=== PATIENT | male | born 1950 | race Caucasian/White ===

== ENCOUNTER 2020-09-28 15:49 | Outpatient (REF) | payer MEDICARE, MEDICAID, SELFPAY ==
[2020-09-28 13:50] LABS: Abs Immature Grans 0.04 10^3/uL (0.0-0.06); Absolute Basophil Count 0.09 10^3/uL (0.0-0.2); Absolute Eosinophil Count 0.18 10^3/uL (0.0-0.7); Absolute Lymphocyte Count 1.68 10^3/uL (1.2-3.4); Absolute Monocyte Count 0.87 10^3/uL (0.1-0.8); Absolute Neutrophil Count 5.02 10^3/uL (1.2-6.7); Basophils % 1.1; Eosinophils % 2.3; HCT 35.5 % (40.0-50.0); HGB 12.1 g/dL (13.5-17.5); Immature Grans % 0.5; Lymphocytes % 21.3; MCH 33.2 pg (27.0-33.0); MCHC 34.1 % (32.0-36.0); MCV 97.3 fL (80-95); MPV 11.2 fL (8.0-11.0); Neutrophils % 63.8; Nucleated RBC 0 %; Platelet Count 318 10^3/uL (130-400); RBC 3.65 10^6/uL (4.36-5.78); RDW 11.6 % (11.8-14.1); RDW-SD 41.3 fL; WBC 7.88 10^3/uL (4.4-10.8)
[2020-09-28 13:57] LABS: Iron 103 ug/dL (65-175); Total Iron Binding Capacity 184 ug/dL (250-450); Transferrin Sat 56 % (20-55)
[2020-09-28 14:34] LABS: ALT 23 U/L (16-63); AST 26 U/L (15-37); Alkaline Phosphatase 89 U/L (46-116); Anion Gap 9.7 mmol/L (3-11); BUN 8 mg/dL (7-18); Bilirubin, Total 0.4 mg/dL (0.2-1.0); CO2 25.3 mmol/L (21.0-32.0); CREATININE 0.7 mg/dL (0.70-1.30); Calcium 8.9 mg/dL (8.5-10.1); Chloride 92 mmol/L (98-107); Folate 19.9 ng/mL (8.6-20.0); Glucose 93 mg/dL (74-106); Magnesium 1.7 mg/dL (1.8-2.4); Potassium 4.6 mmol/L (3.5-5.1); Sodium 127 mmol/L (136-145); TSH (W/Ref FT4) 1.02 uIU/mL (0.36-3.74); Total Protein 7.4 g/dL (6.4-8.2); Vitamin B12 281 pg/mL (193-986)
[2020-09-28 14:47] LABS: Ferritin 1291 ng/mL (26-388)
== END 2020-09-28 15:50 | disposition home or self-care (01) ==
LOC: LBN 15:49
PROVIDERS: Visit Provider Internal Medicine
DX: I89.0 Lymphedema, not elsewhere classified (principal); I25.10 Atherosclerotic heart disease of native coronary artery without angina pectoris; D64.9 Anemia, unspecified
CPT/HCPCS: 80053; 82607; 82728; 82746; 83540; 83550; 83735; 84443; 85025

== ENCOUNTER 2020-10-04 15:39 | Outpatient (REF) | payer MEDICARE, MEDICAID, SELFPAY ==
[2020-10-04 16:52] LABS: Anion Gap 7.6 mmol/L (3-11); BUN 8 mg/dL (7-18); CO2 25.4 mmol/L (21.0-32.0); CREATININE 0.6 mg/dL (0.70-1.30); Calcium 8.8 mg/dL (8.5-10.1); Chloride 98 mmol/L (98-107); Glucose 95 mg/dL (74-106); Potassium 4.5 mmol/L (3.5-5.1); Sodium 131 mmol/L (136-145)
== END 2020-10-04 15:40 | disposition home or self-care (01) ==
LOC: LBN 15:39
PROVIDERS: Visit Provider Internal Medicine
DX: E83.42 Hypomagnesemia (principal); R62.7 Adult failure to thrive; M62.81 Muscle weakness (generalized)
CPT/HCPCS: 80048

== ENCOUNTER 2020-10-12 16:08 | Outpatient (REF) | payer MEDICARE, MEDICAID, SELFPAY ==
[2020-10-12 17:04] LABS: BUN 9 mg/dL (7-18); CREATININE 0.6 mg/dL (0.70-1.30); Calcium 8.8 mg/dL (8.5-10.1); Chloride 98 mmol/L (98-107); Glucose 98 mg/dL (74-106); Potassium 4.3 mmol/L (3.5-5.1); Sodium 130 mmol/L (136-145)
== END 2020-10-12 16:09 | disposition home or self-care (01) ==
LOC: LBN 16:08
PROVIDERS: Visit Provider Nurse Practitioner Gerontology
DX: E87.8 Other disorders of electrolyte and fluid balance, not elsewhere classified (principal)
CPT/HCPCS: 80048

== ENCOUNTER 2021-01-15 18:52 | Outpatient (REF) | payer MEDICARE, MEDICAID, SELFPAY ==
[2021-01-15 14:26] LABS: ALT 22 U/L (16-63); AST 18 U/L (15-37); Albumin 2.9 g/dL (3.4-5.0); Alkaline Phosphatase 101 U/L (46-116); Anion Gap 6.7 mmol/L (3-11); BUN 10 mg/dL (7-18); Bilirubin, Total 0.3 mg/dL (0.2-1.0); CO2 30.3 mmol/L (21.0-32.0); CREATININE 0.6 mg/dL (0.70-1.30); Calcium 8.5 mg/dL (8.5-10.1); Chloride 93 mmol/L (98-107); Glucose 85 mg/dL (74-106); Potassium 4.3 mmol/L (3.5-5.1); Sodium 130 mmol/L (136-145); Total Protein 7.1 g/dL (6.4-8.2)
== END 2021-01-15 18:53 | disposition home or self-care (01) ==
LOC: LBN 18:52
PROVIDERS: Visit Provider Nurse Practitioner Gerontology
DX: E87.1 Hypo-osmolality and hyponatremia (principal); E83.42 Hypomagnesemia; K70.9 Alcoholic liver disease, unspecified; R62.7 Adult failure to thrive
CPT/HCPCS: 80053

== ENCOUNTER 2021-01-22 18:11 | Outpatient (REF) | payer MEDICARE, MEDICAID, SELFPAY ==
[2021-01-22 19:44] LABS: Anion Gap 6.7 mmol/L (3-11); BUN 9 mg/dL (7-18); CO2 29.3 mmol/L (21.0-32.0); CREATININE 0.5 mg/dL (0.70-1.30); Calcium 8.6 mg/dL (8.5-10.1); Chloride 97 mmol/L (98-107); Glucose 97 mg/dL (74-106); Potassium 3.9 mmol/L (3.5-5.1); Sodium 133 mmol/L (136-145)
== END 2021-01-22 18:12 | disposition home or self-care (01) ==
LOC: LBN 18:11
PROVIDERS: Visit Provider Internal Medicine
DX: R60.9 Edema, unspecified (principal); I89.0 Lymphedema, not elsewhere classified
CPT/HCPCS: 80048

== ENCOUNTER 2021-03-20 19:36 | Outpatient (REF) | payer MEDICARE, MEDICAID, SELFPAY ==
[2021-03-20 17:18] LABS: ALT 29 U/L (16-63); AST 26 U/L (15-37); Albumin 3.3 g/dL (3.4-5.0); Alkaline Phosphatase 94 U/L (46-116); Anion Gap 8.8 mmol/L (3-11); BUN 15 mg/dL (7-18); Bilirubin, Total 0.2 mg/dL (0.2-1.0); CO2 26.2 mmol/L (21.0-32.0); CREATININE 0.9 mg/dL (0.70-1.30); Calcium 8.9 mg/dL (8.5-10.1); Chloride 94 mmol/L (98-107); Glucose 98 mg/dL (74-106); Potassium 4.1 mmol/L (3.5-5.1); Sodium 129 mmol/L (136-145); Total Protein 7.4 g/dL (6.4-8.2)
== END 2021-03-20 19:37 | disposition home or self-care (01) ==
LOC: LBN 19:36
PROVIDERS: Visit Provider Nurse Practitioner Gerontology
DX: E87.1 Hypo-osmolality and hyponatremia (principal); E83.42 Hypomagnesemia; K70.9 Alcoholic liver disease, unspecified
CPT/HCPCS: 80053

== ENCOUNTER 2021-03-26 16:36 | Outpatient (REF) | payer MEDICARE, MEDICAID, SELFPAY ==
[2021-03-26 20:07] LABS: Abs Immature Grans 0.03 10^3/uL (0.0-0.06); Absolute Basophil Count 0.01 10^3/uL (0.0-0.2); Absolute Lymphocyte Count 0.75 10^3/uL (1.2-3.4); Absolute Monocyte Count 0.46 10^3/uL (0.1-0.8); Absolute Neutrophil Count 8.09 10^3/uL (1.2-6.7); Basophils % 0.1; HCT 38.3 % (40.0-50.0); HGB 12.8 g/dL (13.5-17.5); Immature Grans % 0.3; MCH 32.6 pg (27.0-33.0); MCHC 33.4 % (32.0-36.0); MCV 97.5 fL (80-95); Monocytes % 4.9; Neutrophils % 86.7; Nucleated RBC 0 %; Platelet Count 209 10^3/uL (130-400); RBC 3.93 10^6/uL (4.36-5.78); RDW 12.9 % (11.8-14.1); RDW-SD 46.4 fL; WBC 9.34 10^3/uL (4.4-10.8)
[2021-03-26 20:30] LABS: Vitamin D 25 Total 17.9 ng/mL (30-100)
[2021-03-26 20:44] LABS: BUN 8 mg/dL (7-18); CREATININE 0.6 mg/dL (0.70-1.30); Calcium 8.6 mg/dL (8.5-10.1); Chloride 89 mmol/L (98-107); Ferritin 1793 ng/mL (26-388); Folate > 20.0 ng/mL (8.6-20.0); Glucose 124 mg/dL (74-106); Iron 101 ug/dL (65-175); Magnesium 1.6 mg/dL (1.8-2.4); Potassium 3.6 mmol/L (3.5-5.1); Sodium 128 mmol/L (136-145); Vitamin B12 549 pg/mL (193-986)
== END 2021-03-26 16:37 | disposition home or self-care (01) ==
LOC: LBN 16:36
PROVIDERS: Visit Provider Nurse Practitioner Gerontology
DX: K70.9 Alcoholic liver disease, unspecified (principal); I89.0 Lymphedema, not elsewhere classified; E87.1 Hypo-osmolality and hyponatremia; R53.1 Weakness; J44.9 Chronic obstructive pulmonary disease, unspecified
CPT/HCPCS: 80048; 82306; 82607; 82728; 82746; 83540; 83735; 85025

== ENCOUNTER 2021-04-10 15:43 | Outpatient (REF) | payer MEDICARE, MEDICAID, SELFPAY ==
[2021-04-10 15:14] LABS: ALT 24 U/L (16-63); AST 17 U/L (15-37); Albumin 2.8 g/dL (3.4-5.0); Alkaline Phosphatase 92 U/L (46-116); Anion Gap 4.9 mmol/L (3-11); BUN 15 mg/dL (7-18); Bilirubin, Total 0.4 mg/dL (0.2-1.0); CO2 30.1 mmol/L (21.0-32.0); CREATININE 0.6 mg/dL (0.70-1.30); Calcium 8.3 mg/dL (8.5-10.1); Chloride 98 mmol/L (98-107); Ferritin 927 ng/mL (26-388); Glucose 95 mg/dL (74-106); Potassium 4.4 mmol/L (3.5-5.1); Sodium 133 mmol/L (136-145); Total Protein 6.5 g/dL (6.4-8.2)
== END 2021-04-10 15:44 | disposition home or self-care (01) ==
LOC: LBN 15:43
PROVIDERS: Visit Provider Nurse Practitioner Gerontology
DX: K70.9 Alcoholic liver disease, unspecified (principal); R53.1 Weakness; U07.1 COVID-19; E83.42 Hypomagnesemia
CPT/HCPCS: 80053; 82728

== ENCOUNTER 2021-04-17 13:50 | Outpatient (REF) | payer MEDICARE, MEDICAID, SELFPAY ==
[2021-04-17 11:45] LABS: Anion Gap 8.3 mmol/L (3-11); BUN 7 mg/dL (7-18); CO2 26.7 mmol/L (21.0-32.0); CREATININE 0.5 mg/dL (0.70-1.30); Calcium 8.6 mg/dL (8.5-10.1); Chloride 90 mmol/L (98-107); Glucose 98 mg/dL (74-106); NT-proBNP 2407 pg/mL (<300); Potassium 5.1 mmol/L (3.5-5.1); Sodium 125 mmol/L (136-145)
== END 2021-04-17 13:51 | disposition home or self-care (01) ==
LOC: LBN 13:50
PROVIDERS: Visit Provider Nurse Practitioner Gerontology
DX: I50.9 Heart failure, unspecified (principal); E87.8 Other disorders of electrolyte and fluid balance, not elsewhere classified
CPT/HCPCS: 80048; 83880

== ENCOUNTER 2021-04-20 14:26 | Outpatient (REF) | payer MEDICARE, MEDICAID, SELFPAY ==
[2021-04-20 16:56] LABS: Anion Gap 4.5 mmol/L (3-11); BUN 8 mg/dL (7-18); CO2 29.5 mmol/L (21.0-32.0); CREATININE 0.6 mg/dL (0.70-1.30); Calcium 8.6 mg/dL (8.5-10.1); Chloride 92 mmol/L (98-107); Glucose 100 mg/dL (74-106); NT-proBNP 1158 pg/mL (<300); Potassium 5.1 mmol/L (3.5-5.1); Sodium 126 mmol/L (136-145)
== END 2021-04-20 14:27 | disposition home or self-care (01) ==
LOC: LBN 14:26
PROVIDERS: Visit Provider Nurse Practitioner Gerontology
DX: I50.9 Heart failure, unspecified (principal); E87.1 Hypo-osmolality and hyponatremia
CPT/HCPCS: 80048; 83880

== ENCOUNTER 2021-05-01 14:34 | Outpatient (REF) | payer MEDICARE, MEDICAID, SELFPAY ==
[2021-05-01 16:02] LABS: ALT 16 U/L (16-63); AST 21 U/L (15-37); Albumin 3.3 g/dL (3.4-5.0); Alkaline Phosphatase 85 U/L (46-116); Anion Gap 6.7 mmol/L (3-11); BUN 10 mg/dL (7-18); Bilirubin, Total 0.4 mg/dL (0.2-1.0); CO2 27.3 mmol/L (21.0-32.0); CREATININE 0.5 mg/dL (0.70-1.30); Calcium 8.8 mg/dL (8.5-10.1); Chloride 92 mmol/L (98-107); Glucose 88 mg/dL (74-106); Potassium 4.7 mmol/L (3.5-5.1); Sodium 126 mmol/L (136-145); Total Protein 7.7 g/dL (6.4-8.2)
== END 2021-05-01 14:35 | disposition home or self-care (01) ==
LOC: LBN 14:34
PROVIDERS: Visit Provider Nurse Practitioner Gerontology
DX: I25.10 Atherosclerotic heart disease of native coronary artery without angina pectoris (principal); E87.8 Other disorders of electrolyte and fluid balance, not elsewhere classified
CPT/HCPCS: 80053

== ENCOUNTER 2021-05-02 09:24 | Outpatient (CLI) | payer MEDICARE, MEDICAID, SELFPAY ==
--- NOTE | 2021-05-02 09:45 | RT.EKG_ITS ---
APPROVED REPORT Exam: Resting ECG Reason for Exam: [facility] Patient Location: O HR:60 bpm ECG Measurements Heart Rate 60 AXIS MN 118 P [id number] QRSd 160 QRS -32 QT 495 T 100 QTc 495 Conclusion A-V dual-paced rhythm with some inhibition...atrial and/or vent inhibition No further analysis attempted due to paced rhythm
== END 2021-05-02 09:25 | disposition home or self-care (01) ==
LOC: DI.CARD 09:55
PROVIDERS: Visit Provider Internal Medicine Cardiovascular Disease
DX: Z95.0 Presence of cardiac pacemaker (principal)
CPT/HCPCS: 93010

== ENCOUNTER → 2021-05-02 09:24 | Outpatient (BNVA) | payer MEDICARE, MEDICAID, SELFPAY | PROVIDERS: Visit Provider Internal Medicine Cardiovascular Disease | DX: Z95.0 Presence of cardiac pacemaker (principal) | CPT/HCPCS: 93005; 93280; 99204 ==

== ENCOUNTER 2021-05-08 16:33 | Outpatient (REF) | payer MEDICARE, MEDICAID, SELFPAY ==
[2021-05-08 14:30] LABS: ALT 18 U/L (16-63); AST 19 U/L (15-37); Albumin 3.2 g/dL (3.4-5.0); Alkaline Phosphatase 88 U/L (46-116); Anion Gap 8.2 mmol/L (3-11); BUN 11 mg/dL (7-18); Bilirubin, Total 0.4 mg/dL (0.2-1.0); CO2 25.8 mmol/L (21.0-32.0); CREATININE 0.5 mg/dL (0.70-1.30); Calcium 8.6 mg/dL (8.5-10.1); Chloride 93 mmol/L (98-107); Glucose 110 mg/dL (74-106); NT-proBNP 544 pg/mL (<300); Potassium 4.8 mmol/L (3.5-5.1); Sodium 127 mmol/L (136-145); Total Protein 7.6 g/dL (6.4-8.2)
== END 2021-05-08 16:34 | disposition home or self-care (01) ==
LOC: LBN 16:33
PROVIDERS: Visit Provider Nurse Practitioner Gerontology
DX: I25.10 Atherosclerotic heart disease of native coronary artery without angina pectoris (principal); E87.8 Other disorders of electrolyte and fluid balance, not elsewhere classified; I50.9 Heart failure, unspecified
CPT/HCPCS: 80053; 83880

== ENCOUNTER 2021-06-19 15:33 | Outpatient (REF) | payer MEDICARE, MEDICAID, SELFPAY ==
[2021-06-19 19:32] LABS: Abs Immature Grans 0.18 10^3/uL (0.0-0.06); Absolute Basophil Count 0.05 10^3/uL (0.0-0.2); Absolute Eosinophil Count 0.05 10^3/uL (0.0-0.7); Absolute Monocyte Count 1.84 10^3/uL (0.1-0.8); Basophils % 0.3; Eosinophils % 0.3; HCT 34.8 % (40.0-50.0); HGB 11.5 g/dL (13.5-17.5); Lymphocytes % 7.8; MCV 99.7 fL (80-95); MPV 11.8 fL (8.0-11.0); Monocytes % 10.2; Neutrophils % 80.4; Platelet Count 244 10^3/uL (130-400); RBC 3.49 10^6/uL (4.36-5.78); RDW-SD 47.8 fL; WBC 18.06 10^3/uL (4.4-10.8)
[2021-06-19 19:33] LABS: Absolute Lymphocyte Count 1.41 10^3/uL (1.2-3.4); Absolute Neutrophil Count 14.52 10^3/uL (1.2-6.7)
[2021-06-19 20:00] LABS: Diff Comment Agrees w/ Instrument; RBC Morphology Normal
[2021-06-19 20:47] LABS: ALT 163 U/L (16-63); AST 96 U/L (15-37); Albumin 3.2 g/dL (3.4-5.0); Alkaline Phosphatase 89 U/L (46-116); Anion Gap 11.5 mmol/L (3-11); BUN 39 mg/dL (7-18); Bilirubin, Total 0.7 mg/dL (0.2-1.0); CO2 24.5 mmol/L (21.0-32.0); CREATININE 1.9 mg/dL (0.70-1.30); Calcium 8.8 mg/dL (8.5-10.1); Chloride 92 mmol/L (98-107); Estimated GFR 35.22 (mL/min/1.73m2); Glucose 118 mg/dL (74-106); Potassium 3.8 mmol/L (3.5-5.1); Sodium 128 mmol/L (136-145); Total Protein 7.6 g/dL (6.4-8.2)
[2021-06-21 05:27] LABS: Vitamin D 25 Total 26.3 ng/mL (30-100)
== END 2021-06-19 15:34 | disposition home or self-care (01) ==
LOC: LBN 15:33
PROVIDERS: Visit Provider Internal Medicine
DX: J44.9 Chronic obstructive pulmonary disease, unspecified (principal)
CPT/HCPCS: 80053; 82306; 85025

== ENCOUNTER 2021-06-20 10:47 | Inpatient (IN) | payer MEDICARE, MEDICAID, SELFPAY ==
[2021-06-20] VITALS (45 sets, daily range): BP systolic 94–123; BP diastolic 43–86; PULSE 41–73; RESP 16–18; TEMP 36.4–37; O2SAT 86–98
--- NOTE | 2021-06-20 11:14 | ED.GENADUL_ITS ---
Discharge Plan Disposition Patient Disposition: [facility] INPATIENT Condition: Stable Discharge Details Clinical Impression: Acute cholecystitis, Sacroiliitis, History of empyema of pleura Admit Date/Time: 06/20/21 17:19 Admit Provider: Virginia Price Attending Provider: Virginia Price Primary Care Provider: Unknown,Unknown ED Provider: Radha Vargas Discharge Data Discharge Date/Time-TO BE ENTERED AT DEPARTURE: 06/20/21 19:22 Medical Decision Making 06/20/21 Dr. Vargas: 1600 --please see Dr. Alegria's note for initial presentation, exam and plan. Case endorsed to follow-up with [facility] general surgery Dr. Carver after he reviewed images with [facility] pulmonology to determine acute versus chronic nature of empyema and whether patient needs urgent transfer to [facility] for surgery for his acute cholecysitis. 70-year-old male who is DNR/DNI from the [facility] with a history of daily alcohol use, obesity, COPD, hypertension, coronary artery disease, depression who was sent from the [facility] for abdominal pain and abnormal LFTs. Work-up noted a white blood cell count of 13, sodium of 123, AST of 61, ALT of 121, alk phos of 96 and normal lipase. Negative UA. COVID-negative. CT abdomen/pelvis noted: Impression: Appearance of the gallbladder is suggestive of acute cholecystitis, no biliary dilatation seen. Left pleural effusion versus empyema, please see above discussion.? Question prior tuberculosis with marked pleural calcification on the right. Multiple soft tissue fluid collections, possible abscesses, right and left buttocks, question associated osteomyelitis of the left iliac bone posteriorly at the level of the SI joint as described above. Dr. Alegria reported to discuss with Dr. Price here who requested potential transfer as patient was noted to have empyema. Patient has been reported to be stable from a respiratory standpoint without complaint of shortness of breath. Dr. Alegria was able to speak with Dr. Carver just prior to leaving and after review with pulmonology, there is no acute change in his CT imaging compared to prior and there is no acute indication for transfer at this time. Case discussed with Dr. Price who discussed with anesthesia and she will admit here. Patient reassessed and he is currently pain-free. His abdomen is soft and nontender without signs of rigidity or guarding. Medical Records Medical records reviewed: Yes I reviewed the patient's medical records. Imaging Data Radiologic Study: Radiologist's impression: CT ABDOMEN ? PELVIS W CLINICAL HISTORY:? abd pain TECHNIQUE:? COMPARISON:? No exams were available for comparison FINDINGS: CT examination of the abdomen and pelvis was performed with bolus infusion of 100 cc of Omnipaque 350. Images obtained through the lung bases show right pleural calcification and pleural blunting.? There is a left pleural fluid collection which is thick- walled and which is incompletely imaged, this measures up to about 12 x 6 cm in diameter and there is associated apparent atelectasis or consolidation versus scarring the left lower lobe. Additional evaluation with chest CT should considered. Note is made of coronary artery calcification and apparent cardiac pacemaker period Liver is grossly unremarkable in appearance.? No biliary dilatation.? There is mildly distended thick-walled gallbladder with small pericholecystic fluid collection and associated fat edema, findings are suggestive of acute cholecystitis. Pancreas appears intact.. Adrenals appear normal bilaterally. Kidneys appear normal with no evidence of renal mass, hydronephrosis, or nephrolithiasis.? Unremarkable bladder. There is no evidence of abdominal or pelvic adenopathy. Abdominal aorta is of normal diameter and no abnormality is seen involving major visceral branches.. Appendix is normal. No evidence diverticulitis or bowel obstruction.? The rectum is somewhat thick-walled, info inflammatory or neoplastic disease not excluded, correlation with sigmoidoscopy or colonoscopy suggested. No significant abdominal wall hernia seen.? Note is made fluid collections in the right buttock which are of intermediate attenuation, approximately 20 mean Hounsfield units.? Largest of these measures about 6 cm in diameter.? Findings are nonspecific but possibility of abscess is raised.? These number at least 5.? The largest lies adjacent to the tip of the right iliac which has associated well-corticated ossicles adjacent to the.? No gross bony erosion seen. There is also a fluid collection seen at the level of the iliac bone at and above SI joint level on the left measuring 10 x 8 x 2 cm and extending across the midline adjacent to posterior aspect of the sacrum and with an apparent associated erosion and mild bony overgrowth the associated iliac.? This has a thick wall and is of intermediate attenuation and contains some calcification, again suspicious for abscess. Impression: Appearance of the gallbladder is suggestive of acute cholecystitis, no biliary dilatation seen. Left pleural effusion versus empyema, please see above discussion.? Question prior tuberculosis with marked pleural calcification on the right. Multiple soft tissue fluid collections, possible abscesses, right and left buttocks, question associated osteomyelitis of the left iliac bone posteriorly at the level of the SI joint as described above. Lab Data Lab results reviewed: Yes I reviewed the patient's lab results. Labs: 06/20/21 15:10 Blood Blood Culture - Pending 06/20/21 15:10 Blood Blood Culture - Pending Laboratory Tests Range/Units 06/20/21 06/20/21 06/20/21 11:25 11:25 11:25 WBC (4.4-10.8) 10^3/uL 13.19 H RBC (4.36-5.78) 10^6/uL 3.43 L Hgb (13.5-17.5) g/dL 11.3 L Hct (40.0-50.0) % 33.2 L MCV (80-95) fL 96.8 H MCH (27.0-33.0) pg 32.9 MCHC (32.0-36.0) % 34.0 RDW (11.8-14.1) % 12.4 Plt Count (130-400) 10^3/uL 271 MPV (8.0-11.0) fL 11.2 H Immature Gran % 0.0 Neutrophils % 82.0 Band Neutrophils % 0 Lymphocytes % 4.0 Atypical Lymphs % 4 Monocytes % 10.0 Eosinophils % 0.0 Basophils % 0.0 Nucleated RBC % (0.0-0.3) % 0.0 Absolute Neutrophils (1.2-6.7) 10^3/uL 10.82 H Absolute Lymphocytes (1.2-3.4) 10^3/uL 1.06 L Absolute Monocytes (0.1-0.8) 10^3/uL 1.32 H Absolute Eosinophils (0.0-0.7) 10^3/uL 0.00 Absolute Basophils (0.0-0.2) 10^3/uL 0.00 RBC Morphology Normal PT (9.3-11.0) sec INR (0.9-1.1) APTT (21.0-27.5) sec Sodium (136-145) mmol/L 123 L* Potassium (3.5-5.1) mmol/L 3.7 Chloride (98-107) mmol/L 88 L Carbon Dioxide (21.0-32.0) mmol/L 24.4 Anion Gap (3-11) mmol/L 10.6 BUN (7-18) mg/dL 39 H Creatinine (0.70-1.30) mg/dL 1.0 D Estimated GFR/1.73 m2 (mL/min/1.73m2) >= 60.00 Glucose (74-106) mg/dL 109 H Calcium (8.5-10.1) mg/dL 8.9 Magnesium (1.8-2.4) mg/dL 2.2 Total Bilirubin (0.2-1.0) mg/dL 0.6 0.5 Conjugated Bilirubin (0.0-0.2) mg/dL 0.2 AST (15-37) U/L 59 H 61 H ALT (16-63) U/L 118 H 121 H Alkaline Phosphatase (46-116) U/L 94 96 Total Protein (6.4-8.2) g/dL 8.4 H 8.3 H Albumin (3.4-5.0) g/dL 3.0 L 2.9 L Lipase (73-393) U/L 45 Urine Color (Yellow) Urine Clarity (Clear) Urine pH (5-8) Ur Specific [place] (1.005-1.025) Urine Protein (Negative) mg/dL Urine Ketones (Negative) mg/dL Urine Blood (Negative) Urine Nitrite (Negative) Urine Bilirubin (Negative) Urine Urobilinogen (Up TO 0.2) EU/dL Ur Leukocyte Esterase (Negative) Urine RBC (0-2) HPF Urine WBC (0-5) HPF Ur Epithelial Cells (Negative) HPF Urine Crystals (Negative) HPF Urine Bacteria (Negative) HPF Urine Casts (Negative) LPF Urine Mucus (Negative) Urine Other (Negative) Ur Culture Indicated? Urine Glucose (Negative) mg/dL Ethyl Alcohol (<10) mg/dL < 3.0 COVID-19 Source SARS-CoV-2 (PCR) (Negative) Range/Units 06/20/21 06/20/21 06/20/21 13:11 14:00 15:15 WBC (4.4-10.8) 10^3/uL RBC (4.36-5.78) 10^6/uL Hgb (13.5-17.5) g/dL Hct (40.0-50.0) % MCV (80-95) fL MCH (27.0-33.0) pg MCHC (32.0-36.0) % RDW (11.8-14.1) % Plt Count (130-400) 10^3/uL MPV (8.0-11.0) fL Immature Gran % Neutrophils % Band Neutrophils % Lymphocytes % Atypical Lymphs % Monocytes % Eosinophils % Basophils % Nucleated RBC % (0.0-0.3) % Absolute Neutrophils (1.2-6.7) 10^3/uL Absolute Lymphocytes (1.2-3.4) 10^3/uL Absolute Monocytes (0.1-0.8) 10^3/uL Absolute Eosinophils (0.0-0.7) 10^3/uL Absolute Basophils (0.0-0.2) 10^3/uL RBC Morphology PT (9.3-11.0) sec INR (0.9-1.1) APTT (21.0-27.5) sec Sodium (136-145) mmol/L Potassium (3.5-5.1) mmol/L Chloride (98-107) mmol/L Carbon Dioxide (21.0-32.0) mmol/L Anion Gap (3-11) mmol/L BUN (7-18) mg/dL Creatinine (0.70-1.30) mg/dL Estimated GFR/1.73 m2 (mL/min/1.73m2) Glucose (74-106) mg/dL Calcium (8.5-10.1) mg/dL Magnesium (1.8-2.4) mg/dL Total Bilirubin (0.2-1.0) mg/dL 0.6 Conjugated Bilirubin (0.0-0.2) mg/dL 0.2 AST (15-37) U/L ALT (16-63) U/L Alkaline Phosphatase (46-116) U/L Total Protein (6.4-8.2) g/dL Albumin (3.4-5.0) g/dL Lipase (73-393) U/L Urine Color (Yellow) Yellow Urine Clarity (Clear) Clear Urine pH (5-8) 6.0 Ur Specific [place] (1.005-1.025) 1.010 Urine Protein (Negative) mg/dL Negative Urine Ketones (Negative) mg/dL Negative Urine Blood (Negative) Trace-intact H Urine Nitrite (Negative) Negative Urine Bilirubin (Negative) Negative Urine Urobilinogen (Up TO 0.2) EU/dL 0.2 Ur Leukocyte Esterase (Negative) Negative Urine RBC (0-2) HPF 0-2 Urine WBC (0-5) HPF Negative Ur Epithelial Cells (Negative) HPF Rare Urine Crystals (Negative) HPF Negative Urine Bacteria (Negative) HPF Few Urine Casts (Negative) LPF Negative Urine Mucus (Negative) Negative Urine Other (Negative) Negative Ur Culture Indicated? No Urine Glucose (Negative) mg/dL Negative Ethyl Alcohol (<10) mg/dL COVID-19 Source Nasal/Nares SARS-CoV-2 (PCR) (Negative) Negative Range/Units 06/20/21 15:15 WBC (4.4-10.8) 10^3/uL RBC (4.36-5.78) 10^6/uL Hgb (13.5-17.5) g/dL Hct (40.0-50.0) % MCV (80-95) fL MCH (27.0-33.0) pg MCHC (32.0-36.0) % RDW (11.8-14.1) % Plt Count (130-400) 10^3/uL MPV (8.0-11.0) fL Immature Gran % Neutrophils % Band Neutrophils % Lymphocytes % Atypical Lymphs % Monocytes % Eosinophils % Basophils % Nucleated RBC % (0.0-0.3) % Absolute Neutrophils (1.2-6.7) 10^3/uL Absolute Lymphocytes (1.2-3.4) 10^3/uL Absolute Monocytes (0.1-0.8) 10^3/uL Absolute Eosinophils (0.0-0.7) 10^3/uL Absolute Basophils (0.0-0.2) 10^3/uL RBC Morphology PT (9.3-11.0) sec 10.4 INR (0.9-1.1) 1.0 APTT (21.0-27.5) sec 27.4 Sodium (136-145) mmol/L Potassium (3.5-5.1) mmol/L Chloride (98-107) mmol/L Carbon Dioxide (21.0-32.0) mmol/L Anion Gap (3-11) mmol/L BUN (7-18) mg/dL Creatinine (0.70-1.30) mg/dL Estimated GFR/1.73 m2 (mL/min/1.73m2) Glucose (74-106) mg/dL Calcium (8.5-10.1) mg/dL Magnesium (1.8-2.4) mg/dL Total Bilirubin (0.2-1.0) mg/dL Conjugated Bilirubin (0.0-0.2) mg/dL AST (15-37) U/L ALT (16-63) U/L Alkaline Phosphatase (46-116) U/L Total Protein (6.4-8.2) g/dL Albumin (3.4-5.0) g/dL Lipase (73-393) U/L Urine Color (Yellow) Urine Clarity (Clear) Urine pH (5-8) Ur Specific [place] (1.005-1.025) Urine Protein (Negative) mg/dL Urine Ketones (Negative) mg/dL Urine Blood (Negative) Urine Nitrite (Negative) Urine Bilirubin (Negative) Urine Urobilinogen (Up TO 0.2) EU/dL Ur Leukocyte Esterase (Negative) Urine RBC (0-2) HPF Urine WBC (0-5) HPF Ur Epithelial Cells (Negative) HPF Urine Crystals (Negative) HPF Urine Bacteria (Negative) HPF Urine Casts (Negative) LPF Urine Mucus (Negative) Urine Other (Negative) Ur Culture Indicated? Urine Glucose (Negative) mg/dL Ethyl Alcohol (<10) mg/dL COVID-19 Source SARS-CoV-2 (PCR) (Negative) HPI General Date/Time Provider Initiated Documentation: 06/20/21 11:14 . HPI Narrative: 70-year-old gentleman sent from long-term for evaluation of abnormal lab. Transaminases were mildly elevated. Patient had hyponatremia. White count of 18. The patient actually has no complaints here in the emergency department. He unable to tell me why he was sent to the emergency department. According to nursing report he does drink 2 beers a day. He has a history of CHF Call from [facility] at [facility] reveals that the patient has been having some intermittent abd painand decrease PO intake for several days. No n/v No F/No chills Related Data Home Medications Medication Instructions Recorded Confirmed acetaminophen 500 mg tablet 1,000 mg PO TID tab 01/27/22 04/20/22 (Tylenol Extra Strength) albuterol sulfate 90 mcg/actuation 2 inh INHALATION Q4H PRN 03/29/21 06/20/21 breath activated powder inhaler calcium carbonate 215 mg calcium 430 mg PO QID tab 03/29/21 06/20/21 (500 mg) chewable tablet (Antacid (calcium carbonate)) calcium citrate 315 mg-vitamin D3 1 tab PO DAILY 03/29/21 06/20/21 5 mcg (200 unit) tablet (Calcium Citrate + D) fluticasone propionate 50 1 spray INTRANASAL BID 03/29/21 06/20/21 mcg/actuation nasal spray,suspension ibuprofen 600 mg tablet 600 mg PO BID PRN tab 03/29/21 06/20/21 lisinopril 10 mg tablet 10 mg PO DAILY 03/29/21 06/20/21 magnesium oxide 400 mg PO BID 03/29/21 06/20/21 pantoprazole 40 mg tablet,delayed 40 mg PO DAILY 03/29/21 06/20/21 release polyethylene glycol 3350 17 gram 17 g PO DAILY 03/29/21 06/20/21 oral powder packet (Miralax) sennosides 8.6 mg-docusate sodium 1 tab-cap PO BID tab 03/29/21 06/20/21 50 mg tablet (Senexon-S) sertraline 25 mg tablet 25 mg PO DAILY 03/29/21 06/20/21 vitamin B complex (Ultra B-100 1 tab PO DAILY 03/29/21 06/20/21 Complex) fluticasone fur. 200 mcg-umeclid 1 inh INHALATION DAILY 05/02/21 06/20/21 62.5 mcg-vilant 25 mcg inhalat.powder (Trelegy Ellipta) metoprolol succinate 200 mg 200 mg PO DAILY 05/02/21 06/20/21 tablet,extended release 24 hr spironolactone 25 mg tablet 25 mg PO BID 05/02/21 06/20/21 benzonatate 200 mg capsule 200 mg PO TID PRN 05/10/21 05/10/21 ergocalciferol (vitamin D2) 1,250 1,250 mcg PO QWEEK 05/10/21 05/10/21 mcg (50,000 unit) capsule (Vitamin D2) melatonin 3 mg capsule 3 mg PO HS 05/10/21 06/20/21 Allergies Allergy/AdvReac Type Severity Reaction Status Date / Time No Known Allergies Allergy Verified 06/20/21 11:12 General Stated Complaint: Abd Prob INDY: 3 Review of Systems Narrative: Constitutional negative for fevers chills, negative for malaise. HEENT negative. Cardiovascular no chest pain. No angina. Respiratory no cough.. GI intermittent nausea no vomiting. No abdominal pain. normal urine output. No cvat. Musculoskeletal no myalgia no arthralgias. Skin intact. Neuro no headaches no weakness. 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 Most likely this is inflammatory tissue and not actually fluid. pt has had multiple taps. He was on a prolonged course of IV abx and has failed to resolve. This is a sequelae of this pericardial tamponade following disruption of his RA lead from pacemaker insertion. COPD (chronic obstructive pulmonary disease) (Chronic) Depression (Chronic) Lymphedema (Acute) HTN (hypertension) with goal to be determined (Chronic) Obesity (Chronic) DNR (do not resuscitate) (Acute) Alcohol abuse (Chronic) pt lives at [facility] and is allowed x2 beers a day Presence of cardiac pacemaker (Chronic) [employer] PPM MRI model L111 Serial # [id number] placed dual chamber 04/30/2017 for CHB at [facility]. Complications included pericardial effusion with tamponade and need for reposition R atrial lead 05/16/20 Coronary artery disease (Chronic) Rhinophyma (Acute) Hyponatremia, hypo-osmolarity, or hypo-osmolar hyponatremia (Acute) Vitamin D deficiency (Acute) Medical History CHB (complete heart block) had permanent pacemaker implanted 2017 for this Surgical History History of permanent cardiac pacemaker placement with subsequent repositioning Social History Smoking/Tobacco Use Status: Never Smoking risk assessment performed?: Yes Alcohol Intake: current Alcohol Intake frequency: 0-2 drinks per day Alcohol type: beer Housing: assisted living facility Pets and animals: No Do you feel safe at home: Yes Do you feel safe in your relationship?: Yes Exam Narrative Exam Narrative: Awake alert oriented x3. Cooperative no acute distress pleasant. HEENT no acute findings Chest clear to auscultation bilaterally. Regular rhythm. No murmurs rubs nor gallops. Abdomen soft nondistended nontender. No organomegaly. Back normal inspection. Negative CVAT, mild discompfrt on B SIJ Skin intact, induated movil SQ mass rt iliac creast - no fluctance Neuro grossly intact. Extremities no edema Psych normal affect Course Following discussion with Dr. Sarmiento, I asked Dr Price regarding the findings of cholecystitis. Dr Loja saw the patient in the ED and is requesting that the patient be transferred. [facility] called and case cd/w Dr Carver. The pulmonary findings, SI findings as well as the possible abscesses of the buttucks appear to be chronic problems that have been evaluated at the [facility]. Dr Carver will review the images pulmonary at [facility] to determine if there has been ant interval changes. Vital Signs Vital signs: Vital Signs Temperature 36.5 C 06/20/21 10:49 Pulse 63 06/20/21 10:49 Respiratory Rate 16 06/20/21 10:49 Blood Pressure 112/64 06/20/21 10:49 Pulse Oximetry 94 06/20/21 10:49 Temperature 36.5 C 06/20/21 10:49 Temperature Source Oral 06/20/21 10:49 Pulse 63 06/20/21 10:49 Respiratory Rate 16 06/20/21 10:49 Respiratory Effort 06/20/21 11:05 Blood Pressure 112/64 06/20/21 10:49 Pulse Oximetry 94 06/20/21 10:49 Oxygen Delivery Method Room Air 06/20/21 10:49 Oxygen Flow Rate 0 06/20/21 10:49 Pain Level 0 06/20/21 11:03 Sign Out Sign Out Data: Sign Out Comment: Patient with acute cholecystitis. Seen in consultation by gen surg in the ED. Transfer requested given pulmonary finding as well as possible buttuck abscesses and fluid collection at the SIJ. After discussion with [facility] 's Dr Carver, it is unclear if these findings are chronic. The case is being review by hospitalist and pulmonary service at [facility]. Imaging from today to be compared to images at time of DC from [facility] a few months ago. Dr Carver to call back. Last updated by Delbert Alegria MD at 06/20/21 16:13 PAWSS Have you Been Recently Intoxicated or Drunk Within the Last 30 days?: No Have you Ever Experienced Previous Episodes of Alcohol Withdrawal?: No Have you ever Experienced Withdrawal Seizures?: No Have you ever Experienced Delirium Tremens(DT)s?: No Have you ever undergone Alcohol Rehabilitation Treatment (i.e, inpt ot outpatient treatment programs)?: No Have you ever Experienced Blackouts?: No Have you ever Combined Alcohol with other Downers within the last 90 days?: No Have you ever Combined Alcohol with any other Substance of Abuse during the last 90 days?: No Positive Blood Alcohol level on Presentation? [PCS.BAL]: Unable to Obtain Evidence of Increased Autonomic Activity (i.e. HR>120, tremor, sweating, agitation, nausea)?: No Result: 0
[2021-06-20 11:32] LABS: Abs Immature Grans 0.15 10^3/uL (0.0-0.06); HCT 33.2 % (40.0-50.0); HGB 11.3 g/dL (13.5-17.5); MCH 32.9 pg (27.0-33.0); MCV 96.8 fL (80-95); MPV 11.2 fL (8.0-11.0); Platelet Count 271 10^3/uL (130-400); RBC 3.43 10^6/uL (4.36-5.78); RDW 12.4 % (11.8-14.1); RDW-SD 44.1 fL; WBC 13.19 10^3/uL (4.4-10.8)
[2021-06-20 11:45] LABS: Absolute Neutrophil Count 10.82 10^3/uL (1.2-6.7); Bands % 0
--- NOTE | 2021-06-20 11:45 | DI.CT_ITS ---
Exam(s) CT ABDOMEN PELVIS W EXAM: CT ABDOMEN PELVIS W CLINICAL HISTORY: abd pain TECHNIQUE: COMPARISON: No exams were available for comparison FINDINGS: CT examination of the abdomen and pelvis was performed with bolus infusion of 100 cc of Omnipaque 350 . Images obtained through the lung bases show right pleural calcification and pleural blunting. There is a left pleural fluid collection which is thick-walled and which is incompletely imaged, this measu res up to about 12 x 6 cm in diameter and there is associated apparent atelectasis or consolidation v ersus scarring the left lower lobe. Additional evaluation with chest CT should considered. Note is made of coronary artery calcification and apparent cardiac pacemaker period Liver is grossly unremarkable in appearance. No biliary dilatation. There is mildly distended thick -walled gallbladder with small pericholecystic fluid collection and associated fat edema, findings ar e suggestive of acute cholecystitis. Pancreas appears intact.. . Adrenals appear normal bilaterally. Kidneys appear normal with no evidence of renal mass, hydronephrosis, or nephrolithiasis. Unremarkab le bladder. There is no evidence of abdominal or pelvic adenopathy. Abdominal aorta is of normal diameter and no abnormality is seen involving major visceral branches.. Appendix is normal. No evidence diverticulitis or bowel obstruction. The rectum is somewhat thick-wa lled, info inflammatory or neoplastic disease not excluded, correlation with sigmoidoscopy or colonos copy suggested. No significant abdominal wall hernia seen. Note is made fluid collections in the right buttock which are of intermediate attenuation, approximately 20 mean Hounsfield units. Largest of these measures about 6 cm in diameter. Findings are nonspecific but possibility of abscess is raised. These number at least 5. The largest lies adjacent to the tip of the right iliac which has associated well-corti cated ossicles adjacent to the. No gross bony erosion seen. There is also a fluid collection seen at the level of the iliac bone at and above SI joint level on t he left measuring 10 x 8 x 2 cm and extending across the midline adjacent to posterior aspect of the sacrum and with an apparent associated erosion and mild bony overgrowth the associated iliac. This h as a thick wall and is of intermediate attenuation and contains some calcification, again suspicious for abscess. Impression: Appearance of the gallbladder is suggestive of acute cholecystitis, no biliary dilatation seen. Left pleural effusion versus empyema, please see above discussion. Question prior tuberculosis with marked pleural calcification on the right. Multiple soft tissue fluid collections, possible abscesses, right and left buttocks, question associa chase osteomyelitis of the left iliac bone posteriorly at the level of the SI joint as described above. RADIATION DOSE DELIVERED: 1,156.04mGy.cm Total DLP 1,156.04mGy.cm Total DLP !Error CTDIvol DATA REPOSITORY: All CT scans at this facility are submitted to the National Radiology Data Registry (NRDR) Dose Index Registry (DIR) with the [employer] (A[employer]). RADIATION OPTIMIZATION: All CT scans at this facility use at least one of these dose optimization te chniques: automated exposure control; mA and/or kV adjustment per patient size (includes targeted exa ms where dose is matched to clinical indication); or iterative reconstruction.
[2021-06-20 11:46] LABS: Absolute Lymphocyte Count 1.06 10^3/uL (1.2-3.4); Absolute Monocyte Count 1.32 10^3/uL (0.1-0.8); Atypical Lymphocytes % 4; Diff Comment Manual Differential; RBC Morphology Normal
[2021-06-20 12:01] LABS: ALT 118 U/L (16-63); AST 59 U/L (15-37); Alkaline Phosphatase 94 U/L (46-116); Bilirubin, Direct 0.2 mg/dL (0.0-0.2); Bilirubin, Total 0.6 mg/dL (0.2-1.0); Lipase 45 U/L (73-393); Magnesium 2.2 mg/dL (1.8-2.4); Total Protein 8.4 g/dL (6.4-8.2)
[2021-06-20 12:03] LABS: ALT 121 U/L (16-63); AST 61 U/L (15-37); Albumin 2.9 g/dL (3.4-5.0); Alkaline Phosphatase 96 U/L (46-116); Anion Gap 10.6 mmol/L (3-11); BUN 39 mg/dL (7-18); Bilirubin, Total 0.5 mg/dL (0.2-1.0); CO2 24.4 mmol/L (21.0-32.0); Calcium 8.9 mg/dL (8.5-10.1); Chloride 88 mmol/L (98-107); Glucose 109 mg/dL (74-106); Potassium 3.7 mmol/L (3.5-5.1); Total Protein 8.3 g/dL (6.4-8.2)
[2021-06-20 12:05] LABS: Sodium 123 mmol/L (136-145)
[2021-06-20 12:06] LABS: ETHANOL BLOOD < 3.0 mg/dL (<10)
[2021-06-20] MEDS: Omnipaque 350 MG/ML 100 ML BTL IJ (12:19)
[2021-06-20 13:18] LABS: Bilirubin Negative (Negative); Blood Trace-intact (Negative); Clarity Clear (Clear); Glucose Negative (Negative); Ketones Negative (Negative); Leukocyte Esterase Negative (Negative); Nitrite Negative (Negative); Urobilinogen 0.2 EU/dL (Up TO 0.2)
[2021-06-20 13:31] LABS: WBC Negative HPF (0-5)
[2021-06-20 13:32] LABS: Bacteria Few HPF (Negative); C & S Indicated? No; Casts Negative LPF (Negative); Crystals Negative HPF (Negative); Epithelial Cells Rare HPF (Negative); Mucus Negative (Negative); Other Cells Negative (Negative); RBC 0-2 HPF (0-2)
[2021-06-20] MEDS: AMPICILLIN/SULBACTAM 3 GM in Normal Saline 100 ML IVPB (14:05)
[2021-06-20 14:18] LABS: Source Nasal/Nares
[2021-06-20 15:16] LABS: COVID-19 PCR Negative (Negative)
[2021-06-20 15:35] LABS: Bilirubin, Direct 0.2 mg/dL (0.0-0.2); Bilirubin, Total 0.6 mg/dL (0.2-1.0)
[2021-06-20 15:41] LABS: PTT Activated 27.4 sec (21.0-27.5); Prothrombin Time 10.4 sec (9.3-11.0)
[2021-06-20] MEDS: DEXTROSE 5%-0.9% SALINE 1,000 ML 100 ML IV (15:51)
--- NOTE | 2021-06-20 17:40 | HPE_ITS ---
Date of service: 06/20/21 Time of Service: 17:40 Assessment and Plan Assessment and plan (1) Acute cholecystitis: Status: Acute Assessment and plan: The patient will be scheduled for laparoscopic cholecystectomy.? The alternatives to surgery, risks, complications, and the possible need to convert to open cholecystectomy were discussed. Also bleeding, infection, pneumonia, blood clots, complications of anesthesia, damage to bowel, bladder, blood vessels, or bile ducts, liver, need for blood transfusions. Also: chronic pain, chronic diarrhea, reoccurrence of signs and symptoms, port site hernias, a dhesions.? No signs of cirrhosis on his liver on CT today. He does have a longstanding history of drinking. He is allowed to beers and only that at the [facility] currently. He has a longstanding history of hyponatremia that has never been adequately diagnosed or treated. I did review the case w/ anesthesia. He is not on O2 currently and his sats are good. [facility] stated the pt lung and infection problems are chronic/stable and saw no reason that the pt required transfer. His echo in 08/21 is reassuring. I did review the notes from his transporter radiology who interrogated his pacemaker. He did not find any abnormal connections or abnormal numbers. Will consult IM for medical care pt will be in ICU postOP. 90 minutes and spent on consultation today. 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 Mera is a 70-year-old male who is a resident [facility]. For several months he has been experiencing right upper quadrant pain and diarrhea after he eats. He has been getting a lot of indigestion and heartburn. The last 2 days he has been having increasing abdominal pain and nausea. The [facility] did lab work yesterday. They received the results today and referred him into the ER. He is not running a temperature. He has pretty significant right upper quadrant pain and chronic diarrhea. He also has a history of hyponatremia which no one has ever been able to adequately diagnosis or resolve. I did attempt to refer the patient down to [facility]. [facility] stated that his heart problems were of a chronic nature as were his fluid collections in the lower lung. They are not acute. He is clinically asymptomatic from them. And they did not feel that he did not meet transfer criteria,and that we could care for him at [facility]. He has quite a long complex medical history. It is pacemaker placed in 2018for complete heart block. He had an PA 6 or 7 years ago he does have stents in his heart. He is not on any blood thinners. Echo done at [facility] 08/17/20- see [employer] I did review his CT with Dr. Chowdhury. He developed bleeding and a pericardial effusion after the pacemaker insertion. He also had a loose lead and had to have this replaced. The pericardial effusion led to an empyema that he had drained on multiple occasions. It continues to recur. The fluid collection on his right hip is actually a solid cystic lesion and not an abscess. The fluid collection seen in the paraspinal region on the left that is going into his iliac crest, is also chronic. He was on IV antibiotics for a long period of time but it did not do any good he says. He also has a TB test from the [facility] which is negative. CT: Liver is grossly unremarkable in appearance.? No biliary dilatation.? There is mildly distended thick-walled gallbladder with small pericholecystic fluid collection and associated fat edema, findings are suggestive of acute cholecystitis. Pancreas appears intact.. cardology 05/02/21 Pacemaker function today is normal, on my exam.? Though there is the mention of RA channel noise in his medical record, I see no direct evidence of this. He has no symptoms referable to pacemaker malfunction. Therefore, a conservative approach is warranted at this time. Will attempt to arrange for remote follow up--he has his transmitter at the [facility]. Will follow up in person in 3 months. I changed his RA pace config. to bipolar to see if noise ensues.? He is agreeable to thi He has a history of complete AV block s/p implantation of a [employer] dual chamber pacemaker in May 2017 complicated by pericardial effusion.? Implanted 05/02/17. On 05/21/17: had pericardial drain placed (750cc serosanguinous) and RA lead revised in setting of RA lead malfunction and pericardial effusion and tamponade. RA lead was replaced.? Sometime thereafter, he reports experiencing electric shock sensation across his chest. This arises from his left parasternal area and radiates rightward. Does not arise from the pacemaker pocket. In a note from early 2020, Dr. Tony Rosenberg also notes copious noise on the RA channel. The RA lead was otherwise working fine. He was referred for RA lead extraction by Dr. Browne.? Dr. Joey acevedo saw him and planned for RA lead extraction and pocket exploration but this was eventually cancelled due to the patient's COVID infection and his move to the [facility] this past summer.? Mr. Mera reports experiencing no electric shock sensations since he has moved to the [facility] in August 2020.? He otherwise reports feeling fine. No syncope, no palpitations, no orthopnea, PND or leg swelling. I interrogated his pacemaker today, with iterative programming performed for interrogation purposes. Please see scanned document also. RA lead: [id number] ingevity mri RV lead: [id number] ingevity mri RA: sensing 2.6 mV, pace impedance 974 ohms, pace threshold unipolar 0.4 V @ 0.4 ms, bipolar 0.6 V @ 0.4 ms RV: sensing nothing at VVI 30 ppm, pace impedance 898 ohms, pace? threshold 0.7 V @ 0.4 ms AP: 73% [employer] 100% battery life 2.5 years No recorded noise in the past one year. Repeated checks of RA lead impedance are normal. No noise could be provoked during the exam. Programming changes: turned autocapture on for both A and V leads; changed RA pace configuration from unipolar to bipolar.? Review of Systems All systems reviewed & are unremarkable except as noted in HPI and below PFSH All Active Problems Acute cholecystitis (Acute) Sacroiliitis (Acute) History of empyema of pleura (Acute) COPD (chronic obstructive pulmonary disease) (Chronic) Depression (Chronic) Lymphedema (Acute) HTN (hypertension) with goal to be determined (Acute) Obesity (Chronic) DNR (do not resuscitate) (Acute) Alcohol abuse (Chronic) Presence of cardiac pacemaker (Acute) [employer] Essentio PPM MRI model L111 Serial # [id number] placed dual chamber 04/30/2017 for CHB at [facility]. Complications included pericardial effusion with tamponade and need for reposition R atrial lead 05/16/20 Coronary artery disease (Chronic) Rhinophyma (Acute) Loculated pleural effusion (Acute) Hyponatremia, hypo-osmolarity, or hypo-osmolar hyponatremia (Acute) Vitamin D deficiency (Acute) COVID-19 (Acute) Medical History CHB (complete heart block) had permanent pacemaker implanted 2017 for this Surgical History History of permanent cardiac pacemaker placement with subsequent repositioning Social History Smoking/Tobacco Use Status: Never Smoking risk assessment performed?: Yes Alcohol Intake: current Alcohol Intake frequency: 0-2 drinks per day Alcohol type: beer Housing: assisted living facility Pets and animals: No Do you feel safe at home: Yes Do you feel safe in your relationship?: Yes Meds Allergies and Home Medications Allergies Allergy/AdvReac Type Severity Reaction Status Date / Time No Known Allergies Allergy Verified 06/20/21 11:12 Home Medications Medication Instructions Recorded Confirmed Type acetaminophen 500 mg tablet 1,000 mg PO TID tab 03/29/21 06/20/21 History (Tylenol Extra Strength) albuterol sulfate 90 mcg/actuation 2 inh INHALATION Q4H PRN 03/29/21 06/20/21 History breath activated powder inhaler calcium carbonate 215 mg calcium 430 mg PO QID tab 03/29/21 06/20/21 History (500 mg) chewable tablet (Antacid (calcium carbonate)) calcium citrate 315 mg-vitamin D3 1 tab PO DAILY 03/29/21 06/20/21 History 5 mcg (200 unit) tablet (Calcium Citrate + D) fluticasone propionate 50 1 spray INTRANASAL BID 03/29/21 06/20/21 History mcg/actuation nasal spray,suspension ibuprofen 600 mg tablet 600 mg PO BID PRN tab 03/29/21 06/20/21 History lisinopril 10 mg tablet 10 mg PO DAILY 03/29/21 06/20/21 History magnesium oxide 400 mg PO BID 03/29/21 06/20/21 History pantoprazole 40 mg tablet,delayed 40 mg PO DAILY 03/29/21 06/20/21 History release polyethylene glycol 3350 17 gram 17 g PO DAILY 03/29/21 06/20/21 History oral powder packet (Miralax) sennosides 8.6 mg-docusate sodium 1 tab-cap PO BID tab 03/29/21 06/20/21 History 50 mg tablet (Senexon-S) sertraline 25 mg tablet 25 mg PO DAILY 03/29/21 06/20/21 History vitamin B complex (Ultra B-100 1 tab PO DAILY 03/29/21 06/20/21 History Complex) fluticasone fur. 200 mcg-umeclid 1 inh INHALATION DAILY 05/02/21 06/20/21 History 62.5 mcg-vilant 25 mcg inhalat.powder (Trelegy Ellipta) metoprolol succinate 200 mg 200 mg PO DAILY 05/02/21 06/20/21 History tablet,extended release 24 hr spironolactone 25 mg tablet 25 mg PO BID 05/02/21 06/20/21 History benzonatate 200 mg capsule 200 mg PO TID PRN 05/10/21 05/10/21 History ergocalciferol (vitamin D2) 1,250 1,250 mcg PO QWEEK 05/10/21 05/10/21 History mcg (50,000 unit) capsule (Vitamin D2) melatonin 3 mg capsule 3 mg PO HS 05/10/21 06/20/21 History Exam HENGA Head: normal to inspection Ears: hearing grossly normal bilaterally General nose exam: other (large rhynophyma) Teeth and gingiva: caries and poor dentition Cardio Rate: regular rate Rhythm: regular rhythm Other: paced rthymn GI Inspection: obesity Palpation: soft and tender Other: severe RUQ pain. distention. no peritonitis. No hernias Results Labs Result diagrams: 06/20/21 11:25 06/20/21 11:25 Labs: Laboratory Results - last 24 hr 06/20/21 06/20/21 06/20/21 11:25 11:25 11:25 WBC 13.19 H RBC 3.43 L Hgb 11.3 L Hct 33.2 L MCV 96.8 H MCH 32.9 MCHC 34.0 RDW 12.4 Plt Count 271 MPV 11.2 H Immature Gran % 0.0 Neutrophils % 82.0 Band Neutrophils % 0 Lymphocytes % 4.0 Atypical Lymphs % 4 Monocytes % 10.0 Eosinophils % 0.0 Basophils % 0.0 Nucleated RBC % 0.0 Absolute Neutrophils 10.82 H Absolute Lymphocytes 1.06 L Absolute Monocytes 1.32 H Absolute Eosinophils 0.00 Absolute Basophils 0.00 RBC Morphology Normal PT INR APTT Sodium 123 L* Potassium 3.7 Chloride 88 L Carbon Dioxide 24.4 Anion Gap 10.6 BUN 39 H Creatinine 1.0 D Estimated GFR/1.73 m2 >= 60.00 Glucose 109 H Calcium 8.9 Magnesium 2.2 Total Bilirubin 0.6 0.5 Conjugated Bilirubin 0.2 AST 59 H 61 H ALT 118 H 121 H Alkaline Phosphatase 94 96 Total Protein 8.4 H 8.3 H Albumin 3.0 L 2.9 L Lipase 45 Urine Color Urine Clarity Urine pH Ur Specific Rule Urine Protein Urine Ketones Urine Blood Urine Nitrite Urine Bilirubin Urine Urobilinogen Ur Leukocyte Esterase Urine RBC Urine WBC Ur Epithelial Cells Urine Crystals Urine Bacteria Urine Casts Urine Mucus Urine Other Ur Culture Indicated? Urine Glucose Ethyl Alcohol < 3.0 COVID-19 Source SARS-CoV-2 (PCR) 06/20/21 06/20/21 06/20/21 13:11 14:00 15:15 WBC RBC Hgb Hct MCV MCH MCHC RDW Plt Count MPV Immature Gran % Neutrophils % Band Neutrophils % Lymphocytes % Atypical Lymphs % Monocytes % Eosinophils % Basophils % Nucleated RBC % Absolute Neutrophils Absolute Lymphocytes Absolute Monocytes Absolute Eosinophils Absolute Basophils RBC Morphology PT INR APTT Sodium Potassium Chloride Carbon Dioxide Anion Gap BUN Creatinine Estimated GFR/1.73 m2 Glucose Calcium Magnesium Total Bilirubin 0.6 Conjugated Bilirubin 0.2 AST ALT Alkaline Phosphatase Total Protein Albumin Lipase Urine Color Yellow Urine Clarity Clear Urine pH 6.0 Ur Specific Rule 1.010 Urine Protein Negative Urine Ketones Negative Urine Blood Trace-intact H Urine Nitrite Negative Urine Bilirubin Negative Urine Urobilinogen 0.2 Ur Leukocyte Esterase Negative Urine RBC 0-2 Urine WBC Negative Ur Epithelial Cells Rare Urine Crystals Negative Urine Bacteria Few Urine Casts Negative Urine Mucus Negative Urine Other Negative Ur Culture Indicated? No Urine Glucose Negative Ethyl Alcohol COVID-19 Source Nasal/Nares SARS-CoV-2 (PCR) Negative 06/20/21 15:15 WBC RBC Hgb Hct MCV MCH MCHC RDW Plt Count MPV Immature Gran % Neutrophils % Band Neutrophils % Lymphocytes % Atypical Lymphs % Monocytes % Eosinophils % Basophils % Nucleated RBC % Absolute Neutrophils Absolute Lymphocytes Absolute Monocytes Absolute Eosinophils Absolute Basophils RBC Morphology PT 10.4 INR 1.0 APTT 27.4 Sodium Potassium Chloride Carbon Dioxide Anion Gap BUN Creatinine Estimated GFR/1.73 m2 Glucose Calcium Magnesium Total Bilirubin Conjugated Bilirubin AST ALT Alkaline Phosphatase Total Protein Albumin Lipase Urine Color Urine Clarity Urine pH Ur Specific Rule Urine Protein Urine Ketones Urine Blood Urine Nitrite Urine Bilirubin Urine Urobilinogen Ur Leukocyte Esterase Urine RBC Urine WBC Ur Epithelial Cells Urine Crystals Urine Bacteria Urine Casts Urine Mucus Urine Other Ur Culture Indicated? Urine Glucose Ethyl Alcohol COVID-19 Source SARS-CoV-2 (PCR) Last Vital Signs Temp 36.5 C 06/20/21 10:49 Pulse 68 06/20/21 16:31 Resp 16 06/20/21 10:49 BP 99/73 L 06/20/21 16:31 Pulse Ox 91 L 06/20/21 16:30 PAWSS Have you Been Recently Intoxicated or Drunk Within the Last 30 days?: No Have you Ever Experienced Previous Episodes of Alcohol Withdrawal?: No Have you ever Experienced Withdrawal Seizures?: No Have you ever Experienced Delirium Tremens(DT)s?: No Have you ever undergone Alcohol Rehabilitation Treatment (i.e, inpt ot outpatient treatment programs)?: No Have you ever Experienced Blackouts?: No Have you ever Combined Alcohol with other Downers within the last 90 days?: No Have you ever Combined Alcohol with any other Substance of Abuse during the last 90 days?: No Positive Blood Alcohol level on Presentation? [PCS.BAL]: Unable to Obtain Evidence of Increased Autonomic Activity (i.e. HR>120, tremor, sweating, agit ation, nausea)?: No Result: 0
[2021-06-20] MEDS: Pantoprazole 40 MG VIAL IVP (20:32)
[2021-06-20] MEDS: Normal Saline Flush 10 ML SYR IVP (20:32)
[2021-06-20] MEDS: Normal Saline 1,000 ML 125 ML IV (20:32)
[2021-06-20] MEDS: PIPERACILLIN/TAZO 3.375 GM in Normal Saline 50 ML IVPB (20:32)
[2021-06-20] MEDS: Acetaminophen 500 MG TAB 1000 MG PO (20:33)
--- NOTE | 2021-06-20 21:44 | MCONE_ITS ---
Date of service: 06/20/21 Time of Service: 21:44 Assessment and Plan Assessment and plan (1) Acute cholecystitis: Status: Acute Assessment and plan: Patient is acceptable risk for cholecystectomy. The risk of developing a gangrenous gallbladder are too high to not proceed with surgery. He has no sy mptoms of unstable angina and does not have any critical valvular heart disease and has no symptoms or signs of acute congestive failure. Use multiple cardiovascular risk calculators to obtain an estimated risk in a pool of patients with a similar profile as his. Per Jesenia's risk is 0.27% of a car diovascular event. The Hernandez revised cardiac risk index is 0.9% risk of myocardial infarction or cardiac arrest or ventricular fibrillation. The Nolan combine stroke and [place] risk is 0.67% and his 30-day mortality risk index is 1.16%. To reduce his potential risk for cardiovascular complications I would keep him on his beta-marquise. While he is n.p.o. I would continue scheduled doses of IV Lopressor with parameters to hold based on low blood pressures or slow heart rates. I would attempt to partially correct his chronic hyponatremia. We do not need to achieve complete normal levels but if we could raise his serum sodium by 6 to 8 mEq prior to surgery to a level of 130 mill equivalents this w ould reduce his risk of arrhythmias or seizures. With respect to his drinking history he will need to be closely watched for alcohol withdrawal although the fact that his alcohol intake is very well controlled at the retirement makes his risk of acute withdrawal unlikely. 1 hour and 15 minutes spent interviewing and examining the patient and reviewing his chart as well as reviewing prior records and his test results and formulating a plan (2) History of empyema of pleura: Status: Acute Assessment and plan: With respect to the patient's history of pleural empyema. His CT scan was reviewed by pulmonary service at [facility] and was found to have no significant change from prior CT scans although his current CT scan was of his abdomen and pelvis and did not include his entire thorax. Nevertheless he has no symptoms referable to empyema. It sounds like this is a recurrent effusion related to his previous complications from his previous pacemaker implantation. (3) COPD (chronic obstructive pulmonary disease): Status: Chronic Assessment and plan: I would encourage pulmonary toiletry with incentive spirometry as well as use of an acapella device and I would encourage early mobilization. I recommend the use of aerosolized bronchodilators perioperatively to stimulate cough and keep his airway open. (4) HTN (hypertension) with goal to be determined: Status: Acute Assessment and plan: Continue beta-blockers perioperatively. Avoid hypotension. (5) Alcohol abuse: Status: Chronic Assessment and plan: As noted above I think it is unlikely he will go into acute alcohol withdrawal given that his alcohol intake is carefully monitored and controlled at the retirement. I would correct his hyponatremia as best as possible. Avoid raising his sodium more than 6 to 8 mEq over the next 24 hours. I have started him on low-dose of 3% normal saline bolus along with a DDAVP clamp. (6) Presence of cardiac pacemaker: Status: Acute (7) Coronary artery disease: Status: Chronic Assessment and plan: No symptoms referable to ischemic heart disease. EKG shows AV paced rhythm. Most recent echocardiogram was from last year and showed no wall motion abnormalities. I do not feel that he needs further work-up prior to surgery. (8) Hyponatremia, hypo-osmolarity, or hypo-osmolar hyponatremia: Status: Acute Assessment and plan: Gentle correction of his hyponatremia preoperatively. (9) CHB (complete heart block): Assessment and plan: Status post AV pacemaker History of Present Illness History of Present Illness Chief Complaint: Abdominal pain Narrative: Mr. Godfrey is a 70-year-old male who presents to [facility] from the [facility] in [facility] where he is a resident. He presented with symptoms of nausea and abdominal pain and decreased appetite and poor oral intake over the last 2 to 3 days. Laboratory studies ordered by his nurse practitioner showed a white count of 18,000 and elevated BUN of 39 and creatinine 1.9 as well as elevated LFTs. Based on symptoms and his labs he was referred to the emergency department for further evaluation where CT scan showed a grossly normal liver no biliary ductal dilatation but a mildly distended thick-walled gallbladder with small pericholecystic fluid collection and associated fat edema consistent with acute cholecystitis. CT of the pelvis also showed fluid collections in the right buttock as well as a fluid collection at the level of the iliac bone at and above the SI joint on the left is fluid collections possibly represent abscesses of the right left buttocks as well as questionable osteomyelitis of the left iliac bone. A portion of the chest that was obtained on the CT of the abdomen pelvis showed a left pleural fluid collection suggestive of an empyema. He also has pleural calcifications on the right for which the radiologist question prior tuberculosis. However Dr. Price's documented that the patient's had a negative TB test while at the [facility]. 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 Dr. Price attempted to have the ED transfer the patient to [facility] because of his multiple medical complications. Dr. Carver at [facility] had the gaming commissioner preparation supervisor canning review the CT findings and they concluded that there has been no change in the patients chronic pleural effusion and they saw no reason for transfer to [facility] for cholecystectomy. He has a past medical history of COPD, depression, chronic hyponatremia, hypomagnesemia, permanent pacemaker initially placed in 2018 for complete heart block complicated by postprocedural bleeding and pericardial effusion which led to an empyema requiring multiple drainage procedures. Previous myocardial infarction approximately 6 or 7 years ago for which he has coronary stents he also has hypertension osteoarthritis and alcohol abuse. While at the [facility] he has been allowed to have two 12 ounce beers per day. Patient denies any chest pain or pressure and denies any dyspnea (although the retirement had documented dyspnea w/ his abdominal pains). he has no cough or sputum production and denies any rigors. Blood culture were obtained and he was started on Unasyn. Patient is admitted for laparoscopic (potentially open) cholecystectomy. Review of Systems Constitutional Constitutional: Denies chills, Reports fever(s) and Reports poor appetite Eyes Eyes: Reports system reviewed and no additional complaints, except as documented ENT Ears, Nose, Mouth, and Throat: Reports system reviewed and no additional complaints, except as documented Cardiovascular Cardiovascular: Denies chest pain, Denies chest pain at rest, Denies lightheadedness and Denies dyspnea Respiratory Respiratory: Denies chest congestion, Denies cough, Denies excessive phlegm production and Denies dyspnea Gastrointestinal Gastrointestinal: Reports as per HPI Genitourinary Genitourinary: Reports system reviewed and no additional complaints, except as documented Musculoskeletal Musculoskeletal: Reports system reviewed and no additional complaints, except as documented Integumentary/Breasts Skin/Breast: Reports system reviewed and no additional complaints, except as documented Neurologic Neurologic: Reports system reviewed and no additional complaints, except as documented Endocrine Endocrine: Reports system reviewed and no additional complaints, except as documented Hematologic/Lymphatic Hematologic/Lymphatic: Reports system reviewed and no additional complaints, except as documented Allergic/Immunologic Allergic/Immunologic: Reports system reviewed and no additional complaints, except as documented PFSH All Active Problems (Updated 06/20/21 @ 23:45 by Reddy Kwong) Acute cholecystitis (Acute) Sacroiliitis (Acute) History of empyema of pleura (Acute) COPD (chronic obstructive pulmonary disease) (Chronic) Depression (Chronic) Lymphedema (Acute) HTN (hypertension) with goal to be determined (Acute) Obesity (Chronic) DNR (do not resuscitate) (Acute) Alcohol abuse (Chronic) Presence of cardiac pacemaker (Acute) [employer] P[employer] MRI model L111 Serial # [id number] placed dual chamber 04/30/2017 for CHB at [facility]. Complications included pericardial effusion with tamponade and need for reposition R atrial lead 05/16/20 Coronary artery disease (Chronic) Rhinophyma (Acute) Loculated pleural effusion (Acute) Hyponatremia, hypo-osmolarity, or hypo-osmolar hyponatremia (Acute) Vitamin D deficiency (Acute) Medical History CHB (complete heart block) had permanent pacemaker implanted 2017 for this Surgical History History of permanent cardiac pacemaker placement with subsequent repositioning Social History Smoking/Tobacco Use Status: Never Smoking risk assessment performed?: Yes Alcohol Intake: current Alcohol Intake frequency: 0-2 drinks per day Alcohol type: beer Housing: assisted living facility Pets and animals: No Do you feel safe at home: Yes Do you feel safe in your relationship?: Yes Exam Narrative Exam Narrative: Alert and oriented x4 HEENT: Atraumatic normocephalic, pupils equally round reactive to light and accommodation, extraocular motion intact, TMs intact, nares moist and patent without exudate or bleeding, oropharynx noninjected without exudate, teeth in good repair Neck: Supple, nontender, without thyromegaly or lymphadenopathy or JVD. Normal carotid pulses Lungs: Clear to auscultation anteriorly, decreased breath sounds at both bases Heart: Regular rate and rhythm with soft murmur over the aortic outflow. No rub or gallop. Normal apical impulse. Palpable pacemaker in left infraclavicular space Abdomen: Nondistended, normal bowel sounds, tender to palpation in the right upper quadrant, difficult to assess for organomegaly due to his right upper quadrant abdominal pain, no bruits, no palpable masses Genitalia and rectal exam: Deferred Extremities: Normal range of motion with normal strength. No peripheral cyanosis or edema. Normal pulses Neurologic: Cranial nerves II through XII grossly within normal limits. Normal strength and sensation over the face trunk and extremities. No tremors or asterixis. Results Last Vital Signs Temp 36.8 C 06/20/21 20:14 Pulse 63 06/20/21 20:14 Resp 18 06/20/21 20:14 BP 99/68 L 06/20/21 20:14 Pulse Ox 96 06/20/21 20:14 Labs Result diagrams: 06/20/21 11:25 06/20/21 11:25 Labs: Laboratory Results - last 24 hr 06/20/21 06/20/21 06/20/21 11:25 11:25 11:25 WBC 13.19 H RBC 3.43 L Hgb 11.3 L Hct 33.2 L MCV 96.8 H MCH 32.9 MCHC 34.0 RDW 12.4 Plt Count 271 MPV 11.2 H Immature Gran % 0.0 Neutrophils % 82.0 Band Neutrophils % 0 Lymphocytes % 4.0 Atypical Lymphs % 4 Monocytes % 10.0 Eosinophils % 0.0 Basophils % 0.0 Nucleated RBC % 0.0 Absolute Neutrophils 10.82 H Absolute Lymphocytes 1.06 L Absolute Monocytes 1.32 H Absolute Eosinophils 0.00 Absolute Basophils 0.00 RBC Morphology Normal PT INR APTT Sodium 123 L* Potassium 3.7 Chloride 88 L Carbon Dioxide 24.4 Anion Gap 10.6 BUN 39 H Creatinine 1.0 D Estimated GFR/1.73 m2 >= 60.00 Glucose 109 H Calcium 8.9 Magnesium 2.2 Total Bilirubin 0.6 0.5 Conjugated Bilirubin 0.2 AST 59 H 61 H ALT 118 H 121 H Alkaline Phosphatase 94 96 Total Protein 8.4 H 8.3 H Albumin 3.0 L 2.9 L Lipase 45 Urine Color Urine Clarity Urine pH Ur Specific [place] Urine Protein Urine Ketones Urine Blood Urine Nitrite Urine Bilirubin Urine Urobilinogen Ur Leukocyte Esterase Urine RBC Urine WBC Ur Epithelial Cells Urine Crystals Urine Bacteria Urine Casts Urine Mucus Urine Other Ur Culture Indicated? Urine Glucose Ethyl Alcohol < 3.0 COVID-19 Source SARS-CoV-2 (PCR) 06/20/21 06/20/21 06/20/21 13:11 14:00 15:15 WBC RBC Hgb Hct MCV MCH MCHC RDW Plt Count MPV Immature Gran % Neutrophils % Band Neutrophils % Lymphocytes % Atypical Lymphs % Monocytes % Eosinophils % Basophils % Nucleated RBC % Absolute Neutrophils Absolute Lymphocytes Absolute Monocytes Absolute Eosinophils Absolute Basophils RBC Morphology PT INR APTT Sodium Potassium Chloride Carbon Dioxide Anion Gap BUN Creatinine Estimated GFR/1.73 m2 Glucose Calcium Magnesium Total Bilirubin 0.6 Conjugated Bilirubin 0.2 AST ALT Alkaline Phosphatase Total Protein Albumin Lipase Urine Color Yellow Urine Clarity Clear Urine pH 6.0 Ur Specific [place] 1.010 Urine Protein Negative Urine Ketones Negative Urine Blood Trace-intact H Urine Nitrite Negative Urine Bilirubin Negative Urine Urobilinogen 0.2 Ur Leukocyte Esterase Negative Urine RBC 0-2 Urine WBC Negative Ur Epithelial Cells Rare Urine Crystals Negative Urine Bacteria Few Urine Casts Negative Urine Mucus Negative Urine Other Negative Ur Culture Indicated? No Urine Glucose Negative Ethyl Alcohol COVID-19 Source Nasal/Nares SARS-CoV-2 (PCR) Negative 06/20/21 15:15 WBC RBC Hgb Hct MCV MCH MCHC RDW Plt Count MPV Immature Gran % Neutrophils % Band Neutrophils % Lymphocytes % Atypical Lymphs % Monocytes % Eosinophils % Basophils % Nucleated RBC % Absolute Neutrophils Absolute Lymphocytes Absolute Monocytes Absolute Eosinophils Absolute Basophils RBC Morphology PT 10.4 INR 1.0 APTT 27.4 Sodium Potassium Chloride Carbon Dioxide Anion Gap BUN Creatinine Estimated GFR/1.73 m2 Glucose Calcium Magnesium Total Bilirubin Conjugated Bilirubin AST ALT Alkaline Phosphatase Total Protein Albumin Lipase Urine Color Urine Clarity Urine pH Ur Specific [place] Urine Protein Urine Ketones Urine Blood Urine Nitrite Urine Bilirubin Urine Urobilinogen Ur Leukocyte Esterase Urine RBC Urine WBC Ur Epithelial Cells Urine Crystals Urine Bacteria Urine Casts Urine Mucus Urine Other Ur Culture Indicated? Urine Glucose Ethyl Alcohol COVID-19 Source SARS-CoV-2 (PCR) Imaging Abdomen CT scan report/results: report reviewed ( Appearance of the gallbladder is suggestive of acute cholecystitis, no biliary dilatation seen. Left pleural effusion versus empyema, please see above discussion. Question prior tuberculosis with marked pleural calcification on the right. Multiple soft tissue fluid collections, possible abscess) EKG: image reviewed (AV paced) Imaging Studies: Echocardiogram dated August 17, 2020 from [facility] demonstrated normal left ventricular ejection fraction of 55 to 60% with impaired diastolic filling and mild concentric LVH. Mild aortic stenosis with a peak gradient of 22 mm mean gradient 13 mm. Mild mitral regurgitation. This was read by Dr. Vick Santiago from [facility] affiliated with [facility].
[2021-06-20] MEDS: SODIUM CHLORIDE 3% 250 ML 60 ML IV (22:01)
--- NOTE | 2021-06-20 22:20 | NUR.NOTE ---
Nursing Note: Desmopressin given per MAR and Hypertonic 3% Saline infusing per Order. Telemetry and Continuous Spo2 applied per order. Seizure precautions in place. Pads placed to bilateral upper bed rails. Pt refuses to have 4 bed rails up. He would like 3 rails up only. Pt Alert, oriented. PERRLA, and able to move all extremities without any issues. Plan- Bmp recheck at 0100. Frequent VS and Neuro checks. IV site patent with good blood return.
[2021-06-21] VITALS (95 sets, daily range): BP systolic 95–164; BP diastolic 29–122; PULSE 57–94; RESP 15–31; TEMP 35.9–37.2; O2SAT 90–100; BMI 28.7
--- NOTE | 2021-06-21 | DI.US_ITS ---
Exam(s) US ABDOMEN LIMITED EXAM: US ABDOMEN LIMITED CLINICAL HISTORY: RUQ US TECHNIQUE: Ultrasound abdomen performed using standard protocol. COMPARISON: No exams were available for comparison FINDINGS: Exam limited to the biliary tree, as per request. There is no ascites evident. GALLBLADDER/BILIARY: There are no shadowing gallstones obvious sludge in the gallbladder lumen. Gall bladder wall does appear somewhat uniformly thickened, exhibiting 8 millimeters thickness. The common hepatic duct isdilated, measuring 10-11mm at the level of jony hepatis. PANCREAS: Poorly visualized due to overlying bowel gas. IMPRESSION: 1. Although there are no shadowing gallstones in the gallbladder lumen, gallbladder wall is uniforml y thickened. In addition, the common hepatic duct dilated, measuring 10-11 millimeters. Cannot excl ude presence of a possible calculus CBD. 2. Pancreas not adequately seen. 3. There is no ascites. Recommend follow-up CT scan. DATA REPOSITORY:
[2021-06-21 01:17] LABS: Anion Gap 6.8 mmol/L (3-11); BUN 31 mg/dL (7-18); CO2 25.2 mmol/L (21.0-32.0); CREATININE 0.9 mg/dL (0.70-1.30); Calcium 8.3 mg/dL (8.5-10.1); Chloride 97 mmol/L (98-107); Glucose 104 mg/dL (74-106); Potassium 3.5 mmol/L (3.5-5.1); Sodium 129 mmol/L (136-145)
[2021-06-21] MEDS: Normal Saline Flush 10 ML SYR IVP ×6 (01:52→18:21)
[2021-06-21] MEDS: Acetaminophen 500 MG TAB 1000 MG PO (01:52)
[2021-06-21] MEDS: PIPERACILLIN/TAZO 3.375 GM in Normal Saline 50 ML IVPB ×4 (02:15→20:30)
[2021-06-21] MEDS: DEXTROSE 5%-WATER 1,000 ML 50 ML IV (03:24)
[2021-06-21 06:37] LABS: Abs Immature Grans 0.14 10^3/uL (0.0-0.06); Absolute Basophil Count 0.05 10^3/uL (0.0-0.2); Absolute Eosinophil Count 0.14 10^3/uL (0.0-0.7); Absolute Lymphocyte Count 1.53 10^3/uL (1.2-3.4); Absolute Monocyte Count 1.58 10^3/uL (0.1-0.8); Absolute Neutrophil Count 7.25 10^3/uL (1.2-6.7); Basophils % 0.5; Eosinophils % 1.3; HCT 28.7 % (40.0-50.0); HGB 9.8 g/dL (13.5-17.5); Immature Grans % 1.3; Lymphocytes % 14.3; MCH 33.3 pg (27.0-33.0); MCHC 34.1 % (32.0-36.0); MCV 97.6 fL (80-95); MPV 10.8 fL (8.0-11.0); Monocytes % 14.8; Neutrophils % 67.8; Platelet Count 255 10^3/uL (130-400); RBC 2.94 10^6/uL (4.36-5.78); RDW 12.6 % (11.8-14.1); RDW-SD 45.3 fL; WBC 10.69 10^3/uL (4.4-10.8)
[2021-06-21 06:54] LABS: Prothrombin Time 10.2 sec (9.3-11.0)
[2021-06-21 07:00] LABS: Diff Comment Diff Reviewed; RBC Morphology Normal
[2021-06-21 07:04] LABS: C-Reactive Protein 11.61 mg/dL (0.0-0.3); Lipase 37 U/L (73-393); Magnesium 2.1 mg/dL (1.8-2.4)
[2021-06-21 07:14] LABS: ALT 87 U/L (16-63); AST 43 U/L (15-37); Albumin 2.4 g/dL (3.4-5.0); Alkaline Phosphatase 94 U/L (46-116); Anion Gap 6.4 mmol/L (3-11); BUN 29 mg/dL (7-18); Bilirubin, Total 0.3 mg/dL (0.2-1.0); CO2 23.6 mmol/L (21.0-32.0); CREATININE 0.7 mg/dL (0.70-1.30); Calcium 8.3 mg/dL (8.5-10.1); Chloride 99 mmol/L (98-107); Glucose 114 mg/dL (74-106); NT-proBNP 621 pg/mL (<300); Potassium 3.6 mmol/L (3.5-5.1); Sodium 129 mmol/L (136-145)
--- NOTE | 2021-06-21 08:47 | DI.RAD_ITS ---
Exam(s) XR CHEST 2V PA LATERAL EXAM: XR CHEST 2V PA LATERAL CLINICAL HISTORY: pre op. TECHNIQUE: 2D digital imaging was performed. COMPARISON: CT CT ABDOMEN PELVIS W from 06/20/2021 FINDINGS: 2 views: Bipolar left subclavian pacemaker noted with lead tips in RA and RV. Heart size. Mediastinum not widened. Heavily calcified pleural plaque along the right hemithorax si de wall is noted. There is some pleural thickening the left side wall inferior aspect also noted, th is noncalcified but shown to exhibit a loculated pleural effusion on the uppermost images the recent CT scan the abdomen. Is also some infiltrate in the posterior basal segment of the left lower lobe l ocated behind the left side of the heart. Scarring throughout the right lung noted. No pneumothorax. No pulmonary edema. No mediastinal widening No acute fractures evident. IMPRESSION: Heavily calcified pleural plaque on the right side. Left lower lobe infiltrate and loculated left pl eural effusion. If clinically indicated CT scan the chest can be performed for added specificity. DATA REPOSITORY: RADIATION DOSE DELIVERED:
[2021-06-21] MEDS: Metoprolol 5 MG/5 ML VIAL IVP ×3 (09:33→22:11)
--- NOTE | 2021-06-21 10:00 | RT.EKG_ITS ---
APPROVED REPORT Exam: Resting ECG Reason for Exam: pre-operative Patient Location: I HR:60 bpm ECG Measurements Heart Rate 60 AXIS CA 118 P [id number] QRSd 173 QRS -31 QT 491 T 115 QTc 491 Conclusion Atrial-paced rhythm Left bundle branch block...QRSd>120, broad/notched R
--- NOTE | 2021-06-21 10:03 | W.ANESPRE ---
General Info Date of Service Date Performed: 06/21/21 Height: 6 ft Weight: 96 kg Body Mass Index (BMI): 28.7 Surgical Procedure: Operation Date: 06/21/21 10:40 Proposed Procedure Side Surgeon p Cholecystectomy Laparoscopic Poss. Open Jayne Carrillo DO Meds Allergies and Home Medications Allergies Allergy/AdvReac Type Severity Reaction Status Date / Time No Known Allergies Allergy Verified 06/20/21 11:12 Home Medication Medication Instructions Recorded acetaminophen 500 mg tablet 1,000 mg PO TID tab 03/29/21 (Tylenol Extra Strength) albuterol sulfate 90 mcg/actuation 2 inh INHALATION Q4H PRN 03/29/21 breath activated powder inhaler calcium carbonate 215 mg calcium 430 mg PO QID tab 03/29/21 (500 mg) chewable tablet (Antacid (calcium carbonate)) calcium citrate 315 mg-vitamin D3 1 tab PO DAILY 03/29/21 5 mcg (200 unit) tablet (Calcium Citrate + D) fluticasone propionate 50 1 spray INTRANASAL BID 03/29/21 mcg/actuation nasal spray,suspension ibuprofen 600 mg tablet 600 mg PO BID PRN tab 03/29/21 lisinopril 10 mg tablet 10 mg PO DAILY 03/29/21 magnesium oxide 400 mg PO BID 03/29/21 pantoprazole 40 mg tablet,delayed 40 mg PO DAILY 03/29/21 release polyethylene glycol 3350 17 gram 17 g PO DAILY 03/29/21 oral powder packet (Miralax) sennosides 8.6 mg-docusate sodium 1 tab-cap PO BID tab 03/29/21 50 mg tablet (Senexon-S) sertraline 25 mg tablet 25 mg PO DAILY 03/29/21 vitamin B complex (Ultra B-100 1 tab PO DAILY 03/29/21 Complex) fluticasone fur. 200 mcg-umeclid 1 inh INHALATION DAILY 05/02/21 62.5 mcg-vilant 25 mcg inhalat.powder (Trelegy Ellipta) metoprolol succinate 200 mg 200 mg PO DAILY 05/02/21 tablet,extended release 24 hr spironolactone 25 mg tablet 25 mg PO BID 05/02/21 benzonatate 200 mg capsule 200 mg PO TID PRN 05/10/21 ergocalciferol (vitamin D2) 1,250 1,250 mcg PO QWEEK 05/10/21 mcg (50,000 unit) capsule (Vitamin D2) melatonin 3 mg capsule 3 mg PO HS 05/10/21 Current Visit Medications: Current Medications Generic Name Dose Route Start Last Admin Trade Name Freq PRN Reason Stop Dose Admin Acetaminophen 1,000 mg 06/20/21 18:00 06/21/21 06:09 Acetaminophen 500 Mg Tab PO Not Given Q6H ROGELIO Albuterol Sulfate 2 puff 06/20/21 19:36 Albuterol Hfa 8 Gm 60 Puff Inh IH Q4H PRN PRN Sodium Chloride 500 mls @ 0 mls/hr 06/20/21 17:19 Saline 500ml Bag IV PRN PRN As Directed Piperacillin Sod/Tazobactam 50 mls @ 100 mls/hr 06/20/21 20:00 06/21/21 09:48 Sod 3.375 gm/ Sodium Chloride IVPB 100 mls/hr Q6H ROGELIO Administration Protocol Dextrose/Water 1,000 mls @ 50 mls/hr 06/21/21 02:00 06/21/21 08:16 IV 0 mls/hr INFUSION ROGELIO Infusion Sodium Chloride 500 mls @ 80 mls/hr 06/21/21 08:00 Half Normal Saline IV 06/21/21 14:14 INFUSION ROGELIO IV Miscellaneous Supplies 1 each 06/20/21 17:30 Iv Access IV DIRECTED ROGELIO Metoprolol Tartrate 5 mg 06/20/21 22:00 06/21/21 09:33 Metoprolol 5 Mg/5 Ml Vial IVP 5 mg Q6H ROGELIO Administration Morphine Sulfate 2 mg 06/20/21 17:19 Morphine 2 Mg/Ml Syr IVP Q1H PRN PRN Ondansetron HCl 4 mg 06/20/21 17:19 Ondansetron 4 Mg/2 Ml Vial IVP Q4H PRN PRN Pantoprazole Sodium 40 mg 06/20/21 20:00 06/20/21 20:32 Pantoprazole 40 Mg Vial IVP 40 mg Q24H ROGELIO Administration Patient's Own 1 each 06/21/21 08:30 Medication ( IH Fluticasone- DAILY ROGELIO Umeclidin-Vilanter [ Trelegy Ellipta] 200 ) Sertraline HCl 25 mg 06/21/21 08:30 Sertraline 25 Mg Tab PO DAILY ROGELIO Sodium Chloride 0 ml 06/20/21 17:19 06/21/21 01:52 Normal Saline Flush 10 Ml Syr IVP 10 ml PRN PRN Administration PFSH Active Problems Active Problems: Problem Status Onset Code Acute cholecystitis K81.0 Sacroiliitis M46.1 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 COPD (chronic obstructive pulmonary disease) J44.9 Depression F32.A Lymphedema I89.0 HTN (hypertension) with goal to be determined I10 Obesity E66.9 DNR (do not resuscitate) Z66 Alcohol abuse F10.10 Presence of cardiac pacemaker Z95.0 Coronary artery disease I25.10 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 Loculated pleural effusion J90 Hyponatremia, hypo-osmolarity, or hypo-osmolar hyponatremia E87.1 Vitamin D deficiency E55.9 Medical History Medical History CHB (complete heart block) had permanent pacemaker implanted 2018 for this Surgical History Surgical History History of permanent cardiac pacemaker placement with subsequent repositioning Tobacco Smoking/Tobacco Use Status: Never Alcohol Alcohol Intake: current Alcohol intake frequency: 0-2 drinks per day Alcohol type: beer Vital Signs and Lab Results Vital Signs Most Recent Vital Signs in EMR: Most Recent Vital Signs Temp Pulse Resp BP Pulse Ox 36.5 C 61 17 125/81 99 06/21/21 09:57 06/21/21 09:57 06/21/21 09:57 06/21/21 09:57 06/21/21 09:57 Lab Results Result Diagrams: 06/21/21 05:55 06/21/21 05:55 Blood Type / Crossmatch: Patient ABO/Rh O Positive 06/21/21 Antibody Screen NEGATIVE 06/21/21 Complete Blood Count: White Blood Count 10.69 10^3/uL (4.4-10.8) 06/21/21 05:55 06/21/21 Red Blood Count 2.94 10^6/uL (4.36-5.78) L 06/21/21 05:55 06/21/21 Hemoglobin 9.8 g/dL (13.5-17.5) L 06/21/21 05:55 06/21/21 Hematocrit 28.7 % (40.0-50.0) L 06/21/21 05:55 06/21/21 Platelet Count 255 10^3/uL (130-400) 06/21/21 05:55 06/21/21 Complete Metabolic Panel: Sodium Level 129 mmol/L (136-145) L 06/21/21 05:55 06/21/21 Potassium Level 3.6 mmol/L (3.5-5.1) 06/21/21 05:55 06/21/21 Chloride Level 99 mmol/L (98-107) 06/21/21 05:55 06/21/21 Carbon Dioxide Level 23.6 mmol/L (21.0-32.0) 06/21/21 05:55 06/21/21 Blood Urea Nitrogen 29 mg/dL (7-18) H 06/21/21 05:55 06/21/21 Creatinine 0.7 mg/dL (0.70-1.30) 06/21/21 05:55 06/21/21 Estimated GFR/1.73 m2 >= 60.00 (mL/min/1.73m2) 06/21/21 05:55 06/21/21 Magnesium Level 2.1 mg/dL (1.8-2.4) 06/21/21 05:55 06/21/21 Calcium Level 8.3 mg/dL (8.5-10.1) L 06/21/21 05:55 06/21/21 Albumin 2.4 g/dL (3.4-5.0) L 06/21/21 05:55 06/21/21 Glucose Level 114 mg/dL (74-106) H 06/21/21 05:55 06/21/21 C-Reactive Protein 11.61 mg/dL (0.0-0.3) H 06/21/21 05:55 06/21/21 Liver Function Panel: Alanine Aminotransferase (ALT/SGPT) 87 U/L (16-63) H 06/21/21 05:55 06/21/21 Aspartate Amino Transf (AST/SGOT) 43 U/L (15-37) H 06/21/21 05:55 06/21/21 Coagulation Panel: INR International Normalized Ratio 1.0 (0.9-1.1) 06/21/21 05:55 06/21/21 Prothrombin Time 10.2 sec (9.3-11.0) 06/21/21 05:55 06/21/21 Activated Partial Thromboplast Time 27.4 sec (21.0-27.5) 06/20/21 15:15 06/20/21 Cardiac Panel: YP-Nfl-R-Type Natriuretic Peptide 621 pg/mL (<300) H 06/21/21 Arterial Blood Gas: No Data to Display Venous Blood Gas: No Data to Display Pancreas Panel: Lipase 37 U/L (73-393) 06/21/21 05:55 06/21/21 Thyroid Panel: No Data to Display Infectious Disease: Coronavirus (COVID-19)(PCR) Negative (Negative) 06/20/21 14:00 06/20/21 Coronavirus 2019 Source Nasal/Nares 06/20/21 14:00 06/20/21 Blood Cultures: No Data to Display Toxicology Panel: Ethyl Alcohol Level < 3.0 mg/dL (<10) 06/20/21 11:25 06/20/21 Imaging and Studies Imaging and Studies Study information below may be from another EMR and interpreted by another provider. Please see original notes in EMR for more complete details. EKG Summary: ECG Measurements Heart Rate 60 AXIS MN 118 P [id number] QRSd 160 QRS -32 QT 495 T100 QTc 495 Conclusion A-V dual-paced rhythm with some inhibition...atrial and/or vent inhibition No further analysis attempted due to paced rhythm Echocardiogram Summary: 08/17/2020: (External, [facility] records): Normal left ventricular ejection fraction of 55 to 60% with impaired diastolic filling and mild concentric LVH. Mild aortic stenosis with peak/mean gradients of 22/12 mmHg respectively. Mild mitral regurgitation. Anesthesia Assessment and Plan Anesthesia History Personal History: No History of Anesthesia Complications Family History: No Family History of Anesthesia Complications Exercise Tolerance Exercise Tolerance: Metabolic Equivalents<4 Pertinent Negatives Pertinent Negatives: No Symptoms of GERD, No History of CVA/TIA and Other (Pacer dependent, collapsed lung) Cardiac & Pulmonary Exam Cardiac Exam: Normal S1/S2 Heart Sounds and Other Pulmonary Exam: Clear Bilateral Breath Sounds and Other (Very dimnished, minimal reserve) Cardiac and Pulmonary Comment:: I interrogated his pacemaker today, with iterative programming performed for interrogation purposes. Please see scanned document also. RA lead: [id number] ingevity mri RV lead: [id number] ingevity mri RA: sensing 2.6 mV, pace impedance 974 ohms, pace threshold unipolar 0.4 V @ 0.4 ms, bipolar 0.6 V @ 0.4 ms RV: sensing nothing at VVI 30 ppm, pace impedance 898 ohms, pace threshold 0.7 V @ 0.4 ms AP: 73% [employer] 100% battery life 2.5 years No recorded noise in the past one year. Repeated checks of RA lead impedance are normal. No noise could be provoked during the exam. Programming changes: turned autocapture on for both A and V leads; changed RA pace configuration from unipolar to bipolar. 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:: [employer] Reason for Placement:: Complete Heart Block Date of Last Device Interrogation:: 05/02/21: Airway Exam Known Difficult Airway: No Mallampati Class: 3 Mouth Opening: Narrow (< 3cm) Thyromental Distance: Greater than 3 cm Facial Hair: Full Mcrae Neck Range of Motion: Full ROM Neck Circumference: Thick Teeth Condition: Generalized Poor Dentition, Loose or Chipped and Dental Caries ASA Classification ASA Score: ASA 4 Emergency Case?: No NPO Status NPO Status: NPO Clears >2 hours, Solids >8 hours Anesthesia Plan Resuscitation Status: DNR Fully Suspended During Perioperative Period Anesthesia Technique: General Anesthesia Airway Planned: Endotracheal Tube Monitors Used: Standard Monitors, Arterial Line and SedLine
[2021-06-21] MEDS: ELECTROLYTE-R SOLUTION 1,000 ML 75 ML IV (11:05)
[2021-06-21] MEDS: Bupivacaine 0.25% Pres-Free 30 ML VIAL (11:42)
--- NOTE | 2021-06-21 11:58 | GB_PTH ---
PATIENT: Tim Mera LOC: U#:[id number] AGE/SX: 70/M ROOM: [facility] RE06/20/[address]: Virginia Price : 1950 BED: A DIS: 06/28/2021 SPEC #: [id number] RECD: 06/21/21 12:52 STATUS: BENJAMIN REQ #: [id number] ALEX: 06/21/21 11:[address]: Virginia Price DEPT: Surgical Specimen RECD BY: Leyla Wadsworth ENTERED: 06/21/21 12:53 SP TYPE: GB OTHR DR: Unknown,Unknown Tissues: 1 - GALLBLADDER Procedures: GROSS AND MICRO LEVEL 3 Comments: [id number]
--- NOTE | 2021-06-21 11:58 | PDOC.CMIN ---
- If Service Date Differs Date of service: 06/21/21 Time of Service: 11:58 Care Management Initial Assess REASON FOR HOSPITALIZATION:: Acute cholecystitis. PAST MEDICAL HISTORY/PAST SURGICAL HISTORY:: All Active Problems: Acute cholecystitis (Acute), Sacroiliitis (Acute),. History of empyema of pleura (Acute), COPD (chronic obstructive pulmonary disease) (Chronic), Depression (Chronic), Lymphedema (Acute),. HTN (hypertension) with goal to be determined (Acute), Obesity (Chronic),. DNR (do not resuscitate) (Acute), Alcohol abuse (Chronic), Presence of cardiac pacemaker (Acute) - [employer] PPM MRI model L111 Serial # [id number] placed dual chamber 04/30/2017 for CHB at [facility]. Complications included pericardial effusion with tamponade and need for reposition R atrial lead 05/16/20, Coronary artery disease (Chronic),. Rhinophyma (Acute), Loculated pleural effusion (Acute), Hyponatremia, hypo-osmolarity, or hypo-osmolar hyponatremia (Acute), Vitamin D deficiency (Acute), and COVID-19 (Acute). Medical History: CHB (complete heart block) - had permanent pacemaker implanted 2017 for this. Surgical History: History of permanent cardiac pacemaker placement. with subsequent repositioning. PREVIOUS FUNCTIONAL STATUS/SOCIAL/FAMILY SUPPORTS:: Tim resides in assisted living at the [facility] in [place]. Prior to going to the [facility] he lived with his son who is now . Tim has a daughter, Adriana, who visits him regularly and is supportive of him. Staff at the [facility] report that Tim uses a wheelchair for ambulation and is independent with transfers. CURRENT FUNCTIONAL STATUS:: Tim had a laparoscopic cholecystectomy today. Per MD note, the surgery went well. CM is unable to meet with Tim as he is sedated and sleeping. CM will continue to follow. ADVANCE DIRECTIVES:: COLST/DNR on file. Has patient been provided with info about the portal/API?: No Did the patient sign up for the portal?: No CODE STATUS:: DNR/DNI INSURANCE COVERAGE / FINANCIAL ISSUES:: Medicare and Medicaid. CURRENT HOME/COMMUNITY SERVICES/EQUIPMENT:: Tim has the support of Palliative Care and of the staff at the [facility] where he resides. He owns a wheelchair. POTENTIAL DISCHARGE NEEDS:: Follow up appointment with surgeon. PATIENT/FAMILY EDUCATION NEEDS:: Review of discharge instructions, limitations, medications, and follow up plan of care; discuss Ask Me Three. ANTICIPATED BARRIERS TO DISCHARGE:: No anticipated barriers currently. TRANSPORTATION:: EMS vs. RCT wheelchair van. PLAN:: Tim will return to the [facility] when medically cleared by provider. He will follow up with [facility], Palliative Care, and his discharge plan of care as instructed. CM will continue to follow.
[2021-06-21] MEDS: Cellulose,Oxidized 4X8 1 PACKET MC (12:02)
--- NOTE | 2021-06-21 12:12 | W.ANESVAS ---
Arterial Line Placement Date Performed: 06/21/21 Procedure Time: 10:45 Procedure Location: PACU Requesting Provider: Virginia Price Timeout Performed: Yes Sedation Given (Indicate Dose Given): No Sedation given Patient Mental Status: Awake Sterility: Hand Hygiene, Surgical Cap, Surgical Mask, Sterile Gloves, Eye Protection and Chlorhexidine Laterality: Left Insertion Site: Radial Arterial Line Catheter: 20G Arrow Arterial Line Procedure: 1% Lidocaine to skin and subcutaneous tissue with 25g needle, Vessel accessed with catheter over needle, Guidewire placed with ease and Guidewire removed Dressing: Tegaderm Applied Ultrasound: Sterile probe cover and gel used Ultrasound Image Saved?: No Number of Attempts (See previous attempts in note section): 1 Procedure Tolerated: No Complications and Patient tolerated well Procedure Outcome: Successful Performed By: Omayra Tom Supervised By: Angela Carpio
[2021-06-21] MEDS: Cellulose,Oxidized 2X3 PKT 1 EACH MC (13:02)
--- NOTE | 2021-06-21 13:13 | ROE_ITS ---
Date of service: 06/21/21 Time of Service: 13:13 Operative Note Operative Note DATE OF PROCEDURE: 06/21/21 PRE-OP DIAGNOSIS: acute bonnie POST-OP DIAGNOSIS: other (suppurative bonnie) PROCEDURE: lap bonnie SURGEON: Kelin Ospina DIRECTIONAL DRILLER: Beatrice Levi DIRECTIONAL DRILLER: Humberto Pedro ANESTHESIA TYPE: Local By Surgeon and General LMA/ETT Refer to Anesthesia Record ESTIMATED BLOOD LOSS: 200 PATHOLOGY: other (bile was purulent and sent for culture) COMPLICATIONS: None Patient was transported to: ICU Patient's condition: stable Procedure Description: COMPLICATIONS: The patient tolerated the procedure without complication. INDICATIONS: Mr. Mera is a 70-year-old male who resides at the [facility]. He has had several weeks history of abdominal pain and nausea, diarrhea and inability to eat. He came into the ER on 06/20 finding of severe pain and was found to have acute cholecystitis and is here today for laparoscopic cholecystectomy. Informed consent was obtained, explaining risks and benefits of the procedure including but not limited to bleeding, infection, pneumonia, blood clots, possible damage to bowel, bladder, blood vessels, bile ducts, possible open procedure, complications of general anesthesia and other unforetold complications. He is a DNR. This will be rescinded he is in the OR. We did discuss with him if his heart were to stop would he want ACLS protocol. The patient said no. We did place a Webber catheter preoperatively. It was difficult to pass the catheter. This was assumed to be due to enlarged prostate. He did have to use a coud? catheter. There was some slight amount of bleeding from catheter trauma. He also has a new phimosis of his foreskin and there was some mild bleeding when it was retracted. PROCEDURE: The patient agrees and is brought to the operative room suite and placed in supine position. Anesthesia was administered per the Department of Anesthesia. The patient did receive IV antibiotics. NG tube and Webber catheter are placed. The patient was prepped and draped in the usual sterile fashion using DuraPrep scrub solution. Pause for the cause was done. 20 mL of 1% buffered lidocaine was used for local anesthetization. A stab incision was made in the umbilicus and the Verres inserted. Drop test was positive and insufflation was begun. When 15 mm of pressure was noted on the monitor, the Veress was removed and #5 port inserted. The camera was inserted through the port and shows no damage to underlying structures. A 10 mm port was then placed in the epigastric position under direct visualization following creation of local field blocks as well as two 5 mm ports in the right upper quadrant. The omentum is adhered up to the gallbladder. This is taken down with blunt dissection. The gallbladder is erythematous and distended. A needle was used to aspirate bile. There was white bile and purulent secretions within the gallbladder. This was sent for culture. The gallbladder fundus was grasped and retracted towards the right shoulder. Infundibulum was grasped and retracted laterally. The hepat-duodenal ligament is entered. The hepatoduodenal ligament is quite inflamed. However it is soft and easily comes apart. the cystic duct was dissected out dissected out and the most inferior portion of the gallbladder plate is removed from the liver and the critical view of safety was obtained after clearing away all fatty material. Endo Clips were placed across the duct and artery and these structures are divided. The cystic artery was then identified and clipped and divided. The remainder of the gallbladder was excised from the liver bed. This actually came off very easily with minimal bleeding.is There was some bleeding from the the dissection site in the duodenal ligament and the omentum. The gallbladder fossa is packed with Gelfoam and Floseal. Cautery is used on the omentum. the GB Placed in a bag and brought out. I did have to enlarge the epigastric port site to remove the gallbladder. Examination of the gallbladder shows indeed the cystic duct and artery to have been divided. The remainder of the abdomen was copiously irrigated with a 2700cc of saline. There is no bleeding or bile leakage from the liver bed or the clips sites. There is no bleeding at the time of closure. The gallbladder bed and the clip sites are carefully evaluated to make sure there is no bleeding. A 50 mm round LEYDA is passed down through one of the 5 mm port sites and placed in the gallbladder fossa. All ports and instruments are removed. SPonge and needle counts are correct. Pneumoperitoneum is evacuated and the port sites are monitored to make sure there is no bleeding at the time of desufflation. Fascia under the site of the epigastric port site is closed with 0 Vicryl. The skin is approximated with 3-0 nylon. Port sites are irrigated and the skin is closed with 4-0 Monocryl in a running subcuticular fashion. Skin glue sterile dressings are applied. The patient tolerated the procedure well without complications, transferred to the recovery room in stable condition. KELIN OSPINA, DO ?
[2021-06-21] MEDS: MORPHine 2 MG/ML SYR IVP ×3 (13:53→20:31)
[2021-06-21] MEDS: Ondansetron 4 MG/2 ML VIAL IVP (14:01)
--- NOTE | 2021-06-21 14:37 | W.ANESPOSTOP ---
Postoperative Evaluation Date, Time and Location Date Performed: 06/21/21 Time Performed: 14:37 Patient Location: Intensive Care Unit Vital Signs Most Recent Imported Vital Signs: Most Recent Vital Signs Temp Pulse Resp BP Pulse Ox 35.9 C L 68 21 114/74 100 06/21/21 13:15 06/21/21 13:15 06/21/21 13:15 06/21/21 13:15 06/21/21 13:15 Pain Score Most Recent Pain Score: Most Recent Pain Score Pain Level 10 06/21/21 13:53 Assessment Mental Status: Awake (Alert & Oriented to Patient Baseline) Airway and Respiratory Function: Patent airway with normal (patient baseline) respiratory exam Cardiovascular Function: Hemodynamically Stable Hydration Status: Adequately Hydrated Nausea & Vomiting: No Nausea or Vomiting Pain: Pain is Moderate or Severe Postoperative Pain Management: Ongoing pain, patient will be managed as an inpatient Peripheral Nerve Block: Patient did not receive a nerve block
--- NOTE | 2021-06-21 16:15 | PGE_ITS ---
Date of Service Date of service: 06/21/21 Time of Service: 16:15 Assessment and Plan Assessment and plan (1) Acute cholecystitis: Status: Acute Assessment and plan: S/p lap cholecystectomy today with EBL of 200 cc. Monitor post-operatively in the ICU. IVF. Defer diet to general surgery (2) Hyponatremia, hypo-osmolarity, or hypo-osmolar hyponatremia: Status: Acute Assessment and plan: Improved post 3% saline/DDAVP lock. Continue to monitor serial sodiums - repeat pending. Currently, on D5NS. (3) History of empyema of pleura: Status: Chronic Assessment and plan: Chronic - reviewed by [facility] pulmonology - not felt to require intervention. (4) COPD (chronic obstructive pulmonary disease): Status: Chronic Assessment and plan: At baseline, not in acute exacerbation. Encourage pulmonary toilet (5) HTN (hypertension) with goal to be determined: Status: Acute Assessment and plan: On IV lorpessor in the immediate post-operative period. Will monitor. (6) Alcohol abuse: Status: Chronic Assessment and plan: No evidence of EtOH withdrawal so far. Will write for IV thiamine. (7) Presence of cardiac pacemaker: Status: Chronic Assessment and plan: Functioning well. F/u as outpatient. (8) Coronary artery disease: Status: Chronic Assessment and plan: No evidence of ACS at this time. (9) CHB (complete heart block): Assessment and plan: Status post AV pacemaker. Functioning well. (10) DVT prophylaxis: Status: Acute Assessment and plan: SC enoxaparin (11) Discharge planning issues: Status: Acute Assessment and plan: DNR/DNI. In ICU post-operatively. Subjective Subjective Interval history since last seen: Mr Mera reports nausea and RUQ pain. Denies dizziness, chest pain, shortness of breath. He is s/p cholecystectomy today. EBL 200 cc. He is recovering in the ICU postoperatively. He has an Warren with MAPs in the 100s. Exam Narrative Exam Narrative: General: Pleasant elderly male who is resting, easily arousable to voice, A&Ox3, uncomfortable HEENT: EOMI, MMM, rhinophyma (nonerythematous) Heart: RRR, no m/r/g Lungs: Diminished breath sounds (auscultated anteriorly) Abdomen: RUQ incision dressed - c/d/i; LEYDA drain with serosanguenous fluid. Extremities: no edema BLEs Objective Last Vital Signs Temp 36.3 C L 06/21/21 14:23 Pulse 76 06/21/21 14:23 Resp 19 06/21/21 14:23 BP 121/63 06/21/21 14:23 Pulse Ox 90 L 06/21/21 14:23 Laboratory Results - last 24 hr 06/21/21 06/21/21 06/21/21 01:05 05:55 05:55 WBC 10.69 RBC 2.94 L Hgb 9.8 L Hct 28.7 L MCV 97.6 H MCH 33.3 H MCHC 34.1 RDW 12.6 Plt Count 255 MPV 10.8 Immature Gran % 1.3 Neutrophils % 67.8 Lymphocytes % 14.3 Monocytes % 14.8 Eosinophils % 1.3 Basophils % 0.5 Nucleated RBC % 0.0 Absolute Neutrophils 7.25 H Absolute Lymphocytes 1.53 Absolute Monocytes 1.58 H Absolute Eosinophils 0.14 Absolute Basophils 0.05 RBC Morphology Normal PT INR Sodium 129 L Potassium 3.5 Chloride 97 L Carbon Dioxide 25.2 Anion Gap 6.8 BUN 31 H Creatinine 0.9 Estimated GFR/1.73 m2 >= 60.00 Glucose 104 Calcium 8.3 L Magnesium 2.1 Total Bilirubin AST ALT Alkaline Phosphatase C-Reactive Protein 11.61 H NT-Pro-B Natriuret Pep Total Protein Albumin Lipase 37 Patient ABO/Rh Antibody Screen 06/21/21 06/21/21 06/21/21 05:55 05:55 05:55 WBC RBC Hgb Hct MCV MCH MCHC RDW Plt Count MPV Immature Gran % Neutrophils % Lymphocytes % Monocytes % Eosinophils % Basophils % Nucleated RBC % Absolute Neutrophils Absolute Lymphocytes Absolute Monocytes Absolute Eosinophils Absolute Basophils RBC Morphology PT 10.2 INR 1.0 Sodium 129 L Potassium 3.6 Chloride 99 Carbon Dioxide 23.6 Anion Gap 6.4 BUN 29 H Creatinine 0.7 Estimated GFR/1.73 m2 >= 60.00 Glucose 114 H Calcium 8.3 L Magnesium Total Bilirubin 0.3 AST 43 H ALT 87 H Alkaline Phosphatase 94 C-Reactive Protein NT-Pro-B Natriuret Pep 621 H Total Protein 7.0 Albumin 2.4 L Lipase Patient ABO/Rh O Positive Antibody Screen NEGATIVE PAWSS Have you Been Recently Intoxicated or Drunk Within the Last 30 days?: No Have you Ever Experienced Previous Episodes of Alcohol Withdrawal?: No Have you ever Experienced Withdrawal Seizures?: No Have you ever Experienced Delirium Tremens(DT)s?: No Have you ever undergone Alcohol Rehabilitation Treatment (i.e, inpt ot outpatient treatment programs)?: No Have you ever Experienced Blackouts?: No Have you ever Combined Alcohol with other Downers within the last 90 days?: No Have you ever Combined Alcohol with any other Substance of Abuse during the last 90 days?: No Positive Blood Alcohol level on Presentation? [PCS.BAL]: Unable to Obtain Evidence of Increased Autonomic Activity (i.e. HR>120, tremor, sweating, agitation, nausea)?: No Result: 0 Multi-Disciplinary Checklist Lines/Tubes CENTRAL LINE: no ARTERIAL LINE: yes, FRANKLIN: yes, ENDOTRACHEAL TUBE: no ICU Maintenance GLUCOSE 140-180mg/dL: yes NUTRITION AT GOAL: no, Reason/Intervention: post-op PRESSURE ULCER: no RESTRAINTS: no ANTIBIOTICS(if yes, consider Stewardship): Yes Social Issues FAMILY UPDATED: no, PT/OT: yes GOALS/DISPOSITION/WOOD HEEL FINISHER: yes CODE STATUS: DNR/DNI Prophylaxis DVT PROPHYLAXIS: yes GI PROPHYLAXIS: yes,
[2021-06-21] MEDS: Prochlorperazine 10 MG/2 ML VIAL IVP (16:19)
[2021-06-21] MEDS: ACETAMINOPHEN 1,000 MG/100 ML BTL 400 MG IVPB ×2 (16:24→23:36)
[2021-06-21] MEDS: DEXTROSE 5%-0.9% SALINE 1,000 ML 150 ML IV (16:26)
[2021-06-21] MEDS: THIAMINE 100 MG in Normal Saline 100 ML 200 MG IVPB (17:04)
[2021-06-21 17:29] LABS: Anion Gap 7.9 mmol/L (3-11); BUN 21 mg/dL (7-18); CO2 25.1 mmol/L (21.0-32.0); CREATININE 0.7 mg/dL (0.70-1.30); Calcium 8.7 mg/dL (8.5-10.1); Chloride 99 mmol/L (98-107); Glucose 133 mg/dL (74-106); Potassium 3.8 mmol/L (3.5-5.1); Sodium 132 mmol/L (136-145)
[2021-06-21] MEDS: DEXTROSE 5%-0.45% SALINE 1,000 ML 150 ML IV (18:11)
[2021-06-21] MEDS: Pantoprazole 40 MG VIAL IVP (20:31)
--- NOTE | 2021-06-21 21:26 | W.PM.PROGNOT ---
Date of Service Date of service: 06/21/21 Time of Service: 13:00 Assessment and Plan Assessment and plan (1) Acute cholecystitis: Status: Acute Assessment and plan: The patient is doing well post-op. Their pain is well controlled. They are having no nausea or vomiting. The pt is not having any chest pain or SOB, productive cough; no calf pain or swelling. The pt is making good urine. The pt pain is adequately controlled. The case was discussed with nursing and patient?s progress reviewed. All of the pt's home medications were addressed and adjusted accordingly for their oral intact status. HEENT: no jaundice. no eye pain/drainage/redness/swelling. Mild sore throat Cardio- NSR no chest pain, BP - has been running high. Pulm: no sob or productive cough. no hemoptysis Incision- clean/dry. Dressing intact no excessive bleeding or drainage Is going to be on large output of fluid from the LEYDA drain. I did not get all the irrigation fluid off. What is coming out right now is bright max in color. It is not clotting. It is just residual irrigation fluid and should take about 48 hours to resolve. We reviewed expectations for progress in the hospital; what the pt could expect for recovery time and length of stay. We discussed the importance of walking and pulmonary toilet to avoid blood clots and pneumonia. Continue current plans for pulmonary toilet, GI and DVT prophylaxis. We shall continue the current plan for pain management as it is at an appropriate level, and working well for the pt. Appropriate measures will be taken for constipation prevention, and this was also reviewed with the pt. The wound care plan was reviewed with nursing as well. see orders ? (2) Sacroiliitis: Status: Acute (3) COPD (chronic obstructive pulmonary disease): Status: Chronic (4) Lymphedema: Status: Acute (5) HTN (hypertension) with goal to be determined: Status: Acute (6) Obesity: Status: Chronic (7) Presence of cardiac pacemaker: Status: Chronic (8) Coronary artery disease: Status: Chronic (9) Rhinophyma: Status: Acute (10) Loculated pleural effusion: Status: Deleted (11) Vitamin D deficiency: Status: Acute (12) CHB (complete heart block): Objective Last Vital Signs Temp 37.2 C 06/21/21 16:25 Pulse 86 06/21/21 17:15 Resp 16 04/21/22 17:15 BP 144/71 H 06/21/21 20:43 Pulse Ox 97 06/21/21 17:15 Laboratory Results - last 24 hr 06/21/21 06/21/21 06/21/21 01:05 05:55 05:55 WBC 10.69 RBC 2.94 L Hgb 9.8 L Hct 28.7 L MCV 97.6 H MCH 33.3 H MCHC 34.1 RDW 12.6 Plt Count 255 MPV 10.8 Immature Gran % 1.3 Neutrophils % 67.8 Lymphocytes % 14.3 Monocytes % 14.8 Eosinophils % 1.3 Basophils % 0.5 Nucleated RBC % 0.0 Absolute Neutrophils 7.25 H Absolute Lymphocytes 1.53 Absolute Monocytes 1.58 H Absolute Eosinophils 0.14 Absolute Basophils 0.05 RBC Morphology Normal PT INR Sodium 129 L Potassium 3.5 Chloride 97 L Carbon Dioxide 25.2 Anion Gap 6.8 BUN 31 H Creatinine 0.9 Estimated GFR/1.73 m2 >= 60.00 Glucose 104 Calcium 8.3 L Magnesium 2.1 Total Bilirubin AST ALT Alkaline Phosphatase C-Reactive Protein 11.61 H NT-Pro-B Natriuret Pep Total Protein Albumin Lipase 37 Patient ABO/Rh Antibody Screen 06/21/21 06/21/21 06/21/21 05:55 05:55 05:55 WBC RBC Hgb Hct MCV MCH MCHC RDW Plt Count MPV Immature Gran % Neutrophils % Lymphocytes % Monocytes % Eosinophils % Basophils % Nucleated RBC % Absolute Neutrophils Absolute Lymphocytes Absolute Monocytes Absolute Eosinophils Absolute Basophils RBC Morphology PT 10.2 INR 1.0 Sodium 129 L Potassium 3.6 Chloride 99 Carbon Dioxide 23.6 Anion Gap 6.4 BUN 29 H Creatinine 0.7 Estimated GFR/1.73 m2 >= 60.00 Glucose 114 H Calcium 8.3 L Magnesium Total Bilirubin 0.3 AST 43 H ALT 87 H Alkaline Phosphatase 94 C-Reactive Protein NT-Pro-B Natriuret Pep 621 H Total Protein 7.0 Albumin 2.4 L Lipase Patient ABO/Rh O Positive Antibody Screen NEGATIVE 06/21/21 16:30 WBC RBC Hgb Hct MCV MCH MCHC RDW Plt Count MPV Immature Gran % Neutrophils % Lymphocytes % Monocytes % Eosinophils % Basophils % Nucleated RBC % Absolute Neutrophils Absolute Lymphocytes Absolute Monocytes Absolute Eosinophils Absolute Basophils RBC Morphology PT INR Sodium 132 L Potassium 3.8 Chloride 99 Carbon Dioxide 25.1 Anion Gap 7.9 BUN 21 H D Creatinine 0.7 Estimated GFR/1.73 m2 >= 60.00 Glucose 133 H Calcium 8.7 Magnesium Total Bilirubin AST ALT Alkaline Phosphatase C-Reactive Protein NT-Pro-B Natriuret Pep Total Protein Albumin Lipase Patient ABO/Rh Antibody Screen PAWSS Have you Been Recently Intoxicated or Drunk Within the Last 30 days?: No Have you Ever Experienced Previous Episodes of Alcohol Withdrawal?: No Have you ever Experienced Withdrawal Seizures?: No Have you ever Experienced Delirium Tremens(DT)s?: No Have you ever undergone Alcohol Rehabilitation Treatment (i.e, inpt ot outpatient treatment programs)?: No Have you ever Experienced Blackouts?: No Have you ever Combined Alcohol with other Downers within the last 90 days?: No Have you ever Combined Alcohol with any other Substance of Abuse during the last 90 days?: No Positive Blood Alcohol level on Presentation? [PCS.BAL]: Unable to Obtain Evidence of Increased Autonomic Activity (i.e. HR>120, tremor, sweating, agitation, nausea)?: No Result: 0
[2021-06-22] VITALS (63 sets, daily range): BP systolic 85–148; BP diastolic 49–69; PULSE 59–82; RESP 12–28; TEMP 36.2–36.8; O2SAT 89–98
[2021-06-22] MEDS: DEXTROSE 5%-0.45% SALINE 1,000 ML 150 ML IV (01:18)
[2021-06-22] MEDS: PIPERACILLIN/TAZO 3.375 GM in Normal Saline 50 ML IVPB ×4 (01:20→21:16)
[2021-06-22] MEDS: Metoprolol 5 MG/5 ML VIAL IVP ×3 (04:05→16:04)
[2021-06-22] MEDS: MORPHine 2 MG/ML SYR IVP ×4 (04:06→16:03)
[2021-06-22 06:19] LABS: Abs Immature Grans 0.08 10^3/uL (0.0-0.06); Absolute Basophil Count 0.02 10^3/uL (0.0-0.2); Absolute Lymphocyte Count 1.04 10^3/uL (1.2-3.4); Absolute Monocyte Count 1.65 10^3/uL (0.1-0.8); Basophils % 0.1; HCT 28.8 % (40.0-50.0); HGB 9.7 g/dL (13.5-17.5); Immature Grans % 0.5; Lymphocytes % 6.9; MCH 32.9 pg (27.0-33.0); MCHC 33.7 % (32.0-36.0); MCV 97.6 fL (80-95); MPV 10.9 fL (8.0-11.0); Neutrophils % 81.5; Platelet Count 259 10^3/uL (130-400); RBC 2.95 10^6/uL (4.36-5.78); RDW 12.7 % (11.8-14.1); RDW-SD 45.3 fL; WBC 15.01 10^3/uL (4.4-10.8)
[2021-06-22 06:39] LABS: Absolute Neutrophil Count 12.23 10^3/uL (1.2-6.7)
[2021-06-22 06:46] LABS: ALT 124 U/L (16-63); AST 71 U/L (15-37); Albumin 2.3 g/dL (3.4-5.0); Alkaline Phosphatase 88 U/L (46-116); Anion Gap 4.9 mmol/L (3-11); BUN 11 mg/dL (7-18); Bilirubin, Direct 0.2 mg/dL (0.0-0.2); Bilirubin, Total 0.5 mg/dL (0.2-1.0); CO2 26.1 mmol/L (21.0-32.0); CREATININE 0.6 mg/dL (0.70-1.30); Chloride 100 mmol/L (98-107); Glucose 147 mg/dL (74-106); Lipase 13 U/L (73-393); Magnesium 1.9 mg/dL (1.8-2.4); Potassium 3.5 mmol/L (3.5-5.1); Sodium 131 mmol/L (136-145); Total Protein 6.8 g/dL (6.4-8.2)
[2021-06-22 06:48] LABS: Diff Comment Diff Reviewed; RBC Morphology Normal
[2021-06-22] MEDS: Budesonide/Formoterol 80/4.5 6.9 GM 60 PUFF INH IH ×2 (07:59→21:16)
[2021-06-22] MEDS: Normal Saline Flush 10 ML SYR IVP ×4 (08:03→21:17)
[2021-06-22] MEDS: Enoxaparin 30 MG/0.3 ML SYR SC (10:05)
[2021-06-22] MEDS: Sertraline 25 MG TAB PO (10:06)
[2021-06-22] MEDS: Tamsulosin 0.4 MG CAPCR PO (10:06)
[2021-06-22] MEDS: Protein Nutritional Supplement 16 GM 1 OUNCE PACKET PO ×3 (10:06→21:16)
[2021-06-22] MEDS: ACETAMINOPHEN 1,000 MG/100 ML BTL 400 MG IVPB ×3 (10:11→17:16)
[2021-06-22] MEDS: Polyethylene Glycol 3350 17 GM PACKET PO ×2 (10:12→10:46)
--- NOTE | 2021-06-22 10:14 | CMPROGNOTE_ITS ---
- If Service Date Differs Date of service: 06/22/21 Time of Service: 10:15 Care Management Progress Note S/O:Tim was sitting up in bed when CM met with him. He was agreeable to conversation and talked with CM for quite some time. Tim discussed his time at [facility]. He shared that he has been there since August and really enjoys it because the care is good. He has an elderly roommate Jay that he talked about and seems fond of. Jay calls out a lot at night which keeps Tim awake. Tim stated he understands though because Jay has dementia. Tim continues to complain about abdominal pain. He receives morphine for pain and it seems to have good effect as he sleeps after he receives it. A PT evaluation has been ordered for tomorrow. He has been refusing to sit on the side of the bed or to get up so far today secondary to the pain. A:Tim is a 70 year old man admitted with cholecystitis on 06/20/21 P:Tim will return to the [facility] when medically cleared by provider. He will follow up with [facility], Palliative Care, and his discharge plan of care as instructed. CM will continue to follow.
--- NOTE | 2021-06-22 12:39 | W.PM.PROGNOT ---
Date of Service Date of service: 06/22/21 Time of Service: 08:30 Assessment and Plan Assessment and plan (1) Acute cholecystitis: Status: Acute Assessment and plan: S/p lap cholecystectomy 06/21/21 with EBL of 200 cc. Doing well in the ICU. Defer level of care to the surgeons, but from medical stand point, he can be downgraded to medical surgical floor. Defer diet to surgery. (2) Hyponatremia, hypo-osmolarity, or hypo-osmolar hyponatremia: Status: Acute Assessment and plan: Improved post 3% saline/DDAVP lock. Stable. Continue NS, add potassium supplementation, d/c fluid restriction. (3) History of empyema of pleura: Status: Chronic Assessment and plan: Chronic - reviewed by [facility] pulmonology - not felt to require intervention. (4) COPD (chronic obstructive pulmonary disease): Status: Chronic Assessment and plan: At baseline, not in acute exacerbation. Encourage pulmonary toilet (5) HTN (hypertension) with goal to be determined: Status: Acute Assessment and plan: On IV lorpessor in the immediate post-operative period. Will monitor. (6) Alcohol abuse: Status: Chronic Assessment and plan: No evidence of EtOH withdrawal so far. Continue thiamine. (7) Presence of cardiac pacemaker: Status: Chronic Assessment and plan: Functioning well. F/u as outpatient. (8) Coronary artery disease: Status: Chronic Assessment and plan: No evidence of ACS at this time. (9) CHB (complete heart block): Assessment and plan: Status post AV pacemaker. Functioning well. (10) DVT prophylaxis: Status: Acute Assessment and plan: SC enoxaparin (11) Discharge planning issues: Status: Acute Assessment and plan: DNR/DNI. In ICU post-operatively - disposition per primary team (general surgery) Subjective Subjective Interval history since last seen: Mr Mera reports RUQ pain. Denies dizziness, chest pain, does state he feels like he cannot take a deep breath. Denies n/v. [place] in. Hedrick removal today. LEYDA drain with a lot less output. On RA. no arrhythmias on tele. In 1st degree AV block when not paced. Exam Narrative Exam Narrative: General: Pleasant elderly male who is awake, irritable, A&Ox3, appears more comfortable HEENT: EOMI, MMM, rhinophyma (nonerythematous) Heart: RRR, no m/r/g Lungs: Diminished breath sounds (auscultated anteriorly) Abdomen: RUQ incision dressed - c/d/i; LEYDA drain with serosanguenous fluid. Extremities: no edema BLEs, still had a LUE arterial line at the time of the exam Objective Last Vital Signs Temp 36.5 C 06/22/21 04:00 Pulse 76 06/22/21 10:12 Resp 18 06/22/21 09:30 BP 148/68 H 06/22/21 10:12 Pulse Ox 92 06/22/21 09:30 Laboratory Results - last 24 hr 06/21/21 06/22/21 06/22/21 16:30 05:25 05:25 WBC 15.01 H D RBC 2.95 L Hgb 9.7 L Hct 28.8 L MCV 97.6 H MCH 32.9 MCHC 33.7 RDW 12.7 Plt Count 259 MPV 10.9 Immature Gran % 0.5 Neutrophils % 81.5 Lymphocytes % 6.9 Monocytes % 11.0 Eosinophils % 0.0 Basophils % 0.1 Nucleated RBC % 0.0 Absolute Neutrophils 12.23 H Absolute Lymphocytes 1.04 L Absolute Monocytes 1.65 H Absolute Eosinophils 0.00 Absolute Basophils 0.02 RBC Morphology Normal Sodium 132 L 131 L Potassium 3.8 3.5 Chloride 99 100 Carbon Dioxide 25.1 26.1 Anion Gap 7.9 4.9 BUN 21 H D 11 D Creatinine 0.7 0.6 L Estimated GFR/1.73 m2 >= 60.00 >= 60.00 Glucose 133 H 147 H Calcium 8.7 8.0 L Magnesium 1.9 Total Bilirubin 0.5 Conjugated Bilirubin 0.2 AST 71 H ALT 124 H Alkaline Phosphatase 88 Total Protein 6.8 Albumin 2.3 L Lipase 13 PAWSS Have you Been Recently Intoxicated or Drunk Within the Last 30 days?: No Have you Ever Experienced Previous Episodes of Alcohol Withdrawal?: No Have you ever Experienced Withdrawal Seizures?: No Have you ever Experienced Delirium Tremens(DT)s?: No Have you ever undergone Alcohol Rehabilitation Treatment (i.e, inpt ot outpatient treatment programs)?: No Have you ever Experienced Blackouts?: No Have you ever Combined Alcohol with other Downers within the last 90 days?: No Have you ever Combined Alcohol with any other Substance of Abuse during the last 90 days?: No Positive Blood Alcohol level on Presentation? [PCS.BAL]: Unable to Obtain Evidence of Increased Autonomic Activity (i.e. HR>120, tremor, sweating, agitation, nausea)?: No Result: 0 Multi-Disciplinary Checklist Lines/Tubes CENTRAL LINE: no ARTERIAL LINE: yes, FRANKLIN: yes, ENDOTRACHEAL TUBE: no ICU Maintenance GLUCOSE 140-180mg/dL: yes NUTRITION AT GOAL: yes PRESSURE ULCER: no RESTRAINTS: no ANTIBIOTICS(if yes, consider Stewardship): Yes Social Issues FAMILY UPDATED: no, Reason/Intervention: Patient is alert and oriented; primary surgical patient PT/OT: yes GOALS/DISPOSITION/CINNAMON GRINDER: yes CODE STATUS: DNR/DNI Prophylaxis DVT PROPHYLAXIS: yes GI PROPHYLAXIS: yes,
[2021-06-22] MEDS: IRON SUCROSE COMPLEX 200 MG in Normal Saline 100 ML 400 MG IVPB (12:49)
--- NOTE | 2021-06-22 13:44 | NS.NUTBLAN_ITS ---
Date of service: 06/22/21 Time of Service: 13:44 Nutritional Consult ASSESSMENT: 70 year old male admitted and s/p nathalia nicole (06/21/21) after 2-3 days of poor po intake. PMH: obesity, COPD, CAD. Lives at the [facility]. Tolerating clear liquid diet, to be advanced at dinner to diabetic/regular meal plan. Diet supplemented with ensure clear TID to provide additional nutrients for optimal healing. Estimated needs: 3520-1519 kcal, 80-100 g protein, 45-55 g fat NUTRITIONAL DIAGNOSIS: class 1 obesity as evidenced by BMI of 30 INTERVENTION: Diet as ordered, supplement with ensure clear TID MONITORING AND EVALUATION: weight, labs, po intake. Time Spent in Nutritional Counseling and Treatment: 0
--- NOTE | 2021-06-22 15:46 | W.PM.PROGNOT ---
Date of Service Date of service: 06/22/21 Time of Service: 11:46 Assessment and Plan Assessment and plan (1) Acute cholecystitis: Status: Acute Assessment and plan: S/p laparoscopic cholecystectomy 06/21/21 -Perioperative bile cx growing E.coli -Increased leukcytosis likely secondary to stress of surgery +/- transient bacteremia; continue IV Zosyn -Slight increase in LFT's likely post-op reaction; will monitor, expect to normalize -Monitor drain output, ~900cc over the last 24h -Encourage patient to use incentive spirometer and get out of bed with assistance to the chair -Encouraged to eat slowly, explained how body has to adjust to no longer having bile reservoir to aid in digestion of fats -Requesting diet be changed so that he can use salt (not provided with any salt on heart healthy diet) -Downgrade out of ICU (2) Hyponatremia, hypo-osmolarity, or hypo-osmolar hyponatremia: Status: Acute Assessment and plan: -Check urine electrolytes -Question beer potomania vs SIADH (3) History of empyema of pleura: Status: Chronic Assessment and plan: -Appears to still be present, images reviewed by [facility] pulmonology who felt this did not need to be addressed. This finding is certainly abnormal if it truly represents the presence of an empyema vs chronic/stable effusion. -Would advise pleural fluid to be sent for culture/chemistry to ensure no empyema is present -Will remain vigilant in regard to this to prevent possible development of bacteremia and subsequent seeding of pacemaker which could then require removal. -Consider consultation with Dr. Squires while inpatient. (4) COPD (chronic obstructive pulmonary disease): Status: Chronic (5) HTN (hypertension) with goal to be determined: Status: Acute (6) Alcohol abuse: Status: Chronic Assessment and plan: -Currently has no symptoms of withdrawal -Dietary request to provide 12oz beer with dinner tray if possible (7) Presence of cardiac pacemaker: Status: Chronic Assessment and plan: -Secondary to complete heart block (8) Coronary artery disease: Status: Chronic (9) DVT prophylaxis: Status: Acute Assessment and plan: -Continue subcutaneous Lovenox (10) Discharge planning issues: Status: Acute Assessment and plan: -Will likely return to [facility] living where he currently resides (11) Sacroiliitis: Status: Acute Assessment and plan: -Consider MRI to rule out presence of osteomyelitis -Apparently was previously attempted to be treated but patient reports lack of any improvement (12) DNR (do not resuscitate): Status: Acute (13) Obesity: Status: Chronic (14) Vitamin D deficiency: Status: Acute (15) History of permanent cardiac pacemaker placement: (16) CHB (complete heart block): Subjective Subjective Patient reports: still having pain, tolerating a regular diet, no flatus, no bowel movement and afebrile; denies nausea or vomiting Exam Const General: cooperative and other (uncomfortable due to pain) Nutritional Appearance: overweight [facility] General nose exam: other (large rhinophyma ) Teeth and gingiva: poor dentition Eyes General: appearance normal, both eyes and all related structures Resp Effort & Inspection: normal respiratory effort, able to speak in complete sentences, not labored, no respiratory distress and tachypneic Cardio Rate: regular rate Rhythm: regular rhythm GI Inspection: incision (intact with skin glue), obesity and other (drain RUQ serosanguineous) Palpation: soft, guarding and tender in the RUQ and at McBurney's point Skin General skin exam: no rashes or lesions noted Objective Last Vital Signs Temp 97.2 F L 06/22/21 09:00 Pulse 76 06/22/21 13:12 Resp 27 H 06/22/21 14:00 BP 100/60 06/22/21 13:12 Pulse Ox 93 06/22/21 14:00 Laboratory Results - last 24 hr 06/21/21 06/22/21 06/22/21 16:30 05:25 05:25 WBC 15.01 H D RBC 2.95 L Hgb 9.7 L Hct 28.8 L MCV 97.6 H MCH 32.9 MCHC 33.7 RDW 12.7 Plt Count 259 MPV 10.9 Immature Gran % 0.5 Neutrophils % 81.5 Lymphocytes % 6.9 Monocytes % 11.0 Eosinophils % 0.0 Basophils % 0.1 Nucleated RBC % 0.0 Absolute Neutrophils 12.23 H Absolute Lymphocytes 1.04 L Absolute Monocytes 1.65 H Absolute Eosinophils 0.00 Absolute Basophils 0.02 RBC Morphology Normal Sodium 132 L 131 L Potassium 3.8 3.5 Chloride 99 100 Carbon Dioxide 25.1 26.1 Anion Gap 7.9 4.9 BUN 21 H D 11 D Creatinine 0.7 0.6 L Estimated GFR/1.73 m2 >= 60.00 >= 60.00 Glucose 133 H 147 H Calcium 8.7 8.0 L Magnesium 1.9 Total Bilirubin 0.5 Conjugated Bilirubin 0.2 AST 71 H ALT 124 H Alkaline Phosphatase 88 Total Protein 6.8 Albumin 2.3 L Lipase 13 PAWSS Have you Been Recently Intoxicated or Drunk Within the Last 30 days?: No Have you Ever Experienced Previous Episodes of Alcohol Withdrawal?: No Have you ever Experienced Withdrawal Seizures?: No Have you ever Experienced Delirium Tremens(DT)s?: No Have you ever undergone Alcohol Rehabilitation Treatment (i.e, inpt ot outpatient treatment programs)?: No Have you ever Experienced Blackouts?: No Have you ever Combined Alcohol with other Downers within the last 90 days?: No Have you ever Combined Alcohol with any other Substance of Abuse during the last 90 days?: No Positive Blood Alcohol level on Presentation? [PCS.BAL]: Unable to Obtain Evidence of Increased Autonomic Activity (i.e. HR>120, tremor, sweating, agitation, nausea)?: No Result: 0
[2021-06-22] MEDS: Tiotropium Bromide-Respimat 10 PUFF INH 2 PUFF IH (16:05)
[2021-06-22] MEDS: THIAMINE 100 MG in Normal Saline 100 ML 200 MG IVPB (17:46)
[2021-06-22] MEDS: Pantoprazole 40 MG VIAL IVP (21:16)
[2021-06-22] MEDS: Normal Saline 500 ML 30 ML IV (21:16)
[2021-06-23] VITALS (13 sets, daily range): BP systolic 93–131; BP diastolic 57–83; PULSE 72–95; RESP 14–26; TEMP 36.4–36.9; O2SAT 93–96
[2021-06-23] MEDS: ACETAMINOPHEN 1,000 MG/100 ML BTL 400 MG IVPB ×3 (01:44→18:09)
[2021-06-23] MEDS: PIPERACILLIN/TAZO 3.375 GM in Normal Saline 50 ML IVPB ×4 (01:44→20:28)
[2021-06-23] MEDS: Metoprolol 5 MG/5 ML VIAL IVP (04:15)
[2021-06-23] MEDS: MORPHine 2 MG/ML SYR IVP ×2 (04:15→22:59)
[2021-06-23 04:53] LABS: Sodium, Urine 24 mmol/L
[2021-06-23 06:16] LABS: Absolute Basophil Count 0.04 10^3/uL (0.0-0.2); Absolute Eosinophil Count 0.08 10^3/uL (0.0-0.7); Absolute Lymphocyte Count 2.07 10^3/uL (1.2-3.4); Absolute Monocyte Count 1.63 10^3/uL (0.1-0.8); Basophils % 0.3; Eosinophils % 0.6; HCT 26.9 % (40.0-50.0); Immature Grans % 1.4; Lymphocytes % 14.9; MCH 33.1 pg (27.0-33.0); MCHC 33.5 % (32.0-36.0); MCV 98.9 fL (80-95); Monocytes % 11.7; Neutrophils % 71.1; Platelet Count 257 10^3/uL (130-400); RBC 2.72 10^6/uL (4.36-5.78); RDW-SD 46.6 fL; WBC 13.92 10^3/uL (4.4-10.8)
[2021-06-23 06:22] LABS: ALT 82 U/L (16-63); AST 30 U/L (15-37); Albumin 2.2 g/dL (3.4-5.0); Alkaline Phosphatase 75 U/L (46-116); Bilirubin, Direct 0.1 mg/dL (0.0-0.2); Bilirubin, Total 0.4 mg/dL (0.2-1.0); Total Protein 6.8 g/dL (6.4-8.2)
[2021-06-23 06:28] LABS: Anion Gap 4.6 mmol/L (3-11); BUN 18 mg/dL (7-18); CO2 27.4 mmol/L (21.0-32.0); CREATININE 0.7 mg/dL (0.70-1.30); Calcium 8.2 mg/dL (8.5-10.1); Chloride 99 mmol/L (98-107); Glucose 102 mg/dL (74-106); Lipase 47 U/L (73-393); Magnesium 1.7 mg/dL (1.8-2.4); Potassium 3.4 mmol/L (3.5-5.1); Sodium 131 mmol/L (136-145); TSH (W/Ref FT4) 1.38 uIU/mL (0.36-3.74)
[2021-06-23 06:54] LABS: Diff Comment Diff Reviewed; RBC Morphology Normal
[2021-06-23] MEDS: Normal Saline 500 ML 30 ML IV (07:47)
[2021-06-23] MEDS: MAGNESIUM SULFATE 2 GM/50 ML BAG IVPB (07:54)
[2021-06-23] MEDS: Normal Saline Flush 10 ML SYR IVP ×2 (07:54→20:31)
[2021-06-23] MEDS: Protein Nutritional Supplement 16 GM 1 OUNCE PACKET PO ×3 (07:54→20:29)
[2021-06-23] MEDS: Polyethylene Glycol 3350 17 GM PACKET PO (07:54)
[2021-06-23] MEDS: Sertraline 25 MG TAB PO (07:55)
[2021-06-23] MEDS: Enoxaparin 30 MG/0.3 ML SYR SC (07:55)
[2021-06-23] MEDS: Potassium Chloride 20 MEQ TABCR 40 MEQ PO (07:55)
[2021-06-23] MEDS: Tamsulosin 0.4 MG CAPCR PO (07:55)
[2021-06-23] MEDS: Budesonide/Formoterol 80/4.5 6.9 GM 60 PUFF INH IH ×2 (08:18→20:29)
[2021-06-23] MEDS: Tiotropium Bromide-Respimat 10 PUFF INH 2 PUFF IH (08:19)
--- NOTE | 2021-06-23 09:53 | PT.INIE ---
Date of service: 06/23/21 Time of Service: 09:20 PT Notes Visit Reasons: Acute Cholecystitis Inpatient Physical Therapy Evaluation Date: June 23, 2021 Referring Doctor: Virginia Price PT Orders: PT CONSULT: Precautions: Standard, Falls Patient Profile/Admitting Diagnosis: Tim is a 70 year old male who is a resident [facility]. For several months he has been experiencing right upper quadrant pain and diarrhea after he eats. Referred for PT consult s/p diagnosis with acute cholecystitis. PMHX: Acute cholecystitis (Acute) Sacroiliitis (Acute) History of empyema of pleura (Acute) COPD (chronic obstructive pulmonary disease) (Chronic) Depression (Chronic) Lymphedema (Acute) HTN (hypertension) with goal to be determined (Acute) Obesity (Chronic) DNR (do not resuscitate) (Acute) Alcohol abuse (Chronic) Presence of cardiac pacemaker (Acute) [facility] PPM MRI model L111 Serial # [id number] placed dual chamber 04/30/2017 for CHB at [facility]. Complications included pericardial effusion with tamponade and need for reposition R atrial lead 05/16/20 Coronary artery disease (Chronic) Rhinophyma (Acute) Loculated pleural effusion (Acute) Hyponatremia, hypo-osmolarity, or hypo-osmolar hyponatremia (Acute) Vitamin D deficiency (Acute) COVID-19 (Acute) Medical History CHB (complete heart block) had permanent pacemaker implanted 2017 for this Surgical History History of permanent cardiac pacemaker placement with subsequent repositioning Social History/Home Situation: Tim is a resident of the [facility]. Has been staying there since this past summer. Notes that he utilizes a wheelchair to get around. Able to stand pivot transfer. Current Functional Limitations: Limited ability with transfers, bed mobility, and continued gas pains. Equipment Owned/DME: wheelchair Subjective: Tim notes that he is experiencing a lot of gas pains in his belly. Objective: General Observation: telemetry, catheter, IV right UE, Mental Status: Alert and oriented x3. ROM: Right Upper Extremity: R shoulder flexion limited to 90 degrees, ER 25 degrees. Demonstrates WFL elbow, wrist and hand mobility Left Upper Extremity: L shoulder flexion limited to 120 degrees, ER 35 degrees. Demonstrates WFL elbow,wrist and hand mobility Right Lower Extremity: hip flexion 90 degrees, knee flexion 100 degrees, lacking 25 degrees of TKE, DF neutral Left Lower Extremity: hip flexion 90 degrees, knee flexion 100 degrees, lacking 30 degrees of TKE, DF neutral Strength: Right Upper Extremity: shoulder flexion 3/5, abduction 3/5, elbow flexion 4/5, elbow extension 4/5, good functional grasp Left Upper Extremity: shoulder flexion 3+/5, abduction 3+/5, elbow flexion 4/5, elbow extension 4/5, good functional grasp Right Lower Extremity: hip flexion 3+/5, knee extension 4-/5, knee flexion 4-/5, DF 3+/5 Left Lower Extremity: hip flexion 3+/5, knee extension 4/5, knee flexion 4/5, DF 4-/5 Sensation: Intact to light touch. Bed Mobility/Transfers: Commode-chair: CGA with use of FWW Sit-Stand: CGA Stand-sit: S Gait: Patient is nonambulatory at the [facility] utilizes a wheelchair for mobility. Patient was able to take 5 steps from commode to bedside chair with FWW CGA. Balance: Static Sitting: Normal Dynamic Sitting: Good Static Standing: Fair Dynamic Standing: Fair Special Tests: Mobility Limitations Standardized Measure [facility] AM-PAC 6 clicks Basic Mobility Inpatient Short Form: Raw Score: 16 CMS Score: 54% Informed Consent/Education: Patient instructed in purpose of PT consult and plan of care. Assessment: Patient is a 70 year old male referred to physical therapy services with the diagnosis of acute cholecyctitis. Patient presents with clinical signs and symptoms consistent with current/admitting diagnoses that have resulted to mobility limitations, gait instability, generalized weakness, and impairment of motor control as demonstrated by the following impairment level findings: 1. Decreased strength to B UE/LE major muscle groups 2. Impaired standing balance 3. Impaired activity tolerance Impairments are contributing to the following functional limitations: 1. Increased dependence with transfers 2. Increase completion time for mobility ADL performance 3. Increased fall risk 4. Decreased tolerance for ambulation without use of assistive device Patient is assessed as a Moderate 86122 complexity based on the following: History: As above Examination: As above Presentation: Evolving Decision Making: Moderate Goals: Goals X1 week 1. Supine-Sit SBA 2. Sit-Supine Independent 3. Sit-Stand Supervision 4. Stand-Sit Supervision 5. Bed-Chair Supervision with FWW 6. Chair-Bed Supervision with FWW Plan of Care/Treatment Plan: 1-2x/day, 7 days/week x 1 week. Plan of care has been reviewed with the PAINTER providing the service under Physical Therapy direction. Initiate Physical Therapy intervention for strengthening, bed mobility, transfers, gait, stairs, balance training, use of assistive device. DISCHARGE RECOMMENDATIONS: Patient to return to [facility] once medically cleared TREATMENT CODE/TIME: 97164, 30 minutes IE 9:20am [facility] Disclaimer: This note was created using [employer] voice recognition software. It was reviewed for major content. However, there may be multiple small discrepancies and errors due to the voice recognition aspects of the software.
--- NOTE | 2021-06-23 10:12 | PGE_ITS ---
Date of Service Date of service: 06/23/21 Time of Service: 15:12 Assessment and Plan Assessment and plan (1) Acute cholecystitis: Status: Acute Assessment and plan: S/p laparoscopic cholecystectomy 06/21/21 -Perioperative bile cx growing E.coli -Leukocytosis downtrending; continue IV Zosyn for now -LFTs normalizing -Monitor drain output, ~80cc over the last 24h -Encourage patient to use incentive spirometer and get out of bed with assistance to the chair; he did work with PT today -Encouraged to eat slowly, explained how body has to adjust to no longer having bile reservoir to aid in digestion of fats -Requesting diet be changed so that he can use salt (not provided with any salt on heart healthy diet) -D/C [place] -Downgraded out of ICU (2) Hyponatremia, hypo-osmolarity, or hypo-osmolar hyponatremia: Status: Acute Assessment and plan: -Check urine electrolytes -Question beer potomania vs SIADH (3) History of empyema of pleura: Status: Chronic Assessment and plan: -Stable; unchanged respiratory status -Should be followed up on by pulmonology (4) COPD (chronic obstructive pulmonary disease): Status: Chronic (5) HTN (hypertension) with goal to be determined: Status: Chronic (6) Alcohol abuse: Status: Chronic Assessment and plan: -Currently has no symptoms of withdrawal -Dietary request to provide 12oz beer with dinner tray if possible (7) Presence of cardiac pacemaker: Status: Chronic Assessment and plan: -Secondary to complete heart block (8) Coronary artery disease: Status: Chronic (9) DVT prophylaxis: Status: Acute Assessment and plan: -Continue subcutaneous Lovenox (10) Discharge planning issues: Status: Acute Assessment and plan: -Will likely return to [facility] living where he currently resides (11) Sacroiliitis: Status: Acute Assessment and plan: -Consider MRI to rule out presence of osteomyelitis -Apparently was previously attempted to be treated but patient reports lack of any improvement (12) DNR (do not resuscitate): Status: Acute (13) Obesity: Status: Chronic (14) Vitamin D deficiency: Status: Acute (15) History of permanent cardiac pacemaker placement: (16) CHB (complete heart block): Subjective Subjective Patient reports: no new complaints, still having pain, flatus, bowel movement and afebrile; denies nausea or vomiting Interval history since last seen: Patient reports pain is mildly improved today; eating egg salad sandwich during my encounter Exam Const General: cooperative and other (uncomfortable due to pain) Nutritional Appearance: overweight [facility] General nose exam: other (large rhinophyma ) Teeth and gingiva: poor dentition Eyes General: appearance normal, both eyes and all related structures Resp Effort & Inspection: normal respiratory effort, able to speak in complete sentences, not labored, no respiratory distress and tachypneic Cardio Rate: regular rate Rhythm: regular rhythm GI Inspection: incision (intact with skin glue), obesity and other (drain RUQ serosanguineous;decreased output) Palpation: soft, guarding and tender in the RUQ and at McBurney's point Skin General skin exam: no rashes or lesions noted Objective Last Vital Signs Temp 98.4 F 06/23/21 08:35 Pulse 78 06/23/21 07:15 Resp 24 06/23/21 07:15 BP 131/80 06/23/21 07:15 Pulse Ox 95 06/23/21 07:15 Laboratory Results - last 24 hr 06/23/21 06/23/21 06/23/21 04:00 05:10 05:10 WBC 13.92 H RBC 2.72 L Hgb 9.0 L Hct 26.9 L MCV 98.9 H MCH 33.1 H MCHC 33.5 RDW 13.0 Plt Count 257 MPV 11.0 Immature Gran % 1.4 Neutrophils % 71.1 Lymphocytes % 14.9 Monocytes % 11.7 Eosinophils % 0.6 Basophils % 0.3 Nucleated RBC % 0.0 Absolute Neutrophils 9.90 H Absolute Lymphocytes 2.07 Absolute Monocytes 1.63 H Absolute Eosinophils 0.08 Absolute Basophils 0.04 RBC Morphology Normal Sodium 131 L Potassium 3.4 L Chloride 99 Carbon Dioxide 27.4 Anion Gap 4.6 BUN 18 D Creatinine 0.7 Estimated GFR/1.73 m2 >= 60.00 Glucose 102 Calcium 8.2 L Magnesium 1.7 L Total Bilirubin Conjugated Bilirubin AST ALT Alkaline Phosphatase Total Protein Albumin Lipase 47 TSH 1.38 Ur Random Sodium 24 06/23/21 05:10 WBC RBC Hgb Hct MCV MCH MCHC RDW Plt Count MPV Immature Gran % Neutrophils % Lymphocytes % Monocytes % Eosinophils % Basophils % Nucleated RBC % Absolute Neutrophils Absolute Lymphocytes Absolute Monocytes Absolute Eosinophils Absolute Basophils RBC Morphology Sodium Potassium Chloride Carbon Dioxide Anion Gap BUN Creatinine Estimated GFR/1.73 m2 Glucose Calcium Magnesium Total Bilirubin 0.4 Conjugated Bilirubin 0.1 AST 30 ALT 82 H Alkaline Phosphatase 75 Total Protein 6.8 Albumin 2.2 L Lipase TSH Ur Random Sodium PAWSS Have you Been Recently Intoxicated or Drunk Within the Last 30 days?: No Have you Ever Experienced Previous Episodes of Alcohol Withdrawal?: No Have you ever Experienced Withdrawal Seizures?: No Have you ever Experienced Delirium Tremens(DT)s?: No Have you ever undergone Alcohol Rehabilitation Treatment (i.e, inpt ot outpatient treatment programs)?: No Have you ever Experienced Blackouts?: No Have you ever Combined Alcohol with other Downers within the last 90 days?: No Have you ever Combined Alcohol with any other Substance of Abuse during the last 90 days?: No Positive Blood Alcohol level on Presentation? [PCS.BAL]: Unable to Obtain Evidence of Increased Autonomic Activity (i.e. HR>120, tremor, sweating, agitation, nausea)?: No Result: 0
--- NOTE | 2021-06-23 11:02 | PGE_ITS ---
Date of Service Date of service: 06/23/21 Time of Service: 08:50 Assessment and Plan Assessment and plan (1) Acute cholecystitis: Status: Acute Assessment and plan: S/p lap cholecystectomy 06/21/21 with EBL of 200 cc. Doing well postop, passing flatus, but no BM yet. Tolerating a diet. Being moved to medical surgical floor. On zosyn. (2) Hyponatremia, hypo-osmolarity, or hypo-osmolar hyponatremia: Status: Acute Assessment and plan: Acute on chronic, now stable. Post 3% saline/DDAVP lock. No longer on IVF. (3) History of empyema of pleura: Status: Chronic Assessment and plan: Chronic - reviewed by [facility] pulmonology - not felt to require intervention. (4) COPD (chronic obstructive pulmonary disease): Status: Chronic Assessment and plan: At baseline, not in acute exacerbation. Encourage pulmonary toilet (5) HTN (hypertension) with goal to be determined: Status: Chronic Assessment and plan: Transition to home toprol XL. (6) Alcohol abuse: Status: Chronic Assessment and plan: No evidence of EtOH withdrawal so far. Continue thiamine. (7) Presence of cardiac pacemaker: Status: Chronic Assessment and plan: Functioning well. F/u as outpatient. (8) Coronary artery disease: Status: Chronic Assessment and plan: No evidence of ACS at this time. (9) CHB (complete heart block): Assessment and plan: Status post AV pacemaker. Functioning well. (10) Hypokalemia: Status: Acute Assessment and plan: Replete, recheck in am (11) Hypomagnesemia: Status: Acute Assessment and plan: Replete, recheck in am (12) DVT prophylaxis: Status: Acute Assessment and plan: SC enoxaparin (13) Discharge planning issues: Status: Acute Assessment and plan: DNR/DNI. Being transferred to the medical surgical floor today. Hospitalists are signing off - please reconsult if needed. Subjective Subjective Interval history since last seen: Mr Mera reported abdominal pain, spasm like, which got better after he got up to the commode and the chair and passed flatus. Still no BM. He does not agree to use an incentive spirometer - we discussed that this would prevent pneumonia and that he should. He denies dizziness, chest pain, shortness of breath, nausea. Tolerating PO. Being transferred to medical surgical floor. Exam Narrative Exam Narrative: General: Pleasant elderly male who is awake, irritable, A&Ox3, Seen both laying in bed and then sitting in a chair HEENT: EOMI, MMM, rhinophyma (nonerythematous) Heart: RRR, no m/r/g Lungs: Diminished breath sounds B posteriorly with faint rales at the bases Abdomen: RUQ incision dressed - c/d/i; LEYDA drain with serosanguenous fluid. Has a coleman catheter. Extremities: no edema BLEs Objective Last Vital Signs Temp 36.9 C 06/23/21 08:35 Pulse 78 06/23/21 07:15 Resp 24 06/23/21 07:15 BP 131/80 06/23/21 07:15 Pulse Ox 95 06/23/21 07:15 Laboratory Results - last 24 hr 06/23/21 06/23/21 06/23/21 04:00 05:10 05:10 WBC 13.92 H RBC 2.72 L Hgb 9.0 L Hct 26.9 L MCV 98.9 H MCH 33.1 H MCHC 33.5 RDW 13.0 Plt Count 257 MPV 11.0 Immature Gran % 1.4 Neutrophils % 71.1 Lymphocytes % 14.9 Monocytes % 11.7 Eosinophils % 0.6 Basophils % 0.3 Nucleated RBC % 0.0 Absolute Neutrophils 9.90 H Absolute Lymphocytes 2.07 Absolute Monocytes 1.63 H Absolute Eosinophils 0.08 Absolute Basophils 0.04 RBC Morphology Normal Sodium 131 L Potassium 3.4 L Chloride 99 Carbon Dioxide 27.4 Anion Gap 4.6 BUN 18 D Creatinine 0.7 Estimated GFR/1.73 m2 >= 60.00 Glucose 102 Calcium 8.2 L Magnesium 1.7 L Total Bilirubin Conjugated Bilirubin AST ALT Alkaline Phosphatase Total Protein Albumin Lipase 47 TSH 1.38 Ur Random Sodium 24 06/23/21 05:10 WBC RBC Hgb Hct MCV MCH MCHC RDW Plt Count MPV Immature Gran % Neutrophils % Lymphocytes % Monocytes % Eosinophils % Basophils % Nucleated RBC % Absolute Neutrophils Absolute Lymphocytes Absolute Monocytes Absolute Eosinophils Absolute Basophils RBC Morphology Sodium Potassium Chloride Carbon Dioxide Anion Gap BUN Creatinine Estimated GFR/1.73 m2 Glucose Calcium Magnesium Total Bilirubin 0.4 Conjugated Bilirubin 0.1 AST 30 ALT 82 H Alkaline Phosphatase 75 Total Protein 6.8 Albumin 2.2 L Lipase TSH Ur Random Sodium PAWSS Have you Been Recently Intoxicated or Drunk Within the Last 30 days?: No Have you Ever Experienced Previous Episodes of Alcohol Withdrawal?: No Have you ever Experienced Withdrawal Seizures?: No Have you ever Experienced Delirium Tremens(DT)s?: No Have you ever undergone Alcohol Rehabilitation Treatment (i.e, inpt ot outpatient treatment programs)?: No Have you ever Experienced Blackouts?: No Have you ever Combined Alcohol with other Downers within the last 90 days?: No Have you ever Combined Alcohol with any other Substance of Abuse during the last 90 days?: No Positive Blood Alcohol level on Presentation? [PCS.BAL]: Unable to Obtain Evidence of Increased Autonomic Activity (i.e. HR>120, tremor, sweating, agitation, nausea)?: No Result: 0
[2021-06-23] MEDS: Metoprolol CR 100 MG TABCR 200 MG PO (11:50)
--- NOTE | 2021-06-23 12:19 | NUR.NOTE ---
Blood sugar is 135.Nursing Note:
[2021-06-23] MEDS: POTASSIUM CHLORIDE/0.9% NACL 1,000 ML 50 MEQ IV (14:01)
[2021-06-23] MEDS: traMADol 50 MG TAB PO (16:24)
[2021-06-23] MEDS: THIAMINE 100 MG in Normal Saline 100 ML 200 MG IVPB (18:09)
[2021-06-23] MEDS: Pantoprazole 40 MG VIAL IVP (20:27)
[2021-06-23 22:02] LABS: Osmolality, Urine 509 mOsm/kg (150-1,150)
[2021-06-24] VITALS (7 sets, daily range): BP systolic 109–158; BP diastolic 71–94; PULSE 69–84; RESP 18–25; TEMP 36.5–37; O2SAT 92–94
[2021-06-24] MEDS: ACETAMINOPHEN 1,000 MG/100 ML BTL 400 MG IVPB ×2 (01:06→10:24)
[2021-06-24] MEDS: PIPERACILLIN/TAZO 3.375 GM in Normal Saline 50 ML IVPB ×3 (01:39→14:22)
[2021-06-24] MEDS: MORPHine 2 MG/ML SYR IVP (06:42)
[2021-06-24 06:51] LABS: Abs Immature Grans 0.23 10^3/uL (0.0-0.06); Absolute Basophil Count 0.08 10^3/uL (0.0-0.2); Absolute Eosinophil Count 0.42 10^3/uL (0.0-0.7); Absolute Lymphocyte Count 2.22 10^3/uL (1.2-3.4); Absolute Monocyte Count 1.45 10^3/uL (0.1-0.8); Basophils % 0.7; Eosinophils % 3.7; HGB 8.8 g/dL (13.5-17.5); Lymphocytes % 19.5; MCH 32.6 pg (27.0-33.0); MCHC 32.6 % (32.0-36.0); MPV 10.8 fL (8.0-11.0); Monocytes % 12.7; Neutrophils % 61.4; Platelet Count 255 10^3/uL (130-400); RDW 12.8 % (11.8-14.1); RDW-SD 46.7 fL; WBC 11.38 10^3/uL (4.4-10.8)
[2021-06-24 06:55] LABS: Absolute Neutrophil Count 6.99 10^3/uL (1.2-6.7)
[2021-06-24 07:06] LABS: ALT 58 U/L (16-63); AST 23 U/L (15-37); Albumin 2.1 g/dL (3.4-5.0); Alkaline Phosphatase 81 U/L (46-116); Anion Gap 6.7 mmol/L (3-11); BUN 18 mg/dL (7-18); Bilirubin, Direct 0.1 mg/dL (0.0-0.2); Bilirubin, Total 0.3 mg/dL (0.2-1.0); CO2 27.3 mmol/L (21.0-32.0); CREATININE 0.6 mg/dL (0.70-1.30); Calcium 8.2 mg/dL (8.5-10.1); Chloride 103 mmol/L (98-107); Glucose 90 mg/dL (74-106); Magnesium 1.7 mg/dL (1.8-2.4); Potassium 3.8 mmol/L (3.5-5.1); Sodium 137 mmol/L (136-145); Total Protein 6.3 g/dL (6.4-8.2)
[2021-06-24] MEDS: Budesonide/Formoterol 80/4.5 6.9 GM 60 PUFF INH IH ×2 (07:20→20:26)
[2021-06-24] MEDS: Tiotropium Bromide-Respimat 10 PUFF INH 2 PUFF IH (07:20)
[2021-06-24] MEDS: Metoprolol CR 50 MG TABCR 200 MG PO (10:22)
[2021-06-24] MEDS: Tamsulosin 0.4 MG CAPCR PO (10:23)
[2021-06-24] MEDS: Enoxaparin 30 MG/0.3 ML SYR SC (10:23)
[2021-06-24] MEDS: Sertraline 25 MG TAB PO (10:23)
[2021-06-24] MEDS: Normal Saline Flush 10 ML SYR IVP ×3 (10:24→20:25)
[2021-06-24] MEDS: Protein Nutritional Supplement 16 GM 1 OUNCE PACKET PO ×3 (10:25→20:25)
--- NOTE | 2021-06-24 14:17 | PT.INTREAT ---
Date of service: 06/24/21 Time of Service: 08:50 PT Notes Visit Reasons: Acute Cholecystitis Inpatient Physical Therapy Treatment Note [facility] Date: 06/24/2021 PRECAUTIONS: Standard SUBJECTIVE: Stated he is willing to get up in chair only if he is able to go back to bed when ready to do so. Nurse Christian agreed to get Tim back to bed if he felt the chair was getting too uncomfortable. OBJECTIVE: PAIN: Complained of pain in right ribcage region once while in sitting. BED MOBILITY/TRANSFERS Supine-sit: I with HOB at 40 degrees Sit-stand: SBA Stand-sit: SBA GAIT Assistive Device: FWW Weight bearing: FWW Assist: SBA Distance: 4ft bed to chair THEREX: See flow sheet for details. ASSESSMENT: Tolerated today's PT session fair. Needs a lot of encouragement to motivate patient. PLAN: Continue to focus on improved functional mobility. TREATMENT CODE/TIME: 60215/ 13709, 8:50 to 9:25 am (35')
--- NOTE | 2021-06-24 15:21 | W.PM.PROGNOT ---
Date of Service Date of service: 06/24/21 Time of Service: 15:22 Assessment and Plan Assessment and plan (1) Acute cholecystitis: Status: Acute Assessment and plan: S/p laparoscopic cholecystectomy 06/21/21 -Perioperative bile cx growing E.coli -Leukocytosis downtrending; d/c zosyn tonight -LFTs normalized -Monitor drain output, decreasing but appears light bilious today -Encourage patient to use incentive spirometer and get out of bed with assistance to the chair; he did work with PT again today -Encouraged to eat slowly, explained how body has to adjust to no longer having bile reservoir to aid in digestion of fats -Requesting diet be changed so that he can use salt (not provided with any salt on heart healthy diet) -possible d/c back to [facility] in next 24-48hrs (2) Hyponatremia, hypo-osmolarity, or hypo-osmolar hyponatremia: Status: Acute Assessment and plan: -Check urine electrolytes -Question beer potomania vs SIADH (3) History of empyema of pleura: Status: Chronic Assessment and plan: -Stable; unchanged respiratory status -Should be followed up on by pulmonology (4) COPD (chronic obstructive pulmonary disease): Status: Chronic (5) HTN (hypertension) with goal to be determined: Status: Chronic (6) Alcohol abuse: Status: Chronic Assessment and plan: -Currently has no symptoms of withdrawal (7) Presence of cardiac pacemaker: Status: Chronic Assessment and plan: -Secondary to complete heart block (8) Coronary artery disease: Status: Chronic (9) DVT prophylaxis: Status: Acute Assessment and plan: -Continue subcutaneous Lovenox (10) Discharge planning issues: Status: Acute Assessment and plan: -Will likely return to [facility] assisted living where he currently resides (11) Sacroiliitis: Status: Acute Assessment and plan: -Consider MRI to rule out presence of osteomyelitis -Apparently was previously attempted to be treated but patient reports lack of any improvement (12) DNR (do not resuscitate): Status: Acute (13) Obesity: Status: Chronic (14) Vitamin D deficiency: Status: Acute (15) History of permanent cardiac pacemaker placement: (16) CHB (complete heart block): Subjective Subjective Patient reports: still having pain, flatus, bowel movement, nausea and vomiting Interval history since last seen: continues to have significant right sided abdominal pain Exam Const General: cooperative, uncomfortable and no acute distress (intermittent sharp abdominal pains) Resp Effort & Inspection: normal respiratory effort, able to speak in complete sentences and no respiratory distress GI Inspection: non-distended and incision (intact ) Palpation: soft, guarding in the RLQ and in the RUQ, tender in the RLQ and in the RUQ and other (drain in place, light bilious) Neuro General: patient alert, patient awake and patient oriented x3 Objective Last Vital Signs Temp 98.6 F 06/24/21 11:40 Pulse 69 06/24/21 11:40 Resp 18 06/24/21 11:40 BP 109/71 06/24/21 11:40 Pulse Ox 93 06/24/21 11:40 Laboratory Results - last 24 hr 06/23/21 06/24/21 06/24/21 04:00 06:05 06:05 WBC 11.38 H RBC 2.70 L Hgb 8.8 L Hct 27.0 L MCV 100.0 H MCH 32.6 MCHC 32.6 RDW 12.8 Plt Count 255 MPV 10.8 Immature Gran % 2.0 Neutrophils % 61.4 Lymphocytes % 19.5 Monocytes % 12.7 Eosinophils % 3.7 Basophils % 0.7 Nucleated RBC % 0.0 Absolute Neutrophils 6.99 H Absolute Lymphocytes 2.22 Absolute Monocytes 1.45 H Absolute Eosinophils 0.42 Absolute Basophils 0.08 Sodium 137 Potassium 3.8 Chloride 103 Carbon Dioxide 27.3 Anion Gap 6.7 BUN 18 Creatinine 0.6 L Estimated GFR/1.73 m2 >= 60.00 Glucose 90 Calcium 8.2 L Magnesium 1.7 L Total Bilirubin 0.3 Conjugated Bilirubin 0.1 AST 23 ALT 58 Alkaline Phosphatase 81 Total Protein 6.3 L Albumin 2.1 L Urine Osmolality 509 PAWSS Have you Been Recently Intoxicated or Drunk Within the Last 30 days?: No Have you Ever Experienced Previous Episodes of Alcohol Withdrawal?: No Have you ever Experienced Withdrawal Seizures?: No Have you ever Experienced Delirium Tremens(DT)s?: No Have you ever undergone Alcohol Rehabilitation Treatment (i.e, inpt ot outpatient treatment programs)?: No Have you ever Experienced Blackouts?: No Have you ever Combined Alcohol with other Downers within the last 90 days?: No Have you ever Combined Alcohol with any other Substance of Abuse during the last 90 days?: No Positive Blood Alcohol level on Presentation? [PCS.BAL]: Unable to Obtain Evidence of Increased Autonomic Activity (i.e. HR>120, tremor, sweating, agitation, nausea)?: No Result: 0
[2021-06-24] MEDS: Magnesium Oxide 400 MG TAB PO (15:42)
[2021-06-24] MEDS: Potassium Chloride Liquid 20 MEQ PKT 40 MEQ PO (15:42)
[2021-06-24] MEDS: THIAMINE 100 MG in Normal Saline 100 ML 200 MG IVPB (17:19)
[2021-06-24] MEDS: Pantoprazole 40 MG VIAL IVP (20:25)
[2021-06-25] MEDS: Normal Saline Flush 10 ML SYR IVP ×3 (02:13→19:59)
[2021-06-25] MEDS: ACETAMINOPHEN 1,000 MG/100 ML BTL 400 MG IVPB ×2 (02:13→09:37)
--- NOTE | 2021-06-25 02:21 | NUR.NOTE ---
Nursing Note: Pt refusing to use IS. RN placed IS on table for PT. Pt stated dont bother giving me that. It wont do me any good. RN explained that the IS Is to help prevent PNA after surgery. Pt declined use. States he understands risks of refusal. Charge nurse made aware.
[2021-06-25 03:40] VITALS: BP 147/76; PULSE 70; RESP 20; TEMP 37.1; O2SAT 93
[2021-06-25 06:22] LABS: Abs Immature Grans 0.43 10^3/uL (0.0-0.06); Absolute Basophil Count 0.09 10^3/uL (0.0-0.2); Absolute Eosinophil Count 0.61 10^3/uL (0.0-0.7); Absolute Lymphocyte Count 2.21 10^3/uL (1.2-3.4); Absolute Monocyte Count 1.45 10^3/uL (0.1-0.8); Absolute Neutrophil Count 6.65 10^3/uL (1.2-6.7); Basophils % 0.8; Eosinophils % 5.3; HCT 28.1 % (40.0-50.0); HGB 9.3 g/dL (13.5-17.5); Immature Grans % 3.8; Lymphocytes % 19.3; MCH 33.2 pg (27.0-33.0); MCHC 33.1 % (32.0-36.0); MCV 100.4 fL (80-95); MPV 10.6 fL (8.0-11.0); Monocytes % 12.7; Neutrophils % 58.1; Platelet Count 311 10^3/uL (130-400); RDW 12.8 % (11.8-14.1); RDW-SD 47.3 fL; WBC 11.44 10^3/uL (4.4-10.8)
[2021-06-25 06:38] LABS: Anion Gap 6.8 mmol/L (3-11); BUN 13 mg/dL (7-18); CO2 27.2 mmol/L (21.0-32.0); CREATININE 0.5 mg/dL (0.70-1.30); Calcium 8.4 mg/dL (8.5-10.1); Chloride 100 mmol/L (98-107); Glucose 99 mg/dL (74-106); Magnesium 1.5 mg/dL (1.8-2.4); Potassium 3.8 mmol/L (3.5-5.1); Sodium 134 mmol/L (136-145)
[2021-06-25 08:17] VITALS: BP 143/86; PULSE 67; RESP 18; TEMP 36.8; O2SAT 94
--- NOTE | 2021-06-25 08:34 | CMPROGNOTE_ITS ---
- If Service Date Differs Date of service: 06/25/21 Time of Service: 08:34 Care Management Progress Note S/O:Tim was sitting up in bed when CM met with him. He seemed to be in good spirits and had been told he may be discharged later in the day. Although Tim stated that he is anxious to return to the [facility], he wished he hadn't been told maybe. He observed that he would be disappointed if he were not able to be discharged. Tim's pain is better controlled and his vital signs are stable. A:Tim is a 70 year old man admitted with cholecystitis on 06/20/21 P:Tim will return to the [facility] when medically cleared by provider. He will follow up with [facility], Palliative Care, and his discharge plan of care as instructed. CM will continue to follow.
[2021-06-25] MEDS: Tiotropium Bromide-Respimat 10 PUFF INH 2 PUFF IH (08:39)
[2021-06-25] MEDS: Budesonide/Formoterol 80/4.5 6.9 GM 60 PUFF INH IH ×2 (08:39→19:58)
[2021-06-25] MEDS: Polyethylene Glycol 3350 17 GM PACKET PO (09:35)
[2021-06-25] MEDS: Metoprolol CR 50 MG TABCR 200 MG PO (09:36)
[2021-06-25] MEDS: Tamsulosin 0.4 MG CAPCR PO (09:36)
[2021-06-25] MEDS: Sertraline 25 MG TAB PO (09:36)
[2021-06-25] MEDS: Protein Nutritional Supplement 16 GM 1 OUNCE PACKET PO ×3 (09:37→19:58)
[2021-06-25] MEDS: Enoxaparin 30 MG/0.3 ML SYR SC (09:37)
[2021-06-25 11:33] VITALS: BP 146/90; PULSE 64; RESP 18; TEMP 36.9; O2SAT 95
--- NOTE | 2021-06-25 12:49 | PGE_ITS ---
Date of Service Date of service: 06/25/21 Time of Service: 12:49 Assessment and Plan Assessment and plan (1) Acute cholecystitis: Status: Acute Assessment and plan: S/p laparoscopic cholecystectomy 06/21/21 -Perioperative bile cx growing E.coli -Leukocytosis will continue antibiotics; restarted Zosyn -LFTs normalized -Monitor drain output, decreasing but appears bloody today -Encourage patient to use incentive spirometer and get out of bed with assistance to the chair -[facility] (2) Hyponatremia, hypo-osmolarity, or hypo-osmolar hyponatremia: Status: Acute Assessment and plan: -Check urine electrolytes -Question beer potomania vs SIADH (3) History of empyema of pleura: Status: Chronic Assessment and plan: -Stable; unchanged respiratory status -Should be followed up on by pulmonology (4) COPD (chronic obstructive pulmonary disease): Status: Chronic (5) HTN (hypertension) with goal to be determined: Status: Chronic (6) Alcohol abuse: Status: Chronic Assessment and plan: -Currently has no symptoms of withdrawal (7) Presence of cardiac pacemaker: Status: Chronic Assessment and plan: -Secondary to complete heart block (8) Coronary artery disease: Status: Chronic (9) DVT prophylaxis: Status: Acute Assessment and plan: -Continue subcutaneous Lovenox (10) Discharge planning issues: Status: Acute Assessment and plan: -Will likely return to [facility] assisted living where he currently resides (11) Sacroiliitis: Status: Acute (12) DNR (do not resuscitate): Status: Acute (13) Obesity: Status: Chronic (14) Vitamin D deficiency: Status: Acute (15) History of permanent cardiac pacemaker placement: (16) CHB (complete heart block): Subjective Subjective Interval history since last seen: Patient reports he is feeling well. He states his abdomen continues to be sore especially on the right side. He is tolerating a regular diet at this time. He expresses that he is eager to return to the [facility]. Exam Const General: cooperative, healthy appearing and comfortable Orientation: alert and oriented x3 Resp Effort & Inspection: normal respiratory effort, no audible wheezes and no cough GI Inspection: normal to inspection Palpation: soft, no guarding and tender in the RLQ and in the RUQ Auscultation: normal bowel sounds Objective Last Vital Signs Temp 36.9 C 06/25/21 11:33 Pulse 64 06/25/21 11:33 Resp 18 06/25/21 11:33 BP 146/90 H 06/25/21 11:33 Pulse Ox 95 06/25/21 11:33 Laboratory Results - last 24 hr 06/25/21 06/25/21 05:32 05:32 WBC 11.44 H RBC 2.80 L Hgb 9.3 L Hct 28.1 L MCV 100.4 H MCH 33.2 H MCHC 33.1 RDW 12.8 Plt Count 311 MPV 10.6 Immature Gran % 3.8 Neutrophils % 58.1 Lymphocytes % 19.3 Monocytes % 12.7 Eosinophils % 5.3 Basophils % 0.8 Nucleated RBC % 0.0 Absolute Neutrophils 6.65 Absolute Lymphocytes 2.21 Absolute Monocytes 1.45 H Absolute Eosinophils 0.61 Absolute Basophils 0.09 Sodium 134 L Potassium 3.8 Chloride 100 Carbon Dioxide 27.2 Anion Gap 6.8 BUN 13 Creatinine 0.5 L Estimated GFR/1.73 m2 >= 60.00 Glucose 99 Calcium 8.4 L Magnesium 1.5 L PAWSS Have you Been Recently Intoxicated or Drunk Within the Last 30 days?: No Have you Ever Experienced Previous Episodes of Alcohol Withdrawal?: No Have you ever Experienced Withdrawal Seizures?: No Have you ever Experienced Delirium Tremens(DT)s?: No Have you ever undergone Alcohol Rehabilitation Treatment (i.e, inpt ot outpatient treatment programs)?: No Have you ever Experienced Blackouts?: No Have you ever Combined Alcohol with other Downers within the last 90 days?: No Have you ever Combined Alcohol with any other Substance of Abuse during the last 90 days?: No Positive Blood Alcohol level on Presentation? [PCS.BAL]: Unable to Obtain Evidence of Increased Autonomic Activity (i.e. HR>120, tremor, sweating, agitation, nausea)?: No Result: 0
[2021-06-25] MEDS: Thiamine 100 MG TAB PO (14:04)
[2021-06-25] MEDS: PIPERACILLIN/TAZO 3.375 GM in Normal Saline 50 ML IVPB ×2 (14:05→19:58)
--- NOTE | 2021-06-25 15:38 | PT.INTREAT ---
Date of service: 06/25/21 Time of Service: 11:27 PT Notes Visit Reasons: Acute Cholecystitis Inpatient Physical Therapy Treatment Note [facility] Date: 06/25/2021 PRECAUTIONS: Activity as tolerated SUBJECTIVE: Tim is agreeable to participate in PT. He reports that he does not ambulate much at baseline, uses a wheelchair for distances greater than ~20 feet due to chronic knee pain and SOB. OBJECTIVE: ? PAIN: Patient c/o L knee pain with gait training ? BED MOBILITY/TRANSFERS? Supine-sit: I Sit-supine: I Sit-stand: SBA? Stand-sit: SBA? GAIT? Assistive Device: FWW? Weight bearing: Full Assist: SBA ? Distance:? 10' + 8' in a.m.; 8' + 10' in p.m. ? Deviation: SOB, L knee discomfort, slow pace ? THEREX: Patient refused ther ex due to knee discomfort TOILETING: Patient toileted with SBA for transfers ASSESSMENT: Patient was able to tolerate a slight progression in gait distance with FWW support. He demonstrates slow pacing and SOB with gait training. PLAN: Continue with gait and transfer training as well as general conditioning for improved mobility and activity tolerance. TREATMENT CODE/TIME: Session 1: 24 minutes; 50435 x2 (11:27) ? Session 2: 28 minutes; 39063 x2 (12:38)
[2021-06-25 16:11] VITALS: BP 138/89; PULSE 94; RESP 20; TEMP 36.7; O2SAT 94
[2021-06-25 19:45] VITALS: BP 164/90; PULSE 73; RESP 16; TEMP 37; O2SAT 94
[2021-06-25] MEDS: traMADol 50 MG TAB PO (19:58)
[2021-06-25] MEDS: Pantoprazole 40 MG VIAL IVP (20:01)
[2021-06-25 21:46] LABS: Abs Immature Grans 0.46 10^3/uL (0.0-0.06); Absolute Monocyte Count 1.63 10^3/uL (0.1-0.8); Absolute Neutrophil Count 7.51 10^3/uL (1.2-6.7); Basophils % 0.6; Eosinophils % 5.2; HCT 29.7 % (40.0-50.0); Immature Grans % 3.7; Lymphocytes % 16.9; MCH 33.4 pg (27.0-33.0); MCHC 33.7 % (32.0-36.0); MCV 99.3 fL (80-95); MPV 10.2 fL (8.0-11.0); Monocytes % 13.1; Neutrophils % 60.5; Platelet Count 331 10^3/uL (130-400); RBC 2.99 10^6/uL (4.36-5.78); RDW 12.7 % (11.8-14.1); RDW-SD 45.7 fL; WBC 12.42 10^3/uL (4.4-10.8)
[2021-06-25 22:03] LABS: Absolute Basophil Count 0.07 10^3/uL (0.0-0.2); Absolute Eosinophil Count 0.65 10^3/uL (0.0-0.7)
[2021-06-25 22:04] LABS: Diff Comment Agrees w/ Instrument; Hypochromasia 1+
[2021-06-25 23:40] VITALS: BP 155/94; PULSE 81; RESP 18; TEMP 37.5; O2SAT 92
[2021-06-26] MEDS: PIPERACILLIN/TAZO 3.375 GM in Normal Saline 50 ML IVPB ×4 (01:41→19:54)
[2021-06-26] MEDS: Normal Saline Flush 10 ML SYR IVP ×4 (01:42→20:52)
[2021-06-26 03:35] VITALS: BP 146/90; PULSE 72; RESP 18; TEMP 37.3; O2SAT 93
[2021-06-26 07:28] VITALS: BP 110/74; PULSE 65; RESP 18; TEMP 36.6; O2SAT 92
--- NOTE | 2021-06-26 07:53 | W.PM.PROGNOT ---
Date of Service Date of service: 06/26/21 Time of Service: 07:54 Assessment and Plan Assessment and plan (1) Acute cholecystitis: Status: Acute Assessment and plan: S/p laparoscopic cholecystectomy 06/21/21 -Perioperative bile cx growing E.coli -Leukocytosis, increase in WBC count today. will continue antibiotic -May need CT scan in a few days to r/o absces -Minimal drain output, appears to be old blood -Encourage patient to use incentive spirometer and get out of bed with assistance to the chair CT: shows abscess in GB fossa. nothing coming out of drain so I pulled this and see if we can send for IR drain in am (2) History of empyema of pleura: Status: Chronic Assessment and plan: -Stable; unchanged respiratory status -Should be followed up on by pulmonology I did d/w pulm. this is old and prob scarring/plaque. Nothing free flowing to drain. does not require further f/u (3) COPD (chronic obstructive pulmonary disease): Status: Chronic (4) HTN (hypertension) with goal to be determined: Status: Chronic (5) Alcohol abuse: Status: Chronic Assessment and plan: -Currently has no symptoms of withdrawal (6) Presence of cardiac pacemaker: Status: Chronic Assessment and plan: -Secondary to complete heart block (7) Coronary artery disease: Status: Chronic (8) DVT prophylaxis: Status: Acute Assessment and plan: -Continue subcutaneous Lovenox (9) Discharge planning issues: Status: Acute Assessment and plan: -Will likely return to [facility] living where he currently resides (10) Sacroiliitis: Status: Acute (11) DNR (do not resuscitate): Status: Acute (12) Obesity: Status: Chronic (13) Vitamin D deficiency: Status: Acute (14) History of permanent cardiac pacemaker placement: (15) CHB (complete heart block): Subjective Subjective Interval history since last seen: Patient reports that his abdomen is sore, and hurts when he gets in and out of bed. Exam Const General: cooperative, healthy appearing and comfortable Orientation: alert and oriented x3 Resp Effort & Inspection: normal respiratory effort, no audible wheezes and no cough GI Inspection: normal to inspection Palpation: soft, no guarding and tender in the RLQ, in the LUQ and in the RUQ Objective Last Vital Signs Temp 36.6 C 06/26/21 07:28 Pulse 65 04/26/22 07:28 Resp 18 06/26/21 07:28 BP 110/74 06/26/21 07:28 Pulse Ox 92 06/26/21 07:28 Laboratory Results - last 24 hr 06/25/21 21:37 WBC 12.42 H RBC 2.99 L Hgb 10.0 L Hct 29.7 L MCV 99.3 H MCH 33.4 H MCHC 33.7 RDW 12.7 Plt Count 331 MPV 10.2 Immature Gran % 3.7 Neutrophils % 60.5 Lymphocytes % 16.9 Monocytes % 13.1 Eosinophils % 5.2 Basophils % 0.6 Nucleated RBC % 0.0 Absolute Neutrophils 7.51 H Absolute Lymphocytes 2.10 Absolute Monocytes 1.63 H Absolute Eosinophils 0.65 Absolute Basophils 0.07 RBC Morphology See Below Hypochromasia 1+ PAWSS Have you Been Recently Intoxicated or Drunk Within the Last 30 days?: No Have you Ever Experienced Previous Episodes of Alcohol Withdrawal?: No Have you ever Experienced Withdrawal Seizures?: No Have you ever Experienced Delirium Tremens(DT)s?: No Have you ever undergone Alcohol Rehabilitation Treatment (i.e, inpt ot outpatient treatment programs)?: No Have you ever Experienced Blackouts?: No Have you ever Combined Alcohol with other Downers within the last 90 days?: No Have you ever Combined Alcohol with any other Substance of Abuse during the last 90 days?: No Positive Blood Alcohol level on Presentation? [PCS.BAL]: Unable to Obtain Evidence of Increased Autonomic Activity (i.e. HR>120, tremor, sweating, agitation, nausea)?: No Result: 0
[2021-06-26] MEDS: Metoprolol CR 100 MG TABCR 200 MG PO (09:01)
[2021-06-26] MEDS: Enoxaparin 30 MG/0.3 ML SYR SC (09:01)
[2021-06-26] MEDS: Protein Nutritional Supplement 16 GM 1 OUNCE PACKET PO ×3 (09:01→19:54)
[2021-06-26] MEDS: Tamsulosin 0.4 MG CAPCR PO (09:01)
[2021-06-26] MEDS: Sertraline 25 MG TAB PO (09:01)
[2021-06-26] MEDS: Thiamine 100 MG TAB PO (09:01)
[2021-06-26] MEDS: Polyethylene Glycol 3350 17 GM PACKET PO (09:01)
[2021-06-26] MEDS: Budesonide/Formoterol 80/4.5 6.9 GM 60 PUFF INH IH ×2 (09:20→20:01)
[2021-06-26] MEDS: Tiotropium Bromide-Respimat 10 PUFF INH 2 PUFF IH (09:21)
--- NOTE | 2021-06-26 11:12 | CMPROGNOTE_ITS ---
- If Service Date Differs Date of service: 06/26/21 Time of Service: 11:12 Care Management Progress Note S/O:Tim was sitting up in bed when CM met with him. He was holding his abdomen and stated that he started to have an increase in abdominal pain during the night. A CT scan was done today which indicated the possibility of an abscess formation. Tim's WBC did increase from 11.44 to 12.42, however he remains afebrile. Orders have been written for Tim to be NPO after midnight for a down and back IR abscess drainage procedure at [facility] tomorrow. CM visited Tim again this afternoon but he was sleeping and CM did not wish to disturb him. A:Tim is a 70 year old man admitted with cholecystitis on 06/20/21 P:Tim will return to the [facility] when medically cleared by provider. He will follow up with [facility], [facility], and his discharge plan of care as instructed. CM will continue to follow.
[2021-06-26 11:13] VITALS: BP 134/76; PULSE 62; RESP 18; TEMP 36.9; O2SAT 94
[2021-06-26] MEDS: Omnipaque 350 MG/ML 100 ML BTL IJ (13:02)
--- NOTE | 2021-06-26 13:10 | DI.CT_ITS ---
Exam(s) CT ABDOMEN PELVIS W EXAM: CT ABDOMEN PELVIS W CLINICAL HISTORY: abscess/elevated wbc . s/p lap bonnie TECHNIQUE: Imaging Protocol: Axial computed tomography images with coronal and sagittal reformatted images were created and reviewed CONTRAST MATERIAL: Intravenous: Omnipaque 350 Contrast volume:100 mL Oral: Yes COMPARISON: CT CT ABDOMEN PELVIS W from 06/20/2021 FINDINGS: ABDOMEN: Lung Bases: There has been no change in the in capsulated fluid collection in the left lung base and the associated left lower lobe consolidation. Pleural calcifications are again seen in the right melinda g. Dense calcification of the mitral valve is noted. There is also calcification of the aortic valv e and coronary artery disease. The distal aspect of transvenous pacemaker lines are noted. Liver: Normal density. No measurable mass. Portal, Superior Mesenteric, and Splenic Veins: Unremarkable. Gallbladder and Biliary Tract: Status post cholecystectomy. There is a air-fluid collection in the g allbladder fossa measuring 6.7 x 4.5 cm. There are surgical clips adjacent to the fluid collection. There is a drainage catheter which lies on top of the fluid collection. Pancreas: Normal density, no abnormal calcifications or inflammatory process. Spleen: Normal. Adrenals: No masses seen. Kidneys: Normal size, contour and axis. No radiodense stones or obstructive uropathy. No masses seen. Abdominal Aorta: Abdominal portion non-dilated. Atherosclerosis. Bowel: No obstruction or bowel wall thickening. No evidence of acute appendicitis. There is divertic ulosis seen in the transverse descending and sigmoid colon, but no evidence of acute diverticulitis. There is a moderate amount of stool throughout the colon. Peritoneal Cavity: There is infiltration in the soft tissues in the region of the gallbladder fossa. No free air. Lymph Nodes: Within normal limits. Bones: Within normal limits for the patient's age. Soft Tissues: There are stable fluid collections in the subcutaneous fat along the right flank. Ther e is also a in capsulated partially calcified fluid collection overlying the posterior sacrum and lef t iliac bone. There is disruption of the cortex of the posterior left iliac bone adjacent to this fl uid collection. Osteomyelitis cannot be excluded. PELVIS: Bladder: Symmetric distention, no gross wall thickening. There is a new 2.5 x 1.5 cm fluid collection in the right pelvis posterior to the urinary bladder above the seminal vesicles. It appears partial ly in capsulated. This may represent an abscess. It is location adjacent to the urinary bladder can not exclude a diverticulum. Reproductive Organs: Unremarkable as visualized. Lymph Nodes: Within normal limits. Bones: Within normal limits for the patient's age. IMPRESSION: 1. 6.7 x 4.5 cm complex fluid collection in the gallbladder fossa suspicious for an abscess. 2. Stable sized fluid collection posterior to the sacrum and left iliac bone which may represent an a bscess. There is disruption of the cortex of the adjacent iliac bone and osteomyelitis cannot be exc luded. 3. Stable fluid collection and associated consolidation in the left lower lobe. 4. Stable subcutaneous fluid collections along the right flank. 5. New 2.5 x 1.5 cm fluid collection in the right pelvis. Abscess cannot be excluded. RADIATION DOSE DELIVERED: 1,767.76mGy.cm Total DLP DATA REPOSITORY: All CT scans at this facility are submitted to the National Radiology Data Registry (NRDR) Dose Index Registry (DIR) with the [employer] (A[employer]). RADIATION OPTIMIZATION: All CT scans at this facility use at least one of these dose optimization te chniques: automated exposure control; mA and/or kV adjustment per patient size (includes targeted exa ms where dose is matched to clinical indication); or iterative reconstruction.
--- NOTE | 2021-06-26 14:10 | DI.RAD_ITS ---
Exam(s) XR PORTABLE CHEST AP EXAM: XR PORTABLE CHEST AP CLINICAL HISTORY: left pleural eff/elevated WBC TECHNIQUE: 2D digital imaging was performed of the chest. One image was obtained. An AP view was ob tained. COMPARISON: CR XR CHEST 2V PA LATERAL from 06/21/2021 FINDINGS: There is poor inspiration resulting in low lung volumes. MEDIASTINUM: Normal. HEART: Normal. Transvenous pacing wires are stable. PULMONARY VASCULATURE: Normal. LUNGS: There is a stable opacity in the left lung base consistent with the patient's known left pleur al effusion and consolidation. Parenchymal scarring is seen in the right lung which appears stable. Given the decreased lung volumes no gross parenchymal changes are present. PLEURAL SPACE: No pleural effusion or pneumothorax. Right pleural calcifications are again seen. BONE:Within normal limits for the patient's age. OTHER FINDINGS:Normal. IMPRESSION: There does not appear to be significant change in appearance of the chest compared to the prior exami nation. DATA REPOSITORY: RADIATION DOSE DELIVERED:
--- NOTE | 2021-06-26 15:03 | PT.INNT ---
Date of service: 06/26/21 Time of Service: 15:03 PT Notes Visit Reasons: Acute Cholecystitis 06/26/2021 Patient refused both morning and afternoon PT sessions, stating that he is in too much pain today. Will attempt to resume PT services tomorrow morning.
[2021-06-26] MEDS: Magnesium Citrate 300 ML BTL PO (15:24)
[2021-06-26 15:25] VITALS: BP 158/94; PULSE 79; RESP 18; TEMP 36.7; O2SAT 96
[2021-06-26 19:36] VITALS: BP 126/76; PULSE 63; RESP 18; TEMP 36.5; O2SAT 94
[2021-06-26] MEDS: Pantoprazole 40 MG VIAL IVP (19:54)
[2021-06-26] MEDS: Acetaminophen 325 MG TAB 650 MG PO (20:51)
[2021-06-26] MEDS: MORPHine 2 MG/ML SYR IVP (20:51)
[2021-06-26 23:07] VITALS: BP 115/75; PULSE 63; RESP 17; TEMP 36.3; O2SAT 93
[2021-06-27] VITALS (7 sets, daily range): BP systolic 88–146; BP diastolic 60–83; PULSE 59–63; RESP 14–21; TEMP 36.2–36.6; O2SAT 92–94
[2021-06-27] MEDS: Normal Saline Flush 10 ML SYR IVP ×6 (01:47→19:43)
[2021-06-27] MEDS: PIPERACILLIN/TAZO 3.375 GM in Normal Saline 50 ML IVPB ×4 (01:47→19:43)
[2021-06-27 07:08] LABS: Abs Immature Grans 0.37 10^3/uL (0.0-0.06); Absolute Eosinophil Count 0.57 10^3/uL (0.0-0.7); Absolute Lymphocyte Count 1.87 10^3/uL (1.2-3.4); Absolute Monocyte Count 1.45 10^3/uL (0.1-0.8); Absolute Neutrophil Count 6.49 10^3/uL (1.2-6.7); Basophils % 0.6; Eosinophils % 5.3; HCT 28.3 % (40.0-50.0); HGB 9.5 g/dL (13.5-17.5); Immature Grans % 3.4; Lymphocytes % 17.3; MCH 33.2 pg (27.0-33.0); MCHC 33.6 % (32.0-36.0); MPV 9.7 fL (8.0-11.0); Monocytes % 13.4; Platelet Count 335 10^3/uL (130-400); RBC 2.86 10^6/uL (4.36-5.78); RDW 12.6 % (11.8-14.1); RDW-SD 45.5 fL; WBC 10.82 10^3/uL (4.4-10.8)
[2021-06-27 07:10] LABS: Absolute Basophil Count 0.06 10^3/uL (0.0-0.2)
[2021-06-27 07:21] LABS: ALT 53 U/L (16-63); AST 30 U/L (15-37); Albumin 2.1 g/dL (3.4-5.0); Alkaline Phosphatase 92 U/L (46-116); Anion Gap 3.7 mmol/L (3-11); BUN 10 mg/dL (7-18); Bilirubin, Total 0.3 mg/dL (0.2-1.0); CO2 29.3 mmol/L (21.0-32.0); CREATININE 0.5 mg/dL (0.70-1.30); Calcium 8.2 mg/dL (8.5-10.1); Chloride 98 mmol/L (98-107); Glucose 99 mg/dL (74-106); Potassium 3.6 mmol/L (3.5-5.1); Sodium 131 mmol/L (136-145); Total Protein 6.7 g/dL (6.4-8.2)
[2021-06-27] MEDS: Budesonide/Formoterol 80/4.5 6.9 GM 60 PUFF INH IH ×2 (07:51→19:43)
[2021-06-27] MEDS: Tiotropium Bromide-Respimat 10 PUFF INH 2 PUFF IH (07:51)
[2021-06-27] MEDS: Normal Saline 500 ML 30 ML IV (08:33)
[2021-06-27] MEDS: Protein Nutritional Supplement 16 GM 1 OUNCE PACKET PO ×3 (08:33→19:43)
[2021-06-27] MEDS: MORPHine 2 MG/ML SYR IVP ×3 (08:35→15:40)
[2021-06-27] MEDS: Metoprolol CR 100 MG TABCR 200 MG PO (08:36)
[2021-06-27] MEDS: Thiamine 100 MG TAB PO (08:36)
[2021-06-27] MEDS: Tamsulosin 0.4 MG CAPCR PO (08:36)
[2021-06-27] MEDS: Sertraline 25 MG TAB PO (08:36)
[2021-06-27] MEDS: Acetaminophen 325 MG TAB 650 MG PO (08:36)
--- NOTE | 2021-06-27 08:43 | PDOC.CMPRO ---
- If Service Date Differs Date of service: 06/27/21 Time of Service: 08:43 Care Management Progress Note S/O:Tim was sitting up in bed when CM met with him. He informed CM that he was unsure if he was still scheduled to go [place] [facility] [place]. CM discussed this with the CC and learned that since his WBC has come down, the surgical providers do not believe he has an abscess. CM informed Tim that the procedure has been cancelled. Tim is still complaining of abdominal pain. He was medicated earlier with morphine which he reported does help. He did share that the Tramadol is not as effective. A:Tim is a 70 year old man admitted with cholecystitis on 06/20/21 P:Tim will return to the [facility] when medically cleared by provider. He will follow up with [facility], [facility], and his discharge plan of care as instructed. CM will continue to follow.
--- NOTE | 2021-06-27 10:45 | PGE_ITS ---
Date of Service Date of service: 06/27/21 Time of Service: 07:01 Assessment and Plan Assessment and plan (1) Acute cholecystitis: Status: Acute Assessment and plan: S/p laparoscopic cholecystectomy 06/21/21 -Perioperative bile cx growing E.coli -Leukocytosis, trending downward -Drain d/c yesterday -Encourage patient to use incentive spirometer and get out of bed with assista nce to the chair -tolerating regular diet He is not going to [facility] for drainage. Surgacell was used intraoperatively, which is most likely causing the appearance of an abscess in the gallbladder fossa. WBC count is trending downward also. Will continue to monitor. (2) History of empyema of pleura: Status: Chronic Assessment and plan: -Stable; unchanged respiratory status -Should be followed up on by pulmonology I did d/w pulm. this is old and prob scarring/plaque. Nothing free flowing to drain. does not require further f/u (3) COPD (chronic obstructive pulmonary disease): Status: Chronic (4) HTN (hypertension) with goal to be determined: Status: Chronic (5) Alcohol abuse: Status: Chronic Assessment and plan: -Currently has no symptoms of withdrawal (6) Presence of cardiac pacemaker: Status: Chronic Assessment and plan: -Secondary to complete heart block (7) Coronary artery disease: Status: Chronic (8) DVT prophylaxis: Status: Acute Assessment and plan: -Continue subcutaneous Lovenox (9) Discharge planning issues: Status: Acute Assessment and plan: -Will likely return to [facility] assisted living where he currently resides (10) Sacroiliitis: Status: Acute (11) DNR (do not resuscitate): Status: Acute (12) Obesity: Status: Chronic (13) Vitamin D deficiency: Status: Acute (14) History of permanent cardiac pacemaker placement: (15) CHB (complete heart block): Subjective Subjective Interval history since last seen: Patient reports his abdomen continues to be uncomfortable. He is eager to learn if he is going down to [facility] today or not. He is passing flatus and having BMs. He denies any nausea or vomiting. Exam Const General: cooperative, healthy appearing and comfortable Orientation: alert and oriented x3 Resp Effort & Inspection: normal respiratory effort, no audible wheezes and no cough GI Inspection: normal to inspection Palpation: soft, no guarding and tender Objective Last Vital Signs Temp 36.5 C 06/27/21 07:29 Pulse 59 L 06/27/21 07:29 Resp 18 06/27/21 07:29 BP 137/77 06/27/21 07:29 Pulse Ox 93 06/27/21 07:29 Laboratory Results - last 24 hr 06/27/21 06/27/21 07:02 07:02 WBC 10.82 H RBC 2.86 L Hgb 9.5 L Hct 28.3 L MCV 99.0 H MCH 33.2 H MCHC 33.6 RDW 12.6 Plt Count 335 MPV 9.7 Immature Gran % 3.4 Neutrophils % 60.0 Lymphocytes % 17.3 Monocytes % 13.4 Eosinophils % 5.3 Basophils % 0.6 Nucleated RBC % 0.0 Absolute Neutrophils 6.49 Absolute Lymphocytes 1.87 Absolute Monocytes 1.45 H Absolute Eosinophils 0.57 Absolute Basophils 0.06 Sodium 131 L Potassium 3.6 Chloride 98 Carbon Dioxide 29.3 Anion Gap 3.7 BUN 10 Creatinine 0.5 L Estimated GFR/1.73 m2 >= 60.00 Glucose 99 Calcium 8.2 L Total Bilirubin 0.3 AST 30 ALT 53 Alkaline Phosphatase 92 Total Protein 6.7 Albumin 2.1 L PAWSS Have you Been Recently Intoxicated or Drunk Within the Last 30 days?: No Have you Ever Experienced Previous Episodes of Alcohol Withdrawal?: No Have you ever Experienced Withdrawal Seizures?: No Have you ever Experienced Delirium Tremens(DT)s?: No Have you ever undergone Alcohol Rehabilitation Treatment (i.e, inpt ot outpatient treatment programs)?: No Have you ever Experienced Blackouts?: No Have you ever Combined Alcohol with other Downers within the last 90 days?: No Have you ever Combined Alcohol with any other Substance of Abuse during the last 90 days?: No Positive Blood Alcohol level on Presentation? [PCS.BAL]: Unable to Obtain Evidence of Increased Autonomic Activity (i.e. HR>120, tremor, sweating, agitation, nausea)?: No Result: 0
--- NOTE | 2021-06-27 15:06 | CHAPLAIN ---
Tim was resting in bed when I visited. When I explained who I was, he said he didn't need to talk to me because he wasn't dying. I explained that I talk mostly to patients who aren't dying, but he was not interested in a conversation.
--- NOTE | 2021-06-27 15:33 | PT.INNT ---
Date of service: 06/27/21 Time of Service: 15:33 PT Notes Visit Reasons: Acute Cholecystitis 06/27/2021 Patient refused both morning and afternoon PT sessions, stating that he is in too much pain today. Will attempt to resume PT services tomorrow morning.
[2021-06-27] MEDS: Ketorolac 15 MG/ML VIAL IVP (17:47)
--- NOTE | 2021-06-27 18:41 | NUR.NOTE ---
Nursing Note: Ketorolac administered as the new scheduled pain medication. MS to be held for systolic bp less than 100
[2021-06-27] MEDS: Pantoprazole 40 MG VIAL IVP (19:42)
[2021-06-27] MEDS: traMADol 50 MG TAB PO (19:43)
[2021-06-28] MEDS: Ketorolac 15 MG/ML VIAL IVP ×3 (01:14→11:26)
[2021-06-28] MEDS: Normal Saline Flush 10 ML SYR IVP ×4 (01:15→11:27)
[2021-06-28] MEDS: PIPERACILLIN/TAZO 3.375 GM in Normal Saline 50 ML IVPB ×2 (01:16→09:14)
[2021-06-28 03:00] VITALS: BP 130/73; PULSE 60; RESP 21; TEMP 36.1; O2SAT 95
[2021-06-28 05:59] LABS: Abs Immature Grans 0.38 10^3/uL (0.0-0.06); Absolute Basophil Count 0.08 10^3/uL (0.0-0.2); Absolute Eosinophil Count 0.59 10^3/uL (0.0-0.7); Absolute Lymphocyte Count 2.12 10^3/uL (1.2-3.4); Absolute Monocyte Count 1.37 10^3/uL (0.1-0.8); Absolute Neutrophil Count 5.26 10^3/uL (1.2-6.7); Basophils % 0.8; HCT 27.5 % (40.0-50.0); HGB 9.1 g/dL (13.5-17.5); Immature Grans % 3.9; Lymphocytes % 21.6; MCH 33.3 pg (27.0-33.0); MCHC 33.1 % (32.0-36.0); MCV 100.7 fL (80-95); MPV 10.1 fL (8.0-11.0); Neutrophils % 53.7; Platelet Count 337 10^3/uL (130-400); RBC 2.73 10^6/uL (4.36-5.78); RDW 12.8 % (11.8-14.1); RDW-SD 46.7 fL
[2021-06-28 06:19] LABS: C-Reactive Protein 9.45 mg/dL (0.0-0.3)
[2021-06-28] MEDS: Tiotropium Bromide-Respimat 10 PUFF INH 2 PUFF IH (07:12)
[2021-06-28] MEDS: Budesonide/Formoterol 80/4.5 6.9 GM 60 PUFF INH IH (07:12)
[2021-06-28 07:26] VITALS: BP 158/92; PULSE 60; RESP 18; TEMP 36.6; O2SAT 94
--- NOTE | 2021-06-28 07:37 | PGE_ITS ---
Date of Service Date of service: 06/28/21 Time of Service: 07:37 Assessment and Plan Assessment and plan (1) Acute cholecystitis: Status: Acute Assessment and plan: S/p laparoscopic cholecystectomy 06/21/21 -Perioperative bile cx growing E.coli -Leukocytosis, resolved -Encourage patient to use incentive spirometer and get out of bed with assistance to the chair -tolerating regular diet -Toradol was added yesterday to help with pain management -Patient has been refusing to work with PT - (+) Abdominal tenderness RUQ and RLQ -(+) Liquid BMs Patient refuses to participate in physical therapy Patient refuses to do incentive spirometry Patient on even get up to toilet. Patient's white count is normal. His chest x-ray does not show any pneumonia. Patient is stable for discharge. He has Ultram/Tylenol/ibuprofen for pain Low-fat diet x1 month Follow-up appointment made see discharge orders Stable for discharge back to detention (2) History of empyema of pleura: Status: Chronic Assessment and plan: -Stable; unchanged respiratory status -Should be followed up on by pulmonology I did d/w pulm. this is old and prob scarring/plaque. Nothing free flowing to drain. does not require further f/u (3) COPD (chronic obstructive pulmonary disease): Status: Chronic (4) HTN (hypertension) with goal to be determined: Status: Chronic (5) Alcohol abuse: Status: Chronic Assessment and plan: -Currently has no symptoms of withdrawal (6) Presence of cardiac pacemaker: Status: Chronic Assessment and plan: -Secondary to complete heart block (7) Coronary artery disease: Status: Chronic (8) DVT prophylaxis: Status: Acute Assessment and plan: -Continue subcutaneous Lovenox (9) Discharge planning issues: Status: Acute Assessment and plan: -Will likely return to [facility] assisted living where he currently resides (10) Sacroiliitis: Status: Acute (11) DNR (do not resuscitate): Status: Acute (12) Obesity: Status: Chronic (13) Vitamin D deficiency: Status: Acute (14) History of permanent cardiac pacemaker placement: (15) CHB (complete heart block): Subjective Subjective Interval history since last seen: Patient reports that he feels his pain is poorly controlled, rating his pain at this time 6/10PL. He states he already received his pain medications this morning. Also of note patient states he is having difficulty sleeping. He say's he cannot seem to fall asleep. Denies any fevers, chills or night sweats. Exam Const General: cooperative, healthy appearing and comfortable Orientation: alert and oriented x3 Resp Effort & Inspection: normal respiratory effort, no audible wheezes and no cough GI Inspection: normal to inspection Palpation: soft, no guarding and tender Auscultation: normal bowel sounds Objective Last Vital Signs Temp 36.6 C 06/28/21 07:26 Pulse 60 06/28/21 07:26 Resp 18 06/28/21 07:26 BP 158/92 H 06/28/21 07:26 Pulse Ox 94 06/28/21 07:26 Laboratory Results - last 24 hr 06/28/21 06/28/21 05:25 05:25 WBC 9.80 RBC 2.73 L Hgb 9.1 L Hct 27.5 L MCV 100.7 H MCH 33.3 H MCHC 33.1 RDW 12.8 Plt Count 337 MPV 10.1 Immature Gran % 3.9 Neutrophils % 53.7 Lymphocytes % 21.6 Monocytes % 14.0 Eosinophils % 6.0 Basophils % 0.8 Nucleated RBC % 0.0 Absolute Neutrophils 5.26 Absolute Lymphocytes 2.12 Absolute Monocytes 1.37 H Absolute Eosinophils 0.59 Absolute Basophils 0.08 C-Reactive Protein 9.45 H PAWSS Have you Been Recently Intoxicated or Drunk Within the Last 30 days?: No Have you Ever Experienced Previous Episodes of Alcohol Withdrawal?: No Have you ever Experienced Withdrawal Seizures?: No Have you ever Experienced Delirium Tremens(DT)s?: No Have you ever undergone Alcohol Rehabilitation Treatment (i.e, inpt ot outpatient treatment programs)?: No Have you ever Experienced Blackouts?: No Have you ever Combined Alcohol with other Downers within the last 90 days?: No Have you ever Combined Alcohol with any other Substance of Abuse during the last 90 days?: No Positive Blood Alcohol level on Presentation? [PCS.BAL]: Unable to Obtain Evidence of Increased Autonomic Activity (i.e. HR>120, tremor, sweating, agitation, nausea)?: No Result: 0
--- NOTE | 2021-06-28 09:01 | DSE_ITS ---
DS: Diagnosis Discharge Diagnosis (1) Acute cholecystitis: Status: Acute (2) History of empyema of pleura: Status: Chronic (3) COPD (chronic obstructive pulmonary disease): Status: Chronic (4) HTN (hypertension) with goal to be determined: Status: Chronic (5) Alcohol abuse: Status: Chronic (6) Presence of cardiac pacemaker: Status: Chronic (7) Coronary artery disease: Status: Chronic (8) DVT prophylaxis: Status: Acute (9) Discharge planning issues: Status: Acute (10) Sacroiliitis: Status: Acute (11) DNR (do not resuscitate): Status: Acute (12) Obesity: Status: Chronic (13) Vitamin D deficiency: Status: Acute (14) History of permanent cardiac pacemaker placement: (15) CHB (complete heart block): Discharge Plan Disposition Patient Disposition: [facility] Condition: Stable Discharge Details Reason For Visit: Acute Cholecystitis Admit Date/Time: 06/20/21 17:19 Admit Provider: Virginia Price Attending Provider: Virginia Price Primary Care Provider: Unknown,Unknown Home Meds and New Rx's Prescriptions: New tramadol [Ultram] 50 mg tablet 50 mg PO Q6H PRNQty: 10 0RF tramadol 50 mg tablet 50 mg PO Q6H PRNQty: 10 0RF Continued albuterol sulfate 90 mcg/actuation aerosol powdr breath activated 2 inh inhalation Q4H PRN0RF Antacid (calcium carbonate) 215 mg calcium (500 mg) tablet,chewable 430 mg PO QID 0RF fluticasone propionate 50 mcg/actuation spray,suspension 1 spray intranasal BID 0RF Rx Instructions: administer into each nostril sertraline 25 mg tablet 25 mg PO DAILY 0RF Ultra B-100 Complex Tablet Extended Release 1 tab PO DAILY 0RF calcium citrate-vitamin D3 [Calcium Citrate + D] 315 mg-5 mcg (200 unit) tablet 1 tab PO DAILY 0RF lisinopril 10 mg tablet 10 mg PO DAILY 0RF pantoprazole 40 mg tablet,delayed release (DR/EC) 40 mg PO DAILY 0RF polyethylene glycol 3350 [Miralax] 17 gram powder in packet 17 g PO DAILY 0RF ibuprofen 600 mg tablet 600 mg PO BID PRN0RF Rx Instructions: with meals magnesium oxide 400 mg magnesium capsule 400 mg PO BID 0RF sennosides-docusate sodium [Senexon-S] 8.6-50 mg tablet 1 tab-cap PO BID 0RF acetaminophen [Tylenol Extra Strength] 500 mg tablet 1,000 mg PO TID 0RF metoprolol succinate 200 mg tablet extended release 24 hr 200 mg PO DAILY 0RF Trelegy Ellipta 200-62.5-25 mcg blister with device 1 inh inhalation DAILY 0RF spironolactone 25 mg tablet 25 mg PO BID 0RF ergocalciferol (vitamin D2) [Vitamin D2] 1,250 mcg (50,000 unit) capsule 1,250 mcg PO QWEEK 0RF melatonin 3 mg capsule 3 mg PO HS 0RF benzonatate 200 mg capsule 200 mg PO TID PRN0RF Discharge Instructions Additional Instructions: Care after Gallbladder Surgery ? ? -Pain control: ?For the first 72 hours after surgery, take you pain meds continuously and not just when you have pain.?? Alternate Tylenol 1000mg by mouth every 8 hours, and Ibuprofen 600mg every 6 hours.? Make sure you take ibuprofen with food and not on an empty stomach.? ??Use the tramadol for breakthrough pain- pain that is greater than a 7. ?- Use ICE! Ice really helps to keep the swelling down, and swelling causes pain. ??Twenty minutes on, and then off, use the Tylenol, ibuprofen , and ice, ?when you have pain.?? If you are taking narcotic pain medication, follow the instructions on the label and do not drive. Pain medications can make you very constipated. Make sure you are moving your bowels daily. If not, take Miralax, milk of magnesia or magnesium citrate.? -Use an ice bag This helps to decrease swelling, which causes pain. It is normal to be more sore/painful and swollen towards the end of the day and first thing in the morning. - Use milk of magnesia or prune juice to prevent constipation (this is a particular side effect of pain medication and anesthesia). Do not allow yourself to become constipated. ?? Avoid fatty or greasy foods; introduce these slowly, with care, after about 1 month. *pork/diary/nuts&nuts butters/avocados ?High-fat foods include: ? Foods that are fried, like Czech fries and potato chips ? High-fat meats, such as irving, bologna, sausage, ground beef, and ribs, pork products ? High-fat dairy products, such as cheese, ice cream, cream, whole milk, and sour cream ? Pizza ? Foods made with lard or butter ? Creamy soups or sauces ? Meat gravies ? Chocolate ? Oils, such as palm and coconut oil ? Skin of chicken or turkey ? Nuts and nut butters ? Avacadoes ? -No further antibiotics required - You will notice purple discoloration around the incisions.? This is the ?skin glue?.? This will wear off on its own.? It is OK to shower after 24hrs.? You do not need to cover the incisions. -You should walk frequently, gradually, increasing the distance. You may climb stairs, just go slowly. -Continue incentive spirometry 10 times an hour while awake ? There are no stitches to remove. -Physical therapy twice a day ? Do no lift anything over 5 lbs. for two weeks. ? ? You should return to Dr. Price?s office for a post-op appointment about two weeks after surgery. A follow-up should have been scheduled for you already.? If there is not, please call the [facility] at: [phone] to schedule an appointment. July 09 10am ? My Medications for pain and nausea are: Tylenol/ibuprofen ?and ultram- for severe pain ? ? ? When to Call the Office: ? If the incision becomes red or swollen, or there is more than a little drainage from it. ? If you develop a temperature higher than 100.5 F. ? If your eyes turn yellow ? Vomiting and can?t keep fluids down ? Activity:: Physical therapy twice a Equipment/Supplies:: No Equipment Needed Diet:: low fat diet x1 month DS: Summary Time Spent with Patient providing and/or coordinating discharge services: Less than 30 minutes Status at Discharge Functional status at discharge: wheelchair bound Overall status at discharge: patient is back to baseline Mental Status: mental status grossly normal Speech and Movement: speech and movement normal Mood: angry and irritable mood Affect: irritable affect Exam Psych Mental Status: mental status grossly normal Speech and Movement: speech and movement normal Mood: angry and irritable mood Affect: irritable affect DS: Data Vitals/I&O Vitals and I&O: Vital Signs Temperature 36.6 C 06/28/21 07:26 Temperature Source Temporal Artery Scan 06/28/21 07:26 Pulse 60 06/28/21 07:26 Pulse Rhythm Regular 06/28/21 02:12 Pulse 83 06/23/21 14:11 Respiratory Rate 18 06/28/21 07:26 Respiratory Effort 06/28/21 02:12 Respiratory Depth Shallow 06/28/21 02:12 Respiratory Pattern Normal 06/28/21 02:12 Blood Pressure 158/92 H 06/28/21 07:26 Blood Pressure Mean 80 06/23/21 14:11 Blood Pressure Position Sitting 06/22/21 17:30 Pulse Oximetry 94 06/28/21 07:26 Oxygen Delivery Method Room Air 06/28/21 07:26 Oxygen Flow Rate 0 06/28/21 07:26 Pain Level 6 06/28/21 07:26 Comment 06/27/21 12:07 Arterial Systolic 132 06/22/21 10:30 Arterial Diastolic 68 06/22/21 10:30 Arterial Mean 91 06/22/21 10:30 Intake & Output 06/27/21 06/27/21 06/28/21 11:59 23:59 11:59 Intake Total 100 / 1105.5 1005.5 / 1105.5 50 / 50 Output Total 1150 / 1500 350 / 1500 100 / 100 Balance -1050 / -394.5 655.5 / -394.5 -50 / -50 Weight 95.1 kg 98.1 kg Intake: IV 100 / 605.5 505.5 / 605.5 50 / 50 Oral 500 / 500 Output: Urine 1150 / 1500 350 / 1500 100 / 100 Other: Urine Color Yellow Yellow Yellow Light Eri Urine Appearance Clear Clear Cloudy Urine Odor None None Strong Stool Size Moderate Stool Characteristics Soft Voiding Methods Urinal Urinal Urinal Data Completed and Pending Labs on day of discharge: Labs from last 24 hours 06/28/21 06/28/21 05:25 05:25 WBC 9.80 RBC 2.73 L Hgb 9.1 L Hct 27.5 L MCV 100.7 H MCH 33.3 H MCHC 33.1 RDW 12.8 Plt Count 337 MPV 10.1 Immature Gran % 3.9 Neutrophils % 53.7 Lymphocytes % 21.6 Monocytes % 14.0 Eosinophils % 6.0 Basophils % 0.8 Nucleated RBC % 0.0 Absolute Neutrophils 5.26 Absolute Lymphocytes 2.12 Absolute Monocytes 1.37 H Absolute Eosinophils 0.59 Absolute Basophils 0.08 C-Reactive Protein 9.45 H Preliminary micro results at discharge 06/21/21 11:58 Anaerobic Culture - Preliminary Gallbladder - Bile 06/21/21 11:58 Body Fluid Culture - Preliminary Bile Escherichia coli PFSH All Active Problems (Updated 06/23/21 @ 11:13 by Jessi Cantu MD) Hypomagnesemia (Acute) Hypokalemia (Acute) Discharge planning issues (Acute) DVT prophylaxis (Acute) Acute cholecystitis (Acute) Sacroiliitis (Acute) 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 Most likely this is inflammatory tissue and not actually fluid. pt has had multiple taps. He was on a prolonged course of IV abx and has failed to resolve. This is a sequelae of this pericardial tamponade following disruption of his RA lead from pacemaker insertion. COPD (chronic obstructive pulmonary disease) (Chronic) Depression (Chronic) Lymphedema (Acute) HTN (hypertension) with goal to be determined (Chronic) Obesity (Chronic) DNR (do not resuscitate) (Acute) Alcohol abuse (Chronic) pt lives at [facility] and is allowed x2 beers a day Presence of cardiac pacemaker (Chronic) [employer] PPM MRI model L111 Serial # [id number] placed dual chamber 04/30/2017 for CHB at [facility]. Complications included pericardial effusion with tamponade and need for reposition R atrial lead 05/16/20 Coronary artery disease (Chronic) Rhinophyma (Acute) Hyponatremia, hypo-osmolarity, or hypo-osmolar hyponatremia (Acute) Vitamin D deficiency (Acute) Medical History CHB (complete heart block) had permanent pacemaker implanted 2017 for this Surgical History History of permanent cardiac pacemaker placement with subsequent repositioning Social History Smoking/Tobacco Use Status: Never Smoking risk assessment performed?: Yes Alcohol Intake: current Alcohol Intake frequency: 0-2 drinks per day Alcohol type: beer Housing: assisted living facility Pets and animals: No Do you feel safe at home: Yes Do you feel safe in your relationship?: Yes
[2021-06-28] MEDS: Sertraline 25 MG TAB PO (09:12)
[2021-06-28] MEDS: Tamsulosin 0.4 MG CAPCR PO (09:12)
[2021-06-28] MEDS: Metoprolol CR 100 MG TABCR 200 MG PO (09:12)
[2021-06-28] MEDS: Thiamine 100 MG TAB PO (09:12)
[2021-06-28] MEDS: Polyethylene Glycol 3350 17 GM PACKET PO (09:12)
[2021-06-28] MEDS: Protein Nutritional Supplement 16 GM 1 OUNCE PACKET PO (09:12)
--- NOTE | 2021-06-28 10:21 | CMDISCH_ITS ---
- If Service Date Differs Date of service: 06/28/21 Time of Service: 10:21 LACE Index Scoring Tool - Questions: Length of Stay (in days): 7 - 13 Acuity (Admit via E.D.?): Yes Comorbidities: Chronic Pulmonary Disease E.D. Visits: 1 - Answers: Total Score: 11 Risk of Readmission: High Risk Care Management Discharge Reason for Hospitalization: Acute cholecystitis. Discharge Plan: Tim will return to [facility] before [facility]. [facility] will [facility] up with [facility], Palliative Care, and his discharge plan of care as instructed and transport with [facility]. cc: Patient/Family Education Needs: Review of discharge instructions, limitations, medications, and follow up plan of care; discuss Ask Me Thre
[2021-06-28 11:20] VITALS: BP 151/83; PULSE 62; RESP 16; TEMP 36.7; O2SAT 94
--- NOTE | 2021-06-28 17:00 | INDS_ITS ---
Date of service: 06/28/21 PT Notes Visit Reasons: Acute Cholecystitis Physical Therapy Inpatient Discharge Summary Date:?June 28, 2021 Dates of Service: 06/23/2021 through 06/27/2021 This is a clinical summary of care provided for the duration of dates listed above. No charge was made in the completion of this documentation. Referring Doctor:John Price PT Orders: PT CONSULT: Precautions: Standard, Falls Patient Profile/Admitting Diagnosis:??Tim is a 70 year old male who is a resident [facility].? For several months he has been experiencing right upper quadrant pain and diarrhea after he eats.? Referred for PT consult s/p diagnosis with acute cholecystitis.? PMHX: Active Problems Acute cholecystitis (Acute) Sacroiliitis (Acute) History of empyema of pleura (Acute) COPD (chronic obstructive pulmonary disease) (Chronic) Depression (Chronic) Lymphedema (Acute) HTN (hypertension) with goal to be determined (Acute) Obesity (Chronic) DNR (do not resuscitate) (Acute) Alcohol abuse (Chronic) Presence of cardiac pacemaker (Acute) [employer] PPM MRI model L111 Serial # [id number] placed dual chamber 04/30/2017 for CHB at [facility]. Complications included pericardial effusion with tamponade? and need for? reposition R atrial lead 05/16/20 Coronary artery disease (Chronic) Rhinophyma (Acute) Loculated pleural effusion (Acute) Hyponatremia, hypo-osmolarity, or hypo-osmolar hyponatremia (Acute) Vitamin D deficiency (Acute) COVID-19 (Acute) Medical History CHB (complete heart block) had permanent pacemaker implanted 2017 for this Surgical History History of permanent cardiac pacemaker placement with subsequent repositioning Social History/Home Situation: Tim is a resident of the [facility]. Has been staying there since this past summer. Notes that he utilizes a wheelchair to get around. Able to stand pivot transfer. Current Functional Limitations: Limited ability with transfers, bed mobility, and continued gas pains. Equipment Owned/DME: wheelchair Subjective: NT. See most recent [employer] notes. Objective:? General Observation: NT. See most recent [employer] notes. Mental Status: NT. See most recent [employer] notes. ROM: Right Upper Extremity: R shoulder flexion limited to 90 degrees, ER 25 degrees. Demonstrates WFL elbow, wrist and hand mobility Left Upper Extremity: L shoulder flexion limited to 120 degrees, ER 35 degrees. Demonstrates WFL elbow,wrist and hand mobility Right Lower Extremity: hip flexion 90 degrees, knee flexion 100 degrees, lacking 25 degrees of TKE, DF neutral Left Lower Extremity: hip flexion 90 degrees, knee flexion 100 degrees, lacking 30 degrees of TKE, DF neutral Strength: Right Upper Extremity: shoulder flexion 3/5, abduction 3/5, elbow flexion 4/5, elbow extension 4/5, good functional grasp Left Upper Extremity: shoulder flexion 3+/5, abduction 3+/5, elbow flexion 4/5, elbow extension 4/5, good functional grasp Right Lower Extremity: hip flexion 3+/5, knee extension 4-/5, knee flexion 4-/5, DF 3+/5 Left Lower Extremity: hip flexion 3+/5, knee extension 4/5, knee flexion 4/5, DF 4-/5 Sensation:?Intact to light touch. Bed Mobility/Transfers: Commode-chair: Independent Sit-Stand: Independent Stand-sit: Independent Gait:? 8 feet + 10 feet using FWW with FWB requiring SBA. Balance:? Static Sitting: Normal Dynamic Sitting: Good Static Standing: Fair Dynamic Standing: Fair Assessment:??Patient is a 70 year old male referred to physical therapy services with the diagnosis of acute cholecyctitis. Patient presents with clinical signs and symptoms consistent with current/admi tting diagnoses that have resulted to mobility limitations, gait instability, generalized weakness, and impairment of motor control as demonstrated by the following impairment level findings: 1.? Decreased strength to B UE/LE major muscle groups 2.? Impaired standing balance 3.? Impaired activity tolerance Impairments are contributing to the following functional limitations: 1. Increased dependence with transfers 2.? Increase completion time for mobility ADL performance 3.? Increased fall risk 4.? Decreased tolerance for ambulation without use of assistive device? Patient is assessed as a? Moderate 36472 ? complexity based on the following: History: As above Examination: As above Presentation: Evolving Decision Making: Moderate Goals: Goals X1 week 1. Supine-Sit SBA MET 2. Sit-Supine Independent MET 3. Sit-Stand Supervision NOT MET 4. Stand-Sit Supervision NOT MET 5. Bed-Chair Supervision with FWW NOT MET 6. Chair-Bed Supervision with FWW NOT MET DISCHARGE RECOMMENDATIONS: Patient to return to [facility] once medically cleared TREATMENT CODE/TIME: COBY Thank you for the opportunity to participate in the care of this patient. Palmira Malloy PT, DPT, CLT [facility] [place], [place]
== END 2021-06-28 11:49 | disposition intermediate care facility (04) | DRG 418 ==
LOC: ER 18:09 → MS 20:39 → ICU 06-21 13:00 → MS 06-21 13:10 → ICU 06-21 13:19 → MS 06-23 14:55
PROVIDERS: Emergency Medicine; Internal Medicine; Surgery; Admitting Provider Surgery; Emergency Provider Physician Assistant; Visit Provider Surgery
PROC: 0FT44ZZ Resection of Gallbladder, Percutaneous Endoscopic Approach (ICD-10-PCS; CPT 47562; principal; 2021-06-21 10:30)
DX: K81.2 Acute cholecystitis with chronic cholecystitis (principal); E87.1 Hypo-osmolality and hyponatremia; I44.2 Atrioventricular block, complete; J44.9 Chronic obstructive pulmonary disease, unspecified; I10 Essential (primary) hypertension; F32.9 Major depressive disorder, single episode, unspecified; F10.10 Alcohol abuse, uncomplicated; E66.9 Obesity, unspecified; J92.9 Pleural plaque without asbestos; M46.1 Sacroiliitis, not elsewhere classified; I25.2 Old myocardial infarction; Z95.5 Presence of coronary angioplasty implant and graft; Z66 Do not resuscitate; I89.0 Lymphedema, not elsewhere classified; E55.9 Vitamin D deficiency, unspecified; I25.10 Atherosclerotic heart disease of native coronary artery without angina pectoris; Z95.0 Presence of cardiac pacemaker; L71.1 Rhinophyma; E83.42 Hypomagnesemia; B96.20 Unspecified Escherichia coli [E. coli] as the cause of diseases classified elsewhere; Z68.29 Body mass index [BMI] 29.0-29.9, adult; E87.6 Hypokalemia
CPT/HCPCS: 47562; 36415; 80048; 80053; 80076; 83690; 83935; 86850; 86900; 86901; 87040; 87077; 87635; 94640; 96361; 96365; 97110; 97162; 97530; 99223; 99285; 71045; 71046; 74177; 76705; 80320; 81003; 81015; 82247; 82248; 83735; 83880; 84300; 84443; 85025; 85610; 85730; 86140; 87070; 87075; 87186; 87205; 88304; 93005; 93010; 99232; 99233; J0131; J0295; J0780; J1100; J1650; J1756; J1885; J2001; J2250; J2270; J2405; J2543; J2597; J3010; J3490; J7042; J7060

== ENCOUNTER 2021-07-03 19:10 | Outpatient (REF) | payer MEDICARE, MEDICAID, SELFPAY ==
[2021-07-03 13:45] LABS: Abs Immature Grans 0.09 10^3/uL (0.0-0.06); Absolute Basophil Count 0.09 10^3/uL (0.0-0.2); Absolute Neutrophil Count 9.15 10^3/uL (1.2-6.7); Basophils % 0.7; Eosinophils % 2.1; HCT 34.8 % (40.0-50.0); HGB 11.6 g/dL (13.5-17.5); Immature Grans % 0.7; Lymphocytes % 14.4; MCH 33.3 pg (27.0-33.0); MCHC 33.3 % (32.0-36.0); MCV 100 fL (80-95); Monocytes % 9.5; Neutrophils % 72.6; Platelet Count 420 10^3/uL (130-400); RBC 3.48 10^6/uL (4.36-5.78); RDW 12.9 % (11.8-14.1); RDW-SD 47.2 fL; WBC 12.61 10^3/uL (4.4-10.8)
[2021-07-03 13:49] LABS: Absolute Eosinophil Count 0.26 10^3/uL (0.0-0.7); Absolute Lymphocyte Count 1.82 10^3/uL (1.2-3.4)
[2021-07-03 14:09] LABS: Iron 81 ug/dL (65-175)
[2021-07-03 14:47] LABS: ALT 31 U/L (16-63); AST 20 U/L (15-37); Albumin 3.1 g/dL (3.4-5.0); Alkaline Phosphatase 101 U/L (46-116); Anion Gap 8.3 mmol/L (3-11); BUN 14 mg/dL (7-18); Bilirubin, Total 0.3 mg/dL (0.2-1.0); CO2 26.7 mmol/L (21.0-32.0); CREATININE 0.7 mg/dL (0.70-1.30); Calcium 8.9 mg/dL (8.5-10.1); Calculated LDL 133 mg/dL (<100); Chloride 96 mmol/L (98-107); Cholesterol 191 mg/dL (<200); Folate 15.8 ng/mL (8.6-20.0); Glucose 95 mg/dL (74-106); HDL Cholesterol 40 mg/dL (40-60); Magnesium 1.7 mg/dL (1.8-2.4); Potassium 4.5 mmol/L (3.5-5.1); Sodium 131 mmol/L (136-145); TSH (W/Ref FT4) 2.34 uIU/mL (0.36-3.74); Total Protein 7.6 g/dL (6.4-8.2); Triglyceride 94 mg/dL (<150); Vitamin B12 812 pg/mL (193-986)
[2021-07-03 14:54] LABS: Ferritin 1418 ng/mL (26-388)
[2021-07-05 02:07] LABS: Vitamin D 25 Total 20.4 ng/mL (30-100)
== END 2021-07-03 19:11 | disposition home or self-care (01) ==
LOC: LBN 19:10
PROVIDERS: Visit Provider Nurse Practitioner Gerontology
DX: R68.89 Other general symptoms and signs (principal); E11.22 Type 2 diabetes mellitus with diabetic chronic kidney disease; N18.9 Chronic kidney disease, unspecified
CPT/HCPCS: 80053; 80061; 82306; 82607; 82728; 82746; 83036; 83540; 83735; 84443; 85025

== ENCOUNTER 2021-07-06 16:26 | Outpatient (REF) | payer MEDICARE, MEDICAID, SELFPAY ==
[2021-07-06 17:00] LABS: Absolute Basophil Count 0.08 10^3/uL (0.0-0.2); Absolute Eosinophil Count 0.11 10^3/uL (0.0-0.7); Absolute Lymphocyte Count 1.58 10^3/uL (1.2-3.4); Absolute Monocyte Count 1.74 10^3/uL (0.1-0.8); Absolute Neutrophil Count 12.51 10^3/uL (1.2-6.7); Basophils % 0.5; Eosinophils % 0.7; HCT 32.5 % (40.0-50.0); HGB 10.9 g/dL (13.5-17.5); Immature Grans % 0.6; Lymphocytes % 9.8; MCH 33.9 pg (27.0-33.0); MCHC 33.5 % (32.0-36.0); MCV 101 fL (80-95); MPV 11.2 fL (8.0-11.0); Monocytes % 10.8; Neutrophils % 77.6; Platelet Count 371 10^3/uL (130-400); RBC 3.22 10^6/uL (4.36-5.78); RDW 13.2 % (11.8-14.1); RDW-SD 48.9 fL; WBC 16.12 10^3/uL (4.4-10.8)
[2021-07-06 17:04] LABS: Anion Gap 8.2 mmol/L (3-11); BUN 13 mg/dL (7-18); CO2 27.8 mmol/L (21.0-32.0); CREATININE 0.8 mg/dL (0.70-1.30); Calcium 8.7 mg/dL (8.5-10.1); Chloride 96 mmol/L (98-107); Glucose 105 mg/dL (74-106); Potassium 4.4 mmol/L (3.5-5.1); Sodium 132 mmol/L (136-145)
[2021-07-06 19:05] LABS: Diff Comment Agrees w/ Instrument; Macrocytosis 1+
== END 2021-07-06 16:27 | disposition home or self-care (01) ==
LOC: LBN 16:26
PROVIDERS: Visit Provider Nurse Practitioner Gerontology
DX: E11.22 Type 2 diabetes mellitus with diabetic chronic kidney disease (principal); R68.89 Other general symptoms and signs
CPT/HCPCS: 80048; 85025

== ENCOUNTER → 2021-07-09 13:42 | Outpatient (CLI) | payer MEDICARE, MEDICAID, SELFPAY ==
--- NOTE | 2021-07-09 10:16 | DI.CT_ITS ---
Exam(s) CT CHEST/ABD/PEL WO EXAM: CT CHEST/ABD/PEL WO CLINICAL HISTORY: s/p lap bonnie rising wbc. Surgicel in GB fossa. TECHNIQUE: Imaging Protocol: Axial computed tomography images with coronal and sagittal reformatted images were created and reviewed CONTRAST MATERIAL: Intravenous: Omnipaque 350 Contrast volume:No IV contrast given due to [employer] shortage. Oral: yes COMPARISON: CT CT ABDOMEN PELVIS W from 06/20/2021 CR XR CHEST 2V PA LATERAL from 06/21/2021 CR XR PORTABLE CHEST AP from 06/26/[address] ABDOMEN PELVIS W from 06/26/2021 FINDINGS: CHEST: Tracheobronchial tree: Patent where visualized. Mediastinum and Taylor: No dominant adenopathy or fluid collection. Pulmonary parenchyma: No consolidation or dominant measurable mass. Pleura: No change in right-sided pleural calcification. No change in loculated pleural collection an d adjacent atelectatic lung. No pneumothorax. Lymph nodes: Within normal limits. Aorta: Thoracic portion non-dilated. Mild atherosclerotic changes. Heart: Mildly enlarged. Pacemaker. Coronary artery calcifications and mitral annular calcifications . Bones: Stable minimal compression of the of T1, T3 and T6. Degenerative changes greater in the lower thoracic region. No lytic or blastic lesions. ABDOMEN: Exam is somewhat limited by respiratory motion. Liver: Normal density. No measurable mass. Gallbladder and biliary tract: Status post cholecystectomy. Surgical clips in gallbladder fossa. No biliary dilatation. Increased size of fluid collection in gallbladder fossa, measuring 7.2 x 5.6 by 5.6 cm. The previously noted drainage catheter is no longer present. Small amount of air within th e collection. Pancreas: Normal density, no abnormal calcifications or inflammatory process. Spleen: Normal. Kidneys: Normal size, contour and axis. No radiodense stones or obstructive uropathy. No masses seen. Adrenal glands: No masses seen. Aorta: Abdominal portion non-dilated. Lymph nodes: Within normal limits. Soft tissues: Stable collections in the subcutaneous fat of the right lateral upper pelvis.. Diffuse muscular atrophy noted. PELVIS: Bladder: Nearly empty. Stable appearance wall thickening.. Bowel: Diverticulosis lower descending and sigmoid. No diverticulitis. Small bowel unremarkable. A ppendix is normal. No obstruction or bowel wall thickening. Peritoneal cavity: Small fluid collection in the lower pelvis no longer present. Bones: Stable size fluid collection, partially calcified in the soft tissues posterior to the sacrum and left ilium. Erosion of the posterior cortex of the left ilium appears stable. Stable minimal co mpression of L1. Degenerative changes and scoliosis.. Reproductive organs: Within normal limits. IMPRESSION: Interval increase in size in previously noted abscess in the gallbladder fossa. Stable loculated left pleural collection. Stable collection subcutaneous fat posterior pelvis is adj acent erosion of the left ilium. Stable subcutaneous collections at the lateral right pelvis. RADIATION DOSE DELIVERED: 1,661.88mGy.cm Total DLP DATA REPOSITORY: All CT scans at this facility are submitted to the National Radiology Data Registry (NRDR) Dose Index Registry (DIR) with the [employer] (ACR). RADIATION OPTIMIZATION: All CT scans at this facility use at least one of these dose optimization te chniques: automated exposure control; mA and/or kV adjustment per patient size (includes targeted exa ms where dose is matched to clinical indication); or iterative reconstruction.
--- NOTE | 2021-07-09 13:26 | W.PM.HP.N ---
Assessment and Plan Assessment and plan (1) Other elevated white blood cell count: Status: Acute (2) Abscess: Status: Acute Assessment and plan: Patient will be admitted to the hospital. We will start antibiotics. Hopefully can go for IR drain placement tomorrow at [facility] [place]. (3) COPD (chronic obstructive pulmonary disease): Status: Chronic (4) HTN (hypertension) with goal to be determined: Status: Chronic (5) Coronary artery disease: Status: Chronic (6) S/P laparoscopic cholecystectomy: Status: Acute History of Present Illness Narrative: Patient was seen today in the clinic in follow-up. He denies any nausea and vomiting. He denies any fever or chills. He has minimal pain. He is not having any diarrhea. His incisions are clean dry and intact. Labs were done and he was found to have a 16,[address] was read and this shows an abscess. Patient is being admitted for IV antibiotics and will go to [facility] and have a CT-guided drain placed, hopefully on Friday. 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 Most likely this is inflammatory tissue and not actually fluid. pt has had multiple taps. He was on a prolonged course of IV abx and has failed to resolve. This is a sequelae of this pericardial tamponade following disruption of his RA lead from pacemaker insertion. COPD (chronic obstructive pulmonary disease) (Chronic) Depression (Chronic) Lymphedema (Acute) HTN (hypertension) with goal to be determined (Chronic) Obesity (Chronic) DNR (do not resuscitate) (Acute) Presence of cardiac pacemaker (Chronic) Ulmon Essentio PPM MRI model L111 Serial # [id number] placed dual chamber 04/30/2017 for CHB at [facility]. Complications included pericardial effusion with tamponade and need for reposition R atrial lead 05/16/20 Coronary artery disease (Chronic) Rhinophyma (Acute) Hyponatremia, hypo-osmolarity, or hypo-osmolar hyponatremia (Acute) Vitamin D deficiency (Acute) Medical History CHB (complete heart block) had permanent pacemaker implanted 2018 for this Surgical History History of permanent cardiac pacemaker placement with subsequent repositioning Social History Smoking/Tobacco Use Status: Never Smoking risk assessment performed?: Yes Alcohol Intake: current Alcohol Intake frequency: 0-2 drinks per day Alcohol type: beer Housing: assisted living facility Pets and animals: No Do you feel safe at home: Yes Do you feel safe in your relationship?: Yes Meds Allergies and Home Medications Allergies Allergy/AdvReac Type Severity Reaction Status Date / Time No Known Allergies Allergy Verified 07/09/21 13:28 Home Medications Medication Instructions Recorded Confirmed Type acetaminophen 500 mg tablet 1,000 mg PO TID tab 03/29/21 06/20/21 History (Tylenol Extra Strength) albuterol sulfate 90 mcg/actuation 2 inh INHALATION Q4H PRN 03/29/21 06/20/21 History breath activated powder inhaler calcium carbonate 215 mg calcium 430 mg PO QID tab 03/29/21 06/20/21 History (500 mg) chewable tablet (Antacid (calcium carbonate)) calcium citrate 315 mg-vitamin D3 1 tab PO DAILY 03/29/21 06/20/21 History 5 mcg (200 unit) tablet (Calcium Citrate + D) fluticasone propionate 50 1 spray INTRANASAL BID 03/29/21 06/20/21 History mcg/actuation nasal spray,suspension lisinopril 10 mg tablet 10 mg PO DAILY 03/29/21 06/20/21 History magnesium oxide 400 mg PO BID 03/29/21 06/20/21 History pantoprazole 40 mg tablet,delayed 40 mg PO DAILY 03/29/21 06/20/21 History release polyethylene glycol 3350 17 gram 17 g PO DAILY 03/29/21 06/20/21 History oral powder packet (Miralax) sennosides 8.6 mg-docusate sodium 1 tab-cap PO BID tab 03/29/21 06/20/21 History 50 mg tablet (Senexon-S) sertraline 25 mg tablet 25 mg PO DAILY 03/29/21 06/20/21 History vitamin B complex (Ultra B-100 1 tab PO DAILY 03/29/21 06/20/21 History Complex) fluticasone fur. 200 mcg-umeclid 1 inh INHALATION DAILY 05/02/21 06/20/21 History 62.5 mcg-vilant 25 mcg inhalat.powder (Trelegy Ellipta) metoprolol succinate 200 mg 200 mg PO DAILY 05/02/21 06/20/21 History tablet,extended release 24 hr spironolactone 25 mg tablet 25 mg PO BID 05/02/21 06/20/21 History ergocalciferol (vitamin D2) 1,250 1,250 mcg PO QWEEK 05/10/21 05/10/21 History mcg (50,000 unit) capsule (Vitamin D2) melatonin 3 mg capsule 3 mg PO HS 05/10/21 06/20/21 History tramadol 50 mg tablet 50 mg PO Q6H PRN #10 tab 06/28/21 Rx amoxicillin 875 mg-potassium 1 tab PO BID 07/09/21 History clavulanate 125 mg tablet
== END ==
PROVIDERS: Visit Provider Surgery
DX: K81.0 Acute cholecystitis (principal); D72.828 Other elevated white blood cell count; J44.9 Chronic obstructive pulmonary disease, unspecified; I10 Essential (primary) hypertension; I25.10 Atherosclerotic heart disease of native coronary artery without angina pectoris; Z90.49 Acquired absence of other specified parts of digestive tract
CPT/HCPCS: 71250; 74176

== ENCOUNTER 2021-07-09 14:15 | Inpatient (IN) | payer MEDICARE, MEDICAID, SELFPAY ==
--- NOTE | 2021-07-09 14:22 | HPE_ITS ---
Assessment and Plan Assessment and plan (1) S/P laparoscopic cholecystectomy: Status: Acute Assessment and plan: Patient will be admitted to the hospital.? We will start antibiotics.? Hopefully can go for IR drain placement tomorrow at [facility] [place]. (2) Abscess: Status: Acute (3) Other elevated white blood cell count: Status: Acute History of Present Illness Narrative: Assessment and Plan Assessment and plan (1) Other elevated white blood cell count: ?Status:?Acute (2) Abscess: ?Status:?Acute ? ? ? Assessment and plan: Patient will be admitted to the hospital.? We will start antibiotics.? Hopefully can go for IR drain placement tomorrow at [facility] [place]. (3) COPD (chronic obstructive pulmonary disease): ?Status:?Chronic (4) HTN (hypertension) with goal to be determined: ?Status:?Chronic (5) Coronary artery disease: ?Status:?Chronic (6) S/P laparoscopic cholecystectomy: ?Status:?Acute History of Present Illness Narrative: Patient was seen today in the clinic in follow-up.? He denies any nausea and vomiting.? He denies any fever or chills.? He has minimal pain.? He is not having any diarrhea.? His incisions are clean dry and intact.? Labs were done and he was found to have a 16,000 white count.? He was started on Oct A CT was read and this shows an abscess.? Patient is being admitted for IV antibiotics and will go to [facility] and have a CT-guided drain placed, hopefully on Friday. 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 Most likely this is inflammatory tissue and not actually fluid. pt has had multiple taps. He was on a prolonged course of IV abx and has failed to resolve. This is a sequelae of this pericardial tamponade following disruption of his RA lead from pacemaker insertion. COPD (chronic obstructive pulmonary disease) (Chronic) Depression (Chronic) Lymphedema (Acute) HTN (hypertension) with goal to be determined (Chronic) Obesity (Chronic) DNR (do not resuscitate) (Acute) Presence of cardiac pacemaker (Chronic) Vibby Essentio PPM MRI model L111 Serial # [id number] placed dual chamber 04/30/2017 for CHB at [facility]. Complications included pericardial effusion with tamponade and need for reposition R atrial lead 05/16/20 Coronary artery disease (Chronic) Rhinophyma (Acute) Hyponatremia, hypo-osmolarity, or hypo-osmolar hyponatremia (Acute) Vitamin D deficiency (Acute) Medical History CHB (complete heart block) had permanent pacemaker implanted 2017 for this Surgical History History of permanent cardiac pacemaker placement with subsequent repositioning Social History Smoking/Tobacco Use Status: Never Smoking risk assessment performed?: Yes Alcohol Intake: current Alcohol Intake frequency: 0-2 drinks per day Alcohol type: beer Housing: assisted living facility Pets and animals: No Do you feel safe at home: Yes Do you feel safe in your relationship?: Yes Meds Allergies and Home Medications Allergies Allergy/AdvReac Type Severity Reaction Status Date / Time No Known Allergies Allergy Verified 07/09/21 13:28 Home Medications Medication Instructions Recorded Confirmed Type acetaminophen 500 mg tablet 1,000 mg PO TID tab 03/29/21 06/20/21 History (Tylenol Extra Strength) albuterol sulfate 90 mcg/actuation 2 inh INHALATION Q4H PRN 03/29/21 06/20/21 History breath activated powder inhaler calcium carbonate 215 mg calcium 430 mg PO QID tab 03/29/21 06/20/21 History (500 mg) chewable tablet (Antacid (calcium carbonate)) calcium citrate 315 mg-vitamin D3 1 tab PO DAILY 03/29/21 06/20/21 History 5 mcg (200 unit) tablet (Calcium Citrate + D) fluticasone propionate 50 1 spray INTRANASAL BID 03/29/21 06/20/21 History mcg/actuation nasal spray,suspension lisinopril 10 mg tablet 10 mg PO DAILY 03/29/21 06/20/21 History magnesium oxide 400 mg PO BID 03/29/21 06/20/21 History pantoprazole 40 mg tablet,delayed 40 mg PO DAILY 03/29/21 06/20/21 History release polyethylene glycol 3350 17 gram 17 g PO DAILY 03/29/21 06/20/21 History oral powder packet (Miralax) sennosides 8.6 mg-docusate sodium 1 tab-cap PO BID tab 03/29/21 06/20/21 History 50 mg tablet (Senexon-S) sertraline 25 mg tablet 25 mg PO DAILY 03/29/21 06/20/21 History vitamin B complex (Ultra B-100 1 tab PO DAILY 03/29/21 06/20/21 History Complex) fluticasone fur. 200 mcg-umeclid 1 inh INHALATION DAILY 05/02/21 06/20/21 Hist ory 62.5 mcg-vilant 25 mcg inhalat.powder (Trelegy Ellipta) metoprolol succinate 200 mg 200 mg PO DAILY 05/02/21 06/20/21 History tablet,extended release 24 hr spironolactone 25 mg tablet 25 mg PO BID 05/02/21 06/20/21 History ergocalciferol (vitamin D2) 1,250 1,250 mcg PO QWEEK 05/10/21 05/10/21 History mcg (50,000 unit) capsule (Vitamin D2) melatonin 3 mg capsule 3 mg PO HS 05/10/21 06/20/21 History tramadol 50 mg tablet 50 mg PO Q6H PRN #10 tab 06/28/21 Rx amoxicillin 875 mg-potassium 1 tab PO BID 07/09/21 History clavulanate 125 mg tablet Exam Narrative Exam Narrative: PHYSICAL EXAM GENERAL APPEARANCE: Alert, healthy appearance, oriented, in no acute distress SKIN: No rashes.? No breakdown HYDRATION: Well hydrated HEAD, EYES, EARS, NECK, THROAT: Head is normocephalic, pupils equal, round, reactive to light and accommodation, ocular movement intact, sclera clear and no jaundice. Edentulous. No sore throat.? No jaw pain. No thrush. large rhinophyma NECK: Supple, Trachea midline. No JVD. LUNGS: normal respiration/nl chest excursion. ?Clear to auscultation B/l no R/R/W ?HEART: Regular rate and rhythm, EXTREMITY: No edema or cyanosis? no leg pain, redness, swelling.? Patient can walk but chooses not to. ABDOMEN: non tender to palpation, no masses or distention, no hernias. Normal bowel sounds incisions are clean dry and intact NEURO: no focal neuro deficits. ?
[2021-07-09 14:56] VITALS: BP 100/65; PULSE 62; RESP 17; TEMP 36.5; O2SAT 97
[2021-07-09 15:14] VITALS: BP 100/65; PULSE 62; RESP 17; TEMP 36.5; O2SAT 97
[2021-07-09 15:22] VITALS: BP 100/65; PULSE 62; RESP 17; TEMP 36.5; O2SAT 97
[2021-07-09] MEDS: Normal Saline Flush 10 ML SYR IVP (16:33)
[2021-07-09] MEDS: PIPERACILLIN/TAZO 3.375 GM in Normal Saline 50 ML IVPB ×2 (16:33→22:02)
[2021-07-09] MEDS: Normal Saline 500 ML 30 ML IV (16:34)
[2021-07-09 17:07] LABS: Source Nasal/Nares
[2021-07-09 18:09] LABS: COVID-19 PCR Negative (Negative)
[2021-07-09] MEDS: Normal Saline 1,000 ML 30 ML IV (18:54)
[2021-07-09 20:22] VITALS: BP 114/76; PULSE 77; RESP 18; TEMP 37.8; O2SAT 94
[2021-07-09 20:25] VITALS: TEMP 37.8
[2021-07-09] MEDS: Docusate Sodium 100 MG CAP PO (20:25)
[2021-07-09] MEDS: Acetaminophen 325 MG TAB 650 MG PO (20:25)
[2021-07-09] MEDS: Spironolactone 25 MG TAB PO (20:25)
[2021-07-09] MEDS: Melatonin 3 MG TAB PO (22:02)
[2021-07-10] VITALS (8 sets, daily range): BP systolic 103–127; BP diastolic 68–80; PULSE 62–72; RESP 17–20; TEMP 36.3–37; O2SAT 95–97
[2021-07-10] MEDS: PIPERACILLIN/TAZO 3.375 GM in Normal Saline 50 ML IVPB ×3 (04:16→21:06)
--- NOTE | 2021-07-10 09:47 | W.PM.PROGNOT ---
Date of Service Date of service: 07/10/21 Time of Service: 09:47 Assessment and Plan Assessment and plan (1) S/P laparoscopic cholecystectomy: Status: Acute Assessment and plan: NPO Continue antibiotics Going [place] [facility] [place] of abscess within gallbladder fossa Activity as tolerated. (2) Abscess: Status: Acute Assessment and plan: 19:00 Patient is back from his drain placement at [facility]. They placed a drain in the gallbladder fossa. They removed 120 cc of brown cloudy fluid. The commercial lines sales executive states showed commercial lines sales executive negative rods. He is on Zosyn. -They also did a left-sided tap on the left pleural effusion. They only removed 30 cc of brown bloody fluid and they did leave a drain in place. It is too waterseal currently. There is no airleak. The chest x-ray from [facility] shows that the lung is. Chest x-ray is ordered for the a.m. If this is looks good I would remove this catheter. Labs are ordered for the morning. He will have been on Zosyn for 48 hours as of 07/11. He did have the source of infection drained. He is eating and tolerating regular diet. He has had no fevers. He is not having any diarrhea. He does live on the second floor of the [facility] there is an RN available to 10 to the drain. Hopefully he can be discharged home tomorrow. Clinically patient feels well. But he had an elevated white count which prompted the CT and prompted the drain placement. He has tolerated placement well. (3) Other elevated white blood cell count: Status: Acute Subjective Subjective Interval history since last seen: patient reports having RUQ/RLQ pain. He is awaiting his trip [place] [facility] [place]. Exam Const General: cooperative, healthy appearing and comfortable Orientation: alert and oriented x3 Resp Effort & Inspection: normal respiratory effort, no audible wheezes and no cough GI Inspection: normal to inspection Palpation: soft, no guarding and tender in the RLQ and in the RUQ Objective Last Vital Signs Temp 36.9 C 07/10/21 07:29 Pulse 69 07/10/21 07:29 Resp 20 07/10/21 07:29 BP 122/80 07/10/21 07:29 Pulse Ox 96 07/10/21 07:29 Laboratory Results - last 24 hr 07/09/21 16:47 COVID-19 Source Nasal/Nares SARS-CoV-2 (PCR) Negative
--- NOTE | 2021-07-10 09:59 | PDOC.CMIN ---
- If Service Date Differs Date of service: 07/10/21 Time of Service: 09:59 Care Management Initial Assess REASON FOR HOSPITALIZATION:: Hypoglycemia PAST MEDICAL HISTORY/PAST SURGICAL HISTORY:: Medical History . CHB (complete heart block). had permanent pacemaker implanted 2018 for this. Surgical History . History of permanent cardiac pacemaker placement. with subsequent repositioning PREVIOUS FUNCTIONAL STATUS/SOCIAL/FAMILY SUPPORTS:: Tim resides at the [facility] at this time. His daughterAdriana is his main support person. CURRENT FUNCTIONAL STATUS:: Tim is currently on a down and back trip to [facility] [place]. ADVANCE DIRECTIVES:: COLST form on file. Has patient been provided with info about the portal/API?: Yes Did the patient sign up for the portal?: No CODE STATUS:: DNR/DNI INSURANCE COVERAGE / FINANCIAL ISSUES:: Medicaid. Medicare CURRENT HOME/COMMUNITY SERVICES/EQUIPMENT:: [facility] POTENTIAL DISCHARGE NEEDS:: Coordinated return to the [facility]. PATIENT/FAMILY EDUCATION NEEDS:: Review discharge instructions, discuss Ask Me [employer]. ANTICIPATED BARRIERS TO DISCHARGE:: None identifed. TRANSPORTATION:: Via [facility] PLAN:: Tim remains NPO, on antibiotics, per MD he will be going to [facility] [place] for IR drain placement of abscess within gallbladder fossa, today and left this morning at 0745. CM continues to follow.
[2021-07-10] MEDS: MORPHine 2 MG/ML SYR IVP ×3 (14:43→22:48)
[2021-07-10] MEDS: Docusate Sodium 100 MG CAP PO ×2 (14:43→20:01)
[2021-07-10] MEDS: Normal Saline Flush 10 ML SYR IVP ×4 (14:44→22:48)
[2021-07-10] MEDS: Spironolactone 25 MG TAB PO (20:01)
[2021-07-10] MEDS: traMADol 50 MG TAB PO (20:13)
[2021-07-10] MEDS: Melatonin 3 MG TAB PO (21:06)
[2021-07-11 03:15] VITALS: BP 126/77; PULSE 64; RESP 18; TEMP 35.9; O2SAT 97
[2021-07-11] MEDS: PIPERACILLIN/TAZO 3.375 GM in Normal Saline 50 ML IVPB ×2 (03:44→09:37)
[2021-07-11] MEDS: MORPHine 2 MG/ML SYR IVP (03:44)
[2021-07-11] MEDS: Normal Saline Flush 10 ML SYR IVP ×3 (03:44→11:42)
[2021-07-11 05:13] VITALS: RESP 18; O2SAT 97
[2021-07-11 05:56] VITALS: RESP 19; O2SAT 97
[2021-07-11 07:04] LABS: Abs Immature Grans 0.17 10^3/uL (0.0-0.06); Absolute Basophil Count 0.06 10^3/uL (0.0-0.2); Absolute Eosinophil Count 0.17 10^3/uL (0.0-0.7); Absolute Monocyte Count 1.36 10^3/uL (0.1-0.8); Basophils % 0.7; HCT 29.3 % (40.0-50.0); HGB 9.7 g/dL (13.5-17.5); Lymphocytes % 21.9; MCH 32.9 pg (27.0-33.0); MCHC 33.1 % (32.0-36.0); MCV 99 fL (80-95); MPV 10.5 fL (8.0-11.0); Monocytes % 15.7; Neutrophils % 57.7; Platelet Count 291 10^3/uL (130-400); RBC 2.95 10^6/uL (4.36-5.78); RDW 12.2 % (11.8-14.1); RDW-SD 44.1 fL; WBC 8.66 10^3/uL (4.4-10.8)
[2021-07-11 07:18] LABS: C-Reactive Protein 20.32 mg/dL (0.0-0.3)
[2021-07-11 07:34] VITALS: BP 124/82; PULSE 63; RESP 18; TEMP 35.4; O2SAT 96
--- NOTE | 2021-07-11 08:30 | DI.RAD_ITS ---
Exam(s) XR PORTABLE CHEST AP EXAM: XR PORTABLE CHEST AP CLINICAL HISTORY: s/p thorocentisis for pleural effusion TECHNIQUE: 2D digital imaging was performed. COMPARISON: CR XR CHEST 2V PA LATERAL from 06/21/2021 CR XR PORTABLE CHEST AP from 06/26/[address] CHEST/ABD/PEL WO from 07/09/2021 FINDINGS: A catheter is been inserted into the left lung base. A loculated collection was noted on prior CT. No pneumothorax. There is blunting at the left costophrenic angle . Right pleural calcification is again seen. The heart is enlarged, unchanged. Pacemaker is noted. There is chronic deformity of t he distal left clavicle. IMPRESSION: Status post placement of catheter at left lower lung field. No pneumothorax. DATA REPOSITORY: RADIATION DOSE DELIVERED:
[2021-07-11] MEDS: traMADol 50 MG TAB PO ×2 (08:55→21:25)
[2021-07-11] MEDS: Pantoprazole 40 MG TABCR PO (09:34)
[2021-07-11] MEDS: Metoprolol CR 100 MG TABCR 200 MG PO (09:34)
[2021-07-11] MEDS: Lisinopril 10 MG TAB PO (09:35)
[2021-07-11] MEDS: Docusate Sodium 100 MG CAP PO ×3 (09:35→21:01)
[2021-07-11] MEDS: Sertraline 25 MG TAB PO (09:36)
[2021-07-11] MEDS: Polyethylene Glycol 3350 17 GM PACKET PO (09:36)
[2021-07-11] MEDS: Spironolactone 25 MG TAB PO ×2 (09:36→21:00)
[2021-07-11] MEDS: Normal Saline 500 ML 30 ML IV (09:39)
--- NOTE | 2021-07-11 11:37 | CHAPLAIN ---
Tim was a patient here a few weeks ago and recently returned. This morning he told me he hopes to return to the [facility] today. He said the food is better at the [facility], and that's why he wants to return. He has two drains in, one for his lung, he explained.
--- NOTE | 2021-07-11 14:50 | W.PM.DS.N ---
Date of service: 07/11/21 Time of Service: 14:50 DS: Diagnosis Discharge Diagnosis (1) S/P laparoscopic cholecystectomy: (2) Other elevated white blood cell count: Status: Resolved (3) Postoperative abscess: Status: Acute Discharge Plan Disposition Patient Disposition: [facility] (LEVEL 2) [facility] Condition: Stable Discharge Details Reason For Visit: FRED Peraza Admit Date/Time: 07/09/21 14:15 Admit Provider: Virginia Price Attending Provider: Virginia Price Primary Care Provider: Unknown,Unknown Hospital Course Hospital Course: Mr Mera was admitted on 07/09/21 for leukocytosis and continued fluid collection in the Gallbladder fossa. CT scan was suspicious for a postoperative abscess. He went down to [facility] for drain placement. While there they also placed a Pigtail into his left chest cavidy for chronic effusion. There is brown/bloody discharge from the chest and some drk brown discharge from the abdominal drain. His WBC count today is normal. He is eating without pain. N/V. We will discharge him back to the [facility] on Antibiotics. Follow up on Friday with Dr. Price. Home Meds and New Rx's Prescriptions: New amoxicillin-pot clavulanate 875-125 mg tablet 1 tab PO BID Qty: 20 0RF Continued albuterol sulfate 90 mcg/actuation aerosol powdr breath activated 2 inh inhalation Q4H PRN Antacid (calcium carbonate) 215 mg calcium (500 mg) tablet,chewable 430 mg PO QID fluticasone propionate 50 mcg/actuation spray,suspension 1 spray intranasal BID Rx Instructions: administer into each nostril sertraline 25 mg tablet 25 mg PO DAILY Ultra B-100 Complex Tablet Extended Release 1 tab PO DAILY calcium citrate-vitamin D3 [Calcium Citrate + D] 315 mg-5 mcg (200 unit) tablet 1 tab PO DAILY lisinopril 10 mg tablet 10 mg PO DAILY pantoprazole 40 mg tablet,delayed release (DR/EC) 40 mg PO DAILY polyethylene glycol 3350 [Miralax] 17 gram powder in packet 17 g PO DAILY magnesium oxide 400 mg magnesium capsule 800 mg PO BID sennosides-docusate sodium [Senexon-S] 8.6-50 mg tablet 2 tab-cap PO BID acetaminophen [Tylenol Extra Strength] 500 mg tablet 1,000 mg PO TID metoprolol succinate 200 mg tablet extended release 24 hr 200 mg PO DAILY Adonis Ellipta 200-62.5-25 mcg blister with device 1 inh inhalation DAILY spironolactone 25 mg tablet 50 mg PO BID ergocalciferol (vitamin D2) [Vitamin D2] 1,250 mcg (50,000 unit) capsule 1,250 mcg PO QWEEK melatonin 3 mg capsule 3 mg PO HS tramadol 50 mg tablet 50 mg PO Q6H PRNQty: 10 0RF Spiriva Respimat 2.5 mcg/actuation Mist 2 puff INHALATION DAILY Discontinued amoxicillin-pot clavulanate 875-125 mg tablet 1 tab PO BID amoxicillin-pot clavulanate [Augmentin] 875-125 mg Tablet 1 tab Discharge Instructions Instructions: Chest Tubes (DC) Additional Instructions: Activity at Home after surgery: 1. Make sure you walk outside at least 4 times per day Diet, Nutrition, & wound healin. Avoid alcohol until after you are recovered from your surgery 2. Make sure to eat plenty of lean protein (meat, fish, eggs, cottage cheese, beans) 3. Eat a variety of fruits and vegetables. Eat plenty of high fiber foods to avoid constipation. 4. Drink plenty of liquids to stay hydrated and avoid constipation Pain Medications: 1. Tylenol 650mg every 6 hours as needed and Ibuprofen 600 mg every 6 hours as needed. You may alternate between the 2 medications every 3 hours 2. If a narcotic has been prescribed take as directed only for breakthrough pain For Constipation: 1. Take Milk of Magnesia or MiraLax as needed for constipation Other: 1. You may shower daily. Do not scrub around the tubes 2. Do not soak the incisions for 1 week 3. You may alternate ice and heat as needed for pain and swelling Wound Care: 1. change dressings around the drains daily Nursin. Assist patient with drain care 2. Milk the tubes daily 3. please record the output daily Please call our office if you develop: 1. Fevers >101.5 2. Nausea or Vomiting 3. Worsening pain 4. Redness and thick discharge from the wounds If after hours please call the Hospital at and ask to speak to the on-call surgeon Stand Alone Forms: Nursing Discharge Form Referrals: Virginia Price DO [OSTEOPATHIC DOCTOR] - 07/16/21 11:00 am Activity:: Activity as Tolerated Equipment/Supplies:: No Equipment Needed Diet:: As Tolerated Discharge Orders Discharge Orders: Discharge Order (Routine); Ordered 07/12/21 Ordered By: Sandra Almeida Discharge Data Discharge Date/Time-TO BE ENTERED AT DEPARTURE: 07/12/21 10:10 DS: Summary Time Spent with Patient providing and/or coordinating discharge services: Less than 30 minutes Status at Discharge Functional status at discharge: independent ambulation Overall status at discharge: patient is progressing back to baseline Mental Status: mental status grossly normal Speech and Movement: speech and movement normal Mood: congruent mood Affect: normal affect Exam Psych Mental Status: mental status grossly normal Speech and Movement: speech and movement normal Mood: congruent mood Affect: normal affect DS: Data Vitals/I&O Vitals and I&O: Vital Signs Temperature 95.8 F L 07/11/21 07:34 Temperature Source Tympanic 07/11/21 07:34 Pulse 63 07/11/21 07:34 Pulse Rhythm Regular 07/11/21 12:28 Respiratory Rate 18 07/11/21 07:34 Respiratory Effort 07/11/21 12:28 Respiratory Depth Normal 07/11/21 12:28 Respiratory Pattern Normal 07/11/21 12:28 Blood Pressure 124/82 07/11/21 07:34 Pulse Oximetry 96 07/11/21 07:34 Oxygen Delivery Method Room Air 07/11/21 07:34 Oxygen Flow Rate 0 07/11/21 07:34 Pain Level 8 07/11/21 08:55 Comment 07/11/21 03:15 Intake & Output 07/10/21 07/11/21 07/11/21 23:59 11:59 23:59 Intake Total 215 / 1051.0 150 / 250 100 / 250 Output Total 240 / 1070 291 / 309 18 / 309 Balance -25 / -19.0 -141 / -59 82 / -59 Intake: IV 100 / 936.0 50 / 50 Oral 100 / 100 100 / 200 100 / 200 Injectate 15 / 15 0 / 0 Right Lower Abdomen 15 / 15 0 / 0 Output: Chest Tube Drainage 61 / 79 18 / 79 Drainage 40 / 40 5 / 5 Right Lower Abdomen 40 / 40 5 / 5 Urine 200 / 1030 225 / 225 Other: Urine Color Yellow Yellow Urine Appearance Clear Clear Urine Odor Normal Normal Voiding Methods Urinal Urinal Data Completed and Pending Labs on day of discharge: Labs from last 24 hours 07/11/21 07/11/21 07/11/21 14:49 06:35 06:35 WBC 8.66 RBC 2.95 L Hgb 9.7 L Hct 29.3 L MCV 99 H MCH 32.9 MCHC 33.1 RDW 12.2 Plt Count 291 MPV 10.5 Immature Gran % 2.0 Neutrophils % 57.7 Lymphocytes % 21.9 Monocytes % 15.7 Eosinophils % 2.0 Basophils % 0.7 Nucleated RBC % 0.0 Absolute Neutrophils 5.00 Absolute Lymphocytes 1.90 Absolute Monocytes 1.36 H Absolute Eosinophils 0.17 Absolute Basophils 0.06 C-Reactive Protein 20.32 H COVID-19 Source Pending SARS-CoV-2 (PCR) Pending Preliminary micro results at discharge 07/09/21 19:39 Blood Culture - Preliminary Blood NO GROWTH 24 HOURS 07/09/21 19:30 Blood Culture - Preliminary Blood NO GROWTH 24 HOURS PFSH All Active Problems (Updated 07/16/21 @ 06:32 by Sandra Almeida MD) Postoperative abscess (Acute) Abscess (Acute) Recurrent left pleural effusion (Acute) Sacroiliitis (Acute) 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 Most likely this is inflammatory tissue and not actually fluid. pt has had multiple taps. He was on a prolonged course of IV abx and has failed to resolve. This is a sequelae of this pericardial tamponade following disruption of his RA lead from pacemaker insertion. COPD (chronic obstructive pulmonary disease) (Chronic) Depression (Chronic) Lymphedema (Acute) HTN (hypertension) with goal to be determined (Chronic) Obesity (Chronic) DNR (do not resuscitate) (Acute) Presence of cardiac pacemaker (Chronic) eSKY.pl [employer] PPM MRI model L111 Serial # [id number] placed dual chamber 04/30/2017 for CHB at [facility]. Complications included pericardial effusion with tamponade and need for reposition R atrial lead 05/16/20 Coronary artery disease (Chronic) Rhinophyma (Acute) Hyponatremia, hypo-osmolarity, or hypo-osmolar hyponatremia (Acute) Vitamin D deficiency (Acute) Medical History CHB (complete heart block) had permanent pacemaker implanted 2018 for this Surgical History History of permanent cardiac pacemaker placement with subsequent repositioning Social History Smoking/Tobacco Use Status: Never Smoking risk assessment performed?: Yes Alcohol Intake: current Alcohol Intake frequency: 0-2 drinks per day Alcohol type: beer Housing: assisted living facility Pets and animals: No Do you feel safe at home: Yes Do you feel safe in your relationship?: Yes
[2021-07-11 15:34] LABS: Source Nasal/Nares
--- NOTE | 2021-07-11 15:40 | CMDISCH_ITS ---
- If Service Date Differs Date of service: 07/11/21 Time of Service: 15:40 LACE Index Scoring Tool - Questions: Length of Stay (in days): 2 Acuity (Admit via E.D.?): No Comorbidities: Congestive Heart Failure E.D. Visits: 1 - Answers: Total Score: 5 Risk of Readmission: Low Risk Care Management Discharge Reason for Hospitalization: Hypoglycemia Discharge Plan: Discharge back to the [facility] via EMS s/p chest tube insertion. Per pt, he will only travel by EMS, even though CM offered a RCT W/C Van. Tim will continue his medications as prescribed and follow up with community providers. Patient/Family Education Needs: Review discharge instructions, limitations, medications and plan to follow up with community providers. Chest tube education and ask me three. Services Needed at Discharge: Senior Care Facility (Discharge back to the [facility] for LTC.), Transportation (Via [facility]. arranged by CM, at patients request)
[2021-07-11 16:47] LABS: COVID-19 PCR Negative (Negative)
[2021-07-11 17:07] VITALS: BP 123/79; PULSE 61; RESP 22; TEMP 36.8; O2SAT 94
[2021-07-11 19:45] VITALS: O2SAT 96
[2021-07-11] MEDS: Amoxicillin 875/Clav. 125 TAB PO (21:00)
[2021-07-11] MEDS: Melatonin 3 MG TAB PO (22:09)
--- NOTE | 2021-07-12 | DI.RAD_ITS ---
Exam(s) XR PORTABLE CHEST AP EXAM: XR PORTABLE CHEST AP CLINICAL HISTORY: fluid collection - left TECHNIQUE: COMPARISON: CR XR PORTABLE CHEST AP from 07/11/2021 FINDINGS: The heart is mildly enlarged. There is a transvenous cardiac pacemaker in position. Calcific pleura l radiodensities noted on the right. Left thoracotomy tube noted in place inferiorly, no gross inter jeremiah change appearance of left lung since yesterday's examination. No pneumothorax seen. IMPRESSION: RADIATION DOSE DELIVERED: Total DLP
[2021-07-12 00:15] VITALS: BP 100/60; PULSE 60; RESP 16; TEMP 36.4; O2SAT 96
[2021-07-12 07:38] VITALS: BP 137/86; PULSE 60; RESP 18; TEMP 36.5; O2SAT 96
[2021-07-12] MEDS: Amoxicillin 875/Clav. 125 TAB PO (07:44)
[2021-07-12] MEDS: Lisinopril 10 MG TAB PO (07:45)
[2021-07-12] MEDS: Pantoprazole 40 MG TABCR PO (07:45)
[2021-07-12] MEDS: Spironolactone 25 MG TAB PO (07:46)
[2021-07-12] MEDS: traMADol 50 MG TAB PO (07:46)
[2021-07-12] MEDS: Sertraline 25 MG TAB PO (07:46)
--- NOTE | 2021-07-12 09:19 | PGE_ITS ---
Date of Service Date of service: 07/12/21 Time of Service: 08:19 Assessment and Plan Assessment and plan (1) Abscess: Status: Acute (2) Other elevated white blood cell count: Status: Acute (3) Recurrent left pleural effusion: Status: Acute Subjective Subjective Interval history since last seen: Pt is doing well. no headaches. No CP or SOB. no productive cough. no dysuria. no leg pain or swelling. He has had minimal out Of LEYDA and nothing out of chest drain C & S from [facility] for chest were sterile- no growth in 24 hrs and gram stain was negative as well. I did elect to pull this drian today. C & S from abdom drain show rare e. coli we will plan on repeat CT scan nect week He is having no abdominal pain. His incisions are clean dry and intact. He is tolerating a regular diet. He is not running a white count Patient is being discharged back to the [facility][1] today. See orders Exam Resp Effort & Inspection: normal respiratory effort and able to speak in complete sentences Auscultation: clear to auscultation bilaterally Other: Drain is removed and compression dressing is applied Cardio Rate: regular rate Rhythm: regular rhythm GI Other: Soft and nontender. Incisions are clean dry and intact. Sutures are removed. Drain site is clean dry and intact. LEYDA has what appears to be old blood.. He has had minimal output in the past 24 hours Objective Last Vital Signs Temp 36.5 C 07/12/21 07:38 Pulse 60 07/12/21 07:38 Resp 18 07/12/21 07:38 BP 137/86 07/12/21 07:38 Pulse Ox 96 07/12/21 07:38 Laboratory Results - last 24 hr 07/11/21 15:00 COVID-19 Source Nasal/Nares SARS-CoV-2 (PCR) Negative
--- NOTE | 2021-07-12 09:35 | NUR.NOTE ---
Nursing Note: report called to Amelia at the [facility]. Chest tube and LEYDA drain dressings changed.
== END 2021-07-12 10:10 | disposition intermediate care facility (04) | DRG 863 ==
PROVIDERS: Surgery; Admitting Provider Surgery; Visit Provider Surgery
DX: T81.43XA Infection following a procedure, organ and space surgical site, initial encounter (principal); J90 Pleural effusion, not elsewhere classified; J44.9 Chronic obstructive pulmonary disease, unspecified; I10 Essential (primary) hypertension; I25.10 Atherosclerotic heart disease of native coronary artery without angina pectoris; M46.1 Sacroiliitis, not elsewhere classified; F32.A Depression, unspecified; E66.9 Obesity, unspecified; Z68.29 Body mass index [BMI] 29.0-29.9, adult; Z66 Do not resuscitate; Z95.0 Presence of cardiac pacemaker; E55.9 Vitamin D deficiency, unspecified; L71.1 Rhinophyma
CPT/HCPCS: 32557; 36415; 87040; 87635; 71045; 85025; 86140; A0425; A0426; A0429; J2270; J2543

== ENCOUNTER 2021-07-17 18:08 | Outpatient (REF) | payer MEDICARE, MEDICAID, SELFPAY ==
[2021-07-17 18:23] LABS: Abs Immature Grans 0.13 10^3/uL (0.0-0.06); Absolute Basophil Count 0.03 10^3/uL (0.0-0.2); Absolute Eosinophil Count 0.18 10^3/uL (0.0-0.7); Absolute Lymphocyte Count 2.02 10^3/uL (1.2-3.4); Absolute Monocyte Count 1.09 10^3/uL (0.1-0.8); Absolute Neutrophil Count 4.14 10^3/uL (1.2-6.7); Basophils % 0.4; Eosinophils % 2.4; HCT 32.6 % (40.0-50.0); HGB 10.8 g/dL (13.5-17.5); Immature Grans % 1.7; Lymphocytes % 26.6; MCH 32.7 pg (27.0-33.0); MCHC 33.1 % (32.0-36.0); MCV 99 fL (80-95); MPV 11.4 fL (8.0-11.0); Monocytes % 14.4; Neutrophils % 54.5; Platelet Count 300 10^3/uL (130-400); RDW 12.7 % (11.8-14.1); RDW-SD 45.8 fL; WBC 7.59 10^3/uL (4.4-10.8)
[2021-07-17 18:26] LABS: Iron 78 ug/dL (65-175); Total Iron Binding Capacity 152 ug/dL (250-450); Transferrin Sat 51 % (20-55)
[2021-07-17 18:59] LABS: ALT 29 U/L (16-63); AST 26 U/L (15-37); Albumin 2.7 g/dL (3.4-5.0); Alkaline Phosphatase 111 U/L (46-116); Anion Gap 8.8 mmol/L (3-11); BUN 10 mg/dL (7-18); Bilirubin, Total 0.1 mg/dL (0.2-1.0); CO2 25.2 mmol/L (21.0-32.0); CREATININE 0.6 mg/dL (0.70-1.30); Chloride 101 mmol/L (98-107); Folate 16.9 ng/mL (8.6-20.0); Glucose 97 mg/dL (74-106); Magnesium 1.7 mg/dL (1.8-2.4); Potassium 4.1 mmol/L (3.5-5.1); Sodium 135 mmol/L (136-145); TSH (W/Ref FT4) 1.49 uIU/mL (0.36-3.74); Vitamin B12 839 pg/mL (193-986)
[2021-07-17 19:03] LABS: Ferritin 1511 ng/mL (26-388)
[2021-07-17 19:10] LABS: Hemoglobin A1C 5.7 % (<5.7)
[2021-07-19 06:36] LABS: Vitamin D 25 Total 24.8 ng/mL (30-100)
== END 2021-07-17 18:09 | disposition home or self-care (01) ==
LOC: LBN 18:08
PROVIDERS: Visit Provider Nurse Practitioner Gerontology
DX: K70.9 Alcoholic liver disease, unspecified (principal); J44.9 Chronic obstructive pulmonary disease, unspecified; I25.10 Atherosclerotic heart disease of native coronary artery without angina pectoris; E83.42 Hypomagnesemia
CPT/HCPCS: 80053; 82306; 82607; 82728; 82746; 83036; 83540; 83550; 83735; 84443; 85025

== ENCOUNTER → 2021-07-19 01:43 | Outpatient (CLI) | payer MEDICARE, MEDICAID, SELFPAY ==
--- NOTE | 2021-07-19 10:05 | DI.CT_ITS ---
Exam(s) CT ABDOMEN PELVIS WO EXAM: CT ABDOMEN PELVIS WO CLINICAL HISTORY: s/p drainage abcess of GB fossa,L02.91. TECHNIQUE: Imaging Protocol: Axial computed tomography images with coronal and sagittal reformatted images were created and reviewed. COMPARISON: CT CT CHEST/ABD/PEL WO from 07/09/2021 FINDINGS: ABDOMEN: Lung Bases: The loculated fluid collection in the left lung base is present. It is incompletely imag ed but measures at least 8.4 x 6.4 x 9.7 cm. There is now air within the fluid collection. Subjacen t infiltrate is also present in the left lung base. Calcification of the right pleura is noted. Cardi omegaly. Liver: Normal density. No measurable mass. Gallbladder and biliary tract: Status post cholecystectomy. There has been interval resolution of the fluid collection in the gallbladder fossa. There is a drainage catheter coiled in the fossa. Pancreas: Normal density, no abnormal calcifications or inflammatory process. Spleen: Normal. Kidneys: Normal size, contour and axis.No radiodense stones or obstructive uropathy. No masses seen. Adrenal glands: No mass is seen. Lymph nodes: Within normal limits. Abdominal Aorta: Abdominal portion non-dilated. Atherosclerosis. PELVIS: Bladder:Symmetric distention, no gross wall thickening. Bowel: No obstruction or bowel wall thickening. No evidence of appendicitis. There are few diverticul a seen in the sigmoid colon, but no evidence of acute diverticulitis. Peritoneal cavity: No ascites, collection or mesenteric inflammatory response. No free air. Reproductive organs: Within normal limits. Bones: Within normal limits. Left convex curvature of the lumbar spine. Soft Tissues: There are stable fluid attenuation lesions in the subcutaneous tissues adjacent to the right gluteal muscles. There is also a partially calcified in capsulated fluid collection posterior t o the sacrum and left ilium. There is stable erosion of the adjacent left iliac bone. There is a 3.4 cm lipoma in the soft tissues lateral to the left iliac bone. IMPRESSION: 1. Interval resolution of the abscess in the gallbladder fossa. 2. Persistent loculated left pleural fluid collection. The collection now contains air. Please correl ate for any recent aspiration. 3. Otherwise stable findings in the abdomen and pelvis as described above. RADIATION DOSE DELIVERED: 1,507.59mGy.cm Total DLP DATA REPOSITORY: All CT scans at this facility are submitted to the National Radiology Data Registry (NRDR) Dose Index Registry (DIR) with the [employer] (ACR). RADIATION OPTIMIZATION: All CT scans at this facility use at least one of these dose optimization te chniques: automated exposure control; mA and/or kV adjustment per patient size (includes targeted exa ms where dose is matched to clinical indication); or iterative reconstruction.
[2021-07-19] MEDS: Barium Sulfate 2% W/V-Creamy Vanilla Smoothie 450 ML BTL PO (10:18)
== END ==
PROVIDERS: Visit Provider Surgery
DX: K81.0 Acute cholecystitis (principal); Z90.49 Acquired absence of other specified parts of digestive tract
CPT/HCPCS: 74176

== ENCOUNTER 2021-09-04 17:16 | Outpatient (REF) | payer MEDICARE, MEDICAID, SELFPAY ==
[2021-09-04 18:45] LABS: Ferritin 878 ng/mL (26-388)
[2021-09-04 18:56] LABS: Iron 122 ug/dL (65-175); Total Iron Binding Capacity 222 ug/dL (250-450); Transferrin Sat 55 % (20-55)
[2021-09-06 05:13] LABS: Vitamin D 25 Total 35.3 ng/mL (30-100)
== END 2021-09-04 17:17 | disposition home or self-care (01) ==
LOC: LBN 17:16
PROVIDERS: Visit Provider Nurse Practitioner Gerontology
DX: K70.9 Alcoholic liver disease, unspecified (principal); E66.8 Other obesity; E83.42 Hypomagnesemia; F33.9 Major depressive disorder, recurrent, unspecified; R53.1 Weakness
CPT/HCPCS: 82306; 82728; 83540; 83550

== ENCOUNTER 2021-09-28 02:05 | Outpatient (CLI) | payer MEDICARE, MEDICAID, SELFPAY ==
--- OUTSIDE RECORDS SUMMARY | 2021-09-28 02:19 | XMS_ITS | Encounter Summary ---
:1950 Author Organization [facility] Address [address] [place] [address] Care Team Providers Name Role Phone Katia Mccallum PA-C Primary Care Provider [phone] Encounter Details Date Type Department Care Team Description 09/06/2020 Results Only [facility]- [facility] Rowan Abad NP [phone] [place] [phone] (Wo rk) Social History Tobacco Use Types Packs/Day Years Used Date Never Smoker Smokeless Tobacco: Never Used Alcohol Use Standard Drinks/Week Comments Yes 0 (1 standard drink = 0.6 oz pure alcoho l) whiskey-daily, 2 Alcohol Habits Answer Date Recorded How often do you have a drink containing alcohol? Not asked How many drinks containing alcohol do you have on a Not aske d typical day when you are drinking? How often do you have six or more drinks on one Not asked occasion? Comment: whiskey-daily, 2 06/19/2020 Sex Assigned at Date Recorded Not on file documented as of this encounter Functional Status Functional Status Response Date of Assessment Are you deaf or do you have serious difficulty hearing? No 06/12/2017 Are you blind or do you have serious difficulty seeing, No 06/12/2017 even when wearing glasses? Do you have serious difficulty walking or climbing No 06/12/2017 stairs? (5 years old or older) Do you have difficulty dressing or bathing? (5 years old Yes 06/12/2017 or older) Because of a physical, mental, or emotional condition, do No 06/12/2017 you have difficulty doing errands alone such as visiting a doctor's office or shopping? (15 years old or older) Cognitive Status Response Date of Assessment Because of a physical, mental, or emotional condition, do No 06/12/2017 you have serious difficulty concentrating, remembering, or making decisions? (5 years old or older) documented as of this encounter Plan of Treatment Not on filedocumented as of this encounter Procedures Procedure Name Priority Date/Time Associated Comments Diagnosis CREATININE WITH GFR Routine 09/06/2020 5:05 EDT R esults for this - PMC procedure are i n the results section. PLATELET COUNT Routine 09/06/2020 5:05 EDT Result s for this procedure are i n the results section. documented in this encounter Results PLATELET COUNT (09/06/2020 5:05 EDT) Pathologist Sig nature PLATELET COUNT - [facility] 236 150 - 450 10 [facility] 3/uL CENTER LAB Specimen Narrative [facility] - 09/06/2020 5 :58 EDT Comment ENOXAPARIN MONITORING Performing Organization Address City/[facility] Code Phon e Number [facility] [address] [place] [address] (ABNORMAL) CREATININE WITH GFR - PMC (09/06/2020 5:05 EDT) Creatinine 0.60 (L) 0.70 - 1.30 [facility] mg/dl CENTER LAB Estimated GFR >60 >60 [facility] Comment: CENTER LAB EGFR UNITS: mL/min/1.73 m 2 CKD-EPI Equation used to calculate. Specimen Performing Organization Address [facility] e [facility] [address] [place] [address] documented in this encounter Visit Diagnoses Not on filedocumented in this encounter Care Teams Core Drilling Supervisor Relationship Specialty Start Date End Date Katia Mccallum PA-C PCP - General 05/02/17 [address] [place] [id number] documented as of this encounter
--- OUTSIDE RECORDS SUMMARY | 2021-09-28 02:19 | XMS_ITS | Encounter Summary ---
:1950 Author Organization [facility] Address [address] [place] [id number] Care Team Providers Name Role Phone Katia Mccallum PA-C Primary Care Provider Encounter Details Date Type Department Care Team Description 09/14/2020 Results Only [facility]- [facility] Rowan Abad NP [phone] [place] [phone] (Wo rk) Social History Tobacco Use [...] Associated Comments Diagnosis CREATININE WITH GFR Routine 09/14/2020 5:35 EDT R esults for this - PMC procedure are i n the results section. PLATELET COUNT Routine 09/14/2020 5:35 EDT Result s for this procedure are i n the results section. documented in this encounter Results (ABNORMAL) PLATELET COUNT (09/14/2020 5:35 EDT) Pathologist Sig nature PLATELET COUNT - [facility] 94 (L) 150 - 450 10 [facility] 3/uL CENTER LAB Specimen Narrative [facility] - 09/14/2020 6 :16 EDT Comment ENOXAPARIN MONITORING Performing Organization Address City/[facility] Phon e Number [facility] [address] [place] [address] (ABNORMAL) CREATININE WITH GFR - PMC (09/14/2020 5:35 EDT) Creatinine 0.58 (L) 0.70 - 1.30 [facility] mg/dl CENTER LAB Estimated GFR >60 >60 [facility] Comment: CENTER LAB EGFR UNITS: mL/min/1.73 m 2 CKD-EPI Equation used to calculate. Specimen Performing Organization Address [facility] e [facility] LAB [address] [place] [address] documented in this encounter Visit Diagnoses Not on filedocumented in this encounter Care Teams Fire Patrol Relationship Specialty Start Date End Date Katia Mccallum PA-C PCP - General 05/02/[address] [place] [id number] documented as of this encounter
--- OUTSIDE RECORDS SUMMARY | 2021-09-28 02:19 | XMS_ITS | Encounter Summary ---
:1950 Author Organization [facility] Address [address] [place] [address] Care Team Providers Name Role Phone Katia Mccallum PA-C Primary Care Provider Encounter Details Date Type Department Care Team Description 06/21/2021 Lab Requisition [facility] Virginia Price A cute cholecystitis Pathology & DO Laboratory Medicine - [address] [employer] [facility] [address] [place] [phone] Social History Tobacco Use Types Packs/Day Years [...] encounter Procedures Procedure Name Priority Date/Time Associated Diagnosis Comme nts SURGICAL PATHOLOGY Today 06/21/2021 11:58 Acute cholecystiti s Results for this EDT procedure are i n the results section. documented in this encounter Results SURGICAL PATHOLOGY (06/21/2021 11:58 EDT) Note to Patient The following [facility] pathology results CENTER have been interpreted LABORATORY by your pathologist SERVICES and may be available to you before your health provider has had the opportunity to review them. Please allow time for your provider to receive these results and explore management options, if applicable. Final Diagnosis A. GALLBLADDER, CHOLECYSTECTOMY: AUREA BUCHANAN - Acute and chronic erosive cholecystitis. CENTER LABORATORY SERVICES Attestation There was significant [facility] Electr onically resident/fellow CENTER signed by Ab hever Raines involvement in the LABORATORY Hallie Orosco on diagnostic evaluation SERVICES 022 at 1043 of this case. By the signature below, the attending physician certifies that they have personally conducted a gross and/or microscopic examination of the described specimens and rendered or confirmed the above diagnosis. Clinical History Cholecystitis [facility] LABORATORY SERVICES Gross Description A. [facility] Received in formalin edy d with proper patient identification (initials B, J) and gallbladder bile is an intact gallbladder with an attached segment of cystic duct (7.3 x 4.5 x 3.5 cm). A cystic duct lymph node is not present. CENTER The serosa is mottled isbell-wh ite to red-brown with chowdary-white adhesions. The mucosa is denuded red-brown and the wall is 0.2 cm in thickness. The cystic duct lumen is patent and measures 0.4 cm in diamet LABORATORY er. The cystic duct margin i s inked blue. No calculi are found within the gallbladder or free-floating within the container. SERVICES Two labor union business representative sections and the en face cystic duct margin are submitted in A1. GIRISH GOMEZ(ASC) 06/22/2021 7:58 Resident/Fellow: Chayo Chatman MD [facility] LABORATORY SERVICES Performing Lab [facility] LABORATORY SERVICES Scanned Images [facility] LABORATORY SERVICES Specimen Tissue - Entire gallbladder (body struct ure) Performing Organization Address City/State/ZIP Code Phon e Number [facility] LABORATORY [address] [place] [address] SERVICES documented in this encounter Visit Diagnoses Diagnosis Acute cholecystitis documented in this encounter Care Teams Survival Equipment Repairer Relationship Specialty Start Date End Date Katia Mccallum PA-C PCP - General 05/02/[address] [place] [address] documented as of this encounter
--- OUTSIDE RECORDS SUMMARY | 2021-09-28 02:19 | XMS_ITS | Encounter Summary ---
:1950 Author Organization [facility] Address [address] [place] [address] Care Team Providers Name Role Phone Katia Mccallum PA-C Primary Care Provider [phone] Encounter Details Date Type Department Care Team Description 08/22/2020 Results Only [facility] Rowan Abad NP [phone] [place] [phone] (Wo rk) Social History Tobacco Use [...] Procedure Name Priority Date/Time Associated Comments Diagnosis COMPLETE BLOOD COUNT Routine 08/22/2020 5:30 Resu lts for this AND DIFFERENTIAL EDT procedure a re in the results section. MAGNESIUM Routine 08/22/2020 5:30 Results for this EDT procedure are i n the results section. BASIC METABOLIC PANEL Routine 08/22/2020 5:30 Res ults for this (BMP) EDT procedure are i n the results section. documented in this encounter Results MAGNESIUM (08/22/2020 5:30 EDT) Pathologist Sig nature Magnesium 1.8 1.8 - 2.4 mg/dl [facility] Specimen Performing Organization Address [facility] Phon e [facility] [address] [place] [address] (ABNORMAL) BASIC METABOLIC PANEL (BMP) (08/22/2020 5:30 EDT) Sodium 133 (L) 136 - 145 mEq/L [facility] Potassium 3.7 3.5 - 5.1 mEq/L [facility] Chloride 101 96 - 107 mEq/L [facility] CO2 Total 26.1 21 - 32 mEq/L [facility] Anion Gap 6.9 mEq/L [facility] BUN 8 7 - 25 mg/dl [facility] Creatinine 0.67 (L) 0.70 - 1.30 [facility] mg/dl [facility] Estimated GFR >60 >60 [facility] Comment: [facility] EGFR UNITS: mL/min/1.73 m 2 CKD-EPI Equation used to calculate. Glucose 94 74 - 106 mg/dl [facility] Calcium 8.2 (L) 8.5 - 10.1 [facility] mg/dl [facility] Specimen Performing Organization Address [facility] Phon e Number [facility] [address] [place] [address] (ABNORMAL) COMPLETE BLOOD COUNT AND DIFFERENTIAL (08/22/2020 5:30 EDT) WBC 6.0 4.0 - 10.5 10 [facility] 3/uL [place] [facility] RBC 2.84 (L) 4.70 - 6.00 10 [facility] 6/uL [place] [facility] Hemoglobin 10.0 (L) 13.5 - 18.0 g/dL [facility] HCT 28.3 (L) 42.0 - 52.0 % [facility] MCV 99.6 78 - 100 fL [facility] MCH 35.2 (H) 27 - 31 pg [facility] MCHC 35.3 32 - 37 g/dL [facility] RDW-CV - PMC 14.3 <14.7 % [facility] PLATELET COUNT - 209 150 - 450 10 3/uL [facility] MPV 11.7 9.2 - 12.0 fL [facility] NEUTROPHILS % 58.1 % [facility] (AUTO) [facility] LYMPHOCYTES % 22.9 % [facility] (AUTO) [facility] MONOCYTES % (AUTO) 14.4 % [facility] EOSINOPHILS % 3.3 NOT ESTABLISHED % [facility] (AUTO) [facility] BASOPHILS % (AUTO) 1.0 % [facility] Immature 0.3 % [facility] Granulocyte % [facility] (Auto) NUCLEATED RBC % 0.0 % [facility] (AUTO) [facility] NEUTROPHILS # 3.5 1.5 - 6.6 10 3/uL [facility] (AUTO) [facility] LYMPHOCYTES # 1.4 1.0 - 3.5 10 3/uL [facility] (AUTO) [facility] MONOCYTES # (AUTO) 0.9 <1.0 10 3/uL [facility] EOSINOPHILS # 0.2 <0.7 10 3/uL [facility] (AUTO) [facility] BASOPHILS # (AUTO) 0.1 <0.1 10 3/uL [facility] Absolute Immature 0.02 <0.06 10 3/uL [facility] Granulocyte [place] [facility] DIFFERENTIAL Auto Differential [facility] Specimen Performing Organization Address City/State/ZIP Code Phon e Number [facility] [address] [place] [address] documented in this encounter Visit Diagnoses Not on filedocumented in this encounter Care Teams Machine Sizer Relationship Specialty Start Date End Date Katia Mccallum PA-C PCP - General 05/02/[address] [place] [id number] documented as of this encounter
--- OUTSIDE RECORDS SUMMARY | 2021-09-28 02:19 | XMS_ITS | Encounter Summary ---
:1950 Author Organization [facility] Address [address] [place] [address] Care Team Providers Name Role Phone Katia Mccallum PA-C Primary Care Provider Encounter Details Date Type Department Care Team Description 08/08/2020 Results Only [facility] Virginia Quintana MD Dermatology - [facility] [address] [place], [place] [id number] [place], [place] [address] [phone] Social History Tobacco Use Types Packs/Day Years [...] Name Priority Date/Time Associated Diagnosis Comme nts ADD ON TEST REQUEST Routine 08/08/2020 21:17 Resu lts for this - PMC EDT procedure are i n the results section. MAGNESIUM Routine 08/08/2020 16:47 Results for this EDT procedure are i n the results section. documented in this encounter Results ADD ON TEST REQUEST - PMC (08/08/2020 21:17 EDT) Pathologist Sig nature Special Requests ADD ON DONE [facility] Comment: [facility] All tests (see tests in sample comments) have been add ed as requested. Specimen Narrative [facility] - 08/08/2020 2 1:57 EDT ED this evening Mg Performing Organization Address City/[facility] [address]/ZIP Code Phon e Number [facility] [address] [place] [address] (ABNORMAL) MAGNESIUM (08/08/2020 16:47 EDT) Pathologist Sig nature Magnesium 1.7 (L) 1.8 - 2.4 mg/dl [facility] Specimen Performing Organization Address City/[facility] [address]/ZIP [facility] [place] [place] Phon e Number [facility] [address] [place] [address] documented in this encounter Visit Diagnoses Not on filedocumented in this encounter Care Teams Flower Buncher Or Picker Relationship Specialty Start Date End Date Katia Mccallum PA-C PCP - General 05/02/[address] [place] [id number] documented as of this encounter
--- OUTSIDE RECORDS SUMMARY | 2021-09-28 02:19 | XMS_ITS | Encounter Summary ---
:1950 Author Organization [facility] Address [address] [place] [address] Care Team Providers Name Role Phone Katia Mccallum PA-C Primary Care Provider [phone] Encounter Details Date Type Department Care Team Description 09/26/2020 Results Only [facility] Rowan Abad NP [phone] [place] [phone] (Wo rk) Social History Tobacco Use [...] Associated Comments Diagnosis COMPLETE BLOOD COUNT Routine 09/26/2020 14:33 Res ults for this AND DIFFERENTIAL EDT procedure a re in the results section. MAGNESIUM Routine 09/26/2020 14:33 Results for this EDT procedure are i n the results section. BASIC METABOLIC PANEL Routine 09/26/2020 14:33 Re sults for this (BMP) EDT procedure are i n the results section. documented in this encounter Results (ABNORMAL) MAGNESIUM (09/26/2020 14:33 EDT) Pathologist Sig nature Magnesium 1.7 (L) 1.8 - 2.4 mg/dl [facility] Specimen Performing Organization Address [facility] Phon e [facility] [address] [place] [address] (ABNORMAL) BASIC METABOLIC PANEL (BMP) (09/26/2020 14:33 EDT) Sodium 131 (L) 136 - 145 mEq/L [facility] Potassium 4.2 3.5 - 5.1 mEq/L [facility] Chloride 96 96 - 107 mEq/L [facility] CO2 Total 30.9 21 - 32 mEq/L [facility] Anion Gap 3.1 mEq/L [facility] BUN 10 7 - 25 mg/dl [facility] Creatinine 0.82 0.70 - 1.30 [facility] mg/dl [facility] Estimated GFR >60 >60 [facility] Comment: [facility] EGFR UNITS: mL/min/1.73 m 2 CKD-EPI Equation used to calculate. Glucose 111 (H) 74 - 106 mg/dl [facility] Calcium 8.6 8.5 - 10.1 [facility] mg/dl [facility] Specimen Performing Organization Address [facility] Phon e Number [facility] [address] [place] [address] (ABNORMAL) COMPLETE BLOOD COUNT AND DIFFERENTIAL (09/26/2020 14:33 EDT) WBC 7.3 4.0 - 10.5 10 [facility] 3/uL [place] [facility] RBC 3.30 (L) 4.70 - 6.00 10 [facility] 6/uL [place] [facility] Hemoglobin 11.2 (L) 13.5 - 18.0 g/dL [facility] HCT 32.0 (L) 42.0 - 52.0 % [facility] MCV 97.0 78 - 100 fL [facility] MCH 33.9 (H) 27 - 31 pg [facility] MCHC 35.0 32 - 37 g/dL [facility] RDW-CV - PMC 11.7 <14.7 % [facility] PLATELET COUNT - 291 150 - 450 10 3/uL [facility] MPV 11.0 9.2 - 12.0 fL [facility] NEUTROPHILS % 59.3 % [facility] (AUTO) [facility] LYMPHOCYTES % 23.9 % [facility] (AUTO) [facility] MONOCYTES % (AUTO) 12.3 % [facility] EOSINOPHILS % 2.9 NOT ESTABLISHED % [facility] (AUTO) [facility] BASOPHILS % (AUTO) 1.0 % [facility] Immature 0.6 % [facility] Granulocyte % [facility] (Auto) NUCLEATED RBC % 0.0 % [facility] (AUTO) [facility] NEUTROPHILS # 4.3 1.5 - 6.6 10 3/uL [facility] (AUTO) [facility] LYMPHOCYTES # 1.7 1.0 - 3.5 10 3/uL [facility] (AUTO) [facility] MONOCYTES # (AUTO) 0.9 <1.0 10 3/uL [facility] EOSINOPHILS # 0.2 <0.7 10 3/uL [facility] (AUTO) [facility] BASOPHILS # (AUTO) 0.1 <0.1 10 3/uL [facility] Absolute Immature 0.04 <0.06 10 3/uL [facility] Granulocyte [place] [facility] DIFFERENTIAL Auto Differential [facility] Specimen Performing Organization Address City/State/ZIP Code Phon e Number [facility] [address] [place] [address] documented in this encounter Visit Diagnoses Not on filedocumented in this encounter Care Teams Coating Supervisor Relationship Specialty Start Date End Date Katia Mccallum PA-C PCP - General 05/02/[address] [place] [id number] documented as of this encounter
--- OUTSIDE RECORDS SUMMARY | 2021-09-28 02:19 | XMS_ITS | Encounter Summary ---
:1950 Author Organization [facility] Address [address] [place] [address] Care Team Providers Name Role Phone Katia Mccallum PA-C Primary Care Provider [phone] Encounter Details Date Type Department Care Team Description 08/19/2020 Results Only [facility] [address] [place] [phone] (Wo rk) Social History Tobacco Use Types [...] Name Priority Date/Time Associated Diagnosis Comme nts BASIC METABOLIC Routine 08/19/2020 7:10 EDT Resul ts for this PANEL (BMP) procedure are i n the results section. documented in this encounter Results (ABNORMAL) BASIC METABOLIC PANEL (BMP) (08/19/2020 7:10 EDT) Sodium 134 (L) 136 - 145 mEq/L [facility] Potassium 3.5 3.5 - 5.1 mEq/L [facility] Chloride 99 96 - 107 mEq/L [facility] CO2 Total 29.4 21 - 32 mEq/L [facility] Anion Gap 5.6 mEq/L [facility] BUN 8 7 - 25 mg/dl [facility] Creatinine 0.48 (L) 0.70 - 1.30 [facility] mg/dl [place] [facility] Estimated GFR >60 >60 [facility] Comment: [facility] EGFR UNITS: mL/min/1.73 m 2 CKD-EPI Equation used to calculate. Glucose 93 74 - 106 mg/dl [facility] Calcium 8.3 (L) 8.5 - 10.1 [facility] mg/dl [place] [facility] Specimen Performing Organization Address City/State/ZIP Code Phon e Number [facility] [address] [place] [address] documented in this encounter Visit Diagnoses Not on filedocumented in this encounter Care Teams Scow Hand Relationship Specialty Start Date End Date Ktaia Mccallum PA-C PCP - General 05/02/[address] [place] [id number] documented as of this encounter
--- OUTSIDE RECORDS SUMMARY | 2021-09-28 02:19 | XMS_ITS | Encounter Summary ---
:1950 Author Organization [facility] Address [address] [place] [address] Care Team Providers Name Role Phone Katia Mccallum PA-C Primary Care Provider [phone] Encounter Details Date Type Department Care Team Description 09/02/2020 Results Only [facility] Rowan Abad NP [phone] [place] [phone] (Wo rk) Social History Tobacco Use [...] Associated Comments Diagnosis CREATININE WITH GFR Routine 09/02/2020 6:18 EDT R esults for this - PMC procedure are i n the results section. PLATELET COUNT Routine 09/02/2020 6:18 EDT Result s for this procedure are i n the results section. documented in this encounter Results (ABNORMAL) CREATININE WITH GFR - PMC (09/02/2020 6:18 EDT) Creatinine 0.61 (L) 0.70 - 1.30 [facility] mg/dl [facility] Estimated GFR >60 >60 [facility] Comment: [facility] EGFR UNITS: mL/min/1.73 m 2 CKD-EPI Equation used to calculate. Specimen Performing Organization Address City/[facility] Phon e Number [facility] [address] [place] [address] PLATELET COUNT (09/02/2020 6:18 EDT) Pathologist Sig nature PLATELET COUNT - PMC 247 150 - 450 10 [facility] 3/uL [facility] Specimen Narrative [facility] - 09/02/2020 7 :06 EDT Comment ENOXAPARIN MONITORING Performing Organization Address City/[facility]/ZIP [facility] Phon e Number [facility] [address] [place] [address] documented in this encounter Visit Diagnoses Not on filedocumented in this encounter Care Teams Pairer Inspector Relationship Specialty Start Date End Date Katia Mccallum PA-C PCP - General 05/02/[address] [place] [id number] documented as of this encounter
--- OUTSIDE RECORDS SUMMARY | 2021-09-28 02:19 | XMS_ITS | Encounter Summary ---
:1950 Author Organization [facility] Address [address] [place] [address] Care Team Providers Name Role Phone Katia Mccallum PA-C Primary Care Provider [phone] Reason for Visit Reason Onset Date Comments Discuss Possible Transfer 06/20/2021 Encounter Details Date Type Department Care Team Description 06/20/2021 Telephone [facility] Amos Romero, Discuss Possible [address] [address] [place], [place] [phone] [phone] (Wo rk) Social History Tobacco Use Types [...] or older) documented as of this encounter Miscellaneous Notes Telephone Encounter - Amos Romero MD - 06/20/2021 1415 EDT PPS Call Requesting Facility: [facility] Requesting Provider: Dr. Alegria Date: 06/20/21 Time of Call: 14:15 History: 70yoM from nursing facility hx of complete heart block s/p PPM, COPD, chronic etoh abuse who presented with 1-2 weeks colicky abdominal pain. He specifically does not complain of chest pain nor respiratory issues. Has been reticent to undergoing surgeries in the past (per chart review) but apparently is willing to undergo laparoscopic cholecystectomy. Vitals: 112/64, pulse 63, rr 16, afebrile, SaO2 94 on RA Labs: Sodium 123 K 3.7 BUN 39 Cr 1 Wbc 14k Hgb 11.3 Plt 271 AST 61 ALT 121 Bili pending (?) Alk phos [address] a/p with contrast: pericholecystitic fluid+inflammation consistent with acute cholecystitis, alsoincidentally noted L complex-appearing pleural effusion (per read from imaging 08/08/20 from [facility], thisis chronic) and R iliac + gluteal fluid collections (also noted previously). Blood cultures not drawn, will obtain now Abx: Initiated on unasyn Surgery consulted at their facility, they are reportedly not comfortable taking the patient to the OR due to anesthesia related issues. Plan: -the patient was not accepted to medicine for transfer, I requested that Dr. Alegria re-engage the general surgeons at their facility given the chronicity lack of associated symptosm for the incidental findings on CT as I'm not entirely clear why they would posit a contraindication to undergoing generalanesthesia -should their surgeons continue to have concerns, they should discuss the case with ACS here Amos Romero MD Internal Medicine Hospitalist documented in this encounter Plan of Treatment Not on filedocumented as of this encounter Visit Diagnoses Not on filedocumented in this encounter Care Teams Treatment Coordinator Relationship Specialty Start Date End Date Katia Mccallum PA-C PCP - General 05/02/[address] [place] [id number] documented as of this encounter
--- OUTSIDE RECORDS SUMMARY | 2021-09-28 02:19 | XMS_ITS | Encounter Summary ---
:1950 Author Organization [facility] Address [address] [place] [address] Care Team Providers Name Role Phone Katia Mccallum PA-C Primary Care Provider [phone] Encounter Details Date Type Department Care Team Description 08/25/2020 Lab Requisition [facility] Outr Resulting Lab, Pathology & Laboratory Provider [facility] [address] [place] [id number] Social History Tobacco Use Types Packs/Day Years [...] Name Priority Date/Time Associated Diagnosis Comme nts HERPES SIMPLEX Routine 08/25/2020 14:15 Results f or this VIRUS MOLECULAR EDT procedure ar e in DETECTION, PCR the results section. documented in this encounter Results HERPES SIMPLEX VIRUS MOLECULAR DETECTION, PCR (08/25/2020 14:15 EDT) Pathologist Sig nature Herpes Simplex Virus Negative Negative [facility] Molecular Detection 1, LABORATORY SERVICE S PCR Herpes Simplex Virus Negative Negative [facility] Molecular Detection 2, LABORATORY SERVICE S PCR Specimen Swab - Entire upper limb (body structure ) Performing Organization Address City/State/ZIP Code Phon e Number [facility] [address] [place] [address] SERVICES documented in this encounter Visit Diagnoses Not on filedocumented in this encounter Care Teams Cnc Grinder Relationship Specialty Start Date End Date Katia Mccallum PA-C PCP - General 05/02/[address] [place] [id number] documented as of this encounter
--- OUTSIDE RECORDS SUMMARY | 2021-09-28 02:19 | XMS_ITS | Encounter Summary ---
:[address] [facility] Address [address] [place] [address] Care Team Providers Name Role Phone Katia Mccallum PA-C Primary Care Provider [phone] Encounter Details Date Type Department Care Team Description 06/23/2021 Lab Requisition [facility] Outr Resulting Lab, Pathology & Laboratory Provider [facility] [address] [place] [address] Social History Tobacco Use Types Packs/Day Years Used Date Never Assessed Sex Assigned at Date Recorded Not on [...] Name Priority Date/Time Associated Diagnosis Comme nts OSMOLALITY, URINE Routine 06/23/2021 4:00 EDT Res ults for this procedure are i n the results section. documented in this encounter Results OSMOLALITY, URINE (06/23/2021 4:00 EDT) Pathologist Sig nature Osmolality, Urine 509 150-1,150 mOsm/kg [facility] Specimen Urine - Urine specimen collection, clean catch (procedure) Performing Organization Address City/State/ZIP Code Phon e Number [facility] [address] [place] [address] SERVICES documented in this encounter Visit Diagnoses Not on filedocumented in this encounter Care Teams Deputy Commonwealth'S Attorney Relationship Specialty Start Date End Date Katia Mccallum PA-C PCP - General 05/02/[address] [place] [id number] documented as of this encounter
--- OUTSIDE RECORDS SUMMARY | 2021-09-28 02:19 | XMS_ITS | Encounter Summary ---
:1950 Author Organization [facility] Address [address] [place] [address] Care Team Providers Name Role Phone Katia Mccallum PA-C Primary Care Provider [phone] Encounter Details Date Type Department Care Team Description 08/13/2020 Lab Requisition [facility] Outr Resulting Lab, Pathology & Laboratory Provider [facility] [address] [place] [phone] Social History Tobacco Use Types Packs/Day Years [...] Name Priority Date/Time Associated Diagnosis Comme nts FECAL BACTERIAL Routine 08/11/2020 14:50 Results for this PATHOGENS BY PCR EDT procedure a re in the results section. documented in this encounter Results FECAL BACTERIAL PATHOGENS BY PCR (08/11/2020 14:50 EDT) Pathologist Sig nature Salmonella PCR Negative Negative [facility] Shigella/Enteroinvasive Negative Negative [facility] R E. coli LABORATORY SERVICES HN LAB CAMPYLOBACTER PCR Negative Negative [facility] ER LABORATORY SERVICES Shiga Toxin PCR Negative Negative [facility] Specimen Feces - Specimen from rectum (specimen) Performing Organization Address City/State/ZIP Code Phon e Number [facility] [address] [place] [address] SERVICES documented in this encounter Visit Diagnoses Not on filedocumented in this encounter Care Teams Painter Shipyard Relationship Specialty Start Date End Date Katia Mccallum PA-C PCP - General 05/02/[address] [place] [id number] documented as of this encounter
--- OUTSIDE RECORDS SUMMARY | 2021-09-28 02:19 | XMS_ITS | Encounter Summary ---
:1950 Author Organization [facility] Address [address] [place] [address] Care Team Providers Name Role Phone Katia Mccallum PA-C Primary Care Provider [phone] Encounter Details Date Type Department Care Team Description 09/10/2020 Results Only [facility]- [facility] Rowan Abad NP [phone] [place] [phone] (Wo rk) Social History Tobacco Use [...] Associated Comments Diagnosis CREATININE WITH GFR Routine 09/10/2020 5:40 EDT R esults for this - PMC procedure are i n the results section. PLATELET COUNT Routine 09/10/2020 5:40 EDT Result s for this procedure are i n the results section. documented in this encounter Results PLATELET COUNT (09/10/2020 5:40 EDT) Pathologist Sig nature PLATELET COUNT - [facility] 250 150 - 450 10 [facility] 3/uL [facility] Specimen Narrative [facility] - 09/10/2020 6 :49 EDT Comment ENOXAPARIN MONITORING Performing Organization Address City/[facility] Code Phon e Number [facility] [address] [place] [address] (ABNORMAL) CREATININE WITH GFR - PMC (09/10/2020 5:40 EDT) Creatinine 0.57 (L) 0.70 - 1.30 [facility] mg/dl [facility]ENTER [facility] Estimated GFR >60 >60 [facility] Comment: CENTER LAB EGFR UNITS: mL/min/1.73 m 2 CKD-EPI Equation used to calculate. Specimen Performing Organization Address [facility] [address] [place] [address] documented in this encounter Visit Diagnoses Not on filedocumented in this encounter Care Teams Flying Instructor Relationship Specialty Start Date End Date Katia Mccallum PA-C PCP - General 05/02/17 [address] [place] [id number] documented as of this encounter
--- OUTSIDE RECORDS SUMMARY | 2021-09-28 02:19 | XMS_ITS | Encounter Summary ---
:1950 Author Organization [facility] Address [address] [place] [address] Care Team Providers Name Role Phone Katia Mccallum PA-C Primary Care Provider [phone] Reason for Visit Reason Comments Diarrhea Extremity Weakness Alcohol Problem Palliative Care Symptom Management Encounter Details Date Type Department Care Team Description 08/25/[address] [facility] Cooper Stinson MD Frailty (Primary Dx); - [facility] [address] [place] ETOH abus e; Center Palliative [address] Grief; [facility] Palliative care by georgia Shaw Christian [address] [place] [phone] (Wo rk) Social History Tobacco Use [...] or older) documented as of this encounter Progress Notes Keara Stinson MD - 08/25/2020 1610 EDT Palliative Care Consultation Date of Service: 08/25/2020 Referring Service: Nafisa Abad APRN Reason for Referral: Advance Care Planing and Psychosocial Support Assessment Tim is a 69 yo man with complete heart block s/p PPM (in 2018, prior to that time limited primary care), COPD, and chronic ETOH use who was admitted to [facility] with weakness, diarrhea, and regular ETOH consumption. His acute issues have resolved though he remains deconditioned and ambivalent about participating in rehabilitative efforts. Palliative care consulted to provide support for chronic serious illness and advance care planning. Tim has significant and complicated grief which was clear in our visit today. He has had multiple traumatic losses throughout his life, but especially in the past year. His chronic alcohol use likely intensified in this context. His ETOH use and chronic health issues are limiting his ability to care for himself. By team report, he is no longer able to return to his prior living situation. Case management is actively working on options for him, options depend on his functional status. He participated in more activity today, walking and exerting himself, with urging from PT and OT (team support and structured approach is probably very helpful to him). He would benefit from grief counseling though I could also imagine he might not be receptive to formal psychotherapy. A bereavement rib trim separator through [facility] may be a good fit as well. Re: his advance directive. I did call his PCP office in [place], they have no record of previous Advance directive. Today's visit as spent getting to know Tim and acknowledging his grief. Tim did not seem ready to discuss assigning a HCA or discussing advance care planning. 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 Could trial diclofenac gel PRN as well (1 %, TID topically PRN) - continue rehab effort - he is a full code Thank you for involving us in Tim's care. See Annette Rider's Palliative Care Social [facility] for additional information. Present for Visit: Tim, me Narrative: Met with Tim in his room, explained palliative care as an extra layer of support to helpwith symptom management and next steps with chronic or serious illness. He was receptive to talking.Asked how things had been going for him during this hospital stay, he described feeling very frustrated at his Whitney (he calls her his NAJMA though suspect he means DIL), who was expected to visit yesterday with Tim's grandson and did not show up. Tim then shared a bit about his family situation and how important his 9 yo grandson is to him. His son Tyrese (grandson's father) recently. Tim becametearful discussing Tyrese- how he was told to stop drinking and how Tim himself called the ambulance the day he . Tim has last two other sons as well (all sons in their 40s). Tim reflects on the many losses he has had in the past year- multiple cousins, 2 sons, and his mother. When I ask what has helped him get through this, he says something along the lines of just dealing with it. He also says that if he were not in the hospital, he'd be drinking a half gallon of liquor right now. Not drinking in the hospital has not bothered him much, he denies feeling stress around not drinking, denies withdrawal symptoms. He ambulated in the halls today- which felt good to be up but he also became fatigued and now has knee pain. He has a new rash on his left arm as well, itchy, burning. He has a pacemaker, states that everything seemed to change for him after he had his heart attack and was transferred to [place]. He has had several cardiac issues since. He is originally from [place] and lived in the [facility] area until 2018 when his medical issues became more acute. S shannan then, he has lived in [place] [place] [facility], had lived with his son Tyrese until his and more recently living with Tyrese's partner Whitney. He was raised on a farm in [place] with 7 siblings. 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 He stopped working because of health issues. When I ask him about supports in his life, for instance who might be an emergency contact, he says quickly They are all . He does name his brother as a person in his family whom he is connected with though does not elaborate. When I ask his thoughts or worries about the future, he tells me he does not think about the future. Burdensome Symptoms Pain: Knee pain after ambulation Dyspnea: on exertion Nausea: none Constipation: has had diarrhea, took immodium, now having daily BM Fatigue/Debility: Significant Emotional Distress: Significant grief Spiritual/Existential Distress: did not assess Objective: Chronically ill man, he is very tearful throughout our visit, at times seemed to have effortful breathing Paucity of words though shared significant details about his life today Palliative Performance Scale (current) Unable to work; able to live at home and care for most personal needs; varying amount of assistance needed 50 = Requires considerable assistance and frequent medical care Serious Illness Conversation Current Information Preferences: full Goals Identified: Restorative, life extension with consideration for aggressive therapies if indicated Fears and Worries: complicated grief Limitations/Current Code Status: Full Health Care Proxy Documented?: No Not necessary at this time, will continue to evaluate (COLST) Keara Stinson MD 08/25/2020 16:11 Site of Visit: [facility] I spent a total of 55 minutes in direct floor time and 35 minutes of that time was spent in counseling with pt/family about goals and plan of care and in coordination of care as documented above. documented in this encounter Plan of Treatment Not on filedocumented as of this encounter Visit Diagnoses Diagnosis Frailty - Primary Senility without mention of psychosis ETOH abuse Alcohol abuse, unspecified Grief Adjustment disorder with depressed mood Palliative care by specialist documented in this encounter Care Teams Server Software Engineer Relationship Specialty Start Date End Date Katia Mccallum PA-C PCP - General 05/02/17 [address] [place] [id number] documented as of this encounter
--- OUTSIDE RECORDS SUMMARY | 2021-09-28 02:19 | XMS_ITS | Encounter Summary ---
:1950 Author Organization Address [address] [place] [address] Care Team Providers Name Role Phone Katia Mccallum PA-C Primary Care Provider [phone] Encounter Details Date Type Department Care Team Description 08/20/2020 Results Only [facility] - Junior Ruiz [facility] [address] [place] [phone] (Wo rk) Social History Tobacco Use Types [...] Name Priority Date/Time Associated Diagnosis Comme nts COMPLETE BLOOD Routine 08/20/2020 6:50 EDT Result s for this COUNT procedure are i n the results section. MAGNESIUM Routine 08/20/2020 6:50 EDT Results for this procedure are i n the results section. BASIC METABOLIC Routine 08/20/2020 6:50 EDT Resul ts for this PANEL (BMP) procedure are i n the results section. documented in this encounter Results (ABNORMAL) MAGNESIUM (08/20/2020 6:50 EDT) Pathologist Sig nature Magnesium 1.6 (L) 1.8 - 2.4 mg/dl [facility] Specimen Performing Organization Address [facility] Phon e Number [facility] [address] [place] [address] (ABNORMAL) BASIC METABOLIC PANEL (BMP) (08/20/2020 6:50 EDT) Sodium 134 (L) 136 - 145 mEq/L [facility] Potassium 3.6 3.5 - 5.1 mEq/L [facility] Chloride 100 96 - 107 mEq/L [facility] CO2 Total 28.7 21 - 32 mEq/L [facility] Anion Gap 5.3 mEq/L [facility] BUN 7 7 - 25 mg/dl [facility] Creatinine 0.48 (L) 0.70 - 1.30 [facility] mg/dl CENTER [facility] Estimated GFR >60 >60 [facility] Comment: CENTER LAB EGFR UNITS: mL/min/1.73 m 2 CKD-EPI Equation used to calculate. Glucose 91 74 - 106 mg/dl [facility] Calcium 8.3 (L) 8.5 - 10.1 [facility] mg/dl [facility] Specimen Performing Organization Address [facility]/ZIP Code Phon e Number [facility] [address] [place] [address] (ABNORMAL) COMPLETE BLOOD COUNT (08/20/2020 6:50 EDT) Pathologist Sig nature WBC 5.8 4.0 - 10.5 10 [facility] 3/[facility] LAB RBC 2.96 (L) 4.70 - 6.00 10 [facility] 6/uL [facility] Hemoglobin 10.5 (L) 13.5 - 18.0 [facility] g/dL CENTER LAB HCT 29.8 (L) 42.0 - 52.0 % [facility] MCV 100.7 (H) 78 - 100 fL [facility] MCH 35.5 (H) 27 - 31 pg [facility] MCHC 35.2 32 - 37 g/dL [facility] RDW-CV - PMC 14.7 <14.7 % [facility] PLATELET COUNT - PMC 253 150 - [address] LAB MPV 10.1 9.2 - 12.0 fL [facility] Specimen Performing Organization Address City/State/ZIP Code Phon e Number [facility] [address] [place] [address] documented in this encounter Visit Diagnoses Not on filedocumented in this encounter Care Teams Control Engineer Relationship Specialty Start Date End Date Katia Mccallum PA-C PCP - General 05/02/[address] [place] [id number] documented as of this encounter
--- OUTSIDE RECORDS SUMMARY | 2021-09-28 02:19 | XMS_ITS | Encounter Summary ---
:1950 Author Organization [facility] Address [address] [place] [address] Care Team Providers Name Role Phone Katia Mccallum PA-C Primary Care Provider [phone] Encounter Details Date Type Department Care Team Description 08/11/2020 Results Only [facility] [address] [place] [address] [place] [address] [place], [place] [phone] (Wo rk) Social History Tobacco Use [...] procedure a re in the results section. OVA/PARASITE EXAM Routine 08/11/2020 14:50 Result s for this EDT procedure are i n the results section. documented in this encounter Results OVA/PARASITE EXAM (08/11/2020 14:50 EDT) PARASITE ID - PMC SEE NOTES [facility] Comment: CENTER [facility] RESULT: No ova and parasites seen. Source:stool (If Cryptosporidium, Cyclospora, or Microsporidium are suspected, specific tests must be requested.) Single negative specimen does not rule out the possibility of a parasitic infection. Test performed [place] [id number] Specimen Narrative [facility] - 08/14/2020 1 5:34 EDT stool Performing Organization Address [facility] Phon e Number [facility] [address] [place] [address] FECAL BACTERIAL PATHOGENS BY PCR (08/11/2020 14:50 EDT) Salmonella PCR Negative Negative [facility] Shigella/Enteroinvasi Negative Negative [facility] ve E. coli CENTER [facility] HN LAB CAMPYLOBACTER Negative Negative [facility] PCR [facility] Shiga Toxin PCR Negative Negative [facility] Comment: CENTER LAB Test performed or referred by The [address] [address] Specimen Performing Organization Address [facility] Phon e Number [facility] [address] [place] [address] documented in this encounter Visit Diagnoses Not on filedocumented in this encounter Care Teams Remote Encoding Center Manager Relationship Specialty Start Date End Date Katia Mccallum PA-C PCP - General 3/2/[address] [place] [id number] documented as of this encounter
--- OUTSIDE RECORDS SUMMARY | 2021-09-28 02:19 | XMS_ITS | Encounter Summary ---
:[address] [facility] Address [address] [place] [address] Care Team Providers Name Role Phone Katia Mccallum PA-C Primary Care Provider [phone] Encounter Details Date Type Department Care Team Description 08/20/2020 Results Only [facility] [address] [place] [address] [place] [address] [place], [place] [phone] (Wo rk) Social History Tobacco Use [...] Comme nts ADD ON TEST REQUEST Routine 08/20/2020 12:51 Resu lts for this - [facility] EDT procedure are i n the results section. documented in this encounter Results ADD ON TEST REQUEST - [facility] (08/20/2020 12:51 EDT) Pathologist Sig nature Special Requests ADD ON DONE [facility] Comment: CENTER LAB All tests (see tests in sample comments) have been add ed as requested. Specimen Narrative [facility] - 08/20/2020 1 2:58 EDT today on the med/surg Magnesium Performing Organization Address City/State/[facility] Code Phon e Number [facility] [address] [place] [address] documented in this encounter Visit Diagnoses Not on filedocumented in this encounter Care Teams Cardiac Rehabilitation Program Director Relationship Specialty Start Date End Date Katia Mccallum PA-C PCP - General 05/02/17 [address] [place] [id number] documented as of this encounter
--- OUTSIDE RECORDS SUMMARY | 2021-09-28 02:19 | XMS_ITS | Encounter Summary ---
:1950 Author Organization [facility] Address [address] [place] [address] Care Team Providers Name Role Phone Katia Mccallum PA-C Primary Care Provider [phone] Reason for Visit Reason Onset Date Comments Appointment Related 06/22/2020 Encounter Details Date Type Department Care Team Description 06/22/2020 Telephone [facility] Cherie Browne MD Appointment Related Cardiothoracic Surgery - [address] [place] [address], [address], [address] [place], [place] [address] [place] [address] [phone] (Wo rk) Social History Tobacco Use [...] this encounter Miscellaneous Notes Telephone Encounter - Alma Dhillon - 06/22/[address] Browne, I have cancelled this patient's surgery case for 06/26. The patient refuses the procedure at this time. documented in this encounter Plan of Treatment Not on filedocumented as of this encounter Visit Diagnoses Not on filedocumented in this encounter Care Teams Journeyman Glazier Relationship Specialty Start Date End Date Katia Mccallum PA-C PCP - General 05/02/17 [address] [place] [id number] documented as of this encounter
--- OUTSIDE RECORDS SUMMARY | 2021-09-28 02:19 | XMS_ITS | Encounter Summary ---
:1950 Author Organization [facility] Address [address] [place] [address] Care Team Providers Name Role Phone Katia Mccallum PA-C Primary Care Provider [phone] Encounter Details Date Type Department Care Team Description 09/05/2020 Results Only [facility]- [facility] Rowan Abad NP [phone] [place] [phone] (Wo rk) Social History Tobacco Use [...] Associated Comments Diagnosis COMPLETE BLOOD COUNT Routine 09/05/2020 14:30 Res ults for this AND DIFFERENTIAL EDT procedure a re in the results section. MAGNESIUM Routine 09/05/2020 14:30 Results for this EDT procedure are i n the results section. BASIC METABOLIC PANEL Routine 09/05/2020 14:30 Re sults for this (BMP) EDT procedure are i n the results section. documented in this encounter Results (ABNORMAL) COMPLETE BLOOD COUNT AND DIFFERENTIAL (09/05/2020 14:30 EDT) WBC 6.4 4.0 - 10.5 10 [facility] 3/uL CENTER LAB RBC 3.40 (L) 4.70 - 6.00 10 [facility] 6/[facility] LAB Hemoglobin 11.6 (L) 13.5 - 18.0 g/dL [facility] HCT 33.9 (L) 42.0 - 52.0 % [facility] MCV 99.7 78 - 100 fL [facility] MCH 34.1 (H) 27 - 31 pg [facility] MCHC 34.2 32 - 37 g/dL [facility] RDW-CV - PMC 13.1 <14.7 % [facility] PLATELET COUNT - 253 150 - 450 10 3/uL [facility] MPV 10.9 9.2 - 12.0 fL [facility] NEUTROPHILS % 57.6 % [facility] (AUTO) - [facility] CENTER LAB LYMPHOCYTES % 25.0 % [facility] (AUTO) - [facility] CENTER LAB MONOCYTES % (AUTO) 13.3 % [facility] EOSINOPHILS % 2.7 NOT ESTABLISHED % [facility] (AUTO) - [facility] CENTER LAB BASOPHILS % (AUTO) 1.1 % [facility] Immature 0.3 % [facility] Granulocyte % CENTER [facility] (Auto) NUCLEATED RBC % 0.0 % [facility] (AUTO) - [facility] LAB NEUTROPHILS # 3.7 1.5 - 6.6 10 3/uL [facility] (AUTO) - [facility] LAB LYMPHOCYTES # 1.6 1.0 - 3.5 10 3/uL [facility] (AUTO) - [facility] LAB MONOCYTES # (AUTO) 0.9 <1.0 10 3/uL [facility] LAB EOSINOPHILS # 0.2 <0.7 10 3/uL [facility] (AUTO) - [facility] LAB BASOPHILS # (AUTO) 0.1 <0.1 10 3/uL [facility] Absolute Immature 0.02 <0.06 10 3/uL [facility] Granulocyte [facility] DIFFERENTIAL Auto Differential [facility] Specimen Performing Organization Address [facility] [address] [place] [address] MAGNESIUM (09/05/2020 14:30 EDT) Pathologist Sig nature Magnesium 1.8 1.8 - 2.4 mg/dl [facility] Specimen Performing Organization Address [facility] LAB [address] [place] [address] (ABNORMAL) BASIC METABOLIC PANEL (BMP) (09/05/2020 14:30 EDT) Sodium 132 (L) 136 - 145 mEq/L [facility] Potassium 4.3 3.5 - 5.1 mEq/L [facility] Chloride 99 96 - 107 mEq/L [facility] CO2 Total 26.5 21 - 32 mEq/L [facility] Anion Gap 6.5 mEq/L [facility] BUN 12 7 - 25 mg/dl [facility] Creatinine 0.60 (L) 0.70 - 1.30 [facility] mg/dl [facility] Estimated GFR >60 >60 [facility] Comment: CENTER LAB EGFR UNITS: mL/min/1.73 m 2 CKD-EPI Equation used to calculate. Glucose 100 74 - 106 mg/dl [facility] Calcium 8.6 8.5 - 10.1 [facility] mg/dl [facility] Specimen Performing Organization Address [facility] [address] [place] [address] documented in this encounter Visit Diagnoses Not on filedocumented in this encounter Care Teams Sleever Relationship Specialty Start Date End Date Katia Mccallum PA-C PCP - General 05/02/17 [address] [place] [id number] documented as of this encounter
--- OUTSIDE RECORDS SUMMARY | 2021-09-28 02:19 | XMS_ITS | Encounter Summary ---
:1950 Author Organization [facility] Address [address] [place] [address] Care Team Providers Name Role Phone Katia Mccallum PA-C Primary Care Provider [phone] Encounter Details Date Type Department Care Team Description 08/13/2020 Lab Requisition [facility] Outr Resulting Lab, Pathology & Laboratory Provider [facility] [address] [id number] Social History Tobacco Use Types Packs/Day Years [...] Name Priority Date/Time Associated Diagnosis Comme nts OVA/PARASITE EXAM Routine 08/11/2020 14:50 Result s for this EDT procedure are i n the results section. documented in this encounter Results OVA/PARASITE EXAM (08/11/2020 14:50 EDT) Pathologist Sig nature Parasite No ova and parasites [facility] seen. LABORATORY SERVICES Specimen Feces - Specimen from rectum (specimen) Narrative [facility] LABORATORY SERVICES - 08/14/2020 11:44 EDT (If Cryptosporidium, Cyclospora, or Micr osporidium are suspected, specific tests must be requested.) Single negative specimen does not rule out the possibility of a parasitic infection. Performing Organization Address City/State/ZIP Code Phon e Number [facility] LABORATORY [address] [place] [address] SERVICES documented in this encounter Visit Diagnoses Not on filedocumented in this encounter Care Teams Pulpwood Cutter Relationship Specialty Start Date End Date Katia Mccallum PA-C PCP - General 05/02/17 [address] [facility] [address] documented as of this encounter
--- OUTSIDE RECORDS SUMMARY | 2021-09-28 02:19 | XMS_ITS | Encounter Summary ---
:[address] [facility] Address [address] [place] [address] Care Team Providers Name Role Phone Katia Mccallum PA-C Primary Care Provider [phone] Encounter Details Date Type Department Care Team Description 08/29/2020 Results Only [facility] Rowan Abad NP [phone] [place] [phone] (Wo rk) Social History Tobacco Use [...] Associated Comments Diagnosis CREATININE WITH GFR Routine 08/29/2020 5:05 EDT R esults for this - PMC procedure are i n the results section. PLATELET COUNT Routine 08/29/2020 5:05 EDT Result s for this procedure are i n the results section. documented in this encounter Results (ABNORMAL) CREATININE WITH GFR - PMC (08/29/2020 5:05 EDT) Creatinine 0.61 (L) 0.70 - 1.30 [facility] mg/dl [facility] Estimated GFR >60 >60 [facility] Comment: [facility] EGFR UNITS: mL/min/1.73 m 2 CKD-EPI Equation used to calculate. Specimen Performing Organization Address City/[facility]/ZIP [facility] [place] Number [facility] [address] [place] [address] PLATELET COUNT (08/29/2020 5:05 EDT) Pathologist Sig nature PLATELET COUNT - [facility] 324 150 - 450 10 [facility] 3/uL [facility] Specimen Narrative [facility] - 08/29/2020 5 :41 EDT Comment ENOXAPARIN MONITORING Performing Organization Address City/[facility]/ZIP [facility] [place] [facility] [address] [place] [address] documented in this encounter Visit Diagnoses Not on filedocumented in this encounter Care Teams Wet Mix Operator Relationship Specialty Start Date End Date Katia Mccallum PA-C PCP - General 05/02/[address] [place] [address] documented as of this encounter
--- OUTSIDE RECORDS SUMMARY | 2021-09-28 02:19 | XMS_ITS | Encounter Summary ---
:1950 Author Organization [facility] Address [address] [place] [address] Care Team Providers Name Role Phone Katia Mccallum PA-C Primary Care Provider [phone] Reason for Visit (Routine/Next Available) - New Request Specialty Diagnoses / Procedures Referred By Contact Refer red To Contact Procedures Unknown, Provider, CT OUTSIDE IMAGES BODY Phone: Referral ID Status Reason Start Date Expiration Date Visits V isits Requested Authorized [id number] New Request 06/20/2021 1 1 Encounter Details Date Type Department Care Team Description 06/20/2021 Hospital Encounter [facility] Secondary Reads [place] Social History Tobacco Use Types Packs/Day Years [...] or older) documented as of this encounter Medications at Time of Discharge Medication Sig Dispensed Refills Start Date End Date acetaminophen (TYLENOL) 500 Take 1,000 mg by 0 mg tablet mouth 2 times daily. colchicine (COLCRYS) 0.6 mg Take 1 Tab by mouth 60 Tab 0 05/27/2017 tablet 2 times daily. ibuprofen (MOTRIN) 200 mg Take 180 mg by 0 tablet mouth 2 times daily. metoprolol (LOPRESSOR) 25 mg Take 1 Tab by mouth 60 Tab 3 06/16/2017 tablet 2 times daily. omeprazole (PRILOSEC) 20 mg Take 20 mg by mouth 0 capsule daily. predniSONE (DELTASONE) 10 mg Take 30mg (20+10) 32 Tab 0 06/16/2017 tablet 06/17-06/30; 20mg (20) 07/01-07/14; 10mg (10) 07/15-07/28; 5mg (1/2 of 10) 07/29-08/04 predniSONE (DELTASONE) 20 mg Take 30mg (20+10) 28 Tab 0 06/16/2017 tablet 06/17-06/30; 20mg (20) 07/01-07/14; 10mg (10) 07/15-07/28; 5mg (1/2 of 10) 07/29-08/04 torsemide (DEMADEX) 20 mg Take 2 Tabs by 60 Tab 2 2017 tablet mouth daily. documented as of this encounter Discharge Disposition Disposition Code Departure Means Destination Home or Self Care documented in this encounter Plan of Treatment Not on filedocumented as of this encounter Procedures Procedure Name Priority Date/Time Associated Diagnosis Comme nts CT OUTSIDE IMAGES Routine 06/20/2021 15:36 Result s for this BODY EDT procedure are i n the results section. documented in this encounter Results CT OUTSIDE IMAGES BODY (06/20/2021 15:36 EDT) Specimen Narrative 06/20/2021 15:36 EDT This is a non-reportable exam. documented in this encounter Visit Diagnoses Not on filedocumented in this encounter Care Teams Cigar Binder Relationship Specialty Start Date End Date Katia Mccallum PA-C PCP - General 05/02/17 [address] [place], [place] [address] documented as of this encounter
--- OUTSIDE RECORDS SUMMARY | 2021-09-28 02:19 | XMS_ITS | Encounter Summary ---
:1950 Author Organization [facility] Address [address] [place] [address] Care Team Providers Name Role Phone Katia Mccallum PA-C Primary Care Provider [phone] Encounter Details Date Type Department Care Team Description 08/09/2020 Results Only [facility] Virginia Quintana MD Dermatology - [facility] [address] [address] [place], [place] [address] [id number] [place], [place] [address] [phone] Social History Tobacco Use Types Packs/Day Years [...] Associated Comments Diagnosis COMPLETE BLOOD COUNT Routine 08/09/2020 5:35 Resu lts for this AND DIFFERENTIAL EDT procedure a re in the results section. COMPREHENSIVE Routine 08/09/2020 5:35 Results for this METABOLIC PANEL (CMP) EDT proced ure are in the results section. C DIFFICILE TOXIN PCR, Routine 08/09/2020 3:24 Re sults for this F > 2 YRS - PMC EDT procedure ar e in the results section. documented in this encounter Results (ABNORMAL) COMPREHENSIVE METABOLIC PANEL (CMP) (08/09/2020 5:35 EDT) Sodium 128 (L) 136 - 145 [facility] mEq/L [facility] Potassium 3.3 (L) 3.5 - 5.1 [facility] mEq/L [facility] Chloride 90 (L) 96 - 107 [facility] mEq/L [facility] CO2 Total 27.4 21 - 32 mEq/L [facility] Anion Gap 10.6 mEq/L [facility] BUN 11 7 - 25 mg/dl [facility] Creatinine 0.71 0.70 - 1.30 [facility] mg/dl [facility] Estimated GFR >60 >60 [facility] Comment: [facility] EGFR UNITS: mL/min/1.73 m 2 CKD-EPI Equation used to calculate. Glucose 117 (H) 74 - 106 [facility] mg/dl [facility] Calcium 8.3 (L) 8.5 - 10.1 [facility] mg/dl [facility] CALCIUM,CORRECTED - 9.4 8.5 - 10.5 [facility] PMC mg/dl [facility] BILIRUBIN - PMC 1.30 (H) 0.00 - 1.00 [facility] mg/dl [facility] AST 62 (H) 15 - 37 U/L [facility] ALT 46 16 - 63 U/L [facility] Alkaline Phosphatase 114 46 - 116 U/L [facility] Total Protein 6.7 6.4 - 8.2 [facility] g/dl [facility] Albumin 2.6 (L) 3.4 - 5.0 [facility] g/dl [facility] GLOBULIN - [facility] 4.1 g/dl [facility] ALBUMIN/GLOBULIN 0.6 [facility] RATIO [facility] Specimen Performing Organization Address City/State/ZIP Code Phon e Number [facility] [address] [place] [address] (ABNORMAL) COMPLETE BLOOD COUNT AND DIFFERENTIAL (08/09/2020 5:35 EDT) WBC 10.3 4.0 - 10.[address] LAB RBC 2.98 (L) 4.70 - 6.00 [place] [address] 6[facility] LAB Hemoglobin 10.6 (L) 13.5 - 18.0 [facility] g/dL [facility] HCT 29.6 (L) 42.0 - 52.0 % [facility] MCV 99.3 78 - 100 fL [facility] MCH 35.6 (H) 27 - 31 pg [facility] MCHC 35.8 32 - 37 g/dL [facility] RDW-CV - [facility] 13.8 <14.7 % [facility] PLATELET COUNT - [facility] 179 150 - [address] LAB MPV 11.6 9.2 - 12.0 fL [facility] NEUTROPHILS % (AUTO) 84.2 % [facility] LAB LYMPHOCYTES % (AUTO) 7.2 % [facility] LAB MONOCYTES % (AUTO) - 8.0 % [facility] LAB EOSINOPHILS % (AUTO) 0.0 % [facility] LAB BASOPHILS % (AUTO) - 0.1 % [facility] LAB Immature Granulocyte 0.5 % [facility] % (Auto) [facility] NUCLEATED RBC % 0.0 % [facility] (AUTO) [facility] NEUTROPHILS # (AUTO) 8.7 (H) 1.5 - 6.[address] LAB LYMPHOCYTES # (AUTO) 0.7 (L) 1.0 - 3.[address] LAB MONOCYTES # (AUTO) - 0.8 <1.0 10 3/uL [facility] LAB EOSINOPHILS # (AUTO) 0.0 <0.7 10 3/uL [facility] LAB Absolute Immature 0.05 <0.06 10 3/uL [facility] LAB DIFFERENTIAL METHOD Auto Differential [facility] Specimen Performing Organization Address [facility]/State/ZIP Code Phon e Number [facility] [address] [place] [address] C DIFFICILE TOXIN PCR, F > 2 YRS - [facility] (08/09/2020 3:24 EDT) Specimen Narrative [facility] - 08/10/2020 6 :26 EDT ?? RUN DATE: 08/10/20 ? [facility] HN: LAB *LIVE* ? PAGE 1 ? RUN TIME: 625 ?Specimen Inquiry ? PATIENT: DAVID FARFAN ? ACCT: [id number] LOC: ??MS ? U: [id number] ? AGE/SX: 69/M ? ROOM: 138 ?RE08/09/20 ?? REG DR: ??Ester Valerio MD ? : ?1950 ?? BED: ??1 ?DIS: ? STATUS: ADM Astrid ?TLOC: ? SPEC #: [id number] ?ALEX: ? STATUS: ??COMP ? REQ #: [id number] ?RECD: 08/10/20 ? SUBM DR: Jennifer Tyson ? SOURCE: FEC-CDIF ?ENTR: 08/09/20 ? OTHR DR: Ester Valerio MD ? SPDESC: LIQUID FEC ? Katia Mccallum ? ORDERED: ??CDIF ?Procedure ? Result ?C DIFFICILE PCR,PATIENT >2 YRS ??Xenia thurston ?Toxigenic C. diff result: ?? NEGATIVE for Toxigenic C. diff by Amplified DNA PCR. ?027/NAP1/BI Strain Result ?? Presumptive NEGATIVE identification of 027/NAP1/BI ?strain. ? END OF REPORT ? Performing Organization Address City/State/ZIP Code Phon e Number [facility] [address] [place] [address] documented in this encounter Visit Diagnoses Not on filedocumented in this encounter Care Teams Crew Lead Relationship Specialty Start Date End Date Katia Mccallum PA-C PCP - General 05/02/17 [address] [place] [address] documented as of this encounter
--- OUTSIDE RECORDS SUMMARY | 2021-09-28 02:19 | XMS_ITS | Encounter Summary ---
:1950 Author Organization [facility] Address [address] [place] [address] Care Team Providers Name Role Phone Katia Mccallum PA-C Primary Care Provider [phone] Encounter Details Date Type Department Care Team Description 08/25/2020 Lab Requisition [facility] Outr Resulting Lab, Pathology & Laboratory Provider [facility] [address] [id number] Social History Tobacco Use Types Packs/Day Years [...] Name Priority Date/Time Associated Diagnosis Comme nts BACTERIAL Routine 08/25/2020 14:15 Results for this CULTURE/SMEAR EDT procedure are in the results section. documented in this encounter Results (ABNORMAL) BACTERIAL CULTURE/SMEAR (08/25/2020 14:15 EDT) Pathologist Sig nature Organism ID Few Usual skin jesi [facility] Smear Few Neutrophils [facility] Present (A) LABORATORY SERVICES Smear No bacteria seen (A) [facility] Specimen Swab - Entire upper limb (body structure ) Performing Organization Address City/State/ZIP Code Phon e Number [facility] [address] [place] [address] SERVICES documented in this encounter Visit Diagnoses Not on filedocumented in this encounter Care Teams Retirement Actuary Relationship Specialty Start Date End Date Katia Mccallum PA-C PCP - General 05/02/[address] [place] [address] documented as of this encounter
--- OUTSIDE RECORDS SUMMARY | 2021-09-28 02:19 | XMS_ITS | Encounter Summary ---
:1950 Author Organization [facility] Address [address] [place] [address] Care Team Providers Name Role Phone Katia Mccallum PA-C Primary Care Provider [phone] Encounter Details Date Type Department Care Team Description 08/08/2020 Results Only Imaging [facility] Justin Christy [facility] MD Hallie Radiology Results [address] [place] [address] [phone] (Wo rk) Social History Tobacco Use Types [...] Name Priority Date/Time Associated Diagnosis Comme nts XR CHEST 2 VIEWS 08/08/2020 15:36 Results for this EDT procedure are i n the results section. CT ABDOMEN PELVIS W 08/08/2020 15:36 Resu lts for this CONTRAST EDT procedure are i n the results section. documented in this encounter Results XR CHEST 2 VIEWS (08/08/2020 15:36 EDT) Specimen Narrative [facility] - 2020 15:36 EDT ?[facility] ?[address] ?[place] [address] ?Diagnostic Imaging Report ? Signed ? Patient Name:DAVID FARFAN ? Date of :1950 ?MR Number:[id number] ? Age:69 ?Sex:M ? Category: CR ?Date of Exam:08/08/20 ? Procedure: CR: Chest; Frontal/LAT views ? 564 ? Ordering Physician: Tony Christy MD ?Patient ? CC: ?? Katia Mccallum ?? Tony Christy MD ? PROCEDURE INFORMATION: ?? Exam: XR Chest ?? Exam date and time: 08/08/2020 3:36 PM ?? Age: 69 years old ?? Clinical indication: Shortness of breat h; Additional info: SOB ? TECHNIQUE: ?? Imaging protocol: XR of the chest. ?? Views: 2 views. ? COMPARISON: ?? CT Thorax w/contrast 01/16/2020 2:46 PM ? FINDINGS: ?? 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 ? Lungs: Pleural plaques/calcifications a long the lateral wall of the right ?? hemithorax. Bilateral linear opacities of fibrosis. No shahnaz infiltrates. ?? Pleural spaces: Unremarkable. No pleura l effusion. No pneumothorax. ?? Heart/Mediastinum: Cardiac silhouette i s enlarged. ?? Bones/joints: Unremarkable. ? IMPRESSION: ?? No infiltrates identified. Changes of f ibrosis. Left-sided pleural effusion. ?? Cardiomegaly. Permanent pacemaker in pl jeanie. ? Report signed by: Temo Son On 08/08 ??19:38:05 ?? For any questions regarding this report , please contact the [facility] at [phone] ? Dictated by: Temo Son MD ?D/ 15 ?? 36 ?? Transcribed by: SSCOURTNEY ?D/T: ? E-Signed by: Temo Son MD ?D/ 19 ?? 38 ?? Procedure Note Temo Son MD - 08[facility]08/[facility] [address] [address] Diagnostic Imaging Report Signed Patient Name:DAVID FARFAN r:[id number] Date of :1950 MR Number:[id number] Age:69 Sex:M Category: CR Date of Exam:08/08/20 Procedure: CR: Chest; Frontal/LAT views 564 Ordering Physician: Tony Christy MD Patient CC: Katia Mccallum Joseph MD PROCEDURE INFORMATION: Exam: XR Chest Exam date and time: 08/08/2020 3:36 PM Age: 69 years old Clinical indication: Shortness of breat h; Additional info: SOB TECHNIQUE: Imaging protocol: XR of the chest. Views: 2 views. COMPARISON: CT Thorax w/contrast 01/16/2020 2:46 PM FINDINGS: Tubes, catheters and devices: Permanent pacemaker in place. Lungs: Pleural plaques/calcifications a long the lateral wall of the right hemithorax. Bilateral linear opacities of fibrosis. No shahnaz infiltrates. Pleural spaces: Unremarkable. No pleura l effusion. No pneumothorax. Heart/Mediastinum: Cardiac silhouette i s enlarged. Bones/joints: Unremarkable. IMPRESSION: No infiltrates identified. Changes of f ibrosis. Left-sided pleural effusion. Cardiomegaly. Permanent pacemaker in pl jeanie. Report signed by: Temo Son On 08/08 19:38:05 For any questions regarding this report , please contact the [facility] at [phone] Dictated by: Temo Son MD D/T: 08/08 15 36 Transcribed by: DEBRA D/T: E-Signed by: Temo Son MD D/T: 08/08 19 38 Performing Organization Address City/State/ZIP Code Phon e Number [facility] CT ABDOMEN PELVIS W CONTRAST (08/08/2020 15:36 EDT) Specimen Narrative [facility] - 2020 15:36 EDT ?[facility] ?[address] ?[place], [place] [address] ?Diagnostic Imaging Report ? Signed ? Patient Name:ADOLPH,DAVID F ? Date of :1950 ?MR Number:[id number] ? Age:69 ?Sex:M ? Category: CT ?Date of Exam:08/08/20 ? Procedure: CT: Abd ?? Pelvis; wit cntrst ? 565 ? Ordering Physician: Tony Christy MD ?Patient ? CC: ?? Katia Mccallum ?? Tony Christy MD ? PROCEDURE INFORMATION: ?? Exam: CT Abdomen And Pelvis With Contra st ?? Exam date and time: 08/08/2020 3:36 PM ?? Age: 69 years old ?? Clinical indication: Abdominal pain; Ge neralized ? TECHNIQUE: ?? Imaging protocol: Computed tomography o f the abdomen and pelvis with contrast. ?? Radiation optimization: All CT scans at this facility use at least one of these ?? dose optimization techniques: automated exposure control; mA and/or kV ?? adjustment per patient size (includes t argeted exams where dose is matched to ?? clinical indication); or iterative soraida nstruction. ?? Contrast material: ISOVUE 370; Contrast volume: 88 ml; Contrast route: ?? INTRAVENOUS (IV); ? COMPARISON: ?? No relevant prior studies available. ? FINDINGS: ?? 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 ? Lungs: Linear opacities of fibrosis wit hin the aerated portion of the right ?? lung base. ?? Pleural spaces: Calcified pleural plaqu es within visualized right lower ?? hemithorax. Left-sided pleural effusion , possibly loculated. ?? Heart: Mitral valve calcifications. ? Liver: Unremarkable. No mass. ?? Gallbladder and bile ducts: No calcifie d stones. No ductal dilation. ?? Pancreas: Unremarkable. No ductal dilat ion. ?? Spleen: Unremarkable. No splenomegaly. ?? Adrenal glands: Normal. No mass. ?? Kidneys and ureters: Unremarkable. No h ydronephrosis. ?? Stomach and bowel: Small hiatal hernia containing proximal stomach. Liquid ?? contents and gas within colon, cannot r ule out diarrhea. Colonic ?? diverticulosis. Dilated loops of small bowel containing fluid and gas, cannot ?? rule out mechanical bowel obstruction. Transition point is not identified. ?? Evaluation is limited without oral cont rast. ?? Appendix: No evidence of appendicitis. ? Intraperitoneal space: No free air. No significant fluid collection. ?? Vasculature: No abdominal aortic aneury sm. ?? Lymph nodes: No enlarged lymph nodes. ? ? Urinary bladder: Unremarkable as visual ized. ?? Reproductive: Unremarkable as visualize d. ?? Bones/joints: Healing fractures of the left 12th, 11th, 10th ribs. ? Degenerative changes within lumbar spin e. ??L2 compression deformity, likely ?? chronic. ?? Soft tissues: Fluid collections within subcutaneous adipose tissues over the ?? right iliac bone, 3.7 x 5.1 centimetres an adjacent, possibly communicating ?? fluid collection measuring 2.9 by 2.4 c m. Right gluteal subcutaneous dense ?? focus measures 5.6 x 1.8 x 5.6 cm, daria ot rule out a hematoma. Possible ?? subcutaneous adipose tissue hematomas o cami the left gluteal region, not well ?? seen. ? IMPRESSION: ?? 1. Dilated loops of small bowel contain ing fluid and gas, colonic distension, ?? overall findings may represent ileus. L iquid contents within distal colon and ?? rectum, possible diarrhea, correlate cl inically. Mechanical small bowel ?? obstruction is less likely, however, ca nnot be entirely excluded. Evaluation is ?? limited without oral contrast. If clini eran appropriate, consider oral ?? contrast and follow-up serial abdominal radiographs. ?? 2. Fluid collections within subcutaneou s adipose tissues overlying the right ?? iliac bone, may represent seromas or ol d hematomas. Possible right gluteal ?? subcutaneous adipose tissue hematoma, 5 .6 x 1.8 x 5.6 centimetres. ? Report signed by: Temo Son On 08/08 ??19:36:24 ?? For any questions regarding this report , please contact the [facility] at [phone] ? Dictated by: Temo Son MD ?D/ 15 ?? 36 ?? Transcribed by: DEBRA ?D/T: ? E-Signed by: Temo Son MD ?D/ 19 ?? 36 ?? Procedure Note Temo Son MD - 08/08/2020 [facility] [place] [id number] Diagnostic Imaging Report Signed Patient Name:DAVID FARFAN r:[id number] Date of :1950 MR Number:[id number] Age:69 Sex:M Category: CT Date of Exam:08/08/20 Procedure: CT: Abd Pelvis; wit cntrst A ccession: [id number] Ordering Physician: Tony Christy MD Patient CC: Katia Mccallum Joseph MD PROCEDURE INFORMATION: Exam: CT Abdomen And Pelvis With Contra st Exam date and time: 08/08/2020 3:36 PM Age: 69 years old Clinical indication: Abdominal pain; Ge neralized TECHNIQUE: Imaging protocol: Computed tomography o f the abdomen and pelvis with contrast. Radiation optimization: All CT scans at this facility use at least one of these dose optimization techniques: automated exposure control; mA and/or kV adjustment per patient size (includes t argeted exams where dose is matched to clinical indication); or iterative soraida nstruction. Contrast material: ISOVUE 370; Contrast volume: 88 ml; Contrast route: INTRAVENOUS (IV); COMPARISON: No relevant prior studies available. FINDINGS: Tubes, catheters and devices: Permanent pacemaker in place. Lungs: Linear opacities of fibrosis wit hin the aerated portion of the right lung base. Pleural spaces: Calcified pleural plaqu es within visualized right lower hemithorax. Left-sided pleural effusion , possibly loculated. Heart: Mitral valve calcifications. Liver: Unremarkable. No mass. Gallbladder and bile ducts: No calcifie d stones. No ductal dilation. Pancreas: Unremarkable. No ductal dilat ion. Spleen: Unremarkable. No splenomegaly. Adrenal glands: Normal. No mass. Kidneys and ureters: Unremarkable. No h ydronephrosis. Stomach and bowel: Small hiatal hernia containing proximal stomach. Liquid contents and gas within colon, cannot r ule out diarrhea. Colonic diverticulosis. Dilated loops of small bowel containing fluid and gas, cannot rule out mechanical bowel obstruction. Transition point is not identified. Evaluation is limited without oral cont rast. Appendix: No evidence of appendicitis. Intraperitoneal space: No free air. No significant fluid collection. Vasculature: No abdominal aortic aneury sm. Lymph nodes: No enlarged lymph nodes. Urinary bladder: Unremarkable as visual ized. Reproductive: Unremarkable as visualize d. Bones/joints: Healing fractures of the left 12th, 11th, 10th ribs. Degenerative changes within lumbar spin e. L2 compression deformity, likely chronic. Soft tissues: Fluid collections within subcutaneous adipose tissues over the right iliac bone, 3.7 x 5.1 centimetres an adjacent, possibly communicating fluid collection measuring 2.9 by 2.4 c m. Right gluteal subcutaneous dense focus measures 5.6 x 1.8 x 5.6 cm, daria ot rule out a hematoma. Possible subcutaneous adipose tissue hematomas o cami the left gluteal region, not well seen. IMPRESSION: 1. Dilated loops of small bowel contain ing fluid and gas, colonic distension, overall findings may represent ileus. L iquid contents within distal colon and rectum, possible diarrhea, correlate cl inically. Mechanical small bowel obstruction is less likely, however, ca nnot be entirely excluded. Evaluation is limited without oral contrast. If clini eran appropriate, consider oral contrast and follow-up serial abdominal radiographs. 2. Fluid collections within subcutaneou s adipose tissues overlying the right iliac bone, may represent seromas or ol d hematomas. Possible right gluteal subcutaneous adipose tissue hematoma, 5 .6 x 1.8 x 5.6 centimetres. Report signed by: Temo Son On 08/08 19:36:24 For any questions regarding this report , please contact the [facility] at [phone] Dictated by: Temo Son MD D/T: 08/08 15 36 Transcribed by: DEBRA D/T: E-Signed by: Temo Son MD D/T: 08/08 36 Performing Organization Address City/State/ZIP Code Phon e Number [facility] documented in this encounter Visit Diagnoses Not on filedocumented in this encounter Care Teams Landscape Account Manager Relationship Specialty Start Date End Date Katia Mccallum PA-C PCP - General 05/02/17 [address] [place] [id number] documented as of this encounter
--- OUTSIDE RECORDS SUMMARY | 2021-09-28 02:19 | XMS_ITS | Encounter Summary ---
:1950 Author Organization [facility] Address [address] [place] [address] Care Team Providers Name Role Phone Katia Mccallum PA-C Primary Care Provider [phone] Encounter Details Date Type Department Care Team Description 08/16/2020 Results Only [facility] - Junior Ruiz [facility] [address] [place] [address] [phone] (Wo rk) Social History Tobacco Use Types [...] Associated Diagnosis Comme nts COMPLETE BLOOD Routine 08/16/2020 5:20 EDT Result s for this COUNT procedure are i n the results section. BASIC METABOLIC Routine 08/16/2020 5:20 EDT Resul ts for this PANEL (BMP) procedure are i n the results section. documented in this encounter Results (ABNORMAL) BASIC METABOLIC PANEL (BMP) (08/16/2020 5:20 EDT) Sodium 137 136 - 145 mEq/L [facility] Potassium 3.5 3.5 - 5.1 mEq/L [facility] Chloride 103 96 - 107 mEq/L [facility] CO2 Total 28.1 21 - 32 mEq/L [facility] Anion Gap 5.9 mEq/L [facility] BUN 14 7 - 25 mg/dl [facility] Creatinine 0.57 (L) 0.70 - 1.30 [facility] mg/dl [facility] Estimated GFR >60 >60 [facility] Comment: [facility] EGFR UNITS: mL/min/1.73 m 2 CKD-EPI Equation used to calculate. Glucose 86 74 - 106 mg/dl [facility] Calcium 8.0 (L) 8.5 - 10.1 [facility] mg/dl [facility] Specimen Performing Organization Address City/State/ZIP Code Phon e Number [facility] [address] [place] [address] (ABNORMAL) COMPLETE BLOOD COUNT (08/16/2020 5:20 EDT) Pathologist Sig nature WBC 5.0 4.0 - 10.5 10 [facility] 3/uL [facility] RBC 2.65 (L) 4.70 - 6.00 10 [facility] 6/uL [facility] Hemoglobin 9.3 (L) 13.5 - 18.0 [facility] g/dL [facility] HCT 27.3 (L) 42.0 - 52.0 % [facility] MCV 103.0 (H) 78 - 100 fL [facility] MCH 35.1 (H) 27 - 31 pg [facility] MCHC 34.1 32 - 37 g/dL [facility] RDW-CV - PMC 15.1 (H) <14.7 % [facility] PLATELET COUNT - [facility] 202 150 - 450 [address] [place] [address]/[facility] MPV 10.1 9.2 - 12.0 [facility] Specimen Performing Organization Address City/State/ZIP Code Phon e Number [facility] [address] [place] [address] documented in this encounter Visit Diagnoses Not on filedocumented in this encounter Care Teams Marketing Development Specialist Relationship Specialty Start Date End Date Katia Mccallum PA-C PCP - General 05/02/17 [address] [place] [id number] documented as of this encounter
--- OUTSIDE RECORDS SUMMARY | 2021-09-28 02:19 | XMS_ITS | Encounter Summary ---
:[address] [facility] Address [address] [place] [address] Care Team Providers Name Role Phone Katia Mccallum PA-C Primary Care Provider Encounter Details Date Type Department Care Team Description 08/14/2020 Results Only [facility] [address] [place] [address] [place], [place] [phone] (Wo rk) Social History Tobacco Use [...] Associated Comments Diagnosis COMPLETE BLOOD COUNT Routine 08/14/2020 5:03 Resu lts for this AND DIFFERENTIAL EDT procedure a re in the results section. MAGNESIUM Routine 08/14/2020 5:03 Results for this EDT procedure are i n the results section. COMPREHENSIVE Routine 08/14/2020 5:03 Results for this METABOLIC PANEL (CMP) EDT proced ure are in the results section. documented in this encounter Results (ABNORMAL) MAGNESIUM (08/14/2020 5:03 EDT) Pathologist Sig nature Magnesium 1.6 (L) 1.8 - 2.4 mg/dl [facility] Specimen Performing Organization Address City/State/ZIP Code Phon e Number [facility] [address] [place] [address] (ABNORMAL) COMPREHENSIVE METABOLIC PANEL (CMP) (08/14/2020 5:03 EDT) Sodium 138 136 - 145 [facility] mEq/L [facility] Potassium 3.6 3.5 - 5.1 [facility] mEq/L [facility] Chloride 103 96 - 107 [facility] mEq/L [facility] CO2 Total 28.4 21 - 32 mEq/L [facility] Anion Gap 6.6 mEq/L [facility] BUN 11 7 - 25 mg/dl [facility] Creatinine 0.51 (L) 0.70 - 1.30 [facility] mg/dl [facility] Estimated GFR >60 >60 [facility] Comment: [facility] EGFR UNITS: mL/min/1.73 m 2 CKD-EPI Equation used to calculate. Glucose 101 74 - 106 [facility] mg/dl [facility] Calcium 8.1 (L) 8.5 - 10.1 [facility] mg/dl [facility] CALCIUM,CORRECTED - 9.5 8.5 - 10.5 [facility] PMC mg/dl [facility] BILIRUBIN - [facility] 0.40 0.00 - 1.00 [facility] mg/dl [place] [facility] AST 34 15 - 37 U/L [facility] ALT 21 16 - 63 U/L [facility] Alkaline Phosphatase 102 46 - 116 U/L [facility] Total Protein 6.3 (L) 6.4 - 8.2 [facility] g/dl [place] [facility] Albumin 2.2 (L) 3.4 - 5.0 [facility] g/dl [place] GLOBULIN - [facility] 4.1 g/dl [facility] ALBUMIN/GLOBULIN 0.5 [facility] RATIO [facility] Specimen Performing Organization Address City/State/ZIP Code Phon e Number [facility] [address] [place] [address] (ABNORMAL) COMPLETE BLOOD COUNT AND DIFFERENTIAL (08/14/2020 5:03 EDT) WBC 5.1 4.0 - 10.5 10 [facility] 3/uL [facility] [facility] RBC 2.76 (L) 4.70 - 6.00 10 [facility] 6/uL [place] Hemoglobin 9.9 (L) 13.5 - 18.0 g/dL [facility] HCT 28.7 (L) 42.0 - 52.0 % [facility] MCV 104.0 (H) 78 - 100 fL [facility] MCH 35.9 (H) 27 - 31 pg [facility] MCHC 34.5 32 - 37 g/dL [facility] RDW-CV - PMC 15.9 (H) <14.7 % [facility] PLATELET COUNT - 189 150 - 450 10 3/uL [facility] MPV 10.8 9.2 - 12.0 fL [facility] NEUTROPHILS % 54.7 % [facility] (AUTO) [facility] LYMPHOCYTES % 23.0 % [facility] (AUTO) [facility] MONOCYTES % (AUTO) 18.2 % [facility] EOSINOPHILS % 2.5 NOT ESTABLISHED % [facility] (AUTO) [facility] BASOPHILS % (AUTO) 0.8 % [facility] Immature 0.8 % [facility] Granulocyte % [facility] (Auto) NUCLEATED RBC % 0.0 % [facility] (AUTO) - [facility] NEUTROPHILS # 2.8 1.5 - 6.6 10 3/uL [facility] (AUTO) - [facility] LYMPHOCYTES # 1.2 1.0 - 3.5 10 3/uL [facility] (AUTO) - [facility] MONOCYTES # (AUTO) 0.9 <1.0 10 3/uL [facility] - [facility] EOSINOPHILS # 0.1 <0.7 10 3/uL [facility] (AUTO) - [facility] Absolute Immature 0.04 <0.06 10 3/uL [facility] Granulocyte [place] [facility] DIFFERENTIAL Auto Differential [facility] METHOD [place] Specimen Narrative [facility] - 08/14/2020 6 :11 EDT Comment ENOXAPARIN MONITORING Performing Organization Address City/State/ZIP Code Phon e Number [facility] [address] [place] [address] documented in this encounter Visit Diagnoses Not on filedocumented in this encounter Care Teams Fruit Grader Operator Relationship Specialty Start Date End Date Katia Mccallum PA-C PCP - General 05/02/17 [address] [place] [id number] documented as of this encounter
--- OUTSIDE RECORDS SUMMARY | 2021-09-28 02:19 | XMS_ITS | Encounter Summary ---
:1950 Author Organization [facility] Address [address] [place] [address] Care Team Providers Name Role Phone Katia Mccallum PA-C Primary Care Provider [phone] Encounter Details Date Type Department Care Team Description 08/11/2020 Results Only [facility] - [facility] Geetha Valerio, Rheumatology [address] [facility] [address] [place] [address] [address] [place] [phone] (Wo rk) Social History Tobacco Use Types [...] Name Priority Date/Time Associated Diagnosis Comme nts MAGNESIUM Routine 08/11/2020 5:25 EDT Results for this procedure are i n the results section. HEPATIC FUNCTION Routine 08/11/2020 5:25 EDT Resu lts for this PANEL (ALB,ALK procedure are in PHOS,ALT,AST,DBIL,T the resu lts OT BOSSMAN,TOT PROT) section. BASIC METABOLIC Routine 08/11/2020 5:25 EDT Resul ts for this PANEL (BMP) procedure are i n the results section. documented in this encounter Results (ABNORMAL) MAGNESIUM (08/11/2020 5:25 EDT) Pathologist Sig nature Magnesium 1.5 (L) 1.8 - 2.4 mg/dl [facility] Specimen Performing Organization Address City/State/ZIP Code Phon e Number [facility] [address] [place] [address] (ABNORMAL) BASIC METABOLIC PANEL (BMP) (08/11/2020 5:25 EDT) Sodium 132 (L) 136 - 145 mEq/L [facility] Potassium 3.5 3.5 - 5.1 mEq/L [facility] Chloride 99 96 - 107 mEq/L [facility] CO2 Total 28.6 21 - 32 mEq/L [facility] Anion Gap 4.4 mEq/L [facility] BUN 5 (L) 7 - 25 mg/dl [facility] Creatinine 0.51 (L) 0.70 - 1.30 [facility] mg/dl [facility] Estimated GFR >60 >60 [facility] Comment: [facility] EGFR UNITS: mL/min/1.73 m 2 CKD-EPI Equation used to calculate. Glucose 112 (H) 74 - 106 mg/dl [facility] Calcium 7.7 (L) 8.5 - 10.1 [facility] mg/dl [facility] Specimen Performing Organization Address City/[facility]/ZIP Code Phon e Number [facility] [address] [place] [address] (ABNORMAL) HEPATIC FUNCTION PANEL (ALB,ALK PHOS,ALT,AST,DBIL,TOT BOSSMAN,TOT PROT) (08/11/2020 5:25 EDT) Pathologist Sig nature BILIRUBIN - PMC 0.70 0.00 - 1.00 [facility] mg/dl [place] [facility] DIRECT BILIRUBIN - PMC 0.30 0.00 - 0.30 [facility] mg/dl [place] [facility] INDIRECT BILIRUBIN - 0.40 0.00 - 0.80 [facility] mg/dl [place] [facility] AST 39 (H) 15 - 37 U/L [facility] ALT 30 16 - 63 U/L [facility] Alkaline Phosphatase 95 46 - 116 U/L [facility] Total Protein 6.1 (L) 6.4 - 8.2 g/dl [facility] Albumin 2.2 (L) 3.4 - 5.0 g/dl [facility] GLOBULIN - [facility] 3.9 g/dl [facility] ALBUMIN/GLOBULIN RATIO 0.5 [facility] Specimen Performing Organization Address City/[facility] Code Phon e Number [facility] [address] [place] [address] documented in this encounter Visit Diagnoses Not on filedocumented in this encounter Care Teams Functional Mental Disability Teacher Relationship Specialty Start Date End Date Katia Mccallum PA-C PCP - General 05/02/[address] [place] [id number] documented as of this encounter
--- OUTSIDE RECORDS SUMMARY | 2021-09-28 02:19 | XMS_ITS | Encounter Summary ---
:1950 Author Organization [facility] Address [address] [place] [address] Care Team Providers Name Role Phone Katia Mccallum PA-C Primary Care Provider [phone] Encounter Details Date Type Department Care Team Description 08/08/2020 Results Only [facility] - Renetta Isaac, [facility] Lab MD [address] [place] [address] [place], [place] [phone] (Wo rk) Social History Tobacco Use [...] Associated Comments Diagnosis COMPLETE BLOOD COUNT Routine 08/08/2020 20:42 Res ults for this AND DIFFERENTIAL EDT procedure a re in the results section. CORONAVIRUS COVID-19 Routine 08/08/2020 17:07 Res ults for this PCR (PMC) EDT procedure are i n the results section. BNP Routine 08/08/2020 16:47 Results for this EDT procedure are i n the results section. TROPONIN I Routine 08/08/2020 16:47 Results for this EDT procedure are i n the results section. COMPLETE BLOOD COUNT Routine 08/08/2020 16:47 Res ults for this AND DIFFERENTIAL EDT procedure a re in the results section. COMPREHENSIVE Routine 08/08/2020 16:47 Results fo r this METABOLIC PANEL (CMP) EDT proced ure are in the results section. documented in this encounter Results (ABNORMAL) COMPLETE BLOOD COUNT AND DIFFERENTIAL (08/08/2020 20:42 EDT) WBC 7.6 4.0 - 10.5 10 [facility] 3/[facility] LAB RBC 3.15 (L) 4.70 - 6.00 [place] [address] 6/uL [place] [facility] Hemoglobin 11.3 (L) 13.5 - 18.0 [facility] g/dL [facility]ENTER LAB HCT 31.4 (L) 42.0 - 52.0 % LAB MCV 99.7 78 - 100 fL LAB MCH 35.9 (H) 27 - 31 pg LAB MCHC 36.0 32 - 37 g/dL LAB RDW-CV - PMC 13.8 <14.7 % LAB PLATELET COUNT - PMC 199 150 - 450 10 [facility] 3/[facility] LAB MPV 11.2 9.2 - 12.0 fL LAB NEUTROPHILS % (AUTO) 81.3 % [facility] LAB LYMPHOCYTES % (AUTO) 8.6 % [facility] LAB MONOCYTES % (AUTO) - 9.5 % [facility] LAB EOSINOPHILS % (AUTO) 0.0 % [facility] LAB BASOPHILS % (AUTO) - 0.1 % [facility] LAB Immature Granulocyte 0.5 % [facility] % (Auto) [place] [facility] NUCLEATED RBC % 0.0 % [facility] (AUTO) [facility] LAB NEUTROPHILS # (AUTO) 6.1 1.5 - 6.6 10 [facility] 3/uL [facility]ENTER LAB LYMPHOCYTES # (AUTO) 0.7 (L) 1.0 - 3.5 10 [facility] 3/uL [place] [facility] MONOCYTES # (AUTO) - 0.7 <1.0 10 3/uL [facility] LAB EOSINOPHILS # (AUTO) 0.0 <0.7 10 3/uL [facility] LAB Absolute Immature 0.04 <0.06 10 3/uL [facility] LAB DIFFERENTIAL METHOD Auto Differential LAB Specimen Performing Organization Address [facility]/State/ZIP Code Phon e Number LAB [address] [place] [address] CORONAVIRUS COVID-19 PCR ([facility]) (08/08/2020 17:07 EDT) Specimen Narrative LAB - 08/08/2020 1 8:36 EDT ?? RUN DATE: 08/08/20 ? [facility]: [facility] LAB *LIVE* ? PAGE 1 ? RUN TIME: 1837 ?Specimen Inquiry ? PATIENT: DAVID FARFAN ? ACCT: [id number] LOC: ??ED ? U: [id number] ? AGE/SX: 69/M ? ROOM: ?RE08/08/20 ?? REG DR: ??Tony Christy MD ?: ?1950 ?? BED: ? DIS: ? STATUS: REG ER ? TLOC: ? SPEC #: [id number] ?ALEX: -1706 ? STATUS: ??COMP ? REQ #: [id number] ?RECD: 08/08/20 ? SUBM DR: Tony Christy MD ? SOURCE: NASAL SWAB ?ENTR: 0 08/08/20 ? OTHR : Katia Mccallum ? SPDESC: SWAB ? ORDERED: ??COVID-19 PMC ?Procedure ? Result ?COVID-19 PCR (PMC) ??Final ?Negative ?Negative results do not prec lude 2019-nCoV infection and ?should not be used as the so le basis for treatment or other ?patient management decisions . Negative results must be ?combined with clinical obser vations, patient history, and ?epidemiological information. ?. ?This test has not been FDA cleared or approved. This test ?has been authorized by the [facility] under a EUA for use by ?authorized laboratories. Thi s test has been authorized only ?for detection of nucleic aci d from 2019-nCoV, not for any ?other viruses or pathogens. This test is only authorized for ?the duration of the declarat ion that circumstances exist ?justifying the authorization of emergency use of in vitro ?diagnostic tests for detecti on and/or diagnosis of 2019-nCoV ?under section 563(b)(1) of [place], 21 U.S.C. ? 360bbb-3(b)(1), ?unless the authorization is terminated or revoked sooner. ?Testing performed on VividCortex instrument ? END OF REPORT ? Performing Organization Address [facility] LAB [address] [place] [address] (ABNORMAL) BNP - PMC (08/08/2020 16:47 EDT) [facility] nature B-TYPE NATRIURETIC 398 (H) <100 pg/mL PEPTIDE - PMC LAB Specimen Performing Organization Address [facility] LAB [address] [place] [address] TROPONIN I (08/08/2020 16:47 EDT) [facility] Troponin I <0.050 0 - 0.056 [facility] (ng/mL) Comment: ng/ml CENTER LAB Interpretation: The cutoff for an abnormal troponin result is set at the 99th percentile of a normal, healthy population. Elevated troponin values must always be interpreted in the context of the clinical presentation. Clinical correlation is required to determine if serial troponin measurements are appropriate. The results of this assay can be falsely lowered due to the consumption of Biotin. Specimen Performing Organization Address [facility] LAB [address] [place] [address] (ABNORMAL) COMPREHENSIVE METABOLIC PANEL (CMP) (08/08/2020 16:47 EDT) [facility] Sodium 125 (L) 136 - 145 [facility] mEq/L [facility]ENTER LAB Potassium 2.9 (L) 3.5 - 5.1 [facility] mEq/L [facility] LAB Chloride 85 (L) 96 - 107 [facility] mEq/L [place] [facility] CO2 Total 26.2 21 - 32 mEq/L LAB Anion Gap 13.8 mEq/L LAB BUN 8 7 - 25 mg/dl LAB Creatinine 0.67 (L) 0.70 - 1.30 [facility] mg/dl [facility]ENTER LAB Estimated GFR >60 >60 [facility] Comment: [facility]ENTER LAB EGFR UNITS: mL/min/1.73 m 2 CKD-EPI Equation used to calculate. Glucose 101 74 - 106 [facility] mg/dl [place] [facility] Calcium 8.5 8.5 - 10.1 [facility] mg/dl [place] [facility] CALCIUM,CORRECTED - 9.3 8.5 - 10.5 [facility] mg/dl [place] [facility] BILIRUBIN - PMC 1.60 (H) 0.00 - 1.00 [facility] mg/dl [place] [facility] AST 90 (H) 15 - 37 U/L LAB ALT 62 16 - 63 U/L LAB Alkaline Phosphatase 133 (H) 46 - 116 U/L LAB Total Protein 7.6 6.4 - 8.2 [facility] g/dl [place] [facility] Albumin 3.0 (L) 3.4 - 5.0 [facility] g/dl [place] [facility] GLOBULIN - PMC 4.6 g/dl LAB ALBUMIN/GLOBULIN 0.6 [facility] RATIO - PMC [facility] LAB Specimen Performing Organization Address City/State/ZIP Code Phon e Number LAB [address] [place] [address] (ABNORMAL) COMPLETE BLOOD COUNT AND DIFFERENTIAL (08/08/2020 16:47 EDT) WBC 7.3 4.0 - 10.5 10 [facility] 3/uL [place] [facility] RBC 3.32 (L) 4.70 - 6.00 [facility] 10 6/uL [place] [facility] Hemoglobin 11.8 (L) 13.5 - 18.0 [facility] g/dL [place] [facility] HCT 32.9 (L) 42.0 - 52.0 % LAB MCV 99.1 78 - 100 fL LAB MCH 35.5 (H) 27 - 31 pg LAB MCHC 35.9 32 - 37 g/dL LAB RDW-CV - [facility] 13.7 <14.7 % LAB PLATELET COUNT - [facility] 209 150 - 450 10 [facility] 3/[facility] LAB MPV 11.4 9.2 - 12.0 fL LAB NEUTROPHILS % (AUTO) 81.9 % [facility] LAB LYMPHOCYTES % (AUTO) 9.1 % [facility] LAB MONOCYTES % (AUTO) - 8.3 % [facility] LAB EOSINOPHILS % (AUTO) 0.0 % [facility] LAB BASOPHILS % (AUTO) - 0.1 % [facility] LAB Immature Granulocyte 0.6 % [facility] % (Auto) [place] [facility] NUCLEATED RBC % 0.0 % [facility] (AUTO) [facility] LAB NEUTROPHILS # (AUTO) 5.9 1.5 - 6.6 10 [facility] 3/[facility] LAB LYMPHOCYTES # (AUTO) 0.7 (L) 1.0 - 3.5 10 [facility] 3/[facility] LAB MONOCYTES # (AUTO) - 0.6 <1.0 10 3/[facility] LAB EOSINOPHILS # (AUTO) 0.0 <0.7 10 3/[facility] LAB Absolute Immature 0.04 <0.06 10 3/[facility] LAB DIFFERENTIAL METHOD Auto Differential LAB Specimen Performing Organization Address City/State/ZIP Code Phon e Number LAB [address] [place] [address] documented in this encounter Visit Diagnoses Not on filedocumented in this encounter Care Teams Ballistics Teacher Relationship Specialty Start Date End Date Katia Mccallum PA-C PCP - General 05/02/17 [address] [place], [place] [id number] documented as of this encounter
--- OUTSIDE RECORDS SUMMARY | 2021-09-28 02:19 | XMS_ITS | Encounter Summary ---
:1950 Author Organization [facility] Address [address] [place] [address] Care Team Providers Name Role Phone Katia Mccallum PA-C Primary Care Provider [phone] Encounter Details Date Type Department Care Team Description 09/15/2020 Results Only [facility] - [facility] Ruiz [facility] Lab [address] [place] [phone] (Wo rk) Social History Tobacco Use Types [...] Associated Diagnosis Comme nts COMPLETE BLOOD Routine 09/15/2020 5:25 EDT Result s for this COUNT procedure are i n the results section. documented in this encounter Results (ABNORMAL) COMPLETE BLOOD COUNT (09/15/2020 5:25 EDT) Pathologist Sig nature WBC 6.7 4.0 - 10.5 10 [facility] 3[facility] LAB RBC 3.26 (L) 4.70 - 6.[address] LAB Hemoglobin 11.2 (L) 13.5 - 18.0 [facility] g/dL [place] LAB HCT 31.9 (L) 42.0 - 52.0 % LAB MCV 97.9 78 - 100 fL LAB MCH 34.4 (H) 27 - 31 pg LAB MCHC 35.1 32 - 37 g/dL LAB RDW-CV - PMC 12.4 <14.7 % LAB PLATELET COUNT - PMC 256 150 - [address] LAB MPV 10.6 9.2 - 12.0 fL LAB Specimen Performing Organization Address City/State/ZIP Code Phon e Number LAB [address] [place] [address] documented in this encounter Visit Diagnoses Not on filedocumented in this encounter Care Teams Temperature Control Inspector Relationship Specialty Start Date End Date Katia Mccallum PA-C PCP - General 05/02/[address] [place] [id number] documented as of this encounter
--- OUTSIDE RECORDS SUMMARY | 2021-09-28 02:19 | XMS_ITS | Encounter Summary ---
:1950 Author Organization [facility] Address [address] [place] [address] Care Team Providers Name Role Phone Katia Mccallum PA-C Primary Care Provider [phone] Encounter Details Date Type Department Care Team Description 08/10/2020 Results Only [facility] - [facility] Geetha Valerio, Rheumatology [address] [facility] [address] [place] [address] [address] [place] [phone] (Wo rk) Social History Tobacco Use [...] Associated Comments Diagnosis COMPLETE BLOOD COUNT Routine 08/10/2020 5:35 Resu lts for this AND DIFFERENTIAL EDT procedure a re in the results section. MAGNESIUM Routine 08/10/2020 5:35 Results for this EDT procedure are i n the results section. HEPATIC FUNCTION Routine 08/10/2020 5:35 Results for this PANEL (ALB,ALK EDT procedure are in PHOS,ALT,AST,DBIL,TOT the re sults BOSSMAN,TOT PROT) section. BASIC METABOLIC PANEL Routine 08/10/2020 5:35 Res ults for this (BMP) EDT procedure are i n the results section. documented in this encounter Results (ABNORMAL) MAGNESIUM (08/10/2020 5:35 EDT) Pathologist Sig nature Magnesium 1.5 (L) 1.8 - 2.4 mg/dl [facility] LAB Specimen Performing Organization Address City/State/ZIP Code Phon e Number [facility] LAB [address] [place] [address] (ABNORMAL) BASIC METABOLIC PANEL (BMP) (08/10/2020 5:35 EDT) Sodium 133 (L) 136 - 145 mEq/L [facility] LAB Potassium 3.4 (L) 3.5 - 5.1 mEq/L [facility] LAB Chloride 98 96 - 107 mEq/L [facility] LAB CO2 Total 27.2 21 - 32 mEq/L [facility] LAB Anion Gap 7.8 mEq/L [facility] LAB BUN 6 (L) 7 - 25 mg/dl [facility] LAB Creatinine 0.54 (L) 0.70 - 1.30 [facility] mg/dl [facility]ENTER LAB Estimated GFR >60 >60 [facility] Comment: CENTER LAB EGFR UNITS: mL/min/1.73 m 2 CKD-EPI Equation used to calculate. Glucose 86 74 - 106 mg/dl [facility] LAB Calcium 7.7 (L) 8.5 - 10.1 [facility] mg/dl [facility]ENTER LAB Specimen Performing Organization Address [facility] e [facility] LAB [address] [place] [address] (ABNORMAL) HEPATIC FUNCTION PANEL (ALB,ALK PHOS,ALT,AST,DBIL,TOT BOS[place]AN,TOT PROT) (08/10/2020 5:35 EDT) Pathologist Sig nature BILIRUBIN - [facility] 0.90 0.00 - 1.00 [facility] mg/dl [facility] LAB DIRECT BILIRUBIN - 0.50 (H) 0.00 - 0.30 [facility] PMC mg/dl [facility]ENTER LAB INDIRECT BILIRUBIN - 0.40 0.00 - 0.80 [facility] mg/dl [facility] LAB AST 50 (H) 15 - 37 U/L [facility] LAB ALT 37 16 - 63 U/L [facility] LAB Alkaline Phosphatase 97 46 - 116 U/L [facility] LAB Total Protein 6.1 (L) 6.4 - 8.2 g/dl [facility] LAB Albumin 2.3 (L) 3.4 - 5.0 g/dl [facility] LAB GLOBULIN - [facility] 3.8 g/dl [facility] LAB ALBUMIN/GLOBULIN 0.6 [facility] RATIO - [facility] CENTER LAB Specimen Performing Organization Address [facility] LAB [address] [place] [address] (ABNORMAL) COMPLETE BLOOD COUNT AND DIFFERENTIAL (08/10/2020 5:35 EDT) WBC 7.0 4.0 - 10.5 10 [facility] 3/uL [facility] LAB RBC 2.72 (L) 4.70 - 6.00 [facility] 10 6/uL [facility] LAB Hemoglobin 9.7 (L) 13.5 - 18.0 [facility] g/dL [place] LAB HCT 27.9 (L) 42.0 - 52.0 % [facility] LAB MCV 102.6 (H) 78 - 100 fL [facility] LAB MCH 35.7 (H) 27 - 31 pg [facility] LAB MCHC 34.8 32 - 37 g/dL [facility] LAB RDW-CV - PMC 14.7 <14.7 % [facility] LAB PLATELET COUNT - [facility] 180 150 - 450 10 [facility] 3/[facility] LAB MPV 11.0 9.2 - 12.0 fL [facility] LAB NEUTROPHILS % (AUTO) 65.5 % [facility] LAB LYMPHOCYTES % (AUTO) 17.5 % [facility] LAB MONOCYTES % (AUTO) - 13.9 % [facility] LAB EOSINOPHILS % (AUTO) 2.1 % [facility] LAB BASOPHILS % (AUTO) - 0.4 % [facility] LAB Immature Granulocyte 0.6 % [facility] % (Auto) [place] LAB NUCLEATED RBC % 0.0 % [facility] (AUTO) [facility] LAB NEUTROPHILS # (AUTO) 4.6 1.5 - 6.6 10 [facility] 3[facility] LAB LYMPHOCYTES # (AUTO) 1.2 1.0 - 3.[address] LAB MONOCYTES # (AUTO) - 1.0 <1.0 10 3/[facility] LAB EOSINOPHILS # (AUTO) 0.2 <0.7 10 3/[facility] LAB Absolute Immature 0.04 <0.06 10 3/[facility] LAB DIFFERENTIAL METHOD Auto Differential [facility] LAB Specimen Performing Organization Address City/State/ZIP Code Phon e Number [facility] LAB [address] [place] [address] documented in this encounter Visit Diagnoses Not on filedocumented in this encounter Care Teams Air Pollution Engineer Relationship Specialty Start Date End Date Katia Mccallum PA-C PCP - General 05/02/[address] [place] [address] documented as of this encounter
--- OUTSIDE RECORDS SUMMARY | 2021-09-28 02:19 | XMS_ITS | Encounter Summary ---
:1950 Author Organization [facility] Address [address] [place] [address] Care Team Providers Name Role Phone Katia Mccallum PA-C Primary Care Provider [phone] Encounter Details Date Type Department Care Team Description 08/25/2020 Results Only [facility] Rowan Abad NP [phone] [place] [phone] (Wo rk) Social History Tobacco Use [...] Procedure Name Priority Date/Time Associated Comments Diagnosis ORGANISM ID FROM Routine 08/25/2020 14:15 Results for this PLATE - PMC EDT procedure are i n the results section. HERPES SIMPLEX VIRUS Routine 08/25/2020 14:15 Res ults for this MOLECULAR DETECTION, EDT procedu re are in PCR the results section. CREATININE WITH GFR Routine 08/25/2020 6:09 EDT R esults for this - PMC procedure are i n the results section. PLATELET COUNT Routine 08/25/2020 6:09 EDT Result s for this procedure are i n the results section. documented in this encounter Results (ABNORMAL) ORGANISM ID FROM PLATE - PMC (08/25/2020 14:15 EDT) GRAM SMEAR - PMC SEE NOTES (A) [facility] Comment: CENTER LAB RESULT: Few Neutrophils Present No bacteria seen SWATI Few Usual skin jesi [facility] RESULTS/ORGANISM Comment: CENTER LAB ID - PMC Spec Description ?? Additional Information:: LEFT ARM Source:ARM Test performed [place] [address] Specimen Narrative [facility] - 08/27/2020 1 7:20 EDT ARM LEFT ARM Performing Organization Address City/State/ZIP Code Phon e Number [facility] [address] [place] [address] HERPES SIMPLEX VIRUS MOLECULAR DETECTION, PCR (08/25/2020 14:15 EDT) HERPES SIMPLEX Negative Negative [facility] V[facility] I DNA - PMC [facility] HERPES SIMPLEX Negative Negative [facility] 2 DNA - PMC Comment: CENTER LAB SOURCE:: ARM Spec Description ?? Additional Information:: LEFT ARM Source:LEFT ARM Test performed or referred by The [address] [address] Specimen Narrative [facility] - 08/26/2020 1 9:39 EDT ARM LEFT ARM Performing Organization Address [facility] Phon e Number [facility] [address] [place] [address] (ABNORMAL) CREATININE WITH GFR - PMC (08/25/2020 6:09 EDT) Creatinine 0.60 (L) 0.70 - 1.30 [facility] mg/dl CENTER LAB Estimated GFR >60 >60 [facility] Comment: CENTER LAB EGFR UNITS: mL/min/1.73 m 2 CKD-EPI Equation used to calculate. Specimen Performing Organization Address [facility] Phon e Number [facility] [address] [place] [address] PLATELET COUNT (08/25/2020 6:09 EDT) Pathologist Sig nature PLATELET COUNT - [facility] 326 150 - 450 10 [place] [address]/uL [facility]ENTER LAB Specimen Narrative [facility] - 08/25/2020 7 :06 EDT Comment ENOXAPARIN MONITORING Performing Organization Address [facility] Phon e Number [facility] [address] [place] [address] documented in this encounter Visit Diagnoses Not on filedocumented in this encounter Care Teams Formula Room Worker Relationship Specialty Start Date End Date Katia Mccallum PA-C PCP - General 05/02/[address] [place] [id number] documented as of this encounter
--- OUTSIDE RECORDS SUMMARY | 2021-09-28 02:19 | XMS_ITS | Encounter Summary ---
:1950 Author Organization [facility] Address [address] [place] [address] Care Team Providers Name Role Phone Katia Mccallum PA-C Primary Care Provider [phone] Encounter Details Date Type Department Care Team Description 08/09/2020 Results Only [facility] - Ester Valerio Imaging [facility] MD Annemarie Radiology Results [address] [place], [place] [address] [place] [phone] (Wo rk) Social History Tobacco Use Types [...] Priority Date/Time Associated Diagnosis Comme nts XR ABDOMEN 2 VIEWS 08/09/2020 8:33 EDT Re sults for this procedure are i n the results section. documented in this encounter Results XR ABDOMEN 2 VIEWS (08/09/2020 8:33 EDT) Specimen Narrative RADIOLOGY - 2020 16:38 EDT ?[facility]: [facility] ?[address] ?[place] [address] ?Diagnostic Imaging Report ? Signed ? Patient Name:DAVID FARFAN ? Date of :1950 ?MR Number:[id number] ? Age:69 ?Sex:M ? Category: CR ?Date of Exam:08/09/20 ? Procedure: CR: Abd; 2 Views ? Ordering Physician: Ester Valerio MD ?Patient ? CC: ?? Ester Valerio MD ?? Katia Mccallum ? CR: Abd; 2 Views ? CLINICAL HISTORY: Ileus. ? COMPARISON: Earlier abdominal CT dated 08/08/2020. ? FINDINGS: ? Multiple air-filled loops of both large and small bowel are present. ?? There is a curvilinear prominent loop o f bowel overlying the ?? midabdomen that likely represents a loo p of colon. This is not clearly ?? demonstrated on the prior exam. Rectal gas cannot be confirmed. No ?? abnormal soft tissue mass or free intra peritoneal air is noted. No ?? acute-appearing osseous abnormality is noted. ? Portions of an internal cardiac pacing device are demonstrated. There ?? is fairly pronounced pleural thickening on the right and to a lesser ?? extent on the left. ? The exam otherwise appears unremarkable . ? IMPRESSION: Multiple air-filled loops o f bowel are once again ?? demonstrated. This includes a prominent loop of what likely represents ?? colon overlying the midabdomen. Unfortu nately, developing volvulus is ?? not excluded. Clinical correlation advi sed. Repeat CT would be the ?? imaging study of choice for further marian luation. Findings have been ?? called to Ester Valerio at the time o f interpretation. ? Dictated by: Love Erickson MD ?D/ 16 ?? 38 ?? Transcribed by: JUSTUS ?D/ ?? E-Signed by: Love Erickson MD ?D/ 16 ?? 38 ?? Procedure Note Poncho Erickson MD - 08/09/2020 [facility] [address] [address] Diagnostic Imaging Report Signed Patient Name:DAVID FARFAN r:[id number] Date of :1950 MR Number:[id number] Age:69 Sex:M Category: CR Date of Exam:08/09/20 Procedure: CR: Abd; 2 Views Accession: [id number] Ordering Physician: Ester Valerio MD atient CC: Ester Valerio MD, Katelyn PA CR: Abd; 2 Views CLINICAL HISTORY: Ileus. COMPARISON: Earlier abdominal CT dated 08/08/2020. FINDINGS: Multiple air-filled loops of both large and small bowel are present. There is a curvilinear prominent loop o f bowel overlying the midabdomen that likely represents a loo p of colon. This is not clearly demonstrated on the prior exam. Rectal gas cannot be confirmed. No abnormal soft tissue mass or free intra peritoneal air is noted. No acute-appearing osseous abnormality is noted. Portions of an internal cardiac pacing device are demonstrated. There is fairly pronounced pleural thickening on the right and to a lesser extent on the left. The exam otherwise appears unremarkable . IMPRESSION: Multiple air-filled loops o f bowel are once again demonstrated. This includes a prominent loop of what likely represents colon overlying the midabdomen. Unfortu nately, developing volvulus is not excluded. Clinical correlation advi sed. Repeat CT would be the imaging study of choice for further marian luation. Findings have been called to Ester Valerio at the time o f interpretation. Dictated by: Love Erickson MD D/T: 08/09 16 38 Transcribed by: JUSTUS D/ 164 8 E-Signed by: Love Erickson MD D/T: 08/09 16 38 Performing Organization Address City/State/ZIP Code Phon e Number RADIOLOGY documented in this encounter Visit Diagnoses Not on filedocumented in this encounter Care Teams Facility Manager Relationship Specialty Start Date End Date Katia Mccallum PA-C PCP - General 05/02/17 [address] [place] [id number] documented as of this encounter
--- OUTSIDE RECORDS SUMMARY | 2021-09-28 02:19 | XMS_ITS | Encounter Summary ---
:1950 Author Organization Health system Address [address] [place] [address] Care Team Providers Name Role Phone Katia Mccallum PA-C Primary Care Provider [phone] Encounter Details Date Type Department Care Team Description 08/18/2020 Results Only [facility] - [facility] [address] [place] [address] [phone] (Wo rk) Social History Tobacco Use Types [...] Associated Diagnosis Comme nts COMPLETE BLOOD Routine 08/18/2020 5:15 EDT Result s for this COUNT procedure are i n the results section. BASIC METABOLIC Routine 08/18/2020 5:15 EDT Resul ts for this PANEL (BMP) procedure are i n the results section. documented in this encounter Results (ABNORMAL) BASIC METABOLIC PANEL (BMP) (08/18/2020 5:15 EDT) Sodium 138 136 - 145 mEq/L [facility] Potassium 3.3 (L) 3.5 - 5.1 mEq/L [facility] Chloride 101 96 - 107 mEq/L [facility] CO2 Total 31.3 21 - 32 mEq/L [facility] Anion Gap 5.7 mEq/L [facility] BUN 9 7 - 25 mg/dl [facility] Creatinine 0.66 (L) 0.70 - 1.30 [facility] mg/dl [facility] Estimated GFR >60 >60 [facility] Comment: [facility] EGFR UNITS: mL/min/1.73 m 2 CKD-EPI Equation used to calculate. Glucose 86 74 - 106 mg/dl [facility] Calcium 8.0 (L) 8.5 - 10.1 [facility] mg/dl [facility] Specimen Performing Organization Address City/State/ZIP Code Phon e Number [facility] [address] [place] [address] (ABNORMAL) COMPLETE BLOOD COUNT (08/18/2020 5:15 EDT) Pathologist Sig nature WBC 5.2 4.0 - 10.5 10 [facility] 3/uL [facility] RBC 2.68 (L) 4.70 - 6.00 10 [facility] 6/uL [facility] Hemoglobin 9.4 (L) 13.5 - 18.0 [facility] g/dL [facility] HCT 27.5 (L) 42.0 - 52.0 % [facility] MCV 102.6 (H) 78 - 100 fL [facility] MCH 35.1 (H) 27 - 31 pg [facility] MCHC 34.2 32 - 37 g/dL [facility] RDW-CV - PMC 15.2 (H) <14.7 % [facility] PLATELET COUNT - [facility] 233 150 - 450 10 [place] [address]/[facility] MPV 10.3 9.2 - 12.0 [facility] Specimen Performing Organization Address City/State/ZIP Code Phon e Number [facility] [address] [place] [address] documented in this encounter Visit Diagnoses Not on filedocumented in this encounter Care Teams Digital Measurement Advisor Relationship Specialty Start Date End Date Katia Mccallum PA-C PCP - General 05/02/[address] [place] [id number] documented as of this encounter
--- OUTSIDE RECORDS SUMMARY | 2021-09-28 02:20 | XMS_ITS | Encounter Summary ---
:1950 Author Organization [facility] Address [address] [place] [address] Care Team Providers Name Role Phone Katia Mccallum PA-C Primary Care Provider [phone] Encounter Details Date Type Department Care Team Description 01/16/2020 Results Only [facility] - [address]ino way, Provider, [place] [facility] [address] [place], [place] [id number] Social History Tobacco Use Types Packs/Day Years Used Date Never Smoker Smokeless Tobacco: Never Used Sex Assigned at Date Recorded Not on [...] Associated Diagnosis Comme nts BASIC METABOLIC Routine 01/16/2020 7:07 EST Resul ts for this PANEL (BMP) procedure are i n the results section. documented in this encounter Results (ABNORMAL) BASIC METABOLIC PANEL (BMP) (01/16/2020 7:07 EST) Sodium 129 (L) 136 - 145 mEq/L [facility] Potassium 3.8 3.5 - 5.1 mEq/L [facility] Chloride 95 (L) 96 - 107 mEq/L [facility] CO2 Total 27.5 21 - 32 mEq/L [facility] Anion Gap 7.5 mEq/L [facility] BUN 10 7 - 25 mg/dl [facility] Creatinine 0.64 (L) 0.70 - 1.30 [facility] mg/dl [place] [facility] Estimated GFR >60 >60 [facility] Comment: [facility] EGFR UNITS: mL/min/1.73 m 2 CKD-EPI Equation used to calculate. Glucose 91 74 - 106 mg/dl [facility] Calcium 8.4 (L) 8.5 - 10.1 [facility] mg/dl [facility] Specimen Performing Organization Address City/State/ZIP Code Phon e Number [facility] [address] [place] [address] documented in this encounter Visit Diagnoses Not on filedocumented in this encounter Care Teams Clinical Quality Rn Relationship Specialty Start Date End Date Katia Mccallum PA-C PCP - General 05/02/[address] [place] [address] documented as of this encounter
--- OUTSIDE RECORDS SUMMARY | 2021-09-28 02:20 | XMS_ITS | Encounter Summary ---
:1950 Author Organization [facility] Address [address] [place] [address] Care Team Providers Name Role Phone Katia Mccallum PA-C Primary Care Provider [phone] Reason for Visit Reason Onset Date Comments Other 05/16/2020 EKG results Encounter Details Date Type Department Care Team Description 05/16/2020 Telephone [facility] Cat Sutherland RN Othe r (EKG results) Cardiothoracic Surgery - [address] [address] Social History Tobacco Use Types Packs/Day Years [...] this encounter Miscellaneous Notes Telephone Encounter - Cat Sutherland RN - 05/16/2020 1506 EDT Patient had an EKG in January 2020. [facility] to fax report to [phone]. EKG in [facility] from [facility]. I have routed our PA Salvador Roca to see if he wants to repeat on DOSA. documented in this encounter Plan of Treatment Not on filedocumented as of this encounter Visit Diagnoses Not on filedocumented in this encounter Care Teams Blood Bank Custodian Relationship Specialty Start Date End Date Katia Mccallum PA-C PCP - General 05/02/[address] [place] [id number] documented as of this encounter
--- OUTSIDE RECORDS SUMMARY | 2021-09-28 02:20 | XMS_ITS | Encounter Summary ---
:1950 Author Organization [facility] Address [address] [place] [address] Care Team Providers Name Role Phone Katia Mccallum PA-C Primary Care Provider [phone] Reason for Referral Radiology Services (Routine) - Authorization Not Required Specialty Diagnoses / Procedures Referred By Contact Refer red To Contact Diagnoses 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, initial encounter José Miguel Roca PA-C Procedures XR CHEST 2 VIEWS [address] [phone] Referral ID Status Reason Start Expiration Visits Visits Date Date Requested Authorized [id number] Authorization Not 05/16/2020 1 1 Required Reason for Visit Radiology Services (Routine) - Authorization Not Required Specialty Diagnoses / Procedures Referred By Contact Refer red To Contact Diagnoses 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, initial encounter José Miguel Roca PA-C Procedures XR CHEST 2 VIEWS [address] [phone] Referral ID Status Reason Start Expiration Visits Visits Date Date Requested Authorized [id number] Authorization Not 05/16/2020 1 1 Required Encounter Details Date Type Department Care Team Description 05/16/2020 Hospital Encounter Medical Center Displac ement of Radiology Xray electrode fer d of Outpatient - [facility] [place] initial encounter [address] [place] [address] Social History Tobacco Use Types Packs/Day Years [...] 20mg (20) 07/01-07/14; 10mg (10) 07/15-07/28; 5mg (/2 of 10) 07/29-08/04 predniSONE (DELTASONE) 20 mg Take 30mg (20+10) 28 Tab 0 06/16/2017 tablet 06/17-06/30; 20mg (20) 07/01-07/14; 10mg (10) 07/15-07/28; 5mg (/2 of 10) 07/29-08/04 torsemide (DEMADEX) 20 mg Take 2 Tabs by 60 Tab 2 2017 tablet mouth daily. documented as of this encounter Discharge Disposition Disposition Code Departure Means Destination Home or Self Care documented in this encounter Plan of Treatment Not on filedocumented as of this encounter Procedures Procedure Name Priority Date/Time Associated Diagnosis Comme nts XR CHEST 2 VIEWS Routine 05/16/2020 11:17 Displacement of Resu lts for this EDT electrode lead of procedure are in cardiac pacemaker, the resul ts initial encounter section. documented in this encounter Results XR CHEST 2 VIEWS (05/16/2020 11:17 EDT) Anatomical Region Laterality Modality Computed Radiography Specimen Impressions [facility] - 05/16/2020 11:56 EDT 1. ??No significant change from prior. I have personally reviewed the images an d the above interpretation and agree with the findings. Narrative [facility] - 05/16/2020 11:56 EDT XR CHEST 2 VIEWS ??05/16/2020 11:00 AM CLINICAL HISTORY/COMMENTS: sob COMPARISON: Multiple prior chest radiographs most re cently June 12, 2017, CT PE June 13, 2017. TECHNIQUE: Frontal and lateral views of the chest w ere performed. FINDINGS: Soft tissues and extrathoracic findings: ??No abnormalities. Bones: Normal for age. Cardiac and mediastinal contours: Stable position of right atrial and right ventricular pacemaker leads. The cardiac silhouette is at the upper limit of normal. Lungs: Bibasilar opacities are redemonst rated. ?? Pleura/diaphragms: Bilateral pleural eff usions and right pleural calcifications are redemonstrated. Procedure Note Zia Alberto MD - 05/16/2020 XR CHEST 2 VIEWS 05/16/2020 11:00 AM CLINICAL HISTORY/COMMENTS: sob COMPARISON: Multiple prior chest radiographs most re cently June 12, 2017, CT PE June 13, 2017. TECHNIQUE: Frontal and lateral views of the chest w ere performed. FINDINGS: Soft tissues and extrathoracic findings: No abnormalities. Bones: Normal for age. Cardiac and mediastinal contours: Stable position of right atrial and right ventricular pacemaker leads. The cardiac silhouette is at the upper limit of normal. Lungs: Bibasilar opacities are redemonst rated. Pleura/diaphragms: Bilateral pleural eff usions and right pleural calcifications are redemonstrated. IMPRESSION 1. No significant change from prior. I have personally reviewed the images an d the above interpretation and agree with the findings. Performing Organization Address City/State/ZIP Code Phon e Number [facility] documented in this encounter Visit Diagnoses Diagnosis Displacement of electrode lead of cardia c pacemaker, initial encounter documented in this encounter Care Teams Pharmacist In Charge Relationship Specialty Start Date End Date Katia Mccallum PA-C PCP - General 05/02/[address] [place] [id number] documented as of this encounter
--- OUTSIDE RECORDS SUMMARY | 2021-09-28 02:20 | XMS_ITS | Encounter Summary ---
:1950 Author Organization [facility] Address [address] [place] [address] Care Team Providers Name Role Phone Katia Mccallum PA-C Primary Care Provider Reason for Visit Reason Onset Date Comments Coordination Of Care 11/30/2019 Follow-up 12/02/2019 Follow-up 12/22/2019 Pacemaker Problem 12/23/2019 Encounter Details Date Type Department Care Team Description 11/30/2019 Telephone [facility] Yariel Rosenberg MD Coordination Of Care; Cardiology - [address] Follow-up; Follow-up; [address] Pacemaker Problem So [address] [address] Social History Tobacco Use Types Packs/Day Years [...] this encounter Miscellaneous Notes Telephone Encounter - Belinda Falk RN - 12/23/2019 1551 EDT See other message from 12/22. elephone Encounter - Tony Tim - 12/23/2019 1317 EDT Patient calling back here to speak to someone about having the wire in his pacemaker fixed/replaced. Please call back to discuss. elephone Encounter - Jada Ochoa - 12/22/2019 1522 EDT Patient is calling back to follow up. Please call back. elephone Encounter - Vick Ziegler - 12/22/2019 1317 EDT Patient calling to follow up about broken wire on pace maker and is asking to speak with provider. Please call to discuss. elephone Encounter - Tony Tim - 12/02/2019 0951 EDT Patient has not heard from Dr Rosenberg about the broken lead in his device and he really needs to haveit replaced. Please call back to consult. elephone Encounter - Tony Tim - 11/30/2019 1539 EDT Angela is calling to speak to Dr Rosenberg about patient. She states that patient is supposed to be having a lead replaced in his device, but that he is symptomatic. He is not scheduled for that procedure yet. Please call back to discuss documented in this encounter Plan of Treatment Not on filedocumented as of this encounter Visit Diagnoses Not on filedocumented in this encounter Care Teams Landscape Specialist Relationship Specialty Start Date End Date Katia Mccallum PA-C PCP - General 05/02/[address] [place] [address] documented as of this encounter
--- OUTSIDE RECORDS SUMMARY | 2021-09-28 02:20 | XMS_ITS | Encounter Summary ---
:1950 Author Organization [facility] Address [address] [place] [address] Care Team Providers Name Role Phone Katia Mccallum PA-C Primary Care Provider [phone] Encounter Details Date Type Department Care Team Description 05/16/2020 Documentation Visit [facility] Ja Browne MD Infectious Disease - [address] [place] [address], [address] [place], [place] [address] [place] [address] [phone] (Wo rk) Social History Tobacco Use Types Packs/Day Years Used Date Never Smoker Smokeless Tobacco: Never Used Sex Assigned at Date Recorded Not on file documented as of this encounter Last Filed Vital Signs Vital Sign Reading Time Taken Comments Blood Pressure - - Pulse 66 05/16/2020 0947 EDT Temperature 36.1 ??C (97 ??F) 05/16/2020 0947 EDT Respiratory Rate - - Oxygen Saturation 97% 05/16/2020 0947 EDT Inhaled Oxygen Concentration - - Weight - - Height - - Body Mass Index - - documented in this encounter Functional Status Functional Status Response [...] documented as of this encounter Progress Notes Missy Thomson, TISH - 05/16/2020 0947 EDT Upon entering the [facility], patient answered yes to one of the screening questions asked by the Welcoming Specialist. Patient referred to the Outpatient Assessment Center (OAC) for additional screening. Upon arrival to the OAC, vital signs completed by Iva BUCKLEY, while this RN reviewed the patient's chart. Vitals: 05/16/20 0947 Pulse: 66 Temp: 36.1 ??C (97 ??F) TempSrc: Tympanic SpO2: 97% Patient brought to assessment area with this RN. Patient endorses the following COVID-19 symptoms: cough and shortness of breath. Patient reports an appointment in the Cardiothoracic (CT) Surgery Clinic today. This RN called clinic and spoke with Lucy TADEO about patient's appointment. Made them aware that patient had symptoms of COVID-19 that were explained by previous diagnosis and/or chronic disease. Sticker applied to entry point screening notification sheet recommending addition of eye protection (unable to wear mask over his nose) while in the Cardiothoracic (CT) Surgery Clinic. At conclusion of Outpatient Assessment Center visit, patient sent to appointment. Kem Thomson RN, [id number] documented in this encounter Plan of Treatment Not on filedocumented as of this encounter Visit Diagnoses Not on filedocumented in this encounter Care Teams Cooky Packer Relationship Specialty Start Date End Date Katia Mccallum PA-C PCP - General 05/02/[address] [place] [id number] documented as of this encounter
--- OUTSIDE RECORDS SUMMARY | 2021-09-28 02:20 | XMS_ITS | Encounter Summary ---
:1950 Author Organization [facility] Address [address] [place] [address] Care Team Providers Name Role Phone Katia Mccallum PA-C Primary Care Provider [phone] Encounter Details Date Type Department Care Team Description 01/13/2020 Results Only [facility]- Jayesh Baldwin, [address] [place] [phone] (Wo rk) Social History Tobacco Use [...] Name Priority Date/Time Associated Diagnosis Comme nts SODIUM Routine 01/13/2020 18:50 EST Results for this procedure are i n the results section . SODIUM Routine 01/13/2020 13:12 EST Results for this procedure are i n the results section . documented in this encounter Results (ABNORMAL) SODIUM (01/13/2020 18:50 EST) Pathologist Sig nature Sodium 122 (L) 136 - 145 mEq/L [facility] Specimen Performing Organization Address [facility] Phon e Number [facility] [address] [place] [address] (ABNORMAL) SODIUM (01/13/2020 13:12 EST) Pathologist Sig nature Sodium 126 (L) 136 - 145 mEq/L [facility] Specimen Performing Organization Address [facility] [address] [place] [address] documented in this encounter Visit Diagnoses Not on filedocumented in this encounter Care Teams Breaker Hand Relationship Specialty Start Date End Date Katia Mccallum PA-C PCP - General 05/02/[address] [place] [id number] documented as of this encounter
--- OUTSIDE RECORDS SUMMARY | 2021-09-28 02:20 | XMS_ITS | Encounter Summary ---
:1950 Author Organization [facility] Address [address] [place] [address] Care Team Providers Name Role Phone Katia Mccallum PA-C Primary Care Provider [phone] Reason for Visit Reason Onset Date Comments Confirmation 05/08/2020 Encounter Details Date Type Department Care Team Description 05/08/2020 Telephone [facility] Cherie Browne MD Confirmation Cardiothoracic Surgery - [address] [place] [address], [address], [address] [place], [place] [address] [place] [address] [phone] (Wo rk) Social History Tobacco Use Types Packs/Day Years Used Date Never Smoker Smokeless Tobacco: Never Used Sex Assigned at Date Recorded Not on file COVID-19 Exposure Response Date Recorded In the last month, have you been in contact with someone Yes 04/10/2020 11:05 EST who was confirmed or suspected to have Coronavirus / COVID-19? documented as of this encounter Functional Status [...] this encounter Miscellaneous Notes Telephone Encounter - Melania Dumas - 05/08/2020 1128 EST Spoke with Walker higgins [place] and confirmed patient's appointment with Dr. Browne for 05/16/2020 at 9:30 am. documented in this encounter Plan of Treatment Not on filedocumented as of this encounter Visit Diagnoses Not on filedocumented in this encounter Care Teams Color Weigher Relationship Specialty Start Date End Date Katia Mccallum PA-C PCP - General 05/02/[address] [place] [id number] documented as of this encounter
--- OUTSIDE RECORDS SUMMARY | 2021-09-28 02:20 | XMS_ITS | Encounter Summary ---
:1950 Author Organization [facility] Address [address] [place] [address] Care Team Providers Name Role Phone Katia Mccallum PA-C Primary Care Provider [phone] Reason for Visit Reason Onset Date Comments Appointment Related 06/06/2020 Encounter Details Date Type Department Care Team Description 06/06/2020 Telephone [facility] Cherie Browne MD Appointment Related Cardiothoracic Surgery - [address] [place] [address], [address], [address] [place], [place] [address] [place] [address] [phone] (Wo rk) Social History Tobacco Use [...] Notes Telephone Encounter - Alma Dhillon - 06/06/2020 3795 EDT At her request, I have telephoned Nurse Associate Sales Representative, Nila, at [facility] to advise of this patient's surgery date. It is Monday 06/26 beginning @ 1:00 pm. This will involve Lorraine Maharaj. I was unable to reach Nila, but left a message requesting her to phone our office, if she hadany questions. documented in this encounter Plan of Treatment Not on filedocumented as of this encounter Visit Diagnoses Not on filedocumented in this encounter Care Teams Turf Keeper Relationship Specialty Start Date End Date Katia Mccallum PA-C PCP - General 05/02/[address] [place] [id number] documented as of this encounter
--- OUTSIDE RECORDS SUMMARY | 2021-09-28 02:20 | XMS_ITS | Encounter Summary ---
:1950 Author Organization [facility] Address [address] [place] [address] Care Team Providers Name Role Phone Katia Mccallum PA-C Primary Care Provider [phone] Encounter Details Date Type Department Care Team Description 01/17/2020 Results Only [facility]- Jayesh Baldwin, [address] [place] [phone] (Wo rk) Social History Tobacco Use [...] Name Priority Date/Time Associated Diagnosis Comme nts CORTISOL, S PMC Routine 01/17/2020 7:50 EST Resul ts for this TEMP procedure are i n the results section. BASIC METABOLIC Routine 01/17/2020 7:50 EST Resul ts for this PANEL,RANDOM - PMC procedure are in the results section. documented in this encounter Results CORTISOL, S PMC TEMP (01/17/2020 7:50 EST) Pathologist Sig nature Cortisol, S SEE COMMENTS [facility] Comment: [facility] Test ?Result ?Flag ??Unit ?RefValue ------ Cortisol, S ??AM Result ? 11 ?mcg/dL ??7-25 Test Performed by: [facility] [address] [place] [address] Bail Bond Agent: Pierre Andersen M.D. Ph.D.; CLIA# [id number] Specimen Performing Organization Address City/State/ZIP Code Phon e Number [facility] [address] [place] [address] (ABNORMAL) BASIC METABOLIC PANEL,RANDOM - PMC (01/17/2020 7:50 EST) Sodium 130 (L) 136 - 145 mEq/L [facility] Potassium 3.7 3.5 - 5.1 mEq/L [facility] Chloride 95 (L) 96 - 107 mEq/L [facility] CO2 Total 27.4 21 - 32 mEq/L [facility] Anion Gap 7.6 mEq/L [facility] BUN 10 7 - 25 mg/dl [facility] Creatinine 0.62 (L) 0.70 - 1.30 [facility] mg/dl [facility] Estimated GFR >60 >60 [facility] Comment: [facility] EGFR UNITS: mL/min/1.73 m 2 CKD-EPI Equation used to calculate. Glucose 91 70 - 180 mg/dl [facility] Calcium 8.4 (L) 8.5 - 10.1 [facility] mg/dl [facility] Specimen Performing Organization Address City/State/ZIP Code Phon e Number [facility] [address] [place] [address] documented in this encounter Visit Diagnoses Not on filedocumented in this encounter Care Teams Safety Intern Relationship Specialty Start Date End Date Katia Mccallum PA-C PCP - General 05/02/[address] [place] [id number] documented as of this encounter
--- OUTSIDE RECORDS SUMMARY | 2021-09-28 02:20 | XMS_ITS | Encounter Summary ---
:1950 Author Organization [facility] Address [address] [place] [address] Care Team Providers Name Role Phone Katia Mccallum PA-C Primary Care Provider [phone] Reason for Visit Reason Comments Arrhythmia Encounter Details Date Type Department Care Team Description 10/13/2019 Office Visit [facility] Tony Rosenberg, Heart block AV third Cardiology - Nicolasa OAKES degree ([facility] [address] (Primary Dx) [place] [address] [address] [facility] [phone] [place] [address] Social History Tobacco Use Types Packs/Day Years Used Date Never Smoker Smokeless Tobacco: Never Used Sex Assigned at Date Recorded Not on file COVID-19 Exposure Response Date Recorded In the last month, have you been in contact with No / Unsure 10/08/2019 17:48 EDT someone who was confirmed or suspected to have [...] documented as of this encounter Progress Notes Tony Rosenberg MD - 10/13/2019 1600 EDT Subjective: Patient ID: Tim Mera is an 69 y.o. male. No chief complaint on file. HPI Mr. Mera presented with CHB in 04/2017. He had a BSI DDD PPM inserted without incident. Initially, he felt quit well but approximately 3 weeks post implant he developed significant SOB. He presented with pleural and pericardial effusions. The effusions were drained and the leads were repositioned. Hehad another hospitalization for CHF felt to be secondary to the effusion. This was treated with NSAIDS, colchicine and prednisone. Mr. Mera then felt better but began to experience electric shocks around the PPM. Interrogation of the device demonstrated a rising atrial lead impedance consistent with intermittent conductor failure. The atrial lead was reprogrammed to unipolar pacing with normalization of atrial lead impedance. Atrial lead is sensing in bipolar mode with evidence of intermittent artifact on the intracardiac electrogram. Mr. Mera continues to be frustrated about intermittent shocks from the PPM. He denies chest pain, orthopnea or PND. He has not had syncope or near syncope. He has been compliant with his medical therapy. Patient Active Problem List Diagnosis ??? Heart block AV third degree (HCC-CMS) ??? Hypertensive urgency ??? Hyponatremia ??? Subacute effusive constrictive pericarditis ??? Acute pericarditis ??? Heart failure (HCC-CMS) History reviewed. No pertinent past medical history. History reviewed. No pertinent surgical history. History reviewed. No pertinent family history. Social Social History Socioeconomic History ??? Marital status: Single Spouse name: Not on file ??? Number of children: Not on file ??? Years of education: Not on file ??? Highest education level: Not on file Occupational History ??? Not on file Social Needs ??? Financial resource strain: Not on file ??? Food insecurity Worry: Not on file Inability: Not on file ??? Transportation needs Medical: Not on file Non-medical: Not on file Tobacco Use ??? Smoking status: Never Smoker ??? Smokeless tobacco: Never Used Substance and Sexual Activity ??? Alcohol use: Not on file ??? Drug use: No ??? Sexual activity: Not on file Lifestyle ??? Physical activity Days per week: Not on file Minutes per session: Not on file ??? Stress: Not on file Relationships ??? Social connections Talks on phone: Not on file Gets together: Not on file Attends yazdanism service: Not on file Active member of club or organization: Not on file Attends meetings of clubs or organizations: Not on file Relationship status: Not on file ??? Intimate partner violence Fear of current or ex partner: Not on file Emotionally abused: Not on file Physically abused: Not on file Forced sexual activity: Not on file Other Topics Concern ??? Not on file Social History Narrative ??? Not on file Current Outpatient Medications on File Prior to Visit Medication Sig Dispense Refill ??? acetaminophen (TYLENOL) 500 mg tablet Take 1,000 mg by mouth 2 times daily. ??? colchicine (COLCRYS) 0.6 mg tablet Take 1 Tab by mouth 2 times daily. 60 Tab 0 ??? metoprolol (LOPRESSOR) 25 mg tablet Take 1 Tab by mouth 2 times daily. 60 Tab 3 ??? predniSONE (DELTASONE) 10 mg tablet Take 30mg (20+10) 06/17-06/30; 20mg (20) 07/01-07/14; 10mg (10) 07/15-07/28; 5mg (1/2 of 10) 07/29-08/04 32 Tab 0 ??? predniSONE (DELTASONE) 20 mg tablet Take 30mg (20+10) 06/17-06/30; 20mg (20) 07/01-07/14; 10mg (10) 07/15-07/28; 5mg (1/2 of 10) 07/29-08/04 28 Tab 0 ??? torsemide (DEMADEX) 20 mg tablet Take 2 Tabs by mouth daily. 60 Tab 2 No current facility-administered medications on file prior to visit. No Known Allergies Review of Systems Constitutional: Negative for malaise/fatigue and weight loss. HENT: Negative for hearing loss. Respiratory: Negative for shortness of breath. Cardiovascular: Positive for palpitations. Negative for chest pain, orthopnea, claudication, leg swelling and PND. Gastrointestinal: Negative for heartburn. Musculoskeletal: Positive for joint pain. Neurological: Negative for dizziness. Endo/Heme/Allergies: Does not bruise/bleed easily. - See HPI Objective: There were no vitals taken for this visit. Physical Exam Vitals signs and nursing note reviewed. Constitutional: Appearance: He is well-developed and well-nourished. HENT: Mouth/Throat: Mouth: Mucous membranes are moist. Cardiovascular: Rate and Rhythm: Normal rate and regular rhythm. Heart sounds: Normal heart sounds. Comments: PPM in the left chest Pulmonary: Effort: Pulmonary effort is normal. Breath sounds: Normal breath sounds. Abdominal: Palpations: Abdomen is soft. Musculoskeletal: General: No edema. Skin: General: Skin is warm. Neurological: Mental Status: He is alert and oriented to person, place, and time. PPM interrogation: reviewed Assessment/Plan: In summary, Mr. Mera is a pleasant gentleman with CHB s/p PPm insertion complicated by pericardialeffusion and need to reposition both the a end of the lead. He then developed pericarditis and was treated with nonsteroidals. At this time it looks like the atrial lead outer conductor has failed. Thepatient feels that the device is giving him electric shocks. The atrial lead impedance is normal. I had a long discussion with Mr. Mera regarding treatment for the atrial lead. Those options include atrial lead replacement and removal of the current lead versus capping the currently. After hearing the risks and benefits of each of these approaches Mr. Mera is leaning towards having the lead explanted and a new lead implanted. The risks and benefits of lead extraction were discussed in detail with Mr. Mera. Plans: Continue current medical therapy Likely atrial lead removal and new lead insertion. Tony Rosenberg MD - 10/13/2019 1600 EDT Dictated. documented in this encounter Plan of Treatment Not on filedocumented as of this encounter Visit Diagnoses Diagnosis Heart block AV third degree (HCC-CMS) (H CC) - Primary Atrioventricular block, complete documented in this encounter Care Teams Freelance Operator Relationship Specialty Start Date End Date Katia Mccallum PA-C PCP - General 05/02/17 [address] [place] [id number] documented as of this encounter
--- OUTSIDE RECORDS SUMMARY | 2021-09-28 02:20 | XMS_ITS | Encounter Summary ---
:1950 Author Organization [facility] Address [address] [place] [address] Care Team Providers Name Role Phone Katia Mccallum PA-C Primary Care Provider [phone] Encounter Details Date Type Department Care Team Description 12/12/2018 Results Only [facility] - Candelaria Vila MD [facility] Lab [address] [place] [address] [address], [place] [address] (Wo rk) Social History Tobacco Use [...] Procedure Name Priority Date/Time Associated Comments Diagnosis PROCALCITONIN - PMC Routine 12/12/2018 22:16 Resu lts for this EDT procedure are i n the results section. HEPATIC FUNCTION PANEL Routine 12/12/2018 22:16 R esults for this (ALB,ALK EDT procedure are i n PHOS,ALT,AST,DBIL,TOT the re sults BOSSMAN,TOT PROT) section. BNP Routine 12/12/2018 22:15 Results for this EDT procedure are i n the results section. BASIC METABOLIC Routine 12/12/2018 22:06 Results for this PANEL,RANDOM - PMC EDT procedure are in the results section. TROPONIN I Routine 12/12/2018 22:06 Results for this EDT procedure are i n the results section. documented in this encounter Results (ABNORMAL) HEPATIC FUNCTION PANEL (ALB,ALK PHOS,ALT,AST,DBIL,TOT BOSSMAN,TOT PROT) (12/12/2018 22:16 EDT) Pathologist Sig nature BILIRUBIN - PMC 0.40 0.00 - 1.00 [facility] mg/dl CENTER LAB DIRECT BILIRUBIN - PMC 0.10 0.00 - 0.30 [facility] mg/dl CENTER LAB INDIRECT BILIRUBIN - 0.30 0.00 - 0.80 [facility] PMC mg/dl [facility]ENTER [facility] AST 68 (H) 15 - 37 U/L [facility] ALT 53 12 - 78 U/L [facility] Alkaline Phosphatase 98 46 - 116 U/L [facility] Total Protein 7.4 6.4 - 8.2 g/dl [facility] Albumin 3.0 (L) 3.4 - 5.0 g/dl [facility] GLOBULIN - PMC 4.4 g/dl [facility] ALBUMIN/GLOBULIN RATIO 0.6 [facility] LAB Specimen Performing Organization Address City/State/ZIP Code Phon e Number [facility] [address] [place] [address] [facility] PROCALCITONIN - PMC (12/12/2018 22:16 EDT) Procalcitonin <0.05 <0.50 ng/mL [facility] Comment: CENTER LAB Concentration of < 0.5 ng/mL represents a low risk of severe sepsis and/or septic shock. It is recommended to retest PCT within 6-24 hours if a ny concentrations < 2 ng/mL are obtained. Concentrations < 0.5 ng/mL do not exclude an infection , on account of localized infections (without systemic sign s) which can be associated with such low concentrations, or a systemic infection in its initial stages (< 6 hours). Furthermore, increased procalcitonin can occur without infection. Specimen Performing Organization Address [facility] [address] [place] [address] LAB (ABNORMAL) BNP - PMC (12/12/2018 22:15 EDT) Pathologist [facility] B-TYPE NATRIURETIC 123 (H) <100 pg/mL [facility] PEPTIDE - [facility] LAB Specimen Performing Organization Address [facility] [address] [place] [address] LAB TROPONIN I (12/12/2018 22:06 EDT) Pathologist [facility] Troponin I (ng/mL) <0.05 <0.10 ng/ml [facility] Comment: CENTER LAB REFERENCE RANGE: Negative: ? <0.10 ng/mL Indeterminate: 0.10-0.80 ng/mL Positive: ? >0.80 ng/mL ........................................... The results of this assay can be falsely decreased due to the consumption of Biotin. Specimen Performing Organization Address [facility] [address] [place] [address] LAB (ABNORMAL) BASIC METABOLIC PANEL,RANDOM - PMC (12/12/2018 22:06 EDT) Sodium 120 (L) 136 - 145 [facility] mEq/L [facility] Potassium 4.6 3.5 - 5.1 [facility] mEq/L [facility] Chloride 86 (L) 96 - 107 [facility] mEq/L [facility] CO2 Total 25.2 21 - 32 mEq/L [facility] Anion Gap 8.8 mEq/L [facility] BUN 7 7 - 25 mg/dl [facility] Creatinine 0.61 (L) 0.7 - 1.30 [facility] mg/dl CENTER LAB Estimated GFR >60 >60 [facility] Comment: CENTER LAB EGFR UNITS: mL/min/1.73 m 2 CKD-EPI Equation used to calculate. GLUCOSE,RANDOM - 89 70 - 180 [facility] PMC mg/dl [facility] Calcium 8.1 (L) 8.5 - 10.5 [facility] mg/dl [facility] Specimen Performing Organization Address City/State/[facility] Code Phon e Number [facility] [address] [place] [address] [facility] documented in this encounter Visit Diagnoses Not on filedocumented in this encounter Care Teams Gut Sorter Relationship Specialty Start Date End Date Katia Mccallum PA-C PCP - General 05/02/17 [address] [place] [address] documented as of this encounter
--- OUTSIDE RECORDS SUMMARY | 2021-09-28 02:20 | XMS_ITS | Encounter Summary ---
:1950 Author Organization [facility] Address [address] [place] [address] Care Team Providers Name Role Phone Katia Mccallum PA-C Primary Care Provider [phone] Reason for Visit Reason Onset Date Comments Medication Questions 07/16/2017 Encounter Details Date Type Department Care Team Description 07/16/2017 Telephone [facility] Caitie Atwood, dication Questions Cardiology - Chaitanya LACE ROLLER 62 Chaitanya Fontenot [address] [place] [address] (Wo rk) Social History Tobacco [...] Telephone Encounter - Belinda Falk RN - 07/16/2017 1508 EDT Spoke with Yessica, relayed message regarding Colchicine 0.6mg BID. Patient to remain on medication and can be addressed when he FU with Dr. Rosenberg on August 06. Yessica expressed understanding and will complete refill. elephone Encounter - Pily Rucker - 07/16/2017 1413 EDT Reason for Call: Medication Questions Summary/Symptoms: Yessica just spoke with Caitie Atwood and had a further question about Colchicin andwhether patient is supposed to still be taking twice daily or not Please call back as soon as possible Pily Rucker 07/16/2017 14:14 documented in this encounter Plan of Treatment Not on filedocumented as of this encounter Visit Diagnoses Not on filedocumented in this encounter Care Teams Otolaryngology Physician Relationship Specialty Start Date End Date Katia Mccallum PA-C PCP - General 05/02/[address] [place] [id number] documented as of this encounter
--- OUTSIDE RECORDS SUMMARY | 2021-09-28 02:20 | XMS_ITS | Encounter Summary ---
:1950 Author Organization [facility] Address [address] [place] [address] Care Team Providers Name Role Phone Katia Mccallum PA-C Primary Care Provider [phone] Reason for Visit Reason Onset Date Comments Labs Only 05/17/2020 Lab orders for pre-o p blood work Encounter Details Date Type Department Care Team Description 05/17/2020 Telephone [facility] Cherie Browne MD Labs Only (Lab Cardiothoracic Surgery - [address] orders for pre-op [facility] blood work) [address] [facility], [address] [place], [place] [address] [place] [address] [phone] [address] (Wo rk) Social History Tobacco Use [...] Telephone Encounter - Cat Sutherland RN - 05/17/2020 1115 EDT Cardiothoracic Surgery Update Note in Epic regarding blood draw arrangement and process in my note of 05/16. Explained again to AnnCase Light Cleaner. elephone Encounter - Melania uDmas - 05/17/2020 1044 EDT Nila (platform beater from [facility]) calling to find out if patient's lab orders were faxed to [place]. Per Nila, patient did not have his blood drawn while here at [facility] on 05/16/2020. Laminating Machine Feeder explained to caller that patients are usually unable to have pre-op blood bank done at any other facilitybut junior technical writer will defer to CT Surgery RN. Nila requesting return call to [phone], extension: 7. documented in this encounter Plan of Treatment Not on filedocumented as of this encounter Visit Diagnoses Not on filedocumented in this encounter Care Teams Refrigeration Service Technician Relationship Specialty Start Date End Date Katia Mccallum PA-C PCP - General 05/02/[address] [place] [id number] documented as of this encounter
--- OUTSIDE RECORDS SUMMARY | 2021-09-28 02:20 | XMS_ITS | Encounter Summary ---
:1950 Author Organization [facility] Address [address] [place] [address] Care Team Providers Name Role Phone Katia Mccallum PA-C Primary Care Provider [phone] Reason for Visit Reason Onset Date Comments Labs Only 05/11/2020 Encounter Details Date Type Department Care Team Description 05/11/2020 Telephone [facility] Acute Ja Young MD Labs Only Care Surgery [address] [address], [place], [place] [address] (Wo rk) Social History Tobacco Use Types [...] Encounter - Cat Sutherland RN - 05/16/[address] Surgery Update Patient did not stop at the Lab for his blood work even though I reviewed with him, gave him writteninstructions and also reviewed this with the Radiology front services agent on [facility] 3 that he would need to be taken to the lab on Level 2 following his chest x-ray. They did not take him. I will re-enter the orders for the CBC to have drawn at [facility] which is closest to the patient's home he states. I have routed our CT PACHECO Salvador STOUT to re-enter the Type and Screen/ x match order to be drawn in pre-op hold on the dosa. Pt made aware to go to [facility] to have the CBC drawn on 05/17 or 05/18. I confirmed with the Lab there that it's the CBC that needs to be drawn. Graduate Advisor verbalized understanding and no appt needed. Pt also verbalized understanding. elephone Encounter - Doris Mera MA - 05/11/2020 0851 EST Spoke to Tim to confirm appt on 05/16/20 at 9;30 am , He is aware of visitor policy as well, will bein wheelchair . documented in this encounter Plan of Treatment Not on filedocumented as of this encounter Visit Diagnoses Not on filedocumented in this encounter Care Teams Glove Turner And Former Automatic Relationship Specialty Start Date End Date Katia Mccallum PA-C PCP - General 05/02/[address] [place] [id number] documented as of this encounter
--- OUTSIDE RECORDS SUMMARY | 2021-09-28 02:20 | XMS_ITS | Encounter Summary ---
:1950 Author Organization [facility] Address [address] [place] [address] Care Team Providers Name Role Phone Katia Mccallum PA-C Primary Care Provider Encounter Details Date Type Department Care Team Description 12/12/2018 Results Only [facility] - Candelaria Vila MD Imaging [facility] [address] [facility] Radiology Results [facility], [address], [address] [place], [place] [address] [place] [phone] (Wo rk) Social History Tobacco Use Types [...] Diagnosis Comme nts XR CHEST 2 VIEWS 12/12/2018 22:15 EDT Res ults for this procedure are i n the results section. documented in this encounter Results XR CHEST 2 VIEWS (12/12/2018 22:15 EDT) Specimen Narrative [facility] RADIOLOGY - 2018 22:15 EDT ?[facility]: [facility] ?[address] ?[place] [address] ?Diagnostic Imaging Report ? Signed ? Patient Name:DAVID FARFAN ? Date of :1950 ?MR Number:[id number] ? Age:68 ?Sex:M ? Category: CR ?Date of Exam:12/12/18 ? Procedure: CR: Chest; Frontal/LAT views ? 302 ? Ordering Physician: Wang Vila MD ? CC: ?? Katia Mccallum ?? Gabriela Vila MD ? PROCEDURE INFORMATION: ?? Exam: XR Chest, 2 Views ?? Exam date and time: 12/12/2018 10:15 PM ?? Clinical history: 68 years old, male; S hortness of breath; Prior surgery; ?? Surgery date: 6+ months; Surgery type: Pacemaker; Additional info: SOB ? TECHNIQUE: ?? Imaging protocol: XR of the chest ?? Views: 2 views. ? COMPARISON: ?? CR Chest; two view PA/Lat 05/28/2018 12: 59 AM ? FINDINGS: ?? Tubes, catheters and devices: There is a left chest wall cardiac dual lead ?? pacer in unchanged position. ?? Lungs: No pulmonary vascular congestion . There is mild left basilar ?? atelectasis. There is linear scarring i n the upper right lung. There is right ?? lower lung patchy airspace opacity like ly representing atelectasis and/or ?? pneumonia. ?? Pleural space: Bilateral small pleural effusions. No pneumothorax. There is ?? unchanged right pleural thickening and calcification. ?? Heart/Mediastinum: The cardiomediastina l silhouette is stable with top normal ?? to mildly enlarged cardiac size. ?? Bones/joints: No acute findings. ? IMPRESSION: ?? 1. Right lower lung patchy opacity like ly representing atelectasis and/or ?? pneumonia. Linear atelectasis and/or sc arring in the right upper lung and left ?? lower lung. ?? 2. Bilateral pleural effusions. Stable chronic right pleural thickening and ?? calcification. ? Report signed by: Alma Sherwood On ??23:27:20 ?? For any questions regarding this report , please contact the [facility] at [phone] ? Dictated by: Alma Sherwood DO ?D/ ?? 2215 ?? Transcribed by: GABE ?D/T: ? E-Signed by: Alma Sherwood DO ?D/ ?? 2327 ? Procedure Note Alma Sherwood MD - [facility] [address] [address] Diagnostic Imaging Report Signed Patient Name:DAVID FARFAN r:[id number] Date of :1950 MR Number:[id number] Age:68 Sex:M Category: CR Date of Exam:12/12/18 Procedure: CR: Chest; Frontal/LAT views 302 Ordering Physician: Wang Vila MD CC: Katia Mccallum Skylar MD PROCEDURE INFORMATION: Exam: XR Chest, 2 Views Exam date and time: 12/12/2018 10:15 PM Clinical history: 68 years old, male; S hortness of breath; Prior surgery; Surgery date: 6+ months; Surgery type: Pacemaker; Additional info: SOB TECHNIQUE: Imaging protocol: XR of the chest Views: 2 views. COMPARISON: CR Chest; two view PA/Lat 05/28/2018 12: 59 AM FINDINGS: Tubes, catheters and devices: There is a left chest wall cardiac dual lead pacer in unchanged position. Lungs: No pulmonary vascular congestion . There is mild left basilar atelectasis. There is linear scarring i n the upper right lung. There is right lower lung patchy airspace opacity like ly representing atelectasis and/or pneumonia. Pleural space: Bilateral small pleural effusions. No pneumothorax. There is unchanged right pleural thickening and calcification. Heart/Mediastinum: The cardiomediastina l silhouette is stable with top normal to mildly enlarged cardiac size. Bones/joints: No acute findings. IMPRESSION: 1. Right lower lung patchy opacity like ly representing atelectasis and/or pneumonia. Linear atelectasis and/or sc arring in the right upper lung and left lower lung. 2. Bilateral pleural effusions. Stable chronic right pleural thickening and calcification. Report signed by: Alma Sherwood On 23:27:20 For any questions regarding this report , please contact the [facility] at [phone] Dictated by: Alma Sherwood DO D/T: 2210 Transcribed by: GABE Barriga/T: E-Signed by: Alma Sherwood/T: [id number] Performing Organization Address City/State/ZIP Code Phon e Number [facility] RADIOLOGY documented in this encounter Visit Diagnoses Not on filedocumented in this encounter Care Teams Fieldwork Coordinator Relationship Specialty Start Date End Date Katia Mccallum PA-C PCP - General 05/02/[address] [place] [id number] documented as of this encounter
--- OUTSIDE RECORDS SUMMARY | 2021-09-28 02:20 | XMS_ITS | Encounter Summary ---
:1950 Author Organization [facility] Address [address] [place] [address] Care Team Providers Name Role Phone Katia Mccallum PA-C Primary Care Provider Encounter Details Date Type Department Care Team Description 06/18/2018 Historical Results Health system - Katia Mccallum Only [facility] [address] [facility] [address] [place] [address] [phone] Social History Tobacco Use Types Packs/Day Years [...] Name Priority Date/Time Associated Diagnosis Comme nts HEPATIC & CMP Routine 06/18/2018 12:14 Results fo r this COMBO,FASTING - [facility] EDT procedur e are in the results section. documented in this encounter Results (ABNORMAL) HEPATIC & CMP COMBO,FASTING - [facility] (06/18/2018 12:14 EDT) Sodium 125 (L) 136 - 145 [facility] Potassium 4.9 3.5 - 5.1 [facility] Chloride 88 (L) 96 - 107 [facility] CO2 Total 27.6 21 - 32 [facility] Anion Gap 8.4 [facility] BUN 8 7 - 25 [facility] Creatinine 0.69 (L) 0.7 - 1.30 [facility] Estimated GFR >60 >60 [facility] Comment: [facility]ENTER [facility] EGFR UNITS: mL/min/1.73 m 2 CKD-EPI Equation used to calculate. Glucose 86 FASTIN-99 [facility] Calcium 8.4 (L) 8.5 - 10.5 [facility] CALCIUM,CORRECTED - 8.9 8.5 - 10.5 [facility] BILIRUBIN - [facility] 0.60 0.00 - 1.00 [facility] AST 63 (H) 15 - 37 [facility] ALT 58 12 - 78 [facility] Alkaline Phosphatase 94 46 - 116 [facility] Total Protein 7.3 6.4 - 8.2 [facility] Albumin 3.4 3.4 - 5.0 [facility] GLOBULIN - [facility] 3.9 [facility] ALBUMIN/GLOBULIN 0.8 [facility] RATIO - [facility] Specimen Performing Organization Address City/State/ZIP Code Phon e Number [facility] [address] [place] [address] [facility] documented in this encounter Visit Diagnoses Not on filedocumented in this encounter Care Teams Duplicate Maker Relationship Specialty Start Date End Date Katia Mccallum PA-C PCP - General 05/02/[address] [facility] [place] [place] [address] documented as of this encounter
--- OUTSIDE RECORDS SUMMARY | 2021-09-28 02:20 | XMS_ITS | Encounter Summary ---
:1950 Author Organization [facility] Address [address] [place] [address] Care Team Providers Name Role Phone Katia Mccallum PA-C Primary Care Provider [phone] Encounter Details Date Type Department Care Team Description 07/19/2018 Historical Results [facility] - Vick Limon Only [facility] [address] [place] [address] [phone] Social History Tobacco Use Types Packs/Day Years [...] Procedure Name Priority Date/Time Associated Comments Diagnosis BASIC METABOLIC Routine 07/19/2018 18:30 Results for this PANEL,RANDOM - [facility] EDT procedure are in the results section. COMPLETE BLOOD COUNT Routine 07/19/2018 18:30 Res ults for this AND DIFFERENTIAL EDT procedure a re in the results section. POCT GLUCOSE Routine 07/19/2018 18:21 Results for this (NURSING) - [facility] EDT procedure ar e in the results section. documented in this encounter Results (ABNORMAL) COMPLETE BLOOD COUNT AND DIFFERENTIAL (07/19/2018 18:30 EDT) Pathologist Sig nature WBC 8.1 4.0 - 10.5 [facility] RBC 3.65 (L) 4.70 - 6.00 [facility] Hemoglobin 12.5 (L) 13.5 - 18.0 [facility] HCT 34.2 (L) 42.0 - 52.0 [facility] MCV 93.7 78 - 100 [facility] MCH 34.2 (H) 27 - 31 [facility] MCHC 36.5 (H) 32 - 36 [facility] RDW-CV - [facility] 12.4 11.5 - 14.0 [facility] PLATELET COUNT - [facility] 158 150 - 450 [facility] NEUTROPHILS % (AUTO) - 63.5 42.0 - 75.0 [facility] LYMPHOCYTES % (AUTO) - 22.6 16.0 - 52.0 [facility] MONOCYTES % (AUTO) - 9.6 1.0 - 11.0 [facility] EOSINOPHILS % (AUTO) - 2.9 0.0 - 7.0 [facility] BASOPHILS % (AUTO) - 0.7 0.0 - 4.0 [facility] NUCLEATED RBC % (AUTO) 0.0 <1 [facility] NEUTROPHILS # (AUTO) - 5.2 1.5 - 6.6 [facility] LYMPHOCYTES # (AUTO) - 1.8 1.0 - 3.5 [facility] MONOCYTES # (AUTO) - 0.8 <1.0 [facility] EOSINOPHILS # (AUTO) - 0.2 <0.7 [facility] BASOPHILS # (AUTO) - 0.1 <0.1 [facility] NUCLEATED RBC # (AUTO) 0.00 <1 [facility] Specimen Performing Organization Address [facility] Code Phon e Number [facility] [address] [place] [address] [facility] (ABNORMAL) BASIC METABOLIC PANEL,RANDOM - [facility] (07/19/2018 18:30 EDT) Pathologist Sig nature Sodium 120 (L) 136 - 145 [facility] Potassium 4.4 3.5 - 5.1 [facility] Chloride 83 (L) 96 - 107 [facility] CO2 Total 24.6 21 - 32 [facility] Anion Gap 13.4 [facility] BUN 8 7 - 25 [facility] Creatinine 0.67 (L) 0.7 - 1.30 [facility] Estimated GFR >60 >60 [facility] Comment: [facility] EGFR UNITS: mL/min/1.73 m 2 CKD-EPI Equation used to calculate. Glucose 78 70 - 180 [facility] Calcium 8.2 (L) 8.5 - 10.5 [facility] Specimen Performing Organization Address [facility] Code Phon e Number [facility] [address] [place] [address] [facility] POCT GLUCOSE (NURSING) - [facility] (07/19/2018 18:21 EDT) Pathologist Sig nature POC CAPILLARY GLUCOSE - 86 70 - 100 [facility] Specimen Performing Organization Address [facility] Phon e Number [facility] [address] [place] [address] [facility] documented in this encounter Visit Diagnoses Not on filedocumented in this encounter Care Teams Salvage Inspector Relationship Specialty Start Date End Date Katia Mccallum PA-C PCP - General 05/02/[address] [place] [id number] documented as of this encounter
--- OUTSIDE RECORDS SUMMARY | 2021-09-28 02:20 | XMS_ITS | Encounter Summary ---
:1950 Author Organization [facility] Address [address] [place] [address] Care Team Providers Name Role Phone Katia Mccallum PA-C Primary Care Provider [phone] Reason for Visit Reason Onset Date Comments Appointment Related 06/16/2020 Encounter Details Date Type Department Care Team Description 06/16/2020 Telephone [facility] Ghazala Sutherland RN Appo intment Related Cardiothoracic Surgery - [address] [address] Social History Tobacco Use Types Packs/Day Years [...] this encounter Miscellaneous Notes Telephone Encounter - Ghazala Sutherland RN - 06/16/[address] Surgery Update Message left for pt that the Pre-Op Center will call him on Monday 06/19 between 4 - 4:45 PM. I also left him a message to be sure and connect with his Finishing Supervisor Plastic Sheets at PCP office to get his COVID test 3-4 days prior to surgery. Surgery is on 06/26. GHAZALA SUTHERLAND RN documented in this encounter Plan of Treatment Not on filedocumented as of this encounter Visit Diagnoses Not on filedocumented in this encounter Care Teams Drafting Detailer Relationship Specialty Start Date End Date Katia Mccallum PA-C PCP - General 05/02/[address] [place] [id number] documented as of this encounter
--- OUTSIDE RECORDS SUMMARY | 2021-09-28 02:20 | XMS_ITS | Encounter Summary ---
:1950 Author Organization [facility] Address [address] [place] [address] Care Team Providers Name Role Phone Katia Mccallum PA-C Primary Care Provider [phone] Reason for Visit Reason Onset Date Comments Other 06/13/2020 Encounter Details Date Type Department Care Team Description 06/13/2020 Telephone [facility] Cardiothoracic Cat Sutherland RN Other [facility] [address] [place] [address] Social History Tobacco Use Types Packs/Day Years [...] Telephone Encounter - Cat Sutherland RN - 06/13/[address] Surgery Update Patient aware that instructions mailed to him by our JORGE Velázquez. I informed him his check in time is 10 am for surgery at 1210 on 06/26. His Orthopedic Tech with PCP is setting up his ride for [place] on 06/26 and for his COVID test that will need to be done 3-4 days prior to surgery. Patient verbalized understanding. I called the patient's Orthopedic Tech at [facility] at [phone] and left her a message (Maru Villalobos, TISH). She will be arranging his ride to [place] on [address] and for his COVID test. I have updated our CREDIT CORRESPONDENCE CLERK and Beulah FAIR CM at [facility] as well. documented in this encounter Plan of Treatment Not on filedocumented as of this encounter Visit Diagnoses Not on filedocumented in this encounter Care Teams Child Care Provider Relationship Specialty Start Date End Date Katia Mccallum PA-C PCP - General 05/02/[address] [place] [id number] documented as of this encounter
--- OUTSIDE RECORDS SUMMARY | 2021-09-28 02:20 | XMS_ITS | Encounter Summary ---
:1950 Author Organization [facility] Address [address] [place] [address] Care Team Providers Name Role Phone Katia Mccallum PA-C Primary Care Provider [phone] Encounter Details Date Type Department Care Team Description 01/13/2020 Results Only [facility] - [address], Provider, [facility] [address] [place], [place] [id number] Social History Tobacco Use Types Packs/Day Years [...] Procedure Name Priority Date/Time Associated Comments Diagnosis SODIUM Routine 01/13/2020 21:50 Results for this EST procedure are i n the results section. TROPONIN I Routine 01/13/2020 7:15 Results for this EST procedure are i n the results section. SODIUM Routine 01/13/2020 7:15 Results for this EST procedure are i n the results section. OSMOLALITY,S PMC TEMP Routine 01/13/2020 5:42 Res ults for this EST procedure are i n the results section. IRON,TIBC,FERRITIN Routine 01/13/2020 5:42 Result s for this GROUP - PMC EST procedure are i n the results section. HEPATIC & CMP Routine 01/13/2020 5:42 Results for this COMBO,FASTING - PMC EST procedur e are in the results section. THYROID CASCADE Routine 01/13/2020 5:42 Results f or this EST procedure are i n the results section. PROTIME Routine 01/13/2020 5:42 Results for this EST procedure are i n the results section. COMPLETE BLOOD COUNT Routine 01/13/2020 5:42 Resu lts for this AND DIFFERENTIAL EST procedure a re in the results section. MAGNESIUM Routine 01/13/2020 5:42 Results for this EST procedure are i n the results section. FOLATE Routine 01/13/2020 5:42 Results for this EST procedure are i n the results section. VITAMIN B12 Routine 01/13/2020 5:42 Results for this EST procedure are i n the results section. OSMOLALITY, UR PMC Routine 01/13/2020 1:57 Result s for this TEMP EST procedure are i n the results section. UA (CULTURE IF Routine 01/13/2020 1:57 Results fo r this POSITIVE) - PMC EST procedure ar e in the results section. BNP Routine 01/13/2020 1:57 Results for this EST procedure are i n the results section. UA MICROSCOPIC - PMC Routine 01/13/2020 1:57 Resu lts for this EST procedure are i n the results section. TROPONIN I Routine 01/13/2020 1:57 Results for this EST procedure are i n the results section. SODIUM, URINE RANDOM Routine 01/13/2020 1:57 Resu lts for this EST procedure are i n the results section. SODIUM Routine 01/13/2020 1:57 Results for this EST procedure are i n the results section. documented in this encounter Results (ABNORMAL) SODIUM (01/13/2020 21:50 EST) Pathologist Sig nature Sodium 120 (L) 136 - 145 mEq/L [facility] Specimen [facility] - 01/13/2020 2 2:26 EST Sample collected by ED but method of collection (IV Start or venipuncture) not indicated on sample. Performing Organization Address City/[facility] Code Phon e Number [facility] [address] [place] [address] TROPONIN I (01/13/2020 7:15 EST) Troponin I <0.050 0 - 0.056 [facility] (ng/mL) Comment: ng/ml [facility] [...] due to the consumption of Biotin. Specimen [facility] - 01/13/2020 7 :54 EST Sample collected from indwelling line by non-lab staff. Please Note: Obtaining blood specimens from indwelli ng lines or VADs may be a problem and a potential source of t est error because of incomplete flushing of collection site r esulting in contamination and/or dilution of the spe cimen contributing to inaccurate results. (NCCLS Standards H3-A5, page 21) Performing Organization Address [facility] Phon e [facility] [address] [place] [address] (ABNORMAL) SODIUM (01/13/2020 7:15 EST) Pathologist Sig nature Sodium 120 (L) 136 - 145 mEq/L [facility] Specimen [facility] - 01/13/2020 7 :54 EST Sample collected from indwelling line by non-lab staff. Please Note: Obtaining blood specimens from indwelli ng lines or VADs may be a problem and a potential source of t est error because of incomplete flushing of collection site r esulting in contamination and/or dilution of the spe cimen contributing to inaccurate results. (NCCLS Standards H3-A5, page 21) Performing Organization Address [facility] Phon e [facility] [address] [place] [address] OSMOLALITY,S PMC TEMP (01/13/2020 5:42 EST) [facility] OSMOLALITY,S 280 275 - 295 [facility] Comment: mOsm/kg [facility] Test Performed by: [address] [address] Video System Repairer: Pierre Andersen M.D. Ph.D.; CLIA# [id number] Specimen Narrative [facility] - 01/14/2020 1 8:37 EST Sample collected by ED but method of collection (IV Start or venipuncture) not indicated on sample. Performing Organization Address [facility] e Number [facility] [address] [place] [address] FOLATE (01/13/2020 5:42 EST) [facility] Folate 18.7 >8.6 ng/mL [facility] Specimen Performing Organization Address [facility] e [facility] [address] [place] [address] VITAMIN B12 (01/13/2020 5:42 EST) [facility] Vitamin B12 246 193 - 986 [facility] Comment: pg/mL [facility] The results of this assay can be falsely elevated due to the consumption of Biotin. Specimen Performing Organization Address [facility] e Number [facility] [address] [place] [address] (ABNORMAL) IRON,TIBC,FERRITIN GROUP - [facility] (01/13/2020 5:42 EST) [facility] nature Iron 178 (H) 65 - 175 mcg/dL [facility] Iron Binding 193 (L) 250 - 450 [facility] Capacity mcg/dL [facility] PERCENT IRON 92 (H) 14 - 50 % [facility] SATURATION - [facility] Ferritin >1000 (H) 26 - 388 ng/mL [facility] Specimen Performing Organization Address [facility] Phon e Number [facility] [address] [place] [address] PROTIME (01/13/2020 5:42 EST) [facility] Pro Time 11.1 9.0 - 12.3 [facility] SEC [facility]ENTER LAB PROTHROMBIN TIME 1.1 0.8 - 1.2 [facility] WITH INR - [facility] Comment: RATIO [facility] Interpretive Information: Moderate Intensity Coumadin INR = 2.0-3.0. Adjustments in anticoagulant therapy dose should be ba sed upon the INR and not the PT in seconds. The INR is use d only on patients on stable oral anticoagulant therapy. It m akes no significant contribution to the diagnosis or treatm ent of patients whose PT is prolonged for other reasons. Specimen [facility] - 01/13/2020 6 :48 EST Sample collected by ED but method of collection (IV Start or venipuncture) not indicated on sample. Performing Organization Address [facility] [address] [place] [address] THYROID CASCADE (01/13/2020 5:42 EST) TSH 1.958 0.360 - 3.740 [facility] Comment: mIU/L [facility] Note: This is a Third Generation Assay .......................................... The results of this assay can be falsely decreased due to the consumption of Biotin. Specimen [facility] - 01/13/2020 6 :35 EST Sample collected by ED but method of collection (IV Start or venipuncture) not indicated on sample. Performing Organization Address [facility] [address] [place] [address] (ABNORMAL) MAGNESIUM (01/13/2020 5:42 EST) Pathologist Sig nature Magnesium 1.4 (L) 1.8 - 2.4 mg/dl [facility] Specimen [facility] - 01/13/2020 6 :35 EST Sample collected by ED but method of collection (IV Start or venipuncture) not indicated on sample. Performing Organization Address [facility] e [facility] [address] [place] [address] (ABNORMAL) HEPATIC & CMP COMBO,FASTING - PMC (01/13/2020 5:42 EST) Sodium 121 (L) 136 - 145 [facility] mEq/L [facility] Potassium 4.1 3.5 - 5.1 [facility] mEq/L [facility] Chloride 87 (L) 96 - 107 [facility] mEq/L [facility] CO2 Total 25.5 21 - 32 mEq/L [facility] Anion Gap 8.5 mEq/L [facility] BUN 4 (L) 7 - 25 mg/dl [facility] Creatinine 0.60 (L) 0.70 - 1.30 [facility] mg/dl [facility] Estimated GFR >60 >60 [facility] Comment: [facility] EGFR UNITS: mL/min/1.73 m 2 CKD-EPI Equation used to calculate. Glucose 70 70 - 180 [facility] mg/dl [facility] Calcium 7.9 (L) 8.5 - 10.1 [facility] mg/dl [facility] CALCIUM,CORRECTED - 8.9 8.5 - 10.5 [facility] mg/dl [facility] BILIRUBIN - PMC 0.70 0.00 - 1.00 [facility] mg/dl [facility] AST 56 (H) 15 - 37 U/L [facility] ALT 38 16 - 63 U/L [facility] Alkaline Phosphatase 87 46 - 116 U/L [facility] Total Protein 6.8 6.4 - 8.2 [facility] g/dl [facility] Albumin 2.7 (L) 3.4 - 5.0 [facility] g/dl [facility] GLOBULIN - PMC 4.1 g/dl [facility] ALBUMIN/GLOBULIN 0.6 [facility] RATIO - [facility] Specimen Narrative [facility] - 01/13/2020 6 :35 EST Sample collected by ED but method of collection (IV Start or venipuncture) not indicated on sample. Performing Organization Address City/State/ZIP Code Phon e Number [facility] [address] [place] [address] (ABNORMAL) COMPLETE BLOOD COUNT AND DIFFERENTIAL (01/13/2020 5:42 EST) Pathologist Sig nature WBC 5.2 4.0 - 10.5 10 [facility] 3/uL [facility] RBC 3.24 (L) 4.70 - 6.00 10 [facility] 6/uL [facility] Hemoglobin 11.3 (L) 13.5 - 18.0 [facility] g/dL [facility] HCT 30.8 (L) 42.0 - 52.0 % [facility] MCV 95.1 78 - 100 fL [facility] MCH 34.9 (H) 27 - 31 pg [facility] MCHC 36.7 (H) 32 - 36 g/dL [facility] RDW-CV - [facility] 12.5 11.0 - 14.8 % [facility] PLATELET COUNT - [facility] 161 150 - 450 10 [facility] 3/[facility] LAB NEUTROPHILS % (AUTO) 52.1 42.0 - 75.0 % [facility] LYMPHOCYTES % (AUTO) 30.5 16.0 - 52.0 % [facility] MONOCYTES % (AUTO) - 13.8 (H) 1.0 - 11.0 % [facility] EOSINOPHILS % (AUTO) 1.7 0.0 - 7.0 % [facility] BASOPHILS % (AUTO) - 1.3 0.0 - 4.0 % [facility] NUCLEATED RBC % 0.0 <1 % [facility] (AUTO) [facility] NEUTROPHILS # (AUTO) 2.7 1.5 - 6.6 10 [facility] 3/[facility] LAB LYMPHOCYTES # (AUTO) 1.6 1.0 - 3.[address] LAB MONOCYTES # (AUTO) - 0.7 <1.0 10 3/uL [facility] EOSINOPHILS # (AUTO) 0.1 <0.7 10 3/uL [facility] BASOPHILS # (AUTO) - 0.1 <0.1 10 3/uL [facility] NUCLEATED RBC # 0.00 <1 10 3/uL [facility] (AUTO) [facility] Specimen Narrative [facility] - 01/13/2020 6 :48 EST Sample collected by ED but method of collection (IV Start or venipuncture) not indicated on sample. Performing Organization Address City/State/ZIP Code Phon e Number [facility] [address] [place] [address] OSMOLALITY, UR [facility] TEMP (01/13/2020 1:57 EST) Osmolality, Ur 239 150 - 1150 [facility] Comment: mOsm/kg [facility] Test Performed by: [facility] - [address] [address] Video System Repairer: Pierre Andersen M.D. Ph.D.; CLIA# [id number] Specimen Performing Organization Address [facility] Phon e Number [facility] [address] [place] [address] UA MICROSCOPIC - PMC (01/13/2020 1:57 EST) Pathologist Sig nature URINE RBC - PMC None Seen 0 - 2 hpf [facility] URINE WBC - PMC None seen 0 - 3 hpf [facility] URINE BACTERIA - PMC None Seen None Seen hpf [facility] URINE MUCUS - PMC None Seen lpf [facility] URINE SQUAMOUS None Seen None-Few hpf [facility] EPITHELIAL CELL - PMC [facility] Specimen Narrative [facility] - 01/13/2020 3 :07 EST Clean Catch Performing Organization Address [facility] [address] [place] [address] TROPONIN I (01/13/2020 1:57 EST) Troponin I <0.050 0 - 0.056 [facility] (ng/mL) Comment: ng/ml [facility] [...] consumption of Biotin. Specimen Performing Organization Address [facility] e [facility] [address] [place] [address] (ABNORMAL) SODIUM (01/13/2020 1:57 EST) Pathologist Sig nature Sodium 118 (CRIT LOW) 136 - 145 mEq/L [facility] Comment: [facility] Results called and read back to me by: Location: ER Full name: LEV JOSHUA Credentials: RN at 0258 on 01/13/20 by TESS. Specimen Performing Organization Address [facility] e Number [facility] [address] [place] [address] (ABNORMAL) BNP - PMC (01/13/2020 1:57 EST) Pathologist Sig nature B-TYPE NATRIURETIC 549 (H) <100 pg/mL [facility] PEPTIDE - [facility] LAB Specimen Performing Organization Address [facility] e Number [facility] [address] [place] [address] (ABNORMAL) UA (CULTURE IF POSITIVE) - [facility] (01/13/2020 1:57 EST) URINE COLOR - [facility] Yellow Straw/Yelow [facility] URINE APPEARANCE - Clear Clr/Hazy [facility] URINE PH - [facility] 6.0 5.0 - 9.0 [facility] UR SPECIFIC GRAVITY 1.006 1.001 - 1.035 [facility] (REFRACTOM) - [facility] URINE PROTEIN - PMC Negative Negative mg/dL [facility] URINE GLUCOSE (UA) - Negative Negative mg/dL [facility] URINE KETONES - [facility] Trace (A) Negative mg/dL [facility] URINE BILIRUBIN - Negative Negative [facility] URINE BLOOD - [facility] Trace (A) Negative [facility] URINE UROBILINOGEN - 0.2 0.2 - 1.0 [facility] E.U./dL [facility] URINE NITRATE - [facility] Negative Negative [facility] URINE LEUKOCYTE Negative Negative [facility] ESTERASE - [facility] URINE CULTURE CRITERIA NOT [facility] COMMENTS - [facility] METComment: [facility] Specimen does not meet criteria for culture. Specimen Narrative [facility] - 01/13/2020 3 :07 EST Clean Catch Performing Organization Address City/[facility]/ZIP Code Phon e Number [facility] [address] [place] [address] SODIUM, URINE RANDOM (01/13/2020 1:57 EST) Pathologist Sig nature Sodium, Urine 52 20 - 110 mEq/L [facility] Specimen Performing Organization Address City/[facility]/ZIP [facility] Phon e Number [facility] [address] [place] [address] documented in this encounter Visit Diagnoses Not on filedocumented in this encounter Care Teams Revenue Integrity Analyst Relationship Specialty Start Date End Date Katia Mccallum PA-C PCP - General 05/02/[address] [place] [id number] documented as of this encounter
--- OUTSIDE RECORDS SUMMARY | 2021-09-28 02:20 | XMS_ITS | Encounter Summary ---
:1950 Author Organization [facility] Address [address] [place] [address] Care Team Providers Name Role Phone Katia Mccallum PA-C Primary Care Provider [phone] Reason for Visit Reason Onset Date Comments Appointment Related 06/19/2020 Encounter Details Date Type Department Care Team Description 06/19/2020 Telephone [facility] Cherie Browne MD Appointment Related Cardiothoracic Surgery - [address] [place] [address], [address], [address] [place], [place] [address] [place] [address] [phone] (Wo rk) Social History Tobacco Use [...] Notes Telephone Encounter - Alma Dhillon - 06/19/2020 0858 EDT TC to Nila, Area Plant Manager, at patient's PCP Office. She is aware that patient has a PAT appointment today between 4:00 and 4:45 pm with an Anesthesia Nurse. Patient is scheduled for surgery on 06/26 at 12:10 pm and should arrive in the Registration Department at 10:10 am. Area Plant Manager states that patienthas a COVID test scheduled for 06/22 at [facility]. New telephone number noted for Area Plant Manager is [phone]. documented in this encounter Plan of Treatment Not on filedocumented as of this encounter Visit Diagnoses Not on filedocumented in this encounter Care Teams Solar Project Manager Relationship Specialty Start Date End Date Katia Mccallum PA-C PCP - General 05/02/[address] [place] [id number] documented as of this encounter
--- OUTSIDE RECORDS SUMMARY | 2021-09-28 02:20 | XMS_ITS | Encounter Summary ---
:[address] [facility] Address [address] [place] [address] Care Team Providers Name Role Phone Katia Mccallum PA-C Primary Care Provider [phone] Encounter Details Date Type Department Care Team Description 08/20/2018 Historical Results [facility] - Katia Mccallum Only [facility] [address] [facility] [place] [facility] [place] [address] [place] [address] [phone] Social History Tobacco Use Types Packs/Day Years [...] Diagnosis Comme nts HEPATIC & CMP Routine 08/20/2018 11:48 Results fo r this COMBO,FASTING - [facility] EDT procedur e are in the results section. documented in this encounter Results (ABNORMAL) HEPATIC & CMP COMBO,FASTING - PMC (08/20/2018 11:48 EDT) Sodium 121 (L) 136 - 145 [facility] Potassium 4.7 3.5 - 5.1 [facility] Chloride 87 (L) 96 - 107 [facility] CO2 Total 28.2 21 - 32 [facility] Anion Gap 5.8 [facility] BUN 7 7 - 25 [facility] Creatinine 0.59 (L) 0.7 - 1.30 [facility] Estimated GFR >60 >60 [facility] Comment: [facility] EGFR UNITS: mL/min/1.73 m 2 CKD-EPI Equation used to calculate. Glucose 88 FASTIN-99 [facility] Calcium 8.6 8.5 - 10.5 [facility] CALCIUM,CORRECTED - 9.0 8.5 - 10.5 [facility] BILIRUBIN - [facility] 0.60 0.00 - 1.00 [facility] AST 41 (H) 15 - 37 [facility] ALT 47 12 - 78 [facility] Alkaline Phosphatase 86 46 - 116 [facility] Total Protein 7.5 6.4 - 8.2 [facility] Albumin 3.5 3.4 - 5.0 [facility] GLOBULIN - [facility] 4.0 [facility] ALBUMIN/GLOBULIN 0.8 [facility] RATIO - [facility] Specimen Performing Organization Address City/State/ZIP Code Phon e Number [facility] [address] [place] [address] [facility] documented in this encounter Visit Diagnoses Not on filedocumented in this encounter Care Teams Hearing Impaired Teacher Relationship Specialty Start Date End Date Katia Mccallum PA-C PCP - General 05/02/[address] [place] [id number] documented as of this encounter
--- OUTSIDE RECORDS SUMMARY | 2021-09-28 02:20 | XMS_ITS | Encounter Summary ---
:[address] [facility] Address [address] [place] [address] Care Team Providers Name Role Phone Katia Mccallum PA-C Primary Care Provider [phone] Reason for Visit Reason Onset Date Comments Coordination Of Care 04/19/2020 Returning Call 04/20/2020 Encounter Details Date Type Department Care Team Description 04/19/2020 Telephone [facility] Yariel Rosenberg MD Coordination Of Care; Cardiology - SingleHop Returning Call [address] [address] Social History Tobacco Use Types [...] this encounter Miscellaneous Notes Telephone Encounter - Adam Ordoñez - 04/20/2020 1508 EST Patient's briefcase sewer returning call to Belinda. Please call. elephone Encounter - Belinda Falk RN - 04/20/2020 1457 EST Call placed to briefcase sewer regarding patient unable to reach by phone. Message left on voice mail to call office back with call back number [phone]. Telephone Encounter - Conner Mccall - 04/19/2020 1118 EST Reason for Call: Coordination Of Care Summary/Symptoms: Maru patients Manager Latin reaching out to get more information on the appt Dr Rosenberg talked about for patient's pacemaker. Dr Rosenberg was going to have an appt for the patient with another cardio surgeon Maru states. Maru was going to call [facility] but stated they always ask Chaitanya. Please call back to discuss Conner Mccall 04/19/2020 11:19 documented in this encounter Plan of Treatment Not on filedocumented as of this encounter Visit Diagnoses Not on filedocumented in this encounter Care Teams Landscape Supervisor Relationship Specialty Start Date End Date Katia Mccallum PA-C PCP - General 05/02/[address] [place] [id number] documented as of this encounter
--- OUTSIDE RECORDS SUMMARY | 2021-09-28 02:20 | XMS_ITS | Encounter Summary ---
:1950 Author Organization [facility] Address [address] [place] [address] Care Team Providers Name Role Phone Katia Mccallum PA-C Primary Care Provider [phone] Encounter Details Date Type Department Care Team Description 10/08/2019 Travel Social History Tobacco Use Types Packs/Day Years [...] on filedocumented in this encounter Care Teams Weed Control Inspector Relationship Specialty Start Date End Date Katia Mccallum PA-C PCP - General 05/02/[address] [place], [place] [id number] documented as of this encounter
--- OUTSIDE RECORDS SUMMARY | 2021-09-28 02:20 | XMS_ITS | Encounter Summary ---
:1950 Author Organization [facility] Address [address] [place] [address] Care Team Providers Name Role Phone Katia Mccallum PA-C Primary Care Provider [phone] Reason for Visit Reason Onset Date Comments Coordination Of Care 11/12/2019 Encounter Details Date Type Department Care Team Description 11/12/2019 Telephone [facility] - Chaitanya Trevino RN [address] [place], [place] [address] Social History Tobacco Use Types Packs/Day Years [...] Telephone Encounter - Belinda Falk RN - 11/15/2019 1430 EDT Message relayed to Dr. Rosenberg for review. elephone Encounter - Belinda Falk RN - 11/12/2019 1036 EDT An from [employer] calling in to report that patient has had fallen 3 times yesterday. documented in this encounter Plan of Treatment Not on filedocumented as of this encounter Visit Diagnoses Not on filedocumented in this encounter Care Teams Quality Assurance Coach Relationship Specialty Start Date End Date Katia Mccallum PA-C PCP - General 05/02/17 [address] [place] [id number] documented as of this encounter
--- OUTSIDE RECORDS SUMMARY | 2021-09-28 02:20 | XMS_ITS | Encounter Summary ---
:1950 Author Organization [facility] Address [address] [place] [address] Care Team Providers Name Role Phone Katia Mccallum PA-C Primary Care Provider [phone] Encounter Details Date Type Department Care Team Description 01/12/2020 Results Only [facility] - Angelic Olguin MD [facility] [address] [place] [address] [phone] (Wo rk) Social History Tobacco Use Types [...] Procedure Name Priority Date/Time Associated Comments Diagnosis POCT GLUCOSE Routine 01/12/2020 22:30 Results for this (NURSING) - PMC EST procedure ar e in the results section. ETHYL ALCOHOL LEVEL - Routine 01/12/2020 22:30 Re sults for this PMC EST procedure are i n the results section. BASIC METABOLIC Routine 01/12/2020 22:30 Results for this PANEL,RANDOM - PMC EST procedure are in the results section. TROPONIN I Routine 01/12/2020 22:30 Results for this EST procedure are i n the results section. COMPLETE BLOOD COUNT Routine 01/12/2020 22:30 Res ults for this AND DIFFERENTIAL EST procedure a re in the results section. HEPATIC FUNCTION Routine 01/12/2020 22:30 Results for this PANEL (ALB,ALK EST procedure are in PHOS,ALT,AST,DBIL,TOT the re sults BOSSMAN,TOT PROT) section. documented in this encounter Results (ABNORMAL) POCT GLUCOSE (NURSING) - PMC (01/12/2020 22:30 EST) Pathologist Sig nature POC CAPILLARY 102 (H) 70 - 100 mg/dL [facility] GLUCOSE - [facility] CENTER LAB Specimen Performing Organization Address City/[facility]/ZIP Code Phon e Number [facility] [address] [place] [address] (ABNORMAL) ETHYL ALCOHOL LEVEL - [facility] (01/12/2020 22:30 EST) ETHYL ALCOHOL 237.0 (CRIT HIGH) <10 mg/dL [facility] - [facility] Comment: [facility]ENTER [facility] Results called and read back to me by: Location: ED Full name: FERMIN FAROOQ Credentials: RN at 2346 on 01/12/20 by TESS. Medical Serum/Plasma Alcohol test reported in mg/dL. Example of unit conversion from mg/dL to percentage: ?80 mg/dL is equivalent to 0.08 % Specimen Narrative [facility] - 01/12/2020 2 3:47 EST Sample collected at time of saline lock or IV placement. Performing Organization Address City/[facility]/ZIP Code Phon e Number [facility] [address] [place] [address] TROPONIN I (01/12/2020 22:30 EST) Troponin I <0.050 0 - 0.056 [facility] (ng/mL) Comment: ng/ml CENTER [facility] Interpretation: [...] due to the consumption of Biotin. Specimen Narrative [facility] - 01/12/2020 2 3:47 EST Sample collected at time of saline lock or IV placement. Performing Organization Address [facility] e [facility] [address] [place] [address] (ABNORMAL) BASIC METABOLIC PANEL,RANDOM - PMC (01/12/2020 22:30 EST) Sodium 116 (CRIT LOW) 136 - 145 mEq/L [facility] Comment: [facility] [place] [facility] Results called and read back to me by: Location: ED Full name: DEBBIE JOSHUA Credentials: RN at 2332 on 01/12/20 by TESS. Potassium 4.3 3.5 - 5.1 mEq/L [facility] Chloride 83 (L) 96 - 107 mEq/L [facility] CO2 Total 24.6 21 - 32 mEq/L [facility] Anion Gap 10.4 mEq/L [facility] BUN 5 (L) 7 - 25 mg/dl [facility] Creatinine 0.62 (L) 0.70 - 1.30 [facility] mg/dl [facility]ENTER [facility] Estimated GFR >60 >60 [facility] Comment: [facility]ENTER [facility] EGFR UNITS: mL/min/1.73 m 2 CKD-EPI Equation used to calculate. Glucose 89 70 - 180 mg/dl [facility] Calcium 8.2 (L) 8.5 - 10.1 [facility] mg/dl [facility] Specimen Narrative [facility] - 01/12/2020 2 3:47 EST Sample collected at time of saline lock or IV placement. Performing Organization Address [facility] e [facility] [address] [place] [address] (ABNORMAL) HEPATIC FUNCTION PANEL (ALB,ALK PHOS,ALT,AST,DBIL,TOT BOSSMAN,TOT PROT) (01/12/2020 22:30 EST) Pathologist Sig nature BILIRUBIN - PMC 0.60 0.00 - 1.00 [facility] mg/dl [facility]ENTER [facility] DIRECT BILIRUBIN - [facility] 0.20 0.00 - 0.30 [facility] mg/dl [facility] INDIRECT BILIRUBIN - 0.40 0.00 - 0.80 [facility] mg/dl [facility] AST 74 (H) 15 - 37 U/L [facility] ALT 44 16 - 63 U/L [facility] Alkaline Phosphatase 103 46 - 116 U/L [facility] Total Protein 8.1 6.4 - 8.2 g/dl [facility] Albumin 3.3 (L) 3.4 - 5.0 g/dl [facility] GLOBULIN - [facility] 4.8 g/dl [facility] ALBUMIN/GLOBULIN RATIO 0.6 [facility] Specimen Narrative [facility] - 01/12/2020 2 3:47 EST Sample collected at time of saline lock or IV placement. Performing Organization Address City/State/ZIP Code Phon e Number [facility] [address] [place] [address] (ABNORMAL) COMPLETE BLOOD COUNT AND DIFFERENTIAL (01/12/2020 22:30 EST) Pathologist [facility] WBC 5.5 4.0 - 10.5 10 [facility] 3/[facility] LAB RBC 3.69 (L) 4.70 - 6.00 10 [facility] 6/[facility] LAB Hemoglobin 12.8 (L) 13.5 - 18.0 [facility] g/dL [place] HCT 35.3 (L) 42.0 - 52.0 % [facility] MCV 95.7 78 - 100 fL [facility] MCH 34.7 (H) 27 - 31 pg [facility] MCHC 36.3 (H) 32 - 36 g/dL [facility] RDW-CV - [facility] 12.6 11.0 - 14.8 % [facility] PLATELET COUNT - [facility] 182 150 - [address] LAB NEUTROPHILS % (AUTO) 54.5 42.0 - 75.0 % [facility] LYMPHOCYTES % (AUTO) 29.0 16.0 - 52.0 % [facility] MONOCYTES % (AUTO) - 12.6 (H) 1.0 - 11.0 % [facility] EOSINOPHILS % (AUTO) 2.4 0.0 - 7.0 % [facility] BASOPHILS % (AUTO) - 1.1 0.0 - 4.0 % [facility] NUCLEATED RBC % 0.0 <1 % [facility] (AUTO) [facility] NEUTROPHILS # (AUTO) 3.0 1.5 - 6.6 10 [facility] 3/uL CENTER LAB LYMPHOCYTES # (AUTO) 1.6 1.0 - 3.5 10 [facility] 3/uL [place] [facility] MONOCYTES # (AUTO) - 0.7 <1.0 10 3/uL [facility] EOSINOPHILS # (AUTO) 0.1 <0.7 10 3/uL [facility] BASOPHILS # (AUTO) - 0.1 <0.1 10 3/uL [facility] NUCLEATED RBC # 0.00 <1 10 3/uL [facility] (AUTO) [facility] Specimen Narrative [facility] - 01/12/2020 2 3:35 EST Sample collected at time of saline lock or IV placement. Performing Organization Address City/State/ZIP Code Phon e Number [facility] [address] [place] [address] documented in this encounter Visit Diagnoses Not on filedocumented in this encounter Care Teams Manager Life Sciences Relationship Specialty Start Date End Date Katia Mccallum PA-C PCP - General 05/02/[address] [facility] [place] [address] documented as of this encounter
--- OUTSIDE RECORDS SUMMARY | 2021-09-28 02:20 | XMS_ITS | Encounter Summary ---
:1950 Author Organization [facility] Address [address] [place] [address] Care Team Providers Name Role Phone Katia Mccallum PA-C Primary Care Provider Reason for Visit Reason Onset Date Comments Other 06/07/[address] Mihir rama [place] Other 06/08/2020 mailed pre-op instru ctions to patient Encounter Details Date Type Department Care Team Description 06/07/2020 Telephone [facility] Cherie Browne MD Other (questions for Cardiothoracic Surgery - [address] [facility] CT Surgery RN); Other Main [facility] (mailed pre-op [address] [facility] [address], Level 5 instructions to [place], [place] [id number] [place] [address] patient) [phone] (Wo rk) Social History Tobacco Use [...] Notes Telephone Encounter - Melania Dumas - 06/08/2020 1710 EDT Pre-op instructions mailed to patient at: [address] [place] [id number] Address updated in [facility]. elephone Encounter - Cat Sutherland RN - 06/07/2020 1526 EDT Called and left message for Maru Villalobos RN at [place] [facility] Host[facility] to get correct address (mailing address) for patient and then have changed in Registration as he doesn't live in [place] anymore. She was going to call us back but didn't so I asked her to call and speak with our OSS Melania Dumas so Melania can mail the pre-op instructions. I have routed JORGE Wagner. elephone Encounter - Cat Sutherland RN - 06/07/2020 1131 EDT Images from the original note were not included. Preoperative Instructions ??? Cardiac Surgery Patients Welcome to the Division of Cardiothoracic Surgery at the [facility]. We look forward to making your stay a safe, comfortable and pleasant experience. ??? Your surgery is scheduled on Friday June 26, 2020 check in time will be announced as soon as wehave the time. We will call you. ??? Please plan to arrive at: As above ??? When you arrive you should report to Registration on Level 3 (street level), located near the Main Entrance of the Human Resources File Clerk Center at the [facility] Main [place]. Prior to surgery, you will be scheduled for an anesthesia pre-screen telephone call with the Pre-Operative Department ??? Your telephone call has been scheduled for: To Be Announced between To Be Announced and To Be Announced ??? If you do not receive an appointment for the pre-screen call within two days of this appointment, please contact our office at [phone]. We have included a local lodging list should you or your family require accommodations around the time of your surgery. Discounts may apply for family members of patients being hospitalized, please askthe hotel when booking. You should receive a call from our office 1-3 days before your scheduled surgery to review instructions, medications and to answer any questions. During this time please verify with our office your contact information for the day and night before surgery. In the event of a scheduling change, we will then be able to contact you. Please stop or hold the following medications prior to surgery as instructed below: ??? Do not take the Torsemide (Demadex) on the day of the surgery. ??? Do not take the Colchichine (Colcrys) on the day of the surgery. General Medication Instructions: ??? If you are taking an aspirin once daily, continue the aspirin through surgery unless instructed differently. Avoid additional Aspirin or Aspirin- Containing Medications for 7 days prior to surgery. ??? Non-steroidal Anti-inflammatory medications such as Ibuprofen (Motrin, Advil, Aleve), Indomethacin, and Celebrex should be held for 3 days prior to your surgery. ??? All Vitamins, Supplements and Herbal Supplements should be discontinued 7 days prior to your surgery. Stop Saw [place] 14 days prior to surgery. ??? Acetaminophen (Tylenol) is an acceptable over the counter pain medication that may be taken right up to the day of surgery if needed. ??? If you have been prescribed Nitroglycerin, follow the Nitroglycerin instruction handout that carmen provided. ??? If you are currently taking any anticoagulants (blood thinners) or anti- platelet drugs please discuss with your surgery team as to whether these should be stopped before surgery. Examples include: Warfarin (Coumadin), Clopidogrel (Plavix), Dabigatran (Pradaxa), Ticagrelor (Brilinta), Rivaroxaban (Xarelto), Apixaban (Eliquis). If you were told to stop, take your last dose of ( OF TODAY WE DON'T HAVE YOU LISTED TAKING ANY OF THESE. IF THIS IS DIFFERENT OR HAS CHANGED, CALL OUR OFFICE RIGHT AWAY AT [phone]) ??? Continue to take all of your other medications unless otherwise specified in these instructions taking your regularly scheduled medications the day of the surgery with small sips of water. ??? Contact our office if any medications are added or changed before your surgery. Diet Instructions before Surgery: ??? Continue your diet as normal the day before surgery up until midnight. ??? No solid food or liquids containing fats (including milk) after midnight before your surgery. ??? On the day of surgery you may have water or other fat free clear liquids up until 3 hours beforesurgery. Clear liquids include: water, clear fruit juices, Gatorade, clear carbonated beverages, coffee or tea NO cream. ??? Do not drink citrus juice (orange or pineapple), clear broth, gelatin (Jell- O) or apple sauce. ??? Failure to comply with the above guidelines may result in the cancellation OR delay of your surgery. Bathing Instructions before Surgery: ??? Take two showers with the Chlorhexidine Gluconate Antiseptic soap that was provided instead of using your own soap. Take one shower the evening prior to surgery and a second shower the day of the surgery. ??? Apply the soap to a clean washcloth and wash your entire body with that soap in the shower except as follows: Do not allow the Chlorhexidine soap to come in contact with your head or face, or with mucous membranes such as eyes, mouth, genitals. Use regular soap on these areas. Miscellaneous Instructions/Information: ??? Practice using the Incentive Spirometer (breathing device) that was provided in the days before surgery. You do not need to bring this weith you to the Hospital. ??? Hair clipping of the chest and legs may be necessary if you are having cardiac surgery. This will be completed in the Pre-Operative Hold area on the day of your surgery. Do not do this on your own. ??? Wear comfortable, loose fitted, freshly laundered clothing to the hospital. Button down shirts are helpful. You will be discharged in the same clothing. ??? Do not wear any nail bengali, makeup, powder, lotion, deodorant or jewelry of any kind. ??? Do not bring valuables. ??? Bring your eyeglasses, contacts or hearing aids with you, as well as any cases for these items. ??? If you use BIPAP or CPAP for sleep apnea, please bring this with you on the day of the surgery. ??? Dental cleanings or dental work are not recommended within three months of the surgery unless you are having a dental problem. Please contact our office to discuss, as planned antibiotic prophylaxis for prevention of infection may be necessary. ??? If you have fever, chills, muscle pain, loss of taste or smell, cough, shortness of breath, flu-like symptoms, diarrhea, sore throat, or other signs of an illness, please inform our office so the Surgeon can adjust your surgery date if appropriate. ??? If you have been exposed to COVID (Miller Virus) contact our office. ??? You will have a COVID test that must be collected between 72 and 96 hours before the surgery date to ensure timely results. The Patient Access Center at [facility] will contact you with an appointment at a location closest to your home for the test. Once the test is completed, you will need to quarantine at home until the surgery. Quarantining is staying at home or on your property until you come in for your surgery. If you don't quarantine, your surgery will be post-poned. IF YOU DON'T HEAR FROM THE PATIENT ACCESS COVID CENTER WITH AN APPOINTMENT CONTACT THE PATIENT ACCESS CENTER AT [phone]. ??? While waiting for your surgery, you should not participate in aerobic exercise, activities that elevate your heart rate or bring on cardiac symptoms which may or may not include nausea, shortness of breath, dizziness, fainting, or near fainting, sweating, pain or pressure in your chest, back, jaw,neck or arm. ??? If you have an Advance Directive, please bring a copy with you on the day of the surgery so thatit may be added to your medical record. Post-Operative Information: ??? Your length of stay at the Hospital will depend upon the complexity of your surgery and your recovery process. As you near discharge, the Inpatient Team will normally inform you 24 hours in advance. ??? Purchase a thermometer, unless you already have one, automatic blood pressure cuff, and a scale to measure your vital signs and weight following discharge. ??? Approximately 2-3 weeks post-operatively, you will follow-up with your Cardiothoracic Surgeon for a check-up. With your in-person office visit, please check in at Registration on Level 3 (street level of the hospital) for this. Following check-in, you will have a chest x-ray done. Following the chest x-ray proceed to the Surgeon's office on Level 5 [facility] Outpatient office. Note: If for some reason you had a chest-x-ray following your discharge, please contact our office and ask to speak with a nurse so we can decide if another chest x-ray is needed with your appointment. If you have any changes in your medical condition, seek medical assistance right away. If you are having a medical emergency call 911. If you have any questions or concerns about these instructions or your upcoming surgery please contact us at the numbers listed below. The Division of Cardiothoracic Surgery [address] [place] [address] (Toll Free) MD Geovanni Toure MD Marek Polomsky, MD Chris Rokkas, MD /josh & ep 03/2020 elephone Encounter - Cat Sutherland RN - 06/07/[address] Surgery [place] Maru Villalobos data report analyst [facility] [phone] EXT 7 states patient's son and and is not on Adv Directive now. Questions call Maru Villalobos. Pre-Op Instructions mailed to patient and faxed to Maru [phone]. She will review with the patient and I will as well. Check in time for surgery on 06/26 has not been confirmed yet per our Taxi Driver. Maru will set up COVID test as he needs a driver material handler and he will also need a ride to [place] for surgery which she will arrange. elephone Encounter - Melania Dumas - 06/07/2020 1013 EDT Maru from [place] calling with questions for CT Surgery RN. Requesting return call to [phone], extension 7. documented in this encounter Plan of Treatment Not on filedocumented as of this encounter Visit Diagnoses Diagnosis Encounter for preoperative screening lab oratory testing for COVID-19 virus - Primary documented in this encounter Care Teams Tree Tapping Laborer Relationship Specialty Start Date End Date Katia Mccallum PA-C PCP - General 05/02/17 [address] [place] [id number] documented as of this encounter
--- OUTSIDE RECORDS SUMMARY | 2021-09-28 02:20 | XMS_ITS | Encounter Summary ---
:1950 Author Organization [facility] Address [address] [place] [address] Care Team Providers Name Role Phone Katia Mccallum PA-C Primary Care Provider [phone] Encounter Details Date Type Department Care Team Description 01/15/2020 Results Only [facility] - [address], Provider, [facility] [address] [place], [place] [id number] Social History Tobacco Use Types Packs/Day Years [...] Date/Time Associated Diagnosis Comme nts SODIUM Routine 01/15/2020 0:18 EST Results for this procedure are i n the results section . documented in this encounter Results (ABNORMAL) SODIUM (01/15/2020 0:18 EST) Pathologist Sig nature Sodium 124 (L) 136 - 145 mEq/L [facility] Specimen Performing Organization Address City/State/ZIP Code Phon e Number [facility] [address] [place] [address] documented in this encounter Visit Diagnoses Not on filedocumented in this encounter Care Teams Warp Knitter Relationship Specialty Start Date End Date Katia Mccallum PA-C PCP - General 05/02/[address] [place] [address] documented as of this encounter
--- OUTSIDE RECORDS SUMMARY | 2021-09-28 02:20 | XMS_ITS | Encounter Summary ---
:1950 Author Organization [facility] Address [address] [place] [address] Care Team Providers Name Role Phone Katia Mccallum PA-C Primary Care Provider [phone] Reason for Visit Reason Onset Date Comments Follow-up 12/23/2019 TE 11/02 Encounter Details Date Type Department Care Team Description 12/23/2019 Telephone [facility] Yariel Rosenberg MD Follow-up (TE 11/02) Cardiology - [facility] [address] [facility] [address] [facility] [address] [place], [place] [address] [place], [place] [phone] (Wo rk) Social History Tobacco Use Types [...] Encounter - Belinda Falk RN - 12/23/2019 1552 EDT Reviewed with patient that multiple messages have been sent to Dr. Rosenberg regarding procedure. Patient upset hasn't heard from Dr. Rosenberg. Assured patient Dr. Rosenberg has been made aware for the request for more information. Offered patient the number for patient and family advocacy which patient declined. Message forwarded to Dr. Rosenberg. elephone Encounter - Whitney Young - 12/23/2019 1543 EDT Patient states that he is supposed to be having a lead replaced; please call as soon as possible documented in this encounter Plan of Treatment Not on filedocumented as of this encounter Visit Diagnoses Not on filedocumented in this encounter Care Teams Supervisor Powder [employer] Canning Relationship Specialty Start Date End Date Katia Mccallum PA-C PCP - General 05/02/[address] [place] [id number] documented as of this encounter
--- OUTSIDE RECORDS SUMMARY | 2021-09-28 02:20 | XMS_ITS | Encounter Summary ---
:1950 Author Organization [facility] Address [address] [place] [address] Care Team Providers Name Role Phone Katia Mccallum PA-C Primary Care Provider Encounter Details Date Type Department Care Team Description 01/14/2020 Results Only [facility]- Jayesh Baldwin, [address] [place] [phone] (Wo rk) Social History Tobacco Use [...] Date/Time Associated Diagnosis Comme nts SODIUM Routine 01/14/2020 19:10 Results for this EST procedure are i n the results section. SODIUM Routine 01/14/2020 14:55 Results for this EST procedure are i n the results section. BASIC METABOLIC Routine 01/14/2020 5:30 EST Resul ts for this PANEL,RANDOM - PMC procedure are in the results section. COMPLETE BLOOD Routine 01/14/2020 5:30 EST Result s for this COUNT procedure are i n the results section. MAGNESIUM Routine 01/14/2020 5:30 EST Results for this procedure are i n the results section. documented in this encounter Results (ABNORMAL) SODIUM (01/14/2020 19:10 EST) Pathologist Sig nature Sodium 124 (L) 136 - 145 mEq/L [facility] Specimen Performing Organization Address [facility] Phon [facility] [address] [place] [address] (ABNORMAL) SODIUM (01/14/2020 14:55 EST) Pathologist Sig nature Sodium 125 (L) 136 - 145 mEq/L [facility] Specimen Performing Organization Address [facility] [address] [place] [address] (ABNORMAL) COMPLETE BLOOD COUNT (01/14/2020 5:30 EST) Pathologist Sig nature WBC 5.2 4.0 - 10.5 10 [facility] 3[facility] RBC 3.29 (L) 4.70 - 6.00 10 [facility] 6/[facility] LAB Hemoglobin 11.5 (L) 13.5 - 18.0 [facility] g/dL CENTER LAB HCT 31.5 (L) 42.0 - 52.0 % [facility] MCV 95.7 78 - [address] [facility] MCH 35.0 (H) 27 - [address] [facility] MCHC 36.5 (H) 32 - 36 g/dL [facility] RDW-CV - PMC 13.1 11.0 - 14.8 % [facility] PLATELET COUNT - [facility] 156 150 - [address] Spec[address] N[address] [facility] - 01/14/2020 6 :37 EST Sample collected from indwelling line by non-lab staff. Please Note: Obtaining blood specimens from indwelli ng lines or VADs may be a problem and a potential source of t est error because of incomplete flushing of collection site r esulting in contamination and/or dilution of the spe cimen contributing to inaccurate results. (NCCLS Standards H3-A5, page 21) Performing Organization Address [facility]/ZIP Code Phon e Number [facility] [address] [place] [address] MAGNESIUM (01/14/2020 5:30 EST) Pathologist Sig nature Magnesium 2.0 1.8 - 2.4 mg/dl [facility] Specimen Narrative [facility] - 01/14/2020 6 :33 EST Sample collected from indwelling line by non-lab staff. Please Note: Obtaining blood specimens from indwelli ng lines or VADs may be a problem and a potential source of t est error because of incomplete flushing of collection site r esulting in contamination and/or dilution of the spe cimen contributing to inaccurate results. (NCCLS Standards H3-A5, page 21) Performing Organization Address [facility] Phon e Number [facility] [address] [place] [address] (ABNORMAL) BASIC METABOLIC PANEL,RANDOM - PMC (01/14/2020 5:30 EST) Sodium 122 (L) 136 - 145 mEq/L [facility] Potassium 4.0 3.5 - 5.1 mEq/L [facility] Chloride 89 (L) 96 - 107 mEq/L [facility] CO2 Total 28.1 21 - 32 mEq/L [facility] Anion Gap 5.9 mEq/L [facility] BUN 11 7 - 25 mg/dl [facility] Creatinine 0.71 0.70 - 1.30 [facility] mg/dl CENTER LAB Estimated GFR >60 >60 [facility] Comment: CENTER LAB EGFR UNITS: mL/min/1.73 m 2 CKD-EPI Equation used to calculate. Glucose 101 70 - 180 mg/dl [facility] Calcium 8.2 (L) 8.5 - 10.1 [facility] mg/dl [facility]ENTER LAB Specimen Narrative [facility] - 01/14/2020 6 :33 EST Sample collected from indwelling line by non-lab staff. Please Note: Obtaining blood specimens from indwelli ng lines or VADs may be a problem and a potential source of t est error because of incomplete flushing of collection site r esulting in contamination and/or dilution of the spe cimen contributing to inaccurate results. (NCCLS Standards H3-A5, page 21) Performing Organization Address City/State/ZIP Code Phon e Number [facility] [address] [place] [address] documented in this encounter Visit Diagnoses Not on filedocumented in this encounter Care Teams Brickmason Supervisor Relationship Specialty Start Date End Date Katia Mccallum PA-C PCP - General 05/02/[address] [place] [address] documented as of this encounter
--- OUTSIDE RECORDS SUMMARY | 2021-09-28 02:20 | XMS_ITS | Encounter Summary ---
:1950 Author Organization [facility] Address [address] [place] [address] Care Team Providers Name Role Phone Katia Mccallum PA-C Primary Care Provider [phone] Encounter Details Date Type Department Care Team Description 01/14/2020 Results Only [facility] - [address], Provider, [facility] [address] [place], [place] [id number] Social History Tobacco Use Types Packs/Day Years [...] Name Priority Date/Time Associated Diagnosis Comme nts PROTIME Routine 01/14/2020 5:30 EST Results for this procedure are i n the results section . SODIUM Routine 01/14/2020 2:07 EST Results for this procedure are i n the results section . documented in this encounter Results PROTIME (01/14/2020 5:30 EST) Pro Time 11.2 9.0 - 12.3 [facility] PROTHROMBIN TIME 1.1 0.8 - 1.2 [facility] WITH INR - PMC Comment: [facility] LAB Interpretive Information: Moderate [...] PT is prolonged for other reasons. Specimen [facility] - 01/14/2020 6 :37 EST Sample [...] [facility] [address] [place] [address] (ABNORMAL) SODIUM (01/14/2020 2:07 EST) Pathologist Sig nature Sodium 121 (L) 136 - 145 mEq/L [facility] Specimen [facility] - 01/14/2020 2 :41 EST Sample collected from saline lock with discard per protocol by non-laboratory staff. Performing Organization Address City/State/ZIP Code Phon e Number [facility] [address] [place] [address] documented in this encounter Visit Diagnoses Not on filedocumented in this encounter Care Teams Labor Custodian Relationship Specialty Start Date End Date Katia Mccallum PA-C PCP - General 05/02/[address] [place] [address] documented as of this encounter
--- OUTSIDE RECORDS SUMMARY | 2021-09-28 02:20 | XMS_ITS | Encounter Summary ---
:1950 Author Organization [facility] Address [address] [place] [address] Care Team Providers Name Role Phone Katia Mccallum PA-C Primary Care Provider [phone] Encounter Details Date Type Department Care Team Description 06/12/2018 Historical Results [facility] - Katia Mccallum Only [facility]A [facility] [address] [facility] [place] [facility] [place] [address] [place] [address] [phone] Social History Tobacco Use Types Packs/Day Years [...] Diagnosis Comme nts HEPATIC & CMP Routine 06/12/2018 16:46 Results fo r this COMBO,FASTING - PMC EDT procedur e are in the results section. documented in this encounter Results (ABNORMAL) HEPATIC & CMP COMBO,FASTING - PMC (06/12/2018 16:46 EDT) Sodium 125 (L) 136 - 145 [facility] Potassium 5.0 3.5 - 5.1 [facility] Chloride 89 (L) 96 - 107 [facility] CO2 Total 28.7 21 - 32 [facility] Anion Gap 7.3 [facility] BUN 8 7 - 25 [facility] Creatinine 0.60 (L) 0.7 - 1.30 [facility] Estimated GFR >60 >60 [facility] Comment: CENTER LAB EGFR UNITS: mL/min/1.73 m 2 CKD-EPI Equation used to calculate. Glucose 84 70 - 180 [facility] Calcium 8.2 (L) 8.5 - 10.5 [facility] CALCIUM,CORRECTED - 8.7 8.5 - 10.5 [facility] BILIRUBIN - [facility] 0.30 0.00 - 1.00 [facility] AST 39 (H) 15 - 37 [facility] ALT 52 12 - 78 [facility] Alkaline Phosphatase 93 46 - 116 [facility] Total Protein 7.1 6.4 - 8.2 [facility] Albumin 3.4 3.4 - 5.0 [facility] GLOBULIN - PMC 3.7 [facility] ALBUMIN/GLOBULIN 0.9 [facility] RATIO - [facility] CENTER LAB Specimen Performing Organization Address City/State/ZIP Code Phon e Number [facility] [address] [place] [address] [facility] documented in this encounter Visit Diagnoses Not on filedocumented in this encounter Care Teams Lime Sludge Mixer Relationship Specialty Start Date End Date Katia Mccallum PA-C PCP - General 05/02/[address] [place], [place] [id number] documented as of this encounter
--- OUTSIDE RECORDS SUMMARY | 2021-09-28 02:20 | XMS_ITS | Encounter Summary ---
:1950 Author Organization [facility] Address [address] [place] [address] Care Team Providers Name Role Phone Katia Mccallum PA-C Primary Care Provider [phone] Encounter Details Date Type Department Care Team Description 08/13/2018 Historical Results [facility] - Katia Mccallum Only [facility] Lab [address] [facility] [facility] [place] [address] [place] [address] [phone] Social History Tobacco Use Types Packs/Day Years [...] Diagnosis Comme nts HEPATIC & CMP Routine 08/13/2018 11:28 Results fo r this COMBO,FASTING - PMC EDT procedur e are in the results section. documented in this encounter Results (ABNORMAL) HEPATIC & CMP COMBO,FASTING - PMC (08/13/2018 11:28 EDT) Sodium 125 (L) 136 - 145 [facility] Potassium 4.9 3.5 - 5.1 [facility] Chloride 91 (L) 96 - 107 [facility] CO2 Total 25.4 21 - 32 [facility] Anion Gap 8.6 [facility] BUN 7 7 - 25 [facility] Creatinine 0.59 (L) 0.7 - 1.30 [facility] Estimated GFR >60 >60 [facility] Comment: CENTER LAB EGFR UNITS: mL/min/1.73 m 2 CKD-EPI Equation used to calculate. Glucose 88 FASTIN-99 [facility] Calcium 8.1 (L) 8.5 - 10.5 [facility] CALCIUM,CORRECTED - 8.7 8.5 - 10.5 [facility] BILIRUBIN - [facility] 0.20 0.00 - 1.00 [facility] AST 40 (H) 15 - 37 [facility] ALT 45 12 - 78 [facility] Alkaline Phosphatase 112 46 - 116 [facility] Total Protein 7.1 6.4 - 8.2 [facility] Albumin 3.2 (L) 3.4 - 5.0 [facility] GLOBULIN - PMC 3.9 [facility] ALBUMIN/GLOBULIN 0.8 [facility] Specimen Performing Organization Address City/State/ZIP Code Phon e Number [facility] [address] [place] [address] [facility] documented in this encounter Visit Diagnoses Not on filedocumented in this encounter Care Teams Fire Extinguisher Repairer Relationship Specialty Start Date End Date Katia Mccallum PA-C PCP - General 05/02/[address] [facility] [place] [id number] documented as of this encounter
--- OUTSIDE RECORDS SUMMARY | 2021-09-28 02:20 | XMS_ITS | Encounter Summary ---
:1950 Author Organization [facility] Address [address] [place] [address] Care Team Providers Name Role Phone Katia Mccallum PA-C Primary Care Provider [phone] Encounter Details Date Type Department Care Team Description 06/25/2018 Historical Results [facility] - Maicol Crespo MD Only [facility] [address] [facility],1ST FLOOR [address] [place], [place] [address] [place] [address] [phone] Social History Tobacco Use Types Packs/Day Years [...] Name Priority Date/Time Associated Diagnosis Comme nts CRISTO WELCH, IGE - Routine 06/25/2018 18:50 Resu lts for this PMC EDT procedure are i n the results section. MOROCCAN PLANTAIN, Routine 06/25/2018 18:50 Result s for this IGE EDT procedure are i n the results section. HOUSE DUST Routine 06/25/2018 18:50 Results for this MITES/D.P., IGE - EDT procedure are in PMC the results section. [facility] Routine 06/25/2018 18:50 Resul ts for this ALLERGEN,S - PMC EDT procedure a re in the results section. HEPATIC & CMP Routine 06/25/2018 18:50 Results fo r this COMBO,FASTING - PMC EDT procedur e are in the results section. documented in this encounter Results CRISTO WELCH IGE - PMC (06/25/2018 18:50 EDT) CRISTO WELCH, IGE <0.35 [facility] - PMC Comment: CENTER LAB Class 0 (Negative <0.35) Test Performed by: [address] [address] Specimen Performing Organization Address [facility] Phon e Number [facility] [address] [place] [id number] [place] [address] LAB MOROCCAN PLANTNICO, IGE - PMC (06/25/2018 18:50 EDT) ENGLISH MAXWELL, <0.35 [facility] Comment: CENTER [facility] Class 0 (Negative <0.35) Test Performed by: [address] [address] Specimen Performing Organization Address City/[facility] Phon e Number [facility] [address] [place] [id number] [place] [address] LAB HOUSE DUST MITES/D.P., IGE - PMC (06/25/2018 18:50 EDT) HOUSE DUST <0.35 [facility] MITES/D.P., IGE - Comment: CENTER LAB PMC Class 0 (Negative <0.35) Test Performed by: [address] [address] Specimen Performing Organization Address City/[facility] Phon e Number [facility] [address] [place] [address] [facility] ALLERGEN,S - PMC (06/25/2018 18:50 EDT) ALTERNARIA TENUIS, <0.35Comment: Class [facility] IGE - PMC 0 (Negative <0.35) [facility] CLAD - PMC <0.35Comment: Class [facility] 0 (Negative <0.35) [facility] HOUSE DUST <0.35 [facility] MITE/D.F., IGE Comment: [facility] Class 0 (Negative <0.35) Test Performed by: [facility] [address] [place] [address] CAT - PMC <0.35Comment: Class [facility] 0 (Negative <0.35) [facility] DOG DANDER, IGE - <0.35Comment: Class [facility] PM[facility] 0 (Negative <0.35) [facility] YAYA GRASS IGE - <0.35Comment: Class [facility] PMC 0 (Negative <0.35) [facility] LAMBS QUARTER, IGE <0.35Comment: Class [facility] - PMC 0 (Negative <0.35) [facility] OAK - PMC <0.35Comment: Class [facility] 0 (Negative <0.35) [facility] RAGWEED, SHORT, IGE <0.35Comment: Class [facility] - PMC 0 (Negative <0.35) [facility] CONNER GRASS, IGE <0.35Comment: Class [facility] - PMC 0 (Negative <0.35) [facility] Specimen Performing Organization Address City/State/ZIP Code Phon e Number [facility] [address] [place], [place] [id number] [place] [address] LAB (ABNORMAL) HEPATIC & CMP COMBO,FASTING - PMC (06/25/2018 18:50 EDT) Sodium 130 (L) 136 - 145 [facility] Potassium 4.3 3.5 - 5.1 [facility] Chloride 93 (L) 96 - 107 [facility] CO2 Total 26.4 21 - 32 [facility] Anion Gap 10.6 [facility] BUN 15 7 - 25 [facility] Creatinine 0.86 0.7 - 1.30 [facility] Estimated GFR >60 >60 [facility] Comment: CENTER LAB EGFR UNITS: mL/min/1.73 m 2 CKD-EPI Equation used to calculate. Glucose 89 FASTIN-99 [facility] Calcium 8.6 8.5 - 10.5 [facility] CALCIUM,CORRECTED - 9.0 8.5 - 10.5 [facility] BILIRUBIN - [facility] 0.30 0.00 - 1.00 [facility] AST 55 (H) 15 - 37 [facility] ALT 65 12 - 78 [facility] Alkaline Phosphatase 115 46 - 116 [facility] Total Protein 7.5 6.4 - 8.2 [facility] Albumin 3.5 3.4 - 5.0 [facility] GLOBULIN - [facility] 4.0 [facility] ALBUMIN/GLOBULIN 0.8 [facility] RATIO - [facility] Specimen Performing Organization Address City/State/ZIP Code Phon e Number [facility] [address] [place] [address] [facility] documented in this encounter Visit Diagnoses Not on filedocumented in this encounter Care Teams Fusing Machine Operator Relationship Specialty Start Date End Date Katia Mccallum PA-C PCP - General 05/02/[address] [place] [id number] documented as of this encounter
--- OUTSIDE RECORDS SUMMARY | 2021-09-28 02:20 | XMS_ITS | Encounter Summary ---
:1950 Author Organization [facility] Address [address] [place] [address] Care Team Providers Name Role Phone Katia Mccallum PA-C Primary Care Provider [phone] Reason for Visit Reason Onset Date Comments Appointment Related 02/07/2020 PA REQUEST Encounter Details Date Type Department Care Team Description 02/07/2020 Telephone [facility] - Shelley Reinoso MD Appointment Related ([facility] [address] REQUEST) Cardiology Clinic [place], [place] [address] [facility] [phone] [place], [place] [address] Social History Tobacco Use Types Packs/Day Years [...] this encounter Miscellaneous Notes Telephone Encounter - Isidra Edmonds - 02/07/2020 1330 EST MCR-NO PA REQUIRED NAVID-NO PA REQUIRED elephone Encounter - Arturo Herrera - 02/07/2020 1327 EST PA REQUEST ECHOCARDIOGRAM [id number] 02/29/20 DYSPNEA (R06.0) VITA LIVE THANK YOU! documented in this encounter Plan of Treatment Not on filedocumented as of this encounter Visit Diagnoses Not on filedocumented in this encounter Care Teams Pump Mechanic Relationship Specialty Start Date End Date Katia Mccallum PA-C PCP - General 05/02/[address] [place] [id number] documented as of this encounter
--- OUTSIDE RECORDS SUMMARY | 2021-09-28 02:20 | XMS_ITS | Encounter Summary ---
:1950 Author Organization [facility] Address [address] [place] [address] Care Team Providers Name Role Phone Katia Mccallum PA-C Primary Care Provider [phone] Encounter Details Date Type Department Care Team Description 04/10/2020 Travel Social History Tobacco Use Types Packs/Day [...] on filedocumented in this encounter Care Teams Ply Splicer Relationship Specialty Start Date End Date Katia Mccallum PA-C PCP - General 05/02/17 [address] [place] [address] documented as of this encounter
--- OUTSIDE RECORDS SUMMARY | 2021-09-28 02:20 | XMS_ITS | Encounter Summary ---
:1950 Author Organization [facility] Address [address] [place] [address] Care Team Providers Name Role Phone Katia Mccallum PA-C Primary Care Provider [phone] Reason for Visit Reason Comments Pacemaker Problem Encounter Details Date Type Department Care Team Description 04/12/2020 Office Visit [facility] Tony Rosenberg, Heart block AV third Cardiology - Nicolasa OAKES degree ([facility]) [address] (Primary Dx) [place] [address] [address] [place] [address] Social History Tobacco Use Types [...] encounter Progress Notes Tony Rosenberg MD - 04/12/2020 1216 EST [facility] CARDIOLOGY - CROPSEY PROGRESS / FOLLOWUP NOTE - 04/12/2020 PROBLEM LIST 1. Third-degree heart block, status post dual chamber pacemaker insertion, complicated by pericardial effusion and need for 12-lead repositioning. 2. Hyponatremia. 3. RA lead failure. SUBJECTIVE: Mr Mera returns to the clinic at [facility] to discuss the issuessurrounding his pacemaker. The atrial lead of the pacemaker has demonstrated significant noise Thepatient has complained of intermittent episodes of sharp pain in the left chest, which he feels is electric Because of these symptoms, and due to issues with the atrial lead he returns to clinic. Mr Mera does have shortness of breath and dyspnea on exertion. He has not had shahnaz syncope. He has had no chest pain other than the electric pain in the left chest. The left chest pain is not positional or pleuritic. It tends to happen at the end of the day. MEDICATIONS: Albuterol p.r.n. Calcium with vitamin D. Doxycycline. Breo Ellipta 200 mcg/25 mcg 1 puff daily. Flonase as needed. Folic acid 1 mg daily. Ibuprofen p.r.n.. Lisinopril 5 mg daily. Metoprolol 50 b.i.d. Protonix 40 daily. Thiamine 100 mg daily. PAST MEDICAL HISTORY: Mr Mera has had 2 recent hospitalizations, one at [facility] and the other at [facility] for treatment of hyponatremia. PHYSICAL EXAMINATION: Mr Mera weighs 220 pounds. Blood pressure is 136/90, pulse of 80, respiratory rate is 20. He is alert and oriented x3. JVP is not elevated. The carotid upstrokes are brisk. Lungs are clear. Cardiac: Normal S1, S2 without significant murmurs, gallops, or rubs. The abdomen is soft and nontender. The extremities have no clubbing, cyanosis or edema. DIAGNOSTIC DATA: A 12-lead ECG shows atrial sensing and ventricular pacing. The patient's pacemaker was interrogated. There is significant artifact on the atrial intracardiac electrogram. ASSESSMENT AND PLAN; I had long discussion with Mr Mera about his atrial lead and the fact that itseems to have either a loose set screw or to be intermittently leaking current. The impedance is fine. I could not manipulate his upper extremity and get a significant change in his lead parameters. Non etheless, I think it would be reasonable for him to have the atrial lead removed and replaced. Sincethe lead is 3 years old, this would need to be done in the operating room with the availability of using the laser as needed. I have asked Mr Mera to see my colleague, Dr Rogerio Browne, to set up lead extraction and new lead insertion. Thanks again for allowing me to participate in his care. Tony Rosenberg MD / CD Dictation ID: [id number] cc: documented in this encounter Plan of Treatment Not on filedocumented as of this encounter Visit Diagnoses Diagnosis Heart block AV third degree (HCC-CMS) (H CC) - Primary Atrioventricular block, complete documented in this encounter Care Teams Cardiopulmonary Physical Therapist Relationship Specialty Start Date End Date Katia Mccallum PA-C PCP - General 05/02/[address] [place] [id number] documented as of this encounter
--- OUTSIDE RECORDS SUMMARY | 2021-09-28 02:20 | XMS_ITS | Encounter Summary ---
:1950 Author Organization [facility] Address [address] [place] [address] Care Team Providers Name Role Phone Katia Mccallum PA-C Primary Care Provider [phone] Reason for Visit Reason Onset Date Comments Other 08/15/2017 Returning Call 08/15/2017 To Belinda Encounter Details Date Type Department Care Team Description 08/15/2017 Telephone [facility] Dileep, [place]; Re turning Call Cardiology - Chaitanya Trevino RN (To Belinda) [address] [place], [place] [address] Social History Tobacco Use [...] Telephone Encounter - Belinda Falk RN - 08/15/2017 1410 EDT Relayed message to Nila who is covering for Yessica that patient should remain on colchicine until hasfollow-up with Dr. Torres. elephone Encounter - Kasia Nunez - 08/15/2017 1313 EDT Reason for Call: Other and Returning Call (To Belinda) Summary/Symptoms: Yessica called back. If you cannot reach her please press 0 and have her paged Kasia Nunez 08/15/2017 13:13 elephone Encounter - Belinda Falk RN - 08/15/2017 1255 EDT Call back to Yessica at PCP office message left for Yessica to call office back. Reviewed medication in question Colchicine with Jered Atwood and her recommendations to continue medication until evaluated by Dr. Torres. Call back number given. elephone Encounter - Belinda Falk RN - 08/15/2017 1243 EDT Spoke with Yessica (career and transition teacher at PCP) in regards to patient Tim Argueta. Mr Argueta contacted PCPoffice not feeling well SOB, had was also asking for refill on medication one being Colchicine. Yessica had spoken to office (see telephone encounter for 07/16/17) about colchicine, medication was to be addressed at OV with Dr. Rosenberg on 08/06. Patient was a no show for OV with Dr. Rosenberg on 08/06. Discussed with Yessica patient needs to follow-up with primary teller coordinator in [place] Dr. Torres.Per Yessica patient has not seen Dr. Torres since before his first admission to [facility] on 04/30/17. Mentioned to Yessica, patient needs to be following up with PCP and primary teller coordinator. Yessica expressed understanding and will reach out to Dr. Torres's office at [facility]. Discharge summaries and last OV note faxed to Dr. Torres's office. Discussed with Yessica if patient is having increased SOB and worsening symptoms, and is not able to be seen locally. He may need to go to the ER, to be evaluated and imaging completed. Per Yessica she was to contact patient and suggest patient go to ER. elephone Encounter - Belinda Falk RN - 08/15/2017 1121 EDT Call placed to Yessica regarding Tim Mera unable to reach by phone. Left detailed message, patientis [place] patient and no showed for visit with Dr. Rosenberg on 08/06. Instructed Yessica to reach out [facility] where his primary teller coordinator is established on voice mail. documented in this encounter Plan of Treatment Not on filedocumented as of this encounter Visit Diagnoses Not on filedocumented in this encounter Care Teams Park Ranger Relationship Specialty Start Date End Date Katia Mccallum PA-C PCP - General 05/02/17 [address] [place] [id number] documented as of this encounter
--- OUTSIDE RECORDS SUMMARY | 2021-09-28 02:20 | XMS_ITS | Encounter Summary ---
:1950 Author Organization [facility] Address [address] [place] [address] Care Team Providers Name Role Phone Katia Mccallum PA-C Primary Care Provider [phone] Encounter Details Date Type Department Care Team Description 12/12/2018 Results Only [facility] - Candelaria Vila MD [facility] Lab [address] [place] [address] [place], [place] [address] (Wo rk) Social History Tobacco [...] Associated Comments Diagnosis COMPLETE BLOOD COUNT Routine 12/12/2018 22:15 Res ults for this AND DIFFERENTIAL EDT procedure a re in the results section. documented in this encounter Results (ABNORMAL) COMPLETE BLOOD COUNT AND DIFFERENTIAL (12/12/2018 22:15 EDT) Pathologist Sig nature WBC 10.1 4.0 - 10.[address] LAB RBC 3.85 (L) 4.70 - 6.[address] LAB Hemoglobin 13.1 (L) 13.5 - 18.0 [facility] g/dL [place] LAB HCT 36.1 (L) 42.0 - 52.0 % [facility] MCV 93.8 78 - 100 fL [facility] MCH 34.0 (H) 27 - 31 pg [facility] LAB MCHC 36.3 (H) 32 - 36 g/dL [facility] RDW-CV - PMC 11.9 11.5 - 14.0 % [facility] PLATELET COUNT - [facility] 208 150 - [address] LAB NEUTROPHILS % (AUTO) 52.5 42.0 - 75.0 % [facility] LAB LYMPHOCYTES % (AUTO) 32.3 16.0 - 52.0 % [facility] LAB MONOCYTES % (AUTO) - 7.8 1.0 - 11.0 % [facility] LAB EOSINOPHILS % (AUTO) 5.5 0.0 - 7.0 % [facility] LAB BASOPHILS % (AUTO) - 1.4 0.0 - 4.0 % [facility] LAB NUCLEATED RBC % 0.0 <1 % [facility] (AUTO) [facility] LAB NEUTROPHILS # (AUTO) 5.3 1.5 - 6.[address] LAB LYMPHOCYTES # (AUTO) 3.3 1.0 - 3.[address] LAB MONOCYTES # (AUTO) - 0.8 <1.0 10 [facility] LAB EOSINOPHILS # (AUTO) 0.6 <0.7 10 3/[facility] LAB BASOPHILS # (AUTO) - 0.1 <0.1 10 3/uL [facility] LAB NUCLEATED RBC # 0.00 <1 10 3/uL [facility] (AUTO) - [facility] LAB Specimen Performing Organization Address City/State/ZIP Code Phon e Number [facility] [address] [place] [address] [facility] documented in this encounter Visit Diagnoses Not on filedocumented in this encounter Care Teams Fish Hatchery Assistant Relationship Specialty Start Date End Date Katia Mccallum PA-C PCP - General 05/02/[address] [place] [address] documented as of this encounter
--- OUTSIDE RECORDS SUMMARY | 2021-09-28 02:20 | XMS_ITS | Encounter Summary ---
:1950 Author Organization [facility] Address [address] [place] [address] Care Team Providers Name Role Phone Katia Mccallum PA-C Primary Care Provider [phone] Reason for Visit Reason Onset Date Comments Labs Only 07/22/2017 from 07/16 Encounter Details Date Type Department Care Team Description 07/22/2017 Telephone [facility] Yariel Rosenberg MD Labs Only (from 07/16) Cardiology - [facility] [address] [facility] [address] [facility] [address], [place] [address] [place] [address] (Wo rk) Social History Tobacco Use [...] Telephone Encounter - Belinda Falk RN - 07/23/2017 1123 EDT Call placed to Yessica regarding records unable to reach patient by phone. Message left on voice mailto call office back with call back number [phone]. Telephone Encounter - Belinda Falk RN - 07/23/2017 1054 EDT Call received from Yessica with questions on when patient's follow-up appointment was with Dr. Rosenberg, where the labwork needed to be sent to, and in put from cardiology. Provided Yessica the provider access line for PCP to discuss patient's care with Dr. Rosenberg. Also discussed with Yessica since patient is seen in [place] records are not accessible to our office(labs, and outside office notes). Yessica to review with PCP and formulate coordination of care with [facility]. Telephone Encounter - Belinda Falk RN - 07/22/2017 1500 EDT Call placed to Yessica regarding Tim Mera unable to reach patient by phone. Message left on voice mail to call office back with call back number [phone]. Telephone Encounter - Morena Lux - 07/22/2017 1456 EDT Yessica from [facility] Regarding patients labs from 07/16 Has anyone addressed them Please call to advise documented in this encounter Plan of Treatment Not on filedocumented as of this encounter Visit Diagnoses Not on filedocumented in this encounter Care Teams Sleep Tech Relationship Specialty Start Date End Date Katia Mccallum PA-C PCP - General 05/02/17 [address] [place] [id number] documented as of this encounter
--- OUTSIDE RECORDS SUMMARY | 2021-09-28 02:21 | XMS_ITS | Encounter Summary ---
:1950 Author Organization [facility] Address [address] [place] [address] Care Team Providers Name Role Phone Katia Mccallum PA-C Primary Care Provider [phone] Reason for Visit Reason Onset Date Comments Other 06/18/2017 discharged on .04.18 Follow-up 07/16/2017 Encounter Details Date Type Department Care Team Description 06/18/2017 Telephone [facility] Pierre Rubio (discharged on Cardiology - Chaitanya Wiggins MD .04.18); Follow-up [address] [facility], [address] [place] [address] (Wo rk) Social History Tobacco [...] this encounter Miscellaneous Notes Telephone Encounter - Felicitas Pearce RN - 07/16/2017 1310 EDT Riley WINSTON at [facility] called. States : Wt 2 weeks ago 210 lb, one week ago 220, today 07/16 224 lb Missed several doses of torsemide last week due to prescription issues with pharmacy. Has sl e=tracee Left calf/ankle. Increased SOB. Sl cough, greenish secretions. Crackles RLL 02 RA 98% Amb pulse 72-84. He also did ortho VS. States pt on a prednisone taper and needs more clled in to [facility] in [place], stated colchicinehas run out- not sure if pt needs a refill or not. States he called pt's PCP in [place] and that MD wants to know if RN should draw labs? Please call back JOAN as he is with the pt now. Routing to Giovanni Sam NP and Belinda Eddy RN and will also go speak with one of them as well. Let Riley WINSTON know that Belinda Eddy would call back. elephone Encounter - Isidra Telles - 07/16/2017 1257 EDT [facility] calling, Weight at 224, has been fluctuating Limited edema Has been winded Less endurance Cough has green secretions Some slight harsh breathing sounds Questions: Blood Work? Prednisone Taper seems to be off, will need a refill if continuing in the same manner Telephone Encounter - Belinda Falk RN - 06/18/2017 1630 EDT Spoke with Riley horta [facility] mentioned call placed to patient to confirm medication taking. Per patient he was taking Torsemide 40 mg daily and was not taking lasix. Per Riley this was differnet then what was discussed. Referred home Health to discuss care with Shailesh Torres MD in [place] and Katia Mccallum PA-C, [facility]. elephone Encounter - Belinda Falk RN - 06/18/2017 1623 EDT Spoke with patient he is not taking lasix, he mentioned that this was stopped prior to him going into the hospital 05/20. Patient mentioned he is taking torsemide 40mg a daily. Telephone Encounter - Felicitas Pearce RN - 06/18/2017 1523 EDT Will route to Belinda Eddy RN to Dr Joy elephone Encounter - Jose [place] - 06/18/2017 1440 EDT Patient was discharged on 06.16.17. He has been feeling ok. [facility] is calling to discuss his medications as he has been taking toursemide and lasix.Since he has been home he thought he was supposed to be taking both. Clarification is needed. They are also saying he should not be taking ibuprofen Family is going to be picking up Tylenol for him. documented in this encounter Plan of Treatment Not on filedocumented as of this encounter Visit Diagnoses Not on filedocumented in this encounter Care Teams Hypnotherapist Relationship Specialty Start Date End Date Katia Mccallum PA-C PCP - General 05/02/17 [address] [place] [id number] documented as of this encounter
--- OUTSIDE RECORDS SUMMARY | 2021-09-28 02:21 | XMS_ITS | Encounter Summary ---
:1950 Author Organization [facility] Address [address] [place] [address] Care Team Providers Name Role Phone Katia Mccallum PA-C Primary Care Provider [phone] Encounter Details Date Type Department Care Team Description 05/20/[address] [facility]- Unknown, PRISM Provider, Social History Tobacco Use Types Packs/Day Years Used Date Never Smoker Smokeless Tobacco: Never Used Sex Assigned at Date Recorded Not on file documented as of this encounter Functional Status Functional Status Response Date of Assessment Are you deaf or do you have serious difficulty hearing? No 04/30/2017 Are you blind or do you have serious difficulty seeing, No 04/30/2017 even when wearing glasses? Do you have serious difficulty walking or climbing No 04/30/2017 stairs? (5 years old or older) Do you have difficulty dressing or bathing? (5 years old No 04/30/2017 or older) Because of a physical, mental, or emotional condition, do No 04/30/2017 you have difficulty doing errands alone such as visiting a doctor's office or shopping? (15 years old or older) Cognitive Status Response Date of Assessment Because of a physical, mental, or emotional condition, do No 04/30/2017 you have serious difficulty concentrating, remembering, or making decisions? (5 years old or older) documented as of this encounter Plan of Treatment Pending Results Name Type Priority Associated Diagnoses Date/Ti me OUTSIDE IMAGES - OTHER Imaging 05/20 19:43 EDT CHEST documented as of this encounter Visit Diagnoses Not on filedocumented in this encounter Care Teams Meter Reading Clerk Relationship Specialty Start Date End Date Katia Mccallum PA-C PCP - General 05/02/17 [address] [place] [id number] documented as of this encounter
--- OUTSIDE RECORDS SUMMARY | 2021-09-28 02:21 | XMS_ITS | Encounter Summary ---
:1950 Author Organization [facility] Address [address] [place] [address] Care Team Providers Name Role Phone Katia Mccallum PA-C Primary Care Provider [phone] Encounter Details Date Type Department Care Team Description 05/20/2017 Results Only Imaging [facility]- Unknown, PRISM Provider, Social History Tobacco [...] Associated Diagnoses Date/Ti me OUTSIDE IMAGES - CT CHEST Imaging 19:43 EDT documented as of this encounter Visit Diagnoses Not on filedocumented in this encounter Care Teams Radiology Ct Technologist Relationship Specialty Start Date End Date Katia Mccallum PA-C PCP - General 05/02/17 [address] [place] [id number] documented as of this encounter
--- OUTSIDE RECORDS SUMMARY | 2021-09-28 02:21 | XMS_ITS | Encounter Summary ---
:1950 Author Organization [facility] Address [address] [place] [address] Care Team Providers Name Role Phone Katia Mccallum PA-C Primary Care Provider [phone] Reason for Visit Reason Comments Shortness of Breath Encounter Details Date Type Department Care Team Description 06/11/2017 Office Visit [facility] Tony Rosenberg SOB (s hortness of Cardiology - Nicolasa OAKES breath) (Primary Dx) [address] [address] [address] [place] [address] Social History Tobacco Use Types Packs/Day Years Used Date Never Smoker Smokeless Tobacco: Never Used Sex Assigned at Date Recorded Not on file documented as of this encounter Functional Status Functional Status Response Date of Assessment Are you deaf or do you have serious difficulty hearing? No 05/21/2017 Are you blind or do you have serious difficulty seeing, No 05/21/2017 even when wearing glasses? Do you have serious difficulty walking or climbing No 05/21/2017 stairs? (5 years old or older) Do you have difficulty dressing or bathing? (5 years old No 05/21/2017 or older) Because of a physical, mental, or emotional condition, do No 05/21/2017 you have difficulty doing errands alone such as visiting a doctor's office or shopping? (15 years old or older) Cognitive Status Response Date of Assessment Because of a physical, mental, or emotional condition, do No 05/21/2017 you have serious difficulty concentrating, remembering, or making decisions? (5 years old or older) documented as of this encounter Progress Notes Tony Rosenberg MD - 06/11/2017 1340 EDT Dictated. Tony Rosenberg MD - 06/11/2017 0000 EDT [facility] CARDIOLOGY - COLON PROGRESS / FOLLOWUP NOTE - 06/11/2017 PROBLEM LIST: 1. Third-degree heart block. a. Status post dual chamber pacemaker insertion. b. Pericardial effusion. c. Pacemaker generator lead repositioning and pericardiocentesis. 2. Large pleural effusions. 3. Hypertension. 4. Hyponatremia. SUBJECTIVE: Mr Mera was seen at the [facility] after his recent hospitalization at the [facility] for AV block. He had a dual-chamber pacemaker inserted at that time. He came back a few weeks later with large pericardial and pleural effusions. The leads were both repositioned. The pericardial effusion was tapped. The patient was sent home. Unfortunately, Mr Mera has continued to be extremely dyspneic since discharge. He has not had shahnaz syncope. He has had no fevers or chills. He does not have chest pain. MEDICATIONS: Tylenol p.r.n. Lisinopril 5 mg daily. Colchicine 0.6 mg b.i.d. Torsemide 40 mg daily. Ibuprofen p.r.n. ALLERGIES: He has no known drug allergies. REVIEW OF SYSTEMS: A 10-point review of systems was performed and significant for dyspnea on exertion. It is negative for fevers. No drainage from the pacemaker site. The remainder of the 10-point review of systems is unremarkable. OBJECTIVE: On physical exam, Mr Mera weighs 223 pounds. Blood pressure is 110/76, pulse is 100 andregular, respiratory rate is 20. The JVP is elevated. The carotid upstrokes are palpable. There are decreased breath sounds in each lung base. Cardiac exam: Tachycardic, normal S1, S2, soft systolic murmur. There are no rubs or gallops appreciated. There is a pacemaker in the left chest. The abdomen is soft, nontender without organomegaly. Extremities have 1+ bipedal edema. Neurologic exam is grosslyintact. DIAGNOSTIC DATA: A chest x-ray was performed at the outside clinic. It shows fairly substantial bilateral pleural effusions. Echocardiogram done in [facility] shows preserved LV systolic function. No significant pericardial effusion. Large bilateral pleural effusions. In summary, Mr Mera is a pleasant 66-year-old gentleman who presented to the hospital with complete heart block. After a dual-chamber pacemaker insertion he developed a large pericardial effusion, large pleural effusions and hyponatremia. The leads were repositioned. The pericardial effusion was tapped. The patient was sent home on diuretic therapy. Unfortunately, he has continued to be quite dyspneic, which I think is related to his large bilateral pleural effusions, despite diuretic therapy. I interrogated the patient's pacemaker. It is functioning normally. He has had several bursts of atrial tachycardia/atrial fibrillation. I think Mr Mera needs both of his pleural effusions tapped forsymptomatic relief. PLAN: I will arrange Mr Mera to be admitted to the [facility] tomorrow for bilateral thoracentesis. Tony Rosenberg MD 03 51 PM - Tony Rosenberg MD ln Dictation ID: [id number] cc: Shailesh Torres MD, [address] [address] Katia Mccallum PA-C, [place] [address] [place] [id number] documented in this encounter Plan of Treatment Not on filedocumented as of this encounter Visit Diagnoses Diagnosis SOB (shortness of breath) - Primary Shortness of breath documented in this encounter Care Teams Senior Executive Assistant Relationship Specialty Start Date End Date Katia Mccallum PA-C PCP - General 05/02/[address] [place] [id number] documented as of this encounter
--- OUTSIDE RECORDS SUMMARY | 2021-09-28 02:21 | XMS_ITS | Encounter Summary ---
:1950 Author Organization [facility] Address [address] [place] [address] Care Team Providers Name Role Phone Katia Mccallum PA-C Primary Care Provider [phone] Reason for Visit Reason Onset Date Comments Update [facility]12[facility] Encounter Details Date Type Department Care Team Description 06/12/2017 Telephone [facility] Yariel Rosenberg MD Update (on admission to Cardiology - [address]) 62 [facility] [address] [place], [place] [address] [place] [address], [place] [address] Social History Tobacco Use Types Packs/Day [...] this encounter Miscellaneous Notes Telephone Encounter - Caitie Atwood NP - 06/13/2017 0607 EDT [facility] pt [facility] elephone Encounter - Belinda Falk RN - 06/12/2017 1047 EDT Call placed back to Yessica, left a message giving an update on status of patient's admission. elephone Encounter - Belinda Falk RN - 06/12/2017 1025 EDT Spoke with Yessica PCP office, gave up-date handling through cardiology office. Telephone Encounter - Belinda Falk RN - 06/12/2017 1000 EDT LMTCB. Telephone Encounter - Andra Gonzáles V. - 06/12/2017 0924 EDT Reason for Call: Update (on admission to [facility]) Summary/Symptoms: Yessica would like to speak to the nurse regarding this patient being admitted to [facility] today at Dr. Paola Gonzáles 06/12/2017 9:24 documented in this encounter Plan of Treatment Not on filedocumented as of this encounter Visit Diagnoses Not on filedocumented in this encounter Care Teams Associate Consulting Engineer Relationship Specialty Start Date End Date Katia Mccallum PA-C PCP - General 05/02/17 [address] [place] [id number] documented as of this encounter
--- OUTSIDE RECORDS SUMMARY | 2021-09-28 02:21 | XMS_ITS | Encounter Summary ---
:1950 Author Organization [facility] Address [address] [place] [address] Care Team Providers Name Role Phone Katia Mccallum PA-C Primary Care Provider Reason for Visit Reason Onset Date Comments Other 07/16/2017 Encounter Details Date Type Department Care Team Description 07/16/2017 Telephone [facility] Caitie Atwood NP Other Cardiology - [address] [address] [address] [place], [place] [address] (Wo rk) Social History [...] Telephone Encounter - Caitie Atwood NP - 07/16/2017 8918 EDT I spoke to the respiratory care technician at the [place] primary care offices. There following the patient. He is afebrile and his lungs are clear. His O2 sat is acceptable. He did miss 3 doses of torsemide last week and this is been restarted at 20 mg per day. He did not take his prednisone taper correctly and is running out of prednisone. They have ordered more prednisone. They will have a BNP, BMP and CBCdrawn in the near future. The patient did miss his appointment yesterday. He will be seen by Dr. Rosenberg on August 06, 2017. documented in this encounter Plan of Treatment Not on filedocumented as of this encounter Visit Diagnoses Not on filedocumented in this encounter Care Teams Human Resource Manager Relationship Specialty Start Date End Date Katia Mccallum PA-C PCP - General 05/02/[address] [place] [id number] documented as of this encounter
--- OUTSIDE RECORDS SUMMARY | 2021-09-28 02:21 | XMS_ITS | Encounter Summary ---
:1950 Author Organization [facility] Address [address] [place] [address] Care Team Providers Name Role Phone Katia Mccallum PA-C Primary Care Provider [phone] Reason for Referral Follow Up (3 - 10 Business Days) - New Request Specialty Diagnoses / Procedures Referred By Contact Refer red To Contact Diagnoses Hyponatremia Pericardial effusion Heart block Acute on chronic diastolic congestive heart failure (HCC-CMS) ([facility]) Acute pericarditis, unspecified type Vini Mathis MD Jupin, Katelyn Doran, [address] [place] [address] [address] [place] [address] Phone: Fax: Referral ID Status Reason Start Expiration Visits Visits Date Date Requested Authorized [id number] New Request Continuity of 05/27/2017 1 1 Care Question Answer Reason for Request: post hosp f/u visit Reason for Visit Reason Comments Chest Pain Patient arrives as transfer from [facility] for pleuritic chest pain and new diagnosis CHF after pacemaker placement at [facility] two weeks ago. Dyspnea with exertion, breat h sounds course crackles. Alert and oriented. Encounter Details Date Type Department Care Team Description 05/20/2017 - [facility] Laly Kim MD [address] [facility], [address] [place] [id number] Hyponatremia (Primary Dx); 05/27/2017 Encounter Cardiac/Telemetry Akash Reyes MD [address] [phone] Pericardial effusion; Unit Andres Luis MD [address] [address] Heart block; [address] [place] [address] Tony Flores MD [address] [place] [address] Acute on chronic diastolic congestive he art failure (CMS-HCC) ([facility]); [place], [place] Seng Brody Sa, MD [address] [address] Acute pericarditis, unspecified type [address] Social History Tobacco Use Types Packs/Day Years Used Date Never Smoker Smokeless Tobacco: Never Used Sex Assigned at Date Recorded Not on file documented as of this encounter Last Filed Vital Signs Vital Sign Reading Time Taken Comments Blood Pressure 106/69 05/27/2017 0819 EDT Pulse 80 05/26/2017 0829 EDT Temperature 36.1 ??C (97 ??F) 05/27/2017 0819 EDT Respiratory Rate 16 05/27/2017 0819 EDT Oxygen Saturation 96% 05/27/2017 0819 EDT Inhaled Oxygen Concentration - - Weight 102.6 kg (226 lb 4.8 oz) 05/27/2017 0327 EDT Height 180.3 cm (5' 11) 05/20/2017 2220 EDT Body Mass Index 31.56 05/20/2017 2220 EDT documented in this encounter Functional Status Functional [...] or older) documented as of this encounter Discharge Diagnoses Diagnosis I30.9 Acute pericarditis, unspecified-I3 0.9[ICD-10-CM] T82.190A Other mechanical complication o f cardiac electrode, initial encounter-T82.190A[ICD-10-CM] E87.1 HYPO-OSMOLALITY AND HYPONATREMIA[I CD-10-CM] I50.32 Chronic diastolic (congestive) he art failure-I50.32[ICD-10-CM] J98.11 Atelectasis-J98.11[ICD-10-CM] I11.0 Hypertensive heart disease with he art failure-I11.0[ICD-10-CM] I95.9 Hypotension, unspecified-I95.9[ICD -10-CM] Z95.0 Presence of cardiac pacemaker-Z95. 0[ICD-10-CM] documented in this encounter Discharge Summaries Vini Mathis MD - 05/21/2017 1159 EDT Cardiology Discharge Summary Primary Care Provider: Katia Mccallum Attending Physician: No att. providers found Admit Date: 05/20/2017 Discharge Date: 05/27/2017 Disposition: Home or self care Problems and Procedures Admitting Diagnosis: Hyponatremia Final Hospital Diagnosis: Pericardial effusion Additional Problems Managed in the Hospital Active Hospital Problems Diagnosis Date Noted ??? *Pericardial effusion 05/20/2017 ??? Acute pericarditis 05/27/2017 ??? Hyponatremia 05/20/2017 Resolved Hospital Problems Diagnosis Date Noted Date Resolved ??? Acute on chronic diastolic congestive heart failure (CMS-HCC) 05/01/2017 05/27/2017 Hospital Course David Mera is a 66 y.o. male who presents as a transfer for pericardial effusion in the setting of worsening cough and dyspnea. He previously has had no medical care in the past until he was last admitted here from 04/30-05/04 for exertional dyspnea found to have hypertensive urgency and asymptomaticcomplete heart block with a rate in the 30s. He underwent a pacemaker on 05/02/17 for complete heart block, Lyme antibody negative. During that admission he was started on amlodipine and chlorthalidone. ?? He presented to [facility] ED 05/20 with orthopnea and cough, and CT chest showed pericardial effusion. He was transferred to [facility] ED for pericardiocentesis. In the ED he was hemodynamically stable, bedside echo showed no tampanode. He was hyponatremic to 116 on admission, likely hypervolemic hyponatremia. Pericardiocentesis done 05/21, 720 cc serosanguinous fluid drained. A drain was left in place until 05/23 and removed with follow up echo showing only minimal pericardial effusion, pt asymptomatic. Additionally 05/21 his PPM leads were adjusted, and CXR showed good placement. Nephrology was consulted and torsemide started for hypervolemic hyponatremia, with fluid restriction. His sodium graduallyimproved. After reports of pleuritic CP and dyspnea a CXR was obtained and showed nearly stable L pleural effusion with likely atelectasis. The Pt was initiated on ibuprofen and colchicine for treatment of pericarditis and discharged in stable condition on RA after passing a walking O2 desat test.?? Allergies and Immunizations No Known Allergies There is no immunization history on file for this patient. Transition of Care Plans Condition at Discharge Stable Discharge Medications: START taking these medications Sig colchicine 0.6 mg tablet Commonly known as: COLCRYS Notes to Patient: TWICE A DAY Take 1 Tab by mouth 2 times daily. Quantity: 60 Tab ibuprofen 600 mg tablet Commonly known as: MOTRIN Notes to Patient: 3 TIMES A DAY Take 1 Tab by mouth 3 times daily for 14 days. Quantity: 42 Tab torsemide 20 mg tablet Commonly known as: DEMADEX Notes to Patient: TWICE A DAY Take 2 Tabs by mouth daily. Quantity: 60 Tab CONTINUE taking these medications Sig acetaminophen 500 mg tablet Commonly known as: TYLENOL Take 1,000 mg by mouth 2 times daily. Is the patient being discharged with a diagnosis of Systolic Heart Failure? No Coumadin Management N/A Non-Cardiac Studies at Time of Discharge none Results Pending at Discharge Test results still pending from this admission Procedure Component Value Units Date/Time Respiratory Virus Detection [[id number]] Collected: 05/26/17 1157 Lab Status: Preliminary result Specimen: Nasopharynx Updated: 05/27/17 1425 Result No RSV, Influenza A, or Influenza B detected by PCR Result No Metapneumovirus detected by PCR. Result Delay in some virus(es) result(s), testing being repeated and/or confirmed. Anaerobe Culture/Smear (inc. aerobes), Fluid [[id number]] Collected: 05/23/17 0747 Lab Status: Preliminary result Specimen: FOSMIC from Pericardial Fluid Updated: 05/25/17 1146 Gram Smear Result Few Polys No bacteria seen Result No growth Fungus Culture/Smear, Other [[id number]] Collected: 05/23/17 0747 Lab Status: Preliminary result Specimen: FOSMIC from Pericardial Fluid Updated: 05/23/17 1420 Fungal Smear No fungi seen Result PENDING Last Lab Results at Discharge Creatinine: Lab Results Component Value Date CREATININE 0.63 (L) 05/27/2017 CBC: Lab Results Component Value Date WBC 6.74 05/27/2017 RBC 3.43 (L) 05/27/2017 HGB 11.3 (L) 05/27/2017 HCT 32.2 (L) 05/27/2017 MCV 94 05/27/2017 MCH 32.9 05/27/2017 MCHC 35.1 05/27/2017 PLT 308 05/27/2017 DIFFTYPE Automated 05/21/2017 Electrolytes: Lab Results Component Value Date NA 129 (L) 05/27/2017 K 3.9 05/27/2017 CL 87 (L) 05/27/2017 CO2 33 (H) 05/27/2017 Lab Results Component Value Date HGBA1C 5.7 05/01/2017 Discharge Follow Up Appointments Scheduled with [facility] Upcoming Appointments Jun 04, 2017 16:00 EDT Post Hospital Visit with Tony Rosenberg MD [facility] Cardiology [facility] (--) [address] [place] [phone] Appointments Outside of [facility] We Will Schedule Follow-up appointments and procedures Amb Consult/Follow Up Primary Care Physician Reason for Request: post hosp f/u visit Authorizing Provider: Vini Mathis MD Additional Information: Cardiology follow up FriJune 04, 2017 at [address] Justin Rosenberg at the [facility]. You should be notified of appointment time. If you do not head by FriJune 01, please call [phone] to find out the time. Cardiology follow up on June 16, 2017 at 2:[address] Torres at the [facility] has previously scheduled. Clinic number [id number] Studies We Will Schedule Follow-up labs and tests Basic Metabolic Panel (BMP) Complete by: Jun 02, 2017 (Approximate) Scheduling Instructions: Blood Test and Fasting How long do I have to fast for before a blood test? - If a fasting blood test is ordered, you should not have anything to eat or drink (except water) for at least eight hours. This usually involves an overnight fast. - You should continue to take any prescription medications, unless your physician directed you not to take them. - Smoking and exercise may affect your results as well, so you should refrain from these activitiesas much as possible during this time. If you have any concerns about refraining from food for this period of time, talk to your physician. Authorizing Provider: Vini Mathis MD Discharge summary completed in part by: Vini Mathis MD Internal Medicine PGY-1 Pager: [phone] 05/27/2017 20:52 Associated attestation - Seng Brody Sa, MD - 05/30/2017 1206 EDT Attending Attestation: I saw and evaluated the patient 05/27. I discussed the case with the resident/OIL BOILER/fellow and agree with the findings and plan as documented above. Seng person Sa, MD Cardiac Electrophysiology documented in this encounter Discharge Instructions Joesph-Coleen Gr NP - 05/27/2017 10:25 EDT Cardiology follow up FriJune 04, 2017 at [address] Justin Rosenberg at the [facility]. You should be notified of appointment time. If you do not head by FriJune 01, please call [phone] to find out the time. Cardiology follow up on June 16, 2017 at 2:[address] Torres at the [facility] has previously scheduled. Clinic number [id number] Discharge Instr - Other Melida Mas RN - 05/21/2017 8:14 EDT Remember the acronym BRENDA - Diet: low salt - Activity: daily moderate activity for 30 minutes - Medication administration: refer to the After Visit Summary - Everyday weight: weigh yourself daily and record in weight log - Symptom monitoring and follow though: call your doctor's office If you experience rapid weight gain (3 or more pounds in 2 days), increased shortness of breath, or increase leg swelling. Discharge Instr - Zee Lundy RN - 05/24/2017 7:54 EDT Remember the acronym BRENDA - Diet: low salt - Activity: daily moderate activity for 30 minutes - Medication administration: refer to the After Visit Summary - Everyday weight: weigh yourself daily and record in weight log - Symptom monitoring and follow though: call your doctor's office If you experience rapid weight gain (3 or more pounds in 2 days), increased shortness of breath, or increase leg swelling. AttachmentsThe following attachments cannot be sent through Care Everywhere. HEART FAILURE: AVOIDING TRIGGERS (YAKUT)documented in this encounter Medications at Time of Discharge Medication Sig Dispensed Refills Start Date End Date acetaminophen (TYLENOL) 500 Take 1,000 mg by 0 mg tablet mouth 2 times daily. colchicine (COLCRYS) 0.6 mg Take 1 Tab by 60 Tab 0 05/27 tablet mouth 2 times daily. torsemide (DEMADEX) 20 mg Take 2 Tabs by 60 Tab 2 2017 tablet mouth daily. ibuprofen (MOTRIN) 600 mg Take 1 Tab by 42 Tab 0 018 06/10/2017 tablet mouth 3 times daily for 14 days. documented as of this encounter Ordered Prescriptions Prescription Sig Dispensed Refills Start Date End Date torsemide (DEMADEX) 20 mg Take 2 Tabs by 60 Tab 2 2017 tablet mouth daily. colchicine (COLCRYS) 0.6 Take 1 Tab by mouth 60 Tab 0 mg tablet 2 times daily. ibuprofen (MOTRIN) 600 mg Take 1 Tab by mouth 42 Tab 0 0 05/27/2017 06/10/2017 tablet 3 times daily for 14 days. documented in this encounter Discharge Disposition Disposition Code Departure Means Destination Home or Self Care documented in this encounter Progress Notes Desi Villatoro RN - 05/27/2017 1450 EDT CM Discharge Note: D/C home on 05/27 without home health services. Rachna Villatoro RN #[id number] Vini Mathis MD - 05/26/2017 0629 EDT Cardiology Progress note Service Date: 05/26/2017 Admit Date: 05/20/2017 23:34 Reason for Admission: 66 y.o. male admitted with a chief complaint of cough, orthopnea and now with a principal diagnosis of pericardial effusion. Events/ Procedures in the last 24 Hours: No acute events Subjective/Objective Subjective This AM complaining of SOB that started last PM. Still having productive cough. Endorsed later in the day a pleuritic sternal/chest pressure. He denies nausea, vomiting or diarrhea, no fever or chills.Voiding without difficulty. Ambulating some. Review of Systems Pertinent items are noted in Subjective/HPI Objective Vital Signs Patient Vitals for the past 8 hrs: BP Heart Rate Resp Temp SpO2 O2 Device 05/26/17 0400 - 93 BPM - - - - 05/26/17 0300 - 73 BPM - - - - 05/26/17 0200 - 74 BPM - - - - 05/26/17 0100 - 72 BPM - - - - 05/26/17 0003 100/66 75 BPM 18 36.6 ??C (97.9 ??F) 98 % None Weight: Patient Vitals for the past 8 hrs: Weight 05/26/17 0528 (!) 102.8 kg (226 lb 9.6 oz) Intake/Output Summary (Last 24 hours) at 05/26/17 06 Last data filed at 05/26/17 0407 Gross per 24 hour Intake 900 ml Output 2275 ml Net -1375 ml Physical Exam GENERAL: Well nourished, well developed. No apparent acute distress. HEENT: Normocephalic. Pupils are equal, round, and reactive to light, sclera anicteric, no conjunctival injection or d/c. Moist mucous membranes. RESPIRATORY: Normal work of breathing. Good aeration. Lungs clear to auscultation bilaterally CARDIAC: Regular rate and rhythm. Normal S1, S2. Pericardial drain site c/d/i. PPM site w/o erythema, TTP, fluctuance ABDOMEN: Soft. Non-tender and non-distended. No masses. + bowel sounds EXTREMITIES: Warm, well perfused, radial and pedal pulses intact. 1+ pitting edema to knees MSK: Normal bulk and tone. 5/5 directional survey drafter strength SKIN: No lesions, bruises, or rashes noted. NEURO: Awake, alert, and moves all extremities : No coleman Is PICC or central line present? No, PICC/Central line not present. Medications Reviewed and available in PRISM. Labs Reviewed: Results notable for Na 128 this AM. CBC: Recent Labs 05/24/17 0551 05/25/17 0559 05/26/17 0557 WBC 7.61 6.99 7.06 HGB 11.0* 10.5* 10.7* HCT 31.4* 29.5* 30.0* MCV 94 93 94 PLT 273 290 306 BMP: Recent Labs 05/24/17 0551 05/25/17 0559 05/25/17 1758 05/26/17 0557 05/26/17 1755 CREATININE 0.59* -- 0.54* -- 0.53* -- BUN 9* -- 9* -- 9* -- NA 128* < > 127* 130* 128* 129* K 3.9 < > 3.7 3.6 3.7 4.0 CL 83* < > 85* 83* 85* 84* CO2 36* < > 36* 36* 35* 35* MG 1.7 -- 1.7 -- 1.8 -- < > = values in this interval not displayed. Non-Invasive Findings last 24 hours: N/A, Telemetry: yes, paced rhythm ECG: Unchanged from prior, paced rhythm Does the patient have active heart failure? yes, acute on chronic, diastolic Assessment/Plan Assessment/Plan 66 y.o. male patient with history significant for recent hospitalization for complete heart block s/p PPM insertion on 05/03 who presents with worsening cough, found to have a large pericardial effusion and severe hyponatremia, now improving s/p pericardiocentesis and pacer lead adjustment. SOB today of potentially multifactorial etiology: CXR w/ slightly increased L pleural effusion and lung collapse/atelectasis. Suspect acute on chronic HF, vs. Atelectasis 2/2 splinting from pericarditis pain. Low suspicion at present for acute PE given lack of hypoxia, tachypnea. Pericardial effusion: Most likely related to recent PPM insertion, Lyme AB and TSH negative at last admission. S/p pericardiocentesis and pacer lead adjustment 05/21 PM - Vitals q4h - Tele - Pericardial drain- removed 05/23 - CTM PPM site erythema, Bcx x 2 NGTD - Repeat echo today with small stable pericardial effusion - Trial ibuprofen +/- colchicine as recent discontinuation of ketorolac raises suspicion for pericarditis - Encourage IS, acapella, and ambulation Severe Hypervolemic hyponatremia: improving, Na of 116 on admission. Hypervolemic hyponatremia in setting of heart failure and pericardial effusion. - Nephrology consult, recs: - 1.5 L fluid restriction - 40 mg QDTorsemide PO BID - On dc will likely do 40 mg torsemide PO QD - avoid thiazide diuretics ?? HTN: Previously on lisinopril, initially hypertensive, but now normo-hypotensive. 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 Chronic diastolic heart failure: Volume overload improving with increased diuresis - Holding Lasix/chlorthalidone - Torsemide 40 mg BID PO as above - Strict I&O - 1.5 L fluid restriction as above - Daily weights - Daily BUN, Cr VTE Prophylaxis Held d/t bloody pericentesis drain Discharge Plan Uncertain at this time Vini Mathis MD 05/26/17 Associated attestation - Seng Brody Sa, MD - 05/27/2017 1229 EDT Attending Attestation: I saw and evaluated the patient on 05/26/17. I discussed the case with the resident/OIL BOILER/fellow and agree with the findings and plan as documented above. Seng person Sa, MD Cardiac Electrophysiology William Salamanca RT - 05/25/2017 1329 EDT Respiratory Consult/Progress Note Indications for Respiratory therapy: airway clearance Data Vitals: Heart Rate: 88 BPM, Resp: 18, SpO2: 98 % FIO2/O2 Device: O2 Flow Rate (L/min): 3 l/min, , O2 Device: None, RT Orders: acapella x 1 Protocol Scoring: Bronchodilator/Inhalation Therapy Frequency Bronchodialator - Clinical Indications: No clinical indications Breath Sounds: Any abnormal BS decreased Response: No change / no treatment Pulse: <100 Resp Rate: <18 SOB: None Total Score: 1 Airway Clearance Therapy Frequency Airway Clearance - Clinical Indications: Rhonchi Breath Sounds: Rhonchi / crackles Sputum: Small (tsp) / None Consistency: None Cough Effort: Strong, non-productive Color: None Total Score: 1 Hyperinflation Therapy Frequency Hyperinflation - Clinical Indications: No clinical indications Breath Sounds: Diminished / crackles Surgery: No X-Ray / Atelectasis: No O2 Requirements: O2 at baseline Mobility Status: Mobile / at baseline Total: 2 Action/Events Respiratory events; acapella education done left at bedside pt refused to do deep strong cough because of pain RT Wayne 05/25/17 Luciano gomes MD - 05/25/2017 1300 EDT Cardiology Progress note Service Date: 05/25/2017 Admit Date: 05/20/2017 23:34 Reason for Admission: 66 y.o. male admitted with a chief complaint of cough, orthopnea and now with a principal diagnosis of pericardial effusion. Events/ Procedures in the last 24 Hours: No acute events, drain removed Subjective/Objective Subjective No complains today. He denies nausea, vomiting or diarrhea, no fever or chills. Breathing improved with diuresis. Appetite improved. Slept well overnight. Voiding without difficulty. Ambulating. Review of Systems Pertinent items are noted in Subjective/HPI Objective Vital Signs Patient Vitals for the past 8 hrs: BP Heart Rate Resp Temp SpO2 O2 Device 05/25/17 1126 112/69 71 BPM 18 36.4 ??C (97.5 ??F) 100 % None 05/25/17 0755 107/69 75 BPM 16 36.6 ??C (97.9 ??F) 96 % None Weight: No data found. Intake/Output Summary (Last 24 hours) at 05/25/17 1300 Last data filed at 05/25/17 1110 Gross per 24 hour Intake 1870 ml Output 2425 ml Net -555 ml Physical Exam GENERAL: Well nourished, well developed. No apparent acute distress. HEENT: Normocephalic. Pupils are equal, round, and reactive to light, sclera anicteric, no conjunctival injection or d/c. Moist mucous membranes. No nasal d/c. JVD improved. Bulbous nose RESPIRATORY: Normal work of breathing. Good aeration. Lungs clear to auscultation bilaterally CARDIAC: Regular rate and rhythm. Normal S1, S2. Pericardial drain site with clean dressing. PPM site erythematous, tender, no fluctuance ABDOMEN: Soft. Non-tender and non-distended. No masses. + bowel sounds EXTREMITIES: Warm, well perfused, radial and pedal pulses intact. 3+ pitting edema to knees MSK: Normal bulk and tone. 5/5 directional survey drafter strength SKIN: No lesions, bruises, or rashes noted. NEURO: Awake, alert, and moves all extremities : No coleman Is PICC or central line present? No, PICC/Central line not present. Medications Reviewed: No changes Labs Reviewed: Results notable for Na 128 this AM. CBC: Recent Labs 05/23/17 0642 05/24/17 0551 05/25/17 0559 WBC 8.96 7.61 6.99 HGB 11.0* 11.0* 10.5* HCT 30.8* 31.4* 29.5* MCV 93 94 93 PLT 254 273 290 BMP: Recent Labs 05/23/17 0642 05/24/17 0551 05/24/17 1802 05/25/17 0559 CREATININE 0.50* -- 0.59* -- 0.54* BUN 10 -- 9* -- 9* NA 124* < > 128* 127* 127* K 3.5 < > 3.9 3.7 3.7 CL 84* < > 83* 80* 85* CO2 33* < > 36* 37* 36* MG 1.7 -- 1.7 -- 1.7 < > = values in this interval not displayed. Non-Invasive Findings last 24 hours: N/A, Telemetry: yes, paced rhythm ECG: Unchanged from prior, paced rhythm Does the patient have active heart failure? yes, acute on chronic, diastolic Assessment/Plan Assessment/Plan 66 y.o. male patient with history significant for recent hospitalization for complete heart block s/p PPM insertion on 05/03 who presents with worsening cough, found to have a large pericardial effusion and severe hyponatremia, now improving s/p pericardiocentesis and pacer lead adjustment. Pericardial effusion: Most likely related to recent PPM insertion, Lyme AB and TSH negative at last admission. S/p pericardiocentesis and pacer lead adjustment 05/21 PM - Vitals q4h - Tele - Pericardial drain- removed 05/23 - CTM PPM site erythema, Bcx x 2 NGTD - Echo shows small reaccumulation of pericardial effusion- asymptomatic while walking. CTM clinically ?? Severe Hypervolemic hyponatremia: improving, Na of 116 on admission. Hypervolemic hyponatremia in setting of heart failure and pericardial effusion. - Nephrology consult, recs: - 1.5 L fluid restriction - 40 mg QDTorsemide PO BID - On dc will likely do 40 mg torsemide PO QD - avoid thiazide diuretics - checking Urine NA, K, U osmolality today - Lytes Q12H ?? HTN: Previously on lisinopril, initially hypertensive, but now normo-hypotensive. 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 Chronic diastolic heart failure: currently volume overloaded. Needs diuresis, cautious in setting ofnormotension. - Holding Lasix/chlorthalidone - Torsemide 40 mg BID PO as above - Strict I&O - 1.5 L fluid restriction as above - Daily weights - Daily BUN, Cr VTE Prophylaxis Held d/t bloody pericentesis drain Discharge Plan Uncertain at this time Luciano Christian MD 05/25/17 Tony Lopez MD - 05/24/2017 1003 EDT Cardiology Progress note Service Date: 05/24/2017 Admit Date: 05/20/2017 23:34 Reason for Admission: 66 y.o. male admitted with a chief complaint of cough, orthopnea and now with a principal diagnosis of pericardial effusion. Events/ Procedures in the last 24 Hours: No acute events, drain removed Subjective/Objective Subjective Mr. Mera reports persistent cough this morning but it is resolving, and his pain has resolved since the drain was removed. He denies nausea, vomiting or diarrhea, no fever or chills. His orthopnea has improved since the procedure and with diuresis. He did report good urine output yesterday. Review of Systems Pertinent items are noted in Subjective/HPI Objective Vital Signs Patient Vitals for the past 8 hrs: BP Heart Rate Resp Temp SpO2 O2 Device 05/24/17 0800 92/70 - - - - - 05/24/17 0745 (!) 87/70 111 BPM 18 37.3 ??C (99.1 ??F) 97 % None 05/24/17 0323 100/74 88 BPM 18 37.1 ??C (98.8 ??F) 95 % None Weight: Patient Vitals for the past 8 hrs: Weight 05/24/17 0515 (!) 108.1 kg (238 lb 6.4 oz) Intake/Output Summary (Last 24 hours) at 05/24/17 1004 Last data filed at 05/24/17 0600 Gross per 24 hour Intake 1160 ml Output 2775 ml Net -1615 ml Physical Exam GENERAL: Well nourished, well developed. No apparent acute distress. HEENT: Normocephalic. Pupils are equal, round, and reactive to light, sclera anicteric, no conjunctival injection or d/c. Moist mucous membranes. No nasal d/c. JVD improved. Bulbous nose RESPIRATORY: Normal work of breathing. Good aeration. Lungs clear to auscultation bilaterally CARDIAC: Regular rate and rhythm. Normal S1, S2. Pericardial drain site with clean dressing. PPM site erythematous, tender, no fluctuance ABDOMEN: Soft. Non-tender and non-distended. No masses. + bowel sounds EXTREMITIES: Warm, well perfused, radial and pedal pulses intact. 3+ pitting edema to knees MSK: Normal bulk and tone. 5/5 directional survey drafter strength SKIN: No lesions, bruises, or rashes noted. NEURO: Awake, alert, and moves all extremities : No coleman Is PICC or central line present? No, PICC/Central line not present. Medications Reviewed: No changes Labs Reviewed: Results notable for Na 128 this AM. CBC: Recent Labs 05/22/17 0409 05/23/17 0642 05/24/17 0551 WBC 10.75* 8.96 7.61 HGB 12.2* 11.0* 11.0* HCT 34.1* 30.8* 31.4* MCV 92 93 94 PLT 294 254 273 BMP: Recent Labs 05/22/17 0409 05/23/17 0642 05/23/17 1216 05/23/17 2140 05/24/17 0551 CREATININE 0.56* -- 0.50* -- -- 0.59* BUN 11 -- 10 -- -- 9* NA 122* < > 124* 126* 128* 128* K 4.0 < > 3.5 3.7 3.6 3.9 CL 84* < > 84* 81* 81* 83* CO2 29 < > 33* 36* 38* 36* MG 2.1 -- 1.7 -- -- 1.7 < > = values in this interval not displayed. Coags: No results for input(s): PROTIME, INR, PTT in the last 72 hours. LFTs: No results for input(s): ALT, AST, GGT, ALKPHOS, TBIL in the last 72 hours. Cardiac Biomarkers: No results for input(s): TROPONINI in the last 72 hours. Lipids: No results for input(s): CHOL, TRIG, HDL, LDLBASE, CHOLHDL in the last 72 hours. Non-Invasive Findings last 24 hours: N/A, Telemetry: yes, paced rhythm ECG: Unchanged from prior, paced rhythm Does the patient have active heart failure? yes, acute on chronic, diastolic Assessment/Plan Assessment/Plan 66 y.o. male patient with history significant for recent hospitalization for complete heart block s/p PPM insertion on 05/03 who presents with worsening cough, found to have a large pericardial effusion and severe hyponatremia, now improving s/p pericardiocentesis and pacer lead adjustment. Pericardial effusion: Most likely related to recent PPM insertion, Lyme AB, TSH negative at last admission. S/p pericardiocentesis and pacer lead adjustment 05/21 PM - Vitals q4h - Tele - Pericardial drain- removed 05/23 - CTM PPM site erythema, Bcx x 2 NGTD - Echo shows small reaccumulation of pericardial effusion- asymptomatic while walking. CTM clinically ?? Severe hyponatremia: 134 on 05/03 when discharged, but now with Na of 116 on admission to 117, 05/21, now 128 s/p pericardiocentesis. Hypervolemic hyponatremia in setting of heart failure and pericardial effusion. - Nephrology consult, recs: -1.5 L fluid restriction -40 mg QDTorsemide PO today -On dc will likely do 20 mg torsemide PO QD - Lytes Q12H ?? HTN: Previously on lisinopril, initially hypertensive, but now normo-hypotensive. 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 Chronic diastolic heart failure: currently volume overloaded. Needs diuresis, cautious in setting ofnormotension. - Holding Lasix/chlorthalidone - Torsemide 40 mg QD PO as above - Strict I&O - 1.5 L fluid restriction as above - Daily weights - Daily BUN, Cr VTE Prophylaxis Held d/t bloody pericentesis drain Discharge Plan Uncertain at this time- may be able to dc godwin Landry M.D., PGY-1 Internal Medicine Resident Pager [phone] 05/24/2017 10:04 Attestation statement: Supervising Physician I saw and examined Mr. Mera on Wednesday, May 24, 2017. I agree with the history, physical and the assessment plans as outlined above. YTTony Rosenberg MD - 05/23/2017 0911 EDT Cardiology Progress note Service Date: 05/23/2017 Admit Date: 05/20/2017 23:34 Reason for Admission: 66 y.o. male admitted with a chief complaint of cough, orthopnea and now with a principal diagnosis of pericardial effusion. Events/ Procedures in the last 24 Hours: No acute events, drain removed Subjective/Objective Subjective Mr. Mera reports persistent cough this morning but it is resolving, and his pain has resolved since the drain was removed. He denies nausea, vomiting or diarrhea, no fever or chills. His orthopnea has improved since the procedure. Review of Systems Pertinent items are noted in Subjective/HPI Objective Vital Signs Patient Vitals for the past 8 hrs: BP Pulse Heart Rate Resp Temp SpO2 O2 Device 05/23/17 0700 95/63 98 110 BPM 18 36.4 ??C (97.5 ??F) 95 % None 05/23/17 0315 100/65 - 122 BPM 20 37.3 ??C (99.1 ??F) 96 % None Weight: Patient Vitals for the past 8 hrs: Weight 05/23/17 0201 (!) 111.2 kg (245 lb 1.6 oz) Intake/Output Summary (Last 24 hours) at 05/23/17 0911 Last data filed at 05/23/17 0845 Gross per 24 hour Intake 2080 ml Output 900 ml Net 1180 ml Physical Exam GENERAL: Well nourished, well developed. No apparent acute distress. HEENT: Normocephalic. Pupils are equal, round, and reactive to light, sclera anicteric, no conjunctival injection or d/c. Moist mucous membranes. No nasal d/c. JVD improved. Bulbous nose RESPIRATORY: Normal work of breathing. Good aeration. Lungs clear to auscultation bilaterally CARDIAC: Regular rate and rhythm. Normal S1, S2. Pericardial drain site with clean dressing. PPM site erythematous, tender, no fluctuance ABDOMEN: Soft. Non-tender and non-distended. No masses. + bowel sounds EXTREMITIES: Warm, well perfused, radial and pedal pulses intact. 3+ pitting edema to knees MSK: Normal bulk and tone. 5/5 directional survey drafter strength SKIN: No lesions, bruises, or rashes noted. NEURO: Awake, alert, and moves all extremities : No coleman Is PICC or central line present? No, PICC/Central line not present. Medications Reviewed: No changes Labs Reviewed: Results notable for Na 124 this AM. CBC: Recent Labs 05/21/17 0557 05/22/17 0409 05/23/17 0642 WBC 6.90 10.75* 8.96 HGB 10.9* 12.2* 11.0* HCT 29.7* 34.1* 30.8* MCV 91 92 93 PLT 266 294 254 BMP: Recent Labs 05/20/17 2240 05/21/17 0557 05/22/17 0409 05/22/17 1836 05/22/17 2340 05/23/17 0642 CREATININE 0.44* -- 0.43* -- 0.56* -- -- -- 0.50* BUN 6* -- 5* -- 11 -- -- -- 10 NA 116* < > 117* < > 122* < > 124* 125* 124* K 3.6 < > 3.5 < > 4.0 < > 3.9 3.3* 3.5 CL 74* < > 76* < > 84* < > 81* 84* 84* CO2 32 < > 31 < > 29 < > 32 33* 33* CALCIUM 8.7 -- -- -- -- -- -- -- -- MG -- -- 1.8 -- 2.1 -- -- -- 1.7 < > = values in this interval not displayed. Coags: Recent Labs 05/21/17 0557 PROTIME 16.3* INR 1.4* LFTs: Recent Labs 05/21/17 0557 ALT 39 AST 33 ALKPHOS 81 TBIL 0.6 Cardiac Biomarkers: No results for input(s): TROPONINI in the last 72 hours. Lipids: No results for input(s): CHOL, TRIG, HDL, LDLBASE, CHOLHDL in the last 72 hours. Non-Invasive Findings last 24 hours: Findings CXR: pacer leads placed appropriately, Echo with smallpericardial effusion Telemetry: yes, paced rhythm ECG: Unchanged from prior, paced rhythm Does the patient have active heart failure? yes, acute on chronic, diastolic Assessment/Plan Assessment/Plan 66 y.o. male patient with history significant for recent hospitalization for complete heart block s/p PPM insertion on 05/03 who presents with worsening cough, found to have a large pericardial effusion and severe hyponatremia, now improving s/p pericardiocentesis and pacer lead adjustment. Pericardial effusion: Most likely related to recent PPM insertion, Lyme AB, TSH negative at last admission. S/p pericardiocentesis and pacer lead adjustment 05/21 PM - Vitals q4h - Tele - Pericardial drain- removed today - CTM PPM site erythema, Bcx x 2 NGTD - Echo shows small reaccumulation of pericardial effusion- will have nurse walk with patient to assess for symptoms ?? Severe hyponatremia: 134 on 05/03 when discharged, but now with Na of 116 on admission to 117, 05/21, now 122 s/p pericardiocentesis. Hypervolemic hyponatremia in setting of heart failure and pericardial effusion. - Nephrology consult, recs: -1.5 L fluid restriction -40 mg BID Torsemide PO today - Lytes Q8H ?? HTN: Previously on lisinopril, initially hypertensive, but now normo-hypotensive. 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 Chronic diastolic heart failure: currently volume overloaded. Needs diuresis, cautious in setting ofnormotension. - Holding Lasix/chlorthalidone - Torsemide 40 mg BID PO as above - Strict I&O - 1.5 L fluid restriction as above - Daily weights - Daily BUN, Cr VTE Prophylaxis Held d/t bloody pericentesis drain Discharge Plan Uncertain at this time- may be able to dc or Friday Jayne Landry M.D., PGY-1 Internal Medicine Resident Pager [phone] 05/23/2017 9:11 Attestation statement: Supervising Physician. I saw and examined Mr. Mera on morning rounds with the cardiac electrophysiology service on May 23, 2017. I agree with the history, physical and the assessment plans as outlined above. inTony cohen MD - 05/22/2017 0850 EDT Cardiology Progress note Service Date: 05/22/2017 Admit Date: 05/20/2017 23:34 Reason for Admission: 66 y.o. male admitted with a chief complaint of cough, orthopnea and now with a principal diagnosis of pericardial effusion. Events/ Procedures in the last 24 Hours: Pericardiocentesis 05/21 PM, hypotensive to 80s-110s overnight but only when sleeping. Subjective/Objective Subjective Mr. Mera reports persistent cough this morning and some pain with coughing, but otherwise that theprocedure went well. He denies nausea, vomiting or diarrhea, no fever or chills. His orthopnea has improved since the procedure. Review of Systems Pertinent items are noted in Subjective/HPI Objective Vital Signs Patient Vitals for the past 8 hrs: BP Heart Rate Resp Temp SpO2 O2 Device 05/22/17 0410 98/68 105 BPM 16 37.1 ??C (98.8 ??F) 97 % None 05/22/17 0330 110/72 110 BPM - - - - 05/22/17 0310 99/67 109 BPM - - - - 05/22/17 0300 107/71 107 BPM - - - - 05/22/17 0250 103/67 99 BPM - - - - 05/22/17 0240 98/63 96 BPM - - - - 05/22/17 0230 (!) 107/92 96 BPM - - - - 05/22/17 0200 94/72 98 BPM - - - - 05/22/17 0150 107/68 96 BPM - - - - 05/22/17 0140 106/66 94 BPM - - - - 05/22/17 0130 (!) 88/69 97 BPM - - - - 05/22/17 0120 95/63 97 BPM - - - - 05/22/17 0110 91/66 101 BPM - - - - 05/22/17 0100 93/62 110 BPM - - - - Weight: Patient Vitals for the past 8 hrs: Weight 05/22/17 0207 (!) 110.4 kg (243 lb 6.2 oz) Intake/Output Summary (Last 24 hours) at 05/22/17 0850 Last data filed at 05/21/17 2230 Gross per 24 hour Intake 1250 ml Output 2050 ml Net -800 ml Physical Exam GENERAL: Well nourished, well developed. No apparent acute distress. HEENT: Normocephalic. Pupils are equal, round, and reactive to light, sclera anicteric, no conjunctival injection or d/c. Moist mucous membranes. No nasal d/c. JVD improved. Bulbous nose RESPIRATORY: Normal work of breathing. Good aeration. Wheezing throughout lung boudreaux but no crackles appreciated CARDIAC: Regular rate and rhythm. Normal S1, S2. Pericardial drain with 400 cc serosanguinous fluid.PPM site erythematous, tender, no fluctuance ABDOMEN: Soft. Non-tender and non-distended. No masses. + bowel sounds EXTREMITIES: Warm, well perfused, radial and pedal pulses intact. 3+ pitting edema to knees MSK: Normal bulk and tone. 5/5 directional survey drafter strength SKIN: No lesions, bruises, or rashes noted. NEURO: Awake, alert, and moves all extremities : No coleman Is PICC or central line present? No, PICC/Central line not present. Medications Reviewed: No changes Labs Reviewed: Results notable for Na 117 this AM. CBC: Recent Labs 05/21/17 0557 05/22/17 0409 WBC 6.90 10.75* HGB 10.9* 12.2* HCT 29.7* 34.1* MCV 91 92 PLT 266 294 BMP: Recent Labs 05/20/17 2240 05/21/17 0557 05/21/17200705/22/17 0023 05/22/17 0409 CREATININE 0.44* -- 0.43* -- -- -- 0.56* BUN 6* -- 5* -- -- -- 11 NA 116* < > 117* < > 121* 120* 122* K 3.6 < > 3.5 < > 3.7 3.4* 4.0 CL 74* < > 76* < > 79* 83* 84* CO2 32 < > 31 < > 32 31 29 CALCIUM 8.7 -- -- -- -- -- -- MG -- -- 1.8 -- -- -- 2.1 < > = values in this interval not displayed. Coags: Recent Labs 05/21/1757 PROTIME 16.3* INR 1.4* LFTs: Recent Labs 05/21/1757 ALT 39 AST 33 ALKPHOS 81 TBIL 0.6 Cardiac Biomarkers: No results for input(s): TROPONINI in the last 72 hours. Lipids: No results for input(s): CHOL, TRIG, HDL, LDLBASE, CHOLHDL in the last 72 hours. Non-Invasive Findings last 24 hours: Findings CXR: pacer leads placed appropriately Telemetry: yes, paced rhythm ECG: Unchanged from prior, paced rhythm Does the patient have active heart failure? yes, acute on chronic, diastolic Assessment/Plan Assessment/Plan 66 y.o. male patient with history significant for recent hospitalization for complete heart block s/p PPM insertion on 05/03 who presents with worsening cough, found to have a large pericardial effusion and severe hyponatremia, now improving s/p pericardiocentesis and pacer lead adjustment. Pericardial effusion: Most likely related to recent PPM insertion, Lyme AB, TSH negative at last admission. S/p pericardiocentesis and pacer lead adjustment 05/21 PM - Vitals q4h - Tele - Pericardial drain- 400 cc output overnight. Pending output tomorrow may clamp and echo - CTM PPM site erythema, Bcx x 2 - Repeat Cxr for pacer lead placement this AM ?? Severe hyponatremia: 134 on 05/03 when discharged, but now with Na of 116 on admission to 117, 05/21, now 122 s/p pericardiocentesis. Hypervolemic hyponatremia in setting of heart failure and pericardial effusion. - Nephrology consult, recs: -1.5 L fluid restriction -Starting 10 mg Torsemide PO today - Lytes Q6H ?? HTN: Previously on lisinopril, initially hypertensive, but now normo-hypotensive. 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 Chronic diastolic heart failure: currently volume overloaded. Needs diuresis, cautious in setting ofnormotension. - Holding Lasix/chlorthalidone - Torsemide 10 mg PO as aobve - Strict I&O - 1.5 L fluid restriction as above - Daily weights - Daily BUN, Cr VTE Prophylaxis Held d/t bloody pericentesis drain Discharge Plan Uncertain at this time Jayne Landry M.D., PGY-1 Internal Medicine Resident Pager [phone] 05/22/2017 8:50 Attestation statement: I saw and examined the patient with the resident/fellow. I agree with the findings and plan of care documented in the resident's/fellow's note. Desi Singh RN - 05/21/2017 1312 EDT Initial Case Management/Social Work Assessment and Discharge Plan/Readmission Risk Assessment REASON FOR ADMISSION: Pericardial Effusion/hyponatremia Patient understands reason for admission: PATIENT CONTACT INFO VERIFIED: Yes PATIENT ADDRESS VERIFIED: Yes LIVING ARRANGEMENTS AND ACCESSIBILITY ISSUES: Living Arrangements: Children Levels: 1 Stairs to enter: 2 Handicap access: None Bathroom located on bedroom level?: Yes What in home social supports are available to the patient? Children Is 24/7 care available? NA ADVANCED DIRECTIVES, POA &/or COLST IN PLACE: Healthcare Directive: Yes, patient has advance directive for healthcare treatment Copy in Chart: Yes, previous copy on file @ [facility] DIRECTIVES FOR FINANCES: TRANSPORTATION: Transportation: Family CULTURAL, CHEONDOISM and/or LANGUAGE factors affecting health care/discharge planning: Spiritual/Cultural Requests: None Any factors affecting health care/discharge planning?: No Insurance in Place: Yes Medical Insurance: Yes Type of insurance: Medicare, Medicaid Medicare type: A, B Medicaid Type: Community Referred to patient financial services: No DISCHARGE RISK ASSESSMENT: Repeat hospitalizations/ED visits Total # selected above: Score of 1 - 2: This patient is at LOW RISK for re-hospitalization Tentative plan to address the risk of re-hospitalization for those at HIGH MODERATE RISK: Bring riskfactors to attention of team to be addressed RAPT TOOL: Age[age] Gender: Male Ambulation distance: 2 or more blocks (600ft) Gait device: None Community Services: Home health, MOW, SASH-none of one time a week Will you live with someone who will care for you?: Yes RAPT Tool Score: 11 SBIRT: SASQ (Single Alcohol Screening Question) How many times in the past year have you had 5 or more drinks in a single day?: Never How many times in the past year have you used an illegal drug or used a prescription medication for non-medical reasons?: Never Intervention in place/initiated?: No, not indicated FUNCTIONAL STATUS: Activities patient requires assistance: None Assistive Device: None COMMUNITY RESOURCES/SUPPORTS: Primary Care Provider: Katia Mccallum PCP Verified: Yes Specialists: Cardiology (Dr. Torres) Type of Home Health Services: None DME Provider: Pharmacy: [facility] - [address] - [place], [place] - [address] [facility] [id number] [facility] - [place], [place] - [address] [facility] [address] [facility] [id number] Home Health: Other: POST HOSPITAL TRANSITION PLAN: Plan d/c to his son, Catarina, house in [place] Desi Villatoro RN 05/21/2017 13:12 Desi Villatoro RN - 05/21/2017 0929 EDT 05/21: Met with patient. Dr. Rosenberg is at the bedside. Plan will be pericardiocentesis and reposition of pacer lead. I will follow up with patient later today. Desi Villatoro RN [id number] YTJayne Landry MD - 05/21/2017 0747 EDT Cardiology Progress note Service Date: 05/21/2017 Admit Date: 05/20/2017 23:17 Reason for Admission: 66 y.o. male admitted with a chief complaint of cough, orthopnea and now with a principal diagnosis of pericardial effusion. Events/ Procedures in the last 24 Hours: Admitted, no acute events Subjective/Objective Subjective Mr. Mera reports orthopnea but denies chest pain, pressure, or SOB when sitting up. He also reports a cough, and is not sure if his legs are swollen more so than usual. He does report sticking to a fluid restriction at home and decreased urination as a result (although he blames decreased urination on his pacemaker). He denies nausea, vomiting or diarrhea. Patient is a very poor historian and is not sure which medications he was on but only that they were recently changed.` Review of Systems Pertinent items are noted in Subjective/HPI Objective Vital Signs Patient Vitals for the past 8 hrs: BP Heart Rate Resp Temp SpO2 O2 Device 05/21/17 0015 (!) 126/94 124 BPM 16 36.6 ??C (97.9 ??F) 97 % None 05/21/17 0001 - - - - - None Weight: No data found. No intake or output data in the 24 hours ending 05/21/17 0747 Physical Exam GENERAL: Well nourished, well developed. No apparent acute distress. HEENT: Normocephalic. Pupils are equal, round, and reactive to light, sclera anicteric, no conjunctival injection or d/c. Moist mucous membranes. No nasal d/c. JVP to 10 cm RESPIRATORY: Normal work of breathing. Good aeration. Wheezing throughout lung boudreaux but no crackles appreciated CARDIAC: Distant heart sounds, regular rate and rhythm. Normal S1, S2. ABDOMEN: Soft. Non-tender and non-distended. No masses. + bowel sounds EXTREMITIES: Warm, well perfused, radial and pedal pulses intact. 3+ pitting edema to knees MSK: Normal bulk and tone. 5/5 directional survey drafter strength SKIN: No lesions, bruises, or rashes noted. NEURO: Awake, alert, and moves all extremities : No coleman Pulsus Paradoxus: SBP 120 --> 110 with inspiration Is PICC or central line present? No, PICC/Central line not present. Medications Reviewed: No changes Labs Reviewed: Results notable for Na 117 this AM. CBC: Recent Labs 05/21/17 0557 WBC 6.90 HGB 10.9* HCT 29.7* MCV 91 PLT 266 BMP: Recent Labs 05/20/17 2240 05/21/17 0328 05/21/17 0557 CREATININE 0.44* -- 0.43* BUN 6* -- 5* NA 116* 116* 117* K 3.6 3.3* 3.5 CL 74* 77* 76* CO2 32 31 31 CALCIUM 8.7 -- -- Coags: Recent Labs 05/21/17 0557 PROTIME 16.3* INR 1.4* LFTs: Recent Labs 05/21/17 0557 ALT 39 AST 33 ALKPHOS 81 TBIL 0.6 Cardiac Biomarkers: No results for input(s): TROPONINI in the last 72 hours. Lipids: No results for input(s): CHOL, TRIG, HDL, LDLBASE, CHOLHDL in the last 72 hours. Non-Invasive Findings last 24 hours: N/A Telemetry: yes, paced rhythm ECG: Unchanged from prior, paced rhythm Does the patient have active heart failure? yes, acute on chronic, diastolic Assessment/Plan Assessment/Plan 66 y.o. male patient with history significant for recent hospitalization for complete heart block s/p PPM insertion on 05/03 who presents with worsening cough, found to have a large pericardial effusion and severe hyponatremia. Pericardial effusion: Most likely related to recent PPM insertion, Lyme AB, TSH negative at last admission. Pulsus paradoxus as above. Currently HDS, SBP 100s-130s. - Vitals q4h - Tele - NPO for pericardiocentesis today - Echocardiogram today to assess for stability - EP consult - Will need PPM leads adjusted most likely ?? Severe hyponatremia: 134 on 05/03 when discharged, but now with Na of 116 improved to only 117 this AM, stable compared to OSH Na today of 116, most likely has hypervolemic hyponatremia in setting of heart failure and pericardial effusion. Urine sodium not elevated and osms relatively low, but could be altered in setting of diuretic use. - s/p 1L IVF bolus in ED - Nephrology consult - For now 1.2 L fluid restriction (is currently NPO) - No more IVF - Will need IV diuresis but will hold off in setting of pericardial effusion - Lytes Q4H ?? HTN: Previously on lisinopril, initially hypertensive, but now normotensive and in the setting of large pericardial effusion will hold lisinopril for now. 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 Chronic diastolic heart failure: currently volume overloaded. Needs diuresis after resolution of pericardial effusion. - Holding Lasix/chlorthalidone in setting of pericardial effusion - Strict I&O - 1.2 L fluid restriction as above - Daily weights - Daily BUN, Cr VTE Prophylaxis Held pending pericardiocentesis Discharge Plan Uncertain at this time Jayne Landry M.D., PGY-1 Internal Medicine Resident Pager [phone] 05/21/2017 8:01 Ester Dobbins MD - 05/21/2017 0640 EDT PATIENT CONSENT TO CARDIOVASCULAR CATHETERIZATION OR INTERVENTION: Ester Bran MD, have explained the risks and benefits of cardiac catheterization and/or intervention to the patient (or responsible green party) and have answered the patient's (or responsible green party's) questions. To the best of my knowledge, the patient (or responsible green party) has been adequately informed. The patient (or responsible green party) has consented to the interventional cardiac procedure. As part of the consent we reviewed that, like surgical procedures, interventional procedures require aggressive short term support to determine the potential benefits of the procedures. For this reason, the patient (or responsible green party) has agreed to remain FULL CODE for a minimum of 48 hours after theprocedure. Ester Dobbins MD Architectural Technician PGY-5 05/20/2017 23:30 documented in this encounter H&P Notes Maria Antonia Zimmerman MD - 05/20/2017 2241 EDT Cardiology Admission H&P Admit Date: 05/20/2017 PCP: Katia Mccallum CC: Chest pain HPI: David Mera is a 66 y.o. male who presents as a transfer for pericardial effusion in the setting of worsening cough and dyspnea. He previously has had no medical care in the past until he was last admitted here from 04/30-05/04 for exertional dyspnea found to have hypertensive urgency and asymptomatic complete heart block with a rate in the 30s. He underwent a pacemaker on 05/02/17 for complete heart block, Lyme antibody negative. During that admission he was started on amlodipine and chlorthalidone. He was doing well after discharge for about 3-4 days, but fairly quickly after discharge started to develop a cough which has been worsening ever since. He says it is productive of frothy sputum, and is associated with shortness of breath. He is a poor historian so it is difficult to get the exact timeline, but about 4-5 days ago he sought medical care, at which time he was presumed to have CHF exacerbation and was given Lasix 40 mg. At some time in the past since discharge he seemed to be switched to lisinopril, although he is unable to tell me when or why this happened. He has had lower extremityswelling since discharge but actually thinks the swelling has lessened over time. He has had no chest pain, dizziness/lightheadedness, palpitations, fevers, chills, nausea/vomiting. He is staying at his son's house and has not been out much recently. ROS: Full 10 point system obtained; pertinent positives and negatives noted in HPI Past Medical History: Complete heart block s/p PPM as above Prior to admission medications - Lisinopril 5mg daily - Furosemide 40 mg daily Past Surgical History: Reviewed, non-contributory Family History: Reviewed, mother with many heart attacks and strokes, unable to tell me ages Social History: Never smoker, 1-2 beers 1-2x/week, lives alone in [place] Allergies: Reviewed No Known Allergies Exam: General appearance: alert, cooperative, no acute distress Skin: No rashes or lesions, normal turgor Eyes: Anicteric sclerae, conjunctiva without pallor Mouth: MMM Head: Normocephalic and atraumatic Neck: Supple, symmetrical, trachea midline, JVP not elevated Lungs: Clear to auscultation bilaterally CVS: RRR, S1, S2 normal, 2/6 systolic murmur present Abdomen: soft, non-tender; positive bowel sounds; no rebound or guarding Neurologic: moving all extremities, strength and sensation equal and intact throughout Extremities: extremities warm, atraumatic, 1+ edema, 2+ DP pulses bilaterally Data review: EKG: OSH EKG showing paced rhythm, EKG here pending Labs: Reviewed BMP: Recent Labs 05/20/17 2240 NA 116* K 3.6 CL 74* CO2 32 BUN 6* CREATININE 0.44* CALCIUM 8.7 CALCCA 9.2 SERGLU 108* OSH labs significant for sodium of 116, troponin of 0.026, and BNP of 2900 Imaging/Other Studies: OSH CT chest showing pericardial effusion with normal lung parenchyma A/P: 66 y.o. male patient with history significant for recent hospitalization for complete heart block s/p PPM insertion on 05/03 who presents with worsening cough, found to have a large pericardial effusion and severe hyponatremia. Pericardial effusion: ? Related to recent PPM insertion, Lyme AB, TSH negative at last admission - Vitals q4h - Admit to telemetry - NPO at midnight for potential pericardiocentesis tomorrow - Echocardiogram tomorrow morning to assess for stability Severe hyponatremia: 134 on 05/03 when discharged, but now with Na of 116, stable compared to OSH Na today of 116, unclear etiology. Was started on chlorthalidone at last admission, also given Lasix recently, vs hypervolemic hyponatremia in setting of heart failure and pericardial effusion. - Receiving 1L IVF bolus in ED now - Sending urine sodium and osm - Repeat electrolytes after IVF, if same or worsening may need to consider hypertonic saline - If not improving, consider nephrology consult HTN: Previously on lisinopril, initially hypertensive, but now normotensive and in the setting of large pericardial effusion will hold lisinopril for now. 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 Chronic diastolic heart failure: with some edema but patient says improving, no evidence of acute exacerbation - Holding Lasix/chlorthalidone in setting of severe hyponatremia - Strict I&O - Daily weights - Daily BUN, Cr, lytes FEN: NPO then cardiac diet as tolerated Code: Full, discussed with patient DVT PPx: Held for potential procedure in AM Disposition: Pending clinical course Maria Antonia Zimmerman MD 05/20/2017 23:50 Associated attestation - Andres Luis MD - 05/22/2017 0853 EDT Attending Attestation: I have personally seen and examined David Mera, discussed the patient's management with the team, and agree with the findings and plan as outlined by Dr. Zimmerman. I performed this service on 05/21/17 Andres Luis, MDdocumented in this encounter Procedure Notes Seng Rand MD - 05/21/2017 2002 EDT Bedside Procedure Note Procedures Pericardiocentesis, Pericardial drain placement, lead extraction and replacemtn and revision No cx Well tolerated See post op orders and cardiology tab for details Seng Rand MD 05/21/2017 20:02 documented in this encounter Consult Notes Vladimir Crowe MD - 05/25/2017 1145 EDT NEPHROLOGY CONSULT PROGRESS NOTE Admit Date: 05/20/2017 Hospital Day: LOS: 4 days Date of Service: 05/25/2017 Attending Physician: Tony Rosenberg MD Reason for Consult: Hypervolemic Hyponatremia 24-hour events/Subjective: Patient on fluid restriction 1.5 L a day, complain of being thirsty, but understands the rational of limiting liquids. No headache, blurred vision, no nausea or vomiting, no unsteady gait. Sodium continues to improve. ROS: 10 point review of system is as above, otherwise negative. Current medications: Current Facility-Administered Medications: acetaminophen (TYLENOL) tablet 650 mg oral Q4H PRN chlorhexidine gluconate 2 % cloth 1 Each topical PRE-OP MULTIPLE sodium chloride 0.9 % flush 3 mL intravenous Q8H torsemide (DEMADEX) tablet 40 mg oral DAILY Objective: I+O: Intake/Output Summary (Last 24 hours) at 05/25/17 1146 Last data filed at 05/25/17 1110 Gross per 24 hour Intake 1870 ml Output 2425 ml Net -555 ml Weight: Wt Readings from Last 5 Encounters: 05/25/17 (!) 105.2 kg (231 lb 14.4 oz) 04/30/17 99.8 kg (220 lb) Physical Examination: BP 112/69 (BP Cuff Location: Right arm, Patient Position: Sitting) Pulse (!) 116 Temp 36.4 ??C (97.5 ??F) (Tympanic) Resp 18 Ht 180.3 cm (71) Wt (!) 105.2 kg (231 lb 14.4 oz) SpO2 100% BMI 32.34 kg/m2 Wt Readings from Last 3 Encounters: 05/25/17 (!) 105.2 kg (231 lb 14.4 oz) 04/30/17 99.8 kg (220 lb) BP 112/69 (BP Cuff Location: Right arm, Patient Position: Sitting) Pulse (!) 116 Temp 36.4 ??C (97.5 ??F) (Tympanic) Resp 18 Ht 180.3 cm (71) Wt (!) 105.2 kg (231 lb 14.4 oz) SpO2 100% BMI 32.34 kg/m2 General Appearance: Appears well HEENT : Unremarkable Heart: Regular rate and rhythm Lungs: Clear to auscultation Abdomen: Soft, nontender, plus bowel sounds Extremities: Minimal edema : Deferred Neuro: No focal, no asterixis Psych: Alert oriented ??3, for cytological Skin: No rashes Extracellular volume is assessed as high normal Vascular Access: A dialysis access is not present. Data Review: Reviewed in [facility]ISM, notable for the following: CBC: Lab Results Component Value Date WBC 6.99 05/25/2017 RBC 3.16 (L) 05/25/2017 HGB 10.5 (L) 05/25/2017 HCT 29.5 (L) 05/25/2017 MCV 93 05/25/2017 MCH 33.2 (H) 05/25/2017 MCHC 35.6 05/25/2017 PLT 290 05/25/2017 NEUTROABS 4.25 05/21/2017 Nephrology profile: Lab Results Component Value Date NA 127 (L) 05/25/2017 K 3.7 05/25/2017 CL 85 (L) 05/25/2017 CO2 36 (H) 05/25/2017 BUN 9 (L) 05/25/2017 CREATININE 0.54 (L) 05/25/2017 CALCIUM 8.7 05/20/2017 LABALBU 3.0 (L) 05/21/2017 Recent Labs 05/23/17 0642 05/24/17 0551 05/25/17 0559 CREATININE 0.50* 0.59* 0.54* Assessment: Hypervolemic hyponatremia, chronic in nature, worsened by CHF and pericardial effussion Hyponatremia with Na 127 ?? Recommendations : ? 1. Continue fluid restriction 1.5 L / day. Check Urine NA, K, U osmolality today 2. Continue Torsemide (40 mg/ day) as outpatient, avoid thiazide diuretics Vladimir Crowe MD [facility] [employer] [facility] [employer] [facility] 05/25/2017 11:46 Vladimir mckeon MD - 05/24/2017 1008 EDT NEPHROLOGY CONSULT PROGRESS NOTE Admit Date: 05/20/2017 Hospital Day: LOS: 3 days Date of Service: 05/24/2017 Attending Physician: Tony Rosenberg MD Reason for Consult: Hyponatremia 24-hour events/Subjective: Patient on fluid restriction 1.5 L a day, complain of being thirsty, but understands the rational of limiting liquids. No headache, blurred vision, no nausea or vomiting, no unsteady gait. Sodium continues to improve. ROS: 10 point review of system is as above, otherwise negative. Current medications: Current Facility-Administered Medications: acetaminophen (TYLENOL) tablet 650 mg oral Q4H PRN chlorhexidine gluconate 2 % cloth 1 Each topical PRE-OP MULTIPLE ketOROLAC (TORADOL) injection 15 mg intravenous Q6H sodium chloride 0.9 % flush 3 mL intravenous Q8H torsemide (DEMADEX) tablet 40 mg oral DAILY Objective: I+O: Intake/Output Summary (Last 24 hours) at 05/24/17 1008 Last data filed at 05/24/17 0600 Gross per 24 hour Intake 1160 ml Output 2775 ml Net -1615 ml Weight: Wt Readings from Last 5 Encounters: 05/24/17 (!) 108.1 kg (238 lb 6.4 oz) 04/30/17 99.8 kg (220 lb) Physical Examination: BP 92/70 (BP Cuff Location: Left arm, Patient Position: Sitting) Pulse (!) 116 Temp 37.3 ??C (99.1 ??F) (Tympanic) Resp 18 Ht 180.3 cm (71) Wt (!) 108.1 kg (238 lb 6.4 oz) Comment: bed SpO2 97% BMI 33.25 kg/m2 Wt Readings from Last 3 Encounters: 05/24/17 (!) 108.1 kg (238 lb 6.4 oz) 04/30/17 99.8 kg (220 lb) BP 92/70 (BP Cuff Location: Left arm, Patient Position: Sitting) Pulse (!) 116 Temp 37.3 ??C (99.1 ??F) (Tympanic) Resp 18 Ht 180.3 cm (71) Wt (!) 108.1 kg (238 lb 6.4 oz) Comment: bed SpO2 97% BMI 33.25 kg/m2 General Appearance: Appears well HEENT : Unremarkable Heart: Regular rate and rhythm Lungs: Clear to auscultation Abdomen: Soft, nontender, plus bowel sounds Extremities: Minimal edema : Deferred Neuro: No focal, no asterixis Psych: Alert oriented ??3, for cytological Skin: No rashes Extracellular volume is assessed as high normal Vascular Access: A dialysis access is not present. Data Review: Reviewed in PRISM, notable for the following: CBC: Lab Results Component Value Date WBC 7.61 05/24/2017 RBC 3.35 (L) 05/24/2017 HGB 11.0 (L) 05/24/2017 HCT 31.4 (L) 05/24/2017 MCV 94 05/24/2017 MCH 32.8 05/24/2017 MCHC 35.0 05/24/2017 PLT 273 05/24/2017 NEUTROABS 4.25 05/21/2017 Nephrology profile: Lab Results Component Value Date NA 128 (L) 05/24/2017 K 3.9 05/24/2017 CL 83 (L) 05/24/2017 CO2 36 (H) 05/24/2017 BUN 9 (L) 05/24/2017 CREATININE 0.59 (L) 05/24/2017 CALCIUM 8.7 05/20/2017 LABALBU 3.0 (L) 05/21/2017 Recent Labs 05/22/17 0409 05/23/17 0642 05/24/17 0551 CREATININE 0.56* 0.50* 0.59* Assessment: Hypervolemic hyponatremia, chronic in nature, worsened by CHF and pericardial effussion Hyponatremia now improved to 128 ?? Recommendations : ? 1. Continue fluid restriction 1.5 L / day 2. Use lower dose of Torsemide (10 - 20 mg/ day) as outpatient, avoid thiazide diuretics Shannon Bang MD Nephrology fellow 05/24/2017 10:08 Attestation statement: I saw and examined the patient with the nephrology fellow, Dr Bang. My interaction with the patient included a 10 point review of systems with positives in HPI and theremainder negative, review of current medications, laboratory and imaging studies, and communicationwith the patient, family, and primary care givers. I agree with the findings and plan of care as documented in the note below and I have edited the assessment and plan. Vladimir Crowe MD [facility] [employer] 05/24/2017 12:32 Elliot Stubbs MD - 05/23/2017 1520 EDT NEPHROLOGY CONSULT NOTE Admit Date: 05/20/2017 Hospital Day: LOS: 2 days Date of Service: 05/23/2017 Attending Physician: Tony Rosenberg MD Reason for Consult: Hyponatremia Assessment: Hypervolemic hyponatremia, chronic in nature, worsened by CHF and pericardial effussion Hyponatremia now improved to 126 Recommendations : 1. Continue fluid restriction 1.5 L / day 2. Use lower dose of Torsemide (10 - 20 mg/ day) as outpatient, avoid thiazide diuretics HPI: He feels better today, no CP/SOB, no nausea/vomiting.. ROS: 10 point review of system is as above, otherwise negative. PMH PSH No past medical history on file. No past surgical history on file. Social History Family history Social History Substance Use Topics ??? Smoking status: Never Smoker ??? Smokeless tobacco: Never Used ??? Alcohol use Not on file No family history on file. Medications No current facility-administered medications on file prior to encounter. No current outpatient prescriptions on file prior to encounter. Current medications: Current Facility-Administered Medications: acetaminophen (TYLENOL) tablet 650 mg oral Q4H PRN chlorhexidine gluconate 2 % cloth 1 Each topical PRE-OP MULTIPLE ketOROLAC (TORADOL) injection 15 mg intravenous Q6H sodium chloride 0.9 % flush 3 mL intravenous Q8H torsemide (DEMADEX) tablet 40 mg oral BID (BREAKFAST/DINNER) Allergies No Known Allergies Objective: I+O: Intake/Output Summary (Last 24 hours) at 05/23/17 1520 Last data filed at 05/23/17 1408 Gross per 24 hour Intake 1875 ml Output 1775 ml Net 100 ml Weight: Wt Readings from Last 5 Encounters: 05/23/17 (!) 111.2 kg (245 lb 1.6 oz) 04/30/17 99.8 kg (220 lb) Physical Examination: BP 116/79 (BP Cuff Location: Right arm, Patient Position: Semi fowlers) Pulse 82 Temp 36.4 ??C (97.5 ??F) (Tympanic) Resp 18 Ht 180.3 cm (71) Wt (!) 111.2 kg (245 lb 1.6 oz) Comment: bed SpO2 95% BMI 34.18 kg/m2 Wt Readings from Last 3 Encounters: 05/23/17 (!) 111.2 kg (245 lb 1.6 oz) 04/30/17 99.8 kg (220 lb) General Appearance: No Acute Distress HEENT : Negative Heart: Regular Rate/Rhythm Lungs: Clear to Auscultation Abdomen: Soft Extremities: + 1 Edema : Deferred Neuro: No Tremors Psych: Awake, Alert, Oriented to Person, Place and Time Skin: normal coloration and turgor, no rashes, no suspicious skin lesions noted. Extracellular volume is assessed as high Vascular Access: A dialysis access is not present. Data Review: Reviewed in PRISM, notable for the following: CBC: Lab Results Component Value Date WBC 8.96 05/23/2017 RBC 3.30 (L) 05/23/2017 HGB 11.0 (L) 05/23/2017 HCT 30.8 (L) 05/23/2017 MCV 93 05/23/2017 MCH 33.3 (H) 05/23/2017 MCHC 35.7 05/23/2017 PLT 254 05/23/2017 NEUTROABS 4.25 05/21/2017 Nephrology profile: Lab Results Component Value Date NA 126 (L) 05/23/2017 K 3.7 05/23/2017 CL 81 (L) 05/23/2017 CO2 36 (H) 05/23/2017 BUN 10 05/23/2017 CREATININE 0.50 (L) 05/23/2017 CALCIUM 8.7 05/20/2017 LABALBU 3.0 (L) 05/21/2017 Iron: No results found for: IRON, FERRITIN, TRANSFERRIN, TIBC Urine Protein: No results found for: PROTEINUA, PROTEINUR Urine Creatine: Lab Results Component Value Date UCREA 26.2 05/21/2017 Recent Labs 05/20/17 2240 05/21/17 0557 05/22/17 0409 05/23/17 0642 CREATININE 0.44* 0.43* 0.56* 0.50* Baseline creatinine: see above Stable weight: Procedures/Studies during this hospitalization: ARTUR Fairchild MD 05/23/2017 15:20 YTElliot Fairchild MD - 05/21/2017 1327 EDT NEPHROLOGY CONSULT NOTE Admit Date: 05/20/2017 Hospital Day: LOS: 0 days Date of Service: 05/21/2017 Attending Physician: Andres Luis MD Reason for Consult: Hyponatremia Assessment: Hypervolemic hyponatremia, chronic in nature, r/o nephrotic syndrome, HFpEF Recommendations: 1. Check urinalysis,urine protein and urine creatinine with same sample. 2. Check TSH and T 4 to r/o hypothyroidism. 3. Fluid restriction 1.5 L / day 4. Start Torsemide 10 mg/ day, avoid thiazide diuretics HPI: David Mera is a 66 y.o. male who presents as a transfer for pericardial effusion in the setting of worsening cough and dyspnea. He previously has had no medical care in the past until he was last admitted here from 04/30-05/04 for exertional dyspnea found to have hypertensive urgency and asymptomatic complete heart block with a rate in the 30s. He underwent a pacemaker on 05/02/17 for complete heart block, Lyme antibody negative. During that admission he was started on amlodipine and chlorthalidone which was changed to Furosemide for presumed CHF but patient does not recall any details. He has had no chest pain, dizziness/lightheadedness, palpitations, fevers, chills, nausea/vomiting. He is staying at his son's house and has not been out much recently. A ECHO done yesterday does not show any tamponade like pericardial effusion and systolic LV functionis normal. During the last admission his serum Na 134 and now on admission 116. He received evidently 1 L NS, today serum Na 117. ?? Urine osmolality 251, urine Na 18. For further details see Cardiology H&P admission note. ROS: 10 point review of system is as above, otherwise negative. PMH PSH No past medical history on file. No past surgical history on file. Social History Family history Social History Substance Use Topics ??? Smoking status: Never Smoker ??? Smokeless tobacco: Never Used ??? Alcohol use Not on file No family history on file. Medications No current facility-administered medications on file prior to encounter. No current outpatient prescriptions on file prior to encounter. Current medications: Current Facility-Administered Medications: acetaminophen (TYLENOL) tablet 650 mg oral Q4H PRN sodium chloride 0.9 % flush 3 mL intravenous Q8H Allergies No Known Allergies Objective: I+O: No intake or output data in the 24 hours ending 03/21/18 1327 Weight: Wt Readings from Last 5 Encounters: 05/21/17 (!) 110.8 kg (244 lb 4.8 oz) 04/30/17 99.8 kg (220 lb) Physical Examination: BP 108/72 (BP Cuff Location: Left arm, Patient Position: Sitting) Pulse (!) 115 Temp 36.3 ??C (97.3 ??F) (Tympanic) Resp 16 Ht 180.3 cm (71) Wt (!) 110.8 kg (244 lb 4.8 oz) SpO2 99% BMI 34.07 kg/m2 Wt Readings from Last 3 Encounters: 05/21/17 (!) 110.8 kg (244 lb 4.8 oz) 04/30/17 99.8 kg (220 lb) General Appearance: No Acute Distress HEENT : Negative Heart: Regular Rate/Rhythm Lungs: Clear to Auscultation Abdomen: Soft Extremities: + 1 Edema : Deferred Neuro: No Tremors Psych: Awake, Alert, Oriented to Person, Place and Time Skin: normal coloration and turgor, no rashes, no suspicious skin lesions noted. Extracellular volume is assessed as high Vascular Access: A dialysis access is not present. Data Review: Reviewed in PRISM, notable for the following: CBC: Lab Results Component Value Date WBC 6.90 05/21/2017 RBC 3.25 (L) 05/21/2017 HGB 10.9 (L) 05/21/2017 HCT 29.7 (L) 05/21/2017 MCV 91 05/21/2017 MCH 33.5 (H) 05/21/2017 MCHC 36.7 (H) 05/21/2017 PLT 266 05/21/2017 NEUTROABS 4.25 05/21/2017 Nephrology profile: Lab Results Component Value Date NA 117 (LL) 05/21/2017 K 3.7 05/21/2017 CL 77 (L) 05/21/2017 CO2 30 05/21/2017 BUN 5 (L) 05/21/2017 CREATININE 0.43 (L) 05/21/2017 CALCIUM 8.7 05/20/2017 LABALBU 3.0 (L) 05/21/2017 Iron: No results found for: IRON, FERRITIN, TRANSFERRIN, TIBC Urine Protein: No results found for: PROTEINUA, PROTEINUR Urine Creatine: Lab Results Component Value Date UCREA 43.1 05/20/2017 Recent Labs 05/20/17 2240 05/21/17 0557 CREATININE 0.44* 0.43* Baseline creatinine: see above Stable weight: Procedures/Studies during this hospitalization: ARTUR Fairchild MD 05/21/2017 13:27 documented in this encounter ED Notes Freddy Elizalde RN - 05/20/2017 2355 EDT ORDERS RECEIVED, NS UP INFUSING, URINE SAMPLE COLLECTED, SENT TO LAB, WAITING RESULTS Seng preston - 05/20/2017 2317 EDT Seng Bran, notified Dr. KIM of SODIUM 116 on 05/20/2017 at 23:17. Freddy Gabriel RN - 05/20/2017 2257 EDT REPORT RECEIVED FROM LILLIE WINSTON, WILL ASSUME CARE OF PT AT THIS TIME. PT IN ER ROOM 8, ON VP SALES, NIBP, AND SPO2, ASSESSMENT NOTED, Tony Palma - 05/20/20177 EDT Blood drawn via saline lock per protocol, tiger tube(s) sent to lab per order. Laly Kim MD - 05/20/20174 EDT DOS: 05/20/2017 Chief Complaint Patient presents with ??? Chest Pain Patient arrives as transfer from [facility] for pleuritic chest pain and new diagnosis CHF after pacemaker placement at [facility] two weeks ago. Dyspnea with exertion, breath sounds course crackles.Alert and oriented. HPI HPI Comments: I, Deana Otilia, am scribing for Laly Kim, * while he/she is personally performing the service. Deana Hernándezsharla 05/20/2017 22:25 David Mera is a 66 y.o. male with a history of heart block AV third degree, HTN, acute on chronicCHF, who presents as a transfer from [place] with pericardial effusion. Pt had pacemaker placed 10 days ago. He reports that he developed a persistent cough for the past 7 days. Pt denies weakness, palp itations, abdominal pain, chest pain, or SOB. Per records at OSH: Chest CT scan which revealed a large pericardial effusion. Small bilateral pleural effusions. Cardiomegaly.EKG with paced rhythm. The history is provided by the patient and medical records. Review of Systems Review of Systems Constitutional: Negative for chills and fever. HENT: Positive for congestion and rhinorrhea. Negative for sore throat and trouble swallowing. Eyes: Negative. Respiratory: Positive for cough. Negative for chest tightness and shortness of breath. Cardiovascular: Negative. Negative for chest pain, palpitations and leg swelling. Gastrointestinal: Negative for abdominal distention and abdominal pain. Endocrine: Negative. Genitourinary: Negative. Negative for dysuria and flank pain. Musculoskeletal: Negative. Negative for arthralgias. Skin: Negative. Negative for color change and rash. Allergic/Immunologic: Negative. Negative for immunocompromised state. Neurological: Negative. Negative for dizziness, weakness and headaches. Hematological: Negative. Negative for adenopathy. Does not bruise/bleed easily. Psychiatric/Behavioral: Negative. Negative for confusion. All other systems reviewed and are negative. No Known Allergies Vital Signs Vitals Reassessment?: Yes Temp: 36.6 ??C (97.9 ??F) Temp src: Tympanic Pulse: (!) 115 Heart Rate: 124 BPM Cardiac Rhythm: Paced rhythm Resp: 16 SpO2: 97 % BP: (!) 126/94 BP MAP: 89 mm Hg BP Device: BP Machine Patient Position: Sitting BP Cuff Location: Right arm O2 Device: None (Room air) Physical Exam Constitutional: He is oriented to person, place, and time. He appears well- developed and well-nourished. No distress. HENT: Head: Normocephalic and atraumatic. Eyes: Conjunctivae and EOM are normal. Pupils are equal, round, and reactive to light. Right eye exhibits no discharge. Left eye exhibits no discharge. Neck: Normal range of motion. Neck supple. No tracheal deviation present. Cardiovascular: Normal rate, regular rhythm, normal heart sounds and intact distal pulses. No murmur heard. Pulmonary/Chest: Effort normal and breath sounds normal. No respiratory distress. He has no wheezes. Abdominal: Soft. Bowel sounds are normal. He exhibits no distension. There is no tenderness. Musculoskeletal: Normal range of motion. He exhibits no edema. Neurological: He is alert and oriented to person, place, and time. He exhibits normal muscle tone. Skin: Skin is warm and dry. No rash noted. Psychiatric: He has a normal mood and affect. Nursing note and vitals reviewed. RESULTS Rhythm Strip Interpretation: NSR. Narrow QRS complexes. No ectopy. Conduction normal. Normal ST segments and T waves. The study has been interpreted independently and contemporaneously by me. The rhythm strip appears to be a good tracing. Attending wax molder not available for acute interpretation. Radiology orders: POCT US CARDIAC I performed a bedside cardiac US . Findings consistent with large pericardial effusion with no evidence of tamponade IVC with respiratory variation. Images obtained, reviewed, and interpreted independently by myself. Please see formal report in the PRISM Images section. Images saved in PACS. ED Lab Results Labs Reviewed BASIC METABOLIC PANEL (BMP) - Abnormal Result Value Status Sodium 116 (*) Final Potassium 3.6 Final Chloride 74 (*) Final CO2 32 Final BUN 6 (*) Final Creatinine 0.44 (*) Final GFR, Calculated 119 Final Calcium 8.7 Final Calculated Calcium 9.2 Final Glucose, Serum 108 (*) Final Fasting? Unknown Final INPATIENT ADD-ON Tests to be added URINE OSM Final Number for problems Not Given Final Accession number [id number] Final CREATININE, URINE RANDOM SODIUM, URINE RANDOM OSMOLALITY, URINE Patient had labs that were reviewed independently by myself, significant for sodium of 116, hemoglobin of 11.5, CO2 35, [place] 0.026, BNP of 2900, urine creatinine of 43, and urine sodium of 18. Relevant Data Procedures ED COURSE A medical screening exam was performed. The patient is a 66 y.o. male, who presents with pericardialeffusion. Pt had pacemaker placed 10 days ago. He reports that he developed a cough 7 days ago, which has been worsening. Pt denies weakness, palpitations, abdominal pain, chest pain, or SOB. Exam unrem arkable. Labs diagnostic for hyponatremia. Spot urine creatinine = 43, spot urine sodium = 18. Findings suggestive of hypovolemic etiology. Bedside ultrasound diagnostic for a large pericardial effusion without evidence of tamponade physiology. hydrated with 1 L NS bolus. Evaluated in the ED by the car diology fellow. ASSESSMENT AND PLAN Final diagnoses: Hyponatremia Pericardial effusion DISPOSITION: Admitted Discussed case with cardiology resident/fellow (). Not evaluated by admitting attending in ED. Admitted to telemetry for further evaluation and definitive management. Condition on admission: Serious. Pain level at time of admission: 0 (). PCP: Katia Mccallum [facility] Number of Diagnoses or Management Options Hyponatremia: new, needed workup Pericardial effusion: new, needed workup Amount and/or Complexity of Data Reviewed Clinical lab tests: ordered and reviewed Tests in the radiology section of CPT??: ordered and reviewed Tests in the medicine section of CPT??: ordered and reviewed Discussion of test results with the performing providers: no Decide to obtain previous medical records or to obtain history from someone other than the patient: yes Obtain history from someone other than the patient: yes Review and summarize past medical records: yes Discuss the patient with other providers: yes Independent visualization of images, tracings, or specimens: yes Risk of Complications, Morbidity, and/or Mortality Presenting problems: high Diagnostic procedures: high Management options: high General comments: 5 Patient Progress Patient progress: improved 05/21/2017 1:39 No flowsheet data found. This documentation is recorded by Deana Bingham acting as Scribe under the direction and presence ofLaly Kim, *. Laly Kim, *: I personally performed the services recorded by the scribe in my presence. I confirm the scribe's documentation has been reviewed by me to accurately and completely record mywork, treatment, procedures, and medical decision making. documented in this encounter Miscellaneous Notes Plan of Care - Rupert Earl RN - 05/27/2017 1357 EDT Problem: Daily Care Plan Goals Goal: Care Plan Documentation Outcome: Completed Date Met: 05/27/17 05/27/17 0819 Care Plan Focus Area of Focus Discharge Plan Goal This Shift Discharge teaching Nursing Discharge Note D: Patient noted with discharge orders to: home with son. A: Prescriptions faxed to pharmacy. Reviewed discharge instructions and prescriptions with Patient IV d/c'd. Belongings collected and sent home with patient. R: Patient and Family verbalized understanding of discharge instructions and denied further questions. Rupert Earl RN 05/27/2017 13:56 lan of [place] - Desi Villatoro RN - 05/27/2017 1024 EDT 05/27/17 1023 Medicare IM Notice: IM notice status Patient received notification verbally and in writing while in hospital. IM notice given at discharge? Yes lan of [place] - Rupert Earl RN - 05/26/2017 1332 EDT Problem: Daily Care Plan Goals Goal: Care Plan Documentation Outcome: Ongoing 05/26/17 0829 05/26/17 1059 Care Plan Focus Area of Focus Circulatory Status -- Goal This Shift -- VSS Data: Assumed care at 07:00. Pt 100% V paced, room air, reporting increased SOB this am. Continuing to diurese. Action: Urine & sputum samples collected. Flu swab sent. Continuing to educate & encourage acapella respiratory treatment. Bedside echo & CXR today Response: Pt resting in recliner most of the day. Declines pain but continues to endorse SOB. Rupert Earl RN 05/26/2017 13:28 lan of Jaspal Arredondo - 05/26/2017 1111 EDT Problem: Daily Care Plan Goals Goal: Care Plan Documentation Outcome: Ongoing 05/26/17 0829 05/26/17 1059 Care Plan Focus Area of Focus Circulatory Status -- Goal This Shift -- VSS Data: Assumed care of this pt, assessments completed. Bilateral stomach tenderness upon palpation. Productive cough w/ bilateral diminished lung sounds. +1 pitting bilateral LE edema. Blood pressure (!) 117/91, pulse 80, temperature 36.6 ??C (97.9 ??F), temperature source Tympanic, resp. rate 16, height 180.3 cm (71), weight (!) 102.8 kg (226 lb 9.6 oz), SpO2 97 %. Action: Elevated legs in chair w/ TEDS compression applied, educated pt on importance of using respiratory acapella and ambulation, documented strict I & O. Response: Tolerated acapella poorly w/ little interest in self administration. Continue to monitor swelling, I & O, and lung sounds. Jaspal Grossman 05/26/2017 10:59 lan of Care - Omayra Farley RN - 05/26/2017 0552 EDT Problem: Daily Care Plan Goals Goal: Care Plan Documentation Data: assumed care of patient at 1900. Pt admitted with cough/SOB, pericardial effusion with drain, discontinued 05/23. Pt denies SOB/pain. VSS. Tele - V paced. Hyponatremia on admission - 116, now 130. Action: assessment as charted. Fluid restriction of 1500cc/day. Strict I & Os. Pt voiding in urinal for accurate output. Response: pt resting well overnight. Lytes q 12 hour to monitor Na. Omayra Farley RN 05/26/2017 5:49 lan of Care - Rupert Earl RN - 05/25/2017 1452 EDT Problem: Daily Care Plan Goals Goal: Care Plan Documentation Outcome: Ongoing 05/25/17 0755 Care Plan Focus Area of Focus GI//Elimination Goal This Shift Adequate diuresing Data: Assumed care of pt at 07:00. Pt admitted for hyponatremia & pericardial effusion. S/P pericardial tap, drain placement & now removal. Drain site C/D/I. 100% V paced, room air, productive cough. Torsemide 40mg BID. 1500 cc fluid restriction. Action: Urine osmolality & electrolytes sample sent today, educating on fluid restriction & s/s of fluid overload. Tylenol for sharp pain with some movements & use of acapella resp. treatment Response: Pt resting throughout the day, intermittent pain in left outer chest wall, MD notified. Adhering to care plan & fluid restriction. Will continue to monitor. Rupert Earl RN 05/25/2017 14:36 lan of Care - Sigrid Gordon, TISH - 05/25/2017 05 EDT Problem: Daily Care Plan Goals Goal: Care Plan Documentation 05/24/17 2030 Care Plan Focus Area of Focus Circulatory Status Goal This Shift d/c Data: Assumed care of pt at 1900. Admitted for pericardial effusion s/p pericardiocentesis. A/Ox3. Endorses DOBBS, productive cough, and pain with deep breathing. SBP in the 90s, 100% V-paced on tele with HR In the 110s other VSS on RA. ?? Action: VS and assessment documented in flowsheets. Meds administered as ordered, see eMAR. Educatedpatient about IS use. Ambulated pt in hallway. Monitored I&Os. ?? Response: Pt up in chair. States he is feeling better. Encouraged a good night's sleep. Pt sleeping will ctm. Sigrid Gordon RN 05/25/2017 5:26 lan of Care - Cici Tapia RN - 05/24/2017 0180 EDT Problem: Daily Care Plan Goals Goal: Care Plan Documentation 05/24/17 1510 Care Plan Focus Area of Focus Circulatory Status BP 112/88 (BP Cuff Location: Right arm, Patient Position: Sitting) Pulse (!) 116 Temp 36.8 ??C (98.2 ??F) (Tympanic) Resp 18 Ht 180.3 cm (71) Wt (!) 108.1 kg (238 lb 6.4 oz) Comment: bed SpO2 99% BMI 33.25 kg/m2 Data: Assumed care of pt at 0700. A+Ox3, independent. Admitted for SOB 04/04 to pericardial effusion. Pericardial drain removed 05/23, site is c/d/i. PPM lead revision also 05/23, site is c/d/i and ecchymotic.+CSMT's. Denies CP, SOB or dizziness. Endorses DOBBS and pain w/coughing. Action: Assessment as documented in flow sheet and medications given per MAR. Continued to educate on need for fluid restriction. Response: VS remain stable, V paced on tele. Denies complaints will continue to monitor and assess per protocol. Cici Tapia RN 05/24/2017 17:33 lan of Care - Meena Lugo RN - 05/24/2017 0049 EDT Problem: Daily Care Plan Goals Goal: Care Plan Documentation Outcome: Ongoing 05/23/17 2311 Care Plan Focus Area of Focus Circulatory Status Goal This Shift VSS Data: Assumed care of pt at 1900. Admitted for pericardial effusion s/p pericardiocentesis. A/Ox3. Endorses DOBBS, productive cough, and pain with deep breathing. SBP in the 90s, 100% V-paced on tele with HR In the 110s other VSS on RA. Action: VS and assessment documented in flowsheets. Meds administered as ordered, see eMAR. Educatedpatient about IS use. Ambulated pt in hallway. Monitored I&Os. Response: Pt refusing to use IS. Tolerated ambulation well: O2 sat 91-94 on RA, P: 80-100 bpm duringambulation. Pt states he's feeling good. Denies further needs at this time. Will continue to monitor. MEENA LUGO RN 05/24/2017 0:43 lan of Care - Pierre Serrano RN - 05/23/2017 1834 EDT Problem: Daily Care Plan Goals Goal: Care Plan Documentation Outcome: Ongoing 05/23/17 1656 Care Plan Focus Area of Focus Mobility Goal This Shift Patient will ambulate Data: - Assumed care of patient ~ 1530. Plan for patient to ambulate in hallway to assess patient's symptoms following drain removal and small re accumulation of effusion. Patient denies SOB at rest. Drain site clean dry and intact. Action: - Unable to ambulate with patient so far this shift due to time constraints. Monitored drainsite. Monitored for SOB. Response: - Patient remains free of SOB. Drain site remains clean dry and intact. Will continue to monitor and ambulate with patient if time allows. Pierre Serrano RN 05/23/2017 18:30 lan of Care - Irena Restrepo - 05/23/2017 0954 EDT Problem: Daily Care Plan Goals Goal: Care Plan Documentation Outcome: Ongoing 05/23/17 0946 Care Plan Focus Area of Focus Mobility Patient will ambulate 100 ft in hallway Data: 66 year old male - Admitted for pericardial effusion s/p pericardiocentesis. Pericardial chesttube drain removed at 0800. Rates pain 0 on a numerical 0-10 scale. OOB independently to bathroom, dyspnea on exertion - 02 97% RA. Continues on fluid restrictions of 1500 mL. Action: Gauze/Tegaderm dry and intact to chest laceration. Mobility encouraged in hallway. Educationprovided about the importance of using IS. 345 mL intake on this students time. Response: OOB to bathroom x2. Patient paced in bedroom 20 ft. Irena Restrepo 05/23/2017 9:47 lan of Care - Meena Lugo RN - 05/23/2017 0053 EDT Problem: Daily Care Plan Goals Goal: Care Plan Documentation Outcome: Ongoing 05/22/17 2306 Care Plan Focus Area of Focus Circulatory Status Goal This Shift VSS Data: Assumed care of pt at 1900. Admitted for pericardial effusion s/p pericardiocentesis. A&Ox3. C/o pain with deep breathing and coughing. Endorses DOBBS and a coarse cough. SBP in the 90s other VSS on RA. 100% V-paced on tele. Pericardial drain draining bloody fluid Action: VS and assessment documented in flowsheets. meds administered as ordered. Scheduled Toradol administered for pain. Monitored I&Os. Response: SBP in the 80s (MD aware). Pt asymptomatic. 100% V-paced with HR in the 110s (MD aware). Pt denies further needs at this time. Will continue to monitor. MEENA LUGO, TISH 05/23/2017 0:42 lan of Care - Cici Oconnell - 05/22/2017 1637 EDT Problem: Daily Care Plan Goals Goal: Care Plan Documentation Outcome: Ongoing 05/22/17 0826 Care Plan Focus Area of Focus Circulatory Status Goal This Shift vss D: pt w/ pericarditis w/ pericardial effusion, s/p pericardial drain. Drain in place with bloody drainage; 400cc at start of shift. A: C/o pain w/ cough & deep inspiration. + productive cough Left chest PPM site intact, no hematoma, dermabond in place. Cards fellow performed device check this afternoon (Dr. Chirinos) Wbc slightly elevated, bcx drawn. Tmax 99.3f. Receiving iv abx per md orders Asymptomatic hypotension this am (see vs flowsheet). bp improved throughout the day Received po Torsemide for diuresis w/ min. UOP this shift. Iv lovenox dc'd, ARSH stockings in place CXR pa/lat performed Limited echo to be performed today R: will medicate per md orders, ctm assess vs, pericardial drain output lan of [place] - Rox Valdivia, TISH - 05/21/2017 7216 EDT Problem: Daily Care Plan Goals Goal: Care Plan Documentation Data: Assumed care of pt at 1900. Pt admitted for pericardial effusion s/p PPM placement. Pt now s/ppericardiocentesis. Pericardial chest drain in place c/d/i, draining sanguinous fluid. Pt on bedrestuntil drain is removed. 100% V-paced on tele, HR 100s. BPs consistently 80s/60s, pt asymptomatic. Ptstating pain 08/10. Action: MD notified of BPs and arrived at bedside. Meds given per MAR, assessment docuemented. Response: Pt sleeping, BPs still 80s/60s, MD aware. Pt states pain is reduced. Will continue to monitor. ROX VALDIVIA RN 05/21/2017 23:24 lan of [place] - Sara Erika - 05/21/2017 1059 EDT Problem: Daily Care Plan Goals Goal: Care Plan Documentation 05/21/17 0738 Care Plan Focus Area of Focus Respiratory Goal This Shift pt will use IS 5x per hour Data: Pt is 66 yo male admitted for increasing SOB and pleuritic chest pain. Transferred from [facility]. Dx of peridcardial effusion, HTN, CHF, and hyponatremia. Pacemaker placed 2 weeks ago. Awaiting pericardial TAP post Echocardiogram. Action: Pt given IS spirometer. Explained importance of IS to help with lung expansion and prevention of atelectsis. Pt demonstrated understanding through demonstration of IS use. Needs encouragement and support. Pt walked 100 [address] in hallway. Response: Pt O2 sat 99% on RA. Post ambulation, HR was 120's and DOBBS. Pt needs HOB elevated to help with breathing difficulties. Erika Ruiz 05/21/2017 10:45 documented in this encounter Plan of Treatment Scheduled Orders Name Type Priority Associated Diagnoses Order S chedule CYTOPATHOLOGY/CYTOLO Pathology Routine One Tyrese e for 1 GY FLUID SAMPLE Occurrences starting 05/21/2017 unti l 05/21/2017 Scheduled Referrals Name Type Priority Associated Diagnoses Order S chedule AMB CONS/FOLLOW UP Outpatient Referral Routine Hyponatre gustavo Ordered: PRIMARY CARE Pericardial effu nima 05/27/2017 PHYSICIAN Heart block Acute on chronic diastolic congestive heart failure (CMS-HCC) (HCC-C MS) Acute pericarditis, unspecified type documented as of this encounter Procedures Procedure Name Priority Date/Time Associated Comments Diagnosis ECG REPORT - SCANNED 06/02/2017 8:40 EDT ECG REPORT - SCANNED 06/01/2017 12:46 EDT ECG REPORT - SCANNED 05/30/2017 11:59 EDT ECG REPORT - SCANNED 05/30/2017 11:17 EDT ECG REPORT - SCANNED 05/30/2017 11:17 EDT ECG REPORT - SCANNED 05/28/2017 10:02 EDT ECG REPORT - SCANNED 05/27/2017 13:22 EDT EKG 12-LEAD Routine 05/27/2017 7:37 Results for this EDT procedure are i n the results section. COMPLETE BLOOD COUNT Routine 05/27/2017 5:57 Resu lts for this EDT procedure are i n the results section. BUN Routine 05/27/2017 5:57 Results for this EDT procedure are i n the results section. MAGNESIUM Routine 05/27/2017 5:57 Results for this EDT procedure are i n the results section. CREATININE Routine 05/27/2017 5:57 Results for this EDT procedure are i n the results section. ELECTROLYTES Routine 05/27/2017 5:57 Results for this EDT procedure are i n the results section. AIRWAY CLEARANCE Routine 05/26/2017 21:01 THERAPY EDT NT PRO BNP Routine 05/26/2017 17:55 Results for this EDT procedure are i n the results section. ELECTROLYTES Routine 05/26/2017 17:55 Results for this EDT procedure are i n the results section. INPATIENT ADD-ON STAT 05/26/2017 15:20 Results for this EDT procedure are i n the results section. AIRWAY CLEARANCE Routine 05/26/2017 14:44 THERAPY EDT INCENTIVE SPIROMETRY RT Routine 05/26/2017 14:44 EDT INCENTIVE SPIROMETRY RT Routine 05/26/2017 14:44 EDT INCENTIVE SPIROMETRY RT Routine 05/26/2017 14:44 EDT STREPTOCOCCUS Routine 05/26/2017 14:04 Results fo r this PNEUMONIAE ANTIGEN, EDT procedur e are in URINE the results section. LEGIONELLA ANTIGEN Routine 05/26/2017 14:04 Resul ts for this DETECTION, URINE EDT procedure a re in the results section. ECG REPORT - SCANNED 05/26/2017 12:53 EDT CHEST PA AND LATERAL STAT 05/26/2017 12:30 Res ults for this EDT procedure are i n the results section. BACTERIAL Routine 05/26/2017 12:14 Results for this CULTURE/SMEAR, EDT procedure are in RESPIRATORY the results section. RESPIRATORY VIRUS Routine 05/26/2017 11:57 Result s for this DETECTION EDT procedure are i n the results section. ECHOCARDIOGRAM LIMITED Routine 05/26/2017 11:16 R esults for this EDT procedure are i n the results section. EKG 12-LEAD Routine 05/26/2017 7:29 Results for this EDT procedure are i n the results section. COMPLETE BLOOD COUNT Routine 05/26/2017 5:57 Resu lts for this EDT procedure are i n the results section. BUN Routine 05/26/2017 5:57 Results for this EDT procedure are i n the results section. MAGNESIUM Routine 05/26/2017 5:57 Results for this EDT procedure are i n the results section. CREATININE Routine 05/26/2017 5:57 Results for this EDT procedure are i n the results section. ELECTROLYTES Routine 05/26/2017 5:57 Results for this EDT procedure are i n the results section. ELECTROLYTES Routine 05/25/2017 17:58 Results for this EDT procedure are i n the results section. URINE ELECTROLYTES Routine 05/25/2017 14:29 Resul ts for this EDT procedure are i n the results section. OSMOLALITY, URINE Routine 05/25/2017 14:29 Result s for this EDT procedure are i n the results section. AIRWAY CLEARANCE Routine 05/25/2017 11:51 THERAPY EDT EKG 12-LEAD Routine 05/25/2017 7:40 Results for this EDT procedure are i n the results section. COMPLETE BLOOD COUNT Routine 05/25/2017 5:59 Resu lts for this EDT procedure are i n the results section. BUN Routine 05/25/2017 5:59 Results for this EDT procedure are i n the results section. MAGNESIUM Routine 05/25/2017 5:59 Results for this EDT procedure are i n the results section. CREATININE Routine 05/25/2017 5:59 Results for this EDT procedure are i n the results section. ELECTROLYTES Routine 05/25/2017 5:59 Results for this EDT procedure are i n the results section. ELECTROLYTES Routine 05/24/2017 18:02 Results for this EDT procedure are i n the results section. EKG 12-LEAD Routine 05/24/2017 7:22 Results for this EDT procedure are i n the results section. COMPLETE BLOOD COUNT Routine 05/24/2017 5:51 Resu lts for this EDT procedure are i n the results section. BUN Routine 05/24/2017 5:51 Results for this EDT procedure are i n the results section. MAGNESIUM Routine 05/24/2017 5:51 Results for this EDT procedure are i n the results section. CREATININE Routine 05/24/2017 5:51 Results for this EDT procedure are i n the results section. ELECTROLYTES Routine 05/24/2017 5:51 Results for this EDT procedure are i n the results section. ELECTROLYTES Routine 05/23/2017 21:40 Results for this EDT procedure are i n the results section. ECG REPORT - SCANNED 05/23/2017 15:08 EDT ELECTROLYTES Routine 05/23/2017 12:16 Results for this EDT procedure are i n the results section. ECG REPORT - SCANNED 05/23/2017 11:51 EDT ECHOCARDIOGRAM LIMITED Routine 05/23/2017 10:59 R esults for this EDT procedure are i n the results section. ECG REPORT - SCANNED 05/23/2017 10:42 EDT HEMATOCRIT, BODY FLUID Routine 05/23/2017 7:47 Re sults for this EDT procedure are i n the results section. ALBUMIN, FLUID Routine 05/23/2017 7:47 Results fo r this EDT procedure are i n the results section. ANAEROBE Routine 05/23/2017 7:47 Results for this CULTURE/SMEAR(INC. EDT procedure are in AEROBES), FLUID the results section. FUNGUS CULTURE/SMEAR Routine 05/23/2017 7:47 Resu lts for this EDT procedure are i n the results section. FLUID DIFFERENTIAL Routine 05/23/2017 7:47 Result s for this EDT procedure are i n the results section. FLUID CELL COUNT Routine 05/23/2017 7:47 Results for this EDT procedure are i n the results section. TOTAL PROTEIN, FLUID Routine 05/23/2017 7:47 Resu lts for this EDT procedure are i n the results section. LDH, FLUID Routine 05/23/2017 7:47 Results for this EDT procedure are i n the results section. GLUCOSE, FLUID Routine 05/23/2017 7:47 Results fo r this EDT procedure are i n the results section. EKG 12-LEAD Routine 05/23/2017 7:20 Results for this EDT procedure are i n the results section. COMPLETE BLOOD COUNT Routine 05/23/2017 6:42 Resu lts for this EDT procedure are i n the results section. BUN Routine 05/23/2017 6:42 Results for this EDT procedure are i n the results section. MAGNESIUM Routine 05/23/2017 6:42 Results for this EDT procedure are i n the results section. CREATININE Routine 05/23/2017 6:42 Results for this EDT procedure are i n the results section. ELECTROLYTES Routine 05/23/2017 6:42 Results for this EDT procedure are i n the results section. CYTOPATHOLOGY Routine 05/23/2017 0:00 Results for this EDT procedure are i n the results section. ELECTROLYTES Routine 05/22/2017 23:40 Results for this EDT procedure are i n the results section. ELECTROLYTES Routine 05/22/2017 18:36 Results for this EDT procedure are i n the results section. CHEST PA AND LATERAL Routine 05/22/2017 14:43 Res ults for this EDT procedure are i n the results section. ELECTROLYTES Routine 05/22/2017 12:36 Results for this EDT procedure are i n the results section. BACTERIAL CULTURE, Routine 05/22/2017 9:58 Result s for this BLOOD EDT procedure are i n the results section. BACTERIAL CULTURE, Routine 05/22/2017 9:58 Result s for this BLOOD EDT procedure are i n the results section. EKG 12-LEAD Routine 05/22/2017 8:04 Results for this EDT procedure are i n the results section. COMPLETE BLOOD COUNT Routine 05/22/2017 4:09 Resu lts for this EDT procedure are i n the results section. BUN Routine 05/22/2017 4:09 Results for this EDT procedure are i n the results section. MAGNESIUM Routine 05/22/2017 4:09 Results for this EDT procedure are i n the results section. CREATININE Routine 05/22/2017 4:09 Results for this EDT procedure are i n the results section. ELECTROLYTES Routine 05/22/2017 4:09 Results for this EDT procedure are i n the results section. ELECTROLYTES Routine 05/22/2017 0:23 Results for this EDT procedure are i n the results section. EKG 12-LEAD Routine 05/21/2017 20:29 Results for this EDT procedure are i n the results section. PORTABLE CHEST 1 VIEW Routine 05/21/2017 20:25 Re sults for this EDT procedure are i n the results section. ELECTROLYTES Routine 05/21/2017 20:08 Results for this EDT procedure are i n the results section. PERMANENT PACEMAKER Routine 05/21/2017 19:42 Resu lts for this PROCEDURE EDT procedure are i n the results section. INPATIENT ADD-ON Routine 05/21/2017 18:20 Results for this EDT procedure are i n the results section. PROTEIN, TOTAL, RANDOM, Routine 05/21/2017 18:20 Results for this URINE EDT procedure are i n the results section. CREATININE, URINE Routine 05/21/2017 18:20 Result s for this RANDOM EDT procedure are i n the results section. ECHOCARDIOGRAM LIMITED Routine 05/21/2017 18:19 R esults for this EDT procedure are i n the results section. TSH Routine 05/21/2017 14:02 Results for this EDT procedure are i n the results section. T4 FREE Routine 05/21/2017 14:02 Results for this EDT procedure are i n the results section. ELECTROLYTES Routine 05/21/2017 14:02 Results for this EDT procedure are i n the results section. ECHOCARDIOGRAM STAT 05/21/2017 10:30 Results f or this EDT procedure are i n the results section. ELECTROLYTES Routine 05/21/2017 9:55 Results for this EDT procedure are i n the results section. EKG 12-LEAD Routine 05/21/2017 7:12 Results for this EDT procedure are i n the results section. INPATIENT ADD-ON Routine 05/21/2017 6:55 Results for this EDT procedure are i n the results section. INPATIENT ADD-ON Routine 05/21/2017 6:40 Results for this EDT procedure are i n the results section. PROTIME Routine 05/21/2017 5:57 Results for this EDT procedure are i n the results section. COMPLETE BLOOD COUNT Routine 05/21/2017 5:57 Resu lts for this AND DIFFERENTIAL EDT procedure a re in the results section. HIV 1/2 ANTIGEN AND Routine 05/21/2017 5:57 Resul ts for this ANTIBODY, 4TH EDT procedure are in GENERATION the results section. BUN Routine 05/21/2017 5:57 Results for this EDT procedure are i n the results section. ALT Routine 05/21/2017 5:57 Results for this EDT procedure are i n the results section. AST Routine 05/21/2017 5:57 Results for this EDT procedure are i n the results section. ALKALINE PHOSPHATASE Routine 05/21/2017 5:57 Resu lts for this EDT procedure are i n the results section. MAGNESIUM Routine 05/21/2017 5:57 Results for this EDT procedure are i n the results section. CREATININE Routine 05/21/2017 5:57 Results for this EDT procedure are i n the results section. BILIRUBIN, TOTAL Routine 05/21/2017 5:57 Results for this EDT procedure are i n the results section. ALBUMIN Routine 05/21/2017 5:57 Results for this EDT procedure are i n the results section. ELECTROLYTES Routine 05/21/2017 5:57 Results for this EDT procedure are i n the results section. ELECTROLYTES STAT 05/21/2017 3:28 Results for this EDT procedure are i n the results section. EKG 12-LEAD STAT 05/21/2017 1:25 Results for this EDT procedure are i n the results section. INPATIENT ADD-ON Routine 05/21/2017 0:00 Results for this EDT procedure are i n the results section. SODIUM, URINE RANDOM STAT 05/20/2017 23:45 Res ults for this EDT procedure are i n the results section. CREATININE, URINE STAT 05/20/2017 23:45 Result s for this RANDOM EDT procedure are i n the results section. OSMOLALITY, URINE Routine 05/20/2017 23:45 Result s for this EDT procedure are i n the results section. POCT US CARDIAC STAT 05/20/2017 22:45 Results for this EDT procedure are i n the results section. BASIC METABOLIC PANEL STAT 05/20/2017 22:40 Re sults for this (BMP) EDT procedure are i n the results section. documented in this encounter Results EKG 12-LEAD (05/27/2017 7:37 EDT) Specimen Narrative [facility] EKG - 06/01/2017 12:4 1 EDT ? [facility] ? Test Date: ?2017-05-27 Pat Name: ? DAVID MERA ?Department: ?? [facility] [address] ? Room: ? MW531 Gender: ? M ?[place] Tour Guide: ?? [id number] : ?1950 ? Requested By: PRADIP MARIA ANTONIA Order Number: [id number] ? Reading MD: ?? PIERRE RUBIO MD ? Measurements Intervals ?[place] ? Rate: ? 69 ? P: ?23 SC: ? 175 ?QRS: ?-58 QRSD: ? 193 ?T: ?189 QT: ? 528 ? QTc: ?568 ? Interpretive Statements SINUS RHYTHM WITH ATRIAL TRACKING and VE NTRICULAR PACING Compared to ECG 05/26/2017 07:29:50 No significant changes I reviewed the tracing and have either a greed or edited the findings in this report. Electronically Signed On 12:41:22 EDT by PIERRE RUBIO MD. Procedure Note Pierre Rubio MD - 06/01/[address] [facility] Test Date: 2017-05-27 Pat Name: DAVID MERA Department: [place] [address] Room: [facility] Gender: M [employer] [place] Tour Guide: [id number] : 1950 Requested By: PRADIP MANNING Order Number: [id number] Reading MD: Irish RUBIO MD Measurements Intervals [place] Rate: 69 P: 23 SC: 175 QRS: -58 QRSD: 193 T: 189 QT: 528 QTc: 568 Interpretive Statements SINUS RHYTHM WITH ATRIAL TRACKING and VE NTRICULAR PACING Compared to ECG 05/26/2017 07:29:50 No significant changes I reviewed the tracing and have either a greed or edited the findings in this report. Electronically Signed On 12:41:22 EDT by PIERRE RUBIO MD. Performing Organization Address City/[facility] Code Phon e Number [facility] EKG (ABNORMAL) ELECTROLYTES (05/27/2017 5:57 EDT) Pathologist Sig nature Sodium 129 (L) 136 - 145 mEq/L [facility] Potassium 3.9 3.5 - 5.0 mEq/L [facility] Chloride 87 (L) 96 - 110 mEq/L [facility] CO2 33 (H) 22 - 32 mEq/L [facility] Specimen Blood specimen (specimen) - Blood Performing Organization Address City/State/ZIP Code Phon e Number [facility] [address] [place] [address] SERVICES BUN (05/27/2017 5:57 EDT) Pathologist Sig nature BUN 13 10 - 26 mg/dl [facility] Specimen Blood specimen (specimen) - Blood Performing Organization Address City/State/ZIP Code Phon e Number [facility] [address] [place] [address] SERVICES MAGNESIUM (05/27/2017 5:57 EDT) Pathologist Sig nature Magnesium 1.9 1.7 - 2.8 mg/dl [facility] Specimen Blood specimen (specimen) - Blood Performing Organization Address City/State/ZIP Code Phon e Number [facility] [address] [place] [phone] SERVICES (ABNORMAL) CREATININE (05/27/2017 5:57 EDT) Creatinine 0.63 (L) 0.66 - 1.25 [facility] mg/dl LABORATORY SERVICES GFR, Calculated 103 >60 [facility] Comment: ml/min/1.73m2 LABORATORY eGFR calculated using CKD-EPI equation for SERVICES non Americans. Multiply eGFR by 1.16 for Americans. Specimen Blood specimen (specimen) - Blood Performing Organization Address City/State/ZIP Code Phon e Number [facility] [address] [place] [address] SERVICES (ABNORMAL) HEMAGRAM (05/27/2017 5:57 EDT) Pathologist Sig nature WBC 6.74 4.0 - 10.4 K/cmm [facility] SERVICES RBC 3.43 (L) 4.36 - 5.78 M/cmm [facility] Hemoglobin 11.3 (L) 13.8 - 17.3 gm/dl [facility] HCT 32.2 (L) 39.5 - 50.2 % [facility] MCV 94 81 - 95 fl [facility] MCH 32.9 27.6 - 33.0 pg [facility] MCHC 35.1 32.8 - 36.4 gm/dl [facility] RDW-CV 11.3 <14.2 % [facility] RDW-SD 38.4 <46.0 fl [facility] PLT 308 141 - 377 K/cmm [facility] MPV 10.4 9.5 - 12.7 fl [facility] Specimen Blood specimen (specimen) - Blood Performing Organization Address [facility] Phon e Number [facility] [address] [place] [address] SERVICES (ABNORMAL) NT PRO BNP (05/26/2017 17:55 EDT) Pathologist Sig nature NT Pro BNP 2,710 (H) <300 pg/ml [facility] Comment: LABORATORY SERVICES Slight hemolysis Results may be affected due to hemolysis. Reference Range: NT-proBNP values less than 300 pg/ml have a 99% negative predictive value for excluding acute congestive heart failure. A diagnostic NT-proBNP cutoff of 900 pg/ml has been suggested in adults over 50 years of age in the absence of renal failure. A cutoff of 1200 pg/ml for patients with an eGFR <60 yields a diagnostic sensitivity and specificity of 89% and 72% for acute congestive failure. Specimen Blood specimen (specimen) - Blood Performing Organization Address [facility] Phon e Number [facility] [address] [place] [address] SERVICES (ABNORMAL) ELECTROLYTES (05/26/2017 17:55 EDT) Pathologist Sig nature Sodium 129 (L)Comment: 136 - 145 mEq/L [facility] Slight hemolysis LABORATORY SERVICES Potassium 4.0 3.5 - 5.0 mEq/L [facility] Comment: LABORATORY SERVICES Slight hemolysis Hemolysis may elevate potassium result. Chloride 84 (L)Comment: 96 - 110 mEq/L [facility] Slight hemolysis LABORATORY SERVICES CO2 35 (H)Comment: 22 - 32 mEq/L [facility] Slight hemolysis LABORATORY SERVICES Specimen Blood specimen (specimen) - Blood Performing Organization Address City/[facility]/ZIP [facility] Phon e Number [facility] [address] [place] [address] SERVICES INPATIENT ADD-ON (05/26/2017 15:20 EDT) Tests to be added BNP [facility] [place] [id number] [facility] problems LABORATORY SERVICES Accession number CALLED M5 WITH [facility] INABILITY TO LABORATORY SERVICES PERFORM ADD ON DUE TO NO SUITABLE SAMPLE [id number] JR Specimen Other Performing Organization Address City/[facility]/ZIP Code Phon e Number [facility] [address] [place] [address] SERVICES LEGIONELLA ANTIGEN DETECTION, URINE (05/26/2017 14:04 EDT) Pathologist Sig nature Result No Legionella [facility] pneumophila serogroup LABORATORY SERVICES 1 antigen detected. Specimen Other (qualifier value) - Urine Performing Organization Address City/[facility]/ZIP Code Phon e Number [facility] [address] [place] [address] SERVICES STREPTOCOCCUS PNEUMONIAE ANTIGEN, URINE (05/26/2017 14:04 EDT) Pathologist Sig nature Result No Strep pneumoniae [facility] antigen detected. LABORATORY SERVICES Specimen Other (qualifier value) - Urine Performing Organization Address City/[facility]/ZIP Code Phon e Number [facility] [address] [place] [address] SERVICES CHEST PA AND LATERAL (05/26/2017 12:30 EDT) Anatomical Region Laterality Modality Other Specimen Narrative [facility] - 05/26/2017 14:17 EDT CHEST PA AND LATERAL ??05/26/2017 12:30 PM Clinical History/Comments: Pt with subjective SOB despite improveme nt in pericardial effusion COMPARISON: Chest radiographs 05/21/[address] chest CT 05/20/2017. TECHNIQUE: Two views of the chest were performed. ? ?Dual-energy technique with reconstructions in soft tissue and bone windows was used. FINDINGS: Lines/tubes: The pericardial drain has b een removed. Soft tissues: ??A left chest wall pacer generator is present with its leads terminating in the right ventricle and right atrium. Bones: Degenerative changes are present in both AC joints, left worse than right. Cardiac and mediastinal contours: The ca rdiac silhouette is enlarged. Lungs: There has been worsening of the d ense left retrocardiac opacity. Bandlike opacities in the right lower lobe are present. ?? Pleura/diaphragms: The right pleura is a gain noted to be densely calcified. There is a moderate to large left pleural effusion. IMPRESSION: 1. ??Complete or near complete complete collapse of the left lower lobe. 2. ??Moderate to large left pleural effu nima. I have personally reviewed the images an d the above interpretation and agree with the findings. Procedure Note Pablito Ayala MD - 05/26/2017 CHEST PA AND LATERAL 05/26/2017 12:30 PM Clinical History/Comments: Pt with subjective SOB despite improveme nt in pericardial effusion COMPARISON: Chest radiographs 05/21/2017 [address] Outside chest CT 05/20/2017. TECHNIQUE: Two views of the chest were performed. D ual-energy technique with reconstructions in soft tissue and bone windows was used. FINDINGS: Lines/tubes: The pericardial drain has b een removed. Soft tissues: A left chest wall pacer ge nerator is present with its leads terminating in the right ventricle and right atrium. Bones: Degenerative changes are present in both AC joints, left worse than right. Cardiac and mediastinal contours: The ca rdiac silhouette is enlarged. Lungs: There has been worsening of the d ense left retrocardiac opacity. Bandlike opacities in the right lower lobe are present. Pleura/diaphragms: The right pleura is a gain noted to be densely calcified. There is a moderate to large left pleural effusion. IMPRESSION: 1. Complete or near complete complete co llapse of the left lower lobe. 2. Moderate to large left pleural effusi on. I have personally reviewed the images an d the above interpretation and agree with the findings. Performing Organization Address City/State/ZIP Code Phon e Number [facility] BACTERIAL CULTURE/SMEAR, RESPIRATORY (05/26/2017 12:14 EDT) Gram Smear Result [facility] Polys LABORATORY SERVICES Gram Smear Result [facility] Squamous epithelial cells LABORATORY SERVICES Gram Smear Result [facility] Mixed gram positive and gram negative organisms LABORATORY SERVICES Gram Smear Result Smear suggests contamination with saliva. ??Please submit additional specimen if clinically [facility] indicated. LABORATORY SERVICES Result See gram smear [facility] results. LABORATORY SERVICES Result Credit Issued [facility]ORAT[facility] SERVICES Specimen Other (qualifier value) - Sputum Performing Organization Address City/State/ZIP Code Phon e Number [facility] [address] [place] [address] SERVICES RESPIRATORY VIRUS DETECTION (05/26/2017 11:57 EDT) Result No RSV, Influenza A, or [facility] Influenza B detected by LABORATORY SERVIC ES PCR Result No Metapneumovirus [facility] detected by PCR. LABORATORY SERVICES Result No Parainfluenza Virus Type 1,2 or 3 detected by PCR. This assay may have decrease sensitivity [facility] for Parainfluenza Virus Type 3. LABORATOR Y SERVICES Specimen Nasopharynx Performing Organization Address City/State/ZIP Code Phon e Number [facility] [address] [place] [address] SERVICES ECHOCARDIOGRAM LIMITED (05/26/2017 11:16 EDT) Specimen Narrative [facility] - 05/26/2017 11:25 EDT *Interpreting Group:* *[facility]* [address] [place] [address] Date of study: 05/26/2017 Transthoracic Echocardiography M-mode, limited 2D, limited spectral Dop pler, and color Doppler *STUDY CONCLUSIONS* Summary: 1. Left ventricle: The cavity size was n ormal. Wall thickness was ?? normal. Systolic function was normal . Wall motion was normal; there ?? were no regional wall motion abnorma lities. 2. Right ventricle: The cavity size was normal. Systolic function was ?? normal. 3. Pericardium, extracardiac: A trivial pericardial effusion was ?? identified. *PATIENT PRESENTATION* Height: ? 180.3cm ((71in) ) S/D Pressure: 100 / 66 Weight: ? 226kg ((497.2lb) ) BSA: ?3.51m^2 Test start time: ??10:50 AM. Test stop time: ??11:15 AM. ADMITTING ?? Akash Reyes MD ATTENDING ?? Tony Rosenberg MD ORDERING ?Tony Rosenberg MD PERFORMING ??[facility], REFERRING ?? Katia Mccallum *PROCEDURE DATA* Procedure information: ??The patient was identified by two identifiers. This study was interpreted by [facility]. Pertinent images and digital data are archived for permanent storage and are available for subsequent review. ??Study status: Routine. Transthoracic echocardiography. ??M-mode, limited 2D, limited spectral Doppler, and color Doppler. A T ransthoracic Echocardiogram was performed. Scanning was performed from t he parasternal, apical, and subcostal acoustic windows. Images were obtained using an Epiq 10 cardiac ultrasound machine. Image qualit y was suboptimal. The study was technically limited due to body habitus. ??Study completion: ??The patient tolerated the procedure well. *INDICATIONS AND HISTORY* Indications: ?? Pericardial Effusion (I3 1.3). *CARDIAC ANATOMY* Left ventricle: ??The cavity size was no rmal. Wall thickness was normal. Systolic function was normal. Wall motio n was normal; there were no regional wall motion abnormalities. Right ventricle: ??The cavity size was n ormal. Systolic function was normal. Pericardium: ??A trivial pericardial eff usion was identified. I have personally reviewed the images an d have reviewed and edited the reported findings. Electronically signed by Bobby Andrade MD 05/26/2017 11:25 Procedure Note Bobby Andrade MD - 05/26/2017 *Interpreting Group:* *[facility]* [address] [place] [address] Date of study: 05/26/2017 Transthoracic Echocardiography M-mode, limited 2D, limited spectral Dop pler, and color Doppler *STUDY CONCLUSIONS* Summary: 1. Left ventricle: The cavity size was n ormal. Wall thickness was normal. Systolic function was normal. W all motion was normal; there were no regional wall motion abnormalit ies. 2. Right ventricle: The cavity size was normal. Systolic function was normal. 3. Pericardium, extracardiac: A trivial pericardial effusion was identified. *PATIENT PRESENTATION* Height: 180.3cm ((71in) ) S/D Pressure: 100 / 66 Weight: 226kg ((497.2lb) ) BSA: 3.51m^2 Test start time: 10:50 AM. Test stop time: 11:15 AM. ADMITTING Akash Reyes MD ATTENDING Tony Rosenberg MD ORDERING Tony Rosenberg MD PERFORMING [facility], Ip REFERRING Katia Mccallum *PROCEDURE DATA* Procedure information: The patient was i dentified by two identifiers. [facility]. Pertinent images and digital data are archived for permanent storage and are available for subsequent review. Study status: Routine. Transthoracic echocardiography. M-mode, limited 2D, limited spectral Doppler, and color Doppler. A T ransthoracic Echocardiogram was performed. Scanning was performed from t he parasternal, apical, and subcostal acoustic windows. Images were obtained using an Epiq 10 cardiac ultrasound machine. Image qualit y was suboptimal. The study was technically limited due to body habitus. Study completion: The patient tolerated the procedure well. *INDICATIONS AND HISTORY* Indications: Pericardial Effusion (I31.3 ). *CARDIAC ANATOMY* Left ventricle: The cavity size was norm al. Wall thickness was normal. Systolic function was normal. Wall motio n was normal; there were no regional wall motion abnormalities. Right ventricle: The cavity size was nor mal. Systolic function was normal. Pericardium: A trivial pericardial effus ion was identified. I have personally reviewed the images an d have reviewed and edited the reported findings. Electronically signed by Bobby Andrade MD 05/26/2017 11:25 Performing Organization Address City/State/ZIP Code Phon e Number [facility] EKG 12-LEAD (05/26/2017 7:29 EDT) Specimen Narrative [facility] EKG - 05/27/2017 13:1 8 EDT ? [facility] ? Test Date: ?2017-05-26 Pat Name: ? DAVID MERA ?Department: ?? [place] ? Room: ? MW531 Gender: ? M ?[place] Tour Guide: ?? [id number] : ?1950 ? Requested By: PRADIP MONET Order Number: [id number] ? Reading : ?? LALY DELA CRUZ MD ? Measurements Intervals ?[place] ? Rate: ? 73 ? P: ? SC: ? 0 ?QRS: ?-45 QRSD: ? 192 ?T: ?176 QT: ? 536 ? QTc: ?594 ? Interpretive Statements ELECTRONIC VENTRICULAR PACEMAKER ABNORMAL RHYTHM ECG Automated Interpretation. ??Provider Int erpretation to follow. Compared to ECG 05/25/2017 07:40:16 No significant changes I reviewed the tracing and have either a greed or edited the findings in this report. Electronically Signed On 8 13:18:21 EDT by LALY DELA CRUZ MD. Procedure Note Laly Dela Cruz MD - 05/27/2017 [facility] Test Date: 2017-05-26 Pat Name: DAVID MERA Department: [place] Room: [facility] Gender: M [employer] Tour Guide: [id number] : 1950 Requested By: PRADIP MANNING Order Number: [id number] Reading MDKarel DELA CRUZ MD Measurements Intervals [place] Rate: 73 P: SC: 0 QRS: -45 QRSD: 192 T: 176 QT: 536 QTc: 594 Interpretive Statements ELECTRONIC VENTRICULAR PACEMAKER ABNORMAL RHYTHM ECG Automated Interpretation. Provider Inter pretation to follow. Compared to ECG 05/25/2017 07:40:16 No significant changes I reviewed the tracing and have either a greed or edited the findings in this report. Electronically Signed On 13:18:21 EDT by LALY DELA CRUZ MD. Performing Organization Address [facility] Code [facility] EKG (ABNORMAL) ELECTROLYTES (05/26/2017 5:57 EDT) Pathologist Sig nature Sodium 128 (L) 136 - 145 mEq/L [facility] Potassium 3.7 3.5 - 5.0 mEq/L [facility] Chloride 85 (L) 96 - 110 mEq/L [facility] CO2 35 (H) 22 - 32 mEq/L [facility] Specimen Blood specimen (specimen) - Blood Performing Organization Address [facility] LABORATORY [address] [place] [address] SERVICES (ABNORMAL) BUN (05/26/2017 5:57 EDT) Pathologist Sig nature BUN 9 (L) 10 - 26 mg/dl [facility] Specimen Blood specimen (specimen) - Blood Performing Organization Address [facility] e [facility] LABORATORY [address] [place] [address] SERVICES MAGNESIUM (05/26/2017 5:57 EDT) Pathologist Sig nature Magnesium 1.8 1.7 - 2.8 mg/dl [facility]OR[facility] TORY SERVICES Specimen Blood specimen (specimen) - Blood Performing Organization Address [facility] e [facility] LABORATORY [address] [place] [address] SERVICES (ABNORMAL) CREATININE (05/26/2017 5:57 EDT) Creatinine 0.53 (L) 0.66 - 1.25 [facility] mg/dl LABORATORY SERVICES GFR, Calculated 110 >60 [facility] Comment: ml/min/1.73m2 LABORATORY eGFR calculated using CKD-EPI equation for SERVICES non Americans. Multiply eGFR by 1.16 for Americans. Specimen Blood specimen (specimen) - Blood Performing Organization Address City/State/ZIP Code Phon e Number [facility] [address] [place] [address] SERVICES (ABNORMAL) HEMAGRAM (05/26/2017 5:57 EDT) Pathologist Sig nature WBC 7.06 4.0 - 10.4 K/cmm [facility] SERVICES RBC 3.20 (L) 4.36 - 5.78 M/cmm [facility] SERVICES Hemoglobin 10.7 (L) 13.8 - 17.3 gm/dl [facility] SERVICES HCT 30.0 (L) 39.5 - 50.2 % [facility] SERVICES MCV 94 81 - 95 fl [facility] SERVICES MCH 33.4 (H) 27.6 - 33.0 pg [facility] SERVICES MCHC 35.7 32.8 - 36.4 gm/dl [facility] SERVICES RDW-CV 11.3 <14.2 % [facility] SERVICES RDW-SD 38.4 <46.0 fl [facility] SERVICES PLT 306 141 - 377 K/cmm [facility] SERVICES MPV 10.3 9.5 - 12.7 fl [facility] SERVICES Specimen Blood specimen (specimen) - Blood Performing Organization Address City/State/ZIP Code Phon e Number [facility] [address] [place] [address] SERVICES (ABNORMAL) ELECTROLYTES (05/25/2017 17:58 EDT) Pathologist Sig nature Sodium 130 (L) 136 - 145 mEq/L [facility] Potassium 3.6 3.5 - 5.0 mEq/L [facility] Chloride 83 (L) 96 - 110 mEq/L [facility]AT [facility] SERVICES CO2 36 (H) 22 - 32 mEq/L [facility] SERVICES Specimen Blood specimen (specimen) - Blood Performing Organization Address City/State/ZIP Code Phon e Number [facility] [address] [place] [phone] SERVICES OSMOLALITY, URINE (05/25/2017 14:29 EDT) Pathologist Sig nature Osmolality, Ur 284 150 - 1,150 mos/kg [facility] LABORATORY SERVICES Specimen Urine (substance) - Urine Performing Organization Address City/[facility] Code Phon e Number [facility] [address] [place] [address] SERVICES URINE ELECTROLYTES (05/25/2017 14:29 EDT) Chloride, Ur 41 mEq/L [facility] Comment: LABORATORY SERVICES Reference Range: No reference range available Potassium, Urine 31.1 mEq/L [facility] SERVICES Sodium, Ur 81.0 mEq/L [facility] SERVICES Specimen Urine (substance) - Urine Performing Organization Address [facility] Code Phon e Number [facility] [address] [place] [address] SERVICES EKG 12-LEAD (05/25/2017 7:40 EDT) Specimen Narrative [facility] EKG - 06/02/2017 8:35 EDT ? [facility] ? Test Date: ?2017-05-25 Pat Name: ? DAVID MERA ?Department: ?? [place] [address] ? Room: ? MW531 Gender: ? M ?[employer] [place] Tour Guide: ?? [id number] : ?1950 ? Requested By: PRADIP MONET Order Number: [id number] ? Reading : ?? SENG PERSON SA, MD ? Measurements Intervals ?[place] ? Rate: ? 76 ? P: ?35 SC: ? 218 ?QRS: ?-47 QRSD: ? 188 ?T: ?193 QT: ? 520 ? QTc: ?588 ? Interpretive Statements ELECTRONIC VENTRICULAR PACEMAKER sinus rhyhtm ABNORMAL RHYTHM ECG Automated Interpretation. ??Provider Int erpretation to follow. Compared to ECG 05/24/2017 07:22:06 No significant changes I reviewed the tracing and have either a greed or edited the findings in this report. Electronically Signed On 8 08:35:11 EDT by SENG PERSON SA, MD. Procedure Note Seng Brody Sa, MD - 06/02/2017 [facility] Test Date: 2017-05-25 Pat Name: DAVID MERA [facility] Gender: M [employer] Guide: [id number] : 1950 Requested By: PRADIPVARGAS MANNING Order Number: [id number] Reading MD: Nithya PERSON SA, MD Measurements Intervals [place] Rate: 76 P: 35 SC: 218 QRS: -47 QRSD: 188 T: 193 QT: 520 QTc: 588 Interpretive Statements ELECTRONIC VENTRICULAR PACEMAKER sinus rhyhtm ABNORMAL RHYTHM ECG Automated Interpretation. Provider Inter pretation to follow. Compared to ECG 05/24/2017 07:22:06 No significant changes I reviewed the tracing and have either a greed or edited the findings in this report. Electronically Signed On 08:35:11 EDT by SENG PERSON SA, MD. Performing Organization Address City/State/ZIP Code Phon e Number [facility] EKG (ABNORMAL) ELECTROLYTES (05/25/2017 5:59 EDT) Pathologist Sig nature Sodium 127 (L) 136 - 145 mEq/L [facility] Potassium 3.7 3.5 - 5.0 mEq/L [facility] Chloride 85 (L) 96 - 110 mEq/L [facility] CO2 36 (H) 22 - 32 mEq/L [facility] Specimen Blood specimen (specimen) - Blood Performing Organization Address [facility]/ZIP [facility] Phon e Number [facility] [address] [place] [address] SERVICES (ABNORMAL) BUN (05/25/2017 5:59 EDT) Pathologist Sig nature BUN 9 (L) 10 - 26 mg/dl [facility] Specimen Blood specimen (specimen) - Blood Performing Organization Address [facility]/ZIP Code Phon e Number [facility] [address] [place] [address] SERVICES MAGNESIUM (05/25/2017 5:59 EDT) Pathologist Sig nature Magnesium 1.7 1.7 - 2.8 mg/dl [facility] Specimen Blood specimen (specimen) - Blood Performing Organization Address [facility]/ZIP [facility] Phon e Number [facility] [address] [place] [address] SERVICES (ABNORMAL) CREATININE (05/25/2017 5:59 EDT) Creatinine 0.54 (L) 0.66 - 1.25 [facility] mg/dl LABORATORY SERVICES GFR, Calculated 109 >60 [facility] Comment: ml/min/1.73m2 LABORATORY eGFR calculated using CKD-EPI equation for SERVICES non Americans. Multiply eGFR by 1.16 for Americans. Specimen Blood specimen (specimen) - Blood Performing Organization Address City/State/ZIP Code Phon e Number [facility] [address] [place] [address] SERVICES (ABNORMAL) HEMAGRAM (05/25/2017 5:59 EDT) Pathologist Sig nature WBC 6.99 4.0 - 10.4 K/cmm [facility] SERVICES RBC 3.16 (L) 4.36 - 5.78 [facility] Hemoglobin 10.5 (L) 13.8 - 17.3 gm/dl [facility] SERVICES HCT 29.5 (L) 39.5 - 50.2 % [facility] SERVICES MCV 93 81 - 95 fl [facility] MCH 33.2 (H) 27.6 - 33.0 pg [facility] SERVICES MCHC 35.6 32.8 - 36.4 gm/dl [facility] SERVICES RDW-CV 11.2 <14.2 % [facility] SERVICES RDW-SD 38.8 <46.0 fl [facility] PLT 290 141 - 377 K/cmm [facility] SERVICES MPV 10.7 9.5 - 12.7 fl [facility] SERVICES Specimen Blood specimen (specimen) - Blood Performing Organization Address City/[facility]/ZIP Code Phon e Number [facility] [address] [place] [address] SERVICES (ABNORMAL) ELECTROLYTES (05/24/2017 18:02 EDT) Pathologist Sig nature Sodium 127 (L) 136 - 145 mEq/L [facility] Potassium 3.7 3.5 - 5.0 mEq/L [facility] SERVICES Chloride 80 (L) 96 - 110 mEq/L [facility] ORY SERVICES CO2 37 (H) 22 - 32 mEq/L [facility] RY SERVICES Specimen Blood specimen (specimen) - Blood Performing Organization Address City/State/ZIP Code Phon e Number [facility] [address] [place] [id number] SERVICES [facility] 12-LEAD (05/24/2017 7:22 EDT) Specimen Narrative [facility] - 05/28/2017 9:56 EDT ? [facility] ? Test Date: ?2017-05-24 Pat Name: ? DAVID MERA ?Department: ?? [facility] ? Room: ? MW531 Gender: ? M ?[employer] Guide: ?? [id number] : ?1950 ? Requested By: PRADIP MONET Order Number: [id number] ? Reading MD: ?? ERVIN WILHELM MD ? Measurements Intervals ?[place] ? Rate: ? 103 ?P: ?-19 SC: ? 232 ?QRS: ?-39 QRSD: ? 192 ?T: ?168 QT: ? 412 ? QTc: ?542 ? Interpretive Statements ELECTRONIC VENTRICULAR PACEMAKER Compared to ECG 05/23/2017 07:20:54 No significant changes I reviewed the tracing and have either a greed or edited the findings in this report. Electronically Signed On 09:56:53 EDT by ERVIN WILHELM MD. Procedure Note Ervin Wilhelm MD - 05/28/[address] [facility] Test Date: 2017-05-24 Pat Name: DAVID MERA Department: [facility] Room: [facility] Gender: M [employer] Guide: [id number] : 1950 Requested By: PRADIP MANNING Order Number: [id number] Reading MD: Hallie WILHELM MD Measurements Intervals [place] Rate: 103 P: -19 SC: 232 QRS: -39 QRSD: 192 T: 168 QT: 412 QTc: 542 Interpretive Statements ELECTRONIC VENTRICULAR PACEMAKER Compared to ECG 05/23/2017 07:20:54 No significant changes I reviewed the tracing and have either a greed or edited the findings in this report. Electronically Signed On 8 09:56:53 EDT by ERVIN WILHELM MD. Performing Organization Address City/State/ZIP Code Phon e Number [facility] EKG (ABNORMAL) ELECTROLYTES (05/24/2017 5:51 EDT) Pathologist Sig nature Sodium 128 (L) 136 - 145 mEq/L [facility] T[facility] SERVICES Potassium 3.9 3.5 - 5.0 mEq/L [facility] TORY SERVICES Chloride 83 (L) 96 - 110 mEq/L [facility] ORY SERVICES CO2 36 (H) 22 - 32 mEq/L [facility] RY SERVICES Specimen Blood specimen (specimen) - Blood Performing Organization Address City/State/ZIP Code Phon e Number [facility] [address] [place] [address] SERVICES (ABNORMAL) BUN (05/24/2017 5:51 EDT) Pathologist Sig nature BUN 9 (L) 10 - 26 mg/dl [facility] Specimen Blood specimen (specimen) - Blood Performing Organization Address City/State/ZIP Code Phon e Number [facility] [address] [place] [address] SERVICES MAGNESIUM (05/24/2017 5:51 EDT) Pathologist Sig nature Magnesium 1.7 1.7 - 2.8 mg/dl [facility] TORY SERVICES Specimen Blood specimen (specimen) - Blood Performing Organization Address City/State/ZIP Code Phon e Number [facility] [address] [place] [address] SERVICES (ABNORMAL) CREATININE (05/24/2017 5:51 EDT) Creatinine 0.59 (L) 0.66 - 1.25 [facility] mg/dl LABORATORY SERVICES GFR, Calculated 105 >60 [facility] Comment: ml/min/1.73m2 LABORATORY eGFR calculated using CKD-EPI equation for SERVICES non Americans. Multiply eGFR by 1.16 for Americans. Specimen Blood specimen (specimen) - Blood Performing Organization Address City/State/ZIP Code Phon e Number [facility] [address] [place] [address] SERVICES (ABNORMAL) HEMAGRAM (05/24/2017 5:51 EDT) Pathologist Sig nature WBC 7.61 4.0 - 10.4 K/cmm [facility] SERVICES RBC 3.35 (L) 4.36 - 5.78 M/cmm [facility] SERVICES Hemoglobin 11.0 (L) 13.8 - 17.3 gm/dl [facility] SERVICES HCT 31.4 (L) 39.5 - 50.2 % [facility] SERVICES MCV 94 81 - 95 fl [facility] SERVICES MCH 32.8 27.6 - 33.0 pg [facility] SERVICES MCHC 35.0 32.8 - 36.4 gm/dl [facility] SERVICES RDW-CV 11.4 <14.2 % [facility] SERVICES RDW-SD 39.0 <46.0 fl [facility] SERVICES PLT 273 141 - 377 K/cmm [facility] SERVICES MPV 10.9 9.5 - 12.7 fl [facility] SERVICES Specimen Blood specimen (specimen) - Blood Performing Organization Address City/[facility]/ZIP Code Phon e Number [facility] [address] [place] [address] SERVICES (ABNORMAL) ELECTROLYTES (05/23/2017 21:40 EDT) Pathologist Sig nature Sodium 128 (L) 136 - 145 mEq/L [facility] Potassium 3.6 3.5 - 5.0 mEq/L [facility] SERVICES Chloride 81 (L) 96 - 110 mEq/L [facility] ORY SERVICES CO2 38 (H) 22 - 32 mEq/L [facility] RY SERVICES Specimen Blood specimen (specimen) - Blood Performing Organization Address City/[facility]/ZIP Code Phon e Number [facility] [address] [place] [address] SERVICES (ABNORMAL) ELECTROLYTES (05/23/2017 12:16 EDT) Pathologist Sig nature Sodium 126 (L) 136 - 145 mEq/L [facility] Potassium 3.7 3.5 - 5.0 mEq/L [facility] SERVICES Chloride 81 (L) 96 - 110 mEq/L [facility] ORY SERVICES CO2 36 (H) 22 - 32 mEq/L [facility] SERVICES Specimen Blood specimen (specimen) - Blood Performing Organization Address City/[facility]/ZIP Code Phon e Number [facility] [address] [place] [address] SERVICES ECHOCARDIOGRAM LIMITED (05/23/2017 10:59 EDT) Specimen Narrative [facility] - 05/23/2017 11:19 EDT *Interpreting Group:* *[facility]* [address] [place] [address] Date of study: 05/23/2017 Transthoracic Echocardiography M-mode, limited 2D, limited spectral Dop pler, and color Doppler *STUDY CONCLUSIONS* Summary: 1. Left ventricle: The cavity size was n ormal. Wall thickness was ?? normal. Systolic function was normal . Wall motion was normal; there ?? were no regional wall motion abnorma lities. 2. Right ventricle: The cavity size was normal. Pacer wire or catheter ?? noted in right ventricle. Systolic f unction was normal. 3. Inferior vena cava: The vessel was no rmal in size. The respirophasic ?? diameter changes were in the normal range (greater than or equal to ?? 50%), consistent with normal central venous pressure. 4. Pericardium, extracardiac: A small to moderate pericardial effusion ?? (maximal diameter 1.5 cm) was identi fied circumferential to the ?? heart. Respirophasic change in strok e volume was normal. Features ?? were not consistent with tamponade p hysiology. *PATIENT PRESENTATION* Height: ? 180cm ((70.9in) ) S/D Pressure: 95 / 65 Weight: ? 111kg ((244.2lb) ) BSA: ?2.39m^2 Test start time: ??10:15 AM. Test stop time: ??11:00 AM. ADMITTING ?Akash Reyes MD ATTENDING ?Tony Rosenberg MD GYM ATTENDANT ??Hali Del Real [facility] PERFORMING ?? [facility], ORDERING ? Jayne Landry REFERRING ?Katia Mccallum *PROCEDURE DATA* Procedure information: ??This study was interpreted by [facility]. Pertin ent images and digital data are archived for permanent storage and are a vailable for subsequent review. Study status: ??Routine. Transthoracic e chocardiography. ??M-mode, limited 2D, limited spectral Doppler, and color Doppler. A Transthoracic Echocardiogram was performed. Scanning w as performed from the parasternal, apical, and subcostal acous tic windows. Images were obtained using an Epiq 10 cardiac ultras ound machine. Image quality was poor. The study was technically limited due to restricted patient mobility and body habitus. ??Study compl etion: ??The patient tolerated the procedure well. *INDICATIONS AND HISTORY* Indications: ?? Pericardial Effusion (I3 1.3). *CARDIAC ANATOMY* Left ventricle: ??The cavity size was no rmal. Wall thickness was normal. Systolic function was normal. Wall motio n was normal; there were no regional wall motion abnormalities. Right ventricle: ??The cavity size was n ormal. Pacer wire or catheter noted in right ventricle. Systolic funct ion was normal. Pericardium: ??A small to moderate peric ardial effusion (maximal diameter 1.5 cm) was identified circumferential t o the heart. ??Doppler: Respirophasic change in stroke volume wa s normal. Features were not consistent with tamponade physiology. Systemic veins: Inferior vena cava: The vessel was kelsey l in size. The respirophasic diameter changes were in the normal rang e (greater than or equal to 50%), consistent with normal central tabatha ous pressure. I have personally reviewed the images an d have reviewed and edited the reported findings. Electronically signed by Bobby Andrade MD 05/23/2017 11:19 Procedure Note Bobby Andrade MD - 05/23/2017 *Interpreting Group:* *[facility]* [address] [place] [address] Date of study: 05/23/2017 Transthoracic Echocardiography M-mode, limited 2D, limited spectral Dop pler, and color Doppler *STUDY CONCLUSIONS* Summary: 1. Left ventricle: The cavity size was n ormal. Wall thickness was normal. Systolic function was normal. W all motion was normal; there were no regional wall motion abnormalit ies. 2. Right ventricle: The cavity size was normal. Pacer wire or catheter noted in right ventricle. Systolic func tion was normal. 3. Inferior vena cava: The vessel was no rmal in size. The respirophasic diameter changes were in the normal ran ge (greater than or equal to 50%), consistent with normal central ve nous pressure. 4. Pericardium, extracardiac: A small to moderate pericardial effusion (maximal diameter 1.5 cm) was identifie d circumferential to the heart. Respirophasic change in stroke v olume was normal. Features were not consistent with tamponade phys iology. *PATIENT PRESENTATION* Height: 180cm ((70.9in) ) S/D Pressure: 95 / 65 Weight: 111kg ((244.2lb) ) BSA: 2.39m^2 Test start time: 10:15 AM. Test stop time: 11:00 AM. ADMITTING Akash Reyes MD ATTENDING Tony Rosenberg MD GYM ATTENDANT Hali Del Real RDCS PERFORMING [facility] ORDERING Jayne Landry Katelyn Doran *PROCEDURE DATA* Procedure information: This study was in terpreted by [facility]. Pertin ent images and digital data are archived for permanent storage and are a vailable for subsequent review. Study status: Routine. Transthoracic ech ocardiography. M-mode, limited 2D, limited spectral Doppler, and color Doppler. A Transthoracic Echocardiogram was performed. Scanning w as performed from the parasternal, apical, and subcostal acous tic windows. Images were obtained using an Epiq 10 cardiac ultras ound machine. Image quality was poor. The study was technically limited due to restricted patient mobility and body habitus. Study complet ion: The patient tolerated the procedure well. *INDICATIONS AND HISTORY* Indications: Pericardial Effusion (I31.3 ). *CARDIAC ANATOMY* Left ventricle: The cavity size was norm al. Wall thickness was normal. Systolic function was normal. Wall motio n was normal; there were no regional wall motion abnormalities. Right ventricle: The cavity size was nor mal. Pacer wire or catheter noted in right ventricle. Systolic funct ion was normal. Pericardium: A small to moderate pericar dial effusion (maximal diameter 1.5 cm) was identified circumferential t o the heart. Doppler: Respirophasic change in stroke volume wa s normal. Features were not consistent with tamponade physiology. Systemic veins: Inferior vena cava: The vessel was kelsey l in size. The respirophasic diameter changes were in the normal rang e (greater than or equal to 50%), consistent with normal central tabatha ous pressure. I have personally reviewed the images an d have reviewed and edited the reported findings. Electronically signed by Bobby Andrade MD 05/23/2017 11:19 Performing Organization Address City/[facility] Code Phon e Number [facility] FLUID DIFFERENTIAL (05/23/2017 7:47 EDT) Pathologist Sig nature Neutrophils, Fluid 30 % [facility] Lymphocytes, Fluid 64 % [facility] [place]/Macro, Fluid 5 % [facility] Eosinophil, Fluid 1 % [facility] Specimen Pericardial Fluid Performing Organization Address [facility] Phon e Number [facility] [address] [place] [address] SERVICES FUNGUS CULTURE/SMEAR, OTHER (05/23/2017 7:47 EDT) Pathologist Sig nature Fungal Smear No fungi seen [facility] Result No fungi isolated [facility] SERVICES Specimen FOSMIC - Pericardial Fluid Performing Organization Address City/[facility]/ZIP Code Phon e Number [facility] [address] [place] [address] SERVICES ANAEROBE CULTURE/SMEAR(INC. AEROBES), FLUID (05/23/2017 7:47 EDT) Gram Smear Result Few [facility] Polys LABORATORY SERVICES Gram Smear Result No bacteria seen [facility] Result No growth [facility] Specimen FOSMIC - Pericardial Fluid Performing Organization Address [facility]/ZIP Code Phon e Number [facility] [address] [place] [address] SERVICES HEMATOCRIT, BODY FLUID (05/23/2017 7:47 EDT) Hematocrit,Body 6.5Comment: % [facility] [place] PERICARDIAL FLUID LABORATORY SERVICES Specimen FOSCHM - Pericardial Fluid Performing Organization Address [facility]/ZIP Code Phon e Number [facility] [address] [place] [address] SERVICES FLUID CELL COUNT (05/23/2017 7:47 EDT) Pathologist Sig nature RBC, Fluid 661,000 /cmm [facility] Nucleated Cells 1,773 /cmm [facility] Fluid Comment Markedly bloody [facility] SERVICES Specimen FOSCH - Pericardial Fluid Performing Organization Address City/[facility]/ZIP Code Phon e Number [facility] [address] [place] [address] SERVICES TOTAL PROTEIN, FLUID (05/23/2017 7:47 EDT) Protein, Fluid 5.5 g/dl [facility] Comment: LABORATORY SERVICES Reference Range: Pleural fluid specimen (specimen) Exudate > 3.0 g/dl Pleural fluid specimen (specimen) Transudate <3.0 g/dl Peritoneal fluid sample (specimen) Serum ascites to albumin gradient (SAGG) superior to total protein content in differentiating causes of effusion. PERICARDIAL FLUID This assay has not been validated nor has it been approved by the FDA for this unique sample type. It has been performed at physician request. Reference range has not been defined. It should not be used for definitive clinical diagnosis or therapy and should be interpreted with caution in conjunction will all other clinical and laboratory information. Comparison of this result with the concentration in the blood, serum, or plasma is recommended. Specimen FOSCHM - Pericardial Fluid Performing Organization Address [facility] e [facility] LABORATORY [address] [place] [address] SERVICES LDH, FLUID (05/23/2017 7:47 EDT) Pathologist Sig nature LDH, Fluid 2,337 U/L [facility] Comment: LABORATORY SERVICES Pleural fluid specimen (specimen) Reference Range: Suggestive of exudate if fluid cholesterol is > 45 mg/dl or fluid LDH is greater than 0.45 times the upper limit of normal serum LDH levels. Peritoneal fluid sample (specimen) No reference range available PERICARDIAL FLUID This assay has not been validated nor has it been approved by the FDA for this unique sample type. It has been performed at physician request. Reference range has not been defined. It should not be used for definitive clinical diagnosis or therapy and should be interpreted with caution in conjunction will all other clinical and laboratory information. Comparison of this result with the concentration in the blood, serum, or plasma is recommended. Specimen FOSCHM - Pericardial Fluid Performing Organization Address [facility] e [facility] LABORATORY [address] [place] [address] SERVICES GLUCOSE, FLUID (05/23/2017 7:47 EDT) Glucose, Fluid 54 mg/dl [facility] Comment: LABORATORY SERVICES Reference Range: Pleural fluid specimen (specimen) Low glucose is accepted as <60 mg/dl or pleural fluid to serum glucose ratio of <0.5. Peritoneal fluid sample (specimen) Low glucose is generally accepted as <50 mg/dl. Pericardial Fluid This assay has not been validated nor has it been approved by the FDA for this unique sample type. It has been performed at physician request. Reference range has not been defined. It should not be used for definitive clinical diagnosis or therapy and should be interpreted with caution in conjunction will all other clinical and laboratory information. Comparison of this result with the concentration in the blood, serum, or plasma is recommended. Specimen FOSCHM - Pericardial Fluid Performing Organization Address [facility]/ZIP Code Phon e Number [facility] [address] [place] [address] SERVICES ALBUMIN, FLUID (05/23/2017 7:47 EDT) Albumin, Fluid 2.5 g/dl [facility] Comment: LABORATORY SERVICES Reference Range: Pleural fluid specimen (specimen) No reference range available Peritoneal fluid sample (specimen) Suggestive of portal hypertension if serum to ascites albumin gradient is >1.1 g/dl. PERICARDIAL FLUID This assay has not been validated nor has it been approved by the FDA for this unique sample type. It has been performed at physician request. Reference range has not been defined. It should not be used for definitive clinical diagnosis or therapy and should be interpreted with caution in conjunction will all other clinical and laboratory information. Comparison of this result with the concentration in the blood, serum, or plasma is recommended. Specimen FOSCHM - Pericardial Fluid Performing Organization Address [facility] Phon e Number [facility] [address] [place] [address] SERVICES EKG 12-LEAD (05/23/2017 7:20 EDT) Specimen Narrative [facility] EKG - 05/23/2017 11:4 5 EDT ? [facility] ? Test Date: ?2017-05-23 Pat Name: ? DAVID MERA ?Department: ?? [facility] ? Room: ? MW531 Gender: ? M ?[employer] Guide: ?? [id number] : ?1950 ? Requested By: PRADIP MONET Order Number: [id number] ? Reading : ?? MARCO A FOX MD ? Measurements Intervals ?[place] ? Rate: ? 102 ?P: ? SC: ? 0 ?QRS: ?-20 QRSD: ? 189 ?T: ?178 QT: ? 398 ? QTc: ?519 ? Interpretive Statements ELECTRONIC VENTRICULAR PACEMAKER ABNORMAL RHYTHM ECG I reviewed the tracing and have either a greed or edited the findings in this report. Electronically Signed On 8 11:45:47 EDT by MARCO A FOX MD. Procedure Note Marco A Fox MD - 05/23/2017 [facility] Test Date: 2017-05-23 Pat Name: DAVID MERA Department: [facility] Room: [facility] Gender: M [employer] Guide: [id number] : 1950 Requested By: PRADIP MANNING Order Number: [id number] Reading MD: Hallie FOX MD Measurements Intervals [place] Rate: 102 P: SC: 0 QRS: -20 QRSD: 189 T: 178 QT: 398 QTc: 519 Interpretive Statements ELECTRONIC VENTRICULAR PACEMAKER ABNORMAL RHYTHM ECG I reviewed the tracing and have either a greed or edited the findings in this report. Electronically Signed On 11:45:47 EDT by MARCO A FOX MD. Performing Organization Address City/State/ZIP Code Phon e Number [facility] EKG (ABNORMAL) ELECTROLYTES (05/23/2017 6:42 EDT) Pathologist Sig nature Sodium 124 (LL) 136 - 145 mEq/L [facility] Potassium 3.5 3.5 - 5.0 mEq/L [facility] Chloride 84 (L) 96 - 110 mEq/L [facility] CO2 33 (H) 22 - 32 mEq/L [facility] Specimen Blood specimen (specimen) - Blood Performing Organization Address [facility]/ZIP Code Phon e Number [facility] [address] [place] [address] SERVICES BUN (05/23/2017 6:42 EDT) Pathologist Sig nature BUN 10 10 - 26 mg/dl [facility] LABORAT[facility] RY SERVICES Specimen Blood specimen (specimen) - Blood Performing Organization Address City/[facility]/ZIP Code Phon e Number [facility] [address] [place] [address] SERVICES MAGNESIUM (05/23/2017 6:42 EDT) Pathologist Sig nature Magnesium 1.7 1.7 - 2.8 mg/dl [facility] TORY SERVICES Specimen Blood specimen (specimen) - Blood Performing Organization Address [facility]/ZIP Code Phon e Number [facility] [address] [place] [address] SERVICES (ABNORMAL) CREATININE (05/23/2017 6:42 EDT) Creatinine 0.50 (L) 0.66 - 1.25 [facility] mg/dl LABORATORY SERVICES GFR, Calculated 113 >60 [facility] Comment: ml/min/1.73m2 LABORATORY eGFR calculated using CKD-EPI equation for SERVICES non Americans. Multiply eGFR by 1.16 for Americans. Specimen Blood specimen (specimen) - Blood Performing Organization Address City/[facility]/ZIP Code Phon e Number [facility] [address] [place] [address] SERVICES (ABNORMAL) HEMAGRAM (05/23/2017 6:42 EDT) Pathologist Sig nature WBC 8.96 4.0 - 10.4 K/cmm [facility]ORAT[facility] SERVICES RBC 3.30 (L) 4.36 - 5.78 [facility] Hemoglobin 11.0 (L) 13.8 - 17.3 gm/dl [facility] SERVICES HCT 30.8 (L) 39.5 - 50.2 % [facility] SERVICES MCV 93 81 - 95 fl [facility] SERVICES MCH 33.3 (H) 27.6 - 33.0 pg [facility] SERVICES MCHC 35.7 32.8 - 36.4 gm/dl [facility] SERVICES RDW-CV 11.3 <14.2 % [facility] SERVICES RDW-SD 38.5 <46.0 fl [facility] SERVICES PLT 254 141 - 377 [facility] MPV 11.2 9.5 - 12.7 fl [facility]OR[facility] SERVICES Specimen Blood specimen (specimen) - Blood Performing Organization Address City/[facility]/ZIP Code Phon e Number [facility] [address] [place] [address] SERVICES CYTOPATHOLOGY (05/23/2017 0:00 EDT) Pathology Report: CYTOPATHOLOGY REPORT [facility] Reports generated via electronic interface contain jacquelyn ginal data; SERVICES however they are lacking the format of the original re port. Caution should be taken when reading/interpreting unfo rmatted reports. Name: ? ADOLPH DAVID Martinez ? Accession #: ? [id number] : ? 1950 (Age: 66) ??M ?Collect Date: ? 05/23 Location: ? M005 ? Receive Date : ? 05/23/2017 Provider: ? LUCINDA MULLER MD Copy to: ?LALY LUIS MD ? CYTOLOGIC DIAGNOSIS: PERICARDIAL FLUID. CYTOLOGIC EVALUATION: - ??Negative for malignant cells. - ??Scattered mesothelial ce lls in a background of blood and acute inflammation. Document reviewed and electronically signed by: ? RIA KRAUSE MD Report Date: ??05/26/2017 16:24 By the signature above, the attending physician certif ies that he/she has personally conducted a gross and/or microscopic examin ation of the described specimens and rendered or confirmed the above diagnosi s. Specimen Type: ? Pericardial Fluid Clinical History: ? Moderate pericardial effusion and cough along with sev ere hyponatremia. ? Gross Description: ? 410 ccs of opaque red fluid were received and pr ocessed by selective cellular enhancement technique. ? End of Report Specimen Performing Organization Address City/State/ZIP Code Phon e Number [facility] [address] [place] [address] SERVICES (ABNORMAL) ELECTROLYTES (05/22/2017 23:40 EDT) Pathologist Sig nature Sodium 125 (L) 136 - 145 mEq/L [facility] T[facility] SERVICES Potassium 3.3 (L) 3.5 - 5.0 mEq/L [facility]A T[facility] SERVICES Chloride 84 (L) 96 - 110 mEq/L [facility] LABORAT ORY SERVICES CO2 33 (H) 22 - 32 mEq/L [facility] LABORATO RY SERVICES Specimen Blood specimen (specimen) - Blood Performing Organization Address City/[facility]/ZIP Code Phon e Number [facility] [address] [place] [address] SERVICES (ABNORMAL) ELECTROLYTES (05/22/2017 18:36 EDT) Pathologist Sig nature Sodium 124 (LL)Comment: 136 - 145 mEq/L [facility] Slight hemolysis LABORATORY SERVICES Potassium 3.9 3.5 - 5.0 mEq/L [facility] Comment: LABORATORY SERVICES Slight hemolysis Hemolysis may elevate potassium result. Chloride 81 (L)Comment: 96 - 110 mEq/L [facility] Slight hemolysis LABORATORY SERVICES CO2 32Comment: Slight 22 - 32 mEq/L [facility] hemolysis LABORATORY SERVICES Specimen Blood specimen (specimen) - Blood Performing Organization Address [facility] Phon e Number [facility] [address] [place] [address] SERVICES CHEST PA AND LATERAL (05/22/2017 14:43 EDT) Anatomical Region Laterality Modality Other Specimen Narrative [facility] - 05/22/2017 15:28 EDT CHEST PA AND LATERAL ??05/22/2017 2:43 PM Signs and Symptoms/Comments: ?? Cardiac Pacemaker Impression: 1. ??Status post placement pericardial d rain. 2. ??Stable position of the dual chamber pacemaker. Comparison: 18 hours prior Findings: Dense pleural calcification along the la teral right chest wall is unchanged in appearance. There is incomp lete inflation of the infrahilar lung with the left diaphragm less well seen. Procedure Note Laly Alberto MD - 05/22/2017 CHEST PA AND LATERAL 05/22/2017 2:43 PM Signs and Symptoms/Comments: Cardiac Pacemaker Impression: 1. Status post placement pericardial yfn in. 2. Stable position of the dual chamber p acemaker. Comparison: 18 hours prior Findings: Dense pleural calcification along the la teral right chest wall is unchanged in appearance. There is incomp lete inflation of the infrahilar lung with the left diaphragm less well seen. Performing Organization Address City/[facility]/ZIP Code Phon e Number [facility] (ABNORMAL) ELECTROLYTES (05/22/2017 12:36 EDT) Pathologist Sig nature Sodium 121 (LL)Comment: 136 - 145 mEq/L [facility] Moderate hemolysis LABORATORY SERVICES Potassium 5.3 (H) 3.5 - 5.0 mEq/L [facility] Comment: LABORATORY SERVICES Moderate hemolysis Hemolysis may elevate potassium result. Chloride 85 (L)Comment: 96 - 110 mEq/L [facility] Moderate hemolysis LABORATORY SERVICES CO2 27Comment: Moderate 22 - 32 mEq/L [facility] hemolysis LABORATORY SERVICES Specimen Blood specimen (specimen) - Blood Performing Organization Address [facility]/ZIP Code Phon e Number [facility] [address] [place] [address] SERVICES BACTERIAL CULTURE, BLOOD (05/22/2017 9:58 EDT) Pathologist Sig nature Result No growth [facility] LABORATOR Y SERVICES Specimen Blood specimen (specimen) - Blood Performing Organization Address [facility]/ZIP Code Phon e Number [facility] [address] [place] [phone] SERVICES BACTERIAL CULTURE, BLOOD (05/22/2017 9:58 EDT) Pathologist Sig nature Result No growth [facility] LABORATOR Y SERVICES Specimen Blood specimen (specimen) - Blood Performing Organization Address [facility] Phon e Number [facility] [address] [place] [address] SERVICES EKG 12-LEAD (05/22/2017 8:04 EDT) Specimen Narrative [facility] EKG - 05/26/2017 12:5 0 EDT ? [facility] ? Test Date: ?2017-05-22 Pat Name: ? DAVID MERA ?Department: ?? [facility] ? Room: ? MW531 Gender: ? M ?[employer] Tour Guide: ?? [id number] : ?1950 ? Requested By: PRADIP MONET Order Number: [id number] ? Reading MD: ?? GAGAN RAMOS MD ? Measurements Intervals ?[place] ? Rate: ? 115 ?P: ?-20 SC: ? 237 ?QRS: ?-24 QRSD: ? 177 ?T: ?172 QT: ? 357 ? QTc: ?496 ? Interpretive Statements ELECTRONIC VENTRICULAR PACEMAKER ABNORMAL RHYTHM ECG Compared to ECG 05/21/2017 20:29:55 No significant changes I reviewed the tracing and have either a greed or edited the findings in this report. Electronically Signed On 8 12:50:27 EDT by GAGAN RAMOS MD. Procedure Note Gagan Ramos MD - 05/26/[address] [facility] Test Date: 2017-05-22 Pat Name: DAVID MERA Department: B[facility] Chao Room: [facility] Gender: M [employer] Guide: [id number] : 1950 Requested By: PRADIP MANNING Order Number: [id number] Reading MD: Vern RAMOS MD Measurements Intervals [place] Rate: 115 P: -20 SC: 237 QRS: -24 QRSD: 177 T: 172 QT: 357 QTc: 496 Interpretive Statements ELECTRONIC VENTRICULAR PACEMAKER ABNORMAL RHYTHM ECG Compared to ECG 05/21/2017 20:29:55 No significant changes I reviewed the tracing and have either a greed or edited the findings in this report. Electronically Signed On 8 12:50:27 EDT by GAGAN RAMOS MD. Performing Organization Address City/[facility]/ZIP Code Phon e Number [facility] EKG BUN (05/22/2017 4:09 EDT) Pathologist Sig nature BUN 11 10 - 26 mg/dl [facility] Specimen Blood specimen (specimen) - Blood Performing Organization Address [facility]/ZIP Code Phon e Number [facility] [address] [place] [address] SERVICES MAGNESIUM (05/22/2017 4:09 EDT) Pathologist Sig nature Magnesium 2.1 1.7 - 2.8 mg/dl [facility] LABORA TORY SERVICES Specimen Blood specimen (specimen) - Blood Performing Organization Address City/State/ZIP Code Phon e Number [facility] [address] [place] [address] SERVICES (ABNORMAL) CREATININE (05/22/2017 4:09 EDT) Creatinine 0.56 (L) 0.66 - 1.25 [facility] mg/dl LABORATORY SERVICES GFR, Calculated 108 >60 [facility] Comment: ml/min/1.73m2 LABORATORY eGFR calculated using CKD-EPI equation for SERVICES non Americans. Multiply eGFR by 1.16 for Americans. Specimen Blood specimen (specimen) - Blood Performing Organization Address City/State/ZIP Code Phon e Number [facility] [address] [place] [address] SERVICES (ABNORMAL) HEMAGRAM (05/22/2017 4:09 EDT) Pathologist Sig nature WBC 10.75 (H) 4.0 - 10.4 K/cmm [facility] SERVICES RBC 3.70 (L) 4.36 - 5.78 M/cmm [facility] SERVICES Hemoglobin 12.2 (L) 13.8 - 17.3 gm/dl [facility] SERVICES HCT 34.1 (L) 39.5 - 50.2 % [facility] SERVICES MCV 92 81 - 95 fl [facility] SERVICES MCH 33.0 27.6 - 33.0 pg [facility] SERVICES MCHC 35.8 32.8 - 36.4 gm/dl [facility]OR[facility] SERVICES RDW-CV 10.9 <14.2 % [facility] SERVICES RDW-SD 37.2 <46.0 fl [facility]OR[facility] SERVICES PLT 294 141 - 377 K/cmm [facility] SERVICES MPV 10.7 9.5 - 12.7 fl [facility] SERVICES Specimen Blood specimen (specimen) - Blood Performing Organization Address City/State/ZIP Code Phon e Number [facility] [address] [place] [address] SERVICES (ABNORMAL) ELECTROLYTES (05/22/2017 4:09 EDT) Pathologist Sig nature Sodium 122 (LL) 136 - 145 mEq/L [facility] SERVICES Potassium 4.0 3.5 - 5.0 mEq/L [facility] SERVICES Chloride 84 (L) 96 - 110 mEq/L [facility] SERVICES CO2 29 22 - 32 mEq/L [facility] SERVICES Specimen Blood specimen (specimen) - Blood Performing Organization Address City/State/ZIP Code Phon e Number [facility] [address] [place] [address] SERVICES (ABNORMAL) ELECTROLYTES (05/22/2017 0:23 EDT) Pathologist Sig nature Sodium 120 (LL) 136 - 145 mEq/L [facility] SERVICES Potassium 3.4 (L) 3.5 - 5.0 mEq/L [facility] SERVICES Chloride 83 (L) 96 - 110 mEq/L [facility] SERVICES CO2 31 22 - 32 mEq/L [facility] SERVICES Specimen Blood specimen (specimen) - Blood Performing Organization Address City/State/ZIP Code Phon e Number [facility] [address] [place] [address] SERVICES EKG 12-LEAD (05/21/2017 20:29 EDT) Specimen Narrative [facility] EKG - 05/30/2017 11:5 5 EDT ? [facility] ? Test Date: ?2017-05-21 Pat Name: ? DAVID MERA ?Department: ?? [facility] ? Room: ? MW531 Gender: ? M ?[employer] [place] Tour Guide: ?? [id number] : ?1950 ? Requested By: ROBLES Cabral Order Number: [id number] ? Reading MD: ?? ASHLEY EDWARDS MD ? Measurements Intervals ?[place] ? Rate: ? 109 ?P: ? SC: ? 0 ?QRS: ?-41 QRSD: ? 179 ?T: ?175 QT: ? 391 ? QTc: ?528 ? Interpretive Statements ELECTRONIC VENTRICULAR PACEMAKER ABNORMAL RHYTHM ECG Compared to ECG 05/21/2017 07:12:25 No significant changes I reviewed the tracing and have either a greed or edited the findings in this report. Electronically Signed On 8 11:55:09 EDT by ASHLEY EDWARDS MD. Procedure Note Ashley Edwards Jr., MD - 05/30/2017 [facility] Test Date: 2017-05-21 Pat Name: DAVID MERA Department: [facility] Latasha Zhanna Room: [facility] Gender: M [employer] Guide: [id number] : 1950 Requested By: ROBLES Cabral Order Number: [id number] Martha MD: Elsa EDWARDS MD Measurements Intervals [place] Rate: 109 P: SC: 0 QRS: -41 QRSD: 179 T: 175 QT: 391 QTc: 528 Interpretive Statements ELECTRONIC VENTRICULAR PACEMAKER ABNORMAL RHYTHM ECG Compared to ECG 05/21/2017 07:12:25 No significant changes I reviewed the tracing and have either a greed or edited the findings in this report. Electronically Signed On 8 11:55:09 EDT by ASHLEY EDWARDS MD. Performing Organization Address City/State/ZIP Code Phon e Number [facility] EKG PORTABLE CHEST 1 VIEW (05/21/2017 20:25 EDT) Anatomical Region Laterality Modality Other Specimen Narrative [facility] - 05/21/2017 20:35 EDT PORTABLE CHEST 1 VIEW ??05/21/2017 8:25 PM Clinical History/Comments: Cardiac Pacemaker Comparison: Chest radiographs dated May 20, 2017; May 02, 2017; and April 30, 2017. Findings: Single portable AP view of the chest obt ained 40 degrees upright show bibasilar atelectasis with bilatera l pleural effusions. Redemonstrated is extensive pleural calc ification in the right. The cardiac silhouette is enlarged but stabl e, there is minimal indistinctness of the pulmonary vascular ity which may relate to early interstitial lung edema. Again not ed is a left chest battery pack pacemaker with 2 leads projecting i n the right atrium and right ventricle. There is a coiled catheter co michael from below near the midline and extending towards the right, this was not present on the most recent prior radiographs. No visibl e pneumothorax, however cannot be excluded on a semiupright upri t radiograph. Procedure Note Anthony Hartman MD - 05/21/2017 PORTABLE CHEST 1 VIEW 05/21/2017 8:25 PM Clinical History/Comments: Cardiac Pacemaker Comparison: Chest radiographs dated May 20, 2017; May 02, 2017; and April 30, 2017. Findings: Single portable AP view of the chest obt ained 40 degrees upright show bibasilar atelectasis with bilatera l pleural effusions. Redemonstrated is extensive pleural calc ification in the right. The cardiac silhouette is enlarged but stabl e, there is minimal indistinctness of the pulmonary vascular ity which may relate to early interstitial lung edema. Again not ed is a left chest battery pack pacemaker with 2 leads projecting i n the right atrium and right ventricle. There is a coiled catheter co michael from below near the midline and extending towards the right, this was not present on the most recent prior radiographs. No visibl e pneumothorax, however cannot be excluded on a semiupright upri ght radiograph. Performing Organization Address City/State/ZIP Code Phon e Number [facility] (ABNORMAL) ELECTROLYTES (05/21/2017 20:08 EDT) Pathologist Sig nature Sodium 121 (LL) 136 - 145 mEq/L [facility] SERVICES Potassium 3.7 3.5 - 5.0 mEq/L [facility] SERVICES Chloride 79 (L) 96 - 110 mEq/L [facility] SERVICES CO2 32 22 - 32 mEq/L [facility] SERVICES Specimen Blood specimen (specimen) - Blood Performing Organization Address City/[facility]/ZIP Code Phon e Number [facility] [address] [place] [address] SERVICES PERMANENT PACEMAKER PROCEDURE (05/21/2017 19:42 EDT) Specimen Narrative [facility] - 05/21/2017 20:01 EDT *Cardiology* [address] [place] [address] Lead Revision Patient: David Mera ? Study Date: ?05/21/2017 ? Accession #: ? [id number] : ? 1950 Referring: Katia Mccallum Attending: Seng Rand MD, PhD Fellow: Assisting: John Dixon RN Copies: ATTESTATION: I, Dr. Seng Rand have reviewe d and agree with the findings of this report. SUMMARY OF PROCEDURE: - There were no complications. - Successful Lead revision. - Successful Pericardiocentesis and Wendy cardial Drain placement PROCEDURE INDICATION: Lead failure HISTORY AND INDICATIONS: ?? Dyspnea/SOB. ??3degrees AV block. ??Pericardial effusion, due to postoperative hemorrhag e, with tamponade. Effusion s/p recent permanent pacemaker implant, lead s suspected as source of bleeding. STUDY DATA: ?? Study status: ??Urgent. PROCEDURE: - Lead revision Lead explant ??Lead implant ??Pericardiocentesis and pericardial dr ain placement ??720 cc serosanginous drainage ??Minimal effusion by echo post procedu re by echo (1 cm at the most, ??regionally distributed) ANESTHESIA: Conscious sedation and local anesthesia. PROCEDURE: The risks, benefits, and alternatives to the procedure and sedation were explained and informed consent was obtai cass. The patient name, date of , surgica l site, and procedure were verified prior to the procedure. The pat ient was brought to the OR in the fasting state. The chest and left ch est was prepped and draped in the usual sterile manner. ??Lidocaine 2% and Bupivacaine 0.5% was administered to the left deltopectoral g roove. The subxiphoid area was also anesthetized with lidocaine,. Using fluoroscopic guidance a long Seldi nger needle as advanced substernally to the pericardium: The RV was wired twice before successful access to the pericardial spa ce was achieved and a Pig tail drainage catheter was placed in the wendy cardium and 720 cc serosanguinous fluid was drained with ma rked improvement in the blood pressure noted instantly. An antibiotic disc and Tegaderm were guicho evan over the entry point of the catheter. At the end of the case there w as no further drainage though some fluid still present by post procedu re echo noted. The attending physician was present for the entire pro cedure. The pocket was opened with an incision t hrough the previous scar. The right ventricular lead was disconnected. The right atrial lead was disconnected. The screw was unscrewed an d attempts to reposition and advance failed due to screw failure: The lead insulation was used to advance a glide wire into the axillary v ein and the lead was extracted. A 7 Bhutanese safety sheath was advanced ov er the wire and using a C315 S4 sheath a 3830 lead was implanted in Bach eason's bundle (second site successful). The sheaths were slit and split and the suture sleeve sutured with 0-silk. The right ventricular lead was d isconnected. The lead screw was retracted and using a hand shaped stylet the lead was successfully moved to the RV mid-apical septum and actively fixed and tested. The sheath was slit and the lead sleeve sutured to the prepectoralis fascia with 0-silk suture. Wound closure. The pocket was copiously irrigated with bacitracin solution. The leads were attached to the device and the system was placed in the pocket.The wound was close d in three layers.The deepest layer was continuous vertical mattress u sing 2-0 Monocryl.The mid layer was continuous horizontal mattress using 3-0 Monocryl.The superficial layer was continuous horizontal mattress using 4-0 Monocryl.The skin was coated with topical skin adhesive. IMPLANTED HARDWARE: Implanted device: [employer] - Spriggle [employer] [facility] - Serial number: [id number]. Implanted originally on 05-02-2017 . LEAD PARAMETERS + + +---- + + Lead # ? 1 ? 1 ? 2 ? + + +---- + + Chamber ? RA ? RA ? RV ? + + +---- + + Date implanted ?? 05/02/2017 ? 05/21/2017 ? 05/02/2017 ? + + +---- + + Model ? [employer] Medtronic Select [place] Sci 2058 ?? information ? 9212 ? [id number] ? + + +---- + + Serial number ?? [id number] ? [id number] ? [id number] ? + + +---- + + Location ? RA appendage ? BACHMANNS BUNDLE Mid RV septum ? + + +---- + + Capture ? 1V@ 0.5ms ? 0.4V@ 0.5ms ? + + +---- + + Impedance ? 750Ohms ? 600Ohms ? + + +---- + + Sensing ? 2mV ? 15mV ? + + +---- + + Status ? Explanted ? Active ? Active ? + + +---- + + STUDY COMPLETION Administered medications: ?? Cefazolin ( Ancef, Kefzol) , prior to the procedure for infection prophylaxis. - Fluoroscopy time: 5min. - Isovue Contrast: 3ml. - Patient in-room time: 04:45 PM. - Patient out-of-room time: 07:48 PM. - Intake: 850ml - Output: 550ml - Estimated blood loss: 30ml. Pericardia l fluid drained: 720 cc. Summary: 1. Study data: Lead revision. PLAN: ??See post procedure orders. Bed r est for 4hours. Ketorolac for pericardial pain. At the completion of the procedure, find ings, results, any complications, and treatment plan were c ommunicated to the patient and reinforced after recovery from anesthesi a. With the patient's consent, the attending physician communicated fin dings, results, any complications, and treatment plan to [facility] members and patient support persons who were present at the conclusi on of the procedure. POST PROCEDURAL DISPOSITION: Patient was admitted as an inpatient mello or to this procedure. Electronically signed by Seng Rand MD, PhD 05/21/2017 20:01 Procedure Note Seng Rand MD - 05/21/2017 *Cardiology* [address] [place] [id number] Lead Revision Patient: David Mera Study Date: 05/02 : 1950 Referring: Katia Mccallum Attending: Seng Rand MD, PhD Fellow: Assisting: John Dixon RN Copies: ATTESTATION: I, Dr. Seng Rand have reviewe d and agree with the findings of this report. SUMMARY OF PROCEDURE: - There were no complications. - Successful Lead revision. - Successful Pericardiocentesis and Wendy cardial Drain placement PROCEDURE INDICATION: Lead failure HISTORY AND INDICATIONS: Dyspnea/SOB. 3d egrees AV block. Pericardial effusion, due to postoperative hemorrhag e, with tamponade. Effusion s/p recent permanent pacemaker implant, lead s suspected as source of bleeding. STUDY DATA: Study status: Urgent. PROCEDURE: - Lead revision Lead explant Lead implant Pericardiocentesis and pericardial drai n placement 720 cc serosanginous drainage Minimal effusion by echo post procedure by echo (1 cm at the most, regionally distributed) ANESTHESIA: Conscious sedation and local anesthesia. PROCEDURE: The risks, benefits, and alternatives to the procedure and sedation were explained and informed consent was obtai cass. The patient name, date of , surgica l site, and procedure were verified prior to the procedure. The pat ient was brought to the OR in the fasting state. The chest and left ch est was prepped and draped in the usual sterile manner. Lidocaine 2% a nd Bupivacaine 0.5% was administered to the left deltopectoral g roove. The subxiphoid area was also anesthetized with lidocaine,. Using fluoroscopic guidance a long Seldi nger needle as advanced substernally to the pericardium: The RV was wired twice before successful access to the pericardial spa ce was achieved and a Pig tail drainage catheter was placed in the wendy cardium and 720 cc serosanguinous fluid was drained with ma rked improvement in the blood pressure noted instantly. An antibiotic disc and Tegaderm were guicho evan over the entry point of the catheter. At the end of the case there w as no further drainage though some fluid still present by post procedu re echo noted. The attending physician was present for the entire pro cedure. The pocket was opened with an incision t hrough the previous scar. The right ventricular lead was disconnected. The right atrial lead was disconnected. The screw was unscrewed an d attempts to reposition and advance failed due to screw failure: The lead insulation was used to advance a glide wire into the axillary v ein and the lead was extracted. A 7 Bhutanese safety sheath was advanced ov er the wire and using a C315 S4 sheath a 3830 lead was implanted in Bach eason's bundle (second site successful). The sheaths were slit and split and the suture sleeve sutured with 0-silk. The right ventricular lead was d isconnected. The lead screw was retracted and using a hand shaped stylet the lead was successfully moved to the RV mid-apical septum and actively fixed and tested. The sheath was slit and the lead sleeve sutured to the prepectoralis fascia with 0-silk suture. Wound closure. The pocket was copiously irrigated with bacitracin solution. The leads were attached to the device and the system was placed in the pocket.The wound was close d in three layers.The deepest layer was continuous vertical mattress u sing 2-0 Monocryl.The mid layer was continuous horizontal mattress using 3-0 Monocryl.The superficial layer was continuous horizontal mattress using 4-0 Monocryl.The skin was coated with topical skin adhesive. IMPLANTED HARDWARE: Implanted device: [employer] - Oscar sentio PPM - Serial number: [id number]. Implanted originally on 05-02-2017 . LEAD PARAMETERS + + +---- + + Lead # 1 1 2 + + +---- + + Chamber RA RA RV + + +---- + + Date implanted 05/02/2017 05/21/2017 05/02/2017 + + +---- + + Model [employer] Medtronic Shelby ct [employer] [id number] information [id number] + + +---- + + Serial number [id number] + + +---- + + Location RA appendage NEVIN BUNDL E Mid RV septum + + +---- + + Capture 1V@ 0.5ms 0.4V@ 0.5ms + + +---- + + Impedance 750Ohms 600Ohms + + +---- + + Sensing 2mV 15mV + + +---- + + Status Explanted Active Active + + +---- + + STUDY COMPLETION Administered medications: Cefazolin (Anc ef, Kefzol) , prior to the procedure for infection prophylaxis. - Fluoroscopy time: 5min. - Isovue Contrast: 3ml. - Patient in-room time: 04:45 PM. - Patient out-of-room time: 07:48 PM. - Intake: 850ml - Output: 550ml - Estimated blood loss: 30ml. Pericardia l fluid drained: 720 cc. Summary: 1. Study data: Lead revision. PLAN: See post procedure orders. Bed res t for 4hours. Ketorolac for pericardial pain. At the completion of the procedure, find ings, results, any complications, and treatment plan were c ommunicated to the patient and reinforced after recovery from anesthesi a. With the patient's consent, the attending physician communicated fin dings, results, any complications, and treatment plan to [facility] and patient support persons who were present at the conclusi on of the procedure. POST PROCEDURAL DISPOSITION: Patient was admitted as an inpatient mello or to this procedure. Electronically signed by Seng Rand MD, PhD 05/21/2017 20:01 Performing Organization Address City/[facility]/ZIP Code Phon e Number [facility] INPATIENT ADD-ON (05/21/2017 18:20 EDT) Pathologist Sig nature Tests to be added FREE T4,TSH [facility] Number for problems [id number] [facility] Accession number [id number] TO [facility] [id number] [facility] Specimen Other Performing Organization Address City/[facility]/ZIP Code Phon e Number [facility] [address] [place] [address] SERVICES CREATININE, URINE RANDOM (05/21/2017 18:20 EDT) Pathologist Sig nature Creatinine, Urn [place] 26.2 mg/dl [facility] Specimen Urine (substance) - Urine Performing Organization Address [facility]/ZIP Code Phon e Number [facility] [address] [place] [address] SERVICES PROTEIN, TOTAL, RANDOM, URINE (05/21/2017 18:20 EDT) Pathologist Sig nature Tot Prot,Ur Random 21 mg/dl [facility] Specimen Urine (substance) - Urine Performing Organization Address [facility] Phon e Number [facility] [address] [place] [address] SERVICES ECHOCARDIOGRAM LIMITED (05/21/2017 18:19 EDT) Specimen Narrative [facility] - 05/22/2017 8:34 EDT *Interpreting Group:* *[facility]* [address] [place] [address] Date of study: 05/21/2017 Transthoracic Echocardiography M-mode, limited 2D, limited spectral Dop pler, and color Doppler *STUDY CONCLUSIONS* Summary: 1. Pericardium, extracardiac: A small pe ricardial effusion was ?? identified circumferential to the he art. It was the largest along to ?? the basal lateral wall of the left v entricle and the adjacent left ?? atrium. *PATIENT PRESENTATION* Height: ? () S/D Pressure: Weight: ? () BSA: Test start time: ??06:19 PM. Test stop time: ??07:33 PM. PERFORMING ?? [facility], [facility] GYM ATTENDANT ??Emilia Corey RDCS *PROCEDURE DATA* Procedure information: ??This study was interpreted by [facility]. Pertin ent images and digital data are archived for permanent storage and are a vailable for subsequent review. Study status: ??STAT. Transthoracic echo cardiography. ??M-mode, limited 2D, limited spectral Doppler, and color Doppler. A Transthoracic Echocardiogram was performed. Scanning w as performed from the parasternal, apical, and subcostal acous tic windows. Images were obtained using an Epiq 13 cardiac ultras ound machine. Image quality was poor. The study was technically limited due to poor acoustic window availability, restricted patient mobilit y, and body habitus. ??Study completion: ??The patient tolerated the procedure well. There were no complications. *INDICATIONS AND HISTORY* Indications: ?? Pericardial Effusion (I3 1.3), known, pre-procedure. *CARDIAC ANATOMY* Pericardium: ??A small pericardial effus ion was identified circumferential to the heart. It was the largest along to the basal lateral wall of the left ventricle and t he adjacent left atrium. Measurements Left ventricle ? Value ?05/21/2017 LV end-diastolic volume, 1-p A2C ? 91 ?ml 122 LV ejection fraction, 1-p A2C ?68 ?% ??70 Legend: (L) ??and ??(H) ??claude values outside sp ecified reference range. I have personally reviewed the images an d have reviewed and edited the reported findings. Electronically signed by Pierre Rubio MD 05/22/2017 08:34 Procedure Note Pierre Rubio MD - 05/22/2017 *Interpreting Group:* *[facility]* [address] [place] [address] Date of study: 05/21/2017 Transthoracic Echocardiography M-mode, limited 2D, limited spectral Dop pler, and color Doppler *STUDY CONCLUSIONS* Summary: 1. Pericardium, extracardiac: A small pe ricardial effusion was identified circumferential to the heart . It was the largest along to the basal lateral wall of the left vent ricle and the adjacent left atrium. *PATIENT PRESENTATION* Height: () S/D Pressure: Weight: () BSA: Test start time: 06:19 PM. Test stop time: 07:33 PM. PERFORMING [facility], [facility] GYM ATTENDANT Emilia Corey RDCS *PROCEDURE DATA* Procedure information: This study was in terpreted by [facility]. Pertin ent images and digital data are archived for permanent storage and are a vailable for subsequent review. Study status: STAT. Transthoracic echoca rdiography. M-mode, limited 2D, limited spectral Doppler, and color Doppler. A Transthoracic Echocardiogram was performed. Scanning w as performed from the parasternal, apical, and subcostal acous tic windows. Images were obtained using an Epiq 13 cardiac ultras ound machine. Image quality was poor. The study was technically limited due to poor acoustic window availability, restricted patient mobilit y, and body habitus. Study completion: The patient tolerated the pr ocedure well. There were no complications. *INDICATIONS AND HISTORY* Indications: Pericardial Effusion (I31.3 ), known, pre-procedure. *CARDIAC ANATOMY* Pericardium: A small pericardial effusio n was identified circumferential to the heart. It was the largest along to the basal lateral wall of the left ventricle and t he adjacent left atrium. Measurements Left ventricle Value 05/21/2017 LV end-diastolic volume, 1-p A2C 91 ml 122 LV ejection fraction, 1-p A2C 68 % 70 Legend: (L) and (H) claude values outside specifie d reference range. I have personally reviewed the images an d have reviewed and edited the reported findings. Electronically signed by Pierre Rubio MD 05/22/2017 08:34 Performing Organization Address City/[facility]/ZIP Code Phon e Number [facility] TSH (05/21/2017 14:02 EDT) Pathologist Sig nature TSH 0.60 0.47 - 4.68 uIU/ml [facility] Specimen Blood Performing Organization Address City/State/ZIP Code Phon e Number [facility] [address] [place] [address] SERVICES T4 FREE (05/21/2017 14:02 EDT) Pathologist Sig nature T4, Free 1.5 0.8 - 2.2 ng/dl [facility] Specimen Blood Performing Organization Address City/[facility]/ZIP Code Phon e Number [facility] [address] [place] [address] SERVICES (ABNORMAL) ELECTROLYTES (05/21/2017 14:02 EDT) Pathologist Sig nature Sodium 116 (LL) 136 - 145 mEq/L [facility] Potassium 4.1 3.5 - 5.0 mEq/L [facility] Chloride 78 (L) 96 - 110 mEq/L [facility] CO2 28 22 - 32 mEq/L [facility] Specimen Blood specimen (specimen) - Blood Performing Organization Address City/State/ZIP Code Phon e Number [facility] [address] [place] [address] SERVICES ECHOCARDIOGRAM (05/21/2017 10:30 EDT) Specimen Narrative [facility] - 05/21/2017 10:48 EDT *Interpreting Group:* *[facility]* [address] [place] [address] Date of study: 05/21/2017 Transthoracic Echocardiography M-mode, complete 2D, complete spectral D oppler, and color Doppler *STUDY CONCLUSIONS* Summary: 1. Left ventricle: The cavity size was n ormal. Wall thickness was ?? increased increased in a pattern of mild to moderate LVH. Systolic ?? function was normal. The estimated e jection fraction was 60-65%. Wall ?? motion was normal; there were no reg ional wall motion abnormalities. 2. Aortic valve: Trileaflet; mildly thic kened, mildly calcified ?? leaflets. There was very mild stenos is. Mean gradient (S): 12mm Hg. ?? Valve area (VTI): 1.9cm^2. Valve are a (Vmax): 2.1cm^2. Valve area ?? (Vmean): 1.9cm^2. 3. Left atrium: The atrium was moderatel y to severely dilated. 4. Right ventricle: The cavity size was normal. Wall thickness was ?? normal. Pacer wire or catheter noted in right ventricle. Systolic ?? function was normal. 5. Inferior vena cava: The vessel was no rmal in size. The respirophasic ?? diameter changes were in the normal range (greater than or equal to ?? 50%), consistent with normal central venous pressure. 6. Pericardium, extracardiac: A moderate , partially loculated ?? pericardial effusion was identified circumferential to the heart. ?? Posterior and lateral to the heart t he effusion measures between ?? 15-[address] change in [address] roke volume was normal. Features ?? were not consistent with tamponade p hysiology. There was a left ?? pleural effusion. *PATIENT PRESENTATION* Height: ? 180.3cm ((71in) ) S/D Pressure: 108 / 72 Weight: ? 108.9kg ((239.5lb) ) BSA: ?2.37m^2 Test start time: ??09:37 AM. Test stop time: ??10:23 AM. ADMITTING ?Akash Reyes MD ATTENDING ?Andres Luis MD PERFORMING ?? [facility], [facility] ORDERING ? Maria Antonia Zimmerman GYM ATTENDANT ??Lizette, Jose G REFERRING ?Katia Mccallum *PROCEDURE DATA* Procedure information: ??The patient was identified by two identifiers. This study was interpreted by [facility]. Pertinent images and digital data are archived for permanent storage and are available for subsequent review. ??Study status: Routine. Transthoracic echocardiography. ??M-mode, complete 2D, complete spectral Doppler, and color Doppler. A T ransthoracic Echocardiogram was performed. Scanning was performed from t he parasternal, apical, subcostal, and suprasternal notch acoust ic windows. Images were obtained using an Epiq 13 cardiac ultrasound mach ine. Image quality was suboptimal. The study was technically li mited due to poor acoustic window availability, poor patient compli ance, and body habitus. Intravenous contrast (Definity) was admi nistered by Jose G Bauer RDCS to enhance delineation of left ventricul ar endocardial borders. Prior to administration at least two (2) contiguo us segments of the left ventricular border were not visualized. Definity amount administered was a total of 3ml. One vial was used. ??Leander dy completion: ??The patient tolerated the procedure well. *INDICATIONS AND HISTORY* Indications: ?? Pericardial Effusion (I3 1.3), known, pre-procedure. *CARDIAC ANATOMY* Left ventricle: ??The cavity size was no rmal. Wall thickness was increased increased in a pattern of mild to moderate LVH. Systolic function was normal. The estimated eject ion fraction was 60-65%. Wall motion was normal; there were no regiona l wall motion abnormalities. The study is not technically sufficient to a llow evaluation of LV diastolic function. Aortic valve: ?? Trileaflet; mildly thic kened, mildly calcified leaflets. Doppler: ?? There was very mild stenosi s. ?? There was no significant regurgitation. ?VTI ratio of LVOT to aortic valve: 0.38. Valve area (VTI): 1.9cm^2. Indexed valve area (VTI) : 0.8cm^2/m^2. Peak velocity ratio of LVOT to aortic valve: 0.44. Jeremiah ve area (Vmax): 2.1cm^2. Indexed valve area (Vmax): 0.9cm^2/m^2. Mean alberto ocity ratio of LVOT to aortic valve: 0.39. Valve area (Vmean): 1.9cm^2 . Indexed valve area (Vmean): 0.8cm^2/m^2. ?Mean gradient (S): 12m m Hg. Peak gradient (S): 23mm Hg. Aorta: ??Aortic root: The aortic root wa s normal in size. Mitral valve: ?? Structurally normal jeremiah ve. ?? Mobility was not restricted. ??Doppler: ??Transvalvular v elocity was within the normal range. There was no evidence for stenosi s. There was no significant regurgitation. ?Peak gradient (D): 5 .5mm Hg. Left atrium: ??The atrium was moderately to severely dilated. Right ventricle: ??The cavity size was n ormal. Wall thickness was normal. Pacer wire or catheter noted in right ve ntricle. Systolic function was normal. Pulmonic valve: ?Doppler: ??Transval vular velocity was within the normal range. There was no evidence for stenosis. There was no significant regurgitation. Tricuspid valve: ?? Structurally normal valve. ?Doppler: ??Transvalvular velocity was within the normal range. Th ere was no evidence for stenosis. There was no significant regur gitation. Pulmonary artery: ?? Pulmonary systolic pressure was within the normal range. Right atrium: ??The atrium was normal in size. Pericardium: ??A moderate, partially loc ulated pericardial effusion was identified circumferential to the heart. Posterior and lateral to the heart the effusion measures between 15-1 8 mm. ??Doppler: ??Respirophasic change in stroke volume was normal. Feat ures were not consistent with tamponade physiology. Systemic veins: Inferior vena cava: The vessel was kelsey l in size. The respirophasic diameter changes were in the normal rang e (greater than or equal to 50%), consistent with normal central tabatha ous pressure. Pleura: ??There was a left pleural effus ion. Measurements Left ventricle ? Value ?Reference LV ID, ED, PLAX ?5.3 ?? cm ? 3.5 - 6.0 LV ID, ES, PLAX ?3.1 ?? cm ? 2.1 - 4.0 LV PW thickness, ED, PLAX ?1.3 ?? cm ? LV end-diastolic volume, 1-p A2C ? 122 ?? ml ? LV ejection fraction, 1-p A2C ?70 ?% ? LV end-diastolic volume, 1-p A4C ? 163 ?? ml ? LV ejection fraction, 1-p A4C ?59 ?% ? LV e', lateral ? 0.069 m/sec ? LV E/e', lateral ? 17 ? LV e', medial ?0.063 m/sec ? LV E/e', medial ?19 ? LV e', average ? 0.066 m/sec ? LV E/e', average ? 18 ? Ventricular septum ? Value ?Reference IVS thickness, ED, PLAX ?1.5 ?? cm ? LVOT ? Value ?Reference LVOT ID, S ? 2.5 ?? cm ? LVOT area ?4.9 ?? cm^2 ? LVOT peak velocity, S ?1.02 ??m/sec ? LVOT mean velocity, S ?0.65 ??m/sec ? LVOT VTI, S ?18.4 ??cm ? LVOT mean gradient, S ?2 ? mm Hg ? Aortic valve ? Value ?Reference Aortic valve peak velocity, S ?2.3 ?? m/sec ? Aortic valve mean velocity, S ?1.66 ??m/sec ? Aortic valve VTI, S ?48.4 ??cm ? Aortic mean gradient, S ?12 ?mm Hg ? Aortic peak gradient, S ?23 ?mm Hg ? VTI ratio, LVOT/AV ? 0.38 ? Aortic valve area, VTI ? 1.9 ?? cm^2 ? Velocity ratio, peak, LVOT/AV ?0.44 ? Aortic valve area, peak velocity ? 2.1 ?? cm^2 ? Velocity ratio, mean, LVOT/AV ?0.39 ? Aortic valve area, mean velocity ? 1.9 ?? cm^2 ? Aortic valve area/bsa, mean velocity ? 0.8 ?? cm^2/m^2 Aorta ?Value ?Reference Aortic root ID ? 3.4 ?? cm ? Left atrium ?Value ?Reference LA ID, A-P, ES ? 4.7 ?? cm ? LA ID/bsa, A-P ? 2.0 ?? cm/m^2 ?? <=2.2 LA area, ES, A4C ? (H) ? 40 ?cm^2 ? 8.8 - 23.4 LA area, ES, A2C ? 42 ?cm^2 ? LA volume, ES, 2-p ? 177 ?? ml ? LA volume/bsa, ES, 2-p ? 75 ?ml/m^2 ?? LA/aortic root ratio ? 1.38 ? Mitral valve ? Value ?Reference Mitral E-wave peak velocity ?1.17 ??m/sec ? Mitral A-wave peak velocity ?1.18 ??m/sec ? Mitral deceleration time ? (H) ? 254 ?? ms ? 150 - 230 Mitral peak gradient, D ?5.5 ?? mm Hg ? Mitral E/A ratio, peak ? 1 ? Legend: (L) ??and ??(H) ??claude values outside sp ecified reference range. I have personally reviewed the images an d have reviewed and edited the reported findings. Electronically signed by Bobby Andrade MD 05/21/2017 10:48 Procedure Note Bobby Andrade MD - 05/21/2017 *Interpreting Group:* *[facility]* [address] [place] [address] Date of study: 05/21/2017 Transthoracic Echocardiography M-mode, complete 2D, complete spectral D oppler, and color Doppler *STUDY CONCLUSIONS* Summary: 1. Left ventricle: The cavity size was n ormal. Wall thickness was increased increased in a pattern of mil d to moderate LVH. Systolic function was normal. The estimated ejec tion fraction was 60-65%. Wall motion was normal; there were no region al wall motion abnormalities. 2. Aortic valve: Trileaflet; mildly thic kened, mildly calcified leaflets. There was very mild stenosis. Mean gradient (S): 12mm Hg. Valve area (VTI): 1.9cm^2. Valve area ( Vmax): 2.1cm^2. Valve area (Vmean): 1.9cm^2. 3. Left atrium: The atrium was moderatel y to severely dilated. 4. Right ventricle: The cavity size was normal. Wall thickness was normal. Pacer wire or catheter noted in right ventricle. Systolic function was normal. 5. Inferior vena cava: The vessel was no rmal in size. The respirophasic diameter changes were in the normal ran ge (greater than or equal to 50%), consistent with normal central ve nous pressure. 6. Pericardium, extracardiac: A moderate , partially loculated pericardial effusion was identified cir cumferential to the heart. Posterior and lateral to the heart the effusion measures between 15-18 mm. Respirophasic change in strok e volume was normal. Features were not consistent with tamponade phys iology. There was a left pleural effusion. *PATIENT PRESENTATION* Height: 180.3cm ((71in) ) S/D Pressure: 108 / 72 Weight: 108.9kg ((239.5lb) ) BSA: 2.37m^2 Test start time: 09:37 AM. Test stop time: 10:23 AM. ADMITTING Akash Reyes MD ATTENDING Andres Luis MD PERFORMING [facility], [facility] ORDERING Maria Antonia Zimmerman GYM ATTENDANT Jose G Bauer Katelyn Doran *PROCEDURE DATA* Procedure information: The patient was i dentified by two identifiers. This study was interpreted by [facility]. Pertinent images and digital data are archived for permanent storage and are available for subsequent review. Study status: Routine. Transthoracic echocardiography. M-mode, complete 2D, complete spectral Doppler, and color Doppler. A T ransthoracic Echocardiogram was performed. Scanning was performed from t he parasternal, apical, subcostal, and suprasternal notch acoust ic windows. Images were obtained using an YAMAPq 13 cardiac ultrasound mach ine. Image quality was suboptimal. The study was technically li mited due to poor acoustic window availability, poor patient compli ance, and body habitus. Intravenous contrast (Definity) was admi nistered by Jose G Bauer RDCS to enhance delineation of left ventricul ar endocardial borders. Prior to administration at least two (2) contiguo us segments of the left ventricular border were not visualized. Definity amount administered was a total of 3ml. One vial was used. Study completion: The patient tolerated the procedure well. *INDICATIONS AND HISTORY* Indications: Pericardial Effusion (I31.3 ), known, pre-procedure. *CARDIAC ANATOMY* Left ventricle: The cavity size was norm al. Wall thickness was increased increased in a pattern of mild to moderate LVH. Systolic function was normal. The estimated eject ion fraction was 60-65%. Wall motion was normal; there were no regiona l wall motion abnormalities. The study is not technically sufficient to a llow evaluation of LV diastolic function. Aortic valve: Trileaflet; mildly thicken ed, mildly calcified leaflets. Doppler: There was very mild stenosis. There was no significant regurgitation. VTI ratio of LVOT to aort ic valve: 0.38. Valve area (VTI): 1.9cm^2. Indexed valve area (VTI) : 0.8cm^2/m^2. Peak velocity ratio of LVOT to aortic valve: 0.44. Jeremiah ve area (Vmax): 2.1cm^2. Indexed valve area (Vmax): 0.9cm^2/m^2. Mean alberto ocity ratio of LVOT to aortic valve: 0.39. Valve area (Vmean): 1.9cm^2 . Indexed valve area (Vmean): 0.8cm^2/m^2. Mean gradient (S): 12mm Hg. Peak gradient (S): 23mm Hg. Aorta: Aortic root: The aortic root was normal in size. Mitral valve: Structurally normal valve. Mobility was not restricted. Doppler: Transvalvular veloc ity was within the normal range. There was no evidence for stenosi s. There was no significant regurgitation. Peak gradient (D): 5.5mm Hg. Left atrium: The atrium was moderately t o severely dilated. Right ventricle: The cavity size was nor mal. Wall thickness was normal. Pacer wire or catheter noted in right ve ntricle. Systolic function was normal. Pulmonic valve: Doppler: Transvalvular v elocity was within the normal range. There was no evidence for stenosis. There was no significant regurgitation. Tricuspid valve: Structurally normal jeremiah ve. Doppler: Transvalvular velocity was within the normal range. Th ere was no evidence for stenosis. There was no significant regur gitation. Pulmonary artery: Pulmonary systolic pre ssure was within the normal range. Right atrium: The atrium was normal in s ize. Pericardium: A moderate, partially locul ated pericardial effusion was identified circumferential to the heart. Posterior and lateral to the heart the effusion measures between 15-1 8 mm. Doppler: Respirophasic change in stroke volume was normal. Feat ures were not consistent with tamponade physiology. Systemic veins: Inferior vena cava: The vessel was kelsey l in size. The respirophasic diameter changes were in the normal rang e (greater than or equal to 50%), consistent with normal central tabatha ous pressure. Pleura: There was a left pleural effusio n. Measurements Left ventricle Value Reference LV ID, ED, PLAX 5.3 cm 3.5 - 6.0 LV ID, ES, PLAX 3.1 cm 2.1 - 4.0 LV PW thickness, ED, PLAX 1.3 cm ------ ---- LV end-diastolic volume, 1-p A2C 122 ml LV ejection fraction, 1-p A2C 70 % ---- ------ LV end-diastolic volume, 1-p A4C 163 ml LV ejection fraction, 1-p A4C 59 % ---- ------ LV e', lateral 0.069 m/sec LV E/e', lateral 17 LV e', medial 0.063 m/sec LV E/e', medial 19 LV e', average 0.066 m/sec LV E/e', average 18 Ventricular septum Value Reference IVS thickness, ED, PLAX 1.5 cm -------- -- LVOT Value Reference LVOT ID, S 2.5 cm LVOT area 4.9 cm^2 LVOT peak velocity, S 1.02 m/sec ------ ---- LVOT mean velocity, S 0.65 m/sec ------ ---- LVOT VTI, S 18.4 cm LVOT mean gradient, S 2 mm Hg --------- - Aortic valve Value Reference Aortic valve peak velocity, S 2.3 m/sec Aortic valve mean velocity, S 1.66 m/se c Aortic valve VTI, S 48.4 cm Aortic mean gradient, S 12 mm Hg ------ ---- Aortic peak gradient, S 23 mm Hg ------ ---- VTI ratio, LVOT/AV 0.38 Aortic valve area, VTI 1.9 cm^2 ------- --- Velocity ratio, peak, LVOT/AV 0.44 ---- ------ Aortic valve area, peak velocity 2.1 cm ^2 Velocity ratio, mean, LVOT/AV 0.39 ---- ------ Aortic valve area, mean velocity 1.9 cm ^2 Aortic valve area/bsa, mean velocity 0. 8 cm^2/m^2 Aorta Value Reference Aortic root ID 3.4 cm Left atrium Value Reference LA ID, A-P, ES 4.7 cm LA ID/bsa, A-P 2.0 cm/m^2 <=2.2 LA area, ES, A4C (H) 40 cm^2 8.8 - 23.4 LA area, ES, A2C 42 cm^2 LA volume, ES, 2-p 177 ml LA volume/bsa, ES, 2-p 75 ml/m^2 ------ ---- LA/aortic root ratio 1.38 Mitral valve Value Reference Mitral E-wave peak velocity 1.17 m/sec Mitral A-wave peak velocity 1.18 m/sec Mitral deceleration time (H) 254 ms 150 - 230 Mitral peak gradient, D 5.5 mm Hg ----- ----- Mitral E/A ratio, peak 1 Legend: (L) and (H) claude values outside specifie d reference range. I have personally reviewed the images an d have reviewed and edited the reported findings. Electronically signed by Bobby Andrade MD 05/21/2017 10:48 Performing Organization Address City/State/ZIP Code Phon e Number [facility] (ABNORMAL) ELECTROLYTES (05/21/2017 9:55 EDT) Pathologist [facility] Sodium 117 (LL) 136 - 145 mEq/L [facility] Potassium 3.7 3.5 - 5.0 mEq/L [facility] Chloride 77 (L) 96 - 110 mEq/L [facility] CO2 30 22 - 32 mEq/L [facility] Specimen Blood specimen (specimen) - Blood Performing Organization Address City/[facility] Phon e Number [facility] [address] [place] [address] SERVICES EKG 12-LEAD (05/21/2017 7:12 EDT) Specimen Narrative [facility] EKG - 05/23/2017 15:0 4 EDT ? [facility] ? Test Date: ?2017-05-21 Pat Name: ? DAVID MERA ?Department: ?? [facility] 5 ? Room: ? MW531 Gender: ? M ?[place] Tour Guide: ?? [id number] : ?1950 ? Requested By: PRDAIP MONET Order Number: [id number] ? Reading MD: ?? SENG PERSON SA MD ? Measurements Intervals ?[place] ? Rate: ? 75 ? P: ?31 SC: ? 173 ?QRS: ?-73 QRSD: ? 183 ?T: ?174 QT: ? 527 ? QTc: ?590 ? Interpretive Statements ELECTRONIC VENTRICULAR PACEMAKER ABNORMAL RHYTHM ECG Automated Interpretation. ??Provider Int erpretation to follow. Compared to ECG 05/21/2017 01:25:47 Sinus rhythm no longer present I reviewed the tracing and have either a greed or edited the findings in this report. Electronically Signed On 15:04:53 EDT by SENG PERSON SA, MD. Procedure Note Seng Brody Sa, MD - 05/23/[address] [facility] Test Date: 2017-05-21 Pat Name: DAVID MERA Department: BUD Chao Room: [facility] Gender: M [employer] Tour Guide: [id number] : 1950 Requested By: PRADIP MANNING Order Number: [id number] Martha MD: Nithya PERSON SA, MD Measurements Intervals [place] Rate: 75 P: 31 SC: 173 QRS: -73 QRSD: 183 T: 174 QT: 527 QTc: 590 Interpretive Statements ELECTRONIC VENTRICULAR PACEMAKER ABNORMAL RHYTHM ECG Automated Interpretation. Provider Inter pretation to follow. Compared to ECG 05/21/2017 01:25:47 Sinus rhythm no longer present I reviewed the tracing and have either a greed or edited the findings in this report. Electronically Signed On 15:04:53 EDT by SENG PERSON SA, MD. Performing Organization Address City/State/ZIP Code Phon e Number [facility] INPATIENT ADD-ON (05/21/2017 6:55 EDT) Pathologist Sig nature Tests to be added MAGNESIUM [facility] Number for problems [id number] [facility] Accession number [id number] [facility] Specimen Other Performing Organization Address City/State/ZIP Code Phon e Number [facility] [address] [place] [address] SERVICES INPATIENT ADD-ON (05/21/2017 6:40 EDT) Pathologist Sig nature Tests to be added ALT,ALK [facility] PHOS,AST,TOTAL LABORATORY SERVICES BILI,ALBUMIN Number for problems [id number] [facility] Accession number [id number] [facility] Specimen Other Performing Organization Address City/[facility]/ZIP Code Phon e Number [facility] [address] [place] [address] SERVICES MAGNESIUM (05/21/2017 5:57 EDT) Pathologist Sig nature Magnesium 1.8 1.7 - 2.8 mg/dl [facility] Specimen Blood Performing Organization Address City/[facility]/ZIP [facility] Phon e Number [facility] [address] [place] [address] SERVICES BILIRUBIN, TOTAL (05/21/2017 5:57 EDT) Pathologist Sig nature Bilirubin, Total 0.6 <1.4 mg/dl [facility] Specimen Blood Performing Organization Address [facility]/ZIP [facility] Phon e Number [facility] [address] [place] [address] SERVICES AST (05/21/2017 5:57 EDT) Pathologist Sig nature AST 33 15 - 46 U/L [facility] Specimen Blood Performing Organization Address City/[facility]/ZIP Code Phon e Number [facility] [address] [place] [address] SERVICES ALT (05/21/2017 5:57 EDT) Pathologist Sig nature ALT 39 21 - 72 U/L [facility] Specimen Blood Performing Organization Address City/[facility]/ZIP Code Phon e Number [facility] [address] [place] [address] SERVICES ALKALINE PHOSPHATASE (05/21/2017 5:57 EDT) Pathologist Sig nature Total Alkaline 81 38 - 126 U/L [facility] Phosphatase LABORATORY SERVICES Specimen Blood Performing Organization Address City/[facility]/ZIP Code Phon e Number [facility] [address] [place] [address] SERVICES (ABNORMAL) ALBUMIN (05/21/2017 5:57 EDT) Pathologist Sig nature Albumin 3.0 (L) 3.4 - 4.9 g/dl [facility] ORY SERVICES Specimen Blood Performing Organization Address City/[facility]/ZIP Code Phon e Number [facility] [address] [place] [address] SERVICES (ABNORMAL) ELECTROLYTES (05/21/2017 5:57 EDT) Pathologist Sig nature Sodium 117 (LL) 136 - 145 mEq/L [facility] Potassium 3.5 3.5 - 5.0 mEq/L [facility] Chloride 76 (L) 96 - 110 mEq/L [facility] CO2 31 22 - 32 mEq/L [facility] Specimen Blood specimen (specimen) - Blood Performing Organization Address [facility] Phon e Number [facility] [address] [place] [address] SERVICES (ABNORMAL) PROTIME (05/21/2017 5:57 EDT) Pro Time 16.3 (H)Comment: NOTE 10.3 - 13.4 [facility] NEW REFERENCE RANGE secs LABORATORY SERVICE S OF APR 03 2017 I.N.R. 1.4 (H) 0.9 - 1.1 [facility] Comment: Ratio LABORATORY SERVICES Moderate Intensity Coumadin INR = 2.0-3.0 Adjustments in anticoagulant therapy dose should be based upon the INR and NOT the Pro Time. Specimen Blood specimen (specimen) - Blood Performing Organization Address [facility] Phon e Number [facility] [address] [place] [address] SERVICES HIV 1/2 ANTIGEN AND ANTIBODY, 4TH GENERATION (05/21/2017 5:57 EDT) Pathologist [facility] HIV 1/2 Antibody Negative Negative [facility] Comment: LABORATORY SERVICES Fourth generation assay performed on the Siemens Centaur. If acute HIV-1 infection is suspected in a high risk patient, submit plasma specimen for HIV-1 RNA quantification test. Specimen Blood specimen (specimen) - Blood Performing Organization Address [facility]/ZIP [facility] Phon e Number [facility] [address] [place] [address] SERVICES (ABNORMAL) BUN (05/21/2017 5:57 EDT) Pathologist Sig nature BUN 5 (L) 10 - 26 mg/dl [facility]Y SERVICES Specimen Blood specimen (specimen) - Blood Performing Organization Address [facility] Phon e Number [facility] [address] [place] [address] SERVICES (ABNORMAL) CREATININE (05/21/2017 5:57 EDT) Creatinine 0.43 (L) 0.66 - 1.25 [facility] mg/dl LABORATORY SERVICES GFR, Calculated 120 >60 [facility] Comment: ml/min/1.73m2 LABORATORY eGFR calculated using CKD-EPI equation for SERVICES non Americans. Multiply eGFR by 1.16 for Americans. Specimen Blood specimen (specimen) - Blood Performing Organization Address City/State/ZIP Code Phon e Number [facility] [address] [place] [address] SERVICES (ABNORMAL) HEMAGRAM AND DIFFERENTIAL (05/21/2017 5:57 EDT) Pathologist Sig nature WBC 6.90 4.0 - 10.4 [facility] LABORATORY SERVICES RBC 3.25 (L) 4.36 - 5.78 [facility] LABORATORY SERVICES Hemoglobin 10.9 (L) 13.8 - 17.3 [facility] gm/dl LABORATORY SERVICES HCT 29.7 (L) 39.5 - 50.2 % [facility] MCV 91 81 - 95 fl [facility] MCH 33.5 (H) 27.6 - 33.0 pg [facility] MCHC 36.7 (H) 32.8 - 36.4 [facility] gm/dl LABORATORY SERVICES RDW-CV 10.6 <14.2 % [facility] RDW-SD 36.1 <46.0 fl [facility] PLT 266 141 - 377 K/[facility] LABORATORY SERVICES MPV 10.7 9.5 - 12.7 fl [facility] Neutrophils 61.6 % [facility] Lymphocytes 19.0 % [facility] Monocytes 16.7 % [facility] Eosinophils 1.6 % [facility] Basophils 0.7 % [facility] Immature Grans 0.4 % [facility] ABS Neutrophils 4.25 2.20 - 8.85 [facility] LABORATORY SERVICES ABS Lymphs 1.31 1.09 - 3.30 [facility] LAB[facility]ORY SERVICES ABS Monocytes 1.15 (H) 0.1 - 0.8 K/[facility] LABORATORY SERVICES ABS Eosinophils 0.11 0.03 - 0.61 [facility] LABORATORY SERVICES ABS Basophils 0.05 0.01 - 0.11 [facility] K[facility] LABORATORY SERVICES ABS Immature Grans 0.03 0 - 0.06 /[facility] LABORATORY SERVICES Type of Diff: Automated [facility] Specimen Blood specimen (specimen) - Blood Performing Organization Address [facility]/ZIP [facility] Phon e Number [facility] [address] [place] [address] SERVICES (ABNORMAL) ELECTROLYTES (05/21/2017 3:28 EDT) Pathologist Sig nature Sodium 116 (LL) 136 - 145 mEq/L [facility] Potassium 3.3 (L) 3.5 - 5.0 mEq/L [facility] Chloride 77 (L) 96 - 110 mEq/L [facility] CO2 31 22 - 32 mEq/L [facility] Specimen Blood specimen (specimen) - Blood Performing Organization Address City/[facility] Phon e Number [facility] [address] [place] [address] SERVICES EKG 12-LEAD (05/21/2017 1:25 EDT) Specimen Narrative [facility] E[facility] - 05/23/2017 10:3 5 EDT ? [facility] ? Test Date: ?2017-05-21 Pat Name: ? DAVID MERA ?Department: ?? [facility] 5 ? Room: ? MW531 Gender: ? M ?[place] Tour Guide: ?? [id number] : ?1950 ? Requested By: PRADIP MONET Order Number: [id number] ? Reading : ?? PIERRE RUBIO MD ? Measurements Intervals ?[place] ? Rate: ? 75 ? P: ?13 SC: ? 160 ?QRS: ?-81 QRSD: ? 185 ?T: ?171 QT: ? 495 ? QTc: ?556 ? Interpretive Statements SINUS RHYTHM WITH ATRIAL TRACKING and VE NTRICULAR PACING Compared to ECG 05/03/2017 04:23:33 No significant changes I reviewed the tracing and have either a greed or edited the findings in this report. Electronically Signed On 8 10:35:38 EDT by PIERRE RUBIO MD. 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 Electronically Signed On 10:35:38 EDT by PIERRE RUBIO MD. Performing Organization Address [facility]/ZIP Code Phon e Number [facility] EKG INPATIENT ADD-ON (05/21/2017 0:00 EDT) Pathologist Sig nature Tests to be added URINE OSM [facility] Number for problems Not Given [facility] Accession number [id number] [facility] Specimen Other Performing Organization Address [facility] Phon e Number [facility] [address] [place] [address] SERVICES OSMOLALITY, URINE (05/20/2017 23:45 EDT) Pathologist Sig nature Osmolality, Ur 251 150 - 1,150 mos/kg [facility] Specimen Urine Performing Organization Address [facility] Phon e Number [facility] [address] [place] [address] SERVICES SODIUM, URINE RANDOM (05/20/2017 23:45 EDT) Pathologist Sig nature Sodium, Ur 18.0 mEq/L [facility] Specimen Urine (substance) - Urine Performing Organization Address [facility] Phon e Number [facility] [address] [place] [address] SERVICES CREATININE, URINE RANDOM (05/20/2017 23:45 EDT) Pathologist Sig nature Creatinine, Urn [place] 43.1 mg/dl [facility] Specimen Urine (substance) - Urine Performing Organization Address City/State/ZIP Code Phon e Number [facility] [address] [place] [address] SERVICES POCT US CARDIAC (05/20/2017 22:45 EDT) Anatomical Region Laterality Modality Other Specimen Narrative [facility] - 05/20/2017 23:51 EDT [facility] - Ultrasound Exam Date: 05/20/2017 Exam Type: POCT US CARDIAC Securities Counselor: Laly Kim MD Attending: Laly Kim MD Worksheet: POCUS_Cardiac Exam Information: Exam Type: ?? Clinically indicated Indication(s) for Exam: ?? The exam was performed with the foll owing indications: Dyspnea Views Obtained ?? The pericardial sac, myocardium, 4 c hambers, and IVC were identified using the following views: AL L OF THE VIEWS ABOVE WERE OBTAINED, Difficult study with limited w indows Findings: ?? Pericardial Effusion: Large pericard ial effusion ?? Cardiac activity: Cardiac activity n ormal ?? LV function: Normal (> 50% EF) ?? RV diameter: Normal ?? Other signs of RV strain ?? IVC collapsibility: High collapsibil ity (>50%) Interpretation: ?? Normal limited cardiac ultrasound ?? Pericardial effusion ?? Pericardial tamponade ?? Diminished LV function ?? RV strain ?? Cardiac standstill ?? Indeterminate Confirmatory study: ?? What confirmatory study was done?: N ot applicable Physician Signature: ?? I review and approve of the document ation above.: Signed by Laly Kim MD on May 20 018 at 11:50:56 PM This exam was performed and interpreted by the [facility] ED Staff Procedure Note Laly Kim MD - 05/20/2017 [facility] - Ultrasoun d Exam Date: 05/20/2017 Exam Type: POCT US CARDIAC Securities Counselor: Laly Kim MD Attending: Laly Kim MD Worksheet: POCUS_Cardiac Exam Information: Exam Type: Clinically indicated Indication(s) for Exam: The exam was performed with the followi ng indications: Dyspnea Views Obtained The pericardial sac, myocardium, 4 ganga bers, and IVC were identified using the following views: AL L OF THE VIEWS ABOVE WERE OBTAINED, Difficult study with limited w indows Findings: Pericardial Effusion: Large pericardial effusion Cardiac activity: Cardiac activity norm al LV function: Normal (> 50% EF) RV diameter: Normal Other signs of RV strain IVC collapsibility: High collapsibility (>50%) Interpretation: Normal limited cardiac ultrasound Pericardial effusion Pericardial tamponade Diminished LV function RV strain Cardiac standstill Indeterminate Confirmatory study: What confirmatory study was done?: Not applicable Physician Signature: I review and approve of the documentati on above.: Signed by Laly Kim MD on May 20 018 at 11:50:56 PM This exam was performed and interpreted by the [facility] ED Staff Performing Organization Address City/State/ZIP Code Phon e Number [facility] (ABNORMAL) BASIC METABOLIC PANEL (BMP) (05/20/2017 22:40 EDT) Sodium 116 (LL) 136 - 145 [facility] mEq/L LABORATORY SERVICES Potassium 3.6 3.5 - 5.0 [facility] mEq/L LABORATORY SERVICES Chloride 74 (L) 96 - 110 [facility] mEq/L LABORATORY SERVICES CO2 32 22 - 32 mEq/L [facility] BUN 6 (L) 10 - 26 mg/dl [facility] Creatinine 0.44 (L) 0.66 - 1.25 [facility] mg/dl LABORATORY SERVICES GFR, Calculated 119 >60 [facility] Comment: ml/min/1.73m2 LABORATORY eGFR calculated using CKD-EPI equation for SERVICES non Americans. Multiply eGFR by 1.16 for Americans. Calcium 8.7 8.5 - 10.5 [facility] mg/dl LABORATORY SERVICES Calculated Calcium 9.2 8.5 - 10.5 [facility] mg/dl LABORATORY SERVICES Glucose, Serum 108 (H) 70 - 100 [facility] mg/dl LABORATORY SERVICES Fasting? Unknown [facility] Specimen Blood specimen (specimen) - Blood Performing Organization Address City/State/ZIP Code Phon e Number [facility] [address] [place] [address] SERVICES documented in this encounter Visit Diagnoses Diagnosis Hyponatremia Hyposmolality and/or hyponatremia Pericardial effusion Unspecified disease of pericardium Heart block Conduction disorder, unspecified Acute on chronic diastolic congestive he art failure (HCC-CMS) (HCC) Acute on chronic diastolic heart failure Acute pericarditis, unspecified type documented in this encounter Administered Medications Inactive Administered Medications - up to 3 most recent administrations Medication Order MAR Action Action Date Dose Rate Site acetaminophen (TYLENOL) tablet 650 Given 05/25/2017 10:25 EDT 65 0 mg mg 650 mg, oral, EVERY 4 HOURS PRN, Starting on Fri05/21/17 at 0126, Until Fri05/27/17 at 1651, Pain, Routine Given 05/21/2017 21:11 EDT 650 mg bacitracin injection Given 05/21/2017 19:06 EDT 50,000 Units Left Ch est topical, PRN, Starting on Fri05/21/17 at 1906, Until Fri05/21/17 at 1906, Routine ceFAZolin (ANCEF) 2 g in sodium chloride 0.9% 50 Given 05/22 16:09 EDT 2 g mL IVPB 2 g, intravenous, Administer over 30 Minutes, EVERY 8 HOURS, 3 doses, First dose on [place] 05/22/17 at 0000, Last dose on [place] 05/22/17 at 1600, Routine, Postprocedure Given 05/22/2017 8:20 EDT 2 g Given 05/22/2017 0:02 EDT 2 g ceFAZolin (ANCEF) injection Given 05/21/2017 16:58 EDT 2 g intravenous, PRN, Starting on Fri05/21/17 at 1658, Until Fri05/21/17 at 1658, Routine chlorhexidine gluconate 2 % cloth 1 Each 1 Each, topical, PRE-OP MULTIPLE, 2 dose s, Starting on Fri05/21/17 at 1622, Until Fri05/27/17 at 1651, Other, Pre-Procedure, Routine colchicine (COLCRYS) tablet 0.6 mg Given 05/27/2017 9:47 EDT 0.6 mg 0.6 mg, oral, 2 TIMES DAILY, First dose on Fri05/27/17 at 0915, Until Discontinued, STAT fentaNYL citrate (PF) 50 mcg/mL injectio n Given 05/21/2017 18:05 EDT 25 mcg intravenous, PRN, Starting on Fri05/21/17 at 1657, Until Fri05/21/17 at 1805, Routine Given 05/21/2017 17:48 EDT 25 mcg Given 05/21/2017 17:22 EDT 25 mcg ibuprofen (MOTRIN) tablet 600 mg Given 05/26/2017 18:56 EDT 600 mg 600 mg, oral, EVERY 6 HOURS, 2 doses, First dose on Fri05/26/17 at 1900, Last dose on Fri05/27/17 at 0100, Routine ibuprofen (MOTRIN) tablet 600 mg Given 05/27/2017 13:24 EDT 600 mg 600 mg, oral, 3 TIMES DAILY, First dose on Fri05/27/17 at 0915, Until Discontinued, Routine Given 05/27/2017 9:47 EDT 600 mg ketOROLAC (TORADOL) injection 15 mg Given 05/25/2017 4:01 EDT 15 mg 15 mg, intravenous, EVERY 6 HOURS, 20 doses, First dose on Fri05/21/17 at 2030, Last dose on Fri05/26/17 at 1430, Routine, Postprocedure Given 05/24/2017 20:36 EDT 15 mg Given 05/24/2017 15:37 EDT 15 mg magnesium sulfate 2 g in water 50 mL Given 05/21/2017 8:10 EDT 2 g 2 g, intravenous, Administer over 30 Minutes, NOW X1, 1 dose, On Fri05/21/17 at 0830, Routine magnesium sulfate 2 g in water 50 mL Given 05/23/2017 8:48 EDT 2 g 2 g, intravenous, Administer over 30 Minutes, NOW X1, 1 dose, On Fri05/23/17 at 0815, Routine midazolam (PF) (VERSED) 1 mg/mL injectio n Given 05/21/2017 18:37 EDT 1 mg intravenous, PRN, Starting on Fri05/21/17 at 1657, Until Fri05/21/17 at 1837, Routine Given 05/21/2017 18:05 EDT 1 mg Given 05/21/2017 17:48 EDT 1 mg potassium chloride (KLOR-CON) packet 40 mEq Given 05/23/2017 12:17 EDT 40 mEq 40 mEq, oral, NOW X1, 1 dose, On Fri05/23/17 at 1215, STAT potassium chloride SA (K-DUR, KLOR-CON) tablet Given 018 8:11 EDT 20 mEq 20 mEq 20 mEq, oral, NOW X1, 1 dose, On Fri05/21/17 at 0715, Routine sodium chloride 0.9 % (NS) infusion New Bag 05/21/2017 4:22 EDT 75 mL/hr at 75 mL/hr, intravenous, CONTINUOUS, Starting on Fri05/21/17 at 0430, Until Fri05/21/17 at 0819, Routine sodium chloride 0.9 % (NS) New Bag 05/21/2017 18:24 EDT 100 mL/hr 100 mL/hr infusion intravenous, FA IP EQF CONTINUOUS PRN FOR ONE STEP MEDS, Starting on Fri05/21/17 at 1650, Until Fri05/21/17 at 1824, Routine New Bag 05/21/2017 16:50 EDT 100 mL/hr 100 mL/hr sodium chloride 0.9 % BOLUS 1,000 mL New Bag 05/20/2017 23:49 EDT 1,000 mL 1,000 mL, intravenous, NOW X1, 1 dose, On Fri05/20/17 at 2345, STAT sodium chloride 0.9 % flush 3 mL Given 05/27/2017 8:22 EDT 3 mL 3 mL, intravenous, EVERY 8 HOURS, First dose on Fri05/21/17 at 0145, Until Discontinued, Routine Given 05/26/2017 22:00 EDT 3 mL Given 05/26/2017 17:05 EDT 3 mL torsemide (DEMADEX) tablet 10 mg Given 05/22/2017 8:19 EDT 10 mg 10 mg, oral, DAILY, First dose on Fri05/22/17 at 0900, Until Discontinued, Routine torsemide (DEMADEX) tablet 20 mg Given 05/22/2017 15:13 EDT 20 mg 20 mg, oral, NOW X1, 1 dose, On Fri05/22/17 at 1415, STAT torsemide (DEMADEX) tablet 40 mg Given 05/23/2017 10:25 EDT 40 mg 40 mg, oral, DAILY, First dose (after last modification) on Fri05/23/17 at 0900, Until Discontinued, Routine torsemide (DEMADEX) tablet 40 mg Given 05/23/2017 17:14 EDT 40 mg 40 mg, oral, 2 TIMES DAILY WITH BREAKFAST & DINNER, First dose (after last modification) on Fri05/23/17 at 1700, Until Discontinued, Routine torsemide (DEMADEX) tablet 40 mg Given 05/25/2017 8:08 EDT 40 mg 40 mg, oral, DAILY, First dose on 05/24/17 at 1030, Until Discontinued, Routine Given 05/24/2017 10:38 EDT 40 mg torsemide (DEMADEX) tablet 40 mg Given 05/24/2017 20:35 EDT 40 mg 40 mg, oral, NOW X1, 1 dose, On 05/24/17 at 1900, Routine torsemide (DEMADEX) tablet 40 mg Given 05/27/2017 8:21 EDT 40 mg 40 mg, oral, 2 TIMES DAILY WITH BREAKFAST & DINNER, First dose (after last modification) on 05/25/17 at 1700, Until Discontinued, Routine Given 05/26/2017 17:23 EDT 40 mg Given 05/26/2017 8:29 EDT 40 mg documented in this encounter Discontinued Medications Medication Sig Discontinue Reason Start Date End Date amLODIPine (NORVASC) 10 Take 1 Tab by Alternate therapy 05/04/2017 05/20/2017 mg tablet mouth daily. chlorthalidone (HYGROTON) Take 1 Tab by Alternate therapy 8 05/20/2017 25 mg tablet mouth daily. lisinopril (PRINIVIL, Take 5 mg by Patient Stopped Taking 05/27/2017 ZESTRIL) 5 mg tablet mouth daily. furosemide (LASIX) 40 mg Take 40 mg by Patient Stopped Taking 05/27/2017 tablet mouth daily. documented as of this encounter Historical Medications This list may reflect changes made after this encounter. Medication Sig Dispensed Refills Start Date End Date acetaminophen (TYLENOL) 500 Take 1,000 mg by 0 mg tablet mouth 2 times daily. lisinopril (PRINIVIL, Take 5 mg by mouth 0 05/27/2017 ZESTRIL) 5 mg tablet daily. furosemide (LASIX) 40 mg Take 40 mg by 0 05/27/2017 tablet mouth daily. added in this encounter Active and Recently Administered Medications Times are shown in EDT. Scheduled Medication Order 05/25/2017 05/26/2017 05/27/2017 colchicine (COLCRYS) tablet 0.6 mg 0947 (Given - Provider: Rupert Earl, RN) 0.6 mg, oral, 2 TIMES DAILY, First dose on 05/27/17 at 0915, Until Discontinued, STAT ibuprofen (MOTRIN) tablet 600 mg (CANCELED) 1856 (Given - Provider: Rupert Earl RN) 0046 (Not Given - Provider: Omayra mason RN - Reason: Patient/family refused) 600 mg, oral, EVERY 6 HOURS, 2 doses, Fi rst dose on Fri05/26/17 at 1900, Last dose on Fri05/27/17 at 0100, Routine ibuprofen (MOTRIN) tablet 600 mg 0947 (Given - Provider: Rupert Earl RN)1324 (Given - Provider: Rupert Earl RN) 600 mg, oral, 3 TIMES DAILY, First dose on Fri05/27/17 at 0915, Until Discontinued, Routine ketOROLAC (TORADOL) injection 15 mg (CANCELED) 0401 (G iven - Provider: Sigrid Gordon, TISH) 15 mg, intravenous, EVERY 6 HOURS, 20 do ses, First dose on Fri05/21/17 at 2030, Last dose on Fri05/26/17 at 1430, Routine sodium chloride 0.9 % flush 3 mL 0809 (Given - Provide r: Rupert Earl RN)1513 (Given - Provider: Rupert Earl RN)2230 (Given - Provider: Omayra Farley RN) 0831 (Given - Provider: Rupert Earl RN)1705 (Given - Provider: Rupert Earl RN)2200 (Given - Provider: Omayra Farley RN) 0822 (Given - Provider: Rupert Earl RN) 3 mL, intravenous, EVERY 8 HOURS, First dose on Fri05/21/17 at 0145, Until Discontinued, Routine torsemide (DEMADEX) tablet 40 mg (CANCELED) 0808 (Give n - Provider: Rupert Earl RN) 40 mg, oral, DAILY, First dose on Fri at 1030, Until Discontinued, Routine torsemide (DEMADEX) tablet 40 mg 1633 (Given - Provider: Jak Earl RN) 0829 (Given - Provider: Rupert Earl RN)1723 (Given - Provider: Rupert Earl RN) 0821 (Given - Provider: Rupert Earl RN) 40 mg, oral, 2 TIMES DAILY WITH BREAKFAS T & DINNER, First dose on 05/25/17 at 1700, Until Discontinued, Routine PRN Medication Order 05/25/2017 05/26/2017 05/27/2017 acetaminophen (TYLENOL) tablet 650 mg 1025 (Given - Pr ovider: Rupert Earl RN) 650 mg, oral, EVERY 4 HOURS PRN, Startin g Fri05/21/17 at 0126, Until Fri05/27/17 at 1651, Pain, Routine chlorhexidine gluconate 2 % cloth 1 Each 1 Each, topical, PRE-OP MULTIPLE, 2 dose s, Starting Fri05/21/17 at 1622, Until Fri05/27/17 at 1651, Other, Pre-Procedure, Routine documented in this encounter Orders Medications Ordered That Might Not Have Count Last Ord ered Date First Ordered Date Been Administered potassium chloride infusion 20 mEq 1 05/23/2017 enoxaparin (LOVENOX) injection 40 mg 1 05/22/2017 torsemide (DEMADEX) tablet 20 mg 1 05/22/2017 chlorhexidine gluconate 2 % cloth 1 Each 1 018 Procedures Count Last Ordered Date First Ordered Date ECG REPORT - SCANNED 11 06/02/2017 05/23/2017 Diet Count Last Ordered Date First Ordered Date DISCHARGE DIET 3 05/27/2017 Nursing Count Last Ordered Date First Ordered Date BATHING INSTRUCTIONS 1 05/27/2017 WOUND CARE INSTRUCTIONS 2 05/27/2017 BEDREST 1 05/21/2017 CONTRAINDICATION TO ANTICOAGULATION 1 05/21/2017 THERAPY MEASURE WEIGHT 1 05/21/2017 PERICARDIOCENTESIS TRAY TO BEDSIDE 1 05/21/2017 VTE PHARMACOLOGIC PROPHYLAXIS CURRENTLY 1 05/22/19 18 ORDERED OR ON ALTERNATIVE THER ED TELEMETRY MONITORING 1 05/20/2017 INSERT SALINE LOCK 1 05/20/2017 Consult Count Last Ordered Date First Ordered Date CONSULT PACER/AICD/DEVICE CHK 1 05/21/2017 Respiratory Care Count Last Ordered Date First Ordered Date AIRWAY CLEARANCE THERAPY 3 05/26/2017 018 INCENTIVE SPIROMETRY RT 3 05/26/2017 Admission Count Last Ordered Date First Ordered Date STATUS: INPATIENT ACUTE ADMISSION 1 05/21/2017 ED BED REQUEST 1 05/20/2017 Transfer Count Last Ordered Date First Ordered Date NOTIFY PPS OF DISCHARGE COMPLETE 1 05/27/2017 CHANGE ATTENDING TO: 3 05/26/2017 05/21/2017 PPS NOTIFICATION OF PATIENT ARRIVAL ON 8 UNIT UR PATIENT STATUS CHANGE 1 05/21/2017 Discharge Count Last Ordered Date First Ordered Date DISCHARGE PATIENT 1 05/27/2017 Legal Count Last Ordered Date First Ordered Date MISCELLANEOUS DISCHARGE INSTRUCTIONS 2 05/27/2017 documented in this encounter Care Teams Ship'S Master Relationship Specialty Start Date End Date Katia Mccallum PA-C PCP - General 05/02/[address] [place] [id number] documented as of this encounter
--- OUTSIDE RECORDS SUMMARY | 2021-09-28 02:21 | XMS_ITS | Encounter Summary ---
:1950 Author Organization [facility] Address [address] [place] [address] Care Team Providers Name Role Phone Katia Mccallum PA-C Primary Care Provider [phone] Reason for Referral Consult (Routine) - New Request Specialty Diagnoses / Procedures Referred By Contact Refer red To Contact Diagnoses Heart failure, unspecified HF chronicity, unspecified heart failure type (HCC- CMS) (HCC) Subacute effusive constrictive pericarditis Michael Pratt MD [facility] [place] [address] Referral ID Status Reason Start Expiration Visits Visits Date Date Requested Authorized [id number] New Request Specialty 06/16/2017 1 1 Services Required Question Answer Reason for Request: f/u constrictive pericarditi s Expected Discharge Date (Inpatient Only): 06/16/2017 Practice Site (External Referral Only): [facility] Comments With Dr. Torres ollow Up (3 - 10 Business Days) - Receiving Office to Obtain Authorization Specialty Diagnoses / Procedures Referred By Contact Refer red To Contact Diagnoses Heart failure, unspecified HF chronicity, unspecified heart failure type (HCC- CMS) (HCC) Subacute effusive constrictive pericarditis Bg Atwood MD [address] [facility] [address] [place] [address] Referral ID Status Reason Start Expiration Visits Visits Date Date Requested Authorized [id number] Receiving Office Continuity of 1 1 to Obtain Care 8 Authorization Question Answer Reason for Request: f/u hospitalization for cons trictive pericarditis Expected Discharge Date (Inpatient 06/16/2017 Only): eferral (Routine/Next Available) - New Request Specialty Diagnoses / Procedures Referred By Contact Refer red To Contact Diagnoses Heart failure, unspecified HF chronicity, unspecified heart failure type (HCC- CMS) (HCC) Subacute effusive constrictive pericarditis Bg Atwood, - [address] [facility] [address] [facility] [address] [address] [place] [address] Referral ID Status Reason Start Expiration Visits Visits Date Date Requested Authorized [id number] New Request Specialty 06/16/2017 1 1 Services Required Question Answer I certify that this patient is under my 06/16/2017 care and that I, or another Medicare allowed practitioner (DO CHAMP, PACHECO) working with me, had a slyo-aj-ufpt encounter with this patient on this date: I further certify that the zrsc-wx-[id number] Yes encounter was in whole or in part related to the reason the patient needs home health care. The discharge summary or progress note will Yes provide further details that support the need for the home health services and the plan of care. Enter the allowed practitioner (DO CHAMP, Katia Mccallum PACHECO) who will provide oversight of this patient's home heatlh care needs and plan of care The patient? Cardiac disease s homebound status is related to the following diagnoses, illness or condition (describe): Patient needs one or more of the following Assistance not necessary, but medically to leave home: contraindicated as indicated below. Leaving the home is medically Other contraindicated due to: Please Specify: acute cardiac disease The following conditions illustrate the The severity o f cardiac disease limits patient? activity tolerance and ambulation s normal inability to leave home AND that leaving home requires a considerable and taxing effort: Skilled Care Requested Nursing asessment care home assessment needed related Response to new or changed medication to this encounter: Expected Discharge Date (Inpatient Only): 06/16/2017 Encounter Details Date Type Department Care Team Description 06/12/2017 - [facility] Nithya Rand MD [address] [address] Heart failure, unspecified HF chronicity , unspecified heart failure type (HCC-CMS) (Primary Dx); 06/16/2017 Encounter Cardiac/Telemetry Bg Atowod MD [address] [address] Subacute effusive constrictive pericardi tis Unit Tony Rosenberg MD [address] [place] [address] [address] [place] [address] [place] [id number] Social History Tobacco Use Types Packs/Day Years Used Date Never Smoker Smokeless Tobacco: Never Used Sex Assigned at Date Recorded Not on file documented as of this encounter Last Filed Vital Signs Vital Sign Reading Time Taken Comments Blood Pressure 98/67 06/16/2017 0734 EDT Pulse - - Temperature 35.7 ??C (96.3 ??F) 06/16/2017 0734 EDT Respiratory Rate 18 06/16/2017 0734 EDT Oxygen Saturation 98% 06/16/2017 0734 EDT Inhaled Oxygen Concentration - - Weight 97.5 kg (215 lb) 06/16/2017 0254 EDT Height 180.3 cm (5' 11) 06/12/2017 1800 EDT Body Mass Index 29.99 06/12/2017 1800 EDT documented in this encounter Functional Status [...] as of this encounter Discharge Diagnoses 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 0[ICD-10-CM] R00.0 Tachycardia, unspecified-R00.0[ICD -10-CM] R05 Cough-R05[ICD-10-CM] I50.89 Other heart failure-I50.89[ICD-10 -CM] E87.6 HYPOKALEMIA[ICD-10-CM] E83.42 HYPOMAGNESEMIA[ICD-10-CM] documented in this encounter Discharge Summaries Bg Atwood MD - 06/16/2017 1518 EDT Cardiology Discharge Summary Primary Care Provider: Katia Mccallum Attending Physician: Bg Atwood MD Admit Date: 06/12/2017 Discharge Date: 06/16/2017 Disposition: Home with home health Problems and Procedures Admitting Diagnosis: Heart failure, unspecified HF chronicity, unspecified heart failure type ([facility]) 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 Heart failure ([facility]) 06/12/2017 Resolved Hospital Problems Diagnosis Date Noted Date Resolved No resolved problems to display. Hospital Course David Farfan??is a 66 y.o.??male??with PMH of recent complete heart block s/p PPM with subsequent pericardial effusion (s/p 720mL serosanguenous fluid drained at last hospital admission in May) who presented as a transfer for pleural effusions in the setting of worsening cough, dyspnea, and orthopnea on a follow up exam at [facility]. He was transferred to [facility] due to concern for subacute constrictive pericarditis with pleural effusions. He was continued on colchicine with addition of prednisone. He underwent thoracentesis of his L pleural effusion (LDH > 2/3 upper limit of normal consistent with exudative effusion) with some improvement in his symptoms. He was unable to complete R hea rt cath due to orthopnea, though he improved clinically with medical management. He was medically stable for discharge with the medication changes listed below (Note: prednisone taper is 30mg for 2 weeks, 20mg for 2 weeks, 10mg for 2 weeks, and then 5mg for a week). Allergies and Immunizations No Known Allergies There is no immunization history on file for this patient. Transition of Care Plans Condition at Discharge Improved Assessment at Discharge Vital signs: Patient Vitals for the past 12 hrs: BP Heart Rate Resp Temp SpO2 O2 Device 06/16/17 1100 - 63 BPM - - - - 06/16/17 1000 - 66 BPM - - - - 06/16/17 0900 - 100 BPM - - - - 06/16/17 0800 - 102 BPM - - - - 06/16/17 0734 98/67 110 BPM 18 35.7 ??C (96.3 ??F) 98 % None 06/16/17 0533 107/64 80 BPM 18 36.5 ??C (97.7 ??F) 99 % None Discharge Medications: START taking these medications Sig metoprolol 25 mg tablet Commonly known as: LOPRESSOR Take 1 Tab by mouth 2 times daily. Quantity: 60 Tab * predniSONE 20 mg tablet Commonly known as: DELTASONE Take 30mg (20+10) 06/17-06/30; 20mg (20) 07/01-07/14; 10mg (10) 07/15-07/28; 5mg (1/2 of 10) 07/29-08/04 Quantity: 28 Tab * predniSONE 10 mg tablet Commonly known as: DELTASONE Take 30mg (20+10) 06/17-06/30; 20mg (20) 07/01-07/14; 10mg (10) 07/15-07/28; 5mg (1/2 of 10) 07/29-08/04 Quantity: 32 Tab * Notice: This list has 2 medication(s) that are the same as other medications prescribed for you. Read the directions carefully, and ask your doctor or other care provider to review them with you. CONTINUE taking these medications Sig acetaminophen 500 mg tablet Commonly known as: TYLENOL Take 1,000 mg by mouth 2 times daily. colchicine 0.6 mg tablet Commonly known as: COLCRYS Take 1 Tab by mouth 2 times daily. Quantity: 60 Tab torsemide 20 mg tablet Commonly known as: DEMADEX Take 2 Tabs by mouth daily. Quantity: 60 Tab Is the patient being discharged with a diagnosis of Systolic Heart Failure? No Coumadin Management N/A Non-Cardiac Studies at Time of Discharge none Results Pending at Discharge Test results still pending from this admission Procedure Component Value Units Date/Time Bacterial Culture/Smear, Fluid [[id number]] Collected: 06/13/17 0826 Lab Status: Preliminary result Specimen: FOSMIC from Pleural Fluid Updated: 06/15/17 07 Gram Smear Result Polys present No bacteria seen Result No growth Bacterial Culture, Blood [[id number]] Collected: 06/12/172246 Lab Status: In process Specimen: Blood Updated: 06/12/172320 Bacterial Culture, Blood [[id number]] Collected: 06/12/172239 Lab Status: In process Specimen: Blood Updated: 06/12/172319 Last Lab Results at Discharge BUN: Lab Results Component Value Date BUN 10 06/12/2017 Creatinine: Lab Results Component Value Date CREATININE 0.67 06/16/2017 CBC: Lab Results Component Value Date WBC 10.81 (H) 06/16/2017 RBC 3.83 (L) 06/16/2017 HGB 12.4 (L) 06/16/2017 HCT 35.6 (L) 06/16/2017 MCV 93 06/16/2017 MCH 32.4 06/16/2017 MCHC 34.8 06/16/2017 PLT 204 06/16/2017 DIFFTYPE Automated 06/14/2017 Electrolytes: Lab Results Component Value Date NA 133 (L) 06/16/2017 K 3.7 06/16/2017 CL 90 (L) 06/16/2017 CO2 33 (H) 06/16/2017 Lab Results Component Value Date HGBA1C 5.7 05/01/2017 Discharge Follow Up Appointments Scheduled with [facility] Upcoming Appointments Aug 06, 2017 15:20 EDT Follow Up Return with Tony Rosenberg MD [facility] Cardiology [facility] (--) [address] [place] [id number] Appointments Outside of [facility] We Will Schedule Follow-up appointments and procedures Amb Consult/Follow Up Cardiology With Dr. Torres Reason for Request: f/u constrictive pericarditis Expected Discharge Date (Inpatient Only): 06/16/2017 Practice Site (External Referral Only): [facility] Authorizing Provider: Michael Pratt MD Amb Consult/Follow Up Primary Care Physician Reason for Request: f/u hospitalization for constrictive pericarditis Expected Discharge Date (Inpatient Only): 06/16/2017 Authorizing Provider: Bg Atwood MD Home Health Agency-Other I certify that this patient is under my care and that I, or another Medicare authorized non-physician practitioner (PA or PASTEURISER OPERATOR) or resident working with me, had a leiz-eq-gkmx encounter with this patient on this date: 06/16/2017 I further certify that the bilg-yq-uggh encounter was in whole or in part related to the reason the patient needs home health care.: Yes The patient has had a bwka-dg-mtui visit by me or one of my colleagues. The discharge summary or progress note will provide further details that support the need for the home health services and the plan of care.: Yes The MD/DO who will provide oversight of this patient's home heatlh care needs and plan of care: Katia Mccallum The patient???s homebound status is related to the following diagnoses, illness or condition (describe): Cardiac disease Patient needs one or more of the following to leave home: Assistance not necessary, but medically contraindicated as indicated below. Leaving the home is medically contraindicated due to: Other Please Specify: acute cardiac disease The following conditions illustrate the patient???s normal inability to leave home AND that leaving home requires a considerable and taxing effort: The severity of cardiac disease limits activity tolerance and ambulation Skilled Care Requested: Nursing asessment care home assessment needed related to this encounter: Response to new or changed medication Expected Discharge Date (Inpatient Only): 06/16/2017 Authorizing Provider: Bg Atwood MD Additional Information: Please follow up at [facility] with Dr. Tony Rosenberg on August 06, 2017 at 3:20 pm. If you have questions please call [phone]. Please follow up with your primary care physician, Katia Mccallum, on June 17, 2017 at 10:45 am. If you have any questions please call [phone]. Studies We Will Schedule Appointments We Recommend but have not been Scheduled None Michael Pratt MD 06/16/2017 15:18 I evaluated the patient and agree with the discharge summary as outlined above by Dr. Pratt. Mr. Farfan was feeling much better today. 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 BG ATWOOD MD Attending Pedigree Tracer [facility] documented in this encounter Discharge Instructions Desi Powers - 06/16/2017 12:01 EDT Please follow up at [facility] with Dr. Tony Rosenberg on August 06, 2017 at 3:20 pm. If you have questions please call [phone]. Please follow up with your primary care physician, Katia Mccallum, on June 17, 2017 at 10:45 am. If you have any questions please call [phone]. Discharge Instr - Other Melida Mas RN - 06/13/2017 8:26 EDT Remember the acronym BRENDA - Diet: [...] through Care Everywhere. HEART FAILURE: AVOIDING TRIGGERS (LITHUANIAN)documented in this encounter Medications at Time of Discharge Medication Sig Dispensed Refills Start Date End Date acetaminophen (TYLENOL) 500 Take 1,000 mg by 0 mg tablet mouth 2 times daily. colchicine (COLCRYS) 0.6 mg Take 1 Tab by mouth 60 Tab 0 05/27/2017 tablet 2 times daily. metoprolol (LOPRESSOR) 25 mg Take 1 Tab by mouth 60 Tab 3 06/16/2017 tablet 2 times daily. predniSONE (DELTASONE) 10 mg Take 30mg [...] mouth daily. documented as of this encounter Ordered Prescriptions Prescription Sig Dispensed Refills Start Date End Date predniSONE (DELTASONE) 10 Take 30mg (20+10) 32 Tab 0 mg tablet 06/17-06/30; 20mg (20) 07/01-07/14; 10mg (10) 07/15-07/28; 5mg (/2 of 10) 07/29-08/04 predniSONE (DELTASONE) 20 Take 30mg (20+10) 28 Tab 0 mg tablet 06/17-06/30; 20mg (20) 07/01-07/14; 10mg (10) 07/15-07/28; 5mg (1/2 of 10) 07/29-08/04 metoprolol (LOPRESSOR) 25 Take 1 Tab by mouth 60 Tab 3 0 06/16/2017 mg tablet 2 times daily. documented in this encounter Discharge Disposition Disposition Code Departure Means Destination [place] [facility] [place] in this encounter Progress Notes Desi Villatoro, TISH - 06/16/2017 1657 EDT CM DISCHARGE NOTE: Pt was discharged home with Home Health Services. D/C Summary was faxed to his Conference Producer at Dr. Mccallum's office. Desi Villatoro RN #[id number] Tej Crawford MD - 06/15/2017 0816 EDT Cardiology Progress note Service Date: 06/15/2017 Admit Date: 06/12/2017 17:51 Reason for Admission: 66 y.o. male admitted with a chief complaint of dyspnea/orthopnea and now witha principal diagnosis of restrictive pericarditis. Events/ Procedures in the last 24 Hours: - naeo Subjective/Objective Subjective No complaints this morning, still unable to lie flat on the bed. denies chest pain, arm/jaw pain, palpitations, dizziness, syncope, near syncope or swelling. Review of Systems A ten point review of systems was performed. Pertinent positives are listed above in HPI, all othersare negative. Objective Vital Signs Patient Vitals for the past 8 hrs: BP Heart Rate Resp SpO2 O2 Device 06/15/17 0500 113/83 76 BPM 14 97 % None 06/15/17 0300 - 74 BPM - - - 06/15/17 0100 - 79 BPM - - - Weight: Patient Vitals for the past 8 hrs: Weight 06/15/17 0553 98.1 kg (216 lb 3.2 oz) Intake/Output Summary (Last 24 hours) at 06/15/17 0816 Last data filed at 06/15/17 0500 Gross per 24 hour Intake 1400 ml Output 3200 ml Net -1800 ml Physical Exam General appearance: alert, cooperative, no distress Skin: Skin color, temperature, turgor normal. No rashes or lesions. Rhinophyma Head: Normocephalic, without obvious abnormality, atraumatic Eyes: conjunctivae/corneas clear. EOM's intact Neck: supple, symmetrical, trachea midline, no elevation in JVD with inspiration Lungs: CTAB, non labored breathing, unable to fully inspire without cough Heart: RRR, S1, S2 normal, no murmur or rub Abdomen: soft, less tender; bowel sounds normal Neurologic: Grossly normal Mental Status: awake and alert; oriented to person, place, and time Extremities: extremities warm, atraumatic, no cyanosis, trace RLE edema, 1+LLE edema Pulses: 2+ and symmetric (radial and dorsal pedalis) Is PICC or central line present? No, PICC/Central line not present. Medications Available for review in EPIC Labs CBC: Recent Labs 06/13/17 0608 06/14/17 0532 06/15/17 0531 WBC 9.97 12.41* 11.63* HGB 12.2* 11.9* 11.4* HCT 34.9* 33.8* 33.1* MCV 93 93 94 PLT 223 243 240 BMP: Recent Labs 06/12/17 1837 06/13/17 0608 06/14/17 0532 06/15/17 0531 CREATININE 0.54* 0.58* 0.60* 0.65* BUN 10 -- -- -- NA 129* 132* 133* 133* K 3.4* 3.6 3.6 3.4* CL 91* 91* 91* 90* CO2 27 29 31 34* MG -- 1.4* 2.0 1.7 Coags: Recent Labs 06/13/1708 PROTIME 14.0* INR 1.2* LFTs: No results for input(s): ALT, AST, GGT, ALKPHOS, TBIL in the last 72 hours. Cardiac Biomarkers: Recent Labs 06/12/171836 TROPONINI <0.034 Lipids: No results for input(s): CHOL, TRIG, HDL, LDLBASE, CHOLHDL in the last 72 hours. Does the patient have active heart failure? No Assessment/Plan Assessment/Plan David Farfan??is a 66 y.o.??male??who presents as a transfer for pleural effusions in the setting of worsening cough, dyspnea, and orthopnea likely due to pericarditis. ?? 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 - Colchicine 0.6mg BID - Prednisone 40mg daily with taper in near future - SURGICAL SERVICES TECH torsemide 40mg daily Hypokalemia/Hypomagnesemia -replete as needed Pleural Effusions: Associated with worsening dyspnea and orthopnea. S/P thoracentesis with evidence of exudative effusion (LDH>2/3 upper limit normal). Uncertain etiology as I would expect transudative effusion 2/2 pericarditis - Monitor for concerns of recurrence with decreased breath sounds ?? Tachycardia: irregular pacing with intermittent tachycardia. Eval of pacemaker appears normal. - Metoprolol 25mg BID Cough: Ongoing for several weeks. Tessalon pearls did not appear to help in past. Due to chronicity,influenza not likely - Dextromethorphan PRN VTE Prophylaxis Pharmacologic Prophylaxis: Heparin 5000 units SQ Tid Discharge Plan Uncertain at this time Tej Casanova MD 06/15/2017 8:16 Associated attestation - Bg Atwood MD - 06/15/2017 1527 EDT I have seen and evaluated the patient. I agree with the assessment and plan as outlined above by . He seems to be doing better on the steroids. I encouraged ambulation. We will likely cancel the right heart catheterization for tomorrow. BG ATWOOD MD Attending Pedigree Tracer [facility] - 06/14/2017 0646 EDT Cardiology Progress note Service Date: 06/14/2017 Admit Date: 06/12/2017 17:51 Reason for Admission: 66 y.o. male admitted with a chief complaint of dyspnea/orthopnea and now witha principal diagnosis of restrictive pericarditis. Events/ Procedures in the last 24 Hours: - CT PE showed no PE - s/p L thoracentesis showing exudative fluid Subjective/Objective Subjective Feels OK this morning. No worsening or improvement in symptoms overnight. Slept in chair overnight. Continues to feel dyspneic with lying flat which prevented him from having L heart cath yesterday. Denies fever, chills, chest pain, nausea, vomiting, abnormal bowel/bladder function. Still has cough with lower abdominal pain when coughing. Notes that his cough has been ongoing for a couple weeks. Review of Systems A ten point review of systems was performed. Pertinent positives are listed above in HPI, all othersare negative. Objective Vital Signs Patient Vitals for the past 8 hrs: BP Heart Rate Resp Temp SpO2 O2 Device 06/14/17 0009 110/71 77 BPM 18 36.2 ??C (97.2 ??F) 95 % None Weight: Patient Vitals for the past 8 hrs: Weight 06/14/17 0337 100.6 kg (221 lb 12.8 oz) Intake/Output Summary (Last 24 hours) at 06/14/17 0646 Last data filed at 06/14/17 0300 Gross per 24 hour Intake 1350 ml Output 700 ml Net 650 ml Physical Exam General appearance: alert, cooperative, no distress Skin: Skin color, temperature, turgor normal. No rashes or lesions. Rhinophyma Head: Normocephalic, without obvious abnormality, atraumatic Eyes: conjunctivae/corneas clear. EOM's intact Neck: supple, symmetrical, trachea midline, no elevation in JVD with inspiration Lungs: CTAB, non labored breathing, unable to fully inspire without cough Heart: RRR, S1, S2 normal, no murmur or rub Abdomen: soft, less tender; bowel sounds normal Neurologic: Grossly normal Mental Status: awake and alert; oriented to person, place, and time Extremities: extremities warm, atraumatic, no cyanosis, trace RLE edema, 1+LLE edema Pulses: 2+ and symmetric (radial and dorsal pedalis) Is PICC or central line present? No, PICC/Central line not present. Medications Available for review in EPIC Labs CBC: Recent Labs 06/12/17183606/13/17 0608 06/14/17 0532 WBC 17.10* 9.97 12.41* HGB 12.2* 12.2* 11.9* HCT 34.1* 34.9* 33.8* MCV 92 93 93 PLT 206 223 243 BMP: Recent Labs 06/12/17 18306/13/17 0608 06/14/17 0532 CREATININE 0.54* 0.58* 0.60* BUN 10 -- -- NA 129* 132* 133* K 3.4* 3.6 3.6 CL 91* 91* 91* CO2 27 29 31 MG -- 1.4* 2.0 Coags: Recent Labs 06/13/17 0608 PROTIME 14.0* INR 1.2* LFTs: No results for input(s): ALT, AST, GGT, ALKPHOS, TBIL in the last 72 hours. Cardiac Biomarkers: Recent Labs 06/12/17 1837 TROPONINI <0.034 Lipids: No results for input(s): CHOL, TRIG, HDL, LDLBASE, CHOLHDL in the last 72 hours. Does the patient have active heart failure? No Assessment/Plan Assessment/Plan David Farfan??is a 66 y.o.??male??who presents as a transfer for pleural effusions in the setting of worsening cough, dyspnea, and orthopnea likely due to pericarditis. ?? 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 - Colchicine 0.6mg BID - Prednisone 40mg daily with taper in near future - SURGICAL SERVICES TECH torsemide 40mg daily Pleural Effusions: Associated with worsening dyspnea and orthopnea. S/P thoracentesis with evidence of exudative effusion (LDH>2/3 upper limit normal). Uncertain etiology as I would expect transudative effusion 2/2 pericarditis - Monitor for concerns of recurrence with decreased breath sounds ?? Tachycardia: irregular pacing with intermittent tachycardia. Eval of pacemaker appears normal. - Metoprolol 25mg BID Cough: Ongoing for several weeks. Tessalon pearls did not appear to help in past. Due to chronicity,influenza not likely - Dextromethorphan PRN VTE Prophylaxis Pharmacologic Prophylaxis: Heparin 5000 units SQ Tid Discharge Plan Uncertain at this time Michael Pratt MD 06/14/2017 6:46 Associated attestation - Bg Atwood MD - 06/14/2017 1520 EDT I have seen and evaluated the patient. I agree with the assessment and plan as outlined above by . Mr Farfan seems to be feeling better s/p thoracentesis and initiation of prednisone. We are treating him for a presumptive diagnosis of subacute effusive-constrictive pericarditis. We were unable to do the right heart catheterization, because he was coughing and could not lie flat. BG ATWOOD MD Attending Pedigree Tracer [facility] - 06/13/2017 1351 EDT Cardiology Progress note Service Date: 06/13/2017 Admit Date: 06/12/2017 17:51 Reason for Admission: 66 y.o. male admitted with a chief complaint of dyspnea/orthopnea and now witha principal diagnosis of restrictive pericarditis. Events/ Procedures in the last 24 Hours: - Admitted (See H&P) Subjective/Objective Subjective Feels OK this morning. No worsening or improvement in symptoms overnight. Slept in chair overnight. Feels dyspneic with lying flat. Denies fever, chills, chest pain, nausea, vomiting, abnormal bowel/bladder function. Still has cough with lower abdominal pain when coughing. Review of Systems A ten point review of systems was performed. Pertinent positives are listed above in HPI, all othersare negative. Objective Vital Signs Patient Vitals for the past 8 hrs: BP Heart Rate Resp Temp SpO2 O2 Device 06/13/17 1247 98/66 87 BPM - - 95 % - 06/13/17 1200 - - - - - None 06/13/17 1121 90/76 129 BPM 18 36.6 ??C (97.9 ??F) 97 % None 06/13/17 0900 - - - - - None 06/13/17 0859 - 124 BPM - - - - 06/13/17 0835 - 123 BPM 24 - 97 % - 06/13/17 0830 - 145 BPM 17 - 97 % - 06/13/17 0825 - - 28 - 97 % - 06/13/17 0820 - - 18 - 96 % - 06/13/17 0801 - - - - - None 06/13/17 0742 - - 18 - - - 06/13/17 0727 97/65 72 BPM - 36.4 ??C (97.5 ??F) 96 % None Weight: No data found. Intake/Output Summary (Last 24 hours) at 06/13/17 1352 Last data filed at 06/13/17 1132 Gross per 24 hour Intake 50 ml Output 2550 ml Net -2500 ml Physical Exam General appearance: alert, cooperative, no distress Skin: Skin color, temperature, turgor normal. No rashes or lesions. Rhinophyma Head: Normocephalic, without obvious abnormality, atraumatic Eyes: conjunctivae/corneas clear. EOM's intact Neck: supple, symmetrical, trachea midline, no elevation in JVD with inspiration Lungs: Diminished breath sounds at bases, non labored breathing Heart: Irregularly irregular tachycardia, S1, S2 normal, systolic friction rub Abdomen: soft, diffusely tender; bowel sounds normal Neurologic: Grossly normal Mental Status: awake and alert; oriented to person, place, and time Extremities: extremities warm, atraumatic, no cyanosis, 1+RLE edema, 2+LLE edema Pulses: 2+ and symmetric (radial and dorsal pedalis) Is PICC or central line present? No, PICC/Central line not present. Medications Available for review in EPIC Labs CBC: Recent Labs 06/12/17183606/13/17 0608 WBC 17.10* 9.97 HGB 12.2* 12.2* HCT 34.1* 34.9* MCV 92 93 PLT 206 223 BMP: Recent Labs 06/12/17183606/13/17 0608 CREATININE 0.54* 0.58* BUN 10 -- NA 129* 132* K 3.4* 3.6 CL 91* 91* CO2 27 29 MG -- 1.4* Coags: Recent Labs 06/13/17 0608 PROTIME 14.0* INR 1.2* LFTs: No results for input(s): ALT, AST, GGT, ALKPHOS, TBIL in the last 72 hours. Cardiac Biomarkers: Recent Labs 06/12/171836 TROPONINI <0.034 Lipids: No results for input(s): CHOL, TRIG, HDL, LDLBASE, CHOLHDL in the last 72 hours. Does the patient have active heart failure? Uncertain. Echo from OSH pending transfer Assessment/Plan Assessment/Plan David Farfan??is a 66 y.o.??male??who presents as a transfer for pleural effusions in the setting of worsening cough, dyspnea, and orthopnea. Tamponade is unlikely given normotension, no Kussmaul sign. Will plan for thoracentesis today as well as right/left heart cath. ?? 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 - Colchicine 0.6mg BID - Start prednisone 40mg daily with taper in near future - Push echo from OSH into our system or repeat echo - SURGICAL SERVICES TECH torsemide 40mg daily - Medical management pending echo findings (possible addition of beta marquise or ACEi) Pleural Effusions: Associated with worsening dyspnea and orthopnea. Likely etiology is 2/2 heart failure - Plan for thoracentesis today - Pleural fluid studies ordered ?? Tachycardia: irregular pacing - EP evaluation of pacemaker VTE Prophylaxis Pharmacologic Prophylaxis: Heparin 5000 units SQ Tid Discharge Plan Uncertain at this time Michael Pratt MD 06/13/2017 13:[address] - 06/13/2017 1326 EDT S/ RD attempted to meet with pt d/t and RN nutrition consult d/t unintended wt loss/decreased appetite. 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 O/ wt-100.7 kg Prior wt-~108 kg(05/24/17) Ht-180.3 cm BMI-~31 NPO for procedure Diet prior to NPO: Cardiac, 2 gm Na and 2000 ml FR Labs include-Na/K-132/3.6, Mg-1.4, BUN/Cr-10/0.58 A/ 66 yo male admitted d/t pleural effusions s/p outpatient cardiac echo. Nutrition consult generated by RN d/t wt loss of ~7 kg over past ~ 3 weeks. Unclear if wt loss represents decreased LBM vs diuresis. Mg noted to be slightly low. No diet/appetite hx available at this time. Per chart pt with hx of excessive ETOH intake, but pt now down to only 2 beer/day(since New Year). P/ Once pt back on diet, DT/RD will offer pt supplements/snacks and monitor po for adequacy. RD can provide low Na diet as needed prior to d/c. Magalis Berger RD, CD X/cover #[id number] meena Teixeira - 06/13/2017 1159 EDT Initial Case Management/Social Work Assessment and Discharge Plan/Readmission Risk Assessment REASON FOR ADMISSION: Heart failure ([facility]) Patient understands reason for admission: Yes PATIENT CONTACT INFO VERIFIED: Yes PATIENT ADDRESS VERIFIED: Yes (David is staying with his son Mo temporarily in [place]. He did not know the address) LIVING ARRANGEMENTS AND ACCESSIBILITY ISSUES: Living Arrangements: Family members Levels: 1 Stairs to enter: 2 Handicap access: None Bathroom located on bedroom level?: Yes What in home social supports are available to the patient? Family member(s) Is 24/7 care available? NA ADVANCED DIRECTIVES, POA &/or COLST IN PLACE: Healthcare Directive: No, patient does not have advance directive for healthcare treatment Information Provided on Healthcare Directives: Yes Information on Healthcare Directives Requested: No (David did not want any information) DIRECTIVES FOR FINANCES: Directive For Finances: No TRANSPORTATION: Transportation: Family (David was still driving prior to all his illnesses. He plans to return to driving. In the meantime his sons have been driving him) CULTURAL, SAMARITAN and/or LANGUAGE factors affecting health care/discharge planning: Spiritual/Cultural Requests: None Any factors affecting health care/discharge planning?: No Insurance in Place: Type of insurance: Medicare, Medicaid Medicare type: A, B Medicaid Type: Community DISCHARGE RISK ASSESSMENT: Polypharmacy, > 7 medications;Repeat hospitalizations/ED visits Total # selected above: Score of 2 - 4: This patient is at MODERATE RISK for re-hospitalization Tentative plan to address the risk of re-hospitalization for those at HIGH MODERATE RISK: RAPT TOOL: Age: 66-75 Ambulation distance: 2 or more blocks (600ft) Gait device: None Community Services: Home health, MOW, SASH-none of one time a week Will you live with someone who will care for you?: Yes RAPT Tool Score: 9 Patient expects to be discharged to: Home with his son SBIRT: SASQ (Single Alcohol Screening Question) How many times in the past year have you had 5 or more drinks in a single day?: Never How many times in the past year have you used an illegal drug or used a prescription medication for non-medical reasons?: Never Intervention in place/initiated?: No, not indicated FUNCTIONAL STATUS: Activities patient requires assistance: None Assistive Device: Cane, None (He has a cane that he uses when his knee is hurting) COMMUNITY RESOURCES/SUPPORTS: Primary Care Provider: Katia Mccallum PCP Verified: Yes Specialists: Cardiology Type of Home Health Services: Nurse visit DME Provider: Pharmacy: [facility] - [address] - [place], [place] - [address] [facility] [id number] [facility] - [facility] [place] - [address] [facility] [address] [facility] [address] [place] Other: Other (enter in comments) (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 He reports that he has only been drinking 1-2 beers/day. He denied any concern over his ETOH use. AMEENA TEIXEIRA 06/13/2017 11:59 For Ivelisse Rueda Desi Singh, TISH - 06/13/2017 0923 EDT 06/13: Received a call from Yessica Card at [facility]. She is the patient's Conference Producer. I've faxed patient's H&P to her and will keep her up to date on patient's progress and projected d/c. Yessica Card, Conference Producer P: [phone] ext [phone] F: [phone] Desi Villatoro RN [facility] #[id number] Renetta Saenz RN - 06/13/2017 0823 EDT Pt received from M5 to angio 22 at 815 for B/L Thoracentesis. Pt name and verified using armbandand verbally. Patients allergies, medications and lab results reviewed. IV site checked for patency.Sandro Ireland PA-C in room for consent Pt educated on procedure, pt verbalized understanding. Pt in sitting position. VS assessed. Pre u/s performed and no fluid on the right, only performing left thoracentesis. Time out done with all staff in room(AMB/KMG/TK) prior to start of procedure at 825. Sterile prep of left posterior chest with chloraprep by REAL AGUILA in the usual sterile fashion in compliance with manufacturers recommendation. Pt monitored through out procedure. 700ml of serosanginous fluid drained from left posterior chest by REAL. See MD note for procedure details. Pt tolerated procedure well. Report given to M5 RN. Pt transferred back to in stable condition with RN. documented in this encounter H&P Notes Denilson Shannon MD - 06/12/2017 9046 EDT Cardiology Admitting H&P Admit Date: 06/12/2017 Date of Service: 06/12/2017 PCP: Katia Mccallum Code Status: Full Code Chief Complaint: Dyspnea HPI: David Farfan??is a 66 y.o.??male??who presents as a transfer for pleural effusions in the setting of worsening cough, dyspnea, and orthopnea. ??He previously has had no medical care until he was admitted here from 04/30-05/04 for exertional dyspnea found to have??hypertensive urgency and asymptomatic complete heart block with a rate in the 30s. ??He underwent a pacemaker on 05/02/17 for complete heart block, Lyme antibody negative. ??During that admission he was started on amlodipine and chlorthalidone. ? He was again admitted on 05/20 with orthopnea and cough, and CT chest showed pericardial effusion. Heunderwent pericardiocentesis with 720mL serosanguinous fluid drained and relief in symptoms. Additionally 05/21 his PPM leads were adjusted, and CXR showed good placement. He was initiated on ibuprofen and colchicine for treatment of pericarditis prior to discharge with follow up performed by Dr. Rosenberg in [place] (has now completed 14 days of ibuprofen). After seeing Dr. Rosenberg yesterday and having an echo performed, he was noted to have worsening dyspnea, orthopnea, and increasing pleural effusions. He denies chest pain, diaphoresis, arm/jaw pain, wheezing, nausea/vomiting, change in bowels, or change in urination. He notes an ongoing cough with worsening abdominal pain from coughing so frequently. He was transferred to [facility] for consideration of thoracentesis and medical management. He denies smoking or recreational drugs. He does drink alcohol though notes he has cut back significantly since New Year's and has never had symptoms of withdrawal. He notes compliance with medications. Prior Cardiac History: - Complete heart block, s/p pacemaker - Pericarditis with current treatment of colchicine PMH PSH No past medical history on file. No past surgical history on file. Social History Family History Social History Substance Use Topics ??? Smoking status: Never Smoker ??? Smokeless tobacco: Never Used ??? Alcohol use Not on file No family history on file. Medications Prescriptions Prior to Admission Medication Sig Dispense Refill Last Dose ??? acetaminophen (TYLENOL) 500 mg tablet Take 1,000 mg by mouth 2 times daily. 05/19/2017 ??? colchicine (COLCRYS) 0.6 mg tablet Take 1 Tab by mouth 2 times daily. 60 Tab 0 ??? torsemide (DEMADEX) 20 mg tablet Take 2 Tabs by mouth daily. 60 Tab 2 Allergies No Known Allergies Review of Systems: A ten point review of systems was performed. Pertinent positives are listed above in HPI, all othersare negative. Objective/Physical Exam: VS: No data found. Pain: No data found. Weight: There is no height or weight on file to calculate BMI. Glucose Readings (last 8 hours): No results for input(s): GLUCOSEFINGE in the last 72 hours. Exam: General appearance: alert, cooperative, no distress Skin: Skin color, temperature, turgor normal. No rashes or lesions. Rhinophyma Head: Normocephalic, without obvious abnormality, atraumatic Eyes: conjunctivae/corneas clear. EOM's intact Neck: supple, symmetrical, trachea midline, no elevation in JVD with inspiration Lungs: Diminished breath sounds at bases, non labored breathing Heart: Irregularly irregular tachycardia, S1, S2 normal, systolic friction rub Abdomen: soft, diffusely tender; bowel sounds normal Neurologic: Grossly normal Mental Status: awake and alert; oriented to person, place, and time Extremities: extremities warm, atraumatic, no cyanosis, 1+RLE edema, 2+LLE edema Pulses: 2+ and symmetric (radial and dorsal pedalis) Pressure Ulcer Present on admission? No Hemoglobin A1c 05/01/2017: 5.7 LDL 05/01/2017: 96 Lyme antibody 04/30: negative EKG: Ventricular pacing >100 BPM with intermittent, irregular pauses Assessment: David Farfan??is a 66 y.o.??male??who presents as a transfer for pleural effusions in the setting of worsening cough, dyspnea, and orthopnea. Tamponade is unlikely given normotension, no Kussmaul sign. Will monitor him with plan for characterization of pleural effusions and thoracentesis tomorrow. Plan : Pleural Effusions: Per report of Dr. Rosenberg seen at OSH. Associated with worsening dyspnea and orthopnea. - CXR - Plan for thoracentesis tomorrow (either bedside or IR guided) - SURGICAL SERVICES TECH torsemide 40mg daily - NPO after midnight - Pleural fluid studies ordered - BMP, CBC, Troponin - Protime tomorrow Pericarditis: Tamponade unlikely. - Colchicine 0.6mg BID - Push echo from OSH into our system or repeat echo - High sensitivity CRP Tachycardia: irregular pacing - EP evaluation of pacemaker tomorrow VTE Prophylaxis: Pharmacologic Prophylaxis: Heparin 5000 units SQ Tid Discharge Plan: Uncertain at this time Michael Pratt MD 06/12/2017 17:59 Cards fellow Addendum 66 yo man who lives in [facility] and follows with Dr. Rosenberg with a history of PPM for complete heart block on 05/02. Patient returned on 05/20 with heart failure symptoms, severe hpyponatremia, found to have large pericardial effusion on CT scan so on 05/21 got pericardiocentesis showing serosanguinous discharge and lead revision with removal of RAA lead and replacement with a Richard's bundle lead for concern for lead perforation with significant improvement in BP instantaneously with pericardial drainage. Patient was discharged on ibuprofen and colchicine for pericarditis. Patient saw Dr. Lauren clinic yesterday and reported he had progressive dyspnea, coughing. Echo was done which showed large bilateral pleural effusions and Dr. Rosenberg arranged for patient to have a direct admission with tentative plan for bilateral thoracentesis. Blood pressure 110/75, temperature 36.8 ??C (98.2 ??F), temperature source Tympanic, resp. rate 22, height 180.3 cm (71), weight 100.7 kg (222 lb), SpO2 96 %. Exam significant for: chronially ill but NAD, Neck difficult to assess JVP. RRR with occasional skipped beat, and tele looks like sinus tach with V pacing with occasional pause On exam lungs mildly diminished, no obvious dullness at lung bases L>R leg edema ECG - reviewed. Rate of what looks like sinus rhythm is about 130 with occasional non-conducted P with overall rate of 120. No obvious pacer check I can see in epiphany from recently but original pacernote had upper limit of pacing of 120? Possibly occasionally not conducting as above upper rate? Could consider some form of wenkebach phenomena due to a lead problem CXR - with small-mod pleural effusions per my read. Per radiology slight improvement in LLL aerationfrom prior / left retrocardiac opacity from prior (on 05/26). A&P - Somewhat concerning to me that patient has what looks like sinus tach to 130s. However Bp is stable and just did have echo so suspicion for tamponade is low. Not clear to me that patient justhas symptomatic pleural effusions from prior tamponade given not very impressive on CXR. Also reportedly echo looked okay other than pleural effusions. 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 Does have asymmetric edema so PE possible. - per son has been drinking more recently, would place patient on observational CIWA protocol - I added on NT pro BNP - interrogate PPM tomorrow AM (will need to call EP RN) - would get d-dimer and duplex of legs overnight - team attempted to obtain echo from [facility] however unable to do so until AM - if no other etiology found consider switching to colchicine + prednisone - blood cultures Denilson Shannon MD Sleeve Ironer Pager [phone] 06/12/2017 21:56 Associated attestation - Bg Atwood MD - 06/13/2017 0906 EDT I have seen and evaluated the patient. I agree with the assessment and plan as outlined above by . I am concerned that Mr. Farfan has constrictive physiology given his recent acute pericarditis and volume overload at this point. I need to review his echocardiogram, and we are going to obtainan invasive hemodynamic assessment today (right heart catheterization). He is going to have a thoracentesis as well. BG ATWOOD MD Attending Pedigree Tracer [facility] Procedure Notes Randy Ireland PA-C - 06/13/2017 0839 EDT IR Procedure Note Procedure: Requested U/S guided bilateral thoracentesis Date Performed: 06/13/2017 Radiologist/Dump Truck Driver Off Highway(s):MD Anrdea /MINGO Ireland Sedation/Anesthesia: local Time Out: A time-out was completed prior to procedure verifying correct patient, procedure, site, positioning, and special equipment if applicable. Estimated Blood Loss: Unless otherwise noted, there was no blood loss, specimens removed, cultures obtained, or drains retained. Specimens: fluid Fluoroscopy Time: 0 Contrast Volume: none Complications: none Condition: Stable Post Procedure Diagnosis: SOB pleural effusion Findings: Left-800 cc clear light red fluid Right-u/s exam showed scant fluid, no thoracentesis done Recommendations: F/u labs, cytology Randy Ireland PA-C 06/13/2017 8:40 documented in this encounter Miscellaneous Notes Plan of Care - Omayra Farley RN - 06/16/2017 1523 EDT Problem: Daily Care Plan Goals Goal: Care Plan Documentation Data: Pt admitted with increased SOB, cough, pleural effusion and restrictive pericarditis. VSS. Tele - V - paced. LSC, RA. Denies SOB. Ambulating in hallway independently without difficulty. Dischargehome orders received. Action: [facility] called and report given. They are familiar with this pt. Tele and PIV removed. Pt dressed independently. Discharge paperwork reviewed with pt. Verbalizes good understanding. Response: awaiting ride for discharge home. Omayra Farley RN 06/16/2017 15:21 lan of Ottoniel - Diamond Manzano RN - 06/16/2017 0033 EDT Problem: High Fall Risk: Goal: Patient will Remain Free of Falls due to Altered Mobility Outcome: Completed Date Met: 06/16/17 Problem: High Fall Risk: Add only for + Hendrich score - Add only risk factors indicated by assessment Goal: Patient Will Remain Free from Fall-Related Injury Outcome: Ongoing Problem: Daily Care Plan Goals Goal: Care Plan Documentation Outcome: Ongoing 06/15/172027 Care Plan Focus Area of Focus Circulatory Status Goal This Shift vss Data: Pt AOx3. VSS on room air. V-paced on tele with intermittent episodes of tachycardia HR in 120's. Denies any pain/discomfort. Action: Administered meds per eMAR. Instructed pt of NPO status for possible procedure today. Response: Pt sleeping in recliner. Will continue to assess. Diamond Manzano RN 06/16/2017 0:32 Problem: Respiratory: Goal: Ability to maintain adequate ventilation will improve Outcome: Ongoing lan of Care - Licha Strong RN - 06/15/2017 0321 EDT Problem: Daily Care Plan Goals Goal: Care Plan Documentation Outcome: Met This Shift 06/15/17 0316 Care Plan Focus Area of Focus Respiratory Goal This Shift stable & unlabored respiratory status Problem: Respiratory: Goal: Ability to maintain adequate ventilation will improve Outcome: Met This Shift D: Pt had pleural effusion post thoracentesis with removal of 800 ml fluid on 06/13. Pt reported he had production cough with white sputum, no chills or fever.Pt denied any difficult breathing. A: RN assessed patient, reviewed telemetry data and lab results, discussed plan of care with patient.Informed pt that he will have [facility] on Friday. R: Pt verbalized understanding of his plan of care. lan of Care - Mila Mcallister RN - 06/14/2017 1558 EDT Problem: Daily Care Plan Goals Goal: Care Plan Documentation Outcome: Met This Shift 06/14/17 0736 Care Plan Focus Area of Focus Mobility Goal This Shift ambulate Data: Pleural effusion & Pericarditis. Pt has not complained of pain or SOB. Pt having coughing fits and bringing up thick white sputum. Lungs are diminished with crackles at the bases. Pt is V-paced with HR 80'80-100's. BP 107/67 (BP Cuff Location: Left arm, Patient Position: Sitting) Temp 37.1??C (98.8 ??F) Resp 18 Ht 180.3 cm (71) Wt 100.6 kg (221 lb 12.8 oz) Comment: BED WEIGHT SpO2 95% BMI 30.93 kg/m2 Action: Pt started on 25 mg of po Metoprolol bid. Scheduled Torsemide 40 mg po & Care notes given. Encouraged ambulation. Strict I&O's with 2000 ml fluid limit. Response: Pt states he is fine. Voiding large amounts. CTM MILA MCALLISTER RN 06/14/2017 15:51 lan of Care - Hailee Cox RN - 06/14/2017 0536 EDT Problem: Daily Care Plan Goals Goal: Care Plan Documentation 06/14/17 0005 Care Plan Focus Area of Focus Circulatory Status Goal This Shift patient's VS will remain stable overnight Data: Patient HD#2 with pericarditis and recurrent pleural effusions. Action: VS overnight. BP WNL. Patient continued to have persistent cough overnight but denies any SOB at rest or with exertion s/p thoracentesis. Pt also endorses less pain with coughing as the night continued. He slept upright in recliner. Response: Care clustered to promote rest. Continue to assess VS as ordered and monitor intake/outputas ordered. Pt verbalized understanding of plan of care. HAILEE Cox RN 06/14/2017 5:32 lan of Care - Michelle Godinez RN - 06/13/2017 7219 EDT Problem: High Fall Risk: Goal: Patient will Remain Free of Falls due to Altered Mobility Outcome: Ongoing Problem: High Fall Risk: Add only for + Hendrich score - Add only risk factors indicated by assessment Goal: Patient Will Remain Free from Fall-Related Injury Outcome: Ongoing Problem: Daily Care Plan Goals Goal: Care Plan Documentation Outcome: Ongoing 06/13/17 1546 Care Plan Focus Area of Focus Circulatory Status Goal This Shift VSS D: Patient admitted with CHF exacerbation and pleural effusion in setting of multiple recent admissions for pericardial effusion, 3 degree HB, and HTN per report. Patient alert, oriented, pleasant. Denies pain/shortness of breath. Respirations easy on room air. Lungs auscultated to have crackles in bilateral bases. HR irregular. Afib with BBB, occasional V pacing, HR in 100s-120s with activity. Mg low at 1.4. 2+ bilateral lower extremity edema noted. Hypotension this shift with SBP as low as 82. A: Patient off floor for thoracentesis. 750ml out per report. Bandaid in place, site CDI. Patient also off floor for CT scan, and u/s. NPO for possible L/RHC today. 2L fluid restriction in place as well as strict I/O. Unable to complete heart cath d/t shortness of breath/difficulty lying flat. MD Thomason of hypotension, Demadex held per MD order. Iv Mg repletion this shift. R: Continue to monitor patient for comfort/safety as well as HR/Rhythm and VS. Monitor patient for shifts in fluid balance. Monitor neurovascular status. Continue to reinforce education as appropriate. lan of Care - Irena Restrepo - 06/13/2017 1143 EDT Problem: Daily Care Plan Goals Goal: Care Plan Documentation Outcome: Ongoing 06/13/17 0744 Care Plan Focus Area of Focus Circulatory Status Goal This Shift VSS Data: Right/Left upper lobes clear to ascultation - bases diminished. Infrequent cough with thick clear sputum return. Pt self ambulatory, continues to be NPO. Patients reports minimal discomfort post thoracentesis. Action: Left thoracentesis performed r/t pleural effusion. 700 mL drained. Patient off floor for CT Scan & PE Study. PRN Acetaminophen offered per order. Response: Patient denies the need for analgesic. Plan for R heart catheter this afternoon. Will continue to monitor. Irena Restrepo 06/13/2017 11:30 lan of Care - Ольга Greenwood RN - 06/13/2017 0322 EDT Problem: High Fall Risk: Goal: Patient will Remain Free of Falls due to Altered Mobility Outcome: Ongoing Problem: High Fall Risk: Add only for + Hendrich score - Add only risk factors indicated by assessment Goal: Patient Will Remain Free from Fall-Related Injury Outcome: Ongoing Problem: Daily Care Plan Goals Goal: Care Plan Documentation Outcome: Ongoing 06/12/17 1955 Care Plan Focus Area of Focus Circulatory Status Goal This Shift vss Data: vss, afebrile. Pt on room air, lungs with crackles, 2+ bilateral edema noted. Pt went down to CXR on tele. Tele shows paced rhythm rate 80-130's when up to bathroom. Action: I & O maintained. Nursing assessment done. Response:continue to monitor. Ольга Greenwood RN 06/13/2017 3:20 lan of Care - Michelle Godinez RN - 06/12/2017 1845 EDT Problem: Daily Care Plan Goals Goal: Care Plan Documentation Outcome: Ongoing 06/12/17 1807 Care Plan Focus Area of Focus Circulatory Status Goal This Shift vss D: Patient admitted for CHF exacerbation from home accompanied by sons at bedside. Alert, oriented, pleasant. Denies pain/shortness of breath. Strong harsh cough present. Patient reports productive of thick sometimes green sputum. Lungs auscultated to have crackles throughout. HR irregular. Underlyingafib per monitor with BBB and occasional Vpacing. VSS. 2+ edema to bilateral lower extremities noted. Recent pacemaker site to L side CDI with some old drainage noted. A: Patient oriented to room/call garza system. Admission database completed. finance lecturer applied. Plan of care reviewed to include sodium restriction and fluid monitoring. Patient verbalizes understanding. Sons at bedside very concerned with care, trying to answer many questions for patient. Emotional support and education provided as appropriate. R:continue to monitor patient heart rate/rhythm. Monitor patient for shifts in fluid balance as wellas respiratory status. Provide education and reinforce teaching as appropriate. documented in this encounter Plan of Treatment Scheduled Referrals Name Type Priority Associated Diagnoses Order S chedule AMB CONS/FOLLOW UP Outpatient Referral Routine Heart failure, Ordered: HOME HEALTH unspecified HF 06/16/2017 SERVICES chronicity, unspecified heart failure type (HCC-CMS) Subacute effusive constrictive pericarditis AMB CONS/FOLLOW UP Outpatient Referral Routine Heart failure, Ordered: PRIMARY CARE unspecified HF 06/16/2017 PHYSICIAN chronicity, unspecified heart failure type (HCC-CMS) Subacute effusive constrictive pericarditis AMB CONS/FOLLOW UP Outpatient Referral Routine Heart failure, Ordered: CARDIOLOGY unspecified HF 06/16/2017 chronicity, unspecified heart failure type (HCC-CMS) Subacute effusive constrictive pericarditis documented as of this encounter Procedures Procedure Name Priority Date/Time Associated Comments Diagnosis ECG REPORT - SCANNED 06/29/2017 16:01 EDT IMPLANT RECORD - 06/19/2017 14:15 SCANNED EDT ECG REPORT - SCANNED 06/19/2017 14:15 EDT COMPLETE BLOOD COUNT Routine 06/16/2017 5:39 Resu lts for this EDT procedure are i n the results section. MAGNESIUM Routine 06/16/2017 5:39 Results for this EDT procedure are i n the results section. CREATININE Routine 06/16/2017 5:39 Results for this EDT procedure are i n the results section. ELECTROLYTES Routine 06/16/2017 5:39 Results for this EDT procedure are i n the results section. COMPLETE BLOOD COUNT Routine 06/15/2017 5:31 Resu lts for this EDT procedure are i n the results section. MAGNESIUM Routine 06/15/2017 5:31 Results for this EDT procedure are i n the results section. CREATININE Routine 06/15/2017 5:31 Results for this EDT procedure are i n the results section. ELECTROLYTES Routine 06/15/2017 5:31 Results for this EDT procedure are i n the results section. INPATIENT ADD-ON Routine 06/14/2017 8:00 Results for this EDT procedure are i n the results section. DIFFERENTIAL Routine 06/14/2017 5:32 Results for this EDT procedure are i n the results section. COMPLETE BLOOD COUNT Routine 06/14/2017 5:32 Resu lts for this EDT procedure are i n the results section. MAGNESIUM Routine 06/14/2017 5:32 Results for this EDT procedure are i n the results section. CREATININE Routine 06/14/2017 5:32 Results for this EDT procedure are i n the results section. ELECTROLYTES Routine 06/14/2017 5:32 Results for this EDT procedure are i n the results section. INPATIENT ADD-ON Routine 06/13/2017 15:00 Results for this EDT procedure are i n the results section. INPATIENT ADD-ON STAT 06/13/2017 15:00 Results for this EDT procedure are i n the results section. CT CHEST (PE) PROTOCOL Routine 06/13/2017 10:41 R esults for this W CONTRAST EDT procedure are i n the results section. RAD US DOPPLER LOWER Routine 06/13/2017 10:20 Res ults for this EXTREMITY VENOUS EDT procedure a re in BILATERAL the results section. IR THORACENTESIS Routine 06/13/2017 8:45 Results for this EDT procedure are i n the results section. HEMATOCRIT, BODY FLUID Routine 06/13/2017 8:26 Re sults for this EDT procedure are i n the results section. PH, PLEURAL FLUID (FDA Routine 06/13/2017 8:26 Re sults for this APPROVED FOR PLEURAL EDT procedu re are in FLUID ONLY) the results section. BACTERIAL Routine 06/13/2017 8:26 Results for this CULTURE/SMEAR, FLUID EDT procedu re are in the results section. FLUID DIFFERENTIAL Routine 06/13/2017 8:26 Result s for this EDT procedure are i n the results section. FLUID CELL COUNT Routine 06/13/2017 8:26 Results for this EDT procedure are i n the results section. TOTAL PROTEIN, FLUID Routine 06/13/2017 8:26 Resu lts for this EDT procedure are i n the results section. LDH, FLUID Routine 06/13/2017 8:26 Results for this EDT procedure are i n the results section. GLUCOSE, FLUID Routine 06/13/2017 8:26 Results fo r this EDT procedure are i n the results section. CREATININE, FLUID Routine 06/13/2017 8:26 Results for this EDT procedure are i n the results section. PROTIME Routine 06/13/2017 6:08 Results for this EDT procedure are i n the results section. COMPLETE BLOOD COUNT Routine 06/13/2017 6:08 Resu lts for this EDT procedure are i n the results section. PROTEIN, TOTAL Routine 06/13/2017 6:08 Results fo r this EDT procedure are i n the results section. MAGNESIUM Routine 06/13/2017 6:08 Results for this EDT procedure are i n the results section. LDH Routine 06/13/2017 6:08 Results for this EDT procedure are i n the results section. CREATININE Routine 06/13/2017 6:08 Results for this EDT procedure are i n the results section. ELECTROLYTES Routine 06/13/2017 6:08 Results for this EDT procedure are i n the results section. BACTERIAL CULTURE, Routine 06/12/2017 22:47 Resul ts for this BLOOD EDT procedure are i n the results section. BACTERIAL CULTURE, Routine 06/12/2017 22:40 Resul ts for this BLOOD EDT procedure are i n the results section. D-DIMER Routine 06/12/2017 22:40 Results for this EDT procedure are i n the results section. INPATIENT ADD-ON Routine 06/12/2017 21:30 Results for this EDT procedure are i n the results section. CHEST PA AND LATERAL Routine 06/12/2017 20:56 Res ults for this EDT procedure are i n the results section. INPATIENT ADD-ON Routine 06/12/2017 19:20 Results for this EDT procedure are i n the results section. TROPONIN I Routine 06/12/2017 18:37 Results for this EDT procedure are i n the results section. COMPLETE BLOOD COUNT Routine 06/12/2017 18:37 Res ults for this EDT procedure are i n the results section. HIGH SENSITIVITY Routine 06/12/2017 18:37 Results for this C-REACTIVE PROTEIN EDT procedure are in (CARDIOVASCULAR the results DISEASE) section. BUN Routine 06/12/2017 18:37 Results for this EDT procedure are i n the results section. NT PRO BNP Routine 06/12/2017 18:37 Results for this EDT procedure are i n the results section. CREATININE Routine 06/12/2017 18:37 Results for this EDT procedure are i n the results section. ELECTROLYTES Routine 06/12/2017 18:37 Results for this EDT procedure are i n the results section. EKG 12-LEAD Routine 06/12/2017 18:27 Results for this EDT procedure are i n the results section. documented in this encounter Results MAGNESIUM (06/16/2017 5:39 EDT) Pathologist Sig nature Magnesium 1.9 1.7 - 2.8 mg/dl [facility] Specimen Blood specimen (specimen) - Blood Performing Organization Address City/State/ZIP Code Phon e Number [facility] [address] [place] [address] SERVICES (ABNORMAL) ELECTROLYTES (06/16/2017 5:39 EDT) Pathologist Sig nature Sodium 133 (L) 136 - 145 mEq/L [facility] Potassium 3.7 3.5 - 5.0 mEq/L [facility] Chloride 90 (L) 96 - 110 mEq/L [facility] CO2 33 (H) 22 - 32 mEq/L [facility] Specimen Blood specimen (specimen) - Blood Performing Organization Address [facility] Phon e Number [facility] [address] [place] [address] SERVICES (ABNORMAL) HEMAGRAM (06/16/2017 5:39 EDT) Pathologist Sig nature WBC 10.81 (H) 4.0 - 10.4 K/cmm [facility] RBC 3.83 (L) 4.36 - 5.78 M/cmm [facility] Hemoglobin 12.4 (L) 13.8 - 17.3 gm/dl [facility] HCT 35.6 (L) 39.5 - 50.2 % [facility] MCV 93 81 - 95 fl [facility] MCH 32.4 27.6 - 33.0 pg [facility] MCHC 34.8 32.8 - 36.4 gm/dl [facility] RDW-CV 11.9 <14.2 % [facility] RDW-SD 40.8 <46.0 fl [facility] PLT 204 141 - 377 K/cmm [facility] MPV 12.4 9.5 - 12.7 fl [facility] Specimen Blood specimen (specimen) - Blood Performing Organization Address City/[facility]/ZIP Code Phon e Number [facility] [address] [place] [address] SERVICES CREATININE (06/16/2017 5:39 EDT) Creatinine 0.67 0.66 - 1.25 [facility] mg/dl LABORATORY SERVICES GFR, Calculated 100 >60 [facility] Comment: ml/min/1.73m2 LABORATORY eGFR calculated using CKD-EPI equation for SERVICES non Americans. Multiply eGFR by 1.16 for Americans. Specimen Blood specimen (specimen) - Blood Performing Organization Address City/[facility]/ZIP Code Phon e Number [facility] [address] [place] [address] SERVICES MAGNESIUM (06/15/2017 5:31 EDT) Pathologist Sig nature Magnesium 1.7 1.7 - 2.8 mg/dl [facility] Specimen Blood specimen (specimen) - Blood Performing Organization Address [facility]/ZIP [place] Phon e Number [facility] [address] [place] [address] SERVICES (ABNORMAL) ELECTROLYTES (06/15/2017 5:31 EDT) Pathologist Sig nature Sodium 133 (L) 136 - 145 mEq/L [facility] Potassium 3.4 (L) 3.5 - 5.0 mEq/L [facility] Chloride 90 (L) 96 - 110 mEq/L [facility] CO2 34 (H) 22 - 32 mEq/L [facility] Specimen Blood specimen (specimen) - Blood Performing Organization Address City/[facility]/ZIP Code Phon e Number [facility] [address] [place] [address] SERVICES (ABNORMAL) HEMAGRAM (06/15/2017 5:31 EDT) Pathologist Sig nature WBC 11.63 (H) 4.0 - 10.4 K/cmm [facility] RBC 3.51 (L) 4.36 - 5.78 M/cmm [facility] Hemoglobin 11.4 (L) 13.8 - 17.3 gm/dl [facility] HCT 33.1 (L) 39.5 - 50.2 % [facility] MCV 94 81 - 95 fl [facility] MCH 32.5 27.6 - 33.0 pg [facility] MCHC 34.4 32.8 - 36.4 gm/dl [facility] RDW-CV 12.0 <14.2 % [facility] RDW-SD 41.4 <46.0 fl [facility] PLT 240 141 - 377 K/cmm [facility] MPV 11.1 9.5 - 12.7 fl [facility] Specimen Blood specimen (specimen) - Blood Performing Organization Address City/[facility]/ZIP Code Phon e Number [facility] [address] [place] [address] SERVICES (ABNORMAL) CREATININE (06/15/2017 5:31 EDT) Creatinine 0.65 (L) 0.66 - 1.25 [facility] mg/dl LABORATORY SERVICES GFR, Calculated 101 >60 [facility] Comment: ml/min/1.73m2 LABORATORY eGFR calculated using CKD-EPI equation for SERVICES non Americans. Multiply eGFR by 1.16 for Americans. Specimen Blood specimen (specimen) - Blood Performing Organization Address City/[facility] Phon e Number [facility] [address] [place] [address] SERVICES INPATIENT ADD-ON (06/14/2017 8:00 EDT) Tests to be added PLEASE ADD ON [facility] DIFFERENTIAL TO CBC LABORATORY SERVICES Number for [id number] [facility] problems LABORATORY SERVICES Accession number [id number] [facility] Specimen Other Performing Organization Address [facility] Phon e Number [facility] [address] [place] [address] SERVICES (ABNORMAL) DIFFERENTIAL (06/14/2017 5:32 EDT) Pathologist Sig nature Neutrophils 72.2 % [facility] Lymphocytes 14.9 % [facility] Monocytes 12.1 % [facility] Eosinophils 0.1 % [facility] Basophils 0.2 % [facility] Immature Grans 0.5 % [facility] ABS Neutrophils 8.96 (H) 2.20 - 8.85 [facility] K/cm LABORATORY SERVICES ABS Lymphs 1.85 1.09 - 3.30 [facility] K/cmm LABORATORY SERVICES ABS Monocytes 1.50 (H) 0.1 - 0.8 K/cmm [facility] ABS Eosinophils 0.01 (L) 0.03 - 0.61 [facility] K/cmm LABORATORY SERVICES ABS Basophils 0.02 0.01 - 0.11 [facility] K/cmm LABORATORY SERVICES ABS Immature Grans 0.06 0 - 0.06 K/cmm [facility] Type of Diff: Automated [facility] Specimen Blood Performing Organization Address [facility]/ZIP Code Phon e Number [facility] [address] [place] [address] SERVICES MAGNESIUM (06/14/2017 5:32 EDT) Pathologist Sig nature Magnesium 2.0 1.7 - 2.8 mg/dl [facility] Specimen Blood specimen (specimen) - Blood Performing Organization Address [facility] Phon e Number [facility] [address] [place] [address] SERVICES (ABNORMAL) ELECTROLYTES (06/14/2017 5:32 EDT) Pathologist Sig nature Sodium 133 (L) 136 - 145 mEq/L [facility] Potassium 3.6 3.5 - 5.0 mEq/L [facility] Chloride 91 (L) 96 - 110 mEq/L [facility] CO2 31 22 - 32 mEq/L [facility] Specimen Blood specimen (specimen) - Blood Performing Organization Address [facility]/ZIP [place] Phon e Number [facility] [address] [place] [address] SERVICES (ABNORMAL) HEMAGRAM (06/14/2017 5:32 EDT) Pathologist Sig nature WBC 12.41 (H) 4.0 - 10.4 K/cmm [facility] RBC 3.64 (L) 4.36 - 5.78 M/cmm [facility] Hemoglobin 11.9 (L) 13.8 - 17.3 gm/dl [facility] HCT 33.8 (L) 39.5 - 50.2 % [facility] MCV 93 81 - 95 fl [facility] MCH 32.7 27.6 - 33.0 pg [facility] MCHC 35.2 32.8 - 36.4 gm/dl [facility] RDW-CV 11.9 <14.2 % [facility] RDW-SD 40.7 <46.0 fl [facility] PLT 243 141 - 377 K/cmm [facility] MPV 11.7 9.5 - 12.7 fl [facility] Specimen Blood specimen (specimen) - Blood Performing Organization Address [facility] Phon e Number [facility] [address] [place] [address] SERVICES (ABNORMAL) CREATININE (06/14/2017 5:32 EDT) Creatinine 0.60 (L) 0.66 - 1.25 [facility] mg/dl LABORATORY SERVICES GFR, Calculated 105 >60 [facility] Comment: ml/min/1.73m2 LABORATORY eGFR calculated using CKD-EPI equation for SERVICES non Americans. Multiply eGFR by 1.16 for Americans. Specimen Blood specimen (specimen) - Blood Performing Organization Address [facility] Phon e Number [facility] [address] [place] [address] SERVICES INPATIENT ADD-ON (06/13/2017 15:00 EDT) Tests to be added PLEASE ADD ON [facility] HEMATOCRIT TO LABORATORY SERVICES PLEURAL FLUID OBTAINED TODAY (06/13). [place] [id number] [facility] problems LABORATORY SERVICES Accession number [id number]: [facility] Corrected on 06/13 LABORATORY SERVICES AT 1515: Previously reported as [id number] Specimen Other Performing Organization Address [facility] Phon e Number [facility] [address] [place] [address] SERVICES INPATIENT ADD-ON (06/13/2017 15:00 EDT) Tests to be added TOTAL PROTEIN,LDH [facility] [place] [id number] [facility] problems LABORATORY SERVICES Accession number [id number]: [facility] Corrected on 06/13 LABORATORY SERVICES AT 1502: Previously reported as [id number] Specimen Other Performing Organization Address [facility] Phon e Number [facility] [address] [place] [address] CHEST (PE) PROTOCOL W CONTRAST (06/13/2017 10:41 EDT) Anatomical Region Laterality Modality Other Specimen Narrative [facility] - 06/13/2017 11:23 EDT CTA CHEST W CONTRAST (PE) PROTOCOL ??06/13/2017 10:41 AM Clinical History/Comments: tachycardia, shortness of breath w/ unil ateral lower extremity edema. evaluate for PE Technique: A contrast-enhanced helical CT acquisiti on of the chest from apices through the lung bases was performed wit h a reconstructed slice thickness of 0.9 mm with overlapping 0.4 5 mm intervals following the intravenous administration of 75-100 cc of 350-370 mg% nonionic contrast injected at a rate of 4-5 cc/se cond. ??A small test bolus was used for image acquisition. Scans we re reviewed on a dedicated PACS workstation for analysis. The radio logist reviewed and/or adjusted the images for the 3D/MIP rende ring on an independent workstation, as necessary, prior to inte rpretation. Exam Description: CTA of the chest. Comparison: Outside CT 05/20/2017. Findings: Opacification of the pulmonary vasculatu re is good No acute or chronic emboli are seen within the pulmo nary arterial vasculature. Lower neck: Significant abnormality Mediastinum: ??Central pulmonary artery enlargement is consistent with pulmonary hypertension. The ascendi ng aorta is mildly dilated. The aortic valve leaflets are mildly dewayne cified. The coronary arteries and mitral annulus are heavily calcified. Pacemaker leads are present in the region of the sinoatr ial node and right ventricular apex. The pericardial effusi on present on May 20 has resolved. There is no pericardial calcif ication. No enlarged lymph nodes are present in the mediastinum or alvino. Lungs: ??Scarring in the right base is l ikely related to the pleural process. Groundglass nodules and tree-in -bud opacities in the anterobasal segment of the right lower l obe could reflect an acute infection. Mild centrilobular emphysema is present in the upper lobes. Airspace consolidation adjacent t o the left effusion is likely passive atelectasis. The airways are diffusely thickened with scattered secretions. No suspicious nodu les are present. Pleura: Diffuse calcification of the ple ura on the right could reflect either old hemothorax or previou s empyema. The left pleural effusion has decreased in size and is no w tiny. No pleural fluid is seen on the right.. Upper abdomen (limited to upper abdomen, not optimized for abdominal imaging): No significant abnormality Bones and chest wall: ??Old fractures ar e present in both clavicles and multiple ribs Impression: 1. ??No evidence of pulmonary embolism. 2. ??Extensive right-sided pleural thick ening likely reflects old hemothorax given the multiple old fractu res 3. ??Possible new infection in the right middle lobe (this area was obscured by motion artifact on the previ ous study) 4. ??Coronary atherosclerosis 5. ??Interval resolution of pericardial effusion and decrease of left pleural effusion Procedure Note Umang Dugan MD - 06/13/2017 CTA CHEST W CONTRAST (PE) PROTOCOL 2017 10:41 AM Clinical History/Comments: tachycardia, shortness of breath w/ unil ateral lower extremity edema. evaluate for PE Technique: A contrast-enhanced helical CT acquisiti on of the chest from apices through the lung bases was performed wit h a reconstructed slice thickness of 0.9 mm with overlapping 0.4 5 mm intervals following the intravenous administration of 75-100 cc of 350-370 mg% nonionic contrast injected at a rate of 4-5 cc/se cond. A small test bolus was used for image acquisition. Scans we re reviewed on a dedicated PACS workstation for analysis. The radio logist reviewed and/or adjusted the images for the 3D/MIP rende ring on an independent workstation, as necessary, prior to inte rpretation. Exam Description: CTA of the chest. Comparison: Outside CT 05/20/2017. Findings: Opacification of the pulmonary vasculatu re is good No acute or chronic emboli are seen within the pulmo nary arterial vasculature. Lower neck: Significant abnormality Mediastinum: Central pulmonary artery en largement is consistent with pulmonary hypertension. The ascendi ng aorta is mildly dilated. The aortic valve leaflets are mildly dewayne cified. The coronary arteries and mitral annulus are heavily calcified. Pacemaker leads are present in the region of the sinoatr ial node and right ventricular apex. The pericardial effusi on present on May 20 has resolved. There is no pericardial calcif ication. No enlarged lymph nodes are present in the mediastinum or alvino. Lungs: Scarring in the right base is lik isamar related to the pleural process. Groundglass nodules and tree-in -bud opacities in the anterobasal segment of the right lower l obe could reflect an acute infection. Mild centrilobular emphysema is present in the upper lobes. Airspace consolidation adjacent t o the left effusion is likely passive atelectasis. The airways are diffusely thickened with scattered secretions. No suspicious nodu les are present. Pleura: Diffuse calcification of the ple ura on the right could reflect either old hemothorax or previou s empyema. The left pleural effusion has decreased in size and is no w tiny. No pleural fluid is seen on the right.. Upper abdomen (limited to upper abdomen, not optimized for abdominal imaging): No significant abnormality Bones and chest wall: Old fractures are present in both clavicles and multiple ribs Impression: 1. No evidence of pulmonary embolism. 2. Extensive right-sided pleural thicken ing likely reflects old hemothorax given the multiple old fractu res 3. Possible new infection in the right m iddle lobe (this area was obscured by motion artifact on the previ ous study) 4. Coronary atherosclerosis 5. Interval resolution of pericardial ef fusion and decrease of left pleural effusion Performing Organization Address City/State/ZIP Code Phon e Number [facility] RAD US DOPPLER LOWER EXTREMITY VENOUS BILATERAL (06/13/2017 10:20 EDT) Anatomical Region Laterality Modality Other Specimen Narrative [facility] - 06/13/2017 11:50 EDT RAD US DOPPLER LOWER EXTREMITY VENOUS BILATERAL ??06/13/2017 10:20 AM Signs and Symptoms/Comments: ?? lower extremity edema, hypoxemia and con cern for PE. r/o DVT Comparison: None available. Technique: Doppler evaluation of the deep veins of the bilateral lower extremities was performed. Findings: The bilateral external iliac veins, comm on femoral veins, proximal through distal femoral veins, and the po pliteal veins all demonstrate normal Doppler flow, normal respiratory variation, normal augmentation, and normal compress ion. The peroneal and posterior tibial veins demonstrate kelsey l color Doppler flow bilaterally. Impression: No evidence of deep venous thrombosis in the bilateral lower extremities. Procedure Note Lakhwinder Huang MD - 06/13/2017 RAD US DOPPLER LOWER EXTREMITY VENOUS BI LATERAL 06/13/2017 10:20 AM Signs and Symptoms/Comments: lower extremity edema, hypoxemia and con cern for PE. r/o DVT Comparison: None available. Technique: Doppler evaluation of the deep veins of the bilateral lower extremities was performed. Findings: The bilateral external iliac veins, comm on femoral veins, proximal through distal femoral veins, and the po pliteal veins all demonstrate normal Doppler flow, normal respiratory variation, normal augmentation, and normal compress ion. The peroneal and posterior tibial veins demonstrate kelsey l color Doppler flow bilaterally. Impression: No evidence of deep venous thrombosis in the bilateral lower extremities. Performing Organization Address City/State/ZIP Code Phon e Number [facility] IR THORACENTESIS (06/13/2017 8:45 EDT) Anatomical Region Laterality Modality Other Specimen Narrative [facility] - 06/13/2017 10:51 EDT IR THORACENTESIS ??06/13/2017 8:45 AM Clinical History/Comments: pleural effusions Informed consent was obtained from the p atient following a detailed explanation of the risks and benefits of the procedure as well as alternative diagnostic and therapeutic m ethods including no further procedures. Findings: An ultrasound examination of t he bilateral chest demonstrates the presence of a medium-si zed left pleural effusion. The right pleural space shows minimal pl eural fluid. Using sterile technique and under local anesthesia, a 8-Niuean thoracentesis catheter was advanced into the left pleu ral space and 700 cc clear light red fluid was removed. ??The pleur al fluid was withdrawn and sent to the lab for analysis. The patien t tolerated the procedure well without complication. Garima Dawn, was directly supe rvised in the performance of this procedure. Impression: Successful ultrasound-guided left thoracentesis yielding 700cc of clear light red fluid which was sent to the lab for analysis. Procedure Note William Mendez MD - 06/13/2017 IR THORACENTESIS 06/13/2017 8:45 AM Clinical History/Comments: pleural effusions Informed consent was obtained from the p atient following a detailed explanation of the risks and benefits of the procedure as well as alternative diagnostic and therapeutic m ethods including no further procedures. Findings: An ultrasound examination of t he bilateral chest demonstrates the presence of a medium-si zed left pleural effusion. The right pleural space shows minimal pl eural fluid. Using sterile technique and under local anesthesia, a 8-Niuean thoracentesis catheter was advanced into the left pleu ral space and 700 cc clear light red fluid was removed. The pleural fluid was withdrawn and sent to the lab for analysis. The patien t tolerated the procedure well without complication. Garima Dawn, was directly supe rvised in the performance of this procedure. Impression: Successful ultrasound-guided left thoracentesis yielding 700cc of clear light red fluid which was sent to the lab for analysis. Performing Organization Address [facility]/ZIP Code Phon e Number [facility] HEMATOCRIT, BODY FLUID (06/13/2017 8:26 EDT) Pathologist Sig nature Hematocrit,Body Fld <3.0 % [facility] Specimen Pleural Fluid Performing Organization Address [facility] Phon e Number [facility] [address] [place] [address] SERVICES FLUID DIFFERENTIAL (06/13/2017 8:26 EDT) Neutrophils, Fluid 33 % [facility] Lymphocytes, Fluid 50 % [facility] Rosebud/Macro, Fluid 12 % [facility] Mesothelial 5 % [facility] Fluid Comment Rev'd by [facility] Pathologist LABORATORY SERVICES Specimen Pleural Fluid Performing Organization Address [facility] Phon e Number [facility] [address] [place] [address] SERVICES PH, PLEURAL FLUID (06/13/2017 8:26 EDT) Pleural Fluid pH 7.42 [facility] Comment: LABORATORY SERVICES Reference range: Pleural fluid Exudate: 7.30-7.45 Transudate: 7.40-7.55 A pleural fluid pH <7.30 is generally associated with a complicated parapneumonic effusion, empyema, connective tissue disease of the pleura or malignant effusion. Specimen Pleural Fluid Performing Organization Address [facility] Phon e Number [facility] [address] [place] [address] SERVICES BACTERIAL CULTURE/SMEAR, FLUID (06/13/2017 8:26 EDT) Gram Smear Result Polys [facility] present LABORATORY SERVICES Gram Smear Result No bacteria seen [facility] Result No growth [facility] Specimen FOSMIC - Pleural Fluid Performing Organization Address City/State/ZIP Code Phon e Number [facility] [address] [place] [address] SERVICES FLUID CELL COUNT (06/13/2017 8:26 EDT) RBC, Fluid 44,000 /cmm [facility] Nucleated Cells 11,202 /cmm [facility] Fluid Comment MODERATELY BLOODY, [facility] MODERATELY CLOUDY LABORATORY SERVICES Specimen Body fluid (substance) - Pleural Fluid Performing Organization Address City/[facility]/ZIP Code Phon e Number [facility] [address] [place] [address] SERVICES TOTAL PROTEIN, FLUID (06/13/2017 8:26 EDT) Protein, Fluid 5.2 g/dl [facility] Comment: LABORATORY SERVICES Reference Range: Pleural fluid specimen (specimen) Exudate > 3.0 g/dl Pleural fluid specimen (specimen) Transudate <3.0 g/dl Peritoneal fluid sample (specimen) Serum ascites to albumin gradient (SAGG) superior to total protein content in differentiating causes of effusion. Pleural fluid specimen (specimen) Specimen FOSCH - Pleural Fluid Performing Organization Address City/[facility]/ZIP Code Phon e Number [facility] [address] [place] [address] SERVICES LDH, FLUID (06/13/2017 8:26 EDT) Pathologist Sig nature LDH, Fluid 654 U/L [facility] Comment: LABORATORY SERVICES Pleural fluid specimen (specimen) Reference Range: Suggestive of exudate if fluid cholesterol is > 45 mg/dl or fluid LDH is greater than 0.45 times the upper limit of normal serum LDH levels. Peritoneal fluid sample (specimen) No reference range available Pleural fluid specimen (specimen) Specimen FOSCH - Pleural Fluid Performing Organization Address City/[facility]/ZIP Code Phon e Number [facility] [address] [place] [address] SERVICES GLUCOSE, FLUID (06/13/2017 8:26 EDT) Glucose, Fluid 88 mg/dl [facility] Comment: LABORATORY SERVICES Reference Range: Pleural fluid specimen (specimen) Low glucose is accepted as <60 mg/dl or pleural fluid to serum glucose ratio of <0.5. Peritoneal fluid sample (specimen) Low glucose is generally accepted as <50 mg/dl. Pleural fluid specimen (specimen) Specimen FOSCH - Pleural Fluid Performing Organization Address [facility] Phon e Number [facility] [address] [place] [address] SERVICES CREATININE, FLUID (06/13/2017 8:26 EDT) Creatinine, Fluid 0.57 mg/dl [facility] Comment: LABORATORY SERVICES Reference Range: Pleural fluid specimen (specimen) No reference range available Peritoneal fluid sample (specimen) No reference range available Drain device specimen (specimen) No reference range available Pleural fluid specimen (specimen) Specimen FOSCHM - Pleural Fluid Performing Organization Address [facility] e Number [facility] [address] [place] [address] SERVICES PROTEIN, TOTAL (06/13/2017 6:08 EDT) Pathologist Sig nature Total Protein 7.2 6.3 - 8.2 g/dl [facility] Specimen Blood Performing Organization Address [facility] Phon e [facility] [address] [place] [address] SERVICES LDH (06/13/2017 6:08 EDT) Pathologist Sig nature LDH 428 313 - 618 U/L [facility] SERVICES Specimen Blood Performing Organization Address [facility] Phon e [facility] [address] [place] [address] SERVICES (ABNORMAL) MAGNESIUM (06/13/2017 6:08 EDT) Pathologist Sig nature Magnesium 1.4 (L) 1.7 - 2.8 mg/dl [facility] Specimen Blood specimen (specimen) - Blood Performing Organization Address [facility] e [facility] [address] [place] [address] SERVICES (ABNORMAL) ELECTROLYTES (06/13/2017 6:08 EDT) Pathologist Sig nature Sodium 132 (L) 136 - 145 mEq/L [facility] Potassium 3.6 3.5 - 5.0 mEq/L [facility] Chloride 91 (L) 96 - 110 mEq/L [facility] ORY SERVICES CO2 29 22 - 32 mEq/L [facility] Specimen Blood specimen (specimen) - Blood Performing Organization Address City/State/ZIP Code Phon e Number [facility] [address] [place] [address] SERVICES (ABNORMAL) HEMAGRAM (06/13/2017 6:08 EDT) Pathologist Sig nature WBC 9.97 4.0 - 10.4 K/cmm [facility] RBC 3.76 (L) 4.36 - 5.78 M/cmm [facility] Hemoglobin 12.2 (L) 13.8 - 17.3 gm/dl [facility] HCT 34.9 (L) 39.5 - 50.2 % [facility] MCV 93 81 - 95 fl [facility] MCH 32.4 27.6 - 33.0 pg [facility] MCHC 35.0 32.8 - 36.4 gm/dl [facility] RDW-CV 11.8 <14.2 % [facility] RDW-SD 40.4 <46.0 fl [facility] PLT 223 141 - 377 K/[facility] LABORATORY SERVICES MPV 11.9 9.5 - 12.7 fl [facility] Specimen Blood specimen (specimen) - Blood Performing Organization Address City/State/ZIP Code Phon e Number [facility] [address] [place] [address] SERVICES (ABNORMAL) CREATININE (06/13/2017 6:08 EDT) Creatinine 0.58 (L) 0.66 - 1.25 [facility] mg/dl LABORATORY SERVICES GFR, Calculated 106 >60 [facility] Comment: ml/min/1.73m2 LABORATORY eGFR calculated using CKD-EPI equation for SERVICES non Americans. Multiply eGFR by 1.16 for Americans. Specimen Blood specimen (specimen) - Blood Performing Organization Address City/State/ZIP Code Phon e Number [facility] [address] [place] [address] SERVICES (ABNORMAL) PROTIME (06/13/2017 6:08 EDT) Pro Time 14.0 (H)Comment: NOTE 10.3 - 13.4 [facility] NEW REFERENCE RANGE secs LABORATORY SERVICE S OF APR 03 2017 I.N.R. 1.2 (H) 0.9 - 1.1 [facility] Comment: Ratio LABORATORY SERVICES Moderate Intensity Coumadin INR = 2.0-3.0 Adjustments in anticoagulant therapy dose should be based upon the INR and NOT the Pro Time. Specimen Blood specimen (specimen) - Blood Performing Organization Address [facility] Phon e Number [facility] [address] [place] [address] SERVICES BACTERIAL CULTURE, BLOOD (06/12/2017 22:47 EDT) Pathologist Sig nature Result No growth [facility] LAB[facility] Y SERVICES Specimen Blood specimen (specimen) - Blood Performing Organization Address [facility] Phon e Number [facility] [address] [place] [address] SERVICES (ABNORMAL) D-DIMER (06/12/2017 22:40 EDT) Pathologist Sig nature D-Dimer 724 (H) <230 ng/mL [facility] Comment: LABORATORY SERVICES CUTOFF VALUE FOR THE EXCLUSION OF DVT and PE: 230 ng/m L D-dimer units Any use of the age-adjusted cutoff value is a post-analytic modification of this FDA-approved test and is considered off-label use of the test result. [facility] laboratory does not have literature to support the validity of an age-adjusted cutoff for our specific assay. Specimen Blood specimen (specimen) - Blood Performing Organization Address [facility] Phon e Number [facility] [address] [place] [address] SERVICES BACTERIAL CULTURE, BLOOD (06/12/2017 22:40 EDT) Pathologist Sig nature Result No growth [facility] Specimen Blood specimen (specimen) - Blood Performing Organization Address [facility] Phon e Number [facility] [address] [place] [address] SERVICES INPATIENT ADD-ON (06/12/2017 21:30 EDT) Pathologist Sig nature Tests to be added NT PRO BNP [facility] Number for problems Not Given [facility] Accession number [id number] [facility] Specimen Other Performing Organization Address [facility] Phon e Number [facility] [address] [place] [address] SERVICES CHEST PA AND LATERAL (06/12/2017 20:56 EDT) Anatomical Region Laterality Modality Other Specimen Narrative [facility] - 06/12/2017 21:12 EDT CHEST PA AND LATERAL ??06/12/2017 8:56 PM Clinical History/Comments: dyspnea Comparison: May 2017. Technique: Frontal and lateral views of the chest w ere performed. Findings: Soft tissues: ??A left chest wall pacer generator is present with leads terminating in the right ventricle and right atrium. Bones: Normal. Cardiac and mediastinal contours:Normal. Lungs: There has been interval improveme nt in the left retrocardiac opacity. The right lung appears relative ly stable. ?? Pleura/diaphragms: Again noted is dense thickening and calcification of the right pleura. A moderate left ple ural effusion is present. Impression: 1. ??Slight interval improvement in left lower lobe aeration. Procedure Note Iva Juárez MD - 06/12/2017 CHEST PA AND LATERAL 06/12/2017 8:56 PM Clinical History/Comments: dyspnea Comparison: May 2017. Technique: Frontal and lateral views of the chest w ere performed. Findings: Soft tissues: A left chest wall pacer ge nerator is present with leads terminating in the right ventricle and right atrium. Bones: Normal. Cardiac and mediastinal contours:Normal. Lungs: There has been interval improveme nt in the left retrocardiac opacity. The right lung appears relative ly stable. Pleura/diaphragms: Again noted is dense thickening and calcification of the right pleura. A moderate left ple ural effusion is present. Impression: 1. Slight interval improvement in left l ower lobe aeration. Performing Organization Address City/State/ZIP Code Phon e Number [facility] INPATIENT ADD-ON (06/12/2017 19:20 EDT) Tests to be added HIGH SENSITIVITY CRP [facility] [place] [id number] [facility] problems LABORATORY SERVICES Accession number [id number] [facility] Specimen Other Performing Organization Address City/State/ZIP Code Phon e Number [facility] [address] [place] [address] SERVICES (ABNORMAL) NT PRO BNP (06/12/2017 18:37 EDT) Pathologist Sig nature NT Pro BNP 1,380 (H) <300 pg/ml [facility] Comment: LABORATORY SERVICES Reference Range: NT-proBNP values less than 300 [...] 72% for acute congestive failure. Specimen Blood Performing Organization Address City/[facility]/ZIP [place] Phon e Number [facility] [address] [place] [address] SERVICES HIGH SENSITIVITY C-REACTIVE PROTEIN (CARDIOVASCULAR DISEASE) (06/12/2017 18:37 EDT) High Sensitivity 83.3 mg/L [facility] CRP Comment: LABORATORY Reference Range: SERVICES <1.0 mg/L Low risk 1.0-3.0 mg/L Average risk >3.0 mg/L High risk >10.0 mg/L Acute inflammation Specimen Blood Performing Organization Address City/State/ZIP Code Phon e Number [facility] [address] [place] [address] SERVICES TROPONIN I (06/12/2017 18:37 EDT) Pathologist Sig nature Troponin I (ng/mL) <0.034 <0.034 ng/ml [facility] Specimen Blood specimen (specimen) - Blood Performing Organization Address City/[facility]/ZIP [place] Phon e Number [facility] [address] [place] [address] SERVICES (ABNORMAL) HEMAGRAM (06/12/2017 18:37 EDT) Pathologist Sig nature WBC 17.10 (H) 4.0 - 10.4 K/cmm [facility] RBC 3.70 (L) 4.36 - 5.78 M/cmm [facility] Hemoglobin 12.2 (L) 13.8 - 17.3 gm/dl [facility] HCT 34.1 (L) 39.5 - 50.2 % [facility] MCV 92 81 - 95 fl [facility] MCH 33.0 27.6 - 33.0 pg [facility] MCHC 35.8 32.8 - 36.4 gm/dl [facility] RDW-CV 11.6 <14.2 % [facility] RDW-SD 39.4 <46.0 fl [facility] PLT 206 141 - 377 K/cmm [facility] MPV 12.3 9.5 - 12.7 fl [facility] Specimen Blood specimen (specimen) - Blood Performing Organization Address [facility]/ZIP Code Phon e Number [facility] [address] [place] [address] SERVICES BUN (06/12/2017 18:37 EDT) Pathologist Sig nature BUN 10 10 - 26 mg/dl [facility] SERVICES Specimen Blood specimen (specimen) - Blood Performing Organization Address [facility] Phon e Number [facility] [address] [place] [address] SERVICES (ABNORMAL) ELECTROLYTES (06/12/2017 18:37 EDT) Pathologist Sig nature Sodium 129 (L) 136 - 145 mEq/L [facility] Potassium 3.4 (L) 3.5 - 5.0 mEq/L [facility] Chloride 91 (L) 96 - 110 mEq/L [facility]Y SERVICES CO2 27 22 - 32 mEq/L [facility] SERVICES Specimen Blood specimen (specimen) - Blood Performing Organization Address [facility] Phon e Number [facility] [address] [place] [address] SERVICES (ABNORMAL) CREATININE (06/12/2017 18:37 EDT) Creatinine 0.54 (L) 0.66 - 1.25 [facility] mg/dl LABORATORY SERVICES GFR, Calculated 109 >60 [facility] Comment: ml/min/1.73m2 LABORATORY eGFR calculated using CKD-EPI equation for SERVICES non Americans. Multiply eGFR by 1.16 for Americans. Specimen Blood specimen (specimen) - Blood Performing Organization Address [facility]/ZIP [place] Phon e Number [facility] [address] [place] [address] SERVICES EKG 12-LEAD (06/12/2017 18:27 EDT) Specimen Narrative [facility] EKG - 06/29/2017 15:5 7 EDT ? [facility] ? Test Date: ?2017-06-12 Pat Name: ? DAVID FARFAN ?Department: ?? [facility]ao ? Room: ? ME505 Gender: ? Male ? 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 Requested By: GISELA Dunn Order Number: [id number] ? Reading MD: ?? SENG PERSON SA MD ? Measurements Intervals ?Diamond ? Rate: ? 120 ?P: ?165 PA: ? 235 ?QRS: ?-22 QRSD: ? 176 ?T: ?171 QT: ? 369 ? QTc: ?521 ? Interpretive Statements ELECTRONIC VENTRICULAR PACEMAKER atrial tachycardia with ventricular trac nancy ABNORMAL RHYTHM ECG Automated Interpretation. ??Provider Int erpretation to follow. Compared to ECG 05/27/2017 07:37:21 Sinus rhythm no longer present I reviewed the tracing and have either a greed or edited the findings in this report. Electronically Signed On 06-30-19 15:57:35 EDT by SENG PERSON SA, MD. 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 Provider Inter pretation to follow. Compared to ECG 05/27/2017 07:37:21 Sinus rhythm no longer present I reviewed the tracing and have either a greed or edited the findings in this report. Electronically Signed On 06-30-19 15:57:35 EDT by SENG PERSON SA, MD. 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) documented in this encounter Administered Medications Inactive Administered Medications - up to 3 most recent administrations Medication Order MAR Action Action Date Dose Rate Site acetaminophen (TYLENOL) tablet 650 Given 06/13/2017 13:59 EDT 65 0 mg mg 650 mg, oral, EVERY 4 HOURS PRN, Starting on [place] 06/12/17 at 1748, Until 06/16/17 at 1857, Pain, Routine colchicine (COLCRYS) tablet 0.6 mg Given 06/16/2017 8:02 EDT 0.6 mg 0.6 mg, oral, 2 TIMES DAILY, First dose on [place] 06/12/17 at 2100, Until Discontinued, Routine Given 06/15/2017 20:31 EDT 0.6 mg Given 06/15/2017 8:52 EDT 0.6 mg dextromethorphan-guaifenesin (ROBITUSSIN DM) Given 06/16/2017 14 :24 EDT 5 mL 10-100 mg/5 mL syrup 5 mL 5 mL, oral, EVERY 4 HOURS PRN, Starting on 06/14/17 at 0835, Until 06/16/17 at 1857, Cough, Routine Given 06/14/2017 23:25 EDT 5 mL Given 06/14/2017 10:58 EDT 5 mL heparin injection 5,000 Units Given 06/16/2017 0:17 EDT 5,000 Units 5,000 Units, subcutaneous, EVERY 8 HOURS, First dose on Fri06/13/17 at 0000, Until Discontinued, Routine Given 06/15/2017 16:04 EDT 5,000 Units Given 06/15/2017 8:58 EDT 5,000 Units Abdomina l Tissue magnesium sulfate 2 g in water 50 mL Given 06/13/2017 10:58 EDT 2 g 2 g, intravenous, Administer over 30 Minutes, NOW X1, 1 dose, On Fri06/13/17 at 0745, Routine magnesium sulfate 2 g in water 50 mL Given 06/15/2017 8:59 EDT 2 g 2 g, intravenous, Administer over 30 Minutes, NOW X1, 1 dose, On Fri06/15/17 at 0845, Routine metoprolol (LOPRESSOR) tablet 25 mg Given 06/16/2017 8:02 EDT 25 mg 25 mg, oral, 2 TIMES DAILY, First dose on 06/14/17 at 1045, Until Discontinued, Routine Given 06/15/2017 20:31 EDT 25 mg Given 06/15/2017 8:58 EDT 25 mg morphine injection Given 06/13/2017 12:47 EDT 2 mg intravenous, PRN, Starting on Fri06/13/17 at 1247, Until 06/14/17 at 2308, Routine potassium chloride SA (K-DUR, KLOR-CON) tablet Given 0 06/12/2017 20:04 EDT 40 mEq 40 mEq 40 mEq, oral, ONCE, 1 dose, Starting on Laurel 06/12/17 at 2000, Until [place] 06/12/17 at 2004, Routine potassium chloride SA (K-DUR, KLOR-CON) tablet Given 018 8:59 EDT 40 mEq 40 mEq 40 mEq, oral, NOW X1, 1 dose, On Fri06/15/17 at 0845, Routine potassium chloride SA (K-DUR, KLOR-CON) tablet Given 0 06/16/2017 10:04 EDT 40 mEq 40 mEq 40 mEq, oral, NOW X1, 1 dose, On 06/16/17 at 1000, Routine predniSONE (DELTASONE) tablet 40 mg Given 06/16/2017 8:02 EDT 40 mg 40 mg, oral, DAILY, First dose on Fri06/13/17 at 1330, Until Discontinued, Routine Given 06/15/2017 8:52 EDT 40 mg Given 06/14/2017 9:19 EDT 40 mg sodium chloride 0.9 % (NS) infusion New Bag 06/13/2017 12:46 EDT 25 mL/hr 25 mL/hr intravenous, FA IP EQF CONTINUOUS PRN FOR ONE STEP MEDS, Starting on Fri06/13/17 at 1246, Until 06/14/17 at 2308, Routine sodium chloride 0.9 % flush 3 mL Given 06/16/2017 8:02 EDT 3 mL 3 mL, intravenous, EVERY 8 HOURS, First dose on [place] 06/12/17 at 1815, Until Discontinued, Routine Given 06/16/2017 0:17 EDT 3 mL Given 06/15/2017 16:04 EDT 3 mL torsemide (DEMADEX) tablet 40 mg Given 06/16/2017 8:03 EDT 40 mg 40 mg, oral, DAILY, First dose on [place] 06/12/17 at 1900, Until Discontinued, STAT Given 06/15/2017 8:53 EDT 40 mg Given 06/14/2017 9:20 EDT 40 mg documented in this encounter Active and Recently Administered Medications Times are shown in EDT. Scheduled Medication Order 06/14/2017 06/15/2017 06/16/2017 colchicine (COLCRYS) tablet 0.6 mg 918 (Given - Provi jinny: Mila Mcallister RN)2103 (Given - Provider: Mila Mcallister RN) 08 (Given - Provider: Omayra Farley RN)203 (Given - Provider: Diamond Manzano RN) 0802 (Given - Provider: Omayra Farley RN) 0.6 mg, oral, 2 TIMES DAILY, First dose on [place] 06/12/17 at 2100, Until Discontinued, Routine heparin injection 5,000 Units 0012 (Given - Provider: Hailee Cox RN)0922 (Given - Provider: Mila Mcallister RN)1636 (Given - Provider: Mila Mcallister RN)2320 (Given - Provider: Licha Strong RN) 0858 (Given - Provider: Omayra Farley, TISH)1604 (Given - Provider: Omayra Farley, TISH) 0017 (Given - Provider: Diamond Manzano RN)0803 (Not Given - Provider: Omayra Farley RN - Reason: Patient/family refused)1506 (Not Given - Provider: Omayra Farley RN - Reason: Other - Comment: to be dc'd home, ambulating frequently ) 5,000 Units, subcutaneous, EVERY 8 HOURS , First dose on Fri06/13/17 at 0000, Until Discontinued, Routine magnesium sulfate 2 g in water 50 mL (COMPLETED) 0859 (Given - Provider: Omayra Farley RN - Comment: 1.7) 2 g, intravenous, Administer over 30 Min utes, NOW X1, 1 dose, 4/15/18 at 0845, Routine metoprolol (LOPRESSOR) tablet 25 mg 1050 (Given - Prov ider: Mila Mcallister RN)2104 (Given - Provider: Mila Mcallister RN) 0858 (Given - Provider: Omayra Farley RN)203 (Given - Provider: Diamond Manzano, RN) 0802 (Given - Provider: Omayra Farley RN) 25 mg, oral, 2 TIMES DAILY, First dose o n 06/14/17 at 1045, Until Discontinued, Routine potassium chloride SA (K-DUR, KLOR-CON) tablet 40 mEq (COMPL ETED) 0859 (Given - Provider: Omayra Farley RN - Comment: 3.4) 40 mEq, oral, NOW X1, 1 dose, 06/15/17 at 0845, Routine potassium chloride SA (K-DUR, KLOR-CON) tablet 40 mEq (COMPLETED ) 1004 (Given - Provider: Omayra Farley RN - Comment: k 3.7) 40 mEq, oral, NOW X1, 1 dose, 06/16/17 at 1000, Routine predniSONE (DELTASONE) tablet 40 mg 0919 (Given - Prov ider: Mila Mcallister RN) 0852 (Given - Provider: Omayra Farley RN) 0802 (Gi tabatha - Provider: Omayra Farley RN) 40 mg, oral, DAILY, First dose on Fri at 1330, Until Discontinued, Routine sodium chloride 0.9 % flush 3 mL 0013 (Given - Provide r: Hailee Cox RN)0921 (Given - Provider: Mila Mcallister RN)1639 (Given - Provider: Mila Mcallister, TISH)2320 (Given - Provider: Licha Strong RN) 0858 (Given - Provider: Omayra Farley RN)1604 (Given - Provider: Omayra Farley RN) 0017 (Given - Provider: Diamond Manzano, TISH)0802 (Given - Provider: Omayra Farley RN)1506 (Not Given - Provider: Omayra Farley RN - Reason: Other - Comment: discharge orders) 3 mL, intravenous, EVERY 8 HOURS, First dose on [place] 06/12/17 at 1815, Until Discontinued, Routine torsemide (DEMADEX) tablet 40 mg 0920 (Given - Provide r: Mila Mcallister RN) 0853 (Given - Provider: Omayra Farley RN) 0803 (Gi tabatha - Provider: Omayra Farley, TISH) 40 mg, oral, DAILY, First dose on [place] 06/12/17 at 1900, Until Discontinued, STAT PRN Medication Order 06/14/2017 06/15/2017 06/16/2017 acetaminophen (TYLENOL) tablet 650 mg 650 mg, oral, EVERY 4 HOURS PRN, Startin g [place] 06/12/17 at 1748, Until 06/16/17 at 1857, Pain, Routine dextromethorphan-guaifenesin (ROBITUSSIN DM) 10-100 mg /5 mL syrup 5 mL 1058 (Given - Provider: Mila Mcallister RN)2325 (Given - Provider: Licha Strong RN) 1424 (Given - Provider: Aniceto Farley RN) 5 mL, oral, EVERY 4 HOURS PRN, Starting 06/14/17 at 0835, Until 06/16/17 at 1857, Cough, Routine documented in this encounter Orders Medications Ordered That Might Not Have Count Last Ord ered Date First Ordered Date Been Administered potassium, sodium phosphates (PHOS-NAK) 2 06/17/19 280-160-250 mg packet 8 mmol fentaNYL citrate (PF) 50 mcg/mL injection 1 2017 heparin 1,000 unit/mL injection 1 06/13/2017 lidocaine 20 mg/mL (2 %) injection 1 06/13/2017 midazolam (PF) (VERSED) 1 mg/mL injection 1 2017 morphine 10 mg/mL injection 1 06/13/2017 nitroglycerin 100 mcg/mL syringe 1 06/13/2017 verapamil (ISOPTIN) 2.5 mg/mL injection 1 06/14/19 18 Procedures Count Last Ordered Date First Ordered Date ECG REPORT - SCANNED 2 06/30/2017 06/19/2017 IMPLANT RECORD - SCANNED 1 06/19/2017 Diet Count Last Ordered Date First Ordered Date DISCHARGE DIET 3 06/16/2017 Nursing Count Last Ordered Date First Ordered Date ACTIVITY INSTRUCTIONS 1 06/16/2017 BATHING INSTRUCTIONS 1 06/16/2017 SUSPEND TELEMETRY FOR PROCEDURE 1 06/13/2017 CIWA SCORING 1 06/12/2017 INSERT SALINE LOCK 1 06/12/2017 MEASURE WEIGHT 1 06/12/2017 NOTIFY TANK TRUCK MILK RECEIVER 1 06/12/2017 VTE PHARMACOLOGIC PROPHYLAXIS CURRENTLY 1 06/13/19 18 ORDERED OR ON ALTERNATIVE THER IV Count Last Ordered Date First Ordered Date IV REQUEST 3 06/13/2017 06/12/2017 Admission Count Last Ordered Date First Ordered Date STATUS: INPATIENT ACUTE ADMISSION 1 06/12/2017 Transfer Count Last Ordered Date First Ordered Date NOTIFY PPS OF DISCHARGE COMPLETE 1 06/16/2017 UR PATIENT STATUS CHANGE 1 06/13/2017 Discharge Count Last Ordered Date First Ordered Date DISCHARGE PATIENT 1 06/16/2017 Legal Count Last Ordered Date First Ordered Date MISCELLANEOUS DISCHARGE INSTRUCTIONS 2 06/16/2017 documented in this encounter Care Teams Residential Nurse Relationship Specialty Start Date End Date Katia Mccallum PA-C PCP - General 05/02/[address] [place] [id number] documented as of this encounter
--- OUTSIDE RECORDS SUMMARY | 2021-09-28 02:21 | XMS_ITS | Encounter Summary ---
:1950 Author Organization [facility] Address [address] [place] [id number] Care Team Providers Name Role Phone Katia Mccallum PA-C Primary Care Provider [phone] Reason for Visit Reason Onset Date Comments Other 05/29/2017 Encounter Details Date Type Department Care Team Description 05/29/2017 Telephone [facility] Cardiology - Melly Mariee RN Other Chaitanya Oconnor [place], [place] [address] Social History Tobacco Use [...] this encounter Miscellaneous Notes Telephone Encounter - Daija Mariee RN - 05/29/2017 1056 EDT Let pt know that I talked with Caitie Atwood NP and he can take the ibuprofen three times daily if he needs to for pain. Pt states he is not having pain. Per Caitie Atwood NP- the pacer pain was likely nerve or muscular pain. Pt aware. No barriers identified. Requested pt call with any changes or problems LM on Yessica's direct number re: my conversation with pt and Caitie Atwood NP. Requested call back with any questions elephone Encounter - Daija Mariee RN - 05/29/2017 1018 EDT Spoke with nurse Yessica at [facility] She spoke with pt today and he had 2 episodes of sharp pains that lasted seconds at the pacemaker site Yessica- RN would like a call back with plan She states pt has had a 11# weight gain, denies shortness of breath Daughter in law takes care of meds- [phone] Spoke with pt- he had 2 quick jabs over the area of pacemaker, lasted seconds, brought tears to his eyes. Occurred while he was at rest. Breathing has been good. Reviewed meds with pt: Taking torsemide 20 mg twice daily Colchicine twice daily Ibuprofen 600 mg twice daily- not taking three times daily Has not missed any doses Pt states his weight was 224# yesterday. Checked weight 234# and then 225.8# a bit later No swelling in legs Pt thinks he is doing well and will call with any changes documented in this encounter Plan of Treatment Not on filedocumented as of this encounter Visit Diagnoses Not on filedocumented in this encounter Care Teams Pool Finisher Relationship Specialty Start Date End Date Katia Mccallum PA-C PCP - General 05/02/[address] [place] [id number] documented as of this encounter
--- OUTSIDE RECORDS SUMMARY | 2021-09-28 02:22 | XMS_ITS | Encounter Summary ---
:1950 Author Organization [facility] [place] [address] Care Team Providers Name Role Phone Katia Mccallum Primary Care Provider Reason for Referral Diagnostic Test (Routine) - Closed Specialty Diagnoses / Procedures Referred By Contact Refer red To Contact Radiology Diagnoses Abdominal visceral abscess Virginia Price, [facility] Rad Ct Scan Procedures CT Guided Drain Peritoneal [address] [place] [address] [address] [place] [id number] Referral ID Status Reason Start Date Expiration Date Visits V isits Requested Authorized [id number] Closed Specialty 07/09/2021 01/09/2023 1 1 Service Requested Reason for Visit Diagnostic Test (Routine) - Closed Specialty Diagnoses / Procedures Referred By Contact Refer red To Contact Radiology Diagnoses Abdominal visceral abscess Virginia Price DO [facility] Rad Ct Scan Procedures CT Guided Drain Peritoneal [address] [place] [address] [address] [place] [id number] Referral ID Status Reason Start Date Expiration Date Visits V isits Requested Authorized [id number] Closed Specialty 07/09/2021 01/09/2023 1 1 Service Requested Encounter Details Date Type Department Care Team Description 07/10/[address] [place] [facility] [place] Price, Abdominal visceral [facility] abscess (Primary Dx) Drive [address] [place] [address] [address] [id number] [place] [address] Social History Tobacco Use Types Packs/Day Years Used Date Never Assessed Sex Assigned at Date Recorded Not on file documented as of this encounter Last Filed Vital Signs Vital Sign Reading Time Taken Comments Blood Pressure 120/98 07/10/2021 12:30 PM EDT Pulse 73 07/10/2021 12:15 PM EDT Temperature 36.7 ??C (98 ??F) 07/10/2021 12:15 PM EDT Respiratory Rate 20 07/10/2021 12:30 PM EDT Oxygen Saturation 100% 07/10/2021 12:15 PM EDT Inhaled Oxygen Concentration - - Weight - - Height - - Body Mass Index - - documented in this encounter Discharge Instructions Discharge InstructionsMarilyn Duncan RN - 07/10/2021 11:44 AM EDT Images from the original note were not included. INTERVENTIONAL RADIOLOGY DRAIN CARE INSTRUCTIONS Drains help to keep fluid from collecting by removing the extra blood and fluid from under the skin or from an abscess within the body. A drain is temporary. It stays in place until the drainage has slowed down or stopped. Your Provider will decide when each drain should be removed. This is usually after each drain has 30cc or less in 24 hours for 2-3 days in a row. You will then be scheduled for what is called a Sinogram to check and see if the fluid collection has gotten smaller. How do I care for the drains at home? Pin your drain/s to your clothing by using a safety pin through the plastic loop on the top of the bulb. If the drain is not attached to your clothing, it may pullout from under your skin. Also, a drain usually feels more comfortable when it???s attached. To carefor the drain at home, you will have to empty the drain, ???strip?? the drain tubing, and change the dressing if applicable. * See the following information on instructions on how to do this. You will go home with a dressing over the insertion site. Usually, Visiting Nurses are set up to show you how to change the dressing and care for the drain. They may teach a family member if they are willing. The dressing needs to only be change once a week provided there is no leakage around the tube. What problems may I have with my drain? The bulb is not compressed- The bulb may not be squeezed tightly enough, the plug may not be closed securely, or the tube has slipped out a bit and is leaking. Follow the instructions on how to empty the drain. If the bulb remains expanded, then notify your doctor or nurse during business hours. No drainage or sudden decrease in amount of drainage- This may be due to a plug in the drain. Pleasenotify your doctor or nurse during business hours. The tube accidentally falls out- If this happens, place a dry gauze dressing over the drain site andnotify your doctor or nurse during business hours. Increased redness, swelling, or heat around the tube insertion site- This may be a sign of infection. Take your temperature: if it is higher than 101F or 38.8C, call your doctor or nurse immediately. Otherwise, notify your doctor or nurse during business hours and keep the dressing clean and dry. How to Empty Your Drain and flush drain Note: Wash your hands thoroughly before emptying your drain(s). Unpin the drain from your clothing. 1. Turn the white stopcock so it is not parallel (in line) with the tubing. 2. Unscrew the tubing with the bulb attached from stopcock. Make sure you keep everything clean. 3. Attach the syringe with sterile saline to the stopcock. 4. Inject saline per MD order, 3-5 cc's. Forward flush only, do not aspirate back. 5. Re-attach the tubing with the bulb to the stopcock. 6. Invert the bulb and pull open the plug. 7. Have the plastic measuring cup from the hospital ready to collect and measure the drainage. Please measure the output at the same time every 24 hours and record the amount. 8. Turn the drain upside down and squeeze the contents of the bulb into the measuring cup. Be sure to empty the bulb as completely as possible. Flush the contents in the toilet. 9. Use the drain output log chart to record the amount of drainage twice a day or any time the bulb is full. Record the total for 24 hours for each drain you have. 10. If you have more than one drain, remember to record the drainage from each drain separately. 11. To prevent infection, do not let the stopper or top of the bottle touch the measuring cup or anyother surface. Use one hand to squeeze all of the air from the drain. With the drain still squeezed, use your otherhand to replace the top. This creates the suction necessary to remove the fluids from your body. Pin the drain back on your clothing to avoid pulling it out accidently. Wash your hands again. Remember to wash your hands before and after the procedure to reduce the riskof infection. Flushing the Drain: Your doctor may want the drain to be flushed once or twice daily to keep the fluid from plugging the drain. Flush the drain with 3-5 cc daily with the syringes supplied to you. FORWARD FLUSH ONLY, DO NOT ASPIRATE BACK. When to call the Interventional Radiology Department: Please call with any questions or concerns. Ifit is during regular office hours, please call [phone]. If it is after regular office hours, oron weekends or holidays, please call [phone] and ask to speak to the Tile Burner on callfor Interventional Radiology. XX You have received medication during your procedure to help lessen anxiety and keep you comfortable. These medications affect judgement and reaction time. We recommend that you do not drive, operateequipment, sign any important documents, or smoke unattended for 24 hours following your procedure. Because of the sedation, be careful on stairs, as you may be unsteady on your feet. You may resume your regular diet as tolerated. IV site -- slight redness, or tenderness is normal, you can use a warm compress. If tenderness and redness increases or foul drainage occurs, please contact your M. D. Revised 12/17/18 Drainage Record NAME: Date of Surgery: Date: Time: If more than one drain, which one: Drainage Amount (per drain) Total Amount (per drain; in 24 hours) documented in this encounter Progress Notes Pily Porter RN - 07/10/2021 1:11 PM EDT Pt ready for discharge back to transfer hospital. Report called to receiving nurse. Report given to transport service. Marilyn Duncan RN - 07/10/2021 11:06 AM EDT ANGIO NURSING DATABASE Name: DAVID FARFAN Date of : 1950 AGE: 70 y.o. [facility] [address] [place] [phone] (home) Mobile: No relevant phone numbers on file. Referring Provider: Virginia Pirce REASON FOR VISIT: Order Questions Answers Where will study be performed? [facility] Radiology [120] Is the patient on anticoagulant / antiplatelet therapy ? No Does the patient have any pertinent outside imaging? Yes Reason for exam and clinical history: CT guided drainag plmt of abdominal abscess. Possible drainageof left chest fluid collection. Clinical information / castillo questions for radiologist: Outside order- in media tab Plan Planned procedure: CT-guided RUQ and left hemithoracic drain placements (07/09/21 1528) Sedation: Moderate (Conscious sedation) (07/09/21 1528) Prophylactic antibiotic : None (07/09/21 152) Contrast: No contrast (07/09/21 152) Additional medications for procedure: Lidocaine (07/09/21 1528) Position: Supine (07/09/21 1528) Consent: Pending (07/09/21 152) Medications to discontinue (and days held): None (07/09/21 152) Cytopathology presence needed: No (07/09/21 152) Not on File Pertinent PMH: There is no problem list on file for this patient. Pertinent PSH: No past surgical history on file. Date/Procedure Meds given/comments 07/10/21 CT guided peritoneal drain/L pleural drain placement Fentanyl 125 mcg IV; Versed 2 mg IV; tolerated well 1055 to procedure room CT1 via stretcher. Onto table supine. All monitors, O2, safety strap in place. Meds per protocol. Laboratory Results: documented in this encounter H&P Notes Vick Boss MD - 07/10/2021 10:00 AM EDT INTERVENTIONAL RADIOLOGY FOCUSED H&P: Procedure: Planned procedure: CT-guided RUQ and left hemithoracic drain placements Update to H&P: The patient's history and physical exam have been reviewed and completed. There has been NO intervalchange from that of the pre-procedural note done within the last 30 days. There is NO change in the procedural plan. Physical Exam: Cardiovascular: Regular, Normal Pulmonary: diminished BS on left Abdomen: RUQ tenderness Vascular: NA Meds: Current medications reviewed. No medications held. Labs: No new relevant labs. The planned procedure (and sedation plan if appropriate) , its benefits and risks, and alternatives were discussed with the patient. The patient consented to the procedure. PRE-SEDATION ASSESSMENT: Sedation Plan: moderate (conscious sedation) ASA: 3: Patient with severe systemic disease Mallampati: III: only the base of the uvula can be seen Confirm NPO status: Yes History of anesthetic complications: No Current medications reviewed: Yes Allergies reviewed: Yes Source Note - Seng Urbano PA - 07/09/2021 3:33 PM EDT Images from the original note were not included. Interventional Radiology Focused Pre-procedure H&P: PCP: GIRISH Johnson Referring Provider: Virginia Price DO Planned procedure: CT-guided RUQ and left hemithoracic drain placements Procedure indication: RUQ pain, leukocytosis, collections on CT imaging IR workflow: Interventional Radiology Service contacted by TC at 1400 regarding the procedure request below. Order Questions Answers Where will study be performed? [facility] Radiology [120] Is the patient on anticoagulant / antiplatelet therapy ? No Does the patient have any pertinent outside imaging? Yes Reason for exam and clinical history: CT guided drainag plmt of abdominal abscess. Possible drainageof left chest fluid collection. Clinical information / castillo questions for radiologist: Outside order- in media tab History of present illness: Per chart review, David Farfan is a 70 y.o. male who presents to Interventional Radiology to undergo RUQ and left hemithoracic drain placements in setting of recent cholecystectomy. This is a patient with longstanding RUQ pain who recently underwent lap cholecystectomy. IR was previously consulted for drainage on 06/26 but procedure was not pursued. Per discussion with referring provider, the patient is hemodynamically stable but was found to have new leukocytosis which prompted ev aluation by CT. This demonstrated interval progression of collection in the gallbladder fossa as well as persistent left pleural collection. Of note, scanned document indicates that [facility] evaluated the patient's pleural collection previously and found it to be chronic. Outside chart indicates he is a DNR. Medical history notable for COPD, CAD, HTN. Remainder of patient's medical and surgical history, allergies, medications, and social/family history obtained below as previously outlined in patient's medical record. Platelet 331 (06/25/21) INR 1.0 (06/21/21) Plan or recommendation formulated in discussion with and directed by Interventional Radiology attending physician Leena. IR history: none Imaging: Assessment: 70 y.o. male with leukocytosis and collection on CT following cholecystectomy presentingto Interventional Radiology for drainage of RUQ and possibly left pleural collections. Plan Planned procedure: CT-guided RUQ and left hemithoracic drain placements Labs to be performed day of procedure: No labs Sedation: Moderate (Conscious sedation) Prophylactic antibiotic : None Contrast: No contrast Additional medications for procedure: Lidocaine Position: Supine Consent: Pending Medications to discontinue (and days held): None Cytopathology presence needed: No Allergies: Patient has no allergy information on record. Medications: No current outpatient medications on file prior to encounter. No current facility-administered medications on file prior to encounter. Past medical/surgical history: There is no problem list on file for this patient. No past medical history on file. No past surgical history on file. Social history and habits: Significant family history: No family history on file. Pertinent ROS: as per HPI Physical exam: Pending (to be performed in interventional radiology the day of procedure) ASA: Pending (to be assessed in interventional radiology the day of procedure) Mallampati class: Pending (to be assessed in interventional radiology the day of procedure) 07/09/2021 GIRISH Pearce Seng Urbano PA - 07/09/2021 3:33 PM EDT Images from the original note were not included. Interventional Radiology Focused Pre-procedure H&P: PCP: GIRISH Johnson Referring Provider: Virginia Price DO Planned procedure: CT-guided RUQ and left hemithoracic drain placements Procedure indication: RUQ pain, leukocytosis, collections on CT imaging IR workflow: Interventional Radiology Service contacted by TC at 1400 regarding the procedure request below. Order Questions Answers Where will study be performed? [facility] Radiology [120] Is the patient on anticoagulant / antiplatelet therapy ? No Does the patient have any pertinent outside imaging? Yes Reason for exam and clinical history: CT guided drainag plmt of abdominal abscess. Possible drainageof left chest fluid collection. Clinical information / castillo questions for radiologist: Outside order- in media tab History of present illness: Per chart review, David Farfan is a 70 y.o. male who presents to Interventional Radiology to undergo RUQ and left hemithoracic drain placements in setting of recent cholecystectomy. This is a patient with longstanding RUQ pain who recently underwent lap cholecystectomy. IR was previously consulted for drainage on 06/26 but procedure was not pursued. Per discussion with referring provider, the patient is hemodynamically stable but was found to have new leukocytosis which prompted ev aluation by CT. This demonstrated interval progression of collection in the gallbladder fossa as well as persistent left pleural collection. Of note, scanned document indicates that [facility] evaluated the patient's pleural collection previously and found it to be chronic. Outside chart indicates he is a DNR. Medical history notable for COPD, CAD, HTN. Remainder of patient's medical and surgical history, allergies, medications, and social/family history obtained below as previously outlined in patient's medical record. Platelet 331 (06/25/21) INR 1.0 (06/21/21) Plan or recommendation formulated in discussion with and directed by Interventional Radiology attending physician Leena. IR history: none Imaging: Assessment: 70 y.o. male with leukocytosis and collection on CT following cholecystectomy presentingto Interventional Radiology for drainage of RUQ and possibly left pleural collections. Plan Planned procedure: CT-guided RUQ and left hemithoracic drain placements Labs to be performed day of procedure: No labs Sedation: Moderate (Conscious sedation) Prophylactic antibiotic : None Contrast: No contrast Additional medications for procedure: Lidocaine Position: Supine Consent: Pending Medications to discontinue (and days held): None Cytopathology presence needed: No Allergies: Patient has no allergy information on record. Medications: No current outpatient medications on file prior to encounter. No current facility-administered medications on file prior to encounter. Past medical/surgical history: There is no problem list on file for this patient. No past medical history on file. No past surgical history on file. Social history and habits: Significant family history: No family history on file. Pertinent ROS: as per HPI Physical exam: Pending (to be performed in interventional radiology the day of procedure) ASA: Pending (to be assessed in interventional radiology the day of procedure) Mallampati class: Pending (to be assessed in interventional radiology the day of procedure) 07/09/2021 GIRISH Pearce documented in this encounter Miscellaneous Notes Brief Op Note - Vick Boss MD - 07/10/2021 12:07 PM EDT INTERVENTIONAL RADIOLOGY BRIEF PROCEDURE NOTE Patient Name: David Farfan : 1950 Case Date: 07/10/2021 Operators: Attending: Karyn Resident/Fellow/Student: none Post-operative diagnosis/Indication: leukocytosis, GB fossa and left pleural collections Name of Procedure Performed: Planned procedure: CT-guided RUQ and left hemithoracic drain placements Brief description of the procedure: ?? 10 Fr drain placement in gallbladder fossa collection ?? 10 Fr drain placement in left pleural effuison Findings of the procedure: ?? Drains in target collections ?? 120 mL brown cloudy fluid removed from GB fossa collection ?? 30 mL brown bloody fluid removed from left pleural collection EBL: <10 mL Specimens: aspirate for culture Complications: No immediate Plan/Disposition: Return to [facility] GB fossa drain to bulb suction Left pleural drain to pleurvac Call placed to Dr. Price to discuss GB drain follow up but she was in a case and message left to call back. FULL PROCEDURE NOTE TO FOLLOW IN IMAGE REPORT documented in this encounter Plan of Treatment Not on filedocumented as of this encounter Procedures Procedure Name Priority Date/Time Associated Comments Diagnosis CT GUIDED DRAIN Routine 07/10/2021 12:19 PM Resul ts for this CHEST TUBE/PLEURAL EDT procedure are in DRAIN the results section. CT PERITONEAL Routine 07/10/2021 12:19 PM Abdominal visceral R esults for this DRAINAGE EDT abscess procedure are i n the results section. ANAEROBIC CULTURE Routine 07/10/2021 11:45 AM Res ults for this EDT procedure are i n the results section. HC CONC. FOR Routine 07/10/2021 11:45 AM INFECTIOUS AGENTS EDT BODY FLUID CULTURE, Routine 07/10/2021 11:45 AM R esults for this AEROBIC EDT procedure are i n the results section. ANAEROBIC CULTURE Routine 07/10/2021 11:20 AM Res ults for this EDT procedure are i n the results section. HC GRAM STAIN FOR Routine 07/10/2021 11:20 AM BACTERIA EDT BODY FLUID CULTURE, Routine 07/10/2021 11:20 AM R esults for this AEROBIC EDT procedure are i n the results section. documented in this encounter Results CT Guided Drain Peritoneal (07/10/2021 12:19 PM EDT) Anatomical Region Laterality Modality Computed Tomography Specimen (Source) Anatomical Location Collection Method / Collectio n Time Received Time / Laterality Volume Impressions 07/11/2021 10:21 AM EDT 1. ??Percutaneous placement of a 10 Fren ch drainage catheter into gallbladder fossa abscess/biloma, yielding 120 mL of cloudy brown fluid. 2. ??Left-sided 10 [place] chest tube guicho cement, yielding 30 mL of cloudy brown. Plan: 1. ??To IR recovery then transfer back [facility]. 2. ??Awaiting return call from reji stroud provider to discuss local follow-up of drains versus return to IR for drain follow-up. PROCEDURE SUMMARY: - Intraperitoneal drainage catheter plac ement under CT guidance - Percutaneous pleural drainage with ins ertion of indwelling catheter under CT guidance - Additional procedure(s): None PROCEDURE DETAILS: Pre-procedure Consent: Informed consent for the proced ure including risks, benefits and alternatives was obtained and time-out w as performed prior to the procedure. Preparation: The site was prepared and d raped using maximal sterile barrier technique including cutaneous antisepsis . Anesthesia/sedation Level of anesthesia/sedation: Moderate s edation (conscious sedation) Anesthesia/sedation administered by: Ind ependent trained observer under attending supervision with continuous mo nitoring of the patients level of consciousness and physiologic status Total intra-service sedation time (minut es): See electronic medical record Drainage catheter placement The patient was positioned supine. Initi al imaging was performed. Local anesthesia was administered. The fluid c ollection was accessed using an access needle followed by wire insertion and se rial dilation and a drainage catheter was placed. Position of the drainage cat heter within the fluid collection was confirmed. - Initial imaging findings: Air-fluid co ntaining collection within the gallbladder fossa - Drainage catheter placed: Multipurpose drainage catheter - External catheter securement: Non-abso rbable suture and adhesive anchoring device - Post-drainage imaging findings: Near-c omplete drainage of the fluid collection Chest tube placement The patient was positioned right lateral decubitus oblique. Initial imaging was performed. Local anesthesia was administ ered. The pleural space was accessed using an access needle followed by wire insertion and serial dilation and a drainage catheter was placed. Position o f the drainage catheter within the pleural space was confirmed. - Initial imaging findings: Moderate to large volume loculated LEFT pleural fluid - Drainage catheter placed: Multipurpose drainage catheter - External catheter securement: Non-abso rbable suture - Post-drainage imaging findings: Other- drain within the target fluid collection. - Additional findings: None Contrast Contrast agent: None Contrast volume (mL): [address] dose length product (mGy-cm): 1969 Additional Details Additional description of procedure: Non e Equipment details: None Specimens removed: Aspirated fluid was s ent for analysis. Estimated blood loss (mL): Less than 10 Standardized report: [email or web address] v3 Attestation Signer name: Vick Boss MD I attest that I performed the procedure. I reviewed the stored images and agree with the report as written. Sedation attestation: I was present duri ng the intra-service time as documented by IR nurse. Thank you for letting us participate in the care of this patient. ??If you are a health care provider and have any questi ons regarding this report, please contact the number below. ??For patients who have questions please contact the health healthcare administration internship that requested your imaging first. ? Narrative 07/11/2021 10:21 AM EDT PROCEDURE: Drainage catheter placement Procedural Personnel Attending physician(s): Vick Boss MD Fellow physician(s): None Resident physician(s): None Advanced practice provider(s): None Pre-procedure diagnosis: Postoperative f luid collection, leukocytosis, loculated pleural effusion Post-procedure diagnosis: Same Indication: Leukocytosis with fluid ita ection Additional clinical history: None Complications: No immediate complication s. Procedure Note Vick Boss MD - 07/11/2021Form atting of this note might be different from the original. PROCEDURE: Drainage catheter placement Procedural Personnel Attending physician(s): Vick Boss MD Fellow physician(s): None Resident physician(s): None Advanced practice provider(s): None Pre-procedure diagnosis: Postoperative f luid collection, leukocytosis, loculated pleural effusion Post-procedure diagnosis: Same Indication: Leukocytosis with fluid ita ection Additional clinical history: None Complications: No immediate complication s. IMPRESSION 1. Percutaneous placement of a 10 [place] drainage catheter into gallbladder fossa abscess/biloma, yielding 120 mL of cloudy brown fluid. 2. Left-sided [address] [place] [address] ment, yielding 30 mL of cloudy brown. Plan: 1. To IR recovery then transfer back to [facility]. 2. Awaiting return call from requesting provider to discuss local follow-up of drains versus return to IR for drain follow-up. PROCEDURE SUMMARY: - Intraperitoneal drainage catheter plac ement under CT guidance - Percutaneous pleural drainage with ins ertion of indwelling catheter under CT guidance - Additional procedure(s): None PROCEDURE DETAILS: Pre-procedure Consent: Informed consent for the proced ure including risks, benefits and alternatives was obtained and time-out w as performed prior to the procedure. Preparation: The site was prepared and d raped using maximal sterile barrier technique including cutaneous antisepsis . Anesthesia/sedation Level of anesthesia/sedation: Moderate s edation (conscious sedation) Anesthesia/sedation administered by: Ind ependent trained observer under attending supervision with continuous mo nitoring of the patients level of consciousness and physiologic status Total intra-service sedation time (minut es): See electronic medical record Drainage catheter placement The patient was positioned supine. Initi al imaging was performed. Local anesthesia was administered. The fluid c ollection was accessed using an access needle followed by wire insertion and se rial dilation and a drainage catheter was placed. Position of the drainage cat heter within the fluid collection was confirmed. - Initial imaging findings: Air-fluid co ntaining collection within the gallbladder fossa - Drainage catheter placed: Multipurpose drainage catheter - External catheter securement: Non-abso rbable suture and adhesive anchoring device - Post-drainage imaging findings: Near-c omplete drainage of the fluid collection Chest tube placement The patient was positioned right lateral decubitus oblique. Initial imaging was performed. Local anesthesia was administ ered. The pleural space was accessed using an access needle followed by wire insertion and serial dilation and a drainage catheter was placed. Position o f the drainage catheter within the pleural space was confirmed. - Initial imaging findings: Moderate to large volume loculated LEFT pleural fluid - Drainage catheter placed: Multipurpose drainage catheter - External catheter securement: Non-abso rbable suture - Post-drainage imaging findings: Other- drain within the target fluid collection. - Additional findings: None Contrast Contrast agent: None Contrast volume (mL): [address] dose length product (mGy-cm): 1969 Additional Details Additional description of procedure: Non e Equipment details: None Specimens removed: Aspirated fluid was s ent for analysis. Estimated blood loss (mL): Less than 10 Standardized report: SIR_DrainPlacement_ v3 Attestation Signer name: Vick Boss MD I attest that I performed the procedure. I reviewed the stored images and agree with the report as written. Sedation attestation: I was present duri ng the intra-service time as documented by IR nurse. Thank you for letting us participate in the care of this patient. If you are a health care provider and have any questi ons regarding this report, please contact the number below. For patients w ho have questions please contact the health healthcare administration internship that requested your imaging first. Virginia Price DO IMG CT ORDERABLES CT Guided Drain Chest Tube/Pleural Drain (07/10/2021 12:19 PM EDT) Anatomical Region Laterality Modality Computed Tomography Specimen (Source) Anatomical Location Collection Method / Collectio n Time Received Time / Laterality Volume Impressions 07/11/2021 10:21 AM EDT 1. ??Percutaneous placement of a 10 Fren ch drainage catheter into gallbladder fossa abscess/biloma, yielding 120 mL of cloudy brown fluid. 2. ??Left-sided 10 [place] chest tube guicho cement, yielding 30 mL of cloudy brown. Plan: 1. ??To IR recovery then transfer back [facility]. 2. ??Awaiting return call from reji stroud provider to discuss local follow-up of drains versus return to IR for drain follow-up. PROCEDURE SUMMARY: - Intraperitoneal drainage catheter plac ement under CT guidance - Percutaneous pleural drainage with ins ertion of indwelling catheter under CT guidance - Additional procedure(s): None PROCEDURE DETAILS: Pre-procedure Consent: Informed consent for the proced ure including risks, benefits and alternatives was obtained and time-out w as performed prior to the procedure. Preparation: The site was prepared and d raped using maximal sterile barrier technique including cutaneous antisepsis . Anesthesia/sedation Level of anesthesia/sedation: Moderate s edation (conscious sedation) Anesthesia/sedation administered by: Ind ependent trained observer under attending supervision with continuous mo nitoring of the patients level of consciousness and physiologic status Total intra-service sedation time (minut es): See electronic medical record Drainage catheter placement The patient was positioned supine. Initi al imaging was performed. Local anesthesia was administered. The fluid c ollection was accessed using an access needle followed by wire insertion and se rial dilation and a drainage catheter was placed. Position of the drainage cat heter within the fluid collection was confirmed. - Initial imaging findings: Air-fluid co ntaining collection within the gallbladder fossa - Drainage catheter placed: Multipurpose drainage catheter - External catheter securement: Non-abso rbable suture and adhesive anchoring device - Post-drainage imaging findings: Near-c omplete drainage of the fluid collection Chest tube placement The patient was positioned right lateral decubitus oblique. Initial imaging was performed. Local anesthesia was administ ered. The pleural space was accessed using an access needle followed by wire insertion and serial dilation and a drainage catheter was placed. Position o f the drainage catheter within the pleural space was confirmed. - Initial imaging findings: Moderate to large volume loculated LEFT pleural fluid - Drainage catheter placed: Multipurpose drainage catheter - External catheter securement: Non-abso rbable suture - Post-drainage imaging findings: Other- drain within the target fluid collection. - Additional findings: None Contrast Contrast agent: None Contrast volume (mL): [address] dose length product (mGy-cm): 1969 Additional Details Additional description of procedure: Non e Equipment details: None Specimens removed: Aspirated fluid was s ent for analysis. Estimated blood loss (mL): Less than 10 Standardized report: [email or web address]_DrainPlacement_ v3 Attestation Signer name: Vick Boss MD I attest that I performed the procedure. I reviewed the stored images and agree with the report as written. Sedation attestation: I was present duri ng the intra-service time as documented by IR nurse. Thank you for letting us participate in the care of this patient. ??If you are a health care provider and have any questi ons regarding this report, please contact the number below. ??For patients who have questions please contact the health healthcare administration internship that requested your imaging first. ? Narrative 07/11/2021 10:21 AM EDT PROCEDURE: Drainage catheter placement Procedural Personnel Attending physician(s): Vick Boss MD Fellow physician(s): None Resident physician(s): None Advanced practice provider(s): None Pre-procedure diagnosis: Postoperative f luid collection, leukocytosis, loculated pleural effusion Post-procedure diagnosis: Same Indication: Leukocytosis with fluid ita ection Additional clinical history: None Complications: No immediate complication s. Procedure Note Vick Boss MD - 07/11/2021Form atting of this note might be different from the original. PROCEDURE: Drainage catheter placement Procedural Personnel Attending physician(s): Vick Boss MD Fellow physician(s): None Resident physician(s): None Advanced practice provider(s): None Pre-procedure diagnosis: Postoperative f luid collection, leukocytosis, loculated pleural effusion Post-procedure diagnosis: Same Indication: Leukocytosis with fluid ita ection Additional clinical history: None Complications: No immediate complication s. IMPRESSION 1. Percutaneous placement of a 10 [place] drainage catheter into gallbladder fossa abscess/biloma, yielding 120 mL of cloudy brown fluid. 2. Left-sided [address] [place] [address] ment, yielding 30 mL of cloudy brown. Plan: 1. To IR recovery then transfer back to [facility]. 2. Awaiting return call from requesting provider to discuss local follow-up of drains versus return to IR for drain follow-up. PROCEDURE SUMMARY: - Intraperitoneal drainage catheter plac ement under CT guidance - Percutaneous pleural drainage with ins ertion of indwelling catheter under CT guidance - Additional procedure(s): None PROCEDURE DETAILS: Pre-procedure Consent: Informed consent for the proced ure including risks, benefits and alternatives was obtained and time-out w as performed prior to the procedure. Preparation: The site was prepared and d raped using maximal sterile barrier technique including cutaneous antisepsis . Anesthesia/sedation Level of anesthesia/sedation: Moderate s edation (conscious sedation) Anesthesia/sedation administered by: Ind ependent trained observer under attending supervision with continuous mo nitoring of the patients level of consciousness and physiologic status Total intra-service sedation time (minut es): See electronic medical record Drainage catheter placement The patient was positioned supine. Initi al imaging was performed. Local anesthesia was administered. The fluid c ollection was accessed using an access needle followed by wire insertion and se rial dilation and a drainage catheter was placed. Position of the drainage cat heter within the fluid collection was confirmed. - Initial imaging findings: Air-fluid co ntaining collection within the gallbladder fossa - Drainage catheter placed: Multipurpose drainage catheter - External catheter securement: Non-abso rbable suture and adhesive anchoring device - Post-drainage imaging findings: Near-c omplete drainage of the fluid collection Chest tube placement The patient was positioned right lateral decubitus oblique. Initial imaging was performed. Local anesthesia was administ ered. The pleural space was accessed using an access needle followed by wire insertion and serial dilation and a drainage catheter was placed. Position o f the drainage catheter within the pleural space was confirmed. - Initial imaging findings: Moderate to large volume loculated LEFT pleural fluid - Drainage catheter placed: Multipurpose drainage catheter - External catheter securement: Non-abso rbable suture - Post-drainage imaging findings: Other- drain within the target fluid collection. - Additional findings: None Contrast Contrast agent: None Contrast volume (mL): [address] dose length product (mGy-cm): 1969 Additional Details Additional description of procedure: Non e Equipment details: None Specimens removed: Aspirated fluid was s ent for analysis. Estimated blood loss (mL): Less than 10 Standardized report: SIR_DrainPlacement_ v3 Attestation Signer name: Vick Boss MD I attest that I performed the procedure. I reviewed the stored images and agree with the report as written. Sedation attestation: I was present duri ng the intra-service time as documented by IR nurse. Thank you for letting us participate in the care of this patient. If you are a health care provider and have any questi ons regarding this report, please contact the number below. For patients w ho have questions please contact the health healthcare administration internship that requested your imaging first. Virginia Price DO IMG CT ORDERABLES Anaerobic Culture (07/10/2021 11:45 AM EDT) [facility] Method Time Signature Anaerobic No anaerobic [facility] Culture organisms [facility] Specimen Anatomical Collection Method Collection Time Receive d Time (Source) Location / / Volume Laterality Fluid 07/10/2021 11:45 07/10/2021 AM EDT 12:24 PM EDT Comment: Left chest tube placement. Resulting Agency Comment Spec In Lab Vick Boss MD MICROBIOLOGY - GENERAL ORDER [facility] Performing Organization Address City/State/[place] [address] Body Fluid Culture, Aerobic (07/10/2021 11:45 AM EDT) Component Value Ref Test Analysis Performed At [facility] Range Method Time Signature Body Fluid No growth TAJ Culture [facility] Gram Stain Cytocentrifuge Gram Stain performed [facility] No Neutrophils seen. [place] No microorganisms seen. [facility] Specimen Anatomical Collection Method Collection Time Receive d Time (Source) Location / / Volume Laterality Fluid 07/10/2021 11:45 07/10/2021 AM EDT 12:24 PM EDT Comment: Left chest tube placement. Resulting Agency Comment Spec In Lab Vick Boss MD MICROBIOLOGY - GENERAL ORDER [facility] Performing Organization Address City/State/[place] [address] Anaerobic Culture (07/10/2021 11:20 AM EDT) [facility] Method Time Signature Anaerobic No anaerobic [facility] [place] Culture organisms [facility] Specimen (Source) Anatomical Collection Method Collection Time Re ceived Time Location / / Volume Laterality Abdominal Fluid 07/10/2021 11:20 07/11/19 22 AM EDT 12:25 PM EDT Comment: 70 y.o. male with leukocytosis and collection on CT following cholecystectomy presenting to Interventi onal Radiology for drainage Resulting Agency Comment Spec In Lab Vick Boss MD MICROBIOLOGY - GENERAL ORDER [facility] Performing Organization Address City/State/[place] [address] (ABNORMAL) Body Fluid Culture, Aerobic (07/10/2021 11:20 AM EDT) Component Value Ref Test Analysis Performed At [facility] Range Method Time Signature Body Fluid Few Escherichia TAJ Culture coli (A) [facility] Gram Stain Cytocentrifuge Gram Stain performed TAJ Olson tatum [place] Few Gram Negative Rods [facility] Organism Escherichia coli TAJ (A) [facility] Specimen (Source) Anatomical Collection Method Collection Time Re ceived Time Location / / Volume Laterality Abdominal Fluid 07/10/2021 11:20 07/11/19 22 AM EDT 12:25 PM EDT Comment: 70 y.o. male with leukocytosis and collection on CT following cholecystectomy presenting to Interventi onal Radiology for drainage Resulting Agency Comment Spec In Lab Organism Antibiotic Method Susceptibility Escherichia coli Amikacin VITEK 2 METHOD Sensitive Escherichia coli Ampicillin + Sulbactam VITEK 2 METHOD Sensitiv e Escherichia coli Aztreonam VITEK 2 METHOD Sensitive Escherichia coli Cefepime VITEK 2 METHOD <=1: Sensitive Escherichia coli Ceftazidime VITEK 2 METHOD <=1: Sensitive Escherichia coli Ceftriaxone VITEK 2 METHOD Sensitive Escherichia coli Ertapenem VITEK 2 METHOD Sensitive Escherichia coli Gentamicin VITEK 2 METHOD Sensitive Escherichia coli Levofloxacin VITEK 2 METHOD Sensitive Comment: Levofloxacin and Ciprofloxac in may not adequately treat infections in critically ill patients even when isolates test susceptible in the laboratory. Contact Infectious Disease b efore using in critically ill patients. Escherichia coli Meropenem VITEK 2 METHOD <=0.25: Sensiti ve Escherichia coli Piperacillin/Tazobactam VITEK 2 METHOD <=4: Se nsitive Escherichia coli Tetracycline VITEK 2 METHOD Sensitive Escherichia coli Tigecycline VITEK 2 METHOD Sensitive Escherichia coli Tobramycin VITEK 2 METHOD Sensitive Escherichia coli Trimethoprim/Sulfa VITEK 2 METHOD Sensitive Vick Boss MD MICROBIOLOGY - GENERAL ORDER [place] Performing Organization Address City/State/[place] [address] documented in this encounter Visit Diagnoses Diagnosis Abdominal visceral abscess - Primary Cellulitis and abscess of other specifie d site documented in this encounter Administered Medications Inactive Administered Medications - up to 3 most recent administrations Medication Order MAR Action Action Date Dose Rate Site fentaNYL (pf) (50 mcg/mL) Given 07/10/2021 11:55 AM EDT 25 mcg multi-dose injection 25-50 mcg 25-50 mcg, Intravenous, EVERY 3 MIN PRN, Starting on Fri07/10/21 at 1004, Until Fri07/11/21 at 0434, Pain, per unit protocol, - Start dose 50 mcg (reduce dose to 25 mcg if history of sedation sensitivity). - Titration dose 25-50 mcg IV, (based on patient response) every 3 minutes PRN, to maintain procedural pain less than 2 per pain Scale. Maximum dose: 50 mcg/dose, 250 mcg/hour For use in Interventional Radiology (IR) only for procedural sedation with direct provider supervision and verbal order., Angio/IR (Day of Procedure), Routine Given 07/10/2021 11:45 AM EDT 25 mcg Given 07/10/2021 11:39 AM EDT 25 mcg lidocaine (Xylocaine) 1% (10 mg/mL) injection Given 11:20 AM EDT 10 mg 10 mg 10 mg, Subcutaneous, ONCE, 1 dose, On Fri07/10/21 at 1030, For use in Interventional Radiology (IR) only for procedure with direct provider supervision and verbal order., Angio/IR (Day of Procedure), Routine midazolam (pf) (Versed) (1 mg/mL) multi-dose Given 12/2021 11:45 AM EDT 0.5 mg injection 0.5-1 mg 0.5-1 mg, Intravenous, EVERY 3 MIN PRN, Starting on Fri07/10/21 at 1004, Until Fri07/11/21 at 0434, Sleep, - Start dose; 1 mg (Reduce dose to 0.5 mg if history of sedation sensitivity). - Titration dose: 0.5 mg - 1 mg (based on patient response) every 3 minutes PRN to obtain RASS score of -3. Maximum dose: 1 mg per dose, 5 mg/hour. For use in Interventional Radiology (IR) only for procedural sedation with direct provider supervision and verbal order., Angio/IR (Day of Procedure), Routine Given 07/10/2021 11:39 AM EDT 0.5 mg Given 07/10/2021 11:17 AM EDT 0.5 mg documented in this encounter Care Teams Lion Hunter Relationship Specialty Start Date End Date Katia Mccallum PA PCP - General General Internal Medicine 11/10/18 [address] [place] [id number] documented as of this encounter
--- OUTSIDE RECORDS SUMMARY | 2021-09-28 02:22 | XMS_ITS | Encounter Summary ---
:1950 Author Organization [facility] Address [address] [place] [address] Care Team Providers Name Role Phone None, Provider Primary Care Provider Unavailable Katia Mccallum PA-C Primary Care Provider [phone] Reason for Referral (Routine) - Receiving Office to Obtain Authorization Specialty Diagnoses / Procedures Referred By Contact Dian chou To Contact Kaity Yañez APRN [address] [phone] Referral ID Status Reason Start Expiration Visits Visits Date Date Requested Authorized [id number] Receiving Office Specialty 05/02/2017 1 1 to Obtain Services Authorization Required Comments Depending on where you live and the kind of pacemaker you have, you may be enrolled for a remote monitor. The monitor will b e mailed to you and will allow you to have your pacemaker checked over the phone fo r some scheduled checks instead of having to come into the clinic. The monitor will a lso allow you to send information about your pacemaker over the phone in the event yo u do not feel well. If you receive a remote monitor, please bring it to your next cl inic visit so you can learn how to use it. (Routine) - Receiving Office to Obtain Authorization Specialty Diagnoses / Procedures Referred By Contact Dian chou To Contact Kaity Yañez APRN [address] [phone] Referral ID Status Reason Start Expiration Visits Visits Date Date Requested Authorized [id number] Receiving Office Specialty 05/02/2017 1 1 to Obtain Services Authorization Required Comments You must contact us if we have not conta cted you or you have missed your scheduled appointment. If you have any nursing questions, joy gauthier don't hesitate to call the Cardiac Arrhythmia Service at [facility] at or , extension [phone]. For any scheduling of appointments, [facility] call [phone] or , extension [phone]. . (Routine) - Receiving Office to Obtain Authorization Specialty Diagnoses / Procedures Referred By Babatunde chou To Contact Kaity Yañez APRN [address] [phone] Referral ID Status Reason Start Expiration Visits Visits Date Date Requested Authorized [id number] Receiving Office Specialty 05/02/2017 1 1 to Obtain Services Authorization Required Comments Appointment on May 13, 2017 at 9 am for an incision site check with the nurse in the device clinic at [facility]. Phone [phone]. [facility] is located at [address] [place] [address] (Routine) - Receiving Office to Obtain Authorization Specialty Diagnoses / Procedures Referred By Contact Dian chou To Contact Kaity Yañez APRN [address] [phone] Referral ID Status Reason Start Expiration Visits Visits Date Date Requested Authorized [id number] Receiving Office Specialty 05/02/2017 1 1 to Obtain Services Authorization Required Comments Your first pacemaker check will be sched uled in three months after implant at your closest chosen clinic location. You will be reminded of this date by mail - Subsequent pacemaker clinics will be d one either once a year or twice a year depending on your device and those appoi ntments will be scheduled at your first appointment. - The [facility] Cardiology is located at [address] [facility] in [place] -Clinics are also held in [facility], [place], [place] and [facility]. I f you live in those areas, we will make arrangements for follow-up appointments in one of those clinics.. Reason for Visit Reason Comments Bradycardia Pt transferred from [place] with new complete heart block. VSS on arrival. CC DOBBS. Encounter Details Date Type Department Care Team Description 04/30/2017 - [facility] Yvon Fields MD [address] [place] [id number] Heart block AV third degree (CMS-HCC) (H CC-CMS) (Primary Dx); 05/04/2017 Encounter Cardiac/Telemetry Kenneth Hendrickson MD [address] [place] [phone] Acute on chronic diastolic congestive he art failure (CMS-HCC) (HCC-CMS) Unit Houston Corey MD [address] [facility] [address] [place] [address] [place] [id number] Social History Tobacco Use Types Packs/Day Years Used Date Never Smoker Smokeless Tobacco: Never Used Tobacco Cessation: Counseling Given: Yes Sex Assigned at Date Recorded Not on file documented as of this encounter Last Filed Vital Signs Vital Sign Reading Time Taken Comments Blood Pressure 115/79 05/04/2017 1127 EST Pulse 70 05/02/2017 0928 EST Temperature 36.4 ??C (97.5 ??F) 05/04/2017 1127 EST Respiratory Rate 18 05/04/2017 1127 EST Oxygen Saturation 99% 05/04/2017 1127 EST Inhaled Oxygen Concentration - - Weight 99.8 kg (220 lb) 04/30/2017 1641 EST Height 180.3 cm (5' 11) 04/30/2017 1900 EST Body Mass Index 30.68 04/30/2017 1641 EST documented in this encounter Functional Status Functional [...] as of this encounter Discharge Diagnoses Diagnosis I44.2 Atrioventricular block, complete-I 44.2[ICD-10-CM] I50.33 Acute on chronic diastolic (conge stive) heart failure-I50.33[ICD-10-CM] F17.220 Nicotine dependence, chewing tob acco, uncomplicated-F17.220[ICD-10-CM] 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[ICD-10-CM] I11.0 Hypertensive heart disease with he art failure-I11.0[ICD-10-CM] E83.42 HYPOMAGNESEMIA[ICD-10-CM] documented in this encounter Discharge Summaries Amelia Partida MD - 05/04/2017 1031 EST Cardiology Discharge Summary Primary Care Provider: Katia Mccallum Attending Physician: Houston Corey MD Admit Date: 04/30/2017 Discharge Date: 05/04/17 Disposition: Home or self care Reason for Admission: SOB Principal/Final Diagnosis: Heart block AV third degree ([facility]) Additional Problems Managed in the Hospital Active Hospital Problems Diagnosis Date Noted ??? *Heart block AV third degree (CMS-HCC) 04/30/2017 ??? Hypertensive urgency 05/01/2017 ??? Acute on chronic diastolic congestive heart failure (CMS-HCC) 05/01/2017 Resolved Hospital Problems Diagnosis Date Noted Date Resolved No resolved problems to display. Principal Procedure: PPM 05/02/17 Secondary Procedures: none Hospital Course: David Farfan is a 66 y.o. male with no known PMH transferred from [facility] on 04/30/17 for complete heart block. Briefly, patient has had no medical care for 12 years [employer], is on no medications with no PMH. He complianed of 2-3 months of SOB which worsened 2-3 weeks prior to admission and reached critical point 2-3 days prior to admission when he had symptoms at rest with 3 pillow orthopnea and mild increased LE swelling prompting presentation to [facility]. On arrival to ED he was afebrile, HR 58, BP 190/103 with negative labs. ECHO showed EF 65% with moderate concentric LVH, mild LA dilation and mild AST/TR. His HRdropped to the 30s prompting transfer to [facility]. On arrival here patient was asymptomatic with heart rate 30-35. Labs were repeated and were significant for troponin 0.040. He was admitted to EP cardiology for further management. BP was initially controlled with nitro gtt, then transitioned to amlodipine 10 mg daily as well as chlorthalidone 25 mg daily. Lyme ab returned negative and he underwent PPM on 05/02/17. He was discharged home without services on 05/04/17. He was connected with Katia gentile patient primary care office on 05/29 as outlined below. Pertinent Studies ECHO showed EF 65% with moderate concentric LVH, mild LA dilation and mild AST/TR. Condition at Discharge: Improved Clinical Issues Needing Follow-up: - follow up in EP clinic as noted below Discharge Medications: START taking these medications Sig amLODIPine 10 mg tablet Commonly known as: NORVASC Take 1 Tab by mouth daily. Quantity: 90 Tab No Known Allergies There is no immunization history on file for this patient. Results Pending at Discharge Test results still pending from this admission None Upcoming Appointments May 28, 2017 12:30 EDT Post Hospital Visit with Caitie Atwood NP [facility] - [facility] (--) [address] [place] [address] Follow-up appointments and procedures Pacemaker check Your first pacemaker check will be scheduled in three months after implant at your closest chosen clinic location. You will be reminded of this date by mail - Subsequent pacemaker clinics will be done either once a year or twice a year depending on your device and those appointments will be scheduled at your first appointment. - [facility] Cardiology is located at [address] in [place] -Clinics are also held in [facility], and [facility]. If you live in those areas, we will make arrangements for follow-up appointments in one of those clinics.. Authorizing Provider: Coleen Yañez NP Remote Monitors Depending on where you live and the kind of pacemaker you have, you may be enrolled for a remote monitor. The monitor will be mailed to you and will allow you to have your pacemaker checked over the phone for some scheduled checks instead of having to come into the clinic. The monitor will also allowyou to send information about your pacemaker over the phone in the event you do not feel well. If you receive a remote monitor, please bring it to your next clinic visit so you can learn how to use it. Authorizing Provider: Coleen Yañez NP Wound check appointment Appointment on May 13, 2017 at 9 am for an incision site check with the nurse in the device clinic at [facility]. Phone [phone]. [facility] is located at [address] [place] [address] Authorizing Provider: Coleen Yañez NP ~Please note: You must contact us if we have not contacted you or you have missed your scheduled appointment. If you have any nursing questions, please don't hesitate to call the Cardiac Arrhythmia Service at [facility] at or , extension [phone]. For any scheduling of appointments, please call [phone] or , extension [phone]. . Authorizing Provider: Coleen Yañez NP Additional Information: Appointment on May 13, 2017 at 9 am for an incision site check with the nurse in the device clinic at the [facility]. . [facility] is located at [address] [place] [address] . You have an appointment with Katia Mccallum PA-C at [facility] on 05/29/2017 at 1:00 pm. If you have questions or need to reschedule your appointment, please call [phone]. Please arrive 15 minutes early to complete any necessary. Bring a copy of this AVS Summary with you. Cardiology follow up on June 16, 2017 at 2:[address] Torres at the [facility]. [facility] is located at [address] [place] [address]. Pacemaker device check on August 05, 2017 at 10 am at the [facility]. [facility] islocated at [address] [place] [address]. Discharge Handoff Communication I called Katia Mccallum's office the day prior to discharge for verbal sign out and left contact information for call back, though my call has not yet been returned. Amelia Partida DO Internal Medicine Resident PGY-3 [phone] 05/04/17 10:31 Associated attestation - Houston Corey MD - 05/05/2017 1103 EST Attestation statement: I saw and examined the patient with the resident/fellow. I agree with the findings and plan of care documented in the resident's/fellow's note. Patient seen on 05/04/17 documented in this encounter Discharge Instructions AppointmentsColeen Yañez NP - 05/02/2017 9:40 EST Appointment on May 13, 2017 at 9 am for an incision site check with the nurse in the device clinic at the [facility]. . [facility] is located at [address] [place] [address] . You have an appointment with Katia Mccallum PA-C at [facility] on 05/29/2017 at 1:00 pm. If you have questions or need to reschedule your appointment, please call [phone]. Please arrive 15 minutes early to complete any necessary. Bring a copy of this AVS Summary with you. Cardiology follow up on June 16, 2017 at 2:[address] Torres at the [facility]. [facility] is located at [address] [place] [address]. Pacemaker device check on August 05, 2017 at 10 am at the [facility]. [facility] islocated at [address] [place] [address]. Discharge Instr - Melida Engel RN - 05/01/2017 9:18 EST Remember the acronym BRENDA - Diet: low [...] or increase leg swelling. Discharge Instr - Jenny Lagos RN - 05/04/2017 16:11 EST Remember the acronym BRENDA - Diet: low [...] increased shortness of breath, or increase leg swelling.Nicholas score Identifies this patient to be at risk ??? PLEASE turn/document at least every q 2 hours. Additional InstructionsAmelia Partida MD - 05/03/2017 14:14 EST Remember the acronym BRENDA - Diet: low [...] shortness of breath, or increase leg swelling. Please call new PCP Katia Mccallum's office on Friday, 05/05 and ask to be connected with a social worker AttachmentsThe following attachments cannot be sent through Care Everywhere. HEART FAILURE: AVOIDING TRIGGERS ([employer] [place])documented in this encounter Medications at Time of Discharge Medication Sig Dispensed Refills Start Date End Date amLODIPine (NORVASC) 10 mg Take 1 Tab by 90 Tab 3 201705/20/2017 tablet mouth daily. chlorthalidone (HYGROTON) Take 1 Tab by 90 Tab 3 05/05/ 018 05/20/2017 25 mg tablet mouth daily. documented as of this encounter Ordered Prescriptions Prescription Sig Dispensed Refills Start Date End Date chlorthalidone (HYGROTON) Take 1 Tab by 90 Tab 3 05/05/2 018 05/20/2017 25 mg tablet mouth daily. amLODIPine (NORVASC) 10 mg Take 1 Tab by 90 Tab 3 201705/20/2017 tablet mouth daily. chlorthalidone (HYGROTON) Take 1 Tab by 90 Tab 3 05/05/2 018 05/04/2017 25 mg tablet mouth daily. amLODIPine (NORVASC) 10 mg Take 1 Tab by 90 Tab 3 201705/04/2017 tablet mouth daily. documented in this encounter Discharge Disposition Disposition Code Departure Means Destination Home or Self Care documented in this encounter Progress Notes Amelia Partida MD - 05/04/2017 1500 EST I spoke with contract post office clerk CM regarding patient's lack of electricity at his home. She recommended I contact patient's PCP, [facility] for further assistance, but that no other action could bemade on Friday. Was unable to leave message for their office today and efforts to contact them on 05/02 were met with unreturned messages. I have instructed patient to call their office on Friday to be connected to director social. Amelia Partida, Internal Medicine Resident PGY-3 [phone] 05/04/17 15:04 Gael Lama - 05/04/2017 1458 EST 05/04: Mr Argueta is ready for Dc to home today. It was discovered that he does not have electricity at home (he heats with propane). He will stay with his son for a few days but then plans to return home. The resident plans to call his new PCP to see if there is a SW who can assist through their office. I gave Mr Argueta information on 211. He signed his IM. His son will pick him up at Dc. GAEL TEIXEIRA RN Case Manager #[id number] elia Ramey MD - 05/04/2017 1204 EST Cardiology Progress Note Service Date: 05/04/2017 Admit Date: 04/30/2017 17:08 Reason for Admission: 66 y.o. male admitted for complete heart block and HTN urgency 24 Hour Events: - patient not discharged yesterday due to lightheadedness/ dizziness - no acute events overnight Subjective/Objective Subjective Patient reported no events overnight. Endorses mild lightheadedness yesterday and again this morningwhich made him feel unsteady on his feet. Thinks it might be a sinus cold as he has been blowing hisnose and tells me this has happened before with this type of weather/ low pressure systems. Denies significant pain at PPM site. Eating normally, denies SOB, nausea, vomiting. Review of Systems Pertinent items are noted in Subjective/HPI Objective Vital Signs Temp: [36.4 ??C (97.5 ??F)-36.7 ??C (98.1 ??F)] (), Heart Rate: [60 BPM-88 BPM] (), Resp: [17-18] (), BP: (112-151)/(71-88) (), SpO2: [97 %-99 %] () Physical Exam Gen: older male, alert, oriented, pleasant, no acute distress. Cooperative HEENT: atraumatic, normocephalic, PERRLA, EOMI. conjunctivae/corneas clear, no scleral icterus. Large rhinophyma. No elevated JVP Neck: supple, symmetrical, trachea midline CV: bradycardic, regular rhythm, normal S1, S2, no murmurs, rubs or gallops. Well approximated incision from PPM placement on anterior chest Resp: good air movement B/L, no crackles today, exam improved. No accessory muscle use, no respiratory distress Abd: soft, nontender, normal bowel sounds, no rebound, masses or guarding Extr: extremities warm, atraumatic, no cyanosis. Neuro: Follows basic commands, no focal neurologic deficits Skin: Skin color, tempature, turgor normal. No rashes or lesions Is PICC or central line present? No, PICC/Central line not present. Medications Amlodipine 10 mg daily PRN tylenol, bisacodyl suppository Chlorthalidone 25 mg daily Labs Reviewed: Recent Labs 05/02/17 0611 05/03/17 0542 WBC 6.92 7.95 HGB 12.3* 13.3* HCT 35.2* 38.4* PLT 185 196 Recent Labs 05/02/17 0611 05/03/17 0542 NA 135* 134* K 4.4 4.2 CL 102 99 CO2 23 26 BUN 10 8* CREATININE 0.68 0.67 Imaging: no new imaging Assessment/Plan Assessment David Farfan is a 66 y.o. male with no known PMH admitted in transfer 04/30/[address] [facility] for asymptomatic complete heart block and HTN urgency, s/p PPM placement 05/02. He may be discharged home either today vs tomorrow pending orthostatic vital signs and mobility as noted below. Plan Complete heart block: asymptomatic. Suspect this is responsible for mild demand troponin elevation 0.04-->0.055. Differential includes age related, infiltrative CM. Less likely ischemic in setting of ECHO results. Lyme ab negative. PPM placed 05/02 - telemetry monitoring - EP cardiology follow up arranged for discharge ?? HTN urgency: Asymptomatic BP 191/71 on admission, initially required nitro gtt. SBP improved - amlodipine 10mg po daily - chlorthalidone 25mg po daily ?? Lightheadedness/ dizziness: SBP ~120, HR stable 60 without events on tele, has not had diuresis or NPO x >48 hours. Suspect given rhinorrhea and sinus pressure, with lack of other localizing symptoms, this is related to environmental changes and not medication induced - orthostatic vital signs - RN to ambulate patient in hallway - continue current medications as above - add flonase daily - if no recurrence, will discharge patient home today as planned. If patient persistently symptomatic, will obtain PT consult FEN: cardiac diet Code: FULL DVT PPx: ambulate/SCDs Disposition: discharge home today vs tomorrow as noted above Amelia Partida DO Internal Medicine Resident PGY-3 [phone] 05/04/17 12:11 Associated attestation - Jennyfer Keys MD - 05/05/2017 1635 EST Attestation: I saw and examined the patient with the resident/fellow 05/04/2017. I agree with the findings and plan of care documented in the resident's/fellow's note. Jennyfer Keys MD 05/05/2017 16:35Strout, Radha Hannon MD - 05/03/2017 1315 EST Cardiology Progress Note Service Date: 05/03/2017 Admit Date: 04/30/2017 17:08 Reason for Admission: 66 y.o. male admitted for complete heart block and HTN urgency 24 Hour Events: - chest pain overnight but didn't meet Sgarbossa criteria per night team Subjective/Objective Subjective Mr. Farfan reports feeling fine. He has some chest tenderness around the PPM site but denies any chest pain or shortness of breath currently. He felt sore overnight. No real complaints this morning. Hereports he uses the [facility] in [place]. Review of Systems Pertinent items are noted in Subjective/HPI Objective Vital Signs Temp: [36.6 ??C (97.8 ??F)-37.2 ??C (98.9 ??F)] (), Heart Rate: [66 BPM-80 BPM] (), Resp: [18] (), BP: (133-159)/(78-92) (), SpO2: [95 %-98 %] () Physical Exam Gen: older male, alert, oriented, pleasant, no acute distress. Cooperative HEENT: atraumatic, normocephalic, PERRLA, EOMI. conjunctivae/corneas clear, no scleral icterus. Large rhinophyma. No elevated JVP Neck: supple, symmetrical, trachea midline CV: bradycardic, regular rhythm, normal S1, S2, no murmurs, rubs or gallops. Well approximated incision from PPM placement on anterior chest Resp: good air movement B/L, no crackles today, exam improved. No accessory muscle use, no respiratory distress Abd: soft, nontender, normal bowel sounds, no rebound, masses or guarding Extr: extremities warm, atraumatic, no cyanosis. Neuro: Follows basic commands, no focal neurologic deficits Skin: Skin color, tempature, turgor normal. No rashes or lesions Is PICC or central line present? No, PICC/Central line not present. Intake/Output Summary (Last 24 hours) at 05/03/17 1315 Last data filed at 05/03/17 1147 Gross per 24 hour Intake 720 ml Output 2150 ml Net -1430 ml Medications Amlodipine 10 mg daily PRN tylenol, bisacodyl suppository Labs Reviewed: Recent Labs 05/01/17 0601 05/02/17 0611 05/03/17 0542 WBC 7.09 6.92 7.95 HGB 12.7* 12.3* 13.3* HCT 36.4* 35.2* 38.4* PLT 205 185 196 Recent Labs 05/01/17 0601 05/02/17 0611 05/03/17 0542 NA 134* 135* 134* K 4.5 4.4 4.2 CL 101 102 99 CO2 23 23 26 BUN 6* 10 8* CREATININE 0.67 0.68 0.67 Total cholesterol 65, HDL 39, LDL 96, TGA 65 Trop 0.04-->0.055 Imaging: no new imaging Assessment/Plan Assessment David Farfan is a 66 y.o. male with no known PMH admitted in transfer 04/30/[address] [facility] for asymptomatic complete heart block and HTN urgency. 3/2 PPM placed. Hemodynamically stable and plan for discharge tomorrow. Plan Complete heart block: asymptomatic. Suspect this is responsible for mild demand troponin elevation 0.04-->0.055. Differential includes age related, infiltrative CM. Less likely ischemic in setting of ECHO results. Lyme ab negative. PPM placed 3/2 - telemetry monitoring ?? HTN urgency: Asymptomatic BP 191/71 on admission, initially required nitro gtt. SBP improved - amlodipine 10mg po daily - chlorthalidone 25mg po daily ?? Mild fluid overload: on admission, likely from decompensated diastolic heart failure in setting of complete heart block and HTN urgency leading to orthopnea, LE edema, bibasilar crackles, likely from untreated HTN. Currently euvolemic - hold further diuresis - strict I+O, daily weights, daily lytes - 2g Na restriction, 2L fluid restriction ?? FEN: cardiac diet Code: FULL DVT PPx: ambulate/SCDs Disposition: discharge home tomorrow. Patient has been connected with Katia Mccallum PA-C for [facility] primary care on 05/29 at 1pm Radha Lowery MD Internal Medicine PGY-2 Pager #[phone] 05/03/2017 13:15 Associated attestation - Houston Corey MD - 05/05/2017 1043 EST Attestation statement: I saw and examined the patient with the resident/fellow. I agree with the findings and plan of care documented in the resident's/fellow's note. Patient seen on 05/02/17 Desi Villatoro, TISH - 05/02/2017 1000 EST 05/02: Patient has an appointment with Katia Mccallum PA-C at [facility] on 05/29/2017 at 1:00 to establish care. I will fax clinical information. Desi Villatoro RN ? Houston Corey MD - 05/02/2017 0712 EST Cardiology Progress Note Service Date: 05/02/2017 Admit Date: 04/30/2017 17:08 Reason for Admission: 66 y.o. male admitted for complete heart block and HTN urgency 24 Hour Events: - PPM yesterday postponed pending lyme ab (negative) - PPM placed today - added amlodipine 5 mg daily yesterday, increased to 10 mg daily today Subjective/Objective Subjective Patient feels well. Denies chest pain, SOB, lightheadedness, dizziness, rashes, fevers, chills, nausea, vomiting, or changes in urinary or bowel habits. No complaints. Review of Systems Pertinent items are noted in Subjective/HPI Objective Vital Signs Temp: [35.9 ??C (96.6 ??F)-37 ??C (98.6 ??F)] (), Heart Rate: [29 BPM-79 BPM] (), Resp: [16-20] (), BP: (131-197)/(62-114) (), SpO2: [96 %-99 %] () Physical Exam Gen: older male, alert, oriented, pleasant, no acute distress. Cooperative HEENT: atraumatic, normocephalic, PERRLA, EOMI. conjunctivae/corneas clear, no scleral icterus. Large rhinophyma. No elevated JVP Neck: supple, symmetrical, trachea midline CV: bradycardic, regular rhythm, normal S1, S2, no murmurs, rubs or gallops. Well approximated incision from PPM placement on anterior chest Resp: good air movement B/L, no crackles today, exam improved. No accessory muscle use, no respiratory distress Abd: soft, nontender, normal bowel sounds, no rebound, masses or guarding Extr: extremities warm, atraumatic, no cyanosis. Neuro: Follows basic commands, no focal neurologic deficits Skin: Skin color, tempature, turgor normal. No rashes or lesions Is PICC or central line present? No, PICC/Central line not present. Intake/Output Summary (Last 24 hours) at 05/02/17 1345 Last data filed at 05/02/17 1249 Gross per 24 hour Intake 960 ml Output 650 ml Net 310 ml Medications Amlodipine 10 mg daily PRN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 given per MAY. Tylenol given for incisional pain. Response: Pt has complained of minor pain. Pt was supposed to be discharged today, however pt statesthat he had gotten up and was talking to his roommate, but all of the sudden felt dizzy/lightheaded.Pt returned to his bed and the dizziness went away. Pt told MD on rounds. MD wanting to watch pt a little further. VSS will continue to monitor. AURY MATIAS RN 05/03/2017 15:19 lan of Don Lovelace RN - 05/02/2017 8175 EST Problem: Daily Care Plan Goals Goal: Care Plan Documentation Outcome: Ongoing 05/02/17 1948 Care Plan Focus Area of Focus Circulatory Status Goal This Shift Pt will remain hemodynamically stable BP 137/86 (BP Cuff Location: Right arm, Patient Position: Semi fowlers) Pulse 70 Temp 36.6 ??C (97.9 ??F) (Tympanic) Resp 18 Ht 180.3 cm (71) Wt 99.8 kg (220 lb) SpO2 98% BMI 30.68 kg/m2 Data: PT A&O x3. Independent. Pt had pacemaker placed; V-paced. Site is clean dry intact. VSS. Action: Assessed and provided meds as ordered. Will continue to monitor. Response: Pt has been resting throughout the night. DON ALVARADO RN 05/02/2017 23:42 lan of Care - Aury Matias RN - 05/02/2017 1747 EST Problem: Daily Care Plan Goals Goal: Care Plan Documentation Outcome: Ongoing 05/02/17 1535 Care Plan Focus Area of Focus Circulatory Status Goal This Shift VSS POST PACER BP (!) 159/92 (BP Cuff Location: Right arm, Patient Position: Sitting) Pulse 70 Temp 36.6 ??C (97.8 ??F) (Tympanic) Resp 18 Ht 180.3 cm (71) Wt 99.8 kg (220 lb) SpO2 97% BMI 30.68 kg/m2 Data: Pt admitted for complete heart block with HR in 20-30s. Pt A/O x 3. Pt had permanent pacemakerplaced today. Action: Assessment and meds given per MAY. Pt was on bedrest for 3 hrs following the procedure. Postprocedure pts bps elevated and MD notified. Pts incision is C/D/I. Response: Pt has no incisional pain following pacemaker placement. Pt has been drinking and voiding post procedure. Pt hasn't really wanted to eat. Pt states he doesn't normally eat much at home either. Will continue to monitor. AURY MATIAS RN 05/02/2017 17:43 lan of Care - Don Alvarado RN - 05/02/2017 0516 EST Problem: Daily Care Plan Goals Goal: Care Plan Documentation Outcome: Ongoing 05/02/17 0033 Care Plan Focus Area of Focus Circulatory Status Goal This Shift Pt will remainhemodynamically stable Data: Pt A&O x3. Independent. 3rd degree HB with HR in 30's and 20's. Planned for Pacemaker today. NPO. Action: Assessed and administered meds as ordered. Notified MD of heart rate of 26. Will continue tomonitor. Response: Pt is asymptomatic and cordially waiting, resting, and sleeping. DON ALVARADO RN 05/02/2017 5:12 lan of Care - Charisse Corea RN - 05/01/2017 1605 EST Problem: Daily Care Plan Goals Goal: Care Plan Documentation Outcome: Ongoing Data: assumed care of patient @ 0700, patient A&Ox3, 3 degree AVB on tele, independent OOB. Patient admitted for bradycardia. Denies chest pain, SOB, and dizziness, HR in 30's, otherwise VSS. Action: assessment as documented, meds administered, see MAR. Educated patient on safe ambulation Response: patient verbalizes understanding of education, VSS, resting comfortably in bed, will continue to monitor. Plan for PPM insertion tomorrow Charisse Corea RN 05/01/2017 16:03 lan of Care - Fransico Chew RN - 05/01/2017 0308 EST Problem: Daily Care Plan Goals Goal: Care Plan Documentation Outcome: Ongoing 05/01/17 0120 Care Plan Focus Area of Focus Circulatory Status Goal This Shift VSS, monitor tele D: Patient arrived to [place] [id number] at 1900. Vital signs noted, BP 180s/80s. Tele applied. Patient in 3rd degree HB with HR in 20s-30s. Patient denies chest pain, SOB, and discomfort. Patient denies complaints at this time. Patient oriented to room, equipment, and careplan. At 22:45 pt had 6.7 second pause on tele. Pt not symptomatic, BP remained stable. MD Ware aware. A: Initiated nitro gtt per MAY to achieve SBP > 160. Administered 2g magnesium IV. Monitored teleclosely. R: After 1 hour BP 120s/60s. Nitro gtt off. Pt remains A&Ox3, denies SOB, lightheadedness, dizziness, or pain. NPO for PPM today. documented in this encounter Plan of Treatment Pending Results Name Type Priority Associated Diagnoses Date/Ti me OUTSIDE IMAGES - OTHER Imaging 04/30 16:47 EST CHEST Scheduled Referrals Name Type Priority Associated Order Schedule Diagnoses PROVIDER FOLLOW-UP Outpatient Referral Routine Or dered: INSTRUCTIONS 05/02/2017 PROVIDER FOLLOW-UP Outpatient Referral Routine Or dered: INSTRUCTIONS 05/02/2017 PROVIDER FOLLOW-UP Outpatient Referral Routine Or dered: INSTRUCTIONS 05/02/2017 PROVIDER FOLLOW-UP Outpatient Referral Routine Or dered: INSTRUCTIONS 05/02/2017 documented as of this encounter Procedures Procedure Name Priority Date/Time Associated Comments Diagnosis ECG REPORT - SCANNED 05/09/2017 13:51 EST ECG REPORT - SCANNED 05/08/2017 8:27 EST IMPLANT RECORD - 05/08/2017 8:14 SCANNED EST ECG REPORT - SCANNED 05/08/2017 8:14 EST ECG REPORT - SCANNED 05/08/2017 8:14 EST IMPLANT RECORD - 05/08/2017 8:14 SCANNED EST GLUCOSE, GLUCOMETER Routine 05/04/2017 7:41 Resul ts for this EST procedure are i n the results section. COMPLETE BLOOD COUNT Routine 05/03/2017 5:42 Resu lts for this EST procedure are i n the results section. BUN Routine 05/03/2017 5:42 Results for this EST procedure are i n the results section. CREATININE Routine 05/03/2017 5:42 Results for this EST procedure are i n the results section. ELECTROLYTES Routine 05/03/2017 5:42 Results for this EST procedure are i n the results section. EKG 12-LEAD STAT 05/03/2017 4:23 Results for this EST procedure are i n the results section. ECG REPORT - SCANNED 05/02/2017 11:16 EST PORTABLE CHEST 1 VIEW Routine 05/02/2017 10:27 Re sults for this EST procedure are i n the results section. EKG 12-LEAD Routine 05/02/2017 10:10 Results for this EST procedure are i n the results section. PERMANENT PACEMAKER Routine 05/02/2017 10:00 Resu lts for this PROCEDURE EST procedure are i n the results section. COMPLETE BLOOD COUNT Routine 05/02/2017 6:11 Resu lts for this EST procedure are i n the results section. BUN Routine 05/02/2017 6:11 Results for this EST procedure are i n the results section. CREATININE Routine 05/02/2017 6:11 Results for this EST procedure are i n the results section. ELECTROLYTES Routine 05/02/2017 6:11 Results for this EST procedure are i n the results section. TROPONIN I Routine 05/01/2017 7:52 Results for this EST procedure are i n the results section. COMPLETE BLOOD COUNT Routine 05/01/2017 6:01 Resu lts for this EST procedure are i n the results section. BUN Routine 05/01/2017 6:01 Results for this EST procedure are i n the results section. MAGNESIUM Routine 05/01/2017 6:01 Results for this EST procedure are i n the results section. CREATININE Routine 05/01/2017 6:01 Results for this EST procedure are i n the results section. LIPID PROFILE Routine 05/01/2017 6:01 Results for this (INCLUDES EST procedure are i n CHOLESTEROL, the results TRIGLYCERIDES, HDL, section. LDL) ELECTROLYTES Routine 05/01/2017 6:01 Results for this EST procedure are i n the results section. TROPONIN I Routine 05/01/2017 0:20 Results for this EST procedure are i n the results section. HEMOGLOBIN A1C Routine 05/01/2017 0:20 Results fo r this EST procedure are i n the results section. PROTIME Routine 04/30/2017 19:33 Results for this EST procedure are i n the results section. ED/URGENT CARE ADD-ON Routine 04/30/2017 18:20 Re sults for this EST procedure are i n the results section. OUTSIDE IMAGES ? 04/30/2017 17:24 Results for thi s ECHO IMAGES EST procedure are i n the results section. EKG 12-LEAD STAT 04/30/2017 16:43 Results for this EST procedure are i n the results section. PROFILE ED CARDIAC STAT 04/30/2017 16:40 Resul ts for this PACK EST procedure are i n the results section. LYME AB Routine 04/30/2017 16:40 Results for this EST procedure are i n the results section. TSH Routine 04/30/2017 16:40 Results for this EST procedure are i n the results section. documented in this encounter Results (ABNORMAL) GLUCOSE, GLUCOMETER (05/04/2017 7:41 EST) Glucose, 104 (H) 70 - 100 [facility] Fingerstick mg/dl LABORATORY SERVICES Erection Shop Supervisor ID [id number]: [facility] Test Performed by LABORATORY Nursing Services SERVICES Specimen Blood Performing Organization Address [facility] e [facility] LABORATORY [address] [place] [address] SERVICES CREATININE (05/03/2017 5:42 EST) Creatinine 0.67 0.66 - 1.25 [facility] mg/dl LABORATORY SERVICES GFR, Calculated 100 >60 [facility] Comment: ml/min/1.73m2 LABORATORY eGFR calculated using CKD-EPI equation for SERVICES non Americans. Multiply eGFR by 1.16 for Americans. Specimen Blood specimen (specimen) - Blood Performing Organization Address [facility] e [facility] LABORATORY [address] [place] [address] SERVICES (ABNORMAL) BUN (05/03/2017 5:42 EST) Pathologist Sig nature BUN 8 (L) 10 - 26 mg/dl [facility] LABORATO RY SERVICES Specimen Blood specimen (specimen) - Blood Performing Organization Address [facility] e [facility] LABORATORY [address] [place] [address] SERVICES (ABNORMAL) ELECTROLYTES (05/03/2017 5:42 EST) Pathologist Sig nature Sodium 134 (L) 136 - 145 mEq/L [facility] LABORA TORY SERVICES Potassium 4.2 3.5 - 5.0 mEq/L [facility] LABORA TORY SERVICES Chloride 99 96 - 110 mEq/L [facility] LABORAT ORY SERVICES CO2 26 22 - 32 mEq/L [facility] LABORATO RY SERVICES Specimen Blood specimen (specimen) - Blood Performing Organization Address [facility] e [facility] LABORATORY [address] [place] [address] SERVICES (ABNORMAL) HEMAGRAM (05/03/2017 5:42 EST) Pathologist Sig nature WBC 7.95 4.0 - 10.4 K/cmm [facility] LABORAT[facility] SERVICES RBC 3.97 (L) 4.36 - 5.78 M/cmm [facility] LABORAT[facility] SERVICES Hemoglobin 13.3 (L) 13.8 - 17.3 gm/dl [facility] LABORAT[facility] SERVICES HCT 38.4 (L) 39.5 - 50.2 % [facility] LABORAT[facility] SERVICES MCV 97 (H) 81 - 95 fl [facility] SERVICES MCH 33.5 (H) 27.6 - 33.0 pg [facility] SERVICES MCHC 34.6 32.8 - 36.4 gm/dl [facility] LAB[facility] SERVICES RDW-CV 11.9 <14.2 % [facility] SERVICES RDW-SD 42.4 <46.0 fl [facility]ORAT[facility] SERVICES PLT 196 141 - 377 K/cmm [facility]OR[facility] SERVICES MPV 12.6 9.5 - 12.7 fl [facility] LAB[facility] SERVICES Specimen Blood specimen (specimen) - Blood Performing Organization Address City/State/ZIP Code Phon e Number [facility] LABORATORY [address] [place] [address] SERVICES EKG 12-LEAD (05/03/2017 4:23 EST) Specimen Narrative [facility] EKG - 05/09/2017 13:4 7 EST ? [facility] ? Test Date: ?2017-05-03 Pat Name: ? DAVID FARFAN ?Department: ?? [place] [facility] ? Room: ? MW514 Gender: ? 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 [id number] : ?1950 ? Requested By: MARIO ALBERTO SCANLON Order Number: [id number] ? Reading : ?? SENG PERSON SA, MD ? Measurements Intervals ?[place] ? Rate: ? 75 ? P: ?51 DC: ? 172 ?QRS: ?-77 QRSD: ? 172 ?T: ?92 QT: ? 469 ? QTc: ?525 ? Interpretive Statements ELECTRONIC VENTRICULAR PACEMAKER ABNORMAL RHYTHM ECG Automated Interpretation. ??Provider Int erpretation to follow. Compared to ECG 05/02/2017 10:10:30 No significant changes I reviewed the tracing and have either a greed or edited the findings in this report. Electronically Signed On 8 13:47:58 EST by SENG PERSON SA, MD. 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 Provider Inter pretation to follow. Compared to ECG 05/02/2017 10:10:30 No significant changes I reviewed the tracing and have either a greed or edited the findings in this report. Electronically Signed On 13:47:58 EST by SENG PERSON SA, MD. Performing Organization Address City/[facility]/ZIP Code Phon e Number [facility] EKG PORTABLE CHEST 1 VIEW (05/02/2017 10:27 EST) Anatomical Region Laterality Modality Other Specimen Narrative [facility] [place] - 05/02/2017 10:51 EST PORTABLE CHEST 1 VIEW ??05/02/2017 10:27 AM Clinical History/Comments: heart block; s/p PPM Comparison: 04/30/2017 Findings: Semiupright AP view was obtain ed. Dual-chamber pacemaker has been placed through the left subclav jes vein. Leads overlie the right atrium and right ventricle. There is no evidence of pneumothorax, but one cannot be excluded on this non-upright radiograph. Pulmonary edema has significant improved and the cardiac silhouette is smaller than previously. Extensive pl eural calcification is present on the right. Procedure Note Umang Dugan MD - 05/02/2017 PORTABLE CHEST 1 VIEW 05/02/2017 10:27 AM Clinical History/Comments: heart block; s/p PPM Comparison: 04/30/2017 Findings: Semiupright AP view was obtain ed. Dual-chamber pacemaker has been placed through the left subclav jes vein. Leads overlie the right atrium and right ventricle. There is no evidence of pneumothorax, but one cannot be excluded on this non-upright radiograph. Pulmonary edema has significant improved and the cardiac silhouette is smaller than previously. Extensive pl eural calcification is present on the right. Performing Organization Address City/State/ZIP Code Phon e Number [facility] EKG 12-LEAD (05/02/2017 10:10 EST) Specimen Narrative [facility] EKG - 05/08/2017 8:22 EST ? [facility] ? Test Date: ?2017-05-02 Pat Name: ? DAVID FARFAN ?Department: ?? [facility] ? Room: ? MW514 Gender: ? 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 [id number] : ?1950 ? Requested By: JORGE Martinez Order Number: [id number] ? Reading MD: ?? LALY BARBER MD ? Measurements Intervals ?[place] ? Rate: ? 63 ? P: ?40 DC: ? 170 ?QRS: ?-72 QRSD: ? 180 ?T: ?86 QT: ? 492 ? QTc: ?504 ? Interpretive Statements DUAL CHAMBER PACER ELECTRONIC VENTRICULAR PACEMAKER I reviewed the tracing and have either a greed or edited the findings in this report. Electronically Signed On 08:22:30 EST by LALY BARBER MD. 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 Electronically Signed On 08:22:30 EST by LALY BARBER MD. Performing Organization Address City/State/ZIP Code Phon e Number [facility] EKG PERMANENT PACEMAKER PROCEDURE (05/02/2017 10:00 EST) Specimen Narrative [facility] - 05/02/2017 11:24 EST *Cardiology* [address] [place] [id number] Device Implantation Patient: David Farfan ? Study Date: ?05/02/2017 ? Accession #: ? [id number] : ? 1950 Referring: Attending: Tony Rosenberg MD Fellow: Assisting: Ashley Delarosa RN Copies: ?Margarito Torres MD ATTESTATION: Dr. Tony Rosenberg was present and sup ervising for the entire procedure, I, Dr. Tony Rosenberg have reviewed and agree with the findings of this report. SUMMARY OF PROCEDURE: - There were no complications. - Successful Dual chamber pacemaker impl ant. PROCEDURE INDICATION: INDICATION FOR PACING: Documented non-re versible symptomatic bradycardia due to third degree atrioventricular blo ck. HISTORY AND INDICATIONS: ??Mr. Farfan pr esents with complete heart block. PROCEDURE: - Implant of a dual chamber pacemaker ANESTHESIA: Conscious sedation and local anesthesia for pain control. PROCEDURE: The risks, benefits, and alternatives to the procedure and sedation were explained and informed consent was obtai cass. The patient name, date of , [facility] l site, and procedure were verified prior to the procedure. The pat ient was brought to the OR in the fasting state. The chest was prepped and draped in the usual sterile manner. ??Lidocaine 2% and Bupivacaine 0 .5% was administered to the left deltopectoral groove. ??Left axillary ve in access. With the patient in Trendelenburg position and under fluoros copic guidance the vessel was entered on 2 occasion(s) allowing for pl acement of 2 soft-tipped J-wire(s) to the level of the inferior v franchesca cava. The attending physician was present for the entire pro cedure. An incision was made medial and perpendi cular to the left deltopectoral groovesubcutaneous. Using blunt dissecti on and electrocautery to achieve hemostasis, a device pocket was construc chase. Lead implantation. The wire was tunneled into the incision area. Usi ng a 7Fr safety sheath, a lead was advanced to the right ventricle unde r fluoroscopic guidance and actively fixed to the right ventricular septum. Using a 7Fr safety sheath, a lead was then advanced to righ t atrium under fluoroscopic guidance and actively fixed to the right atrial appendage. The lead(s) were tested before and after suturing th e lead sleeve(s) to the pre-pectoralis fascia. Device detail in table below. Wound closure. The pocket was copiously irrigated [...] topical skin adhesive. IMPLANTED HARDWARE: Implanted device: Clifford Appiah Serial number: [id number]. LEAD PARAMETERS + + ----+ + Lead # ? 1 ? 2 ? + + ----+ + Chamber ? RA ? RV ? + + ----+ + Date implanted ?? 05/02/2017 ? 05/02/2017 ? + + ----+ + Model information BIOCUREX ? [employer] Ingevity ? ingevity mr ? MRI ? + + ----+ + Serial number ? [id number] ? [id number] ? + + ----+ + Location ? RA appendage ? Mid RV septum ? + + ----+ + Capture ? 0.6V@ 0.4ms ? 0.5V@ 0.4ms ? + + ----+ + Impedance ? 684Ohms ? 894Ohms ? + + ----+ + Sensing ? 3.4mV ? 16.2mV ? + + ----+ + Status ? Active ? Active ? + + ----+ + PACING SETTINGS + +------+ Mode ? DDDR ?? + +------+ Lower rate ? 60bpm + +------+ Upper rate ? 120bpm + +------+ Mode switch ? On ? + +------+ Mode switch rate 180bpm + +------+ Paced AV delay ?? 200ms + +------+ Sensed AV delay 180ms + +------+ CHAMBER SETTINGS + + + -+ ? RA ? RV ? + + + -+ Pacing polarity Uni/bipolar Uni/bipola r + + + -+ Amplitude ? 2.5V ? 2.5V ? + + + -+ Pulse width ? 0.4ms ? 0.4ms ? + + + -+ Sensing polarity Bipolar ? Bipolar ? + + + -+ Sensitivity ? 0.5mV ? 2mV ? + + + -+ STUDY COMPLETION Administered medications: ?? Cefazolin ( Ancef, Kefzol) , prior to the procedure for infection prophylaxis. - Fluoroscopy time: 1.3min. - Omnipaque Contrast: 10ml. - Patient in-room time: 08:00 AM. - Patient out-of-room time: 09:28 AM. - Intake: 200ml - Estimated blood loss: 30ml. PLAN: ??See post procedure orders. Bed r est for 3hours. At the completion of the procedure, find ings, results, any complications, and treatment plan were c ommunicated to the patient and reinforced after recovery from anesthesi a. With the patient's consent, the attending physician communicated fin dings, results, any complications, and treatment plan to [facility] members and patient support persons who were present at the conclusi on of the procedure. POST PROCEDURAL DISPOSITION: Patient was admitted as an inpatient mello or to this procedure. Electronically signed by Tony Rosenberg MD 05/02/2017 11:23 Procedure Note Tony Rosenberg MD - 05/02/2017 *Cardiology* [address] [place] [address] Device Implantation Patient: David Farfan Study Date: 04/2017 : 1950 Referring: Attending: Tony Rosenberg MD Fellow: Assisting: Ashley Delarosa RN Copies: Margarito Torres MD ATTESTATION: Dr. Tony Rosenberg was present and sup ervising for the entire procedure, I, Dr. Tony Rosenberg have reviewed and agree with the findings of this report. SUMMARY OF PROCEDURE: - There were no complications. - Successful Dual chamber pacemaker impl ant. PROCEDURE INDICATION: INDICATION FOR PACING: Documented non-re versible symptomatic bradycardia due to third degree atrioventricular blo ck. HISTORY AND INDICATIONS: Mr. Farfan pres ents with complete heart block. PROCEDURE: - Implant of a dual chamber pacemaker ANESTHESIA: Conscious sedation and local anesthesia for pain control. PROCEDURE: The risks, benefits, and alternatives to the procedure and sedation were explained and informed consent was obtai cass. The patient name, date of , surgica l site, and procedure were verified prior to the procedure. The pat ient was brought to the OR in the fasting state. The chest was prepped and draped in the usual sterile manner. Lidocaine 2% and Bupivacaine 0.5 % was administered to the left deltopectoral groove. Left axillary vein access. With the patient in Trendelenburg position and under fluoros copic guidance the vessel was entered on 2 occasion(s) allowing for pl acement of 2 soft-tipped J-wire(s) to the level of the inferior v franchesca cava. The attending physician was present for the entire pro cedure. An incision was made medial and perpendi cular to the left deltopectoral groovesubcutaneous. Using blunt dissecti on and electrocautery to achieve hemostasis, a device pocket was construc chase. Lead implantation. The wire was tunneled into the incision area. Usi ng a 7Fr safety sheath, a lead was advanced to the right ventricle unde r fluoroscopic guidance and actively fixed to the right ventricular septum. Using a 7Fr safety sheath, a lead was then advanced to righ t atrium under fluoroscopic guidance and actively fixed to the right atrial appendage. The lead(s) were tested before and after suturing th e lead sleeve(s) to the pre-pectoralis fascia. Device detail in table below. Wound closure. The pocket was copiously irrigated [...] topical skin adhesive. IMPLANTED HARDWARE: Implanted device: Clifford MELODIE Bijal [address]ari DR - Serial number: [id number]. LEAD PARAMETERS + + ----+ + Lead # 1 2 + + ----+ + Chamber RA RV + + ----+ + Date implanted 05/02/2017 05/02/2017 + + ----+ + Model information Cristobal hood mr MRI + + ----+ + Serial number [id number] + + ----+ + Location RA appendage Mid RV septum + + ----+ + Capture 0.6V@ 0.4ms 0.5V@ 0.4ms + + ----+ + Impedance 684Ohms 894Ohms + + ----+ + Sensing 3.4mV 16.2mV + + ----+ + Status Active Active + + ----+ + PACING SETTINGS + +------+ Mode DDDR + +------+ Lower rate 60bpm + +------+ Upper rate 120bpm + +------+ Mode switch On + +------+ Mode switch rate 180bpm + +------+ Paced AV delay 200ms + +------+ Sensed AV delay 180ms + +------+ CHAMBER SETTINGS + + + -+ RA RV + + + -+ Pacing polarity Uni/bipolar Uni/bipola r + + + -+ Amplitude 2.5V 2.5V + + + -+ Pulse width 0.4ms 0.4ms + + + -+ Sensing polarity Bipolar Bipolar + + + -+ Sensitivity 0.5mV 2mV + + + -+ STUDY COMPLETION Administered medications: Cefazolin (Anc ef, Kefzol) , prior to the procedure for infection prophylaxis. - Fluoroscopy time: 1.3min. - Omnipaque Contrast: 10ml. - Patient in-room time: 08:00 AM. - Patient out-of-room time: 09:28 AM. - Intake: 200ml - Estimated blood loss: 30ml. PLAN: See post procedure orders. Bed res t for 3hours. At the completion of the procedure, find ings, results, any complications, and treatment plan were c ommunicated to the patient and reinforced after recovery from anesthesi a. With the patient's consent, the attending physician communicated fin dings, results, any complications, and treatment plan to [facility] members and patient support persons who were present at the conclusi on of the procedure. POST PROCEDURAL DISPOSITION: Patient was admitted as an inpatient mello or to this procedure. Electronically signed by Tony Rosenberg MD 05/02/2017 11:23 Performing Organization Address [facility]/ZIP Code Phon e Number [facility] CREATININE (05/02/2017 6:11 EST) Creatinine 0.68 0.66 - 1.25 [facility] mg/dl LABORATORY SERVICES GFR, Calculated 100 >60 [facility] Comment: ml/min/1.73m2 LABORATORY eGFR calculated using CKD-EPI equation for SERVICES non Americans. Multiply eGFR by 1.16 for Americans. Specimen Blood specimen (specimen) - Blood Performing Organization Address City/[facility]/ZIP Code Phon e Number [facility] [address] [place] [address] SERVICES BUN (05/02/2017 6:11 EST) Pathologist Sig nature BUN 10 10 - 26 mg/dl [facility] Specimen Blood specimen (specimen) - Blood Performing Organization Address [facility]/ZIP Code Phon e Number [facility] [address] [place] [address] SERVICES (ABNORMAL) ELECTROLYTES (05/02/2017 6:11 EST) Pathologist Sig nature Sodium 135 (L) 136 - 145 mEq/L [facility] Potassium 4.4 3.5 - 5.0 mEq/L [facility] Chloride 102 96 - 110 mEq/L [facility] CO2 23 22 - 32 mEq/L [facility] Specimen Blood specimen (specimen) - Blood Performing Organization Address [facility]/ZIP Code Phon e Number [facility] [address] [place] [address] SERVICES (ABNORMAL) HEMAGRAM (05/02/2017 6:11 EST) Pathologist Sig nature WBC 6.92 4.0 - 10.4 K/cmm [facility] RBC 3.67 (L) 4.36 - 5.78 M/cmm [facility] Hemoglobin 12.3 (L) 13.8 - 17.3 gm/dl [facility] HCT 35.2 (L) 39.5 - 50.2 % [facility] MCV 96 (H) 81 - 95 fl [facility] MCH 33.5 (H) 27.6 - 33.0 pg [facility] MCHC 34.9 32.8 - 36.4 gm/dl [facility] RDW-CV 11.9 <14.2 % [facility] RDW-SD 41.1 <46.0 fl [facility] PLT 185 141 - 377 K/cmm [facility] MPV 12.9 (H) 9.5 - 12.7 fl [facility] Specimen Blood specimen (specimen) - Blood Performing Organization Address City/[facility]/ZIP Code Phon e Number [facility] [address] [place] [address] SERVICES (ABNORMAL) TROPONIN I (05/01/2017 7:52 EST) Pathologist Sig nature Troponin I (ng/mL) 0.035 (H) <0.034 ng/ml [facility] SERVICES Specimen Blood specimen (specimen) - Blood Performing Organization Address City/[facility]/ZIP Code Phon e Number [facility] [address] [place] [address] SERVICES MAGNESIUM (05/01/2017 6:01 EST) Pathologist Sig nature Magnesium 2.1 1.7 - 2.8 mg/dl [facility] Specimen Blood specimen (specimen) - Blood Performing Organization Address City/[facility]/ZIP Code [facility] e Number [facility] [address] [place] [address] SERVICES CREATININE (05/01/2017 6:01 EST) Creatinine 0.67 0.66 - 1.25 [facility] mg/dl LABORATORY SERVICES GFR, Calculated 100 >60 [facility] Comment: ml/min/1.73m2 LABORATORY eGFR calculated using CKD-EPI equation for SERVICES non Americans. Multiply eGFR by 1.16 for Americans. Specimen Blood specimen (specimen) - Blood Performing Organization Address [facility]/ZIP Code [facility] e Number [facility] [address] [place] [address] SERVICES (ABNORMAL) BUN (05/01/2017 6:01 EST) Pathologist Sig nature BUN 6 (L) 10 - 26 mg/dl [facility] Specimen Blood specimen (specimen) - Blood Performing Organization Address City/[facility]/ZIP Code [facility] e [facility] LABORATORY [address] [place] [address] SERVICES (ABNORMAL) ELECTROLYTES (05/01/2017 6:01 EST) Pathologist Sig nature Sodium 134 (L) 136 - 145 mEq/L [facility] Potassium 4.5 3.5 - 5.0 mEq/L [facility] Chloride 101 96 - 110 mEq/L [facility] CO2 23 22 - 32 mEq/L [facility] Specimen Blood specimen (specimen) - Blood Performing Organization Address City/[facility]/ZIP Code Phon e Number [facility] [address] [place] [address] SERVICES (ABNORMAL) HEMAGRAM (05/01/2017 6:01 EST) Pathologist Sig nature WBC 7.09 4.0 - 10.4 K/cmm [facility] RBC 3.76 (L) 4.36 - 5.78 M/cmm [facility] Hemoglobin 12.7 (L) 13.8 - 17.3 gm/dl [facility] HCT 36.4 (L) 39.5 - 50.2 % [facility] MCV 97 (H) 81 - 95 fl [facility] MCH 33.8 (H) 27.6 - 33.0 pg [facility] MCHC 34.9 32.8 - 36.4 gm/dl [facility] RDW-CV 11.9 <14.2 % [facility] RDW-SD 42.1 <46.0 fl [facility] PLT 205 141 - 377 K/cmm [facility] MPV 12.8 (H) 9.5 - 12.7 fl [facility] SERVICES Specimen Blood specimen (specimen) - Blood Performing Organization Address [facility] Phon e Number [facility] [address] [place] [address] SERVICES LIPID PROFILE (INCLUDES CHOLESTEROL, TRIGLYCERIDES, HDL, LDL) (05/01/2017 6:01 EST) Cholesterol 148 mg/dl [facility] Comment: LABORATORY Desirable:<200 SERVICES Borderline High:200-239 High:>bl=218 Triglycerides 65 mg/dl [facility] Comment: LABORATORY Normal:<150 SERVICES Borderline High:150-199 High:200-499 Very High:>tt=668 HDL 39 mg/dl [facility] Comment: LABORATORY Low:<40 SERVICES Normal:40-60 Desirable: >60 LDL, Calculated 96 mg/dl [facility] Comment: LABORATORY Optimal:<100 SERVICES Near Optimal:100-129 Borderline High:130-159 High:160-189 Very High:>wg=661 Chol/HDL Ratio 3.8 [facility] SERVICES Fasting? Unknown [facility] Non HDL Cholesterol 109 mg/dl [facility] Comment: LABORATORY Desirable:<130 SERVICES Borderline:130-159 High: 160-189 Very High: >th=141 Specimen Blood specimen (specimen) - Blood Performing Organization Address [facility] Phon e Number [facility] [address] [place] [address] SERVICES (ABNORMAL) TROPONIN I (05/01/2017 0:20 EST) Pathologist Sig nature Troponin I (ng/mL) 0.055 (H) <0.034 ng/ml [facility] SERVICES Specimen Blood specimen (specimen) - Blood Performing Organization Address [facility]/ZIP Code Phon e Number [facility] [address] [place] [address] SERVICES HEMOGLOBIN A1C (05/01/2017 0:20 EST) Hemoglobin A1C 5.7 % [facility] Comment: LABORATORY SERVICES Reference Range: <5.7% Normal 5.7-6.4% Prediabetes =>6.5% Diagnostic for diabetes (if confirmed) Goals for glycemic control in diabetes ADA 2017 For non adults with diabetes: ?? Target <7.5% For children and adolescents with type 1 diabetes: ?? Target <7.0% More or less stringent targets may be appropriate for individual patients. Est Avg Glucose 117 mg/dl [facility] Comment: LABORATORY SERVICES eAG represents the A1c result expressed as average glucose in mg/dl. Specimen Blood specimen (specimen) - Blood Performing Organization Address [facility]/ZIP [facility] Phon e Number [facility] [address] [place] [address] SERVICES (ABNORMAL) PROTIME (04/30/2017 19:33 EST) Pro Time 15.1 (H)Comment: NOTE 10.3 - 13.4 [facility] NEW REFERENCE RANGE secs LABORATORY SERVICE S OF APR 03 2017 I.N.R. 1.3 (H) 0.9 - 1.1 [facility] Comment: Ratio LABORATORY SERVICES Moderate Intensity Coumadin INR = 2.0-3.0 Adjustments in anticoagulant therapy dose should be based upon the INR and NOT the Pro Time. Specimen Blood specimen (specimen) - Blood Performing Organization Address City/[facility]/ZIP Code Phon e Number [facility] [address] [place] [address] SERVICES ED/URGENT CARE ADD-ON (04/30/2017 18:20 EST) Pathologist Sig nature Tests to be added LYME [facility] AB,Comment: [facility] LABORATORY SERVICES Number for problems [id number] (ED) [facility] SERVICES Specimen Other Performing Organization Address City/[facility]/ZIP Code Phon e Number [facility] [address] [place] [address] SERVICES OUTSIDE IMAGES ??? ECHO IMAGES (04/30/2017 17:24 EST) Anatomical Region Laterality Modality Other Specimen Narrative OP CARDIOLOGY - 04/30/2017 17:24 EST This is an outside study - there is no r eport. Procedure Note CHECK VIEWER, IMAGING - 04/30/2017 This is an outside study - there is no r eport. Performing Organization Address City/State/ZIP Code Phon e Number OP CARDIOLOGY EKG 12-LEAD (04/30/2017 16:43 EST) Specimen Narrative [facility] EKG - 05/02/2017 11:1 2 EST ?[facility] Emergency ? Test Date: ?2017-04-30 Pat Name: ? DAVID FARFAN ?Department: ?? ED ? Room: ? AC12 Gender: ? 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 [id number] : ?1950 ? Requested By: DONNA Cabral Order Number: [id number] ? Martha OAKES: ?? ANA MARSH MD ? Measurements Intervals ?[place] ? Rate: ? 33 ? P: ? DC: ? 0 ?QRS: ?15 QRSD: ? 110 ?T: ?42 QT: ? 524 ? QTc: ?394 ? Interpretive Statements SINUS RHYTHM WITH 3rd degree AV block an d junctional escape rhythm NONSPECIFIC ST & T-WAVE ABNORMALITY No previous ECG available for comparison I have reviewed the tracing and have eit her agreed or edited the findings in this report. ??Edited by BHARATHI GRANADOS MD on 05-01-17 19:59:31 EST. I reviewed the tracing and have either a greed or edited the findings in this report. Electronically Signed On 8 11:12:25 EST by ANA MARSH MD. 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 Edited by BHARATHI Barriga on 05-01-17 19:59:31 EST. I reviewed the tracing and have either a greed or edited the findings in this report. Electronically Signed On 11:12:25 EST by ANA MARSH MD. Performing Organization Address City/[facility]/ZIP Code Phon e Number [facility] EKG TSH (04/30/2017 16:40 EST) Pathologist Sig nature TSH 1.34 0.47 - 4.68 uIU/ml [facility] SERVICES Specimen Blood Performing Organization Address City/[facility]/ZIP Code Phon e Number [facility] [address] [place] [address] SERVICES LYME AB (04/30/2017 16:40 EST) Pathologist Sig nature [place] AB NegativeComment: [facility] Reference Range: LABORATORY SERVICES Negative Specimen Blood Performing Organization Address [facility] Phon e Number [facility] [address] [place] [address] SERVICES (ABNORMAL) PROFILE ED CARDIAC PACK (04/30/2017 16:40 EST) Sodium 134 (L) 136 - 145 [facility] mEq/L [facility] Potassium 4.2 3.5 - 5.0 [facility] mEq/L [facility] Chloride 105 96 - 110 [facility] mEq/L [facility] CO2 20 (L) 22 - 32 [facility] mEq/L [facility] BUN 6 (L) 10 - 26 [facility] mg/dl [facility] Creatinine 0.61 (L) 0.66 - 1.25 [facility] mg/dl [facility] SERVICES GFR, Calculated 104 >60 [facility] Comment: ml/min/1.73m [facility] eGFR calculated using CKD-EPI equation for 2 SERVICES non Americans. Multiply eGFR by 1.16 for Americans. Magnesium 1.7 1.7 - 2.8 [facility] mg/dl [facility] WBC 7.78 4.0 - 10.4 [facility] K/cmm [facility] RBC 3.72 (L) 4.36 - 5.78 [facility] M/cmm [facility] Hemoglobin 12.6 (L) 13.8 - 17.3 [facility] gm/dl [facility] HCT 35.7 (L) 39.5 - 50.2 [facility] % [facility] MCV 96 (H) 81 - 95 fl [facility] MCH 33.9 (H) 27.6 - 33.0 [facility] pg [facility] MCHC 35.3 32.8 - 36.4 [facility] gm/dl [facility] RDW-CV 11.9 <14.2 % [facility] RDW-SD 41.5 <46.0 fl [facility] PLT 197 141 - 377 [facility] MPV 12.5 9.5 - 12.7 [facility] LABORATORY SERVICES Neutrophils 62.1 % [facility] Lymphocytes 23.9 % [facility] Monocytes 11.6 % [facility] Eosinophils 1.2 % [facility] Basophils 0.9 % [facility] Immature Grans 0.3 % [facility] ABS Neutrophils 4.84 2.20 - 8.85 [facility] ABS Lymphs 1.86 1.09 - 3.30 [facility] LABORATORY SERVICES ABS Monocytes 0.90 (H) 0.1 - 0.8 [facility] LABORATORY SERVICES ABS Eosinophils 0.09 0.03 - 0.61 [facility] LABORATORY SERVICES ABS Basophils 0.07 0.01 - 0.11 [facility] LABORATORY SERVICES ABS Immature Grans 0.02 0 - 0.06 [facility] LABORATORY SERVICES Type of Diff: Automated [facility] Troponin I (ng/mL) 0.040 (H) <0.034 ng/ml [facility] Glucose, Screening 100 70 - 100 [facility] mg/dl [facility] Hold Blue Top Sample for [facility] coagulation will be [facility] discarded after 4 SERVICES hours Specimen Blood specimen (specimen) - Blood Performing Organization Address City/State/ZIP Code Phon e Number [facility] [address] [place] [address] SERVICES documented in this encounter Visit Diagnoses Diagnosis Heart block AV third degree (HCC-CMS) (H CC) - Primary Atrioventricular block, complete Acute on chronic diastolic congestive he art failure (HCC-CMS) (HCC) Acute on chronic diastolic heart failure Hypertensive urgency Unspecified essential hypertension documented in this encounter Administered Medications Inactive Administered Medications - up to 3 most recent administrations Medication Order MAR Action Action Date Dose Rate Site acetaminophen (TYLENOL) tablet 650 mg Given 05/03/2017 8:29 EST 650 mg 650 mg, oral, EVERY 4 HOURS PRN, Starting on Fri04/30/17 at 1904, Until 05/04/17 at 2019, Pain, Routine Given 05/02/2017 12:01 EST 650 mg amLODIPine (NORVASC) tablet 10 mg Given 05/04/2017 8:48 EST 10 mg 10 mg, oral, DAILY, First dose (after last modification) on Fri05/02/17 at 0900, Until Discontinued, Routine Given 05/03/2017 8:30 EST 10 mg Given 05/02/2017 10:12 EST 10 mg amLODIPine (NORVASC) tablet 5 mg Given 05/01/2017 8:05 EST 5 mg 5 mg, oral, DAILY, First dose on Fri05/01/17 at 0900, Until Discontinued, Routine ceFAZolin (ANCEF) 2 g in sodium chloride 0.9% 50 mL Given 05/03/2017 0:17 EST 2 g IVPB 2 g, intravenous, Administer over 30 Minutes, EVERY 8 HOURS, 3 doses, First dose on Fri05/02/17 at 1015, Last dose on Fri05/03/17 at 0000, STAT, Postprocedure Given 05/02/2017 15:33 EST 2 g Given by Other 05/02/2017 10:55 EST 2 g chlorthalidone (HYGROTON) tablet 25 mg Given 05/04/2017 8:48 EST 25 mg 25 mg, oral, DAILY, First dose on Fri05/02/17 at 1645, Until Discontinued, Routine Given 05/03/2017 8:30 EST 25 mg Given 05/02/2017 16:57 EST 25 mg fentaNYL citrate (PF) 50 mcg/mL injectio n Given 05/02/2017 8:20 EST 25 mcg intravenous, PRN, Starting on Fri05/02/17 at 0805, Until Fri05/02/17 at 0820, Routine Given 05/02/2017 8:05 EST 50 mcg fluticasone (FLONASE) nasal spray 100 mc g Given 05/04/2017 13:29 EST 100 mcg 100 mcg, nasal - both, DAILY, First dose on Fri05/04/17 at 1200, Until Discontinued, Routine furosemide (LASIX) injection 20 mg Given 04/30/2017 20:34 EST 20 mg 20 mg, intravenous, NOW X1, 1 dose, On Fri04/30/17 at 1930, Routine magnesium sulfate 2 g in water 50 mL Given 04/30/2017 20:34 EST 2 g 2 g, intravenous, Administer over 30 Minutes, NOW X1, 1 dose, On Fri04/30/17 at 2000, Routine midazolam (PF) (VERSED) 1 mg/mL injectio n Given 05/02/2017 8:20 EST 1 mg intravenous, PRN, Starting on Fri05/02/17 at 0805, Until Fri05/02/17 at 0820, Routine Given 05/02/2017 8:05 EST 2 mg nitroglycerin 400 mcg/ml in New Bag 04/30/2017 20:34 EST 0.5 m cg/kg/min 7.5 mL/hr D5W 250 ml infusion 0.5-5 mcg/kg/min ? 99.8 kg (7.485-74.85 mL/hr, rounded to 7.5-74.9 mL/hr), intravenous, at 7.5-74.9 mL/hr, CONTINUOUS, Starting on Fri04/30/17 at 1930, Until Fri05/01/17 at 0731, Routine sodium chloride 0.9 % (NS) infusion New Bag 05/02/2017 8:00 EST 50 mL/hr 50 mL/hr intravenous, FA IP EQF CONTINUOUS PRN FOR ONE STEP MEDS, Starting on Fri05/02/17 at 0800, Until Fri05/02/17 at 0800, Routine sodium chloride 0.9 % flush 3 mL Given 05/03/2017 23:10 EST 3 mL 3 mL, intravenous, EVERY 8 HOURS, First dose on Fri05/01/17 at 0000, Until Discontinued, Routine Given 05/03/2017 15:48 EST 3 mL Given 05/03/2017 9:29 EST 3 mL documented in this encounter Discontinued Medications Medication Sig Discontinue Reason Start Date End Date ibuprofen (MOTRIN) 200 mg Take 400 mg by Discontinued as 05/01/2017 tablet mouth daily. Inpatient chlorthalidone (HYGROTON) Take 1 Tab by 05/05/2017 0 05/04/2017 25 mg tablet mouth daily. amLODIPine (NORVASC) 10 Take 1 Tab by 05/03/201706/2017 mg tablet mouth daily. documented as of this encounter Historical Medications This list may reflect changes made after this encounter. Medication Sig Dispensed Refills Start Date End Date ibuprofen (MOTRIN) 200 mg Take 400 mg by mouth 0 05/01/2017 tablet daily. added in this encounter Active and Recently Administered Medications Times are shown in EST. Scheduled Medication Order 05/02/2017 05/03/2017 05/04/2017 amLODIPine (NORVASC) tablet 10 mg 1012 (Given - Provider: Aman Matias RN) 0830 (Given - Provider: Aury Matias RN) 0848 (Given - Provider: Katie Smith RN) 10 mg, oral, DAILY, First dose on 04/20 at 0900, Until Discontinued, Routine ceFAZolin (ANCEF) 2 g in sodium chloride 0.9% 50 mL IV PB (COMPLETED) 1055 (Given by Other - Provider: Aury Matias RN)1533 (Given - Provider: Aury Matias RN) 0017 (Given - Provider: Don Alvarado RN) 2 g, intravenous, Administer over 30 Min utes, EVERY 8 HOURS, 3 doses, First dose on Fri05/02/17 at 1015, Last dose on Fri05/03/17 at 0000, STAT chlorthalidone (HYGROTON) tablet 25 mg 1657 (Given - P rovider: Aury Matias RN) 0830 (Given - Provider: Aury Matias RN) 0848 (Giv en - Provider: Katie Smith, TISH) 25 mg, oral, DAILY, First dose on 04/20 at 1645, Until Discontinued, Routine fluticasone (FLONASE) nasal spray 100 mcg 1329 (Given - Provider: Katie Smith RN) 100 mcg, nasal - both, DAILY, First dose on Fri05/04/17 at 1200, Until Discontinued, Routine sodium chloride 0.9 % flush 3 mL 1014 (Given - Provide r: Aury Matias RN)1533 (Given - Provider: Aury Matias, TISH) 0023 (Given - Provider: Don Alvarado, RN)0929 (Given - Provider: Aury Matias, TISH)1548 (Given - Provider: Charisse Corea, TISH)2310 (Given - Provider: Doris Alex, RN) 0900 (Canceled Entry - Provider: Katie Smith, RN)1504 (Canceled Entry - Provider: Katie Smith, RN) 3 mL, intravenous, EVERY 8 HOURS, First dose on [place] 05/01/17 at 0000, Until Discontinued, Routine PRN Medication Order 05/02/2017 05/03/2017 05/04/2017 acetaminophen (TYLENOL) tablet 650 mg 1201 (Given - Pr ovider: Aury Matias RN) 08 (Given - Provider: Aury Matias RN) 650 mg, oral, EVERY 4 HOURS PRN, Startin g Fri04/30/17 at 1904, Until Fri05/04/17 at 2019, Pain, Routine bisacodyl (DULCOLAX) suppository 10 mg 10 mg, rectal, DAILY PRN, Starting Fri at 1904, Until 05/04/17 at 2019, Constipation, Routine fentaNYL citrate (PF) 50 mcg/mL injection (COMPLETED) 804 (Given - Provider: Sigrid Schwartz RN)819 (Given - Provider: Sigrid Schwartz, RN) intravenous, PRN, Starting on Fri05/02/17 at 0805, Until Fri05/02/17 at 0820, Routine midazolam (PF) (VERSED) 1 mg/mL injection (COMPLETED) 804 (Given - Provider: Sigrid Schwartz, TISH)08 (Given - Provider: Sigrid Schwartz, RN) intravenous, PRN, Starting on Fri05/02/17 at 0805, Until Fri05/02/17 at 0820, Routine sodium chloride 0.9 % (NS) infusion (COMPLETED) 0800 ( New Bag - Provider: Sigrid Schwartz, RN) intravenous, FA IP EQF CONTINUOUS PRN FO R ONE STEP MEDS, Starting Fri05/02/17 at 0800, Until Fri05/02/17 at 0800, Routine documented in this encounter Orders Medications Ordered That Might Not Have Count Last Ord ered Date First Ordered Date Been Administered atropine 0.1 mg/mL syringe 0.5-1 mg 1 05/02/2017 amLODIPine (NORVASC) tablet 5 mg 1 05/01/2017 atropine 0.1 mg/mL syringe 1 04/30/2017 bisacodyl (DULCOLAX) suppository 10 mg 1 8 chlorhexidine gluconate 2 % cloth 1 Each 1 018 docusate sodium (COLACE) capsule 100 mg 1 04/30/19 18 Procedures Count Last Ordered Date First Ordered Date ECG REPORT - SCANNED 5 05/12/2017 05/02/2017 IMPLANT RECORD - SCANNED 2 05/08/2017 Diet Count Last Ordered Date First Ordered Date DISCHARGE DIET 4 05/01/2017 Nursing Count Last Ordered Date First Ordered Date ACTIVITY INSTRUCTIONS 2 05/02/2017 05/01/2017 BEDREST 1 05/02/2017 CONTRAINDICATION TO ANTICOAGULATION 1 05/02/2017 THERAPY WOUND CARE INSTRUCTIONS 4 05/02/2017 05/02/19 18 MEASURE WEIGHT 1 04/30/2017 TREATMENT/INTERVENTION - MISCELLANEOUS 1 8 VTE PHARMACOLOGIC PROPHYLAXIS CURRENTLY 1 04/30/19 18 ORDERED OR ON ALTERNATIVE THER IV Count Last Ordered Date First Ordered Date IV REQUEST 1 05/01/2017 Admission Count Last Ordered Date First Ordered Date ED BED REQUEST 1 04/30/2017 STATUS: INPATIENT ACUTE ADMISSION 1 04/30/2017 Transfer Count Last Ordered Date First Ordered Date NOTIFY PPS OF DISCHARGE COMPLETE 1 05/04/2017 CHANGE PCP 1 05/02/2017 PPS NOTIFICATION OF PATIENT ARRIVAL ON 8 UNIT UR PATIENT STATUS CHANGE 1 04/30/2017 Discharge Count Last Ordered Date First Ordered Date DISCHARGE PATIENT 1 05/04/2017 Legal Count Last Ordered Date First Ordered Date MISCELLANEOUS DISCHARGE INSTRUCTIONS 6 05/02/2017 05/01/2017 documented in this encounter Care Teams [address] Relationship Specialty Start Date End Date None, Provider PCP - General 04/30/17 05/01/17 Katia Mccallum PA-C PCP - General 05/02/17 [address] [place] [id number] documented as of this encounter
--- OUTSIDE RECORDS SUMMARY | 2021-09-28 02:22 | XMS_ITS | Encounter Summary ---
:1950 [place] [address] Care Team Providers Name Role Phone Katia Mccallum Primary Care Provider Encounter Details Date Type Department Care Team Description 08/14/2021 Hospital Encounter Non-Invasive Dylan Story CHB ([facility] heart Cardiology Lab Andra lloyd) [address] [phone] (Work) [phone] Social History Tobacco Use Types Packs/Day Years Used Date Never Assessed Sex Assigned at Date Recorded Not on file documented as of this encounter Plan of Treatment Not on filedocumented as of this encounter Procedures Procedure Name Priority Date/Time Associated Comments Diagnosis PCM INTERROGATION 3 Routine 09/04/2021 7:46 AM CHB (complete h eart Results for this MONTH EDT block) procedure are i n the results section. documented in this encounter Results PCM INTERROGATION 3 MONTH (09/04/2021 7:46 AM EDT) Specimen (Source) Anatomical Location Collection Method / Collectio n Time Received Time / Laterality Volume Narrative Dylan Story MD - 09/07/2021 11:24 AM EDT BSC DDD PPM remote reviewed. Normal device function. Dylan Story MD [facility] Cardiac Electrophysiology 09/07/2021 11:23 AM Dylan Story MD IMPLANTABLE CARDIAC DEVICE documented in this encounter Visit Diagnoses Diagnosis CHB (complete heart block) Atrioventricular block, complete documented in this encounter Care Teams Cokeman Relationship Specialty Start Date End Date Katia Mccallum PA PCP - General General Internal Medicine 11/10/[address] [place] [address] documented as of this encounter
--- OUTSIDE RECORDS SUMMARY | 2021-09-28 02:22 | XMS_ITS | Encounter Summary ---
:1950 [place] [address] Care Team Providers Name Role Phone Katia Mccallum Primary Care Provider Encounter Details Date Type Department Care Team Description 06/26/2021 Ancillary Procedure Radiology Library Mykel Stern, Gallbladder abscess at [facility] DO [facility] [address] [place] RADIOLOGY [id number] [place], [place] [phone] [id number] Social History Tobacco Use Types Packs/Day Years Used Date Never Assessed Sex Assigned at Date Recorded Not on file documented as of this encounter H&P Notes Vini Garner MD - 06/26/2021 3:30 PM EDT Images from the original note were not included. INTERVENTIONAL RADIOLOGY FOCUSED H&P and PRE-PROCEDURE NOTE: PCP: GIRISH Johnson Referring Provider: [facility] General Surgery: Virginia Price DO Planned Procedure: Planned procedure: CT guided RUQ abdominal drain and left chest tube placement Procedure Indication: Post cholecystectomy abscess. Interventional Radiology Service contacted by Dr. Price at 4:00pm regarding the procedure request below. Order Questions Answers Exams requested for upload: CT ABD/PELV Date for auto-scheduling 06/26/21 Presenting Diagnosis/ Complaint: Tim Mera is a 70 y.o. male with PMH of chronic lung disease, CAD and cardiac arrhythmia with pacemaker, alcoholic liver disease and recent cholecystectomy with postoperative surgical drain placement and subsequent removal with CT evidence of a gallbladder fossa abscess and left pleural fluid collection and empyema. Since the ct imaging this afternoon there has been interval surgical drain removal due to low fluid output. Additionally Dr. Price states there were no GA complications during the cholecystectomy. History was communicated by Dr. Price from [facility]. They are requesting a gallbladder fossa and left chest tube placement. Past Medical/Surgical History: There is no problem list on file for this patient. No past medical history on file. No past surgical history on file. Medications: No current outpatient medications on file prior to visit. No current facility-administered medications on file prior to visit. Allergies: Patient has no allergy information on record. Social History and Habits: Social History Socioeconomic History ??? Marital status: Not on file Spouse name: Not on file ??? Number of children: Not on file ??? Years of education: Not on file ??? Highest education level: Not on file Occupational History ??? Not on file Tobacco Use ??? Smoking status: Not on file ??? Smokeless tobacco: Not on file Substance and Sexual Activity ??? Alcohol use: Not on file ??? Drug use: Not on file ??? Sexual activity: Not on file Other Topics Concern ??? Not on file Social History Narrative ??? Not on file Social Determinants of Health Financial Resource Strain: Not on file Food Insecurity: Not on file Transportation Needs: Not on file Physical Activity: Not on file Housing Stability: Not on file Significant Family History: No family history on file. Pertinent ROS: as per HPI Labs: pending fax. uptrending WBC per dr. Price. Imagin06/26/21 CT AP Physical Exam: Pending (to be performed in angio the day of procedure) ASA: Pending (to be assessed in angio the day of procedure) Mallampati Class: Pending (to be assessed in angio the day of procedure) Assessment: 70 y.o. male with recent cholecystectomy complicated by gallbladder fossa abscess and left basilar pleural collection presenting to [facility] for ct guided abdominal and left pleural drian placement. Plan: Planned procedure: CT guided RUQ abdominal drain and left chest tube placement Labs to be performed day of procedure: Hemogram; INR; Coags (need to be faxed from [facility]) Sedation: Moderate (Conscious sedation) Prophylactic antibiotic : -- (NKDA per Dr. Price. Already receiving ABX) Contrast: No contrast Additional medications for procedure: Lidocaine Planned access site: tbd Position: Supine; Prone (supine gb fossa drain. prone chest tube placement vs. sitting with ultrasound.) Consent: Pending Medications to discontinue (and days held): Lovenox (12 hours) Case Urgency:: F- Elective OUT-patient intervention within 3 days (down and back) 06/26/2021 documented in this encounter Plan of Treatment Not on filedocumented as of this encounter Procedures Procedure Name Priority Date/Time Associated Diagnosis Comme nts FILM LIBRARY Routine 06/26/2021 3:25 PM Results f or this STORAGE ONLY CT EDT procedure ar e in ABDOMEN AND PELVIS the resul ts section. documented in this encounter Results Film Library- Storage Only CT Abdomen & Pelvis (06/26/2021 3:25 PM EDT) Specimen (Source) Anatomical Location Collection Method / Collectio n Time Received Time / Laterality Volume Narrative RAD - 06/26/2021 3:25 PM EDT This exam is auto-finalizing. It's purpo se is for storage only. Mykel Stern DO Shaun FILM LIBRARY ORDERABLES Performing Organization Address City/State/ZIP Code Phon e Number [place], [place] documented in this encounter Visit Diagnoses Diagnosis Gallbladder abscess Acute cholecystitis documented in this encounter Care Teams Reconstructive Dentist Relationship Specialty Start Date End Date Katia Mccallum PA PCP - General General Internal Medicine 11/10/[address] [place] [id number] documented as of this encounter
--- OUTSIDE RECORDS SUMMARY | 2021-09-28 02:22 | XMS_ITS | Encounter Summary ---
:1950 Author Organization [facility] [place] [address] Care Team Providers Name Role Phone Katia Mccallum Primary Care Provider Encounter Details Date Type Department Care Team Description 07/23/2021 Notes Only Radiology at [facility] Mykel Stern [facility] [place] [address] RADIOLOGY [phone] [place], [place] [address] (Wo rk) Social History Tobacco Use Types Packs/Day Years Used Date Never Assessed Sex Assigned at Date Recorded Not on file documented as of this encounter H&P Notes Mykel Stern DO - 07/23/2021 11:07 AM EDT Images from the original note were not included. INTERVENTIONAL RADIOLOGY FOCUSED H&P and PRE-PROCEDURE NOTE: PCP: GIRISH Johnson Referring Provider: Dr. Radha Boss Planned Procedure: Planned procedure: Gallbladder Fossa Abscess Drainage Catheter Evaluation Procedure Indication: Gallbladder Fossa Abscess status post drainage catheter placement 07/10/21. First routine drainage catheter evaluation. Procedure Request: Procedure request received through the Interventional Radiology eDH order queue. Presenting Diagnosis/ Complaint: Tim Mera is a 70 y.o. male presenting to IR for gallbladder fossa drainage catheter evaluation. Past medical history is significant for COPD, CAD, HTN, and longstanding RUQ pain who recently underwent lap cholecystectomy. Found to have gallbladder fossa collectionand left pleural collections for which drainage catheters were placed into both collections on 07/10/21. Now presenting for evaluation of the gallbladder fossa drainage catheter. Original drainage catheter placements were requested by Dr. Virginia Price of [facility]. Unclear follow up in our system; will need to clarify with patient. IR History: 07/10/21 CT guided peritoneal drain/L pleural drain placement Fentanyl 125 mcg IV; Versed 2 mg IV; tolerated well Antiplatelets: None. Anticoagulants: None. Recent Laboratories: ??? None in our system ??? Getting Laboratories Before Procedure: No. Allergies: None. Patient is a DNR and wishes to remain so for procedures. Past Medical/Surgical History: As detailed above. Past Surgical History: Procedure Laterality Date ??? CT GUIDED DRAIN CHEST TUBE/PLEURAL DRAIN 07/10/2021 CT Guided Drain Chest Tube/Pleural Drain 07/10/2021 Vick Boss MD [facility] RAD CT SCAN ??? CT PERITONEAL DRAINAGE 07/10/2021 CT Guided Drain Peritoneal 07/10/2021 Vick Boss MD [facility] RAD CT SCAN Medications: Allergies: Patient has no known allergies. Social History and Habits: Social History Socioeconomic History ??? Marital status: Unknown Spouse name: Not on file ??? Number [...] file. Pertinent ROS: as per HPI Labs: Imaging: Physical Exam: Pending (to be performed in angio the day of procedure) ASA: Pending (to be assessed in angio the day of procedure) Mallampati Class: Pending (to be assessed in angio the day of procedure) Assessment: 70 y.o. male presenting to IR for gallbladder fossa drainage catheter evaluation. Past medical history is significant for COPD, CAD, HTN, and longstanding RUQ pain who recently underwent lap cholecystectomy. Found to have gallbladder fossa collection and left pleural collections for which drainage catheters were placed into both collections on 5/10/22. Now presenting for evaluation of thegallbladder fossa drainage catheter. Plan: Planned procedure: Gallbladder Fossa Abscess Drainage Catheter Evaluation Labs to be performed day of procedure: No labs Sedation: No Sedation Prophylactic antibiotic : None Contrast: Omnipaque Additional medications for procedure: Lidocaine Planned access site: Right Upper Quadrant Position: Supine Consent: Completed Medications to discontinue (and days held): None Case Urgency:: G- Other (non E or F elective cases) 07/23/2021 documented in this encounter Plan of Treatment Not on filedocumented as of this encounter Visit Diagnoses Not on filedocumented in this encounter Care Teams Speech And Hearing Clinic Director Relationship Specialty Start Date End Date Katia Mccallum PA PCP - General General Internal Medicine 11/10/18 [address] [place] [address] documented as of this encounter
--- OUTSIDE RECORDS SUMMARY | 2021-09-28 02:22 | XMS_ITS | Clinical Summary ---
:1950 Author Organization [facility] [place] [address] Care Team Providers Name Role Phone Katia Mccallum Primary Care Provider Allergies No known active allergies Encounters Date Type Specialty Care Team Description 08/14/2021 Hospital Encounter Cardiology Dylan Story MD CHB (complete heart block) 07/23/2021 Notes Only Radiology Mykel Stern, 07/10/2021 Hospital Encounter Radiology Virginia Price, Zarina iva visceral DO abscess (Primar y Dx) 07/09/2021 Ancillary Procedure Radiology Nolan Beth MD from Last 3 Months Social History Tobacco Use Types Packs/Day Years Used Date Never Assessed Sex Assigned at Date Recorded Not on file Last Filed Vital Signs Vital Sign Reading Time Taken Comments Blood Pressure 120/98 07/10/2021 12:30 PM EDT Pulse 73 07/10/2021 12:15 PM EDT Temperature 36.7 ??C (98 ??F) 07/10/2021 12:15 PM EDT Respiratory Rate 20 07/10/2021 12:30 PM EDT Oxygen Saturation 100% 07/10/2021 12:15 PM EDT Inhaled Oxygen Concentration - - Weight - - Height - - Body Mass Index - - Plan of Treatment Health Maintenance Due Date Last Done Comments Covid-19 Vaccine (#1) 10[birth year]06/1955 Hepatitis C Screening 1968 Lipid Screening 1968 Tdap adult 1969 Tetanus vaccine 1969 Colonoscopy 10/06/1995 Zoster vaccine (1 of 2) 2000 Advance Directive 2005 Pneumoccocal Vaccine: 65+ (1 - PCV) 10/06/2015 Influenza (Flu) vaccine (1 of 1 - Influenza standard 11/01/2021 series) Procedures Procedure Name Priority Date/Time Associated Comments Diagnosis PCM INTERROGATION 3 Routine 09/04/2021 7:46 AM CHB (complete h eart Results for this MONTH EDT block) procedure are i n the results section. CT PERITONEAL DRAINAGE Routine 07/10/2021 12:19 Abdominal visc eral Results for this PM EDT abscess procedure are i n the results section. CT GUIDED DRAIN CHEST Routine 07/10/2021 12:19 Re sults for this TUBE/PLEURAL DRAIN PM EDT procedure are in the results section. ANAEROBIC CULTURE Routine 07/10/2021 11:45 Result s for this AM EDT procedure are i n the results section. BODY FLUID CULTURE, Routine 07/10/2021 11:45 Resu lts for this AEROBIC AM EDT procedure are i n the results section. HC CONC. FOR Routine 07/10/2021 11:45 INFECTIOUS AGENTS AM EDT ANAEROBIC CULTURE Routine 07/10/2021 11:20 Result s for this AM EDT procedure are i n the results section. BODY FLUID CULTURE, Routine 07/10/2021 11:20 Resu lts for this AEROBIC AM EDT procedure are i n the results section. HC GRAM STAIN FOR Routine 07/10/2021 11:20 BACTERIA AM EDT FILM LIBRARY STORAGE Routine 07/09/2021 1:33 PM R esults for this ONLY CT CHEST ABDOMEN EDT proced ure are in PELVIS the results section. ORDS - PROVIDER CARE 07/09/2021 12:00 SCAN AM EDT from Last 3 Months Results PCM INTERROGATION 3 MONTH (09/04/2021 7:46 AM EDT) Specimen (Source) Anatomical Location Collection Method / Collectio n Time Received Time / Laterality Volume Narrative Dylan Story MD - 09/07/2021 11:24 AM EDT BSC DDD PPM remote reviewed. Normal device function. Dylan Story MD S Cardiac Electrophysiology 09/07/2021 11:23 AM Dylan Story MD IMPLANTABLE CARDIAC DEVICE CT Guided Drain Chest Tube/Pleural Drain (07/10/2021 12:19 PM EDT) Anatomical Region Laterality Modality Computed Tomography Specimen (Source) Anatomical Location Collection Method / Collectio n Time Received Time / Laterality Volume Impressions 07/11/2021 10:21 AM EDT 1. ??Percutaneous placement of a 10 Fren ch drainage catheter into gallbladder fossa abscess/biloma, yielding 120 mL of cloudy brown fluid. 2. ??Left-sided 10 Chinese chest tube guicho cement, yielding 30 mL of cloudy brown. Plan: 1. ??To IR recovery then transfer back [facility]. 2. ??Awaiting return call from reji stroud [...] who have questions please contact the health child care group leader that requested your imaging first. ? Electronically signed by: Vick domingo MD, [facility] ([phone]), at 07/11/2021 10:21 AM Narrative 07/11/2021 10:21 AM EDT PROCEDURE: Drainage [...] IMPRESSION 1. Percutaneous placement of a 10 Chinese drainage catheter into gallbladder fossa abscess/biloma, yielding 120 mL of cloudy brown fluid. 2. Left-sided [address], yielding 30 mL of cloudy brown. Plan: 1. To IR recovery then transfer back to [facility]. 2. Awaiting return call from requesting provider [...] ho have questions please contact the health child care group leader that requested your imaging first. Electronically signed by: Vick domingo MD, [facility] ([phone]), at 07/11/2021 10:21 AM Virginia Price DO IMG CT ORDERABLES CT Guided Drain Peritoneal (07/10/2021 12:19 PM EDT) Anatomical Region Laterality Modality Computed Tomography Specimen (Source) Anatomical Location Collection Method / Collectio n Time Received Time / Laterality Volume Impressions 07/11/2021 10:21 AM EDT 1. ??Percutaneous placement of a 10 Fren ch drainage catheter into gallbladder fossa abscess/biloma, yielding 120 mL of cloudy brown fluid. 2. ??Left-sided 10 Chinese chest tube guicho cement, yielding 30 mL of cloudy brown. Plan: 1. ??To IR recovery then transfer back [facility]. 2. ??Awaiting return call from reji stroud [...] who have questions please contact the health child care group leader that requested your imaging first. ? Electronically signed by: Vick domingo MD, [facility] ([phone]), at 07/11/2021 10:21 AM Narrative 07/11/2021 10:21 AM EDT PROCEDURE: Drainage [...] IMPRESSION 1. Percutaneous placement of a 10 Chinese drainage catheter into gallbladder fossa abscess/biloma, yielding 120 mL of cloudy brown fluid. 2. Left-sided [address], yielding 30 mL of cloudy brown. Plan: 1. To IR recovery then transfer back to [facility]. 2. Awaiting return call from requesting provider [...] ho have questions please contact the health child care group leader that requested your imaging first. Electronically signed by: Vick domingo MD, [facility] ([phone]), at 07/11/2021 10:21 AM Virginia Price DO IMG CT ORDERABLES Anaerobic Culture (07/10/2021 11:45 AM EDT)Only the most recent of2 results within the time period is included. [facility] Method Time Signature Anaerobic No anaerobic [facility] Culture organisms [facility] LABORATORY Specimen Anatomical Collection Method Collection Time Receive d Time (Source) Location / / Volume Laterality Fluid 07/10/2021 11:45 07/10/2021 AM EDT 12:24 PM EDT Comment: Left chest tube placement. Resulting Agency Comment Spec In Lab Vick Boss MD MICROBIOLOGY - GENERAL ORDER [facility] Performing Organization Address City/State/ZIP Code Phon e Number [place], [place] [id number] [place] [address] Body Fluid Culture, Aerobic (07/10/2021 11:45 AM EDT)Only the most recent of2 resultswithin the time period is included. Component Value Ref Test Analysis Performed At [facility] Method Time Signature Body Fluid No growth TAJ Culture [facility] LABORATORY Gram Stain Cytocentrifuge Gram Stain performed [facility] No Neutrophils seen. [facility] No microorganisms seen. [facility] LABORATORY Specimen Anatomical Collection Method Collection Time Receive d Time (Source) Location / / Volume Laterality Fluid 07/10/2021 11:45 07/10/2021 AM EDT 12:24 PM EDT Comment: Left chest tube placement. Resulting Agency Comment Spec In Lab Vick Boss MD MICROBIOLOGY - GENERAL ORDER [facility] Performing Organization Address City/[facility]/ZIP Code Phon e Number [facility] [address] Film Library- Storage Only CT Chest Abdomen Pelvis (07/09/2021 1:33 PM EDT) Specimen (Source) Anatomical Location Collection Method / Collectio n Time Received Time / Laterality Volume Narrative RAD - 07/09/2021 1:33 PM EDT This exam is auto-finalizing. It's purpo se is for storage only. Nolan Beth MD IMG FILM LIBRARY ORDERABLES Performing Organization Address City/[facility]/ZIP Code Phon e Number [place], [place] SCAN DOC: ORDS - PROVIDER CARE (07/09/2021 12:00 AM EDT) Narrative This result has an attachment that is no t available. Unknown MEDIA MGR SCAN EXT ORDR/RSLT from Last 3 Months Insurance Payer Benefit Plan / Subscriber ID Effective Dates Phone Addre ss Type Group MEDICARE MEDICARE PART [id number] 2018-Prese [phone] [address] [place] [id number] [place] [id number] 2019-Prese [phone] [address] [place] [address] Advance Directives Latest Code Status on File Code Status Date Activated Date Inactivated Comments Suspended DNR 07/10/2021 10:02 AM 07/11/2021 4:39 AM Code Status decision made by: Patient Content of discussion: full resusitation during periprocedur eal period Care Teams Quality Assistant Relationship Specialty Start Date End Date Katia Mccallum PA PCP - General General Internal Medicine 11/10/18 [address] [place] [id number]
--- OUTSIDE RECORDS SUMMARY | 2021-09-28 02:22 | XMS_ITS | Encounter Summary ---
:1950 Author Organization [facility] [place] [address] Care Team Providers Name Role Phone Katia Mccallum Primary Care Provider Encounter Details Date Type Department Care Team Description 11/25/2019 Telephone Cardiology at [facility] Gayla Ochoa RN [facility] [place] [address] Social History Tobacco Use Types Packs/Day Years Used Date Never Assessed Sex Assigned at Date Recorded Not on file documented as of this encounter Miscellaneous Notes Telephone Encounter - Gayla Ochoa RN - 11/25/2019 11:44 AM EDT Maru called and is requesting acceptance of a referral to [facility] Cardiology for Tim. States that Timnormally sees Dr[facility] at [facility] however due to [facility] device clinic is not up and running at this time Dr. Rosenberg is placed a hold on repairing the pacemaker. Maru states that Tim's pacemaker has a fractured lead and is shocking him at least 5 times a day. He fell 3 times on 11/24/19 due to the shocks and required EMS on the final fall. He is being woken upin the middle of night by these shocks. Explained to Maru that I would do some research about getting Tim accepted into the clinic or recommendations. I explained that I would call her back once I had information. Maru verbalized understanding documented in this encounter Plan of Treatment Not on filedocumented as of this encounter Visit Diagnoses Not on filedocumented in this encounter Care Teams Sales Branch Manager Relationship Specialty Start Date End Date Katia Mccallum PA PCP - General General Internal Medicine 11/10/18 [address] [place] [phone] documented as of this encounter
[2021-09-28] MEDS: Inhaler, Assist Device 1 EACH MC (14:08)
[2021-09-28] MEDS: Albuterol HFA 18 GM 200 PUFF INH IH (14:08)
--- NOTE | 2021-10-02 17:56 | W.PFT ---
Date of service: 09/28/21 Time of Service: 12:59 Pulmonary Function Test Result Requesting Provider Duchene Indications: Trapped Lung Interpretation Spirometry: There is restrictive appearing spirometry. There is no bronchodilator response. Muscle strength testing could not be performed due to pain. Lung Volumes: Plethysmography could not be performed due to dyspnea. Diffusion Capacity: There is reduced diffusion. Impression Likely moderate to severe restrictive lung disease. Clinical Correlation therefore is recommended.
== END 2021-09-28 02:06 | disposition home or self-care (01) ==
LOC: RT 02:05
PROVIDERS: Visit Provider Student in an Organized Health Care Education/Training Program
DX: R94.2 Abnormal results of pulmonary function studies (principal); J98.19 Other pulmonary collapse
CPT/HCPCS: 94060; 94729

== ENCOUNTER 2021-10-16 18:50 | Outpatient (REF) | payer MEDICARE, MEDICAID, SELFPAY ==
[2021-10-16 19:00] LABS: Abs Immature Grans 0.07 10^3/uL (0.0-0.06); Absolute Basophil Count 0.06 10^3/uL (0.0-0.2); Absolute Eosinophil Count 0.12 10^3/uL (0.0-0.7); Absolute Lymphocyte Count 1.89 10^3/uL (1.2-3.4); Absolute Monocyte Count 1.09 10^3/uL (0.1-0.8); Absolute Neutrophil Count 5.37 10^3/uL (1.2-6.7); Basophils % 0.7; Eosinophils % 1.4; HCT 33.7 % (40.0-50.0); HGB 11.3 g/dL (13.5-17.5); Immature Grans % 0.8; MCHC 33.5 % (32.0-36.0); MCV 99 fL (80-95); MPV 11.1 fL (8.0-11.0); Monocytes % 12.7; Neutrophils % 62.4; Platelet Count 289 10^3/uL (130-400); RBC 3.42 10^6/uL (4.36-5.78); RDW 12.2 % (11.8-14.1)
[2021-10-16 19:35] LABS: ALT 23 U/L (16-63); AST 18 U/L (15-37); Albumin 3.2 g/dL (3.4-5.0); Alkaline Phosphatase 80 U/L (46-116); BUN 14 mg/dL (7-18); Bilirubin, Total 0.2 mg/dL (0.2-1.0); CREATININE 0.8 mg/dL (0.70-1.30); Calcium 8.8 mg/dL (8.5-10.1); Chloride 94 mmol/L (98-107); Glucose 102 mg/dL (74-106); Potassium 5.5 mmol/L (3.5-5.1); Sodium 129 mmol/L (136-145); Total Protein 7.5 g/dL (6.4-8.2)
== END 2021-10-16 18:51 | disposition home or self-care (01) ==
LOC: LBN 18:50
PROVIDERS: Visit Provider Nurse Practitioner Gerontology
DX: R50.9 Fever, unspecified (principal); R53.83 Other fatigue; R68.89 Other general symptoms and signs
CPT/HCPCS: 80053; 85025

== ENCOUNTER → 2021-10-19 08:21 | Outpatient (BNVA) | payer MEDICARE, MEDICAID, SELFPAY | PROVIDERS: Visit Provider Surgery | DX: L72.3 Sebaceous cyst (principal); L08.9 Local infection of the skin and subcutaneous tissue, unspecified | CPT/HCPCS: 10060; 99213 ==

== ENCOUNTER 2021-10-24 18:14 | Outpatient (REF) | payer MEDICARE, MEDICAID, SELFPAY ==
--- OUTSIDE RECORDS SUMMARY | 2021-10-24 18:16 | XMS_ITS | Encounter Summary ---
:1950 Author Organization [facility] Address [address] [place] [address] Care Team Providers Name Role Phone Katia Mccallum PA-C Primary Care Provider [phone] Encounter Details Date Type Department Care Team Description 09/15/[address] [facility] - Junior Ruiz MD [facility] Lab [address] [place] [address] [phone] (Wo rk) Social History Tobacco Use Types [...] nature WBC 6.7 4.0 - 10.[address] [facility] 3[facility] LAB RBC 3.26 (L) 4.70 - 6.[address] LAB Hemoglobin 11.2 (L) 13.5 - 18.0 [facility] g/dL [place] LAB HCT 31.9 (L) 42.0 - 52.0 % [facility] LAB MCV 97.9 78 - 100 fL [facility] LAB MCH 34.4 (H) 27 - 31 pg [facility] LAB MCHC 35.1 32 - 37 g/dL [facility] LAB RDW-CV - PMC 12.4 <14.7 % [facility] LAB PLATELET COUNT - PMC 256 150 - [address] LAB MPV 10.6 9.2 - 12.0 fL [facility] LAB Specimen Performing Organization Address City/State/ZIP Code Phon e Number [facility] LAB [address] [place] [address] documented in this encounter Visit Diagnoses Not on filedocumented in this encounter Care Teams Ribber Relationship Specialty Start Date End Date Katia Mccallum PA-C PCP - General 05/02/[address] [place] [id number] documented as of this encounter
--- OUTSIDE RECORDS SUMMARY | 2021-10-24 18:16 | XMS_ITS | Encounter Summary ---
:1950 Author Organization [facility] Address [address] [place] [address] Care Team Providers Name Role Phone Katia Mccallum PA-C Primary Care Provider Reason for Visit Reason Onset Date Comments Discuss Possible Transfer 06/20/2021 Encounter Details Date Type Department Care Team Description 06/20/2021 Telephone [facility] Amos Romero, Discuss Possible [address] [place] [address] [place], [place] [phone] [phone] (Wo rk) Social History Tobacco [...] 06/20/2021 1415 EDT PPS Call Requesting Facility: [facility] Requesting Provider: Dr. Alegria Date: 06/20/21 Time [...] effusion (per read from imaging 08/08/20 from [facility], thisis chronic) and R iliac + gluteal [...] on filedocumented in this encounter Care Teams Business Economist Relationship Specialty Start Date End Date Katia Mccallum PA-C PCP - General 05/02/[address] [place] [id number] documented as of this encounter
--- OUTSIDE RECORDS SUMMARY | 2021-10-24 18:16 | XMS_ITS | Encounter Summary ---
:1950 Author Organization [facility] Address [address] [place] [address] Care Team Providers Name Role Phone Katia Mccallum PA-C Primary Care Provider [phone] Encounter Details Date Type Department Care Team Description 06/21/2021 Lab Requisition [facility] [place] Price A cute cholecystitis Pathology & DO Laboratory Medicine - [address] [facility] [address] [place] [phone] Social History Tobacco Use Types Packs/Day Years [...] 11:58 EDT) Note to Patient The following [facility] pathology results CENTER have been interpreted LABORATORY [...] CENTER LABORATORY SERVICES Attestation There was significant [facility] MEDICAL Electr onically resident/fellow CENTER signed by Ab hever Raines involvement in the LABORATORY Hallie Orosco on diagnostic evaluation SERVICES 022 at 1043 of this case. By the signature below, the attending physician certifies that they have personally conducted a gross and/or microscopic examination of the described specimens and rendered or confirmed the above diagnosis. Clinical History Cholecystitis [facility] LABORATORY SERVICES Gross Description A. [facility] MEDICAL Received in formalin edy d with [...] or free-floating within the container. SERVICES Two congressional representative sections and the en face cystic duct margin are submitted in A1. GIRISH GOMEZ(ASC) 06/22/2021 7:58 Resident/Fellow: Chayo Chatman MD [facility] LABORATORY SERVICES Performing Lab [facility] LABORATORY SERVICES Scanned Images [facility] LABORATORY SERVICES Specimen Tissue - Entire gallbladder (body struct ure) Performing Organization Address City/State/ZIP Code Phon e Number [facility] LABORATORY [address] [place] [address] SERVICES documented in this encounter Visit Diagnoses Diagnosis Acute cholecystitis documented in this encounter Care Teams Air Brake Mechanic Relationship Specialty Start Date End Date Katia Mccallum PA-C PCP - General 05/02/[address] [place] [address] documented as of this encounter
--- OUTSIDE RECORDS SUMMARY | 2021-10-24 18:16 | XMS_ITS | Encounter Summary ---
:[address] [facility] Address [address] [place] [address] Care Team Providers Name Role Phone Katia Mccallum PA-C Primary Care Provider [phone] Reason for Visit Reason Comments Diarrhea Extremity Weakness Alcohol Problem Palliative Care Symptom Management Encounter Details Date Type Department Care Team Description 08/25/2020 External Contact [facility] Cooper Stinson MD Frailty (Primary Dx); - [facility] [address] [place] ETOH abus e; Center Palliative [address] Grief; [facility] Palliative care by ge[facility] Christian [address] [place] [phone] (Wo rk) Social History Tobacco Use [...] chronic ETOH use who was admitted to [facility] with weakness, diarrhea, and regular ETOH consumption. [...] be receptive to formal psychotherapy. A bereavement shovel mechanic through [facility] may be a good fit as well. Re: his advance directive. 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 Present for Visit: [...] his heart attack and was transferred to [place]. He has had several cardiac issues since. He is originally from [place] and lived in the [place] area until 2018 when his medical issues became more acute. S shannan then, he has lived in [place] [place], had lived with his son Tyrese until his and more recently living with Tyrese's partner Whitney. He was raised on a farm in [place] with 7 siblings. He farmed himself, then [...] Stinson MD 08/25/2020 16:11 Site of Visit: [facility] I spent a total of 55 minutes [...] specialist documented in this encounter Care Teams Gate Technician Relationship Specialty Start Date End Date Katia Mccallum PA-C PCP - General 05/02/[address] [place] [id number] documented as of this encounter
--- OUTSIDE RECORDS SUMMARY | 2021-10-24 18:16 | XMS_ITS | Encounter Summary ---
:1950 Author Organization [facility] Address [address] [place] [address] Care Team Providers Name Role Phone Katia Mccallum PA-C Primary Care Provider [phone] Encounter Details Date Type Department Care Team Description 09/02/2020 Results Only [facility] Rowan Abad NP [phone] [place] [phone] (Wo rk) Social History Tobacco Use [...] EDT) Creatinine 0.61 (L) 0.70 - 1.30 [facility] mg/dl [facility]ENTER LAB Estimated GFR >60 >60 [facility] Comment: CENTER LAB EGFR UNITS: mL/min/1.73 m 2 CKD-EPI Equation used to calculate. Specimen Performing Organization Address City/[facility] Phon e Number [facility] [address] [place] [address] PLATELET COUNT (09/02/2020 6:18 EDT) Pathologist Sig nature PLATELET COUNT - PMC 247 150 - 450 10 [facility] 3/uL [facility]ENTER LAB Specimen Narrative [facility] - 09/02/2020 7 :06 EDT Comment ENOXAPARIN MONITORING Performing Organization Address City/[facility]/ZIP [facility] Phon e Number [facility] [address] [place] [address] documented in this encounter Visit Diagnoses Not on filedocumented in this encounter Care Teams Box Gluer Relationship Specialty Start Date End Date Katia Mccallum PA-C PCP - General 05/02/[address] [place] [id number] documented as of this encounter
--- OUTSIDE RECORDS SUMMARY | 2021-10-24 18:16 | XMS_ITS | Encounter Summary ---
:1950 Author Organization [facility] Address [address] [place] [address] Care Team Providers Name Role Phone Katia Mccallum PA-C Primary Care Provider [phone] Encounter Details Date Type Department Care Team Description 09/05/2020 Results Only [facility] Rowan Abad NP [phone] [place] [phone] (Wo rk) Social History Tobacco Use [...] EDT) WBC 6.4 4.0 - 10.5 10 [facility] 3/uL CENTER LAB RBC 3.40 (L) 4.70 - 6.00 10 [facility] 6/[facility] LAB Hemoglobin 11.6 (L) 13.5 - 18.0 g/dL [facility] LAB HCT 33.9 (L) 42.0 - 52.0 % [facility] LAB MCV 99.7 78 - 100 fL [facility] LAB MCH 34.1 (H) 27 - 31 pg [facility] LAB MCHC 34.2 32 - 37 g/dL [facility] LAB RDW-CV - PMC 13.1 <14.7 % [facility] LAB PLATELET COUNT - 253 150 - 450 10 3/uL [facility] LAB MPV 10.9 9.2 - 12.0 fL [facility] LAB NEUTROPHILS % 57.6 % [facility] (AUTO) - [facility] C[facility] LAB LYMPHOCYTES % 25.0 % [facility] (AUTO) - [facility] C[facility] LAB MONOCYTES % (AUTO) 13.3 % [facility] LAB EOSINOPHILS % 2.7 NOT ESTABLISHED % [facility] (AUTO) - [facility] C[facility] LAB BASOPHILS % (AUTO) 1.1 % [facility] LAB Immature 0.3 % [facility] Granulocyte % CENTER LAB (Auto) NUCLEATED RBC % 0.0 % [facility] (AUTO) - [facility] LAB NEUTROPHILS # 3.7 1.5 - 6.6 10 3/uL [facility] (AUTO) - [facility] LAB LYMPHOCYTES # 1.6 1.0 - 3.5 10 3/uL [facility] (AUTO) - [facility] LAB MONOCYTES # (AUTO) 0.9 <1.0 10 3/uL [facility] LAB EOSINOPHILS # 0.2 <0.7 10 3/uL [facility] (AUTO) - [facility] LAB BASOPHILS # (AUTO) 0.1 <0.1 10 3/uL [facility] LAB Absolute Immature 0.02 <0.06 10 3/uL [facility] Granulocyte [place] [facility] DIFFERENTIAL Auto Differential [facility] LAB Specimen Performing Organization Address [facility] LAB [address] [place] [address] MAGNESIUM (09/05/2020 14:30 EDT) Pathologist Sig nature Magnesium 1.8 1.8 - 2.4 mg/dl [facility] LAB Specimen Performing Organization Address [facility] LAB [address] [place] [address] (ABNORMAL) BASIC METABOLIC PANEL (BMP) (09/05/2020 14:30 EDT) Sodium 132 (L) 136 - 145 mEq/L [facility] LAB Potassium 4.3 3.5 - 5.1 mEq/L [facility] Chloride 99 96 - 107 mEq/L [facility] LAB CO2 Total 26.5 21 - 32 mEq/L [facility] LAB Anion Gap 6.5 mEq/L [facility] BUN 12 7 - 25 mg/dl [facility] LAB Creatinine 0.60 (L) 0.70 - 1.30 [facility] mg/dl [place] [facility] Estimated GFR >60 >60 [facility] Comment: CENTER LAB EGFR UNITS: mL/min/1.73 m 2 CKD-EPI Equation used to calculate. Glucose 100 74 - 106 mg/dl [facility] LAB Calcium 8.6 8.5 - 10.1 [facility] mg/dl [place] [facility] Specimen Performing Organization Address [facility] LAB [address] [place] [address] documented in this encounter Visit Diagnoses Not on filedocumented in this encounter Care Teams Anti Tank Missileman Relationship Specialty Start Date End Date Katia Mccallum PA-C PCP - General 05/02/17 [address] [place] [id number] documented as of this encounter
--- OUTSIDE RECORDS SUMMARY | 2021-10-24 18:16 | XMS_ITS | Encounter Summary ---
:1950 Author Organization [facility] Address [address] [place] [address] Care Team Providers Name Role Phone Katia Mccallum PA-C Primary Care Provider [phone] Encounter Details Date Type Department Care Team Description 09/10/2020 Results Only [facility] Rowan Abad NP [phone] [place] [phone] (Wo rk) Social History Tobacco Use [...] nature PLATELET COUNT - [facility] 250 150 - 450 10 [facility] 3/uL CENTER LAB Specimen Narrative [facility] - 09/10/2020 6 :49 EDT Comment ENOXAPARIN MONITORING Performing Organization Address City/[facility] Code Phon e Number [facility] [address] [place] [address] (ABNORMAL) CREATININE WITH GFR - PMC (09/10/2020 5:40 EDT) Creatinine 0.57 (L) 0.70 - 1.30 [facility] mg/dl [facility]ENTER LAB Estimated GFR >60 >60 [facility] Comment: CENTER LAB EGFR UNITS: mL/min/1.73 m 2 CKD-EPI Equation used to calculate. Specimen Performing Organization Address [facility] e [facility] LAB [address] [place] [address] documented in this encounter Visit Diagnoses Not on filedocumented in this encounter Care Teams Soft Work Wrapper Examiner Relationship Specialty Start Date End Date Katia Mccallum PA-C PCP - General 05/02/17 [address] [place] [id number] documented as of this encounter
--- OUTSIDE RECORDS SUMMARY | 2021-10-24 18:16 | XMS_ITS | Encounter Summary ---
:1950 Author Organization [facility] Address [address] [place] [address] Care Team Providers Name Role Phone Katia Mccallum PA-C Primary Care Provider [phone] Encounter Details Date Type Department Care Team Description 08/22/2020 Results Only [facility] Rowan Abad NP [phone] [place] [phone] (Wo rk) Social History Tobacco Use [...] nature Magnesium 1.8 1.8 - 2.4 mg/dl [facility] LAB Specimen Performing Organization Address [facility] Phon e [facility] [address] [place] [address] (ABNORMAL) BASIC METABOLIC PANEL (BMP) (08/22/2020 5:30 EDT) Sodium 133 (L) 136 - 145 mEq/L [facility] LAB Potassium 3.7 3.5 - 5.1 mEq/L [facility] LAB Chloride 101 96 - 107 mEq/L [facility] LAB CO2 Total 26.1 21 - 32 mEq/L [facility] LAB Anion Gap 6.9 mEq/L [facility] LAB BUN 8 7 - 25 mg/dl [facility] LAB Creatinine 0.67 (L) 0.70 - 1.30 [facility] mg/dl [facility]ENTER LAB Estimated GFR >60 >60 [facility] Comment: CENTER LAB EGFR UNITS: mL/min/1.73 m 2 CKD-EPI Equation used to calculate. Glucose 94 74 - 106 mg/dl [facility] LAB Calcium 8.2 (L) 8.5 - 10.1 [facility] mg/dl [facility]ENTER LAB Specimen Performing Organization Address [facility] Phon e Number [facility] [address] [place] [address] (ABNORMAL) COMPLETE BLOOD COUNT AND DIFFERENTIAL (08/22/2020 5:30 EDT) WBC 6.0 4.0 - 10.5 10 [facility] 3/uL [place] [facility] RBC 2.84 (L) 4.70 - 6.00 10 [facility] 6/uL [place] [facility] Hemoglobin 10.0 (L) 13.5 - 18.0 g/dL [facility] LAB HCT 28.3 (L) 42.0 - 52.0 % [facility] LAB MCV 99.6 78 - 100 fL [facility] LAB MCH 35.2 (H) 27 - 31 pg [facility] LAB MCHC 35.3 32 - 37 g/dL [facility] LAB RDW-CV - PMC 14.3 <14.7 % [facility] LAB PLATELET COUNT - 209 150 - 450 10 3/uL [facility] LAB MPV 11.7 9.2 - 12.0 fL [facility] LAB NEUTROPHILS % 58.1 % [facility] (AUTO) [facility] LYMPHOCYTES % 22.9 % [facility] (AUTO) [facility] MONOCYTES % (AUTO) 14.4 % [facility] LAB EOSINOPHILS % 3.3 NOT ESTABLISHED % [facility] (AUTO) [facility] BASOPHILS % (AUTO) 1.0 % [facility] LAB Immature 0.3 % [facility] Granulocyte % [facility]ENTER LAB (Auto) NUCLEATED RBC % 0.0 % [facility] (AUTO) [facility] LAB NEUTROPHILS # 3.5 1.5 - 6.6 10 3/uL [facility] (AUTO) [facility] LAB LYMPHOCYTES # 1.4 1.0 - 3.5 10 3/uL [facility] (AUTO) [facility] LAB MONOCYTES # (AUTO) 0.9 <1.0 10 3/uL [facility] LAB EOSINOPHILS # 0.2 <0.7 10 3/uL [facility] (AUTO) [facility] LAB BASOPHILS # (AUTO) 0.1 <0.1 10 3/uL [facility] LAB Absolute Immature 0.02 <0.06 10 3/uL [facility] Granulocyte [place] [facility] DIFFERENTIAL Auto Differential [facility] LAB Specimen Performing Organization Address City/State/ZIP Code Phon e Number [facility] [address] [place] [address] documented in this encounter Visit Diagnoses Not on filedocumented in this encounter Care Teams Golf Ball Marker Relationship Specialty Start Date End Date Katia Mccallum PA-C PCP - General 05/02/[address] [place] [id number] documented as of this encounter
--- OUTSIDE RECORDS SUMMARY | 2021-10-24 18:16 | XMS_ITS | Encounter Summary ---
:1950 Author Organization [facility] Address [address] [place] [address] Care Team Providers Name Role Phone Katia Mccallum PA-C Primary Care Provider [phone] Encounter Details Date Type Department Care Team Description 08/25/2020 Results Only [facility] Rowan Abad NP [phone] [place] [phone] (Wo rk) Social History Tobacco Use [...] GRAM SMEAR - PMC SEE NOTES (A) [facility] Comment: CENTER LAB RESULT: Few Neutrophils Present No bacteria seen SWATI Few Usual skin jesi [facility] RESULTS/ORGANISM Comment: CENTER LAB ID - PMC Spec Description ?? Additional Information:: LEFT ARM Source:ARM Test [place] [address] [facility] - 08/27/2020 1 7:20 EDT ARM LEFT ARM Performing Organization Address City/State/ZIP Code Phon e Number [facility] [address] [place] [address] HERPES SIMPLEX VIRUS MOLECULAR DETECTION, PCR (08/25/2020 14:15 EDT) HERPES SIMPLEX Negative Negative [facility] I DNA - PMC [facility]ENTER LAB HERPES SIMPLEX Negative Negative [facility] 2 DNA - PMC Comment: CENTER LAB SOURCE:: ARM Spec Description ?? Additional Information:: LEFT ARM Source:LEFT ARM Test performed or referred by The [address] [facility] - 08/26/2020 1 9:39 EDT ARM LEFT ARM Performing Organization Address [facility] Phon e Number [facility] [address] [place] [address] (ABNORMAL) CREATININE WITH GFR - PMC (08/25/2020 6:09 EDT) Creatinine 0.60 (L) 0.70 - 1.30 [facility] mg/dl CENTER LAB Estimated GFR >60 >60 [facility] Comment: CENTER LAB EGFR UNITS: mL/min/1.73 m 2 CKD-EPI Equation used to calculate. Specimen Performing Organization Address [facility] Phon e Number [facility] [address] [place] [address] PLATELET COUNT (08/25/2020 6:09 EDT) Pathologist Sig nature PLATELET COUNT - [facility] 326 150 - 450 10 [place] [address]/uL [facility]ENTER LAB Specimen Narrative [facility] - 08/25/2020 7 :06 EDT Comment ENOXAPARIN MONITORING Performing Organization Address [facility] Phon e Number [facility] [address] [place] [address] documented in this encounter Visit Diagnoses Not on filedocumented in this encounter Care Teams Professional Driver Relationship Specialty Start Date End Date Katia Mccallum PA-C PCP - General 05/02/[address] [place] [address] documented as of this encounter
--- OUTSIDE RECORDS SUMMARY | 2021-10-24 18:16 | XMS_ITS | Encounter Summary ---
:1950 Author Organization [facility] Address [address] [place] [address] Care Team Providers Name Role Phone Katia Mccallum PA-C Primary Care Provider Encounter Details Date Type Department Care Team Description 08/25/2020 Lab Requisition [facility] Outr Resulting Lab, Pathology & Laboratory Provider [facility] [address] [place] [phone] Social History Tobacco Use Types Packs/Day Years [...] nature Organism ID Few Usual skin jesi [facility] LABORATORY SERVICES Smear Few Neutrophils [facility] Present (A) LABORATORY SERVICES Smear No bacteria seen (A) [facility] SERVICES Specimen Swab - Entire upper limb (body structure ) Performing Organization Address City/State/ZIP Code Phon e Number [facility]OR[facility]ORY [address] [place] [address] SERVICES documented in this encounter Visit Diagnoses Not on filedocumented in this encounter Care Teams Welfare Supervisor Relationship Specialty Start Date End Date Katia Mccallum PA-C PCP - General 05/02/17 [address] [place] [address] documented as of this encounter
--- OUTSIDE RECORDS SUMMARY | 2021-10-24 18:16 | XMS_ITS | Encounter Summary ---
:1950 Author Organization [facility] Address [address] [place] [address] Care Team Providers Name Role Phone Katia Mccallum PA-C Primary Care Provider [phone] Encounter Details Date Type Department Care Team Description 09/06/2020 Results Only [facility] Rowan Abad NP [phone] [place] [phone] (Wo rk) Social History Tobacco Use [...] Sig nature PLATELET COUNT - [facility] 236 150 - 450 10 [facility] 3/uL [facility]ENTER LAB Specimen Narrative [facility] - 09/06/2020 5 :58 EDT Comment ENOXAPARIN MONITORING Performing Organization Address City/[facility] Code Phon e Number [facility] [address] [place] [address] (ABNORMAL) CREATININE WITH GFR - PMC (09/06/2020 5:05 EDT) Creatinine 0.60 (L) 0.70 - 1.30 [facility] mg/dl CENTER LAB Estimated GFR >60 >60 [facility] Comment: [facility]ENTER [facility] EGFR UNITS: mL/min/1.73 m 2 CKD-EPI Equation used to calculate. Specimen Performing Organization Address [facility] e [facility] LAB [address] [place] [address] documented in this encounter Visit Diagnoses Not on filedocumented in this encounter Care Teams Pie Chef Relationship Specialty Start Date End Date Katia Mccallum PA-C PCP - General 05/02/[address] [place] [id number] documented as of this encounter
--- OUTSIDE RECORDS SUMMARY | 2021-10-24 18:16 | XMS_ITS | Encounter Summary ---
:1950 Author Organization [facility] Address [address] [place] [address] Care Team Providers Name Role Phone Katia Mccallum PA-C Primary Care Provider [phone] Encounter Details Date Type Department Care Team Description 06/23/2021 Lab Requisition [facility] Outr Resulting Lab, Pathology & Laboratory Provider [facility] [address] [place] [address] Social History Tobacco Use Types [...] Sig nature Osmolality, Urine 509 150-1,150 mOsm/kg [facility] Specimen Urine - Urine specimen collection, clean catch (procedure) Performing Organization Address City/State/ZIP Code Phon e Number [facility] [address] [place] [address] SERVICES documented in this encounter Visit Diagnoses Not on filedocumented in this encounter Care Teams Ip Architect Relationship Specialty Start Date End Date Katia Mccallum PA-C PCP - General 05/02/[address] [place] [id number] documented as of this encounter
--- OUTSIDE RECORDS SUMMARY | 2021-10-24 18:16 | XMS_ITS | Encounter Summary ---
:1950 Author Organization [facility] Address [address] [place] [address] Care Team Providers Name Role Phone Katia Mccallum PA-C Primary Care Provider [phone] Encounter Details Date Type Department Care Team Description 09/26/2020 Results Only [facility] Rowan Abad NP [phone] [place] [phone] (Wo rk) Social History Tobacco Use [...] Magnesium 1.7 (L) 1.8 - 2.4 mg/dl [facility] Specimen Performing Organization Address [facility] Phon e [facility] [address] [place] [address] (ABNORMAL) BASIC METABOLIC PANEL (BMP) (09/26/2020 14:33 EDT) Sodium 131 (L) 136 - 145 mEq/L [facility] Potassium 4.2 3.5 - 5.1 mEq/L [facility] Chloride 96 96 - 107 mEq/L [facility] CO2 Total 30.9 21 - 32 mEq/L [facility] Anion Gap 3.1 mEq/L [facility] BUN 10 7 - 25 mg/dl [facility] Creatinine 0.82 0.70 - 1.30 [facility] mg/dl [facility]ENTER [facility] Estimated GFR >60 >60 [facility] Comment: CENTER LAB EGFR UNITS: mL/min/1.73 m 2 CKD-EPI Equation used to calculate. Glucose 111 (H) 74 - 106 mg/dl [facility] Calcium 8.6 8.5 - 10.1 [facility] mg/dl [facility]ENTER [facility] Specimen Performing Organization Address [facility] Phon e Number [facility] [address] [place] [address] (ABNORMAL) COMPLETE BLOOD COUNT AND DIFFERENTIAL (09/26/2020 14:33 EDT) WBC 7.3 4.0 - 10.5 10 [facility] 3/uL [facility] RBC 3.30 (L) 4.70 - 6.00 10 [facility] 6/uL [facility] Hemoglobin 11.2 (L) 13.5 - 18.0 g/dL [facility] HCT 32.0 (L) 42.0 - 52.0 % [facility] MCV 97.0 78 - 100 fL [facility] MCH 33.9 (H) 27 - 31 pg [facility] MCHC 35.0 32 - 37 g/dL [facility] RDW-CV - PMC 11.7 <14.7 % [facility] PLATELET COUNT - 291 150 - 450 10 3/uL [facility] MPV 11.0 9.2 - 12.0 fL [facility] NEUTROPHILS % 59.3 % [facility] (AUTO) [facility] LYMPHOCYTES % 23.9 % [facility] (AUTO) [facility] MONOCYTES % (AUTO) 12.3 % [facility] EOSINOPHILS % 2.9 NOT ESTABLISHED % [facility] (AUTO) [facility] BASOPHILS % (AUTO) 1.0 % [facility] Immature 0.6 % [facility] Granulocyte % [facility]ENTER [facility] (Auto) NUCLEATED RBC % 0.0 % [facility] (AUTO) [facility] NEUTROPHILS # 4.3 1.5 - 6.6 10 3/uL [facility] (AUTO) [facility] LYMPHOCYTES # 1.7 1.0 - 3.5 10 3/uL [facility] (AUTO) [facility] MONOCYTES # (AUTO) 0.9 <1.0 10 3/uL [facility] EOSINOPHILS # 0.2 <0.7 10 3/uL [facility] (AUTO) [facility] BASOPHILS # (AUTO) 0.1 <0.1 10 3/uL [facility] Absolute Immature 0.04 <0.06 10 3/uL [facility] Granulocyte [facility] DIFFERENTIAL Auto Differential [facility] Specimen Performing Organization Address City/State/ZIP Code Phon e Number [facility] [address] [place] [address] documented in this encounter Visit Diagnoses Not on filedocumented in this encounter Care Teams Nutrition Services Associate Relationship Specialty Start Date End Date Katia Mccallum PA-C PCP - General 05/02/[address] [place] [id number] documented as of this encounter
--- OUTSIDE RECORDS SUMMARY | 2021-10-24 18:16 | XMS_ITS | Encounter Summary ---
:1950 Author Organization [facility] Address [address] [place] [address] Care Team Providers Name Role Phone Katia Mccallum PA-C Primary Care Provider [phone] Encounter Details Date Type Department Care Team Description 09/14/2020 Results Only [facility] Rowan Abad NP [phone] [place] [phone] (Wo rk) Social History Tobacco Use [...] INSTITUTE 94 (L) 150 - 450 10 [facility] 3/uL CENTER LAB Specimen Narrative [facility] - 09/14/2020 6 :16 EDT Comment ENOXAPARIN MONITORING Performing Organization Address City/[facility] Phon e Number [facility] [address] [place] [address] (ABNORMAL) CREATININE WITH GFR - PMC (09/14/2020 5:35 EDT) Creatinine 0.58 (L) 0.70 - 1.30 [facility] mg/dl [facility]ENTER LAB Estimated GFR >60 >60 [facility] Comment: CENTER LAB EGFR UNITS: mL/min/1.73 m 2 CKD-EPI Equation used to calculate. Specimen Performing Organization Address [facility] e [facility] LAB [address] [place] [address] documented in this encounter Visit Diagnoses Not on filedocumented in this encounter Care Teams Specialist Managers Relationship Specialty Start Date End Date Katia Mccallum PA-C PCP - General 05/02/[address] [place] [id number] documented as of this encounter
--- OUTSIDE RECORDS SUMMARY | 2021-10-24 18:16 | XMS_ITS | Encounter Summary ---
:1950 Author Organization [facility] Address [address] [place] [address] Care Team Providers Name Role Phone Katia Mccallum PA-C Primary Care Provider [phone] Reason for Visit (Routine/Next Available) - New Request Specialty Diagnoses / Procedures Referred By Contact Refer red To Contact Procedures Unknown, Provider, CT OUTSIDE IMAGES BODY Phone: Referral ID Status Reason Start Date Expiration Date Visits V isits Requested Authorized [id number] New Request 06/20/2021 1 1 Encounter Details Date Type Department Care Team Description 06/20/2021 Hospital Encounter [facility] Secondary [place] Social History [...] on filedocumented in this encounter Care Teams Answering Service Telephone Operator Relationship Specialty Start Date End Date Katia Mccallum PA-C PCP - General 05/02/[address] [place], [place] [id number] documented as of this encounter
--- OUTSIDE RECORDS SUMMARY | 2021-10-24 18:16 | XMS_ITS | Encounter Summary ---
:1950 Author Organization [facility] Address [address] [place] [address] Care Team Providers Name Role Phone Katia Mccallum PA-C Primary Care Provider [phone] Encounter Details Date Type Department Care Team Description 08/25/2020 Lab Requisition [facility] Outr Resulting Lab, Pathology & Laboratory Provider [facility] [address] [place] [id number] Social History Tobacco Use Types Packs/Day Years [...] Sig nature Herpes Simplex Virus Negative Negative [facility] Molecular Detection 1, LABORATORY SERVICE S PCR Herpes Simplex Virus Negative Negative [facility] Molecular Detection 2, LABORATORY SERVICE S PCR Specimen Swab - Entire upper limb (body structure ) Performing Organization Address City/State/ZIP Code Phon e Number [facility] [address] [place] [address] SERVICES documented in this encounter Visit Diagnoses Not on filedocumented in this encounter Care Teams Printing Bindery Assistant Relationship Specialty Start Date End Date Katia Mccallum PA-C PCP - General 05/02/[address] [place] [id number] documented as of this encounter
--- OUTSIDE RECORDS SUMMARY | 2021-10-24 18:16 | XMS_ITS | Encounter Summary ---
:1950 Author Organization [facility] Address [address] [place] [address] Care Team Providers Name Role Phone Katia Mccallum PA-C Primary Care Provider [phone] Encounter Details Date Type Department Care Team Description 08/29/2020 Results Only [facility]- [facility] Rowan Abad NP [phone] [place] [phone] (Wo rk) Social History Tobacco Use [...] EDT) Creatinine 0.61 (L) 0.70 - 1.30 [facility] mg/dl CENTER LAB Estimated GFR >60 >60 [facility] Comment: CENTER LAB EGFR UNITS: mL/min/1.73 m 2 CKD-EPI Equation used to calculate. Specimen Performing Organization Address City/[facility]/ZIP [facility] Phon e Number [facility] [address] [place] [address] PLATELET COUNT (08/29/2020 5:05 EDT) Pathologist Sig nature PLATELET COUNT - [facility] 324 150 - 450 10 [facility] 3/uL [facility]ENTER [facility] Specimen Narrative [facility] - 08/29/2020 5 :41 EDT Comment ENOXAPARIN MONITORING Performing Organization Address City/[facility]/ZIP [facility] Phon e Number [facility] [address] [place] [address] documented in this encounter Visit Diagnoses Not on filedocumented in this encounter Care Teams Analytic Manager Relationship Specialty Start Date End Date Katia Mccallum PA-C PCP - General 05/02/[address] [place] [id number] documented as of this encounter
--- OUTSIDE RECORDS SUMMARY | 2021-10-24 18:16 | XMS_ITS | Clinical Summary ---
:1950 Author Organization [facility] Address [address] [place] [address] Care Team Providers Name Role Phone Katia Mccallum PA-C Primary Care Provider [phone] Allergies No known active allergies Medications Medication Sig Dispensed Refills Start Date End Date Status acetaminophen (TYLENOL) Take 1,000 mg by 0 Active 500 mg tablet mouth 2 times daily. colchicine (COLCRYS) 0.6 Take 1 Tab by 60 Tab 0 05/27/2017 Active mg tablet mouth 2 times daily. torsemide (DEMADEX) 20 Take 2 Tabs by 60 Tab 2 05/27/2017 Active mg tablet mouth daily. metoprolol (LOPRESSOR) Take 1 Tab by 60 Tab 3 06/16/2017 Active 25 mg tablet mouth 2 times daily. predniSONE (DELTASONE) Take 30mg 28 Tab 0 06/16/2017 Active 20 mg tablet (20+10) 06/17-06/30; 20mg (20) 07/01-07/14; 10mg (10) 07/15-07/28; 5mg (/2 of 10) 07/29-08/04 predniSONE (DELTASONE) Take 30mg 32 Tab 0 06/16/2017 Active 10 mg tablet (20+10) 06/17-06/30; 20mg (20) 07/01-07/14; 10mg (10) 07/15-07/28; 5mg (/2 of 10) 07/29-08/04 ibuprofen (MOTRIN) 200 Take 180 mg by 0 Active mg tablet mouth 2 times daily. omeprazole (PRILOSEC) 20 Take 20 mg by 0 Active mg capsule mouth daily. 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) 04/30/2017 Resolved Problems Problem Noted Date Resolved Date Acute on chronic diastolic congestive heart failure 05/02/19 18 05/27/2017 (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 Also lead repositioned ([facility]) ([facility]) 06/19/20 coming in f or removal of lead due to infection (re ason for pacer was complete heart block ) Obesity 06/19/20 Patient unable to exercise 06/19/20 Shortness of breath 06/19/20 all the olive e since infection ?? Hypertension 160/90 06/19/20 on m edication Heart murmur 06/19/20 Anemia H&H 11.3 and 31.2 , 01/2020 Arthritis 06/19/20 legs History of general anesthesia 06/19/20 w imtiaz up during aneshesia but did not feel anythin g with pacemaker surgery Poor dentition 06/19/20 not too man y all messed up Complete heart block ([facility]) ([facility]) now has pacemaker with infected lead CAD (coronary artery disease) 06/19/20 p er pt Community acquired pneumonia 06/19/20 pt states i get pneumonia every year - feels l bowen he has it now - had a collapsed sha ng whoel pacer issues per pt - Card iologist office aware Family History Medical History Relation Name Comments Heart Disease Brother Heart Disease Father Diabetes Mother Heart Disease Mother Heart Disease Other Relation Name Status Comments Brother Alive Brother Alive Brother Alive Brother Alive Father Mother Other Other children Sister Alive Sister Alive Social History Tobacco Use Types Packs/Day Years Used Date Never Smoker Smokeless Tobacco: Never Used Tobacco Cessation: Counseling Given: Yes Alcohol Use Standard Drinks/Week Comments Yes 0 [...] Sign Reading Time Taken Comments Blood Pressure 160/90 05/16/2020 1009 EDT Pulse 68 05/16/2020 1009 EDT regular Temperature 36.4 ??C (97.6 ??F) 05/16/2020 1009 EDT Respiratory Rate 18 05/16/2020 1009 EDT Oxygen Saturation 95% 05/16/2020 1009 EDT Inhaled Oxygen Concentration - - Weight 99.8 kg (220 lb) 06/19/2020 1612 EDT Height 182.9 cm (6') 06/19/2020 1612 EDT Body Mass Index 29.84 06/19/2020 1612 EDT Plan of Treatment Health Maintenance Due Date Last Done Comments Hepatitis C Screen 1950 COVID-19 Vaccine (#1) 10/06/1955 Fall Risk Screening 10/06/2015 Implants Implanted Type Area Core Cleaner Device Shelf Model / Identifier Expiration Date Ser ial / Lot [id number] Ingevity Mri - [id number] Lead [employer] 7742 Ingevity MRI / Implanted: 05/02/2017 (Quantity not on file) [id number] / Description: Implant record loaded by IM P Chronicles import. 3830 Selectsecure Mri Surescan - [id number] Lead Medtro velasquez 3830 SelectSecure MRI SureScan / Implanted: 05/21/2017 (Quantity not on file) [id number] / Description: Implant record loaded by IM P Chronicles import. L111 Essentio Mri - [id number] Pacemaker [employer] L111 ESSENTIO MRI / Implanted: 05/02/2017 (Quantity not on file) [id number] / Description: Implant record loaded by IM P Chronicles import. Insurance Payer Benefit Plan Subscriber ID Effective Phone Address Typ e / Group Dates MEDICARE ACO MEDICARE ACO [id number] 2021-Prese [address] [place] [facility] [place] [phone] MEDICARE MEDICARE A/B [id number] 2015-Prese [address] [place] [id number] [place] [id number] 2019-Prese [address] [place] [facility] [id number] Tim Mera Personal/Family Self 1950 [facility] [place] [address] Tim Mera Personal/Family Self 1950 [facility] [place] [address] Tim Mera Personal/Family Self 1950 [facility] [place] [address] Tim Mera Personal/Family Self 1950 [facility] [place] [address] Tim Mera Personal/Family Self 1950 [facility] [place] [address] Tim Mera Personal/Family Self 1950 [facility] [place] [address] Tim Mera Personal/Family Self 1950 [facility] [place] [address] Advance Directives For more information, please contact: [phone] Documents on File Type Date Recorded Patient Engraver Set Up Operator Explanati on Advance Directive Latest Code Status on File Code Status Date Activated Date Inactivated Comments Full Code 06/12/2017 17:51 06/16/2017 19:03 Reason for decision includes: Full code consistent with over all plan of care Who participated in the discussion? Not Discussed Full Code 05/21/2017 1:26 05/27/2017 16:51 Reason for decision includes: Full code consistent with over all plan of care Who participated in the discussion? Patient Full Code 04/30/2017 19:04 05/04/2017 20:19 Reason for decision includes: Full code consistent with over all plan of care Who participated in the discussion? Not Discussed Care Teams Rd Lab Technician Relationship Specialty Start Date End Date Katia Mccallum PA-C PCP - General 05/02/[address] [place] [id number]
--- OUTSIDE RECORDS SUMMARY | 2021-10-24 18:17 | XMS_ITS | Encounter Summary ---
:1950 Author Organization [facility] Address [address] [place] [address] Care Team Providers Name Role Phone Katia Mccallum PA-C Primary Care Provider [phone] Reason for Visit Reason Onset Date Comments Appointment Related 06/22/2020 Encounter Details Date Type Department Care Team Description 06/22/2020 Telephone [facility] Cherie Browne MD Appointment Related Cardiothoracic Surgery - [address] [place] [address], [address], [address] [place], [place] [address] [place] [address] [phone] (Wo rk) Social History Tobacco Use [...] on filedocumented in this encounter Care Teams Viscose Department Worker Relationship Specialty Start Date End Date Katia Mccallum PA-C PCP - General 05/02/[address] [place] [id number] documented as of this encounter
--- OUTSIDE RECORDS SUMMARY | 2021-10-24 18:17 | XMS_ITS | Encounter Summary ---
:1950 Author Organization [facility] Address [address] [place] [address] Care Team Providers Name Role Phone Katia Mccallum PA-C Primary Care Provider [phone] Reason for Visit Reason Onset Date Comments Coordination Of Care 04/19/2020 Returning Call 04/20/2020 Encounter Details Date Type Department Care Team Description 04/19/2020 Telephone [facility] Yariel Rosenberg MD Coordination Of Care; Cardiology - [employer] Returning Call [address] [phone] Social History Tobacco Use Types [...] Adam Ordoñez - 04/20/2020 1508 EST Patient's case management coordinator returning call to Belinda. Please call. elephone Encounter - Belinda Falk RN - 04/20/2020 1457 EST Call placed to case management coordinator regarding patient unable to reach by phone. Message left on voice mail to call office back with call back number [phone]. Telephone Encounter - Conner Mccall - 04/19/2020 1118 EST Reason for Call: Coordination Of Care Summary/Symptoms: Maru patients Bath Tester reaching out to get more information on the appt Dr Rosenberg talked about for patient's pacemaker. Dr Rosenberg was going to have an appt for the patient with another cardio surgeon Maru states. Maru was going to call [facility] but stated they always ask Chaitanya. Please call back to discuss Conner Mccall 04/19/2020 11:19 documented in this encounter Plan of Treatment Not on filedocumented as of this encounter Visit Diagnoses Not on filedocumented in this encounter Care Teams Rope Cleaner Relationship Specialty Start Date End Date Katia Mccallum PA-C PCP - General 05/02/[address] [place] [address] documented as of this encounter
--- OUTSIDE RECORDS SUMMARY | 2021-10-24 18:17 | XMS_ITS | Encounter Summary ---
:1950 Author Organization [facility] Address [address] [place] [address] Care Team Providers Name Role Phone Katia Mccallum PA-C Primary Care Provider [phone] Encounter Details Date Type Department Care Team Description 08/18/2020 Results Only [facility] - Junior Ruiz [facility] [address] [place] [address] [phone] (Wo rk) Social History Tobacco Use Types [...] EDT) Sodium 138 136 - 145 mEq/L [facility] Potassium 3.3 (L) 3.5 - 5.1 mEq/L [facility] Chloride 101 96 - 107 mEq/L [facility] CO2 Total 31.3 21 - 32 mEq/L [facility] Anion Gap 5.7 mEq/L [facility] BUN 9 7 - 25 mg/dl [facility] Creatinine 0.66 (L) 0.70 - 1.30 [facility] mg/dl [facility]ENTER LAB Estimated GFR >60 >60 [facility] Comment: CENTER LAB EGFR UNITS: mL/min/1.73 m 2 CKD-EPI Equation used to calculate. Glucose 86 74 - 106 mg/dl [facility] Calcium 8.0 (L) 8.5 - 10.1 [facility] mg/dl [place] [facility] Specimen Performing Organization Address City/State/ZIP Code Phon e Number [facility] [address] [place] [address] (ABNORMAL) COMPLETE BLOOD COUNT (08/18/2020 5:15 EDT) Pathologist Sig nature WBC 5.2 4.0 - 10.5 10 [facility] 3/uL [facility] RBC 2.68 (L) 4.70 - 6.00 10 [facility] 6/uL [facility] Hemoglobin 9.4 (L) 13.5 - 18.0 [facility] g/dL [facility] LAB HCT 27.5 (L) 42.0 - 52.0 % [facility] MCV 102.6 (H) 78 - 100 fL [facility] MCH 35.1 (H) 27 - 31 pg [facility] MCHC 34.2 32 - 37 g/dL [facility] RDW-CV - PMC 15.2 (H) <14.7 % [facility] PLATELET COUNT - [facility] 233 150 - 450 10 [place] [address]/[facility] LAB MPV 10.3 9.2 - 12.0 [facility] LAB Specimen Performing Organization Address City/State/ZIP Code Phon e Number [facility] [address] [place] [address] documented in this encounter Visit Diagnoses Not on filedocumented in this encounter Care Teams Electrical Controls Designer Relationship Specialty Start Date End Date Katia Mccallum PA-C PCP - General 05/02/[address] [place] [id number] documented as of this encounter
--- OUTSIDE RECORDS SUMMARY | 2021-10-24 18:17 | XMS_ITS | Encounter Summary ---
:1950 Author Organization [facility] Address [address] [place] [address] Care Team Providers Name Role Phone Katia Mccallum PA-C Primary Care Provider [phone] Reason for Visit Reason Onset Date Comments Other 06/21/2020 patient wants to can xin surgery Encounter Details Date Type Department Care Team Description 06/21/2020 Telephone [facility] Cherie Browne MD Other (patient wants Cardiothoracic Surgery - [address] to cancel surgery) [facility], [address], [address] [place], [place] [address] [place] [address] [phone] (Wo rk) Social History Tobacco Use [...] Telephone Encounter - Cat Sutherland RN - 06/22/2020 1101 EDT Cardiothoracic Surgery Update I spoke with the patient and family member that he lives with (Whitney). Pt was called by his Fitter Tacker on 06/21 x 2 and finally Maru Villalobos the Fitter Tacker sent the State Police to his house per Maru to do a welfare check as he doesn't follow instructions or return calls per Maru. He didn't go for a covid test and the ride was set up for him by Maru Fitter Tacker and he cancelled it. He states he has pneumonia I know it. but per Maru and patient he refuses to go to the Hospital with a ride arranged or by ambulance. Pt verbalized understanding the surgery with Dr. Browne cancelled and he should follow closely with his Provider for his care and safety. He states I'm not going. I have informed Dr. Browne and our schedulers. elephone Encounter - Melania Dumas - 06/21/2020 1350 EDT Nila (Resaw Feeder) from [facility] calling to advise that patient wants to cancel surgery on Friday06/26/2020 as he believes he has pneumonia. Per Nila, patient has not been seen by anyone and declined calling ambulance to take him to ED. documented in this encounter Plan of Treatment Not on filedocumented as of this encounter Visit Diagnoses Not on filedocumented in this encounter Care Teams Pebble Mill Operator Relationship Specialty Start Date End Date Katia Mccallum PA-C PCP - General 05/02/[address] [place] [address] documented as of this encounter
--- OUTSIDE RECORDS SUMMARY | 2021-10-24 18:17 | XMS_ITS | Encounter Summary ---
:1950 Author Organization [facility] Address [address] [place] [address] Care Team Providers Name Role Phone Katia Mccallum PA-C Primary Care Provider [phone] Encounter Details Date Type Department Care Team Description 01/14/[address] [facility] - [address], Provider, [place] [facility] [address] [place], [place] [id number] Social History Tobacco Use Types Packs/Day Years [...] EST) Pro Time 11.2 9.0 - 12.3 [facility] SEC CENTER LAB PROTHROMBIN TIME 1.1 0.8 - 1.2 [facility] WITH INR - PMC Comment: RATIO CENTER [...] PT is prolonged for other reasons. Specimen [facility] - 01/14/2020 6 :37 EST Sample [...] Organization Address City/State/ZIP Code Phon e Number [facility] [address] [place] [address] (ABNORMAL) SODIUM (01/14/2020 2:07 EST) Pathologist Sig nature Sodium 121 (L) 136 - 145 mEq/L [facility] Specimen [facility] - 01/14/2020 2 :41 EST Sample collected from saline lock with discard per protocol by non-laboratory staff. Performing Organization Address City/State/ZIP Code Phon e Number [facility] [address] [place] [address] documented in this encounter Visit Diagnoses Not on filedocumented in this encounter Care Teams Engineering Mechanic Relationship Specialty Start Date End Date Katia Mccallum PA-C PCP - General 05/02/[address] [place] [address] documented as of this encounter
--- OUTSIDE RECORDS SUMMARY | 2021-10-24 18:17 | XMS_ITS | Encounter Summary ---
:[address] [facility] Address [address] [place] [address] Care Team Providers Name Role Phone Katia Mccallum PA-C Primary Care Provider [phone] Encounter Details Date Type Department Care Team Description 08/16/2020 Results Only [facility] - Junior Ruiz [facility] [address] [place] [phone] (Wo rk) Social History Tobacco Use Types [...] EDT) Sodium 137 136 - 145 mEq/L [facility] Potassium 3.5 3.5 - 5.1 mEq/L [facility] Chloride 103 96 - 107 mEq/L [facility] CO2 Total 28.1 21 - 32 mEq/L [facility] Anion Gap 5.9 mEq/L [facility] BUN 14 7 - 25 mg/dl [facility] Creatinine 0.57 (L) 0.70 - 1.30 [facility] mg/dl [place] [facility] Estimated GFR >60 >60 [facility] Comment: CENTER LAB EGFR UNITS: mL/min/1.73 m 2 CKD-EPI Equation used to calculate. Glucose 86 74 - 106 mg/dl [facility] Calcium 8.0 (L) 8.5 - 10.1 [facility] mg/dl [place] [facility] Specimen Performing Organization Address City/State/ZIP Code Phon e Number [facility] [address] [place] [address] (ABNORMAL) COMPLETE BLOOD COUNT (08/16/2020 5:20 EDT) Pathologist Sig nature WBC 5.0 4.0 - 10.5 10 [facility] 3/uL [facility] RBC 2.65 (L) 4.70 - 6.00 10 [facility] 6/uL [facility] Hemoglobin 9.3 (L) 13.5 - 18.0 [facility] g/dL [facility] HCT 27.3 (L) 42.0 - 52.0 % [facility] MCV 103.0 (H) 78 - 100 fL [facility] MCH 35.1 (H) 27 - 31 pg [facility] MCHC 34.1 32 - 37 g/dL [facility] RDW-CV - PMC 15.1 (H) <14.7 % [facility] PLATELET COUNT - [facility] 202 150 - 450 10 [place] [address]/[facility] LAB MPV 10.1 9.2 - 12.0 [facility] LAB Specimen Performing Organization Address City/State/ZIP Code Phon e Number [facility] [address] [place] [address] documented in this encounter Visit Diagnoses Not on filedocumented in this encounter Care Teams Hand Spring Repairer Helper Relationship Specialty Start Date End Date Katia Mccallum PA-C PCP - General 05/02/[address] [place] [address] documented as of this encounter
--- OUTSIDE RECORDS SUMMARY | 2021-10-24 18:17 | XMS_ITS | Encounter Summary ---
:1950 Author Organization [facility] Address [address] [place] [address] Care Team Providers Name Role Phone Katia Mccallum PA-C Primary Care Provider [phone] Encounter Details Date Type Department Care Team Description 08/13/2020 Lab Requisition [facility] Outr Resulting Lab, Pathology & Laboratory Provider [facility] [address] [place] [id number] Social History Tobacco Use Types Packs/Day Years [...] Sig nature Parasite No ova and parasites [facility] seen. LABORATORY SERVICES Specimen Feces - Specimen from rectum (specimen) Narrative [facility]ORATORY SERVICES - 08/14/2020 11:44 EDT (If Cryptosporidium, Cyclospora, or Micr osporidium are suspected, specific tests must be requested.) Single negative specimen does not rule out the possibility of a parasitic infection. Performing Organization Address City/State/ZIP Code Phon e Number [facility] LABORATORY [address] [place] [address] SERVICES documented in this encounter Visit Diagnoses Not on filedocumented in this encounter Care Teams Geospatial Extractor Analysis Relationship Specialty Start Date End Date Katia Mccallum PA-C PCP - General 05/02/[address] [facility] [place] [place] [address] documented as of this encounter
--- OUTSIDE RECORDS SUMMARY | 2021-10-24 18:17 | XMS_ITS | Encounter Summary ---
:1950 Author Organization [facility] Address [address] [place] [address] Care Team Providers Name Role Phone Katia [...] on filedocumented in this encounter Care Teams Cushion Sewer Relationship Specialty Start Date End Date Katia Mccallum PA-C PCP - General 05/02/[address] [place] [address] documented as of this encounter
--- OUTSIDE RECORDS SUMMARY | 2021-10-24 18:17 | XMS_ITS | Encounter Summary ---
:1950 Author Organization [facility] Address [address] [place] [address] Care Team Providers Name Role Phone Katia Mccallum PA-C Primary Care Provider [phone] Encounter Details Date Type Department Care Team Description 01/15/2020 Results Only [facility]- Jayesh Baldwin, [address] [place] [phone] (Wo rk) Social History Tobacco Use [...] Diagnosis Comme nts HEPATIC & CMP Routine 01/15/2020 6:16 EST Results for this COMBO,FASTING - PMC procedur e are in the results section. COMPLETE BLOOD Routine 01/15/2020 6:16 EST Result s for this COUNT procedure are i n the results section. MAGNESIUM Routine 01/15/2020 6:16 EST Results for this procedure are i n the results section. documented in this encounter Results (ABNORMAL) MAGNESIUM (01/15/2020 6:16 EST) Pathologist Sig nature Magnesium 1.6 (L) 1.8 - 2.4 mg/dl [facility] Specimen Performing Organization Address City/State/ZIP Code Phon e Number [facility] [address] [place] [address] (ABNORMAL) HEPATIC & CMP COMBO,FASTING - PMC (01/15/2020 6:16 EST) Sodium 125 (L) 136 - 145 [facility] mEq/L [facility] Potassium 3.8 3.5 - 5.1 [facility] mEq/L [facility] Chloride 93 (L) 96 - 107 [facility] mEq/L [facility] CO2 Total 30.1 21 - 32 mEq/L [facility] Anion Gap 3.9 mEq/L [facility] BUN 10 7 - 25 mg/dl [facility] Creatinine 0.67 (L) 0.70 - 1.30 [facility] mg/dl [facility] Estimated GFR >60 >60 [facility] Comment: CENTER LAB EGFR UNITS: mL/min/1.73 m 2 CKD-EPI Equation used to calculate. Glucose 92 74 - 106 [facility] mg/dl [facility] Calcium 8.2 (L) 8.5 - 10.1 [facility] mg/dl [facility] CALCIUM,CORRECTED - 9.2 8.5 - 10.5 [facility] PMC mg/dl [facility] BILIRUBIN - PMC 0.60 0.00 - 1.00 [facility] mg/dl [facility] AST 46 (H) 15 - 37 U/L [facility] ALT 33 16 - 63 U/L [facility] Alkaline Phosphatase 82 46 - 116 U/L [facility] Total Protein 7.0 6.4 - 8.2 [facility] g/dl [facility] Albumin 2.8 (L) 3.4 - 5.0 [facility] g/dl [facility] GLOBULIN - PMC 4.2 g/dl [facility] ALBUMIN/GLOBULIN 0.6 [facility] RATIO - [facility] LAB Specimen Performing Organization Address City/[facility] Phon e Number [facility] [address] [place] [address] (ABNORMAL) COMPLETE BLOOD COUNT (01/15/2020 6:16 EST) Pathologist Sig nature WBC 4.4 4.0 - 10.5 10 [facility] 3/uL [facility] RBC 3.26 (L) 4.70 - 6.00 10 [facility] 6/uL [facility] Hemoglobin 11.3 (L) 13.5 - 18.0 [facility] g/dL [facility] HCT 31.2 (L) 42.0 - 52.0 % [facility] MCV 95.7 78 - 100 fL [facility] MCH 34.7 (H) 27 - 31 pg [facility] MCHC 36.2 (H) 32 - 36 g/dL [facility] RDW-CV - [facility] 12.8 11.0 - 14.8 % [facility] PLATELET COUNT - [facility] 163 150 - [address] LAB Specimen Performing Organization Address City/[facility] [email or web address] Code Phon e Number [facility] [address] [place] [address] documented in this encounter Visit Diagnoses Not on filedocumented in this encounter Care Teams Basket Hand Braider Relationship Specialty Start Date End Date Katia Mccallum PA-C PCP - General 05/02/[address] [place] [address] documented as of this encounter
--- OUTSIDE RECORDS SUMMARY | 2021-10-24 18:17 | XMS_ITS | Encounter Summary ---
:1950 Author Organization [facility] Address [address] [place] [address] Care Team Providers Name Role Phone Katia Mccallum PA-C Primary Care Provider [phone] Encounter Details Date Type Department Care Team Description 01/16/2020 Results Only [facility] - [address], Provider, [place] [facility] Lab [facility] [address] [place], [place] [id number] Social History Tobacco Use Types Packs/Day Years [...] Sodium 129 (L) 136 - 145 mEq/L [facility] Potassium 3.8 3.5 - 5.1 mEq/L [facility] Chloride 95 (L) 96 - 107 mEq/L [facility] CO2 Total 27.5 21 - 32 mEq/L [facility] Anion Gap 7.5 mEq/L [facility] BUN 10 7 - 25 mg/dl [facility] Creatinine 0.64 (L) 0.70 - 1.30 [facility] mg/dl [place] [facility] Estimated GFR >60 >60 [facility] Comment: CENTER LAB EGFR UNITS: mL/min/1.73 m 2 CKD-EPI Equation used to calculate. Glucose 91 74 - 106 mg/dl [facility] Calcium 8.4 (L) 8.5 - 10.1 [facility] mg/dl [place] [facility] Specimen Performing Organization Address City/State/ZIP Code Phon e Number [facility] [address] [place] [address] documented in this encounter Visit Diagnoses Not on filedocumented in this encounter Care Teams Human Resources Project Coordinator Relationship Specialty Start Date End Date Katia Mccallum PA-C PCP - General 05/02/[address] [place] [address] documented as of this encounter
--- OUTSIDE RECORDS SUMMARY | 2021-10-24 18:17 | XMS_ITS | Encounter Summary ---
:[address] [facility] Address [address] [place] [address] Care Team Providers Name Role Phone Katia Mccallum PA-C Primary Care Provider [phone] Encounter Details Date Type Department Care Team Description 08/12/2020 Results Only [facility] - [facility] Geetha Valerio, Rheumatology [address] [facility] [address] [place] [address] [address] [place] [address] (Wo rk) Social History Tobacco Use [...] Date/Time Associated Diagnosis Comme nts MAGNESIUM Routine 08/12/2020 6:48 EDT Results for this procedure are i n the results section. HEPATIC FUNCTION Routine 08/12/2020 6:48 EDT Resu lts for this PANEL (ALB,ALK procedure are in PHOS,ALT,AST,DBIL,T the resu lts OT BOSSMAN,TOT PROT) section. BASIC METABOLIC Routine 08/12/2020 6:48 EDT Resul ts for this PANEL (BMP) procedure are i n the results section. documented in this encounter Results (ABNORMAL) MAGNESIUM (08/12/2020 6:48 EDT) Pathologist Sig nature Magnesium 1.4 (L) 1.8 - 2.4 mg/dl [facility] Specimen Performing Organization Address City/State/ZIP Code Phon e Number [facility] [address] [place] [address] (ABNORMAL) BASIC METABOLIC PANEL (BMP) (08/12/2020 6:48 EDT) Sodium 135 (L) 136 - 145 mEq/L [facility] Potassium 3.2 (L) 3.5 - 5.1 mEq/L [facility] Chloride 101 96 - 107 mEq/L [facility] CO2 Total 28.8 21 - 32 mEq/L [facility] Anion Gap 4.2 mEq/L [facility] BUN 5 (L) 7 - 25 mg/dl [facility] Creatinine 0.50 (L) 0.70 - 1.30 [facility] mg/dl [facility] LAB Estimated GFR >60 >60 [facility] Comment: CENTER LAB EGFR UNITS: mL/min/1.73 m 2 CKD-EPI Equation used to calculate. Glucose 102 74 - 106 mg/dl [facility] Calcium 7.9 (L) 8.5 - 10.1 [facility] mg/dl [facility] Specimen Performing Organization Address [facility]/ZIP Code Phon e Number [facility] [address] [place] [address] (ABNORMAL) HEPATIC FUNCTION PANEL (ALB,ALK PHOS,ALT,AST,DBIL,TOT BOSSMAN,TOT PROT) (08/12/2020 6:48 EDT) Pathologist Sig nature BILIRUBIN - PMC 0.50 0.00 - 1.00 [facility] mg/dl [facility] DIRECT BILIRUBIN - PMC 0.20 0.00 - 0.30 [facility] mg/dl [facility] INDIRECT BILIRUBIN - 0.30 0.00 - 0.80 [facility] mg/dl [facility] AST 31 15 - 37 U/L [facility] ALT 25 16 - 63 U/L [facility] Alkaline Phosphatase 99 46 - 116 U/L [facility] Total Protein 5.9 (L) 6.4 - 8.2 g/dl [facility] Albumin 2.2 (L) 3.4 - 5.0 g/dl [facility] GLOBULIN - [facility] 3.7 g/dl [facility] ALBUMIN/GLOBULIN RATIO 0.5 [facility] Specimen Performing Organization Address City/[facility] Code Phon e Number [facility] [address] [place] [address] documented in this encounter Visit Diagnoses Not on filedocumented in this encounter Care Teams Steam Oven Operator Relationship Specialty Start Date End Date Katia Mccallum PA-C PCP - General 05/02/[address] [place] [address] documented as of this encounter
--- OUTSIDE RECORDS SUMMARY | 2021-10-24 18:17 | XMS_ITS | Encounter Summary ---
:1950 Author Organization [facility] Address [address] [place] [address] Care Team Providers Name Role Phone Katia Mccallum PA-C Primary Care Provider [phone] Reason for Visit Reason Onset Date Comments Appointment Related 06/16/2020 Encounter Details Date Type Department Care Team Description 06/16/[address] [facility] Ghazala Sutherland RN Appo intment Related Cardiothoracic Surgery - [address] [address] Social History Tobacco Use Types Packs/Day Years [...] to be sure and connect with his Locker Plant Attendant at PCP office to get his COVID test 3-4 days prior to surgery. Surgery is on 06/26. GHAZALA SUTHERLAND RN documented in this encounter Plan of Treatment Not on filedocumented as of this encounter Visit Diagnoses Not on filedocumented in this encounter Care Teams Supervisor Component Assembler Relationship Specialty Start Date End Date Katia Mccallum PA-C PCP - General 05/02/17 [address] [place] [address] documented as of this encounter
--- OUTSIDE RECORDS SUMMARY | 2021-10-24 18:17 | XMS_ITS | Encounter Summary ---
:1950 Author Organization [facility] Address [address] [place] [address] Care Team Providers Name Role Phone Katia Mccallum PA-C Primary Care Provider [phone] Reason for Visit Reason Onset Date Comments Appointment Related 06/06/2020 Encounter Details Date Type Department Care Team Description 06/06/2020 Telephone [facility] Cherie Browne MD Appointment Related Cardiothoracic Surgery - [address] [place] [address], [address], [address] [place], [place] [address] [place] [address] [phone] (Wo rk) Social History Tobacco Use [...] Telephone Encounter - Alma Dhillon - 06/06/2020 6543 EDT At her request, I have telephoned Nurse Manufacturing Machine Operator, Nila, at [facility] to advise of this patient's surgery date. [...] on filedocumented in this encounter Care Teams Progress Developer Relationship Specialty Start Date End Date Katia Mccallum PA-C PCP - General 05/02/[address] [place] [address] documented as of this encounter
--- OUTSIDE RECORDS SUMMARY | 2021-10-24 18:17 | XMS_ITS | Encounter Summary ---
:1950 Author Organization [facility] Address [address] [place] [address] Care Team Providers Name Role Phone Katia Mccallum PA-C Primary Care Provider [phone] Reason for Visit Reason Onset Date Comments Other 05/16/2020 EKG results Encounter Details Date Type Department Care Team Description 05/16/2020 Telephone [facility] Cat Sutherland RN Othe r (EKG results) Cardiothoracic Surgery - [address] [address] Social History Tobacco Use Types Packs/Day Years [...] Patient had an EKG in January 2020. [facility] to fax report to [phone]. EKG in [facility] from [facility]. I have routed our PA Salvador Roca to see if he wants to repeat on DOSA. documented in this encounter Plan of Treatment Not on filedocumented as of this encounter Visit Diagnoses Not on filedocumented in this encounter Care Teams [employer] Relationship Specialty Start Date End Date Katia Mccallum PA-C PCP - General 05/02/[address] [place] [address] documented as of this encounter
--- OUTSIDE RECORDS SUMMARY | 2021-10-24 18:17 | XMS_ITS | Encounter Summary ---
:1950 Author Organization [facility] Address [address] [place] [address] Care Team Providers Name Role Phone Katia Mccallum PA-C Primary Care Provider [phone] Encounter Details Date Type Department Care Team Description 08/08/2020 Results Only Imaging [facility] - Justin Christy [facility] MD Hallie Radiology Results [address] [place] [address] [phone] (Wo rk) Social History Tobacco Use Types [...] 2 VIEWS (08/08/2020 15:36 EDT) Specimen Narrative [facility] RADIOLOGY - 2020 15:36 EDT ?[facility]: [facility] ?[address] ?[place] [address] ?Diagnostic Imaging Report ? Signed ? Patient Name:DAVID FARFAN ? Date of :1950 ?MR Number:[id number] ? Age:69 ?Sex:M ? Category: CR ?Date [...] regarding this report , please contact the [facility] at [phone] ? Dictated by: Temo Son MD ?D/ 15 ?? 36 ?? Transcribed by: SSCOURTNEY ?D/T: ? E-Signed by: Temo Son MD ?D/ 19 ?? 38 ?? Procedure Note Temo Son MD - [facility]08/[facility] [address] [address] Diagnostic Imaging Report Signed Patient Name:DAVID FARFAN r:[id number] Date of :1950 MR Number:[id number] Age:69 Sex:M Category: CR Date of Exam:08/08/20 [...] regarding this report , please contact the [facility] at [phone] Dictated by: Temo Son MD D/T: 08/08 15 36 Transcribed by: DEBRA D/T: E-Signed by: Temo Son MD D/T: 08/08 19 38 Performing Organization Address City/State/ZIP Code Phon e Number [facility] RADIOLOGY CT ABDOMEN PELVIS W CONTRAST (08/08/2020 15:36 EDT) Specimen Narrative [facility] RADIOLOGY - 2020 15:36 EDT ?[facility]: [facility] ?[address] ?[place], [place] [address] ?Diagnostic Imaging Report ? Signed ? Patient Name:ADOLPH,DAVID F ? Date of :1950 ?MR Number:[id number] ? Age:69 ?Sex:M ? Category: CT ?Date [...] please contact the [facility] at [phone] ? Dictated by: Temo Son MD ?D/ 15 ?? 36 ?? Transcribed by: DEBRA ?D/T: ? E-Signed by: Temo Son MD ?D/ 19 ?? 36 ?? Procedure Note Temo Son MD - 08/08/2020 [facility] [place] [id number] Diagnostic Imaging Report Signed Patient Name:DAVID FARFAN r:[id number] Date of :1950 MR Number:[id number] Age:69 Sex:M Category: CT Date of Exam:08/08/20 Procedure: CT: Abd Pelvis; wit cntrst A ccession: [id number] Ordering Physician: oTny Christy MD Patient CC: Katia Mccallum Joseph [...] regarding this report , please contact the [facility] at [phone] Dictated by: Temo Son MD D/T: 08/08 15 36 Transcribed by: DEBRA D/T: E-Signed by: Temo Son MD D/T: 08/08 36 Performing Organization Address City/State/ZIP Code Phon e Number [facility] RADIOLOGY documented in this encounter Visit Diagnoses Not on filedocumented in this encounter Care Teams Medical Laboratory Technicians Relationship Specialty Start Date End Date Katia Mccallum PA-C PCP - General 05/02/[address] [place] [address] documented as of this encounter
--- OUTSIDE RECORDS SUMMARY | 2021-10-24 18:17 | XMS_ITS | Encounter Summary ---
:1950 Author Organization [facility] Address [address] [place] [address] Care Team Providers Name Role Phone Katia Mccallum PA-C Primary Care Provider [phone] Reason for Visit Reason Onset Date Comments Other 06/07/[address] Mihir rama WINST[place] Other 06/08/2020 mailed pre-op instru ctions to patient Encounter Details Date Type Department Care Team Description 06/07/2020 Telephone [facility] Cherie Browne MD Other (questions for Cardiothoracic Surgery - [address] [facility] [address] Surgery RN); Other Main [facility] (mailed pre-op [address] [facility] [place], Level 5 instructions to [place], [place] [address] [place] [address] patient) [phone] (Wo rk) Social History Tobacco Use [...] EDT Pre-op instructions mailed to patient at: [address] [place] [address] Address updated in [facility]. elephone Encounter - Cat Sutherland RN - 06/07/2020 1526 EDT Called and left message for Maru Villalobos RN at [place] [facility] Community Program Assistant to get correct address (mailing address) for patient and then have changed in Registration as he doesn't live in [place] anymore. She was going to call us [...] the Division of Cardiothoracic Surgery at the [facility]. We look forward to making your stay [...] located near the Main Entrance of the [facility] at the [facility] Main [place]. Prior to surgery, you will be scheduled for an anesthesia pre-screen telephone call with the Pre-Operative Department ??? Your telephone call has been scheduled for: To Be Announced between To Be Announced and To Be Announced ??? If you do not receive an appointment for the pre-screen call within two days of this appointment, please contact our office at [phone]. We have included a local lodging list [...] days prior to your surgery. Stop Saw [place] 14 days prior to surgery. ??? Acetaminophen [...] CHANGED, CALL OUR OFFICE RIGHT AWAY AT [phone]) ??? Continue to take all of your [...] clothing. ??? Do not wear any nail mohawk, makeup, powder, lotion, deodorant or jewelry of [...] timely results. The Patient Access Center at [facility] will contact you with an appointment [...] APPOINTMENT CONTACT THE PATIENT ACCESS CENTER AT [phone]. ??? While waiting for your surgery, you [...] to the Surgeon's office on Level 5 [facility] Outpatient office. Note: If for some reason [...] listed below. The Division of Cardiothoracic Surgery [address] [place] [address] (Toll Free) MD Geovanni Toure MD Marek Polomsky, MD Chris Rokkas, MD /josh & ep 03/2020 elephone Encounter - Cat Sutherland RN - 06/07/[address] Surgery [place] Maru Villalobos hogshead stripper at [facility] [phone] EXT 7 states patient's son and and is not on Adv Directive now. Questions call Maru Villalobos. Pre-Op Instructions mailed to patient and faxed to Maru [phone]. She will review with the patient and I will as well. Check in time for surgery on 06/26 has not been confirmed yet per our Test Baker. 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 elephone Encounter - Melania Dumas - 06/07/2020 1013 EDT Maru from [place] calling with questions for CT Surgery RN. Requesting return call to [phone], extension 7. documented in this encounter Plan of Treatment Not on filedocumented as of this encounter Visit Diagnoses Diagnosis Encounter for preoperative screening lab oratory testing for COVID-19 virus - Primary documented in this encounter Care Teams Campus Safety Officer Relationship Specialty Start Date End Date Katia Mccallum PA-C PCP - General 05/02/[address] [place] [address] documented as of this encounter
--- OUTSIDE RECORDS SUMMARY | 2021-10-24 18:17 | XMS_ITS | Encounter Summary ---
:1950 Author Organization [facility] Address [address] [place] [address] Care Team Providers Name Role Phone Katia Mccallum PA-C Primary Care Provider [phone] Encounter Details Date Type Department Care Team Description 01/14/2020 Results Only [facility]- Jayesh Baldwin, [address] [place] [phone] (Wo rk) Social History Tobacco Use [...] Sodium 124 (L) 136 - 145 mEq/L [facility] Specimen Performing Organization Address [facility] Phon [facility] [address] [place] [address] (ABNORMAL) SODIUM (01/14/2020 14:55 EST) Pathologist Sig nature Sodium 125 (L) 136 - 145 mEq/L [facility] Specimen Performing Organization Address [facility] [address] [place] [address] (ABNORMAL) COMPLETE BLOOD COUNT (01/14/2020 5:30 EST) Pathologist Sig nature WBC 5.2 4.0 - 10.5 10 [facility] 3[facility] RBC 3.29 (L) 4.70 - 6.00 10 [facility] 6/[facility] Hemoglobin 11.5 (L) 13.5 - 18.0 [facility] g/dL [facility]ENTER LAB HCT 31.5 (L) 42.0 - 52.0 % [facility] MCV 95.7 78 - 100 fL [facility] MCH 35.0 (H) 27 - 31 pg [facility] MCHC 36.5 (H) 32 - 36 g/dL [facility] RDW-CV - PMC 13.1 11.0 - 14.8 % [facility] PLATELET COUNT - [facility] 156 150 - [address] LAB Specimen Narrative [facility] - 01/14/2020 6 :37 EST Sample [...] Standards H3-A5, page 21) Performing Organization Address [facility]/ZIP Code Phon e Number [facility] [address] [place] [address] MAGNESIUM (01/14/2020 5:30 EST) Pathologist Sig nature Magnesium 2.0 1.8 - 2.4 mg/dl [facility] Specimen Narrative [facility] - 01/14/2020 6 :33 EST Sample [...] Standards H3-A5, page 21) Performing Organization Address [facility] Phon e Number [facility] [address] [place] [address] (ABNORMAL) BASIC METABOLIC PANEL,RANDOM - PMC (01/14/2020 5:30 EST) Sodium 122 (L) 136 - 145 mEq/L [facility] Potassium 4.0 3.5 - 5.1 mEq/L [facility] Chloride 89 (L) 96 - 107 mEq/L [facility] CO2 Total 28.1 21 - 32 mEq/L [facility] Anion Gap 5.9 mEq/L [facility] BUN 11 7 - 25 mg/dl [facility] Creatinine 0.71 0.70 - 1.30 [facility] mg/dl [facility] LAB Estimated GFR >60 >60 [facility] Comment: [facility] EGFR UNITS: mL/min/1.73 m 2 CKD-EPI Equation used to calculate. Glucose 101 70 - 180 mg/dl [facility] Calcium 8.2 (L) 8.5 - 10.1 [facility] mg/dl [facility] Specimen Narrative [facility] - 01/14/2020 6 :33 EST Sample [...] Organization Address City/State/ZIP Code Phon e Number [facility] [address] [place] [address] documented in this encounter Visit Diagnoses Not on filedocumented in this encounter Care Teams Staker Surveying Relationship Specialty Start Date End Date Katia Mccallum PA-C PCP - General 05/02/[address] [place] [address] documented as of this encounter
--- OUTSIDE RECORDS SUMMARY | 2021-10-24 18:17 | XMS_ITS | Encounter Summary ---
:[address] [facility] Address [address] [place] [address] Care Team Providers Name Role Phone Katia Mccallum PA-C Primary Care Provider [phone] Encounter Details Date Type Department Care Team Description 08/09/2020 Results Only [facility] - Ester Valerio Imaging [facility] MD Annemarie Radiology Results [address] [place], [place] [address] [place] [address] [phone] (Wo rk) Social History Tobacco Use Types [...] 2 VIEWS (08/09/2020 8:33 EDT) Specimen Narrative [facility] RADIOLOGY - 2020 16:38 EDT ?[facility]: [facility] ?[address] ?[place] [address] ?Diagnostic Imaging Report ? Signed ? Patient Name:DAVID FARFAN ? Date of :1950 ?MR Number:[id number] ? Age:69 ?Sex:M ? Category: CR ?Date [...] Procedure Note Poncho Erickson MD - 08/09/2020 [facility] [address] [address] Diagnostic Imaging Report Signed Patient Name:DAVID FARFAN r:[id number] Date of :1950 MR Number:[id number] Age:69 Sex:M Category: CR Date of Exam:08/09/20 Procedure: CR: Abd; 2 Views Accession: [id number] Ordering Physician: Ester Valerio MD atient CC: [...] Code Phon e Number [facility] documented in this encounter Visit Diagnoses Not on filedocumented in this encounter Care Teams Auto Parts Counter Person Relationship Specialty Start Date End Date Katia Mccallum PA-C PCP - General 05/02/[address] [place] [id number] documented as of this encounter
--- OUTSIDE RECORDS SUMMARY | 2021-10-24 18:17 | XMS_ITS | Encounter Summary ---
:1950 Author Organization [facility] Address [address] [place] [address] Care Team Providers Name Role Phone Katia Mccallum PA-C Primary Care Provider [phone] Encounter Details Date Type Department Care Team Description 01/16/2020 Results Only Imaging [facility] - Keith Olmos [facility] MD Jarad Radiology Results [address] [place] [address] [phone] (Wo rk) Social History Tobacco Use Types [...] Priority Date/Time Associated Diagnosis Comme nts CT CHEST W CONTRAST 01/16/2020 13:19 Resu lts for this EST procedure are i n the results section. XR CHEST 2 VIEWS 01/16/2020 9:51 EST Resu lts for this procedure are i n the results section. documented in this encounter Results CT CHEST W CONTRAST (01/16/2020 13:19 EST) Specimen Narrative [facility] RAD[facility]OLOG[facility] - 2019 13:19 EST ?[facility]: [facility] ?[address] ?[place] [address] ?Diagnostic Imaging Report ? Signed ? Patient Name:DAVID FARFAN ? Date of :1950 ?MR Number:[id number] ? Age:69 ?Sex:M ? Category: CT ?Date of Exam:01/16/20 ? Procedure: CT: Thorax; with contrast ? Ordering Physician: Nickolas ([facility])Jayesh MD ?Patient ? CC: ?? Emeterio Wynne MD ?? Jayesh Olmos MD ([facility]) ?? Katia Mccallum ? PROCEDURE INFORMATION: ?? Exam: CT Chest With Contrast ?? Exam date and time: 01/16/2020 1:19 PM ?? Age: 69 years old ?? Clinical indication: Abnormal findings; Abnormal radiologic exam of lung or ?? chest; Prior surgery; Additional info: Loculated left pleural effusion ? TECHNIQUE: ?? Imaging protocol: Computed tomography o f the chest with intravenous contrast. ?? Radiation optimization: All CT scans [...] route: ?? INTRAVENOUS (IV); ? COMPARISON: ?? CR Chest; two view PA/Lat 01/16/2020 10 :57 AM ? FINDINGS: ?? Lungs: See Pleural space finding. ?? Pleural space: Loculated left pleural e ffusion posterolaterally measures 11.7 ?? by 5.4 cm in greatest transverse dimens ion. Adjacent atelectasis noted within ?? the left lower lobe. Pleural thickening and coarse calcification within the ?? right hemithorax. No right pleural effu nima. ?? Heart: Unremarkable. No cardiomegaly. N o pericardial effusion. ?? Aorta: Unremarkable. No aortic aneurysm . ?? Lymph nodes: Unremarkable. No enlarged lymph nodes. ? Bones/joints: Unremarkable. No acute fr acture. ?? Soft tissues: Unremarkable. ? IMPRESSION: ?? 1. Loculated left pleural effusion post erolaterally measures 11.7 by 5.4 cm in ?? greatest transverse dimension. Adjacent atelectasis noted within the left lower ?? lobe. ?? 2. Pleural thickening and coarse calcif ication within the right hemithorax. No ?? right pleural effusion. ? Report signed by: Brenda Dixon On ??15:28:37 ?? For any questions regarding this report , please contact the [facility] at [phone] ? Dictated by: Brenda Dixon MD ?D/ ?? 1319 ?? Transcribed by: SERGEY ?D/T: ? E-Signed by: Brenda Dixon MD ?D/ ?? 1528 ?? Procedure Note Brenda Dixon MD - [facility]01/[facility] [place] [id number] Diagnostic Imaging Report Signed Patient Name:DAVID FARFAN r:[id number] Date of :1950 MR Number:[id number] Age:69 Sex:M Category: CT Date of Exam:01/16/20 Procedure: CT: Thorax; with contrast Ac cession: [id number] Ordering Physician: Nickolas ([facility])Jayesh MD Patient CC: Emeterio Wynne MD, Michael MD ([facility]) Katia Mccallum PROCEDURE INFORMATION: Exam: CT Chest With Contrast Exam date and time: 01/16/2020 1:19 PM Age: 69 years old Clinical indication: Abnormal findings; Abnormal radiologic exam of lung or chest; Prior surgery; Additional info: Loculated left pleural effusion TECHNIQUE: Imaging protocol: Computed tomography o f the chest with intravenous contrast. Radiation optimization: All CT scans at this facility use at least one of these dose optimization techniques: automated exposure control; mA and/or kV adjustment per patient size (includes t argeted exams where dose is matched to clinical indication); or iterative soraida nstruction. Contrast material: ISOVUE 370; Contrast volume: 88 ml; Contrast route: INTRAVENOUS (IV); COMPARISON: CR Chest; two view PA/Lat 01/16/2020 10 :57 AM FINDINGS: Lungs: See Pleural space finding. Pleural space: Loculated left pleural e ffusion posterolaterally measures 11.7 by 5.4 cm in greatest transverse dimens ion. Adjacent atelectasis noted within the left lower lobe. Pleural thickening and coarse calcification within the right hemithorax. No right pleural effu nima. Heart: Unremarkable. No cardiomegaly. N o pericardial effusion. Aorta: Unremarkable. No aortic aneurysm . Lymph nodes: Unremarkable. No enlarged lymph nodes. Bones/joints: Unremarkable. No acute fr acture. Soft tissues: Unremarkable. IMPRESSION: 1. Loculated left pleural effusion post erolaterally measures 11.7 by 5.4 cm in greatest transverse dimension. Adjacent atelectasis noted within the left lower lobe. 2. Pleural thickening and coarse calcif ication within the right hemithorax. No right pleural effusion. Report signed by: Brenda Dixon On 15:28:37 For any questions regarding this report , please contact the [facility] at [phone] Dictated by: Brenda Dixon MD D/T: 1319 Transcribed by: SERGEY D/T: E-Signed by: Brenda Dixon MD D/T: 1528 Performing Organization Address City/State/ZIP Code Phon e Number [facility] XR CHEST 2 VIEWS (01/16/2020 9:51 EST) Specimen Narrative [facility] - 2019 9:51 EST ?[facility]: [facility] ?[address] ?[place] [address] ?Diagnostic Imaging Report ? Signed ? Patient Name:DAVID FARFAN ? Date of :1950 ?MR Number:[id number] ? Age:69 ?Sex:M ? Category: CR ?Date of Exam:01/16/20 ? Procedure: CR: Chest; Frontal/LAT views ? 923 ? Ordering Physician: Nickolas ([facility])Jayesh MD ?Patient ? CC: ?? Emeterio Wynne MD ?? Jayesh Olmos MD ([facility]) ?? Katia Mccallum ? PROCEDURE INFORMATION: ?? Exam: XR Chest, 2 Views ?? Exam date and time: 01/16/2020 9:51 AM ?? Age: 69 years old ?? Clinical indication: Dyspnea; Prior quita rama; Additional info: Dyspnea at rest ? TECHNIQUE: ?? Imaging protocol: XR of the chest ?? Views: 2 views. ? COMPARISON: ?? CR Chest; two view PA/Lat 12/12/2018 10 :58 PM ? FINDINGS: ?? Tubes, catheters and devices: Pacer sta ble. ? Lungs: Linear scarring upper right lung . ?? Pleural space: Stable small right pleur al effusion. Increased size moderate ?? left pleural effusion, at least partial ly loculated. Pleural thickening and ?? calcification on the right. ?? Heart/Mediastinum: Unremarkable. No car diomegaly. ?? Bones/joints: Unremarkable. ? IMPRESSION: ?? 1. Stable small right pleural effusion. ?? 2. Increased size moderate left pleural effusion, at least partially loculated. ?? 3. Pleural thickening and calcification on the right. ? Report signed by: Brenda Dixon On ??11:21:16 ?? For any questions regarding this report , please contact the [facility] at [phone] ? Dictated by: Brenda Dixon MD ?D/ ?? 0951 ?? Transcribed by: SERGEY ?D/T: ? E-Signed by: Brenad Dixon MD ?D/ ?? 1121 ?? Procedure Note Brenda Dixon MD - [facility]01/[facility] [address] [address] Diagnostic Imaging Report Signed Patient Name:DAVID FARFAN r:[id number] Date of :1950 MR Number:[id number] Age:69 Sex:M Category: CR Date of Exam:01/16/20 Procedure: CR: Chest; Frontal/LAT views 923 Ordering Physician: Nickolas ([facility])Jayesh MD Patient CC: Emeterio Wynne MD, Michael MD ([facility]) Katia Mccallum PROCEDURE INFORMATION: Exam: XR Chest, 2 Views Exam date and time: 01/16/2020 9:51 AM Age: 69 years old Clinical indication: Dyspnea; Prior quita rama; Additional info: Dyspnea at rest TECHNIQUE: Imaging protocol: XR of the chest Views: 2 views. COMPARISON: CR Chest; two view PA/Lat 12/12/2018 10 :58 PM FINDINGS: Tubes, catheters and devices: Pacer sta ble. Lungs: Linear scarring upper right lung . Pleural space: Stable small right pleur al effusion. Increased size moderate left pleural effusion, at least partial ly loculated. Pleural thickening and calcification on the right. Heart/Mediastinum: Unremarkable. No car diomegaly. Bones/joints: Unremarkable. IMPRESSION: 1. Stable small right pleural effusion. 2. Increased size moderate left pleural effusion, at least partially loculated. 3. Pleural thickening and calcification on the right. Report signed by: Brenda Dixon On 11:21:16 For any questions regarding this report , please contact the [facility] at [phone] Dictated by: Brenda Dixon MD D/T: 0951 Transcribed by: SERGEY D/T: E-Signed by: Brenda Dixon MD D/T: 1121 Performing Organization Address City/State/ZIP Code Phon e Number [facility] documented in this encounter Visit Diagnoses Not on filedocumented in this encounter Care Teams Energy Systems Engineer Relationship Specialty Start Date End Date Katia Mccallum PA-C PCP - General 05/02/17 [address] [place] [address] documented as of this encounter
--- OUTSIDE RECORDS SUMMARY | 2021-10-24 18:17 | XMS_ITS | Encounter Summary ---
:1950 Author Organization [facility] Address [address] [place] [address] Care Team Providers Name Role Phone Katia Mccallum PA-C Primary Care Provider [phone] Encounter Details Date Type Department Care Team Description 05/16/2020 Documentation Visit [facility] Ja Browne MD Infectious Disease - [address] [place] [address], [address], [address] [place], [place] [address] [place] [address] [phone] (Wo rk) Social History Tobacco Use [...] - 05/16/2020 0947 EDT Upon entering the [facility], patient answered yes to one [...] patient sent to appointment. Kem Thomson RN, [id number] documented in this encounter Plan of Treatment Not on filedocumented as of this encounter Visit Diagnoses Not on filedocumented in this encounter Care Teams [facility] Relationship Specialty Start Date End Date Katia Mccallum PA-C PCP - General 05/02/17 [address] [place] [address] documented as of this encounter
--- OUTSIDE RECORDS SUMMARY | 2021-10-24 18:17 | XMS_ITS | Encounter Summary ---
:1950 Author Organization [facility] Address [address] [place] [address] Care Team Providers Name Role Phone Katia Mccallum PA-C Primary Care Provider [phone] Reason for Visit Reason Onset Date Comments Confirmation 06/19/2020 Encounter Details Date Type Department Care Team Description 06/19/2020 Telephone [facility] Cardiothoracic Cat Sutherland RN Confirmation Surgery - [facility] s [address] [place] [address] Social History Tobacco Use Types Packs/Day Years [...] Telephone Encounter - Cat Sutherland RN - 06/20/[address] Surgery Update I left a message for the patient to call Maru Villalobos his Veneer Jointer Operator as she is arranging his rides for his COVID test and Surgery as well as his instructions for surgery. I also left Maru a message as well. elephone Encounter - Alma Dhillon - 06/20/2020 0938 EDT FYI---Patient's Postal Service Window Clerk calls to say she is not able to reach patient, but will continue to do so. elephone Encounter - Cat Sutherland RN - 06/19/[address] Surgery Update Pre-Op Nurse TISH Pastrana states patient doesn't have his pre-op instrucitons and was not understanding his medications. They were mailed to his new address by our [facility]. I did fax them previously as well to Maru Villalobos RN the patient's Veneer Jointer Operator at PCP office, which she did receive. Maru had stated previously that she is arranging a ride for the patient to his COVID test 3-4 days prior to surgery and also arranging ride to [facility] on the day of surgery and will assist in helping patient understand instructions. I have called Maru Villalobos RN and left her a message to call me back on 06/20. I will also call the patient on 06/20 New phone numbers for Maru: [phone] EXT#[phone], EXT#[phone] Or direct line = [phone] signed by Cat Sutherland RN at 06/19/2020 16:46 EDTdocumented in this encounter Plan of Treatment Not on filedocumented as of this encounter Visit Diagnoses Not on filedocumented in this encounter Care Teams Supervisor Park Workers Relationship Specialty Start Date End Date Katia Mccallum PA-C PCP - General 05/02/17 [address] [place] [address] documented as of this encounter
--- OUTSIDE RECORDS SUMMARY | 2021-10-24 18:17 | XMS_ITS | Encounter Summary ---
:1950 Author Organization [facility] Address [address] [place] [address] Care Team Providers Name Role Phone Katia Mccallum PA-C Primary Care Provider [phone] Reason for Visit Reason Onset Date Comments Appointment Related 02/07/2020 PA REQUEST Encounter Details Date Type Department Care Team Description 02/07/2020 Telephone [facility] - Shelley Reinoso MD Appointment Related ([facility] [address] REQUEST) Cardiology Clinic [place], [place] [address] [facility] [address] [place], [place] [address] Social History Tobacco Use Types Packs/Day Years [...] - 02/07/2020 1327 EST PA REQUEST ECHOCARDIOGRAM [id number] 02/29/20 DYSPNEA (R06.0) VITA LIVE THANK YOU! documented in this encounter Plan of Treatment Not on filedocumented as of this encounter Visit Diagnoses Not on filedocumented in this encounter Care Teams Hide Dropper Relationship Specialty Start Date End Date Katia Mccallum PA-C PCP - General 05/02/17 [address] [place] [address] documented as of this encounter
--- OUTSIDE RECORDS SUMMARY | 2021-10-24 18:17 | XMS_ITS | Encounter Summary ---
:1950 Author Organization [facility] Address [address] [place] [address] Care Team Providers Name Role Phone Katia Mccallum PA-C Primary Care Provider [phone] Reason for Visit Reason Onset Date Comments Pacemaker Problem 05/01/2020 Follow-up 05/03/2020 Encounter Details Date Type Department Care Team Description 05/01/2020 Telephone [facility] Yariel Rosenberg MD Pacemaker Problem; Cardiology - [address] Follow-up [address] [place], [place] [address] [place] [address] Social History Tobacco Use Types Packs/Day [...] this encounter Miscellaneous Notes Telephone Encounter - Milo Devi - 05/03/2020 0909 EST Caller states that pt and supervisor case loading do not understand what is going on with pt's care. From after-visit notes 04/12, it is clear to communications writer that provider intends for pt to see Dr. Browne at [employer] [facility].Caller, supervisor case loading, and pt are unaware of a referral being sent to [facility], and seem to think thatprovider is still following care. Please call pt and supervisor case loading directly to let them know exactly what the plan of care is. elephone Encounter - Brenda Bocanegra - 05/01/2020 1409 EST Spoke with Nila. We don't have much device information here as the patient is managed by [facility]. They are wanting follow up from Dr. Rosenberg regarding the next steps for pt's device care. Told them I wouldsee what I can do to help. elephone Encounter - Haja Pavon - 05/01/2020 1304 EST Nila @ [facility] called to follow-up on pacemaker issues (problems with wires) and relay that the patient has felt a pounding around their pacemaker the last two nights. Please call. documented in this encounter Plan of Treatment Not on filedocumented as of this encounter Visit Diagnoses Not on filedocumented in this encounter Care Teams Electron Gun Assembler Relationship Specialty Start Date End Date Katia Mccallum PA-C PCP - General 05/02/[address] [place] [address] documented as of this encounter
--- OUTSIDE RECORDS SUMMARY | 2021-10-24 18:17 | XMS_ITS | Encounter Summary ---
:1950 Author Organization [facility] Address [address] [place] [address] Care Team Providers Name Role Phone Katia Mccallum PA-C Primary Care Provider [phone] Reason for Visit Reason Comments Pacemaker Problem Encounter Details Date Type Department Care Team Description 04/12/2020 Office Visit [facility] Tony Rosenberg, Heart block AV third Cardiology - Nicolasa OAKES degree ([facility] [address] (Primary Dx) [place] [address] [address] [place] [address] Social History Tobacco Use Types [...] Rosenberg MD - 04/12/2020 1216 EST THE CARDIOLOGY - STELLA PROGRESS / FOLLOWUP NOTE - 04/12/2020 PROBLEM LIST 1. Third-degree heart block, status post dual chamber pacemaker insertion, complicated by pericardial effusion and need for 12-lead repositioning. 2. Hyponatremia. 3. RA lead failure. SUBJECTIVE: Mr Mera returns to the clinic at [facility] to discuss the issuessurrounding his pacemaker. [...] has had 2 recent hospitalizations, one at [facility] and the other at [facility] for treatment of hyponatremia. PHYSICAL EXAMINATION: [...] Tony Rosenberg MD / CD Dictation ID: [id number] cc: documented in this encounter Plan of Treatment Not on filedocumented as of this encounter Visit Diagnoses Diagnosis Heart block AV third degree (HCC-CMS) (H CC) - Primary Atrioventricular block, complete documented in this encounter Care Teams Carousel Attendant Relationship Specialty Start Date End Date Katia Mccallum PA-C PCP - General 05/02/[address] [place] [address] documented as of this encounter
--- OUTSIDE RECORDS SUMMARY | 2021-10-24 18:17 | XMS_ITS | Encounter Summary ---
:[address] [facility] Address [address] [place] [address] Care Team Providers Name Role Phone Katia Mccallum PA-C Primary Care Provider [phone] Encounter Details Date Type Department Care Team Description 08/09/2020 Results Only [facility] Virginia Quintana MD Dermatology - [facility] [address] [place], [place] [address] [address] [place], [place] [address] [phone] Social History Tobacco Use Types Packs/Day Years [...] EDT) Sodium 128 (L) 136 - 145 [facility] mEq/L [facility] Potassium 3.3 (L) 3.5 - 5.1 [facility] mEq/L [facility] Chloride 90 (L) 96 - 107 [facility] mEq/L [facility] CO2 Total 27.4 21 - 32 mEq/L [facility] Anion Gap 10.6 mEq/L [facility] BUN 11 7 - 25 mg/dl [facility] Creatinine 0.71 0.70 - 1.30 [facility] mg/dl [facility] Estimated GFR >60 >60 [facility] Comment: [facility] EGFR UNITS: mL/min/1.73 m 2 CKD-EPI Equation used to calculate. Glucose 117 (H) 74 - 106 [facility] mg/dl [facility] Calcium 8.3 (L) 8.5 - 10.1 [facility] mg/dl [facility] CALCIUM,CORRECTED - 9.4 8.5 - 10.5 [facility] PMC mg/dl [facility] BILIRUBIN - PMC 1.30 (H) 0.00 - 1.00 [facility] mg/dl [facility] AST 62 (H) 15 - 37 U/L [facility] ALT 46 16 - 63 U/L [facility] Alkaline Phosphatase 114 46 - 116 U/L [facility] Total Protein 6.7 6.4 - 8.2 [facility] g/dl [facility] Albumin 2.6 (L) 3.4 - 5.0 [facility] g/dl [facility] GLOBULIN - [facility] 4.1 g/dl [facility] ALBUMIN/GLOBULIN 0.6 [facility] RATIO [facility] Specimen Performing Organization Address City/State/ZIP Code Phon e Number [facility] [address] [place] [address] (ABNORMAL) COMPLETE BLOOD COUNT AND DIFFERENTIAL (08/09/2020 5:35 EDT) WBC 10.3 4.0 - 10.[address] LAB RBC 2.98 (L) 4.70 - 6.00 [place] [address] [facility] LAB Hemoglobin 10.6 (L) 13.5 - 18.0 [facility] g/dL [facility] HCT 29.6 (L) 42.0 - 52.0 % [facility] MCV 99.3 78 - 100 fL [facility] MCH 35.6 (H) 27 - 31 pg [facility] MCHC 35.8 32 - 37 g/dL [facility] RDW-CV - [facility] 13.8 <14.7 % [facility] PLATELET COUNT - [facility] 179 150 - [address] LAB MPV 11.6 9.2 - 12.0 fL [facility] NEUTROPHILS % (AUTO) 84.2 % [facility] LYMPHOCYTES % (AUTO) 7.2 % [facility] MONOCYTES % (AUTO) - 8.0 % [facility] EOSINOPHILS % (AUTO) 0.0 % [facility] BASOPHILS % (AUTO) - 0.1 % [facility] Immature Granulocyte 0.5 % [facility] % (Auto) [facility] NUCLEATED RBC % 0.0 % [facility] (AUTO) [facility] NEUTROPHILS # (AUTO) 8.7 (H) 1.5 - 6.[address] LAB LYMPHOCYTES # (AUTO) 0.7 (L) 1.0 - 3.[address] LAB MONOCYTES # (AUTO) - 0.8 <1.0 10 3/uL [facility] EOSINOPHILS # (AUTO) 0.0 <0.7 10 3/uL [facility] Absolute Immature 0.05 <0.06 10 3/uL [facility] LAB DIFFERENTIAL METHOD Auto Differential [facility] Specimen Performing Organization Address [facility]/State/ZIP Code Phon e Number [facility] [address] [place] [address] C DIFFICILE TOXIN PCR, F > 2 YRS - [facility] (08/09/2020 3:24 EDT) Specimen Narrative [facility] - 08/10/2020 6 :26 EDT ?? RUN DATE: 08/10/20 ? [facility] HN: [facility] *LIVE* ? PAGE 1 ? RUN TIME: 625 ?Specimen Inquiry ? PATIENT: DAVID FARFAN ? ACCT: [id number] LOC: ??MS ? U: [id number] ? AGE/SX: 69/M ? ROOM: 138 ?RE08/09/20 ?? REG DR: ??Ester Valerio MD ? : ?1950 ?? BED: ??1 ?DIS: ? STATUS: ADM Astrid ?TLOC: ? SPEC #: [id number] ?ALEX: ? STATUS: ??COMP ? REQ #: [id number] ?RECD: 08/10/20 ? SUBM DR: Jennifer Tyson [...] e Number [facility] [address] [place] [address] documented in this encounter Visit Diagnoses Not on filedocumented in this encounter Care Teams Rippler Relationship Specialty Start Date End Date Katia Mccallum PA-C PCP - General 05/02/17 [address] [place] [address] documented as of this encounter
--- OUTSIDE RECORDS SUMMARY | 2021-10-24 18:17 | XMS_ITS | Encounter Summary ---
:1950 Author Organization [facility] Address [address] [place] [address] Care Team Providers Name Role Phone Katia Mccallum PA-C Primary Care Provider [phone] Encounter Details Date Type Department Care Team Description 08/20/2020 Results Only [facility] [address] [place] [address] [place] [address] [place], [place] [phone] [address] (Wo rk) Social History Tobacco Use [...] 08/20/2020 12:51 Resu lts for this - [facility] EDT procedure are i n the results section. documented in this encounter Results ADD ON TEST REQUEST - [facility] (08/20/2020 12:51 EDT) Pathologist Sig nature Special Requests ADD ON DONE [facility] Comment: [facility] All tests (see tests in sample comments) have been add ed as requested. Specimen Narrative [facility] - 08/20/2020 1 2:58 EDT today on the med/surg Magnesium Performing Organization Address City/State/[facility] Code Phon e Number [facility] [address] [place] [address] documented in this encounter Visit Diagnoses Not on filedocumented in this encounter Care Teams Adult Services Librarian Relationship Specialty Start Date End Date Katia Mccallum PA-C PCP - General 05/02/17 [address] [place] [address] documented as of this encounter
--- OUTSIDE RECORDS SUMMARY | 2021-10-24 18:17 | XMS_ITS | Encounter Summary ---
:1950 Author Organization [facility] Address [address] [place] [address] Care Team Providers Name Role Phone Katia Mccallum PA-C Primary Care Provider [phone] Encounter Details Date Type Department Care Team Description 08/08/2020 Results Only [facility] - Renetta Isaac, [facility] MD [address] [place] [address] [place], [place] [phone] (Wo rk) Social History Tobacco Use [...] EDT) WBC 7.6 4.0 - 10.5 10 [facility] 3/[facility] RBC 3.15 (L) 4.70 - 6.00 [place] [address] 6/uL [facility] Hemoglobin 11.3 (L) 13.5 - 18.0 [facility] g/dL [facility] HCT 31.4 (L) 42.0 - 52.0 % [facility] MCV 99.7 78 - 100 fL [facility] LAB MCH 35.9 (H) 27 - 31 pg [facility] MCHC 36.0 32 - 37 g/dL [facility] RDW-CV - PMC 13.8 <14.7 % [facility] PLATELET COUNT - PMC 199 150 - 450 10 [facility] 3/[facility] MPV 11.2 9.2 - 12.0 fL [facility] NEUTROPHILS % (AUTO) 81.3 % [facility] LYMPHOCYTES % (AUTO) 8.6 % [facility] MONOCYTES % (AUTO) - 9.5 % [facility] EOSINOPHILS % (AUTO) 0.0 % [facility] BASOPHILS % (AUTO) - 0.1 % [facility] Immature Granulocyte 0.5 % [facility] % (Auto) [facility] NUCLEATED RBC % 0.0 % [facility] (AUTO) [facility] NEUTROPHILS # (AUTO) 6.1 1.5 - 6.6 10 [facility] 3/uL [facility] LYMPHOCYTES # (AUTO) 0.7 (L) 1.0 - 3.5 10 [facility] 3/uL [facility] MONOCYTES # (AUTO) - 0.7 <1.0 10 3/uL [facility] LAB EOSINOPHILS # (AUTO) 0.0 <0.7 10 3/uL [facility] LAB Absolute Immature 0.04 <0.06 10 3/uL [facility] DIFFERENTIAL METHOD Auto Differential [facility] Specimen Performing Organization Address [facility]/State/ZIP Code Phon e Number [facility] [address] [place] [address] CORONAVIRUS COVID-19 PCR ([facility]) (08/08/2020 17:07 EDT) Specimen Narrative [facility] - 08/08/2020 1 8:36 EDT ?? RUN DATE: 08/08/20 ? [facility]: [facility] *LIVE* ? PAGE 1 ? RUN TIME: 1837 ?Specimen Inquiry ? PATIENT: DAVID FARFAN ? ACCT: [id number] LOC: ??ED ? U: [id number] ? AGE/SX: 69/M ? ROOM: ?RE08/08/20 ?? REG DR: ??Tony Christy MD ?: ?1950 ?? BED: ? DIS: ? STATUS: REG ER ? TLOC: ? SPEC #: [id number] ?ALEX: -1706 ? STATUS: ??COMP ? REQ #: [id number] ?RECD: 08/08/20 ? SUBM DR: Tony Christy [...] This test ?has been authorized by the [facility] under a EUA for use by ?authorized [...] terminated or revoked sooner. ?Testing performed on [employer] instrument ? END OF REPORT ? Performing Organization Address [facility] [address] [place] [address] (ABNORMAL) BNP - PMC (08/08/2020 16:47 EDT) [facility] nature B-TYPE NATRIURETIC 398 (H) <100 pg/mL [facility] PEPTIDE - [facility] LAB Specimen Performing Organization Address [facility] [address] [place] [address] TROPONIN I (08/08/2020 16:47 EDT) [facility] Troponin I <0.050 0 - 0.056 [facility] (ng/mL) Comment: ng/ml [facility] Interpretation: [...] consumption of Biotin. Specimen Performing Organization Address [facility] [address] [place] [address] (ABNORMAL) COMPREHENSIVE METABOLIC PANEL (CMP) (08/08/2020 16:47 EDT) [facility] Sodium 125 (L) 136 - 145 [facility] mEq/L [facility] Potassium 2.9 (L) 3.5 - 5.1 [facility] mEq/L [facility] Chloride 85 (L) 96 - 107 [facility] mEq/L [facility] CO2 Total 26.2 21 - 32 mEq/L [facility] Anion Gap 13.8 mEq/L [facility] BUN 8 7 - 25 mg/dl [facility] Creatinine 0.67 (L) 0.70 - 1.30 [facility] mg/dl [facility] Estimated GFR >60 >60 [facility] Comment: [facility] EGFR UNITS: mL/min/1.73 m 2 CKD-EPI Equation used to calculate. Glucose 101 74 - 106 [facility] mg/dl [facility] Calcium 8.5 8.5 - 10.1 [facility] mg/dl [facility] CALCIUM,CORRECTED - 9.3 8.5 - 10.5 [facility] mg/dl [facility] BILIRUBIN - PMC 1.60 (H) 0.00 - 1.00 [facility] mg/dl [facility] AST 90 (H) 15 - 37 U/L [facility] ALT 62 16 - 63 U/L [facility] Alkaline Phosphatase 133 (H) 46 - 116 U/L [facility] Total Protein 7.6 6.4 - 8.2 [facility] g/dl [facility] Albumin 3.0 (L) 3.4 - 5.0 [facility] g/dl [facility] GLOBULIN - PMC 4.6 g/dl [facility] ALBUMIN/GLOBULIN 0.6 [facility] RATIO - PMC [facility] Specimen Performing Organization Address City/State/ZIP Code Phon e Number [facility] [address] [place] [address] (ABNORMAL) COMPLETE BLOOD COUNT AND DIFFERENTIAL (08/08/2020 16:47 EDT) WBC 7.3 4.0 - 10.5 10 [facility] 3/uL [facility] RBC 3.32 (L) 4.70 - 6.00 [facility] 10 6/uL [facility] Hemoglobin 11.8 (L) 13.5 - 18.0 [facility] g/dL [facility] HCT 32.9 (L) 42.0 - 52.0 % [facility] MCV 99.1 78 - 100 fL [facility] MCH 35.5 (H) 27 - 31 pg [facility] MCHC 35.9 32 - 37 g/dL [facility] RDW-CV - [facility] 13.7 <14.7 % [facility] PLATELET COUNT - [facility] 209 150 - 450 10 [facility] 3/[facility] MPV 11.4 9.2 - 12.0 fL [facility] NEUTROPHILS % (AUTO) 81.9 % [facility] LYMPHOCYTES % (AUTO) 9.1 % [facility] MONOCYTES % (AUTO) - 8.3 % [facility] EOSINOPHILS % (AUTO) 0.0 % [facility] BASOPHILS % (AUTO) - 0.1 % [facility] Immature Granulocyte 0.6 % [facility] % (Auto) [facility] NUCLEATED RBC % 0.0 % [facility] (AUTO) [facility] NEUTROPHILS # (AUTO) 5.9 1.5 - 6.6 10 [facility] 3/[facility] LYMPHOCYTES # (AUTO) 0.7 (L) 1.0 - 3.5 10 [facility] 3/[facility] MONOCYTES # (AUTO) - 0.6 <1.0 10 3/[facility] LAB EOSINOPHILS # (AUTO) 0.0 <0.7 10 3/[facility] LAB Absolute Immature 0.04 <0.06 10 3/[facility] LAB DIFFERENTIAL METHOD Auto Differential [facility] Specimen Performing Organization Address City/State/ZIP Code Phon e Number [facility] [address] [place] [address] documented in this encounter Visit Diagnoses Not on filedocumented in this encounter Care Teams Bridge Opener Relationship Specialty Start Date End Date Katia Mccallum PA-C PCP - General 05/02/17 [address] [place], [place] [address] documented as of this encounter
--- OUTSIDE RECORDS SUMMARY | 2021-10-24 18:17 | XMS_ITS | Encounter Summary ---
:1950 Author Organization [facility] Address [address] [place] [address] Care Team Providers Name Role Phone Katia Mccallum PA-C Primary Care Provider [phone] Reason for Visit Reason Onset Date Comments Appointment Related 05/04/2020 Encounter Details Date Type Department Care Team Description 05/04/2020 Telephone [facility] Cherie Browne MD Appointment Related Cardiothoracic Surgery - [address] [place] [address], [address] [place], [place] [address] [place] [address] [phone] (Wo rk) Social History Tobacco Use [...] Notes Telephone Encounter - Melania Dumas - 05/10/2020 0953 EST Medical records from [facility] received, scanned and book marked for patient's appointment with Dr. Browne. elephone Encounter - Melania Dumas - 05/04/2020 0857 EST Checking status of referral from Dr. Rosenberg to Dr. Browne. No referral noted in Epic from Dr. Rosenberg to Dr. Browne. Per conversation with Dr. Browne, he was not aware of this referral but is willing to see patient on 05/08/2020, at 10:30 am. Fax out to [facility] HIM and [facility] to request patient's Discharge Summary from recent hospitalization, as well as diagnostic testing, EKG, labs, etc. Await response. documented in this encounter Plan of Treatment Not on filedocumented as of this encounter Visit Diagnoses Not on filedocumented in this encounter Care Teams Die Set Up Worker Relationship Specialty Start Date End Date Katia Mccallum PA-C PCP - General 05/02/17 [address] [place] [address] documented as of this encounter
--- OUTSIDE RECORDS SUMMARY | 2021-10-24 18:17 | XMS_ITS | Encounter Summary ---
:1950 Author Organization [facility] Address [address] [place] [address] Care Team Providers Name Role Phone Katia Mccallum PA-C Primary Care Provider [phone] Encounter Details Date Type Department Care Team Description 08/10/2020 Results Only [facility] - [facility] [place] Geetha aVlerio, Rheumatology [address] [facility] [address] [place] [address] [address] [place] [address] (Wo rk) Social History Tobacco Use [...] Magnesium 1.5 (L) 1.8 - 2.4 mg/dl [facility] Specimen Performing Organization Address City/State/ZIP Code Phon e Number [facility] [address] [place] [address] (ABNORMAL) BASIC METABOLIC PANEL (BMP) (08/10/2020 5:35 EDT) Sodium 133 (L) 136 - 145 mEq/L [facility] Potassium 3.4 (L) 3.5 - 5.1 mEq/L [facility] Chloride 98 96 - 107 mEq/L [facility] CO2 Total 27.2 21 - 32 mEq/L [facility] Anion Gap 7.8 mEq/L [facility] BUN 6 (L) 7 - 25 mg/dl [facility] Creatinine 0.54 (L) 0.70 - 1.30 [facility] mg/dl [facility] Estimated GFR >60 >60 [facility] Comment: [facility] EGFR UNITS: mL/min/1.73 m 2 CKD-EPI Equation used to calculate. Glucose 86 74 - 106 mg/dl [facility] Calcium 7.7 (L) 8.5 - 10.1 [facility] mg/dl [facility] Specimen Performing Organization Address [facility] e [facility] [address] [place] [address] (ABNORMAL) HEPATIC FUNCTION PANEL (ALB,ALK PHOS,ALT,AST,DBIL,TOT BOSSMAN,TOT PROT) (08/10/2020 5:35 EDT) Pathologist Sig nature BILIRUBIN - [facility] 0.90 0.00 - 1.00 [facility] mg/dl [facility] DIRECT BILIRUBIN - 0.50 (H) 0.00 - 0.30 [facility] PMC mg/dl [facility] INDIRECT BILIRUBIN - 0.40 0.00 - 0.80 [facility] mg/dl [facility] AST 50 (H) 15 - 37 U/L [facility] ALT 37 16 - 63 U/L [facility] Alkaline Phosphatase 97 46 - 116 U/L [facility] Total Protein 6.1 (L) 6.4 - 8.2 g/dl [facility] Albumin 2.3 (L) 3.4 - 5.0 g/dl [facility] GLOBULIN - [facility] 3.8 g/dl [facility] ALBUMIN/GLOBULIN 0.6 [facility] RATIO - [facility] Specimen Performing Organization Address [facility] [address] [place] [address] (ABNORMAL) COMPLETE BLOOD COUNT AND DIFFERENTIAL (08/10/2020 5:35 EDT) WBC 7.0 4.0 - 10.5 10 [facility] 3/uL [facility] RBC 2.72 (L) 4.70 - 6.00 [facility] 10 6/uL [facility] Hemoglobin 9.7 (L) 13.5 - 18.0 [facility] g/dL [facility] HCT 27.9 (L) 42.0 - 52.0 % [facility] MCV 102.6 (H) 78 - 100 fL [facility] MCH 35.7 (H) 27 - 31 pg [facility] MCHC 34.8 32 - 37 g/dL [facility] RDW-CV - PMC 14.7 <14.7 % [facility] PLATELET COUNT - [facility] 180 150 - 450 10 [facility] 3/[facility] LAB MPV 11.0 9.2 - 12.0 fL [facility] NEUTROPHILS % (AUTO) 65.5 % [facility] LYMPHOCYTES % (AUTO) 17.5 % [facility] LAB MONOCYTES % (AUTO) - 13.9 % [facility] EOSINOPHILS % (AUTO) 2.1 % [facility] LAB BASOPHILS % (AUTO) - 0.4 % [facility] Immature Granulocyte 0.6 % [facility] % (Auto) [facility] NUCLEATED RBC % 0.0 % [facility] (AUTO) [facility] NEUTROPHILS # (AUTO) 4.6 1.5 - 6.6 10 [facility] 3[facility] LAB LYMPHOCYTES # (AUTO) 1.2 1.0 - 3.[address] LAB MONOCYTES # (AUTO) - 1.0 <1.0 10 3/[facility] LAB EOSINOPHILS # (AUTO) 0.2 <0.7 10 3/[facility] LAB Absolute Immature 0.04 <0.06 10 3/[facility] LAB DIFFERENTIAL METHOD Auto Differential [facility] Specimen Performing Organization Address City/State/ZIP Code Phon e Number [facility] [address] [place] [address] documented in this encounter Visit Diagnoses Not on filedocumented in this encounter Care Teams Modern Languages Professor Relationship Specialty Start Date End Date Katia Mccallum PA-C PCP - General 05/02/[address] [place] [address] documented as of this encounter
--- OUTSIDE RECORDS SUMMARY | 2021-10-24 18:17 | XMS_ITS | Encounter Summary ---
:1950 Author Organization [facility] Address [address] [place] [address] Care Team Providers Name Role Phone Katia Mccallum PA-C Primary Care Provider Reason for Visit Reason Onset Date Comments Labs Only 05/17/2020 Lab orders for pre-o p blood work Encounter Details Date Type Department Care Team Description 05/17/2020 Telephone [facility] Cherie Browne MD Labs Only (Lab Cardiothoracic Surgery - [address] orders for pre-op [facility] blood work) [address] [facility], [address] [place], [place] [address] [place] [address] [phone] (Wo rk) Social History Tobacco Use [...] note of 05/16. Explained again to [employer] Analyst. elephone Encounter - Melania Dumas - 05/17/2020 1044 EDT Nila (graphite disk assembler from [employer]) calling to find out if patient's lab orders were faxed to [facility]. Per Nila, patient did not have his blood drawn while here at [facility] on 05/16/2020. Behavioral Health Specialist explained to caller that patients are usually unable to have pre-op blood bank done at any other facilitybut policy writer will defer to CT Surgery RN. Nila requesting return call to [phone], extension: 7. documented in this encounter Plan of Treatment Not on filedocumented as of this encounter Visit Diagnoses Not on filedocumented in this encounter Care Teams Honing Machine Set Up Operator Tool Relationship Specialty Start Date End Date Katia Mccallum PA-C PCP - General 05/02/[address] [place] [id number] documented as of this encounter
--- OUTSIDE RECORDS SUMMARY | 2021-10-24 18:17 | XMS_ITS | Encounter Summary ---
:[address] [facility] Address [address] [place] [address] Care Team Providers Name Role Phone Katia Mccallum PA-C Primary Care Provider [phone] Encounter Details Date Type Department Care Team Description 06/19/2020 Hospital Encounter [facility] [place] Pre-Surgical Testing [address] [place] [address] Social History Tobacco Use Types Packs/Day Years [...] Taken Comments Blood Pressure - - Pulse - - Temperature - - Respiratory Rate - - Oxygen Saturation - - Inhaled Oxygen Concentration - - Weight 99.8 kg (220 lb) 06/19/2020 1612 EDT Height 182.9 cm (6') 06/19/2020 1612 EDT Body Mass Index 29.84 06/19/2020 1612 EDT documented in this encounter Functional Status [...] Care documented in this encounter Progress Notes Zeina Lew RN - 06/19/2020 1600 EDT This RN called pt to go over his health information for anesthsia purposes. Pt very vague with his answers and declined to be specific when asked further details. Pt states he does not know his medications and there is no one there to help. This RN was unable to verify the medications. Pt unsure aboutride to hospital - to be organized by his home health care case manager Nila Villalobos. Pt refused to listen to instructions for surgery states I am waiting for the paper work that tells me what meds to take. This RN spokewith Cat Sutherland stripping shovel operator to discuss above. Cat to call pt tomorrow to confirm informationson medications as well as instructions otherwise. She will also contact case coordinator to confirm ride. documented in this encounter Plan of Treatment Not on filedocumented as of this encounter Visit Diagnoses Not on filedocumented in this encounter Care Teams Shank Boner Relationship Specialty Start Date End Date Katia Mccallum PA-C PCP - General 05/02/[address] [place] [id number] documented as of this encounter
--- OUTSIDE RECORDS SUMMARY | 2021-10-24 18:17 | XMS_ITS | Encounter Summary ---
:1950 Author Organization [facility] Address [address] [place] [address] Care Team Providers Name Role Phone Katia Mccallum PA-C Primary Care Provider [phone] Encounter Details Date Type Department Care Team Description 08/14/2020 Results Only [facility] - [facility] [address] [place] [place] [address] [place], [place] [phone] (Wo rk) Social History Tobacco Use [...] Magnesium 1.6 (L) 1.8 - 2.4 mg/dl [facility] Specimen Performing Organization Address City/State/ZIP Code Phon e Number [facility] [address] [place] [address] (ABNORMAL) COMPREHENSIVE METABOLIC PANEL (CMP) (08/14/2020 5:03 EDT) Sodium 138 136 - 145 [facility] mEq/L [facility] Potassium 3.6 3.5 - 5.1 [facility] mEq/L [facility] Chloride 103 96 - 107 [facility] mEq/L [facility] CO2 Total 28.4 21 - 32 mEq/L [facility] Anion Gap 6.6 mEq/L [facility] BUN 11 7 - 25 mg/dl [facility] Creatinine 0.51 (L) 0.70 - 1.30 [facility] mg/dl [facility] LAB Estimated GFR >60 >60 [facility] Comment: [facility] EGFR UNITS: mL/min/1.73 m 2 CKD-EPI Equation used to calculate. Glucose 101 74 - 106 [facility] mg/dl [facility] Calcium 8.1 (L) 8.5 - 10.1 [facility] mg/dl [facility] CALCIUM,CORRECTED - 9.5 8.5 - 10.5 [facility] PMC mg/dl [facility] BILIRUBIN - [facility] 0.40 0.00 - 1.00 [facility] mg/dl [facility] AST 34 15 - 37 U/L [facility] ALT 21 16 - 63 U/L [facility] Alkaline Phosphatase 102 46 - 116 U/L [facility] Total Protein 6.3 (L) 6.4 - 8.2 [facility] g/dl [facility] Albumin 2.2 (L) 3.4 - 5.0 [facility] g/dl [facility] GLOBULIN - [facility] 4.1 g/dl [facility] ALBUMIN/GLOBULIN 0.5 [facility] RATIO [facility] Specimen Performing Organization Address City/State/ZIP Code Phon e Number [facility] [address] [place] [address] (ABNORMAL) COMPLETE BLOOD COUNT AND DIFFERENTIAL (08/14/2020 5:03 EDT) WBC 5.1 4.0 - 10.5 10 [facility] 3/uL [facility] RBC 2.76 (L) 4.70 - 6.00 10 [facility] 6/uL [facility] Hemoglobin 9.9 (L) 13.5 - 18.0 g/dL [facility] HCT 28.7 (L) 42.0 - 52.0 % [facility] MCV 104.0 (H) 78 - 100 fL [facility] MCH 35.9 (H) 27 - 31 pg [facility] MCHC 34.5 32 - 37 g/dL [facility] RDW-CV - PMC 15.9 (H) <14.7 % [facility] PLATELET COUNT - 189 150 - 450 10 3/uL [facility] MPV 10.8 9.2 - 12.0 fL [facility] NEUTROPHILS % 54.7 % [facility] (AUTO) [facility] LYMPHOCYTES % 23.0 % [facility] (AUTO) [facility] MONOCYTES % (AUTO) 18.2 % [facility] EOSINOPHILS % 2.5 NOT ESTABLISHED % [facility] (AUTO) [facility] BASOPHILS % (AUTO) 0.8 % [facility] Immature 0.8 % [facility] Granulocyte % [facility] (Auto) NUCLEATED RBC % 0.0 % [facility] (AUTO) - [facility] LAB NEUTROPHILS # 2.8 1.5 - 6.6 10 3/uL [facility] (AUTO) - [facility] LAB LYMPHOCYTES # 1.2 1.0 - 3.5 10 3/uL [facility] (AUTO) - [facility] LAB MONOCYTES # (AUTO) 0.9 <1.0 10 3/uL [facility] - [facility] LAB EOSINOPHILS # 0.1 <0.7 10 3/uL [facility] (AUTO) - [facility] LAB Absolute Immature 0.04 <0.06 10 3/uL [facility] Granulocyte [facility] DIFFERENTIAL Auto Differential [facility] METHOD [facility] Specimen Narrative [facility] - 08/14/2020 6 :11 EDT Comment ENOXAPARIN MONITORING Performing Organization Address City/State/ZIP Code Phon e Number [facility] [address] [place] [address] documented in this encounter Visit Diagnoses Not on filedocumented in this encounter Care Teams Comptroller Relationship Specialty Start Date End Date Katia Mccallum PA-C PCP - General 05/02/[address] [place] [id number] documented as of this encounter
--- OUTSIDE RECORDS SUMMARY | 2021-10-24 18:17 | XMS_ITS | Encounter Summary ---
:1950 Author Organization [facility] Address [address] [place] [address] Care Team Providers Name Role Phone Katia Mccallum PA-C Primary Care Provider [phone] Reason for Visit Reason Onset Date Comments Appointment Related 06/19/2020 Encounter Details Date Type Department Care Team Description 06/19/2020 Telephone [facility] Cherie Browne MD Appointment Related Cardiothoracic Surgery - [address] [place] [address], [address] [place], [place] [address] [place] [address] [phone] (Wo rk) Social History Tobacco Use [...] - 06/19/2020 0858 EDT TC to Nila, Ornamental Rail Installer, at patient's PCP Office. She is aware that patient has a PAT appointment today between 4:00 and 4:45 pm with an Anesthesia Nurse. Patient is scheduled for surgery on 06/26 at 12:10 pm and should arrive in the Registration Department at 10:10 am. Ornamental Rail Installer states that patienthas a COVID test scheduled for 06/22 at [facility]. New telephone number noted for Ornamental Rail Installer is [phone]. documented in this encounter Plan of Treatment Not on filedocumented as of this encounter Visit Diagnoses Not on filedocumented in this encounter Care Teams Veterinarian Helper Relationship Specialty Start Date End Date Katia Mccallum PA-C PCP - General 05/02/[address] [place] [id number] documented as of this encounter
--- OUTSIDE RECORDS SUMMARY | 2021-10-24 18:17 | XMS_ITS | Encounter Summary ---
:1950 Author Organization [facility] Address [address] [place] [address] Care Team Providers Name Role Phone Katia Mccallum PA-C Primary Care Provider [phone] Encounter Details Date Type Department Care Team Description 08/13/2020 Lab Requisition [facility] Outr Resulting Lab, Pathology & Laboratory Provider [facility] [address] [place] [phone] Social History Tobacco Use Types Packs/Day Years [...] Pathologist Sig nature Salmonella PCR Negative Negative [facility] Shigella/Enteroinvasive Negative Negative [facility] E. coli LABORATORY SERVICES HN LAB CAMPYLOBACTER PCR Negative Negative [facility] Shiga Toxin PCR Negative Negative [facility] Specimen Feces - Specimen from rectum (specimen) Performing Organization Address City/State/ZIP Code Phon e Number [facility] [address] [place] [address] SERVICES documented in this encounter Visit Diagnoses Not on filedocumented in this encounter Care Teams Tribunal Member Relationship Specialty Start Date End Date Katia Mccallum PA-C PCP - General 05/02/[address] [place] [id number] documented as of this encounter
--- OUTSIDE RECORDS SUMMARY | 2021-10-24 18:17 | XMS_ITS | Encounter Summary ---
:1950 Author Organization [facility] Address [address] [place] [address] Care Team Providers Name Role Phone Katia Mccallum PA-C Primary Care Provider [phone] Encounter Details Date Type Department Care Team Description 08/11/2020 Results Only [facility] - [facility] Geetha Valerio, Rheumatology [address] [facility] [address] [place] [address] [address] [place] [address] (Wo rk) Social History Tobacco Use [...] Magnesium 1.5 (L) 1.8 - 2.4 mg/dl [facility] Specimen Performing Organization Address City/State/ZIP Code Phon e Number [facility] [address] [place] [address] (ABNORMAL) BASIC METABOLIC PANEL (BMP) (08/11/2020 5:25 EDT) Sodium 132 (L) 136 - 145 mEq/L [facility] Potassium 3.5 3.5 - 5.1 mEq/L [facility] Chloride 99 96 - 107 mEq/L [facility] CO2 Total 28.6 21 - 32 mEq/L [facility] Anion Gap 4.4 mEq/L [facility] BUN 5 (L) 7 - 25 mg/dl [facility] Creatinine 0.51 (L) 0.70 - 1.30 [facility] mg/dl [facility] LAB Estimated GFR >60 >60 [facility] Comment: [facility]ENTER LAB EGFR UNITS: mL/min/1.73 m 2 CKD-EPI Equation used to calculate. Glucose 112 (H) 74 - 106 mg/dl [facility] Calcium 7.7 (L) 8.5 - 10.1 [facility] mg/dl [facility] LAB Specimen Performing Organization Address City/[facility]/ZIP Code Phon e Number [facility] [address] [place] [address] (ABNORMAL) HEPATIC FUNCTION PANEL (ALB,ALK PHOS,ALT,AST,DBIL,TOT BOSSMAN,TOT PROT) (08/11/2020 5:25 EDT) Pathologist Sig nature BILIRUBIN - PM[facility] 0.70 0.00 - 1.00 [facility] mg/dl [place] [facility] DIRECT BILIRUBIN - [facility] 0.30 0.00 - 0.30 [facility] mg/dl [facility] INDIRECT BILIRUBIN - 0.40 0.00 - 0.80 [facility] mg/dl [facility] AST 39 (H) 15 - 37 U/L [facility] ALT 30 16 - 63 U/L [facility] Alkaline Phosphatase 95 46 - 116 U/L [facility] Total Protein 6.1 (L) 6.4 - 8.2 g/dl [facility] Albumin 2.2 (L) 3.4 - 5.0 g/dl [facility] GLOBULIN - [facility] 3.9 g/dl [facility] LAB ALBUMIN/GLOBULIN RATIO 0.5 [facility]ENTER LAB Specimen Performing Organization Address City/[facility] Code Phon e Number [facility] [address] [place] [address] documented in this encounter Visit Diagnoses Not on filedocumented in this encounter Care Teams English Professor Relationship Specialty Start Date End Date Katia Mccallum PA-C PCP - General 05/02/[address] [place] [id number] documented as of this encounter
--- OUTSIDE RECORDS SUMMARY | 2021-10-24 18:17 | XMS_ITS | Encounter Summary ---
:1950 Author Organization [facility] Address [address] [place] [address] Care Team Providers Name Role Phone Katia Mccallum PA-C Primary Care Provider [phone] Encounter Details Date Type Department Care Team Description 08/19/2020 Results Only [facility] [address] [place] [phone] (Wo rk) Social History Tobacco Use Types [...] Sodium 134 (L) 136 - 145 mEq/L [facility] Potassium 3.5 3.5 - 5.1 mEq/L [facility] Chloride 99 96 - 107 mEq/L [facility] CO2 Total 29.4 21 - 32 mEq/L [facility] Anion Gap 5.6 mEq/L [facility] BUN 8 7 - 25 mg/dl [facility] Creatinine 0.48 (L) 0.70 - 1.30 [facility] mg/dl [place] [facility] Estimated GFR >60 >60 [facility] Comment: [facility]ENTER [facility] EGFR UNITS: mL/min/1.73 m 2 CKD-EPI Equation used to calculate. Glucose 93 74 - 106 mg/dl [facility] Calcium 8.3 (L) 8.5 - 10.1 [facility] mg/dl [facility] Specimen Performing Organization Address City/State/ZIP Code Phon e Number [facility] [address] [place] [address] documented in this encounter Visit Diagnoses Not on filedocumented in this encounter Care Teams Chemical Production Engineer Relationship Specialty Start Date End Date Katia Mccallum PA-C PCP - General 05/02/[address] [place] [id number] documented as of this encounter
--- OUTSIDE RECORDS SUMMARY | 2021-10-24 18:17 | XMS_ITS | Encounter Summary ---
:1950 Author Organization [facility] Address [address] [place] [address] Care Team Providers Name Role Phone Katia Mccallum PA-C Primary Care Provider [phone] Reason for Visit Reason Onset Date Comments Labs Only 05/11/2020 Encounter Details Date Type Department Care Team Description 05/11/2020 Telephone [facility] Acute Ja Young MD Labs Only Care Surgery [address] [address] [address], [place], [place] [address] (Wo rk) Social History [...] and also reviewed this with the Radiology electrician front on ACC 3 that he would need to be taken to the lab on Level 2 following his chest x-ray. They did not take him. I will re-enter the orders for the CBC to have drawn at [place] which is closest to the patient's home he states. I have routed our CT PACHECO Salvador STOUT to re-enter the Type and Screen/ x match order to be drawn in pre-op hold on the dosa. Pt made aware to go to [facility] to have the CBC drawn on 05/17 or 05/18. I confirmed with the Lab there that it's the CBC that needs to be drawn. Switchboard Operator Receptionist verbalized understanding and no appt needed. Pt [...] on filedocumented in this encounter Care Teams Freight Clerk Relationship Specialty Start Date End Date Katia Mccallum PA-C PCP - General 05/02/[address] [place] [id number] documented as of this encounter
--- OUTSIDE RECORDS SUMMARY | 2021-10-24 18:17 | XMS_ITS | Encounter Summary ---
:1950 Author Organization [facility] Address [address] [place] [address] Care Team Providers Name Role Phone Katia Mccallum PA-C Primary Care Provider Encounter Details Date Type Department Care Team Description 08/11/2020 Results Only [facility] [address] [place] [address] [place], [place] [phone] (Wo rk) Social History Tobacco Use [...] EDT) PARASITE ID - PMC SEE NOTES [facility] Comment: CENTER [facility] RESULT: No ova and parasites seen. Source:stool (If Cryptosporidium, Cyclospora, or Microsporidium are suspected, specific tests must be requested.) Single negative specimen does not rule out the possibility of a parasitic infection. Test performed [place] [address] Specimen Narrative [facility] - 08/14/2020 1 5:34 EDT stool Performing Organization Address [facility] Phon e Number [facility] [address] [place] [id number] FECAL BACTERIAL PATHOGENS BY PCR (08/11/2020 14:50 EDT) Salmonella PCR Negative Negative [facility] Shigella/Enteroinvasi Negative Negative [facility] ve E. coli CENTER LAB HN LAB CAMPYLOBACTER Negative Negative [facility] PCR [facility] Shiga Toxin PCR Negative Negative [facility] Comment: CENTER [facility] Test performed or referred by The [address] [address] Specimen Performing Organization Address [facility] Phon e Number [facility] [address] [place] [address] documented in this encounter Visit Diagnoses Not on filedocumented in this encounter Care Teams Tube Filler Relationship Specialty Start Date End Date Katia Mccallum PA-C PCP - General 3/2/[address] [place] [id number] documented as of this encounter
--- OUTSIDE RECORDS SUMMARY | 2021-10-24 18:17 | XMS_ITS | Encounter Summary ---
:1950 Author Organization [facility] Address [address] [place] [address] Care Team Providers Name Role Phone Katia Mccallum PA-C Primary Care Provider [phone] Encounter Details Date Type Department Care Team Description 01/13/2020 Results Only [facility]- Jayesh Baldwin, [address] [place] [phone] (Wo rk) Social History Tobacco Use [...] Sodium 122 (L) 136 - 145 mEq/L [facility] Specimen Performing Organization Address [facility] Phon e Number [facility] [address] [place] [address] (ABNORMAL) SODIUM (01/13/2020 13:12 EST) Pathologist Sig nature Sodium 126 (L) 136 - 145 mEq/L [facility] Specimen Performing Organization Address [facility] e [facility] [address] [place] [address] documented in this encounter Visit Diagnoses Not on filedocumented in this encounter Care Teams Flake Cutter Operator Relationship Specialty Start Date End Date Katia Mccallum PA-C PCP - General 05/02/[address] [place] [id number] documented as of this encounter
--- OUTSIDE RECORDS SUMMARY | 2021-10-24 18:17 | XMS_ITS | Encounter Summary ---
:1950 Author Organization [facility] Address [address] [place] [address] Care Team Providers Name Role Phone Katia Mccallum PA-C Primary Care Provider [phone] Encounter Details Date Type Department Care Team Description 01/17/2020 Results Only [facility]- Jayesh Baldwin, [address] [place] [phone] (Wo rk) Social History Tobacco Use [...] Pathologist Sig nature Cortisol, S SEE COMMENTS [facility] Comment: CENTER LAB Test ?Result ?Flag ??Unit ?RefValue ------ Cortisol, S ??AM Result ? 11 ?mcg/dL ??7-25 Test Performed by: [facility] [address] [place] [address] Business Info Consultant: Pierre Andersen M.D. Ph.D.; CLIA# [id number] Specimen Performing Organization Address City/State/ZIP Code Phon e Number [facility] [address] [place] [address] (ABNORMAL) BASIC METABOLIC PANEL,RANDOM - PMC (01/17/2020 7:50 EST) Sodium 130 (L) 136 - 145 mEq/L [facility] Potassium 3.7 3.5 - 5.1 mEq/L [facility] Chloride 95 (L) 96 - 107 mEq/L [facility] CO2 Total 27.4 21 - 32 mEq/L [facility] Anion Gap 7.6 mEq/L [facility] BUN 10 7 - 25 mg/dl [facility] Creatinine 0.62 (L) 0.70 - 1.30 [facility] mg/dl [facility]ENTER [facility] Estimated GFR >60 >60 [facility] Comment: [facility]ENTER [facility] EGFR UNITS: mL/min/1.73 m 2 CKD-EPI Equation used to calculate. Glucose 91 70 - 180 mg/dl [facility] Calcium 8.4 (L) 8.5 - 10.1 [facility] mg/dl [facility] Specimen Performing Organization Address City/State/ZIP Code Phon e Number [facility] [address] [place] [address] documented in this encounter Visit Diagnoses Not on filedocumented in this encounter Care Teams Student Services Representative Relationship Specialty Start Date End Date Katia Mccallum PA-C PCP - General 05/02/[address] [place] [id number] documented as of this encounter
--- OUTSIDE RECORDS SUMMARY | 2021-10-24 18:17 | XMS_ITS | Encounter Summary ---
:1950 Author Organization [facility] Address [address] [place] [address] Care Team Providers Name Role Phone Katia Mccallum PA-C Primary Care Provider [phone] Encounter Details Date Type Department Care Team Description 08/20/2020 Results Only [facility] - Junior Ruiz [facility] [address] [place] [phone] (Wo rk) Social History Tobacco Use Types [...] Magnesium 1.6 (L) 1.8 - 2.4 mg/dl [facility] Specimen Performing Organization Address [facility] Phon e Number [facility] [address] [place] [address] (ABNORMAL) BASIC METABOLIC PANEL (BMP) (08/20/2020 6:50 EDT) Sodium 134 (L) 136 - 145 mEq/L [facility] Potassium 3.6 3.5 - 5.1 mEq/L [facility] Chloride 100 96 - 107 mEq/L [facility] CO2 Total 28.7 21 - 32 mEq/L [facility] Anion Gap 5.3 mEq/L [facility] BUN 7 7 - 25 mg/dl [facility] Creatinine 0.48 (L) 0.70 - 1.30 [facility] mg/dl [facility] Estimated GFR >60 >60 [facility] Comment: [facility] EGFR UNITS: mL/min/1.73 m 2 CKD-EPI Equation used to calculate. Glucose 91 74 - 106 mg/dl [facility] Calcium 8.3 (L) 8.5 - 10.1 [facility] mg/dl [facility] Specimen Performing Organization Address [facility]/ZIP Code Phon e Number [facility] [address] [place] [address] (ABNORMAL) COMPLETE BLOOD COUNT (08/20/2020 6:50 EDT) Pathologist Sig nature WBC 5.8 4.0 - 10.5 10 [facility] 3/[facility] RBC 2.96 (L) 4.70 - 6.00 10 [facility] 6/uL [place] [facility] Hemoglobin 10.5 (L) 13.5 - 18.0 [facility] g/dL [facility] HCT 29.8 (L) 42.0 - 52.0 % [facility] MCV 100.7 (H) 78 - 100 fL [facility] MCH 35.5 (H) 27 - 31 pg [facility] MCHC 35.2 32 - 37 g/dL [facility] RDW-CV - PMC 14.7 <14.7 % [facility] PLATELET COUNT - PMC 253 150 - [address] LAB MPV 10.1 9.2 - 12.0 fL [facility] Specimen Performing Organization Address City/State/ZIP Code Phon e Number [facility] [address] [place] [address] documented in this encounter Visit Diagnoses Not on filedocumented in this encounter Care Teams Diesel Fleet Mechanic Relationship Specialty Start Date End Date Katia Mccallum PA-C PCP - General 05/02/[address] [place] [id number] documented as of this encounter
--- OUTSIDE RECORDS SUMMARY | 2021-10-24 18:17 | XMS_ITS | Encounter Summary ---
:1950 Author Organization [facility] Address [address] [place] [address] Care Team Providers Name Role Phone Katia Mccallum PA-C Primary Care Provider [phone] Encounter Details Date Type Department Care Team Description 08/08/2020 Results Only [facility] Virginia Quintana MD Dermatology - [facility] [address], [place] [address] [phone] [place], [place] [address] [phone] Social History Tobacco Use Types Packs/Day Years [...] Sig nature Special Requests ADD ON DONE [facility] Comment: [facility]ENTER [facility] All tests (see tests in sample comments) have been add ed as requested. Specimen Narrative [facility] - 08/08/2020 2 1:57 EDT ED this evening Mg Performing Organization Address City/[facility]/ZIP Code Phon e Number [facility] [address] [place] [address] (ABNORMAL) MAGNESIUM (08/08/2020 16:47 EDT) Pathologist Sig nature Magnesium 1.7 (L) 1.8 - 2.4 mg/dl [facility] Specimen Performing Organization Address City/[facility]/ZIP [facility] Phon e Number [facility] [address] [place] [address] documented in this encounter Visit Diagnoses Not on filedocumented in this encounter Care Teams Extruder Tender Relationship Specialty Start Date End Date Katia Mccallum PA-C PCP - General 05/02/17 [address] [place] [id number] documented as of this encounter
--- OUTSIDE RECORDS SUMMARY | 2021-10-24 18:17 | XMS_ITS | Encounter Summary ---
:1950 Author Organization [facility] Address [address] [place] [address] Care Team Providers Name Role Phone Katia Mccallum PA-C Primary Care Provider [phone] Encounter Details Date Type Department Care Team Description 01/15/2020 Results Only [facility] - [address], Provider, [facility] [address] [place], [place] [id number] Social History Tobacco Use Types Packs/Day Years [...] Sodium 124 (L) 136 - 145 mEq/L [facility] Specimen Performing Organization Address City/State/ZIP Code Phon e Number [facility] [address] [place] [address] documented in this encounter Visit Diagnoses Not on filedocumented in this encounter Care Teams Pen And Pencil Repairer Relationship Specialty Start Date End Date Katia Mccallum PA-C PCP - General 05/02/[address] [place] [id number] documented as of this encounter
--- OUTSIDE RECORDS SUMMARY | 2021-10-24 18:17 | XMS_ITS | Encounter Summary ---
:1950 Author Organization [facility] Address [address] [place] [address] Care Team Providers Name Role Phone Katia Mccallum PA-C Primary Care Provider [phone] Encounter Details Date Type Department Care Team Description 07/28/2020 Results Only [facility] - Katia Mccallum , [facility] Mary AGUILA [address] [place] [place] [address] [place] [address] [phone] (Wo rk) Social History Tobacco Use Types [...] Name Priority Date/Time Associated Diagnosis Comme nts MESSAGE - PMC Routine 07/28/2020 14:38 Results fo r this EDT procedure are i n the results section. IRON,TIBC,FERRITIN Routine 07/28/2020 14:38 Resul ts for this [facility] EDT procedure are i n the results section. FOLATE Routine 07/28/2020 14:38 Results for this EDT procedure are i n the results section. VITAMIN B12 Routine 07/28/2020 14:38 Results for this EDT procedure are i n the results section. documented in this encounter Results FOLATE (07/28/2020 14:38 EDT) Pathologist Sig nature Folate 9.0 >8.6 ng/mL [facility] Specimen Performing Organization Address [facility] [address] [place] [address] VITAMIN B12 (07/28/2020 14:38 EDT) Vitamin B12 265 193 - 986 [facility] Comment: pg/mL [facility] The results of this assay can be falsely elevated due to the consumption of Biotin. Specimen Performing Organization Address [facility] Phon e [facility] [address] [place] [address] (ABNORMAL) IRON,TIBC,FERRITIN [facility] (07/28/2020 14:38 EDT) Pathologist Sig nature Iron 158 65 - 175 mcg/dL [facility] Iron Binding 212 (L) 250 - 450 [facility] Cap[facility] mcg/dL [facility] PERCENT IRON 75 (H) 14 - 50 % [facility] Ferritin >1000 (H) 26 - 388 ng/mL [facility] Specimen Performing Organization Address [facility]/State/[facility] [address] [place] [address] MESSAGE - PMC (07/28/2020 14:38 EDT) Pathologist Sig nature MESSAGE - [facility] Comment: CENTER LAB WE HAVE NOT RECEIVED ORDERS. PLEASE SEND THEM TO US. Nunu BHARDWAJ. Specimen Narrative [facility] - 07/29/2020 2 :55 EDT NO ORDERS TIGER AND LAV Performing Organization Address City/State/ZIP Code Phon e Number [facility] [address] [place] [address] documented in this encounter Visit Diagnoses Not on filedocumented in this encounter Care Teams Gas Meter Mechanic Relationship Specialty Start Date End Date Katia Mccallum PA-C PCP - General 05/02/[address] [place] [id number] documented as of this encounter
--- OUTSIDE RECORDS SUMMARY | 2021-10-24 18:17 | XMS_ITS | Encounter Summary ---
:[address] [facility] Address [address] [place] [address] Care Team Providers Name Role Phone Katia Mccallum PA-C Primary Care Provider [phone] Reason for Referral Radiology Services (Routine) - Authorization Not Required Specialty Diagnoses / Procedures Referred By Contact Refer red To Contact Diagnoses 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, initial encounter José Miguel Roca PA-C Procedures XR CHEST 2 VIEWS 111 [facility] [address] [place] [address] Referral ID Status Reason Start Expiration Visits Visits Date Date Requested Authorized [id number] Authorization Not 05/16/2020 1 1 Required Reason for Visit Reason Comments New Patient Visit consult Advice Only PLEASE WEAR ADITTIONAL EYE S HIElDS WHEN IN ROOM,, PT UNABLE TO WEAR A MASK Consult, Test and Treat (Routine) - Authorization Not Required Specialty Diagnoses / Procedures Referred By Contact Refer red To Contact Cardiothoracic Surgery Diagnoses Pacemaker lead malfunction Tony Rosenberg MD Polomsky, Marek, MD [address] [address] [place] [address] Phone: Fax: Referral ID Status Reason Start Expiration Visits Visits Date Date Requested Authorized [id number] Authorization Not 1 1 Required Encounter Details Date Type Department Care Team Description 05/16/2020 Office Visit [facility] Ja Browne Displ acement of Cardiothoracic Surgery electrode lead of - [facility] [address] [facility] cardiac pacemaker, 111 [facility] [place] [address] Pavilion, Level 5 (Primary Dx) [phone] [place] [id number] Social History Tobacco Use Types Packs/Day Years [...] or older) documented as of this encounter Patient Instructions Patient InstructionsCat Sutherland RN - 05/16/2020 9:30 EDT Images from the original note were not included. Preoperative Instructions ??? Thoracic Surgery Patients Welcome to the Division of Cardiothoracic Surgery at the [facility]. We look forward to making your stay a safe, comfortable and pleasant experience. ??? Your surgery is scheduled on: To Be Announced ??? Please plan to arrive at: To Be Announced ??? When you arrive you should report to Registration on Level 3 (street level), located near the Main Entrance of the [facility] at the [facility]. Due to COVID, there is no visitation allowed during your hospital stay. You may bring one non-sick person only with you on the day of the surgery. That person can go with you to the Pre-Op Hold Waiting Room and then they can either wait in the waiting room and talk with the Surgeon following your surgeryOR leave and the Surgeon will contact that person by phone. If you have questions, feel free to contact our office. Prior to surgery, you will be scheduled for an anesthesia pre-screen telephone call with the Pre-Operative Department ??? Your telephone call has been scheduled for: To Be Announced. ??? If you do not receive an appointment for the pre-screen call within two days of this appointmentplease contact our office at [phone]. We have included a local lodging list should you or your family require accommodations around the time of your surgery. Discounts may apply for family members of patients being hospitalized, please askthe hotel when booking. If you have cancer, you and your family member are eligible to stay at the [employer] [place]. The Oncology Patient Navigator can be reached at [phone] for assistance with this. You should receive a call from our office 1-3 days prior to your scheduled surgery to review instructions and answer any questions. During this time please verify with our office your contact information for the day and night before surgery. In the event of a scheduling change, we will then be able tocontact you. Please stop or hold the following medications prior to surgery as instructed below: ??? DO NOT TAKE THE DEMADEX (TORSEMIDE) ON THE DAY OF THE SURGERY General Medication Instructions: ??? If you are [...] days prior to your surgery. Stop Saw [place] 14 days prior to surgery. ??? Acetaminophen (Tylenol) is an acceptable over the counter pain medication that may be taken right up to the day of surgery if needed. ??? If you are currently taking any anticoagulants (blood thinners) or anti- platelet drugs please discuss with your surgery team as to whether these should be stopped before surgery. Examples include: Warfarin (Coumadin), Clopidogrel (Plavix), Dabigatran (Pradaxa), Ticagrelor (Brilinta), Rivaroxaban (Xarelto), Apixaban (Eliquis). If you were told to stop, take your last dose on ( OF TODAY YOU STATED YOU ARE NOT ON ANY OF THESE. IF THIS CHANGES, CALL OUR OFFICE AT [phone]. Continue to take all of your other medications unless otherwise specified in these instructions, taking your regularly scheduled medications the day [...] You do not need to bring this with you. ??? Hair clipping of the chest may be necessary. This will be completed in the Pre-Operative Hold area on the day of your surgery. Do not do this on your own. ??? Wear comfortable, loose fitted, freshly laundered clothing to the hospital. Button down shirts may be helpful. ??? Do not wear any nail maori, makeup, powder, lotion, deodorant or jewelry of any kind. ??? Do not bring valuables. ??? Bring your eyeglasses, contacts or hearing aids with you, as well as any cases for these items. ??? If you use BIPAP or CPAP for sleep apnea, please bring this with you on the day of the surgery. ??? If you have a fever, chills, muscle pain, loss of taste or smell, cough, shortness of breath, flu-like symptoms, diarrhea, sore throat or other signs of an illness, please inform our office so the Surgeon can adjust your surgery date if appropriate. ??? If you have been exposed to COVID (Miller Virus) contact our office. ??? You will have a COVID test that must be collected between 5 to 7 days before the surgery date toensure timely results. The Patient Access Center will contact you with an appointment at a location closest to your home for the test. Once the test is completed, you will need to quarantine at home until the surgery. If you don't hear from them with an appointment contact them at [phone] as the test MUST BE DONE 72 - 96 HOURS PRIOR TO YOUR SURGERY. NO LATER AND NO SOONER. Post-Operative Information: ??? If you have an Advance Directive, please bring a copy with you on the day of surgery so that it may be added to your medical record. ??? Your length of stay at the Hospital will depend upon the complexity of your surgery and your recovery process. As you near discharge, the Inpatient Team will normally inform you 24 hours in advance. ??? Approximately 2-3 weeks post-operatively, you will follow-up with your Cardiothoracic Surgeon for a check-up. With your in-person office visit, please check in at Registration on Level 3 (street level) for this. Following check-in, you will have a chest x-ray done. Following the chest x-ray proceed to the Surgeon's office on Level 5 [facility] Surgery Outpatient office. Note: If for some reason [...] listed below. The Division of Cardiothoracic Surgery [address] [place] [address] (Toll Free) MD eGovanni Toure MD Marek Polomsky, MD Chris Rokkas, MD jes 10/2019 documented in this encounter Progress Notes Cat Sutherland RN - 05/16/2020 0930 EDT Cardiac Surgery Nursing Pre-Operative Teaching ELECTIVES Surgical Procedure: Lead Extraction Possible Laser lead and Placement new pacer lead Surgical Procedure Date and Time: TBA Surgeon: Dr Browne Patient Education Topic: Cardiac Surgery Information Method: Demonstration, Handouts, Verbal. The following Cardiac Surgery Patient Educational Information was given to the patient with my review today: Review of anticpated Hospital Course and post-op pain management reviewed Verbally. yes Inspirometer demonstrated and given for practice pre-operatively. Pt instructed to use every 1-2 hours 10 cycles each time post-operatively. yes Preoperative Instructions (also documented in Prism) given and reviewed yes Skin Preparation Instructions with Antibiotic Prescription for Bactroban to fill and use if nasal culture positive. Hibiclens shower daily instructions for positive culture (5 days for both) reviewed. Skin Preparation Handout given for Review. yes Cardiac Nutrition Basics given for review. yes Resource Center Handout given for review. yes Web Site Listing Handout given for review. yes Lodging List given for review. yes Physical Activity for the Patient Following Cardiac Surgery Handout given for review. yes Smoking Cessation Information Handout given for review In patients having CABG Surgery, graft closure risk reviewed with continued smoking. Not smoking Hibiclens Soap x 2 bottles with instructions given and reviewed. yes No lift push pull greater than 5 lbs post-op No driving x 4 weeks post-operatively or until the Provider approves reviewed. yes Initial Discharge Planning from Surgery Information: TBA Taught to: Patient Barriers to Learning: None Outcomes: Pt verbalized understanding and to continue to review information given today. Pt to call with questions as reviewed prn. P) As above Ja Bejarano MD - 05/16/2020 0930 EDT Cardiothoracic Surgery Consult Chief Complaint: Malfunctioning right atrial pacing lead Referring Physician: Dr. Tony Rosenberg History of Present Illness: I had the pleasure of seeing Tim Mera in evaluation for removal of the right atrial lead, possible laser lead extraction. As you know he is a pleasant 69-year-old male with past medical history significant for complete heart block status post permanent pacemaker placement in 2018, hyponatremia, alcohol abuse, hypertension, pulmonary disease but now presents with rightatrial malfunctioning lead. The patient underwent placement of dual-chamber pacemaker in 2018, whichwas complicated by pericardial effusion and need to reposition the right atrial lead. The patient has been recently experiencing as what he described electric shocks and discomfort from his permanentpacemaker. He otherwise denies having any problems with his incision. He was recently evaluated by Dr. Rosenberg who interrogated the device, and there was noted significant artifact on the atrial intracardiac electrogram. Given these findings, it was felt that explantation of right atrial lead will be re commended, and given the chronicity of the lead, laser lead extraction would be performed. Mr. Mera now comes into our cardiac surgical clinic to undergo evaluation for candidacy of right atrial leadremoval, possible laser extraction. Past Medical History: Obesity, hypertension, complete heart block, pericarditis, hyponatremia, alcohol abuse, pulmonary disease Past Surgical History: Placement of an pacemaker, with subsequent repositioning Family History: No family history on file. Social History: Social History Socioeconomic History ??? Marital status: [...] file Gets together: Not on file Attends mormon service: Not on file Active member of [...] Social History Narrative ??? Not on file Medications: Current Outpatient Medications Medication ??? acetaminophen (TYLENOL) 500 mg tablet ??? colchicine (COLCRYS) 0.6 mg tablet ??? ibuprofen (MOTRIN) 200 mg tablet ??? metoprolol (LOPRESSOR) 25 mg tablet ??? omeprazole (PRILOSEC) 20 mg capsule ??? predniSONE (DELTASONE) 10 mg tablet ??? predniSONE (DELTASONE) 20 mg tablet ??? torsemide (DEMADEX) 20 mg tablet No current facility-administered medications for this visit. Allergies: Patient has no known allergies. ROS: He states he has baseline shortness of breath. He uses a cane for ambulation, presents in a wheelchair. Aside from what is listed in the History of Present Illness, a complete Review of Systems has been performed and is otherwise negative. OBJECTIVE: VS: Blood pressure (!) 160/90, pulse 68, temperature 36.4 ??C (97.6 ??F), temperature source Tympanic, resp. rate 18, SpO2 95 %. Gen: NAD, WDWN heavyset elderly male who appears deconditioned HEENT: EOMI, MMM, neck soft Chest: No obvious chest wall deformities. His left infraclavicular incision is intact, without any swelling or erythema. There is tenderness to touch and palpation of the generalized left anterior chest wall area. CV: RRR Pulm: non-labored respirations Abd/GI: Soft, NT Skin/Ext: Soft, warm, well perfused, minimal edema, Neuro: Neurologically grossly intact Psych: Alert and oriented, cooperative with the physical exam and interview Labs: Lab Results Component Value Date/Time WBC 4.4 01/15/2020 06:16 HGB 11.3 (L) 01/15/2020 06:16 HCT 31.2 (L) 01/15/2020 06:16 PLT 204 06/16/2017 05:39 NA 130 (L) 01/17/2020 07:50 K 3.7 01/17/2020 07:50 CL 95 (L) 01/17/2020 07:50 CO2 27.4 01/17/2020 07:50 BUN 10 01/17/2020 07:50 CREATININE 0.67 06/16/2017 05:39 STS Prediction Calculation ASSESSMENT/PLAN: 69-year-old male with past medical history significant for complete heart block status post permanent pacemaker placement in 2018, which was complicated by perforation and repositioning of right atriallead, pericarditis, hyponatremia, alcohol abuse, hypertension, pulmonary disease who now presents with right atrial malfunctioning lead and pain. After evaluation by Dr. Rosenberg right atrial lead explantation has been recommended, with possible use of laser, with reimplantation of new right atrial lead. Given his clinical presentation, the patient would be an appropriate candidate to undergo left infraclavicular pocket exploration, with explantation of right atrial lead with laser, and placement of a new right atrial lead. I discussed with the patient the surgical procedure in detail, including risks, benefits, alternatives of surgery, including the risks of infection, bleeding, risk of perforation, injury to adjacent structures, risks of anesthesia, and mortality. The patient understands everything and is agreeable with undergoing the procedure. The patient will receive his preoperative diagnostic studies and evaluation, including laboratory assessment and chest x-ray. We will coordinate with Dr. Rosenberg and schedule the patient for his upcoming lead explantation. Thank you for giving me the opportunity to help participate in the care this patient, should you have any further questions please do not hesitate to give me a call. Thank you. Ja Browne MD Cardiothoracic Surgery [phone] (office) 05/16/2020 10:36 documented in this encounter Miscellaneous Notes Addendum Note - Ja Browne MD - 05/16/2020 0930 EDT Addended by: JA BROWNE on: 06/06/2020 11:27 Modules accepted: Orders documented in this encounter Plan of Treatment Not on filedocumented as of this encounter Results XR CHEST 2 VIEWS (05/16/2020 11:17 EDT) Anatomical Region Laterality Modality Computed Radiography Specimen Impressions [facility] - 05/16/2020 11:56 EDT 1. ??No significant change from prior. I have personally reviewed the images an d the above interpretation and agree with the findings. Narrative [facility] - 05/16/2020 11:56 EDT XR CHEST [...] Organization Address City/State/ZIP Code Phon e Number [facility] documented in this encounter Visit Diagnoses Diagnosis Displacement of electrode lead of cardia c pacemaker, initial encounter - Primary Displacement of electrode lead of cardia c pacemaker, initial encounter documented in this encounter Historical Medications This list may reflect changes made after this encounter. Medication Sig Dispensed Refills Start Date End Date omeprazole (PRILOSEC) 20 Take 20 mg by mouth 0 mg capsule daily. ibuprofen (MOTRIN) 200 mg Take 180 mg by mouth 0 tablet 2 times daily. added in this encounter Care Teams Communications Lead Relationship Specialty Start Date End Date Katia Mccallum PA-C PCP - General 05/02/[address] [place] [id number] documented as of this encounter
--- OUTSIDE RECORDS SUMMARY | 2021-10-24 18:17 | XMS_ITS | Encounter Summary ---
:1950 Author Organization [facility] Address [address] [place] [address] Care Team Providers Name Role Phone Katia Mccallum PA-C Primary Care Provider [phone] Reason for Visit Reason Onset Date Comments Other 06/13/2020 Encounter Details Date Type Department Care Team Description 06/13/2020 Telephone [facility] Cardiothoracic Cat Sutherland RN Other Surgery - [facility] s [address] [place] [address] Social History Tobacco Use Types Packs/Day Years [...] for surgery at 1210 on 06/26. His Rotary Furnace Tender with PCP is setting up his ride for [place] on 06/26 and for his COVID test that will need to be done 3-4 days prior to surgery. Patient verbalized understanding. I called the patient's Rotary Furnace Tender at [facility] at [phone] and left her a message (Maru Villalobos, TISH). She will be arranging his ride to [place] on [address] and for his COVID test. I have updated our RESPIRATORY DIRECTOR and Beulah FAIR CM at [facility] as well. documented in this encounter Plan of Treatment Not on filedocumented as of this encounter Visit Diagnoses Not on filedocumented in this encounter Care Teams Bridge Painter Relationship Specialty Start Date End Date Katia Mccallum PA-C PCP - General 05/02/[address] [place] [id number] documented as of this encounter
--- OUTSIDE RECORDS SUMMARY | 2021-10-24 18:18 | XMS_ITS | Encounter Summary ---
:1950 Author Organization [facility] Address [address] [place] [address] Care Team Providers Name Role Phone Katia Mccallum PA-C Primary Care Provider [phone] Encounter Details Date Type Department Care Team Description 07/19/[address] [facility] - Vick [place]on Only [facility] [address] [place] [phone] Social History Tobacco Use Types Packs/Day Years [...] 07/19/2018 18:30 Results for this PANEL,RANDOM - [facility] EDT procedure are in the results section. COMPLETE BLOOD COUNT Routine 07/19/2018 18:30 Res ults for this AND DIFFERENTIAL EDT procedure a re in the results section. POCT GLUCOSE Routine 07/19/2018 18:21 Results for this (NURSING) - [facility] EDT procedure ar e in the results section. documented in this encounter Results (ABNORMAL) COMPLETE BLOOD COUNT AND DIFFERENTIAL (07/19/2018 18:30 EDT) Pathologist Sig nature WBC 8.1 4.0 - 10.5 [facility] RBC 3.65 (L) 4.70 - 6.00 [facility] Hemoglobin 12.5 (L) 13.5 - 18.0 [facility] HCT 34.2 (L) 42.0 - 52.0 [facility] MCV 93.7 78 - 100 [facility] MCH 34.2 (H) 27 - 31 [facility] MCHC 36.5 (H) 32 - 36 [facility] RDW-CV - [facility] 12.4 11.5 - 14.0 [facility] PLATELET COUNT - [facility] 158 150 - 450 [facility] NEUTROPHILS % (AUTO) - 63.5 42.0 - 75.0 [facility] LYMPHOCYTES % (AUTO) - 22.6 16.0 - 52.0 [facility] MONOCYTES % (AUTO) - 9.6 1.0 - 11.0 [facility] EOSINOPHILS % (AUTO) - 2.9 0.0 - 7.0 [facility] BASOPHILS % (AUTO) - 0.7 0.0 - 4.0 [facility] NUCLEATED RBC % (AUTO) 0.0 <1 [facility] NEUTROPHILS # (AUTO) - 5.2 1.5 - 6.6 [facility] LYMPHOCYTES # (AUTO) - 1.8 1.0 - 3.5 [facility] MONOCYTES # (AUTO) - 0.8 <1.0 [facility] EOSINOPHILS # (AUTO) - 0.2 <0.7 [facility] BASOPHILS # (AUTO) - 0.1 <0.1 [facility] NUCLEATED RBC # (AUTO) 0.00 <1 [facility] Specimen Performing Organization Address [facility] Code Phon e Number [facility] [address] [place] [address] [facility] (ABNORMAL) BASIC METABOLIC PANEL,RANDOM - [facility] (07/19/2018 18:30 EDT) Pathologist Sig nature Sodium 120 (L) 136 - 145 [facility] Potassium 4.4 3.5 - 5.1 [facility] Chloride 83 (L) 96 - 107 [facility] CO2 Total 24.6 21 - 32 [facility] Anion Gap 13.4 [facility] BUN 8 7 - 25 [facility] Creatinine 0.67 (L) 0.7 - 1.30 [facility] Estimated GFR >60 >60 [facility] Comment: [facility] EGFR UNITS: mL/min/1.73 m 2 CKD-EPI Equation used to calculate. Glucose 78 70 - 180 [facility] Calcium 8.2 (L) 8.5 - 10.5 [facility] Specimen Performing Organization Address [facility] Code Phon e Number [facility] [address] [place] [address] [facility] POCT GLUCOSE (NURSING) - [facility] (07/19/2018 18:21 EDT) Pathologist Sig nature POC CAPILLARY GLUCOSE - 86 70 - 100 [facility] Specimen Performing Organization Address [facility] Phon e Number [facility] [address] [place] [address] [facility] documented in this encounter Visit Diagnoses Not on filedocumented in this encounter Care Teams Digital Asset Manager Relationship Specialty Start Date End Date Katia Mccallum PA-C PCP - General 05/02/[address] [place] [id number] documented as of this encounter
--- OUTSIDE RECORDS SUMMARY | 2021-10-24 18:18 | XMS_ITS | Encounter Summary ---
:1950 Author Organization [facility] Address [address] [place] [address] Care Team Providers Name Role Phone Katia Mccallum PA-C Primary Care Provider [phone] Encounter Details Date Type Department Care Team Description 12/12/2018 Results Only [facility] - Candelaria Vila MD [facility] [address] [place] [id number] [address], [place] [address] (Wo rk) Social History Tobacco [...] BILIRUBIN - PMC 0.40 0.00 - 1.00 [facility] mg/dl CENTER [facility] DIRECT BILIRUBIN - PMC 0.10 0.00 - 0.30 [facility] mg/dl [facility]ENTER [facility] INDIRECT BILIRUBIN - 0.30 0.00 - 0.80 [facility] PMC mg/dl [facility]ENTER [facility] AST 68 (H) 15 - 37 U/L [facility] ALT 53 12 - 78 U/L [facility] Alkaline Phosphatase 98 46 - 116 U/L [facility] Total Protein 7.4 6.4 - 8.2 g/dl [facility] Albumin 3.0 (L) 3.4 - 5.0 g/dl [facility] GLOBULIN - PMC 4.4 g/dl [facility] ALBUMIN/GLOBULIN RATIO 0.6 [facility] Specimen Performing Organization Address City/State/ZIP Code Phon e Number [facility] [address] [place] [address] [facility] PROCALCITONIN - PMC (12/12/2018 22:16 EDT) Procalcitonin <0.05 <0.50 ng/mL [facility] Comment: CENTER LAB Concentration of < 0.5 [...] occur without infection. Specimen Performing Organization Address [facility] [address] [place] [address] LAB (ABNORMAL) BNP - PMC (12/12/2018 22:15 EDT) Pathologist [facility] B-TYPE NATRIURETIC 123 (H) <100 pg/mL [facility] PEPTIDE - [facility] LAB Specimen Performing Organization Address [facility] [address] [place] [address] LAB TROPONIN I (12/12/2018 22:06 EDT) Pathologist [facility] Troponin I (ng/mL) <0.05 <0.10 ng/ml [facility] Comment: CENTER LAB REFERENCE RANGE: Negative: ? <0.10 ng/mL Indeterminate: 0.10-0.80 ng/mL Positive: ? >0.80 ng/mL ........................................... The results of this assay can be falsely decreased due to the consumption of Biotin. Specimen Performing Organization Address [facility] [address] [place] [address] LAB (ABNORMAL) BASIC METABOLIC PANEL,RANDOM - PMC (12/12/2018 22:06 EDT) Sodium 120 (L) 136 - 145 [facility] mEq/L [facility] Potassium 4.6 3.5 - 5.1 [facility] mEq/L [facility] Chloride 86 (L) 96 - 107 [facility] mEq/L [facility] CO2 Total 25.2 21 - 32 mEq/L [facility] Anion Gap 8.8 mEq/L [facility] BUN 7 7 - 25 mg/dl [facility] Creatinine 0.61 (L) 0.7 - 1.30 [facility] mg/dl CENTER LAB Estimated GFR >60 >60 [facility] Comment: CENTER LAB EGFR UNITS: mL/min/1.73 m 2 CKD-EPI Equation used to calculate. GLUCOSE,RANDOM - 89 70 - 180 [facility] PMC mg/dl [place] [facility] Calcium 8.1 (L) 8.5 - 10.5 [facility] mg/dl [place] [facility] Specimen Performing Organization Address City/State/[facility] Code Phon e Number [facility] [address] [place] [address] [facility] documented in this encounter Visit Diagnoses Not on filedocumented in this encounter Care Teams Public Welfare Director Relationship Specialty Start Date End Date Katia Mccallum PA-C PCP - General 05/02/[address] [place] [address] documented as of this encounter
--- OUTSIDE RECORDS SUMMARY | 2021-10-24 18:18 | XMS_ITS | Encounter Summary ---
:1950 Author Organization [facility] Address [address] [place] [address] Care Team Providers Name Role Phone Katia Mccallum PA-C Primary Care Provider [phone] Reason for Visit Reason Onset Date Comments Other 05/29/2017 Encounter Details Date Type Department Care Team Description 05/29/2017 Telephone [facility] Cardiology - Melly Mariee RN Other Chaitanya Oconnor [place], [place] [address] Social History Tobacco Use [...] Encounter - Daija Mariee RN - 05/29/2017 1053 EDT Let pt know that I talked [...] 1018 EDT Spoke with nurse Yessica at [facility] She spoke with pt today and he had 2 episodes of sharp pains that lasted seconds at the pacemaker site Yessica- RN would like a call back with plan She states pt has had a 11# weight gain, denies shortness of breath Daughter in law takes care of meds- [phone] Spoke with pt- he had 2 quick [...] on filedocumented in this encounter Care Teams Search Engine Marketing Specialist Relationship Specialty Start Date End Date Katia Mccallum PA-C PCP - General 05/02/[address] [place] [id number] documented as of this encounter
--- OUTSIDE RECORDS SUMMARY | 2021-10-24 18:18 | XMS_ITS | Encounter Summary ---
:1950 Author Organization [facility] Address [address] [place] [address] Care Team Providers Name Role Phone Katia Mccallum PA-C Primary Care Provider [phone] Encounter Details Date Type Department Care Team Description 06/11/2017 Results Only Imaging [facility] Alan Pratt MD Adult Primary Care - [address] [place] [id number] [place], [place] [address] [phone] Social History Tobacco Use Types Packs/Day Years [...] Name Priority Date/Time Associated Diagnosis Comme nts OUTSIDE IMAGES ? 06/11/2017 13:57 Results for thi s ECHO IMAGES EDT procedure are i n the results section. documented in this encounter Results OUTSIDE IMAGES ??? ECHO IMAGES (06/11/2017 13:57 EDT) Anatomical Region Laterality Modality Other Specimen Narrative OP CARDIOLOGY - 06/11/2017 13:57 EDT This is an outside study - there is no r eport. Procedure Note PROFESSOR OF FORESTRY, IMAGING - 06/13/2017 This is an outside study - there is no r eport. Performing Organization Address City/State/ZIP Code Phon e Number OP CARDIOLOGY documented in this encounter Visit Diagnoses Not on filedocumented in this encounter Care Teams District Administrative Assistant Relationship Specialty Start Date End Date Katia Mccallum PA-C PCP - General 05/02/17 [address] [place] [id number] documented as of this encounter
--- OUTSIDE RECORDS SUMMARY | 2021-10-24 18:18 | XMS_ITS | Encounter Summary ---
:1950 Author Organization [facility] Address [address] [place] [address] Care Team Providers Name Role Phone Katia Mccallum PA-C Primary Care Provider [phone] Encounter Details Date Type Department Care Team Description 08/20/2018 Historical Results [facility] - Katia Mccallum Only [facility] [address] [facility] [address] [place] [address] [phone] Social History Tobacco Use Types Packs/Day Years [...] 11:48 Results fo r this COMBO,FASTING - [facility] EDT procedur e are in the results section. documented in this encounter Results (ABNORMAL) HEPATIC & CMP COMBO,FASTING - PMC (08/20/2018 11:48 EDT) Sodium 121 (L) 136 - 145 [facility] Potassium 4.7 3.5 - 5.1 [facility] Chloride 87 (L) 96 - 107 [facility] CO2 Total 28.2 21 - 32 [facility] Anion Gap 5.8 [facility] BUN 7 7 - 25 [facility] Creatinine 0.59 (L) 0.7 - 1.30 [facility] Estimated GFR >60 >60 [facility] Comment: CENTER LAB EGFR UNITS: mL/min/1.73 m 2 CKD-EPI Equation used to calculate. Glucose 88 FASTIN-99 [facility] Calcium 8.6 8.5 - 10.5 [facility] CALCIUM,CORRECTED - 9.0 8.5 - 10.5 [facility] BILIRUBIN - [facility] 0.60 0.00 - 1.00 [facility] AST 41 (H) 15 - 37 [facility] ALT 47 12 - 78 [facility] Alkaline Phosphatase 86 46 - 116 [facility] Total Protein 7.5 6.4 - 8.2 [facility] Albumin 3.5 3.4 - 5.0 [facility] GLOBULIN - [facility] 4.0 [facility] ALBUMIN/GLOBULIN 0.8 [facility] RATIO - [facility] CENTER LAB Specimen Performing Organization Address City/State/ZIP Code Phon e Number [facility] [address] [place] [address] [facility] documented in this encounter Visit Diagnoses Not on filedocumented in this encounter Care Teams Pr Internship Relationship Specialty Start Date End Date Katia Mccallum PA-C PCP - General 05/02/17 [address] [place] [id number] documented as of this encounter
--- OUTSIDE RECORDS SUMMARY | 2021-10-24 18:18 | XMS_ITS | Encounter Summary ---
:1950 Author Organization [facility] Address [address] [place] [address] Care Team Providers Name Role Phone Katia Mccallum PA-C Primary Care Provider [phone] Encounter Details Date Type Department Care Team [...] on filedocumented in this encounter Care Teams Mixer Operator Hot Metal Relationship Specialty Start Date End Date Katia Mccallum PA-C PCP - General 05/02/17 [address] [place], [place] [id number] documented as of this encounter
--- OUTSIDE RECORDS SUMMARY | 2021-10-24 18:18 | XMS_ITS | Encounter Summary ---
:1950 Author Organization [facility] Address [address] [place] [address] Care Team Providers Name Role Phone Katia Mccallum PA-C Primary Care Provider [phone] Reason for Referral Consult (Routine) - New Request Specialty Diagnoses / Procedures Referred By Contact Refer red To Contact Diagnoses Heart failure, unspecified HF chronicity, unspecified heart failure type (HCC- CMS) (HCC) Subacute effusive constrictive pericarditis Michael Pratt MD [facility] [place] [address] Referral ID Status Reason Start Expiration Visits Visits Date Date Requested Authorized [id number] New Request Specialty 06/16/2017 1 1 Services Required Question Answer Reason for Request: f/u constrictive pericarditi s Expected Discharge Date (Inpatient Only): 06/16/2017 Practice Site (External Referral Only): [facility] Comments With Dr. Torres ollow Up (3 - 10 Business Days) - Receiving Office to Obtain Authorization Specialty Diagnoses / Procedures Referred By Contact Refer red To Contact Diagnoses Heart failure, unspecified HF chronicity, unspecified heart failure type (HCC- CMS) (HCC) Subacute effusive constrictive pericarditis Bg tAwood MD [address] [facility] Level [address] [place] [address] Referral ID Status Reason Start Expiration Visits Visits Date Date Requested Authorized [id number] Receiving Office Continuity of 1 1 to [...] Subacute effusive constrictive pericarditis Bg Atwood, - [address] [facility] [address] [facility] [address] [address] [place] [address] Referral ID Status Reason Start Expiration Visits Visits Date Date Requested Authorized [id number] New Request Specialty 06/16/2017 1 1 Services Required Question Answer I certify that this patient is under my 06/16/2017 care and that I, or another Medicare allowed practitioner (DO CHAMP, PACHECO) working with me, had a pzay-bn-jeni encounter with this patient on this date: I further certify that the jcmk-tk-jzwn Yes encounter was in whole or in [...] taxing effort: Skilled Care Requested Nursing asessment correction assessment needed related Response to new or changed medication to this encounter: Expected Discharge Date (Inpatient Only): 06/16/2017 Encounter Details Date Type Department Care Team Description 06/12/2017 - [facility] Nithya Rand MD [address] [address] Heart failure, unspecified HF chronicity , unspecified heart failure type (HCC-CMS) (Primary Dx); 06/16/2017 Encounter Cardiac/Telemetry Bg Atwood MD [address] [address] Subacute effusive constrictive pericardi tis Unit Tony Rosenberg MD [address] [place] [address] [address] [place] [address] [place] [id number] Social History Tobacco Use Types Packs/Day Years [...] unspecified HF chronicity, unspecified heart failure type ([facility]) 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 Heart failure ([facility]) 06/12/2017 Resolved Hospital Problems Diagnosis Date Noted [...] orthopnea on a follow up exam at [facility]. He was transferred to [facility] due to concern for subacute constrictive [...] Component Value Units Date/Time Bacterial Culture/Smear, Fluid [[id number]] Collected: 06/13/17 0826 Lab Status: Preliminary result Specimen: FOSMIC from Pleural Fluid Updated: 06/15/17 07 Gram Smear Result Polys present No bacteria seen Result No growth Bacterial Culture, Blood [[id number]] Collected: 06/12/172246 Lab Status: In process Specimen: Blood Updated: 06/12/172320 Bacterial Culture, Blood [[id number]] Collected: 06/12/172239 Lab Status: In process Specimen: [...] 05/01/2017 Discharge Follow Up Appointments Scheduled with [facility] Upcoming Appointments Aug 06, 2017 15:20 EDT Follow Up Return with Tony Rosenberg MD [facility] Cardiology [facility] (--) [address] [place] [id number] Appointments Outside of [facility] We Will Schedule Follow-up appointments and procedures Amb Consult/Follow Up Cardiology With Dr. Torres Reason for Request: f/u constrictive pericarditis Expected Discharge Date (Inpatient Only): 06/16/2017 Practice Site (External Referral Only): [facility] Authorizing Provider: Michael Pratt MD Amb Consult/Follow Up Primary Care Physician Reason for Request: f/u hospitalization for constrictive pericarditis Expected Discharge Date (Inpatient Only): 06/16/2017 Authorizing Provider: Bg Atwood MD Home Health Agency-Other I certify that this patient is under my care and that I, or another Medicare authorized non-physician practitioner (PA or BARREL BRIDGE ASSEMBLER) or resident working with me, had a wsrm-qi-mway encounter with this patient on this date: 06/16/2017 I further certify that the rswc-wh-sayi encounter was in whole or in part related to the reason the patient needs home health care.: Yes The patient has had a rkqf-cy-omvv visit by me or one of my [...] and ambulation Skilled Care Requested: Nursing asessment correction assessment needed related to this encounter: Response to new or changed medication Expected Discharge Date (Inpatient Only): 06/16/2017 Authorizing Provider: Bg Atwood MD Additional Information: Please follow up at [facility] with Dr. Tony Rosenberg on August 06, 2017 at 3:20 pm. If you have questions please call [phone]. Please follow up with your primary care physician, Katia Mccallum, on June 17, 2017 at 10:45 am. If you have any questions please call [phone]. Studies We Will Schedule Appointments We Recommend but have not been Scheduled None Michael Pratt MD 06/16/2017 15:18 I evaluated the patient and agree with the discharge summary as outlined above by Dr. Pratt. Mr. Farfan was feeling much better today. 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 BG ATWOOD MD Attending Road Supervisor Of Engines [facility] documented in this encounter Discharge Instructions Desi Powers - 06/16/2017 12:01 EDT Please follow up at [facility] with Dr. Tony Rosenberg on August 06, 2017 at 3:20 pm. If you have questions please call [phone]. Please follow up with your primary care physician, Katia Mccallum, on June 17, 2017 at 10:45 am. If you have any questions please call [phone]. Discharge Instr - Other Melida Mas RN [...] through Care Everywhere. HEART FAILURE: AVOIDING TRIGGERS (OCCITAN)documented in this encounter Medications at Time of [...] Disposition Code Departure Means Destination Home-Health Care [facility] documented in this encounter Progress Notes Desi Villatoro, TISH - 06/16/2017 1657 EDT CM DISCHARGE NOTE: Pt was discharged home with Home Health Services. D/C Summary was faxed to his Resource Conservation Manager at Dr. Mccallum's office. Desi Villatoro RN [...] daily with taper in near future - LINEN CLERK torsemide 40mg daily Hypokalemia/Hypomagnesemia -replete as needed [...] catheterization for tomorrow. BG ATWOOD MD Attending Road Supervisor Of Engines [facility] - 06/14/2017 0646 EDT Cardiology [...] daily with taper in near future - LINEN CLERK torsemide 40mg daily Pleural Effusions: Associated with [...] not lie flat. BG ATWOOD MD Attending Road Supervisor Of Engines [facility] - 06/13/2017 1351 EDT Cardiology [...] into our system or repeat echo - LINEN CLERK torsemide 40mg daily - Medical management pending [...] appetite. 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 O/ wt-100.7 kg Prior wt-~108 kg(05/24/17) Ht-180.3 [...] to d/c. Magalis Berger RD, CD X/cover #[id number] meena Teixeira - 06/13/2017 1159 EDT Initial Case Management/Social Work Assessment and Discharge Plan/Readmission Risk Assessment REASON FOR ADMISSION: Heart failure ([facility]) Patient understands reason for admission: Yes PATIENT CONTACT INFO VERIFIED: Yes PATIENT ADDRESS VERIFIED: Yes (David is staying with his son Mo temporarily in [place]. He did not know the address) LIVING [...] his sons have been driving him) CULTURAL, MU-ISM and/or LANGUAGE factors affecting health care/discharge planning: [...] AID - [address] - [place], [place] - [address] [facility] [address] [facility] - [facility] [place] - [address] [facility] [address] [facility] [address] Home Health: [place] Other: Other (enter in comments) (he has a rn patient care through [facility]) POST HOSPITAL TRANSITION PLAN: Likely Dc to his son's house with continuation of HH RN services. He reports that he has only been drinking 1-2 beers/day. He denied any concern over his ETOH use. AMEENA TEIXEIRA 06/13/2017 11:59 For Ivelisse Rueda Desi Singh, TISH - 06/13/2017 0923 EDT 06/13: Received a call from Yessica Card at [facility]. She is the patient's Resource Conservation Manager. I've faxed patient's H&P to her and will keep her up to date on patient's progress and projected d/c. Yessica Card, Resource Conservation Manager P: [phone] ext [phone] F: [phone] Desi Villatoro RN [id number] Renetta Saenz RN - 06/13/2017 0823 [...] H&P Notes Denilson Shannon MD - 06/12/2017 8711 EDT Cardiology Admitting H&P Admit Date: 06/12/2017 [...] follow up performed by Dr. Rosenberg in [place] (has now completed 14 days of ibuprofen). After seeing Dr. Rosenberg yesterday and having an echo performed, he was noted to have worsening dyspnea, orthopnea, and increasing pleural effusions. He denies chest pain, diaphoresis, arm/jaw pain, wheezing, nausea/vomiting, change in bowels, or change in urination. He notes an ongoing cough with worsening abdominal pain from coughing so frequently. He was transferred to [facility] for consideration of thoracentesis and [...] tomorrow (either bedside or IR guided) - LINEN CLERK torsemide 40mg daily - NPO after midnight [...] Addendum 66 yo man who lives in [place] [facility] and follows with Dr. Rosenberg [...] - team attempted to obtain echo from [facility] however unable to do so until AM - if no other etiology found consider switching to colchicine + prednisone - blood cultures Denilson Shannon MD Home Visitor Pager [phone] 06/12/2017 21:56 Associated attestation - Bg Atwood [...] thoracentesis as well. BG ATWOOD MD Attending Road Supervisor Of Engines [facility] Procedure Notes Randy Ireland PA-C - 06/13/2017 0839 EDT IR Procedure Note Procedure: Requested U/S guided bilateral thoracentesis Date Performed: 06/13/2017 Radiologist/Maitre D(s):MD Andrea /MINGO Ireland Sedation/Anesthesia: local Time Out: A [...] independently without difficulty. Dischargehome orders received. Action: [facility] called and report given. They are familiar [...] with patient.Informed pt that he will have [facility] on Friday. R: Pt verbalized understanding [...] Care - Michelle Godinez RN - 06/13/2017 8109 EDT Problem: High Fall Risk: Goal: Patient [...] to room/call garza system. Admission database completed. child development instructor applied. Plan of care reviewed to include [...] nature Magnesium 1.9 1.7 - 2.8 mg/dl [facility] Specimen Blood specimen (specimen) - Blood Performing Organization Address City/State/ZIP Code Phon e Number [facility] [address] [place] [address] SERVICES (ABNORMAL) ELECTROLYTES (06/16/2017 5:39 EDT) Pathologist Sig nature Sodium 133 (L) 136 - 145 mEq/L [facility] Potassium 3.7 3.5 - 5.0 mEq/L [facility] Chloride 90 (L) 96 - 110 mEq/L [facility] ORY SERVICES CO2 33 (H) 22 - 32 mEq/L [facility] RY SERVICES Specimen Blood specimen (specimen) - Blood Performing Organization Address [facility] Phon e Number [facility] [address] [place] [address] SERVICES (ABNORMAL) HEMAGRAM (06/16/2017 5:39 EDT) Pathologist Sig nature WBC 10.81 (H) 4.0 - 10.4 K/cmm [facility] RBC 3.83 (L) 4.36 - 5.78 M/cmm [facility] Hemoglobin 12.4 (L) 13.8 - 17.3 gm/dl [facility] HCT 35.6 (L) 39.5 - 50.2 % [facility] MCV 93 81 - 95 fl [facility] MCH 32.4 27.6 - 33.0 pg [facility] MCHC 34.8 32.8 - 36.4 gm/dl [facility] RDW-CV 11.9 <14.2 % [facility] RDW-SD 40.8 <46.0 fl [facility] PLT 204 141 - 377 K/cmm [facility] MPV 12.4 9.5 - 12.7 fl [facility] Specimen Blood specimen (specimen) - Blood Performing Organization Address City/[facility]/ZIP Code Phon e Number [facility] [address] [place] [address] SERVICES CREATININE (06/16/2017 5:39 EDT) Creatinine 0.67 0.66 - 1.25 [facility] mg/dl LABORATORY SERVICES GFR, Calculated 100 >60 [facility] Comment: ml/min/1.73m2 LABORATORY eGFR calculated using CKD-EPI equation for SERVICES non Americans. Multiply eGFR by 1.16 for Americans. Specimen Blood specimen (specimen) - Blood Performing Organization Address City/[facility]/ZIP Code Phon e Number [facility] [address] [place] [address] SERVICES MAGNESIUM (06/15/2017 5:31 EDT) Pathologist Sig nature Magnesium 1.7 1.7 - 2.8 mg/dl [facility] Specimen Blood specimen (specimen) - Blood Performing Organization Address [facility]/ZIP [facility] Phon e Number [facility] [address] [place] [address] SERVICES (ABNORMAL) ELECTROLYTES (06/15/2017 5:31 EDT) Pathologist Sig nature Sodium 133 (L) 136 - 145 mEq/L [facility] Potassium 3.4 (L) 3.5 - 5.0 mEq/L [facility] Chloride 90 (L) 96 - 110 mEq/L [facility] ORY SERVICES CO2 34 (H) 22 - 32 mEq/L [facility] Specimen Blood specimen (specimen) - Blood Performing Organization Address City/[facility]/ZIP Code Phon e Number [facility] [address] [place] [address] SERVICES (ABNORMAL) HEMAGRAM (06/15/2017 5:31 EDT) Pathologist Sig nature WBC 11.63 (H) 4.0 - 10.4 K/cmm [facility] RBC 3.51 (L) 4.36 - 5.78 M/cmm [facility] Hemoglobin 11.4 (L) 13.8 - 17.3 gm/dl [facility] HCT 33.1 (L) 39.5 - 50.2 % [facility] MCV 94 81 - 95 fl [facility] MCH 32.5 27.6 - 33.0 pg [facility] MCHC 34.4 32.8 - 36.4 gm/dl [facility] SERVICES RDW-CV 12.0 <14.2 % [facility] RDW-SD 41.4 <46.0 fl [facility] PLT 240 141 - 377 K/cmm [facility] MPV 11.1 9.5 - 12.7 fl [facility] Specimen Blood specimen (specimen) - Blood Performing Organization Address City/[facility]/ZIP Code Phon e Number [facility] [address] [place] [address] SERVICES (ABNORMAL) CREATININE (06/15/2017 5:31 EDT) Creatinine 0.65 (L) 0.66 - 1.25 [facility] mg/dl LABORATORY SERVICES GFR, Calculated 101 >60 [facility] Comment: ml/min/1.73m2 LABORATORY eGFR calculated using CKD-EPI equation for SERVICES non Americans. Multiply eGFR by 1.16 for Americans. Specimen Blood specimen (specimen) - Blood Performing Organization Address City/[facility] Phon e Number [facility] [address] [place] [address] SERVICES INPATIENT ADD-ON (06/14/2017 8:00 EDT) Tests to be added PLEASE ADD ON [facility] DIFFERENTIAL TO CBC LABORATORY SERVICES Number for [id number] [facility] problems LABORATORY SERVICES Accession number [id number] [facility] Specimen Other Performing Organization Address [facility] Phon e Number [facility] [address] [place] [address] SERVICES (ABNORMAL) DIFFERENTIAL (06/14/2017 5:32 EDT) Pathologist Sig nature Neutrophils 72.2 % [facility] Lymphocytes 14.9 % [facility] Monocytes 12.1 % [facility] Eosinophils 0.1 % [facility] Basophils 0.2 % [facility] Immature Grans 0.5 % [facility] ABS Neutrophils 8.96 (H) 2.20 - 8.85 [facility] K/cm LABORATORY SERVICES ABS Lymphs 1.85 1.09 - 3.30 [facility] K/cmm LABORATORY SERVICES ABS Monocytes 1.50 (H) 0.1 - 0.8 K/cmm [facility] ABS Eosinophils 0.01 (L) 0.03 - 0.61 [facility] K/cmm LABORATORY SERVICES ABS Basophils 0.02 0.01 - 0.11 [facility] K/cmm LABORATORY SERVICES ABS Immature Grans 0.06 0 - 0.06 K/cmm [facility] SERVICES Type of Diff: Automated [facility] SERVICES Specimen Blood Performing Organization Address [facility]/ZIP Code Phon e Number [facility] [address] [place] [address] SERVICES MAGNESIUM (06/14/2017 5:32 EDT) Pathologist Sig nature Magnesium 2.0 1.7 - 2.8 mg/dl [facility] Specimen Blood specimen (specimen) - Blood Performing Organization Address [facility] Phon e Number [facility] [address] [place] [address] SERVICES (ABNORMAL) ELECTROLYTES (06/14/2017 5:32 EDT) Pathologist Sig nature Sodium 133 (L) 136 - 145 mEq/L [facility] Potassium 3.6 3.5 - 5.0 mEq/L [facility] Chloride 91 (L) 96 - 110 mEq/L [facility] ORY SERVICES CO2 31 22 - 32 mEq/L [facility] SERVICES Specimen Blood specimen (specimen) - Blood Performing Organization Address [facility]/ZIP [facility] Phon e Number [facility] [address] [place] [address] SERVICES (ABNORMAL) HEMAGRAM (06/14/2017 5:32 EDT) Pathologist Sig nature WBC 12.41 (H) 4.0 - 10.4 K/cmm [facility] SERVICES RBC 3.64 (L) 4.36 - 5.78 M/cmm [facility] SERVICES Hemoglobin 11.9 (L) 13.8 - 17.3 gm/dl [facility] SERVICES HCT 33.8 (L) 39.5 - 50.2 % [facility] SERVICES MCV 93 81 - 95 fl [facility] SERVICES MCH 32.7 27.6 - 33.0 pg [facility] SERVICES MCHC 35.2 32.8 - 36.4 gm/dl [facility] SERVICES RDW-CV 11.9 <14.2 % [facility] SERVICES RDW-SD 40.7 <46.0 fl [facility] SERVICES PLT 243 141 - 377 K/cmm [facility] SERVICES MPV 11.7 9.5 - 12.7 fl [facility] SERVICES Specimen Blood specimen (specimen) - Blood Performing Organization Address [facility] Phon e Number [facility] [address] [place] [address] SERVICES (ABNORMAL) CREATININE (06/14/2017 5:32 EDT) Creatinine 0.60 (L) 0.66 - 1.25 [facility] mg/dl LABORATORY SERVICES GFR, Calculated 105 >60 [facility] Comment: ml/min/1.73m2 LABORATORY eGFR calculated using CKD-EPI equation for SERVICES non Americans. Multiply eGFR by 1.16 for Americans. Specimen Blood specimen (specimen) - Blood Performing Organization Address [facility] Phon e Number [facility] [address] [place] [address] SERVICES INPATIENT ADD-ON (06/13/2017 15:00 EDT) Tests to be added PLEASE ADD ON [facility] HEMATOCRIT TO LABORATORY SERVICES PLEURAL FLUID OBTAINED TODAY (06/13). [place] [id number] [facility] problems LABORATORY SERVICES Accession number [id number]: [facility] Corrected on 06/13 LABORATORY SERVICES AT 1515: Previously reported as [id number] Specimen Other Performing Organization Address [facility] Phon e Number [facility] [address] [place] [address] SERVICES INPATIENT ADD-ON (06/13/2017 15:00 EDT) Tests to be added TOTAL PROTEIN,LDH [facility] [place] [id number] [facility] problems LABORATORY SERVICES Accession number [id number]: [facility] Corrected on 06/13 LABORATORY SERVICES AT 1502: Previously reported as [id number] Specimen Other Performing Organization Address [facility] Phon e Number [facility] [address] [place] [address] CHEST (PE) PROTOCOL W CONTRAST (06/13/2017 10:41 EDT) Anatomical Region Laterality Modality Other Specimen Narrative [facility] - 06/13/2017 11:23 EDT [...] Organization Address City/State/ZIP Code Phon e Number [facility] RAD US DOPPLER LOWER EXTREMITY VENOUS BILATERAL (06/13/2017 10:20 EDT) Anatomical Region Laterality Modality Other Specimen Narrative [facility] - 06/13/2017 11:50 EDT [...] Organization Address City/State/ZIP Code Phon e Number [facility] IR THORACENTESIS (06/13/2017 8:45 EDT) Anatomical Region Laterality Modality Other Specimen Narrative [facility] - 06/13/2017 10:51 EDT [...] sterile technique and under local anesthesia, a 8-[place] Island[place] thoracentesis catheter was advanced into the left [...] sterile technique and under local anesthesia, a 8-[place] Island[place] thoracentesis catheter was advanced into the left [...] the lab for analysis. Performing Organization Address [facility]/ZIP Code Phon e Number [facility] HEMATOCRIT, BODY FLUID (06/13/2017 8:26 EDT) Pathologist Sig nature Hematocrit,Body Fld <3.0 % [facility] SERVICES Specimen Pleural Fluid Performing Organization Address [facility] Phon e Number [facility] [address] [place] [address] SERVICES FLUID DIFFERENTIAL (06/13/2017 8:26 EDT) Neutrophils, Fluid 33 % [facility] SERVICES Lymphocytes, Fluid 50 % [facility] [place]/Macro, Fluid 12 % [facility] SERVICES Mesothelial 5 % [facility] Fluid Comment Rev'd by [facility] Pathologist LABORATORY SERVICES Specimen Pleural Fluid Performing Organization Address [facility] Phon e Number [facility] LABORATORY [address] [place] [address] SERVICES PH, PLEURAL FLUID (06/13/2017 8:26 EDT) Pleural Fluid pH 7.42 [facility] Comment: LABORATORY SERVICES Reference range: Pleural fluid Exudate: 7.30-7.45 Transudate: 7.40-7.55 A pleural fluid pH <7.30 is generally associated with a complicated parapneumonic effusion, empyema, connective tissue disease of the pleura or malignant effusion. Specimen Pleural Fluid Performing Organization Address [facility] Phon e Number [facility] LABORATORY [address] [place] [address] SERVICES BACTERIAL CULTURE/SMEAR, FLUID (06/13/2017 8:26 EDT) Gram Smear Result Polys [facility] present LABORATORY SERVICES Gram Smear Result No bacteria seen [facility] LABORATORY SERVICES Result No growth [facility] LABORATORY SERVICES Specimen FOSMIC - Pleural Fluid Performing Organization Address City/State/ZIP Code Phon e Number [facility] LABORATORY [address] [place] [address] SERVICES FLUID CELL COUNT (06/13/2017 8:26 EDT) RBC, Fluid 44,000 /cmm [facility] LABORATORY SERVICES Nucleated Cells 11,202 /cmm [facility] LABORATORY SERVICES Fluid Comment MODERATELY BLOODY, [facility] MODERATELY CLOUDY LABORATORY SERVICES Specimen Body fluid (substance) - Pleural Fluid Performing Organization Address City/[facility]/ZIP Code Phon e Number [facility] LABORATORY [address] [place] [address] SERVICES TOTAL PROTEIN, FLUID (06/13/2017 8:26 EDT) Protein, Fluid 5.2 g/dl [facility] Comment: LABORATORY SERVICES Reference Range: Pleural fluid specimen (specimen) Exudate > 3.0 g/dl Pleural fluid specimen (specimen) Transudate <3.0 g/dl Peritoneal fluid sample (specimen) Serum ascites to albumin gradient (SAGG) superior to total protein content in differentiating causes of effusion. Pleural fluid specimen (specimen) Specimen FOSCH - Pleural Fluid Performing Organization Address City/[facility]/ZIP Code Phon e Number [facility] LABORATORY [address] [place] [address] SERVICES LDH, FLUID (06/13/2017 8:26 EDT) Pathologist Sig nature LDH, Fluid 654 U/L [facility] Comment: LABORATORY SERVICES Pleural fluid specimen (specimen) Reference Range: Suggestive of exudate if fluid cholesterol is > 45 mg/dl or fluid LDH is greater than 0.45 times the upper limit of normal serum LDH levels. Peritoneal fluid sample (specimen) No reference range available Pleural fluid specimen (specimen) Specimen FOSCH - Pleural Fluid Performing Organization Address City/[facility]/ZIP Code Phon e Number [facility] LABORATORY [address] [place] [address] SERVICES GLUCOSE, FLUID (06/13/2017 8:26 EDT) Glucose, Fluid 88 mg/dl [facility] Comment: LABORATORY SERVICES Reference Range: Pleural fluid specimen (specimen) Low glucose is accepted as <60 mg/dl or pleural fluid to serum glucose ratio of <0.5. Peritoneal fluid sample (specimen) Low glucose is generally accepted as <50 mg/dl. Pleural fluid specimen (specimen) Specimen FOSCH - Pleural Fluid Performing Organization Address [facility] Phon e Number [facility] LABORATORY [address] [place] [address] SERVICES CREATININE, FLUID (06/13/2017 8:26 EDT) Creatinine, Fluid 0.57 mg/dl [facility] Comment: LABORATORY SERVICES Reference Range: Pleural fluid specimen (specimen) No reference range available Peritoneal fluid sample (specimen) No reference range available Drain device specimen (specimen) No reference range available Pleural fluid specimen (specimen) Specimen FOSCHM - Pleural Fluid Performing Organization Address [facility] e Number [facility] LABORATORY [address] [place] [address] SERVICES PROTEIN, TOTAL (06/13/2017 6:08 EDT) Pathologist Sig nature Total Protein 7.2 6.3 - 8.2 g/dl [facility] LABORATORY SERVICES Specimen Blood Performing Organization Address [facility] Phon e [facility] LABORATORY [address] [place] [address] SERVICES LDH (06/13/2017 6:08 EDT) Pathologist Sig nature LDH 428 313 - 618 U/L [facility] LABORATO RY SERVICES Specimen Blood Performing Organization Address [facility] Phon e [facility] LABORATORY [address] [place] [address] SERVICES (ABNORMAL) MAGNESIUM (06/13/2017 6:08 EDT) Pathologist Sig nature Magnesium 1.4 (L) 1.7 - 2.8 mg/dl [facility] LABORA TORY SERVICES Specimen Blood specimen (specimen) - Blood Performing Organization Address [facility] e [facility] LABORATORY [address] [place] [address] SERVICES (ABNORMAL) ELECTROLYTES (06/13/2017 6:08 EDT) Pathologist Sig nature Sodium 132 (L) 136 - 145 mEq/L [facility] LABORA TORY SERVICES Potassium 3.6 3.5 - 5.0 mEq/L [facility] LABORA TORY SERVICES Chloride 91 (L) 96 - 110 mEq/L [facility] LABORAT ORY SERVICES CO2 29 22 - 32 mEq/L [facility] LABORATO RY SERVICES Specimen Blood specimen (specimen) - Blood Performing Organization Address City/State/ZIP Code Phon e Number [facility] LABORATORY [address] [place] [address] SERVICES (ABNORMAL) HEMAGRAM (06/13/2017 6:08 EDT) Pathologist Sig nature WBC 9.97 4.0 - 10.4 K/cmm [facility] LABORATORY SERVICES RBC 3.76 (L) 4.36 - 5.78 M/cmm [facility] LABORATORY SERVICES Hemoglobin 12.2 (L) 13.8 - 17.3 gm/dl [facility] LABORATORY SERVICES HCT 34.9 (L) 39.5 - 50.2 % [facility] LABORATORY SERVICES MCV 93 81 - 95 fl [facility] LABORATORY SERVICES MCH 32.4 27.6 - 33.0 pg [facility] LABORATORY SERVICES MCHC 35.0 32.8 - 36.4 gm/dl [facility] LABORATORY SERVICES RDW-CV 11.8 <14.2 % [facility] LABORATORY SERVICES RDW-SD 40.4 <46.0 fl [facility] LABORATORY SERVICES PLT 223 141 - 377 K/[facility] LABORATORY SERVICES MPV 11.9 9.5 - 12.7 fl [facility] LABORATORY SERVICES Specimen Blood specimen (specimen) - Blood Performing Organization Address City/State/ZIP Code Phon e Number [facility] LABORATORY [address] [place] [address] SERVICES (ABNORMAL) CREATININE (06/13/2017 6:08 EDT) Creatinine 0.58 (L) 0.66 - 1.25 [facility] mg/dl LABORATORY SERVICES GFR, Calculated 106 >60 [facility] Comment: ml/min/1.73m2 LABORATORY eGFR calculated using CKD-EPI equation for SERVICES non Americans. Multiply eGFR by 1.16 for Americans. Specimen Blood specimen (specimen) - Blood Performing Organization Address City/State/ZIP Code Phon e Number [facility] LABORATORY [address] [place] [address] SERVICES (ABNORMAL) PROTIME (06/13/2017 6:08 EDT) Pro Time 14.0 (H)Comment: NOTE 10.3 - 13.4 [facility] NEW REFERENCE RANGE secs LABORATORY SERVICE S OF APR 03 2017 I.N.R. 1.2 (H) 0.9 - 1.1 [facility] Comment: Ratio LABORATORY SERVICES Moderate Intensity Coumadin INR = 2.0-3.0 Adjustments in anticoagulant therapy dose should be based upon the INR and NOT the Pro Time. Specimen Blood specimen (specimen) - Blood Performing Organization Address [facility] Phon e Number [facility] LABORATORY [address] [place] [address] SERVICES BACTERIAL CULTURE, BLOOD (06/12/2017 22:47 EDT) Pathologist Sig nature Result No growth [facility] LABORATOR Y SERVICES Specimen Blood specimen (specimen) - Blood Performing Organization Address [facility] Phon e Number [facility] LABORATORY [address] [place] [address] SERVICES (ABNORMAL) D-DIMER (06/12/2017 22:40 EDT) Pathologist Sig nature D-Dimer 724 (H) <230 ng/mL [facility] Comment: LABORATORY SERVICES CUTOFF VALUE FOR THE EXCLUSION OF DVT and PE: 230 ng/m L D-dimer units Any use of the age-adjusted cutoff value is a post-analytic modification of this FDA-approved test and is considered off-label use of the test result. [facility] laboratory does not have literature to support the validity of an age-adjusted cutoff for our specific assay. Specimen Blood specimen (specimen) - Blood Performing Organization Address [facility] Phon e Number [facility] LABORATORY [address] [place] [address] SERVICES BACTERIAL CULTURE, BLOOD (06/12/2017 22:40 EDT) Pathologist Sig nature Result No growth [facility] LABORATOR Y SERVICES Specimen Blood specimen (specimen) - Blood Performing Organization Address [facility] Phon e Number [facility] LABORATORY [address] [place] [address] SERVICES INPATIENT ADD-ON (06/12/2017 21:30 EDT) Pathologist Sig nature Tests to be added NT PRO BNP [facility] LABORATORY SERVICES Number for problems Not Given [facility] LABORATORY SERVICES Accession number [id number] [facility] LABORATORY SERVICES Specimen Other Performing Organization Address [facility] Phon e Number [facility] LABORATORY [address] [place] [address] SERVICES CHEST PA AND LATERAL (06/12/2017 20:56 EDT) Anatomical Region Laterality Modality Other Specimen Narrative [facility] - 06/12/2017 21:12 EDT [...] Organization Address City/State/ZIP Code Phon e Number [facility] INPATIENT ADD-ON (06/12/2017 19:20 EDT) Tests to be added HIGH SENSITIVITY CRP [facility] [place] [id number] [facility] problems LABORATORY SERVICES Accession number [id number] [facility] LABORATORY SERVICES Specimen Other Performing Organization Address City/State/ZIP Code Phon e Number [facility] LABORATORY [address] [place] [address] SERVICES (ABNORMAL) NT PRO BNP (06/12/2017 18:37 EDT) Pathologist Sig nature NT Pro BNP 1,380 (H) <300 pg/ml [facility] Comment: LABORATORY SERVICES Reference Range: NT-proBNP values [...] congestive failure. Specimen Blood Performing Organization Address City/[facility]/ZIP [facility] [place] e Number [facility] LABORATORY [address] [place] [address] SERVICES HIGH SENSITIVITY C-REACTIVE PROTEIN (CARDIOVASCULAR DISEASE) (06/12/2017 18:37 EDT) High Sensitivity 83.3 mg/L [facility] CRP Comment: LABORATORY Reference Range: SERVICES <1.0 mg/L Low risk 1.0-3.0 mg/L Average risk >3.0 mg/L High risk >10.0 mg/L Acute inflammation Specimen Blood Performing Organization Address City/State/ZIP Code Phon e Number [facility] LABORATORY [address] [place] [address] SERVICES TROPONIN I (06/12/2017 18:37 EDT) Pathologist Sig nature Troponin I (ng/mL) <0.034 <0.034 ng/ml [facility] LABORATORY SERVICES Specimen Blood specimen (specimen) - Blood Performing Organization Address City/[facility]/ZIP [facility] Phon e Number [facility] LABORATORY [address] [place] [address] SERVICES (ABNORMAL) HEMAGRAM (06/12/2017 18:37 EDT) Pathologist Sig nature WBC 17.10 (H) 4.0 - 10.4 K/cmm [facility] LABORATORY SERVICES RBC 3.70 (L) 4.36 - 5.78 M/cmm [facility] LABORATORY SERVICES Hemoglobin 12.2 (L) 13.8 - 17.3 gm/dl [facility] LABORATORY SERVICES HCT 34.1 (L) 39.5 - 50.2 % [facility] LABORATORY SERVICES MCV 92 81 - 95 fl [facility] LABORATORY SERVICES MCH 33.0 27.6 - 33.0 pg [facility] LABORATORY SERVICES MCHC 35.8 32.8 - 36.4 gm/dl [facility] LABORATORY SERVICES RDW-CV 11.6 <14.2 % [facility] LABORATORY SERVICES RDW-SD 39.4 <46.0 fl [facility] LABORATORY SERVICES PLT 206 141 - 377 K/cmm [facility] LABORATORY SERVICES MPV 12.3 9.5 - 12.7 fl [facility] LABORATORY SERVICES Specimen Blood specimen (specimen) - Blood Performing Organization Address [facility]/ZIP Code Phon e Number [facility] LABORATORY [address] [place] [address] SERVICES BUN (06/12/2017 18:37 EDT) Pathologist Sig nature BUN 10 10 - 26 mg/dl [facility] LABORATO RY SERVICES Specimen Blood specimen (specimen) - Blood Performing Organization Address [facility] Phon e Number [facility] LABORATORY [address] [place] [address] SERVICES (ABNORMAL) ELECTROLYTES (06/12/2017 18:37 EDT) Pathologist Sig nature Sodium 129 (L) 136 - 145 mEq/L [facility] LABORA TORY SERVICES Potassium 3.4 (L) 3.5 - 5.0 mEq/L [facility] LABORA TORY SERVICES Chloride 91 (L) 96 - 110 mEq/L [facility] LABORAT ORY SERVICES CO2 27 22 - 32 mEq/L [facility] LABORATO RY SERVICES Specimen Blood specimen (specimen) - Blood Performing Organization Address [facility] Phon e Number [facility] LABORATORY [address] [place] [address] SERVICES (ABNORMAL) CREATININE (06/12/2017 18:37 EDT) Creatinine 0.54 (L) 0.66 - 1.25 [facility] mg/dl LABORATORY SERVICES GFR, Calculated 109 >60 [facility] Comment: ml/min/1.73m2 LABORATORY eGFR calculated using CKD-EPI equation for SERVICES non Americans. Multiply eGFR by 1.16 for Americans. Specimen Blood specimen (specimen) - Blood Performing Organization Address [facility]/ZIP [facility] Phon e Number [facility] LABORATORY [address] [place] [address] SERVICES EKG 12-LEAD (06/12/2017 18:27 EDT) Specimen Narrative [facility] EKG - 06/29/2017 15:5 7 EDT ? [facility] ? Test Date: ?2017-06-12 Pat Name: ? DAVID FARFAN ?Department: ?? Subha Chao ? Room: ? ME505 Gender: ? Male ? Inclusion Internship: ?? [id number] : ?1950 ? Requested By: GISELA Dunn Order Number: [id number] ? Reading MD: ?? SENG PERSON SA MD ? Measurements Intervals ?[place] ? Rate: ? 120 ?P: ?165 OR: ? 235 ?QRS: ?-22 QRSD: ? 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 Heart failure, unspecified HF chronicity , unspecified heart failure type (HCC-CMS) ([facility]) documented in this encounter Administered Medications Inactive [...] 40 mEq 40 mEq 40 mEq, oral, Once (NO Time Specified), 1 dose, Starting on [place]urel 06/12/17 at 2000, Until Fri06/12/17 at 2004, Routine potassium chloride SA (K-DUR, [...] 06/15/2017 06/16/2017 colchicine (COLCRYS) tablet 0.6 mg 09 (Given - Provi jinny: Mila Mcallister RN)2103 (Given - Provider: Mila Mcallister RN) 08 (Given - Provider: Omayra Farley RN)203 (Given - Provider: Diamond Manzano RN) 0802 (Given - Provider: Omayra Farley, TISH) 0.6 mg, oral, 2 TIMES DAILY, First [...] Patient/family refused)1506 (Not Given - Provider: Omayra Farley, TISH - Reason: Other - Comment: to be dc'd home, ambulating frequently ) 5,000 Units, subcutaneous, EVERY 8 HOURS , First dose on Fri06/13/17 at 0000, Until Discontinued, Routine magnesium sulfate 2 g in water 50 mL (COMPLETED) 0859 (Given - Provider: Omayra Farley, TISH - Comment: 1.7) 2 g, intravenous, Administer over 30 Min utes, NOW X1, 1 dose, 06/15/17 at 0845, Routine metoprolol (LOPRESSOR) tablet 25 mg 1050 (Given - Prov ider: Mila Mcallister RN)2104 (Given - Provider: Mila Mcallister RN) 0858 (Given - Provider: Omayra Farley RN)203 (Given - Provider: Diamond Manzano, TISH) 0802 (Given - Provider: Omayra Farley RN) 25 mg, oral, 2 TIMES DAILY, First dose o n 06/14/17 at 1045, Until Discontinued, Routine potassium chloride SA (K-DUR, KLOR-CON) tablet 40 mEq (COMPL ETED) 0859 (Given - Provider: Omayra Farley RN - Comment: 3.4) 40 mEq, oral, NOW X1, 1 dose, Lorraine 06/15/17 at 0845, Routine potassium chloride SA [...] Farley RN) 0017 (Given - Provider: Diamond Manzano RN)0802 (Given - Provider: Omayra Farley RN)1506 (Not Given - Provider: Omayra Farley RN - Reason: Other - Comment: discharge orders) 3 mL, intravenous, EVERY 8 HOURS, First dose on Laurel 06/12/17 at 1815, Until Discontinued, Routine torsemide (DEMADEX) tablet 40 mg 0920 (Given - Provide r: Mila Mcallister RN) 0853 (Given - Provider: Omayra Farley RN) 0803 (Gi tabatha - Provider: Omayra Farley RN) [...] Administered potassium, sodium phosphates (PHOS-NAK) 2 06/17/19 18 280-160-250 mg packet 8 mmol fentaNYL citrate [...] 1 06/12/2017 MEASURE WEIGHT 1 06/12/2017 NOTIFY [facility] SERVICES SPECIALIST 1 06/12/2017 VTE PHARMACOLOGIC PROPHYLAXIS CURRENTLY 1 [...] 06/16/2017 documented in this encounter Care Teams Concrete Finisher Apprentice Relationship Specialty Start Date End Date Katia Mccallum PA-C PCP - General 05/02/[address] [place] [id number] documented as of this encounter
--- OUTSIDE RECORDS SUMMARY | 2021-10-24 18:18 | XMS_ITS | Encounter Summary ---
:1950 Author Organization [facility] Address [address] [place] [address] Care Team Providers Name Role Phone Katia Mccallum PA-C Primary Care Provider [phone] Reason for Visit Reason Comments Arrhythmia Encounter Details Date Type Department Care Team Description 10/13/2019 Office Visit [facility] Tony Rosenberg, Heart block AV third Cardiology - Nicolasa OAKES degree ([facility]) [address] (Primary Dx) [place] [address] Suite [facility] [phone] [place] [address] Social History Tobacco Use Types [...] file Gets together: Not on file Attends rastafari service: Not on file Active member of [...] complete documented in this encounter Care Teams Trail Maintenance Worker Relationship Specialty Start Date End Date Katia Mccallum PA-C PCP - General 05/02/[address] [place] [id number] documented as of this encounter
--- OUTSIDE RECORDS SUMMARY | 2021-10-24 18:18 | XMS_ITS | Encounter Summary ---
:1950 Author Organization [facility] Address [address] [place] [address] Care Team Providers Name Role Phone Katia Mccallum PA-C Primary Care Provider [phone] Encounter Details Date Type Department Care Team Description 06/25/2018 Historical Results [facility] - Maicol Crespo MD Only [facility] 160 [facility],1ST FLOOR [address] [place] [address] [place], [place] [address] [place] [address] [phone] Social History Tobacco Use Types Packs/Day Years [...] procedure are i n the results section. GERMAN PLANTAIN, Routine 06/25/2018 18:50 Result s for [...] (06/25/2018 18:50 EDT) CRISTO WELCH, IGE <0.35 [facility] - PMC Comment: CENTER LAB Class 0 (Negative <0.35) Test Performed by: [address] [id number] Specimen Performing Organization Address [facility] Phon e Number [facility] LAB [address] [place] [id number] [place] [address] LAB GERMAN PLANTNICO, IGE - PMC (06/25/2018 18:50 EDT) ENGLISH MAXWELL, <0.35 [facility] Comment: CENTER LAB Class 0 (Negative <0.35) Test Performed by: [address] [id number] Specimen Performing Organization Address City/[facility] Phon e Number [facility] [address] [place] [phone] [place] [address] LAB HOUSE DUST MITES/D.P., IGE - PMC (06/25/2018 18:50 EDT) HOUSE DUST <0.35 [facility] MITES/D.P., IGE - Comment: CENTER LAB PMC Class 0 (Negative <0.35) Test Performed by: [address] [id number] Specimen Performing Organization Address City/[facility] Phon e Number [facility] [address] [place] [address] [facility] - [facility] (06/25/2018 18:50 EDT) ALTERNARIA TENUIS, <0.35Comment: Class [facility] - [facility] 0 (Negative <0.35) [facility] CLAD - PMC <0.35Comment: Class [facility] 0 (Negative <0.35) [facility] HOUSE DUST <0.35 [facility] MITE/D.F., IGE Comment: [facility] Class 0 (Negative <0.35) Test Performed by: [facility] - [facility] [address] [place] [address] CAT - PMC <0.35Comment: Class [facility] 0 (Negative <0.35) [facility] DOG DANDER, IGE - <0.35Comment: Class [facility] 0 (Negative <0.35) [facility] YAYA GRASS IGE - <0.35Comment: Class [facility] 0 (Negative <0.35) [facility] LAMBS QUARTER, IGE <0.35Comment: Class [facility] - [facility] 0 (Negative <0.35) [facility] OAK - PMC <0.35Comment: Class [facility] 0 (Negative <0.35) [facility] RAGWEED, SHORT, IGE <0.35Comment: Class [facility] - PM[facility] 0 (Negative <0.35) [facility] CONNER GRASS, IGE <0.35Comment: Class [facility] - PM[facility] 0 (Negative <0.35) [facility] Specimen Performing Organization Address City/State/ZIP Code Phon e Number [facility] [address] [place], [place] [phone] [place] [address] LAB (ABNORMAL) HEPATIC & CMP COMBO,FASTING - PMC (06/25/2018 18:50 EDT) Sodium 130 (L) 136 - 145 [facility] Potassium 4.3 3.5 - 5.1 [facility] Chloride 93 (L) 96 - 107 [facility] CO2 Total 26.4 21 - 32 [facility] Anion Gap 10.6 [facility] BUN 15 7 - 25 [facility] Creatinine 0.86 0.7 - 1.30 [facility] Estimated GFR >60 >60 [facility] Comment: CENTER LAB EGFR UNITS: mL/min/1.73 m 2 CKD-EPI Equation used to calculate. Glucose 89 FASTIN-99 [facility] LAB Calcium 8.6 8.5 - 10.5 [facility] CALCIUM,CORRECTED - 9.0 8.5 - 10.5 [facility] LAB BILIRUBIN - [facility] 0.30 0.00 - 1.00 [facility] AST 55 (H) 15 - 37 [facility] ALT 65 12 - 78 [facility] Alkaline Phosphatase 115 46 - 116 [facility] Total Protein 7.5 6.4 - 8.2 [facility] Albumin 3.5 3.4 - 5.0 [facility] GLOBULIN - [facility] 4.0 [facility] ALBUMIN/GLOBULIN 0.8 [facility] RATIO - [facility] LAB Specimen Performing Organization Address City/State/ZIP Code Phon e Number [facility] [address] [place] [address] [facility] documented in this encounter Visit Diagnoses Not on filedocumented in this encounter Care Teams Metal Shaping Machine Operator Relationship Specialty Start Date End Date Katia Mccallum PA-C PCP - General 05/02/[address] [place] [id number] documented as of this encounter
--- OUTSIDE RECORDS SUMMARY | 2021-10-24 18:18 | XMS_ITS | Encounter Summary ---
:1950 Author Organization [facility] Address [address] [place] [address] Care Team Providers Name Role Phone Katia Mccallum PA-C Primary Care Provider [phone] Encounter Details Date Type Department Care Team Description 06/12/2018 Historical Results [facility] - Katia Mccallum Only [facility] BELLA Rodas Lab [address] [facility] [place] [address] [place] [address] [phone] Social History Tobacco Use Types Packs/Day Years [...] EDT) Sodium 125 (L) 136 - 145 [facility] Potassium 5.0 3.5 - 5.1 [facility] Chloride 89 (L) 96 - 107 [facility] CO2 Total 28.7 21 - 32 [facility] Anion Gap 7.3 [facility] BUN 8 7 - 25 [facility] Creatinine 0.60 (L) 0.7 - 1.30 [facility] Estimated GFR >60 >60 [facility] Comment: CENTER LAB EGFR UNITS: mL/min/1.73 m 2 CKD-EPI Equation used to calculate. Glucose 84 70 - 180 [facility] Calcium 8.2 (L) 8.5 - 10.5 [facility] CALCIUM,CORRECTED - 8.7 8.5 - 10.5 [facility] BILIRUBIN - [facility] 0.30 0.00 - 1.00 [facility] AST 39 (H) 15 - 37 [facility] ALT 52 12 - 78 [facility] Alkaline Phosphatase 93 46 - 116 [facility] Total Protein 7.1 6.4 - 8.2 [facility] Albumin 3.4 3.4 - 5.0 [facility] GLOBULIN - PMC 3.7 [facility] ALBUMIN/GLOBULIN 0.9 [facility] RATIO - [facility] CENTER LAB Specimen Performing Organization Address City/State/ZIP Code Phon e Number [facility] [address] [place] [address] [facility] documented in this encounter Visit Diagnoses Not on filedocumented in this encounter Care Teams Stove Polisher Relationship Specialty Start Date End Date Katia Mccallum PA-C PCP - General 05/02/17 [address] [place], [place] [id number] documented as of this encounter
--- OUTSIDE RECORDS SUMMARY | 2021-10-24 18:18 | XMS_ITS | Encounter Summary ---
:1950 Author Organization [facility] Address [address] [place] [address] Care Team Providers Name Role Phone Katia Mccallum PA-C Primary Care Provider [phone] Encounter Details Date Type Department Care Team Description 05/28/2018 Historical Results [facility] - Yi, Haja Only [facility] MD Raulito Radiology Results [address] [place], [place] [address] [phone] Social History Tobacco Use Types Packs/Day Years [...] Procedure Name Priority Date/Time Associated Comments Diagnosis BNP Routine 05/28/2018 0:45 Results for this EDT procedure are i n the results section. HEPATIC & CMP Routine 05/28/2018 0:45 Results for this COMBO,FASTING - PMC EDT procedur e are in the results section. TROPONIN I Routine 05/28/2018 0:45 Results for this EDT procedure are i n the results section. COMPLETE BLOOD COUNT Routine 05/28/2018 0:45 Resu lts for this AND DIFFERENTIAL EDT procedure a re in the results section. XR CHEST 2 VIEWS 05/28/2018 0:11 Results for this EDT procedure are i n the results section. documented in this encounter Results (ABNORMAL) BNP - PMC (05/28/2018 0:45 EDT) Pathologist Sig nature B-TYPE NATRIURETIC 129 (H) <100 [facility] PEPTIDE - [facility] Specimen Performing Organization Address City/State/ZIP Code Phon e Number [facility] [address] [place] [address] [facility] (ABNORMAL) COMPLETE BLOOD COUNT AND DIFFERENTIAL (05/28/2018 0:45 EDT) Pathologist Sig nature WBC 10.2 4.0 - 10.5 [facility] RBC 3.77 (L) 4.70 - 6.00 [facility] Hemoglobin 12.7 (L) 13.5 - 18.0 [facility] HCT 35.3 (L) 42.0 - 52.0 [facility] MCV 93.6 78 - 100 [facility] MCH 33.7 (H) 27 - 31 [facility] MCHC 36.0 32 - 36 [facility] RDW-CV - PMC 12.0 11.5 - 14.0 [facility] PLATELET COUNT - [facility] 306 150 - 450 [facility] NEUTROPHILS % (AUTO) - 76.5 (H) 42.0 - 75.0 [facility] LYMPHOCYTES % (AUTO) - 14.0 (L) 16.0 - 52.0 [facility] MONOCYTES % (AUTO) - 7.9 1.0 - 11.0 [facility] EOSINOPHILS % (AUTO) - 0.2 0.0 - 7.0 [facility] BASOPHILS % (AUTO) - 0.2 0.0 - 4.0 [facility] NUCLEATED RBC % (AUTO) 0.0 <1 [facility] NEUTROPHILS # (AUTO) - 7.8 (H) 1.5 - 6.6 [facility] LYMPHOCYTES # (AUTO) - 1.4 1.0 - 3.5 [facility] MONOCYTES # (AUTO) - 0.8 <1.0 [facility] EOSINOPHILS # (AUTO) - 0.0 <0.7 [facility] BASOPHILS # (AUTO) - 0.0 <0.1 [facility] NUCLEATED RBC # (AUTO) 0.00 <1 [facility] Specimen Performing Organization Address [facility] Phon e Number [facility] [address] LAB TROPONIN I (05/28/2018 0:45 EDT) [facility] Troponin I (ng/mL) <0.05 <0.10 [facility] Comment: [place] [facility] REFERENCE RANGE: Negative: ? <0.10 ng/mL Indeterminate: 0.10-0.80 ng/mL Positive: ? >0.80 ng/mL ........................................... The results of this assay can be falsely decreased due to the consumption of Biotin. Specimen Performing Organization Address [facility] Phon e [facility] [address] LAB (ABNORMAL) HEPATIC & CMP COMBO,FASTING - PMC (05/28/2018 0:45 EDT) [facility] Sodium 120 (L) 136 - 145 [facility] Potassium 4.0 3.5 - 5.1 [facility] Chloride 83 (L) 96 - 107 [facility] CO2 Total 25.9 21 - 32 [facility] Anion Gap 11.1 [facility] BUN 6 (L) 7 - 25 [facility] Creatinine 0.60 (L) 0.7 - 1.30 [facility] Estimated GFR >60 >60 [facility] Comment: CENTER LAB EGFR UNITS: mL/min/1.73 m 2 CKD-EPI Equation used to calculate. Glucose 122 70 - 180 [facility] Calcium 9.1 8.5 - 10.5 [facility] CALCIUM,CORRECTED - 9.8 8.5 - 10.5 [facility] BILIRUBIN - PMC 0.30 0.00 - 1.00 [facility] AST 90 (H) 15 - 37 [facility] ALT 87 (H) 12 - 78 [facility] Alkaline Phosphatase 89 46 - 116 [facility] Total Protein 8.3 (H) 6.4 - 8.2 [facility] Albumin 3.1 (L) 3.4 - 5.0 [facility] GLOBULIN - PMC 5.2 [facility] ALBUMIN/GLOBULIN 0.5 [facility] RATIO - PMC CENTER LAB Specimen Performing Organization Address City/State/ZIP Code Phon e Number [facility] [address] [place] [address] [facility] XR CHEST 2 VIEWS (05/28/2018 0:11 EDT) Specimen Narrative [facility] - 2018 0:11 EDT [facility]: [facility] [address] [place], [place] [address] Diagnostic Imaging Report Signed Patient Name:DAVID FARFAN ? Date of :1950 ? MR Number:[id number] Age:67 ?Sex:M Category: CR ? Date of Exam:05/28/18 Procedure: CR: Chest; Frontal/LAT views ? Ordering Physician: Haja Richmond MD CC: Haja Richmond MD Provider, Optional EXAM: XR Chest, 2 Views EXAM DATE/TIME: 05/28/2018 12:11 AM CLINICAL HISTORY: 67 years old, male; Signs and symptoms; Cough and shortness of breath; Prior surgery; Surgery date: 6+ months; Surger y type: Pacemaker TECHNIQUE: Imaging protocol: XR of the chest, 2 vie ws. COMPARISON: No relevant prior studies available. FINDINGS: Lungs: ??The pulmonary catheter is withi n normal limits. The left lung is clear. There is right basilar airspace o pacity that may represent atelectasis and/or pneumonia. In addition, there is increased density along the lateral pleura on the right that may represent d iffuse thickening and/or pleural calcification. There is likely a small r ight pleural effusion. Pleural space: ??See Lungs Finding. Heart/Mediastinum: ??Left chest wall car diac pacer. The cardiomediastinal silhouette shows cardiac enlargement. Bones/joints: Unremarkable. IMPRESSION: Right basilar airspace opacity with smal l right pleural effusion, likely representing atelectasis and/or pneumoni a. In addition, there is linear density along the lateral right pleura that may represent pleural thickening and/or calcification, incompletely characterize d. If not previously obtained, a CT chest is recommended for further evaluat ion. Report signed by: Alma Sherwood On ??02:12:19 Dictated by: Alma Sherwood DO ? D/ 0011 Transcribed by: GABE ? D/T: E-Signed by: Alma Sherwood DO ? D/ 021 Procedure Note Alma Sherwood MD - [facility] [place] [id number] Diagnostic Imaging Report Signed Patient Name:DAVID FARFAN r:[id number] Date of :1950 MR Number:[id number] Age:67 Sex:M Category: CR Date of Exam:05/28/18 Procedure: CR: Chest; Frontal/LAT views Ordering Physician: Haja Richmond MD CC: Haja Richmond MD Provider, Optional EXAM: XR Chest, 2 Views EXAM DATE/TIME: 05/28/2018 12:11 AM CLINICAL HISTORY: 67 years old, male; Signs and symptoms; Cough and shortness of breath; Prior surgery; Surgery date: 6+ months; Surger y type: Pacemaker TECHNIQUE: Imaging protocol: XR of the chest, 2 vie ws. COMPARISON: No relevant prior studies available. FINDINGS: Lungs: The pulmonary catheter is within normal limits. The left lung is clear. There is right basilar airspace o pacity that may represent atelectasis and/or pneumonia. In addition, there is increased density along the lateral pleura on the right that may represent d iffuse thickening and/or pleural calcification. There is likely a small r ight pleural effusion. Pleural space: See Lungs Finding. Heart/Mediastinum: Left chest wall cardi ac pacer. The cardiomediastinal silhouette shows cardiac enlargement. Bones/joints: Unremarkable. IMPRESSION: Right basilar airspace opacity with smal l right pleural effusion, likely representing atelectasis and/or pneumoni a. In addition, there is linear density along the lateral right pleura that may represent pleural thickening and/or calcification, incompletely characterize d. If not previously obtained, a CT chest is recommended for further evaluat ion. Report signed by: Alma Sherwood On 02:12:19 Dictated by: Alma Sherwood DO D/T: 0011 Transcribed by: GABE D/T: E-Signed by: Alma Sherwood DO D/T: 0212 Performing Organization Address City/State/ZIP Code Phon e Number [facility] documented in this encounter Visit Diagnoses Not on filedocumented in this encounter Care Teams Supervisor [employer] Relationship Specialty Start Date End Date Katia Mccallum PA-C PCP - General 05/02/17 [address] [place] [id number] documented as of this encounter
--- OUTSIDE RECORDS SUMMARY | 2021-10-24 18:18 | XMS_ITS | Encounter Summary ---
:1950 Author Organization [facility] Address [address] [place] [address] Care Team Providers Name Role Phone Katia Mccallum PA-C Primary Care Provider [phone] Encounter Details Date Type Department Care Team Description 06/18/2018 Historical Results [facility] - Katia Mccallum Only [facility] BELLA Rodas Lab [address] [facility] [place] [facility] [place] [address] [place] [address] [phone] Social History Tobacco Use Types Packs/Day Years [...] 12:14 Results fo r this COMBO,FASTING - [facility] EDT procedur e are in the results section. documented in this encounter Results (ABNORMAL) HEPATIC & CMP COMBO,FASTING - PMC (06/18/2018 12:14 EDT) Sodium 125 (L) 136 - 145 [facility] Potassium 4.9 3.5 - 5.1 [facility] Chloride 88 (L) 96 - 107 [facility] CO2 Total 27.6 21 - 32 [facility] Anion Gap 8.4 [facility] BUN 8 7 - 25 [facility] Creatinine 0.69 (L) 0.7 - 1.30 [facility] Estimated GFR >60 >60 [facility] Comment: CENTER LAB EGFR UNITS: mL/min/1.73 m 2 CKD-EPI Equation used to calculate. Glucose 86 FASTIN-99 [facility] Calcium 8.4 (L) 8.5 - 10.5 [facility] CALCIUM,CORRECTED - 8.9 8.5 - 10.5 [facility] BILIRUBIN - [facility] 0.60 0.00 - 1.00 [facility] AST 63 (H) 15 - 37 [facility] ALT 58 12 - 78 [facility] Alkaline Phosphatase 94 46 - 116 [facility] Total Protein 7.3 6.4 - 8.2 [facility] Albumin 3.4 3.4 - 5.0 [facility] GLOBULIN - PMC 3.9 [facility] ALBUMIN/GLOBULIN 0.8 [facility] RATIO - [facility] C[facility] LAB Specimen Performing Organization Address City/State/ZIP Code Phon e Number [facility] [address] [place] [address] [facility] documented in this encounter Visit Diagnoses Not on filedocumented in this encounter Care Teams Clinical Rehab Specialist Relationship Specialty Start Date End Date Katia Mccallum PA-C PCP - General 05/02/[address] [facility] [place] [place] [id number] documented as of this encounter
--- OUTSIDE RECORDS SUMMARY | 2021-10-24 18:18 | XMS_ITS | Encounter Summary ---
:1950 Author Organization [facility] Address [address] [place] [address] Care Team Providers Name Role Phone Katia Mccallum PA-C Primary Care Provider [phone] Reason for Visit Reason Onset Date Comments Update 06/12/2017 on admission to [facility] Encounter Details Date Type Department Care Team Description 06/12/2017 Telephone [facility] Yariel Rosenberg MD Update (on admission to Cardiology - [address]) [address] [facility] [address] [place], [place] [address] [place] [address], [place] [address] Social History Tobacco Use Types Packs/Day [...] EDT [facility] ele[facility] Encounter - Belinda Falk [...] 1000 EDT LMTCB. Telephone Encounter - Andra Gonázles V. - 06/12/2017 0924 EDT Reason for Call: Update (on admission to [facility]) Summary/Symptoms: Yessica would like to speak to the nurse regarding this patient being admitted to [facility] today at Dr. Paola Gonzáles 06/12/2017 9:24 documented in this encounter Plan of Treatment Not on filedocumented as of this encounter Visit Diagnoses Not on filedocumented in this encounter Care Teams Travel Registered Nurse Pacu Relationship Specialty Start Date End Date Katia Mccallum PA-C PCP - General 05/02/[address] [place] [id number] documented as of this encounter
--- OUTSIDE RECORDS SUMMARY | 2021-10-24 18:18 | XMS_ITS | Encounter Summary ---
:1950 Author Organization [facility] Address [address] [place] [address] Care Team Providers Name Role Phone Katia Mccallum PA-C Primary Care Provider [phone] Reason for Visit Reason Onset Date Comments Coordination Of Care 11/12/2019 Encounter Details Date Type Department Care Team Description 11/12/2019 Telephone [facility] - Chaitanya Trevino RN [address] [place], [place] [address] Social History Tobacco Use [...] RN - 11/12/2019 1036 EDT An from [employer] calling in to report that patient has had fallen 3 times yesterday. documented in this encounter Plan of Treatment Not on filedocumented as of this encounter Visit Diagnoses Not on filedocumented in this encounter Care Teams Stoner Hand Relationship Specialty Start Date End Date Katia Mccallum PA-C PCP - General 05/02/[address] [place] [id number] documented as of this encounter
--- OUTSIDE RECORDS SUMMARY | 2021-10-24 18:18 | XMS_ITS | Encounter Summary ---
:1950 Author Organization [facility] Address [address] [place] [address] Care Team Providers Name Role Phone Katia Mccallum PA-C Primary Care Provider [phone] Reason for Visit Reason Onset Date Comments Labs Only 07/22/2017 from 07/16 Encounter Details Date Type Department Care Team Description 07/22/2017 Telephone [facility] Yariel Rosenberg MD Labs Only (from 07/16) Cardiology - [facility] [address] [facility] [address] [facility] [address] [place], [place] [address] [place] [address] (Wo rk) Social History Tobacco Use [...] call office back with call back number [phone]. Telephone Encounter - Belinda Falk RN - 07/23/2017 1054 EDT Call received from Yessica with questions on when patient's follow-up appointment was with Dr. Rosenberg, where the labwork needed to be sent to, and in put from cardiology. Provided Yessica the provider access line for PCP to discuss patient's care with Dr. Rosenberg. Also discussed with Yessica since patient is seen in [facility] records are not accessible to our office(labs, and outside office notes). Yessica to review with PCP and formulate coordination of care with [facility]. Telephone Encounter - Belinda Falk RN - 07/22/2017 1500 EDT Call placed to Yessica regarding Tim Mera unable to reach patient by phone. Message left on voice mail to call office back with call back number [phone]. Telephone Encounter - Morena Lux - 07/22/2017 1456 EDT Yessica from [facility] Regarding patients labs from 07/16 Has anyone addressed them Please call to advise documented in this encounter Plan of Treatment Not on filedocumented as of this encounter Visit Diagnoses Not on filedocumented in this encounter Care Teams Tube Room Supervisor Relationship Specialty Start Date End Date Katia Mccallum PA-C PCP - General 05/02/[address] [place] [id number] documented as of this encounter
--- OUTSIDE RECORDS SUMMARY | 2021-10-24 18:18 | XMS_ITS | Encounter Summary ---
:1950 Author Organization [facility] Address [address] [place] [address] Care Team Providers Name Role Phone Katia Mccallum PA-C Primary Care Provider [phone] Reason for Visit Reason Onset Date Comments Other 07/16/2017 Encounter Details Date Type Department Care Team Description 07/16/2017 Telephone [facility] Caitie Atwood NP Other Cardiology - [address] [address] [place], [place] [address] (Wo rk) Social History [...] Encounter - Caitie Atwood NP - 07/16/2017 1248 EDT I spoke to the morning caregiver at the [place] primary care offices. There following the patient. [...] on filedocumented in this encounter Care Teams Anatomy Teacher Relationship Specialty Start Date End Date Katia Mccallum PA-C PCP - General 05/02/17 [address] [place] [id number] documented as of this encounter
--- OUTSIDE RECORDS SUMMARY | 2021-10-24 18:18 | XMS_ITS | Encounter Summary ---
:1950 Author Organization [facility] Address [address] [place] [address] Care Team Providers Name Role Phone Katia Mccallum PA-C Primary Care Provider [phone] Encounter Details Date Type Department Care Team Description 12/12/[address] [facility] - Candelaria Vila MD [facility] [address] [place] [address] [address], [place] [address] (Wo rk) Social History Tobacco [...] nature WBC 10.1 4.0 - 10.[address] LAB RBC 3.85 (L) 4.70 - 6.[address] LAB Hemoglobin 13.1 (L) 13.5 - 18.0 [facility] g/dL [facility] LAB HCT 36.1 (L) 42.0 - 52.0 % [facility] MCV 93.8 78 - 100 fL [facility] MCH 34.0 (H) 27 - 31 pg [facility] MCHC 36.3 (H) 32 - 36 g/dL [facility] RDW-CV - PMC 11.9 11.5 - 14.0 % [facility] PLATELET COUNT - [facility] 208 150 - [address] LAB NEUTROPHILS % (AUTO) 52.5 42.0 - 75.0 % [facility] LYMPHOCYTES % (AUTO) 32.3 16.0 - 52.0 % [facility] MONOCYTES % (AUTO) - 7.8 1.0 - 11.0 % [facility] EOSINOPHILS % (AUTO) 5.5 0.0 - 7.0 % [facility] BASOPHILS % (AUTO) - 1.4 0.0 - 4.0 % [facility] NUCLEATED RBC % 0.0 <1 % [facility] (AUTO) [facility] LAB NEUTROPHILS # (AUTO) 5.3 1.5 - 6.[address] LAB LYMPHOCYTES # (AUTO) 3.3 1.0 - 3.[address] LAB MONOCYTES # (AUTO) - 0.8 <1.0 10 3[facility] LAB EOSINOPHILS # (AUTO) 0.6 <0.7 10 3/[facility] BASOPHILS # (AUTO) - 0.1 <0.1 10 3/uL [facility] NUCLEATED RBC # 0.00 <1 10 3/uL [facility] (AUTO) - [facility] LAB Specimen Performing Organization Address City/State/ZIP Code Phon e Number [facility] [address] [place] [address] [facility] documented in this encounter Visit Diagnoses Not on filedocumented in this encounter Care Teams Senior Net Software Engineer Relationship Specialty Start Date End Date Katia Mccallum PA-C PCP - General 05/02/[address] [place] [address] documented as of this encounter
--- OUTSIDE RECORDS SUMMARY | 2021-10-24 18:18 | XMS_ITS | Encounter Summary ---
:[address] [facility] Address [address] [place] [address] Care Team Providers Name Role Phone Katia Mccallum PA-C Primary Care Provider [phone] Encounter Details Date Type Department Care Team Description 01/13/2020 Results Only [facility] - [address], Provider, [place] [facility] [address] [place], [place] [id number] Social History Tobacco Use Types Packs/Day Years [...] Sodium 120 (L) 136 - 145 mEq/L [facility] Specimen [facility] - 01/13/2020 2 2:26 EST Sample collected by ED but method of collection (IV Start or venipuncture) not indicated on sample. Performing Organization Address City/[facility] Code Phon e Number [facility] [address] [place] [address] TROPONIN I (01/13/2020 7:15 EST) Troponin I <0.050 0 - 0.056 [facility] (ng/mL) Comment: ng/ml [facility] [...] due to the consumption of Biotin. Specimen [facility] - 01/13/2020 7 :54 [...] Standards H3-A5, page 21) Performing Organization Address [facility] Phon e [facility] [address] [place] [address] (ABNORMAL) SODIUM (01/13/2020 7:15 EST) Pathologist Sig nature Sodium 120 (L) 136 - 145 mEq/L [facility] Specimen [facility] - 01/13/2020 7 :54 [...] Standards H3-A5, page 21) Performing Organization Address [facility] Phon e [facility] [address] [place] [address] OSMOLALITY,S PMC TEMP (01/13/2020 5:42 EST) [facility] OSMOLALITY,S 280 275 - 295 [facility] Comment: mOsm/kg [facility] Test Performed by: [address] [address] [employer] Eye Machine Operator: Pierre Andersen M.D. Ph.D.; CLIA# [id number]ative [facility] - 01/14/2020 1 8:37 EST Sample collected by ED but method of collection (IV Start or venipuncture) not indicated on sample. Performing Organization Address [facility] e Number [facility] [address] [place] [address] FOLATE (01/13/2020 5:42 EST) [facility] Folate 18.7 >8.6 ng/mL [facility] Specimen Performing Organization Address [facility] e [facility] [address] [place] [address] VITAMIN B12 (01/13/2020 5:42 EST) [facility] Vitamin B12 246 193 - 986 [facility] Comment: pg/mL [facility] The results of this assay can be falsely elevated due to the consumption of Biotin. Specimen Performing Organization Address [facility] e Number [facility] [address] [place] [address] (ABNORMAL) IRON,TIBC,FERRITIN GROUP - [facility] (01/13/2020 5:42 EST) [facility] nature Iron 178 (H) 65 - 175 mcg/dL [facility] Iron Binding 193 (L) 250 - 450 [facility] Capacity mcg/dL [facility] PERCENT IRON 92 (H) 14 - 50 % [facility] SATURATION - [facility] Ferritin >1000 (H) 26 - 388 ng/mL [facility] Specimen Performing Organization Address [facility] Phon e Number [facility] [address] [place] [address] PROTIME (01/13/2020 5:42 EST) [facility] Pro Time 11.1 9.0 - 12.3 [facility] SEC [facility] PROTHROMBIN TIME 1.1 0.8 - 1.2 [facility] WITH INR - [facility] Comment: RATIO [facility] Interpretive Information: Moderate [...] PT is prolonged for other reasons. Specimen [facility] - 01/13/2020 6 :48 EST Sample collected by ED but method of collection (IV Start or venipuncture) not indicated on sample. Performing Organization Address [facility] LAB [address] [place] [address] THYROID CASCADE (01/13/2020 5:42 EST) TSH 1.958 0.360 - 3.740 [facility] Comment: mIU/L [facility] Note: This is a Third Generation Assay .......................................... The results of this assay can be falsely decreased due to the consumption of Biotin. Specimen [facility] - 01/13/2020 6 :35 EST Sample collected by ED but method of collection (IV Start or venipuncture) not indicated on sample. Performing Organization Address [facility] LAB [address] [place] [address] (ABNORMAL) MAGNESIUM (01/13/2020 5:42 EST) Pathologist Sig nature Magnesium 1.4 (L) 1.8 - 2.4 mg/dl [facility] Specimen [facility] - 01/13/2020 6 :35 EST Sample collected by ED but method of collection (IV Start or venipuncture) not indicated on sample. Performing Organization Address [facility] e [facility] [address] [place] [address] (ABNORMAL) HEPATIC & CMP COMBO,FASTING - PMC (01/13/2020 5:42 EST) Sodium 121 (L) 136 - 145 [facility] mEq/L [facility] Potassium 4.1 3.5 - 5.1 [facility] mEq/L [facility] Chloride 87 (L) 96 - 107 [facility] mEq/L [facility] CO2 Total 25.5 21 - 32 mEq/L [facility] Anion Gap 8.5 mEq/L [facility] BUN 4 (L) 7 - 25 mg/dl [facility] Creatinine 0.60 (L) 0.70 - 1.30 [facility] mg/dl [facility] Estimated GFR >60 >60 [facility] Comment: [facility] EGFR UNITS: mL/min/1.73 m 2 CKD-EPI Equation used to calculate. Glucose 70 70 - 180 [facility] mg/dl [facility] Calcium 7.9 (L) 8.5 - 10.1 [facility] mg/dl [facility] CALCIUM,CORRECTED - 8.9 8.5 - 10.5 [facility] mg/dl [facility] BILIRUBIN - PMC 0.70 0.00 - 1.00 [facility] mg/dl [facility] AST 56 (H) 15 - 37 U/L [facility] ALT 38 16 - 63 U/L [facility] Alkaline Phosphatase 87 46 - 116 U/L [facility] Total Protein 6.8 6.4 - 8.2 [facility] g/dl [facility] Albumin 2.7 (L) 3.4 - 5.0 [facility] g/dl [facility] GLOBULIN - PMC 4.1 g/dl [facility] ALBUMIN/GLOBULIN 0.6 [facility] RATIO - [facility] Specimen Narrative [facility] - 01/13/2020 6 :35 EST Sample collected by ED but method of collection (IV Start or venipuncture) not indicated on sample. Performing Organization Address City/State/ZIP Code Phon e Number [facility] [address] [place] [address] (ABNORMAL) COMPLETE BLOOD COUNT AND DIFFERENTIAL (01/13/2020 5:42 EST) Pathologist Sig nature WBC 5.2 4.0 - 10.5 10 [facility] 3/uL [facility] RBC 3.24 (L) 4.70 - 6.00 10 [facility] 6/uL [facility] Hemoglobin 11.3 (L) 13.5 - 18.0 [facility] g/dL [facility] HCT 30.8 (L) 42.0 - 52.0 % [facility] MCV 95.1 78 - [address] [facility] MCH 34.9 (H) 27 - [address] [facility] MCHC 36.7 (H) 32 - 36 g/dL [facility] RDW-CV - [facility] 12.5 11.0 - 14.8 % [facility] PLATELET COUNT - [facility] 161 150 - 450 10 [facility] 3/[facility] LAB NEUTROPHILS % (AUTO) 52.1 42.0 - 75.0 % [facility] LYMPHOCYTES % (AUTO) 30.5 16.0 - 52.0 % [facility] MONOCYTES % (AUTO) - 13.8 (H) 1.0 - 11.0 % [facility] EOSINOPHILS % (AUTO) 1.7 0.0 - 7.0 % [facility] BASOPHILS % (AUTO) - 1.3 0.0 - 4.0 % [facility] NUCLEATED RBC % 0.0 <1 % [facility] (AUTO) [facility] LAB NEUTROPHILS # (AUTO) 2.7 1.5 - 6.6 10 [facility] 3/[facility] LAB LYMPHOCYTES # (AUTO) 1.6 1.0 - 3.[address] LAB MONOCYTES # (AUTO) - 0.7 <1.0 10 3/uL [facility] EOSINOPHILS # (AUTO) 0.1 <0.7 10 3/uL [facility] BASOPHILS # (AUTO) - 0.1 <0.1 10 3/uL [facility] NUCLEATED RBC # 0.00 <1 10 3/uL [facility] (AUTO) [facility] LAB Specimen Narrative [facility] - 01/13/2020 6 :48 EST Sample collected by ED but method of collection (IV Start or venipuncture) not indicated on sample. Performing Organization Address City/State/ZIP Code Phon e Number [facility] [address] [place] [address] OSMOLALITY, UR [facility] TEMP (01/13/2020 1:57 EST) Osmolality, Ur 239 150 - 1150 [facility] Comment: mOsm/kg [facility] Test Performed by: [facility] - [address] [address] [employer] Operator: Pierre Andersen M.D. Ph.D.; CLIA# [id number] Specimen Performing Organization Address [facility] Phon e Number [facility] [address] [place] [address] UA MICROSCOPIC - PMC (01/13/2020 1:57 EST) Pathologist Sig nature URINE RBC - PMC None Seen 0 - [address] [facility] URINE WBC - PMC None seen 0 - [address] [facility] URINE BACTERIA - PMC None Seen None Seen hpf [facility] URINE MUCUS - PMC None Seen lpf [facility] URINE SQUAMOUS None Seen None-Few hpf [facility] EPITHELIAL CELL - PMC [facility] Specimen Narrative [facility] - 01/13/2020 3 :07 EST Clean Catch Performing Organization Address [facility] [address] [place] [address] TROPONIN I (01/13/2020 1:57 EST) Troponin I <0.050 0 - 0.056 [facility] (ng/mL) Comment: ng/ml [facility] [...] Biotin. Specimen Performing Organization Address [facility] e [facility] [address] [place] [address] (ABNORMAL) SODIUM (01/13/2020 1:57 EST) Pathologist Sig nature Sodium 118 (CRIT LOW) 136 - 145 mEq/L [facility] Comment: [facility] Results called and read back to me by: Location: ER Full name: LEV JOSHUA Credentials: RN at 0258 on 01/13/20 by TESS. Specimen Performing Organization Address [facility] e Number [facility] [address] [place] [address] (ABNORMAL) BNP - PMC (01/13/2020 1:57 EST) Pathologist Sig nature B-TYPE NATRIURETIC 549 (H) <100 pg/mL [facility] PEPTIDE - [facility] LAB Specimen Performing Organization Address [facility] e Number [facility] [address] [place] [address] (ABNORMAL) UA (CULTURE IF POSITIVE) - [facility] (01/13/2020 1:57 EST) URINE COLOR - [facility] Yellow Straw/Yelow [facility] URINE APPEARANCE - Clear Clr/Hazy [facility] URINE PH - [facility] 6.0 5.0 - 9.0 [facility] UR SPECIFIC GRAVITY 1.006 1.001 - 1.035 [facility] (REFRACTOM) - [facility] URINE PROTEIN - PMC Negative Negative mg/dL [facility] URINE GLUCOSE (UA) - Negative Negative mg/dL [facility] URINE KETONES - [facility] Trace (A) Negative mg/dL [facility] URINE BILIRUBIN - Negative Negative [facility] URINE BLOOD - [facility] Trace (A) Negative [facility] URINE UROBILINOGEN - 0.2 0.2 - 1.0 [facility] E.U./dL [facility] URINE NITRATE - [facility] Negative Negative [facility] URINE LEUKOCYTE Negative Negative [facility] ESTERASE - [facility] URINE CULTURE CRITERIA NOT [facility] COMMENTS - [facility] METComment: [facility] Specimen does not meet criteria for culture. Specimen Narrative [facility] - 01/13/2020 3 :07 EST Clean Catch Performing Organization Address City/[facility]/ZIP Code Phon e Number [facility] [address] [place] [address] SODIUM, URINE RANDOM (01/13/2020 1:57 EST) Pathologist Sig nature Sodium, Urine 52 20 - 110 mEq/L [facility] Specimen Performing Organization Address City/[facility]/ZIP [facility] Phon e Number [facility] [address] [place] [address] documented in this encounter Visit Diagnoses Not on filedocumented in this encounter Care Teams Senior Production Planner Relationship Specialty Start Date End Date Katia Mccallum PA-C PCP - General 05/02/17 [address] [place] [id number] documented as of this encounter
--- OUTSIDE RECORDS SUMMARY | 2021-10-24 18:18 | XMS_ITS | Encounter Summary ---
:[address] [facility] Address [address] [place] [address] Care Team Providers Name Role Phone Katia Mccallum PA-C Primary Care Provider [phone] Reason for Visit Reason Onset Date Comments Other 11/03/2019 pacemaker problem Encounter Details Date Type Department Care Team Description 11/03/2019 Telephone [facility] Yariel Rosenberg MD Other (pacemaker [facility] [address] problem) [address] [place], [place] [address] [place] [id number] Social History Tobacco Use Types Packs/Day Years [...] Telephone Encounter - Belinda Falk RN - 11/05/2019 1351 EDT Updated patient message was sent to DR. Rosenberg for update on the next steps to the process. Patient expressed understanding. elephone Encounter - Belinda Falk RN - 11/04/2019 0913 EDT Call back to Nila relayed message from Dr. Rosenberg. Needs to be done at [facility] when we have the lead extraction program up and running. Will keep you posted. JW Nila expressed understanding, she mentioned patient is anxious and would like to have more information regarding next steps. elephone Encounter - Marilyn Escoto - 11/03/2019 1017 EDT Spoke with Nila at [employer], she is wondering about update in regards to plan for lead revision. Nila asks for an update you can reach her at [phone] extension [phone] Please advise Telephone Encounter - Jada Ochoa - 11/03/2019 1015 EDT Patient's pacemaker has been shocking him. documented in this encounter Plan of Treatment Not on filedocumented as of this encounter Visit Diagnoses Not on filedocumented in this encounter Care Teams Industry Consultant Relationship Specialty Start Date End Date Katia Mccallum PA-C PCP - General 05/02/17 [address] [place] [id number] documented as of this encounter
--- OUTSIDE RECORDS SUMMARY | 2021-10-24 18:18 | XMS_ITS | Encounter Summary ---
:1950 Author Organization [facility] Address [address] [place] [address] Care Team Providers Name Role Phone Katia Mccallum PA-C Primary Care Provider [phone] Reason for Visit Reason Onset Date Comments Other 06/18/2017 discharged on .04.18 Follow-up 07/16/2017 Encounter Details Date Type Department Care Team Description 06/18/2017 Telephone [facility] Pierre Rubio (discharged on Cardiology - Chaitanya Wiggins MD .04.18); Follow-up [address] [facility], [address] [place] [address] (Wo rk) Social History Tobacco [...] - 07/16/2017 1310 EDT Riley WINSTON at [facility] called. States : Wt 2 weeks ago [...] more clled in to [facility] in [place], stated colchicinehas run out- not sure if pt needs a refill or not. States he called pt's PCP in [place] and that MD wants to know if RN should draw labs? Please call back JOAN as he is with the pt now. Routing to Giovanni Sam NP and Belinda Eddy RN and will also go speak with one of them as well. Let Riley WINSTON know that Belinda Eddy would call back. elephone Encounter - Isidra Telles - 07/16/2017 1257 EDT [facility] calling, Weight at 224, has been fluctuating Limited edema Has been winded Less endurance Cough has green secretions Some slight harsh breathing sounds Questions: Blood Work? Prednisone Taper seems to be off, will need a refill if continuing in the same manner Telephone Encounter - Belinda Falk RN - 06/18/2017 1630 EDT Spoke with Riley horta [facility] mentioned call placed to patient to confirm medication taking. Per patient he was taking Torsemide 40 mg daily and was not taking lasix. Per Riley this was differnet then what was discussed. Referred home Health to discuss care with Shailesh Torres MD in [place] and Katia Mccallum PA-C, [facility]. elephone Encounter - Belinda Falk RN - [...] on 06.16.17. He has been feeling ok. [facility] is calling to discuss his medications as [...] on filedocumented in this encounter Care Teams Bottom Brusher Relationship Specialty Start Date End Date Katia Mccallum PA-C PCP - General 05/02/[address] [place] [id number] documented as of this encounter
--- OUTSIDE RECORDS SUMMARY | 2021-10-24 18:18 | XMS_ITS | Encounter Summary ---
:1950 Author Organization [facility] Address [address] [place] [address] Care Team Providers Name Role Phone Katia Mccallum PA-C Primary Care Provider [phone] Reason for Visit Reason Onset Date Comments Medication Questions 07/16/2017 Encounter Details Date Type Department Care Team Description 07/16/2017 Telephone [facility] Caitie Atwood, dication Questions Cardiology - Chaitanya INVERTED BLOCK OPERATOR [address] [place] [address] (Wo rk) Social History Tobacco [...] on filedocumented in this encounter Care Teams Welder Production Line Combination Relationship Specialty Start Date End Date Katia Mccallum PA-C PCP - General 05/02/[address] [place] [id number] documented as of this encounter
--- OUTSIDE RECORDS SUMMARY | 2021-10-24 18:18 | XMS_ITS | Encounter Summary ---
:1950 Author Organization [facility] Address [address] [place] [address] Care Team Providers Name Role Phone Katia Mccallum PA-C Primary Care Provider [phone] Reason for Visit Reason Onset Date Comments Coordination Of Care 11/30/2019 Follow-up 12/02/2019 Follow-up 12/22/2019 Pacemaker Problem 12/23/2019 Encounter Details Date Type Department Care Team Description 11/30/2019 Telephone [facility] Yariel Rosenberg MD Coordination Of Care; Cardiology - [address] Follow-up; Follow-up; [address] Pacemaker Problem So [address] [phone] Social History Tobacco Use Types [...] on filedocumented in this encounter Care Teams Asphalt Layer Relationship Specialty Start Date End Date Katia Mccallum PA-C PCP - General 05/02/[address] [place] [address] documented as of this encounter
--- OUTSIDE RECORDS SUMMARY | 2021-10-24 18:18 | XMS_ITS | Encounter Summary ---
:1950 Author Organization [facility] Address [address] [place] [address] Care Team Providers Name Role Phone Katia Mccallum PA-C Primary Care Provider [phone] Encounter Details Date Type Department Care Team Description 01/12/2020 Results Only [facility] - Angelic Olguin MD [facility] [address] [place] [address] [phone] (Wo rk) Social History Tobacco Use Types [...] CAPILLARY 102 (H) 70 - 100 mg/dL [facility] GLUCOSE - [facility] LAB Specimen Performing Organization Address City/[facility]/ZIP Code Phon e Number [facility] [address] [place] [address] (ABNORMAL) ETHYL ALCOHOL LEVEL - [facility] (01/12/2020 22:30 EST) ETHYL ALCOHOL 237.0 (CRIT HIGH) <10 mg/dL [facility] - [facility] Comment: [facility] Results called and read back to me by: Location: ED Full name: FERMIN FAROOQ Credentials: RN at 2346 on 01/12/20 by TESS. Medical Serum/Plasma Alcohol test reported in mg/dL. Example of unit conversion from mg/dL to percentage: ?80 mg/dL is equivalent to 0.08 % Specimen Narrative [facility] - 01/12/2020 2 3:47 EST Sample collected at time of saline lock or IV placement. Performing Organization Address City/[facility]/ZIP Code Phon e Number [facility] [address] [place] [address] TROPONIN I (01/12/2020 22:30 EST) Troponin I <0.050 0 - 0.056 [facility] (ng/mL) Comment: ng/ml [facility] Interpretation: [...] to the consumption of Biotin. Specimen Narrative [facility] - 01/12/2020 2 3:47 EST Sample collected at time of saline lock or IV placement. Performing Organization Address [facility] e [facility] [address] [place] [address] (ABNORMAL) BASIC METABOLIC PANEL,RANDOM - PMC (01/12/2020 22:30 EST) Sodium 116 (CRIT LOW) 136 - 145 mEq/L [facility] Comment: [place] [facility] Results called and read back to me by: Location: ED Full name: DEBBIE JOSHUA Credentials: RN at 2332 on 01/12/20 by TESS. Potassium 4.3 3.5 - 5.1 mEq/L [facility] Chloride 83 (L) 96 - 107 mEq/L [facility] CO2 Total 24.6 21 - 32 mEq/L [facility] Anion Gap 10.4 mEq/L [facility] BUN 5 (L) 7 - 25 mg/dl [facility] Creatinine 0.62 (L) 0.70 - 1.30 [facility] mg/dl [facility] Estimated GFR >60 >60 [facility] Comment: [facility] EGFR UNITS: mL/min/1.73 m 2 CKD-EPI Equation used to calculate. Glucose 89 70 - 180 mg/dl [facility] Calcium 8.2 (L) 8.5 - 10.1 [facility] mg/dl [facility] Specimen Narrative [facility] - 01/12/2020 2 3:47 EST Sample collected at time of saline lock or IV placement. Performing Organization Address [facility] e [facility] [address] [place] [address] (ABNORMAL) HEPATIC FUNCTION PANEL (ALB,ALK PHOS,ALT,AST,DBIL,TOT BOSSMAN,TOT PROT) (01/12/2020 22:30 EST) Pathologist Sig nature BILIRUBIN - PMC 0.60 0.00 - 1.00 [facility] mg/dl [facility] DIRECT BILIRUBIN - [facility] 0.20 0.00 - 0.30 [facility] mg/dl [facility] INDIRECT BILIRUBIN - 0.40 0.00 - 0.80 [facility] mg/dl [facility] AST 74 (H) 15 - 37 U/L [facility] ALT 44 16 - 63 U/L [facility] Alkaline Phosphatase 103 46 - 116 U/L [facility] Total Protein 8.1 6.4 - 8.2 g/dl [facility] Albumin 3.3 (L) 3.4 - 5.0 g/dl [facility] GLOBULIN - [facility] 4.8 g/dl [facility] ALBUMIN/GLOBULIN RATIO 0.6 [facility] Specimen Narrative [facility] - 01/12/2020 2 3:47 EST Sample collected at time of saline lock or IV placement. Performing Organization Address City/State/ZIP Code Phon e Number [facility] [address] [place] [address] (ABNORMAL) COMPLETE BLOOD COUNT AND DIFFERENTIAL (01/12/2020 22:30 EST) Pathologist [facility] WBC 5.5 4.0 - 10.5 10 [facility] 3/[facility] RBC 3.69 (L) 4.70 - 6.00 10 [facility] 6/[facility] Hemoglobin 12.8 (L) 13.5 - 18.0 [facility] g/dL [place] [facility] HCT 35.3 (L) 42.0 - 52.0 % [facility] MCV 95.7 78 - 100 fL [facility] MCH 34.7 (H) 27 - 31 pg [facility] MCHC 36.3 (H) 32 - 36 g/dL [facility] RDW-CV - [facility] 12.6 11.0 - 14.8 % [facility] PLATELET COUNT - [facility] 182 150 - [address] LAB NEUTROPHILS % (AUTO) 54.5 42.0 - 75.0 % [facility] LYMPHOCYTES % (AUTO) 29.0 16.0 - 52.0 % [facility] MONOCYTES % (AUTO) - 12.6 (H) 1.0 - 11.0 % [facility] LAB EOSINOPHILS % (AUTO) 2.4 0.0 - 7.0 % [facility] BASOPHILS % (AUTO) - 1.1 0.0 - 4.0 % [facility] LAB NUCLEATED RBC % 0.0 <1 % [facility] (AUTO) [facility] LAB NEUTROPHILS # (AUTO) 3.0 1.5 - 6.[address] [facility] 3/uL [facility] LYMPHOCYTES # (AUTO) 1.6 1.0 - 3.[address] [facility] 3/uL [place] [facility] MONOCYTES # (AUTO) - 0.7 <1.0 10 3/uL [facility] LAB EOSINOPHILS # (AUTO) 0.1 <0.7 10 3/uL [facility] BASOPHILS # (AUTO) - 0.1 <0.1 10 3/uL [facility] LAB NUCLEATED RBC # 0.00 <1 10 3/uL [facility] (AUTO) [facility] LAB Specimen Narrative [facility] - 01/12/2020 2 3:35 EST Sample collected at time of saline lock or IV placement. Performing Organization Address City/State/ZIP Code Phon e Number [facility] [address] [place] [address] documented in this encounter Visit Diagnoses Not on filedocumented in this encounter Care Teams Flat Knitter Relationship Specialty Start Date End Date Katia Mccallum PA-C PCP - General 05/02/[address] [facility] [place] [address] documented as of this encounter
--- OUTSIDE RECORDS SUMMARY | 2021-10-24 18:18 | XMS_ITS | Encounter Summary ---
:1950 Author Organization [facility] Address [address] [place] [address] Care Team Providers Name Role Phone Katia Mccallum PA-C Primary Care Provider [phone] Encounter Details Date Type Department Care Team Description 12/12/2018 Results Only [facility] - Candelaria Vila MD Imaging [facility] [address] [facility] Radiology Results [facility], [address], [address] [place], [place] [id number] [place] [address] [phone] (Wo rk) Social History Tobacco Use Types [...] 2 VIEWS (12/12/2018 22:15 EDT) Specimen Narrative [facility] RADIOLOGY - 2018 22:15 EDT ?[facility]: [facility] ?[address] ?[place] [address] ?Diagnostic Imaging Report ? Signed ? Patient Name:DAVID FARFAN ? Date of :1950 ?MR Number:[id number] ? Age:68 ?Sex:M ? Category: CR ?Date [...] regarding this report , please contact the [facility] at [phone] ? Dictated by: Alma Sherwood DO ?D/ ?? 2215 ?? Transcribed by: GABE ?D/T: ? E-Signed by: Alma Sherwood DO ?D/ ?? 2327 ? Procedure Note Alma Sherwood MD - [facility] [address] [address] Diagnostic Imaging Report Signed Patient Name:DAVID FARFAN r:[id number] Date of :1950 MR Number:[id number] Age:68 Sex:M Category: CR Date of Exam:12/12/18 [...] regarding this report , please contact the [facility] at [phone] Dictated by: Alma Sherwood DO D/T: 2214 Transcribed by: GABE Barriga/T: E-Signed by: Alma Sherwood/T: [id number] Performing Organization Address City/State/ZIP Code Phon e Number [facility] RADIOLOGY documented in this encounter Visit Diagnoses Not on filedocumented in this encounter Care Teams Horse Show Judge Relationship Specialty Start Date End Date Katia Mccallum PA-C PCP - General 05/02/[address] [place] [id number] documented as of this encounter
--- OUTSIDE RECORDS SUMMARY | 2021-10-24 18:18 | XMS_ITS | Encounter Summary ---
:1950 Author Organization [facility] Address [address] [place] [address] Care Team Providers Name Role Phone Katia Mccallum PA-C Primary Care Provider [phone] Encounter Details Date Type Department Care Team Description 08/13/2018 Historical Results [facility] - Katia Mccallum Only [facility] [address] [facility] [place] [place] [address] [place] [address] [phone] Social History Tobacco Use Types Packs/Day Years [...] EDT) Sodium 125 (L) 136 - 145 [facility] Potassium 4.9 3.5 - 5.1 [facility] Chloride 91 (L) 96 - 107 [facility] CO2 Total 25.4 21 - 32 [facility] Anion Gap 8.6 [facility] BUN 7 7 - 25 [facility] Creatinine 0.59 (L) 0.7 - 1.30 [facility] Estimated GFR >[address] [facility] Comment: [facility] EGFR UNITS: mL/min/1.73 m 2 CKD-EPI Equation used to calculate. Glucose 88 FASTIN-99 [facility] Calcium 8.1 (L) 8.5 - 10.5 [facility] CALCIUM,CORRECTED - 8.7 8.5 - 10.5 [facility] BILIRUBIN - [facility] 0.20 0.00 - 1.00 [facility] AST 40 (H) 15 - 37 [facility] ALT 45 12 - 78 [facility] Alkaline Phosphatase 112 46 - 116 [facility] Total Protein 7.1 6.4 - 8.2 [facility] Albumin 3.2 (L) 3.4 - 5.0 [facility] GLOBULIN - PMC 3.9 [facility] ALBUMIN/GLOBULIN 0.8 [facility] Specimen Performing Organization Address City/State/ZIP Code Phon e Number [facility] [address] [place] [address] [facility] documented in this encounter Visit Diagnoses Not on filedocumented in this encounter Care Teams Soldering 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
--- OUTSIDE RECORDS SUMMARY | 2021-10-24 18:19 | XMS_ITS | Encounter Summary ---
:1950 Author Organization [facility] Address [address] [place] [address] Care Team Providers Name Role Phone Katia Mccallum PA-C Primary Care Provider [phone] Reason for Referral Follow Up (3 - 10 Business Days) - New Request Specialty Diagnoses / Procedures Referred By Contact Refer red To Contact Diagnoses Hyponatremia Pericardial effusion Heart block Acute on chronic diastolic congestive heart failure (HCC-CMS) ([facility]) Acute pericarditis, unspecified type Vini Mathis MD Jupin, Katelyn Doran, [address] [facility] [place] [address] [address] [place] [address] Phone: Fax: Referral ID Status Reason Start Expiration Visits Visits Date Date Requested Authorized [id number] New Request Continuity of 05/27/2017 1 1 Care Question Answer Reason for Request: post hosp f/u visit Reason for Visit Reason Comments Chest Pain Patient arrives as transfer from [facility] for pleuritic chest pain and new diagnosis CHF after pacemaker placement at [facility] two weeks ago. Dyspnea with exertion, breat h sounds course crackles. Alert and oriented. Encounter Details Date Type Department Care Team Description 05/20/2017 - [facility] Laly Kim MD [address] [facility], Level 1 [place] [id number] Hyponatremia (Primary Dx); 05/27/2017 Encounter Cardiac/Telemetry Akash Reyes MD [address] [id number] Pericardial effusion; Unit Andres Luis MD [address] [address] Heart block; [address] [place] [address] Tony Flores MD [address] [place] [address] Acute on chronic diastolic congestive he art failure (CMS-HCC) ([facility]); [place], [place] Seng Brody Sa, MD [address] [address] Acute pericarditis, unspecified type [address] [...] amlodipine and chlorthalidone. ?? He presented to [facility] ED 05/20 with orthopnea and cough, and CT chest showed pericardial effusion. He was transferred to [facility] ED for pericardiocentesis. In the ED he [...] Component Value Units Date/Time Respiratory Virus Detection [[id number]] Collected: 05/26/17 1157 Lab Status: Preliminary result Specimen: Nasopharynx Updated: 05/27/17 1425 Result No RSV, Influenza A, or Influenza B detected by PCR Result No Metapneumovirus detected by PCR. Result Delay in some virus(es) result(s), testing being repeated and/or confirmed. Anaerobe Culture/Smear (inc. aerobes), Fluid [[id number]] Collected: 05/23/17 0747 Lab Status: Preliminary result Specimen: FOSMIC from Pericardial Fluid Updated: 05/25/17 1146 Gram Smear Result Few Polys No bacteria seen Result No growth Fungus Culture/Smear, Other [[id number]] Collected: 05/23/17 0747 Lab Status: Preliminary result [...] 05/01/2017 Discharge Follow Up Appointments Scheduled with [facility] Upcoming Appointments Jun 04, 2017 16:00 EDT Post Hospital Visit with Tony Rosenberg MD [facility] Cardiology [facility] (--) [address] [place] [id number] Appointments Outside of [facility] We Will Schedule Follow-up appointments and procedures Amb Consult/Follow Up Primary Care Physician Reason for Request: post hosp f/u visit Authorizing Provider: Vini Mathis MD Additional Information: Cardiology follow up FriJune 04, 2017 at [address] Justin Rosenberg at the [facility]. You should be notified of appointment time. If you do not head by FriJune 01, please call [phone] to find out the time. Cardiology follow up on June 16, 2017 at 2:[address] Torres at the [facility] has previously scheduled. Clinic number [id number] Studies We Will Schedule Follow-up labs and [...] Vini Mathis MD Internal Medicine PGY-1 Pager: [phone] 05/27/2017 20:52 Associated attestation - Seng Brody Sa, MD - 05/30/2017 1206 EDT Attending Attestation: I saw and evaluated the patient 05/27. I discussed the case with the resident/SILK SCREEN PAINTER/fellow and agree with the findings and plan as documented above. Seng person Sa, MD Cardiac Electrophysiology documented in this encounter Discharge Instructions Joesph-Coleen Gr NP - 05/27/2017 10:25 EDT Cardiology follow up FriJune 04, 2017 at [address] Justin Rosenberg at the [facility]. You should be notified of appointment time. If you do not head by FriJune 01, please call [phone] to find out the time. Cardiology follow up on June 16, 2017 at 2:[address] Torres at the [facility] has previously scheduled. Clinic number [phone] Discharge Instr - Other Melida Mas RN [...] through Care Everywhere. HEART FAILURE: AVOIDING TRIGGERS (THAI)documented in this encounter Medications at Time of [...] knees MSK: Normal bulk and tone. 5/5 director of veterans affairs strength SKIN: No lesions, bruises, or rashes [...] initially hypertensive, but now normo-hypotensive. - Holding GIFT CONSULTANT lisinopril ?? Chronic diastolic heart failure: Volume [...] 05/26/17. I discussed the case with the resident/SILK SCREEN PAINTER/fellow and agree with the findings and plan [...] cough because of pain RT Wayne 05/25/17 Gisella Dumont - 05/25/2017 1300 EDT Cardiology Progress note [...] knees MSK: Normal bulk and tone. 5/5 director of veterans affairs strength SKIN: No lesions, bruises, or rashes [...] initially hypertensive, but now normo-hypotensive. - Holding GIFT CONSULTANT lisinopril ?? Chronic diastolic heart failure: currently volume overloaded. Needs diuresis, cautious in setting ofnormotension. - Holding Lasix/chlorthalidone - Torsemide 40 mg BID PO as above - Strict I&O - 1.5 L fluid restriction as above - Daily weights - Daily BUN, Cr VTE Prophylaxis Held d/t bloody pericentesis drain Discharge Plan Uncertain at this time Luciano Christian MD 05/25/17 ony Rosenberg MD - 05/24/2017 1003 EDT Cardiology Progress [...] knees MSK: Normal bulk and tone. 5/5 director of veterans affairs strength SKIN: No lesions, bruises, or rashes [...] initially hypertensive, but now normo-hypotensive. - Holding GIFT CONSULTANT lisinopril ?? Chronic diastolic heart failure: currently [...] Landry M.D., PGY-1 Internal Medicine Resident Pager [phone] 05/24/2017 10:04 Attestation statement: Supervising Physician I [...] knees MSK: Normal bulk and tone. 5/5 director of veterans affairs strength SKIN: No lesions, bruises, or rashes [...] initially hypertensive, but now normo-hypotensive. - Holding GIFT CONSULTANT lisinopril ?? Chronic diastolic heart failure: currently [...] Landry M.D., PGY-1 Internal Medicine Resident Pager [phone] 05/23/2017 9:11 Attestation statement: Supervising Physician. I [...] knees MSK: Normal bulk and tone. 5/5 director of veterans affairs strength SKIN: No lesions, bruises, or rashes [...] initially hypertensive, but now normo-hypotensive. - Holding GIFT CONSULTANT lisinopril ?? Chronic diastolic heart failure: currently volume overloaded. Needs diuresis, cautious in setting ofnormotension. - Holding Lasix/chlorthalidone - Torsemide 10 mg PO as aobve - Strict I&O - 1.5 L fluid restriction as above - Daily weights - Daily BUN, Cr VTE Prophylaxis Held d/t bloody pericentesis drain Discharge Plan Uncertain at this time Jayne Landry M.D., PGY-1 Internal Medicine Resident Pager [phone] 05/22/2017 8:50 Attestation statement: I saw and [...] Chart: Yes, previous copy on file @ [facility] DIRECTIVES FOR FINANCES: TRANSPORTATION: Transportation: Family CULTURAL, JAIN and/or LANGUAGE factors affecting health care/discharge planning: [...] AID - [address] - [place], [place] - [address] [place] [address] [facility] - [place], [place] - [address] [facility] [address] [facility] [address] Home Health: Other: POST HOSPITAL TRANSITION PLAN: Plan d/c to his son, Catarina, house in [place] Desi Villatoro RN 05/21/2017 13:12 Desi Villatoro RN - 05/21/2017 0996 EDT 05/21: Met with patient. Dr. Rosenberg is at the bedside. Plan will be pericardiocentesis and reposition of pacer lead. I will follow up with patient later today. Desi Villatoro RN [id number] YTJayne Landry MD - 05/21/2017 0747 [...] knees MSK: Normal bulk and tone. 5/5 director of veterans affairs strength SKIN: No lesions, bruises, or rashes [...] will hold lisinopril for now. - Holding GIFT CONSULTANT lisinopril ?? Chronic diastolic heart failure: currently volume overloaded. Needs diuresis after resolution of pericardial effusion. - Holding Lasix/chlorthalidone in setting of pericardial effusion - Strict I&O - 1.2 L fluid restriction as above - Daily weights - Daily BUN, Cr VTE Prophylaxis Held pending pericardiocentesis Discharge Plan Uncertain at this time Jayne Landry M.D., PGY-1 Internal Medicine Resident Pager [phone] 05/21/2017 8:01 Ester Dobbins MD - 05/21/2017 [...] 48 hours after theprocedure. Ester Dobbins MD Bilingual Customer Service PGY-5 05/20/2017 23:30 documented in this encounter [...] smoker, 1-2 beers 1-2x/week, lives alone in [place] Allergies: Reviewed No Known Allergies Exam: General [...] will hold lisinopril for now. - Holding GIFT CONSULTANT lisinopril Chronic diastolic heart failure: with some [...] outpatient, avoid thiazide diuretics Vladimir Crowe MD [facility] Transplant [employer] Former of Transplant Programs 05/25/2017 11:46 Vladimir mckeon [...] the assessment and plan. Vladimir Crowe MD [facility] Transplant [employer] Former of Transplant Programs 05/24/2017 12:32 YTElliot Fairchild MD - 05/23/2017 1520 EDT NEPHROLOGY CONSULT [...] data in the 24 hours ending 05/21/17 1327 Weight: Wt Readings from Last 5 [...] TIME. PT IN ER ROOM 8, ON SHIRT CREASER, NIBP, AND SPO2, ASSESSMENT NOTED, Tony Palma - 05/20/20177 EDT Blood drawn via saline lock per protocol, tiger tube(s) sent to lab per order. Laly Kim MD - 05/20/20174 EDT DOS: 05/20/2017 Chief Complaint Patient presents with ??? Chest Pain Patient arrives as transfer from [facility] for pleuritic chest pain and new diagnosis CHF after pacemaker placement at [facility] two weeks ago. Dyspnea with exertion, breath sounds course crackles.Alert and oriented. HPI HPI Comments: I Deana Bingham, am scribing for Laly Kim, * while he/she is personally performing the service. Deana Otilia 05/20/2017 22:25 David Mera is a 66 y.o. male with a history of heart block AV third degree, HTN, acute on chronicCHF, who presents as a transfer from [place] with pericardial effusion. Pt had pacemaker placed [...] appears to be a good tracing. Attending shredder operator not available for acute interpretation. Radiology orders: [...] for problems Not Given Final Accession number [id number] Final CREATININE, URINE RANDOM SODIUM, URINE RANDOM [...] of admission: 0 (). PCP: Katia Mccallum [facility] Number of Diagnoses or Management Options [...] Care - Sigrid Gordon, TISH - 05/25/2017 0586 EDT Problem: Daily Care Plan Goals Goal: [...] Care - Cici Tapia RN - 05/24/2017 0008 EDT Problem: Daily Care Plan Goals Goal: [...] Ottoniel - Rox Valdivia, TISH - 05/21/2017 9266 EDT Problem: Daily Care Plan Goals Goal: [...] SOB and pleuritic chest pain. Transferred from [facility]. Dx of peridcardial effusion, HTN, CHF, and [...] EKG 12-LEAD (05/27/2017 7:37 EDT) Specimen Narrative [facility] EKG - 06/01/2017 12:4 1 EDT ? [facility] ? Test Date: ?2017-05-27 Pat Name: ? DAVID HULLEY ?Department: ?? KILGORE 5 ? Room: ? MW531 Gender: ? M ?Director Of Agronomy: ?? [id number] : ?1950 ? Requested By: PRADIP MARIA ANTONIA Order Number: [id number] ? Reading MD: ?? PIERRE RUBIO MD ? Measurements Intervals ?Mary Esther ? Rate: ? 69 ? P: ?23 NJ: ? 175 ?QRS: ?-58 QRSD: ? 193 [...] Note Pierre Rubio MD - 06/01/2017 [facility] Test Date: 2017-05-27 Pat Name: DAVID MERA Department: [place] [address] Room: [facility] Gender: M Director Of Agronomy: [id number] : 1950 Requested By: PRADIP MANNING Order Number: [id number] Reading MD: Irish RUBIO MD Measurements Intervals Mary Esther Rate: 69 P: 23 NJ: 175 QRS: -58 QRSD: 193 T: 189 QT: 528 QTc: 568 Interpretive Statements SINUS RHYTHM WITH ATRIAL TRACKING and VE NTRICULAR PACING Compared to ECG 05/26/2017 07:29:50 No significant changes I reviewed the tracing and have either a greed or edited the findings in this report. Electronically Signed On 12:41:22 EDT by PIERRE RUBIO MD. Performing Organization Address City/State/[facility] Code Phon e Number [facility] EKG (ABNORMAL) ELECTROLYTES (05/27/2017 5:57 EDT) Pathologist Sig nature Sodium 129 (L) 136 - 145 mEq/L [facility] LABORA TORY SERVICES Potassium 3.9 3.5 - 5.0 mEq/L [facility] Chloride 87 (L) 96 - 110 mEq/L [facility] LABORAT ORY SERVICES CO2 33 (H) 22 - 32 mEq/L [facility]ORATO RY SERVICES Specimen Blood specimen (specimen) - Blood Performing Organization Address City/[facility]/ZIP Code Phon e Number [facility] [address] [place] [address] SERVICES BUN (05/27/2017 5:57 EDT) Pathologist Sig nature BUN 13 10 - 26 mg/dl [facility]ORATO RY SERVICES Specimen Blood specimen (specimen) - Blood Performing Organization Address City/State/ZIP Code Phon e Number [facility] [address] [place] [address] SERVICES MAGNESIUM (05/27/2017 5:57 EDT) Pathologist Sig nature Magnesium 1.9 1.7 - 2.8 mg/dl [facility] Specimen Blood specimen (specimen) - Blood Performing Organization Address City/State/ZIP Code Phon e Number [facility] [address] [place] [address] SERVICES (ABNORMAL) CREATININE (05/27/2017 5:57 EDT) Creatinine 0.63 (L) 0.66 - 1.25 [facility] mg/dl LABORATORY SERVICES GFR, Calculated 103 >60 [facility] Comment: ml/min/1.73m2 LABORATORY eGFR calculated using CKD-EPI equation for SERVICES non Americans. Multiply eGFR by 1.16 for Americans. Specimen Blood specimen (specimen) - Blood Performing Organization Address City/State/ZIP Code Phon e Number [facility] [address] [place] [address] SERVICES (ABNORMAL) HEMAGRAM (05/27/2017 5:57 EDT) Pathologist Sig nature WBC 6.74 4.0 - 10.4 K/cmm [facility] SERVICES RBC 3.43 (L) 4.36 - 5.78 M/cmm [facility] Hemoglobin 11.3 (L) 13.8 - 17.3 gm/dl [facility] HCT 32.2 (L) 39.5 - 50.2 % [facility] SERVICES MCV 94 81 - 95 fl [facility] MCH 32.9 27.6 - 33.0 pg [facility] MCHC 35.1 32.8 - 36.4 gm/dl [facility] SERVICES RDW-CV 11.3 <14.2 % [facility] SERVICES RDW-SD 38.4 <46.0 fl [facility] SERVICES PLT 308 141 - 377 K/cmm [facility] SERVICES MPV 10.4 9.5 - 12.7 fl [facility] SERVICES Specimen Blood specimen (specimen) - Blood Performing Organization Address [facility] [place]/[facility] Phon e Number [facility] [address] [place] [address] SERVICES (ABNORMAL) NT PRO BNP (05/26/2017 17:55 EDT) Pathologist Sig nature NT Pro BNP 2,710 (H) <300 pg/ml [facility] Comment: LABORATORY SERVICES Slight hemolysis Results may [...] specimen (specimen) - Blood Performing Organization Address [facility] [place]/[facility] Phon e Number [facility] [address] [place] [address] SERVICES (ABNORMAL) ELECTROLYTES (05/26/2017 17:55 EDT) Pathologist Sig nature Sodium 129 (L)Comment: 136 - 145 mEq/L [facility] Slight hemolysis LABORATORY SERVICES Potassium 4.0 3.5 - 5.0 mEq/L [facility] Comment: LABORATORY SERVICES Slight hemolysis Hemolysis may elevate potassium result. Chloride 84 (L)Comment: 96 - 110 mEq/L [facility] Slight hemolysis LABORATORY SERVICES CO2 35 (H)Comment: 22 - 32 mEq/L [facility] Slight hemolysis LABORATORY SERVICES Specimen Blood specimen (specimen) - Blood Performing Organization Address City/[facility]/ZIP [facility] Phon e Number [facility] [address] [place] [address] SERVICES INPATIENT ADD-ON (05/26/2017 15:20 EDT) Tests to be added BNP [facility] [place] [id number] [facility] problems LABORATORY SERVICES Accession number CALLED M5 WITH [facility] INABILITY TO LABORATORY SERVICES PERFORM ADD ON DUE TO NO SUITABLE SAMPLE [id number] JR Specimen Other Performing Organization Address City/[facility]/ZIP Code Phon e Number [facility] [address] [place] [address] SERVICES LEGIONELLA ANTIGEN DETECTION, URINE (05/26/2017 14:04 EDT) Pathologist Sig nature Result No Legionella [facility] pneumophila serogroup LABORATORY SERVICES 1 antigen detected. Specimen Other (qualifier value) - Urine Performing Organization Address City/[facility]/ZIP Code Phon e Number [facility] [address] [place] [address] SERVICES STREPTOCOCCUS PNEUMONIAE ANTIGEN, URINE (05/26/2017 14:04 EDT) Pathologist Sig nature Result No Strep pneumoniae [facility] antigen detected. LABORATORY SERVICES Specimen Other (qualifier value) - Urine Performing Organization Address City/[facility]/ZIP Code Phon e Number [facility] [address] [place] [address] SERVICES CHEST PA AND LATERAL (05/26/2017 12:30 EDT) Anatomical Region Laterality Modality Other Specimen Narrative [facility] - 05/26/2017 14:17 EDT [...] Organization Address City/State/ZIP Code Phon e Number [facility] BACTERIAL CULTURE/SMEAR, RESPIRATORY (05/26/2017 12:14 EDT) Gram Smear Result [facility] Polys LABORATORY SERVICES Gram Smear Result [facility] Squamous epithelial cells LABORATORY SERVICES Gram Smear Result [facility] Mixed gram positive and gram negative organisms LABORATORY SERVICES Gram Smear Result Smear suggests contamination with saliva. ??Please submit additional specimen if clinically [facility] indicated. LABORATORY SERVICES Result See gram smear [facility] results. LABORATORY SERVICES Result Credit Issued [facility]ORATORY SERVICES Specimen Other (qualifier value) - Sputum Performing Organization Address City/State/ZIP Code Phon e Number [facility] [address] [place] [address] SERVICES RESPIRATORY VIRUS DETECTION (05/26/2017 11:57 EDT) Result No RSV, Influenza A, or [facility] Influenza B detected by LABORATORY SERVIC ES PCR Result No Metapneumovirus [facility] detected by PCR. LABORATORY SERVICES Result No Parainfluenza Virus Type 1,2 or 3 detected by PCR. This assay may have decrease sensitivity [facility] for Parainfluenza Virus Type 3. LABORATOR Y SERVICES Specimen Nasopharynx Performing Organization Address City/State/ZIP Code Phon e Number [facility] [address] [place] [address] SERVICES ECHOCARDIOGRAM LIMITED (05/26/2017 11:16 EDT) Specimen Narrative [facility] CARDIOLOGY MAIN CAMPU S - 05/26/2017 11:25 EDT *Interpreting Group:* *[facility]* [address] [place] [address] Date of study: 05/26/2017 Transthoracic Echocardiography M-mode, [...] Rosenberg MD ORDERING ?Tony Rosenberg MD PERFORMING ??[facility], REFERRING ?? Katia Mccallum *PROCEDURE DATA* Procedure information: ??The patient was identified by two identifiers. This study was interpreted by [facility]. Pertinent images and digital data are [...] Andrade MD - 05/26/2017 *Interpreting Group:* *[facility]* [address] [place] [address] Date of study: 05/26/2017 Transthoracic Echocardiography M-mode, [...] Rosenberg MD ORDERING Tony Rosenberg MD PERFORMING [facility], Ip REFERRING Katia Mccallum *PROCEDURE DATA* Procedure information: The patient was i dentified by two identifiers. This study was interpreted by [facility]. Pertinent images and digital data are [...] Organization Address City/State/ZIP Code Phon e Number [facility] CARDIOLOGY [facility]IN CAMP[facility] EKG 12-LEAD (05/26/2017 7:29 EDT) Specimen Narrative [facility] EKG - 05/27/2017 13:1 8 EDT ? [facility] ? Test Date: ?2017-05-26 Pat Name: ? DAVID MERA ?Department: ?? K[facility] 5 ? Room: ? MW531 Gender: ? M ?Director Of Agronomy: ?? [id number] : ?1950 ? Requested By: PRADIP MONET Order Number: [id number] ? Martha OAKES: ?? LALY DELA CRUZ MD ? Measurements Intervals ?Mary Esther ? Rate: ? 73 ? P: ? NJ: ? 0 ?QRS: ?-45 QRSD: ? 192 [...] Laly Dela Cruz MD - 05/27/2017 [facility] Test Date: 2017-05-26 Pat Name: DAVID ADOLPH Department: BUD Chao Room: [facility] Gender: M Director Of Agronomy: [id number] : 1950 Requested By: PRADIP MANNING Order Number: [id number] Reading MDKarel DELA CRUZ MD Measurements Intervals Mary Esther Rate: 73 P: NJ: 0 QRS: -45 QRSD: 192 T: 176 QT: 536 QTc: 594 Interpretive Statements ELECTRONIC VENTRICULAR PACEMAKER ABNORMAL RHYTHM ECG Automated Interpretation. Provider Inter pretation to follow. Compared to ECG 05/25/2017 07:40:16 No significant changes I reviewed the tracing and have either a greed or edited the findings in this report. Electronically Signed On 13:18:21 EDT by LALY DELA CRUZ MD. Performing Organization Address [facility] Code [facility] e [facility] EKG (ABNORMAL) ELECTROLYTES (05/26/2017 5:57 EDT) Pathologist Sig nature Sodium 128 (L) 136 - 145 mEq/L [facility] Potassium 3.7 3.5 - 5.0 mEq/L [facility] Chloride 85 (L) 96 - 110 mEq/L [facility] CO2 35 (H) 22 - 32 mEq/L [facility] Specimen Blood specimen (specimen) - Blood Performing Organization Address [facility] e [facility] LABORATORY [address] [place] [address] SERVICES (ABNORMAL) BUN (05/26/2017 5:57 EDT) Pathologist Sig nature BUN 9 (L) 10 - 26 mg/dl [facility] Specimen Blood specimen (specimen) - Blood Performing Organization Address [facility] e [facility] LABORATORY [address] [place] [address] SERVICES MAGNESIUM (05/26/2017 5:57 EDT) Pathologist Sig nature Magnesium 1.8 1.7 - 2.8 mg/dl [facility] LABORA TORY SERVICES Specimen Blood specimen (specimen) - Blood Performing Organization Address [facility] [place] e [facility] LABORATORY [address] [place] [address] SERVICES (ABNORMAL) CREATININE (05/26/2017 5:57 EDT) Creatinine 0.53 (L) 0.66 - 1.25 [facility] mg/dl LABORATORY SERVICES GFR, Calculated 110 >60 [facility] Comment: ml/min/1.73m2 LABORATORY eGFR calculated using CKD-EPI equation for SERVICES non Americans. Multiply eGFR by 1.16 for Americans. Specimen Blood specimen (specimen) - Blood Performing Organization Address City/State/ZIP Code Phon e Number [facility] LABORATORY [address] [phone] SERVICES (ABNORMAL) HEMAGRAM (05/26/2017 5:57 EDT) Pathologist Sig nature WBC 7.06 4.0 - 10.4 K/cmm [facility] LABORATORY SERVICES RBC 3.20 (L) 4.36 - 5.78 M/cmm [facility] LABORATORY SERVICES Hemoglobin 10.7 (L) 13.8 - 17.3 gm/dl [facility] LABORATORY SERVICES HCT 30.0 (L) 39.5 - 50.2 % [facility] LABORATORY SERVICES MCV 94 81 - 95 fl [facility] LABORATORY SERVICES MCH 33.4 (H) 27.6 - 33.0 pg [facility] LABORATORY SERVICES MCHC 35.7 32.8 - 36.4 gm/dl [facility] LABORATORY SERVICES RDW-CV 11.3 <14.2 % [facility] LABORATORY SERVICES RDW-SD 38.4 <46.0 fl [facility] LABORATORY SERVICES PLT 306 141 - 377 K/cmm [facility] LABORATORY SERVICES MPV 10.3 9.5 - 12.7 fl [facility] LABORATORY SERVICES Specimen Blood specimen (specimen) - Blood Performing Organization Address City/State/ZIP Code Phon e Number [facility] LABORATORY [address] [place] [address] SERVICES (ABNORMAL) ELECTROLYTES (05/25/2017 17:58 EDT) Pathologist Sig nature Sodium 130 (L) 136 - 145 mEq/L [facility] LABORA TORY SERVICES Potassium 3.6 3.5 - 5.0 mEq/L [facility] LABORA TORY SERVICES Chloride 83 (L) 96 - 110 mEq/L [facility] LABORAT ORY SERVICES CO2 36 (H) 22 - 32 mEq/L [facility] LABORATO RY SERVICES Specimen Blood specimen (specimen) - Blood Performing Organization Address City/State/ZIP Code Phon e Number [facility] LABORATORY [address] [phone] SERVICES OSMOLALITY, URINE (05/25/2017 14:29 EDT) Pathologist Sig nature Osmolality, Ur 284 150 - 1,150 mos/kg [facility] LABORATORY SERVICES Specimen Urine (substance) - Urine Performing Organization Address City/[facility] Code Phon e Number [facility] LABORATORY [address] [place] [address] SERVICES URINE ELECTROLYTES (05/25/2017 14:29 EDT) Chloride, Ur 41 mEq/L [facility] Comment: LABORATORY SERVICES Reference Range: No reference range available Potassium, Urine 31.1 mEq/L [facility] LABORATORY SERVICES Sodium, Ur 81.0 mEq/L [facility] LABORATORY SERVICES Specimen Urine (substance) - Urine Performing Organization Address City/[facility] Code Phon e Number [facility] LABORATORY [address] [place] [address] SERVICES EKG 12-LEAD (05/25/2017 7:40 EDT) Specimen Narrative [facility] EKG - 06/02/2017 8:35 EDT ? [facility] ? Test Date: ?2017-05-25 Pat Name: ? DAVID MERA ?Department: ?? [facility] 5 ? Room: ? MW531 Gender: ? M ?Director Of Agronomy: ?? [id number] : ?1950 ? Requested By: PRADIP MONET Order Number: [id number] ? Reading : ?? SENG PERSON SA, MD ? Measurements Intervals ?Mary [place] ? Rate: ? 76 ? P: ?35 NJ: ? 218 ?QRS: ?-47 QRSD: ? 188 [...] Seng Brody Sa, MD - 06/02/2017 [facility] Test Date: 2017-05-25 Pat Name: DAVID MERA [facility] Gender: M Director Of Agronomy: [id number] : 1950 Requested By: PRADIP ESTRADAEY Order Number: [id number] Reading MD: Nithya PERSON SA, MD Measurements Intervals [place] Rate: 76 P: 35 NJ: 218 QRS: -47 QRSD: 188 T: 193 [...] SENG PERSON SA, MD. Performing Organization Address City/[facility]/ZIP Code Phon e Number [facility] EKG (ABNORMAL) ELECTROLYTES (05/25/2017 5:59 EDT) Pathologist Sig nature Sodium 127 (L) 136 - 145 mEq/L [facility] Potassium 3.7 3.5 - 5.0 mEq/L [facility] Chloride 85 (L) 96 - 110 mEq/L [facility] CO2 36 (H) 22 - 32 mEq/L [facility] Specimen Blood specimen (specimen) - Blood Performing Organization Address [facility] [place]/ZIP [facility] [place]on e Number [facility] LABORATORY [address] [place] [address] SERVICES (ABNORMAL) BUN (05/25/2017 5:59 EDT) Pathologist Sig nature BUN 9 (L) 10 - 26 mg/dl [facility] Specimen Blood specimen (specimen) - Blood Performing Organization Address [facility] [place]/ZIP Code Phon e Number [facility] LABORATORY [address] [place] [address] SERVICES MAGNESIUM (05/25/2017 5:59 EDT) Pathologist Sig nature Magnesium 1.7 1.7 - 2.8 mg/dl [facility] Specimen Blood specimen (specimen) - Blood Performing Organization Address [facility] [place]/ZIP [facility] [place]on e Number [facility] LABORATORY [address] [place] [address] SERVICES (ABNORMAL) CREATININE (05/25/2017 5:59 EDT) Creatinine 0.54 (L) 0.66 - 1.25 [facility] mg/dl LABORATORY SERVICES GFR, Calculated 109 >60 [facility] Comment: ml/min/1.73m2 LABORATORY eGFR calculated using CKD-EPI equation for SERVICES non Americans. Multiply eGFR by 1.16 for Americans. Specimen Blood specimen (specimen) - Blood Performing Organization Address City/State/ZIP Code Phon e Number [facility] LABORATORY [address] [place] [address] SERVICES (ABNORMAL) HEMAGRAM (05/25/2017 5:59 EDT) Pathologist Sig nature WBC 6.99 4.0 - 10.4 K/cmm [facility] LABORATORY SERVICES RBC 3.16 (L) 4.36 - 5.78 [facility] Hemoglobin 10.5 (L) 13.8 - 17.3 gm/dl [facility] LABORATORY SERVICES HCT 29.5 (L) 39.5 - 50.2 % [facility] LABORATORY SERVICES MCV 93 81 - 95 fl [facility] LABORATORY SERVICES MCH 33.2 (H) 27.6 - 33.0 pg [facility] LABORATORY SERVICES MCHC 35.6 32.8 - 36.4 gm/dl [facility] LABORATORY SERVICES RDW-CV 11.2 <14.2 % [facility] LABORATORY SERVICES RDW-SD 38.8 <46.0 fl [facility] LABORATORY SERVICES PLT 290 141 - 377 K/cmm [facility] LABORATORY SERVICES MPV 10.7 9.5 - 12.7 fl [facility] LABORATORY SERVICES Specimen Blood specimen (specimen) - Blood Performing Organization Address City/[facility]/ZIP Code Phon e Number [facility] LABORATORY [address] [place] [address] SERVICES (ABNORMAL) ELECTROLYTES (05/24/2017 18:02 EDT) Pathologist Sig nature Sodium 127 (L) 136 - 145 mEq/L [facility] LABORA TORY SERVICES Potassium 3.7 3.5 - 5.0 mEq/L [facility] LABORA TORY SERVICES Chloride 80 (L) 96 - 110 mEq/L [facility] LABORAT ORY SERVICES CO2 37 (H) 22 - 32 mEq/L [facility] LABORATO RY SERVICES Specimen Blood specimen (specimen) - Blood Performing Organization Address City/State/ZIP Code Phon e Number [facility] LABORATORY [address] [place] [address] SERVICES [facility] 12-LEAD (05/24/2017 7:22 EDT) Specimen Narrative [facility] - 05/28/2017 9:56 EDT ? [facility] ? Test Date: ?2017-05-24 Pat Name: ? DAVID MERA ?Department: ?? [facility] 5 ? Room: ? MW531 Gender: ? M ?Director Of Agronomy: ?? [id number] : ?1950 ? Requested By: PRADIP MONET Order Number: [id number] ? Reading MD: ?? ERVIN WILHELM MD ? Measurements Intervals ?[place] ? Rate: ? 103 ?P: ?-19 NJ: ? 232 ?QRS: ?-39 QRSD: ? 192 ?T: ?168 QT: ? 412 ? QTc: ?542 ? Interpretive Statements ELECTRONIC VENTRICULAR PACEMAKER Compared to ECG 05/23/2017 07:20:54 No significant changes I reviewed the tracing and have either a greed or edited the findings in this report. Electronically Signed On 09:56:53 EDT by ERVIN WILHELM MD. Procedure Note Ervin Wilhelm MD - 05/28/2017 [facility] r Test Date: 2017-05-24 Pat Name: DAVID MERA Department: BUD Chao Room: [facility] Gender: M Director Of Agronomy: [id number] : 1950 Requested By: PRADIP MANNING Order Number: [id number] Reading MD: Hallie WILHELM MD Measurements Intervals Mary [place] Rate: 103 P: -19 NJ: 232 QRS: -39 QRSD: 192 T: 168 QT: 412 QTc: 542 Interpretive Statements ELECTRONIC VENTRICULAR PACEMAKER Compared to ECG 05/23/2017 07:20:54 No significant changes I reviewed the tracing and have either a greed or edited the findings in this report. Electronically Signed On 8 09:56:53 EDT by ERVIN WILHELM MD. Performing Organization Address City/State/ZIP Code Phon e Number [facility] EKG (ABNORMAL) ELECTROLYTES (05/24/2017 5:51 EDT) Pathologist Sig nature Sodium 128 (L) 136 - 145 mEq/L [facility] LABORA TORY SERVICES Potassium 3.9 3.5 - 5.0 mEq/L [facility] LABORA TORY SERVICES Chloride 83 (L) 96 - 110 mEq/L [facility] LABORAT ORY SERVICES CO2 36 (H) 22 - 32 mEq/L [facility] LABORATO RY SERVICES Specimen Blood specimen (specimen) - Blood Performing Organization Address City/State/ZIP Code Phon e Number [facility] LABORATORY [address] [place] [address] SERVICES (ABNORMAL) BUN (05/24/2017 5:51 EDT) Pathologist Sig nature BUN 9 (L) 10 - 26 mg/dl [facility] Specimen Blood specimen (specimen) - Blood Performing Organization Address City/State/ZIP Code Phon e Number [facility] LABORATORY [address] [place] [address] SERVICES MAGNESIUM (05/24/2017 5:51 EDT) Pathologist Sig nature Magnesium 1.7 1.7 - 2.8 mg/dl [facility] LABORA TORY SERVICES Specimen Blood specimen (specimen) - Blood Performing Organization Address City/State/ZIP Code Phon e Number [facility] LABORATORY [address] [place] [address] SERVICES (ABNORMAL) CREATININE (05/24/2017 5:51 EDT) Creatinine 0.59 (L) 0.66 - 1.25 [facility] mg/dl LABORATORY SERVICES GFR, Calculated 105 >60 [facility] Comment: ml/min/1.73m2 LABORATORY eGFR calculated using CKD-EPI equation for SERVICES non Americans. Multiply eGFR by 1.16 for Americans. Specimen Blood specimen (specimen) - Blood Performing Organization Address City/State/ZIP Code Phon e Number [facility] LABORATORY [address] [place] [address] SERVICES (ABNORMAL) HEMAGRAM (05/24/2017 5:51 EDT) Pathologist Sig nature WBC 7.61 4.0 - 10.4 K/cmm [facility] LABORATORY SERVICES RBC 3.35 (L) 4.36 - 5.78 M/cmm [facility] LABORATORY SERVICES Hemoglobin 11.0 (L) 13.8 - 17.3 gm/dl [facility] LABORATORY SERVICES HCT 31.4 (L) 39.5 - 50.2 % [facility] LABORATORY SERVICES MCV 94 81 - 95 fl [facility] LABORATORY SERVICES MCH 32.8 27.6 - 33.0 pg [facility] LABORATORY SERVICES MCHC 35.0 32.8 - 36.4 gm/dl [facility] LABORATORY SERVICES RDW-CV 11.4 <14.2 % [facility] LABORATORY SERVICES RDW-SD 39.0 <46.0 fl [facility] LABORATORY SERVICES PLT 273 141 - 377 K/cmm [facility] LABORATORY SERVICES MPV 10.9 9.5 - 12.7 fl [facility] LABORATORY SERVICES Specimen Blood specimen (specimen) - Blood Performing Organization Address City/[facility]/ZIP Code Phon e Number [facility] LABORATORY [address] [place] [address] SERVICES (ABNORMAL) ELECTROLYTES (05/23/2017 21:40 EDT) Pathologist Sig nature Sodium 128 (L) 136 - 145 mEq/L [facility] LABORA TORY SERVICES Potassium 3.6 3.5 - 5.0 mEq/L [facility] LABORA TORY SERVICES Chloride 81 (L) 96 - 110 mEq/L [facility] LABORAT ORY SERVICES CO2 38 (H) 22 - 32 mEq/L [facility] LABORATO RY SERVICES Specimen Blood specimen (specimen) - Blood Performing Organization Address City/[facility]/ZIP Code Phon e Number [facility] LABORATORY [address] [place] [address] SERVICES (ABNORMAL) ELECTROLYTES (05/23/2017 12:16 EDT) Pathologist Sig nature Sodium 126 (L) 136 - 145 mEq/L [facility] LABORA TORY SERVICES Potassium 3.7 3.5 - 5.0 mEq/L [facility] LABORA TORY SERVICES Chloride 81 (L) 96 - 110 mEq/L [facility] LABORAT ORY SERVICES CO2 36 (H) 22 - 32 mEq/L [facility] LABORATO RY SERVICES Specimen Blood specimen (specimen) - Blood Performing Organization Address City/State/ZIP Code Phon e Number [facility] LABORATORY [address] [place] [address] SERVICES ECHOCARDIOGRAM LIMITED (05/23/2017 10:59 EDT) Specimen Narrative [facility] CARDIOLOGY MAIN [facility] S - 05/23/2017 11:19 EDT *Interpreting Group:* *[facility]* [address] [place] [address] Date of study: 05/23/2017 Transthoracic Echocardiography M-mode, [...] ?Akash Reyes MD ATTENDING ?Tony Rosenberg MD HABILITATION WORKER ??Hali Del Real [facility] PERFORMING ?? [facility] ORDERING ? Jayne Landry REFERRING ?Katia Mccallum *PROCEDURE DATA* Procedure information: ??This study was interpreted by [facility]. Pertin ent images [...] Andrade MD - 05/23/2017 *Interpreting Group:* *[facility]* [address] [place] [address] Date of study: 05/23/2017 Transthoracic Echocardiography M-mode, [...] Akash Reyes MD ATTENDING Tony Rosenberg MD HABILITATION WORKER Hali Del Real JUST[facility] PERFORMING [facility] ORDERING Jayne Landry Katelyn Doran *PROCEDURE DATA* Procedure information: This study was in terpreted by [facility]. Pertin ent images [...] Andrade MD 05/23/2017 11:19 Performing Organization Address City/[facility]/ZIP Code Phon e Number [facility] CARDIOLOGY MAIN CAMPUS FLUID DIFFERENTIAL (05/23/2017 7:47 EDT) Pathologist Sig nature Neutrophils, Fluid 30 % [facility] LABORATORY SERVICES Lymphocytes, Fluid 64 % [facility] LABORATORY SERVICES Zapata/Macro, Fluid 5 % [facility] LABORATORY SERVICES Eosinophil, Fluid 1 % [facility] LABORATORY SERVICES Specimen Pericardial Fluid Performing Organization Address City/[facility]/ZIP Code Phon e Number [facility] LABORATORY [address] [place] [address] SERVICES FUNGUS CULTURE/SMEAR, OTHER (05/23/2017 7:47 EDT) Pathologist Sig nature Fungal Smear No fungi seen [facility] LABORATORY SERVICES Result No fungi isolated [facility] LABORATORY SERVICES Specimen FOSMIC - Pericardial Fluid Performing Organization Address City/[facility]/ZIP Code Phon e Number [facility] LABORATORY [address] [place] [address] SERVICES ANAEROBE CULTURE/SMEAR(INC. AEROBES), FLUID (05/23/2017 7:47 EDT) Gram Smear Result Few [facility] Polys LABORATORY SERVICES Gram Smear Result No bacteria seen [facility] LABORATORY SERVICES Result No growth [facility] LABORATORY SERVICES Specimen FOSMIC - Pericardial Fluid Performing Organization Address City/[facility]/ZIP Code Phon e Number [facility] LABORATORY [address] [place] [address] SERVICES HEMATOCRIT, BODY FLUID (05/23/2017 7:47 EDT) Hematocrit,Body 6.5Comment: % [facility] Fld PERICARDIAL FLUID LABORATORY SERVICES Specimen FOSCHM - Pericardial Fluid Performing Organization Address City/[facility]/ZIP Code Phon e Number [facility] LABORATORY [address] [place] [address] SERVICES FLUID CELL COUNT (05/23/2017 7:47 EDT) Pathologist Sig nature RBC, Fluid 661,000 /cmm [facility] LABORATORY SERVICES Nucleated Cells 1,773 /cmm [facility] LABORATORY SERVICES Fluid Comment Markedly bloody [facility] LABORATORY SERVICES Specimen FOSCHM - Pericardial Fluid Performing Organization Address City/[facility]/ZIP Code Phon e Number [facility] LABORATORY [address] [place] [address] SERVICES TOTAL PROTEIN, FLUID (05/23/2017 7:47 EDT) Protein, Fluid 5.5 g/dl [facility] Comment: LABORATORY SERVICES Reference Range: Pleural fluid [...] FOSCHM - Pericardial Fluid Performing Organization Address [facility] [place] e Number [facility] LABORATORY [address] [place] [address] SERVICES LDH, FLUID (05/23/2017 7:47 EDT) Pathologist Sig nature LDH, Fluid 2,337 U/L [facility] Comment: LABORATORY SERVICES Pleural fluid specimen (specimen) [...] FOSCHM - Pericardial Fluid Performing Organization Address [facility] e Number [facility] LABORATORY [address] [place] [address] SERVICES GLUCOSE, FLUID (05/23/2017 7:47 EDT) Glucose, Fluid 54 mg/dl [facility] Comment: LABORATORY SERVICES Reference Range: Pleural fluid [...] FOSCHM - Pericardial Fluid Performing Organization Address [facility] [place]/ZIP Code Phon e Number [facility] LABORATORY [address] [place] [address] SERVICES ALBUMIN, FLUID (05/23/2017 7:47 EDT) Albumin, Fluid 2.5 g/dl [facility] Comment: LABORATORY SERVICES Reference Range: Pleural fluid [...] FOSCHM - Pericardial Fluid Performing Organization Address [facility] [place] Phon e Number [facility] LABORATORY [address] [place] [address] SERVICES EKG 12-LEAD (05/23/2017 7:20 EDT) Specimen Narrative [facility] EKG - 05/23/2017 11:4 5 EDT ? [facility] ? Test Date: ?2017-05-23 Pat Name: ? DAVID MERA ?Department: ?? [facility] 5 ? Room: ? MW531 Gender: ? M ?Director Of Agronomy: ?? [id number] : ?1950 ? Requested By: PRADIP MONET Order Number: [id number] ? Reading : ?? MARCO A FOX MD ? Measurements Intervals ?Mary Esther ? Rate: ? 102 ?P: ? NJ: ? 0 ?QRS: ?-20 QRSD: ? 189 ?T: ?178 QT: ? 398 ? QTc: ?519 ? Interpretive Statements ELECTRONIC VENTRICULAR PACEMAKER ABNORMAL RHYTHM ECG I reviewed the tracing and have either a greed or edited the findings in this report. Electronically Signed On 8 11:45:47 EDT by MARCO A FOX MD. Procedure Note Marco A Fox MD - 05/23/2017 [facility] Test Date: 2017-05-23 Pat Name: DAVID MERA Department: BUD Pagan Zhanna Room: [facility] Gender: M Director Of Agronomy: [id number] : 1950 Requested By: PRADIP MANNING Order Number: [id number] Reading MD: Hallie FOX MD Measurements Intervals Mary Esther Rate: 102 P: NJ: 0 QRS: -20 QRSD: 189 T: 178 QT: 398 QTc: 519 Interpretive Statements ELECTRONIC VENTRICULAR PACEMAKER ABNORMAL RHYTHM ECG I reviewed the tracing and have either a greed or edited the findings in this report. Electronically Signed On 8 11:45:47 EDT by MARCO A FOX MD. Performing Organization Address City/State/ZIP Code Phon e Number [facility] EKG (ABNORMAL) ELECTROLYTES (05/23/2017 6:42 EDT) Pathologist Sig nature Sodium 124 (LL) 136 - 145 mEq/L [facility] LABORATORY SERVICES Potassium 3.5 3.5 - 5.0 mEq/L [facility] LABORATORY SERVICES Chloride 84 (L) 96 - 110 mEq/L [facility] LABORATORY SERVICES CO2 33 (H) 22 - 32 mEq/L [facility] LABORATORY SERVICES Specimen Blood specimen (specimen) - Blood Performing Organization Address [facility] [place]/ZIP Code Phon e Number [facility] LABORATORY [address] [place] [address] SERVICES BUN (05/23/2017 6:42 EDT) Pathologist Sig nature BUN 10 10 - 26 mg/dl [facility] LABORATO RY SERVICES Specimen Blood specimen (specimen) - Blood Performing Organization Address City/[facility]/ZIP Code Phon e Number [facility] LABORATORY [address] [place] [address] SERVICES MAGNESIUM (05/23/2017 6:42 EDT) Pathologist Sig nature Magnesium 1.7 1.7 - 2.8 mg/dl [facility] LABORA TORY SERVICES Specimen Blood specimen (specimen) - Blood Performing Organization Address [facility] [place]/ZIP Code Phon e Number [facility] LABOR[facility]ORY [address] [place] [address] SERVICES (ABNORMAL) CREATININE (05/23/2017 6:42 EDT) Creatinine 0.50 (L) 0.66 - 1.25 [facility] mg/dl LABORATORY SERVICES GFR, Calculated 113 >60 [facility] Comment: ml/min/1.73m2 LABORATORY eGFR calculated using CKD-EPI equation for SERVICES non Americans. Multiply eGFR by 1.16 for Americans. Specimen Blood specimen (specimen) - Blood Performing Organization Address City/[facility]/ZIP Code Phon e Number [facility] LABORATORY [address] [place] [address] SERVICES (ABNORMAL) HEMAGRAM (05/23/2017 6:42 EDT) Pathologist Sig nature WBC 8.96 4.0 - 10.4 K/cmm [facility] LABORATORY SERVICES RBC 3.30 (L) 4.36 - 5.78 [facility] Hemoglobin 11.0 (L) 13.8 - 17.3 gm/dl [facility] LABORATORY SERVICES HCT 30.8 (L) 39.5 - 50.2 % [facility] LABORATORY SERVICES MCV 93 81 - 95 fl [facility] LABORATORY SERVICES MCH 33.3 (H) 27.6 - 33.0 pg [facility] LABORATORY SERVICES MCHC 35.7 32.8 - 36.4 gm/dl [facility] LABORATORY SERVICES RDW-CV 11.3 <14.2 % [facility] LABORATORY SERVICES RDW-SD 38.5 <46.0 fl [facility] LABORATORY SERVICES PLT 254 141 - 377 [facility] MPV 11.2 9.5 - 12.7 fl [facility] LABORATORY SERVICES Specimen Blood specimen (specimen) - Blood Performing Organization Address City/[facility]/ZIP [facility] [place] e Number [facility] [address] [place] [address] SERVICES CYTOPATHOLOGY (05/23/2017 0:00 EDT) Pathology Report: CYTOPATHOLOGY REPORT [facility] Reports generated via electronic interface contain jacquelyn ginal data; SERVICES however they are lacking the format of the original re port. Caution should be taken when reading/interpreting unfo rmatted reports. Name: ? DAVID MERA ? Accession #: ? [id number] : ? 1950 (Age: 66) ??M ?Collect [...] Organization Address City/State/ZIP Code Phon e Number [facility] [address] [place] [address] SERVICES (ABNORMAL) ELECTROLYTES (05/22/2017 23:40 EDT) Pathologist Sig nature Sodium 125 (L) 136 - 145 mEq/L [facility] SERVICES Potassium 3.3 (L) 3.5 - 5.0 mEq/L [facility] SERVICES Chloride 84 (L) 96 - 110 mEq/L [facility] ORY SERVICES CO2 33 (H) 22 - 32 mEq/L [facility] RY SERVICES Specimen Blood specimen (specimen) - Blood Performing Organization Address City/[facility]/ZIP Code Phon e Number [facility] [address] [place] [address] SERVICES (ABNORMAL) ELECTROLYTES (05/22/2017 18:36 EDT) Pathologist Sig nature Sodium 124 (LL)Comment: 136 - 145 mEq/L [facility] Slight hemolysis LABORATORY SERVICES Potassium 3.9 3.5 - 5.0 mEq/L [facility] Comment: LABORATORY SERVICES Slight hemolysis Hemolysis may elevate potassium result. Chloride 81 (L)Comment: 96 - 110 mEq/L [facility] Slight hemolysis LABORATORY SERVICES CO2 32Comment: Slight 22 - 32 mEq/L [facility] hemolysis LABORATORY SERVICES Specimen Blood specimen (specimen) - Blood Performing Organization Address [facility] [place] Code Phon e Number [facility] [address] [place] [address] SERVICES CHEST PA AND LATERAL (05/22/2017 14:43 EDT) Anatomical Region Laterality Modality Other Specimen Narrative [facility]IOLOG[facility]IN C[facility] - 05/22/2017 15:28 EDT CHEST PA AND [...] diaphragm less well seen. Performing Organization Address City/[facility]/ZIP Code Phon e Number [facility] (ABNORMAL) ELECTROLYTES (05/22/2017 12:36 EDT) Pathologist Sig nature Sodium 121 (LL)Comment: 136 - 145 mEq/L [facility] Moderate hemolysis LABORATORY SERVICES Potassium 5.3 (H) 3.5 - 5.0 mEq/L [facility] Comment: LABORATORY SERVICES Moderate hemolysis Hemolysis may elevate potassium result. Chloride 85 (L)Comment: 96 - 110 mEq/L [facility] Moderate hemolysis LABORATORY SERVICES CO2 27Comment: Moderate 22 - 32 mEq/L [facility] hemolysis LABORATORY SERVICES Specimen Blood specimen (specimen) - Blood Performing Organization Address [facility] [place]/[facility]/ZIP Code Phon e Number [facility] [address] [place] [address] SERVICES BACTERIAL CULTURE, BLOOD (05/22/2017 9:58 EDT) Pathologist Sig nature Result No growth [facility] LABORATOR Y SERVICES Specimen Blood specimen (specimen) - Blood Performing Organization Address [facility] [place]/[facility]/ZIP Code Phon e Number [facility] [address] [place] [id number] SERVICES BACTERIAL CULTURE, BLOOD (05/22/2017 9:58 EDT) Pathologist Sig nature Result No growth [facility] LABORATOR Y SERVICES Specimen Blood specimen (specimen) - Blood Performing Organization Address [facility] [place] Phon e Number [facility] [address] [place] [address] SERVICES EKG 12-LEAD (05/22/2017 8:04 EDT) Specimen Narrative [facility] EKG - 05/26/2017 12:5 0 EDT ? [facility] ? Test Date: ?2017-05-22 Pat Name: ? DAVID MERA ?Department: ?? [facility] 5 ? Room: ? MW531 Gender: ? M ?Director Of Agronomy: ?? [id number] : ?1950 ? Requested By: PRADIP MONET Order Number: [id number] ? Reading MD: ?? GAGAN RAMOS MD ? Measurements Intervals ?Mary Esther ? Rate: ? 115 ?P: ?-20 NJ: ? 237 ?QRS: ?-24 QRSD: ? 177 [...] Note Gagan Ramos MD - 05/26/2017 [facility] Test Date: 2017-05-22 Pat Name: DAVID MERA Department: BUD Chao Room: [facility] Gender: M Director Of Agronomy: [id number] : 1950 Requested By: PRADIP MANNING Order Number: [id number] Reading MD: Vern RAMOS MD Measurements Intervals Mary Esther Rate: 115 P: -20 NJ: 237 QRS: -24 QRSD: 177 T: 172 QT: 357 QTc: 496 Interpretive Statements ELECTRONIC VENTRICULAR PACEMAKER ABNORMAL RHYTHM ECG Compared to ECG 05/21/2017 20:29:55 No significant changes I reviewed the tracing and have either a greed or edited the findings in this report. Electronically Signed On 12:50:27 EDT by GAGAN RAMOS MD. Performing Organization Address City/[facility]/ZIP Code Phon e Number [facility] EKG BUN (05/22/2017 4:09 EDT) Pathologist Sig nature BUN 11 10 - 26 mg/dl [facility]OR[facility]O RY SERVICES Specimen Blood specimen (specimen) - Blood Performing Organization Address [facility] [place]/[facility]/ZIP Code Phon e Number [facility] [address] [place] [address] SERVICES MAGNESIUM (05/22/2017 4:09 EDT) Pathologist Sig nature Magnesium 2.1 1.7 - 2.8 mg/dl [facility] SERVICES Specimen Blood specimen (specimen) - Blood Performing Organization Address City/State/ZIP Code Phon e Number [facility] [address] [place] [address] SERVICES (ABNORMAL) CREATININE (05/22/2017 4:09 EDT) Creatinine 0.56 (L) 0.66 - 1.25 [facility] mg/dl LABORATORY SERVICES GFR, Calculated 108 >60 [facility] Comment: ml/min/1.73m2 LABORATORY eGFR calculated using CKD-EPI equation for SERVICES non Americans. Multiply eGFR by 1.16 for Americans. Specimen Blood specimen (specimen) - Blood Performing Organization Address City/[facility]/ZIP Code Phon e Number [facility] [address] [place] [address] SERVICES (ABNORMAL) HEMAGRAM (05/22/2017 4:09 EDT) Pathologist Sig nature WBC 10.75 (H) 4.0 - 10.4 K/cmm [facility] SERVICES RBC 3.70 (L) 4.36 - 5.78 M/cmm [facility] SERVICES Hemoglobin 12.2 (L) 13.8 - 17.3 gm/dl [facility] SERVICES HCT 34.1 (L) 39.5 - 50.2 % [facility] SERVICES MCV 92 81 - 95 fl [facility] SERVICES MCH 33.0 27.6 - 33.0 pg [facility] SERVICES MCHC 35.8 32.8 - 36.4 gm/dl [facility] SERVICES RDW-CV 10.9 <14.2 % [facility] SERVICES RDW-SD 37.2 <46.0 fl [facility] SERVICES PLT 294 141 - 377 K/cmm [facility] SERVICES MPV 10.7 9.5 - 12.7 fl [facility] SERVICES Specimen Blood specimen (specimen) - Blood Performing Organization Address City/State/ZIP Code Phon e Number [facility] [address] [place] [address] SERVICES (ABNORMAL) ELECTROLYTES (05/22/2017 4:09 EDT) Pathologist Sig nature Sodium 122 (LL) 136 - 145 mEq/L [facility] SERVICES Potassium 4.0 3.5 - 5.0 mEq/L [facility] SERVICES Chloride 84 (L) 96 - 110 mEq/L [facility] SERVICES CO2 29 22 - 32 mEq/L [facility] SERVICES Specimen Blood specimen (specimen) - Blood Performing Organization Address City/State/ZIP Code Phon e Number [facility] [address] [place] [address] SERVICES (ABNORMAL) ELECTROLYTES (05/22/2017 0:23 EDT) Pathologist Sig nature Sodium 120 (LL) 136 - 145 mEq/L [facility] SERVICES Potassium 3.4 (L) 3.5 - 5.0 mEq/L [facility] SERVICES Chloride 83 (L) 96 - 110 mEq/L [facility] SERVICES CO2 31 22 - 32 mEq/L [facility] SERVICES Specimen Blood specimen (specimen) - Blood Performing Organization Address City/State/ZIP Code Phon e Number [facility] [address] [place] [address] SERVICES EKG 12-LEAD (05/21/2017 20:29 EDT) Specimen Narrative [facility] EKG - 05/30/2017 11:5 5 EDT ? [facility] ? Test Date: ?2017-05-21 Pat Name: ? DAVID MERA ?Department: ?? [facility] 5 ? Room: ? MW531 Gender: ? M ?Director Of Agronomy: ?? [id number] : ?1950 ? Requested By: ROBLES Cabral Order Number: [id number] ? Reading MD: ?? ASHLEY EDWARDS MD ? Measurements Intervals ?Mary Esther ? Rate: ? 109 ?P: ? NJ: ? 0 ?QRS: ?-41 QRSD: ? 179 [...] Ashley Edwards Jr., MD - 05/30/2017 [facility] Test Date: 2017-05-21 Pat Name: DAVID MERA Department: BUD Chao Room: [facility] Gender: M Director Of Agronomy: [id number] : 1950 Requested By: ROBLES Cabral Order Number: [id number] Martha MD: Elsa EDWARDS MD Measurements Intervals Mary Esther Rate: 109 P: NJ: 0 QRS: -41 QRSD: 179 T: 175 QT: 391 QTc: 528 Interpretive Statements ELECTRONIC VENTRICULAR PACEMAKER ABNORMAL RHYTHM ECG Compared to ECG 05/21/2017 07:12:25 No significant changes I reviewed the tracing and have either a greed or edited the findings in this report. Electronically Signed On 8 11:55:09 EDT by ASHLEY EDWARDS MD. Performing Organization Address City/State/ZIP Code Phon e Number [facility] EKG PORTABLE CHEST 1 VIEW (05/21/2017 20:25 EDT) Anatomical Region Laterality Modality Other Specimen Narrative [facility]IN [facility] - 05/21/2017 20:35 EDT [...] Organization Address City/State/ZIP Code Phon e Number [facility] (ABNORMAL) ELECTROLYTES (05/21/2017 20:08 EDT) Pathologist Sig nature Sodium 121 (LL) 136 - 145 mEq/L [facility] SERVICES Potassium 3.7 3.5 - 5.0 mEq/L [facility] SERVICES Chloride 79 (L) 96 - 110 mEq/L [facility] SERVICES CO2 32 22 - 32 mEq/L [facility] SERVICES Specimen Blood specimen (specimen) - Blood Performing Organization Address City/[facility]/ZIP Code Phon e Number [facility] [address] [place] [address] SERVICES PERMANENT PACEMAKER PROCEDURE (05/21/2017 19:42 EDT) Specimen Narrative [facility]OLOGY [facility] [place] - 05/21/2017 20:01 EDT *Cardiology* [address] [place] [address] Lead Revision Patient: David Mera ? Study Date: ?05/21/2017 ? Accession #: ? [id number] : ? 1950 Referring: Katia Mccallum Attending: [...] and the lead was extracted. A 7 Serbian safety sheath was advanced ov er the [...] topical skin adhesive. IMPLANTED HARDWARE: Implanted device: Traffio - [employer] [facility] - Serial number: [id number]. Implanted originally on 05-02-2017 . LEAD PARAMETERS + + +---- + + Lead # ? 1 ? 1 ? 2 ? + + +---- + + Chamber ? RA ? RA ? RV ? + + +---- + + Date implanted ?? 05/02/2017 ? 05/21/2017 ? 05/02/2017 ? + + +---- + + Model ? [employer] Medtronic [employer] [place] [employer] 5802 ?? information ? 1106 ? Secure-59 [id number] ? + + +---- + + Serial number ?? [id number] ? [id number] ? [id number] ? + + +---- + + Location [...] results, any complications, and treatment plan to [facility] members and patient support persons who were present at the conclusi on of the procedure. POST PROCEDURAL DISPOSITION: Patient was admitted as an inpatient mello or to this procedure. Electronically signed by Seng Rand MD, PhD 05/21/2017 20:01 Procedure Note Seng Rand MD - 05/21/2017 *Cardiology* [address] [place] [address] Lead Revision Patient: David Mera Study Date: [...] tail drainage catheter was placed in the ewndy cardium and 720 cc serosanguinous fluid was [...] and the lead was extracted. A 7 Serbian safety sheath was advanced ov er the [...] topical skin adhesive. IMPLANTED HARDWARE: Implanted device: Traffio - pbsi sentio PPM - Serial number: [id number]. Implanted originally on 05-02-2017 . LEAD PARAMETERS + + +---- + + Lead # 1 1 2 + + +---- + + Chamber RA RA RV + + +---- + + Date implanted 05/02/2017 05/21/2017 05/02/2017 + + +---- + + Model [employer] Medtronic [place] [address] [place] [employer] 7742 information 7740 Secure-59 [id number] + + +---- + + Serial number [id number] + + +---- + + [...] results, any complications, and treatment plan to [facility] members and patient support persons who were present at the conclusi on of the procedure. POST PROCEDURAL DISPOSITION: Patient was admitted as an inpatient mello or to this procedure. Electronically signed by Seng Rand MD, PhD 05/21/2017 20:01 Performing Organization Address City/[facility]/ZIP Code Phon e Number [facility] CARDIOLOGY MAIN CAMPUS INPATIENT ADD-ON (05/21/2017 18:20 EDT) Pathologist Sig nature Tests to be added FREE T4,TSH [facility] SERVICES Number for problems [id number] [facility] SERVICES Accession number [id number] [facility] [id number] LABORATORY SERVICES Specimen Other Performing Organization Address City/State/ZIP Code Phon e Number [facility] [address] [place] [address] SERVICES CREATININE, URINE RANDOM (05/21/2017 18:20 EDT) Pathologist Sig nature Creatinine, Urn Lamont 26.2 mg/dl [facility] SERVICES Specimen Urine (substance) - Urine Performing Organization Address [facility] [place]/[facility]/ZIP Code Phon e Number [facility] [address] [place] [address] SERVICES PROTEIN, TOTAL, RANDOM, URINE (05/21/2017 18:20 EDT) Pathologist Sig nature Tot Prot,Ur Random 21 mg/dl [facility] SERVICES Specimen Urine (substance) - Urine Performing Organization Address [facility] [place] Phon e Number [facility] [address] [place] [address] SERVICES ECHOCARDIOGRAM LIMITED (05/21/2017 18:19 EDT) Specimen Narrative [facility]ARDIOLOGY MAIN [facility] S - 05/22/2017 8:34 EDT *Interpreting Group:* *[facility]* [address] [place] [address] Date of study: 05/21/2017 Transthoracic Echocardiography M-mode, [...] stop time: ??07:33 PM. PERFORMING ?? [facility], [employer]p HABILITATION WORKER ??Emilia Corey RDCS *PROCEDURE DATA* Procedure information: ??This study was interpreted by [facility]. Pertin ent images [...] Rubio MD - 05/22/2017 *Interpreting Group:* *[facility]* [address] [place] [id number] Date of study: 05/21/2017 Transthoracic Echocardiography M-mode, [...] stop time: 07:33 PM. PERFORMING [facility], [employer]p HABILITATION WORKER Emilia Corey RDCS *PROCEDURE DATA* Procedure information: This study was in terpreted by [facility]. Pertin ent images [...] Rubio MD 05/22/2017 08:34 Performing Organization Address City/[facility]/ZIP Code Phon e Number [facility] C[facility] TSH (05/21/2017 14:02 EDT) Pathologist Sig nature TSH 0.60 0.47 - 4.68 uIU/ml [facility] SERVICES Specimen Blood Performing Organization Address City/State/ZIP Code Phon e Number [facility] [address] [place] [address] SERVICES T4 FREE (05/21/2017 14:02 EDT) Pathologist Sig nature T4, Free 1.5 0.8 - 2.2 ng/dl [facility] SERVICES Specimen Blood Performing Organization Address City/[facility]/ZIP Code Phon e Number [facility] [address] [place] [address] SERVICES (ABNORMAL) ELECTROLYTES (05/21/2017 14:02 EDT) Pathologist Sig nature Sodium 116 (LL) 136 - 145 mEq/L [facility] SERVICES Potassium 4.1 3.5 - 5.0 mEq/L [facility] SERVICES Chloride 78 (L) 96 - 110 mEq/L [facility] SERVICES CO2 28 22 - 32 mEq/L [facility] SERVICES Specimen Blood specimen (specimen) - Blood Performing Organization Address City/State/ZIP Code Phon e Number [facility] [address] [place] [address] SERVICES ECHOCARDIOGRAM (05/21/2017 10:30 EDT) Specimen Narrative [facility]IN [facility] S - 05/21/2017 10:48 EDT *Interpreting Group:* *[facility]* [address] [place] [address] Date of study: 05/21/2017 Transthoracic Echocardiography M-mode, [...] [facility], Ip ORDERING ? Maria Antonia Zimmerman HABILITATION WORKER ??Lizette, Jose G REFERRING ?Katia Mccallum *PROCEDURE DATA* Procedure information: ??The patient was identified by two identifiers. This study was interpreted by [facility]. Pertinent images and [...] Andrade MD - 05/21/2017 *Interpreting Group:* *[facility]* [address] [place] [address] Date of study: 05/21/2017 Transthoracic Echocardiography M-mode, [...] PERFORMING [facility], Ip ORDERING Maria Antonia Zimmerman HABILITATION WORKER Jose G Bauer Katelyn Doran *PROCEDURE DATA* Procedure information: The patient was i dentified by two identifiers. This study was interpreted by [facility]. Pertinent images and digital data are archived for permanent storage and are available for subsequent review. Study status: Routine. Transthoracic echocardiography. M-mode, complete 2D, complete spectral Doppler, and color Doppler. A T ransthoracic Echocardiogram was performed. Scanning was performed from t he parasternal, apical, subcostal, and suprasternal notch acoust ic windows. Images were obtained using an [employer] 13 cardiac ultrasound mach ine. Image quality [...] Organization Address City/State/ZIP Code Phon e Number [facility] CARDIOLOGY MAIN CAMPUS (ABNORMAL) ELECTROLYTES (05/21/2017 9:55 EDT) Pathologist [facility] nature Sodium 117 (LL) 136 - 145 mEq/L [facility] SERVICES Potassium 3.7 3.5 - 5.0 mEq/L [facility] SERVICES Chloride 77 (L) 96 - 110 mEq/L [facility] SERVICES CO2 30 22 - 32 mEq/L [facility] SERVICES Specimen Blood specimen (specimen) - Blood Performing Organization Address City/State/[facility] Code Phon e Number [facility] [address] [place] [address] SERVICES EKG 12-LEAD (05/21/2017 7:12 EDT) Specimen Narrative [facility] EKG - 05/23/2017 15:0 4 EDT ? [facility] ? Test Date: ?2017-05-21 Pat Name: ? DAVID MERA ?Department: ?? [facility] 5 ? Room: ? MW531 Gender: ? M ?Director Of Agronomy: ?? [id number] : ?1950 ? Requested By: PRADIP MONET Order Number: [id number] ? Reading MD: ?? SENG PERSON SA MD ? Measurements Intervals ?Mary Esther ? Rate: ? 75 ? P: ?31 NJ: ? 173 ?QRS: ?-73 QRSD: ? 183 [...] Seng Brody Sa, MD - 05/23/2017 [facility] Test Date: 2017-05-21 Pat Name: DAVID MERA Department: BUD Chao Room: [facility] Gender: M Director Of Agronomy: [id number] : 1950 Requested By: PRADIP MANNING Order Number: [id number] Martha MD: Nithya PERSON SA, MD Measurements Intervals Mary Esther Rate: 75 P: 31 NJ: 173 QRS: -73 QRSD: 183 T: 174 [...] Organization Address City/State/ZIP Code Phon e Number [facility] EKG INPATIENT ADD-ON (05/21/2017 6:55 EDT) Pathologist Sig nature Tests to be added MAGNESIUM [facility] SERVICES Number for problems [id number] [facility] SERVICES Accession number [id number] [facility] SERVICES Specimen Other Performing Organization Address City/State/ZIP Code Phon e Number [facility] [address] [place] [address] SERVICES INPATIENT ADD-ON (05/21/2017 6:40 EDT) Pathologist Sig nature Tests to be added ALT,ALK [facility] PHOS,AST,TOTAL LABORATORY SERVICES BILI,ALBUMIN Number for problems [id number] [facility] SERVICES Accession number [id number] [facility] SERVICES Specimen Other Performing Organization Address City/[facility]/ZIP Code Phon e Number [facility] [address] [place] [address] SERVICES MAGNESIUM (05/21/2017 5:57 EDT) Pathologist Sig nature Magnesium 1.8 1.7 - 2.8 mg/dl [facility] LABORA TORY SERVICES Specimen Blood Performing Organization Address City/[facility]/ZIP [facility] [place] e Number [facility] [address] [place] [address] SERVICES BILIRUBIN, TOTAL (05/21/2017 5:57 EDT) Pathologist Sig nature Bilirubin, Total 0.6 <1.4 mg/dl [facility] LABOR ATORY SERVICES Specimen Blood Performing Organization Address [facility] [place]/ZIP [facility] [place] Number [facility] [address] [place] [address] SERVICES AST (05/21/2017 5:57 EDT) Pathologist Sig nature AST 33 15 - 46 U/L [facility] LABORATOR Y SERVICES Specimen Blood Performing Organization Address City/[facility]/ZIP Code Phon e Number [facility] [address] [place] [address] SERVICES ALT (05/21/2017 5:57 EDT) Pathologist Sig nature ALT 39 21 - 72 U/L [facility] LABORATOR Y SERVICES Specimen Blood Performing Organization Address City/[facility]/ZIP Code Phon e Number [facility] [address] [place] [address] SERVICES ALKALINE PHOSPHATASE (05/21/2017 5:57 EDT) Pathologist Sig nature Total Alkaline 81 38 - 126 U/L [facility] Phosphatase LABORATORY SERVICES Specimen Blood Performing Organization Address City/[facility]/ZIP Code Phon e Number [facility] [address] [place] [address] SERVICES (ABNORMAL) ALBUMIN (05/21/2017 5:57 EDT) Pathologist Sig nature Albumin 3.0 (L) 3.4 - 4.9 g/dl [facility] LABORAT ORY SERVICES Specimen Blood Performing Organization Address City/[facility]/ZIP Code Phon e Number [facility] [address] [place] [address] SERVICES (ABNORMAL) ELECTROLYTES (05/21/2017 5:57 EDT) Pathologist Sig nature Sodium 117 (LL) 136 - 145 mEq/L [facility] SERVICES Potassium 3.5 3.5 - 5.0 mEq/L [facility]OR[facility] SERVICES Chloride 76 (L) 96 - 110 mEq/L [facility] CO2 31 22 - 32 mEq/L [facility] Specimen Blood specimen (specimen) - Blood Performing Organization Address [facility] Phon e Number [facility] [address] [place] [address] SERVICES (ABNORMAL) PROTIME (05/21/2017 5:57 EDT) Pro Time 16.3 (H)Comment: NOTE 10.3 - 13.4 [facility] NEW REFERENCE RANGE secs LABORATORY SERVICE S OF APR 03 2017 I.N.R. 1.4 (H) 0.9 - 1.1 [facility] Comment: Ratio LABORATORY SERVICES Moderate Intensity Coumadin INR = 2.0-3.0 Adjustments in anticoagulant therapy dose should be based upon the INR and NOT the Pro Time. Specimen Blood specimen (specimen) - Blood Performing Organization Address [facility] Phon e Number [facility] [address] [place] [address] SERVICES HIV 1/2 ANTIGEN AND ANTIBODY, 4TH GENERATION (05/21/2017 5:57 EDT) Pathologist [facility] HIV 1/2 Antibody Negative Negative [facility] Comment: LABORATORY SERVICES Fourth generation assay performed on the Siemens Centaur. If acute HIV-1 infection is suspected in a high risk patient, submit plasma specimen for HIV-1 RNA quantification test. Specimen Blood specimen (specimen) - Blood Performing Organization Address [facility]/ZIP [facility] [place] Number [facility] [address] [place] [address] SERVICES (ABNORMAL) BUN (05/21/2017 5:57 EDT) Pathologist Sig nature BUN 5 (L) 10 - 26 mg/dl [facility]ORATO RY SERVICES Specimen Blood specimen (specimen) - Blood Performing Organization Address [facility] Phon e Number [facility] [address] [place] [address] SERVICES (ABNORMAL) CREATININE (05/21/2017 5:57 EDT) Creatinine 0.43 (L) 0.66 - 1.25 [facility] mg/dl LABORATORY SERVICES GFR, Calculated 120 >60 [facility] Comment: ml/min/1.73m2 LABORATORY eGFR calculated using CKD-EPI equation for SERVICES non Americans. Multiply eGFR by 1.16 for Americans. Specimen Blood specimen (specimen) - Blood Performing Organization Address City/State/ZIP Code Phon e Number [facility] [address] [place] [address] SERVICES (ABNORMAL) HEMAGRAM AND DIFFERENTIAL (05/21/2017 5:57 EDT) Pathologist Sig nature WBC 6.90 4.0 - 10.4 [facility] K/counts include 234 beds at the [facility] LABORATORY SERVICES RBC 3.25 (L) 4.36 - 5.78 [facility] M/counts include 234 beds at the [facility] LABORATORY SERVICES Hemoglobin 10.9 (L) 13.8 - 17.3 [facility] gm/dl LABORATORY SERVICES HCT 29.7 (L) 39.5 - 50.2 % [facility] SERVICES MCV 91 81 - 95 fl [facility] MCH 33.5 (H) 27.6 - 33.0 pg [facility] MCHC 36.7 (H) 32.8 - 36.4 [facility] gm/dl LABORATORY SERVICES RDW-CV 10.6 <14.2 % [facility] SERVICES RDW-SD 36.1 <46.0 fl [facility]OR[facility] SERVICES PLT 266 141 - 377 K/[facility] LABORATORY SERVICES MPV 10.7 9.5 - 12.7 fl [facility] SERVICES Neutrophils 61.6 % [facility] SERVICES Lymphocytes 19.0 % [facility] Monocytes 16.7 % [facility] Eosinophils 1.6 % [facility] Basophils 0.7 % [facility] SERVICES Immature Grans 0.4 % [facility] SERVICES ABS Neutrophils 4.25 2.20 - 8.85 [facility] K/counts include 234 beds at the [facility] LABORATORY SERVICES ABS Lymphs 1.31 1.09 - 3.30 [facility]/counts include 234 beds at the [facility] LABORATORY SERVICES ABS Monocytes 1.15 (H) 0.1 - 0.8 /[facility] LABORATORY SERVICES ABS Eosinophils 0.11 0.03 - 0.61 [facility] K/cmm LABORATORY SERVICES ABS Basophils 0.05 0.01 - 0.11 [facility] K/counts include 234 beds at the [facility] LABORATORY SERVICES ABS Immature Grans 0.03 0 - 0.06 /[facility] LABORATORY SERVICES Type of Diff: Automated [facility] SERVICES Specimen Blood specimen (specimen) - Blood Performing Organization Address [facility] Phon e Number [facility] [address] [place] [address] SERVICES (ABNORMAL) ELECTROLYTES (05/21/2017 3:28 EDT) Pathologist Sig nature Sodium 116 (LL) 136 - 145 mEq/L [facility] SERVICES Potassium 3.3 (L) 3.5 - 5.0 mEq/L [facility] SERVICES Chloride 77 (L) 96 - 110 mEq/L [facility] SERVICES CO2 31 22 - 32 mEq/L [facility] SERVICES Specimen Blood specimen (specimen) - Blood Performing Organization Address [facility] Phon e Number [facility] [address] [place] [address] SERVICES EKG 12-LEAD (05/21/2017 1:25 EDT) Specimen Narrative [facility] EKG - 05/23/2017 10:3 5 EDT ? [facility] ? Test Date: ?2017-05-21 Pat Name: ? DAVID MERA ?Department: ?? [facility] 5 ? Room: ? MW531 Gender: ? M ?Director Of Agronomy: ?? [id number] : ?1950 ? Requested By: PRADIP MONET Order Number: [id number] ? Martha OAKES: ?? PIERRE RUBIO MD ? Measurements Intervals ?Mary Esther ? Rate: ? 75 ? P: ?13 [place]: ? 160 ?QRS: ?-81 QRSD: ? 185 [...] Note Pierre Rubio MD - 05/23/2017 [facility] Test Date: 2017-05-21 Pat Name: DAVID MERA Department: BUD Latasha Chao Room: [facility] Gender: M Director Of Agronomy: [id number] : 1950 Requested By: PRADIP MANNING Order Number: [id number] Reading MD: Irish RUBIO MD Measurements Intervals Mary Esther Rate: 75 P: 13 [place]: 160 QRS: -81 QRSD: 185 T: 171 QT: 495 QTc: 556 Interpretive Statements SINUS RHYTHM WITH ATRIAL TRACKING and VE NTRICULAR PACING Compared to ECG 05/03/2017 04:23:33 No significant changes I reviewed the tracing and have either a greed or edited the findings in this report. Electronically Signed On 10:35:38 EDT by PIERRE RUBIO MD. Performing Organization Address [facility] Phon e Number [facility] EKG INPATIENT ADD-ON (05/21/2017 0:00 EDT) Pathologist Sig nature Tests to be added URINE OSM [facility] SERVICES Number for problems Not Given [facility] Accession number [id number] [facility] Specimen Other Performing Organization Address [facility] Phon e Number [facility] [address] [place] [address] SERVICES OSMOLALITY, URINE (05/20/2017 23:45 EDT) Pathologist Sig nature Osmolality, Ur 251 150 - 1,150 mos/kg [facility] SERVICES Specimen Urine Performing Organization Address [facility] Phon e Number [facility] [address] [place] [address] SERVICES SODIUM, URINE RANDOM (05/20/2017 23:45 EDT) Pathologist Sig nature Sodium, Ur 18.0 mEq/L [facility] LABORATOR Y SERVICES Specimen Urine (substance) - Urine Performing Organization Address [facility] Phon e Number [facility] [address] [place] [address] SERVICES CREATININE, URINE RANDOM (05/20/2017 23:45 EDT) Pathologist Sig nature Creatinine, Urn Lamont 43.1 mg/dl [facility] SERVICES Specimen Urine (substance) - Urine Performing Organization Address [facility] Code Phon e Number [facility] [address] [place] [address] SERVICES POCT US CARDIAC (05/20/2017 22:45 EDT) Anatomical Region Laterality Modality Other Specimen Narrative [facility] - 05/20/2017 23:51 EDT [facility] - Ultrasound Exam Date: 05/20/2017 Exam Type: POCT US CARDIAC Records Management Director: Laly Kim MD Attending: Laly Kim MD [...] exam was performed and interpreted by the [facility] ED Staff Procedure Note Laly Kim MD - 05/20/2017 [facility] - Ultrasoun d Exam Date: 05/20/2017 Exam Type: POCT US CARDIAC Records Management Director: Laly Kim MD Attending: Laly Kim MD [...] exam was performed and interpreted by the [facility] ED Staff Performing Organization Address City/State/ZIP Code Phon e Number [facility] (ABNORMAL) BASIC METABOLIC PANEL (BMP) (05/20/2017 22:40 EDT) Sodium 116 (LL) 136 - 145 [facility] mEq/L LABORATORY SERVICES Potassium 3.6 3.5 - 5.0 [facility] mEq/L LABORATORY SERVICES Chloride 74 (L) 96 - 110 [facility] mEq/L LABORATORY SERVICES CO2 32 22 - 32 mEq/L [facility] SERVICES BUN 6 (L) 10 - 26 mg/dl [facility] SERVICES Creatinine 0.44 (L) 0.66 - 1.25 [facility] mg/dl LABORATORY SERVICES GFR, Calculated 119 >60 [facility] Comment: ml/min/1.73m2 LABORATORY eGFR calculated using CKD-EPI equation for SERVICES non Americans. Multiply eGFR by 1.16 for Americans. Calcium 8.7 8.5 - 10.5 [facility] mg/dl LABORATORY SERVICES Calculated Calcium 9.2 8.5 - 10.5 [facility] mg/dl LABORATORY SERVICES Glucose, Serum 108 (H) 70 - 100 [facility] mg/dl LABORATORY SERVICES Fasting? Unknown [facility] SERVICES Specimen Blood specimen (specimen) - Blood Performing Organization Address City/State/ZIP Code Phon e Number [facility] [address] [place] [address] SERVICES documented in this encounter Visit Diagnoses [...] Earl RN) 0829 (Given - Provider: Rupert Ealr RN)1723 (Given - Provider: Rupert Earl RN) [...] 05/27/2017 documented in this encounter Care Teams Young Adult Librarian Relationship Specialty Start Date End Date Katia Mccallum PA-C PCP - General 05/02/17 [address] [place] [id number] documented as of this encounter
--- OUTSIDE RECORDS SUMMARY | 2021-10-24 18:19 | XMS_ITS | Encounter Summary ---
:1950 Author Organization [facility] [place] [address] Care Team Providers Name Role Phone Katia Mccallum Primary Care Provider Encounter Details Date Type Department Care Team Description 11/25/2019 Telephone [place] [facility] [place]la Ochoa RN [facility] [place] [address] Social History Tobacco Use Types Packs/Day Years Used Date Never Assessed Sex Assigned at Date Recorded Not on file documented as of this encounter Miscellaneous Notes Telephone Encounter - Gayla Ochoa RN - 11/25/2019 11:44 AM EDT Maru called and is requesting acceptance of a referral to [facility] [place] for Tim. States that Timnormally sees [...] on filedocumented in this encounter Care Teams Area Secretary Relationship Specialty Start Date End Date Katia Mccallum PA PCP - General General Internal Medicine 11/10/[address] [place] [address] documented as of this encounter
--- OUTSIDE RECORDS SUMMARY | 2021-10-24 18:19 | XMS_ITS | Encounter Summary ---
:1950 [place] [address] Care Team Providers Name Role Phone Katia Mccallum Primary Care Provider Encounter Details Date Type Department Care Team Description 07/09/2021 Ancillary Procedure Radiology Library at [facility], And beti Steward [facility] [place] [address] [place] [address] [phone] (Wo rk) Social History Tobacco Use Types Packs/Day Years Used Date Never Assessed Sex Assigned at Date Recorded Not on file documented as of this encounter Plan of Treatment Not on filedocumented as of this encounter Procedures Procedure Name Priority Date/Time Associated Diagnosis Comme nts FILM LIBRARY Routine 07/09/2021 1:33 PM Results f or this STORAGE ONLY CT EDT procedure ar e in CHEST ABDOMEN the results PELVIS section. documented in this encounter Results Film Library- Storage Only CT Chest Abdomen Pelvis (07/09/2021 1:33 PM EDT) Specimen (Source) Anatomical Location Collection Method / Collectio n Time Received Time / Laterality Volume Narrative [facility] - 07/09/2021 1:33 PM EDT This exam is auto-finalizing. It's purpo se is for storage only. Nolan Beth MD [facility] FILM LIBRARY ORDERABLES Performing Organization Address City/State/ZIP Code Phon e Number [place], [place] documented in this encounter Visit Diagnoses Not on filedocumented in this encounter Care Teams Wicker Molded Candles Relationship Specialty Start Date End Date Katia Mccallum PA PCP - General General Internal Medicine 11/10/[address] [place] [phone] documented as of this encounter
--- OUTSIDE RECORDS SUMMARY | 2021-10-24 18:19 | XMS_ITS | Clinical Summary ---
:1950 Author Organization [facility] [place] [address] Care Team Providers Name Role Phone Katia Mccallum Primary Care Provider Allergies No known active allergies Encounters Date Type Specialty Care Team Description 08/14/2021 Hospital Encounter Cardiology Dylan Story MD CHB (complete heart block) from Last 3 Months Social History Tobacco [...] procedure are i n the results section. from Last 3 Months Results PCM INTERROGATION 3 MONTH (09/04/2021 7:46 AM EDT) Specimen (Source) Anatomical Location Collection Method / Collectio n Time Received Time / Laterality Volume Narrative Dylan Story MD - 09/07/2021 11:24 AM EDT [facility] DDD PPM remote reviewed. Normal device function. Dylan Story MD [facility] Cardiac Electrophysiology 09/07/2021 11:23 AM Dylan Story MD IMPLANTABLE CARDIAC DEVICE from Last 3 Months Insurance Payer Benefit Plan / Subscriber ID Effective Dates Phone Addre ss Type Group MEDICARE MEDICARE PART [id number] 2018-Prese [id number] [place] [id number] [place] [id number] 2019-Prese [phone] [address] [place] [address] Advance Directives Latest Code Status on File Code Status Date Activated Date Inactivated Comments Suspended DNR 07/10/2021 10:02 AM 07/11/2021 4:39 AM Code Status decision made by: Patient Content of discussion: full resusitation during periprocedur eal period Care Teams Sausage Tier Relationship Specialty Start Date End Date Katia Mccallum PA PCP - General General Internal Medicine 11/10/[address] [place] [id number]
--- OUTSIDE RECORDS SUMMARY | 2021-10-24 18:19 | XMS_ITS | Encounter Summary ---
:1950 Author Organization [facility] Address [address] [place] [address] Care Team Providers Name Role Phone Katia Mccallum PA-C Primary Care Provider [phone] Encounter Details Date Type Department Care Team Description 05/20/2017 Results Only [facility]- Unknown, [facility] Provider, Social History Tobacco Use [...] on filedocumented in this encounter Care Teams Granite Cutter Apprentice Relationship Specialty Start Date End Date Katia Mccallum PA-C PCP - General 05/02/[address] [place] [id number] documented as of this encounter
--- OUTSIDE RECORDS SUMMARY | 2021-10-24 18:19 | XMS_ITS | Encounter Summary ---
:1950 [place] [address] Care Team Providers Name Role Phone Katia Mccallum Primary Care Provider Encounter Details Date Type Department Care Team Description 08/14/2021 Hospital Encounter Non-Invasive Dylan Story [facility] ([facility] Andra lloyd) [address] [phone] [address] (Work) [phone] Social History Tobacco Use Types Packs/Day Years [...] complete documented in this encounter Care Teams Fabrication Operator Relationship Specialty Start Date End Date Katia Mccallum PA PCP - General General Internal Medicine 11/10/[address] [place] [address] documented as of this encounter
--- OUTSIDE RECORDS SUMMARY | 2021-10-24 18:19 | XMS_ITS | Encounter Summary ---
:1950 [place] [address] Care Team Providers Name Role Phone Katia Mccallum Primary Care Provider Encounter Details Date Type Department Care Team Description 06/26/2021 Ancillary Procedure Radiology Library Mykel Stern, Gallbladder abscess at [facility] DO [facility] [address] [place] RADIOLOGY [address] [place], [place] [phone] [address] Social History Tobacco Use Types Packs/Day Years Used Date Never Assessed Sex Assigned at Date Recorded Not on file documented as of this encounter H&P Notes Vini Garner MD - 06/26/2021 3:30 PM EDT Images from the original note were not included. INTERVENTIONAL RADIOLOGY FOCUSED H&P and PRE-PROCEDURE NOTE: PCP: GIRISH Johnson Referring Provider: [facility] General Surgery: Virginia Price DO [...] History was communicated by Dr. Price from [facility]. They are requesting a gallbladder [...] and left basilar pleural collection presenting to [facility] for ct guided abdominal and left pleural drian placement. Plan: Planned procedure: CT guided RUQ abdominal drain and left chest tube placement Labs to be performed day of procedure: Hemogram; INR; Coags (need to be faxed from [facility]) Sedation: Moderate (Conscious sedation) Prophylactic [...] Organization Address City/State/ZIP Code Phon e Number [place], [place] documented in this encounter Visit Diagnoses Diagnosis Gallbladder abscess Acute cholecystitis documented in this encounter Care Teams Magnetic Tape Typewriter Operator Relationship Specialty Start Date End Date Katia Mccallum PA PCP - General General Internal Medicine 11/10/18 [address] [place] [id number] documented as of this encounter
--- OUTSIDE RECORDS SUMMARY | 2021-10-24 18:19 | XMS_ITS | Encounter Summary ---
:1950 Author Organization [facility] [place] [address] Care Team Providers Name Role Phone Katia Mccallum Primary Care Provider Encounter Details Date Type Department Care Team Description 07/23/2021 Notes Only Radiology at [facility] Mykel Stern [facility] [place] [address] RADIOLOGY [phone] [place], [place] [address] (Wo rk) Social History Tobacco [...] were requested by Dr. Virginia Price of [facility]. Unclear follow up in our system; [...] Chest Tube/Pleural Drain 07/10/2021 Vick Boss MD [facility] RAD CT SCAN ??? CT PERITONEAL DRAINAGE 07/10/2021 CT Guided Drain Peritoneal 07/10/2021 Vick Boss MD [facility] RAD CT SCAN Medications: Allergies: Patient has [...] on filedocumented in this encounter Care Teams Casino Porter Relationship Specialty Start Date End Date Katia Mccallum PA PCP - General General Internal Medicine 11/10/18 [address] [place] [address] documented as of this encounter
--- OUTSIDE RECORDS SUMMARY | 2021-10-24 18:19 | XMS_ITS | Encounter Summary ---
:1950 Author Organization [facility] [place] [address] Care Team Providers Name Role Phone Katia Mccallum Primary Care Provider Reason for Referral Diagnostic Test (Routine) - Closed Specialty Diagnoses / Procedures Referred By Contact Refer red To Contact Radiology Diagnoses Abdominal visceral abscess Virginia Price, [facility] Rad Ct Scan Procedures CT Guided Drain Peritoneal [address] [place] [address] [address] [place] [id number] Referral ID Status Reason Start Date Expiration Date Visits V isits Requested Authorized [id number] Closed Specialty 07/09/2021 01/09/2023 1 1 Service Requested Reason for Visit Diagnostic Test (Routine) - Closed Specialty Diagnoses / Procedures Referred By Contact Refer red To Contact Radiology Diagnoses Abdominal visceral abscess Virginia Price DO [facility] Rad Ct Scan Procedures CT Guided Drain Peritoneal [address] [place] [address] [address] [place] [id number] Referral ID Status Reason Start Date Expiration Date Visits V isits Requested Authorized [id number] Closed Specialty 07/09/2021 01/09/2023 1 1 Service Requested Encounter Details Date Type Department Care Team Description 07/10/[address] [place] [facility] [place] Price, Abdominal visceral [facility] abscess (Primary Dx) Drive [address] [place] [address] [address] [id number] [place] [address] Social History Tobacco Use Types Packs/Day Years [...] is during regular office hours, please call [phone]. If it is after regular office hours, oron weekends or holidays, please call [phone] and ask to speak to the Supervisor Cell Room on callfor Interventional Radiology. XX You have [...] of : 1950 AGE: 70 y.o. [facility] [address] [place] [phone] (home) Mobile: No relevant phone numbers on file. Referring Provider: Virginia Price REASON FOR VISIT: Order Questions Answers Where will study be performed? [facility] Radiology [120] Is the patient on anticoagulant [...] Questions Answers Where will study be performed? [facility] Radiology [120] Is the patient on anticoagulant [...] Questions Answers Where will study be performed? [facility] Radiology [120] Is the patient on anticoagulant [...] culture Complications: No immediate Plan/Disposition: Return to [facility] GB fossa drain to bulb suction Left [...] of cloudy brown fluid. 2. ??Left-sided 10 [place] chest tube guicho cement, yielding 30 mL of cloudy brown. Plan: 1. ??To IR recovery then transfer back [facility]. 2. ??Awaiting return call from reji [...] who have questions please contact the health progressive care nurse that requested your imaging first. ? Electronically signed by: Vick domingo MD, [facility] ([phone]), at 07/11/2021 10:21 AM Narrative 07/11/2021 10:21 [...] IMPRESSION 1. Percutaneous placement of a 10 [place] drainage catheter into gallbladder fossa abscess/biloma, yielding 120 mL of cloudy brown fluid. 2. Left-sided [address] [place] [address] ment, yielding 30 mL of cloudy brown. Plan: 1. To IR recovery then transfer back to [facility]. 2. Awaiting return call from requesting provider [...] ho have questions please contact the health progressive care nurse that requested your imaging first. Virginia Price [...] of cloudy brown fluid. 2. ??Left-sided 10 [place] chest tube guicho cement, yielding 30 mL of cloudy brown. Plan: 1. ??To IR recovery then transfer back [facility]. 2. ??Awaiting return call from reji [...] who have questions please contact the health progressive care nurse that requested your imaging first. ? Electronically signed by: Vick domingo MD, [facility] ([phone]), at 07/11/2021 10:21 AM Narrative 07/11/2021 10:21 [...] IMPRESSION 1. Percutaneous placement of a 10 [place] drainage catheter into gallbladder fossa abscess/biloma, yielding 120 mL of cloudy brown fluid. 2. Left-sided [address] [place] [address] ment, yielding 30 mL of cloudy brown. Plan: 1. To IR recovery then transfer back to [facility]. 2. Awaiting return call from requesting provider [...] ho have questions please contact the health progressive care nurse that requested your imaging first. Virginia Price DO IMG CT ORDERABLES Anaerobic Culture (07/10/2021 11:45 AM EDT) [facility] Method Time Signature Anaerobic No anaerobic [facility] Culture organisms [facility] LABORATORY Specimen Anatomical Collection Method Collection Time Receive d Time (Source) Location / / Volume Laterality Fluid 07/10/2021 11:45 07/10/2021 AM EDT 12:24 PM EDT Comment: Left chest tube placement. Resulting Agency Comment Spec In Lab Vick Boss MD MICROBIOLOGY - GENERAL ORDER IRWIN Performing Organization Address City/State/[place] [address] Body Fluid Culture, Aerobic (07/10/2021 11:45 AM EDT) Component Value Ref Test Analysis Performed At [facility] Range Method Time Signature Body Fluid No growth TAJ Culture [facility] LABORATORY Gram Stain Cytocentrifuge Gram Stain performed [facility] No Neutrophils seen. WINK No microorganisms seen. [facility] LABORATORY Specimen Anatomical Collection Method Collection Time Receive d Time (Source) Location / / Volume Laterality Fluid 07/10/2021 11:45 07/10/2021 AM EDT 12:24 PM EDT Comment: Left chest tube placement. Resulting Agency Comment Spec In Lab Vick Boss MD MICROBIOLOGY - GENERAL ORDER IRWIN Performing Organization Address City/State/[place] [address] Anaerobic Culture (07/10/2021 11:20 AM EDT) [facility] Method Time Signature Anaerobic No anaerobic TAJ WINK Culture organisms [facility] LABORATORY Specimen (Source) Anatomical Collection Method Collection [...] Organization Address City/State/[place] [address] (ABNORMAL) Body Fluid Culture, Aerobic (07/10/2021 11:20 AM EDT) Component Value Ref Test Analysis Performed At [facility] Range Method Time Signature Body Fluid Few Escherichia TAJ Culture coli (A) [facility] Gram Stain Cytocentrifuge Gram Stain performed TAJ Olson tatum WINK Few Gram Negative Rods [facility] Organism Escherichia coli TAJ (A) [facility] Specimen (Source) Anatomical Collection Method [...] Organization Address City/State/[place] [address] documented in this encounter [...] mg documented in this encounter Care Teams Propellant Assembler Relationship Specialty Start Date End Date Katia Mccallum PA PCP - General General Internal Medicine 11/10/[address] [place] [phone] documented as of this encounter
--- OUTSIDE RECORDS SUMMARY | 2021-10-24 18:19 | XMS_ITS | Encounter Summary ---
:1950 Author Organization [facility] Address [address] [place] [address] Care Team Providers Name Role Phone None, Provider Primary Care Provider Unavailable Katia Mccallum PA-C Primary Care Provider [phone] Reason for Referral (Routine) - Receiving Office to Obtain Authorization Specialty Diagnoses / Procedures Referred By Contact Dian chou To Contact Kaity Yañez APRN [address] [phone] Referral ID Status Reason Start Expiration Visits Visits Date Date Requested Authorized [id number] Receiving Office Specialty 05/02/2017 1 1 to [...] chou To Contact Kaity Yañez APRN [address] [phone] Referral ID Status Reason Start Expiration Visits Visits Date Date Requested Authorized [id number] Receiving Office Specialty 05/02/2017 1 1 to Obtain Services Authorization Required Comments You must contact us if we have not conta cted you or you have missed your scheduled appointment. If you have any nursing questions, joy gauthier don't hesitate to call the Cardiac Arrhythmia Service at [facility] at or , extension [phone]. For any scheduling of appointments, pleidania kitchen call [phone] or , extension [phone]. . (Routine) - Receiving Office to Obtain Authorization Specialty Diagnoses / Procedures Referred By Babatunde chou To Contact Kaity Yañez APRN [address] [phone] Referral ID Status Reason Start Expiration Visits Visits Date Date Requested Authorized [id number] Receiving Office Specialty 05/02/2017 1 1 to Obtain Services Authorization Required Comments Appointment on May 13, 2017 at 9 am for an incision site check with the nurse in the device clinic at [facility]. Phone [phone]. [facility] is located at [address] [place] [address] (Routine) - Receiving Office to Obtain Authorization Specialty Diagnoses / Procedures Referred By Contact Dian chou To Contact Kaity Yañez APRN [address] [phone] Referral ID Status Reason Start Expiration Visits Visits Date Date Requested Authorized [id number] Receiving Office Specialty 05/02/2017 1 1 to [...] scheduled at your first appointment. - [facility] Cardiology is located at [address] [facility] in [place] -Clinics are also held in [facility], [place], [place] and [facility]. I f you live in those areas, we will make arrangements for follow-up appointments in one of those clinics.. Reason for Visit Reason Comments Bradycardia Pt transferred from [place] with new complete heart block. VSS on arrival. CC DOBBS. Encounter Details Date Type Department Care Team Description 04/30/2017 - [facility] Yvon Fields MD [address] [place] [phone] Heart block AV third degree (CMS-HCC) (H CC-CMS) (Primary Dx); 05/04/2017 Encounter Cardiac/Telemetry Kenneth Hendrickson MD [address] [place] [phone] Acute on chronic diastolic congestive he art failure (CMS-HCC) (HCC-CMS) Unit Houston Corey MD 111 [facility] [address] [place] [address] [place] [id number] Social History Tobacco Use Types Packs/Day [...] Principal/Final Diagnosis: Heart block AV third degree ([facility]) Additional Problems Managed in the [...] male with no known PMH transferred from [facility] on 04/30/17 for complete heart block. 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 He complianed of 2-3 months of SOB which worsened 2-3 weeks prior to admission and reached critical point 2-3 days prior to admission when he had symptoms at rest with 3 pillow orthopnea and mild increased LE swelling prompting presentation to [facility]. On arrival to ED he was afebrile, HR 58, BP 190/103 with negative labs. ECHO showed EF 65% with moderate concentric LVH, mild LA dilation and mild AST/TR. His HRdropped to the 30s prompting transfer to [facility]. On arrival here patient was asymptomatic with [...] Post Hospital Visit with Caitie Atwood NP [facility] Cardiology - [facility] (--) [address] [place] [address] Follow-up appointments and procedures Pacemaker check Your [...] scheduled at your first appointment. - [facility] Cardiology is located at [address] in [place] -Clinics are also held in [facility], and [facility]. If you live in those areas, we [...] the nurse in the device clinic at [facility]. Phone [phone]. [facility] is located at [address] [place] [address] Authorizing Provider: Coleen Yañez NP ~Please note: You must contact us if we have not contacted you or you have missed your scheduled appointment. If you have any nursing questions, please don't hesitate to call the Cardiac Arrhythmia Service at [facility] at or , extension [phone]. For any scheduling of appointments, please call [phone] or , extension [phone]. . Authorizing Provider: Coleen Yañez NP Additional Information: Appointment on May 13, 2017 at 9 am for an incision site check with the nurse in the device clinic at the [facility]. . [facility] is located at [address] [place] [address] . You have an appointment with Katia Mccallum PA-C at [facility] on 05/29/2017 at 1:00 pm. If you have questions or need to reschedule your appointment, please call [phone]. Please arrive 15 minutes early to complete any necessary. Bring a copy of this AVS Summary with you. Cardiology follow up on June 16, 2017 at 2:[address] Torres at the [facility]. [facility] is located at [address] [place] [address]. Pacemaker device check on August 05, 2017 at 10 am at the [facility]. [facility] is[facility] at [address] [place] [address]. Discharge Handoff Communication I called Katia Mccallum's [...] nurse in the device clinic at the [facility]. . [facility] is located at [address] [place] [address] . You have an appointment with Katia Mccallum PA-C at [facility] on 05/29/2017 at 1:00 pm. If you have questions or need to reschedule your appointment, please call [phone]. Please arrive 15 minutes early to complete any necessary. Bring a copy of this AVS Summary with you. Cardiology follow up on June 16, 2017 at 2:[address] Torres at the [facility]. [facility] is located at [address] [place] [address]. Pacemaker device check on August 05, 2017 at 10 am at the [facility]. [facility] is[facility] at [address] [place] [address]. Discharge Instr - Melida Engel RN - [...] through Care Everywhere. HEART FAILURE: AVOIDING TRIGGERS (MALAWIAN)documented in this encounter Medications at Time of [...] - 05/04/2017 1500 EST I spoke with science consultant CM regarding patient's lack of electricity at [...] office on Friday to be connected to social services coordinator. Amelia Partida, Internal Medicine Resident PGY-3 [phone] [...] at Dc. GAEL TEIXEIRA RN Case Manager #[id number] elia Ramey MD - 05/04/2017 1204 EST [...] known PMH admitted in transfer 04/30/17 from [facility] for asymptomatic complete heart block and HTN [...] [phone] 05/04/17 12:11 Associated attestation - Jennyfer Kesy MD - 05/05/2017 1635 EST Attestation: I [...] complaints this morning. Hereports he uses the [facility] in [place]. Review of Systems Pertinent items are noted [...] known PMH admitted in transfer 04/30/17 from [facility] for asymptomatic complete heart block and HTN [...] been connected with Katia Mccallum PA-C for [facility] primary care on 05/29 at 1pm Radha Lowery MD Internal Medicine PGY-2 Pager #[phone] 05/03/2017 13:15 Associated attestation - Houston Corey MD - 05/05/2017 1043 EST Attestation statement: I saw and examined the patient with the resident/fellow. I agree with the findings and plan of care documented in the resident's/fellow's note. Patient seen on 05/02/17 Desi Villatoro, TISH - 05/02/2017 1000 EST 05/02: Patient has an appointment with Katia Mccallum PA-C at [facility] on 05/29/2017 at 1:00 to establish care. [...] known PMH admitted in transfer 04/30/17 from [facility] for asymptomatic complete heart block and HTN [...] PATIENT CONTACT INFO VERIFIED: Yes (Eva Rudolph [phone]) PATIENT ADDRESS VERIFIED: Yes LIVING ARRANGEMENTS AND ACCESSIBILITY ISSUES: Living Arrangements: Alone Levels: 1 Stairs to enter: 2 Handicap access: None Bathroom located on bedroom level?: Yes What in home social supports are available to the patient? Friends / neighbors. Patient lives alone in a mobile home in [place]. He has no immediate family and depends [...] For Finances: No TRANSPORTATION: Transportation: Family CULTURAL, ZOROASTRIAN and/or LANGUAGE factors affecting health care/discharge planning: [...] PCP Verified: Yes (Patient has gone to [facility] in the past to see Dr. Garcia who has since retired.) Specialists: None Type of Home Health Services: None DME Provider: None Pharmacy: [facility] - [address] - [place], [place] - [address] [facility] [phone] Home Health: None Other: POST HOSPITAL TRANSITION PLAN: Case management will continue to follow through transition to discharge. Anticipate discharge to home when medically stable. No needs are identified at this time. Patientsaid he has a friend who can provide transportation home. Ivelisse Rueda director life #[phone] Reba Darnell, [facility] - 05/01/2017 1111 EST Transitions of Care - Pharmacy Admission Medication Reconciliation David Farfan is a 66 y.o. male admitted on 04/30/2017 for Heart block AV third degree ([facility]) Pharmacist Interventions/Recommendations: 1. Per patient report, the only medication he was taking prior to admission was ibuprofen 400mg daily for knee pain. Counseled patient to stop taking ibuprofen/NSAIDs as they are harmful to the heart and raise blood pressure-->recommended using acetaminophen for pain instead. 2. Confirmed patient would like to use [facility] in [place], [place] at discharge> please send all discharge prescriptions here. 3. Paged team with findings. Medication History Obtained from: Patient (Self) Medication reconciliation was performed. Discrepancies are noted in BOLD. Clarifications are noted in RED. Medications No prescriptions prior to admission. Additional Prior to Admission Nrbg-zqt-Jgkmrth Products as noted by Patient/Family: Ibuprofen 400mg daily for knee pain Preferred Pharmacy: [facility] - [place], [place] Barriers to Learning: None apparent Barriers to Obtaining Medications: None apparent Barriers to Taking Medications: None apparent Please feel free to contact me or the Transitions of Care Pharmacy Team with questions or concerns. Thank you Reba Marie, PharmD, [facility] [phone] Pager: [phone] Houston Corey MD - 05/01/2017 0729 EST [...] known PMH admitted in transfer 04/30/17 from [facility] for asymptomatic complete heart block and HTN [...] H&P Admit Date: 04/30/2017 PCP: Provider None Forming Department End Finder: none CC: complete heart block HPI: David Farfan is a 66 y.o. male with no known PMH who presents in transfer from [place] for complete heart block. Briefly, patient last saw a doctor approximately 12 years ago after he was admitted for CA rule out in [place]. He reports having a stress at that time though does not recall being told it was abnormaland was not discharged on any medications. He saw a fixer boarding room once in follow-up and has not had [...] to present to the ED. On arrival [facility], patient was afebrile HR 58, RR 18, [...] ASA 324 mg prior to transfer to [facility]. On arrival here, he was alert and [...] remote stress test 12 years ago in [place] Review of Systems A 10 point review of systems was discussed and is negative aside from what is noted in HPI. PMH: none PSH: benign tumor removal R forearm, L knee arthroscopy Family History: no history of early CAD/ CA or heart block Social History: Lifetime non-smoker, currently chews tobacco (1 can lasts 2-3 days). 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 Never had DTs or withdrawal seizures. 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 He is currently asymptomatic [...] Procedure Notes Tony Rosenberg MD - 05/02/2017 0911 EST BSI MR compatible DDD PPM inserted via the left axillary vein. Complications: none Full note to follow Surgeon: Winget documented in this encounter ED Notes Kenneth Hendrickson MD - 04/30/2017 1719 EST DOS: 04/30/2017 Chief Complaint Patient presents with ??? Bradycardia Pt transferred from [place] with new complete heart block. VSS on arrival. CC DOBBS. HPI HPI Comments: I, Maite Schmitt, am scribing for Kenneth Hendrickson MD while he/she is personally performing the service. Maite Schmitt 04/30/2017 17:19 David Farfan is a 66 y.o. male with a history of heart block AV third degree who presents to the EDwith bradycardia. The patient was transferred from [place] with complaints of dyspnea on exertion and [...] ER after EKG, whom referred him to [email or web address] for pacemaker placement. Denies CP, vomiting, headaches, [...] with bradycardia. The patient was transferred from [place] with complaints of dyspnea on exertion and [...] ER after EKG, whom referred him to [facility] [[email or web address]] for pacemaker placement. Denies CP, vomiting, headaches, [...] W/ CARDS ACCEPTING. NOTE TAKEN DR HENDRICKSON ([facility]). documented in this encounter Miscellaneous Notes [...] AVS received. Pt left with son and fetityyu-lj-uoq via wheelchair. BP 115/79 (BP Cuff Location: [...] lan of Don Lovelace RN - 05/02/2017 8765 EST Problem: Daily Care Plan Goals Goal: [...] VSS, monitor tele D: Patient arrived to [place] [address] at 1900. Vital signs noted, BP 180s/80s. [...] EST) Glucose, 104 (H) 70 - 100 [facility] Fingerstick mg/dl LABORATORY SERVICES Compliance Analyst ID [id number]: [facility] Test Performed by LABORATORY Nursing Services SERVICES Specimen Blood Performing Organization Address [facility] LABORATORY [address] [place] [address] SERVICES CREATININE (05/03/2017 5:42 EST) Creatinine 0.67 0.66 - 1.25 [facility] mg/dl LABORATORY SERVICES GFR, Calculated 100 >60 [facility] Comment: ml/min/1.73m2 LABORATORY eGFR calculated using CKD-EPI equation for SERVICES non Americans. Multiply eGFR by 1.16 for Americans. Specimen Blood specimen (specimen) - Blood Performing Organization Address [facility] LABORATORY [address] [place] [address] SERVICES (ABNORMAL) BUN (05/03/2017 5:42 EST) Pathologist Sig nature BUN 8 (L) 10 - 26 mg/dl [facility] LABORATO RY SERVICES Specimen Blood specimen (specimen) - Blood Performing Organization Address [facility] LABORATORY [address] [place] [address] SERVICES (ABNORMAL) ELECTROLYTES (05/03/2017 5:42 EST) Pathologist Sig nature Sodium 134 (L) 136 - 145 mEq/L [facility] LABORA TORY SERVICES Potassium 4.2 3.5 - 5.0 mEq/L [facility] LABORA TORY SERVICES Chloride 99 96 - 110 mEq/L [facility] LABORAT ORY SERVICES CO2 26 22 - 32 mEq/L [facility] LABORATO RY SERVICES Specimen Blood specimen (specimen) - Blood Performing Organization Address [facility] LABORATORY [address] [place] [address] SERVICES (ABNORMAL) HEMAGRAM (05/03/2017 5:42 EST) Pathologist Sig nature WBC 7.95 4.0 - 10.4 K/cmm [facility] LABORATORY SERVICES RBC 3.97 (L) 4.36 - 5.78 M/cmm [facility] LABORATORY SERVICES Hemoglobin 13.3 (L) 13.8 - 17.3 gm/dl [facility] LABORATORY SERVICES HCT 38.4 (L) 39.5 - 50.2 % [facility] LABORATORY SERVICES MCV 97 (H) 81 - 95 fl [facility] LABORATORY SERVICES MCH 33.5 (H) 27.6 - 33.0 pg [facility] LABORATORY SERVICES MCHC 34.6 32.8 - 36.4 gm/dl [facility] LABORATORY SERVICES RDW-CV 11.9 <14.2 % [facility] LABORATORY SERVICES RDW-SD 42.4 <46.0 fl [facility] LABORATORY SERVICES PLT 196 141 - 377 K/cmm [facility] LABORATORY SERVICES MPV 12.6 9.5 - 12.7 fl [facility] LABORATORY SERVICES Specimen Blood specimen (specimen) - Blood Performing Organization Address City/State/ZIP Code Phon e Number [facility] LABORATORY [address] [place] [address] SERVICES EKG 12-LEAD (05/03/2017 4:23 EST) Specimen Narrative [facility] EKG - 05/09/2017 13:4 7 EST ? [facility] ? Test Date: ?2017-05-03 Pat Name: ? DAVID FARFAN ?Department: ?? [facility] 5 ? Room: ? MW514 Gender: ? M ?[employer] Supervisor: ?? [id number] : ?1950 ? Requested By: MARIO ALBERTO SCANLON Order Number: [id number] ? Reading : ?? SENG PERSON SA, MD ? Measurements Intervals ?[place] ? Rate: ? 75 ? P: ?51 FL: ? 172 ?QRS: ?-77 QRSD: ? 172 [...] Seng Brody Sa, MD - 05/09/[address] [facility] Test Date: 2017-05-03 Pat Name: DAVID FARFAN Department: BUD Chao Room: [facility] Gender: M [employer] Supervisor: [id number] : 1950 Requested By: MARIO ALBERTO SCANLON Order Number: [id number] Reading MD: Nithya PERSON SA, MD Measurements Intervals [place] Rate: 75 P: 51 FL: 172 QRS: -77 QRSD: 172 T: 92 QT: 469 QTc: 525 Interpretive Statements ELECTRONIC VENTRICULAR PACEMAKER ABNORMAL RHYTHM ECG Automated Interpretation. Provider Inter pretation to follow. Compared to ECG 05/02/2017 10:10:30 No significant changes I reviewed the tracing and have either a greed or edited the findings in this report. Electronically Signed On 13:47:58 EST by SENG PERSON SA, MD. Performing Organization Address City/[facility]/ZIP Code Phon e Number [facility] EKG PORTABLE CHEST 1 VIEW (05/02/2017 10:27 EST) Anatomical Region Laterality Modality Other Specimen Narrative [facility] RADIOLOGY MAIN [place] - 05/02/2017 10:51 EST PORTABLE CHEST 1 [...] City/State/ZIP Code Phon e Number [facility] RADIOLOGY MAIN CAMPUS EKG 12-LEAD (05/02/2017 10:10 EST) Specimen Narrative [facility] EKG - 05/08/2017 8:22 EST ? [facility] ? Test Date: ?2017-05-02 Pat Name: ? DAVID FARFAN ?Department: ?? JAME 5 ? Room: ? MW514 Gender: ? M ?[employer] Supervisor: ?? [id number] : ?1950 ? Requested By: JORGE Martinez Order Number: [id number] ? Reading MD: ?? LALY BARBER MD ? Measurements Intervals ?[place] ? Rate: ? 63 ? P: ?40 FL: ? 170 ?QRS: ?-72 QRSD: ? 180 ?T: ?86 QT: ? 492 ? QTc: ?504 ? Interpretive Statements DUAL CHAMBER PACER ELECTRONIC VENTRICULAR PACEMAKER I reviewed the tracing and have either a greed or edited the findings in this report. Electronically Signed On 08:22:30 EST by LALY BARBER MD. Procedure Note Laly Barber MD - 05/08/2017 [facility] r Test Date: 2017-05-02 Pat Name: DAVID FARFAN [facility] Room: [facility] Gender: M [employer] Supervisor: [id number] : 1950 Requested By: JORGE Martinez Order Number: [id number] Reading MD: Elsa BARBER MD Measurements Intervals [place] Rate: 63 P: 40 FL: 170 QRS: -72 QRSD: 180 T: 86 QT: 492 QTc: 504 Interpretive Statements DUAL CHAMBER PACER ELECTRONIC VENTRICULAR PACEMAKER I reviewed the tracing and have either a greed or edited the findings in this report. Electronically Signed On 08:22:30 EST by LALY BARBER MD. Performing Organization Address City/State/ZIP Code Phon e Number [facility] EKG PERMANENT PACEMAKER PROCEDURE (05/02/2017 10:00 EST) Specimen Narrative [facility] CARDIOLOGY MAIN CAM[place] S - 05/02/2017 11:24 EST *Cardiology* [address] [place] [id number] Device Implantation Patient: David Farfan ? Study Date: ?05/02/2017 ? Accession #: ? [id number] : ? 1950 Referring: Attending: Tony Rosenberg [...] cass. The patient name, date of , [facility] l site, and procedure were verified [...] HARDWARE: Implanted device: Clifford Appiah Serial number: [id number]. LEAD PARAMETERS + + ----+ + Lead # ? 1 ? 2 ? + + ----+ + Chamber ? RA ? RV ? + + ----+ + Date implanted ?? 05/02/2017 ? 05/02/2017 ? + + ----+ + Model information [employer] ? [employer] ? ingevity mr ? MRI ? + + ----+ + Serial number ? [id number] ? [id number] ? + + ----+ + Location ? [...] results, any complications, and treatment plan to [facility] members and patient support persons who were present at the conclusi on of the procedure. POST PROCEDURAL DISPOSITION: Patient was admitted as an inpatient mello or to this procedure. Electronically signed by Tony Rosenberg MD 05/02/2017 11:23 Procedure Note Tony Rosenberg MD - 05/02/2017 *Cardiology* [address] [place] [address] Device Implantation Patient: David Farfan Study Date: [...] MELODIE Bijal Tiwari DR - Serial number: [id number]. LEAD PARAMETERS + + ----+ + Lead # 1 2 + + ----+ + Chamber RA RV + + ----+ + Date implanted 05/02/2017 05/02/2017 + + ----+ + Model information Cristobal hood mr MRI + + ----+ + Serial number [id number] + + ----+ + Location RA appendage [...] results, any complications, and treatment plan to [facility] members and patient support persons who were present at the conclusi on of the procedure. POST PROCEDURAL DISPOSITION: Patient was admitted as an inpatient mello or to this procedure. Electronically signed by Tony Rosenberg MD 05/02/2017 11:23 Performing Organization Address [facility]/ZIP Code Phon e Number [facility] CARDIOLOGY MAIN CAMPUS CREATININE (05/02/2017 6:11 EST) Creatinine 0.68 0.66 - 1.25 [facility] mg/dl LABORATORY SERVICES GFR, Calculated 100 >60 [facility] Comment: ml/min/1.73m2 LABORATORY eGFR calculated using CKD-EPI equation for SERVICES non Americans. Multiply eGFR by 1.16 for Americans. Specimen Blood specimen (specimen) - Blood Performing Organization Address City/[facility]/ZIP Code Phon e Number [facility] LABORATORY [address] [place] [address] SERVICES BUN (05/02/2017 6:11 EST) Pathologist Sig nature BUN 10 10 - 26 mg/dl [facility] LABORATO RY SERVICES Specimen Blood specimen (specimen) - Blood Performing Organization Address [facility]/ZIP Code Phon e Number [facility] LABORATORY [address] [place] [address] SERVICES (ABNORMAL) ELECTROLYTES (05/02/2017 6:11 EST) Pathologist Sig nature Sodium 135 (L) 136 - 145 mEq/L [facility] LABORA TORY SERVICES Potassium 4.4 3.5 - 5.0 mEq/L [facility] LABORA TORY SERVICES Chloride 102 96 - 110 mEq/L [facility] [facility] CO2 23 22 - 32 mEq/L [facility] Specimen Blood specimen (specimen) - Blood Performing Organization Address [facility]/ZIP Code Phon e Number [facility] [address] [place] [address] SERVICES (ABNORMAL) HEMAGRAM (05/02/2017 6:11 EST) Pathologist Sig nature WBC 6.92 4.0 - 10.4 K/cmm [facility] RBC 3.67 (L) 4.36 - 5.78 M/cmm [facility] SERVICES Hemoglobin 12.3 (L) 13.8 - 17.3 gm/dl [facility] HCT 35.2 (L) 39.5 - 50.2 % [facility] MCV 96 (H) 81 - 95 fl [facility] MCH 33.5 (H) 27.6 - 33.0 pg [facility] MCHC 34.9 32.8 - 36.4 gm/dl [facility] SERVICES RDW-CV 11.9 <14.2 % [facility] RDW-SD 41.1 <46.0 fl [facility] PLT 185 141 - 377 K/cmm [facility] MPV 12.9 (H) 9.5 - 12.7 fl [facility] SERVICES Specimen Blood specimen (specimen) - Blood Performing Organization Address City/[facility]/ZIP Code Phon e Number [facility] [address] [place] [address] SERVICES (ABNORMAL) TROPONIN I (05/01/2017 7:52 EST) Pathologist Sig nature Troponin I (ng/mL) 0.035 (H) <0.034 ng/ml [facility] SERVICES Specimen Blood specimen (specimen) - Blood Performing Organization Address City/[facility]/ZIP Code Phon e Number [facility] [address] [place] [address] SERVICES MAGNESIUM (05/01/2017 6:01 EST) Pathologist Sig nature Magnesium 2.1 1.7 - 2.8 mg/dl [facility] SERVICES Specimen Blood specimen (specimen) - Blood Performing Organization Address City/[facility]/ZIP Code [facility] e Number [facility] [address] [place] [address] SERVICES CREATININE (05/01/2017 6:01 EST) Creatinine 0.67 0.66 - 1.25 [facility] mg/dl LABORATORY SERVICES GFR, Calculated 100 >60 [facility] Comment: ml/min/1.73m2 LABORATORY eGFR calculated using CKD-EPI equation for SERVICES non Americans. Multiply eGFR by 1.16 for Americans. Specimen Blood specimen (specimen) - Blood Performing Organization Address [facility]/ZIP Code [facility] e Number [facility] [address] [place] [address] SERVICES (ABNORMAL) BUN (05/01/2017 6:01 EST) Pathologist Sig nature BUN 6 (L) 10 - 26 mg/dl [facility] Specimen Blood specimen (specimen) - Blood Performing Organization Address City/[facility]/ZIP Code [facility] e [facility] [address] [place] [address] SERVICES (ABNORMAL) ELECTROLYTES (05/01/2017 6:01 EST) Pathologist Sig nature Sodium 134 (L) 136 - 145 mEq/L [facility] Potassium 4.5 3.5 - 5.0 mEq/L [facility] Chloride 101 96 - 110 mEq/L [facility] CO2 23 22 - 32 mEq/L [facility] Specimen Blood specimen (specimen) - Blood Performing Organization Address City/[facility]/ZIP Code Phon e Number [facility] [address] [place] [address] SERVICES (ABNORMAL) HEMAGRAM (05/01/2017 6:01 EST) Pathologist Sig nature WBC 7.09 4.0 - 10.4 K/cmm [facility] SERVICES RBC 3.76 (L) 4.36 - 5.78 M/cmm [facility] SERVICES Hemoglobin 12.7 (L) 13.8 - 17.3 gm/dl [facility] SERVICES HCT 36.4 (L) 39.5 - 50.2 % [facility] SERVICES MCV 97 (H) 81 - 95 fl [facility] SERVICES MCH 33.8 (H) 27.6 - 33.0 pg [facility] SERVICES MCHC 34.9 32.8 - 36.4 gm/dl [facility] SERVICES RDW-CV 11.9 <14.2 % [facility] SERVICES RDW-SD 42.1 <46.0 fl [facility] SERVICES PLT 205 141 - 377 K/cmm [facility] SERVICES MPV 12.8 (H) 9.5 - 12.7 fl [facility] SERVICES Specimen Blood specimen (specimen) - Blood Performing Organization Address [facility] Phon e Number [facility] [address] [place] [address] SERVICES LIPID PROFILE (INCLUDES CHOLESTEROL, TRIGLYCERIDES, HDL, LDL) (05/01/2017 6:01 EST) Cholesterol 148 mg/dl [facility] Comment: LABORATORY Desirable:<200 SERVICES Borderline High:200-239 High:>io=321 Triglycerides 65 mg/dl [facility] Comment: LABORATORY Normal:<150 SERVICES Borderline High:150-199 High:200-499 Very High:>hu=660 HDL 39 mg/dl [facility] Comment: LABORATORY Low:<40 SERVICES Normal:40-60 Desirable: >60 LDL, Calculated 96 mg/dl [facility] Comment: LABORATORY Optimal:<100 SERVICES Near Optimal:100-129 Borderline High:130-159 High:160-189 Very High:>gz=999 Chol/HDL Ratio 3.8 [facility] SERVICES Fasting? Unknown [facility] SERVICES Non HDL Cholesterol 109 mg/dl [facility] Comment: LABORATORY Desirable:<130 SERVICES Borderline:130-159 High: 160-189 Very High: >ju=261 Specimen Blood specimen (specimen) - Blood Performing Organization Address [facility] Phon e Number [facility] [address] [place] [address] SERVICES (ABNORMAL) TROPONIN I (05/01/2017 0:20 EST) Pathologist Sig nature Troponin I (ng/mL) 0.055 (H) <0.034 ng/ml [facility] SERVICES Specimen Blood specimen (specimen) - Blood Performing Organization Address [facility]/ZIP Code Phon e Number [facility] [address] [place] [address] SERVICES HEMOGLOBIN A1C (05/01/2017 0:20 EST) Hemoglobin A1C 5.7 % [facility] Comment: LABORATORY SERVICES Reference Range: <5.7% Normal 5.7-6.4% Prediabetes =>6.5% Diagnostic for diabetes (if confirmed) Goals for glycemic control in diabetes ADA 2017 For non adults with diabetes: ?? Target <7.5% For children and adolescents with type 1 diabetes: ?? Target <7.0% More or less stringent targets may be appropriate for individual patients. Est Avg Glucose 117 mg/dl [facility] Comment: LABORATORY SERVICES eAG represents the A1c result expressed as average glucose in mg/dl. Specimen Blood specimen (specimen) - Blood Performing Organization Address [facility]/ZIP [facility] Phon e Number [facility] [address] [place] [address] SERVICES (ABNORMAL) PROTIME (04/30/2017 19:33 EST) Pro Time 15.1 (H)Comment: NOTE 10.3 - 13.4 [facility] NEW REFERENCE RANGE secs LABORATORY SERVICE S OF APR 03 2017 I.N.R. 1.3 (H) 0.9 - 1.1 [facility] Comment: Ratio LABORATORY SERVICES Moderate Intensity Coumadin INR = 2.0-3.0 Adjustments in anticoagulant therapy dose should be based upon the INR and NOT the Pro Time. Specimen Blood specimen (specimen) - Blood Performing Organization Address City/[facility]/ZIP Code Phon e Number [facility] [address] [place] [address] SERVICES ED/URGENT CARE ADD-ON (04/30/2017 18:20 EST) Pathologist Sig nature Tests to be added LYME [facility] AB,Comment: [facility] LABORATORY SERVICES Number for problems [id number] (ED) [facility] SERVICES Specimen Other Performing Organization Address City/[facility]/ZIP Code Phon e Number [facility] [address] [place] [address] SERVICES OUTSIDE IMAGES ??? ECHO IMAGES (04/30/2017 17:24 EST) Anatomical Region Laterality Modality Other Specimen Narrative OP CARDIOLOGY - 04/30/2017 17:24 EST This is an outside study - there is no r eport. Procedure Note CEMENT BASED MATERIALS PUMP TENDER, IMAGING - 04/30/2017 This is an outside study - there is no r eport. Performing Organization Address City/State/ZIP Code Phon e Number OP CARDIOLOGY EKG 12-LEAD (04/30/2017 16:43 EST) Specimen Narrative [facility] EKG - 05/02/2017 11:1 2 EST ?[facility] Emergency ? Test Date: ?2017-04-30 Pat Name: ? DAVID FARFAN ?Department: ?? ED ? Room: ? AC12 Gender: ? M ?[employer] Supervisor: ?? [id number] : ?1950 ? Requested By: DONNA Cabral Order Number: [id number] ? Martha OAKES: ?? ANA MARSH MD ? Measurements Intervals ?[place] ? Rate: ? 33 ? P: ? FL: ? 0 ?QRS: ?15 QRSD: ? 110 [...] Note Ana Marsh MD - 05/02/2017 [facility] Emergency Test Date: 2017-04-30 Pat Name: DAVID FARFAN Department: ED Room: [facility] Gender: M [employer] Supervisor: [id number] : 1950 Requested By: DONNA Cabral Order Number: [id number] Reading MDKarel MARSH MD Measurements Intervals [place] Rate: 33 P: FL: 0 QRS: 15 QRSD: 110 T: 42 [...] by ANA MARSH MD. Performing Organization Address City/[facility]/ZIP Code Phon e Number [facility] EKG TSH (04/30/2017 16:40 EST) Pathologist Sig nature TSH 1.34 0.47 - 4.68 uIU/ml [facility] LABORATORY SERVICES Specimen Blood Performing Organization Address City/[facility]/ZIP Code Phon e Number [facility] [address] [place] [address] SERVICES LYME AB (04/30/2017 16:40 EST) Pathologist Sig nature [place] AB NegativeComment: [facility] Reference Range: LABORATORY SERVICES Negative Specimen Blood Performing Organization Address [facility] Phon e Number [facility] [address] [place] [address] SERVICES (ABNORMAL) PROFILE ED CARDIAC PACK (04/30/2017 16:40 EST) Sodium 134 (L) 136 - 145 [facility] mEq/L [facility] Potassium 4.2 3.5 - 5.0 [facility] mEq/L [facility] Chloride 105 96 - 110 [facility] mEq/L [facility] CO2 20 (L) 22 - [...] SERVICES Hemoglobin 12.6 (L) 13.8 - 17.3 [facility] gm/dl [facility] SERVICES HCT 35.7 (L) 39.5 - 50.2 [facility] % [facility] SERVICES MCV 96 (H) 81 - 95 fl [facility] LABORATORY SERVICES MCH 33.9 (H) 27.6 - 33.0 [facility] pg [facility] MCHC 35.3 32.8 - 36.4 [facility] gm/dl [facility] RDW-CV 11.9 <14.2 % [facility] SERVICES RDW-SD 41.5 <46.0 fl [facility] LABORATORY SERVICES PLT 197 141 - 377 [facility] MPV 12.5 9.5 - 12.7 [facility] LAB[facility]ATORY SERVICES Neutrophils 62.1 % [facility] SERVICES Lymphocytes 23.9 % [facility] SERVICES Monocytes 11.6 % [facility] SERVICES Eosinophils 1.2 % [facility] SERVICES Basophils 0.9 % [facility]ORY SERVICES Immature Grans 0.3 % [facility] LABORATORY SERVICES ABS Neutrophils 4.84 2.20 - 8.85 [facility] ABS Lymphs 1.86 1.09 - 3.30 [facility] LABORATORY SERVICES ABS Monocytes 0.90 (H) 0.1 - 0.8 [facility] LABORATORY SERVICES ABS Eosinophils 0.09 0.03 - 0.61 [facility] LABORATORY SERVICES ABS Basophils 0.07 0.01 - 0.11 [facility] LABORATORY SERVICES ABS Immature Grans 0.02 0 - 0.06 [facility] LABORATORY SERVICES Type of Diff: Automated [facility] SERVICES Troponin I (ng/mL) 0.040 (H) <0.034 ng/ml [facility] SERVICES Glucose, Screening 100 70 - 100 [facility] mg/dl [facility] SERVICES Hold Blue Top Sample for [facility] coagulation will be [facility]ENTER LAB[facility]ATORY discarded after 4 SERVICES hours Specimen Blood specimen (specimen) - Blood Performing Organization Address City/State/ZIP Code Phon e Number [facility] [address] [place] [address] SERVICES documented in this encounter Visit Diagnoses [...] 05/01/2017 documented in this encounter Care Teams Junior Designer Relationship Specialty Start Date End Date None, Provider PCP - General 04/30/17 05/01/17 Katia Mccallum PA-C PCP - General 05/02/[address] [place] [id number] documented as of this encounter
--- OUTSIDE RECORDS SUMMARY | 2021-10-24 18:19 | XMS_ITS | Encounter Summary ---
:1950 Author Organization [facility] Address [address] [place] [address] Care Team Providers Name Role Phone Katia Mccallum PA-C Primary Care Provider Encounter Details Date Type Department Care Team Description 05/20/2017 Results Only Imaging [facility]- Unknown, PRISM Provider, Social History Tobacco [...] on filedocumented in this encounter Care Teams Obstetrical Anesthesiologist Relationship Specialty Start Date End Date Katia Mccallum PA-C PCP - General 05/02/[address] [place] [id number] documented as of this encounter
[2021-10-24 18:31] LABS: Abs Immature Grans 0.03 10^3/uL (0.0-0.06); Absolute Basophil Count 0.07 10^3/uL (0.0-0.2); Absolute Eosinophil Count 0.21 10^3/uL (0.0-0.7); Absolute Lymphocyte Count 2.34 10^3/uL (1.2-3.4); Absolute Neutrophil Count 4.91 10^3/uL (1.2-6.7); Basophils % 0.8; Eosinophils % 2.5; HCT 32.1 % (40.0-50.0); HGB 10.8 g/dL (13.5-17.5); Immature Grans % 0.4; MCH 33.5 pg (27.0-33.0); MCHC 33.6 % (32.0-36.0); MCV 100 fL (80-95); MPV 10.9 fL (8.0-11.0); Monocytes % 9.6; Neutrophils % 58.7; Platelet Count 225 10^3/uL (130-400); RBC 3.22 10^6/uL (4.36-5.78); RDW 12.5 % (11.8-14.1); RDW-SD 45.7 fL; WBC 8.36 10^3/uL (4.4-10.8)
[2021-10-24 18:56] LABS: Anion Gap 7.8 mmol/L (3-11); BUN 12 mg/dL (7-18); CO2 26.2 mmol/L (21.0-32.0); CREATININE 0.6 mg/dL (0.70-1.30); Calcium 8.4 mg/dL (8.5-10.1); Chloride 98 mmol/L (98-107); Glucose 97 mg/dL (74-106); Potassium 4.6 mmol/L (3.5-5.1); Sodium 132 mmol/L (136-145)
== END 2021-10-24 18:15 | disposition home or self-care (01) ==
LOC: LBN 18:14
PROVIDERS: Visit Provider Nurse Practitioner Gerontology
DX: R68.89 Other general symptoms and signs (principal); E66.8 Other obesity
CPT/HCPCS: 80048; 85025

== ENCOUNTER 2021-11-30 19:39 | Outpatient (REF) | payer MEDICARE, MEDICAID, SELFPAY ==
[2021-11-30 20:02] LABS: Abs Immature Grans 0.03 10^3/uL (0.0-0.06); Absolute Basophil Count 0.05 10^3/uL (0.0-0.2); Absolute Eosinophil Count 0.25 10^3/uL (0.0-0.7); Absolute Lymphocyte Count 2.59 10^3/uL (1.2-3.4); Absolute Monocyte Count 0.99 10^3/uL (0.1-0.8); Absolute Neutrophil Count 6.06 10^3/uL (1.2-6.7); Basophils % 0.5; Eosinophils % 2.5; HCT 31.8 % (40.0-50.0); HGB 10.5 g/dL (13.5-17.5); Immature Grans % 0.3; MCH 33.3 pg (27.0-33.0); MCV 101 fL (80-95); MPV 10.7 fL (8.0-11.0); Monocytes % 9.9; Neutrophils % 60.8; Platelet Count 239 10^3/uL (130-400); RBC 3.15 10^6/uL (4.36-5.78); RDW 13.1 % (11.8-14.1); RDW-SD 47.7 fL; WBC 9.97 10^3/uL (4.4-10.8)
[2021-11-30 20:33] LABS: ALT 22 U/L (16-63); AST 19 U/L (15-37); Albumin 3.2 g/dL (3.4-5.0); Alkaline Phosphatase 87 U/L (46-116); Anion Gap 6.8 mmol/L (3-11); BUN 14 mg/dL (7-18); Bilirubin, Total 0.3 mg/dL (0.2-1.0); CO2 28.2 mmol/L (21.0-32.0); CREATININE 0.7 mg/dL (0.70-1.30); Calcium 8.6 mg/dL (8.5-10.1); Chloride 95 mmol/L (98-107); Estimated GFR 98.51 (mL/min/1.73m2); Glucose 90 mg/dL (74-106); NT-proBNP 931 pg/mL (<300); Potassium 4.7 mmol/L (3.5-5.1); Sodium 130 mmol/L (136-145); Total Protein 7.3 g/dL (6.4-8.2)
== END 2021-11-30 19:40 | disposition home or self-care (01) ==
LOC: LBN 19:39
PROVIDERS: Visit Provider Nurse Practitioner Gerontology
DX: F10.10 Alcohol abuse, uncomplicated (principal); M46.1 Sacroiliitis, not elsewhere classified; I44.2 Atrioventricular block, complete; R53.1 Weakness; E87.1 Hypo-osmolality and hyponatremia; I25.10 Atherosclerotic heart disease of native coronary artery without angina pectoris
CPT/HCPCS: 80053; 83880; 85025

== ENCOUNTER 2021-12-04 12:38 | Outpatient (REF) | payer MEDICARE, MEDICAID, SELFPAY ==
[2021-12-04 14:22] LABS: Abs Immature Grans 0.05 10^3/uL (0.0-0.06); Absolute Basophil Count 0.07 10^3/uL (0.0-0.2); Absolute Lymphocyte Count 2.31 10^3/uL (1.2-3.4); Absolute Neutrophil Count 6.02 10^3/uL (1.2-6.7); Basophils % 0.7; HCT 34.2 % (40.0-50.0); HGB 11.3 g/dL (13.5-17.5); Immature Grans % 0.5; Lymphocytes % 23.5; MCH 33.9 pg (27.0-33.0); MCV 103 fL (80-95); MPV 11.1 fL (8.0-11.0); Monocytes % 11.2; Neutrophils % 61.1; Platelet Count 254 10^3/uL (130-400); RBC 3.33 10^6/uL (4.36-5.78); RDW 13.5 % (11.8-14.1); WBC 9.85 10^3/uL (4.4-10.8)
[2021-12-04 14:40] LABS: ALT 22 U/L (16-63); AST 21 U/L (15-37); Albumin 3.4 g/dL (3.4-5.0); Alkaline Phosphatase 93 U/L (46-116); Anion Gap 5.7 mmol/L (3-11); BUN 12 mg/dL (7-18); Bilirubin, Total 0.4 mg/dL (0.2-1.0); CO2 30.3 mmol/L (21.0-32.0); CREATININE 0.7 mg/dL (0.70-1.30); Calcium 9.1 mg/dL (8.5-10.1); Chloride 95 mmol/L (98-107); Estimated GFR 98.51 (mL/min/1.73m2); Glucose 98 mg/dL (74-106); NT-proBNP 486 pg/mL (<300); Potassium 5.8 mmol/L (3.5-5.1); Sodium 131 mmol/L (136-145); Total Protein 7.8 g/dL (6.4-8.2)
== END 2021-12-04 12:39 | disposition home or self-care (01) ==
LOC: LBN 12:38
PROVIDERS: Visit Provider Nurse Practitioner Gerontology
DX: I25.10 Atherosclerotic heart disease of native coronary artery without angina pectoris (principal); J44.9 Chronic obstructive pulmonary disease, unspecified; K70.9 Alcoholic liver disease, unspecified; M62.81 Muscle weakness (generalized); I44.2 Atrioventricular block, complete; F10.10 Alcohol abuse, uncomplicated; J90 Pleural effusion, not elsewhere classified; Z87.09 Personal history of other diseases of the respiratory system; Z95.0 Presence of cardiac pacemaker
CPT/HCPCS: 80053; 83880; 85025

== ENCOUNTER 2021-12-07 17:10 | Outpatient (REF) | payer MEDICARE, MEDICAID, SELFPAY ==
[2021-12-07 20:17] LABS: Anion Gap 8.5 mmol/L (3-11); BUN 13 mg/dL (7-18); CO2 25.5 mmol/L (21.0-32.0); CREATININE 0.7 mg/dL (0.70-1.30); Calcium 8.4 mg/dL (8.5-10.1); Chloride 94 mmol/L (98-107); Estimated GFR 98.51 (mL/min/1.73m2); Glucose 92 mg/dL (74-106); Potassium 4.4 mmol/L (3.5-5.1); Sodium 128 mmol/L (136-145)
== END 2021-12-07 17:11 | disposition home or self-care (01) ==
LOC: LBN 17:10
PROVIDERS: Visit Provider Nurse Practitioner Gerontology
DX: I25.10 Atherosclerotic heart disease of native coronary artery without angina pectoris (principal); J44.9 Chronic obstructive pulmonary disease, unspecified; R53.1 Weakness; I44.2 Atrioventricular block, complete; J90 Pleural effusion, not elsewhere classified
CPT/HCPCS: 80048

== ENCOUNTER 2021-12-13 18:28 | Outpatient (REF) | payer MEDICARE, MEDICAID, SELFPAY ==
[2021-12-13 18:53] LABS: Abs Immature Grans 0.05 10^3/uL (0.0-0.06); Absolute Basophil Count 0.08 10^3/uL (0.0-0.2); Absolute Eosinophil Count 0.22 10^3/uL (0.0-0.7); Absolute Lymphocyte Count 2.61 10^3/uL (1.2-3.4); Absolute Monocyte Count 1.12 10^3/uL (0.1-0.8); Absolute Neutrophil Count 5.65 10^3/uL (1.2-6.7); Basophils % 0.8; Eosinophils % 2.3; HCT 32.8 % (40.0-50.0); HGB 11.2 g/dL (13.5-17.5); Immature Grans % 0.5; Lymphocytes % 26.8; MCH 34.3 pg (27.0-33.0); MCHC 34.1 % (32.0-36.0); MCV 100 fL (80-95); MPV 10.7 fL (8.0-11.0); Monocytes % 11.5; Neutrophils % 58.1; Platelet Count 256 10^3/uL (130-400); RBC 3.27 10^6/uL (4.36-5.78); RDW 13.5 % (11.8-14.1); RDW-SD 49.6 fL; WBC 9.73 10^3/uL (4.4-10.8)
[2021-12-13 19:30] LABS: ALT 17 U/L (16-63); AST 21 U/L (15-37); Albumin 3.3 g/dL (3.4-5.0); Alkaline Phosphatase 99 U/L (46-116); Anion Gap 6.2 mmol/L (3-11); BUN 13 mg/dL (7-18); Bilirubin, Total 0.4 mg/dL (0.2-1.0); CO2 28.8 mmol/L (21.0-32.0); CREATININE 0.7 mg/dL (0.70-1.30); Calcium 8.6 mg/dL (8.5-10.1); Chloride 92 mmol/L (98-107); Estimated GFR 98.51 (mL/min/1.73m2); Glucose 98 mg/dL (74-106); NT-proBNP 502 pg/mL (<300); Potassium 4.2 mmol/L (3.5-5.1); Sodium 127 mmol/L (136-145); Total Protein 7.7 g/dL (6.4-8.2)
== END 2021-12-13 18:29 | disposition home or self-care (01) ==
LOC: LBN 18:28
PROVIDERS: Visit Provider Nurse Practitioner Gerontology
DX: F10.10 Alcohol abuse, uncomplicated (principal)
CPT/HCPCS: 80053; 83880; 85025

== ENCOUNTER → 2021-12-14 00:18 | Outpatient (CLI) | payer MEDICARE, MEDICAID, SELFPAY ==
--- OUTSIDE RECORDS SUMMARY | 2021-12-14 00:26 | XMS_ITS | Encounter Summary ---
:1950 Author Organization [facility] Address [address] [place] [address] Care Team Providers Name Role Phone Katia Stone PA-C Primary Care Provider Encounter Details Date Type Department Care Team Description 09/15/2020 Results Only [facility] - Junior Ruiz [facility] Lab [address] [place], [place] [phone] (Wo rk) Social History Tobacco Use [...] nature WBC 6.7 4.0 - 10.[address] LAB RBC 3.26 (L) 4.70 - 6.[address] LAB Hemoglobin 11.2 (L) 13.5 - 18.0 [facility] g/dL [place] LAB HCT 31.9 (L) 42.0 - 52.0 % [facility] LAB MCV 97.9 78 - 100 fL [facility] LAB MCH 34.4 (H) 27 - 31 pg [facility] LAB MCHC 35.1 32 - 37 g/dL [facility] LAB RDW-CV - PMC 12.4 <14.7 % [facility] LAB PLATELET COUNT - PMC 256 150 - [address] LAB MPV 10.6 9.2 - 12.0 fL [facility] LAB Specimen Performing Organization Address City/State/ZIP Code Phon e Number [facility] LAB [address] [place] [address] documented in this encounter Visit Diagnoses Not on filedocumented in this encounter Care Teams Burner Tender Relationship Specialty Start Date End Date Katia Stone PA-C PCP - General 05/02/[address] [place] [phone] documented as of this encounter
--- OUTSIDE RECORDS SUMMARY | 2021-12-14 00:26 | XMS_ITS | Encounter Summary ---
:[address] [facility] Address [address] [place] [address] Care Team Providers Name Role Phone Katia Stone PA-C Primary Care Provider Encounter Details Date Type Department Care Team Description 08/25/2020 Lab Requisition [facility] Outr Resulting Lab, Pathology & Laboratory Provider [facility] [address] [place] [address] Social History Tobacco Use Types [...] nature Organism ID Few Usual skin jesi [facility] SERVICES Smear Few Neutrophils [facility] Present (A) LABORATORY SERVICES Smear No bacteria seen (A) [facility]ORATORY SERVICES Specimen Swab - Entire upper limb (body structure ) Performing Organization Address City/State/ZIP Code Phon e Number [facility]ORY [address] [place] [address] SERVICES documented in this encounter Visit Diagnoses Not on filedocumented in this encounter Care Teams Geology Technician Relationship Specialty Start Date End Date Katia Stone PA-C PCP - General 05/02/[address] [place] [phone] documented as of this encounter
--- OUTSIDE RECORDS SUMMARY | 2021-12-14 00:26 | XMS_ITS | Encounter Summary ---
:1950 Author Organization [facility] Address [address] [place] [address] Care Team Providers Name Role Phone Katia Stone PA-C Primary Care Provider Encounter Details Date Type Department Care Team Description 08/25/2020 Lab Requisition [facility] Outr Resulting Lab, Pathology & Laboratory Provider [facility] [address] [place] [address] Social History Tobacco Use Types [...] Name Priority Date/Time Associated Diagnosis Comme nts HSV (HERPES SIMPLEX Routine 08/25/2020 14:15 Resu lts for this VIRUS) MOLECULAR EDT procedure a re in DETECTION, PCR the results section. documented in this encounter Results HERPES SIMPLEX VIRUS MOLECULAR DETECTION, PCR (08/25/2020 14:15 EDT) Pathologist Sig nature Herpes Simplex Virus Negative Negative [facility] Molecular Detection 1, LABORATORY SERVICE S PCR Herpes Simplex Virus Negative Negative [facility] Molecular Detection 2, LABORATORY SERVICE S PCR Specimen Swab - Entire upper limb (body structure ) Performing Organization Address City/State/ZIP Code Phon e Number [facility] LABORATORY [address] [place] [address] SERVICES documented in this encounter Visit Diagnoses Not on filedocumented in this encounter Care Teams Director Metabolism Relationship Specialty Start Date End Date Katia Stone PA-C PCP - General 05/02/[address] [place] [phone] documented as of this encounter
--- OUTSIDE RECORDS SUMMARY | 2021-12-14 00:26 | XMS_ITS | Encounter Summary ---
:1950 Author Organization [facility] Address [address] [place] [address] Care Team Providers Name Role Phone Katia Stone PA-C Primary Care Provider Reason for Visit (Routine/Next Available) - New Request Specialty Diagnoses / Procedures Referred By Contact Refer red To Contact Procedures Unknown, Provider, CT OUTSIDE IMAGES BODY Phone: Referral ID Status Reason Start Date Expiration Date Visits V isits Requested Authorized [id number] New Request 06/20/2021 1 1 Encounter Details Date Type Department Care Team Description 06/20/2021 Hospital Encounter [facility] Secondary Reads [place] Social History Tobacco [...] on filedocumented in this encounter Care Teams Rail Technician Relationship Specialty Start Date End Date Katia Stone, BELLAC PCP - General 05/02/[address] [place] [phone] documented as of this encounter
--- OUTSIDE RECORDS SUMMARY | 2021-12-14 00:26 | XMS_ITS | Encounter Summary ---
:1950 Author Organization [facility] Address [address] [place] [address] Care Team Providers Name Role Phone Katia Stone PA-C Primary Care Provider Encounter Details Date Type Department Care Team Description 08/18/2020 Results Only [facility] - Junior Ruiz [facility] Lab [address] [place], [place] [phone] (Wo rk) Social History Tobacco Use [...] EDT) Sodium 138 136 - 145 mEq/L LAB Potassium 3.3 (L) 3.5 - 5.1 mEq/L LAB Chloride 101 96 - 107 mEq/L LAB CO2 Total 31.3 21 - 32 mEq/L LAB Anion Gap 5.7 mEq/L LAB BUN 9 7 - 25 mg/dl LAB Creatinine 0.66 (L) 0.70 - 1.30 [facility] mg/dl [place] LAB Estimated GFR >60 >60 [facility] Comment: CENTER LAB EGFR UNITS: mL/min/1.73 m 2 CKD-EPI Equation used to calculate. Glucose 86 74 - 106 mg/dl LAB Calcium 8.0 (L) 8.5 - 10.1 [facility] mg/dl [place] LAB Specimen Performing Organization Address City/State/ZIP Code Phon e Number LAB [address] [place] [address] (ABNORMAL) COMPLETE BLOOD COUNT (08/18/2020 5:15 EDT) Pathologist Sig nature WBC 5.2 4.0 - 10.5 10 [facility] 3/uL [facility]ENTER LAB RBC 2.68 (L) 4.70 - 6.00 10 [facility] 6/uL [place] LAB Hemoglobin 9.4 (L) 13.5 - 18.0 [facility] g/dL [place] LAB HCT 27.5 (L) 42.0 - 52.0 % LAB MCV 102.6 (H) 78 - 100 fL LAB MCH 35.1 (H) 27 - 31 pg LAB MCHC 34.2 32 - 37 g/dL LAB RDW-CV - PMC 15.2 (H) <14.7 % LAB PLATELET COUNT - [facility] 233 150 - 450 10 [place] [address]/[facility] LAB MPV 10.3 9.2 - 12.0 [facility] LAB Specimen Performing Organization Address City/State/ZIP Code Phon e Number LAB [address] [place] [address] documented in this encounter Visit Diagnoses Not on filedocumented in this encounter Care Teams Timber Treating Tank Operator Relationship Specialty Start Date End Date Katia Stone PA-C PCP - General 05/02/[address] [place] [phone] documented as of this encounter
--- OUTSIDE RECORDS SUMMARY | 2021-12-14 00:26 | XMS_ITS | Encounter Summary ---
:1950 Author Organization [facility] Address [address] [place] [address] Care Team Providers Name Role Phone Katia Stone PA-C Primary Care Provider Encounter Details Date Type Department Care Team Description 09/14/2020 Results Only [facility] Rowan Abad NP [phone] [place] [phone] (Wo rk) Social History Tobacco Use [...] Pathologist Sig nature PLATELET COUNT - PMC 94 (L) 150 - 450 10 [facility] 3/uL [facility] LAB Specimen Narrative LAB - 09/14/2020 6 :16 EDT Comment ENOXAPARIN MONITORING Performing Organization Address City/[facility] Code Phon e Number LAB [address] [place] [address] (ABNORMAL) CREATININE WITH GFR - PMC (09/14/2020 5:35 EDT) Creatinine 0.58 (L) 0.70 - 1.30 [facility] mg/dl [facility] LAB Estimated GFR >60 >60 [facility] Comment: CENTER LAB EGFR UNITS: mL/min/1.73 m 2 CKD-EPI Equation used to calculate. Specimen Performing Organization Address [facility] Phon e Number LAB [address] [place] [address] documented in this encounter Visit Diagnoses Not on filedocumented in this encounter Care Teams Egg Separator Relationship Specialty Start Date End Date Katia Stone PA-C PCP - General 05/02/[address] [place] [phone] documented as of this encounter
--- OUTSIDE RECORDS SUMMARY | 2021-12-14 00:26 | XMS_ITS | Encounter Summary ---
:1950 Author Organization [facility] Address [address] [place] [address] Care Team Providers Name Role Phone Katia Stone PA-C Primary Care Provider Encounter Details Date Type Department Care Team Description 08/29/2020 Results Only [facility]- [facility] Rowan Abad NP [phone] [place] [phone] (Wo rk) Social History Tobacco Use [...] used to calculate. Specimen Performing Organization Address City/[facility] Phon e Number [facility] [address] [place] [address] PLATELET COUNT (08/29/2020 5:05 EDT) Pathologist Sig nature PLATELET COUNT - [facility] 324 150 - 450 10 [facility] 3/uL CENTER LAB Specimen Narrative [facility] - 08/29/2020 5 :41 EDT Comment ENOXAPARIN MONITORING Performing Organization Address City/[facility] Phon e Number [facility] [address] [place] [address] documented in this encounter Visit Diagnoses Not on filedocumented in this encounter Care Teams Statistical Reporting Analyst Relationship Specialty Start Date End Date Katia Stone PA-C PCP - General 05/02/17 [address] [place] [phone] documented as of this encounter
--- OUTSIDE RECORDS SUMMARY | 2021-12-14 00:26 | XMS_ITS | Encounter Summary ---
:1950 Author Organization [facility] Address [address] [place] [address] Care Team Providers Name Role Phone Katia Stone PA-C Primary Care Provider Encounter Details Date Type Department Care Team Description 08/25/2020 Results Only [facility]- [facility] Rowan Abad NP [phone] [place] [phone] (Wo rk) Social History Tobacco Use [...] procedure are i n the results section. HSV (HERPES SIMPLEX Routine 08/25/2020 14:15 Resu lts for this VIRUS) MOLECULAR EDT procedure a re in DETECTION, PCR the results section. CREATININE WITH GFR Routine 08/25/2020 6:09 EDT R esults for this - [facility] procedure are i n the results section. PLATELET COUNT Routine 08/25/2020 6:09 EDT Result s for this procedure are i n the results section. documented in this encounter Results (ABNORMAL) ORGANISM ID FROM PLATE - PMC (08/25/2020 14:15 EDT) GRAM SMEAR - PMC SEE NOTES (A) [facility] Comment: CENTER LAB RESULT: Few Neutrophils Present No bacteria seen SWATI Few Usual skin jesi [facility] RESULTS/ORGANISM Comment: CENTER LAB ID - PMC Spec Description ?? Additional Information:: LEFT ARM Source:ARM Test [place] [address] Specimen Narrative [facility] - 08/27/2020 1 7:20 EDT ARM LEFT ARM Performing Organization Address City/State/ZIP Code Phon e Number [facility] [address] [place] [address] HERPES SIMPLEX VIRUS MOLECULAR DETECTION, PCR (08/25/2020 14:15 EDT) HERPES SIMPLEX Negative Negative [facility] DNA - [facility] CENTER LAB HERPES SIMPLEX Negative Negative [facility] DNA - [facility] Comment: CENTER LAB SOURCE:: ARM Spec Description ?? Additional Information:: LEFT ARM Source:LEFT ARM Test performed or referred by The [address] [address] Specimen Narrative [facility] - 08/26/2020 1 9:39 EDT ARM LEFT ARM Performing Organization Address [facility] Phon e Number [facility] [address] [place] [address] (ABNORMAL) CREATININE WITH GFR - PMC (08/25/2020 6:09 EDT) Creatinine 0.60 (L) 0.70 - 1.30 [facility] mg/dl CENTER LAB Estimated GFR >60 >60 [facility] Comment: CENTER LAB EGFR UNITS: mL/min/1.73 m 2 CKD-EPI Equation used to calculate. Specimen Performing Organization Address [facility] Phon e Number [facility] [address] [place] [address] PLATELET COUNT (08/25/2020 6:09 EDT) Pathologist Sig nature PLATELET COUNT - [facility] 326 150 - 450 10 [facility] 3/uL CENTER LAB Specimen Narrative [facility] - 08/25/2020 7 :06 EDT Comment ENOXAPARIN MONITORING Performing Organization Address [facility] e Number [facility] [address] [place] [address] documented in this encounter Visit Diagnoses Not on filedocumented in this encounter Care Teams Mask Former Relationship Specialty Start Date End Date Katia Stone PA-C PCP - General 05/02/[address] [place] [phone] documented as of this encounter
--- OUTSIDE RECORDS SUMMARY | 2021-12-14 00:26 | XMS_ITS | Encounter Summary ---
:1950 Author Organization [facility] Address [address] [place] [address] Care Team Providers Name Role Phone Katia Stone PA-C Primary Care Provider Reason for Visit Reason Comments Diarrhea Extremity Weakness Alcohol Problem Palliative Care Symptom Management Encounter Details Date Type Department Care Team Description 08/25/2020 External Contact [facility] Cooper Stinson MD Frailty (Primary Dx); - [address] ETOH abus e; [place] [facility] Grief; [facility] Palliative care by [address] [place] [phone] (Wo rk) Social History Tobacco Use [...] chronic ETOH use who was admitted to [facility] with weakness, diarrhea, and regular ETOH [...] be receptive to formal psychotherapy. A bereavement manager language through [facility] may be a good fit as well. Re: his advance directive. 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 for [facility] information. Present for Visit: Tim, [...] his heart attack and was transferred to [place]. He has had several cardiac issues since. He is originally from [place] and lived in the [place] area until 2018 when his medical issues became more acute. S shannan then, he has lived in [place] [facility] [place] [facility] [place], had lived with his son Tyrese until his and more recently living with Tyrese's partner Whitney. He was raised on a farm in [place] with 7 siblings. He farmed himself, then [...] Stinson MD 08/25/2020 16:11 Site of Visit: [facility] I spent a total of 55 [...] specialist documented in this encounter Care Teams Coding Educator Relationship Specialty Start Date End Date Katia Stone PA-C PCP - General 05/02/[address] [place] [phone] documented as of this encounter
--- OUTSIDE RECORDS SUMMARY | 2021-12-14 00:26 | XMS_ITS | Encounter Summary ---
:1950 Author Organization [facility] Address [address] [place] [address] Care Team Providers Name Role Phone Katia Stone PA-C Primary Care Provider Encounter Details Date Type Department Care Team Description 08/20/2020 Results Only [facility] [address] [place] [address] [place], [place] [phone] (Wo rk) Social History Tobacco Use [...] 08/20/2020 12:51 Resu lts for this - [facility] EDT procedure are i n the results section. documented in this encounter Results ADD ON TEST REQUEST - [facility] (08/20/2020 12:51 EDT) Pathologist Sig nature Special Requests ADD ON DONE [facility] Comment: CENTER LAB All tests (see tests in sample comments) have been add ed as requested. Specimen Narrative [facility] - 08/20/2020 1 2:58 EDT today on the med/surg Magnesium Performing Organization Address City/[facility] Code Phon e Number [facility] [address] [place] [address] documented in this encounter Visit Diagnoses Not on filedocumented in this encounter Care Teams Form Builder Relationship Specialty Start Date End Date Katia Stone PA-C PCP - General 05/02/[address] [place] [phone] documented as of this encounter
--- OUTSIDE RECORDS SUMMARY | 2021-12-14 00:26 | XMS_ITS | Encounter Summary ---
:1950 Author Organization [facility] Address [address] [place] [address] Care Team Providers Name Role Phone Katia Stone PA-C Primary Care Provider Encounter Details Date Type Department Care Team Description 08/22/2020 Results Only [facility]- [facility] Rowan Abad NP [phone] [place] [phone] (Wo rk) Social History Tobacco Use [...] nature Magnesium 1.8 1.8 - 2.4 mg/dl [facility] Specimen Performing Organization Address [facility] Phon e Number [facility] [address] [place] [address] (ABNORMAL) BASIC METABOLIC PANEL (BMP) (08/22/2020 5:30 EDT) Sodium 133 (L) 136 - 145 mEq/L [facility] Potassium 3.7 3.5 - 5.1 mEq/L [facility] Chloride 101 96 - 107 mEq/L [facility] CO2 Total 26.1 21 - 32 mEq/L [facility] Anion Gap 6.9 mEq/L [facility] BUN 8 7 - 25 mg/dl [facility] Creatinine 0.67 (L) 0.70 - 1.30 [facility] mg/dl [facility]ENTER [facility] Estimated GFR >60 >60 [facility] Comment: CENTER [facility] EGFR UNITS: mL/min/1.73 m 2 CKD-EPI Equation used to calculate. Glucose 94 74 - 106 mg/dl [facility] Calcium 8.2 (L) 8.5 - 10.1 [facility] mg/dl [facility] Specimen Performing Organization Address [facility] Phon e Number [facility] [address] [place] [address] (ABNORMAL) COMPLETE BLOOD COUNT AND DIFFERENTIAL (08/22/2020 5:30 EDT) WBC 6.0 4.0 - 10.5 10 [facility] 3/uL [place] [facility] RBC 2.84 (L) 4.70 - 6.00 10 [facility] 6/uL [place] [facility] Hemoglobin 10.0 (L) 13.5 - 18.0 g/dL [facility] HCT 28.3 (L) 42.0 - 52.0 % [facility] MCV 99.6 78 - 100 fL [facility] MCH 35.2 (H) 27 - 31 pg [facility] MCHC 35.3 32 - 37 g/dL [facility] RDW-CV - PMC 14.3 <14.7 % [facility] PLATELET COUNT - 209 150 - 450 10 3/uL [facility] MPV 11.7 9.2 - 12.0 fL [facility] NEUTROPHILS % 58.1 % [facility] (AUTO) [facility] LYMPHOCYTES % 22.9 % [facility] (AUTO) [facility] MONOCYTES % (AUTO) 14.4 % [facility] EOSINOPHILS % 3.3 NOT ESTABLISHED % [facility] (AUTO) [facility] BASOPHILS % (AUTO) 1.0 % [facility] Immature 0.3 % [facility] Granulocyte [facility] (Auto) NUCLEATED RBC % 0.0 % [facility] (AUTO) [facility] NEUTROPHILS # 3.5 1.5 - 6.6 10 3/uL [facility] (AUTO) [facility] LYMPHOCYTES # 1.4 1.0 - 3.5 10 3/uL [facility] (AUTO) [facility] MONOCYTES # (AUTO) 0.9 <1.0 10 3/uL [facility] EOSINOPHILS # 0.2 <0.7 10 3/uL [facility] (AUTO) [facility] BASOPHILS # (AUTO) 0.1 <0.1 10 3/uL [facility] Absolute Immature 0.02 <0.06 10 3/uL [facility] DIFFERENTIAL Auto Differential [facility] Specimen Performing Organization Address City/State/ZIP Code Phon e Number [facility] [address] [place] [address] documented in this encounter Visit Diagnoses Not on filedocumented in this encounter Care Teams Pool Table Operator Relationship Specialty Start Date End Date Katia Stone, PABijalC PCP - General 05/02/17 [address] [place] [phone] documented as of this encounter
--- OUTSIDE RECORDS SUMMARY | 2021-12-14 00:26 | XMS_ITS | Clinical Summary ---
:1950 Author Organization [facility] Address [address] [place] [address] Care Team Providers Name Role Phone Katia Stone PA-C Primary Care Provider Allergies No known active allergies Medications Medication [...] 20mg (20) 07/01-07/14; 10mg (10) 07/15-07/28; 5mg (2 of 10) 07/29-08/04 ibuprofen (MOTRIN) 200 Take 180 mg by 0 Active mg tablet mouth 2 times daily. omeprazole (PRILOSEC) 20 Take 20 mg by 0 Active mg capsule mouth daily. 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 Hypertensive urgency 05/01/2017 Heart block AV third degree ([facility]) 04/30/2017 Resolved Problems Problem Noted Date Resolved Date Acute on chronic diastolic congestive heart failure 05/02/19 18 05/27/2017 ([facility] Surgical History Surgery Date Site/Laterality Comments PACEMAKER PLACEMENT 03/03/2017 - 03/02/2018 OTHER SURGICAL HISTORY 06/19/20 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 3830 Selectsecure Mri Surescan - [id number] Lead Medtro velasquez 3830 SelectSecure MRI SureScan / Implanted: 05/21/2017 (Quantity not on file) [id number] / Description: Implant record loaded by IM P Chronicles import. L111 Essentio Mri - [id number] Pacemaker [employer] L111 ESSENTIO MRI / Implanted: 05/02/2017 (Quantity not on file) [id number] / Description: Implant record loaded by IM P Chronicles import. Insurance Payer Benefit Plan Subscriber ID Effective Phone Address Typ e / Group Dates MEDICARE ACO MEDICARE ACO [id number] 2021-Prese [id number] [place] [facility] [place] [phone] MEDICARE MEDICARE A/B [id number] 2015-Prese [address] [place] [phone] [place] [id number] 2019-Prese [address] [place] [facility] [id number] Tim Mera Personal/Family Self 1950 [facility] [place] [address] Tim Mera Personal/Family Self 1950 [facility] [place] [address] Tim Mera Personal/Family Self 1950 [facility] [place] [address] Tim Mera Personal/Family Self 1950 [facility] [place] [address] Tim Mera Personal/Family Self 1950 [facility] [place] [address] Tim Mera Personal/Family Self 1950 [facility] [place] [address] Tim Mera Personal/Family Self 1950 [facility] [place] [address] Advance Directives For more information, please contact: [phone] Documents on File Type Date Recorded Patient Drafter Geophysical Explanati on Advance Directive Latest Code Status [...] in the discussion? Not Discussed Care Teams Finger Buff Sewer Relationship Specialty Start Date End Date Katia Stone, PABijalC PCP - General 05/02/17 [address] [place] [phone]
--- OUTSIDE RECORDS SUMMARY | 2021-12-14 00:26 | XMS_ITS | Encounter Summary ---
:1950 Author Organization [facility] Address [address] [place] [address] Care Team Providers Name Role Phone Katia Stone PA-C Primary Care Provider Encounter Details Date Type Department Care Team Description 08/19/[address] [facility] - Junior Ruiz [facility] [address] [place], [place] [phone] (Wo rk) Social History Tobacco Use [...] Sodium 134 (L) 136 - 145 mEq/L [facility] Potassium 3.5 3.5 - 5.1 mEq/L [facility] Chloride 99 96 - 107 mEq/L [facility] CO2 Total 29.4 21 - 32 mEq/L [facility] Anion Gap 5.6 mEq/L [facility] BUN 8 7 - 25 mg/dl [facility] Creatinine 0.48 (L) 0.70 - 1.30 [facility] mg/dl [facility]ENTER [facility] Estimated GFR >60 >60 [facility] Comment: CENTER LAB EGFR UNITS: mL/min/1.73 m 2 CKD-EPI Equation used to calculate. Glucose 93 74 - 106 mg/dl [facility] Calcium 8.3 (L) 8.5 - 10.1 [facility] mg/dl [place] [facility] Specimen Performing Organization Address City/State/ZIP Code Phon e Number [facility] [address] [place] [address] documented in this encounter Visit Diagnoses Not on filedocumented in this encounter Care Teams Pm Technician Relationship Specialty Start Date End Date Katia Stone PA-C PCP - General 05/02/[address] [place] [phone] documented as of this encounter
--- OUTSIDE RECORDS SUMMARY | 2021-12-14 00:26 | XMS_ITS | Encounter Summary ---
:1950 Author Organization [facility] Address [address] [place] [address] Care Team Providers Name Role Phone Katia Stone PA-C Primary Care Provider Encounter Details Date Type Department Care Team Description 09/26/2020 Results Only [facility] Rowan Abad NP [phone] [place] [phone] (Wo rk) Social History Tobacco Use [...] Magnesium 1.7 (L) 1.8 - 2.4 mg/dl [facility] Specimen Performing Organization Address [facility] Phon e [facility] [address] [place] [address] (ABNORMAL) BASIC METABOLIC PANEL (BMP) (09/26/2020 14:33 EDT) Sodium 131 (L) 136 - 145 mEq/L [facility] Potassium 4.2 3.5 - 5.1 mEq/L [facility] Chloride 96 96 - 107 mEq/L [facility] CO2 Total 30.9 21 - 32 mEq/L [facility] Anion Gap 3.1 mEq/L [facility] BUN 10 7 - 25 mg/dl [facility] Creatinine 0.82 0.70 - 1.30 [facility] mg/dl [facility]ENTER LAB Estimated GFR >60 >60 [facility] Comment: CENTER LAB EGFR UNITS: mL/min/1.73 m 2 CKD-EPI Equation used to calculate. Glucose 111 (H) 74 - 106 mg/dl [facility] Calcium 8.6 8.5 - 10.1 [facility] mg/dl [facility]ENTER [facility] Specimen Performing Organization Address [facility] Phon e Number [facility] [address] [place] [address] (ABNORMAL) COMPLETE BLOOD COUNT AND DIFFERENTIAL (09/26/2020 14:33 EDT) WBC 7.3 4.0 - 10.5 10 [facility] 3/uL [place] [facility] RBC 3.30 (L) 4.70 - 6.00 10 [facility] 6/uL [facility] [facility] Hemoglobin 11.2 (L) 13.5 - 18.0 g/dL [facility] HCT 32.0 (L) 42.0 - 52.0 % [facility] MCV 97.0 78 - 100 fL [facility] MCH 33.9 (H) 27 - 31 pg [facility] MCHC 35.0 32 - 37 g/dL [facility] RDW-CV - PMC 11.7 <14.7 % [facility] PLATELET COUNT - 291 150 - 450 10 3/uL [facility] MPV 11.0 9.2 - 12.0 fL [facility] NEUTROPHILS % 59.3 % [facility] (AUTO) [facility] LYMPHOCYTES % 23.9 % [facility] (AUTO) [facility] MONOCYTES % (AUTO) 12.3 % [facility] EOSINOPHILS % 2.9 NOT ESTABLISHED % [facility] (AUTO) [facility] BASOPHILS % (AUTO) 1.0 % [facility] Immature 0.6 % [facility] Granulocyte % [facility] (Auto) NUCLEATED RBC % 0.0 % [facility] (AUTO) [facility] NEUTROPHILS # 4.3 1.5 - 6.6 10 3/uL [facility] (AUTO) [facility] LYMPHOCYTES # 1.7 1.0 - 3.5 10 3/uL [facility] (AUTO) [facility] MONOCYTES # (AUTO) 0.9 <1.0 10 3/uL [facility] EOSINOPHILS # 0.2 <0.7 10 3/uL [facility] (AUTO) [facility] BASOPHILS # (AUTO) 0.1 <0.1 10 3/uL [facility] Absolute Immature 0.04 <0.06 10 3/uL [facility] Granulocyte [facility] [facility] DIFFERENTIAL Auto Differential [facility] Specimen Performing Organization Address City/State/ZIP Code Phon e Number [facility] [address] [place] [address] documented in this encounter Visit Diagnoses Not on filedocumented in this encounter Care Teams Mold Machine Operator Relationship Specialty Start Date End Date Katia Stone, PABijalC PCP - General 05/02/17 [address] [place] [phone] documented as of this encounter
--- OUTSIDE RECORDS SUMMARY | 2021-12-14 00:26 | XMS_ITS | Encounter Summary ---
:1950 Author Organization [facility] Address [address] [place] [address] Care Team Providers Name Role Phone Katia Stone PA-C Primary Care Provider Reason for Visit Reason Onset Date Comments Discuss Possible Transfer 06/20/2021 Encounter Details Date Type Department Care Team Description 06/20/2021 Telephone [facility] Jeancarlos-Amos Carver D iscuss Possible MEDICINE MD Transfer [address] [address] [place] [phone] (Wo rk) Social History Tobacco [...] 06/20/2021 1415 EDT PPS Call Requesting Facility: [facility] Requesting Provider: Dr. Alegria Date: 06/20/21 Time [...] effusion (per read from imaging 08/08/20 from [facility], thisis chronic) and R iliac + gluteal [...] on filedocumented in this encounter Care Teams Crap Game Box Person Relationship Specialty Start Date End Date Katia Stone PA-C PCP - General 05/02/[address] [place] [phone] documented as of this encounter
--- OUTSIDE RECORDS SUMMARY | 2021-12-14 00:26 | XMS_ITS | Encounter Summary ---
:1950 Author Organization [facility] Address [address] [place] [address] Care Team Providers Name Role Phone Katia Stone PA-C Primary Care Provider Encounter Details Date Type Department Care Team Description 09/10/2020 Results Only [facility] Rowan Abad NP [phone] [place] [phone] (Wo rk) Social History Tobacco Use [...] EDT) Pathologist Sig nature PLATELET COUNT - [facility] 250 150 - 450 10 [facility] 3/uL CENTER LAB Specimen Narrative [facility] - 09/10/2020 6 :49 EDT Comment ENOXAPARIN MONITORING Performing Organization Address City/[facility] Code Phon e Number [facility] [address] [place] [address] (ABNORMAL) CREATININE WITH GFR - PMC (09/10/2020 5:40 EDT) Creatinine 0.57 (L) 0.70 - 1.30 [facility] mg/dl CENTER LAB Estimated GFR >60 >60 [facility] Comment: CENTER LAB EGFR UNITS: mL/min/1.73 m 2 CKD-EPI Equation used to calculate. Specimen Performing Organization Address [facility] e [facility] LAB [address] [place] [address] documented in this encounter Visit Diagnoses Not on filedocumented in this encounter Care Teams Coding Director Relationship Specialty Start Date End Date Katia Stone PA-C PCP - General 05/02/[address] [place] [phone] documented as of this encounter
--- OUTSIDE RECORDS SUMMARY | 2021-12-14 00:26 | XMS_ITS | Encounter Summary ---
:1950 Author Organization [facility] Address [address] [place] [address] Care Team Providers Name Role Phone Katia Stone PA-C Primary Care Provider Encounter Details Date Type Department Care Team Description 06/21/2021 Lab Requisition [facility] [place] Price A cute cholecystitis Pathology & DO Laboratory Medicine - [address] [facility] [address] [place] [phone] Social History Tobacco Use Types Packs/Day Years [...] 11:58 EDT) Note to Patient The following [facility] pathology results CENTER have been interpreted LABORATORY [...] CENTER LABORATORY SERVICES Attestation There was significant [facility] MEDICAL Electr onically resident/fellow CENTER signed by Ab hever Raines involvement in the LABORATORY Hallie Orosco on diagnostic evaluation SERVICES 022 at 1043 of this case. By the signature below, the attending physician certifies that they have personally conducted a gross and/or microscopic examination of the described specimens and rendered or confirmed the above diagnosis. Clinical History Cholecystitis [facility] LABORAT[facility] SERVICES Gross Description A. [facility] MEDICAL Received in formalin edy [...] or free-floating within the container. SERVICES Two charter representative sections and the en face cystic duct margin are submitted in A1. GIRISH GOMEZ(ASCP) 06/22/2021 7:58 Resident/Fellow: Chayo Chatman MD [facility]OR[facility] SERVICES Performing Lab [facility] Scanned Images [facility] SERVICES Specimen Tissue - Entire gallbladder (body struct ure) Performing Organization Address City/State/ZIP Code Phon e Number [facility] [address] [place] [address] SERVICES documented in this encounter Visit Diagnoses Diagnosis Acute cholecystitis documented in this encounter Care Teams On Site Soil Evaluator Relationship Specialty Start Date End Date Katia Stone PA-C PCP - General 05/02/[address] [place] [phone] documented as of this encounter
--- OUTSIDE RECORDS SUMMARY | 2021-12-14 00:26 | XMS_ITS | Encounter Summary ---
:1950 Author Organization [facility] Address [address] [place] [address] Care Team Providers Name Role Phone Katia Stone PA-C Primary Care Provider Encounter Details Date Type Department Care Team Description 08/16/2020 Results Only [facility] - Junior Ruiz [facility] Lab [address] [place], [place] [phone] (Wo rk) Social History Tobacco Use [...] LAB Creatinine 0.57 (L) 0.70 - 1.30 [facility] mg/dl CENTER LAB Estimated GFR >60 >60 [facility] Comment: CENTER LAB EGFR UNITS: mL/min/1.73 m 2 CKD-EPI Equation used to calculate. Glucose 86 74 - 106 mg/dl [facility] LAB Calcium 8.0 (L) 8.5 - 10.1 [facility] mg/dl [place] LAB Specimen Performing Organization Address City/State/ZIP Code Phon e Number [facility] [address] [place] [address] (ABNORMAL) COMPLETE BLOOD COUNT (08/16/2020 5:20 EDT) Pathologist Sig nature WBC 5.0 4.0 - 10.5 10 [facility] 3/uL CENTER LAB RBC 2.65 (L) 4.70 - 6.00 10 [facility] 6/uL CENTER LAB Hemoglobin 9.3 (L) 13.5 - 18.0 [facility] g/dL CENTER LAB HCT 27.3 (L) [...] [place] 202 150 - 450 10 [place] [address]/[facility] LAB MPV 10.1 9.2 - 12.0 [facility] LAB Specimen Performing Organization Address City/State/ZIP Code Phon e Number [facility] [address] [place] [address] documented in this encounter Visit Diagnoses Not on filedocumented in this encounter Care Teams Grain Operator Relationship Specialty Start Date End Date Katia Stone PA-C PCP - General 05/02/[address] [place] [phone] documented as of this encounter
--- OUTSIDE RECORDS SUMMARY | 2021-12-14 00:26 | XMS_ITS | Encounter Summary ---
:1950 Author Organization [facility] Address [address] [place] [address] Care Team Providers Name Role Phone Katia Stone PA-C Primary Care Provider Encounter Details Date Type Department Care Team Description 09/05/2020 Results Only [facility] Rowan Abad NP [phone] [place] [phone] (Wo rk) Social History Tobacco Use [...] EDT) WBC 6.4 4.0 - 10.5 10 [facility] 3/uL CENTER LAB RBC 3.40 (L) 4.70 - 6.00 10 [facility] 6/[facility] LAB Hemoglobin 11.6 (L) 13.5 - 18.0 g/dL [facility] LAB HCT 33.9 (L) 42.0 - 52.0 % [facility] LAB MCV 99.7 78 - [address] [facility] LAB MCH 34.1 (H) 27 - [address] [facility] LAB MCHC 34.2 32 - 37 g/dL [facility] LAB RDW-CV - PMC 13.1 <14.7 % [facility] LAB PLATELET COUNT - 253 150 - 450 10 3/uL [facility] LAB MPV 10.9 9.2 - 12.[address] [facility] LAB NEUTROPHILS % 57.6 % [facility] (AUTO) - [facility] CENTER LAB LYMPHOCYTES % 25.0 % [facility] (AUTO) [facility] LAB MONOCYTES % (AUTO) 13.3 % [facility] LAB EOSINOPHILS % 2.7 NOT ESTABLISHED % [facility] (AUTO) [facility] LAB BASOPHILS % (AUTO) 1.1 % [facility] LAB Immature 0.3 % [facility] Granulocyte % CENTER LAB (Auto) NUCLEATED RBC % 0.0 % [facility] (AUTO) - [facility] LAB NEUTROPHILS # 3.7 1.5 - 6.6 10 3/uL [facility] (AUTO) - [facility] LAB LYMPHOCYTES # 1.6 1.0 - 3.5 10 3/uL [facility] (AUTO) - [facility] LAB MONOCYTES # (AUTO) 0.9 <1.0 10 3/uL [facility] LAB EOSINOPHILS # 0.2 <0.7 10 3/uL [facility] (AUTO) - [facility] LAB BASOPHILS # (AUTO) 0.1 <0.1 10 3/uL [facility] LAB Absolute Immature 0.02 <0.06 10 3/uL [facility] Granulocyte [facility] DIFFERENTIAL Auto Differential [facility] LAB Specimen Performing Organization Address [facility] LAB [address] [place] [address] MAGNESIUM (09/05/2020 14:30 EDT) Pathologist Sig nature Magnesium 1.8 1.8 - 2.4 mg/dl [facility] LAB Specimen Performing Organization Address [facility] LAB [address] [place] [address] (ABNORMAL) BASIC METABOLIC PANEL (BMP) (09/05/2020 14:30 EDT) Sodium 132 (L) 136 - 145 mEq/L [facility] LAB Potassium 4.3 3.5 - 5.1 mEq/L [facility] LAB Chloride 99 96 - 107 mEq/L [facility] LAB CO2 Total 26.5 21 - 32 mEq/L [facility] LAB Anion Gap 6.5 mEq/L [facility] LAB BUN 12 7 - 25 mg/dl [facility] LAB Creatinine 0.60 (L) 0.70 - 1.30 [facility] mg/dl [facility] [facility] Estimated GFR >60 >60 [facility] Comment: CENTER LAB EGFR UNITS: mL/min/1.73 m 2 CKD-EPI Equation used to calculate. Glucose 100 74 - 106 mg/dl [facility] LAB Calcium 8.6 8.5 - 10.1 [facility] mg/dl [facility] Specimen Performing Organization Address [facility] LAB [address] [place] [address] documented in this encounter Visit Diagnoses Not on filedocumented in this encounter Care Teams International First Officer Relationship Specialty Start Date End Date Katia Stone PA-C PCP - General 05/02/[address] [place] [phone] documented as of this encounter
--- OUTSIDE RECORDS SUMMARY | 2021-12-14 00:26 | XMS_ITS | Encounter Summary ---
:1950 Author Organization [facility] Address [address] [place] [address] Care Team Providers Name Role Phone Katia Stone PA-C Primary Care Provider Encounter Details Date Type Department Care Team Description 09/06/2020 Results Only [facility] Rowan Abad NP [phone] [place] [phone] (Wo rk) Social History Tobacco Use [...] EDT) Pathologist Sig nature PLATELET COUNT - [facility] 236 150 - 450 10 [facility] 3/uL CENTER LAB Specimen Narrative [facility] - 09/06/2020 5 :58 EDT Comment ENOXAPARIN MONITORING Performing Organization Address City/[facility] Code Phon e Number [facility] [address] [place] [address] (ABNORMAL) CREATININE WITH GFR - PMC (09/06/2020 5:05 EDT) Creatinine 0.60 (L) 0.70 - 1.30 [facility] mg/dl CENTER LAB Estimated GFR >60 >60 [facility] Comment: CENTER LAB EGFR UNITS: mL/min/1.73 m 2 CKD-EPI Equation used to calculate. Specimen Performing Organization Address [facility] e Number [facility] [address] [place] [address] documented in this encounter Visit Diagnoses Not on filedocumented in this encounter Care Teams Angle Shearer Relationship Specialty Start Date End Date Katia Stone PA-C PCP - General 05/02/[address] [place] [phone] documented as of this encounter
--- OUTSIDE RECORDS SUMMARY | 2021-12-14 00:26 | XMS_ITS | Encounter Summary ---
:1950 Author Organization [facility] Address [address] [place] [address] Care Team Providers Name Role Phone Katia Stone PA-C Primary Care Provider Encounter Details Date Type Department Care Team Description 09/02/2020 Results Only [facility] Rowan Abad NP [phone] [place] [phone] (Wo rk) Social History Tobacco Use [...] EDT) Creatinine 0.61 (L) 0.70 - 1.30 [facility] mg/dl CENTER LAB Estimated GFR >60 >60 [facility] Comment: CENTER LAB EGFR UNITS: mL/min/1.73 m 2 CKD-EPI Equation used to calculate. Specimen Performing Organization Address City/[facility] Phon e Number [facility] [address] [place] [address] PLATELET COUNT (09/02/2020 6:18 EDT) Pathologist Sig nature PLATELET COUNT - [facility] 247 150 - 450 10 [facility] 3/uL CENTER LAB Specimen Narrative [facility] - 09/02/2020 7 :06 EDT Comment ENOXAPARIN MONITORING Performing Organization Address City/[facility] Phon e Number [facility] [address] [place] [address] documented in this encounter Visit Diagnoses Not on filedocumented in this encounter Care Teams Sr Risk Management Consultant Relationship Specialty Start Date End Date Katia Stone PA-C PCP - General 05/02/[address] [place] [phone] documented as of this encounter
--- OUTSIDE RECORDS SUMMARY | 2021-12-14 00:26 | XMS_ITS | Encounter Summary ---
:1950 Author Organization [facility] Address [address] [place] [address] Care Team Providers Name Role Phone Katia Stone PA-C Primary Care Provider Encounter Details Date Type Department Care Team Description 06/23/2021 Lab Requisition [facility] Outr Resulting Lab, Pathology & Laboratory Provider [facility] [address] [place] [address] Social History Tobacco Use Types [...] Sig nature Osmolality, Urine 509 150-1,150 mOsm/kg [facility] SERVICES Specimen Urine - Urine specimen collection, clean catch (procedure) Performing Organization Address City/State/ZIP Code Phon e Number [facility] [address] [place] [address] SERVICES documented in this encounter Visit Diagnoses Not on filedocumented in this encounter Care Teams Material Handler Relationship Specialty Start Date End Date Katia Stone, PABijalC PCP - General 05/02/17 [address] [place] [phone] documented as of this encounter
--- OUTSIDE RECORDS SUMMARY | 2021-12-14 00:26 | XMS_ITS | Encounter Summary ---
:1950 Author Organization [facility] Address [address] [place] [address] Care Team Providers Name Role Phone Katia Stone PA-C Primary Care Provider Encounter Details Date Type Department Care Team Description 08/20/[address] [facility] - Junior Ruiz [facility] Lab [address] [place], [place] [phone] (Wo rk) Social History Tobacco Use [...] Magnesium 1.6 (L) 1.8 - 2.4 mg/dl [facility] Specimen Performing Organization Address [facility] Phon e Number [facility] [address] [place] [address] (ABNORMAL) BASIC METABOLIC PANEL (BMP) (08/20/2020 6:50 EDT) Sodium 134 (L) 136 - 145 mEq/L [facility] Potassium 3.6 3.5 - 5.1 mEq/L [facility] LAB Chloride 100 96 - 107 mEq/L [facility] LAB CO2 Total 28.7 21 - 32 mEq/L [facility] LAB Anion Gap 5.3 mEq/L [facility] LAB BUN 7 7 - 25 mg/dl [facility] LAB Creatinine 0.48 (L) 0.70 - 1.30 [facility] mg/dl CENTER LAB Estimated GFR >60 >60 [facility] Comment: CENTER LAB EGFR UNITS: mL/min/1.73 m 2 CKD-EPI Equation used to calculate. Glucose 91 74 - 106 mg/dl [facility] LAB Calcium 8.3 (L) 8.5 - 10.1 [facility] mg/dl CENTER LAB Specimen Performing Organization Address [facility] Code Phon e Number [facility] [address] [place] [address] (ABNORMAL) COMPLETE BLOOD COUNT (08/20/2020 6:50 EDT) Pathologist Sig nature WBC 5.8 4.0 - 10.5 10 [facility] 3/[facility] LAB RBC 2.96 (L) 4.70 - 6.00 10 [facility] 6/[facility] LAB Hemoglobin 10.5 (L) 13.5 - 18.0 [facility] g/dL CENTER LAB HCT 29.8 (L) 42.0 - 52.0 % [facility] LAB MCV 100.7 (H) 78 - 100 fL [facility] LAB MCH 35.5 (H) 27 - 31 pg [facility] LAB MCHC 35.2 32 - 37 g/dL [facility] LAB RDW-CV - PMC 14.7 <14.7 % [facility] LAB PLATELET COUNT - [facility] 253 150 - [address] LAB MPV 10.1 9.2 - 12.0 fL [facility] LAB Specimen Performing Organization Address City/State/ZIP Code Phon e Number [facility] [address] [place] [address] documented in this encounter Visit Diagnoses Not on filedocumented in this encounter Care Teams Skate Boarder Relationship Specialty Start Date End Date Katia Stone PA-C PCP - General 05/02/[address] [facility] [place] [phone] documented as of this encounter
--- OUTSIDE RECORDS SUMMARY | 2021-12-14 00:27 | XMS_ITS | Encounter Summary ---
:1950 Author Organization [facility] Address [address] [place] [address] Care Team Providers Name Role Phone Katia Stone PA-C Primary Care Provider Encounter Details Date Type Department Care Team Description 08/13/2020 Lab Requisition [facility] Outr Resulting Lab, Pathology & Laboratory Provider [facility] [address] [place] [address] Social History Tobacco Use Types [...] Pathologist Sig nature Salmonella PCR Negative Negative [facility] Shigella/Enteroinvasive Negative Negative [facility] HN LAB CAMPYLOBACTER PCR Negative Negative [facility] ER LABORATORY SERVICES Shiga Toxin PCR Negative Negative [facility] Specimen Feces - Specimen from rectum (specimen) Performing Organization Address City/State/ZIP Code Phon e Number [facility] [address] [place] [address] SERVICES documented in this encounter Visit Diagnoses Not on filedocumented in this encounter Care Teams Flower Shop Laborer/Designer Relationship Specialty Start Date End Date Katia Stone PA-C PCP - General 05/02/[address] [place] [phone] documented as of this encounter
--- OUTSIDE RECORDS SUMMARY | 2021-12-14 00:27 | XMS_ITS | Encounter Summary ---
:1950 Author Organization [facility] Address [address] [place] [address] Care Team Providers Name Role Phone Katia Stone PA-C Primary Care Provider Encounter Details Date Type Department Care Team Description 01/15/2020 Results Only [facility] - [address], Provider, [place] [facility] [address] [place], [place] [id number] Social History Tobacco Use Types Packs/Day Years [...] Sodium 124 (L) 136 - 145 mEq/L [facility] Specimen Performing Organization Address City/State/ZIP Code Phon e Number [facility] [address] [place] [address] documented in this encounter Visit Diagnoses Not on filedocumented in this encounter Care Teams Gin Feeder Relationship Specialty Start Date End Date Katia Stone PA-C PCP - General 05/02/[address] [place] [phone] documented as of this encounter
--- OUTSIDE RECORDS SUMMARY | 2021-12-14 00:27 | XMS_ITS | Encounter Summary ---
:1950 Author Organization [facility] Address [address] [place] [address] Care Team Providers Name Role Phone Katia Stone PA-C Primary Care Provider Reason for Visit Reason Onset Date Comments Appointment Related 02/07/2020 PA REQUEST Encounter Details Date Type Department Care Team Description 02/07/2020 Telephone [facility] - Shelley Reinoso MD Appointment Related ([facility] [address] REQUEST) Cardiology Clinic [place], [place] [address] [facility] [phone] [place], [place] [address] Social History Tobacco Use Types Packs/Day Years [...] - 02/07/2020 1327 EST PA REQUEST ECHOCARDIOGRAM [id number] 02/29/20 DYSPNEA (R06.0) VITA LIVE THANK YOU! documented in this encounter Plan of Treatment Not on filedocumented as of this encounter Visit Diagnoses Not on filedocumented in this encounter Care Teams Business Administration Program Chair Relationship Specialty Start Date End Date Katia Stone, PABijalC PCP - General 05/02/[address] [place] [phone] documented as of this encounter
--- OUTSIDE RECORDS SUMMARY | 2021-12-14 00:27 | XMS_ITS | Encounter Summary ---
:1950 Author Organization [facility] Address [address] [place] [address] Care Team Providers Name Role Phone Katia Stone PA-C Primary Care Provider Encounter Details Date Type Department Care Team Description 08/14/[address] [facility], [facility] [address] [place] [address] [place], [place] [phone] (Wo rk) Social History Tobacco Use [...] Magnesium 1.6 (L) 1.8 - 2.4 mg/dl [facility] Specimen Performing Organization Address City/State/ZIP Code Phon e Number [facility] [address] [place] [address] (ABNORMAL) COMPREHENSIVE METABOLIC PANEL (CMP) (08/14/2020 5:03 EDT) Sodium 138 136 - 145 [facility] mEq/L [facility] Potassium 3.6 3.5 - 5.1 [facility] mEq/L [facility] Chloride 103 96 - 107 [facility] mEq/L [facility] CO2 Total 28.4 21 - 32 mEq/L [facility] Anion Gap 6.6 mEq/L [facility] BUN 11 7 - 25 mg/dl [facility] Creatinine 0.51 (L) 0.70 - 1.30 [facility] mg/dl [facility] Estimated GFR >60 >60 [facility] Comment: [facility] EGFR UNITS: mL/min/1.73 m 2 CKD-EPI Equation used to calculate. Glucose 101 74 - 106 [facility] mg/dl [facility] Calcium 8.1 (L) 8.5 - 10.1 [facility] mg/dl [facility] CALCIUM,CORRECTED - 9.5 8.5 - 10.5 [facility] mg/dl [facility] BILIRUBIN - PMC 0.40 0.00 - 1.00 [facility] mg/dl [facility] AST 34 15 - 37 U/L [facility] ALT 21 16 - 63 U/L [facility] Alkaline Phosphatase 102 46 - 116 U/L [facility] Total Protein 6.3 (L) 6.4 - 8.2 [facility] g/dl [facility] Albumin 2.2 (L) 3.4 - 5.0 [facility] g/dl [facility] GLOBULIN - [facility] 4.1 g/dl [facility] ALBUMIN/GLOBULIN 0.5 [facility] RATIO [facility] Specimen Performing Organization Address City/State/ZIP Code Phon e Number [facility] [address] [place] [address] (ABNORMAL) COMPLETE BLOOD COUNT AND DIFFERENTIAL (08/14/2020 5:03 EDT) WBC 5.1 4.0 - 10.5 10 [facility] 3/uL [facility] RBC 2.76 (L) 4.70 - 6.00 10 [facility] 6/uL [facility] Hemoglobin 9.9 (L) 13.5 - 18.0 g/dL [facility] HCT 28.7 (L) 42.0 - 52.0 % [facility] MCV 104.0 (H) 78 - [address] [facility] MCH 35.9 (H) 27 - [address] [facility] MCHC 34.5 32 - 37 g/dL [facility] RDW-CV - PMC 15.9 (H) <14.7 % [facility] PLATELET COUNT - 189 150 - 450 10 3/uL [facility] MPV 10.8 9.2 - 12.[address] [facility] NEUTROPHILS % 54.7 % [facility] (AUTO) [facility] LYMPHOCYTES % 23.0 % [facility] (AUTO) [facility] MONOCYTES % (AUTO) 18.2 % [facility] EOSINOPHILS % 2.5 NOT ESTABLISHED % [facility] (AUTO) [facility] BASOPHILS % (AUTO) 0.8 % [facility] Immature 0.8 % [facility] Granulocyte % [facility] (Auto) NUCLEATED RBC % 0.0 % [facility] (AUTO) - PMC [facility] NEUTROPHILS # 2.8 1.5 - 6.6 10 3/uL [facility] (AUTO) - [facility] LYMPHOCYTES # 1.2 1.0 - 3.5 10 3/uL [facility] (AUTO) - [facility] MONOCYTES # (AUTO) 0.9 <1.0 10 3/uL [facility] - [facility] EOSINOPHILS # 0.1 <0.7 10 3/uL [facility] (AUTO) - [facility] Absolute Immature 0.04 <0.06 10 3/uL [facility] Granulocyte [facility] DIFFERENTIAL Auto Differential [facility] METHOD [facility] Specimen Narrative [facility] - 08/14/2020 6 :11 EDT Comment ENOXAPARIN MONITORING Performing Organization Address City/State/ZIP Code Phon e Number [facility] [address] [place] [address] documented in this encounter Visit Diagnoses Not on filedocumented in this encounter Care Teams Sports Announcer Relationship Specialty Start Date End Date Katia Stone, BELLAC PCP - General 05/02/17 [address] [place] [phone] documented as of this encounter
--- OUTSIDE RECORDS SUMMARY | 2021-12-14 00:27 | XMS_ITS | Encounter Summary ---
:1950 Author Organization [facility] Address [address] [place] [address] Care Team Providers Name Role Phone Katia Stone PA-C Primary Care Provider Encounter Details Date Type Department Care Team Description 01/14/2020 Results Only [facility]- Jayesh Baldwin, [address] [place] [phone] (Wo rk) Social History Tobacco Use [...] Sodium 124 (L) 136 - 145 mEq/L [facility] Specimen Performing Organization Address [facility] Phon [facility] [address] [place] [address] (ABNORMAL) SODIUM (01/14/2020 14:55 EST) Pathologist Sig nature Sodium 125 (L) 136 - 145 mEq/L [facility] Specimen Performing Organization Address [facility] [address] [place] [address] (ABNORMAL) COMPLETE BLOOD COUNT (01/14/2020 5:30 EST) Pathologist Sig nature WBC 5.2 4.0 - 10.5 10 [facility] 3[facility] RBC 3.29 (L) 4.70 - 6.00 10 [facility] 6/[facility] LAB Hemoglobin 11.5 (L) 13.5 - 18.0 [facility] g/dL [facility] HCT 31.5 (L) 42.0 - 52.0 % [facility] MCV 95.7 78 - 100 fL [facility] MCH 35.0 (H) 27 - 31 pg [facility] MCHC 36.5 (H) 32 - 36 g/dL [facility] RDW-CV - PMC 13.1 11.0 - 14.8 % [facility] PLATELET COUNT - [facility] 156 150 - [address] LAB Specimen Narrative [facility] - 01/14/2020 6 :37 EST [...] Standards H3-A5, page 21) Performing Organization Address [facility] [[email or web address]] Code Phon e Number [facility] [address] [place] [address] MAGNESIUM (01/14/2020 5:30 EST) Pathologist Sig nature Magnesium 2.0 1.8 - 2.4 mg/dl [facility] Specimen Narrative [facility] - 01/14/2020 6 :33 EST [...] Standards H3-A5, page 21) Performing Organization Address [facility] e Number [facility] [address] [place] [address] (ABNORMAL) BASIC METABOLIC PANEL,RANDOM - PMC (01/14/2020 5:30 EST) Sodium 122 (L) 136 - 145 mEq/L [facility] Potassium 4.0 3.5 - 5.1 mEq/L [facility] Chloride 89 (L) 96 - 107 mEq/L [facility] CO2 Total 28.1 21 - 32 mEq/L [facility] Anion Gap 5.9 mEq/L [facility] BUN 11 7 - 25 mg/dl [facility] Creatinine 0.71 0.70 - 1.30 [facility] mg/dl [facility] Estimated GFR >60 >60 [facility] Comment: [facility] EGFR UNITS: mL/min/1.73 m 2 CKD-EPI Equation used to calculate. Glucose 101 70 - 180 mg/dl [facility] Calcium 8.2 (L) 8.5 - 10.1 [facility] mg/dl [facility] Specimen Narrative [facility] - 01/14/2020 6 :33 EST [...] Number [facility] [address] [place] [address] documented in this encounter Visit Diagnoses Not on filedocumented in this encounter Care Teams Zipper Joiner Relationship Specialty Start Date End Date Katia Stone PA-C PCP - General 05/02/[address] [place] [phone] documented as of this encounter
--- OUTSIDE RECORDS SUMMARY | 2021-12-14 00:27 | XMS_ITS | Encounter Summary ---
:1950 Author Organization [facility] Address [address] [place] [address] Care Team Providers Name Role Phone Katia Stone PA-C Primary Care Provider Encounter Details Date Type Department Care Team Description 08/08/2020 Results Only Imaging [facility] - Justin Christy [facility] MD Hallie Radiology Results [address] [place] [phone] (Wo rk) Social History Tobacco Use Types [...] 2 VIEWS (08/08/2020 15:36 EDT) Specimen Narrative [facility] - 2020 15:36 EDT ?[facility]: [facility] ?[address] ?[place] [address] ?Diagnostic Imaging Report ? Signed ? Patient Name:DAVID FARFAN ? Date of :1950 ?MR Number:[id number] ? Age:69 ?Sex:M ? Category: CR ?Date [...] this report , please contact the [facility] Operations Center at [phone] ? Dictated by: Temo Son MD ?D/ 15 ?? 36 ?? Transcribed by: SSCOURTNEY ?D/T: ? E-Signed by: Temo Son MD ?D/ 19 ?? 38 ?? Procedure Note Temo Son MD - 08/08/2020 [facility] [address] [address] Diagnostic Imaging Report Signed Patient Name:DAVID FARFAN r:[id number] Date of :1950 MR Number:[id number] Age:69 Sex:M Category: CR Date of Exam:08/08/20 [...] this report , please contact the [facility] Operations Center at [phone] Dictated by: Temo Son MD D/T: 08/08 15 36 Transcribed by: DEBRA D/T: E-Signed by: Temo Son MD D/T: 08/08 19 38 Performing Organization Address City/State/ZIP Code Phon e Number [facility] CT ABDOMEN PELVIS W CONTRAST (08/08/2020 15:36 EDT) Specimen Narrative [facility] - 2020 15:36 EDT ?[facility]: [facility] ?[address] ?[place], [place] [address] ?Diagnostic Imaging Report ? Signed ? Patient Name:ADOLPH,DAVID F ? Date of :1950 ?MR Number:[id number] ? Age:69 ?Sex:M ? Category: CT ?Date [...] regarding this report , [facility] at [phone] ? Dictated by: Temo Son MD ?D/ 15 ?? 36 ?? Transcribed by: DEBRA ?D/T: ? E-Signed by: Temo Son MD ?D/ 19 ?? 36 ?? Procedure Note Temo Son MD - 08/08/2020 [facility] [place] [id number] Diagnostic Imaging Report Signed Patient Name:DAVID FARFAN r:[id number] Date of :1950 MR Number:[id number] Age:69 Sex:M Category: CT Date of Exam:08/08/20 Procedure: CT: Abd Pelvis; wit cntrst A ccession: [id number] Ordering Physician: Tony Christy MD Patient [...] regarding this report , please contact the [facility] Operations Center at [phone] Dictated by: Temo Son MD D/T: 08/08 15 36 Transcribed by: DEBRA D/T: E-Signed by: Temo Son MD D/T: 08/08 19 36 Performing Organization Address City/State/ZIP Code Phon e Number [facility] documented in this encounter Visit Diagnoses Not on filedocumented in this encounter Care Teams Electric Fork Operator Relationship Specialty Start Date End Date Katia Stone PA-C PCP - General 05/02/17 [address] [place] [phone] documented as of this encounter
--- OUTSIDE RECORDS SUMMARY | 2021-12-14 00:27 | XMS_ITS | Encounter Summary ---
:[address] [facility] Address [address] [place] [address] Care Team Providers Name Role Phone Katia Stone PA-C Primary Care Provider Reason for Visit Reason Comments Pacemaker Problem Encounter Details Date Type Department Care Team Description 04/12/2020 Office Visit [facility] Tony Rosenberg Heart b [facility] Cardiology - Nicolasa Jasmine MD degree ([facility] [address] (Primary Dx) [place] [address] [address] [place] [address] Social History Tobacco Use Types [...] Rosenberg MD - 04/12/2020 1216 EST [facility] CARDIOLOG[facility] - DE KALB PROGRESS / FOLLOWUP NOTE - 04/12/2020 PROBLEM LIST 1. Third-degree heart block, status post dual chamber pacemaker insertion, complicated by pericardial effusion and need for 12-lead repositioning. 2. Hyponatremia. 3. RA lead failure. SUBJECTIVE: Mr Mera returns to the clinic at [facility] to discuss the issuessurrounding his pacemaker. [...] had 2 recent hospitalizations, one at [facility] and the other at [facility] for treatment of hyponatremia. PHYSICAL EXAMINATION: [...] Tony Rosenberg MD / CD Dictation ID: [id number] cc: documented in this encounter Plan of Treatment Not on filedocumented as of this encounter Visit Diagnoses Diagnosis Heart block AV third degree (HCC-CMS) (H CC) - Primary Atrioventricular block, complete documented in this encounter Care Teams Corporate Controller Relationship Specialty Start Date End Date Katia Stone PA-C PCP - General 05/02/17 [address] [place] [phone] documented as of this encounter
--- OUTSIDE RECORDS SUMMARY | 2021-12-14 00:27 | XMS_ITS | Encounter Summary ---
:1950 Author Organization [facility] Address [address] [place] [address] Care Team Providers Name Role Phone Katia Stone PA-C Primary Care Provider Encounter Details Date Type Department Care Team Description 08/08/2020 Results Only [facility] - Renetta Isaac, [facility] Lab MD [address] [place] [address] [place], [place] [phone] (Wo rk) Social History Tobacco Use [...] EDT) WBC 7.6 4.0 - 10.5 10 [facility] 3/[facility] LAB RBC 3.15 (L) 4.70 - 6.00 [place] [address] 6/uL [facility] Hemoglobin 11.3 (L) 13.5 - 18.0 [facility] g/dL [facility] HCT 31.4 (L) 42.0 - 52.0 % [facility] MCV 99.7 78 - 100 fL [facility] MCH 35.9 (H) 27 - 31 pg [facility] MCHC 36.0 32 - 37 g/dL [facility] RDW-CV - PMC 13.8 <14.7 % [facility] PLATELET COUNT - PMC 199 150 - 450 10 [facility] 3/uL [facility] MPV 11.2 9.2 - 12.0 fL [facility] NEUTROPHILS % (AUTO) 81.3 % [facility] LYMPHOCYTES % (AUTO) 8.6 % [facility] MONOCYTES % (AUTO) - 9.5 % [facility] EOSINOPHILS % (AUTO) 0.0 % [facility] BASOPHILS % (AUTO) - 0.1 % [facility] Immature Granulocyte 0.5 % [facility] % (Auto) [facility] NUCLEATED RBC % 0.0 % [facility] (AUTO) [facility] NEUTROPHILS # (AUTO) 6.1 1.5 - 6.6 10 [facility] 3/uL [facility] LYMPHOCYTES # (AUTO) 0.7 (L) 1.0 - 3.5 10 [facility] 3/uL [facility] MONOCYTES # (AUTO) - 0.7 <1.0 10 3/uL [facility] EOSINOPHILS # (AUTO) 0.0 <0.7 10 3/uL [facility] Absolute Immature 0.04 <0.06 10 3/uL [facility] Granulocyte [facility] DIFFERENTIAL METHOD Auto Differential [facility] Specimen Performing Organization Address [facility]/State/ZIP Code Phon e Number [facility] [address] [place] [address] CORONAVIRUS COVID-19 PCR ([facility]) (08/08/2020 17:07 EDT) Specimen Narrative [facility] - 08/08/2020 1 8:36 EDT ?? RUN DATE: 08/08/20 ? [facility] *LIVE* ? PAGE 1 ? RUN TIME: 1837 ?Specimen Inquiry ? PATIENT: ADOLPHDAVID ? ACCT: [id number] LOC: ??ED ? U: [id number] ? AGE/SX: 69/M ? ROOM: ?RE08/08/20 ?? REG DR: ??Tony Christy MD ?: ?1950 ?? BED: ? DIS: ? STATUS: REG ER ? TLOC: ? SPEC #: [id number] ?ALEX: -1706 ? STATUS: ??COMP ? REQ #: [id number] ?RECD: 08/08/20 ? SUBM DR: Tony Christy [...] This test ?has been authorized by the [facility] under a EUA for use by ?authorized [...] terminated or revoked sooner. ?Testing performed on [employer] instrument ? END OF REPORT ? Performing Organization Address [facility] [address] [place] [address] (ABNORMAL) BNP - PMC (08/08/2020 16:47 EDT) [facility] B-TYPE NATRIURETIC 398 (H) <100 pg/mL [facility] PEPTIDE - [facility] LAB Specimen Performing Organization Address [facility] Phon [facility] [address] [place] [address] TROPONIN I (08/08/2020 16:47 EDT) [facility] Troponin I <0.050 0 - 0.056 [facility] (ng/mL) Comment: ng/ml [facility] Interpretation: [...] Biotin. Specimen Performing Organization Address [facility] Phon [facility] [address] [place] [address] (ABNORMAL) COMPREHENSIVE METABOLIC PANEL (CMP) (08/08/2020 16:47 EDT) [facility] Sodium 125 (L) 136 - 145 [facility] mEq/L [facility] Potassium 2.9 (L) 3.5 - 5.1 [facility] mEq/L [facility] Chloride 85 (L) 96 - 107 [facility] mEq/L [facility] CO2 Total 26.2 21 - 32 mEq/L [facility] Anion Gap 13.8 mEq/L [facility] BUN 8 7 - 25 mg/dl [facility] Creatinine 0.67 (L) 0.70 - 1.30 [facility] mg/dl [facility] Estimated GFR >60 >60 [facility] Comment: [facility] EGFR UNITS: mL/min/1.73 m 2 CKD-EPI Equation used to calculate. Glucose 101 74 - 106 [facility] mg/dl [facility] Calcium 8.5 8.5 - 10.1 [facility] mg/dl [facility] CALCIUM,CORRECTED - 9.3 8.5 - 10.5 [facility] mg/dl [facility] BILIRUBIN - PMC 1.60 (H) 0.00 - 1.00 [facility] mg/dl [facility] AST 90 (H) 15 - 37 U/L [facility] ALT 62 16 - 63 U/L [facility] Alkaline Phosphatase 133 (H) 46 - 116 U/L [facility] Total Protein 7.6 6.4 - 8.2 [facility] g/dl [facility] Albumin 3.0 (L) 3.4 - 5.0 [facility] g/dl [facility] GLOBULIN - PMC 4.6 g/dl [facility] ALBUMIN/GLOBULIN 0.6 [facility] RATIO - PMC [facility] Specimen Performing Organization Address City/State/ZIP Code Phon e Number [facility] [address] [place] [address] (ABNORMAL) COMPLETE BLOOD COUNT AND DIFFERENTIAL (08/08/2020 16:47 EDT) WBC 7.3 4.0 - 10.5 10 [facility] 3/uL [facility] RBC 3.32 (L) 4.70 - 6.00 [facility] 10 6/uL [facility] Hemoglobin 11.8 (L) 13.5 - 18.0 [facility] g/dL [facility] HCT 32.9 (L) 42.0 - 52.0 % [facility] MCV 99.1 78 - 100 fL [facility] MCH 35.5 (H) 27 - 31 pg [facility] MCHC 35.9 32 - 37 g/dL [facility] RDW-CV - [facility] 13.7 <14.7 % [facility] PLATELET COUNT - [facility] 209 150 - 450 10 [facility] 3/[facility] LAB MPV 11.4 9.2 - 12.0 fL [facility] NEUTROPHILS % (AUTO) 81.9 % [facility] LYMPHOCYTES % (AUTO) 9.1 % [facility] MONOCYTES % (AUTO) - 8.3 % [facility] EOSINOPHILS % (AUTO) 0.0 % [facility] BASOPHILS % (AUTO) - 0.1 % [facility] Immature Granulocyte 0.6 % [facility] % (Auto) [facility] NUCLEATED RBC % 0.0 % [facility] (AUTO) [facility] LAB NEUTROPHILS # (AUTO) 5.9 1.5 - 6.6 10 [facility] 3/[facility] LAB LYMPHOCYTES # (AUTO) 0.7 (L) 1.0 - 3.[address] LAB MONOCYTES # (AUTO) - 0.6 <1.0 10 3[facility] LAB EOSINOPHILS # (AUTO) 0.0 <0.7 10 3/[facility] LAB Absolute Immature 0.04 <0.06 10 3/[facility] LAB DIFFERENTIAL METHOD Auto Differential [facility] Specimen Performing Organization Address City/State/ZIP Code Phon e Number [facility] [address] [place] [address] documented in this encounter Visit Diagnoses Not on filedocumented in this encounter Care Teams Pipeliner Relationship Specialty Start Date End Date Katia Stone, PABijalC PCP - General 05/02/17 [address] [place], [place] [phone] documented as of this encounter
--- OUTSIDE RECORDS SUMMARY | 2021-12-14 00:27 | XMS_ITS | Encounter Summary ---
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, initial encounter José Miguel Roca PA-C Procedures XR CHEST 2 VIEWS [address] [phone] Referral ID Status Reason Start Expiration Visits Visits Date Date Requested Authorized [id number] Authorization Not 05/16/2020 1 1 Required Reason for Visit Reason Comments New Patient Visit consult Advice Only PLEASE WEAR ADITTIONAL EYE S HIElDS WHEN IN ROOM,, PT UNABLE TO WEAR A MASK Consult, Test and Treat (Routine) - Authorization Not Required Specialty Diagnoses / Procedures Referred By Contact Refer red To Contact Cardiothoracic Surgery Diagnoses Pacemaker lead malfunction Tony Rosenberg Marek, MD [place], MD [address] [facility] [address] [phone] Fax: Referral ID Status Reason Start Expiration Visits Visits Date Date Requested Authorized [id number] Authorization Not 1 1 Required Encounter Details Date Type Department Care Team Description 05/16/2020 Office Visit [facility] Center Ja Browne Displ acement of Cardiothoracic Surgery electrode lead of - [facility] [address] [facility] cardiac pacemaker, 111 [facility] [place] [address] Pavilion, Level 5 (Primary Dx) [phone] [place] [id number] Social History Tobacco Use Types Packs/Day Years [...] the Division of Cardiothoracic Surgery at the [facility]. We look forward to making your stay a safe, comfortable and pleasant experience. ??? Your surgery is scheduled on: To Be Announced ??? Please plan to arrive at: To Be Announced ??? When you arrive you should report to Registration on Level 3 (street level), located near the Main Entrance of the [facility] at the [facility]. Due to COVID, there is [...] of this appointmentplease contact our office at [phone]. We have included a local lodging list should you or your family require accommodations around the time of your surgery. Discounts may apply for family members of patients being hospitalized, please askthe hotel when booking. If you have cancer, you and your family member are eligible to stay at the [employer] [place]. The Oncology Patient Navigator can be reached at [phone] for assistance with this. You should receive [...] days prior to your surgery. Stop Saw [place] 14 days prior to surgery. ??? Acetaminophen [...] IF THIS CHANGES, CALL OUR OFFICE AT [phone]. Continue to take all of your other [...] helpful. ??? Do not wear any nail nigerian, makeup, powder, lotion, deodorant or jewelry of [...] them with an appointment contact them at [phone] as the test MUST BE DONE 72 [...] to the Surgeon's office on Level [address] [facility] office. Note: If for some [...] listed below. The Division of Cardiothoracic Surgery [address] [place] [address] (Toll Free) MD Geovanni Toure MD Marek [...] file Gets together: Not on file Attends buddhist service: Not on file Active member of [...] Thank you. Ja Browne MD Cardiothoracic Surgery [phone] (office) 05/16/2020 10:36 documented in this encounter Miscellaneous Notes Addendum Note - Ja Browne MD - 05/16/2020 0930 EDT Addended by: JA BROWNE on: 06/06/2020 11:27 Modules accepted: Orders documented in this encounter Plan of Treatment Not on filedocumented as of this encounter Results XR CHEST 2 VIEWS (05/16/2020 11:17 EDT) Anatomical Region Laterality Modality Computed Radiography Specimen Impressions [facility] - 05/16/2020 11:56 EDT 1. ??No significant change from prior. I have personally reviewed the images an d the above interpretation and agree with the findings. Narrative [facility] - 05/16/2020 11:56 EDT XR CHEST [...] e Number [facility] documented in this encounter [...] daily. added in this encounter Care Teams Shoe Repairer Apprentice Relationship Specialty Start Date End Date Katia Stone PA-C PCP - General 05/02/17 [address] [place] [phone] documented as of this encounter
--- OUTSIDE RECORDS SUMMARY | 2021-12-14 00:27 | XMS_ITS | Encounter Summary ---
:1950 Author Organization [facility] Address [address] [place] [address] Care Team Providers Name Role Phone Katia Stone PA-C Primary Care Provider Reason for Visit Reason Onset Date Comments Other 05/16/2020 EKG results Encounter Details Date Type Department Care Team Description 05/16/2020 Telephone [facility] Cat Sutherland RN O[place] r (EKG results) Cardiothoracic Surgery - [address] [address] Social History Tobacco Use Types Packs/Day Years [...] Patient had an EKG in January 2020. [facility] to fax report to [phone]. EKG in Scans from [facility]. I have routed our PA Salvador Roca to see if he wants to repeat on DOSA. documented in this encounter Plan of Treatment Not on filedocumented as of this encounter Visit Diagnoses Not on filedocumented in this encounter Care Teams Petrographer Relationship Specialty Start Date End Date Katia Stone, MINGO PCP - General 05/02/17 [address] [place] [phone] documented as of this encounter
--- OUTSIDE RECORDS SUMMARY | 2021-12-14 00:27 | XMS_ITS | Encounter Summary ---
:1950 Author Organization [facility] Address [address] [place] [address] Care Team Providers Name Role Phone Katia Stone PA-C Primary Care Provider Reason for Visit Reason Onset Date Comments Confirmation 05/08/2020 Encounter Details Date Type Department Care Team Description 05/08/2020 Telephone [facility] Cherie Browne MD Confirmation Cardiothoracic Surgery - [address] [place] [address], [address], [address] [place], [place] [address] [place] [address] [phone] (Wo rk) Social History Tobacco Use [...] 05/08/2020 1128 EST Spoke with Walker higgins Pierce and confirmed patient's appointment with Dr. Browne for 05/16/2020 at 9:30 am. documented in this encounter Plan of Treatment Not on filedocumented as of this encounter Visit Diagnoses Not on filedocumented in this encounter Care Teams Road Freight Firer Relationship Specialty Start Date End Date Katia Stone PABijalC PCP - General 05/02/17 [address] [place] [phone] documented as of this encounter
--- OUTSIDE RECORDS SUMMARY | 2021-12-14 00:27 | XMS_ITS | Encounter Summary ---
:1950 Author Organization [facility] Address [address] [place] [address] Care Team Providers Name Role Phone Katia Stone PA-C Primary Care Provider Reason for Visit Reason Onset Date Comments Appointment Related 06/16/2020 Encounter Details Date Type Department Care Team Description 06/16/2020 Telephone [facility] Ghazala Sutherland RN Appo intment Related Cardiothoracic Surgery - [address] [address] Social History Tobacco Use Types Packs/Day Years [...] Encounter - Ghazala Sutherland RN - 06/16/[address] Surgery Update Message left for pt that the Pre-Op Center will call him on Monday 06/19 between 4 - 4:45 PM. I also left him a message to be sure and connect with his Legal Billing Coordinator at PCP office to get his COVID test 3-4 days prior to surgery. Surgery is on 06/26. GHAZALA SUTHERLAND RN documented in this encounter Plan of Treatment Not on filedocumented as of this encounter Visit Diagnoses Not on filedocumented in this encounter Care Teams Groundskeeper Supervisor Relationship Specialty Start Date End Date Katia Stone, PA-C PCP - General 05/02/17 [address] [place] [phone] documented as of this encounter
--- OUTSIDE RECORDS SUMMARY | 2021-12-14 00:27 | XMS_ITS | Encounter Summary ---
:1950 Author Organization [facility] Address [address] [place] [address] Care Team Providers Name Role Phone Katia Stone PA-C Primary Care Provider Encounter Details Date Type Department Care Team Description 01/14/2020 Results Only [facility] [address] [facility], Provider, [facility] [address] [place], [place] [id number] Social History Tobacco Use Types Packs/Day Years [...] EST) Pro Time 11.2 9.0 - 12.3 [facility] PROTHROMBIN TIME 1.1 0.8 - 1.2 [facility] WITH INR - [facility]C Comment: RATIO [...] PT is prolonged for other reasons. Specimen Narrative [facility] - [...] e Number [facility] [address] [place] [address] (ABNORMAL) SODIUM (01/14/2020 2:07 EST) Pathologist Sig nature Sodium 121 (L) 136 - 145 mEq/L [facility] Specimen [facility] - 01/14/2020 2 :41 EST Sample collected from saline lock with discard per protocol by non-laboratory staff. Performing Organization Address City/State/ZIP Code Phon e Number [facility] [address] [place] [address] documented in this encounter Visit Diagnoses Not on filedocumented in this encounter Care Teams Client Services Vice President Relationship Specialty Start Date End Date Katia Stone PA-C PCP - General 05/02/[address] [place] [phone] documented as of this encounter
--- OUTSIDE RECORDS SUMMARY | 2021-12-14 00:27 | XMS_ITS | Encounter Summary ---
:1950 Author Organization [facility] Address [address] [place] [address] Care Team Providers Name Role Phone Katia Stone PA-C Primary Care Provider Reason for Visit Reason Onset Date Comments Appointment Related 05/04/2020 Encounter Details Date Type Department Care Team Description 05/04/2020 Telephone [facility] Cherie Browne MD Appointment Related Cardiothoracic Surgery - [address] [place] [address], [address], [address] [place], [place] [id number] [place] [address] [phone] (Wo rk) Social History Tobacco Use [...] - 05/10/2020 0953 EST Medical records from [facility] received, scanned and book marked for patient's [...] 05/08/2020, at 10:30 am. Fax out to [facility] and [facility] to request patient's Discharge Summary from recent hospitalization, as well as diagnostic testing, EKG, labs, etc. Await response. documented in this encounter Plan of Treatment Not on filedocumented as of this encounter Visit Diagnoses Not on filedocumented in this encounter Care Teams Dye Penetrant Testing Technician Relationship Specialty Start Date End Date Katia Stone PA-C PCP - General 05/02/17 [address] [place] [phone] documented as of this encounter
--- OUTSIDE RECORDS SUMMARY | 2021-12-14 00:27 | XMS_ITS | Encounter Summary ---
:1950 Author Organization [facility] Address [address] [place] [address] Care Team Providers Name Role Phone Katia Stone PA-C Primary Care Provider Encounter Details Date Type Department Care Team Description 01/13/2020 Results Only [facility] - [address], Provider, [place] [facility] [address] [place], [place] [id number] Social History Tobacco Use Types Packs/Day Years [...] Sodium 120 (L) 136 - 145 mEq/L [facility] Specimen [facility] - 01/13/2020 2 2:26 EST Sample collected by ED but method of collection (IV Start or venipuncture) not indicated on sample. Performing Organization Address [facility] Code Phon e Number [facility] [address] [place] [address] TROPONIN I (01/13/2020 7:15 EST) Troponin I <0.050 0 - 0.056 [facility] (ng/mL) Comment: ng/ml [facility] Interpretation: The [...] due to the consumption of Biotin. Specimen [facility] - 01/13/2020 7 :54 EST Sample [...] Standards H3-A5, page 21) Performing Organization Address [facility] Phon e [facility] [address] [place] [address] (ABNORMAL) SODIUM (01/13/2020 7:15 EST) Pathologist Sig nature Sodium 120 (L) 136 - 145 mEq/L [facility] Specimen [facility] - 01/13/2020 7 :54 EST Sample [...] Standards H3-A5, page 21) Performing Organization Address [facility] e [facility] LAB [address] [place] [address] OSMOLALITY,S PMC TEMP (01/13/2020 5:42 EST) Pathologist [facility] OSMOLALITY,S 280 275 - 295 [facility] Comment: mOsm/kg [facility] Test Performed by: [address] [address] [employer] Supervisor: Pierre Andersen M.D. Ph.D.; CLIA# [id number] Specimen Narrative [facility] - 01/14/2020 1 8:37 EST Sample collected by ED but method of collection (IV Start or venipuncture) not indicated on sample. Performing Organization Address [facility] Phon e Number [facility] [address] [place] [address] FOLATE (01/13/2020 5:42 EST) [facility] Folate 18.7 >8.6 ng/mL [facility] Specimen Performing Organization Address [facility] Phon e Number [facility] [address] [place] [address] VITAMIN B12 (01/13/2020 5:42 EST) [facility] Vitamin B12 246 193 - 986 [facility] Comment: pg/mL [facility] The results of this assay can be falsely elevated due to the consumption of Biotin. Specimen Performing Organization Address [facility] Phon e Number [facility] [address] [place] [address] (ABNORMAL) IRON,TIBC,FERRITIN GROUP - [facility] (01/13/2020 5:42 EST) [facility] nature Iron 178 (H) 65 - 175 mcg/dL [facility] Iron Binding 193 (L) 250 - 450 [facility] Capacity mcg/dL [facility] PERCENT IRON 92 (H) 14 - 50 % [facility] SATURATION - [facility] LAB Ferritin >1000 (H) 26 - 388 ng/mL [facility] Specimen Performing Organization Address [facility] Phon e Number [facility] [address] [place] [address] PROTIME (01/13/2020 5:42 EST) [facility] Pro Time 11.1 9.0 - 12.3 [facility] SEC [facility]ENTER LAB PROTHROMBIN TIME 1.1 0.8 - 1.2 [facility] WITH INR - [facility] Comment: RATIO [facility] Interpretive Information: Moderate [...] PT is prolonged for other reasons. Specimen [facility] - 01/13/2020 6 :48 EST Sample collected by ED but method of collection (IV Start or venipuncture) not indicated on sample. Performing Organization Address [facility] [address] [place] [address] THYROID CASCADE (01/13/2020 5:42 EST) TSH 1.958 0.360 - 3.740 [facility] Comment: mIU/L [facility] Note: This is a Third Generation Assay .......................................... The results of this assay can be falsely decreased due to the consumption of Biotin. Specimen [facility] - 01/13/2020 6 :35 EST Sample collected by ED but method of collection (IV Start or venipuncture) not indicated on sample. Performing Organization Address [facility] [address] [place] [address] (ABNORMAL) MAGNESIUM (01/13/2020 5:42 EST) Pathologist Sig nature Magnesium 1.4 (L) 1.8 - 2.4 mg/dl [facility] Specimen [facility] - 01/13/2020 6 :35 EST Sample collected by ED but method of collection (IV Start or venipuncture) not indicated on sample. Performing Organization Address [facility] [address] [place] [address] (ABNORMAL) HEPATIC & CMP COMBO,FASTING - PMC (01/13/2020 5:42 EST) Sodium 121 (L) 136 - 145 [facility] mEq/L [facility] Potassium 4.1 3.5 - 5.1 [facility] mEq/L [facility] Chloride 87 (L) 96 - 107 [facility] mEq/L [facility] CO2 Total 25.5 21 - 32 mEq/L [facility] Anion Gap 8.5 mEq/L [facility] BUN 4 (L) 7 - 25 mg/dl [facility] Creatinine 0.60 (L) 0.70 - 1.30 [facility] mg/dl [facility] Estimated GFR >60 >60 [facility] Comment: [facility] EGFR UNITS: mL/min/1.73 m 2 CKD-EPI Equation used to calculate. Glucose 70 70 - 180 [facility] mg/dl [facility] Calcium 7.9 (L) 8.5 - 10.1 [facility] mg/dl [facility] CALCIUM,CORRECTED - 8.9 8.5 - 10.5 [facility] mg/dl [facility] BILIRUBIN - PMC 0.70 0.00 - 1.00 [facility] mg/dl [facility] AST 56 (H) 15 - 37 U/L [facility] ALT 38 16 - 63 U/L [facility] Alkaline Phosphatase 87 46 - 116 U/L [facility] Total Protein 6.8 6.4 - 8.2 [facility] g/dl [facility] Albumin 2.7 (L) 3.4 - 5.0 [facility] g/dl [facility] GLOBULIN - PMC 4.1 g/dl [facility] ALBUMIN/GLOBULIN 0.6 [facility] RATIO - PMC [facility] Specimen Narrative [facility] - 01/13/2020 6 :35 EST Sample collected by ED but method of collection (IV Start or venipuncture) not indicated on sample. Performing Organization Address City/State/ZIP Code Phon e Number [facility] [address] [place] [address] (ABNORMAL) COMPLETE BLOOD COUNT AND DIFFERENTIAL (01/13/2020 5:42 EST) Pathologist Sig nature WBC 5.2 4.0 - 10.5 10 [facility] 3/uL [facility] RBC 3.24 (L) 4.70 - 6.00 10 [facility] 6/uL [facility] Hemoglobin 11.3 (L) 13.5 - 18.0 [facility] g/dL [facility] HCT 30.8 (L) 42.0 - 52.0 % [facility] MCV 95.1 78 - 100 fL [facility] MCH 34.9 (H) 27 - 31 pg [facility] MCHC 36.7 (H) 32 - 36 g/dL [facility] RDW-CV - [facility] 12.5 11.0 - 14.8 % [facility] PLATELET COUNT - [facility] 161 150 - 450 10 [facility] 3/[facility] LAB NEUTROPHILS % (AUTO) 52.1 42.0 - 75.0 % [facility] LYMPHOCYTES % (AUTO) 30.5 16.0 - 52.0 % [facility] MONOCYTES % (AUTO) - 13.8 (H) 1.0 - 11.0 % [facility] LAB EOSINOPHILS % (AUTO) 1.7 0.0 - 7.0 % [facility] BASOPHILS % (AUTO) - 1.3 0.0 - 4.0 % [facility] LAB NUCLEATED RBC % 0.0 <1 % [facility] (AUTO) [facility] LAB NEUTROPHILS # (AUTO) 2.7 1.5 - 6.6 10 [facility] 3/[facility] LAB LYMPHOCYTES # (AUTO) 1.6 1.0 - 3.[address] LAB MONOCYTES # (AUTO) - 0.7 <1.0 10 3/uL [facility] LAB EOSINOPHILS # (AUTO) 0.1 <0.7 10 3/uL [facility] BASOPHILS # (AUTO) - 0.1 <0.1 10 3/uL [facility] LAB NUCLEATED RBC # 0.00 <1 10 3/uL [facility] (AUTO) [facility] LAB Specimen Narrative [facility] - 01/13/2020 6 :48 EST Sample collected by ED but method of collection (IV Start or venipuncture) not indicated on sample. Performing Organization Address City/State/ZIP Code Phon e Number [facility] [address] [place] [address] OSMOLALITY, UR [facility] TEMP (01/13/2020 1:57 EST) Osmolality, Ur 239 150 - 1150 [facility] Comment: mOsm/kg [facility] Test Performed by: [facility] - [address] [address] [employer] Supervisor: Pierre Andersen M.D. Ph.D.; CLIA# [id number] Specimen Performing Organization Address City/[facility] Phon e Number [facility] [address] [place] [address] UA MICROSCOPIC - PMC (01/13/2020 1:57 EST) Pathologist Sig nature URINE RBC - PMC None Seen 0 - 2 hpf [facility] URINE WBC - PMC None seen 0 - 3 hpf [facility] URINE BACTERIA - PMC None Seen None Seen hpf [facility] URINE MUCUS - PMC None Seen lpf [facility] URINE SQUAMOUS None Seen None-Few hpf [facility] EPITHELIAL CELL - PMC [facility] Specimen Narrative [facility] - 01/13/2020 3 :07 EST Clean Catch Performing Organization Address [facility] [address] [place] [address] TROPONIN I (01/13/2020 1:57 EST) Troponin I <0.050 0 - 0.056 [facility] (ng/mL) Comment: ng/ml [facility] Interpretation: The [...] consumption of Biotin. Specimen Performing Organization Address [facility] [address] [place] [address] (ABNORMAL) SODIUM (01/13/2020 1:57 EST) Pathologist Sig nature Sodium 118 (CRIT LOW) 136 - 145 mEq/L [facility] Comment: [facility] Results called and read back to me by: Location: ER Full name: LEV JOSHUA Credentials: RN at 0258 on 01/13/20 by TESS. Specimen Performing Organization Address [facility] e Number [facility] [address] [place] [address] (ABNORMAL) BNP - PMC (01/13/2020 1:57 EST) Pathologist Sig nature B-TYPE NATRIURETIC 549 (H) <100 pg/mL [facility] PEPTIDE - [facility] LAB Specimen Performing Organization Address [facility] e Number [facility] [address] [place] [address] (ABNORMAL) UA (CULTURE IF POSITIVE) - [facility] (01/13/2020 1:57 EST) URINE COLOR - [facility] Yellow Straw/Yelow [facility] URINE APPEARANCE - Clear Clr/Hazy [facility] LAB URINE PH - [facility] 6.0 5.0 - 9.0 [facility] UR SPECIFIC GRAVITY 1.006 1.001 - 1.035 [facility] (REFRACTOM) - [facility] LAB URINE PROTEIN - [facility] Negative Negative mg/dL [facility] URINE GLUCOSE (UA) - Negative Negative mg/dL [facility] LAB URINE KETONES - [facility] Trace (A) Negative mg/dL [facility] URINE BILIRUBIN - Negative Negative [facility] LAB URINE BLOOD - [facility] Trace (A) Negative [facility] URINE UROBILINOGEN - 0.2 0.2 - 1.0 [facility] E.U./dL [facility] URINE NITRATE - [facility] Negative Negative [facility] URINE LEUKOCYTE Negative Negative [facility] ESTERASE - [facility] LAB URINE CULTURE CRITERIA NOT [facility] COMMENTS - [facility] METComment: [facility] Specimen does not meet criteria for culture. Specimen Narrative [facility] - 01/13/2020 3 :07 EST Clean Catch Performing Organization Address City/[facility]/ZIP Code Phon e Number [facility] [address] [place] [address] SODIUM, URINE RANDOM (01/13/2020 1:57 EST) Pathologist Sig nature Sodium, Urine 52 20 - 110 mEq/L [facility] Specimen Performing Organization Address City/[facility]/ZIP Code Phon e Number [facility] [address] [place] [address] documented in this encounter Visit Diagnoses Not on filedocumented in this encounter Care Teams Goat Driver Relationship Specialty Start Date End Date Katia Stone PA-C PCP - General 05/02/17 [address] [place] [phone] documented as of this encounter
--- OUTSIDE RECORDS SUMMARY | 2021-12-14 00:27 | XMS_ITS | Encounter Summary ---
:1950 Author Organization [facility] Address [address] [place] [address] Care Team Providers Name Role Phone Katia Stone PA-C Primary Care Provider Reason for Visit Reason Onset Date Comments Pacemaker Problem 05/01/2020 Follow-up 05/03/2020 Encounter Details Date Type Department Care Team Description 05/01/2020 Telephone [facility] Tony Rosenberg er Problem; Cardiology - Chaitanya Jasmine MD Follow-up [address] [place], [place] [address] [facility] [address] [place] [address] Social History Tobacco Use Types [...] 0909 EST Caller states that pt and pillowcase turner do not understand what is going on with pt's care. From after-visit notes 04/12, it is clear to typewriter tester that provider intends for pt to see Dr. Browne at [facility].Caller, pillowcase turner, and pt are unaware of a referral being sent to [facility], and seem to think thatprovider is still following care. Please call pt and pillowcase turner directly to let them know exactly what the plan of care is. elephone Encounter - Brenda Bocanegra - 05/01/2020 1409 EST Spoke with Nila. We don't have much device information here as the patient is managed by [facility]. They are wanting follow up from Dr. Rosenberg regarding the next steps for pt's device care. Told them I wouldsee what I can do to help. elephone Encounter - Haja Pavon - 05/01/2020 1304 EST Nila @ [facility] called to follow-up on pacemaker issues (problems with wires) and relay that the patient has felt a pounding around their pacemaker the last two nights. Please call. documented in this encounter Plan of Treatment Not on filedocumented as of this encounter Visit Diagnoses Not on filedocumented in this encounter Care Teams Diesel Bus Mechanic Relationship Specialty Start Date End Date Katia Stone PA-C PCP - General 05/02/17 [address] [place] [phone] documented as of this encounter
--- OUTSIDE RECORDS SUMMARY | 2021-12-14 00:27 | XMS_ITS | Encounter Summary ---
:1950 Author Organization [facility] Address [address] [place] [address] Care Team Providers Name Role Phone Katia Stone PA-C Primary Care Provider Encounter Details Date Type Department Care Team Description 01/17/2020 Results Only [facility]- Jayesh Baldwin, [address] [place] [phone] (Wo rk) Social History Tobacco Use [...] Pathologist Sig nature Cortisol, S SEE COMMENTS [facility] Comment: [facility] Test ?Result ?Flag ??Unit ?RefValue ------ Cortisol, S ??AM Result ? 11 ?mcg/dL ??7-25 Test Performed by: [facility] [address] [place] [address] Strategic Partnership Representative: Pierre Andersen M.D. Ph.D.; IA# [id number] Specimen Performing Organization Address City/State/ZIP Code Phon e Number [facility] [address] [place] [address] (ABNORMAL) BASIC METABOLIC PANEL,RANDOM - PMC (01/17/2020 7:50 EST) Sodium 130 (L) 136 - 145 mEq/L [facility] Potassium 3.7 3.5 - 5.1 mEq/L [facility] Chloride 95 (L) 96 - 107 mEq/L [facility] CO2 Total 27.4 21 - 32 mEq/L [facility] Anion Gap 7.6 mEq/L [facility] BUN 10 7 - 25 mg/dl [facility] Creatinine 0.62 (L) 0.70 - 1.30 [facility] mg/dl [facility] Estimated GFR >60 >[address] [facility] Comment: [facility] EGFR UNITS: mL/min/1.73 m 2 CKD-EPI Equation used to calculate. Glucose 91 70 - 180 mg/dl [facility] Calcium 8.4 (L) 8.5 - 10.1 [facility] mg/dl [facility] Specimen Performing Organization Address City/State/ZIP Code Phon e Number [facility] [address] [place] [address] documented in this encounter Visit Diagnoses Not on filedocumented in this encounter Care Teams Tumbling Machine Operator Relationship Specialty Start Date End Date Katia Stone PA-C PCP - General 05/02/[address] [place] [phone] documented as of this encounter
--- OUTSIDE RECORDS SUMMARY | 2021-12-14 00:27 | XMS_ITS | Encounter Summary ---
:1950 Author Organization [facility] Address [address] [place] [address] Care Team Providers Name Role Phone Katia Stone PA-C Primary Care Provider Encounter Details Date Type Department Care Team Description 08/10/2020 Results Only [facility] [place]etha Valerio, Rheumatology [address] [address] [address] [place] [address] (Wo rk) Social History Tobacco Use [...] Magnesium 1.5 (L) 1.8 - 2.4 mg/dl [facility] Specimen Performing Organization Address City/State/ZIP Code Phon e Number [facility] [address] [place] [address] (ABNORMAL) BASIC METABOLIC PANEL (BMP) (08/10/2020 5:35 EDT) Sodium 133 (L) 136 - 145 mEq/L [facility] Potassium 3.4 (L) 3.5 - 5.1 mEq/L [facility] Chloride 98 96 - 107 mEq/L [facility] CO2 Total 27.2 21 - 32 mEq/L [facility] Anion Gap 7.8 mEq/L [facility] BUN 6 (L) 7 - 25 mg/dl [facility] Creatinine 0.54 (L) 0.70 - 1.30 [facility] mg/dl [facility] Estimated GFR >60 >60 [facility] Comment: [facility] EGFR UNITS: mL/min/1.73 m 2 CKD-EPI Equation used to calculate. Glucose 86 74 - 106 mg/dl [facility] Calcium 7.7 (L) 8.5 - 10.1 [facility] mg/dl [facility] Specimen Performing Organization Address [facility] LAB [address] [place] [address] (ABNORMAL) HEPATIC FUNCTION PANEL (ALB,ALK PHOS,ALT,AST,DBIL,TOT BOSSMAN,TOT PROT) (08/10/2020 5:35 EDT) Pathologist Sig nature BILIRUBIN - [facility] 0.90 0.00 - 1.00 [facility] mg/dl [facility] DIRECT BILIRUBIN - 0.50 (H) 0.00 - 0.30 [facility] mg/dl [facility] INDIRECT BILIRUBIN - 0.40 0.00 - 0.80 [facility] mg/dl [facility] AST 50 (H) 15 - 37 U/L [facility] ALT 37 16 - 63 U/L [facility] Alkaline Phosphatase 97 46 - 116 U/L [facility] Total Protein 6.1 (L) 6.4 - 8.2 g/dl [facility] Albumin 2.3 (L) 3.4 - 5.0 g/dl [facility] GLOBULIN - [facility] 3.8 g/dl [facility] ALBUMIN/GLOBULIN 0.6 [facility] RATIO - [facility] Specimen Performing Organization Address [facility] LAB [address] [place] [address] (ABNORMAL) COMPLETE BLOOD COUNT AND DIFFERENTIAL (08/10/2020 5:35 EDT) WBC 7.0 4.0 - 10.5 10 [facility] 3/uL [facility] RBC 2.72 (L) 4.70 - 6.00 [facility] 10 6/uL [facility] Hemoglobin 9.7 (L) 13.5 - 18.0 [facility] g/dL [facility] HCT 27.9 (L) 42.0 - 52.0 % [facility] MCV 102.6 (H) 78 - 100 fL [facility] LAB MCH 35.7 (H) 27 - 31 pg [facility] LAB MCHC 34.8 32 - 37 g/dL [facility] RDW-CV - PMC 14.7 <14.7 % [facility] PLATELET COUNT - [facility] 180 150 - [address] LAB MPV 11.0 9.2 - 12.0 fL [facility] NEUTROPHILS % (AUTO) 65.5 % [facility] LAB LYMPHOCYTES % (AUTO) 17.5 % [facility] LAB MONOCYTES % (AUTO) - 13.9 % [facility] LAB EOSINOPHILS % (AUTO) 2.1 % [facility] LAB BASOPHILS % (AUTO) - 0.4 % [facility] LAB Immature Granulocyte 0.6 % [facility] % (Auto) [facility] NUCLEATED RBC % 0.0 % [facility] (AUTO) [facility] LAB NEUTROPHILS # (AUTO) 4.6 1.5 - 6.[address] LAB LYMPHOCYTES # (AUTO) 1.2 1.0 - 3.[address] LAB MONOCYTES # (AUTO) - 1.0 <1.0 10 3/[facility] LAB EOSINOPHILS # (AUTO) 0.2 <0.7 10 3/[facility] LAB Absolute Immature 0.04 <0.06 10 3/[facility] LAB DIFFERENTIAL METHOD Auto Differential [facility] Specimen Performing Organization Address City/State/ZIP Code Phon e Number [facility] [address] [place] [address] documented in this encounter Visit Diagnoses Not on filedocumented in this encounter Care Teams Residential Program Worker Relationship Specialty Start Date End Date Katia Stone PA-C PCP - General 05/02/17 [address] [place] [phone] documented as of this encounter
--- OUTSIDE RECORDS SUMMARY | 2021-12-14 00:27 | XMS_ITS | Encounter Summary ---
:1950 Author Organization [facility] Address [address] [place] [address] Care Team Providers Name Role Phone Katia Stone PA-C Primary Care Provider Encounter Details Date Type Department Care Team Description 01/13/2020 Results Only [facility]- Jayesh Baldwin, [address] [place] [phone] (Wo rk) Social History Tobacco Use [...] [facility] Specimen Performing Organization Address [facility] Code Phon e Number [facility] [address] [place] [address] (ABNORMAL) SODIUM (01/13/2020 13:12 EST) Pathologist Sig nature Sodium 126 (L) 136 - 145 mEq/L [facility] Specimen Performing Organization Address [facility] Phon e Number [facility] [address] [place] [address] documented in this encounter Visit Diagnoses Not on filedocumented in this encounter Care Teams Manager Contracting Relationship Specialty Start Date End Date Katia Stone PA-C PCP - General 05/02/17 [address] [place] [phone] documented as of this encounter
--- OUTSIDE RECORDS SUMMARY | 2021-12-14 00:27 | XMS_ITS | Encounter Summary ---
:1950 Author Organization [facility] Address [address] [place] [address] Care Team Providers Name Role Phone Katia Stone PA-C Primary Care Provider Reason for Visit Reason Onset Date Comments Other 06/21/2020 patient wants to can xin surgery Encounter Details Date Type Department Care Team Description 06/21/2020 Telephone [facility] Cherie Browne MD Other ([facility], [address], [address] [place], [place] [address] [place] [address] [phone] (Wo rk) Social History Tobacco Use [...] with (Whitney). Pt was called by his Home Designer on 06/21 x 2 and finally Maru Villalobos the Home Designer sent the State Police to his house per Maru to do a welfare check as he doesn't follow instructions or return calls per Maru. He didn't go for a covid test and the ride was set up for him by Maur Home Designer and he cancelled it. He states he [...] Melania Dumas - 06/21/2020 1350 EDT Nila (Lvn Lpn) from [place] calling to advise that patient wants to cancel surgery on Friday06/26/2020 as he believes he has pneumonia. Per Nila, patient has not been seen by anyone and declined calling ambulance to take him to ED. documented in this encounter Plan of Treatment Not on filedocumented as of this encounter Visit Diagnoses Not on filedocumented in this encounter Care Teams Kick Plate Installer Relationship Specialty Start Date End Date Katia Stone PA-C PCP - General 05/02/[address] [place] [phone] documented as of this encounter
--- OUTSIDE RECORDS SUMMARY | 2021-12-14 00:27 | XMS_ITS | Encounter Summary ---
:1950 Author Organization [facility] Address [address] [place] [address] Care Team Providers Name Role Phone Katia Stone PA-C Primary Care Provider Reason for Visit Reason Onset Date Comments Appointment Related 06/06/2020 Encounter Details Date Type Department Care Team Description 06/06/2020 Telephone [facility] Cherie Browne MD Appointment Related Cardiothoracic Surgery - [address] [place] [address], [address], [address] [place], [place] [address] [place] [address] [phone] (Wo rk) Social History Tobacco Use [...] Telephone Encounter - Alma Dhillon - 06/06/2020 1125 EDT At her request, I have telephoned Nurse Rug Cleaner Hand, Nila, at [facility] to advise of this patient's surgery [...] on filedocumented in this encounter Care Teams Drill Operator Pneumatic Relationship Specialty Start Date End Date Katia Stone PA-C PCP - General 05/02/[address] [place] [phone] documented as of this encounter
--- OUTSIDE RECORDS SUMMARY | 2021-12-14 00:27 | XMS_ITS | Encounter Summary ---
:1950 Author Organization [facility] Address [address] [place] [address] Care Team Providers Name Role Phone Katia Stone PA-C Primary Care Provider Encounter Details Date Type Department Care Team Description 08/11/2020 Results Only [facility] - [facility] Geetha Valerio, Rheumatology [address] [facility] [address] [place] [address] [address] [place] [address] (Wo rk) Social History Tobacco Use [...] Magnesium 1.5 (L) 1.8 - 2.4 mg/dl [facility] Specimen Performing Organization Address City/State/ZIP Code Phon e Number [facility] [address] [place] [address] (ABNORMAL) BASIC METABOLIC PANEL (BMP) (08/11/2020 5:25 EDT) Sodium 132 (L) 136 - 145 mEq/L [facility] Potassium 3.5 3.5 - 5.1 mEq/L [facility] Chloride 99 96 - 107 mEq/L [facility] CO2 Total 28.6 21 - 32 mEq/L [facility] Anion Gap 4.4 mEq/L [facility] BUN 5 (L) 7 - 25 mg/dl [facility] Creatinine 0.51 (L) 0.70 - 1.30 [facility] mg/dl [facility] Estimated GFR >60 >60 [facility] Comment: [facility] EGFR UNITS: mL/min/1.73 m 2 CKD-EPI Equation used to calculate. Glucose 112 (H) 74 - 106 mg/dl [facility] Calcium 7.7 (L) 8.5 - 10.1 [facility] mg/dl [facility] Specimen Performing Organization Address City/[facility]/ZIP Code Phon e Number [facility] [address] [place] [address] (ABNORMAL) HEPATIC FUNCTION PANEL (ALB,ALK PHOS,ALT,AST,DBIL,TOT BOSSMAN,TOT PROT) (08/11/2020 5:25 EDT) Pathologist Sig nature BILIRUBIN - PM[facility] 0.70 0.00 - 1.00 [facility] mg/dl [facility] DIRECT BILIRUBIN - [facility] 0.30 0.00 - 0.30 [facility] mg/dl [facility] INDIRECT BILIRUBIN - 0.40 0.00 - 0.80 [facility] mg/dl [facility] AST 39 (H) 15 - 37 U/L [facility] ALT 30 16 - 63 U/L [facility] Alkaline Phosphatase 95 46 - 116 U/L [facility] Total Protein 6.1 (L) 6.4 - 8.2 g/dl [facility] Albumin 2.2 (L) 3.4 - 5.0 g/dl [facility] GLOBULIN - [facility] 3.9 g/dl [facility] ALBUMIN/GLOBULIN RATIO 0.5 [facility] Specimen Performing Organization Address City/[facility]/ZIP Code Phon e Number [facility] [address] [place] [address] documented in this encounter Visit Diagnoses Not on filedocumented in this encounter Care Teams Growth Hacker Relationship Specialty Start Date End Date Katia Stone PA-C PCP - General 05/02/17 [address] [place] [phone] documented as of this encounter
--- OUTSIDE RECORDS SUMMARY | 2021-12-14 00:27 | XMS_ITS | Encounter Summary ---
:1950 Author Organization [facility] Address [address] [place] [address] Care Team Providers Name Role Phone Katia Stone PA-C Primary Care Provider Encounter Details Date Type Department Care Team Description 01/16/2020 Results Only [facility] - [address], Provider, [place] [facility] [address] [place], [place] [id number] Social History Tobacco Use Types Packs/Day Years [...] Sodium 129 (L) 136 - 145 mEq/L [facility] Potassium 3.8 3.5 - 5.1 mEq/L [facility] Chloride 95 (L) 96 - 107 mEq/L [facility] CO2 Total 27.5 21 - 32 mEq/L [facility] Anion Gap 7.5 mEq/L [facility] BUN 10 7 - 25 mg/dl [facility] Creatinine 0.64 (L) 0.70 - 1.30 [facility] mg/dl [facility] Estimated GFR >60 >60 [facility] Comment: [facility] EGFR UNITS: mL/min/1.73 m 2 CKD-EPI Equation used to calculate. Glucose 91 74 - 106 mg/dl [facility] Calcium 8.4 (L) 8.5 - 10.1 [facility] mg/dl [facility] Specimen Performing Organization Address City/State/ZIP Code Phon e Number [facility] [address] [place] [address] documented in this encounter Visit Diagnoses Not on filedocumented in this encounter Care Teams Aeronautical Engineering Professor Relationship Specialty Start Date End Date Katia Stone PABijalC PCP - General 05/02/17 [address] [place] [phone] documented as of this encounter
--- OUTSIDE RECORDS SUMMARY | 2021-12-14 00:27 | XMS_ITS | Encounter Summary ---
:1950 Author Organization [facility] Address [address] [place] [address] Care Team Providers Name Role Phone Katia Stone PA-C Primary Care Provider Encounter Details Date Type Department Care Team Description 01/16/2020 Results Only Imaging [facility] - Keith Olmos karena [facility] MD Jarad Radiology Results [address] [place] [phone] (Wo rk) Social History Tobacco Use Types [...] W CONTRAST (01/16/2020 13:19 EST) Specimen Narrative [facility] - 2019 13:19 EST ?[facility]: [facility] ?[address] ?[place] [address] ?Diagnostic Imaging Report ? Signed ? Patient Name:DAVID FARFAN ? Date of :1950 ?MR Number:[id number] ? Age:69 ?Sex:M ? Category: CT ?Date of Exam:01/16/20 ? Procedure: CT: Thorax; with contrast ? Ordering Physician: Nickolas ([facility])Jayesh MD ?Patient ? CC: ?? Emeterio Wynne MD ?? Jayesh Olmos MD ([facility]) ?? Katia Mccallum ? PROCEDURE INFORMATION: [...] regarding this report , please contact the [facility] Operations Center at [phone] ? Dictated by: Brenda Dixon MD ?D/ ?? 1319 ?? Transcribed by: SERGEY ?D/T: ? E-Signed by: Brenda Dixon MD ?D/ ?? 1528 ?? Procedure Note Brenda Dixon MD - [facility] [address] [address] Diagnostic Imaging Report Signed Patient Name:DAVID FARFAN r:[id number] Date of :1950 MR Number:[id number] Age:69 Sex:M Category: CT Date of Exam:01/16/20 Procedure: CT: Thorax; with contrast Ac cession: [id number] Ordering Physician: Nickolas ([facility])Jayesh MD Patient CC: Emeterio Wynne MD, Michael MD ([facility]) Katia Mccallum PROCEDURE INFORMATION: Exam: CT [...] regarding this report , please contact the [facility] at [phone] Dictated by: Brenda Dixon MD D/T: 1319 Transcribed by: SERGEY D/T: E-Signed by: Brenda Dixon MD D/T: 1528 Performing Organization Address City/State/ZIP Code Phon e Number [facility] XR CHEST 2 VIEWS (01/16/2020 9:51 EST) Specimen Narrative [facility] - 2019 9:51 EST ?[facility]: [facility] ?[address] ?[place] [address] ?Diagnostic Imaging Report ? Signed ? Patient Name:DAVID FARFAN ? Date of :1950 ?MR Number:[id number] ? Age:69 ?Sex:M ? Category: CR ?Date of Exam:01/16/20 ? Procedure: CR: Chest; Frontal/LAT views ? 923 ? Ordering Physician: Nickolas ([facility])Jayesh MD ?Patient ? CC: ?? Emeterio Wynne MD ?? Jayesh Olmos MD ([facility]) ?? Katia Mccallum ? PROCEDURE INFORMATION: [...] regarding this report , please contact the [facility] at [phone] ? Dictated by: Brenda Dixon MD ?D/ ?? 0951 ?? Transcribed by: SERGEY ?D/T: ? E-Signed by: Brenda Dixon MD ?D/ ?? 1121 ?? Procedure Note Brenda Dixon MD - [facility]/01/[facility] [place] [id number] Diagnostic Imaging Report Signed Patient Name:DAVID FARFAN r:[id number] Date of :1950 MR Number:[id number] Age:69 Sex:M Category: CR Date of Exam:01/16/20 Procedure: CR: Chest; Frontal/LAT views 923 Ordering Physician: Nickolas ([facility])Jayesh MD Patient CC: Emeterio Wynne MD, Michael MD ([facility]) Katia Mccallum PROCEDURE INFORMATION: Exam: XR [...] regarding this report , please contact the [facility] at [phone] Dictated by: Brenda Dixon MD D/T: 0951 Transcribed by: SERGEY D/T: E-Signed by: Brenda Dixon MD D/T: 1121 Performing Organization Address City/State/ZIP Code Phon e Number [facility] documented in this encounter Visit Diagnoses Not on filedocumented in this encounter Care Teams Police Patrol Lieutenant Relationship Specialty Start Date End Date Katia Stone PA-C PCP - General 05/02/[address] [place] [phone] documented as of this encounter
--- OUTSIDE RECORDS SUMMARY | 2021-12-14 00:27 | XMS_ITS | Encounter Summary ---
:1950 Author Organization [facility] Address [address] [place] [address] Care Team Providers Name Role Phone Katia Stone PA-C Primary Care Provider Reason for Visit Reason Onset Date Comments Other 06/07/[address] Mihir rama RN Other 06/08/2020 mailed pre-op instru ctions to patient Encounter Details Date Type Department Care Team Description 06/07/2020 Telephone [facility] Cherie Browne MD Other (questions for Cardiothoracic Surgery - [address] [facility] [address] Surgery RN); Other Main [facility] (mailed pre-op [address] [facility] [place], Level 5 instructions to [place], [place] [address] [place] [address] patient) [phone] (Wo rk) Social History Tobacco Use [...] EDT Pre-op instructions mailed to patient at: [address] [place] [address] Address updated in [facility]. elephone Encounter - Cat Sutherland RN - 06/07/2020 1526 EDT Called and left message for Maru Villalobos RN at [place] PCP Database Analyst to get correct address (mailing address) for patient and then have changed in Registration as he doesn't live in [place] anymore. She was going to call us [...] the Division of Cardiothoracic Surgery at the [facility]. We look forward to making your [...] located near the Main Entrance of the [employer] [facility] Assistant Center at the [facility] Main [place]. Prior to surgery, you will be scheduled for an anesthesia pre-screen telephone call with the Pre-Operative Department ??? Your telephone call has been scheduled for: To Be Announced between To Be Announced and To Be Announced ??? If you do not receive an appointment for the pre-screen call within two days of this appointment, please contact our office at [phone]. We have included a local lodging list [...] days prior to your surgery. [place] 14 days prior to surgery. ??? Acetaminophen [...] CHANGED, CALL OUR OFFICE RIGHT AWAY AT [phone]) ??? Continue to take all of your [...] clothing. ??? Do not wear any nail estonian, makeup, powder, lotion, deodorant or jewelry of [...] timely results. The Patient Access Center at [facility] will contact you with an appointment at [...] APPOINTMENT CONTACT THE PATIENT ACCESS CENTER AT [phone]. ??? While waiting for your surgery, you [...] to the Surgeon's office on Level 5 [facility] Outpatient office. Note: If for [...] listed below. The Division of Cardiothoracic Surgery [address] [place] [address] (Toll Free) MD Geovanni Toure MD Marek Polomsky, MD Chris Rokkas, MD /josh & ep 03/2020 elephone Encounter - Cat Sutherland RN - 06/07/[address] Surgery Up[place] Maru Villalobos tumor registrar at [facility] [address] [facility] [phone] EXT 7 states patient's son and and is not on Adv Directive now. Questions call Maru Villalobos. Pre-Op Instructions mailed to patient and faxed to Maru [phone]. She will review with the patient and I will as well. Check in time for surgery on 06/26 has not been confirmed yet per our General Maintenance Mechanic. Maru will set up COVID test as he needs a equipment driver and he will also need a ride to [place] for surgery which she will arrange. elephone Encounter - Melania Dumas - 06/07/2020 1013 EDT Maru from [place] calling with questions for CT Surgery RN. Requesting return call to [phone], extension 7. documented in this encounter Plan of Treatment Not on filedocumented as of this encounter Visit Diagnoses Diagnosis Encounter for preoperative screening lab oratory testing for COVID-19 virus - Primary documented in this encounter Care Teams Chief Of Staff Doctor Relationship Specialty Start Date End Date Katia Stone PA-C PCP - General 05/02/17 [address] [place] [phone] documented as of this encounter
--- OUTSIDE RECORDS SUMMARY | 2021-12-14 00:27 | XMS_ITS | Encounter Summary ---
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, initial encounter José Miguel Roca PA-C Procedures XR CHEST 2 VIEWS [address] [phone] Referral ID Status Reason Start Expiration Visits Visits Date Date Requested Authorized [id number] Authorization Not 05/16/2020 1 1 Required Reason for Visit Radiology Services (Routine) - Authorization Not Required Specialty Diagnoses / Procedures Referred By Contact Refer red To Contact Diagnoses 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, initial encounter José Miguel Roca PA-C Procedures XR CHEST 2 VIEWS [address] [phone] Referral ID Status Reason Start Expiration Visits Visits Date Date Requested Authorized [id number] Authorization Not 05/16/2020 1 1 Required Encounter Details Date Type Department Care Team Description 05/16/2020 Hospital Encounter Medical Center Displac ement of Radiology Xray electrode fer cruz of Outpatient - [facility] cardiac [facility] initial encounter [address] [place] [address] Social History Tobacco Use Types Packs/Day Years [...] Region Laterality Modality Computed Radiography Specimen Impressions [facility] - 05/16/2020 11:56 EDT 1. ??No significant change from prior. I have personally reviewed the images an d the above interpretation and agree with the findings. Narrative [facility] - 05/16/2020 11:56 EDT [...] Organization Address City/State/ZIP Code Phon e Number [facility] documented in this encounter Visit Diagnoses Diagnosis Displacement of electrode lead of cardia c pacemaker, initial encounter documented in this encounter Care Teams Nonprofit Manager Relationship Specialty Start Date End Date Katia Stone, BELLAC PCP - General 05/02/17 [address] [place] [phone] documented as of this encounter
--- OUTSIDE RECORDS SUMMARY | 2021-12-14 00:27 | XMS_ITS | Encounter Summary ---
:1950 Author Organization [facility] Address [address] [place] [address] Care Team Providers Name Role Phone Katia Stone PA-C Primary Care Provider Encounter Details Date Type Department Care Team Description 08/09/2020 Results Only [facility] Virginia Quintana MD Dermatology - [facility] [address] [place], [place] [address] [address] [place], [place] [address] [phone] Social History Tobacco Use Types Packs/Day Years [...] EDT) Sodium 128 (L) 136 - 145 [facility] mEq/L [facility] Potassium 3.3 (L) 3.5 - 5.1 [facility] mEq/L [facility] Chloride 90 (L) 96 - 107 [facility] mEq/L [facility] CO2 Total 27.4 21 - 32 mEq/L [facility] Anion Gap 10.6 mEq/L [facility] BUN 11 7 - 25 mg/dl [facility] Creatinine 0.71 0.70 - 1.30 [facility] mg/dl [facility] Estimated GFR >60 >60 [facility] Comment: [facility] EGFR UNITS: mL/min/1.73 m 2 CKD-EPI Equation used to calculate. Glucose 117 (H) 74 - 106 [facility] mg/dl [facility] Calcium 8.3 (L) 8.5 - 10.1 [facility] mg/dl [facility] CALCIUM,CORRECTED - 9.4 8.5 - 10.5 [facility] PMC mg/dl [facility] BILIRUBIN - [facility] 1.30 (H) 0.00 - 1.00 [facility] mg/dl [facility] AST 62 (H) 15 - 37 U/L [facility] ALT 46 16 - 63 U/L [facility] Alkaline Phosphatase 114 46 - 116 U/L [facility] Total Protein 6.7 6.4 - 8.2 [facility] g/dl [facility] Albumin 2.6 (L) 3.4 - 5.0 [facility] g/dl [place] [facility] GLOBULIN - [facility] 4.1 g/dl [facility] ALBUMIN/GLOBULIN 0.6 [facility] RATIO [facility] Specimen Performing Organization Address City/State/ZIP Code Phon e Number [facility] [address] [place] [address] (ABNORMAL) COMPLETE BLOOD COUNT AND DIFFERENTIAL (08/09/2020 5:35 EDT) WBC 10.3 4.0 - 10.[address] LAB RBC 2.98 (L) 4.70 - 6.00 [place] [address] 6/uL [facility] Hemoglobin 10.6 (L) 13.5 - 18.0 [facility] g/dL [place] [facility] HCT 29.6 (L) 42.0 - 52.0 % [facility] MCV 99.3 78 - 100 fL [facility] MCH 35.6 (H) 27 - 31 pg [facility] MCHC 35.8 32 - 37 g/dL [facility] RDW-CV - [facility] 13.8 <14.7 % [facility] PLATELET COUNT - [facility] 179 150 - [address] LAB MPV 11.6 9.2 - 12.0 fL [facility] NEUTROPHILS % (AUTO) 84.2 % [facility] LYMPHOCYTES % (AUTO) 7.2 % [facility] MONOCYTES % (AUTO) - 8.0 % [facility] EOSINOPHILS % (AUTO) 0.0 % [facility] BASOPHILS % (AUTO) - 0.1 % [facility] Immature Granulocyte 0.5 % [facility] % (Auto) [facility] NUCLEATED RBC % 0.0 % [facility] (AUTO) [facility] NEUTROPHILS # (AUTO) 8.7 (H) 1.5 - 6.6 [facility] 3[facility] LYMPHOCYTES # (AUTO) 0.7 (L) 1.0 - 3.5 10 [facility] 3/uL [facility] MONOCYTES # (AUTO) - 0.8 <1.0 10 3/uL [facility] EOSINOPHILS # (AUTO) 0.0 <0.7 10 3/uL [facility] Absolute Immature 0.05 <0.06 10 3/uL [facility] DIFFERENTIAL METHOD Auto Differential [facility] Specimen Performing Organization Address City/State/ZIP Code Phon e Number [facility] [address] [place] [address] C DIFFICILE TOXIN PCR, F > 2 YRS - [facility] (08/09/2020 3:24 EDT) Specimen Narrative [facility] - 08/10/2020 6 :26 EDT ?? RUN DATE: 08/10/20 ? [facility]: [facility] *LIVE* ? PAGE 1 ? RUN TIME: 625 ?Specimen Inquiry ? PATIENT: ADOLPHDAVID Juan ? ACCT: [id number] LOC: ??MS ? U: [id number] ? AGE/SX: 69/M ? ROOM: 138 ?RE08/09/20 ?? REG : ??Ester Valerio MD ? : ?1950 ?? BED: ??1 ?DIS: ? STATUS: ADM Astrid ?TLOC: ? SPEC #: [id number] ?ALEX: ? STATUS: ??COMP ? REQ #: [id number] ?RECD: 08/10/20 ? SUBM DR: Jennifer Tyson [...] END OF REPORT ? Performing Organization Address City/State/[facility] Code Phon e Number [facility] [address] [place] [address] documented in this encounter Visit Diagnoses Not on filedocumented in this encounter Care Teams Industrial Locomotive Operator Relationship Specialty Start Date End Date Katia Stone, BELLAC PCP - General 05/02/17 [address] [place] [phone] documented as of this encounter
--- OUTSIDE RECORDS SUMMARY | 2021-12-14 00:27 | XMS_ITS | Encounter Summary ---
:1950 Author Organization [facility] Address [address] [place] [address] Care Team Providers Name Role Phone Katia Stone PA-C Primary Care Provider Reason for Visit Reason Onset Date Comments Other 06/13/2020 Encounter Details Date Type Department Care Team Description 06/13/[address] [facility] Cardiothoracic Cat Sutherland RN Other Surgery - [facility] s [address] [place], [place] [id number] Social History Tobacco Use Types Packs/Day Years [...] for surgery at 1210 on 06/26. His Card Game Operator with PCP is setting up his ride for [place] on 06/26 and for his COVID test that will need to be done 3-4 days prior to surgery. Patient verbalized understanding. I called the patient's Card Game Operator at [facility] at [phone] and left her a message (Maru Villalobos, TISH). She will be arranging his ride to [place] on [place] and for his COVID test. I have updated our TECHNICAL OPERATIONS MANAGER and Beulah FAIR CM at [facility] as well. documented in this encounter Plan of Treatment Not on filedocumented as of this encounter Visit Diagnoses Not on filedocumented in this encounter Care Teams Hand Spring Repairer Helper Relationship Specialty Start Date End Date Katia Stone, BELLAC PCP - General 05/02/17 [address] [place] [id number] documented as of this encounter
--- OUTSIDE RECORDS SUMMARY | 2021-12-14 00:27 | XMS_ITS | Encounter Summary ---
:1950 Author Organization [facility] Address [address] [place] [address] Care Team Providers Name Role Phone Katia Stone PA-C Primary Care Provider Encounter Details Date Type Department Care Team Description 08/11/2020 Results Only [facility] - [facility]mos, [facility] [address] [place] [address] [place], [place] [phone] (Wo rk) Social History Tobacco Use [...] EDT) PARASITE ID - PMC SEE NOTES [facility] Comment: CENTER LAB RESULT: No ova and parasites seen. Source:stool (If Cryptosporidium, Cyclospora, or Microsporidium are suspected, specific tests must be requested.) Single negative specimen does not rule out the possibility of a parasitic infection. Test [place] [address] Specimen Narrative [facility] - 08/14/2020 1 5:34 EDT stool Performing Organization Address [facility] Phon e Number [facility] [address] [place] [address] FECAL BACTERIAL PATHOGENS BY PCR (08/11/2020 14:50 EDT) Salmonella PCR Negative Negative [facility] Shigella/Enteroinvasi Negative Negative [facility] ve E. coli CENTER LAB HN LAB CAMPYLOBACTER Negative Negative [facility] PCR [facility]ENTER [facility] Shiga Toxin PCR Negative Negative [facility] Comment: CENTER LAB Test performed or referred by The [address] [address] Specimen Performing Organization Address [facility] Phon e Number [facility] [address] [place] [address] documented in this encounter Visit Diagnoses Not on filedocumented in this encounter Care Teams Public Policy Mediator Relationship Specialty Start Date End Date Katia Stone PA-C PCP - General 05/02/[address] [place] [phone] documented as of this encounter
--- OUTSIDE RECORDS SUMMARY | 2021-12-14 00:27 | XMS_ITS | Encounter Summary ---
:1950 Author Organization [facility] Address [address] [place] [address] Care Team Providers Name Role Phone Katia Stone PA-C Primary Care Provider Reason for Visit Reason Onset Date Comments Confirmation 06/19/2020 Encounter Details Date Type Department Care Team Description 06/19/2020 Telephone [facility] Cardiothoracic Cat Sutherland RN Confirmation Surgery - [facility] s [address] [place], [place] [id number] Social History Tobacco Use Types Packs/Day Years [...] the patient to call Maru Villalobos his Rug Inspector as she is arranging his rides for his COVID test and Surgery as well as his instructions for surgery. I also left Maru a message as well. elephone Encounter - Alma Dhillon - 06/20/2020 0938 EDT FYI---Patient's Microbiological Analyst calls to say she is not able [...] well to Maru Villalobos RN the patient's Rug Inspector at PCP office, which she did receive. Maru had stated previously that she is arranging a ride for the patient to his COVID test 3-4 days prior to surgery and also arranging ride to [facility] on the day of surgery and will assist in helping patient understand instructions. I have called Maru Villalobos RN and left her a message to call me back on 06/20. I will also call the patient on 06/20 New phone numbers for Maru: [phone] EXT#4, EXT#231 Or direct line = [phone] signed by Cat Sutherland RN at 06/19/2020 16:46 EDTdocumented in this encounter Plan of Treatment Not on filedocumented as of this encounter Visit Diagnoses Not on filedocumented in this encounter Care Teams Fur Dry Cleaner Hand Relationship Specialty Start Date End Date Katia Stone PA-C PCP - General 05/02/[address] [place] [id number] documented as of this encounter
--- OUTSIDE RECORDS SUMMARY | 2021-12-14 00:27 | XMS_ITS | Encounter Summary ---
:1950 Author Organization [facility] Address [address] [place] [address] Care Team Providers Name Role Phone Katia Stone PA-C Primary Care Provider Encounter Details Date Type Department Care Team Description 08/08/2020 Results Only [facility] Virginia Quintana MD Dermatology - [facility] [address] [facility] [address] [place], [place] [address] [id number] [place], [place] [address] [phone] Social History Tobacco Use Types Packs/Day Years [...] 08/08/2020 21:17 Resu lts for this - [facility] EDT procedure are i n the results section. MAGNESIUM Routine 08/08/2020 16:47 Results for this EDT procedure are i n the results section. documented in this encounter Results ADD ON TEST REQUEST - PMC (08/08/2020 21:17 EDT) Pathologist Sig nature Special Requests ADD ON DONE [facility] Comment: CENTER LAB All tests (see tests in sample comments) have been add ed as requested. Specimen Narrative [facility] - 08/08/2020 2 1:57 EDT ED this evening Mg Performing Organization Address City/[facility]/ZIP Code Phon e Number [facility] [address] [place] [address] (ABNORMAL) MAGNESIUM (08/08/2020 16:47 EDT) Pathologist Sig nature Magnesium 1.7 (L) 1.8 - 2.4 mg/dl [facility] Specimen Performing Organization Address City/[facility]/ZIP Code Phon e Number [facility] [address] [place] [address] documented in this encounter Visit Diagnoses Not on filedocumented in this encounter Care Teams Data Modeling Architect Relationship Specialty Start Date End Date Katia Stone PA-C PCP - General 05/02/[address] [place] [phone] documented as of this encounter
--- OUTSIDE RECORDS SUMMARY | 2021-12-14 00:27 | XMS_ITS | Encounter Summary ---
:1950 Author Organization [facility] Address [address] [place] [address] Care Team Providers Name Role Phone Katia Stone PA-C Primary Care Provider Encounter Details Date Type Department Care Team Description 08/12/2020 Results Only [facility] Geetha Valerio, Rheumatology [address] [facility] [address] [place] [address] [address] [place] [address] (Wo rk) Social History Tobacco Use [...] Magnesium 1.4 (L) 1.8 - 2.4 mg/dl [facility] Specimen Performing Organization Address City/State/ZIP Code Phon e Number [facility] [address] [place] [address] (ABNORMAL) BASIC METABOLIC PANEL (BMP) (08/12/2020 6:48 EDT) Sodium 135 (L) 136 - 145 mEq/L [facility] Potassium 3.2 (L) 3.5 - 5.1 mEq/L [facility] Chloride 101 96 - 107 mEq/L [facility] CO2 Total 28.8 21 - 32 mEq/L [facility] Anion Gap 4.2 mEq/L [facility] BUN 5 (L) 7 - 25 mg/dl [facility] Creatinine 0.50 (L) 0.70 - 1.30 [facility] mg/dl [facility]ENTER [facility] Estimated GFR >60 >60 [facility] Comment: CENTER [facility] EGFR UNITS: mL/min/1.73 m 2 CKD-EPI Equation used to calculate. Glucose 102 74 - 106 mg/dl [facility] Calcium 7.9 (L) 8.5 - 10.1 [facility] mg/dl [facility] Specimen Performing Organization Address [facility]/ZIP Code Phon e Number [facility] [address] [place] [address] (ABNORMAL) HEPATIC FUNCTION PANEL (ALB,ALK PHOS,ALT,AST,DBIL,TOT BOSSMAN,TOT PROT) (08/12/2020 6:48 EDT) Pathologist Sig nature BILIRUBIN - PMC 0.50 0.00 - 1.00 [facility] mg/dl [facility] DIRECT BILIRUBIN - PMC 0.20 0.00 - 0.30 [facility] mg/dl [facility] INDIRECT BILIRUBIN - 0.30 0.00 - 0.80 [facility] PMC mg/dl [facility] AST 31 15 - 37 U/L [facility] ALT 25 16 - 63 U/L [facility] Alkaline Phosphatase 99 46 - 116 U/L [facility] Total Protein 5.9 (L) 6.4 - 8.2 g/dl [facility] Albumin 2.2 (L) 3.4 - 5.0 g/dl [facility] GLOBULIN - [facility] 3.7 g/dl [facility] ALBUMIN/GLOBULIN RATIO 0.5 [facility] Specimen Performing Organization Address City/[facility]/ZIP Code Phon e Number [facility] [address] [place] [address] documented in this encounter Visit Diagnoses Not on filedocumented in this encounter Care Teams Senior Sales Operations Manager Relationship Specialty Start Date End Date Katia Stone PA-C PCP - General 05/02/[address] [place] [place] [phone] documented as of this encounter
--- OUTSIDE RECORDS SUMMARY | 2021-12-14 00:27 | XMS_ITS | Encounter Summary ---
:1950 Author Organization [facility] Address [address] [place] [address] Care Team Providers Name Role Phone Katia Stone PA-C Primary Care Provider Reason for Visit Reason Onset Date Comments Appointment Related 06/19/2020 Encounter Details Date Type Department Care Team Description 06/19/2020 Telephone [facility] Cherie Browne MD Appointment Related Cardiothoracic Surgery - [address] [place] [address], [address], [address] [place], [place] [address] [place] [address] [phone] (Wo rk) Social History Tobacco Use [...] - 06/19/2020 0858 EDT TC to Nila, Gravel Roofer, at patient's PCP Office. She is aware that patient has a PAT appointment today between 4:00 and 4:45 pm with an Anesthesia Nurse. Patient is scheduled for surgery on 06/26 at 12:10 pm and should arrive in the Registration Department at 10:10 am. Gravel Roofer states that patienthas a COVID test scheduled for 06/22 at [facility]. New telephone number noted for Gravel Roofer is [phone]. documented in this encounter Plan of Treatment Not on filedocumented as of this encounter Visit Diagnoses Not on filedocumented in this encounter Care Teams Armored Service Technician Relationship Specialty Start Date End Date Katia Stone PA-C PCP - General 05/02/[address] [place] [place] [phone] documented as of this encounter
--- OUTSIDE RECORDS SUMMARY | 2021-12-14 00:27 | XMS_ITS | Encounter Summary ---
:1950 Author Organization [facility] Address [address] [place] [address] Care Team Providers Name Role Phone Katia Stone PA-C Primary Care Provider Reason for Visit Reason Onset Date Comments Other 05/19/2020 Encounter Details Date Type Department Care Team Description 05/19/2020 Telephone [facility] Cherie Browne MD Other Cardiothoracic Surgery - [address] [place] [address], [address], [address] [place], [place] [address] [place] [address] [phone] (Wo rk) Social History Tobacco Use [...] Telephone Encounter - Cat Sutherland RN - 05/19/[address] Surgery Update Patient showed up at [facility] for his CBC and the label rewinder turned him away as the patient said I'll wait and have it done in [place] when I have the other blood test done. The other blood test needed is on the day of surgery for a Pre-Op Blood Draw (type and screen). I called the lab and spoke with idania Weeks and she will place a note in the system so that they don't turn him away again. I asked them to call our office at [phone] if there are any questions when the patient arrives. He must have the CBC prior to surgery. I called Nila the CM at his Proivder's office and reviewed above with her. She will call the patient as she works closely with him. P) CBC at [facility]. Call CT Surgery WHILE PATIENT IS THERE IF ANY QUESTIONS. elephone Encounter - Alma Dhillon - 05/19/2020 1244 EDT Please call case management associate at PCP Office, Nila. Patient went to [facility] to have pre-op blood draw, as he was directed. [facility] saw the order for blood bank draw, and would not draw any bloodwork for thepatient. documented in this encounter Plan of Treatment Not on filedocumented as of this encounter Visit Diagnoses Not on filedocumented in this encounter Care Teams Policy Writer Sales Relationship Specialty Start Date End Date Katia Stone PA-C PCP - General 05/02/17 [address] [place] [place] [phone] documented as of this encounter
--- OUTSIDE RECORDS SUMMARY | 2021-12-14 00:27 | XMS_ITS | Encounter Summary ---
:1950 Author Organization [facility] Address [address] [place] [address] Care Team Providers Name Role Phone Katia Stone PA-C Primary Care Provider Encounter Details Date Type Department Care Team Description 08/09/2020 Results Only [facility] - Ester Valerio Imaging [facility] MD Annemarie Radiology Results [address] [facility] [address] [place], [place] [address] [place] [phone] (Wo rk) Social History Tobacco Use Types [...] 2 VIEWS (08/09/2020 8:33 EDT) Specimen Narrative [facility] RADIOLOGY - 2020 16:38 EDT ?[facility]: [facility] ?[address] ?[place] [address] ?Diagnostic Imaging Report ? Signed ? Patient Name:DAVID FARFAN ? Date of :1950 ?MR Number:[id number] ? Age:69 ?Sex:M ? Category: CR ?Date [...] Procedure Note Poncho Erickson [facility] [address] [address] Diagnostic Imaging Report Signed Patient Name:DAVID FARFAN r:[id number] Date of :1950 MR Number:[id number] Age:69 Sex:M Category: CR Date of Exam:08/09/20 Procedure: CR: Abd; 2 Views Accession: [id number] Ordering Physician: Ester Valerio MD atient CC: [...] filedocumented in this encounter Care Teams Director Packaging Relationship Specialty Start Date End Date Katia Stone PA-C PCP - General 05/02/17 [address] [place] [phone] documented as of this encounter
--- OUTSIDE RECORDS SUMMARY | 2021-12-14 00:27 | XMS_ITS | Encounter Summary ---
:1950 Author Organization [facility] Address [address] [place] [address] Care Team Providers Name Role Phone Katia [...] on filedocumented in this encounter Care Teams Training Manager Relationship Specialty Start Date End Date Katia Stone PA-C PCP - General 05/02/[address] [place] [phone] documented as of this encounter
--- OUTSIDE RECORDS SUMMARY | 2021-12-14 00:27 | XMS_ITS | Encounter Summary ---
:1950 Author Organization [facility] Address [address] [place] [address] Care Team Providers Name Role Phone Katia Stone PA-C Primary Care Provider Encounter Details Date Type Department Care Team Description 08/13/2020 Lab Requisition [facility] Outr Resulting Lab, Pathology & Laboratory Provider [facility] [address] [place] [address] Social History Tobacco Use Types [...] Sig nature Parasite No ova and parasites [facility] seen. LABORATORY SERVICES Specimen Feces - Specimen from rectum (specimen) Narrative [facility] SERVICES - 08/14/2020 11:44 EDT (If Cryptosporidium, Cyclospora, or Micr osporidium are suspected, specific tests must be requested.) Single negative specimen does not rule out the possibility of a parasitic infection. Performing Organization Address City/State/ZIP Code Phon e Number [facility] [address] [place] [address] SERVICES documented in this encounter Visit Diagnoses Not on filedocumented in this encounter Care Teams Ballpoint Pen Cartridge Tester Relationship Specialty Start Date End Date Katia Stone PA-C PCP - General 05/02/17 [address] [place] [phone] documented as of this encounter
--- OUTSIDE RECORDS SUMMARY | 2021-12-14 00:27 | XMS_ITS | Encounter Summary ---
:1950 Author Organization [facility] Address [address] [place] [address] Care Team Providers Name Role Phone Katia Stone PA-C Primary Care Provider Reason for Visit Reason Onset Date Comments Coordination Of Care 04/19/2020 Returning Call 04/20/2020 Encounter Details Date Type Department Care Team Description 04/19/2020 Telephone [facility] Tony Rosenberg [facility]; Cardiology - Chaitanya Jasmine MD Returning Call [address] [place], [place] Suite [facility] [id number] [place] [address] [place] [address] Social History Tobacco Use Types Packs/Day [...] Adam Ordoñez - 04/20/2020 1508 EST Patient's director of casework department returning call to Belinda. Please call. elephone Encounter - Belinda Falk RN - 04/20/2020 1457 EST Call placed to director of casework department regarding patient unable to reach by phone. Message left on voice mail to call office back with call back number [phone]. Telephone Encounter - Conner Mccall - 04/19/2020 1118 EST Reason for Call: Coordination Of Care Summary/Symptoms: Maru patients Machinery Rigger reaching out to get more information on the appt Dr Rosenberg talked about for patient's pacemaker. Dr Rosenberg was going to have an appt for the patient with another cardio surgeon Maru states. Maru was going to call [facility] but stated they always ask Chaitanya. Please call back to discuss Conner Mccall 04/19/2020 11:19 documented in this encounter Plan of Treatment Not on filedocumented as of this encounter Visit Diagnoses Not on filedocumented in this encounter Care Teams Meat Process Worker Relationship Specialty Start Date End Date Katia Stone PA-C PCP - General 05/02/17 [address] [place] [phone] documented as of this encounter
--- OUTSIDE RECORDS SUMMARY | 2021-12-14 00:27 | XMS_ITS | Encounter Summary ---
:1950 Author Organization [facility] Address [address] [place] [address] Care Team Providers Name Role Phone Katia Stone PA-C Primary Care Provider Reason for Visit Reason Onset Date Comments Appointment Related 06/22/2020 Encounter Details Date Type Department Care Team Description 06/22/2020 Telephone [facility] Cherie Browne MD Appointment Related Cardiothoracic Surgery - [address] [place] [address], [address], [address] [place], [place] [address] [place] [address] [phone] (Wo rk) Social History Tobacco Use [...] on filedocumented in this encounter Care Teams Campus Monitor Relationship Specialty Start Date End Date Katia Stone PA-C PCP - General 05/02/17 [address] [place] [phone] documented as of this encounter
--- OUTSIDE RECORDS SUMMARY | 2021-12-14 00:27 | XMS_ITS | Encounter Summary ---
:1950 Author Organization [facility] Address [address] [place] [address] Care Team Providers Name Role Phone Katia Stone PA-C Primary Care Provider Encounter Details Date Type Department Care Team Description 05/16/[address] [facility] Ja Browne MD Infectious Disease - [address] [facility], [address], [address] [place], [place] [address] [place] [phone] (Wo rk) Social History Tobacco Use Types [...] as of this encounter Progress Notes Missy Thomson RN - 05/16/2020 0947 EDT Upon entering the [facility], patient answered yes to one of the [...] patient sent to appointment. Kem Thomson RN, [id number] documented in this encounter Plan of Treatment Not on filedocumented as of this encounter Visit Diagnoses Not on filedocumented in this encounter Care Teams Engineer Technical Staff Relationship Specialty Start Date End Date Katia Stone PA-C PCP - General 05/02/17 [address] [place] [phone] documented as of this encounter
--- OUTSIDE RECORDS SUMMARY | 2021-12-14 00:28 | XMS_ITS | Encounter Summary ---
:1950 Author Organization [facility] Address [address] [place] [address] Care Team Providers Name Role Phone Katia Stone PA-C Primary Care Provider Reason for Visit Reason Onset Date Comments Update 06/12/2017 on admission to [facility] Encounter Details Date Type Department Care Team Description 06/12/2017 Telephone [facility] Tony Rosenberg Update (on admission to Cardiology - Chaitanya Jasmine MD [facility]) [address] [place] [address] [place] [address] Social History Tobacco Use Types [...] EDT [facility] ele[facility] Encounter - Belinda Falk RN - [...] Reason for Call: Update (on admission to [facility]) Summary/Symptoms: Yessica would like to speak to the nurse regarding this patient being admitted to [facility] today at Dr. Paola Gonzáles 06/12/2017 9:24 documented in this encounter Plan of Treatment Not on filedocumented as of this encounter Visit Diagnoses Not on filedocumented in this encounter Care Teams Gas Torch Solderer Relationship Specialty Start Date End Date Katia Stone, MINGO PCP - General 05/02/17 [address] [place] [phone] documented as of this encounter
--- OUTSIDE RECORDS SUMMARY | 2021-12-14 00:28 | XMS_ITS | Encounter Summary ---
:1950 Author Organization [facility] Address [address] [place] [address] Care Team Providers Name Role Phone Katia Stone PA-C Primary Care Provider Encounter Details Date Type Department Care Team Description 08/20/2018 Historical Results [facility] - Giselle Stone, Only [facility] [address] [place], [place] [address] [phone] Social History Tobacco Use Types Packs/Day Years [...] 11:48 Results fo r this COMBO,FASTING - [facility] EDT procedur e are in the results section. documented in this encounter Results (ABNORMAL) HEPATIC & CMP COMBO,FASTING - [facility] (08/20/2018 11:48 EDT) Sodium 121 (L) 136 - 145 [facility] Potassium 4.7 3.5 - 5.1 [facility] Chloride 87 (L) 96 - 107 [facility] CO2 Total 28.2 21 - 32 [facility] Anion Gap 5.8 [facility] BUN 7 7 - 25 [facility] Creatinine 0.59 (L) 0.7 - 1.30 [facility] Estimated GFR >60 >60 [facility] Comment: [facility] EGFR UNITS: mL/min/1.73 m 2 CKD-EPI Equation used to calculate. Glucose 88 FASTIN-99 [facility] Calcium 8.6 8.5 - 10.5 [facility] CALCIUM,CORRECTED - 9.0 8.5 - 10.5 [facility] BILIRUBIN - [facility] 0.60 0.00 - 1.00 [facility] AST 41 (H) 15 - 37 [facility] ALT 47 12 - 78 [facility] Alkaline Phosphatase 86 46 - 116 [facility] Total Protein 7.5 6.4 - 8.2 [facility] Albumin 3.5 3.4 - 5.0 [facility] GLOBULIN - [facility] 4.0 [facility] ALBUMIN/GLOBULIN 0.8 [facility] RATIO - [facility] Specimen Performing Organization Address City/State/ZIP Code Phon e Number [facility] [address] [place] [address] [facility] documented in this encounter Visit Diagnoses Not on filedocumented in this encounter Care Teams Public Accountant Relationship Specialty Start Date End Date Katia Stone PA-C PCP - General 05/02/[address] [facility] [place] [id number] documented as of this encounter
--- OUTSIDE RECORDS SUMMARY | 2021-12-14 00:28 | XMS_ITS | Encounter Summary ---
:1950 Author Organization [facility] Address [address] [place] [address] Care Team Providers Name Role Phone Katia Stone PA-C Primary Care Provider Reason for Referral Consult (Routine) - New Request Specialty Diagnoses / Procedures Referred By Contact Refer red To Contact Diagnoses Heart failure, unspecified HF chronicity, unspecified heart failure type (HCC- CMS) (HCC) Subacute effusive constrictive pericarditis Michael Pratt MD [address] [place] [id number] Referral ID Status Reason Start Expiration Visits Visits Date Date Requested Authorized [id number] New Request Specialty 06/16/2017 1 1 Services Required Question Answer Reason for Request: f/u constrictive pericarditi s Expected Discharge Date (Inpatient Only): 06/16/2017 Practice Site (External Referral Only): [facility] Comments With Dr. Torres ollow Up (3 - 10 Business Days) - Receiving Office to Obtain Authorization Specialty Diagnoses / Procedures Referred By Contact Refer red To Contact Diagnoses Heart failure, unspecified HF chronicity, unspecified heart failure type (HCC- CMS) (HCC) Subacute effusive constrictive pericarditis Bg Atwood MD [address] [facility] 1 [place] [address] Referral ID Status Reason Start Expiration Visits Visits Date Date Requested Authorized [id number] Receiving Office Continuity of 1 1 to [...] Subacute effusive constrictive pericarditis Bg Atwood, - [address] [facility], [facility] [address] [address] [place] [address] Referral ID Status Reason Start Expiration Visits Visits Date Date Requested Authorized [id number] New Request Specialty 06/16/2017 1 1 Services Required Question Answer I certify that this patient is under my 06/16/2017 care and that I, or another Medicare allowed practitioner (DO CHAMP, PACHECO) working with me, had a nfdr-xo-jwql encounter with this patient on this date: I further certify that the mbou-ov-fcai Yes encounter was in whole or in [...] taxing effort: Skilled Care Requested Nursing asessment half-way assessment needed related Response to new or changed medication to this encounter: Expected Discharge Date (Inpatient Only): 06/16/2017 Encounter Details Date Type Department Care Team Description 06/12/2017 - [facility] Nithya Rand MD PhD [address] [phone] Heart failure, unspecified HF chronicity , unspecified heart failure type (HCC-CMS) (Primary Dx); 06/16/2017 Encounter Cardiac/Telemetry Bg Atwood MD [address] [phone] Subacute effusive constrictive pericardi tis Unit Tony Rosenberg MD [address] [place] [address] [place] [phone] [address] [place], [place] [id number] Social History Tobacco Use Types Packs/Day Years [...] unspecified HF chronicity, unspecified heart failure type ([facility]) 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 Heart failure ([facility]) 06/12/2017 Resolved Hospital Problems Diagnosis Date Noted [...] orthopnea on a follow up exam at [facility]. He was transferred to [facility] due to concern for subacute constrictive [...] Component Value Units Date/Time Bacterial Culture/Smear, Fluid [[id number]] Collected: 06/13/17 0826 Lab Status: Preliminary result Specimen: FOSMIC from Pleural Fluid Updated: 06/15/17 07 Gram Smear Result Polys present No bacteria seen Result No growth Bacterial Culture, Blood [[id number]] Collected: 06/12/172246 Lab Status: In process Specimen: Blood Updated: 06/12/172320 Bacterial Culture, Blood [[id number]] Collected: 06/12/172239 Lab Status: In process Specimen: [...] 05/01/2017 Discharge Follow Up Appointments Scheduled with [facility] Upcoming Appointments Aug 06, 2017 15:20 EDT Follow Up Return with Tony Rosenberg MD [facility] Cardiology [facility] (--) [address] [place] [address] Appointments Outside of [facility] We Will Schedule Follow-up appointments and procedures Amb Consult/Follow Up Cardiology With Dr. Torres Reason for Request: f/u constrictive pericarditis Expected Discharge Date (Inpatient Only): 06/16/2017 Practice Site (External Referral Only): [facility] Authorizing Provider: Michael Pratt MD Amb Consult/Follow Up Primary Care Physician Reason for Request: f/u hospitalization for constrictive pericarditis Expected Discharge Date (Inpatient Only): 06/16/2017 Authorizing Provider: Bg Atwood MD Home Health Agency-Other I certify that this patient is under my care and that I, or another Medicare authorized non-physician practitioner (PA or FUR FINISHER SEAMSTRESS) or resident working with me, had a myuv-ne-kmtd encounter with this patient on this date: 06/16/2017 I further certify that the fyiw-nw-vllc encounter was in whole or in part related to the reason the patient needs home health care.: Yes The patient has had a faxj-jx-kckx visit by me or one of my [...] and ambulation Skilled Care Requested: Nursing asessment half-way assessment needed related to this encounter: Response to new or changed medication Expected Discharge Date (Inpatient Only): 06/16/2017 Authorizing Provider: Bg Atwood MD Additional Information: Please follow up at [facility] with Dr. Tony Rosenberg on August 06, 2017 at 3:20 pm. If you have questions please call [phone]. Please follow up with your primary care physician, Katia Mccallum, on June 17, 2017 at 10:45 am. If you have any questions please call [phone]. Studies We Will Schedule Appointments We Recommend but have not been Scheduled None Michael Pratt MD 06/16/2017 15:18 I evaluated the patient and agree with the discharge summary as outlined above by Dr. Pratt. Mr. Farfan was feeling much better today. 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 BG ATWOOD MD Attending Bank Sales And Service Manager [facility] documented in this encounter Discharge Instructions AppointmentsDesi Thomas - 06/16/2017 12:01 EDT Please follow up at [facility] with Dr. Tony Rosenberg on August 06, 2017 at 3:20 pm. If you have questions please call [phone]. Please follow up with your primary care physician, Katia Mccallum, on June 17, 2017 at 10:45 am. If you have any questions please call [phone]. Discharge Instr - Other Melida Mas RN [...] through Care Everywhere. HEART FAILURE: AVOIDING TRIGGERS (CHINESE)documented in this encounter Medications at Time of [...] (10) 07/15-07/28; 5mg (2 of 10) 07/29-08/04 torsemide (DEMADEX) 20 mg Take 2 Tabs by 60 Tab 2 2017 tablet mouth daily. documented as of this encounter Ordered Prescriptions Prescription Sig Dispensed Refills Start Date End Date predniSONE (DELTASONE) 10 Take 30mg (20+10) 32 Tab 0 mg tablet 06/17-06/30; 20mg (20) 07/01-07/14; 10mg (10) 07/15-07/28; 5mg (2 of 10) 07/29-08/04 predniSONE (DELTASONE) 20 Take 30mg (20+10) 28 Tab 0 mg tablet 06/17-06/30; 20mg (20) 07/01-07/14; 10mg (10) 07/15-07/28; 5mg (2 of 10) 07/29-08/04 metoprolol (LOPRESSOR) 25 Take 1 Tab by mouth 60 Tab 3 0 06/16/2017 mg tablet 2 times daily. documented in this encounter Discharge Disposition Disposition Code Departure Means Destination Home-Health Care [facility] documented in this encounter Progress Notes Desi Villatoro, RN - 06/16/2017 1657 EDT CM DISCHARGE NOTE: Pt was discharged home with Home Health Services. D/C Summary was faxed to his Machine Splitter at Dr. Mccallum's office. Desi Villatoro, RN #[id number] Tej Crawford MD - 06/15/2017 [...] active heart failure? No Assessment/Plan Assessment/Plan David Juan Ede??is a 66 y.o.??male??who presents as a transfer for pleural effusions in the setting of worsening cough, dyspnea, and orthopnea likely due to pericarditis. ?? 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 - Colchicine 0.6mg BID - Prednisone 40mg daily with taper in near future - CONSULTING TECHNICAL MANAGER torsemide 40mg daily Hypokalemia/Hypomagnesemia -replete as needed [...] catheterization for tomorrow. BG ATWOOD MD Attending Bank Sales And Service Manager [facility] - 06/14/2017 0646 EDT [...] daily with taper in near future - CONSULTING TECHNICAL MANAGER torsemide 40mg daily Pleural Effusions: Associated with [...] not lie flat. BG ATWOOD MD Attending Bank Sales And Service Manager [facility] - 06/13/2017 1351 EDT [...] into our system or repeat echo - CONSULTING TECHNICAL MANAGER torsemide 40mg daily - Medical management pending [...] appetite. 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 O/ wt-100.7 kg Prior wt-~108 kg(05/24/17) Ht-180.3 [...] to d/c. Magalis Berger RD, CD X/cover #[id number] YTAmeena Teixeira - 06/13/2017 1159 EDT Initial Case Management/Social Work Assessment and Discharge Plan/Readmission Risk Assessment REASON FOR ADMISSION: Heart failure ([facility]) Patient understands reason for admission: Yes PATIENT CONTACT INFO VERIFIED: Yes PATIENT ADDRESS VERIFIED: Yes (David is staying with his son Mo temporarily in [place]. He did not know the address) LIVING [...] his sons have been driving him) CULTURAL, YAZDANISM and/or LANGUAGE factors affecting health care/discharge planning: [...] Health Services: Nurse visit DME Provider: Pharmacy: [facility] - [address] - [place], [place] - [address] [place] [id number] [facility] ([facility]) - [facility] [place] - [address] [facility] [address] [facility] [address] Home Health: [facility] Other: Other (enter in comments) (he has a clinical care coordinator through [facility]) POST HOSPITAL TRANSITION PLAN: Likely Dc to his son's house with continuation of HH RN services. He reports that he has only been drinking 1-2 beers/day. He denied any concern over his ETOH use. AMEENA TEIXEIRA 06/13/2017 11:59 For Ivelisse Rueda Desi Singh, TISH - 06/13/2017 0923 EDT 06/13: Received a call from Yessica Card at [facility]. She is the patient's Machine Splitter. I've faxed patient's H&P to her and will keep her up to date on patient's progress and projected d/c. Yessica Card, Machine Splitter P: [phone] F: [phone] Desi Villatoro RN [facility] #[id number] Renetta Saenz RN - 06/13/2017 0823 [...] fluid drained from left posterior chest by TK. See MD note for procedure details. Pt tolerated procedure well. Report given to RN. Pt transferred back to in stable condition with RN. documented in this encounter H&P Notes Denilson Shannon MD - 06/12/2017 1165 EDT Cardiology Admitting H&P Admit Date: 06/12/2017 [...] follow up performed by Dr. Rosenberg in [place] (has now completed 14 days of ibuprofen). After seeing Dr. Rosenberg yesterday and having an echo performed, he was noted to have worsening dyspnea, orthopnea, and increasing pleural effusions. He denies chest pain, diaphoresis, arm/jaw pain, wheezing, nausea/vomiting, change in bowels, or change in urination. He notes an ongoing cough with worsening abdominal pain from coughing so frequently. He was transferred to [facility] for consideration of thoracentesis [...] tomorrow (either bedside or IR guided) - CONSULTING TECHNICAL MANAGER torsemide 40mg daily - NPO after midnight [...] Addendum 66 yo man who lives in [facility] and follows with Dr. Rosenberg with a [...] - team attempted to obtain echo from [facility] however unable to do so until AM - if no other etiology found consider switching to colchicine + prednisone - blood cultures Denilson Shannon MD Reducing Salon Attendant Pager [phone] 06/12/2017 21:56 Associated attestation - Bg Atwood [...] thoracentesis as well. BG ATWOOD MD Attending Bank Sales And Service Manager [facility] Procedure Notes Randy Ireland PA-C - 06/13/2017 0839 EDT IR Procedure Note Procedure: Requested U/S guided bilateral thoracentesis Date Performed: 06/13/2017 Radiologist/Field Organizer(s):MD Andrea /MINGO Ireland Sedation/Anesthesia: local Time Out: [...] independently without difficulty. Dischargehome orders received. Action: [facility] called and report given. They are familiar with this pt. Tele and PIV removed. Pt dressed independently. Discharge paperwork reviewed with pt. Verbalizes good understanding. Response: awaiting ride for discharge home. Omayra Farley RN 06/16/2017 15:21 lan of Care - Diamond Manzano RN - 06/16/2017 0033 [...] with patient.Informed pt that he will have [facility] on Friday. R: Pt verbalized understanding of his plan of care. lan of Care - Mila Mcallister RN - 06/14/2017 7808 EDT Problem: Daily Care Plan Goals Goal: [...] states he is fine. Voiding large amounts. CTHallie MCALLISTER RN 06/14/2017 15:51 lan of Care [...] Care - Michelle Godinez RN - 06/13/2017 1639 EDT Problem: High Fall Risk: Goal: Patient [...] to room/call garza system. Admission database completed. wellness program manager applied. Plan of care reviewed to include [...] nature Magnesium 1.9 1.7 - 2.8 mg/dl [facility] Specimen Blood specimen (specimen) - Blood Performing Organization Address City/State/ZIP Code Phon e Number [facility] [address] [place] [address] SERVICES (ABNORMAL) ELECTROLYTES (06/16/2017 5:39 EDT) Pathologist Sig nature Sodium 133 (L) 136 - 145 mEq/L [facility] Potassium 3.7 3.5 - 5.0 mEq/L [facility] Chloride 90 (L) 96 - 110 mEq/L [facility] ORY SERVICES CO2 33 (H) 22 - 32 mEq/L [facility] RY SERVICES Specimen Blood specimen (specimen) - Blood Performing Organization Address [facility] Phon e Number [facility] [address] [place] [phone] SERVICES (ABNORMAL) HEMAGRAM (06/16/2017 5:39 EDT) Pathologist Sig nature WBC 10.81 (H) 4.0 - 10.4 K/cmm [facility] RBC 3.83 (L) 4.36 - 5.78 M/cmm [facility] Hemoglobin 12.4 (L) 13.8 - 17.3 gm/dl [facility] HCT 35.6 (L) 39.5 - 50.2 % [facility] MCV 93 81 - 95 fl [facility] MCH 32.4 27.6 - 33.0 pg [facility] MCHC 34.8 32.8 - 36.4 gm/dl [facility] RDW-CV 11.9 <14.2 % [facility] RDW-SD 40.8 <46.0 fl [facility] PLT 204 141 - 377 K/cmm [facility] MPV 12.4 9.5 - 12.7 fl [facility] Specimen Blood specimen (specimen) - Blood Performing Organization Address City/[facility]/ZIP Code Phon e Number [facility] [address] [place] [address] SERVICES CREATININE (06/16/2017 5:39 EDT) Creatinine 0.67 0.66 - 1.25 [facility] mg/dl LABORATORY SERVICES GFR, Calculated 100 >60 [facility] Comment: ml/min/1.73m2 LABORATORY eGFR calculated using CKD-EPI equation for SERVICES non Americans. Multiply eGFR by 1.16 for Americans. Specimen Blood specimen (specimen) - Blood Performing Organization Address [facility]/ZIP [facility] Phon e Number [facility] [address] [place] [address] SERVICES MAGNESIUM (06/15/2017 5:31 EDT) Pathologist Sig nature Magnesium 1.7 1.7 - 2.8 mg/dl [facility] Specimen Blood specimen (specimen) - Blood Performing Organization Address [facility] Phon e Number [facility] [address] [place] [address] SERVICES (ABNORMAL) ELECTROLYTES (06/15/2017 5:31 EDT) Pathologist Sig nature Sodium 133 (L) 136 - 145 mEq/L [facility] Potassium 3.4 (L) 3.5 - 5.0 mEq/L [facility] Chloride 90 (L) 96 - 110 mEq/L [facility] ORY SERVICES CO2 34 (H) 22 - 32 mEq/L [facility] RY SERVICES Specimen Blood specimen (specimen) - Blood Performing Organization Address [facility] Phon e Number [facility] [address] [place] [address] SERVICES (ABNORMAL) HEMAGRAM (06/15/2017 5:31 EDT) Pathologist Sig nature WBC 11.63 (H) 4.0 - 10.4 K/cmm [facility] SERVICES RBC 3.51 (L) 4.36 - 5.78 M/cmm [facility] Hemoglobin 11.4 (L) 13.8 - 17.3 gm/dl [facility] HCT 33.1 (L) 39.5 - 50.2 % [facility] SERVICES MCV 94 81 - 95 fl [facility] MCH 32.5 27.6 - 33.0 pg [facility] MCHC 34.4 32.8 - 36.4 gm/dl [facility] SERVICES RDW-CV 12.0 <14.2 % [facility] SERVICES RDW-SD 41.4 <46.0 fl [facility] SERVICES PLT 240 141 - 377 K/cmm [facility] MPV 11.1 9.5 - 12.7 fl [facility] SERVICES Specimen Blood specimen (specimen) - Blood Performing Organization Address City/[facility]/ZIP Code Phon e Number [facility] [address] [place] [address] SERVICES (ABNORMAL) CREATININE (06/15/2017 5:31 EDT) Creatinine 0.65 (L) 0.66 - 1.25 [facility] mg/dl LABORATORY SERVICES GFR, Calculated 101 >60 [facility] Comment: ml/min/1.73m2 LABORATORY eGFR calculated using CKD-EPI equation for SERVICES non Americans. Multiply eGFR by 1.16 for Americans. Specimen Blood specimen (specimen) - Blood Performing Organization Address City/[facility] Phon e Number [facility] [address] [place] [address] SERVICES INPATIENT ADD-ON (06/14/2017 8:00 EDT) Tests to be added PLEASE ADD ON [facility] DIFFERENTIAL TO CBC LABORATORY SERVICES Number for [id number] [facility] problems LABORATORY SERVICES Accession number [id number] [facility] Specimen Other Performing Organization Address [facility] Phon e Number [facility] [address] [place] [address] SERVICES (ABNORMAL) DIFFERENTIAL (06/14/2017 5:32 EDT) Pathologist Sig nature Neutrophils 72.2 % [facility] Lymphocytes 14.9 % [facility] Monocytes 12.1 % [facility] Eosinophils 0.1 % [facility] Basophils 0.2 % [facility] Immature Grans 0.5 % [facility] ABS Neutrophils 8.96 (H) 2.20 - 8.85 [facility] K/community health LABORATORY SERVICES ABS Lymphs 1.85 1.09 - 3.30 [facility] K/cm LABORATORY SERVICES ABS Monocytes 1.50 (H) 0.1 - 0.8 K/cmm [facility] SERVICES ABS Eosinophils 0.01 (L) 0.03 - 0.61 [facility] K/cm LABORATORY SERVICES ABS Basophils 0.02 0.01 - 0.11 [facility] K/m LABORATORY SERVICES ABS Immature Grans 0.06 0 - 0.06 [facility] Type of Diff: Automated [facility] SERVICES Specimen Blood Performing Organization Address [facility]/ZIP Code Phon e Number [facility] [address] [place] [address] SERVICES MAGNESIUM (06/14/2017 5:32 EDT) Pathologist Sig nature Magnesium 2.0 1.7 - 2.8 mg/dl [facility] Specimen Blood specimen (specimen) - Blood Performing Organization Address [facility] Phon e Number [facility] [address] [place] [address] SERVICES (ABNORMAL) ELECTROLYTES (06/14/2017 5:32 EDT) Pathologist Sig nature Sodium 133 (L) 136 - 145 mEq/L [facility] Potassium 3.6 3.5 - 5.0 mEq/L [facility] Chloride 91 (L) 96 - 110 mEq/L [facility]Y SERVICES CO2 31 22 - 32 mEq/L [facility] SERVICES Specimen Blood specimen (specimen) - Blood Performing Organization Address [facility] Phon e Number [facility] [address] [place] [address] SERVICES (ABNORMAL) HEMAGRAM (06/14/2017 5:32 EDT) Pathologist Sig nature WBC 12.41 (H) 4.0 - 10.4 K/cmm [facility] SERVICES RBC 3.64 (L) 4.36 - 5.78 M/cmm [facility] SERVICES Hemoglobin 11.9 (L) 13.8 - 17.3 gm/dl [facility] SERVICES HCT 33.8 (L) 39.5 - 50.2 % [facility] SERVICES MCV 93 81 - 95 fl [facility] SERVICES MCH 32.7 27.6 - 33.0 pg [facility] MCHC 35.2 32.8 - 36.4 gm/dl [facility] SERVICES RDW-CV 11.9 <14.2 % [facility] SERVICES RDW-SD 40.7 <46.0 fl [facility] SERVICES PLT 243 141 - 377 K/cmm [facility] SERVICES MPV 11.7 9.5 - 12.7 fl [facility] SERVICES Specimen Blood specimen (specimen) - Blood Performing Organization Address [facility] Phon e Number [facility] [address] [place] [address] SERVICES (ABNORMAL) CREATININE (06/14/2017 5:32 EDT) Creatinine 0.60 (L) 0.66 - 1.25 [facility] mg/dl LABORATORY SERVICES GFR, Calculated 105 >60 [facility] Comment: ml/min/1.73m2 LABORATORY eGFR calculated using CKD-EPI equation for SERVICES non Americans. Multiply eGFR by 1.16 for Americans. Specimen Blood specimen (specimen) - Blood Performing Organization Address [facility] Phon e Number [facility] [address] [place] [address] SERVICES INPATIENT ADD-ON (06/13/2017 15:00 EDT) Tests to be added PLEASE ADD ON [facility] HEMATOCRIT TO LABORATORY SERVICES PLEURAL FLUID OBTAINED TODAY (06/13). [place] [id number] [facility] problems LABORATORY SERVICES Accession number [id number]: [facility] Corrected on 06/13 LABORATORY SERVICES AT 1515: Previously reported as [id number] Specimen Other Performing Organization Address [facility] Phon e Number [facility] [address] [place] [address] SERVICES INPATIENT ADD-ON (06/13/2017 15:00 EDT) Tests to be added TOTAL PROTEIN,LDH [facility] [place] [id number] [facility] problems LABORATORY SERVICES Accession number [id number]: [facility] Corrected on 06/13 LABORATORY SERVICES AT 1502: Previously reported as [id number] Specimen Other Performing Organization Address [facility] Phon e Number [facility] [address] [place] [address] CHEST (PE) PROTOCOL W CONTRAST (06/13/2017 10:41 EDT) Anatomical Region Laterality Modality Other Specimen Narrative [facility] - 06/13/2017 11:23 [...] Organization Address City/State/ZIP Code Phon e Number [facility] RAD US DOPPLER LOWER EXTREMITY VENOUS BILATERAL (06/13/2017 10:20 EDT) Anatomical Region Laterality Modality Other Specimen Narrative [facility] - 06/13/2017 11:50 [...] Organization Address City/State/ZIP Code Phon e Number [facility] IR THORACENTESIS (06/13/2017 8:45 EDT) Anatomical Region Laterality Modality Other Specimen Narrative [facility] - 06/13/2017 10:51 [...] sterile technique and under local anesthesia, a 8-Trinidadian thoracentesis catheter was advanced into the left [...] sterile technique and under local anesthesia, a 8-Trinidadian thoracentesis catheter was advanced into the left [...] the lab for analysis. Performing Organization Address [facility]/ZIP Code Phon e Number [facility] HEMATOCRIT, BODY FLUID (06/13/2017 8:26 EDT) Pathologist Sig nature Hematocrit,Body Fld <3.0 % [facility] SERVICES Specimen Pleural Fluid Performing Organization Address [facility] Phon e Number [facility] [address] [place] [address] SERVICES FLUID DIFFERENTIAL (06/13/2017 8:26 EDT) Neutrophils, Fluid 33 % [facility] SERVICES Lymphocytes, Fluid 50 % [facility] SERVICES Maury/Macro, Fluid 12 % [facility] SERVICES Mesothelial 5 % [facility] SERVICES Fluid Comment Rev'd by [facility] Pathologist LABORATORY SERVICES Specimen Pleural Fluid Performing Organization Address [facility] Phon e Number [facility] [address] [place] [address] SERVICES PH, PLEURAL FLUID (06/13/2017 8:26 EDT) Pleural Fluid pH 7.42 [facility] Comment: LABORATORY SERVICES Reference range: Pleural fluid Exudate: 7.30-7.45 Transudate: 7.40-7.55 A pleural fluid pH <7.30 is generally associated with a complicated parapneumonic effusion, empyema, connective tissue disease of the pleura or malignant effusion. Specimen Pleural Fluid Performing Organization Address [facility] Phon e Number [facility] [address] [place] [address] SERVICES BACTERIAL CULTURE/SMEAR, FLUID (06/13/2017 8:26 EDT) Gram Smear Result Polys [facility] present LABORATORY SERVICES Gram Smear Result No bacteria seen [facility] SERVICES Result No growth [facility] SERVICES Specimen FOSMIC - Pleural Fluid Performing Organization Address City/State/ZIP Code Phon e Number [facility] [address] [place] [address] SERVICES FLUID CELL COUNT (06/13/2017 8:26 EDT) RBC, Fluid 44,000 /cmm [facility] SERVICES Nucleated Cells 11,202 /cmm [facility] SERVICES Fluid Comment MODERATELY BLOODY, [facility] MODERATELY CLOUDY LABORATORY SERVICES Specimen Body fluid (substance) - Pleural Fluid Performing Organization Address City/[facility]/ZIP Code Phon e Number [facility] [address] [place] [address] SERVICES TOTAL PROTEIN, FLUID (06/13/2017 8:26 EDT) Protein, Fluid 5.2 g/dl [facility] Comment: LABORATORY SERVICES Reference Range: Pleural fluid specimen (specimen) Exudate > 3.0 g/dl Pleural fluid specimen (specimen) Transudate <3.0 g/dl Peritoneal fluid sample (specimen) Serum ascites to albumin gradient (SAGG) superior to total protein content in differentiating causes of effusion. Pleural fluid specimen (specimen) Specimen FOSCH - Pleural Fluid Performing Organization Address City/[facility]/ZIP Code Phon e Number [facility] [address] [place] [address] SERVICES LDH, FLUID (06/13/2017 8:26 EDT) Pathologist Sig nature LDH, Fluid 654 U/L [facility] Comment: LABORATORY SERVICES Pleural fluid specimen (specimen) Reference Range: Suggestive of exudate if fluid cholesterol is > 45 mg/dl or fluid LDH is greater than 0.45 times the upper limit of normal serum LDH levels. Peritoneal fluid sample (specimen) No reference range available Pleural fluid specimen (specimen) Specimen FOSCH - Pleural Fluid Performing Organization Address City/[facility]/ZIP Code Phon e Number [facility] [address] [place] [address] SERVICES GLUCOSE, FLUID (06/13/2017 8:26 EDT) Glucose, Fluid 88 mg/dl [facility] Comment: LABORATORY SERVICES Reference Range: Pleural fluid specimen (specimen) Low glucose is accepted as <60 mg/dl or pleural fluid to serum glucose ratio of <0.5. Peritoneal fluid sample (specimen) Low glucose is generally accepted as <50 mg/dl. Pleural fluid specimen (specimen) Specimen FOSCH - Pleural Fluid Performing Organization Address [facility] Phon e Number [facility] [address] [place] [address] SERVICES CREATININE, FLUID (06/13/2017 8:26 EDT) Creatinine, Fluid 0.57 mg/dl [facility] Comment: LABORATORY SERVICES Reference Range: Pleural fluid specimen (specimen) No reference range available Peritoneal fluid sample (specimen) No reference range available Drain device specimen (specimen) No reference range available Pleural fluid specimen (specimen) Specimen FOSCH - Pleural Fluid Performing Organization Address [facility] [address] [place] [address] SERVICES PROTEIN, TOTAL (06/13/2017 6:08 EDT) Pathologist Sig nature Total Protein 7.2 6.3 - 8.2 g/dl [facility] SERVICES Specimen Blood Performing Organization Address [facility] Phon [facility] [address] [place] [address] SERVICES LDH (06/13/2017 6:08 EDT) Pathologist Sig nature LDH 428 313 - 618 U/L [facility] RY SERVICES Specimen Blood Performing Organization Address [facility] Phon e [facility] [address] [place] [address] SERVICES (ABNORMAL) MAGNESIUM (06/13/2017 6:08 EDT) Pathologist Sig nature Magnesium 1.4 (L) 1.7 - 2.8 mg/dl [facility] TORY SERVICES Specimen Blood specimen (specimen) - Blood Performing Organization Address [facility] [address] [place] [address] SERVICES (ABNORMAL) ELECTROLYTES (06/13/2017 6:08 EDT) Pathologist Sig nature Sodium 132 (L) 136 - 145 mEq/L [facility] SERVICES Potassium 3.6 3.5 - 5.0 mEq/L [facility] T[facility] SERVICES Chloride 91 (L) 96 - 110 mEq/L [facility]AT ORY SERVICES CO2 29 22 - 32 mEq/L [facility] RY SERVICES Specimen Blood specimen (specimen) - Blood Performing Organization Address City/State/ZIP Code Phon e Number [facility] [address] [place] [phone] SERVICES (ABNORMAL) HEMAGRAM (06/13/2017 6:08 EDT) Pathologist Sig nature WBC 9.97 4.0 - 10.4 K/cmm [facility] SERVICES RBC 3.76 (L) 4.36 - 5.78 M/cmm [facility] SERVICES Hemoglobin 12.2 (L) 13.8 - 17.3 gm/dl [facility] SERVICES HCT 34.9 (L) 39.5 - 50.2 % [facility] SERVICES MCV 93 81 - 95 fl [facility] SERVICES MCH 32.4 27.6 - 33.0 pg [facility] SERVICES MCHC 35.0 32.8 - 36.4 gm/dl [facility] SERVICES RDW-CV 11.8 <14.2 % [facility] SERVICES RDW-SD 40.4 <46.0 fl [facility] SERVICES PLT 223 141 - 377 K/[facility] LABORATORY SERVICES MPV 11.9 9.5 - 12.7 fl [facility] SERVICES Specimen Blood specimen (specimen) - Blood Performing Organization Address City/[facility]/ZIP Code Phon e Number [facility] [address] [place] [address] SERVICES (ABNORMAL) CREATININE (06/13/2017 6:08 EDT) Creatinine 0.58 (L) 0.66 - 1.25 [facility] mg/dl LABORATORY SERVICES GFR, Calculated 106 >60 [facility] Comment: ml/min/1.73m2 LABORATORY eGFR calculated using CKD-EPI equation for SERVICES non Americans. Multiply eGFR by 1.16 for Americans. Specimen Blood specimen (specimen) - Blood Performing Organization Address City/State/ZIP Code Phon e Number [facility] [address] [place] [address] SERVICES (ABNORMAL) PROTIME (06/13/2017 6:08 EDT) Pro Time 14.0 (H)Comment: NOTE 10.3 - 13.4 [facility] NEW REFERENCE RANGE secs LABORATORY SERVICE S OF APR 03 2017 I.N.R. 1.2 (H) 0.9 - 1.1 [facility] Comment: Ratio LABORATORY SERVICES Moderate Intensity Coumadin INR = 2.0-3.0 Adjustments in anticoagulant therapy dose should be based upon the INR and NOT the Pro Time. Specimen Blood specimen (specimen) - Blood Performing Organization Address [facility] Phon e Number [facility] [address] [place] [address] SERVICES BACTERIAL CULTURE, BLOOD (06/12/2017 22:47 EDT) Pathologist Sig nature Result No growth [facility] LABORATOR Y SERVICES Specimen Blood specimen (specimen) - Blood Performing Organization Address [facility] Phon e Number [facility] [address] [place] [address] SERVICES (ABNORMAL) D-DIMER (06/12/2017 22:40 EDT) Pathologist Sig nature D-Dimer 724 (H) <230 ng/mL [facility] Comment: LABORATORY SERVICES CUTOFF VALUE FOR THE EXCLUSION OF DVT and PE: 230 ng/m L D-dimer units Any use of the age-adjusted cutoff value is a post-analytic modification of this FDA-approved test and is considered off-label use of the test result. [facility] laboratory does not have literature to support the validity of an age-adjusted cutoff for our specific assay. Specimen Blood specimen (specimen) - Blood Performing Organization Address [facility] Phon e Number [facility] [address] [place] [address] SERVICES BACTERIAL CULTURE, BLOOD (06/12/2017 22:40 EDT) Pathologist Sig nature Result No growth [facility] LABORATOR Y SERVICES Specimen Blood specimen (specimen) - Blood Performing Organization Address [facility] Phon e Number [facility] [address] [place] [address] SERVICES INPATIENT ADD-ON (06/12/2017 21:30 EDT) Pathologist Sig nature Tests to be added NT PRO BNP [facility] SERVICES Number for problems Not Given [facility] SERVICES Accession number [id number] [facility] SERVICES Specimen Other Performing Organization Address [facility] Phon e Number [facility] [address] [place] [address] SERVICES CHEST PA AND LATERAL (06/12/2017 20:56 EDT) Anatomical Region Laterality Modality Other Specimen Narrative [facility] - 06/12/2017 21:12 [...] Organization Address City/State/ZIP Code Phon e Number [facility] INPATIENT ADD-ON (06/12/2017 19:20 EDT) Tests to be added HIGH SENSITIVITY CRP [facility] [place] [id number] [facility] problems LABORATORY SERVICES Accession number [id number] [facility] SERVICES Specimen Other Performing Organization Address City/State/ZIP Code Phon e Number [facility] [address] [place] [address] SERVICES (ABNORMAL) NT PRO BNP (06/12/2017 18:37 EDT) Pathologist Sig nature NT Pro BNP 1,380 (H) <300 pg/ml [facility] Comment: LABORATORY SERVICES Reference Range: NT-proBNP [...] congestive failure. Specimen Blood Performing Organization Address City/[facility]/ZIP [facility] Phon e Number [facility] [address] [place] [address] SERVICES HIGH SENSITIVITY C-REACTIVE PROTEIN (CARDIOVASCULAR DISEASE) (06/12/2017 18:37 EDT) High Sensitivity 83.3 mg/L [facility] CRP Comment: LABORATORY Reference Range: SERVICES <1.0 mg/L Low risk 1.0-3.0 mg/L Average risk >3.0 mg/L High risk >10.0 mg/L Acute inflammation Specimen Blood Performing Organization Address City/State/ZIP Code Phon e Number [facility] [address] [place] [address] SERVICES TROPONIN I (06/12/2017 18:37 EDT) Pathologist Sig nature Troponin I (ng/mL) <0.034 <0.034 ng/ml [facility] SERVICES Specimen Blood specimen (specimen) - Blood Performing Organization Address City/[facility]/ZIP [facility] Phon e Number [facility] [address] [place] [address] SERVICES (ABNORMAL) HEMAGRAM (06/12/2017 18:37 EDT) Pathologist Sig nature WBC 17.10 (H) 4.0 - 10.4 K/cmm [facility] SERVICES RBC 3.70 (L) 4.36 - 5.78 M/cmm [facility] SERVICES Hemoglobin 12.2 (L) 13.8 - 17.3 gm/dl [facility] SERVICES HCT 34.1 (L) 39.5 - 50.2 % [facility] SERVICES MCV 92 81 - 95 fl [facility] SERVICES MCH 33.0 27.6 - 33.0 pg [facility] SERVICES MCHC 35.8 32.8 - 36.4 gm/dl [facility] SERVICES RDW-CV 11.6 <14.2 % [facility] SERVICES RDW-SD 39.4 <46.0 fl [facility] LABORATORY SERVICES PLT 206 141 - 377 K/cmm [facility] SERVICES MPV 12.3 9.5 - 12.7 fl [facility] SERVICES Specimen Blood specimen (specimen) - Blood Performing Organization Address [facility]/ZIP Code Phon e Number [facility] [address] [place] [address] SERVICES BUN (06/12/2017 18:37 EDT) Pathologist Sig nature BUN 10 10 - 26 mg/dl [facility] LABORATO RY SERVICES Specimen Blood specimen (specimen) - Blood Performing Organization Address [facility] Phon e Number [facility] [address] [place] [address] SERVICES (ABNORMAL) ELECTROLYTES (06/12/2017 18:37 EDT) Pathologist Sig nature Sodium 129 (L) 136 - 145 mEq/L [facility] LABORA TORY SERVICES Potassium 3.4 (L) 3.5 - 5.0 mEq/L [facility] LABORA TORY SERVICES Chloride 91 (L) 96 - 110 mEq/L [facility] LABORAT ORY SERVICES CO2 27 22 - 32 mEq/L [facility] LABORATO RY SERVICES Specimen Blood specimen (specimen) - Blood Performing Organization Address [facility] Phon e Number [facility] [address] [place] [address] SERVICES (ABNORMAL) CREATININE (06/12/2017 18:37 EDT) Creatinine 0.54 (L) 0.66 - 1.25 [facility] mg/dl LABORATORY SERVICES GFR, Calculated 109 >60 [facility] Comment: ml/min/1.73m2 LABORATORY eGFR calculated using CKD-EPI equation for SERVICES non Americans. Multiply eGFR by 1.16 for Americans. Specimen Blood specimen (specimen) - Blood Performing Organization Address [facility] Phon e Number [facility] [address] [place] [address] SERVICES EKG 12-LEAD (06/12/2017 18:27 EDT) Specimen Narrative [facility] EKG - 06/29/2017 15:5 7 EDT ? [facility] ? Test Date: ?2017-06-12 Pat Name: ? DAVID FARFAN ?Department: ?? Subha 5 ? Room: ? ME505 Gender: ? Male ? Loan Operations Specialist: ?? [id number] : ?1950 ? Requested By: GISELA Dunn Order Number: [id number] ? Reading MD: ?? SENG PERSON SA MD ? Measurements Intervals ?[place] ? Rate: ? 120 ?P: ?165 [place]: ? 235 ?QRS: ?-22 QRSD: ? 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 Heart failure, unspecified HF chronicity , unspecified heart failure type (HCC-CMS) ([facility]) documented in this encounter Administered Medications Inactive [...] 0.6 mg 0.6 mg, oral, 2 TIMES DAILY (0900 & 2100), First dose on [place] 06/12/17 at 2100, [...] 25 mg 25 mg, oral, 2 TIMES DAILY (0900 & 2100), First dose on 06/14/17 at 1045, Until [...] (NO Time Specified), 1 dose, Starting on Fri06/12/17 at 2000, Until [place] 06/12/17 at 2004, Routine potassium chloride SA (K-DUR, KLOR-CON) tablet Given 018 8:59 EDT 40 mEq 40 mEq 40 mEq, oral, NOW X1, 1 dose, On 06/15/17 at 0845, Routine potassium chloride SA [...] intravenous, EVERY 8 HOURS, First dose on Fri06/12/17 at 1815, Until Discontinued, Routine Given 06/16/2017 [...] RN)2103 (Given - Provider: Mila Mcallister RN) 0852 (Given - Provider: Omayra Farley RN)203 (Given [...] Omayra Farley, TISH)1604 (Given - Provider: Omayra Farley RN) 0017 (Given - Provider: Diamond Manzano RN)0803 [...] Mila Mcallister RN)1639 (Given - Provider: Mila Mcallister RN)2320 (Given [...] Mcallister RN) 0853 (Given - Provider: Omayra Farley, TISH) 0803 (Gi tabatha - Provider: Omayra Farley [...] 06/13/2017 lidocaine 20 mg/mL (2 %) injection 06/13/2017 midazolam (PF) (VERSED) 1 mg/mL injection [...] 1 06/12/2017 MEASURE WEIGHT 1 06/12/2017 NOTIFY JOB PUTTER UP AND TICKET PREPARER 1 06/12/2017 VTE PHARMACOLOGIC PROPHYLAXIS CURRENTLY 1 [...] 06/16/2017 documented in this encounter Care Teams Manager Etl Relationship Specialty Start Date End Date Katia Stone, PABijalC PCP - General 05/02/[address] [place] [phone] documented as of this encounter
--- OUTSIDE RECORDS SUMMARY | 2021-12-14 00:28 | XMS_ITS | Encounter Summary ---
:1950 Author Organization [facility] Address [address] [place] [address] Care Team Providers Name Role Phone Katia Stone PA-C Primary Care Provider Reason for Visit Reason Onset Date Comments Follow-up 12/23/2019 TE 11/02 Encounter Details Date Type Department Care Team Description 12/23/[address] [facility] Tony Rosenberg Follow- up (TE 11/02) Cardiology - Chaitanya Jasmine MD [address] [place] [address] (Wo rk) Social History Tobacco Use [...] on filedocumented in this encounter Care Teams Wind Turbine Machinist Relationship Specialty Start Date End Date Katia Stone PA-C PCP - General 05/02/[address] [place] [id number] documented as of this encounter
--- OUTSIDE RECORDS SUMMARY | 2021-12-14 00:28 | XMS_ITS | Encounter Summary ---
:1950 Author Organization [facility] Address [address] [place] [address] Care Team Providers Name Role Phone Katia Stone PA-C Primary Care Provider Encounter Details Date Type Department Care Team Description 07/19/2018 Historical Results [facility] - Vick Limon, Torsten [facility] [address] [place] [id number] Social History Tobacco Use Types Packs/Day Years [...] 07/19/2018 18:30 Results for this PANEL,RANDOM - [facility] EDT procedure are in the results section. COMPLETE BLOOD COUNT Routine 07/19/2018 18:30 Res ults for this AND DIFFERENTIAL EDT procedure a re in the results section. POCT GLUCOSE Routine 07/19/2018 18:21 Results for this (NURSING) - [facility] EDT procedure ar e in the results section. documented in this encounter Results (ABNORMAL) COMPLETE BLOOD COUNT AND DIFFERENTIAL (07/19/2018 18:30 EDT) Pathologist Sig nature WBC 8.1 4.0 - 10.5 LAB RBC 3.65 (L) 4.70 - 6.00 LAB Hemoglobin 12.5 (L) 13.5 - 18.0 LAB HCT 34.2 (L) 42.0 - 52.0 LAB MCV 93.7 78 - 100 LAB MCH 34.2 (H) 27 - 31 LAB MCHC 36.5 (H) 32 - 36 LAB RDW-CV - [facility] 12.4 11.5 - 14.0 LAB PLATELET COUNT - [facility] 158 150 - 450 LAB NEUTROPHILS % (AUTO) - 63.5 42.0 - 75.0 [facility] LAB LYMPHOCYTES % (AUTO) - 22.6 16.0 - 52.0 [facility] LAB MONOCYTES % (AUTO) - 9.6 1.0 - 11.0 [facility] LAB EOSINOPHILS % (AUTO) - 2.9 0.0 - 7.0 [facility] LAB BASOPHILS % (AUTO) - 0.7 0.0 - 4.0 [facility] LAB NUCLEATED RBC % (AUTO) 0.0 <1 [facility] LAB NEUTROPHILS # (AUTO) - 5.2 1.5 - 6.6 [facility] LAB LYMPHOCYTES # (AUTO) - 1.8 1.0 - 3.5 [facility] LAB MONOCYTES # (AUTO) - 0.8 <1.0 [facility] LAB EOSINOPHILS # (AUTO) - 0.2 <0.7 [facility] LAB BASOPHILS # (AUTO) - 0.1 <0.1 [facility] LAB NUCLEATED RBC # (AUTO) 0.00 <1 [facility] LAB Specimen Performing Organization Address [facility] Code Phon e Number LAB [address] [place] [address] LAB (ABNORMAL) BASIC METABOLIC PANEL,RANDOM - [facility] (07/19/2018 18:30 EDT) Pathologist [facility] nature Sodium 120 (L) 136 - 145 LAB Potassium 4.4 3.5 - 5.1 LAB Chloride 83 (L) 96 - 107 LAB CO2 Total 24.6 21 - 32 LAB Anion Gap 13.4 LAB BUN 8 7 - 25 LAB Creatinine 0.67 (L) 0.7 - 1.30 LAB Estimated GFR >60 >60 [facility] Comment: CENTER LAB EGFR UNITS: mL/min/1.73 m 2 CKD-EPI Equation used to calculate. Glucose 78 70 - 180 LAB Calcium 8.2 (L) 8.5 - 10.5 LAB Specimen Performing Organization Address [facility] Code Phon e Number LAB [address] [place] [address] LAB POCT GLUCOSE (NURSING) - [facility] (07/19/2018 18:21 EDT) [facility] POC CAPILLARY GLUCOSE - 86 70 - 100 [facility] Specimen Performing Organization Address [facility] Phon e Number LAB [address] [place] [address] LAB documented in this encounter Visit Diagnoses Not on filedocumented in this encounter Care Teams Instructional Design Consultant Relationship Specialty Start Date End Date Katia Stone PA-C PCP - General 05/02/[address] [place] [phone] documented as of this encounter
--- OUTSIDE RECORDS SUMMARY | 2021-12-14 00:28 | XMS_ITS | Encounter Summary ---
:1950 Author Organization [facility] Address [address] [place] [address] Care Team Providers Name Role Phone Katia Stone PA-C Primary Care Provider Reason for Visit Reason Onset Date Comments Coordination Of Care 11/30/2019 Follow-up 12/02/2019 Follow-up 12/22/2019 Pacemaker Problem 12/23/2019 Encounter Details Date Type Department Care Team Description 11/30/2019 Telephone [facility] Tony Rosenberg [facility] [place] Of Care; Cardiology - Chaitanya Jasmine MD Follow-up; Follow-up; [address] Pacemaker Problem So [place], [place] [id number] [place] [address] [place] [address] Social History Tobacco Use Types Packs/Day [...] on filedocumented in this encounter Care Teams Reception Agent Relationship Specialty Start Date End Date Katia Stone PA-C PCP - General 05/02/17 [address] [place] [phone] documented as of this encounter
--- OUTSIDE RECORDS SUMMARY | 2021-12-14 00:28 | XMS_ITS | Encounter Summary ---
:1950 Author Organization [facility] Address [address] [place] [address] Care Team Providers Name Role Phone Katia Stone PA-C Primary Care Provider Reason for Visit Reason Onset Date Comments Other 08/15/2017 Returning Call 08/15/2017 To Belinda Encounter Details Date Type Department Care Team Description 08/15/2017 Telephone [facility] Dileep, [place]; Re turning Call Cardiology - Chaitanya Trevino RN (To Belinda) [address] [place], [place] [address] Social History Tobacco Use [...] - 08/15/2017 1243 EDT Spoke with Yessica (customer care manager at PCP) in regards to patient Tim [...] Yessica patient needs to follow-up with primary travel clerk in [place] Dr. Torres.Per Yessica patient has not seen Dr. Torres since before his first admission to [facility] on 04/30/17. Mentioned to Yessica, patient needs to be following up with PCP and primary travel clerk. Yessica expressed understanding and will reach out to Dr. Torres's office at [facility]. Discharge summaries and last OV note faxed [...] reach by phone. Left detailed message, patientis [place] patient and no showed for visit with Dr. Rosenberg on 08/06. Instructed Yessica to reach out [facility] where his primary travel clerk is established on voice mail. documented in this encounter Plan of Treatment Not on filedocumented as of this encounter Visit Diagnoses Not on filedocumented in this encounter Care Teams Interface Designer Relationship Specialty Start Date End Date Katia Stone PA-C PCP - General 05/02/[address] [place] [phone] documented as of this encounter
--- OUTSIDE RECORDS SUMMARY | 2021-12-14 00:28 | XMS_ITS | Encounter Summary ---
:1950 Author Organization [facility] Address [address] [place] [address] Care Team Providers Name Role Phone Katia Stone PA-C Primary Care Provider Encounter Details Date Type Department Care Team Description 05/28/2018 Historical Results [facility] - Yi, Haja Only [facility] MD Raulito Radiology Results [address] [place], [place] [phone] Social History Tobacco Use Types Packs/Day Years [...] Sig nature B-TYPE NATRIURETIC 129 (H) <100 [facility] PEPTIDE - [facility] LAB Specimen Performing Organization Address City/State/ZIP Code Phon e Number [facility] [address] [place] [address] [facility] LAB (ABNORMAL) COMPLETE BLOOD COUNT AND DIFFERENTIAL (05/28/2018 0:45 EDT) Pathologist Sig nature WBC 10.2 4.0 - 10.5 [facility] RBC 3.77 (L) 4.70 - 6.00 [facility] Hemoglobin 12.7 (L) 13.5 - 18.0 [facility] HCT 35.3 (L) 42.0 - 52.0 [facility] LAB MCV 93.6 78 - 100 [facility] LAB MCH 33.7 (H) 27 - 31 [facility] LAB MCHC 36.0 32 - 36 [facility] LAB RDW-CV - PMC 12.0 11.5 - 14.0 [facility] LAB PLATELET COUNT - [facility] 306 150 - 450 [facility] NEUTROPHILS % (AUTO) - 76.5 (H) 42.0 - 75.0 [facility] LAB LYMPHOCYTES % (AUTO) - 14.0 (L) 16.0 - 52.0 [facility] LAB MONOCYTES % (AUTO) - 7.9 1.0 - 11.0 [facility] LAB EOSINOPHILS % (AUTO) - 0.2 0.0 - 7.0 [facility] LAB BASOPHILS % (AUTO) - 0.2 0.0 - 4.0 [facility] LAB NUCLEATED RBC % (AUTO) 0.0 <1 [facility] LAB NEUTROPHILS # (AUTO) - 7.8 (H) 1.5 - 6.6 [facility] LAB LYMPHOCYTES # (AUTO) - 1.4 1.0 - 3.5 [facility] LAB MONOCYTES # (AUTO) - 0.8 <1.0 [facility] LAB EOSINOPHILS # (AUTO) - 0.0 <0.7 [facility] LAB BASOPHILS # (AUTO) - 0.0 <0.1 [facility] NUCLEATED RBC # (AUTO) 0.00 <1 [facility] LAB Specimen Performing Organization Address [facility] Phon e Number [facility] [address] LAB TROPONIN I (05/28/2018 0:45 EDT) [facility] Troponin I (ng/mL) <0.05 <0.10 [facility] Comment: [facility] LAB REFERENCE RANGE: Negative: ? <0.10 ng/mL Indeterminate: 0.10-0.80 ng/mL Positive: ? >0.80 ng/mL ........................................... The results of this assay can be falsely decreased due to the consumption of Biotin. Specimen Performing Organization Address [facility] Phon e Number [facility] [address] LAB (ABNORMAL) HEPATIC & CMP COMBO,FASTING - [facility] (05/28/2018 0:45 EDT) [facility] Sodium 120 (L) 136 - 145 [facility] Potassium 4.0 3.5 - 5.1 [facility] Chloride 83 (L) 96 - 107 [facility] CO2 Total 25.9 21 - 32 [facility] Anion Gap 11.1 [facility] BUN 6 (L) 7 - 25 [facility] Creatinine 0.60 (L) 0.7 - 1.30 [facility] Estimated GFR >60 >60 [facility] Comment: CENTER LAB EGFR UNITS: mL/min/1.73 m 2 CKD-EPI Equation used to calculate. Glucose 122 70 - 180 [facility] Calcium 9.1 8.5 - 10.5 [facility] CALCIUM,CORRECTED - 9.8 8.5 - 10.5 [facility] LAB BILIRUBIN - PMC 0.30 0.00 - 1.00 [facility] AST 90 (H) 15 - 37 [facility] ALT 87 (H) 12 - 78 [facility] Alkaline Phosphatase 89 46 - 116 [facility] Total Protein 8.3 (H) 6.4 - 8.2 [facility] Albumin 3.1 (L) 3.4 - 5.0 [facility] GLOBULIN - PMC 5.2 [facility] ALBUMIN/GLOBULIN 0.5 [facility] RATIO - [facility] CENTER LAB Specimen Performing Organization Address City/State/ZIP Code Phon e Number [facility] [address] [place] [address] [facility] XR CHEST 2 VIEWS (05/28/2018 0:11 EDT) Specimen Narrative [facility] RADIOLOGY - 2018 0:11 EDT [facility]: [facility] [address] [place], [place] [address] Diagnostic Imaging Report Signed Patient Name:DAVID FARFAN ? Date of :1950 ? MR Number:[id number] Age:67 ?Sex:M Category: CR ? Date of [...] E-Signed by: Alma Sherwood DO ? D/ 0212 Procedure Note Alma Sherwood MD - 2018 [facility] [address] [id number] Diagnostic Imaging Report Signed Patient Name:DAVID FARFAN r:[id number] Date of :1950 MR Number:[id number] Age:67 Sex:M Category: CR Date of Exam:05/28/18 [...] Phon e Number [facility] RADIOLOGY documented in this encounter Visit Diagnoses Not on filedocumented in this encounter Care Teams Front Office Agent Relationship Specialty Start Date End Date Katia Stone PA-C PCP - General 05/02/[address] [place] [phone] documented as of this encounter
--- OUTSIDE RECORDS SUMMARY | 2021-12-14 00:28 | XMS_ITS | Encounter Summary ---
:1950 Author Organization [facility] Address [address] [place] [address] Care Team Providers Name Role Phone Katia Stone PA-C Primary Care Provider Encounter Details Date Type Department Care Team Description 06/11/2017 Results Only Imaging [facility] Alan Pratt MD Adult Primary Care - [address] [place] [phone] [place], [place] [address] [phone] Social History Tobacco Use Types Packs/Day Years [...] OUTSIDE IMAGES ? 06/11/2017 13:57 Results for edgar s ECHO IMAGES EDT procedure are i n the results section. documented in this encounter Results OUTSIDE IMAGES ??? ECHO IMAGES (06/11/2017 13:57 EDT) Anatomical Region Laterality Modality Other Specimen Narrative OP CARDIOLOGY - 06/11/2017 13:57 EDT This is an outside study - there is no r eport. Procedure Note PLATER PRINTED CIRCUIT BOARD PANELS, IMAGING - 06/13/2017 This is an outside study - there is no r eport. Performing Organization Address City/State/ZIP Code Phon e Number OP CARDIOLOGY documented in this encounter Visit Diagnoses Not on filedocumented in this encounter Care Teams Air Intercept Controller Supervisor Relationship Specialty Start Date End Date Katia Stone PA-C PCP - General 05/02/[address] [place] [phone] documented as of this encounter
--- OUTSIDE RECORDS SUMMARY | 2021-12-14 00:28 | XMS_ITS | Encounter Summary ---
:1950 Author Organization [facility] Address [address] [place] [address] Care Team Providers Name Role Phone Katia Stone PA-C Primary Care Provider Reason for Visit Reason Comments Shortness of Breath Encounter Details Date Type Department Care Team Description 06/11/2017 Office Visit [facility] Tony Rosenberg ([facility] Cardiology - Nicolasa Jasmine MD breath) (Primary Dx) [address] [address] [address] [place] [address] Social History Tobacco Use Types [...] Rosenberg MD - 06/11/2017 0000 EDT THE CARDIOLOGY - [place] PROGRESS / FOLLOWUP NOTE - 06/11/2017 PROBLEM LIST: 1. Third-degree heart block. a. Status post dual chamber pacemaker insertion. b. Pericardial effusion. c. Pacemaker generator lead repositioning and pericardiocentesis. 2. Large pleural effusions. 3. Hypertension. 4. Hyponatremia. SUBJECTIVE: Mr Mera was seen at the [facility] after his recent hospitalization at the [facility] for AV block. He had a [...] substantial bilateral pleural effusions. Echocardiogram done in [facility] [place] [facility] shows preserved LV systolic function. [...] Mr Mera to be admitted to the [facility] tomorrow for bilateral thoracentesis. Tony Rosenberg MD 03 51 PM - Tony Rosenberg MD ln Dictation ID: [id number] cc: Shailesh Torres MD, [address] [address] Katia Mccallum PA-C, [place] [address] [address] [place] [address] documented in this encounter Plan of Treatment Not on filedocumented as of this encounter Visit Diagnoses Diagnosis SOB (shortness of breath) - Primary Shortness of breath documented in this encounter Care Teams Health Careers Instructor Relationship Specialty Start Date End Date Katia Stone PA-C PCP - General 05/02/[address] [place] [address] [address], [place] [phone] documented as of this encounter
--- OUTSIDE RECORDS SUMMARY | 2021-12-14 00:28 | XMS_ITS | Encounter Summary ---
:1950 Author Organization [facility] Address [address] [place] [address] Care Team Providers Name Role Phone Katia Stone PA-C Primary Care Provider Encounter Details Date Type Department Care Team Description 08/13/2018 Historical Results [facility] - Giselle Stone, Only [facility] [address] [place], [place] [phone] Social History Tobacco Use Types Packs/Day Years [...] EDT) Sodium 125 (L) 136 - 145 [facility] Potassium 4.9 3.5 - 5.1 [facility] Chloride 91 (L) 96 - 107 [facility] CO2 Total 25.4 21 - 32 [facility] Anion Gap 8.6 [facility] BUN 7 7 - 25 [facility] Creatinine 0.59 (L) 0.7 - 1.30 [facility] Estimated GFR >60 >60 [facility] Comment: CENTER LAB EGFR UNITS: mL/min/1.73 m 2 CKD-EPI Equation used to calculate. Glucose 88 FASTIN-99 [facility] Calcium 8.1 (L) 8.5 - 10.5 [facility] CALCIUM,CORRECTED - 8.7 8.5 - 10.5 [facility] LAB BILIRUBIN - PMC 0.20 0.00 - 1.00 [facility] AST 40 (H) 15 - 37 [facility] ALT 45 12 - 78 [facility] Alkaline Phosphatase 112 46 - 116 [facility] Total Protein 7.1 6.4 - 8.2 [facility] Albumin 3.2 (L) 3.4 - 5.0 [facility] GLOBULIN - PMC 3.9 [facility] ALBUMIN/GLOBULIN 0.8 [facility] LAB Specimen Performing Organization Address City/State/ZIP Code Phon e Number [facility] [address] [place] [address] [facility] documented in this encounter Visit Diagnoses Not on filedocumented in this encounter Care Teams Dressmaker Or Tailor Relationship Specialty Start Date End Date Katia Stone PA-C PCP - General 05/02/[address] [facility] [place] [facility] [place] [phone] documented as of this encounter
--- OUTSIDE RECORDS SUMMARY | 2021-12-14 00:28 | XMS_ITS | Encounter Summary ---
:1950 Author Organization [facility] Address [address] [place] [address] Care Team Providers Name Role Phone Katia Stone PA-C Primary Care Provider Reason for Visit Reason Onset Date Comments Other 07/16/2017 Encounter Details Date Type Department Care Team Description 07/16/2017 Telephone [facility] Caitie Atwood NP Other Cardiology - [address] [place], [place] [address] [address] [place], [place] [address] (Wo rk) Social History [...] Encounter - Caitie Atwood NP - 07/16/2017 6468 EDT I spoke to the managed care provider at the [place] primary care offices. There following the patient. [...] on filedocumented in this encounter Care Teams Spinning Bath Patroller Relationship Specialty Start Date End Date Katia Stone, PABijalC PCP - General 05/02/17 [address] [place] [phone] documented as of this encounter
--- OUTSIDE RECORDS SUMMARY | 2021-12-14 00:28 | XMS_ITS | Encounter Summary ---
:1950 Author Organization [facility] Address [address] [place] [address] Care Team Providers Name Role Phone Katia Stone PA-C Primary Care Provider Reason for Visit Reason Comments Arrhythmia Encounter Details Date Type Department Care Team Description [facility] Card[facility] - Nicolasa Jasmine MD degree ([facility]) [address] (Primary Dx) [place] [address] Suite [facility] [phone] [place] [address] Social History Tobacco Use Types [...] treated with NSAIDS, colchicine and prednisone. Mr. Mrea then felt better but began to experience [...] file Gets together: Not on file Attends christianity service: Not on file Active member of [...] complete documented in this encounter Care Teams Digital Experience Manager Relationship Specialty Start Date End Date Katia Stone PA-C PCP - General 05/02/[address] [place] [phone] documented as of this encounter
--- OUTSIDE RECORDS SUMMARY | 2021-12-14 00:28 | XMS_ITS | Encounter Summary ---
:1950 Author Organization [facility] Address [address] [place] [address] Care Team Providers Name Role Phone Katia Stone PA-C Primary Care Provider Encounter Details Date Type Department Care Team Description 06/25/2018 Historical Results [facility] - Maicol Crespo MD Only [facility] 160 [facility],1ST FLOOR [address] [place], [place] [address] [place] [address] [phone] Social History Tobacco Use Types Packs/Day Years [...] procedure are i n the results section. KAZAKH PLANTAIN, Routine 06/25/2018 18:50 Result s for [...] (06/25/2018 18:50 EDT) CRISTO WELCH, IGE <0.35 [facility] - PMC Comment: CENTER LAB Class 0 (Negative <0.35) Test Performed by: [address] [address] Specimen Performing Organization Address City/[facility] Phon e Number [facility] [address] [place] [phone] [place] [address] LAB KAZAKH PLANTNICO, IGE - PMC (06/25/2018 18:50 EDT) KAZAKH PEDROAIN, <0.35 [facility] Comment: CENTER LAB Class 0 (Negative <0.35) Test Performed by: [address] [address] Specimen Performing Organization Address City/[facility] Phon e Number [facility] [address] [place] [phone] [place] [address] LAB HOUSE DUST MITES/D.P., IGE - PMC (06/25/2018 18:50 EDT) HOUSE DUST <0.35 [facility] MITES/D.P., IGE - Comment: CENTER LAB PMC Class 0 (Negative <0.35) Test Performed by: [address] [address] Specimen Performing Organization Address [facility] Phon e Number [facility] [address] [place] [address] [place] [address] [facility] - PMC (06/25/2018 18:50 EDT) ALTERNARIA TENUIS, <0.35Comment: Class [facility] IGE - PMC 0 (Negative <0.35) [facility] CLAD - PMC <0.35Comment: Class [facility] 0 (Negative <0.35) [facility] HOUSE DUST <0.35 [facility] MITE/D.F., IGE Comment: [facility] Class 0 (Negative <0.35) Test Performed by: [facility] - [facility] [address] [place] [address] CAT - PMC <0.35Comment: Class [facility] 0 (Negative <0.35) [facility] DOG DANDER, IGE - <0.35Comment: Class [facility] PMC 0 (Negative <0.35) [facility] YAYA GRASS IGE - <0.35Comment: Class [facility] PMC 0 (Negative <0.35) [facility] LAMBS QUARTER, IGE <0.35Comment: Class [facility] - PMC 0 (Negative <0.35) [facility] OAK - PMC <0.35Comment: Class [facility] 0 (Negative <0.35) [facility] RAGWEED, SHORT, IGE <0.35Comment: Class [facility] - PMC 0 (Negative <0.35) [facility] CONNER GRASS, IGE <0.35Comment: Class [facility] - PMC 0 (Negative <0.35) [facility] Specimen Performing Organization Address City/State/ZIP Code Phon e Number [facility] [address] LAB (ABNORMAL) HEPATIC & CMP COMBO,FASTING - PMC (06/25/2018 18:50 EDT) Sodium 130 (L) 136 - 145 [facility] Potassium 4.3 3.5 - 5.1 [facility] Chloride 93 (L) 96 - 107 [facility] CO2 Total 26.4 21 - 32 [facility] Anion Gap 10.6 [facility] BUN 15 7 - 25 [facility] Creatinine 0.86 0.7 - 1.30 [facility] Estimated GFR >60 >60 [facility] Comment: CENTER LAB EGFR UNITS: mL/min/1.73 m 2 CKD-EPI Equation used to calculate. Glucose 89 FASTIN-99 [facility] Calcium 8.6 8.5 - 10.5 [facility] CALCIUM,CORRECTED - 9.0 8.5 - 10.5 [facility] BILIRUBIN - [facility] 0.30 0.00 - 1.00 [facility] AST 55 (H) 15 - 37 [facility] ALT 65 12 - 78 [facility] Alkaline Phosphatase 115 46 - 116 [facility] Total Protein 7.5 6.4 - 8.2 [facility] Albumin 3.5 3.4 - 5.0 [facility] GLOBULIN - PMC 4.0 [facility] ALBUMIN/GLOBULIN 0.8 [facility] RATIO [facility] Specimen Performing Organization Address City/State/ZIP Code Phon e Number [facility] [address] [place] [address] [facility] documented in this encounter Visit Diagnoses Not on filedocumented in this encounter Care Teams Straw Hat Washer Operator Relationship Specialty Start Date End Date Katia Stone PA-C PCP - General 05/02/[address] [facility] [place] [address] documented as of this encounter
--- OUTSIDE RECORDS SUMMARY | 2021-12-14 00:28 | XMS_ITS | Encounter Summary ---
:1950 Author Organization [facility] Address [address] [place] [address] Care Team Providers Name Role Phone Katia Stone PA-C Primary Care Provider Reason for Visit Reason Onset Date Comments Other 05/29/2017 Encounter Details Date Type Department Care Team Description 05/29/2017 Telephone [facility] Cardiology - Melly Mariee RN Other [address] [place], [place] [address] Social History Tobacco Use [...] Encounter - Daija Mariee RN - 05/29/2017 1057 EDT Let pt know that I talked [...] RN - 05/29/2017 1018 EDT Spoke with Yessica, at [facility] She spoke with pt today and he had 2 episodes of sharp pains that lasted seconds at the pacemaker site Yessica- RN would like a call back with plan She states pt has had a 11# weight gain, denies shortness of breath Daughter in law takes care of meds- [phone] Spoke with pt- he had 2 quick [...] on filedocumented in this encounter Care Teams Health Coach Relationship Specialty Start Date End Date Katia Stone, BELLAC PCP - General 05/02/17 [address] [place] [phone] documented as of this encounter
--- OUTSIDE RECORDS SUMMARY | 2021-12-14 00:28 | XMS_ITS | Encounter Summary ---
:1950 Author Organization [facility] Address [address] [place] [address] Care Team Providers Name Role Phone Katia Stone PA-C Primary Care Provider Encounter Details Date Type Department Care Team Description 12/12/2018 Results Only [facility] - Candelaria Vila MD Imaging [facility] 111 [facility] Radiology Results [facility], [address], [address] [place], [place] [address] [place] [address] [phone] (Wo rk) Social History Tobacco Use [...] 2 VIEWS (12/12/2018 22:15 EDT) Specimen Narrative [facility] RADIOLOGY - 2018 22:15 EDT ?[facility]: [facility] ?[address] ?[place] [address] ?Diagnostic Imaging Report ? Signed ? Patient Name:DAVID FARFAN ? Date of :1950 ?MR Number:[id number] ? Age:68 ?Sex:M ? Category: CR ?Date [...] regarding this report , please contact the [facility] at [phone] ? Dictated by: Alma Sherwood DO ?D/ ?? 2215 ?? Transcribed by: GABE ?D/T: ? E-Signed by: Alma Sherwood DO ?D/ ?? 2327 ? Procedure Note Alma Sherwood MD - [facility] [address] [id number] Diagnostic Imaging Report Signed Patient Name:DAVID FARFAN r:[id number] Date of :1950 MR Number:[id number] Age:68 Sex:M Category: CR Date of Exam:12/12/18 [...] regarding this report , please contact the [facility] at [phone] Dictated by: Alma Sherwood DO D/T: 2215 Transcribed by: GABE Barriga/T: E-Signed by: Alma Sherwood/T: 3419 Performing Organization Address City/State/ZIP Code Phon e Number [facility] RADIOLOGY documented in this encounter Visit Diagnoses Not on filedocumented in this encounter Care Teams Administrative Assistant Coordinator Relationship Specialty Start Date End Date Katia Stone PA-C PCP - General 05/02/[address] [place] [phone] documented as of this encounter
--- OUTSIDE RECORDS SUMMARY | 2021-12-14 00:28 | XMS_ITS | Encounter Summary ---
:1950 Author Organization [facility] Address [address] [place] [address] Care Team Providers Name Role Phone Katia Stone PA-C Primary Care Provider Encounter Details Date Type Department Care Team Description 06/18/2018 Historical Results [facility] - Giselle Stone, Only [facility] [address] GARCIA, [place] [address] [phone] Social History Tobacco Use Types Packs/Day Years [...] EDT) Sodium 125 (L) 136 - 145 [facility] Potassium 4.9 3.5 - 5.1 [facility] Chloride 88 (L) 96 - 107 [facility] CO2 Total 27.6 21 - 32 [facility] Anion Gap 8.4 [facility] BUN 8 7 - 25 [facility] Creatinine 0.69 (L) 0.7 - 1.30 [facility] Estimated GFR >60 >60 [facility] Comment: CENTER LAB EGFR UNITS: mL/min/1.73 m 2 CKD-EPI Equation used to calculate. Glucose 86 FASTIN-99 [facility] Calcium 8.4 (L) 8.5 - 10.5 [facility] CALCIUM,CORRECTED - 8.9 8.5 - 10.5 [facility] BILIRUBIN - [facility] 0.60 0.00 - 1.00 [facility] AST 63 (H) 15 - 37 [facility] ALT 58 12 - 78 [facility] Alkaline Phosphatase 94 46 - 116 [facility] Total Protein 7.3 6.4 - 8.2 [facility] Albumin 3.4 3.4 - 5.0 [facility] GLOBULIN - PMC 3.9 [facility] ALBUMIN/GLOBULIN 0.8 [facility] RATIO - [facility] LAB Specimen Performing Organization Address City/State/ZIP Code Phon e Number [facility] [address] [place] [address] [facility] documented in this encounter Visit Diagnoses Not on filedocumented in this encounter Care Teams Resident Programs Assistant Relationship Specialty Start Date End Date Katia Stone PA-C PCP - General 05/02/[address] [facility] [place] [address] documented as of this encounter
--- OUTSIDE RECORDS SUMMARY | 2021-12-14 00:28 | XMS_ITS | Encounter Summary ---
:1950 Author Organization [facility] Address [address] [place] [address] Care Team Providers Name Role Phone Katia Stone PA-C Primary Care Provider Reason for Visit Reason Onset Date Comments Other 06/18/2017 discharged on .16 Follow-up 07/16/2017 Encounter Details Date Type Department Care Team Description 06/18/2017 Telephone [facility] Pierre Rubio (discharged on Cardiology - Chaitanya Wiggins MD .04.18); Follow-up [address] [facility], [address] [place] [address] (Wo rk) Social History Tobacco [...] - 07/16/2017 1310 EDT Riley WINSTON at [facility] called. States : Wt 2 weeks [...] more clled in to [facility] in [place], stated colchicinehas run out- not sure if pt needs a refill or not. States he called pt's PCP in [place] and that MD wants to know if RN should draw labs? Please call back JOAN as he is with the pt now. Routing to Giovanni Sam NP and Belinda Eddy RN and will also go speak with one of them as well. Let Riley WINSTON know that Belinda Eddy would call back. elephone Encounter - Isidra Telles - 07/16/2017 1257 EDT [facility] calling, Weight at 224, has been fluctuating Limited edema Has been winded Less endurance Cough has green secretions Some slight harsh breathing sounds Questions: Blood Work? Prednisone Taper seems to be off, will need a refill if continuing in the same manner Telephone Encounter - Belinda Falk RN - 06/18/2017 1630 EDT Spoke with Riley horta [facility] mentioned call placed to patient to confirm medication taking. Per patient he was taking Torsemide 40 mg daily and was not taking lasix. Per Riley this was differnet then what was discussed. Referred home Health to discuss care with Shailesh Torres MD in [place] and Katia Mccallum PA-C, [facility]. elephone Encounter - Belinda Falk RN - [...] on 06.16.17. He has been feeling ok. [facility] is calling to discuss his medications as [...] on filedocumented in this encounter Care Teams Garbage Person Relationship Specialty Start Date End Date Katia Stone PA-C PCP - General 05/02/[address] [place] [phone] documented as of this encounter
--- OUTSIDE RECORDS SUMMARY | 2021-12-14 00:28 | XMS_ITS | Encounter Summary ---
:1950 Author Organization [facility] Address [address] [place] [address] Care Team Providers Name Role Phone Katia [...] on filedocumented in this encounter Care Teams Signal Operator Relationship Specialty Start Date End Date Katia Stone PA-C PCP - General 05/02/[address] [place] [phone] documented as of this encounter
--- OUTSIDE RECORDS SUMMARY | 2021-12-14 00:28 | XMS_ITS | Encounter Summary ---
:1950 Author Organization [facility] Address [address] [place] [address] Care Team Providers Name Role Phone Katia Stone PA-C Primary Care Provider Reason for Visit Reason Onset Date Comments Coordination Of Care 11/12/2019 Encounter Details Date Type Department Care Team Description 11/12/2019 Telephone [facility] Dileep [facility] Cardiology - Chaitanya Trevino RN [address] [place], [place] [address] Social History Tobacco Use [...] RN - 11/12/2019 1036 EDT An from [employer] calling in to report that patient has had fallen 3 times yesterday. documented in this encounter Plan of Treatment Not on filedocumented as of this encounter Visit Diagnoses Not on filedocumented in this encounter Care Teams Litigation Services Manager Relationship Specialty Start Date End Date Katia Stone, PABijalC PCP - General 05/02/17 [address] [place] [phone] documented as of this encounter
--- OUTSIDE RECORDS SUMMARY | 2021-12-14 00:28 | XMS_ITS | Encounter Summary ---
:1950 Author Organization [facility] Address [address] [place] [address] Care Team Providers Name Role Phone Katia Stone PA-C Primary Care Provider Encounter Details Date Type Department Care Team Description 06/12/2018 Historical Results [facility] - Giselle Stone, Only [facility] [address] [place], [place] [address] [phone] Social History Tobacco Use Types Packs/Day Years [...] EDT) Sodium 125 (L) 136 - 145 [facility] Potassium 5.0 3.5 - 5.1 [facility] Chloride 89 (L) 96 - 107 [facility] CO2 Total 28.7 21 - 32 [facility] Anion Gap 7.3 [facility] BUN 8 7 - 25 [facility] Creatinine 0.60 (L) 0.7 - 1.30 [facility] Estimated GFR >60 >60 [facility] Comment: CENTER LAB EGFR UNITS: mL/min/1.73 m 2 CKD-EPI Equation used to calculate. Glucose 84 70 - 180 [facility] Calcium 8.2 (L) 8.5 - 10.5 [facility] CALCIUM,CORRECTED - 8.7 8.5 - 10.5 [facility] BILIRUBIN - [facility] 0.30 0.00 - 1.00 [facility] AST 39 (H) 15 - 37 [facility] ALT 52 12 - 78 [facility] Alkaline Phosphatase 93 46 - 116 [facility] Total Protein 7.1 6.4 - 8.2 [facility] Albumin 3.4 3.4 - 5.0 [facility] GLOBULIN - PMC 3.7 [facility] ALBUMIN/GLOBULIN 0.9 [facility] RATIO - [facility]ENTER LAB Specimen Performing Organization Address City/State/ZIP Code Phon e Number [facility] [address] [place] [address] [facility] documented in this encounter Visit Diagnoses Not on filedocumented in this encounter Care Teams Java Software Engineer Relationship Specialty Start Date End Date Katia Stone PA-C PCP - General 05/02/[address] [facility] [place] [place] [phone] documented as of this encounter
--- OUTSIDE RECORDS SUMMARY | 2021-12-14 00:28 | XMS_ITS | Encounter Summary ---
:1950 Author Organization [facility] Address [address] [place] [address] Care Team Providers Name Role Phone Katia Stone PA-C Primary Care Provider Encounter Details Date Type Department Care Team Description 12/12/2018 Results Only [facility] - Candelaria Vila MD [facility] Lab [address] [address] [address], [place] [address] (Wo rk) Social History Tobacco [...] nature WBC 10.1 4.0 - 10.5 10 [facility] 3[facility] LAB RBC 3.85 (L) 4.70 - 6.[address] LAB Hemoglobin 13.1 (L) 13.5 - 18.0 [facility] g/dL [place] [facility] HCT 36.1 (L) 42.0 - 52.0 % [facility] MCV 93.8 78 - 100 fL [facility] MCH 34.0 (H) 27 - 31 pg [facility] MCHC 36.3 (H) 32 - 36 g/dL [facility] RDW-CV - PMC 11.9 11.5 - 14.0 % [facility] PLATELET COUNT - [facility] 208 150 - [address] LAB NEUTROPHILS % (AUTO) 52.5 42.0 - 75.0 % [facility] LYMPHOCYTES % (AUTO) 32.3 16.0 - 52.0 % [facility] MONOCYTES % (AUTO) - 7.8 1.0 - 11.0 % [facility] EOSINOPHILS % (AUTO) 5.5 0.0 - 7.0 % [facility] BASOPHILS % (AUTO) - 1.4 0.0 - 4.0 % [facility] NUCLEATED RBC % 0.0 <1 % [facility] (AUTO) [facility] LAB NEUTROPHILS # (AUTO) 5.3 1.5 - 6.[address] LAB LYMPHOCYTES # (AUTO) 3.3 1.0 - 3.[address] LAB MONOCYTES # (AUTO) - 0.8 <1.0 10 3[facility] LAB EOSINOPHILS # (AUTO) 0.6 <0.7 10 3[facility] LAB BASOPHILS # (AUTO) - 0.1 <0.1 10 3/uL [facility] NUCLEATED RBC # 0.00 <1 10 3/uL [facility] (AUTO) - [facility] LAB Specimen Performing Organization Address City/State/ZIP Code Phon e Number [facility] [address] [place] [address] [facility] documented in this encounter Visit Diagnoses Not on filedocumented in this encounter Care Teams Legal Activity Adjudicator Relationship Specialty Start Date End Date Katia Stone PA-C PCP - General 05/02/17 [address] [place] [phone] documented as of this encounter
--- OUTSIDE RECORDS SUMMARY | 2021-12-14 00:28 | XMS_ITS | Encounter Summary ---
:1950 Author Organization [facility] Address [address] [place] [address] Care Team Providers Name Role Phone Katia Stone PA-C Primary Care Provider Reason for Visit Reason Onset Date Comments Labs Only 07/22/2017 from 07/16 Encounter Details Date Type Department Care Team Description 07/22/2017 Telephone [facility] Tony Rosenberg Labs On (from 07/16) Cardiology - Chaitanya Jasmine MD [address] [place] [address] [address] [place] [address] (Wo rk) Social History Tobacco [...] call office back with call back number [phone]. Telephone Encounter - Belinda Falk RN - 07/23/2017 1054 EDT Call received from Yessica with questions on when patient's follow-up appointment was with Dr. Rosenberg, where the labwork needed to be sent to, and in put from cardiology. Provided Yessica the provider access line for PCP to discuss patient's care with Dr. Rosenberg. Also discussed with Yessica since patient is seen in [place] records are not accessible to our office(labs, and outside office notes). Yessica to review with PCP and formulate coordination of care with [facility]. Telephone Encounter - Belinda Falk RN - 07/22/2017 1500 EDT Call placed to Yessica regarding Tim Mera unable to reach patient by phone. Message left on voice mail to call office back with call back number [phone]. Telephone Encounter - Morena Lux - 07/22/2017 1456 EDT Yessica from [facility] Regarding patients labs from 07/16 Has anyone addressed them Please call to advise documented in this encounter Plan of Treatment Not on filedocumented as of this encounter Visit Diagnoses Not on filedocumented in this encounter Care Teams Housing Director Relationship Specialty Start Date End Date Katia Stone PA-C PCP - General 05/02/17 [address] [place] [phone] documented as of this encounter
--- OUTSIDE RECORDS SUMMARY | 2021-12-14 00:28 | XMS_ITS | Encounter Summary ---
:1950 Author Organization [facility] Address [address] [place] [address] Care Team Providers Name Role Phone Katia Stone PA-C Primary Care Provider Reason for Visit Reason Onset Date Comments Other 11/03/2019 pacemaker problem Encounter Details Date Type Department Care Team Description 11/03/2019 Telephone [facility] Tony Rosenberg Other ( pacemaker Cardiology - Chaitanya Jasmine MD problem) [address] [place] [address] [place] [address] Social History Tobacco Use Types [...] Dr. Rosenberg. Needs to be done at [facility] when we have the lead extraction program up and running. Will keep you posted. JW Nila expressed understanding, she mentioned patient is anxious and would like to have more information regarding next steps. elephone Encounter - Marilyn Escoto - 11/03/2019 1017 EDT Spoke with Nila at [employer], she is wondering about update in regards to plan for lead revision. Nila asks for an update you can reach her at [phone] extension 7 Please advise Telephone Encounter - Jada Ochoa - 11/03/2019 1015 EDT Patient's pacemaker has been shocking him. documented in this encounter Plan of Treatment Not on filedocumented as of this encounter Visit Diagnoses Not on filedocumented in this encounter Care Teams Collections Director Relationship Specialty Start Date End Date Katia Stone PA-C PCP - General 05/02/17 [address] [place] [phone] documented as of this encounter
--- OUTSIDE RECORDS SUMMARY | 2021-12-14 00:28 | XMS_ITS | Encounter Summary ---
:1950 Author Organization [facility] Address [address] [place] [address] Care Team Providers Name Role Phone Katia Stone PA-C Primary Care Provider Encounter Details Date Type Department Care Team Description 12/12/2018 Results Only [facility] - Candelaria Vila MD [facility] Lab [address] [address] [place], [place] [address] (Wo rk) Social History Tobacco [...] BILIRUBIN - PMC 0.40 0.00 - 1.00 [facility] mg/dl CENTER LAB DIRECT BILIRUBIN - PMC 0.10 0.00 - 0.30 [facility] mg/dl CENTER LAB INDIRECT BILIRUBIN - 0.30 0.00 - 0.80 [facility] PMC mg/dl [facility] AST 68 (H) 15 - 37 U/L [facility] ALT 53 12 - 78 U/L [facility] Alkaline Phosphatase 98 46 - 116 U/L [facility] Total Protein 7.4 6.4 - 8.2 g/dl [facility] Albumin 3.0 (L) 3.4 - 5.0 g/dl [facility] GLOBULIN - PMC 4.4 g/dl [facility] ALBUMIN/GLOBULIN RATIO 0.6 [facility] LAB Specimen Performing Organization Address City/State/ZIP Code Phon e Number [facility] [address] [place] [address] [facility] PROCALCITONIN - PMC (12/12/2018 22:16 EDT) Procalcitonin <0.05 <0.50 ng/mL [facility] Comment: CENTER LAB Concentration [...] occur without infection. Specimen Performing Organization Address [facility] LAB [address] [place] [address] LAB (ABNORMAL) BNP - PMC (12/12/2018 22:15 EDT) Pathologist [facility] B-TYPE NATRIURETIC 123 (H) <100 pg/mL [facility] PEPTIDE - [facility] LAB Specimen Performing Organization Address [facility] LAB [address] [place] [address] LAB TROPONIN I (12/12/2018 22:06 EDT) Pathologist [facility] Troponin I (ng/mL) <0.05 <0.10 ng/ml [facility] Comment: CENTER LAB REFERENCE RANGE: Negative: ? <0.10 ng/mL Indeterminate: 0.10-0.80 ng/mL Positive: ? >0.80 ng/mL ........................................... The results of this assay can be falsely decreased due to the consumption of Biotin. Specimen Performing Organization Address [facility] LAB [address] [place], [place] [id number] [place] [address] LAB (ABNORMAL) BASIC METABOLIC PANEL,RANDOM - PMC (12/12/2018 22:06 EDT) Sodium 120 (L) 136 - 145 [facility] mEq/L [facility] Potassium 4.6 3.5 - 5.1 [facility] mEq/L [facility] Chloride 86 (L) 96 - 107 [facility] mEq/L [facility] CO2 Total 25.2 21 - 32 mEq/L [facility] Anion Gap 8.8 mEq/L [facility] BUN 7 7 - 25 mg/dl [facility] Creatinine 0.61 (L) 0.7 - 1.30 [facility] mg/dl CENTER LAB Estimated GFR >60 >60 [facility] Comment: CENTER LAB EGFR UNITS: mL/min/1.73 m 2 CKD-EPI Equation used to calculate. GLUCOSE,RANDOM - 89 70 - 180 [facility] PMC mg/dl [place] [facility] Calcium 8.1 (L) 8.5 - 10.5 [facility] mg/dl [place] LAB Specimen Performing Organization Address City/State/[facility] Code Phon e Number [facility] [address] [place] [address] [facility] documented in this encounter Visit Diagnoses Not on filedocumented in this encounter Care Teams Patient Transition Specialist Relationship Specialty Start Date End Date Katia Stone PA-C PCP - General 05/02/[address] [place] [phone] documented as of this encounter
--- OUTSIDE RECORDS SUMMARY | 2021-12-14 00:28 | XMS_ITS | Encounter Summary ---
:1950 Author Organization [facility] Address [address] [place] [address] Care Team Providers Name Role Phone Katia Stone PA-C Primary Care Provider Encounter Details Date Type Department Care Team Description 01/12/2020 Results Only [facility] - Angelic Olguin MD [facility] [address] [place] [id number] (Wo rk) Social History Tobacco Use [...] 100 mg/dL [facility] GLUCOSE - [facility] Specimen Performing Organization Address City/[facility]/ZIP Code Phon e Number [facility] [address] [place] [address] (ABNORMAL) ETHYL ALCOHOL LEVEL - [facility] (01/12/2020 22:30 EST) ETHYL ALCOHOL 237.0 (CRIT HIGH) <10 mg/dL [facility] - [facility] Comment: [facility] Results called and read back to me by: Location: ED Full name: FERMIN FAROOQ Credentials: RN at 2346 on 01/12/20 by TESS. Medical Serum/Plasma Alcohol test reported in mg/dL. Example of unit conversion from mg/dL to percentage: ?80 mg/dL is equivalent to 0.08 % Specimen Narrative [facility] - 01/12/2020 2 3:47 EST Sample collected at time of saline lock or IV placement. Performing Organization Address City/[facility]/ZIP Code Phon e Number [facility] [address] [place] [address] TROPONIN I (01/12/2020 22:30 EST) Troponin I [...] to the consumption of Biotin. Specimen Narrative [facility] - 01/12/2020 2 3:47 EST Sample collected at time of saline lock or IV placement. Performing Organization Address [facility] e [facility] [address] [place] [address] (ABNORMAL) BASIC METABOLIC PANEL,RANDOM - PMC (01/12/2020 22:30 EST) Sodium 116 (CRIT LOW) 136 - 145 mEq/L [facility] Comment: [facility] Results called and read back to me by: Location: ED Full name: DEBBIE MORRISRELL Credentials: RN at 2332 on 01/12/20 by TESS. Potassium 4.3 3.5 - 5.1 mEq/L [facility] Chloride 83 (L) 96 - 107 mEq/L [facility] CO2 Total 24.6 21 - 32 mEq/L [facility] Anion Gap 10.4 mEq/L [facility] BUN 5 (L) 7 - 25 mg/dl [facility] Creatinine 0.62 (L) 0.70 - 1.30 [facility] mg/dl [facility] Estimated GFR >60 >60 [facility] Comment: [facility] EGFR UNITS: mL/min/1.73 m 2 CKD-EPI Equation used to calculate. Glucose 89 70 - 180 mg/dl [facility] Calcium 8.2 (L) 8.5 - 10.1 [facility] mg/dl [facility] Specimen Narrative [facility] - 01/12/2020 2 3:47 EST Sample collected at time of saline lock or IV placement. Performing Organization Address [facility] e [facility] [address] [place] [address] (ABNORMAL) HEPATIC FUNCTION PANEL (ALB,ALK PHOS,ALT,AST,DBIL,TOT BOSSMAN,TOT PROT) (01/12/2020 22:30 EST) Pathologist Sig nature BILIRUBIN - PMC 0.60 0.00 - 1.00 [facility] mg/dl [facility] DIRECT BILIRUBIN - [facility] 0.20 0.00 - 0.30 [facility] mg/dl [facility] INDIRECT BILIRUBIN - 0.40 0.00 - 0.80 [facility] mg/dl [facility] AST 74 (H) 15 - 37 U/L [facility] ALT 44 16 - 63 U/L [facility] Alkaline Phosphatase 103 46 - 116 U/L [facility] Total Protein 8.1 6.4 - 8.2 g/dl [facility] Albumin 3.3 (L) 3.4 - 5.0 g/dl [facility] GLOBULIN - [facility] 4.8 g/dl [facility] ALBUMIN/GLOBULIN RATIO 0.6 [facility] Specimen Narrative [facility] - 01/12/2020 2 3:47 EST Sample collected at time of saline lock or IV placement. Performing Organization Address City/State/ZIP Code Phon e Number [facility] [address] [place] [address] (ABNORMAL) COMPLETE BLOOD COUNT AND DIFFERENTIAL (01/12/2020 22:30 EST) Pathologist Sig nature WBC 5.5 4.0 - 10.[address] LAB RBC 3.69 (L) 4.70 - 6.00 10 [facility] 6/[facility] Hemoglobin 12.8 (L) 13.5 - 18.0 [facility] g/dL [facility] HCT 35.3 (L) 42.0 - 52.0 % [facility] MCV 95.7 78 - 100 fL [facility] MCH 34.7 (H) 27 - 31 pg [facility] MCHC 36.3 (H) 32 - 36 g/dL [facility] RDW-CV - PMC 12.6 11.0 - 14.8 % [facility] PLATELET COUNT - [facility] 182 150 - [address] LAB NEUTROPHILS % (AUTO) 54.5 42.0 - 75.0 % [facility] LYMPHOCYTES % (AUTO) 29.0 16.0 - 52.0 % [facility] MONOCYTES % (AUTO) - 12.6 (H) 1.0 - 11.0 % [facility] EOSINOPHILS % (AUTO) 2.4 0.0 - 7.0 % [facility] BASOPHILS % (AUTO) - 1.1 0.0 - 4.0 % [facility] NUCLEATED RBC % 0.0 <1 % [facility] (AUTO) [facility] NEUTROPHILS # (AUTO) 3.0 1.5 - 6.6 10 [facility] 3/uL [facility] LYMPHOCYTES # (AUTO) 1.6 1.0 - 3.5 10 [facility] 3/uL [facility] MONOCYTES # (AUTO) - 0.7 <1.0 10 3/uL [facility] EOSINOPHILS # (AUTO) 0.1 <0.7 10 3/uL [facility] BASOPHILS # (AUTO) - 0.1 <0.1 10 3/uL [facility] NUCLEATED RBC # 0.00 <1 10 3/uL [facility] (AUTO) [facility] LAB Specimen Narrative [facility] - 01/12/2020 2 3:35 EST Sample collected at time of saline lock or IV placement. Performing Organization Address City/State/ZIP Code Phon e Number [facility] [address] [place] [address] documented in this encounter Visit Diagnoses Not on filedocumented in this encounter Care Teams Hospice Consultant Relationship Specialty Start Date End Date Katia Stone, BELLAC PCP - General 05/02/17 [address] [place], [place] [phone] documented as of this encounter
--- OUTSIDE RECORDS SUMMARY | 2021-12-14 00:29 | XMS_ITS | Encounter Summary ---
:1950 Author Organization [facility] Address [address] [place] [id number] Care Team Providers Name Role Phone Katia Stone PA-C Primary Care Provider Encounter Details Date Type Department Care Team Description 05/20/2017 Results Only Imaging [facility]- Unknown, PRISM Provider, Social History Tobacco Use [...] on filedocumented in this encounter Care Teams Commercial Lawn Specialist Relationship Specialty Start Date End Date Katia Stone, PABijalC PCP - General 05/02/[address] [place] [phone] documented as of this encounter
--- OUTSIDE RECORDS SUMMARY | 2021-12-14 00:29 | XMS_ITS | Encounter Summary ---
:1950 Author Organization [facility] Address [address] [place] [address] Care Team Providers Name Role Phone Katia Stone PA-C Primary Care Provider Reason for Referral Follow Up (3 - 10 Business Days) - New Request Specialty Diagnoses / Procedures Referred By Contact Refer red To Contact Diagnoses Hyponatremia Pericardial effusion Heart block Acute on chronic diastolic congestive heart failure (HCC-CMS) ([facility]) Acute pericarditis, unspecified type Vini Mathis MD Belden, Katelyn D, MINGO [address] [place] [address] [address], [place] [address] [place] [phone] Fax: Referral ID Status Reason Start Expiration Visits Visits Date Date Requested Authorized [id number] New Request Continuity of 05/27/2017 1 1 Care Question Answer Reason for Request: post hosp f/u visit Reason for Visit Reason Comments Chest Pain Patient arrives as transfer from [facility] for pleuritic chest pain and new diagnosis CHF after pacemaker placement at [facility] two weeks ago. Dyspnea with exertion, breat h sounds course crackles. Alert and oriented. Encounter Details Date Type Department Care Team Description 05/20/2017 - [facility] Laly Kim MD [address] [facility], Level [address] [place] [id number] Hyponatremia (Primary Dx); 05/27/2017 Encounter Cardiac/Telemetry Akash Reyes MD [address] [phone] Pericardial effusion; Andres Gayle MD [address] [address] Heart block; [address] [place] [address] Tony Flores MD [address] [place] [address] Acute on chronic diastolic congestive he art failure (CMS-HCC) ([facility]); [place], [place] Seng Brody Sa, MD [address] [address] Acute pericarditis, unspecified type [address] [...] Acute on chronic diastolic congestive heart failure ([facility]-H[facility]) 05/01/2017 05/27/2017 Hospital Course David Mera is [...] amlodipine and chlorthalidone. ?? He presented to [facility] ED 05/20 with orthopnea and cough, and CT chest showed pericardial effusion. He was transferred to [facility] ED for pericardiocentesis. In the ED he [...] Component Value Units Date/Time Respiratory Virus Detection [[id number]] Collected: 05/26/17 1157 Lab Status: Preliminary result Specimen: Nasopharynx Updated: 05/27/17 1425 Result No RSV, Influenza A, or Influenza B detected by PCR Result No Metapneumovirus detected by PCR. Result Delay in some virus(es) result(s), testing being repeated and/or confirmed. Anaerobe Culture/Smear (inc. aerobes), Fluid [[id number]] Collected: 05/23/17 0747 Lab Status: Preliminary result Specimen: FOSMIC from Pericardial Fluid Updated: 05/25/17 1146 Gram Smear Result Few Polys No bacteria seen Result No growth Fungus Culture/Smear, Other [[id number]] Collected: 05/23/17 0747 Lab Status: Preliminary result [...] 05/01/2017 Discharge Follow Up Appointments Scheduled with [facility] Upcoming Appointments Jun 04, 2017 16:00 EDT Post Hospital Visit with Tony Rosenberg MD [facility] Cardiology [facility] (--) [address] [place] [address] Appointments Outside of [facility] We Will Schedule Follow-up appointments and procedures Amb Consult/Follow Up Primary Care Physician Reason for Request: post hosp f/u visit Authorizing Provider: Vini Mathis MD Additional Information: Cardiology follow up FriJune 04, 2017 at [address] Justin Rosenberg at the [facility]. You should be notified of appointment time. If you do not head by FriJune 01, please call [phone] to find out the time. Cardiology follow up on June 16, 2017 at 2:[address] Torres at the [facility] has previously scheduled. Clinic number [phone] Studies We Will Schedule Follow-up labs and [...] Vini Mathis MD Internal Medicine PGY-1 Pager: [phone] 05/27/2017 20:52 Associated attestation - Seng Brody Sa, MD - 05/30/2017 1206 EDT Attending Attestation: I saw and evaluated the patient 05/27. I discussed the case with the resident/CUSTOMS ENTRY WRITER/fellow and agree with the findings and plan as documented above. Seng person Sa, MD Cardiac Electrophysiology documented in this encounter Discharge Instructions AppointmentsHamceci-Coleen Gr NP - 05/27/2017 10:25 EDT Cardiology follow up FriJune 04, 2017 at [address] Justin Rosenberg at the [facility]. You should be notified of appointment time. If you do not head by FriJune 01, please call [phone] to find out the time. Cardiology follow up on June 16, 2017 at 2:[address] Torres at the [facility] has previously scheduled. Clinic number [phone] Discharge Instr - Other Melida Mas RN [...] through Care Everywhere. HEART FAILURE: AVOIDING TRIGGERS (MONGOLIAN)documented in this encounter Medications at Time of [...] Take 1 Tab by 42 Tab 0 2 018 06/10/2017 tablet mouth 3 times daily [...] knees MSK: Normal bulk and tone. 5/5 hotel recreational facilities manager strength SKIN: No lesions, bruises, or rashes noted. NEURO: Awake, alert, and moves all extremities : No colmean Is PICC or central line present? No, [...] initially hypertensive, but now normo-hypotensive. - Holding TRAFFIC RECORDER lisinopril ?? Chronic diastolic heart failure: Volume [...] 05/26/17. I discussed the case with the resident/CUSTOMS ENTRY WRITER/fellow and agree with the findings and plan [...] knees MSK: Normal bulk and tone. 5/5 hotel recreational facilities manager strength SKIN: No lesions, bruises, or rashes [...] initially hypertensive, but now normo-hypotensive. - Holding TRAFFIC RECORDER lisinopril ?? Chronic diastolic heart failure: currently [...] knees MSK: Normal bulk and tone. 5/5 hotel recreational facilities manager strength SKIN: No lesions, bruises, or rashes [...] initially hypertensive, but now normo-hypotensive. - Holding TRAFFIC RECORDER lisinopril ?? Chronic diastolic heart failure: currently [...] Landry M.D., PGY-1 Internal Medicine Resident Pager [phone] 05/24/2017 10:04 Attestation statement: Supervising Physician I saw and examined Mr. Mera on Wednesday, May 24, 2017. I agree with the history, physical and the assessment plans as outlined above. Tony Lopez MD - 05/23/2017 0911 EDT Cardiology Progress [...] knees MSK: Normal bulk and tone. 5/5 hotel recreational facilities manager strength SKIN: No lesions, bruises, or rashes [...] initially hypertensive, but now normo-hypotensive. - Holding TRAFFIC RECORDER lisinopril ?? Chronic diastolic heart failure: currently [...] Landry M.D., PGY-1 Internal Medicine Resident Pager [phone] 05/23/2017 9:11 Attestation statement: Supervising Physician. I saw and examined Mr. Mera on morning rounds with the cardiac electrophysiology service on May 23, 2017. I agree with the history, physical and the assessment plans as outlined above. ony Rosenberg MD - 05/22/2017 0850 EDT Cardiology Progress [...] knees MSK: Normal bulk and tone. 5/5 hotel recreational facilities manager strength SKIN: No lesions, bruises, or rashes [...] initially hypertensive, but now normo-hypotensive. - Holding TRAFFIC RECORDER lisinopril ?? Chronic diastolic heart failure: currently volume overloaded. Needs diuresis, cautious in setting ofnormotension. - Holding Lasix/chlorthalidone - Torsemide 10 mg PO as aobve - Strict I&O - 1.5 L fluid restriction as above - Daily weights - Daily BUN, Cr VTE Prophylaxis Held d/t bloody pericentesis drain Discharge Plan Uncertain at this time Jayne Landry M.D., PGY-1 Internal Medicine Resident Pager [phone] 05/22/2017 8:50 Attestation statement: I saw and [...] Chart: Yes, previous copy on file @ [facility] DIRECTIVES FOR FINANCES: TRANSPORTATION: Transportation: Family CULTURAL, CHRISTIAN and/or LANGUAGE factors affecting health care/discharge planning: [...] AID - [address] - [place], [place] - [address] [facility] [phone] [facility] - [place], [place] - [address] [facility] [address] [facility] [address] Home Health: Other: POST HOSPITAL TRANSITION PLAN: Plan d/c to his son, Catarina, house in [place] Desi Villatoro RN 05/21/2017 13:12 Desi Villatoro RN - 05/21/2017 0990 EDT 05/21: Met with patient. Dr. Rosenberg is at the bedside. Plan will be pericardiocentesis and reposition of pacer lead. I will follow up with patient later today. Desi Villatoro RN [id number] YTJayne Landry MD - 05/21/2017 0747 [...] knees MSK: Normal bulk and tone. 5/5 hotel recreational facilities manager strength SKIN: No lesions, bruises, or rashes [...] will hold lisinopril for now. - Holding TRAFFIC RECORDER lisinopril ?? Chronic diastolic heart failure: currently volume overloaded. Needs diuresis after resolution of pericardial effusion. - Holding Lasix/chlorthalidone in setting of pericardial effusion - Strict I&O - 1.2 L fluid restriction as above - Daily weights - Daily BUN, Cr VTE Prophylaxis Held pending pericardiocentesis Discharge Plan Uncertain at this time Jayne Landry M.D., PGY-1 Internal Medicine Resident Pager [phone] 05/21/2017 8:01 Ester Dobbins MD - 05/21/2017 0640 EDT PATIENT CONSENT TO CARDIOVASCULAR CATHETERIZATION OR INTERVENTION: Ester Bran MD, have explained the risks and benefits of cardiac catheterization and/or intervention to the patient (or responsible constitution party) and have answered the patient's (or responsible constitution party's) questions. To the best of my knowledge, the patient (or responsible constitution party) has been adequately informed. The patient (or responsible constitution party) has consented to the interventional cardiac procedure. As part of the consent we reviewed that, like surgical procedures, interventional procedures require aggressive short term support to determine the potential benefits of the procedures. For this reason, the patient (or responsible constitution party) has agreed to remain FULL CODE for a minimum of 48 hours after theprocedure. Ester Dobbins MD Director Non Profit PGY-5 05/20/2017 23:30 documented in this encounter [...] smoker, 1-2 beers 1-2x/week, lives alone in [place] Allergies: Reviewed No Known Allergies Exam: General [...] will hold lisinopril for now. - Holding TRAFFIC RECORDER lisinopril Chronic diastolic heart failure: with some [...] outpatient, avoid thiazide diuretics Vladimir Crowe MD FACP [facility] [employer] [employer] [facility] 05/25/2017 11:46 Vladimir mckeon [...] the assessment and plan. Vladimir Crowe MD [facility] Transplant [employer] 05/24/2017 12:32 Elliot Stubbs [...] this hospitalization: ARTUR Fairchild MD 05/23/2017 15:20 lliot Fairchild MD - 05/21/2017 1327 EDT NEPHROLOGY [...] TIME. 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 Laly Kim MD - 05/20/20174 EDT DOS: 05/20/2017 Chief Complaint Patient presents with ??? Chest Pain Patient arrives as transfer from [facility] for pleuritic chest pain and new diagnosis CHF after pacemaker placement at [facility] two weeks ago. Dyspnea with exertion, breath sounds course crackles.Alert and oriented. HPI HPI Comments: I, Deana Bingham, am scribing for Laly Kim, * while he/she is personally performing the service. Deana Hernándezsharla 05/20/2017 22:25 David Mera is a 66 y.o. male with a history of heart block AV third degree, HTN, acute on chronicCHF, who presents as a transfer from [place] with pericardial effusion. Pt had pacemaker placed [...] appears to be a good tracing. Attending global program director not available for acute interpretation. Radiology orders: [...] for problems Not Given Final Accession number [id number] Final CREATININE, URINE RANDOM SODIUM, URINE RANDOM [...] of admission: 0 (). PCP: Katia Mccallum [facility] Number of Diagnoses or Management Options Hyponatremia: [...] Care - Sigrid Gordon, TISH - 05/25/2017 0524 EDT Problem: Daily Care Plan Goals Goal: [...] Care - Cici Tapia RN - 05/24/2017 6146 EDT Problem: Daily Care Plan Goals Goal: [...] at 0700. A+Ox3, independent. Admitted for SOB 2/ to pericardial effusion. Pericardial drain removed 05/23, [...] Ottoniel - Rox Valdivia, TISH - 05/21/2017 6996 EDT Problem: Daily Care Plan Goals Goal: [...] SOB and pleuritic chest pain. Transferred from [facility]. Dx of peridcardial effusion, HTN, CHF, [...] EKG 12-LEAD (05/27/2017 7:37 EDT) Specimen Narrative [facility] EKG - 06/01/2017 12:4 1 EDT ? [facility] ? Test Date: ?2017-05-27 Pat Name: ? DAVID MERA ?Department: ?? [facility] 5 ? Room: ? MW531 Gender: ? M ?Clinical Liaison: ?? [id number] : ?1950 ? Requested By: PRADIP MONET Order Number: [id number] ? Reading MD: ?? PIERRE RUBIO MD ? Measurements Intervals ?[place] ? Rate: ? 69 ? P: ?23 MO: ? 175 ?QRS: ?-58 QRSD: ? 193 [...] Note Pierre Rubio MD - 06/01/2017 [facility] Test Date: 2017-05-27 Pat Name: DAVID MERA Department: [place] [address] Room: [facility] Gender: M Clinical Liaison: [id number] : 1950 Requested By: PRADIP MANNING Order Number: [id number] Reading MD: Irish RUBIO MD Measurements Intervals [place] Rate: 69 P: 23 MO: 175 QRS: -58 QRSD: 193 T: 189 QT: 528 QTc: 568 Interpretive Statements SINUS RHYTHM WITH ATRIAL TRACKING and VE NTRICULAR PACING Compared to ECG 05/26/2017 07:29:50 No significant changes I reviewed the tracing and have either a greed or edited the findings in this report. Electronically Signed On 12:41:22 EDT by PIERRE RUBIO MD. Performing Organization Address City/[facility] Code Phon e Number [facility] EKG (ABNORMAL) ELECTROLYTES (05/27/2017 5:57 EDT) Pathologist Sig nature Sodium 129 (L) 136 - 145 mEq/L [facility] Potassium 3.9 3.5 - 5.0 mEq/L [facility] Chloride 87 (L) 96 - 110 mEq/L [facility] ORY SERVICES CO2 33 (H) 22 - 32 mEq/L [facility] RY SERVICES Specimen Blood specimen (specimen) - Blood Performing Organization Address City/[facility] Phon e Number [facility] [address] [place] [address] SERVICES BUN (05/27/2017 5:57 EDT) Pathologist Sig nature BUN 13 10 - 26 mg/dl [facility] SERVICES Specimen Blood specimen (specimen) - Blood Performing Organization Address City/State/ZIP Code Phon e Number [facility] [address] [place] [address] SERVICES MAGNESIUM (05/27/2017 5:57 EDT) Pathologist Sig nature Magnesium 1.9 1.7 - 2.8 mg/dl [facility] Specimen Blood specimen (specimen) - Blood Performing Organization Address City/State/ZIP Code Phon e Number [facility] [address] [place] [phone] SERVICES (ABNORMAL) CREATININE (05/27/2017 5:57 EDT) Creatinine 0.63 (L) 0.66 - 1.25 [facility] mg/dl LABORATORY SERVICES GFR, Calculated 103 >60 [facility] Comment: ml/min/1.73m2 LABORATORY eGFR calculated using CKD-EPI equation for SERVICES non Americans. Multiply eGFR by 1.16 for Americans. Specimen Blood specimen (specimen) - Blood Performing Organization Address City/State/ZIP Code Phon e Number [facility] [address] [place] [address] SERVICES (ABNORMAL) HEMAGRAM (05/27/2017 5:57 EDT) Pathologist Sig nature WBC 6.74 4.0 - 10.4 K/cmm [facility] RBC 3.43 (L) 4.36 - 5.78 M/cmm [facility] Hemoglobin 11.3 (L) 13.8 - 17.3 gm/dl [facility] HCT 32.2 (L) 39.5 - 50.2 % [facility] MCV 94 81 - 95 fl [facility] MCH 32.9 27.6 - 33.0 pg [facility] MCHC 35.1 32.8 - 36.4 gm/dl [facility] RDW-CV 11.3 <14.2 % [facility] RDW-SD 38.4 <46.0 fl [facility] PLT 308 141 - 377 K/cmm [facility] MPV 10.4 9.5 - 12.7 fl [facility] Specimen Blood specimen (specimen) - Blood Performing Organization Address [facility] Phon e Number [facility] [address] [place] [address] SERVICES (ABNORMAL) NT PRO BNP (05/26/2017 17:55 EDT) Pathologist Sig nature NT Pro BNP 2,710 (H) <300 pg/ml [facility] Comment: LABORATORY SERVICES Slight hemolysis Results may [...] specimen (specimen) - Blood Performing Organization Address [facility] Phon e Number [facility] [address] [place] [address] SERVICES (ABNORMAL) ELECTROLYTES (05/26/2017 17:55 EDT) Pathologist Sig nature Sodium 129 (L)Comment: 136 - 145 mEq/L [facility] Slight hemolysis LABORATORY SERVICES Potassium 4.0 3.5 - 5.0 mEq/L [facility] Comment: LABORATORY SERVICES Slight hemolysis Hemolysis may elevate potassium result. Chloride 84 (L)Comment: 96 - 110 mEq/L [facility] Slight hemolysis LABORATORY SERVICES CO2 35 (H)Comment: 22 - 32 mEq/L [facility] Slight hemolysis LABORATORY SERVICES Specimen Blood specimen (specimen) - Blood Performing Organization Address [facility] Phon e Number [facility] [address] [place] [address] SERVICES INPATIENT ADD-ON (05/26/2017 15:20 EDT) Tests to be added BNP [facility] [place] [id number] [facility] problems LABORATORY SERVICES Accession number CALLED M5 WITH [facility] INABILITY TO LABORATORY SERVICES PERFORM ADD ON DUE TO NO SUITABLE SAMPLE [id number] JR Specimen Other Performing Organization Address City/State/ZIP Code Phon e Number [facility] [address] [place] [address] SERVICES LEGIONELLA ANTIGEN DETECTION, URINE (05/26/2017 14:04 EDT) Pathologist Sig nature Result No Legionella [facility] pneumophila serogroup LABORATORY SERVICES 1 antigen detected. Specimen Other (qualifier value) - Urine Performing Organization Address City/[facility]/ZIP Code Phon e Number [facility] [address] [place] [address] SERVICES STREPTOCOCCUS PNEUMONIAE ANTIGEN, URINE (05/26/2017 14:04 EDT) Pathologist Sig nature Result No Strep pneumoniae [facility] antigen detected. LABORATORY SERVICES Specimen Other (qualifier value) - Urine Performing Organization Address City/[facility]/ZIP Code Phon e Number [facility] [address] [place] [address] SERVICES CHEST PA AND LATERAL (05/26/2017 12:30 EDT) Anatomical Region Laterality Modality Other Specimen Narrative [facility] - 05/26/2017 14:17 EDT [...] Organization Address City/State/ZIP Code Phon e Number [facility] BACTERIAL CULTURE/SMEAR, RESPIRATORY (05/26/2017 12:14 EDT) Gram Smear Result [facility] Polys LABORATORY SERVICES Gram Smear Result [facility] Squamous epithelial cells LABORATORY SERVICES Gram Smear Result [facility] Mixed gram positive and gram negative organisms LABORATORY SERVICES Gram Smear Result Smear suggests contamination with saliva. ??Please submit additional specimen if clinically [facility] indicated. LABORATORY SERVICES Result See gram smear [facility] results. LABORATORY SERVICES Result Credit Issued [facility] SERVICES Specimen Other (qualifier value) - Sputum Performing Organization Address City/State/ZIP Code Phon e Number [facility] [address] [place] [address] SERVICES RESPIRATORY VIRUS DETECTION (05/26/2017 11:57 EDT) Result No RSV, Influenza A, or [facility] Influenza B detected by LABORATORY SERVIC ES PCR Result No Metapneumovirus [facility] detected by PCR. LABORATORY SERVICES Result No Parainfluenza Virus Type 1,2 or 3 detected by PCR. This assay may have decrease sensitivity [facility] for Parainfluenza Virus Type 3. LABORATOR Y SERVICES Specimen Nasopharynx Performing Organization Address City/State/ZIP Code Phon e Number [facility] [address] [place] [address] SERVICES ECHOCARDIOGRAM LIMITED (05/26/2017 11:16 EDT) Specimen Narrative [facility]ARDIOLOGY [facility] S - 05/26/2017 11:25 EDT *Interpreting Group:* *[facility] Cardiology* [address] [place] [address] Date of study: 05/26/2017 Transthoracic Echocardiography M-mode, [...] Rosenberg MD ORDERING ?Tony Rosenberg MD PERFORMING ??[facility], REFERRING ?? Katia Mccallum *PROCEDURE DATA* Procedure information: ??The patient was identified by two identifiers. [facility]. Pertinent images and digital data [...] Andrade MD - 05/26/2017 *Interpreting Group:* *[facility]* [address] [place] [address] Date of study: 05/26/2017 Transthoracic Echocardiography M-mode, [...] Rosenberg MD ORDERING Tony Rosenberg MD PERFORMING [facility], Ip REFERRING Katia Mccallum *PROCEDURE DATA* Procedure information: The patient was i dentified by two identifiers. This study was [facility]. Pertinent images and digital data [...] Organization Address City/State/ZIP Code Phon e Number [facility]IOLOG[facility] EKG 12-LEAD (05/26/2017 7:29 EDT) Specimen Narrative [facility] EKG - 05/27/2017 13:1 8 EDT ? [facility] ? Test Date: ?2017-05-26 Pat Name: ? DAVID MERA ?Department: ?? JAME Chao ? Room: ? MW531 Gender: ? M ?Clinical Liaison: ?? [id number] : ?1950 ? Requested By: PRADIP MONET Order Number: [id number] ? Martha OAKES: ?? LALY DELA CRUZ MD ? Measurements Intervals ?[place] ? Rate: ? 73 ? P: ? MO: ? 0 ?QRS: ?-45 QRSD: ? 192 [...] Laly Dela Cruz MD - 05/27/2017 [facility] Test Date: 2017-05-26 Pat Name: DAVID ADOLPH Department: BUD Chao Room: [facility] Gender: M Clinical Liaison: [id number] : 1950 Requested By: PRADIP MANNING Order Number: [id number] Reading MD: Elsa DELA CRUZ MD Measurements Intervals [place] Rate: 73 P: MO: 0 QRS: -45 QRSD: 192 T: 176 QT: 536 QTc: 594 Interpretive Statements ELECTRONIC VENTRICULAR PACEMAKER ABNORMAL RHYTHM ECG Automated Interpretation. Provider Inter pretation to follow. Compared to ECG 05/25/2017 07:40:16 No significant changes I reviewed the tracing and have either a greed or edited the findings in this report. Electronically Signed On 13:18:21 EDT by LALY DELA CRUZ MD. Performing Organization Address [facility] Code [facility] e [facility] EKG (ABNORMAL) ELECTROLYTES (05/26/2017 5:57 EDT) Pathologist Sig nature Sodium 128 (L) 136 - 145 mEq/L [facility] Potassium 3.7 3.5 - 5.0 mEq/L [facility] Chloride 85 (L) 96 - 110 mEq/L [facility] CO2 35 (H) 22 - 32 mEq/L [facility] Specimen Blood specimen (specimen) - Blood Performing Organization Address [facility] LABORATORY [address] [place] [address] SERVICES (ABNORMAL) BUN (05/26/2017 5:57 EDT) Pathologist Sig nature BUN 9 (L) 10 - 26 mg/dl [facility] Specimen Blood specimen (specimen) - Blood Performing Organization Address [facility] LABORATORY [address] [place] [address] SERVICES MAGNESIUM (05/26/2017 5:57 EDT) Pathologist Sig nature Magnesium 1.8 1.7 - 2.8 mg/dl [facility] LABORA TORY SERVICES Specimen Blood specimen (specimen) - Blood Performing Organization Address [facility] LABORATORY [address] [place] [address] SERVICES (ABNORMAL) CREATININE (05/26/2017 5:57 EDT) Creatinine 0.53 (L) 0.66 - 1.25 [facility] mg/dl LABORATORY SERVICES GFR, Calculated 110 >60 [facility] Comment: ml/min/1.73m2 LABORATORY eGFR calculated using CKD-EPI equation for SERVICES non Americans. Multiply eGFR by 1.16 for Americans. Specimen Blood specimen (specimen) - Blood Performing Organization Address City/State/ZIP Code Phon e Number [facility] LABORATORY [address] [place] [id number] SERVICES (ABNORMAL) HEMAGRAM (05/26/2017 5:57 EDT) Pathologist Sig nature WBC 7.06 4.0 - 10.4 K/cmm [facility]ORAT[facility] SERVICES RBC 3.20 (L) 4.36 - 5.78 M/cmm [facility] SERVICES Hemoglobin 10.7 (L) 13.8 - 17.3 gm/dl [facility] SERVICES HCT 30.0 (L) 39.5 - 50.2 % [facility] SERVICES MCV 94 81 - 95 fl [facility] SERVICES MCH 33.4 (H) 27.6 - 33.0 pg [facility] SERVICES MCHC 35.7 32.8 - 36.4 gm/dl [facility] SERVICES RDW-CV 11.3 <14.2 % [facility] SERVICES RDW-SD 38.4 <46.0 fl [facility] LABORAT[facility] SERVICES PLT 306 141 - 377 K/cmm [facility] SERVICES MPV 10.3 9.5 - 12.7 fl [facility]ORAT[facility] SERVICES Specimen Blood specimen (specimen) - Blood Performing Organization Address City/State/ZIP Code Phon e Number [facility] LABORATORY [address] [place] [address] SERVICES (ABNORMAL) ELECTROLYTES (05/25/2017 17:58 EDT) Pathologist Sig nature Sodium 130 (L) 136 - 145 mEq/L [facility] SERVICES Potassium 3.6 3.5 - 5.0 mEq/L [facility] SERVICES Chloride 83 (L) 96 - 110 mEq/L [facility] LABORAT ORY SERVICES CO2 36 (H) 22 - 32 mEq/L [facility] LABORATO RY SERVICES Specimen Blood specimen (specimen) - Blood Performing Organization Address City/State/ZIP Code Phon e Number [facility] LABORATORY [address] [place] [address] SERVICES OSMOLALITY, URINE (05/25/2017 14:29 EDT) Pathologist Sig nature Osmolality, Ur 284 150 - 1,150 mos/kg [facility]ORAT[facility] SERVICES Specimen Urine (substance) - Urine Performing Organization Address City/[facility] Code Phon e Number [facility] LABORATORY [address] [place] [address] SERVICES URINE ELECTROLYTES (05/25/2017 14:29 EDT) Chloride, Ur 41 mEq/L [facility] Comment: LABORATORY SERVICES Reference Range: No reference range available Potassium, Urine 31.1 mEq/L [facility]ORAT[facility] SERVICES Sodium, Ur 81.0 mEq/L [facility]AT[facility] SERVICES Specimen Urine (substance) - Urine Performing Organization Address [facility] Code Phon e Number [facility] LABORATORY [address] [place] [address] SERVICES EKG 12-LEAD (05/25/2017 7:40 EDT) Specimen Narrative [facility] EKG - 06/02/2017 8:35 EDT ? [facility] ? Test Date: ?2017-05-25 Pat Name: ? DAVID MERA ?Department: ?? [facility] [address] ? Room: ? MW531 Gender: ? M ?Clinical Liaison: ?? [id number] : ?1950 ? Requested By: PRADIP MONET Order Number: [id number] ? Reading MD: ?? SENG PERSON SA, MD ? Measurements Intervals ?[place] ? Rate: ? 76 ? P: ?35 MO: ? 218 ?QRS: ?-47 QRSD: ? 188 [...] Seng Brody Sa, MD - 06/02/2017 [facility] Test Date: 2017-05-25 Pat Name: DAVID MERA Department: B[facility] Chao Room: [facility] Gender: M Clinical Liaison: [id number] : 1950 Requested By: PRADIPVARGAS MANNING Order Number: [id number] Reading MD: Nithya PERSON SA, MD Measurements Intervals [place] Rate: 76 P: 35 MO: 218 QRS: -47 QRSD: 188 T: 193 [...] Organization Address City/State/ZIP Code Phon e Number [facility] EKG (ABNORMAL) ELECTROLYTES (05/25/2017 5:59 EDT) Pathologist Sig nature Sodium 127 (L) 136 - 145 mEq/L [facility] Potassium 3.7 3.5 - 5.0 mEq/L [facility] Chloride 85 (L) 96 - 110 mEq/L [facility] CO2 36 (H) 22 - 32 mEq/L [facility] Specimen Blood specimen (specimen) - Blood Performing Organization Address [facility]/ZIP [facility] Phon e Number [facility]OR[facility] [address] [place] [address] SERVICES (ABNORMAL) BUN (05/25/2017 5:59 EDT) Pathologist Sig nature BUN 9 (L) 10 - 26 mg/dl [facility] Specimen Blood specimen (specimen) - Blood Performing Organization Address City/[facility]/ZIP Code Phon e Number [facility] LABORATORY [address] [place] [address] SERVICES MAGNESIUM (05/25/2017 5:59 EDT) Pathologist Sig nature Magnesium 1.7 1.7 - 2.8 mg/dl [facility] Specimen Blood specimen (specimen) - Blood Performing Organization Address [facility]/ZIP [facility] Phon e Number [facility] [address] [place] [address] SERVICES (ABNORMAL) CREATININE (05/25/2017 5:59 EDT) Creatinine 0.54 (L) 0.66 - 1.25 [facility] mg/dl LABORATORY SERVICES GFR, Calculated 109 >60 [facility] Comment: ml/min/1.73m2 LABORATORY eGFR calculated using CKD-EPI equation for SERVICES non Americans. Multiply eGFR by 1.16 for Americans. Specimen Blood specimen (specimen) - Blood Performing Organization Address City/State/ZIP Code Phon e Number [facility] LABORATORY [address] [place] [address] SERVICES (ABNORMAL) HEMAGRAM (05/25/2017 5:59 EDT) Pathologist Sig nature WBC 6.99 4.0 - 10.4 K/cmm [facility]ORAT[facility] SERVICES RBC 3.16 (L) 4.36 - 5.78 M/cmm [facility] SERVICES Hemoglobin 10.5 (L) 13.8 - 17.3 gm/dl [facility] LAB[facility] SERVICES HCT 29.5 (L) 39.5 - 50.2 % [facility] LABOR[facility] SERVICES MCV 93 81 - 95 fl [facility] SERVICES MCH 33.2 (H) 27.6 - 33.0 pg [facility] LABORATORY SERVICES MCHC 35.6 32.8 - 36.4 gm/dl [facility] SERVICES RDW-CV 11.2 <14.2 % [facility] LABORAT[facility] SERVICES RDW-SD 38.8 <46.0 fl [facility] LABORATORY SERVICES PLT 290 141 - 377 K/cmm [facility]ORAT[facility] SERVICES MPV 10.7 9.5 - 12.7 fl [facility]OR[facility] SERVICES Specimen Blood specimen (specimen) - Blood Performing Organization Address City/[facility]/ZIP Code Phon e Number [facility]OR[facility]ORY [address] [place] [address] SERVICES (ABNORMAL) ELECTROLYTES (05/24/2017 18:02 EDT) Pathologist Sig nature Sodium 127 (L) 136 - 145 mEq/L [facility] SERVICES Potassium 3.7 3.5 - 5.0 mEq/L [facility] SERVICES Chloride 80 (L) 96 - 110 mEq/L [facility] LABORAT ORY SERVICES CO2 37 (H) 22 - 32 mEq/L [facility] LABORATO RY SERVICES Specimen Blood specimen (specimen) - Blood Performing Organization Address City/State/ZIP Code Phon e Number [facility]OR[facility]ORY [address] [place] [address] SERVICES [facility] 12-LEAD (05/24/2017 7:22 EDT) Specimen Narrative [facility] - 05/28/2017 9:56 EDT ? [facility] ? Test Date: ?2017-05-24 Pat Name: ? DAVID MERA ?Department: ?? [facility] [address] ? Room: ? MW531 Gender: ? M ?Clinical Liaison: ?? [id number] : ?1950 ? Requested By: PRADIP MONET Order Number: [id number] ? Reading MD: ?? ERVIN WILHELM MD ? Measurements Intervals ?[place] ? Rate: ? 103 ?P: ?-19 MO: ? 232 ?QRS: ?-39 QRSD: ? 192 ?T: ?168 QT: ? 412 ? QTc: ?542 ? Interpretive Statements ELECTRONIC VENTRICULAR PACEMAKER Compared to ECG 05/23/2017 07:20:54 No significant changes I reviewed the tracing and have either a greed or edited the findings in this report. Electronically Signed On 09:56:53 EDT by ERVIN WILHELM MD. Procedure Note Ervin Wilhelm MD - 05/28/2017 [facility] Cent r Test Date: 2017-05-24 Pat Name: DAVID MERA Department: [facility] Room: [facility] Gender: M Clinical Liaison: [id number] : 1950 Requested By: PRADIP MANNING Order Number: [id number] Reading MD: Hallie WILHELM MD Measurements Intervals [place] Rate: 103 P: -19 MO: 232 QRS: -39 QRSD: 192 T: 168 QT: 412 QTc: 542 Interpretive Statements ELECTRONIC VENTRICULAR PACEMAKER Compared to ECG 05/23/2017 07:20:54 No significant changes I reviewed the tracing and have either a greed or edited the findings in this report. Electronically Signed On 8 09:56:53 EDT by ERVIN WILHELM MD. Performing Organization Address City/State/ZIP Code Phon e Number [facility] EKG (ABNORMAL) ELECTROLYTES (05/24/2017 5:51 EDT) Pathologist Sig nature Sodium 128 (L) 136 - 145 mEq/L [facility] LABORA TORY SERVICES Potassium 3.9 3.5 - 5.0 mEq/L [facility] TORY SERVICES Chloride 83 (L) 96 - 110 mEq/L [facility] LABORAT ORY SERVICES CO2 36 (H) 22 - 32 mEq/L [facility] LABORATO RY SERVICES Specimen Blood specimen (specimen) - Blood Performing Organization Address City/State/ZIP Code Phon e Number [facility] LABORATORY [address] [place] [address] SERVICES (ABNORMAL) BUN (05/24/2017 5:51 EDT) Pathologist Sig nature BUN 9 (L) 10 - 26 mg/dl [facility] Specimen Blood specimen (specimen) - Blood Performing Organization Address City/State/ZIP Code Phon e Number [facility]OR[facility]ORY [address] [place] [address] SERVICES MAGNESIUM (05/24/2017 5:51 EDT) Pathologist Sig nature Magnesium 1.7 1.7 - 2.8 mg/dl [facility]ORA TORY SERVICES Specimen Blood specimen (specimen) - Blood Performing Organization Address City/State/ZIP Code Phon e Number [facility]OR[facility] [address] [place] [address] SERVICES (ABNORMAL) CREATININE (05/24/2017 5:51 EDT) Creatinine 0.59 (L) 0.66 - 1.25 [facility] mg/dl LABORATORY SERVICES GFR, Calculated 105 >60 [facility] Comment: ml/min/1.73m2 LABORATORY eGFR calculated using CKD-EPI equation for SERVICES non Americans. Multiply eGFR by 1.16 for Americans. Specimen Blood specimen (specimen) - Blood Performing Organization Address City/State/ZIP Code Phon e Number [facility]ORATORY [address] [place] [address] SERVICES (ABNORMAL) HEMAGRAM (05/24/2017 5:51 EDT) Pathologist Sig nature WBC 7.61 4.0 - 10.4 K/cmm [facility] LABORAT[facility] SERVICES RBC 3.35 (L) 4.36 - 5.78 M/cmm [facility]ORAT[facility] SERVICES Hemoglobin 11.0 (L) 13.8 - 17.3 gm/dl [facility]OR[facility] SERVICES HCT 31.4 (L) 39.5 - 50.2 % [facility]ORAT[facility] SERVICES MCV 94 81 - 95 fl [facility] SERVICES MCH 32.8 27.6 - 33.0 pg [facility] LABORAT[facility] SERVICES MCHC 35.0 32.8 - 36.4 gm/dl [facility] LABORAT[facility] SERVICES RDW-CV 11.4 <14.2 % [facility] LABORATORY SERVICES RDW-SD 39.0 <46.0 fl [facility] LABORATORY SERVICES PLT 273 141 - 377 K/cmm [facility] LABORATORY SERVICES MPV 10.9 9.5 - 12.7 fl [facility] LABORATORY SERVICES Specimen Blood specimen (specimen) - Blood Performing Organization Address City/[facility]/ZIP Code Phon e Number [facility] LABORATORY [address] [place] [address] SERVICES (ABNORMAL) ELECTROLYTES (05/23/2017 21:40 EDT) Pathologist Sig nature Sodium 128 (L) 136 - 145 mEq/L [facility]ORA TORY SERVICES Potassium 3.6 3.5 - 5.0 mEq/L [facility] SERVICES Chloride 81 (L) 96 - 110 mEq/L [facility] LABORAT ORY SERVICES CO2 38 (H) 22 - 32 mEq/L [facility] LABORATO RY SERVICES Specimen Blood specimen (specimen) - Blood Performing Organization Address City/[facility]/ZIP Code Phon e Number [facility]OR[facility] [address] [place] [address] SERVICES (ABNORMAL) ELECTROLYTES (05/23/2017 12:16 EDT) Pathologist Sig nature Sodium 126 (L) 136 - 145 mEq/L [facility] TORY SERVICES Potassium 3.7 3.5 - 5.0 mEq/L [facility] TORY SERVICES Chloride 81 (L) 96 - 110 mEq/L [facility] LABORAT ORY SERVICES CO2 36 (H) 22 - 32 mEq/L [facility]ORATO RY SERVICES Specimen Blood specimen (specimen) - Blood Performing Organization Address City/State/ZIP Code Phon e Number [facility] LABORATORY [address] [place] [address] SERVICES ECHOCARDIOGRAM LIMITED (05/23/2017 10:59 EDT) Specimen Narrative [facility] CARDIOLOGY [facility]IN [facility] - 05/23/2017 11:19 EDT *Interpreting Group:* *[facility] Cardiology* [address] [place] [address] Date of study: 05/23/2017 Transthoracic Echocardiography M-mode, [...] ?Akash Reyes MD ATTENDING ?Tony Rosenberg MD COMBINATION WORKER ??Hali Del Real [facility] PERFORMING ?? Uvc, Ip ORDERING ? Jayne Landry REFERRING ?Katia Mccallum *PROCEDURE DATA* Procedure information: ??This study was interpreted by [facility]. Pertin ent images and [...] Andrade MD - 05/23/2017 *Interpreting Group:* *[facility] Card[facility]* [address] [place] [address] Date of study: 05/23/2017 Transthoracic Echocardiography M-mode, [...] Akash Reyes MD ATTENDING Tony Rosenberg MD COMBINATION WORKER Hali Del Real RDCS PERFORMING [facility], Ip ORDERING Jayne Landry Katelyn Doran *PROCEDURE DATA* Procedure information: This study was in terpreted by [facility] Card[facility]. Pertin ent images and [...] Andrade MD 05/23/2017 11:19 Performing Organization Address City/[facility]/ZIP Code Phon e Number [facility] CARDIOLOGY [facility]IN [facility] FLUID DIFFERENTIAL (05/23/2017 7:47 EDT) Pathologist Sig nature Neutrophils, Fluid 30 % [facility] LABORATORY SERVICES Lymphocytes, Fluid 64 % [facility] LABORATORY SERVICES [place]/Macro, Fluid 5 % [facility] LABORAT[facility] SERVICES Eosinophil, Fluid 1 % [facility] LABORATORY SERVICES Specimen Pericardial Fluid Performing Organization Address City/State/ZIP Code Phon e Number [facility]ORATORY [address] [place] [address] SERVICES FUNGUS CULTURE/SMEAR, OTHER (05/23/2017 7:47 EDT) Pathologist Sig nature Fungal Smear No fungi seen [facility] LABORATORY SERVICES Result No fungi isolated [facility] LABORATORY SERVICES Specimen FOSMIC - Pericardial Fluid Performing Organization Address City/[facility]/ZIP Code Phon e Number [facility] LABORATORY [address] [place] [address] SERVICES ANAEROBE CULTURE/SMEAR(INC. AEROBES), FLUID (05/23/2017 7:47 EDT) Gram Smear Result Few [facility] Polys LABORATORY SERVICES Gram Smear Result No bacteria seen [facility] LABORATORY SERVICES Result No growth [facility] LABORATORY SERVICES Specimen FOSMIC - Pericardial Fluid Performing Organization Address City/[facility]/ZIP Code Phon e Number [facility] LABORATORY [address] [place] [address] SERVICES HEMATOCRIT, BODY FLUID (05/23/2017 7:47 EDT) Hematocrit,Body 6.5Comment: % [facility] Fld PERICARDIAL FLUID LABORATORY SERVICES Specimen FOSCHM - Pericardial Fluid Performing Organization Address [facility]/ZIP Code Phon e Number [facility] LABORATORY [address] [place] [address] SERVICES FLUID CELL COUNT (05/23/2017 7:47 EDT) Pathologist Sig nature RBC, Fluid 661,000 /cmm [facility] LABORATORY SERVICES Nucleated Cells 1,773 /cmm [facility] LABOR[facility] SERVICES Fluid Comment Markedly bloody [facility] LABORATORY SERVICES Specimen FOSCH - Pericardial Fluid Performing Organization Address City/[facility]/ZIP Code Phon e Number [facility]ORATORY [address] [place] [address] SERVICES TOTAL PROTEIN, FLUID (05/23/2017 7:47 EDT) Protein, Fluid 5.5 g/dl [facility] Comment: LABORATORY SERVICES Reference Range: Pleural [...] FOSCHM - Pericardial Fluid Performing Organization Address [facility] e Number [facility] LABORATORY [address] [place] [address] SERVICES LDH, FLUID (05/23/2017 7:47 EDT) Pathologist Sig nature LDH, Fluid 2,337 U/L [facility] Comment: LABORATORY SERVICES Pleural fluid specimen [...] FOSCHM - Pericardial Fluid Performing Organization Address [facility] e Number [facility]OR[facility] [address] [place] [address] SERVICES GLUCOSE, FLUID (05/23/2017 7:47 EDT) Glucose, Fluid 54 mg/dl [facility] Comment: LABORATORY SERVICES Reference Range: Pleural [...] FOSCHM - Pericardial Fluid Performing Organization Address [facility] Code Phon e Number [facility]ORATORY [address] [place] [address] SERVICES ALBUMIN, FLUID (05/23/2017 7:47 EDT) Albumin, Fluid 2.5 g/dl [facility] Comment: LABORATORY SERVICES Reference Range: Pleural [...] FOSCHM - Pericardial Fluid Performing Organization Address [facility] Phon e Number [facility]ORATORY [address] [place] [address] SERVICES EKG 12-LEAD (05/23/2017 7:20 EDT) Specimen Narrative [facility] EKG - 05/23/2017 11:4 5 EDT ? [facility] ? Test Date: ?2017-05-23 Pat Name: ? DAVID MERA ?Department: ?? [facility] [address] ? Room: ? MW531 Gender: ? M ?Clinical Liaison: ?? [id number] : ?1950 ? Requested By: PRADIP MONET Order Number: [id number] ? Reading : ?? MARCO A FOX MD ? Measurements Intervals ?[place] ? Rate: ? 102 ?P: ? MO: ? 0 ?QRS: ?-20 QRSD: ? 189 ?T: ?178 QT: ? 398 ? QTc: ?519 ? Interpretive Statements ELECTRONIC VENTRICULAR PACEMAKER ABNORMAL RHYTHM ECG I reviewed the tracing and have either a greed or edited the findings in this report. Electronically Signed On 8 11:45:47 EDT by MARCO A FOX MD. Procedure Note Marco A Fox MD - 05/23/2017 [facility] Test Date: 2017-05-23 Pat Name: DAVID MERA Department: [facility] Room: [facility] Gender: M Clinical Liaison: [id number] : 1950 Requested By: PRADIP MANNING Order Number: [id number] Reading MD: Hallie FOX MD Measurements Intervals [place] Rate: 102 P: MO: 0 QRS: -20 QRSD: 189 T: 178 QT: 398 QTc: 519 Interpretive Statements ELECTRONIC VENTRICULAR PACEMAKER ABNORMAL RHYTHM ECG I reviewed the tracing and have either a greed or edited the findings in this report. Electronically Signed On 11:45:47 EDT by MARCO A FOX MD. Performing Organization Address City/State/ZIP Code Phon e Number [facility] EKG (ABNORMAL) ELECTROLYTES (05/23/2017 6:42 EDT) Pathologist Sig nature Sodium 124 (LL) 136 - 145 mEq/L [facility] LABORATORY SERVICES Potassium 3.5 3.5 - 5.0 mEq/L [facility]OR[facility] SERVICES Chloride 84 (L) 96 - 110 mEq/L [facility]OR[facility] SERVICES CO2 33 (H) 22 - 32 mEq/L [facility] LABORAT[facility] SERVICES Specimen Blood specimen (specimen) - Blood Performing Organization Address [facility]/ZIP Code Phon e Number [facility]OR[facility] [address] [place] [address] SERVICES BUN (05/23/2017 6:42 EDT) Pathologist Sig nature BUN 10 10 - 26 mg/dl [facility] LABORATO RY SERVICES Specimen Blood specimen (specimen) - Blood Performing Organization Address City/[facility]/ZIP Code Phon e Number [facility] [address] [place] [address] SERVICES MAGNESIUM (05/23/2017 6:42 EDT) Pathologist Sig nature Magnesium 1.7 1.7 - 2.8 mg/dl [facility] LABORA TORY SERVICES Specimen Blood specimen (specimen) - Blood Performing Organization Address City/[facility]/ZIP Code Phon e Number [facility] [address] [place] [address] SERVICES (ABNORMAL) CREATININE (05/23/2017 6:42 EDT) Creatinine 0.50 (L) 0.66 - 1.25 [facility] mg/dl LABORATORY SERVICES GFR, Calculated 113 >60 [facility] Comment: ml/min/1.73m2 LABORATORY eGFR calculated using CKD-EPI equation for SERVICES non Americans. Multiply eGFR by 1.16 for Americans. Specimen Blood specimen (specimen) - Blood Performing Organization Address City/State/ZIP Code Phon e Number [facility]OR[facility]ORY [address] [place] [address] SERVICES (ABNORMAL) HEMAGRAM (05/23/2017 6:42 EDT) Pathologist Sig nature WBC 8.96 4.0 - 10.4 K/cmm [facility] LABORATORY SERVICES RBC 3.30 (L) 4.36 - 5.78 [facility] Hemoglobin 11.0 (L) 13.8 - 17.3 gm/dl [facility] LABORATORY SERVICES HCT 30.8 (L) 39.5 - 50.2 % [facility] LABORATORY SERVICES MCV 93 81 - 95 fl [facility] LABORATORY SERVICES MCH 33.3 (H) 27.6 - 33.0 pg [facility] LABORATORY SERVICES MCHC 35.7 32.8 - 36.4 gm/dl [facility] LABORATORY SERVICES RDW-CV 11.3 <14.2 % [facility] LABORATORY SERVICES RDW-SD 38.5 <46.0 fl [facility] LABORATORY SERVICES PLT 254 141 - 377 [facility] MPV 11.2 9.5 - 12.7 fl [facility] LABORATORY SERVICES Specimen Blood specimen (specimen) - Blood Performing Organization Address City/State/ZIP Code Phon e Number [facility]OR[facility] [address] [place] [address] SERVICES CYTOPATHOLOGY (05/23/2017 0:00 EDT) Pathology Report: CYTOPATHOLOGY REPORT [facility] LABORATORY Reports generated via electronic interface contain jacquelyn ginal data; SERVICES however they are lacking the format of the original re port. Caution should be taken when reading/interpreting unfo rmatted reports. Name: ? ADOLPH DAVID Juan ? Accession #: ? [id number] : ? 1950 (Age: 66) ??M ?Collect [...] Organization Address City/State/ZIP Code Phon e Number [facility]OR[facility] [address] [place] [address] SERVICES (ABNORMAL) ELECTROLYTES (05/22/2017 23:40 EDT) Pathologist Sig nature Sodium 125 (L) 136 - 145 mEq/L [facility] LABORA TORY SERVICES Potassium 3.3 (L) 3.5 - 5.0 mEq/L [facility] LABORA TORY SERVICES Chloride 84 (L) 96 - 110 mEq/L [facility] LABORAT ORY SERVICES CO2 33 (H) 22 - 32 mEq/L [facility] LABORATO RY SERVICES Specimen Blood specimen (specimen) - Blood Performing Organization Address [facility]/ZIP Code Phon e Number [facility]OR[facility] [address] [place] [address] SERVICES (ABNORMAL) ELECTROLYTES (05/22/2017 18:36 EDT) Pathologist Sig nature Sodium 124 (LL)Comment: 136 - 145 mEq/L [facility] Slight hemolysis LABORATORY SERVICES Potassium 3.9 3.5 - 5.0 mEq/L [facility] Comment: LABORATORY SERVICES Slight hemolysis Hemolysis may elevate potassium result. Chloride 81 (L)Comment: 96 - 110 mEq/L [facility] Slight hemolysis LABORATORY SERVICES CO2 32Comment: Slight 22 - 32 mEq/L [facility] hemolysis LABORATORY SERVICES Specimen Blood specimen (specimen) - Blood Performing Organization Address [facility] Phon e Number [facility] LABORATORY [address] [place] [address] SERVICES CHEST PA AND LATERAL (05/22/2017 14:43 EDT) Anatomical Region Laterality Modality Other Specimen Narrative [facility] RADIOLOGY MAIN [facility]ER - 05/22/2017 15:28 EDT CHEST PA AND [...] diaphragm less well seen. Performing Organization Address City/[facility]/ZIP Code Phon e Number [facility] RADIOLOGY MAIN FLETCHER (ABNORMAL) ELECTROLYTES (05/22/2017 12:36 EDT) Pathologist Sig nature Sodium 121 (LL)Comment: 136 - 145 mEq/L [facility] Moderate hemolysis LABORATORY SERVICES Potassium 5.3 (H) 3.5 - 5.0 mEq/L [facility] Comment: LABORATORY SERVICES Moderate hemolysis Hemolysis may elevate potassium result. Chloride 85 (L)Comment: 96 - 110 mEq/L [facility] Moderate hemolysis LABORATORY SERVICES CO2 27Comment: Moderate 22 - 32 mEq/L [facility] hemolysis LABORATORY SERVICES Specimen Blood specimen (specimen) - Blood Performing Organization Address [facility]/ZIP Code Phon e Number [facility] LABORATORY [address] [place] [address] SERVICES BACTERIAL CULTURE, BLOOD (05/22/2017 9:58 EDT) Pathologist Sig nature Result No growth [facility] LABORATOR Y SERVICES Specimen Blood specimen (specimen) - Blood Performing Organization Address [facility]/ZIP Code Phon e Number [facility]OR[facility]ORY [address] [place] [address] SERVICES BACTERIAL CULTURE, BLOOD (05/22/2017 9:58 EDT) Pathologist Sig nature Result No growth [facility] Specimen Blood specimen (specimen) - Blood Performing Organization Address [facility] Phon e Number [facility] [address] [place] [address] SERVICES EKG 12-LEAD (05/22/2017 8:04 EDT) Specimen Narrative [facility] EKG - 05/26/2017 12:5 0 EDT ? [facility] ? Test Date: ?2017-05-22 Pat Name: ? DAVID MERA ?Department: ?? [facility] 5 ? Room: ? MW531 Gender: ? M ?Clinical Liaison: ?? [id number] : ?1950 ? Requested By: PRADIP MONET Order Number: [id number] ? Reading MD: ?? GAGAN RAMOS MD ? Measurements Intervals ?[place] ? Rate: ? 115 ?P: ?-20 MO: ? 237 ?QRS: ?-24 QRSD: ? 177 [...] Note Gagan Ramos MD - 05/26/2017 [facility] Test Date: 2017-05-22 Pat Name: DAVID MERA Department: BUD Chao Room: [facility] Gender: M Clinical Liaison: [id number] : 1950 Requested By: PRADIP MANNING Order Number: [id number] Reading MD: Vern RAMOS MD Measurements Intervals [place] Rate: 115 P: -20 MO: 237 QRS: -24 QRSD: 177 T: 172 QT: 357 QTc: 496 Interpretive Statements ELECTRONIC VENTRICULAR PACEMAKER ABNORMAL RHYTHM ECG Compared to ECG 05/21/2017 20:29:55 No significant changes I reviewed the tracing and have either a greed or edited the findings in this report. Electronically Signed On 12:50:27 EDT by GAGAN RAMOS MD. Performing Organization Address City/[facility]/ZIP Code Phon e Number [facility] EKG BUN (05/22/2017 4:09 EDT) Pathologist Sig nature BUN 11 10 - 26 mg/dl [facility] Specimen Blood specimen (specimen) - Blood Performing Organization Address [facility]/ZIP Code Phon e Number [facility] [address] [place] [address] SERVICES MAGNESIUM (05/22/2017 4:09 EDT) Pathologist Sig nature Magnesium 2.1 1.7 - 2.8 mg/dl [facility] SERVICES Specimen Blood specimen (specimen) - Blood Performing Organization Address City/State/ZIP Code Phon e Number [facility] [address] [place] [address] SERVICES (ABNORMAL) CREATININE (05/22/2017 4:09 EDT) Creatinine 0.56 (L) 0.66 - 1.25 [facility] mg/dl LABORATORY SERVICES GFR, Calculated 108 >60 [facility] Comment: ml/min/1.73m2 LABORATORY eGFR calculated using CKD-EPI equation for SERVICES non Americans. Multiply eGFR by 1.16 for Americans. Specimen Blood specimen (specimen) - Blood Performing Organization Address [facility]/State/ZIP Code Phon e Number [facility] [address] [place] [address] SERVICES (ABNORMAL) HEMAGRAM (05/22/2017 4:09 EDT) Pathologist Sig nature WBC 10.75 (H) 4.0 - 10.4 K/cmm [facility] SERVICES RBC 3.70 (L) 4.36 - 5.78 M/cmm [facility] SERVICES Hemoglobin 12.2 (L) 13.8 - 17.3 gm/dl [facility] SERVICES HCT 34.1 (L) 39.5 - 50.2 % [facility] SERVICES MCV 92 81 - 95 fl [facility] SERVICES MCH 33.0 27.6 - 33.0 pg [facility] SERVICES MCHC 35.8 32.8 - 36.4 gm/dl [facility] SERVICES RDW-CV 10.9 <14.2 % [facility] SERVICES RDW-SD 37.2 <46.0 fl [facility] SERVICES PLT 294 141 - 377 K/cmm [facility] SERVICES MPV 10.7 9.5 - 12.7 fl [facility] SERVICES Specimen Blood specimen (specimen) - Blood Performing Organization Address City/State/ZIP Code Phon e Number [facility] [address] [place] [address] SERVICES (ABNORMAL) ELECTROLYTES (05/22/2017 4:09 EDT) Pathologist Sig nature Sodium 122 (LL) 136 - 145 mEq/L [facility] SERVICES Potassium 4.0 3.5 - 5.0 mEq/L [facility] SERVICES Chloride 84 (L) 96 - 110 mEq/L [facility] SERVICES CO2 29 22 - 32 mEq/L [facility] SERVICES Specimen Blood specimen (specimen) - Blood Performing Organization Address City/State/ZIP Code Phon e Number [facility] [address] [place] [address] SERVICES (ABNORMAL) ELECTROLYTES (05/22/2017 0:23 EDT) Pathologist Sig nature Sodium 120 (LL) 136 - 145 mEq/L [facility] SERVICES Potassium 3.4 (L) 3.5 - 5.0 mEq/L [facility] SERVICES Chloride 83 (L) 96 - 110 mEq/L [facility] SERVICES CO2 31 22 - 32 mEq/L [facility] SERVICES Specimen Blood specimen (specimen) - Blood Performing Organization Address City/State/ZIP Code Phon e Number [facility] [address] [place] [address] SERVICES EKG 12-LEAD (05/21/2017 20:29 EDT) Specimen Narrative [facility] E[facility] - 05/30/2017 11:5 5 EDT ? [facility] ? Test Date: ?2017-05-21 Pat Name: ? DAVID MERA ?Department: ?? [facility] ? Room: ? MW531 Gender: ? M ?Clinical Liaison: ?? [id number] : ?1950 ? Requested By: ROBLES Cabral Order Number: [id number] ? Reading MD: ?? ASHLEY CONSUELO MD ? Measurements Intervals ?[place] ? Rate: ? 109 ?P: ? MO: ? 0 ?QRS: ?-41 QRSD: ? 179 [...] Ashley Edwards Jr., MD - 05/30/2017 [facility] Test Date: 2017-05-21 Pat Name: DAVID MERA Department: RANDIVern Pagan Zhanna Room: [facility] Gender: M Clinical Liaison: [id number] : 1950 Requested By: ROBLES Cabral Order Number: [id number] Martha MD: Elsa EDWARDS MD Measurements Intervals [place] Rate: 109 P: MO: 0 QRS: -41 QRSD: 179 T: 175 QT: 391 QTc: 528 Interpretive Statements ELECTRONIC VENTRICULAR PACEMAKER ABNORMAL RHYTHM ECG Compared to ECG 05/21/2017 07:12:25 No significant changes I reviewed the tracing and have either a greed or edited the findings in this report. Electronically Signed On 11:55:09 EDT by ASHLEY EDWARDS MD. Performing Organization Address City/State/ZIP Code Phon e Number [facility] EKG PORTABLE CHEST 1 VIEW (05/21/2017 20:25 EDT) Anatomical Region Laterality Modality Other Specimen Narrative [facility] - 05/21/2017 20:35 EDT [...] Organization Address City/State/ZIP Code Phon e Number [facility] (ABNORMAL) ELECTROLYTES (05/21/2017 20:08 EDT) Pathologist Sig nature Sodium 121 (LL) 136 - 145 mEq/L [facility] SERVICES Potassium 3.7 3.5 - 5.0 mEq/L [facility] SERVICES Chloride 79 (L) 96 - 110 mEq/L [facility] SERVICES CO2 32 22 - 32 mEq/L [facility] SERVICES Specimen Blood specimen (specimen) - Blood Performing Organization Address City/[facility]/ZIP Code Phon e Number [facility] [address] [place] [address] SERVICES PERMANENT PACEMAKER PROCEDURE (05/21/2017 19:42 EDT) Specimen Narrative [facility] EFFINGHAMU S - 05/21/2017 20:01 EDT *Cardiology* [address] [place] [address] Lead Revision Patient: David Mera ? Study Date: ?05/21/2017 ? Accession #: ? [id number] : ? 1950 Referring: Katia Mccallum Attending: [...] and the lead was extracted. A 7 Iranian safety sheath was advanced ov er the [...] topical skin adhesive. IMPLANTED HARDWARE: Implanted device: Speedshape - [employer] [facility] - Serial number: [id number]. Implanted originally on 05-02-2017 . LEAD PARAMETERS + + +---- + + Lead # ? 1 ? 1 ? 2 ? + + +---- + + Chamber ? RA ? RA ? RV ? + + +---- + + Date implanted ?? 05/02/2017 ? 05/21/2017 ? 05/02/2017 ? + + +---- + + Model ? [place] [employer] Medtronic [employer] [place] [employer] 0410 ?? information ? [id number] ? [id number]-59 [id number] ? + + +---- + + Serial number ?? [id number] ? [id number] ? [id number] ? + + +---- + + Location [...] results, any complications, and treatment plan to [facility] and patient support persons who were present at the conclusi on of the procedure. POST PROCEDURAL DISPOSITION: Patient was admitted as an inpatient mello or to this procedure. Electronically signed by Seng Rand MD, PhD 05/21/2017 20:01 Procedure Note Seng Rand MD - 05/21/2017 *Cardiology* [address] [place] [address] Lead Revision Patient: David Mera Study Date: [...] and the lead was extracted. A 7 Iranian safety sheath was advanced ov er the [...] topical skin adhesive. IMPLANTED HARDWARE: Implanted device: Speedshape - [employer] PPM - Serial number: [id number]. Implanted originally on 05-02-2017 . LEAD PARAMETERS + + +---- + + Lead # 1 1 2 + + +---- + + Chamber RA RA RV + + +---- + + Date implanted 05/02/2017 05/21/2017 05/02/2017 + + +---- + + Model [employer] Medtronic [place] [address] [place] [employer] 7742 information 7740 Secure-59 [id number] + + +---- + + Serial number [id number] + + +---- + + [...] results, any complications, and treatment plan to [facility] [address] members and patient support persons who were present at the conclusi on of the procedure. POST PROCEDURAL DISPOSITION: Patient was admitted as an inpatient mello or to this procedure. Electronically signed by Seng Rand MD, PhD 05/21/2017 20:01 Performing Organization Address City/State/ZIP Code Phon e Number [facility] INPATIENT ADD-ON (05/21/2017 18:20 EDT) Pathologist Sig nature Tests to be added FREE T4,TSH [facility] SERVICES Number for problems [id number] [facility] Accession number [id number] [facility] [id number] LABORATORY SERVICES Specimen Other Performing Organization Address City/State/ZIP Code Phon e Number [facility] [address] [place] [address] SERVICES CREATININE, URINE RANDOM (05/21/2017 18:20 EDT) Pathologist Sig nature Creatinine, Urn [place] 26.2 mg/dl [facility] SERVICES Specimen Urine (substance) - Urine Performing Organization Address [facility]/ZIP [facility] Phon e Number [facility] [address] [place] [address] SERVICES PROTEIN, TOTAL, RANDOM, URINE (05/21/2017 18:20 EDT) Pathologist Sig nature Tot Prot,Ur Random 21 mg/dl [facility] SERVICES Specimen Urine (substance) - Urine Performing Organization Address [facility] Phon e Number [facility] [address] [place] [address] SERVICES ECHOCARDIOGRAM LIMITED (05/21/2017 18:19 EDT) Specimen Narrative [facility] CAM[facility] S - 05/22/2017 8:34 EDT *Interpreting Group:* *[facility]* [address] [place] [address] Date of study: 05/21/2017 Transthoracic Echocardiography M-mode, [...] Test stop time: ??07:33 PM. PERFORMING ?? Uvlillyc, Cam COMBINATION WORKER ??Emilia Corey RDCS *PROCEDURE DATA* Procedure information: ??This study was interpreted by [facility]. Pertin ent images and digital data are archived for permanent storage and are a vailable for subsequent review. Study status: ??STAT. Transthoracic echo cardiography. ??M-mode, limited 2D, limited spectral Doppler, and color Doppler. A Transthoracic Echocardiogram was performed. Scanning w as performed from the parasternal, apical, and subcostal acous tic windows. Images were obtained using an Whyteboardq 13 cardiac ultras ound machine. Image quality [...] Rubio MD - 05/22/2017 *Interpreting Group:* *[facility]* [address] [place] [address] Date of study: 05/21/2017 Transthoracic Echocardiography M-mode, [...] stop time: 07:33 PM. PERFORMING Uvmmc, Ip COMBINATION WORKER Emilia Corey RDCS *PROCEDURE DATA* Procedure information: This study was in terpreted by [facility]. Pertin ent images and [...] Rubio MD 05/22/2017 08:34 Performing Organization Address City/State/ZIP Code Phon e Number [facility] TSH (05/21/2017 14:02 EDT) Pathologist Sig nature TSH 0.60 0.47 - 4.68 uIU/ml [facility] SERVICES Specimen Blood Performing Organization Address City/State/ZIP Code Phon e Number [facility] [address] [place] [address] SERVICES T4 FREE (05/21/2017 14:02 EDT) Pathologist Sig nature T4, Free 1.5 0.8 - 2.2 ng/dl [facility] SERVICES Specimen Blood Performing Organization Address City/[facility]/ZIP Code Phon e Number [facility] [address] [place] [address] SERVICES (ABNORMAL) ELECTROLYTES (05/21/2017 14:02 EDT) Pathologist Sig nature Sodium 116 (LL) 136 - 145 mEq/L [facility] SERVICES Potassium 4.1 3.5 - 5.0 mEq/L [facility] Chloride 78 (L) 96 - 110 mEq/L [facility] CO2 28 22 - 32 mEq/L [facility] SERVICES Specimen Blood specimen (specimen) - Blood Performing Organization Address City/State/ZIP Code Phon e Number [facility] [address] [place] [address] SERVICES ECHOCARDIOGRAM (05/21/2017 10:30 EDT) Specimen Narrative [facility] S - 05/21/2017 10:48 EDT *Interpreting Group:* *[facility]* [address] [place] [address] Date of study: 05/21/2017 Transthoracic Echocardiography M-mode, [...] Uvmmc, Ip ORDERING ? Maria Antonia Zimmerman COMBINATION WORKER ??Lizette, Jose G REFERRING ?Katia Mccallum *PROCEDURE DATA* Procedure information: ??The patient was identified by two identifiers. This study was interpreted by [facility]. Pertinent images and [...] Andrade MD - 05/21/2017 *Interpreting Group:* *[facility]* [address] [place] [address] Date of study: 05/21/2017 Transthoracic Echocardiography M-mode, [...] PERFORMING Uvmmc, Ip ORDERING Maria Antonia Zimmerman COMBINATION WORKER Jose G Bauer Katelyn Doran *PROCEDURE DATA* Procedure information: The patient was i dentified by two identifiers. This study was interpreted by [facility]. Pertinent images and digital data are archived for permanent storage and are available for subsequent review. Study status: Routine. Transthoracic echocardiography. M-mode, complete 2D, complete spectral Doppler, and color Doppler. A T ransthoracic Echocardiogram was performed. Scanning was performed from t he parasternal, apical, subcostal, and suprasternal notch acoust ic windows. Images were obtained using an Whyteboardq 13 cardiac ultrasound mach ine. Image quality [...] Organization Address City/State/ZIP Code Phon e Number [facility] (ABNORMAL) ELECTROLYTES (05/21/2017 9:55 EDT) Pathologist [facility] Sodium 117 (LL) 136 - 145 mEq/L [facility] SERVICES Potassium 3.7 3.5 - 5.0 mEq/L [facility] SERVICES Chloride 77 (L) 96 - 110 mEq/L [facility] SERVICES CO2 30 22 - 32 mEq/L [facility] SERVICES Specimen Blood specimen (specimen) - Blood Performing Organization Address City/[facility] Phon e Number [facility] [address] [place] [address] SERVICES EKG 12-LEAD (05/21/2017 7:12 EDT) Specimen Narrative [facility] EKG - 05/23/2017 15:0 4 EDT ? [facility] ? Test Date: ?2017-05-21 Pat Name: ? DAVID MERA ?Department: ?? [facility] 5 ? Room: ? MW531 Gender: ? M ?Clinical Liaison: ?? [id number] : ?1950 ? Requested By: PRADIP MARIA ANTONIA Order Number: [id number] ? Reading MD: ?? SENG PERSON SA MD ? Measurements Intervals ?[place] ? Rate: ? 75 ? P: ?31 MO: ? 173 ?QRS: ?-73 QRSD: ? 183 [...] Seng Brody Sa, MD - 05/23/2017 [facility] r Test Date: 2017-05-21 Pat Name: DAVID MERA Department: BUD Chao Room: [facility] Gender: M Clinical Liaison: [id number] : 1950 Requested By: PRADIP MANNING Order Number: [id number] Martha MD: Nithya PERSON SA, MD Measurements Intervals [place] Rate: 75 P: 31 MO: 173 QRS: -73 QRSD: 183 T: 174 [...] Organization Address City/State/ZIP Code Phon e Number [facility] EKG INPATIENT ADD-ON (05/21/2017 6:55 EDT) Pathologist Sig nature Tests to be added MAGNESIUM [facility] SERVICES Number for problems [id number] [facility] Accession number [id number] [facility] SERVICES Specimen Other Performing Organization Address City/State/ZIP Code Phon e Number [facility] [address] [place] [address] SERVICES INPATIENT ADD-ON (05/21/2017 6:40 EDT) Pathologist Sig nature Tests to be added ALT,ALK [facility] PHOS,AST,TOTAL LABORATORY SERVICES BILI,ALBUMIN Number for problems [id number] [facility] Accession number [id number] [facility] SERVICES Specimen Other Performing Organization Address City/[facility]/ZIP Code Phon e Number [facility] [address] [place] [address] SERVICES MAGNESIUM (05/21/2017 5:57 EDT) Pathologist Sig nature Magnesium 1.8 1.7 - 2.8 mg/dl [facility]A T[facility] SERVICES Specimen Blood Performing Organization Address City/[facility]/ZIP [facility] Phon e Number [facility] [address] [place] [address] SERVICES BILIRUBIN, TOTAL (05/21/2017 5:57 EDT) Pathologist Sig nature Bilirubin, Total 0.6 <1.4 mg/dl [facility] AT[facility] SERVICES Specimen Blood Performing Organization Address [facility]/ZIP Code Phon e Number [facility] [address] [place] [address] SERVICES AST (05/21/2017 5:57 EDT) Pathologist Sig nature AST 33 15 - 46 U/L [facility] SERVICES Specimen Blood Performing Organization Address City/[facility]/ZIP Code Phon e Number [facility] [address] [place] [address] SERVICES ALT (05/21/2017 5:57 EDT) Pathologist Sig nature ALT 39 21 - 72 U/L [facility] SERVICES Specimen Blood Performing Organization Address City/[facility]/ZIP Code Phon e Number [facility] [address] [place] [address] SERVICES ALKALINE PHOSPHATASE (05/21/2017 5:57 EDT) Pathologist Sig nature Total Alkaline 81 38 - 126 U/L [facility] Phosphatase LABORATORY SERVICES Specimen Blood Performing Organization Address City/[facility]/ZIP Code Phon e Number [facility] [address] [place] [address] SERVICES (ABNORMAL) ALBUMIN (05/21/2017 5:57 EDT) Pathologist Sig nature Albumin 3.0 (L) 3.4 - 4.9 g/dl [facility] LABORAT ORY SERVICES Specimen Blood Performing Organization Address City/[facility]/ZIP Code Phon e Number [facility] [address] [place] [address] SERVICES (ABNORMAL) ELECTROLYTES (05/21/2017 5:57 EDT) Pathologist Sig nature Sodium 117 (LL) 136 - 145 mEq/L [facility] SERVICES Potassium 3.5 3.5 - 5.0 mEq/L [facility] Chloride 76 (L) 96 - 110 mEq/L [facility] SERVICES CO2 31 22 - 32 mEq/L [facility] SERVICES Specimen Blood specimen (specimen) - Blood Performing Organization Address [facility] Phon e Number [facility] [address] [place] [address] SERVICES (ABNORMAL) PROTIME (05/21/2017 5:57 EDT) Pro Time 16.3 (H)Comment: NOTE 10.3 - 13.4 [facility] NEW REFERENCE RANGE secs LABORATORY SERVICE S OF APR 03 2017 I.N.R. 1.4 (H) 0.9 - 1.1 [facility] Comment: Ratio LABORATORY SERVICES Moderate Intensity Coumadin INR = 2.0-3.0 Adjustments in anticoagulant therapy dose should be based upon the INR and NOT the Pro Time. Specimen Blood specimen (specimen) - Blood Performing Organization Address [facility] Phon e Number [facility] [address] [place] [address] SERVICES HIV 1/2 ANTIGEN AND ANTIBODY, 4TH GENERATION (05/21/2017 5:57 EDT) HIV 1/2 Antibody Negative Negative [facility] Comment: LABORATORY SERVICES Fourth generation assay performed on the Siemens Centaur. If acute HIV-1 infection is suspected in a high risk patient, submit plasma specimen for HIV-1 RNA quantification test. Specimen Blood specimen (specimen) - Blood Performing Organization Address [facility]/ZIP [facility] Phon e Number [facility] [address] [place] [address] SERVICES (ABNORMAL) BUN (05/21/2017 5:57 EDT) Pathologist Sig nature BUN 5 (L) 10 - 26 mg/dl [facility] LABORATO RY SERVICES Specimen Blood specimen (specimen) - Blood Performing Organization Address [facility] Phon e Number [facility] [address] [place] [address] SERVICES (ABNORMAL) CREATININE (05/21/2017 5:57 EDT) Creatinine 0.43 (L) 0.66 - 1.25 [facility] mg/dl LABORATORY SERVICES GFR, Calculated 120 >60 [facility] Comment: ml/min/1.73m2 LABORATORY eGFR calculated using CKD-EPI equation for SERVICES non Americans. Multiply eGFR by 1.16 for Americans. Specimen Blood specimen (specimen) - Blood Performing Organization Address City/State/ZIP Code Phon e Number [facility] [address] [place] [address] SERVICES (ABNORMAL) HEMAGRAM AND DIFFERENTIAL (05/21/2017 5:57 EDT) Pathologist Sig nature WBC 6.90 4.0 - 10.4 [facility] K/[facility] LABORATORY SERVICES RBC 3.25 (L) 4.36 - 5.78 [facility] M/[facility] LABORATORY SERVICES Hemoglobin 10.9 (L) 13.8 - 17.3 [facility] gm/dl LABORATORY SERVICES HCT 29.7 (L) 39.5 - 50.2 % [facility]OR[facility] SERVICES MCV 91 81 - 95 fl [facility] SERVICES MCH 33.5 (H) 27.6 - 33.0 pg [facility] SERVICES MCHC 36.7 (H) 32.8 - 36.4 [facility] gm/dl LABORATORY SERVICES RDW-CV 10.6 <14.2 % [facility] SERVICES RDW-SD 36.1 <46.0 fl [facility] LABORAT[facility] SERVICES PLT 266 141 - 377 K/[facility] LABORATORY SERVICES MPV 10.7 9.5 - 12.7 fl [facility] SERVICES Neutrophils 61.6 % [facility] SERVICES Lymphocytes 19.0 % [facility] SERVICES Monocytes 16.7 % [facility] SERVICES Eosinophils 1.6 % [facility] SERVICES Basophils 0.7 % [facility] SERVICES Immature Grans 0.4 % [facility] SERVICES ABS Neutrophils 4.25 2.20 - 8.85 [facility] K/[facility] LABORATORY SERVICES ABS Lymphs 1.31 1.09 - 3.30 [facility] LABORATORY SERVICES ABS Monocytes 1.15 (H) 0.1 - 0.8 K/[facility] LABORATORY SERVICES ABS Eosinophils 0.11 0.03 - 0.61 [facility] K/cmm LABORATORY SERVICES ABS Basophils 0.05 0.01 - 0.11 [facility] K/[facility] LABORATORY SERVICES ABS Immature Grans 0.03 0 - 0.06 K/[facility] LABORATORY SERVICES Type of Diff: Automated [facility] SERVICES Specimen Blood specimen (specimen) - Blood Performing Organization Address [facility]/ZIP [facility] Phon e Number [facility] [address] [place] [address] SERVICES (ABNORMAL) ELECTROLYTES (05/21/2017 3:28 EDT) Pathologist [facility] nature Sodium 116 (LL) 136 - 145 mEq/L [facility] SERVICES Potassium 3.3 (L) 3.5 - 5.0 mEq/L [facility] SERVICES Chloride 77 (L) 96 - 110 mEq/L [facility] SERVICES CO2 31 22 - 32 mEq/L [facility] SERVICES Specimen Blood specimen (specimen) - Blood Performing Organization Address City/[facility]/ZIP Code Phon e Number [facility] [address] [place] [address] SERVICES EKG 12-LEAD (05/21/2017 1:25 EDT) Specimen Narrative [facility] EKG - 05/23/2017 10:3 5 EDT ? [facility] ? Test Date: ?2017-05-21 Pat Name: ? DAVID MERA ?Department: ?? [facility] [address] ? Room: ? MW531 Gender: ? M ?Clinical Liaison: ?? [id number] : ?1950 ? Requested By: PRADIP MONET Order Number: [id number] ? Reading : ?? PIERRE RUBIO MD ? Measurements Intervals ?[place] ? Rate: ? 75 ? P: ?13 MO: ? 160 ?QRS: ?-81 QRSD: ? 185 [...] Note Pierre Rubio MD - 05/23/2017 [facility] [facility] Date: 2017-05-21 Pat Name: DAVID MERA Department: BUD Latasha Chao Room: [facility] Gender: M Clinical Liaison: [id number] : 1950 Requested By: PRADIP MANNING Order Number: [id number] Reading MD: Irish RUBIO MD Measurements Intervals [place] Rate: 75 P: 13 MO: 160 QRS: -81 QRSD: 185 T: 171 QT: 495 QTc: 556 Interpretive Statements SINUS RHYTHM WITH ATRIAL TRACKING and VE NTRICULAR PACING Compared to ECG 05/03/2017 04:23:33 No significant changes I reviewed the tracing and have either a greed or edited the findings in this report. Electronically Signed On 10:35:38 EDT by PIERRE RUBIO MD. Performing Organization Address City/[facility]/ZIP Code Phon e Number [facility] EKG INPATIENT ADD-ON (05/21/2017 0:00 EDT) Pathologist Sig nature Tests to be added URINE OSM [facility] Number for problems Not Given [facility] Accession number [id number] [facility] Specimen Other Performing Organization Address [facility]/ZIP [facility] Phon e Number [facility] [address] [place] [address] SERVICES OSMOLALITY, URINE (05/20/2017 23:45 EDT) Pathologist Sig nature Osmolality, Ur 251 150 - 1,150 mos/kg [facility] Specimen Urine Performing Organization Address [facility] Phon e Number [facility] [address] [place] [address] SERVICES SODIUM, URINE RANDOM (05/20/2017 23:45 EDT) Pathologist Sig nature Sodium, Ur 18.0 mEq/L [facility] LABORATOR Y SERVICES Specimen Urine (substance) - Urine Performing Organization Address [facility] Phon e Number [facility] [address] [place] [address] SERVICES CREATININE, URINE RANDOM (05/20/2017 23:45 EDT) Pathologist Sig nature Creatinine, Urn [place] 43.1 mg/dl [facility] Specimen Urine (substance) - Urine Performing Organization Address City/State/ZIP Code Phon e Number [facility] [address] [place] [address] SERVICES POCT US CARDIAC (05/20/2017 22:45 EDT) Anatomical Region Laterality Modality Other Specimen Narrative [facility] - 05/20/2017 23:51 EDT [facility] - Ultrasound Exam Date: 05/20/2017 Exam Type: POCT US CARDIAC Road Worker: Laly Kim MD Attending: Laly Kim MD [...] exam was performed and interpreted by the [facility] ED Staff Procedure Note Laly Kim MD - 05/20/2017 [facility] - Ultrasoun d Exam Date: 05/20/2017 Exam Type: POCT US CARDIAC Road Worker: Laly Kim MD Attending: Laly Kim MD [...] exam was performed and interpreted by the [facility] ED Staff Performing Organization Address City/State/ZIP Code Phon e Number [facility] (ABNORMAL) BASIC METABOLIC PANEL (BMP) (05/20/2017 22:40 EDT) Sodium 116 (LL) 136 - 145 [facility] mEq/L LABORATORY SERVICES Potassium 3.6 3.5 - 5.0 [facility] mEq/L LABORATORY SERVICES Chloride 74 (L) 96 - 110 [facility] mEq/L LABORATORY SERVICES CO2 32 22 - 32 mEq/L [facility] BUN 6 (L) 10 - 26 mg/dl [facility] Creatinine 0.44 (L) 0.66 - 1.25 [facility] mg/dl LABORATORY SERVICES GFR, Calculated 119 >60 [facility] Comment: ml/min/1.73m2 LABORATORY eGFR calculated using CKD-EPI equation for SERVICES non Americans. Multiply eGFR by 1.16 for Americans. Calcium 8.7 8.5 - 10.5 [facility] mg/dl LABORATORY SERVICES Calculated Calcium 9.2 8.5 - 10.5 [facility] mg/dl LABORATORY SERVICES Glucose, Serum 108 (H) 70 - 100 [facility] mg/dl LABORATORY SERVICES Fasting? Unknown [facility] Specimen Blood specimen (specimen) - Blood Performing Organization Address City/State/ZIP Code Phon e Number [facility] [address] [place] [address] SERVICES documented in this encounter Visit Diagnoses [...] DAILY (0900 & 2100), First dose on Fri05/27/17 at 0915, Until [...] mg 0947 (Given - Provider: Rupert Earl, TISH) 0.6 mg, oral, 2 TIMES DAILY, [...] (CANCELED) 0401 (G iven - Provider: Sigrid Gordon RN) 15 mg, intravenous, EVERY 6 HOURS, 20 [...] 05/27/2017 documented in this encounter Care Teams Steam Conditioner Filling Relationship Specialty Start Date End Date Katia Stone PA-C PCP - General 05/02/17 [address] [place] [phone] documented as of this encounter
--- OUTSIDE RECORDS SUMMARY | 2021-12-14 00:29 | XMS_ITS | Encounter Summary ---
:1950 [place] [address] Care Team Providers Name Role Phone Katia Mccallum Primary Care Provider Encounter Details Date Type Department Care Team Description 11/14/2021 Hospital Encounter Non-Invasive Radha Hammond (co [facility] heart Cardiology Lab Andra Hunter MD block) [address] [phone] (Work) [phone] Social History Tobacco Use Types Packs/Day Years Used Date Never Assessed Sex Assigned at Date Recorded Not on file documented as of this encounter Plan of Treatment Not on filedocumented as of this encounter Procedures Procedure Name Priority Date/Time Associated Comments Diagnosis PCM INTERROGATION 3 Routine 11/19/2021 2:52 PM CHB (complete h eart Results for this MONTH EDT block) procedure are i n the results section. documented in this encounter Results PCM INTERROGATION 3 MONTH (11/19/2021 2:52 PM EDT) Anatomical Region Laterality Modality Other Specimen (Source) Anatomical Location Collection Method / Collectio n Time Received Time / Laterality Volume Narrative 11/22/2021 10:04 AM EDT Outpatient remote interrogation report: See full report as a linked pdf document Date of transmission: 11/14/21 Device picker: BS Device type: DC PM Presenting rhythm: apvp AP 56% SUPERVISOR SOLDER MAKING 100% - no LV functional assessment in our system. ??Recommend echo at time of DIONICIO work up (1 year to DIONICIO) Battery: 1 years Episodes: Episode of CARLOS (likely) on 10/22/21 Stable lead trends. Activity OK Radha Hammond MD 11/22/2021 10:01 AM Radha Hammond MD IMPLANTABLE CARDIAC DEVICE documented in this encounter Visit Diagnoses Diagnosis CHB (complete heart block) Atrioventricular block, complete documented in this encounter Care Teams Route Salesman Relationship Specialty Start Date End Date Katia Mccallum PA PCP - General General Internal Medicine 11/10/[address] [place] [phone] documented as of this encounter
--- OUTSIDE RECORDS SUMMARY | 2021-12-14 00:29 | XMS_ITS | Encounter Summary ---
:1950 Author Organization [facility] [place] [address] Care Team Providers Name Role Phone Katia Mccallum Primary Care Provider Reason for Referral Diagnostic Test (Routine) - Closed Specialty Diagnoses / Procedures Referred By Contact Refer red To Contact Radiology Diagnoses Abdominal visceral abscess Virginia Price, [facility] Rad Ct Scan Procedures CT Guided Drain Peritoneal [address] [place] [address] [address] [place] [id number] Referral ID Status Reason Start Date Expiration Date Visits V isits Requested Authorized [id number] Closed Specialty 07/09/2021 01/09/2023 1 1 Service Requested Reason for Visit Diagnostic Test (Routine) - Closed Specialty Diagnoses / Procedures Referred By Contact Refer red To Contact Radiology Diagnoses Abdominal visceral abscess Virginia Price DO [facility] Rad Ct Scan Procedures CT Guided Drain Peritoneal [address] [place] [address] [address] [place] [id number] Referral ID Status Reason Start Date Expiration Date Visits V isits Requested Authorized [id number] Closed Specialty 07/09/2021 01/09/2023 1 1 Service Requested Encounter Details Date Type Department Care Team Description 07/10/[address] Scan at [facility] Virginia Price, Abdominal visceral [facility] abscess (Primary Dx) Drive [address] [place] [address] MELISSA Reddy 1 [phone] [place] [address] Social History Tobacco Use Types Packs/Day Years [...] is during regular office hours, please call [phone]. If it is after regular office hours, oron weekends or holidays, please call [phone] and ask to speak to the Training Administrator on callfor Interventional Radiology. XX You have [...] of : 1950 AGE: 70 y.o. [facility] [address] [place] [address] (home) Mobile: No relevant phone numbers on file. Referring Provider: Virginia Price REASON FOR VISIT: Order Questions Answers Where will study be performed? [facility] Radiology [120] Is the patient on anticoagulant [...] Questions Answers Where will study be performed? [facility] Radiology [120] Is the patient on anticoagulant / antiplatelet therapy ? No Does the patient have any pertinent outside imaging? Yes Reason for exam and clinical history: CT guided drainag plmt of abdominal abscess. Possible drainageof left chest fluid collection. Clinical information / acstillo questions for radiologist: Outside order- in media [...] Questions Answers Where will study be performed? [facility] Radiology [120] Is the patient on anticoagulant [...] Complications: No immediate Plan/Disposition: Return to [facility] GB fossa drain to bulb suction Left [...] of cloudy brown fluid. 2. ??Left-sided 10 Ukrainian chest tube guicho cement, yielding 30 mL of cloudy brown. Plan: 1. ??To IR recovery then transfer back [facility]. 2. ??Awaiting return call from reji [...] have questions please contact the health child day care provider that requested your imaging first. ? Electronically signed by: Vick domingo MD, [facility] ([phone]), at 07/11/2021 10:21 AM Narrative 07/11/2021 10:21 [...] IMPRESSION 1. Percutaneous placement of a 10 Ukrainian drainage catheter into gallbladder fossa abscess/biloma, yielding 120 mL of cloudy brown fluid. 2. Left-sided [address] ment, yielding 30 mL of cloudy brown. Plan: 1. To IR recovery then transfer back to [facility]. 2. Awaiting return call from [...] have questions please contact the health child day care provider that requested your imaging first. Virginia Price [...] of cloudy brown fluid. 2. ??Left-sided 10 Ukrainian chest tube guicho cement, yielding 30 mL of cloudy brown. Plan: 1. ??To IR recovery then transfer back [facility]. 2. ??Awaiting return call from reji [...] Standardized report: SIR_DrainPlacement_ v3 Attestation Signer name: Vcik Boss MD I attest that I performed [...] have questions please contact the health child day care provider that requested your imaging first. ? Electronically signed by: Vick domingo MD, [facility] ([phone]), at 07/11/2021 10:21 AM Narrative 07/11/2021 10:21 [...] IMPRESSION 1. Percutaneous placement of a 10 Ukrainian drainage catheter into gallbladder fossa abscess/biloma, yielding 120 mL of cloudy brown fluid. 2. Left-sided [address] ment, yielding 30 mL of cloudy brown. Plan: 1. To IR recovery then transfer back to [facility]. 2. Awaiting return call from [...] have questions please contact the health child day care provider that requested your imaging first. Virginia Price DO IMG CT ORDERABLES Anaerobic Culture (07/10/2021 11:45 AM EDT) [facility] Method Time Signature Anaerobic No anaerobic [facility] Culture organisms [facility] LABORATORY Specimen Anatomical Collection Method Collection Time Receive d Time (Source) Location / / Volume Laterality Fluid 07/10/2021 11:45 07/10/2021 AM EDT 12:24 PM EDT Comment: Left chest tube placement. Resulting Agency Comment Spec In Lab Vick Boss MD MICROBIOLOGY - GENERAL ORDER [facility] Performing Organization Address City/State/ZIP [place] [address] Body Fluid Culture, Aerobic (07/10/2021 11:45 AM EDT) Component Value Ref Test Analysis Performed At [facility] Range Method Time Signature Body Fluid No growth TAJ Culture [facility]OR[facility] Gram Stain Cytocentrifuge Gram Stain performed [facility] No Neutrophils seen. [facility] No microorganisms seen. [facility] LABOR[facility] Specimen Anatomical Collection Method Collection Time Receive d Time (Source) Location / / Volume Laterality Fluid 07/10/2021 11:45 07/10/2021 AM EDT 12:24 PM EDT Comment: Left chest tube placement. Resulting Agency Comment Spec In Lab Vick Boss MD MICROBIOLOGY - GENERAL ORDER [facility] Performing Organization Address City/State/ZIP [place] [address] Anaerobic Culture (07/10/2021 11:20 AM EDT) [facility] Method Time Signature Anaerobic No anaerobic TAJ [facility] Culture organisms [facility] [...] Organization Address City/State/[place] [address] (ABNORMAL) Body Fluid Culture, Aerobic (07/10/2021 11:20 AM EDT) Component Value Ref Test Analysis Performed At [facility] Range Method Time Signature Body Fluid Few Escherichia TAJ Culture coli (A) [facility] Gram Stain Cytocentrifuge Gram Stain performed TAJ [place] Few Gram Negative Rods [place] [facility] Organism Escherichia coli TAJ (A) [facility] LABOR[facility] Specimen (Source) Anatomical Collection Method Collection [...] Organization Address City/State/[place] [address] documented in this encounter [...] mg documented in this encounter Care Teams Machine Packager Relationship Specialty Start Date End Date Katia Mccallum PA PCP - General General Internal Medicine 11/10/[address] [place] [phone] documented as of this encounter
--- OUTSIDE RECORDS SUMMARY | 2021-12-14 00:29 | XMS_ITS | Encounter Summary ---
:[address] [facility] Address [address] [place] [address] Care Team Providers Name Role Phone Katia [...] on filedocumented in this encounter Care Teams Lip Of Shank Cutter Relationship Specialty Start Date End Date Katia Stone, PABijalC PCP - General 05/02/[address] [place] [phone] documented as of this encounter
--- OUTSIDE RECORDS SUMMARY | 2021-12-14 00:29 | XMS_ITS | Encounter Summary ---
:1950 [place] [address] Care Team Providers Name Role Phone Katia Mccallum Primary Care Provider Encounter Details Date Type Department Care Team Description 07/09/2021 Ancillary Procedure Radiology Library at [facility], And beti Steward [facility] [place] [address] [place] [address] [phone] (Wo rk) Social History Tobacco Use Types [...] Time Received Time / Laterality Volume Narrative [facility] - 07/09/2021 1:33 PM EDT This exam is auto-finalizing. It's purpo se is for storage only. Nolan Beth MD [facility] FILM LIBRARY ORDERABLES Performing Organization Address City/State/ZIP Code Phon e Number [place], [place] documented in this encounter Visit Diagnoses Not on filedocumented in this encounter Care Teams Tobacco Drummer Relationship Specialty Start Date End Date Katia Mccallum PA PCP - General General Internal Medicine 11/10/[address] [place] [phone] documented as of this encounter
--- OUTSIDE RECORDS SUMMARY | 2021-12-14 00:29 | XMS_ITS | Encounter Summary ---
:1950 Author Organization [facility] [place] [address] Care Team Providers Name Role Phone Katia Mccallum Primary Care Provider Encounter Details Date Type Department Care Team Description 07/23/2021 Notes Only Radiology at [facility] Mykel Stern [facility] [place] [address] RADIOLOGY [phone] [place], [place] [address] (Wo rk) Social History Tobacco [...] were requested by Dr. Virginia Price of . Unclear follow up in our system; will [...] Chest Tube/Pleural Drain 07/10/2021 Vick Boss MD [facility] RAD CT SCAN ??? CT PERITONEAL DRAINAGE 07/10/2021 CT Guided Drain Peritoneal 07/10/2021 Vick Boss MD [facility] RAD CT SCAN Medications: Allergies: Patient has [...] on filedocumented in this encounter Care Teams Greenhouse Assistant Relationship Specialty Start Date End Date Katia Mccallum PA PCP - General General Internal Medicine 11/10/[address] [place] [phone] documented as of this encounter
--- OUTSIDE RECORDS SUMMARY | 2021-12-14 00:29 | XMS_ITS | Encounter Summary ---
:1950 Author Organization [facility] Address [address] [place] [address] Care Team Providers Name Role Phone None, Provider Primary Care Provider Unavailable Katia Stone PA-C Primary Care Provider Reason for Referral (Routine) - Receiving Office to Obtain Authorization Specialty Diagnoses / Procedures Referred By Contact Refer effie To Contact Kaity Yañez NP [address] [place] [phone] Referral ID Status Reason Start Expiration Visits Visits Date Date Requested Authorized [id number] Receiving Office Specialty 05/02/2017 1 1 to [...] Diagnoses / Procedures Referred By Contact Refer effie To Contact Kaity Yañez NP [address] [place] [phone] Referral ID Status Reason Start Expiration Visits Visits Date Date Requested Authorized [id number] Receiving Office Specialty 05/02/2017 1 1 to Obtain Services Authorization Required Comments You must contact us if we have not conta cted you or you have missed your scheduled appointment. If you have any nursing questions, joy gauthier don't hesitate to call the Cardiac Arrhythmia Service at [facility] at [phone] or , extension [phone]. For any scheduling of appointments, juliette kitchen call [phone] or , extension [phone]. . (Routine) - Receiving Office to Obtain Authorization Specialty Diagnoses / Procedures Referred By Contact Dian chou To Contact Kaity Yañez NP [address] [phone] Referral ID Status Reason Start Expiration Visits Visits Date Date Requested Authorized [id number] Receiving Office Specialty 05/02/2017 1 1 to Obtain Services Authorization Required Comments Appointment on May 13, 2017 at 9 am for an incision site check with the nurse in the device clinic at [facility]. Phone [phone]. [facility] is located at [address] [place] [address] (Routine) - Receiving Office to Obtain Authorization Specialty Diagnoses / Procedures Referred By Contact Dian chou To Contact Kaity Yañez NP [address] [phone] Referral ID Status Reason Start Expiration Visits Visits Date Date Requested Authorized [id number] Receiving Office Specialty 05/02/2017 1 1 to [...] scheduled at your first appointment. - [facility] Cardiology is located at [address] [facility] in [place] -Clinics are also held in [facility], [place], [place] and [facility]. I f you live in those areas, we will make arrangements for follow-up appointments in one of those clinics.. Reason for Visit Reason Comments Bradycardia Pt transferred from [place] with new complete heart block. VSS on arrival. CC DOBBS. Encounter Details Date Type Department Care Team Description 04/30/2017 - [facility] Yvon Fields MD [address] [phone] Heart block AV third degree (CMS-HCC) (H CC-CMS) (Primary Dx); 05/04/2017 Encounter Cardiac/Telemetry Kenneth House MD [address] [place] [phone] Acute on chronic diastolic congestive he art failure (CMS-HCC) (HCC-CMS) Unit Houston Corey MD 111 [facility] [address] [place] [address] [place] [address] Social History Tobacco Use Types Packs/Day [...] Principal/Final Diagnosis: Heart block AV third degree ([facility]) Additional Problems Managed in the Hospital Active Hospital Problems Diagnosis Date Noted ??? *Heart block AV third degree ([facility]) 04/30/2017 ??? Hypertensive urgency 05/01/2017 ??? Acute on chronic diastolic congestive heart failure ([facility]) 05/01/2017 Resolved Hospital Problems Diagnosis Date Noted Date Resolved No resolved problems to display. Principal Procedure: PPM 05/02/17 Secondary Procedures: none Hospital Course: David Mera is a 66 y.o. male with no known PMH transferred from [facility] on 04/30/17 for complete heart block. 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 He complianed of 2-3 months of SOB which worsened 2-3 weeks prior to admission and reached critical point 2-3 days prior to admission when he had symptoms at rest with 3 pillow orthopnea and mild increased LE swelling prompting presentation to [facility]. On arrival to ED he was afebrile, HR 58, BP 190/103 with negative labs. ECHO showed EF 65% with moderate concentric LVH, mild LA dilation and mild AST/TR. His HRdropped to the 30s prompting transfer to [facility]. On arrival here patient was asymptomatic with [...] Post Hospital Visit with Caitie Atwood NP [facility] Cardiology - [facility] (--) [address] [place] [address] Follow-up appointments and procedures Pacemaker check Your [...] scheduled at your first appointment. - [facility] Cardiology is located at [address] in [place] -Clinics are also held in [facility], and [facility]. If you live in those areas, we [...] the nurse in the device clinic at [facility]. Phone [phone]. [facility] is located at [address] [place] [address] Authorizing Provider: Coleen Yañez NP ~Please note: You must contact us if we have not contacted you or you have missed your scheduled appointment. If you have any nursing questions, please don't hesitate to call the Cardiac Arrhythmia Service at [facility] at or , extension [phone]. For any scheduling of appointments, please call [phone] or , extension [phone]. . Authorizing Provider: Coleen Yañez NP Additional Information: Appointment on May 13, 2017 at 9 am for an incision site check with the nurse in the device clinic at the [facility]. . [facility] is located at [address] [place] [address] . You have an appointment with Katia Mccallum PA-C at [facility] on 05/29/2017 at 1:00 pm. If you have questions or need to reschedule your appointment, please call [phone]. Please arrive 15 minutes early to complete any necessary. Bring a copy of this AVS Summary with you. Cardiology follow up on June 16, 2017 at 2:[address] Torres at the [facility]. [facility] is located at [address] [place] [address]. Pacemaker device check on August 05, 2017 at 10 am at the [facility]. [facility] islocated at [address] [place] [address]. Discharge Handoff Communication I called Katia Mccallum's office the day prior to discharge for verbal sign out and left contact information for call back, though my call has not yet been returned. Amelia Partida, Internal Medicine Resident PGY-3 [phone] 05/04/17 10:31 [...] nurse in the device clinic at the [facility]. . [facility] is located at [address] [place] [address] . You have an appointment with Katia Mccallum PA-C at [facility] on 05/29/2017 at 1:00 pm. If you have questions or need to reschedule your appointment, please call [phone]. Please arrive 15 minutes early to complete any necessary. Bring a copy of this AVS Summary with you. Cardiology follow up on June 16, 2017 at 2:[address] Torres at the [facility]. [facility] is located at [address] [place] [address]. Pacemaker device check on August 05, 2017 at 10 am at the [facility]. [facility] islocated at [address] [place] [address]. Discharge Instr - Other Melida Mas RN - 05/01/2017 9:18 EST Remember the [...] at least every q 2 hours. Additional InstructionsGrAmelia hammer MD - 05/03/2017 14:14 EST Remember the [...] through Care Everywhere. HEART FAILURE: AVOIDING TRIGGERS (KENYAN)documented in this encounter Medications at Time of Discharge Medication Sig Dispensed Refills Start Date End Date amLODIPine (NORVASC) 10 mg Take 1 Tab by 90 Tab 3 201705/20/2017 tablet mouth daily. chlorthalidone (HYGROTON) Take 1 Tab by 90 Tab 3 018 05/20/2017 25 mg tablet mouth daily. documented as of this encounter Ordered Prescriptions Prescription Sig Dispensed Refills Start Date End Date chlorthalidone (HYGROTON) Take 1 Tab by 90 Tab 3 05/05/ 018 05/20/2017 25 mg tablet mouth daily. amLODIPine (NORVASC) 10 mg Take 1 Tab by 90 Tab 3 201705/20/2017 tablet mouth daily. chlorthalidone (HYGROTON) Take 1 Tab by 90 Tab 3 018 05/04/2017 25 mg tablet mouth daily. amLODIPine (NORVASC) 10 mg Take 1 Tab by 90 Tab 3 201705/04/2017 tablet mouth daily. documented in this encounter Discharge Disposition Disposition Code Departure Means Destination Home or Self Care documented in this encounter Progress Notes Amelia Partida MD - 05/04/2017 1500 EST I spoke with environmental services specialist CM regarding patient's lack of electricity at his home. She recommended I contact patient's PCP, [facility] for further assistance, but that no other action could bemade on Friday. Was unable to leave message for their office today and efforts to contact them on 05/02 were met with unreturned messages. I have instructed patient to call their office on Friday to be connected to health care social worker. Amelia Partida, Internal Medicine Resident PGY-3 [phone] [...] office. I gave Mr Argueta information on . He signed his IM. His son will pick him up at [place]. GAEL TEIXEIRA RN Case Manager #[id number] elia Ramey MD - 05/04/2017 1204 EST [...] Imaging: no new imaging Assessment/Plan Assessment David Mera is a 66 y.o. male with no known PMH admitted in transfer 04/30/17 from [facility] for asymptomatic complete heart block and HTN [...] criteria per night team Subjective/Objective Subjective Mr. Mera reports feeling fine. He has some chest tenderness around the PPM site but denies any chest pain or shortness of breath currently. He felt sore overnight. No real complaints this morning. Hereports he uses the [facility] in [place]. Review of Systems Pertinent items are noted [...] Imaging: no new imaging Assessment/Plan Assessment David Mera is a 66 y.o. male with no known PMH admitted in transfer 04/30/17 from [facility] for asymptomatic complete heart block and HTN [...] been connected with Katia Mccallum PA-C for [facility] primary care on 05/29 at 1pm Radha Lowery MD Internal Medicine PGY-2 Pager #[phone] 05/03/2017 13:15 Associated attestation - Houston Corey MD - 05/05/2017 1043 EST Attestation statement: I saw and examined the patient with the resident/fellow. I agree with the findings and plan of care documented in the resident's/fellow's note. Patient seen on 05/02/17 Desi Villatoro RN - 05/02/2017 1000 EST 05/02: Patient has an appointment with Katia Mccallum PA-C at [facility] on 05/29/2017 at 1:00 to establish care. [...] Chest x-ray was negative Assessment/Plan Assessment David Mera is a 66 y.o. male with no known PMH admitted in transfer 04/30/17 from [facility] for asymptomatic complete heart block and HTN [...] of care documented in the resident's/fellow's note. Ivelisse Rueda - 05/01/2017 1229 EST Initial Case Management/Social Work Assessment and Discharge Plan/Readmission Risk Assessment REASON FOR ADMISSION: Heart block AV third degree (CMS-HCC) Patient understands reason for admission: PATIENT CONTACT INFO VERIFIED: Yes (Eva Rudolph [phone]) PATIENT ADDRESS VERIFIED: Yes LIVING ARRANGEMENTS AND ACCESSIBILITY ISSUES: Living Arrangements: Alone Levels: 1 Stairs to enter: 2 Handicap access: None Bathroom located on bedroom level?: Yes What in home social supports are available to the patient? Friends / neighbors. Patient lives alone in a mobile home in [place]. He has no immediate family and depends [...] For Finances: No TRANSPORTATION: Transportation: Family CULTURAL, CHURCH and/or LANGUAGE factors affecting health care/discharge planning: [...] PCP Verified: Yes (Patient has gone to [facility] in the past to see Dr. Garcia who has since retired.) Specialists: None Type of Home Health Services: None DME Provider: None Pharmacy: [facility] - [address] - [place], [place] - [address] [facility] [phone] Home Health: None Other: POST HOSPITAL TRANSITION PLAN: Case management will continue to follow through transition to discharge. Anticipate discharge to home when medically stable. No needs are identified at this time. Patientsaid he has a friend who can provide transportation home. Ivelisse Rueda heat treating bluer #[phone] Reba Darnell, [facility] - 05/01/2017 1111 EST Transitions of Care - Pharmacy Admission Medication Reconciliation David Mera is a 66 y.o. male admitted on 04/30/2017 for Heart block AV third degree ([facility]) Pharmacist Interventions/Recommendations: 1. Per patient report, the only medication he was taking prior to admission was ibuprofen 400mg daily for knee pain. Counseled patient to stop taking ibuprofen/NSAIDs as they are harmful to the heart and raise blood pressure-->recommended using acetaminophen for pain instead. 2. Confirmed patient would like to use [facility] in [place], [place] at discharge> please send all discharge prescriptions here. 3. Paged team with findings. Medication History Obtained from: Patient (Self) Medication reconciliation was performed. Discrepancies are noted in BOLD. Clarifications are noted in RED. Medications No prescriptions prior to admission. Additional Prior to Admission [id number]-[id number] Products as noted by Patient/Family: Ibuprofen 400mg daily for knee pain Preferred Pharmacy: [facility] - [place], [place] Barriers to Learning: None apparent Barriers to Obtaining Medications: None apparent Barriers to Taking Medications: None apparent Please feel free to contact me or the Transitions of Care Pharmacy Team with questions or concerns. Thank you Reba Tanya Marie, [facility] [phone] Pager: [phone] Houston Corey MD - 05/01/2017 0729 EST [...] Chest x-ray was negative Assessment/Plan Assessment David Mera is a 66 y.o. male with no known PMH admitted in transfer 04/30/17 from [facility] for asymptomatic complete heart block and HTN [...] PPM Patient discussed with Dr. Yang. Amelia Partida DO Internal Medicine Resident PGY-3 [phone] 05/01/17 11:16 Attestation statement: Supervising Physician I saw and examined Mr. Mera on May 01, 2017 on morning rounds with the EP service. I agree with the history, physical and the assessment plans as outlined above. 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 male with no known PMH who presents in transfer from [place] for complete heart block. Briefly, patient last saw a doctor approximately 12 years ago after he was admitted for LA rule out in [place]. He reports having a stress at that time though does not recall being told it was abnormaland was not discharged on any medications. He saw a applications systems engineer once in follow-up and has not had medical care since that time. He has no known PMH and takes no medications. Patient states that in January 2017 he got caught in a [place]OW[place] downpour while hunting and feels that he has had persistent URI with DOBBS since that time. His symptoms worsened for 2-3 weeks prior toadmission and reached a critical point 2-3 days prior to admission when he has had SOB at rest, associated 3 pillow orthopnea and mild increased LE edema causing him to present to the ED. On arrival [facility], patient was afebrile HR 58, RR [...] ASA 324 mg prior to transfer to [facility]. On arrival here, he was alert [...] remote stress test 12 years ago in [place] Review of Systems A 10 point review of systems was discussed and is negative aside from what is noted in HPI. PMH: none PSH: benign tumor removal R forearm, L knee arthroscopy Family History: no history of early CAD/ LA or heart block Social History: Lifetime non-smoker, currently chews tobacco (1 can lasts 2-3 days). 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 Never had DTs or withdrawal seizures. 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 Chest x-ray was negative ASSESSMENT: David Mera is a 66 y.o. male with no known PMH who presents in transfer from [place] for completeheart block. He is currently asymptomatic [...] course Patient discussed with Dr. Hawkins. Amelia Partida, Internal Medicine Resident PGY-2 [phone] 04/30/17 18:13 Attestation statement: Supervising Physician I saw and examined with the EPS on 04/30/2017. I agree with the history and assessment as described above. documented in this encounter Procedure Notes Tony Rosenberg MD - 05/02/2017 0929 EST BSI MR compatible DDD PPM inserted via the left axillary vein. Complications: none Full note to follow Surgeon: Winget documented in this encounter ED Notes Kenneth House MD - 04/30/2017 1719 EST DOS: 04/30/2017 Chief Complaint Patient presents with ??? Bradycardia Pt transferred from [place] with new complete heart block. VSS on arrival. CC DOBBS. HPI HPI Comments: I, Maite Schmitt, am scribing for Kenneth House MD while he/she is personally performing the service. Maite Schmitt 04/30/2017 17:19 David Mera is a 66 y.o. male with a history of heart block AV third degree who presents to the EDwith bradycardia. The patient was transferred from [place] with complaints of dyspnea on exertion and [...] ER after EKG, whom referred him to [facility] for pacemaker placement. Denies CP, vomiting, [...] with bradycardia. The patient was transferred from [place] with complaints of dyspnea on exertion and [...] ER after EKG, whom referred him to [facility] for pacemaker placement. Denies CP, vomiting, [...] Scribe under the direction and presenceof Kenneth House MD. Kenneth House MD: I personally performed the services recorded by the scribe in my presence. Iconfirm the scribe's documentation has been reviewed by me to accurately and completely record my work, treatment, procedures, and medical decision making. 04/30/2017 17:19 No flowsheet data found. Damir Wilson - 04/30/2017 1615 EST TCALL: DAVID MERA [address] SOBIA ESCALONA. 67YOM W/3' HEART BLOCK - COREY W/ CARDS ACCEPTING. NOTE TAKEN [facility] HOUSE ([facility] documented in this encounter Miscellaneous Notes Plan of Care - Katie Smith RN - 05/04/2017 1806 EST Problem: Daily Care Plan Goals Goal: Care Plan Documentation Outcome: Ongoing 05/04/17 0842 Care Plan Focus Area of Focus Circulatory Status Goal This Shift VSS MW514/02 EdeDavid 66 y.o. male Length of Stay: 4 [...] AVS received. Pt left with son and vniqxgru-uw-uwt via wheelchair. BP 115/79 (BP Cuff Location: Right arm, Patient Position: Semi fowlers) Pulse 70 Temp 36.4 ??C (97.5 ??F) (Tympanic) Resp 18 Ht 180.3 cm (71) Wt 99.8 kg (220 lb) SpO2 99% BMI 30.68 kg/m2 lan of Aury Phipps RN - 05/03/2017 1523 EST Problem: Daily [...] lan of Don Lovelace RN - 05/02/2017 2345 EST Problem: Daily Care Plan Goals Goal: [...] DON ALVARADO RN 05/02/2017 23:42 lan of Ottoniel - Aury Matias RN - 05/02/2017 1747 [...] AURY MATIAS RN 05/02/2017 17:43 lan of Ottoniel - Don Alvarado RN - 05/02/2017 0516 [...] 05/01/2017 16:03 lan of Care - Fransico Cehw RN - 05/01/2017 0308 EST Problem: Daily Care Plan Goals Goal: Care Plan Documentation Outcome: Ongoing 05/01/17 0120 Care Plan Focus Area of Focus Circulatory Status Goal This Shift VSS, monitor tele D: Patient arrived to [place] [address] at 1900. Vital signs noted, BP 180s/80s. [...] EST) Glucose, 104 (H) 70 - 100 [facility] Fingerstick mg/dl LABORATORY SERVICES Pastry Wrapper [place] [id number]: [facility] Test Performed by LABORATORY Nursing Services SERVICES Specimen Blood Performing Organization Address [facility] LABORATORY [address] [place] [address] SERVICES CREATININE (05/03/2017 5:42 EST) Creatinine 0.67 0.66 - 1.25 [facility] mg/dl LABORATORY SERVICES GFR, Calculated 100 >60 [facility] Comment: ml/min/1.73m2 LABORATORY eGFR calculated using CKD-EPI equation for SERVICES non Americans. Multiply eGFR by 1.16 for Americans. Specimen Blood specimen (specimen) - Blood Performing Organization Address [facility] LABORATORY [address] [place] [address] SERVICES (ABNORMAL) BUN (05/03/2017 5:42 EST) Pathologist Sig nature BUN 8 (L) 10 - 26 mg/dl [facility] LABORATO RY SERVICES Specimen Blood specimen (specimen) - Blood Performing Organization Address [facility] LABORATORY [address] [place] [address] SERVICES (ABNORMAL) ELECTROLYTES (05/03/2017 5:42 EST) Pathologist Sig nature Sodium 134 (L) 136 - 145 mEq/L [facility] LABORA TORY SERVICES Potassium 4.2 3.5 - 5.0 mEq/L [facility] LABORA TORY SERVICES Chloride 99 96 - 110 mEq/L [facility] LABORAT ORY SERVICES CO2 26 22 - 32 mEq/L [facility] LABORATO RY SERVICES Specimen Blood specimen (specimen) - Blood Performing Organization Address [facility] LABORATORY [address] [place] [address] SERVICES (ABNORMAL) HEMAGRAM (05/03/2017 5:42 EST) Pathologist Sig nature WBC 7.95 4.0 - 10.4 K/cmm [facility] LABORATORY SERVICES RBC 3.97 (L) 4.36 - 5.78 M/cmm [facility] LABORATORY SERVICES Hemoglobin 13.3 (L) 13.8 - 17.3 gm/dl [facility] LABORATORY SERVICES HCT 38.4 (L) 39.5 - 50.2 % [facility] LABORATORY SERVICES MCV 97 (H) 81 - 95 fl [facility] LABORATORY SERVICES MCH 33.5 (H) 27.6 - 33.0 pg [facility] LABORATORY SERVICES MCHC 34.6 32.8 - 36.4 gm/dl [facility] LABORATORY SERVICES RDW-CV 11.9 <14.2 % [facility] LABORATORY SERVICES RDW-SD 42.4 <46.0 fl [facility] LABORATORY SERVICES PLT 196 141 - 377 K/cmm [facility] LABORATORY SERVICES MPV 12.6 9.5 - 12.7 fl [facility] LABORATORY SERVICES Specimen Blood specimen (specimen) - Blood Performing Organization Address City/State/ZIP Code Phon e Number [facility] LABORATORY [address] [place] [address] SERVICES EKG 12-LEAD (05/03/2017 4:23 EST) Specimen Narrative [facility] EKG - 05/09/2017 13:4 7 EST ? [facility] ? Test Date: ?2017-05-03 Pat Name: ? DAVID MERA ?Department: ?? [facility] ? Room: ? MW514 Gender: ? M ?Canary Breeder: ?? [id number] : ?1950 ? Requested By: MARIO ALBERTO SCANLON Order Number: [id number] ? Reading : ?? SENG PERSON SA, MD ? Measurements Intervals ?[place] ? Rate: ? 75 ? P: ?51 MD: ? 172 ?QRS: ?-77 QRSD: ? 172 [...] Seng Brody Sa, MD - 05/09/2017 [facility] Test Date: 2017-05-03 Pat Name: DAVID MERA Department: BUD Chao Room: [facility] Gender: M Canary Breeder: [id number] : 1950 Requested By: MARIO ALBERTO GHISLAINE Order Number: [id number] Reading MD: Nithya PERSON SA, MD Measurements Intervals [place] Rate: 75 P: 51 MD: 172 QRS: -77 QRSD: 172 T: 92 QT: 469 QTc: 525 Interpretive Statements ELECTRONIC VENTRICULAR PACEMAKER ABNORMAL RHYTHM ECG Automated Interpretation. Provider Inter pretation to follow. Compared to ECG 05/02/2017 10:10:30 No significant changes I reviewed the tracing and have either a greed or edited the findings in this report. Electronically Signed On 13:47:58 EST by SENG PERSON SA, MD. Performing Organization Address City[facility]/ZIP Code Phon e Number [facility] EKG PORTABLE CHEST 1 VIEW (05/02/2017 10:27 EST) Anatomical Region Laterality Modality Other Specimen Narrative [facility] RADIOLOGY MAIN CAMPUS - 05/02/2017 10:51 EST PORTABLE CHEST 1 [...] City/State/ZIP Code Phon e Number [facility] RADIOLOGY MAIN CAMPUS EKG 12-LEAD (05/02/2017 10:10 EST) Specimen Narrative [facility] EKG - 05/08/2017 8:22 EST ? [facility] ? Test Date: ?2017-05-02 Pat Name: ? DAVID MERA ?Department: ?? [place] 5 ? Room: ? MW514 Gender: ? M ?Canary Breeder: ?? [id number] : ?1950 ? Requested By: JORGE Martinez Order Number: [id number] ? Reading MD: ?? LALY WEAVER MD ? Measurements Intervals ?[place] ? Rate: ? 63 ? P: ?40 MD: ? 170 ?QRS: ?-72 QRSD: ? 180 ?T: ?86 QT: ? 492 ? QTc: ?504 ? Interpretive Statements DUAL CHAMBER PACER ELECTRONIC VENTRICULAR PACEMAKER I reviewed the tracing and have either a greed or edited the findings in this report. Electronically Signed On 08:22:30 EST by LALY WEAVER MD. Procedure Note Laly Weaver MD - 05/08/2017 [facility] Test Date: 2017-05-02 Pat Name: DAVID MERA Department: [facility] Latasha Chao Room: [facility] Gender: M Canary Breeder: [id number] : 1950 Requested By: JORGE Martinez Order Number: [id number] Martha MD: Elsa WEAVER MD Measurements Intervals [place] Rate: 63 P: 40 MD: 170 QRS: -72 QRSD: 180 T: 86 QT: 492 QTc: 504 Interpretive Statements DUAL CHAMBER PACER ELECTRONIC VENTRICULAR PACEMAKER I reviewed the tracing and have either a greed or edited the findings in this report. Electronically Signed On 08:22:30 EST by LALY WEAVER MD. Performing Organization Address City/State/ZIP Code Phon e Number [facility] EKG PERMANENT PACEMAKER PROCEDURE (05/02/2017 10:00 EST) Specimen Narrative [facility] CARDIOLOGY MAIN CAMPU S - 05/02/2017 11:24 EST *Cardiology* [address] [place] [address] Device Implantation Patient: David Mera ? Study Date: ?05/02/2017 ? Accession #: ? [id number] : ? 1950 Referring: Attending: Tony Rosenberg [...] atrioventricular blo ck. HISTORY AND INDICATIONS: ??Mr. Mera pr esents with complete heart block. PROCEDURE: [...] HARDWARE: Implanted device: Clifford Appiah Serial number: [id number]. LEAD PARAMETERS + + ----+ + Lead # ? 1 ? 2 ? + + ----+ + Chamber ? RA ? RV ? + + ----+ + Date implanted ?? 05/02/2017 ? 05/02/2017 ? + + ----+ + Model information Cellabus ? [employer] Ingevity ? ingevity mr ? MRI ? + + ----+ + Serial number ? [id number] ? [id number] ? + + ----+ + Location ? [...] results, any complications, and treatment plan to [facility] members and patient support persons who were present at the conclusi on of the procedure. POST PROCEDURAL DISPOSITION: Patient was admitted as an inpatient mello or to this procedure. Electronically signed by Tony Rosenberg MD 05/02/2017 11:23 Procedure Note Tony Rosenberg MD - 05/02/2017 *Cardiology* [address] [place] [address] Device Implantation Patient: David Mera Study Date: 04/2017 : 1950 Referring: Attending: [...] atrioventricular blo ck. HISTORY AND INDICATIONS: Mr. Mera pres ents with complete heart block. PROCEDURE: [...] skin adhesive. IMPLANTED HARDWARE: Implanted device: Clifford Tiwari DR - Serial number: [id number]. LEAD PARAMETERS + + ----+ + Lead # 1 2 + + ----+ + Chamber RA RV + + ----+ + Date implanted 05/02/2017 05/02/2017 + + ----+ + Model information Cellabus Isaac hood mr MRI + + ----+ + Serial number [id number] + + ----+ + Location RA appendage [...] results, any complications, and treatment plan to [facility] members and patient support persons who were present at the conclusi on of the procedure. POST PROCEDURAL DISPOSITION: Patient was admitted as an inpatient mello or to this procedure. Electronically signed by Tony Rosenberg MD 05/02/2017 11:23 Performing Organization Address [facility]/ZIP [facility] Phon e Number [facility] CARDIOLOGY MAIN CAMPUS CREATININE (05/02/2017 6:11 EST) Creatinine 0.68 0.66 - 1.25 [facility] mg/dl LABORATORY SERVICES GFR, Calculated 100 >60 [facility] Comment: ml/min/1.73m2 LABORATORY eGFR calculated using CKD-EPI equation for SERVICES non Americans. Multiply eGFR by 1.16 for Americans. Specimen Blood specimen (specimen) - Blood Performing Organization Address [facility]/ZIP [facility] Phon e Number [facility] LABORATORY [address] [place] [address] SERVICES BUN (05/02/2017 6:11 EST) Pathologist Sig nature BUN 10 10 - 26 mg/dl [facility] LABORATO RY SERVICES Specimen Blood specimen (specimen) - Blood Performing Organization Address [facility] Phon e Number [facility] LABORATORY [address] [place] [address] SERVICES (ABNORMAL) ELECTROLYTES (05/02/2017 6:11 EST) Pathologist Sig nature Sodium 135 (L) 136 - 145 mEq/L [facility] LABORA TORY SERVICES Potassium 4.4 3.5 - 5.0 mEq/L [facility] LABORA TORY SERVICES Chloride 102 96 - 110 mEq/L [facility] LABORAT ORY SERVICES CO2 23 22 - 32 mEq/L [facility] LABORATO RY SERVICES Specimen Blood specimen (specimen) - Blood Performing Organization Address [facility] Phon e Number [facility] LABORATORY [address] [place] [address] SERVICES (ABNORMAL) HEMAGRAM (05/02/2017 6:11 EST) Pathologist Sig nature WBC 6.92 4.0 - 10.4 K/cmm [facility] LABORATORY SERVICES RBC 3.67 (L) 4.36 - 5.78 M/cmm [facility] LABORATORY SERVICES Hemoglobin 12.3 (L) 13.8 - 17.3 gm/dl [facility] LABORATORY SERVICES HCT 35.2 (L) 39.5 - 50.2 % [facility] LABORATORY SERVICES MCV 96 (H) 81 - 95 fl [facility] LABORATORY SERVICES MCH 33.5 (H) 27.6 - 33.0 pg [facility] LABORATORY SERVICES MCHC 34.9 32.8 - 36.4 gm/dl [facility] LABORATORY SERVICES RDW-CV 11.9 <14.2 % [facility] LABORATORY SERVICES RDW-SD 41.1 <46.0 fl [facility] LABORATORY SERVICES PLT 185 141 - 377 K/cmm [facility] LABORATORY SERVICES MPV 12.9 (H) 9.5 - 12.7 fl [facility] LABORATORY SERVICES Specimen Blood specimen (specimen) - Blood Performing Organization Address [facility]/ZIP Code Phon e Number [facility] LABORATORY [address] [place] [address] SERVICES (ABNORMAL) TROPONIN I (05/01/2017 7:52 EST) Pathologist Sig nature Troponin I (ng/mL) 0.035 (H) <0.034 ng/ml [facility] LABORATORY SERVICES Specimen Blood specimen (specimen) - Blood Performing Organization Address [facility]/ZIP [facility] Phon e Number [facility] LABORATORY [address] [place] [phone] SERVICES MAGNESIUM (05/01/2017 6:01 EST) Pathologist Sig nature Magnesium 2.1 1.7 - 2.8 mg/dl [facility] LABORA TORY SERVICES Specimen Blood specimen (specimen) - Blood Performing Organization Address City/State/ZIP Code Phon e Number [facility] LABORATORY [address] [place] [address] SERVICES CREATININE (05/01/2017 6:01 EST) Creatinine 0.67 0.66 - 1.25 [facility] mg/dl LABORATORY SERVICES GFR, Calculated 100 >60 [facility] Comment: ml/min/1.73m2 LABORATORY eGFR calculated using CKD-EPI equation for SERVICES non Americans. Multiply eGFR by 1.16 for Americans. Specimen Blood specimen (specimen) - Blood Performing Organization Address City/State/ZIP Code Phon e Number [facility] LABORATORY [address] [place] [address] SERVICES (ABNORMAL) BUN (05/01/2017 6:01 EST) Pathologist Sig nature BUN 6 (L) 10 - 26 mg/dl [facility] LABORATO RY SERVICES Specimen Blood specimen (specimen) - Blood Performing Organization Address [facility]/ZIP Code Phon e Number [facility] LABORATORY [address] [place] [address] SERVICES (ABNORMAL) ELECTROLYTES (05/01/2017 6:01 EST) Pathologist Sig nature Sodium 134 (L) 136 - 145 mEq/L [facility] LABORA TORY SERVICES Potassium 4.5 3.5 - 5.0 mEq/L [facility] LABORA TORY SERVICES Chloride 101 96 - 110 mEq/L [facility] LABORAT ORY SERVICES CO2 23 22 - 32 mEq/L [facility] LABORATO RY SERVICES Specimen Blood specimen (specimen) - Blood Performing Organization Address [facility]/ZIP Code Phon e Number [facility] LABORATORY [address] [place] [address] SERVICES (ABNORMAL) HEMAGRAM (05/01/2017 6:01 EST) Pathologist Sig nature WBC 7.09 4.0 - 10.4 K/cmm [facility] LABORATORY SERVICES RBC 3.76 (L) 4.36 - 5.78 M/cmm [facility] LABORATORY SERVICES Hemoglobin 12.7 (L) 13.8 - 17.3 gm/dl [facility] LABORATORY SERVICES HCT 36.4 (L) 39.5 - 50.2 % [facility] LABORATORY SERVICES MCV 97 (H) 81 - 95 fl [facility] LABORATORY SERVICES MCH 33.8 (H) 27.6 - 33.0 pg [facility] LABORATORY SERVICES MCHC 34.9 32.8 - 36.4 gm/dl [facility] LABORATORY SERVICES RDW-CV 11.9 <14.2 % [facility] LABORATORY SERVICES RDW-SD 42.1 <46.0 fl [facility] LABORATORY SERVICES PLT 205 141 - 377 K/cmm [facility] LABORATORY SERVICES MPV 12.8 (H) 9.5 - 12.7 fl [facility] LABORATORY SERVICES Specimen Blood specimen (specimen) - Blood Performing Organization Address [facility] Phon e Number [facility] LABORATORY [address] [place] [address] SERVICES LIPID PROFILE (INCLUDES CHOLESTEROL, TRIGLYCERIDES, HDL, LDL) (05/01/2017 6:01 EST) Cholesterol 148 mg/dl [facility] Comment: LABORATORY Desirable:<200 SERVICES Borderline High:200-239 High:>wj=450 Triglycerides 65 mg/dl [facility] Comment: LABORATORY Normal:<150 SERVICES Borderline High:150-199 High:200-499 Very High:>fl=169 HDL 39 mg/dl [facility] Comment: LABORATORY Low:<40 SERVICES Normal:40-60 Desirable: >60 LDL, Calculated 96 mg/dl [facility] Comment: LABORATORY Optimal:<100 SERVICES Near Optimal:100-129 Borderline High:130-159 High:160-189 Very High:>sr=518 Chol/HDL Ratio 3.8 [facility] LABORATORY SERVICES Fasting? Unknown [facility] LABORATORY SERVICES Non HDL Cholesterol 109 mg/dl [facility] Comment: LABORATORY Desirable:<130 SERVICES Borderline:130-159 High: 160-189 Very High: >yh=139 Specimen Blood specimen (specimen) - Blood Performing Organization Address [facility] Phon e Number [facility] LABORATORY [address] [place] [address] SERVICES (ABNORMAL) TROPONIN I (05/01/2017 0:20 EST) Pathologist Sig nature Troponin I (ng/mL) 0.055 (H) <0.034 ng/ml [facility] LABORATORY SERVICES Specimen Blood specimen (specimen) - Blood Performing Organization Address City[facility] Phon e Number [facility] LABORATORY [address] [place] [address] SERVICES HEMOGLOBIN A1C (05/01/2017 0:20 EST) Hemoglobin A1C 5.7 % [facility] Comment: LABORATORY SERVICES Reference Range: <5.7% Normal 5.7-6.4% Prediabetes =>6.5% Diagnostic for diabetes (if confirmed) Goals for glycemic control in diabetes ADA 2017 For non adults with diabetes: ?? Target <7.5% For children and adolescents with type 1 diabetes: ?? Target <7.0% More or less stringent targets may be appropriate for individual patients. Est Avg Glucose 117 mg/dl [facility] Comment: LABORATORY SERVICES eAG represents the A1c result expressed as average glucose in mg/dl. Specimen Blood specimen (specimen) - Blood Performing Organization Address [facility] Code Phon e Number [facility] LABORATORY [address] [place] [address] SERVICES (ABNORMAL) PROTIME (04/30/2017 19:33 EST) Pro Time 15.1 (H)Comment: NOTE 10.3 - 13.4 [facility] NEW REFERENCE RANGE secs LABORATORY SERVICE S OF APR 03 2017 I.N.R. 1.3 (H) 0.9 - 1.1 [facility] Comment: Ratio LABORATORY SERVICES Moderate Intensity Coumadin INR = 2.0-3.0 Adjustments in anticoagulant therapy dose should be based upon the INR and NOT the Pro Time. Specimen Blood specimen (specimen) - Blood Performing Organization Address [facility]/ZIP Code Phon e Number [facility] LABORATORY [address] [place] [address] SERVICES ED/URGENT CARE ADD-ON (04/30/2017 18:20 EST) Pathologist Sig nature Tests to be added LYME [facility] AB,Comment: TSH LABORATORY SERVICES Number for problems [id number] (ED) [facility] LABORATORY SERVICES Specimen Other Performing Organization Address [facility]/ZIP [facility] Phon e Number [facility] LABORATORY [address] [place] [address] SERVICES OUTSIDE IMAGES ??? ECHO IMAGES (04/30/2017 17:24 EST) Anatomical Region Laterality Modality Other Specimen Narrative OP CARDIOLOGY - 04/30/2017 17:24 EST This is an outside study - there is no r eport. Procedure Note CARRIER DRIVER, IMAGING - 04/30/2017 This is an outside study - there is no r eport. Performing Organization Address City/State/ZIP Code Phon e Number OP CARDIOLOGY EKG 12-LEAD (04/30/2017 16:43 EST) Specimen Narrative [facility] EKG - 05/02/2017 11:1 2 EST ?[facility] Emergency ? Test Date: ?2017-04-30 Pat Name: ? DAVID MERA ?Department: ?? ED ? Room: ? AC12 Gender: ? M ?Canary Breeder: ?? [id number] : ?1950 ? Requested By: DONNA Cabral Order Number: [id number] ? Martah OAKES: ?? ANA OCONNELL MD ? Measurements Intervals ?[place] ? Rate: ? 33 ? P: ? MD: ? 0 ?QRS: ?15 QRSD: ? 110 [...] Electronically Signed On 11:12:25 EST by ANA OCONNELL MD. Procedure Note Ana Oconnell MD - 05/02/2017 [facility] Emergency Test Date: 2017-04-30 Pat Name: DAVID MERA Department: ED Room: [facility] Gender: M Canary Breeder: [id number] : 1950 Requested By: DONNA Cabral Order Number: [id number] Martha MD: Vern OCONNELL MD Measurements Intervals [place] Rate: 33 P: MD: 0 QRS: 15 QRSD: 110 T: 42 [...] Signed On 8 11:12:25 EST by ANA OCONNELL MD. Performing Organization Address City/State/ZIP Code Phon e Number [facility] EKG TSH (04/30/2017 16:40 EST) Pathologist Sig nature TSH 1.34 0.47 - 4.68 uIU/ml [facility] LABORATORY SERVICES Specimen Blood Performing Organization Address City[facility]/ZIP Code Phon e Number [facility] LABORATORY [address] [place] [address] SERVICES LYME AB (04/30/2017 16:40 EST) Pathologist Sig nature [place] NegativeComment: [facility] Reference Range: LABORATORY SERVICES Negative Specimen Blood Performing Organization Address City[facility]/ZIP Code Phon e Number [facility] LABORATORY [address] [place] [address] SERVICES (ABNORMAL) PROFILE ED CARDIAC PACK (04/30/2017 16:40 EST) Sodium 134 (L) 136 - 145 [facility] mEq/L [place] LABORATORY SERVICES Potassium 4.2 3.5 - 5.0 [facility] mEq/L [facility] Chloride 105 96 - 110 [facility] mEq/L [place] [facility] SERVICES CO2 20 (L) 22 - [...] for Americans. Magnesium 1.7 1.7 - 2.8 [facility] mg/dl [facility] SERVICES WBC 7.78 4.0 - 10.4 [facility] K/cmm [facility] SERVICES RBC 3.72 (L) 4.36 - 5.78 [facility] M/cmm [facility] SERVICES Hemoglobin 12.6 (L) 13.8 - 17.3 [facility] gm/dl [facility] SERVICES HCT 35.7 (L) 39.5 - 50.2 [facility] % [facility] LABORATORY SERVICES MCV 96 (H) 81 - 95 fl [facility] LABORATORY SERVICES MCH 33.9 (H) 27.6 - 33.0 [facility] pg [place] LABORATORY SERVICES MCHC 35.3 32.8 - 36.4 [facility] gm/dl [facility] LAB[facility]ATORY SERVICES RDW-CV 11.9 <14.2 % [facility] LABORATORY SERVICES RDW-SD 41.5 <46.0 fl [facility] LABORATORY SERVICES PLT 197 141 - 377 [facility] K/[facility] LABORATORY SERVICES MPV 12.5 9.5 - 12.7 [facility] LABORATORY SERVICES Neutrophils 62.1 % [facility] LABORATORY SERVICES Lymphocytes 23.9 % [facility] LABORATORY SERVICES Monocytes 11.6 % [facility] LABORATORY SERVICES Eosinophils 1.2 % [facility] LABORATORY SERVICES Basophils 0.9 % [facility] LABORATORY SERVICES Immature Grans 0.3 % [facility] LABORATORY SERVICES ABS Neutrophils 4.84 2.20 - 8.85 [facility] K/[facility] LABORATORY SERVICES ABS Lymphs 1.86 1.09 - 3.30 [facility] LABORATORY SERVICES ABS Monocytes 0.90 (H) 0.1 - 0.8 [facility] LABORATORY SERVICES ABS Eosinophils 0.09 0.03 - 0.61 [facility] LABORATORY SERVICES ABS Basophils 0.07 0.01 - 0.11 [facility] LABORATORY SERVICES ABS Immature Grans 0.02 0 - 0.06 [facility] LABORATORY SERVICES Type of Diff: Automated [facility] LABORATORY SERVICES Troponin I (ng/mL) 0.040 (H) <0.034 ng/ml [facility] LABORATORY SERVICES Glucose, Screening 100 70 - 100 [facility] mg/dl [facility] LAB[facility] SERVICES Hold Blue Top Sample for [facility] coagulation will be [facility] discarded after 4 SERVICES hours Specimen Blood specimen (specimen) - Blood Performing Organization Address City/State/ZIP Code Phon e Number [facility] LABORATORY [address] [place] [address] SERVICES documented in this encounter Visit Diagnoses Diagnosis Heart block AV third degree (HCC-CMS) (H CC) - Primary Atrioventricular block, complete Acute on chronic diastolic congestive he art failure ([facility]) (HCC) Acute on chronic diastolic heart failure Hypertensive urgency Unspecified essential hypertension documented in this encounter Administered Medications Inactive Administered Medications - up to 3 most recent administrations Medication Order MAR Action Action Date Dose Rate Site acetaminophen (TYLENOL) tablet 650 mg Given 05/03/2017 8:29 EST 650 mg 650 mg, oral, EVERY 4 HOURS PRN, Starting on Fri04/30/17 at 1904, Until Fri05/04/17 at 2019, Pain, Routine Given 05/02/2017 12:01 [...] RN) 0848 (Giv en - Provider: Katie Smith RN) 25 mg, oral, DAILY, First dose on 04/20 at 1645, Until Discontinued, Routine fluticasone (FLONASE) nasal spray 100 mcg 1329 (Given - Provider: Katie Smith RN) 100 mcg, nasal - both, DAILY, First dose on Fri05/04/17 at 1200, Until Discontinued, Routine sodium chloride 0.9 % flush 3 mL 1014 (Given - Provide r: Aury Matias RN)1533 (Given - Provider: Aury Matias RN) 0023 (Given - Provider: Don Alvarado RN)0929 (Given - Provider: Aury Matias, TISH)1548 (Given - Provider: Charisse Corea, TISH)2310 (Given - Provider: Doris Alex, RN) 0900 (Canceled Entry - Provider: Katie Smith, TISH)1504 (Canceled Entry - Provider: Katie Smith, RN) 3 mL, intravenous, EVERY 8 HOURS, First dose on [place] 05/01/17 at 0000, Until Discontinued, Routine PRN Medication Order 05/02/2017 05/03/2017 05/04/2017 acetaminophen (TYLENOL) tablet 650 mg 1201 (Given - Pr ovider: Aury Matias RN) 08 (Given - Provider: Aury Matias RN) 650 mg, oral, EVERY 4 HOURS PRN, Startin g Fri04/30/17 at 1904, Until 05/04/17 at 2019, Pain, Routine bisacodyl (DULCOLAX) suppository 10 mg 10 mg, rectal, DAILY PRN, Starting Fri at 1904, Until 05/04/17 at 2019, Constipation, Routine fentaNYL citrate (PF) 50 mcg/mL injection (COMPLETED) 804 (Given - Provider: Sigrid Schwartz RN)819 (Given - Provider: Sigrid Schwartz, TISH) intravenous, PRN, Starting on Fri05/02/17 at 0805, Until Fri05/02/17 at 0820, Routine midazolam (PF) (VERSED) 1 mg/mL injection (COMPLETED) 804 (Given - Provider: Sigrid Schwartz RN)08 (Given - Provider: Sigrid Schwartz, RN) intravenous, PRN, Starting on Fri05/02/17 at 0805, Until Fri05/02/17 at 0820, Routine sodium chloride 0.9 % (NS) infusion (COMPLETED) 0800 ( New Bag - Provider: Sigrid Schwartz RN) intravenous, FA IP EQF CONTINUOUS PRN [...] 05/01/2017 documented in this encounter Care Teams Pizzamaker Relationship Specialty Start Date End Date None, Provider PCP - General 04/30/17 05/01/17 Katia Stone, MINGO PCP - General 05/02/17 [address] [place] [phone] documented as of this encounter
--- OUTSIDE RECORDS SUMMARY | 2021-12-14 00:29 | XMS_ITS | Encounter Summary ---
:1950 [place] [address] Care Team Providers Name Role Phone Katia Mccallum Primary Care Provider Encounter Details Date Type Department Care Team Description 06/26/2021 Ancillary Procedure Radiology Library Mykel Stern, Gallbladder abscess at [facility] [address] [place]OLOGY [phone] [place], [place] [phone] [address] Social History Tobacco Use Types Packs/Day Years Used Date Never Assessed Sex Assigned at Date Recorded Not on file documented as of this encounter H&P Notes Vini Garner MD - 06/26/2021 3:30 PM EDT Images from the original note were not included. INTERVENTIONAL RADIOLOGY FOCUSED H&P and PRE-PROCEDURE NOTE: PCP: GIRISH Johnson Referring Provider: [facility] General Surgery: Virginia Price DO Planned Procedure: [...] communicated by Dr. Price from [facility]. They are requesting a gallbladder fossa and [...] and left basilar pleural collection presenting to [facility] for ct guided abdominal and left pleural drian placement. Plan: Planned procedure: CT guided RUQ abdominal drain and left chest tube placement Labs to be performed day of procedure: Hemogram; INR; Coags (need to be faxed from [facility]) Sedation: Moderate (Conscious sedation) Prophylactic antibiotic : [...] Organization Address City/State/ZIP Code Phon e Number [place], [place] documented in this encounter Visit Diagnoses Diagnosis Gallbladder abscess Acute cholecystitis documented in this encounter Care Teams Blasting Miner Relationship Specialty Start Date End Date Katia Mccallum PA PCP - General General Internal Medicine 11/10/[address] [place] [phone] documented as of this encounter
--- OUTSIDE RECORDS SUMMARY | 2021-12-14 00:29 | XMS_ITS | Clinical Summary ---
:1950 Author Organization [facility] [place] [address] Care Team Providers Name Role Phone Katia Mccallum Primary Care Provider Allergies No known active allergies Encounters Date Type Specialty Care Team Description 11/14/2021 Hospital Encounter Cardiology Radha Hammond, CHB (complete heart MD block) from Last 3 Months Social History [...] Date Last Done Comments Covid-19 Vaccine (#1) 04/07/1951 Hepatitis C Screening 1968 Lipid Screening 1968 [...] 3 Months Results PCM INTERROGATION 3 MONTH (11/19/2021 2:52 PM EDT) Anatomical Region Laterality Modality Other Specimen (Source) Anatomical Location Collection Method / Collectio n Time Received Time / Laterality Volume Narrative 11/22/2021 10:04 AM EDT Outpatient remote interrogation report: See full report as a linked pdf document Date of transmission: 11/14/21 Device golf ball molder: BSC Device type: DC PM Presenting rhythm: apvp AP 56% BUS INFO CONSULTANT 100% - no LV functional assessment in our system. ??Recommend echo at time of DIONICIO work up (1 year to DIONICIO) Battery: 1 years Episodes: Episode of CARLOS (likely) on 10/22/21 Stable lead trends. Activity OK Radha Hammond MD 11/22/2021 10:01 AM Radha Hammond MD IMPLANTABLE CARDIAC DEVICE from Last 3 Months Insurance Payer Benefit Plan / Subscriber ID Effective Dates Phone Addre ss Type Group MEDICARE MEDICARE PART [id number] 2018-Prese [id number] [place] [address] [place] [id number] 2019-Prese [phone] [address] [place] [address] Advance Directives Latest Code Status on File Code Status Date Activated Date Inactivated Comments Suspended DNR 07/10/2021 10:02 AM 07/11/2021 4:39 AM Code Status decision made by: Patient Content of discussion: full resusitation during periprocedur eal period Care Teams Rn Telephone Triage Relationship Specialty Start Date End Date Katia Mccallum PA PCP - General General Internal Medicine 11/10/[address] [place] [phone]
--- OUTSIDE RECORDS SUMMARY | 2021-12-14 00:29 | XMS_ITS | Encounter Summary ---
:1950 Author Organization [facility] [place] [address] Care Team Providers Name Role Phone Katia Mccallum Primary Care Provider Encounter Details Date Type Department Care Team Description 11/25/2019 Telephone Cardiology at [facility] Gayla Ochoa RN [facility] [place] [phone] Social History Tobacco Use Types Packs/Day Years Used Date Never Assessed Sex Assigned at Date Recorded Not on file documented as of this encounter Miscellaneous Notes Telephone Encounter - Gayla Ochoa RN - 11/25/2019 11:44 AM EDT Maru called and is requesting acceptance of a referral to [facility] Cardiology for Tim. States that Timnormally sees [...] filedocumented in this encounter Care Teams Senior Marketing Associate Relationship Specialty Start Date End Date Katia Mccallum PA PCP - General General Internal Medicine 11/10/[address] [place] [phone] documented as of this encounter
--- NOTE | 2021-12-14 07:15 | DI.US_ITS ---
Exam(s) US ABDOMEN EXAM: US ABDOMEN CLINICAL HISTORY: severe bloating, heme posivive, s/p GB surgery R14.0 ABDOMINAL DISTENSION TECHNIQUE: Ultrasound abdomen performed using standard protocol. COMPARISON: US US ABDOMEN LIMITED from 06/21/[address] ABDOMEN PELVIS WO from 07/19/2021 FINDINGS: Examination limited by patient body habitus. ABDOMINAL AORTA AND IVC: Could not be visualized due to patient body habitus. PANCREAS: Normal where visualized. LIVER: Normal. Hepatopedal flow in the Portal Vein. The liver measures 14 cm long. GALLBLADDER:Status post cholecystectomy. BILIARY SYSTEM: Common bile duct could not be visualized due to patient body habitus. RODGERS'S SIGN: Negative. KIDNEYS: There is limited visualization of the kidneys due to patient body habitus. Kidneys are symm etric in size. No evidence of renal calculi. No evidence of hydronephrosis. No renal mass or cyst linda ntified. SPLEEN: Upper limits of normal at 12.7 cm. ASCITES: None seen. IMPRESSION: 1. Overall examination was limited due to patient body habitus. 2. Status post cholecystectomy. DATA REPOSITORY:
== END ==
PROVIDERS: Visit Provider Family Medicine
DX: R14.0 Abdominal distension (gaseous) (principal)
CPT/HCPCS: 76700

== ENCOUNTER → 2021-12-14 01:03 | Outpatient (CLI) | payer MEDICARE, MEDICAID, SELFPAY ==
--- NOTE | 2021-12-14 | DI.RAD_ITS ---
Exam(s) XR CHEST 2V PA LATERAL EXAM: XR CHEST 2V PA LATERAL CLINICAL HISTORY: CHF, PULMONARY CONGESTION TECHNIQUE: 2D digital imaging was performed of the chest. Images were obtained. PA and lateral v iews were obtained. COMPARISON: CR XR CHEST 2V PA LATERAL from 06/21/2021 CR XR PORTABLE CHEST AP from 07/12/2021 FINDINGS: MEDIASTINUM: Normal. HEART: Mild cardiomegaly. Cardiac leads are stable. PULMONARY VASCULATURE: Normal. LUNGS: No focal consolidating infiltrates. PLEURAL SPACE: There is again seen a heavily calcified right pleural disease. There is also a persis tent loculated left pleural effusion. BONE:Within normal limits for the patient's age. OTHER FINDINGS:Normal. IMPRESSION: No acute pulmonary findings. DATA REPOSITORY: RADIATION DOSE DELIVERED:
--- OUTSIDE RECORDS SUMMARY | 2021-12-14 01:05 | XMS_ITS | Encounter Summary ---
:[address] [facility] Address [address] [place] [address] Care Team Providers Name Role Phone Katia Stone PA-C Primary Care Provider Encounter Details Date Type Department Care Team Description 09/02/2020 Results Only [facility] Rowan Abad NP [phone] [place] [phone] (Wo rk) Social History Tobacco Use [...] used to calculate. Specimen Performing Organization Address City/[facility] Phon e Number [facility] [address] [place] [address] PLATELET COUNT (09/02/2020 6:18 EDT) Pathologist Sig nature PLATELET COUNT - [facility] 247 150 - 450 10 [facility] 3/uL [facility]ENTER LAB Specimen Narrative [facility] - 09/02/2020 7 :06 EDT Comment ENOXAPARIN MONITORING Performing Organization Address City/[facility] Phon e Number [facility] [address] [place] [address] documented in this encounter Visit Diagnoses Not on filedocumented in this encounter Care Teams Acoustical Logging Engineer Relationship Specialty Start Date End Date Katia Stone PA-C PCP - General 05/02/17 [address] [place] [phone] documented as of this encounter
--- OUTSIDE RECORDS SUMMARY | 2021-12-14 01:05 | XMS_ITS | Encounter Summary ---
:1950 Author Organization [facility] Address [address] [place] [address] Care Team Providers Name Role Phone Katia Stone PA-C Primary Care Provider Encounter Details Date Type Department Care Team Description 08/13/2020 Lab Requisition [facility] Outr Resulting Lab, Pathology & Laboratory Provider [facility] [address] [place] [address] Social History Tobacco Use Types [...] nature Salmonella PCR Negative Negative [facility] Shigella/Enteroinvasive Negative Negative [facility] HN LAB CAMPYLOBACTER PCR Negative Negative [facility] Shiga Toxin PCR Negative Negative [facility] Specimen Feces - Specimen from rectum (specimen) Performing Organization Address City/State/ZIP Code Phon e Number [facility] [address] [place] [address] SERVICES documented in this encounter Visit Diagnoses Not on filedocumented in this encounter Care Teams Curb Setter Helper Relationship Specialty Start Date End Date Katia Stone PA-C PCP - General 05/02/[address] [place] [phone] documented as of this encounter
--- OUTSIDE RECORDS SUMMARY | 2021-12-14 01:05 | XMS_ITS | Encounter Summary ---
:1950 Author Organization [facility] Address [address] [place] [address] Care Team Providers Name Role Phone Katia Stone PA-C Primary Care Provider Encounter Details Date Type Department Care Team Description 08/12/2020 Results Only [facility] - [facility] Geetha Valerio, Rheumatology [address] [facility] [address] [place] [address] [address] [place] [address] (Wo rk) Social History Tobacco Use [...] Magnesium 1.4 (L) 1.8 - 2.4 mg/dl [facility] Specimen Performing Organization Address City/State/ZIP Code Phon e Number [facility] [address] [place] [address] (ABNORMAL) BASIC METABOLIC PANEL (BMP) (08/12/2020 6:48 EDT) Sodium 135 (L) 136 - 145 mEq/L [facility] Potassium 3.2 (L) 3.5 - 5.1 mEq/L [facility] Chloride 101 96 - 107 mEq/L [facility] CO2 Total 28.8 21 - 32 mEq/L [facility] Anion Gap 4.2 mEq/L [facility] BUN 5 (L) 7 - 25 mg/dl [facility] Creatinine 0.50 (L) 0.70 - 1.30 [facility] mg/dl [facility] Estimated GFR >60 >60 [facility] Comment: [facility]ENTER [facility] EGFR UNITS: mL/min/1.73 m 2 CKD-EPI Equation used to calculate. Glucose 102 74 - 106 mg/dl [facility] Calcium 7.9 (L) 8.5 - 10.1 [facility] mg/dl [facility] Specimen Performing Organization Address [facility]/ZIP Code Phon e Number [facility] [address] [place] [address] (ABNORMAL) HEPATIC FUNCTION PANEL (ALB,ALK PHOS,ALT,AST,DBIL,TOT BOSSMAN,TOT PROT) (08/12/2020 6:48 EDT) Pathologist Sig nature BILIRUBIN - PMC 0.50 0.00 - 1.00 [facility] mg/dl [facility] DIRECT BILIRUBIN - PMC 0.20 0.00 - 0.30 [facility] mg/dl [facility] INDIRECT BILIRUBIN - 0.30 0.00 - 0.80 [facility] PMC mg/dl [facility] AST 31 15 - 37 U/L [facility] ALT 25 16 - 63 U/L [facility] Alkaline Phosphatase 99 46 - 116 U/L [facility] Total Protein 5.9 (L) 6.4 - 8.2 g/dl [facility] Albumin 2.2 (L) 3.4 - 5.0 g/dl [facility] GLOBULIN - [facility] 3.7 g/dl [facility] ALBUMIN/GLOBULIN RATIO 0.5 [facility] LAB Specimen Performing Organization Address City/[facility]/ZIP Code Phon e Number [facility] [address] [place] [address] documented in this encounter Visit Diagnoses Not on filedocumented in this encounter Care Teams Parts Sales Counterperson Relationship Specialty Start Date End Date Katia Stone PA-C PCP - General 05/02/17 [address] [place] [phone] documented as of this encounter
--- OUTSIDE RECORDS SUMMARY | 2021-12-14 01:05 | XMS_ITS | Encounter Summary ---
:[address] [facility] Address [address] [place] [address] Care Team Providers Name Role Phone Katia Stone PA-C Primary Care Provider Encounter Details Date Type Department Care Team Description 08/08/2020 Results Only [facility] - Renetta Isaac, [facility] Center Lab MD [address] [place] [address] [place], [place] [phone] (Wo rk) Social History Tobacco Use [...] EDT) WBC 7.6 4.0 - 10.5 10 [facility] 3/[facility] RBC 3.15 (L) 4.70 - 6.00 [place] [address] 6/uL [facility] Hemoglobin 11.3 (L) 13.5 - 18.0 [facility] g/dL [facility] HCT 31.4 (L) 42.0 - 52.0 % [facility] MCV 99.7 78 - 100 fL [facility] MCH 35.9 (H) 27 - 31 pg [facility] MCHC 36.0 32 - 37 g/dL [facility] RDW-CV - PMC 13.8 <14.7 % [facility] PLATELET COUNT - PMC 199 150 - 450 10 [facility] 3/uL [facility] MPV 11.2 9.2 - 12.0 fL [facility] NEUTROPHILS % (AUTO) 81.3 % [facility] LYMPHOCYTES % (AUTO) 8.6 % [facility] MONOCYTES % (AUTO) - 9.5 % [facility] EOSINOPHILS % (AUTO) 0.0 % [facility] BASOPHILS % (AUTO) - 0.1 % [facility] Immature Granulocyte 0.5 % [facility] % (Auto) [facility] NUCLEATED RBC % 0.0 % [facility] (AUTO) [facility] NEUTROPHILS # (AUTO) 6.1 1.5 - 6.6 10 [facility] 3/uL [facility] LYMPHOCYTES # (AUTO) 0.7 (L) 1.0 - 3.5 10 [facility] 3/uL [facility] MONOCYTES # (AUTO) - 0.7 <1.0 10 3/uL [facility] EOSINOPHILS # (AUTO) 0.0 <0.7 10 3/uL [facility] Absolute Immature 0.04 <0.06 10 3/uL [facility] Granulocyte [facility] DIFFERENTIAL METHOD Auto Differential [facility] Specimen Performing Organization Address [facility]/State/ZIP Code Phon e Number [facility] [address] [place] [address] CORONAVIRUS COVID-19 PCR ([facility]) (08/08/2020 17:07 EDT) Specimen Narrative [facility] - 08/08/2020 1 8:36 EDT ?? RUN DATE: 08/08/20 ? [facility] HN: [facility] *LIVE* ? PAGE 1 ? RUN TIME: 1837 ?Specimen Inquiry ? PATIENT: ADOLPHDAVID ? ACCT: [id number] LOC: ??ED ? U: [id number] ? AGE/SX: 69/M ? ROOM: ?RE08/08/20 ?? REG DR: ??Tony Christy MD ?: ?1950 ?? BED: ? DIS: ? STATUS: REG ER ? TLOC: ? SPEC #: [id number] ?ALEX: -1706 ? STATUS: ??COMP ? REQ #: [id number] ?RECD: 08/08/20 ? SUBM DR: Tony Christy [...] This test ?has been authorized by the [facility] under a EUA for use [...] terminated or revoked sooner. ?Testing performed on Electro-LuminX instrument ? END OF REPORT ? Performing Organization Address [facility] [address] [place] [address] (ABNORMAL) BNP - PMC (08/08/2020 16:47 EDT) [facility] B-TYPE NATRIURETIC 398 (H) <100 pg/mL [facility] PEPTIDE - [facility] LAB Specimen Performing Organization Address [facility] Phon [facility] [address] [place] [address] TROPONIN I (08/08/2020 16:47 EDT) [facility] Troponin I <0.050 0 - 0.056 [facility] (ng/mL) Comment: ng/ml [facility]ENTER [facility] [...] Specimen Performing Organization Address [facility] Phon [facility] [address] [place] [address] (ABNORMAL) COMPREHENSIVE METABOLIC PANEL (CMP) (08/08/2020 16:47 EDT) [facility] Sodium 125 (L) 136 - 145 [facility] mEq/L [facility] Potassium 2.9 (L) 3.5 - 5.1 [facility] mEq/L [facility] Chloride 85 (L) 96 - 107 [facility] mEq/L [facility] CO2 Total 26.2 21 - 32 mEq/L [facility] Anion Gap 13.8 mEq/L [facility] BUN 8 7 - 25 mg/dl [facility] Creatinine 0.67 (L) 0.70 - 1.30 [facility] mg/dl [facility] Estimated GFR >60 >60 [facility] Comment: [facility] EGFR UNITS: mL/min/1.73 m 2 CKD-EPI Equation used to calculate. Glucose 101 74 - 106 [facility] mg/dl [facility] Calcium 8.5 8.5 - 10.1 [facility] mg/dl [facility] CALCIUM,CORRECTED - 9.3 8.5 - 10.5 [facility] mg/dl [facility] BILIRUBIN - PMC 1.60 (H) 0.00 - 1.00 [facility] mg/dl [facility] AST 90 (H) 15 - 37 U/L [facility] ALT 62 16 - 63 U/L [facility] Alkaline Phosphatase 133 (H) 46 - 116 U/L [facility] Total Protein 7.6 6.4 - 8.2 [facility] g/dl [facility] Albumin 3.0 (L) 3.4 - 5.0 [facility] g/dl [facility] GLOBULIN - PMC 4.6 g/dl [facility] ALBUMIN/GLOBULIN 0.6 [facility] RATIO - PMC [facility] Specimen Performing Organization Address City/State/ZIP Code Phon e Number [facility] [address] [place] [address] (ABNORMAL) COMPLETE BLOOD COUNT AND DIFFERENTIAL (08/08/2020 16:47 EDT) WBC 7.3 4.0 - 10.5 10 [facility] 3/uL [facility] RBC 3.32 (L) 4.70 - 6.00 [facility] 10 6/uL [facility] Hemoglobin 11.8 (L) 13.5 - 18.0 [facility] g/dL [facility] HCT 32.9 (L) 42.0 - 52.0 % [facility] MCV 99.1 78 - 100 fL [facility] MCH 35.5 (H) 27 - 31 pg [facility] MCHC 35.9 32 - 37 g/dL [facility] RDW-CV - [facility] 13.7 <14.7 % [facility] PLATELET COUNT - [facility] 209 150 - 450 10 [facility] 3/[facility] MPV 11.4 9.2 - 12.0 fL [facility] NEUTROPHILS % (AUTO) 81.9 % [facility] LYMPHOCYTES % (AUTO) 9.1 % [facility] MONOCYTES % (AUTO) - 8.3 % [facility] EOSINOPHILS % (AUTO) 0.0 % [facility] BASOPHILS % (AUTO) - 0.1 % [facility] Immature Granulocyte 0.6 % [facility] % (Auto) [facility] NUCLEATED RBC % 0.0 % [facility] (AUTO) [facility] NEUTROPHILS # (AUTO) 5.9 1.5 - 6.6 10 [facility] 3/[facility] LYMPHOCYTES # (AUTO) 0.7 (L) 1.0 - 3.[address] LAB MONOCYTES # (AUTO) - 0.6 <1.0 10 3[facility] EOSINOPHILS # (AUTO) 0.0 <0.7 10 3/[facility] LAB Absolute Immature 0.04 <0.06 10 3/[facility] LAB DIFFERENTIAL METHOD Auto Differential [facility] Specimen Performing Organization Address City/State/ZIP Code Phon e Number [facility] [address] [place] [address] documented in this encounter Visit Diagnoses Not on filedocumented in this encounter Care Teams Electric Bath Attendant Relationship Specialty Start Date End Date Katia Stone, PABijalC PCP - General 05/02/17 [address] [place], [place] [phone] documented as of this encounter
--- OUTSIDE RECORDS SUMMARY | 2021-12-14 01:05 | XMS_ITS | Encounter Summary ---
:1950 Author Organization [facility] Address [address] [place] [address] Care Team Providers Name Role Phone Katia Stone PA-C Primary Care Provider Encounter Details Date Type Department Care Team Description 06/23/2021 Lab Requisition [facility] Outr Resulting Lab, Pathology & Laboratory Provider [facility] [address] [place] [address] Social History Tobacco Use Types [...] Sig nature Osmolality, Urine 509 150-1,150 mOsm/kg [facility] Specimen Urine - Urine specimen collection, clean catch (procedure) Performing Organization Address City/State/ZIP Code Phon e Number [facility] [address] [place] [address] SERVICES documented in this encounter Visit Diagnoses Not on filedocumented in this encounter Care Teams Heat Engineering Teacher Relationship Specialty Start Date End Date Katia Stone, PABijalC PCP - General 05/02/17 [address] [place] [phone] documented as of this encounter
--- OUTSIDE RECORDS SUMMARY | 2021-12-14 01:05 | XMS_ITS | Clinical Summary ---
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 Hypertensive urgency 05/01/2017 Heart block AV third degree ([facility]) 04/30/2017 Resolved Problems Problem Noted Date Resolved Date Acute on chronic diastolic congestive heart failure 05/02/19 18 05/27/2017 ([facility]) Surgical History Surgery Date Site/Laterality Comments PACEMAKER PLACEMENT 03/03/2017 - 03/02/2018 OTHER SURGICAL HISTORY 06/19/20 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 3830 Selectsecure Mri Surescan - [id number] Lead Medtro velasquez 3830 SelectSecure MRI SureScan / Implanted: 05/21/2017 (Quantity not on file) [id number] / Description: Implant record loaded by IM P Chronicles import. L111 Essentio Mri - [id number] Pacemaker [employer] L111 ESSENTIO MRI / Implanted: 05/02/2017 (Quantity not on file) [id number] / Description: Implant record loaded by IM P Chronicles import. Insurance Payer Benefit Plan Subscriber ID Effective Phone Address Typ e / Group Dates MEDICARE ACO MEDICARE ACO [id number] 2021-Prese [id number] [place] [address] MEDICARE MEDICARE A/B [id number] 2015-Prese [address] [place] [address] [place]ID [place] [id number] 2019-Prese [address] [place] [facility] [id number] Tim Mera Personal/Family Self 1950 [facility] [place] [address] Tim Mera Personal/Family Self 1950 [facility] [place] [address] Tim Mera Personal/Family Self 1950 [facility] [place] [address] Tim Mera Personal/Family Self 1950 [facility] [place] [address] Tim Mera Personal/Family Self 1950 [facility] [place] [address] Tim Mera Personal/Family Self 1950 [facility] [place] [address] Tim Mera Personal/Family Self 1950 [facility] [place] [address] Advance Directives For more information, please contact: [phone] Documents on File Type Date Recorded Patient Curb Supervisor Explanati on Advance Directive Latest Code Status [...] in the discussion? Not Discussed Care Teams Composition Tile Layer Relationship Specialty Start Date End Date Katia Stone, PABijalC PCP - General 05/02/[address] [place] [phone]
--- OUTSIDE RECORDS SUMMARY | 2021-12-14 01:05 | XMS_ITS | Encounter Summary ---
:1950 Author Organization [facility] Address [address] [place] [address] Care Team Providers Name Role Phone Katia Stone PA-C Primary Care Provider Encounter Details Date Type Department Care Team Description 08/20/[address] [facility] - Junior Ruiz [facility] [address] [place], [place] [phone] (Wo rk) Social History Tobacco Use [...] Magnesium 1.6 (L) 1.8 - 2.4 mg/dl [facility] Specimen Performing Organization Address [facility] Phon e Number [facility] [address] [place] [address] (ABNORMAL) BASIC METABOLIC PANEL (BMP) (08/20/2020 6:50 EDT) Sodium 134 (L) 136 - 145 mEq/L [facility] Potassium 3.6 3.5 - 5.1 mEq/L [facility] Chloride 100 96 - 107 mEq/L [facility] CO2 Total 28.7 21 - 32 mEq/L [facility] Anion Gap 5.3 mEq/L [facility] BUN 7 7 - 25 mg/dl [facility] Creatinine 0.48 (L) 0.70 - 1.30 [facility] mg/dl [facility] Estimated GFR >60 >60 [facility] Comment: [facility] EGFR UNITS: mL/min/1.73 m 2 CKD-EPI Equation used to calculate. Glucose 91 74 - 106 mg/dl [facility] Calcium 8.3 (L) 8.5 - 10.1 [facility] mg/dl [facility] Specimen Performing Organization Address [facility] Code Phon e Number [facility] [address] [place] [address] (ABNORMAL) COMPLETE BLOOD COUNT (08/20/2020 6:50 EDT) Pathologist Sig nature WBC 5.8 4.0 - 10.5 10 [facility] 3/[facility] RBC 2.96 (L) 4.70 - 6.00 10 [facility] 6/[facility] Hemoglobin 10.5 (L) 13.5 - 18.0 [facility] g/dL [facility] HCT 29.8 (L) 42.0 - 52.0 % [facility] MCV 100.7 (H) 78 - 100 fL [facility] MCH 35.5 (H) 27 - 31 pg [facility] MCHC 35.2 32 - 37 g/dL [facility] RDW-CV - PMC 14.7 <14.7 % [facility] PLATELET COUNT - PMC 253 150 - [address] LAB MPV 10.1 9.2 - 12.0 fL [facility] Specimen Performing Organization Address City/State/ZIP Code Phon e Number [facility] [address] [place] [address] documented in this encounter Visit Diagnoses Not on filedocumented in this encounter Care Teams Fitter Type Bar And Segment Relationship Specialty Start Date End Date Katia Stone PA-C PCP - General 05/02/[address] [facility] [place] [place] [phone] documented as of this encounter
--- OUTSIDE RECORDS SUMMARY | 2021-12-14 01:05 | XMS_ITS | Encounter Summary ---
:[address] [facility] Address [address] [place] [address] Care Team Providers Name Role Phone Katia Stone PA-C Primary Care Provider Encounter Details Date Type Department Care Team Description 09/15/2020 Results Only [facility] - Junior Ruiz [facility] Lab [address] [place], [place] [phone] (Wo rk) Social History Tobacco Use [...] nature WBC 6.7 4.0 - 10.[address] LAB RBC 3.26 (L) 4.70 - 6.[address] LAB Hemoglobin 11.2 (L) 13.5 - 18.0 [facility] g/dL [place] LAB HCT 31.9 (L) 42.0 - 52.0 % [facility] MCV 97.9 78 - 100 fL [facility] LAB MCH 34.4 (H) 27 - 31 pg [facility] LAB MCHC 35.1 32 - 37 g/dL [facility] LAB RDW-CV - PMC 12.4 <14.7 % [facility] PLATELET COUNT - PMC 256 150 - [address] LAB MPV 10.6 9.2 - 12.0 fL [facility] Specimen Performing Organization Address City/State/ZIP Code Phon e Number [facility] [address] [place] [address] documented in this encounter Visit Diagnoses Not on filedocumented in this encounter Care Teams Barrel Loader And Cleaner Relationship Specialty Start Date End Date Katia Stone PA-C PCP - General 05/02/[address] [place] [phone] documented as of this encounter
--- OUTSIDE RECORDS SUMMARY | 2021-12-14 01:05 | XMS_ITS | Encounter Summary ---
:1950 Author Organization [facility] Address [address] [place] [address] Care Team Providers Name Role Phone Katia Stone PA-C Primary Care Provider Encounter Details Date Type Department Care Team Description 08/11/2020 Results Only [facility] [address] [place] [address] [place], [place] [phone] (Wo rk) Social History Tobacco Use [...] EDT) PARASITE ID - PMC SEE NOTES [facility] Comment: [facility]ENTER LAB RESULT: No ova and parasites seen. Source:stool (If Cryptosporidium, Cyclospora, or Microsporidium are suspected, specific tests must be requested.) Single negative specimen does not rule out the possibility of a parasitic infection. Test performed [place] [address] Specimen Narrative [facility] - 08/14/2020 1 5:34 EDT stool Performing Organization Address [facility] Phon e Number [facility] [address] [place] [address] FECAL BACTERIAL PATHOGENS BY PCR (08/11/2020 14:50 EDT) Salmonella PCR Negative Negative [facility] Shigella/Enteroinvasi Negative Negative [facility] ve E. coli [facility] HN LAB CAMPYLOBACTER Negative Negative [facility] PCR [facility] Shiga Toxin PCR Negative Negative [facility] Comment: [facility]ENTER LAB Test performed or referred by The [address] [address] Specimen Performing Organization Address [facility] Phon e Number [facility] [address] [place] [address] documented in this encounter Visit Diagnoses Not on filedocumented in this encounter Care Teams Adjuster Relationship Specialty Start Date End Date Katia Stone PA-C PCP - General 05/02/[address] [place] [phone] documented as of this encounter
--- OUTSIDE RECORDS SUMMARY | 2021-12-14 01:05 | XMS_ITS | Encounter Summary ---
:1950 Author Organization [facility] Address [address] [place] [address] Care Team Providers Name Role Phone Katia Stone PA-C Primary Care Provider Encounter Details Date Type Department Care Team Description 08/09/2020 Results Only [facility] - Ester Valerio Imaging [facility] MD Annemarie Radiology Results 130 [facility] [address] [place], [place] [address] [place] [phone] (Wo rk) Social History Tobacco Use [...] 2 VIEWS (08/09/2020 8:33 EDT) Specimen Narrative [facility] RADIOLOGY - 2020 16:38 EDT ?[facility]: [facility] ?[address] ?[place] [address] ?Diagnostic Imaging Report ? Signed ? Patient Name:DAVID FARFAN ? Date of :1950 ?MR Number:[id number] ? Age:69 ?Sex:M ? Category: CR ?Date [...] Procedure Note Poncho Erickson [facility] - [facility]09/[facility] [address] [address] Diagnostic Imaging Report Signed Patient Name:DAVID FARFAN r:[id number] Date of :1950 MR Number:[id number] Age:69 Sex:M Category: CR Date of Exam:08/09/20 Procedure: CR: Abd; 2 Views Accession: [id number] Ordering Physician: Ester Valerio MD atient CC: [...] Phon e Number [facility] documented in this encounter Visit Diagnoses Not on filedocumented in this encounter Care Teams Shipping And Receiving Coordinator Relationship Specialty Start Date End Date Katia Stone PA-C PCP - General 05/02/[address] [place] [phone] documented as of this encounter
--- OUTSIDE RECORDS SUMMARY | 2021-12-14 01:05 | XMS_ITS | Encounter Summary ---
:1950 Author Organization [facility] Address [address] [place] [address] Care Team Providers Name Role Phone Katia Stone PA-C Primary Care Provider Encounter Details Date Type Department Care Team Description 08/09/2020 Results Only [facility] Virginia Quintana MD Dermatology - [facility] [address] [facility] [address] [place], [place] [address] [phone] [place], [place] [address] [phone] Social History Tobacco Use Types Packs/Day Years [...] EDT) Sodium 128 (L) 136 - 145 [facility] mEq/L [facility] Potassium 3.3 (L) 3.5 - 5.1 [facility] mEq/L [facility] Chloride 90 (L) 96 - 107 [facility] mEq/L [facility] CO2 Total 27.4 21 - 32 mEq/L [facility] Anion Gap 10.6 mEq/L [facility] BUN 11 7 - 25 mg/dl [facility] Creatinine 0.71 0.70 - 1.30 [facility] mg/dl [facility] Estimated GFR >60 >60 [facility] Comment: [facility] EGFR UNITS: mL/min/1.73 m 2 CKD-EPI Equation used to calculate. Glucose 117 (H) 74 - 106 [facility] mg/dl [facility] Calcium 8.3 (L) 8.5 - 10.1 [facility] mg/dl [facility] CALCIUM,CORRECTED - 9.4 8.5 - 10.5 [facility] PMC mg/dl [facility] BILIRUBIN - [facility] 1.30 (H) 0.00 - 1.00 [facility] mg/dl [facility] AST 62 (H) 15 - 37 U/L [facility] ALT 46 16 - 63 U/L [facility] Alkaline Phosphatase 114 46 - 116 U/L [facility] Total Protein 6.7 6.4 - 8.2 [facility] g/dl [place] [facility] Albumin 2.6 (L) 3.4 - 5.0 [facility] g/dl [place] [facility] GLOBULIN - [facility] 4.1 g/dl [facility] ALBUMIN/GLOBULIN 0.6 [facility] RATIO [facility] Specimen Performing Organization Address City/State/ZIP Code Phon e Number [facility] [address] [place] [address] (ABNORMAL) COMPLETE BLOOD COUNT AND DIFFERENTIAL (08/09/2020 5:35 EDT) WBC 10.3 4.0 - 10.[address] LAB RBC 2.98 (L) 4.70 - 6.00 [place] [address] 6/uL [place] [facility] Hemoglobin 10.6 (L) 13.5 - 18.0 [facility] g/dL [place] [facility] HCT 29.6 (L) 42.0 - 52.0 % [facility] MCV 99.3 78 - 100 fL [facility] LAB MCH 35.6 (H) 27 - 31 pg [facility] MCHC 35.8 32 - 37 g/dL [facility] RDW-CV - [facility] 13.8 <14.7 % [facility] PLATELET COUNT - [facility] 179 150 - [address] LAB MPV 11.6 9.2 - 12.0 fL [facility] NEUTROPHILS % (AUTO) 84.2 % [facility] LYMPHOCYTES % (AUTO) 7.2 % [facility] MONOCYTES % (AUTO) - 8.0 % [facility] EOSINOPHILS % (AUTO) 0.0 % [facility] BASOPHILS % (AUTO) - 0.1 % [facility] Immature Granulocyte 0.5 % [facility] % (Auto) [place] [facility] NUCLEATED RBC % 0.0 % [facility] (AUTO) [facility] NEUTROPHILS # (AUTO) 8.7 (H) 1.5 - 6.6 10 [facility] 3[facility] LAB LYMPHOCYTES # (AUTO) 0.7 (L) 1.0 - 3.5 10 [facility] - [facility] 3/uL [facility] MONOCYTES # (AUTO) - 0.8 <1.0 10 3/uL [facility] LAB EOSINOPHILS # (AUTO) 0.0 <0.7 10 3/uL [facility] Absolute Immature 0.05 <0.06 10 3/uL [facility] LAB DIFFERENTIAL METHOD Auto Differential [facility] Specimen Performing Organization Address City/State/ZIP Code Phon e Number [facility] [address] [place] [address] C DIFFICILE TOXIN PCR, F > 2 YRS - [facility] (08/09/2020 3:24 EDT) Specimen Narrative [facility] - 08/10/2020 6 :26 EDT ?? RUN DATE: 08/10/20 ? [facility] *LIVE* ? PAGE 1 ? RUN TIME: 625 ?Specimen Inquiry ? PATIENT: ADOLPHDAVID Juan ? ACCT: [id number] LOC: ??MS ? U: [id number] ? AGE/SX: 69/M ? ROOM: 138 ?RE08/09/20 ?? REG : ??Ester Valerio MD ? : ?1950 ?? BED: ??1 ?DIS: ? STATUS: ADM Astrid ?TLOC: ? SPEC #: [id number] ?ALEX: ? STATUS: ??COMP ? REQ #: [id number] ?RECD: 08/10/20 ? SUBM DR: Jennifer Tyson [...] END OF REPORT ? Performing Organization Address City/State/[facility] Code Phon e Number [facility] [address] [place] [address] documented in this encounter Visit Diagnoses Not on filedocumented in this encounter Care Teams Inspector Clip On Sunglasses Relationship Specialty Start Date End Date Katia Stone, BELLAC PCP - General 05/02/17 [address] [place] [phone] documented as of this encounter
--- OUTSIDE RECORDS SUMMARY | 2021-12-14 01:05 | XMS_ITS | Encounter Summary ---
:[address] [facility] Address [address] [place] [address] Care Team Providers Name Role Phone Katia Stone PA-C Primary Care Provider Encounter Details Date Type Department Care Team Description 08/29/2020 Results Only [facility]- [facility] Rowan Abad NP [phone] [place] [phone] (Wo rk) Social History Tobacco Use [...] EDT) Creatinine 0.61 (L) 0.70 - 1.30 [facility] mg/dl [facility]ENTER LAB Estimated GFR >60 >60 [facility] Comment: CENTER LAB EGFR UNITS: mL/min/1.73 m 2 CKD-EPI Equation used to calculate. Specimen Performing Organization Address City/[facility] Phon e Number [facility] [address] [place] [address] PLATELET COUNT (08/29/2020 5:05 EDT) Pathologist Sig nature PLATELET COUNT - [facility] 324 150 - 450 10 [facility] 3/uL [facility] Specimen Narrative [facility] - 08/29/2020 5 :41 EDT Comment ENOXAPARIN MONITORING Performing Organization Address City/[facility] Phon e Number [facility] [address] [place] [address] documented in this encounter Visit Diagnoses Not on filedocumented in this encounter Care Teams Bartender Helper Relationship Specialty Start Date End Date Katia Stone PA-C PCP - General 05/02/17 [address] [place] [phone] documented as of this encounter
--- OUTSIDE RECORDS SUMMARY | 2021-12-14 01:05 | XMS_ITS | Encounter Summary ---
:1950 Author Organization [facility] Address [address] [place] [address] Care Team Providers Name Role Phone Katia Stone PA-C Primary Care Provider Encounter Details Date Type Department Care Team Description 07/28/2020 Results Only [facility] - Augustina Stone, [facility] [address] [place] [address] [place], [place] [address] [phone] Social History Tobacco Use Types Packs/Day Years [...] 14:38 Resul ts for this GROUP - [facility] EDT procedure are i n the results section. FOLATE Routine 07/28/2020 14:38 Results for this EDT procedure are i n the results section. VITAMIN B12 Routine 07/28/2020 14:38 Results for this EDT procedure are i n the results section. documented in this encounter Results FOLATE (07/28/2020 14:38 EDT) Pathologist Sig nature Folate 9.0 >8.6 ng/mL [facility] Specimen Performing Organization Address [facility] [address] [place] [address] VITAMIN B12 (07/28/2020 14:38 EDT) Vitamin B12 265 193 - 986 [facility] Comment: pg/mL [facility]ENTER LAB The results of this assay can be falsely elevated due to the consumption of Biotin. Specimen Performing Organization Address [facility] e [facility] LAB [address] [place] [address] (ABNORMAL) IRON,TIBC,FERRITIN GROUP - [facility] (07/28/2020 14:38 EDT) Pathologist Sig nature Iron 158 65 - 175 mcg/dL [facility] Iron Binding 212 (L) 250 - 450 [facility] mcg/dL [facility] PERCENT IRON 75 (H) 14 - 50 % [facility] - [facility] Ferritin >1000 (H) 26 - 388 ng/mL [facility] Specimen Performing Organization Address [facility] LAB [address] [place] [address] MESSAGE - PMC (07/28/2020 14:38 EDT) Pathologist Sig nature MESSAGE - [facility] Comment: CENTER LAB WE HAVE NOT RECEIVED ORDERS. PLEASE SEND THEM TO US. Nunu BHARDWAJ. Specimen Narrative [facility] - 07/29/2020 2 :55 EDT NO ORDERS TIGER AND LAV Performing Organization Address City/State/ZIP Code Phon e Number [facility] [address] [place] [address] documented in this encounter Visit Diagnoses Not on filedocumented in this encounter Care Teams Lead Qa Analyst Relationship Specialty Start Date End Date Katia Stone PA-C PCP - General 05/02/17 [address] [place] [phone] documented as of this encounter
--- OUTSIDE RECORDS SUMMARY | 2021-12-14 01:05 | XMS_ITS | Encounter Summary ---
:1950 Author Organization [facility] Address [address] [place] [address] Care Team Providers Name Role Phone Katia Stone PA-C Primary Care Provider Reason for Visit Reason Onset Date Comments Other 06/21/2020 patient wants to can xin surgery Encounter Details Date Type Department Care Team Description 06/21/[address] [facility] Cherie Browne MD Other (patient wants Cardiothoracic Surgery - [address] [facility] to cancel surgery) [facility], [address] [place], [place] [address] [place] [address] [phone] (Wo rk) Social History Tobacco Use [...] with (Whitney). Pt was called by his Heat Treater Helper on 06/21 x 2 and finally Maru Villalobos the Heat Treater Helper sent the State Police to his house per Maru to do a welfare check as he doesn't follow instructions or return calls per Maru. He didn't go for a covid test and the ride was set up for him by Maru Heat Treater Helper and he cancelled it. He states he [...] Melania Dumas - 06/21/2020 1350 EDT Nila (Roving Changer) from [facility] calling to advise that patient wants to cancel surgery on Friday06/26/2020 as he believes he has pneumonia. Per Nila, patient has not been seen by anyone and declined calling ambulance to take him to ED. documented in this encounter Plan of Treatment Not on filedocumented as of this encounter Visit Diagnoses Not on filedocumented in this encounter Care Teams Paper Pattern Inspector Relationship Specialty Start Date End Date Katia Stone PA-C PCP - General 05/02/17 [address] [place] [phone] documented as of this encounter
--- OUTSIDE RECORDS SUMMARY | 2021-12-14 01:05 | XMS_ITS | Encounter Summary ---
:1950 Author Organization [facility] Address [address] [place] [address] Care Team Providers Name Role Phone Katia Stone PA-C Primary Care Provider Encounter Details Date Type Department Care Team Description 08/14/2020 Results Only [facility] - [facility]mos, [facility] [address] [place] [address] [place], [place] [phone] (Wo rk) Social History Tobacco Use [...] Magnesium 1.6 (L) 1.8 - 2.4 mg/dl [facility] Specimen Performing Organization Address City/State/ZIP Code Phon e Number [facility] [address] [place] [address] (ABNORMAL) COMPREHENSIVE METABOLIC PANEL (CMP) (08/14/2020 5:03 EDT) Sodium 138 136 - 145 [facility] mEq/L [facility] Potassium 3.6 3.5 - 5.1 [facility] mEq/L [facility] Chloride 103 96 - 107 [facility] mEq/L [facility] CO2 Total 28.4 21 - 32 mEq/L [facility] Anion Gap 6.6 mEq/L [facility] BUN 11 7 - 25 mg/dl [facility] Creatinine 0.51 (L) 0.70 - 1.30 [facility] mg/dl [facility] Estimated GFR >60 >60 [facility] Comment: [facility]ENTER [facility] EGFR UNITS: mL/min/1.73 m 2 CKD-EPI Equation used to calculate. Glucose 101 74 - 106 [facility] mg/dl [facility] Calcium 8.1 (L) 8.5 - 10.1 [facility] mg/dl [facility] CALCIUM,CORRECTED - 9.5 8.5 - 10.5 [facility] PMC mg/dl [facility] BILIRUBIN - PMC 0.40 0.00 - 1.00 [facility] mg/dl [facility] AST 34 15 - 37 U/L [facility] ALT 21 16 - 63 U/L [facility] Alkaline Phosphatase 102 46 - 116 U/L [facility] Total Protein 6.3 (L) 6.4 - 8.2 [facility] g/dl [facility] Albumin 2.2 (L) 3.4 - 5.0 [facility] g/dl [facility] GLOBULIN - [facility] 4.1 g/dl [facility] ALBUMIN/GLOBULIN 0.5 [facility] RATIO [facility] Specimen Performing Organization Address City/State/ZIP Code Phon e Number [facility] [address] [place] [address] (ABNORMAL) COMPLETE BLOOD COUNT AND DIFFERENTIAL (08/14/2020 5:03 EDT) WBC 5.1 4.0 - 10.5 10 [facility] 3/uL [facility] RBC 2.76 (L) 4.70 - 6.00 10 [facility] 6/uL [facility] Hemoglobin 9.9 (L) 13.5 - 18.0 g/dL [facility] HCT 28.7 (L) 42.0 - 52.0 % [facility] MCV 104.0 (H) 78 - 100 fL [facility] MCH 35.9 (H) 27 - 31 pg [facility] MCHC 34.5 32 - 37 g/dL [facility] RDW-CV - PMC 15.9 (H) <14.7 % [facility] PLATELET COUNT - 189 150 - 450 10 3/uL [facility] MPV 10.8 9.2 - 12.0 fL [facility] NEUTROPHILS % 54.7 % [facility] (AUTO) [facility] LYMPHOCYTES % 23.0 % [facility] (AUTO) [facility] MONOCYTES % (AUTO) 18.2 % [facility] EOSINOPHILS % 2.5 NOT ESTABLISHED % [facility] (AUTO) [facility] BASOPHILS % (AUTO) 0.8 % [facility] Immature 0.8 % [facility] Granulocyte % [facility] (Auto) NUCLEATED RBC % 0.0 % [facility] (AUTO) - PMC [facility] NEUTROPHILS # 2.8 1.5 - 6.6 10 3/uL [facility] (AUTO) - [facility] LAB LYMPHOCYTES # 1.2 1.0 - 3.5 10 3/uL [facility] (AUTO) - [facility] LAB MONOCYTES # (AUTO) 0.9 <1.0 10 3/uL [facility] - [facility] LAB EOSINOPHILS # 0.1 <0.7 10 3/uL [facility] (AUTO) - [facility] LAB Absolute Immature 0.04 <0.06 10 3/uL [facility] Granulocyte [facility] DIFFERENTIAL Auto Differential [facility] METHOD [facility] Specimen Narrative [facility] - 08/14/2020 6 :11 EDT Comment ENOXAPARIN MONITORING Performing Organization Address City/State/ZIP Code Phon e Number [facility] [address] [place] [address] documented in this encounter Visit Diagnoses Not on filedocumented in this encounter Care Teams Vegetable Vendor Relationship Specialty Start Date End Date Katia Stone, BELLAC PCP - General 05/02/17 [address] [place] [phone] documented as of this encounter
--- OUTSIDE RECORDS SUMMARY | 2021-12-14 01:05 | XMS_ITS | Encounter Summary ---
:1950 Author Organization [facility] Address [address] [place] [address] Care Team Providers Name Role Phone Katia Stone PA-C Primary Care Provider Reason for Visit Reason Onset Date Comments Confirmation 06/19/2020 Encounter Details Date Type Department Care Team Description 06/19/2020 Telephone [facility] Cardiothoracic Cat Sutherland RN Confirmation Surgery - [facility] s [address], [place] [id number] Social History Tobacco Use Types Packs/Day Years [...] the patient to call Maru Villalobos his Labor Utilization Superintendent as she is arranging his rides for his COVID test and Surgery as well as his instructions for surgery. I also left Maru a message as well. elephone Encounter - Alma Dhillon - 06/20/2020 0938 EDT FYI---Patient's Titrator calls to say she is not able [...] well to Maru Villalobos RN the patient's Labor Utilization Superintendent at PCP office, which she did receive. Maru had stated previously that she is arranging a ride for the patient to his COVID test 3-4 days prior to surgery and also arranging ride to [facility] on the day of surgery and will assist in helping patient understand instructions. I have called Maru Villalobos RN and left her a message to call me back on 06/20. I will also call the patient on 06/20 New phone numbers for Maru: [phone] EXT#4, EXT#[phone] Or direct line = [phone] signed by Cat Sutherland RN at 06/19/2020 16:46 EDTdocumented in this encounter Plan of Treatment Not on filedocumented as of this encounter Visit Diagnoses Not on filedocumented in this encounter Care Teams Regional Vice President Surgical Sales Relationship Specialty Start Date End Date Katia Stone PA-C PCP - General 05/02/17 [address] [place] [phone] documented as of this encounter
--- OUTSIDE RECORDS SUMMARY | 2021-12-14 01:05 | XMS_ITS | Encounter Summary ---
:1950 Author Organization [facility] Address [address] [place] [address] Care Team Providers Name Role Phone Katia Stone PA-C Primary Care Provider Encounter Details Date Type Department Care Team Description 08/25/2020 Lab Requisition [facility] Outr Resulting Lab, Pathology & Laboratory Provider [facility] [address] [place] [address] Social History Tobacco Use Types [...] Sig nature Herpes Simplex Virus Negative Negative [facility] Molecular Detection 1, LABORATORY SERVICE S PCR Herpes Simplex Virus Negative Negative [facility] Molecular Detection 2, LABORATORY SERVICE S PCR Specimen Swab - Entire upper limb (body structure ) Performing Organization Address City/State/ZIP Code Phon e Number [facility]OR[facility]ORY [address] [place] [address] SERVICES documented in this encounter Visit Diagnoses Not on filedocumented in this encounter Care Teams Insurance Counsel Relationship Specialty Start Date End Date Katia Stone PA-C PCP - General 05/02/[address] [facility] [place] [phone] documented as of this encounter
--- OUTSIDE RECORDS SUMMARY | 2021-12-14 01:05 | XMS_ITS | Encounter Summary ---
:1950 Author Organization [facility] Address [address] [place] [address] Care Team Providers Name Role Phone Katia Stone PA-C Primary Care Provider Encounter Details Date Type Department Care Team Description 08/22/2020 Results Only [facility]- [facility] Rowan Abad NP [phone] [place] [phone] (Wo rk) Social History Tobacco Use [...] nature Magnesium 1.8 1.8 - 2.4 mg/dl [facility] Specimen Performing Organization Address [facility] [place] Phon e Number [facility] [address] [place] [address] (ABNORMAL) BASIC METABOLIC PANEL (BMP) (08/22/2020 5:30 EDT) Sodium 133 (L) 136 - 145 mEq/L [facility] Potassium 3.7 3.5 - 5.1 mEq/L [facility] Chloride 101 96 - 107 mEq/L [facility] CO2 Total 26.1 21 - 32 mEq/L [facility] Anion Gap 6.9 mEq/L [facility] BUN 8 7 - 25 mg/dl [facility] Creatinine 0.67 (L) 0.70 - 1.30 [facility] mg/dl [facility] Estimated GFR >60 >60 [facility] Comment: CENTER LAB EGFR UNITS: mL/min/1.73 m 2 CKD-EPI Equation used to calculate. Glucose 94 74 - 106 mg/dl [facility] Calcium 8.2 (L) 8.5 - 10.1 [facility] mg/dl [facility] LAB Specimen Performing Organization Address [facility] Phon e Number [facility] [address] [place] [address] (ABNORMAL) COMPLETE BLOOD COUNT AND DIFFERENTIAL (08/22/2020 5:30 EDT) WBC 6.0 4.0 - 10.5 10 [facility] 3/uL [place] [facility] RBC 2.84 (L) 4.70 - 6.00 10 [facility] 6/uL [facility] Hemoglobin 10.0 (L) 13.5 - 18.0 g/dL [facility] HCT 28.3 (L) 42.0 - 52.0 % [facility] MCV 99.6 78 - 100 fL [facility] MCH 35.2 (H) 27 - 31 pg [facility] MCHC 35.3 32 - 37 g/dL [facility] RDW-CV - PMC 14.3 <14.7 % [facility] PLATELET COUNT - 209 150 - 450 10 3/uL [facility] MPV 11.7 9.2 - 12.0 fL [facility] NEUTROPHILS % 58.1 % [facility] (AUTO) [facility] LYMPHOCYTES % 22.9 % [facility] (AUTO) [facility] MONOCYTES % (AUTO) 14.4 % [facility] EOSINOPHILS % 3.3 NOT ESTABLISHED % [facility] (AUTO) [facility] BASOPHILS % (AUTO) 1.0 % [facility] Immature 0.3 % [facility] Granulocyte [facility] (Auto) NUCLEATED RBC % 0.0 % [facility] (AUTO) [facility] NEUTROPHILS # 3.5 1.5 - 6.6 10 3/uL [facility] (AUTO) [facility] LYMPHOCYTES # 1.4 1.0 - 3.5 10 3/uL [facility] (AUTO) [facility] MONOCYTES # (AUTO) 0.9 <1.0 10 3/uL [facility] LAB EOSINOPHILS # 0.2 <0.7 10 3/uL [facility] (AUTO) [facility] BASOPHILS # (AUTO) 0.1 <0.1 10 3/uL [facility] LAB Absolute Immature 0.02 <0.06 10 3/uL [facility] LAB DIFFERENTIAL Auto Differential [facility] Specimen Performing Organization Address City/State/ZIP Code Phon e Number [facility] [address] [place] [address] documented in this encounter Visit Diagnoses Not on filedocumented in this encounter Care Teams Architecture Consultant Relationship Specialty Start Date End Date Katia Stone, PABijalC PCP - General 05/02/17 [address] [place] [phone] documented as of this encounter
--- OUTSIDE RECORDS SUMMARY | 2021-12-14 01:05 | XMS_ITS | Encounter Summary ---
:1950 Author Organization [facility] Address [address] [place] [address] Care Team Providers Name Role Phone Katia Stone PA-C Primary Care Provider Encounter Details Date Type Department Care Team Description 08/18/2020 Results Only [facility] - [facility] [address] [place], [place] [phone] (Wo rk) Social History Tobacco Use [...] EDT) Sodium 138 136 - 145 mEq/L [facility] Potassium 3.3 (L) 3.5 - 5.1 mEq/L [facility] Chloride 101 96 - 107 mEq/L [facility] CO2 Total 31.3 21 - 32 mEq/L [facility] Anion Gap 5.7 mEq/L [facility] BUN 9 7 - 25 mg/dl [facility] Creatinine 0.66 (L) 0.70 - 1.30 [facility] mg/dl [place] [facility] Estimated GFR >60 >60 [facility] Comment: CENTER LAB EGFR UNITS: mL/min/1.73 m 2 CKD-EPI Equation used to calculate. Glucose 86 74 - 106 mg/dl [facility] Calcium 8.0 (L) 8.5 - 10.1 [facility] mg/dl [place] [facility] Specimen Performing Organization Address City/State/ZIP Code Phon e Number [facility] [address] [place] [address] (ABNORMAL) COMPLETE BLOOD COUNT (08/18/2020 5:15 EDT) Pathologist Sig nature WBC 5.2 4.0 - 10.5 10 [facility] 3/uL [facility] RBC 2.68 (L) 4.70 - 6.00 10 [facility] 6/uL [place] [facility] Hemoglobin 9.4 (L) 13.5 - 18.0 [facility] g/dL [place] [facility] HCT 27.5 (L) 42.0 - 52.0 % [facility] MCV 102.6 (H) 78 - 100 fL [facility] MCH 35.1 (H) 27 - 31 pg [facility] MCHC 34.2 32 - 37 g/dL [facility] RDW-CV - PMC 15.2 (H) <14.7 % [facility] PLATELET COUNT - [facility] 233 150 - 450 10 [place] [address]/[facility] LAB MPV 10.3 9.2 - 12.0 [facility] LAB Specimen Performing Organization Address City/State/ZIP Code Phon e Number [facility] [address] [place] [address] documented in this encounter Visit Diagnoses Not on filedocumented in this encounter Care Teams Hospice Admitting Clerk Relationship Specialty Start Date End Date Katia Stone PA-C PCP - General 05/02/[address] [place] [phone] documented as of this encounter
--- OUTSIDE RECORDS SUMMARY | 2021-12-14 01:05 | XMS_ITS | Encounter Summary ---
:1950 Author Organization [facility] Address [address] [place] [address] Care Team Providers Name Role Phone Katia Stone PA-C Primary Care Provider Encounter Details Date Type Department Care Team Description 08/08/2020 Results Only Imaging [facility] - Justin Christy [facility] MD Hallie Radiology Results [address] [place] [phone] (Wo rk) Social History Tobacco Use Types [...] 2 VIEWS (08/08/2020 15:36 EDT) Specimen Narrative [facility] RADIOLOG[facility] - 2020 15:36 EDT ?[facility]: [facility] ?[address] ?[place] [address] ?Diagnostic Imaging Report ? Signed ? Patient Name:DAVID FARFAN ? Date of :1950 ?MR Number:[id number] ? Age:69 ?Sex:M ? Category: CR ?Date [...] regarding this report , please contact the [facility] at [phone] ? Dictated by: Temo Son MD ?D/ 15 ?? 36 ?? Transcribed by: SSCOURTNEY ?D/T: ? E-Signed by: Temo Son MD ?D/ 19 ?? 38 ?? Procedure Note Temo Son MD - 08/08/2020 [facility] [address] [address] Diagnostic Imaging Report Signed Patient Name:DAVID FARFAN [id number] Date of :1950 MR Number:[id number] Age:69 Sex:M Category: CR Date of Exam:08/08/20 [...] regarding this report , please contact the [facility] at [phone] Dictated by: Temo Son MD D/T: 08/08 15 36 Transcribed by: DEBRA D/T: E-Signed by: Temo Son MD D/T: 08/08 19 38 Performing Organization Address City/State/ZIP Code Phon e Number [facility] RADIOLOGY CT ABDOMEN PELVIS W CONTRAST (08/08/2020 15:36 EDT) Specimen Narrative [facility] - 2020 15:36 EDT ?[facility]: [facility] ?[address] ?[place], [place] [address] ?Diagnostic Imaging Report ? Signed ? Patient Name:ADOLPH,DAVID F ? Date of :1950 ?MR Number:[id number] ? Age:69 ?Sex:M ? Category: CT ?Date [...] regarding this report , [facility] at [phone] ? Dictated by: Temo Son MD ?D/ 15 ?? 36 ?? Transcribed by: DEBRA ?D/T: ? E-Signed by: Temo Son MD ?D/ 19 ?? 36 ?? Procedure Note Temo Son MD - 08/08/2020 [facility] [place] [id number] Diagnostic Imaging Report Signed Patient Name:DAVID FARFAN r:[id number] Date of :1950 MR Number:[id number] Age:69 Sex:M Category: CT Date of Exam:08/08/20 Procedure: CT: Abd Pelvis; wit cntrst A ccession: [id number] Ordering Physician: Tony Christy MD Patient [...] please contact the [facility] Operations [facility] at [phone] Dictated by: Temo Son MD D/T: 08/08 15 36 Transcribed by: DEBRA D/T: E-Signed by: Temo Son MD D/T: 08/08 19 36 Performing Organization Address City/State/ZIP Code Phon e Number [facility] documented in this encounter Visit Diagnoses Not on filedocumented in this encounter Care Teams Accounting Clerks Supervisor Relationship Specialty Start Date End Date Katia Stone PA-C PCP - General 05/02/[address] [place] [phone] documented as of this encounter
--- OUTSIDE RECORDS SUMMARY | 2021-12-14 01:05 | XMS_ITS | Encounter Summary ---
:1950 Author Organization [facility] Address [address] [place] [address] Care Team Providers Name Role Phone Katia Stone PA-C Primary Care Provider Reason for Visit (Routine/Next Available) - New Request Specialty Diagnoses / Procedures Referred By Contact Refer red To Contact Procedures Unknown, Provider, CT OUTSIDE IMAGES BODY Phone: Referral ID Status Reason Start Date Expiration Date Visits V isits Requested Authorized [id number] New Request 06/20/2021 1 1 Encounter Details Date Type Department Care Team Description 06/20/2021 Hospital Encounter [facility] Center Secondary Reads [place] Social History Tobacco [...] on filedocumented in this encounter Care Teams Edging Machine Operator Relationship Specialty Start Date End Date Katia Stone, BELLAC PCP - General 05/02/17 [address] [place] [phone] documented as of this encounter
--- OUTSIDE RECORDS SUMMARY | 2021-12-14 01:05 | XMS_ITS | Encounter Summary ---
:1950 Author Organization [facility] Address [address] [place] [address] Care Team Providers Name Role Phone Katia Stone PA-C Primary Care Provider Reason for Visit Reason Onset Date Comments Discuss Possible Transfer 06/20/2021 Encounter Details Date Type Department Care Team Description 06/20/2021 Telephone [facility] Jeancarlos-Amos Carver D iscuss Possible MEDICINE MD Transfer [address] [place] [address] [place] [address] (Wo rk) Social History Tobacco [...] 06/20/2021 1415 EDT PPS Call Requesting Facility: [facility] Requesting Provider: Dr. Alegria Date: 06/20/21 Time [...] effusion (per read from imaging 08/08/20 from [facility], thisis chronic) and R iliac + gluteal [...] filedocumented in this encounter Care Teams Senior Software Project Manager Relationship Specialty Start Date End Date Katia Stone PA-C PCP - General 05/02/[address] [place] [id number] documented as of this encounter
--- OUTSIDE RECORDS SUMMARY | 2021-12-14 01:05 | XMS_ITS | Encounter Summary ---
:1950 Author Organization [facility] Address [address] [place] [address] Care Team Providers Name Role Phone Katia Stone PA-C Primary Care Provider Encounter Details Date Type Department Care Team Description 08/10/2020 Results Only [facility] - [facility] Geetha Valerio, Rheumatology [address] [address] [address] [place] [address] (Wo rk) Social History Tobacco Use [...] Magnesium 1.5 (L) 1.8 - 2.4 mg/dl [facility] Specimen Performing Organization Address City/State/ZIP Code Phon e Number [facility] [address] [place] [address] (ABNORMAL) BASIC METABOLIC PANEL (BMP) (08/10/2020 5:35 EDT) Sodium 133 (L) 136 - 145 mEq/L [facility] Potassium 3.4 (L) 3.5 - 5.1 mEq/L [facility] Chloride 98 96 - 107 mEq/L [facility] CO2 Total 27.2 21 - 32 mEq/L [facility] Anion Gap 7.8 mEq/L [facility] BUN 6 (L) 7 - 25 mg/dl [facility] Creatinine 0.54 (L) 0.70 - 1.30 [facility] mg/dl [facility] Estimated GFR >60 >60 [facility] Comment: CENTER LAB EGFR UNITS: mL/min/1.73 m 2 CKD-EPI Equation used to calculate. Glucose 86 74 - 106 mg/dl [facility] Calcium 7.7 (L) 8.5 - 10.1 [facility] mg/dl [facility] Specimen Performing Organization Address [facility] [address] [place] [address] (ABNORMAL) HEPATIC FUNCTION PANEL (ALB,ALK PHOS,ALT,AST,DBIL,TOT BOSSMAN,TOT PROT) (08/10/2020 5:35 EDT) Pathologist Sig nature BILIRUBIN - [facility] 0.90 0.00 - 1.00 [facility] mg/dl [facility] DIRECT BILIRUBIN - 0.50 (H) 0.00 - 0.30 [facility] mg/dl [facility] INDIRECT BILIRUBIN - 0.40 0.00 - 0.80 [facility] mg/dl [facility] AST 50 (H) 15 - 37 U/L [facility] ALT 37 16 - 63 U/L [facility] Alkaline Phosphatase 97 46 - 116 U/L [facility] Total Protein 6.1 (L) 6.4 - 8.2 g/dl [facility] Albumin 2.3 (L) 3.4 - 5.0 g/dl [facility] GLOBULIN - [facility] 3.8 g/dl [facility] ALBUMIN/GLOBULIN 0.6 [facility] RATIO - [facility] LAB Specimen Performing Organization Address [facility] [address] [place] [address] (ABNORMAL) COMPLETE BLOOD COUNT AND DIFFERENTIAL (08/10/2020 5:35 EDT) WBC 7.0 4.0 - 10.5 10 [facility] 3/uL [facility] RBC 2.72 (L) 4.70 - 6.00 [facility] 10 6/uL [facility] Hemoglobin 9.7 (L) 13.5 - 18.0 [facility] g/dL [facility] HCT 27.9 (L) 42.0 - 52.0 % [facility] MCV 102.6 (H) 78 - 100 fL [facility] MCH 35.7 (H) 27 - 31 pg [facility] MCHC 34.8 32 - 37 g/dL [facility] RDW-CV - PMC 14.7 <14.7 % [facility] PLATELET COUNT - [facility] 180 150 - [address] LAB MPV 11.0 9.2 - 12.0 fL [facility] NEUTROPHILS % (AUTO) 65.5 % [facility] LYMPHOCYTES % (AUTO) 17.5 % [facility] MONOCYTES % (AUTO) - 13.9 % [facility] EOSINOPHILS % (AUTO) 2.1 % [facility] BASOPHILS % (AUTO) - 0.4 % [facility] Immature Granulocyte 0.6 % [facility] % (Auto) [facility] NUCLEATED RBC % 0.0 % [facility] (AUTO) [facility] LAB NEUTROPHILS # (AUTO) 4.6 1.5 - 6.[address] LAB LYMPHOCYTES # (AUTO) 1.2 1.0 - 3.[address] LAB MONOCYTES # (AUTO) - 1.0 <1.0 10 3/[facility] LAB EOSINOPHILS # (AUTO) 0.2 <0.7 10 3/[facility] LAB Absolute Immature 0.04 <0.06 10 3/[facility] LAB DIFFERENTIAL METHOD Auto Differential [facility] Specimen Performing Organization Address City/State/ZIP Code Phon e Number [facility] [address] [place] [address] documented in this encounter Visit Diagnoses Not on filedocumented in this encounter Care Teams Windows Architect Relationship Specialty Start Date End Date Katia Stone PA-C PCP - General 05/02/[address] [place] [phone] documented as of this encounter
--- OUTSIDE RECORDS SUMMARY | 2021-12-14 01:05 | XMS_ITS | Encounter Summary ---
:1950 Author Organization [facility] Address [address] [place] [address] Care Team Providers Name Role Phone Katia Stone PA-C Primary Care Provider Reason for Visit Reason Onset Date Comments Appointment Related 06/22/2020 Encounter Details Date Type Department Care Team Description 06/22/2020 Telephone [facility] Cherie Browne MD Appointment Related Cardiothoracic Surgery - [address] [place] [address], [address], [address] [place], [place] [address] [place] [address] [phone] (Wo rk) Social History Tobacco Use [...] on filedocumented in this encounter Care Teams Program Mgr Relationship Specialty Start Date End Date Katia Stone PA-C PCP - General 05/02/[address] [place] [phone] documented as of this encounter
--- OUTSIDE RECORDS SUMMARY | 2021-12-14 01:05 | XMS_ITS | Encounter Summary ---
:1950 Author Organization [facility] Address [address] [place] [address] Care Team Providers Name Role Phone Katia Stone PA-C Primary Care Provider Encounter Details Date Type Department Care Team Description 09/06/[address] [facility]- [facility] Rowan Abad NP [phone] [place] [phone] (Wo rk) Social History Tobacco Use [...] EDT) Pathologist Sig nature PLATELET COUNT - [facility] 236 150 - 450 10 [facility] 3/uL [facility] Specimen Narrative [facility] - 09/06/2020 5 :58 EDT Comment ENOXAPARIN MONITORING Performing Organization Address City/[facility] Code Phon e Number [facility] [address] [place] [address] (ABNORMAL) CREATININE WITH GFR - PMC (09/06/2020 5:05 EDT) Creatinine 0.60 (L) 0.70 - 1.30 [facility] mg/dl [facility] Estimated GFR >60 >60 [facility] Comment: [facility]ENTER LAB EGFR UNITS: mL/min/1.73 m 2 CKD-EPI Equation used to calculate. Specimen Performing Organization Address [facility] e Number [facility] [address] [place] [address] documented in this encounter Visit Diagnoses Not on filedocumented in this encounter Care Teams Retail Store Associate Relationship Specialty Start Date End Date Katia Stone PA-C PCP - General 05/02/[address] [place] [phone] documented as of this encounter
--- OUTSIDE RECORDS SUMMARY | 2021-12-14 01:05 | XMS_ITS | Encounter Summary ---
:1950 Author Organization [facility] Address [address] [place] [address] Care Team Providers Name Role Phone Katia Stone PA-C Primary Care Provider Encounter Details Date Type Department Care Team Description 08/16/2020 Results Only [facility] - [facility] [address] [place], [place] [phone] (Wo rk) Social History Tobacco Use [...] EDT) Sodium 137 136 - 145 mEq/L [facility] Potassium 3.5 3.5 - 5.1 mEq/L [facility] Chloride 103 96 - 107 mEq/L [facility] CO2 Total 28.1 21 - 32 mEq/L [facility] Anion Gap 5.9 mEq/L [facility] BUN 14 7 - 25 mg/dl [facility] Creatinine 0.57 (L) 0.70 - 1.30 [facility] mg/dl CENTER LAB Estimated GFR >60 >60 [facility] Comment: CENTER LAB EGFR UNITS: mL/min/1.73 m 2 CKD-EPI Equation used to calculate. Glucose 86 74 - 106 mg/dl [facility] Calcium 8.0 (L) 8.5 - 10.1 [facility] mg/dl [facility] Specimen Performing Organization Address City/State/ZIP Code Phon e Number [facility] [address] [place] [address] (ABNORMAL) COMPLETE BLOOD COUNT (08/16/2020 5:20 EDT) Pathologist Sig nature WBC 5.0 4.0 - 10.5 10 [facility] 3/uL [facility] RBC 2.65 (L) 4.70 - 6.00 10 [facility] 6/uL [facility] Hemoglobin 9.3 (L) 13.5 - 18.0 [facility] g/dL [facility] HCT 27.3 (L) 42.0 - 52.0 % [facility] MCV 103.0 (H) 78 - 100 fL [facility] MCH 35.1 (H) 27 - 31 pg [facility] MCHC 34.1 32 - 37 g/dL [facility] RDW-CV - PMC 15.1 (H) <14.7 % [facility] PLATELET COUNT - [facility] 202 150 - 450 10 [place] [address]/[facility] LAB MPV 10.1 9.2 - 12.0 [facility] LAB Specimen Performing Organization Address City/State/ZIP Code Phon e Number [facility] [address] [place] [address] documented in this encounter Visit Diagnoses Not on filedocumented in this encounter Care Teams Warehouse Helper Relationship Specialty Start Date End Date Katia Stone PA-C PCP - General 05/02/17 [address] [place] [phone] documented as of this encounter
--- OUTSIDE RECORDS SUMMARY | 2021-12-14 01:05 | XMS_ITS | Encounter Summary ---
:[address] [facility] Address [address] [place] [address] Care Team Providers Name Role Phone Katia Stone PA-C Primary Care Provider Encounter Details Date Type Department Care Team Description 09/10/2020 Results Only [facility] Rowan Abad NP [phone] [place] [phone] (Wo rk) Social History Tobacco Use [...] EDT) Pathologist Sig nature PLATELET COUNT - [facility] 250 150 - 450 10 [facility] 3/uL [facility]ENTER LAB Specimen Narrative [facility] - 09/10/2020 6 :49 EDT Comment ENOXAPARIN MONITORING Performing Organization Address City/[facility] Code Phon e Number [facility] [address] [place] [address] (ABNORMAL) CREATININE WITH GFR - PMC (09/10/2020 5:40 EDT) Creatinine 0.57 (L) 0.70 - 1.30 [facility] mg/dl [facility]ENTER LAB Estimated GFR >60 >60 [facility] Comment: CENTER LAB EGFR UNITS: mL/min/1.73 m 2 CKD-EPI Equation used to calculate. Specimen Performing Organization Address [facility] e [facility] [address] [place] [address] documented in this encounter Visit Diagnoses Not on filedocumented in this encounter Care Teams Prop Setter Relationship Specialty Start Date End Date Katia Stone PA-C PCP - General 05/02/17 [address] [place] [phone] documented as of this encounter
--- OUTSIDE RECORDS SUMMARY | 2021-12-14 01:05 | XMS_ITS | Encounter Summary ---
:1950 Author Organization [facility] Address [address] [place] [address] Care Team Providers Name Role Phone Katia Stone PA-C Primary Care Provider Reason for Visit Reason Comments Diarrhea Extremity Weakness Alcohol Problem Palliative Care Symptom Management Encounter Details Date Type Department Care Team Description 08/25/2020 External Contact [facility] Cooper Stinson MD Frailty (Primary Dx); - [address] ETOH abus e; [address] Grief; [facility] Palliative care by [address] [place] [address] [phone] (Wo rk) Social History Tobacco Use [...] chronic ETOH use who was admitted to [facility] with weakness, diarrhea, and regular ETOH [...] be receptive to formal psychotherapy. A bereavement pre coder through [facility] may be a good fit as well. Re: his advance directive. 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 Present for [...] his heart attack and was transferred to [place]. He has had several cardiac issues since. He is originally from [place] and lived in the [facility] [place] area until 2018 when his medical issues became more acute. S shannan then, he has lived in [place], had lived with his son Tyrese until his and more recently living with Tyrese's partner Whitney. He was raised on a farm in [place] with 7 siblings. He farmed himself, [...] Stinson MD 08/25/2020 16:11 Site of Visit: [facility] I spent a total of 55 [...] specialist documented in this encounter Care Teams Inclusion Internship Relationship Specialty Start Date End Date Katia Stone PA-C PCP - General 05/02/17 [address] [place] [phone] documented as of this encounter
--- OUTSIDE RECORDS SUMMARY | 2021-12-14 01:05 | XMS_ITS | Encounter Summary ---
:1950 Author Organization [facility] Address [address] [place] [address] Care Team Providers Name Role Phone Katia Stone PA-C Primary Care Provider Encounter Details Date Type Department Care Team Description 08/13/2020 Lab Requisition [facility] Outr Resulting Lab, Pathology & Laboratory Provider [facility] [address] [place] [address] Social History Tobacco Use Types [...] Sig nature Parasite No ova and parasites [facility] seen. LABORATORY SERVICES Specimen Feces - Specimen from rectum (specimen) Narrative [facility] - 08/14/2020 11:44 EDT (If Cryptosporidium, Cyclospora, or Micr osporidium are suspected, specific tests must be requested.) Single negative specimen does not rule out the possibility of a parasitic infection. Performing Organization Address City/State/ZIP Code Phon e Number [facility] [address] [place] [address] SERVICES documented in this encounter Visit Diagnoses Not on filedocumented in this encounter Care Teams Waterproof Coating Machine Tender Relationship Specialty Start Date End Date Katia Stone PA-C PCP - General 05/02/17 [address] [place] [phone] documented as of this encounter
--- OUTSIDE RECORDS SUMMARY | 2021-12-14 01:05 | XMS_ITS | Encounter Summary ---
:1950 Author Organization [facility] Address [address] [place] [address] Care Team Providers Name Role Phone Katia Stone PA-C Primary Care Provider Encounter Details Date Type Department Care Team Description 08/08/2020 Results Only [facility] Virginia Quintana MD Dermatology - [facility] [address] [place], [place] [address] [phone] [place], [place] [address] [phone] Social History Tobacco Use Types Packs/Day Years [...] 08/08/2020 21:17 Resu lts for this - [facility] EDT procedure are i n the results section. MAGNESIUM Routine 08/08/2020 16:47 Results for this EDT procedure are i n the results section. documented in this encounter Results ADD ON TEST REQUEST - [facility] (08/08/2020 21:17 EDT) Pathologist Sig nature Special Requests ADD ON DONE [facility] Comment: CENTER LAB All tests (see tests in sample comments) have been add ed as requested. Specimen Narrative [facility] - 08/08/2020 2 1:57 EDT ED this evening Mg Performing Organization Address City/[facility]/ZIP Code Phon e Number [facility] [address] [place] [address] (ABNORMAL) MAGNESIUM (08/08/2020 16:47 EDT) Pathologist Sig nature Magnesium 1.7 (L) 1.8 - 2.4 mg/dl [facility] Specimen Performing Organization Address City/[facility]/ZIP Code Phon e Number [facility] [address] [place] [address] documented in this encounter Visit Diagnoses Not on filedocumented in this encounter Care Teams Trimmer And Reinforcer Relationship Specialty Start Date End Date Katia Stone PA-C PCP - General 05/02/17 [address] [place] [phone] documented as of this encounter
--- OUTSIDE RECORDS SUMMARY | 2021-12-14 01:05 | XMS_ITS | Encounter Summary ---
:1950 Author Organization [facility] Address [address] [place] [address] Care Team Providers Name Role Phone Katia Stone PA-C Primary Care Provider Encounter Details Date Type Department Care Team Description 08/20/2020 Results Only [facility] [address] [place] [address] [place], [place] [phone] (Wo rk) Social History Tobacco Use [...] 08/20/2020 12:51 Resu lts for this - [facility] EDT procedure are i n the results section. documented in this encounter Results ADD ON TEST REQUEST - [facility] (08/20/2020 12:51 EDT) Pathologist Sig nature Special Requests ADD ON DONE [facility] Comment: CENTER LAB All tests (see tests in sample comments) have been add ed as requested. Specimen Narrative [facility] - 08/20/2020 1 2:58 EDT today on the med/surg Magnesium Performing Organization Address City/[facility] Code Phon e Number [facility] [address] [place] [address] documented in this encounter Visit Diagnoses Not on filedocumented in this encounter Care Teams Supervisor Major Appliance Assembly Relationship Specialty Start Date End Date Katia Stone PA-C PCP - General 05/02/17 [address] [place] [phone] documented as of this encounter
--- OUTSIDE RECORDS SUMMARY | 2021-12-14 01:05 | XMS_ITS | Encounter Summary ---
:1950 Author Organization [facility] Address [address] [place] [address] Care Team Providers Name Role Phone Katia Stone PA-C Primary Care Provider Encounter Details Date Type Department Care Team Description 08/11/2020 Results Only [facility] - [facility] Geetha Valerio, Rheumatology [address] [facility] [address] [place] [address] [address] [place] [address] (Wo rk) Social History Tobacco Use [...] e Number [facility] [address] [place] [address] (ABNORMAL) BASIC METABOLIC PANEL (BMP) (08/11/2020 5:25 [...] LAB Creatinine 0.51 (L) 0.70 - 1.30 [facility] mg/dl CENTER LAB Estimated GFR >60 >60 [facility] Comment: CENTER LAB EGFR UNITS: mL/min/1.73 m 2 CKD-EPI Equation used to calculate. Glucose 112 (H) 74 - 106 mg/dl [facility] Calcium 7.7 (L) 8.5 - 10.1 [facility] mg/dl [facility] LAB Specimen Performing Organization Address City/[facility]/ZIP Code Phon e Number [facility] [address] [place] [address] (ABNORMAL) HEPATIC FUNCTION PANEL (ALB,ALK PHOS,ALT,AST,DBIL,TOT BOSSMAN,TOT PROT) (08/11/2020 5:25 EDT) Pathologist Sig nature BILIRUBIN - PMC 0.70 0.00 - 1.00 [facility] mg/dl [facility] DIRECT BILIRUBIN - PMC 0.30 0.00 - 0.30 [facility] mg/dl [facility] INDIRECT BILIRUBIN - 0.40 0.00 - 0.80 [facility] mg/dl [facility] AST 39 (H) 15 - 37 U/L [facility] ALT 30 16 - 63 U/L [facility] Alkaline Phosphatase 95 46 - 116 U/L [facility] Total Protein 6.1 (L) 6.4 - 8.2 g/dl [facility] Albumin 2.2 (L) 3.4 - 5.0 g/dl [facility] GLOBULIN - [facility] 3.9 g/dl [facility] ALBUMIN/GLOBULIN RATIO 0.5 [facility] LAB Specimen Performing Organization Address City/[facility]/ZIP Code Phon e Number [facility] [address] [place] [address] documented in this encounter Visit Diagnoses Not on filedocumented in this encounter Care Teams Construction Rep Relationship Specialty Start Date End Date Katia Stone PA-C PCP - General 05/02/17 [address] [place] [phone] documented as of this encounter
--- OUTSIDE RECORDS SUMMARY | 2021-12-14 01:05 | XMS_ITS | Encounter Summary ---
:1950 Author Organization [facility] Address [address] [place] [address] Care Team Providers Name Role Phone Katia Stone PA-C Primary Care Provider Encounter Details Date Type Department Care Team Description 06/21/2021 Lab Requisition [facility] Virginia Price A cute cholecystitis Pathology & DO Laboratory Medicine - [address] [facility] [address] [place] [phone] Social History Tobacco Use Types Packs/Day Years [...] 11:58 EDT) Note to Patient The following [facility] pathology results CENTER have been interpreted [...] CENTER LABORATORY SERVICES Attestation There was significant [facility] Electr onically resident/fellow CENTER signed by Ab hever Raines involvement in the LABORATORY Hallie Orosco on diagnostic evaluation SERVICES 022 at 1043 of this case. By the signature below, the attending physician certifies that they have personally conducted a gross and/or microscopic examination of the described specimens and rendered or confirmed the above diagnosis. Clinical History Cholecystitis [facility] SERVICES Gross Description A. [facility] Received in formalin edy d with [...] or free-floating within the container. SERVICES Two correspondence representative sections and the en face cystic duct margin are submitted in A1. GIRISH GOMEZ(ASCP) 06/22/2021 7:58 Resident/Fellow: Chayo Chatman MD [facility] Performing Lab [facility] Scanned Images [facility] Specimen Tissue - Entire gallbladder (body struct ure) Performing Organization Address City/State/ZIP Code Phon e Number [facility] [address] [place] [address] SERVICES documented in this encounter Visit Diagnoses Diagnosis Acute cholecystitis documented in this encounter Care Teams Director Of Casino Marketing Relationship Specialty Start Date End Date Katia Stone PA-C PCP - General 05/02/[address] [place] [phone] documented as of this encounter
--- OUTSIDE RECORDS SUMMARY | 2021-12-14 01:05 | XMS_ITS | Encounter Summary ---
:1950 Author Organization [facility] Address [address] [place] [address] Care Team Providers Name Role Phone Katia Stone PA-C Primary Care Provider Encounter Details Date Type Department Care Team Description 08/25/2020 Results Only [facility] Rowan Abad NP [phone] [place] [phone] (Wo rk) Social History Tobacco Use [...] GRAM SMEAR - PMC SEE NOTES (A) [facility] Comment: CENTER LAB RESULT: Few Neutrophils Present No bacteria seen SWATI Few Usual skin jesi [facility] RESULTS/ORGANISM Comment: CENTER LAB ID - PMC Spec Description ?? Additional Information:: LEFT ARM Source:ARM Test [place] [address] Specimen Narrative [facility] - 08/27/2020 1 7:20 EDT ARM LEFT ARM Performing Organization Address City/State/ZIP Code Phon e Number [facility] [address] [place] [address] HERPES SIMPLEX VIRUS MOLECULAR DETECTION, PCR (08/25/2020 14:15 EDT) HERPES SIMPLEX Negative Negative [facility] I DNA - [facility]C [facility]ENTER LAB HERPES SIMPLEX Negative Negative [facility] 2 DNA - [facility] Comment: CENTER LAB SOURCE:: ARM Spec Description ?? Additional Information:: LEFT ARM Source:LEFT ARM Test performed or referred by The [address] [address] Specimen Narrative [facility] - 08/26/2020 1 9:39 EDT ARM LEFT ARM Performing Organization Address [facility] Phon e Number [facility] [address] [place] [address] (ABNORMAL) CREATININE WITH GFR - PMC (08/25/2020 6:09 EDT) Creatinine 0.60 (L) 0.70 - 1.30 [facility] mg/dl CENTER LAB Estimated GFR >60 >60 [facility] Comment: CENTER LAB EGFR UNITS: mL/min/1.73 m 2 CKD-EPI Equation used to calculate. Specimen Performing Organization Address [facility] Phon e Number [facility] [address] [place] [address] PLATELET COUNT (08/25/2020 6:09 EDT) Pathologist Sig nature PLATELET COUNT - [facility] 326 150 - 450 10 [facility] 3/uL [facility]ENTER LAB Specimen Narrative [facility] - 08/25/2020 7 :06 EDT Comment ENOXAPARIN MONITORING Performing Organization Address [facility] e Number [facility] [address] [place] [address] documented in this encounter Visit Diagnoses Not on filedocumented in this encounter Care Teams Tail Edger Relationship Specialty Start Date End Date Katia Stone PA-C PCP - General 05/02/17 [address] [place] [phone] documented as of this encounter
--- OUTSIDE RECORDS SUMMARY | 2021-12-14 01:05 | XMS_ITS | Encounter Summary ---
:1950 Author Organization [facility] Address [address] [place] [address] Care Team Providers Name Role Phone Katia Stone PA-C Primary Care Provider Encounter Details Date Type Department Care Team Description 09/05/2020 Results Only [facility] Rowan Abad NP [phone] [place] [phone] (Wo rk) Social History Tobacco Use [...] EDT) WBC 6.4 4.0 - 10.5 10 [facility] 3/uL CENTER LAB RBC 3.40 (L) 4.70 - 6.00 10 [facility] 6/[facility] Hemoglobin 11.6 (L) 13.5 - 18.0 g/dL [facility] HCT 33.9 (L) 42.0 - 52.0 % [facility] MCV 99.7 78 - [address] [facility] MCH 34.1 (H) 27 - [address] [facility] MCHC 34.2 32 - 37 g/dL [facility] RDW-CV - PMC 13.1 <14.7 % [facility] PLATELET COUNT - 253 150 - 450 10 3/uL [facility] MPV 10.9 9.2 - 12.[address] [facility] NEUTROPHILS % 57.6 % [facility] (AUTO) - [facility] CENTER LAB LYMPHOCYTES % 25.0 % [facility] (AUTO) [facility] MONOCYTES % (AUTO) 13.3 % [facility] EOSINOPHILS % 2.7 NOT ESTABLISHED % [facility] (AUTO) [facility] BASOPHILS % (AUTO) 1.1 % [facility] Immature 0.3 % [facility] Granulocyte % CENTER LAB (Auto) NUCLEATED RBC % 0.0 % [facility] (AUTO) - [facility] LAB NEUTROPHILS # 3.7 1.5 - 6.6 10 3/uL [facility] (AUTO) - [facility] LAB LYMPHOCYTES # 1.6 1.0 - 3.5 10 3/uL [facility] (AUTO) - [facility] LAB MONOCYTES # (AUTO) 0.9 <1.0 10 3/uL [facility] EOSINOPHILS # 0.2 <0.7 10 3/uL [facility] (AUTO) - [facility] BASOPHILS # (AUTO) 0.1 <0.1 10 3/uL [facility] Absolute Immature 0.02 <0.06 10 3/uL [facility] Granulocyte [facility] DIFFERENTIAL Auto Differential [facility] Specimen Performing Organization Address [facility] [address] [place] [address] MAGNESIUM (09/05/2020 14:30 EDT) Pathologist Sig nature Magnesium 1.8 1.8 - 2.4 mg/dl [facility] Specimen Performing Organization Address [facility] [address] [place] [address] (ABNORMAL) BASIC METABOLIC PANEL (BMP) (09/05/2020 14:30 EDT) Sodium 132 (L) 136 - 145 mEq/L [facility] Potassium 4.3 3.5 - 5.1 mEq/L [facility] Chloride 99 96 - 107 mEq/L [facility] CO2 Total 26.5 21 - 32 mEq/L [facility] Anion Gap 6.5 mEq/L [facility] BUN 12 7 - 25 mg/dl [facility] Creatinine 0.60 (L) 0.70 - 1.30 [facility] mg/dl [facility] [facility] Estimated GFR >60 >60 [facility] Comment: CENTER LAB EGFR UNITS: mL/min/1.73 m 2 CKD-EPI Equation used to calculate. Glucose 100 74 - 106 mg/dl [facility] Calcium 8.6 8.5 - 10.1 [facility] mg/dl [facility] [facility] Specimen Performing Organization Address [facility] [address] [place] [address] documented in this encounter Visit Diagnoses Not on filedocumented in this encounter Care Teams Director College Relationship Specialty Start Date End Date Katia Stone PA-C PCP - General 05/02/17 [address] [place] [phone] documented as of this encounter
--- OUTSIDE RECORDS SUMMARY | 2021-12-14 01:05 | XMS_ITS | Encounter Summary ---
:1950 Author Organization [facility] Address [address] [place] [address] Care Team Providers Name Role Phone Katia Stone PA-C Primary Care Provider Encounter Details Date Type Department Care Team Description 09/14/2020 Results Only [facility] Rowan Abad NP [phone] [place] [phone] (Wo rk) Social History Tobacco Use [...] PMC 94 (L) 150 - 450 10 [facility] 3/uL CENTER LAB Specimen Narrative [facility] - 09/14/2020 6 :16 EDT Comment ENOXAPARIN MONITORING Performing Organization Address City/[facility] Code Phon e Number [facility] [address] [place] [address] (ABNORMAL) CREATININE WITH GFR - PMC (09/14/2020 5:35 EDT) Creatinine 0.58 (L) 0.70 - 1.30 [facility] mg/dl CENTER LAB Estimated GFR >60 >60 [facility] Comment: CENTER LAB EGFR UNITS: mL/min/1.73 m 2 CKD-EPI Equation used to calculate. Specimen Performing Organization Address [facility] Phon e Number [facility] [address] [place] [address] documented in this encounter Visit Diagnoses Not on filedocumented in this encounter Care Teams Puppy Trainer Relationship Specialty Start Date End Date Katia Stone PA-C PCP - General 05/02/17 [address] [place] [phone] documented as of this encounter
--- OUTSIDE RECORDS SUMMARY | 2021-12-14 01:05 | XMS_ITS | Encounter Summary ---
:[address] [facility] Address [address] [place] [address] Care Team Providers Name Role Phone Katia Stone PA-C Primary Care Provider Encounter Details Date Type Department Care Team Description 08/25/2020 Lab Requisition [facility] Outr Resulting Lab, Pathology & Laboratory Provider [facility] [address] [place] [address] Social History Tobacco Use Types [...] nature Organism ID Few Usual skin jesi [facility] Smear Few Neutrophils [facility] Present (A) LABORATORY SERVICES Smear No bacteria seen (A) [facility] Specimen Swab - Entire upper limb (body structure ) Performing Organization Address City/State/ZIP Code Phon e Number [facility] [address] [place] [address] SERVICES documented in this encounter Visit Diagnoses Not on filedocumented in this encounter Care Teams Efficiency Analyst Relationship Specialty Start Date End Date Katia Stone PA-C PCP - General 05/02/[address] [place] [phone] documented as of this encounter
--- OUTSIDE RECORDS SUMMARY | 2021-12-14 01:06 | XMS_ITS | Encounter Summary ---
:1950 Author Organization [facility] Address [address] [place] [address] Care Team Providers Name Role Phone Katia Stone PA-C Primary Care Provider Reason for Visit Reason Onset Date Comments Pacemaker Problem 05/01/2020 Follow-up 05/03/2020 Encounter Details Date Type Department Care Team Description 05/01/2020 Telephone [facility] Tony Rosenberg er Problem; Cardiology - Chaitanya Jasmine MD Follow-up [address] [place], [place] [address] [facility] [address] [place] [address] Social History Tobacco Use Types [...] 0909 EST Caller states that pt and nurse outreach case manager do not understand what is going on with pt's care. From after-visit notes 04/12, it is clear to selling underwriter that provider intends for pt to see Dr. Browne at [place].Caller, nurse outreach case manager, and pt are unaware of a referral being sent to [facility], and seem to think thatprovider is still following care. Please call pt and nurse outreach case manager directly to let them know exactly what the plan of care is. elephone Encounter - Brenda Bocanegra - 05/01/2020 1409 EST Spoke with Nila. We don't have much device information here as the patient is managed by [facility]. They are wanting follow up from Dr. Rosenberg regarding the next steps for pt's device care. Told them I wouldsee what I can do to help. elephone Encounter - Haja Pavon - 05/01/2020 1304 EST Nila @ [facility] called to follow-up on pacemaker issues (problems with wires) and relay that the patient has felt a pounding around their pacemaker the last two nights. Please call. documented in this encounter Plan of Treatment Not on filedocumented as of this encounter Visit Diagnoses Not on filedocumented in this encounter Care Teams Crocheter Hand Relationship Specialty Start Date End Date Katia Stone PA-C PCP - General 05/02/[address] [place] [phone] documented as of this encounter
--- OUTSIDE RECORDS SUMMARY | 2021-12-14 01:06 | XMS_ITS | Encounter Summary ---
:1950 Author Organization [facility] Address [address] [place] [address] Care Team Providers Name Role Phone Katia Stone PA-C Primary Care Provider Reason for Visit Reason Onset Date Comments Appointment Related 06/19/2020 Encounter Details Date Type Department Care Team Description 06/19/2020 Telephone [facility] Cherie Browne MD Appointment Related Cardiothoracic Surgery - [address] [place] [address], [address], [address] [place], [place] [id number] [place] [address] [phone] (Wo rk) Social History Tobacco Use [...] - 06/19/2020 0858 EDT TC to Nila, Adult Parole Officer, at patient's PCP Office. She is aware that patient has a PAT appointment today between 4:00 and 4:45 pm with an Anesthesia Nurse. Patient is scheduled for surgery on 06/26 at 12:10 pm and should arrive in the Registration Department at 10:10 am. Adult Parole Officer states that patienthas a COVID test scheduled for 06/22 at [facility]. New telephone number noted for Adult Parole Officer is [phone]. documented in this encounter Plan of Treatment Not on filedocumented as of this encounter Visit Diagnoses Not on filedocumented in this encounter Care Teams Sash Maker Relationship Specialty Start Date End Date Katia Stone PA-C PCP - General 05/02/[address] [place] [phone] documented as of this encounter
--- OUTSIDE RECORDS SUMMARY | 2021-12-14 01:06 | XMS_ITS | Encounter Summary ---
:1950 Author Organization [facility] Address [address] [place] [address] Care Team Providers Name Role Phone Katia Stone PA-C Primary Care Provider Encounter Details Date Type Department Care Team Description 06/19/2020 Hospital Encounter [facility] Pre-Surgical Testing [address] [place], [place] [address] Social History Tobacco Use Types Packs/Day Years [...] hospital - to be organized by his upper caser Nila Villalobos. Pt refused to listen to instructions for surgery states I am waiting for the paper work that tells me what meds to take. This RN spokewith Cat Sutherland garbage pick up worker to discuss above. Cat to call pt tomorrow to confirm informationson medications as well as instructions otherwise. She will also contact correctional case records supervisor to confirm ride. documented in this encounter Plan of Treatment Not on filedocumented as of this encounter Visit Diagnoses Not on filedocumented in this encounter Care Teams Toxicologist Relationship Specialty Start Date End Date Katia Stone PA-C PCP - General 05/02/[address] [place] [phone] documented as of this encounter
--- OUTSIDE RECORDS SUMMARY | 2021-12-14 01:06 | XMS_ITS | Encounter Summary ---
:1950 Author Organization [facility] Address [address] [place] [address] Care Team Providers Name Role Phone Katia Stone PA-C Primary Care Provider Encounter Details Date Type Department Care Team Description 01/13/2020 Results Only [facility] - [address], Provider, [place] [facility] [address] [place], [place] [id number] Social History Tobacco Use Types Packs/Day Years [...] Sodium 120 (L) 136 - 145 mEq/L [facility] Specimen [facility] - 01/13/2020 2 2:26 EST Sample collected by ED but method of collection (IV Start or venipuncture) not indicated on sample. Performing Organization Address [facility] Code Phon e Number [facility] [address] [place] [address] TROPONIN I (01/13/2020 7:15 EST) Troponin I <0.050 0 - 0.056 [facility] (ng/mL) Comment: ng/ml [facility] Interpretation: [...] Standards H3-A5, page 21) Performing Organization Address [facility] Phon e [facility] [address] [place] [address] (ABNORMAL) SODIUM (01/13/2020 7:15 EST) Pathologist Sig nature Sodium 120 (L) 136 - 145 mEq/L [facility] Specimen [facility] [...] Standards H3-A5, page 21) Performing Organization Address [facility] e [facility] [address] [place] [address] OSMOLALITY,S PMC TEMP (01/13/2020 5:42 EST) Pathologist [facility] OSMOLALITY,S 280 275 - 295 [facility] Comment: mOsm/kg [facility] Test Performed by: [address] [address] Grocery Packer: Pierre Andersen M.D. Ph.D.; CLIA# [id number] Specimen Narrative [facility] - 01/14/2020 1 8:37 EST Sample collected by ED but method of collection (IV Start or venipuncture) not indicated on sample. Performing Organization Address [facility] Phon e Number [facility] [address] [place] [address] FOLATE (01/13/2020 5:42 EST) [facility] Folate 18.7 >8.6 ng/mL [facility] Specimen Performing Organization Address [facility] Phon e Number [facility] [address] [place] [address] VITAMIN B12 (01/13/2020 5:42 EST) [facility] Vitamin B12 246 193 - 986 [facility] Comment: pg/mL [facility] The results of this assay can be falsely elevated due to the consumption of Biotin. Specimen Performing Organization Address [facility] Phon e Number [facility] [address] [place] [address] (ABNORMAL) IRON,TIBC,FERRITIN GROUP - [facility] (01/13/2020 5:42 EST) [facility] nature Iron 178 (H) 65 - 175 mcg/dL [facility] Iron Binding 193 (L) 250 - 450 [facility] Capacity mcg/dL [facility] PERCENT IRON 92 (H) 14 - 50 % [facility] SATURATION - [facility] Ferritin >1000 (H) 26 - 388 ng/mL [facility] Specimen Performing Organization Address [facility] Phon e Number [facility] [address] [place] [address] PROTIME (01/13/2020 5:42 EST) [facility] Pro Time 11.1 9.0 - 12.3 [facility] SEC [facility]ENTER LAB PROTHROMBIN TIME 1.1 0.8 - 1.2 [facility] WITH INR - [facility] Comment: RATIO [facility] Interpretive Information: [...] not indicated on sample. Performing Organization Address [facility] [address] [place] [address] THYROID CASCADE (01/13/2020 5:42 EST) TSH 1.958 0.360 - 3.740 [facility] Comment: mIU/L [facility] Note: This is a Third Generation Assay .......................................... The results of this assay can be falsely decreased due to the consumption of Biotin. Specimen [facility] - 01/13/2020 6 :35 EST Sample collected by ED but method of collection (IV Start or venipuncture) not indicated on sample. Performing Organization Address [facility] [address] [place] [address] (ABNORMAL) MAGNESIUM (01/13/2020 5:42 EST) Pathologist Sig nature Magnesium 1.4 (L) 1.8 - 2.4 mg/dl [facility] Specimen [facility] - 01/13/2020 6 :35 EST Sample collected by ED but method of collection (IV Start or venipuncture) not indicated on sample. Performing Organization Address [facility] [address] [place] [address] (ABNORMAL) HEPATIC & CMP COMBO,FASTING - PMC (01/13/2020 5:42 EST) Sodium 121 (L) 136 - 145 [facility] mEq/L [facility] Potassium 4.1 3.5 - 5.1 [facility] mEq/L [facility] Chloride 87 (L) 96 - 107 [facility] mEq/L [facility] CO2 Total 25.5 21 - 32 mEq/L [facility] Anion Gap 8.5 mEq/L [facility] BUN 4 (L) 7 - 25 mg/dl [facility] Creatinine 0.60 (L) 0.70 - 1.30 [facility] mg/dl [facility] Estimated GFR >60 >60 [facility] Comment: [facility] EGFR UNITS: mL/min/1.73 m 2 CKD-EPI Equation used to calculate. Glucose 70 70 - 180 [facility] mg/dl [facility] Calcium 7.9 (L) 8.5 - 10.1 [facility] mg/dl [facility] CALCIUM,CORRECTED - 8.9 8.5 - 10.5 [facility] mg/dl [facility] BILIRUBIN - PMC 0.70 0.00 - 1.00 [facility] mg/dl [facility] AST 56 (H) 15 - 37 U/L [facility] ALT 38 16 - 63 U/L [facility] Alkaline Phosphatase 87 46 - 116 U/L [facility] Total Protein 6.8 6.4 - 8.2 [facility] g/dl [facility] Albumin 2.7 (L) 3.4 - 5.0 [facility] g/dl [facility] GLOBULIN - PMC 4.1 g/dl [facility] ALBUMIN/GLOBULIN 0.6 [facility] RATIO - PMC [facility] Specimen Narrative [facility] - 01/13/2020 6 :35 EST Sample collected by ED but method of collection (IV Start or venipuncture) not indicated on sample. Performing Organization Address City/State/ZIP Code Phon e Number [facility] [address] [place] [address] (ABNORMAL) COMPLETE BLOOD COUNT AND DIFFERENTIAL (01/13/2020 5:42 EST) Pathologist Sig nature WBC 5.2 4.0 - 10.5 10 [facility] 3/uL [facility] RBC 3.24 (L) 4.70 - 6.00 10 [facility] 6/uL [facility] Hemoglobin 11.3 (L) 13.5 - 18.0 [facility] g/dL [facility] HCT 30.8 (L) 42.0 - 52.0 % [facility] MCV 95.1 78 - 100 fL [facility] MCH 34.9 (H) 27 - 31 pg [facility] MCHC 36.7 (H) 32 - 36 g/dL [facility] RDW-CV - [facility] 12.5 11.0 - 14.8 % [facility] PLATELET COUNT - [facility] 161 150 - 450 10 [facility] 3/[facility] NEUTROPHILS % (AUTO) 52.1 42.0 - 75.0 % [facility] LYMPHOCYTES % (AUTO) 30.5 16.0 - 52.0 % [facility] MONOCYTES % (AUTO) - 13.8 (H) 1.0 - 11.0 % [facility] EOSINOPHILS % (AUTO) 1.7 0.0 - 7.0 % [facility] LAB BASOPHILS % (AUTO) - 1.3 0.0 - 4.0 % [facility] LAB NUCLEATED RBC % 0.0 <1 % [facility] (AUTO) [facility] LAB NEUTROPHILS # (AUTO) 2.7 1.5 - 6.6 10 [facility] 3/[facility] LAB LYMPHOCYTES # (AUTO) 1.6 1.0 - 3.[address] LAB MONOCYTES # (AUTO) - 0.7 <1.0 10 3/uL [facility] LAB EOSINOPHILS # (AUTO) 0.1 <0.7 10 3/uL [facility] LAB BASOPHILS # (AUTO) - 0.1 <0.1 10 3/uL [facility] LAB NUCLEATED RBC # 0.00 <1 10 3/uL [facility] (AUTO) [facility] Specimen Narrative [facility] - 01/13/2020 6 :48 EST Sample collected by ED but method of collection (IV Start or venipuncture) not indicated on sample. Performing Organization Address City/State/ZIP Code Phon e Number [facility] [address] [place] [address] OSMOLALITY, UR [facility] TEMP (01/13/2020 1:57 EST) Osmolality, Ur 239 150 - 1150 [facility] Comment: mOsm/kg [facility] Test Performed by: [facility] - [address] [address] Grocery Packer: Pierre Andersen M.D. Ph.D.; CLIA# [id number] Specimen Performing Organization Address City/[facility] Phon e Number [facility] [address] [place] [address] UA MICROSCOPIC - PMC (01/13/2020 1:57 EST) Pathologist Sig nature URINE RBC - PMC None Seen 0 - 2 hpf [facility] URINE WBC - PMC None seen 0 - 3 hpf [facility] URINE BACTERIA - PMC None Seen None Seen hpf [facility] URINE MUCUS - PMC None Seen lpf [facility] URINE SQUAMOUS None Seen None-Few hpf [facility] EPITHELIAL CELL - PMC [facility] Specimen Narrative [facility] - 01/13/2020 3 :07 EST Clean Catch Performing Organization Address [facility] [address] [place] [address] TROPONIN I (01/13/2020 1:57 EST) Troponin I <0.050 0 - 0.056 [facility] (ng/mL) Comment: ng/ml [facility] Interpretation: [...] consumption of Biotin. Specimen Performing Organization Address [facility] [address] [place] [address] (ABNORMAL) SODIUM (01/13/2020 1:57 EST) Pathologist Sig nature Sodium 118 (CRIT LOW) 136 - 145 mEq/L [facility] Comment: [facility] Results called and read back to me by: Location: ER Full name: LEV JOSHUA Credentials: RN at 0258 on 01/13/20 by TESS. Specimen Performing Organization Address [facility] e Number [facility] [address] [place] [address] (ABNORMAL) BNP - PMC (01/13/2020 1:57 EST) Pathologist Sig nature B-TYPE NATRIURETIC 549 (H) <100 pg/mL [facility] PEPTIDE - [facility] LAB Specimen Performing Organization Address [facility] e Number [facility] [address] [place] [address] (ABNORMAL) UA (CULTURE IF POSITIVE) - [facility] (01/13/2020 1:57 EST) URINE COLOR - [facility] Yellow Straw/Yelow [facility] URINE APPEARANCE - Clear Clr/Hazy [facility] URINE PH - [facility] 6.0 5.0 - 9.0 [facility] UR SPECIFIC GRAVITY 1.006 1.001 - 1.035 [facility] (REFRACTOM) - [facility] URINE PROTEIN - [facility] Negative Negative mg/dL [facility] URINE GLUCOSE (UA) - Negative Negative mg/dL [facility] URINE KETONES - [facility] Trace (A) Negative mg/dL [facility] URINE BILIRUBIN - Negative Negative [facility] URINE BLOOD - [facility] Trace (A) Negative [facility] URINE UROBILINOGEN - 0.2 0.2 - 1.0 [facility] E.U./dL [facility] URINE NITRATE - [facility] Negative Negative [facility] URINE LEUKOCYTE Negative Negative [facility] ESTERASE - [facility] URINE CULTURE CRITERIA NOT [facility] COMMENTS - [facility] METComment: [facility] Specimen does not meet criteria for culture. Specimen Narrative [facility] - 01/13/2020 3 :07 EST Clean Catch Performing Organization Address City/[facility]/ZIP Code Phon e Number [facility] [address] [place] [address] SODIUM, URINE RANDOM (01/13/2020 1:57 EST) Pathologist Sig nature Sodium, Urine 52 20 - 110 mEq/L [facility] Specimen Performing Organization Address City/[facility]/ZIP Code Phon e Number [facility] [address] [place] [address] documented in this encounter Visit Diagnoses Not on filedocumented in this encounter Care Teams Trailer Truck Driver Relationship Specialty Start Date End Date Katia Stone PA-C PCP - General 05/02/[address] [place] [phone] documented as of this encounter
--- OUTSIDE RECORDS SUMMARY | 2021-12-14 01:06 | XMS_ITS | Encounter Summary ---
:1950 Author Organization [facility] Address [address] [place] [address] Care Team Providers Name Role Phone Katia Stone PA-C Primary Care Provider Encounter Details Date Type Department Care Team Description 01/16/2020 Results Only [facility] - [address], Provider, [place] [facility] [address] [place], [place] [id number] Social History Tobacco Use Types Packs/Day Years [...] Sodium 129 (L) 136 - 145 mEq/L [facility] Potassium 3.8 3.5 - 5.1 mEq/L [facility] Chloride 95 (L) 96 - 107 mEq/L [facility] CO2 Total 27.5 21 - 32 mEq/L [facility] Anion Gap 7.5 mEq/L [facility] BUN 10 7 - 25 mg/dl [facility] Creatinine 0.64 (L) 0.70 - 1.30 [facility] mg/dl [facility] Estimated GFR >60 >60 [facility] Comment: [facility] EGFR UNITS: mL/min/1.73 m 2 CKD-EPI Equation used to calculate. Glucose 91 74 - 106 mg/dl [facility] Calcium 8.4 (L) 8.5 - 10.1 [facility] mg/dl [facility] Specimen Performing Organization Address City/State/ZIP Code Phon e Number [facility] [address] [place] [address] documented in this encounter Visit Diagnoses Not on filedocumented in this encounter Care Teams Bartender Server Relationship Specialty Start Date End Date Katia Stone PABijalC PCP - General 05/02/[address] [place] [phone] documented as of this encounter
--- OUTSIDE RECORDS SUMMARY | 2021-12-14 01:06 | XMS_ITS | Encounter Summary ---
:1950 Author Organization [facility] Address [address] [place] [address] Care Team Providers Name Role Phone Katia Stone PA-C Primary Care Provider Encounter Details Date Type Department Care Team Description 05/16/2020 Documentation Visit [facility] Ja Browne MD Infectious Disease - [address] [facility], [address], [address] [place], [place] [id number] [place] [phone] (Wo rk) Social History Tobacco Use Types [...] - 05/16/2020 0947 EDT Upon entering the [facility], patient answered yes to one of [...] patient sent to appointment. Kem Thomson RN, [id number] documented in this encounter Plan of Treatment Not on filedocumented as of this encounter Visit Diagnoses Not on filedocumented in this encounter Care Teams Liquor Establishment Manager Relationship Specialty Start Date End Date Katia Stone PA-C PCP - General 05/02/17 [address] [place] [phone] documented as of this encounter
--- OUTSIDE RECORDS SUMMARY | 2021-12-14 01:06 | XMS_ITS | Encounter Summary ---
:[address] [facility] Address [address] [place] [address] Care Team Providers Name Role Phone Katia Stone PA-C Primary Care Provider Encounter Details Date Type Department Care Team Description 01/14/2020 Results Only [facility] - [address], Provider, [place] [facility] [address] [place], [place] [id number] Social History Tobacco Use Types Packs/Day Years [...] EST) Pro Time 11.2 9.0 - 12.3 [facility] SEC [facility] PROTHROMBIN TIME 1.1 0.8 - 1.2 [facility] WITH INR - PMC [...] is prolonged for other reasons. Specimen Narrative [facility] - 01/14/2020 6 :37 EST [...] Phon e Number [facility] [address] [place] [address] (ABNORMAL) SODIUM (01/14/2020 2:07 EST) Pathologist Sig nature Sodium 121 (L) 136 - 145 mEq/L [facility] Specimen [facility] - 01/14/2020 2 :41 EST Sample collected from saline lock with discard per protocol by non-laboratory staff. Performing Organization Address City/State/ZIP Code Phon e Number [facility] [address] [place] [address] documented in this encounter Visit Diagnoses Not on filedocumented in this encounter Care Teams Brusher Hand Relationship Specialty Start Date End Date Katia Stone PA-C PCP - General 05/02/[address] [place] [phone] documented as of this encounter
--- OUTSIDE RECORDS SUMMARY | 2021-12-14 01:06 | XMS_ITS | Encounter Summary ---
:[address] [facility] Address [address] [place] [address] Care Team Providers Name Role Phone Katia Stone PA-C Primary Care Provider Reason for Visit Reason Onset Date Comments Coordination Of Care 04/19/2020 Returning Call 04/20/2020 Encounter Details Date Type Department Care Team Description 04/19/2020 Telephone [facility] Tony Rosenberg [facility], [place]; Cardiology - Chaitanya Jasmine MD Returning Call [address]anya [place], [place] Suite [facility] [id number] [place] [address] [place] [phone] Social History Tobacco Use Types Packs/Day [...] Ordoñez - 04/20/2020 1508 EST Patient's case supervisor returning call to Belinda. Please call. elephone Encounter - Belinda Falk RN - 04/20/2020 1457 EST Call placed to case supervisor regarding patient unable to reach by phone. Message left on voice mail to call office back with call back number [phone]. Telephone Encounter - Conner Mccall - 04/19/2020 1118 EST Reason for Call: Coordination Of Care Summary/Symptoms: Maru patients Lead Manufacturing Engineer reaching out to get more information on the appt Dr Rosenberg talked about for patient's pacemaker. Dr Rosenberg was going to have an appt for the patient with another cardio surgeon Maru states. Maru was going to call [facility] but stated they always ask Chaitanya. Please call back to discuss Conner Mccall 04/19/2020 11:19 documented in this encounter Plan of Treatment Not on filedocumented as of this encounter Visit Diagnoses Not on filedocumented in this encounter Care Teams Pharmacy Technologist Relationship Specialty Start Date End Date Katia Stone PA-C PCP - General 05/02/[address] [place] [phone] documented as of this encounter
--- OUTSIDE RECORDS SUMMARY | 2021-12-14 01:06 | XMS_ITS | Encounter Summary ---
:[address] [facility] Address [address] [place] [address] Care Team Providers Name Role Phone Katia [...] on filedocumented in this encounter Care Teams Candy Cutter Machine Relationship Specialty Start Date End Date Katia Stone PA-C PCP - General 05/02/[address] [place] [phone] documented as of this encounter
--- OUTSIDE RECORDS SUMMARY | 2021-12-14 01:06 | XMS_ITS | Encounter Summary ---
:1950 Author Organization [facility] Address [address] [place] [address] Care Team Providers Name Role Phone Katia Stone PA-C Primary Care Provider Reason for Visit Reason Onset Date Comments Labs Only 05/17/2020 Lab orders for pre-o p blood work Encounter Details Date Type Department Care Team Description 05/17/2020 Telephone [facility] Cherie Browne MD Labs Only (Lab Cardiothoracic Surgery - [address] [facility] [address] orders for pre-op [facility] blood work) [address] [facility], Level 5 [place], [place] [id number] [place] [address] [phone] (Wo rk) Social History Tobacco Use [...] note of 05/16. Explained again to [employer] Advisor. elephone Encounter - Melania Dumas - 05/17/2020 1044 EDT Nila (mechanical tech from [employer]) calling to find out if patient's lab orders were faxed to [place]. Per Nila, patient did not have his blood drawn while here at [facility] on 05/16/2020. Supervisor Engine Repair explained to caller that patients are usually unable to have pre-op blood bank done at any other facilitybut development writer will defer to CT Surgery RN. Nila requesting return call to [phone], extension: 7. documented in this encounter Plan of Treatment Not on filedocumented as of this encounter Visit Diagnoses Not on filedocumented in this encounter Care Teams Binder And Wrapper Packer Relationship Specialty Start Date End Date Katia Stone PA-C PCP - General 05/02/[address] [place] [phone] documented as of this encounter
--- OUTSIDE RECORDS SUMMARY | 2021-12-14 01:06 | XMS_ITS | Encounter Summary ---
:[address] [facility] Address [address] [place] [address] Care Team Providers Name Role Phone Katia Stone PA-C Primary Care Provider Encounter Details Date Type Department Care Team Description 08/20/2018 Historical Results [facility] - Giselle Stone, Only [facility] Lab [address] [place], [place] [phone] Social History Tobacco Use Types Packs/Day Years [...] 11:48 Results fo r this COMBO,FASTING - [facility] EDT procedur e are in the [...] [facility] Estimated GFR >60 >60 [facility] Comment: CENTER LAB EGFR UNITS: mL/min/1.73 m 2 CKD-EPI Equation used to calculate. Glucose 88 FASTIN-99 [facility] Calcium 8.6 8.5 - 10.5 [facility] CALCIUM,CORRECTED - 9.0 8.5 - 10.5 [facility] BILIRUBIN - [facility] 0.60 0.00 - 1.00 [facility] AST 41 (H) 15 - 37 [facility] ALT 47 12 - 78 [facility] Alkaline Phosphatase 86 46 - 116 [facility] Total Protein 7.5 6.4 - 8.2 [facility] Albumin 3.5 3.4 - 5.0 [facility] GLOBULIN - [facility] 4.0 [facility] ALBUMIN/GLOBULIN 0.8 [facility] RATIO - [facility] CENTER LAB Specimen Performing Organization Address City/State/ZIP Code Phon e Number [facility] [address] [place] [address] [facility] documented in this encounter Visit Diagnoses Not on filedocumented in this encounter Care Teams Water Manager Relationship Specialty Start Date End Date Katia Stone PA-C PCP - General 05/02/[address] [facility] [place] [facility] [place] [address] documented as of this encounter
--- OUTSIDE RECORDS SUMMARY | 2021-12-14 01:06 | XMS_ITS | Encounter Summary ---
:1950 Author Organization [facility] Address [address] [place] [address] Care Team Providers Name Role Phone Katia Stnoe PA-C Primary Care Provider Reason for Visit Reason Onset Date Comments Other 05/16/2020 EKG results Encounter Details Date Type Department Care Team Description 05/16/2020 Telephone [facility] Cat Sutherland RN Othe r (EKG results) Cardiothoracic Surgery - [address] [address] Social History Tobacco Use Types Packs/Day Years [...] Patient had an EKG in January 2020. [facility] to fax report to [phone]. EKG in [facility] from [facility]. I have routed our PA Salvador Roca to see if he wants to repeat on DOSA. documented in this encounter Plan of Treatment Not on filedocumented as of this encounter Visit Diagnoses Not on filedocumented in this encounter Care Teams Hostess Cashier Relationship Specialty Start Date End Date Katia Stone, MINGO PCP - General 05/02/17 [address] [place] [phone] documented as of this encounter
--- OUTSIDE RECORDS SUMMARY | 2021-12-14 01:06 | XMS_ITS | Encounter Summary ---
:1950 Author Organization [facility] Address [address] [place] [address] Care Team Providers Name Role Phone Katia Stone PA-C Primary Care Provider Reason for Visit Reason Onset Date Comments Other 06/07/[address] Mihir rama RN Other 06/08/2020 mailed pre-op instru ctions to patient Encounter Details Date Type Department Care Team Description 06/07/2020 Telephone [facility] Cherie Browne MD Other (questions for Cardiothoracic Surgery - [address] [facility] [address] Surgery RN); Other [facility] (mailed pre-op [address] [facility] [place], Level 5 instructions to [place], [place] [address] [place] [address] patient) [phone] (Wo rk) Social History Tobacco Use [...] EDT Pre-op instructions mailed to patient at: [address] [place] [phone] Address updated in [facility]. elephone Encounter - Cat Sutherland RN - 06/07/2020 1526 EDT Called and left message for Maru Villalobos RN at [place] PCP Instrument Repairer Helper to get correct address (mailing address) for patient and then have changed in Registration as he doesn't live in [place] anymore. She was going to call us [...] the Division of Cardiothoracic Surgery at the [facility]. We look forward to [...] located near the Main Entrance of the Computer Project Manager Center at the [facility] Main [place]. Prior to surgery, you will be scheduled for an anesthesia pre-screen telephone call with the Pre-Operative Department ??? Your telephone call has been scheduled for: To Be Announced between To Be Announced and To Be Announced ??? If you do not receive an appointment for the pre-screen call within two days of this appointment, please contact our office at [phone]. We have included a local lodging list [...] days prior to your surgery. Stop Saw [place] 14 days prior to surgery. ??? Acetaminophen [...] CHANGED, CALL OUR OFFICE RIGHT AWAY AT [phone]) ??? Continue to take all of your [...] clothing. ??? Do not wear any nail iranian, makeup, powder, lotion, deodorant or jewelry of [...] timely results. The Patient Access Center at [facility] will contact you with an appointment at [...] APPOINTMENT CONTACT THE PATIENT ACCESS CENTER AT [phone]. ??? While waiting for your surgery, you [...] the Surgeon's office on Level 5 [facility] Outpatient office. Note: If for some [...] listed below. The Division of Cardiothoracic Surgery [address] [place] [address] (Toll Free) MD Geovanni Toure MD Marek Polomsky, MD Chris Rokkas, MD /josh & ep 03/2020 elephone Encounter - Cat Sutherland RN - 06/07/[address] Surgery [place] Maru Villalobos winder hand at [facility] [phone] EXT [phone] states patient's son and and is not on Adv Directive now. Questions call Maru Villalobos. Pre-Op Instructions mailed to patient and faxed to Maru [phone]. She will review with the patient and I will as well. Check in time for surgery on 06/26 has not been confirmed yet per our [place] Roofer. 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 elephone Encounter - Melania Dumas - 06/07/2020 1013 EDT Maru from [place] calling with questions for CT Surgery RN. Requesting return call to [phone], extension 7. documented in this encounter Plan of Treatment Not on filedocumented as of this encounter Visit Diagnoses Diagnosis Encounter for preoperative screening lab oratory testing for COVID-19 virus - Primary documented in this encounter Care Teams Movie Extra Relationship Specialty Start Date End Date Katia Stone PA-C PCP - General 05/02/[address] [place] [phone] documented as of this encounter
--- OUTSIDE RECORDS SUMMARY | 2021-12-14 01:06 | XMS_ITS | Encounter Summary ---
:1950 Author Organization [facility] Address [address] [place] [address] Care Team Providers Name Role Phone Katia Stone PA-C Primary Care Provider Encounter Details Date Type Department Care Team Description 06/12/2018 Historical Results [facility] - Giselle Stone, Only [facility] [address] [place], [place] [phone] Social History Tobacco Use Types Packs/Day Years [...] EDT) Sodium 125 (L) 136 - 145 [facility] Potassium 5.0 3.5 - 5.1 [facility] Chloride 89 (L) 96 - 107 [facility] CO2 Total 28.7 21 - 32 [facility] Anion Gap 7.3 [facility] BUN 8 7 - 25 [facility] Creatinine 0.60 (L) 0.7 - 1.30 [facility] Estimated GFR >60 >60 [facility] Comment: CENTER LAB EGFR UNITS: mL/min/1.73 m 2 CKD-EPI Equation used to calculate. Glucose 84 70 - 180 [facility] Calcium 8.2 (L) 8.5 - 10.5 [facility] CALCIUM,CORRECTED - 8.7 8.5 - 10.5 [facility] BILIRUBIN - [facility] 0.30 0.00 - 1.00 [facility] AST 39 (H) 15 - 37 [facility] ALT 52 12 - 78 [facility] Alkaline Phosphatase 93 46 - 116 [facility] Total Protein 7.1 6.4 - 8.2 [facility] Albumin 3.4 3.4 - 5.0 [facility] GLOBULIN - PMC 3.7 [facility] ALBUMIN/GLOBULIN 0.9 [facility] RATIO - [facility] CENTER LAB Specimen Performing Organization Address City/State/ZIP Code Phon e Number [facility] [address] [place] [address] [facility] documented in this encounter Visit Diagnoses Not on filedocumented in this encounter Care Teams Preservationist Relationship Specialty Start Date End Date Katia Stone PA-C PCP - General 05/02/[address] [facility] [place] [place] [phone] documented as of this encounter
--- OUTSIDE RECORDS SUMMARY | 2021-12-14 01:06 | XMS_ITS | Encounter Summary ---
:1950 Author Organization [facility] Address [address] [place] [address] Care Team Providers Name Role Phone Katia Stone PA-C Primary Care Provider Encounter Details Date Type Department Care Team Description 01/12/2020 Results Only [facility] - Angelic Olguin MD [facility] [address] [place] [phone] (Wo rk) Social History Tobacco Use [...] CAPILLARY 102 (H) 70 - 100 mg/dL [facility] GLUCOSE - [facility] CENTER LAB Specimen Performing Organization Address City/[facility]/ZIP Code Phon e Number [facility] [address] [place] [address] (ABNORMAL) ETHYL ALCOHOL LEVEL - [facility] (01/12/2020 22:30 EST) ETHYL ALCOHOL 237.0 (CRIT HIGH) <10 mg/dL [facility] - [facility] Comment: CENTER LAB Results called and read back to me by: Location: ED Full name: FERMIN FAROOQ Credentials: RN at 2346 on 01/12/20 by TESS. Medical Serum/Plasma Alcohol test reported in mg/dL. Example of unit conversion from mg/dL to percentage: ?80 mg/dL is equivalent to 0.08 % Specimen Narrative [facility] - 01/12/2020 2 3:47 EST Sample collected at time of saline lock or IV placement. Performing Organization Address City/[facility]/ZIP Code Phon e Number [facility] [address] [place] [address] TROPONIN I (01/12/2020 22:30 EST) Troponin I <0.050 0 - 0.056 [facility] (ng/mL) Comment: ng/ml CENTER LAB [...] to the consumption of Biotin. Specimen Narrative [facility] - 01/12/2020 2 3:47 EST Sample collected at time of saline lock or IV placement. Performing Organization Address [facility] [place]/[facility] e [facility] LAB [address] [place] [address] (ABNORMAL) BASIC METABOLIC PANEL,RANDOM - [facility] (01/12/2020 22:30 EST) Sodium 116 (CRIT LOW) 136 - 145 mEq/L [facility] Comment: [facility] Results called and read back to me by: Location: ED Full name: DEBBIE MORRISRELL Credentials: RN at 2332 on 01/12/20 by TESS. Potassium 4.3 3.5 - 5.1 mEq/L [facility] Chloride 83 (L) 96 - 107 mEq/L [facility] CO2 Total 24.6 21 - 32 mEq/L [facility] Anion Gap 10.4 mEq/L [facility] BUN 5 (L) 7 - 25 mg/dl [facility] Creatinine 0.62 (L) 0.70 - 1.30 [facility] mg/dl [facility] Estimated GFR >60 >60 [facility] Comment: CENTER LAB EGFR UNITS: mL/min/1.73 m 2 CKD-EPI Equation used to calculate. Glucose 89 70 - 180 mg/dl [facility] Calcium 8.2 (L) 8.5 - 10.1 [facility] mg/dl [facility]ENTER LAB Specimen Narrative [facility] - 01/12/2020 2 3:47 EST Sample collected at time of saline lock or IV placement. Performing Organization Address [facility] [place]/[facility] e [facility] LAB [address] [place] [address] (ABNORMAL) HEPATIC FUNCTION PANEL (ALB,ALK PHOS,ALT,AST,DBIL,TOT BOSSMAN,TOT PROT) (01/12/2020 22:30 EST) Pathologist Sig nature BILIRUBIN - [facility] 0.60 0.00 - 1.00 [facility] mg/dl [facility]ENTER [facility] DIRECT BILIRUBIN - [facility] 0.20 0.00 - 0.30 [facility] mg/dl [facility] INDIRECT BILIRUBIN - 0.40 0.00 - 0.80 [facility] mg/dl [facility] AST 74 (H) 15 - 37 U/L [facility] ALT 44 16 - 63 U/L [facility] Alkaline Phosphatase 103 46 - 116 U/L [facility] Total Protein 8.1 6.4 - 8.2 g/dl [facility] Albumin 3.3 (L) 3.4 - 5.0 g/dl [facility] GLOBULIN - [facility] 4.8 g/dl [facility] ALBUMIN/GLOBULIN RATIO 0.6 [facility] Specimen Narrative [facility] - 01/12/2020 2 3:47 EST Sample collected at time of saline lock or IV placement. Performing Organization Address City/State/ZIP Code Phon e Number [facility] [address] [place] [address] (ABNORMAL) COMPLETE BLOOD COUNT AND DIFFERENTIAL (01/12/2020 22:30 EST) Pathologist Sig nature WBC 5.5 4.0 - 10.[address] LAB RBC 3.69 (L) 4.70 - 6.00 10 [facility] 6/[facility] LAB Hemoglobin 12.8 (L) 13.5 - 18.0 [facility] g/dL [facility] HCT 35.3 (L) 42.0 - 52.0 % [facility] MCV 95.7 78 - 100 fL [facility] LAB MCH 34.7 (H) 27 - 31 pg [facility] MCHC 36.3 (H) 32 - 36 g/dL [facility] RDW-CV - [facility] 12.6 11.0 - 14.8 % [facility] PLATELET COUNT - [facility] 182 150 - [address] LAB NEUTROPHILS % (AUTO) 54.5 42.0 - 75.0 % [facility] LYMPHOCYTES % (AUTO) 29.0 16.0 - 52.0 % [facility] MONOCYTES % (AUTO) - 12.6 (H) 1.0 - 11.0 % [facility] LAB EOSINOPHILS % (AUTO) 2.4 0.0 - 7.0 % [facility] BASOPHILS % (AUTO) - 1.1 0.0 - 4.0 % [facility] NUCLEATED RBC % 0.0 <1 % [facility] (AUTO) [facility] NEUTROPHILS # (AUTO) 3.0 1.5 - 6.6 10 [facility] 3/uL [facility]ENTER LAB LYMPHOCYTES # (AUTO) 1.6 1.0 - 3.5 10 [facility] 3/uL [facility] MONOCYTES # (AUTO) - 0.7 <1.0 10 3/uL [facility] EOSINOPHILS # (AUTO) 0.1 <0.7 10 3/uL [facility] BASOPHILS # (AUTO) - 0.1 <0.1 10 3/uL [facility] NUCLEATED RBC # 0.00 <1 10 3/uL [facility] (AUTO) [facility] LAB Specimen Narrative [facility] - 01/12/2020 2 3:35 EST Sample collected at time of saline lock or IV placement. Performing Organization Address City/State/ZIP Code Phon e Number [facility] [address] [place] [address] documented in this encounter Visit Diagnoses Not on filedocumented in this encounter Care Teams Fire Manager Relationship Specialty Start Date End Date Katia Stone, BELLAC PCP - General 05/02/[address] [place], [place] [phone] documented as of this encounter
--- OUTSIDE RECORDS SUMMARY | 2021-12-14 01:06 | XMS_ITS | Encounter Summary ---
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, initial encounter José Miguel Roca PA-C Procedures XR CHEST 2 VIEWS [address] [phone] Referral ID Status Reason Start Expiration Visits Visits Date Date Requested Authorized [id number] Authorization Not 05/16/2020 1 1 Required Reason for Visit Radiology Services (Routine) - Authorization Not Required Specialty Diagnoses / Procedures Referred By Contact Refer red To Contact Diagnoses 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, initial encounter José Miguel Roca PA-C Procedures XR CHEST 2 VIEWS [address] [phone] Referral ID Status Reason Start Expiration Visits Visits Date Date Requested Authorized [id number] Authorization Not 05/16/2020 1 1 Required Encounter Details Date Type Department Care Team Description 05/16/2020 Hospital Encounter Medical Center Displac ement of Radiology Xray electrode fer cruz of Outpatient - [facility] cardiac [facility] initial encounter [address] [place] [address] Social History Tobacco Use Types Packs/Day Years [...] Region Laterality Modality Computed Radiography Specimen Impressions [facility] - 05/16/2020 11:56 EDT 1. ??No significant change from prior. I have personally reviewed the images an d the above interpretation and agree with the findings. Narrative [facility] - 05/16/2020 11:56 [...] Organization Address City/State/ZIP Code Phon e Number [facility] documented in this encounter Visit Diagnoses Diagnosis Displacement of electrode lead of cardia c pacemaker, initial encounter documented in this encounter Care Teams Clinical Research Coordinator Relationship Specialty Start Date End Date Katia Stone, BELLAC PCP - General 05/02/17 [address] [place] [phone] documented as of this encounter
--- OUTSIDE RECORDS SUMMARY | 2021-12-14 01:06 | XMS_ITS | Encounter Summary ---
:[address] [facility] Address [address] [place] [address] Care Team Providers Name Role Phone Katia Stone PA-C Primary Care Provider Encounter Details Date Type Department Care Team Description 01/17/2020 Results Only [facility]- Jayesh Baldwin, [address] [place] [phone] (Wo rk) Social History Tobacco Use [...] Pathologist Sig nature Cortisol, S SEE COMMENTS [facility] Comment: CENTER LAB Test ?Result ?Flag ??Unit ?RefValue ------ Cortisol, S ??AM Result ? 11 ?mcg/dL ??7-25 Test Performed by: [facility] [address] [place] [address] Lap Checker: Pierre Andersen M.D. Ph.D.; IA# [id number] Specimen Performing Organization Address City/State/ZIP Code Phon e Number [facility] [address] [place] [address] (ABNORMAL) BASIC METABOLIC PANEL,RANDOM - [facility] (01/17/2020 [...] LAB Creatinine 0.62 (L) 0.70 - 1.30 [facility] mg/dl [facility]ENTER LAB Estimated GFR >60 >60 [facility] Comment: CENTER [facility] EGFR UNITS: mL/min/1.73 m 2 CKD-EPI Equation used to calculate. Glucose 91 70 - 180 mg/dl [facility] Calcium 8.4 (L) 8.5 - 10.1 [facility] mg/dl [facility] Specimen Performing Organization Address City/State/ZIP Code Phon e Number [facility] [address] [place] [address] documented in this encounter Visit Diagnoses Not on filedocumented in this encounter Care Teams Director Of Capital Giving Relationship Specialty Start Date End Date Katia Stone PA-C PCP - General 05/02/[address] [place] [phone] documented as of this encounter
--- OUTSIDE RECORDS SUMMARY | 2021-12-14 01:06 | XMS_ITS | Encounter Summary ---
:1950 Author Organization [facility] Address [address] [place] [address] Care Team Providers Name Role Phone Katia Stone PA-C Primary Care Provider Reason for Visit Reason Onset Date Comments Other 06/13/2020 Encounter Details Date Type Department Care Team Description 06/13/2020 Telephone [facility] Cat Sutherland RN Other Surgery - [facility] s [address] [place], [place] [id number] Social History Tobacco Use Types Packs/Day Years [...] for surgery at 1210 on 06/26. His Livestock Farm Workers with PCP is setting up his ride for [place] on 06/26 and for his COVID test that will need to be done 3-4 days prior to surgery. Patient verbalized understanding. I called the patient's Livestock Farm Workers at [facility] at [phone] and left her a message (Maru Villalobos, TISH). She will be arranging his ride to [place] on [place] and for his COVID test. I have updated our MANGLE FEEDER and Beulah FAIR CM at [facility] as well. documented in this encounter Plan of Treatment Not on filedocumented as of this encounter Visit Diagnoses Not on filedocumented in this encounter Care Teams Crystal Lapper Relationship Specialty Start Date End Date Katia Stone, BELLAC PCP - General 05/02/17 [address] [place] [phone] documented as of this encounter
--- OUTSIDE RECORDS SUMMARY | 2021-12-14 01:06 | XMS_ITS | Encounter Summary ---
:1950 Author Organization [facility] Address [address] [place] [address] Care Team Providers Name Role Phone Katia [...] on filedocumented in this encounter Care Teams Sap Plant Maintenance Consultant Relationship Specialty Start Date End Date Katia Stone PA-C PCP - General 05/02/[address] [place] [phone] documented as of this encounter
--- OUTSIDE RECORDS SUMMARY | 2021-12-14 01:06 | XMS_ITS | Encounter Summary ---
:1950 Author Organization [facility] Address [address] [place] [address] Care Team Providers Name Role Phone Katia Stone PA-C Primary Care Provider Encounter Details Date Type Department Care Team Description 01/15/2020 Results Only [facility] - [address], Provider, [facility] [address] [place], [place] [phone] Social History Tobacco Use Types Packs/Day Years [...] Sodium 124 (L) 136 - 145 mEq/L [facility] Specimen Performing Organization Address City/State/ZIP Code Phon e Number [facility] [address] [place] [address] documented in this encounter Visit Diagnoses Not on filedocumented in this encounter Care Teams Human Relations Manager Relationship Specialty Start Date End Date Katia Stone PA-C PCP - General 05/02/[address] [place] [phone] documented as of this encounter
--- OUTSIDE RECORDS SUMMARY | 2021-12-14 01:06 | XMS_ITS | Encounter Summary ---
:1950 Author Organization [facility] Address [address] [place] [address] Care Team Providers Name Role Phone Katia Stone PA-C Primary Care Provider Encounter Details Date Type Department Care Team Description 07/19/2018 Historical Results [facility] - Vick Limon, [facility] [address] [place] [phone] Social History Tobacco Use Types Packs/Day [...] Sig nature WBC 8.1 4.0 - 10.5 [facility] RBC 3.65 (L) 4.70 - 6.00 [facility] Hemoglobin 12.5 (L) 13.5 - 18.0 [facility] HCT 34.2 (L) 42.0 - 52.0 [facility] MCV 93.7 78 - 100 [facility] MCH 34.2 (H) 27 - 31 [facility] MCHC 36.5 (H) 32 - 36 [facility] RDW-CV - [facility] 12.4 11.5 - 14.0 [facility] PLATELET COUNT - [facility] 158 150 - 450 [facility] NEUTROPHILS % (AUTO) - 63.5 42.0 [...] LAB NUCLEATED RBC % (AUTO) 0.0 <1 [facility] NEUTROPHILS # (AUTO) - 5.2 1.5 - 6.6 [facility] LYMPHOCYTES # (AUTO) - 1.8 1.0 - 3.5 [facility] MONOCYTES # (AUTO) - 0.8 <1.0 [facility] EOSINOPHILS # (AUTO) - 0.2 <0.7 [facility] BASOPHILS # (AUTO) - 0.1 <0.1 [facility] NUCLEATED RBC # (AUTO) 0.00 <1 [facility] Specimen Performing Organization Address [facility] Code Phon e Number [facility] [address] [place] [address] [facility] (ABNORMAL) BASIC METABOLIC PANEL,RANDOM - [facility] (07/19/2018 18:30 EDT) Pathologist [facility] nature Sodium 120 (L) 136 - 145 [facility] Potassium 4.4 3.5 - 5.1 [facility] Chloride 83 (L) 96 - 107 [facility] CO2 Total 24.6 21 - 32 [facility] Anion Gap 13.4 [facility] BUN 8 7 - 25 [facility] Creatinine 0.67 (L) 0.7 - 1.30 [facility] Estimated GFR >60 >[address] [facility] Comment: CENTER LAB EGFR UNITS: mL/min/1.73 m 2 CKD-EPI Equation used to calculate. Glucose 78 70 - 180 [facility] Calcium 8.2 (L) 8.5 - 10.5 [facility] Specimen Performing Organization Address [facility] Code Phon e Number [facility] [address] [place] [address] [facility] POCT GLUCOSE (NURSING) - [facility] (07/19/2018 18:21 EDT) [facility] POC CAPILLARY GLUCOSE - 86 70 - 100 [facility] Specimen Performing Organization Address [facility] Phon e Number [facility] [address] [place] [address] [facility] documented in this encounter Visit Diagnoses Not on filedocumented in this encounter Care Teams Court Messenger Relationship Specialty Start Date End Date Katia Stone PA-C PCP - General 05/02/[address] [place] [phone] documented as of this encounter
--- OUTSIDE RECORDS SUMMARY | 2021-12-14 01:06 | XMS_ITS | Encounter Summary ---
:1950 Author Organization [facility] Address [address] [place] [address] Care Team Providers Name Role Phone Katia Stone PA-C Primary Care Provider Reason for Visit Reason Onset Date Comments Appointment Related 06/16/2020 Encounter Details Date Type Department Care Team Description 06/16/2020 Telephone [facility] Ghazala Sutherland RN Appo intment Related Cardiothoracic Surgery - [address] [address] Social History Tobacco Use Types Packs/Day Years [...] Encounter - Ghazala Sutherland RN - 06/16/[address] Surgery Update Message left for pt that the Pre-Op Center will call him on Monday 06/19 between 4 - 4:45 PM. I also left him a message to be sure and connect with his After School Tutor at PCP office to get his COVID test 3-4 days prior to surgery. Surgery is on 06/26. GHAZALA SUTHERLAND RN documented in this encounter Plan of Treatment Not on filedocumented as of this encounter Visit Diagnoses Not on filedocumented in this encounter Care Teams Maintenance And Operations Supervisor Relationship Specialty Start Date End Date Katia Stone, PA-C PCP - General 05/02/17 [address] [place] [phone] documented as of this encounter
--- OUTSIDE RECORDS SUMMARY | 2021-12-14 01:06 | XMS_ITS | Encounter Summary ---
:1950 Author Organization [facility] Address [address] [place] [address] Care Team Providers Name Role Phone Katia Stone PA-C Primary Care Provider Encounter Details Date Type Department Care Team Description 12/12/[address] [facility] - Candelaria Vila MD Imaging [facility] 111 [facility] Radiology Results [facility], [address], Level 1 [place], [place] [address] [place] [address] [phone] (Wo rk) Social History Tobacco Use [...] 2 VIEWS (12/12/2018 22:15 EDT) Specimen Narrative [facility] - 2018 22:15 EDT ?[facility]: [facility] ?[address] ?[place] [address] ?Diagnostic Imaging Report ? Signed ? Patient Name:DAVID FARFAN ? Date of :1950 ?MR Number:[id number] ? Age:68 ?Sex:M ? Category: CR ?Date [...] regarding this report , please contact the [facility] at [phone] ? Dictated by: Alma Sherwood DO ?D/ ?? 2215 ?? Transcribed by: GABE ?D/T: ? E-Signed by: Alma Sherwood DO ?D/ ?? 2327 ? Procedure Note Alma Sherwood MD - 2018 [facility]: [address] [id number] Diagnostic Imaging Report Signed Patient Name:DAVID FARFAN r:[id number] Date of :1950 MR Number:[id number] Age:68 Sex:M Category: CR Date of Exam:12/12/18 [...] regarding this report , please contact the [facility] at [phone] Dictated by: Alma Sherwood DO D/T: 2215 Transcribed by: GABE Barriga/T: E-Signed by: Alma Sherwood/T: 6828 Performing Organization Address City/State/ZIP Code Phon e Number [facility] documented in this encounter Visit Diagnoses Not on filedocumented in this encounter Care Teams Restaurant Cook Relationship Specialty Start Date End Date Katia Stone PA-C PCP - General 05/02/[address] [place] [phone] documented as of this encounter
--- OUTSIDE RECORDS SUMMARY | 2021-12-14 01:06 | XMS_ITS | Encounter Summary ---
:1950 Author Organization [facility] system Address [address] [place] [address] Care Team Providers Name Role Phone Katia Stone PA-C Primary Care Provider Reason for Referral Radiology Services (Routine) - Authorization Not Required Specialty Diagnoses / Procedures Referred By Contact Refer red To Contact Diagnoses 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, initial encounter José Miguel Roca PA-C Procedures XR CHEST 2 VIEWS [address] [phone] Referral ID Status Reason Start Expiration Visits Visits Date Date Requested Authorized [id number] Authorization Not 05/16/2020 1 1 Required Reason [...] Tony Rosenberg Marek, MD [place], MD 111 [facility] [address] [phone] Fax: Referral ID Status Reason Start Expiration Visits Visits Date Date Requested Authorized [id number] Authorization Not 1 1 Required Encounter Details Date Type Department Care Team Description 05/16/2020 Office Visit [facility] Ja Browne Displ acement of Cardiothoracic Surgery electrode lead of - [facility] 111 [facility] cardiac pacemaker, 111 [facility] [place] [address] Pavilion, Level 5 (Primary Dx) [phone] [place] [phone] Social History Tobacco Use Types Packs/Day Years [...] located near the Main Entrance of the Continuous Washer Operator Center at the [facility]. Due to COVID, there is no [...] of this appointmentplease contact our office at [phone]. We have included a local lodging list should you or your family require accommodations around the time of your surgery. Discounts may apply for family members of patients being hospitalized, please askthe hotel when booking. If you have cancer, you and your family member are eligible to stay at the [employer] [place]. The Oncology Patient Navigator can be reached at [phone] for assistance with this. You should receive [...] days prior to your surgery. Stop Saw [place] 14 days prior to surgery. ??? Acetaminophen [...] IF THIS CHANGES, CALL OUR OFFICE AT [phone]. Continue to take all of your other [...] helpful. ??? Do not wear any nail russian, makeup, powder, lotion, deodorant or jewelry of [...] them with an appointment contact them at [phone] as the test MUST BE DONE 72 [...] to the Surgeon's office on Level 5 [facility] Surgery Outpatient office. Note: If for some [...] listed below. The Division of Cardiothoracic Surgery [address] [place] [address] (Toll Free) MD Geovanni Toure MD Marek [...] file Gets together: Not on file Attends yarsani service: Not on file Active member of [...] Thank you. Ja Browne MD Cardiothoracic Surgery [phone] (office) 05/16/2020 10:36 documented in this encounter Miscellaneous Notes Addendum Note - Ja Browne MD - 05/16/2020 0930 EDT Addended by: JA BROWNE on: 06/06/2020 11:27 Modules accepted: Orders documented in this encounter Plan of Treatment Not on filedocumented as of this encounter Results XR CHEST 2 VIEWS (05/16/2020 11:17 EDT) Anatomical Region Laterality Modality Computed Radiography Specimen Impressions [facility] - 05/16/2020 11:56 EDT 1. ??No significant change from prior. I have personally reviewed the images an d the above interpretation and agree with the findings. Narrative [facility] - 05/16/2020 11:56 [...] Organization Address City/State/ZIP Code Phon e Number [facility] documented in this [...] daily. added in this encounter Care Teams Senior Bookkeeper Relationship Specialty Start Date End Date Katia Stone PA-C PCP - General 05/02/17 [address] [place] [phone] documented as of this encounter
--- OUTSIDE RECORDS SUMMARY | 2021-12-14 01:06 | XMS_ITS | Encounter Summary ---
:1950 Author Organization [facility] Address [address] [place] [address] Care Team Providers Name Role Phone Katia Stone PA-C Primary Care Provider Reason for Visit Reason Comments Pacemaker Problem Encounter Details Date Type Department Care Team Description 04/12/2020 [facility] Tony Rosenberg Heart b [facility] Cardiology - Nicolasa Jasmine MD degree ([facility]) [address] (Primary Dx) [place] [address] [address] [place] [address] Social History Tobacco Use Types [...] Rosenberg MD - 04/12/2020 1216 EST [facility] - [place] PROGRESS / FOLLOWUP NOTE - 04/12/2020 PROBLEM LIST 1. Third-degree heart block, status post dual chamber pacemaker insertion, complicated by pericardial effusion and need for 12-lead repositioning. 2. Hyponatremia. 3. RA lead failure. SUBJECTIVE: Mr Mera returns to the clinic at [facility] to discuss the issuessurrounding his pacemaker. [...] has had 2 recent hospitalizations, one at [facility] and the other at for treatment of hyponatremia. PHYSICAL EXAMINATION: Mr [...] Tony Rosenberg MD / CD Dictation ID: [id number] cc: documented in this encounter Plan of Treatment Not on filedocumented as of this encounter Visit Diagnoses Diagnosis Heart block AV third degree (HCC-CMS) (H CC) - Primary Atrioventricular block, complete documented in this encounter Care Teams Tax Examiner Relationship Specialty Start Date End Date Katia Stone PA-C PCP - General 05/02/17 [address] [place] [phone] documented as of this encounter
--- OUTSIDE RECORDS SUMMARY | 2021-12-14 01:06 | XMS_ITS | Encounter Summary ---
:1950 Author Organization [facility] Address [address] [place] [address] Care Team Providers Name Role Phone Katia Stone PA-C Primary Care Provider Reason for Visit Reason Comments Arrhythmia Encounter Details Date Type Department Care Team Description 10/13/2019 [facility] Cardiology - Nicolasa Jasmine MD degree ([facility]) [address] (Primary Dx) [place] [address] Suite [facility] [phone] [place] [address] Social History Tobacco Use Types [...] file Gets together: Not on file Attends confucianism service: Not on file Active member of [...] complete documented in this encounter Care Teams Resident Services Manager Relationship Specialty Start Date End Date Katia Stone PA-C PCP - General 05/02/17 [address] [place] [phone] documented as of this encounter
--- OUTSIDE RECORDS SUMMARY | 2021-12-14 01:06 | XMS_ITS | Encounter Summary ---
:1950 Author Organization [facility] Address [address] [place] [address] Care Team Providers Name Role Phone Katia Stone PA-C Primary Care Provider Reason for Visit Reason Onset Date Comments Follow-up 12/23/2019 TE 11/02 Encounter Details Date Type Department Care Team Description 12/23/2019 Telephone [facility] Tony Rosenberg Follow- up (TE 11/02) Cardiology - Chaitanya Jasmine MD [address] [place] [address] [place] [address] (Wo rk) Social History Tobacco [...] on filedocumented in this encounter Care Teams Apartment Maintenance Technician Relationship Specialty Start Date End Date Katia Stone PA-C PCP - General 05/02/17 [address] [place] [phone] documented as of this encounter
--- OUTSIDE RECORDS SUMMARY | 2021-12-14 01:06 | XMS_ITS | Encounter Summary ---
:1950 Author Organization [facility] Address [address] [place] [address] Care Team Providers Name Role Phone Katia Stone PA-C Primary Care Provider Encounter Details Date Type Department Care Team Description 06/25/2018 Historical Results [facility] - Maicol Crespo MD Only [facility] 160 [facility],1ST FLOOR [address] [place], [place] [address] [place] [address] [phone] Social History Tobacco Use Types Packs/Day Years [...] procedure are i n the results section. ROMANSH PLANTAIN, Routine 06/25/2018 18:50 Result s for [...] (06/25/2018 18:50 EDT) CRISTO WELCH, IGE <0.35 [facility] - PMC Comment: CENTER LAB Class 0 (Negative <0.35) Test Performed by: [address] [address] Specimen Performing Organization Address City/[facility] Phon e Number [facility] [address] [place] [phone] [place] [address] LAB ROMANSH PLANTNICO, IGE - [facility] (06/25/2018 18:50 EDT) ROMANSH PEDROAIN, <0.35 [facility] Comment: CENTER LAB Class 0 (Negative <0.35) Test Performed by: [address] [address] Specimen Performing Organization Address City/[facility] Phon e Number [facility] [address] [place] [phone] [place] [address] LAB HOUSE DUST MITES/D.P., IGE - [facility] (06/25/2018 18:50 EDT) HOUSE DUST <0.35 [facility] MITES/D.P., IGE - Comment: CENTER LAB [facility]C Class 0 (Negative <0.35) Test Performed by: [address] [address] Specimen Performing Organization Address [facility] Phon e Number [facility] [address] [place] [address] [place] [address] [facility] - [facility] (06/25/2018 18:50 EDT) ALTERNARIA TENUIS, <0.35Comment: Class [facility] IGE - [facility] 0 (Negative <0.35) [facility] CLAD - [facility]C <0.35Comment: Class [facility] 0 (Negative <0.35) [facility] HOUSE DUST <0.35 [facility] MITE/D.F., IGE Comment: [facility] Class 0 (Negative <0.35) Test Performed by: [facility] - [facility] [address] [place] [address] CAT - PMC <0.35Comment: Class [facility] 0 (Negative <0.35) [facility] DOG DANDER, IGE - <0.35Comment: Class [facility] 0 (Negative <0.35) [facility] YAYA GRASS IGE - <0.35Comment: Class [facility] 0 (Negative <0.35) [facility] LAMBS QUARTER, IGE <0.35Comment: Class [facility] - [facility] 0 (Negative <0.35) [facility] OAK - PMC <0.35Comment: Class [facility] 0 (Negative <0.35) [facility] RAGWEED, SHORT, IGE <0.35Comment: Class [facility] - [facility] 0 (Negative <0.35) [facility] CONNER GRASS, IGE <0.35Comment: Class [facility] - [facility] 0 (Negative <0.35) [facility] Specimen Performing Organization Address City/State/ZIP Code Phon e Number [facility] [address] LAB (ABNORMAL) HEPATIC & CMP COMBO,FASTING - [facility] (06/25/2018 18:50 EDT) Sodium 130 (L) 136 - 145 [facility] Potassium 4.3 3.5 - 5.1 [facility] Chloride 93 (L) 96 - 107 [facility] CO2 Total 26.4 21 - 32 [facility] Anion Gap 10.6 [facility] BUN 15 7 - 25 [facility] Creatinine 0.86 0.7 - 1.30 [facility] Estimated GFR >60 >60 [facility] Comment: CENTER LAB EGFR UNITS: mL/min/1.73 m 2 CKD-EPI Equation used to calculate. Glucose 89 FASTIN-99 [facility] Calcium 8.6 8.5 - 10.5 [facility] CALCIUM,CORRECTED - 9.0 8.5 - 10.5 [facility] BILIRUBIN - [facility] 0.30 0.00 - 1.00 [facility] AST 55 (H) 15 - 37 [facility] ALT 65 12 - 78 [facility] Alkaline Phosphatase 115 46 - 116 [facility] Total Protein 7.5 6.4 - 8.2 [facility] Albumin 3.5 3.4 - 5.0 [facility] GLOBULIN - PMC 4.0 [facility] ALBUMIN/GLOBULIN 0.8 [facility] RATIO [facility] Specimen Performing Organization Address City/State/ZIP Code Phon e Number [facility] [address] [place] [address] [facility] documented in this encounter Visit Diagnoses Not on filedocumented in this encounter Care Teams Health Information Assistant Relationship Specialty Start Date End Date Katia Stone PA-C PCP - General 05/02/[address] [facility] [place] [phone] documented as of this encounter
--- OUTSIDE RECORDS SUMMARY | 2021-12-14 01:06 | XMS_ITS | Encounter Summary ---
:1950 Author Organization [facility] Address [address] [place] [address] Care Team Providers Name Role Phone Katia Stone PA-C Primary Care Provider Encounter Details Date Type Department Care Team Description 05/28/2018 Historical Results [facility] - Yi, Haja Only [facility] MD Raulito Radiology Results [address] [place], [place] [phone] Social History Tobacco Use Types Packs/Day [...] Sig nature B-TYPE NATRIURETIC 129 (H) <100 [facility] PEPTIDE - [facility] Specimen Performing Organization Address City/State/ZIP Code Phon e Number [facility] [address] [place] [address] [facility] (ABNORMAL) COMPLETE BLOOD COUNT AND DIFFERENTIAL (05/28/2018 0:45 EDT) Pathologist Sig nature WBC 10.2 4.0 - 10.5 [facility] RBC 3.77 (L) 4.70 - 6.00 [facility] Hemoglobin 12.7 (L) 13.5 - 18.0 [facility] HCT 35.3 (L) 42.0 - 52.0 [facility] MCV 93.6 78 - 100 [facility] MCH 33.7 (H) 27 - 31 [facility] MCHC 36.0 32 - 36 [facility] RDW-CV - PMC 12.0 11.5 - 14.0 [facility] PLATELET COUNT - [facility] 306 150 - 450 [facility] NEUTROPHILS % (AUTO) - 76.5 (H) 42.0 - 75.0 [facility] LYMPHOCYTES % (AUTO) - 14.0 (L) 16.0 - 52.0 [facility] MONOCYTES % (AUTO) - 7.9 1.0 - 11.0 [facility] EOSINOPHILS % (AUTO) - 0.2 0.0 - 7.0 [facility] BASOPHILS % (AUTO) - 0.2 0.0 - 4.0 [facility] NUCLEATED RBC % (AUTO) 0.0 <1 [facility] NEUTROPHILS # (AUTO) - 7.8 (H) 1.5 - 6.6 [facility] LYMPHOCYTES # (AUTO) - 1.4 1.0 - 3.5 [facility] MONOCYTES # (AUTO) - 0.8 <1.0 [facility] EOSINOPHILS # (AUTO) - 0.0 <0.7 [facility] BASOPHILS # (AUTO) - 0.0 <0.1 [facility] NUCLEATED RBC # (AUTO) 0.00 <1 [facility] Specimen Performing Organization Address [facility] Phon e Number [facility] [address] LAB TROPONIN I (05/28/2018 0:45 EDT) [facility] Troponin I (ng/mL) <0.05 <0.10 [facility] Comment: EX[facility] LAB REFERENCE RANGE: Negative: ? <0.10 ng/mL Indeterminate: 0.10-0.80 ng/mL Positive: ? >0.80 ng/mL ........................................... The results of this assay can be falsely decreased due to the consumption of Biotin. Specimen Performing Organization Address [facility] Phon e Number [facility] [address] LAB (ABNORMAL) HEPATIC & CMP COMBO,FASTING - [facility] (05/28/2018 0:45 EDT) [facility] Sodium 120 (L) 136 - 145 [facility] Potassium 4.0 3.5 - 5.1 [facility] Chloride 83 (L) 96 - 107 [facility] CO2 Total 25.9 21 - 32 [facility] Anion Gap 11.1 [facility] BUN 6 (L) 7 - 25 [facility] Creatinine 0.60 (L) 0.7 - 1.30 [facility] Estimated GFR >60 >60 [facility] Comment: CENTER LAB EGFR UNITS: mL/min/1.73 m 2 CKD-EPI Equation used to calculate. Glucose 122 70 - 180 [facility] Calcium 9.1 8.5 - 10.5 [facility] CALCIUM,CORRECTED - 9.8 8.5 - 10.5 [facility] BILIRUBIN - PMC 0.30 0.00 - 1.00 [facility] AST 90 (H) 15 - 37 [facility] ALT 87 (H) 12 - 78 [facility] Alkaline Phosphatase 89 46 - 116 [facility] Total Protein 8.3 (H) 6.4 - 8.2 [facility] Albumin 3.1 (L) 3.4 - 5.0 [facility] GLOBULIN - PMC 5.2 [facility] ALBUMIN/GLOBULIN 0.5 [facility] RATIO - [facility] CENTER LAB Specimen Performing Organization Address City/State/ZIP Code Phon e Number [facility] [address] [place] [address] [facility] XR CHEST 2 VIEWS (05/28/2018 0:11 EDT) Specimen Narrative [facility] RADIOLOGY - 2018 0:11 EDT [facility]: [place] [facility] [address] [place], [place] [address] Diagnostic Imaging Report Signed Patient Name:DAVID FARFAN ? Date of :1950 ? MR Number:[id number] Age:67 ?Sex:M Category: CR ? Date of [...] Procedure Note [facility] Sherwood [facility] - [facility] [address] [id number] Diagnostic Imaging Report Signed Patient Name:DAVID FARFAN r:[id number] Date of :1950 MR Number:[id number] Age:67 Sex:M Category: CR Date of Exam:05/28/18 [...] Code Phon e Number [facility] RAD[facility] documented in this encounter Visit Diagnoses Not on filedocumented in this encounter Care Teams Utility Inspector Relationship Specialty Start Date End Date Katia Stone PA-C PCP - General 05/02/17 [address] [place] [phone] documented as of this encounter
--- OUTSIDE RECORDS SUMMARY | 2021-12-14 01:06 | XMS_ITS | Encounter Summary ---
:1950 Author Organization [facility] Address [address] [place] [address] Care Team Providers Name Role Phone Katia Stone PA-C Primary Care Provider Reason for Visit Reason Onset Date Comments Other 11/03/2019 pacemaker problem Encounter Details Date Type Department Care Team Description 11/03/2019 Telephone [facility] Tony Rosenberg Other ( pacemaker Cardiology - Chaitanya Jasmine MD problem) [address] [address] [place] [address] Social History Tobacco Use Types [...] Dr. Rosenberg. Needs to be done at [facility] when we have the lead extraction program up and running. Will keep you posted. JW Nila expressed understanding, she mentioned patient is anxious and would like to have more information regarding next steps. elephone Encounter - Marilyn Escoto - 11/03/2019 1017 EDT Spoke with Nila at [employer], she is wondering about update in regards to plan for lead revision. Nila asks for an update you can reach her at [phone] extension [phone] Please advise Telephone Encounter - Jada Ochoa - 11/03/2019 1015 EDT Patient's pacemaker has been shocking him. documented in this encounter Plan of Treatment Not on filedocumented as of this encounter Visit Diagnoses Not on filedocumented in this encounter Care Teams Health Services Administrator Relationship Specialty Start Date End Date Katia Stone PA-C PCP - General 05/02/[address] [place] [phone] documented as of this encounter
--- OUTSIDE RECORDS SUMMARY | 2021-12-14 01:06 | XMS_ITS | Encounter Summary ---
:1950 Author Organization [facility] Address [address] [place] [address] Care Team Providers Name Role Phone Katia Stone PA-C Primary Care Provider Reason for Visit Reason Onset Date Comments Coordination Of Care 11/12/2019 Encounter Details Date Type Department Care Team Description 11/12/2019 Telephone [facility] Dileep [facility] Cardiology - Chaitanya Trevino RN [address] [place], [place] [address] Social History Tobacco Use [...] RN - 11/12/2019 1036 EDT An from [email or web address] calling in to report that patient has had fallen 3 times yesterday. documented in this encounter Plan of Treatment Not on filedocumented as of this encounter Visit Diagnoses Not on filedocumented in this encounter Care Teams Supervising Producer Relationship Specialty Start Date End Date Katia Stone, PABijalC PCP - General 05/02/17 [address] [place] [phone] documented as of this encounter
--- OUTSIDE RECORDS SUMMARY | 2021-12-14 01:06 | XMS_ITS | Encounter Summary ---
:1950 Author Organization [facility] Address [address] [place] [address] Care Team Providers Name Role Phone Katia Stone PA-C Primary Care Provider Reason for Visit Reason Onset Date Comments Appointment Related 05/04/2020 Encounter Details Date Type Department Care Team Description 05/04/2020 Telephone [facility] Cherie Browne MD Appointment Related Cardiothoracic Surgery - [address] [place] [address], [address], [address] [place], [place] [address] [place] [address] [phone] (Wo rk) Social History Tobacco Use [...] - 05/10/2020 0953 EST Medical records from [facility] received, scanned and book marked for patient's [...] 05/08/2020, at 10:30 am. Fax out to [facility] and [facility] to request patient's Discharge Summary from recent hospitalization, as well as diagnostic testing, EKG, labs, etc. Await response. documented in this encounter Plan of Treatment Not on filedocumented as of this encounter Visit Diagnoses Not on filedocumented in this encounter Care Teams Water Truck Driver Relationship Specialty Start Date End Date Katia Stone PA-C PCP - General 05/02/[address] [place] [phone] documented as of this encounter
--- OUTSIDE RECORDS SUMMARY | 2021-12-14 01:06 | XMS_ITS | Encounter Summary ---
:1950 Author Organization [facility] Address [address] [place] [address] Care Team Providers Name Role Phone Katia Stone PA-C Primary Care Provider Encounter Details Date Type Department Care Team Description 06/18/[address] [facility] - Giselle Stone, Only [facility] [address] [place], [place] [phone] Social History Tobacco Use Types Packs/Day Years [...] 12:14 Results fo r this COMBO,FASTING - [facility] EDT procedur e are in the results section. documented in this encounter Results (ABNORMAL) HEPATIC & CMP COMBO,FASTING - PMC (06/18/2018 12:14 EDT) Sodium 125 (L) 136 - 145 [facility] Potassium 4.9 3.5 - 5.1 [facility] Chloride 88 (L) 96 - 107 [facility] CO2 Total 27.6 21 - 32 [facility] Anion Gap 8.4 [facility] BUN 8 7 - 25 [facility] Creatinine 0.69 (L) 0.7 - 1.30 [facility] Estimated GFR >60 >60 [facility] Comment: CENTER LAB EGFR UNITS: mL/min/1.73 m 2 CKD-EPI Equation used to calculate. Glucose 86 FASTIN-99 [facility] Calcium 8.4 (L) 8.5 - 10.5 [facility] CALCIUM,CORRECTED - 8.9 8.5 - 10.5 [facility] BILIRUBIN - [facility] 0.60 0.00 - 1.00 [facility] AST 63 (H) 15 - 37 [facility] ALT 58 12 - 78 [facility] Alkaline Phosphatase 94 46 - 116 [facility] Total Protein 7.3 6.4 - 8.2 [facility] Albumin 3.4 3.4 - 5.0 [facility] GLOBULIN - PMC 3.9 [facility] ALBUMIN/GLOBULIN 0.8 [facility] RATIO - [facility] CENTER LAB Specimen Performing Organization Address City/State/ZIP Code Phon e Number [facility] [address] [place] [address] [facility] documented in this encounter Visit Diagnoses Not on filedocumented in this encounter Care Teams Generator Switchboard Operator Relationship Specialty Start Date End Date Katia Stone PA-C PCP - General 05/02/[address] [facility] [place] [place] [phone] documented as of this encounter
--- OUTSIDE RECORDS SUMMARY | 2021-12-14 01:06 | XMS_ITS | Encounter Summary ---
:1950 Author Organization [facility] Address [address] [place] [address] Care Team Providers Name Role Phone Katia Stone PA-C Primary Care Provider Encounter Details Date Type Department Care Team Description 08/13/2018 Historical Results [facility] - Giselle Stone, Only [facility] [address] [place], [place] [phone] Social History Tobacco Use Types Packs/Day Years [...] 5.1 [facility] Chloride 91 (L) 96 - 107 [facility] CO2 Total 25.4 21 - 32 [facility] Anion Gap 8.6 [facility] BUN 7 7 - 25 [facility] Creatinine 0.59 (L) 0.7 - 1.30 [facility] Estimated GFR >60 >60 [facility] Comment: CENTER LAB EGFR UNITS: mL/min/1.73 m 2 CKD-EPI Equation used to calculate. Glucose 88 FASTIN-99 [facility] Calcium 8.1 (L) 8.5 - 10.5 [facility] CALCIUM,CORRECTED - 8.7 8.5 - 10.5 [facility] BILIRUBIN - PMC 0.20 0.00 - 1.00 [facility] AST 40 (H) 15 - 37 [facility] ALT 45 12 - 78 [facility] Alkaline Phosphatase 112 46 - 116 [facility] Total Protein 7.1 6.4 - 8.2 [facility] Albumin 3.2 (L) 3.4 - 5.0 [facility] GLOBULIN - PMC 3.9 [facility] ALBUMIN/GLOBULIN 0.8 [facility]ENTER LAB Specimen Performing Organization Address City/State/ZIP Code Phon e Number [facility] [address] [place] [address] [facility] documented in this encounter Visit Diagnoses Not on filedocumented in this encounter Care Teams Oil Bay Technician Relationship Specialty Start Date End Date Katia Stone PA-C PCP - General 05/02/[address] [facility] [place] [facility] [place] [phone] documented as of this encounter
--- OUTSIDE RECORDS SUMMARY | 2021-12-14 01:06 | XMS_ITS | Encounter Summary ---
:1950 Author Organization [facility] Address [address] [place] [address] Care Team Providers Name Role Phone Katia Stone PA-C Primary Care Provider Reason for Visit Reason Onset Date Comments Appointment Related 06/06/2020 Encounter Details Date Type Department Care Team Description 06/06/2020 Telephone [facility] Cherie Browne MD Appointment Related Cardiothoracic Surgery - [address] [place] [address], [address], [address] [place], [place] [address] [place] [address] [phone] (Wo rk) Social History Tobacco Use [...] Telephone Encounter - Alma Dhillon - 06/06/2020 3224 EDT At her request, I have telephoned Nurse Watch Engineer, Nila, at [facility] to advise of this patient's surgery date. [...] on filedocumented in this encounter Care Teams Veneer Lathe Operator Relationship Specialty Start Date End Date Katia Stone PA-C PCP - General 05/02/17 [address] [place] [phone] documented as of this encounter
--- OUTSIDE RECORDS SUMMARY | 2021-12-14 01:06 | XMS_ITS | Encounter Summary ---
:1950 Author Organization [facility] Address [address] [place] [address] Care Team Providers Name Role Phone Katia Stone PA-C Primary Care Provider Reason for Visit Reason Onset Date Comments Labs Only 05/11/2020 Encounter Details Date Type Department Care Team Description 05/11/2020 Telephone [facility] Ja Young MD Labs Only Care Surgery [address] [address] [address], [place], [place] [phone] (Wo rk) Social History [...] also reviewed this with the Radiology front office agent on ACC 3 that he would need to be taken to the lab on Level 2 following his chest x-ray. They did not take him. I will re-enter the orders for the CBC to have drawn at [place] which is closest to the patient's home he states. I have routed our CT PACHECO Salvador STOUT to re-enter the Type and Screen/ x match order to be drawn in pre-op hold on the dosa. Pt made aware to go to [facility] to have the CBC drawn on 05/17 or 05/18. I confirmed with the Lab there that it's the CBC that needs to be drawn. Improvement Analyst verbalized understanding and no appt needed. Pt [...] filedocumented in this encounter Care Teams Coding Specialist Home Health Relationship Specialty Start Date End Date Katia Stone PA-C PCP - General 05/02/17 [address] [place] [phone] documented as of this encounter
--- OUTSIDE RECORDS SUMMARY | 2021-12-14 01:06 | XMS_ITS | Encounter Summary ---
:1950 Author Organization [facility] Address [address] [place] [address] Care Team Providers Name Role Phone Katia Stone PA-C Primary Care Provider Reason for Visit Reason Onset Date Comments Other 05/19/2020 Encounter Details Date Type Department Care Team Description 05/19/2020 Telephone [facility] Cherie Browne MD Other Cardiothoracic Surgery - [address] [place] [address], [address], [address] [place], [place] [address] [place] [address] [phone] (Wo rk) Social History Tobacco Use [...] CT Surgery Update Patient showed up at [facility] for his CBC and the label drier turned him away as the patient said I'll wait and have it done in [place] when I have the other blood test done. The other blood test needed is on the day of surgery for a Pre-Op Blood Draw (type and screen). I called the lab and spoke with idania Weeks and she will place a note in the system so that they don't turn him away again. I asked them to call our office at [phone] if there are any questions when the patient arrives. He must have the CBC prior to surgery. I called Nila the CM at his Proivder's office and reviewed above with her. She will call the patient as she works closely with him. P) CBC at [place]. Call CT Surgery WHILE PATIENT IS THERE IF ANY QUESTIONS. elephone Encounter - Alma Dhillon - 05/19/2020 1244 EDT Please call case management manager at PCP Office, Nila. Patient went to [facility] to have pre-op blood draw, as he was directed. [facility] saw the order for blood bank draw, and would not draw any bloodwork for thepatient. documented in this encounter Plan of Treatment Not on filedocumented as of this encounter Visit Diagnoses Not on filedocumented in this encounter Care Teams Cardiologist Relationship Specialty Start Date End Date Katia Stone PA-C PCP - General 05/02/17 [address] [place] [phone] documented as of this encounter
--- OUTSIDE RECORDS SUMMARY | 2021-12-14 01:06 | XMS_ITS | Encounter Summary ---
:1950 Author Organization [facility] Address [address] [place] [address] Care Team Providers Name Role Phone Katia Stone PA-C Primary Care Provider Reason for Visit Reason Onset Date Comments Appointment Related 02/07/2020 PA REQUEST Encounter Details Date Type Department Care Team Description 02/07/2020 Telephone [facility] - Shelley Reinoso MD Appointment Related ([facility] [address] REQUEST) Cardiology Clinic [place], [place] [address] [facility] [phone] [place], [place] [address] Social History Tobacco Use Types Packs/Day Years [...] - 02/07/2020 1327 EST PA REQUEST ECHOCARDIOGRAM [id number] 02/29/20 DYSPNEA (R06.0) VITA LIVE THANK YOU! documented in this encounter Plan of Treatment Not on filedocumented as of this encounter Visit Diagnoses Not on filedocumented in this encounter Care Teams Etymology Teacher Relationship Specialty Start Date End Date Katia Stone, PABijalC PCP - General 05/02/17 [address] [place] [phone] documented as of this encounter
--- OUTSIDE RECORDS SUMMARY | 2021-12-14 01:06 | XMS_ITS | Encounter Summary ---
:1950 Author Organization [facility] Address [address] [place] [address] Care Team Providers Name Role Phone Katia Stone PA-C Primary Care Provider Encounter Details Date Type Department Care Team Description 01/13/2020 Results Only [facility]- Jayesh Baldwin, [address] [place] [phone] (Wo rk) Social History Tobacco Use [...] Sodium 122 (L) 136 - 145 mEq/L [facility] Specimen Performing Organization Address [facility] Code Phon e Number [facility] [address] [place] [address] (ABNORMAL) SODIUM (01/13/2020 13:12 EST) Pathologist Sig nature Sodium 126 (L) 136 - 145 mEq/L [facility] Specimen Performing Organization Address [facility] Phon e Number [facility] [address] [place] [address] documented in this encounter Visit Diagnoses Not on filedocumented in this encounter Care Teams Centrifuge Separator Operator Relationship Specialty Start Date End Date Katia Stone PA-C PCP - General 05/02/17 [address] [place] [phone] documented as of this encounter
--- OUTSIDE RECORDS SUMMARY | 2021-12-14 01:06 | XMS_ITS | Encounter Summary ---
:1950 Author Organization [facility] Address [address] [place] [address] Care Team Providers Name Role Phone Katia Stone PA-C Primary Care Provider Encounter Details Date Type Department Care Team Description 12/12/2018 Results Only [facility] - Candelaria Vila MD [facility] [address] [address] [place], [place] [address] (Wo rk) Social History Tobacco [...] BILIRUBIN - PMC 0.40 0.00 - 1.00 [facility] mg/dl [facility]ENTER [facility] DIRECT BILIRUBIN - PMC 0.10 0.00 - 0.30 [facility] mg/dl [facility] INDIRECT BILIRUBIN - 0.30 0.00 - 0.80 [facility] PMC mg/dl [facility] AST 68 (H) 15 - 37 U/L [facility] LAB ALT 53 12 - 78 U/L [facility] LAB Alkaline Phosphatase 98 46 - 116 U/L [facility] Total Protein 7.4 6.4 - 8.2 g/dl [facility] LAB Albumin 3.0 (L) 3.4 - 5.0 g/dl [facility] LAB GLOBULIN - PMC 4.4 g/dl [facility] LAB ALBUMIN/GLOBULIN RATIO 0.6 [facility] LAB Specimen Performing Organization Address City/State/ZIP Code Phon e Number [facility] [address] [place] [address] [facility] LAB PROCALCITONIN - PMC (12/12/2018 22:16 EDT) Procalcitonin <0.05 <0.50 ng/mL [facility] Comment: CENTER LAB Concentration of [...] occur without infection. Specimen Performing Organization Address [facility] LAB [address] [place] [address] LAB (ABNORMAL) BNP - PMC (12/12/2018 22:15 EDT) Pathologist [facility] B-TYPE NATRIURETIC 123 (H) <100 pg/mL [facility] PEPTIDE - [facility] LAB Specimen Performing Organization Address [facility] LAB [address] [place] [address] LAB TROPONIN I (12/12/2018 22:06 EDT) Pathologist [facility] Troponin I (ng/mL) <0.05 <0.10 ng/ml [facility] Comment: CENTER LAB REFERENCE RANGE: Negative: ? <0.10 ng/mL Indeterminate: 0.10-0.80 ng/mL Positive: ? >0.80 ng/mL ........................................... The results of this assay can be falsely decreased due to the consumption of Biotin. Specimen Performing Organization Address [facility] LAB [address] [place], [place] [id number] [place] [address] LAB (ABNORMAL) BASIC METABOLIC PANEL,RANDOM - PMC (12/12/2018 22:06 EDT) Sodium 120 (L) 136 - 145 [facility] mEq/L [facility] Potassium 4.6 3.5 - 5.1 [facility] mEq/L [facility] Chloride 86 (L) 96 - 107 [facility] mEq/L [facility] CO2 Total 25.2 21 - 32 mEq/L [facility] LAB Anion Gap 8.8 mEq/L [facility] LAB BUN 7 7 - 25 mg/dl [facility] LAB Creatinine 0.61 (L) 0.7 - 1.30 [facility] mg/dl [facility]ENTER [facility] Estimated GFR >60 >60 [facility] Comment: CENTER LAB EGFR UNITS: mL/min/1.73 m 2 CKD-EPI Equation used to calculate. GLUCOSE,RANDOM - 89 70 - 180 [facility] PMC mg/dl [facility] Calcium 8.1 (L) 8.5 - 10.5 [facility] mg/dl [facility] Specimen Performing Organization Address City/State/[facility] Code Phon e Number [facility] [address] [place] [address] [facility] documented in this encounter Visit Diagnoses Not on filedocumented in this encounter Care Teams Register Of Deeds Relationship Specialty Start Date End Date Katia Stone PA-C PCP - General 05/02/[address] [place] [id number] documented as of this encounter
--- OUTSIDE RECORDS SUMMARY | 2021-12-14 01:07 | XMS_ITS | Encounter Summary ---
:[address] [facility] Address [address] [place] [address] Care Team Providers Name Role Phone Katia Stone PA-C Primary Care Provider Reason for Visit Reason Onset Date Comments Medication Questions 07/16/2017 Encounter Details Date Type Department Care Team Description 07/16/2017 Telephone [facility] Caitie Atwood, dication Questions Cardiology - Chaitanya [employer] ARCHITECT [address] [place] [address] (Wo rk) Social History Tobacco [...] on filedocumented in this encounter Care Teams Mechanical Equipment Test Engineer Relationship Specialty Start Date End Date Katia Stone PA-C PCP - General 05/02/[address] [place] [id number] documented as of this encounter
--- OUTSIDE RECORDS SUMMARY | 2021-12-14 01:07 | XMS_ITS | Encounter Summary ---
:1950 Author Organization [facility] Address [address] [place] [address] Care Team Providers Name Role Phone Katia Stone PA-C Primary Care Provider Encounter Details Date Type Department Care Team Description 06/11/2017 Results Only Imaging [facility] Alan Pratt MD Adult Primary Care - [address] [place] [id number] [place], [place] [address] [phone] Social History Tobacco Use Types Packs/Day Years [...] there is no r eport. Procedure Note DIRECTOR OF CHANNEL MARKETING, IMAGING - 06/13/2017 This is an outside study - there is no r eport. Performing Organization Address City/State/ZIP Code Phon e Number OP CARDIOLOGY documented in this encounter Visit Diagnoses Not on filedocumented in this encounter Care Teams Risk Adjustment Specialist Relationship Specialty Start Date End Date Katia Stone PA-C PCP - General 05/02/17 [address] [place] [phone] documented as of this encounter
--- OUTSIDE RECORDS SUMMARY | 2021-12-14 01:07 | XMS_ITS | Encounter Summary ---
:1950 Author Organization [facility] Address [address] [place] [address] Care Team Providers Name Role Phone Katia Stone PA-C Primary Care Provider Reason for Visit Reason Onset Date Comments Update 06/12/2017 on admission to [facility] Encounter Details Date Type Department Care Team Description 06/12/2017 Telephone [facility] Tony Rosenberg Update (on admission to Cardiology - Chaitanya Jasmine MD [facility]) [address] [address] [place] [address] Social History Tobacco Use Types [...] EDT [facility] ele[facility] Encounter - Belinda Falk RN [...] Reason for Call: Update (on admission to [facility]) Summary/Symptoms: Yessica would like to speak to the nurse regarding this patient being admitted to [facility] today at Dr. Paola Gonzáles 06/12/2017 9:24 documented in this encounter Plan of Treatment Not on filedocumented as of this encounter Visit Diagnoses Not on filedocumented in this encounter Care Teams Hand Zipper Trimmer Relationship Specialty Start Date End Date Katia Stone, MINGO PCP - General 05/02/17 [address] [place] [phone] documented as of this encounter
--- OUTSIDE RECORDS SUMMARY | 2021-12-14 01:07 | XMS_ITS | Encounter Summary ---
:1950 Author Organization [facility] Address [address] [place] [address] Care Team Providers Name Role Phone Katia Stone PA-C Primary Care Provider Reason for Visit Reason Onset Date Comments Other 05/29/2017 Encounter Details Date Type Department Care Team Description 05/29/2017 Telephone [facility] Cardiology - Melly Mariee RN Other [address]ait[address] [place] [place], [place] [address] Social History Tobacco Use [...] 05/29/2017 1018 EDT Spoke with Yessica, at [facility] She spoke with pt today and he had 2 episodes of sharp pains that lasted seconds at the pacemaker site Yessica- RN would like a call back with plan She states pt has had a 11# weight gain, denies shortness of breath Daughter in law takes care of meds- [phone] Spoke with pt- he had 2 quick [...] on filedocumented in this encounter Care Teams Press Feeder Relationship Specialty Start Date End Date Katia Stone, BELLAC PCP - General 05/02/17 [address] [place] [id number] documented as of this encounter
--- OUTSIDE RECORDS SUMMARY | 2021-12-14 01:07 | XMS_ITS | Encounter Summary ---
:1950 Author Organization [facility] Address [address] [place] [address] Care Team Providers Name Role Phone Katia Stone PA-C Primary Care Provider Reason for Visit Reason Onset Date Comments Other 06/18/2017 discharged on .16 Follow-up 07/16/2017 Encounter Details Date Type Department Care Team Description 06/18/2017 Telephone [facility] Pierre Rubio (discharged on Cardiology - Chaitanya Wiggins MD .04.18); Follow-up [address] [facility], [address] [place] [address] (Wo rk) Social History Tobacco [...] - 07/16/2017 1310 EDT Riley WINSTON at [facility] called. States : Wt 2 [...] more clled in to [facility] in [place], stated colchicinehas run out- not sure if pt needs a refill or not. States he called pt's PCP in [place] and that MD wants to know if RN should draw labs? Please call back JOAN as he is with the pt now. Routing to Giovanni Sam NP and Belinda Eddy RN and will also go speak with one of them as well. Let Riley WINSTON know that Belinda Eddy would call back. elephone Encounter - Isidra Telles - 07/16/2017 1257 EDT [facility] calling, Weight at 224, has been fluctuating Limited edema Has been winded Less endurance Cough has green secretions Some slight harsh breathing sounds Questions: Blood Work? Prednisone Taper seems to be off, will need a refill if continuing in the same manner Telephone Encounter - Belinda Falk RN - 06/18/2017 1630 EDT Spoke with Riley horta [facility] mentioned call placed to patient to confirm medication taking. Per patient he was taking Torsemide 40 mg daily and was not taking lasix. Per Riley this was differnet then what was discussed. Referred home Health to discuss care with Shailesh Torres MD in [place] and Katia Mccallum PA-C, [facility]. elephone Encounter - Belinda Falk [...] on 06.16.17. He has been feeling ok. [facility] is calling to discuss his medications [...] filedocumented in this encounter Care Teams Machine Maintenance Servicer Relationship Specialty Start Date End Date Katia Stone PA-C PCP - General 05/02/17 [address] [place] [phone] documented as of this encounter
--- OUTSIDE RECORDS SUMMARY | 2021-12-14 01:07 | XMS_ITS | Encounter Summary ---
:1950 Author Organization [facility] Address [address] [place] [address] Care Team Providers Name Role Phone Katia Stone PA-C Primary Care Provider Reason for Visit Reason Onset Date Comments Labs Only 07/22/2017 from 07/16 Encounter Details Date Type Department Care Team Description 07/22/2017 Telephone [facility] Tony Rosenberg Labs On (from 07/16) Cardiology - Chaitanya Jasmine MD [address] [place] [address] [address] [place] [address] (Wo rk) Social History Tobacco [...] call office back with call back number [phone]. Telephone Encounter - Belinda Falk RN - 07/23/2017 1054 EDT Call received from Yessica with questions on when patient's follow-up appointment was with Dr. Rosenberg, where the labwork needed to be sent to, and in put from cardiology. Provided Yessica the provider access line for PCP to discuss patient's care with Dr. Rosenberg. Also discussed with Yessica since patient is seen in [place] records are not accessible to our office(labs, and outside office notes). Yessica to review with PCP and formulate coordination of care with [facility]. Telephone Encounter - Belinda Falk RN - 07/22/2017 1500 EDT Call placed to Yessica regarding Tim Mera unable to reach patient by phone. Message left on voice mail to call office back with call back number [phone]. Telephone Encounter - Morena Lux - 07/22/2017 1456 EDT Yessica from [facility] Regarding patients labs from 07/16 Has anyone addressed them Please call to advise documented in this encounter Plan of Treatment Not on filedocumented as of this encounter Visit Diagnoses Not on filedocumented in this encounter Care Teams Linen Aide Relationship Specialty Start Date End Date Katia Stone PA-C PCP - General 05/02/[address] [place] [id number] documented as of this encounter
--- OUTSIDE RECORDS SUMMARY | 2021-12-14 01:07 | XMS_ITS | Encounter Summary ---
:1950 Author Organization [facility] Address [address] [place] [address] Care Team Providers Name Role Phone Katia Stone PA-C Primary Care Provider Encounter Details Date Type Department Care Team Description 05/20/2017 Results Only Imaging [facility]- Unknown, [facility] Provider, Social History [...] on filedocumented in this encounter Care Teams Byproducts Maker Relationship Specialty Start Date End Date Katia Stone, PABijalC PCP - General 05/02/[address] [place] [id number] documented as of this encounter
--- OUTSIDE RECORDS SUMMARY | 2021-12-14 01:07 | XMS_ITS | Encounter Summary ---
:1950 Author Organization [facility] Address [address] [place] [address] Care Team Providers Name Role Phone Katia Stone PA-C Primary Care Provider Reason for Referral Consult (Routine) - New Request Specialty Diagnoses / Procedures Referred By Contact Refer red To Contact Diagnoses Heart failure, unspecified HF chronicity, unspecified heart failure type (HCC- CMS) (HCC) Subacute effusive constrictive pericarditis Michael Pratt MD [address] [place] [phone] Referral ID Status Reason Start Expiration Visits Visits Date Date Requested Authorized [id number] New Request Specialty 06/16/2017 1 1 Services Required Question Answer Reason for Request: f/u constrictive pericarditi s Expected Discharge Date (Inpatient Only): 06/16/2017 Practice Site (External Referral Only): [facility] Comments With Dr. Torres ollow Up (3 - 10 Business Days) - Receiving Office to Obtain Authorization Specialty Diagnoses / Procedures Referred By Contact Refer red To Contact Diagnoses Heart failure, unspecified HF chronicity, unspecified heart failure type (HCC- CMS) (HCC) Subacute effusive constrictive pericarditis Bg Atwood MD [address] [facility] 1 [place] [address] Referral ID Status Reason Start Expiration Visits Visits Date Date Requested Authorized [id number] Receiving Office Continuity of 1 1 to [...] Subacute effusive constrictive pericarditis Bg Atwood, - [address] [facility], [facility] [address] [address] [place] [address] Referral ID Status Reason Start Expiration Visits Visits Date Date Requested Authorized [id number] New Request Specialty 06/16/2017 1 1 Services Required Question Answer I certify that this patient is under my 06/16/2017 care and that I, or another Medicare allowed practitioner (DO CHAMP, PACHECO) working with me, had a vchv-ne-spnw encounter with this patient on this date: I further certify that the oncw-lr-pycx Yes encounter was in whole or in [...] taxing effort: Skilled Care Requested Nursing asessment snf assessment needed related Response to new or changed medication to this encounter: Expected Discharge Date (Inpatient Only): 06/16/2017 Encounter Details Date Type Department Care Team Description 06/12/2017 - [facility] Nithya Rand MD PhD [address] [phone] Heart failure, unspecified HF chronicity , unspecified heart failure type (HCC-CMS) (Primary Dx); 06/16/2017 Encounter Cardiac/Telemetry Bg Atwood MD [address] [phone] Subacute effusive constrictive pericardi tis Unit Tony Rosenberg MD [address] [place] [address] [place] [phone] [address] [place], [place] [id number] Social History Tobacco Use Types Packs/Day Years [...] HF chronicity, unspecified heart failure type ([facility]) 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 Heart failure ([facility]) 06/12/2017 Resolved Hospital Problems Diagnosis Date Noted [...] orthopnea on a follow up exam at [facility]. He was transferred to [facility] due to concern for subacute constrictive pericarditis [...] Component Value Units Date/Time Bacterial Culture/Smear, Fluid [[id number]] Collected: 06/13/17 0826 Lab Status: Preliminary result Specimen: FOSMIC from Pleural Fluid Updated: 06/15/17 07 Gram Smear Result Polys present No bacteria seen Result No growth Bacterial Culture, Blood [[id number]] Collected: 06/12/172246 Lab Status: In process Specimen: Blood Updated: 06/12/172320 Bacterial Culture, Blood [[id number]] Collected: 06/12/172239 Lab Status: In process Specimen: [...] 05/01/2017 Discharge Follow Up Appointments Scheduled with [facility] Upcoming Appointments Aug 06, 2017 15:20 EDT Follow Up Return with Tony Rosenberg MD [facility] Cardiology [facility] (--) [address] [place] [id number] Appointments Outside of [facility] We Will Schedule Follow-up appointments and procedures Amb Consult/Follow Up Cardiology With Dr. Torres Reason for Request: f/u constrictive pericarditis Expected Discharge Date (Inpatient Only): 06/16/2017 Practice Site (External Referral Only): [facility] Authorizing Provider: Michael Pratt MD Amb Consult/Follow Up Primary Care Physician Reason for Request: f/u hospitalization for constrictive pericarditis Expected Discharge Date (Inpatient Only): 06/16/2017 Authorizing Provider: Bg Atwood MD Home Health Agency-Other I certify that this patient is under my care and that I, or another Medicare authorized non-physician practitioner (PA or NEEDLE LOOM SETTER) or resident working with me, had a ztck-sa-btaj encounter with this patient on this date: 06/16/2017 I further certify that the lhtc-sx-vzeg encounter was in whole or in part related to the reason the patient needs home health care.: Yes The patient has had a buud-ty-visz visit by me or one of my [...] and ambulation Skilled Care Requested: Nursing asessment snf assessment needed related to this encounter: Response to new or changed medication Expected Discharge Date (Inpatient Only): 06/16/2017 Authorizing Provider: Bg Atwood MD Additional Information: Please follow up at [facility] with Dr. Tony Rosenberg on August 06, 2017 at 3:20 pm. If you have questions please call [phone]. Please follow up with your primary care physician, Katia Mccallum, on June 17, 2017 at 10:45 am. If you have any questions please call [phone]. Studies We Will Schedule Appointments We Recommend but have not been Scheduled None Michael Pratt MD 06/16/2017 15:18 I evaluated the patient and agree with the discharge summary as outlined above by Dr. Pratt. Mr. Farfan was feeling much better today. 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 BG ATWOOD MD Attending Assembly Machine Set Up Mechanic [facility] documented in this encounter Discharge Instructions AppointmentsDesi Thomas - 06/16/2017 12:01 EDT Please follow up at [facility] with Dr. Tony Rosenberg on August 06, 2017 at 3:20 pm. If you have questions please call [phone]. Please follow up with your primary care physician, Katia Mccallum, on June 17, 2017 at 10:45 am. If you have any questions please call [phone]. Discharge Instr - Other Melida Mas RN [...] through Care Everywhere. HEART FAILURE: AVOIDING TRIGGERS (SRI LANKAN)documented in this encounter Medications at Time of [...] Disposition Code Departure Means Destination Home-Health Care [facility] documented in this encounter Progress Notes Desi Villatoro, RN - 06/16/2017 1657 EDT CM DISCHARGE NOTE: Pt was discharged home with Home Health Services. D/C Summary was faxed to his Lacing Presser at Dr. Mccallum's office. Desi Villatoro, RN [...] daily with taper in near future - MARKETING TECHNOLOGIST torsemide 40mg daily Hypokalemia/Hypomagnesemia -replete as needed [...] catheterization for tomorrow. BG ATWOOD MD Attending Assembly Machine Set Up Mechanic [facility] - [...] daily with taper in near future - MARKETING TECHNOLOGIST torsemide 40mg daily Pleural Effusions: Associated with [...] not lie flat. BG ATWOOD MD Attending Assembly Machine Set Up Mechanic [facility] - [...] into our system or repeat echo - MARKETING TECHNOLOGIST torsemide 40mg daily - Medical management pending [...] appetite. Pt currently not in room (in radiographer cardiac catheterization). O/ wt-100.7 kg Prior wt-~108 kg(05/24/17) Ht-180.3 [...] to d/c. Magalis Berger RD, CD X/cover #[id number] YTAmeena Teixeira - 06/13/2017 1159 EDT Initial Case Management/Social Work Assessment and Discharge Plan/Readmission Risk Assessment REASON FOR ADMISSION: Heart failure ([facility]) Patient understands reason for admission: Yes PATIENT CONTACT INFO VERIFIED: Yes PATIENT ADDRESS VERIFIED: Yes (David is staying with his son Mo temporarily in [place]. He did not know the address) LIVING [...] his sons have been driving him) CULTURAL, YARSANISM and/or LANGUAGE factors affecting health care/discharge planning: [...] [place] - [address] - [place], [place] - [address] [facility] [place] [address] [facility] ([facility] - [facility] [place] - [address] [facility] [address] [facility] [address] Home Health: [facility] Other: Other (enter in comments) (he has a urgent care technician through [facility]) POST HOSPITAL TRANSITION PLAN: Likely Dc to his son's house with continuation of HH RN services. He reports that he has only been drinking 1-2 beers/day. He denied any concern over his ETOH use. AMEENA TEIXEIRA 06/13/2017 11:59 For Ivelisse Rueda Desi Singh, TISH - 06/13/2017 0923 EDT 06/13: Received a call from Yessica Card at [facility]. She is the patient's Lacing Presser. I've faxed patient's H&P to her and will keep her up to date on patient's progress and projected d/c. Yessica Card, Lacing Presser P: [phone] ext [phone] F: [phone] Desi Villatoro RN [id number] Renetta Saenz RN - 06/13/2017 0823 [...] H&P Notes Denilson Shannon MD - 06/12/2017 8086 EDT Cardiology Admitting H&P Admit Date: 06/12/2017 [...] follow up performed by Dr. Rosenberg in [place] (has now completed 14 days of ibuprofen). After seeing Dr. Rosenberg yesterday and having an echo performed, he was noted to have worsening dyspnea, orthopnea, and increasing pleural effusions. He denies chest pain, diaphoresis, arm/jaw pain, wheezing, nausea/vomiting, change in bowels, or change in urination. He notes an ongoing cough with worsening abdominal pain from coughing so frequently. He was transferred to [facility] for consideration of thoracentesis and medical management. [...] tomorrow (either bedside or IR guided) - MARKETING TECHNOLOGIST torsemide 40mg daily - NPO after midnight [...] Addendum 66 yo man who lives in [facility] and follows with Dr. Rosenberg with a [...] - team attempted to obtain echo from [facility] however unable to do so until AM - if no other etiology found consider switching to colchicine + prednisone - blood cultures Denilson Shannon MD [employer]stitcher [employer] Pager [phone] 06/12/2017 21:56 Associated attestation - Bg Atwood [...] thoracentesis as well. BG ATWOOD MD Attending Assembly Machine Set Up Mechanic [facility] Procedure Notes Randy Ireland PA-C - 06/13/2017 0839 EDT IR Procedure Note Procedure: Requested U/S guided bilateral thoracentesis Date Performed: 06/13/2017 Radiologist/Supervisor Coal Handling(s):MD Andrea /MINGO Ireland Sedation/Anesthesia: local Time Out: [...] independently without difficulty. Dischargehome orders received. Action: [facility] called and report given. They are familiar [...] with patient.Informed pt that he will have [facility] on Friday. R: Pt verbalized understanding of his plan of care. lan of Care - Mila Mcallister RN - 06/14/2017 9348 EDT Problem: Daily Care Plan Goals Goal: [...] to room/call garza system. Admission database completed. satellite project site monitor applied. Plan of care reviewed to include [...] nature Magnesium 1.9 1.7 - 2.8 mg/dl [facility] TORY SERVICES Specimen Blood specimen (specimen) - Blood Performing Organization Address City/State/ZIP Code Phon e Number [facility] [address] [place] [address] SERVICES (ABNORMAL) ELECTROLYTES (06/16/2017 5:39 EDT) Pathologist Sig nature Sodium 133 (L) 136 - 145 mEq/L [facility] Potassium 3.7 3.5 - 5.0 mEq/L [facility] SERVICES Chloride 90 (L) 96 - 110 mEq/L [facility]ORAT ORY SERVICES CO2 33 (H) 22 - 32 mEq/L [facility] LABORATO RY SERVICES Specimen Blood specimen (specimen) - Blood Performing Organization Address [facility] Phon e Number [facility] [address] [place] [phone] SERVICES (ABNORMAL) HEMAGRAM (06/16/2017 5:39 EDT) Pathologist Sig nature WBC 10.81 (H) 4.0 - 10.4 K/cmm [facility] SERVICES RBC 3.83 (L) 4.36 - 5.78 M/cmm [facility] SERVICES Hemoglobin 12.4 (L) 13.8 - 17.3 gm/dl [facility] SERVICES HCT 35.6 (L) 39.5 - 50.2 % [facility] SERVICES MCV 93 81 - 95 fl [facility] SERVICES MCH 32.4 27.6 - 33.0 pg [facility] SERVICES MCHC 34.8 32.8 - 36.4 gm/dl [facility] SERVICES RDW-CV 11.9 <14.2 % [facility] SERVICES RDW-SD 40.8 <46.0 fl [facility] SERVICES PLT 204 141 - 377 K/cmm [facility] SERVICES MPV 12.4 9.5 - 12.7 fl [facility] SERVICES Specimen Blood specimen (specimen) - Blood Performing Organization Address City/[facility]/ZIP Code Phon e Number [facility] [address] [place] [address] SERVICES CREATININE (06/16/2017 5:39 EDT) Creatinine 0.67 0.66 - 1.25 [facility] mg/dl LABORATORY SERVICES GFR, Calculated 100 >60 [facility] Comment: ml/min/1.73m2 LABORATORY eGFR calculated using CKD-EPI equation for SERVICES non Americans. Multiply eGFR by 1.16 for Americans. Specimen Blood specimen (specimen) - Blood Performing Organization Address [facility]/ZIP [facility] Phon e Number [facility] [address] [place] [address] SERVICES MAGNESIUM (06/15/2017 5:31 EDT) Pathologist Sig nature Magnesium 1.7 1.7 - 2.8 mg/dl [facility] TORY SERVICES Specimen Blood specimen (specimen) - Blood Performing Organization Address [facility] Phon e Number [facility] [address] [place] [address] SERVICES (ABNORMAL) ELECTROLYTES (06/15/2017 5:31 EDT) Pathologist Sig nature Sodium 133 (L) 136 - 145 mEq/L [facility] TORY SERVICES Potassium 3.4 (L) 3.5 - 5.0 mEq/L [facility] TORY SERVICES Chloride 90 (L) 96 - 110 mEq/L [facility]ORAT ORY SERVICES CO2 34 (H) 22 - 32 mEq/L [facility] LABORATO RY SERVICES Specimen Blood specimen (specimen) - Blood Performing Organization Address [facility] Phon e Number [facility] [address] [place] [address] SERVICES (ABNORMAL) HEMAGRAM (06/15/2017 5:31 EDT) Pathologist Sig nature WBC 11.63 (H) 4.0 - 10.4 K/cmm [facility] SERVICES RBC 3.51 (L) 4.36 - 5.78 M/cmm [facility] SERVICES Hemoglobin 11.4 (L) 13.8 - 17.3 gm/dl [facility] SERVICES HCT 33.1 (L) 39.5 - 50.2 % [facility] SERVICES MCV 94 81 - 95 fl [facility] SERVICES MCH 32.5 27.6 - 33.0 pg [facility] SERVICES MCHC 34.4 32.8 - 36.4 gm/dl [facility] SERVICES RDW-CV 12.0 <14.2 % [facility] SERVICES RDW-SD 41.4 <46.0 fl [facility] SERVICES PLT 240 141 - 377 K/cmm [facility] SERVICES MPV 11.1 9.5 - 12.7 fl [facility]OR[facility] SERVICES Specimen Blood specimen (specimen) - Blood Performing Organization Address City/[facility]/ZIP Code Phon e Number [facility] [address] [place] [address] SERVICES (ABNORMAL) CREATININE (06/15/2017 5:31 EDT) Creatinine 0.65 (L) 0.66 - 1.25 [facility] mg/dl LABORATORY SERVICES GFR, Calculated 101 >60 [facility] Comment: ml/min/1.73m2 LABORATORY eGFR calculated using CKD-EPI equation for SERVICES non Americans. Multiply eGFR by 1.16 for Americans. Specimen Blood specimen (specimen) - Blood Performing Organization Address City/[facility] Phon e Number [facility] [address] [place] [address] SERVICES INPATIENT ADD-ON (06/14/2017 8:00 EDT) Tests to be added PLEASE ADD ON [facility] DIFFERENTIAL TO CBC LABORATORY SERVICES Number for [id number] [facility] problems LABORATORY SERVICES Accession number [id number] [facility]ORATORY SERVICES Specimen Other Performing Organization Address [facility] Phon e Number [facility] [address] [place] [address] SERVICES (ABNORMAL) DIFFERENTIAL (06/14/2017 5:32 EDT) Pathologist Sig nature Neutrophils 72.2 % [facility] SERVICES Lymphocytes 14.9 % [facility] SERVICES Monocytes 12.1 % [facility] SERVICES Eosinophils 0.1 % [facility]OR[facility]ORY SERVICES Basophils 0.2 % [facility]ORATORY SERVICES Immature Grans 0.5 % [facility] LABORATORY SERVICES ABS Neutrophils 8.96 (H) 2.20 - 8.85 [facility] K/[facility] LABORATORY SERVICES ABS Lymphs 1.85 1.09 - 3.30 [facility] K/cm LABORATORY SERVICES ABS Monocytes 1.50 (H) 0.1 - 0.8 K/cmm [facility] LABORATORY SERVICES ABS Eosinophils 0.01 (L) 0.03 - 0.61 [facility] K/cm LABORATORY SERVICES ABS Basophils 0.02 0.01 - 0.11 [facility] K/m LABORATORY SERVICES ABS Immature Grans 0.06 0 - 0.06 [facility] Type of Diff: Automated [facility] LABORATORY SERVICES Specimen Blood Performing Organization Address [facility]/ZIP Code Phon e Number [facility] [address] [place] [address] SERVICES MAGNESIUM (06/14/2017 5:32 EDT) Pathologist Sig nature Magnesium 2.0 1.7 - 2.8 mg/dl [facility] LABORA TORY SERVICES Specimen Blood specimen (specimen) - Blood Performing Organization Address [facility] Phon e Number [facility] [address] [place] [address] SERVICES (ABNORMAL) ELECTROLYTES (06/14/2017 5:32 EDT) Pathologist Sig nature Sodium 133 (L) 136 - 145 mEq/L [facility] LABORA TORY SERVICES Potassium 3.6 3.5 - 5.0 mEq/L [facility] LABORA TORY SERVICES Chloride 91 (L) 96 - 110 mEq/L [facility] LABORAT ORY SERVICES CO2 31 22 - 32 mEq/L [facility] LABORATO RY SERVICES Specimen Blood specimen (specimen) - Blood Performing Organization Address [facility] Phon e Number [facility] [address] [place] [address] SERVICES (ABNORMAL) HEMAGRAM (06/14/2017 5:32 EDT) Pathologist Sig nature WBC 12.41 (H) 4.0 - 10.4 K/cmm [facility] LABORATORY SERVICES RBC 3.64 (L) 4.36 - 5.78 M/cmm [facility] LABORATORY SERVICES Hemoglobin 11.9 (L) 13.8 - 17.3 gm/dl [facility] LABORATORY SERVICES HCT 33.8 (L) 39.5 - 50.2 % [facility] LABORATORY SERVICES MCV 93 81 - 95 fl [facility] LABORATORY SERVICES MCH 32.7 27.6 - 33.0 pg [facility] LABORATORY SERVICES MCHC 35.2 32.8 - 36.4 gm/dl [facility] LABORATORY SERVICES RDW-CV 11.9 <14.2 % [facility] LABORATORY SERVICES RDW-SD 40.7 <46.0 fl [facility] LABORATORY SERVICES PLT 243 141 - 377 K/cmm [facility] LABORATORY SERVICES MPV 11.7 9.5 - 12.7 fl [facility] LABORATORY SERVICES Specimen Blood specimen (specimen) - Blood Performing Organization Address [facility] Phon e Number [facility] [address] [place] [address] SERVICES (ABNORMAL) CREATININE (06/14/2017 5:32 EDT) Creatinine 0.60 (L) 0.66 - 1.25 [facility] mg/dl LABORATORY SERVICES GFR, Calculated 105 >60 [facility] Comment: ml/min/1.73m2 LABORATORY eGFR calculated using CKD-EPI equation for SERVICES non Americans. Multiply eGFR by 1.16 for Americans. Specimen Blood specimen (specimen) - Blood Performing Organization Address [facility] Phon e Number [facility] [address] [place] [address] SERVICES INPATIENT ADD-ON (06/13/2017 15:00 EDT) Tests to be added PLEASE ADD ON [facility] HEMATOCRIT TO LABORATORY SERVICES PLEURAL FLUID OBTAINED TODAY (06/13). [place] [id number] [facility] problems LABORATORY SERVICES Accession number [id number]: [facility] Corrected on 06/13 LABORATORY SERVICES AT 1515: Previously reported as [id number] Specimen Other Performing Organization Address [facility] Phon e Number [facility] [address] [place] [address] SERVICES INPATIENT ADD-ON (06/13/2017 15:00 EDT) Tests to be added TOTAL PROTEIN,LDH [facility] [place] [id number] [facility] problems LABORATORY SERVICES Accession number [id number]: [facility] Corrected on 06/13 LABORATORY SERVICES AT 1502: Previously reported as [id number] Specimen Other Performing Organization Address [facility] Phon e Number [facility] [address] [place] [address] CHEST (PE) PROTOCOL W CONTRAST (06/13/2017 10:41 EDT) Anatomical Region Laterality Modality Other Specimen Narrative [facility] - 06/13/2017 11:23 EDT [...] City/State/ZIP Code Phon e Number [facility] RAD US DOPPLER LOWER EXTREMITY VENOUS BILATERAL (06/13/2017 10:20 EDT) Anatomical Region Laterality Modality Other Specimen Narrative [facility] RADIOLOGY MAIN CAMPUS - 06/13/2017 11:50 EDT [...] City/State/ZIP Code Phon e Number [facility] RADIOLOGY MAIN CAMPUS IR THORACENTESIS (06/13/2017 8:45 EDT) Anatomical Region Laterality Modality Other Specimen Narrative [facility] RADIOLOGY MAIN CAMPUS - 06/13/2017 10:51 EDT [...] sterile technique and under local anesthesia, a 8-Georgian thoracentesis catheter was advanced into the left [...] sterile technique and under local anesthesia, a 8-Georgian thoracentesis catheter was advanced into the left [...] the lab for analysis. Performing Organization Address [facility]/ZIP Code Phon e Number [facility] RADIOLOGY MAIN CAMPUS HEMATOCRIT, BODY FLUID (06/13/2017 8:26 EDT) Pathologist Sig nature Hematocrit,Body Fld <3.0 % [facility] LABORATORY SERVICES Specimen Pleural Fluid Performing Organization Address [facility] Phon e Number [facility] LABORATORY [address] [place] [address] SERVICES FLUID DIFFERENTIAL (06/13/2017 8:26 EDT) Neutrophils, Fluid 33 % [facility] LABORATORY SERVICES Lymphocytes, Fluid 50 % [facility] LABORATORY SERVICES Branch/Macro, Fluid 12 % [facility] LABORATORY SERVICES Mesothelial 5 % [facility] LABORATORY SERVICES Fluid Comment Rev'd by [facility] Pathologist LABORATORY SERVICES Specimen Pleural Fluid Performing Organization Address [facility] Phon e Number [facility] LABORATORY [address] [place] [address] SERVICES PH, PLEURAL FLUID (06/13/2017 8:26 EDT) Pleural Fluid pH 7.42 [facility] Comment: LABORATORY SERVICES Reference range: Pleural fluid Exudate: 7.30-7.45 Transudate: 7.40-7.55 A pleural fluid pH <7.30 is generally associated with a complicated parapneumonic effusion, empyema, connective tissue disease of the pleura or malignant effusion. Specimen Pleural Fluid Performing Organization Address [facility] Phon e Number [facility] LABORATORY [address] [place] [address] SERVICES BACTERIAL CULTURE/SMEAR, FLUID (06/13/2017 8:26 EDT) Gram Smear Result Polys [facility] present LABORATORY SERVICES Gram Smear Result No bacteria seen [facility] LABORATORY SERVICES Result No growth [facility] LABORATORY SERVICES Specimen FOSMIC - Pleural Fluid Performing Organization Address City/State/ZIP Code Phon e Number [facility] LABORATORY [address] [place] [address] SERVICES FLUID CELL COUNT (06/13/2017 8:26 EDT) RBC, Fluid 44,000 /cmm [facility] LABORATORY SERVICES Nucleated Cells 11,202 /cmm [facility] LABORATORY SERVICES Fluid Comment MODERATELY BLOODY, [facility] MODERATELY CLOUDY LABORATORY SERVICES Specimen Body fluid (substance) - Pleural Fluid Performing Organization Address City/[facility]/ZIP Code Phon e Number [facility] LABORATORY [address] [place] [address] SERVICES TOTAL PROTEIN, FLUID (06/13/2017 8:26 EDT) Protein, Fluid 5.2 g/dl [facility] Comment: LABORATORY SERVICES Reference Range: Pleural fluid specimen (specimen) Exudate > 3.0 g/dl Pleural fluid specimen (specimen) Transudate <3.0 g/dl Peritoneal fluid sample (specimen) Serum ascites to albumin gradient (SAGG) superior to total protein content in differentiating causes of effusion. Pleural fluid specimen (specimen) Specimen FOSCH - Pleural Fluid Performing Organization Address City/[facility]/ZIP Code Phon e Number [facility] LABORATORY [address] [place] [address] SERVICES LDH, FLUID (06/13/2017 8:26 EDT) Pathologist Sig nature LDH, Fluid 654 U/L [facility] Comment: LABORATORY SERVICES Pleural fluid specimen (specimen) Reference Range: Suggestive of exudate if fluid cholesterol is > 45 mg/dl or fluid LDH is greater than 0.45 times the upper limit of normal serum LDH levels. Peritoneal fluid sample (specimen) No reference range available Pleural fluid specimen (specimen) Specimen FOSCH - Pleural Fluid Performing Organization Address City/[facility]/ZIP Code Phon e Number [facility] LABORATORY [address] [place] [address] SERVICES GLUCOSE, FLUID (06/13/2017 8:26 EDT) Glucose, Fluid 88 mg/dl [facility] Comment: LABORATORY SERVICES Reference Range: Pleural fluid specimen (specimen) Low glucose is accepted as <60 mg/dl or pleural fluid to serum glucose ratio of <0.5. Peritoneal fluid sample (specimen) Low glucose is generally accepted as <50 mg/dl. Pleural fluid specimen (specimen) Specimen FOSCH - Pleural Fluid Performing Organization Address [facility] Phon e Number [facility] LABORATORY [address] [place] [address] SERVICES CREATININE, FLUID (06/13/2017 8:26 EDT) Creatinine, Fluid 0.57 mg/dl [facility] Comment: LABORATORY SERVICES Reference Range: Pleural fluid specimen (specimen) No reference range available Peritoneal fluid sample (specimen) No reference range available Drain device specimen (specimen) No reference range available Pleural fluid specimen (specimen) Specimen FOSCH - Pleural Fluid Performing Organization Address [facility] LABORATORY [address] [place] [address] SERVICES PROTEIN, TOTAL (06/13/2017 6:08 EDT) Pathologist Sig nature Total Protein 7.2 6.3 - 8.2 g/dl [facility] LABORATORY SERVICES Specimen Blood Performing Organization Address [facility] Phon [facility] LABORATORY [address] [place] [address] SERVICES LDH (06/13/2017 6:08 EDT) Pathologist Sig nature LDH 428 313 - 618 U/L [facility] LABORATO RY SERVICES Specimen Blood Performing Organization Address [facility] Phon e [facility] LABORATORY [address] [place] [address] SERVICES (ABNORMAL) MAGNESIUM (06/13/2017 6:08 EDT) Pathologist Sig nature Magnesium 1.4 (L) 1.7 - 2.8 mg/dl [facility] LABORA TORY SERVICES Specimen Blood specimen (specimen) - Blood Performing Organization Address [facility] LABORATORY [address] [place] [address] SERVICES (ABNORMAL) ELECTROLYTES (06/13/2017 6:08 EDT) Pathologist Sig nature Sodium 132 (L) 136 - 145 mEq/L [facility] LABORA TORY SERVICES Potassium 3.6 3.5 - 5.0 mEq/L [facility] LABORA TORY SERVICES Chloride 91 (L) 96 - 110 mEq/L [facility] LABORAT ORY SERVICES CO2 29 22 - 32 mEq/L [facility] LABORATO RY SERVICES Specimen Blood specimen (specimen) - Blood Performing Organization Address City/State/ZIP Code Phon e Number [facility] LABORATORY [address] [place] [id number] SERVICES (ABNORMAL) HEMAGRAM (06/13/2017 6:08 EDT) Pathologist Sig nature WBC 9.97 4.0 - 10.4 K/cmm [facility] LABORATORY SERVICES RBC 3.76 (L) 4.36 - 5.78 M/cmm [facility] LABORATORY SERVICES Hemoglobin 12.2 (L) 13.8 - 17.3 gm/dl [facility] LABORATORY SERVICES HCT 34.9 (L) 39.5 - 50.2 % [facility] LABORATORY SERVICES MCV 93 81 - 95 fl [facility] LABORATORY SERVICES MCH 32.4 27.6 - 33.0 pg [facility] LABORATORY SERVICES MCHC 35.0 32.8 - 36.4 gm/dl [facility] LABORATORY SERVICES RDW-CV 11.8 <14.2 % [facility] LABORATORY SERVICES RDW-SD 40.4 <46.0 fl [facility] LABORATORY SERVICES PLT 223 141 - 377 K/[facility] LABORATORY SERVICES MPV 11.9 9.5 - 12.7 fl [facility] LABORATORY SERVICES Specimen Blood specimen (specimen) - Blood Performing Organization Address City/[facility]/ZIP Code Phon e Number [facility] LABORATORY [address] [place] [address] SERVICES (ABNORMAL) CREATININE (06/13/2017 6:08 EDT) Creatinine 0.58 (L) 0.66 - 1.25 [facility] mg/dl LABORATORY SERVICES GFR, Calculated 106 >60 [facility] Comment: ml/min/1.73m2 LABORATORY eGFR calculated using CKD-EPI equation for SERVICES non Americans. Multiply eGFR by 1.16 for Americans. Specimen Blood specimen (specimen) - Blood Performing Organization Address City/State/ZIP Code Phon e Number [facility] LABORATORY [address] [place] [address] SERVICES (ABNORMAL) PROTIME (06/13/2017 6:08 EDT) Pro Time 14.0 (H)Comment: NOTE 10.3 - 13.4 [facility] NEW REFERENCE RANGE secs LABORATORY SERVICE S OF APR 03 2017 I.N.R. 1.2 (H) 0.9 - 1.1 [facility] Comment: Ratio LABORATORY SERVICES Moderate Intensity Coumadin INR = 2.0-3.0 Adjustments in anticoagulant therapy dose should be based upon the INR and NOT the Pro Time. Specimen Blood specimen (specimen) - Blood Performing Organization Address [facility] Phon e Number [facility] LABORATORY [address] [place] [address] SERVICES BACTERIAL CULTURE, BLOOD (06/12/2017 22:47 EDT) Pathologist Sig nature Result No growth [facility] LABORATOR Y SERVICES Specimen Blood specimen (specimen) - Blood Performing Organization Address [facility] Phon e Number [facility] LABORATORY [address] [place] [address] SERVICES (ABNORMAL) D-DIMER (06/12/2017 22:40 EDT) Pathologist Sig nature D-Dimer 724 (H) <230 ng/mL [facility] Comment: LABORATORY SERVICES CUTOFF VALUE FOR THE EXCLUSION OF DVT and PE: 230 ng/m L D-dimer units Any use of the age-adjusted cutoff value is a post-analytic modification of this FDA-approved test and is considered off-label use of the test result. [facility] laboratory does not have literature to support the validity of an age-adjusted cutoff for our specific assay. Specimen Blood specimen (specimen) - Blood Performing Organization Address [facility] Phon e Number [facility] LABORATORY [address] [place] [address] SERVICES BACTERIAL CULTURE, BLOOD (06/12/2017 22:40 EDT) Pathologist Sig nature Result No growth [facility] LABORATOR Y SERVICES Specimen Blood specimen (specimen) - Blood Performing Organization Address [facility] Phon e Number [facility] LABORATORY [address] [place] [address] SERVICES INPATIENT ADD-ON (06/12/2017 21:30 EDT) Pathologist Sig nature Tests to be added NT PRO BNP [facility] LABORATORY SERVICES Number for problems Not Given [facility] LABORATORY SERVICES Accession number [id number] [facility] LABORATORY SERVICES Specimen Other Performing Organization Address [facility] Phon e Number [facility] LABORATORY [address] [place] [address] SERVICES CHEST PA AND LATERAL (06/12/2017 20:56 EDT) Anatomical Region Laterality Modality Other Specimen Narrative [facility] RADIOLOGY MAIN CAMPUS - 06/12/2017 21:12 EDT [...] City/State/ZIP Code Phon e Number [facility] RADIOLOGY MAIN CAMPUS INPATIENT ADD-ON (06/12/2017 19:20 EDT) Tests to be added HIGH SENSITIVITY CRP [facility] [place] [id number] [facility] problems LABORATORY SERVICES Accession number [id number] [facility] LABORATORY SERVICES Specimen Other Performing Organization Address City/State/ZIP Code Phon e Number [facility] LABORATORY [address] [place] [address] SERVICES (ABNORMAL) NT PRO BNP (06/12/2017 18:37 EDT) Pathologist Sig nature NT Pro BNP 1,380 (H) <300 pg/ml [facility] Comment: LABORATORY SERVICES Reference Range: NT-proBNP values [...] congestive failure. Specimen Blood Performing Organization Address City/[facility]/ZIP [facility] Phon e Number [facility] LABORATORY [address] [place] [address] SERVICES HIGH SENSITIVITY C-REACTIVE PROTEIN (CARDIOVASCULAR DISEASE) (06/12/2017 18:37 EDT) High Sensitivity 83.3 mg/L [facility] CRP Comment: LABORATORY Reference Range: SERVICES <1.0 mg/L Low risk 1.0-3.0 mg/L Average risk >3.0 mg/L High risk >10.0 mg/L Acute inflammation Specimen Blood Performing Organization Address City/State/ZIP Code Phon e Number [facility] LABORATORY [address] [place] [address] SERVICES TROPONIN I (06/12/2017 18:37 EDT) Pathologist Sig nature Troponin I (ng/mL) <0.034 <0.034 ng/ml [facility] LABORATORY SERVICES Specimen Blood specimen (specimen) - Blood Performing Organization Address City/[facility]/ZIP [facility] Phon e Number [facility] LABORATORY [address] [place] [address] SERVICES (ABNORMAL) HEMAGRAM (06/12/2017 18:37 EDT) Pathologist Sig nature WBC 17.10 (H) 4.0 - 10.4 K/cmm [facility] LABORATORY SERVICES RBC 3.70 (L) 4.36 - 5.78 M/cmm [facility] LABORATORY SERVICES Hemoglobin 12.2 (L) 13.8 - 17.3 gm/dl [facility] LABORATORY SERVICES HCT 34.1 (L) 39.5 - 50.2 % [facility] LABORATORY SERVICES MCV 92 81 - 95 fl [facility] LABORATORY SERVICES MCH 33.0 27.6 - 33.0 pg [facility] LABORATORY SERVICES MCHC 35.8 32.8 - 36.4 gm/dl [facility] LABORATORY SERVICES RDW-CV 11.6 <14.2 % [facility] LABORATORY SERVICES RDW-SD 39.4 <46.0 fl [facility] LABORATORY SERVICES PLT 206 141 - 377 K/cmm [facility] LABORATORY SERVICES MPV 12.3 9.5 - 12.7 fl [facility] LABORATORY SERVICES Specimen Blood specimen (specimen) - Blood Performing Organization Address [facility]/ZIP Code Phon e Number [facility] LABORATORY [address] [place] [address] SERVICES BUN (06/12/2017 18:37 EDT) Pathologist Sig nature BUN 10 10 - 26 mg/dl [facility] LABORATO RY SERVICES Specimen Blood specimen (specimen) - Blood Performing Organization Address [facility] Phon e Number [facility] LABORATORY [address] [place] [address] SERVICES (ABNORMAL) ELECTROLYTES (06/12/2017 18:37 EDT) Pathologist Sig nature Sodium 129 (L) 136 - 145 mEq/L [facility] LABORA TORY SERVICES Potassium 3.4 (L) 3.5 - 5.0 mEq/L [facility] LABORA TORY SERVICES Chloride 91 (L) 96 - 110 mEq/L [facility] LABORAT ORY SERVICES CO2 27 22 - 32 mEq/L [facility] LABORATO RY SERVICES Specimen Blood specimen (specimen) - Blood Performing Organization Address [facility] Phon e Number [facility] LABORATORY [address] [place] [address] SERVICES (ABNORMAL) CREATININE (06/12/2017 18:37 EDT) Creatinine 0.54 (L) 0.66 - 1.25 [facility] mg/dl LABORATORY SERVICES GFR, Calculated 109 >60 [facility] Comment: ml/min/1.73m2 LABORATORY eGFR calculated using CKD-EPI equation for SERVICES non Americans. Multiply eGFR by 1.16 for Americans. Specimen Blood specimen (specimen) - Blood Performing Organization Address [facility] Phon e Number [facility] LABORATORY [address] [place] [address] SERVICES EKG 12-LEAD (06/12/2017 18:27 EDT) Specimen Narrative [facility] EKG - 06/29/2017 15:5 7 EDT ? [facility] ? Test Date: ?2017-06-12 Pat Name: ? DAVID FARFAN ?Department: ?? Subha 5 ? Room: ? ME505 Gender: ? Male ? Phlebotomy Tech: ?? [id number] : ?1950 ? Requested By: GISELA Dunn Order Number: [id number] ? Reading MD: ?? SENG PERSON SA MD ? Measurements Intervals ?[place] ? Rate: ? 120 ?P: ?165 UT: ? 235 ?QRS: ?-22 QRSD: ? 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
--- OUTSIDE RECORDS SUMMARY | 2021-12-14 01:07 | XMS_ITS | Encounter Summary ---
:1950 Author Organization [facility] Address [address] [place] [address] Care Team Providers Name Role Phone Katia Stone PA-C Primary Care Provider Reason for Visit Reason Onset Date Comments Other 08/15/2017 Returning Call 08/15/2017 To Belinda Encounter Details Date Type Department Care Team Description 08/15/2017 Telephone [facility] Dileep, [place]; Re turning Call Cardiology - Chaitanya Trevino RN (To Belinda) [address] [place], [place] [address] Social History Tobacco Use [...] - 08/15/2017 1243 EDT Spoke with Yessica (insurance healthcare representative at PCP) in regards to patient Tim [...] Yessica patient needs to follow-up with primary ticketing agent in [place] Dr. Torres.Per Yessica patient has not seen Dr. Torres since before his first admission to [facility] on 04/30/17. Mentioned to Yessica, patient needs to be following up with PCP and primary ticketing agent. Yessica expressed understanding and will reach out to Dr. Torres's office at [facility]. Discharge summaries and last OV note [...] reach by phone. Left detailed message, patientis [place] patient and no showed for visit with Dr. Rosenberg on 08/06. Instructed Yessica to reach out [facility] where his primary ticketing agent is established on voice mail. documented in this encounter Plan of Treatment Not on filedocumented as of this encounter Visit Diagnoses Not on filedocumented in this encounter Care Teams Production Lead Relationship Specialty Start Date End Date Katia Stone PA-C PCP - General 05/02/17 [address] [place] [phone] documented as of this encounter
--- OUTSIDE RECORDS SUMMARY | 2021-12-14 01:07 | XMS_ITS | Encounter Summary ---
:1950 Author Organization [facility] Address [address] [place] [address] Care Team Providers Name Role Phone Katia Stone PA-C Primary Care Provider Reason for Visit Reason Comments Shortness of Breath Encounter Details Date Type Department Care Team Description 06/11/2017 Office Visit [facility] Tony Rosenberg ([facility] of Cardiology - Nicolasa Jasmine MD breath) (Primary Dx) [address] [address] [address] [place] [address] Social History Tobacco Use Types [...] Rosenberg MD - 06/11/2017 0000 EDT [facility] CARDIOLOGY - [place] PROGRESS / FOLLOWUP NOTE - 06/11/2017 PROBLEM LIST: 1. Third-degree heart block. a. Status post dual chamber pacemaker insertion. b. Pericardial effusion. c. Pacemaker generator lead repositioning and pericardiocentesis. 2. Large pleural effusions. 3. Hypertension. 4. Hyponatremia. SUBJECTIVE: Mr Mera was seen at the [facility] after his recent hospitalization at the [facility] for AV block. He had [...] substantial bilateral pleural effusions. Echocardiogram done in [facility] shows preserved LV systolic [...] Mr Mera to be admitted to the [facility] tomorrow for bilateral thoracentesis. Tony Rosenberg MD 03 51 PM - Tony Rosenberg MD ln Dictation ID: [id number] cc: Shailesh Torres MD, [address] [address] Katia Mccallum PA-C, [place] [address] [address] [place] [address] documented in this encounter Plan of Treatment Not on filedocumented as of this encounter Visit Diagnoses Diagnosis SOB (shortness of breath) - Primary Shortness of breath documented in this encounter Care Teams Patient Account Analyst Relationship Specialty Start Date End Date Katia Stone PA-C PCP - General 05/02/[address] [place] [address] [address] [phone] documented as of this encounter
--- OUTSIDE RECORDS SUMMARY | 2021-12-14 01:07 | XMS_ITS | Encounter Summary ---
:1950 Author Organization [facility] Address [address] [place] [address] Care Team Providers Name Role Phone Katia Stone PA-C Primary Care Provider Reason for Visit Reason Onset Date Comments Other 07/16/2017 Encounter Details Date Type Department Care Team Description 07/16/2017 Telephone [facility] Caitie Atwood NP Other Cardiology - [address] [place], [place] [address] [address] [place], [place] [address] (Wo rk) Social History [...] Encounter - Caitie Atwood NP - 07/16/2017 2898 EDT I spoke to the certified social workers in health care at the [place] primary care offices. There following the patient. [...] on filedocumented in this encounter Care Teams Serology Technician Relationship Specialty Start Date End Date Katia Stone, PABijalC PCP - General 05/02/17 [address] [place] [phone] documented as of this encounter
--- OUTSIDE RECORDS SUMMARY | 2021-12-14 01:07 | XMS_ITS | Encounter Summary ---
:1950 Author Organization [facility] Address [address] [place] [address] Care Team Providers Name Role Phone Katia Stone PA-C Primary Care Provider Reason for Referral Follow Up (3 - 10 Business Days) - New Request Specialty Diagnoses / Procedures Referred By Contact Refer red To Contact Diagnoses Hyponatremia Pericardial effusion Heart block Acute on chronic diastolic congestive heart failure (HCC-CMS) ([facility]) Acute pericarditis, unspecified type Vini Mathis MD Belden, Katelyn D, MINGO [address] [place] [address] [address] [address] [place] [phone] Fax: Referral ID Status Reason Start Expiration Visits Visits Date Date Requested Authorized [id number] New Request Continuity of 05/27/2017 1 1 Care Question Answer Reason for Request: post hosp f/u visit Reason for Visit Reason Comments Chest Pain Patient arrives as transfer from [facility] for pleuritic chest pain and new diagnosis CHF after pacemaker placement at [facility] two weeks ago. Dyspnea with exertion, breat h sounds course crackles. Alert and oriented. Encounter Details Date Type Department Care Team Description 05/20/2017 - [facility] Laly Kim MD [address] [facility], Level 1 [place] [id number] Hyponatremia (Primary Dx); 05/27/2017 Encounter Cardiac/Telemetry Akash Reyes MD [address] [phone] Pericardial effusion; Andres Gayle MD [address] [address] Heart block; [address] [place] [address] Tony Flores MD [address] [place] [address] Acute on chronic diastolic congestive he art failure (CMS-HCC) ([facility]); [place], [place] Seng Brody Sa, MD [address] [address] Acute pericarditis, unspecified type [address] [...] Acute on chronic diastolic congestive heart failure ([facility]) 05/01/2017 05/27/2017 Hospital Course David Mera is [...] amlodipine and chlorthalidone. ?? He presented to [facility] ED 05/20 with orthopnea and cough, and CT chest showed pericardial effusion. He was transferred to [facility] ED for pericardiocentesis. In the ED [...] Component Value Units Date/Time Respiratory Virus Detection [[id number]] Collected: 05/26/17 1157 Lab Status: Preliminary result Specimen: Nasopharynx Updated: 05/27/17 1425 Result No RSV, Influenza A, or Influenza B detected by PCR Result No Metapneumovirus detected by PCR. Result Delay in some virus(es) result(s), testing being repeated and/or confirmed. Anaerobe Culture/Smear (inc. aerobes), Fluid [[id number]] Collected: 05/23/17 0747 Lab Status: Preliminary result Specimen: FOSMIC from Pericardial Fluid Updated: 05/25/17 1146 Gram Smear Result Few Polys No bacteria seen Result No growth Fungus Culture/Smear, Other [[id number]] Collected: 05/23/17 0747 Lab Status: Preliminary result [...] 05/01/2017 Discharge Follow Up Appointments Scheduled with [facility] Upcoming Appointments Jun 04, 2017 16:00 EDT Post Hospital Visit with Tony Rosenberg MD [facility] Cardiology [facility] (--) [address] [place] [address] Appointments Outside of [facility] We Will Schedule Follow-up appointments and procedures Amb Consult/Follow Up Primary Care Physician Reason for Request: post hosp f/u visit Authorizing Provider: Vini Mathis MD Additional Information: Cardiology follow up FriJune 04, 2017 at [address] Justin Rosenberg at the [facility]. You should be notified of appointment time. If you do not head by FriJune 01, please call [phone] to find out the time. Cardiology follow up on June 16, 2017 at 2:[address] Torres at the [facility] has previously scheduled. Clinic number [id number] Studies We Will Schedule Follow-up labs and [...] Vini Mathis MD Internal Medicine PGY-1 Pager: [phone] 05/27/2017 20:52 Associated attestation - Seng Brody Sa, MD - 05/30/2017 1206 EDT Attending Attestation: I saw and evaluated the patient 05/27. I discussed the case with the resident/QUALIFICATIONS EXAMINER/fellow and agree with the findings and plan as documented above. Seng person Sa, MD Cardiac Electrophysiology documented in this encounter Discharge Instructions AppointmentsHamceci-Coleen Gr NP - 05/27/2017 10:25 EDT Cardiology follow up FriJune 04, 2017 at [address] Justin Rosenberg at the [facility]. You should be notified of appointment time. If you do not head by FriJune 01, please call [phone] to find out the time. Cardiology follow up on June 16, 2017 at 2:[address] Torres at the [facility] has previously scheduled. Clinic number [id number] Discharge Instr - Other Melida Mas RN [...] through Care Everywhere. HEART FAILURE: AVOIDING TRIGGERS (BAHRAINI)documented in this encounter Medications at Time of [...] knees MSK: Normal bulk and tone. 5/5 video engineer strength SKIN: No lesions, bruises, or rashes [...] initially hypertensive, but now normo-hypotensive. - Holding COLLET MAKING MACHINE OPERATOR lisinopril ?? Chronic diastolic heart failure: Volume [...] 05/26/17. I discussed the case with the resident/QUALIFICATIONS EXAMINER/fellow and agree with the findings and plan [...] knees MSK: Normal bulk and tone. 5/5 video engineer strength SKIN: No lesions, bruises, or rashes [...] initially hypertensive, but now normo-hypotensive. - Holding COLLET MAKING MACHINE OPERATOR lisinopril ?? Chronic diastolic heart failure: currently [...] knees MSK: Normal bulk and tone. 5/5 video engineer strength SKIN: No lesions, bruises, or rashes [...] initially hypertensive, but now normo-hypotensive. - Holding COLLET MAKING MACHINE OPERATOR lisinopril ?? Chronic diastolic heart failure: currently [...] Landry M.D., PGY-1 Internal Medicine Resident Pager [phone] 05/24/2017 10:04 Attestation statement: Supervising Physician I [...] knees MSK: Normal bulk and tone. 5/5 video engineer strength SKIN: No lesions, bruises, or rashes [...] initially hypertensive, but now normo-hypotensive. - Holding COLLET MAKING MACHINE OPERATOR lisinopril ?? Chronic diastolic heart failure: currently [...] Landry M.D., PGY-1 Internal Medicine Resident Pager [phone] 05/23/2017 9:11 Attestation statement: Supervising Physician. I [...] knees MSK: Normal bulk and tone. 5/5 video engineer strength SKIN: No lesions, bruises, or rashes [...] initially hypertensive, but now normo-hypotensive. - Holding COLLET MAKING MACHINE OPERATOR lisinopril ?? Chronic diastolic heart failure: currently volume overloaded. Needs diuresis, cautious in setting ofnormotension. - Holding Lasix/chlorthalidone - Torsemide 10 mg PO as aobve - Strict I&O - 1.5 L fluid restriction as above - Daily weights - Daily BUN, Cr VTE Prophylaxis Held d/t bloody pericentesis drain Discharge Plan Uncertain at this time Jayne Landry M.D., PGY-1 Internal Medicine Resident Pager [phone] 05/22/2017 8:50 Attestation statement: I saw and [...] Chart: Yes, previous copy on file @ [facility] DIRECTIVES FOR FINANCES: TRANSPORTATION: Transportation: Family CULTURAL, BUDDHIST and/or LANGUAGE factors affecting health care/discharge planning: [...] AID - [address] - [place], [place] - [address] [facility] [address] [facility] - [place], [place] - [address] [facility] [address] [facility] [id number] Home Health: Other: POST HOSPITAL TRANSITION PLAN: Plan d/c to his son, Catarina, house in [place] Desi Villatoro RN 05/21/2017 13:12 Desi Villatoro RN - 05/21/2017 0963 EDT 05/21: Met with patient. Dr. Rosenberg is at the bedside. Plan will be pericardiocentesis and reposition of pacer lead. I will follow up with patient later today. Desi Villatoro RN [id number] YTJayne Landry MD - 05/21/2017 0747 [...] knees MSK: Normal bulk and tone. 5/5 video engineer strength SKIN: No lesions, bruises, or rashes [...] will hold lisinopril for now. - Holding COLLET MAKING MACHINE OPERATOR lisinopril ?? Chronic diastolic heart failure: currently volume overloaded. Needs diuresis after resolution of pericardial effusion. - Holding Lasix/chlorthalidone in setting of pericardial effusion - Strict I&O - 1.2 L fluid restriction as above - Daily weights - Daily BUN, Cr VTE Prophylaxis Held pending pericardiocentesis Discharge Plan Uncertain at this time Jayne Landry M.D., PGY-1 Internal Medicine Resident Pager [phone] 05/21/2017 8:01 Ester Dobbins MD - 05/21/2017 0640 EDT PATIENT CONSENT TO CARDIOVASCULAR CATHETERIZATION OR INTERVENTION: Ester Bran MD, have explained the risks and benefits of cardiac catheterization and/or intervention to the patient (or responsible democrat) and have answered the patient's (or responsible democrat's) questions. To the best of my knowledge, the patient (or responsible democrat) has been adequately informed. The patient (or responsible democrat) has consented to the interventional cardiac procedure. As part of the consent we reviewed that, like surgical procedures, interventional procedures require aggressive short term support to determine the potential benefits of the procedures. For this reason, the patient (or responsible democrat) has agreed to remain FULL CODE for a minimum of 48 hours after theprocedure. Ester Dobbins MD Advanced Manufacturing Vice President PGY-5 05/20/2017 23:30 documented in this encounter [...] smoker, 1-2 beers 1-2x/week, lives alone in [place] Allergies: Reviewed No Known Allergies Exam: General [...] will hold lisinopril for now. - Holding COLLET MAKING MACHINE OPERATOR lisinopril Chronic diastolic heart failure: with some [...] thiazide diuretics Vladimir Crowe MD FACP Transplant Set And Exhibit Designer Contracting Executive of Transplant Programs 05/25/2017 11:46 Vladimir mckeon [...] the assessment and plan. Vladimir Crowe MD [facility] Transplant Set And Exhibit Designer Contracting Executive of Transplant Programs 05/24/2017 12:32 Elliot Stubbs [...] TIME. PT IN ER ROOM 8, ON BLOCK CHOPPER HAND, NIBP, AND SPO2, ASSESSMENT NOTED, Tony Palma - 05/20/20177 EDT Blood drawn via saline lock per protocol, tiger tube(s) sent to lab per order. Laly Kim MD - 05/20/20174 EDT DOS: 05/20/2017 Chief Complaint Patient presents with ??? Chest Pain Patient arrives as transfer from [facility] for pleuritic chest pain and new diagnosis CHF after pacemaker placement at [facility] two weeks ago. Dyspnea with exertion, breath sounds course crackles.Alert and oriented. HPI HPI Comments: I, Deana Bingham, am scribing for Laly Kim, * while he/she is personally performing the service. Deana Hernándezsharla 05/20/2017 22:25 David Mera is a 66 y.o. male with a history of heart block AV third degree, HTN, acute on chronicCHF, who presents as a transfer from [place] with pericardial effusion. Pt had pacemaker placed [...] appears to be a good tracing. Attending laborer powerhouse not available for acute interpretation. Radiology orders: [...] for problems Not Given Final Accession number [id number] Final CREATININE, URINE RANDOM SODIUM, URINE RANDOM [...] of admission: 0 (). PCP: Katia Mccallum [facility] Number of Diagnoses or Management Options [...] RN 05/26/2017 5:49 lan of Care - Rpuert Earl RN - 05/25/2017 1452 EDT Problem: [...] Care - Sigrid Gordon, TISH - 05/25/2017 0536 EDT Problem: Daily Care Plan Goals [...] Care - Cici Tapia RN - 05/24/2017 2097 EDT Problem: Daily Care Plan Goals Goal: [...] Ottoniel - Rox Valdivia, TISH - 05/21/2017 5106 EDT Problem: Daily Care Plan Goals Goal: [...] SOB and pleuritic chest pain. Transferred from [facility]. Dx of peridcardial effusion, HTN, CHF, [...] EKG 12-LEAD (05/27/2017 7:37 EDT) Specimen Narrative [facility] EKG - 06/01/2017 12:4 1 EDT ? [facility] ? Test Date: ?2017-05-27 Pat Name: ? DAVID MERA ?Department: ?? [facility] 5 ? Room: ? MW531 Gender: ? M ?Methods Specialist Engineer: ?? [id number] : ?1950 ? Requested By: PRADIP MONET Order Number: [id number] ? Reading MD: ?? PIERRE RUBIO MD ? Measurements Intervals ?[place] ? Rate: ? 69 ? P: ?23 ME: ? 175 ?QRS: ?-58 QRSD: ? 193 [...] Date: 2017-05-27 Pat Name: DAVID MERA Department: [place] [address] Room: 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: [id number] : 1950 Requested By: PRADIP MANNING Order Number: [id number] Reading MD: Irish RUBIO MD Measurements Intervals [place] Rate: 69 P: 23 ME: 175 QRS: -58 QRSD: 193 T: 189 QT: 528 QTc: 568 Interpretive Statements SINUS RHYTHM WITH ATRIAL TRACKING and VE NTRICULAR PACING Compared to ECG 05/26/2017 07:29:50 No significant changes I reviewed the tracing and have either a greed or edited the findings in this report. Electronically Signed On 12:41:22 EDT by PIERRE RUBIO MD. Performing Organization Address City/[facility] Code Phon e Number [facility] EKG (ABNORMAL) ELECTROLYTES (05/27/2017 5:57 EDT) Pathologist Sig nature Sodium 129 (L) 136 - 145 mEq/L [facility] LABORA TORY SERVICES Potassium 3.9 3.5 - 5.0 mEq/L [facility] LABORA TORY SERVICES Chloride 87 (L) 96 - 110 mEq/L [facility] LABORAT ORY SERVICES CO2 33 (H) 22 - 32 mEq/L [facility] LABORATO RY SERVICES Specimen Blood specimen (specimen) - Blood Performing Organization Address City/[facility] Phon e Number [facility] LABORATORY [address] [place] [address] SERVICES BUN (05/27/2017 5:57 EDT) Pathologist Sig nature BUN 13 10 - 26 mg/dl [facility] LABORATO RY SERVICES Specimen Blood specimen (specimen) - Blood Performing Organization Address City/State/ZIP Code Phon e Number [facility] LABORATORY [address] [place] [address] SERVICES MAGNESIUM (05/27/2017 5:57 EDT) Pathologist Sig nature Magnesium 1.9 1.7 - 2.8 mg/dl [facility] LABORA TORY SERVICES Specimen Blood specimen (specimen) - Blood Performing Organization Address City/State/ZIP Code Phon e Number [facility] LABORATORY [address] [place] [phone] SERVICES (ABNORMAL) CREATININE (05/27/2017 5:57 EDT) Creatinine 0.63 (L) 0.66 - 1.25 [facility] mg/dl LABORATORY SERVICES GFR, Calculated 103 >60 [facility] Comment: ml/min/1.73m2 LABORATORY eGFR calculated using CKD-EPI equation for SERVICES non Americans. Multiply eGFR by 1.16 for Americans. Specimen Blood specimen (specimen) - Blood Performing Organization Address City/State/ZIP Code Phon e Number [facility] LABORATORY [address] [place] [address] SERVICES (ABNORMAL) HEMAGRAM (05/27/2017 5:57 EDT) Pathologist Sig nature WBC 6.74 4.0 - 10.4 K/cmm [facility] LABORATORY SERVICES RBC 3.43 (L) 4.36 - 5.78 M/cmm [facility] LABORATORY SERVICES Hemoglobin 11.3 (L) 13.8 - 17.3 gm/dl [facility] LABORATORY SERVICES HCT 32.2 (L) 39.5 - 50.2 % [facility] LABORATORY SERVICES MCV 94 81 - 95 fl [facility] LABORATORY SERVICES MCH 32.9 27.6 - 33.0 pg [facility] LABORATORY SERVICES MCHC 35.1 32.8 - 36.4 gm/dl [facility] LABORATORY SERVICES RDW-CV 11.3 <14.2 % [facility] LABORATORY SERVICES RDW-SD 38.4 <46.0 fl [facility] LABORATORY SERVICES PLT 308 141 - 377 K/cmm [facility] LABORATORY SERVICES MPV 10.4 9.5 - 12.7 fl [facility] LABORATORY SERVICES Specimen Blood specimen (specimen) - Blood Performing Organization Address [facility] Phon e Number [facility] LABORATORY [address] [place] [address] SERVICES (ABNORMAL) NT PRO BNP (05/26/2017 17:55 EDT) Pathologist Sig nature NT Pro BNP 2,710 (H) <300 pg/ml [facility] Comment: LABORATORY SERVICES Slight hemolysis Results [...] specimen (specimen) - Blood Performing Organization Address [facility] Phon e Number [facility] LABORATORY [address] [place] [address] SERVICES (ABNORMAL) ELECTROLYTES (05/26/2017 17:55 EDT) Pathologist Sig nature Sodium 129 (L)Comment: 136 - 145 mEq/L [facility] Slight hemolysis LABORATORY SERVICES Potassium 4.0 3.5 - 5.0 mEq/L [facility] Comment: LABORATORY SERVICES Slight hemolysis Hemolysis may elevate potassium result. Chloride 84 (L)Comment: 96 - 110 mEq/L [facility] Slight hemolysis LABORATORY SERVICES CO2 35 (H)Comment: 22 - 32 mEq/L [facility] Slight hemolysis LABORATORY SERVICES Specimen Blood specimen (specimen) - Blood Performing Organization Address [facility] Phon e Number [facility] LABORATORY [address] [place] [address] SERVICES INPATIENT ADD-ON (05/26/2017 15:20 EDT) Tests to be added BNP [facility] [place] [id number] [facility] problems LABORATORY SERVICES Accession number CALLED M5 WITH [facility] INABILITY TO LABORATORY SERVICES PERFORM ADD ON DUE TO NO SUITABLE SAMPLE [id number] JR Specimen Other Performing Organization Address City/State/ZIP Code Phon e Number [facility] LABORATORY [address] [place] [address] SERVICES LEGIONELLA ANTIGEN DETECTION, URINE (05/26/2017 14:04 EDT) Pathologist Sig nature Result No Legionella [facility] pneumophila serogroup LABORATORY SERVICES 1 antigen detected. Specimen Other (qualifier value) - Urine Performing Organization Address City/[facility]/ZIP Code Phon e Number [facility] LABORATORY [address] [place] [address] SERVICES STREPTOCOCCUS PNEUMONIAE ANTIGEN, URINE (05/26/2017 14:04 EDT) Pathologist Sig nature Result No Strep pneumoniae [facility] antigen detected. LABORATORY SERVICES Specimen Other (qualifier value) - Urine Performing Organization Address City/[facility]/ZIP Code Phon e Number [facility] LABORATORY [address] [place] [address] SERVICES CHEST PA AND LATERAL (05/26/2017 12:30 EDT) Anatomical Region Laterality Modality Other Specimen Narrative [facility] RADIOLOGY MAIN CAMPUS - 05/26/2017 14:17 [...] Address City/State/ZIP Code Phon e Number [facility] RADIOLOGY MAIN CAMPUS BACTERIAL CULTURE/SMEAR, RESPIRATORY (05/26/2017 12:14 EDT) Gram Smear Result [facility] Polys LABORATORY SERVICES Gram Smear Result [facility] Squamous epithelial cells LABORATORY SERVICES Gram Smear Result [facility] Mixed gram positive and gram negative organisms LABORATORY SERVICES Gram Smear Result Smear suggests contamination with saliva. ??Please submit additional specimen if clinically [facility] indicated. LABORATORY SERVICES Result See gram smear [facility] results. LABORATORY SERVICES Result Credit Issued [facility] LABORATORY SERVICES Specimen Other (qualifier value) - Sputum Performing Organization Address City/State/ZIP Code Phon e Number [facility] LABORATORY [address] [place] [address] SERVICES RESPIRATORY VIRUS DETECTION (05/26/2017 11:57 EDT) Result No RSV, Influenza A, or [facility] Influenza B detected by LABORATORY SERVIC ES PCR Result No Metapneumovirus [facility] detected by PCR. LABORATORY SERVICES Result No Parainfluenza Virus Type 1,2 or 3 detected by PCR. This assay may have decrease sensitivity [facility] for Parainfluenza Virus Type 3. LABORATOR Y SERVICES Specimen Nasopharynx Performing Organization Address City/State/ZIP Code Phon e Number [facility] LABORATORY [address] [place] [address] SERVICES ECHOCARDIOGRAM LIMITED (05/26/2017 11:16 EDT) Specimen Narrative [facility] CARDIOLOGY MAIN CAMPU S - 05/26/2017 11:25 EDT *Interpreting Group:* *[facility] Cardiology* [address] [place] [address] Date of study: 05/26/2017 Transthoracic Echocardiography M-mode, [...] Rosenberg MD ORDERING ?Tony Rosenberg MD PERFORMING ??[facility], REFERRING ?? Katia Mccallum *PROCEDURE DATA* Procedure information: ??The patient was identified by two identifiers. This study was interpreted by [facility]. Pertinent images and digital data [...] Andrade MD - 05/26/2017 *Interpreting Group:* *[facility] Cardiology* [address] [place] [address] Date of study: 05/26/2017 Transthoracic Echocardiography M-mode, [...] Rosenberg MD ORDERING Tony Rosenberg MD PERFORMING [facility], Ip REFERRING Katia Mccallum *PROCEDURE DATA* Procedure information: The patient was i dentified by two identifiers. This study was interpreted by [facility]. Pertinent images and digital data [...] Address City/State/ZIP Code Phon e Number [facility] CARDIOLOGY MAIN CAMPUS EKG 12-LEAD (05/26/2017 7:29 EDT) Specimen Narrative [facility] EKG - 05/27/2017 13:1 8 EDT ? [facility] ? Test Date: ?2017-05-26 Pat Name: ? DAVID MERA ?Department: ?? JAME Chao ? Room: ? MW531 Gender: ? M ?Methods Specialist Engineer: ?? [id number] : ?1950 ? Requested By: PRADIP MONET Order Number: [id number] ? Martha OAKES: ?? LALY DELA RCUZ MD ? Measurements Intervals ?[place] ? Rate: ? 73 ? P: ? ME: ? 0 ?QRS: ?-45 QRSD: ? 192 [...] Laly Dela Cruz MD - 05/27/2017 [facility] Test Date: 2017-05-26 Pat Name: DAVID ADOLPH Department: BUD Chao Room: 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: [id number] : 1950 Requested By: PRADIP MANNING Order Number: [id number] Reading MD: Elsa DELA CRUZ MD Measurements Intervals [place] Rate: 73 P: ME: 0 QRS: -45 QRSD: 192 T: 176 QT: 536 QTc: 594 Interpretive Statements ELECTRONIC VENTRICULAR PACEMAKER ABNORMAL RHYTHM ECG Automated Interpretation. Provider Inter pretation to follow. Compared to ECG 05/25/2017 07:40:16 No significant changes I reviewed the tracing and have either a greed or edited the findings in this report. Electronically Signed On 13:18:21 EDT by LALY DELA CRUZ MD. Performing Organization Address [facility] Code [facility] EKG (ABNORMAL) ELECTROLYTES (05/26/2017 5:57 EDT) Pathologist Sig nature Sodium 128 (L) 136 - 145 mEq/L [facility] LABORA TORY SERVICES Potassium 3.7 3.5 - 5.0 mEq/L [facility] Chloride 85 (L) 96 - 110 mEq/L [facility] CO2 35 (H) 22 - 32 mEq/L [facility] Specimen Blood specimen (specimen) - Blood Performing Organization Address [facility] LABORATORY [address] [place] [address] SERVICES (ABNORMAL) BUN (05/26/2017 5:57 EDT) Pathologist Sig nature BUN 9 (L) 10 - 26 mg/dl [facility] Specimen Blood specimen (specimen) - Blood Performing Organization Address [facility] LABORATORY [address] [place] [address] SERVICES MAGNESIUM (05/26/2017 5:57 EDT) Pathologist Sig nature Magnesium 1.8 1.7 - 2.8 mg/dl [facility] LABORA TORY SERVICES Specimen Blood specimen (specimen) - Blood Performing Organization Address [facility] LABORATORY [address] [place] [address] SERVICES (ABNORMAL) CREATININE (05/26/2017 5:57 EDT) Creatinine 0.53 (L) 0.66 - 1.25 [facility] mg/dl LABORATORY SERVICES GFR, Calculated 110 >60 [facility] Comment: ml/min/1.73m2 LABORATORY eGFR calculated using CKD-EPI equation for SERVICES non Americans. Multiply eGFR by 1.16 for Americans. Specimen Blood specimen (specimen) - Blood Performing Organization Address City/State/ZIP Code Phon e Number [facility] LABORATORY [address] [place] [phone] SERVICES (ABNORMAL) HEMAGRAM (05/26/2017 5:57 EDT) Pathologist Sig nature WBC 7.06 4.0 - 10.4 K/cmm [facility] LABORATORY SERVICES RBC 3.20 (L) 4.36 - 5.78 M/cmm [facility] LABORATORY SERVICES Hemoglobin 10.7 (L) 13.8 - 17.3 gm/dl [facility] LABORATORY SERVICES HCT 30.0 (L) 39.5 - 50.2 % [facility] LABORATORY SERVICES MCV 94 81 - 95 fl [facility] LABORATORY SERVICES MCH 33.4 (H) 27.6 - 33.0 pg [facility] LABORATORY SERVICES MCHC 35.7 32.8 - 36.4 gm/dl [facility] LABORATORY SERVICES RDW-CV 11.3 <14.2 % [facility] LABORATORY SERVICES RDW-SD 38.4 <46.0 fl [facility] LABORATORY SERVICES PLT 306 141 - 377 K/cmm [facility] LABORATORY SERVICES MPV 10.3 9.5 - 12.7 fl [facility] LABORATORY SERVICES Specimen Blood specimen (specimen) - Blood Performing Organization Address City/State/ZIP Code Phon e Number [facility] LABORATORY [address] [place] [address] SERVICES (ABNORMAL) ELECTROLYTES (05/25/2017 17:58 EDT) Pathologist Sig nature Sodium 130 (L) 136 - 145 mEq/L [facility] LABORA TORY SERVICES Potassium 3.6 3.5 - 5.0 mEq/L [facility] LABORA TORY SERVICES Chloride 83 (L) 96 - 110 mEq/L [facility] LABORAT ORY SERVICES CO2 36 (H) 22 - 32 mEq/L [facility] LABORATO RY SERVICES Specimen Blood specimen (specimen) - Blood Performing Organization Address City/State/ZIP Code Phon e Number [facility] LABORATORY [address] [place] [address] SERVICES OSMOLALITY, URINE (05/25/2017 14:29 EDT) Pathologist Sig nature Osmolality, Ur 284 150 - 1,150 mos/kg [facility] LABORATORY SERVICES Specimen Urine (substance) - Urine Performing Organization Address City/[facility] Code Phon e Number [facility] LABORATORY [address] [place] [address] SERVICES URINE ELECTROLYTES (05/25/2017 14:29 EDT) Chloride, Ur 41 mEq/L [facility] Comment: LABORATORY SERVICES Reference Range: No reference range available Potassium, Urine 31.1 mEq/L [facility] LABORATORY SERVICES Sodium, Ur 81.0 mEq/L [facility] LABORATORY SERVICES Specimen Urine (substance) - Urine Performing Organization Address [facility] Code Phon e Number [facility] LABORATORY [address] [place] [address] SERVICES EKG 12-LEAD (05/25/2017 7:40 EDT) Specimen Narrative [facility] EKG - 06/02/2017 8:35 EDT ? [facility] ? Test Date: ?2017-05-25 Pat Name: ? DAVID MERA ?Department: ?? [facility] 5 ? Room: ? MW531 Gender: ? M ?Methods Specialist Engineer: ?? [id number] : ?1950 ? Requested By: PRADIP MONET Order Number: [id number] ? Reading MD: ?? SENG PERSON SA, MD ? Measurements Intervals ?[place] ? Rate: ? 76 ? P: ?35 ME: ? 218 ?QRS: ?-47 QRSD: ? 188 [...] Seng Brody Sa, MD - 06/02/2017 [facility] Test Date: 2017-05-25 Pat Name: DAVID MERA Department: BUD Chao Room: 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: [id number] : 1950 Requested By: PRADIPVARGAS MANNING Order Number: [id number] Reading MD: Nithya PERSON SA, MD Measurements Intervals [place] Rate: 76 P: 35 ME: 218 QRS: -47 QRSD: 188 T: 193 [...] Address City/State/ZIP Code Phon e Number [facility] EKG (ABNORMAL) ELECTROLYTES (05/25/2017 5:59 EDT) Pathologist Sig nature Sodium 127 (L) 136 - 145 mEq/L [facility] Potassium 3.7 3.5 - 5.0 mEq/L [facility] Chloride 85 (L) 96 - 110 mEq/L [facility] CO2 36 (H) 22 - 32 mEq/L [facility] Specimen Blood specimen (specimen) - Blood Performing Organization Address [facility]/ZIP [facility] Phon e Number [facility] LABORATORY [address] [place] [address] SERVICES (ABNORMAL) BUN (05/25/2017 5:59 EDT) Pathologist Sig nature BUN 9 (L) 10 - 26 mg/dl [facility] Specimen Blood specimen (specimen) - Blood Performing Organization Address City/[facility]/ZIP Code Phon e Number [facility] LABORATORY [address] [place] [address] SERVICES MAGNESIUM (05/25/2017 5:59 EDT) Pathologist Sig nature Magnesium 1.7 1.7 - 2.8 mg/dl [facility] Specimen Blood specimen (specimen) - Blood Performing Organization Address [facility]/ZIP [facility] Phon e Number [facility] LABORATORY [address] [place] [address] SERVICES (ABNORMAL) CREATININE (05/25/2017 5:59 EDT) Creatinine 0.54 (L) 0.66 - 1.25 [facility] mg/dl LABORATORY SERVICES GFR, Calculated 109 >60 [facility] Comment: ml/min/1.73m2 LABORATORY eGFR calculated using CKD-EPI equation for SERVICES non Americans. Multiply eGFR by 1.16 for Americans. Specimen Blood specimen (specimen) - Blood Performing Organization Address City/State/ZIP Code Phon e Number [facility] LABORATORY [address] [place] [address] SERVICES (ABNORMAL) HEMAGRAM (05/25/2017 5:59 EDT) Pathologist Sig nature WBC 6.99 4.0 - 10.4 K/cmm [facility] LABORATORY SERVICES RBC 3.16 (L) 4.36 - 5.78 M/cmm [facility] LABORATORY SERVICES Hemoglobin 10.5 (L) 13.8 - 17.3 gm/dl [facility] LABORATORY SERVICES HCT 29.5 (L) 39.5 - 50.2 % [facility] LABORATORY SERVICES MCV 93 81 - 95 fl [facility] LABORATORY SERVICES MCH 33.2 (H) 27.6 - 33.0 pg [facility] LABORATORY SERVICES MCHC 35.6 32.8 - 36.4 gm/dl [facility] LABORATORY SERVICES RDW-CV 11.2 <14.2 % [facility] LABORATORY SERVICES RDW-SD 38.8 <46.0 fl [facility] LABORATORY SERVICES PLT 290 141 - 377 K/cmm [facility] LABORATORY SERVICES MPV 10.7 9.5 - 12.7 fl [facility] LABORATORY SERVICES Specimen Blood specimen (specimen) - Blood Performing Organization Address City/[facility]/ZIP Code Phon e Number [facility] LABORATORY [address] [place] [address] SERVICES (ABNORMAL) ELECTROLYTES (05/24/2017 18:02 EDT) Pathologist Sig nature Sodium 127 (L) 136 - 145 mEq/L [facility] LABORA TORY SERVICES Potassium 3.7 3.5 - 5.0 mEq/L [facility] LABORA TORY SERVICES Chloride 80 (L) 96 - 110 mEq/L [facility] LABORAT ORY SERVICES CO2 37 (H) 22 - 32 mEq/L [facility] LABORATO RY SERVICES Specimen Blood specimen (specimen) - Blood Performing Organization Address City/State/ZIP Code Phon e Number [facility] LABORATORY [address] [place] [address] SERVICES [facility] 12-LEAD (05/24/2017 7:22 EDT) Specimen Narrative [facility] - 05/28/2017 9:56 EDT ? [facility] ? Test Date: ?2017-05-24 Pat Name: ? DAVID MERA ?Department: ?? [facility] 5 ? Room: ? MW531 Gender: ? M ?Methods Specialist Engineer: ?? [id number] : ?1950 ? Requested By: PRADIP MONET Order Number: [id number] ? Reading MD: ?? ERVIN WILHELM MD ? Measurements Intervals ?[place] ? Rate: ? 103 ?P: ?-19 ME: ? 232 ?QRS: ?-39 QRSD: ? 192 [...] Name: DAVID MERA Department: BUD Chao Room: 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: [id number] : 1950 Requested By: PRADIP MANNING Order Number: [id number] Reading MD: Hallie WILHELM MD Measurements Intervals [place] Rate: 103 P: -19 ME: 232 QRS: -39 QRSD: 192 T: 168 QT: 412 QTc: 542 Interpretive Statements ELECTRONIC VENTRICULAR PACEMAKER Compared to ECG 05/23/2017 07:20:54 No significant changes I reviewed the tracing and have either a greed or edited the findings in this report. Electronically Signed On 8 09:56:53 EDT by ERVIN WILHELM MD. Performing Organization Address City/State/ZIP Code Phon e Number [facility] EKG (ABNORMAL) ELECTROLYTES (05/24/2017 5:51 EDT) Pathologist Sig nature Sodium 128 (L) 136 - 145 mEq/L [facility] LABORA TORY SERVICES Potassium 3.9 3.5 - 5.0 mEq/L [facility] LABORA TORY SERVICES Chloride 83 (L) 96 - 110 mEq/L [facility] LABORAT ORY SERVICES CO2 36 (H) 22 - 32 mEq/L [facility] LABORATO RY SERVICES Specimen Blood specimen (specimen) - Blood Performing Organization Address City/State/ZIP Code Phon e Number [facility] LABORATORY [address] [place] [address] SERVICES (ABNORMAL) BUN (05/24/2017 5:51 EDT) Pathologist Sig nature BUN 9 (L) 10 - 26 mg/dl [facility] Specimen Blood specimen (specimen) - Blood Performing Organization Address City/State/ZIP Code Phon e Number [facility] LABORATORY [address] [place] [address] SERVICES MAGNESIUM (05/24/2017 5:51 EDT) Pathologist Sig nature Magnesium 1.7 1.7 - 2.8 mg/dl [facility] LABORA TORY SERVICES Specimen Blood specimen (specimen) - Blood Performing Organization Address City/State/ZIP Code Phon e Number [facility] LABORATORY [address] [place] [address] SERVICES (ABNORMAL) CREATININE (05/24/2017 5:51 EDT) Creatinine 0.59 (L) 0.66 - 1.25 [facility] mg/dl LABORATORY SERVICES GFR, Calculated 105 >60 [facility] Comment: ml/min/1.73m2 LABORATORY eGFR calculated using CKD-EPI equation for SERVICES non Americans. Multiply eGFR by 1.16 for Americans. Specimen Blood specimen (specimen) - Blood Performing Organization Address City/State/ZIP Code Phon e Number [facility] LABORATORY [address] [place] [address] SERVICES (ABNORMAL) HEMAGRAM (05/24/2017 5:51 EDT) Pathologist Sig nature WBC 7.61 4.0 - 10.4 K/cmm [facility] LABORATORY SERVICES RBC 3.35 (L) 4.36 - 5.78 M/cmm [facility] LABORATORY SERVICES Hemoglobin 11.0 (L) 13.8 - 17.3 gm/dl [facility] LABORATORY SERVICES HCT 31.4 (L) 39.5 - 50.2 % [facility] LABORATORY SERVICES MCV 94 81 - 95 fl [facility] LABORATORY SERVICES MCH 32.8 27.6 - 33.0 pg [facility] LABORATORY SERVICES MCHC 35.0 32.8 - 36.4 gm/dl [facility] LABORATORY SERVICES RDW-CV 11.4 <14.2 % [facility] LABORATORY SERVICES RDW-SD 39.0 <46.0 fl [facility] LABORATORY SERVICES PLT 273 141 - 377 K/cmm [facility] LABORATORY SERVICES MPV 10.9 9.5 - 12.7 fl [facility] LABORATORY SERVICES Specimen Blood specimen (specimen) - Blood Performing Organization Address City/[facility]/ZIP Code Phon e Number [facility] LABORATORY [address] [place] [address] SERVICES (ABNORMAL) ELECTROLYTES (05/23/2017 21:40 EDT) Pathologist Sig nature Sodium 128 (L) 136 - 145 mEq/L [facility] LABORA TORY SERVICES Potassium 3.6 3.5 - 5.0 mEq/L [facility] LABORA TORY SERVICES Chloride 81 (L) 96 - 110 mEq/L [facility] LABORAT ORY SERVICES CO2 38 (H) 22 - 32 mEq/L [facility] LABORATO RY SERVICES Specimen Blood specimen (specimen) - Blood Performing Organization Address City/[facility]/ZIP Code Phon e Number [facility] LABORATORY [address] [place] [address] SERVICES (ABNORMAL) ELECTROLYTES (05/23/2017 12:16 EDT) Pathologist Sig nature Sodium 126 (L) 136 - 145 mEq/L [facility] LABORA TORY SERVICES Potassium 3.7 3.5 - 5.0 mEq/L [facility] LABORA TORY SERVICES Chloride 81 (L) 96 - 110 mEq/L [facility] LABORAT ORY SERVICES CO2 36 (H) 22 - 32 mEq/L [facility] LABORATO RY SERVICES Specimen Blood specimen (specimen) - Blood Performing Organization Address City/State/ZIP Code Phon e Number [facility] LABORATORY [address] [place] [address] SERVICES ECHOCARDIOGRAM LIMITED (05/23/2017 10:59 EDT) Specimen Narrative [facility] CARDIOLOGY MAIN [facility] S - 05/23/2017 11:19 EDT *Interpreting Group:* *[facility] Cardiology* [address] [place] [address] Date of study: 05/23/2017 Transthoracic Echocardiography M-mode, [...] ?Akash Reyes MD ATTENDING ?Tony Rosenberg MD MISSILEMAN ??Hali Del Real [facility] PERFORMING ?? Uvc, Ip ORDERING ? Jayne Landry REFERRING ?Katia Mccallum *PROCEDURE DATA* Procedure information: ??This study was interpreted by [facility] Cardiology. Pertin ent images [...] Andrade MD - 05/23/2017 *Interpreting Group:* *[facility] Cardiology* [address] [place] [address] Date of study: 05/23/2017 Transthoracic Echocardiography M-mode, [...] Akash Reyes MD ATTENDING Tony Rosenberg MD MISSILEMAN Hali DelR eal [facility] PERFORMING [facility], Ip ORDERING Jayne Landry Katelyn Doran *PROCEDURE DATA* Procedure information: This study was in terpreted by [facility] Cardiology. Pertin ent images [...] Andrade MD 05/23/2017 11:19 Performing Organization Address City/[facility]/ZIP Code Phon e Number [facility] CARDIOLOGY MAIN CAMPUS FLUID DIFFERENTIAL (05/23/2017 7:47 EDT) Pathologist Sig nature Neutrophils, Fluid 30 % [facility] LABORATORY SERVICES Lymphocytes, Fluid 64 % [facility] LABORATORY SERVICES Burnett/Macro, Fluid 5 % [facility] LABORATORY SERVICES Eosinophil, Fluid 1 % [facility] LABORATORY SERVICES Specimen Pericardial Fluid Performing Organization Address City/State/ZIP Code Phon e Number [facility] LABORATORY [address] [place] [address] SERVICES FUNGUS CULTURE/SMEAR, OTHER (05/23/2017 7:47 EDT) Pathologist Sig nature Fungal Smear No fungi seen [facility] LABORATORY SERVICES Result No fungi isolated [facility] LABORATORY SERVICES Specimen FOSMIC - Pericardial Fluid Performing Organization Address City/[facility]/ZIP Code Phon e Number [facility] LABORATORY [address] [place] [address] SERVICES ANAEROBE CULTURE/SMEAR(INC. AEROBES), FLUID (05/23/2017 7:47 EDT) Gram Smear Result Few [facility] Polys LABORATORY SERVICES Gram Smear Result No bacteria seen [facility] LABORATORY SERVICES Result No growth [facility] LABORATORY SERVICES Specimen FOSMIC - Pericardial Fluid Performing Organization Address City/[facility]/ZIP Code Phon e Number [facility] LABORATORY [address] [place] [address] SERVICES HEMATOCRIT, BODY FLUID (05/23/2017 7:47 EDT) Hematocrit,Body 6.5Comment: % [facility] [place] PERICARDIAL FLUID LABORATORY SERVICES Specimen FOSCHM - Pericardial Fluid Performing Organization Address [facility]/ZIP Code Phon e Number [facility] LABORATORY [address] [place] [address] SERVICES FLUID CELL COUNT (05/23/2017 7:47 EDT) Pathologist Sig nature RBC, Fluid 661,000 /cmm [facility] LABORATORY SERVICES Nucleated Cells 1,773 /cmm [facility] LABORATORY SERVICES Fluid Comment Markedly bloody [facility] LABORATORY SERVICES Specimen FOSCH - Pericardial Fluid Performing Organization Address City/[facility]/ZIP Code Phon e Number [facility] LABORATORY [address] [place] [address] SERVICES TOTAL PROTEIN, FLUID (05/23/2017 7:47 EDT) Protein, Fluid 5.5 g/dl [facility] Comment: LABORATORY SERVICES Reference Range: Pleural [...] FOSCHM - Pericardial Fluid Performing Organization Address [facility] e Number [facility] LABORATORY [address] [place] [address] SERVICES LDH, FLUID (05/23/2017 7:47 EDT) Pathologist Sig nature LDH, Fluid 2,337 U/L [facility] Comment: LABORATORY SERVICES Pleural fluid specimen [...] FOSCHM - Pericardial Fluid Performing Organization Address [facility] e Number [facility] LABORATORY [address] [place] [address] SERVICES GLUCOSE, FLUID (05/23/2017 7:47 EDT) Glucose, Fluid 54 mg/dl [facility] Comment: LABORATORY SERVICES Reference Range: Pleural [...] FOSCHM - Pericardial Fluid Performing Organization Address [facility] Code Phon e Number [facility] LABORATORY [address] [place] [address] SERVICES ALBUMIN, FLUID (05/23/2017 7:47 EDT) Albumin, Fluid 2.5 g/dl [facility] Comment: LABORATORY SERVICES Reference Range: Pleural [...] FOSCHM - Pericardial Fluid Performing Organization Address [facility] Phon e Number [facility] LABORATORY [address] [place] [address] SERVICES EKG 12-LEAD (05/23/2017 7:20 EDT) Specimen Narrative [facility] EKG - 05/23/2017 11:4 5 EDT ? [facility] ? Test Date: ?2017-05-23 Pat Name: ? DAVID MERA ?Department: ?? [facility] 5 ? Room: ? MW531 Gender: ? M ?Methods Specialist Engineer: ?? [id number] : ?1950 ? Requested By: PRADIP MONET Order Number: [id number] ? Reading : ?? MARCO A FOX MD ? Measurements Intervals ?[place] ? Rate: ? 102 ?P: ? ME: ? 0 ?QRS: ?-20 QRSD: ? 189 ?T: ?178 QT: ? 398 ? QTc: ?519 ? Interpretive Statements ELECTRONIC VENTRICULAR PACEMAKER ABNORMAL RHYTHM ECG I reviewed the tracing and have either a greed or edited the findings in this report. Electronically Signed On 8 11:45:47 EDT by MARCO A FOX MD. Procedure Note Marco A Fox MD - 05/23/2017 [facility] Test Date: 2017-05-23 Pat Name: DAVID MERA Department: BUD Chao Room: 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: [id number] : 1950 Requested By: PRADIP MANNING Order Number: [id number] Reading MD: Hallie FOX MD Measurements Intervals [place] Rate: 102 P: ME: 0 QRS: -20 QRSD: 189 T: 178 QT: 398 QTc: 519 Interpretive Statements ELECTRONIC VENTRICULAR PACEMAKER ABNORMAL RHYTHM ECG I reviewed the tracing and have either a greed or edited the findings in this report. Electronically Signed On 11:45:47 EDT by MARCO A FOX MD. Performing Organization Address City/State/ZIP Code Phon e Number [facility] EKG (ABNORMAL) ELECTROLYTES (05/23/2017 6:42 EDT) Pathologist Sig nature Sodium 124 (LL) 136 - 145 mEq/L [facility] LABORATORY SERVICES Potassium 3.5 3.5 - 5.0 mEq/L [facility] LABORATORY SERVICES Chloride 84 (L) 96 - 110 mEq/L [facility] LABORATORY SERVICES CO2 33 (H) 22 - 32 mEq/L [facility] LABORATORY SERVICES Specimen Blood specimen (specimen) - Blood Performing Organization Address [facility]/ZIP Code Phon e Number [facility] LABORATORY [address] [place] [address] SERVICES BUN (05/23/2017 6:42 EDT) Pathologist Sig nature BUN 10 10 - 26 mg/dl [facility] LABORATO RY SERVICES Specimen Blood specimen (specimen) - Blood Performing Organization Address City/[facility]/ZIP Code Phon e Number [facility] LABORATORY [address] [place] [address] SERVICES MAGNESIUM (05/23/2017 6:42 EDT) Pathologist Sig nature Magnesium 1.7 1.7 - 2.8 mg/dl [facility] LABORA TORY SERVICES Specimen Blood specimen (specimen) - Blood Performing Organization Address City/[facility]/ZIP Code Phon e Number [facility] LABORATORY [address] [place] [address] SERVICES (ABNORMAL) CREATININE (05/23/2017 6:42 EDT) Creatinine 0.50 (L) 0.66 - 1.25 [facility] mg/dl LABORATORY SERVICES GFR, Calculated 113 >60 [facility] Comment: ml/min/1.73m2 LABORATORY eGFR calculated using CKD-EPI equation for SERVICES non Americans. Multiply eGFR by 1.16 for Americans. Specimen Blood specimen (specimen) - Blood Performing Organization Address City/State/ZIP Code Phon e Number [facility] LABORATORY [address] [place] [address] SERVICES (ABNORMAL) HEMAGRAM (05/23/2017 6:42 EDT) Pathologist Sig nature WBC 8.96 4.0 - 10.4 K/cmm [facility] LABORATORY SERVICES RBC 3.30 (L) 4.36 - 5.78 [facility] Hemoglobin 11.0 (L) 13.8 - 17.3 gm/dl [facility] LABORATORY SERVICES HCT 30.8 (L) 39.5 - 50.2 % [facility] LABORATORY SERVICES MCV 93 81 - 95 fl [facility] LABORATORY SERVICES MCH 33.3 (H) 27.6 - 33.0 pg [facility] LABORATORY SERVICES MCHC 35.7 32.8 - 36.4 gm/dl [facility] LABORATORY SERVICES RDW-CV 11.3 <14.2 % [facility] LABORATORY SERVICES RDW-SD 38.5 <46.0 fl [facility] LABORATORY SERVICES PLT 254 141 - 377 [facility] MPV 11.2 9.5 - 12.7 fl [facility] LABORATORY SERVICES Specimen Blood specimen (specimen) - Blood Performing Organization Address City/State/ZIP Code Phon e Number [facility] LABORATORY [address] [place] [address] SERVICES CYTOPATHOLOGY (05/23/2017 0:00 EDT) Pathology Report: CYTOPATHOLOGY REPORT [facility] LABORATORY Reports generated via electronic interface contain jacquelyn ginal data; SERVICES however they are lacking the format of the original re port. Caution should be taken when reading/interpreting unfo rmatted reports. Name: ? ADOLPH DAVID Juan ? Accession #: ? [id number] : ? 1950 (Age: 66) ??M ?Collect [...] Address City/State/ZIP Code Phon e Number [facility] [address] [place] [address] SERVICES (ABNORMAL) ELECTROLYTES (05/22/2017 23:40 EDT) Pathologist Sig nature Sodium 125 (L) 136 - 145 mEq/L [facility] LABORA TORY SERVICES Potassium 3.3 (L) 3.5 - 5.0 mEq/L [facility] LABORA TORY SERVICES Chloride 84 (L) 96 - 110 mEq/L [facility] LABORAT ORY SERVICES CO2 33 (H) 22 - 32 mEq/L [facility] LABORATO RY SERVICES Specimen Blood specimen (specimen) - Blood Performing Organization Address [facility]/ZIP Code Phon e Number [facility] [address] [place] [address] SERVICES (ABNORMAL) ELECTROLYTES (05/22/2017 18:36 EDT) Pathologist Sig nature Sodium 124 (LL)Comment: 136 - 145 mEq/L [facility] Slight hemolysis LABORATORY SERVICES Potassium 3.9 3.5 - 5.0 mEq/L [facility] Comment: LABORATORY SERVICES Slight hemolysis Hemolysis may elevate potassium result. Chloride 81 (L)Comment: 96 - 110 mEq/L [facility] Slight hemolysis LABORATORY SERVICES CO2 32Comment: Slight 22 - 32 mEq/L [facility] hemolysis LABORATORY SERVICES Specimen Blood specimen (specimen) - Blood Performing Organization Address [facility] Phon e Number [facility] [address] [place] [address] SERVICES CHEST PA AND LATERAL (05/22/2017 14:43 EDT) Anatomical Region Laterality Modality Other Specimen Narrative [facility] RADIOLOGY [facility] - 05/22/2017 15:28 EDT CHEST PA AND [...] diaphragm less well seen. Performing Organization Address City/[facility]/ZIP Code Phon e Number [facility] RAD[facility]OLOGY [facility] (ABNORMAL) ELECTROLYTES (05/22/2017 12:36 EDT) Pathologist Sig nature Sodium 121 (LL)Comment: 136 - 145 mEq/L [facility] Moderate hemolysis LABORATORY SERVICES Potassium 5.3 (H) 3.5 - 5.0 mEq/L [facility] Comment: LABORATORY SERVICES Moderate hemolysis Hemolysis may elevate potassium result. Chloride 85 (L)Comment: 96 - 110 mEq/L [facility] Moderate hemolysis LABORATORY SERVICES CO2 27Comment: Moderate 22 - 32 mEq/L [facility] hemolysis LABORATORY SERVICES Specimen Blood specimen (specimen) - Blood Performing Organization Address [facility]/ZIP Code Phon e Number [facility] [address] [place] [address] SERVICES BACTERIAL CULTURE, BLOOD (05/22/2017 9:58 EDT) Pathologist Sig nature Result No growth [facility] LABORATOR Y SERVICES Specimen Blood specimen (specimen) - Blood Performing Organization Address [facility]/ZIP Code Phon e Number [facility] [address] [place] [address] SERVICES BACTERIAL CULTURE, BLOOD (05/22/2017 9:58 EDT) Pathologist Sig nature Result No growth [facility] LABORATOR Y SERVICES Specimen Blood specimen (specimen) - Blood Performing Organization Address [facility] Phon e Number [facility] [address] [place] [address] SERVICES EKG 12-LEAD (05/22/2017 8:04 EDT) Specimen Narrative [facility] EKG - 05/26/2017 12:5 0 EDT ? [facility] ? Test Date: ?2017-05-22 Pat Name: ? DAVID MERA ?Department: ?? [facility] 5 ? Room: ? MW531 Gender: ? M ?Methods Specialist Engineer: ?? [id number] : ?1950 ? Requested By: PRADIP MONET Order Number: [id number] ? Reading MD: ?? GAGAN RAMOS MD ? Measurements Intervals ?[place] ? Rate: ? 115 ?P: ?-20 ME: ? 237 ?QRS: ?-24 QRSD: ? 177 [...] Note Gagan Ramos MD - 05/26/2017 [facility] Test Date: 2017-05-22 Pat Name: DAVID MERA Department: BUD Chao Room: 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: [id number] : 1950 Requested By: PRADIP MANNING Order Number: [id number] Reading MD: Vern RAMOS MD Measurements Intervals [place] Rate: 115 P: -20 ME: 237 QRS: -24 QRSD: 177 T: 172 QT: 357 QTc: 496 Interpretive Statements ELECTRONIC VENTRICULAR PACEMAKER ABNORMAL RHYTHM ECG Compared to ECG 05/21/2017 20:29:55 No significant changes I reviewed the tracing and have either a greed or edited the findings in this report. Electronically Signed On 12:50:27 EDT by GAGAN RAMOS MD. Performing Organization Address City/[facility]/ZIP Code Phon e Number [facility] EKG BUN (05/22/2017 4:09 EDT) Pathologist Sig nature BUN 11 10 - 26 mg/dl [facility] Specimen Blood specimen (specimen) - Blood Performing Organization Address [facility]/ZIP Code Phon e Number [facility] [address] [place] [address] SERVICES MAGNESIUM (05/22/2017 4:09 EDT) Pathologist Sig nature Magnesium 2.1 1.7 - 2.8 mg/dl [facility] LABORA TORY SERVICES Specimen Blood specimen (specimen) - Blood Performing Organization Address City/State/ZIP Code Phon e Number [facility] [address] [place] [address] SERVICES (ABNORMAL) CREATININE (05/22/2017 4:09 EDT) Creatinine 0.56 (L) 0.66 - 1.25 [facility] mg/dl LABORATORY SERVICES GFR, Calculated 108 >60 [facility] Comment: ml/min/1.73m2 LABORATORY eGFR calculated using CKD-EPI equation for SERVICES non Americans. Multiply eGFR by 1.16 for Americans. Specimen Blood specimen (specimen) - Blood Performing Organization Address [facility]/State/ZIP Code Phon e Number [facility] [address] [place] [address] SERVICES (ABNORMAL) HEMAGRAM (05/22/2017 4:09 EDT) Pathologist Sig nature WBC 10.75 (H) 4.0 - 10.4 K/cmm [facility] SERVICES RBC 3.70 (L) 4.36 - 5.78 M/cmm [facility] SERVICES Hemoglobin 12.2 (L) 13.8 - 17.3 gm/dl [facility] SERVICES HCT 34.1 (L) 39.5 - 50.2 % [facility] LABORATORY SERVICES MCV 92 81 - 95 fl [facility] LABORATORY SERVICES MCH 33.0 27.6 - 33.0 pg [facility] LABORATORY SERVICES MCHC 35.8 32.8 - 36.4 gm/dl [facility] LABORATORY SERVICES RDW-CV 10.9 <14.2 % [facility] LABORATORY SERVICES RDW-SD 37.2 <46.0 fl [facility] LABORATORY SERVICES PLT 294 141 - 377 K/cmm [facility] LABORATORY SERVICES MPV 10.7 9.5 - 12.7 fl [facility] LABORATORY SERVICES Specimen Blood specimen (specimen) - Blood Performing Organization Address City/State/ZIP Code Phon e Number [facility] [address] [place] [address] SERVICES (ABNORMAL) ELECTROLYTES (05/22/2017 4:09 EDT) Pathologist Sig nature Sodium 122 (LL) 136 - 145 mEq/L [facility]ATORY SERVICES Potassium 4.0 3.5 - 5.0 mEq/L [facility] LABORATORY SERVICES Chloride 84 (L) 96 - 110 mEq/L [facility] LABORATORY SERVICES CO2 29 22 - 32 mEq/L [facility] SERVICES Specimen Blood specimen (specimen) - Blood Performing Organization Address City/State/ZIP Code Phon e Number [facility] [address] [place] [address] SERVICES (ABNORMAL) ELECTROLYTES (05/22/2017 0:23 EDT) Pathologist Sig nature Sodium 120 (LL) 136 - 145 mEq/L [facility] SERVICES Potassium 3.4 (L) 3.5 - 5.0 mEq/L [facility] LABORATORY SERVICES Chloride 83 (L) 96 - 110 mEq/L [facility] LABORATORY SERVICES CO2 31 22 - 32 mEq/L [facility] LABORATORY SERVICES Specimen Blood specimen (specimen) - Blood Performing Organization Address City/State/ZIP Code Phon e Number [facility] [address] [place] [address] SERVICES EKG 12-LEAD (05/21/2017 20:29 EDT) Specimen Narrative [facility] EKG - 05/30/2017 11:5 5 EDT ? [facility] ? Test Date: ?2017-05-21 Pat Name: ? DAVID MERA ?Department: ?? [facility] 5 ? Room: ? MW531 Gender: ? M ?Methods Specialist Engineer: ?? [id number] : ?1950 ? Requested By: ROBLES Cabral Order Number: [id number] ? Reading MD: ?? ASHLEY CONSUELO MD ? Measurements Intervals ?[place] ? Rate: ? 109 ?P: ? ME: ? 0 ?QRS: ?-41 QRSD: ? 179 [...] Ashley Edwards Jr., MD - 05/30/2017 [facility] Test Date: 2017-05-21 Pat Name: DAVID MERA Department: RANDIVern Pagan Zhanna Room: 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: [id number] : 1950 Requested By: ROBLES Cabral Order Number: [id number] Martha MD: Elsa EDWARDS MD Measurements Intervals [place] Rate: 109 P: ME: 0 QRS: -41 QRSD: 179 T: 175 QT: 391 QTc: 528 Interpretive Statements ELECTRONIC VENTRICULAR PACEMAKER ABNORMAL RHYTHM ECG Compared to ECG 05/21/2017 07:12:25 No significant changes I reviewed the tracing and have either a greed or edited the findings in this report. Electronically Signed On 11:55:09 EDT by ASHLEY EDWARDS MD. Performing Organization Address City/State/ZIP Code Phon e Number [facility] EKG PORTABLE CHEST 1 VIEW (05/21/2017 20:25 EDT) Anatomical Region Laterality Modality Other Specimen Narrative [facility] RADIOLOGY MAIN [facility]AMPUS - 05/21/2017 20:35 [...] Address City/State/ZIP Code Phon e Number [facility] RADIOLOGY MAIN [facility]AMPUS (ABNORMAL) ELECTROLYTES (05/21/2017 20:08 EDT) Pathologist Sig nature Sodium 121 (LL) 136 - 145 mEq/L [facility] LABORATORY SERVICES Potassium 3.7 3.5 - 5.0 mEq/L [facility] LABORATORY SERVICES Chloride 79 (L) 96 - 110 mEq/L [facility] LABORATORY SERVICES CO2 32 22 - 32 mEq/L [facility] LABORATORY SERVICES Specimen Blood specimen (specimen) - Blood Performing Organization Address City/[facility]/ZIP Code Phon e Number [facility] [address] [place] [address] SERVICES PERMANENT PACEMAKER PROCEDURE (05/21/2017 19:42 EDT) Specimen Narrative [facility] CARDIOLOGY MAIN MEROMU S - 05/21/2017 20:01 EDT *Cardiology* [address] [place] [address] Lead Revision Patient: David Mera ? Study Date: ?05/21/2017 ? Accession #: ? [id number] : ? 1950 Referring: Katia Mccallum Attending: [...] and the lead was extracted. A 7 Swazi safety sheath was advanced ov er the [...] topical skin adhesive. IMPLANTED HARDWARE: Implanted device: [employer] - [place] [facility] [facility] - Serial number: [id number]. Implanted originally on 05-02-2017 . LEAD PARAMETERS + + +---- + + Lead # ? 1 ? 1 ? 2 ? + + +---- + + Chamber ? RA ? RA ? RV ? + + +---- + + Date implanted ?? 05/02/2017 ? 05/21/2017 ? 05/02/2017 ? + + +---- + + Model ? [employer] Medtronic Select Colcord Sci [id number] ?? information ? 5197 ? Secure-59 [id number] ? + + +---- + + Serial number ?? [id number] ? [id number] ? [id number] ? + + +---- + + Location [...] results, any complications, and treatment plan to [facility] members and patient support persons who were present at the conclusi on of the procedure. POST PROCEDURAL DISPOSITION: Patient was admitted as an inpatient mello or to this procedure. Electronically signed by Seng Rand MD, PhD 05/21/2017 20:01 Procedure Note Seng Rand MD - 05/21/2017 *Cardiology* [address] [place] [address] Lead Revision Patient: David Mera Study Date: 05/02 : 1950 Referring: Katia Mccallum Attending: Seng Rand MD, PhD Fellow: Assisting: Jhon Dixon RN Copies: ATTESTATION: I, Dr. Seng [...] and the lead was extracted. A 7 Swazi safety sheath was advanced ov er the [...] topical skin adhesive. IMPLANTED HARDWARE: Implanted device: [employer] - Flamsred sentio PPM - Serial number: [id number]. Implanted originally on 05-02-2017 . LEAD PARAMETERS + + +---- + + Lead # 1 1 2 + + +---- + + Chamber RA RA RV + + +---- + + Date implanted 05/02/2017 05/21/2017 05/02/2017 + + +---- + + Model [employer] Medtronic [place] [address] [place] Sci 7742 information 7740 Secure-59 [id number] + + +---- + + Serial number [id number] + + +---- + + [...] results, any complications, and treatment plan to [facility] members and patient support persons who were present at the conclusi on of the procedure. POST PROCEDURAL DISPOSITION: Patient was admitted as an inpatient mello or to this procedure. Electronically signed by Seng Rand MD, PhD 05/21/2017 20:01 Performing Organization Address City/State/ZIP Code Phon e Number [facility] CARDIOLOGY MAIN CAMPUS INPATIENT ADD-ON (05/21/2017 18:20 EDT) Pathologist Sig nature Tests to be added FREE T4,TSH [facility] LABORATORY SERVICES Number for problems [id number] [facility] LABORATORY SERVICES Accession number [id number] [facility] [id number] LABORATORY SERVICES Specimen Other Performing Organization Address City/State/ZIP Code Phon e Number [facility] [address] [place] [address] SERVICES CREATININE, URINE RANDOM (05/21/2017 18:20 EDT) Pathologist Sig nature Creatinine, Urn [place] 26.2 mg/dl [facility] LABORATORY SERVICES Specimen Urine (substance) - Urine Performing Organization Address [facility]/ZIP [facility] Phon e Number [facility] [address] [place] [address] SERVICES PROTEIN, TOTAL, RANDOM, URINE (05/21/2017 18:20 EDT) Pathologist Sig nature Tot Prot,Ur Random 21 mg/dl [facility] LABORATORY SERVICES Specimen Urine (substance) - Urine Performing Organization Address [facility] Phon e Number [facility]ORY [address] [place] [address] SERVICES ECHOCARDIOGRAM LIMITED (05/21/2017 18:19 EDT) Specimen Narrative [facility] CARDIOLOGY MAIN CAMPU S - 05/22/2017 8:34 EDT *Interpreting Group:* *[facility] Cardiology* [address] [place] [address] Date of study: 05/21/2017 Transthoracic Echocardiography M-mode, [...] time: ??07:33 PM. PERFORMING ?? Uvlillyc, Cam MISSILEMAN ??Emilia Corey RDCS *PROCEDURE DATA* Procedure information: ??This study was interpreted by [facility] Cardiology. Pertin ent images and digital data are archived for permanent storage and are a vailable for subsequent review. Study status: ??STAT. Transthoracic echo cardiography. ??M-mode, limited 2D, limited spectral Doppler, and color Doppler. A Transthoracic Echocardiogram was performed. Scanning w as performed from the parasternal, apical, and subcostal acous tic windows. Images were obtained using an BriefMeq 13 cardiac ultras ound machine. Image quality [...] Rubio MD - 05/22/2017 *Interpreting Group:* *[facility] Cardiology* [address] [place] [address] Date of study: 05/21/2017 Transthoracic Echocardiography M-mode, [...] stop time: 07:33 PM. PERFORMING Uvmmc, Ip MISSILEMAN Emilia Corey RDCS *PROCEDURE DATA* Procedure information: This study was in terpreted by [facility] Cardiology. Pertin ent images [...] Address City/State/ZIP Code Phon e Number [facility] CARDIOLOGY MAIN CAMPUS TSH (05/21/2017 14:02 EDT) Pathologist Sig nature TSH 0.60 0.47 - 4.68 uIU/ml [facility] LABORATORY SERVICES Specimen Blood Performing Organization Address City/State/ZIP Code Phon e Number [facility] [address] [place] [address] SERVICES T4 FREE (05/21/2017 14:02 EDT) Pathologist Sig nature T4, Free 1.5 0.8 - 2.2 ng/dl [facility] LABORA TORY SERVICES Specimen Blood Performing Organization Address City/[facility]/ZIP Code Phon e Number [facility] [address] [place] [address] SERVICES (ABNORMAL) ELECTROLYTES (05/21/2017 14:02 EDT) Pathologist Sig nature Sodium 116 (LL) 136 - 145 mEq/L [facility] LABORATORY SERVICES Potassium 4.1 3.5 - 5.0 mEq/L [facility] LABORATORY SERVICES Chloride 78 (L) 96 - 110 mEq/L [facility] LABORATORY SERVICES CO2 28 22 - 32 mEq/L [facility] LABORATORY SERVICES Specimen Blood specimen (specimen) - Blood Performing Organization Address City/State/ZIP Code Phon e Number [facility] [address] [place] [address] SERVICES ECHOCARDIOGRAM (05/21/2017 10:30 EDT) Specimen Narrative [facility] CARDIOLOGY MAIN CAMPU S - 05/21/2017 10:48 EDT *Interpreting Group:* *[facility] Cardiology* [address] [place] [address] Date of study: 05/21/2017 Transthoracic Echocardiography M-mode, [...] Uvmmc, Ip ORDERING ? Maria Antonia Zimmerman MISSILEMAN ??Lizette, Jose G REFERRING ?Katia Mccallum *PROCEDURE DATA* Procedure information: ??The patient was identified by two identifiers. This study was interpreted by [facility]irstin [facility] Cardiology. Pertinent images [...] Andrade MD - 05/21/2017 *Interpreting Group:* *[facility] Cardiology* [address] [place] [id number] Date of study: 05/21/2017 Transthoracic Echocardiography M-mode, [...] PERFORMING Uvmmc, Ip ORDERING Maria Antonia Zimmerman MISSILEMAN Jose G Bauer Katelyn Doran *PROCEDURE DATA* Procedure information: The patient was i dentified by two identifiers. This study was interpreted by The [facility] Cardiology. Pertinent images and digital data are archived for permanent storage and are available for subsequent review. Study status: Routine. Transthoracic echocardiography. M-mode, complete 2D, complete spectral Doppler, and color Doppler. A T ransthoracic Echocardiogram was performed. Scanning was performed from t he parasternal, apical, subcostal, and suprasternal notch acoust ic windows. Images were obtained using an BriefMeq 13 cardiac ultrasound mach ine. Image quality [...] Address City/State/ZIP Code Phon e Number [facility] CARDIOLOGY MAIN CAMPUS (ABNORMAL) ELECTROLYTES (05/21/2017 9:55 EDT) Pathologist [facility] Sodium 117 (LL) 136 - 145 mEq/L [facility] LABORATORY SERVICES Potassium 3.7 3.5 - 5.0 mEq/L [facility] LABORATORY SERVICES Chloride 77 (L) 96 - 110 mEq/L [facility] LABORATORY SERVICES CO2 30 22 - 32 mEq/L [facility] LABORATORY SERVICES Specimen Blood specimen (specimen) - Blood Performing Organization Address City/[facility] Phon e Number [facility] LABOR[facility]ORY [address] [place] [address] SERVICES EKG 12-LEAD (05/21/2017 7:12 EDT) Specimen Narrative [facility] EKG - 05/23/2017 15:0 4 EDT ? [facility] ? Test Date: ?2017-05-21 Pat Name: ? DAVID MERA ?Department: ?? [facility] 5 ? Room: ? MW531 Gender: ? M ?Methods Specialist Engineer: ?? [id number] : ?1950 ? Requested By: PRADIP MARIA ANTONIA Order Number: [id number] ? Reading MD: ?? SENG PERSON SA MD ? Measurements Intervals ?[place] ? Rate: ? 75 ? P: ?31 ME: ? 173 ?QRS: ?-73 QRSD: ? 183 [...] Name: DAVID MERA Department: BUD Chao Room: 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: [id number] : 1950 Requested By: PRADIP MANNING Order Number: [id number] Martha MD: Nithya PERSON SA, MD Measurements Intervals [place] Rate: 75 P: 31 ME: 173 QRS: -73 QRSD: 183 T: 174 [...] Address City/State/ZIP Code Phon e Number [facility] EKG INPATIENT ADD-ON (05/21/2017 6:55 EDT) Pathologist Sig nature Tests to be added MAGNESIUM [facility] LABORATORY SERVICES Number for problems [id number] [facility] LABORATORY SERVICES Accession number [id number] [facility] LABORATORY SERVICES Specimen Other Performing Organization Address City/State/ZIP Code Phon e Number [facility] LABORATORY [address] [place] [address] SERVICES INPATIENT ADD-ON (05/21/2017 6:40 EDT) Pathologist Sig nature Tests to be added ALT,ALK [facility] PHOS,AST,TOTAL LABORATORY SERVICES BILI,ALBUMIN Number for problems [id number] [facility] LABORATORY SERVICES Accession number [id number] [facility] LABORATORY SERVICES Specimen Other Performing Organization Address City/[facility]/ZIP Code Phon e Number [facility] LABORATORY [address] [place] [address] SERVICES MAGNESIUM (05/21/2017 5:57 EDT) Pathologist Sig nature Magnesium 1.8 1.7 - 2.8 mg/dl [facility] LABORA TORY SERVICES Specimen Blood Performing Organization Address City/[facility]/ZIP [facility] Phon e Number [facility] LABORATORY [address] [place] [address] SERVICES BILIRUBIN, TOTAL (05/21/2017 5:57 EDT) Pathologist Sig nature Bilirubin, Total 0.6 <1.4 mg/dl [facility] LABOR ATORY SERVICES Specimen Blood Performing Organization Address [facility]/ZIP Code Phon e Number [facility] LABORATORY [address] [place] [address] SERVICES AST (05/21/2017 5:57 EDT) Pathologist Sig nature AST 33 15 - 46 U/L [facility] LABORATOR Y SERVICES Specimen Blood Performing Organization Address City/[facility]/ZIP Code Phon e Number [facility] LABORATORY [address] [place] [address] SERVICES ALT (05/21/2017 5:57 EDT) Pathologist Sig nature ALT 39 21 - 72 U/L [facility] LABORATOR Y SERVICES Specimen Blood Performing Organization Address City/[facility]/ZIP Code Phon e Number [facility] LABORATORY [address] [place] [address] SERVICES ALKALINE PHOSPHATASE (05/21/2017 5:57 EDT) Pathologist Sig nature Total Alkaline 81 38 - 126 U/L [facility] Phosphatase LABORATORY SERVICES Specimen Blood Performing Organization Address City/[facility]/ZIP Code Phon e Number [facility] LABORATORY [address] [place] [address] SERVICES (ABNORMAL) ALBUMIN (05/21/2017 5:57 EDT) Pathologist Sig nature Albumin 3.0 (L) 3.4 - 4.9 g/dl [facility] LABORAT ORY SERVICES Specimen Blood Performing Organization Address City/[facility]/ZIP Code Phon e Number [facility] LABORATORY [address] [place] [address] SERVICES (ABNORMAL) ELECTROLYTES (05/21/2017 5:57 EDT) Pathologist Sig nature Sodium 117 (LL) 136 - 145 mEq/L [facility] LABORATORY SERVICES Potassium 3.5 3.5 - 5.0 mEq/L [facility] Chloride 76 (L) 96 - 110 mEq/L [facility] CO2 31 22 - 32 mEq/L [facility] SERVICES Specimen Blood specimen (specimen) - Blood Performing Organization Address [facility] Phon e Number [facility]OR[facility]ORY [address] [place] [address] SERVICES (ABNORMAL) PROTIME (05/21/2017 5:57 EDT) Pro Time 16.3 (H)Comment: NOTE 10.3 - 13.4 [facility] NEW REFERENCE RANGE secs LABORATORY SERVICE S OF APR 03 2017 I.N.R. 1.4 (H) 0.9 - 1.1 [facility] Comment: Ratio LABORATORY SERVICES Moderate Intensity Coumadin INR = 2.0-3.0 Adjustments in anticoagulant therapy dose should be based upon the INR and NOT the Pro Time. Specimen Blood specimen (specimen) - Blood Performing Organization Address [facility] Phon e Number [facility]OR[facility] [address] [place] [address] SERVICES HIV 1/2 ANTIGEN AND ANTIBODY, 4TH GENERATION (05/21/2017 5:57 EDT) HIV 1/2 Antibody Negative Negative [facility] Comment: LABORATORY SERVICES Fourth generation assay performed on the Siemens Centaur. If acute HIV-1 infection is suspected in a high risk patient, submit plasma specimen for HIV-1 RNA quantification test. Specimen Blood specimen (specimen) - Blood Performing Organization Address [facility]/ZIP [facility] Phon e Number [facility]OR[facility] [address] [place] [address] SERVICES (ABNORMAL) BUN (05/21/2017 5:57 EDT) Pathologist Sig nature BUN 5 (L) 10 - 26 mg/dl [facility] LABORATO RY SERVICES Specimen Blood specimen (specimen) - Blood Performing Organization Address [facility] Phon e Number [facility] [address] [place] [address] SERVICES (ABNORMAL) CREATININE (05/21/2017 5:57 EDT) Creatinine 0.43 (L) 0.66 - 1.25 [facility] mg/dl LABORATORY SERVICES GFR, Calculated 120 >60 [facility] Comment: ml/min/1.73m2 LABORATORY eGFR calculated using CKD-EPI equation for SERVICES non Americans. Multiply eGFR by 1.16 for Americans. Specimen Blood specimen (specimen) - Blood Performing Organization Address City/State/ZIP Code Phon e Number [facility] [address] [place] [address] SERVICES (ABNORMAL) HEMAGRAM AND DIFFERENTIAL (05/21/2017 5:57 EDT) Pathologist Sig nature WBC 6.90 4.0 - 10.4 [facility] K/[facility] LABORATORY SERVICES RBC 3.25 (L) 4.36 - 5.78 [facility] M/[facility] LABORATORY SERVICES Hemoglobin 10.9 (L) 13.8 - 17.3 [facility] gm/dl LABORATORY SERVICES HCT 29.7 (L) 39.5 - 50.2 % [facility]ORATORY SERVICES MCV 91 81 - 95 fl [facility] SERVICES MCH 33.5 (H) 27.6 - 33.0 pg [facility] LABORATORY SERVICES MCHC 36.7 (H) 32.8 - 36.4 [facility] gm/dl LABORATORY SERVICES RDW-CV 10.6 <14.2 % [facility] LABORATORY SERVICES RDW-SD 36.1 <46.0 fl [facility] LABORATORY SERVICES PLT 266 141 - 377 K/[facility] LABORATORY SERVICES MPV 10.7 9.5 - 12.7 fl [facility]ORATORY SERVICES Neutrophils 61.6 % [facility]OR[facility]ORY SERVICES Lymphocytes 19.0 % [facility] SERVICES Monocytes 16.7 % [facility]OR[facility]ORY SERVICES Eosinophils 1.6 % [facility]ORY SERVICES Basophils 0.7 % [facility] SERVICES Immature Grans 0.4 % [facility]ORATORY SERVICES ABS Neutrophils 4.25 2.20 - 8.85 [facility] K/[facility] LABORATORY SERVICES ABS Lymphs 1.31 1.09 - 3.30 [facility] LABORATORY SERVICES ABS Monocytes 1.15 (H) 0.1 - 0.8 K/[facility] LABORATORY SERVICES ABS Eosinophils 0.11 0.03 - 0.61 [facility] K/[facility] LABORATORY SERVICES ABS Basophils 0.05 0.01 - 0.11 [facility] K/[facility] LABORATORY SERVICES ABS Immature Grans 0.03 0 - 0.06 K/[facility] LABORATORY SERVICES Type of Diff: Automated [facility]ORATORY SERVICES Specimen Blood specimen (specimen) - Blood Performing Organization Address [facility]/ZIP [facility] Phon e Number [facility] [address] [place] [address] SERVICES (ABNORMAL) ELECTROLYTES (05/21/2017 3:28 EDT) Pathologist [facility] nature Sodium 116 (LL) 136 - 145 mEq/L [facility] LABORATORY SERVICES Potassium 3.3 (L) 3.5 - 5.0 mEq/L [facility] SERVICES Chloride 77 (L) 96 - 110 mEq/L [facility] SERVICES CO2 31 22 - 32 mEq/L [facility]OR[facility] SERVICES Specimen Blood specimen (specimen) - Blood Performing Organization Address City/[facility]/ZIP Code Phon e Number [facility] [address] [place] [address] SERVICES EKG 12-LEAD (05/21/2017 1:25 EDT) Specimen Narrative [facility] EKG - 05/23/2017 10:3 5 EDT ? [facility] ? Test Date: ?2017-05-21 Pat Name: ? DAVID MERA ?Department: ?? [facility] 5 ? Room: ? MW531 Gender: ? M ?Methods Specialist Engineer: ?? [id number] : ?1950 ? Requested By: PRADIP MONET Order Number: [id number] ? Reading : ?? PIERRE RUBIO MD ? Measurements Intervals ?[place] ? Rate: ? 75 ? P: ?13 ME: ? 160 ?QRS: ?-81 QRSD: ? 185 [...] Note Pierre Rubio MD - 05/23/2017 [facility] Test Date: 2017-05-21 Pat Name: DAVID MERA Department: BUD Latasha Chao Room: 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: [id number] : 1950 Requested By: PRADIP MANNING Order Number: [id number] Reading MD: Irish RUBIO MD Measurements Intervals [place] Rate: 75 P: 13 ME: 160 QRS: -81 QRSD: 185 T: 171 QT: 495 QTc: 556 Interpretive Statements SINUS RHYTHM WITH ATRIAL TRACKING and VE NTRICULAR PACING Compared to ECG 05/03/2017 04:23:33 No significant changes I reviewed the tracing and have either a greed or edited the findings in this report. Electronically Signed On 10:35:38 EDT by PIERRE RUBIO MD. Performing Organization Address City/[facility]/ZIP Code Phon e Number [facility] EKG INPATIENT ADD-ON (05/21/2017 0:00 EDT) Pathologist Sig nature Tests to be added URINE OSM [facility] LABORATORY SERVICES Number for problems Not Given [facility]ORATORY SERVICES Accession number [id number] [facility] LABORATORY SERVICES Specimen Other Performing Organization Address [facility]/ZIP [facility] Phon e Number [facility] [address] [place] [address] SERVICES OSMOLALITY, URINE (05/20/2017 23:45 EDT) Pathologist Sig nature Osmolality, Ur 251 150 - 1,150 mos/kg [facility] LABORATORY SERVICES Specimen Urine Performing Organization Address [facility] Phon e Number [facility] [address] [place] [address] SERVICES SODIUM, URINE RANDOM (05/20/2017 23:45 EDT) Pathologist Sig nature Sodium, Ur 18.0 mEq/L [facility] LABORATOR Y SERVICES Specimen Urine (substance) - Urine Performing Organization Address [facility] Phon e Number [facility] [address] [place] [address] SERVICES CREATININE, URINE RANDOM (05/20/2017 23:45 EDT) Pathologist Sig nature Creatinine, Urn [place] 43.1 mg/dl [facility] LABORATORY SERVICES Specimen Urine (substance) - Urine Performing Organization Address City/State/ZIP Code Phon e Number [facility] [address] [place] [address] SERVICES POCT US CARDIAC (05/20/2017 22:45 EDT) Anatomical Region Laterality Modality Other Specimen Narrative [facility]Y [facility] - 05/20/2017 23:51 EDT [facility] - Ultrasound Exam Date: 05/20/2017 Exam Type: POCT US CARDIAC Collator: Laly Kim MD Attending: Laly Kim MD [...] exam was performed and interpreted by the [facility] ED Staff Procedure Note Laly Kim MD - 05/20/2017 [facility] - Ultrasoun d Exam Date: 05/20/2017 Exam Type: POCT US CARDIAC Collator: Laly Kim MD Attending: Laly Kim MD [...] exam was performed and interpreted by the [facility] ED Staff Performing Organization Address City/State/ZIP Code Phon e Number [facility] RADIOLOGY [facility] (ABNORMAL) BASIC METABOLIC PANEL (BMP) (05/20/2017 22:40 EDT) Sodium 116 (LL) 136 - 145 [facility] mEq/L LABORATORY SERVICES Potassium 3.6 3.5 - 5.0 [facility] mEq/L LABORATORY SERVICES Chloride 74 (L) 96 - 110 [facility] mEq/L LABORATORY SERVICES CO2 32 22 - 32 mEq/L [facility] LABORATORY SERVICES BUN 6 (L) 10 - 26 mg/dl [facility] LABORATORY SERVICES Creatinine 0.44 (L) 0.66 - 1.25 [facility] mg/dl LABORATORY SERVICES GFR, Calculated 119 >60 [facility] Comment: ml/min/1.73m2 LABORATORY eGFR calculated using CKD-EPI equation for SERVICES non Americans. Multiply eGFR by 1.16 for Americans. Calcium 8.7 8.5 - 10.5 [facility] mg/dl LABORATORY SERVICES Calculated Calcium 9.2 8.5 - 10.5 [facility] mg/dl LABORATORY SERVICES Glucose, Serum 108 (H) 70 - 100 [facility] mg/dl LABORATORY SERVICES Fasting? Unknown [facility] LABORATORY SERVICES Specimen Blood specimen (specimen) - Blood Performing Organization Address City/State/ZIP Code Phon e Number [facility] [address] [place] [address] SERVICES documented in this encounter Visit Diagnoses [...] 05/27/2017 documented in this encounter Care Teams Party Bus Driver Relationship Specialty Start Date End Date Katia Stone PA-C PCP - General 05/02/17 [address] [place] [phone] documented as of this encounter
--- OUTSIDE RECORDS SUMMARY | 2021-12-14 01:08 | XMS_ITS | Encounter Summary ---
:1950 Author Organization [place] [address] Care Team Providers Name Role Phone Katia Mccallum Primary Care Provider Encounter Details Date Type Department Care Team Description 11/25/2019 Telephone Cardiology at [facility] Gayla Ochoa RN [facility] [place] [phone] Social History Tobacco Use Types Packs/Day Years Used Date Never Assessed Sex Assigned at Date Recorded Not on file documented as of this encounter Miscellaneous Notes Telephone Encounter - Gayla Ochoa RN - 11/25/2019 11:44 AM EDT Maru called and is requesting acceptance of a referral to [facility] Cardiology for Tim. States that Timnormally [...] on filedocumented in this encounter Care Teams Pelletizer Relationship Specialty Start Date End Date Katia Mccallum PA PCP - General General Internal Medicine 11/10/18 [address] [place] [phone] documented as of this encounter
--- OUTSIDE RECORDS SUMMARY | 2021-12-14 01:08 | XMS_ITS | Clinical Summary ---
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 100% - no LV functional assessment in [...] Addre ss Type Group MEDICARE MEDICARE PART [id number] 2018-Prese [id number] [place] [id number] [place] [address] 2019-Prese [phone] [address] [place] [address] Advance Directives Latest Code Status on File Code Status Date Activated Date Inactivated Comments Suspended DNR 07/10/2021 10:02 AM 07/11/2021 4:39 AM Code Status decision made by: Patient Content of discussion: full resusitation during periprocedur eal period Care Teams Mine Environmental Engineer Relationship Specialty Start Date End Date Katia Mccallum PA PCP - General General Internal Medicine 11/10/18 [address] [place] [phone]
--- OUTSIDE RECORDS SUMMARY | 2021-12-14 01:08 | XMS_ITS | Encounter Summary ---
:1950 Author Organization [facility] Address [address] [place] [address] Care Team Providers Name Role Phone None, Provider Primary Care Provider Unavailable Katia Stone PA-C Primary Care Provider Reason for Referral (Routine) - Receiving Office to Obtain Authorization Specialty Diagnoses / Procedures Referred By Contact Refer effie To Contact Kaity Yañez NP [address] [place] [phone] Referral ID Status Reason Start Expiration Visits Visits Date Date Requested Authorized [id number] Receiving Office Specialty 05/02/2017 1 1 to [...] Refer effie To Contact Kaity Yañez NP [address] [place] [phone] Referral ID Status Reason Start Expiration Visits Visits Date Date Requested Authorized [id number] Receiving Office Specialty 05/02/2017 1 1 to Obtain Services Authorization Required Comments You must contact us if we have not conta cted you or you have missed your scheduled appointment. If you have any nursing questions, joy gauthier don't hesitate to call the Cardiac Arrhythmia Service at [facility] at or , extension [phone]. For any scheduling of appointments, juliette kitchen call [phone] or , extension [phone]. . (Routine) - Receiving Office to Obtain Authorization Specialty Diagnoses / Procedures Referred By Contact Dian chou To Contact Kaity Yañez NP [address] [phone] Referral ID Status Reason Start Expiration Visits Visits Date Date Requested Authorized [id number] Receiving Office Specialty 05/02/2017 1 1 to Obtain Services Authorization Required Comments Appointment on May 13, 2017 at 9 am for an incision site check with the nurse in the device clinic at [facility]. Phone [phone]. [facility] is located at [address] [place] [address] (Routine) - Receiving Office to Obtain Authorization Specialty Diagnoses / Procedures Referred By Contact Dian chou To Contact Kaity Yañez NP [address] [phone] Referral ID Status Reason Start Expiration Visits Visits Date Date Requested Authorized [id number] Receiving Office Specialty 05/02/2017 1 1 to [...] scheduled at your first appointment. - The [facility] Cardiology is located at [address] [facility] in [place] -Clinics are also held in [facility], [place], [place] and [facility]. I f you live in those areas, we will make arrangements for follow-up appointments in one of those clinics.. Reason for Visit Reason Comments Bradycardia Pt transferred from [place] with new complete heart block. VSS on arrival. CC DOBBS. Encounter Details Date Type Department Care Team Description 04/30/2017 - [facility] Yvon Fields MD [address] [phone] Heart block AV third degree (CMS-HCC) (H CC-CMS) (Primary Dx); 05/04/2017 Encounter Cardiac/Telemetry Kenneth House MD [address] [place] [phone] Acute on chronic diastolic congestive he art failure (CMS-HCC) (HCC-CMS) Unit Houston Corey MD 111 [facility] [address] [place] [address] [place] [address] Social History Tobacco Use Types Packs/Day [...] Principal/Final Diagnosis: Heart block AV third degree ([facility]) Additional Problems Managed in the Hospital Active Hospital Problems Diagnosis Date Noted ??? *Heart block AV third degree ([facility]) 04/30/2017 ??? Hypertensive urgency 05/01/2017 ??? Acute on chronic diastolic congestive heart failure ([facility]) 05/01/2017 Resolved Hospital Problems Diagnosis Date Noted Date Resolved No resolved problems to display. Principal Procedure: PPM 05/02/17 Secondary Procedures: none Hospital Course: David Mera is a 66 y.o. male with no known PMH transferred from [facility] on 04/30/17 for complete heart block. Briefly, patient has had no medical care for 12 years [employer], is on no medications with no PMH. He complianed of 2-3 months of SOB which worsened 2-3 weeks prior to admission and reached critical point 2-3 days prior to admission when he had symptoms at rest with 3 pillow orthopnea and mild increased LE swelling prompting presentation to [facility]. On arrival to ED he was afebrile, HR 58, BP 190/103 with negative labs. ECHO showed EF 65% with moderate concentric LVH, mild LA dilation and mild AST/TR. His HRdropped to the 30s prompting transfer to [facility]. On arrival here patient was asymptomatic with [...] on 05/04/17. He was connected with Katia gentlie patient primary care office on 05/29 as [...] Post Hospital Visit with Caitie Atwood NP [facility] (--) [address] [place] [address] Follow-up appointments and procedures Pacemaker check Your [...] scheduled at your first appointment. - [facility] Cardiology is located at [address] in [place] -Clinics are also held in [facility], and [facility]. If you live in those areas, [...] the nurse in the device clinic at [facility]. Phone [phone]. [facility] is located at [address] [place] [address] Authorizing Provider: Coleen Yañez NP ~Please note: You must contact us if we have not contacted you or you have missed your scheduled appointment. If you have any nursing questions, please don't hesitate to call the Cardiac Arrhythmia Service at [facility] at or , extension [phone]. For any scheduling of appointments, please call [phone] or , extension [phone]. . Authorizing Provider: Coleen Yañez NP Additional Information: Appointment on May 13, 2017 at 9 am for an incision site check with the nurse in the device clinic at the [facility]. . [facility] is located at [address] [place] [address] . You have an appointment with Katia Mccallum PA-C at [facility] on 05/29/2017 at 1:00 pm. If you have questions or need to reschedule your appointment, please call [phone]. Please arrive 15 minutes early to complete any necessary. Bring a copy of this AVS Summary with you. Cardiology follow up on June 16, 2017 at 2:[address] Torres at the [facility]. [facility] is located at [address] [place] [address]. Pacemaker device check on August 05, 2017 at 10 am at the [facility]. [facility] islocated at [address] [place] [address]. Discharge Handoff Communication I called Katia Mccallum's [...] nurse in the device clinic at the [facility]. . [facility] is located at [address] [place] [address] . You have an appointment with Katia Mccallum PA-C at [facility] on 05/29/2017 at 1:00 pm. If you have questions or need to reschedule your appointment, please call [phone]. Please arrive 15 minutes early to complete any necessary. Bring a copy of this AVS Summary with you. Cardiology follow up on June 16, 2017 at 2:[address] Torres at the [facility]. [facility] is located at [address] [place] [address]. Pacemaker device check on August 05, 2017 at 10 am at the [facility]. [facility] islocated at [address] [place] [address]. Discharge Instr - Other Melida Mas RN [...] - 05/04/2017 1500 EST I spoke with carton liner CM regarding patient's lack of electricity at his home. She recommended I contact patient's PCP, [facility] for further assistance, but that no other action could bemade on Friday. Was unable to leave message for their office today and efforts to contact them on 05/02 were met with unreturned messages. I have instructed patient to call their office on Friday to be connected to case management social worker. Amelia Partida, Internal Medicine Resident [...] known PMH admitted in transfer 04/30/17 from [facility] for asymptomatic complete heart block [...] complaints this morning. Hereports he uses the [facility] in [place]. Review of Systems Pertinent items are noted [...] known PMH admitted in transfer 04/30/17 from [facility] for asymptomatic complete heart block [...] Radha Lowery MD Internal Medicine PGY-2 Pager #[phone] 05/03/2017 13:15 Associated attestation - Houston Corey MD - 05/05/2017 1043 EST Attestation statement: I saw and examined the patient with the resident/fellow. I agree with the findings and plan of care documented in the resident's/fellow's note. Patient seen on 05/02/17 Desi Villatoro RN - 05/02/2017 1000 EST 05/02: Patient has an appointment with Katia Mccallum PA-C at [facility] on 05/29/2017 at 1:00 to establish [...] known PMH admitted in transfer 04/30/17 from [facility] for asymptomatic complete heart block [...] PATIENT CONTACT INFO VERIFIED: Yes (Eva Rudolph [phone]) PATIENT ADDRESS VERIFIED: Yes LIVING ARRANGEMENTS AND ACCESSIBILITY ISSUES: Living Arrangements: Alone Levels: 1 Stairs to enter: 2 Handicap access: None Bathroom located on bedroom level?: Yes What in home social supports are available to the patient? Friends / neighbors. Patient lives alone in a mobile home in [place]. He has no immediate family and depends [...] For Finances: No TRANSPORTATION: Transportation: Family CULTURAL, ZOROASTRIANISM and/or LANGUAGE factors affecting health care/discharge planning: [...] PCP Verified: Yes (Patient has gone to [facility] in the past to see Dr. Garcia who has since retired.) Specialists: None Type of Home Health Services: None DME Provider: None Pharmacy: [facility] - [address] - [place], [place] - [address] [facility] [phone] Home Health: None Other: POST HOSPITAL TRANSITION PLAN: Case management will continue to follow through transition to discharge. Anticipate discharge to home when medically stable. No needs are identified at this time. Patientsaid he has a friend who can provide transportation home. Ivelisse Rueda manager plan #[id number] Reba Darnell, [facility] - 05/01/2017 1111 EST Transitions of Care - Pharmacy Admission Medication Reconciliation David Mera is a 66 y.o. male admitted on 04/30/2017 for Heart block AV third degree ([facility]) Pharmacist Interventions/Recommendations: 1. Per patient report, the only medication he was taking prior to admission was ibuprofen 400mg daily for knee pain. Counseled patient to stop taking ibuprofen/NSAIDs as they are harmful to the heart and raise blood pressure-->recommended using acetaminophen for pain instead. 2. Confirmed patient would like to use [facility] in [place], [place] at discharge> please send all discharge prescriptions here. 3. Paged team with findings. Medication History Obtained from: Patient (Self) Medication reconciliation was performed. Discrepancies are noted in BOLD. Clarifications are noted in RED. Medications No prescriptions prior to admission. Additional Prior to Admission Usly-gdw-Tnhfced Products as noted by Patient/Family: Ibuprofen 400mg daily for knee pain Preferred Pharmacy: [facility] - [place], [place] Barriers to Learning: None apparent Barriers to Obtaining Medications: None apparent Barriers to Taking Medications: None apparent Please feel free to contact me or the Transitions of Care Pharmacy Team with questions or concerns. Thank you Reba Tanya Marie, [facility] [phone] Pager: [phone] Houston Corey MD - 05/01/2017 0729 EST [...] known PMH admitted in transfer 04/30/17 from [facility] for asymptomatic complete heart block [...] H&P Admit Date: 04/30/2017 PCP: Provider None Business Associate: none CC: complete heart block HPI: David Mera is a 66 y.o. male with no known PMH who presents in transfer from [place] for complete heart block. Briefly, patient last saw a doctor approximately 12 years ago after he was admitted for TX rule out in [place]. He reports having a stress at that time though does not recall being told it was abnormaland was not discharged on any medications. He saw a packaging sales consultant once in follow-up and has not had medical care since that time. He has no known PMH and takes no medications. Patient states that in January 2017 he got caught in a [employer] downpour while hunting and feels that he has had persistent URI with DOBBS since that time. His symptoms worsened for 2-3 weeks prior toadmission and reached a critical point 2-3 days prior to admission when he has had SOB at rest, associated 3 pillow orthopnea and mild increased LE edema causing him to present to the ED. On arrival [facility], patient was afebrile HR 58, RR [...] ASA 324 mg prior to transfer to [facility]. On arrival here, he was alert and [...] remote stress test 12 years ago in [place] Review of Systems A 10 point review of systems was discussed and is negative aside from what is noted in HPI. PMH: none PSH: benign tumor removal R forearm, L knee arthroscopy Family History: no history of early CAD/ TX or heart block Social History: Lifetime non-smoker, currently chews tobacco (1 can lasts 2-3 days). 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 Never had DTs or withdrawal seizures. 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 [employer] medications None Allergies: No Known Allergies Objective [...] known PMH who presents in transfer from [place] for completeheart block. He is currently asymptomatic [...] presents with ??? Bradycardia Pt transferred from [place] with new complete heart block. VSS on arrival. CC DOBBS. HPI HPI Comments: I, Maite Schmitt, am scribing for Kenneth House MD while he/she is personally performing the service. Maite Schmitt 04/30/2017 17:19 David Mera is a 66 y.o. male with a history of heart block AV third degree who presents to the EDwith bradycardia. The patient was transferred from [place] with complaints of dyspnea on exertion and [...] ER after EKG, whom referred him to [facility] for pacemaker placement. Denies CP, vomiting, [...] with bradycardia. The patient was transferred from [place] with complaints of dyspnea on exertion and [...] ER after EKG, whom referred him to [facility] for pacemaker placement. Denies CP, vomiting, [...] W/ CARDS ACCEPTING. NOTE TAKEN DR HOUSE ([facility]). documented in this encounter Miscellaneous Notes Plan [...] AVS received. Pt left with son and ybexgvec-bd-vpq via wheelchair. BP 115/79 (BP Cuff Location: [...] VSS, monitor tele D: Patient arrived to [place] [address] at 1900. Vital signs noted, BP 180s/80s. [...] EST) Glucose, 104 (H) 70 - 100 [facility] Fingerstick mg/dl LABORATORY SERVICES Municipal Services Manager [place] [id number]: [facility] Test Performed by LABORATORY Nursing Services SERVICES Specimen Blood Performing Organization Address [facility] LABORATORY [address] [place] [address] SERVICES CREATININE (05/03/2017 5:42 EST) Creatinine 0.67 0.66 - 1.25 [facility] mg/dl LABORATORY SERVICES GFR, Calculated 100 >60 [facility] Comment: ml/min/1.73m2 LABORATORY eGFR calculated using CKD-EPI equation for SERVICES non Americans. Multiply eGFR by 1.16 for Americans. Specimen Blood specimen (specimen) - Blood Performing Organization Address [facility] LABORATORY [address] [place] [address] SERVICES (ABNORMAL) BUN (05/03/2017 5:42 EST) Pathologist Sig nature BUN 8 (L) 10 - 26 mg/dl [facility] LABORATO RY SERVICES Specimen Blood specimen (specimen) - Blood Performing Organization Address [facility] LABORATORY [address] [place] [address] SERVICES (ABNORMAL) ELECTROLYTES (05/03/2017 5:42 EST) Pathologist Sig nature Sodium 134 (L) 136 - 145 mEq/L [facility] LABORA TORY SERVICES Potassium 4.2 3.5 - 5.0 mEq/L [facility] LABORA TORY SERVICES Chloride 99 96 - 110 mEq/L [facility] LABORAT ORY SERVICES CO2 26 22 - 32 mEq/L [facility] LABORATO RY SERVICES Specimen Blood specimen (specimen) - Blood Performing Organization Address [facility] LABORATORY [address] [place] [address] SERVICES (ABNORMAL) HEMAGRAM (05/03/2017 5:42 EST) Pathologist Sig nature WBC 7.95 4.0 - 10.4 K/cmm [facility] LABORATORY SERVICES RBC 3.97 (L) 4.36 - 5.78 M/cmm [facility] LABORATORY SERVICES Hemoglobin 13.3 (L) 13.8 - 17.3 gm/dl [facility] LABORATORY SERVICES HCT 38.4 (L) 39.5 - 50.2 % [facility] LABORATORY SERVICES MCV 97 (H) 81 - 95 fl [facility] LABORATORY SERVICES MCH 33.5 (H) 27.6 - 33.0 pg [facility] LABORATORY SERVICES MCHC 34.6 32.8 - 36.4 gm/dl [facility] LABORATORY SERVICES RDW-CV 11.9 <14.2 % [facility] LABORATORY SERVICES RDW-SD 42.4 <46.0 fl [facility] LABORATORY SERVICES PLT 196 141 - 377 K/cmm [facility] LABORATORY SERVICES MPV 12.6 9.5 - 12.7 fl [facility] LABORATORY SERVICES Specimen Blood specimen (specimen) - Blood Performing Organization Address City/State/ZIP Code Phon e Number [facility] LABORATORY [address] [place] [address] SERVICES EKG 12-LEAD (05/03/2017 4:23 EST) Specimen Narrative [facility] EKG - 05/09/2017 13:4 7 EST ? [facility] ? Test Date: ?2017-05-03 Pat Name: ? DAVID MERA ?Department: ?? [facility] [address] ? Room: ? MW514 Gender: ? M ?Brass Roller: ?? [id number] : ?1950 ? Requested By: MARIO ALBERTO SCANLON Order Number: [id number] ? Reading : ?? SENG PERSON SA, MD ? Measurements Intervals ?[place] ? Rate: ? 75 ? P: ?51 ND: ? 172 ?QRS: ?-77 QRSD: ? 172 [...] Seng Brody Sa, MD - 05/09/[address] [facility] Test Date: 2017-05-03 Pat Name: DAVID MERA Department: BUD Chao Room: [facility] Gender: M Brass Roller: [id number] : 1950 Requested By: MARIO ALBERTO GHISLAINE Order Number: [id number] Reading MD: Nithya PERSON SA, MD Measurements Intervals [place] Rate: 75 P: 51 ND: 172 QRS: -77 QRSD: 172 T: 92 QT: 469 QTc: 525 Interpretive Statements ELECTRONIC VENTRICULAR PACEMAKER ABNORMAL RHYTHM ECG Automated Interpretation. Provider Inter pretation to follow. Compared to ECG 05/02/2017 10:10:30 No significant changes I reviewed the tracing and have either a greed or edited the findings in this report. Electronically Signed On 13:47:58 EST by SENG PERSON SA, MD. Performing Organization Address City/[facility]/ZIP Code Phon e Number [facility] EKG PORTABLE CHEST 1 VIEW (05/02/2017 10:27 EST) Anatomical Region Laterality Modality Other Specimen Narrative [facility] RADIOLOGY MAIN CAMPUS - 05/02/2017 10:51 EST [...] Organization Address City/State/ZIP Code Phon e Number [facility] RADIOLOGY MAIN CAMPUS EKG 12-LEAD (05/02/2017 10:10 EST) Specimen Narrative [facility] EKG - 05/08/2017 8:22 EST ? [facility] ? Test Date: ?2017-05-02 Pat Name: ? DAVID MERA ?Department: ?? [facility] [address] ? Room: ? MW514 Gender: ? M ?Brass Roller: ?? [id number] : ?1950 ? Requested By: JORGE Martinez Order Number: [id number] ? Reading MD: ?? LALY WEAVER MD ? Measurements Intervals ?[place] ? Rate: ? 63 ? P: ?40 ND: ? 170 ?QRS: ?-72 QRSD: ? 180 [...] Date: 2017-05-02 Pat Name: DAVID MERA Department: [facility] Latasha Chao Room: [facility] Gender: M Brass Roller: [id number] : 1950 Requested By: JORGE Martinez Order Number: [id number] Martha MD: lEsa WEAVER MD Measurements Intervals [place] Rate: 63 P: 40 ND: 170 QRS: -72 QRSD: 180 T: 86 QT: 492 QTc: 504 Interpretive Statements DUAL CHAMBER PACER ELECTRONIC VENTRICULAR PACEMAKER I reviewed the tracing and have either a greed or edited the findings in this report. Electronically Signed On 08:22:30 EST by LALY WEAVER MD. Performing Organization Address City/State/ZIP Code Phon e Number [facility] EKG PERMANENT PACEMAKER PROCEDURE (05/02/2017 10:00 EST) Specimen Narrative [facility] CARDIOLOGY MAIN CAMPU S - 05/02/2017 11:24 EST *Cardiology* [address] [place] [address] Device Implantation Patient: David Mera ? Study Date: ?05/02/2017 ? Accession #: ? [id number] : ? 1950 Referring: Attending: Tony Rosenberg [...] HARDWARE: Implanted device: Clifford Appiah Serial number: [id number]. LEAD PARAMETERS + + ----+ + Lead # ? 1 ? 2 ? + + ----+ + Chamber ? RA ? RV ? + + ----+ + Date implanted ?? 05/02/2017 ? 05/02/2017 ? + + ----+ + Model information Matchup ? [employer] Ingevity ? ingevity mr ? MRI ? + + ----+ + Serial number ? [id number] ? [id number] ? + + ----+ + Location ? [...] results, any complications, and treatment plan to [facility] members and patient support persons who were present at the conclusi on of the procedure. POST PROCEDURAL DISPOSITION: Patient was admitted as an inpatient [place] or to this procedure. Electronically signed by Tony Rosenberg MD 05/02/2017 11:23 Procedure Note Tony Rosenberg MD - 05/02/2017 *Cardiology* [address] [place] [address] Device Implantation Patient: David Mera Study Date: [...] device: Clifford Tiwari DR - Serial number: [id number]. LEAD PARAMETERS + + ----+ + Lead # 1 2 + + ----+ + Chamber RA RV + + ----+ + Date implanted 05/02/2017 05/02/2017 + + ----+ + Model information Matchup Isaac hood mr MRI + + ----+ + Serial number [id number] + + ----+ + Location RA appendage [...] results, any complications, and treatment plan to [facility] members and patient support persons who were present at the conclusi on of the procedure. POST PROCEDURAL DISPOSITION: Patient was admitted as an inpatient [place] or to this procedure. Electronically signed by Tony Rosenberg MD 05/02/2017 11:23 Performing Organization Address [facility]/ZIP [facility] Phon e Number [facility] CARDIOLOGY MAIN CAMPUS CREATININE (05/02/2017 6:11 EST) Creatinine 0.68 0.66 - 1.25 [facility] mg/dl LABORATORY SERVICES GFR, Calculated 100 >60 [facility] Comment: ml/min/1.73m2 LABORATORY eGFR calculated using CKD-EPI equation for SERVICES non Americans. Multiply eGFR by 1.16 for Americans. Specimen Blood specimen (specimen) - Blood Performing Organization Address [facility]/ZIP [facility] Phon e Number [facility] LABORATORY [address] [place] [address] SERVICES BUN (05/02/2017 6:11 EST) Pathologist Sig nature BUN 10 10 - 26 mg/dl [facility] LABORATO RY SERVICES Specimen Blood specimen (specimen) - Blood Performing Organization Address [facility] Phon e Number [facility] LABORATORY [address] [place] [address] SERVICES (ABNORMAL) ELECTROLYTES (05/02/2017 6:11 EST) Pathologist Sig nature Sodium 135 (L) 136 - 145 mEq/L [facility] LABORA TORY SERVICES Potassium 4.4 3.5 - 5.0 mEq/L [facility] LABORA TORY SERVICES Chloride 102 96 - 110 mEq/L [facility]Y SERVICES CO2 23 22 - 32 mEq/L [facility] RY SERVICES Specimen Blood specimen (specimen) - Blood Performing Organization Address [facility] Phon e Number [facility] [address] [place] [address] SERVICES (ABNORMAL) HEMAGRAM (05/02/2017 6:11 EST) Pathologist Sig nature WBC 6.92 4.0 - 10.4 K/cmm [facility] SERVICES RBC 3.67 (L) 4.36 - 5.78 M/cmm [facility] SERVICES Hemoglobin 12.3 (L) 13.8 - 17.3 gm/dl [facility] SERVICES HCT 35.2 (L) 39.5 - 50.2 % [facility] SERVICES MCV 96 (H) 81 - 95 fl [facility] SERVICES MCH 33.5 (H) 27.6 - 33.0 pg [facility] SERVICES MCHC 34.9 32.8 - 36.4 gm/dl [facility] SERVICES RDW-CV 11.9 <14.2 % [facility] SERVICES RDW-SD 41.1 <46.0 fl [facility] SERVICES PLT 185 141 - 377 K/cmm [facility] SERVICES MPV 12.9 (H) 9.5 - 12.7 fl [facility] SERVICES Specimen Blood specimen (specimen) - Blood Performing Organization Address City/[facility]/ZIP Code Phon e Number [facility] [address] [place] [address] SERVICES (ABNORMAL) TROPONIN I (05/01/2017 7:52 EST) Pathologist Sig nature Troponin I (ng/mL) 0.035 (H) <0.034 ng/ml [facility] SERVICES Specimen Blood specimen (specimen) - Blood Performing Organization Address City/[facility]/ZIP [facility] [place] e Number [facility] [address] [place] [phone] SERVICES MAGNESIUM (05/01/2017 6:01 EST) Pathologist Sig nature Magnesium 2.1 1.7 - 2.8 mg/dl [facility] SERVICES Specimen Blood specimen (specimen) - Blood Performing Organization Address City/State/ZIP Code Phon e Number [facility] [address] [place] [address] SERVICES CREATININE (05/01/2017 6:01 EST) Creatinine 0.67 0.66 - 1.25 [facility] mg/dl LABORATORY SERVICES GFR, Calculated 100 >60 [facility] Comment: ml/min/1.73m2 LABORATORY eGFR calculated using CKD-EPI equation for SERVICES non Americans. Multiply eGFR by 1.16 for Americans. Specimen Blood specimen (specimen) - Blood Performing Organization Address City/State/ZIP Code Phon e Number [facility] [address] [place] [address] SERVICES (ABNORMAL) BUN (05/01/2017 6:01 EST) Pathologist Sig nature BUN 6 (L) 10 - 26 mg/dl [facility] RY SERVICES Specimen Blood specimen (specimen) - Blood Performing Organization Address City/[facility]/ZIP Code Phon e Number [facility] [address] [place] [address] SERVICES (ABNORMAL) ELECTROLYTES (05/01/2017 6:01 EST) Pathologist Sig nature Sodium 134 (L) 136 - 145 mEq/L [facility] SERVICES Potassium 4.5 3.5 - 5.0 mEq/L [facility] SERVICES Chloride 101 96 - 110 mEq/L [facility]Y SERVICES CO2 23 22 - 32 mEq/L [facility] SERVICES Specimen Blood specimen (specimen) - Blood Performing Organization Address City/[facility]/ZIP Code Phon e Number [facility] [address] [place] [address] SERVICES (ABNORMAL) HEMAGRAM (05/01/2017 6:01 EST) Pathologist Sig nature WBC 7.09 4.0 - 10.4 K/cmm [facility] SERVICES RBC 3.76 (L) 4.36 - 5.78 M/cmm [facility] SERVICES Hemoglobin 12.7 (L) 13.8 - 17.3 gm/dl [facility] SERVICES HCT 36.4 (L) 39.5 - 50.2 % [facility] SERVICES MCV 97 (H) 81 - 95 fl [facility] SERVICES MCH 33.8 (H) 27.6 - 33.0 pg [facility] SERVICES MCHC 34.9 32.8 - 36.4 gm/dl [facility] SERVICES RDW-CV 11.9 <14.2 % [facility] SERVICES RDW-SD 42.1 <46.0 fl [facility] SERVICES PLT 205 141 - 377 K/cmm [facility] SERVICES MPV 12.8 (H) 9.5 - 12.7 fl [facility] SERVICES Specimen Blood specimen (specimen) - Blood Performing Organization Address [facility] Phon e Number [facility] [address] [place] [address] SERVICES LIPID PROFILE (INCLUDES CHOLESTEROL, TRIGLYCERIDES, HDL, LDL) (05/01/2017 6:01 EST) Cholesterol 148 mg/dl [facility] Comment: LABORATORY Desirable:<200 SERVICES Borderline High:200-239 High:>jf=415 Triglycerides 65 mg/dl [facility] Comment: LABORATORY Normal:<150 SERVICES Borderline High:150-199 High:200-499 Very High:>rl=935 HDL 39 mg/dl [facility] Comment: LABORATORY Low:<40 SERVICES Normal:40-60 Desirable: >60 LDL, Calculated 96 mg/dl [facility] Comment: LABORATORY Optimal:<100 SERVICES Near Optimal:100-129 Borderline High:130-159 High:160-189 Very High:>xb=398 Chol/HDL Ratio 3.8 [facility] SERVICES Fasting? Unknown [facility] SERVICES Non HDL Cholesterol 109 mg/dl [facility] Comment: LABORATORY Desirable:<130 SERVICES Borderline:130-159 High: 160-189 Very High: >tn=879 Specimen Blood specimen (specimen) - Blood Performing Organization Address City/[facility] Phon e Number [facility] [address] [place] [address] SERVICES (ABNORMAL) TROPONIN I (05/01/2017 0:20 EST) Pathologist Sig nature Troponin I (ng/mL) 0.055 (H) <0.034 ng/ml [facility] SERVICES Specimen Blood specimen (specimen) - Blood Performing Organization Address City/[facility] Phon e Number [facility] [address] [place] [address] SERVICES HEMOGLOBIN A1C (05/01/2017 0:20 EST) Hemoglobin A1C 5.7 % [facility] Comment: LABORATORY SERVICES Reference Range: <5.7% Normal 5.7-6.4% Prediabetes =>6.5% Diagnostic for diabetes (if confirmed) Goals for glycemic control in diabetes ADA 2017 For non adults with diabetes: ?? Target <7.5% For children and adolescents with type 1 diabetes: ?? Target <7.0% More or less stringent targets may be appropriate for individual patients. Est Avg Glucose 117 mg/dl [facility] Comment: LABORATORY SERVICES eAG represents the A1c result expressed as average glucose in mg/dl. Specimen Blood specimen (specimen) - Blood Performing Organization Address [facility] Code Phon e Number [facility] [address] [place] [address] SERVICES (ABNORMAL) PROTIME (04/30/2017 19:33 EST) Pro Time 15.1 (H)Comment: NOTE 10.3 - 13.4 [facility] NEW REFERENCE RANGE secs LABORATORY SERVICE S OF APR 03 2017 I.N.R. 1.3 (H) 0.9 - 1.1 [facility] Comment: Ratio LABORATORY SERVICES Moderate Intensity Coumadin INR = 2.0-3.0 Adjustments in anticoagulant therapy dose should be based upon the INR and NOT the Pro Time. Specimen Blood specimen (specimen) - Blood Performing Organization Address City/[facility]/ZIP Code Phon e Number [facility] [address] [place] [address] SERVICES ED/URGENT CARE ADD-ON (04/30/2017 18:20 EST) Pathologist Sig nature Tests to be added LYME [facility] AB,Comment: TSH LABORATORY SERVICES Number for problems [id number] (ED) [facility] SERVICES Specimen Other Performing Organization Address [facility]/ZIP [facility] [place] e Number [facility] [address] [place] [address] SERVICES OUTSIDE IMAGES ??? ECHO IMAGES (04/30/2017 17:24 EST) Anatomical Region Laterality Modality Other Specimen Narrative OP CARDIOLOGY - 04/30/2017 17:24 EST This is an outside study - there is no r eport. Procedure Note L TACKER, IMAGING - 04/30/2017 This is an outside study - there is no r eport. Performing Organization Address City/State/ZIP Code Phon e Number OP CARDIOLOGY EKG 12-LEAD (04/30/2017 16:43 EST) Specimen Narrative [facility] EKG - 05/02/2017 11:1 2 EST ?[facility] Emergency ? Test Date: ?2017-04-30 Pat Name: ? DAVID MERA ?Department: ?? ED ? Room: ? AC12 Gender: ? M ?Brass Roller: ?? [id number] : ?1950 ? Requested By: DONNA Cabral Order Number: [id number] ? Martha OAKES: ?? ANA OCONNELL MD ? Measurements Intervals ?[place] ? Rate: ? 33 ? P: ? ND: ? 0 ?QRS: ?15 QRSD: ? 110 [...] Pat Name: DAVID MERA Department: ED Room: [facility] Gender: M Brass Roller: [id number] : 1950 Requested By: DONNA Cabral Order Number: [id number] Martha MD: Vern OCONNELL MD Measurements Intervals [place] Rate: 33 P: ND: 0 QRS: 15 QRSD: 110 T: 42 [...] Organization Address City/State/ZIP Code Phon e Number [facility] EKG TSH (04/30/2017 16:40 EST) Pathologist Sig nature TSH 1.34 0.47 - 4.68 uIU/ml [facility] LABORATORY SERVICES Specimen Blood Performing Organization Address City/[facility]/ZIP Code Phon e Number [facility] [address] [place] [address] SERVICES LYME AB (04/30/2017 16:40 EST) Pathologist Sig nature [place] [facility] NegativeComment: [facility] Reference Range: LABORATORY SERVICES Negative Specimen Blood Performing Organization Address City/[facility]/ZIP Code Phon e Number [facility] [address] [place] [address] SERVICES (ABNORMAL) PROFILE ED CARDIAC PACK (04/30/2017 16:40 EST) Sodium 134 (L) 136 - 145 [facility] mEq/L [place] [facility] SERVICES Potassium 4.2 3.5 - 5.0 [facility] mEq/L [facility] Chloride 105 96 - 110 [facility] mEq/L [place] [facility] SERVICES CO2 20 (L) 22 - [...] SERVICES HCT 35.7 (L) 39.5 - 50.2 [facility] % [facility] SERVICES MCV 96 (H) 81 - 95 fl [facility] SERVICES MCH 33.9 (H) 27.6 - 33.0 [facility] pg [place] [facility] SERVICES MCHC 35.3 32.8 - 36.4 [facility] gm/dl [facility] SERVICES RDW-CV 11.9 <14.2 % [facility] SERVICES RDW-SD 41.5 <46.0 fl [facility] SERVICES PLT 197 141 - 377 [facility] K/[facility] LABORATORY SERVICES MPV 12.5 9.5 - 12.7 [facility] LAB[facility]ATORY SERVICES Neutrophils 62.1 % [facility] SERVICES Lymphocytes 23.9 % [facility] SERVICES Monocytes 11.6 % [facility] SERVICES Eosinophils 1.2 % [facility] SERVICES Basophils 0.9 % [facility] SERVICES Immature Grans 0.3 % [facility]OR[facility] SERVICES ABS Neutrophils 4.84 2.20 - 8.85 [facility] K/[facility] LABORATORY SERVICES ABS Lymphs 1.86 1.09 - 3.30 [facility] LABORATORY SERVICES ABS Monocytes 0.90 (H) 0.1 - 0.8 [facility] LABORATORY SERVICES ABS Eosinophils 0.09 0.03 - 0.61 [facility] LABORATORY SERVICES ABS Basophils 0.07 0.01 - 0.11 [facility] LABORATORY SERVICES ABS Immature Grans 0.02 0 - 0.06 [facility] LABORATORY SERVICES Type of Diff: Automated [facility] SERVICES Troponin I (ng/mL) 0.040 (H) <0.034 ng/ml [facility] SERVICES Glucose, Screening 100 70 - 100 [facility] mg/dl [facility] SERVICES Hold Blue Top Sample for [facility] coagulation will be [facility]ORY discarded after 4 SERVICES hours Specimen Blood specimen (specimen) - Blood Performing Organization Address City/State/ZIP Code Phon e Number [facility] [address] [place] [address] SERVICES documented in this encounter Visit Diagnoses Diagnosis Heart block AV third degree (HCC-CMS) (H CC) - Primary Atrioventricular block, complete Acute on chronic diastolic congestive he art failure ([facility]) (HCC) Acute on chronic diastolic heart failure [...] 05/01/2017 documented in this encounter Care Teams Grain Buyer Relationship Specialty Start Date End Date None, Provider PCP - General 04/30/17 05/01/17 Katia Stone, MINGO PCP - General 05/02/17 [address] [place] [phone] documented as of this encounter
--- OUTSIDE RECORDS SUMMARY | 2021-12-14 01:08 | XMS_ITS | Encounter Summary ---
:1950 [place] [address] Care Team Providers Name Role Phone Katia Mccallum Primary Care Provider Encounter Details Date Type Department Care Team Description 07/09/2021 Ancillary Procedure Radiology Library at [facility], And beti Steward [facility] [place] [address] [place] [address] [place] [address] [phone] (Wo rk) Social History Tobacco Use Types [...] Received Time / Laterality Volume Narrative [facility] - 07/09/2021 1:33 PM EDT This exam is auto-finalizing. It's purpo se is for storage only. Nolan Beth MD [facility] FILM LIBRARY ORDERABLES Performing Organization Address City/State/ZIP Code Phon e Number [place], [place] documented in this encounter Visit Diagnoses Not on filedocumented in this encounter Care Teams Performance Architect Relationship Specialty Start Date End Date Katia Mccallum PA PCP - General General Internal Medicine 11/10/[address] [place] [phone] documented as of this encounter
--- OUTSIDE RECORDS SUMMARY | 2021-12-14 01:08 | XMS_ITS | Encounter Summary ---
:1950 [place] [address] Care Team Providers Name Role Phone Katia Mccallum Primary Care Provider Encounter Details Date Type Department Care Team Description 06/26/2021 Ancillary Procedure Radiology Library Mykel Stern, Gallbladder abscess at [facility] DO [facility] [address] [place] RADIOLOGY [id number] [place], [place] [phone] [id number] Social History Tobacco Use Types Packs/Day Years Used Date Never Assessed Sex Assigned at Date Recorded Not on file documented as of this encounter H&P Notes Vini Garner MD - 06/26/2021 3:30 PM EDT Images from the original note were not included. INTERVENTIONAL RADIOLOGY FOCUSED H&P and PRE-PROCEDURE NOTE: PCP: GIRISH Johnson Referring Provider: [facility] General Surgery: Virginia Price DO Planned Procedure: [...] History was communicated by Dr. Price from [facility]. They are requesting a gallbladder fossa and [...] and left basilar pleural collection presenting to [facility] for ct guided abdominal and left pleural drian placement. Plan: Planned procedure: CT guided RUQ abdominal drain and left chest tube placement Labs to be performed day of procedure: Hemogram; INR; Coags (need to be faxed from [facility]) Sedation: Moderate (Conscious sedation) Prophylactic antibiotic : [...] Organization Address City/State/ZIP Code Phon e Number [place], [place] documented in this encounter Visit Diagnoses Diagnosis Gallbladder abscess Acute cholecystitis documented in this encounter Care Teams Business Analytics Specialist Relationship Specialty Start Date End Date Katia Mccallum PA PCP - General General Internal Medicine 11/10/18 [address] [place] [phone] documented as of this encounter
--- OUTSIDE RECORDS SUMMARY | 2021-12-14 01:08 | XMS_ITS | Encounter Summary ---
:1950 Author Organization [facility] [place] [address] Care Team Providers Name Role Phone Katia Mccallum Primary Care Provider Reason for Referral Diagnostic Test (Routine) - Closed Specialty Diagnoses / Procedures Referred By Contact Refer red To Contact Radiology Diagnoses Abdominal visceral abscess Virginia Price, [facility] Rad Ct Scan Procedures CT Guided Drain Peritoneal [address] [place] [address] [address] [place] [id number] Referral ID Status Reason Start Date Expiration Date Visits V isits Requested Authorized [id number] Closed Specialty 07/09/2021 01/09/2023 1 1 Service Requested Reason for Visit Diagnostic Test (Routine) - Closed Specialty Diagnoses / Procedures Referred By Contact Refer red To Contact Radiology Diagnoses Abdominal visceral abscess Virginia Price DO [facility] Rad Ct Scan Procedures CT Guided Drain Peritoneal [address] [place] [address] [address] [place] [id number] Referral ID Status Reason Start Date Expiration Date Visits V isits Requested Authorized [id number] Closed Specialty 07/09/2021 01/09/2023 1 1 Service Requested Encounter Details Date Type Department Care Team Description 07/10/[address] [facility] [place] [facility] [place] Price, Abdominal visceral [facility] abscess (Primary Dx) Drive [address] [place] [address] [address] [phone] [place] [address] Social History Tobacco Use Types Packs/Day Years [...] is during regular office hours, please call [phone]. If it is after regular office hours, oron weekends or holidays, please call [phone] and ask to speak to the Press Set Up Person on callfor Interventional Radiology. XX You have [...] of : 1950 AGE: 70 y.o. [facility] [address] [place] [address] (home) Mobile: No relevant phone numbers on file. Referring Provider: Virginia Price REASON FOR VISIT: Order Questions Answers Where will study be performed? [facility] Radiology [120] Is the patient on [...] Questions Answers Where will study be performed? [facility] Radiology [120] Is the patient on [...] Questions Answers Where will study be performed? [facility] Radiology [120] Is the patient on [...] culture Complications: No immediate Plan/Disposition: Return to [facility] GB fossa drain to bulb [...] of cloudy brown fluid. 2. ??Left-sided 10 [place] chest tube guicho cement, yielding 30 mL of cloudy brown. Plan: 1. ??To IR recovery then transfer back [facility]. 2. ??Awaiting return call from reji stroud [...] who have questions please contact the health patient care director that requested your imaging first. ? Narrative [...] IMPRESSION 1. Percutaneous placement of a 10 [place] drainage catheter into gallbladder fossa abscess/biloma, yielding 120 mL of cloudy brown fluid. 2. Left-sided [address], yielding 30 mL of cloudy brown. Plan: 1. To IR recovery then transfer back to [facility]. 2. Awaiting return call from [...] ho have questions please contact the health patient care director that requested your imaging first. Virginia Price [...] of cloudy brown fluid. 2. ??Left-sided 10 [place] chest tube guicho cement, yielding 30 mL of cloudy brown. Plan: 1. ??To IR recovery then transfer back [facility]. 2. ??Awaiting return call from reji stroud [...] who have questions please contact the health patient care director that requested your imaging first. ? Narrative [...] IMPRESSION 1. Percutaneous placement of a 10 [place] drainage catheter into gallbladder fossa abscess/biloma, yielding 120 mL of cloudy brown fluid. 2. Left-sided [address], yielding 30 mL of cloudy brown. Plan: 1. To IR recovery then transfer back to [facility]. 2. Awaiting return call from [...] ho have questions please contact the health patient care director that requested your imaging first. Virginia Price DO IMG CT ORDERABLES Anaerobic Culture (07/10/2021 11:45 AM EDT) [facility] Method Time Signature Anaerobic No anaerobic [facility] Culture organisms [facility] LABORATORY Specimen Anatomical Collection Method Collection Time Receive d Time (Source) Location / / Volume Laterality Fluid 07/10/2021 11:45 07/10/2021 AM EDT 12:24 PM EDT Comment: Left chest tube placement. Resulting Agency Comment Spec In Lab Vick Boss MD MICROBIOLOGY - GENERAL ORDER IRIWN Performing Organization Address City/State/[place] [address] Body Fluid Culture, Aerobic (07/10/2021 11:45 AM EDT) Component Value Ref Test Analysis Performed At [facility] Range Method Time Signature Body Fluid No growth TAJ Culture [facility] Gram Stain Cytocentrifuge Gram Stain performed [facility] No Neutrophils seen. [place] No microorganisms seen. [facility] LABOR[facility] Specimen Anatomical Collection Method Collection Time Receive d Time (Source) Location / / Volume Laterality Fluid 07/10/2021 11:45 07/10/2021 AM EDT 12:24 PM EDT Comment: Left chest tube placement. Resulting Agency Comment Spec In Lab Vick Boss MD MICROBIOLOGY - GENERAL ORDER IRWIN Performing Organization Address City/State/[place] [address] Anaerobic Culture (07/10/2021 11:20 AM EDT) [facility] Method Time Signature Anaerobic No anaerobic TAJ [place] Culture organisms [facility] LABORATORY Specimen (Source) Anatomical Collection Method Collection [...] Organization Address City/State/[place] [address] (ABNORMAL) Body Fluid Culture, Aerobic (07/10/2021 11:20 AM EDT) Component Value Ref Test Analysis Performed At [facility] Range Method Time Signature Body Fluid Few Escherichia TAJ Culture coli (A) [facility] Gram Stain Cytocentrifuge Gram Stain performed TAJ Olson tatum [place] Few Gram Negative Rods [facility] Organism Escherichia coli TAJ (A) [facility]ORY Specimen (Source) Anatomical Collection [...] Organization Address City/State/[place] [address] documented in this encounter [...] mg documented in this encounter Care Teams Vegetable Ii Farmworker Relationship Specialty Start Date End Date Katia Mccallum PA PCP - General General Internal Medicine 11/10/[address] [place] [phone] documented as of this encounter
--- OUTSIDE RECORDS SUMMARY | 2021-12-14 01:08 | XMS_ITS | Encounter Summary ---
:1950 [place] [address] Care Team Providers Name Role Phone Katia Mccallum Primary Care Provider Encounter Details Date Type Department Care Team Description 11/14/2021 Hospital Encounter Non-Invasive Radha Hammond ([facility] heart Cardiology Lab Andra Hunter MD block) [address] [phone] (Work) [phone] Social History Tobacco Use Types Packs/Day Years [...] pdf document Date of transmission: 11/14/21 Device money market dealer: BS Device type: DC PM Presenting rhythm: apvp AP 56% SALES PROMOTION COORDINATOR 100% - no LV functional assessment in [...] complete documented in this encounter Care Teams Crane Rigger Relationship Specialty Start Date End Date Katia Mccallum PA PCP - General General Internal Medicine 11/10/[address] [place] [phone] documented as of this encounter
--- OUTSIDE RECORDS SUMMARY | 2021-12-14 01:08 | XMS_ITS | Encounter Summary ---
:1950 Author Organization [facility] [place] [address] Care Team Providers Name Role Phone Katia Mccallum Primary Care Provider Encounter Details Date Type Department Care Team Description 07/23/2021 Notes Only Radiology at [facility] [place] [address] RADIOLOGY [phone] [place], [place] [address] (Wo rk) Social History Tobacco [...] were requested by Dr. Virginia Price of [facility]. Unclear follow up in our system; will [...] Chest Tube/Pleural Drain 07/10/2021 Vick Boss MD [facility] RAD CT SCAN ??? CT PERITONEAL DRAINAGE 07/10/2021 CT Guided Drain Peritoneal 07/10/2021 Vick Boss MD [facility] RAD CT SCAN Medications: Allergies: Patient [...] on filedocumented in this encounter Care Teams Band Sewer Relationship Specialty Start Date End Date Katia Mccallum PA PCP - General General Internal Medicine 11/10/[address] [place] [phone] documented as of this encounter
== END ==
PROVIDERS: Visit Provider Nurse Practitioner Gerontology
DX: I51.9 Heart disease, unspecified (principal); R09.89 Other specified symptoms and signs involving the circulatory and respiratory systems
CPT/HCPCS: 71046; 76700

== ENCOUNTER 2021-12-18 21:52 | Outpatient (REF) | payer MEDICARE, MEDICAID, SELFPAY ==
[2021-12-18 20:04] LABS: Abs Immature Grans 0.04 10^3/uL (0.0-0.06); Absolute Basophil Count 0.08 10^3/uL (0.0-0.2); Absolute Lymphocyte Count 1.89 10^3/uL (1.2-3.4); Absolute Monocyte Count 0.89 10^3/uL (0.1-0.8); Absolute Neutrophil Count 5.65 10^3/uL (1.2-6.7); Basophils % 0.9; Eosinophils % 3.4; HCT 33.5 % (40.0-50.0); HGB 10.7 g/dL (13.5-17.5); Immature Grans % 0.5; Lymphocytes % 21.4; MCH 33.6 pg (27.0-33.0); MCHC 31.9 % (32.0-36.0); MCV 105 fL (80-95); Monocytes % 10.1; Neutrophils % 63.7; Platelet Count 235 10^3/uL (130-400); RBC 3.18 10^6/uL (4.36-5.78); RDW 14.2 % (11.8-14.1); RDW-SD 54.4 fL; WBC 8.85 10^3/uL (4.4-10.8)
[2021-12-18 20:21] LABS: Anion Gap 6.6 mmol/L (3-11); BUN 14 mg/dL (7-18); CO2 28.4 mmol/L (21.0-32.0); CREATININE 0.7 mg/dL (0.70-1.30); Calcium 8.7 mg/dL (8.5-10.1); Chloride 98 mmol/L (98-107); Estimated GFR 98.51 (mL/min/1.73m2); Glucose 107 mg/dL (74-106); Potassium 4.4 mmol/L (3.5-5.1); Sodium 133 mmol/L (136-145)
[2021-12-18 20:43] LABS: Diff Comment RBC Morph Reviewed; Macrocytosis 1+
== END 2021-12-18 21:53 | disposition home or self-care (01) ==
LOC: LBN 21:52
PROVIDERS: Visit Provider Nurse Practitioner Gerontology
DX: I25.10 Atherosclerotic heart disease of native coronary artery without angina pectoris (principal); F10.10 Alcohol abuse, uncomplicated; J90 Pleural effusion, not elsewhere classified
CPT/HCPCS: 80048; 85025

== ENCOUNTER → 2022-01-22 01:58 | Outpatient (CLI) | payer MEDICARE, MEDICAID, SELFPAY ==
[2022-01-22] MEDS: Omnipaque 350 MG/ML 500 ML BTL-Imaging package 100 ML IJ (10:08)
[2022-01-22] MEDS: Normal Saline - Diluent 50 ML VIAL IJ (10:10)
--- NOTE | 2022-01-22 10:10 | DI.CT_ITS ---
Exam(s) CT ABDOMEN PELVIS W EXAM: CT ABDOMEN PELVIS W CLINICAL HISTORY: anorexia, gas, bloating,ABD PAIN, R14.0,R10.9 TECHNIQUE: Imaging Protocol: Axial computed tomography images with coronal and sagittal reformatted images were created and reviewed CONTRAST MATERIAL: Intravenous: Omnipaque 350 Contrast volume:100 mL Oral: Yes COMPARISON: CT CT ABDOMEN PELVIS WO from 07/19/2021 FINDINGS: ABDOMEN: Lung Bases: There is again seen a loculated fluid collection in the left lung base. It is unchanged in size. There is adjacent atelectasis or pneumonia. Pleural and diaphragmatic calcifications are s een. Persistent pleural and parenchymal scarring is seen in the right lung base. Cardiomegaly is pr esent. Mitral valvular calcification is present. Liver: Normal density. No measurable mass. Portal, Superior Mesenteric, and Splenic Veins: Unremarkable. Gallbladder and Biliary Tract: Status post cholecystectomy. No biliary ductal dilatation. Pancreas: Normal density, no abnormal calcifications or inflammatory process. Spleen: Normal. Adrenals: No masses seen. Kidneys: Normal size, contour and axis. No radiodense stones or obstructive uropathy. No masses seen. Abdominal Aorta: Abdominal portion non-dilated. Atherosclerosis is present. Bowel: No obstruction or bowel wall thickening. Appendix is unremarkable. There is diverticulosis of the colon, but no evidence of acute diverticulitis. Peritoneal Cavity: No ascites, collection or mesenteric inflammatory response. No free air. Lymph Nodes: Within normal limits. Bones: Within normal limits for the patient's age. There are old healed bilateral rib fractures. Soft Tissues: There is bilateral gynecomastia. There is a 2.9 x 4.1 cm lipoma in the left gluteal mu scles. There are stable well-circumscribed hypo dense subcutaneous masses adjacent to the right brayden c bone. The encapsulated fluid collection posterior to the sacrum and left iliac bone is stable. Th ere is a stable erosion involving the posterior aspect of the adjacent left iliac bone. PELVIS: Bladder: Symmetric distention, no gross wall thickening. Reproductive Organs: Unremarkable as visualized. Lymph Nodes: Within normal limits. Bones: Within normal limits for the patient's age. IMPRESSION: 1. No acute abdominal or pelvic process. 2. Stable findings in the abdomen and pelvis since 07/19/2021. RADIATION DOSE DELIVERED: Total DLP DATA REPOSITORY: All CT scans at this facility are submitted to the National Radiology Data Registry (NRDR) Dose Index Registry (DIR) with the [employer] [place] [employer] (ACR). RADIATION OPTIMIZATION: All CT scans at this facility use at least one of these dose optimization te chniques: automated exposure control; mA and/or kV adjustment per patient size (includes targeted exa ms where dose is matched to clinical indication); or iterative reconstruction.
[2022-01-22] MEDS: Barium Sulfate 2% W/V-Berry Smoothie 450 ML BTL 900 ML PO (10:21)
== END ==
PROVIDERS: Visit Provider Family Medicine
DX: R10.9 Unspecified abdominal pain (principal); R14.0 Abdominal distension (gaseous)
CPT/HCPCS: 74177

== ENCOUNTER 2022-01-31 15:48 | Outpatient (REF) | payer MEDICARE, MEDICAID, SELFPAY ==
--- OUTSIDE RECORDS SUMMARY | 2022-01-31 15:58 | XMS_ITS | Clinical Summary ---
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 Hypertensive urgency 05/01/2017 Heart block AV third degree ([facility]) 04/30/2017 Resolved Problems Problem Noted Date Resolved Date Acute on chronic diastolic congestive heart failure 05/02/19 18 05/27/2017 ([facility] Surgical History Surgery Date Site/Laterality Comments PACEMAKER PLACEMENT 03/03/2017 - 03/02/2018 OTHER SURGICAL HISTORY 06/19/20 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 Also lead repositioned ([facility]) ([facility]) 06/19/20 coming in f or removal of [...] y all messed up Complete heart block ([facility]) ([facility]) now has pacemaker with infected lead CAD (coronary artery disease) 06/19/20 p er pt Community acquired pneumonia 06/19/20 pt states i get pneumonia every year - feels l bowen he has it now - had a collapsed sha ng whoel pacer issues per pt - Card iologist office aware Family History Medical History Relation Comments Heart Disease Brother 1 Heart Disease Father Diabetes Mother Heart Disease Mother Heart Disease Other Relation Status Comments Brother 1 Alive Brother 2 Alive Brother 3 Alive Brother 4 Alive Father Mother Other Other children Sister 1 Alive Sister 2 Alive Social History Tobacco Use Types Packs/Day Years Used Date Smoking Tobacco: Never Smokeless Tobacco: Never Tobacco Cessation: Counseling Given: Yes Alcohol Use Standard Drinks/Week Comments Yes 0 (1 standard drink = 0.6 oz pure alcoho l) whiskey-daily, 2 Sex Assigned at Date Recorded Not on file Obstetrics History Last Filed Vital Signs Vital Sign Reading [...] Hepatitis C Screen 1950 COVID-19 Vaccine (#1) 04/07/1951 Fall Risk Screening 10/06/2015 Medical Devices Implanted Type Area Frame Catcher Device Shelf Model / Identifier Expiration Date Ser ial / Lot [id number] Ingevity Mri - [id number] Lead [employer] 7742 Ingevity MRI / Implanted: 05/02/2017 (Quantity not on file) [id number] / Description: Implant record loaded by IM P Chronicles import. 3830 Selectsecure Mri Surescan - [id number] Lead Medtro velasquez 3830 SelectSecure MRI SureScan / Implanted: 05/21/2017 (Quantity not on file) [id number] / Description: Implant record loaded by IM P Chronicles import. L111 Essentio Mri - [id number] Pacemaker [employer] L111 ESSENTIO MRI / Implanted: 05/02/2017 (Quantity not on file) [id number] / Description: Implant record loaded by IM P Chronicles import. Insurance Payer Benefit Plan Subscriber ID Effective Phone Address Typ e / Group Dates MEDICARE ACO MEDICARE ACO [id number] 2021-[address]se [id number] [place] [address] MEDICARE MEDICARE A/B [id number] 2015-Prese [address] Medicare [place] [facility] [address] [place] [id number] 2019-Prese [address] [place] [phone] Tim Mera Personal/Family Self 1950 [facility] [place] [address] Tim Mera Personal/Family Self 1950 [facility] [place] [address] Tim Mera Personal/Family Self 1950 [facility] [place] [address] Tim Mera Personal/Family Self 1950 [facility] [place] [address] Tim Mera Personal/Family Self 1950 [facility] [place] [address] Tim Mera Personal/Family Self 1950 [facility] [place] [address] Tim Mera Personal/Family Self 1950 [facility] [place] [address] Advance Directives For more information, please contact: [phone] Latest Code Status on File Code Status [...] in the discussion? Not Discussed Care Teams Mandolin Repair Person Relationship Specialty Start Date End Date Katia Stone PA-C PCP - General 05/02/17 [address] [place] [phone]
--- OUTSIDE RECORDS SUMMARY | 2022-01-31 15:58 | XMS_ITS | Encounter Summary ---
:1950 Author Organization [facility] Address [address] [place] [address] Care Team Providers Name Role Phone Katia Stone PA-C Primary Care Provider Encounter Details Date Type Department Care Team Description 06/23/2021 Lab Requisition [facility] Outr Resulting Lab, Pathology & Laboratory Provider [facility] [address] [place] [address] Social History Tobacco Use Types Packs/Day Years Used Date Smoking Tobacco: Never Assessed Sex Assigned at Date Recorded [...] encounter Results OSMOLALITY, URINE (06/23/2021 4:00 EDT) athologist Signature Osmolality, 509 150-1,150 06/23/2021 [facility] Urine mOsm/kg 21:58 EDT [facility] Specimen Anatomical Collection Method Collection Time Receive d Time (Source) Location / / Volume Laterality Urine URINE SPECIMEN 06/23/2021 4:00 06/23/2021 COLLECTION, CLEAN EDT 21:40 EDT CATCH / Unknown Provider Outr Resulting Lab URINALYSIS ORDERABLES Performing Organization Address City/State/ZIP Code Phon e Number [facility] [address] [place] [address] SERVICES documented in this encounter Visit Diagnoses Not on filedocumented in this encounter Care Teams Lower School Music Teacher Relationship Specialty Start Date End Date Katia Stone PA-C PCP - General 05/02/[address] [place] [phone] documented as of this encounter
--- OUTSIDE RECORDS SUMMARY | 2022-01-31 15:59 | XMS_ITS | Encounter Summary ---
:1950 Author Organization [facility] Address [address] [place] [address] Care Team Providers Name Role Phone Katia Stone PA-C Primary Care Provider Reason for Visit Reason Onset Date Comments Appointment Related 06/16/2020 Encounter Details Date Type Department Care Team Description 06/16/2020 Telephone [facility] Ghazala Sutherland RN Appo intment Related Cardiothoracic Surgery - [address] [address] Social History Tobacco Use Types Packs/Day Years Used Date Smoking Tobacco: Never Smokeless Tobacco: Never Sex Assigned at Date Recorded Not on [...] this encounter Miscellaneous Notes Telephone Encounter - Ghazlaa Sutherland RN - 06/16/[address] Surgery Update Message left for pt that the Pre-Op Center will call him on Monday 06/19 between 4 - 4:45 PM. I also left him a message to be sure and connect with his Rubber Tubing Splicer at PCP office to get his COVID test 3-4 days prior to surgery. Surgery is on 06/26. GHAZALA SUTHERLAND RN documented in this encounter Plan of Treatment Not on filedocumented as of this encounter Visit Diagnoses Not on filedocumented in this encounter Care Teams Tracer Clerk Relationship Specialty Start Date End Date Katia Stone, PABijalC PCP - General 05/02/17 [address] [place] [phone] documented as of this encounter
--- OUTSIDE RECORDS SUMMARY | 2022-01-31 15:59 | XMS_ITS | Encounter Summary ---
:1950 Author Organization [facility] Address [address] [place] [address] Care Team Providers Name Role Phone Katia Stone PA-C Primary Care Provider Encounter Details Date Type Department Care Team Description 08/14/2020 Results Only [facility] [address] [place] [address] [place], [place] [phone] (Wo rk) Social History Tobacco Use Types Packs/Day Years Used Date Smoking Tobacco: Never Smokeless Tobacco: Never Alcohol Use Standard Drinks/Week Comments Yes 0 [...] encounter Results (ABNORMAL) MAGNESIUM (08/14/2020 5:03 EDT) athologist Signature Magnesium 1.6 (L) 1.8 - 2.4 08/14/2020 [facility] mg/dl 6:19 [facility] Specimen Anatomical Collection Method Collection Time Receive d Time (Source) Location / / Volume Laterality 08/14/2020 5:03 08/14/2020 5 :51 EDT EDT Jayesh Olmos MD CHEMISTRY & BLOOD GAS ORDERA BLES Performing Organization Address City/State/ZIP Code Phon e Number [facility] [address] [place] [address] (ABNORMAL) COMPREHENSIVE METABOLIC PANEL (CMP) (08/14/2020 5:03 EDT) athologist Signature Sodium 138 136 - 145 08/14/2020 [facility] mEq/L 6:19 [facility] Potassium 3.6 3.5 - 5.1 08/14/2020 [facility] mEq/L 6:19 [facility] Chloride 103 96 - 107 08/14/2020 [facility] mEq/L 6:19 [facility] CO2 Total 28.4 21 - 32 08/14/2020 [facility] mEq/L 6:19 [facility] Anion Gap 6.6 mEq/L 08/14/2020 [facility] 6:19 [facility] BUN 11 7 - 25 08/14/2020 [facility] mg/dl 6:19 [facility] Creatinine 0.51 (L) 0.70 - 08/14/2020 [facility] 1.30 mg/dl 6:19 [facility] Estimated GFR >60 >60 08/14/2020 [facility] 6:19 [facility] Comment: EGFR UNITS: mL/min/1.73 m 2 CKD-EPI Equation used to calculate. Glucose 101 74 - 106 mg/dl 08/14/2020 6:19 [facility] Calcium 8.1 (L) 8.5 - 10.1 08/14/2020 6:19 [facility] DICAL mg/dl [facility] CALCIUM,CORRECTED - 9.5 8.5 - 10.5 08/14/2020 6:19 [facility] PMC mg/dl [facility] BILIRUBIN - PMC 0.40 0.00 - 1.00 08/14/2020 6:19 [facility] mg/dl [facility] [facility] AST 34 15 - 37 U/L 08/14/2020 6:19 [facility] ALT 21 16 - 63 U/L 08/14/2020 6:19 [facility] Alkaline Phosphatase 102 46 - 116 U/L 08/14/2020 6:19 [facility] Total Protein 6.3 (L) 6.4 - 8.2 g/dl 08/14/2020 6:19 [facility] Albumin 2.2 (L) 3.4 - 5.0 g/dl 08/14/2020 6:19 [facility] GLOBULIN - PMC 4.1 g/dl 08/14/2020 6:19 [facility] ALBUMIN/GLOBULIN 0.5 08/14/2020 6:19 [facility] - [facility] CENTER LAB Specimen Anatomical Collection Method Collection Time Receive d Time (Source) Location / / Volume Laterality 08/14/2020 5:03 08/14/2020 5 :51 EDT EDT Jayesh Olmos MD CHEMISTRY & BLOOD GAS ORDERA BLES Performing Organization Address City/State/ZIP Code Phon e Number [facility] [address] [place] [address] (ABNORMAL) COMPLETE BLOOD COUNT AND DIFFERENTIAL (08/14/2020 5:03 EDT) Component Value Ref Range Test Analysis Performed Pathologis t Method Time At Signature WBC 5.1 4.0 - 10.5 10 08/14/2020 [facility] 3/uL 6:06 [facility] RBC 2.76 (L) 4.70 - 6.00 08/14/2020 [facility] 10 6/uL 6:06 [facility] Hemoglobin 9.9 (L) 13.5 - 18.0 08/14/2020 [facility] g/dL 6:06 [facility] HCT 28.7 (L) 42.0 - 52.0 % 08/14/2020 [facility] 6:06 [facility] MCV 104.0 (H) 78 - 100 fL 08/14/2020 [facility] 6:06 [facility] MCH 35.9 (H) 27 - 31 pg 08/14/2020 [facility] 6:06 [facility] MCHC 34.5 32 - 37 g/dL 08/14/2020 [facility] 6:06 [facility] RDW-CV - PMC 15.9 (H) <14.7 % 08/14/2020 [facility] 6:06 [facility] PLATELET COUNT 189 150 - 450 10 08/14/2020 [facility] - PMC 3/uL 6:06 [facility] MPV 10.8 9.2 - 12.0 fL 08/14/2020 [facility] 6:06 [facility] NEUTROPHILS % 54.7 % 08/14/2020 [facility] (AUTO) - PMC 6:06 [facility] LYMPHOCYTES % 23.0 % 08/14/2020 [facility] (AUTO) - PMC 6:06 [facility] MONOCYTES % 18.2 % 08/14/2020 [facility] (AUTO) - PMC 6:06 [facility] EOSINOPHILS % 2.5 NOT 08/14/2020 [facility] (AUTO) - PMC ESTABLISHED % 6:06 [facility] BASOPHILS % 0.8 % 08/14/2020 [facility] (AUTO) - PMC 6:06 [facility] Immature 0.8 % 08/14/2020 [facility] Granulocyte % 6:06 [facility] (Auto) [facility] NUCLEATED RBC % 0.0 % 08/14/2020 [facility] (AUTO) - PMC 6:06 [facility] NEUTROPHILS # 2.8 1.5 - 6.6 10 08/14/2020 [facility] (AUTO) - PMC 3/uL 6:06 [facility] LYMPHOCYTES # 1.2 1.0 - 3.5 10 08/14/2020 [facility] (AUTO) - PMC 3/uL 6:06 [facility] MONOCYTES # 0.9 <1.0 10 3/uL 08/14/2020 [facility] (AUTO) - PMC 6:06 [facility] EOSINOPHILS # 0.1 <0.7 10 3uL 08/14/2020 [facility] (AUTO) - PMC 6:06 [facility] Absolute 0.04 <0.06 10 3/uL 08/14/2020 [facility] Immature 6:06 [facility] DIFFERENTIAL Auto 08/14/2020 [facility] METHOD Differential 5:52 [facility] Specimen Anatomical Collection Method Collection Time Receive d Time (Source) Location / / Volume Laterality 08/14/2020 5:03 08/14/2020 5 :51 EDT EDT Narrative [facility] - 08/14/2020 6 :11 EDT Comment ENOXAPARIN MONITORING Jayesh Olmos MD PACKAGES & DNA PROBE ORDERAB LES Performing Organization Address City/State/ZIP Code Phon e Number [facility] [address] [place] [address] documented in this encounter Visit Diagnoses Not on filedocumented in this encounter Care Teams Multiskill Operator Relationship Specialty Start Date End Date Katia Stone PA-C PCP - General 05/02/17 [address] [place] [phone] documented as of this encounter
--- OUTSIDE RECORDS SUMMARY | 2022-01-31 15:59 | XMS_ITS | Encounter Summary ---
:1950 Author Organization [facility] Address [address] [place] [address] Care Team Providers Name Role Phone Katia Stone PA-C Primary Care Provider Reason for Visit Reason Comments Diarrhea Extremity Weakness Alcohol Problem Palliative Care Symptom Management Encounter Details Date Type Department Care Team Description 08/25/2020 External Contact [facility] Cooper Stinson MD Frailty (Primary Dx); - [address] ETOH abus e; [facility] Grief; [facility] Palliative care by [address] [place] [phone] (Wo rk) Social History Tobacco Use [...] chronic ETOH use who was admitted to [facility] with weakness, diarrhea, and regular ETOH [...] be receptive to formal psychotherapy. A bereavement tester rocket engine through [facility] may be a good fit as well. Re: his advance directive. 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 Could trial diclofenac gel PRN as well (1 %, TID topically PRN) - continue rehab effort - he is a full code Thank you for involving us in Tim's care. See Annette Rider's Palliative Care Social Work notes in [employer] for additional information. Present for Visit: Tim, [...] his heart attack and was transferred to [place]. He has had several cardiac issues since. He is originally from [place] and lived in the [place] area until 2018 when his medical issues became more acute. S shannan then, he has lived in [place], had lived with his son Tyrese until his and more recently living with Tyrese's partner Whitney. He was raised on a farm in [place] with 7 siblings. He farmed himself, [...] Stinson MD 08/25/2020 16:11 Site of Visit: [facility] I spent a total of [...] documented in this encounter Care Teams Gate Tender Relationship Specialty Start Date End Date Katia Stone PA-C PCP - General 05/02/17 [address] [place] [phone] documented as of this encounter
--- OUTSIDE RECORDS SUMMARY | 2022-01-31 15:59 | XMS_ITS | Encounter Summary ---
:1950 Author Organization [facility] Address [address] [place] [address] Care Team Providers Name Role Phone Katia Stone PA-C Primary Care Provider Reason for Visit (Routine/Next Available) - New Request Specialty Diagnoses / Procedures Referred By Contact Refer red To Contact Procedures Unknown, Provider, CT OUTSIDE IMAGES BODY Phone: Referral ID Status Reason Start Date Expiration Date Visits V isits Requested Authorized [id number] New Request 06/20/2021 1 1 Encounter Details Date Type Department Care Team Description 06/20/2021 Hospital Encounter [facility] Center Secondary Reads [place] Social [...] OUTSIDE IMAGES BODY (06/20/2021 15:36 EDT) Specimen (Source) Anatomical Location Collection Method / Collectio n Time Received Time / Laterality Volume Narrative 06/20/2021 15:36 EDT This is a non-reportable exam. Provider Unknown MD DAVIS OTHER IMAGING ORDERABLES documented in this encounter Visit Diagnoses Not on filedocumented in this encounter Care Teams Financial Consultant Relationship Specialty Start Date End Date Katia Stone PA-C PCP - General 05/02/[address] [place] [phone] documented as of this encounter
--- OUTSIDE RECORDS SUMMARY | 2022-01-31 15:59 | XMS_ITS | Encounter Summary ---
:[address] [facility] Address [address] [place] [address] Care Team Providers Name Role Phone Katia Stone PA-C Primary Care Provider Reason for Visit Reason Onset Date Comments Discuss Possible Transfer 06/20/2021 Encounter Details Date Type Department Care Team Description 06/20/2021 Telephone [facility] Jeancarlos-Amos Carver D iscuss Possible MEDICINE MD Transfer [address] [place] [address] [facility] [address] [place] [address] (Wo rk) Social History Tobacco [...] 06/20/2021 1415 EDT PPS Call Requesting Facility: [facility] Requesting Provider: Dr. Alegria Date: 06/20/21 Time [...] effusion (per read from imaging 08/08/20 from [facility], thisis chronic) and R iliac + [...] on filedocumented in this encounter Care Teams Strip Presser Relationship Specialty Start Date End Date Katia Stone PA-C PCP - General 05/02/17 [address] [place] [phone] documented as of this encounter
--- OUTSIDE RECORDS SUMMARY | 2022-01-31 15:59 | XMS_ITS | Encounter Summary ---
:[address] [facility] Address [address] [place] [address] Care Team Providers Name Role Phone Katia Stone PA-C Primary Care Provider Encounter Details Date Type Department Care Team Description 08/11/2020 Results Only [facility] - [facility]mos, [facility] [address] [place] [address] [place], [place] [phone] (Wo rk) Social History Tobacco Use [...] encounter Results OVA/PARASITE EXAM (08/11/2020 14:50 EDT) Analysis Performed At Patho logist Time Signature PARASITE ID - SEE NOTES 08/14/2020 [facility] 15:34 T [facility] Comment: RESULT: No ova and parasites seen. Source:stool (If Cryptosporidium, Cyclospora, or Micr osporidium are suspected, specific tests must be reques chase.) Single negative specimen does not rule out the possibility of a parasitic infection. Test performed or referred by [facility] [place] [id number] Specimen Anatomical Collection Method Collection Time Receive d Time (Source) Location / / Volume Laterality 08/11/2020 14:50 08/12/2020 EDT 14:54 EDT Narrative [facility] - 08/14/2020 1 5:34 EDT stool Jayesh Olmos MD MICROBIOLOGY - GENERAL ORDER IRWIN Performing Organization Address City/State/ZIP Code Phon e Number [facility] [address] [place] [address] FECAL BACTERIAL PATHOGENS BY PCR (08/11/2020 14:50 EDT) Patholo gist Method Time Signature Salmonella PCR Negative Negative 08/13/2020 [facility] 19:57 T [facility] Shigella/Enteroin Negative Negative 08/13/2020 [facility] vasive E. coli 19:57 [facility] HN LAB Negative Negative 08/13/2020 [facility] CAMPYLOBACTER PCR 19:57 [facility] Shiga Toxin PCR Negative Negative 08/14/2020 [facility] 7:29 [facility] Comment: Test performed or referred by [facility] [place] [id number] Specimen Anatomical Collection Method Collection Time Receive d Time (Source) Location / / Volume Laterality 08/11/2020 14:50 08/12/2020 EDT 14:53 EDT Jayesh Olmos MD MICROBIOLOGY - GENERAL ORDER IRWIN Performing Organization Address City/State/ZIP Code Phon e Number [facility] [address] [place] [address] documented in this encounter Visit Diagnoses Not on filedocumented in this encounter Care Teams Division Commander Relationship Specialty Start Date End Date Katia Stone, PABijalC PCP - General 05/02/17 [address] [place] [phone] documented as of this encounter
--- OUTSIDE RECORDS SUMMARY | 2022-01-31 15:59 | XMS_ITS | Encounter Summary ---
:[address] [facility] Address [address] [place] [address] Care Team Providers Name Role Phone Katia Stone PA-C Primary Care Provider Encounter Details Date Type Department Care Team Description 08/22/2020 Results Only [email or web address] Rowan Abad NP [phone] [place] [phone] (Wo rk) Social History Tobacco Use [...] this encounter Results MAGNESIUM (08/22/2020 5:30 EDT) athologist Signature Magnesium 1.8 1.8 - 2.4 08/22/2020 [facility] mg/dl 6:03 T [facility] LAB Specimen Anatomical Collection Method Collection Time Receive d Time (Source) Location / / Volume Laterality 08/22/2020 5:30 08/22/2020 5 :39 EDT EDT Rowan Abad NP CHEMISTRY & BLOOD GAS ORDERA BLES Performing Organization Address City/State/ZIP Code Phon e Number [facility] [address] [place] [address] (ABNORMAL) BASIC METABOLIC PANEL (BMP) (08/22/2020 5:30 EDT) athologist Signature Sodium 133 (L) 136 - 145 08/22/2020 [facility] mEq/L 6:03 [facility] Potassium 3.7 3.5 - 5.1 08/22/2020 [facility] mEq/L 6:03 [facility] Chloride 101 96 - 107 08/22/2020 [facility] mEq/L 6:03 [facility] CO2 Total 26.1 21 - 32 08/22/2020 [facility] mEq/L 6:03 [facility] Anion Gap 6.9 mEq/L 08/22/2020 [facility] 6:03 [facility] BUN 8 7 - 25 08/22/2020 [facility] mg/dl 6:03 [facility] Creatinine 0.67 (L) 0.70 - 08/22/2020 [facility] 1.30 mg/dl 6:03 [facility] Estimated GFR >60 >60 08/22/2020 [facility] 6:03 [facility] Comment: EGFR UNITS: mL/min/1.73 m 2 CKD-EPI Equation used to calculate. Glucose 94 74 - 106 mg/dl 08/22/2020 6:03 EDT [facility] Calcium 8.2 (L) 8.5 - 10.1 mg/dl 08/22/2020 6:03 EDT [facility] Specimen Anatomical Collection Method Collection Time Receive d Time (Source) Location / / Volume Laterality 08/22/2020 5:30 08/22/2020 5 :39 EDT EDT Rowan Abad NP CHEMISTRY & BLOOD GAS ORDERA BLES Performing Organization Address City/State/ZIP Code Phon e Number [facility] [address] [place] [address] (ABNORMAL) COMPLETE BLOOD COUNT AND DIFFERENTIAL (08/22/2020 5:30 EDT) Component Value Ref Range Test Analysis Performed Pathologis t Method Time At Signature WBC 6.0 4.0 - 10.5 10 08/22/2020 [facility] 3/uL 5:56 [facility] RBC 2.84 (L) 4.70 - 6.00 08/22/2020 [facility] 10 6/uL 5:56 [facility] Hemoglobin 10.0 (L) 13.5 - 18.0 08/22/2020 [facility] g/dL 5:56 [facility] HCT 28.3 (L) 42.0 - 52.0 % 08/22/2020 [facility] 5:56 [facility] MCV 99.6 78 - 100 fL 08/22/2020 [facility] 5:56 [facility] MCH 35.2 (H) 27 - 31 pg 08/22/2020 [facility] 5:56 [facility] MCHC 35.3 32 - 37 g/dL 08/22/2020 [facility] 5:56 [facility] RDW-CV - PMC 14.3 <14.7 % 08/22/2020 [facility] 5:56 [facility] PLATELET COUNT 209 150 - 450 10 08/22/2020 [facility] - PMC 3/uL 5:56 [facility] MPV 11.7 9.2 - 12.0 fL 08/22/2020 [facility] 5:56 [facility] NEUTROPHILS % 58.1 % 08/22/2020 [facility] (AUTO) - PMC 5:56 [facility] LYMPHOCYTES % 22.9 % 08/22/2020 [facility] (AUTO) - PMC 5:56 [facility] MONOCYTES % 14.4 % 08/22/2020 [facility] (AUTO) - PMC 5:56 [facility] EOSINOPHILS % 3.3 NOT 08/22/2020 [facility] (AUTO) - PMC ESTABLISHED % 5:56 [facility] BASOPHILS % 1.0 % 08/22/2020 [facility] (AUTO) - PMC 5:56 [facility] Immature 0.3 % 08/22/2020 [facility] Granulocyte % 5:56 [facility] (Auto[facility] LAB NUCLEATED RBC % 0.0 % 08/22/2020 [facility] (AUTO) - PMC 5:56 [facility] NEUTROPHILS # 3.5 1.5 - 6.6 10 08/22/2020 [facility] (AUTO) - PMC 3/uL 5:56 [facility] LYMPHOCYTES # 1.4 1.0 - 3.5 10 08/22/2020 [facility] (AUTO) - PMC 3/uL 5:56 [facility] MONOCYTES # 0.9 <1.0 10 3/uL 08/22/2020 [facility] (AUTO) - PMC 5:56 [facility] EOSINOPHILS # 0.2 <0.7 10 3/uL 08/22/2020 [facility] (AUTO) - PMC 5:56 [facility] BASOPHILS # 0.1 <0.1 10 3/uL 08/22/2020 [facility] (AUTO) - PMC 5:56 [facility] Absolute 0.02 <0.06 10 3/uL 08/22/2020 [facility] Immature 5:56 [facility] CENTER LAB DIFFERENTIAL Auto 08/22/2020 [facility] METHOD Differential 5:41 [facility] Specimen Anatomical Collection Method Collection Time Receive d Time (Source) Location / / Volume Laterality 08/22/2020 5:30 08/22/2020 5 :39 EDT EDT Rowan Abad DATA ENTRY CLERK PACKAGES & DNA PROBE ORDERAB LES Performing Organization Address City/State/ZIP Code Phon e Number [facility] [address] [place] [address] documented in this encounter Visit Diagnoses Not on filedocumented in this encounter Care Teams Speeder Worker Relationship Specialty Start Date End Date Katia Stone PA-C PCP - General 05/02/[address] [facility] [phone] documented as of this encounter
--- OUTSIDE RECORDS SUMMARY | 2022-01-31 15:59 | XMS_ITS | Encounter Summary ---
:1950 Author Organization [facility] Address [address] [place] [address] Care Team Providers Name Role Phone Katia Stone PA-C Primary Care Provider Encounter Details Date Type Department Care Team Description 08/25/[address] [facility] Outr Resulting Lab, Pathology & Laboratory Provider [facility] [address] [place] [address] Social History Tobacco Use Types [...] VIRUS MOLECULAR DETECTION, PCR (08/25/2020 14:15 EDT) Analysis Performed At Patho logist Time Signature Herpes Simplex Negative Negative 08/26/2020 [facility] Virus 17:16 EDT CENTER Molecular LABORATORY Detection 1, SERVICES PCR Herpes Simplex Negative Negative 08/26/2020 [facility] Virus 17:16 EDT CENTER Molecular LABORATORY Detection 2, SERVICES PCR Specimen Anatomical Collection Method Collection Time Receive d Time (Source) Location / / Volume Laterality Swab ENTIRE UPPER LIMB 08/25/2020 14:15 2020 / Unknown EDT 21:20 EDT Provider Outr Resulting Lab MICROBIOLOGY - GENERAL ORD ERABLES Performing Organization Address City/State/ZIP Code Phon e Number [facility] [address] [place] [address] SERVICES documented in this encounter Visit Diagnoses Not on filedocumented in this encounter Care Teams Painter Ski Edge Relationship Specialty Start Date End Date Katia Stone PA-C PCP - General 05/02/17 [address] [place] [phone] documented as of this encounter
--- OUTSIDE RECORDS SUMMARY | 2022-01-31 15:59 | XMS_ITS | Encounter Summary ---
:1950 Author Organization [facility] Address [address] [place] [address] Care Team Providers Name Role Phone Katia Stone PA-C Primary Care Provider Encounter Details Date Type Department Care Team Description 09/05/2020 Results Only [facility] Rowan Abad NP [phone] [place] [phone] (Wo rk) Social History Tobacco Use [...] BLOOD COUNT AND DIFFERENTIAL (09/05/2020 14:30 EDT) Component Value Ref Range Test Analysis Performed Pathologis t Method Time At Signature WBC 6.4 4.0 - 10.5 10 09/05/2020 [facility] 3/uL 14:58 [facility] RBC 3.40 (L) 4.70 - 6.00 09/05/2020 [facility] 10 6/uL 14:58 [facility] Hemoglobin 11.6 (L) 13.5 - 18.0 09/05/2020 [facility] g/dL 14:58 [facility] HCT 33.9 (L) 42.0 - 52.0 % 09/05/2020 [facility] 14:58 [facility] MCV 99.7 78 - 100 fL 09/05/2020 [facility] 14:58 [facility] MCH 34.1 (H) 27 - 31 pg 09/05/2020 [facility] 14:58 [facility] MCHC 34.2 32 - 37 g/dL 09/05/2020 [facility] 14:58 [facility] RDW-CV - PMC 13.1 <14.7 % 09/05/2020 [facility] 14:58 [facility] PLATELET COUNT 253 150 - 450 10 09/05/2020 [facility] - PMC 3/uL 14:58 [facility] MPV 10.9 9.2 - 12.0 fL 09/05/2020 [facility] 14:58 [facility] NEUTROPHILS % 57.6 % 09/05/2020 [facility] (AUTO) - PMC 14:58 [facility] LYMPHOCYTES % 25.0 % 09/05/2020 [facility] (AUTO) - PMC 14:58 [facility] MONOCYTES % 13.3 % 09/05/2020 [facility] (AUTO) - PMC 14:58 [facility] EOSINOPHILS % 2.7 NOT 09/05/2020 [facility] (AUTO) - PMC ESTABLISHED % 14:58 [facility] BASOPHILS % 1.1 % 09/05/2020 [facility] (AUTO) - PMC 14:58 [facility] Immature 0.3 % 09/05/2020 [facility] Granulocyte % 14:58 [facility] (Auto) CENTER LAB NUCLEATED RBC % 0.0 % 09/05/2020 [facility] (AUTO) - PMC 14:58 [facility] NEUTROPHILS # 3.7 1.5 - 6.6 10 09/05/2020 [facility] (AUTO) - PMC 3/uL 14:58 [facility] LYMPHOCYTES # 1.6 1.0 - 3.5 10 09/05/2020 [facility] (AUTO) - PMC 3/uL 14:58 [facility] MONOCYTES # 0.9 <1.0 10 3/uL 09/05/2020 [facility] (AUTO) - PMC 14:58 [facility] EOSINOPHILS # 0.2 <0.7 10 3/uL 09/05/2020 [facility] (AUTO) - PMC 14:58 [facility] BASOPHILS # 0.1 <0.1 10 3/uL 09/05/2020 [facility] (AUTO) - PMC 14:58 [facility] Absolute 0.02 <0.06 10 3/uL 09/05/2020 [facility] Immature 14:58 [facility] DIFFERENTIAL Auto 09/05/2020 [facility] METHOD Differential 14:36 [facility] Specimen Anatomical Collection Method Collection Time Receive d Time (Source) Location / / Volume Laterality 09/05/2020 14:30 09/05/2020 EDT 14:35 EDT Rowan Abad NP PACKAGES & DNA PROBE ORDERAB LES Performing Organization Address City/State/ZIP Code Phon e Number [facility] [address] [place] [address] MAGNESIUM (09/05/2020 14:30 EDT) athologist Signature Magnesium 1.8 1.8 - 2.4 09/05/2020 [facility] mg/dl 14:57 [facility] Specimen Anatomical Collection Method Collection Time Receive d Time (Source) Location / / Volume Laterality 09/05/2020 14:30 09/05/2020 EDT 14:35 EDT Rowan Abad REMOTE SENSING PROGRAM MANAGER CHEMISTRY & BLOOD GAS ORDERA BLES Performing Organization Address City/[facility]/ZIP Code Phon e Number [facility] [address] [place] [address] (ABNORMAL) BASIC METABOLIC PANEL (BMP) (09/05/2020 14:30 EDT) P athologist Signature Sodium 132 (L) 136 - 145 09/05/2020 [facility] mEq/L 14:57 [facility] Potassium 4.3 3.5 - 5.1 09/05/2020 [facility] mEq/L 14:57 [facility] Chloride 99 96 - 107 09/05/2020 [facility] mEq/L 14:57 [facility] CO2 Total 26.5 21 - 32 09/05/2020 [facility] mEq/L 14:57 [facility] Anion Gap 6.5 mEq/L 09/05/2020 [facility] 14:57 [facility] BUN 12 7 - 25 09/05/2020 [facility] mg/dl 14:57 [facility] Creatinine 0.60 (L) 0.70 - 09/05/2020 [facility] 1.30 mg/dl 14:57 [facility] Estimated GFR >60 >60 09/05/2020 [facility] 14:57 [facility] Comment: EGFR UNITS: mL/min/1.73 m 2 CKD-EPI Equation used to calculate. Glucose 100 74 - 106 mg/dl 09/05/2020 14:57 EDT [facility] Calcium 8.6 8.5 - 10.1 mg/dl 09/05/2020 14:57 EDT [facility] Specimen Anatomical Collection Method Collection Time Receive d Time (Source) Location / / Volume Laterality 09/05/2020 14:30 09/05/2020 EDT 14:35 EDT Rowan Abad REMOTE SENSING PROGRAM MANAGER CHEMISTRY & BLOOD GAS ORDERA BLES Performing Organization Address City/[facility]/ZIP Code Phon e Number [facility] [address] [place] [address] documented in this encounter Visit Diagnoses Not on filedocumented in this encounter Care Teams Glassware Finisher Relationship Specialty Start Date End Date Katia Stone, BELLAC PCP - General 05/02/17 [address] [place] [phone] documented as of this encounter
--- OUTSIDE RECORDS SUMMARY | 2022-01-31 15:59 | XMS_ITS | Encounter Summary ---
:1950 Author Organization [facility] Address [address] [place] [address] Care Team Providers Name Role Phone Katia Stone PA-C Primary Care Provider Reason for Visit Reason Onset Date Comments Appointment Related 06/22/2020 Encounter Details Date Type Department Care Team Description 06/22/2020 Telephone [facility] Cherie Browne MD Appointment Related Cardiothoracic Surgery - [address] [place] [address], [address], [address] [place], [place] [address] [place] [address] [phone] (Wo rk) Social History Tobacco Use [...] on filedocumented in this encounter Care Teams Boom Supervisor Relationship Specialty Start Date End Date Katia Stone PA-C PCP - General 05/02/[address] [place] [phone] documented as of this encounter
--- OUTSIDE RECORDS SUMMARY | 2022-01-31 15:59 | XMS_ITS | Encounter Summary ---
:1950 Author Organization [facility] Address [address] [place] [address] Care Team Providers Name Role Phone Katia Stone PA-C Primary Care Provider Encounter Details Date Type Department Care Team Description 08/19/2020 Results Only [facility] - [facility] [address] [place], [place] [phone] (Wo rk) Social History Tobacco Use [...] BASIC METABOLIC PANEL (BMP) (08/19/2020 7:10 EDT) athologist Signature Sodium 134 (L) 136 - 145 08/19/2020 [facility] mEq/L 7:41 [facility] Potassium 3.5 3.5 - 5.1 08/19/2020 [facility] mEq/L 7:41 [facility] Chloride 99 96 - 107 08/19/2020 [facility] mEq/L 7:41 [facility] CO2 Total 29.4 21 - 32 08/19/2020 [facility] mEq/L 7:41 [facility] Anion Gap 5.6 mEq/L 08/19/2020 [facility] 7:41 [facility] BUN 8 7 - 25 08/19/2020 [facility] mg/dl 7:41 [facility] Creatinine 0.48 (L) 0.70 - 08/19/2020 [facility] 1.30 mg/dl 7:41 [facility] Estimated GFR >60 >60 08/19/2020 [facility] 7:41 [facility] Comment: EGFR UNITS: mL/min/1.73 m 2 CKD-EPI Equation used to calculate. Glucose 93 74 - 106 mg/dl 08/19/2020 7:41 T [facility] Calcium 8.3 (L) 8.5 - 10.1 mg/dl 08/19/2020 7:41 T [facility] Specimen Anatomical Collection Method Collection Time Receive d Time (Source) Location / / Volume Laterality 08/19/2020 7:10 08/19/2020 7 :13 EDT EDT Junior Ray MD CHEMISTRY & BLOOD GAS ORDERA BLES Performing Organization Address City/State/ZIP Code Phon e Number [facility] [address] [place] [address] documented in this encounter Visit Diagnoses Not on filedocumented in this encounter Care Teams Obstetrical Nurse Relationship Specialty Start Date End Date Katia Stone PA-C PCP - General 05/02/[address] [place] [phone] documented as of this encounter
--- OUTSIDE RECORDS SUMMARY | 2022-01-31 15:59 | XMS_ITS | Encounter Summary ---
:1950 Author Organization [facility] Address [address] [place] [address] Care Team Providers Name Role Phone Katia Stone PA-C Primary Care Provider Encounter Details Date Type Department Care Team Description 08/13/2020 Lab Requisition [facility] Outr Resulting Lab, Pathology & Laboratory Provider [facility] [address] [place] [address] Social History Tobacco Use Types [...] BACTERIAL PATHOGENS BY PCR (08/11/2020 14:50 EDT) [facility] Method Time Signature Salmonella PCR Negative Negative 08/13/2020 [facility] MEDICAL 19:51 EDT CENTER LABORATORY SERVICES Shigella/Enteroin Negative Negative 08/13/2020 [facility] vasive E. coli 19:51 EDT CENTER LABORATORY SERVICES HN LAB Negative Negative 08/13/2020 [facility] CAMPYLOBACTER PCR 19:51 EDT CENTER LABORATORY SERVICES Shiga Toxin PCR Negative Negative 08/13/2020 [facility] 19:51 EDT CENTER LABORATORY SERVICES Specimen Anatomical Collection Method Collection Time Receive d Time (Source) Location / / Volume Laterality Feces SPECIMEN FROM 08/11/2020 14:50 08/13/2020 [facility] / Unknown EDT 15:22 EDT Provider Outr Resulting Lab MICROBIOLOGY - GENERAL ORD ERABLES Performing Organization Address City/State/ZIP Code Phon e Number [facility] [address] [place] [address] SERVICES documented in this encounter Visit Diagnoses Not on filedocumented in this encounter Care Teams Cell Reliner Relationship Specialty Start Date End Date Katia Stone, MINGO PCP - General 05/02/17 [address] [place] [phone] documented as of this encounter
--- OUTSIDE RECORDS SUMMARY | 2022-01-31 15:59 | XMS_ITS | Encounter Summary ---
:1950 Author Organization [facility] Address [address] [place] [address] Care Team Providers Name Role Phone Katia Stone PA-C Primary Care Provider Encounter Details Date Type Department Care Team Description 08/13/2020 Lab Requisition [facility] Outr Resulting Lab, Pathology & Laboratory Provider [facility] [address] [place] [address] Social History Tobacco Use Types [...] encounter Results OVA/PARASITE EXAM (08/11/2020 14:50 EDT) [facility] Method Time Signature Parasite No ova and 08/14/2020 [facility] parasites 11:44 EDT CENTER seen. LABORATORY SERVICES Specimen Anatomical Collection Method Collection Time Receive d Time (Source) Location / / Volume Laterality Feces SPECIMEN FROM 08/11/2020 14:50 08/13/2020 [facility] / Unknown EDT 15:22 EDT Narrative [facility] - 08/14/2020 11:44 EDT (If Cryptosporidium, Cyclospora, or Micr osporidium are suspected, specific tests must be requested.) Single negative specimen does not rule out the possibility of a parasitic infection. Provider Outr Resulting Lab MICROBIOLOGY - GENERAL ORD ERABLES Performing Organization Address City/State/ZIP Code Phon e Number [facility] [address] [place] [address] SERVICES documented in this encounter Visit Diagnoses Not on filedocumented in this encounter Care Teams Interior Design Program Chair Relationship Specialty Start Date End Date Katia Stone PA-C PCP - General 05/02/[address] [place] [phone] documented as of this encounter
--- OUTSIDE RECORDS SUMMARY | 2022-01-31 15:59 | XMS_ITS | Encounter Summary ---
:1950 Author Organization [facility] Address [address] [place] [address] Care Team Providers Name Role Phone Katia Stone PA-C Primary Care Provider Encounter Details Date Type Department Care Team Description 08/16/2020 Results Only [facility] - Junior Ruiz MD [facility] Lab [address] [place], [place] [phone] (Wo rk) Social History Tobacco Use [...] BASIC METABOLIC PANEL (BMP) (08/16/2020 5:20 EDT) athologist Signature Sodium 137 136 - 145 08/16/2020 [facility] mEq/L 5:50 [facility] Potassium 3.5 3.5 - 5.1 08/16/2020 [facility] mEq/L 5:50 [facility] Chloride 103 96 - 107 08/16/2020 [facility] mEq/L 5:50 [facility] CO2 Total 28.1 21 - 32 08/16/2020 [facility] mEq/L 5:50 [facility] Anion Gap 5.9 mEq/L 08/16/2020 [facility] 5:50 [facility] BUN 14 7 - 25 08/16/2020 [facility] mg/dl 5:50 [facility] Creatinine 0.57 (L) 0.70 - 08/16/2020 [facility] 1.30 mg/dl 5:50 [facility] Estimated GFR >60 >60 08/16/2020 [facility] 5:50 [facility] Comment: EGFR UNITS: mL/min/1.73 m 2 CKD-EPI Equation used to calculate. Glucose 86 74 - 106 mg/dl 08/16/2020 5:50 T [facility] Calcium 8.0 (L) 8.5 - 10.1 mg/dl 08/16/2020 5:50 EDT [facility] Specimen Anatomical Collection Method Collection Time Receive d Time (Source) Location / / Volume Laterality 08/16/2020 5:20 08/16/2020 5 :29 EDT EDT Junior Ray MD CHEMISTRY & BLOOD GAS ORDERA BLES Performing Organization Address City/State/ZIP Code Phon e Number [facility] [address] [place] [address] (ABNORMAL) COMPLETE BLOOD COUNT (08/16/2020 5:20 EDT) [facility] gist Method Time Signature WBC 5.0 4.0 - 10.5 08/16/2020 [facility] 10 3/[facility]L 5:[facility] RBC 2.65 (L) 4.70 - 08/16/2020 [facility] 6.00 10 5:46 EDT MEDICAL 6/uL CENTER LAB Hemoglobin 9.3 (L) 13.5 - 08/16/2020 [facility] 18.0 g/dL 5:46 [facility] HCT 27.3 (L) 42.0 - 08/16/2020 [facility] 52.0 % 5:46 [facility] MCV 103.0 (H) 78 - 100 08/16/2020 [facility] fL 5:46 [facility] MCH 35.1 (H) 27 - 31 pg 08/16/2020 [facility] 5:46 [facility] MCHC 34.1 32 - 37 08/16/2020 [facility] g/dL 5:46 [facility] RDW-CV - PMC 15.1 (H) <14.7 % 08/16/2020 [facility] 5:46 [facility] PLATELET COUNT 202 150 - 450 08/16/2020 [facility] - PMC 10 3/uL 5:46 [facility] MPV 10.1 9.2 - 12.0 08/16/2020 [facility] fL 5:46 [facility] Specimen Anatomical Collection Method Collection Time Receive d Time (Source) Location / / Volume Laterality 08/16/2020 5:20 08/16/2020 5 :29 EDT EDT Junior Ray MD HEMATOLOGY & PF4 ORDERABLES Performing Organization Address City/State/ZIP Code Phon e Number [facility] [address] [place] [address] documented in this encounter Visit Diagnoses Not on filedocumented in this encounter Care Teams Pcas Relationship Specialty Start Date End Date Katia Stone PABijalC PCP - General 05/02/17 [address] [place] [phone] documented as of this encounter
--- OUTSIDE RECORDS SUMMARY | 2022-01-31 15:59 | XMS_ITS | Encounter Summary ---
:1950 Author Organization [facility] Address [address] [place] [address] Care Team Providers Name Role Phone Katia Stone PA-C Primary Care Provider Encounter Details Date Type Department Care Team Description 08/08/2020 Results Only [facility] Virginia Quintana MD Dermatology - [facility] [address] [place], [place] [phone] [place], [place] [id number] [phone] Social History Tobacco Use Types Packs/Day Years [...] TEST REQUEST - PMC (08/08/2020 21:17 EDT) Analysis Performed At Patho logist Time Signature Special ADD ON 08/08/2020 [facility] Requests DONE 21:57 EDT [facility] Comment: All tests (see tests in sample comments) have been added as requested. Specimen Anatomical Collection Method Collection Time Receive d Time (Source) Location / / Volume Laterality 08/08/2020 21:17 08/08/2020 EDT 21:57 EDT Narrative [facility] - 08/08/2020 2 1:57 EDT ED this evening Mg Virginia Quintana MD CHEMISTRY & BLOOD GAS ORDERA BLES Performing Organization Address City/[facility]/ZIP Code Phon e Number [facility] [address] [place] [address] (ABNORMAL) MAGNESIUM (08/08/2020 16:47 EDT) P athologist Signature Magnesium 1.7 (L) 1.8 - 2.4 08/08/2020 [facility] mg/dl 22:02 EDT [facility] Specimen Anatomical Collection Method Collection Time Receive d Time (Source) Location / / Volume Laterality 08/08/2020 16:47 08/08/2020 EDT 16:52 EDT Virginia Quintana MD CHEMISTRY & BLOOD GAS ORDERA BLES Performing Organization Address City/[facility]/ZIP Code Phon e Number [facility] [address] [place] [address] documented in this encounter Visit Diagnoses Not on filedocumented in this encounter Care Teams Project Manager Interior Design Relationship Specialty Start Date End Date Katia Stone PA-C PCP - General 05/02/[address] [place] [phone] documented as of this encounter
--- OUTSIDE RECORDS SUMMARY | 2022-01-31 15:59 | XMS_ITS | Encounter Summary ---
:[address] [facility] Address [address] [place] [address] Care Team Providers Name Role Phone Katia Stone PA-C Primary Care Provider Encounter Details Date Type Department Care Team Description 09/14/2020 Results Only [facility] Rowan Abad NP [phone] [place] [phone] (Wo rk) Social History Tobacco Use [...] Results (ABNORMAL) PLATELET COUNT (09/14/2020 5:35 EDT) athologist Signature PLATELET COUNT 94 (L) 150 - 450 09/14/2020 [facility] 10 3/uL 6:07 EDT CENTER LAB Specimen Anatomical Collection Method Collection Time Receive d Time (Source) Location / / Volume Laterality 09/14/2020 5:35 09/14/2020 5 :46 EDT EDT Narrative LAB - 09/14/2020 6 :16 EDT Comment ENOXAPARIN MONITORING Rowan Abad NP HEMATOLOGY & PF4 ORDERABLES Performing Organization Address City/[facility]/ZIP Code [facility] [address] [place] [address] (ABNORMAL) CREATININE WITH GFR - PMC (09/14/2020 5:35 EDT) athologist Signature Creatinine 0.58 (L) 0.70 - 09/14/2020 [place] 1.30 mg/dl 6:09 [facility] Estimated GFR >60 >60 09/14/2020 [place] 6:09 [facility] Comment: EGFR UNITS: mL/min/1.73 m 2 CKD-EPI Equation used to calculate. Specimen Anatomical Collection Method Collection Time Receive d Time (Source) Location / / Volume Laterality 09/14/2020 5:35 09/14/2020 5 :46 EDT EDT Rowan Abad NP CHEMISTRY & BLOOD GAS ORDERA BLES Performing Organization Address City/[facility] [address] [place] [address] documented in this encounter Visit Diagnoses Not on filedocumented in this encounter Care Teams Chemical Plant Technical Director Relationship Specialty Start Date End Date Katia Stone PA-C PCP - General 05/02/[address] [place] [phone] documented as of this encounter
--- OUTSIDE RECORDS SUMMARY | 2022-01-31 15:59 | XMS_ITS | Encounter Summary ---
:1950 Author Organization [facility] Address [address] [place] [address] Care Team Providers Name Role Phone Katia Stone PA-C Primary Care Provider Reason for Visit Reason Onset Date Comments Other 06/07/[address] Mihir rama [place] Other 06/08/2020 mailed pre-op instru ctions to patient Encounter Details Date Type Department Care Team Description 06/07/2020 Telephone [facility] Cherie Browne MD Other (questions for Cardiothoracic Surgery - [address] [facility] [address] Surgery RN); Other Main [facility] (mailed pre-op [address] [facility] [place], Level 5 instructions to [place], [place] [address] [place] [address] patient) [phone] (Wo rk) Social History Tobacco Use [...] EDT Pre-op instructions mailed to patient at: [address] [place] [address] Address updated in [facility]. Telephone Encounter - Cat Sutherland RN - 06/07/2020 1526 EDT Called and left message for Maru Villalobos RN at [place] PCP Fibrous Plasterer to get correct address (mailing address) for patient and then have changed in Registration as he doesn't live in [place] anymore. She was going to call us back but didn't so I asked her to call and speak with our OSS Melania Dumas so Melania can mail the pre-op instructions. I have routed JORGE Wagner. Telephone Encounter - Cat Sutherland RN - 06/07/2020 1131 EDT Images from the original note were not included. Preoperative Instructions - Cardiac Surgery Patients Welcome to the Division of Cardiothoracic Surgery at the [facility]. We look forward to making your [...] located near the Main Entrance of the Biological Sciences Professor Center at the [facility] Main [place]. Prior to surgery, you will be scheduled for an anesthesia pre-screen telephone call with the Pre-Operative Department ??? Your telephone call has been scheduled for: To Be Announced between To Be Announced and To Be Announced ??? If you do not receive an appointment for the pre-screen call within two days of this appointment, please contact our office at [phone]. We have included a local lodging list [...] days prior to your surgery. Stop Saw Borup 14 days prior to surgery. ??? Acetaminophen [...] CHANGED, CALL OUR OFFICE RIGHT AWAY AT [phone]) ??? Continue to take all of your [...] clothing. ??? Do not wear any nail lao, makeup, powder, lotion, deodorant or jewelry of [...] timely results. The Patient Access Center at [facility] will contact you with an appointment [...] APPOINTMENT CONTACT THE PATIENT ACCESS CENTER AT [phone]. ??? While waiting for your surgery, you [...] to the Surgeon's office on Level 5 [facility] Surgery Outpatient office. Note: If [...] listed below. The Division of Cardiothoracic Surgery [address] [place] [address] (Toll Free) MD Geovanni Toure MD Marek Polomsky, MD Chris Rokkas, MD /josh & ep 03/2020 Telephone Encounter - Cat Sutherland RN - 06/07/[address] Surgery Upate Maru Villalobos policy manager at [facility] [phone] EXT 7 states patient's son and and is not on Adv Directive now. Questions call Maru Villalobos. Pre-Op Instructions mailed to patient and faxed to Maru [phone]. She will review with the patient and I will as well. Check in time for surgery on 06/26 has not been confirmed yet per our Health Safety Manager. Maru will set up COVID test as he needs a cpr ambulance driver and he will also need a ride to [place] for surgery which she will arrange. Telephone Encounter - Melania Dumas - 06/07/2020 1013 EDT Maru from [place] calling with questions for CT Surgery RN. Requesting return call to [phone], extension 7. documented in this encounter Plan of Treatment Not on filedocumented as of this encounter Visit Diagnoses Diagnosis Encounter for preoperative screening lab oratory testing for COVID-19 virus - Primary documented in this encounter Care Teams Senior Manager Quality Assurance Relationship Specialty Start Date End Date Katia Stone PA-C PCP - General 05/02/17 [address] [place] [phone] documented as of this encounter
--- OUTSIDE RECORDS SUMMARY | 2022-01-31 15:59 | XMS_ITS | Encounter Summary ---
:1950 Author Organization [facility] Address [address] [place] [address] Care Team Providers Name Role Phone Katia Stone PA-C Primary Care Provider Encounter Details Date Type Department Care Team Description 08/20/2020 Results Only [facility] [address] [place] [address] [place], [place] [phone] (Wo rk) Social History Tobacco Use [...] 08/20/2020 12:51 Resu lts for this - [facility] EDT procedure are i n the results section. documented in this encounter Results ADD ON TEST REQUEST - PMC (08/20/2020 12:51 EDT) Analysis Performed At Patho logist Time Signature Special ADD ON 08/20/2020 [facility] Requests DONE 12:58 EDT [facility] Comment: All tests (see tests in sample comments) have been added as requested. Specimen Anatomical Collection Method Collection Time Receive d Time (Source) Location / / Volume Laterality 08/20/2020 12:51 08/20/2020 EDT 12:58 EDT Narrative [facility] - 08/20/2020 1 2:58 EDT today on the med/surg Magnesium Marilyn [place] MD CHEMISTRY & BLOOD GAS ORDERA BLES Performing Organization Address City/State/ZIP Code Phon e Number [facility] [address] [place] [address] documented in this encounter Visit Diagnoses Not on filedocumented in this encounter Care Teams Security Operations Specialist Relationship Specialty Start Date End Date Katia Stone, BELLAC PCP - General 05/02/[address] [facility] [phone] documented as of this encounter
--- OUTSIDE RECORDS SUMMARY | 2022-01-31 15:59 | XMS_ITS | Encounter Summary ---
:1950 Author Organization [facility] Address [address] [place] [address] Care Team Providers Name Role Phone Katia Stone PA-C Primary Care Provider Encounter Details Date Type Department Care Team Description 09/15/[address] [facility] - Junior Ruiz MD Medical Center Lab [address] [place], [place] [phone] (Wo rk) Social History Tobacco Use [...] (ABNORMAL) COMPLETE BLOOD COUNT (09/15/2020 5:25 EDT) Analysis Performed At Patho logist Time Signature WBC 6.7 4.0 - 10.5 09/15/2020 [facility] 10 3/uL 5:45 [facility] RBC 3.26 (L) 4.70 - 09/15/2020 [facility] 6.00 10 5:45 [facility] 6/uL CENTER LAB Hemoglobin 11.2 (L) 13.5 - 09/15/2020 [facility] 18.0 g/dL 5:45 [facility] HCT 31.9 (L) 42.0 - 09/15/2020 [facility] 52.0 % 5:45 [facility] MCV 97.9 78 - 100 09/15/2020 [facility] fL 5:45 [facility] MCH 34.4 (H) 27 - 31 pg 09/15/2020 [facility] 5:45 [facility] MCHC 35.1 32 - 37 09/15/2020 [facility] g/dL 5:45 [facility] RDW-CV - PMC 12.4 <14.7 % 09/15/2020 [facility] 5:45 [facility] PLATELET COUNT 256 150 - 450 09/15/2020 [facility] - PMC 10 3/uL 5:45 [facility] MPV 10.6 9.2 - 12.0 09/15/2020 [facility] fL 5:45 [facility] Specimen Anatomical Collection Method Collection Time Receive d Time (Source) Location / / Volume Laterality 09/15/2020 5:25 09/15/2020 5 :28 EDT EDT Junior Ray MD HEMATOLOGY & PF4 ORDERABLES Performing Organization Address City/State/ZIP Code Phon e Number [facility] [address] [place] [address] documented in this encounter Visit Diagnoses Not on filedocumented in this encounter Care Teams Boatbuilder Wood Relationship Specialty Start Date End Date Katia Stone, PABijalC PCP - General 05/02/17 [address] [place] [phone] documented as of this encounter
--- OUTSIDE RECORDS SUMMARY | 2022-01-31 15:59 | XMS_ITS | Encounter Summary ---
:1950 Author Organization [facility] Address [address] [place] [address] Care Team Providers Name Role Phone Katia Stone PA-C Primary Care Provider Encounter Details Date Type Department Care Team Description 09/02/2020 Results Only [facility] Rowan Abad NP [phone] [place] [phone] (Wo rk) Social History Tobacco Use [...] WITH GFR - PMC (09/02/2020 6:18 EDT) athologist Signature Creatinine 0.61 (L) 0.70 - 09/02/2020 [facility] 1.30 mg/dl 7:12 [facility] Estimated GFR >60 >60 09/02/2020 [facility] 7:12 [facility] Comment: EGFR UNITS: mL/min/1.73 m 2 CKD-EPI Equation used to calculate. Specimen Anatomical Collection Method Collection Time Receive d Time (Source) Location / / Volume Laterality 09/02/2020 6:18 09/02/2020 6 :44 EDT EDT Rowan Abad NP CHEMISTRY & BLOOD GAS ORDERA BLES Performing Organization Address City/[facility]/ZIP Code Phon e Number [facility] [address] [place] [address] PLATELET COUNT (09/02/2020 6:18 EDT) athologist Signature PLATELET COUNT 247 150 - 450 09/02/2020 [facility] 10 3/uL 6:57 EDT CENTER LAB Specimen Anatomical Collection Method Collection Time Receive d Time (Source) Location / / Volume Laterality 09/02/2020 6:18 09/02/2020 6 :[address] [facility] - 09/02/2020 7 :06 EDT Comment ENOXAPARIN MONITORING Rowan Abad NP HEMATOLOGY & PF4 ORDERABLES Performing Organization Address City/State/ZIP Code Phon e Number [facility] [address] [place] [address] documented in this encounter Visit Diagnoses Not on filedocumented in this encounter Care Teams Merchant Police Relationship Specialty Start Date End Date Katia Stone PA-C PCP - General 05/02/17 [address] [place] [phone] documented as of this encounter
--- OUTSIDE RECORDS SUMMARY | 2022-01-31 15:59 | XMS_ITS | Encounter Summary ---
:1950 Author Organization [facility] Address [address] [place] [address] Care Team Providers Name Role Phone Katia Stone PA-C Primary Care Provider Encounter Details Date Type Department Care Team Description 06/21/2021 Lab Requisition [facility] Virginia Price A cute cholecystitis Pathology & DO Laboratory Medicine - [address] [facility] [address] [place] [phone] Social History Tobacco Use Types Packs/Day Years [...] encounter Results SURGICAL PATHOLOGY (06/21/2021 11:58 EDT) Component Value Ref Test Analysis Performed At [facility] Range Method Time Signature Note to The following 06/26/2021 [facility] Patient pathology results 10:43 [facility] have been LABORATORY interpreted by SERVICES your pathologist and may be available to you before your health provider has had the opportunity to review them. Please allow time for your provider to receive these results and explore management options, if applicable. Final A. GALLBLADDER, CHOLECYSTECTOMY: 022 [facility] Diagnosis - Acute and chronic erosive cholecystitis. 10:43 [facility] LABORATORY SERVICES Attestation There was 06/26/2021 [facility] Elect ronically significant 10:43 [facility] signed shannon Ros[place] resident/fellow LABORATORY Giovanny York MD involvement in SERVICES on at the diagnostic 1043 evaluation of this case. By the signature below, the attending physician certifies that they have personally conducted a gross and/or microscopic examination of the described specimens and rendered or confirmed the above diagnosis. Clinical Cholecystitis 06/26/2021 [facility] History 10:43 [facility] LABORATORY SERVICES Gross A. 06/26/2021 [facility] Description Received in formalin edy d with proper patient identification (initials B, J) and gallbladder bile is an intact gallbladder with an attached segment of cystic duct (7.3 x 4.5 x 3.5 cm). A cystic duct lymph node is not present. 10:43 [facility] The serosa is mottled isbell-wh ite to red-brown with chowdary-white adhesions. The mucosa is denuded red-brown and the wall is 0.2 cm in thickness. The cystic duct lumen is patent and measures 0.4 cm in diamet LABORATORY er. The cystic duct margin i s inked blue. No calculi are found within the gallbladder or free-floating within the container. SERVICES Two textiles sales representative sections and the en face cystic duct margin are submitted in A1. GIRISH GOMEZ(ASCP) 06/22/2021 7:58 Resident/Chayo Preciado 06/26/2021 [facility] DARRELL SIMS w: MD Marianna 10:43 EDT CENTER LABORATORY SERVICES Performing Lab [facility] 06/26/2021 [facility] LAB 10:43 EDT CENTER LABORATORY SERVICES Scanned Images 06/26/2021 [facility] 10:43 EDT CENTER LABORATORY SERVICES Specimen Anatomical Location Collection Method Collection Time Received Time (Source) / Laterality / Volume Tissue ENTIRE GALLBLADDER 06/21/2021 11:58 06/21 / Unknown EDT 17:30 EDT Virginia Price DO PATHOLOGY ORDERABLES Performing Organization Address City/State/ZIP Code Phon e Number [facility] LABORATORY [address] [place] [address] SERVICES documented in this encounter Visit Diagnoses Diagnosis Acute cholecystitis documented in this encounter Care Teams Materials Assistant Relationship Specialty Start Date End Date Katia Stone PA-C PCP - General 05/02/17 [address] [place] [phone] documented as of this encounter
--- OUTSIDE RECORDS SUMMARY | 2022-01-31 15:59 | XMS_ITS | Encounter Summary ---
:1950 Author Organization [facility] Address [address] [place] [address] Care Team Providers Name Role Phone Katia Stone PA-C Primary Care Provider Encounter Details Date Type Department Care Team Description 08/09/2020 Results Only [facility] - Ester Valerio Imaging [facility] MD Annemarie Radiology Results [address] [place], [place] [address] [place] [phone] (Wo rk) Social History Tobacco Use [...] XR ABDOMEN 2 VIEWS (08/09/2020 8:33 EDT) Anatomical Region Laterality Modality Body Computed Radiography Specimen (Source) Anatomical Collection Method Collection Time Re ceived Time Location / / Volume Laterality 08/09/2020 8:33 EDT Narrative 08/09/2020 16:38 EDT ?[facility] ?[address] ?[place] [address] ?Diagnostic Imaging Report ? Signed ? Patient Name:DAVID FARFAN ? Date of :1950 ?MR Number:[id number] ? Age:69 ?Sex:M ? Category: CR ?Date [...] ?D/ 16 ?? 38 ?? Transcribed by: WCOBB ?D/ 1648 ?? E-Signed by: Love Erickson MD ?D/ 16 ?? 38 ?? Procedure Note Poncho Erickson MD - 08/09/2020Formchet desir of this note might be different from the original. [facility] [address] [address] Diagnostic Imaging Report Signed Patient Name:DAVID FARFAN r:[id number] Date of :1950 MR Number:[id number] Age:69 Sex:M Category: CR Date of Exam:08/09/20 Procedure: CR: Abd; 2 Views Accession: [id number] Ordering Physician: Ester Valerio MD atient CC: [...] Love Erickson MD D/T: 08/09 16 38 Ester Valerio MD IMG DIAGNOSTIC IMAGING ORDER IRWIN documented in this encounter Visit Diagnoses Not on filedocumented in this encounter Care Teams Sueding Machine Operator Relationship Specialty Start Date End Date Katia Stone PA-C PCP - General 05/02/17 [address] [place] [phone] documented as of this encounter
--- OUTSIDE RECORDS SUMMARY | 2022-01-31 15:59 | XMS_ITS | Encounter Summary ---
:1950 Author Organization [facility] Address [address] [place] [address] Care Team Providers Name Role Phone Katia Stone PA-C Primary Care Provider Encounter Details Date Type Department Care Team Description 08/09/2020 Results Only [facility] Virginia Quintana MD Dermatology - [facility] [address] [place], [place] [phone] [place], [place] [id number] [phone] Social History Tobacco Use Types Packs/Day Years [...] COMPREHENSIVE METABOLIC PANEL (CMP) (08/09/2020 5:35 EDT) athologist Signature Sodium 128 (L) 136 - 145 08/09/2020 [facility] mEq/L 6:09 EDT CENTER LAB Potassium 3.3 (L) 3.5 - 5.1 08/09/2020 [facility] mEq/L 6:09 EDT CENTER LAB Chloride 90 (L) 96 - 107 08/09/2020 [facility] mEq/L 6:09 EDT CENTER LAB CO2 Total 27.4 21 - 32 08/09/2020 [facility] mEq/L 6:09 EDT CENTER LAB Anion Gap 10.6 mEq/L 08/09/2020 [facility] 6:09 EDT CENTER LAB BUN 11 7 - 25 08/09/2020 [facility] mg/dl 6:09 EDT CENTER LAB Creatinine 0.71 0.70 - 08/09/2020 [facility] 1.30 mg/dl 6:09 EDT CENTER LAB Estimated GFR >60 >60 08/09/2020 [facility] 6:09 EDT CENTER LAB Comment: EGFR UNITS: mL/min/1.73 m 2 CKD-EPI Equation used to calculate. Glucose 117 (H) 74 - 106 mg/dl 08/09/2020 6:09 EDT [facility] CENTER LAB Calcium 8.3 (L) 8.5 - 10.1 08/09/2020 6:09 EDT [facility] DICAL mg/dl CENTER LAB CALCIUM,CORRECTED - 9.4 8.5 - 10.5 08/09/2020 6:24 EDT [facility] mg/dl CENTER LAB BILIRUBIN - [facility] 1.30 (H) 0.00 - 1.00 08/09/2020 6:24 EDT [facility] mg/dl CENTER LAB AST 62 (H) 15 - 37 U/L 08/09/2020 6:24 EDT [facility] ALT 46 16 - 63 U/L 08/09/2020 6:24 EDT [facility] Alkaline Phosphatase 114 46 - 116 U/L 08/09/2020 6:24 EDT [facility] Total Protein 6.7 6.4 - 8.2 g/dl 08/09/2020 6:24 EDT [facility] Albumin 2.6 (L) 3.4 - 5.0 g/dl 08/09/2020 6:24 EDT [facility] GLOBULIN - [facility] 4.1 g/dl 08/09/2020 6:24 EDT [facility] ALBUMIN/GLOBULIN 0.6 08/09/2020 6:24 EDT [facility] CENTER LAB Specimen Anatomical Collection Method Collection Time Receive d Time (Source) Location / / Volume Laterality 08/09/2020 5:35 08/09/2020 5 :44 EDT EDT Virginia Quintana MD CHEMISTRY & BLOOD GAS ORDERA BLES Performing Organization Address City/State/ZIP Code Phon e Number [facility] [address] [place] [address] (ABNORMAL) COMPLETE BLOOD COUNT AND DIFFERENTIAL (08/09/2020 5:35 EDT) Component Value Ref Test Analysis Performed At [facility] gist Range Method Time Signature WBC 10.3 4.0 - 08/09/2020 [facility] 10.5 10 6:00 EDT MEDICAL 3/uL CENTER LAB RBC 2.98 (L) 4.70 - 08/09/2020 [facility] 6.00 10 6:00 EDT MEDICAL 6/uL CENTER LAB Hemoglobin 10.6 (L) 13.5 - 08/09/2020 [facility] 18.0 6:00 EDT MEDICAL g/dL CENTER LAB HCT 29.6 (L) 42.0 - 08/09/2020 [facility] 52.0 % 6:00 EDT MEDICAL CENTER LAB MCV 99.3 78 - 100 08/09/2020 [facility] fL 6:00 [facility] LAB MCH 35.6 (H) 27 - 31 08/09/2020 [facility] pg 6:00 [facility] LAB MCHC 35.8 32 - 37 08/09/2020 [facility] g/dL 6:00 [facility] LAB RDW-CV - PMC 13.8 <14.7 % 08/09/2020 [facility] 6:00 [facility] PLATELET COUNT - 179 150 - 08/09/2020 [facility]C 450 10 6:00 [facility] 3/uL CENTER LAB MPV 11.6 9.2 - 08/09/2020 [facility] 12.0 fL 6:00 [facility] NEUTROPHILS % 84.2 % 08/09/2020 [facility] (AUTO) - PMC 6:00 [facility] LYMPHOCYTES % 7.2 % 08/09/2020 [facility] (AUTO) - PMC 6:00 [facility] LAB MONOCYTES % 8.0 % 08/09/2020 [facility] (AUTO) - PMC 6:00 [facility] LAB EOSINOPHILS % 0.0 % 08/09/2020 [facility] (AUTO) - PMC 6:00 [facility] LAB BASOPHILS % 0.1 % 08/09/2020 [facility] (AUTO) - PMC 6:00 [facility] LAB Immature 0.5 % 08/09/2020 [facility] Granulocyte % 6:00 [facility] (Auto) CENTER LAB NUCLEATED RBC % 0.0 % 08/09/2020 [facility] (AUTO) - PMC 6:00 [facility] LAB NEUTROPHILS # 8.7 (H) 1.5 - 08/09/2020 [facility] (AUTO) - PMC 6.6 10 6:00 [facility] 3/uL CENTER LAB LYMPHOCYTES # 0.7 (L) 1.0 - 08/09/2020 [facility] (AUTO) - PMC 3.5 10 6:00 [facility] 3/uL CENTER LAB MONOCYTES # 0.8 <1.0 10 08/09/2020 [facility] (AUTO) - PMC 3/uL 6:00 [facility] CENTER LAB EOSINOPHILS # 0.0 <0.7 10 08/09/2020 [facility] (AUTO) - PMC 3/uL 6:00 [facility] LAB Absolute 0.05 <0.06 10 08/09/2020 [facility] Immature 3/uL 6:00 EDT [facility] LAB DIFFERENTIAL Auto 08/09/2020 [facility] METHOD Differential 5:46 [facility] LAB Specimen Anatomical Collection Method Collection Time Receive d Time (Source) Location / / Volume Laterality 08/09/2020 5:35 08/09/2020 5 :44 EDT EDT Virginia Quintana MD PACKAGES & DNA PROBE ORDERAB LES Performing Organization Address City/State/ZIP Code Phon e Number [facility] [address] [place] [address] C DIFFICILE TOXIN PCR, F > 2 YRS - PMC (08/09/2020 3:24 EDT) Specimen Anatomical Collection Method Collection Time Receive d Time (Source) Location / / Volume Laterality 08/09/2020 3:24 08/10/2020 5 :39 EDT EDT Comment: KWASI Jimenez [facility] - 08/10/2020 6 :26 EDT ?? RUN DATE: 08/10/20 ? JOSE RAULM HN: [facility] *LIVE* ? PAGE 1 ? RUN TIME: 625 ?Specimen Inquiry ? PATIENT: DAVID FARFAN ? ACCT: [id number] LOC: ??MS ? U: [id number] ? AGE/SX: 69/M ? ROOM: 138 ?RE08/09/20 ?? REG DR: ??Ester Valerio MD ? : ?1950 ?? BED: ??1 ?DIS: ? STATUS: ADM Astrid ?TLOC: ? SPEC #: [id number] ?ALEX: 332 ? STATUS: ??COMP ? REQ #: [id number] ?RECD: 08/10/20-3860 ? SUBM DR: Jennifer Tyson ? SOURCE: FEC-CDIF ?ENTR: 08/09/20 ? OTHR : Ester Valerio MD ? SPDESC: LIQUID FEC ? Katia Mccallum ? ORDERED: ??CDIF ?Procedure ? Result ?C DIFFICILE PCR,PATIENT >2 YRS ??Xenia thurston ?Toxigenic C. diff result: ?? NEGATIVE for Toxigenic C. diff by Amplified DNA PCR. ?027/NAP1/BI Strain Result ?? Presumptive NEGATIVE identification of 027/NAP1/BI ?strain. ? END OF REPORT ? Virginia Quintana MD MICROBIOLOGY - GENERAL ORDER IRWIN Performing Organization Address City/State/ZIP Code Phon e Number [facility] [address] [place] [address] documented in this encounter Visit Diagnoses Not on filedocumented in this encounter Care Teams Proofreader Relationship Specialty Start Date End Date Katia Stone, PABijalC PCP - General 05/02/17 [address] [facility] [place] [phone] documented as of this encounter
--- OUTSIDE RECORDS SUMMARY | 2022-01-31 15:59 | XMS_ITS | Encounter Summary ---
:1950 Author Organization [facility] Address [address] [place] [address] Care Team Providers Name Role Phone Katia Stone PA-C Primary Care Provider Reason for Visit Reason Onset Date Comments Other 06/21/2020 patient wants to can xin surgery Encounter Details Date Type Department Care Team Description 06/21/2020 Telephone [facility] Cherie Browne MD Other (patient wants Cardiothoracic Surgery - [address] to cancel surgery) [facility], [address] [place], [place] [address] [place] [address] [phone] (Wo rk) Social History Tobacco Use [...] with (Whitney). Pt was called by his Automation And Controls Supervisor on 06/21 x 2 and finally Maru Villalobos the Automation And Controls Supervisor sent the State Police to his house per Maru to do a welfare check as he doesn't follow instructions or return calls per Maru. He didn't go for a covid test and the ride was set up for him by Maru Automation And Controls Supervisor and he cancelled it. He states he [...] have informed Dr. Browne and our schedulers. Telephone Encounter - Melania Dumas - 06/21/2020 1350 EDT Nila ([employer]) from [place] calling to advise that patient wants to cancel surgery on Friday06/26/2020 as he believes he has pneumonia. Per Nila, patient has not been seen by anyone and declined calling ambulance to take him to ED. documented in this encounter Plan of Treatment Not on filedocumented as of this encounter Visit Diagnoses Not on filedocumented in this encounter Care Teams Palliative Care Nurse Relationship Specialty Start Date End Date Katia Stone PA-C PCP - General 05/02/17 [address] [place] [phone] documented as of this encounter
--- OUTSIDE RECORDS SUMMARY | 2022-01-31 15:59 | XMS_ITS | Encounter Summary ---
:1950 Author Organization [facility] Address [address] [place] [address] Care Team Providers Name Role Phone Katia Stone PA-C Primary Care Provider Reason for Visit Reason Onset Date Comments Confirmation 06/19/2020 Encounter Details Date Type Department Care Team Description 06/19/2020 Telephone [facility] Cardiothoracic Cat Sutherland RN Confirmation Surgery - [facility] s [address] [place], [place] [id number] Social History Tobacco Use Types Packs/Day Years [...] the patient to call Maru Villalobos his Methane Gas Collection System Operator as she is arranging his rides for his COVID test and Surgery as well as his instructions for surgery. I also left Maru a message as well. Telephone Encounter - Alma Dhillon - 06/20/2020 0938 EDT FYI---Patient's Student Services Rep calls to say she is not able to reach patient, but will continue to do so. Telephone Encounter - Cat Sutherland RN - 06/19/[address] Surgery Update Pre-Op Nurse TISH Pastrana states patient doesn't have his pre-op instrucitons and was not understanding his medications. They were mailed to his new address by our OSS. I did fax them previously as well to Maru Villalobos RN the patient's Methane Gas Collection System Operator at PCP office, which she did receive. Maru had stated previously that she is arranging a ride for the patient to his COVID test 3-4 days prior to surgery and also arranging ride to [facility] on the day of surgery and will assist in helping patient understand instructions. I have called Maru Villalobos RN and left her a message to call me back on 06/20. I will also call the patient on 06/20 New phone numbers for Maru: [phone] EXT#4, EXT#[phone] Or direct line = [phone] documented in this encounter Plan of Treatment Not on filedocumented as of this encounter Visit Diagnoses Not on filedocumented in this encounter Care Teams Animal Care Giver Relationship Specialty Start Date End Date Katia Stone PA-C PCP - General 05/02/17 [address] [place] [phone] documented as of this encounter
--- OUTSIDE RECORDS SUMMARY | 2022-01-31 15:59 | XMS_ITS | Encounter Summary ---
:1950 Author Organization [facility] Address [address] [place] [address] Care Team Providers Name Role Phone Katia Stone PA-C Primary Care Provider Encounter Details Date Type Department Care Team Description 08/10/2020 Results Only [facility] - [facility] Geetha Valerio, Rheumatology [address] [address] [address] [place] [address] (Wo rk) Social History Tobacco Use [...] encounter Results (ABNORMAL) MAGNESIUM (08/10/2020 5:35 EDT) athologist Signature Magnesium 1.5 (L) 1.8 - 2.4 08/10/2020 [facility] mg/dl 6:13 EDT CENTER LAB Specimen Anatomical Collection Method Collection Time Receive d Time (Source) Location / / Volume Laterality 08/10/2020 5:35 08/10/2020 5 :42 EDT EDT Ester Valerio MD CHEMISTRY & BLOOD GAS ORDERA BLES Performing Organization Address City/State/ZIP Code Phon e Number [facility] [address] [place] [address] (ABNORMAL) BASIC METABOLIC PANEL (BMP) (08/10/2020 5:35 EDT) athologist Signature Sodium 133 (L) 136 - 145 08/10/2020 [facility] mEq/L 6:13 [facility] Potassium 3.4 (L) 3.5 - 5.1 08/10/2020 [facility] mEq/L 6:13 [facility] Chloride 98 96 - 107 08/10/2020 [facility] mEq/L 6:13 [facility] CO2 Total 27.2 21 - 32 08/10/2020 [facility] mEq/L 6:13 [facility] Anion Gap 7.8 mEq/L 08/10/2020 [facility] 6:13 [facility] BUN 6 (L) 7 - 25 08/10/2020 [facility] mg/dl 6:13 [facility] Creatinine 0.54 (L) 0.70 - 08/10/2020 [facility] 1.30 mg/dl 6:13 [facility] Estimated GFR >60 >60 08/10/2020 [facility] 6:13 [facility] Comment: EGFR UNITS: mL/min/1.73 m 2 CKD-EPI Equation used to calculate. Glucose 86 74 - 106 mg/dl 08/10/2020 6:13 [facility] Calcium 7.7 (L) 8.5 - 10.1 mg/dl 08/10/2020 6:13 T [facility] Specimen Anatomical Collection Method Collection Time Receive d Time (Source) Location / / Volume Laterality 08/10/2020 5:35 08/10/2020 5 :42 EDT EDT Ester Valerio MD CHEMISTRY & BLOOD GAS ORDERA BLES Performing Organization Address City/State/ZIP Code Phon e Number [facility] [address] [place] [address] (ABNORMAL) HEPATIC FUNCTION PANEL (ALB,ALK PHOS,ALT,AST,DBIL,TOT BOSSMAN,TOT PROT) (08/10/2020 5:35 EDT) [facility] Method Time Signature BILIRUBIN - PMC 0.90 0.00 - 08/10/2020 [facility] 1.00 mg/dl 6:13 [facility] DIRECT BILIRUBIN 0.50 (H) 0.00 - 08/10/2020 [facility] - PMC 0.30 mg/dl 6:13 [facility] INDIRECT 0.40 0.00 - 08/10/2020 [facility] BILIRUBIN - PMC 0.80 mg/dl 6:13 [facility] AST 50 (H) 15 - 37 08/10/2020 [facility] U/L 6:13 [facility] ALT 37 16 - 63 08/10/2020 [facility] U/L 6:13 [facility] Alkaline 97 46 - 116 08/10/2020 [facility] Phosphatase U/L 6:13 [facility] Total Protein 6.1 (L) 6.4 - 8.2 08/10/2020 [facility] g/dl 6:13 [facility] Albumin 2.3 (L) 3.4 - 5.0 08/10/2020 [facility] g/dl 6:13 [facility] GLOBULIN - PMC 3.8 g/dl 08/10/2020 [facility] 6:13 [facility] ALBUMIN/GLOBULIN 0.6 08/10/2020 [facility] RATIO - PMC 6:13 [facility] Specimen Anatomical Collection Method Collection Time Receive d Time (Source) Location / / Volume Laterality 08/10/2020 5:35 08/10/2020 5 :42 EDT EDT Ester Valerio MD CHEMISTRY & BLOOD GAS ORDERA BLES Performing Organization Address City/State/ZIP Code Phon e Number [facility] [address] [place] [address] (ABNORMAL) COMPLETE BLOOD COUNT AND DIFFERENTIAL (08/10/2020 5:35 EDT) Component Value Ref Test Analysis Performed At [facility] gist Range Method Time Signature WBC 7.0 4.0 - 08/10/2020 [facility] 10.5 10 5:58 [facility] 3/uL CENTER LAB RBC 2.72 (L) 4.70 - 08/10/2020 [facility] 6.00 10 5:58 [facility] 6/uL CENTER LAB Hemoglobin 9.7 (L) 13.5 - 08/10/2020 [facility] 18.0 5:58 [facility] g/dL CENTER LAB HCT 27.9 (L) 42.0 - 08/10/2020 [facility] 52.0 % 5:58 [facility] MCV 102.6 (H) 78 - 100 08/10/2020 [facility] fL 5:58 [facility] MCH 35.7 (H) 27 - 31 08/10/2020 [facility] pg 5:58 [facility] MCHC 34.8 32 - 37 08/10/2020 [facility] g/dL 5:58 [facility] RDW-CV - PMC 14.7 <14.7 % 08/10/2020 [facility] 5:58 [facility] PLATELET COUNT - 180 150 - 08/10/2020 [facility] PMC 450 10 5:58 [facility] 3/uL CENTER LAB MPV 11.0 9.2 - 08/10/2020 [facility] 12.0 fL 5:58 ED [facility] NEUTROPHILS % 65.5 % 08/10/2020 [facility] (AUTO) - PMC 5:58 EDT MEDICAL CENTER LAB LYMPHOCYTES % 17.5 % 08/10/2020 [facility] (AUTO) - PMC 5:58 EDT MEDICAL CENTER LAB MONOCYTES % 13.9 % 08/10/2020 [facility] (AUTO) - PMC 5:58 EDT MEDICAL CENTER LAB EOSINOPHILS % 2.1 % 08/10/2020 [facility] (AUTO) - PMC 5:58 EDT MEDICAL CENTER LAB BASOPHILS % 0.4 % 08/10/2020 [facility] (AUTO) - PMC 5:58 EDT MEDICAL CENTER LAB Immature 0.6 % 08/10/2020 [facility] Granulocyte % 5:58 [facility] (Auto) CENTER LAB NUCLEATED RBC % 0.0 % 08/10/2020 [facility] (AUTO) - PMC 5:58 [facility] NEUTROPHILS # 4.6 1.5 - 08/10/2020 [facility] (AUTO) - PMC 6.6 10 5:58 [facility] 3/uL CENTER LAB LYMPHOCYTES # 1.2 1.0 - 08/10/2020 [facility] (AUTO) - PMC 3.5 10 5:58 ED[facility] 3/uL CENTER LAB MONOCYTES # 1.0 <1.0 10 08/10/2020 [facility] (AUTO) - PMC 3/uL 5:58 ED [facility]ENTER LAB EOSINOPHILS # 0.2 <0.7 10 08/10/2020 [facility] (AUTO) - PMC 3/uL 5:58 EDT MEDICAL CENTER LAB Absolute 0.04 <0.06 10 08/10/2020 [facility] Immature 3/uL 5:58 [facility] Granulocyte CENTER LAB DIFFERENTIAL Auto 08/10/2020 [facility] METHOD Differential 5:44 [facility] Specimen Anatomical Collection Method Collection Time Receive d Time (Source) Location / / Volume Laterality 08/10/2020 5:35 08/10/2020 5 :43 EDT EDT Ester Valerio MD PACKAGES & DNA PROBE ORDERAB LES Performing Organization Address City/State/ZIP Code Phon e Number [facility] [address] [place] [address] documented in this encounter Visit Diagnoses Not on filedocumented in this encounter Care Teams Fashion Designer Relationship Specialty Start Date End Date Katia Stone PA-C PCP - General 05/02/17 [address] [place], [place] [phone] documented as of this encounter
--- OUTSIDE RECORDS SUMMARY | 2022-01-31 15:59 | XMS_ITS | Encounter Summary ---
:[address] [facility] Address [address] [place] [address] Care Team Providers Name Role Phone Katia Stone PA-C Primary Care Provider Reason for Visit Reason Onset Date Comments Appointment Related 06/06/2020 Encounter Details Date Type Department Care Team Description 06/06/2020 Telephone [facility] Cherie Browne MD Appointment Related Cardiothoracic Surgery - [address] [place] [address], [address] [place], [place] [address] [place] [address] [phone] (Wo rk) Social History Tobacco Use [...] Telephone Encounter - Alma Dhillon - 06/06/2020 4850 EDT At her request, I have telephoned Nurse Automobile Drivers, Nila, at [facility] to advise of this patient's surgery date. It is Monday 06/26 beginning @ 1:00 pm. This will involve Lorraine Maharja. I was unable to reach Nila, but left a message requesting her to phone our office, if she hadany questions. documented in this encounter Plan of Treatment Not on filedocumented as of this encounter Visit Diagnoses Not on filedocumented in this encounter Care Teams Customer Pricing Manager Relationship Specialty Start Date End Date Katia Stone PA-C PCP - General 05/02/17 [address] [place] [phone] documented as of this encounter
--- OUTSIDE RECORDS SUMMARY | 2022-01-31 15:59 | XMS_ITS | Encounter Summary ---
:[address] [facility] Address [address] [place] [address] Care Team Providers Name Role Phone Katia Stone PA-C Primary Care Provider Encounter Details Date Type Department Care Team Description 09/06/2020 Results Only [facility] Rowan Abad NP [phone] [place] [phone] (Wo rk) Social History Tobacco Use [...] encounter Results PLATELET COUNT (09/06/2020 5:05 EDT) athologist Signature PLATELET COUNT 236 150 - 450 09/06/2020 [facility] 10 3/uL 5:55 EDT CENTER LAB Specimen Anatomical Collection Method Collection Time Receive d Time (Source) Location / / Volume Laterality 09/06/2020 5:05 09/06/2020 5 :32 EDT EDT Narrative [facility] - 09/06/2020 5 :58 EDT Comment ENOXAPARIN MONITORING Rowan Abad LEAD QA ANALYST HEMATOLOGY & PF4 ORDERABLES Performing Organization Address City/[facility]/ZIP Code Phon e Number [facility] [address] [place] [address] (ABNORMAL) CREATININE WITH GFR - PMC (09/06/2020 5:05 EDT) athologist Signature Creatinine 0.60 (L) 0.70 - 09/06/2020 [place] 1.30 mg/dl 5:52 [facility] Estimated GFR >60 >60 09/06/2020 [place] 5:52 [facility] Comment: EGFR UNITS: mL/min/1.73 m 2 CKD-EPI Equation used to calculate. Specimen Anatomical Collection Method Collection Time Receive d Time (Source) Location / / Volume Laterality 09/06/2020 5:05 09/06/2020 5 :32 EDT EDT Rowan Abad NP CHEMISTRY & BLOOD GAS ORDERA BLES Performing Organization Address City/[facility]/ZIP Code Phon e Number [facility] [address] [place] [id number] documented in this encounter Visit Diagnoses Not on filedocumented in this encounter Care Teams Metalsmith Relationship Specialty Start Date End Date Katia Stone PA-C PCP - General 05/02/[address] [place] [phone] documented as of this encounter
--- OUTSIDE RECORDS SUMMARY | 2022-01-31 15:59 | XMS_ITS | Encounter Summary ---
:1950 Author Organization [facility] Address [address] [place] [address] Care Team Providers Name Role Phone Katia Stone PA-C Primary Care Provider Encounter Details Date Type Department Care Team Description 08/20/2020 Results Only [facility] Ruiz [facility] [address] [place], [place] [phone] (Wo rk) Social History Tobacco Use [...] encounter Results (ABNORMAL) MAGNESIUM (08/20/2020 6:50 EDT) athologist Signature Magnesium 1.6 (L) 1.8 - 2.4 08/20/2020 [facility] mg/dl 13:10 EDT [facility]ENTER LAB Specimen Anatomical Collection Method Collection Time Receive d Time (Source) Location / / Volume Laterality 08/20/2020 6:50 08/20/2020 6 :59 EDT EDT Junior Ray MD CHEMISTRY & BLOOD GAS ORDERA BLES Performing Organization Address City/State/ZIP Code Phon e Number [facility] [address] [place] [address] (ABNORMAL) BASIC METABOLIC PANEL (BMP) (08/20/2020 6:50 EDT) athologist Signature Sodium 134 (L) 136 - 145 08/20/2020 [facility] mEq/L 7:27 [facility] Potassium 3.6 3.5 - 5.1 08/20/2020 [facility] mEq/L 7:27 [facility] Chloride 100 96 - 107 08/20/2020 [facility] mEq/L 7:27 [facility] CO2 Total 28.7 21 - 32 08/20/2020 [facility] mEq/L 7:27 [facility] Anion Gap 5.3 mEq/L 08/20/2020 [facility] 7:27 [facility] BUN 7 7 - 25 08/20/2020 [facility] mg/dl 7:27 [facility] Creatinine 0.48 (L) 0.70 - 08/20/2020 [facility] 1.30 mg/dl 7:27 [facility] Estimated GFR >60 >60 08/20/2020 [facility] 7:27 [facility] Comment: EGFR UNITS: mL/min/1.73 m 2 CKD-EPI Equation used to calculate. Glucose 91 74 - 106 mg/dl 08/20/2020 7:27 EDT [facility] Calcium 8.3 (L) 8.5 - 10.1 mg/dl 08/20/2020 7:27 EDT [facility] Specimen Anatomical Collection Method Collection Time Receive d Time (Source) Location / / Volume Laterality 08/20/2020 6:50 08/20/2020 6 :59 EDT EDT Junior Ray MD CHEMISTRY & BLOOD GAS ORDERA BLES Performing Organization Address City/State/ZIP Code Phon e Number [facility] [address] [place] [address] (ABNORMAL) COMPLETE BLOOD COUNT (08/20/2020 6:50 EDT) [facility] gist Method Time Signature WBC 5.8 4.0 - 10.5 08/20/2020 [facility] 10 3/uL 7:07 [facility] RBC 2.96 (L) 4.70 - 08/20/2020 [facility] 6.00 10 7:07 [facility] 6/ CENTER LAB Hemoglobin 10.5 (L) 13.5 - 08/20/2020 [facility] 18.0 g/dL 7:07 [facility] HCT 29.8 (L) 42.0 - 08/20/2020 [facility] 52.0 % 7:07 [facility] MCV 100.7 (H) 78 - 100 08/20/2020 [facility] fL 7:07 [facility] MCH 35.5 (H) 27 - 31 pg 08/20/2020 [facility] 7:07 [facility] MCHC 35.2 32 - 37 08/20/2020 [facility] g/dL 7:07 [facility] RDW-CV - PMC 14.7 <14.7 % 08/20/2020 [facility] 7:07 [facility] PLATELET COUNT 253 150 - 450 08/20/2020 [facility] - PMC 10 3/uL 7:07 [facility] MPV 10.1 9.2 - 12.0 08/20/2020 [facility] 7:07 EDT [facility]ENTER LAB Specimen Anatomical Collection Method Collection Time Receive d Time (Source) Location / / Volume Laterality 08/20/2020 6:50 08/20/2020 6 :59 EDT EDT Junior Ray MD HEMATOLOGY & PF4 ORDERABLES Performing Organization Address City/State/ZIP Code Phon e Number [facility] [address] [place] [address] documented in this encounter Visit Diagnoses Not on filedocumented in this encounter Care Teams Installer Molding And Trim Relationship Specialty Start Date End Date Katia Stone, BELLAC PCP - General 05/02/17 [address] [place] [phone] documented as of this encounter
--- OUTSIDE RECORDS SUMMARY | 2022-01-31 15:59 | XMS_ITS | Encounter Summary ---
:1950 Author Organization [facility] Address [address] [place] [address] Care Team Providers Name Role Phone Katia Stone PA-C Primary Care Provider Encounter Details Date Type Department Care Team Description 08/11/2020 Results Only [facility] - [facility] Geetha Valerio, Rheumatology [address] [address] [address] [place] [address] (Wo rk) Social History Tobacco Use [...] encounter Results (ABNORMAL) MAGNESIUM (08/11/2020 5:25 EDT) athologist Signature Magnesium 1.5 (L) 1.8 - 2.4 08/11/2020 [facility] mg/dl 6:07 T CENTER LAB Specimen Anatomical Collection Method Collection Time Receive d Time (Source) Location / / Volume Laterality 08/11/2020 5:25 08/11/2020 5 :39 EDT EDT Ester Valerio MD CHEMISTRY & BLOOD GAS ORDERA BLES Performing Organization Address City/State/ZIP Code Phon e Number [facility] [address] [place] [address] (ABNORMAL) BASIC METABOLIC PANEL (BMP) (08/11/2020 5:25 EDT) athologist Signature Sodium 132 (L) 136 - 145 08/11/2020 [facility] mEq/L 6:07 [facility] Potassium 3.5 3.5 - 5.1 08/11/2020 [facility] mEq/L 6:07 [facility] Chloride 99 96 - 107 08/11/2020 [facility] mEq/L 6:07 [facility] CO2 Total 28.6 21 - 32 08/11/2020 [facility] mEq/L 6:07 [facility] Anion Gap 4.4 mEq/L 08/11/2020 [facility] 6:07 [facility] BUN 5 (L) 7 - 25 08/11/2020 [facility] mg/dl 6:07 [facility] Creatinine 0.51 (L) 0.70 - 08/11/2020 [facility] 1.30 mg/dl 6:07 [facility] Estimated GFR >60 >60 08/11/2020 [facility] 6:07 [facility] Comment: EGFR UNITS: mL/min/1.73 m 2 CKD-EPI Equation used to calculate. Glucose 112 (H) 74 - 106 mg/dl 08/11/2020 6:07 T [facility] Calcium 7.7 (L) 8.5 - 10.1 mg/dl 08/11/2020 6:07 T [facility] Specimen Anatomical Collection Method Collection Time Receive d Time (Source) Location / / Volume Laterality 08/11/2020 5:25 08/11/2020 5 :39 EDT EDT Ester Valerio MD CHEMISTRY & BLOOD GAS ORDERA BLES Performing Organization Address City/State/ZIP Code Phon e Number [facility] [address] [place] [address] (ABNORMAL) HEPATIC FUNCTION PANEL (ALB,ALK PHOS,ALT,AST,DBIL,TOT BOSSMAN,TOT PROT) (08/11/2020 5:25 EDT) Analysis Performed At Patho logist Time Signature BILIRUBIN - PMC 0.70 0.00 - 08/11/2020 [facility] 1.00 mg/dl 6:07 [facility] DIRECT BILIRUBIN 0.30 0.00 - 08/11/2020 [facility] - PMC 0.30 mg/dl 6:07 [facility] INDIRECT 0.40 0.00 - 08/11/2020 [facility] BILIRUBIN - PMC 0.80 mg/dl 6:07 [facility] AST 39 (H) 15 - 37 08/11/2020 [facility] U/L 6:07 [facility] ALT 30 16 - 63 08/11/2020 [facility] U/L 6:07 [facility] Alkaline 95 46 - 116 08/11/2020 [facility] Phosphatase U/L 6:07 [facility] Total Protein 6.1 (L) 6.4 - 8.2 08/11/2020 [facility] g/dl 6:07 [facility] Albumin 2.2 (L) 3.4 - 5.0 08/11/2020 [facility] g/dl 6:07 EDT [facility] GLOBULIN - PMC 3.9 g/dl 08/11/2020 [facility] 6:07 [facility] ALBUMIN/GLOBULIN 0.5 08/11/2020 [facility] RATIO - PMC 6:07 [facility] Specimen Anatomical Collection Method Collection Time Receive d Time (Source) Location / / Volume Laterality 08/11/2020 5:25 08/11/2020 5 :39 EDT EDT Ester Valerio MD CHEMISTRY & BLOOD GAS ORDERA BLES Performing Organization Address City/State/ZIP Code Phon e Number [facility] [address] [place] [address] documented in this encounter Visit Diagnoses Not on filedocumented in this encounter Care Teams Brazer Resistance Relationship Specialty Start Date End Date Katia Stone PA-C PCP - General 05/02/17 [address] [place] [phone] documented as of this encounter
--- OUTSIDE RECORDS SUMMARY | 2022-01-31 15:59 | XMS_ITS | Encounter Summary ---
:1950 Author Organization [facility] Address [address] [place] [address] Care Team Providers Name Role Phone Katia Stone PA-C Primary Care Provider Encounter Details Date Type Department Care Team Description 09/26/2020 Results Only [facility] Rowan Abad NP [phone] [place] [phone] (Wo rk) Social History Tobacco Use [...] encounter Results (ABNORMAL) MAGNESIUM (09/26/2020 14:33 EDT) athologist Signature Magnesium 1.7 (L) 1.8 - 2.4 09/26/2020 [facility] mg/dl 15:12 EDT [facility] Specimen Anatomical Collection Method Collection Time Receive d Time (Source) Location / / Volume Laterality 09/26/2020 14:33 09/26/2020 EDT 14:54 EDT Rowan Abad NP CHEMISTRY & BLOOD GAS ORDERA BLES Performing Organization Address City/State/ZIP Code Phon e Number [facility] [address] [place] [address] (ABNORMAL) BASIC METABOLIC PANEL (BMP) (09/26/2020 14:33 EDT) athologist Signature Sodium 131 (L) 136 - 145 09/26/2020 [facility] mEq/L 15:12 EDT [facility]ENTER LAB Potassium 4.2 3.5 - 5.1 09/26/2020 [facility] mEq/L 15:12 EDT [facility]ENTER [facility] Chloride 96 96 - 107 09/26/2020 [facility] mEq/L 15:12 EDT [facility] CO2 Total 30.9 21 - 32 09/26/2020 [facility] mEq/L 15:12 EDT [facility] Anion Gap 3.1 mEq/L 09/26/2020 [facility] 15:12 EDT [facility]ENTER [facility] BUN 10 7 - 25 09/26/2020 [facility] mg/dl 15:12 EDT [facility] Creatinine 0.82 0.70 - 09/26/2020 [facility] 1.30 mg/dl 15:12 EDT CENTER LAB Estimated GFR >60 >60 09/26/2020 [facility] 15:12 [facility] Comment: EGFR UNITS: mL/min/1.73 m 2 CKD-EPI Equation used to calculate. Glucose 111 (H) 74 - 106 mg/dl 09/26/2020 15:12 EDT [facility] Calcium 8.6 8.5 - 10.1 mg/dl 09/26/2020 15:12 EDT [facility] Specimen Anatomical Collection Method Collection Time Receive d Time (Source) Location / / Volume Laterality 09/26/2020 14:33 09/26/2020 EDT 14:54 EDT Rowan Abad NP CHEMISTRY & BLOOD GAS ORDERA BLES Performing Organization Address City/State/ZIP Code Phon e Number [facility] [address] [place] [address] (ABNORMAL) COMPLETE BLOOD COUNT AND DIFFERENTIAL (09/26/2020 14:33 EDT) Component Value Ref Range Test Analysis Performed Pathologis t Method Time At Signature WBC 7.3 4.0 - 10.5 10 09/26/2020 [facility] 3/uL 15:08 [facility] RBC 3.30 (L) 4.70 - 6.00 09/26/2020 [facility] 10 6/uL 15:08 [facility] Hemoglobin 11.2 (L) 13.5 - 18.0 09/26/2020 [facility] g/dL 15:08 [facility] HCT 32.0 (L) 42.0 - 52.0 % 09/26/2020 [facility] 15:08 [facility] MCV 97.0 78 - 100 fL 09/26/2020 [facility] 15:08 [facility] MCH 33.9 (H) 27 - 31 pg 09/26/2020 [facility] 15:08 [facility] MCHC 35.0 32 - 37 g/dL 09/26/2020 [facility] 15:08 [facility] RDW-CV - PMC 11.7 <14.7 % 09/26/2020 [facility] 15:08 [facility] PLATELET COUNT 291 150 - 450 10 09/26/2020 [facility] - PMC 3/uL 15:08 [facility] MPV 11.0 9.2 - 12.0 fL 09/26/2020 [facility] 15:08 [facility] NEUTROPHILS % 59.3 % 09/26/2020 [facility] (AUTO) - PMC 15:08 [facility] LYMPHOCYTES % 23.9 % 09/26/2020 [facility] (AUTO) - PMC 15:08 [facility] MONOCYTES % 12.3 % 09/26/2020 [facility] (AUTO) - PMC 15:08 [facility] EOSINOPHILS % 2.9 NOT 09/26/2020 [facility] (AUTO) - PMC ESTABLISHED % 15:08 [facility] BASOPHILS % 1.0 % 09/26/2020 [facility] (AUTO) - PMC 15:08 [facility] Immature 0.6 % 09/26/2020 [facility] Granulocyte % 15:08 [facility] (Auto) CENTER LAB NUCLEATED RBC % 0.0 % 09/26/2020 [facility] (AUTO) - PMC 15:08 [facility] NEUTROPHILS # 4.3 1.5 - 6.6 10 09/26/2020 [facility] (AUTO) - PMC 3/uL 15:08 [facility] LYMPHOCYTES # 1.7 1.0 - 3.5 10 09/26/2020 [facility] (AUTO) - PMC 3/uL 15:08 [facility] MONOCYTES # 0.9 <1.0 10 3/uL 09/26/2020 [facility] (AUTO) - PMC 15:08 [facility] EOSINOPHILS # 0.2 <0.7 10 3/uL 09/26/2020 [facility] (AUTO) - PMC 15:08 [facility] BASOPHILS # 0.1 <0.1 10 3/uL 09/26/2020 [facility] (AUTO) - PMC 15:08 [facility] Absolute 0.04 <0.06 10 3/uL 09/26/2020 [facility] Immature 15:08 [facility] CENTER LAB DIFFERENTIAL Auto 09/26/2020 [facility] METHOD Differential 14:56 [facility] Specimen Anatomical Collection Method Collection Time Receive d Time (Source) Location / / Volume Laterality 09/26/2020 14:33 09/26/2020 EDT 14:54 EDT Rowan Abad [employer] ORDERAB LES Performing Organization Address City/State/ZIP Code Phon e Number [facility] [address] [place] [address] documented in this encounter Visit Diagnoses Not on filedocumented in this encounter Care Teams Sports Book Writer Relationship Specialty Start Date End Date Katia Stone PA-C PCP - General 05/02/17 [address] [place] [phone] documented as of this encounter
--- OUTSIDE RECORDS SUMMARY | 2022-01-31 15:59 | XMS_ITS | Encounter Summary ---
:1950 Author Organization [facility] Address [address] [place] [address] Care Team Providers Name Role Phone Katia Stone PA-C Primary Care Provider Reason for Visit Reason Onset Date Comments Appointment Related 06/19/2020 Encounter Details Date Type Department Care Team Description 06/19/2020 Telephone [facility] Cherie Browne MD Appointment Related Cardiothoracic Surgery - [address] [place] [address], [address] [place], [place] [address] [place] [address] [phone] (Wo rk) Social History Tobacco Use [...] Telephone Encounter - Alma Dhillon - 06/19/2020 0805 EDT TC to Nila, Graphics Edit Technician, at patient's PCP Office. She is aware that patient has a PAT appointment today between 4:00 and 4:45 pm with an Anesthesia Nurse. Patient is scheduled for surgery on 06/26 at 12:10 pm and should arrive in the Registration Department at 10:10 am. Graphics Edit Technician states that patienthas a COVID test scheduled for 06/22 at [facility]. New telephone number noted for Graphics Edit Technician is [phone]. documented in this encounter Plan of Treatment Not on filedocumented as of this encounter Visit Diagnoses Not on filedocumented in this encounter Care Teams Executive Meeting Manager Relationship Specialty Start Date End Date Katia Stone, PABijalC PCP - General 05/02/17 [address] [place] [phone] documented as of this encounter
--- OUTSIDE RECORDS SUMMARY | 2022-01-31 15:59 | XMS_ITS | Encounter Summary ---
:[address] [facility] Address [address] [place] [address] Care Team Providers Name Role Phone Katia Stone PA-C Primary Care Provider Encounter Details Date Type Department Care Team Description 08/08/2020 Results Only [facility] - Renetta Isaac, [facility] Lab MD [address] [place] [address] [place], [place] [phone] (Wo rk) Social History Tobacco Use [...] BLOOD COUNT AND DIFFERENTIAL (08/08/2020 20:42 EDT) Component Value Ref Test Analysis Performed At [facility] gist Range Method Time Signature WBC 7.6 4.0 - 08/08/2020 [facility] 10.5 10 20:51 ED MEDICAL 3/uL CENTER LAB RBC 3.15 (L) 4.70 - 08/08/2020 [facility] Hemoglobin 11.3 (L) 13.5 - 08/08/2020 [facility] 18.0 20:51 EDT MEDICAL g/dL CENTER LAB HCT 31.4 (L) 42.0 - 08/08/2020 [facility] 52.0 % 20:51 [facility] CENTER LAB MCV 99.7 78 - 100 08/08/2020 [facility] fL 20:51 [facility] LAB MCH 35.9 (H) 27 - 31 08/08/2020 [facility] pg 20:51 [facility] CENTER LAB MCHC 36.0 32 - 37 08/08/2020 [facility] g/dL 20:51 [facility] LAB RDW-CV - PMC 13.8 <14.7 % 08/08/2020 [facility] 20:51 [facility] CENTER LAB PLATELET COUNT - 199 150 - 08/08/2020 [facility] PMC 450 10 20:51 [facility] 3/uL CENTER LAB MPV 11.2 9.2 - 08/08/2020 [facility] 12.0 fL 20:51 [facility] LAB NEUTROPHILS % 81.3 % 08/08/2020 [facility] (AUTO) - PMC 20:51 [facility] LAB LYMPHOCYTES % 8.6 % 08/08/2020 [facility] (AUTO) - PMC 20:51 [facility] CENTER LAB MONOCYTES % 9.5 % 08/08/2020 [facility] (AUTO) - PMC 20:51 [facility] LAB EOSINOPHILS % 0.0 % 08/08/2020 [facility] (AUTO) - PMC 20:51 [facility] LAB BASOPHILS % 0.1 % 08/08/2020 [facility] (AUTO) - PMC 20:51 [facility] LAB Immature 0.5 % 08/08/2020 [facility] Granulocyte % 20:51 [facility] (Auto) CENTER LAB NUCLEATED RBC % 0.0 % 08/08/2020 [facility] (AUTO) - PMC 20:51 [facility] LAB NEUTROPHILS # 6.1 1.5 - 08/08/2020 [facility] (AUTO) - PMC 6.6 10 20:51 [facility] 3/uL CENTER LAB LYMPHOCYTES # 0.7 (L) 1.0 - 08/08/2020 [facility] (AUTO) - PMC 3.5 10 20:51 [facility] 3/uL CENTER LAB MONOCYTES # 0.7 <1.0 10 08/08/2020 [facility] (AUTO) - PMC 3/uL 20:51 [facility] LAB EOSINOPHILS # 0.0 <0.7 10 08/08/2020 [facility] (AUTO) - PMC 3/uL 20:51 [facility] LAB Absolute 0.04 <0.06 10 08/08/2020 [facility] Immature 3/uL 20:51 [facility] Granulocyte CENTER LAB DIFFERENTIAL Auto 08/08/2020 [facility] METHOD Differential 20:48 [facility] LAB Specimen Anatomical Collection Method Collection Time Receive d Time (Source) Location / / Volume Laterality 08/08/2020 20:42 08/08/2020 EDT 20:46 EDT Tony Christy MD PACKAGES & DNA PROBE ORDERAB LES Performing Organization Address City/State/ZIP Code Phon e Number [facility] [address] [place] [address] CORONAVIRUS COVID-19 PCR ([facility]) (08/08/2020 17:07 EDT) Specimen Anatomical Collection Method Collection Time Receive d Time (Source) Location / / Volume Laterality 08/08/2020 17:07 08/08/2020 EDT 17:11 EDT Comment: SWAB Narrative [facility] - 08/08/2020 1 8:36 EDT ?? RUN DATE: 08/08/20 ? [facility] HN: [facility] *LIVE* ? PAGE 1 ? RUN TIME: 1837 ?Specimen Inquiry ? PATIENT: DAVID FARFAN ? ACCT: [id number] LOC: ??ED ? U: [id number] ? AGE/SX: 69/M ? ROOM: ?RE08/08/20 ?? REG DR: ??Tony Christy MD ?: ?1950 ?? BED: ? DIS: ? STATUS: REG ER ? TLOC: ? SPEC #: [id number] ?ALEX: ? STATUS: ??COMP ? REQ #: [id number] ?RECD: 08/08/20 ? SUBM DR: Tony Christy MD ? SOURCE: NASAL SWAB ?ENTR: 0 08/08/20 ? OTHR DR: Katia Mccallum ? SPDESC: SWAB ? ORDERED: [...] This test ?has been authorized by the [facility] under a EUA for use by ?authorized [...] terminated or revoked sooner. ?Testing performed on [email or web address] instrument ? END OF REPORT ? Tony Christy MD MICROBIOLOGY - GENERAL ORDER IRWIN Performing Organization Address City/State/ZIP Code Phon e Number [facility] [address] [place] [address] (ABNORMAL) BNP - PMC (08/08/2020 16:47 EDT) Analysis Performed At Patho logist Time Signature B-TYPE 398 (H) <100 pg/mL 08/08/2020 [facility] NATRIURETIC 17:53 EDT MEDICAL PEPTIDE - [facility] CENTER LAB Specimen Anatomical Collection Method Collection Time Receive d Time (Source) Location / / Volume Laterality 08/08/2020 16:47 08/08/2020 EDT 16:52 EDT Tony Christy MD CHEMISTRY & BLOOD GAS ORDERA BLES Performing Organization Address City/[facility]/ZIP Code Phon e [facility] [address] [place] [address] TROPONIN I (08/08/2020 16:47 EDT) athologist Signature Troponin I <0.050 0 - 0.056 08/08/2020 [facility] (ng/mL) ng/ml 17:36 EDT CENTER LAB Comment: Interpretation: The cutoff for an abnormal troponin resu lt is set at the 99th percentile of a normal, heal thy population. Elevated troponin values must always be interpreted in the context of the clinic al presentation. Clinical correlation is re quired to determine if serial troponin measurement s are appropriate. The results of this assay can be falsely lowered due to the consumption of Biotin. Specimen Anatomical Collection Method Collection Time Receive d Time (Source) Location / / Volume Laterality 08/08/2020 16:47 08/08/2020 EDT 16:52 EDT Tony Christy MD CHEMISTRY & BLOOD GAS ORDERA BLES Performing Organization Address City/[facility]/ZIP Code Phon e Number [facility] [address] [place] [address] (ABNORMAL) COMPREHENSIVE METABOLIC PANEL (CMP) (08/08/2020 16:47 EDT) athologist Signature Sodium 125 (L) 136 - 145 08/08/2020 [facility] mEq/L 17:29 [facility] LAB Potassium 2.9 (L) 3.5 - 5.1 08/08/2020 [facility] mEq/L 17:29 EDT [facility] CENTER LAB Chloride 85 (L) 96 - 107 08/08/2020 [facility] mEq/L 17:29 [facility] CO2 Total 26.2 21 - 32 08/08/2020 [facility] mEq/L 17:29 [facility] Anion Gap 13.8 mEq/L 08/08/2020 [facility] 17:29 [facility] BUN 8 7 - 25 08/08/2020 [facility] mg/dl 17:29 [facility] Creatinine 0.67 (L) 0.70 - 08/08/2020 [facility] 1.30 mg/dl 17:29 [facility] Estimated GFR >60 >60 08/08/2020 [facility] 17:29 [facility] Comment: EGFR UNITS: mL/min/1.73 m 2 CKD-EPI Equation used to calculate. Glucose 101 74 - 106 mg/dl 08/08/2020 17:29 [facility] LAB Calcium 8.5 8.5 - 10.1 08/08/2020 17:29 [facility] EDICAL mg/dl [facility] CALCIUM,CORRECTED - 9.3 8.5 - 10.5 08/08/2020 17:29 [facility] PMC mg/dl [facility] BILIRUBIN - PMC 1.60 (H) 0.00 - 1.00 08/08/2020 17:29 [facility] mg/dl [facility] AST 90 (H) 15 - 37 U/L 08/08/2020 17:29 [facility] LAB ALT 62 16 - 63 U/L 08/08/2020 17:29 [facility] LAB Alkaline Phosphatase 133 (H) 46 - 116 U/L 08/08/2020 17:29 [facility] LAB Total Protein 7.6 6.4 - 8.2 g/dl 08/08/2020 17:29 [facility] LAB Albumin 3.0 (L) 3.4 - 5.0 g/dl 08/08/2020 17:29 [facility] LAB GLOBULIN - PMC 4.6 g/dl 08/08/2020 17:29 [facility] LAB ALBUMIN/GLOBULIN 0.6 08/08/2020 17:29 [facility] - PMC CENTER LAB Specimen Anatomical Collection Method Collection Time Receive d Time (Source) Location / / Volume Laterality 08/08/2020 16:47 08/08/2020 EDT 16:52 EDT Tony Christy MD CHEMISTRY & BLOOD GAS ORDERA BLES Performing Organization Address City/State/ZIP Code Phon e Number [facility] [address] [place] [address] (ABNORMAL) COMPLETE BLOOD COUNT AND DIFFERENTIAL (08/08/2020 16:47 EDT) Component Value Ref Test Analysis Performed At [facility] gist Range Method Time Signature WBC 7.3 4.0 - 08/08/2020 [facility] 10.5 10 17:14 [facility] 3[facility] LAB RBC 3.32 (L) 4.70 - 08/08/2020 [facility] 6.00 10 17:[address] [facility] Hemoglobin 11.8 (L) 13.5 - 08/08/2020 [facility] 18.0 17:14 [facility] g/dL [facility] HCT 32.9 (L) 42.0 - 08/08/2020 [facility] 52.0 % 17:14 [facility] LAB MCV 99.1 78 - 100 08/08/2020 [facility] fL 17:14 [facility] MCH 35.5 (H) 27 - 31 08/08/2020 [facility] pg 17:14 [facility] LAB MCHC 35.9 32 - 37 08/08/2020 [facility] g/dL 17:14 [facility] LAB RDW-CV - PMC 13.7 <14.7 % 08/08/2020 [facility] 17:14 [facility] LAB PLATELET COUNT - 209 150 - 08/08/2020 [facility] PMC 450 10 17:[address] LAB MPV 11.4 9.2 - 08/08/2020 [facility] 12.0 fL 17:14 [facility] LAB NEUTROPHILS % 81.9 % 08/08/2020 [facility] (AUTO) - PMC 17:14 [facility] LYMPHOCYTES % 9.1 % 08/08/2020 [facility] (AUTO) - PMC 17:14 [facility] MONOCYTES % 8.3 % 08/08/2020 [facility] (AUTO) - PMC 17:14 [facility] LAB EOSINOPHILS % 0.0 % 08/08/2020 [facility] (AUTO) - PMC 17:14 [facility] LAB BASOPHILS % 0.1 % 08/08/2020 [facility] (AUTO) - PMC 17:14 [facility] LAB Immature 0.6 % 08/08/2020 [facility] Granulocyte % 17:14 [facility] (Auto) CENTER LAB NUCLEATED RBC % 0.0 % 08/08/2020 [facility] (AUTO) - PMC 17:14 [facility] LAB NEUTROPHILS # 5.9 1.5 - 08/08/2020 [facility] (AUTO) - PMC 6.6 10 17:14 [facility] 3/uL CENTER LAB LYMPHOCYTES # 0.7 (L) 1.0 - 08/08/2020 [facility] (AUTO) - PMC 3.5 10 17:14 [facility] 3/ CENTER LAB MONOCYTES # 0.6 <1.0 10 08/08/2020 [facility] (AUTO) - PMC 3/uL 17:14 [facility] LAB EOSINOPHILS # 0.0 <0.7 10 08/08/2020 [facility] (AUTO) - PMC 3/uL 17:14 [facility] LAB Absolute 0.04 <0.06 10 08/08/2020 [facility] Immature 3/uL 17:14 [facility] LAB DIFFERENTIAL Auto 08/08/2020 [place] METHOD Differential 16:54 [facility] LAB Specimen Anatomical Collection Method Collection Time Receive d Time (Source) Location / / Volume Laterality 08/08/2020 16:47 08/08/2020 EDT 16:52 EDT Tony Christy MD PACKAGES & DNA PROBE ORDERAB LES Performing Organization Address City/State/ZIP Code Phon e Number [facility] [address] [place] [address] documented in this encounter Visit Diagnoses Not on filedocumented in this encounter Care Teams Map Plotter Relationship Specialty Start Date End Date Katia Stone, PABijalC PCP - General 05/02/17 [address] [place] [phone] documented as of this encounter
--- OUTSIDE RECORDS SUMMARY | 2022-01-31 15:59 | XMS_ITS | Encounter Summary ---
:1950 Author Organization [facility] Address [address] [place] [address] Care Team Providers Name Role Phone Katia Stone PA-C Primary Care Provider Encounter Details Date Type Department Care Team Description 08/08/2020 Results Only Imaging [facility] - Justin Christy [facility] MD Hallie Radiology Results [address] [place] [phone] (Wo rk) Social History Tobacco Use Types [...] XR CHEST 2 VIEWS (08/08/2020 15:36 EDT) Anatomical Region Laterality Modality Computed Radiography Specimen (Source) Anatomical Collection Method Collection Time Re ceived Time Location / / Volume Laterality 08/08/2020 15:36 EDT Narrative 08/08/2020 15:36 EDT [facility] ?[address] ?[place] [address] ?Diagnostic Imaging Report ? Signed ? Patient Name:ADOLPH,DAVID Martinez ? Date of :1950 ?MR Number:[id number] ? Age:69 ?Sex:M ? Category: CR ?Date [...] report , please contact the [facility] at [phone] ? Dictated by: Temo Son MD ?D/ 15 ?? 36 ?? Transcribed by: SSOMROV ?D/T: ? E-Signed by: Temo Son MD ?D/ 19 ?? 38 ?? Procedure Note Temo Son MD - 08/08/2020 [facility] [address] [address] Diagnostic Imaging Report Signed Patient Name:DAVID FARFAN Jan Haro r:[id number] Date of :1950 MR Number:[id number] Age:69 Sex:M Category: CR Date of Exam:08/08/20 [...] please contact the [facility] at [phone] Dictated by: Temo Son MD D/T: 08/08 15 36 Transcribed by: [facility] D/T: E-Signed by: Temo Son MD D/T: 08/08 19 38 Tony Christy MD IMG DIAGNOSTIC IMAGING ORDER IRWIN CT ABDOMEN PELVIS W CONTRAST (08/08/2020 15:36 EDT) Anatomical Region Laterality Modality Body, Abdomen, Pelvis, Abdomen and Pelvis Computed Tomography Specimen (Source) Anatomical Collection Method Collection Time Re ceived Time Location / / Volume Laterality 08/08/2020 15:36 EDT Narrative 08/08/2020 15:36 EDT ?[facility]: [facility] ?[address] ?[place], [place] [address] ?Diagnostic Imaging Report ? Signed ? Patient Name:ADOLPH,DAVID F ? Date of :1950 ?MR Number:[id number] ? Age:69 ?Sex:M ? Category: CT ?Date [...] regarding this report , [facility] at [phone] ? Dictated by: Temo Son MD ?D/ 15 ?? 36 ?? Transcribed by: DEBRA ?D/T: ? E-Signed by: Temo Son MD ?D/ 19 ?? 36 ?? Procedure Note Temo Son MD - 08/08/2020 [facility] [place] [id number] Diagnostic Imaging Report Signed Patient Name:DAVID FARFAN r:[id number] Date of :1950 MR Number:[id number] Age:69 Sex:M Category: CT Date of Exam:08/08/20 Procedure: CT: Abd Pelvis; wit cntrst A ccession: [id number] Ordering Physician: Tony Christy MD Patient [...] report , please contact the [facility] at [phone] Dictated by: Temo Son MD D/T: 08/08 15 36 Transcribed by: DEBRA D/T: E-Signed by: Temo Son MD D/T: 08/08 36 Tony Christy MD IMG CT ORDERABLES documented in this encounter Visit Diagnoses Not on filedocumented in this encounter Care Teams V Block Saw Operator Relationship Specialty Start Date End Date Katia Stone PA-C PCP - General 05/02/17 [address] [place] [phone] documented as of this encounter
--- OUTSIDE RECORDS SUMMARY | 2022-01-31 15:59 | XMS_ITS | Encounter Summary ---
:1950 Author Organization [facility] Address [address] [place] [address] Care Team Providers Name Role Phone Katia Stone PA-C Primary Care Provider Encounter Details Date Type Department Care Team Description 09/10/2020 Results Only [facility] Rowan Abad NP [phone] [place] [phone] (Wo rk) Social History Tobacco Use [...] encounter Results PLATELET COUNT (09/10/2020 5:40 EDT) athologist Signature PLATELET COUNT 250 150 - 450 09/10/2020 [facility] 10 3/uL 6:29 EDT CENTER LAB Specimen Anatomical Collection Method Collection Time Receive d Time (Source) Location / / Volume Laterality 09/10/2020 5:40 09/10/2020 6 :11 EDT EDT Narrative [facility] - 09/10/2020 6 :49 EDT Comment ENOXAPARIN MONITORING Rowan Abad POWDER MIXER HEMATOLOGY & PF4 ORDERABLES Performing Organization Address City/[facility]/ZIP Code Phon e Number [facility] [address] [place] [phone] (ABNORMAL) CREATININE WITH GFR - PMC (09/10/2020 5:40 EDT) athologist Signature Creatinine 0.57 (L) 0.70 - 09/10/2020 [place] 1.30 mg/dl 6:42 [facility] LAB Estimated GFR >60 >60 09/10/2020 [place] 6:42 [facility] LAB Comment: EGFR UNITS: mL/min/1.73 m 2 CKD-EPI Equation used to calculate. Specimen Anatomical Collection Method Collection Time Receive d Time (Source) Location / / Volume Laterality 09/10/2020 5:40 09/10/2020 6 :11 EDT EDT Rowan Abad NP CHEMISTRY & BLOOD GAS ORDERA BLES Performing Organization Address City/[facility]/ZIP Code Phon e Number [facility] [address] [place] [phone] documented in this encounter Visit Diagnoses Not on filedocumented in this encounter Care Teams Mobile Architect Relationship Specialty Start Date End Date Katia Stone PA-C PCP - General 05/02/17 [address] [place] [phone] documented as of this encounter
--- OUTSIDE RECORDS SUMMARY | 2022-01-31 15:59 | XMS_ITS | Encounter Summary ---
:1950 Author Organization [facility] Address [address] [place] [address] Care Team Providers Name Role Phone Katia Stone PA-C Primary Care Provider Encounter Details Date Type Department Care Team Description 08/29/2020 Results Only [facility]- [facility] Rowan Abad NP [phone] [place] [phone] (Wo rk) Social History Tobacco Use [...] WITH GFR - PMC (08/29/2020 5:05 EDT) athologist Signature Creatinine 0.61 (L) 0.70 - 08/29/2020 [place] 1.30 mg/dl 5:41 EDT [facility] LAB Estimated GFR >60 >60 08/29/2020 [place] 5:41 [facility] LAB Comment: EGFR UNITS: mL/min/1.73 m 2 CKD-EPI Equation used to calculate. Specimen Anatomical Collection Method Collection Time Receive d Time (Source) Location / / Volume Laterality 08/29/2020 5:05 08/29/2020 5 :23 EDT EDT Rowan Abad NP CHEMISTRY & BLOOD GAS ORDERA BLES Performing Organization Address City/[facility]/ZIP Code Phon e Number [facility] [address] [place] [phone] PLATELET COUNT (08/29/2020 5:05 EDT) athologist Signature PLATELET COUNT 324 150 - 450 08/29/2020 [facility] 10 3/uL 5:39 EDT CENTER LAB Specimen Anatomical Collection Method Collection Time Receive d Time (Source) Location / / Volume Laterality 08/29/2020 5:05 08/29/2020 5 :23 EDT EDT Narrative [facility] LAB - 08/29/2020 5 :41 EDT Comment ENOXAPARIN MONITORING Rowan Abad NP HEMATOLOGY & PF4 ORDERABLES Performing Organization Address City/State/ZIP Code Phon e Number [facility] [address] [place] [phone] documented in this encounter Visit Diagnoses Not on filedocumented in this encounter Care Teams Bar Tender Relationship Specialty Start Date End Date Katia Stone PA-C PCP - General 05/02/17 [address] [place] [phone] documented as of this encounter
--- OUTSIDE RECORDS SUMMARY | 2022-01-31 15:59 | XMS_ITS | Encounter Summary ---
:1950 Author Organization [facility] Address [address] [place] [address] Care Team Providers Name Role Phone Katia Stone PA-C Primary Care Provider Encounter Details Date Type Department Care Team Description 08/25/2020 Lab Requisition [facility] Outr Resulting Lab, Pathology & Laboratory Provider [facility] [address] [place] [address] Social History Tobacco Use Types [...] Results (ABNORMAL) BACTERIAL CULTURE/SMEAR (08/25/2020 14:15 EDT) [facility] Method Time Signature Organism ID Few Usual skin 08/27/2020 [facility] MEDICAL jesi 15:22 EDT [facility] Smear Few Neutrophils 08/27/2020 [facility] MEDICAL Present (A) 15:22 EDT [facility] Smear No bacteria 08/27/2020 [facility] MEDICAL seen (A) 15:22 EDT [facility] Specimen Anatomical Collection Method Collection Time Receive d Time (Source) Location / / Volume Laterality Swab ENTIRE UPPER LIMB 08/25/2020 14:15 2020 / Unknown EDT 21:17 EDT Provider Outr Resulting Lab MICROBIOLOGY - GENERAL ORD ERABLES Performing Organization Address City/State/ZIP Code Phon e Number [facility] [address] [place] [address] SERVICES documented in this encounter Visit Diagnoses Not on filedocumented in this encounter Care Teams Weapons Officer [employer] Relationship Specialty Start Date End Date Katia Stone, PABijalC PCP - General 05/02/[address] [place] [phone] documented as of this encounter
--- OUTSIDE RECORDS SUMMARY | 2022-01-31 15:59 | XMS_ITS | Encounter Summary ---
:1950 Author Organization [facility] Address [address] [place] [address] Care Team Providers Name Role Phone Katia Stone PA-C Primary Care Provider Encounter Details Date Type Department Care Team Description 07/28/2020 Results Only [facility] - Augustina Stone PA-C [facility] [address] [place] [address] [place], [place] [id number] [phone] Social History Tobacco Use Types Packs/Day Years [...] 14:38 Resul ts for this GROUP - PMC EDT procedure are i n the results section. FOLATE Routine 07/28/2020 14:38 Results for this EDT procedure are i n the results section. VITAMIN B12 Routine 07/28/2020 14:38 Results for this EDT procedure are i n the results section. documented in this encounter Results FOLATE (07/28/2020 14:38 EDT) athologist Signature Folate 9.0 >8.6 ng/mL 08/01/2020 [facility] 9:08 EDT CENTER LAB Specimen Anatomical Collection Method Collection Time Receive d Time (Source) Location / / Volume Laterality 07/28/2020 14:38 08/01/2020 9:03 EDT EDT Katia Stone PA-C CHEMISTRY & BLOOD GAS ORDERA BLES Performing Organization Address City/[facility]/ZIP Code Phon e Number [facility] [address] [place] [address] VITAMIN B12 (07/28/2020 14:38 EDT) athologist Signature Vitamin B12 265 193 - 986 08/01/2020 [facility] pg/mL 9:08 EDT CENTER LAB Comment: The results of this assay can be falsely elevated due to the consumption of Biotin. Specimen Anatomical Collection Method Collection Time Receive d Time (Source) Location / / Volume Laterality 07/28/2020 14:38 08/01/2020 9:03 EDT EDT Katia Stone PA-C CHEMISTRY & BLOOD GAS ORDERA BLES Performing Organization Address City/[facility]/ZIP Code Phon e Number [facility] [address] [place] [address] (ABNORMAL) IRON,TIBC,FERRITIN GROUP - PMC (07/28/2020 14:38 EDT) Patholo gist Method Time Signature Iron 158 65 - 175 08/01/2020 [place] mcg/dL 9:08 [facility] Iron Binding 212 (L) 250 - 450 08/01/2020 [place] Capacity mcg/dL 9:08 [facility] PERCENT IRON 75 (H) 14 - 50 % 08/01/2020 [place] SATURATION - 9:08 [facility] Ferritin >1,000 (H) 26 - 388 08/01/2020 [place] ng/mL 9:08 [facility] LAB Specimen Anatomical Collection Method Collection Time Receive d Time (Source) Location / / Volume Laterality 07/28/2020 14:38 08/01/2020 9:03 EDT EDT Katia Stone PA-C CHEMISTRY & BLOOD GAS ORDERA BLES Performing Organization Address City/[facility]/ZIP Code Phon e Number [facility] [address] [place] [address] MESSAGE - PMC (07/28/2020 14:38 EDT) P athologist Signature MESSAGE - PMC 07/29/2020 [facility] 2:55 EDT CENTER LAB Comment: WE HAVE NOT RECEIVED ORDERS. PLEASE SEND THEM TO US. THANK YOU. Specimen Anatomical Collection Method Collection Time Receive d Time (Source) Location / / Volume Laterality 07/28/2020 14:38 07/28/2020 EDT 15:49 EDT Narrative [facility] - 07/29/2020 2 :55 EDT NO ORDERS TIGER AND LAV Katia Stone PA-C CHEMISTRY & BLOOD GAS ORDERA BLES Performing Organization Address City/[facility]/ZIP Code Phon e Number [facility] [address] [place] [address] documented in this encounter Visit Diagnoses Not on filedocumented in this encounter Care Teams Urology Teacher Relationship Specialty Start Date End Date Katia Stone PA-C PCP - General 05/02/17 [address] [place] [phone] documented as of this encounter
--- OUTSIDE RECORDS SUMMARY | 2022-01-31 15:59 | XMS_ITS | Encounter Summary ---
:1950 Author Organization [facility] Address [address] [place] [address] Care Team Providers Name Role Phone Katia Stone PA-C Primary Care Provider Encounter Details Date Type Department Care Team Description 08/18/2020 Results Only [facility] - Junior Ruiz MD [facility] [address] [place], [place] [phone] (Wo rk) Social History Tobacco Use [...] BASIC METABOLIC PANEL (BMP) (08/18/2020 5:15 EDT) P athologist Signature Sodium 138 136 - 145 08/18/2020 [facility] mEq/L 5:47 [facility] Potassium 3.3 (L) 3.5 - 5.1 08/18/2020 [facility] mEq/L 5:47 [facility] Chloride 101 96 - 107 08/18/2020 [facility] mEq/L 5:47 [facility] CO2 Total 31.3 21 - 32 08/18/2020 [facility] mEq/L 5:47 [facility] Anion Gap 5.7 mEq/L 08/18/2020 [facility] 5:47 [facility] BUN 9 7 - 25 08/18/2020 [facility] mg/dl 5:47 [facility] Creatinine 0.66 (L) 0.70 - 08/18/2020 [facility] 1.30 mg/dl 5:47 [facility] Estimated GFR >60 >60 08/18/2020 [facility] 5:47 [facility] Comment: EGFR UNITS: mL/min/1.73 m 2 CKD-EPI Equation used to calculate. Glucose 86 74 - 106 mg/dl 08/18/2020 5:[address] [facility] Calcium 8.0 (L) 8.5 - 10.1 mg/dl 08/18/2020 5:47 T [facility] Specimen Anatomical Collection Method Collection Time Receive d Time (Source) Location / / Volume Laterality 08/18/2020 5:15 08/18/2020 5 :27 EDT EDT Junior Ray MD CHEMISTRY & BLOOD GAS ORDERA BLES Performing Organization Address City/State/ZIP Code Phon e Number [facility] [address] [place] [address] (ABNORMAL) COMPLETE BLOOD COUNT (08/18/2020 5:15 EDT) [facility] gist Method Time Signature WBC 5.2 4.0 - 10.5 08/18/2020 [facility] 10 3[facility] RBC 2.68 (L) 4.70 - 08/18/2020 [facility] 6.00 10 5:41 EDT MEDICAL 6/uL CENTER LAB Hemoglobin 9.4 (L) 13.5 - 08/18/2020 [facility] 18.0 g/dL 5:[facility] HCT 27.5 (L) 42.0 - 08/18/2020 [facility] 52.0 % 5:[facility] MCV 102.6 (H) 78 - 100 08/18/2020 [facility] fL 5:41 [facility] MCH 35.1 (H) 27 - 31 pg 08/18/2020 [facility] 5:41 EDT [facility] MCHC 34.2 32 - 37 08/18/2020 [facility] g/dL 5:41 [facility] RDW-CV - PMC 15.2 (H) <14.7 % 08/18/2020 [facility] 5:41 [facility] PLATELET COUNT 233 150 - 450 08/18/2020 [facility] - PMC 10 3/uL 5:41 [facility] MPV 10.3 9.2 - 12.0 08/18/2020 [facility] fL 5:41 [facility] Specimen Anatomical Collection Method Collection Time Receive d Time (Source) Location / / Volume Laterality 08/18/2020 5:15 08/18/2020 5 :27 EDT EDT Junior Ray MD HEMATOLOGY & PF4 ORDERABLES Performing Organization Address City/State/ZIP Code Phon e Number [facility] [address] [place] [address] documented in this encounter Visit Diagnoses Not on filedocumented in this encounter Care Teams Arc Welding Machine Operator Relationship Specialty Start Date End Date Katia Stone PABijalC PCP - General 05/02/17 [address] [place] [phone] documented as of this encounter
--- OUTSIDE RECORDS SUMMARY | 2022-01-31 15:59 | XMS_ITS | Encounter Summary ---
:1950 Author Organization [facility] Address [address] [place] [address] Care Team Providers Name Role Phone Katia Stone PA-C Primary Care Provider Encounter Details Date Type Department Care Team Description 06/19/2020 Hospital Encounter [facility] Main Menard Pre-Surgical Testing [address] [place], [place] [id number] Social History Tobacco Use Types Packs/Day Years [...] hospital - to be organized by his shelter case manager Nila Villalobos. Pt refused to listen to instructions for surgery states I am waiting for the paper work that tells me what meds to take. This RN spokewith Cat Sutherland product safety technical assistant to discuss above. Cat to call pt tomorrow to confirm informationson medications as well as instructions otherwise. She will also contact manager rn case to confirm ride. documented in this encounter Plan of Treatment Not on filedocumented as of this encounter Visit Diagnoses Not on filedocumented in this encounter Care Teams Division Manager Relationship Specialty Start Date End Date Katia Stone PABijalC PCP - General 05/02/[address] [place] [phone] documented as of this encounter
--- OUTSIDE RECORDS SUMMARY | 2022-01-31 15:59 | XMS_ITS | Encounter Summary ---
:1950 Author Organization [facility] Address [address] [place] [address] Care Team Providers Name Role Phone Katia Stone PA-C Primary Care Provider Encounter Details Date Type Department Care Team Description 08/25/2020 Results Only [facility] Rowan Abad NP [phone] [place] [phone] (Wo rk) Social History Tobacco Use [...] FROM Routine 08/25/2020 14:15 Results for this [facility] EDT procedure are i n the results section. HSV (HERPES SIMPLEX Routine 08/25/2020 14:15 Resu lts for this VIRUS) MOLECULAR EDT procedure a re in DETECTION, PCR the results section. CREATININE WITH GFR Routine 08/25/2020 6:09 EDT R esults for this - [facility] procedure are i n the results section. PLATELET COUNT Routine 08/25/2020 6:09 EDT Result s for this procedure are i n the results section. documented in this encounter Results (ABNORMAL) ORGANISM ID FROM [facility] (08/25/2020 14:15 EDT) Analysis Performed At Patho logist Time Signature GRAM SMEAR - SEE NOTES 08/27/2020 [facility]: RESULT: Few Neutrophils Present No bacteria seen SWATI RESULTS/ORGANISM ID - Few Usual skin 17:[address] [facility] C[facility] LAB Comment: Spec Description ?? Additional Informati on:: LEFT ARM Source:ARM Test performed or referred by The [address] [address] Specimen Anatomical Collection Method Collection Time Receive d Time (Source) Location / / Volume Laterality 08/25/2020 14:15 08/25/2020 EDT 14:34 EDT Narrative [facility] - 08/27/2020 1 7:20 EDT ARM LEFT ARM Rowan Abad NP MICROBIOLOGY - GENERAL ORDER IRWIN Performing Organization Address City/State/ZIP Code Phon e Number [facility] [address] [place] [address] HERPES SIMPLEX VIRUS MOLECULAR DETECTION, PCR (08/25/2020 14:15 EDT) P athologist Signature HERPES SIMPLEX Negative Negative 08/26/2020 [facility] VIRUS I DNA - 17:21 EDT [facility] HERPES SIMPLEX Negative Negative 08/26/2020 [facility] VIRUS 2 DNA - 19:39 T [facility] Comment: SOURCE:: ARM Spec Description ?? Additional Informati on:: LEFT ARM Source:LEFT ARM Test performed or referred by The [address] [address] Specimen Anatomical Collection Method Collection Time Receive d Time (Source) Location / / Volume Laterality 08/25/2020 14:15 08/25/2020 EDT 14:[address] [facility] - 08/26/2020 1 9:39 EDT ARM LEFT ARM Rowan Abad NP MICROBIOLOGY - GENERAL ORDER IRWIN Performing Organization Address City/[facility]/ZIP Code Phon e Number [facility] [address] [place] [address] (ABNORMAL) CREATININE WITH GFR - PMC (08/25/2020 6:09 EDT) athologist Signature Creatinine 0.60 (L) 0.70 - 08/25/2020 [facility] 1.30 mg/dl 7:10 [facility] Estimated GFR >60 >60 08/25/2020 [place] 7:10 [facility] Comment: EGFR UNITS: mL/min/1.73 m 2 CKD-EPI Equation used to calculate. Specimen Anatomical Collection Method Collection Time Receive d Time (Source) Location / / Volume Laterality 08/25/2020 6:09 08/25/2020 6 :44 EDT EDT Rowan Abad NP CHEMISTRY & BLOOD GAS ORDERA BLES Performing Organization Address City/[facility]/ZIP Code Phon e Number [facility] [address] [place] [address] PLATELET COUNT (08/25/2020 6:09 EDT) athologist Signature PLATELET COUNT 326 150 - 450 08/25/2020 [facility] 10 3/uL 7:02 EDT CENTER LAB Specimen Anatomical Collection Method Collection Time Receive d Time (Source) Location / / Volume Laterality 08/25/2020 6:09 08/25/2020 6 :[address] [facility] - 08/25/2020 7 :06 EDT Comment [employer] [facility] Rowan Abad NP HEMATOLOGY & PF4 ORDERABLES Performing Organization Address City/[facility]/ZIP Code Phon e Number [facility] [address] [place] [address] documented in this encounter Visit Diagnoses Not on filedocumented in this encounter Care Teams Desktop Support Associate Relationship Specialty Start Date End Date Katia Stone, BELLAC PCP - General 05/02/17 [address] [place] [phone] documented as of this encounter
--- OUTSIDE RECORDS SUMMARY | 2022-01-31 15:59 | XMS_ITS | Encounter Summary ---
:1950 Author Organization [facility] Address [address] [place] [address] Care Team Providers Name Role Phone Katia Stone PA-C Primary Care Provider Reason for Visit Reason Onset Date Comments Other 06/13/2020 Encounter Details Date Type Department Care Team Description 06/13/2020 Telephone [facility] Cardiothoracic Cat Sutherland RN Other Surgery - [facility] s [address] [place], [place] [id number] Social History Tobacco Use Types Packs/Day Years [...] for surgery at 1210 on 06/26. His Pipe Supervisor with PCP is setting up his ride for [place] on 06/26 and for his COVID test that will need to be done 3-4 days prior to surgery. Patient verbalized understanding. I called the patient's Pipe Supervisor at [facility] at [phone] and left her a message (Maru Villalobos, TISH). She will be arranging his ride to [place] on DOSA and for his COVID test. I have updated our KEY ENTRY OPERATOR and Beulah FAIR CM at [facility] as well. documented in this encounter Plan of Treatment Not on filedocumented as of this encounter Visit Diagnoses Not on filedocumented in this encounter Care Teams Director Of Cardiopulmonary Services Relationship Specialty Start Date End Date Katia Stone PA-C PCP - General 05/02/17 [address] [place] [phone] documented as of this encounter
--- OUTSIDE RECORDS SUMMARY | 2022-01-31 16:00 | XMS_ITS | Encounter Summary ---
:1950 Author Organization [facility] Address [address] [place] [address] Care Team Providers Name Role Phone Katia Stone PA-C Primary Care Provider Reason for Visit Reason Onset Date Comments Coordination Of Care 04/19/2020 Returning Call 04/20/2020 Encounter Details Date Type Department Care Team Description 04/19/2020 Telephone [facility] Tony Rosenberg [facility]; Cardiology - Chaitanya Jasmine MD Returning Call [address] [place], [place] Suite [facility] [phone] [place] [address] [place] [phone] Social History Tobacco Use Types Packs/Day [...] 04/20/2020 1508 EST Patient's director of casework returning call to Belinda. Please call. Telephone Encounter - Belinda Falk RN - 04/20/2020 1457 EST Call placed to director of casework regarding patient unable to reach by phone. Message left on voice mail to call office back with call back number [phone]. Telephone Encounter - Conner Mccall - 04/19/2020 1118 EST Reason for Call: Coordination Of Care Summary/Symptoms: Maru patients Material Dispatcher reaching out to get more information on the appt Dr Rosenberg talked about for patient's pacemaker. Dr Rosenberg was going to have an appt for the patient with another cardio surgeon Maru states. Maru was going to call [facility] but stated they always ask Chaitanya. Please call back to discuss Conner Mccall 04/19/2020 11:19 documented in this encounter Plan of Treatment Not on filedocumented as of this encounter Visit Diagnoses Not on filedocumented in this encounter Care Teams Extrusion Die Repairer Relationship Specialty Start Date End Date Katia Stone PA-C PCP - General 05/02/17 [address] [place] [phone] documented as of this encounter
--- OUTSIDE RECORDS SUMMARY | 2022-01-31 16:00 | XMS_ITS | Encounter Summary ---
:1950 Author Organization [facility] Address [address] [place] [address] Care Team Providers Name Role Phone Katia Stone PA-C Primary Care Provider Reason for Visit Reason Onset Date Comments Other 07/16/2017 Encounter Details Date Type Department Care Team Description 07/16/2017 Telephone [facility] Caitie Atwood NP Other Cardiology - [address] [place], [place] [phone] (Wo rk) Social History [...] Encounter - Caitie Atwood NP - 07/16/2017 7738 EDT I spoke to the assurance services manager health care at the [facility]. There following the patient. [...] on filedocumented in this encounter Care Teams Fuel Cell Systems Engineer Relationship Specialty Start Date End Date Katia Stone, PABijalC PCP - General 05/02/17 [address] [place] [phone] documented as of this encounter
--- OUTSIDE RECORDS SUMMARY | 2022-01-31 16:00 | XMS_ITS | Encounter Summary ---
:1950 Author Organization [facility] Address [address] [place] [address] Care Team Providers Name Role Phone Katia Stone PA-C Primary Care Provider Reason for Referral Radiology Services (Routine) - Authorization Not Required Specialty Diagnoses / Procedures Referred By Contact Refer red To Contact Diagnoses 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, initial encounter José Miguel Roca PA-C Procedures XR CHEST 2 VIEWS [address] [phone] Referral ID Status Reason Start Expiration Visits Visits Date Date Requested Authorized [id number] Authorization Not 05/16/2020 1 1 Required Reason for Visit Radiology Services (Routine) - Authorization Not Required Specialty Diagnoses / Procedures Referred By Contact Refer red To Contact Diagnoses 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, initial encounter José Miguel Roca PA-C Procedures XR CHEST 2 VIEWS [address] [phone] Referral ID Status Reason Start Expiration Visits Visits Date Date Requested Authorized [id number] Authorization Not 05/16/2020 1 1 Required Encounter Details Date Type Department Care Team Description 05/16/2020 Hospital Encounter [facility] Displac ement of Radiology Xray electrode fer cruz of Outpatient - [facility] cardiac [facility] initial encounter [address] [place] [address] Social History Tobacco Use Types Packs/Day Years [...] ceived Time Location / / Volume Laterality 05/16/2020 11:56 EDT Impressions 05/16/2020 11:56 EDT 1. ??No significant change from prior. I have personally reviewed the images an d the above interpretation and agree with the findings. Narrative 05/16/2020 11:56 EDT XR CHEST 2 VIEWS [...] right pleural calcifications are redemonstrated. Procedure Note Zai Alberto MD - 05/16/2020Format ting of this note might be different from the original. XR CHEST 2 VIEWS 05/16/2020 11:00 AM [...] above interpretation and agree with the findings. José Miguel Roca PA-C IMG DIAGNOSTIC IMAGING ORDER IRWIN documented in this encounter Visit Diagnoses Diagnosis Displacement of electrode lead of cardia c pacemaker, initial encounter documented in this encounter Care Teams Metal Sprayer Production Relationship Specialty Start Date End Date Katia Stone PA-C PCP - General 05/02/17 [address] [place] [phone] documented as of this encounter
--- OUTSIDE RECORDS SUMMARY | 2022-01-31 16:00 | XMS_ITS | Encounter Summary ---
:1950 Author Organization [facility] Address [address] [place] [address] Care Team Providers Name Role Phone Katia Stone PA-C Primary Care Provider Reason for Visit Reason Onset Date Comments Labs Only 07/22/2017 from 07/16 Encounter Details Date Type Department Care Team Description 07/22/2017 Telephone [facility] Tony Rosenberg Labs On (from 07/16) Cardiology - Chaitanya Jasmine MD [address] [place] [address] [address] [place] [address] (Wo rk) Social History Tobacco [...] call office back with call back number [phone]. Telephone Encounter - Belinda Falk RN - 07/23/2017 1054 EDT Call received from Yessica with questions on when patient's follow-up appointment was with Dr. Rosenberg, where the labwork needed to be sent to, and in put from cardiology. Provided Yessica the provider access line for PCP to discuss patient's care with Dr. Rosenberg. Also discussed with Yessica since patient is seen in [facility] records are not accessible to our office(labs, and outside office notes). Yessica to review with PCP and formulate coordination of care with [facility]. Telephone Encounter - Belinda Falk RN - 07/22/2017 1500 EDT Call placed to Yessica regarding Tim Mera unable to reach patient by phone. Message left on voice mail to call office back with call back number [phone]. Telephone Encounter - Morena Lux - 07/22/2017 1456 EDT Yessica from [facility] Regarding patients labs from 07/16 Has anyone addressed them Please call to advise documented in this encounter Plan of Treatment Not on filedocumented as of this encounter Visit Diagnoses Not on filedocumented in this encounter Care Teams Audio Visual Director Relationship Specialty Start Date End Date Katia Stone PA-C PCP - General 05/02/17 [address] [place] [phone] documented as of this encounter
--- OUTSIDE RECORDS SUMMARY | 2022-01-31 16:00 | XMS_ITS | Encounter Summary ---
:1950 Author Organization [facility] Address [address] [place] [address] Care Team Providers Name Role Phone Katia Stone PA-C Primary Care Provider Reason for Visit Reason Onset Date Comments Other 08/15/2017 Returning Call 08/15/2017 To Belinda Encounter Details Date Type Department Care Team Description 08/15/2017 Telephone [facility] [place], [place]; Re turning Call Cardiology - Chaitanya Trevino RN (To Belinda) [address] [place], [place] [address] Social History Tobacco Use [...] on colchicine until hasfollow-up with Dr. Torres. Telephone Encounter - Kasia Nunez - 08/15/2017 1313 EDT Reason for Call: Other and Returning Call (To Belinda) Summary/Symptoms: Yessica called back. If you cannot reach her please press 0 and have her paged Kasia Nunez 08/15/2017 13:13 Telephone Encounter - Belinda Falk RN - 08/15/2017 1255 EDT Call back to Yessica at PCP office message left for Yessica to call office back. Reviewed medication in question Colchicine with Jered Atwood and her recommendations to continue medication until evaluated by Dr. Torres. Call back number given. Telephone Encounter - Belinda Falk RN - 08/15/2017 1243 EDT Spoke with Yessica (foster care social worker at PCP) in regards to patient Tim [...] Yessica patient needs to follow-up with primary ornamental iron worker in [place] Dr. Torres.Per Yessica patient has not seen Dr. Torres since before his first admission to [facility] on 04/30/17. Mentioned to Yessica, patient needs to be following up with PCP and primary ornamental iron worker. Yessica expressed understanding and will reach out to Dr. Torres's office at [facility]. Discharge summaries and last OV note faxed to Dr. Torres's office. Discussed with Yessica if patient is having increased SOB and worsening symptoms, and is not able to be seen locally. He may need to go to the ER, to be evaluated and imaging completed. Per Yessica she was to contact patient and suggest patient go to ER. Telephone Encounter - Belinda Falk RN - 08/15/2017 1121 EDT Call placed to Yessica regarding Tim Mera unable to reach by phone. Left detailed message, patientis [place] patient and no showed for visit with Dr. Rosenberg on 08/06. Instructed Yessica to reach out [facility] where his primary ornamental iron worker is established on voice mail. documented in this encounter Plan of Treatment Not on filedocumented as of this encounter Visit Diagnoses Not on filedocumented in this encounter Care Teams Personal Care Worker Relationship Specialty Start Date End Date Katia Stone PA-C PCP - General 05/02/17 [address] [place] [phone] documented as of this encounter
--- OUTSIDE RECORDS SUMMARY | 2022-01-31 16:00 | XMS_ITS | Encounter Summary ---
:1950 Author Organization [facility] Address [address] [place] [address] Care Team Providers Name Role Phone Katia Stone PA-C Primary Care Provider Encounter Details Date Type Department Care Team Description 05/16/2020 Documentation Visit [facility] Ja Browne MD Infectious Disease - [address] [facility], [address] [place], [place] [phone] [place] [phone] (Wo rk) Social History Tobacco Use Types [...] - 05/16/2020 0947 EDT Upon entering the [facility], patient answered yes to one [...] patient sent to appointment. Kem Thomson RN, [id number] documented in this encounter Plan of Treatment Not on filedocumented as of this encounter Visit Diagnoses Not on filedocumented in this encounter Care Teams Stopper Grinder Relationship Specialty Start Date End Date Katia Stone PA-C PCP - General 05/02/17 [address] [place] [phone] documented as of this encounter
--- OUTSIDE RECORDS SUMMARY | 2022-01-31 16:00 | XMS_ITS | Encounter Summary ---
:1950 Author Organization [facility] Address [address] [place] [address] Care Team Providers Name Role Phone Katia Stone PA-C Primary Care Provider Encounter Details Date Type Department Care Team Description 12/12/2018 Results Only [facility] - Candelaria Vila MD [facility] [id number] [place] [address], [place] [address] (Wo rk) Social History Tobacco [...] (ALB,ALK PHOS,ALT,AST,DBIL,TOT BOSSMAN,TOT PROT) (12/12/2018 22:16 EDT) Analysis Performed At Patho logist Time Signature BILIRUBIN - PMC 0.40 0.00 - 12/12/2018 [facility] 1.00 mg/dl 23:24 [facility] DIRECT BILIRUBIN 0.10 0.00 - 12/12/2018 [facility] - PMC 0.30 mg/dl 23:24 [facility] INDIRECT 0.30 0.00 - 12/12/2018 [facility] BILIRUBIN - PMC 0.80 mg/dl 23:24 [facility] AST 68 (H) 15 - 37 12/12/2018 [facility] U/L 23:24 [facility] ALT 53 12 - 78 12/12/2018 [facility] U/L 23:24 [facility] Alkaline 98 46 - 116 12/12/2018 [facility] Phosphatase U/L 23:24 [facility] Total Protein 7.4 6.4 - 8.2 12/12/2018 [facility] g/dl 23:24 [facility] Albumin 3.0 (L) 3.4 - 5.0 12/12/2018 [facility] g/dl 23:24 [facility] GLOBULIN - PMC 4.4 g/dl 12/12/2018 [facility] 23:24 [facility] ALBUMIN/GLOBULIN 0.6 12/12/2018 [facility] RATIO - PMC 23:24 [facility] Specimen Anatomical Collection Method Collection Time Receive d Time (Source) Location / / Volume Laterality 12/12/2018 22:16 12/12/2018 EDT 23:12 EDT Wang Vila MD CHEMISTRY & BLOOD GAS ORDERA BLES Performing Organization Address City/[facility]/ZIP Code Phon e Number [facility] [address] [place], [place] [id number] [place] [address] LAB PROCALCITONIN - PMC (12/12/2018 22:16 EDT) P athologist Signature Procalcitonin <0.05 <0.50 ng/mL 12/12/2018 [facility]13 [facility]T [facility] LAB Comment: Concentration of < 0.5 ng/mL represents a low risk of severe sepsis and/or septic shock. It is recommended to retest PCT within 6 -24 hours if any concentrations < 2 ng/mL are obtained. Concentrations < 0.5 ng/mL do not exclud e an infection, on account of localized infections (without systemic signs) which can be associated with such low co ncentrations, or a systemic infection in its initial stages (< 6 hours). Furthermore, increased procalcitonin can occur without infection. Specimen Anatomical Collection Method Collection Time Receive d Time (Source) Location / / Volume Laterality 12/12/2018 22:16 12/12/2018 EDT 22:43 EDT Wang Vila MD HEMATOLOGY & PF4 ORDERABLES Performing Organization Address City/[facility]/ZIP Code Phon e Number [facility] [address] [place], [place] [id number] [place] [address] LAB (ABNORMAL) BNP - PMC (12/12/2018 22:15 EDT) Analysis Performed At Patho logist Time Signature B-TYPE 123 (H) <100 pg/mL 12/12/2018 [facility] NATRIURETIC 22:40 EDT MEDICAL PEPTIDE - [facility] Specimen Anatomical Collection Method Collection Time Receive d Time (Source) Location / / Volume Laterality 12/12/2018 22:15 12/12/2018 EDT 22:19 EDT Wang Vila MD CHEMISTRY & BLOOD GAS ORDERA BLES Performing Organization Address City/[facility]/ZIP Code Phon e Number [facility] [address] [place] [address] [facility] TROPONIN I (12/12/2018 22:06 EDT) athologist Signature Troponin I <0.05 <0.10 12/12/2018 [facility] (ng/mL) ng/ml 23:00 T CENTER LAB Comment: REFERENCE RANGE: Negative: ? <0.10 ng/mL Indeterminate: 0.10-0.80 ng/mL Positive: ? >0.80 ng/mL ........................................ ... The results of this assay can be falsely decreased due to the consumption of Biot in. Specimen Anatomical Collection Method Collection Time Receive d Time (Source) Location / / Volume Laterality 12/12/2018 22:06 12/12/2018 EDT 22:18 EDT Wang Vila MD CHEMISTRY & BLOOD GAS ORDERA BLES Performing Organization Address City/State/ZIP Code Phon e Number [facility] [address] [place] [address] [facility] (ABNORMAL) BASIC METABOLIC PANEL,RANDOM - PMC (12/12/2018 22:06 EDT) athologist Signature Sodium 120 (L) 136 - 145 12/12/2018 [facility] mEq/L 23:00 [facility] Potassium 4.6 3.5 - 5.1 12/12/2018 [facility] mEq/L 23:00 [facility] Chloride 86 (L) 96 - 107 12/12/2018 [facility] mEq/L 23:00 [facility] CO2 Total 25.2 21 - 32 12/12/2018 [facility] mEq/L 23:00 [facility] Anion Gap 8.8 mEq/L 12/12/2018 [facility] 23:00 [facility] BUN 7 7 - 25 12/12/2018 [facility] mg/dl 23:00 [facility] Creatinine 0.61 (L) 0.7 - 1.30 12/12/2018 [facility] mg/dl 23:00 [facility] Estimated GFR >60 >60 12/12/2018 [facility] 23:02 [facility] Comment: EGFR UNITS: mL/min/1.73 m 2 CKD-EPI Equation used to calculate. GLUCOSE,RANDOM - PMC 89 70 - 180 mg/dl 12/12/2018 23: 00 EDT [facility] Calcium 8.1 (L) 8.5 - 10.5 12/12/2018 23:00 EDT [facility] EDICAL mg/dl CENTER LAB Specimen Anatomical Collection Method Collection Time Receive d Time (Source) Location / / Volume Laterality 12/12/2018 22:06 12/12/2018 EDT 22:18 EDT Wang Vila MD CHEMISTRY & BLOOD GAS ORDERA BLES Performing Organization Address City/State/ZIP Code Phon e Number [facility] [address] [place] [address] [facility] documented in this encounter Visit Diagnoses Not on filedocumented in this encounter Care Teams Textile Science Technician Relationship Specialty Start Date End Date Katia Stone PA-C PCP - General 05/02/17 [address] [place] [phone] documented as of this encounter
--- OUTSIDE RECORDS SUMMARY | 2022-01-31 16:00 | XMS_ITS | Encounter Summary ---
:1950 Author Organization [facility] Address [address] [place] [address] Care Team Providers Name Role Phone Katia Stone PA-C Primary Care Provider Encounter Details Date Type Department Care Team Description 08/20/2018 Historical Results [facility] - Giselle Stone, Only [facility] Lab [address] [place], [place] [phone] Social History Tobacco Use Types Packs/Day Years [...] 11:48 Results fo r this COMBO,FASTING - PMC EDT procedur e are in the results section. documented in this encounter Results (ABNORMAL) HEPATIC & CMP COMBO,FASTING - PMC (08/20/2018 11:48 EDT) athologist Signature Sodium 121 (L) 136 - 145 08/20/2018 [facility] 12:38 [facility] Potassium 4.7 3.5 - 5.1 08/20/2018 [facility] 12:38 [facility] Chloride 87 (L) 96 - 107 08/20/2018 [facility] 12:38 [facility] CO2 Total 28.2 21 - 32 08/20/2018 [facility] 12:38 [facility] Anion Gap 5.8 08/20/2018 [facility] 12:38 [facility] BUN 7 7 - 25 08/20/2018 [facility] 12:38 [facility] Creatinine 0.59 (L) 0.7 - 1.30 08/20/2018 [facility] 12:38 [facility] Estimated GFR >60 >60 08/20/2018 [facility] 12:49 [facility] Comment: EGFR UNITS: mL/min/1.73 m 2 CKD-EPI Equation used to calculate. Glucose 88 FASTIN-99 08/20/2018 12:38 [facility] Calcium 8.6 8.5 - 10.5 08/20/2018 12:38 [facility] CALCIUM,CORRECTED - 9.0 8.5 - 10.5 08/20/2018 12:38 [facility] BILIRUBIN - PMC 0.60 0.00 - 1.00 08/20/2018 12:38 EDT [facility] AST 41 (H) 15 - 37 08/20/2018 12:38 [facility] LAB ALT 47 12 - 78 08/20/2018 12:38 [facility] Alkaline Phosphatase 86 46 - 116 08/20/2018 12:38 [facility] Total Protein 7.5 6.4 - 8.2 08/20/2018 12:38 EDT [facility] Albumin 3.5 3.4 - 5.0 08/20/2018 12:38 EDT [facility] GLOBULIN - PMC 4.0 08/20/2018 12:38 EDT [facility] ALBUMIN/GLOBULIN RATIO 0.8 08/20/2018 12:38 EDT [facility] Specimen Anatomical Collection Method Collection Time Receive d Time (Source) Location / / Volume Laterality 08/20/2018 11:48 08/20/2018 EDT 12:07 EDT Katia Stone PA-C CHEMISTRY & BLOOD GAS ORDERA BLES Performing Organization Address City/State/ZIP Code Phon e Number [facility] [address] [place] [address] [facility] documented in this encounter Visit Diagnoses Not on filedocumented in this encounter Care Teams Boarding House Manager Relationship Specialty Start Date End Date Katia Stone PA-C PCP - General 05/02/[address] [place] [phone] documented as of this encounter
--- OUTSIDE RECORDS SUMMARY | 2022-01-31 16:00 | XMS_ITS | Encounter Summary ---
:1950 Author Organization [facility] Address [address] [place] [address] Care Team Providers Name Role Phone Katia Stone PA-C Primary Care Provider Encounter Details Date Type Department Care Team Description 12/12/2018 Results Only [facility] - Candelaria Vila MD Imaging [facility] [address] [facility] Radiology Results [facility], [address], [address] [place], [place] [address] [place] [address] [phone] (Wo rk) Social History Tobacco Use [...] XR CHEST 2 VIEWS (12/12/2018 22:15 EDT) Anatomical Region Laterality Modality Other Specimen (Source) Anatomical Collection Method Collection Time Re ceived Time Location / / Volume Laterality 12/12/2018 22:15 EDT Narrative 12/12/2018 22:15 EDT [facility] ?[address] ?[place] [address] ?Diagnostic Imaging Report ? Signed ? Patient Name:DAVID FARFAN ? Date of :1950 ?MR Number:[id number] ? Age:68 ?Sex:M ? Category: CR ?Date [...] regarding this report , please contact the [facility] at [phone] ? Dictated by: Alma Sherwood DO ?D/ ?? 2215 ?? Transcribed by: GABE ?D/T: ? E-Signed by: Alma Sherwood DO ?D/ ?? 2327 ? Procedure Note Alma Sherwood MD - [facility] [address] [address] Diagnostic Imaging Report Signed Patient Name:DAVID FARFAN r:[id number] Date of :1950 MR Number:[id number] Age:68 Sex:M Category: CR Date of Exam:12/12/18 [...] report , please contact the [facility] at [phone] Dictated by: Alma Sherwood/T: [id number] Transcribed by: GABE Barriga/T: E-Signed by: Alma Sherwood DO D/T: [id number] Wang Vila MD IMG DIAGNOSTIC IMAGING ORDER [facility] documented in this encounter Visit Diagnoses Not on filedocumented in this encounter Care Teams Forester Silviculture Relationship Specialty Start Date End Date Katia Stone PA-C PCP - General 05/02/[address] [place] [phone] documented as of this encounter
--- OUTSIDE RECORDS SUMMARY | 2022-01-31 16:00 | XMS_ITS | Encounter Summary ---
:1950 Author Organization [facility] Address [address] [place] [address] Care Team Providers Name Role Phone Katia Stone PA-C Primary Care Provider Encounter Details Date Type Department Care Team Description 01/12/2020 Results Only [facility] - Angelic Olguin MD [facility] [address] [place] [phone] (Wo rk) Social History Tobacco Use [...] GLUCOSE (NURSING) - PMC (01/12/2020 22:30 EST) P athologist Signature POC CAPILLARY 102 (H) 70 - 100 01/12/2020 [facility] GLUCOSE - PMC mg/dL 22:59 EST CENTER LAB Specimen Anatomical Collection Method Collection Time Receive d Time (Source) Location / / Volume Laterality 01/12/2020 22:30 01/12/2020 EST 22:58 EST Jayesh Olguin MD POINT OF CARE TEST ORDERABLE S Performing Organization Address City/State/ZIP Code Phon e Number [facility] [address] [place] [address] (ABNORMAL) ETHYL ALCOHOL LEVEL - PMC (01/12/2020 22:30 EST) Analysis Performed At Patho logist Time Signature ETHYL ALCOHOL 237.0 <10 mg/dL 01/12/2020 [place] LEVEL - PMC (CRIT 23:47 EST [facility] LAB Comment: Results called and read back to me by: Location: ED Full name: FERMIN FAROOQ Credentials: RN at 7569 on 01/12/20 by TESS. Medical Serum/Plasma Alcohol test report ed in mg/dL. Example of unit conversion from mg/dL to percentage: ?80 mg/dL is equivalent to 0.08 % Specimen Anatomical Collection Method Collection Time Receive d Time (Source) Location / / Volume Laterality 01/12/2020 22:30 01/12/2020 EST 23:[address] [facility] - 01/12/2020 2 3:47 EST Sample collected at time of saline lock or IV placement. Jayesh Olguin MD CHEMISTRY & BLOOD GAS ORDERA BLES Performing Organization Address [facility]/ZIP [facility] Phon e Number [facility] [address] [place] [address] TROPONIN I (01/12/2020 22:30 EST) athologist Signature Troponin I <0.050 0 - 0.056 01/12/2020 [facility] (ng/mL) ng/ml 23:32 [facility] Comment: Interpretation: The cutoff for an [...] Time (Source) Location / / Volume Laterality 01/12/2020 22:30 01/12/2020 EST 23:[address] [facility] - 01/12/2020 2 3:47 EST Sample collected at time of saline lock or IV placement. Jayesh Olguin MD CHEMISTRY & BLOOD GAS ORDERA BLES Performing Organization Address [facility] Phon e Number [facility] [address] [place] [address] (ABNORMAL) BASIC METABOLIC PANEL,RANDOM - PMC (01/12/2020 22:30 EST) athologist Signature Sodium 116 (CRIT 136 - 145 01/12/2020 [facility]) mEq/L 23:33 [facility] Comment: Results called and read back to me by: Location: ED Full name: DEBBIE JOSHUA Credentials: RN at 2332 on 01/12/20 by TESS. Potassium 4.3 3.5 - 5.1 mEq/L 01/12/2020 23:32 EST [facility] Chloride 83 (L) 96 - 107 mEq/L 01/12/2020 23:32 [facility] CO2 Total 24.6 21 - 32 mEq/L 01/12/2020 23:32 [facility] Anion Gap 10.4 mEq/L 01/12/2020 23:32 [facility] BUN 5 (L) 7 - 25 mg/dl 01/12/2020 23:32 [facility] Creatinine 0.62 (L) 0.70 - 1.30 mg/dl 01/12/2020 23:32 [facility] Estimated GFR >60 >60 01/12/2020 23:33 [facility] Comment: EGFR UNITS: mL/min/1.73 m 2 CKD-EPI Equation used to calculate. Glucose 89 70 - 180 mg/dl 01/12/2020 23:32 [facility] Calcium 8.2 (L) 8.5 - 10.1 mg/dl 01/12/2020 23:32 [facility] Specimen Anatomical Collection Method Collection Time Receive d Time (Source) Location / / Volume Laterality 01/12/2020 22:30 01/12/2020 EST 23:03 [facility] Narrative [facility] - 01/12/2020 2 3:47 EST Sample collected at time of saline lock or IV placement. Jayesh Olguin MD CHEMISTRY & BLOOD GAS ORDERA BLES Performing Organization Address City/State/ZIP Code Phon e Number [facility] [address] [place] [address] (ABNORMAL) HEPATIC FUNCTION PANEL (ALB,ALK PHOS,ALT,AST,DBIL,TOT BOSSMAN,TOT PROT) (01/12/2020 22:30 EST) Analysis Performed At Patho logist Time Signature BILIRUBIN - PMC 0.60 0.00 - 01/12/2020 [facility] 1.00 mg/dl 23:32 [facility] DIRECT BILIRUBIN 0.20 0.00 - 01/12/2020 [facility] - PMC 0.30 mg/dl 23:32 [facility] INDIRECT 0.40 0.00 - 01/12/2020 [facility] BILIRUBIN - PMC 0.80 mg/dl 23:32 [facility] AST 74 (H) 15 - 37 01/12/2020 [facility] U/L 23:32 [facility] ALT 44 16 - 63 01/12/2020 [facility] U/L 23:32 [facility] Alkaline 103 46 - 116 01/12/2020 [facility] Phosphatase U/L 23:32 [facility] Total Protein 8.1 6.4 - 8.2 01/12/2020 [facility] g/dl 23:32 [facility] Albumin 3.3 (L) 3.4 - 5.0 01/12/2020 [facility] g/dl 23:32 [facility] GLOBULIN - PMC 4.8 g/dl 01/12/2020 [facility] 23:32 [facility] ALBUMIN/GLOBULIN 0.6 01/12/2020 [facility] RATIO - PMC 23:32 [facility] Specimen Anatomical Collection Method Collection Time Receive d Time (Source) Location / / Volume Laterality 01/12/2020 22:30 01/12/2020 EST 23:03 [facility] Narrative [facility] - 01/12/2020 2 3:47 EST Sample collected at time of saline lock or IV placement. Jayesh Olguin MD CHEMISTRY & BLOOD GAS ORDERA BLES Performing Organization Address City/State/ZIP Code Phon e Number [facility] [address] [place] [address] (ABNORMAL) COMPLETE BLOOD COUNT AND DIFFERENTIAL (01/12/2020 22:30 EST) [facility] gist Method Time Signature WBC 5.5 4.0 - 10.5 01/12/2020 [facility] 10 3/uL 23:19 [facility] RBC 3.69 (L) 4.70 - 01/12/2020 [facility] 6.00 10 23:19 [facility] 6/uL [facility] LAB Hemoglobin 12.8 (L) 13.5 - 01/12/2020 [facility] 18.0 g/dL 23:19 [facility] HCT 35.3 (L) 42.0 - 01/12/2020 [facility] 52.0 % 23:19 [facility] MCV 95.7 78 - 100 01/12/2020 [facility] fL 23:19 [facility] MCH 34.7 (H) 27 - 31 pg 01/12/2020 [facility] 23:19 [facility] MCHC 36.3 (H) 32 - 36 01/12/2020 [facility] g/dL 23:19 [facility] RDW-CV - PMC 12.6 11.0 - 01/12/2020 [facility] 14.8 % 23:19 [facility] PLATELET COUNT - 182 150 - 450 01/12/2020 [facility] PMC 10 3/uL 23:19 [facility] NEUTROPHILS % 54.5 42.0 - 01/12/2020 [facility] (AUTO) - PMC 75.0 % 23:19 [facility] LYMPHOCYTES % 29.0 16.0 - 01/12/2020 [facility] (AUTO) - PMC 52.0 % 23:19 [facility] MONOCYTES % 12.6 (H) 1.0 - 11.0 01/12/2020 [facility] (AUTO) - PMC % 23:19 [facility] EOSINOPHILS % 2.4 0.0 - 7.0 01/12/2020 [facility] (AUTO) - PMC % 23:19 [facility] BASOPHILS % 1.1 0.0 - 4.0 01/12/2020 [facility] (AUTO) - PMC % 23:19 [facility] NUCLEATED RBC % 0.0 <1 % 01/12/2020 [facility] (AUTO) - PMC 23:19 [facility] NEUTROPHILS # 3.0 1.5 - 6.6 01/12/2020 [facility] (AUTO) - PMC 10 3/uL 23:19 [facility] LYMPHOCYTES # 1.6 1.0 - 3.5 01/12/2020 [facility] (AUTO) - PMC 10 3/uL 23:19 [facility] MONOCYTES # 0.7 <1.0 10 01/12/2020 [facility] (AUTO) - PMC 3/uL 23:19 [facility] EOSINOPHILS # 0.1 <0.7 10 01/12/2020 [facility] (AUTO) - PMC 3/uL 23:19 [facility] BASOPHILS # 0.1 <0.1 10 01/12/2020 [facility] (AUTO) - PMC 3/uL 23:19 [facility] NUCLEATED RBC # 0.00 <1 10 3/uL 01/12/2020 [facility] (AUTO) - PMC 23:19 [facility] Specimen Anatomical Collection Method Collection Time Receive d Time (Source) Location / / Volume Laterality 01/12/2020 22:30 01/12/2020 EST 23:04 [facility] - 01/12/2020 2 3:35 EST Sample collected at time of saline lock or IV placement. Jayesh Olguin MD PACKAGES & DNA PROBE ORDERAB LES Performing Organization Address City/State/ZIP Code Phon e Number [facility] [address] [place] [address] documented in this encounter Visit Diagnoses Not on filedocumented in this encounter Care Teams Adjunct Faculty Mathematics Department Relationship Specialty Start Date End Date Katia Stone PA-C PCP - General 05/02/17 [address] [place] [phone] documented as of this encounter
--- OUTSIDE RECORDS SUMMARY | 2022-01-31 16:00 | XMS_ITS | Encounter Summary ---
:1950 Author Organization [facility] Address [address] [place] [address] Care Team Providers Name Role Phone Katia Stone PA-C Primary Care Provider Reason for Visit Reason Onset Date Comments Other 05/16/2020 EKG results Encounter Details Date Type Department Care Team Description 05/16/2020 Telephone [facility] Cat Sutherland RN Othe r (EKG results) Cardiothoracic Surgery - [address] [address] Social History Tobacco Use Types Packs/Day Years [...] Patient had an EKG in January 2020. [facility] to fax report to [phone]. EKG in Scans from [facility]. I have routed our PA Salvador Roca to see if he wants to repeat on DOSA. documented in this encounter Plan of Treatment Not on filedocumented as of this encounter Visit Diagnoses Not on filedocumented in this encounter Care Teams Club Director Relationship Specialty Start Date End Date Katia Stone, MINGO PCP - General 05/02/17 [address] [place] [phone] documented as of this encounter
--- OUTSIDE RECORDS SUMMARY | 2022-01-31 16:00 | XMS_ITS | Encounter Summary ---
:1950 Author Organization [facility] Address [address] [place] [address] Care Team Providers Name Role Phone Katia Stone PA-C Primary Care Provider Reason for Visit Reason Onset Date Comments Coordination Of Care 11/12/2019 Encounter Details Date Type Department Care Team Description 11/12/2019 Telephone [facility] Cardiology - Chaitanya Trevino RN [address] [place], [place] [address] Social History Tobacco Use [...] Message relayed to Dr. Rosenberg for review. Telephone Encounter - Belinda Falk RN - 11/12/2019 1036 EDT An from [employer] calling in to report that patient has had fallen 3 times yesterday. documented in this encounter Plan of Treatment Not on filedocumented as of this encounter Visit Diagnoses Not on filedocumented in this encounter Care Teams Peer Financial Counselor Relationship Specialty Start Date End Date Katia Stone, PABijalC PCP - General 05/02/17 [address] [place] [phone] documented as of this encounter
--- OUTSIDE RECORDS SUMMARY | 2022-01-31 16:00 | XMS_ITS | Encounter Summary ---
:1950 Author Organization [facility] Address [address] [place] [address] Care Team Providers Name Role Phone Katia Stone PA-C Primary Care Provider Encounter Details Date Type Department Care Team Description 06/12/2018 Historical Results [facility] - Giselle Stone, Only [facility] Lab [address] [place], [place] [phone] Social History Tobacco Use Types Packs/Day Years [...] CMP COMBO,FASTING - PMC (06/12/2018 16:46 EDT) athologist Signature Sodium 125 (L) 136 - 145 06/12/2018 [facility] 17:52 [facility] Potassium 5.0 3.5 - 5.1 06/12/2018 [facility] 17:52 [facility] Chloride 89 (L) 96 - 107 06/12/2018 [facility] 17:52 [facility] CO2 Total 28.7 21 - 32 06/12/2018 [facility] 17:52 [facility] Anion Gap 7.3 06/12/2018 [facility] 17:52 [facility] BUN 8 7 - 25 06/12/2018 [facility] 17:52 [facility] Creatinine 0.60 (L) 0.7 - 1.30 06/12/2018 [facility] 17:52 [facility] Estimated GFR >60 >60 06/12/2018 [facility] 17:59 [facility] Comment: EGFR UNITS: mL/min/1.73 m 2 CKD-EPI Equation used to calculate. Glucose 84 70 - 180 06/12/2018 17:52 [facility] Calcium 8.2 (L) 8.5 - 10.5 06/12/2018 17:52 T [facility] CALCIUM,CORRECTED - 8.7 8.5 - 10.5 06/12/2018 17:52 [facility] BILIRUBIN - [facility] 0.30 0.00 - 1.00 06/12/2018 17:52 T [facility] AST 39 (H) 15 - 37 06/12/2018 17:52 [facility] ALT 52 12 - 78 06/12/2018 17:52 [facility] Alkaline Phosphatase 93 46 - 116 06/12/2018 17:52 [facility] Total Protein 7.1 6.4 - 8.2 06/12/2018 17:52 EDT [facility] Albumin 3.4 3.4 - 5.0 06/12/2018 17:52 EDT [facility] GLOBULIN - PMC 3.7 06/12/2018 17:52 EDT [facility] ALBUMIN/GLOBULIN RATIO 0.9 06/12/2018 17:52 EDT [facility] Specimen Anatomical Collection Method Collection Time Receive d Time (Source) Location / / Volume Laterality 06/12/2018 16:46 06/12/2018 EDT 16:47 EDT Katia Stone PA-C CHEMISTRY & BLOOD GAS ORDERA BLES Performing Organization Address City/State/ZIP Code Phon e Number [facility] [address] [place] [address] [facility] documented in this encounter Visit Diagnoses Not on filedocumented in this encounter Care Teams Sole Skiver Relationship Specialty Start Date End Date Katia Stone PA-C PCP - General 05/02/[address] [facility] [place] [facility] [place] [phone] documented as of this encounter
--- OUTSIDE RECORDS SUMMARY | 2022-01-31 16:00 | XMS_ITS | Encounter Summary ---
:1950 Author Organization [facility] Address [address] [place] [address] Care Team Providers Name Role Phone Katia Stone PA-C Primary Care Provider Reason for Visit Reason Onset Date Comments Coordination Of Care 11/30/2019 Follow-up 12/02/2019 Follow-up 12/22/2019 Pacemaker Problem 12/23/2019 Encounter Details Date Type Department Care Team Description 11/30/2019 Telephone [facility]; Cardiology - Chaitanya Jasmine MD Follow-up; Follow-up; [address] Pacemaker Problem [place], [place] [id number] [place] [address] [place] [phone] Social History Tobacco Use Types Packs/Day [...] 1551 EDT See other message from 12/22. Telephone Encounter - Tony Tim - 12/23/2019 1317 EDT Patient calling back here to speak to someone about having the wire in his pacemaker fixed/replaced. Please call back to discuss. Telephone Encounter - Jada Ochoa - 12/22/2019 1522 EDT Patient is calling back to follow up. Please call back. Telephone Encounter - Vick Ziegler - 12/22/2019 1317 EDT Patient calling to follow up about broken wire on pace maker and is asking to speak with provider. Please call to discuss. Telephone Encounter - Tony Tim - 12/02/2019 0951 EDT Patient has not heard from Dr Rosenberg about the broken lead in his device and he really needs to haveit replaced. Please call back to consult. Telephone Encounter - Tony Tim - 11/30/2019 1539 [...] on filedocumented in this encounter Care Teams Rough Carpenter Relationship Specialty Start Date End Date Katia Stone, BELLAC PCP - General 05/02/[address] [place] [phone] documented as of this encounter
--- OUTSIDE RECORDS SUMMARY | 2022-01-31 16:00 | XMS_ITS | Encounter Summary ---
:1950 Author Organization [facility] Address [address] [place] [address] Care Team Providers Name Role Phone Katia [...] on filedocumented in this encounter Care Teams Grinder Operator Surface Tool Relationship Specialty Start Date End Date Katia Stone PA-C PCP - General 05/02/[address] [place] [phone] documented as of this encounter
--- OUTSIDE RECORDS SUMMARY | 2022-01-31 16:00 | XMS_ITS | Encounter Summary ---
:1950 Author Organization [facility] Address [address] [place] [address] Care Team Providers Name Role Phone Katia Stone PA-C Primary Care Provider Encounter Details Date Type Department Care Team Description 01/13/2020 Results Only [facility]- Jayesh Baldwin, [address] [place] [phone] (Wo rk) Social History Tobacco Use [...] encounter Results (ABNORMAL) SODIUM (01/13/2020 18:50 EST) P athologist Signature Sodium 122 (L) 136 - 145 01/13/2020 [facility] mEq/L 19:16 EST [facility]ENTER LAB Specimen Anatomical Collection Method Collection Time Receive d Time (Source) Location / / Volume Laterality 01/13/2020 18:50 01/13/2020 EST 18:52 EST Jayesh Olmos MD CHEMISTRY & BLOOD GAS ORDERA BLES Performing Organization Address [facility] Phon e Number [facility] [address] [place] [phone] (ABNORMAL) SODIUM (01/13/2020 13:12 EST) P athologist Signature Sodium 126 (L) 136 - 145 01/13/2020 [facility] mEq/L 13:32 EST [facility]ENTER LAB Specimen Anatomical Collection Method Collection Time Receive d Time (Source) Location / / Volume Laterality 01/13/2020 13:12 01/13/2020 EST 13:15 EST Jayesh Olmos MD CHEMISTRY & BLOOD GAS ORDERA BLES Performing Organization Address City/[facility] e Number [facility] [address] [place] [address] documented in this encounter Visit Diagnoses Not on filedocumented in this encounter Care Teams Mechanical Project Manager Relationship Specialty Start Date End Date Katia Stone PA-C PCP - General 05/02/[address] [place] [phone] documented as of this encounter
--- OUTSIDE RECORDS SUMMARY | 2022-01-31 16:00 | XMS_ITS | Encounter Summary ---
:1950 Author Organization [facility] Address [address] [place] [address] Care Team Providers Name Role Phone Katia Stone PA-C Primary Care Provider Encounter Details Date Type Department Care Team Description 01/15/2020 Results Only [facility] - [address], Provider, [facility] [address] [place], [place] [id number] Social History Tobacco Use Types Packs/Day Years [...] encounter Results (ABNORMAL) SODIUM (01/15/2020 0:18 EST) athologist Signature Sodium 124 (L) 136 - 145 01/15/2020 [facility] mEq/L 0:36 EST CENTER LAB Specimen Anatomical Collection Method Collection Time Receive d Time (Source) Location / / Volume Laterality 01/15/2020 0:18 01/15/2020 0 :20 EST EST Provider Unknown MD CHEMISTRY & BLOOD GAS ORDERA BLES Performing Organization Address City/State/ZIP Code Phon e Number [facility] [address] [place] [address] documented in this encounter Visit Diagnoses Not on filedocumented in this encounter Care Teams Technical Business Systems Analyst Relationship Specialty Start Date End Date Katia Stone PA-C PCP - General 05/02/17 [address] [place] [phone] documented as of this encounter
--- OUTSIDE RECORDS SUMMARY | 2022-01-31 16:00 | XMS_ITS | Encounter Summary ---
:1950 Author Organization [facility] Address [address] [place] [address] Care Team Providers Name Role Phone Katia Stone PA-C Primary Care Provider Encounter Details Date Type Department Care Team Description 08/13/2018 Historical Results [facility] - Giselle Stone, Only [facility] [address] [place], [place] [phone] Social History Tobacco Use Types Packs/Day Years [...] CMP COMBO,FASTING - PMC (08/13/2018 11:28 EDT) athologist Signature Sodium 125 (L) 136 - 145 08/13/2018 [facility] 12:52 [facility] Potassium 4.9 3.5 - 5.1 08/13/2018 [facility] 12:52 [facility] Chloride 91 (L) 96 - 107 08/13/2018 [facility] 12:52 [facility] CO2 Total 25.4 21 - 32 08/13/2018 [facility] 12:52 [facility] Anion Gap 8.6 08/13/2018 [facility] 12:52 [facility] BUN 7 7 - 25 08/13/2018 [facility] 12:52 [facility] Creatinine 0.59 (L) 0.7 - 1.30 08/13/2018 [facility] 12:52 [facility] Estimated GFR >60 >60 08/13/2018 [facility] 12:53 [facility] Comment: EGFR UNITS: mL/min/1.73 m 2 CKD-EPI Equation used to calculate. Glucose 88 FASTIN-99 08/13/2018 12:52 [facility] Calcium 8.1 (L) 8.5 - 10.5 08/13/2018 12:[address] [facility] CALCIUM,CORRECTED - 8.7 8.5 - 10.5 08/13/2018 12:52 [facility] BILIRUBIN - [facility] 0.20 0.00 - 1.00 08/13/2018 12:52 T [facility] AST 40 (H) 15 - 37 08/13/2018 12:52 T [facility] [place] ALT 45 12 - 78 08/13/2018 12:52 [facility] Alkaline Phosphatase 112 46 - 116 08/13/2018 12:52 [facility] Total Protein 7.1 6.4 - 8.2 08/13/2018 12:52 EDT [facility] Albumin 3.2 (L) 3.4 - 5.0 08/13/2018 12:52 EDT [facility] GLOBULIN - PMC 3.9 08/13/2018 12:52 EDT [facility] ALBUMIN/GLOBULIN RATIO 0.8 08/13/2018 12:52 EDT [facility] Specimen Anatomical Collection Method Collection Time Receive d Time (Source) Location / / Volume Laterality 08/13/2018 11:28 08/13/2018 EDT 11:37 EDT Katia Stone PA-C CHEMISTRY & BLOOD GAS ORDERA BLES Performing Organization Address City/State/ZIP Code Phon e Number [facility] [address] [place] [address] [facility] documented in this encounter Visit Diagnoses Not on filedocumented in this encounter Care Teams Freight Car Repairer Relationship Specialty Start Date End Date Katia Stone PA-C PCP - General 05/02/[address] [place] [phone] documented as of this encounter
--- OUTSIDE RECORDS SUMMARY | 2022-01-31 16:00 | XMS_ITS | Encounter Summary ---
:1950 Author Organization [facility] Address [address] [place] [address] Care Team Providers Name Role Phone Katia Stone PA-C Primary Care Provider Reason for Visit Reason Onset Date Comments Appointment Related 02/07/2020 PA REQUEST Encounter Details Date Type Department Care Team Description 02/07/2020 Telephone [facility] - Shelley Reinoso MD Appointment Related ([facility] [address] REQUEST) Cardiology Clinic [place], [place] [address] [facility] [phone] [place], [place] [address] Social History Tobacco Use Types Packs/Day Years [...] EST MCR-NO PA REQUIRED NAVID-NO PA REQUIRED Telephone Encounter - Atruro Herrera - 02/07/2020 1327 EST PA REQUEST ECHOCARDIOGRAM [id number] 02/29/20 DYSPNEA (R06.0) VITA LIVE THANK YOU! documented in this encounter Plan of Treatment Not on filedocumented as of this encounter Visit Diagnoses Not on filedocumented in this encounter Care Teams Coal Trimmer Relationship Specialty Start Date End Date Katia Stone, PABijalC PCP - General 05/02/17 [address] [place] [phone] documented as of this encounter
--- OUTSIDE RECORDS SUMMARY | 2022-01-31 16:00 | XMS_ITS | Encounter Summary ---
:1950 Author Organization [facility] Address [address] [place] [address] Care Team Providers Name Role Phone Katia Stone PA-C Primary Care Provider Reason for Visit Reason Onset Date Comments Appointment Related 05/04/2020 Encounter Details Date Type Department Care Team Description 05/04/2020 Telephone [facility] Cherie Browne MD Appointment Related Cardiothoracic Surgery - [address] [place] [address], [address], [address] [place], [place] [address] [place] [address] [phone] (Wo rk) Social History Tobacco Use [...] - 05/10/2020 0953 EST Medical records from [facility] received, scanned and book marked for patient's appointment with Dr. Browne. Telephone Encounter - Melania Dumas - 05/04/2020 0857 EST Checking status of referral from Dr. Rosenberg to Dr. Browne. No referral noted in Epic from Dr. Rosenberg to Dr. Browne. Per conversation with Dr. Browne, he was not aware of this referral but is willing to see patient on 05/08/2020, at 10:30 am. Fax out to [facility] and [facility] to request patient's Discharge Summary from recent hospitalization, as well as diagnostic testing, EKG, labs, etc. Await response. documented in this encounter Plan of Treatment Not on filedocumented as of this encounter Visit Diagnoses Not on filedocumented in this encounter Care Teams Technology Training Associate Relationship Specialty Start Date End Date Katia Stone PA-C PCP - General 05/02/17 [address] [place] [phone] documented as of this encounter
--- OUTSIDE RECORDS SUMMARY | 2022-01-31 16:00 | XMS_ITS | Encounter Summary ---
:1950 Author Organization [facility] Address [address] [place] [address] Care Team Providers Name Role Phone Katia Stone PA-C Primary Care Provider Encounter Details Date Type Department Care Team Description 07/19/2018 Historical Results [facility] - Vick Limon, [place] [address] [place] [phone] Social History Tobacco Use Types Packs/Day [...] BLOOD COUNT AND DIFFERENTIAL (07/19/2018 18:30 EDT) [facility] gist Method Time Signature WBC 8.1 4.0 - 10.5 07/19/2018 [facility] 18:47 [facility] RBC 3.65 (L) 4.70 - 07/19/2018 [facility] 6.00 18:47 [facility] Hemoglobin 12.5 (L) 13.5 - 07/19/2018 [facility] 18.0 18:47 [facility] HCT 34.2 (L) 42.0 - 07/19/2018 [facility] 52.0 18:47 [facility] MCV 93.7 78 - 100 07/19/2018 [facility] 18:47 [facility] MCH 34.2 (H) 27 - 31 07/19/2018 [facility] 18:47 [facility] MCHC 36.5 (H) 32 - 36 07/19/2018 [facility] 18:47 [facility] RDW-CV - PMC 12.4 11.5 - 07/19/2018 [facility] 14.0 18:47 [facility] PLATELET COUNT - 158 150 - 450 07/19/2018 [facility] PMC 18:47 [facility] NEUTROPHILS % 63.5 42.0 - 07/19/2018 [facility] (AUTO) - PMC 75.0 18:47 [facility] LYMPHOCYTES % 22.6 16.0 - 07/19/2018 [facility] (AUTO) - PMC 52.0 18:47 [facility] MONOCYTES % 9.6 1.0 - 11.0 07/19/2018 [facility] (AUTO) - PMC 18:47 [facility] EOSINOPHILS % 2.9 0.0 - 7.0 07/19/2018 [facility] (AUTO) - PMC 18:47 [facility] BASOPHILS % 0.7 0.0 - 4.0 07/19/2018 [facility] (AUTO) - PMC 18:47 [facility] NUCLEATED RBC % 0.0 <1 07/19/2018 [facility] (AUTO) - PMC 18:47 [facility] NEUTROPHILS # 5.2 1.5 - 6.6 07/19/2018 [facility] (AUTO) - PMC 18:47 [facility] LYMPHOCYTES # 1.8 1.0 - 3.5 07/19/2018 [facility] (AUTO) - PMC 18:47 [facility] MONOCYTES # 0.8 <1.0 07/19/2018 [facility] (AUTO) - PMC 18:47 [facility] EOSINOPHILS # 0.2 <0.7 07/19/2018 [facility] (AUTO) - PMC 18:47 [facility] BASOPHILS # 0.1 <0.1 07/19/2018 [facility] (AUTO) - PMC 18:47 [facility] NUCLEATED RBC # 0.00 <1 07/19/2018 [facility] (AUTO) - PMC 18:47 [facility] Specimen Anatomical Collection Method Collection Time Receive d Time (Source) Location / / Volume Laterality 07/19/2018 18:30 07/19/2018 EDT 18:34 EDT Vick Limon MD PACKAGES & DNA PROBE ORDERAB LES Performing Organization Address City/State/ZIP Code Phon e Number [facility] [address] [place] [address] [facility] (ABNORMAL) BASIC METABOLIC PANEL,RANDOM - PMC (07/19/2018 18:30 EDT) P athologist Signature Sodium 120 (L) 136 - 145 07/19/2018 [facility] 18:52 [facility] Potassium 4.4 3.5 - 5.1 07/19/2018 [facility] 18:52 [facility] Chloride 83 (L) 96 - 107 07/19/2018 [facility] 18:52 [facility] CO2 Total 24.6 21 - 32 07/19/2018 [facility] 18:52 [facility] Anion Gap 13.4 07/19/2018 [facility] 18:52 [facility] BUN 8 7 - 25 07/19/2018 [facility] 18:52 [facility] Creatinine 0.67 (L) 0.7 - 1.30 07/19/2018 [facility] 18:52 [facility] Estimated GFR >60 >60 07/19/2018 [facility] 19:01 [facility] Comment: EGFR UNITS: mL/min/1.73 m 2 CKD-EPI Equation used to calculate. Glucose 78 70 - 180 07/19/2018 18:52 EDT [facility] [place] [facility] Calcium 8.2 (L) 8.5 - 10.5 07/19/2018 18:52 EDT [facility] Specimen Anatomical Collection Method Collection Time Receive d Time (Source) Location / / Volume Laterality 07/19/2018 18:30 07/19/2018 EDT 18:34 EDT Vick Limon MD CHEMISTRY & BLOOD GAS ORDERA BLES Performing Organization Address City/[facility]/ZIP Code Phon e Number [facility] [address] [place], [place] [id number] [place] [address] LAB POCT GLUCOSE (NURSING) - PMC (07/19/2018 18:21 EDT) P athologist Signature POC CAPILLARY 86 70 - 100 07/19/2018 [facility] GLUCOSE - PMC 18:23 EDT CENTER LAB Specimen Anatomical Collection Method Collection Time Receive d Time (Source) Location / / Volume Laterality 07/19/2018 18:21 07/19/2018 EDT 18:23 EDT Vick Limon MD POINT OF CARE TEST ORDERABLE S Performing Organization Address City/[facility]/ZIP Code Phon e Number [facility] [address] [place] [address] [facility] documented in this encounter Visit Diagnoses Not on filedocumented in this encounter Care Teams Line Lead Relationship Specialty Start Date End Date Katia Stone PA-C PCP - General 05/02/17 [address] [place] [phone] documented as of this encounter
--- OUTSIDE RECORDS SUMMARY | 2022-01-31 16:00 | XMS_ITS | Encounter Summary ---
:[address] 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, initial encounter José Miguel Roca PA-C Procedures XR CHEST 2 VIEWS [address] [phone] Referral ID Status Reason Start Expiration Visits Visits Date Date Requested Authorized [id number] Authorization Not 05/16/2020 1 1 Required Reason [...] Tony Rosenberg Marek, MD [place], MD 111 [facility] [address] [phone] Fax: Referral ID Status Reason Start Expiration Visits Visits Date Date Requested Authorized [id number] Authorization Not 1 1 Required Encounter Details Date Type Department Care Team Description 05/16/2020 Office Visit [facility] Ja Browne Displ acement of Cardiothoracic Surgery electrode lead of - [facility] [address] [facility] cardiac pacemaker, 111 [facility] [place] [address] Pavilion, Level 5 (Primary Dx) [phone] [place] [phone] Social History Tobacco Use Types Packs/Day Years [...] note were not included. Preoperative Instructions - Thoracic Surgery Patients Welcome to the Division of Cardiothoracic Surgery at the [facility]. We look forward to making your stay a safe, comfortable and pleasant experience. ??? Your surgery is scheduled on: To Be Announced ??? Please plan to arrive at: To Be Announced ??? When you arrive you should report to Registration on Level 3 (street level), located near the Main Entrance of the [facility] at the [facility]. Due to COVID, there is no visitation [...] of this appointmentplease contact our office at [phone]. We have included a local lodging list should you or your family require accommodations around the time of your surgery. Discounts may apply for family members of patients being hospitalized, please askthe hotel when booking. If you have cancer, you and your family member are eligible to stay at the [employer] [facility]. The Oncology Patient Navigator can be reached at [phone] for assistance with this. You should receive [...] days prior to your surgery. Stop Saw Ward 14 days prior to surgery. ??? Acetaminophen [...] IF THIS CHANGES, CALL OUR OFFICE AT [phone]. Continue to take all of your other [...] helpful. ??? Do not wear any nail marshallese, makeup, powder, lotion, deodorant or jewelry of [...] them with an appointment contact them at [phone] as the test MUST BE DONE 72 [...] to the Surgeon's office on Level 5 [facility] office. Note: If for some [...] listed below. The Division of Cardiothoracic Surgery [address] [place] [phone] (Toll Free) MD Geovanni Toure MD Marek Polomsky, MD Chris Rokkas, MD jes 10/2019 documented in this encounter Progress Notes Ja Browne MD - 05/16/2020 0930 EDT Cardiothoracic Surgery [...] file Gets together: Not on file Attends nondenominational service: Not on file Active member of [...] Thank you. Ja Browne MD Cardiothoracic Surgery [phone] (office) 05/16/2020 10:36 Cat Sutherland RN - 05/16/2020 0929 EDT Cardiac Surgery Nursing Pre-Operative Teaching ELECTIVES [...] questions as reviewed prn. P) As above documented in this encounter Miscellaneous Notes Addendum [...] redemonstrated. Procedure Note Zia Alberto MD - 05/16/2020Format ting of this [...] daily. added in this encounter Care Teams Public Affairs Director Relationship Specialty Start Date End Date Katia Stone PA-C PCP - General 05/02/17 [address] [place] [phone] documented as of this encounter
--- OUTSIDE RECORDS SUMMARY | 2022-01-31 16:00 | XMS_ITS | Encounter Summary ---
:1950 Author Organization [facility] Address [address] [place] [address] Care Team Providers Name Role Phone Katia Stone PA-C Primary Care Provider Encounter Details Date Type Department Care Team Description 05/28/[address] [facility] - Yi, Haja Only [facility] MD Raulito Radiology Results [address] [place], [place] [phone] Social History Tobacco Use Types Packs/Day [...] (ABNORMAL) BNP - PMC (05/28/2018 0:45 EDT) Analysis Performed At [facility] logist Time Signature B-TYPE 129 (H) <100 05/28/2018 [place] NATRIURETIC 1:18 EDT [facility] PMC [facility] LAB Specimen Anatomical Collection Method Collection Time Receive d Time (Source) Location / / Volume Laterality 05/28/2018 0:45 05/28/2018 0 :55 EDT EDT Haja Richmond MD CHEMISTRY & BLOOD GAS ORDERA BLES Performing Organization Address City/State/ZIP Code Phon e Number LAB [address] [place], [place] [id number] [place] [address] LAB (ABNORMAL) COMPLETE BLOOD COUNT AND DIFFERENTIAL (05/28/2018 0:45 EDT) [facility] gist Method Time Signature WBC 10.2 4.0 - 10.5 05/28/2018 [place] 0:59 [facility] LAB RBC 3.77 (L) 4.70 - 05/28/2018 [place] 6.00 0:59 [facility] LAB Hemoglobin 12.7 (L) 13.5 - 05/28/2018 [place] 18.0 0:59 [facility] LAB HCT 35.3 (L) 42.0 - 05/28/2018 [place] 52.0 0:59 [facility] LAB MCV 93.6 78 - 100 05/28/2018 [place] 0:59 [facility] LAB MCH 33.7 (H) 27 - 31 05/28/2018 [place] 0:59 [facility] LAB MCHC 36.0 32 - 36 05/28/2018 [place] 0:59 [facility] LAB RDW-CV - PMC 12.0 11.5 - 05/28/2018 [place] 14.0 0:59 [facility] LAB PLATELET COUNT - 306 150 - 450 05/28/2018 [place]TAS PMC 0:59 [facility] LAB NEUTROPHILS % 76.5 (H) 42.0 - 05/28/2018 [place] (AUTO) - PMC 75.0 0:59 [facility] LAB LYMPHOCYTES % 14.0 (L) 16.0 - 05/28/2018 [place] (AUTO) - PMC 52.0 0:59 [facility] LAB MONOCYTES % 7.9 1.0 - 11.0 05/28/2018 [place] (AUTO) - PMC 0:59 [facility] LAB EOSINOPHILS % 0.2 0.0 - 7.0 05/28/2018 [place] (AUTO) - PMC 0:59 [facility] LAB BASOPHILS % 0.2 0.0 - 4.0 05/28/2018 [place] (AUTO) - PMC 0:59 [facility] LAB NUCLEATED RBC % 0.0 <1 05/28/2018 [place] (AUTO) - PMC 0:59 [facility] LAB NEUTROPHILS # 7.8 (H) 1.5 - 6.6 05/28/2018 [place] (AUTO) - PMC 0:59 [facility] LAB LYMPHOCYTES # 1.4 1.0 - 3.5 05/28/2018 [place] (AUTO) - PMC 0:59 [facility] LAB MONOCYTES # 0.8 <1.0 05/28/2018 [place] (AUTO) - PMC 0:59 [facility] LAB EOSINOPHILS # 0.0 <0.7 05/28/2018 [place] (AUTO) - PMC 0:59 [facility] LAB BASOPHILS # 0.0 <0.1 05/28/2018 [place] (AUTO) - PMC 0:59 [facility] LAB NUCLEATED RBC # 0.00 <1 05/28/2018 [place] (AUTO) - PMC 0:59 [facility] LAB Specimen Anatomical Collection Method Collection Time Receive d Time (Source) Location / / Volume Laterality 05/28/2018 0:45 05/28/2018 0 :55 T EDT Haja Richmond MD PACKAGES & DNA PROBE ORDERAB LES Performing Organization Address City/[facility]/ZIP Code Phon e Number LAB [address] [place] [address] LAB TROPONIN I (05/28/2018 0:45 EDT) athologist Signature Troponin I <0.05 <0.10 05/28/2018 [facility] (ng/mL) 1:23 EDT CENTER LAB Comment: REFERENCE RANGE: Negative: ? <0.10 ng/mL Indeterminate: 0.10-0.80 ng/mL Positive: ? >0.80 ng/mL ........................................ ... The results of this assay can be falsely decreased due to the consumption of Biot in. Specimen Anatomical Collection Method Collection Time Receive d Time (Source) Location / / Volume Laterality 05/28/2018 0:45 05/28/2018 0 :56 EDT EDT Haja Richmond MD CHEMISTRY & BLOOD GAS ORDERA BLES Performing Organization Address City/[facility]/ZIP Code Phon e Number LAB [address] [place] [address] LAB (ABNORMAL) HEPATIC & CMP COMBO,FASTING - PMC (05/28/2018 0:45 EDT) athologist Signature Sodium 120 (L) 136 - 145 05/28/2018 [place] 1:21 [facility] LAB Potassium 4.0 3.5 - 5.1 05/28/2018 [place] 1:21 [facility] LAB Chloride 83 (L) 96 - 107 05/28/2018 [place] 1:21 [facility] LAB CO2 Total 25.9 21 - 32 05/28/2018 [place] 1:21 [facility] LAB Anion Gap 11.1 05/28/2018 [place] 1:21 [facility] LAB BUN 6 (L) 7 - 25 05/28/2018 [place] 1:21 [facility] LAB Creatinine 0.60 (L) 0.7 - 1.30 05/28/2018 [place] 1:21 [facility] LAB Estimated GFR >60 >60 05/28/2018 [place] 1:25 [facility] LAB Comment: EGFR UNITS: mL/min/1.73 m 2 CKD-EPI Equation used to calculate. Glucose 122 70 - 180 05/28/2018 1:21 EDT [facility] LAB Calcium 9.1 8.5 - 10.5 05/28/2018 1:21 EDT [facility] LAB CALCIUM,CORRECTED - PMC 9.8 8.5 - 10.5 05/28/2018 1:21 T LAB BILIRUBIN - PMC 0.30 0.00 - 1.00 05/28/2018 1:21 EDT [facility] LAB AST 90 (H) 15 - 37 05/28/2018 1:21 T [facility] LAB ALT 87 (H) 12 - 78 05/28/2018 1:21 T [facility] LAB Alkaline Phosphatase 89 46 - 116 05/28/2018 1:21 [facility] LAB Total Protein 8.3 (H) 6.4 - 8.2 05/28/2018 1:21 [facility] LAB Albumin 3.1 (L) 3.4 - 5.0 05/28/2018 1:21 [facility] LAB GLOBULIN - PMC 5.2 05/28/2018 1:21 [facility] LAB ALBUMIN/GLOBULIN RATIO 0.5 05/28/2018 1:21 E [facility] LAB Specimen Anatomical Collection Method Collection Time Receive d Time (Source) Location / / Volume Laterality 05/28/2018 0:45 05/28/2018 0 :56 EDT EDT Haja Richmond MD CHEMISTRY & BLOOD GAS ORDERA BLES Performing Organization Address City/State/ZIP Code Phon e Number LAB [address] [place] [address] LAB XR CHEST 2 VIEWS (05/28/2018 0:11 EDT) Anatomical Region Laterality Modality Other Specimen (Source) Anatomical Collection Method Collection Time Re ceived Time Location / / Volume Laterality 05/28/2018 0:11 EDT Narrative 05/28/2018 0:11 EDT [facility]: [facility] [address] [place], [place] [address] Diagnostic Imaging Report Signed Patient Name:DAVID FARFAN ? Date of :1950 ? MR Number:[id number] Age:67 ?Sex:M Category: CR ? Date of [...] ion. Report signed by: Alma Sherwood On ?? Dictated by: Alma Sherwood DO ? D/ 0011 Transcribed by: GABE ? D/T: E-Signed by: Alma Sherwood DO ? D/ 0212 Procedure Note Alma Sherwood MD - [facility] [address] [address] Diagnostic Imaging Report Signed Patient Name:DAVID FARFAN r:[id number] Date of :1950 MR Number:[id number] Age:67 Sex:M Category: CR Date of Exam:05/28/18 [...] E-Signed by: Alma Sherwood DO D/T: 0212 Haja Richmond MD IMG DIAGNOSTIC IMAGING ORDER IRWIN documented in this encounter Visit Diagnoses Not on filedocumented in this encounter Care Teams Stock Driver Relationship Specialty Start Date End Date Katia Stone PA-C PCP - General 05/02/17 [address] [place] [phone] documented as of this encounter
--- OUTSIDE RECORDS SUMMARY | 2022-01-31 16:00 | XMS_ITS | Encounter Summary ---
:1950 Author Organization [facility] Address [address] [place] [address] Care Team Providers Name Role Phone Katia [...] on filedocumented in this encounter Care Teams Platform Material Handler Manager Relationship Specialty Start Date End Date Katia Stone PA-C PCP - General 05/02/[address] [place] [phone] documented as of this encounter
--- OUTSIDE RECORDS SUMMARY | 2022-01-31 16:00 | XMS_ITS | Encounter Summary ---
:1950 Author Organization [facility] Address [address] [place] [address] Care Team Providers Name Role Phone Katia Stone PA-C Primary Care Provider Encounter Details Date Type Department Care Team Description 01/17/2020 Results Only [facility]- Jayesh Baldwin, [address] [place] [phone] (Wo rk) Social History Tobacco Use [...] CORTISOL, S PMC TEMP (01/17/2020 7:50 EST) [facility] gist Method Time Signature Cortisol, S SEE COMMENTS 01/18/2020 [place] 17:25 EST [facility] LAB Comment: Test ?Result ?Flag ??Unit ?RefValue Cortisol, S ??AM Result ? 11 ?mcg/dL ??09-24 Test Performed by: [facility] [address] [place] [address] Youth Agent: Pierre Andersen M.D. Ph. D.; CLIA# [id number] Specimen Anatomical Collection Method Collection Time Receive d Time (Source) Location / / Volume Laterality 01/17/2020 7:50 01/17/2020 7 :51 EST EST Jayesh Olmos MD CHEMISTRY & BLOOD GAS ORDERA BLES Performing Organization Address City/State/ZIP Code Phon e Number [facility] LAB [address] [place] [address] (ABNORMAL) BASIC METABOLIC PANEL,RANDOM - PMC (01/17/2020 7:50 EST) athologist Signature Sodium 130 (L) 136 - 145 01/17/2020 [place] mEq/L 8:13 [facility] LAB Potassium 3.7 3.5 - 5.1 01/17/2020 [place] mEq/L 8:13 [facility] LAB Chloride 95 (L) 96 - 107 01/17/2020 [place] mEq/L 8:13 [facility] LAB CO2 Total 27.4 21 - 32 01/17/2020 [place] mEq/L 8:13 [facility] LAB Anion Gap 7.6 mEq/L 01/17/2020 [place] 8:13 [facility] LAB BUN 10 7 - 25 01/17/2020 [place] mg/dl 8:13 [facility] LAB Creatinine 0.62 (L) 0.70 - 01/17/2020 [place] 1.30 mg/dl 8:13 [facility] LAB Estimated GFR >60 >60 01/17/2020 [place] 8:18 [facility] LAB Comment: EGFR UNITS: mL/min/1.73 m 2 CKD-EPI Equation used to calculate. Glucose 91 70 - 180 mg/dl 01/17/2020 8:[address] [facility] LAB Calcium 8.4 (L) 8.5 - 10.1 mg/dl 01/17/2020 8:13 EST [facility] LAB Specimen Anatomical Collection Method Collection Time Receive d Time (Source) Location / / Volume Laterality 01/17/2020 7:50 01/17/2020 7 :51 EST EST Jayesh Olmos MD CHEMISTRY & BLOOD GAS ORDERA BLES Performing Organization Address City/State/ZIP Code Phon e Number [facility] LAB [address] [place] [address] documented in this encounter Visit Diagnoses Not on filedocumented in this encounter Care Teams Restaurant Cook Relationship Specialty Start Date End Date Katia Stone PA-C PCP - General 05/02/[address] [facility] [place] [phone] documented as of this encounter
--- OUTSIDE RECORDS SUMMARY | 2022-01-31 16:00 | XMS_ITS | Encounter Summary ---
:1950 Author Organization [facility] Address [address] [place] [address] Care Team Providers Name Role Phone Katia Stone PA-C Primary Care Provider Reason for Visit Reason Onset Date Comments Labs Only 05/11/2020 Encounter Details Date Type Department Care Team Description 05/11/2020 Telephone [facility] Ja Young MD Labs Only Care Surgery [address] [address] [address], [place] [phone] (Wo rk) Social History [...] reviewed this with the Radiology front office spec on ACC 3 that he would need to be taken to the lab on Level 2 following his chest x-ray. They did not take him. I will re-enter the orders for the CBC to have drawn at [facility] which is closest to the patient's home he states. I have routed our CT PACHECO Salvador STOUT to re-enter the Type and Screen/ x match order to be drawn in pre-op hold on the dosa. Pt made aware to go to [facility] to have the CBC drawn on 05/17 or 05/18. I confirmed with the Lab there that it's the CBC that needs to be drawn. Wet Process Miller Head verbalized understanding and no appt needed. Pt also verbalized understanding. Telephone Encounter - Doris Mera MA - 05/11/2020 0851 EST Spoke to Tim to confirm appt on 05/16/20 at 9;30 am , He is aware of visitor policy as well, will bein wheelchair . documented in this encounter Plan of Treatment Not on filedocumented as of this encounter Visit Diagnoses Not on filedocumented in this encounter Care Teams Edi Developer Relationship Specialty Start Date End Date Katia Stone PA-C PCP - General 05/02/[address] [place] [phone] documented as of this encounter
--- OUTSIDE RECORDS SUMMARY | 2022-01-31 16:00 | XMS_ITS | Encounter Summary ---
:1950 Author Organization [facility] Address [address] [place] [address] Care Team Providers Name Role Phone Katia Stone PA-C Primary Care Provider Encounter Details Date Type Department Care Team Description 01/16/2020 Results Only Imaging [facility] - Keith Olmos [facility] MD Jarad Radiology Results [address] [place] [phone] (Wo rk) Social History Tobacco Use Types [...] CT CHEST W CONTRAST (01/16/2020 13:19 EST) Anatomical Region Laterality Modality Chest Computed Tomography Specimen (Source) Anatomical Collection Method Collection Time Re ceived Time Location / / Volume Laterality 01/16/2020 13:19 EST Narrative 01/16/2020 13:19 EST ?[facility] [place] [facility] ?[address] ?[place], [place] [address] ?Diagnostic Imaging Report ? Signed ? Patient Name:ADOLPH,DAVID Martinez ? Date of :1950 ?MR Number:[id number] ? Age:69 ?Sex:M ? Category: CT ?Date of Exam:01/16/20 ? Procedure: CT: Thorax; with contrast ? Ordering Physician: Nickolas ([facility])Jayesh MD ?Patient ? CC: ?? Emeterio Wynne MD ?? Jayesh Olmos MD ([facility]) ?? Katia Mccallum ? PROCEDURE INFORMATION: ?? [...] regarding this report , please contact the [facility] Operations Center at [phone] ? Dictated by: Brenda Dixon MD ?D/ ?? 1319 ?? Transcribed by: SERGEY ?D/T: ? E-Signed by: Brenda Dixon MD ?D/ ?? 1528 ?? Procedure Note Brenda Dixon MD - 02/01/2020Forma tting of this note might be different from the original. [facility]: [address] [address] Diagnostic Imaging Report Signed Patient Name:DAVID FARFAN r:[id number] Date of :1950 MR Number:[id number] Age:69 Sex:M Category: CT Date of Exam:01/16/20 Procedure: CT: Thorax; with contrast Ac cession: [id number] Ordering Physician: Nickolas ([facility])Jayesh MD Patient CC: Emeterio Wynne MD, Michael MD ([facility]) Katia Mccallum PROCEDURE INFORMATION: Exam: CT Chest [...] regarding this report , please contact the [facility] Operations Center at [phone] Dictated by: Brenda Dixon MD D/T: 1319 Transcribed by: SERGEY D/T: E-Signed by: Brenda Dixon MD D/T: 1520 Jayesh Olmos MD IMG CT ORDERABLES XR CHEST 2 VIEWS (01/16/2020 9:51 EST) Anatomical Region Laterality Modality Computed Radiography Specimen (Source) Anatomical Collection Method Collection Time Re ceived Time Location / / Volume Laterality 01/16/2020 9:51 EST Narrative 01/16/2020 9:51 EST ?[facility] [place] [facility] ?[address] ?[place] [address] ?Diagnostic Imaging Report ? Signed ? Patient Name:DAVID FARFAN ? Date of :1950 ?MR Number:[id number] ? Age:69 ?Sex:M ? Category: CR ?Date of Exam:/15/20 ? Procedure: CR: Chest; Frontal/LAT views ? 923 ? Ordering Physician: Nickolas ([facility])Jayesh MD ?Patient ? CC: ?? Emeterio Wynne MD ?? Jayesh Olmos MD ([facility]) ?? Katia Mccallum ? PROCEDURE INFORMATION: ?? [...] on the right. ? Report signed by: Brneda Dixon On ??11:21:16 ?? For any questions regarding this report , please contact the [facility] Operations Center at [phone] ? Dictated by: Brenda Dixon MD ?D/ ?? 0951 ?? Transcribed by: SERGEY ?D/T: ? E-Signed by: Brenda Dixon MD ?D/ ?? 1121 ?? Procedure Note Brenda Dixon MD - 02/01/2020Forma tting of this note might be different from the original. [facility]: [place] [address] Diagnostic Imaging Report Signed Patient Name:DAVID FARFAN r:[id number] Date of :1950 MR Number:[id number] Age:69 Sex:M Category: CR Date of Exam:01/16/20 Procedure: CR: Chest; Frontal/LAT views 923 Ordering Physician: Nickolas ([facility])Jayesh MD Patient CC: Emeterio Wynne MD, Michael MD ([facility]) Katia Mccallum PROCEDURE INFORMATION: Exam: XR Chest, [...] regarding this report , please contact the [facility] Operations Center at [phone] Dictated by: Brenda Dixon MD D/T: 0951 Transcribed by: SERGEY D/T: E-Signed by: Brenda Dixon MD D/T: 1121 Jayesh Olmos MD IMG DIAGNOSTIC IMAGING ORDER IRWIN documented in this encounter Visit Diagnoses Not on filedocumented in this encounter Care Teams Mat Cutter Relationship Specialty Start Date End Date Katia Stone PA-C PCP - General 05/02/[address] [place] [phone] documented as of this encounter
--- OUTSIDE RECORDS SUMMARY | 2022-01-31 16:00 | XMS_ITS | Encounter Summary ---
:1950 Author Organization [facility] Address [address] [place] [address] Care Team Providers Name Role Phone Katia Stone PA-C Primary Care Provider Encounter Details Date Type Department Care Team Description 06/25/2018 Historical Results [facility] - Maicol Crespo MD Only [facility] [address] [facility],1ST FLOOR [address] [place], [place] [address] [place] [address] [phone] Social History Tobacco Use Types Packs/Day Years [...] Priority Date/Time Associated Diagnosis Comme nts CRISTO WELCH IGE - Routine 06/25/2018 18:50 Resu lts for this PMC EDT procedure are i n the results section. GREENLANDIC PLANTNICO, Routine 06/25/2018 18:50 Result s for this [...] WELCH IGE - PMC (06/25/2018 18:50 EDT) athologist Signature CRISTO WELCH, <0.35 06/29/2018 [facility] IGE - PMC 15:54 EDT CENTER LAB Comment: Class 0 (Negative <0.35) Test Performed by: [facility] [place], [place] [address] Specimen Anatomical Collection Method Collection Time Receive d Time (Source) Location / / Volume Laterality 06/25/2018 18:50 06/25/2018 EDT 18:56 EDT Leonard Crespo MD CHEMISTRY & BLOOD GAS ORDERA BLES Performing Organization Address City/State/ZIP Code Phon e Number [facility] [address] [place] [address] [facility] ENGLISH MAXWELL, IGE - PMC (06/25/2018 18:50 EDT) athologist Signature GREENLANDIC <0.35 06/29/2018 [facility] PLANTNICO, IGE 15:54 EDT CENTER LAB Comment: Class 0 (Negative <0.35) Test Performed by: [facility] [address] [place], [place] [address] Specimen Anatomical Collection Method Collection Time Receive d Time (Source) Location / / Volume Laterality 06/25/2018 18:50 06/25/2018 EDT 18:56 EDT Leonard Crespo MD CHEMISTRY & BLOOD GAS ORDERA BLES Performing Organization Address City/[facility]/ZIP Code Phon e Number [facility] [address] [place] [address] [facility] HOUSE DUST MITES/D.P., IGE - PMC (06/25/2018 18:50 EDT) athologist Signature HOUSE DUST <0.35 06/29/2018 [facility] MITES/D.P., IGE 15:54 EDT CENTER LAB - PMC Comment: Class 0 (Negative <0.35) Test Performed by: [facility] [address] [place], [place] [address] Specimen Anatomical Collection Method Collection Time Receive d Time (Source) Location / / Volume Laterality 06/25/2018 18:50 06/25/2018 EDT 18:56 EDT Leonard Crespo MD CHEMISTRY & BLOOD GAS ORDERA BLES Performing Organization Address [facility] Code Phon e Number [facility] [address] [place] [address] [facility],S - PMC (06/25/2018 18:50 EDT) athologist Signature ALTERNARIA <0.35 06/29/2018 [facility] TENUIS, IGE - 15:54 EDT CENTER LAB PMC Comment: Class 0 (Negative <0.35) CLAD - PMC <0.35 06/29/2018 15:[address] [facility] LAB Comment: Class 0 (Negative <0.35) HOUSE DUST MITE/D.F., IGE <0.35 06/29/2018 15:54 EDT [facility] LAB Comment: Class 0 (Negative <0.35) Test Performed by: [facility] [address] [place], [place] [address] CAT - PMC <0.35 06/29/2018 15:54 EDT [facility] Comment: Class 0 (Negative <0.35) DOG DANDER, IGE - PMC <0.35 06/29/2018 15:54 E DT [facility] LAB Comment: Class 0 (Negative <0.35) YAYA GRASS IGE - PMC <0.35 06/29/2018 15:54 ED T [facility] LAB Comment: Class 0 (Negative <0.35) LAMBS QUARTER, IGE - PMC <0.35 06/29/2018 15:5 4 EDT [facility] LAB Comment: Class 0 (Negative <0.35) OAK - PMC <0.35 06/29/2018 15:54 EDT [facility] Comment: Class 0 (Negative <0.35) RAGWEED, SHORT, IGE - PMC <0.35 06/29/2018 15:54 EDT [facility] LAB Comment: Class 0 (Negative <0.35) CONNER GRASS, IGE - PMC <0.35 06/29/2018 15:5 4 EDT [facility] LAB Comment: Class 0 (Negative <0.35) Specimen Anatomical Collection Method Collection Time Receive d Time (Source) Location / / Volume Laterality 06/25/2018 18:50 06/25/2018 EDT 18:56 EDT Leonard Crespo MD CHEMISTRY & BLOOD GAS ORDERA BLES Performing Organization Address City/State/ZIP Code Phon e Number [facility] [address] [place], [place] [id number] [place] [address] LAB (ABNORMAL) HEPATIC & CMP COMBO,FASTING - PMC (06/25/2018 18:50 EDT) P athologist Signature Sodium 130 (L) 136 - 145 06/25/2018 [facility] 19:38 EDT CENTER LAB Potassium 4.3 3.5 - 5.1 06/25/2018 [facility] 19:38 EDT CENTER LAB Chloride 93 (L) 96 - 107 06/25/2018 [facility] 19:38 EDT CENTER LAB CO2 Total 26.4 21 - 32 06/25/2018 [facility] 19:38 EDT CENTER LAB Anion Gap 10.6 06/25/2018 [facility] 19:38 EDT CENTER LAB BUN 15 7 - 25 06/25/2018 [facility] 19:38 EDT CENTER LAB Creatinine 0.86 0.7 - 1.30 06/25/2018 [facility] 19:38 EDT CENTER LAB Estimated GFR >60 >60 06/25/2018 [facility] 19:38 EDT CENTER LAB Comment: EGFR UNITS: mL/min/1.73 m 2 CKD-EPI Equation used to calculate. Glucose 89 FASTIN-99 06/25/2018 19:38 [facility] LAB Calcium 8.6 8.5 - 10.5 06/25/2018 19:[address] [facility] LAB CALCIUM,CORRECTED - 9.0 8.5 - 10.5 06/25/2018 19:38 [facility] LAB BILIRUBIN - PMC 0.30 0.00 - 1.00 06/25/2018 19:[address] [facility] LAB AST 55 (H) 15 - 37 06/25/2018 19:38 EDT [facility] LAB ALT 65 12 - 78 06/25/2018 19:38 [facility] LAB Alkaline Phosphatase 115 46 - 116 06/25/2018 19:38 [facility] LAB Total Protein 7.5 6.4 - 8.2 06/25/2018 19:38 [facility] LAB Albumin 3.5 3.4 - 5.0 06/25/2018 19:38 [facility] LAB GLOBULIN - PMC 4.0 06/25/2018 19:38 [facility] LAB ALBUMIN/GLOBULIN RATIO 0.8 06/25/2018 19:38 [facility] LAB Specimen Anatomical Collection Method Collection Time Receive d Time (Source) Location / / Volume Laterality 06/25/2018 18:50 06/25/2018 EDT 18:56 EDT Leonard Crespo MD CHEMISTRY & BLOOD GAS ORDERA BLES Performing Organization Address City/State/ZIP Code Phon e Number [facility] [address] [place] [address] [facility] documented in this encounter Visit Diagnoses Not on filedocumented in this encounter Care Teams Doctor Of Dental Medicine Relationship Specialty Start Date End Date Katia Stone PABijalC PCP - General 05/02/[address] [place] [phone] documented as of this encounter
--- OUTSIDE RECORDS SUMMARY | 2022-01-31 16:00 | XMS_ITS | Encounter Summary ---
:1950 Author Organization [facility] Address [address] [place] [id number] Care Team Providers Name Role Phone Katia Stone PA-C Primary Care Provider Reason for Visit Reason Onset Date Comments Follow-up 12/23/2019 TE 11/02 Encounter Details Date Type Department Care Team Description 12/23/2019 Telephone [facility] Tony Rosenberg Follow- up (TE 11/02) Cardiology - Chaitanya Jasmine MD [address] [place] [address] (Wo rk) Social History Tobacco [...] patient declined. Message forwarded to Dr. Rosenberg. Telephone Encounter - Whitney Young - 12/23/2019 2459 EDT Patient states that he is supposed to be having a lead replaced; please call as soon as possible documented in this encounter Plan of Treatment Not on filedocumented as of this encounter Visit Diagnoses Not on filedocumented in this encounter Care Teams Fire Sprinkler Fitter Relationship Specialty Start Date End Date Katia Stone PA-C PCP - General 05/02/17 [address] [place] [phone] documented as of this encounter
--- OUTSIDE RECORDS SUMMARY | 2022-01-31 16:00 | XMS_ITS | Encounter Summary ---
:1950 Author Organization [facility] Address [address] [place] [address] Care Team Providers Name Role Phone Katia Stone PA-C Primary Care Provider Encounter Details Date Type Department Care Team Description 01/16/2020 Results Only [facility] - [address], Provider, [facility] [address] [place], [place] [id number] Social History Tobacco Use Types Packs/Day Years [...] BASIC METABOLIC PANEL (BMP) (01/16/2020 7:07 EST) P athologist Signature Sodium 129 (L) 136 - 145 01/16/2020 [facility] mEq/L 7:26 [facility] Potassium 3.8 3.5 - 5.1 01/16/2020 [facility] mEq/L 7:26 [facility] Chloride 95 (L) 96 - 107 01/16/2020 [facility] mEq/L 7:26 [facility] CO2 Total 27.5 21 - 32 01/16/2020 [facility] mEq/L 7:26 [facility] Anion Gap 7.5 mEq/L 01/16/2020 [facility] 7:26 [facility] BUN 10 7 - 25 01/16/2020 [facility] mg/dl 7:26 [facility] Creatinine 0.64 (L) 0.70 - 01/16/2020 [facility] 1.30 mg/dl 7:26 [facility] Estimated GFR >60 >60 01/16/2020 [facility] 7:29 [facility] Comment: EGFR UNITS: mL/min/1.73 m 2 CKD-EPI Equation used to calculate. Glucose 91 74 - 106 mg/dl 01/16/2020 7:26 EST [facility] Calcium 8.4 (L) 8.5 - 10.1 mg/dl 01/16/2020 7:26 [facility] Specimen Anatomical Collection Method Collection Time Receive d Time (Source) Location / / Volume Laterality 01/16/2020 7:07 01/16/2020 7 :09 EST EST Provider Unknown MD CHEMISTRY & BLOOD GAS ORDERA BLES Performing Organization Address City/State/ZIP Code Phon e Number [facility] [address] [place] [address] documented in this encounter Visit Diagnoses Not on filedocumented in this encounter Care Teams Scientific Editor Relationship Specialty Start Date End Date Katia Stone PA-C PCP - General 05/02/[address] [place] [phone] documented as of this encounter
--- OUTSIDE RECORDS SUMMARY | 2022-01-31 16:00 | XMS_ITS | Encounter Summary ---
:1950 Author Organization [facility] Address [address] [place] [address] Care Team Providers Name Role Phone Katia Stone PA-C Primary Care Provider Encounter Details Date Type Department Care Team Description 01/14/2020 Results Only [facility]- Jayesh Baldwin, [address] [place] [phone] (Wo rk) Social History Tobacco Use [...] encounter Results (ABNORMAL) SODIUM (01/14/2020 19:10 EST) athologist Signature Sodium 124 (L) 136 - 145 01/14/2020 [facility] mEq/L 19:38 [facility] Specimen Anatomical Collection Method Collection Time Receive d Time (Source) Location / / Volume Laterality 01/14/2020 19:10 01/14/2020 EST 19:19 EST Jayesh Olmos MD CHEMISTRY & BLOOD GAS ORDERA BLES Performing Organization Address City/[facility]/ZIP Code Phon e Number [facility] [address] [place] [address] (ABNORMAL) SODIUM (01/14/2020 14:55 EST) athologist Signature Sodium 125 (L) 136 - 145 01/14/2020 [facility] mEq/L 15:17 EST [facility] Specimen Anatomical Collection Method Collection Time Receive d Time (Source) Location / / Volume Laterality 01/14/2020 14:55 01/14/2020 EST 14:59 EST Jayesh Olmos MD CHEMISTRY & BLOOD GAS ORDERA BLES Performing Organization Address City/[facility]/ZIP Code Phon e Number [facility] [address] [place] [address] (ABNORMAL) COMPLETE BLOOD COUNT (01/14/2020 5:30 EST) Analysis Performed At [facility] [place] logist Time Signature WBC 5.2 4.0 - 10.5 01/14/2020 [facility] 10 3/uL 6:25 EST [facility] RBC 3.29 (L) 4.70 - 01/14/2020 [facility] 6.00 10 6:25 EST [facility] 6/uL [facility] Hemoglobin 11.5 (L) 13.5 - 01/14/2020 [facility] 18.0 g/dL 6:25 [facility] HCT 31.5 (L) 42.0 - 01/14/2020 [facility] 52.0 % 6:25 [facility] MCV 95.7 78 - 100 01/14/2020 [facility] fL 6:25 [facility] MCH 35.0 (H) 27 - 31 pg 01/14/2020 [facility] 6:25 [facility] MCHC 36.5 (H) 32 - 36 01/14/2020 [facility] g/dL 6:25 [facility] RDW-CV - PMC 13.1 11.0 - 01/14/2020 [facility] 14.8 % 6:25 [facility] PLATELET COUNT 156 150 - 450 01/14/2020 [facility] - PMC 10 3/uL 6:25 [facility] Specimen Anatomical Collection Method Collection Time Receive d Time (Source) Location / / Volume Laterality 01/14/2020 5:30 01/14/2020 5 :54 EST EST Narrative [facility] - 01/14/2020 6 :37 EST [...] inaccurate results. (NCCLS Standards H3-A5, page 21) Jayesh Olmos MD HEMATOLOGY & PF4 ORDERABLES Performing Organization Address City/State/ZIP Code Phon e Number [facility] [address] [place] [address] MAGNESIUM (01/14/2020 5:30 EST) athologist Signature Magnesium 2.0 1.8 - 2.4 01/14/2020 [facility] mg/dl 6:30 [facility] Specimen Anatomical Collection Method Collection Time Receive d Time (Source) Location / / Volume Laterality 01/14/2020 5:30 01/14/2020 5 :54 EST EST Narrative [facility] - 01/14/2020 6 :33 EST [...] inaccurate results. (NCCLS Standards H3-A5, page 21) Jayesh Olmos MD CHEMISTRY & BLOOD GAS ORDERA BLES Performing Organization Address City/State/ZIP Code Phon e Number [facility] [address] [place] [address] (ABNORMAL) BASIC METABOLIC PANEL,RANDOM - PMC (01/14/2020 5:30 EST) athologist Signature Sodium 122 (L) 136 - 145 01/14/2020 [facility] mEq/L 6:30 EST [facility] Potassium 4.0 3.5 - 5.1 01/14/2020 [facility] mEq/L 6:30 [facility] Chloride 89 (L) 96 - 107 01/14/2020 [facility] mEq/L 6:30 [facility] CO2 Total 28.1 21 - 32 01/14/2020 [facility] mEq/L 6:30 [facility] Anion Gap 5.9 mEq/L 01/14/2020 [facility] 6:30 [facility] BUN 11 7 - 25 01/14/2020 [facility] mg/dl 6:30 [facility] Creatinine 0.71 0.70 - 01/14/2020 [facility] 1.30 mg/dl 6:30 [facility] Estimated GFR >60 >60 01/14/2020 [facility] 6:30 EST [facility] Comment: EGFR UNITS: mL/min/1.73 m 2 CKD-EPI Equation used to calculate. Glucose 101 70 - 180 mg/dl 01/14/2020 6:[address] [facility] Calcium 8.2 (L) 8.5 - 10.1 mg/dl 01/14/2020 6:30 EST [facility] Specimen Anatomical Collection Method Collection Time Receive d Time (Source) Location / / Volume Laterality 01/14/2020 5:30 01/14/2020 5 :54 EST EST Narrative [facility] - 01/14/2020 6 :33 EST [...] inaccurate results. (NCCLS Standards H3-A5, page 21) Jayesh Olmos MD CHEMISTRY & BLOOD GAS ORDERA BLES Performing Organization Address City/State/ZIP Code Phon e Number [facility] [address] [place] [address] documented in this encounter Visit Diagnoses Not on filedocumented in this encounter Care Teams Digital Content Specialist Relationship Specialty Start Date End Date Katia Stone, BELLAC PCP - General 05/02/17 [address] [place] [phone] documented as of this encounter
--- OUTSIDE RECORDS SUMMARY | 2022-01-31 16:00 | XMS_ITS | Encounter Summary ---
:1950 Author Organization [facility] Address [address] [place] [address] Care Team Providers Name Role Phone Katia Stone PA-C Primary Care Provider Reason for Visit Reason Onset Date Comments Other 05/19/2020 Encounter Details Date Type Department Care Team Description 05/19/2020 Telephone [facility] Cherie Browne MD Other Cardiothoracic Surgery - [address] [place] [address], [address] [place], [place] [phone] [place] [address] [phone] (Wo rk) Social History Tobacco Use [...] CT Surgery Update Patient showed up at [facility] for his CBC and the dental laboratory technology teacher turned him away as the patient said I'll wait and have it done in [place] when I have the other blood test done. The other blood test needed is on the day of surgery for a Pre-Op Blood Draw (type and screen). I called the lab and spoke with idania Weeks and she will place a note in the system so that they don't turn him away again. I asked them to call our office at [phone] if there are any questions when the patient arrives. He must have the CBC prior to surgery. I called Nila the CM at his Proivder's office and reviewed above with her. She will call the patient as she works closely with him. P) CBC at [facility]. Call CT Surgery WHILE PATIENT IS THERE IF ANY QUESTIONS. Telephone Encounter - Alma Dhillon - 05/19/2020 1244 EDT Please call transplant case manager at PCP Office, [facility]. Patient went to [facility] to have pre-op blood draw, as he was directed. [facility] saw the order for blood bank draw, and would not draw any bloodwork for thepatient. documented in this encounter Plan of Treatment Not on filedocumented as of this encounter Visit Diagnoses Not on filedocumented in this encounter Care Teams Honey Processor Relationship Specialty Start Date End Date Katia Stone, BELLAC PCP - General 05/02/[address] [place] [phone] documented as of this encounter
--- OUTSIDE RECORDS SUMMARY | 2022-01-31 16:00 | XMS_ITS | Encounter Summary ---
:1950 Author Organization [facility] Address [address] [place] [address] Care Team Providers Name Role Phone Katia Stone PA-C Primary Care Provider Encounter Details Date Type Department Care Team Description 12/12/[address] [facility] - Candelaria Vila MD [facility] [id number] [place] [address], [place] [phone] (Wo rk) Social History Tobacco [...] BLOOD COUNT AND DIFFERENTIAL (12/12/2018 22:15 EDT) [facility] gist Method Time Signature WBC 10.1 4.0 - 10.5 12/12/2018 [facility] 10 3/uL 22:21 [facility] RBC 3.85 (L) 4.70 - 12/12/2018 [facility] 6.00 10 22:21 [facility] 6/uL [facility] Hemoglobin 13.1 (L) 13.5 - 12/12/2018 [facility] 18.0 g/dL 22:21 [facility] HCT 36.1 (L) 42.0 - 12/12/2018 [facility] 52.0 % 22:21 [facility] MCV 93.8 78 - 100 12/12/2018 [facility] fL 22:21 [facility] MCH 34.0 (H) 27 - 31 pg 12/12/2018 [facility] 22:21 [facility] MCHC 36.3 (H) 32 - 36 12/12/2018 [facility] g/dL 22:21 [facility] RDW-CV - PMC 11.9 11.5 - 12/12/2018 [facility] 14.0 % 22:21 [facility] PLATELET COUNT - 208 150 - 450 12/12/2018 [facility] PMC 10 3/uL 22:21 [facility] NEUTROPHILS % 52.5 42.0 - 12/12/2018 [facility] (AUTO) - PMC 75.0 % 22:21 [facility] LYMPHOCYTES % 32.3 16.0 - 12/12/2018 [facility] (AUTO) - PMC 52.0 % 22:21 [facility] MONOCYTES % 7.8 1.0 - 11.0 12/12/2018 [facility] (AUTO) - PMC % 22:21 [facility] EOSINOPHILS % 5.5 0.0 - 7.0 12/12/2018 [facility] (AUTO) - PMC % 22:21 [facility] BASOPHILS % 1.4 0.0 - 4.0 12/12/2018 [facility] (AUTO) - PMC % 22:21 [facility] NUCLEATED RBC % 0.0 <1 % 12/12/2018 [facility] (AUTO) - PMC 22:21 [facility] NEUTROPHILS # 5.3 1.5 - 6.6 12/12/2018 [facility] (AUTO) - PMC 10 3/uL 22:21 [facility] LYMPHOCYTES # 3.3 1.0 - 3.5 12/12/2018 [facility] (AUTO) - PMC 10 3/uL 22:21 [facility] MONOCYTES # 0.8 <1.0 10 12/12/2018 [facility] (AUTO) - PMC 3/uL 22:21 [facility] EOSINOPHILS # 0.6 <0.7 10 12/12/2018 [facility] (AUTO) - PMC 3/uL 22:21 [facility] BASOPHILS # 0.1 <0.1 10 12/12/2018 [facility] (AUTO) - PMC 3/uL 22:21 [facility] NUCLEATED RBC # 0.00 <1 10 3/uL 12/12/2018 [facility] (AUTO) - PMC 22:21 [facility] Specimen Anatomical Collection Method Collection Time Receive d Time (Source) Location / / Volume Laterality 12/12/2018 22:15 12/12/2018 EDT 22:19 EDT Wang Vila MD PACKAGES & DNA PROBE ORDERAB LES Performing Organization Address City/State/ZIP Code Phon e Number [facility] [address] [place] [address] [facility] documented in this encounter Visit Diagnoses Not on filedocumented in this encounter Care Teams Line Assembler Relationship Specialty Start Date End Date Katia Stone PABijalC PCP - General 05/02/17 [address] [place] [phone] documented as of this encounter
--- OUTSIDE RECORDS SUMMARY | 2022-01-31 16:00 | XMS_ITS | Encounter Summary ---
:1950 Author Organization [facility] Address [address] [place] [address] Care Team Providers Name Role Phone Katia Stone PA-C Primary Care Provider Encounter Details Date Type Department Care Team Description 01/15/2020 Results Only [facility]- Jayesh Baldwin, [address] [place] [phone] (Wo rk) Social History Tobacco Use [...] encounter Results (ABNORMAL) MAGNESIUM (01/15/2020 6:16 EST) athologist Signature Magnesium 1.6 (L) 1.8 - 2.4 01/15/2020 [facility] mg/dl 7:55 [facility] Specimen Anatomical Collection Method Collection Time Receive d Time (Source) Location / / Volume Laterality 01/15/2020 6:16 01/15/2020 7 :24 EST EST Jayesh Olmos MD CHEMISTRY & BLOOD GAS ORDERA BLES Performing Organization Address City/State/ZIP Code Phon e Number [facility] [address] [place] [address] (ABNORMAL) HEPATIC & CMP COMBO,FASTING - PMC (01/15/2020 6:16 EST) athologist Signature Sodium 125 (L) 136 - 145 01/15/2020 [facility] mEq/L 7:55 [facility] Potassium 3.8 3.5 - 5.1 01/15/2020 [facility] mEq/L 7:55 [facility] Chloride 93 (L) 96 - 107 01/15/2020 [facility] mEq/L 7:55 [facility] CO2 Total 30.1 21 - 32 01/15/2020 [facility] mEq/L 7:55 [facility] Anion Gap 3.9 mEq/L 01/15/2020 [facility] 7:55 [facility] BUN 10 7 - 25 01/15/2020 [facility] mg/dl 7:55 [facility] Creatinine 0.67 (L) 0.70 - 01/15/2020 [facility] 1.30 mg/dl 7:55 [facility] Estimated GFR >60 >60 01/15/2020 [facility] 7:56 [facility] Comment: EGFR UNITS: mL/min/1.73 m 2 CKD-EPI Equation used to calculate. Glucose 92 74 - 106 mg/dl 01/15/2020 7:55 EST [facility] Calcium 8.2 (L) 8.5 - 10.1 01/15/2020 7:55 EST [facility] DICAL mg/dl [facility]ENTER [facility] CALCIUM,CORRECTED - 9.2 8.5 - 10.5 01/15/2020 7:55 EST [facility] PMC mg/dl [facility] BILIRUBIN - PMC 0.60 0.00 - 1.00 01/15/2020 7:55 EST [facility] mg/dl [facility] AST 46 (H) 15 - 37 U/L 01/15/2020 7:55 EST [facility] ALT 33 16 - 63 U/L 01/15/2020 7:55 [facility] Alkaline Phosphatase 82 46 - 116 U/L 01/15/2020 7:55 [facility] Total Protein 7.0 6.4 - 8.2 g/dl 01/15/2020 7:55 [facility] P [facility] Albumin 2.8 (L) 3.4 - 5.0 g/dl 01/15/2020 7:55 [facility] GLOBULIN - [facility] 4.2 g/dl 01/15/2020 7:55 [facility] ALBUMIN/GLOBULIN 0.6 01/15/2020 7:55 EST [facility]C [facility] Specimen Anatomical Collection Method Collection Time Receive d Time (Source) Location / / Volume Laterality 01/15/2020 6:16 01/15/2020 7 :24 EST EST Jayesh Olmos MD CHEMISTRY & BLOOD GAS ORDERA BLES Performing Organization Address City/State/ZIP Code Phon e Number [facility] [address] [place] [address] (ABNORMAL) COMPLETE BLOOD COUNT (01/15/2020 6:16 EST) Analysis Performed At Patho logist Time Signature WBC 4.4 4.0 - 10.5 01/15/2020 [facility] 10 3/uL 7:45 [facility] RBC 3.26 (L) 4.70 - 01/15/2020 [facility] 6.00 10 7:45 EST MEDICAL 6/uL [facility] Hemoglobin 11.3 (L) 13.5 - 01/15/2020 [facility] 18.0 g/dL 7:45 [facility] HCT 31.2 (L) 42.0 - 01/15/2020 [facility] 52.0 % 7:45 [facility] MCV 95.7 78 - 100 01/15/2020 [facility] fL 7:45 [facility] MCH 34.7 (H) 27 - 31 pg 01/15/2020 [facility] 7:45 [facility] MCHC 36.2 (H) 32 - 36 01/15/2020 [facility] g/dL 7:45 [facility] RDW-CV - PMC 12.8 11.0 - 01/15/2020 [facility] 14.8 % 7:45 [facility] PLATELET COUNT 163 150 - 450 01/15/2020 [facility] - PMC 10 3/uL 7:45 [facility] Specimen Anatomical Collection Method Collection Time Receive d Time (Source) Location / / Volume Laterality 01/15/2020 6:16 01/15/2020 7 :24 [facility] Jayesh Olmos MD HEMATOLOGY & PF4 ORDERABLES Performing Organization Address City/State/ZIP Code Phon e Number [facility] [address] [place] [address] documented in this encounter Visit Diagnoses Not on filedocumented in this encounter Care Teams Rock Crusher Operator Relationship Specialty Start Date End Date Katia Stone PABijalC PCP - General 05/02/17 [address] [place], [place] [phone] documented as of this encounter
--- OUTSIDE RECORDS SUMMARY | 2022-01-31 16:00 | XMS_ITS | Encounter Summary ---
:1950 Author Organization [facility] Address [address] [place] [address] Care Team Providers Name Role Phone Katia Stone PA-C Primary Care Provider Encounter Details Date Type Department Care Team Description 01/13/2020 Results Only [facility] - [address], Provider, Medical Center Lab [facility] [address] [place], [place] [id number] Social History Tobacco Use Types Packs/Day Years [...] encounter Results (ABNORMAL) SODIUM (01/13/2020 21:50 EST) athologist Signature Sodium 120 (L) 136 - 145 01/13/2020 [facility] mEq/L 22:16 EST CENTER LAB Specimen Anatomical Collection Method Collection Time Receive d Time (Source) Location / / Volume Laterality 01/13/2020 21:50 01/13/2020 EST 21:55 EST Narrative [facility] - 01/13/2020 2 2:26 EST Sample collected by ED but method of collection (IV Start or venipuncture) not indicated on sample. Provider Unknown CHEMISTRY & BLOOD GAS ORDERA BLES Performing Organization Address City/[facility]/ZIP Code Phon e Number [facility] [address] [place] [address] TROPONIN I (01/13/2020 7:15 EST) athologist Signature Troponin I <0.050 0 - 0.056 01/13/2020 [facility] (ng/mL) ng/ml 7:52 EST CENTER LAB Comment: Interpretation: The cutoff for [...] (Source) Location / / Volume Laterality 01/13/2020 7:15 01/13/2020 7 :18 EST EST Narrative [facility] - 01/13/2020 7 :54 EST Sample collected from indwelling line by non-lab staff. Please Note: Obtaining blood specimens from indwelli ng lines or VADs may be a problem and a potential source of t est error because of incomplete flushing of collection site r esulting in contamination and/or dilution of the spe cimen contributing to inaccurate results. (NCCLS Standards H3-A5, page 21) Provider Unknown CHEMISTRY & BLOOD GAS ORDERA BLES Performing Organization Address City/[facility]/ZIP Code Phon e Number [facility] [address] [place] [address] (ABNORMAL) SODIUM (01/13/2020 7:15 EST) athologist Signature Sodium 120 (L) 136 - 145 01/13/2020 [facility] mEq/L 7:52 [facility] CENTER LAB Specimen Anatomical Collection Method Collection Time Receive d Time (Source) Location / / Volume Laterality 01/13/2020 7:15 01/13/2020 7 :18 EST EST [facility] LAB - 01/13/2020 7 :54 EST [...] inaccurate results. (NCCLS Standards H3-A5, page 21) Provider Unknown CHEMISTRY & BLOOD GAS ORDERA BLES Performing Organization Address City/State/ZIP Code Phon e Number [facility] [address] [place] [address] OSMOLALITY,S PMC TEMP (01/13/2020 5:42 EST) athologist Signature OSMOLALITY,S 280 275 - 295 01/14/2020 [facility] mOsm/kg 18:37 EST CENTER LAB Comment: Test Performed by: [place] [address] Pipeline Engineer: Pierre Andersen M.D. Ph. D.; CLIA# [id number] Specimen Anatomical Collection Method Collection Time Receive d Time (Source) Location / / Volume Laterality 01/13/2020 5:42 01/13/2020 5 :52 EST EST [facility] LAB - 01/14/2020 1 8:37 EST Sample collected by ED but method of collection (IV Start or venipuncture) not indicated on sample. Provider Unknown CHEMISTRY & BLOOD GAS ORDERA BLES Performing Organization Address City/State/ZIP Code Phon e Number [facility] [address] [place] [address] FOLATE (01/13/2020 5:42 EST) athologist Signature Folate 18.7 >8.6 ng/mL 01/13/2020 [facility] 7:43 EST CENTER LAB Specimen Anatomical Collection Method Collection Time Receive d Time (Source) Location / / Volume Laterality 01/13/2020 5:42 01/13/2020 5 :54 EST EST Provider Unknown CHEMISTRY & BLOOD GAS ORDERA BLES Performing Organization Address City/[facility]/ZIP Code Phon e Number [facility] [address] [place] [address] VITAMIN B12 (01/13/2020 5:42 EST) athologist Signature Vitamin B12 246 193 - 986 01/13/2020 [facility] pg/mL 7:43 [facility] CENTER LAB Comment: The results of this assay can be falsely elevated due to the consumption of Biotin. Specimen Anatomical Collection Method Collection Time Receive d Time (Source) Location / / Volume Laterality 01/13/2020 5:42 01/13/2020 5 :54 EST EST Provider Unknown CHEMISTRY & BLOOD GAS ORDERA BLES Performing Organization Address City/[facility]/ZIP Code Phon e Number [facility] [address] [place] [address] (ABNORMAL) IRON,TIBC,FERRITIN GROUP - PMC (01/13/2020 5:42 EST) [facility] Method Time Signature Iron 178 (H) 65 - 175 01/13/2020 [facility] mcg/dL 7:43 [facility] Iron Binding 193 (L) 250 - 450 01/13/2020 [facility] Capacity mcg/dL 7:43 [facility] PERCENT IRON 92 (H) 14 - 50 % 01/13/2020 [facility] SATURATION - 7:43 [facility] LAB Ferritin >1,000 (H) 26 - 388 01/13/2020 [facility] ng/mL 7:43 [facility] Specimen Anatomical Collection Method Collection Time Receive d Time (Source) Location / / Volume Laterality 01/13/2020 5:42 01/13/2020 5 :54 EST EST Provider Unknown CHEMISTRY & BLOOD GAS ORDERA BLES Performing Organization Address City/[facility]/ZIP Code Phon e Number [facility] [address] [place] [address] PROTIME (01/13/2020 5:42 EST) athologist Signature Pro Time 11.1 9.0 - 12.3 01/13/2020 [facility] SEC 6:47 [facility] CENTER LAB PROTHROMBIN TIME 1.1 0.8 - 1.2 01/13/2020 [facility] AL WITH INR - PMC RATIO 6:47 [facility] CENTER LAB Comment: Interpretive Information: Moderate Intensity Coumadin INR = 2.0-3. 0. Adjustments in anticoagulant therapy dos e should be based upon the INR and not the PT in seconds. The INR is used only on patients on stable oral anticoagulant therapy. It makes no significant contribution to the diagn osis or treatment of patients whose PT is prolonged for other reasons. Specimen Anatomical Collection Method Collection Time Receive d Time (Source) Location / / Volume Laterality 01/13/2020 5:42 01/13/2020 5 :55 EST EST Narrative [facility] - 01/13/2020 6 :48 EST Sample collected by ED but method of collection (IV Start or venipuncture) not indicated on sample. Provider Unknown HEMATOLOGY & PF4 ORDERABLES Performing Organization Address [facility] LAB [address] [place] [address] THYROID CASCADE (01/13/2020 5:42 EST) athologist Signature TSH 1.958 0.360 - 01/13/2020 [facility] 3.740 mIU/L 6:35 [facility] CENTER LAB Comment: Note: This is a Third Generation Assay ........................................ .. The results of this assay can be falsely decreased due to the consumption of Biot in. Specimen Anatomical Collection Method Collection Time Receive d Time (Source) Location / / Volume Laterality 01/13/2020 5:42 01/13/2020 5 :51 EST EST Narrative [facility] - 01/13/2020 6 :35 EST Sample collected by ED but method of collection (IV Start or venipuncture) not indicated on sample. Provider Unknown CHEMISTRY & BLOOD GAS ORDERA BLES Performing Organization Address [facility]/[employer] [facility] LAB [address] [place] [address] (ABNORMAL) MAGNESIUM (01/13/2020 5:42 EST) athologist Signature Magnesium 1.4 (L) 1.8 - 2.4 01/13/2020 [facility] mg/dl 6:35 [facility] C[facility] LAB Specimen Anatomical Collection Method Collection Time Receive d Time (Source) Location / / Volume Laterality 01/13/2020 5:42 01/13/2020 5 :51 EST EST Narrative [facility] - 01/13/2020 6 :35 EST Sample collected by ED but method of collection (IV Start or venipuncture) not indicated on sample. Provider Unknown CHEMISTRY & BLOOD GAS ORDERA BLES Performing Organization Address City/State/ZIP Code Phon e Number [facility] [address] [place] [address] (ABNORMAL) HEPATIC & CMP COMBO,FASTING - PMC (01/13/2020 5:42 EST) athologist Signature Sodium 121 (L) 136 - 145 01/13/2020 [facility] mEq/L 6:35 [facility] Potassium 4.1 3.5 - 5.1 01/13/2020 [facility] mEq/L 6:35 [facility] Chloride 87 (L) 96 - 107 01/13/2020 [facility] mEq/L 6:35 [facility] CO2 Total 25.5 21 - 32 01/13/2020 [facility] mEq/L 6:35 [facility] Anion Gap 8.5 mEq/L 01/13/2020 [facility] 6:35 [facility] BUN 4 (L) 7 - 25 01/13/2020 [facility] mg/dl 6:35 [facility] Creatinine 0.60 (L) 0.70 - 01/13/2020 [facility] 1.30 mg/dl 6:35 [facility] Estimated GFR >60 >60 01/13/2020 [facility] 6:35 [facility] Comment: EGFR UNITS: mL/min/1.73 m 2 CKD-EPI Equation used to calculate. Glucose 70 70 - 180 mg/dl 01/13/2020 6:35 [facility] R [facility] Calcium 7.9 (L) 8.5 - 10.1 01/13/2020 6:35 [facility] ME DICAL mg/dl CENTER LAB CALCIUM,CORRECTED - 8.9 8.5 - 10.5 01/13/2020 6:35 EST [facility] PMC mg/dl CENTER LAB BILIRUBIN - PMC 0.70 0.00 - 1.00 01/13/2020 6:35 EST [facility] mg/dl CENTER LAB AST 56 (H) 15 - 37 U/L 01/13/2020 6:35 EST [facility] ALT 38 16 - 63 U/L 01/13/2020 6:35 EST [facility] Alkaline Phosphatase 87 46 - 116 U/L 01/13/2020 6:35 EST [facility] Total Protein 6.8 6.4 - 8.2 g/dl 01/13/2020 6:35 EST [facility] Albumin 2.7 (L) 3.4 - 5.0 g/dl 01/13/2020 6:35 EST [facility] GLOBULIN - PMC 4.1 g/dl 01/13/2020 6:35 [facility] ALBUMIN/GLOBULIN 0.6 01/13/2020 6:35 EST [facility] - PMC CENTER LAB Specimen Anatomical Collection Method Collection Time Receive d Time (Source) Location / / Volume Laterality 01/13/2020 5:42 01/13/2020 5 :51 EST [facility] Narrative [facility] - 01/13/2020 6 :35 EST Sample collected by ED but method of collection (IV Start or venipuncture) not indicated on sample. Provider Unknown MD CHEMISTRY & BLOOD GAS ORDERA BLES Performing Organization Address City/State/ZIP Code Phon e Number [facility] [address] [place] [address] (ABNORMAL) COMPLETE BLOOD COUNT AND DIFFERENTIAL (01/13/2020 5:42 EST) [facility] gist Method Time Signature WBC 5.2 4.0 - 10.5 01/13/2020 [facility] 10 3/uL 6:17 [facility] RBC 3.24 (L) 4.70 - 01/13/2020 [facility] 6.00 10 6:17 [facility] MEDICAL 6/uL CENTER LAB Hemoglobin 11.3 (L) 13.5 - 01/13/2020 [facility] 18.0 g/dL 6:17 [facility] HCT 30.8 (L) 42.0 - 01/13/2020 [facility] 52.0 % 6:17 [facility] MCV 95.1 78 - 100 01/13/2020 [facility] fL 6:17 [facility] MCH 34.9 (H) 27 - 31 pg 01/13/2020 [facility] 6:17 [facility] MCHC 36.7 (H) 32 - 36 01/13/2020 [facility] g/dL 6:17 [facility] RDW-CV - PMC 12.5 11.0 - 01/13/2020 [facility] 14.8 % 6:17 [facility] PLATELET COUNT - 161 150 - 450 01/13/2020 [facility] PMC 10 3/uL 6:17 [facility] NEUTROPHILS % 52.1 42.0 - 01/13/2020 [facility] (AUTO) - PMC 75.0 % 6:17 [facility] LYMPHOCYTES % 30.5 16.0 - 01/13/2020 [facility] (AUTO) - PMC 52.0 % 6:17 [facility] MONOCYTES % 13.8 (H) 1.0 - 11.0 01/13/2020 [facility] (AUTO) - PMC % 6:17 [facility] EOSINOPHILS % 1.7 0.0 - 7.0 01/13/2020 [facility] (AUTO) - PMC % 6:17 [facility] BASOPHILS % 1.3 0.0 - 4.0 01/13/2020 [facility] (AUTO) - PMC % 6:17 [facility] NUCLEATED RBC % 0.0 <1 % 01/13/2020 [facility] (AUTO) - PMC 6:17 [facility] NEUTROPHILS # 2.7 1.5 - 6.6 01/13/2020 [facility] (AUTO) - PMC 10 3/uL 6:17 [facility] LYMPHOCYTES # 1.6 1.0 - 3.5 01/13/2020 [facility] (AUTO) - PMC 10 3/uL 6:17 [facility] MONOCYTES # 0.7 <1.0 10 01/13/2020 [facility] (AUTO) - PMC 3/uL 6:17 [facility] EOSINOPHILS # 0.1 <0.7 10 01/13/2020 [facility] (AUTO) - PMC 3/uL 6:17 [facility] BASOPHILS # 0.1 <0.1 10 01/13/2020 [facility] (AUTO) - PMC 3/uL 6:17 [facility] NUCLEATED RBC # 0.00 <1 10 3/uL 01/13/2020 [facility] (AUTO) - PMC 6:17 [facility] LAB Specimen Anatomical Collection Method Collection Time Receive d Time (Source) Location / / Volume Laterality 01/13/2020 5:42 01/13/2020 5 :55 [facility] LAB - 01/13/2020 6 :48 EST Sample collected by ED but method of collection (IV Start or venipuncture) not indicated on sample. Provider Unknown PACKAGES & DNA PROBE ORDERAB LES Performing Organization Address City/State/ZIP Code Phon e Number [facility] [address] [place] [address] OSMOLALITY, UR PMC TEMP (01/13/2020 1:57 EST) P athologist Signature Osmolality, Ur 239 150 - 1150 01/14/2020 [facility] mOsm/kg 18:37 EST CENTER LAB Comment: Test Performed by: [facility] [place] [address] Pipeline Engineer: Pierre Andersen M.D. Ph. D.; CLIA# [id number] Specimen Anatomical Collection Method Collection Time Receive d Time (Source) Location / / Volume Laterality 01/13/2020 1:57 01/13/2020 2 :14 EST EST Provider Unknown CHEMISTRY & BLOOD GAS ORDERA BLES Performing Organization Address City/[facility]/ZIP Code Phon e Number [facility] [address] [place] [address] UA MICROSCOPIC - PMC (01/13/2020 1:57 EST) [facility] Method Time Signature URINE RBC - PMC None Seen 0 - 2 hpf 01/13/2020 [facility] 3:06 [facility] URINE WBC - PMC None seen 0 - 3 hpf 01/13/2020 [facility] 3:06 [facility] URINE BACTERIA None Seen None Seen 01/13/2020 [facility] - PMC hpf 3:06 [facility] URINE MUCUS - None Seen lpf 01/13/2020 [facility] PMC 3:06 [facility] URINE SQUAMOUS None Seen None-Few 01/13/2020 [facility] EPITHELIAL CELL hpf 3:06 [facility] CENTER LAB Specimen Anatomical Collection Method Collection Time Receive d Time (Source) Location / / Volume Laterality 01/13/2020 1:57 01/13/2020 2 :15 EST EST [facility] LAB - 01/13/2020 3 :07 EST Clean Catch Provider Unknown CHEMISTRY & BLOOD GAS ORDERA BLES Performing Organization Address City/State/ZIP Code Phon e Number [facility] [address] [place] [address] TROPONIN I (01/13/2020 1:57 EST) athologist Signature Troponin I <0.050 0 - 0.056 01/13/2020 [facility] (ng/mL) ng/ml 2:42 EST CENTER LAB Comment: Interpretation: The cutoff for [...] (Source) Location / / Volume Laterality 01/13/2020 1:57 01/13/2020 2 :11 EST EST Provider Unknown CHEMISTRY & BLOOD GAS ORDERA BLES Performing Organization Address City/[facility]/ZIP Code Phon e Number [facility] [address] [place] [address] (ABNORMAL) SODIUM (01/13/2020 1:57 EST) athologist Signature Sodium 118 (CRIT 136 - 145 01/13/2020 [facility] LOW) mEq/L 2:59 EST CENTER LAB Comment: Results called and read back to me by: Location: Full name: LEV JOSHUA Credentials: RN at 0258 on 01/13/20 by TESS. Specimen Anatomical Collection Method Collection Time Receive d Time (Source) Location / / Volume Laterality 01/13/2020 1:57 01/13/2020 2 :11 EST EST Provider Unknown CHEMISTRY & BLOOD GAS ORDERA BLES Performing Organization Address City/State/ZIP Code Phon e Number [facility] [address] [place] [address] (ABNORMAL) BNP - PMC (01/13/2020 1:57 EST) Analysis Performed At Patho logist Time Signature B-TYPE 549 (H) <100 pg/mL 01/13/2020 [facility] 2:36 EST MEDICAL PEPTIDE - PMC CENTER LAB Specimen Anatomical Collection Method Collection Time Receive d Time (Source) Location / / Volume Laterality 01/13/2020 1:57 01/13/2020 2 :12 EST EST Provider Unknown MD CHEMISTRY & BLOOD GAS ORDERA BLES Performing Organization Address City/State/ZIP Code Phon e Number [facility] [address] [place] [address] (ABNORMAL) UA (CULTURE IF POSITIVE) - PMC (01/13/2020 1:57 EST) [facility] Method Time Signature URINE COLOR - Yellow Straw/Yelow 01/13/2020 [facility] PMC 2:26 [facility] URINE APPEARANCE Clear Clr/Hazy 01/13/2020 [facility] - PMC 2:26 [facility] URINE PH - PMC 6.0 5.0 - 9.0 01/13/2020 [facility] 2:26 [facility] UR SPECIFIC 1.006 1.001 - 01/13/2020 [facility] GRAVITY 1.035 2:40 [facility] (REFRACTOM) [facility] PMC URINE PROTEIN - Negative Negative 01/13/2020 [facility] PMC mg/dL 2:26 [facility] URINE GLUCOSE Negative Negative 01/13/2020 [facility] (UA) - PMC mg/dL 2:26 [facility] URINE KETONES - Trace (A) Negative 01/13/2020 [facility] PMC mg/dL 2:26 [facility] URINE BILIRUBIN Negative Negative 01/13/2020 [facility] - PMC 2:26 [facility] URINE BLOOD - Trace (A) Negative 01/13/2020 [facility] PMC 2:26 [facility] URINE 0.2 0.2 - 1.0 01/13/2020 [facility] UROBILINOGEN - E.U./dL 2:26 [facility] URINE NITRATE - Negative Negative 01/13/2020 [facility] PMC 2:26 [facility] URINE LEUKOCYTE Negative Negative 01/13/2020 [facility] ESTERASE - PMC 2:26 [facility] URINE CULTURE CRITERIA NOT 01/13/2020 [facility] COMMENTS - PMC MET 3:06 [facility] Comment: Specimen does not meet criteria for culture. Specimen Anatomical Collection Method Collection Time Receive d Time (Source) Location / / Volume Laterality 01/13/2020 1:57 01/13/2020 2 :15 EST [facility] Narrative [facility] - 01/13/2020 3 :07 EST Clean Catch Provider Unknown MICROBIOLOGY - GENERAL ORDER IRWIN Performing Organization Address City/State/ZIP Code Phon e Number [facility] [address] [place] [address] SODIUM, URINE RANDOM (01/13/2020 1:57 EST) athologist Signature Sodium, Urine 52 20 - 110 01/13/2020 [facility] mEq/L 2:35 EST CENTER LAB Specimen Anatomical Collection Method Collection Time Receive d Time (Source) Location / / Volume Laterality 01/13/2020 1:57 01/13/2020 2 :14 EST EST Provider Unknown MD URINALYSIS ORDERABLES Performing Organization Address City/State/ZIP Code Phon e Number [facility] [address] [place] [address] documented in this encounter Visit Diagnoses Not on filedocumented in this encounter Care Teams Production Or Plant Engineer Relationship Specialty Start Date End Date Katia Stone PABijalC PCP - General 05/02/17 [address] [place] [phone] documented as of this encounter
--- OUTSIDE RECORDS SUMMARY | 2022-01-31 16:00 | XMS_ITS | Encounter Summary ---
:1950 Author Organization [facility] Address [address] [place] [address] Care Team Providers Name Role Phone Katia Stone PA-C Primary Care Provider Reason for Visit Reason Onset Date Comments Confirmation 05/08/2020 Encounter Details Date Type Department Care Team Description 05/08/2020 Telephone [facility] Cherie Browne MD Confirmation Cardiothoracic Surgery - [address] [place] [address], [address], [address] [place], [place] [id number] [place] [address] [phone] (Wo rk) Social History Tobacco Use [...] 05/08/2020 1128 EST Spoke with [facility] [place] and confirmed patient's appointment with Dr. Browne for 05/16/2020 at 9:30 am. documented in this encounter Plan of Treatment Not on filedocumented as of this encounter Visit Diagnoses Not on filedocumented in this encounter Care Teams Electric Motor Analyst Relationship Specialty Start Date End Date Katia Stone, PABijalC PCP - General 05/02/[address] [place] [phone] documented as of this encounter
--- OUTSIDE RECORDS SUMMARY | 2022-01-31 16:00 | XMS_ITS | Encounter Summary ---
:1950 Author Organization [facility] Address [address] [place] [address] Care Team Providers Name Role Phone Katia Stone PA-C Primary Care Provider Reason for Visit Reason Onset Date Comments Pacemaker Problem 05/01/2020 Follow-up 05/03/2020 Encounter Details Date Type Department Care Team Description 05/01/2020 Telephone [facility] Tony Rsoenberg er Problem; Cardiology - Chaitanya Jasmine MD Follow-up [address] [place], [place] [address] [facility] [address] [place] [address] Social History Tobacco Use Types [...] 0909 EST Caller states that pt and family independence case manager do not understand what is going on with pt's care. From after-visit notes 04/12, it is clear to property underwriter that provider intends for pt to see Dr. Browne at [place].Caller, family independence case manager, and pt are unaware of a referral being sent to [place], and seem to think thatprovider is still following care. Please call pt and family independence case manager directly to let them know exactly what the plan of care is. Telephone Encounter - Brenda Bocanegra - 05/01/2020 1409 EST Spoke with Nila. We don't have much device information here as the patient is managed by [facility]. They are wanting follow up from Dr. Rosenberg regarding the next steps for pt's device care. Told them I wouldsee what I can do to help. Telephone Encounter - Haja Pavon - 05/01/2020 1304 EST Nila @ [facility] called to follow-up on pacemaker issues (problems with wires) and relay that the patient has felt a pounding around their pacemaker the last two nights. Please call. documented in this encounter Plan of Treatment Not on filedocumented as of this encounter Visit Diagnoses Not on filedocumented in this encounter Care Teams Sustainable Agriculture Specialist Relationship Specialty Start Date End Date Katia Stone, BELLAC PCP - General 05/02/[address] [place] [phone] documented as of this encounter
--- OUTSIDE RECORDS SUMMARY | 2022-01-31 16:00 | XMS_ITS | Encounter Summary ---
:1950 Author Organization [facility] Address [address] [place] [address] Care Team Providers Name Role Phone Katia Stone PA-C Primary Care Provider Encounter Details Date Type Department Care Team Description 06/18/2018 Historical Results [facility] - Giselle Stone, Only [facility] [address] [place], [place] [phone] Social History Tobacco Use Types Packs/Day Years [...] 12:14 Results fo r this COMBO,FASTING - PMC EDT procedur e are in the results section. documented in this encounter Results (ABNORMAL) HEPATIC & CMP COMBO,FASTING - [facility] (06/18/2018 12:14 EDT) athologist Signature Sodium 125 (L) 136 - 145 06/18/2018 [place] 13:02 [facility] Potassium 4.9 3.5 - 5.1 06/18/2018 [facility] 13:02 [facility] Chloride 88 (L) 96 - 107 06/18/2018 [facility] 13:02 [facility] CO2 Total 27.6 21 - 32 06/18/2018 [place] 13:02 [facility] Anion Gap 8.4 06/18/2018 [facility] 13:02 [facility] BUN 8 7 - 25 06/18/2018 [facility] 13:02 [facility] Creatinine 0.69 (L) 0.7 - 1.30 06/18/2018 [facility] 13:02 [facility] Estimated GFR >60 >60 06/18/2018 [facility] 13:03 [facility] Comment: EGFR UNITS: mL/min/1.73 m 2 CKD-EPI Equation used to calculate. Glucose 86 FASTIN-99 06/18/2018 13:02 [facility] Calcium 8.4 (L) 8.5 - 10.5 06/18/2018 13:02 [facility] CALCIUM,CORRECTED - 8.9 8.5 - 10.5 06/18/2018 13:02 [facility] LAB BILIRUBIN - [facility] 0.60 0.00 - 1.00 06/18/2018 13:02 [facility] AST 63 (H) 15 - 37 06/18/2018 13:02 [facility] [place] ALT 58 12 - 78 06/18/2018 13:02 [facility] Alkaline Phosphatase 94 46 - 116 06/18/2018 13:02 [facility] Total Protein 7.3 6.4 - 8.2 06/18/2018 13:02 EDT [facility] Albumin 3.4 3.4 - 5.0 06/18/2018 13:02 EDT [facility] GLOBULIN - PMC 3.9 06/18/2018 13:02 EDT [facility] ALBUMIN/GLOBULIN RATIO 0.8 06/18/2018 13:02 EDT [facility] Specimen Anatomical Collection Method Collection Time Receive d Time (Source) Location / / Volume Laterality 06/18/2018 12:14 06/18/2018 EDT 12:16 EDT Katia Stone PA-C CHEMISTRY & BLOOD GAS ORDERA BLES Performing Organization Address City/State/ZIP Code Phon e Number [facility] [address] [place] [address] [facility] documented in this encounter Visit Diagnoses Not on filedocumented in this encounter Care Teams Supervisor Garage Relationship Specialty Start Date End Date Katia Stone PA-C PCP - General 05/02/17 [address] [place] [phone] documented as of this encounter
--- OUTSIDE RECORDS SUMMARY | 2022-01-31 16:00 | XMS_ITS | Encounter Summary ---
:1950 Author Organization [facility] Address [address] [place] [address] Care Team Providers Name Role Phone Katia Stone PA-C Primary Care Provider Reason for Visit Reason Onset Date Comments Other 11/03/2019 pacemaker problem Encounter Details Date Type Department Care Team Description 11/03/2019 Telephone [facility] Tony Rosenberg Other ( pacemaker Cardiology - Chaitanya Jasmine MD problem) [address] [address] [place] [address] Social History Tobacco Use Types [...] steps to the process. Patient expressed understanding. Telephone Encounter - Belinda Falk RN - 11/04/2019 0913 EDT Call back to Nila relayed message from Dr. Rosenberg. Needs to be done at [facility] when we have the lead extraction program up and running. Will keep you posted. JW Nila expressed understanding, she mentioned patient is anxious and would like to have more information regarding next steps. Telephone Encounter - Marilyn Escoto - 11/03/2019 1017 EDT Spoke with Nila at [employer], she is wondering about update in regards to plan for lead revision. Nila asks for an update you can reach her at [phone] extension 7 Please advise Telephone Encounter - Jada Ochao - 11/03/2019 1015 EDT Patient's pacemaker has been shocking him. documented in this encounter Plan of Treatment Not on filedocumented as of this encounter Visit Diagnoses Not on filedocumented in this encounter Care Teams Steamfitter Supervisor Relationship Specialty Start Date End Date Katia Stone PA-C PCP - General 05/02/17 [address] [place] [phone] documented as of this encounter
--- OUTSIDE RECORDS SUMMARY | 2022-01-31 16:00 | XMS_ITS | Encounter Summary ---
:1950 Author Organization [facility] Address [address] [place] [address] Care Team Providers Name Role Phone Katia Stone PA-C Primary Care Provider Reason for Visit Reason Onset Date Comments Medication Questions 07/16/2017 Encounter Details Date Type Department Care Team Description 07/16/2017 Telephone [facility] Caitie Atwood, dication Questions Cardiology - Chaitanya MEDICAL DOSIMETRIST [address] [place] [address] (Wo rk) Social History Tobacco [...] Yessica expressed understanding and will complete refill. Telephone Encounter - Pily Rucker - 07/16/2017 1413 [...] on filedocumented in this encounter Care Teams Body Former Relationship Specialty Start Date End Date Katia Stone PA-C PCP - General 05/02/[address] [place] [phone] documented as of this encounter
--- OUTSIDE RECORDS SUMMARY | 2022-01-31 16:00 | XMS_ITS | Encounter Summary ---
:1950 Author Organization [facility] Address [address] [place] [address] Care Team Providers Name Role Phone Katia Stone PA-C Primary Care Provider Reason for Visit Reason Comments Pacemaker Problem Encounter Details Date Type Department Care Team Description 04/12/2020 Office Visit [facility] Tony Rosenberg Heart b [facility] Cardiology - Nicolasa Jasmine MD degree ([facility]) [address] (Primary Dx) [place] [address] [address] [place] [address] Social History Tobacco Use Types [...] EST [facility] CARDIOLOGY - [place] PROGRESS / FOLLOWUP NOTE - 04/12/2020 PROBLEM LIST 1. Third-degree heart block, status post dual chamber pacemaker insertion, complicated by pericardial effusion and need for 12-lead repositioning. 2. Hyponatremia. 3. RA lead failure. SUBJECTIVE: Mr Mera returns to the clinic at [facility] to discuss the issuessurrounding his pacemaker. The [...] has had 2 recent hospitalizations, one at [facility] and the other at [facility] [...] Tony Rosenberg MD / CD Dictation ID: [id number] cc: documented in this encounter Plan of Treatment Not on filedocumented as of this encounter Visit Diagnoses Diagnosis Heart block AV third degree (HCC-CMS) (H CC) - Primary Atrioventricular block, complete documented in this encounter Care Teams Certified Nursing Attendant Relationship Specialty Start Date End Date Katia Stone PA-C PCP - General 05/02/17 [address] [place] [phone] documented as of this encounter
--- OUTSIDE RECORDS SUMMARY | 2022-01-31 16:00 | XMS_ITS | Encounter Summary ---
:1950 Author Organization [facility] Address [address] [place] [address] Care Team Providers Name Role Phone Katia Stone PA-C Primary Care Provider Encounter Details Date Type Department Care Team Description 01/14/2020 Results Only [facility] - [address], Provider, Medical Center Lab [facility] [address] [place], [place] [id number] Social History Tobacco Use Types Packs/Day Years [...] this encounter Results PROTIME (01/14/2020 5:30 EST) athologist Signature Pro Time 11.2 9.0 - 12.3 01/14/2020 [facility] 6:26 EST CENTER LAB PROTHROMBIN TIME 1.1 0.8 - 1.2 01/14/2020 [facility] WITH INR - [facility] RATIO 6:26 EST CENTER LAB Comment: Interpretive Information: Moderate Intensity [...] 01/14/2020 5:30 01/14/2020 5 :54 EST EST [facility] - 01/14/2020 6 :37 EST [...] (NCCLS Standards H3-A5, page 21) Provider Unknown MD HEMATOLOGY & PF4 ORDERABLES Performing Organization Address City/State/ZIP Code Phon e Number LAB [address] [place] [address] (ABNORMAL) SODIUM (01/14/2020 2:07 EST) athologist Signature Sodium 121 (L) 136 - 145 01/14/2020 [facility] mEq/L 2:30 EST CENTER LAB Specimen Anatomical Collection Method Collection Time Receive d Time (Source) Location / / Volume Laterality 01/14/2020 2:07 01/14/2020 2 :13 EST EST Narrative LAB - 01/14/2020 2 :41 EST Sample collected from saline lock with discard per protocol by non-laboratory staff. Provider Unknown MD CHEMISTRY & BLOOD GAS ORDERA BLES Performing Organization Address City/State/ZIP Code Phon e Number LAB [address] [place] [address] documented in this encounter Visit Diagnoses Not on filedocumented in this encounter Care Teams Glass Deposition Tender Relationship Specialty Start Date End Date Katia Stone, [place] PCP - General 05/02/17 [address] [place] [phone] documented as of this encounter
--- OUTSIDE RECORDS SUMMARY | 2022-01-31 16:01 | XMS_ITS | Encounter Summary ---
:[address] [facility] Address [address] [place] [address] Care Team Providers Name Role Phone Katia Stone PA-C Primary Care Provider Reason for Referral Follow Up (3 - 10 Business Days) - New Request Specialty Diagnoses / Procedures Referred By Contact Refer red To Contact Diagnoses Hyponatremia Pericardial effusion Heart block Acute on chronic diastolic congestive heart failure (HCC-CMS) ([facility]) Acute pericarditis, unspecified type Vini Mathis MD Belden, Katelyn D, MINGO [address] [place] [address] [address], [place] [address] [place] [phone] Fax: Referral ID Status Reason Start Expiration Visits Visits Date Date Requested Authorized [id number] New Request Continuity of 05/27/2017 1 1 Care Question Answer Reason for Request: post hosp f/u visit Reason for Visit Reason Comments Chest Pain Patient arrives as transfer from [facility] for pleuritic chest pain and new diagnosis CHF after pacemaker placement at [facility] two weeks ago. Dyspnea with exertion, breat h sounds course crackles. Alert and oriented. Encounter Details Date Type Department Care Team Description 05/20/2017 - [facility] Laly [place] MD [address] [facility], [address] [place] [id number] Hyponatremia (Primary Dx); 05/27/2017 Encounter Cardiac/Telemetry Akash Reyes MD [address] [phone] Pericardial effusion; Anrdes Gayle MD [address] [phone] Heart block; [address] [place] [address] Tony Flores MD [address] [place] [address] Acute on chronic diastolic congestive he art failure (CMS-HCC) ([facility]); [place], [place] Seng Brody Sa, MD [address] [phone] Acute pericarditis, unspecified type [address] [...] amlodipine and chlorthalidone. ?? He presented to [facility] ED 05/20 with orthopnea and cough, and CT chest showed pericardial effusion. He was transferred to [facility] ED for pericardiocentesis. In the ED he [...] Component Value Units Date/Time Respiratory Virus Detection [[id number]] Collected: 05/26/17 1157 Lab Status: Preliminary result Specimen: Nasopharynx Updated: 05/27/17 1425 Result No RSV, Influenza A, or Influenza B detected by PCR Result No Metapneumovirus detected by PCR. Result Delay in some virus(es) result(s), testing being repeated and/or confirmed. Anaerobe Culture/Smear (inc. aerobes), Fluid [[id number]] Collected: 05/23/17 0747 Lab Status: Preliminary result Specimen: FOSMIC from Pericardial Fluid Updated: 05/25/17 1146 Gram Smear Result Few Polys No bacteria seen Result No growth Fungus Culture/Smear, Other [[id number]] Collected: 05/23/17 0747 Lab Status: Preliminary result [...] 05/01/2017 Discharge Follow Up Appointments Scheduled with [facility] Upcoming Appointments Jun 04, 2017 16:00 EDT Post Hospital Visit with Tony Rosenberg MD [facility] Cardiology [facility] (--) [address] [place] [phone] Appointments Outside of [facility] We Will Schedule Follow-up appointments and procedures Amb Consult/Follow Up Primary Care Physician Reason for Request: post hosp f/u visit Authorizing Provider: Vini Mathis MD Additional Information: Cardiology follow up FriJune 04, 2017 at [address] Justin Rosenberg at the [facility]. You should be notified of appointment time. If you do not head by FriJune 01, please call [phone] to find out the time. Cardiology follow up on June 16, 2017 at 2:[address] Torres at the [facility] has previously scheduled. Clinic number [phone] Studies We Will Schedule Follow-up labs and [...] Vini Mathis MD Internal Medicine PGY-1 Pager: [phone] 05/27/2017 20:52 Associated attestation - Seng Brody Sa, MD - 05/30/2017 1206 EDT Attending Attestation: I saw and evaluated the patient 05/27. I discussed the case with the resident/SAW TAILER/fellow and agree with the findings and plan as documented above. Seng person Sa, MD Cardiac Electrophysiology documented in this encounter Discharge Instructions AppointmentsHamceci-Coleen Gr NP - 05/27/2017 10:25 EDT Cardiology follow up FriJune 04, 2017 at [address] Justin Rosenberg at the [facility]. You should be notified of appointment time. If you do not head by FriJune 01, please call [phone] to find out the time. Cardiology follow up on June 16, 2017 at 2:[address] Torres at the [facility] has previously scheduled. Clinic number [phone] Discharge Instr - Other Melida Mas RN [...] through Care Everywhere. HEART FAILURE: AVOIDING TRIGGERS (BAHAMIAN)documented in this encounter Medications at Time of [...] Intake/Output Summary (Last 24 hours) at 05/26/17 0629 Last data filed at 05/26/17 0407 Gross [...] knees MSK: Normal bulk and tone. 5/5 hotbed transfer operator strength SKIN: No lesions, bruises, or rashes [...] initially hypertensive, but now normo-hypotensive. - Holding VEGETABLE CUTTER lisinopril ?? Chronic diastolic heart failure: Volume [...] 05/26/17. I discussed the case with the resident/SAW TAILER/fellow and agree with the findings and plan [...] because of pain RT Wayne 05/25/17 Gisella Christian - 05/25/2017 1300 EDT Cardiology Progress note [...] knees MSK: Normal bulk and tone. 5/5 hotbed transfer operator strength SKIN: No lesions, bruises, or rashes [...] initially hypertensive, but now normo-hypotensive. - Holding VEGETABLE CUTTER lisinopril ?? Chronic diastolic heart failure: currently volume overloaded. Needs diuresis, cautious in setting ofnormotension. - Holding Lasix/chlorthalidone - Torsemide 40 mg BID PO as above - Strict I&O - 1.5 L fluid restriction as above - Daily weights - Daily BUN, Cr VTE Prophylaxis Held d/t bloody pericentesis drain Discharge Plan Uncertain at this time Luciano Christian MD 05/25/17 Tony Rosenberg MD - 05/24/2017 1003 EDT Cardiology [...] knees MSK: Normal bulk and tone. 5/5 hotbed transfer operator strength SKIN: No lesions, bruises, or rashes [...] initially hypertensive, but now normo-hypotensive. - Holding VEGETABLE CUTTER lisinopril ?? Chronic diastolic heart failure: currently [...] Landry M.D., PGY-1 Internal Medicine Resident Pager [phone] 05/24/2017 10:04 Attestation statement: Supervising Physician I saw and examined Mr. Mera on Wednesday, May 24, 2017. I agree with the history, physical and the assessment plans as outlined above. Tony Rosenberg MD - 05/23/2017 0911 EDT Cardiology [...] knees MSK: Normal bulk and tone. 5/5 hotbed transfer operator strength SKIN: No lesions, bruises, or rashes [...] initially hypertensive, but now normo-hypotensive. - Holding VEGETABLE CUTTER lisinopril ?? Chronic diastolic heart failure: currently [...] Landry M.D., PGY-1 Internal Medicine Resident Pager [phone] 05/23/2017 9:11 Attestation statement: Supervising Physician. I saw and examined Mr. Mera on morning rounds with the cardiac electrophysiology service on May 23, 2017. I agree with the history, physical and the assessment plans as outlined above. Tony Rosenberg MD - 05/22/2017 0850 EDT Cardiology [...] knees MSK: Normal bulk and tone. 5/5 hotbed transfer operator strength SKIN: No lesions, bruises, or rashes [...] this interval not displayed. Coags: Recent Labs 05/21/17556 PROTIME 16.3* INR 1.4* LFTs: Recent Labs 05/21/17556 ALT 39 AST 33 ALKPHOS 81 TBIL [...] initially hypertensive, but now normo-hypotensive. - Holding VEGETABLE CUTTER lisinopril ?? Chronic diastolic heart failure: currently volume overloaded. Needs diuresis, cautious in setting ofnormotension. - Holding Lasix/chlorthalidone - Torsemide 10 mg PO as aobve - Strict I&O - 1.5 L fluid restriction as above - Daily weights - Daily BUN, Cr VTE Prophylaxis Held d/t bloody pericentesis drain Discharge Plan Uncertain at this time Jayne Landry M.D., PGY-1 Internal Medicine Resident Pager [phone] 05/22/2017 8:50 Attestation statement: I saw and examined the patient with the resident/fellow. I agree with the findings and plan of care documented in the resident's/fellow's note. Desi Villatoro RN - 05/21/2017 1312 EDT Initial Case [...] Chart: Yes, previous copy on file @ [facility] DIRECTIVES FOR FINANCES: TRANSPORTATION: Transportation: Family CULTURAL, DENOMINATIONAL and/or LANGUAGE factors affecting health care/discharge planning: [...] Device: None COMMUNITY RESOURCES/SUPPORTS: Primary Care Provider: aKtia Mccallum PCP Verified: Yes Specialists: Cardiology (Dr. Torres) Type of Home Health Services: None DME Provider: Pharmacy: [facility] - [address] - [place], [place] - [address] [place] [phone] [facility] - [place], [place] - [address] [facility] [address] [facility] [address] Home Health: Other: POST HOSPITAL TRANSITION PLAN: Plan d/c to his son, Catarina, house in [place] Desi Villatoro RN 05/21/2017 13:12 Desi Villatoro RN - 05/21/2017 0914 EDT 05/21: Met with patient. Dr. Rosenberg is at the bedside. Plan will be pericardiocentesis and reposition of pacer lead. I will follow up with patient later today. Desi Villatoro RN [id number] Jayne Landry MD - 05/21/2017 0734 EDT Cardiology Progress note Service Date: 05/21/2017 [...] 36.6 ??C (97.9 ??F) 97 % None 03/21/18 0001 - - - - - None [...] knees MSK: Normal bulk and tone. 5/5 hotbed transfer operator strength SKIN: No lesions, bruises, or rashes [...] will hold lisinopril for now. - Holding VEGETABLE CUTTER lisinopril ?? Chronic diastolic heart failure: currently volume overloaded. Needs diuresis after resolution of pericardial effusion. - Holding Lasix/chlorthalidone in setting of pericardial effusion - Strict I&O - 1.2 L fluid restriction as above - Daily weights - Daily BUN, Cr VTE Prophylaxis Held pending pericardiocentesis Discharge Plan Uncertain at this time Jayne Landry M.D., PGY-1 Internal Medicine Resident Pager [phone] 05/21/2017 8:01 Ester Dobbins MD - 05/21/2017 0640 EDT PATIENT CONSENT TO CARDIOVASCULAR CATHETERIZATION OR INTERVENTION: IEster MD, have explained the risks and benefits [...] 48 hours after theprocedure. Ester Dobbins MD Client Application Support Engineer PGY-5 05/20/2017 23:30 documented in this encounter [...] smoker, 1-2 beers 1-2x/week, lives alone in [place] Allergies: Reviewed No Known Allergies Exam: General [...] will hold lisinopril for now. - Holding VEGETABLE CUTTER lisinopril Chronic diastolic heart failure: with some [...] I performed this service on 05/21/17 Andres Luis MD documented in this encounter Procedure Notes Seng Rand [...] outpatient, avoid thiazide diuretics Vladimir [facility] Trans[facility] Supervisor Aircraft Cleaning Saw Filer of Transplant Programs 05/25/2017 11:46 Vladimir Crowe MD - 05/24/2017 1008 EDT NEPHROLOGY CONSULT [...] the assessment and plan. Vladimir Crowe MD [facility] Transplant Supervisor Aircraft Cleaning Saw Filer of Transplant Programs 05/24/2017 12:32 Elliot Fairchild MD - 05/23/2017 1520 EDT NEPHROLOGY [...] this hospitalization: ARTUR Fairchild MD 05/23/2017 15:20 Elliot Fairchild MD - 05/21/2017 1327 EDT NEPHROLOGY [...] above Stable weight: Procedures/Studies during this hospitalization: ECHO Elliot Fairchild MD 05/21/2017 13:27 documented in this encounter ED Notes Freddy Elizalde RN - 05/20/2017 2355 EDT ORDERS RECEIVED, NS UP INFUSING, URINE SAMPLE COLLECTED, SENT TO LAB, WAITING RESULTS Seng Deleon - 05/20/2017 2317 EDT Seng Bran, notified Dr. KIM of SODIUM 116 on 05/20/2017 at 23:17. Freddy Elizalde RN - 05/20/2017 2257 EDT REPORT RECEIVED FROM LILLIE WINSTON, WILL ASSUME CARE OF PT AT THIS TIME. PT IN ER ROOM 8, ON SAS ANALYST, NIBP, AND SPO2, ASSESSMENT NOTED, Tony Navarro - 05/20/2017 2247 EDT Blood drawn via saline lock per protocol, tiger tube(s) sent to lab per order. Laly Kim MD - 05/20/20174 EDT DOS: 05/20/2017 Chief Complaint Patient presents with ??? Chest Pain Patient arrives as transfer from [facility] for pleuritic chest pain and new diagnosis CHF after pacemaker placement at [facility] two weeks ago. Dyspnea with exertion, breath sounds course crackles.Alert and oriented. HPI HPI Comments: I, Deana Bingham, am scribing for Laly Kim, * while he/she is personally performing the service. Deana Hernándezsharla 05/20/2017 22:25 David Mera is a 66 y.o. male with a history of heart block AV third degree, HTN, acute on chronicCHF, who presents as a transfer from [place] with pericardial effusion. Pt had pacemaker placed [...] appears to be a good tracing. Attending concrete engineer not available for acute interpretation. Radiology orders: [...] for problems Not Given Final Accession number [id number] Final CREATININE, URINE RANDOM SODIUM, URINE RANDOM [...] of admission: 0 (). PCP: Katia Mccallum [facility] Number of Diagnoses or Management Options [...] discharge instructions and denied further questions. Rupert Ealr RN 05/27/2017 13:56 Plan of Care - Desi Villatoro RN - 05/27/2017 1024 EDT 05/27/17 1023 Medicare IM Notice: IM notice status Patient received notification verbally and in writing while in hospital. IM notice given at discharge? Yes Plan of Care - Rupert Earl RN - 05/26/2017 1332 [...] endorse SOB. Rupert Earl RN 05/26/2017 13:28 Plan of Care - Jaspal Grossman - 05/26/2017 1111 EDT Problem: Daily Care [...] and lung sounds. Jaspal Grossman 05/26/2017 10:59 Plan of Care - Omayra Farley RN [...] monitor Na. Omayra Farley RN 05/26/2017 5:49 Plan of Care - Rupert Earl RN [...] to monitor. Rupert Earl RN 05/25/2017 14:36 Plan of Care - Sigrid Gordon RN - 05/25/2017 0518 EDT Problem: Daily Care Plan Goals Goal: [...] will ctm. Sigrid Gordon RN 05/25/2017 5:26 Plan of Care - Cici Tapia RN - 05/24/2017 3468 EDT Problem: Daily Care Plan Goals Goal: [...] to monitor and assess per protocol. Cici Tpaia RN 05/24/2017 17:33 Plan of Care - Meena Lugo RN - [...] to monitor. MEENA LUGO RN 05/24/2017 0:43 Plan of Care - Pierre Serrano RN - [...] time allows. Pierre Serrano RN 05/23/2017 18:30 Plan of Care - Restrepo Irena - 05/23/2017 0954 EDT Problem: Daily Care [...] Patient paced in bedroom 20 ft. Irena Lauro 05/23/2017 9:47 Plan of Care - Meena Lugo RN - [...] to monitor. MEENA LUGO, TISH 05/23/2017 0:42 Plan of Care - Cici Oconnell - 05/22/2017 [...] orders, ctm assess vs, pericardial drain output Plan of Care - Rox Valdivia, TISH - 05/21/2017 3736 EDT Problem: Daily Care Plan Goals Goal: [...] to monitor. ROX VALDIVIA RN 05/21/2017 23:24 Plan of Care - Sara Erika - 05/21/2017 1059 EDT Problem: Daily Care Plan Goals Goal: Care Plan Documentation 05/21/17 0738 Care Plan Focus Area of Focus Respiratory Goal This Shift pt will use IS 5x per hour Data: Pt is 66 yo male admitted for increasing SOB and pleuritic chest pain. Transferred from [facility]. Dx of peridcardial effusion, HTN, [...] results section. documented in this encounter Results ECG REPORT - SCANNED (06/02/2017 8:40 EDT) Specimen (Source) Anatomical Collection Method Collection Time Re ceived Time Location / / Volume Laterality 06/02/2017 8:40 EDT Narrative This result has an attachment that is no t available. Scan 2 Pants Cutter PROCEDURE/MINOR SURGICAL ORD ERABLES ECG REPORT - SCANNED (06/01/2017 12:46 EDT) Specimen (Source) Anatomical Collection Method Collection Time Re ceived Time Location / / Volume Laterality 06/01/2017 12:46 EDT Narrative This result has an attachment that is no t available. Scan 2 Pants Cutter PROCEDURE/MINOR SURGICAL ORD ERABLES ECG REPORT - SCANNED (05/30/2017 11:59 EDT) Specimen (Source) Anatomical Collection Method Collection Time Re ceived Time Location / / Volume Laterality 05/30/2017 11:59 EDT Narrative This result has an attachment that is no t available. Scan 2 Pants Cutter PROCEDURE/MINOR SURGICAL ORD ERABLES ECG REPORT - SCANNED (05/30/2017 11:17 EDT) Specimen (Source) Anatomical Collection Method Collection Time Re ceived Time Location / / Volume Laterality 05/30/2017 11:17 EDT Narrative This result has an attachment that is no t available. Scan 2 Pants Cutter PROCEDURE/MINOR SURGICAL ORD ERABLES ECG REPORT - SCANNED (05/30/2017 11:17 EDT) Specimen (Source) Anatomical Collection Method Collection Time Re ceived Time Location / / Volume Laterality 05/30/2017 11:17 EDT Narrative This result has an attachment that is no t available. Scan 2 Pants Cutter PROCEDURE/MINOR SURGICAL ORD ERABLES ECG REPORT - SCANNED (05/28/2017 10:02 EDT) Specimen (Source) Anatomical Collection Method Collection Time Re ceived Time Location / / Volume Laterality 05/28/2017 10:02 EDT Narrative This result has an attachment that is no t available. Scan 2 Pants Cutter PROCEDURE/MINOR SURGICAL ORD ERABLES ECG REPORT - SCANNED (05/27/2017 13:22 EDT) Specimen (Source) Anatomical Collection Method Collection Time Re ceived Time Location / / Volume Laterality 05/27/2017 13:22 EDT Narrative This result has an attachment that is no t available. Scan 2 Pants Cutter PROCEDURE/MINOR SURGICAL ORD ERABLES EKG 12-LEAD (05/27/2017 7:37 EDT) Specimen (Source) Anatomical Collection Method Collection Time Re ceived Time Location / / Volume Laterality 05/27/2017 7:37 EDT Narrative [facility] EKG - 06/01/2017 12:4 1 EDT ? [facility] ? Test Date: ?2017-05-27 Pat Name: ? DAVID MERA ?Department: ?? [facility] ? Room: ? MW531 Gender: ? 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 [id number] : ?1950 ? Requested By: PRADIP MONET Order Number: [id number] ? Reading MD: ?? PIERRE RUBIO MD ? Measurements Intervals ?[place] ? Rate: ? 69 ? P: ?23 AK: ? 175 ?QRS: ?-58 QRSD: ? 193 [...] MD. Procedure Note Pierre Rubio MD - 06/01/2017Formatt ing of this note might be different from the original. [facility] r Test Date: 2017-05-27 Pat Name: DAVID MERA Department: [facility] Latasha Chao Room: [facility] Gender: M Hardwood Floor Refinisher: [id number] : 1950 Requested By: PRADIP MANNING Order Number: [id number] Martha MD: Irish RUBIO MD Measurements Intervals [place] Rate: 69 P: 23 AK: 175 QRS: -58 QRSD: 193 T: 189 QT: 528 QTc: 568 Interpretive Statements SINUS RHYTHM WITH ATRIAL TRACKING and VE NTRICULAR PACING Compared to ECG 05/26/2017 07:29:50 No significant changes I reviewed the tracing and have either a greed or edited the findings in this report. Electronically Signed On 8 12:41:22 EDT by PIERRE RUBIO MD. Maria Antonia Zimmerman MD CARDIAC ECG ORDERABLES Performing Organization Address City/State/ZIP Code Phon e Number [facility] EKG (ABNORMAL) ELECTROLYTES (05/27/2017 5:57 EDT) athologist Signature Sodium 129 (L) 136 - 145 05/27/2017 [facility] mEq/L 6:41 EDT [facility] Potassium 3.9 3.5 - 5.0 05/27/2017 [facility] mEq/L 6:41 EDT [facility] Chloride 87 (L) 96 - 110 05/27/2017 [facility] mEq/L 6:41 EDT [facility] CO2 33 (H) 22 - 32 05/27/2017 [facility] mEq/L 6:41 EDT [facility] Specimen Anatomical Collection Method Collection Time Receive d Time (Source) Location / / Volume Laterality Blood specimen BLOOD SPECIMEN / 05/27/2017 5:57 2017 6:14 (specimen) Unknown EDT EDT Jayne Pozo MD CHEMISTRY & BLOOD GAS ORDERA BLES Performing Organization Address City/State/ZIP Code Phon e Number [facility] LABORATORY [address] [place] [address] SERVICES BUN (05/27/2017 5:57 EDT) P athologist Signature BUN 13 10 - 05/27/2017 [facility] mg/dl 6:41 EDT [facility] Specimen Anatomical Collection Method Collection Time Receive d Time (Source) Location / / Volume Laterality Blood specimen BLOOD SPECIMEN / 05/27/2017 5:57 2017 6:14 (specimen) Unknown EDT EDT Jayne Pozo MD CHEMISTRY & BLOOD GAS ORDERA BLES Performing Organization Address City/State/ZIP Code Phon e Number [facility] LABORATORY [address] [place] [address] SERVICES MAGNESIUM (05/27/2017 5:57 EDT) P athologist Signature Magnesium 1.9 1.7 - 2.8 05/27/2017 [facility] mg/dl 6:41 EDT [facility] Specimen Anatomical Collection Method Collection Time Receive d Time (Source) Location / / Volume Laterality Blood specimen BLOOD SPECIMEN / 05/27/2017 5:57 2017 6:14 (specimen) Unknown EDT EDT Jayne Pozo MD CHEMISTRY & BLOOD GAS ORDERA BLES Performing Organization Address City/State/ZIP Code Phon e Number [facility] LABORATORY [address] [place] [address] SERVICES (ABNORMAL) CREATININE (05/27/2017 5:57 EDT) [facility] Method Time Signature Creatinine 0.63 (L) 0.66 - 05/27/2017 [facility] 1.25 mg/dl 6:41 EDT [facility]ENTER [facility] GFR, Calculated 103 >60 05/27/2017 [facility] ml/min/1.7 6:41 EDT CENTER 3m2 LABORATORY SERVICES Comment: eGFR calculated using CKD-EPI equation f or non Americans. Multiply eGFR by 1.16 for Americans. Specimen Anatomical Collection Method Collection Time Receive d Time (Source) Location / / Volume Laterality Blood specimen BLOOD SPECIMEN / 05/27/2017 5:57 2017 6:14 (specimen) Unknown EDT EDT Jayne Pozo MD CHEMISTRY & BLOOD GAS ORDERA BLES Performing Organization Address City/State/ZIP Code Phon e Number [facility]OR[facility]ORY [address] [place] [address] SERVICES (ABNORMAL) HEMAGRAM (05/27/2017 5:57 EDT) P athologist Signature WBC 6.74 4.0 - 10.4 05/27/2017 [facility] K/cmm 6:28 EDT [facility]ENTER [facility] RBC 3.43 (L) 4.36 - 05/27/2017 [facility] 5.78 M/cmm 6:28 EDT [facility] Hemoglobin 11.3 (L) 13.8 - 05/27/2017 [facility] 17.3 gm/dl 6:28 EDT [facility] HCT 32.2 (L) 39.5 - 05/27/2017 [facility] 50.2 % 6:28 EDT [facility] MCV 94 81 - 95 fl 05/27/2017 [facility] 6:28 EDT [facility] MCH 32.9 27.6 - 05/27/2017 [facility] 33.0 pg 6:28 EDT [facility] MCHC 35.1 32.8 - 05/27/2017 [facility] 36.4 gm/dl 6:28 EDT [facility] RDW-CV 11.3 <14.2 % 05/27/2017 [facility] 6:28 EDT [facility] RDW-SD 38.4 <46.0 fl 05/27/2017 [facility] 6:28 EDT [facility] PLT 308 141 - 377 05/27/2017 [facility] K/cmm 6:28 EDT [facility] MPV 10.4 9.5 - 12.7 05/27/2017 [facility] fl 6:28 EDT [facility] Specimen Anatomical Collection Method Collection Time Receive d Time (Source) Location / / Volume Laterality Blood specimen BLOOD SPECIMEN / 05/27/2017 5:57 2017 6:14 (specimen) Unknown EDT EDT Jayne Pozo MD HEMATOLOGY & PF4 ORDERABLES Performing Organization Address City/[facility]/ZIP [facility] Phon e Number [facility] [address] [place] [address] SERVICES (ABNORMAL) NT PRO BNP (05/26/2017 17:55 EDT) athologist Signature NT Pro BNP 2,710 (H) <300 pg/ml 05/26/2017 [facility] 18:55 EDT CENTER [facility] Comment: Slight hemolysis Results may be affected due to hemolysis . Reference Range: NT-proBNP values less than 300 pg/ml have a 99% negative predictive value for excluding acute congestive heart failure. A diagnostic NT-proBNP cutoff of 900 pg/ml has been suggested in adult s over 50 years of age in the absence of renal failure. A cutoff of 1200 pg/ml for patients with an eGFR <60 yields a diagnostic sensitivity and specificity of 89% and 72% for acute congestive failure. Specimen Anatomical Collection Method Collection Time Receive d Time (Source) Location / / Volume Laterality Blood specimen BLOOD SPECIMEN / 05/26/2017 17:55 05/26 (specimen) Unknown EDT 18:18 EDT Seng person Sa, MD CHEMISTRY & BLOOD GAS ORDERA BLES Performing Organization Address City/[facility]/ZIP Code Phon e Number [facility] [address] [place] [address] SERVICES (ABNORMAL) ELECTROLYTES (05/26/2017 17:55 EDT) athologist Signature Sodium 129 (L) 136 - 145 05/26/2017 [facility] mEq/L 18:44 EDT CENTER LABORATORY SERVICES Comment: Slight hemolysis Potassium 4.0 3.5 - 5.0 mEq/L 05/26/2017 18:44 EDT [facility] SERVICES Comment: Slight hemolysis Hemolysis may elevate potassium result. Chloride 84 (L) 96 - 110 mEq/L 05/26/2017 18:44 EDT [facility] SERVICES Comment: Slight hemolysis CO2 35 (H) 22 - 32 mEq/L 05/26/2017 18:[address] [facility] LABOR[facility] SERVICES Comment: Slight hemolysis Specimen Anatomical Collection Method Collection Time Receive d Time (Source) Location / / Volume Laterality Blood specimen BLOOD SPECIMEN / 05/26/2017 17:55 05/26 (specimen) Unknown EDT 18:18 EDT Jayne Pozo MD CHEMISTRY & BLOOD GAS ORDERA BLES Performing Organization Address City/State/ZIP Code Phon e Number [facility] [address] [place] [address] SERVICES INPATIENT ADD-ON (05/26/2017 15:20 EDT) [facility] Signature Tests to be BNP 05/26/2017 [facility] added 15:19 EDT [place] [id number] 05/26/2017 [facility] problems 15:32 [facility] Accession CALLED [id number] 05/26/2017 [facility] number WITH 15:32 EDT CENTER INABILITY TO LABORATORY PERFORM ADD SERVICES ON DUE TO NO SUITABLE SAMPLE [id number] JR Specimen Anatomical Collection Method Collection Time Receive d Time (Source) Location / / Volume Laterality OTHER / Unknown 05/26/2017 15:20 05/27/19 18 EDT 15:31 EDT Vini Mathis MD HEMATOLOGY & PF4 ORDERABLES Performing Organization Address City/[facility]/ZIP Code Phon e Number [facility] [address] [place] [address] SERVICES LEGIONELLA ANTIGEN DETECTION, URINE (05/26/2017 14:04 EDT) [facility] Method Time Signature Result No Legionella 05/26/2017 [facility] pneumophila 15:30 EDT CENTER serogroup 1 LABORATORY antigen SERVICES detected. Specimen Anatomical Collection Method Collection Time Receive d Time (Source) Location / / Volume Laterality Other (qualifier URINE / Unknown 05/26/2017 14:04 05/02 value) EDT 14:42 EDT Comment: Clean catch specimen Сергей Damico MD MICROBIOLOGY - GENERAL ORDER IRWIN Performing Organization Address City/State/ZIP Code Phon e Number [facility] [address] [place] [address] SERVICES STREPTOCOCCUS PNEUMONIAE ANTIGEN, URINE (05/26/2017 14:04 EDT) Patholo gist Method Time Signature Result No Strep 05/26/2017 [facility] pneumoniae 15:29 EDT CENTER antigen LABORATORY detected. SERVICES Specimen Anatomical Collection Method Collection Time Receive d Time (Source) Location / / Volume Laterality Other (qualifier URINE / Unknown 05/26/2017 14:04 0308/2017 value) EDT 14:42 EDT Comment: Clean catch specimen Сергей Damico MD MICROBIOLOGY - GENERAL ORDER IRWIN Performing Organization Address City/State/ZIP Code Phon e Number [facility] [address] [place] [address] SERVICES ECG REPORT - SCANNED (05/26/2017 12:53 EDT) Specimen (Source) Anatomical Collection Method Collection Time Re ceived Time Location / / Volume Laterality 05/26/2017 12:53 EDT Narrative This result has an attachment that is no t available. 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 Procedure Note Pablito Ayala MD - 05/26/2017Forma tting of this note might be different from the original. CHEST PA AND LATERAL 05/26/2017 12:30 PM [...] above interpretation and agree with the findings. Сергей Damico MD IMG DIAGNOSTIC IMAGING ORDER IRWIN BACTERIAL CULTURE/SMEAR, RESPIRATORY (05/26/2017 12:14 EDT) Component Value Ref Test Analysis Performed At [facility] Range Method Time Signature Gram Smear Mod 05/26/2017 [facility] Result Polys 14:30 EDT CENTER LABORATORY SERVICES Gram Smear Mod 05/26/2017 [facility] Result Squamous epithelial cells 14:30 EDT [facility] ER LABORATORY SERVICES Gram Smear Mod 05/26/2017 [facility] Result Mixed gram positive and gram negative organisms 14:30 [facility] CENTER LABORATORY SERVICES Gram Smear Smear suggests contamination with saliva. ??Please submit additional specimen if clinically 05/26/2017 [facility] Result indicated. 14:30 [facility] LABORATORY SERVICES Result See gram smear 05/26/2017 [facility] results. 14:30 EDT CENTER LABORATORY SERVICES Result Credit Issued 05/26/2017 [facility] 14:30 EDT CENTER LABORATORY SERVICES Specimen Anatomical Collection Method Collection Time Receive d Time (Source) Location / / Volume Laterality Other (qualifier SPUTUM / Unknown 05/26/2017 12:14 value) EDT 13:50 EDT Сергей Damico MD MICROBIOLOGY - GENERAL ORDER IRWIN Performing Organization Address City/[facility]/ZIP Code Phon e Number [facility] [address] [place] [address] SERVICES RESPIRATORY VIRUS DETECTION (05/26/2017 11:57 EDT) [facility] Method Time Signature Result No RSV, Influenza 05/28/2017 [facility] A, or Influenza B 14:18 EDT CENTER detected by PCR LABORATORY SERVICES Result No Metapneumovirus 05/28/2017 [facility] detected by PCR. 14:18 EDT CENTER LABORATORY SERVICES Result No Parainfluenza Virus Type 1,2 or 3 detected by PCR. This assay may have decrease sensitivity 05/28/2017 [facility] for Parainfluenza Virus Type 3. 14:18 ED T CENTER LABORATORY SERVICES Specimen Anatomical Location Collection Method Collection Time Received Time (Source) / Laterality / Volume ENTIRE NASOPHARYNX 05/26/2017 11:57 05/26 / Unknown EDT 12:19 EDT Сергей Damico MD MICROBIOLOGY - GENERAL ORDER IRWIN Performing Organization Address City/[facility] Code Phon e Number [facility] [address] [place] [address] SERVICES ECHOCARDIOGRAM LIMITED (05/26/2017 11:16 EDT) Anatomical Region Laterality Modality Other Specimen (Source) Anatomical Collection Method Collection Time Re ceived Time Location / / Volume Laterality 05/26/2017 11:16 EDT Narrative 05/26/2017 11:25 EDT *Interpreting Group:* *[facility] Cardiology* [address] [place] [address] Date of study: 05/26/2017 Transthoracic Echocardiography M-mode, [...] Rosenberg MD ORDERING ?Tony Rosenberg MD PERFORMING ??[facility], Ip REFERRING ?? Giselle Mccallumn Clark *PROCEDURE DATA* Procedure information: ??The patient was identified by two identifiers. This study was interpreted by [facility]. Pertinent images and digital data are archived for permanent storage and are available for subsequent review. ??Study status: Routine. Transthoracic echocardiography. ??M-mode, limited 2D, limited spectral Doppler, and color Doppler. A ransthoracic Echocardiogram was performed. Scanning was performed [...] 11:25 Procedure Note Bobby Andrade MD - 05/26/2017For matting of this note might be different from the original. *Interpreting Group:* *[facility]* [address] [place] [id number] Date of study: 05/26/2017 Transthoracic Echocardiography M-mode, [...] Rosenberg MD ORDERING Tony Rosenberg MD PERFORMING [facility], Ip REFERRING Katia Mccallum *PROCEDURE DATA* Procedure information: The patient was i dentified by two identifiers. This study was interpreted by [facility] etevlina [facility] Cardiology. Pertinent images and digital data are archived for permanent storage and are available for subsequent review. Study status: Routine. Transthoracic echocardiography. M-mode, limited 2D, limited spectral Doppler, and color Doppler. A T ransthoracic Echocardiogram was performed. Scanning was performed from he parasternal, apical, and subcostal acoustic windows. [...] signed by Bobby Andrade MD 05/26/2017 11:25 Tony Rosenberg MD CARDIAC ECHO ORDERABLES EKG 12-LEAD (05/26/2017 7:29 EDT) Specimen (Source) Anatomical Collection Method Collection Time Re ceived Time Location / / Volume Laterality 05/26/2017 7:29 EDT Narrative [facility] EKG - 05/27/2017 13:1 8 EDT ? [facility] ? Test Date: ?2017-05-26 Pat Name: ? DAVID ADOLPH ?Department: ?? [facility] [address] ? Room: ? MW531 Gender: ? 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 [id number] : ?1950 ? Requested By: PRADIP MONET Order Number: [id number] ? Reading MD: ?? LALY ROLF MD ? Measurements Intervals ?Broseley ? Rate: ? 73 ? P: ? AK: ? 0 ?QRS: ?-45 QRSD: ? 192 [...] Procedure Note Laly Dela Cruz MD - 05/27/2017Formatt ing of this note might be different from the original. 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 Provider Inter pretation to follow. Compared to ECG 05/25/2017 07:40:16 No significant changes I reviewed the tracing and have either a greed or edited the findings in this report. Electronically Signed On 8 13:18:21 EDT by LALY DELA CRUZ MD. Maria Antonia Zimmerman MD CARDIAC ECG ORDERABLES Performing Organization Address City/State/ZIP Code Phon e Number [facility] EKG (ABNORMAL) ELECTROLYTES (05/26/2017 5:57 EDT) athologist Signature Sodium 128 (L) 136 - 145 05/26/2017 [facility] mEq/L 6:54 EDT CENTER LABORATORY SERVICES Potassium 3.7 3.5 - 5.0 05/26/2017 [facility] mEq/L 6:54 EDT CENTER LABORATORY SERVICES Chloride 85 (L) 96 - 110 05/26/2017 [facility] mEq/L 6:54 EDT [facility]ENTER LABORATORY SERVICES CO2 35 (H) 22 - 32 05/26/2017 [facility] mEq/L 6:54 EDT [facility] LABORATORY SERVICES Specimen Anatomical Collection Method Collection Time Receive d Time (Source) Location / / Volume Laterality Blood specimen BLOOD SPECIMEN / 05/26/2017 5:57 2017 6:26 (specimen) Unknown EDT EDT Jayne Pozo MD CHEMISTRY & BLOOD GAS ORDERA BLES Performing Organization Address City/State/ZIP Code Phon e Number [facility] [address] [place] [address] SERVICES (ABNORMAL) BUN (05/26/2017 5:57 EDT) P athologist Signature BUN 9 (L) 10 - 26 05/26/2017 [facility] mg/dl 6:54 EDT [facility]ENTER LABORATORY SERVICES Specimen Anatomical Collection Method Collection Time Receive d Time (Source) Location / / Volume Laterality Blood specimen BLOOD SPECIMEN / 05/26/2017 5:57 2017 6:26 (specimen) Unknown EDT EDT Jayne Pozo MD CHEMISTRY & BLOOD GAS ORDERA BLES Performing Organization Address City/[facility]/ZIP Code Phon e Number [facility] [address] [place] [address] SERVICES MAGNESIUM (05/26/2017 5:57 EDT) P athologist Signature Magnesium 1.8 1.7 - 2.8 05/26/2017 [facility] mg/dl 6:54 EDT CENTER LABORATORY SERVICES Specimen Anatomical Collection Method Collection Time Receive d Time (Source) Location / / Volume Laterality Blood specimen BLOOD SPECIMEN / 05/26/2017 5:57 2017 6:26 (specimen) Unknown EDT EDT Jayne Pozo MD CHEMISTRY & BLOOD GAS ORDERA BLES Performing Organization Address City/[facility]/ZIP Code Phon e Number [facility] [address] [place] [address] SERVICES (ABNORMAL) CREATININE (05/26/2017 5:57 EDT) Patholo gist Method Time Signature Creatinine 0.53 (L) 0.66 - 05/26/2017 [facility] 1.25 mg/dl 6:54 EDT CENTER LABORATORY SERVICES GFR, Calculated 110 >60 05/26/2017 [facility] ml/min/1.7 6:54 EDT CENTER 3m2 LABORATORY SERVICES Comment: eGFR calculated using CKD-EPI equation f or non Americans. Multiply eGFR by 1.16 for Americans. Specimen Anatomical Collection Method Collection Time Receive d Time (Source) Location / / Volume Laterality Blood specimen BLOOD SPECIMEN / 05/26/2017 5:57 2017 6:26 (specimen) Unknown EDT EDT Jayne Pozo MD CHEMISTRY & BLOOD GAS ORDERA BLES Performing Organization Address City/State/ZIP Code Phon e Number [facility] [address] [place] [address] SERVICES (ABNORMAL) HEMAGRAM (05/26/2017 5:57 EDT) P athologist Signature WBC 7.06 4.0 - 10.4 05/26/2017 [facility] K/cmm 6:33 EDT CENTER LABORATORY SERVICES RBC 3.20 (L) 4.36 - 05/26/2017 [facility] 5.78 M/cmm 6:33 EDT CENTER LABORATORY SERVICES Hemoglobin 10.7 (L) 13.8 - 05/26/2017 [facility] 17.3 gm/dl 6:33 EDT CENTER LABORATORY SERVICES HCT 30.0 (L) 39.5 - 05/26/2017 [facility] 50.2 % 6:33 EDT CENTER LABORATORY SERVICES MCV 94 81 - 95 fl 05/26/2017 [facility] 6:33 EDT CENTER LABORATORY SERVICES MCH 33.4 (H) 27.6 - 05/26/2017 [facility] 33.0 pg 6:33 EDT CENTER LABORATORY SERVICES MCHC 35.7 32.8 - 05/26/2017 [facility] 36.4 gm/dl 6:33 EDT CENTER LABORATORY SERVICES RDW-CV 11.3 <14.2 % 05/26/2017 [facility] 6:33 EDT CENTER LABORATORY SERVICES RDW-SD 38.4 <46.0 fl 05/26/2017 [facility] 6:33 EDT CENTER LABORATORY SERVICES PLT 306 141 - 377 05/26/2017 [facility] K/cmm 6:33 EDT CENTER LABORATORY SERVICES MPV 10.3 9.5 - 12.7 05/26/2017 [facility] fl 6:33 EDT CENTER LABORATORY SERVICES Specimen Anatomical Collection Method Collection Time Receive d Time (Source) Location / / Volume Laterality Blood specimen BLOOD SPECIMEN / 05/26/2017 5:57 2017 6:26 (specimen) Unknown EDT EDT Jayne Pozo MD HEMATOLOGY & PF4 ORDERABLES Performing Organization Address City/[facility]/ZIP Code Phon e Number [facility] [address] [place] [address] SERVICES (ABNORMAL) ELECTROLYTES (05/25/2017 17:58 EDT) athologist Signature Sodium 130 (L) 136 - 145 05/25/2017 [facility] mEq/L 18:29 EDT CENTER LABORATORY SERVICES Potassium 3.6 3.5 - 5.0 05/25/2017 [facility] mEq/L 18:29 EDT [facility] Chloride 83 (L) 96 - 110 05/25/2017 [facility] mEq/L 18:29 EDT CENTER LABORATORY SERVICES CO2 36 (H) 22 - 32 05/25/2017 [facility] mEq/L 18:29 EDT CENTER LABORATORY SERVICES Specimen Anatomical Collection Method Collection Time Receive d Time (Source) Location / / Volume Laterality Blood specimen BLOOD SPECIMEN / 05/25/2017 17:58 05/25 (specimen) Unknown EDT 18:03 EDT Jayne Pozo MD CHEMISTRY & BLOOD GAS ORDERA BLES Performing Organization Address City/[facility]/ZIP Code Phon e Number [facility] [address] [place] [address] SERVICES OSMOLALITY, URINE (05/25/2017 14:29 EDT) athologist Signature Osmolality, Ur 284 150 - 05/25/2017 [facility] 1,150 15:18 EDT CENTER mos/kg LABORATORY SERVICES Specimen Anatomical Collection Method Collection Time Receive d Time (Source) Location / / Volume Laterality Urine URINE / Unknown 05/25/2017 14:29 05/26/19 18 (substance) EDT 14:37 EDT Gisella Christian MD URINALYSIS ORDERABLES Performing Organization Address City/[facility]/ZIP [facility] Phon e Number [facility] [address] [place] [address] SERVICES URINE ELECTROLYTES (05/25/2017 14:29 EDT) P athologist Signature Chloride, Ur 41 mEq/L 05/25/2017 [facility] 15:10 EDT CENTER LABORATORY SERVICES Comment: Reference Range: No reference range available Potassium, Urine 31.1 mEq/L 05/25/2017 15:[address] [facility] SERVICES Sodium, Ur 81.0 mEq/L 05/25/2017 15:10 [facility] Specimen Anatomical Collection Method Collection Time Receive d Time (Source) Location / / Volume Laterality Urine URINE / Unknown 05/25/2017 14:29 05/26/19 18 (substance) EDT 14:37 EDT Gisella Christian MD URINALYSIS ORDERABLES Performing Organization Address City/State/ZIP Code Phon e Number [facility] [address] [place] [address] SERVICES EKG 12-LEAD (05/25/2017 7:40 EDT) Specimen (Source) Anatomical Collection Method Collection Time Re ceived Time Location / / Volume Laterality 05/25/2017 7:40 EDT Narrative [facility] EKG - 06/02/2017 8:35 EDT ? [facility] ? Test Date: ?2017-05-25 Pat Name: ? DAVID MERA ?Department: ?? [facility] ? Room: ? MW531 Gender: ? 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 [id number] : ?1950 ? Requested By: PRADIP Nicole Number: [id number] ? Reading : ?? SENG PERSON SA, MD ? Measurements Intervals ?Broseley ? Rate: ? 76 ? P: ?35 AK: ? 218 ?QRS: ?-47 QRSD: ? 188 [...] Procedure Note Seng Brody Sa, MD - 06/02/2017F ormatting of this note might be different from the original. 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 Provider Inter pretation to follow. Compared to ECG 05/24/2017 07:22:06 No significant changes I reviewed the tracing and have either a greed or edited the findings in this report. Electronically Signed On 08:35:11 EDT by SENG PERSON SA, MD. Maria Antonia Zimmerman MD CARDIAC ECG ORDERABLES Performing Organization Address City/State/ZIP Code Phon e Number [facility] EKG (ABNORMAL) ELECTROLYTES (05/25/2017 5:59 EDT) P athologist Signature Sodium 127 (L) 136 - 145 05/25/2017 [facility] mEq/L 7:02 EDT CENTER LABORATORY SERVICES Potassium 3.7 3.5 - 5.0 05/25/2017 [facility] mEq/L 7:02 EDT CENTER LABORATORY SERVICES Chloride 85 (L) 96 - 110 05/25/2017 [facility] mEq/L 7:02 EDT CENTER LABORATORY SERVICES CO2 36 (H) 22 - 32 05/25/2017 [facility] mEq/L 7:02 EDT CENTER LABORATORY SERVICES Specimen Anatomical Collection Method Collection Time Receive d Time (Source) Location / / Volume Laterality Blood specimen BLOOD SPECIMEN / 05/25/2017 5:59 2017 6:23 (specimen) Unknown EDT EDT Jayne Pozo MD CHEMISTRY & BLOOD GAS ORDERA BLES Performing Organization Address City/State/ZIP Code Phon e Number [facility] [address] [place] [address] SERVICES (ABNORMAL) BUN (05/25/2017 5:59 EDT) athologist Signature BUN 9 (L) 10 - 26 05/25/2017 [facility] mg/dl 7:02 EDT CENTER LABORATORY SERVICES Specimen Anatomical Collection Method Collection Time Receive d Time (Source) Location / / Volume Laterality Blood specimen BLOOD SPECIMEN / 05/25/2017 5:59 2017 6:23 (specimen) Unknown EDT EDT Jayne Pozo MD CHEMISTRY & BLOOD GAS ORDERA BLES Performing Organization Address City/State/ZIP Code Phon e Number [facility] [address] [place] [address] SERVICES MAGNESIUM (05/25/2017 5:59 EDT) athologist Signature Magnesium 1.7 1.7 - 2.8 05/25/2017 [facility] mg/dl 7:02 EDT CENTER LABORATORY SERVICES Specimen Anatomical Collection Method Collection Time Receive d Time (Source) Location / / Volume Laterality Blood specimen BLOOD SPECIMEN / 05/25/2017 5:59 2017 6:23 (specimen) Unknown EDT EDT Jayne Pozo MD CHEMISTRY & BLOOD GAS ORDERA BLES Performing Organization Address City/[facility]/ZIP Code Phon e Number [facility] [address] [place] [address] SERVICES (ABNORMAL) CREATININE (05/25/2017 5:59 EDT) [facility] Method Time Signature Creatinine 0.54 (L) 0.66 - 05/25/2017 [facility] 1.25 mg/dl 7:02 EDT CENTER LABORATORY SERVICES GFR, Calculated 109 >60 05/25/2017 [facility] ml/min/1.7 7:02 T CENTER 3m2 LABORATORY SERVICES Comment: eGFR calculated using CKD-EPI equation f or non Americans. Multiply eGFR by 1.16 for Americans. Specimen Anatomical Collection Method Collection Time Receive d Time (Source) Location / / Volume Laterality Blood specimen BLOOD SPECIMEN / 05/25/2017 5:59 2017 6:23 (specimen) Unknown EDT EDT Jayne oPzo MD CHEMISTRY & BLOOD GAS ORDERA BLES Performing Organization Address City/State/ZIP Code Phon e Number [facility]ORY [address] [place] [address] SERVICES (ABNORMAL) HEMAGRAM (05/25/2017 5:59 EDT) P athologist Signature WBC 6.99 4.0 - 10.4 05/25/2017 [facility] K/[facility] 6:36 EDT CENTER LABORATORY SERVICES RBC 3.16 (L) 4.36 - 05/25/2017 [facility] 5.78 M/cmm 6:36 EDT CENTER LABORATORY SERVICES Hemoglobin 10.5 (L) 13.8 - 05/25/2017 [facility] 17.3 gm/dl 6:36 EDT CENTER LABORATORY SERVICES HCT 29.5 (L) 39.5 - 05/25/2017 [facility] 50.2 % 6:36 EDT CENTER LABORATORY SERVICES MCV 93 81 - 95 fl 05/25/2017 [facility] 6:36 EDT CENTER LABORATORY SERVICES MCH 33.2 (H) 27.6 - 05/25/2017 [facility] 33.0 pg 6:36 EDT CENTER LABORATORY SERVICES MCHC 35.6 32.8 - 05/25/2017 [facility] 36.4 gm/dl 6:36 EDT CENTER LABORATORY SERVICES RDW-CV 11.2 <14.2 % 05/25/2017 [facility] 6:36 EDT CENTER LABORATORY SERVICES RDW-SD 38.8 <46.0 fl 05/25/2017 [facility] 6:36 EDT CENTER LABORATORY SERVICES PLT 290 141 - 377 05/25/2017 [facility] K/[facility] 6:36 EDT CENTER LABORATORY SERVICES MPV 10.7 9.5 - 12.7 05/25/2017 [facility] fl 6:36 EDT CENTER LABORATORY SERVICES Specimen Anatomical Collection Method Collection Time Receive d Time (Source) Location / / Volume Laterality Blood specimen BLOOD SPECIMEN / 05/25/2017 5:59 2017 6:23 (specimen) Unknown EDT EDT Jayne Pozo MD HEMATOLOGY & PF4 ORDERABLES Performing Organization Address City/State/ZIP Code Phon e Number [facility] [address] [place] [address] SERVICES (ABNORMAL) ELECTROLYTES (05/24/2017 18:02 EDT) P athologist Signature Sodium 127 (L) 136 - 145 05/24/2017 [facility] mEq/L 18:40 EDT CENTER LABORATORY SERVICES Potassium 3.7 3.5 - 5.0 05/24/2017 [facility] mEq/L 18:40 EDT [facility] Chloride 80 (L) 96 - 110 05/24/2017 [facility] mEq/L 18:40 EDT [facility] CO2 37 (H) 22 - 32 05/24/2017 [facility] mEq/L 18:48 EDT [facility] Specimen Anatomical Collection Method Collection Time Receive d Time (Source) Location / / Volume Laterality Blood specimen BLOOD SPECIMEN / 05/24/2017 18:02 05/24 (specimen) Unknown EDT 18:16 EDT Jayne Pozo MD CHEMISTRY & BLOOD GAS ORDERA BLES Performing Organization Address City/State/ZIP Code Phon e Number [facility] [address] [place] [address] SERVICES EKG 12-LEAD (05/24/2017 7:22 EDT) Specimen (Source) Anatomical Collection Method Collection Time Re ceived Time Location / / Volume Laterality 05/24/2017 7:22 EDT Narrative [facility] EKG - 05/28/2017 9:56 EDT ? [facility] ? Test Date: ?2017-05-24 Pat Name: ? DAVID MERA ?Department: ?? [facility] [facility] ? Room: ? MW531 Gender: ? 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 [id number] : ?1950 ? Requested By: PRADIP Nicole Number: [id number] ? Reading MD: ?? ERVIN WILHELM MD ? Measurements Intervals ?Broseley ? Rate: ? 103 ?P: ?-19 AK: ? 232 ?QRS: ?-39 QRSD: ? 192 ?T: ?168 QT: ? 412 ? QTc: ?542 ? Interpretive Statements ELECTRONIC VENTRICULAR PACEMAKER Compared to ECG 05/23/2017 07:20:54 No significant changes I reviewed the tracing and have either a greed or edited the findings in this report. Electronically Signed On 8 09:56:53 EDT by ERVIN WILHELM MD. Procedure Note Ervin Wilhelm MD - 05/28/2017Formatti ng of this note might be different from the original. 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 Electronically Signed On 09:56:53 EDT by ERVIN WILHELM MD. Maria Antonia Zimmerman MD CARDIAC ECG ORDERABLES Performing Organization Address City/State/ZIP Code Phon e Number [facility] EKG (ABNORMAL) ELECTROLYTES (05/24/2017 5:51 EDT) athologist Signature Sodium 128 (L) 136 - 145 05/24/2017 [facility] mEq/L 6:56 EDT [facility] Potassium 3.9 3.5 - 5.0 05/24/2017 [facility] mEq/L 6:56 EDT [facility] Chloride 83 (L) 96 - 110 05/24/2017 [facility] mEq/L 6:56 EDT [facility] CO2 36 (H) 22 - 32 05/24/2017 [facility] mEq/L 7:10 EDT [facility] Specimen Anatomical Collection Method Collection Time Receive d Time (Source) Location / / Volume Laterality Blood specimen BLOOD SPECIMEN / 05/24/2017 5:51 2017 6:19 (specimen) Unknown EDT EDT Jayne Pozo MD CHEMISTRY & BLOOD GAS ORDERA BLES Performing Organization Address City/State/ZIP Code Phon e Number [facility] [address] [place] [address] SERVICES (ABNORMAL) BUN (05/24/2017 5:51 EDT) athologist Signature BUN 9 (L) 10 - 26 05/24/2017 [facility] mg/dl 6:56 EDT [facility] Specimen Anatomical Collection Method Collection Time Receive d Time (Source) Location / / Volume Laterality Blood specimen BLOOD SPECIMEN / 05/24/2017 5:51 2017 6:19 (specimen) Unknown EDT EDT Jayne Pozo MD CHEMISTRY & BLOOD GAS ORDERA BLES Performing Organization Address City/State/ZIP Code Phon e Number [facility] [address] [place] [address] SERVICES MAGNESIUM (05/24/2017 5:51 EDT) P athologist Signature Magnesium 1.7 1.7 - 2.8 05/24/2017 [facility] mg/dl 6:56 EDT [facility] Specimen Anatomical Collection Method Collection Time Receive d Time (Source) Location / / Volume Laterality Blood specimen BLOOD SPECIMEN / 05/24/2017 5:51 2017 6:19 (specimen) Unknown EDT EDT Jayne Pozo MD CHEMISTRY & BLOOD GAS ORDERA BLES Performing Organization Address City/[facility]/ZIP Code Phon e Number [facility] [address] [place] [address] SERVICES (ABNORMAL) CREATININE (05/24/2017 5:51 EDT) [facility] gist Method Time Signature Creatinine 0.59 (L) 0.66 - 05/24/2017 [facility] 1.25 mg/dl 6:56 EDT [facility] GFR, Calculated 105 >60 05/24/2017 [facility] ml/min/1.7 6:56 EDT [facility] Comment: eGFR calculated using CKD-EPI equation f or non Americans. Multiply eGFR by 1.16 for Americans. Specimen Anatomical Collection Method Collection Time Receive d Time (Source) Location / / Volume Laterality Blood specimen BLOOD SPECIMEN / 05/24/2017 5:51 2017 6:19 (specimen) Unknown EDT EDT Jayne Pozo MD CHEMISTRY & BLOOD GAS ORDERA BLES Performing Organization Address City/State/ZIP Code Phon e Number [facility] [address] [place] [address] SERVICES (ABNORMAL) HEMAGRAM (05/24/2017 5:51 EDT) P athologist Signature WBC 7.61 4.0 - 10.4 05/24/2017 [facility] K/cmm 6:30 EDT [facility] RBC 3.35 (L) 4.36 - 05/24/2017 [facility] 5.78 M/cmm 6:30 EDT [facility] Hemoglobin 11.0 (L) 13.8 - 05/24/2017 [facility] 17.3 gm/dl 6:30 EDT [facility] HCT 31.4 (L) 39.5 - 05/24/2017 [facility] 50.2 % 6:30 EDT [facility] MCV 94 81 - 95 fl 05/24/2017 [facility] 6:30 EDT [facility] MCH 32.8 27.6 - 05/24/2017 [facility] 33.0 pg 6:30 EDT [facility] MCHC 35.0 32.8 - 05/24/2017 [facility] 36.4 gm/dl 6:30 EDT [facility] RDW-CV 11.4 <14.2 % 05/24/2017 [facility] 6:30 EDT [facility] RDW-SD 39.0 <46.0 fl 05/24/2017 [facility] 6:30 EDT [facility] PLT 273 141 - 377 05/24/2017 [facility] K/cmm 6:30 EDT [facility] MPV 10.9 9.5 - 12.7 05/24/2017 [facility] fl 6:30 EDT [facility] Specimen Anatomical Collection Method Collection Time Receive d Time (Source) Location / / Volume Laterality Blood specimen BLOOD SPECIMEN / 05/24/2017 5:51 2017 6:19 (specimen) Unknown EDT EDT Jayne Pozo MD HEMATOLOGY & PF4 ORDERABLES Performing Organization Address City/State/ZIP Code Phon e Number [facility] [address] [place] [address] SERVICES (ABNORMAL) ELECTROLYTES (05/23/2017 21:40 EDT) P athologist Signature Sodium 128 (L) 136 - 145 05/23/2017 [facility] mEq/L 22:23 EDT [facility] Potassium 3.6 3.5 - 5.0 05/23/2017 [facility] mEq/L 22:23 EDT [facility] Chloride 81 (L) 96 - 110 05/23/2017 [facility] mEq/L 22:23 EDT [facility] CO2 38 (H) 22 - 32 05/23/2017 [facility] mEq/L 22:56 EDT [facility] Specimen Anatomical Collection Method Collection Time Receive d Time (Source) Location / / Volume Laterality Blood specimen BLOOD SPECIMEN / 05/23/2017 21:40 05/23 (specimen) Unknown EDT 21:45 EDT Jayne Pozo MD CHEMISTRY & BLOOD GAS ORDERA BLES Performing Organization Address City/[facility]/ZIP Code Phon e Number [facility] [address] [place] [address] SERVICES ECG REPORT - SCANNED (05/23/2017 15:08 EDT) Specimen (Source) Anatomical Collection Method Collection Time Re ceived Time Location / / Volume Laterality 05/23/2017 15:08 EDT Narrative This result has an attachment that is no t available. Scan 2 Pants Cutter PROCEDURE/MINOR SURGICAL ORD ERABLES (ABNORMAL) ELECTROLYTES (05/23/2017 12:16 EDT) P athologist Signature Sodium 126 (L) 136 - 145 05/23/2017 [facility] mEq/L 12:55 EDT [facility] Potassium 3.7 3.5 - 5.0 05/23/2017 [facility] mEq/L 12:55 EDT [facility] Chloride 81 (L) 96 - 110 05/23/2017 [facility] mEq/L 12:55 EDT [facility] CO2 36 (H) 22 - 32 05/23/2017 [facility] mEq/L 12:55 EDT [facility] Specimen Anatomical Collection Method Collection Time Receive d Time (Source) Location / / Volume Laterality Blood specimen BLOOD SPECIMEN / 05/23/2017 12:16 05/23 (specimen) Unknown EDT 12:26 EDT Jayne Pozo MD CHEMISTRY & BLOOD GAS ORDERA BLES Performing Organization Address City/[facility]/ZIP Code Phon e Number [facility] [address] [place] [address] SERVICES ECG REPORT - SCANNED (05/23/2017 11:51 EDT) Specimen (Source) Anatomical Collection Method Collection Time Re ceived Time Location / / Volume Laterality 05/23/2017 11:51 EDT Narrative This result has an attachment that is no t available. Scan 2 Pants Cutter PROCEDURE/MINOR SURGICAL ORD ERABLES ECHOCARDIOGRAM LIMITED (05/23/2017 10:59 EDT) Anatomical Region Laterality Modality Other Specimen (Source) Anatomical Collection Method Collection Time Re ceived Time Location / / Volume Laterality 05/23/2017 10:59 EDT Narrative 05/23/2017 11:19 EDT *Interpreting Group:* *[facility]* [address] [place] [address] Date of study: 05/23/2017 Transthoracic Echocardiography M-mode, [...] ?Akash Reyes MD ATTENDING ?Tony Rosenberg MD STITCHER STANDARD MACHINE ??Hali Del Real, [facility] PERFORMING ?? [facility], Ip ORDERING ? Jayne [...] 11:19 Procedure Note Bobby Andrade MD - 05/23/2017For matting of this note might be different from the original. *Interpreting Group:* *[facility]* [address] [place] [address] Date of study: 05/23/2017 Transthoracic Echocardiography M-mode, [...] Akash Reyes MD ATTENDING Tony Rosenberg MD STITCHER STANDARD MACHINE Hali Del Real JUSTINO PERFORMING [facility], Ip ORDERING Jayne Landry REFERRING Katia Mccallum *PROCEDURE DATA* Procedure information: This study was [...] signed by Bobby Andrade MD 05/23/2017 11:19 Jayne Pozo MD CARDIAC ECHO ORDERABLES ECG REPORT - SCANNED (05/23/2017 10:42 EDT) Specimen (Source) Anatomical Collection Method Collection Time Re ceived Time Location / / Volume Laterality 05/23/2017 10:42 EDT Narrative This result has an attachment that is no t available. Scan 2 Pants Cutter PROCEDURE/MINOR SURGICAL ORD ERABLES FLUID DIFFERENTIAL (05/23/2017 7:47 EDT) P athologist Signature Neutrophils, 30 % 05/23/2017 [facility] Fluid 11:34 EDT [facility] Lymphocytes, 64 % 05/23/2017 [facility] Fluid 11:34 EDT [facility] [place]/Macro, 5 % 05/23/2017 [facility] Fluid 11:34 EDT [facility] Eosinophil, 1 % 05/23/2017 [facility] Fluid 11:34 EDT [facility] Specimen Anatomical Location Collection Method Collection Time Received Time (Source) / Laterality / Volume PERICARDIAL FLUID / 05/23/2017 7:47 05/23 8:18 Unknown EDT EDT Сергей Damico MD GEN LAB UNIT COLLECT ORDERAB LES Performing Organization Address City/[facility]/ZIP [facility] Phon e Number [facility] [address] [place] [address] SERVICES FUNGUS CULTURE/SMEAR, OTHER (05/23/2017 7:47 EDT) [facility] Novogenie Method Time Signature Fungal Smear No fungi 05/23/2017 [facility] seen 14:20 EDT [facility] Result No fungi 05/30/2017 [facility] isolated 7:35 EDT [facility] Specimen Anatomical Location Collection Method Collection Time Received Time (Source) / Laterality / Volume FOSMIC PERICARDIAL FLUID / 05/23/2017 7:47 05/23 9:17 Unknown EDT EDT Comment: Markedly bloody Сергей Damico MD MICROBIOLOGY - GENERAL ORDER IRWIN Performing Organization Address City/State/ZIP Code Phon e Number [facility] [address] [place] [address] SERVICES ANAEROBE CULTURE/SMEAR(INC. AEROBES), FLUID (05/23/2017 7:47 EDT) [facility] gist Method Time Signature Gram Smear Few 05/23/2017 [facility] Result Polys 9:37 EDT [facility] Gram Smear No bacteria 05/23/2017 [facility] Result seen 9:37 EDT [facility] Result No growth 05/25/2017 [facility] 11:45 EDT [facility] Specimen Anatomical Location Collection Method Collection Time Received Time (Source) / Laterality / Volume FOSMIC PERICARDIAL FLUID / 05/23/2017 7:47 05/23 9:16 Unknown EDT EDT Comment: Markedly bloody Сергей Damico MD MICROBIOLOGY - GENERAL ORDER IRWIN Performing Organization Address City/[facility]/ZIP Code Phon e Number [facility] [address] [place] [address] SERVICES HEMATOCRIT, BODY FLUID (05/23/2017 7:47 EDT) athologist Signature Hematocrit,Bod 6.5 % 05/23/2017 [facility] y Fld 9:56 EDT [facility] Comment: PERICARDIAL FLUID Specimen Anatomical Location Collection Method Collection Time Received Time (Source) / Laterality / Volume FOSCHM PERICARDIAL FLUID / 05/23/2017 7:47 05/23 8:18 Unknown EDT EDT Сергей Damico MD GEN LAB UNIT COLLECT ORDERAB LES Performing Organization Address City/[facility]/ZIP Code Phon e Number [facility] [address] [place] [address] SERVICES FLUID CELL COUNT (05/23/2017 7:47 EDT) [facility] gist Method Time Signature RBC, Fluid 661,000 /cmm 05/23/2017 [facility] 9:41 EDT [facility] Nucleated 1,773 /cmm 05/23/2017 [facility] Cells 9:41 EDT [facility] Fluid Comment Markedly 05/23/2017 [facility] bloody 9:41 EDT [facility] Specimen Anatomical Location Collection Method Collection Time Received Time (Source) / Laterality / Volume [facility] PERICARDIAL FLUID / 05/23/2017 7:47 05/23 8:18 Unknown EDT EDT Сергей Damico MD GEN LAB UNIT COLLECT ORDERAB LES Performing Organization Address City/[facility]/ZIP Code Phon e Number [facility] [address] [place] [address] SERVICES TOTAL PROTEIN, FLUID (05/23/2017 7:47 EDT) athologist Signature Protein, Fluid 5.5 g/dl 05/23/2017 [facility] 9:58 EDT [facility] Comment: Reference Range: Pleural fluid specimen (specimen) Exudate [...] blood, serum, or plasma is recommended. Specimen Anatomical Location Collection Method Collection Time Received Time (Source) / Laterality / Volume [facility] PERICARDIAL FLUID / 05/23/2017 7:47 05/23 8:18 Unknown EDT EDT Сергей Damico MD GEN LAB UNIT COLLECT ORDERAB LES Performing Organization Address City/[facility] Code Phon e Number [facility] [address] [place] [address] SERVICES LDH, FLUID (05/23/2017 7:47 EDT) athologist Signature LDH, Fluid 2,337 U/L 05/23/2017 [facility] 10:05 EDT [facility] Comment: Pleural fluid specimen (specimen) Reference Range: Suggestive of exudate if fluid cholesterol is > 45 mg/dl or fluid LDH is greater than 0.45 times the upper limit of normal serum LDH leve ls. Peritoneal fluid sample (specimen) No reference range [...] blood, serum, or plasma is recommended. Specimen Anatomical Location Collection Method Collection Time Received Time (Source) / Laterality / Volume [facility] PERICARDIAL FLUID / 05/23/2017 7:47 05/23 8:18 Unknown EDT EDT Сергей Damico MD GEN LAB UNIT COLLECT ORDERAB LES Performing Organization Address City/[facility] Phon e Number [facility] [address] [place] [address] SERVICES GLUCOSE, FLUID (05/23/2017 7:47 EDT) athologist Signature Glucose, Fluid 54 mg/dl 05/23/2017 [facility] 9:58 [facility] SERVICES Comment: Reference Range: Pleural fluid specimen (specimen) Low [...] blood, serum, or plasma is recommended. Specimen Anatomical Location Collection Method Collection Time Received Time (Source) / Laterality / Volume [facility] PERICARDIAL FLUID / 05/23/2017 7:47 05/23 8:18 Unknown EDT EDT Сергей Damico MD GEN LAB UNIT COLLECT ORDERAB LES Performing Organization Address City/State/ZIP Code Phon e Number [facility] [address] [place] [address] SERVICES ALBUMIN, FLUID (05/23/2017 7:47 EDT) athologist Signature Albumin, Fluid 2.5 g/dl 05/23/2017 [facility] 9:58 [facility] Comment: Reference Range: Pleural fluid specimen (specimen) No [...] blood, serum, or plasma is recommended. Specimen Anatomical Location Collection Method Collection Time Received Time (Source) / Laterality / Volume [facility] PERICARDIAL FLUID / 05/23/2017 7:47 05/23 8:18 Unknown EDT EDT Сергей Damico MD GEN LAB UNIT COLLECT ORDERAB LES Performing Organization Address City/State/ZIP Code Phon e Number [facility] [address] [place] [address] SERVICES EKG 12-LEAD (05/23/2017 7:20 EDT) Specimen (Source) Anatomical Collection Method Collection Time Re ceived Time Location / / Volume Laterality 05/23/2017 7:20 EDT Narrative [facility] EKG - 05/23/2017 11:4 5 EDT ? [facility] ? Test Date: ?2017-05-23 Pat Name: ? DAVID MERA ?Department: ?? [facility] 5 ? Room: ? MW531 Gender: ? 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 [id number] : ?1950 ? Requested By: PRADIP MONET Order Number: [id number] ? Reading MD: ?? MARCO A FOX MD ? Measurements Intervals ?Broseley ? Rate: ? 102 ?P: ? AK: ? 0 ?QRS: ?-20 QRSD: ? 189 ?T: ?178 QT: ? 398 ? QTc: ?519 ? Interpretive Statements ELECTRONIC VENTRICULAR PACEMAKER ABNORMAL RHYTHM ECG I reviewed the tracing and have either a greed or edited the findings in this report. Electronically Signed On 11:45:47 EDT by MARCO A FOX MD. Procedure Note Marco A Fox MD - 05/23/2017Formatt ing of this note might be different from the original. 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 Electronically Signed On 11:45:47 EDT by MARCO A FOX MD. Maria Antonia Zimmerman MD CARDIAC ECG ORDERABLES Performing Organization Address City/State/ZIP Code Phon e Number [facility] EKG (ABNORMAL) ELECTROLYTES (05/23/2017 6:42 EDT) athologist Signature Sodium 124 (LL) 136 - 145 05/23/2017 [facility] mEq/L 7:45 EDT [facility] Potassium 3.5 3.5 - 5.0 05/23/2017 [facility] mEq/L 7:45 EDT [facility] Chloride 84 (L) 96 - 110 05/23/2017 [facility] mEq/L 7:45 EDT [facility] CO2 33 (H) 22 - 32 05/23/2017 [facility] mEq/L 7:45 EDT [facility] Specimen Anatomical Collection Method Collection Time Receive d Time (Source) Location / / Volume Laterality Blood specimen BLOOD SPECIMEN / 05/23/2017 6:42 2017 7:16 (specimen) Unknown EDT EDT Jayne Pozo MD CHEMISTRY & BLOOD GAS ORDERA BLES Performing Organization Address City/State/ZIP Code Phon e Number [facility] [address] [place] [address] SERVICES BUN (05/23/2017 6:42 EDT) athologist Signature BUN 10 10 - 26 05/23/2017 [facility] mg/dl 7:45 EDT [facility] Specimen Anatomical Collection Method Collection Time Receive d Time (Source) Location / / Volume Laterality Blood specimen BLOOD SPECIMEN / 05/23/2017 6:42 2017 7:16 (specimen) Unknown EDT EDT Jayne Pozo MD CHEMISTRY & BLOOD GAS ORDERA BLES Performing Organization Address City/State/ZIP Code Phon e Number [facility] [address] [place] [address] SERVICES MAGNESIUM (05/23/2017 6:42 EDT) athologist Signature Magnesium 1.7 1.7 - 2.8 05/23/2017 [facility] mg/dl 7:45 EDT [facility] Specimen Anatomical Collection Method Collection Time Receive d Time (Source) Location / / Volume Laterality Blood specimen BLOOD SPECIMEN / 05/23/2017 6:42 2017 7:16 (specimen) Unknown EDT EDT Jayne Pozo MD CHEMISTRY & BLOOD GAS ORDERA BLES Performing Organization Address City/State/ZIP Code Phon e Number [facility] [address] [place] [address] SERVICES (ABNORMAL) CREATININE (05/23/2017 6:42 EDT) Patholo gist Method Time Signature Creatinine 0.50 (L) 0.66 - 05/23/2017 [facility] 1.25 mg/dl 7:45 EDT [facility] GFR, Calculated 113 >60 05/23/2017 [facility] ml/min/1.7 7:45 EDT [facility] 3[facility]2 [facility] SERVICES Comment: eGFR calculated using CKD-EPI equation f or non Americans. Multiply eGFR by 1.16 for Americans. Specimen Anatomical Collection Method Collection Time Receive d Time (Source) Location / / Volume Laterality Blood specimen BLOOD SPECIMEN / 05/23/2017 6:42 2017 7:16 (specimen) Unknown EDT EDT Jayne Pozo MD CHEMISTRY & BLOOD GAS ORDERA BLES Performing Organization Address City/[facility]/ZIP Code Phon e Number [facility] [address] [place] [address] SERVICES (ABNORMAL) HEMAGRAM (05/23/2017 6:42 EDT) P athologist Signature WBC 8.96 4.0 - 10.4 05/23/2017 [facility] K/cmm 7:24 EDT [facility] RBC 3.30 (L) 4.36 - 05/23/2017 [facility] 5.78 M/cmm 7:24 EDT [facility] Hemoglobin 11.0 (L) 13.8 - 05/23/2017 [facility] 17.3 gm/dl 7:24 EDT [facility] HCT 30.8 (L) 39.5 - 05/23/2017 [facility] 50.2 % 7:24 EDT [facility] MCV 93 81 - 95 fl 05/23/2017 [facility] 7:24 EDT [facility] MCH 33.3 (H) 27.6 - 05/23/2017 [facility] 33.0 pg 7:24 EDT [facility] MCHC 35.7 32.8 - 05/23/2017 [facility] 36.4 gm/dl 7:24 EDT [facility] RDW-CV 11.3 <14.2 % 05/23/2017 [facility] 7:24 EDT [facility] RDW-SD 38.5 <46.0 fl 05/23/2017 [facility] 7:24 EDT [facility] PLT 254 141 - 377 05/23/2017 [facility] K/cmm 7:24 EDT [facility] MPV 11.2 9.5 - 12.7 05/23/2017 [facility] fl 7:24 EDT [facility] Specimen Anatomical Collection Method Collection Time Receive d Time (Source) Location / / Volume Laterality Blood specimen BLOOD SPECIMEN / 05/23/2017 6:42 2017 7:16 (specimen) Unknown EDT EDT Jayne Pozo MD HEMATOLOGY & PF4 ORDERABLES Performing Organization Address City/State/ZIP Code Phon e Number [facility] [address] [place] [address] SERVICES CYTOPATHOLOGY (05/23/2017 0:00 EDT) Component Value Ref Test Analysis Performed At [facility] gist Range Method Time Signature Pathology CYTOPATHOLOGY REPORT [facility] AL Report: CENTER Reports generated via electronic interface contain origina l data; LABORATORY however they are lacking the format of the original report. SERVICES Caution should be taken when reading/interpreting unformatte d reports. Name: ? DAVID MERA ? Accession #: ? [id number] : ? 1950 (Age: 66) ??M ?Collect Date: ? 05/23/2017 Location: ? M005 ? Receive Date: ? 05/23/2017 Provider: ? СЕРГЕЙ DAMICO MD Copy to: ?LALY LUIS MD ? CYTOLOGIC DIAGNOSIS: PERICARDIAL FLUID. CYTOLOGIC EVALUATION: - ??Negative for malignant cells. - ??Scattered mesothelial ce lls in a background of blood and acute inflammation. Document reviewed and electronically signed by: ? RIA KRAUSE MD Report Date: ??05/26/2017 16:24 By the signature above, the attending physician certifies th at he/she has personally conducted a gross and/or microscopic examin ation of the described specimens and rendered or confirmed the above diagnosis. Specimen Type: ? Pericardial Fluid Clinical History: ? Moderate pericardial effusion and cough along with severe hy ponatremia. ? Gross Description: ? 410 ccs of opaque red fluid were received and pr ocessed by selective cellular enhancement technique. ? End of Report Specimen (Source) Anatomical Collection Method Collection Time Re ceived Time Location / / Volume Laterality 05/23/2017 05/23/2017 9:40 EDT Сергей Damico MD PATHOLOGY ORDERABLES Performing Organization Address City/State/ZIP Code Phon e Number [facility] [address] [place] [address] SERVICES (ABNORMAL) ELECTROLYTES (05/22/2017 23:40 EDT) athologist Signature Sodium 125 (L) 136 - 145 05/23/2017 [facility] mEq/L 0:39 EDT CENTER LABORATORY SERVICES Potassium 3.3 (L) 3.5 - 5.0 05/23/2017 [facility] mEq/L 0:39 EDT [facility] LAB[facility]ORY SERVICES Chloride 84 (L) 96 - 110 05/23/2017 [facility] mEq/L 0:39 EDT [facility]ENTER LAB[facility] SERVICES CO2 33 (H) 22 - 32 05/23/2017 [facility] mEq/L 0:39 EDT [facility] SERVICES Specimen Anatomical Collection Method Collection Time Receive d Time (Source) Location / / Volume Laterality Blood specimen BLOOD SPECIMEN / 05/22/2017 23:40 05/22 (specimen) Unknown EDT 23:58 EDT Jayne Pozo MD CHEMISTRY & BLOOD GAS ORDERA BLES Performing Organization Address City/State/ZIP Code Phon e Number [facility] [address] [place] [address] SERVICES (ABNORMAL) ELECTROLYTES (05/22/2017 18:36 EDT) athologist Signature Sodium 124 (LL) 136 - 145 05/22/2017 [facility] mEq/L 19:37 EDT [facility]ENTER LAB[facility]ORY SERVICES Comment: Slight hemolysis Potassium 3.9 3.5 - 5.0 mEq/L 05/22/2017 19:37 EDT [facility] SERVICES Comment: Slight hemolysis Hemolysis may elevate potassium result. Chloride 81 (L) 96 - 110 mEq/L 05/22/2017 19:37 EDT [facility] SERVICES Comment: Slight hemolysis CO2 32 22 - 32 mEq/L 05/22/2017 19:37 EDT [facility] SERVICES Comment: Slight hemolysis Specimen Anatomical Collection Method Collection Time Receive d Time (Source) Location / / Volume Laterality Blood specimen BLOOD SPECIMEN / 05/22/2017 18:36 05/22 (specimen) Unknown EDT 19:04 EDT Jayne Pozo MD CHEMISTRY & BLOOD GAS ORDERA BLES Performing Organization Address City/State/ZIP Code Phon e Number [facility] [address] [place] [address] SERVICES CHEST PA AND LATERAL (05/22/2017 14:43 EDT) Anatomical Region Laterality Modality Other Specimen Anatomical Collection Method Collection Time Receive d Time (Source) Location / / Volume Laterality 05/22/2017 14:43 05/22/2017 EDT 15:28 EDT Narrative 05/22/2017 15:28 EDT CHEST PA AND LATERAL [...] seen. Procedure Note Laly Alberto MD - 05/22/2017Format ting of this note might be different from the original. CHEST PA AND LATERAL 05/22/2017 2:43 PM [...] with the left diaphragm less well seen. Seng Rand MD PhD IMG DIAGNOSTIC IMAGI NG ORDERABLES (ABNORMAL) ELECTROLYTES (05/22/2017 12:36 EDT) athologist Signature Sodium 121 (LL) 136 - 145 05/22/2017 [facility] mEq/L 13:23 EDT [facility] Comment: Moderate hemolysis Potassium 5.3 (H) 3.5 - 5.0 mEq/L 05/22/2017 13:23 EDT [facility] SERVICES Comment: Moderate hemolysis Hemolysis may elevate potassium result. Chloride 85 (L) 96 - 110 mEq/L 05/22/2017 13:23 EDT [facility] SERVICES Comment: Moderate hemolysis CO2 27 22 - 32 mEq/L 05/22/2017 13:23 EDT [facility] SERVICES Comment: Moderate hemolysis Specimen Anatomical Collection Method Collection Time Receive d Time (Source) Location / / Volume Laterality Blood specimen BLOOD SPECIMEN / 05/22/2017 12:36 05/22 (specimen) Unknown EDT 12:51 EDT Jayne Pozo MD CHEMISTRY & BLOOD GAS ORDERA BLES Performing Organization Address City/[facility]/ZIP Code Phon e Number [facility] [address] [place] [address] SERVICES BACTERIAL CULTURE, BLOOD (05/22/2017 9:58 EDT) athologist Signature Result No growth 05/27/2017 [facility] 6:35 EDT CENTER LAB[facility]ATORY SERVICES Specimen Anatomical Collection Method Collection Time Receive d Time (Source) Location / / Volume Laterality Blood specimen BLOOD SPECIMEN / 05/22/2017 9:58 2017 (specimen) Unknown EDT 10:47 EDT Comment: Left~Hand~AEROBIC BLOOD CULTURE BOTTLE~Volume of blood collected may not be adequate for detection of bacteremia/sep ticemia.~2ND SET Jayne Pozo MD MICROBIOLOGY - GENERAL ORDER IRWIN Performing Organization Address City/[facility]/ZIP Code Phon e Number [facility] [address] [place] [address] SERVICES BACTERIAL CULTURE, BLOOD (05/22/2017 9:58 EDT) athologist Signature Result No growth 05/27/2017 [facility] 6:35 EDT [facility]ENTER LAB[facility]ATORY SERVICES Specimen Anatomical Collection Method Collection Time Receive d Time (Source) Location / / Volume Laterality Blood specimen BLOOD SPECIMEN / 05/22/2017 9:58 2017 (specimen) Unknown EDT 10:47 EDT Comment: Left~Hand~Total volume of blood collected:~20 ml Jayne Pozo MD MICROBIOLOGY - GENERAL ORDER IRWIN Performing Organization Address City/State/ZIP Code Phon e Number [facility] [address] [place] [address] SERVICES EKG 12-LEAD (05/22/2017 8:04 EDT) Specimen (Source) Anatomical Collection Method Collection Time Re ceived Time Location / / Volume Laterality 05/22/2017 8:04 EDT Narrative [facility] EKG - 05/26/2017 12:5 0 EDT ? [facility] ? Test Date: ?2017-05-22 Pat Name: ? DAVID MERA ?Department: ?? [facility] ? Room: ? MW531 Gender: ? 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 [id number] : ?1950 ? Requested By: PRADIP MONET Order Number: [id number] ? Reading MD: ?? GAGAN RAMOS MD ? Measurements Intervals ?[place] ? Rate: ? 115 ?P: ?-20 AK: ? 237 ?QRS: ?-24 QRSD: ? 177 [...] MD. Procedure Note Gagan Ramos MD - 05/26/2017Formattin g of this note might be different from the original. 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 Electronically Signed On 12:50:27 EDT by GAGAN RAMOS MD. Maria Antonia Zimmerman MD CARDIAC ECG ORDERABLES Performing Organization Address City/[facility]/ZIP Code Phon e Number [facility] EKG BUN (05/22/2017 4:09 EDT) athologist Signature BUN 11 - 05/22/2017 [facility] mg/dl 4:54 EDT [facility]ENTER LAB[facility]ATORY SERVICES Specimen Anatomical Collection Method Collection Time Receive d Time (Source) Location / / Volume Laterality Blood specimen BLOOD SPECIMEN / 05/22/2017 4:09 2017 4:18 (specimen) Unknown EDT EDT Jayne Pozo MD CHEMISTRY & BLOOD GAS ORDERA BLES Performing Organization Address [facility] Code Phon e Number [facility] [address] [place] [address] SERVICES MAGNESIUM (05/22/2017 4:09 EDT) athologist Signature Magnesium 2.1 1.7 - 2.8 05/22/2017 [facility] mg/dl 4:54 EDT [facility]ENTER LAB[facility] SERVICES Specimen Anatomical Collection Method Collection Time Receive d Time (Source) Location / / Volume Laterality Blood specimen BLOOD SPECIMEN / 05/22/2017 4:09 2017 4:18 (specimen) Unknown EDT EDT Jayne Pozo MD CHEMISTRY & BLOOD GAS ORDERA BLES Performing Organization Address [facility] Phon e Number [facility] [address] [place] [address] SERVICES (ABNORMAL) CREATININE (05/22/2017 4:09 EDT) Patholo gist Method Time Signature Creatinine 0.56 (L) 0.66 - 05/22/2017 [facility] 1.25 mg/dl 4:54 EDT CENTER LABORATORY SERVICES GFR, Calculated 108 >60 05/22/2017 [facility] ml/min/1.7 4:54 EDT CENTER 3m2 LABORATORY SERVICES Comment: eGFR calculated using CKD-EPI equation f or non Americans. Multiply eGFR by 1.16 for Americans. Specimen Anatomical Collection Method Collection Time Receive d Time (Source) Location / / Volume Laterality Blood specimen BLOOD SPECIMEN / 05/22/2017 4:09 2017 4:18 (specimen) Unknown EDT EDT Jayne Pozo MD CHEMISTRY & BLOOD GAS ORDERA BLES Performing Organization Address City/State/ZIP Code Phon e Number [facility] [address] [place] [address] SERVICES (ABNORMAL) HEMAGRAM (05/22/2017 4:09 EDT) P athologist Signature WBC 10.75 (H) 4.0 - 10.4 05/22/2017 [facility] K/cmm 4:37 EDT [facility]ENTER [facility] SERVICES RBC 3.70 (L) 4.36 - 05/22/2017 [facility] 5.78 M/cmm 4:37 EDT [facility] SERVICES Hemoglobin 12.2 (L) 13.8 - 05/22/2017 [facility] 17.3 gm/dl 4:37 EDT [facility] SERVICES HCT 34.1 (L) 39.5 - 05/22/2017 [facility] 50.2 % 4:37 EDT [facility] SERVICES MCV 92 81 - 95 fl 05/22/2017 [facility] 4:37 EDT [facility] SERVICES MCH 33.0 27.6 - 05/22/2017 [facility] 33.0 pg 4:37 EDT [facility] SERVICES MCHC 35.8 32.8 - 05/22/2017 [facility] 36.4 gm/dl 4:37 EDT [facility] SERVICES RDW-CV 10.9 <14.2 % 05/22/2017 [facility] 4:37 EDT [facility] LAB[facility] SERVICES RDW-SD 37.2 <46.0 fl 05/22/2017 [facility] 4:37 EDT [facility]ENTER LAB[facility]ATORY SERVICES PLT 294 141 - 377 05/22/2017 [facility] K/cmm 4:37 EDT [facility] SERVICES MPV 10.7 9.5 - 12.7 05/22/2017 [facility] fl 4:37 EDT [facility]ENTER [facility] SERVICES Specimen Anatomical Collection Method Collection Time Receive d Time (Source) Location / / Volume Laterality Blood specimen BLOOD SPECIMEN / 05/22/2017 4:09 2017 4:18 (specimen) Unknown EDT EDT Jayne Pozo MD HEMATOLOGY & PF4 ORDERABLES Performing Organization Address City/[facility] Phon e Number [facility] [address] [place] [address] SERVICES (ABNORMAL) ELECTROLYTES (05/22/2017 4:09 EDT) athologist Signature Sodium 122 (LL) 136 - 145 05/22/2017 [facility] mEq/L 4:54 EDT [facility] SERVICES Potassium 4.0 3.5 - 5.0 05/22/2017 [facility] mEq/L 4:54 EDT [facility] SERVICES Chloride 84 (L) 96 - 110 05/22/2017 [facility] mEq/L 4:54 EDT [facility] SERVICES CO2 29 22 - 32 05/22/2017 [facility] mEq/L 4:54 EDT [facility] SERVICES Specimen Anatomical Collection Method Collection Time Receive d Time (Source) Location / / Volume Laterality Blood specimen BLOOD SPECIMEN / 05/22/2017 4:09 2017 4:18 (specimen) Unknown EDT EDT Maria Antonia Zimmerman MD CHEMISTRY & BLOOD GAS ORDERA BLES Performing Organization Address City/[facility]/ZIP Code Phon e Number [facility] [address] [place] [address] SERVICES (ABNORMAL) ELECTROLYTES (05/22/2017 0:23 EDT) P athologist Signature Sodium 120 (LL) 136 - 145 05/22/2017 [facility] mEq/L 1:00 EDT [facility] SERVICES Potassium 3.4 (L) 3.5 - 5.0 05/22/2017 [facility] mEq/L 1:00 EDT [facility] SERVICES Chloride 83 (L) 96 - 110 05/22/2017 [facility] mEq/L 1:00 EDT [facility] SERVICES CO2 31 22 - 32 05/22/2017 [facility] mEq/L 1:00 EDT [facility] SERVICES Specimen Anatomical Collection Method Collection Time Receive d Time (Source) Location / / Volume Laterality Blood specimen BLOOD SPECIMEN / 05/22/2017 0:23 2017 0:27 (specimen) Unknown EDT EDT Maria Antonia Zimmerman MD CHEMISTRY & BLOOD GAS ORDERA BLES Performing Organization Address City/State/ZIP Code Phon e Number [facility] [address] [place] [address] SERVICES EKG 12-LEAD (05/21/2017 20:29 EDT) Specimen (Source) Anatomical Collection Method Collection Time Re ceived Time Location / / Volume Laterality 05/21/2017 20:29 EDT Narrative [facility] EKG - 05/30/2017 11:5 5 EDT ? [facility] ? Test Date: ?2017-05-21 Pat Name: ? DAVID MERA ?Department: ?? [facility] [address] ? Room: ? MW531 Gender: ? 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 [id number] : ?1950 ? Requested By: ROBLES Cabral Order Number: [id number] ? Reading : ?? ASHLEY EDWARDS MD ? Measurements Intervals ?[place]roseley ? Rate: ? 109 ?P: ? AK: ? 0 ?QRS: ?-41 QRSD: ? 179 [...] Procedure Note Ashley Edwards Jr., MD - 05/30/2017For matting of this note might be different from the original. 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 Electronically Signed On 8 11:55:09 EDT by ASHLEY EDWARDS MD. Seng Rand MD PhD CARDIAC ECG ORDERABL ES Performing Organization Address City/State/ZIP Code Phon e Number [facility] EKG PORTABLE CHEST 1 VIEW (05/21/2017 20:25 EDT) Anatomical Region Laterality Modality Other Specimen Anatomical Collection Method Collection Time Receive d Time (Source) Location / / Volume Laterality 05/21/2017 20:25 05/21/2017 EDT 20:35 EDT Narrative 05/21/2017 20:35 EDT PORTABLE CHEST 1 VIEW [...] however cannot be excluded [facility] a [facility]. Procedure Note Anthony Hartman MD - 05/21/2017Formattin g of this note might be different from the original. PORTABLE CHEST 1 VIEW 05/21/2017 8:25 PM [...] excluded on a semiupright upri t radiograph. Seng Rand MD PhD IMG DIAGNOSTIC IMAGI NG ORDERABLES (ABNORMAL) ELECTROLYTES (05/21/2017 20:08 EDT) athologist Signature Sodium 121 (LL) 136 - 145 05/21/2017 [facility] mEq/L 20:54 [facility] SERVICES Potassium 3.7 3.5 - 5.0 05/21/2017 [facility] mEq/L 20:54 [facility] SERVICES Chloride 79 (L) 96 - 110 05/21/2017 [facility] mEq/L 20:54 [facility] SERVICES CO2 32 22 - 32 05/21/2017 [facility] mEq/L 20:54 [facility] SERVICES Specimen Anatomical Collection Method Collection Time Receive d Time (Source) Location / / Volume Laterality Blood specimen BLOOD SPECIMEN / 05/21/2017 20:08 05/21 (specimen) Unknown EDT 20:28 EDT Maria Antonia Zimmerman MD CHEMISTRY & BLOOD GAS ORDERA BLES Performing Organization Address City/State/ZIP Code Phon e Number [facility] [address] [place] [address] SERVICES PERMANENT PACEMAKER PROCEDURE (05/21/2017 19:42 EDT) Anatomical Region Laterality Modality Other Specimen (Source) Anatomical Collection Method Collection Time Re ceived Time Location / / Volume Laterality 05/21/2017 19:42 EDT Narrative 05/21/2017 20:01 EDT *Cardiology* [address] [place] [address] Lead Revision Patient: David Mera ? Study Date: ?05/21/2017 ? Accession #: ? [id number] : ? 1950 Referring: Katia Mccallum Attending: [...] explant ??Lead implant ??Pericardiocentesis and pericardial dr suarez placement ??720 cc serosanginous drainage ??Minimal effusion [...] and the lead was extracted. A 7 Ukrainian safety sheath was advanced ov er the [...] topical skin adhesive. IMPLANTED HARDWARE: Implanted device: [employer] - [employer] Systemso PPM - Serial number: [id number]. Implanted originally on 05-02-2017 . LEAD PARAMETERS + + +---- + + Lead # ? 1 ? 1 ? 2 ? + + +---- + + Chamber ? RA ? RA ? RV ? + + +---- + + Date implanted ?? 05/02/2017 ? 05/21/2017 ? 05/02/2017 ? + + +---- + + Model ? [employer] Medtronic [facility] [place] [facility] 7742 ?? information ? 7721 ? Secure-59 [id number] ? + + +---- + + Serial number ?? [id number] ? [id number] ? [id number] ? + + +---- + + Location [...] results, any complications, and treatment plan to [facility] members and patient support persons who were present at the conclusi on of the procedure. POST PROCEDURAL DISPOSITION: Patient was admitted as an inpatient mello or to this procedure. Electronically signed by Seng Rand MD, PhD 05/21/2017 20:01 Procedure Note Seng Rand MD - 05/21/2017For matting of this note might be different from the original. *Cardiology* [address] [place] [address] Lead Revision Patient: David Mera Study Date: [...] and the lead was extracted. A 7 Ukrainian safety sheath was advanced ov er the [...] topical skin adhesive. IMPLANTED HARDWARE: Implanted device: [employer] - [employer] Systemso PPM - Serial number: [id number]. Implanted originally on 05-02-2017 . LEAD PARAMETERS + + +---- + + Lead # 1 1 2 + + +---- + + Chamber RA RA RV + + +---- + + Date implanted 05/02/2017 05/21/2017 05/02/2017 + + +---- + + Model [employer] Medtronic [facility] [place] [facility] 7742 information 7740 Secure-59 [id number] + + +---- + + Serial number [id number] + + +---- + + Location RA sarika MERCADO E Mid RV septum + + +---- [...] results, any complications, and treatment plan to [facility] members and patient support persons who were present at the conclusi on of the procedure. POST PROCEDURAL DISPOSITION: Patient was admitted as an inpatient mello or to this procedure. Electronically signed by Seng Rand MD, PhD 05/21/2017 20:01 Seng Rand MD PhD CARDIAC EP ORDERABLE S INPATIENT ADD-ON (05/21/2017 18:20 EDT) [facility] gist Method Time Signature Tests to be FREE 05/21/2017 [facility] added T4,TSH 18:16 [place] [id number] 05/21/2017 [facility] 05/21/2017 [facility] number TO [id number] 18:23 EDT [facility]ENTER LAB[facility] SERVICES Specimen Anatomical Collection Method Collection Time Receive d Time (Source) Location / / Volume Laterality OTHER / Unknown 05/21/2017 18:20 05/22/19 18 EDT 18:22 EDT Jayesh Garcia MD HEMATOLOGY & PF4 ORDERABLES Performing Organization Address City/[facility]/ZIP Code Phon e Number [facility] [address] [place] [address] SERVICES CREATININE, URINE RANDOM (05/21/2017 18:20 EDT) athologist Signature Creatinine, 26.2 mg/dl 05/21/2017 [facility] Urn [place] 21:25 EDT [facility]ENTER [facility] SERVICES Specimen Anatomical Collection Method Collection Time Receive d Time (Source) Location / / Volume Laterality Urine URINE / Unknown 05/21/2017 18:20 05/22/19 18 (substance) EDT 21:06 EDT Jayesh Garcia MD URINALYSIS ORDERABLES Performing Organization Address City/[facility]/ZIP [facility] Phon e Number [facility] [address] [place] [address] SERVICES PROTEIN, TOTAL, RANDOM, URINE (05/21/2017 18:20 EDT) P athologist Signature Tot Prot,Ur 21 mg/dl 05/21/2017 [facility] Random 21:25 EDT [facility]ENTER LAB[facility]AT[facility] SERVICES Specimen Anatomical Collection Method Collection Time Receive d Time (Source) Location / / Volume Laterality Urine URINE / Unknown 05/21/2017 18:20 05/22/19 18 (substance) EDT 21:06 EDT Jayesh Garcia MD URINALYSIS ORDERABLES Performing Organization Address City/State/ZIP Code Phon e Number [facility] [address] [place] [address] SERVICES ECHOCARDIOGRAM LIMITED (05/21/2017 18:19 EDT) Anatomical Region Laterality Modality Other Specimen (Source) Anatomical Collection Method Collection Time Re ceived Time Location / / Volume Laterality 05/21/2017 18:19 EDT Narrative 05/22/2017 8:34 EDT *Interpreting Group:* *[facility] Cardiology* [address] [place] [address] Date of study: 05/21/2017 Transthoracic Echocardiography M-mode, [...] stop time: ??07:33 PM. PERFORMING ?? [facility], STITCHER STANDARD MACHINE ??Emilia Corey RDCS *PROCEDURE DATA* Procedure information: [...] 08:34 Procedure Note Pierre Rubio MD - 05/22/2017Formatt ing of this note might be different from the original. *Interpreting Group:* *[facility] Cardiology* [address] [place] [address] Date of study: 05/21/2017 Transthoracic Echocardiography M-mode, [...] Test stop time: 07:33 PM. PERFORMING [facility], STITCHER STANDARD MACHINE Emilia Corey RDCS *PROCEDURE DATA* Procedure information: [...] signed by Pierre Rubio MD 05/22/2017 08:34 Tony Rosenberg MD CARDIAC ECHO ORDERABLES TSH (05/21/2017 14:02 EDT) athologist Signature TSH 0.60 0.47 - 4.68 05/21/2017 [facility] uIU/ml 19:42 EDT [facility]ENTER LAB[facility] SERVICES Specimen Anatomical Collection Method Collection Time Receive d Time (Source) Location / / Volume Laterality BLOOD SPECIMEN / 05/21/2017 14:02 018 Unknown EDT 14:12 EDT Maria Antonia Zimmerman MD CHEMISTRY & BLOOD GAS ORDERA BLES Performing Organization Address City/State/ZIP Code Phon e Number [facility] [address] [place] [address] SERVICES T4 FREE (05/21/2017 14:02 EDT) athologist Signature T4, Free 1.5 0.8 - 2.2 05/21/2017 [facility] ng/dl 19:29 EDT [facility] SERVICES Specimen Anatomical Collection Method Collection Time Receive d Time (Source) Location / / Volume Laterality BLOOD SPECIMEN / 05/21/2017 14:02 018 Unknown EDT 14:12 EDT Maria Antonia Zimmerman MD CHEMISTRY & BLOOD GAS ORDERA BLES Performing Organization Address City/[facility]/ZIP Code Phon e Number [facility] LABORATORY [address] [place] [address] SERVICES (ABNORMAL) ELECTROLYTES (05/21/2017 14:02 EDT) P athologist Signature Sodium 116 (LL) 136 - 145 05/21/2017 [facility] mEq/L 14:53 EDT [facility] LAB[facility] SERVICES Potassium 4.1 3.5 - 5.0 05/21/2017 [facility] mEq/L 14:53 EDT [facility]ENTER LAB[facility] SERVICES Chloride 78 (L) 96 - 110 05/21/2017 [facility] mEq/L 14:53 EDT [facility]ENTER LAB[facility] SERVICES CO2 28 22 - 32 05/21/2017 [facility] mEq/L 14:53 EDT [facility] SERVICES Specimen Anatomical Collection Method Collection Time Receive d Time (Source) Location / / Volume Laterality Blood specimen BLOOD SPECIMEN / 05/21/2017 14:02 05/21 (specimen) Unknown EDT 14:12 EDT Maria Antonia Zimmerman MD CHEMISTRY & BLOOD GAS ORDERA BLES Performing Organization Address City/[facility]/ZIP Code Phon e Number [facility] [address] [place] [address] SERVICES ECHOCARDIOGRAM (05/21/2017 10:30 EDT) Anatomical Region Laterality Modality Other Specimen (Source) Anatomical Collection Method Collection Time Re ceived Time Location / / Volume Laterality 05/21/2017 10:30 EDT Narrative 05/21/2017 10:48 EDT *Interpreting Group:* *[facility] Cardiology* [address] [place] [address] Date of study: 05/21/2017 Transthoracic Echocardiography M-mode, [...] MD ATTENDING ?Andres Luis MD PERFORMING ?? [facility], ORDERING ? Maria Antonia Zimmerman STITCHER STANDARD MACHINE ??Jose G Bauer REFERRING ?Xena Katiacarrington Rodas *PROCEDURE DATA* Procedure information: ??The patient was identified by two identifiers. [facility]. Pertinent images and digital data [...] ? 1 ? Legend: (L) ??and ??(H) ??cluade values outside sp ecified reference range. I have personally reviewed the images an d have reviewed and edited the reported findings. Electronically signed by Bobby Andrade MD 05/21/2017 10:48 Procedure Note Bobby Andrade MD - 05/21/2017For matting of this note might be different from the original. *Interpreting Group:* *[facility]* [address] [place] [address] Date of study: 05/21/2017 Transthoracic Echocardiography M-mode, [...] PERFORMING [facility] ORDERING Maria Antonia Zimmerman STITCHER STANDARD MACHINE Jose G Bauer Katelyn Doran *PROCEDURE DATA* Procedure information: The patient was i dentified by two identifiers. This study was interpreted by [facility]. Pertinent images and digital data are archived for permanent storage and are available for subsequent review. Study status: Routine. Transthoracic echocardiography. M-mode, complete 2D, complete spectral Doppler, and color Doppler. A T ransthoracic Echocardiogram was performed. Scanning was performed from t he parasternal, apical, subcostal, and suprasternal notch acoust ic windows. Images were obtained using an Quiblyq 13 cardiac ultrasound mach ine. Image quality [...] signed by Bobby Andrade MD 05/21/2017 10:48 Maria Antonia Zimmerman MD CARDIAC ECHO ORDERABLES (ABNORMAL) ELECTROLYTES (05/21/2017 9:55 EDT) athologist Signature Sodium 117 (LL) 136 - 145 05/21/2017 [facility] mEq/L 11:15 EDT CENTER LABORATORY SERVICES Potassium 3.7 3.5 - 5.0 05/21/2017 [facility] mEq/L 11:15 EDT CENTER LABORATORY SERVICES Chloride 77 (L) 96 - 110 05/21/2017 [facility] mEq/L 11:15 EDT CENTER LABORATORY SERVICES CO2 30 22 - 32 05/21/2017 [facility] mEq/L 11:15 EDT CENTER LABORATORY SERVICES Specimen Anatomical Collection Method Collection Time Receive d Time (Source) Location / / Volume Laterality Blood specimen BLOOD SPECIMEN / 05/21/2017 9:55 2017 (specimen) Unknown EDT 10:59 EDT Maria Antonia Zimmerman MD CHEMISTRY & BLOOD GAS ORDERA BLES Performing Organization Address City/State/ZIP Code Phon e Number [facility] [address] [place] [address] SERVICES EKG 12-LEAD (05/21/2017 7:12 EDT) Specimen (Source) Anatomical Collection Method Collection Time Re ceived Time Location / / Volume Laterality 05/21/2017 7:12 EDT Narrative [facility] EKG - 05/23/2017 15:0 4 EDT ? [facility] ? Test Date: ?2017-05-21 Pat Name: ? DAVID MERA ?Department: ?? JAME 5 ? Room: ? MW531 Gender: ? 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 [id number] : ?1950 ? Requested By: PRADIP MONET Order Number: [id number] ? Reading : ?? SENG PERSON SA, MD ? Measurements Intervals ?[place] ? Rate: ? 75 ? P: ?31 AK: ? 173 ?QRS: ?-73 QRSD: ? 183 ?T: ?174 QT: ? 527 ? QTc: ?590 ? Interpretive Statements ELECTRONIC VENTRICULAR PACEMAKER ABNORMAL RHYTHM ECG Automated Interpretation. ??Provider Int erpretation to follow. Compared to ECG 05/21/2017 01:25:47 Sinus rhythm no longer present I reviewed the tracing and have either a greed or edited the findings in this report. Electronically Signed On 8 15:04:53 EDT by SENG PERSON SA, MD. Procedure Note Seng Brody Sa, MD - 05/23/2017F ormatting of this note might be different from the original. 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 Provider Inter pretation to follow. Compared to ECG 05/21/2017 01:25:47 Sinus rhythm no longer present I reviewed the tracing and have either a greed or edited the findings in this report. Electronically Signed On 15:04:53 EDT by SENG PERSON SA, MD. Maria Antonia Zimmerman MD CARDIAC ECG ORDERABLES Performing Organization Address City/State/ZIP Code Phon e Number [facility] EKG INPATIENT ADD-ON (05/21/2017 6:55 EDT) [facility] Time Signature Tests to be MAGNESIUM 05/21/2017 [facility] added 6:53 EDT CENTER [place] [id number] 05/21/2017 [facility] problems 7:10 EDT CENTER LABORATORY SERVICES 05/21/2017 [facility] number 7:10 T [facility]ENTER LABORATORY SERVICES Specimen Anatomical Collection Method Collection Time Receive d Time (Source) Location / / Volume Laterality OTHER / Unknown 05/21/2017 6:55 8 7:10 EDT EDT Maria Antonia Zimmerman MD HEMATOLOGY & PF4 ORDERABLES Performing Organization Address City/State/ZIP Code Phon e Number [facility] [address] [place] [address] SERVICES INPATIENT ADD-ON (05/21/2017 6:40 EDT) [facility] Method Time Signature Tests to be ALT,ALK 05/21/2017 [facility] added PHOS,AST,T 6:38 EDT CENTER OTAL LABORATORY BILI,ALBUM SERVICES [place] for [id number] 05/21/2017 [facility] problems 6:50 EDT CENTER LABORATORY SERVICES 05/21/2017 [facility] number 6:50 EDT CENTER LAB[facility]AT[facility] SERVICES Specimen Anatomical Collection Method Collection Time Receive d Time (Source) Location / / Volume Laterality OTHER / Unknown 05/21/2017 6:40 8 6:49 EDT EDT Maria Antonia Zimmerman MD HEMATOLOGY & PF4 ORDERABLES Performing Organization Address City/State/ZIP Code Phon e Number [facility] [address] [place] [address] SERVICES MAGNESIUM (05/21/2017 5:57 EDT) athologist Signature Magnesium 1.8 1.7 - 2.8 05/21/2017 [facility] mg/dl 7:53 EDT CENTER LABORATORY SERVICES Specimen Anatomical Collection Method Collection Time Receive d Time (Source) Location / / Volume Laterality BLOOD SPECIMEN / 05/21/2017 5:57 05/22/19 18 6:09 Unknown EDT EDT Maria Antonia Zimmerman MD CHEMISTRY & BLOOD GAS ORDERA BLES Performing Organization Address City/State/ZIP Code Phon e Number [facility] [address] [place] [address] SERVICES BILIRUBIN, TOTAL (05/21/2017 5:57 EDT) athologist Signature Bilirubin, 0.6 <1.4 mg/dl 05/21/2017 [facility] Total 7:30 EDT CENTER LABORATORY SERVICES Specimen Anatomical Collection Method Collection Time Receive d Time (Source) Location / / Volume Laterality BLOOD SPECIMEN / 05/21/2017 5:57 05/22/19 18 6:09 Unknown EDT EDT Maria Antonia Zimmerman MD CHEMISTRY & BLOOD GAS ORDERA BLES Performing Organization Address City/State/ZIP Code Phon e Number [facility] [address] [place] [address] SERVICES AST (05/21/2017 5:57 EDT) athologist Signature AST 33 15 - 46 U/L 05/21/2017 [facility] 7:30 EDT CENTER LABORATORY SERVICES Specimen Anatomical Collection Method Collection Time Receive d Time (Source) Location / / Volume Laterality BLOOD SPECIMEN / 05/21/2017 5:57 05/22/19 18 6:09 Unknown EDT EDT Maria Antonia Zimmerman MD CHEMISTRY & BLOOD GAS ORDERA BLES Performing Organization Address City/State/ZIP Code Phon e Number [facility] [address] [place] [address] SERVICES ALT (05/21/2017 5:57 EDT) P athologist Signature ALT 39 21 - 72 U/L 05/21/2017 [facility] 7:30 EDT [facility] LAB[facility] SERVICES Specimen Anatomical Collection Method Collection Time Receive d Time (Source) Location / / Volume Laterality BLOOD SPECIMEN / 05/21/2017 5:57 05/22/19 18 6:09 Unknown EDT EDT Maria Antonia Zimmerman MD CHEMISTRY & BLOOD GAS ORDERA BLES Performing Organization Address City/[facility]/ZIP Code Phon e Number [facility] [address] [place] [address] SERVICES ALKALINE PHOSPHATASE (05/21/2017 5:57 EDT) athologist Signature Total Alkaline 81 38 - 126 05/21/2017 [facility] Phosphatase U/L 7:30 EDT [facility]ENTER LABORATORY SERVICES Specimen Anatomical Collection Method Collection Time Receive d Time (Source) Location / / Volume Laterality BLOOD SPECIMEN / 05/21/2017 5:57 05/22/19 18 6:09 Unknown EDT EDT Maria Antonia Zimmerman MD CHEMISTRY & BLOOD GAS ORDERA BLES Performing Organization Address City/State/ZIP Code Phon e Number [facility] [address] [place] [address] SERVICES (ABNORMAL) ALBUMIN (05/21/2017 5:57 EDT) P athologist Signature Albumin 3.0 (L) 3.4 - 4.9 05/21/2017 [facility] g/dl 7:30 EDT [facility]ENTER LABORATORY SERVICES Specimen Anatomical Collection Method Collection Time Receive d Time (Source) Location / / Volume Laterality BLOOD SPECIMEN / 05/21/2017 5:57 05/22/19 18 6:09 Unknown EDT EDT Maria Antonia Zimmerman MD CHEMISTRY & BLOOD GAS ORDERA BLES Performing Organization Address City/State/ZIP Code Phon e Number [facility] [address] [place] [address] SERVICES (ABNORMAL) ELECTROLYTES (05/21/2017 5:57 EDT) athologist Signature Sodium 117 (LL) 136 - 145 05/21/2017 [facility] mEq/L 6:47 EDT CENTER LABORATORY SERVICES Potassium 3.5 3.5 - 5.0 05/21/2017 [facility] mEq/L 6:47 EDT CENTER LABORATORY SERVICES Chloride 76 (L) 96 - 110 05/21/2017 [facility] mEq/L 6:47 EDT CENTER LABORATORY SERVICES CO2 31 22 - 32 05/21/2017 [facility] mEq/L 6:47 EDT CENTER LABORATORY SERVICES Specimen Anatomical Collection Method Collection Time Receive d Time (Source) Location / / Volume Laterality Blood specimen BLOOD SPECIMEN / 05/21/2017 5:57 2017 6:12 (specimen) Unknown EDT EDT Maria Antonia Zimmerman MD CHEMISTRY & BLOOD GAS ORDERA BLES Performing Organization Address City/[facility] Code Phon e Number [facility] [address] [place] [address] SERVICES (ABNORMAL) PROTIME (05/21/2017 5:57 EDT) athologist Signature Pro Time 16.3 (H) 10.3 - 13.4 05/21/2017 [facility] secs 6:30 EDT CENTER LABORATORY SERVICES Comment: NOTE NEW REFERENCE RANGE OF APR 03 2017 I.N.R. 1.4 (H) 0.9 - 1.1 Ratio 05/21/2017 6:30 EDT [facility] SERVICES Comment: Moderate Intensity Coumadin INR = 2.0-3. 0 Adjustments in anticoagulant therapy dos e should be based upon the INR and NOT the Pro Ti me. Specimen Anatomical Collection Method Collection Time Receive d Time (Source) Location / / Volume Laterality Blood specimen BLOOD SPECIMEN / 05/21/2017 5:57 2017 6:09 (specimen) Unknown EDT EDT Maria Antonia Zimmerman MD HEMATOLOGY & PF4 ORDERABLES Performing Organization Address City/[facility]/ZIP [facility] Phon e Number [facility] [address] [place] [address] SERVICES HIV 1/2 ANTIGEN AND ANTIBODY, 4TH GENERATION (05/21/2017 5:57 EDT) Analysis Performed At Patho logist Time Signature HIV 1/2 Negative Negative 05/21/2017 [facility] Antibody 11:32 EDT CENTER LABORATORY SERVICES Comment: Fourth generation assay performed on the Siemens Centaur. If acute HIV-1 infection is suspected in a high risk patient, submit plasma specime n for HIV-1 RNA quantification test. Specimen Anatomical Collection Method Collection Time Receive d Time (Source) Location / / Volume Laterality Blood specimen BLOOD SPECIMEN / 05/21/2017 5:57 2017 6:09 (specimen) Unknown EDT EDT Maria Antonia Zimmerman MD IMMUNOLOGY AND SEROLOGY ORDE RABKATE Performing Organization Address City/State/ZIP Code Phon e Number [facility] [address] [place] [address] SERVICES (ABNORMAL) BUN (05/21/2017 5:57 EDT) athologist Signature BUN 5 (L) 10 - 26 05/21/2017 [facility] mg/dl 6:34 [facility] CENTER LABORATORY SERVICES Specimen Anatomical Collection Method Collection Time Receive d Time (Source) Location / / Volume Laterality Blood specimen BLOOD SPECIMEN / 05/21/2017 5:57 2017 6:09 (specimen) Unknown EDT EDT Maria Antonia Zimmerman MD CHEMISTRY & BLOOD GAS ORDERA BLES Performing Organization Address City/State/ZIP Code Phon e Number [facility] [address] [place] [address] SERVICES (ABNORMAL) CREATININE (05/21/2017 5:57 EDT) Patholo gist Method Time Signature Creatinine 0.43 (L) 0.66 - 05/21/2017 [facility] 1.25 mg/dl 6:34 EDT CENTER LABORATORY SERVICES GFR, Calculated 120 >60 05/21/2017 [facility] ml/min/1.7 6:34 T CENTER 3m2 LABORATORY SERVICES Comment: eGFR calculated using CKD-EPI equation f or non Americans. Multiply eGFR by 1.16 for Americans. Specimen Anatomical Collection Method Collection Time Receive d Time (Source) Location / / Volume Laterality Blood specimen BLOOD SPECIMEN / 05/21/2017 5:57 2017 6:09 (specimen) Unknown EDT EDT Maria Antonia Zimmerman MD CHEMISTRY & BLOOD GAS ORDERA BLES Performing Organization Address City/State/ZIP Code Phon e Number [facility] LABORATORY [address] [place] [address] SERVICES (ABNORMAL) HEMAGRAM AND DIFFERENTIAL (05/21/2017 5:57 EDT) [facility] Method Time Signature WBC 6.90 4.0 - 05/21/2017 [facility] 10.4 6:30 EDT CENTER K/cmm LABORATORY SERVICES RBC 3.25 (L) 4.36 - 05/21/2017 [facility] 5.78 6:30 EDT CENTER M/cmm LABORATORY SERVICES Hemoglobin 10.9 (L) 13.8 - 05/21/2017 [facility] 17.3 6:30 EDT CENTER gm/dl LABORATORY SERVICES HCT 29.7 (L) 39.5 - 05/21/2017 [facility] 50.2 % 6:30 EDT CENTER LABORATORY SERVICES MCV 91 81 - 95 05/21/2017 [facility] fl 6:30 EDT CENTER LABORATORY SERVICES MCH 33.5 (H) 27.6 - 05/21/2017 [facility] 33.0 pg 6:30 EDT CENTER LABORATORY SERVICES MCHC 36.7 (H) 32.8 - 05/21/2017 [facility] 36.4 6:30 EDT CENTER gm/dl LABORATORY SERVICES RDW-CV 10.6 <14.2 % 05/21/2017 [facility] 6:30 EDT CENTER LABORATORY SERVICES RDW-SD 36.1 <46.0 fl 05/21/2017 [facility] 6:30 EDT CENTER LABORATORY SERVICES PLT 266 141 - 377 05/21/2017 [facility] K/cmm 6:30 EDT CENTER LABORATORY SERVICES MPV 10.7 9.5 - 05/21/2017 [facility] 12.7 fl 6:30 EDT CENTER LABORATORY SERVICES Neutrophils 61.6 % 05/21/2017 [facility] 6:30 EDT CENTER LABORATORY SERVICES Lymphocytes 19.0 % 05/21/2017 [facility] 6:30 EDT CENTER LABORATORY SERVICES Monocytes 16.7 % 05/21/2017 [facility] 6:30 EDT CENTER LABORATORY SERVICES Eosinophils 1.6 % 05/21/2017 [facility] 6:30 EDT CENTER LABORATORY SERVICES Basophils 0.7 % 05/21/2017 [facility] 6:30 EDT CENTER LABORATORY SERVICES Immature Grans 0.4 % 05/21/2017 [facility] 6:30 EDT CENTER LABORATORY SERVICES ABS Neutrophils 4.25 2.20 - 05/21/2017 [facility] 8.85 6:30 EDT CENTER K/cmm LABORATORY SERVICES ABS Lymphs 1.31 1.09 - 05/21/2017 [facility] 3.30 6:30 EDT CENTER K/cmm LABORATORY SERVICES ABS Monocytes 1.15 (H) 0.1 - 0.8 05/21/2017 [facility] K/cmm 6:30 EDT CENTER LABORATORY SERVICES ABS Eosinophils 0.11 0.03 - 05/21/2017 [facility] 0.61 6:30 EDT CENTER K/cmm LABORATORY SERVICES ABS Basophils 0.05 0.01 - 05/21/2017 [facility] 0.11 6:30 EDT CENTER K/cmm LABORATORY SERVICES ABS Immature 0.03 0 - 0.06 05/21/2017 [facility] Grans K/cmm 6:30 EDT CENTER LABORATORY SERVICES Type of Diff: Automated 05/21/2017 [facility] 6:30 EDT CENTER LABORATORY SERVICES Specimen Anatomical Collection Method Collection Time Receive d Time (Source) Location / / Volume Laterality Blood specimen BLOOD SPECIMEN / 05/21/2017 5:57 2017 6:09 (specimen) Unknown EDT EDT Maria Antonia Zimmerman MD PACKAGES & DNA PROBE ORDERAB LES Performing Organization Address City/State/ZIP Code Phon e Number [facility] [address] [place] [address] SERVICES (ABNORMAL) ELECTROLYTES (05/21/2017 3:28 EDT) P athologist Signature Sodium 116 (LL) 136 - 145 05/21/2017 [facility] mEq/L 4:01 EDT CENTER LABORATORY SERVICES Potassium 3.3 (L) 3.5 - 5.0 05/21/2017 [facility] mEq/L 4:01 EDT CENTER LABORATORY SERVICES Chloride 77 (L) 96 - 110 05/21/2017 [facility] mEq/L 4:01 EDT CENTER LABORATORY SERVICES CO2 31 22 - 32 05/21/2017 [facility] mEq/L 4:01 EDT CENTER LABORATORY SERVICES Specimen Anatomical Collection Method Collection Time Receive d Time (Source) Location / / Volume Laterality Blood specimen BLOOD SPECIMEN / 05/21/2017 3:28 2017 3:35 (specimen) Unknown EDT EDT Maria Antonia Zimmerman MD CHEMISTRY & BLOOD GAS ORDERA BLES Performing Organization Address City/State/ZIP Code Phon e Number [facility] [address] [place] [address] SERVICES EKG 12-LEAD (05/21/2017 1:25 EDT) Specimen (Source) Anatomical Collection Method Collection Time Re ceived Time Location / / Volume Laterality 05/21/2017 1:25 EDT Narrative [facility] EKG - 05/23/2017 10:3 5 EDT ? [facility] ? Test Date: ?2017-05-21 Pat Name: ? DAVID MERA ?Department: ?? [facility] 5 ? Room: ? MW531 Gender: ? 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 [id number] : ?1950 ? Requested By: PRADIP MONET Order Number: [id number] ? Martha OAKES: ?? PIERRE RUBIO MD ? Measurements Intervals ?[place]rose[place] ? Rate: ? 75 ? P: ?13 AK: ? 160 ?QRS: ?-81 QRSD: ? 185 [...] MD. Procedure Note Pierre Rubio MD - 05/23/2017Formatt ing of this note might be different from the original. 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 Electronically Signed On 8 10:35:38 EDT by PIERRE RUBIO MD. Maria Antonia Zimmerman MD CARDIAC ECG ORDERABLES Performing Organization Address City/State/ZIP Code Phon e Number [facility] EKG INPATIENT ADD-ON (05/21/2017 0:00 EDT) [facility] gist Method Time Signature Tests to be URINE OSM 05/20/2017 [facility] added 23:58 EDT CENTER LABORATORY SERVICES Number for Not Given 05/21/2017 [facility] problems 0:02 EDT CENTER LABORATORY SERVICES 05/21/2017 [facility] number 0:02 T CENTER LABORATORY SERVICES Specimen (Source) Anatomical Collection Method Collection Time Re ceived Time Location / / Volume Laterality OTHER / Unknown 05/21/2017 05/21/2017 0 :02 EDT Maria Antonia Zimmerman MD HEMATOLOGY & PF4 ORDERABLES Performing Organization Address City/State/ZIP Code Phon e Number [facility] LABORATORY [address] [place] [address] SERVICES OSMOLALITY, URINE (05/20/2017 23:45 EDT) athologist Signature Osmolality, Ur 251 150 - 05/21/2017 [facility] 1,150 0:15 EDT CENTER mos/kg LABORATORY SERVICES Specimen Anatomical Collection Method Collection Time Receive d Time (Source) Location / / Volume Laterality URINE / Unknown 05/20/2017 23:45 05/21/19 18 EDT 23:55 EDT Laly Kim MD URINALYSIS ORDERABLES Performing Organization Address City/State/ZIP Code Phon e Number [facility] LABORATORY [address] [place] [address] SERVICES SODIUM, URINE RANDOM (05/20/2017 23:45 EDT) athologist Signature Sodium, Ur 18.0 mEq/L 05/21/2017 [facility] 0:18 EDT CENTER LABORATORY SERVICES Specimen Anatomical Collection Method Collection Time Receive d Time (Source) Location / / Volume Laterality Urine URINE / Unknown 05/20/2017 23:45 05/21/19 18 (substance) EDT 23:55 EDT Laly Kim MD URINALYSIS ORDERABLES Performing Organization Address City/State/ZIP Code Phon e Number [facility] [address] [place] [address] SERVICES CREATININE, URINE RANDOM (05/20/2017 23:45 EDT) P athologist Signature Creatinine, 43.1 mg/dl 05/21/2017 [facility] Urn [place] 0:18 EDT CENTER LABORATORY SERVICES Specimen Anatomical Collection Method Collection Time Receive d Time (Source) Location / / Volume Laterality Urine URINE / Unknown 05/20/2017 23:45 05/21/19 18 (substance) EDT 23:55 EDT Laly Kim MD URINALYSIS ORDERABLES Performing Organization Address City/State/ZIP Code Phon e Number [facility] LABORATORY [address] [place] [address] SERVICES POCT US CARDIAC (05/20/2017 22:45 EDT) Anatomical Region Laterality Modality Other Specimen Anatomical Collection Method Collection Time Receive d Time (Source) Location / / Volume Laterality 05/20/2017 22:45 05/20/2017 EDT 23:51 EDT Narrative 05/20/2017 23:51 EDT [facility] - Ultrasound Exam Date: 05/20/2017 Exam Type: POCT US CARDIAC Coordinate Measuring Machine Technician: Laly Kim MD Attending: Laly Kim MD [...] by Laly Kim MD on May 20 at 11:50:56 PM This exam was performed and interpreted by the [facility] ED Staff Procedure Note Laly Kim MD - 05/20/2017F ormatting of this note might be different from the original. [facility] - Ultrasoun d Exam Date: 05/20/2017 Exam Type: POCT US CARDIAC Coordinate Measuring Machine Technician: Laly Kim MD Attending: Laly Kim MD [...] by Laly Kim MD on May 20 at 11:50:56 PM This exam was performed and interpreted by the [facility] ED Staff Laly Kim MD IMG POCT US ORDERABLES (ABNORMAL) BASIC METABOLIC PANEL (BMP) (05/20/2017 22:40 EDT) [facility] Method Time Signature Sodium 116 (LL) 136 - 145 05/20/2017 [facility]L [facility] Potassium 3.6 3.5 - 5.0 05/20/2017 [facility]L [facility] Chloride 74 (L) 96 - 110 05/20/2017 [facility]L [facility] CO2 32 22 - 32 05/20/2017 [facility] mEq/L 23:14 [facility] BUN 6 (L) 10 - 26 05/20/2017 [facility] mg/dl 23:14 [facility] Creatinine 0.44 (L) 0.66 - 05/20/2017 [facility] 1.25 mg/dl 23:14 [facility] GFR, Calculated 119 >60 05/20/2017 [facility] ml/min/1.7 23:14 [facility] 3m2 LABORATORY SERVICES Comment: eGFR calculated using CKD-EPI equation f or non Americans. Multiply eGFR by 1.16 for Americans. Calcium 8.7 8.5 - 10.5 05/20/2017 23:14 [facility] mg/dl LAB[facility] SERVICES Calculated Calcium 9.2 8.5 - 10.5 05/20/2017 23:14 [facility] mg/dl LABORATORY SERVICES Glucose, Serum 108 (H) 70 - 100 mg/dl 05/20/2017 23:14 [facility] Fasting? Unknown 05/20/2017 23:14 [facility] Specimen Anatomical Collection Method Collection Time Receive d Time (Source) Location / / Volume Laterality Blood specimen BLOOD SPECIMEN / 05/20/2017 22:40 05/20 (specimen) Unknown EDT 22:58 EDT Laly Kim MD CHEMISTRY & BLOOD GAS ORDERA BLES Performing Organization Address City/State/ZIP Code Phon e Number [facility] [address] [place] [address] SERVICES documented in this encounter Visit Diagnoses Diagnosis Hyponatremia Hyposmolality and/or hyponatremia Pericardial effusion Unspecified disease of pericardium Heart block Conduction disorder, unspecified Acute on chronic diastolic congestive he art failure ([facility] (HCC) Acute on chronic diastolic heart failure Acute pericarditis, unspecified type Hyponatremia Hyposmolality and/or hyponatremia Pericardial effusion Unspecified disease of pericardium Acute pericarditis Acute pericarditis, unspecified Acute on chronic diastolic congestive he art failure ([facility]) ([facility]) Acute on chronic diastolic heart failure documented in this encounter Administered Medications Inactive [...] [place] 05/22/17 at 0000, Last dose on Fri05/22/17 at 1600, Routine, Postprocedure Given 05/22/2017 8:20 [...] 0.6 mg 0947 (Given - Provider: Rupert Earl RN) 0.6 mg, oral, 2 TIMES DAILY, First dose on Fri05/27/17 at 0915, Until Discontinued, STAT ibuprofen (MOTRIN) tablet 600 mg (CANCELED) 1856 (Given - Provider: Rupert Earl RN) 0046 (Not Given - Provider: Omayra mason RN - Reason: Patient/family refused) 600 mg, oral, EVERY 6 HOURS, 2 doses, Fi rst dose on 05/26/17 at 1900, Last dose on Fri05/27/17 at [...] mg 1025 (Given - Pr ovider: Rupert Dandurand, RN) 650 mg, oral, EVERY 4 HOURS [...] 2 % cloth 1 Each 1 018 Diet Count Last Ordered Date First Ordered [...] Ordered Date NOTIFY PPS OF DISCHARGE COMPLETE 05/27/2017 CHANGE ATTENDING TO: 3 05/26/2017 05/21/2017 [facility]PS NOTIFICATION OF PATIENT ARRIVAL ON 8 UNIT UR PATIENT STATUS CHANGE 1 05/21/2017 Discharge Count Last Ordered Date First Ordered Date DISCHARGE PATIENT 1 05/27/2017 Legal Count Last Ordered Date First Ordered Date MISCELLANEOUS DISCHARGE INSTRUCTIONS 2 05/27/2017 documented in this encounter Care Teams System Validation Engineer Relationship Specialty Start Date End Date Katia Stone PA-C PCP - General 05/02/[address] [place] [phone] documented as of this encounter
--- OUTSIDE RECORDS SUMMARY | 2022-01-31 16:01 | XMS_ITS | Encounter Summary ---
:1950 Author Organization [facility] Address [address] [place] [address] Care Team Providers Name Role Phone Katia Stone PA-C Primary Care Provider Reason for Visit Reason Onset Date Comments Other 06/18/2017 discharged on .216 Follow-up 07/16/2017 Encounter Details Date Type Department Care Team Description 06/18/2017 Telephone [facility] Pierre Rubio (discharged on Cardiology - Chaitanya Wiggins MD .04.18); Follow-up 62 Chaitanya Fontenot [address] [facility], [address] [place] [address] (Wo rk) Social History Tobacco [...] - 07/16/2017 1310 EDT Riley WINSTON at [facility] called. States : Wt 2 [...] more clled in to [facility] in [place], stated colchicinehas run out- not sure if pt needs a refill or not. States he called pt's PCP in [place] and that MD wants to know if RN should draw labs? Please call back JOAN as he is with the pt now. Routing to Giovanni Sam NP and Belinda Eddy RN and will also go speak with one of them as well. Let Riley WINSTON know that Belinda Eddy would call back. Telephone Encounter - Isidra Telles - 07/16/2017 1257 EDT [facility] calling, Weight at 224, has been fluctuating Limited edema Has been winded Less endurance Cough has green secretions Some slight harsh breathing sounds Questions: Blood Work? Prednisone Taper seems to be off, will need a refill if continuing in the same manner Telephone Encounter - Belinda Falk RN - 06/18/2017 1630 EDT Spoke with Riley horta [facility] mentioned call placed to patient to confirm medication taking. Per patient he was taking Torsemide 40 mg daily and was not taking lasix. Per Riley this was differnet then what was discussed. Referred home Health to discuss care with Shailesh Torres MD in [place] and Katia Mccallum PA-C, Counts Include [address] [facility]. Telephone Encounter - Belinda Falk RN - 06/18/2017 1623 EDT Spoke with patient he is not taking lasix, he mentioned that this was stopped prior to him going into the hospital 05/20. Patient mentioned he is taking torsemide 40mg a daily. Telephone Encounter - Felicitas Pearce RN - 06/18/2017 1523 EDT Will route to Belinda Eddy RN to Dr Joy Telephone Encounter - Jose Osborne - 06/18/2017 1440 EDT Patient was discharged on 06.16.17. He has been feeling ok. [facility] is calling to discuss his [...] on filedocumented in this encounter Care Teams Film Vault Supervisor Relationship Specialty Start Date End Date Katia Stone PA-C PCP - General 05/02/[address] [place] [phone] documented as of this encounter
--- OUTSIDE RECORDS SUMMARY | 2022-01-31 16:01 | XMS_ITS | Encounter Summary ---
:1950 Author Organization [facility] Address [address] [place] [address] Care Team Providers Name Role Phone Katia Stone PA-C Primary Care Provider Reason for Referral Consult (Routine) - New Request Specialty Diagnoses / Procedures Referred By Contact Refer red To Contact Diagnoses Heart failure, unspecified HF chronicity, unspecified heart failure type (HCC- CMS) (HCC) Subacute effusive constrictive pericarditis Michael Pratt MD [address] [place] [phone] Referral ID Status Reason Start Expiration Visits Visits Date Date Requested Authorized [id number] New Request Specialty 06/16/2017 1 1 Services [...] effusive constrictive pericarditis Bg Atwood MD [address] [facility] 1 [place] [address] Referral ID Status Reason Start Expiration Visits Visits Date Date Requested Authorized [id number] Receiving Office Continuity of 1 1 to [...] Subacute effusive constrictive pericarditis Bg Atwood, - [address] [facility], [facility] [address] [address] 1 [place] [address] Referral ID Status Reason Start Expiration Visits Visits Date Date Requested Authorized [id number] New Request Specialty 06/16/2017 1 1 Services Required Question Answer I certify that this patient is under my 06/16/2017 care and that I, or another Medicare allowed practitioner (DO CHAMP, PACHECO) working with me, had a qykp-gz-fjpr encounter with this patient on this date: I further certify that the ddjz-km-ebgw Yes encounter was in whole or in [...] taxing effort: Skilled Care Requested Nursing asessment long term assessment needed related Response to new or changed medication to this encounter: Expected Discharge Date (Inpatient Only): 06/16/2017 Encounter Details Date Type Department Care Team Description 06/12/2017 - [facility] Nithya Rand MD PhD [address] [phone] Heart failure, unspecified HF chronicity , unspecified heart failure type (HCC-CMS) (Primary Dx); 06/16/2017 Encounter Cardiac/Telemetry Bg Atwood MD [address] [phone] Subacute effusive constrictive pericardi tis Unit Tony Rosenberg MD [address] [place] [address] [place] [phone] [address] [place], [place] [id number] Social History Tobacco Use Types Packs/Day Years [...] unspecified HF chronicity, unspecified heart failure type ([facility]) 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 Heart failure ([facility]) 06/12/2017 Resolved Hospital Problems Diagnosis Date Noted [...] orthopnea on a follow up exam at [facility]. He was transferred to [facility] due to concern for subacute constrictive pericarditis [...] Component Value Units Date/Time Bacterial Culture/Smear, Fluid [[id number]] Collected: 06/13/17 0826 Lab Status: Preliminary result Specimen: FOSMIC from Pleural Fluid Updated: 06/15/17 07 Gram Smear Result Polys present No bacteria seen Result No growth Bacterial Culture, Blood [[id number]] Collected: 06/12/172246 Lab Status: In process Specimen: Blood Updated: 06/12/172320 Bacterial Culture, Blood [[id number]] Collected: 06/12/172239 Lab Status: In process Specimen: [...] 05/01/2017 Discharge Follow Up Appointments Scheduled with [facility] Upcoming Appointments Aug 06, 2017 15:20 EDT Follow Up Return with Tony Rosenberg MD [facility] Cardiology [facility] (--) [address] [place] [phone] Appointments Outside of [facility] We Will Schedule Follow-up appointments and procedures Amb Consult/Follow Up Cardiology With Dr. Torres Reason for Request: f/u constrictive pericarditis Expected Discharge Date (Inpatient Only): 06/16/2017 Practice Site (External Referral Only): [facility] Authorizing Provider: Michael Pratt MD Amb Consult/Follow Up Primary Care Physician Reason for Request: f/u hospitalization for constrictive pericarditis Expected Discharge Date (Inpatient Only): 06/16/2017 Authorizing Provider: Bg Atwood MD Home Health Agency-Other I certify that this patient is under my care and that I, or another Medicare authorized non-physician practitioner (PA or CUT OFF WORKER) or resident working with me, had a wnud-xc-gfeu encounter with this patient on this date: 06/16/2017 I further certify that the isvn-kb-hwzl encounter was in whole or in part related to the reason the patient needs home health care.: Yes The patient has had a zara-jj-fyke visit by me or one of my [...] and ambulation Skilled Care Requested: Nursing asessment long term assessment needed related to this encounter: Response to new or changed medication Expected Discharge Date (Inpatient Only): 06/16/2017 Authorizing Provider: Bg Atwood MD Additional Information: Please follow up at [facility] with Dr. Tony Rosenberg on August 06, 2017 at 3:20 pm. If you have questions please call [phone]. Please follow up with your primary care physician, Katia Mccallum, on June 17, 2017 at 10:45 am. If you have any questions please call [phone]. Studies We Will Schedule Appointments We Recommend but have not been Scheduled None Michael Pratt MD 06/16/2017 15:18 I evaluated the patient and agree with the discharge summary as outlined above by Dr. Pratt. Mr. Farfna was feeling much better today. 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 BG ATWOOD MD Attending Plate Slitter And Inspector [facility] documented in this encounter Discharge Instructions AppointmentsDesi Thomas - 06/16/2017 12:01 EDT Please follow up at [facility] with Dr. Tony Rosenberg on August 06, 2017 at 3:20 pm. If you have questions please call [phone]. Please follow up with your primary care physician, Katia Mccallum, on June 17, 2017 at 10:45 am. If you have any questions please call [phone]. Discharge Instr - Other Melida Mas RN [...] (10) 07/15-07/28; 5mg (/2 of 10) 07/29-08/04 metoprolol (LOPRESSOR) 25 Take 1 Tab by mouth 60 Tab 3 0 06/16/2017 mg tablet 2 times daily. documented in this encounter Discharge Disposition Disposition Code Departure Means Destination Home-Health Care c documented in this encounter Progress Notes Desi Villatoro, TISH - 06/16/2017 1657 EDT CM DISCHARGE NOTE: Pt was discharged home with Home Health Services. D/C Summary was faxed to his Edge Beader at Dr. Mccallum's office. Desi Villatoro, RN #[id number] Tej Casanova MD - 06/15/2017 0816 EDT Cardiology Progress [...] heart failure? No Assessment/Plan Assessment/Plan David Juan Farfan??is a 66 y.o.??male??who presents as a transfer for pleural effusions in the setting of worsening cough, dyspnea, and orthopnea likely due to pericarditis. ?? 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 - Colchicine 0.6mg BID - Prednisone 40mg daily with taper in near future - STUDENT SUPPORT SERVICES DIRECTOR torsemide 40mg daily Hypokalemia/Hypomagnesemia -replete as needed [...] catheterization for tomorrow. BG ATWOOD MD Attending Plate Slitter And Inspector [facility] Michael Pratt MD - 06/14/2017 0646 EDT Cardiology [...] daily with taper in near future - STUDENT SUPPORT SERVICES DIRECTOR torsemide 40mg daily Pleural Effusions: Associated with [...] not lie flat. BG ATWOOD MD Attending Plate Slitter And Inspector [facility] Michael Pratt MD - 06/13/2017 1351 EDT Cardiology [...] into our system or repeat echo - STUDENT SUPPORT SERVICES DIRECTOR torsemide 40mg daily - Medical management pending [...] time Michael Pratt MD 06/13/2017 13:[address] - 06/13/2017 1326 EDT S/ RD attempted to meet with pt d/t and RN nutrition consult d/t unintended wt loss/decreased appetite. 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 O/ wt-100.7 kg Prior wt-~108 kg(05/24/17) Ht-180.3 [...] to d/c. Magalis Berger RD, CD X/cover #[id number] Ameena Teixeira - 06/13/2017 1159 EDT Initial Case Management/Social Work Assessment and Discharge Plan/Readmission Risk Assessment REASON FOR ADMISSION: Heart failure ([facility]) Patient understands reason for admission: Yes PATIENT CONTACT INFO VERIFIED: Yes PATIENT ADDRESS VERIFIED: Yes (David is staying with his son Mo temporarily in [place]. He did not know the address) LIVING [...] his sons have been driving him) CULTURAL, ALEVISM and/or LANGUAGE factors affecting health care/discharge planning: [...] [place] - [address] - [place], [place] - [address] [facility] [place] [phone] [facility] ([facility]) - [facility] [place] - [address] 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 He reports that he has only been drinking 1-2 beers/day. He denied any concern over his ETOH use. AMEENA TEIXEIRA 06/13/2017 11:59 For Ivelisse Rueda Desi Villatoro, RN - 06/13/2017 0971 EDT 06/13: Received a call from Yessica Card at [facility]. She is the patient's Edge Beader. I've faxed patient's H&P to her and will keep her up to date on patient's progress and projected d/c. Yessica Card, Edge Beader P: [phone] ext [phone] F: [phone] Desi Villatoro RN [facility] #[id number] Renetta Martini RN - 06/13/2017 0823 EDT Pt received [...] H&P Notes Denilson Shannon MD - 06/12/2017 4884 EDT Cardiology Admitting H&P Admit Date: 06/12/2017 [...] follow up performed by Dr. Rosenberg in [place] (has now completed 14 days of ibuprofen). After seeing Dr. Rosenberg yesterday and having an echo performed, he was noted to have worsening dyspnea, orthopnea, and increasing pleural effusions. He denies chest pain, diaphoresis, arm/jaw pain, wheezing, nausea/vomiting, change in bowels, or change in urination. He notes an ongoing cough with worsening abdominal pain from coughing so frequently. He was transferred to [facility] for consideration of thoracentesis and medical management. [...] tomorrow (either bedside or IR guided) - STUDENT SUPPORT SERVICES DIRECTOR torsemide 40mg daily - NPO after midnight [...] Addendum 66 yo man who lives in [facility] and follows with Dr. Rosenberg with [...] - team attempted to obtain echo from [facility] however unable to do so until AM - if no other etiology found consider switching to colchicine + prednisone - blood cultures Denilson Shannon MD Director Of Psychiatry Pager [phone] 06/12/2017 21:56 Associated attestation - Bg Atwood [...] thoracentesis as well. BG ATWOOD MD Attending Plate Slitter And Inspector [facility] documented in this encounter Procedure Notes Randy Ireland PA-C - 06/13/2017 0839 EDT IR Procedure Note Procedure: Requested U/S guided bilateral thoracentesis Date Performed: 06/13/2017 Radiologist/Flatbed Truck Driver(s):MD Andrea /MINGO Ireland Sedation/Anesthesia: local Time Out: [...] independently without difficulty. Dischargehome orders received. Action: [facility] called and report given. They are familiar with this pt. Tele and PIV removed. Pt dressed independently. Discharge paperwork reviewed with pt. Verbalizes good understanding. Response: awaiting ride for discharge home. Omayra Farley RN 06/16/2017 15:21 Plan of Care - Diamond Manzano RN - [...] maintain adequate ventilation will improve Outcome: Ongoing Plan of Care - Licha Strong RN - [...] with patient.Informed pt that he will have [facility] on Friday. R: Pt verbalized understanding of his plan of care. Plan of Care - Mila Mcallister RN - 06/14/2017 9418 EDT Problem: Daily Care Plan Goals Goal: [...] amounts. CTM MILA MCALLISTER RN 06/14/2017 15:51 Plan of Care - Hailee Cox RN - [...] of care. HAILEE Cox RN 06/14/2017 5:32 Plan of Care - Michelle Godinez RN - [...] status. Continue to reinforce education as appropriate. Plan of Care - Irena Restrepo - 06/13/2017 [...] this afternoon. Will continue to monitor. Irena Lauro 06/13/2017 11:30 Plan of Care - Ольга Greenwood RN - [...] to monitor. Ольга Greenwood RN 06/13/2017 3:20 Plan of Care - Michelle Godinez RN - [...] to room/call garza system. Admission database completed. quality assurance monitor body applied. Plan of care reviewed to include [...] this encounter Results ECG REPORT - SCANNED (06/29/2017 16:01 EDT) Specimen (Source) Anatomical Collection Method Collection Time Re ceived Time Location / / Volume Laterality 06/29/2017 16:01 EDT Narrative This result has an attachment that is no t available. Scan 2 Core Maker Helper PROCEDURE/MINOR SURGICAL ORD ERABLES IMPLANT RECORD - SCANNED (06/19/2017 14:15 EDT) Specimen (Source) Anatomical Collection Method Collection Time Re ceived Time Location / / Volume Laterality 06/19/2017 14:15 EDT Narrative This result has an attachment that is no t available. Scan 2 Core Maker Helper PROCEDURE/MINOR SURGICAL ORD ERABLES ECG REPORT - SCANNED (06/19/2017 14:15 EDT) Specimen (Source) Anatomical Collection Method Collection Time Re ceived Time Location / / Volume Laterality 06/19/2017 14:15 EDT Narrative This result has an attachment that is no t available. Scan 2 Core Maker Helper PROCEDURE/MINOR SURGICAL ORD ERABLES MAGNESIUM (06/16/2017 5:39 EDT) athologist Signature Magnesium 1.9 1.7 - 2.8 06/16/2017 [facility] mg/dl 6:48 EDT [facility]ENTER LABOR[facility] SERVICES Specimen Anatomical Collection Method Collection Time Receive d Time (Source) Location / / Volume Laterality Blood specimen BLOOD SPECIMEN / 06/16/2017 5:39 2017 6:15 (specimen) Unknown EDT EDT Michael Pratt MD CHEMISTRY & BLOOD GAS ORDERA BLES Performing Organization Address City/State/ZIP Code Phon e Number [facility] [address] [place] [phone] SERVICES (ABNORMAL) ELECTROLYTES (06/16/2017 5:39 EDT) athologist Signature Sodium 133 (L) 136 - 145 06/16/2017 [facility] mEq/L 6:48 EDT [facility] Potassium 3.7 3.5 - 5.0 06/16/2017 [facility] mEq/L 6:48 EDT [facility] Chloride 90 (L) 96 - 110 06/16/2017 [facility] mEq/L 6:48 EDT [facility] CO2 33 (H) 22 - 32 06/16/2017 [facility] mEq/L 6:48 EDT [facility] Specimen Anatomical Collection Method Collection Time Receive d Time (Source) Location / / Volume Laterality Blood specimen BLOOD SPECIMEN / 06/16/2017 5:39 2017 6:15 (specimen) Unknown EDT EDT Michael Pratt MD CHEMISTRY & BLOOD GAS ORDERA BLES Performing Organization Address City/State/ZIP Code Phon e Number [facility] [address] [place] [address] SERVICES (ABNORMAL) HEMAGRAM (06/16/2017 5:39 EDT) P athologist Signature WBC 10.81 (H) 4.0 - 10.4 06/16/2017 [facility] K/cmm 6:28 EDT [facility] RBC 3.83 (L) 4.36 - 06/16/2017 [facility] 5.78 M/cmm 6:28 EDT [facility] Hemoglobin 12.4 (L) 13.8 - 06/16/2017 [facility] 17.3 gm/dl 6:28 EDT [facility] HCT 35.6 (L) 39.5 - 06/16/2017 [facility] 50.2 % 6:28 EDT [facility] MCV 93 81 - 95 fl 06/16/2017 [facility] 6:28 EDT [facility] MCH 32.4 27.6 - 06/16/2017 [facility] 33.0 pg 6:28 EDT [facility] MCHC 34.8 32.8 - 06/16/2017 [facility] 36.4 gm/dl 6:28 EDT [facility] RDW-CV 11.9 <14.2 % 06/16/2017 [facility] 6:28 EDT [facility] RDW-SD 40.8 <46.0 fl 06/16/2017 [facility] 6:28 EDT [facility] PLT 204 141 - 377 06/16/2017 [facility] K/cmm 6:28 EDT [facility] MPV 12.4 9.5 - 12.7 06/16/2017 [facility] fl 6:28 EDT [facility] Specimen Anatomical Collection Method Collection Time Receive d Time (Source) Location / / Volume Laterality Blood specimen BLOOD SPECIMEN / 06/16/2017 5:39 2017 6:15 (specimen) Unknown EDT EDT Michael Pratt MD HEMATOLOGY & PF4 ORDERABLES Performing Organization Address City/State/ZIP Code Phon e Number [facility] [address] [place] [address] SERVICES CREATININE (06/16/2017 5:39 EDT) athologist Signature Creatinine 0.67 0.66 - 06/16/2017 [facility] 1.25 mg/dl 6:48 EDT [facility] LAB[facility] SERVICES GFR, Calculated 100 >60 06/16/2017 [facility] ml/min/1.7 6:48 EDT CENTER 3m2 LABORATORY SERVICES Comment: eGFR calculated using CKD-EPI equation f or non Americans. Multiply eGFR by 1.16 for Americans. Specimen Anatomical Collection Method Collection Time Receive d Time (Source) Location / / Volume Laterality Blood specimen BLOOD SPECIMEN / 06/16/2017 5:39 2017 6:15 (specimen) Unknown EDT EDT Michael Pratt MD CHEMISTRY & BLOOD GAS ORDERA BLES Performing Organization Address City/State/ZIP Code Phon e Number [facility] [address] [place] [address] SERVICES MAGNESIUM (06/15/2017 5:31 EDT) athologist Signature Magnesium 1.7 1.7 - 2.8 06/15/2017 [facility] mg/dl 6:24 EDT [facility] SERVICES Specimen Anatomical Collection Method Collection Time Receive d Time (Source) Location / / Volume Laterality Blood specimen BLOOD SPECIMEN / 06/15/2017 5:31 2017 5:48 (specimen) Unknown EDT EDT Michael Pratt MD CHEMISTRY & BLOOD GAS ORDERA BLES Performing Organization Address City/State/ZIP Code Phon e Number [facility] [address] [place] [address] SERVICES (ABNORMAL) ELECTROLYTES (06/15/2017 5:31 EDT) athologist Signature Sodium 133 (L) 136 - 145 06/15/2017 [facility] mEq/L 6:24 EDT [facility] Potassium 3.4 (L) 3.5 - 5.0 06/15/2017 [facility] mEq/L 6:24 EDT [facility] Chloride 90 (L) 96 - 110 06/15/2017 [facility] mEq/L 6:24 EDT [facility] CO2 34 (H) 22 - 32 06/15/2017 [facility] mEq/L 6:24 EDT [facility] Specimen Anatomical Collection Method Collection Time Receive d Time (Source) Location / / Volume Laterality Blood specimen BLOOD SPECIMEN / 06/15/2017 5:31 2017 5:48 (specimen) Unknown EDT EDT Michael Pratt MD CHEMISTRY & BLOOD GAS ORDERA BLES Performing Organization Address City/State/ZIP Code Phon e Number [facility] [address] [place] [address] SERVICES (ABNORMAL) HEMAGRAM (06/15/2017 5:31 EDT) P athologist Signature WBC 11.63 (H) 4.0 - 10.4 06/15/2017 [facility] K/cmm 5:58 EDT [facility] SERVICES RBC 3.51 (L) 4.36 - 06/15/2017 [facility] 5.78 M/cmm 5:58 EDT [facility] Hemoglobin 11.4 (L) 13.8 - 06/15/2017 [facility] 17.3 gm/dl 5:58 EDT [facility] HCT 33.1 (L) 39.5 - 06/15/2017 [facility] 50.2 % 5:58 EDT [facility] MCV 94 81 - 95 fl 06/15/2017 [facility] 5:58 EDT [facility] SERVICES MCH 32.5 27.6 - 06/15/2017 [facility] 33.0 pg 5:58 EDT [facility] SERVICES MCHC 34.4 32.8 - 06/15/2017 [facility] 36.4 gm/dl 5:58 EDT [facility] SERVICES RDW-CV 12.0 <14.2 % 06/15/2017 [facility] 5:58 EDT [facility] RDW-SD 41.4 <46.0 fl 06/15/2017 [facility] 5:58 EDT [facility] LAB[facility] PLT 240 141 - 377 06/15/2017 [facility] K/cmm 5:58 EDT [facility] MPV 11.1 9.5 - 12.7 06/15/2017 [facility] fl 5:58 EDT [facility] Specimen Anatomical Collection Method Collection Time Receive d Time (Source) Location / / Volume Laterality Blood specimen BLOOD SPECIMEN / 06/15/2017 5:31 2017 5:48 (specimen) Unknown EDT EDT Michael Pratt MD HEMATOLOGY & PF4 ORDERABLES Performing Organization Address City/State/ZIP Code Phon e Number [facility] [address] [place] [address] SERVICES (ABNORMAL) CREATININE (06/15/2017 5:31 EDT) [facility] Method Time Signature Creatinine 0.65 (L) 0.66 - 06/15/2017 [facility] 1.25 mg/dl 6:24 EDT [facility]ENTER LABORATORY SERVICES GFR, Calculated 101 >60 06/15/2017 [facility] ml/min/1.7 6:24 EDT CENTER 3m2 LABORATORY SERVICES Comment: eGFR calculated using CKD-EPI equation f or non Americans. Multiply eGFR by 1.16 for Americans. Specimen Anatomical Collection Method Collection Time Receive d Time (Source) Location / / Volume Laterality Blood specimen BLOOD SPECIMEN / 06/15/2017 5:31 2017 5:48 (specimen) Unknown EDT EDT Michael Pratt MD CHEMISTRY & BLOOD GAS ORDERA BLES Performing Organization Address City/[facility]/ZIP Code Phon e Number [facility] [address] [place] [address] SERVICES INPATIENT ADD-ON (06/14/2017 8:00 EDT) [facility] Signature Tests to be PLEASE ADD ON 06/14/2017 [facility] added DIFFERENTIAL TO 7:59 EDT CENTER CBC LABORATORY SERVICES Number for M5 06/14/2017 [facility] problems 8:01 EDT [facility] LAB[facility]AT[facility] SERVICES 06/14/2017 [facility] number 8:01 EDT [facility] Specimen Anatomical Collection Method Collection Time Receive d Time (Source) Location / / Volume Laterality OTHER / Unknown 06/14/2017 8:00 8 8:01 EDT EDT Catherine Walker MD HEMATOLOGY & PF4 ORDERABLES Performing Organization Address City/State/ZIP Code Phon e Number [facility] [address] [place] [address] SERVICES (ABNORMAL) DIFFERENTIAL (06/14/2017 5:32 EDT) Patholo gist Method Time Signature Neutrophils 72.2 % 06/14/2017 [facility] 8:47 EDT [facility] SERVICES Lymphocytes 14.9 % 06/14/2017 [facility] 8:47 EDT [facility]ENTER LAB[facility] SERVICES Monocytes 12.1 % 06/14/2017 [facility] 8:47 EDT CENTER LABORATORY SERVICES Eosinophils 0.1 % 06/14/2017 [facility] 8:47 EDT [facility] LAB[facility] SERVICES Basophils 0.2 % 06/14/2017 [facility] 8:47 EDT [facility]ENTER LABOR[facility] SERVICES Immature Grans 0.5 % 06/14/2017 [facility] 8:47 EDT CENTER LABORATORY SERVICES ABS Neutrophils 8.96 (H) 2.20 - 06/14/2017 [facility] 8.85 8:47 EDT CENTER K/cm LABORATORY SERVICES ABS Lymphs 1.85 1.09 - 06/14/2017 [facility] 3.30 8:47 EDT CENTER K/[facility] LABORATORY SERVICES ABS Monocytes 1.50 (H) 0.1 - 0.8 06/14/2017 [facility] K/cmm 8:47 EDT CENTER LABORATORY SERVICES ABS Eosinophils 0.01 (L) 0.03 - 06/14/2017 [facility] 0.61 8:47 EDT CENTER K/[facility] LABORATORY SERVICES ABS Basophils 0.02 0.01 - 06/14/2017 [facility] 0.11 8:47 EDT CENTER /[facility] LABORATORY SERVICES ABS Immature 0.06 0 - 0.06 06/14/2017 [facility] Grans K/cm 8:47 EDT CENTER LABORATORY SERVICES Type of Diff: Automated 06/14/2017 [facility] 8:47 EDT CENTER LABORATORY SERVICES Specimen Anatomical Collection Method Collection Time Receive d Time (Source) Location / / Volume Laterality BLOOD SPECIMEN / 06/14/2017 5:32 06/15/19 18 5:53 Unknown EDT EDT Michael Pratt MD HEMATOLOGY & PF4 ORDERABLES Performing Organization Address City/State/ZIP Code Phon e Number [facility] [address] [place] [address] SERVICES MAGNESIUM (06/14/2017 5:32 EDT) P athologist Signature Magnesium 2.0 1.7 - 2.8 06/14/2017 [facility] mg/dl 6:25 EDT [facility] Specimen Anatomical Collection Method Collection Time Receive d Time (Source) Location / / Volume Laterality Blood specimen BLOOD SPECIMEN / 06/14/2017 5:32 2017 5:53 (specimen) Unknown EDT EDT Michael Pratt MD CHEMISTRY & BLOOD GAS ORDERA BLES Performing Organization Address City/[facility]/ZIP Code Phon e Number [facility] [address] [place] [address] SERVICES (ABNORMAL) ELECTROLYTES (06/14/2017 5:32 EDT) athologist Signature Sodium 133 (L) 136 - 145 06/14/2017 [facility] mEq/L 6:25 EDT [facility] Potassium 3.6 3.5 - 5.0 06/14/2017 [facility] mEq/L 6:25 EDT [facility] Chloride 91 (L) 96 - 110 06/14/2017 [facility] mEq/L 6:25 EDT [facility] CO2 31 22 - 32 06/14/2017 [facility] mEq/L 6:25 EDT [facility] Specimen Anatomical Collection Method Collection Time Receive d Time (Source) Location / / Volume Laterality Blood specimen BLOOD SPECIMEN / 06/14/2017 5:32 2017 5:53 (specimen) Unknown EDT EDT Michael Pratt MD CHEMISTRY & BLOOD GAS ORDERA BLES Performing Organization Address City/[facility]/ZIP Code Phon e Number [facility] [address] [place] [address] SERVICES (ABNORMAL) HEMAGRAM (06/14/2017 5:32 EDT) P athologist Signature WBC 12.41 (H) 4.0 - 10.4 06/14/2017 [facility] K/cmm 6:00 EDT [facility] RBC 3.64 (L) 4.36 - 06/14/2017 [facility] 5.78 M/cmm 6:00 EDT [facility] Hemoglobin 11.9 (L) 13.8 - 06/14/2017 [facility] 17.3 gm/dl 6:00 EDT [facility] HCT 33.8 (L) 39.5 - 06/14/2017 [facility] 50.2 % 6:00 EDT [facility] MCV 93 81 - 95 fl 06/14/2017 [facility] 6:00 EDT [facility] MCH 32.7 27.6 - 06/14/2017 [facility] 33.0 pg 6:00 EDT [facility] MCHC 35.2 32.8 - 06/14/2017 [facility] 36.4 gm/dl 6:00 EDT [facility] SERVICES RDW-CV 11.9 <14.2 % 06/14/2017 [facility] 6:00 EDT [facility] RDW-SD 40.7 <46.0 fl 06/14/2017 [facility] 6:00 EDT [facility] PLT 243 141 - 377 06/14/2017 [facility] K/cmm 6:00 EDT [facility] MPV 11.7 9.5 - 12.7 06/14/2017 [facility] fl 6:00 EDT [facility] SERVICES Specimen Anatomical Collection Method Collection Time Receive d Time (Source) Location / / Volume Laterality Blood specimen BLOOD SPECIMEN / 06/14/2017 5:32 2017 5:53 (specimen) Unknown EDT EDT Michael Pratt MD HEMATOLOGY & PF4 ORDERABLES Performing Organization Address City/State/ZIP Code Phon e Number [facility] [address] [place] [address] SERVICES (ABNORMAL) CREATININE (06/14/2017 5:32 EDT) [facility] Method Time Signature Creatinine 0.60 (L) 0.66 - 06/14/2017 [facility] 1.25 mg/dl 6:25 EDT [facility]ENTER LAB[facility] SERVICES GFR, Calculated 105 >60 06/14/2017 [facility] ml/min/1.7 6:25 EDT CENTER 3m2 LABORATORY SERVICES Comment: eGFR calculated using CKD-EPI equation f or non Americans. Multiply eGFR by 1.16 for Americans. Specimen Anatomical Collection Method Collection Time Receive d Time (Source) Location / / Volume Laterality Blood specimen BLOOD SPECIMEN / 06/14/2017 5:32 2017 5:53 (specimen) Unknown EDT EDT Michael Pratt MD CHEMISTRY & BLOOD GAS ORDERA BLES Performing Organization Address City/State/ZIP Code Phon e Number [facility] [address] [place] [address] SERVICES INPATIENT ADD-ON (06/13/2017 15:00 EDT) [facility] Method Time Signature Tests to be PLEASE ADD ON 06/13/2017 [facility] added HEMATOCRIT TO 14:56 EDT CENTER PLEURAL FLUID LABORATORY OBTAINED TODAY SERVICES (06/13). [place] [id number] 06/13/2017 [facility] problems 15:05 EDT [facility] 06/13/2017 [facility] number 15:15 EDT [facility] Comment: Corrected on 06/13 AT 1515: Pre viously reported as [id number] Specimen Anatomical Collection Method Collection Time Receive d Time (Source) Location / / Volume Laterality OTHER / Unknown 06/13/2017 15:00 06/14/19 18 EDT 15:02 EDT Catherine Walker MD HEMATOLOGY & PF4 ORDERABLES Performing Organization Address City/[facility]/ZIP Code Phon e Number [facility] [address] [place] [address] SERVICES INPATIENT ADD-ON (06/13/2017 15:00 EDT) [facility] Time Signature Tests to be TOTAL 06/13/2017 [facility] added PROTEIN,LD 14:55 EDT CENTER [place] [id number] 06/13/2017 [facility] problems 15:01 EDT [facility] 06/13/2017 [facility] number 15:02 EDT [facility] Comment: Corrected on 06/13 AT 1502: Pre viously reported as [id number] Specimen Anatomical Collection Method Collection Time Receive d Time (Source) Location / / Volume Laterality OTHER / Unknown 06/13/2017 15:00 06/14/19 18 EDT 15:01 EDT Catherine Walker MD HEMATOLOGY & PF4 ORDERABLES Performing Organization Address City/[facility] Phon e Number [facility] [address] [place] [address] CHEST (PE) PROTOCOL W CONTRAST (06/13/2017 10:41 EDT) Anatomical Region Laterality Modality Other Specimen Anatomical Collection Method Collection Time Receive d Time (Source) Location / / Volume Laterality 06/13/2017 10:41 06/13/2017 EDT 11:23 EDT Narrative 06/13/2017 11:23 EDT CTA CHEST W CONTRAST [...] effusion Procedure Note Umang Dugan MD - 06/13/2017Formatti ng of this note might be different from the original. CTA CHEST W CONTRAST (PE) PROTOCOL 2017 [...] fusion and decrease of left pleural effusion Rahat Aviles MD IMG CT ORDERABLES RAD US DOPPLER LOWER EXTREMITY VENOUS BILATERAL (06/13/2017 10:20 EDT) Anatomical Region Laterality Modality Other Specimen Anatomical Collection Method Collection Time Receive d Time (Source) Location / / Volume Laterality 06/13/2017 10:20 06/13/2017 EDT 11:50 EDT Narrative 06/13/2017 11:50 EDT RAD US DOPPLER LOWER [...] extremities. Procedure Note Lakhwinder Huang MD - 06/13/2017Form atting of this note might be different from the original. RAD US DOPPLER LOWER EXTREMITY VENOUS BI [...] venous thrombosis in the bilateral lower extremities. Rahat Aviles MD IMG US ORDERABLES IR THORACENTESIS (06/13/2017 8:45 EDT) Anatomical Region Laterality Modality Other Specimen Anatomical Collection Method Collection Time Receive d Time (Source) Location / / Volume Laterality 06/13/2017 8:45 06/13/2017 EDT 10:51 EDT Narrative 06/13/2017 10:51 EDT IR THORACENTESIS ??06/13/2017 8:45 [...] sterile technique and under local anesthesia, a 8-Hungarian thoracentesis catheter was advanced into the left [...] analysis. Procedure Note William Mendez MD - 06/13/2017Fo rmatting of this note might be different from the original. IR THORACENTESIS 06/13/2017 8:45 AM Clinical History/Comments: [...] sterile technique and under local anesthesia, a 8-Hungarian thoracentesis catheter was advanced into the left [...] was sent to the lab for analysis. Michael Pratt MD IMG IR ORDERABLES HEMATOCRIT, BODY FLUID (06/13/2017 8:26 EDT) athologist Signature Hematocrit,Bod <3.0 % 06/13/2017 [facility] [place] 16:01 [facility] LABORATORY SERVICES Specimen Anatomical Collection Method Collection Time Receive d Time (Source) Location / / Volume Laterality PLEURAL FLUID / 06/13/2017 8:26 8 8:49 Unknown EDT EDT Michael Pratt MD GEN LAB UNIT COLLECT ORDERAB LES Performing Organization Address City/State/ZIP Code Phon e Number [facility] [address] [place] [address] SERVICES FLUID DIFFERENTIAL (06/13/2017 8:26 EDT) Component Value Ref Test Analysis Performed At Patholo gist Range Method Time Signature Neutrophils, 33 % 06/13/2017 [facility] Fluid 12:15 [facility] SERVICES Lymphocytes, 50 % 06/13/2017 [facility] Fluid 12:15 [facility] LAB[facility]ATORY SERVICES [place]ro, 12 % 06/13/2017 [facility] Fluid 12:15 [facility] SERVICES Mesothelial 5 % 06/13/2017 [facility] 12:15 [facility] SERVICES Fluid Comment Rev'd by 06/13/2017 [facility] Pathologist 12:15 [facility] LABORATORY SERVICES Specimen Anatomical Collection Method Collection Time Receive d Time (Source) Location / / Volume Laterality PLEURAL FLUID / 06/13/2017 8:26 8 8:49 Unknown EDT EDT Michael Pratt MD GEN LAB UNIT COLLECT ORDERAB LES Performing Organization Address City/State/ZIP Code Phon e Number [facility] [address] [place] [address] SERVICES PH, PLEURAL FLUID (06/13/2017 8:26 EDT) P athologist Signature Pleural Fluid 7.42 06/13/2017 [facility] pH 9:12 EDT [facility] LAB[facility] SERVICES Comment: Reference range: Pleural fluid Exudate: 7.30-7.45 Transudate: 7.40-7.55 A pleural fluid pH <7.30 is generally associated with a complicated parapneumo velasquez effusion, empyema, connective tissue dis ease of the pleura or malignant effusion. Specimen Anatomical Collection Method Collection Time Receive d Time (Source) Location / / Volume Laterality PLEURAL FLUID / 06/13/2017 8:26 8 9:00 Unknown EDT EDT Michael Pratt MD GEN LAB UNIT COLLECT ORDERAB LES Performing Organization Address City/[facility]/ZIP Code Phon e Number [facility] [address] [place] [address] SERVICES BACTERIAL CULTURE/SMEAR, FLUID (06/13/2017 8:26 EDT) [facility] Method Time Signature Gram Smear Polys 06/13/2017 [facility] Result present 10:07 EDT [facility]ENTER LAB[facility] SERVICES Gram Smear No bacteria 06/13/2017 [facility] Result seen 10:07 [facility] SERVICES Result No growth 06/15/2017 [facility] 7:29 EDT [facility] SERVICES Specimen Anatomical Collection Method Collection Time Receive d Time (Source) Location / / Volume Laterality FOSMIC PLEURAL FLUID / 06/13/2017 8:26 8 9:19 Unknown EDT EDT Comment: Left Michael Pratt MD MICROBIOLOGY - GENERAL ORDER IRWIN Performing Organization Address City/State/ZIP Code Phon e Number [facility] [address] [place] [address] SERVICES FLUID CELL COUNT (06/13/2017 8:26 EDT) [facility] gist Method Time Signature RBC, Fluid 44,000 /cmm 06/13/2017 [facility] 10:31 EDT [facility]ENTER LAB[facility]ORY SERVICES Nucleated 11,202 /cmm 06/13/2017 [facility] Cells 10:31 EDT [facility]ENTER LAB[facility]ATORY SERVICES Fluid Comment MODERATELY 06/13/2017 [facility] BLOODY, 10:31 EDT CENTER MODERATELY LABORATORY CLOUDY SERVICES Specimen Anatomical Collection Method Collection Time Receive d Time (Source) Location / / Volume Laterality Body fluid PLEURAL FLUID / 06/13/2017 8:26 8 8:49 (substance) Unknown EDT EDT Michael Pratt MD GEN LAB UNIT COLLECT ORDERAB LES Performing Organization Address City/[facility]/ZIP Code Phon e Number [facility] [address] [place] [address] SERVICES TOTAL PROTEIN, FLUID (06/13/2017 8:26 EDT) athologist Signature Protein, Fluid 5.2 g/dl 06/13/2017 [facility] 10:18 EDT [facility] Comment: Reference Range: Pleural fluid specimen (specimen) Exudate > 3.0 g/dl Pleural fluid specimen (specimen) Transudate <3.0 g/dl Peritoneal fluid sample (specimen) Serum ascites to albumin gradient (SAGG) superior to total protein content in differentiating causes of effusion. Pleural fluid specimen (specimen) Specimen Anatomical Collection Method Collection Time Receive d Time (Source) Location / / Volume Laterality FOSCHM PLEURAL FLUID / 06/13/2017 8:26 8 8:51 Unknown EDT EDT Michael Pratt MD GEN LAB UNIT COLLECT ORDERAB LES Performing Organization Address City/State/ZIP Code Phon e Number [facility] [address] [place] [address] SERVICES LDH, FLUID (06/13/2017 8:26 EDT) athologist Signature LDH, Fluid 654 U/L 06/13/2017 [facility] 10:18 EDT CENTER LABORATORY SERVICES Comment: Pleural fluid specimen (specimen) Reference Range: Suggestive of exudate if fluid cholesterol is > 45 mg/dl or fluid LDH is greater than 0.45 times the upper limit of normal serum LDH trevore ls. Peritoneal fluid sample (specimen) No reference range available Pleural fluid specimen (specimen) Specimen Anatomical Collection Method Collection Time Receive d Time (Source) Location / / Volume Laterality FOSCHM PLEURAL FLUID / 06/13/2017 8:26 8 8:51 Unknown EDT EDT Michael Pratt MD GEN LAB UNIT COLLECT ORDERAB LES Performing Organization Address City/State/ZIP Code Phon e Number [facility] [address] [place] [address] SERVICES GLUCOSE, FLUID (06/13/2017 8:26 EDT) athologist Signature Glucose, Fluid 88 mg/dl 06/13/2017 [facility] 10:18 EDT [facility] SERVICES Comment: Reference Range: Pleural fluid specimen (specimen) Low glucose is accepted as <60 mg/dl or pleural fluid to serum glucose ratio of <0.5. Peritoneal fluid sample (specimen) Low glucose is generally accepted as <50 mg/dl. Pleural fluid specimen (specimen) Specimen Anatomical Collection Method Collection Time Receive d Time (Source) Location / / Volume Laterality [facility] PLEURAL FLUID / 06/13/2017 8:26 8 8:51 Unknown EDT EDT Michael Pratt MD GEN LAB UNIT COLLECT ORDERAB LES Performing Organization Address City/State/ZIP Code Phon e Number [facility] [address] [place] [phone] SERVICES CREATININE, FLUID (06/13/2017 8:26 EDT) athologist [facility] Creatinine, 0.57 mg/dl 06/13/2017 [facility] Fluid 10:18 EDT [facility]ENTER LAB[facility] SERVICES Comment: Reference Range: Pleural fluid specimen (specimen) No reference range available Peritoneal fluid sample (specimen) No reference range available Drain device specimen (specimen) No reference range available Pleural fluid specimen (specimen) Specimen Anatomical Collection Method Collection Time Receive d Time (Source) Location / / Volume Laterality [facility] PLEURAL FLUID / 06/13/2017 8:26 8 8:51 Unknown EDT EDT Michael Pratt MD GEN LAB UNIT COLLECT ORDERAB LES Performing Organization Address City/State/ZIP Code Phon e Number [facility] [address] [place] [phone] SERVICES PROTEIN, TOTAL (06/13/2017 6:08 EDT) athologist Signature Total Protein 7.2 6.3 - 8.2 06/13/2017 [facility] g/dl 15:23 EDT [facility]ENTER LAB[facility] SERVICES Specimen Anatomical Collection Method Collection Time Receive d Time (Source) Location / / Volume Laterality BLOOD SPECIMEN / 06/13/2017 6:08 06/14/19 18 6:38 Unknown EDT EDT Michael Pratt MD CHEMISTRY & BLOOD GAS ORDERA BLES Performing Organization Address City/State/ZIP Code Phon e Number [facility] [address] [place] [address] SERVICES LDH (06/13/2017 6:08 EDT) athologist Signature LDH 428 313 - 618 06/13/2017 [facility] U/L 15:23 EDT [facility] LAB[facility] SERVICES Specimen Anatomical Collection Method Collection Time Receive d Time (Source) Location / / Volume Laterality BLOOD SPECIMEN / 06/13/2017 6:08 06/14/19 18 6:38 Unknown EDT EDT Michael Pratt MD CHEMISTRY & BLOOD GAS ORDERA BLES Performing Organization Address City/[facility]/ZIP Code Phon e Number [facility] [address] [place] [address] SERVICES (ABNORMAL) MAGNESIUM (06/13/2017 6:08 EDT) athologist Signature Magnesium 1.4 (L) 1.7 - 2.8 06/13/2017 [facility] mg/dl 7:07 EDT [facility] LAB[facility] SERVICES Specimen Anatomical Collection Method Collection Time Receive d Time (Source) Location / / Volume Laterality Blood specimen BLOOD SPECIMEN / 06/13/2017 6:08 2017 6:38 (specimen) Unknown EDT EDT Michael Pratt MD CHEMISTRY & BLOOD GAS ORDERA BLES Performing Organization Address City/State/ZIP Code Phon e Number [facility] [address] [place] [address] SERVICES (ABNORMAL) ELECTROLYTES (06/13/2017 6:08 EDT) athologist Signature Sodium 132 (L) 136 - 145 06/13/2017 [facility] mEq/L 7:07 EDT [facility] SERVICES Potassium 3.6 3.5 - 5.0 06/13/2017 [facility] mEq/L 7:07 EDT [facility] SERVICES Chloride 91 (L) 96 - 110 06/13/2017 [facility] mEq/L 7:07 EDT [facility] SERVICES CO2 29 22 - 32 06/13/2017 [facility] mEq/L 7:07 EDT [facility] SERVICES Specimen Anatomical Collection Method Collection Time Receive d Time (Source) Location / / Volume Laterality Blood specimen BLOOD SPECIMEN / 06/13/2017 6:08 2017 6:38 (specimen) Unknown EDT EDT Michael Pratt MD CHEMISTRY & BLOOD GAS ORDERA BLES Performing Organization Address City/State/ZIP Code Phon e Number [facility] [address] [place] [address] SERVICES (ABNORMAL) HEMAGRAM (06/13/2017 6:08 EDT) P athologist Signature WBC 9.97 4.0 - 10.4 06/13/2017 [facility] K/cmm 6:52 EDT [facility]ENTER LAB[facility]AT[facility] SERVICES RBC 3.76 (L) 4.36 - 06/13/2017 [facility] 5.78 M/cmm 6:52 EDT [facility]ENTER LAB[facility] SERVICES Hemoglobin 12.2 (L) 13.8 - 06/13/2017 [facility] 17.3 gm/dl 6:52 EDT [facility]ENTER LAB[facility] SERVICES HCT 34.9 (L) 39.5 - 06/13/2017 [facility] 50.2 % 6:52 EDT [facility]ENTER LAB[facility]AT[facility] SERVICES MCV 93 81 - 95 fl 06/13/2017 [facility] 6:52 EDT [facility] LAB[facility] SERVICES MCH 32.4 27.6 - 06/13/2017 [facility] 33.0 pg 6:52 EDT [facility]ENTER LAB[facility] SERVICES MCHC 35.0 32.8 - 06/13/2017 [facility] 36.4 gm/dl 6:52 EDT [facility]ENTER LAB[facility]AT[facility] SERVICES RDW-CV 11.8 <14.2 % 06/13/2017 [facility] 6:52 EDT [facility]ENTER [facility] SERVICES RDW-SD 40.4 <46.0 fl 06/13/2017 [facility] 6:52 EDT [facility]ENTER LAB[facility]AT[facility] SERVICES PLT 223 141 - 377 06/13/2017 [facility] K/cmm 6:52 EDT [facility]ENTER LAB[facility] SERVICES MPV 11.9 9.5 - 12.7 06/13/2017 [facility] fl 6:52 EDT [facility]ENTER LABORATORY SERVICES Specimen Anatomical Collection Method Collection Time Receive d Time (Source) Location / / Volume Laterality Blood specimen BLOOD SPECIMEN / 06/13/2017 6:08 2017 6:38 (specimen) Unknown EDT EDT Michael Pratt MD HEMATOLOGY & PF4 ORDERABLES Performing Organization Address City/[facility]/ZIP Code Phon e Number [facility] [address] [place] [address] SERVICES (ABNORMAL) CREATININE (06/13/2017 6:08 EDT) Patholo gist Method Time Signature Creatinine 0.58 (L) 0.66 - 06/13/2017 [facility] 1.25 mg/dl 7:07 EDT CENTER LABORATORY SERVICES GFR, Calculated 106 >60 06/13/2017 [facility] ml/min/1.7 7:07 T CENTER 3m2 LABORATORY SERVICES Comment: eGFR calculated using CKD-EPI equation f or non Americans. Multiply eGFR by 1.16 for Americans. Specimen Anatomical Collection Method Collection Time Receive d Time (Source) Location / / Volume Laterality Blood specimen BLOOD SPECIMEN / 06/13/2017 6:08 2017 6:38 (specimen) Unknown EDT EDT Michael Pratt MD CHEMISTRY & BLOOD GAS ORDERA BLES Performing Organization Address City/[facility]/ZIP Code Phon e Number [facility] [address] [place] [address] SERVICES (ABNORMAL) PROTIME (06/13/2017 6:08 EDT) P athologist Signature Pro Time 14.0 (H) 10.3 - 13.4 06/13/2017 [facility] secs 7:00 EDT CENTER LABORATORY SERVICES Comment: NOTE NEW REFERENCE RANGE OF APR 03 2017 I.N.R. 1.2 (H) 0.9 - 1.1 Ratio 06/13/2017 7:00 EDT [facility] SERVICES Comment: Moderate Intensity Coumadin INR = 2.0-3. 0 Adjustments in anticoagulant therapy dos e should be based upon the INR and NOT the Pro Ti me. Specimen Anatomical Collection Method Collection Time Receive d Time (Source) Location / / Volume Laterality Blood specimen BLOOD SPECIMEN / 06/13/2017 6:08 2017 6:38 (specimen) Unknown EDT EDT Michael Pratt MD HEMATOLOGY & PF4 ORDERABLES Performing Organization Address City/[facility]/ZIP Code Phon e Number [facility] [address] [place] [phone] SERVICES BACTERIAL CULTURE, BLOOD (06/12/2017 22:47 EDT) athologist Signature Result No growth 06/17/2017 [facility] 7:12 EDT CENTER LABORATORY SERVICES Specimen Anatomical Collection Method Collection Time Receive d Time (Source) Location / / Volume Laterality Blood specimen BLOOD SPECIMEN / 06/12/2017 22:47 06/12 (specimen) Unknown EDT 23:20 EDT Comment: Left~Antecubital Denilson Shannon MD MICROBIOLOGY - GENERAL ORDER IRWIN Performing Organization Address City/[facility] Phon e Number [facility] [address] [place] [address] SERVICES (ABNORMAL) D-DIMER (06/12/2017 22:40 EDT) athologist Signature D-Dimer 724 (H) <230 ng/mL 06/12/2017 [facility] 23:14 EDT CENTER LABORATORY SERVICES Comment: CUTOFF VALUE FOR THE EXCLUSION OF DVT an d PE: 230 ng/mL D-dimer units Any use of the age-adjusted cutoff value is a post-analytic modification of this FDA-approved test and is considered off -label use of the test result. [facility] laboratory does not have literature to support the validity of an age-adjusted cutoff for our specific ass ay. Specimen Anatomical Collection Method Collection Time Receive d Time (Source) Location / / Volume Laterality Blood specimen BLOOD SPECIMEN / 06/12/2017 22:40 06/12 (specimen) Unknown EDT 22:57 EDT Rahat Aviles MD HEMATOLOGY & PF4 ORDERABLES Performing Organization Address [facility] Phon e Number [facility] [address] [place] [address] SERVICES BACTERIAL CULTURE, BLOOD (06/12/2017 22:40 EDT) athologist Signature Result No growth 06/17/2017 [facility] 7:12 EDT CENTER LABORATORY SERVICES Specimen Anatomical Collection Method Collection Time Receive d Time (Source) Location / / Volume Laterality Blood specimen BLOOD SPECIMEN / 06/12/2017 22:40 06/12 (specimen) Unknown EDT 23:20 EDT Comment: Right~Antecubital Denilson Shannon MD MICROBIOLOGY - GENERAL ORDER IRWIN Performing Organization Address City/State/ZIP Code Phon e Number [facility] [address] [place] [address] SERVICES INPATIENT ADD-ON (06/12/2017 21:30 EDT) [facility] Method Time Signature Tests to be NT PRO BNP 06/12/2017 [facility] added 21:28 EDT [facility]ENTER LABORAT[facility] SERVICES Number for Not Given 06/12/2017 [facility] problems 21:31 EDT [facility]ENTER LAB[facility]ATORY SERVICES 06/12/2017 [facility] number 21:31 EDT [facility] Specimen Anatomical Collection Method Collection Time Receive d Time (Source) Location / / Volume Laterality OTHER / Unknown 06/12/2017 21:30 06/13/19 18 EDT 21:31 EDT Denilson Shannon MD HEMATOLOGY & PF4 ORDERABLES Performing Organization Address City/[facility]/ZIP Code Phon e Number [facility] [address] [place] [address] SERVICES CHEST PA AND LATERAL (06/12/2017 20:56 EDT) Anatomical Region Laterality Modality Other Specimen Anatomical Collection Method Collection Time Receive d Time (Source) Location / / Volume Laterality 06/12/2017 20:56 06/12/2017 EDT 21:12 EDT Narrative 06/12/2017 21:12 EDT CHEST PA AND LATERAL [...] aeration. Procedure Note Iva Juárez MD - 06/12/2017Forma tting of this note might be different from the original. CHEST PA AND LATERAL 06/12/2017 8:56 PM [...] improvement in left l ower lobe aeration. Michael Pratt MD IMG DIAGNOSTIC IMAGING ORDER IRWIN INPATIENT ADD-ON (06/12/2017 19:20 EDT) [facility] gist Method Time Signature Tests to be HIGH 06/12/2017 [facility] added SENSITIVITY CRP 19:17 [facility] [place] [id number] 06/12/2017 [facility] problems 19:24 [facility] SERVICES 06/12/2017 [facility] number 19:24 [facility] SERVICES Specimen Anatomical Collection Method Collection Time Receive d Time (Source) Location / / Volume Laterality OTHER / Unknown 06/12/2017 19:20 06/13/19 18 EDT 19:21 EDT Michael Pratt MD HEMATOLOGY & PF4 ORDERABLES Performing Organization Address City/State/ZIP Code Phon e Number [facility] [address] [place] [address] SERVICES (ABNORMAL) NT PRO BNP (06/12/2017 18:37 EDT) athologist Signature NT Pro BNP 1,380 (H) <300 pg/ml 06/12/2017 [facility] 22:19 EDT [facility]ENTER LAB[facility]ATORY SERVICES Comment: Reference Range: NT-proBNP values less than 300 [...] / / Volume Laterality BLOOD SPECIMEN / 06/12/2017 18:37 018 Unknown EDT 18:58 EDT Catherine Walker MD CHEMISTRY & BLOOD GAS ORDERA BLES Performing Organization Address City/State/ZIP Code Phon e Number [facility] [address] [place] [address] SERVICES HIGH SENSITIVITY C-REACTIVE PROTEIN (CARDIOVASCULAR DISEASE) (06/12/2017 18:37 EDT) athologist Signature High Sensitivity 83.3 mg/L 06/13/2017 [facility] CRP 10:08 EDT CENTER LABORATORY SERVICES Comment: Reference Range: <1.0 mg/L Low risk 1.0-3.0 mg/L Average risk >3.0 mg/L High risk >10.0 mg/L Acute inflammation Specimen Anatomical Collection Method Collection Time Receive d Time (Source) Location / / Volume Laterality BLOOD SPECIMEN / 06/12/2017 18:37 018 Unknown EDT 18:58 EDT Catherine Walker MD CHEMISTRY & BLOOD GAS ORDERA BLES Performing Organization Address City/State/ZIP Code Phon e Number [facility] [address] [place] [phone] SERVICES TROPONIN I (06/12/2017 18:37 EDT) athologist Signature Troponin I <0.034 <0.034 06/12/2017 [facility] (ng/mL) ng/ml 19:49 EDT CENTER LABORATORY SERVICES Specimen Anatomical Collection Method Collection Time Receive d Time (Source) Location / / Volume Laterality Blood specimen BLOOD SPECIMEN / 06/12/2017 18:37 06/12 (specimen) Unknown EDT 18:58 EDT Catherine Walker MD CHEMISTRY & BLOOD GAS ORDERA BLES Performing Organization Address City/State/ZIP Code Phon e Number [facility] [address] [place] [address] SERVICES (ABNORMAL) HEMAGRAM (06/12/2017 18:37 EDT) athologist Signature WBC 17.10 (H) 4.0 - 10.4 06/12/2017 [facility] K/cmm 19:04 EDT CENTER LABORATORY SERVICES RBC 3.70 (L) 4.36 - 06/12/2017 [facility] 5.78 M/cmm 19:04 EDT [facility]ENTER LABORATORY SERVICES Hemoglobin 12.2 (L) 13.8 - 06/12/2017 [facility] 17.3 gm/dl 19:04 EDT [facility]ENTER LABORATORY SERVICES HCT 34.1 (L) 39.5 - 06/12/2017 [facility] 50.2 % 19:04 EDT [facility]ENTER LABORATORY SERVICES MCV 92 81 - 95 fl 06/12/2017 [facility] 19:04 EDT [facility]ENTER LABORATORY SERVICES MCH 33.0 27.6 - 06/12/2017 [facility] 33.0 pg 19:04 EDT [facility]ENTER LABORATORY SERVICES MCHC 35.8 32.8 - 06/12/2017 [facility] 36.4 gm/dl 19:04 EDT [facility]ENTER LABORATORY SERVICES RDW-CV 11.6 <14.2 % 06/12/2017 [facility] 19:04 EDT [facility]ENTER LABORATORY SERVICES RDW-SD 39.4 <46.0 fl 06/12/2017 [facility] 19:04 EDT [facility]ENTER LABORATORY SERVICES PLT 206 141 - 377 06/12/2017 [facility] K/cmm 19:04 EDT [facility]ENTER LABORATORY SERVICES MPV 12.3 9.5 - 12.7 06/12/2017 [facility] fl 19:04 EDT CENTER LABORATORY SERVICES Specimen Anatomical Collection Method Collection Time Receive d Time (Source) Location / / Volume Laterality Blood specimen BLOOD SPECIMEN / 06/12/2017 18:37 06/12 (specimen) Unknown EDT 18:58 EDT Catherine Walker MD HEMATOLOGY & PF4 ORDERABLES Performing Organization Address City/[facility]/ZIP Code Phon e Number [facility] [address] [place] [address] SERVICES BUN (06/12/2017 18:37 EDT) P athologist Signature BUN 10 10 - 26 06/12/2017 [facility] mg/dl 19:34 EDT CENTER LABORATORY SERVICES Specimen Anatomical Collection Method Collection Time Receive d Time (Source) Location / / Volume Laterality Blood specimen BLOOD SPECIMEN / 06/12/2017 18:37 06/12 (specimen) Unknown EDT 18:58 EDT Catherine Walker MD CHEMISTRY & BLOOD GAS ORDERA BLES Performing Organization Address City/State/ZIP Code Phon e Number [facility] [address] [place] [address] SERVICES (ABNORMAL) ELECTROLYTES (06/12/2017 18:37 EDT) P athologist Signature Sodium 129 (L) 136 - 145 06/12/2017 [facility] mEq/L 19:34 [facility] LABORATORY SERVICES Potassium 3.4 (L) 3.5 - 5.0 06/12/2017 [facility] mEq/L 19:34 [facility] SERVICES Chloride 91 (L) 96 - 110 06/12/2017 [facility] mEq/L 19:34 [facility] LABORATORY SERVICES CO2 27 22 - 32 06/12/2017 [facility] mEq/L 19:34 [facility] LABORATORY SERVICES Specimen Anatomical Collection Method Collection Time Receive d Time (Source) Location / / Volume Laterality Blood specimen BLOOD SPECIMEN / 06/12/2017 18:37 06/12 (specimen) Unknown EDT 18:58 EDT Catherine Walker MD CHEMISTRY & BLOOD GAS ORDERA BLES Performing Organization Address City/State/ZIP Code Phon e Number [facility] [address] [place] [address] SERVICES (ABNORMAL) CREATININE (06/12/2017 18:37 EDT) Patholo gist Method Time Signature Creatinine 0.54 (L) 0.66 - 06/12/2017 [facility] 1.25 mg/dl 19:34 T CENTER LABORATORY SERVICES GFR, Calculated 109 >60 06/12/2017 [facility] ml/min/1.7 19:34 [facility] 3m2 LABORATORY SERVICES Comment: eGFR calculated using CKD-EPI equation f or non Americans. Multiply eGFR by 1.16 for Americans. Specimen Anatomical Collection Method Collection Time Receive d Time (Source) Location / / Volume Laterality Blood specimen BLOOD SPECIMEN / 06/12/2017 18:37 06/12 (specimen) Unknown EDT 18:58 EDT Catherine Walker MD CHEMISTRY & BLOOD GAS ORDERA BLES Performing Organization Address City/State/ZIP Code Phon e Number [facility] [address] [place] [address] SERVICES EKG 12-LEAD (06/12/2017 18:27 EDT) Specimen (Source) Anatomical Collection Method Collection Time Re ceived Time Location / / Volume Laterality 06/12/2017 18:27 EDT Narrative [facility] E[facility] - 06/29/2017 15:5 7 EDT ? [facility] ? Test Date: ?2017-06-12 Pat Name: ? DAVID FARFAN ?Department: ?? Subha 5 ? Room: ? ME505 Gender: ? Male ? Orthopedics Pediatric Physician: ?? [id number] : ?1950 ? Requested By: GISELA CROWDER G Order Number: [id number] ? Reading MD: ?? SENG PERSON SA MD ? Measurements Intervals ?[place] ? Rate: ? 120 ?P: ?165 TX: ? 235 ?QRS: ?-22 QRSD: ? 176 [...] Procedure Note Seng Brody Sa, MD - 06/29/2017F ormatting of this note might be different from the original. [facility] Test Date: 2017-06-12 Pat Name: DAVID FARFAN Department: Vira Chao [place] [facility]: Male Orthopedics Pediatric Physician: [id number] : 1950 Requested By: GISELA Dunn Order Number: [id number] Martha MD: Nithya PERSON SA, MD Measurements Intervals [place] Rate: 120 P: 165 TX: 235 QRS: -22 QRSD: 176 T: 171 [...] 15:57:35 EDT by SENG PERSON SA, MD. Catherine Walker MD CARDIAC ECG ORDERABLES Performing Organization Address City/State/ZIP Code Phon e Number [facility] E[facility] documented in this encounter Visit Diagnoses Diagnosis Subacute effusive constrictive pericardi tis - Primary Constrictive pericarditis Heart failure, unspecified HF chronicity , unspecified heart failure type (HCC-CMS) (HCC) Subacute effusive constrictive pericardi tis Constrictive pericarditis Heart failure (HCC) Heart failure, unspecified documented in this encounter Administered Medications Inactive [...] 30 Minutes, NOW X1, 1 dose, On 06/15/17 at 0845, Routine metoprolol (LOPRESSOR) tablet [...] mg, oral, DAILY, First dose on [place] 18 at 1900, Until Discontinued, STAT Given 06/15/2017 [...] EVERY 8 HOURS, First dose on [place] 18 at 1815, Until Discontinued, Routine torsemide (DEMADEX) [...] (ISOPTIN) 2.5 mg/mL injection 1 06/14/19 18 Diet Count Last Ordered Date First Ordered Date DISCHARGE DIET 3 06/16/2017 Nursing Count Last Ordered Date First Ordered Date ACTIVITY INSTRUCTIONS 1 06/16/2017 BATHING INSTRUCTIONS 1 06/16/2017 SUSPEND TELEMETRY FOR PROCEDURE 1 06/13/2017 CIWA SCORING 1 06/12/2017 INSERT SALINE LOCK 1 06/12/2017 MEASURE WEIGHT 1 06/12/2017 NOTIFY TEN PIN BOWLING CENTRE MANAGER 1 06/12/2017 VTE PHARMACOLOGIC PROPHYLAXIS CURRENTLY 1 [...] 06/16/2017 documented in this encounter Care Teams Loop Sewer Relationship Specialty Start Date End Date Katia Stone, PABijalC PCP - General 05/02/17 [address] [place] [id number] documented as of this encounter
--- OUTSIDE RECORDS SUMMARY | 2022-01-31 16:01 | XMS_ITS | Encounter Summary ---
:1950 Author Organization [facility] Address [address] [place] [id number] Care Team Providers Name Role Phone Katia Stone PA-C Primary Care Provider Reason for Visit Reason Comments Shortness of Breath Encounter Details Date Type Department Care Team Description 06/11/2017 Office Visit [facility] Tony Rosenberg ([facility] - Nicolasa Jasmine MD breath) (Primary Dx) [address] [address] [address] [place] [address] Social History Tobacco Use Types [...] Rosenberg MD - 06/11/2017 0000 EDT [facility] C[facility] - EBRO PROGRESS / FOLLOWUP NOTE - 06/11/2017 PROBLEM LIST: 1. Third-degree heart block. a. Status post dual chamber pacemaker insertion. b. Pericardial effusion. c. Pacemaker generator lead repositioning and pericardiocentesis. 2. Large pleural effusions. 3. Hypertension. 4. Hyponatremia. SUBJECTIVE: Mr Mera was seen at the [facility] after his recent hospitalization at the [facility] for AV block. He had [...] substantial bilateral pleural effusions. Echocardiogram done in [facility] shows preserved LV systolic function. No significant [...] Mr Mera to be admitted to the [facility] tomorrow for bilateral thoracentesis. Tony Rosenberg MD 03 51 PM - Tony Rosenberg MD ln Dictation ID: [id number] cc: Shailesh Torres MD, [address] [address] Katia Mccallum PA-C, [place] [address] [address] [place] [address] documented in this encounter Plan of Treatment Not on filedocumented as of this encounter Visit Diagnoses Diagnosis SOB (shortness of breath) - Primary Shortness of breath documented in this encounter Care Teams Spring Former Machine Relationship Specialty Start Date End Date Katia Stone PA-C PCP - General 05/02/[address] [place] [address] [address] [place] [id number] documented as of this encounter
--- OUTSIDE RECORDS SUMMARY | 2022-01-31 16:01 | XMS_ITS | Encounter Summary ---
:1950 Author Organization [facility] Address [address] [place] [address] Care Team Providers Name Role Phone Katia Stone PA-C Primary Care Provider Reason for Visit Reason Onset Date Comments Other 05/29/2017 Encounter Details Date Type Department Care Team Description 05/29/2017 Telephone [facility] Cardiology - Melly Mariee RN Other Chaitanya Oconnor [place], [place] [address] Social History Tobacco Use [...] NP. Requested call back with any questions Telephone Encounter - Daija Mariee RN - 05/29/2017 1018 EDT Spoke with Yessica, at [facility] She spoke with pt today and he had 2 episodes of sharp pains that lasted seconds at the pacemaker site Yessica- RN would like a call back with plan She states pt has had a 11# weight gain, denies shortness of breath Daughter in law takes care of meds- [phone] Spoke with pt- he had 2 quick [...] on filedocumented in this encounter Care Teams Aquatic Facility Manager Relationship Specialty Start Date End Date Katia Stone PA-C PCP - General 05/02/17 [address] [place] [id number] documented as of this encounter
--- OUTSIDE RECORDS SUMMARY | 2022-01-31 16:01 | XMS_ITS | Encounter Summary ---
:[address] [facility] Address [address] [place] [address] Care Team Providers Name Role Phone Katia Stone PA-C Primary Care Provider Encounter Details Date Type Department Care Team Description 06/11/2017 Results Only Imaging [facility] Alan Pratt MD Adult Primary Care - [address] [place] [id number] [place], [place] [id number] [phone] Social History Tobacco Use Types Packs/Day Years [...] ceived Time Location / / Volume Laterality 06/11/2017 13:57 EDT Narrative 06/11/2017 13:57 EDT This is an outside study - there is no r eport. Procedure Note PARK NATURALIST, IMAGING - 06/13/2017Formatt ing of this note might be different from the original. This is an outside study - there is no r eport. Michael Pratt MD IMG OTHER IMAGING ORDERABLES documented in this encounter Visit Diagnoses Not on filedocumented in this encounter Care Teams Knit Tubing Dyer Relationship Specialty Start Date End Date Katia Stone, PABijalC PCP - General 05/02/[address] [place] [address] documented as of this encounter
--- OUTSIDE RECORDS SUMMARY | 2022-01-31 16:02 | XMS_ITS | Encounter Summary ---
:1950 [place] [address] Care Team Providers Name Role Phone Katia Mccallum Primary Care Provider Encounter Details Date Type Department Care Team Description 07/09/2021 Ancillary Procedure Radiology Library at [place], And beti Steward [facility] [place] [address] [place] [id number] [phone] (Wo rk) Social History Tobacco Use Types [...] purpo se is for storage only. Nolan Bteh MD [facility] FILM LIBRARY ORDERABLES Performing Organization Address City/State/ZIP Code Phon e Number [place], [place] documented in this encounter Visit Diagnoses Not on filedocumented in this encounter Care Teams Geriatric Nurse Relationship Specialty Start Date End Date Katia Mccallum PA PCP - General General Internal Medicine 11/10/18 [address] [place] [address] documented as of this encounter
--- OUTSIDE RECORDS SUMMARY | 2022-01-31 16:02 | XMS_ITS | Encounter Summary ---
:1950 Author Organization [facility] Address [address] [place] [address] Care Team Providers Name Role Phone None, Provider Primary Care Provider Unavailable Katia Stone PA-C Primary Care Provider Reason for Referral (Routine) - Receiving Office to Obtain Authorization Specialty Diagnoses / Procedures Referred By Contact Refer effie To Contact Kaity Yañez NP [address] [place] [phone] Referral ID Status Reason Start Expiration Visits Visits Date Date Requested Authorized [id number] Receiving Office Specialty 05/02/2017 1 1 to [...] Refer effie To Contact Kaity Yañez NP [address] [place] [phone] Referral ID Status Reason Start Expiration Visits Visits Date Date Requested Authorized [id number] Receiving Office Specialty 05/02/2017 1 1 to Obtain Services Authorization Required Comments You must contact us if we have not conta cted you or you have missed your scheduled appointment. If you have any nursing questions, joy gauthier don't hesitate to call the Cardiac Arrhythmia Service at [facility] at [phone] or , extension [phone]. For any scheduling of appointments, juliette kitchen call [phone] or , extension [phone]. . (Routine) - Receiving Office to Obtain Authorization Specialty Diagnoses / Procedures Referred By Contact Dian chou To Contact Kaity Yañez NP [address] [phone] Referral ID Status Reason Start Expiration Visits Visits Date Date Requested Authorized [id number] Receiving Office Specialty 05/02/2017 1 1 to Obtain Services Authorization Required Comments Appointment on May 13, 2017 at 9 am for an incision site check with the nurse in the device clinic at [facility]. Phone [phone]. [facility] is located at [address] [place] [address] (Routine) - Receiving Office to Obtain Authorization Specialty Diagnoses / Procedures Referred By Contact Dian chou To Contact Kaity Yañez NP [address] [phone] Referral ID Status Reason Start Expiration Visits Visits Date Date Requested Authorized [id number] Receiving Office Specialty 05/02/2017 1 1 to [...] scheduled at your first appointment. - The [facility] Cardiology is located at [address] [facility] in [place] -Clinics are also held in [facility], [place], [place] and [facility]. I f you live in those areas, we will make arrangements for follow-up appointments in one of those clinics.. Reason for Visit Reason Comments Bradycardia Pt transferred [place] with new complete heart block. VSS on arrival. CC DOBBS. Encounter Details Date Type Department Care Team Description 04/30/2017 - [facility] Yvon Fields MD [address] [place] [id number] Heart block AV third degree (CMS-HCC) (H CC-CMS) (Primary Dx); 05/04/2017 Encounter Cardiac/Telemetry Kenneth Hendrickson MD [address] [place] [id number] Acute on chronic diastolic congestive he art failure (CMS-HCC) (HCC-CMS) Unit Houston Corey MD [address] [facility] [address] [place] [address] [place] [address] Social History Tobacco Use Types Packs/Day Years Used Date Smoking Tobacco: Never Smokeless Tobacco: Never Tobacco Cessation: Counseling Given: Yes Sex Assigned [...] EST Cardiology Discharge Summary Primary Care Provider: Ktaia Mccallum Attending Physician: Houston Corey MD Admit Date: 04/30/2017 Discharge Date: 05/04/17 Disposition: Home or self care Reason for Admission: SOB Principal/Final Diagnosis: Heart block AV third degree ([facility]) Additional Problems Managed in the Hospital Active Hospital Problems Diagnosis Date Noted ??? *Heart block AV third degree ([facility]) 04/30/2017 ??? Hypertensive urgency 05/01/2017 ??? Acute on chronic diastolic congestive heart failure ([facility]) 05/01/2017 Resolved Hospital Problems Diagnosis Date Noted Date Resolved No resolved problems to display. Principal Procedure: PPM 05/02/17 Secondary Procedures: none Hospital Course: David Farfan is a 66 y.o. male with no known PMH transferred from [facility] on 04/30/17 for complete heart block. 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 He complianed of 2-3 months of SOB which worsened 2-3 weeks prior to admission and reached critical point 2-3 days prior to admission when he had symptoms at rest with 3 pillow orthopnea and mild increased LE swelling prompting presentation to [facility]. On arrival to ED he was afebrile, HR 58, BP 190/103 with negative labs. ECHO showed EF 65% with moderate concentric LVH, mild LA dilation and mild AST/TR. His HRdropped to the 30s prompting transfer to [facility]. On arrival here patient was asymptomatic with [...] on 05/04/17. He was connected with Katia arriaga patient primary care office on 05/29 as [...] Post Hospital Visit with Caitie Atwood NP [facility] Cardiology - [facility] (--) [address] [place] [address] Follow-up appointments and procedures Pacemaker check Your [...] scheduled at your first appointment. - [facility] Cardiology is located at [address] in [place] -Clinics are also held in [facility], and [facility]. If you live in those areas, [...] the nurse in the device clinic at [facility]. Phone [phone]. [facility] is located at [address] [place] [address] Authorizing Provider: Coleen Yañez NP ~Please note: You must contact us if we have not contacted you or you have missed your scheduled appointment. If you have any nursing questions, please don't hesitate to call the Cardiac Arrhythmia Service at [facility] at [phone] or , extension [phone]. For any scheduling of appointments, please call [phone] or , extension [phone]. . Authorizing Provider: Coleen Yañez NP Additional Information: Appointment on May 13, 2017 at 9 am for an incision site check with the nurse in the device clinic at the [facility]. . [facility] is located at [address] [place] [address] . You have an appointment with Katia Mccallum PA-C at [facility] on 05/29/2017 at 1:00 pm. If you have questions or need to reschedule your appointment, please call [phone]. Please arrive 15 minutes early to complete any necessary. Bring a copy of this AVS Summary with you. Cardiology follow up on June 16, 2017 at 2:[address] Torres at the [facility]. [facility] is located at [address] [place] [address]. Pacemaker device check on August 05, 2017 at 10 am at the [facility]. [facility] islocated at [address] [place] [address]. Discharge Handoff Communication I called Katia Mccallum's [...] nurse in the device clinic at the [facility]. . [facility] is located at [address] [place] [address] . You have an appointment with Katia Mccallum PA-C at [facility] on 05/29/2017 at 1:00 pm. If you have questions or need to reschedule your appointment, please call [phone]. Please arrive 15 minutes early to complete any necessary. Bring a copy of this AVS Summary with you. Cardiology follow up on June 16, 2017 at 2:[address] Torres at the [facility]. [facility] is located at [address] [place] [address]. Pacemaker device check on August 05, 2017 at 10 am at the [facility]. [facility] islocated at [address] [place] [address]. Discharge Instr - Other Melida Mas RN [...] Identifies this patient to be at risk - PLEASE turn/document at least every q 2 [...] and ask to be connected with a web content & social media manager AttachmentsThe following attachments cannot be sent through Care Everywhere. HEART FAILURE: AVOIDING TRIGGERS (MALDIVIAN)documented in this encounter Medications at Time of [...] - 05/04/2017 1500 EST I spoke with labor commissioner CM regarding patient's lack of electricity at his home. She recommended I contact patient's PCP, [facility] for further assistance, but that no other action could bemade on Friday. Was unable to leave message for their office today and efforts to contact them on 05/02 were met with unreturned messages. I have instructed patient to call their office on Friday to be connected to web content & social media manager. Amelia Partida DO Internal Medicine Resident PGY-3 [phone] 05/04/17 15:04 Gael Teixeira - 05/04/2017 1458 EST 05/04: Mr Argueta [...] Dc. GAEL TEIXEIRA RN Case Manager #[id number] Amelia Partida MD - 05/04/2017 1204 EST Cardiology Progress [...] known PMH admitted in transfer 04/30/17 from [facility] for asymptomatic complete heart block [...] the resident's/fellow's note. Jennyfer Keys MD 05/05/2017 16:35 Radha Lowery MD - 05/03/2017 1315 EST Cardiology Progress [...] complaints this morning. Hereports he uses the [facility] in [place]. Review of Systems Pertinent items are noted [...] known PMH admitted in transfer 04/30/17 from [facility] for asymptomatic complete heart block [...] been connected with Katia Mccallum PA-C for [facility] primary care on 05/29 at 1pm Radha Lowery MD Internal Medicine PGY-2 Pager #[phone] 05/03/2017 13:15 Associated attestation - Houston Corey MD - 05/05/2017 1043 EST Attestation statement: I saw and examined the patient with the resident/fellow. I agree with the findings and plan of care documented in the resident's/fellow's note. Patient seen on 05/02/17 Desi Villatoro RN - 05/02/2017 1000 EST 05/02: Patient has an appointment with Katia Mccallum PA-C at [facility] on 05/29/2017 at 1:00 to establish care. I will fax clinical information. Desi Villatoro RN ? Madhav, Houston Leung MD - 05/02/2017 0712 EST Cardiology Progress [...] known PMH admitted in transfer 04/30/17 from [facility] for asymptomatic complete heart block [...] been connected with Katia Mccallum PA-C for [facility] primary care on 05/29 at 1pm Patient [...] PATIENT CONTACT INFO VERIFIED: Yes (Eva Rudolph [phone]) PATIENT ADDRESS VERIFIED: Yes LIVING ARRANGEMENTS AND ACCESSIBILITY ISSUES: Living Arrangements: Alone Levels: 1 Stairs to enter: 2 Handicap access: None Bathroom located on bedroom level?: Yes What in home social supports are available to the patient? Friends / neighbors. Patient lives alone in a mobile home in [place]. He has no immediate family and depends [...] For Finances: No TRANSPORTATION: Transportation: Family CULTURAL, CONGREGATION and/or LANGUAGE factors affecting health care/discharge planning: [...] PCP Verified: Yes (Patient has gone to [facility] in the past to see Dr. Garcia who has since retired.) Specialists: None Type of Home Health Services: None DME Provider: None Pharmacy: [facility] - [address] - [place], [place] - [address] [facility] [phone] Home Health: None Other: POST HOSPITAL TRANSITION PLAN: Case management will continue to follow through transition to discharge. Anticipate discharge to home when medically stable. No needs are identified at this time. Patientsaid he has a friend who can provide transportation home. Ivelisse Rueda fire prevention engineer #[phone] Reba Marie, [facility] - 05/01/2017 1111 EST Transitions of Care - Pharmacy Admission Medication Reconciliation David Farfan is a 66 y.o. male admitted on 04/30/2017 for Heart block AV third degree ([facility]) Pharmacist Interventions/Recommendations: 1. Per patient report, the only medication he was taking prior to admission was ibuprofen 400mg daily for knee pain. Counseled patient to stop taking ibuprofen/NSAIDs as they are harmful to the heart and raise blood pressure-->recommended using acetaminophen for pain instead. 2. Confirmed patient would like to use [facility] in [place], [place] at discharge> please send all discharge prescriptions here. 3. Paged team with findings. Medication History Obtained from: Patient (Self) Medication reconciliation was performed. Discrepancies are noted in BOLD. Clarifications are noted in RED. Medications No prescriptions prior to admission. Additional Prior to Admission Aitt-bnx-Kqjfnua Products as noted by Patient/Family: Ibuprofen 400mg daily for knee pain Preferred Pharmacy: [facility] - [place], [place] Barriers to Learning: None apparent Barriers to Obtaining Medications: None apparent Barriers to Taking Medications: None apparent Please feel free to contact me or the Transitions of Care Pharmacy Team with questions or concerns. Thank you Reba Marie, PharmD, [facility] [phone] Pager: [phone] Houston Corey MD - 05/01/2017 0729 EST [...] known PMH admitted in transfer 04/30/17 from [facility] for asymptomatic complete heart block [...] H&P Admit Date: 04/30/2017 PCP: Provider None Customizer: none CC: complete heart block HPI: David Farfan is a 66 y.o. male with no known PMH who presents in transfer from [place] for complete heart block. Briefly, patient last saw a doctor approximately 12 years ago after he was admitted for AL rule out in [place]. He reports having a stress at that time though does not recall being told it was abnormaland was not discharged on any medications. He saw a crew clerk once in follow-up and has not had [...] to present to the ED. On arrival [facility], patient was afebrile HR [...] ASA 324 mg prior to transfer to [facility]. On arrival here, he was alert and [...] remote stress test 12 years ago in [place] Review of Systems A 10 point review of systems was discussed and is negative aside from what is noted in HPI. PMH: none PSH: benign tumor removal R forearm, L knee arthroscopy Family History: no history of early CAD/ AL or heart block Social History: Lifetime non-smoker, currently chews tobacco (1 can lasts 2-3 days). intermediate moderate EtOH intake 2-4 drinks/ day, quit over MEGAN with a friend. Never had DTs or withdrawal seizures. 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 He is currently asymptomatic [...] Complications: none Full note to follow Surgeon: Jorge documented in this encounter ED Notes Kenneth Hendrickson MD - 04/30/2017 1719 EST DOS: 04/30/2017 Chief Complaint Patient presents with ??? Bradycardia Pt transferred from [place] with new complete heart block. VSS on arrival. CC DOBBS. HPI HPI Comments: I, Maite Schmitt, am scribing for Kenneth Hendrickson MD while he/she is personally performing the service. Maite Schmitt 04/30/2017 17:19 David Farfan is a 66 y.o. male with a history of heart block AV third degree who presents to the EDwith bradycardia. The patient was transferred from [place] with complaints of dyspnea on exertion and [...] ER after EKG, whom referred him to [facility] for pacemaker placement. Denies CP, [...] orders: EKG 12-LEAD Radiology orders: OUTSIDE IMAGES - ECHO IMAGES OUTSIDE IMAGES - OTHER CHEST [...] with bradycardia. The patient was transferred from [place] with complaints of dyspnea on exertion and [...] ER after EKG, whom referred [facility] to [facility]. Denies CP, vomiting, headaches, [...] 04/30/2017 17:19 No flowsheet data found. Damir Anne - 04/30/2017 1615 EST TCALL: DAVID FARFAN [address] SOBIA ESCALONA. 67YOM W/3' HEART BLOCK - MADHAV W/ CARDS ACCEPTING. NOTE TAKEN DR HENDRICKSON ([facility]). documented in this encounter Miscellaneous [...] AVS received. Pt left with son and blhfddew-fj-tas via wheelchair. BP 115/79 (BP Cuff Location: Right arm, Patient Position: Semi fowlers) Pulse 70 Temp 36.4 ??C (97.5 ??F) (Tympanic) Resp 18 Ht 180.3 cm (71) Wt 99.8 kg (220 lb) SpO2 99% BMI 30.68 kg/m2 Plan of Care - Aury Matias RN - 05/03/2017 1523 [...] to monitor. AURY MATIAS RN 05/03/2017 15:19 Plan of Care - Don Alvarado RN - 05/02/2017 2345 EST Problem: Daily [...] the night. DON ALVARADO RN 05/02/2017 23:42 Plan of Care - Aury Matias RN - [...] to monitor. AURY MATIAS RN 05/02/2017 17:43 Plan of Care - Don Alvarado RN - [...] and sleeping. DON ALVARADO RN 05/02/2017 5:12 Plan of Care - Charisse Corea RN - [...] insertion tomorrow Charisse Corea RN 05/01/2017 16:03 Plan of Care - Fransico Chew RN - 05/01/2017 0308 EST Problem: Daily Care Plan Goals Goal: Care Plan Documentation Outcome: Ongoing 05/01/17 0120 Care Plan Focus Area of Focus Circulatory Status Goal This Shift VSS, monitor tele D: Patient arrived to [place] [address] at 1900. Vital signs noted, BP 180s/80s. [...] this encounter Results ECG REPORT - SCANNED (05/09/2017 13:51 EST) Specimen (Source) Anatomical Collection Method Collection Time Re ceived Time Location / / Volume Laterality 05/09/2017 13:51 EST Narrative This result has an attachment that is no t available. Scan 2 Sales Representative Door To Door PROCEDURE/MINOR SURGICAL ORD ERABLES ECG REPORT - SCANNED (05/08/2017 8:27 EST) Specimen (Source) Anatomical Collection Method Collection Time Re ceived Time Location / / Volume Laterality 05/08/2017 8:27 EST Narrative This result has an attachment that is no t available. Scan 2 Sales Representative Door To Door PROCEDURE/MINOR SURGICAL ORD ERABLES IMPLANT RECORD - SCANNED (05/08/2017 8:14 EST) Specimen (Source) Anatomical Collection Method Collection Time Re ceived Time Location / / Volume Laterality 05/08/2017 8:14 EST Narrative This result has an attachment that is no t available. Scan 2 Sales Representative Door To Door PROCEDURE/MINOR SURGICAL ORD ERABLES ECG REPORT - SCANNED (05/08/2017 8:14 EST) Specimen (Source) Anatomical Collection Method Collection Time Re ceived Time Location / / Volume Laterality 05/08/2017 8:14 EST Narrative This result has an attachment that is no t available. Scan 2 Sales Representative Door To Door PROCEDURE/MINOR SURGICAL ORD ERABLES ECG REPORT - SCANNED (05/08/2017 8:14 EST) Specimen (Source) Anatomical Collection Method Collection Time Re ceived Time Location / / Volume Laterality 05/08/2017 8:14 EST Narrative This result has an attachment that is no t available. Scan 2 Sales Representative Door To Door PROCEDURE/MINOR SURGICAL ORD ERABLES IMPLANT RECORD - SCANNED (05/08/2017 8:14 EST) Specimen (Source) Anatomical Collection Method Collection Time Re ceived Time Location / / Volume Laterality 05/08/2017 8:14 EST Narrative This result has an attachment that is no t available. Scan 2 Sales Representative Door To Door PROCEDURE/MINOR SURGICAL ORD ERABLES (ABNORMAL) GLUCOSE, GLUCOMETER (05/04/2017 7:41 EST) [facility] Method Time Signature Glucose, 104 (H) 70 - 100 05/04/2017 [facility] Fingerstick mg/dl 7:42 EST [facility] Public Relations Representative ID [id number] 05/04/2017 [facility] 7:42 EST [facility] Comment: Test Performed by Nursing Seai perez Specimen Anatomical Collection Method Collection Time Receive d Time (Source) Location / / Volume Laterality BLOOD SPECIMEN / 05/04/2017 7:41 05/05/19 18 7:42 Unknown EST EST Houston C Corey MD CHEMISTRY & BLOOD GAS ORDERA BLES Performing Organization Address City/State/ZIP Code Phon e Number [facility] [address] [place] [address] SERVICES CREATININE (05/03/2017 5:42 EST) athologist Signature Creatinine 0.67 0.66 - 05/03/2017 [facility] 1.25 mg/dl 6:56 [facility] GFR, Calculated 100 >60 05/03/2017 [facility] ml/min/1.7 6:56 [facility] 3m2 LABORATORY SERVICES Comment: eGFR calculated using CKD-EPI equation f or non Americans. Multiply eGFR by 1.16 for Americans. Specimen Anatomical Collection Method Collection Time Receive d Time (Source) Location / / Volume Laterality Blood specimen BLOOD SPECIMEN / 05/03/2017 5:42 2017 6:20 (specimen) Unknown EST EST Houston Corey MD CHEMISTRY & BLOOD GAS ORDERA BLES Performing Organization Address City/[facility]/ZIP Code Phon e Number [facility] [address] [place] [address] SERVICES (ABNORMAL) BUN (05/03/2017 5:42 EST) athologist Signature BUN 8 (L) 10 - 26 05/03/2017 [facility] mg/dl 6:56 [facility] SERVICES Specimen Anatomical Collection Method Collection Time Receive d Time (Source) Location / / Volume Laterality Blood specimen BLOOD SPECIMEN / 05/03/2017 5:42 2017 6:20 (specimen) Unknown EST EST Houston Corey MD CHEMISTRY & BLOOD GAS ORDERA BLES Performing Organization Address City/State/ZIP Code Phon e Number [facility] [address] [place] [address] SERVICES (ABNORMAL) ELECTROLYTES (05/03/2017 5:42 EST) athologist Signature Sodium 134 (L) 136 - 145 05/03/2017 [facility] mEq/L 6:56 [facility] Potassium 4.2 3.5 - 5.0 05/03/2017 [facility] mEq/L 6:56 [facility] Chloride 99 96 - 110 05/03/2017 [facility] mEq/L 6:56 EST [facility] CO2 26 22 - 32 05/03/2017 [facility] mEq/L 6:56 [facility] SERVICES Specimen Anatomical Collection Method Collection Time Receive d Time (Source) Location / / Volume Laterality Blood specimen BLOOD SPECIMEN / 05/03/2017 5:42 2017 6:20 (specimen) Unknown [facility] EST Houston Corey MD CHEMISTRY & BLOOD GAS ORDERA BLES Performing Organization Address City/State/ZIP Code Phon e Number [facility] [address] [place] [address] SERVICES (ABNORMAL) HEMAGRAM (05/03/2017 5:42 EST) P athologist Signature WBC 7.95 4.0 - 10.4 05/03/2017 [facility] K/cmm 6:46 [facility] RBC 3.97 (L) 4.36 - 05/03/2017 [facility] 5.78 M/cmm 6:46 [facility] Hemoglobin 13.3 (L) 13.8 - 05/03/2017 [facility] 17.3 gm/dl 6:46 [facility] HCT 38.4 (L) 39.5 - 05/03/2017 [facility] 50.2 % 6:46 [facility] MCV 97 (H) 81 - 95 fl 05/03/2017 [facility] 6:46 [facility] MCH 33.5 (H) 27.6 - 05/03/2017 [facility] 33.0 pg 6:46 [facility] MCHC 34.6 32.8 - 05/03/2017 [facility] 36.4 gm/dl 6:46 [facility] RDW-CV 11.9 <14.2 % 05/03/2017 [facility] 6:46 [facility] RDW-SD 42.4 <46.0 fl 05/03/2017 [facility] 6:46 [facility] PLT 196 141 - 377 05/03/2017 [facility] K/cmm 6:46 [facility] MPV 12.6 9.5 - 12.7 05/03/2017 [facility] fl 6:46 [facility] Specimen Anatomical Collection Method Collection Time Receive d Time (Source) Location / / Volume Laterality Blood specimen BLOOD SPECIMEN / 05/03/2017 5:42 2017 6:20 (specimen) Unknown EST EST Houston Corey MD HEMATOLOGY & PF4 ORDERABLES Performing Organization Address City/State/ZIP Code [facility]on [facility] Number [facility] [facility] [address] [place] [address] SERVICES EKG 12-LEAD (05/03/2017 4:23 EST) Specimen (Source) Anatomical Collection Method Collection Time Re ceived Time Location / / Volume Laterality 05/03/2017 4:23 EST Narrative [facility] EKG - 05/09/2017 13:4 7 EST ? [facility] ? Test Date: ?2017-05-03 Pat Name: ? DAVID FARFAN ?Department: ?? [place] [address] ? Room: ? MW514 Gender: ? 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 [id number] : ?1950 ? Requested By: MARIO ALBERTO SCANLON Order Number: [id number] ? Reading : ?? SENG PERSON SA, MD ? Measurements Intervals ?[place] ? Rate: ? 75 ? P: ?51 DE: ? 172 ?QRS: ?-77 QRSD: ? 172 [...] Procedure Note Seng Brody Sa, MD - 05/09/2017F ormatting of this note might be different from the original. [facility] Test Date: 2017-05-03 Pat Name: DAVID FARFAN Department: [facility] Latasha Chao Room: 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 Provider Inter pretation to follow. Compared to ECG 05/02/2017 10:10:30 No significant changes I reviewed the tracing and have either a greed or edited the findings in this report. Electronically Signed On 8 13:47:58 EST by SENG PERSON SA, MD. Joesph Louie MD CARDIAC ECG ORDERABLES Performing Organization Address City/State/ZIP Code Phon e Number [facility] EKG ECG REPORT - SCANNED (05/02/2017 11:16 EST) Specimen (Source) Anatomical Collection Method Collection Time Re ceived Time Location / / Volume Laterality 05/02/2017 11:16 EST Narrative This result has an attachment that is no t available. Scan 2 Sales Representative Door To Door PROCEDURE/MINOR SURGICAL ORD ERABLES PORTABLE CHEST 1 VIEW (05/02/2017 10:27 EST) Anatomical Region Laterality Modality Other Specimen Anatomical Collection Method Collection Time Receive d Time (Source) Location / / Volume Laterality 05/02/2017 10:27 05/02/2017 EST 10:51 EST Narrative 05/02/2017 10:51 EST PORTABLE CHEST 1 VIEW [...] right. Procedure Note Umang Dugan MD - 05/02/2017Formatti ng of this note might be different from the original. PORTABLE CHEST 1 VIEW 05/02/2017 10:27 AM Clinical History/Comments: heart block; s/p PPM Comparison: 04/30/2017 Findings: Semiupright AP view was obtain ed. Dual-chamber pacemaker has been placed through the left subclav jse vein. Leads overlie the right atrium and right ventricle. There is no evidence of pneumothorax, but one cannot be excluded on this non-upright radiograph. Pulmonary edema has significant improved and the cardiac silhouette is smaller than previously. Extensive pl eural calcification is present on the right. Tony Rosenberg MD IMG DIAGNOSTIC IMAGING TAY YBARRA EKG 12-LEAD (05/02/2017 10:10 EST) Specimen (Source) Anatomical Collection Method Collection Time Re ceived Time Location / / Volume Laterality 05/02/2017 10:10 EST Narrative [facility] EKG - 05/08/2017 8:22 EST ? [facility] ? Test Date: ?2017-05-02 Pat Name: ? DAVID FARFAN ?Department: ?? JAME Chao ? Room: ? MW514 Gender: ? 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 [id number] : ?1950 ? Requested By: JORGE Martinez Order Number: [id number] ? Martha OAKES: ?? LALY BARBER MD ? Measurements Intervals ?[place] ? Rate: ? 63 ? P: ?40 DE: ? 170 ?QRS: ?-72 QRSD: ? 180 ?T: ?86 QT: ? 492 ? QTc: ?504 ? Interpretive Statements DUAL CHAMBER PACER ELECTRONIC VENTRICULAR PACEMAKER I reviewed the tracing and have either a greed or edited the findings in this report. Electronically Signed On 08:22:30 EST by LALY BARBER MD. Procedure Note Laly Barber MD - 05/08/2017Formatti ng of this note might be different from the original. [facility] Test Date: 2017-05-02 Pat Name: DAVID FARFAN [facility] Room: [facility] Gender: M Log Chain Worker: [id number] : 1950 Requested By: JORGE Martinez Order Number: [id number] Martha BARBER MD Measurements Intervals [place] Rate: 63 P: 40 DE: 170 QRS: -72 QRSD: 180 T: 86 QT: 492 QTc: 504 Interpretive Statements DUAL CHAMBER PACER ELECTRONIC VENTRICULAR PACEMAKER I reviewed the tracing and have either a greed or edited the findings in this report. Electronically Signed On 08:22:30 EST by LALY BARBER MD. Tony Rosenberg MD CARDIAC ECG ORDERABLES Performing Organization Address City/State/ZIP Code Phon e Number [facility] EKG PERMANENT PACEMAKER PROCEDURE (05/02/2017 10:00 EST) Anatomical Region Laterality Modality Other Specimen (Source) Anatomical Collection Method Collection Time Re ceived Time Location / / Volume Laterality 05/02/2017 10:00 EST Narrative 05/02/2017 11:24 EST *Cardiology* [address] [place] [address] Device Implantation Patient: David Farfan ? Study Date: ?05/02/2017 ? Accession #: ? [id number] : ? 1950 Referring: Attending: Tony Rosenberg [...] skin adhesive. IMPLANTED HARDWARE: Implanted device: Clifford ESTEVEZ DR - Serial number: [id number]. LEAD PARAMETERS + + ----+ + Lead # ? 1 ? 2 ? + + ----+ + Chamber ? RA ? RV ? + + ----+ + Date implanted ?? 05/02/2017 ? 05/02/2017 ? + + ----+ + Model information [employer] ? [employer] Ingevity ? ingevity mr ? MRI ? + + ----+ + Serial number ? [id number] ? [id number] ? + + ----+ + Location ? [...] [facility] members and patient support persons who were present at the conclusi on of the procedure. POST PROCEDURAL DISPOSITION: Patient was admitted as an inpatient mello or to this procedure. Electronically signed by Tony Rosenberg MD 05/02/2017 11:23 Procedure Note Tony Rosenberg MD - 05/02/2017Formatt ing of this note might be different from the original. *Cardiology* [address] [place] [address] Device Implantation Patient: David Farfan Study Date: [...] skin adhesive. IMPLANTED HARDWARE: Implanted device: Clifford ESTEVEZ DR - Serial number: [id number]. LEAD PARAMETERS + + ----+ + Lead # 1 2 + + ----+ + Chamber RA RV + + ----+ + Date implanted 05/02/2017 05/02/2017 + + ----+ + Model information [employer] [facility] mr MRI + + ----+ + Serial number [id number] + + ----+ + Location RA appendage [...] [facility] and patient support persons who were present at the conclusi on of the procedure. POST PROCEDURAL DISPOSITION: Patient was admitted as an inpatient mello or to this procedure. Electronically signed by Tony Rosenberg MD 05/02/2017 11:23 Houston Corey MD CARDIAC EP ORDERABLES CREATININE (05/02/2017 6:11 EST) athologist Signature Creatinine 0.68 0.66 - 05/02/2017 [facility] 1.25 mg/dl 7:26 [facility] LABORATORY SERVICES GFR, Calculated 100 >60 05/02/2017 [facility] ml/min/1.7 7:26 [facility] 3m2 LABORATORY SERVICES Comment: eGFR calculated using CKD-EPI equation f or non Americans. Multiply eGFR by 1.16 for Americans. Specimen Anatomical Collection Method Collection Time Receive d Time (Source) Location / / Volume Laterality Blood specimen BLOOD SPECIMEN / 05/02/2017 6:11 2017 6:47 (specimen) Unknown EST EST Houston Corey MD CHEMISTRY & BLOOD GAS ORDERA BLES Performing Organization Address City/State/ZIP Code Phon e Number [facility]ORATORY [address] [place] [address] SERVICES BUN (05/02/2017 6:11 EST) athologist Signature BUN 10 10 - 26 05/02/2017 [facility] mg/dl 7:26 [facility] LABORATORY SERVICES Specimen Anatomical Collection Method Collection Time Receive d Time (Source) Location / / Volume Laterality Blood specimen BLOOD SPECIMEN / 05/02/2017 6:11 2017 6:47 (specimen) Unknown EST EST Houston Corey MD CHEMISTRY & BLOOD GAS ORDERA BLES Performing Organization Address City/[facility]/ZIP Code Phon e Number [facility]ATORY [address] [phone] SERVICES (ABNORMAL) ELECTROLYTES (05/02/2017 6:11 EST) athologist Signature Sodium 135 (L) 136 - 145 05/02/2017 [facility] mEq/L 7:26 [facility] LABORATORY SERVICES Potassium 4.4 3.5 - 5.0 05/02/2017 [facility] mEq/L 7:26 [facility] LABORATORY SERVICES Chloride 102 96 - 110 05/02/2017 [facility] mEq/L 7:26 [facility] LAB[facility]ATORY SERVICES CO2 23 22 - 32 05/02/2017 [facility] mEq/L 7:26 [facility] LABORATORY SERVICES Specimen Anatomical Collection Method Collection Time Receive d Time (Source) Location / / Volume Laterality Blood specimen BLOOD SPECIMEN / 05/02/2017 6:11 2017 6:47 (specimen) Unknown EST EST Houston Corey MD CHEMISTRY & BLOOD GAS ORDERA BLES Performing Organization Address City/State/ZIP Code Phon e Number [facility] [address] [place] [address] SERVICES (ABNORMAL) HEMAGRAM (05/02/2017 6:11 EST) athologist Signature WBC 6.92 4.0 - 10.4 05/02/2017 [facility] K/cmm 6:59 EST [facility]ENTER LAB[facility]ATORY SERVICES RBC 3.67 (L) 4.36 - 05/02/2017 [facility] 5.78 M/cmm 6:59 [facility] LABORATORY SERVICES Hemoglobin 12.3 (L) 13.8 - 05/02/2017 [facility] 17.3 gm/dl 6:59 [facility] LABORATORY SERVICES HCT 35.2 (L) 39.5 - 05/02/2017 [facility] 50.2 % 6:59 [facility] LABORATORY SERVICES MCV 96 (H) 81 - 95 fl 05/02/2017 [facility] 6:59 [facility] LABORATORY SERVICES MCH 33.5 (H) 27.6 - 05/02/2017 [facility] 33.0 pg 6:59 [facility] LABORATORY SERVICES MCHC 34.9 32.8 - 05/02/2017 [facility] 36.4 gm/dl 6:59 [facility] LABORATORY SERVICES RDW-CV 11.9 <14.2 % 05/02/2017 [facility] 6:59 [facility] LABORATORY SERVICES RDW-SD 41.1 <46.0 fl 05/02/2017 [facility] 6:59 [facility] LABORATORY SERVICES PLT 185 141 - 377 05/02/2017 [facility] K/cmm 6:59 [facility] LABORATORY SERVICES MPV 12.9 (H) 9.5 - 12.7 05/02/2017 [facility] fl 6:59 [facility] LABORATORY SERVICES Specimen Anatomical Collection Method Collection Time Receive d Time (Source) Location / / Volume Laterality Blood specimen BLOOD SPECIMEN / 05/02/2017 6:11 2017 6:47 (specimen) Unknown EST EST Houston Corey MD HEMATOLOGY & PF4 ORDERABLES Performing Organization Address City/State/ZIP Code Phon e Number [facility] [address] [place] [address] SERVICES (ABNORMAL) TROPONIN I (05/01/2017 7:52 EST) [facility] gist Method Time Signature Troponin I 0.035 (H) <0.034 05/01/2017 [facility] (ng/mL) ng/ml 9:10 [facility] LABORATORY SERVICES Specimen Anatomical Collection Method Collection Time Receive d Time (Source) Location / / Volume Laterality Blood specimen BLOOD SPECIMEN / 05/01/2017 7:52 2017 8:19 (specimen) Unknown EST EST Amelia Partida DO CHEMISTRY & BLOOD GAS ORDERA BLES Performing Organization Address City/State/ZIP Code Phon e Number [facility] [address] [place] [address] SERVICES MAGNESIUM (05/01/2017 6:01 EST) athologist Signature Magnesium 2.1 1.7 - 2.8 05/01/2017 [facility] mg/dl 6:46 [facility] LABORATORY SERVICES Specimen Anatomical Collection Method Collection Time Receive d Time (Source) Location / / Volume Laterality Blood specimen BLOOD SPECIMEN / 05/01/2017 6:01 2017 6:15 (specimen) Unknown EST EST Amelia Partida DO CHEMISTRY & BLOOD GAS ORDERA BLES Performing Organization Address City/State/ZIP Code Phon e Number [facility] [address] [place] [address] SERVICES CREATININE (05/01/2017 6:01 EST) athologist Signature Creatinine 0.67 0.66 - 05/01/2017 [facility] 1.25 mg/dl 6:46 [facility] LABORATORY SERVICES GFR, Calculated 100 >60 05/01/2017 [facility] ml/min/1.7 6:46 [facility] 3m2 LABORATORY SERVICES Comment: eGFR calculated using CKD-EPI equation f or non Americans. Multiply eGFR by 1.16 for Americans. Specimen Anatomical Collection Method Collection Time Receive d Time (Source) Location / / Volume Laterality Blood specimen BLOOD SPECIMEN / 05/01/2017 6:01 2017 6:15 (specimen) Unknown EST EST Houston Corey MD CHEMISTRY & BLOOD GAS ORDERA BLES Performing Organization Address City/State/ZIP Code Phon e Number [facility] [address] [place] [address] SERVICES (ABNORMAL) BUN (05/01/2017 6:01 EST) athologist Signature BUN 6 (L) 10 - 26 05/01/2017 [facility] mg/dl 6:46 [facility] LABORATORY SERVICES Specimen Anatomical Collection Method Collection Time Receive d Time (Source) Location / / Volume Laterality Blood specimen BLOOD SPECIMEN / 05/01/2017 6:01 2017 6:15 (specimen) Unknown EST EST Houston Corey MD CHEMISTRY & BLOOD GAS ORDERA BLES Performing Organization Address City/State/ZIP Code Phon e Number [facility] [address] [place] [address] SERVICES (ABNORMAL) ELECTROLYTES (05/01/2017 6:01 EST) athologist Signature Sodium 134 (L) 136 - 145 05/01/2017 [facility] mEq/L 6:46 [facility] LAB[facility]ATORY SERVICES Potassium 4.5 3.5 - 5.0 05/01/2017 [facility] mEq/L 6:46 [facility] LAB[facility]ATORY SERVICES Chloride 101 96 - 110 05/01/2017 [facility] mEq/L 6:46 [facility] LABORATORY SERVICES CO2 23 22 - 32 05/01/2017 [facility] mEq/L 6:46 [facility] LABORATORY SERVICES Specimen Anatomical Collection Method Collection Time Receive d Time (Source) Location / / Volume Laterality Blood specimen BLOOD SPECIMEN / 05/01/2017 6:01 2017 6:15 (specimen) Unknown [facility] EST Houston Corey MD CHEMISTRY & BLOOD GAS ORDERA BLES Performing Organization Address City/State/ZIP Code Phon e Number [facility] LABORATORY [address] [place] [address] SERVICES (ABNORMAL) HEMAGRAM (05/01/2017 6:01 EST) athologist Signature WBC 7.09 4.0 - 10.4 05/01/2017 [facility] K/cmm 6:27 [facility] LABORATORY SERVICES RBC 3.76 (L) 4.36 - 05/01/2017 [facility] 5.78 M/cmm 6:27 [facility] LAB[facility]ATORY SERVICES Hemoglobin 12.7 (L) 13.8 - 05/01/2017 [facility] 17.3 gm/dl 6:27 [facility] LABORATORY SERVICES HCT 36.4 (L) 39.5 - 05/01/2017 [facility] 50.2 % 6:27 [facility] LABORATORY SERVICES MCV 97 (H) 81 - 95 fl 05/01/2017 [facility] 6:27 [facility] LABORATORY SERVICES MCH 33.8 (H) 27.6 - 05/01/2017 [facility] 33.0 pg 6:27 [facility] LABORATORY SERVICES MCHC 34.9 32.8 - 05/01/2017 [facility] 36.4 gm/dl 6:27 [facility] LABORATORY SERVICES RDW-CV 11.9 <14.2 % 05/01/2017 [facility] 6:27 [facility] LABORATORY SERVICES RDW-SD 42.1 <46.0 fl 05/01/2017 [facility] 6:27 [facility] LABORATORY SERVICES PLT 205 141 - 377 05/01/2017 [facility] K/cmm 6:27 [facility] LABORATORY SERVICES MPV 12.8 (H) 9.5 - 12.7 05/01/2017 [facility] fl 6:27 [facility] LABORATORY SERVICES Specimen Anatomical Collection Method Collection Time Receive d Time (Source) Location / / Volume Laterality Blood specimen BLOOD SPECIMEN / 05/01/2017 6:01 2017 6:15 (specimen) Unknown [facility] Houston Corey MD HEMATOLOGY & PF4 ORDERABLES Performing Organization Address City/State/ZIP Code Phon e Number [facility]ORATORY [address] [place] [address] SERVICES LIPID PROFILE (INCLUDES CHOLESTEROL, TRIGLYCERIDES, HDL, LDL) (05/01/2017 6:01 EST) P athologist Signature Cholesterol 148 mg/dl 05/01/2017 [facility] 6:46 [facility] LABORATORY SERVICES Comment: Desirable:<200 Borderline High:200-239 High:>ky=343 Triglycerides 65 mg/dl 05/01/2017 6:46 [facility] LABORATORY SERVICES Comment: Normal:<150 Borderline High:150-199 High:200-499 Very High:>dv=260 HDL 39 mg/dl 05/01/2017 6:46 [facility] LABORATORY SERVICES Comment: Low:<40 Normal:40-60 Desirable: >60 LDL, Calculated 96 mg/dl 05/01/2017 6:46 [facility] LABORATORY SERVICES Comment: Optimal:<100 Near Optimal:100-129 Borderline High:130-159 High:160-189 Very High:>hg=193 Chol/HDL Ratio 3.8 05/01/2017 6:46 [facility] LABORATORY SERVICES Fasting? Unknown 05/01/2017 6:46 [facility] LABORATORY SERVICES Non HDL Cholesterol 109 mg/dl 05/01/2017 6:46 [facility] LABORATORY SERVICES Comment: Desirable:<130 Borderline:130-159 High: 160-189 Very High: >ve=309 Specimen Anatomical Collection Method Collection Time Receive d Time (Source) Location / / Volume Laterality Blood specimen BLOOD SPECIMEN / 05/01/2017 6:01 2017 6:15 (specimen) Unknown EST EST Houston Corey MD CHEMISTRY & BLOOD GAS ORDERA BLES Performing Organization Address City/[facility]/ZIP Code Phon e Number [facility]ORY [address] [place] [address] SERVICES (ABNORMAL) TROPONIN I (05/01/2017 0:20 EST) Patholo gist Method Time Signature Troponin I 0.055 (H) <0.034 05/01/2017 [facility] (ng/mL) ng/ml 1:01 EST [facility]ENTER LAB[facility]ATORY SERVICES Specimen Anatomical Collection Method Collection Time Receive d Time (Source) Location / / Volume Laterality Blood specimen BLOOD SPECIMEN / 05/01/2017 0:20 2017 0:24 (specimen) Unknown EST EST Amelia Partida DO CHEMISTRY & BLOOD GAS ORDERA BLES Performing Organization Address [facility]/ZIP Code Phon e Number [facility] [address] [place] [address] SERVICES HEMOGLOBIN A1C (05/01/2017 0:20 EST) P athologist Signature Hemoglobin A1C 5.7 % 05/01/2017 [facility] 10:05 [facility] LABORATORY SERVICES Comment: Reference Range: <5.7% Normal 5.7-6.4% Prediabetes =>6.5% Diagnostic for diabetes (if confi rmed) Goals for glycemic control in diabetes A DA 2017 For non adults with diabetes: ?? Target <7.5% For children and adolescents with type 1 diabetes: ?? Target <7.0% More or less stringent targets may be appropriate for individual patients. Est Avg Glucose 117 mg/dl 05/01/2017 10:05 EST [facility] LABORATORY SERVICES Comment: eAG represents the A1c result expressed as average glucose in mg/dl. Specimen Anatomical Collection Method Collection Time Receive d Time (Source) Location / / Volume Laterality Blood specimen BLOOD SPECIMEN / 05/01/2017 0:20 2017 0:24 (specimen) Unknown EST EST Houston Corey MD CHEMISTRY & BLOOD GAS ORDERA BLES Performing Organization Address [facility]/ZIP Code Phon e Number [facility] [address] [place] [address] SERVICES (ABNORMAL) PROTIME (04/30/2017 19:33 EST) P athologist Signature Pro Time 15.1 (H) 10.3 - 13.4 04/30/2017 [facility] secs 20:08 [facility] LABORATORY SERVICES Comment: NOTE NEW REFERENCE RANGE OF APR 03 2017 I.N.R. 1.3 (H) 0.9 - 1.1 Ratio 04/30/2017 20:08 EST [facility] LABORATORY SERVICES Comment: Moderate Intensity Coumadin INR = 2.0-3. 0 Adjustments in anticoagulant therapy dos e should be based upon the INR and NOT the Pro Ti me. Specimen Anatomical Collection Method Collection Time Receive d Time (Source) Location / / Volume Laterality Blood specimen BLOOD SPECIMEN / 04/30/2017 19:33 04/30 (specimen) Unknown EST 19:47 EST Houston Corey MD HEMATOLOGY & PF4 ORDERABLES Performing Organization Address City/[facility]/ZIP Code Phon e Number [facility] [address] [place] [address] SERVICES ED/URGENT CARE ADD-ON (04/30/2017 18:20 EST) Analysis Performed At Patho logist Time Signature Tests to be LYME AB, 04/30/2017 [facility] added 18:16 [facility] LABORATORY SERVICES Comment: TSH Number for problems [id number] (ED) 04/30/2017 18:16 ES T [facility] LABORATORY SERVICES Specimen Anatomical Collection Method Collection Time Receive d Time (Source) Location / / Volume Laterality OTHER / Unknown 04/30/2017 18:20 04/30/19 18 EST 18:23 EST Amelia Partida DO HEMATOLOGY & PF4 ORDERABLES Performing Organization Address City/State/ZIP Code Phon e Number [facility] [address] [place] [address] SERVICES OUTSIDE IMAGES ??? ECHO IMAGES (04/30/2017 17:24 EST) Anatomical Region Laterality Modality Other Specimen (Source) Anatomical Collection Method Collection Time Re ceived Time Location / / Volume Laterality 04/30/2017 17:24 EST Narrative 04/30/2017 17:24 EST This is an outside study - there is no r eport. Procedure Note LICENSED CLINICAL SOCIAL WORKER, IMAGING - 04/30/2017Formatt ing of this note might be different from the original. This is an outside study - there is no r eport. Provider Unknown MD IMG OTHER IMAGING ORDERABLES EKG 12-LEAD (04/30/2017 16:43 EST) Specimen (Source) Anatomical Collection Method Collection Time Re ceived Time Location / / Volume Laterality 04/30/2017 16:43 EST Narrative [facility] EKG - 05/02/2017 11:1 2 EST ?[facility] Emergency ? Test Date: ?2017-04-30 Pat Name: ? DAVID FARFAN ?Department: ?? ED ? Room: ? AC12 Gender: ? 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 [id number] : ?1950 ? Requested By: DONNA Cabral Order Number: [id number] ? Reading MD: ?? ANA MARSH MD ? Measurements Intervals ?[place] ? Rate: ? 33 ? P: ? DE: ? 0 ?QRS: ?15 QRSD: ? 110 [...] On 11:12:25 EST by ANA MARSH MD. Procedure Note Ana Marsh MD - 05/02/2017Formatti ng of this note might be different from the original. [facility] Emergency Test Date: 2017-04-30 Pat Name: DAVID FARFAN Department: ED Room: [facility] Gender: M Log Chain Worker: [id number] : 1950 Requested By: DONNA Cabral Order Number: [id number] Reading MD: Vern MARSH MD Measurements Intervals [place] Rate: 33 P: DE: 0 QRS: 15 QRSD: 110 T: 42 [...] 8 11:12:25 EST by ANA MARSH MD. Bridget Fields MD CARDIAC ECG ORDERABLES Performing Organization Address [facility]/ZIP Code Phon e Number [facility] EKG TSH (04/30/2017 16:40 EST) athologist Signature TSH 1.34 0.47 - 4.68 04/30/2017 [facility] uIU/ml 19:24 [facility] LABORATORY SERVICES Specimen Anatomical Collection Method Collection Time Receive d Time (Source) Location / / Volume Laterality BLOOD SPECIMEN / 04/30/2017 16:40 018 Unknown EST 16:52 EST Bridget Fields MD CHEMISTRY & BLOOD GAS ORDERA BLES Performing Organization Address [facility] Code Phon e Number [facility]ATORY [address] [phone] SERVICES LYME AB (04/30/2017 16:40 EST) athologist Signature Lyme AB Negative 05/01/2017 [facility] 11:39 [facility] LAB[facility]ATORY SERVICES Comment: Reference Range: Negative Specimen Anatomical Collection Method Collection Time Receive d Time (Source) Location / / Volume Laterality BLOOD SPECIMEN / 04/30/2017 16:40 018 Unknown EST 16:52 EST Bridget Fields MD IMMUNOLOGY AND SEROLOGY TAY YBARRA Performing Organization Address [facility]/[place] [facility] Phon e Number [facility] [address] [place] [address] SERVICES (ABNORMAL) PROFILE ED CARDIAC PACK (04/30/2017 16:40 EST) [facility] gist Method Time Signature Sodium 134 (L) 136 - 145 04/30/2017 [facility] mEq/L 17:16 [facility] LABORATORY SERVICES Potassium 4.2 3.5 - 5.0 04/30/2017 [facility] mEq/L 17:16 [facility] LABOR[facility]ORY SERVICES Chloride 105 96 - 110 04/30/2017 [facility] mEq/L 17:16 EST CENTER LABORATORY SERVICES CO2 20 (L) 22 - 32 04/30/2017 [facility] mEq/L 17:16 [facility] LABOR[facility]ORY SERVICES BUN 6 (L) 10 - 26 04/30/2017 [facility] mg/dl 17:16 [facility] LABORATORY SERVICES Creatinine 0.61 (L) 0.66 - 04/30/2017 [facility] 1.25 mg/dl 17:16 [facility] LABORATORY SERVICES GFR, Calculated 104 >60 04/30/2017 [facility] ml/min/1.7 17:16 [facility] 3m2 LABORATORY SERVICES Comment: eGFR calculated using CKD-EPI equation f or non Americans. Multiply eGFR by 1.16 for Americans. Magnesium 1.7 1.7 - 2.8 04/30/2017 17:16 [facility] mg/dl EST CENTER LABORATORY SERVICES WBC 7.78 4.0 - 10.4 04/30/2017 17:12 [facility] K/m EST CENTER LABORATORY SERVICES RBC 3.72 (L) 4.36 - 5.78 04/30/2017 17:12 [facility] M/[facility] EST CENTER LABORATORY SERVICES Hemoglobin 12.6 (L) 13.8 - 17.3 04/30/2017 17:12 [facility] gm/dl EST CENTER LABORATORY SERVICES HCT 35.7 (L) 39.5 - 50.2 04/30/2017 17:12 [facility] % [facility] LABORATORY SERVICES MCV 96 (H) 81 - 95 fl 04/30/2017 17:12 [facility] CENTER LABORATORY SERVICES MCH 33.9 (H) 27.6 - 33.0 04/30/2017 17:12 [facility] pg [facility] LABORATORY SERVICES MCHC 35.3 32.8 - 36.4 04/30/2017 17:12 [facility] gm/dl EST CENTER LABORATORY SERVICES RDW-CV 11.9 <14.2 % 04/30/2017 17:12 [facility] CENTER LABORATORY SERVICES RDW-SD 41.5 <46.0 fl 04/30/2017 17:12 [facility] LABORATORY SERVICES PLT 197 141 - 377 04/30/2017 17:12 [facility] K/m EST CENTER LABORATORY SERVICES MPV 12.5 9.5 - 12.7 04/30/2017 17:12 [facility] fl EST CENTER LABORATORY SERVICES Neutrophils 62.1 % 04/30/2017 17:12 [facility] CENTER LABORATORY SERVICES Lymphocytes 23.9 % 04/30/2017 17:12 [facility] LABORATORY SERVICES Monocytes 11.6 % 04/30/2017 17:12 [facility] LABORATORY SERVICES Eosinophils 1.2 % 04/30/2017 17:12 [facility] LABORATORY SERVICES Basophils 0.9 % 04/30/2017 17:12 [facility] LABORATORY SERVICES Immature Grans 0.3 % 04/30/2017 17:12 [facility] LABORATORY SERVICES ABS Neutrophils 4.84 2.20 - 8.85 04/30/2017 17:12 [facility] CENTER LABORATORY SERVICES ABS Lymphs 1.86 1.09 - 3.30 04/30/2017 17:12 [facility] /[facility] LABORATORY SERVICES ABS Monocytes 0.90 (H) 0.1 - 0.8 04/30/2017 17:12 [facility] AL [facility] CENTER LABORATORY SERVICES ABS Eosinophils 0.09 0.03 - 0.61 04/30/2017 17:12 [facility] /[facility] CENTER LABORATORY SERVICES ABS Basophils 0.07 0.01 - 0.11 04/30/2017 17:12 [facility] ICAL /[facility] CENTER LABORATORY SERVICES ABS Immature Grans 0.02 0 - 0.06 04/30/2017 17:12 [facility] LABORATORY SERVICES Type of Diff: Automated 04/30/2017 17:12 [facility] LABORATORY SERVICES Troponin I (ng/mL) 0.040 (H) <0.034 ng/ml 04/30/2017 17:29 [facility] SERVICES Glucose, Screening 100 70 - 100 04/30/2017 17:16 [facility] mg/dl [facility] LABORATORY SERVICES Hold Blue Top Sample for 04/30/2017 17:04 [facility] coagulation will [facility] be discarded after LABORATORY 4 hours SERVICES Specimen Anatomical Collection Method Collection Time Receive d Time (Source) Location / / Volume Laterality Blood specimen BLOOD SPECIMEN / 04/30/2017 16:40 04/30 (specimen) Unknown EST 16:52 EST Bridget Fields MD PACKAGES & DNA PROBE ORDERAB LES Performing Organization Address City/State/ZIP Code Phon e Number [facility] [address] [place] [address] SERVICES documented in this encounter Visit Diagnoses Diagnosis Heart block AV third degree (HCC-CMS) (H CC) - Primary Atrioventricular block, complete Heart block AV third degree (HCC-CMS) (H CC) Atrioventricular block, complete Acute on chronic diastolic congestive he art failure (HCC-CMS) (HCC) Acute on chronic diastolic heart failure Hypertensive urgency Unspecified essential hypertension Acute on chronic diastolic congestive he art failure (HCC-CMS) (HCC) Acute on chronic diastolic heart failure documented [...] (7.485-74.85 mL/hr, rounded to 7.5-74.9 mL/hr), intravenous, CONTINUOUS, Starting on Fri04/30/17 at 1930, Until [...] RN)1533 (Given - Provider: Aury Matias, TISH) 0017 (Given - Provider: Don Alvarado RN) [...] Don Alvarado RN)0929 (Given - Provider: Aury Matias RN)1548 (Given - Provider: Charisse Corea RN)2310 (Given - Provider: Doris Alex, TISH) 0900 (Canceled Entry - Provider: Katie Smith RN)1504 (Canceled Entry - Provider: Katie Smith RN) 3 mL, intravenous, EVERY 8 HOURS, First dose on [place] 05/01/17 at 0000, Until Discontinued, Routine PRN Medication Order 05/02/2017 05/03/2017 05/04/2017 acetaminophen (TYLENOL) tablet 650 mg 1201 (Given - Pr ovider: Aury Matias RN) 0829 (Given - Provider: Aury Matias RN) 650 mg, oral, EVERY 4 HOURS PRN, Startin g Fri04/30/17 at 1904, Until Fri05/04/17 at 2019, Pain, Routine bisacodyl (DULCOLAX) suppository 10 mg 10 mg, rectal, DAILY PRN, Starting Fri at 1904, Until 05/04/17 at 2019, Constipation, Routine fentaNYL citrate (PF) 50 mcg/mL injection (COMPLETED) 804 (Given - Provider: Sigrid Schwartz RN)08 (Given - Provider: Sigrid Schwartz RN) intravenous, PRN, Starting on Fri05/02/17 at 0805, Until Fri05/02/17 at 0820, Routine midazolam (PF) (VERSED) 1 mg/mL injection (COMPLETED) 804 (Given - Provider: Sigrid Schwartz RN)08 (Given - Provider: Sigrid Schwartz, TISH) intravenous, [...] (COLACE) capsule 100 mg 1 04/30/19 18 Diet Count Last Ordered Date First [...] REQUEST 1 04/30/2017 STATUS: INPATIENT ACUTE ADMISSION 04/30/2017 Transfer Count Last Ordered Date First [...] 05/01/2017 documented in this encounter Care Teams Cow Tender Relationship Specialty Start Date End Date None, Provider PCP - General 04/30/17 05/01/17 Katia Stone, BELLAC PCP - General 05/02/17 [address] [place] [phone] documented as of this encounter
--- OUTSIDE RECORDS SUMMARY | 2022-01-31 16:02 | XMS_ITS | Encounter Summary ---
:1950 [place] [address] Care Team Providers Name Role Phone Katia Mccallum Primary Care Provider Encounter Details Date Type Department Care Team Description 11/14/2021 Hospital Encounter Non-Invasive Radha Hammond CHB (co [facility] heart Cardiology Lab Andra Hunter MD block) [address] [phone] (Work) [phone] Social History Tobacco Use Types Packs/Day Years [...] pdf document Date of transmission: 11/14/21 Device ecommerce marketing manager: BSC Device type: DC PM Presenting rhythm: apvp AP 56% ELECTRICIAN TECHNICIAN 100% - no LV functional assessment in [...] complete documented in this encounter Care Teams Electronics Tester Relationship Specialty Start Date End Date Katia Mccallum PA PCP - General General Internal Medicine 11/10/[address] [place] [phone] documented as of this encounter
--- OUTSIDE RECORDS SUMMARY | 2022-01-31 16:02 | XMS_ITS | Encounter Summary ---
:1950 Author Organization [facility] Address [address] [place] [address] Care Team Providers Name Role Phone Katia Stone PA-C Primary Care Provider Encounter Details Date Type Department Care Team Description 05/20/2017 Results Only Imaging [facility]- Unknown, PRISM Provider, Social History Tobacco Use [...] on filedocumented in this encounter Care Teams City Administrator Relationship Specialty Start Date End Date Katia Stone PA-C PCP - General 05/02/[address] [place] [phone] documented as of this encounter
--- OUTSIDE RECORDS SUMMARY | 2022-01-31 16:02 | XMS_ITS | Encounter Summary ---
:[address] [facility] Address [address] [place] [address] Care Team Providers Name Role Phone Katia Stone PA-C Primary Care Provider Encounter Details Date Type Department Care Team Description 05/20/2017 Results Only Imaging [facility]- Unknown, PRISM Provider, Social History Tobacco Use [...] in this encounter Care Teams Gas Meter Reader Relationship Specialty Start Date End Date Katia Stone PA-C PCP - General 05/02/[address] [place] [phone] documented as of this encounter
--- OUTSIDE RECORDS SUMMARY | 2022-01-31 16:02 | XMS_ITS | Encounter Summary ---
:1950 [place] [address] Care Team Providers Name Role Phone Katia Mccallum Primary Care Provider Encounter Details Date Type Department Care Team Description 08/14/2021 Hospital Encounter Non-Invasive Dylan Story [facility] (co [facility] heart Cardiology Lab Andra lloyd) [address] [phone] (Work) [phone] Social History Tobacco Use Types Packs/Day Years [...] INTERROGATION 3 MONTH (09/04/2021 7:46 AM EDT) Anatomical Region Laterality Modality Other Specimen (Source) Anatomical Location Collection Method / Collectio n Time Received Time / Laterality Volume Narrative 09/07/2021 11:24 AM EDT BSC DDD PPM remote reviewed. Normal device function. Dylan Story MD [facility] Cardiac Electrophysiology 09/07/2021 11:23 AM Dylan Story MD IMPLANTABLE CARDIAC DEVICE documented in this encounter Visit Diagnoses Diagnosis CHB (complete heart block) Atrioventricular block, complete documented in this encounter Care Teams Supervisor Shellfish Farming Relationship Specialty Start Date End Date Katia Mccallum PA PCP - General General Internal Medicine 11/10/[address] [place] [phone] documented as of this encounter
--- OUTSIDE RECORDS SUMMARY | 2022-01-31 16:02 | XMS_ITS | Encounter Summary ---
:1950 Author Organization [facility] [address] Care Team Providers Name Role Phone Katia Mccallum Primary Care Provider Encounter Details Date Type Department Care Team Description 11/25/2019 Telephone Cardiology at [facility] Gayla Ochoa RN [facility] [place] [phone] Social History Tobacco Use Types Packs/Day Years Used Date Smoking Tobacco: Never Assessed Sex Assigned at Date Recorded Not on file documented as of this encounter Miscellaneous Notes Telephone Encounter - Gayla Ochoa RN - 11/25/2019 11:44 AM EDT Maru called and is requesting acceptance of a referral to [facility] Cardiology for Tim. States that Timnormally sees [...] filedocumented in this encounter Care Teams Line Servicer Relationship Specialty Start Date End Date Katia Mccallum PA PCP - General General Internal Medicine 11/10/[address] [place] [phone] documented as of this encounter
--- OUTSIDE RECORDS SUMMARY | 2022-01-31 16:02 | XMS_ITS | Encounter Summary ---
:1950 [place] [address] Care Team Providers Name Role Phone Katia Mccallum Primary Care Provider Encounter Details Date Type Department Care Team Description 07/23/2021 Notes Only Radiology at [facility] Mykel Stern [facility] [place] [phone] RADIOLOGY [phone] [place], [place] [address] (Wo rk) Social History Tobacco [...] were requested by Dr. Virginia Price of [facility]. Unclear follow up in our system; [...] Chest Tube/Pleural Drain 07/10/2021 Vick Boss MD [facility] RAD CT SCAN ??? CT PERITONEAL DRAINAGE 07/10/2021 CT Guided Drain Peritoneal 07/10/2021 Vick Boss MD [facility] RAD CT SCAN Medications: Allergies: Patient has [...] on 07/10/21. Now presenting for evaluation of thegallbladder fossa [...] on filedocumented in this encounter Care Teams Radio Adjuster Relationship Specialty Start Date End Date Katia Mccallum PA PCP - General General Internal Medicine 11/10/[address] [place] [phone] documented as of this encounter
--- OUTSIDE RECORDS SUMMARY | 2022-01-31 16:02 | XMS_ITS | Encounter Summary ---
:1950 Author Organization [facility] [place] [address] Care Team Providers Name Role Phone Katia Mccallum Primary Care Provider Reason for Referral Diagnostic Test (Routine) - Closed Specialty Diagnoses / Procedures Referred By Contact Refer red To Contact Radiology Diagnoses Abdominal visceral abscess Virginia Price, [facility] Rad Ct Scan Procedures CT Guided Drain Peritoneal [address] [place] [address] [address] [place] [address] Referral ID Status Reason Start Date Expiration Date Visits V isits Requested Authorized [id number] Closed Specialty 07/09/2021 01/09/2023 1 1 Service Requested Reason for Visit Diagnostic Test (Routine) - Closed Specialty Diagnoses / Procedures Referred By Contact Refer effie To Contact Radiology Diagnoses Abdominal visceral abscess Virginia Price DO [facility] Rad Ct Scan Procedures CT Guided Drain Peritoneal [address] [place] [address] [address] [place] [id number] Referral ID Status Reason Start Date Expiration Date Visits V isits Requested Authorized [id number] Closed Specialty 07/09/2021 01/09/2023 1 1 Service Requested Encounter Details Date Type Department Care Team Description 07/10/[address] [facility] [place] [facility] Virginia Price, Abdominal visceral [facility] abscess (Primary Dx) Drive [address] [place] [address] [address] [phone] [facility] [address] Social History Tobacco Use Types Packs/Day Years [...] is during regular office hours, please call [phone]. If it is after regular office hours, oron weekends or holidays, please call [phone] and ask to speak to the Bean Picker Machine Operator on callfor Interventional Radiology. XX You have [...] of : 1950 AGE: 70 y.o. [facility] [address] [place] [address] (home) Mobile: No relevant phone numbers on file. Referring Provider: Virginia Price REASON FOR VISIT: Order Questions Answers Where will study be performed? [facility] Rad[facility] [120] Is the patient on anticoagulant [...] Questions Answers Where will study be performed? [facility] [120] Is the patient on anticoagulant [...] Questions Answers Where will study be performed? [facility] [120] Is the patient on anticoagulant [...] culture Complications: No immediate Plan/Disposition: Return to [facility] GB fossa drain to bulb suction [...] of cloudy brown fluid. 2. ??Left-sided 10 Gambian chest tube guicho cement, yielding 30 mL of cloudy brown. Plan: 1. ??To IR recovery then transfer back [facility]. 2. ??Awaiting return call from reji stroud [...] who have questions please contact the health career development associate that requested your imaging first. ? Narrative [...] IMPRESSION 1. Percutaneous placement of a 10 Gambian drainage catheter into gallbladder fossa abscess/biloma, yielding 120 mL of cloudy brown fluid. 2. Left-sided [address], yielding 30 mL of cloudy brown. Plan: 1. To IR recovery then transfer back to [facility]. 2. Awaiting return call from requesting provider to discuss local follow-up of drains versus return to [facility] IR for drain follow-up. PROCEDURE SUMMARY: - [...] ho have questions please contact the health career development associate that requested your imaging first. Virginia Price [...] of cloudy brown fluid. 2. ??Left-sided 10 Gambian chest tube guicho cement, yielding 30 mL of cloudy brown. Plan: 1. ??To IR recovery then transfer back [facility]. 2. ??Awaiting return call from reji stroud [...] who have questions please contact the health career development associate that requested your imaging first. ? Narrative [...] IMPRESSION 1. Percutaneous placement of a 10 Gambian drainage catheter into gallbladder fossa abscess/biloma, yielding 120 mL of cloudy brown fluid. 2. Left-sided [address] ment, yielding 30 mL of cloudy brown. Plan: 1. To IR recovery then transfer back to [facility]. 2. Awaiting return call from requesting [...] Radiation Dose CT dose length product (mGy-cm): 1968 Additional Details Additional description of procedure: Non [...] ho have questions please contact the health career development associate that requested your imaging first. Virignia Price DO IMG CT ORDERABLES Anaerobic Culture (07/10/2021 11:45 AM EDT) [facility] Method Time Signature Anaerobic No anaerobic [facility] Culture organisms [facility] LABORATORY Specimen Anatomical Collection Method Collection Time Receive d Time (Source) Location / / Volume Laterality Fluid 07/10/2021 11:45 07/10/2021 AM EDT 12:24 PM EDT Comment: Left chest tube placement. Resulting Agency Comment Spec In Lab Vick Boss MD MICROBIOLOGY - GENERAL ORDER IRWIN Performing Organization Address City/[facility]/[place] [address] Body Fluid Culture, Aerobic (07/10/2021 11:45 AM EDT) Component Value Ref Test Analysis Performed At [facility] Range Method Time Signature Body Fluid No growth TAJ Culture [facility] Gram Stain Cytocentrifuge Gram Stain performed [facility] No Neutrophils seen. [place] No microorganisms seen. [facility] LABORATORY Specimen Anatomical Collection Method Collection Time Receive d Time (Source) Location / / Volume Laterality Fluid 07/10/2021 11:45 07/10/2021 AM EDT 12:24 PM EDT Comment: Left chest tube placement. Resulting Agency Comment Spec In Lab Vick Boss MD MICROBIOLOGY - GENERAL ORDER IRWIN Performing Organization Address City/[facility]/[place] [address] Anaerobic Culture (07/10/2021 11:20 AM EDT) [employer] Method Time Signature Anaerobic No anaerobic TAJ [place] Culture organisms [facility] LABORATORY Specimen (Source) Anatomical Collection Method Collection [...] Organization Address City/State/[place] [address] (ABNORMAL) Body Fluid Culture, Aerobic (07/10/2021 11:20 AM EDT) Component Value Ref Test Analysis Performed At [facility] [employer] Range Method Time Signature Body Fluid Few Escherichia TAJ Culture coli (A) [facility] Gram Stain Cytocentrifuge Gram Stain performed TAJ Neutrophils seen [place] Few Gram Negative Rods [facility] Organism Escherichia coli TAJ (A) [facility] Specimen (Source) Anatomical Collection Method Collection [...] Organization Address City/State/[place] [address] documented in this encounter [...] PRN, Starting on Fri07/10/21 at 1004, Until 5/11/22 at 0434, Sleep, - Start dose; 1 [...] mg documented in this encounter Care Teams Grinding Operator Relationship Specialty Start Date End Date Katia Mccallum PA PCP - General General Internal Medicine 11/10/18 [address] [place] [phone] documented as of this encounter
[2022-02-02 01:51] LABS: Influenza A RNA Result Negative (Negative); Influenza B RNA Result Negative (Negative)
[2022-02-02 14:03] LABS: RSV RNA Result Positive (Negative)
== END 2022-01-31 15:49 | disposition home or self-care (01) ==
LOC: LBN 15:48
PROVIDERS: Visit Provider Nurse Practitioner Gerontology
DX: F10.10 Alcohol abuse, uncomplicated (principal); K81.0 Acute cholecystitis; R05.9 Cough, unspecified
CPT/HCPCS: 87631

== ENCOUNTER 2022-02-04 21:50 | Outpatient (REF) | payer MEDICARE, MEDICAID, SELFPAY ==
[2022-02-04 20:26] LABS: Absolute Basophil Count 0.05 10^3/uL (0.0-0.2); Absolute Lymphocyte Count 3.39 10^3/uL (1.2-3.4); Absolute Monocyte Count 1.44 10^3/uL (0.1-0.8); Absolute Neutrophil Count 6.84 10^3/uL (1.2-6.7); Basophils % 0.4; Eosinophils % 0.8; HCT 38.3 % (40.0-50.0); HGB 12.7 g/dL (13.5-17.5); Immature Grans % 0.8; Lymphocytes % 28.5; MCH 33.7 pg (27.0-33.0); MCHC 33.2 % (32.0-36.0); MCV 102 fL (80-95); MPV 11.4 fL (8.0-11.0); Monocytes % 12.1; Neutrophils % 57.4; Platelet Count 260 10^3/uL (130-400); RBC 3.77 10^6/uL (4.36-5.78); RDW 11.9 % (11.8-14.1); RDW-SD 44.8 fL; WBC 11.91 10^3/uL (4.4-10.8)
[2022-02-04 20:46] LABS: ALT 49 U/L (16-63); AST 29 U/L (15-37); Albumin 3.2 g/dL (3.4-5.0); Alkaline Phosphatase 97 U/L (46-116); Anion Gap 7.5 mmol/L (3-11); BUN 13 mg/dL (7-18); Bilirubin, Total 0.2 mg/dL (0.2-1.0); CO2 28.5 mmol/L (21.0-32.0); CREATININE 0.7 mg/dL (0.70-1.30); Calcium 8.7 mg/dL (8.5-10.1); Chloride 96 mmol/L (98-107); Estimated GFR 98.51 (mL/min/1.73m2); Glucose 111 mg/dL (74-106); Potassium 3.9 mmol/L (3.5-5.1); Sodium 132 mmol/L (136-145); Total Protein 7.6 g/dL (6.4-8.2)
[2022-02-05 13:56] LABS: NT-proBNP 779 pg/mL (<300)
== END 2022-02-04 21:51 | disposition home or self-care (01) ==
LOC: LBN 21:50
PROVIDERS: Visit Provider Nurse Practitioner Gerontology
DX: R05.1 Acute cough (principal); R68.89 Other general symptoms and signs; J44.9 Chronic obstructive pulmonary disease, unspecified
CPT/HCPCS: 80053; 83880; 85025

== ENCOUNTER 2022-02-12 18:51 | Outpatient (REF) | payer MEDICARE, MEDICAID, SELFPAY ==
[2022-02-12 19:25] LABS: ALT 46 U/L (16-63); AST 27 U/L (15-37); Alkaline Phosphatase 92 U/L (46-116); Anion Gap 6.6 mmol/L (3-11); BUN 16 mg/dL (7-18); Bilirubin, Total 0.3 mg/dL (0.2-1.0); CO2 27.4 mmol/L (21.0-32.0); CREATININE 0.7 mg/dL (0.70-1.30); Calcium 8.5 mg/dL (8.5-10.1); Chloride 95 mmol/L (98-107); Estimated GFR 98.51 (mL/min/1.73m2); Glucose 119 mg/dL (74-106); NT-proBNP 379 pg/mL (<300); Potassium 4.6 mmol/L (3.5-5.1); Sodium 129 mmol/L (136-145)
== END 2022-02-12 18:52 | disposition home or self-care (01) ==
LOC: LBN 18:51
PROVIDERS: Visit Provider Nurse Practitioner Gerontology
DX: R05.9 Cough, unspecified (principal); J06.9 Acute upper respiratory infection, unspecified
CPT/HCPCS: 80053; 83880

== ENCOUNTER 2022-03-06 17:56 | Outpatient (REF) | payer MEDICARE, MEDICAID, SELFPAY ==
[2022-03-06 18:19] LABS: Abs Immature Grans 0.04 10^3/uL (0.0-0.06); Absolute Basophil Count 0.03 10^3/uL (0.0-0.2); Absolute Lymphocyte Count 0.71 10^3/uL (1.2-3.4); Absolute Monocyte Count 0.22 10^3/uL (0.1-0.8); Absolute Neutrophil Count 6.18 10^3/uL (1.2-6.7); Basophils % 0.4; HCT 37.8 % (40.0-50.0); HGB 12.8 g/dL (13.5-17.5); Immature Grans % 0.6; Lymphocytes % 9.9; MCH 33.8 pg (27.0-33.0); MCHC 33.9 % (32.0-36.0); MCV 100 fL (80-95); MPV 11.3 fL (8.0-11.0); Monocytes % 3.1; Platelet Count 283 10^3/uL (130-400); RBC 3.79 10^6/uL (4.36-5.78); RDW 11.8 % (11.8-14.1); RDW-SD 43.1 fL; WBC 7.18 10^3/uL (4.4-10.8)
[2022-03-06 18:42] LABS: ALT 28 U/L (16-63); AST 28 U/L (15-37); Albumin 3.2 g/dL (3.4-5.0); Alkaline Phosphatase 103 U/L (46-116); Anion Gap 8.7 mmol/L (3-11); BUN 10 mg/dL (7-18); Bilirubin, Total 0.2 mg/dL (0.2-1.0); CO2 25.3 mmol/L (21.0-32.0); CREATININE 0.8 mg/dL (0.70-1.30); Calcium 8.7 mg/dL (8.5-10.1); Chloride 101 mmol/L (98-107); Estimated GFR 94.62 (mL/min/1.73m2); Glucose 150 mg/dL (74-106); NT-proBNP 1771 pg/mL (<300); Potassium 4.3 mmol/L (3.5-5.1); Sodium 135 mmol/L (136-145); Total Protein 7.6 g/dL (6.4-8.2)
== END 2022-03-06 17:57 | disposition home or self-care (01) ==
LOC: LBN 17:56
PROVIDERS: Visit Provider Nurse Practitioner Gerontology
DX: J06.9 Acute upper respiratory infection, unspecified (principal); R05.8 Other specified cough; E11.22 Type 2 diabetes mellitus with diabetic chronic kidney disease; N18.9 Chronic kidney disease, unspecified; R06.89 Other abnormalities of breathing
CPT/HCPCS: 80053; 83880; 85025

== ENCOUNTER 2022-03-12 12:38 | Inpatient (IN) | payer MEDICARE, MEDICAID, SELFPAY ==
[2022-03-12] VITALS (40 sets, daily range): BP systolic 92–137; BP diastolic 58–95; PULSE 73–117; RESP 13–32; TEMP 35.9–36.9; O2SAT 89–95
--- NOTE | 2022-03-12 12:30 | DI.RAD_ITS ---
Exam(s) XR PORTABLE CHEST AP EXAM: XR PORTABLE CHEST AP CLINICAL HISTORY: Cough, PUI, R/O Pneumonia TECHNIQUE: 2D digital imaging was performed of the chest. One image was obtained. An AP view was ob tained. COMPARISON: CR XR PORTABLE CHEST AP from 07/12/2021 FINDINGS: MEDIASTINUM: Normal. HEART: Normal. Cardiac pacing wires are stable in position. PULMONARY VASCULATURE: Normal. LUNGS: Chronic parenchymal changes are seen in the lungs bilaterally. The left hemidiaphragm is obsc ured and a left basilar infiltrate should be considered. PLEURAL SPACE: No pleural effusion or pneumothorax. There again seen right pleural calcifications. BONE:Within normal limits for the patient's age. OTHER FINDINGS:Normal. IMPRESSION: Suspected left basilar infiltrate. DATA REPOSITORY: RADIATION DOSE DELIVERED:
--- NOTE | 2022-03-12 12:53 | W.ED.GENAD ---
Discharge Plan Disposition Patient Disposition: Admit to [facility] Condition: Stable Discharge Details Clinical Impression: Left lower lobe pneumonia Admit Date/Time: 03/12/22 16:41 Admit Provider: Jessi Cantu Attending Provider: Jessi Cantu Primary Care Provider: Unknown,Unknown ED Provider: Whitney Aguilar Discharge Data Discharge Date/Time-TO BE ENTERED AT DEPARTURE: 03/12/22 18:00 Medical Decision Making 71-year-old male history of COPD, obesity, hypertension, trapped lung, cardiac pacemaker and coronary artery disease and empyema with a recent surgical history [facility] with chief complaint of increased shortness of breath, productive cough and wheezing which is worsened over the last week. He reports he has been doing albuterol inhalers at the [facility] and received a DuoNeb by EMS prior to arrival which did little to nothing to help his symptoms. He has been unable to tolerate oxygen via nasal cannula or facemask. He is satting 89 to 90% on room air. staff attorney placed patient on a simple facemask at 2 L brought his O2 sat up to 90 to 93%. Blood cultures x2 ordered and are pending at this time, Lab called with white blood cell count of 38, RBCs 4.06 hemoglobin 13.5 hematocrit 39.5, MCV MCH elevated, absolute neutrophils 30.79, sodium 129, chloride 92, BUN 26 creatinine 0.9, GFR 91, glucose 123 bilirubin 1.1 magnesium 1.9, initial troponin less than 50 negative COVID flu RSV. Chest x-ray shows a probable left lower basilar infiltrate. Ceftriaxone and azithromycin ordered. Spoke with Dr. Cantu regarding patient case in detail she would like to wait for the CT chest abdomen pelvis. I did order 20 mg of Lasix due to the proBNP of 3800, CT shows multifocal pneumonia no evidence of intra-abdominal abscess however there is some slight thickening of the distal sigmoid colon and rectum. 1630: Spoke with Dr. Cantu regarding patient's CT results she verbalizes understanding and is in agreement for admission. Discussed plan of care with patient who is in agreement with plan and verbalizes understanding. He is sitting up on bedside commode at time of my reevaluation. This text was generated using [employer] system, please disregard any oddities of phrase or misspellings. Medical Records Medical records reviewed: Yes I reviewed the patient's medical records. Imaging Data Radiologic Study: Imaging: X-Ray Radiologist's impression: EXAM:? XR PORTABLE CHEST AP CLINICAL HISTORY:? Cough, PUI, R/O Pneumonia TECHNIQUE:? 2D digital imaging was performed of the chest. One image was obtained.? An AP view was obtained. COMPARISON:? CR XR PORTABLE CHEST AP from 07/12/2021 FINDINGS: MEDIASTINUM: Normal.? HEART: Normal. Cardiac pacing wires are stable in position. PULMONARY VASCULATURE: Normal. LUNGS: Chronic parenchymal changes are seen in the lungs bilaterally.? The left hemidiaphragm is obscured and a left basilar infiltrate should be considered. ? PLEURAL SPACE: No pleural effusion or pneumothorax. There again seen right pleural calcifications. BONE:Within normal limits for the patient's age. OTHER FINDINGS:Normal.? IMPRESSION: Suspected left basilar infiltrate.? Radiologic Study #2: Imaging: CT Scan Radiologist's impression: CT chest rule out PE CT abdomen pelvis IMPRESSION: 1. No evidence of a central pulmonary embolism.? Evaluation of the subsegmental pulmonary arteries is limited by patient motion artifact. 2. No evidence of an aortic dissection.? 3. Multifocal pneumonia.? 4. Thickening of the wall of the distal sigmoid and rectum.? An infectious or inflammatory process should be considered.? Please correlate clinically. 5. Findings were discussed with Whitney Aguilar at 3:50 p.m. on 03/12/2022. Lab Data Lab results reviewed: Yes I reviewed the patient's lab results. Labs: 03/12/22 12:59 Blood Blood Culture - Pending 03/12/22 12:59 Blood Blood Culture - Pending Laboratory Tests Range/Units 03/12/22 03/12/22 13:05 13:05 WBC (4.4-10.8) 10^3/uL 38.01 H* RBC (4.36-5.78) 10^6/uL 4.06 L Hgb (13.5-17.5) g/dL 13.5 Hct (40.0-50.0) % 39.5 L MCV (80-95) fL 97 H MCH (27.0-33.0) pg 33.3 H MCHC (32.0-36.0) % 34.2 RDW (11.8-14.1) % 12.2 Plt Count (130-400) 10^3/uL 254 MPV (8.0-11.0) fL 10.6 Immature Gran % See Differential Neutrophils % 81.0 Lymphocytes % 5.0 Monocytes % 10.0 Eosinophils % 2.0 Basophils % 1.0 Nucleated RBC % (0.0-0.3) % 0.0 Absolute Neutrophils (1.2-6.7) 10^3/uL 30.79 H Absolute Lymphocytes (1.2-3.4) 10^3/uL 1.90 Absolute Monocytes (0.1-0.8) 10^3/uL 3.80 H Absolute Eosinophils (0.0-0.7) 10^3/uL 0.76 H Absolute Basophils (0.0-0.2) 10^3/uL 0.38 H RBC Morphology Normal Sodium (136-145) mmol/L 129 L Potassium (3.5-5.1) mmol/L 3.8 Chloride (98-107) mmol/L 92 L Carbon Dioxide (21.0-32.0) mmol/L 28.9 Anion Gap (3-11) mmol/L 8.1 BUN (7-18) mg/dL 26 H Creatinine (0.70-1.30) mg/dL 0.9 Est GFR (CKD-EPI 2020) (mL/min/1.73m2) 91.31 Glucose (74-106) mg/dL 123 H Calcium (8.5-10.1) mg/dL 8.9 Magnesium (1.8-2.4) mg/dL 1.9 Total Bilirubin (0.2-1.0) mg/dL 1.1 H AST (15-37) U/L 20 ALT (16-63) U/L 28 Alkaline Phosphatase (46-116) U/L 83 Troponin I (<or=60) ng/L < 50 Total Protein (6.4-8.2) g/dL 8.0 Albumin (3.4-5.0) g/dL 3.0 L HPI General Mode of arrival: EMS. Date/Time Provider Initiated Documentation: 03/12/22 12:52. Limitations to Documentation: no limitations. Information obtained by: patient, EMS, RN notes reviewed and old records reviewed. HPI Narrative: 71-year-old male presents to the ER via EMS from the [facility] with a chief complaint of cough, increased shortness of breath which patient reports has been worsening over the last week. He had a cholecystectomy in June. He does have a history of COPD, depression, hypertension, obesity, he is DNR/DNI he also has a cardiac pacemaker and coronary artery disease. He states that he has been using albuterol inhalers with little to no relief. He was given a DuoNeb via EMS prior to arrival which he reports did not help. Also per RN note he was unable to tolerate oxygen via nasal cannula or facemask due to increased anxiety. He is speaking in full sentences no increased work of breathing he does have some scattered expiratory wheezes bilaterally. He denies any chest pain denies any diarrhea. He does endorse some mild nausea. Related Data Home Medications Medication Instructions Recorded Confirmed acetaminophen 500 mg tablet 1,000 mg PO TID PRN 03/29/21 03/13/22 (Tylenol Extra Strength) albuterol sulfate 90 mcg/actuation 2 inh inhalation TID 03/29/21 03/13/22 breath activated powder inhaler calcium carbonate 215 mg calcium 500 mg PO Q6H PRN 03/29/21 03/13/22 (500 mg) chewable tablet fluticasone propionate 50 1 spray intranasal BID 03/29/21 03/13/22 mcg/actuation nasal spray,suspension magnesium oxide 800 mg PO DAILY 03/29/21 03/13/22 pantoprazole 40 mg tablet,delayed 40 mg PO DAILY 03/29/21 03/13/22 release polyethylene glycol 3350 17 gram 17 g PO DAILY PRN 03/29/21 03/13/22 oral powder packet (Miralax) sennosides 8.6 mg-docusate sodium 2 tab-cap PO DAILY 03/29/21 03/13/22 50 mg tablet (Senexon-S) sertraline 25 mg tablet 25 mg PO DAILY 03/29/21 03/13/22 vitamin B complex (Ultra B-100 1 tab PO DAILY 03/29/21 03/13/22 Complex ER tablet,extended release) fluticasone fur. 200 mcg-umeclid 1 inh inhalation DAILY 05/02/21 03/13/22 62.5 mcg-vilant 25 mcg inhalat.powder (Trelegy Ellipta) metoprolol succinate 200 mg 200 mg PO DAILY 05/02/21 03/13/22 tablet,extended release 24 hr melatonin 3 mg capsule 3 mg PO HS 05/10/21 03/13/22 beer PO 10/18/21 12/06/21 colestipol 1 gram tablet 2 g PO BID 12/06/21 03/13/22 hzgmiy-yjvviyly-scqliuh 1 cap PO TID #90 caps 12/06/21 03/13/22 12,000-38,000-60,000 unit capsule,delayed rel (Creon) spironolactone 25 mg tablet 75 mg PO DAILY 12/06/21 03/13/22 sucralfate 1 gram tablet 1 g PO QID 12/06/21 03/13/22 dextromethorphan-guaifenesin 10 10 ml PO Q4H PRN 03/12/22 03/13/22 mg-100 mg/5 mL oral syrup (Tussin DM) ipratropium 0.5 mg-albuterol 3 mg 3 ml inhalation TID 03/12/22 03/13/22 (2.5 mg base)/3 mL nebulization soln oxymetazoline 0.05 % nasal spray 1 spray intranasal Q12H 03/12/22 03/13/22 (Afrin Sinus (oxymetazoline)) tramadol 50 mg tablet 50 mg PO BID 03/13/22 03/13/22 Previous Rx's Medication Instructions Recorded nhxtly-pytmddmj-hhxapra 1 cap PO TID #90 caps 12/06/21 12,000-38,000-60,000 unit capsule,delayed rel (Creon) Allergies Allergy/AdvReac Type Severity Reaction Status Date / Time No Known Allergies Allergy Verified 10/19/21 08:30 General Stated Complaint: SOB INDY: 3 Review of Systems All systems reviewed & are unremarkable except as noted in HPI and below Cardiovascular Cardiovascular: Denies chest pain, Reports dyspnea and Reports orthopnea Respiratory Respiratory: Reports as per HPI, Reports cough, Reports excessive phlegm production and Reports dyspnea Gastrointestinal Gastrointestinal: Denies abdominal pain, Denies melena, Denies hematochezia, Denies diarrhea and Denies vomiting PFSH All Active Problems (Updated 03/14/22 @ 14:43 by Liliya Spicer NP) Hypertension (Chronic) Discharge planning issues (Acute) DVT prophylaxis (Acute) Left lower lobe pneumonia (Acute) Bloating (Acute) Heme positive stool (Acute) Infected sebaceous cyst of skin (Acute) Trapped lung (Acute) Sacroiliitis (Acute) COPD (chronic obstructive pulmonary disease) (Chronic) Depression (Chronic) Lymphedema (Acute) HTN (hypertension) with goal to be determined (Chronic) Obesity (Chronic) DNR (do not resuscitate) (Acute) Presence of cardiac pacemaker (Chronic) [employer] PPM MRI model L111 Serial # [id number] placed dual chamber 04/30/2017 for CHB at [facility]. 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 Most likely this is inflammatory tissue and not actually fluid. pt has had multiple taps. He was on a prolonged course of IV abx and has failed to resolve. This is a sequelae of this pericardial tamponade following disruption of his RA lead from pacemaker insertion. Hyponatremia, hypo-osmolarity, or hypo-osmolar hyponatremia Recurrent left pleural effusion Surgical History History of permanent cardiac pacemaker placement with subsequent repositioning S/P laparoscopic cholecystectomy Social History Smoking/Tobacco Use Status: Never Smoking risk assessment performed?: Yes Alcohol Intake: current Alcohol Intake frequency: 0-2 drinks per day Alcohol type: beer Housing: assisted living facility Pets and animals: No Do you feel safe at home: Yes Do you feel safe in your relationship?: Yes Exam Narrative Exam Narrative: Constitutional: Alert and oriented x3. Appears stated age. Normal body habitus. Head: Normocephalic, no trauma. Eyes: Pupils PERRL, Red reflex noted, EOM's intact. Eyelids symmetrical without lesions, discharge, or swelling. ENT: Bilateral TM's WNL, External ear normal to inspection, no mastoid TTP, swelling, or erythema, Nasal skin over growth noted, appears chronic, no nasal discharge. poor dentition, Posterior pharynx WNL, no exudate. Chest: RRR, Normal S1, S2, distal pulses intact. Resp: Lungs diminished to auscultation bilaterally rhonchi in bases, scattered expiratory wheezes Abdomen: Soft, non-distended, Normoactive bowel sounds all 4 quads. healing laproscopic incisions noted to RUQ, no surrounding erythema or induration. Musculoskeletal: unable to assess gait, patient states he usually uses a wheelchair, 5/5 strength to all four extremities. Skin: No suspicious rashes or lesions. Capillary refill less than 2 sec. Neurologic: Cranial nerves II-XII intact. Alert and oriented x 3. Motor: No deficits noted. Sensory: Intact bilaterally all 4 extremities. Reflexes: DTR's intact bilaterally.. Hematologic/Lymphatic: No ecchymosis, no lymphadenopathy. Course Vital Signs Vital signs: Vital Signs Temperature 36.9 C 03/12/22 12:37 Pulse 110 H 03/12/22 12:37 Respiratory Rate 27 H 03/12/22 12:37 Blood Pressure 111/71 03/12/22 12:37 Pulse Oximetry 90 L 03/12/22 12:37 Temperature 36.9 C 03/12/22 12:37 Temperature Source Skin 03/12/22 12:37 Pulse 110 H 03/12/22 12:37 Respiratory Rate 27 H 03/12/22 12:37 Respiratory Effort 03/12/22 12:48 Blood Pressure 111/71 03/12/22 12:37 Blood Pressure Position Sitting 03/12/22 12:37 Pulse Oximetry 90 L 03/12/22 12:37 Oxygen Delivery Method Room Air 03/12/22 12:37 Oxygen Flow Rate 0 03/12/22 12:37 Pain Level 0 03/12/22 12:37
[2022-03-12 13:19] LABS: Abs Immature Grans 0.47 10^3/uL (0.0-0.06); HCT 39.5 % (40.0-50.0); HGB 13.5 g/dL (13.5-17.5); MCH 33.3 pg (27.0-33.0); MCHC 34.2 % (32.0-36.0); MCV 97 fL (80-95); MPV 10.6 fL (8.0-11.0); Platelet Count 254 10^3/uL (130-400); RBC 4.06 10^6/uL (4.36-5.78); RDW 12.2 % (11.8-14.1); RDW-SD 43.1 fL
[2022-03-12 13:22] LABS: WBC 38.01 10^3/uL (4.4-10.8)
[2022-03-12] MEDS: methylPREDNISolone SUCC 125 MG VIAL IVP (13:39)
[2022-03-12] MEDS: Normal Saline Flush 10 ML SYR IVP ×3 (13:42→19:56)
[2022-03-12 13:44] LABS: ALT 28 U/L (16-63); AST 20 U/L (15-37); Alkaline Phosphatase 83 U/L (46-116); Anion Gap 8.1 mmol/L (3-11); BUN 26 mg/dL (7-18); Bilirubin, Total 1.1 mg/dL (0.2-1.0); CO2 28.9 mmol/L (21.0-32.0); CREATININE 0.9 mg/dL (0.70-1.30); Calcium 8.9 mg/dL (8.5-10.1); Chloride 92 mmol/L (98-107); Estimated GFR 91.31 (mL/min/1.73m2); Glucose 123 mg/dL (74-106); Magnesium 1.9 mg/dL (1.8-2.4); Potassium 3.8 mmol/L (3.5-5.1); Sodium 129 mmol/L (136-145); Troponin I < 50 ng/L (<or=60)
[2022-03-12 13:50] LABS: Absolute Basophil Count 0.38 10^3/uL (0.0-0.2); Absolute Eosinophil Count 0.76 10^3/uL (0.0-0.7); Absolute Neutrophil Count 30.79 10^3/uL (1.2-6.7); Diff Comment Manual Differential
--- NOTE | 2022-03-12 13:50 | DI.CT_ITS ---
Exam(s) CT CHEST PE ABD PELVIS W EXAM: CT CHEST PE ABD PELVIS W CLINICAL HISTORY: SOB, hx of Cholecystectomy, Abdominal pain. TECHNIQUE: Imaging Protocol: Axial CT angiography was performed with multi-slice acquisition and mu lti-planar and/or 3D reconstructions. CONTRAST MATERIAL: Intravenous: Omnipaque 350contrast volume:100 mL COMPARISON: CT CT CHEST/ABD/PEL WO from 07/09/[address] ABDOMEN PELVIS W from 01/22/2022 CR XR PORTABLE CHEST AP from 03/12/2022 FINDINGS: The examination is limited due to patient motion artifact. CHEST: Tracheobronchial tree: Patent where visualized. Pulmonary parenchyma: There is a multifocal infiltrate present. No architectural distortion. Pulmonary Arteries: Evaluation of subsegmental pulmonary arteries is limited due to patient motion. No central pulmonary embolus is identified. Mediastinum and Taylor: No dominant adenopathy or fluid collection. The esophagus is unremarkable. Visualized thyroid gland: Unremarkable. Pleura: There again seen pleural calcifications in the right hemithorax. There is a persistent in ca psulated left pleural effusion. No right pleural effusion. No pneumothorax. Heart: Cardiomegaly. Coronary artery calcifications are present. No pericardial effusion. Aorta: The ascending thoracic aorta measures 4.5 x 4.8 cm. No evidence of dissection. Atheroscleros is is present. Bones: Within normal limits for the patient's age. Soft tissues: Cardiac battery pack is seen overlying the left chest wall. Gynecomastia. ABDOMEN: Liver: Normal density. No measurable mass. Portal, Superior Mesenteric, and Splenic Veins: Unremarkable. Gallbladder and Biliary Tract: Status post cholecystectomy. No biliary ductal dilatation. Pancreas: Normal density, no abnormal calcifications or inflammatory process. Spleen: Normal. Adrenals: No masses seen. Kidneys: Normal size, contour and axis. No radiodense stones or obstructive uropathy. No masses seen. Abdominal Aorta: Abdominal portion non-dilated. Atherosclerosis is present. Bowel: There is no evidence of bowel obstruction. There is thickening of the wall of the distal sigm oid and rectum. No evidence of appendicitis. Peritoneal Cavity: No ascites, collection or mesenteric inflammatory response. No free air. Lymph Nodes: Within normal limits. Bones: Within normal limits for the patient's age. There is an old compression deformity of the supe rior endplate of L2. It is unchanged. Soft Tissues: There is a small fat containing umbilical hernia. There are stable fluid collection se en in the soft tissues posterior to the right gluteal muscles. There is also persistent fluid collec tion posterior to the sacrum. PELVIS: Bladder: Symmetric distention, no gross wall thickening. Reproductive Organs: Unremarkable as visualized. Lymph Nodes: Within normal limits. Bones: Within normal limits. IMPRESSION: 1. No evidence of a central pulmonary embolism. Evaluation of the subsegmental pulmonary arteries is limited by patient motion artifact. 2. No evidence of an aortic dissection. 3. Multifocal pneumonia. 4. Thickening of the wall of the distal sigmoid and rectum. An infectious or inflammatory process sh ould be considered. Please correlate clinically. 5. Findings were discussed with Whitney Aguilar at 3:50 p.m. on 03/12/2022. RADIATION DOSE DELIVERED: 2,501.57mGy.cm Total DLP DATA REPOSITORY: All CT scans at this facility are submitted to the National Radiology Data Registry (NRDR) Dose Index Registry (DIR) with the [employer] (ACR). RADIATION OPTIMIZATION: All CT scans at this facility use at least one of these dose optimization te chniques: automated exposure control; mA and/or kV adjustment per patient size (includes targeted exa ms where dose is matched to clinical indication); or iterative reconstruction.
[2022-03-12 13:51] LABS: RBC Morphology Normal
[2022-03-12 13:53] LABS: COVID-19 PCR Negative (Negative); Influenza A PCR Negative (Negative); Influenza B PCR Negative (Negative); RSV PCR Negative (Negative)
[2022-03-12 13:54] LABS: Source Nasopharynx
[2022-03-12 14:22] LABS: Lactate 1.5 mmol/L (0.6-1.4)
[2022-03-12 14:45] LABS: NT-proBNP 3836 pg/mL (<300)
[2022-03-12] MEDS: Omnipaque 350 MG/ML 500 ML BTL-Imaging package IJ (15:02)
[2022-03-12] MEDS: Normal Saline - Diluent 50 ML VIAL IJ (15:03)
[2022-03-12] MEDS: Normal Saline 500 ML IV (15:32)
[2022-03-12] MEDS: cefTRIAXone 1 GM/50 ML BAG IVPB (15:32)
[2022-03-12] MEDS: Furosemide 20 MG/2 ML VIAL IVP (16:08)
[2022-03-12] MEDS: AZITHROMYCIN 500 MG in Normal Saline 250 ML 250 MG IVPB (16:08)
[2022-03-12 16:39] LABS: Troponin I < 50 ng/L (<or=60)
--- NOTE | 2022-03-12 17:02 | NUR.NOTE ---
Nursing Note: Pt output 600cc in urinal, also inc. of urine x3 since IV lasix given, provider aware, pt w/o complaints at this time.
--- NOTE | 2022-03-12 17:41 | HPE_ITS ---
Date of service: 03/12/22 Time of Service: 17:41 Assessment and Plan Assessment and plan (1) Left lower lobe pneumonia: Status: Acute Assessment and plan: WBC 38.1 Chest xray - Pneumonia left basilar infiltrate per CT - multifocal pneumonia, no PE Azithromycin, cefepime, Vancomycin - BC and MRSA pending (ceftriaxone given in the ED) Prednisone Furosemide given in ED - monitor lung sounds, he takes spironolactone 75 mg daily Albuterol and Duoneb PRN Guaifenesin for cough (2) Fluid overload: Status: Acute Assessment and plan: Sodium 129 Continue spironolactone Hold IVF (3) Abdominal pain: Status: Acute Assessment and plan: per CT - ?Thickening of the wall of the distal sigmoid and rectum.? An infectious or inflammatory process should be considered.? Please correlate clinically. He reports last BM 03/12/22 reported by patient as formed brown and solid He denies pain, abd soft, non tender, BS present- will monitor Consider surgical consult if dev abd pain (4) COPD (chronic obstructive pulmonary disease): Status: Chronic Assessment and plan: As above (5) Hypertension: Status: Chronic Assessment and plan: Continue Lisinopril; monitor BP; monitor renal fxn (6) Depression: Status: Chronic Assessment and plan: Continue Sertraline (7) Obesity: Status: Chronic Assessment and plan: Heart Healthy diet DASH diet (8) Coronary artery disease: Status: Chronic Assessment and plan: continue Metoprolol - telemetry; monitor HR/BP (9) DVT prophylaxis: Status: Acute Assessment and plan: Enoxaparin 40 mg daily (10) Discharge planning issues: Status: Acute Assessment and plan: Home when medically stable. Discussed with Dr Cantu History of Present Illness History of Present Illness Chief Complaint: Cough; shortness of breath Narrative: This 71-year-old male presents to [facility] ED via EMS [facility] with past medical history of COPD, depression, hypertension, obesity, he is DNR/DNI he also has a cardiac pacemaker and coronary artery disease, with a chief complaint of cough, increased shortness of breath which patient reports has been worsening over the last week.? He had a cholecystectomy in June.? He states that he has been using albuterol inhalers with little to no relief.? He was given a DuoNeb via EMS prior to arrival which he reports did not help.? Also per RN note he was unable to tolerate oxygen via nasal cannula or facemask due to increased anxiety.? He is speaking in full sentences no increased work of breathing, he did have some scattered expiratory wheezes bilaterally.? He denied any chest pain, denied any diarrhea, although he did endorse some mild nausea. He is admitted to the medical floor for IV antibiotics and management of his pneumonia. Review of Systems All systems reviewed & are unremarkable except as noted in HPI and below PFSH All Active Problems (Updated 03/12/22 @ 20:50 by Miladys Prado NP) Fluid overload (Acute) Hypertension (Chronic) Discharge planning issues (Acute) DVT prophylaxis (Acute) Left lower lobe pneumonia (Acute) Abdominal pain (Acute) Bloating (Acute) Heme positive stool (Acute) Infected sebaceous cyst of skin (Acute) Trapped lung (Acute) Sacroiliitis (Acute) COPD (chronic obstructive pulmonary disease) (Chronic) Depression (Chronic) Lymphedema (Acute) HTN (hypertension) with goal to be determined (Chronic) Obesity (Chronic) DNR (do not resuscitate) (Acute) Presence of cardiac pacemaker (Chronic) [employer] PPM MRI model L111 Serial # [id number] placed dual chamber 04/30/2017 for CHB at [facility]. 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 Most likely this is inflammatory tissue and not actually fluid. pt has had multiple taps. He was on a prolonged course of IV abx and has failed to resolve. This is a sequelae of this pericardial tamponade following disruption of his RA lead from pacemaker insertion. Hyponatremia, hypo-osmolarity, or hypo-osmolar hyponatremia Recurrent left pleural effusion Surgical History History of permanent cardiac pacemaker placement with subsequent repositioning S/P laparoscopic cholecystectomy Social History Smoking/Tobacco Use Status: Never Smoking risk assessment performed?: Yes Alcohol Intake: current Alcohol Intake frequency: 0-2 drinks per day Alcohol type: beer Housing: assisted living facility Pets and animals: No Do you feel safe at home: Yes Do you feel safe in your relationship?: Yes Meds Allergies and Home Medications Allergies Allergy/AdvReac Type Severity Reaction Status Date / Time No Known Allergies Allergy Verified 10/19/21 08:30 Home Medications Medication Instructions Recorded Confirmed Type acetaminophen 500 mg tablet 1,000 mg PO TID 03/29/21 03/12/22 History (Tylenol Extra Strength) albuterol sulfate 90 mcg/actuation 2 inh inhalation Q4H PRN 03/29/21 03/12/22 History breath activated powder inhaler calcium carbonate 215 mg calcium 430 mg PO QID 03/29/21 03/12/22 History (500 mg) chewable tablet (Antacid (calcium carbonate)) calcium citrate 315 mg-vitamin D3 1 tab PO DAILY 03/29/21 03/12/22 History 5 mcg (200 unit) tablet (Calcium Citrate + D) fluticasone propionate 50 1 spray intranasal BID 03/29/21 03/12/22 History mcg/actuation nasal spray,suspension lisinopril 10 mg tablet 10 mg PO DAILY 03/29/21 03/12/22 History magnesium oxide 800 mg PO BID 03/29/21 03/12/22 History pantoprazole 40 mg tablet,delayed 40 mg PO DAILY 03/29/21 03/12/22 History release polyethylene glycol 3350 17 gram 17 g PO DAILY 03/29/21 03/12/22 History oral powder packet (Miralax) sennosides 8.6 mg-docusate sodium 2 tab-cap PO BID 03/29/21 03/12/22 History 50 mg tablet (Senexon-S) sertraline 25 mg tablet 25 mg PO DAILY 03/29/21 03/12/22 History vitamin B complex (Ultra B-100 1 tab PO DAILY 03/29/21 03/12/22 History Complex ER tablet,extended release) fluticasone fur. 200 mcg-umeclid 1 inh inhalation DAILY 05/02/21 03/12/22 History 62.5 mcg-vilant 25 mcg inhalat.powder (Trelegy Ellipta) metoprolol succinate 200 mg 200 mg PO DAILY 05/02/21 03/12/22 History tablet,extended release 24 hr melatonin 3 mg capsule 3 mg PO HS 05/10/21 03/12/22 History tramadol 50 mg tablet 50 mg PO Q6H PRN #10 tabs 06/28/21 03/12/22 Rx beer PO 10/18/21 12/06/21 History cholestyramine-aspartame 4 gram PO DAILY 10/18/21 12/06/21 History oral powder (Questran Light) colestipol 1 gram tablet 2 g PO BID 12/06/21 03/12/22 History diclofenac sodium 1 % topical gel 4 g topical .twice daily PRN 12/06/21 History hydrocortisone 2.5 % topical cream 1 applic topical BID PRN 12/06/21 03/12/22 History gcitgy-nowtsojm-foixkzi 1 cap PO TID #90 caps 12/06/21 03/12/22 Rx 12,000-38,000-60,000 unit capsule,delayed rel (Creon) nystatin 100,000 unit/gram topical 1 applic topical BID PRN 12/06/21 03/12/22 History powder spironolactone 25 mg tablet 75 mg PO DAILY 12/06/21 03/12/22 History sucralfate 1 gram tablet 1 g PO QID 12/06/21 03/12/22 History dextromethorphan-guaifenesin 10 10 ml PO Q4H PRN 03/12/22 03/12/22 History mg-100 mg/5 mL oral syrup (Tussin DM) fluticasone fur. 200 mcg-umeclid 1 inh inhalation DAILY 03/12/22 03/12/22 History 62.5 mcg-vilant 25 mcg inhalat.powder (Trelegy Ellipta) ipratropium 0.5 mg-albuterol 3 mg 3 ml inhalation TID 03/12/22 03/12/22 History (2.5 mg base)/3 mL nebulization soln oxymetazoline 0.05 % nasal spray 1 spray intranasal Q12H 03/12/22 03/12/22 History (Afrin Sinus (oxymetazoline)) Exam Narrative Exam Narrative: Constitutional: Alert and oriented x3. Appears stated age. Normal body habitus. Head: Normocephalic, no trauma. Eyes: Pupils PERRL, Red reflex noted, EOM's intact. Eyelids symmetrical without lesions, discharge, or swelling. ENT: External ear normal to inspection, no swelling, or erythema, Nasal tip growth noted, appears chronic, no nasal discharge. poor dentition, Posterior pharynx WNL, no exudate. Chest: RRR, Normal S1, S2, distal pulses intact. Resp: Lungs diminished to auscultation bilaterally rhonchi in bases, scattered expiratory wheezes Abdomen: Soft, non-distended, Normoactive bowel sounds all 4 quads. healing laproscopic incisions noted to RUQ, no surrounding erythema or induration. Musculoskeletal: unable to assess gait, patient states he usually uses a wheelchair, 5/5 strength to all four extremities. Skin: No suspicious rashes or lesions. Capillary refill less than 2 sec. Neurologic: Cranial nerves II-XII intact. Alert and oriented x 3. Motor: No deficits noted. Sensory: Intact bilaterally all 4 extremities. Reflexes: DTR's intact bilaterally.. Hematologic/Lymphatic: No ecchymosis, no lymphadenopathy. Results Labs Result diagrams: 03/12/22 13:05 03/12/22 13:05 Labs: Laboratory Results - last 24 hr 03/12/22 03/12/22 03/12/22 13:05 13:05 13:05 WBC 38.01 H* RBC 4.06 L Hgb 13.5 Hct 39.5 L MCV 97 H MCH 33.3 H MCHC 34.2 RDW 12.2 Plt Count 254 MPV 10.6 Immature Gran % See Differential Neutrophils % 81.0 Lymphocytes % 5.0 Monocytes % 10.0 Eosinophils % 2.0 Basophils % 1.0 Nucleated RBC % 0.0 Absolute Neutrophils 30.79 H Absolute Lymphocytes 1.90 Absolute Monocytes 3.80 H Absolute Eosinophils 0.76 H Absolute Basophils 0.38 H RBC Morphology Normal VBG Lactate Sodium 129 L Potassium 3.8 Chloride 92 L Carbon Dioxide 28.9 Anion Gap 8.1 BUN 26 H Creatinine 0.9 Est GFR (CKD-EPI 2020) 91.31 Glucose 123 H Calcium 8.9 Magnesium 1.9 Total Bilirubin 1.1 H AST 20 ALT 28 Alkaline Phosphatase 83 Troponin I < 50 NT-Pro-B Natriuret Pep Total Protein 8.0 Albumin 3.0 L COVID-19 Source Nasopharynx SARS-CoV-2 (PCR) Negative Influenza Type A (PCR) Negative Influenza Type B (PCR) Negative RSV (PCR) Negative 03/12/22 03/12/22 03/12/22 14:12 14:12 16:05 WBC RBC Hgb Hct MCV MCH MCHC RDW Plt Count MPV Immature Gran % Neutrophils % Lymphocytes % Monocytes % Eosinophils % Basophils % Nucleated RBC % Absolute Neutrophils Absolute Lymphocytes Absolute Monocytes Absolute Eosinophils Absolute Basophils RBC Morphology VBG Lactate 1.5 H Sodium Potassium Chloride Carbon Dioxide Anion Gap BUN Creatinine Est GFR (CKD-EPI 2020) Glucose Calcium Magnesium Total Bilirubin AST ALT Alkaline Phosphatase Troponin I < 50 NT-Pro-B Natriuret Pep 3836 H Total Protein Albumin COVID-19 Source SARS-CoV-2 (PCR) Influenza Type A (PCR) Influenza Type B (PCR) RSV (PCR) Last Vital Signs Temp 36.8 C 03/12/22 16:15 Pulse 117 H 03/12/22 17:30 Resp 30 H 03/12/22 15:02 BP 92/76 L 03/12/22 17:30 Pulse Ox 93 03/12/22 17:15 Time Spent Time spent with Patient: 40-54 minutes Time was spent: preparing to see the patient(eg.review tests), obtaining and/or reviewing separately otained hiistory, ordering medications,tests, procedures, referring, communicating with other health child care cook, indepentently interpreting results, counseling the patient and care coordination
[2022-03-12 18:59] LABS: Lab Add On Test DONE
[2022-03-12] MEDS: Enoxaparin 40 MG/0.4 ML SYR SC (19:52)
[2022-03-12 19:53] LABS: Procalcitonin 1.9 ng/mL
[2022-03-12] MEDS: Magnesium Oxide 400 MG TAB 800 MG PO (19:54)
[2022-03-12] MEDS: guaiFENesin 600 MG TABCR PO (19:55)
[2022-03-12] MEDS: Sennosides/Docusate Sodium TAB 2 TAB PO (19:55)
[2022-03-12] MEDS: Sucralfate 1 GM TAB PO (19:56)
[2022-03-12] MEDS: CEFEPIME 2 GM in Normal Saline 100 ML IVPB (20:10)
[2022-03-12] MEDS: VANCOMYCIN 1,250 MG in Normal Saline 250 ML 125 MG IVPB (21:08)
[2022-03-12] MEDS: Melatonin 3 MG TAB PO (22:39)
[2022-03-12] MEDS: Fluticasone NASAL SPRAY 16 GM BTL NS (22:40)
[2022-03-13] VITALS (9 sets, daily range): BP systolic 106–124; BP diastolic 71–85; PULSE 60–81; RESP 16–21; TEMP 35.8–36.5; O2SAT 92–95
[2022-03-13] MEDS: Normal Saline Flush 10 ML SYR IVP ×3 (03:06→20:05)
[2022-03-13] MEDS: CEFEPIME 2 GM in Normal Saline 100 ML IVPB ×3 (03:07→17:49)
[2022-03-13 06:17] LABS: HCT 35.4 % (40.0-50.0); HGB 12.1 g/dL (13.5-17.5); MCHC 34.2 % (32.0-36.0); MCV 97 fL (80-95); MPV 11.1 fL (8.0-11.0); Platelet Count 218 10^3/uL (130-400); RBC 3.67 10^6/uL (4.36-5.78); RDW 12.3 % (11.8-14.1); RDW-SD 43.6 fL
[2022-03-13 06:24] LABS: WBC 28.72 10^3/uL (4.4-10.8)
[2022-03-13 06:42] LABS: Anion Gap 6.7 mmol/L (3-11); BUN 22 mg/dL (7-18); CO2 29.3 mmol/L (21.0-32.0); CREATININE 0.7 mg/dL (0.70-1.30); Calcium 8.8 mg/dL (8.5-10.1); Chloride 97 mmol/L (98-107); Estimated GFR 98.51 (mL/min/1.73m2); Glucose 138 mg/dL (74-106); Magnesium 1.9 mg/dL (1.8-2.4); Potassium 3.6 mmol/L (3.5-5.1); Sodium 133 mmol/L (136-145)
[2022-03-13] MEDS: guaiFENesin 600 MG TABCR PO ×2 (08:01→20:04)
[2022-03-13] MEDS: Sertraline 25 MG TAB PO (08:01)
[2022-03-13] MEDS: Polyethylene Glycol 3350 17 GM PACKET PO (08:01)
[2022-03-13] MEDS: Spironolactone 25 MG TAB 75 MG PO (08:01)
[2022-03-13] MEDS: Metoprolol CR 100 MG TABCR 200 MG PO (08:01)
[2022-03-13] MEDS: Lisinopril 10 MG TAB PO (08:01)
[2022-03-13] MEDS: Fluticasone NASAL SPRAY 16 GM BTL NS ×2 (08:01→20:07)
[2022-03-13] MEDS: Magnesium Oxide 400 MG TAB 800 MG PO ×2 (08:02→20:05)
[2022-03-13] MEDS: predniSONE 20 MG TAB 40 MG PO (08:02)
[2022-03-13] MEDS: Pantoprazole 40 MG TABCR PO (08:02)
[2022-03-13] MEDS: Sennosides/Docusate Sodium TAB 2 TAB PO ×2 (08:02→20:05)
[2022-03-13] MEDS: Sucralfate 1 GM TAB PO ×4 (08:02→20:04)
[2022-03-13] MEDS: VANCOMYCIN/WATER (PEG) 1.25 GM/250 ML BAG IV ×3 (09:34→23:47)
--- NOTE | 2022-03-13 12:06 | TELEP.MEDR_ITS ---
Date of service: 03/13/22 Time of Service: 12:06 Telepharmacy Home Med Rec Allergies Allergies: No Known Allergies Allergy (Verified 10/19/21 08:30) Interview Person Interviewed: * No interview, home med list updated from facility MAR Quality Quality of Interview/Accuracy of Medication List: Excellent Sources Sources used to compile medication list: [employer] Med Medication List and HECTOR (Everton Dominguez) Changes made to Home Medication List: ADDITIONS: * None DELETIONS: * Calcium plus vit D * Questran light * Diclofenac gel * Lisinopril * Nystatin powder CHANGES: * Albuterol MDI- 2 puffs TID * Tums 500mg PO q6h PRN * Magnesium Oxide 800mg PO daily * Senna-Docusate 2 tabs PO daily * Miralax 17gm PO daily PRN * Tramadol 50mg PO BID Additional Notes Additional Notes: * none Recommended Changes Recommended Changes(reason for recommendation): * none Attestation: The home medication list is now updated to the best of my knowledge and is ready to be reconciled by the provider. Please [facility] the [facility] Pharmacist at for any questions.
--- NOTE | 2022-03-13 12:06 | TELEP.MEDREC ---
Date of service: 03/13/22 Time of Service: 12:06 Telepharmacy Home Med Rec Allergies Allergies: No Known Allergies Allergy (Verified 10/19/21 08:30) Interview Person Interviewed: No interview, home med list updated from facility MAR Quality Quality of Interview/Accuracy of Medication List: Excellent Sources Sources used to compile medication list: [employer] Medication List and HECTOR (Everton Dominguez) Changes made to Home Medication List: ADDITIONS: None DELETIONS: Calcium plus vit D Questran light Diclofenac gel Lisinopril Nystatin powder CHANGES: Albuterol MDI- 2 puffs TID Tums 500mg PO q6h PRN Magnesium Oxide 800mg PO daily Senna-Docusate 2 tabs PO daily Miralax 17gm PO daily PRN Tramadol 50mg PO BID Additional Notes Additional Notes: none Recommended Changes Recommended Changes(reason for recommendation): none Attestation: The home medication list is now updated to the best of my knowledge and is ready to be reconciled by the provider. Please contact the TelePharmacy Medication Reconciliation Pharmacist at for any questions.
--- NOTE | 2022-03-13 13:03 | INITIAL_ITS ---
- If Service Date Differs Date of service: 03/13/22 Time of Service: 13:03 Care Management Initial Assess REASON FOR HOSPITALIZATION:: Left lower lobe pneumonia PAST MEDICAL HISTORY/PAST SURGICAL HISTORY:: All Active Problems (Updated 03/12/22 @ 20:50 by Miladys Prado NP). Fluid overload (Acute). Hypertension (Chronic). Discharge planning issues (Acute). DVT prophylaxis (Acute). Left lower lobe pneumonia (Acute). Abdominal pain (Acute). Bloating (Acute). Heme positive stool (Acute). Infected sebaceous cyst of skin (Acute). Trapped lung (Acute). Sacroiliitis (Acute). COPD (chronic obstructive pulmonary disease) (Chronic). Depression (Chronic). Lymphedema (Acute). HTN (hypertension) with goal to be determined (Chronic). Obesity (Chronic). DNR (do not resuscitate) (Acute). Presence of cardiac pacemaker (Chronic). [employer] PPM MRI model L111 Serial # [id number] placed dual chamber 04/30/2017 for CHB at [facility]. Complications included pericardial effusion with tamponade and need for reposition R atrial lead 05/16/20. Coronary artery disease (Chronic). Rhinophyma (Acute). Vitamin D deficiency (Acute). Medical History . CHB (complete heart block). had permanent pacemaker implanted 2017 for this. 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 Most likely this is inflammatory tissue and not actually fluid. pt has had multiple taps. He was on a prolonged course of IV abx and has failed to resolve. This is a sequelae of this pericardial tamponade following disruption of his RA lead from pacemaker insertion. Hyponatremia, hypo- osmolarity, or hypo-osmolar hyponatremia. Recurrent left pleural effusion. Surgical History . History of permanent cardiac pacemaker placement. with subsequent repositioning. S/P laparoscopic cholecystectomy PREVIOUS FUNCTIONAL STATUS/SOCIAL/FAMILY SUPPORTS:: Tim has been a resident at the [facility] for the last 2 years. Per Tim, he enjoys it at the [facility] and is planning on living the rest of his life there. 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 Tim's daughter/main support person is Adriana and she lives in [facility]. CURRENT FUNCTIONAL STATUS:: Tim is lying in bed when CM met with him. He is awake, alert, pleasant and easily engages in conversation. Tim jokingly shares that the one thing he's missed most during this admission is beer. Per pt, he is able to have 1-2 beers a day at the [facility]. ADVANCE DIRECTIVES:: [employer] on File Has patient been provided with info about the portal/API?: Yes Did the patient sign up for the portal?: No CODE STATUS:: DNR/DNI INSURANCE COVERAGE / FINANCIAL ISSUES:: Medicaid. Medicare CURRENT HOME/COMMUNITY SERVICES/EQUIPMENT:: Has a walker and wheelchair. [facility] PRIMARY CARE PHYSICIAN:: Radha Chand [facility] Provider. POTENTIAL DISCHARGE NEEDS:: Discharge plan of care, follow up appointments PATIENT/FAMILY EDUCATION NEEDS:: Review discharge instructions, discuss Ask Me Three. TRANSPORTATION:: Via RCT PLAN:: Tim will discharge back to the [facility] via RCT, when medically ready per provider. He will follow discharge plan of care as prescribed and follow up with community providers. CM will continue to follow and support discharge planning conciderations.
--- NOTE | 2022-03-13 15:56 | PGE_ITS ---
Date of Service Date of service: 03/13/22 Time of Service: 15:56 Assessment and Plan Assessment and plan (1) Left lower lobe pneumonia: Status: Acute Assessment and plan: WBC improving Azithromycin, cefepime, Vancomycin day 2 while BC and MRSA pending (ceftriaxone given in the ED) Prednisone Furosemide given in ED - monitor lung sounds, he takes spironolactone 75 mg daily Albuterol and Duoneb PRN Guaifenesin for cough, will add tessalon perles (2) Fluid overload: Status: Acute Assessment and plan: Sodium improving Continue spironolactone (3) Abdominal pain: Status: Resolved Assessment and plan: He denies pain, abd soft, non tender, BS present- will monitor Consider surgical consult if dev abd pain (4) COPD (chronic obstructive pulmonary disease): Status: Chronic Assessment and plan: As above (5) Hypertension: Status: Chronic Assessment and plan: Continue Lisinopril; monitor BP; monitor renal fxn (6) Depression: Status: Chronic Assessment and plan: Continue Sertraline (7) Obesity: Status: Chronic Assessment and plan: Heart Healthy diet DASH diet (8) Coronary artery disease: Status: Chronic Assessment and plan: continue Metoprolol - telemetry; monitor HR/BP (9) DVT prophylaxis: Status: Acute Assessment and plan: Enoxaparin 40 mg daily (10) Discharge planning issues: Status: Acute Assessment and plan: Home when medically stable. Discussed with Dr Cantu Subjective Subjective Patient reports: no new complaints, tolerating liquids well, tolerating a regular diet, shortness of breath (cough) and afebrile Exam Const General: comfortable, no acute distress and other (older than stated age) Nutritional Appearance: overweight Orientation: alert, awake and oriented x3 [facility] Face and sinus: other (rhinophyma) Chest Chest: normal inspection of the chest Resp Effort & Inspection: normal respiratory effort Auscultation: diminished lung sounds and no wheezes Cardio Rate: regular rate Rhythm: regular rhythm GI Inspection: normal to inspection Palpation: soft Skin General skin exam: no rashes or lesions noted Neuro General: patient alert, patient awake, patient oriented x3 and no focal motor deficits Objective Last Vital Signs Temp 36.5 C 03/13/22 11:13 Pulse 81 03/13/22 11:13 Resp 16 03/13/22 11:13 BP 106/71 03/13/22 11:13 Pulse Ox 94 03/13/22 11:13 Laboratory Results - last 24 hr 03/12/22 03/12/22 03/12/22 13:05 13:05 16:05 WBC RBC Hgb Hct MCV MCH MCHC RDW Plt Count MPV Sodium Potassium Chloride Carbon Dioxide Anion Gap BUN Creatinine Est GFR (CKD-EPI 2020) Glucose Calcium Magnesium Troponin I < 50 Procalcitonin 1.9 Add-On Test Request DONE 03/13/22 03/13/22 05:29 05:29 WBC 28.72 H* RBC 3.67 L Hgb 12.1 L Hct 35.4 L MCV 97 H MCH 33.0 MCHC 34.2 RDW 12.3 Plt Count 218 MPV 11.1 H Sodium 133 L Potassium 3.6 Chloride 97 L Carbon Dioxide 29.3 Anion Gap 6.7 BUN 22 H Creatinine 0.7 Est GFR (CKD-EPI 2020) 98.51 Glucose 138 H Calcium 8.8 Magnesium 1.9 Troponin I Procalcitonin Add-On Test Request Time Spent with Patient Time Spent with Patient: 35-49 minutes Time was spent: preparing to see the patient(eg.review tests), obtaining and/or reviewing separately otained hiistory, ordering medications,tests, procedures and indepentently interpreting results
[2022-03-13] MEDS: Benzonatate 100 MG CAP PO ×2 (16:11→20:04)
[2022-03-13] MEDS: Enoxaparin 40 MG/0.4 ML SYR SC (20:05)
[2022-03-13] MEDS: Budesonide/Formoterol 160/4.5 6 GM 60 PUFF INH IH (20:07)
[2022-03-13 21:43] LABS: Legionella Ag Detection Urine Negative (Negative)
[2022-03-13] MEDS: Melatonin 3 MG TAB PO (22:46)
[2022-03-14] VITALS (11 sets, daily range): BP systolic 124–157; BP diastolic 77–94; PULSE 58–68; RESP 15–18; TEMP 36.3–36.8; O2SAT 92–96
[2022-03-14] MEDS: CEFEPIME 2 GM in Normal Saline 100 ML IVPB ×3 (02:17→18:16)
[2022-03-14] MEDS: Budesonide/Formoterol 160/4.5 6 GM 60 PUFF INH IH ×2 (07:30→19:39)
[2022-03-14] MEDS: Tiotropium Bromide-Respimat 10 PUFF INH 2 PUFF IH (07:30)
[2022-03-14 09:35] LABS: Vancomycin, Trough 25.2 ug/mL (10.0-20.0)
[2022-03-14 09:38] LABS: Anion Gap 5.3 mmol/L (3-11); BUN 23 mg/dL (7-18); CO2 28.7 mmol/L (21.0-32.0); CREATININE 0.6 mg/dL (0.70-1.30); Calcium 8.6 mg/dL (8.5-10.1); Chloride 98 mmol/L (98-107); Glucose 108 mg/dL (74-106); Potassium 3.6 mmol/L (3.5-5.1); Sodium 132 mmol/L (136-145)
[2022-03-14] MEDS: Polyethylene Glycol 3350 17 GM PACKET PO (09:57)
[2022-03-14] MEDS: Fluticasone NASAL SPRAY 16 GM BTL NS ×2 (09:57→20:21)
[2022-03-14] MEDS: Spironolactone 25 MG TAB 75 MG PO (09:58)
[2022-03-14] MEDS: Magnesium Oxide 400 MG TAB 800 MG PO ×2 (09:58→20:23)
[2022-03-14] MEDS: guaiFENesin 600 MG TABCR PO ×2 (09:59→20:23)
[2022-03-14] MEDS: Sertraline 25 MG TAB PO (09:59)
[2022-03-14] MEDS: Sennosides/Docusate Sodium TAB 2 TAB PO ×2 (09:59→20:23)
[2022-03-14] MEDS: Metoprolol CR 100 MG TABCR 200 MG PO (09:59)
[2022-03-14] MEDS: Lisinopril 10 MG TAB PO (09:59)
[2022-03-14] MEDS: predniSONE 20 MG TAB 40 MG PO (09:59)
[2022-03-14] MEDS: Benzonatate 100 MG CAP PO ×3 (10:00→20:23)
[2022-03-14] MEDS: Sucralfate 1 GM TAB PO ×4 (10:00→20:23)
[2022-03-14] MEDS: Pantoprazole 40 MG TABCR PO (10:00)
[2022-03-14 10:42] LABS: Absolute Basophil Count 0.04 10^3/uL (0.0-0.2); Basophils % 0.2; HCT 32.5 % (40.0-50.0); HGB 10.9 g/dL (13.5-17.5); Immature Grans % 0.9; Lymphocytes % 7.2; MCH 33.3 pg (27.0-33.0); MCHC 33.5 % (32.0-36.0); MCV 99 fL (80-95); MPV 11.2 fL (8.0-11.0); Monocytes % 6.2; Neutrophils % 85.5; Platelet Count 214 10^3/uL (130-400); RBC 3.27 10^6/uL (4.36-5.78); RDW 12.3 % (11.8-14.1); RDW-SD 44.8 fL; WBC 21.87 10^3/uL (4.4-10.8)
[2022-03-14 10:43] LABS: Absolute Lymphocyte Count 1.58 10^3/uL (1.2-3.4); Absolute Monocyte Count 1.35 10^3/uL (0.1-0.8)
[2022-03-14] MEDS: VANCOMYCIN/WATER (PEG) 1.25 GM/250 ML BAG IV (10:51)
--- NOTE | 2022-03-14 13:40 | CMPROGNOTE_ITS ---
- If Service Date Differs Date of service: 03/14/22 Time of Service: 13:40 Care Management Progress Note S/O: Tim was lying in bed when CM met with him. He is awake, alert and able to engage in conversation. He continues to be closely monitored and treated with IV ABX. He is planning on returning to the [facility] when he is medically ready. A: 71 year old male admitted to [facility] on 03/12/22 for pneumonia P: Tim will discharge back to the [facility] via RCT, when medically ready per provider. He will follow discharge plan of care as prescribed and follow up with community providers. CM will continue to follow and support discharge planning conciderations.
--- NOTE | 2022-03-14 14:41 | W.PM.PROGNOT ---
Date of Service Date of service: 03/14/22 Time of Service: 14:41 Assessment and Plan Assessment and plan (1) Left lower lobe pneumonia: Status: Acute Assessment and plan: WBC continues to improve on Azithromycin, cefepime, Vancomycin day 3 blood cultures no growth to date, sputum with normal jesi, legionella negative MRSA negative, will stop vanco continue Prednisone burst Furosemide given in ED - monitor lung sounds, he takes spironolactone 75 mg daily Albuterol and Duoneb PRN Guaifenesin for cough, will add tessalon perles (2) Fluid overload: Status: Resolved Assessment and plan: Sodium improving Continue spironolactone (3) COPD (chronic obstructive pulmonary disease): Status: Chronic Assessment and plan: As above (4) Hypertension: Status: Chronic Assessment and plan: Continue Lisinopril; monitor BP; monitor renal fxn (5) Depression: Status: Chronic Assessment and plan: Continue Sertraline (6) Obesity: Status: Chronic Assessment and plan: Heart Healthy diet DASH diet (7) Coronary artery disease: Status: Chronic Assessment and plan: continue Metoprolol - telemetry; monitor HR/BP (8) DVT prophylaxis: Status: Acute Assessment and plan: Enoxaparin 40 mg daily (9) Discharge planning issues: Status: Acute Assessment and plan: Home when medically stable. Discussed with Dr Cantu Subjective Subjective Patient reports: no new complaints, tolerating liquids well, tolerating a regular diet and afebrile Exam Const General: comfortable, no acute distress and other (older than stated age) Nutritional Appearance: overweight Orientation: alert, awake and oriented x3 HENMT Face and sinus: other (rhinophyma) Chest Chest: normal inspection of the chest Resp Effort & Inspection: normal respiratory effort Auscultation: diminished lung sounds and no wheezes Cardio Rate: regular rate Rhythm: regular rhythm GI Inspection: normal to inspection Palpation: soft Skin General skin exam: no rashes or lesions noted Neuro General: patient alert, patient awake, patient oriented x3 and no focal motor deficits Objective Last Vital Signs Temp 36.3 C L 03/14/22 11:59 Pulse 68 03/14/22 11:59 Resp 18 03/14/22 11:59 BP 145/87 H 03/14/22 11:59 Pulse Ox 93 03/14/22 11:59 Laboratory Results - last 24 hr 03/12/22 03/14/22 03/14/22 19:15 05:45 05:45 WBC 21.87 H RBC 3.27 L Hgb 10.9 L Hct 32.5 L MCV 99 H MCH 33.3 H MCHC 33.5 RDW 12.3 Plt Count 214 MPV 11.2 H Immature Gran % 0.9 Neutrophils % 85.5 Lymphocytes % 7.2 Monocytes % 6.2 Eosinophils % 0.0 Basophils % 0.2 Nucleated RBC % 0.0 Absolute Neutrophils 18.70 H Absolute Lymphocytes 1.58 Absolute Monocytes 1.35 H Absolute Eosinophils 0.00 Absolute Basophils 0.04 Sodium Potassium Chloride Carbon Dioxide Anion Gap BUN Creatinine Est GFR (CKD-EPI 2020) Glucose Calcium Vancomycin Trough 25.2 H* Urine Legionella Ag Negative 03/14/22 06:10 WBC RBC Hgb Hct MCV MCH MCHC RDW Plt Count MPV Immature Gran % Neutrophils % Lymphocytes % Monocytes % Eosinophils % Basophils % Nucleated RBC % Absolute Neutrophils Absolute Lymphocytes Absolute Monocytes Absolute Eosinophils Absolute Basophils Sodium 132 L Potassium 3.6 Chloride 98 Carbon Dioxide 28.7 Anion Gap 5.3 BUN 23 H Creatinine 0.6 L Est GFR (CKD-EPI 2020) 103.20 Glucose 108 H Calcium 8.6 Vancomycin Trough Urine Legionella Ag Time Spent with Patient Time Spent with Patient: 35-49 minutes Time was spent: preparing to see the patient(eg.review tests), obtaining and/or reviewing separately otained hiistory, ordering medications,tests, procedures and indepentently interpreting results
[2022-03-14 15:42] LABS: Streptococcus Pneumoniae Ag, U Negative (Negative)
[2022-03-14] MEDS: Normal Saline Flush 10 ML SYR IVP ×2 (18:17→20:23)
[2022-03-14] MEDS: Enoxaparin 40 MG/0.4 ML SYR SC (20:21)
[2022-03-14] MEDS: Melatonin 3 MG TAB PO (22:24)
[2022-03-15] MEDS: traMADol 50 MG TAB PO (01:22)
[2022-03-15] MEDS: CEFEPIME 2 GM in Normal Saline 100 ML IVPB ×3 (01:23→17:33)
[2022-03-15 03:49] VITALS: BP 159/91; PULSE 64; RESP 18; TEMP 36.6; O2SAT 94
[2022-03-15 06:34] LABS: Abs Immature Grans 0.16 10^3/uL (0.0-0.06); Absolute Basophil Count 0.03 10^3/uL (0.0-0.2); Absolute Lymphocyte Count 2.44 10^3/uL (1.2-3.4); Absolute Monocyte Count 1.28 10^3/uL (0.1-0.8); Absolute Neutrophil Count 10.52 10^3/uL (1.2-6.7); Basophils % 0.2; HGB 10.8 g/dL (13.5-17.5); Immature Grans % 1.1; Lymphocytes % 16.9; MCHC 33.8 % (32.0-36.0); MCV 98 fL (80-95); MPV 10.9 fL (8.0-11.0); Monocytes % 8.9; Neutrophils % 72.9; Platelet Count 219 10^3/uL (130-400); RBC 3.27 10^6/uL (4.36-5.78); WBC 14.43 10^3/uL (4.4-10.8)
[2022-03-15 06:45] LABS: Anion Gap 3.1 mmol/L (3-11); BUN 16 mg/dL (7-18); CO2 28.9 mmol/L (21.0-32.0); CREATININE 0.6 mg/dL (0.70-1.30); Calcium 8.2 mg/dL (8.5-10.1); Chloride 100 mmol/L (98-107); Glucose 93 mg/dL (74-106); Potassium 3.3 mmol/L (3.5-5.1); Sodium 132 mmol/L (136-145)
[2022-03-15 07:51] VITALS: BP 162/90; PULSE 62; RESP 20; TEMP 36.8; O2SAT 92
[2022-03-15] MEDS: Tiotropium Bromide-Respimat 10 PUFF INH 2 PUFF IH (07:57)
[2022-03-15] MEDS: Budesonide/Formoterol 160/4.5 6 GM 60 PUFF INH IH ×2 (07:58→19:53)
[2022-03-15 08:01] LABS: Lab Add On Test DONE
[2022-03-15] MEDS: Sennosides/Docusate Sodium TAB 2 TAB PO ×2 (08:50→20:13)
[2022-03-15] MEDS: Sucralfate 1 GM TAB PO ×4 (08:57→20:19)
[2022-03-15] MEDS: Lisinopril 10 MG TAB PO (08:57)
[2022-03-15] MEDS: Pantoprazole 40 MG TABCR PO (08:57)
[2022-03-15] MEDS: Magnesium Oxide 400 MG TAB 800 MG PO ×2 (08:57→20:13)
[2022-03-15] MEDS: Sertraline 25 MG TAB PO (08:57)
[2022-03-15] MEDS: guaiFENesin 600 MG TABCR PO ×2 (08:57→20:19)
[2022-03-15] MEDS: Benzonatate 100 MG CAP PO ×3 (08:57→20:16)
[2022-03-15] MEDS: Metoprolol CR 100 MG TABCR 200 MG PO (08:58)
[2022-03-15] MEDS: predniSONE 20 MG TAB 40 MG PO (08:58)
[2022-03-15] MEDS: Polyethylene Glycol 3350 17 GM PACKET PO (08:58)
[2022-03-15] MEDS: Spironolactone 25 MG TAB 75 MG PO (08:58)
[2022-03-15] MEDS: Fluticasone NASAL SPRAY 16 GM BTL NS (09:05)
[2022-03-15] MEDS: POTASSIUM CHLORIDE 20 MEQ/100 ML BAG 50 MEQ IVPB ×2 (09:28→12:11)
--- NOTE | 2022-03-15 09:43 | PDOC.CMPRO ---
- If Service Date Differs Date of service: 03/15/22 Time of Service: 09:43 Care Management Progress Note S/O: Tim was lying in bed watching TV when CM met with him. He is awake, alert and able to engage in conversation. He is agreeable to remain on IV ABX through the weekend then return to the [facility] on Friday. Covid test is ordered, prior to discharge. A: 71 year old male admitted to [facility] on 03/12/22 for pneumonia P: Tim will discharge back to the [facility] via [facility], when medically ready per provider. He will follow discharge plan of care as prescribed and follow up with community providers. CM will continue to follow and support discharge planning considerations.
[2022-03-15] MEDS: Normal Saline Flush 10 ML SYR IVP (10:29)
[2022-03-15 11:16] VITALS: BP 148/84; PULSE 59; RESP 16; TEMP 36.9; O2SAT 92
--- NOTE | 2022-03-15 13:58 | IN_ITS ---
PT Notes Visit Reasons: Pneumonia Inpatient Physical Therapy Evaluation Date: 03/15/22 Referring Doctor: Liliya Spicer NP PT Orders: PT CONSULT: limited ability to ambulate Precautions: standard Patient Profile/Admitting Diagnosis: Patient admitted for medical management of pneumonia. He is a resident of [facility], where he has lived for years. PMHX: All Active Problems?(Updated 03/12/22 @ 20:50 by Miladys Prado NP) Fluid overload (Acute) Hypertension (Chronic) Discharge planning issues (Acute) DVT prophylaxis (Acute) Left lower lobe pneumonia (Acute) Abdominal pain (Acute) Bloating (Acute) Heme positive stool (Acute) Infected sebaceous cyst of skin (Acute) Trapped lung (Acute) Sacroiliitis (Acute) COPD (chronic obstructive pulmonary disease) (Chronic) Depression (Chronic) Lymphedema (Acute) HTN (hypertension) with goal to be determined (Chronic) Obesity (Chronic) DNR (do not resuscitate) (Acute) Presence of cardiac pacemaker (Chronic) [employer] PPM MRI model L111 Serial # [id number] placed dual ch best 04/30/2017 for CHB at [facility]. Complications included pericardial effusion with tamponade? and need for? reposition R atrial lead 05/16/20Coronary artery disease (Chronic) Rhinophyma (Acute) Vitamin D deficiency (Acute) Medical History? CHB (complete heart block) had permanent pacemaker implanted 2018 for thisHistory of empyema of pleura this is chronic.? Most likely this is inflammatory tissue and not actually fluid. pt has had multiple taps.? He was on a prolonged course of IV abx and has failed to resolve.? This is a sequelae of this pericardial tamponade following disruption of his RA lead from pacemaker insertion. Hyponatremia, hypo-osmolarity, or hypo-osmolar hyponatremia Recurrent left pleural effusion Social History/Home Situation: Resident of [facility]. Plans to return there on Friday if possible. States that he normally walks short distances in his room, to and from wheelchair. He states that he had participated in PT previously, but had to stop due to frequency of falls. States that he has used a FWW in the past, but feels that contributed to his falls, and now he exclusively uses a cane. Equipment Owned/DME: wheelchair, cane Subjective: Tim states that he is moving around as normal. States that he's been walking around his room on his own. He reports that he does this at the [facility], as well, despite staff requesting that he not walk on his own. Objective: General Observation: Resting in bed, IV in LUE. Mental Status: A&Ox3. Intermittently agitated throughout session, requiring frequent redirecting. Pain: chronic left knee pain ROM: Right Upper Extremity: Shoulder flexion 90*. ER WNL. Elbow motion full. Left Upper Extremity: Shoulder flexion 100*. ER WNL. Elbow motion full. Right Lower Extremity: WFL Left Lower Extremity: Left knee allows 0-80* flexion. Strength: Right Upper Extremity: Shoulder motion grossly 3-/5. Triceps 3+/5. Left Upper Extremity: Shoulder motion grossly 3-/5. Triceps 3+/5. Bliat Lower Extremity: unable to assess via MMT due to agitation level, but able to demonstrate SLR, heel slide and ankle pumps for 3/5 functional movement. Bed Mobility/Transfers: supine-sit: supervision sit-stand: supervision stand-sit: supervision, although with limited safety awareness with regards to IV Gait: ambulates 10'x2 with cane in RUE. Decreased safety awareness, with patient disregarding cues to allow for safe management of IV lines, and poorly navigating obstacles during ambulation. Discussed need to call for assistance before ambulating during his stay, particularly while IV line is in place. Balance: Static Sitting: good Dynamic Sitting: good Static Standing: fair Dynamic Standing: poor Special Tests: Mobility Limitations Standardized Measure [facility]-PAC 6 clicks Basic Mobility Inpatient Short Form: Raw Score: 20 CMS Score: 36% impairment Informed Consent/Education: Patient instructed in purpose of PT consult and plan of care. Assessment: Patient is a 71 year old male referred to physical therapy services with the diagnosis of limited ability to ambulate. Patient presents with baseline level of mobility, with significant limitations in safety awareness. Patient has a history of multiple falls, and is at high risk for additional falls. He requires skilled PT intervention for open and closed chain strengthening to allow for early cardiovascular retraining and UE/LE strengthen ing to maintain function and mobility during acute care hospitalization. He is at high risk for loss of mobility given his baseline limitations and multiple co-morbidities. He currently demonstrates the following impairment level findings: 1. decreased left knee ROM 2. left knee instability 3. h/o multiple falls 4. decreased safety awareness Impairments are contributing to the following functional limitations: 1. high risk for falls 2. high risk for loss of functional mobility during hospitalization for acute medical issues Patient is assessed as Low [id number] based on the following: History: Patient is a 71 year old male presenting with mobility impairments related to acute on chronic medical issues. Complicating factors include limited safety awareness. Examination: functional limitations as noted above Presentation: evolving Decision Making: low Goals: Goals X1 week 1. Supine-Sit : supervision 2. Sit-Supine : supervision 3. Sit-Stand : supervision 4. Stand-Sit : supervision 5. Bed-Chair : supervision with cane 6. Chair-Bed : supervision with cane 7. Gait : 10' with cane and supervision, with demonstration of good safety awareness Plan of Care/Treatment Plan: 1-2x/day, 7 days/week x 1 week. Plan of care has been reviewed with the CAD PROGRAMMER providing the service under Physical Therapy direction. Initiate Physical Therapy intervention for strengthening, bed mobility, transfers, balance training, use of assistive device. DISCHARGE RECOMMENDATIONS: Return to [facility] TREATMENT CODE/TIME: 25 minutes (1:45-2:10) [id number] Lora Mae, PT, DPT [facility]
--- NOTE | 2022-03-15 14:10 | PGE_ITS ---
Date of Service Date of service: 03/15/22 Time of Service: 14:10 Assessment and Plan Assessment and plan (1) Left lower lobe pneumonia: Status: Acute Assessment and plan: WBC continues to improve continue cefepime day 4 blood cultures no growth to date, sputum with normal jesi, legionella negative MRSA negative continue Prednisone burst Albuterol and Duoneb PRN Guaifenesin and tessalon perles for cough (2) COPD (chronic obstructive pulmonary disease): Status: Chronic Assessment and plan: As above (3) Hypertension: Status: Chronic Assessment and plan: Continue Lisinopril; monitor BP; monitor renal fxn (4) Depression: Status: Chronic Assessment and plan: Continue Sertraline (5) Obesity: Status: Chronic Assessment and plan: Heart Healthy diet DASH diet (6) Coronary artery disease: Status: Chronic Assessment and plan: continue Metoprolol - telemetry; monitor HR/BP (7) DVT prophylaxis: Status: Acute Assessment and plan: Enoxaparin 40 mg daily (8) Discharge planning issues: Status: Acute Assessment and plan: Home when medically stable. likely Friday after completion of IV antibiotics. Discussed with Dr Cantu Subjective Subjective Patient reports: no new complaints, feels better, tolerating liquids well, tolerating a regular diet, shortness of breath (still with productive cough) and afebrile Exam Const General: comfortable, no acute distress and other (older than stated age) Nutritional Appearance: overweight Orientation: alert, awake and oriented x3 HENMT Face and sinus: other (rhinophyma) Chest Chest: normal inspection of the chest Resp Effort & Inspection: normal respiratory effort Auscultation: diminished lung sounds and no wheezes Cardio Rate: regular rate Rhythm: regular rhythm GI Inspection: normal to inspection Palpation: soft Skin General skin exam: no rashes or lesions noted Neuro General: patient alert, patient awake, patient oriented x3 and no focal motor deficits Objective Last Vital Signs Temp 36.9 C 03/15/22 11:16 Pulse 59 L 03/15/22 11:16 Resp 16 03/15/22 11:16 BP 148/84 H 03/15/22 11:16 Pulse Ox 92 03/15/22 11:16 Laboratory Results - last 24 hr 03/13/22 03/15/22 03/15/22 02:26 05:47 05:47 WBC 14.43 H RBC 3.27 L Hgb 10.8 L Hct 32.0 L MCV 98 H MCH 33.0 MCHC 33.8 RDW 12.0 Plt Count 219 MPV 10.9 Immature Gran % 1.1 Neutrophils % 72.9 Lymphocytes % 16.9 Monocytes % 8.9 Eosinophils % 0.0 Basophils % 0.2 Nucleated RBC % 0.0 Absolute Neutrophils 10.52 H Absolute Lymphocytes 2.44 Absolute Monocytes 1.28 H Absolute Eosinophils 0.00 Absolute Basophils 0.03 Sodium 132 L Potassium 3.3 L Chloride 100 Carbon Dioxide 28.9 Anion Gap 3.1 BUN 16 Creatinine 0.6 L Est GFR (CKD-EPI 2020) 103.20 Glucose 93 Calcium 8.2 L Magnesium Ur Strep pneumoniae Ag Negative Add-On Test Request 03/15/22 03/15/22 05:47 05:47 WBC RBC Hgb Hct MCV MCH MCHC RDW Plt Count MPV Immature Gran % Neutrophils % Lymphocytes % Monocytes % Eosinophils % Basophils % Nucleated RBC % Absolute Neutrophils Absolute Lymphocytes Absolute Monocytes Absolute Eosinophils Absolute Basophils Sodium Potassium Chloride Carbon Dioxide Anion Gap BUN Creatinine Est GFR (CKD-EPI 2020) Glucose Calcium Magnesium 2.0 Ur Strep pneumoniae Ag Add-On Test Request DONE Time Spent with Patient Time Spent with Patient: 25-34 minutes Time was spent: preparing to see the patient(eg.review tests), obtaining and/or reviewing separately otained hiistory, referring, communicating with other health resident care supervisor, indepentently interpreting results and counseling the patient
[2022-03-15 15:54] VITALS: BP 178/90; PULSE 61; RESP 20; TEMP 36.8; O2SAT 94
[2022-03-15] MEDS: Enoxaparin 40 MG/0.4 ML SYR SC (20:18)
[2022-03-15 20:35] VITALS: BP 166/103; PULSE 61; RESP 20; TEMP 37; O2SAT 94
[2022-03-15] MEDS: Melatonin 3 MG TAB PO (22:14)
[2022-03-15 23:15] VITALS: BP 182/98; PULSE 85; RESP 18; TEMP 36.8; O2SAT 95
[2022-03-16 03:40] VITALS: BP 174/102; PULSE 62; RESP 18; TEMP 36.4; O2SAT 93
[2022-03-16] MEDS: CEFEPIME 2 GM in Normal Saline 100 ML IVPB ×3 (05:00→17:02)
[2022-03-16 07:43] VITALS: BP 166/96; PULSE 60; RESP 17; TEMP 36.4; O2SAT 95
[2022-03-16] MEDS: Budesonide/Formoterol 160/4.5 6 GM 60 PUFF INH IH ×2 (07:53→19:32)
[2022-03-16] MEDS: Tiotropium Bromide-Respimat 10 PUFF INH 2 PUFF IH (07:55)
[2022-03-16] MEDS: Fluticasone NASAL SPRAY 16 GM BTL NS ×2 (08:05→20:06)
[2022-03-16] MEDS: Polyethylene Glycol 3350 17 GM PACKET PO (08:05)
[2022-03-16] MEDS: Spironolactone 25 MG TAB 75 MG PO (08:05)
[2022-03-16] MEDS: Normal Saline Flush 10 ML SYR IVP (08:05)
[2022-03-16] MEDS: guaiFENesin 600 MG TABCR PO ×2 (08:06→20:03)
[2022-03-16] MEDS: Metoprolol CR 100 MG TABCR 200 MG PO (08:06)
[2022-03-16] MEDS: Sertraline 25 MG TAB PO (08:06)
[2022-03-16] MEDS: Magnesium Oxide 400 MG TAB 800 MG PO ×2 (08:06→20:03)
[2022-03-16] MEDS: Pantoprazole 40 MG TABCR PO (08:06)
[2022-03-16] MEDS: Benzonatate 100 MG CAP PO ×3 (08:06→20:03)
[2022-03-16] MEDS: Sucralfate 1 GM TAB PO ×4 (08:06→20:03)
[2022-03-16] MEDS: predniSONE 20 MG TAB 40 MG PO (08:06)
[2022-03-16] MEDS: Sennosides/Docusate Sodium TAB 2 TAB PO ×2 (08:06→20:04)
[2022-03-16] MEDS: Lisinopril 10 MG TAB PO (08:07)
--- NOTE | 2022-03-16 11:10 | PT.INTREAT ---
PT Notes Visit Reasons: Pneumonia Date: 03/16/2022 PRECAUTIONS: Fall, Standard, Activity as tolerated SUBJECTIVE: Pt in bed when approached for therapy this morning, pt reports 6/10 for left knee pain, pt agreed to bed level activity. OBJECTIVE: ? PAIN: Patient c/o L knee pain with gait training ? BED MOBILITY/TRANSFERS? Supine-sit: supervision Sit-supine: supervision Sit-stand: supervision ? Stand-sit: supervision ? GAIT? Assistive Device: SPC? Weight bearing: Full Assist: Supervision ? Distance:? 10'x2 to go to the toilet? Deviation: SOB, L knee discomfort, slow pace ? Toileting: Supervision?for transfers? THEREX: Supine Therapeutic exercise RLE SLR, Knee to chest, hip ab/ad, ankle pumps, circles [id number] each, LLE hip ab/add, partial SLR, ankle pumps circles [id number] each. ASSESSMENT: Pt initially refused standing activity but had to go to the toilet, pt refusewd further engagement after bed level exercises. PLAN: Continue with general conditioning for improved mobility and activity tolerance. TREATMENT CODE/TIME: 15 minutes; 25649 (10:20-10:35am)
[2022-03-16 11:21] VITALS: BP 155/92; PULSE 60; RESP 17; TEMP 36.4; O2SAT 95
[2022-03-16 15:45] VITALS: BP 153/93; PULSE 60; RESP 18; TEMP 36.8; O2SAT 96
--- NOTE | 2022-03-16 16:38 | W.PM.PROGNOT ---
Date of Service Date of service: 03/16/22 Time of Service: 16:38 Assessment and Plan Assessment and plan (1) Left lower lobe pneumonia: Status: Acute Assessment and plan: WBC continues to improve continue cefepime day 5 blood cultures no growth to date, sputum with normal jesi, legionella negative MRSA negative continue Prednisone burst Albuterol and Duoneb PRN Guaifenesin and tessalon perles for cough (2) COPD (chronic obstructive pulmonary disease): Status: Chronic Assessment and plan: As above (3) Hypertension: Status: Chronic Assessment and plan: Continue Lisinopril, metoprolol; monitor BP. has been elevated during this hospitalization but shows a history of low reading. (4) Depression: Status: Chronic Assessment and plan: Continue Sertraline (5) Obesity: Status: Chronic Assessment and plan: Heart Healthy diet DASH diet (6) Coronary artery disease: Status: Chronic Assessment and plan: continue Metoprolol - telemetry; monitor HR/BP (7) DVT prophylaxis: Status: Acute Assessment and plan: Enoxaparin 40 mg daily (8) Discharge planning issues: Status: Acute Assessment and plan: Home when medically stable. likely Friday after completion of IV antibiotics. Discussed with Dr Mccoy Subjective Subjective Patient reports: no new complaints, feels better, tolerating liquids well, tolerating a regular diet, voiding w/o difficulty, shortness of breath (still with productive cough) and afebrile Exam Const General: comfortable, no acute distress and other (older than stated age) Nutritional Appearance: overweight Orientation: alert, awake and oriented x3 HENMT Face and sinus: other (rhinophyma) Chest Chest: normal inspection of the chest Resp Effort & Inspection: normal respiratory effort Auscultation: diminished lung sounds and no wheezes Cardio Rate: regular rate Rhythm: regular rhythm GI Inspection: normal to inspection Palpation: soft Skin General skin exam: no rashes or lesions noted Neuro General: patient alert, patient awake, patient oriented x3 and no focal motor deficits Objective Last Vital Signs Temp 36.8 C 03/16/22 15:45 Pulse 60 03/16/22 15:45 Resp 18 03/16/22 15:45 BP 153/93 H 03/16/22 15:45 Pulse Ox 96 03/16/22 15:45 Time Spent with Patient Time Spent with Patient: 25-34 minutes Time was spent: preparing to see the patient(eg.review tests), obtaining and/or reviewing separately otained hiistory and counseling the patient
[2022-03-16 20:00] VITALS: BP 173/100; PULSE 57; RESP 18; TEMP 36.8; O2SAT 94
[2022-03-16] MEDS: Enoxaparin 40 MG/0.4 ML SYR SC (20:05)
[2022-03-16] MEDS: Melatonin 3 MG TAB PO (22:51)
[2022-03-16 22:54] VITALS: BP 186/111; PULSE 60; RESP 14; TEMP 36.5; O2SAT 97
[2022-03-16] MEDS: Acetaminophen 325 MG TAB PO ×2 (23:03→23:23)
[2022-03-17] VITALS (7 sets, daily range): BP systolic 130–189; BP diastolic 85–111; PULSE 55–61; RESP 16–18; TEMP 36–36.8; O2SAT 93–96
[2022-03-17] MEDS: traMADol 50 MG TAB PO ×2 (00:34→15:44)
--- NOTE | 2022-03-17 01:45 | DI.CT_ITS ---
Exam(s) CT HEAD WO EXAM: CT HEAD WO CLINICAL HISTORY: Increased blood pressure with new onset headache.. TECHNIQUE: Imaging Protocol: Axial computed tomography images with coronal and sagittal reformatted images were created and reviewed COMPARISON: No exams were available for comparison FINDINGS: Ventricles and Extra axial spaces: Normal in size and morphology for the patient's age. Hemorrhage: None. Cerebral parenchyma: There is no evidence of an acute territorial infarct. There are areas of decrea sed attenuation in the white matter consistent small vessel ischemic disease. There is a probable ol d cerebellar infarct on the left. Midline shift: None. Brainstem/Cerebellum: Normal. Calvarium: Normal. Visualized Paranasal sinuses/Mastoids: There is mild mucosal thickening in the paranasal sinuses but no fluid levels are seen. The mastoid air cells are clear. Soft Tissues: Unremarkable. IMPRESSION: No acute intracranial process. RADIATION DOSE DELIVERED: 865.16mGy.cm Total DLP DATA REPOSITORY: All CT scans at this facility are submitted to the National Radiology Data Registry (NRDR) Dose Index Registry (DIR) with the [employer] (ACR). RADIATION OPTIMIZATION: All CT scans at this facility use at least one of these dose optimization te chniques: automated exposure control; mA and/or kV adjustment per patient size (includes targeted exa ms where dose is matched to clinical indication); or iterative reconstruction.
[2022-03-17] MEDS: CEFEPIME 2 GM in Normal Saline 100 ML IVPB ×3 (01:50→18:06)
[2022-03-17] MEDS: Lisinopril 10 MG TAB PO (01:58)
[2022-03-17] MEDS: MORPHine 2 MG/ML SYR IVP (02:20)
[2022-03-17] MEDS: Normal Saline Flush 10 ML SYR IVP (02:22)
--- NOTE | 2022-03-17 03:00 | DI.VRAD_ITS ---
PROCEDURE INFORMATION: Exam: CT Head Without Contrast Exam date and time: 03/17/2022 2:09 AM Age: 71 years old Clinical indication: Pain; Headache not specified; Patient HX: New onset AMBROSE w/ increased BP TECHNIQUE: Imaging protocol: Computed tomography of the head without contrast. Radiation optimization: All CT scans at this facility use at least one of these dose optimization techniques: automated exposure control; mA and/or kV adjustment per patient size (includes targeted exams where dose is matched to clinical indication); or iterative reconstruction. COMPARISON: No relevant prior studies available. FINDINGS: Brain: Moderate atrophy. No intracranial hemorrhage. No mass. Few scattered foci of decreased attenuation within periventricular/subcortical white matter. 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 No definite edema. Cerebral ventricles: No hydrocephalus. Paranasal sinuses: Mild mucosal thickening of maxillary sinuses. Mastoid air cells: No significant effusion. Orbital cavities: Unremarkable as visualized. Bones/joints: No acute fracture. Soft tissues: Unremarkable. Vasculature: Mild atherosclerotic disease of intracranial arteries. IMPRESSION: Probable chronic microvascular ischemic changes. If symptoms persist, consider MRI. Dictated and Authenticated by: Jason Waller MD. Ordering:ANGELA Bowen MD
[2022-03-17] MEDS: Budesonide/Formoterol 160/4.5 6 GM 60 PUFF INH IH ×2 (07:27→22:31)
[2022-03-17] MEDS: Tiotropium Bromide-Respimat 10 PUFF INH 2 PUFF IH (07:28)
[2022-03-17] MEDS: Fluticasone NASAL SPRAY 16 GM BTL NS ×2 (07:48→22:31)
[2022-03-17] MEDS: Spironolactone 25 MG TAB 75 MG PO (07:48)
[2022-03-17] MEDS: Sertraline 25 MG TAB PO (07:49)
[2022-03-17] MEDS: Lisinopril 10 MG TAB 20 MG PO (07:49)
[2022-03-17] MEDS: Sucralfate 1 GM TAB PO ×4 (07:49→19:56)
[2022-03-17] MEDS: Pantoprazole 40 MG TABCR PO (07:49)
[2022-03-17] MEDS: Benzonatate 100 MG CAP PO ×3 (07:49→19:53)
[2022-03-17] MEDS: Sennosides/Docusate Sodium TAB 2 TAB PO ×2 (07:50→19:53)
[2022-03-17] MEDS: predniSONE 20 MG TAB 40 MG PO (07:50)
[2022-03-17] MEDS: Metoprolol CR 100 MG TABCR 200 MG PO (07:50)
[2022-03-17] MEDS: Magnesium Oxide 400 MG TAB 800 MG PO ×2 (07:50→19:54)
[2022-03-17] MEDS: guaiFENesin 600 MG TABCR PO ×2 (07:50→19:54)
[2022-03-17] MEDS: Polyethylene Glycol 3350 17 GM PACKET PO (07:51)
--- NOTE | 2022-03-17 08:35 | PT.INTREAT ---
PT Notes Visit Reasons: Pneumonia Date: 03/17/2022 PRECAUTIONS: Fall, Standard, Activity as tolerated SUBJECTIVE: Pt in bed when approached for therapy this morning, pt reports that he had an awful night and was not able to sleep, pt reports that he is having pain on his knees but the real source of his pain today is his head, going from the occiput extending to the frontal area. OBJECTIVE: ? PAIN: Patient c/o L knee pain in bed 08/10, 12/10 for the headache. ? THEREX: Supine Therapeutic exercise RLE SLR, Knee to chest, hip ab/ad, ankle pumps, circles [id number] each, LLE hip ab/add, partial SLR, ankle pumps circles [id number] each. Manual therapy [id number]: OA release followed by STM on the cervical paraspinals, upper traps. Trigger point release on the L/R periscapular muscles and levator scapula on the scapular area going up to the occiput area. ASSESSMENT: Pt reports his neck feeling looser and starting to relax a little bit post manual therapy, pt refused OOB or standing activity this session. PLAN: Continue with general conditioning for improved mobility and activity tolerance. TREATMENT CODE/TIME: 15 minutes; 54814? (9:15-9:30am)
--- NOTE | 2022-03-17 15:41 | W.PM.PROGNOT ---
Date of Service Date of service: 03/17/22 Time of Service: 15:41 Assessment and Plan Assessment and plan (1) Left lower lobe pneumonia: Status: Acute Assessment and plan: WBC continues to improve continue cefepime day 6/7 blood cultures no growth to date, sputum with normal jesi, legionella negative MRSA negative continue Prednisone burst Albuterol and Duoneb PRN Guaifenesin and tessalon perles for cough (2) COPD (chronic obstructive pulmonary disease): Status: Chronic Assessment and plan: As above (3) Hypertension: Status: Chronic Assessment and plan: Continue Lisinopril, metoprolol; monitor BP. has been elevated during this hospitalization but shows a history of low reading. (4) Depression: Status: Chronic Assessment and plan: Continue Sertraline (5) Obesity: Status: Chronic Assessment and plan: Heart Healthy diet DASH diet (6) Coronary artery disease: Status: Chronic Assessment and plan: continue Metoprolol - telemetry; monitor HR/BP (7) DVT prophylaxis: Status: Acute Assessment and plan: Enoxaparin 40 mg daily (8) Discharge planning issues: Status: Acute Assessment and plan: Home when medically stable. likely Friday after completion of IV antibiotics. Discussed with Dr Mccoy Subjective Subjective Patient reports: no new complaints, feels better, tolerating liquids well, tolerating a regular diet, voiding w/o difficulty and afebrile; denies shortness of breath Exam Const General: comfortable, no acute distress and other (older than stated age) Nutritional Appearance: overweight Orientation: alert, awake and oriented x3 HENMT Face and sinus: other (rhinophyma) Chest Chest: normal inspection of the chest Resp Effort & Inspection: normal respiratory effort Auscultation: diminished lung sounds and no wheezes Cardio Rate: regular rate Rhythm: regular rhythm GI Inspection: normal to inspection Palpation: soft Skin General skin exam: no rashes or lesions noted Neuro General: patient alert, patient awake, patient oriented x3 and no focal motor deficits Objective Last Vital Signs Temp 36.6 C 03/17/22 15:20 Pulse 55 L 03/17/22 15:20 Resp 18 03/17/22 15:20 BP 173/97 H 03/17/22 15:20 Pulse Ox 95 03/17/22 15:20 Time Spent with Patient Time Spent with Patient: 25-34 minutes Time was spent: preparing to see the patient(eg.review tests), obtaining and/or reviewing separately otained hiistory, ordering medications,tests, procedures, indepentently interpreting results and counseling the patient
[2022-03-17] MEDS: Acetaminophen 325 MG TAB PO (15:44)
[2022-03-17 16:04] LABS: Source Nasal/Nares
[2022-03-17 16:28] LABS: HCT 38.7 % (40.0-50.0); HGB 13.2 g/dL (13.5-17.5); MCH 33.1 pg (27.0-33.0); MCHC 34.1 % (32.0-36.0); MCV 97 fL (80-95); MPV 10.5 fL (8.0-11.0); Platelet Count 274 10^3/uL (130-400); RBC 3.99 10^6/uL (4.36-5.78); RDW 11.8 % (11.8-14.1); RDW-SD 42.1 fL; WBC 13.88 10^3/uL (4.4-10.8)
[2022-03-17 16:36] LABS: COVID-19 PCR Negative (Negative)
[2022-03-17 16:41] LABS: Anion Gap 3.7 mmol/L (3-11); BUN 16 mg/dL (7-18); CO2 30.3 mmol/L (21.0-32.0); CREATININE 0.7 mg/dL (0.70-1.30); Calcium 8.8 mg/dL (8.5-10.1); Chloride 95 mmol/L (98-107); Estimated GFR 98.51 (mL/min/1.73m2); Glucose 132 mg/dL (74-106); Potassium 4.1 mmol/L (3.5-5.1); Sodium 129 mmol/L (136-145)
[2022-03-17 17:10] LABS: Absolute Lymphocyte Count 1.11 10^3/uL (1.2-3.4); Absolute Monocyte Count 1.25 10^3/uL (0.1-0.8); Absolute Neutrophil Count 11.38 10^3/uL (1.2-6.7); Diff Comment Manual Differential; Metamyelocytes % 1; RBC Morphology Normal
[2022-03-17] MEDS: Enoxaparin 40 MG/0.4 ML SYR SC (19:56)
[2022-03-17] MEDS: Melatonin 3 MG TAB PO (22:30)
[2022-03-18] MEDS: Normal Saline Flush 10 ML SYR IVP (01:53)
[2022-03-18] MEDS: CEFEPIME 2 GM in Normal Saline 100 ML IVPB ×2 (01:53→09:33)
[2022-03-18 02:46] VITALS: BP 129/88; PULSE 59; RESP 16; TEMP 36.7; O2SAT 95
[2022-03-18 07:34] VITALS: BP 147/88; PULSE 60; RESP 17; TEMP 36.3; O2SAT 96
[2022-03-18] MEDS: Fluticasone NASAL SPRAY 16 GM BTL NS (08:06)
[2022-03-18] MEDS: predniSONE 20 MG TAB 40 MG PO (08:07)
[2022-03-18] MEDS: Lisinopril 10 MG TAB 20 MG PO (08:07)
[2022-03-18] MEDS: guaiFENesin 600 MG TABCR PO (08:07)
[2022-03-18] MEDS: Polyethylene Glycol 3350 17 GM PACKET PO (08:07)
[2022-03-18] MEDS: Sennosides/Docusate Sodium TAB 2 TAB PO (08:08)
[2022-03-18] MEDS: Sucralfate 1 GM TAB PO (08:08)
[2022-03-18] MEDS: Benzonatate 100 MG CAP PO (08:08)
[2022-03-18] MEDS: Pantoprazole 40 MG TABCR PO (08:08)
[2022-03-18] MEDS: Spironolactone 25 MG TAB 75 MG PO (08:08)
[2022-03-18] MEDS: Sertraline 25 MG TAB PO (08:08)
[2022-03-18] MEDS: Magnesium Oxide 400 MG TAB 800 MG PO (08:08)
[2022-03-18] MEDS: Metoprolol CR 100 MG TABCR 200 MG PO (08:08)
[2022-03-18] MEDS: Budesonide/Formoterol 160/4.5 6 GM 60 PUFF INH IH (08:17)
[2022-03-18] MEDS: Tiotropium Bromide-Respimat 10 PUFF INH 2 PUFF IH (08:17)
--- NOTE | 2022-03-18 09:19 | PDOC.CMDIS ---
- If Service Date Differs Date of service: 03/18/22 Time of Service: 09:19 LACE Index Scoring Tool - Questions: Length of Stay (in days): 4 - 6 Acuity (Admit via E.D.?): Yes Comorbidities: Chronic Pulmonary Disease (COPD) E.D. Visits: 2 - Answers: Total Score: 11 Risk of Readmission: High Risk Care Management Discharge Reason for Hospitalization: Left lower lobe pneumonia Discharge Plan: Tim is discharged back to the [facility] via [facility] W/C quang. Tim will follow up with community/facility providers, as scheduled and follow discharge plan of care as prescribed. Patient/Family Education Needs: Review discharge instructions, limitations, medications and plan to follow up with community providers. Discuss ask me three and goals of self care. Services Needed at Discharge: Nursing Home Facility ([facility]), Transportation ([facility], W/[place] [place], coodinated by CM)
--- NOTE | 2022-03-18 10:53 | W.PM.DS.N ---
Date of service: 03/18/22 Time of Service: 10:53 DS: Diagnosis Discharge Diagnosis (1) Left lower lobe pneumonia: Status: Resolved Asessment and Plan: Resolved (2) COPD (chronic obstructive pulmonary disease): Status: Chronic (3) Hypertension: Status: Chronic (4) Depression: Status: Chronic (5) Obesity: Status: Chronic (6) Coronary artery disease: Status: Chronic Discharge Plan Disposition Patient Disposition: Nursing Home Facility(SNF) Condition: Fair Discharge Details Reason For Visit: Pneumonia Admit Date/Time: 03/12/22 16:41 Admit Provider: Jessi Cantu Attending Provider: Jessi Cantu Primary Care Provider: Unknown,Unknown Hospital Course Hospital Course: This 71-year-old male with a past medical history of COPD, CHF, obesity, alcoholism, hypertension, trapped lung, cardiac pacemaker, coronary artery disease, Covid 19, hyponatremia and empyema with a recent surgical history of cholecystectomy, presented to the [facility] with a chief complaint of increased shortness of breath, productive cough and wheezing for one week.? He reported he had been doing albuterol inhalers at the [facility], which he stated did little to nothing to help his symptoms.? He was been unable to tolerate oxygen via nasal cannula or facemask.? His oxygen saturation was 89 to 90% on room air on arrival to the ED.? He was placed on oxygen via a simple facemask at 2 LPM and this brought his O2 sat up to 90 to 93%. Labs in the ED white blood cell count of 38, RBCs 4.06 hemoglobin 13.5 hematocrit 39.5, MCV MCH elevated, absolute neutrophils 30.79, sodium 129, chloride 92, BUN 26 creatinine 0.9, GFR 91, glucose 123 bilirubin 1.1 magnesium 1.9, initial troponin less than 50 negative COVID, flu and RSV.? Chest x-ray showed a left lower basilar infiltrate.? Ceftriaxone and azithromycin were initiated. His proBNP was 3800, he was given 20 mg of Lasix with moderate diuresis. Chest/Abdomen CT showed multifocal pneumonia no evidence of intra-abdominal abscess, with some slight thickening of the distal sigmoid colon and rectum.? He was admitted to the medical floor for IV antibiotics. Patient participated with PT for strengthening, left knee and neck pain.? He is improving, however did refuse to do any exercises out of bed or standing a few times.? He is encouraged to participate actively with PT to improve general conditioning, improve mobility and tolerate activity better.? After a complete course of antibiotics and prednisone, he has returned to baseline and vital signs are stable.? He has had no fevers. The only medication change while he was hospitalized was an increase in Lisinopril from 10 mg to 20 mg per day.? His blood pressures have been running 140s/80s down from 180s/90-100s. This should continue to? be followed and medication adjusted appropriately. ??He is alert, conversant and agrees he can return to the [facility] facility today.? He is discharged via RCT, stable. ? 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 Discussed with Dr Kwong Scio Meds and New Rx's Prescriptions: New benzonatate 100 mg Capsule 100 mg PO TID PRN (Reason: Cough) Qty: 0 0RF lisinopril 20 mg tablet 20 mg PO DAILY Qty: 30 0RF Continued albuterol sulfate 90 mcg/actuation aerosol powdr breath activated 2 inh inhalation TID Rx Instructions: *and* q4h PRN calcium carbonate 215 mg calcium (500 mg) tablet,chewable 500 mg PO Q6H PRN fluticasone propionate 50 mcg/actuation spray,suspension 1 spray intranasal BID Rx Instructions: administer into each nostril sertraline 25 mg tablet 25 mg PO DAILY Ultra B-100 Complex Tablet Extended Release 1 tab PO DAILY pantoprazole 40 mg tablet,delayed release (DR/EC) 40 mg PO DAILY polyethylene glycol 3350 [Miralax] 17 gram powder in packet 17 g PO DAILY PRN magnesium oxide 400 mg magnesium capsule 800 mg PO DAILY sennosides-docusate sodium [Senexon-S] 8.6-50 mg tablet 2 tab-cap PO DAILY acetaminophen [Tylenol Extra Strength] 500 mg tablet 1,000 mg PO TID PRN metoprolol succinate 200 mg tablet extended release 24 hr 200 mg PO DAILY Rx Instructions: Hold for HR < 60 Trelegy Ellipta 200-62.5-25 mcg blister with device 1 inh inhalation DAILY Creon 12,000-38,000 -60,000 unit capsule,delayed release(DR/EC) 1 cap PO TID Qty: 90 3RF Rx Instructions: administer with meals and/or snacks melatonin 3 mg capsule 3 mg PO HS beer PO Rx Instructions: may have 2 beers by mouth daily 12 or 16oz,only 1 beer if 24oz container colestipol 1 gram tablet 2 g PO BID sucralfate 1 gram tablet 1 g PO QID Rx Instructions: GI BLEED spironolactone 25 mg tablet 75 mg PO DAILY dextromethorphan-guaifenesin [Tussin DM] 10-100 mg/5 mL Syrup 10 ml PO Q4H PRN oxymetazoline [Afrin Sinus (oxymetazoline)] 0.05 % [place],Non-Aerosol 1 spray INTRANASAL Q12H ipratropium-albuterol 0.5 mg-3 mg(2.5 mg base)/3 mL Solution For Nebulization 3 ml INHALATION TID tramadol 50 mg Tablet 50 mg PO BID Discharge Instructions Instructions: Lisinopril (By mouth), Heart Failure (DC), Community Acquired Pneumonia (DC), Hypertension (DC) Stand Alone Forms: Nursing Discharge Form Referrals: Radha Chand NP [NURSE PRACTITIONER] - (follow up per [facility] ) Ike Chahal MD [ [facility] STAFF PHYSICIAN] - (March 19, 2022 @ 1300h Rhinophyma interfering with tolerance of oxygen delivery devices) Activity:: Activity as Tolerated Equipment/Supplies:: No Equipment Needed Diet:: As Tolerated Discharge Orders Discharge Orders: Discharge Order (Routine); Ordered 03/18/22 Ordered By: Miladys Prado Discharge Data Discharge Date/Time-TO BE ENTERED AT DEPARTURE: 03/18/22 11:28 Discharge Comment: patient went to the [facility] with [facility] wheelchair #[id number] DS: Summary Time Spent with Patient providing and/or coordinating discharge services: Greater than 30 minutes Status at Discharge Functional status at discharge: uses cane/walker Overall status at discharge: patient is back to baseline Mental Status: mental status grossly normal Speech and Movement: speech and movement normal Mood: congruent mood Affect: normal affect Exam Const General: comfortable, no acute distress and other (older than stated age) Nutritional Appearance: overweight Orientation: alert, awake and oriented x3 HENMT Face and sinus: other (rhinophyma) Chest Chest: normal inspection of the chest Resp Effort & Inspection: normal respiratory effort Auscultation: diminished lung sounds and no wheezes Cardio Rate: regular rate Rhythm: regular rhythm GI Inspection: normal to inspection Palpation: soft Skin General skin exam: no rashes or lesions noted Neuro General: patient alert, patient awake, patient oriented x3 and no focal motor deficits Psych Mental Status: mental status grossly normal Speech and Movement: speech and movement normal Mood: congruent mood Affect: normal affect DS: Data Vitals/I&O Vitals and I&O: Vital Signs Temperature 36.3 C L 03/18/22 07:34 Temperature Source Tympanic 03/18/22 07:34 Pulse 60 03/18/22 07:34 Pulse Rhythm Regular 03/18/22 09:51 Pulse 81 03/12/22 15:02 Respiratory Rate 17 03/18/22 07:34 Respiratory Effort Non-Labored 03/18/22 09:51 Respiratory Depth Normal 03/18/22 09:51 Respiratory Pattern Normal 03/18/22 09:51 Blood Pressure 147/88 H 03/18/22 07:34 Blood Pressure Mean 79 03/12/22 17:45 Blood Pressure Position Sitting 03/12/22 12:37 Pulse Oximetry 96 03/18/22 07:34 Oxygen Delivery Method Room Air 03/18/22 07:34 Oxygen Flow Rate 0 03/18/22 07:34 Pain Level 2 03/18/22 07:34 Comment 03/17/22 03:32 Intake & Output 03/17/22 03/17/22 03/18/22 11:59 23:59 11:59 Intake Total 200 / 480 280 / 480 100 / 100 Output Total 1350 / 1900 550 / 1900 200 / 200 Balance -1150 / -1420 -270 / -1420 -100 / -100 Weight 103.3 kg 103.3 kg Intake: IV 200 / 300 100 / 300 100 / 100 Oral 180 / 180 Output: Urine 1350 / 1900 550 / 1900 200 / 200 Other: Urine Color Yellow Straw Yellow Urine Appearance Clear Clear Clear Urine Odor None Normal Normal Comment bedside urinal. Voiding Methods Urinal Urinal Urinal Data Completed and Pending Labs on day of discharge: Labs from last 24 hours 03/17/22 03/17/22 03/17/22 16:15 16:15 15:53 WBC 13.88 H RBC 3.99 L Hgb 13.2 L D Hct 38.7 L MCV 97 H MCH 33.1 H MCHC 34.1 RDW 11.8 Plt Count 274 MPV 10.5 Immature Gran % 0.0 Neutrophils % 82.0 Lymphocytes % 8.0 Monocytes % 9.0 Eosinophils % 0.0 Basophils % 0.0 Metamyelocytes % 1 Nucleated RBC % 0.0 Absolute Neutrophils 11.38 H Absolute Lymphocytes 1.11 L Absolute Monocytes 1.25 H Absolute Eosinophils 0.00 Absolute Basophils 0.00 RBC Morphology Normal Sodium 129 L Potassium 4.1 Chloride 95 L Carbon Dioxide 30.3 Anion Gap 3.7 BUN 16 Creatinine 0.7 Est GFR (CKD-EPI 2020) 98.51 Glucose 132 H Calcium 8.8 COVID-19 Source Nasal/Nares SARS-CoV-2 (PCR) Negative PFSH All Active Problems (Updated 03/19/22 @ 19:07 by Miladys Prado NP) Hypertension (Chronic) Bloating (Acute) Heme positive stool (Acute) Infected sebaceous cyst of skin (Acute) Trapped lung (Acute) Sacroiliitis (Acute) COPD (chronic obstructive pulmonary disease) (Chronic) Depression (Chronic) Lymphedema (Acute) HTN (hypertension) with goal to be determined (Chronic) Obesity (Chronic) DNR (do not resuscitate) (Acute) Presence of cardiac pacemaker (Chronic) [employer] PPM MRI model L111 Serial # [id number] placed dual chamber 04/30/2017 for CHB at [facility]. 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 Most likely this is inflammatory tissue and not actually fluid. pt has had multiple taps. He was on a prolonged course of IV abx and has failed to resolve. This is a sequelae of this pericardial tamponade following disruption of his RA lead from pacemaker insertion. Hyponatremia, hypo-osmolarity, or hypo-osmolar hyponatremia Recurrent left pleural effusion Surgical History History of permanent cardiac pacemaker placement with subsequent repositioning S/P laparoscopic cholecystectomy Social History Smoking/Tobacco Use Status: Never Smoking risk assessment performed?: Yes Alcohol Intake: current Alcohol Intake frequency: 0-2 drinks per day Alcohol type: beer Housing: assisted living facility Pets and animals: No Do you feel safe at home: Yes Do you feel safe in your relationship?: Yes Time Spent with Patient Time Spent with Patient: <45 minutes Time was spent: preparing to see the patient(eg.review tests), obtaining and/or reviewing separately otained hiistory, ordering medications,tests, procedures, referring, communicating with other health dog day care attendant, indepentently interpreting results, counseling the patient and care coordination
--- NOTE | 2022-03-19 18:30 | INDS_ITS ---
Date of service: 03/19/22 PT Notes Visit Reasons: Pneumonia Physical Therapy Inpatient Discharge Summary Date: 03/19/22 Dates of service: 03/15/2022 to 03/17/2022 This is a clinical summary of care provided for the duration of dates listed above. No charge was made in the completion of this documentation. Referring Doctor:? Liliya Spicer NP PT Orders: PT CONSULT: limited ability to ambulate Precautions: standard Patient Profile/Admitting Diagnosis:??Patient admitted for medical management of pneumonia. He is a resident of [facility], where he has lived for years. PMHX: All Active Problems?(Updated 03/12/22 @ 20:50 by Miladys Prado NP) Fluid overload (Acute) Hypertension (Chronic) Discharge planning issues (Acute) DVT prophylaxis (Acute) Left lower lobe pneumonia (Acute) Abdominal pain (Acute) Bloating (Acute) Heme positive stool (Acute) Infected sebaceous cyst of skin (Acute) Trapped lung (Acute) Sacroiliitis (Acute) COPD (chronic obstructive pulmonary disease) (Chronic) Depression (Chronic) Lymphedema (Acute) HTN (hypertension) with goal to be determined (Chronic) Obesity (Chronic) DNR (do not resuscitate) (Acute) Presence of cardiac pacemaker (Chronic) [employer] PPM MRI model L111 Serial # [id number] placed dual chamber 04/30/2017 for CHB at [facility]. Complications included pericardial effusion with tamponade? and need for? reposition R atrial lead 05/16/20Coronary artery disease (Chronic) Rhinophyma (Acute) Vitamin D deficiency (Acute) Physical Therapy Inpatient Discharge Summary Medical History? CHB (complete heart block) had permanent pacemaker implanted 2017 for thisHistory of empyema of pleura this is chronic.? Most likely this is inflammatory tissue and not actually fluid. pt has had multiple taps.? He was on a prolonged course of IV abx and has failed to resolve.? This is a sequelae of this pericardial tamponade following disruption of his RA lead from pacemaker insertion. Hyponatremia, hypo-osmolarity, or hypo-osmolar hyponatremia Recurrent left pleural effusion Social History/Home Situation: Resident of [facility]. Plans to return there on Friday if possible. States that he normally walks short distances in his room, to and from wheelchair. He states that he had participated in PT previously, but had to stop due to frequency of falls. States that he has used a FWW in the past, but feels that contributed to his falls, and now he exclusively uses a cane. Equipment Owned/DME: wheelchair, cane Subjective:? NT. See most recent MANAGER OF FINANCIAL REPORTING notes. 39 Objective:? General Observation: NT. See most recent MANAGER OF FINANCIAL REPORTING notes. Mental Status: NT. See most recent MANAGER OF FINANCIAL REPORTING notes. Pain: NT. See most recent MANAGER OF FINANCIAL REPORTING notes. ROM: Right Upper Extremity: Shoulder flexion 90*. ER WNL. Elbow motion full. Left Upper Extremity:? Shoulder flexion 100*. ER WNL. Elbow motion full. Right Lower Extremity: WFL Left Lower Extremity: Left knee allows 0-80* flexion. Strength: Right Upper Extremity: Shoulder motion grossly 3-/5. Triceps 3+/5. Left Upper Extremity: Shoulder motion grossly 3-/5. Triceps 3+/5. Bliat? Lower Extremity: unable to assess via MMT due to agitation level, but able to demonstrate SLR, heel slide and ankle pumps for 3/5 functional movement. Bed Mobility/Transfers: supine-sit: supervision sit-stand: supervision stand-sit: supervision, although with limited safety awareness with regards to IV Gait:? Ambulates 10'x2 with cane in RUE. Decreased safety awareness, with patient disregarding cues to allow for safe management of IV lines, and poorly navigating obstacles during ambulation. Discussed need to call for assistance before ambulating during his stay, particularly while IV line is in place. Balance:? Static Sitting: good Dynamic Sitting: good Static Standing: fair Dynamic Standing: poor Assessment:?? Patient is a 71 year old male referred to physical therapy services with the diagnosis of limited ability to ambulate.? Patient presents with baseline level of mobility, with significant limitations in safety awareness. Patient has a history of multiple falls, and is at high risk for additional falls. He requires skilled PT intervention for open and closed chain strengthening to allow for early cardiovascular retraining and UE/LE strengthening to maintain function and mobility during acute care hospitalization. He is at high risk for loss of mobility given his baseline limitations and multiple co-morbidities. He currently demonstrates the following impairment level findings: 1. decreased left knee ROM 2. left knee instability 3. h/o multiple falls 4. decreased safety awareness ?Impairments are contributing to the following functional limitations: 1. high risk for falls 2. high risk for loss of functional mobility during hospitalization for acute medical issues Goals: Goals X1 week 1. Supine-Sit : supervision NOT MET 2. Sit-Supine : supervision NOT MET 3. Sit-Stand : supervision NOT MET 4. Stand-Sit : supervision NOT MET 5. Bed-Chair : supervision with cane NOT MET 6. Chair-Bed : supervision with cane NOT MET 7. Gait : 10' with cane and supervision, with demonstration of good safety awareness NOT MET DISCHARGE RECOMMENDATIONS: Return to? Trauma Therapist Care TREATMENT CODE/TIME: NC Thank you for the opportunity to participate in the care of this patient. Palmira Malloy PT, DPT, CLT [facility] [place], [place]
== END 2022-03-18 11:28 | disposition skilled nursing facility (03) | DRG 194 ==
LOC: ER 16:56 → MS 18:04
PROVIDERS: Nurse Practitioner Acute Care; Nurse Practitioner Family; Admitting Provider Internal Medicine; Emergency Provider Registered Nurse Emergency; Visit Provider Internal Medicine
DX: J18.9 Pneumonia, unspecified organism (principal); J44.0 Chronic obstructive pulmonary disease with (acute) lower respiratory infection; F32.A Depression, unspecified; I50.9 Heart failure, unspecified; I25.10 Atherosclerotic heart disease of native coronary artery without angina pectoris; E66.9 Obesity, unspecified; Z68.31 Body mass index [BMI] 31.0-31.9, adult; Z95.0 Presence of cardiac pacemaker; L71.1 Rhinophyma; F10.21 Alcohol dependence, in remission; I11.0 Hypertensive heart disease with heart failure; Z86.16 Personal history of COVID-19; Z66 Do not resuscitate; E55.9 Vitamin D deficiency, unspecified
CPT/HCPCS: 36410; 36415; 71275; 74177; 80048; 80053; 84145; 85027; 87040; 87081; 87449; 87635; 87637; 94640; 96365; 96367; 96375; 97110; 97161; 97530; 99285; J1650; 70450; 71045; 80202; 83605; 83735; 83880; 84484; 85025; 87070; 87205; 87899; 99222; 99233; 99239; J0456; J0696; J1941; J2270; J2930; J3480; J7512

== ENCOUNTER 2022-03-21 18:44 | Outpatient (REF) | payer MEDICARE, MEDICAID, SELFPAY ==
[2022-03-21 19:41] LABS: Abs Immature Grans 0.42 10^3/uL (0.0-0.06); Absolute Basophil Count 0.05 10^3/uL (0.0-0.2); Absolute Lymphocyte Count 3.56 10^3/uL (1.2-3.4); Basophils % 0.5; Eosinophils % 0.9; HCT 37.7 % (40.0-50.0); HGB 12.8 g/dL (13.5-17.5); Lymphocytes % 33.8; MCH 33.2 pg (27.0-33.0); MCV 98 fL (80-95); MPV 11.5 fL (8.0-11.0); Monocytes % 9.5; Neutrophils % 51.3; Platelet Count 297 10^3/uL (130-400); RBC 3.85 10^6/uL (4.36-5.78); RDW 12.5 % (11.8-14.1); RDW-SD 44.4 fL; WBC 10.53 10^3/uL (4.4-10.8)
[2022-03-21 20:21] LABS: Hemoglobin A1C 5.9 % (<5.7)
[2022-03-21 20:24] LABS: ALT 32 U/L (16-63); AST 19 U/L (15-37); Alkaline Phosphatase 76 U/L (46-116); Anion Gap 9.7 mmol/L (3-11); BUN 16 mg/dL (7-18); Bilirubin, Total 0.3 mg/dL (0.2-1.0); CO2 26.3 mmol/L (21.0-32.0); CREATININE 0.7 mg/dL (0.70-1.30); Calcium 8.5 mg/dL (8.5-10.1); Chloride 95 mmol/L (98-107); Estimated GFR 98.51 (mL/min/1.73m2); Folate 17.6 ng/mL (8.6-20.0); Glucose 92 mg/dL (74-106); Magnesium 1.9 mg/dL (1.8-2.4); Potassium 4.5 mmol/L (3.5-5.1); Sodium 131 mmol/L (136-145); TSH (W/Ref FT4) 1.76 uIU/mL (0.36-3.74); Total Protein 6.3 g/dL (6.4-8.2); Vitamin B12 722 pg/mL (193-986)
[2022-03-21 20:27] LABS: Ferritin 1299 ng/mL (26-388)
[2022-03-21 20:47] LABS: NT-proBNP 1013 pg/mL (<300)
[2022-03-21 21:02] LABS: Iron 79 ug/dL (65-175); Total Iron Binding Capacity 206 ug/dL (250-450); Transferrin Sat 38 % (20-55)
[2022-03-21 21:42] LABS: Vitamin D 25 Total 21.2 ng/mL (30-100)
== END 2022-03-21 18:45 | disposition home or self-care (01) ==
LOC: LBN 18:44
PROVIDERS: Visit Provider Nurse Practitioner Gerontology
DX: D51.9 Vitamin B12 deficiency anemia, unspecified (principal); I50.20 Unspecified systolic (congestive) heart failure; J44.9 Chronic obstructive pulmonary disease, unspecified; J15.0 Pneumonia due to Klebsiella pneumoniae; I25.10 Atherosclerotic heart disease of native coronary artery without angina pectoris; I10 Essential (primary) hypertension; E55.9 Vitamin D deficiency, unspecified; R73.09 Other abnormal glucose; R68.89 Other general symptoms and signs
CPT/HCPCS: 80053; 82306; 82607; 82728; 82746; 83036; 83540; 83550; 83735; 83880; 84443; 85025

== ENCOUNTER 2022-04-01 22:51 | Outpatient (REF) | payer MEDICARE, MEDICAID, SELFPAY ==
[2022-04-01 23:25] LABS: Abs Immature Grans 0.03 10^3/uL (0.0-0.06); Absolute Basophil Count 0.08 10^3/uL (0.0-0.2); Absolute Eosinophil Count 0.26 10^3/uL (0.0-0.7); Absolute Lymphocyte Count 2.11 10^3/uL (1.2-3.4); Absolute Monocyte Count 0.96 10^3/uL (0.1-0.8); Absolute Neutrophil Count 4.95 10^3/uL (1.2-6.7); Eosinophils % 3.1; HCT 36.6 % (40.0-50.0); HGB 11.9 g/dL (13.5-17.5); Immature Grans % 0.4; Lymphocytes % 25.1; MCH 32.9 pg (27.0-33.0); MCHC 32.5 % (32.0-36.0); MCV 101 fL (80-95); MPV 11.9 fL (8.0-11.0); Monocytes % 11.4; Platelet Count 224 10^3/uL (130-400); RBC 3.62 10^6/uL (4.36-5.78); RDW 12.9 % (11.8-14.1); RDW-SD 47.8 fL; WBC 8.39 10^3/uL (4.4-10.8)
[2022-04-01 23:45] LABS: ALT 24 U/L (16-63); AST 22 U/L (15-37); Albumin 3.4 g/dL (3.4-5.0); Alkaline Phosphatase 86 U/L (46-116); Anion Gap 9.9 mmol/L (3-11); BUN 19 mg/dL (7-18); Bilirubin, Total 0.4 mg/dL (0.2-1.0); CO2 24.1 mmol/L (21.0-32.0); CREATININE 1.1 mg/dL (0.70-1.30); Chloride 102 mmol/L (98-107); Estimated GFR 71.77 (mL/min/1.73m2); Glucose 114 mg/dL (74-106); NT-proBNP 758 pg/mL (<300); Potassium 4.6 mmol/L (3.5-5.1); Sodium 136 mmol/L (136-145); Total Protein 7.2 g/dL (6.4-8.2)
== END 2022-04-01 22:52 | disposition home or self-care (01) ==
LOC: LBN 22:51
PROVIDERS: PCP Legal Medicine; Visit Provider Nurse Practitioner Gerontology
DX: J15.0 Pneumonia due to Klebsiella pneumoniae (principal); I25.10 Atherosclerotic heart disease of native coronary artery without angina pectoris; I10 Essential (primary) hypertension; I50.20 Unspecified systolic (congestive) heart failure; R68.89 Other general symptoms and signs
CPT/HCPCS: 80053; 83880; 85025

== ENCOUNTER 2022-04-09 02:24 | Outpatient (CLI) | payer MEDICARE, MEDICAID, SELFPAY ==
--- NOTE | 2022-04-09 09:57 | DI.RAD_ITS ---
Exam(s) XR CHEST 2V PA LATERAL EXAM: XR CHEST 2V PA LATERAL CLINICAL HISTORY: F/U LT BASILAR INFILTRATES. TECHNIQUE: 2D digital imaging was performed. COMPARISON: CR XR PORTABLE CHEST AP from 03/12/[address] CHEST PE ABD PELVIS W from 03/12/2022 FINDINGS: 2 views: Again noted is a bipolar left subclavian pacemaker lead tips in RA and RV. Heart size unchanged. Mediastinum not widened. No pulmonary edema. Prominent right-sided pleural calcifications again noted. Patchy infiltrates noted. There is a locu lated pleural effusion on the left side again noted. This is also seen on the CT scan of 03/12/2022 xzc patchy infiltrates again noted bilaterally. No pneumothorax. IMPRESSION: No significant change. Persistent bilateral findings as described above. Significant size loculated pleural effusion on the left again noted. DATA REPOSITORY: RADIATION DOSE DELIVERED:
== END 2022-04-09 02:44 ==
LOC: DI 02:24
PROVIDERS: PCP Legal Medicine; Visit Provider Nurse Practitioner Gerontology
DX: R91.8 Other nonspecific abnormal finding of lung field (principal)
CPT/HCPCS: 71046

== ENCOUNTER 2022-04-15 19:08 | Outpatient (REF) | payer MEDICARE, MEDICAID, SELFPAY ==
[2022-04-15 20:15] LABS: Abs Immature Grans 0.08 10^3/uL (0.0-0.06); Absolute Eosinophil Count 0.25 10^3/uL (0.0-0.7); Absolute Lymphocyte Count 2.88 10^3/uL (1.2-3.4); Absolute Monocyte Count 1.43 10^3/uL (0.1-0.8); Absolute Neutrophil Count 5.48 10^3/uL (1.2-6.7); Eosinophils % 2.4; HCT 35.1 % (40.0-50.0); HGB 11.2 g/dL (13.5-17.5); Immature Grans % 0.8; Lymphocytes % 28.2; MCH 32.4 pg (27.0-33.0); MCHC 31.9 % (32.0-36.0); MCV 101 fL (80-95); Neutrophils % 53.6; Platelet Count 257 10^3/uL (130-400); RBC 3.46 10^6/uL (4.36-5.78); RDW 13.9 % (11.8-14.1); RDW-SD 51.6 fL; WBC 10.22 10^3/uL (4.4-10.8)
[2022-04-15 20:23] LABS: Anion Gap 12.1 mmol/L (3-11); BUN 14 mg/dL (7-18); CO2 21.9 mmol/L (21.0-32.0); CREATININE 0.6 mg/dL (0.70-1.30); Calcium 8.7 mg/dL (8.5-10.1); Chloride 100 mmol/L (98-107); Glucose 124 mg/dL (74-106); NT-proBNP 643 pg/mL (<300); Potassium 4.4 mmol/L (3.5-5.1); Sodium 134 mmol/L (136-145)
== END 2022-04-15 19:09 | disposition home or self-care (01) ==
LOC: LBN 19:08
PROVIDERS: PCP Legal Medicine; Visit Provider Nurse Practitioner Gerontology
DX: J15.0 Pneumonia due to Klebsiella pneumoniae (principal); J44.9 Chronic obstructive pulmonary disease, unspecified; I25.10 Atherosclerotic heart disease of native coronary artery without angina pectoris; I50.20 Unspecified systolic (congestive) heart failure
CPT/HCPCS: 80048; 83880; 85025

== ENCOUNTER 2022-04-29 14:29 | Outpatient (REF) | payer MEDICARE, MEDICAID, SELFPAY ==
--- NOTE | 2022-04-29 14:00 | SKI_PTH ---
PATIENT: Tim Mera LOC: [facility] U#:[id number] AGE/SX: 71/M ROOM: RE04/29/[address]: Ike Chahal MD : 1950 BED: DIS: 04/29/2022 SPEC #: [id number] RECD: 04/29/22 18:10 STATUS: BENJAMIN REChioma #: [id number] ALEX: 04/29/22 14:[address]: Ike Chahal DEPT: Surgical Specimen RECD BY: Leyla Wadsworth ENTERED: 04/29/22 18:11 SP TYPE: RIVERA WALLIS DR: Monalisa Dong Tissues: 1 - SKIN BIOPSY(SHAVE/PUNCH) Procedures: SKIN LEVEL 4 Comments: [id number]
== END 2022-04-29 14:30 | disposition home or self-care (01) ==
LOC: LBN 14:29
PROVIDERS: PCP Legal Medicine; Visit Provider Otolaryngology
DX: L90.5 Scar conditions and fibrosis of skin (principal)
CPT/HCPCS: 88305

== ENCOUNTER 2022-05-28 18:14 | Outpatient (REF) | payer MEDICARE, MEDICAID, SELFPAY ==
[2022-05-28 17:53] LABS: Abs Immature Grans 0.05 10^3/uL (0.0-0.06); Absolute Basophil Count 0.09 10^3/uL (0.0-0.2); Absolute Eosinophil Count 0.14 10^3/uL (0.0-0.7); Absolute Lymphocyte Count 1.59 10^3/uL (1.2-3.4); Absolute Monocyte Count 1.63 10^3/uL (0.1-0.8); Absolute Neutrophil Count 6.88 10^3/uL (1.2-6.7); Basophils % 0.9; Eosinophils % 1.3; HCT 36.2 % (40.0-50.0); Immature Grans % 0.5; Lymphocytes % 15.3; MCH 33.3 pg (27.0-33.0); MCHC 33.1 % (32.0-36.0); MCV 101 fL (80-95); Monocytes % 15.7; Neutrophils % 66.3; Platelet Count 228 10^3/uL (130-400); RDW 13.1 % (11.8-14.1); WBC 10.38 10^3/uL (4.4-10.8)
[2022-05-28 18:15] LABS: ALT 17 U/L (16-63); AST 17 U/L (15-37); Albumin 3.3 g/dL (3.4-5.0); Alkaline Phosphatase 98 U/L (46-116); Anion Gap 7.3 mmol/L (3-11); BUN 13 mg/dL (7-18); Bilirubin, Total 0.4 mg/dL (0.2-1.0); CO2 25.7 mmol/L (21.0-32.0); CREATININE 0.8 mg/dL (0.70-1.30); Calcium 8.9 mg/dL (8.5-10.1); Chloride 97 mmol/L (98-107); Estimated GFR 94.62 (mL/min/1.73m2); Glucose 111 mg/dL (74-106); NT-proBNP 548 pg/mL (<300); Potassium 4.9 mmol/L (3.5-5.1); Sodium 130 mmol/L (136-145); Total Protein 7.6 g/dL (6.4-8.2)
[2022-05-28 20:22] LABS: Diff Comment Agrees w/ Instrument; RBC Morphology Normal
== END 2022-05-28 18:15 | disposition home or self-care (01) ==
LOC: LBN 18:14
PROVIDERS: PCP Legal Medicine; Visit Provider Nurse Practitioner Gerontology
DX: R68.89 Other general symptoms and signs (principal)
CPT/HCPCS: 80053; 83880; 85025

== ENCOUNTER → 2022-06-05 09:16 | Outpatient (BNVA) | payer MEDICARE, MEDICAID, SELFPAY | PROVIDERS: PCP Legal Medicine; Visit Provider Internal Medicine Cardiovascular Disease | DX: Z45.018 Encounter for adjustment and management of other part of cardiac pacemaker (principal) | CPT/HCPCS: 93280 ==

== ENCOUNTER 2022-06-05 16:25 | Outpatient (REF) | payer MEDICARE, MEDICAID, SELFPAY ==
[2022-06-05 17:47] LABS: Abs Immature Grans 0.17 10^3/uL (0.0-0.06); Absolute Lymphocyte Count 2.49 10^3/uL (1.2-3.4); Absolute Monocyte Count 1.31 10^3/uL (0.1-0.8); Absolute Neutrophil Count 8.92 10^3/uL (1.2-6.7); Basophils % 0.8; Eosinophils % 0.8; HCT 38.2 % (40.0-50.0); HGB 13.1 g/dL (13.5-17.5); Immature Grans % 1.3; MCH 34.4 pg (27.0-33.0); MCHC 34.3 % (32.0-36.0); MCV 100 fL (80-95); Neutrophils % 68.1; Platelet Count 271 10^3/uL (130-400); RBC 3.81 10^6/uL (4.36-5.78); RDW 13.2 % (11.8-14.1); RDW-SD 48.7 fL
[2022-06-05 18:02] LABS: ALT 27 U/L (16-63); AST 24 U/L (15-37); Albumin 3.6 g/dL (3.4-5.0); Alkaline Phosphatase 85 U/L (46-116); Anion Gap 8.8 mmol/L (3-11); BUN 12 mg/dL (7-18); Bilirubin, Total 0.5 mg/dL (0.2-1.0); CO2 26.2 mmol/L (21.0-32.0); CREATININE 0.8 mg/dL (0.70-1.30); Calcium 9.2 mg/dL (8.5-10.1); Chloride 94 mmol/L (98-107); Estimated GFR 94.62 (mL/min/1.73m2); Glucose 116 mg/dL (74-106); NT-proBNP 468 pg/mL (<300); Potassium 4.8 mmol/L (3.5-5.1); Sodium 129 mmol/L (136-145); Total Protein 7.9 g/dL (6.4-8.2)
== END 2022-06-05 16:26 | disposition home or self-care (01) ==
LOC: LBN 16:25
PROVIDERS: PCP Legal Medicine; Visit Provider Nurse Practitioner Gerontology
DX: R68.89 Other general symptoms and signs (principal)
CPT/HCPCS: 80053; 83880; 85025

== ENCOUNTER 2022-06-11 16:44 | Outpatient (REF) | payer MEDICARE, MEDICAID, SELFPAY ==
[2022-06-11 17:03] LABS: Abs Immature Grans 0.12 10^3/uL (0.0-0.06); Absolute Basophil Count 0.06 10^3/uL (0.0-0.2); Absolute Eosinophil Count 0.08 10^3/uL (0.0-0.7); Absolute Lymphocyte Count 1.98 10^3/uL (1.2-3.4); Absolute Neutrophil Count 7.78 10^3/uL (1.2-6.7); Basophils % 0.5; Eosinophils % 0.7; HCT 35.4 % (40.0-50.0); Immature Grans % 1.1; Lymphocytes % 17.3; MCH 33.6 pg (27.0-33.0); MCHC 33.9 % (32.0-36.0); MCV 99 fL (80-95); MPV 10.8 fL (8.0-11.0); Monocytes % 12.3; Neutrophils % 68.1; Platelet Count 253 10^3/uL (130-400); RBC 3.57 10^6/uL (4.36-5.78); RDW 12.8 % (11.8-14.1); RDW-SD 46.3 fL; WBC 11.42 10^3/uL (4.4-10.8)
[2022-06-11 18:13] LABS: ALT 18 U/L (16-63); AST 18 U/L (15-37); Albumin 3.2 g/dL (3.4-5.0); Alkaline Phosphatase 94 U/L (46-116); Anion Gap 8.4 mmol/L (3-11); BUN 11 mg/dL (7-18); Bilirubin, Total 0.4 mg/dL (0.2-1.0); CO2 26.6 mmol/L (21.0-32.0); CREATININE 0.7 mg/dL (0.70-1.30); Calcium 8.8 mg/dL (8.5-10.1); Chloride 94 mmol/L (98-107); Estimated GFR 98.51 (mL/min/1.73m2); Glucose 123 mg/dL (74-106); NT-proBNP 449 pg/mL (<300); Potassium 4.5 mmol/L (3.5-5.1); Sodium 129 mmol/L (136-145); Total Protein 7.3 g/dL (6.4-8.2)
== END 2022-06-11 16:45 | disposition home or self-care (01) ==
LOC: LBN 16:44
PROVIDERS: PCP Legal Medicine; Visit Provider Nurse Practitioner Gerontology
DX: I50.9 Heart failure, unspecified (principal); J44.9 Chronic obstructive pulmonary disease, unspecified; R68.89 Other general symptoms and signs
CPT/HCPCS: 80053; 83880; 85025

== ENCOUNTER 2022-06-18 16:18 | Outpatient (REF) | payer MEDICARE, MEDICAID, SELFPAY ==
[2022-06-18 17:50] LABS: Abs Immature Grans 0.06 10^3/uL (0.0-0.06); Absolute Basophil Count 0.06 10^3/uL (0.0-0.2); Absolute Eosinophil Count 0.15 10^3/uL (0.0-0.7); Absolute Lymphocyte Count 2.62 10^3/uL (1.2-3.4); Absolute Monocyte Count 1.02 10^3/uL (0.1-0.8); Absolute Neutrophil Count 5.16 10^3/uL (1.2-6.7); Basophils % 0.7; Eosinophils % 1.7; HCT 34.7 % (40.0-50.0); HGB 11.9 g/dL (13.5-17.5); Immature Grans % 0.7; Lymphocytes % 28.9; MCH 34.4 pg (27.0-33.0); MCHC 34.3 % (32.0-36.0); MCV 100 fL (80-95); Monocytes % 11.2; Neutrophils % 56.8; Platelet Count 231 10^3/uL (130-400); RBC 3.46 10^6/uL (4.36-5.78); RDW 13.2 % (11.8-14.1); RDW-SD 47.8 fL; WBC 9.07 10^3/uL (4.4-10.8)
[2022-06-18 17:59] LABS: ALT 17 U/L (16-63); AST 16 U/L (15-37); Albumin 2.8 g/dL (3.4-5.0); Alkaline Phosphatase 98 U/L (46-116); Anion Gap 9.8 mmol/L (3-11); BUN 10 mg/dL (7-18); Bilirubin, Total 0.3 mg/dL (0.2-1.0); CO2 25.2 mmol/L (21.0-32.0); CREATININE 0.6 mg/dL (0.70-1.30); Calcium 8.5 mg/dL (8.5-10.1); Chloride 98 mmol/L (98-107); Glucose 120 mg/dL (74-106); NT-proBNP 576 pg/mL (<300); Potassium 4.5 mmol/L (3.5-5.1); Sodium 133 mmol/L (136-145)
== END 2022-06-18 16:19 | disposition home or self-care (01) ==
LOC: LBN 16:18
PROVIDERS: PCP Legal Medicine; Visit Provider Nurse Practitioner Gerontology
DX: I50.9 Heart failure, unspecified (principal); R68.89 Other general symptoms and signs; I10 Essential (primary) hypertension; I25.10 Atherosclerotic heart disease of native coronary artery without angina pectoris; D51.9 Vitamin B12 deficiency anemia, unspecified
CPT/HCPCS: 80053; 83880; 85025

== ENCOUNTER → 2022-07-03 14:44 | Outpatient (BNVA) | payer MEDICARE, MEDICAID, SELFPAY | PROVIDERS: PCP Legal Medicine; Referring Provider Legal Medicine; Visit Provider Internal Medicine Cardiovascular Disease | DX: Z45.010 Encounter for checking and testing of cardiac pacemaker pulse generator [battery] (principal); I44.2 Atrioventricular block, complete | CPT/HCPCS: 93280 ==

== ENCOUNTER 2022-07-25 15:22 | Outpatient (REF) | payer MEDICARE, MEDICAID, SELFPAY ==
[2022-07-25 16:11] LABS: Abs Immature Grans 0.07 10^3/uL (0.0-0.06); Absolute Basophil Count 0.08 10^3/uL (0.0-0.2); Absolute Eosinophil Count 0.32 10^3/uL (0.0-0.7); Absolute Lymphocyte Count 2.14 10^3/uL (1.2-3.4); Absolute Monocyte Count 1.25 10^3/uL (0.1-0.8); Absolute Neutrophil Count 6.37 10^3/uL (1.2-6.7); Basophils % 0.8; Eosinophils % 3.1; HCT 35.8 % (40.0-50.0); Immature Grans % 0.7; Lymphocytes % 20.9; MCH 34.1 pg (27.0-33.0); MCHC 33.5 % (32.0-36.0); MCV 102 fL (80-95); MPV 10.9 fL (8.0-11.0); Monocytes % 12.2; Neutrophils % 62.3; Platelet Count 256 10^3/uL (130-400); RBC 3.52 10^6/uL (4.36-5.78); RDW 13.2 % (11.8-14.1); RDW-SD 48.7 fL; WBC 10.23 10^3/uL (4.4-10.8)
[2022-07-25 16:23] LABS: ALT 13 U/L (16-63); AST 15 U/L (15-37); Albumin 3.1 g/dL (3.4-5.0); Alkaline Phosphatase 88 U/L (46-116); BUN 9 mg/dL (7-18); Bilirubin, Total 0.4 mg/dL (0.2-1.0); CREATININE 0.7 mg/dL (0.70-1.30); Calcium 9.1 mg/dL (8.5-10.1); Chloride 97 mmol/L (98-107); Estimated GFR 98.51 (mL/min/1.73m2); Glucose 108 mg/dL (74-106); Potassium 4.7 mmol/L (3.5-5.1); Sodium 132 mmol/L (136-145); Total Protein 7.4 g/dL (6.4-8.2)
[2022-07-25 16:56] LABS: NT-proBNP 645 pg/mL (<300)
== END 2022-07-25 15:23 | disposition home or self-care (01) ==
LOC: LBN 15:22
PROVIDERS: PCP Legal Medicine; Visit Provider Nurse Practitioner Gerontology
DX: I50.9 Heart failure, unspecified (principal); J15.0 Pneumonia due to Klebsiella pneumoniae; R05.1 Acute cough; R68.89 Other general symptoms and signs; J21.0 Acute bronchiolitis due to respiratory syncytial virus
CPT/HCPCS: 80053; 83880; 85025

== ENCOUNTER 2022-08-06 20:28 | Outpatient (REF) | payer MEDICARE, MEDICAID, SELFPAY ==
[2022-08-06 17:09] LABS: Abs Immature Grans 0.21 10^3/uL (0.0-0.06); Absolute Basophil Count 0.09 10^3/uL (0.0-0.2); Absolute Eosinophil Count 0.35 10^3/uL (0.0-0.7); Absolute Monocyte Count 1.42 10^3/uL (0.1-0.8); Absolute Neutrophil Count 8.32 10^3/uL (1.2-6.7); Basophils % 0.7; Eosinophils % 2.8; HCT 37.1 % (40.0-50.0); HGB 12.4 g/dL (13.5-17.5); Immature Grans % 1.7; Lymphocytes % 16.8; MCH 34.5 pg (27.0-33.0); MCHC 33.4 % (32.0-36.0); MCV 103 fL (80-95); MPV 11.1 fL (8.0-11.0); Monocytes % 11.4; Neutrophils % 66.6; Platelet Count 258 10^3/uL (130-400); RBC 3.59 10^6/uL (4.36-5.78); RDW 13.8 % (11.8-14.1); RDW-SD 52.1 fL; WBC 12.49 10^3/uL (4.4-10.8)
[2022-08-06 18:18] LABS: ALT 17 U/L (16-63); AST 17 U/L (15-37); Albumin 3.1 g/dL (3.4-5.0); Alkaline Phosphatase 91 U/L (46-116); BUN 9 mg/dL (7-18); Bilirubin, Total 0.5 mg/dL (0.2-1.0); CREATININE 0.7 mg/dL (0.70-1.30); Calcium 8.8 mg/dL (8.5-10.1); Chloride 96 mmol/L (98-107); Estimated GFR 98.51 (mL/min/1.73m2); Glucose 100 mg/dL (74-106); NT-proBNP 624 pg/mL (<300); Potassium 4.6 mmol/L (3.5-5.1); Sodium 129 mmol/L (136-145); Total Protein 7.3 g/dL (6.4-8.2)
[2022-08-07 14:50] LABS: TSH (W/Ref FT4) 1.31 uIU/mL (0.36-3.74)
== END 2022-08-06 20:29 | disposition home or self-care (01) ==
LOC: LBN 20:28
PROVIDERS: PCP Legal Medicine; Visit Provider Nurse Practitioner Gerontology
DX: I50.20 Unspecified systolic (congestive) heart failure (principal); J44.9 Chronic obstructive pulmonary disease, unspecified; J21.0 Acute bronchiolitis due to respiratory syncytial virus; I10 Essential (primary) hypertension; I25.10 Atherosclerotic heart disease of native coronary artery without angina pectoris
CPT/HCPCS: 80053; 83880; 84443; 85025

== ENCOUNTER 2022-08-12 19:36 | Outpatient (REF) | payer MEDICARE, MEDICAID, SELFPAY ==
[2022-08-12 19:54] LABS: Abs Immature Grans 0.27 10^3/uL (0.0-0.06); Absolute Basophil Count 0.05 10^3/uL (0.0-0.2); Absolute Lymphocyte Count 1.44 10^3/uL (1.2-3.4); Absolute Monocyte Count 0.41 10^3/uL (0.1-0.8); Basophils % 0.4; HCT 37.7 % (40.0-50.0); HGB 12.6 g/dL (13.5-17.5); Immature Grans % 2.1; Lymphocytes % 11.3; MCH 34.3 pg (27.0-33.0); MCHC 33.4 % (32.0-36.0); MCV 103 fL (80-95); MPV 10.9 fL (8.0-11.0); Monocytes % 3.2; Platelet Count 251 10^3/uL (130-400); RBC 3.67 10^6/uL (4.36-5.78); RDW 13.9 % (11.8-14.1); RDW-SD 52.6 fL; WBC 12.72 10^3/uL (4.4-10.8)
[2022-08-12 19:55] LABS: Absolute Neutrophil Count 10.56 10^3/uL (1.2-6.7)
[2022-08-12 20:41] LABS: ALT 24 U/L (16-63); AST 17 U/L (15-37); Alkaline Phosphatase 85 U/L (46-116); Anion Gap 9.7 mmol/L (3-11); BUN 13 mg/dL (7-18); Bilirubin, Total 0.4 mg/dL (0.2-1.0); CO2 24.3 mmol/L (21.0-32.0); CREATININE 0.7 mg/dL (0.70-1.30); Calcium 8.6 mg/dL (8.5-10.1); Chloride 94 mmol/L (98-107); Estimated GFR 98.51 (mL/min/1.73m2); Glucose 127 mg/dL (74-106); Potassium 4.9 mmol/L (3.5-5.1); Sodium 128 mmol/L (136-145)
== END 2022-08-12 19:37 | disposition home or self-care (01) ==
LOC: LBN 19:36
PROVIDERS: PCP Legal Medicine; Visit Provider Nurse Practitioner Gerontology
DX: E83.42 Hypomagnesemia (principal); E87.1 Hypo-osmolality and hyponatremia
CPT/HCPCS: 80053; 85025

== ENCOUNTER 2022-08-23 14:46 | Outpatient (REF) | payer MEDICARE, MEDICAID, SELFPAY ==
[2022-08-23 17:00] LABS: ALT 37 U/L (16-63); AST 21 U/L (15-37); Albumin 3.1 g/dL (3.4-5.0); Alkaline Phosphatase 84 U/L (46-116); Anion Gap 8.1 mmol/L (3-11); BUN 13 mg/dL (7-18); Bilirubin, Total 0.5 mg/dL (0.2-1.0); CO2 25.9 mmol/L (21.0-32.0); CREATININE 0.8 mg/dL (0.70-1.30); Calcium 8.3 mg/dL (8.5-10.1); Chloride 93 mmol/L (98-107); Estimated GFR 94.62 (mL/min/1.73m2); Glucose 153 mg/dL (74-106); Magnesium 1.7 mg/dL (1.8-2.4); NT-proBNP 512 pg/mL (<300); Potassium 4.3 mmol/L (3.5-5.1); Sodium 127 mmol/L (136-145); Total Protein 6.8 g/dL (6.4-8.2)
== END 2022-08-23 14:47 | disposition home or self-care (01) ==
LOC: LBN 14:46
PROVIDERS: PCP Legal Medicine; Visit Provider Nurse Practitioner Gerontology
DX: J15.0 Pneumonia due to Klebsiella pneumoniae (principal); I50.9 Heart failure, unspecified; G89.4 Chronic pain syndrome; J44.9 Chronic obstructive pulmonary disease, unspecified
CPT/HCPCS: 80053; 83735; 83880

== ENCOUNTER 2022-08-26 20:12 | Outpatient (REF) | payer MEDICARE, MEDICAID, SELFPAY ==
[2022-08-26 21:24] LABS: ALT 31 U/L (16-63); AST 18 U/L (15-37); Albumin 3.2 g/dL (3.4-5.0); Alkaline Phosphatase 93 U/L (46-116); Anion Gap 9.9 mmol/L (3-11); BUN 14 mg/dL (7-18); Bilirubin, Total 0.4 mg/dL (0.2-1.0); CO2 27.1 mmol/L (21.0-32.0); CREATININE 0.8 mg/dL (0.70-1.30); Calcium 8.4 mg/dL (8.5-10.1); Chloride 96 mmol/L (98-107); Estimated GFR 94.62 (mL/min/1.73m2); Glucose 124 mg/dL (74-106); Potassium 4.6 mmol/L (3.5-5.1); Sodium 133 mmol/L (136-145); Total Protein 7.1 g/dL (6.4-8.2)
== END 2022-08-26 20:13 | disposition home or self-care (01) ==
LOC: LBN 20:12
PROVIDERS: PCP Legal Medicine; Visit Provider Nurse Practitioner Gerontology
DX: J06.9 Acute upper respiratory infection, unspecified (principal); I10 Essential (primary) hypertension
CPT/HCPCS: 80053

== ENCOUNTER 2022-08-28 17:25 | Emergency (ER) | payer MEDICARE, MEDICAID, SELFPAY ==
[2022-08-28 17:28] VITALS: BP 148/81; PULSE 74; RESP 18; TEMP 36.8; O2SAT 93
--- NOTE | 2022-08-28 17:30 | DI.RAD_ITS ---
Exam(s) XR CHEST 2V PA LATERAL EXAM: XR CHEST 2V PA LATERAL CLINICAL HISTORY: SOB TECHNIQUE: 2D digital imaging was performed. COMPARISON: CT CT CHEST PE ABD PELVIS W from 03/12/2022 CR XR CHEST 2V PA LATERAL from 04/09/2022 FINDINGS: HEART: Pacemaker. Heart mildly enlarged. Aorta: Not dilated. PULMONARY VASCULATURE: Normal. LUNGS: Difficult to evaluate due to pleural calcification and left pleural collection as well as unde r penetration. Basilar infiltrates not excluded PLEURAL SPACE: Chronic right pleural calcifications. Loculated left pleural fluid as seen on prior e xam. BONE:Unremarkable for age. IMPRESSION: Question of basilar infiltrates. Chronic left loculated pleural effusion and pleural calcifications. DATA REPOSITORY: RADIATION DOSE DELIVERED:
--- NOTE | 2022-08-28 17:41 | ED.GENADUL_ITS ---
Discharge Plan Disposition Patient Disposition: Nursing Home Facility(SNF) Condition: Stable Discharge Details Clinical Impression: COPD exacerbation Primary Care Provider: Monalisa Dong ED Provider: Whitney Aguilar Meds and New Rx's Prescriptions: Continued fentanyl 12 mcg/hr patch 72 hour 1 patch transdermal Q72H albuterol sulfate 90 mcg/actuation aerosol powdr breath activated 2 inh inhalation TID Rx Instructions: *and* q4h PRN calcium carbonate 215 mg calcium (500 mg) tablet,chewable 1,000 mg PO Q6H PRN fluticasone propionate 50 mcg/actuation spray,suspension 1 spray intranasal BID Rx Instructions: administer into each nostril sertraline 25 mg tablet 25 mg PO DAILY Ultra B-100 Complex Tablet Extended Release 1 tab PO DAILY pantoprazole 40 mg tablet,delayed release (DR/EC) 40 mg PO DAILY polyethylene glycol 3350 [Miralax] 17 gram powder in packet 17 g PO DAILY PRN sennosides-docusate sodium [Senexon-S] 8.6-50 mg tablet 2 tab-cap PO DAILY acetaminophen [Tylenol Extra Strength] 500 mg tablet 1,000 mg PO TID PRN metoprolol succinate 200 mg tablet extended release 24 hr 200 mg PO DAILY Rx Instructions: Hold for HR < 60 memantine 5 mg tablet 5 mg PO BID Creon 12,000-38,000 -60,000 unit capsule,delayed release(DR/EC) 1 cap PO TID Qty: 90 3RF Rx Instructions: administer with meals and/or snacks melatonin 3 mg capsule 3 mg PO HS beer PO Rx Instructions: may have 2 beers by mouth daily 12 or 16oz,only 1 beer if 24oz container colestipol 1 gram tablet 2 g PO BID sucralfate 1 gram tablet 1 g PO BID Rx Instructions: GI BLEED spironolactone 25 mg tablet 100 mg PO DAILY Patient Comments: 06/05/22 on med list from [facility] ipratropium-albuterol 0.5 mg-3 mg(2.5 mg base)/3 mL Solution For Nebulization 3 ml INHALATION BID PRN prednisone 10 mg Tablet 10 mg PO DAILY Rx Instructions: take for 7 days- started 08/24/22 cetirizine 10 mg Tablet 10 mg PO DAILY dextromethorphan-guaifenesin [Tussin DM] 10-100 mg/5 mL Liquid 10 ml PO Q4H PRN magnesium gluconate 500 mg Tablet 500 mg PO DAILY Trelepennie Ellipta 200-62.5-25 mcg Blister With Device 1 inh INHALATION DAILY Discharge Instructions Instructions: COPD (Chronic Obstructive Pulmonary Disease) (ED) Additional Instructions: Your oxygen has remained 93% or above during your stay here. Chest x-ray looks similar to your last. Please continue to use your albuterol and nebulizer treatments as previously prescribed. Follow up with primary care provider in 3-5 days. Return to ED sooner if any worsening or concerns. Increase oral fluids. Referrals: Monalisa Dong [Primary Care Provider] - 3 days Medical Decision Making 71-year-old male with a past medical history of hypertension COPD, coronary artery disease, pacemaker and remote history of left lower lobe pneumonia presents to the ER from the [facility] with a chief complaint of hypoxia and shortness of breath. Patient was found to have a O2 sat of 88% on room air was given a albuterol nebulizer by EMS and his current O2 sat is 94% on room air. He denies any pain. He just recently finished antibiotics for pneumonia and is currently on prednisone. 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 He does have some scattered wheezes expiratory throughout. Diminished in left lower lobe he reports he has done multiple albuterol inhalers and treatments today. CBC CMP proBNP and chest x-ray ordered. CBC shows white blood cell count 11.66 hemoglobin 12 hematocrit 37 this is improved from previous blood draw. X-ray shows similar findings to comparison study. Patient has remained O2 sat of 94% throughout the remainder of his stay. Patient transported back to the [facility] rehab facility via EMS. This text was generated using [employer] system, please disregard any oddities of phrase or misspellings. Medical Records Medical records reviewed: Yes I reviewed the patient's medical records. Imaging Data Radiologic Study: Imaging: X-Ray Radiologist's impression: TECHNIQUE: Imaging protocol: Radiologic exam of the chest. Views: 2 views. COMPARISON: CR XR CHEST 2V PA LATERAL 04/09/2022 9:48 AM FINDINGS: Tubes, catheters and devices: Left subclavian transvenous pacemaker in place. Lungs: Patchy opacities within the right lower lobe, likely areas of atelectasis and pneumonitis. Pleural spaces: Left basilar opacity, likely pleural fluid and atelectasis/pneumonia, similar to comparison study. Calcification of the right lateral pleura as before. Heart/Mediastinum: Normal. Bones/joints: No acute abno rmality. IMPRESSION: 1. Left basilar opacity, likely pleural fluid and atelectasis/pneumonia, similar to comparison study. 2. Patchy opacities within the right lower lobe, likely areas of atelectasis and pneumonitis. Thank you for allowing us to participate in the care of your patient. Dictated and Authenticated by: Zia Christopher MD Lab Data Lab results reviewed: Yes I reviewed the patient's lab results. Labs: Laboratory Tests Range/Units 08/28/22 08/28/22 08/28/22 17:48 17:48 18:37 WBC (4.4-10.8) 10^3/uL 11.66 H RBC (4.36-5.78) 10^6/uL 3.61 L Hgb (13.5-17.5) g/dL 12.4 L Hct (40.0-50.0) % 37.6 L MCV (80-95) fL 104 H MCH (27.0-33.0) pg 34.3 H MCHC (32.0-36.0) % 33.0 RDW (11.8-14.1) % 13.0 Plt Count (130-400) 10^3/uL 190 MPV (8.0-11.0) fL 10.3 Immature Gran % 0.9 Neutrophils % 76.2 Lymphocytes % 13.7 Monocytes % 8.6 Eosinophils % 0.3 Basophils % 0.3 Nucleated RBC % (0.0-0.3) % 0.0 Absolute Neutrophils (1.2-6.7) 10^3/uL 8.88 H Absolute Lymphocytes (1.2-3.4) 10^3/uL 1.60 Absolute Monocytes (0.1-0.8) 10^3/uL 1.00 H Absolute Eosinophils (0.0-0.7) 10^3/uL 0.03 Absolute Basophils (0.0-0.2) 10^3/uL 0.03 Sodium Cancelled 126 L Potassium Cancelled 4.7 Chloride Cancelled 91 L Carbon Dioxide Cancelled 26.8 Anion Gap Cancelled 8.2 BUN Cancelled 10 Creatinine Cancelled 0.6 L Est GFR (CKD-EPI 2020) Cancelled 103.20 Glucose Cancelled 104 Calcium Cancelled 8.3 L Total Bilirubin Cancelled 0.3 AST Cancelled 19 ALT Cancelled 32 Alkaline Phosphatase Cancelled 82 NT-Pro-B Natriuret Pep Cancelled 785 H Total Protein Cancelled 7.6 Albumin Cancelled 3.0 L HPI General Mode of arrival: EMS . Date/Time Provider Initiated Documentation: 08/28/22 17:32 . Limitations to Documentation: no limitations . Information obtained by: patient, EMS, RN notes reviewed and old records reviewed . HPI Narrative: 71-year-old male with a past medical history of hypertension COPD, coronary artery disease, pacemaker and remote history of left lower lobe pneumonia presents to the ER from the [facility] with a chief complaint of hypoxia and shortness of breath. Patient was found to have a O2 sat of 88% on room air was given a albuterol nebulizer by EMS and his current O2 sat is 94% on room air. He denies any pain. He just recently finished antibiotics for pneumonia and is currently on prednisone. 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 He does have some scattered wheezes expiratory throughout. Diminished in left lower lobe he reports he has done multiple albuterol inhalers and treatments today. Related Data Home Medications Medication Instructions Recorded Confirmed acetaminophen 500 mg tablet 1,000 mg PO TID PRN 03/29/21 08/28/22 (Tylenol Extra Strength) albuterol sulfate 90 mcg/actuation 2 inh inhalation TID 03/29/21 08/28/22 breath activated powder inhaler calcium carbonate 215 mg calcium 1,000 mg PO Q6H PRN 03/29/21 08/28/22 (500 mg) chewable tablet fluticasone propionate 50 1 spray intranasal BID 03/29/21 08/28/22 mcg/actuation nasal spray,suspension pantoprazole 40 mg tablet,delayed 40 mg PO DAILY 03/29/21 08/28/22 release polyethylene glycol 3350 17 gram 17 g PO DAILY PRN 03/29/21 08/28/22 oral powder packet (Miralax) sennosides 8.6 mg-docusate sodium 2 tab-cap PO DAILY 03/29/21 08/28/22 50 mg tablet (Senexon-S) sertraline 25 mg tablet 25 mg PO DAILY 03/29/21 08/28/22 vitamin B complex (Ultra B-100 1 tab PO DAILY 03/29/21 08/28/22 Complex ER tablet,extended release) metoprolol succinate 200 mg 200 mg PO DAILY 05/02/21 08/28/22 tablet,extended release 24 hr melatonin 3 mg capsule 3 mg PO HS 05/10/21 08/28/22 beer PO 10/18/21 07/03/22 colestipol 1 gram tablet 2 g PO BID 12/06/21 08/28/22 jbhzjj-vnqpnumy-vuemifo 1 cap PO TID #90 caps 12/06/21 08/28/22 12,000-38,000-60,000 unit capsule,delayed rel (Creon) sucralfate 1 gram tablet 1 g PO BID 12/06/21 08/28/22 ipratropium 0.5 mg-albuterol 3 mg 3 ml inhalation BID PRN 03/12/22 08/28/22 (2.5 mg base)/3 mL nebulization soln fentanyl 12 mcg/hr transdermal 1 patch transdermal Q72H 04/29/22 08/28/22 patch memantine 5 mg tablet 5 mg PO BID 06/05/22 08/28/22 spironolactone 25 mg tablet 100 mg PO DAILY 06/05/22 08/28/22 cetirizine 10 mg tablet 10 mg PO DAILY 08/28/22 08/28/22 dextromethorphan-guaifenesin 10 10 ml PO Q4H PRN 08/28/22 08/28/22 mg-100 mg/5 mL oral liquid (Tussin DM) fluticasone fur. 200 mcg-umeclid 1 inh inhalation DAILY 08/28/22 08/28/22 62.5 mcg-vilant 25 mcg inhalat.powder (Trelegy Ellipta) magnesium gluconate 500 mg tablet 500 mg PO DAILY 08/28/22 08/28/22 prednisone 10 mg tablet 10 mg PO DAILY 08/28/22 08/28/22 Previous Rx's Medication Instructions Recorded ckxere-ilwitase-qmfjqzr 1 cap PO TID #90 caps 12/06/21 12,000-38,000-60,000 unit capsule,delayed rel (Creon) Allergies Allergy/AdvReac Type Severity Reaction Status Date / Time No Known Allergies Allergy Verified 08/28/22 17:32 General Stated Complaint: RespSymp INDY: 4 Review of Systems All systems reviewed & are unremarkable except as noted in HPI and below Cardiovascular Cardiovascular: Reports dyspnea Respiratory Respiratory: Reports chest congestion, Reports cough and Reports dyspnea PFSH All Active Problems (Updated 08/28/22 @ 19:05 by Whitney Aguilar NP) COPD exacerbation (Acute) Nasal obstruction (Acute) External nasal lesion (Acute) Hypertension (Chronic) Bloating (Acute) Heme positive stool (Acute) Infected sebaceous cyst of skin (Acute) Trapped lung (Acute) Sacroiliitis (Acute) COPD (chronic obstructive pulmonary disease) (Chronic) Depression (Chronic) Lymphedema (Acute) HTN (hypertension) with goal to be determined (Chronic) Obesity (Chronic) DNR (do not resuscitate) (Acute) Presence of cardiac pacemaker (Chronic) [employer] PPM MRI model L111 Serial # [id number] placed dual chamber 04/30/2017 for CHB at [facility]. 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 Most likely this is inflammatory tissue and not actually fluid. pt has had multiple taps. He was on a prolonged course of IV abx and has failed to resolve. This is a sequelae of this pericardial tamponade following disruption of his RA lead from pacemaker insertion. Hyponatremia, hypo-osmolarity, or hypo-osmolar hyponatremia Recurrent left pleural effusion Surgical History History of permanent cardiac pacemaker placement with subsequent repositioning S/P laparoscopic cholecystectomy Social History Smoking/Tobacco Use Status: Never Smoking risk assessment performed?: Yes Alcohol Intake: current Alcohol Intake frequency: 0-2 drinks per day Alcohol type: beer Housing: assisted living facility Pets and animals: No Do you feel safe at home: Yes Do you feel safe in your relationship?: Yes Exam Narrative Exam Narrative: Constitutional: Alert and oriented x3. Appears stated age. Appears chronically ill. Normal body habitus. Head: Normocephalic, no trauma. Eyes: Pupils PERRL, Red reflex noted, EOM's intact. Eyelids symmetrical without lesions, discharge, or swelling. ENT: Bilateral TM's WNL, External ear normal to inspection, no mastoid TTP, swelling, or erythema, Nasal turbinates WNL, no nasal discharge. Normal dentition, Posterior pharynx WNL, no exudate. Chest: RRR, Normal S1, S2, distal pulses intact. Resp: Rhonchi noted, diminished left lower lobe expiratory scattered wheezes. Abdomen: Soft, non-distended, Normoactive bowel sounds all 4 quads. Musculoskeletal: Unable to assess gait. 5/5 strength to all four extremities. Skin: No suspicious rashes or lesions. Capillary refill less than 2 sec. Neurologic: Cranial nerves II-XII intact. Alert and oriented x 3. Motor: No deficits noted. Sensory: Intact bilaterally all 4 extremities. Reflexes: DTR's intact bilaterally.. Hematologic/Lymphatic: No ecchymosis, no lymphadenopathy. Course Vital Signs Vital signs: Vital Signs Temperature 36.8 C 08/28/22 17:28 Pulse 74 08/28/22 17:28 Respiratory Rate 18 08/28/22 17:28 Blood Pressure 148/81 H 08/28/22 17:28 Pulse Oximetry 93 08/28/22 17:28 Temperature 36.8 C 08/28/22 17:28 Temperature Source Oral 08/28/22 17:28 Pulse 74 08/28/22 17:28 Respiratory Rate 18 08/28/22 17:28 Blood Pressure 148/81 H 08/28/22 17:28 Blood Pressure Position Sitting 08/28/22 17:28 Pulse Oximetry 93 08/28/22 17:28 Oxygen Delivery Method Room Air 08/28/22 17:28 Oxygen Flow Rate 0 08/28/22 17:28 Pain Level 0 08/28/22 17:28
[2022-08-28 17:59] LABS: Absolute Neutrophil Count 8.88 10^3/uL (1.2-6.7); Basophils % 0.3; Eosinophils % 0.3; HCT 37.6 % (40.0-50.0); HGB 12.4 g/dL (13.5-17.5); Immature Grans % 0.9; Lymphocytes % 13.7; MCH 34.3 pg (27.0-33.0); MCV 104 fL (80-95); MPV 10.3 fL (8.0-11.0); Monocytes % 8.6; Neutrophils % 76.2; Platelet Count 190 10^3/uL (130-400); RBC 3.61 10^6/uL (4.36-5.78); RDW-SD 50.4 fL; WBC 11.66 10^3/uL (4.4-10.8)
[2022-08-28 18:01] LABS: Absolute Basophil Count 0.03 10^3/uL (0.0-0.2); Absolute Eosinophil Count 0.03 10^3/uL (0.0-0.7)
--- NOTE | 2022-08-28 18:34 | DI.VRAD_ITS ---
PROCEDURE INFORMATION: Exam: XR Chest Exam date and time: 08/28/2022 5:59 PM Age: 71 years old Clinical indication: Shortness of breath TECHNIQUE: Imaging protocol: Radiologic exam of the chest. Views: 2 views. COMPARISON: CR XR CHEST 2V PA LATERAL 04/09/2022 9:48 AM FINDINGS: Tubes, catheters and devices: Left subclavian transvenous pacemaker in place. Lungs: Patchy opacities within the right lower lobe, likely areas of atelectasis and pneumonitis. Pleural spaces: Left basilar opacity, likely pleural fluid and atelectasis/pneumonia, similar to comparison study. Calcification of the right lateral pleura as before. Heart/Mediastinum: Normal. Bones/joints: No acute abnormality. IMPRESSION: 1. Left basilar opacity, likely pleural fluid and atelectasis/pneumonia, similar to comparison study. 2. Patchy opacities within the right lower lobe, likely areas of atelectasis and pneumonitis. Dictated and Authenticated by: Zia Christopher MD. Ordering:FROILAN Olson MD
[2022-08-28 19:03] LABS: ALT 32 U/L (16-63); AST 19 U/L (15-37); Alkaline Phosphatase 82 U/L (46-116); Anion Gap 8.2 mmol/L (3-11); BUN 10 mg/dL (7-18); Bilirubin, Total 0.3 mg/dL (0.2-1.0); CO2 26.8 mmol/L (21.0-32.0); CREATININE 0.6 mg/dL (0.70-1.30); Calcium 8.3 mg/dL (8.5-10.1); Chloride 91 mmol/L (98-107); Glucose 104 mg/dL (74-106); NT-proBNP 785 pg/mL (<300); Potassium 4.7 mmol/L (3.5-5.1); Sodium 126 mmol/L (136-145); Total Protein 7.6 g/dL (6.4-8.2)
== END 2022-08-28 20:31 | disposition skilled nursing facility (03) ==
PROVIDERS: Emergency Provider Registered Nurse Emergency; PCP Legal Medicine
DX: J44.1 Chronic obstructive pulmonary disease with (acute) exacerbation (principal); I25.10 Atherosclerotic heart disease of native coronary artery without angina pectoris; I10 Essential (primary) hypertension
CPT/HCPCS: 80053; 99283; 71046; 83880; 85025

== ENCOUNTER 2022-09-02 16:06 | Outpatient (REF) | payer MEDICARE, MEDICAID, SELFPAY ==
[2022-09-02 16:08] LABS: Abs Immature Grans 0.12 10^3/uL (0.0-0.06); Absolute Basophil Count 0.06 10^3/uL (0.0-0.2); Absolute Eosinophil Count 0.22 10^3/uL (0.0-0.7); Absolute Lymphocyte Count 2.33 10^3/uL (1.2-3.4); Absolute Monocyte Count 1.08 10^3/uL (0.1-0.8); Absolute Neutrophil Count 6.96 10^3/uL (1.2-6.7); Basophils % 0.6; HGB 12.3 g/dL (13.5-17.5); Immature Grans % 1.1; Lymphocytes % 21.6; MCH 36.2 pg (27.0-33.0); MCHC 35.1 % (32.0-36.0); MCV 103 fL (80-95); Neutrophils % 64.7; Platelet Count 252 10^3/uL (130-400); RDW 12.6 % (11.8-14.1); RDW-SD 47.8 fL; WBC 10.77 10^3/uL (4.4-10.8)
[2022-09-02 16:15] LABS: ALT 18 U/L (16-63); AST 16 U/L (15-37); Albumin 2.9 g/dL (3.4-5.0); Alkaline Phosphatase 75 U/L (46-116); Anion Gap 4.3 mmol/L (3-11); BUN 10 mg/dL (7-18); Bilirubin, Total 0.7 mg/dL (0.2-1.0); CO2 30.7 mmol/L (21.0-32.0); CREATININE 0.6 mg/dL (0.70-1.30); Calcium 8.6 mg/dL (8.5-10.1); Chloride 92 mmol/L (98-107); Glucose 101 mg/dL (74-106); NT-proBNP 701 pg/mL (<300); Potassium 4.5 mmol/L (3.5-5.1); Sodium 127 mmol/L (136-145); Total Protein 6.8 g/dL (6.4-8.2)
== END 2022-09-02 16:07 | disposition home or self-care (01) ==
LOC: LBN 16:06
PROVIDERS: PCP Legal Medicine; Visit Provider Nurse Practitioner Gerontology
DX: J44.9 Chronic obstructive pulmonary disease, unspecified (principal); J98.4 Other disorders of lung
CPT/HCPCS: 80053; 83880; 85025

== ENCOUNTER 2022-09-16 02:42 | Outpatient (CLI) | payer MEDICARE, MEDICAID, SELFPAY ==
--- NOTE | 2022-09-16 | DI.CT_ITS ---
Exam(s) CT CHEST/ABD/PEL WO EXAM: CT CHEST/ABD/PEL WO CLINICAL HISTORY: SOB, STERNUM PAIN, POSSIBLE ASCITES, HX ETOH. TECHNIQUE: Imaging Protocol: Axial computed tomography images with coronal and sagittal reformatted images were created and reviewed CONTRAST MATERIAL: Intravenous: Omnipaque 350 Contrast volume:100 ml Oral:no COMPARISON: CT CT CHEST PE ABD PELVIS W from 03/12/2022 CR,XR XR CHEST 2V PA LATERAL from 08/28/2022 FINDINGS: CHEST: Pacemaker. Tracheobronchial tree: Patent where visualized. Pulmonary parenchyma: No consolidation or dominant measurable mass. Mild scarring. No infiltrates. Pleura: No effusion or pneumothorax. Calcified pleura on the right. Chronic pleural collection on the left. Lymph nodes: Within normal limits. Aorta: Thoracic portion non-dilated. Heart: Coronary artery calcifications. Mitral annulus heavily calcified. Bones: Degenerative changes in the spine. Old right clavicle fracture. No acute fracture. Sternum appears intact. No lytic or blastic lesions.No thoracic compression fractures. Soft tissues: Bilateral gynecomastia. ABDOMEN: Motion artifact. Liver: Normal density. No measurable mass. Gallbladder and biliary tract: Status post cholecystectomy. No radiodense calculus or dilation. Pancreas: Normal density, no abnormal calcifications or inflammatory process. Spleen: Normal. Kidneys: Normal size, contour and axis. No radiodense stones or obstructive uropathy. No suspicious m asses seen. Adrenal glands: No masses seen. Aorta: Abdominal portion non-dilated. Atherosclerotic changes. Lymph nodes: Within normal limits. Soft tissues: Stable appearance of left posterior soft tissue collection the upper sacral region. St able fluid collections seen in the left upper buttock could represent hematomas. PELVIS: Bladder: Nearly empty. Not well evaluated. Bowel: No obstruction. The improvement in the appearance of wall thickening of the rectum. Scattere d diverticulosis. Normal quantity of stool. Appendix normal. Peritoneal cavity: No ascites, collection or mesenteric inflammatory response. Bones: Degenerative changes. Scoliosis in the lumbar spine. Reproductive organs: Within normal limits. IMPRESSION: Stable findings of right pleural calcification loculated left pleural fluid. No acute abnormality in the chest, abdomen or pelvis.. No evidence of ascites. RADIATION DOSE DELIVERED: 1,847.85mGy.cm Total DLP DATA REPOSITORY: All CT scans at this facility are submitted to the National Radiology Data Registry (NRDR) Dose Index Registry (DIR) with the [employer] (ACR). RADIATION OPTIMIZATION: All CT scans at this facility use at least one of these dose optimization te chniques: automated exposure control; mA and/or kV adjustment per patient size (includes targeted exa ms where dose is matched to clinical indication); or iterative reconstruction.
== END 2022-09-16 03:02 ==
LOC: DI 02:42
PROVIDERS: PCP Legal Medicine; Visit Provider Nurse Practitioner Gerontology
DX: J94.8 Other specified pleural conditions (principal); R06.02 Shortness of breath
CPT/HCPCS: 71250; 74176

== ENCOUNTER 2022-09-18 16:32 | Outpatient (REF) | payer MEDICARE, MEDICAID, SELFPAY ==
[2022-09-18 17:31] LABS: Magnesium 1.8 mg/dL (1.8-2.4)
[2022-09-19 13:18] LABS: ALT 15 U/L (16-63); AST 16 U/L (15-37); Albumin 2.9 g/dL (3.4-5.0); Alkaline Phosphatase 74 U/L (46-116); Anion Gap 10.2 mmol/L (3-11); BUN 9 mg/dL (7-18); Bilirubin, Total 0.3 mg/dL (0.2-1.0); CO2 25.8 mmol/L (21.0-32.0); CREATININE 0.6 mg/dL (0.70-1.30); Calcium 8.4 mg/dL (8.5-10.1); Chloride 98 mmol/L (98-107); Glucose 116 mg/dL (74-106); Potassium 4.3 mmol/L (3.5-5.1); Sodium 134 mmol/L (136-145); Total Protein 6.7 g/dL (6.4-8.2)
== END 2022-09-18 16:33 | disposition home or self-care (01) ==
LOC: LBN 16:32
PROVIDERS: PCP Legal Medicine; Visit Provider Nurse Practitioner Gerontology
DX: E83.42 Hypomagnesemia (principal); R68.89 Other general symptoms and signs
CPT/HCPCS: 80053; 83735

== ENCOUNTER → 2022-10-02 11:01 | Outpatient (BNVA) | payer MEDICARE, MEDICAID, SELFPAY | PROVIDERS: PCP Legal Medicine; Referring Provider Legal Medicine; Visit Provider Internal Medicine Cardiovascular Disease | DX: Z45.010 Encounter for checking and testing of cardiac pacemaker pulse generator [battery] (principal) | CPT/HCPCS: 93280 ==

== ENCOUNTER → 2022-10-07 13:54 | Outpatient (BNVA) | payer MEDICARE, MEDICAID, SELFPAY | PROVIDERS: PCP Legal Medicine; Referring Provider Nurse Practitioner Gerontology; Visit Provider Surgery | DX: L72.3 Sebaceous cyst (principal) | CPT/HCPCS: 99212; 99213 ==

== ENCOUNTER 2022-10-09 12:48 | Outpatient (REF) | payer MEDICARE, MEDICAID, SELFPAY ==
[2022-10-09 13:50] LABS: ALT 13 U/L (16-63); AST 17 U/L (15-37); Albumin 3.1 g/dL (3.4-5.0); Alkaline Phosphatase 87 U/L (46-116); Anion Gap 11.5 mmol/L (3-11); BUN 7 mg/dL (7-18); Bilirubin, Total 0.3 mg/dL (0.2-1.0); CO2 25.5 mmol/L (21.0-32.0); CREATININE 0.6 mg/dL (0.70-1.30); Calcium 8.8 mg/dL (8.5-10.1); Chloride 101 mmol/L (98-107); Estimated GFR 102.56 (mL/min/1.73m2); Glucose 92 mg/dL (74-106); NT-proBNP 635 pg/mL (<300); Potassium 4.7 mmol/L (3.5-5.1); Sodium 138 mmol/L (136-145); Total Protein 7.4 g/dL (6.4-8.2)
== END 2022-10-09 12:49 | disposition home or self-care (01) ==
LOC: LBN 12:48
PROVIDERS: PCP Legal Medicine; Visit Provider Nurse Practitioner Gerontology
DX: R06.02 Shortness of breath (principal); I10 Essential (primary) hypertension; I50.9 Heart failure, unspecified; R79.89 Other specified abnormal findings of blood chemistry
CPT/HCPCS: 80053; 83880

== ENCOUNTER → 2022-10-16 10:01 | Outpatient (BNVA) | payer MEDICARE, MEDICAID, SELFPAY | PROVIDERS: PCP Legal Medicine; Referring Provider Legal Medicine; Visit Provider Physician Assistant | DX: I44.2 Atrioventricular block, complete (principal); Z45.018 Encounter for adjustment and management of other part of cardiac pacemaker | CPT/HCPCS: 93280; 99212 ==

== ENCOUNTER 2022-12-11 17:56 | Outpatient (REF) | payer MEDICARE, MEDICAID, SELFPAY ==
[2022-12-11 18:49] LABS: Abs Immature Grans 0.08 10^3/uL (0.0-0.06); Absolute Lymphocyte Count 2.13 10^3/uL (1.2-3.4); Absolute Neutrophil Count 11.48 10^3/uL (1.2-6.7); Basophils % 0.3; Eosinophils % 0.1; HCT 38.2 % (40.0-50.0); HGB 12.3 g/dL (13.5-17.5); Immature Grans % 0.5; Lymphocytes % 13.8; MCH 32.4 pg (27.0-33.0); MCHC 32.2 % (32.0-36.0); MCV 101 fL (80-95); MPV 12.3 fL (8.0-11.0); Monocytes % 10.8; Neutrophils % 74.5; Platelet Count 198 10^3/uL (130-400); RDW 11.9 % (11.8-14.1); RDW-SD 43.6 fL; WBC 15.41 10^3/uL (4.4-10.8)
[2022-12-11 18:50] LABS: Absolute Basophil Count 0.05 10^3/uL (0.0-0.2); Absolute Eosinophil Count 0.02 10^3/uL (0.0-0.7); Absolute Monocyte Count 1.66 10^3/uL (0.1-0.8)
[2022-12-11 19:15] LABS: Diff Comment Diff Reviewed
[2022-12-11 19:16] LABS: RBC Morphology Normal
[2022-12-11 19:27] LABS: ALT 12 U/L (16-63); AST 16 U/L (15-37); Albumin 3.2 g/dL (3.4-5.0); Alkaline Phosphatase 103 U/L (46-116); Anion Gap 7.6 mmol/L (3-11); BUN 15 mg/dL (7-18); Bilirubin, Total 0.3 mg/dL (0.2-1.0); CO2 26.4 mmol/L (21.0-32.0); CREATININE 0.8 mg/dL (0.70-1.30); Calcium 9.2 mg/dL (8.5-10.1); Chloride 97 mmol/L (98-107); Estimated GFR 94.03 (mL/min/1.73m2); Glucose 87 mg/dL (74-106); Magnesium 2.2 mg/dL (1.8-2.4); NT-proBNP 635 pg/mL (<300); Potassium 4.7 mmol/L (3.5-5.1); Sodium 131 mmol/L (136-145); TSH (W/Ref FT4) 1.59 uIU/mL (0.36-3.74)
== END 2022-12-11 17:57 | disposition home or self-care (01) ==
LOC: LBN 17:56
PROVIDERS: PCP Legal Medicine; Visit Provider Nurse Practitioner Gerontology
DX: R68.89 Other general symptoms and signs (principal); J21.0 Acute bronchiolitis due to respiratory syncytial virus; J44.9 Chronic obstructive pulmonary disease, unspecified; R05.1 Acute cough; E83.42 Hypomagnesemia
CPT/HCPCS: 80053; 83735; 83880; 84443; 85025

== ENCOUNTER → 2022-12-18 08:19 | Outpatient (BNVA) | payer MEDICARE, MEDICAID, SELFPAY | PROVIDERS: PCP Legal Medicine; Referring Provider Legal Medicine; Visit Provider Physician Assistant | DX: Z45.018 Encounter for adjustment and management of other part of cardiac pacemaker (principal); I44.2 Atrioventricular block, complete; R06.02 Shortness of breath | CPT/HCPCS: 93280 ==

== ENCOUNTER 2022-12-24 18:35 | Outpatient (REF) | payer MEDICARE, MEDICAID, SELFPAY ==
[2022-12-24 21:11] LABS: Abs Immature Grans 0.09 10^3/uL (0.0-0.06); Absolute Basophil Count 0.09 10^3/uL (0.0-0.2); Absolute Eosinophil Count 0.31 10^3/uL (0.0-0.7); Absolute Monocyte Count 1.49 10^3/uL (0.1-0.8); Basophils % 0.7; Eosinophils % 2.4; HCT 38.3 % (40.0-50.0); HGB 12.7 g/dL (13.5-17.5); Immature Grans % 0.7; Lymphocytes % 19.1; MCHC 33.2 % (32.0-36.0); MCV 100 fL (80-95); MPV 11.3 fL (8.0-11.0); Monocytes % 11.4; Neutrophils % 65.7; Platelet Count 226 10^3/uL (130-400); RBC 3.85 10^6/uL (4.36-5.78); RDW 12.6 % (11.8-14.1); RDW-SD 46.2 fL; WBC 13.08 10^3/uL (4.4-10.8)
[2022-12-24 21:13] LABS: Absolute Neutrophil Count 8.59 10^3/uL (1.2-6.7)
[2022-12-24 21:24] LABS: ALT 25 U/L (16-63); AST 21 U/L (15-37); Albumin 3.1 g/dL (3.4-5.0); Alkaline Phosphatase 91 U/L (46-116); Anion Gap 8.5 mmol/L (3-11); BUN 11 mg/dL (7-18); Bilirubin, Total 0.4 mg/dL (0.2-1.0); CO2 25.5 mmol/L (21.0-32.0); CREATININE 0.8 mg/dL (0.70-1.30); Calcium 8.8 mg/dL (8.5-10.1); Chloride 98 mmol/L (98-107); Estimated GFR 94.03 (mL/min/1.73m2); Glucose 104 mg/dL (74-106); Potassium 5.1 mmol/L (3.5-5.1); Sodium 132 mmol/L (136-145); Total Protein 7.3 g/dL (6.4-8.2)
[2022-12-25 11:01] LABS: NT-proBNP 476 pg/mL (<300)
== END 2022-12-24 18:36 | disposition home or self-care (01) ==
LOC: LBN 18:35
PROVIDERS: PCP Legal Medicine; Visit Provider Nurse Practitioner Gerontology
DX: J44.9 Chronic obstructive pulmonary disease, unspecified (principal); R68.89 Other general symptoms and signs; R06.02 Shortness of breath
CPT/HCPCS: 80053; 83880; 85025

== ENCOUNTER 2023-01-08 19:38 | Outpatient (REF) | payer MEDICARE, MEDICAID, SELFPAY ==
[2023-01-08 18:36] LABS: Absolute Basophil Count 0.11 10^3/uL (0.0-0.2); Absolute Lymphocyte Count 2.28 10^3/uL (1.2-3.4); Absolute Monocyte Count 1.35 10^3/uL (0.1-0.8); Absolute Neutrophil Count 6.03 10^3/uL (1.2-6.7); Basophils % 1.1; Eosinophils % 4.8; HCT 38.3 % (40.0-50.0); HGB 12.6 g/dL (13.5-17.5); MCH 32.9 pg (27.0-33.0); MCHC 32.9 % (32.0-36.0); MCV 100 fL (80-95); MPV 10.9 fL (8.0-11.0); Neutrophils % 58.1; Platelet Count 289 10^3/uL (130-400); RBC 3.83 10^6/uL (4.36-5.78); RDW 13.1 % (11.8-14.1); RDW-SD 48.1 fL; WBC 10.37 10^3/uL (4.4-10.8)
[2023-01-08 18:40] LABS: ESR 103 mm/hr (0-20)
[2023-01-08 19:48] LABS: ALT 19 U/L (16-63); AST 23 U/L (15-37); Albumin 3.2 g/dL (3.4-5.0); Alkaline Phosphatase 100 U/L (46-116); Anion Gap 9.4 mmol/L (3-11); BUN 10 mg/dL (7-18); Bilirubin, Total 0.3 mg/dL (0.2-1.0); C-Reactive Protein 1.05 mg/dL (0.0-0.3); CO2 25.6 mmol/L (21.0-32.0); CREATININE 0.7 mg/dL (0.70-1.30); Calcium 9.1 mg/dL (8.5-10.1); Chloride 99 mmol/L (98-107); Glucose 98 mg/dL (74-106); Magnesium 2.1 mg/dL (1.8-2.4); NT-proBNP 437 pg/mL (<300); Potassium 4.9 mmol/L (3.5-5.1); Sodium 134 mmol/L (136-145); Total Protein 7.8 g/dL (6.4-8.2)
== END 2023-01-08 19:39 | disposition home or self-care (01) ==
LOC: LBN 19:38
PROVIDERS: PCP Legal Medicine; Visit Provider Nurse Practitioner Gerontology
DX: I50.9 Heart failure, unspecified (principal); E83.42 Hypomagnesemia
CPT/HCPCS: 80053; 85652; 83735; 83880; 85025; 86140

== ENCOUNTER → 2023-01-15 13:13 | Outpatient (BNVA) | payer MEDICARE, MEDICAID, SELFPAY | PROVIDERS: PCP Legal Medicine; Referring Provider Legal Medicine; Visit Provider Physician Assistant Surgical | DX: J44.9 Chronic obstructive pulmonary disease, unspecified (principal); Z79.899 Other long term (current) drug therapy; J98.19 Other pulmonary collapse; I10 Essential (primary) hypertension | CPT/HCPCS: 99214 ==

== ENCOUNTER → 2023-02-03 02:24 | Outpatient (CLI) | payer MEDICARE, MEDICAID, SELFPAY ==
--- NOTE | 2023-02-03 07:30 | DI.US_ITS ---
APPROVED REPORT EXAM: Comprehensive 2D, Doppler, and color-flow Echocardiogram Patient Location: Out-Patient Mat Weaver: Abdi Gross RDCS (AE) Indications: sob, complete heart marquise, pacemaker Other Information Study Quality: Technically Limited. Technically limited study due to inability to position patient, i nability to use adequate compression due to pain. Conclusion Technically very limited and suboptimal study There is probably concentric left ventricular hypertrophy. Overall LV function appears within the ra nge of normal. There is stage I diastolic dysfunction. Segmental wall motion could not be accuratel y assessed Right ventricle is not well-visualized Atria were not well-visualized. There is mild aortic stenosis. Mean gradient was 16 mmHg Dilated ascending aorta Wall motion Left Ventricle The left ventricle is grossly normal size. Unable to assess LV wall thickness. Transmitral Doppler fl ow pattern suggests impaired LV relaxation. Right Ventricle Right ventricle is not well visualized. Right ventricular systolic function could not be assessed. Atria Left atrium is not well visualized. Right atrium is not well visualized. Interatrial septum not well visualized. Aortic Valve Aortic valve is calcified. Mild aortic stenosis. Peak aortic valve gradient 27.32 mmHg. Highest mean aortic valve gradient is 15.9 mmHg. No aortic regurgitation is present. Mitral Valve The mitral valve is normal in structure. No evidence of mitral valve stenosis. There is no mitral jeremiah ve regurgitation noted. Tricuspid Valve Tricuspid valve is not well visualized. There is no tricuspid valve regurgitation noted. Pulmonic Valve The pulmonary valve is normal in structure. There is no pulmonic valvular stenosis. There is no pulmo velasquez valvular regurgitation. Great Vessels The ascending aorta is moderately dilated. IVC is normal in size and collapses >50% with inspiration. 2D Dimensions Ao Root d 3.21 cm M: 3.1 - 3.7 Ao Asc Diam d 4.62 cm M: 2.6 - 3.4 LV Diastology MV E Vmax 0.55 (0.4-1.3 m/s) MV A Vmax 0.75 (0.4-1.3 m/s) E/A Ratio 0.7 Aortic Valve AoV Vmax 2.61 m/s LVOT Vmax 1.10 m/s AoV Peak Grad 27.3 mmHg LVOT Peak Grad 4.8 mmHg AoV VTI 0.545 m LVOT VTI 0.257 m AoV Mean Darrel. 1.86 m/s LVOT Mean Grad 2.8 mmHg AoV Mean Grad 15.9 mmHg Velocity Ratio 0.42 Mitral Valve MV DT 255 (160-240 msec) MV Vmax TIPS 0.70 m/s MV Mean Grad 0.6 (<2mmHg) MV VTI 0.184 m Pulmonary Valve PV Vmax 1.04 (0.5-1.5 m/s) RVOT Vmax 0.59 m/s PV Peak Grad 4.4 mmHg RVOT Peak Gr. 1.4 mmHg PV Mean Darrel 0.74 m/s RVOT VTI 0.121 m PV Mean Grad 2.5 mmHg RVOT Mean Gr. 0.6 mmHg
== END ==
PROVIDERS: PCP Legal Medicine; Visit Provider Physician Assistant
DX: I44.2 Atrioventricular block, complete (principal); R06.02 Shortness of breath; Z95.0 Presence of cardiac pacemaker
CPT/HCPCS: 93306

== ENCOUNTER → 2023-02-20 11:01 | Outpatient (BNVA) | payer MEDICARE, MEDICAID, SELFPAY | PROVIDERS: PCP Legal Medicine; Referring Provider Legal Medicine; Visit Provider Student in an Organized Health Care Education/Training Program | DX: J98.19 Other pulmonary collapse (principal); J45.909 Unspecified asthma, uncomplicated; J98.4 Other disorders of lung | CPT/HCPCS: 99214 ==

== ENCOUNTER 2023-03-24 18:41 | Outpatient (REF) | payer MEDICARE, MEDICAID, SELFPAY ==
[2023-03-24 20:14] LABS: Abs Immature Grans 0.12 10^3/uL (0.0-0.06); Absolute Basophil Count 0.06 10^3/uL (0.0-0.2); Absolute Eosinophil Count 0.37 10^3/uL (0.0-0.7); Absolute Lymphocyte Count 2.52 10^3/uL (1.2-3.4); Absolute Monocyte Count 1.42 10^3/uL (0.1-0.8); Absolute Neutrophil Count 7.84 10^3/uL (1.2-6.7); Basophils % 0.5; HCT 37.6 % (40.0-50.0); HGB 12.5 g/dL (13.5-17.5); Lymphocytes % 20.4; MCH 33.7 pg (27.0-33.0); MCHC 33.2 % (32.0-36.0); MCV 101 fL (80-95); MPV 11.5 fL (8.0-11.0); Monocytes % 11.5; Neutrophils % 63.6; Platelet Count 251 10^3/uL (130-400); RBC 3.71 10^6/uL (4.36-5.78); RDW 13.3 % (11.8-14.1); RDW-SD 49.6 fL; WBC 12.33 10^3/uL (4.4-10.8)
[2023-03-24 20:40] LABS: ALT 16 U/L (16-63); AST 15 U/L (15-37); Albumin 2.8 g/dL (3.4-5.0); Alkaline Phosphatase 88 U/L (46-116); Anion Gap 8.5 mmol/L (3-11); BUN 13 mg/dL (7-18); Bilirubin, Total 0.4 mg/dL (0.2-1.0); CO2 26.5 mmol/L (21.0-32.0); CREATININE 0.7 mg/dL (0.70-1.30); Calcium 8.9 mg/dL (8.5-10.1); Chloride 98 mmol/L (98-107); Glucose 93 mg/dL (74-106); NT-proBNP 578 pg/mL (<300); Potassium 5.2 mmol/L (3.5-5.1); Sodium 133 mmol/L (136-145); Total Protein 6.9 g/dL (6.4-8.2)
== END 2023-03-24 18:42 | disposition home or self-care (01) ==
LOC: LBN 18:41
PROVIDERS: PCP Legal Medicine; Visit Provider Nurse Practitioner Gerontology
DX: J21.0 Acute bronchiolitis due to respiratory syncytial virus (principal); I50.9 Heart failure, unspecified; E87.1 Hypo-osmolality and hyponatremia; E83.42 Hypomagnesemia; I25.10 Atherosclerotic heart disease of native coronary artery without angina pectoris; R05.1 Acute cough; J98.4 Other disorders of lung
CPT/HCPCS: 80053; 83880; 85025

== ENCOUNTER → 2023-03-27 14:39 | Outpatient (BNVA) | payer MEDICARE, MEDICAID, SELFPAY | PROVIDERS: PCP Legal Medicine; Referring Provider Legal Medicine; Visit Provider Physician Assistant Surgical | DX: J98.19 Other pulmonary collapse (principal); J45.909 Unspecified asthma, uncomplicated; J98.4 Other disorders of lung | CPT/HCPCS: 99214 ==

== ENCOUNTER 2023-04-07 17:05 | Outpatient (REF) | payer MEDICARE, MEDICAID, SELFPAY ==
[2023-04-07 18:37] LABS: ALT 15 U/L (16-63); AST 14 U/L (15-37); Albumin 2.9 g/dL (3.4-5.0); Alkaline Phosphatase 85 U/L (46-116); Anion Gap 7.8 mmol/L (3-11); BUN 9 mg/dL (7-18); Bilirubin, Total 0.3 mg/dL (0.2-1.0); CO2 27.2 mmol/L (21.0-32.0); CREATININE 0.7 mg/dL (0.70-1.30); Calcium 8.7 mg/dL (8.5-10.1); Chloride 98 mmol/L (98-107); Glucose 109 mg/dL (74-106); Sodium 133 mmol/L (136-145); Total Protein 7.2 g/dL (6.4-8.2)
== END 2023-04-07 17:06 | disposition home or self-care (01) ==
LOC: LBN 17:05
PROVIDERS: PCP Legal Medicine; Visit Provider Nurse Practitioner Gerontology
DX: E87.1 Hypo-osmolality and hyponatremia (principal); E83.42 Hypomagnesemia; I89.0 Lymphedema, not elsewhere classified; J98.4 Other disorders of lung; G89.4 Chronic pain syndrome
CPT/HCPCS: 80053

== ENCOUNTER → 2023-05-14 09:53 | Outpatient (BNVA) | payer MEDICARE, MEDICAID, SELFPAY | PROVIDERS: PCP Legal Medicine; Referring Provider Legal Medicine; Visit Provider Physician Assistant Surgical | DX: J45.909 Unspecified asthma, uncomplicated (principal) | CPT/HCPCS: 96372 ==

== ENCOUNTER 2023-06-18 07:45 | Outpatient (CLI) | payer MEDICARE, MEDICAID, SELFPAY ==
--- NOTE | 2023-06-18 07:45 | RT.EKG_ITS ---
APPROVED REPORT Exam: Resting ECG Reason for Exam: CAD Patient Location: O HR:74 bpm ECG Measurements Heart Rate 74 AXIS CO 160 P 59 QRSd 144 QRS -83 QT 444 T 76 QTc 493 Conclusion Ventricular pacing
== END 2023-06-18 07:46 | disposition home or self-care (01) ==
LOC: DI.CARD 07:45
PROVIDERS: PCP Legal Medicine; Visit Provider Student in an Organized Health Care Education/Training Program
DX: I25.10 Atherosclerotic heart disease of native coronary artery without angina pectoris (principal); I44.2 Atrioventricular block, complete; Z95.0 Presence of cardiac pacemaker
CPT/HCPCS: 93010

== ENCOUNTER → 2023-06-18 08:21 | Outpatient (BNVA) | payer MEDICARE, MEDICAID, SELFPAY | PROVIDERS: PCP Legal Medicine; Referring Provider Legal Medicine; Visit Provider Physician Assistant | DX: I25.10 Atherosclerotic heart disease of native coronary artery without angina pectoris (principal); I44.2 Atrioventricular block, complete; Z95.0 Presence of cardiac pacemaker | CPT/HCPCS: 93005; 93280 ==

== ENCOUNTER → 2023-07-10 11:09 | Outpatient (BNVA) | payer MEDICARE, MEDICAID, SELFPAY | PROVIDERS: PCP Legal Medicine; Referring Provider Legal Medicine; Visit Provider Physician Assistant Surgical | DX: J98.19 Other pulmonary collapse (principal); J45.909 Unspecified asthma, uncomplicated | CPT/HCPCS: 99214 ==

== ENCOUNTER 2023-07-29 15:59 | Outpatient (REF) | payer MEDICARE, MEDICAID, SELFPAY ==
[2023-07-29 18:22] LABS: Abs Immature Grans 0.06 10^3/uL (0.0-0.06); Absolute Basophil Count 0.08 10^3/uL (0.0-0.2); Absolute Eosinophil Count 0.33 10^3/uL (0.0-0.7); Absolute Lymphocyte Count 1.24 10^3/uL (1.2-3.4); Absolute Monocyte Count 1.33 10^3/uL (0.1-0.8); Absolute Neutrophil Count 5.91 10^3/uL (1.2-6.7); Basophils % 0.9 %; Eosinophils % 3.7 %; HCT 38.6 % (40.0-50.0); HGB 12.8 g/dL (13.5-17.5); Immature Grans % 0.7 %; Lymphocytes % 13.9 %; MCHC 33.2 % (32.0-36.0); MCV 103 fL (80-95); MPV 11.9 fL (8.0-11.0); Monocytes % 14.9 %; Neutrophils % 65.9 %; Platelet Count 198 10^3/uL (130-400); RBC 3.76 10^6/uL (4.36-5.78); RDW 12.9 % (11.8-14.1); WBC 8.95 10^3/uL (4.4-10.8)
[2023-07-29 18:37] LABS: ALT 21 U/L (16-63); AST 20 U/L (15-37); Alkaline Phosphatase 90 U/L (46-116); Anion Gap 6.8 mmol/L (3-11); BUN 11 mg/dL (7-18); Bilirubin, Total 0.4 mg/dL (0.2-1.0); CO2 27.2 mmol/L (21.0-32.0); CREATININE 0.6 mg/dL (0.70-1.30); Calcium 8.2 mg/dL (8.5-10.1); Chloride 95 mmol/L (98-107); Estimated GFR 102.56 (mL/min/1.73m2); Glucose 105 mg/dL (74-106); Magnesium 1.8 mg/dL (1.8-2.4); NT-proBNP 506 pg/mL (<300); Sodium 129 mmol/L (136-145)
[2023-07-30 11:55] LABS: Vitamin D 25 Total 10.6 ng/mL (30-100)
== END 2023-07-29 16:00 | disposition home or self-care (01) ==
LOC: LBN 15:59
PROVIDERS: PCP Legal Medicine; Visit Provider Nurse Practitioner Gerontology
DX: E87.1 Hypo-osmolality and hyponatremia (principal); D51.9 Vitamin B12 deficiency anemia, unspecified
CPT/HCPCS: 80053; 82306; 83735; 83880; 85025

== ENCOUNTER 2023-08-04 22:03 | Outpatient (REF) | payer MEDICARE, MEDICAID, SELFPAY ==
[2023-08-04 18:44] LABS: Abs Immature Grans 0.06 10^3/uL (0.0-0.06); Absolute Basophil Count 0.01 10^3/uL (0.0-0.2); Absolute Lymphocyte Count 0.97 10^3/uL (1.2-3.4); Absolute Monocyte Count 0.41 10^3/uL (0.1-0.8); Absolute Neutrophil Count 7.92 10^3/uL (1.2-6.7); Basophils % 0.1 %; Immature Grans % 0.6 %; Lymphocytes % 10.4 %; MCH 33.9 pg (27.0-33.0); MCHC 34.2 % (32.0-36.0); MCV 99 fL (80-95); Monocytes % 4.4 %; Neutrophils % 84.5 %; Platelet Count 220 10^3/uL (130-400); RBC 3.84 10^6/uL (4.36-5.78); RDW 12.1 % (11.8-14.1); RDW-SD 44.2 fL; WBC 9.37 10^3/uL (4.4-10.8)
[2023-08-04 19:01] LABS: ALT 28 U/L (16-63); AST 22 U/L (15-37); Albumin 3.2 g/dL (3.4-5.0); Alkaline Phosphatase 84 U/L (46-116); Anion Gap 8.1 mmol/L (3-11); BUN 11 mg/dL (7-18); Bilirubin, Total 0.4 mg/dL (0.2-1.0); CO2 26.9 mmol/L (21.0-32.0); CREATININE 0.7 mg/dL (0.70-1.30); Calcium 8.3 mg/dL (8.5-10.1); Chloride 91 mmol/L (98-107); Glucose 158 mg/dL (74-106); NT-proBNP 556 pg/mL (<300); Sodium 126 mmol/L (136-145); Total Protein 7.3 g/dL (6.4-8.2)
== END 2023-08-04 22:04 | disposition home or self-care (01) ==
LOC: LBN 22:03
PROVIDERS: PCP Legal Medicine; Visit Provider Nurse Practitioner Gerontology
DX: I50.20 Unspecified systolic (congestive) heart failure (principal); J21.0 Acute bronchiolitis due to respiratory syncytial virus; G89.4 Chronic pain syndrome; E87.1 Hypo-osmolality and hyponatremia
CPT/HCPCS: 80053; 83880; 85025

== ENCOUNTER 2023-08-11 15:54 | Emergency (ER) | payer MEDICARE, MEDICAID, SELFPAY ==
[2023-08-11] VITALS (22 sets, daily range): BP systolic 74–146; BP diastolic 48–100; PULSE 60–65; RESP 15–30; O2SAT 91
--- NOTE | 2023-08-11 15:45 | RT.EKG_ITS ---
APPROVED REPORT Exam: Resting ECG Reason for Exam: SOB Patient Location: E HR:61 bpm ECG Measurements Heart Rate 61 AXIS MO 182 P 12 QRSd 156 QRS -75 QT 464 T 84 QTc 467 Conclusion paced 61 no stemi
--- NOTE | 2023-08-11 16:26 | W.ED.GENAD ---
Discharge Plan Discharge Details Chief Complaint: SOB Primary Care Provider: Monalisa Dong ED Provider: José Miguel Coello Home Meds and New Rx's Prescriptions: No Action fentanyl 12 mcg/hr patch 72 hour 1 patch transdermal Q72H ibuprofen 200 mg tablet 200 mg PO BID PRN Dupixent Pen 300 mg/2 mL pen injector 300 mg subcut Q2W loratadine 10 mg tablet 10 mg PO DAILY benzonatate 100 mg capsule 100 mg PO BID albuterol sulfate 90 mcg/actuation aerosol powdr breath activated 2 inh inhalation TID Rx Instructions: *and* q4h PRN calcium carbonate 215 mg calcium (500 mg) tablet,chewable 1,000 mg PO Q6H PRN fluticasone propionate 50 mcg/actuation spray,suspension 1 spray intranasal BID Rx Instructions: administer into each nostril Ultra B-100 Complex Tablet Extended Release 1 tab PO DAILY pantoprazole 40 mg tablet,delayed release (DR/EC) 40 mg PO DAILY polyethylene glycol 3350 [Miralax] 17 gram powder in packet 17 g PO DAILY PRN sennosides-docusate sodium [Senexon-S] 8.6-50 mg tablet 2 tab-cap PO DAILY acetaminophen [Tylenol Extra Strength] 500 mg tablet 1,000 mg PO DAILY Rx Instructions: and q12 hours as needed sertraline 25 mg tablet 50 mg PO DAILY metoprolol succinate 200 mg tablet extended release 24 hr 200 mg PO DAILY Rx Instructions: Hold for HR < 60 memantine 5 mg tablet 5 mg PO BID Trelegy Ellipta 200-62.5-25 mcg blister with device 1 inh inhalation DAILY ipratropium-albuterol 0.5 mg-3 mg(2.5 mg base)/3 mL solution for nebulization 3 ml inhalation Q12H PRN PRN Zenpep 5,000-17,000- 24,000 unit capsule,delayed release(DR/EC) PO TID melatonin 3 mg capsule 3 mg PO HS beer PO Rx Instructions: may have 2 beers by mouth daily 12 or 16oz,only 1 beer if 24oz container colestipol 1 gram tablet 2 g PO BID spironolactone 25 mg tablet 100 mg PO DAILY Patient Comments: 06/05/22 on med list from [facility] ipratropium-albuterol 0.5 mg-3 mg(2.5 mg base)/3 mL Solution For Nebulization 3 ml INHALATION BID PRN dextromethorphan-guaifenesin [Tussin DM] 10-100 mg/5 mL Liquid 10 ml PO Q4H PRN magnesium gluconate 500 mg Tablet 500 mg PO DAILY Trelegy Ellipta 200-62.5-25 mcg Blister With Device 1 inh INHALATION DAILY HPI General Date/Time Provider Initiated Documentation: 08/11/23 16:06. HPI Narrative: 72-year-old male history of asthma, presents brought in by EMS for evaluation of shortness of breath comes from the [facility], increased cough over the past couple of days. Related Data Home Medications Medication Instructions Recorded Confirmed albuterol sulfate 90 mcg/actuation 2 inh inhalation TID 03/29/21 07/14/23 breath activated powder inhaler calcium carbonate 1,000 mg PO Q6H PRN 03/29/21 07/14/23 fluticasone propionate 50 1 spray intranasal BID 03/29/21 07/14/23 mcg/actuation nasal spray,suspension pantoprazole 40 mg tablet,delayed 40 mg PO DAILY 03/29/21 07/14/23 release polyethylene glycol 3350 17 gram 17 g PO DAILY PRN 03/29/21 07/14/23 oral powder packet (Miralax) sennosides 8.6 mg-docusate sodium 2 tab-cap PO DAILY 03/29/21 07/14/23 50 mg tablet (Senexon-S) vitamin B complex (Ultra B-100 1 tab PO DAILY 03/29/21 07/14/23 Complex ER tablet,extended release) metoprolol succinate 200 mg 200 mg PO DAILY 05/02/21 07/14/23 tablet,extended release 24 hr melatonin 3 mg capsule 3 mg PO HS 05/10/21 07/14/23 beer PO 10/18/21 06/18/23 colestipol 1 gram tablet 2 g PO BID 12/06/21 07/14/23 ipratropium 0.5 mg-albuterol 3 mg 3 ml inhalation BID PRN 03/12/22 07/14/23 (2.5 mg base)/3 mL nebulization soln fentanyl 12 mcg/hr transdermal 1 patch transdermal Q72H 04/29/22 07/14/23 patch spironolactone 25 mg tablet 100 mg PO DAILY 06/05/22 07/14/23 dextromethorphan-guaifenesin 10 10 ml PO Q4H PRN 08/28/22 07/14/23 mg-100 mg/5 mL oral liquid (Tussin DM) fluticasone fur. 200 mcg-umeclid 1 inh inhalation DAILY 08/28/22 07/14/23 62.5 mcg-vilant 25 mcg inhalat.powder (Trelegy Ellipta) magnesium gluconate 500 mg tablet 500 mg PO DAILY 08/28/22 07/14/23 acetaminophen 500 mg tablet 1,000 mg PO DAILY 01/15/23 07/14/23 (Tylenol Extra Strength) benzonatate 100 mg capsule 100 mg PO BID 03/27/23 07/14/23 loratadine 10 mg tablet 10 mg PO DAILY 03/27/23 07/14/23 fluticasone fur. 200 mcg-umeclid 1 inh inhalation DAILY 06/18/23 07/14/23 62.5 mcg-vilant 25 mcg inhalat.powder (Trelegy Ellipta) ipratropium 0.5 mg-albuterol 3 mg 3 ml inhalation Q12H PRN PRN 06/18/23 07/14/23 (2.5 mg base)/3 mL nebulization soln [id number]-qavlwnh cap PO TID 06/18/23 07/14/23 5,000-17,000-24,000 unit capsule, delayed rel (Zenpep) memantine 5 mg tablet 5 mg PO BID 06/18/23 07/14/23 sertraline 25 mg tablet 50 mg PO DAILY 06/18/23 07/14/23 dupilumab 300 mg/2 mL subcutaneous 300 mg subcut Q2W 07/10/23 07/14/23 pen injector (Dupixent) ibuprofen 200 mg tablet 200 mg PO BID PRN 07/10/23 07/14/23 Allergies Allergy/AdvReac Type Severity Reaction Status Date / Time No Known Allergies Allergy Verified 08/11/23 16:05 General Stated Complaint: SOB INDY: 3 Review of Systems Narrative: Review of Systems Constitutional: negative Eyes: negative ENT: negative Cardiovascular: negative Respiratory: Cough shortness of breath Gastrointestinal: negative : negative Musculoskeletal: negative Skin: negative Neurologic: negative Psych: negative Exam Narrative Exam Narrative: Physical Examination General: alert, awake, cooperative, resting comfortably, no acute distress HEENT: normocephalic, atraumatic; PERRL, EOM intact, conjunctiva normal; no nasal discharge; moist mucous membranes, oral and pharyngeal mucosa normal, tolerating secretions Neck: supple, trachea midline; full ROM Chest: normal to inspection Respiratory: normal respiratory effort, speaking in full sentences, quiet lung sounds left anterior lung field, mild wheezing right anterior lung field Cardiac: regular rate, regular rhythm, S1S2 intact, no murmurs rubs or gallops GI: abdomen soft, non-tender, non-distended; no palpable mass or hepatosplenomegaly Skin: no lesions, rashes or trauma appreciated Neuro: AAOx3, normal speech, moving all extremities Psych: Appropriate mood and affect Course Vital Signs Vital signs: Vital Signs Pulse 60 08/11/23 15:55 Respiratory Rate 30 H 08/11/23 15:55 Blood Pressure 121/59 L 08/11/23 15:55 Pulse Oximetry 91 L 08/11/23 15:55 Pulse 60 08/11/23 15:55 Respiratory Rate 30 H 08/11/23 15:55 Respiratory Effort Short of Breath 08/11/23 16:04 Blood Pressure 121/59 L 08/11/23 15:55 Blood Pressure Position Sitting 08/11/23 15:55 Pulse Oximetry 91 L 08/11/23 15:55 Oxygen Delivery Method Nasal Cannula 08/11/23 15:55 Oxygen Flow Rate 2 08/11/23 15:55 Medical Decision Making 72-year-old male history of obesity heart block asthma presents with shortness of breath and cough for the past couple of days referred in from the [facility] for evaluation of increased cough. Quiet lung sounds left anterior lung field, slight expiratory wheeze right anterior lung field, saturating high 80s on room air placed on nasal cannula 3 L with improvement. Consider asthma exacerbation versus COPD exacerbation most also consider pneumonia lower suspicion for pneumothorax lower suspicion for CHF ACS PE or aortic pathology. Screening labs chest x-ray albuterol/ipratropium dexamethasone close reassessment 5: 13 resting comfortably no acute distress awaiting labs and imaging results as well as attempted weaning of nasal cannula for disposition Quality:SDOH Health Related Social Needs: No Data to Display PFSH All Active Problems (Updated 06/05/23 @ 14:06 by Yaakov Mcfadden NP) Nail dystrophy (Acute) Restrictive lung disease (Acute) Asthma (Chronic) Shortness of breath (Acute) CHB (complete heart block) (Acute) had permanent pacemaker implanted 2018 for this Sebaceous cyst (Acute) Nasal obstruction (Acute) External nasal lesion (Acute) Hypertension (Chronic) Bloating (Acute) Heme positive stool (Acute) Infected sebaceous cyst of skin (Acute) Trapped lung (Acute) Sacroiliitis (Acute) Depression (Chronic) Lymphedema (Acute) HTN (hypertension) with goal to be determined (Chronic) Obesity (Chronic) DNR (do not resuscitate) (Acute) Presence of cardiac pacemaker (Chronic) [employer] P[employer] MRI model L111 Serial # [id number] placed dual chamber 04/30/2017 for CHB at [facility]. 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 Most likely this is inflammatory tissue and not actually fluid. pt has had multiple taps. He was on a prolonged course of IV abx and has failed to resolve. This is a sequelae of this pericardial tamponade following disruption of his RA lead from pacemaker insertion. Hyponatremia, hypo-osmolarity, or hypo-osmolar hyponatremia Recurrent left pleural effusion Surgical History History of permanent cardiac pacemaker placement with subsequent repositioning S/P laparoscopic cholecystectomy Social History Smoking/Tobacco Use Status: Never Smoking risk assessment performed?: Yes Alcohol Intake: current Alcohol Intake frequency: 0-2 drinks per day Alcohol type: beer Housing: assisted living facility Pets and animals: No Do you feel safe at home: Yes Do you feel safe in your relationship?: Yes
[2023-08-11] MEDS: Albuterol/Ipratropium 3 ML UPD VIAL 9 ML UPD (16:43)
[2023-08-11] MEDS: Dexamethasone 10 MG/ML VIAL IVP (16:43)
[2023-08-11 16:51] LABS: HCT 37.4 % (40.0-50.0); HGB 12.4 g/dL (13.5-17.5); MCH 33.7 pg (27.0-33.0); MCHC 33.2 % (32.0-36.0); MCV 102 fL (80-95); MPV 11.2 fL (8.0-11.0); Platelet Count 220 10^3/uL (130-400); RBC 3.68 10^6/uL (4.36-5.78); RDW 12.1 % (11.8-14.1); RDW-SD 46.1 fL; WBC 13.35 10^3/uL (4.4-10.8)
--- NOTE | 2023-08-11 17:00 | DI.RAD_ITS ---
Exam(s) XR CHEST 2V PA LATERAL EXAM: XR CHEST 2V PA LATERAL CLINICAL HISTORY: cough, copd TECHNIQUE: 2D digital imaging was performed of the chest. Two images were obtained. PA and lateral views were obtained. COMPARISON: CR,XR XR CHEST 2V PA LATERAL from 08/28/[address] CHEST/ABD/PEL WO from 09/16/2022 FINDINGS: MEDIASTINUM: Normal. HEART: Heart is at the upper limits of normal to mildly enlarged. There is a cardiac monitoring chel ce in place. PULMONARY VASCULATURE: Normal. LUNGS: Chronic changes are again seen in the lung bases. No superimposed/new infiltrate is seen. PLEURAL SPACE: The patient's chronic left pleural effusion is stable. No significant right pleural e ffusion is seen. Right-sided pleural calcifications are again seen. BONE:Within normal limits for the patient's age. OTHER FINDINGS:Normal. IMPRESSION: No significant change in appearance of the chest x-ray since 08/28/2022. Please see the above discuss ion for complete details. DATA REPOSITORY: RADIATION DOSE DELIVERED:
[2023-08-11 17:15] LABS: Absolute Basophil Count 0.13 10^3/uL (0.0-0.2); Absolute Lymphocyte Count 2.27 10^3/uL (1.2-3.4); Absolute Neutrophil Count 9.21 10^3/uL (1.2-6.7); Atypical Lymphocytes % 1 %; Diff Comment Manual Differential; Macrocytosis 1+; Myelocytes % 1
[2023-08-11 17:16] LABS: ALT 21 U/L (16-63); AST 22 U/L (15-37); Albumin 2.9 g/dL (3.4-5.0); Alkaline Phosphatase 79 U/L (46-116); Anion Gap 5.4 mmol/L (3-11); BUN 9 mg/dL (7-18); Bilirubin, Total 0.5 mg/dL (0.2-1.0); CO2 30.6 mmol/L (21.0-32.0); CREATININE 0.6 mg/dL (0.70-1.30); Calcium 8.4 mg/dL (8.5-10.1); Chloride 93 mmol/L (98-107); Estimated GFR 102.56 (mL/min/1.73m2); Glucose 98 mg/dL (74-106); Sodium 129 mmol/L (136-145); Total Protein 7.4 g/dL (6.4-8.2)
--- NOTE | 2023-08-11 17:51 | W.EDPROG ---
Date of service: 08/11/23 Time of Service: 17:51 Medical Decision Making Care accepted in signout. Patient is a 72-year-old gentleman with past medical history including lung disease, hypertension, is DNR and lives at the [facility]. Patient was sent over with concerns for possible shortness of breath or pneumonia. Patient was initially requiring oxygen to maintain saturations. He was given steroids and breathing treatment. His chest x-ray does not demonstrate significant cardiomegaly or consolidation and there is no acute change from prior. Lab work reviewed he does have a mild leukocytosis, but frequently has elevated white blood cell counts. He has a stable hemoglobin. He has chronic hyponatremia that is not significantly changed. I was able to remove the patient from supplemental oxygen and he was able to maintain his oxygen saturations. Given his findings today, I do not feel that he needs antibiotics as there is no clear evidence of pneumonia. The patient feels well enough to return back to his facility. Return precautions advised. Discharged in good condition and transported by ambulance back to the [facility]. Medical Records Medical records reviewed: Yes I reviewed the patient's medical records. Lab Data Lab results reviewed: Yes I reviewed the patient's lab results. Quality:[facility] Health Related Social Needs: No Data to Display Sign Out Sign Out Data: Sign Out Comment: asthma/copd, sent from [facility] for cough; new O2 requirement; pending trial of weaning NC after nebs and steroids, pending labs imaging and reassessment for dispo Last updated by José Miguel Coello MD at 08/11/23 17:17 Discharge Plan Disposition Patient Disposition: Longterm Facility(SNF) Discharge Details Clinical Impression: Shortness of breath, Restrictive lung disease, Chronic hyponatremia Primary Care Provider: Monalisa Dong ED Provider: Jack Gutierrez Home Meds and New Rx's Prescriptions: No Action fentanyl 12 mcg/hr patch 72 hour 1 patch transdermal Q72H ibuprofen 200 mg tablet 200 mg PO BID PRN Dupixent Pen 300 mg/2 mL pen injector 300 mg subcut Q2W loratadine 10 mg tablet 10 mg PO DAILY benzonatate 100 mg capsule 100 mg PO BID albuterol sulfate 90 mcg/actuation aerosol powdr breath activated 2 inh inhalation TID Rx Instructions: *and* q4h PRN calcium carbonate 215 mg calcium (500 mg) tablet,chewable 1,000 mg PO Q6H PRN fluticasone propionate 50 mcg/actuation spray,suspension 1 spray intranasal BID Rx Instructions: administer into each nostril Ultra B-100 Complex Tablet Extended Release 1 tab PO DAILY pantoprazole 40 mg tablet,delayed release (DR/EC) 40 mg PO DAILY polyethylene glycol 3350 [Miralax] 17 gram powder in packet 17 g PO DAILY PRN sennosides-docusate sodium [Senexon-S] 8.6-50 mg tablet 2 tab-cap PO DAILY acetaminophen [Tylenol Extra Strength] 500 mg tablet 1,000 mg PO DAILY Rx Instructions: and q12 hours as needed sertraline 25 mg tablet 50 mg PO DAILY metoprolol succinate 200 mg tablet extended release 24 hr 200 mg PO DAILY Rx Instructions: Hold for HR < 60 memantine 5 mg tablet 5 mg PO BID Trelegy Ellipta 200-62.5-25 mcg blister with device 1 inh inhalation DAILY ipratropium-albuterol 0.5 mg-3 mg(2.5 mg base)/3 mL solution for nebulization 3 ml inhalation Q12H PRN PRN Zenpep 5,000-17,000- 24,000 unit capsule,delayed release(DR/EC) 1 cap PO TID melatonin 3 mg capsule 3 mg PO HS beer PO Rx Instructions: may have 2 beers by mouth daily 12 or 16oz,only 1 beer if 24oz container colestipol 1 gram tablet 2 g PO BID spironolactone 25 mg tablet 100 mg PO DAILY Patient Comments: 06/05/22 on med list from [facility] ipratropium-albuterol 0.5 mg-3 mg(2.5 mg base)/3 mL Solution For Nebulization 3 ml INHALATION BID PRN dextromethorphan-guaifenesin [Tussin DM] 10-100 mg/5 mL Liquid 10 ml PO Q4H PRN magnesium gluconate 500 mg Tablet 500 mg PO DAILY Trelegy Ellipta 200-62.5-25 mcg Blister With Device 1 inh INHALATION DAILY cholecalciferol (vitamin D3) [Vitamin D3] 125 mcg (5,000 unit) tablet 5,000 unit PO .weekly sodium chloride 1gm Rx Instructions: 1gm tablets PO QD for hypo-osmolality and hyponatremia Discharge Instructions Instructions: Dyspnea (ED) Additional Instructions: Lab work and chest x-ray do not demonstrate an pneumonia today. No indication for antibiotics. The patient's symptoms improved with steroids and breathing treatments. He is not requiring oxygen. Please continue breathing treatment at home Follow-up with PCP for reevaluation and additional medications.
== END 2023-08-11 19:17 | disposition skilled nursing facility (03) ==
PROVIDERS: Emergency Medicine; Emergency Provider Emergency Medicine; PCP Legal Medicine
DX: J66.8 Airway disease due to other specific organic dusts (principal); E87.1 Hypo-osmolality and hyponatremia; I10 Essential (primary) hypertension; I25.10 Atherosclerotic heart disease of native coronary artery without angina pectoris; Z95.0 Presence of cardiac pacemaker; Z79.899 Other long term (current) drug therapy
CPT/HCPCS: 00123; 80053; 93005; 94640; 99285; 71046; 85025; 93010; 99284; J1100; J7620

== ENCOUNTER 2023-08-16 16:42 | Inpatient (IN) | payer MEDICARE, MEDICAID, SELFPAY ==
[2023-08-16] VITALS (38 sets, daily range): BP systolic 96–175; BP diastolic 54–130; PULSE 61–77; RESP 2–33; TEMP 36.2; O2SAT 91–98
--- NOTE | 2023-08-16 16:45 | RT.EKG_ITS ---
APPROVED REPORT Exam: Resting ECG Reason for Exam: SOB Patient Location: E HR:67 bpm ECG Measurements Heart Rate 67 AXIS OK 203 P 21 QRSd 148 QRS -85 QT 446 T 72 QTc 473 Conclusion Sinus rhythm...normal P axis, V-rate 60- 99 Inferior infarct, old...Q >35mS, II III aVF Anterior infarct, old...Q >40mS, abnormal ST-T, V2-V5 V paced
--- NOTE | 2023-08-16 17:00 | DI.RAD_ITS ---
Exam(s) XR CHEST 2V PA LATERAL EXAM: XR CHEST 2V PA LATERAL CLINICAL HISTORY: worsening cough, rhonchi TECHNIQUE: 2D digital imaging was performed of the chest. Two images were obtained. PA and lateral views were obtained. COMPARISON: CR XR CHEST 2V PA LATERAL from 08/11/2023 FINDINGS: There is poor inspiration. MEDIASTINUM: Normal. HEART: Mild cardiomegaly. Cardiac pacing device is in place. PULMONARY VASCULATURE: Normal. LUNGS: There is increased opacity in the right lung base compared to the prior examination. The left lung base opacity is unchanged. PLEURAL SPACE: Pleural calcifications are again seen. There is a persistent left pleural effusion be st appreciated on the lateral view. This is unchanged. BONE:Within normal limits for the patient's age. OTHER FINDINGS:Normal. IMPRESSION: 1. Slight increased opacity in the right lung base since prior examination, which may represent atele ctasis or pneumonia. 2. Persistent chronic right pleural effusion. 3. Cardiomegaly. DATA REPOSITORY: RADIATION DOSE DELIVERED:
--- NOTE | 2023-08-16 17:10 | ED.GENADUL_ITS ---
Discharge Plan Disposition Patient Disposition: Admit to [facility] Condition: Stable Discharge Details Chief Complaint: SOB Clinical Impression: CHF (congestive heart failure), Pneumonia Primary Care Provider: Monalisa Dong ED Provider: José Miguel Coello [place] Meds and New Rx's Prescriptions: No Action fentanyl 12 mcg/hr patch 72 hour 1 patch transdermal Q72H ibuprofen 200 mg tablet 200 mg PO BID PRN Dupixent Pen 300 mg/2 mL pen injector 300 mg subcut Q2W loratadine 10 mg tablet 10 mg PO DAILY benzonatate 100 mg capsule 100 mg PO BID albuterol sulfate 90 mcg/actuation aerosol powdr breath activated 2 inh inhalation TID Rx Instructions: *and* q4h PRN calcium carbonate 215 mg calcium (500 mg) tablet,chewable 1,000 mg PO Q6H PRN fluticasone propionate 50 mcg/actuation spray,suspension 1 spray intranasal BID Rx Instructions: administer into each nostril Ultra B-100 Complex Tablet Extended Release 1 tab PO DAILY pantoprazole 40 mg tablet,delayed release (DR/EC) 40 mg PO DAILY polyethylene glycol 3350 [Miralax] 17 gram powder in packet 17 g PO DAILY PRN sennosides-docusate sodium [Senexon-S] 8.6-50 mg tablet 2 tab-cap PO DAILY acetaminophen [Tylenol Extra Strength] 500 mg tablet 1,000 mg PO DAILY Rx Instructions: and q12 hours as needed sertraline 25 mg tablet 50 mg PO DAILY metoprolol succinate 200 mg tablet extended release 24 hr 200 mg PO DAILY Rx Instructions: Hold for HR < 60 memantine 5 mg tablet 5 mg PO BID Trelegy Ellipta 200-62.5-25 mcg blister with device 1 inh inhalation DAILY ipratropium-albuterol 0.5 mg-3 mg(2.5 mg base)/3 mL solution for nebulization 3 ml inhalation Q12H PRN PRN Zenpep 5,000-17,000- 24,000 unit capsule,delayed release(DR/EC) 1 cap PO TID melatonin 3 mg capsule 3 mg PO HS beer PO Rx Instructions: may have 2 beers by mouth daily 12 or 16oz,only 1 beer if 24oz container colestipol 1 gram tablet 2 g PO BID spironolactone 25 mg tablet 100 mg PO DAILY Patient Comments: 4/5/23 on med list from [facility] ipratropium-albuterol 0.5 mg-3 mg(2.5 mg base)/3 mL Solution For Nebulization 3 ml INHALATION BID PRN dextromethorphan-guaifenesin [Tussin DM] 10-100 mg/5 mL Liquid 10 ml PO Q4H PRN magnesium gluconate 500 mg Tablet 500 mg PO DAILY Trelegy Ellipta 200-62.5-25 mcg Blister With Device 1 inh INHALATION DAILY cholecalciferol (vitamin D3) [Vitamin D3] 125 mcg (5,000 unit) tablet 5,000 unit PO .weekly sodium chloride 1gm Rx Instructions: 1gm tablets PO QD for hypo-osmolality and hyponatremia HPI General Date/Time Provider Initiated Documentation: 08/16/23 16:48 . HPI Narrative: 72-year-old male history of COPD referred from the [facility] for evaluation of worsening cough, was seen here couple days ago, treated with nebs and dexamethasone discharged after improvement of symptomatology, now with worsening cough Related Data Home Medications Medication Instructions Recorded Confirmed albuterol sulfate 90 mcg/actuation 2 inh inhalation TID 03/29/21 08/11/23 breath activated powder inhaler calcium carbonate 1,000 mg PO Q6H PRN 03/29/21 08/11/23 fluticasone propionate 50 1 spray intranasal BID 03/29/21 08/11/23 mcg/actuation nasal spray,suspension pantoprazole 40 mg tablet,delayed 40 mg PO DAILY 03/29/21 08/11/23 release polyethylene glycol 3350 17 gram 17 g PO DAILY PRN 03/29/21 08/11/23 oral powder packet (Miralax) sennosides 8.6 mg-docusate sodium 2 tab-cap PO DAILY 03/29/21 08/11/23 50 mg tablet (Senexon-S) vitamin B complex (Ultra B-100 1 tab PO DAILY 03/29/21 08/11/23 Complex ER tablet,extended release) metoprolol succinate 200 mg 200 mg PO DAILY 05/02/21 08/11/23 tablet,extended release 24 hr melatonin 3 mg capsule 3 mg PO HS 05/10/21 08/11/23 beer PO 10/18/21 06/18/23 colestipol 1 gram tablet 2 g PO BID 12/06/21 08/11/23 ipratropium 0.5 mg-albuterol 3 mg 3 ml inhalation BID PRN 03/12/22 08/11/23 (2.5 mg base)/3 mL nebulization soln fentanyl 12 mcg/hr transdermal 1 patch transdermal Q72H 04/29/22 08/11/23 patch spironolactone 25 mg tablet 100 mg PO DAILY 06/05/22 08/11/23 dextromethorphan-guaifenesin 10 10 ml PO Q4H PRN 08/28/22 08/11/23 mg-100 mg/5 mL oral liquid (Tussin DM) fluticasone fur. 200 mcg-umeclid 1 inh inhalation DAILY 08/28/22 08/11/23 62.5 mcg-vilant 25 mcg inhalat.powder (Trelegy Ellipta) magnesium gluconate 500 mg tablet 500 mg PO DAILY 08/28/22 08/11/23 acetaminophen 500 mg tablet 1,000 mg PO DAILY 01/15/23 08/11/23 (Tylenol Extra Strength) benzonatate 100 mg capsule 100 mg PO BID 03/27/23 08/11/23 loratadine 10 mg tablet 10 mg PO DAILY 03/27/23 08/11/23 fluticasone fur. 200 mcg-umeclid 1 inh inhalation DAILY 06/18/23 08/11/23 62.5 mcg-vilant 25 mcg inhalat.powder (Trelegy Ellipta) ipratropium 0.5 mg-albuterol 3 mg 3 ml inhalation Q12H PRN PRN 06/18/23 08/11/23 (2.5 mg base)/3 mL nebulization soln [id number] 1 cap PO TID 06/18/23 08/11/23 5,000-17,000-24,000 unit capsule, delayed rel (Zenpep) memantine 5 mg tablet 5 mg PO BID 06/18/23 08/11/23 sertraline 25 mg tablet 50 mg PO DAILY 06/18/23 08/11/23 dupilumab 300 mg/2 mL subcutaneous 300 mg subcut Q2W 07/10/23 08/11/23 pen injector (Dupixent) ibuprofen 200 mg tablet 200 mg PO BID PRN 07/10/23 08/11/23 cholecalciferol (vitamin D3) 125 5,000 unit PO .weekly 08/11/23 08/11/23 mcg (5,000 unit) tablet (Vitamin D3) sodium chloride 1gm 08/11/23 Allergies Allergy/AdvReac Type Severity Reaction Status Date / Time No Known Allergies Allergy Verified 08/16/23 16:52 General Stated Complaint: SOB INDY: 3 Review of Systems Narrative: Review of Systems Constitutional: negative Eyes: negative ENT: negative Cardiovascular: negative Respiratory: Cough Gastrointestinal: negative : negative Musculoskeletal: negative Skin: negative Neurologic: negative Psych: negative Exam Narrative Exam Narrative: Physical Examination General: alert, awake, cooperative, resting comfortably, no acute distress HEENT: normocephalic, atraumatic; PERRL, EOM intact, conjunctiva normal; no nasal discharge; moist mucous membranes, oral and pharyngeal mucosa normal, tolerating secretions Neck: supple, trachea midline; full ROM Chest: normal to inspection Respiratory: normal respiratory effort, speaking in full sentences, rhonchorous breath sounds bilaterally Cardiac: regular rate, regular rhythm, S1S2 intact, no murmurs rubs or gallops GI: abdomen soft, non-tender, non-distended; no palpable mass or hepatosplenomegaly Skin: no lesions, rashes or trauma appreciated Neuro: AAOx3, normal speech, moving all extremities Extremities: No peripheral edema Psych: Appropriate mood and affect Course Vital Signs Vital signs: Vital Signs Temperature 36.2 C L 08/16/23 16:48 Pulse 65 08/16/23 16:48 Respiratory Rate 18 08/16/23 16:48 Blood Pressure 135/98 H 08/16/23 16:48 Pulse Oximetry 91 L 08/16/23 16:48 Temperature 36.2 C L 08/16/23 16:48 Temperature Source Temporal Artery Scan 08/16/23 16:48 Pulse 65 08/16/23 16:48 Respiratory Rate 18 08/16/23 16:48 Blood Pressure 135/98 H 08/16/23 16:48 Pulse Oximetry 91 L 08/16/23 16:48 Lab/Test Results Lab/Test Results: 08/16/23 17:05 Blood Blood Culture - Pending 08/16/23 17:05 Blood Blood Culture - Pending Medical Decision Making 72-year-old male history of COPD presents with worsening cough, rhonchorous breath sounds bilaterally, relative hypoxia to 90% on room air started on 2 L nasal cannula. Speaking full sentences. High clinical suspicion for viral versus bacterial pneumonia and COPD exacerbation muscles consider CHF lower suspicion for PE aortic pathology or pneumothorax. Screening x-ray, labs blood cultures trial of nebulized albuterol/ipratropium dexamethasone will start empiric ceftriaxone azithromycin admission likely. 19: 15 likely pneumonia with component of CHF. Have initiated antibiotics, as well as Lasix. Patient to be admitted Quality:[facility] Health Related Social Needs: No Data to Display PFSH All Active Problems (Updated 08/16/23 @ 19:16 by José Miguel Coello MD) Pneumonia (Acute) CHF (congestive heart failure) (Chronic) Chronic hyponatremia (Acute) Shortness of breath (Acute) Nail dystrophy (Acute) Restrictive lung disease (Acute) Asthma (Chronic) Shortness of breath (Acute) CHB (complete heart block) (Acute) had permanent pacemaker implanted 2018 for this Sebaceous cyst (Acute) Nasal obstruction (Acute) External nasal lesion (Acute) Hypertension (Chronic) Bloating (Acute) Heme positive stool (Acute) Infected sebaceous cyst of skin (Acute) Trapped lung (Acute) Sacroiliitis (Acute) Depression (Chronic) Lymphedema (Acute) HTN (hypertension) with goal to be determined (Chronic) Obesity (Chronic) DNR (do not resuscitate) (Acute) Presence of cardiac pacemaker (Chronic) [employer] PPM MRI model L111 Serial # [id number] placed dual chamber 04/30/2017 for CHB at [facility]. 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 Most likely this is inflammatory tissue and not actually fluid. pt has had multiple taps. He was on a prolonged course of IV abx and has failed to resolve. This is a sequelae of this pericardial tamponade following disruption of his RA lead from pacemaker insertion. Hyponatremia, hypo-osmolarity, or hypo-osmolar hyponatremia Recurrent left pleural effusion Surgical History History of permanent cardiac pacemaker placement with subsequent repositioning S/P laparoscopic cholecystectomy Social History Smoking/Tobacco Use Status: Never Smoking risk assessment performed?: Yes Alcohol Intake: current Alcohol Intake frequency: 0-2 drinks per day Alcohol type: beer Housing: assisted living facility Pets and animals: No Do you feel safe at home: Yes Do you feel safe in your relationship?: Yes
[2023-08-16 17:33] LABS: HCT 36.6 % (40.0-50.0); HGB 12.4 g/dL (13.5-17.5); MCH 33.8 pg (27.0-33.0); MCHC 33.9 % (32.0-36.0); MCV 100 fL (80-95); MPV 11.2 fL (8.0-11.0); Platelet Count 200 10^3/uL (130-400); RBC 3.67 10^6/uL (4.36-5.78); RDW 11.6 % (11.8-14.1); RDW-SD 42.4 fL; WBC 15.25 10^3/uL (4.4-10.8)
[2023-08-16 17:47] LABS: INR 1.1 (0.9-1.1); PTT Activated 26.3 sec (23.6-32.8); Prothrombin Time 10.9 sec (9.1-11.1)
[2023-08-16 17:50] LABS: ALT 32 U/L (16-63); AST 25 U/L (15-37); Albumin 3.1 g/dL (3.4-5.0); Alkaline Phosphatase 86 U/L (46-116); Anion Gap 5.3 mmol/L (3-11); BUN 15 mg/dL (7-18); Bilirubin, Total 0.5 mg/dL (0.2-1.0); CO2 28.7 mmol/L (21.0-32.0); CREATININE 0.6 mg/dL (0.70-1.30); Calcium 8.5 mg/dL (8.5-10.1); Chloride 90 mmol/L (98-107); Estimated GFR 102.56 (mL/min/1.73m2); Glucose 97 mg/dL (74-106); Potassium 4.6 mmol/L (3.5-5.1); Total Protein 7.7 g/dL (6.4-8.2)
[2023-08-16 17:53] LABS: Absolute Eosinophil Count 0.15 10^3/uL (0.0-0.7); Absolute Lymphocyte Count 2.44 10^3/uL (1.2-3.4); Absolute Monocyte Count 0.92 10^3/uL (0.1-0.8); Absolute Neutrophil Count 11.59 10^3/uL (1.2-6.7); Atypical Lymphocytes % 2 %; Metamyelocytes % 1
[2023-08-16 17:54] LABS: Diff Comment Manual Differential; Macrocytosis 1+
[2023-08-16] MEDS: Dexamethasone 10 MG/ML VIAL IVP (17:55)
[2023-08-16 17:56] LABS: Sodium 124 mmol/L (136-145)
[2023-08-16 17:59] LABS: NT-proBNP 845 pg/mL (<300); Troponin I < 50 ng/L (< or =60)
[2023-08-16] MEDS: Albuterol/Ipratropium 3 ML UPD VIAL 9 ML UPD (18:00)
[2023-08-16] MEDS: cefTRIAXone 1 GM/50 ML BAG IVPB (18:00)
--- NOTE | 2023-08-16 18:20 | DI.VRAD_ITS ---
PROCEDURE INFORMATION: Exam: XR Chest Exam date and time: 08/16/2023 17:32 Age: 72 years old Clinical indication: Other: Worsening cough, rhonchi TECHNIQUE: Imaging protocol: Radiologic exam of the chest. Views: 2 views. COMPARISON: CR XR CHEST 2V PA LATERAL 08/11/2023 16:56 FINDINGS: Tubes, catheters and devices: Multi lead cardiac device, satisfactory appearance. Lungs: Moderate left greater than right basilar opacity, similar to prior. Low lung volumes. Pleural spaces: Chronic appearing right worse than left pleural calcification, similar to prior. No pneumothorax. Heart/Mediastinum: Moderate cardiomegaly and vascular congestion, similar to prior. Bones/joints: No acute fracture. IMPRESSION: 1. Moderate cardiomegaly and vascular congestion, similar to prior. 2. Favor chronic mild left greater than right pleural fluid with adjacent atelectasis and or pneumonia, similar to prior. Dictated and Authenticated by: Hali Gannon MD. Ordering:CARL Valdez MD
[2023-08-16] MEDS: AZITHROMYCIN 500 MG in Normal Saline 250 ML 250 MG IVPB (18:25)
--- NOTE | 2023-08-16 19:10 | NUR.NOTE ---
50 ml of ceftriaxone given.Nursing Note:
--- NOTE | 2023-08-16 19:20 | W.PM.HP.N ---
Date of service: 08/16/23 Time of Service: 19:20 Assessment and Plan Assessment and plan (1) Left lower lobe pneumonia: Start date: 08/16/23 Status: Acute Assessment and plan: This is a 71-year-old gentleman with multiple medical problems and for overall health having recent exacerbation of respiratory symptoms responding to treatment for COPD exacerbation in the ED now returning with worsening symptoms. Seem to have a complication of possible left lower lobe pneumonia with increased effusions exacerbation of CHF as well as COPD exacerbation. Will be treated for all of these while hospitalized with adjustment of his medical therapy as discussed below. He was initiated on Rocephin and Zithromax which will be continued. Check procalcitonin with lactate being normal and no fever at this time indicating more aggressive therapy. He does not have sepsis. His treatment may be complicated long-term by his daily alcohol use as well as mild dementia. He is a DNR/DNI. Qualifiers: Pneumonia type: due to unspecified organism Qualified Code(s): J18.9 - Pneumonia, unspecified organism (2) COPD exacerbation: Start date: 08/16/23 Status: Acute Assessment and plan: Patient does have increased rhonchi and wheezing and will have low-dose Solu-Medrol initiated with continuation of his inhalers and more frequent nebulizer treatments while hospitalized. Treat his pneumonia and O2 supplementation as needed. CHF treatment may also help with respiratory symptoms. He is in no acute distress at the time of my exam. (3) CHF (congestive heart failure): Status: Chronic Assessment and plan: Patient BNP is not doubled but off baseline with increasing effusions and possible complication of left lower lobe infiltrate being treated with IV antibiotics. Will hold his spironolactone and continue Lasix IV twice daily to see if this improves his respiratory status with COPD exacerbation and pneumonia complicating with mild hypoxemia. He does also have slight hypercapnia which may be chronic though lactate does reveal a decrease in his pH with no chronic compensation and normal bicarb. Follow-up VBG in the morning. Qualifiers: Heart failure chronicity: chronic Heart failure type: diastolic Qualified Code(s): I50.32 - Chronic diastolic (congestive) heart failure (4) Hyponatremia: Status: Chronic Assessment and plan: Previously on daily sodium chloride tablets and does receive daily 24 ounces of beer which seems counterintuitive. He has not responded to fluid restriction in the past and is having no symptoms with his lower than normal sodium at 122. He is on spironolactone daily. Will trend labs and watch closely for symptoms as we diurese with Lasix IV consider treating if falls precipitously but with chronic hyponatremia and a symptomatic he is not at risk for complications as he drops below 1 20-1 15. Send urine and serum osmolality. (5) Hypertension: Status: Chronic Assessment and plan: Slightly low and being diuresed. Split dose metoprolol and monitor closely. Hold spironolactone and daily larger dose of metoprolol. Qualifiers: Hypertension type: primary hypertension Qualified Code(s): I10 - Essential (primary) hypertension (6) CHB (complete heart block): Status: Chronic Assessment and plan: Completely paced with cardiac monitoring discontinued at this time with shortage of telemetry and patient being a DNR/DNI with no symptoms of severe cardiovascular decompensation with negative troponins. His BNP is only mildly elevated we will follow-up echocardiogram. (7) Dementia: Status: Chronic Assessment and plan: Mild with limited to be continued. Qualifiers: Dementia behavioral or psychological symptom: with mood disturbance Dementia severity: moderate Dementia type: vascular dementia Qualified Code(s): F01.B3 - Vascular dementia, moderate, with mood disturbance History of Present Illness History of Present Illness Chief Complaint: Worsening cough seen in the ED 5 days ago for COPD exacerbation Narrative: This is a 72-year-old male patient who was seen in the ED 08/11/2023 for COPD exacerbation and treated with oral medication returning to the [facility] where he resides. At the [facility] he has fair performance of IADL activity and is not on oxygen. He does have mild memory issues and is morbidly obese with deconditioning. He had improvement when seen in the ED but since home with the [facility] he has had progressive worsening of cough and congestion. He has had no fever and no mention of productive cough. With worsening symptoms and hypoxemia on room air though this was still in the high 80% range, he was sent to the ED for evaluation and found to have worsening effusions by chest x-ray with question of left lower lobe infiltrate within his pleural effusion as well as positive lung findings by physical exam. He does have a history of probable right-sided CHF on spironolactone chronically with elevated BNP's. He did not have measured fever and was on 2 L of oxygen per nasal cannula when his baseline is room air. He was not tachypneic after treatments but had respiratory rate increased to 28 upon presentation. VBG did show slight CO2 retention but his bicarb was normal. He does have a history of chronic hyponatremia and his initial sodium was low at 122 with patient off his usual sodium tablets and is drinking 24 ounces of beer daily. He has never tried to stop drinking beer. He also has not responded to fluid restriction for the past. Has had no change in mentation or increased weakness but as stated is debilitated with some short-term memory issues on Namenda. His magnesium was found to be low and he will be repleted as he was initiated on Lasix IV for possible exacerbation of CHF with his exacerbation of COPD symptoms. His BNP was elevated from his baseline to 845 with his baseline more around 550. He did not have any significant acute edema but does have chronic lower extremity edema with his obesity. He does not complain of shortness of breath at the time I interviewed him but he did receive Lasix IV in the ED. His WBC was elevated at 15,000 and lactate was normal at 0.9. Procalcitonin is pending. Patient was initiated on Rocephin with Zithromax which will be continued as patient is admitted also for IV Lasix twice daily holding the usual dose of spironolactone. He is usually on a large dose of metoprolol and blood pressure was slightly soft in the ED with systolic below 100 therefore this was split into every 6 hours dose of 25 mg instead of once daily dose of 200 mg. Patient was more comfortable at the time I saw him after receiving his IV Lasix as mentioned. He does have chronic pain and will be continued on his fentanyl patch with ibuprofen as needed with normal renal functions. He is a DNR/DNI. Review of Systems Narrative: 13 point review of systems otherwise unrevealing or stable with patient being slightly poor historian with short-term memory loss. [facility] All Active Problems COPD exacerbation (Acute) Dementia (Chronic) Hyponatremia (Chronic) Pneumonia (Acute) CHF (congestive heart failure) (Chronic) Chronic hyponatremia (Acute) Shortness of breath (Acute) Nail dystrophy (Acute) Restrictive lung disease (Acute) Asthma (Chronic) Shortness of breath (Acute) CHB (complete heart block) (Chronic) had permanent pacemaker implanted 2017 for this Sebaceous cyst (Acute) Nasal obstruction (Acute) External nasal lesion (Acute) Hypertension (Chronic) Left lower lobe pneumonia (Acute) Bloating (Acute) Heme positive stool (Acute) Infected sebaceous cyst of skin (Acute) Trapped lung (Acute) Sacroiliitis (Acute) Depression (Chronic) Lymphedema (Acute) HTN (hypertension) with goal to be determined (Chronic) Obesity (Chronic) DNR (do not resuscitate) (Acute) Presence of cardiac pacemaker (Chronic) [employer]ent[employer] PPM MRI model L111 Serial # [id number] placed dual chamber 04/30/2017 for CHB at [facility]. 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 Most likely this is inflammatory tissue and not actually fluid. pt has had multiple taps. He was on a prolonged course of IV abx and has failed to resolve. This is a sequelae of this pericardial tamponade following disruption of his RA lead from pacemaker insertion. Hyponatremia, hypo-osmolarity, or hypo-osmolar hyponatremia Surgical History S/P laparoscopic cholecystectomy History of permanent cardiac pacemaker placement with subsequent repositioning Social History Smoking/Tobacco Use Status: Never Smoking risk assessment performed?: Yes Alcohol Intake: current Alcohol Intake frequency: 0-2 drinks per day Alcohol type: beer Housing: half-way Pets and animals: No Do you feel safe at home: Yes Do you feel safe in your relationship?: Yes Meds Allergies and Home Medications Allergies Allergy/AdvReac Type Severity Reaction Status Date / Time No Known Allergies Allergy Verified 08/16/23 19:43 Home Medications Medication Instructions Recorded Confirmed Type albuterol sulfate 90 mcg/actuation 2 inh inhalation TID 03/29/21 08/16/23 History breath activated powder inhaler calcium carbonate 1,000 mg PO Q6H PRN 03/29/21 08/16/23 History fluticasone propionate 50 1 spray intranasal BID 03/29/21 08/16/23 History mcg/actuation nasal spray,suspension pantoprazole 40 mg tablet,delayed 40 mg PO DAILY 03/29/21 08/16/23 History release polyethylene glycol 3350 17 gram 17 g PO DAILY PRN 03/29/21 08/16/23 History oral powder packet (Miralax) sennosides 8.6 mg-docusate sodium 2 tab-cap PO DAILY 03/29/21 08/11/23 History 50 mg tablet (Senexon-S) vitamin B complex (Ultra B-100 1 tab PO DAILY 03/29/21 08/16/23 History Complex ER tablet,extended release) metoprolol succinate 200 mg 200 mg PO DAILY 05/02/21 08/16/23 History tablet,extended release 24 hr melatonin 3 mg capsule 3 mg PO HS 05/10/21 08/16/23 History beer PO 10/18/21 06/18/23 History colestipol 1 gram tablet 2 g PO BID 12/06/21 08/16/23 History ipratropium 0.5 mg-albuterol 3 mg 3 ml inhalation BID PRN 03/12/22 08/11/23 History (2.5 mg base)/3 mL nebulization soln fentanyl 12 mcg/hr transdermal 1 patch transdermal Q72H 04/29/22 08/16/23 History patch spironolactone 25 mg tablet 100 mg PO DAILY 06/05/22 08/16/23 History dextromethorphan-guaifenesin 10 10 ml PO Q4H PRN 08/28/22 08/11/23 History mg-100 mg/5 mL oral liquid (Tussin DM) fluticasone fur. 200 mcg-umeclid 1 inh inhalation DAILY 08/28/22 08/16/23 History 62.5 mcg-vilant 25 mcg inhalat.powder (Trelegy Ellipta) magnesium gluconate 500 mg tablet 500 mg PO DAILY 08/28/22 08/16/23 History acetaminophen 500 mg tablet 1,000 mg PO DAILY 01/15/23 08/11/23 History (Tylenol Extra Strength) benzonatate 100 mg capsule 100 mg PO BID 03/27/23 08/16/23 History loratadine 10 mg tablet 10 mg PO DAILY 03/27/23 08/16/23 History fluticasone fur. 200 mcg-umeclid 1 inh inhalation DAILY 06/18/23 08/16/23 History 62.5 mcg-vilant 25 mcg inhalat.powder (Trelegy Ellipta) ipratropium 0.5 mg-albuterol 3 mg 3 ml inhalation Q12H PRN PRN 06/18/23 08/11/23 History (2.5 mg base)/3 mL nebulization soln hfvaiw-[id number]-tqhczfc 1 cap PO TID 06/18/23 08/16/23 History 5,000-17,000-24,000 unit capsule, delayed rel (Zenpep) memantine 5 mg tablet 5 mg PO BID 06/18/23 08/16/23 History sertraline 25 mg tablet 50 mg PO DAILY 06/18/23 08/16/23 History dupilumab 300 mg/2 mL subcutaneous 300 mg subcut Q2W 07/10/23 08/16/23 History pen injector (Dupixent) ibuprofen 200 mg tablet 200 mg PO BID PRN 07/10/23 08/16/23 History cholecalciferol (vitamin D3) 125 5,000 unit PO .weekly 08/11/23 08/11/23 History mcg (5,000 unit) tablet (Vitamin D3) sodium chloride 1gm 08/11/23 History Exam Narrative Exam Narrative: General: Patient appears older than stated age, short stature with morbid obesity. He is not tachypneic and in no acute distress. He does know that he is in the hospital but has some problems with short-term memory. He also knows that he lives in the [facility]. He is oriented to person, place and time at the time of my interview. He does take some prompting. HEENT: Normocephalic with coarsened facial features of large creases and both nostrils over the lower nose with an enlarged nose. Eyes with pupils equal and react to light symmetrically, extraocular movement intact and sclera anicteric. Oropharynx with poor dentition and moist mucosa. Patient has increased facial hair. Neck: Supple without JVD. Back: Kyphotic without CVA tenderness. Lungs: Bronchovesicular breath sounds diffusely with fair to poor aeration, rhonchi diffusely and slight expiratory wheeze with increased expiratory phase. No focalizing rales. Coarse crackles sparsely throughout. Decreased aeration at the bases. Chest: Palpable pacemaker left anterior chest. Heart: Regular rate and rhythm with quiet systolic murmur left sternal border. No rubs or gallops. Abdomen: Obese contour, soft and nontender to palpation with no palpable hepatosplenomegaly. Bowel sounds positive all quadrants. No guarding or rebound. Genitalia/rectal: Exam deferred. Extremities: Nonpitting edema lower extremities with obesity and chronic arthritic changes of the joints. Good capillary refill. No clubbing or cyanosis. Skin: Normal color, warm and dry. Neuro: Cranial nerves II through XII grossly intact, no focalizing motor deficits and no tremor. Psych: Slightly euphoric affect and normal mood. No abnormal thought processes but at times patient seems to confabulate. Remote memory intact with recent memory less intact. Results Imaging Imaging Studies: EXAM: XR CHEST 2V PA LATERAL CLINICAL HISTORY: cough, copd TECHNIQUE: 2D digital imaging was performed of the chest. Two images were obtained. PA and lateral views were obtained. COMPARISON: CR,XR XR CHEST 2V PA LATERAL from 08/28/[address] CHEST/ABD/PEL WO from 09/16/2022 FINDINGS: MEDIASTINUM: Normal. HEART: Heart is at the upper limits of normal to mildly enlarged. There is a cardiac monitoring device in place. PULMONARY VASCULATURE: Normal. LUNGS: Chronic changes are again seen in the lung bases. No superimposed/new infiltrate is seen. PLEURAL SPACE: The patient's chronic left pleural effusion is stable. No significant right pleural effusion is seen. Right-sided pleural calcifications are again seen. BONE:Within normal limits for the patient's age. OTHER FINDINGS:Normal. IMPRESSION: No significant change in appearance of the chest x-ray since 08/28/2022. Please see the above discussion for complete details. Admission Date: 02/03/23 : 1950 EXAM: Comprehensive 2D, Doppler, and color-flow Echocardiogram Patient Location: Out-Patient Track Supervisor: Abdi Gross RDCS (AE) Indications: sob, complete heart marquise, pacemaker Other Information Study Quality: Technically Limited. Technically limited study due to inability to position patient, inability to use adequate compression due to pain. Conclusion Technically very limited and suboptimal study There is probably concentric left ventricular hypertrophy. Overall LV function appears within the range of normal. There is stage I diastolic dysfunction. Segmental wall motion could not be accurately assessed Right ventricle is not well-visualized Atria were not well-visualized. There is mild aortic stenosis. Mean gradient was 16 mmHg Dilated ascending aorta Labs 08/16/23 17:25 08/16/23 22:34 Labs: Laboratory Results - last 24 hr 08/16/23 17:25 WBC 15.25 H RBC 3.67 L Hgb 12.4 L Hct 36.6 L MCV 100 H MCH 33.8 H MCHC 33.9 RDW 11.6 L Plt Count 200 MPV 11.2 H Immature Gran % See Differential Neutrophils % 76.0 Lymphocytes % 14.0 Atypical Lymphs % 2 Monocytes % 6.0 Eosinophils % 1.0 Basophils % 0.0 Metamyelocytes % 1 Nucleated RBC % 0.0 Absolute Neutrophils 11.59 H Absolute Lymphocytes 2.44 Absolute Monocytes 0.92 H Absolute Eosinophils 0.15 Absolute Basophils 0.00 RBC Morphology See Below Macrocytosis 1+ PT 10.9 INR 1.1 APTT 26.3 Sodium 124 L* Potassium 4.6 Chloride 90 L Carbon Dioxide 28.7 Anion Gap 5.3 BUN 15 Creatinine 0.6 L Est GFR (CKD-EPI 2020) 102.56 Glucose 97 Calcium 8.5 Total Bilirubin 0.5 AST 25 ALT 32 Alkaline Phosphatase 86 Troponin I < 50 NT-Pro-B Natriuret Pep 845 H Total Protein 7.7 Albumin 3.1 L Last Vital Signs Temp 36.2 C L 08/16/23 16:48 Pulse 64 08/16/23 19:01 Resp 20 08/16/23 19:01 BP 96/69 L 08/16/23 19:01 Pulse Ox 95 08/16/23 18:53 Time Spent Time spent with Patient: >75 minutes Time was spent: preparing to see the patient(eg.review tests), obtaining and/or reviewing separately otained hiistory, ordering medications,tests, procedures, indepentently interpreting results, counseling the patient and care coordination
[2023-08-16] MEDS: Furosemide 40 MG/4 ML VIAL IVP (19:37)
[2023-08-16 20:17] LABS: BE (Venous) 2 mmol/L (-2-3); HCO3 (Venous) 28 mmol/L (23-28); O2 Sat (Venous) 81 %; TCO2 (Venous) 26 mmol/L (24-29); pCO2 (Venous) 55 mmHg (41-51); pH (Venous) 7.32 (7.31-7.41); pO2 (Venous) 51 mmHg
[2023-08-16 20:18] LABS: COVID-19 PCR Negative (Negative); Influenza A PCR Negative (Negative); Influenza B PCR Negative (Negative); RSV PCR Negative (Negative)
[2023-08-16 20:19] LABS: Source Nasopharynx
[2023-08-16 20:29] LABS: Magnesium 1.7 mg/dL (1.8-2.4)
[2023-08-16 20:43] LABS: TSH (W/Ref FT4) 1.44 uIU/mL (0.36-3.74)
[2023-08-16 21:47] LABS: MRSA PCR Negative (Negative)
[2023-08-16 22:29] LABS: Troponin I < 50 ng/L (< or =60)
[2023-08-16] MEDS: Albuterol 2.5 MG/3 ML INH SOLN VIAL UPD (22:30)
[2023-08-16] MEDS: Enoxaparin 40 MG/0.4 ML SYR SC (22:39)
[2023-08-16] MEDS: Metoprolol 25 MG TAB PO (22:39)
[2023-08-16 22:40] LABS: Lactate 0.9 mmol/L (0.6-1.4)
[2023-08-16 22:57] LABS: Anion Gap 9.2 mmol/L (3-11); BUN 16 mg/dL (7-18); CO2 23.8 mmol/L (21.0-32.0); CREATININE 0.6 mg/dL (0.70-1.30); Calcium 8.7 mg/dL (8.5-10.1); Chloride 89 mmol/L (98-107); Estimated GFR 102.56 (mL/min/1.73m2); Glucose 128 mg/dL (74-106); Potassium 4.7 mmol/L (3.5-5.1)
[2023-08-16] MEDS: MAGNESIUM SULFATE 2 GM/50 ML BAG IVINF (22:58)
[2023-08-16] MEDS: Normal Saline Flush 10 ML SYR IVP (22:58)
[2023-08-16 23:00] LABS: Sodium 122 mmol/L (136-145)
[2023-08-17] VITALS (15 sets, daily range): BP systolic 96–106; BP diastolic 60–87; PULSE 62–85; RESP 2–20; TEMP 36–36.8; O2SAT 90–98
[2023-08-17] MEDS: Normal Saline Flush 10 ML SYR IVP ×4 (00:45→21:37)
[2023-08-17 02:15] LABS: Anion Gap 10.5 mmol/L (3-11); BUN 16 mg/dL (7-18); CO2 23.5 mmol/L (21.0-32.0); CREATININE 0.6 mg/dL (0.70-1.30); Calcium 8.8 mg/dL (8.5-10.1); Chloride 89 mmol/L (98-107); Estimated GFR 102.56 (mL/min/1.73m2); Glucose 135 mg/dL (74-106); Potassium 4.8 mmol/L (3.5-5.1)
[2023-08-17 02:17] LABS: Sodium 123 mmol/L (136-145)
[2023-08-17 06:41] LABS: BE (Venous) 6 mmol/L (-2-3); HCO3 (Venous) 32 mmol/L (23-28); O2 Sat (Venous) 34 %; TCO2 (Venous) 29 mmol/L (24-29); pH (Venous) 7.33 (7.31-7.41); pO2 (Venous) 24 mmHg
[2023-08-17 06:42] LABS: HCT 38.5 % (40.0-50.0); HGB 13.1 g/dL (13.5-17.5); MCH 34.3 pg (27.0-33.0); MCV 101 fL (80-95); MPV 12.4 fL (8.0-11.0); Platelet Count 101 10^3/uL (130-400); RBC 3.82 10^6/uL (4.36-5.78); RDW 11.8 % (11.8-14.1); RDW-SD 43.5 fL; WBC 12.23 10^3/uL (4.4-10.8)
[2023-08-17 06:44] LABS: pCO2 (Venous) 61 mmHg (41-51)
[2023-08-17 07:00] LABS: ALT 33 U/L (16-63); AST 29 U/L (15-37); Albumin 3.2 g/dL (3.4-5.0); Alkaline Phosphatase 89 U/L (46-116); Anion Gap 6.6 mmol/L (3-11); BUN 14 mg/dL (7-18); Bilirubin, Total 0.6 mg/dL (0.2-1.0); CO2 30.4 mmol/L (21.0-32.0); CREATININE 0.7 mg/dL (0.70-1.30); Calcium 9.1 mg/dL (8.5-10.1); Chloride 90 mmol/L (98-107); Glucose 123 mg/dL (74-106); Magnesium 2.2 mg/dL (1.8-2.4); Potassium 5.1 mmol/L (3.5-5.1); Sodium 127 mmol/L (136-145); Total Protein 8.2 g/dL (6.4-8.2)
[2023-08-17] MEDS: Albuterol/Ipratropium 3 ML UPD VIAL UPD ×4 (07:20→19:47)
[2023-08-17 07:26] LABS: Procalcitonin < 0.1 ng/mL
[2023-08-17] MEDS: Budesonide/Formoterol 160/4.5 6 GM 60 PUFF INH IH ×2 (07:51→19:51)
[2023-08-17] MEDS: Tiotropium Bromide-Respimat 10 PUFF INH 2 PUFF IH (07:51)
[2023-08-17] MEDS: Furosemide 20 MG/2 ML VIAL IVP (08:16)
[2023-08-17] MEDS: Colestipol 1 GM TAB 2 GM PO ×2 (08:17→20:15)
[2023-08-17] MEDS: Vitamins B Comp w/C TAB 1 TAB PO (08:18)
[2023-08-17] MEDS: Sertraline 25 MG TAB 50 MG PO (08:18)
[2023-08-17] MEDS: Memantine 5 MG TAB PO ×2 (08:19→20:16)
[2023-08-17] MEDS: Magnesium Gluconate 500 MG TAB PO (08:19)
[2023-08-17] MEDS: Pantoprazole 40 MG TABCR PO (08:19)
[2023-08-17] MEDS: Benzonatate 100 MG CAP PO ×2 (08:19→20:16)
[2023-08-17] MEDS: Loratidine 10 MG TAB PO (08:19)
[2023-08-17] MEDS: Metoprolol 25 MG TAB PO ×3 (08:32→21:37)
[2023-08-17] MEDS: methylPREDNISolone SUCC 40 MG VIAL IVP ×2 (08:32→21:35)
[2023-08-17] MEDS: Polyethylene Glycol 3350 17 GM PACKET PO (08:32)
[2023-08-17 08:42] LABS: BE (Venous) 5 mmol/L (-2-3); HCO3 (Venous) 30 mmol/L (23-28); O2 Sat (Venous) 49 %; TCO2 (Venous) 28 mmol/L (24-29); pCO2 (Venous) 53 mmHg (41-51); pH (Venous) 7.37 (7.31-7.41); pO2 (Venous) 29 mmHg
--- NOTE | 2023-08-17 10:52 | INITIAL_ITS ---
Date of service: 08/17/23 Time of Service: 10:52 Care Management Initial Assmt Initial Assessment Reason for Hospitalization: Pneumonia, COPD, CHB Functional Status/Living Situation Patient Presentation: Tim was sleeping each time CM attempted to meet with him. CM plans to check back in with Tim tomorrow. Town of Residence: [place] Resides with: Other (SNF/[facility]) Significant Other/Family: Local Natural Supports: Per chart review: His daughterAdriana is his main support person. Employment Status: Disabled Instrumental Activities of Daily Living (ADLs): Requires support (Lives in a senior living facility.) Medications Medication Management: No Issues/Barriers identified Advance Directives Advance Directives: Do you have an Advance Directive: N 08/16/23 20:18 AD On File at [facility]: N 08/16/23 20:18 Date Asked 08/16/23 08/16/23 20:18 AD Date Reviewed COLST On File at [facility] Yes 12/04/21 08:47 COLST Date Scanned 06/21/21 12/04/21 08:47 Code Status Resuscitation Status DNR/DNI Portal Pt does not currently have a portal and education provided: No Portal Education: Other (No access) Insurance Coverage/Financial Issues Insurance: Medicaid Medicare ACO Member: No Care Team Visit Care Team Role Provider Type Monalisa Dong Primary Care Provider NON-[facility] STAFF PHYSICIAN José Miguel Coello MD Emergency Provider [facility] STAFF PHYSICIAN Mykel Ramos Admit Provider NON-[facility] STAFF PHYSICIAN Attending Provider Discharge Potential Discharge Needs: Other (Coordinated return to the [facility]) Anticipated Barriers to Discharge: None Identified Patient/Family Education Needs: Review discharge instructions, discuss Ask Me Three Transportation: RCT (W/C van vs. EMS) Plan: Anticipate Tim will discharge back to the [facility] when medically ready for discharge with a plan to follow up with community/ facility providers. Transportation is dependent on his mobility at the time of discharge. CM will follow continue to follow and support discharge planning considerations. PFSH All Active Problems COPD exacerbation (Acute) Dementia (Chronic) Hyponatremia (Chronic) Pneumonia (Acute) CHF (congestive heart failure) (Chronic) Chronic hyponatremia (Acute) Shortness of breath (Acute) Nail dystrophy (Acute) Restrictive lung disease (Acute) Asthma (Chronic) Shortness of breath (Acute) CHB (complete heart block) (Chronic) had permanent pacemaker implanted 2017 for this Sebaceous cyst (Acute) Nasal obstruction (Acute) External nasal lesion (Acute) Hypertension (Chronic) Left lower lobe pneumonia (Acute) Bloating (Acute) Heme positive stool (Acute) Infected sebaceous cyst of skin (Acute) Trapped lung (Acute) Sacroiliitis (Acute) Depression (Chronic) Lymphedema (Acute) HTN (hypertension) with goal to be determined (Chronic) Obesity (Chronic) DNR (do not resuscitate) (Acute) Presence of cardiac pacemaker (Chronic) [employer]ent[employer] PPM MRI model L111 Serial # [id number] placed dual chamber 04/30/2017 for CHB at [facility]. 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 Most likely this is inflammatory tissue and not actually fluid. pt has had multiple taps. He was on a prolonged course of IV abx and has failed to resolve. This is a sequelae of this pericardial tamponade following disruption of his RA lead from pacemaker insertion. Hyponatremia, hypo-osmolarity, or hypo-osmolar hyponatremia Surgical History S/P laparoscopic cholecystectomy History of permanent cardiac pacemaker placement with subsequent repositioning Social History Smoking/Tobacco Use Status: Never Smoking risk assessment performed?: Yes Alcohol Intake: current Alcohol Intake frequency: 0-2 drinks per day Alcohol type: beer Housing: assisted Pets and animals: No Do you feel safe at home: Yes Do you feel safe in your relationship?: Yes SDOH(Care Management) Screening Will the Patient Participate in the Screening?: Declined to provide
--- NOTE | 2023-08-17 13:08 | W.PM.PROGNOT ---
Date of Service Date of service: 08/17/23 Time of Service: 13:08 Assessment and Plan Assessment and plan (1) Left lower lobe pneumonia: Start date: 08/16/23 Status: Acute Assessment and plan: continue azithromycin, ceftriaxone, duoneb treatments, steroids, and LABA/LAMA/ICS; currently on room air but may need supplemental oxygen at night for suspected HOLLY. Qualifiers: Pneumonia type: due to unspecified organism Qualified Code(s): J18.9 - Pneumonia, unspecified organism (2) COPD exacerbation: Start date: 08/16/23 Status: Acute Assessment and plan: as above. (3) CHF (congestive heart failure): Status: Chronic Assessment and plan: unclear whether HFPEF or HFREF, continue fluid restriction for hyponatremia, continue lasix, monitor UO and daily wts (not done today), monitor daily labs, and check echo on Friday Qualifiers: Heart failure chronicity: chronic Heart failure type: diastolic Qualified Code(s): I50.32 - Chronic diastolic (congestive) heart failure (4) Hyponatremia: Status: Chronic Assessment and plan: improving at 122 > 127 now. spironolactone on hold. If his spironolactone is resumed this should be given w/ a loop diuretic. (5) Hypertension: Status: Chronic Assessment and plan: BP has been on the low side and Dr. Ramos changed patient's Toprol XL 200 mg to lopressor 25 mg q6h w/ holding parameters. spironolactone on hold. Patient is on lasix 20 mg bid. He seems euvolemic i.e. no rales, no pedal edema, so I will hold lasix for now, recheck labs in the morning along w/ echo. Qualifiers: Hypertension type: primary hypertension Qualified Code(s): I10 - Essential (primary) hypertension (6) CHB (complete heart block): Status: Chronic Assessment and plan: Completely paced with cardiac monitoring discontinued at this time with shortage of telemetry and patient being a DNR/DNI with no symptoms of severe cardiovascular decompensation with negative troponins. His BNP is only mildly elevated we will follow-up echocardiogram. (7) Dementia: Status: Chronic Assessment and plan: Mild with limited to be continued. Qualifiers: Dementia behavioral or psychological symptom: with mood disturbance Dementia severity: moderate Dementia type: vascular dementia Qualified Code(s): F01.B3 - Vascular dementia, moderate, with mood disturbance Subjective Subjective Interval history since last seen: Mr Danilo Mera says that his breathing is improved compared to yesterday. He is now able to talk in complete sentences w/out dyspnea. He is coughing up purulent sputum. He coughed some into a specimen cup but left it on the table, unclear how long it was sitting there before submitted. he is now on room air at rest w/ SPO2 93% Exam Narrative Exam Narrative: Obese white male receiving his DuoNeb treatment when I walked into the room Lungs: diffuse end expiratory wheezes, particularly over bases, no rales Heart: RRR, no murmur Abdomen: obese, soft, nontender Legs: no pitting edema, but chronic venous stasis skin changes. Objective Last Vital Signs Temp 36.8 C 08/17/23 11:35 Pulse 62 08/17/23 12:56 Resp 16 08/17/23 12:56 BP 96/60 L 08/17/23 11:35 Pulse Ox 93 08/17/23 12:56 Laboratory Results - last 24 hr 08/16/23 08/16/23 08/16/23 17:25 19:25 20:10 WBC 15.25 H RBC 3.67 L Hgb 12.4 L Hct 36.6 L MCV 100 H MCH 33.8 H MCHC 33.9 RDW 11.6 L Plt Count 200 MPV 11.2 H Immature Gran % See Differential Neutrophils % 76.0 Lymphocytes % 14.0 Atypical Lymphs % 2 Monocytes % 6.0 Eosinophils % 1.0 Basophils % 0.0 Metamyelocytes % 1 Nucleated RBC % 0.0 Absolute Neutrophils 11.59 H Absolute Lymphocytes 2.44 Absolute Monocytes 0.92 H Absolute Eosinophils 0.15 Absolute Basophils 0.00 RBC Morphology See Below Macrocytosis 1+ PT 10.9 INR 1.1 APTT 26.3 VBG pH 7.32 VBG pCO2 55 H VBG pO2 51 VBG HCO3 28 VBG Total CO2 26 VBG O2 Saturation 81 VBG Base Excess 2 VBG Lactate Sodium 124 L* Potassium 4.6 Chloride 90 L Carbon Dioxide 28.7 Anion Gap 5.3 BUN 15 Creatinine 0.6 L Est GFR (CKD-EPI 2020) 102.56 Glucose 97 Calcium 8.5 Magnesium 1.7 L Total Bilirubin 0.5 AST 25 ALT 32 Alkaline Phosphatase 86 Troponin I < 50 < 50 NT-Pro-B Natriuret Pep 845 H Total Protein 7.7 Albumin 3.1 L Procalcitonin TSH 1.44 COVID-19 Source Nasopharynx SARS-CoV-2 (PCR) Negative Influenza Type A (PCR) Negative Influenza Type B (PCR) Negative RSV (PCR) Negative MRSA (TEM-PCR) 08/16/23 08/16/23 08/17/23 20:20 22:34 01:45 WBC RBC Hgb Hct MCV MCH MCHC RDW Plt Count MPV Immature Gran % Neutrophils % Lymphocytes % Atypical Lymphs % Monocytes % Eosinophils % Basophils % Metamyelocytes % Nucleated RBC % Absolute Neutrophils Absolute Lymphocytes Absolute Monocytes Absolute Eosinophils Absolute Basophils RBC Morphology Macrocytosis PT INR APTT VBG pH VBG pCO2 VBG pO2 VBG HCO3 VBG Total CO2 VBG O2 Saturation VBG Base Excess VBG Lactate 0.9 Sodium 122 L* 123 L* Potassium 4.7 4.8 Chloride 89 L 89 L Carbon Dioxide 23.8 23.5 Anion Gap 9.2 10.5 BUN 16 16 Creatinine 0.6 L 0.6 L Est GFR (CKD-EPI 2020) 102.56 102.56 Glucose 128 H 135 H Calcium 8.7 8.8 Magnesium Total Bilirubin AST ALT Alkaline Phosphatase Troponin I NT-Pro-B Natriuret Pep Total Protein Albumin Procalcitonin TSH COVID-19 Source SARS-CoV-2 (PCR) Influenza Type A (PCR) Influenza Type B (PCR) RSV (PCR) MRSA (TEM-PCR) Negative 08/17/23 08/17/23 06:35 08:38 WBC 12.23 H RBC 3.82 L Hgb 13.1 L Hct 38.5 L MCV 101 H MCH 34.3 H MCHC 34.0 RDW 11.8 Plt Count 101 L MPV 12.4 H Immature Gran % Neutrophils % Lymphocytes % Atypical Lymphs % Monocytes % Eosinophils % Basophils % Metamyelocytes % Nucleated RBC % Absolute Neutrophils Absolute Lymphocytes Absolute Monocytes Absolute Eosinophils Absolute Basophils RBC Morphology Macrocytosis PT INR APTT VBG pH 7.33 7.37 VBG pCO2 61 H* 53 H VBG pO2 24 29 VBG HCO3 32 H 30 H VBG Total CO2 29 28 VBG O2 Saturation 34 49 VBG Base Excess 6 H 5 H VBG Lactate Sodium 127 L Potassium 5.1 Chloride 90 L Carbon Dioxide 30.4 Anion Gap 6.6 BUN 14 Creatinine 0.7 Est GFR (CKD-EPI 2020) 97.90 Glucose 123 H Calcium 9.1 Magnesium 2.2 Total Bilirubin 0.6 AST 29 ALT 33 Alkaline Phosphatase 89 Troponin I NT-Pro-B Natriuret Pep Total Protein 8.2 Albumin 3.2 L Procalcitonin < 0.1 TSH COVID-19 Source SARS-CoV-2 (PCR) Influenza Type A (PCR) Influenza Type B (PCR) RSV (PCR) MRSA (TEM-PCR) PAWSS Have you Been Recently Intoxicated or Drunk Within the Last 30 days?: No Have you Ever Experienced Previous Episodes of Alcohol Withdrawal?: No Have you ever Experienced Withdrawal Seizures?: No Have you ever Experienced Delirium Tremens(DT)s?: No Have you ever undergone Alcohol Rehabilitation Treatment (i.e, inpt ot outpatient treatment programs)?: No Have you ever Experienced Blackouts?: No Have you ever Combined Alcohol with other Downers within the last 90 days?: No Have you ever Combined Alcohol with any other Substance of Abuse during the last 90 days?: No Positive Blood Alcohol level on Presentation? [PCS.BAL]: No Evidence of Increased Autonomic Activity (i.e. HR>120, tremor, sweating, agitation, nausea)?: No Result: 0 Time Spent with Patient Time Spent with Patient: 35-49 minutes Time was spent: preparing to see the patient(eg.review tests), ordering medications,tests, procedures, referring, communicating with other health manager critical care, indepentently interpreting results, counseling the patient and care coordination
[2023-08-17 16:19] LABS: Osmolality, Urine 347 mOsm/kg (150-1150)
[2023-08-17 16:28] LABS: Osmolality Serum 259 mOsm/kg (275-295)
[2023-08-17] MEDS: cefTRIAXone 1 GM/50 ML BAG IVPB (17:08)
[2023-08-17] MEDS: AZITHROMYCIN 500 MG in Normal Saline 250 ML 250 MG IVPB (18:18)
[2023-08-17] MEDS: Enoxaparin 40 MG/0.4 ML SYR SC (20:16)
[2023-08-17] MEDS: Melatonin 3 MG TAB PO (20:16)
[2023-08-17] MEDS: Nystatin POWDER 60 GM JAR TP (22:06)
[2023-08-18] VITALS (14 sets, daily range): BP systolic 110–124; BP diastolic 70–85; PULSE 68–87; RESP 8–19; TEMP 36–36.6; O2SAT 89–99
[2023-08-18] MEDS: Metoprolol 25 MG TAB PO ×4 (02:53→19:42)
[2023-08-18 06:41] LABS: Abs Immature Grans 0.12 10^3/uL (0.0-0.06); Absolute Lymphocyte Count 1.04 10^3/uL (1.2-3.4); Absolute Neutrophil Count 10.84 10^3/uL (1.2-6.7); Basophils % 0.2 %; HCT 35.9 % (40.0-50.0); HGB 12.4 g/dL (13.5-17.5); Immature Grans % 0.9 %; Lymphocytes % 8.2 %; MCH 34.3 pg (27.0-33.0); MCHC 34.5 % (32.0-36.0); MCV 99 fL (80-95); MPV 11.1 fL (8.0-11.0); Monocytes % 5.1 %; Neutrophils % 85.6 %; Platelet Count 199 10^3/uL (130-400); RBC 3.62 10^6/uL (4.36-5.78); RDW-SD 43.8 fL; WBC 12.66 10^3/uL (4.4-10.8)
[2023-08-18 06:44] LABS: Absolute Basophil Count 0.03 10^3/uL (0.0-0.2); Absolute Monocyte Count 0.65 10^3/uL (0.1-0.8)
[2023-08-18 07:10] LABS: Anion Gap 5.6 mmol/L (3-11); BUN 21 mg/dL (7-18); CO2 30.4 mmol/L (21.0-32.0); CREATININE 0.8 mg/dL (0.70-1.30); Calcium 8.8 mg/dL (8.5-10.1); Chloride 92 mmol/L (98-107); Estimated GFR 94.03 (mL/min/1.73m2); Glucose 138 mg/dL (74-106); NT-proBNP 797 pg/mL (<300); Potassium 4.2 mmol/L (3.5-5.1); Sodium 128 mmol/L (136-145)
[2023-08-18] MEDS: Albuterol/Ipratropium 3 ML UPD VIAL UPD ×4 (07:53→20:30)
[2023-08-18] MEDS: Tiotropium Bromide-Respimat 10 PUFF INH 2 PUFF IH (08:01)
[2023-08-18] MEDS: Budesonide/Formoterol 160/4.5 6 GM 60 PUFF INH IH ×2 (08:01→20:28)
[2023-08-18] MEDS: Normal Saline Flush 10 ML SYR IVP ×2 (08:11→19:43)
[2023-08-18] MEDS: Colestipol 1 GM TAB 2 GM PO ×2 (08:11→19:42)
[2023-08-18] MEDS: Loratidine 10 MG TAB PO (08:11)
[2023-08-18] MEDS: Ibuprofen 600 MG TAB PO (08:12)
[2023-08-18] MEDS: Sertraline 25 MG TAB 50 MG PO (08:12)
[2023-08-18] MEDS: Magnesium Gluconate 500 MG TAB PO (08:12)
[2023-08-18] MEDS: predniSONE 20 MG TAB 40 MG PO (08:12)
[2023-08-18] MEDS: Pantoprazole 40 MG TABCR PO (08:12)
[2023-08-18] MEDS: Benzonatate 100 MG CAP PO ×2 (08:12→19:42)
[2023-08-18] MEDS: Vitamins B Comp w/C TAB 1 TAB PO (08:12)
[2023-08-18] MEDS: Memantine 5 MG TAB PO ×2 (08:13→19:42)
[2023-08-18] MEDS: Nystatin POWDER 60 GM JAR TP ×2 (08:13→19:43)
[2023-08-18] MEDS: fentaNYL 12 MCG PATCH TD (08:14)
--- NOTE | 2023-08-18 08:56 | PDOC.CMPRO ---
Date of service: 08/18/23 Time of Service: 08:57 Care Management Progress Note Progress Note Text Progress Note Text: Tim was sitting up in bed when C<M met with him. When asked how he was doing he answered well not too good I guess. Tim informed CM that he has been at the [facility] for about 4 years. He was no longer able to remain at home alone because of his lungs. 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 Tim is not but does have a daughter who lives in [place]. He also had 2 sons but they are both . Tim informed CM that until about a week before he came to the hospital he was ambulatory and independent. He is now bed bound and requires a lift for transfers. Discharge Potential Discharge Needs: Other (return to SNF) Anticipated Barriers to Discharge: None Identified Patient/Family Education Needs: Review discharge instructions, discuss Ask Me Three Transportation: RCT Plan: Anticipate Tim will discharge back to the [facility] when medically ready for discharge with a plan to follow up with community/ facility providers. Transportation is dependent on his mobility at the time of discharge. CM will continue to follow and support discharge planning considerations. SDOH(Care Management) Screening Will the Patient Participate in the Screening?: Declined to provide
--- NOTE | 2023-08-18 09:19 | W.PM.PROGNOT ---
Date of Service Date of service: 08/18/23 Time of Service: 09:20 Assessment and Plan Assessment and plan (1) Left lower lobe pneumonia: Start date: 08/16/23 Status: Acute Assessment and plan: On RA this AM and 2l/min O2 at night d/t suspected HOLLY. Will continue Zithromax IV , Rocephin IV and oral steroids On duoneb treatments and LABA/LAMA/ICS On tessalon perles Will add mucinex Qualifiers: Pneumonia type: due to unspecified organism Qualified Code(s): J18.9 - Pneumonia, unspecified organism (2) COPD exacerbation: Start date: 08/16/23 Status: Acute Assessment and plan: as above. (3) CHF (congestive heart failure): Status: Chronic Assessment and plan: Echo pending today to determine HFPEF VS HFREF, continue fluid restriction for hyponatremia hold lasix as patient still appears uvolemic monitor UO and daily weights BMP in AM Qualifiers: Heart failure chronicity: chronic Heart failure type: diastolic Qualified Code(s): I50.32 - Chronic diastolic (congestive) heart failure (4) Hyponatremia: Status: Chronic Assessment and plan: improving at 122 > 128 now. and as above Spironolactone on hold but resume with a loop diuretic if needed. (5) Hypertension: Status: Chronic Assessment and plan: Continue lopressor 25 mg q6h w/ holding parameters instead of patient's Toprol XL 200 mg d/t soft BPs . Spironolactoneand lasix still on hold considering restarting s/p echo results Qualifiers: Hypertension type: primary hypertension Qualified Code(s): I10 - Essential (primary) hypertension (6) CHB (complete heart block): Status: Chronic Assessment and plan: Completely paced on admission and asymptomatic with negative troponins. His BNP was 797 on admission and has received IV furosemide. Echocardiogram pending (7) Dementia: Status: Chronic Assessment and plan: Mild with limited to be continued No behavioral symptoms at this time discussed with Dr. Molina . Qualifiers: Dementia behavioral or psychological symptom: with mood disturbance Dementia severity: moderate Dementia type: vascular dementia Qualified Code(s): F01.B3 - Vascular dementia, moderate, with mood disturbance (8) Discharge planning issues: Status: Resolved Assessment and plan: On lovenox SC for DVT prophylaxis PT consult in progress considering returning to the [facility] in AM Discussed with Dr. Molina Subjective Subjective Patient reports: no new complaints, feels better, tolerating liquids well, tolerating a regular diet, voiding w/o difficulty, flatus and afebrile; denies still having pain, diarrhea, nausea, vomiting or shortness of breath Exam Narrative Exam Narrative: Constitutional The patient is in bed comfortable on RA without acute distress and has an obese body habitus Neuro:alert and oriented X 3 Resp: clear upper lungs bilaterally, coarse right base and clear and diminished left base, wet cough, clearing secretions Cardio: regular rhythm, S1, S2, no murmur, positive radial and pedal pulses GI: Abdomen is large not distended, soft and non tender, bowel sounds are present Integumentary: scattered bruises to needle puncture sites Psych: RASS 0, congruent mood and normal affect. Objective Last Vital Signs Temp 36.0 C L 08/18/23 07:47 Pulse 75 08/18/23 08:08 Resp 16 08/18/23 08:08 BP 120/81 08/18/23 07:47 Pulse Ox 92 08/18/23 08:08 Laboratory Results - last 24 hr 08/16/23 08/16/23 08/18/23 20:10 21:50 06:23 WBC 12.66 H RBC 3.62 L Hgb 12.4 L Hct 35.9 L MCV 99 H MCH 34.3 H MCHC 34.5 RDW 12.0 Plt Count 199 D MPV 11.1 H Immature Gran % 0.9 Neutrophils % 85.6 Lymphocytes % 8.2 Monocytes % 5.1 Eosinophils % 0.0 Basophils % 0.2 Nucleated RBC % 0.0 Absolute Neutrophils 10.84 H Absolute Lymphocytes 1.04 L Absolute Monocytes 0.65 Absolute Eosinophils 0.00 Absolute Basophils 0.03 Sodium 128 L Potassium 4.2 Chloride 92 L Carbon Dioxide 30.4 Anion Gap 5.6 BUN 21 H Creatinine 0.8 Est GFR (CKD-EPI 2020) 94.03 Glucose 138 H Serum Osmolality 259 L Calcium 8.8 NT-Pro-B Natriuret Pep 797 H Urine Osmolality 347 PAWSS Have you Been Recently Intoxicated or Drunk Within the Last 30 days?: No Have you Ever Experienced Previous Episodes of Alcohol Withdrawal?: No Have you ever Experienced Withdrawal Seizures?: No Have you ever Experienced Delirium Tremens(DT)s?: No Have you ever undergone Alcohol Rehabilitation Treatment (i.e, inpt ot outpatient treatment programs)?: No Have you ever Experienced Blackouts?: No Have you ever Combined Alcohol with other Downers within the last 90 days?: No Have you ever Combined Alcohol with any other Substance of Abuse during the last 90 days?: No Positive Blood Alcohol level on Presentation? [PCS.BAL]: No Evidence of Increased Autonomic Activity (i.e. HR>120, tremor, sweating, agitation, nausea)?: No Result: 0 Time Spent with Patient Time Spent with Patient: >50 minutes Time was spent: preparing to see the patient(eg.review tests), obtaining and/or reviewing separately otained hiistory, ordering medications,tests, procedures, referring, communicating with other health director long term care, indepentently interpreting results, counseling the patient and care coordination
--- NOTE | 2023-08-18 13:00 | DI.US_ITS ---
APPROVED REPORT EXAM: Comprehensive 2D, Doppler, and color-flow Echocardiogram Patient Location: In-Patient Room/Bed: 229 Investor: Abdi Gross RDCS (AE) Indications: CHF Other Information Technically limited study due to body habitus, uncooperative patient, inability to position patient, patient has pain in imaging area due to scar tissue. Conclusion Technically very limited study Concentric left ventricular hypertrophy. Ejection fraction is probably normal Aortic valve is sclerotic Wall motion Left Ventricle Left ventricle is not well visualized. Very technically liimited exam due to patient's pain in imagin g area. Unable to assess LV wall thickness. Right Ventricle Right ventricle is not well visualized. Right ventricular systolic function could not be assessed. Atria Left atrium is not well visualized. Right atrium is not well visualized. Aortic Valve The Aortic valve is sclerotic. Mitral Valve Mitral valve is not well visualized. Tricuspid Valve Tricuspid valve is not well visualized. Mild tricuspid regurgitation appears to be present. Pulmonic Valve Pulmonic valve is not well visualized. Great Vessels The aortic root is normal in size. The ascending aorta is moderately dilated. Aortic arch is not well visualized. The IVC was not visualized. 2D Dimensions Ao Root d 3.41 cm M: 3.1 - 3.7 Ao Asc Diam d 4.09 cm M: 2.6 - 3.4 Aortic Valve LVOT Diam s 2.05 cm Pulmonary Valve PV Vmax 0.77 (0.5-1.5 m/s) PV Peak Grad 2.4 mmHg PV Mean Darrel 0.54 m/s PV Mean Grad 1.4 mmHg Tricuspid Valve TR Vmax 2.70 m/s TR Peak Grad 29.2 mmHg
--- NOTE | 2023-08-18 13:54 | PT.INIE ---
PT Notes Visit Reasons: Left lower lobe Pneumonia,COPD Exacerbation with H Inpatient Initial Physical Therapy Evaluation Date: 08/18/2023 Referring Doctor: Reddy Kwong MD PT Orders: PT CONSULT: Fall Safety Assessment Precautions: Fall. Standard precautions. Activity as tolerated. Patient Profile/Admitting Diagnosis: Patient admitted for medical management of PNA, COPD exacerbation, CHF, hyponatremia, HTN, complete heart block, and dementia. PMHX: All Active Problems COPD exacerbation (Acute) Dementia (Chronic) Hyponatremia (Chronic) Pneumonia (Acute) CHF (congestive heart failure) (Chronic) Chronic hyponatremia (Acute) Shortness of breath (Acute) Nail dystrophy (Acute) Restrictive lung disease (Acute) Asthma (Chronic) Shortness of breath (Acute) CHB (complete heart block) (Chronic) had permanent pacemaker implanted 2017 for this Sebaceous cyst (Acute) Nasal obstruction (Acute) External nasal lesion (Acute) Hypertension (Chronic) Left lower lobe pneumonia (Acute) Bloating (Acute) Heme positive stool (Acute) Infected sebaceous cyst of skin (Acute) Trapped lung (Acute) Sacroiliitis (Acute) Depression (Chronic) Lymphedema (Acute) HTN (hypertension) with goal to be determined (Chronic) Obesity (Chronic) DNR (do not resuscitate) (Acute) Presence of cardiac pacemaker (Chronic) [employer] P[employer] MRI model L111 Serial # [id number] placed dual chamber 04/30/2017 for CHB at [facility]. 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 Most likely this is inflammatory tissue and not actually fluid. pt has had multiple taps. He was on a prolonged course of IV abx and has failed to resolve. This is a sequelae of this pericardial tamponade following disruption of his RA lead from pacemaker insertion. Hyponatremia, hypo-osmolarity, or hypo-osmolar hyponatremia Surgical History S/P laparoscopic cholecystectomy History of permanent cardiac pacemaker placement with subsequent repositioning Social History/Home Situation: Resident of the [facility]. Modified independent with bed<>wheelchair, wheelchair<>toilet transfers using FWW. Main mode of mobility inside facility is wheelchair. Equipment Owned/DME: Wheelchair, SPC, FWW Subjective: Tim said that PT stopped working with him because his L knee need surgery and the SNF PT could no longer progress him beyond independent transfers until surgery is done. Objective: General Observation: Resting in bed. IV access through R UE. Mental Status: Alert and oriented as to person, time and place. Able to follow single-step commands. Pain: Chronic L knee pain ROM: Right Upper Extremity: Shoulder Flexion WFL. Shoulder abduction WFL. Elbow flexion WFL. Wrist flexion WFL. Functional opening and closing of hand WFL. Left Upper Extremity: Shoulder Flexion lacks the last 50% of AROM. Shoulder abduction lacks the last 50% of AROM. Elbow flexion WFL. Wrist flexion WFL. Functional opening and closing of hand WFL. Right Lower Extremity: Hip flexion allows up to 90 degrees. Hip abduction WFL. Knee flexion 20 degrees to 90 degrees. Ankle dorsiflexion to neutral only. Ankle plantarflexion WFL. Left Lower Extremity: Hip flexion allows up to 90 degrees. Hip abduction WFL. Knee flexion 30 degrees to 90 degrees. Ankle dorsiflexion to neutral only. Ankle plantarflexion WFL. Strength: Right Upper Extremity: Shoulder flexors 4-/5. Shoulder abductors 4-/5. Elbow flexors 4-/5. Elbow extensors 4-/5. Territory Manager strong. Left Upper Extremity: Shoulder flexors 3-/5. Shoulder abductors 3-/5. Elbow flexors 4-/5. Elbow extensors 4-/5. Territory Manager strong. Right Lower Extremity: Hip flexors 3-/5. Hip abductors 3-/5. Knee flexors 3-/5. Knee extensors 3-/5. Ankle dorsiflexors 3-/5. Ankle plantarflexors 3-/5. Left Lower Extremity: Hip flexors 3-/5. Hip abductors 3-/5. Knee flexors 3-/5. Knee extensors 3-/5. Ankle dorsiflexors 3-/5. Ankle plantarflexors 3-/5. Bed Mobility/Transfers: Minimal cueing provided for use of B hands as needed for support, movement sequence, AD management, and posture to reduce fall risk and minimize pain report supine-sit: moderate assist sit-stand: moderate assist of 2 using STEDY lift stand-sit: moderate assist of 2 using STEDY lift Gait: Unable to test Balance: Static Sitting: Good Dynamic Sitting: Fair Static Standing: Unable Dynamic Standing: Unable Special Tests: Mobility Limitations Standardized Measure [facility] AM-PAC 6 clicks Basic Mobility Inpatient Short Form: Raw Score: 9 CMS Score: 81% impairment Informed Consent/Education: Patient instructed in purpose of PT consult and plan of care. Assessment: Patient is a 72 year old male referred to physical therapy services with functional mobility decline with decreased ability to sit up and transfer. Activity tolerance very limited as patient attempted to stand up from edge of bed using STEDY lift x 3 with report of significant fatigue. He requires skilled PT intervention to address the following functional impairments and deficits: 1. Decreased strength to B UE/LE major muscle groups 2. Impaired sitting/standing balance 3. Impaired activity tolerance 4. Limitation of joint range of motion in L shoulder and B hips/ankles 5. Shortness of breath 6. fearfulness of falling Impairments are contributing to the following functional limitations: 1. Decline in bed mobility skills 2. Decline in transfer skills 3. Difficulty with ambulation without assistive device and physical assistance 4. Increased completion time for mobility ADL performance 5. Increased risk for falls 6. Difficulty with managing steps alone safely Patient is assessed [place] a [id number] moderate complexity based on the following: History: 72-year-old male with past medical history as indicated above Examination: Demonstrable impairment in strength, balance, and mobility level with underlying impairments and functional limitations as exhibited above as well as deficit score of 81% utilizing the [facility] Mobility Inpatient Short Form Presentation: Evolving Decision Makin moderate complexity Goals: Goals X1 week 1. Supine-Sit : supervision 2. Sit-Supine : supervision 3. Sit-Stand : supervision 4. Stand-Sit : supervision 5. Bed-Chair : supervision FWW 6. Chair-Bed : supervision FWW 7. Gait : 15 feet with FWW and supervision, with demonstration of good safety awareness Plan of Care/Treatment Plan: 1-2x/day, 7 days/week x 1 week. Plan of care has been reviewed with the MANAGER MASSAGE DEPARTMENT providing the service under Physical Therapy direction. Initiate Physical Therapy intervention for strengthening, bed mobility, transfers, balance training, use of assistive device. DISCHARGE RECOMMENDATIONS: Return to SNF when medically clerared TREATMENT CODE/TIME: 00270 x 20 minutes for 1 unit, 81281 x 26 minutes for 2 units (13:54-14:42). Thank you for the opportunity to participate in the care of this patient. Palmira Malloy PT, DPT, CLT [facility] [place], [place]
--- NOTE | 2023-08-18 14:49 | PHA.REVIEW2 ---
Pharmacy Admission Review Admission Clinical Review Admission Pharmacy Review: COPD exacerbation (Acute) Pneumonia (Acute) Left lower lobe pneumonia (Acute) No Known Allergies Allergy (Verified 08/16/23 19:43) Resuscitation Status DNR/DNI Height 5 ft 11 in Weight 110.4 kg Comments Comments/Follow Ups: Watch VS, sodium, labs, for culture results and for med changes. Pharmacy Admission Review Renal Dosing Renal Dosing: BUN 21 mg/dL (7-18) H 08/18/23 06:23 Creatinine 0.8 mg/dL (0.70-1.30) 08/18/23 06:23 Medications needing adjustments: Reviewed (Crcl ~84 mL/min current meds okay.) Anticoagulation Anticoagulation: Hgb 12.4 g/dL (13.5-17.5) L 08/18/23 06:23 Hct 35.9 % (40.0-50.0) L 08/18/23 06:23 Plt Count 199 10^3/uL (130-400) D 08/18/23 06:23 INR 1.1 (0.9-1.1) 08/16/23 17:25 Creatinine 0.8 mg/dL (0.70-1.30) 08/18/23 06:23 DVT Prophylaxis: Reviewed Medications: Enoxaparin Opiate Usage Evaluate Pain Scale/Pains Meds: Reviewed Scheduled Bowel Reg ordered if on Opiates?: No (has PRN meds ordered) Relevant Labs Relevant Labs: Sodium 128 mmol/L (136-145) L 08/18/23 06:23 Potassium 4.2 mmol/L (3.5-5.1) 08/18/23 06:23 Chloride 92 mmol/L (98-107) L 08/18/23 06:23 Magnesium 2.2 mg/dL (1.8-2.4) 08/17/23 06:35 Electrolytes, C-Reactive P, ESR: Reviewed DM Control DM Control: N/A Cardiac Review Cardiac Review: Troponin I < 50 ng/L (< or =60) 08/16/23 20:10 NT-Pro-B Natriuret Pep 797 pg/mL (<300) H 08/18/23 06:23 BP, HR, EF%: Reviewed QTc Review QTc: Reviewed (QTc 473 on admission) IV to PO Switch IV Medications: Reviewed Home Meds Home Med List reviewed: Intervened (discontinued duplicates (trelegy ellipta and ipratropium/albuterol nebs)) Relevent Home Meds Not ordered & why?: dextromethorphan/guaifenesin (PRN, has guaifenesin ordered), dupilumab (q2 weeks), trelegy ellipta (non-formulary, has budesonide/formoterol and tiotropium subbed for this), fluticasone nasal spray, senna/docusate, spironolactone (being held per H&P) Current Meds Current Medication Order Review: Intervened (Adjusted metoprolol, pantoprazole, fentanyl and ceftriaxone per supervisor intermediates time policy. Adjusted two PRN meds so they crossed over to pyxis, and one of those I also adjusted the dosage form so a tablet didn't have to be split for the dose.) Pharmacy Antibiotic Review Pharmacy Antibiotic Activity: C/S review and Reviewed, no change Comments: Blood cultures no growth at 24 hours, sputum culture growing normal jesi. Ceftriaxone and azithromycin continue for pneumonia. Comments Comments/Follow Ups: Watch VS, sodium, labs, for culture results and for med changes.
[2023-08-18] MEDS: cefTRIAXone 1 GM/50 ML BAG IVPB (16:11)
[2023-08-18] MEDS: AZITHROMYCIN 500 MG in Normal Saline 250 ML 250 MG IVPB (17:49)
[2023-08-18] MEDS: Enoxaparin 40 MG/0.4 ML SYR SC (19:42)
[2023-08-18] MEDS: Melatonin 3 MG TAB PO (19:42)
[2023-08-18] MEDS: guaiFENesin 600 MG TABCR PO (19:42)
[2023-08-19] VITALS (7 sets, daily range): BP systolic 106–113; BP diastolic 68–88; PULSE 70–88; RESP 2–20; TEMP 35.9–36; O2SAT 90–98
[2023-08-19] MEDS: Metoprolol 25 MG TAB PO ×3 (02:00→14:29)
[2023-08-19 06:50] LABS: Absolute Basophil Count 0.01 10^3/uL (0.0-0.2); Absolute Eosinophil Count 0.01 10^3/uL (0.0-0.7); Absolute Monocyte Count 1.32 10^3/uL (0.1-0.8); Basophils % 0.1 %; Eosinophils % 0.1 %; HCT 33.7 % (40.0-50.0); HGB 11.2 g/dL (13.5-17.5); Immature Grans % 0.9 %; Lymphocytes % 15.6 %; MCH 33.3 pg (27.0-33.0); MCHC 33.2 % (32.0-36.0); MCV 100 fL (80-95); MPV 10.8 fL (8.0-11.0); Monocytes % 11.4 %; Neutrophils % 71.9 %; Platelet Count 195 10^3/uL (130-400); RBC 3.36 10^6/uL (4.36-5.78); RDW-SD 43.9 fL; WBC 11.56 10^3/uL (4.4-10.8)
[2023-08-19 06:52] LABS: Absolute Neutrophil Count 8.31 10^3/uL (1.2-6.7)
[2023-08-19 07:02] LABS: Anion Gap 5.7 mmol/L (3-11); BUN 18 mg/dL (7-18); CO2 30.3 mmol/L (21.0-32.0); CREATININE 0.7 mg/dL (0.70-1.30); Calcium 8.3 mg/dL (8.5-10.1); Chloride 96 mmol/L (98-107); Glucose 109 mg/dL (74-106); Potassium 3.7 mmol/L (3.5-5.1); Sodium 132 mmol/L (136-145)
[2023-08-19] MEDS: Albuterol/Ipratropium 3 ML UPD VIAL UPD ×2 (07:33→12:51)
[2023-08-19] MEDS: Budesonide/Formoterol 160/4.5 6 GM 60 PUFF INH IH (07:35)
[2023-08-19] MEDS: Tiotropium Bromide-Respimat 10 PUFF INH 2 PUFF IH (07:36)
[2023-08-19] MEDS: Vitamins B Comp w/C TAB 1 TAB PO (08:08)
[2023-08-19] MEDS: Colestipol 1 GM TAB 2 GM PO (08:08)
[2023-08-19] MEDS: predniSONE 20 MG TAB 40 MG PO (08:08)
[2023-08-19] MEDS: Loratidine 10 MG TAB PO (08:08)
[2023-08-19] MEDS: Magnesium Gluconate 500 MG TAB PO (08:08)
[2023-08-19] MEDS: guaiFENesin 600 MG TABCR PO (08:08)
[2023-08-19] MEDS: Memantine 5 MG TAB PO (08:08)
[2023-08-19] MEDS: Benzonatate 100 MG CAP PO (08:08)
[2023-08-19] MEDS: Pantoprazole 40 MG TABCR PO (08:08)
[2023-08-19] MEDS: Sertraline 25 MG TAB 50 MG PO (08:09)
[2023-08-19] MEDS: Normal Saline Flush 10 ML SYR IVP (08:17)
--- NOTE | 2023-08-19 09:11 | PDOC.CMPRO ---
Date of service: 08/19/23 Time of Service: 09:12 Care Management Progress Note Discharge Potential Discharge Needs: Other (return to SNF) Anticipated Barriers to Discharge: None Identified Patient/Family Education Needs: Review discharge instructions, discuss Ask Me Three Transportation: RCT Plan: Anticipate Tim will discharge back to the [facility] when medically ready for discharge with a plan to follow up with community/ facility providers. Transportation is dependent on his mobility at the time of discharge. CM will continue to follow and support discharge planning considerations. SDOH(Care Management) Screening Will the Patient Participate in the Screening?: Declined to provide
--- NOTE | 2023-08-19 09:40 | DSE_ITS ---
Date of service: 08/19/23 Time of Service: 09:40 DS: Diagnosis Discharge Diagnosis (1) Left lower lobe pneumonia: Status: Acute (2) COPD exacerbation: Status: Acute (3) CHF (congestive heart failure): Status: Chronic (4) Hyponatremia: Status: Chronic (5) Hypertension: Status: Chronic (6) CHB (complete heart block): Status: Chronic (7) Dementia: Status: Chronic (8) Discharge planning issues: Status: Resolved Discharge Plan Disposition Patient Disposition: Senior Living Facility(SNF) Condition: Improving Discharge Details Reason For Visit: Left lower lobe Pneumonia,COPD Exacerbation with H Admit Date/Time: 08/16/23 19:42 Admit Provider: Mykel Ramos Attending Provider: Mykel Ramos Primary Care Provider: Monalisa Dong Hospital Course Hospital Course: This 73-year-old male patient with an extensive past medical history including but not limited to 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 The patient had been seen on 08/11/2023 in the ED and was treated for COPD exacerbation with positive outcomes and discharged home. Labs in the ED were remarkable for a pCO2 of 55 with a VBG pH of 7.32, with WBC of 15.25, sodium of 124, chloride 90, slightly elevated BNP at 845. Chest x-ray showed slight increased opacity in the right lung base compared to prior examination, left lung base opacity as well as persistent chronic right pleural effusion. Hospitalist admitted the patient for evaluation and management of left lower lobe pneumonia with increased effusions, exacerbation of CHF and COPD exacerbation to the medical surgical floor During the stay the patient continued to receive IV ceftriaxone and IV azithromycin. Procalcitonin and lactate were negative for sepsis. Hyponatremia was treated with fluid restriction and home dose of sodium chloride intake. The patient was initiated treatment with IV Lasix which was held due to lower sodium levels. The patient seems to receive 24 ounces of beer daily at his living facility which might have been a factor in his hyponatremia. The patient will be discharged on Lasix 20 mg oral twice daily as well as an adjusted dose of spironolactone to 50 mg daily. Further adjustment to be completed by the patient's primary care provider. Patient will be also discharged on a course of azithromycin and cefpodoxime as well as a burst of prednisone to complete the therapy initiated inpatient. An echocardiogram was completed, as per report below a quantitative value for the left ventricular ejection fraction was not able to be obtained but is most likely normal. Echocardigram report: Technically limited study due to body habitus, uncooperative patient, inability to position patient, patient has pain in imaging area due to scar tissue. Conclusion Technically very limited study Concentric left ventricular hypertrophy. Ejection fraction is probably normal Aortic valve is sclerotic Left Ventricle Left ventricle is not well visualized. Very technically liimited exam due to patient's pain in imaging area. Unable to assess LV wall thickness. Physical therapy was completed during the stay and recommendations are to return to SNF with subacute rehab/PT services. The continuation of incentive spirometer and the Vibrapep are recommended upon discharge.The patient will have to complete a BMP on Friday with follow-up by the PCP. Discussed with Dr. Molina Home Meds and New Rx's Prescriptions: New prednisone 20 mg Tablet 40 mg PO DAILY Qty: 6 0RF azithromycin 500 mg tablet 500 mg PO DAILY Qty: 2 0RF cefpodoxime 200 mg tablet 200 mg PO BID Qty: 10 0RF Rx Instructions: must administer with a meal/food furosemide [Lasix] 20 mg tablet 20 mg PO BID Qty: 60 0RF Continued fentanyl 12 mcg/hr patch 72 hour 1 patch transdermal Q72H ibuprofen 200 mg tablet 200 mg PO BID PRN Dupixent Pen 300 mg/2 mL pen injector 300 mg subcut Q2W loratadine 10 mg tablet 10 mg PO DAILY benzonatate 100 mg capsule 100 mg PO BID albuterol sulfate 90 mcg/actuation aerosol powdr breath activated 2 inh inhalation TID Rx Instructions: *and* q4h PRN calcium carbonate 215 mg calcium (500 mg) tablet,chewable 1,000 mg PO Q6H PRN fluticasone propionate 50 mcg/actuation spray,suspension 1 spray intranasal BID Rx Instructions: administer into each nostril Ultra B-100 Complex Tablet Extended Release 1 tab PO DAILY pantoprazole 40 mg tablet,delayed release (DR/EC) 40 mg PO DAILY polyethylene glycol 3350 [Miralax] 17 gram powder in packet 17 g PO DAILY PRN sennosides-docusate sodium [Senexon-S] 8.6-50 mg tablet 2 tab-cap PO DAILY sertraline 25 mg tablet 50 mg PO DAILY metoprolol succinate 200 mg tablet extended release 24 hr 200 mg PO DAILY Rx Instructions: Hold for HR < 60 memantine 5 mg tablet 5 mg PO BID Trelegy Ellipta 200-62.5-25 mcg blister with device 1 inh inhalation DAILY ipratropium-albuterol 0.5 mg-3 mg(2.5 mg base)/3 mL solution for nebulization 3 ml inhalation Q12H PRN PRN Zenpep 5,000-17,000- 24,000 unit capsule,delayed release(DR/EC) 1 cap PO TID melatonin 3 mg capsule 3 mg PO HS beer PO Rx Instructions: may have 2 beers by mouth daily 12 or 16oz,only 1 beer if 24oz container colestipol 1 gram tablet 2 g PO BID dextromethorphan-guaifenesin [Tussin DM] 10-100 mg/5 mL Liquid 10 ml PO Q4H PRN magnesium gluconate 500 mg Tablet 500 mg PO DAILY cholecalciferol (vitamin D3) [Vitamin D3] 125 mcg (5,000 unit) tablet 5,000 unit PO .weekly sodium chloride 1gm Rx Instructions: 1gm tablets PO QD for hypo-osmolality and hyponatremia Changed spironolactone 25 mg tablet 50 mg PO DAILY Qty: 0 0RF Patient Comments: 06/05/22 on med list from [facility] acetaminophen [Tylenol Extra Strength] 500 mg tablet 1,000 mg PO Q12H Qty: 0 0RF Discharge Instructions Stand Alone Forms: Nursing Discharge Form Activity:: Activity as Tolerated Equipment/Supplies:: No Equipment Needed Diet:: heart healthy no salt restriction Discharge Orders Discharge Orders: Discharge Order (Routine); Ordered 08/19/23 Ordered By: Dinora Koch Other Ambulatory Orders: Basic Metabolic Panel (Routine) Timeframe: 20230819 Facility: [facility] - Location: Laboratory Outpatient - [facility] Ordered By: Dinora Koch Basic Metabolic Panel (Routine) Timeframe: 20230822 Facility: [facility] - Location: Laboratory Outpatient - [facility] Ordered By: Dinora Koch DS: Summary Time Spent with Patient providing and/or coordinating discharge services: Greater than 30 minutes Status at Discharge Functional status at discharge: wheelchair bound Overall status at discharge: patient is progressing back to baseline Mental Status: mental status grossly normal Speech and Movement: speech and movement normal Mood: congruent mood Affect: normal affect Quality:SDOH Health Related Social Needs: 2 No Data to Display Exam Narrative Exam Narrative: Constitutional The patient is in bed comfortable on RA without acute distress and has an obese body habitus Neuro:alert and oriented X 3 Resp: clear upper lungs bilaterally, coarse right base clearer with coughing, diminished left base Cardio: regular rhythm, S1, S2, positive radial and pedal pulses GI: Abdomen is large not distended, soft and non tender, bowel sounds are present Integumentary: scattered bruises to needle puncture sites, no open wound noticed to exposed skin Psych: RASS 0, congruent mood and normal affect. Psych Mental Status: mental status grossly normal Speech and Movement: speech and movement normal Mood: congruent mood Affect: normal affect DS: Data Vitals/I&O Vitals and I&O: Vital Signs Temperature 35.9 C L 08/19/23 07:29 Temperature Source Temporal Artery Scan 08/19/23 07:29 Pulse 75 08/19/23 07:44 Pulse Rhythm Regular 08/19/23 08:34 Pulse 65 08/16/23 21:25 Respiratory Rate 16 08/19/23 07:33 Respiratory Effort Normal, Non-Labored 08/19/23 08:34 Respiratory Depth Normal 08/19/23 08:34 Respiratory Pattern Normal 08/19/23 08:34 Blood Pressure 106/68 08/19/23 07:29 Blood Pressure Mean 110 08/16/23 21:24 Pulse Oximetry 96 08/19/23 07:44 Oxygen Delivery Method Room Air 08/19/23 07:33 Oxygen Flow Rate 0 08/19/23 07:33 Pain Level 6 08/19/23 07:29 Intake & Output 08/18/23 08/18/23 08/19/23 11:59 23:59 11:59 Intake Total 540 / 540 Output Total 300 / 600 300 / 600 400 / 400 Balance -300 / -60 240 / -60 -400 / -400 Weight 110.4 kg 110 kg Intake: IV 300 / 300 Oral 240 / 240 Output: Urine 300 / 600 300 / 600 400 / 400 Other: Urine Color Yellow Yellow Light Eri Urine Appearance Clear Clear Clear Urine Odor None Comment Mixed with stool, unsure of color, appearance, or amount. Stool Size Moderate Stool Characteristics Liquid Brown Voiding Methods Diaper Incontinent Data Completed and Pending Labs on day of discharge: Labs from last 24 hours 08/19/23 06:28 WBC 11.56 H RBC 3.36 L Hgb 11.2 L Hct 33.7 L MCV 100 H MCH 33.3 H MCHC 33.2 RDW 12.0 Plt Count 195 MPV 10.8 Immature Gran % 0.9 Neutrophils % 71.9 Lymphocytes % 15.6 Monocytes % 11.4 Eosinophils % 0.1 Basophils % 0.1 Nucleated RBC % 0.0 Absolute Neutrophils 8.31 H Absolute Lymphocytes 1.80 Absolute Monocytes 1.32 H Absolute Eosinophils 0.01 Absolute Basophils 0.01 Sodium 132 L Potassium 3.7 Chloride 96 L Carbon Dioxide 30.3 Anion Gap 5.7 BUN 18 Creatinine 0.7 Est GFR (CKD-EPI 2020) 97.90 Glucose 109 H Calcium 8.3 L Preliminary micro results at discharge 08/16/23 17:25 Blood Culture - Preliminary Blood NO GROWTH 48 HOURS 08/16/23 17:25 Blood Culture - Preliminary Blood NO GROWTH 48 HOURS 08/17/23 13:03 Sputum Culture - Preliminary Sputum Normal Kylee PFSH All Active Problems (Updated 08/19/23 @ 09:42 by Dinora Koch APRN) COPD exacerbation (Acute) Dementia (Chronic) Hyponatremia (Chronic) Pneumonia (Acute) CHF (congestive heart failure) (Chronic) Chronic hyponatremia (Acute) Shortness of breath (Acute) Nail dystrophy (Acute) Restrictive lung disease (Acute) Asthma (Chronic) Shortness of breath (Acute) CHB (complete heart block) (Chronic) had permanent pacemaker implanted 2017 for this Sebaceous cyst (Acute) Nasal obstruction (Acute) External nasal lesion (Acute) Hypertension (Chronic) Left lower lobe pneumonia (Acute) Bloating (Acute) Heme positive stool (Acute) Infected sebaceous cyst of skin (Acute) Trapped lung (Acute) Sacroiliitis (Acute) Depression (Chronic) Lymphedema (Acute) HTN (hypertension) with goal to be determined (Chronic) Obesity (Chronic) DNR (do not resuscitate) (Acute) Presence of cardiac pacemaker (Chronic) SIVI Essentio PPM MRI model L111 Serial # [id number] placed dual chamber 04/30/2017 for CHB at [facility]. 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 Most likely this is inflammatory tissue and not actually fluid. pt has had multiple taps. He was on a prolonged course of IV abx and has failed to resolve. This is a sequelae of this pericardial tamponade following disruption of his RA lead from pacemaker insertion. Hyponatremia, hypo-osmolarity, or hypo-osmolar hyponatremia Surgical History S/P laparoscopic cholecystectomy History of permanent cardiac pacemaker placement with subsequent repositioning Social History Smoking/Tobacco Use Status: Never Smoking risk assessment performed?: Yes Alcohol Intake: current Alcohol Intake frequency: 0-2 drinks per day Alcohol type: beer Housing: jail Pets and animals: No Do you feel safe at home: Yes Do you feel safe in your relationship?: Yes Time Spent with Patient Time Spent with Patient: 45-69 minutes Time was spent: preparing to see the patient(eg.review tests), obtaining and/or reviewing separately otained hiistory, ordering medications,tests, procedures, referring, communicating with other health day care director, indepentently interpreting results, counseling the patient and care coordination
[2023-08-19] MEDS: Furosemide 20 MG TAB PO (09:56)
[2023-08-19] MEDS: Spironolactone 50 MG TAB PO (09:56)
--- NOTE | 2023-08-19 11:08 | PTTR_ITS ---
PT Notes Visit Reasons: Left lower lobe Pneumonia,COPD Exacerbation with H Inpatient Initial Physical Therapy Treatment Note Date: 08/19/2023 Precautions: Fall. Standard precautions. Activity as tolerated. Subjective: Agreeable to continuing with working on standing up and weight bearing this morning. Objective: General Observation: Resting in bed. IV access through R UE. Needed assistance with pericare, LNE Briseyda came in and helped. Mental Status: Alert and oriented as to person, time and place. Able to follow single-step commands. Pain: Chronic L knee pain Bed Mobility/Transfers: Minimal cueing provided for use of B hands as needed for support, movement sequence, AD management, and posture to reduce fall risk and minimize pain report supine-sit: stand by assist with HOB at 45 degrees sit-stand: minimal assist using STEDY lift stand-sit: minimal assist using STEDY liftt Gait: Unable to test Balance: Static Sitting: Good Dynamic Sitting: Fair Static Standing: Fair Dynamic Standing: Unable Assessment: Patient is a 72 year old male referred to physical therapy services with functional mobility decline with decreased ability to sit up and transfer. Activity tolerance very limited as patient attempted to stand up from edge of bed using STEDY lift x 3 with report of significant fatigue. He requires skille d PT intervention to address the following functional impairments and deficits: 1. Decreased strength to B UE/LE major muscle groups 2. Impaired sitting/standing balance 3. Impaired activity tolerance 4. Limitation of joint range of motion in L shoulder and B hips/ankles 5. Shortness of breath 6. fearfulness of falling Impairments are contributing to the following functional limitations: 1. Decline in bed mobility skills 2. Decline in transfer skills 3. Difficulty with ambulation without assistive device and physical assistance 4. Increased completion time for mobility ADL performance 5. Increased risk for falls 6. Difficulty with managing steps alone safely Plan of Care/Treatment Plan: Continue PT servicesat SNF to regain prior level of function with modified independence in transfers using FWW upon return. DISCHARGE RECOMMENDATIONS: Return to SNF when medically cleared TREATMENT CODE/TIME: 05749 x 30 minutes for 2 units (11:08-11:39).
--- NOTE | 2023-08-19 14:31 | CMDISCH_ITS ---
Date of service: 08/19/23 Time of Service: 14:31 LACE Index Scoring Tool Questions: Length of Stay (in days): 3 Was the patient admitted via the E.D.?: Yes Comorbidities: Congestive Heart Failure, Chronic Pulmonary Disease and Dementia E.D. Visits: 2 Answers: Total Score: 13 Risk of Readmission: High Risk Care Management Discharge Plan Reason for Hospitalization: Pneumonia Discharge Plan: Tim will discharge back to the [facility] with a plan to follow up with community/ facility providers. Transportation will be via RCT wheelchair van. Patient/Family Education Needs: Review discharge instructions, discuss Ask Me Three Services Needed at Discharge: Retirement Facility SDOH Health Related Social Needs: No Data to Display
== END 2023-08-19 14:42 | disposition skilled nursing facility (03) | DRG 190 ==
LOC: ER 20:18 → MS 21:35
PROVIDERS: Internal Medicine; Nurse Practitioner Acute Care; Admitting Provider Family Medicine; Emergency Provider Emergency Medicine; PCP Legal Medicine; Visit Provider Family Medicine
DX: J44.0 Chronic obstructive pulmonary disease with (acute) lower respiratory infection (principal); J18.9 Pneumonia, unspecified organism; E87.1 Hypo-osmolality and hyponatremia; I44.2 Atrioventricular block, complete; F01.B3 Vascular dementia, moderate, with mood disturbance; I50.32 Chronic diastolic (congestive) heart failure; J44.1 Chronic obstructive pulmonary disease with (acute) exacerbation; I11.0 Hypertensive heart disease with heart failure; Z95.0 Presence of cardiac pacemaker; R09.02 Hypoxemia; E66.01 Morbid (severe) obesity due to excess calories; E83.42 Hypomagnesemia; Z66 Do not resuscitate; F32.A Depression, unspecified; I89.0 Lymphedema, not elsewhere classified; I25.10 Atherosclerotic heart disease of native coronary artery without angina pectoris; L71.1 Rhinophyma; Z68.33 Body mass index [BMI] 33.0-33.9, adult
CPT/HCPCS: 00123; 36415; 80048; 80053; 82805; 83935; 84145; 85027; 87040; 87637; 87641; 93005; 94640; 96365; 96368; 96375; 97162; 97530; 99285; J1650; 71046; 83605; 83735; 83880; 83930; 84443; 84484; 85025; 85610; 85730; 87070; 87205; 93010; 93306; 94664; 94667; 94668; 94760; 99223; 99232; 99233; 99239; J0456; J0696; J1100; J1940; J1941; J2919; J3475; J7512; J7613; J7620

== ENCOUNTER 2023-08-25 18:32 | Outpatient (REF) | payer SELFPAY ==
[2023-08-25 18:34] LABS: Abs Immature Grans 0.13 10^3/uL (0.0-0.06); Absolute Eosinophil Count 0.44 10^3/uL (0.0-0.7); Basophils % 0.2 %; Eosinophils % 3.4 %; HCT 39.1 % (40.0-50.0); Lymphocytes % 20.3 %; MCH 33.7 pg (27.0-33.0); MCHC 33.2 % (32.0-36.0); MCV 101 fL (80-95); MPV 11.7 fL (8.0-11.0); Monocytes % 6.6 %; Neutrophils % 68.5 %; Platelet Count 228 10^3/uL (130-400); RBC 3.86 10^6/uL (4.36-5.78); RDW 12.1 % (11.8-14.1); RDW-SD 45.4 fL; WBC 12.82 10^3/uL (4.4-10.8)
[2023-08-25 18:36] LABS: Absolute Basophil Count 0.03 10^3/uL (0.0-0.2); Absolute Monocyte Count 0.85 10^3/uL (0.1-0.8); Absolute Neutrophil Count 8.78 10^3/uL (1.2-6.7)
[2023-08-25 18:53] LABS: Hemoglobin A1C 5.9 % (<5.7)
[2023-08-25 19:14] LABS: Iron 87 ug/dL (65-175); Total Iron Binding Capacity 226 ug/dL (250-450); Transferrin Sat 38 % (20-55)
[2023-08-25 19:41] LABS: ALT 53 U/L (16-63); AST 23 U/L (15-37); Albumin 3.2 g/dL (3.4-5.0); Alkaline Phosphatase 73 U/L (46-116); BUN 8 mg/dL (7-18); Bilirubin, Total 0.28 mg/dL (0.2-1.0); CREATININE 0.6 mg/dL (0.70-1.30); Calcium 8.5 mg/dL (8.5-10.1); Chloride 93 mmol/L (98-107); Estimated GFR 102.56 (mL/min/1.73m2); Folate 9.2 ng/mL (8.6-20.0); Glucose 94 mg/dL (74-106); Magnesium 1.7 mg/dL (1.8-2.4); Potassium 3.7 mmol/L (3.5-5.1); Sodium 132 mmol/L (136-145); TSH (W/Ref FT4) 1.96 uIU/mL (0.36-3.74); Total Protein 6.7 g/dL (6.4-8.2); Vitamin B12 611 pg/mL (193-986)
[2023-08-25 19:44] LABS: Ferritin 1418 ng/mL (26-388)
[2023-08-25 20:10] LABS: NT-proBNP 665 pg/mL (<300)
== END 2023-08-25 18:33 | disposition home or self-care (01) ==
LOC: LBN 18:32
PROVIDERS: PCP Legal Medicine; Visit Provider Nurse Practitioner Gerontology
DX: E83.42 Hypomagnesemia (principal); R53.82 Chronic fatigue, unspecified; I11.0 Hypertensive heart disease with heart failure; R73.09 Other abnormal glucose; G89.4 Chronic pain syndrome; J18.9 Pneumonia, unspecified organism; D51.9 Vitamin B12 deficiency anemia, unspecified
CPT/HCPCS: 80053; 82306; 82607; 82728; 82746; 83036; 83540; 83550; 83735; 83880; 84443; 85025

== ENCOUNTER 2023-09-01 17:57 | Outpatient (REF) | payer MEDICARE, MEDICAID, SELFPAY ==
[2023-09-01 18:40] LABS: Abs Immature Grans 0.04 10^3/uL (0.0-0.06); Absolute Basophil Count 0.08 10^3/uL (0.0-0.2); Absolute Eosinophil Count 0.48 10^3/uL (0.0-0.7); Absolute Lymphocyte Count 2.21 10^3/uL (1.2-3.4); Absolute Monocyte Count 0.84 10^3/uL (0.1-0.8); Absolute Neutrophil Count 5.74 10^3/uL (1.2-6.7); Basophils % 0.9 %; Eosinophils % 5.1 %; HCT 34.7 % (40.0-50.0); HGB 11.5 g/dL (13.5-17.5); Immature Grans % 0.4 %; Lymphocytes % 23.5 %; MCH 33.7 pg (27.0-33.0); MCHC 33.1 % (32.0-36.0); MCV 102 fL (80-95); MPV 11.7 fL (8.0-11.0); Monocytes % 8.9 %; Neutrophils % 61.2 %; Platelet Count 199 10^3/uL (130-400); RBC 3.41 10^6/uL (4.36-5.78); RDW 12.4 % (11.8-14.1); RDW-SD 46.8 fL; WBC 9.39 10^3/uL (4.4-10.8)
[2023-09-01 19:14] LABS: ALT 21 U/L (16-63); AST 16 U/L (15-37); Albumin 2.6 g/dL (3.4-5.0); Alkaline Phosphatase 92 U/L (46-116); Anion Gap 7.1 mmol/L (3-11); BUN 8 mg/dL (7-18); Bilirubin, Total 0.27 mg/dL (0.2-1.0); CO2 29.9 mmol/L (21.0-32.0); CREATININE 0.7 mg/dL (0.70-1.30); Calcium 8.1 mg/dL (8.5-10.1); Chloride 99 mmol/L (98-107); Glucose 122 mg/dL (74-106); NT-proBNP 810 pg/mL (<300); Potassium 3.7 mmol/L (3.5-5.1); Sodium 136 mmol/L (136-145); Total Protein 5.9 g/dL (6.4-8.2)
== END 2023-09-01 17:58 | disposition home or self-care (01) ==
LOC: LBN 17:57
PROVIDERS: PCP Legal Medicine; Visit Provider Nurse Practitioner Gerontology
DX: J44.1 Chronic obstructive pulmonary disease with (acute) exacerbation (principal); E87.1 Hypo-osmolality and hyponatremia; E55.9 Vitamin D deficiency, unspecified; D51.9 Vitamin B12 deficiency anemia, unspecified; I10 Essential (primary) hypertension; E85.4 Organ-limited amyloidosis
CPT/HCPCS: 80053; 83880; 85025

== ENCOUNTER 2023-09-22 18:53 | Outpatient (REF) | payer MEDICARE, MEDICAID, SELFPAY ==
--- OUTSIDE RECORDS SUMMARY | 2023-09-22 18:55 | XMS_ITS | Encounter Summary ---
Author Organization [facility] Address [address] [place] [address] Care Team Providers Care Polymer Engineer Name Role Phone Katia Stone PA-C Primary Care Provider [phone] Encounter Details Date Type Department Care Team (Late st Contact Info) Description 08/25/2020 Lab Requisition [facility] Pathology & Laboratory Medicine - [address] [address] Outr Resulting Lab, Provider Social History Tobacco Use Types Packs/Day Years Used Date Smoking Tobacco: Never Smokeless Tobacco: Never Alcohol Use Standard Drinks/Week Comments Yes 0 (1 standard drink = 0.6 oz pur e alcohol) whiskey-daily, 2 Interpersonal Safety Answer Date Record ed Physically Hurt Never 10/03/2019 Verbally Threaten Not on file 10/03/2019 Sex and Gender Information Value Date Recorded Sex Assigned at Not on file Gender Identity Male 06/08/2020 9:05 EDT Sexual Orientation Not on file documented as of this encounter Functional Status Functional Status Response Date of Assess ment Are you deaf or do you have serious difficulty h earing? No 06/12/2017 Are you blind or do you have serious difficulty seeing, even when wearing glasses? No 06/12/2017 Do you have serious difficul ty walking or climbing stairs? (5 years old or older) No 06/12/2017 Do you have difficulty dress ing or bathing? (5 years old or older) Yes 06/12/2017 Because of a physical, menta l, or emotional condition, do you have difficulty doing errands alone such as visiting a doctor's office or shopping? (15 years old or older) No 06/12/2017 Cognitive Status Response Date of Assessm ent Because of a physical, menta l, or emotional condition, do you have serious difficulty concentrating, remembering, or making decisions? (5 years old or older) No 06/12/2017 documented as of this encounter Plan of Treatment Not on file documented as of this encounter Procedures Procedure Name Priority Date/Time Associated Diagnosis Comments HSV (HERPES SIMPLEX VIRUS) MOLECULAR DETECTION, PCR Routine 08/25/2020 14:15 EDT documented in this encounter Results * HERPES SIMPLEX VIRUS MOLECULAR DETECTION, PCR (08/25/2020 14:15 EDT) Herpes Simplex Virus Molecular Detection 1, PCR Negative Negative 08/26/2020 17:16 EDT [facility] Herpes Simplex Virus Molecular Detection 2, PCR Negative Negative 08/26/2020 17:16 EDT [facility] Swab ENTIRE UPPER LIMB / Unknown 08/25/2020 14:15 EDT 08/25/2020 21:20 EDT Provider Outr Resulting Lab MICROBIOLOGY - GENERAL ORDERABLES Performing Organization Address City/State/[facility] Co de Phone Number [facility] [address] [place] [address] documented in this encounter Visit Diagnoses Not on filedocumented in this encounter Additional Health Concerns Infection Onset Date Last Indicated Resolved Time RSV 01/31/2022 01/31/2022 02/10/2022 22:1 5 EST documented as of this encounter Care Teams Polymer Engineer Relationship Specialty Start Date End Date Katia Stone PA-C [address] [place] [address] PCP - General 05/02/17 documented as of this encounter
--- OUTSIDE RECORDS SUMMARY | 2023-09-22 18:55 | XMS_ITS | Encounter Summary ---
Author Organization [facility] Address [address] [place] [address] Care Team Providers Care Bar Useful Or Busser Name Role Phone Katia Stone PA-C Primary Care Provider +1- [phone] Encounter Details Date Type Department Care Team (Late st Contact Info) Description 08/12/2020 Results Only [facility] [place] [facility] [place] [address] [place] [address] Ester Valerio MD [address] [facility] [address] [place] [phone] Social History Tobacco Use Types Packs/Day Years [...] Procedure Name Priority Date/Time Associated Diagnosis Comments MAGNESIUM Routine 08/12/2020 6:48 EDT HEPATIC FUNCTION PANEL (ALB,ALK PHOS,ALT,AST,DBIL,T OT BOSSMAN,TOT PROT) Routine 08/12/2020 6:48 EDT BASIC METABOLIC PANEL (BMP) Routine 08/12/2020 6:48 EDT documented in this encounter Results * (ABNORMAL) MAGNESIUM (08/12/2020 6:48 EDT) Magnesium 1.4(L) 1.8 - 2.4 mg/dl 08/12/2020 7:37 EDT LAB 08/12/2020 6:48 EDT 08/12/2020 7:00 EDT Ester Valerio MD CHEMISTRY & BLOO D GAS ORDERABLES Performing Organization Address City/State/[facility] Co de Phone Number LAB [address] [place] [address] * (ABNORMAL) BASIC METABOLIC PANEL (BMP) (08/12/2020 6:48 EDT) Sodium 135(L) 136 - 145 mEq/L 08/12/2020 7:37 EDT LAB Potassium 3.2(L) 3.5 - 5.1 mEq/L 08/12/2020 7:37 EDT LAB Chloride 101 96 - 107 mEq/L 08/12/2020 7:37 EDT LAB CO2 Total 28.8 21 - 32 mEq/L 08/12/2020 7:37 [facility] Anion Gap 4.2 mEq/L 08/12/2020 7:37 [facility] BUN 5(L) 7 - 25 mg/dl 08/12/2020 7:37 [facility] Creatinine 0.50(L) 0.70 - 1.30 mg/dl 08/12/2020 7:37 [facility] Estimated GFR >60 >60 08/12/2020 7:37 [facility] Comment: EGFR UNITS: mL/min/1.73 m 2 CKD-EPI Equation used to calculate. Glucose 102 74 - 106 mg/dl 08/12/2020 7:37 [facility] Calcium 7.9(L) 8.5 - 10.1 mg/dl 08/12/2020 7:37 [facility] 08/12/2020 6:48 EDT 08/12/2020 7:00 EDT Ester Valerio MD CHEMISTRY & BLOO D GAS ORDERABLES LAB [address] [place] [address] * (ABNORMAL) HEPATIC FUNCTION PANEL (ALB,ALK PHOS,ALT,AST,DBIL,TOT BOSSMAN,TOT PROT) (08/12/2020 6:48 EDT) BILIRUBIN - PMC 0.50 0.00 - 1.00 mg/dl 08/12/2020 7:37 [facility] DIRECT BILIRUBIN - PMC 0.20 0.00 - 0.30 mg/dl 08/12/2020 7:37 [facility] INDIRECT BILIRUBIN - PMC 0.30 0.00 - 0.80 mg/dl 08/12/2020 7:37 [facility] AST 31 15 - 37 U/L 08/12/2020 7:37 [facility] ALT 25 16 - 63 U/L 08/12/2020 7:37 [facility] Alkaline Phosphatase 99 46 - 116 U/L 08/12/2020 7:37 EDT LAB Total Protein 5.9(L) 6.4 - 8.2 g/dl 08/12/2020 7:37 EDT LAB Albumin 2.2(L) 3.4 - 5.0 g/dl 08/12/2020 7:37 EDT LAB GLOBULIN - PMC 3.7 g/dl 08/12/2020 7:37 EDT LAB ALBUMIN/GLOBULIN RATIO - PMC 0.5 08/12/2020 7:37 EDT LAB 08/12/2020 6:48 EDT 08/12/2020 7:00 EDT Ester Valerio MD CHEMISTRY & BLOO D GAS ORDERABLES LAB [address] [place] [address] documented in this encounter Visit Diagnoses Not on filedocumented in this encounter Care Teams Bar Useful Or Busser Relationship Specialty Start Date End Date Katia Stone, PABijalC [address] [place] [phone] PCP - General 05/02/17 documented as of this encounter
--- OUTSIDE RECORDS SUMMARY | 2023-09-22 18:55 | XMS_ITS | Encounter Summary ---
Author Organization [facility] Address [address] [place] [address] Care Team Providers Care Bartenders Name Role Phone Katia Stone PA-C Primary Care Provider +1- [phone] Encounter Details Date Type Department Care Team (Late st Contact Info) Description 08/17/2023 Lab Requisition [facility] Pathology & Laboratory Medicine - [address] [address] Outr Resulting Lab, Provider Social History Tobacco [...] Procedure Name Priority Date/Time Associated Diagnosis Comments OSMOLALITY, URINE Routine 08/16/2023 21: 50 EDT documented in this encounter Results * OSMOLALITY, URINE (08/16/2023 21:50 EDT) Osmolality, Urine 347 150 - 1,150 mOsm/kg 08/17/2023 16:14 EDT [facility] Urine URINE / Unknown 08/16/2023 2 1:50 EDT 08/17/2023 16:03 EDT Provider Outr Resulting Lab URINALYSIS O RDERABLES [facility] [address] [place] [address] documented in this encounter Visit Diagnoses Not on filedocumented in this encounter Care Teams Bartenders Relationship Specialty Start Date End Date Katia Stone PA-C [address] [place] [phone] PCP - General 05/02/17 documented as of this encounter
--- OUTSIDE RECORDS SUMMARY | 2023-09-22 18:55 | XMS_ITS | Encounter Summary ---
Author Organization [facility] Address [address] [place] [address] Care Team Providers Care Coach Cleaner Name Role Phone Katia Stone PA-C Primary Care Provider +1- [phone] Encounter Details Date Type Department Care Team (Late st Contact Info) Description 08/14/2020 Results Only [facility] Lab [address] [place] [address] Jayesh Olmos MD [address] [place] [address] Social History Tobacco Use Types Packs/Day [...] Procedure Name Priority Date/Time Associated Diagnosis Comments COMPLETE BLOOD COUNT AND DIFFERENTIAL Routine 08/14/2020 5:03 EDT MAGNESIUM Routine 08/14/2020 5:03 EDT COMPREHENSIVE METABOLIC PANEL (CMP) Routine 08/14/2020 5:03 EDT documented in this encounter Results * (ABNORMAL) MAGNESIUM (08/14/2020 5:03 EDT) Magnesium 1.6(L) 1.8 - 2.4 mg/dl 08/14/2020 6:19 EDT [facility] 08/14/2020 5:03 EDT 08/14/2020 5:51 EDT Jayesh Olmos MD CHEMISTRY & BLO OD GAS ORDERABLES [facility] [address] [place] [address] * (ABNORMAL) COMPREHENSIVE METABOLIC PANEL (CMP) (08/14/2020 5:03 EDT) Sodium 138 136 - 145 mEq/L 08/14/2020 6:19 EDT [facility] Potassium 3.6 3.5 - 5.1 mEq/L 08/14/2020 6:19 [facility] Chloride 103 96 - 107 mEq/L 08/14/2020 6:19 T [facility] CO2 Total 28.4 21 - 32 mEq/L 08/14/2020 6:19 T [facility] Anion Gap 6.6 mEq/L 08/14/2020 6:19 [facility] BUN 11 7 - 25 mg/dl 08/14/2020 6:19 [facility] Creatinine 0.51(L) 0.70 - 1.30 mg/dl 08/14/2020 6:19 [facility] Estimated GFR >60 >60 08/14/2020 6:19 [facility] Comment: EGFR UNITS: mL/min/1.73 m 2 CKD-EPI Equation used to calculate. Glucose 101 74 - 106 mg/dl 08/14/2020 6:19 [facility] Calcium 8.1(L) 8.5 - 10.1 mg/dl 08/14/2020 6:19 [facility] CALCIUM,CORRECTE D - PMC 9.5 8.5 - 10.5 mg/dl 08/14/2020 6:19 [facility] BILIRUBIN - PMC 0.40 0.00 - 1.00 mg/dl 08/14/2020 6:19 [facility] AST 34 15 - 37 U/L 08/14/2020 6:19 [facility] ALT 21 16 - 63 U/L 08/14/2020 6:19 [facility] Alkaline Phosphatase 102 46 - 116 U/L 08/14/2020 6:19 [facility] Total Protein 6.3(L) 6.4 - 8.2 g/dl 08/14/2020 6:19 [facility] Albumin 2.2(L) 3.4 - 5.0 g/dl 08/14/2020 6:19 [facility] GLOBULIN - PMC 4.1 g/dl 08/14/2020 6:19 [facility] ALBUMIN/GLOBULIN RATIO - PMC 0.5 08/14/2020 6:19 [facility] 08/14/2020 5:03 EDT 08/14/2020 5:51 EDT Jayesh Olmos MD CHEMISTRY & BLO OD GAS ORDERABLES [facility] [address] [place] [address] * (ABNORMAL) COMPLETE BLOOD COUNT AND DIFFERENTIAL (08/14/2020 5:03 EDT) WBC 5.1 4.0 - 10.5 10 3/uL 08/14/2020 6:06 [facility] RBC 2.76(L) 4.70 - 6.00 10 6/uL 08/14/2020 6:06 [facility] Hemoglobin 9.9(L) 13.5 - 18.0 g/dL 08/14/2020 6:06 [facility] HCT 28.7(L) 42.0 - 52.0 % 08/14/2020 6:06 [facility] MCV 104.0(H) 78 - 100 fL 08/14/2020 6:06 [facility] MCH 35.9(H) 27 - 31 pg 08/14/2020 6:06 [facility] MCHC 34.5 32 - 37 g/dL 08/14/2020 6:06 [facility] RDW-CV - PMC 15.9(H) <14.7 % 08/14/2020 6:06 [facility] PLATELET COUNT - PMC 189 150 - 450 10 3/uL 08/14/2020 6:06 [facility] MPV 10.8 9.2 - 12.0 fL 08/14/2020 6:06 [facility] NEUTROPHILS % (AUTO) - PMC 54.7 % 08/14/2020 6:06 [facility] LYMPHOCYTES % (AUTO) - PMC 23.0 % 08/14/2020 6:06 [facility] MONOCYTES % (AUTO) - PMC 18.2 % 08/14/2020 6:06 [facility] EOSINOPHILS % (AUTO) - PMC 2.5 NOT ESTABLISHED % 08/14/2020 6:06 [facility] BASOPHILS % (AUTO) - PMC 0.8 % 08/14/2020 6:06 [facility] Immature Granulocyte % (Auto) 0.8 % 08/14/2020 6:06 [facility] NUCLEATED RBC % (AUTO) - PMC 0.0 % 08/14/2020 6:06 [facility] NEUTROPHILS # (AUTO) - PMC 2.8 1.5 - 6.6 10 3/uL 08/14/2020 6:06 [facility] LYMPHOCYTES # (AUTO) - PMC 1.2 1.0 - 3.5 10 3/uL 08/14/2020 6:06 [facility] MONOCYTES # (AUTO) - PMC 0.9 <1.0 10 3/uL 08/14/2020 6:06 [facility] EOSINOPHILS # (AUTO) - PMC 0.1 <0.7 10 3/uL 08/14/2020 6:06 [facility] Absolute Immature Granulocyte 0.04 <0.06 10 3/uL 08/14/2020 6:06 [facility] DIFFERENTIAL METHOD Auto Differential 08/14/2020 5:52 [facility] 08/14/2020 5:03 EDT 08/14/2020 5:51 EDT Narrative [facility] - 08/14/2020 6:11 EDT Comment ENOXAPARIN MONITORING Jayesh Olmos MD PACKAGES & DNA PROBE ORDERABLES [facility] [address] [place] [address] documented in this encounter Visit Diagnoses Not on filedocumented in this encounter Care Teams Coach Cleaner Relationship Specialty Start Date End Date Katia Stone, PABijalC [address] [place] [phone] PCP - General 05/02/17 documented as of this encounter
--- OUTSIDE RECORDS SUMMARY | 2023-09-22 18:55 | XMS_ITS | Encounter Summary ---
Author Organization [facility] Address [address] [place] [address] Care Team Providers Care Casino Worker Name Role Phone Katia Stone PA-C Primary Care Provider +1- [phone] Encounter Details Date Type Department Care Team (Late st Contact Info) Description 08/19/2020 Results Only [facility] Lab [address] [place] [address] Junior Ray MD [address] [place] [address] Social History Tobacco Use Types [...] Procedure Name Priority Date/Time Associated Diagnosis Comments BASIC METABOLIC PANEL (BMP) Routine 08/19/2020 7:10 EDT documented in this encounter Results * (ABNORMAL) BASIC METABOLIC PANEL (BMP) (08/19/2020 7:10 EDT) Sodium 134(L) 136 - 145 mEq/L 08/19/2020 7:41 [facility] Potassium 3.5 3.5 - 5.1 mEq/L 08/19/2020 7:41 [facility] Chloride 99 96 - 107 mEq/L 08/19/2020 7:41 [facility] CO2 Total 29.4 21 - 32 mEq/L 08/19/2020 7:41 [facility] Anion Gap 5.6 mEq/L 08/19/2020 7:41 [facility] BUN 8 7 - 25 mg/dl 08/19/2020 7:41 [facility] Creatinine 0.48(L) 0.70 - 1.30 mg/dl 08/19/2020 7:41 [facility] Estimated GFR >60 >60 08/19/2020 7:41 [facility] Comment: EGFR UNITS: mL/min/1.73 m 2 CKD-EPI Equation used to calculate. Glucose 93 74 - 106 mg/dl 08/19/2020 7:41 [facility] Calcium 8.3(L) 8.5 - 10.1 mg/dl 08/19/2020 7:41 [facility] 08/19/2020 7:10 EDT 08/19/2020 7:13 EDT Junior Ray MD CHEMISTRY & BLOOD G ORDERABLES [facility] [address] [place] [address] documented in this encounter Visit Diagnoses Not on filedocumented in this encounter Care Teams Casino Worker Relationship Specialty Start Date End Date Katia Stone, PABijalC [address] [facility] [place] [facility] [place] [phone] PCP - General 05/02/17 documented as of this encounter
--- OUTSIDE RECORDS SUMMARY | 2023-09-22 18:55 | XMS_ITS | Encounter Summary ---
Author Organization [facility] Address [address] [place] [address] Care Team Providers Care Sausage Linker Name Role Phone Katia Stone PA-C Primary Care Provider +1- [phone] Encounter Details Date Type Department Care Team (Late st Contact Info) Description 08/16/2020 Results Only [facility] Lab [address] [place] [address] Junior Ray MD [address] [place] [address] Social History Tobacco Use Types [...] Date/Time Associated Diagnosis Comments COMPLETE BLOOD COUNT Routine 08/16/2020 5:20 EDT BASIC METABOLIC PANEL (BMP) Routine 08/16/2020 5:20 EDT documented in this encounter Results * (ABNORMAL) BASIC METABOLIC PANEL (BMP) (08/16/2020 5:20 EDT) Sodium 137 136 - 145 mEq/L 08/16/2020 5:50 [facility] Potassium 3.5 3.5 - 5.1 mEq/L 08/16/2020 5:50 [facility] Chloride 103 96 - 107 mEq/L 08/16/2020 5:50 [facility] CO2 Total 28.1 21 - 32 mEq/L 08/16/2020 5:50 [facility] Anion Gap 5.9 mEq/L 08/16/2020 5:50 [facility] BUN 14 7 - 25 mg/dl 08/16/2020 5:50 [facility] Creatinine 0.57(L) 0.70 - 1.30 mg/dl 08/16/2020 5:50 [facility] Estimated GFR >60 >60 08/16/2020 5:50 [facility] Comment: EGFR UNITS: mL/min/1.73 m 2 CKD-EPI Equation used to calculate. Glucose 86 74 - 106 mg/dl 08/16/2020 5:50 [facility] Calcium 8.0(L) 8.5 - 10.1 mg/dl 08/16/2020 5:50 [facility] 08/16/2020 5:20 EDT 08/16/2020 5:29 EDT Junior Ray MD CHEMISTRY & BLOOD G ORDERABLES Performing Organization Address City/[facility]/ZIP Co de Phone Number [facility] [address] [place] [address] * (ABNORMAL) COMPLETE BLOOD COUNT (08/16/2020 5:20 EDT) Pathologist [facility] WBC 5.0 4.0 - 10.5 10 3/uL 08/16/2020 5:46 EDT [facility] RBC 2.65(L) 4.70 - 6.00 10 6/uL 08/16/2020 5:46 [facility] Hemoglobin 9.3(L) 13.5 - 18.0 g/dL 08/16/2020 5:46 [facility] HCT 27.3(L) 42.0 - 52.0 % 08/16/2020 5:46 [facility] MCV 103.0(H) 78 - 100 fL 08/16/2020 5:46 [facility] MCH 35.1(H) 27 - 31 pg 08/16/2020 5:46 [facility] MCHC 34.1 32 - 37 g/dL 08/16/2020 5:46 [facility] RDW-CV - PMC 15.1(H) <14.7 % 08/16/2020 5:46 [facility] PLATELET COUNT - PMC 202 150 - 450 10 3/uL 08/16/2020 5:46 [facility] MPV 10.1 9.2 - 12.0 fL 08/16/2020 5:46 [facility] 08/16/2020 5:20 EDT 08/16/2020 5:29 EDT Junior Ray MD HEMATOLOGY & PF4 OR DERABLES [facility] [address] [place] [address] documented in this encounter Visit Diagnoses Not on filedocumented in this encounter Care Teams Sausage Linker Relationship Specialty Start Date End Date Katia Stone, PABijalC [address] [place] [phone] PCP - General 05/02/17 documented as of this encounter
--- OUTSIDE RECORDS SUMMARY | 2023-09-22 18:55 | XMS_ITS | Encounter Summary ---
Author Organization [facility] Address [address] [place] [address] Care Team Providers Care Casing Blower Name Role Phone Katia Stone PA-C Primary Care Provider +1- [phone] Encounter Details Date Type Department Care Team (Late st Contact Info) Description 08/29/2020 Results Only [facility] [phone] Rowan Abad, TAIWO [address] [place] [phone] Social History Tobacco Use Types Packs/Day [...] Procedure Name Priority Date/Time Associated Diagnosis Comments CREATININE WITH GFR - PMC Routine 08/29/2020 5:05 EDT PLATELET COUNT Routine 08/29/2020 5:05 EDT documented in this encounter Results * (ABNORMAL) CREATININE WITH GFR - PMC (08/29/2020 5:05 EDT) Creatinine 0.61(L) 0.70 - 1.30 mg/dl 08/29/2020 5:41 EDT [facility] Estimated GFR >60 >60 08/29/2020 5:41 EDT [facility] Comment: EGFR UNITS: mL/min/1.73 m 2 CKD-EPI Equation used to calculate. 08/29/2020 5:05 EDT 08/29/2020 5:23 EDT Rowan Abad NP CHEMISTRY & BLOOD GA S ORDERABLES Performing Organization Address City/[facility]/ZIP Co de Phone Number [facility] [address] [place] [address] * PLATELET COUNT (08/29/2020 5:05 EDT) PLATELET COUNT - [facility] 324 150 - 450 10 3/uL 08/29/2020 5:39 EDT [facility] 08/29/2020 5:05 EDT 08/29/2020 5:23 EDT Narrative [facility] - 08/29/2020 5:41 EDT Comment ENOXAPARIN MONITORING Rowan Abad NP HEMATOLOGY & PF4 ORD ERABLES [facility] [address] [place] [address] documented in this encounter Visit Diagnoses Not on filedocumented in this encounter Care Teams Casing Blower Relationship Specialty Start Date End Date Katia Stone, MINGO [address] [place] [phone] PCP - General 05/02/17 documented as of this encounter
--- OUTSIDE RECORDS SUMMARY | 2023-09-22 18:55 | XMS_ITS | Encounter Summary ---
Author Organization [facility] Address [address] [place] [address] Care Team Providers Care Brewery Cellar Worker Name Role Phone Katia Stone PA-C Primary Care Provider +1- [phone] Encounter Details Date Type Department Care Team (Late st Contact Info) Description 08/17/2023 Lab Requisition [facility] Pathology & Laboratory Medicine - [address] [address] Outr Resulting Lab, Provider Social History Tobacco [...] Procedure Name Priority Date/Time Associated Diagnosis Comments OSMOLALITY Routine 08/16/2023 20:10 EDT documented in this encounter Results * (ABNORMAL) OSMOLALITY (08/16/2023 20:10 EDT) Osmolality, Serum 259(L) 275 - 295 mOsm/kg 08/17/2023 16:24 EDT [facility] Blood VENOUS BLOOD / Unknown 08/16/2023 20:10 EDT 08/17/2023 16:03 EDT Provider Outr Resulting Lab CHEMISTRY & BLOOD GAS ORDERABLES [facility] [address] [place] [address] documented in this encounter Visit Diagnoses Not on filedocumented in this encounter Care Teams Brewery Cellar Worker Relationship Specialty Start Date End Date Katia Stone PA-C [address] [place] [phone] PCP - General 05/02/17 documented as of this encounter
--- OUTSIDE RECORDS SUMMARY | 2023-09-22 18:55 | XMS_ITS | Encounter Summary ---
Author Organization [facility] Address [address] [place] [address] Care Team Providers Care Button Decorating Machine Operator Name Role Phone Katia Stone PA-C Primary Care Provider +1- [phone] Reason for Visit * Reason Comments Diarrhea Extremity Weakness Alcohol Problem Palliative Care Symptom Management Encounter Details Date Type Department Care Team (Late st Contact Info) Description 08/25/2020 External Contact [facility] [address] [place], [place] [phone] Keara Stinson MD [address] [facility] [address] [place] [address] Frailty (Primary Dx); ETOH abuse; Grief; Palliative care by specialist Social History Tobacco Use Types Packs/Day Years [...] No 06/12/2017 documented as of this encounter Progress Notes * Keara Stinson MD - 08/25/2020 1610 EDT Palliative Care Consultation Date of Service: 08/25/2020 Referring Service: Nafisa Abad APRN Reason for Referral: Advance Care Planing and Psychosocial Support Assessment Tim is a 69 yo man with complete heart block s/p PPM (in 2018, prior to that time limited primary care), COPD, and chronic ETOH use who was admitted to [facility] with weakness, diarrhea, and regular [...] be receptive to formal psychotherapy. A bereavement vehicle technician through [facility] may be a good fit as well. Re: his advance directive. I did call his PCP office in [place], they have no record of previous Advance directive. Today's visit as spent getting to know Tim and acknowledging his grief. Tim did not seem ready todiscuss assigning a HCA or discussing advance care planning. 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 Present for Visit: Tim, me Narrative: Met with Tim in his room, explained palliative care as an extra layer of support to help with symptom management and next steps with chronic or serious illness. He was receptive to talking. Asked how things had been going for him during this hospital stay, he described feeling very frustrated at his Whitney (he calls her his NAJMA though suspect he means DIL), who was expected to visit yesterday with Tim's grandson and did not show up. Tim then shared a bit about his family situationand how important his 9 yo grandson is to him. His son Tyrese (grandson's father) recently. Tim became tearful discussing Tyrese- how he was told to [...] his heart attack and was transferred to [place]. He has had several cardiac issues since. He is originally from [place] and lived in the [facility] area until 2018 when his medical issues became more acute. Since then, he has lived in [facility] [place] [facility], had lived with his son Tyrese until his and more recently living with Tyrese's partner Whitney. He was raised on a farm in [place] with 7 siblings. 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 He stopped working because of health issues. When I ask him about supports in his life, for instance who might be an emergency contact, he says quickly They are all . He does name his brother as a person in his family whom he is connectedwith though does not elaborate. 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
--- OUTSIDE RECORDS SUMMARY | 2023-09-22 18:55 | XMS_ITS | Encounter Summary ---
Author Organization [facility] Address [address] [place] [address] Care Team Providers Care Roving Department Supervisor Name Role Phone Katia Stone PA-C Primary Care Provider +1- [phone] Encounter Details Date Type Department Care Team (Late st Contact Info) Description 02/01/2022 Lab Requisition [facility] - [address] [address] Outr Resulting Lab, Provider Social History Tobacco [...] Procedure Name Priority Date/Time Associated Diagnosis Comments TOMMY INFLUENZA A AND B, RSV PCR Routine 01/31/2022 9:47 EST documented in this encounter Results * (ABNORMAL) INFLUENZA A AND B,RSV PCR (01/31/2022 9:47 EST) FLU A RNA Result (FLARES) Negative Negative 02/02/2022 1:45 EST [facility] FLU B RNA Result (FLBRES) Negative Negative 02/02/2022 1:45 EST [facility] RSV RNA Result (RSVRES) Positive(A) Negative 02/02/2022 1:45 EST [facility] Swab ENTIRE NASOPHARYNX / Unknown 01/31/2022 9:47 EST 02/01/2022 20:34 EST Provider Outr Resulting Lab MICROBIOLOGY - GENERAL ORDERABLES Performing Organization Address City/State/[facility] Co de Phone Number [facility] [address] [place] [address] documented in this encounter Visit Diagnoses Not on filedocumented in this encounter Additional Health Concerns Infection Onset Date Last Indicated Resolved Time RSV 01/31/2022 01/31/2022 02/10/2022 22:1 5 EST documented as of this encounter Care Teams Roving Department Supervisor Relationship Specialty Start Date End Date Katia Stone, PABijalC [address] [facility] [place] [facility] [place] [phone] PCP - General 05/02/17 documented as of this encounter
--- OUTSIDE RECORDS SUMMARY | 2023-09-22 18:55 | XMS_ITS | Encounter Summary ---
Author Organization [facility] Address [address] [place] [address] Care Team Providers Care Chief Credit Officer Name Role Phone Katia Stone PA-C Primary Care Provider +1- [phone] Encounter Details Date Type Department Care Team (Late st Contact Info) Description 08/20/2020 Results Only [facility] [address] [place] [address] Junior Ray MD [address] [place] [address] Social History Tobacco Use Types [...] Associated Diagnosis Comments COMPLETE BLOOD COUNT Routine 08/20/2020 6:50 EDT MAGNESIUM Routine 08/20/2020 6:50 EDT BASIC METABOLIC PANEL (BMP) Routine 08/20/2020 6:50 EDT documented in this encounter Results * (ABNORMAL) MAGNESIUM (08/20/2020 6:50 EDT) Magnesium 1.6(L) 1.8 - 2.4 mg/dl 08/20/2020 13:10 EDT [facility] 08/20/2020 6:50 EDT 08/20/2020 6:59 EDT Junior Ray MD CHEMISTRY & BLOOD G ORDERABLES [facility] [address] [place] [address] * (ABNORMAL) BASIC METABOLIC PANEL (BMP) (08/20/2020 6:50 EDT) Sodium 134(L) 136 - 145 mEq/L 08/20/2020 7:27 EDT [facility] Potassium 3.6 3.5 - 5.1 mEq/L 08/20/2020 7:27 [facility] Chloride 100 96 - 107 mEq/L 08/20/2020 7:27 EDT [facility] CO2 Total 28.7 21 - 32 mEq/L 08/20/2020 7:27 T [facility] Anion Gap 5.3 mEq/L 08/20/2020 7:27 [facility] BUN 7 7 - 25 mg/dl 08/20/2020 7:27 [facility] Creatinine 0.48(L) 0.70 - 1.30 mg/dl 08/20/2020 7:27 [facility] Estimated GFR >60 >60 08/20/2020 7:27 [facility] Comment: EGFR UNITS: mL/min/1.73 m 2 CKD-EPI Equation used to calculate. Glucose 91 74 - 106 mg/dl 08/20/2020 7:27 [facility] Calcium 8.3(L) 8.5 - 10.1 mg/dl 08/20/2020 7:27 [facility] 08/20/2020 6:50 EDT 08/20/2020 6:59 EDT Junior Ray MD CHEMISTRY & BLOOD G ORDERABLES [facility] [address] [place] [address] * (ABNORMAL) COMPLETE BLOOD COUNT (08/20/2020 6:50 EDT) WBC 5.8 4.0 - 10.5 10 3/uL 08/20/2020 7:07 [facility] RBC 2.96(L) 4.70 - 6.00 10 6/uL 08/20/2020 7:07 [facility] Hemoglobin 10.5(L) 13.5 - 18.0 g/dL 08/20/2020 7:07 [facility] HCT 29.8(L) 42.0 - 52.0 % 08/20/2020 7:07 [facility] MCV 100.7(H) 78 - 100 fL 08/20/2020 7:07 [facility] MCH 35.5(H) 27 - 31 pg 08/20/2020 7:07 [facility] MCHC 35.2 32 - 37 g/dL 08/20/2020 7:07 [facility] RDW-CV - PMC 14.7 <14.7 % 08/20/2020 7:07 EDT [facility] PLATELET COUNT - PMC 253 150 - 450 10 3/uL 08/20/2020 7:07 T [facility] MPV 10.1 9.2 - 12.0 fL 08/20/2020 7:07 EDT [facility] 08/20/2020 6:50 EDT 08/20/2020 6:59 EDT Junior Ray MD HEMATOLOGY & PF4 OR DERABLES [facility] [address] [place] [address] documented in this encounter Visit Diagnoses Not on filedocumented in this encounter Care Teams Chief Credit Officer Relationship Specialty Start Date End Date Katia Stone, PABijalC [address] [place] [phone] PCP - General 05/02/17 documented as of this encounter
--- OUTSIDE RECORDS SUMMARY | 2023-09-22 18:55 | XMS_ITS | Encounter Summary ---
Author Organization [facility] Address [address] [place] [address] Care Team Providers Care Organic Gardening Teacher Name Role Phone Katia Stone PA-C Primary Care Provider +1- [phone] Reason for Visit * (Routine/Next Available) - New Request Specialty Diagnoses / Procedures Referred By Contac t Referred To Contact Procedures CT OUTSIDE IMAGES BODY Unknown, Provider, Referral ID Status Reason Start Date Expiration Date V isits Requested Visits Authorized [id number] New Request 06/20/2021 1 1 Encounter Details Date Type Department Care Team (Latest Contact Info) Description 06/20/2021 15:36 EDT - 06/20/2021 23:59 EDT Hospital Encounter [facility] Secondary Reads [place] Discharge Disposition: Home or Self Care Social History Tobacco Use Types Packs/Day Years [...] No 06/12/2017 documented as of this encounter Medications at Time of Discharge Medication Sig Dispensed Refills Start Date End Date acetaminophen (TYLENOL) 500 mg tablet Take 1,000 mg by mouth 2 times daily. colchicine (COLCRYS) 0.6 mg tablet Take 1 Tab by mouth 2 times daily. 60 Tab 05/27/2017 ibuprofen (MOTRIN) 200 mg tablet Take 180 mg by mouth 2 times daily. metoprolol (LOPRESSOR) 25 mg tablet Take 1 Tab by mouth 2 times daily. 60 Tab 3 06/16/2017 omeprazole (PRILOSEC) 20 mg capsule Take 20 mg by mouth daily. predniSONE (DELTASONE) 10 mg tablet Take 30mg (20+10) 06/17-06/30; 20mg (20) 07/01-07/14; 10mg (10) 07/15-07/28; 5mg (1/2 of 10) 07/29-08/04 32 Tab 06/16/2017 predniSONE (DELTASONE) 20 mg tablet Take 30mg (20+10) 06/17-06/30; 20mg (20) 07/01-07/14; 10mg (10) 07/15-07/28; 5mg (1/2 of 10) 07/29-08/04 28 Tab 06/16/2017 torsemide (DEMADEX) 20 mg tablet Take 2 Tabs by mouth daily. 60 Tab 2 05/27/2017 documented as of this encounter Discharge Disposition Disposition Code Departure Means Destination Home or Self Care documented in this encounter Plan of Treatment Not on file documented as of this encounter Procedures Procedure Name Priority Date/Time Associated Diagnosis Comments CT OUTSIDE IMAGES BODY Routine 06/20/2021 15:36 EDT documented in this encounter Results * CT OUTSIDE IMAGES BODY (06/20/2021 15:36 EDT) Narrative 06/20/2021 15:36 EDT This is a non-reportable exam. Provider Unknown MD DAVIS OTHER IMAGING OR DERABLES documented in this encounter Visit Diagnoses Not on filedocumented in this encounter Care Teams Organic Gardening Teacher Relationship Specialty Start Date End Date Katia Stone, PABijalC [address] [place] [phone] PCP - General 05/02/17 documented as of this encounter
--- OUTSIDE RECORDS SUMMARY | 2023-09-22 18:55 | XMS_ITS | Encounter Summary ---
Author Organization [facility] Address [address] [place] [address] Care Team Providers Care Claims Clerk Name Role Phone Katia Stone PA-C Primary Care Provider +1- [phone] Encounter Details Date Type Department Care Team (Late st Contact Info) Description 09/14/2020 Results Only [facility] [phone] Rowan Abad, TAIWO [address] [place] [phone] Social History Tobacco Use Types Packs/Day [...] Comments CREATININE WITH GFR - PMC Routine 09/14/2020 5:35 EDT PLATELET COUNT Routine 09/14/2020 5:35 EDT documented in this encounter Results * (ABNORMAL) PLATELET COUNT (09/14/2020 5:35 EDT) PLATELET COUNT - PMC 94(L) 150 - 450 10 3/uL 09/14/2020 6:07 EDT LAB 09/14/2020 5:35 EDT 09/14/2020 5:46 EDT Narrative LAB - 09/14/2020 6:16 EDT Comment ENOXAPARIN MONITORING Rowan Abad NP HEMATOLOGY & PF4 ORD ERABLES Performing Organization Address City/State/[facility] Co de Phone Number LAB [address] [place] [address] * (ABNORMAL) CREATININE WITH GFR - PMC (09/14/2020 5:35 EDT) Creatinine 0.58(L) 0.70 - 1.30 mg/dl 09/14/2020 6:09 EDT LAB Estimated GFR >60 >60 09/14/2020 6:09 T LAB Comment: EGFR UNITS: mL/min/1.73 m 2 CKD-EPI Equation used to calculate. 09/14/2020 5:35 EDT 09/14/2020 5:46 EDT Rowan Abad NP CHEMISTRY & BLOOD GA S ORDERABLES LAB [address] [place] [address] documented in this encounter Visit Diagnoses Not on filedocumented in this encounter Care Teams Claims Clerk Relationship Specialty Start Date End Date Katia Stone, MINGO [address] [place] [phone] PCP - General 05/02/17 documented as of this encounter
--- OUTSIDE RECORDS SUMMARY | 2023-09-22 18:55 | XMS_ITS | Encounter Summary ---
Author Organization [facility] Address [address] [place] [address] Care Team Providers Care Military Communications Specialist Name Role Phone Katia Stone PA-C Primary Care Provider +1- [phone] Encounter Details Date Type Department Care Team (Late st Contact Info) Description 09/05/2020 Results Only [facility] [phone] Rowan Abad, TAIWO [address] [place] [phone] Social History Tobacco Use Types Packs/Day [...] Comments COMPLETE BLOOD COUNT AND DIFFERENTIAL Routine 09/05/2020 14:30 EDT MAGNESIUM Routine 09/05/2020 14:30 EDT BASIC METABOLIC PANEL (BMP) Routine 09/05/2020 14:30 EDT documented in this encounter Results * (ABNORMAL) COMPLETE BLOOD COUNT AND DIFFERENTIAL (09/05/2020 14:30 EDT) WBC 6.4 4.0 - 10.5 10 3/uL 09/05/2020 14:58 [facility] RBC 3.40(L) 4.70 - 6.00 10 6/uL 09/05/2020 14:58 [facility] Hemoglobin 11.6(L) 13.5 - 18.0 g/dL 09/05/2020 14:58 [facility] HCT 33.9(L) 42.0 - 52.0 % 09/05/2020 14:58 [facility] MCV 99.7 78 - 100 fL 09/05/2020 14:58 [facility] MCH 34.1(H) 27 - 31 pg 09/05/2020 14:58 [facility] MCHC 34.2 32 - 37 g/dL 09/05/2020 14:58 [facility] RDW-CV - PMC 13.1 <14.7 % 09/05/2020 14:58 [facility] PLATELET COUNT - PMC 253 150 - 450 10 3/uL 09/05/2020 14:58 [facility] MPV 10.9 9.2 - 12.0 fL 09/05/2020 14:58 [facility] NEUTROPHILS % (AUTO) - PMC 57.6 % 09/05/2020 14:58 [facility] LYMPHOCYTES % (AUTO) - PMC 25.0 % 09/05/2020 14:58 [facility] MONOCYTES % (AUTO) - PMC 13.3 % 09/05/2020 14:58 [facility] EOSINOPHILS % (AUTO) - PMC 2.7 NOT ESTABLISHED % 09/05/2020 14:58 [facility] BASOPHILS % (AUTO) - PMC 1.1 % 09/05/2020 14:58 [facility] Immature Granulocyte % (Auto) 0.3 % 09/05/2020 14:58 [facility] NUCLEATED RBC % (AUTO) - PMC 0.0 % 09/05/2020 14:58 [facility] NEUTROPHILS # (AUTO) - PMC 3.7 1.5 - 6.6 10 3/uL 09/05/2020 14:58 [facility] LYMPHOCYTES # (AUTO) - PMC 1.6 1.0 - 3.5 10 3/uL 09/05/2020 14:58 [facility] MONOCYTES # (AUTO) - PMC 0.9 <1.0 10 3/uL 09/05/2020 14:58 [facility] EOSINOPHILS # (AUTO) - PMC 0.2 <0.7 10 3/uL 09/05/2020 14:58 [facility] BASOPHILS # (AUTO) - PMC 0.1 <0.1 10 3/uL 09/05/2020 14:58 [facility] Absolute Immature Granulocyte 0.02 <0.06 10 3/uL 09/05/2020 14:58 [facility] DIFFERENTIAL METHOD Auto Differential 09/05/2020 14:36 [facility] 09/05/2020 14:3 0 EDT 09/05/2020 14:35 EDT Rowan Abad NP PACKAGES & DNA PROBE ORDERABLES [facility] [address] [place] [address] * MAGNESIUM (09/05/2020 14:30 EDT) Pathologist [facility] Magnesium 1.8 1.8 - 2.4 mg/dl 09/05/2020 14:57 [facility] 09/05/2020 14:3 0 EDT 09/05/2020 14:35 EDT Rowan Abad NP CHEMISTRY & BLOOD GA S ORDERABLES Performing Organization Address City/[facility] Co de Phone Number [facility] [address] [place] [address] * (ABNORMAL) BASIC METABOLIC PANEL (BMP) (09/05/2020 14:30 EDT) Pathologist [facility] Sodium 132(L) 136 - 145 mEq/L 09/05/2020 14:57 [facility] Potassium 4.3 3.5 - 5.1 mEq/L 09/05/2020 14:57 [facility] Chloride 99 96 - 107 mEq/L 09/05/2020 14:57 [facility] CO2 Total 26.5 21 - 32 mEq/L 09/05/2020 14:57 [facility] Anion Gap 6.5 mEq/L 09/05/2020 14:57 [facility] BUN 12 7 - 25 mg/dl 09/05/2020 14:57 [facility] Creatinine 0.60(L) 0.70 - 1.30 mg/dl 09/05/2020 14:57 [facility] Estimated GFR >60 >60 09/05/2020 14:57 [facility] Comment: EGFR UNITS: mL/min/1.73 m 2 CKD-EPI Equation used to calculate. Glucose 100 74 - 106 mg/dl 09/05/2020 14:57 [facility] Calcium 8.6 8.5 - 10.1 mg/dl 09/05/2020 14:57 [facility] 09/05/2020 14:3 0 EDT 09/05/2020 14:35 EDT Rowan Abad THREAD WINDER CHEMISTRY & BLOOD GA S ORDERABLES [facility] [address] [place] [address] documented in this encounter Visit Diagnoses Not on filedocumented in this encounter Care Teams Military Communications Specialist Relationship Specialty Start Date End Date Katia Stone, PABijalC [address] [place] [phone] PCP - General 05/02/17 documented as of this encounter
--- OUTSIDE RECORDS SUMMARY | 2023-09-22 18:55 | XMS_ITS | Encounter Summary ---
Author Organization [facility] Address [address] [place] [address] Care Team Providers Care Wooden Furniture Polisher Name Role Phone Katia Stone PA-C Primary Care Provider +1- [phone] Encounter Details Date Type Department Care Team (Late st Contact Info) Description 09/15/2020 Results Only [facility] [address] [place] [address] Junior Ray MD [address] [place] [address] Social History Tobacco Use Types [...] Associated Diagnosis Comments COMPLETE BLOOD COUNT Routine 09/15/2020 5:25 EDT documented in this encounter Results * (ABNORMAL) COMPLETE BLOOD COUNT (09/15/2020 5:25 EDT) WBC 6.7 4.0 - 10.5 10 3/uL 09/15/2020 5:45 [facility] RBC 3.26(L) 4.70 - 6.00 10 6/uL 09/15/2020 5:45 [facility] Hemoglobin 11.2(L) 13.5 - 18.0 g/dL 09/15/2020 5:45 [facility] HCT 31.9(L) 42.0 - 52.0 % 09/15/2020 5:45 [facility] MCV 97.9 78 - 100 fL 09/15/2020 5:45 [facility] MCH 34.4(H) 27 - 31 pg 09/15/2020 5:45 [facility] MCHC 35.1 32 - 37 g/dL 09/15/2020 5:45 [facility] RDW-CV - PMC 12.4 <14.7 % 09/15/2020 5:45 [facility] PLATELET COUNT - PMC 256 150 - 450 10 3/uL 09/15/2020 5:45 [facility] MPV 10.6 9.2 - 12.0 fL 09/15/2020 5:45 [facility] 09/15/2020 5:25 EDT 09/15/2020 5:28 EDT Junior Ray MD HEMATOLOGY & PF4 OR DERABLES [facility] [address] [place] [address] documented in this encounter Visit Diagnoses Not on filedocumented in this encounter Care Teams Wooden Furniture Polisher Relationship Specialty Start Date End Date Katia Stone, PABijalC [address] [place] [phone] PCP - General 05/02/17 documented as of this encounter
--- OUTSIDE RECORDS SUMMARY | 2023-09-22 18:55 | XMS_ITS | Encounter Summary ---
Author Organization [facility] Address [address] [place] [address] Care Team Providers Care Meat Carrier Name Role Phone Katia Stone PA-C Primary Care Provider +1- [phone] Encounter Details Date Type Department Care Team (Late st Contact Info) Description 09/06/2020 Results Only [facility] [phone] Rowan Abad, TAIWO [address] [place] [phone] Social History Tobacco Use Types Packs/Day [...] Comments CREATININE WITH GFR - PMC Routine 09/06/2020 5:05 EDT PLATELET COUNT Routine 09/06/2020 5:05 EDT documented in this encounter Results * PLATELET COUNT (09/06/2020 5:05 EDT) Pathologist [facility] PLATELET COUNT - [facility] 236 150 - 450 10 3/uL 09/06/2020 5:55 EDT [facility] 09/06/2020 5:05 EDT 09/06/2020 5:32 EDT Narrative [facility] - 09/06/2020 5:58 EDT Comment ENOXAPARIN MONITORING Rowan Abad NP HEMATOLOGY & PF4 ORD ERABLES Performing Organization Address City/State/[facility] Co de Phone Number [facility] [address] [place] [address] * (ABNORMAL) CREATININE WITH GFR - PMC (09/06/2020 5:05 EDT) Pathologist [facility] Creatinine 0.60(L) 0.70 - 1.30 mg/dl 09/06/2020 5:52 EDT [facility] Estimated GFR >60 >60 09/06/2020 5:52 EDT [facility] Comment: EGFR UNITS: mL/min/1.73 m 2 CKD-EPI Equation used to calculate. 09/06/2020 5:05 EDT 09/06/2020 5:32 EDT Rowan Abad NP CHEMISTRY & BLOOD GA S ORDERABLES [facility] [address] [place] [address] documented in this encounter Visit Diagnoses Not on filedocumented in this encounter Care Teams Meat Carrier Relationship Specialty Start Date End Date Katia Stone, MINGO [address] [place] [phone] PCP - General 05/02/17 documented as of this encounter
--- OUTSIDE RECORDS SUMMARY | 2023-09-22 18:55 | XMS_ITS | Encounter Summary ---
Author Organization [facility] Address [address] [place] [address] Care Team Providers Care Induction Furnace Operator Name Role Phone Katia Stone PA-C Primary Care Provider +1- [phone] Encounter Details Date Type Department Care Team (Late st Contact Info) Description 08/20/2020 Results Only [facility] [address] [place] [address] Marilyn Hood MD [address] [place] [address] Social History Tobacco Use Types [...] Procedure Name Priority Date/Time Associated Diagnosis Comments ADD ON TEST REQUEST - PMC Routine 08/20/2020 12:51 EDT documented in this encounter Results * ADD ON TEST REQUEST - PMC (08/20/2020 12:51 EDT) Special Requests ADD ON DONE 08/20/2020 12:[address] [facility] Comment: All tests (see tests in sample comments) have been added as requested. 08/20/2020 12:5 1 EDT 08/20/2020 12:[address] [facility] - 08/20/2020 12:58 EDT today on the med/surg Magnesium Marilyn Hood MD CHEMISTRY & BLO OD GAS ORDERABLES Performing Organization Address City/State/[facility] Co de Phone Number [facility] [address] [place] [address] documented in this encounter Visit Diagnoses Not on filedocumented in this encounter Care Teams Induction Furnace Operator Relationship Specialty Start Date End Date Katia Stone, PABijalC [address] [facility] [place] [place] [phone] PCP - General 05/02/17 documented as of this encounter
--- OUTSIDE RECORDS SUMMARY | 2023-09-22 18:55 | XMS_ITS | Encounter Summary ---
Author Organization [facility] Address [address] [place] [address] Care Team Providers Care Police Lieutenant Name Role Phone Katia Stone PA-C Primary Care Provider +1- [phone] Reason for Visit * Reason Onset Date Comments Discuss Possible Transfer 06/20/2021 Encounter Details Date Type Department Care Team (Late st Contact Info) Description 06/20/2021 Telephone [facility] [address] [place], [place] [phone] Amos Romero MD [address] [phone] Discuss Possible Transfer Social History Tobacco Use Types Packs/Day Years [...] No 06/12/2017 documented as of this encounter Miscellaneous Notes * Telephone Encounter - Amos Romero MD - 06/20/2021 1415 EDT PPS Call Requesting Facility: [facility] Requesting Provider: Dr. Alegria Date: 06/20/21 Time of Call: 14:15 History: 70yoM from nursing facility hx of complete heart block s/p PPM, COPD, chronic etoh abuse who presented with 1-2 weeks colicky abdominal pain. He specifically does not complain of chest pain nor respiratory issues. Has been reticent to undergoing surgeries in the past (per chart review) butapparently is willing to undergo laparoscopic cholecystectomy. Vitals: 112/64, pulse 63, rr 16, afebrile, SaO2 94 on RA Labs: Sodium 123 K 3.7 BUN 39 Cr 1 Wbc 14k Hgb 11.3 Plt 271 AST 61 ALT 121 Bili pending (?) Alk phos [address] a/p with contrast: pericholecystitic fluid+inflammation consistent with acute cholecystitis, also incidentally noted L complex-appearing pleural effusion (per read from imaging 08/08/20 from [facility], this is chronic) and R iliac + gluteal fluid [...] chronicity lack of associated symptosm for the incidentalfindings on CT as I'm not entirely clear why they would posit a contraindication to undergoing general anesthesia -should their surgeons continue to have concerns, they should discuss the case with ACS here Amos Romero MD Internal Medicine Hospitalist documented in this encounter Plan of Treatment Not on file documented as of this encounter Visit Diagnoses Not on filedocumented in this encounter Care Teams Police Lieutenant Relationship Specialty Start Date End Date Katia Stone, PABijalC [address] [place] [phone] PCP - General 05/02/17 documented as of this encounter
--- OUTSIDE RECORDS SUMMARY | 2023-09-22 18:55 | XMS_ITS | Referral Summary ---
Author Organization [facility] Address [address] [place] [address] Care Team Providers Care Chief Informatics Officer Name Role Phone Katia Stone PA-C Primary Care Provider +1- [phone] Encounters Date Type Department Care Team Description 08/17/2023 Lab Requisition [facility] Pathology & Laboratory Medicine [address] [address] Outr Resulting Lab, Provider 08/17/2023 Lab Requisition [facility] Pathology & Laboratory [facility] [address] [place] [address] Outr Resulting Lab, Provider from Last 3 Months Allergies No known active allergies Medications Medication Sig Dispensed Refills Start Date End Date Status acetaminophen (TYLENOL) 500 mg tablet Take 1,000 mg by mouth 2 times daily. Active colchicine (COLCRYS) 0.6 mg tablet Take 1 Tab by mouth 2 times daily. 60 Tab 05/27/2017 Active torsemide (DEMADEX) 20 mg tablet Take 2 Tabs by mouth daily. 60 Tab 2 05/27/2017 Active metoprolol (LOPRESSOR) 25 mg tablet Take 1 Tab by mouth 2 times daily. 60 Tab 3 06/16/2017 Active predniSONE (DELTASONE) 20 mg tablet Take 30mg (20+10) 06/17-06/30; 20mg (20) 07/01-07/14; 10mg (10) 07/15-07/28; 5mg (1/2 of 10) 07/29-08/04 28 Tab 06/16/2017 Active predniSONE (DELTASONE) 10 mg tablet Take 30mg (20+10) 06/17-06/30; 20mg (20) 07/01-07/14; 10mg (10) 07/15-07/28; 5mg (1/2 of 10) 07/29-08/04 32 Tab 06/16/2017 Active ibuprofen (MOTRIN) 200 mg tablet Take 180 mg by mouth 2 times daily. Active omeprazole (PRILOSEC) 20 mg capsule Take 20 mg by mouth daily. 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 Hypertensive urgency 05/01/2017 Heart block AV third degree ([facility]) 04/30/2017 Resolved Problems Problem Noted Date Diagnosed Date Resolved Date Acute on chronic diastolic c ongestive heart failure ([facility]) 05/01/2017 05/27/2017 Social History Tobacco Use Types Packs/Day Years Used Date Smoking Tobacco: Never Smokeless Tobacco: Never Tobacco Cessation:Counseling Given: Yes Alcohol Use Standard Drinks/Week Comments Yes 0 (1 standard drink = 0.6 oz pur e alcohol) whiskey-daily, 2 Interpersonal Safety Answer Date Record ed Physically Hurt Never 10/03/2019 Verbally Threaten Not on file 10/03/2019 Sex and Gender Information Value Date Recorded Sex Assigned at Not on file Gender Identity Male 06/08/2020 9:05 EDT Sexual Orientation Not on file Last Filed Vital Signs [...] Body Mass Index 29.84 06/19/2020 1612 EDT Functional Status Functional Status Response Date of [...] (5 years old or older) No 06/12/2017 Plan of Treatment Not on file Medical Devices Implanted Type Area Gang Hemstitching Machine Operator Device Identifier Shelf Expiration Date Model / Serial / Lot [id number] ChartWise Medical Systems Mri - [id number] Implanted:05/02 (Quantity not on file) Lead [employer] 7742 Assay DepotEVITY MRI / [id number] / Description:Implant record l oaded by IMP Chronicles import. 3830 Selectsecure Mri Surescan - [id number] Implanted:05/21 (Quantity not on file) Lead Medtronic 3830 SELECTSECURE MRI SURESCAN / [id number] / Description:Implant record l oaded by IMP Chronicles import. L111 Essentio Mri - [id number] Implanted:05/02 (Quantity not on file) Pacemaker [place] [employer] L111 ESSENTIO MRI / [id number] / Description:Implant record l oaded by IMP Chronicles import. Procedures Procedure Name Priority Date/Time Associated Diagnosis Comments OSMOLALITY, URINE Routine 08/16/2023 21: 50 EDT OSMOLALITY Routine 08/16/2023 20:10 EDT from Last 3 Months Results * OSMOLALITY, URINE (08/16/2023 21:50 EDT) Osmolality, Urine 347 150 - 1,150 mOsm/kg 08/17/2023 16:14 EDT [facility] Urine URINE / Unknown 08/16/2023 2 1:50 EDT 08/17/2023 16:03 EDT Provider Outr Resulting Lab URINALYSIS O RDERABLES Performing Organization Address [facility]/ZIP Co de Phone Number [facility] [address] [place], [place] [address] * (ABNORMAL) OSMOLALITY (08/16/2023 20:10 EDT) Osmolality, Serum 259(L) 275 - 295 mOsm/kg 08/17/2023 16:24 EDT [facility] Blood VENOUS BLOOD / Unknown 08/16/2023 20:10 EDT 08/17/2023 16:03 EDT Provider Outr Resulting Lab CHEMISTRY & BLOOD GAS ORDERABLES Performing Organization Address [facility]/ZIP Co de Phone Number [facility] [address] [place], [place] [address] from Last 3 Months Advance Directives For more information, please contact: [phone] * Full Code (Latest Code Status on File) Date Activated Date Inactivated Comments 06/12/2017 17:51 06/16/2017 19:03 Question Answer Comments Reason for decision includes: Full code consistent with overall plan of care Who participated in the discussion? Not Discusse d * Full Code Date Activated Date Inactivated Comments 05/21/2017 1:26 05/27/2017 16:51 Question Answer Comments Reason for decision includes: Full code consistent with overall plan of care Who participated in the discussion? Patient * Full Code Date Activated Date Inactivated Comments 04/30/2017 19:04 05/04/2017 20:19 Question Answer Comments Reason for decision includes: Full code consistent with overall plan of care Who participated in the discussion? Not Discusse d Care Teams Chief Informatics Officer Relationship Specialty Start Date End Date Katia Stone PA-C [address] [place] [phone] [facility] - General 05/02/17
--- OUTSIDE RECORDS SUMMARY | 2023-09-22 18:55 | XMS_ITS | Encounter Summary ---
Author Organization [facility] Address [address] [place] [address] Care Team Providers Care Hydro Operator Name Role Phone Katia Stone PA-C Primary Care Provider +1- [phone] Encounter Details Date Type Department Care Team (Late st Contact Info) Description 06/23/2021 Lab Requisition [facility] Pathology & Laboratory Medicine - [address] [id number] Outr Resulting Lab, Provider Social History Tobacco Use Types Packs/Day Years Used Date Smoking Tobacco: Never Assessed Interpersonal Safety Answer Date Record ed Physically [...] Date/Time Associated Diagnosis Comments OSMOLALITY, URINE Routine 06/23/2021 4:00 EDT documented in this encounter Results * OSMOLALITY, URINE (06/23/2021 4:00 EDT) Osmolality, Urine 509 150-1,150 mOsm/kg 06/23/2021 21:58 EDT [facility] Urine URINE SPECIMEN COLLECTION, CLEAN CATCH / Unknown 06/23/2021 4:00 EDT 06/23/2021 21:40 EDT Provider Outr Resulting Lab URINALYSIS O RDERABLES [facility] [address] [place] [address] documented in this encounter Visit Diagnoses Not on filedocumented in this encounter Additional Health Concerns Infection Onset Date Last Indicated Resolved Time RSV 01/31/2022 01/31/2022 02/10/2022 22:1 5 EST documented as of this encounter Care Teams Hydro Operator Relationship Specialty Start Date End Date Katia Stone, BELLAC [address] [place] [phone] PCP - General 05/02/17 documented as of this encounter
--- OUTSIDE RECORDS SUMMARY | 2023-09-22 18:55 | XMS_ITS | Encounter Summary ---
Author Organization [facility] Address [address] [place] [address] Care Team Providers Care Equipment Maintenance Technician Name Role Phone Katai Stone PA-C Primary Care Provider +1- [phone] Encounter Details Date Type Department Care Team (Late st Contact Info) Description 08/22/2020 Results Only [facility]- [facility] [phone] Rowan Abad, TAIWO [address] [place] [phone] Social History Tobacco Use Types Packs/Day [...] Comments COMPLETE BLOOD COUNT AND DIFFERENTIAL Routine 08/22/2020 5:30 EDT MAGNESIUM Routine 08/22/2020 5:30 EDT BASIC METABOLIC PANEL (BMP) Routine 08/22/2020 5:30 EDT documented in this encounter Results * MAGNESIUM (08/22/2020 5:30 EDT) Pathologist [facility] Magnesium 1.8 1.8 - 2.4 mg/dl 08/22/2020 6:03 T [facility] 08/22/2020 5:30 EDT 08/22/2020 5:39 EDT Rowan Abad NP CHEMISTRY & BLOOD GA S ORDERABLES [facility] [address] [place] [address] * (ABNORMAL) BASIC METABOLIC PANEL (BMP) (08/22/2020 5:30 EDT) Sodium 133(L) 136 - 145 mEq/L 08/22/2020 6:03 EDT [facility] Potassium 3.7 3.5 - 5.1 mEq/L 08/22/2020 6:03 [facility] Chloride 101 96 - 107 mEq/L 08/22/2020 6:03 [facility] CO2 Total 26.1 21 - 32 mEq/L 08/22/2020 6:03 [facility] Anion Gap 6.9 mEq/L 08/22/2020 6:03 [facility] BUN 8 7 - 25 mg/dl 08/22/2020 6:03 [facility] Creatinine 0.67(L) 0.70 - 1.30 mg/dl 08/22/2020 6:03 [facility] Estimated GFR >60 >60 08/22/2020 6:03 [facility] Comment: EGFR UNITS: mL/min/1.73 m 2 CKD-EPI Equation used to calculate. Glucose 94 74 - 106 mg/dl 08/22/2020 6:03 [facility] Calcium 8.2(L) 8.5 - 10.1 mg/dl 08/22/2020 6:03 [facility] 08/22/2020 5:30 EDT 08/22/2020 5:39 EDT Rowan Abad NP CHEMISTRY & BLOOD GA S ORDERABLES Performing Organization Address City/State/[facility] Co de Phone Number [facility] [address] [place] [address] * (ABNORMAL) COMPLETE BLOOD COUNT AND DIFFERENTIAL (08/22/2020 5:30 EDT) WBC 6.0 4.0 - 10.5 10 3/uL 08/22/2020 5:56 [facility] RBC 2.84(L) 4.70 - 6.00 10 6/uL 08/22/2020 5:56 [facility] Hemoglobin 10.0(L) 13.5 - 18.0 g/dL 08/22/2020 5:56 [facility] HCT 28.3(L) 42.0 - 52.0 % 08/22/2020 5:56 [facility] MCV 99.6 78 - 100 fL 08/22/2020 5:56 [facility] MCH 35.2(H) 27 - 31 pg 08/22/2020 5:56 [facility] MCHC 35.3 32 - 37 g/dL 08/22/2020 5:56 [facility] RDW-CV - PMC 14.3 <14.7 % 08/22/2020 5:56 [facility] PLATELET COUNT - PMC 209 150 - 450 10 3/uL 08/22/2020 5:56 [facility] MPV 11.7 9.2 - 12.0 fL 08/22/2020 5:56 [facility] NEUTROPHILS % (AUTO) - PMC 58.1 % 08/22/2020 5:56 [facility] LYMPHOCYTES % (AUTO) - PMC 22.9 % 08/22/2020 5:56 [facility] MONOCYTES % (AUTO) - PMC 14.4 % 08/22/2020 5:56 [facility] EOSINOPHILS % (AUTO) - PMC 3.3 NOT ESTABLISHED % 08/22/2020 5:56 [facility] BASOPHILS % (AUTO) - PMC 1.0 % 08/22/2020 5:56 [facility] Immature Granulocyte % (Auto) 0.3 % 08/22/2020 5:56 [facility] NUCLEATED RBC % (AUTO) - PMC 0.0 % 08/22/2020 5:56 [facility] NEUTROPHILS # (AUTO) - PMC 3.5 1.5 - 6.6 10 3/uL 08/22/2020 5:56 [facility] LYMPHOCYTES # (AUTO) - PMC 1.4 1.0 - 3.5 10 3/uL 08/22/2020 5:56 [facility] MONOCYTES # (AUTO) - PMC 0.9 <1.0 10 3/uL 08/22/2020 5:56 [facility] EOSINOPHILS # (AUTO) - PMC 0.2 <0.7 10 3/uL 08/22/2020 5:56 [facility] BASOPHILS # (AUTO) - PMC 0.1 <0.1 10 3/uL 08/22/2020 5:56 [facility] Absolute Immature Granulocyte 0.02 <0.06 10 3/uL 08/22/2020 5:56 [facility] DIFFERENTIAL METHOD Auto Differential 08/22/2020 5:41 [facility] 08/22/2020 5:30 EDT 08/22/2020 5:39 EDT Rowan Abad PLATE CONDITIONER PACKAGES & DNA PROBE ORDERABLES [facility] [address] [place] [address] documented in this encounter Visit Diagnoses Not on filedocumented in this encounter Care Teams Equipment Maintenance Technician Relationship Specialty Start Date End Date Katia Stone, PABijalC [address] [place] [phone] PCP - General 05/02/17 documented as of this encounter
--- OUTSIDE RECORDS SUMMARY | 2023-09-22 18:55 | XMS_ITS | Encounter Summary ---
Author Organization [facility] Address [address] [place] [address] Care Team Providers Care Upsetting Machine Operator Name Role Phone Katia Stone PA-C Primary Care Provider +1- [phone] Encounter Details Date Type Department Care Team (Late st Contact Info) Description 08/25/2020 Results Only [facility]- [facility] [phone] Rowan Abad, TAIWO [address] [place] [phone] Social History Tobacco Use Types Packs/Day [...] Procedure Name Priority Date/Time Associated Diagnosis Comments ORGANISM ID FROM PLATE - [facility] Routine 08/25/2020 14:15 EDT HSV (HERPES SIMPLEX VIRUS) MOLECULAR DETECTION, PCR Routine 08/25/2020 14:15 EDT CREATININE WITH GFR - PMC Routine 08/25/2020 6:09 EDT PLATELET COUNT Routine 08/25/2020 6:09 EDT documented in this encounter Results * (ABNORMAL) ORGANISM ID FROM PLATE - PMC (08/25/2020 14:15 EDT) GRAM SMEAR - PMC SEE NOTES(A) 08/27/2020 17:20 EDT [facility] Comment: RESULT: Few Neutrophils Present No bacteria seen SWATI RESULTS/ORGANISM ID - [facility] Few Usual skin jesi 08/27/2020 17:20 EDT [facility] Comment: Spec Description ?? Additional Information:: LEFT ARM Source:ARM Test [place] [id number] 08/25/2020 14:1 5 EDT 08/25/2020 14:34 EDT Narrative [facility] - 08/27/2020 17:20 EDT ARM LEFT ARM Rowan Abad NP MICROBIOLOGY - GENER AL ORDERABLES [facility] [address] [place] [address] * HERPES SIMPLEX VIRUS MOLECULAR DETECTION, PCR (08/25/2020 14:15 EDT) HERPES SIMPLEX VIRUS I DNA - PMC Negative Negative 08/26/2020 17:21 EDT [facility] HERPES SIMPLEX VIRUS 2 DNA - PMC Negative Negative 08/26/2020 19:39 EDT [facility] Comment: SOURCE:: ARM Spec Description ?? Additional Information:: LEFT ARM Source:LEFT ARM Test performed [place] [address] 08/25/2020 14:1 5 EDT 08/25/2020 14:[address] [facility] - 08/26/2020 19:39 EDT ARM LEFT ARM Rowan Abad NP MICROBIOLOGY - GENER AL ORDERABLES Performing Organization Address [facility] Co de Phone Number [facility] [address] [place] [address] * (ABNORMAL) CREATININE WITH GFR - PMC (08/25/2020 6:09 EDT) Pathologist [facility] Creatinine 0.60(L) 0.70 - 1.30 mg/dl 08/25/2020 7:10 EDT [facility] Estimated GFR >60 >60 08/25/2020 7:10 EDT [facility] Comment: EGFR UNITS: mL/min/1.73 m 2 CKD-EPI Equation used to calculate. 08/25/2020 6:09 EDT 08/25/2020 6:44 EDT Rowan Abad NP CHEMISTRY & BLOOD GA S ORDERABLES Performing Organization Address City/[facility]/ZIP Co de Phone Number [facility] [address] [place] [address] * PLATELET COUNT (08/25/2020 6:09 EDT) [facility] PLATELET COUNT - [facility] 326 150 - 450 10 3/uL 08/25/2020 7:02 EDT [facility] 08/25/2020 6:09 EDT 08/25/2020 6:[address] [facility] - 08/25/2020 7:06 EDT Comment ENOXAPARIN MONITORING Rowan Abad GENETIC TECHNOLOGIST HEMATOLOGY & PF4 ORD ERABLES [facility] [address] [place] [address] documented in this encounter Visit Diagnoses Not on filedocumented in this encounter Care Teams Upsetting Machine Operator Relationship Specialty Start Date End Date Katia Stone, MINGO [address] [facility] [place] [phone] PCP - General 05/02/17 documented as of this encounter
--- OUTSIDE RECORDS SUMMARY | 2023-09-22 18:55 | XMS_ITS | Encounter Summary ---
Author Organization [facility] Address [address] [place] [address] Care Team Providers Care Automobile Racer Name Role Phone Katai Stone PA-C Primary Care Provider +1- [phone] Encounter Details Date Type Department Care Team (Late st Contact Info) Description 03/13/2022 Lab Requisition [facility] Pathology & Laboratory Medicine - [address] [address] Outr Resulting Lab, Provider Social History Tobacco [...] Procedure Name Priority Date/Time Associated Diagnosis Comments LEGIONELLA ANTIGEN DETECTION, URINE Routine 03/12/2022 19:15 EST documented in this encounter Results * LEGIONELLA ANTIGEN DETECTION, URINE (03/12/2022 19:15 EST) Legionella Antigen Detection Negative Negative 03/13/2022 21:38 EST [facility] Urine URINE / Unknown 03/12/2022 1 9:15 EST 03/13/2022 17:44 EST Provider Outr Resulting Lab MICROBIOLOGY - GENERAL ORDERABLES Performing Organization Address City/State/[facility] Co de Phone Number [facility] [address] [place] [address] documented in this encounter Visit Diagnoses Not on filedocumented in this encounter Care Teams Automobile Racer Relationship Specialty Start Date End Date Katia Stone, PABijalC [address] [place] [phone] PCP - General 05/02/17 documented as of this encounter
--- OUTSIDE RECORDS SUMMARY | 2023-09-22 18:55 | XMS_ITS | Encounter Summary ---
Author Organization [facility] Address [address] [place] [address] Care Team Providers Care Field Application Engineer Name Role Phone Katia Stone PA-C Primary Care Provider +1- [phone] Encounter Details Date Type Department Care Team (Late st Contact Info) Description 09/02/2020 Results Only [facility]- [facility] [phone] Rowan Abad, TAIWO [address] [place] [phone] Social History Tobacco Use Types Packs/Day [...] Comments CREATININE WITH GFR - PMC Routine 09/02/2020 6:18 EDT PLATELET COUNT Routine 09/02/2020 6:18 EDT documented in this encounter Results * (ABNORMAL) CREATININE WITH GFR - PMC (09/02/2020 6:18 EDT) Creatinine 0.61(L) 0.70 - 1.30 mg/dl 09/02/2020 7:12 EDT [facility] Estimated GFR >60 >60 09/02/2020 7:12 EDT [facility] Comment: EGFR UNITS: mL/min/1.73 m 2 CKD-EPI Equation used to calculate. 09/02/2020 6:18 EDT 09/02/2020 6:44 EDT Rowan Abad NP CHEMISTRY & BLOOD GA S ORDERABLES Performing Organization Address City/[facility]/ZIP Co de Phone Number [facility] [address] [place] [address] * PLATELET COUNT (09/02/2020 6:18 EDT) PLATELET COUNT - [facility] 247 150 - 450 10 3/uL 09/02/2020 6:57 EDT [facility] 09/02/2020 6:18 EDT 09/02/2020 6:44 EDT Narrative [facility] - 09/02/2020 7:06 EDT Comment ENOXAPARIN MONITORING Rowan Abad NP HEMATOLOGY & PF4 ORD ERABLES [facility] [address] [place] [address] documented in this encounter Visit Diagnoses Not on filedocumented in this encounter Care Teams Field Application Engineer Relationship Specialty Start Date End Date Katia Stone, MINGO [address] [place] [phone] PCP - General 05/02/17 documented as of this encounter
--- OUTSIDE RECORDS SUMMARY | 2023-09-22 18:55 | XMS_ITS | Encounter Summary ---
Author Organization [facility] Address [address] [place] [address] Care Team Providers Care Rn Transfer Name Role Phone Katia Stone PA-C Primary Care Provider +1- [phone] Encounter Details Date Type Department Care Team (Late st Contact Info) Description 08/18/2020 Results Only [facility] [address] [place] [address] Junior Ray MD [address] [place] [address] Social History Tobacco Use Types [...] Associated Diagnosis Comments COMPLETE BLOOD COUNT Routine 08/18/2020 5:15 EDT BASIC METABOLIC PANEL (BMP) Routine 08/18/2020 5:15 EDT documented in this encounter Results * (ABNORMAL) BASIC METABOLIC PANEL (BMP) (08/18/2020 5:15 EDT) Sodium 138 136 - 145 mEq/L 08/18/2020 5:47 [facility] Potassium 3.3(L) 3.5 - 5.1 mEq/L 08/18/2020 5:47 [facility] Chloride 101 96 - 107 mEq/L 08/18/2020 5:47 [facility] CO2 Total 31.3 21 - 32 mEq/L 08/18/2020 5:47 [facility] Anion Gap 5.7 mEq/L 08/18/2020 5:47 [facility] BUN 9 7 - 25 mg/dl 08/18/2020 5:47 [facility] Creatinine 0.66(L) 0.70 - 1.30 mg/dl 08/18/2020 5:47 [facility] Estimated GFR >60 >60 08/18/2020 5:47 [facility] Comment: EGFR UNITS: mL/min/1.73 m 2 CKD-EPI Equation used to calculate. Glucose 86 74 - 106 mg/dl 08/18/2020 5:47 [facility] Calcium 8.0(L) 8.5 - 10.1 mg/dl 08/18/2020 5:47 [facility] 08/18/2020 5:15 EDT 08/18/2020 5:27 EDT Junior Ray MD CHEMISTRY & BLOOD G ORDERABLES Performing Organization Address City/[facility]/ZIP Co de Phone Number [facility] [address] [place] [address] * (ABNORMAL) COMPLETE BLOOD COUNT (08/18/2020 5:15 EDT) WBC 5.2 4.0 - 10.5 10 3/uL 08/18/2020 5:41 [facility] RBC 2.68(L) 4.70 - 6.00 10 6/uL 08/18/2020 5:41 [facility] Hemoglobin 9.4(L) 13.5 - 18.0 g/dL 08/18/2020 5:41 [facility] HCT 27.5(L) 42.0 - 52.0 % 08/18/2020 5:41 [facility] MCV 102.6(H) 78 - 100 fL 08/18/2020 5:41 [facility] MCH 35.1(H) 27 - 31 pg 08/18/2020 5:41 [facility] MCHC 34.2 32 - 37 g/dL 08/18/2020 5:41 [facility] RDW-CV - PMC 15.2(H) <14.7 % 08/18/2020 5:41 [facility] PLATELET COUNT - PMC 233 150 - 450 10 3/uL 08/18/2020 5:41 [facility] MPV 10.3 9.2 - 12.0 fL 08/18/2020 5:41 [facility] 08/18/2020 5:15 EDT 08/18/2020 5:27 EDT Junior Ray MD HEMATOLOGY & PF4 OR DERABLES Performing Organization Address City/[facility]/ZIP Co de Phone Number [facility] [address] [place] [address] documented in this encounter Visit Diagnoses Not on filedocumented in this encounter Care Teams Rn Transfer Relationship Specialty Start Date End Date Katia Stone, PABijalC [address] [place] [phone] PCP - General 05/02/17 documented as of this encounter
--- OUTSIDE RECORDS SUMMARY | 2023-09-22 18:55 | XMS_ITS | Encounter Summary ---
Author Organization [facility] Address [address] [place] [address] Care Team Providers Care Children'S Counselor Name Role Phone Katia Stone PA-C Primary Care Provider +1- [phone] Encounter Details Date Type Department Care Team (Late st Contact Info) Description 09/26/2020 Results Only [facility] [phone] Rowan Abad, TAIWO [address] [place] [phone] Social History Tobacco Use Types Packs/Day [...] Comments COMPLETE BLOOD COUNT AND DIFFERENTIAL Routine 09/26/2020 14:33 EDT MAGNESIUM Routine 09/26/2020 14:33 EDT BASIC METABOLIC PANEL (BMP) Routine 09/26/2020 14:33 EDT documented in this encounter Results * (ABNORMAL) MAGNESIUM (09/26/2020 14:33 EDT) Magnesium 1.7(L) 1.8 - 2.4 mg/dl 09/26/2020 15:12 EDT [facility] 09/26/2020 14:3 3 EDT 09/26/2020 14:54 EDT Rowan Abad NP CHEMISTRY & BLOOD GA S ORDERABLES [facility] [address] [place] [address] * (ABNORMAL) BASIC METABOLIC PANEL (BMP) (09/26/2020 14:33 EDT) Sodium 131(L) 136 - 145 mEq/L 09/26/2020 15:12 EDT [facility] Potassium 4.2 3.5 - 5.1 mEq/L 09/26/2020 15:12 [facility] Chloride 96 96 - 107 mEq/L 09/26/2020 15:12 EDT [facility] CO2 Total 30.9 21 - 32 mEq/L 09/26/2020 15:12 T [facility] Anion Gap 3.1 mEq/L 09/26/2020 15:12 [facility] BUN 10 7 - 25 mg/dl 09/26/2020 15:12 [facility] Creatinine 0.82 0.70 - 1.30 mg/dl 09/26/2020 15:12 [facility] Estimated GFR >60 >60 09/26/2020 15:12 [facility] Comment: EGFR UNITS: mL/min/1.73 m 2 CKD-EPI Equation used to calculate. Glucose 111(H) 74 - 106 mg/dl 09/26/2020 15:12 [facility] Calcium 8.6 8.5 - 10.1 mg/dl 09/26/2020 15:12 [facility] 09/26/2020 14:3 3 EDT 09/26/2020 14:54 EDT Rowan Abad NP CHEMISTRY & BLOOD GA S ORDERABLES Performing Organization Address City/State/[facility] Co de Phone Number [facility] [address] [place] [address] * (ABNORMAL) COMPLETE BLOOD COUNT AND DIFFERENTIAL (09/26/2020 14:33 EDT) WBC 7.3 4.0 - 10.5 10 3/uL 09/26/2020 15:08 [facility] RBC 3.30(L) 4.70 - 6.00 10 6/uL 09/26/2020 15:08 [facility] Hemoglobin 11.2(L) 13.5 - 18.0 g/dL 09/26/2020 15:08 [facility] HCT 32.0(L) 42.0 - 52.0 % 09/26/2020 15:08 [facility] MCV 97.0 78 - 100 fL 09/26/2020 15:08 [facility] MCH 33.9(H) 27 - 31 pg 09/26/2020 15:08 [facility] MCHC 35.0 32 - 37 g/dL 09/26/2020 15:08 [facility] RDW-CV - PMC 11.7 <14.7 % 09/26/2020 15:08 [facility] PLATELET COUNT - PMC 291 150 - 450 10 3/uL 09/26/2020 15:08 [facility] MPV 11.0 9.2 - 12.0 fL 09/26/2020 15:08 [facility] NEUTROPHILS % (AUTO) - PMC 59.3 % 09/26/2020 15:08 [facility] LYMPHOCYTES % (AUTO) - PMC 23.9 % 09/26/2020 15:08 [facility] MONOCYTES % (AUTO) - PMC 12.3 % 09/26/2020 15:08 [facility] EOSINOPHILS % (AUTO) - PMC 2.9 NOT ESTABLISHED % 09/26/2020 15:08 [facility] BASOPHILS % (AUTO) - PMC 1.0 % 09/26/2020 15:08 [facility] Immature Granulocyte % (Auto) 0.6 % 09/26/2020 15:08 [facility] NUCLEATED RBC % (AUTO) - PMC 0.0 % 09/26/2020 15:08 [facility] NEUTROPHILS # (AUTO) - PMC 4.3 1.5 - 6.6 10 3/uL 09/26/2020 15:08 [facility] LYMPHOCYTES # (AUTO) - PMC 1.7 1.0 - 3.5 10 3/uL 09/26/2020 15:08 [facility] MONOCYTES # (AUTO) - PMC 0.9 <1.0 10 3/uL 09/26/2020 15:08 [facility] EOSINOPHILS # (AUTO) - PMC 0.2 <0.7 10 3/uL 09/26/2020 15:08 [facility] BASOPHILS # (AUTO) - PMC 0.1 <0.1 10 3/uL 09/26/2020 15:08 [facility] Absolute Immature Granulocyte 0.04 <0.06 10 3/uL 09/26/2020 15:08 [facility] DIFFERENTIAL METHOD Auto Differential 09/26/2020 14:56 [facility] 09/26/2020 14:3 3 EDT 09/26/2020 14:54 EDT Rowan Abad VP [employer] & DNA PROBE ORDERABLES [facility] [address] [place] [address] documented in this encounter Visit Diagnoses Not on filedocumented in this encounter Care Teams Children'S Counselor Relationship Specialty Start Date End Date Katia Stone, BELLAC [address] [place] [phone] PCP - General 05/02/17 documented as of this encounter
--- OUTSIDE RECORDS SUMMARY | 2023-09-22 18:55 | XMS_ITS | Encounter Summary ---
Author Organization [facility] Address [address] [place] [address] Care Team Providers Care Data Technical Lead Name Role Phone Katia Stone PA-C Primary Care Provider +1- [phone] Encounter Details Date Type Department Care Team (Late st Contact Info) Description 09/10/2020 Results Only [facility] [phone] Rowan Abad, TAIWO [address] [place] [phone] Social History Tobacco Use Types Packs/Day [...] Comments CREATININE WITH GFR - PMC Routine 09/10/2020 5:40 EDT PLATELET COUNT Routine 09/10/2020 5:40 EDT documented in this encounter Results * PLATELET COUNT (09/10/2020 5:40 EDT) Pathologist [facility] PLATELET COUNT - PMC 250 150 - 450 10 3/uL 09/10/2020 6:29 EDT LAB 09/10/2020 5:40 EDT 09/10/2020 6:11 EDT Narrative LAB - 09/10/2020 6:49 EDT Comment ENOXAPARIN MONITORING Rowan Abad NP HEMATOLOGY & PF4 ORD ERABLES Performing Organization Address City/State/[facility] Co de Phone Number LAB [address] [place] [address] * (ABNORMAL) CREATININE WITH GFR - PMC (09/10/2020 5:40 EDT) Pathologist [facility] Creatinine 0.57(L) 0.70 - 1.30 mg/dl 09/10/2020 6:42 EDT LAB Estimated GFR >60 >60 09/10/2020 6:42 EDT LAB Comment: EGFR UNITS: mL/min/1.73 m 2 CKD-EPI Equation used to calculate. 09/10/2020 5:40 EDT 09/10/2020 6:11 EDT Rowan Abad NP CHEMISTRY & BLOOD GA S ORDERABLES LAB [address] [place] [address] documented in this encounter Visit Diagnoses Not on filedocumented in this encounter Care Teams Data Technical Lead Relationship Specialty Start Date End Date Katia Stone, MINGO [address] [place] [phone] PCP - General 05/02/17 documented as of this encounter
--- OUTSIDE RECORDS SUMMARY | 2023-09-22 18:55 | XMS_ITS | Encounter Summary ---
Author Organization [facility] Address [address] [place] [address] Care Team Providers Care Marine Diesel Mechanic Name Role Phone Katia Stone PA-C Primary Care Provider +1- [phone] Encounter Details Date Type Department Care Team (Late st Contact Info) Description 08/25/2020 Lab Requisition [facility] Pathology & Laboratory Medicine - [address] [address] Outr Resulting Lab, Provider Social History Tobacco [...] Procedure Name Priority Date/Time Associated Diagnosis Comments BACTERIAL CULTURE/SMEAR Routine 08/25/2020 14:15 EDT documented in this encounter Results * (ABNORMAL) BACTERIAL CULTURE/SMEAR (08/25/2020 14:15 EDT) Organism ID Few Usual skin jesi 08/27/2020 15:22 EDT [facility] Smear Few Neutrophils Present(A) 08/27/2020 15:22 EDT [facility] Smear No bacteria seen(A) 08/27/2020 15:22 EDT [facility] Swab ENTIRE UPPER LIMB / Unknown 08/25/2020 14:15 EDT 08/25/2020 21:17 EDT Provider Outr Resulting Lab MICROBIOLOGY - GENERAL ORDERABLES [facility] [address] [place] [address] documented in this encounter Visit Diagnoses Not on filedocumented in this encounter Additional Health Concerns Infection Onset Date Last Indicated Resolved Time RSV 01/31/2022 01/31/2022 02/10/2022 22:1 5 EST documented as of this encounter Care Teams Marine Diesel Mechanic Relationship Specialty Start Date End Date Katia Stone, PABijalC [address] [facility] [place] [id number] PCP - General 05/02/17 documented as of this encounter
--- OUTSIDE RECORDS SUMMARY | 2023-09-22 18:55 | XMS_ITS | Encounter Summary ---
Author Organization [facility] Address [address] [place] [address] Care Team Providers Care Giant Tire Repairer Name Role Phone Katia Stone PA-C Primary Care Provider +1- [phone] Encounter Details Date Type Department Care Team (Late st Contact Info) Description 04/30/2022 Lab Requisition [facility] Pathology & Laboratory Medicine - [address] [address] Ike Chahal MD [address] [place] [id number] Disorder of the skin and subcutaneous tissue, unspecified Social History Tobacco Use Types Packs/Day Years [...] Procedure Name Priority Date/Time Associated Diagnosis Comments SURGICAL PATHOLOGY Today 04/29/2022 14 :00 EST Disorder of the skin and subcutaneous tissue, unspecified documented in this encounter Results * SURGICAL PATHOLOGY (04/29/2022 14:00 EST) Note to Patient The following pathology results have been interpreted by your pathologist and may be available to you before your health provider has had the opportunity to review them. Please allow time for your provider to receive these results and explore management options, if applicable. 05/01/2022 14:29 [facility] Final Diagnosis A. SKIN OF NASAL TIP, EXCISION: - Dermal fibrosis, adipose accumulation, and edema with sebaceous hyperplasia and lymphoplasmacytic inflammation. See comment. 05/01/2022 14:29 [facility] Diagnosis Comment The histopathologic features, in the correct clinical setting, are most suggestive of rhinophyma. There is no evidence of malignancy. 05/01/2022 14:29 [facility] Attestation By the signature below, the attending physician certifies that they have 1) personally conducted a gross and/or microscopic examination of the described specimen(s), and/or personally interpreted the results of laboratory testing of the described specimen(s), and 2) personally rendered or confirmed the above diagnosis. 05/01/2022 14:29 [facility] at 1429 Microscopic Description Sections consist of a large polypoid portion of skin. The epidermis has focal areas of acanthosis with compact hyperkeratosis. The majority of the epidermis, however, is unremarkable. In some areas, there are down growths of squamous epithelium into the dermis forming cysts. These are surrounded by a moderately dense lymphoplasmacytic infiltrate. The dermis is expanded by fibrosis with fatty infiltration. There are areas of edema and vascular ectasia. Sebaceous glands are increased in number and are of variable size and shape. Some show direct continuity with overlying epidermis. 05/01/2022 14:29 [facility] Clinical History Nasal tip lesion; clinical diagnosis code: L98.9 05/01/2022 14:29 [facility] Gross Description A. Received in formalin labelled with proper patient identification (initials B, J) and nasal tip is a 3.0 x 2.5 x 1.8 cm polypoid excision of isbell skin. The margin is inked. Sectioning reveals isbell-white to yellow, somewhat cystic cut surfaces. The specimen is entirely submitted as follows: BLOCK LARIOS A1- edges, reverse en face A2-A7- 6 central sections GIRISH GOMEZ(ASCP) 04/30/2022 9:39 05/01/2022 14:29 [facility] Performing Lab [facility] 05/01/2022 14:29 [facility] Scanned Images 05/01/2022 14:29 [facility] Tissue TISSUE SPECIMEN FROM SKIN / Unknown 04/29/2022 14:00 EST 04/30/2022 9:00 EST Ike Chahal MD PATHOLOGY ORDERABLES [facility] [address] [place] [address] documented in this encounter Visit Diagnoses Diagnosis Disorder of the skin and subcutaneous tissue, unspecified documented in this encounter Care Teams Giant Tire Repairer Relationship Specialty Start Date End Date Katia Stone, BELLAC [address] [facility] [place] [place] [phone] PCP - General 05/02/17 documented as of this encounter
--- OUTSIDE RECORDS SUMMARY | 2023-09-22 18:55 | XMS_ITS | Clinical Summary ---
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 Hypertensive urgency 05/01/2017 Heart block AV third degree ([facility]) 04/30/2017 Resolved Problems Problem Noted Date Diagnosed Date Resolved Date Acute on chronic diastolic c ongestive heart failure ([facility]) 05/01/2017 05/27/2017 Encounters Date Type Department Care Team Description 08/17/2023 Lab Requisition [facility] Pathology & Laboratory [address] [address] Outr Resulting Lab, Provider 08/17/2023 Lab Requisition [facility] Pathology & Laboratory [address] [address] Outr Resulting Lab, Provider from Last 3 Months Surgical History Surgery Date Site/Laterality Comments PACEMAKER PLACEMENT 03/03/2017 - 03/02/2018 OTHER SURGICAL HISTORY 06/19/20 tumor removed from arm Medical History Medical History Date Comments Alcohol abuse Hyponatremia 01/2020 130 Pericardial effusion 06/19/20 pe ricarditis post pacer placement 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 Also lead rep ositioned 06/19/20 coming in for removal of lead due to infection (reason for pacer was complete heart block) Obesity 06/19/20 Patient unable to exercise 06/19 Shortness of breath 06/19/20 all the time since infection ?? Hypertension 160/90 06/19/20 on medication Heart murmur 06/19/20 Anemia H&H 11.3 and 31. 2 , 01/2020 Arthritis 06/19/20 legs History of general anesthesia woke up during aneshesia but did not feel anything with pacemaker surgery Poor dentition 06/19/20 not too many all messed up Complete heart block ([facility]) 0 06/19/20 now has pacemaker with infected lead CAD (coronary artery disease) per pt Community acquired pneumonia pt states i get pneumonia every year - feels like he has it now - had a collapsed lung whoel pacer issues per pt - Business Investor office aware Family History Medical History Relation [...] 9:05 EDT Sexual Orientation Not on file Obstetrics History Last Filed [...] Last Done Comments Hepatitis C Screen 1950 RSV Immunization ( o r 60+ Years) (1 - 1-dose 60+ series) 2010 Fall Risk Screening 10/06/2015 COVID-19 Vaccine (2022- season) 2022 Medical Devices Implanted Type Area Supervisor Pumping Station Device Identifier Shelf Expiration Date Model / Serial / Lot 7742 Four Interactive Mri - [id number] Implanted:05/02 (Quantity not on file) Lead [employer]ine[employer] 7742 Flaviar MRI / [id number] / Description:Implant record l oaded by HUMBERTO Arroyo import. 3830 Selectsecure Mri Surescan - [id number] Implanted:05/21 (Quantity not on file) Lead Medtronic 3830 SELECTSECURE MRI SURESCAN / [id number] / Description:Implant record l oaded by [employer] import. L111 Adrianentio Mri - [id number] Implanted:05/02 (Quantity not on file) Pacemaker [employer] L111 ESSENTIO MRI / [id number] / Description:Implant record l oaded by [employer] import. Procedures Procedure Name Priority Date/Time Associated Diagnosis Comments OSMOLALITY, URINE Routine 08/16/2023 21: 50 EDT OSMOLALITY Routine 08/16/2023 20:10 EDT from Last 3 Months Results * OSMOLALITY, URINE (08/16/2023 21:50 EDT) Osmolality, Urine 347 150 - 1,150 mOsm/kg 08/17/2023 16:14 EDT [facility] Urine URINE / Unknown 08/16/2023 2 1:50 EDT 08/17/2023 16:03 EDT Provider Outr Resulting Lab URINALYSIS O RDERABLES Performing Organization Address City/[facility]/ZIP Co de Phone Number [facility] [address] [place] [address] * (ABNORMAL) OSMOLALITY (08/16/2023 20:10 EDT) Osmolality, Serum 259(L) 275 - 295 mOsm/kg 08/17/2023 16:24 EDT [facility] Blood VENOUS BLOOD / Unknown 08/16/2023 20:10 EDT 08/17/2023 16:03 EDT Provider Outr Resulting Lab CHEMISTRY & BLOOD GAS ORDERABLES Performing Organization Address City/[facility]/ZIP Co de Phone Number [facility] [address] [place] [address] from Last 3 Months Advance Directives For more information, please contact: [phone] * Full Code (Latest Code Status on [...] the discussion? Not Discusse d Care Teams Special Education Professional Relationship Specialty Start Date End Date Katia Stone, BELLAC [address] [place] [phone] PCP - General 05/02/17
--- OUTSIDE RECORDS SUMMARY | 2023-09-22 18:55 | XMS_ITS | Encounter Summary ---
Author Organization [facility] Address [address] [place] [address] Care Team Providers Care Family Service Counselor Name Role Phone Katia Stone PA-C Primary Care Provider +1- [phone] Encounter Details Date Type Department Care Team (Late st Contact Info) Description 06/21/2021 Lab Requisition [facility] Pathology & Laboratory Medicine - [address] [address] Virginia Price, DO [address] [place] [address] Acute cholecystitis Social History Tobacco Use Types Packs/Day Years [...] Date/Time Associated Diagnosis Comments SURGICAL PATHOLOGY Today 06/21/2021 11 :58 EDT Acute cholecystitis documented in this encounter Results * SURGICAL PATHOLOGY (06/21/2021 11:58 EDT) Note to Patient The following pathology results have been interpreted by your pathologist and may be available to you before your health provider has had the opportunity to review them. Please allow time for your provider to receive these results and explore management options, if applicable. 06/26/2021 10:43 [facility] Final Diagnosis A. GALLBLADDER, CHOLECYSTECTOMY: - Acute and chronic erosive cholecystitis. 06/26/2021 10:43 [facility] Attestation There was significant resident/fellow involvement in the diagnostic evaluation of this case. By the signature below, the attending physician certifies that they have personally conducted a gross and/or microscopic examination of the described specimens and rendered or confirmed the above diagnosis. 06/26/2021 10:43 [facility] at 1043 Clinical History Cholecystitis 06/26/2021 10:43 [facility] Gross Description A. Received in formalin labelled with proper patient identification (initials B, J) and gallbladder bile is an intact gallbladder with an attached segment of cystic duct (7.3 x 4.5 x 3.5 cm). A cystic duct lymph node is not present. The serosa is mottled isbell-white to red-brown with chowdary-white adhesions. The mucosa is denuded red-brown and the wall is 0.2 cm in thickness. The cystic duct lumen is patent and measures 0.4 cm in diameter. The cystic duct margin is inked blue. No calculi are found within the gallbladder or free-floating within the container. Two risk control field representative sections and the en face cystic duct margin are submitted in A1. GIRISH GOMEZ(ASCP) 06/22/2021 7:58 06/26/2021 10:43 EDT [facility] Resident/Emile w: Chayo Chatman MD 06/26/2021 10:43 EDT [facility] Performing Lab [facility] 06/26/2021 10:43 EDT [facility] Scanned Images 06/26/2021 10:43 EDT [facility] Tissue ENTIRE GALLBLADDER / Unknown 06/21/2021 11:58 EDT 06/21/2021 17:30 EDT Virginia Price DO PATHOLOGY ORDERABLES [facility] [address] [place] [address] documented in this encounter Visit Diagnoses Diagnosis Acute cholecystitis documented in this encounter Additional Health Concerns Infection Onset Date Last Indicated Resolved Time RSV 01/31/2022 01/31/2022 02/10/2022 22:1 5 EST documented as of this encounter Care Teams Family Service Counselor Relationship Specialty Start Date End Date Katia Stone, MINGO [address] [place] [phone] PCP - General 05/02/17 documented as of this encounter
--- OUTSIDE RECORDS SUMMARY | 2023-09-22 18:56 | XMS_ITS | Encounter Summary ---
Author Organization [facility] Address [address] [place] [address] Care Team Providers Care Director Translation Name Role Phone Katia Stone PA-C Primary Care Provider +1- [phone] Reason for Visit * Reason Onset Date Comments Confirmation 05/08/2020 Encounter Details Date Type Department Care Team (Late st Contact Info) Description 05/08/[address] [facility] Cardiothoracic Surgery - [facility] [address] [place] [address] Ja Browne MD [address] [place] [phone] Confirmation Social History Tobacco Use Types Packs/Day Years Used Date Smoking Tobacco: Never Smokeless Tobacco: Never Interpersonal Safety Answer Date Record ed Physically Hurt Never 10/03/2019 Verbally Threaten Not on file 10/03/2019 Sex and Gender Information Value Date Recorded Sex Assigned at Not on file Gender Identity Male 06/08/2020 9:05 EDT Sexual Orientation Not on file COVID-19 Exposure Response Date Recorded In the last month, have you been in contact with someone who was confirmed or suspected to have Coronavirus / COVID-19? Yes 04/10/2020 11:05 EST documented as of this encounter Functional Status [...] encounter Miscellaneous Notes * Telephone Encounter - Melania Dumas - 05/08/2020 1128 EST Spoke with Walker higgins Hensley and confirmed patient's appointment with Dr. Browne for 05/16/2020 at 9:30 am. documented in this encounter Plan of Treatment Not on file documented as of this encounter Visit Diagnoses Not on filedocumented in this encounter Care Teams Director Translation Relationship Specialty Start Date End Date Katia Stone, PABijalC [address] [place] [phone] PCP - General 05/02/17 documented as of this encounter
--- OUTSIDE RECORDS SUMMARY | 2023-09-22 18:56 | XMS_ITS | Encounter Summary ---
Author Organization [facility] Address [address] [place] [address] Care Team Providers Care Regulatory Administrator Name Role Phone Katia Stone PA-C Primary Care Provider +1- [phone] Reason for Visit * Reason Onset Date Comments Pacemaker Problem 05/01/2020 Follow-up 05/03/2020 Encounter Details Date Type Department Care Team (Late st Contact Info) Description 05/01/2020 Telephone [facility] Cardiology - [address] [place], [place] [id number] Tony Rosenberg MD [address] [facility] [address] [place] [address] Pacemaker Problem; Follow-up Social History Tobacco Use Types Packs/Day Years [...] encounter Miscellaneous Notes * Telephone Encounter - Milo Devi - 05/03/2020 0909 EST Caller states that pt and piano case and bench assembler do not understand what is going on with pt's care. From after-visit notes 04/12, it is clear to tag writer that provider intends for pt to see Dr. Browne at [facility]. Caller, piano case and bench assembler, and pt are unaware of a referral being sent to [facility], and seem to think that provider is still following care. Please call pt and piano case and bench assembler directly to let them know exactly what the plan of care is. * Telephone Encounter - Brenda Bocanegra - 05/01/2020 1409 EST Spoke with Nila. We don't have much device information here as the patient is managed by [facility]. They are wanting follow up from Dr. Rsoenberg regarding the next steps for pt's device care. Told them I would see what I can do to help. * Telephone Encounter - Haja Pavon - 05/01/2020 1304 EST Nila @ [facility] called to follow-up on pacemaker issues (problems [...] documented as of this encounter Care Teams Regulatory Administrator Relationship Specialty Start Date End Date Katia Stone, PABijalC [address] [place] [id number] PCP - General 05/02/17 documented as of this encounter
--- OUTSIDE RECORDS SUMMARY | 2023-09-22 18:56 | XMS_ITS | Encounter Summary ---
Author Organization [facility] Address [address] [place] [address] Care Team Providers Care Registered Travel Nurse Name Role Phone Katia Stone PA-C Primary Care Provider +1- [phone] Encounter Details Date Type Department Care Team (Late st Contact Info) Description 08/08/2020 Results Only Imaging [facility] Radiology Results [address] [place] [phone] Tony Christy MD [address] [place] [address] Social History Tobacco Use [...] Procedure Name Priority Date/Time Associated Diagnosis Comments XR CHEST 2 VIEWS 08/08/2020 15:[address] ABDOMEN PELVIS W CONTRAST 08/08/2020 15:36 EDT documented in this encounter Results * XR CHEST 2 VIEWS (08/08/2020 15:36 EDT) Anatomical Region Laterality Modality Computed Radiogr aphy 08/08/2020 15:3 6 EDT Narrative 08/08/2020 15:36 EDT [facility] ?[address] ?[place] [address] ?Diagnostic Imaging Report ? Signed ? Patient Name:DAVID FARFAN ? Date of :1950 ?MR Number:[id number] ? Age:69 ?Sex:M ? Category: CR ?Date of Exam:08/08/20 ? Procedure: CR: Chest; Frontal/LAT views ? 564 ? Ordering Physician: Tony Christy MD ?Patient ? CC: ?? Katia Mccallum ?? Tony Christy MD ? PROCEDURE INFORMATION: ?? Exam: XR Chest ?? Exam date and time: 08/08/2020 3:36 PM ?? Age: 69 years old ?? Clinical indication: Shortness of breath; Additional info: SOB ? TECHNIQUE: ?? Imaging protocol: XR of the chest. ?? Views: 2 views. ? COMPARISON: ?? CT Thorax w/contrast 01/16/2020 2:46 PM ? FINDINGS: ?? 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 ? Lungs: Pleural plaques/calcifications along the lateral wall of the right ?? hemithorax. Bilateral linear opacities of fibrosis. No shahnaz infiltrates. ?? Pleural spaces: Unremarkable. No pleural effusion. No pneumothorax. ?? Heart/Mediastinum: Cardiac silhouette is enlarged. ?? Bones/joints: Unremarkable. ? IMPRESSION: ?? No infiltrates identified. Changes of fibrosis. Left-sided pleural effusion. ?? Cardiomegaly. Permanent pacemaker in place. ? Report signed by: Temo Son On 08/08/2020 ??19:38:05 ?? For any questions regarding this report, please contact the [facility] at [phone] ? Dictated by: Temo Son MD ?D/ 15 ?? 36 ?? Transcribed by: SSOMROV ?D/T: ? E-Signed by: Temo Son MD ?D/ 19 ?? 38 ?? Procedure Note Temo Son MD - 08/08/2020 [facility] [address] [address] Diagnostic Imaging Report Signed Patient Name:DAVID FARFAN FAccount Number:[id number] Date of :1950 MRNumber:[id number] Age:69 Sex:M Category: CR Date ofExam:08/08/20 Procedure: CR: Chest; Frontal/LAT viewsAccession: [id number] Ordering Physician: Tony Christy MD Patient CC: Katia Mccallum Joseph MD PROCEDURE INFORMATION: Exam: XR Chest Exam date and time: 08/08/2020 3:36 PM Age: 69 years old Clinical indication: Shortness of breath; Additional info: SOB TECHNIQUE: Imaging protocol: XR of the chest. Views: 2 views. COMPARISON: CT Thorax w/contrast 01/16/2020 2:46 PM FINDINGS: Tubes, catheters and devices: Permanent pacemaker in place. Lungs: Pleural plaques/calcifications along the lateral wall of the right hemithorax. Bilateral linear opacities of fibrosis. No shahnaz infiltrates. Pleural spaces: Unremarkable. No pleural effusion. No pneumothorax. Heart/Mediastinum: Cardiac silhouette is enlarged. Bones/joints: Unremarkable. IMPRESSION: No infiltrates identified. Changes of fibrosis. Left-sided pleuraleffusion. Cardiomegaly. Permanent pacemaker in place. Report signed by: Temo Son On 08/08/2020 19:38:05 For any questions regarding this report, please contact the [facility] at [phone] Dictated by: Temo Son MDD/ 15 36 Transcribed by: SSOMROVD/T: E-Signed by: Temo Son MDD/ 19 38 Tony Christy MD IMG DIAGNOSTIC DAWIT GING ORDERABLES * CT ABDOMEN PELVIS W CONTRAST (08/08/2020 15:36 EDT) Anatomical Region Laterality Modality Body, Abdomen, Pelvis, Abdomen and Pelvis Computed Tomography 08/08/2020 15:3 6 EDT Narrative 08/08/2020 15:36 EDT ?[facility]: [facility] ?[address] ?[place], [place] [address] ?Diagnostic Imaging Report ? Signed ? Patient Name:ADOLPH,DAVID Martinez ? Date of :1950 ?MR Number:[id number] ? Age:69 ?Sex:M ? Category: CT ?Date of Exam:08/08/20 ? Procedure: CT: Abd ?? Pelvis; wit cntrst ? 565 ? Ordering Physician: Tony Christy MD ?Patient ? CC: ?? Katia Mccallum ?? Tony Christy MD ? PROCEDURE INFORMATION: ?? Exam: CT Abdomen And Pelvis With Contrast ?? Exam date and time: 08/08/2020 3:36 PM ?? Age: 69 years old ?? Clinical indication: Abdominal pain; Generalized ? TECHNIQUE: ?? Imaging protocol: Computed tomography of the abdomen and pelvis with contrast. ?? Radiation optimization: All CT scans at this facility use at least one of these ?? dose optimization techniques: automated exposure control; mA and/or kV ?? adjustment per patient size (includes targeted exams where dose is matched to ?? clinical indication); or iterative reconstruction. ?? Contrast material: ISOVUE 370; Contrast volume: 88 ml; Contrast route: ?? INTRAVENOUS (IV); ? COMPARISON: ?? No relevant prior studies available. ? FINDINGS: ?? 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 ? Lungs: Linear opacities of fibrosis within the aerated portion of the right ?? lung base. ?? Pleural spaces: Calcified pleural plaques within visualized right lower ?? hemithorax. Left-sided pleural effusion, possibly loculated. ?? Heart: Mitral valve calcifications. ? Liver: Unremarkable. No mass. ?? Gallbladder and bile ducts: No calcified stones. No ductal dilation. ?? Pancreas: Unremarkable. No ductal dilation. ?? Spleen: Unremarkable. No splenomegaly. ?? Adrenal glands: Normal. No mass. ?? Kidneys and ureters: Unremarkable. No hydronephrosis. ?? Stomach and bowel: Small hiatal hernia containing proximal stomach. Liquid ?? contents and gas within colon, cannot rule out diarrhea. Colonic ?? diverticulosis. Dilated loops of small bowel containing fluid and gas, cannot ?? rule out mechanical bowel obstruction. Transition point is not identified. ?? Evaluation is limited without oral contrast. ?? Appendix: No evidence of appendicitis. ? Intraperitoneal space: No free air. No significant fluid collection. ?? Vasculature: No abdominal aortic aneurysm. ?? Lymph nodes: No enlarged lymph nodes. ?? Urinary bladder: Unremarkable as visualized. ?? Reproductive: Unremarkable as visualized. ?? Bones/joints: Healing fractures of the left 12th, 11th, 10th ribs. ? Degenerative changes within lumbar spine. ??L2 compression deformity, likely ?? chronic. ?? Soft tissues: Fluid collections within subcutaneous adipose tissues over the ?? right iliac bone, 3.7 x 5.1 centimetres an adjacent, possibly communicating ?? fluid collection measuring 2.9 by 2.4 cm. Right gluteal subcutaneous dense ?? focus measures 5.6 x 1.8 x 5.6 cm, cannot rule out a hematoma. Possible ?? subcutaneous adipose tissue hematomas over the left gluteal region, not well ?? seen. ? IMPRESSION: ?? 1. Dilated loops of small bowel containing fluid and gas, colonic distension, ?? overall findings may represent ileus. Liquid contents within distal colon and ?? rectum, possible diarrhea, correlate clinically. Mechanical small bowel ?? obstruction is less likely, however, cannot be entirely excluded. Evaluation is ?? limited without oral contrast. If clinically appropriate, consider oral ?? contrast and follow-up serial abdominal radiographs. ?? 2. Fluid collections within subcutaneous adipose tissues overlying the right ?? iliac bone, may represent seromas or old hematomas. Possible right gluteal ?? subcutaneous adipose tissue hematoma, 5.6 x 1.8 x 5.6 centimetres. ? Report signed by: Temo Son On 08/08/2020 ??19:36:24 ?? For any questions regarding this report, please contact the [facility] at [phone] ? Dictated by: Temo Son MD ?D/ 15 ?? 36 ?? Transcribed by: DEBRA ?D/T: ? E-Signed by: Temo Son MD ?D/ 19 ?? 36 ?? Procedure Note Temo Son MD - 08/08/2020 [facility]: [address] [address] Diagnostic Imaging Report Signed Patient Name:DAVID FARFAN FAccount Number:[id number] Date of :1950 MRNumber:[id number] Age:69 Sex:M Category: CT Date ofExam:08/08/20 Procedure: CT: Abd Pelvis; wit cntrstAccession: [id number] Ordering Physician: Tony Christy MD Patient CC: Katia Mccallum Joseph MD PROCEDURE INFORMATION: Exam: CT Abdomen And Pelvis With Contrast Exam date and time: 08/08/2020 3:36 PM Age: 69 years old Clinical indication: Abdominal pain; Generalized TECHNIQUE: Imaging protocol: Computed tomography of the abdomen and pelvis withcontrast. Radiation optimization: All CT scans at this facility use at least one ofthese dose optimization techniques: automated exposure control; mA and/or kV adjustment per patient size (includes targeted exams where dose ismatched to clinical indication); or iterative reconstruction. Contrast material: ISOVUE 370; Contrast volume: 88 ml; Contrast route: INTRAVENOUS (IV); COMPARISON: No relevant prior studies available. FINDINGS: Tubes, catheters and devices: Permanent pacemaker in place. Lungs: Linear opacities of fibrosis within the aerated portion of theright lung base. Pleural spaces: Calcified pleural plaques within visualized right lower hemithorax. Left-sided pleural effusion, possibly loculated. Heart: Mitral valve calcifications. Liver: Unremarkable. No mass. Gallbladder and bile ducts: No calcified stones. No ductal dilation. Pancreas: Unremarkable. No ductal dilation. Spleen: Unremarkable. No splenomegaly. Adrenal glands: Normal. No mass. Kidneys and ureters: Unremarkable. No hydronephrosis. Stomach and bowel: Small hiatal hernia containing proximal stomach.Liquid contents and gas within colon, cannot rule out diarrhea. Colonic diverticulosis. Dilated loops of small bowel containing fluid and gas,cannot rule out mechanical bowel obstruction. Transition point is notidentified. Evaluation is limited without oral contrast. Appendix: No evidence of appendicitis. Intraperitoneal space: No free air. No significant fluid collection. Vasculature: No abdominal aortic aneurysm. Lymph nodes: No enlarged lymph nodes. Urinary bladder: Unremarkable as visualized. Reproductive: Unremarkable as visualized. Bones/joints: Healing fractures of the left 12th, 11th, 10th ribs. Degenerative changes within lumbar spine. L2 compression deformity,likely chronic. Soft tissues: Fluid collections within subcutaneous adipose tissues overthe right iliac bone, 3.7 x 5.1 centimetres an adjacent, possiblycommunicating fluid collection measuring 2.9 by 2.4 cm. Right gluteal subcutaneousdense focus measures 5.6 x 1.8 x 5.6 cm, cannot rule out a hematoma. Possible subcutaneous adipose tissue hematomas over the left gluteal region, notwell seen. IMPRESSION: 1. Dilated loops of small bowel containing fluid and gas, colonicdistension, overall findings may represent ileus. Liquid contents within distal colonand rectum, possible diarrhea, correlate clinically. Mechanical small bowel obstruction is less likely, however, cannot be entirely excluded.Evaluation is limited without oral contrast. If clinically appropriate, consider oral contrast and follow-up serial abdominal radiographs. 2. Fluid collections within subcutaneous adipose tissues overlying theright iliac bone, may represent seromas or old hematomas. Possible rightgluteal subcutaneous adipose tissue hematoma, 5.6 x 1.8 x 5.6 centimetres. Report signed by: Temo Son On 08/08/2020 19:36:24 For any questions regarding this report, please contact the [facility] at [phone] Dictated by: Temo Son MDD/ 15 36 Transcribed by: PRADEEPVD/T: E-Signed by: Temo Son MDD/ 19 36 Tony Christy MD IMG CT ORDERABLES documented in this encounter Visit Diagnoses Not on filedocumented in this encounter Additional Health Concerns Infection Onset Date Last Indicated Resolved Time RSV 01/31/2022 01/31/2022 02/10/2022 22:1 5 EST documented as of this encounter Care Teams Registered Travel Nurse Relationship Specialty Start Date End Date Katia Stone, PA-C [address] [place] [id number] PCP - General 05/02/17 documented as of this encounter
--- OUTSIDE RECORDS SUMMARY | 2023-09-22 18:56 | XMS_ITS | Encounter Summary ---
Author Organization [facility] Address [address] [place] [address] Care Team Providers Care Tongue Binder Name Role Phone Katia Stone PA-C Primary Care Provider +1- [phone] Reason for Visit * Reason Onset Date Comments Other 05/16/2020 EKG results Encounter Details Date Type Department Care Team (Late st Contact Info) Description 05/16/2020 Telephone [facility] Cardiothoracic Surgery - [address] [address] Cat Sutherland RN Other (EKG results) Social History Tobacco Use Types Packs/Day Years [...] encounter Miscellaneous Notes * Telephone Encounter - Cat Sutherland RN - 05/16/2020 1506 EDT Patient had an EKG in January 2020. [facility] to fax [facility] to [phone][facility] I have routed our PA Salvador Roca to see if he wants to repeat on DOSA. documented in this encounter Plan of Treatment Not on file documented as of this encounter Visit Diagnoses Not on filedocumented in this encounter Care Teams Tongue Binder Relationship Specialty Start Date End Date Katia Stone, PA-C [address] [place] [id number] PCP - General 05/02/17 documented as of this encounter
--- OUTSIDE RECORDS SUMMARY | 2023-09-22 18:56 | XMS_ITS | Encounter Summary ---
Author Organization [facility] Address [address] [place] [address] Care Team Providers Care Principal Architectural Firm Name Role Phone Katia Stone PA-C Primary Care Provider +1- [phone] Encounter Details Date Type Department Care Team (Late st Contact Info) Description 08/09/2020 Results Only [facility] Dermatology - [facility] [place] [address] [place] [address] Virginia Quintana MD [address] [place] [address] Social History Tobacco Use Types Packs/Day Years [...] Comments COMPLETE BLOOD COUNT AND DIFFERENTIAL Routine 08/09/2020 5:35 EDT COMPREHENSIVE METABOLIC PANEL (CMP) Routine 08/09/2020 5:35 EDT C DIFFICILE TOXIN PCR, F > 2 YRS - PMC Routine 08/09/2020 3:24 EDT documented in this encounter Results * (ABNORMAL) COMPREHENSIVE METABOLIC PANEL (CMP) (08/09/2020 5:35 EDT) Sodium 128(L) 136 - 145 mEq/L 08/09/2020 6:09 [facility] Potassium 3.3(L) 3.5 - 5.1 mEq/L 08/09/2020 6:09 [facility] Chloride 90(L) 96 - 107 mEq/L 08/09/2020 6:09 [facility] CO2 Total 27.4 21 - 32 mEq/L 08/09/2020 6:09 [facility] Anion Gap 10.6 mEq/L 08/09/2020 6:09 [facility] BUN 11 7 - 25 mg/dl 08/09/2020 6:09 [facility] Creatinine 0.71 0.70 - 1.30 mg/dl 08/09/2020 6:09 [facility] Estimated GFR >60 >60 08/09/2020 6:09 [facility] Comment: EGFR UNITS: mL/min/1.73 m 2 CKD-EPI Equation used to calculate. Glucose 117(H) 74 - 106 mg/dl 08/09/2020 6:09 [facility] Calcium 8.3(L) 8.5 - 10.1 mg/dl 08/09/2020 6:09 [facility] CALCIUM,CORRECTE D - PMC 9.4 8.5 - 10.5 mg/dl 08/09/2020 6:24 [facility] BILIRUBIN - PMC 1.30(H) 0.00 - 1.00 mg/dl 08/09/2020 6:24 [facility] AST 62(H) 15 - 37 U/L 08/09/2020 6:24 [facility] ALT 46 16 - 63 U/L 08/09/2020 6:24 [facility] Alkaline Phosphatase 114 46 - 116 U/L 08/09/2020 6:24 [facility] Total Protein 6.7 6.4 - 8.2 g/dl 08/09/2020 6:24 [facility] Albumin 2.6(L) 3.4 - 5.0 g/dl 08/09/2020 6:24 [facility] GLOBULIN - PMC 4.1 g/dl 08/09/2020 6:24 [facility] ALBUMIN/GLOBULIN RATIO - PMC 0.6 08/09/2020 6:24 [facility] 08/09/2020 5:35 EDT 08/09/2020 5:44 EDT Virginia Quintana MD CHEMISTRY & BLOOD GA S ORDERABLES [facility] [address] [place] [address] * (ABNORMAL) COMPLETE BLOOD COUNT AND DIFFERENTIAL (08/09/2020 5:35 EDT) WBC 10.3 4.0 - 10.5 10 3/uL 08/09/2020 6:00 [facility] RBC 2.98(L) 4.70 - 6.00 10 6/uL 08/09/2020 6:00 [facility] Hemoglobin 10.6(L) 13.5 - 18.0 g/dL 08/09/2020 6:00 [facility] HCT 29.6(L) 42.0 - 52.0 % 08/09/2020 6:00 [facility] MCV 99.3 78 - 100 fL 08/09/2020 6:00 [facility] MCH 35.6(H) 27 - 31 pg 08/09/2020 6:00 [facility] MCHC 35.8 32 - 37 g/dL 08/09/2020 6:00 [facility] RDW-CV - PMC 13.8 <14.7 % 08/09/2020 6:00 [facility] PLATELET COUNT - PMC 179 150 - 450 10 3/uL 08/09/2020 6:00 [facility] MPV 11.6 9.2 - 12.0 fL 08/09/2020 6:00 [facility] NEUTROPHILS % (AUTO) - PMC 84.2 % 08/09/2020 6:00 [facility] LYMPHOCYTES % (AUTO) - PMC 7.2 % 08/09/2020 6:00 [facility] MONOCYTES % (AUTO) - PMC 8.0 % 08/09/2020 6:00 [facility] EOSINOPHILS % (AUTO) - PMC 0.0 % 08/09/2020 6:00 [facility] BASOPHILS % (AUTO) - PMC 0.1 % 08/09/2020 6:00 [facility] Immature Granulocyte % (Auto) 0.5 % 08/09/2020 6:00 [facility] NUCLEATED RBC % (AUTO) - PMC 0.0 % 08/09/2020 6:00 [facility] NEUTROPHILS # (AUTO) - PMC 8.7(H) 1.5 - 6.6 10 3/uL 08/09/2020 6:00 [facility] LYMPHOCYTES # (AUTO) - PMC 0.7(L) 1.0 - 3.5 10 3/uL 08/09/2020 6:00 [facility] MONOCYTES # (AUTO) - PMC 0.8 <1.0 10 3/uL 08/09/2020 6:00 EDT [facility] EOSINOPHILS # (AUTO) - PMC 0.0 <0.7 10 3/uL 08/09/2020 6:00 EDT [facility] Absolute Immature Granulocyte 0.05 <0.06 10 3/uL 08/09/2020 6:00 EDT [facility] DIFFERENTIAL METHOD Auto Differential 08/09/2020 5:46 EDT [facility] 08/09/2020 5:35 EDT 08/09/2020 5:44 EDT Virginia Quintana MD PACKAGES & DNA PROBE ORDERABLES Performing Organization Address City/State/[facility] Co de Phone Number [facility] [address] [place] [address] * C DIFFICILE TOXIN PCR, F > 2 YRS - PMC (08/09/2020 3:24 EDT) 08/09/2020 3:24 EDT 08/10/2020 5:39 EDT Comment:KWASI Narrative [facility] - 08/10/2020 6:26 EDT ----- ------- ?? RUN DATE: 08/10/20 ? [facility]: [facility] *LIVE* ? PAGE 1 ? RUN TIME: 625 ?Specimen Inquiry ? ----- ------- ?? PATIENT: DAVID FARFAN ? ACCT: [id number] LOC: ??MS ? U: [id number] ? AGE/SX: 69/M ? ROOM: 138 ?RE08/09/20 ?? REG DR: ??Ester Valerio MD ? : ?1950 ?? BED: ??1 ?DIS: ? STATUS: ADM Astrid ?TLOC: ? ----- ------- ? SPEC #: [id number] ?ALEX: 08/09/20-323 ? STATUS: ??COMP ? REQ #: [id number] ?RECD: 08/10/20 ? SUBM DR: Jennifer Tyson ? SOURCE: FEC-CDIF ?ENTR: 08/09/20 ? OTHR : Ester Valerio MD ? SPDESC: LIQUID FEC ? Katia Mccallum ? ORDERED: ??CDIF ? ----- ------- ?Procedure ? Result ? ----- ------- ?C DIFFICILE PCR,PATIENT >2 YRS ??Final ?Toxigenic C. diff result: ?? NEGATIVE for Toxigenic C. diff by Amplified DNA PCR. ?027/NAP1/BI Strain Result ?? Presumptive NEGATIVE identification of 027/NAP1/BI ?strain. ? ----- ------- ? END OF REPORT ? Virginia Quintana MD MICROBIOLOGY - GENER AL ORDERABLES [facility] [address] [place] [address] documented in this encounter Visit Diagnoses Not on filedocumented in this encounter Care Teams Principal Architectural Firm Relationship Specialty Start Date End Date Katia Stone, PABijalC [address] [place] [phone] PCP - General 05/02/17 documented as of this encounter
--- OUTSIDE RECORDS SUMMARY | 2023-09-22 18:56 | XMS_ITS | Encounter Summary ---
Author Organization [facility] Address [address] [place] [address] Care Team Providers Care Instructor Substitute Cosmetology Name Role Phone Katia Stone PA-C Primary Care Provider +1- [phone] Reason for Visit * Reason Onset Date Comments Other 06/07/[address] Surgery RN Other 06/08/2020 mailed pre-op in structions to patient Encounter Details Date Type Department Care Team (Late st Contact Info) Description 06/07/2020 Telephone [facility] Cardiothoracic Surgery - Main [place] [address] [place] [address] Ja Browne MD [address] [place] [phone] Other (questions for CT Surgery RN); Other (mailed pre-op instructions to patient) Social History Tobacco Use Types Packs/Day Years [...] * Telephone Encounter - Melania Dumas - 06/08/2020 1710 EDT Pre-op instructions mailed to patient at: [address] [place] [phone] Address updated in [facility]. * Telephone Encounter - Cat Sutherland RN - 06/07/2020 1526 EDT Called and left message for Maru Villalobos RN at [place] [facility] [employer] Representatives to get correct address (mailing address) for patient and then have changed in Registration as he doesn't live in [place] anymore. She was going to call us back but didn't so I asked her to call and speak with our OSS Melania Dumas so Melania can mail the pre-op instructions. I have routed JORGE Wagner. * Telephone Encounter - Cat Sutherland RN - 06/07/2020 1131 EDT Images from the original note were not included. Preoperative Instructions - Cardiac Surgery Patients Welcome to the Division of Cardiothoracic Surgery at the [facility]. We look forward to making your stay a safe, comfortable and pleasant experience. ??? Your surgery is scheduled on Friday June 26, 2020 check in time will be announced as soon as we have the time. We will call you. ??? Please plan to arrive at: As above ??? When you arrive you should report to Registration on Level 3 (street level), located near the Main Entrance of the [facility] Worker Center at the [facility]. Prior to surgery, you will be scheduled for an anesthesia pre-screen telephone call with the Pre-Operative Department ??? Your telephone call has been scheduled for: To Be Announced between To Be Announced and To Be Announced ??? If you do not receive an appointment for the pre-screen call within two days of this appointment, please contact our office at [phone]. We have included a local lodging list should you or your family require accommodations around the time of your surgery. Discounts may apply for family members of patients being hospitalized, please ask the hotel when booking. You should receive a [...] daily, continue the aspirin through surgery unless instructeddifferently. Avoid additional Aspirin or Aspirin- Containing Medications for 7 days prior to surgery. ??? Non-steroidal Anti-inflammatory medications such as Ibuprofen (Motrin, Advil, Aleve), Indomethacin, and Celebrex should be held for 3 days prior to your surgery. ??? All Vitamins, Supplements and Herbal Supplements should be discontinued 7 days prior to your surgery. Stop Saw [place] 14 days prior to surgery. ??? Acetaminophen (Tylenol) is an acceptable over the counter pain medication that may be taken right up to the day of surgery if needed. ??? If you have been prescribed Nitroglycerin, follow the Nitroglycerin instruction handout that has been provided. ??? If you are currently taking [...] CHANGED, CALL OUR OFFICE RIGHT AWAY AT [phone]) ??? Continue to take all of your other medications unless otherwise specified in these instructionstaking your regularly scheduled medications the day of [...] free clear liquids up until 3 hours before surgery. Clear liquids include: water, clear fruit juices, [...] and a second shower the day of thesurgery. ??? Apply the soap to a clean [...] device) that was provided in the days beforesurgery. You do not need to bring this [...] clothing. ??? Do not wear any nail yi, makeup, powder, lotion, deodorant or jewelry of [...] an illness, please inform our office so theSurgeon can adjust your surgery date if appropriate. ??? If you have been exposed to COVID (Miller Virus) contact our office. ??? You will have a COVID test that must be collected between 72 and 96 hours before the surgery date to ensure timely results. The Patient Access Center at [facility] will contact you with an appointment at [...] WITH AN APPOINTMENT CONTACT THE PATIENT ACCESS CENTERAT [phone]. ??? While waiting for your surgery, you should not participate in aerobic exercise, activities thatelevate your heart rate or bring on cardiac symptoms which may or may not include nausea, shortnessof breath, dizziness, fainting, or near fainting, sweating, pain or pressure in your chest, back, jaw, neck or arm. ??? If you have an Advance Directive, please bring a copy with you on the day of the surgery so that it may be added to your medical record. Post-Operative Information: ??? Your length of stay at the Hospital will depend upon the complexity of your surgery and your recovery process. As you near discharge, the Inpatient Team will normally inform you 24 hours in advance. ??? Purchase a thermometer, unless you already have one, automatic blood pressure cuff, and a scaleto measure your vital signs and weight following discharge. ??? Approximately 2-3 weeks post-operatively, you will follow-up with your Cardiothoracic Surgeon for a check-up. With your in-person office visit, please check in at Registration on Level 3 (street level of the [facility]) for this. Following check-in, you will have a chest x-ray done. Following thechest x-ray proceed to the Surgeon's office on Level 5 [facility] Surgery Outpatient office. Note: If for [...] listed below. The Division of Cardiothoracic Surgery [address] [place] [address] (Toll Free) MD Geovanni Toure MD Marek Polomsky, MD Chris Rokkas, MD /josh & ep 03/2020 * Telephone Encounter - Cat Sutherland RN - 06/07/[address] Surgery [place] Maru Villalobos, education coordinator at [facility] [phone] states patient's son and and is not on Adv Directive now. Questions call Maru Villalobos. Pre-Op Instructions mailed to patient and faxed to Maru [phone]. She will review with the patient and I will as well. Check in time for surgery on 06/26 has not been confirmed yet per our Fructose Loader. Maru will set up COVID test as he needs a pick up driver and he will also need a ride to [place] for surgery which she will arrange. * Telephone Encounter - Melania Dumas - 06/07/2020 1013 EDT Maru from [place] calling with questions for CT Surgery RN. Requesting return call to [phone], extension [phone]. documented in this encounter Plan of Treatment Not on file documented as of this encounter Visit Diagnoses Diagnosis Encounter for preoperative screening laboratory testing for COVID-19 virus- Primary documented in this encounter Care Teams Instructor Substitute Cosmetology Relationship Specialty Start Date End Date Katia Stone, PABijalC [address] [place] [phone] PCP - General 05/02/17 documented as of this encounter
--- OUTSIDE RECORDS SUMMARY | 2023-09-22 18:56 | XMS_ITS | Encounter Summary ---
Author Organization [facility] Address [address] [place] [address] Care Team Providers Care Daily Release And Dupe Printer Name Role Phone Katia Stone PA-C Primary Care Provider +1- [phone] Reason for Visit * Reason Comments Pacemaker Problem Encounter Details Date Type Department Care Team (Late st Contact Info) Description 04/12/2020 12:20 EST Office Visit [facility] Cardiology [address] [address] Tony Rosenberg MD [address] [place] [address] [place] [phone] Heart block AV third degree (HCC-CMS) (Primary Dx) Social History Tobacco Use Types Packs/Day Years [...] as of this encounter Progress Notes * Tony Rosenberg MD - 04/12/2020 1216 EST [facility] CARDIOLOGY - [employer] PROGRESS / FOLLOWUP NOTE - 04/12/2020 PROBLEM LIST 1. Third-degree heart block, status post dual chamber pacemaker insertion, complicated by pericardial effusion and need for 12-lead repositioning. 2. Hyponatremia. 3. RA lead failure. SUBJECTIVE: Mr Mera returns to the clinic at [facility] to discuss the issues surrounding his pacemaker. The atrial lead of the pacemaker has demonstrated significant noise The patient has complained of intermittent episodes of sharp [...] has had 2 recent hospitalizations, one at [facility] and the other at [facility] for treatment of hyponatremia. PHYSICAL EXAMINATION: [...] his atrial lead and the fact that it seems to have either a loose set screw or to be intermittently leaking current. The impedance is fine. I could not manipulate his upper extremity and get a significant change in his lead parameters. Nonetheless, I think it would be reasonable for him to have the atrial lead removed and replaced. Since the lead is 3 years old, this would need to be done in the operating room with the availabilityof using the laser as needed. I have asked Mr Mera to see my colleague, Dr Rogerio Browne, to set up lead extraction and new lead insertion. Thanks again for allowing me to participate in his care. Tony Rosenberg MD / CD Dictation ID: [id number] cc: documented in this encounter Plan of Treatment Not on file documented as of this encounter Visit Diagnoses Diagnosis 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, complete documented in this encounter Care Teams Daily Release And Dupe Printer Relationship Specialty Start Date End Date Katia Stone, MINGO [address] [place] [phone] PCP - General 05/02/17 documented as of this encounter
--- OUTSIDE RECORDS SUMMARY | 2023-09-22 18:56 | XMS_ITS | Encounter Summary ---
Author Organization [facility] Address [address] [place] [address] Care Team Providers Care Mosaic Worker Name Role Phone Katia Stone PA-C Primary Care Provider +1- [phone] Encounter Details Date Type Department Care Team (Late st Contact Info) Description 08/08/2020 Results Only [facility] [address] [place] [address] Tony Christy MD [address] [place] [address] Social History Tobacco Use Types [...] Comments COMPLETE BLOOD COUNT AND DIFFERENTIAL Routine 08/08/2020 20:42 EDT CORONAVIRUS COVID-19 PCR (PMC) Routine 08/08/2020 17:07 EDT BNP Routine 08/08/2020 16:47 EDT TROPONIN I Routine 08/08/2020 16:47 EDT COMPLETE BLOOD COUNT AND DIFFERENTIAL Routine 08/08/2020 16:47 EDT COMPREHENSIVE METABOLIC PANEL (CMP) Routine 08/08/2020 16:47 EDT documented in this encounter Results * (ABNORMAL) COMPLETE BLOOD COUNT AND DIFFERENTIAL (08/08/2020 20:42 EDT) WBC 7.6 4.0 - 10.5 10 3/uL 08/08/2020 20:51 [facility] RBC 3.15(L) 4.70 - 6.00 10 6/uL 08/08/2020 20:51 [facility] Hemoglobin 11.3(L) 13.5 - 18.0 g/dL 08/08/2020 20:51 [facility] HCT 31.4(L) 42.0 - 52.0 % 08/08/2020 20:51 [facility] MCV 99.7 78 - 100 fL 08/08/2020 20:51 [facility] MCH 35.9(H) 27 - 31 pg 08/08/2020 20:51 [facility] MCHC 36.0 32 - 37 g/dL 08/08/2020 20:51 [facility] RDW-CV - PMC 13.8 <14.7 % 08/08/2020 20:51 [facility] PLATELET COUNT - PMC 199 150 - 450 10 3/uL 08/08/2020 20:51 [facility] MPV 11.2 9.2 - 12.0 fL 08/08/2020 20:51 [facility] NEUTROPHILS % (AUTO) - PMC 81.3 % 08/08/2020 20:51 [facility] LYMPHOCYTES % (AUTO) - PMC 8.6 % 08/08/2020 20:51 [facility] MONOCYTES % (AUTO) - PMC 9.5 % 08/08/2020 20:51 [facility] EOSINOPHILS % (AUTO) - PMC 0.0 % 08/08/2020 20:51 [facility] BASOPHILS % (AUTO) - PMC 0.1 % 08/08/2020 20:51 [facility] Immature Granulocyte % (Auto) 0.5 % 08/08/2020 20:51 [facility] NUCLEATED RBC % (AUTO) - PMC 0.0 % 08/08/2020 20:51 [facility] NEUTROPHILS # (AUTO) - PMC 6.1 1.5 - 6.6 10 3/uL 08/08/2020 20:51 [facility] LYMPHOCYTES # (AUTO) - PMC 0.7(L) 1.0 - 3.5 10 3/uL 08/08/2020 20:51 [facility] MONOCYTES # (AUTO) - PMC 0.7 <1.0 10 3/uL 08/08/2020 20:51 [facility] EOSINOPHILS # (AUTO) - PMC 0.0 <0.7 10 3/uL 08/08/2020 20:51 [facility] Absolute Immature Granulocyte 0.04 <0.06 10 3/uL 08/08/2020 20:51 [facility] DIFFERENTIAL METHOD Auto Differential 08/08/2020 20:48 [facility] 08/08/2020 20:4 2 EDT 08/08/2020 20:46 EDT Tony Christy MD PACKAGES & DNA PRO BE ORDERABLES [facility] [address] [place] [address] * CORONAVIRUS COVID-19 PCR ([facility]) (08/08/2020 17:07 EDT) 08/08/2020 17:0 7 EDT 08/08/2020 17:11 EDT Comment:SWAB Narrative [facility] - 08/08/2020 18:36 EDT ----- ------- ?? RUN DATE: 08/08/20 ? [facility]: [facility] *LIVE* ? PAGE 1 ? RUN TIME: 1837 ?Specimen Inquiry ? ----- ------- ?? PATIENT: DAVID FARFAN ? ACCT: [id number] LOC: ??ED ? U: [id number] ? AGE/SX: 69/M ? ROOM: ?RE08/08/20 ?? REG DR: ??Tony Christy MD ?: ?1950 ?? BED: ? DIS: ? STATUS: REG ER ? TLOC: ? ----- ------- ? SPEC #: [id number] ?ALEX: 08/08/20 ? STATUS: ??COMP ? REQ #: [id number] ?RECD: 08/08/20 ? SUBM DR: Tony Christy MD ? SOURCE: NASAL SWAB ?ENTR: 08/08/20 ? OTHR DR: Katia Mccallum ? SPDESC: SWAB ? ORDERED: ??COVID-19 PMC ? ----- ------- ?Procedure ? Result ? ----- ------- ?COVID-19 PCR (PMC) ??Final ?Negative ?Negative results do not preclude 2019-nCoV infection and ?should not be used as the sole basis for treatment or other ?patient management decisions. Negative results must be ?combined with clinical observations, patient history, and ?epidemiological information. ?. ?This test has not been FDA cleared or approved. This test ?has been authorized by the FDA under a EUA for use by ?authorized laboratories. This test has been authorized only ?for detection of nucleic acid from 2019-nCoV, not for any ?other viruses or pathogens. This test is only authorized for ?the duration of the declaration that circumstances exist ?justifying the authorization of emergency use of in vitro ?diagnostic tests for detection and/or diagnosis of 2019-nCoV ?under section 563(b)(1) of Act, 21 U.S.C. ? 360bbb-3(b)(1), ?unless the authorization is terminated or revoked sooner. ?Testing performed on TeleFlip instrument ? ----- ------- ? END OF REPORT ? Tony Christy MD MICROBIOLOGY - GEN ERAL ORDERABLES Performing Organization Address [facility] Co de Phone Number [facility] [address] [place] [phone] * (ABNORMAL) BNP - PMC (08/08/2020 16:47 EDT) [facility] B-TYPE NATRIURETIC PEPTIDE - PMC 398(H) <100 pg/mL 08/08/2020 17:53 EDT [facility] 08/08/2020 16:4 7 EDT 08/08/2020 16:52 EDT Tony Christy MD CHEMISTRY & BLOOD GAS ORDERABLES Performing Organization Address [facility] de Phone Number [facility] [address] [place] [address] * TROPONIN I (08/08/2020 16:47 EDT) [facility] Troponin I (ng/mL) <0.050 0 - 0.056 ng/ml 08/08/2020 17:36 EDT [facility] Comment: Interpretation: The cutoff for an abnormal troponin result is set at the 99th percentile of a normal, healthy population. Elevated troponin values must always be interpreted in the context of the clinical presentation. Clinical correlation is required to determine if serial troponin measurements are appropriate. The results of this assay can be falsely lowered due to the consumption of Biotin. 08/08/2020 16:4 7 EDT 08/08/2020 16:52 EDT Tony Christy MD CHEMISTRY & BLOOD GAS ORDERABLES Performing Organization Address [facility] Co de Phone Number [facility] [address] [place] [phone] * (ABNORMAL) COMPREHENSIVE METABOLIC PANEL (CMP) (08/08/2020 16:47 EDT) [facility] Sodium 125(L) 136 - 145 mEq/L 08/08/2020 17:29 [facility] Potassium 2.9(L) 3.5 - 5.1 mEq/L 08/08/2020 17:29 [facility] Chloride 85(L) 96 - 107 mEq/L 08/08/2020 17:29 [facility] CO2 Total 26.2 21 - 32 mEq/L 08/08/2020 17:29 [facility] Anion Gap 13.8 mEq/L 08/08/2020 17:29 [facility] BUN 8 7 - 25 mg/dl 08/08/2020 17:29 [facility] Creatinine 0.67(L) 0.70 - 1.30 mg/dl 08/08/2020 17:29 [facility] Estimated GFR >60 >60 08/08/2020 17:29 [facility] Comment: EGFR UNITS: mL/min/1.73 m 2 CKD-EPI Equation used to calculate. Glucose 101 74 - 106 mg/dl 08/08/2020 17:29 [facility] Calcium 8.5 8.5 - 10.1 mg/dl 08/08/2020 17:29 [facility] CALCIUM,CORRECTE D - PMC 9.3 8.5 - 10.5 mg/dl 08/08/2020 17:29 [facility] BILIRUBIN - PMC 1.60(H) 0.00 - 1.00 mg/dl 08/08/2020 17:29 [facility] AST 90(H) 15 - 37 U/L 08/08/2020 17:29 [facility] ALT 62 16 - 63 U/L 08/08/2020 17:29 [facility] Alkaline Phosphatase 133(H) 46 - 116 U/L 08/08/2020 17:29 [facility] Total Protein 7.6 6.4 - 8.2 g/dl 08/08/2020 17:29 [facility] Albumin 3.0(L) 3.4 - 5.0 g/dl 08/08/2020 17:29 [facility] GLOBULIN - PMC 4.6 g/dl 08/08/2020 17:29 [facility] ALBUMIN/GLOBULIN RATIO - PMC 0.6 08/08/2020 17:29 [facility] 08/08/2020 16:4 7 EDT 08/08/2020 16:52 EDT Tony Christy MD CHEMISTRY & BLOOD GAS ORDERABLES [facility] [address] [place] [address] * (ABNORMAL) COMPLETE BLOOD COUNT AND DIFFERENTIAL (08/08/2020 16:47 EDT) WBC 7.3 4.0 - 10.5 10 3/uL 08/08/2020 17:14 [facility] RBC 3.32(L) 4.70 - 6.00 10 6/uL 08/08/2020 17:14 [facility] Hemoglobin 11.8(L) 13.5 - 18.0 g/dL 08/08/2020 17:14 [facility] HCT 32.9(L) 42.0 - 52.0 % 08/08/2020 17:14 [facility] MCV 99.1 78 - 100 fL 08/08/2020 17:14 [facility] MCH 35.5(H) 27 - 31 pg 08/08/2020 17:14 [facility] MCHC 35.9 32 - 37 g/dL 08/08/2020 17:14 [facility] RDW-CV - PMC 13.7 <14.7 % 08/08/2020 17:14 [facility] PLATELET COUNT - PMC 209 150 - 450 10 3/uL 08/08/2020 17:14 [facility] MPV 11.4 9.2 - 12.0 fL 08/08/2020 17:14 [facility] NEUTROPHILS % (AUTO) - PMC 81.9 % 08/08/2020 17:14 [facility] LYMPHOCYTES % (AUTO) - PMC 9.1 % 08/08/2020 17:14 [facility] MONOCYTES % (AUTO) - PMC 8.3 % 08/08/2020 17:14 [facility] EOSINOPHILS % (AUTO) - PMC 0.0 % 08/08/2020 17:14 [facility] BASOPHILS % (AUTO) - PMC 0.1 % 08/08/2020 17:14 [facility] Immature Granulocyte % (Auto) 0.6 % 08/08/2020 17:14 [facility] NUCLEATED RBC % (AUTO) - PMC 0.0 % 08/08/2020 17:14 [facility] NEUTROPHILS # (AUTO) - PMC 5.9 1.5 - 6.6 10 3/uL 08/08/2020 17:14 [facility] LYMPHOCYTES # (AUTO) - PMC 0.7(L) 1.0 - 3.5 10 3/uL 08/08/2020 17:14 [facility] MONOCYTES # (AUTO) - PMC 0.6 <1.0 10 3/uL 08/08/2020 17:14 [facility] EOSINOPHILS # (AUTO) - PMC 0.0 <0.7 10 3/uL 08/08/2020 17:14 [facility] Absolute Immature Granulocyte 0.04 <0.06 10 3/uL 08/08/2020 17:14 [facility] DIFFERENTIAL METHOD Auto Differential 08/08/2020 16:54 [facility] 08/08/2020 16:4 7 EDT 08/08/2020 16:52 EDT Tony Christy MD PACKAGES & DNA PRO BE ORDERABLES [facility] [address] [place] [address] documented in this encounter Visit Diagnoses Not on filedocumented in this encounter Care Teams Mosaic Worker Relationship Specialty Start Date End Date Katia Stone, MINGO [address] [place] [phone] PCP - General 05/02/17 documented as of this encounter
--- OUTSIDE RECORDS SUMMARY | 2023-09-22 18:56 | XMS_ITS | Encounter Summary ---
Author Organization [facility] Address [address] [place] [address] Care Team Providers Care Block Piler Name Role Phone Katia Stone PA-C Primary Care Provider +1- [phone] Encounter Details Date Type Department Care Team (Late st Contact Info) Description 01/14/2020 Results Only [facility] [phone] Jayesh Olmos MD [address] [place] [phone] Social History Tobacco Use Types Packs/Day [...] Procedure Name Priority Date/Time Associated Diagnosis Comments SODIUM Routine 01/14/2020 19:10 EST SODIUM Routine 01/14/2020 14:55 EST BASIC METABOLIC PANEL,RANDOM - PMC Routine 01/14/2020 5:30 EST COMPLETE BLOOD COUNT Routine 01/14/2020 5:30 EST MAGNESIUM Routine 01/14/2020 5:30 EST documented in this encounter Results * (ABNORMAL) SODIUM (01/14/2020 19:10 EST) Sodium 124(L) 136 - 145 mEq/L 01/14/2020 19:38 EST [facility] 01/14/2020 19:1 0 EST 01/14/2020 19:19 EST Jayesh Olmos MD CHEMISTRY & BLO OD GAS ORDERABLES Performing Organization Address [facility] Co de Phone Number [facility] [address] [place] [address] * (ABNORMAL) SODIUM (01/14/2020 14:55 EST) Sodium 125(L) 136 - 145 mEq/L 01/14/2020 15:17 EST [facility] 01/14/2020 14:5 5 EST 01/14/2020 14:59 EST Jayesh Olmos MD CHEMISTRY & BLO OD GAS ORDERABLES Performing Organization Address [facility]/ZIP Co de Phone Number [facility] [address] [place] [address] * (ABNORMAL) COMPLETE BLOOD COUNT (01/14/2020 5:30 EST) WBC 5.2 4.0 - 10.5 10 3/uL 01/14/2020 6:25 [facility] RBC 3.29(L) 4.70 - 6.00 10 6/uL 01/14/2020 6:25 [facility] Hemoglobin 11.5(L) 13.5 - 18.0 g/dL 01/14/2020 6:25 [facility] HCT 31.5(L) 42.0 - 52.0 % 01/14/2020 6:25 [facility] MCV 95.7 78 - 100 fL 01/14/2020 6:25 [facility] MCH 35.0(H) 27 - 31 pg 01/14/2020 6:25 [facility] MCHC 36.5(H) 32 - 36 g/dL 01/14/2020 6:25 [facility] RDW-CV - PMC 13.1 11.0 - 14.8 % 01/14/2020 6:25 [facility] PLATELET COUNT - PMC 156 150 - 450 10 3/uL 01/14/2020 6:25 [facility] 01/14/2020 5:30 EST 01/14/2020 5:54 [facility] - 01/14/2020 6:37 EST Sample collected from indwelling line by non-lab staff. Please Note: Obtaining blood specimens from indwelling lines or VADs may be a problem and a potential source of test error because of incomplete flushing of collection site resulting in contamination and/or dilution of the specimen contributing to inaccurate results. (NCCLS Standards H3-A5, page 21) Jayesh Olmos MD HEMATOLOGY & PF 4 ORDERABLES [facility] [address] [place] [address] * MAGNESIUM (01/14/2020 5:30 EST) Magnesium 2.0 1.8 - 2.4 mg/dl 01/14/2020 6:30 [facility] 01/14/2020 5:30 EST 01/14/2020 5:54 EST [facility] - 01/14/2020 6:33 EST Sample collected from indwelling line by non-lab staff. Please Note: Obtaining blood specimens from indwelling lines or VADs may be a problem and a potential source of test error because of incomplete flushing of collection site resulting in contamination and/or dilution of the specimen contributing to inaccurate results. (NCCLS Standards H3-A5, page 21) Jayesh Olmos MD CHEMISTRY & BLO OD GAS ORDERABLES [facility] [address] [place] [address] * (ABNORMAL) BASIC METABOLIC PANEL,RANDOM - PMC (01/14/2020 5:30 EST) Sodium 122(L) 136 - 145 mEq/L 01/14/2020 6:30 [facility] Potassium 4.0 3.5 - 5.1 mEq/L 01/14/2020 6:30 [facility] Chloride 89(L) 96 - 107 mEq/L 01/14/2020 6:30 [facility] CO2 Total 28.1 21 - 32 mEq/L 01/14/2020 6:30 [facility] Anion Gap 5.9 mEq/L 01/14/2020 6:30 [facility] BUN 11 7 - 25 mg/dl 01/14/2020 6:30 [facility] Creatinine 0.71 0.70 - 1.30 mg/dl 01/14/2020 6:30 [facility] Estimated GFR >60 >60 01/14/2020 6:30 [facility] Comment: EGFR UNITS: mL/min/1.73 m 2 CKD-EPI Equation used to calculate. Glucose 101 70 - 180 mg/dl 01/14/2020 6:30 [facility] Calcium 8.2(L) 8.5 - 10.1 mg/dl 01/14/2020 6:30 [facility] 01/14/2020 5:30 EST 01/14/2020 5:54 EST [facility] - 01/14/2020 6:33 EST Sample collected from indwelling line by non-lab staff. Please Note: Obtaining blood specimens from indwelling lines or VADs may be a problem and a potential source of test error because of incomplete flushing of collection site resulting in contamination and/or dilution of the specimen contributing to inaccurate results. (NCCLS Standards H3-A5, page 21) Jayesh Olmos MD CHEMISTRY & BLO OD GAS ORDERABLES [facility] [address] [place] [address] documented in this encounter Visit Diagnoses Not on filedocumented in this encounter Care Teams Block Piler Relationship Specialty Start Date End Date Katia Stone, PARosanna [address] [place] [phone] PCP - General 05/02/17 documented as of this encounter
--- OUTSIDE RECORDS SUMMARY | 2023-09-22 18:56 | XMS_ITS | Encounter Summary ---
Author Organization [facility] Address [address] [place] [address] Care Team Providers Care Adjunct Physical Education Instructor Name Role Phone Katia Stone PA-C Primary Care Provider +1- [phone] Reason for Visit * Reason Onset Date Comments Confirmation 06/19/2020 Encounter Details Date Type Department Care Team (Late st Contact Info) Description 06/19/2020 Telephone [facility] Cardiothoracic Surgery - [address] [address] Cat Sutherland RN Confirmation Social History Tobacco Use Types Packs/Day [...] the patient to call Maru Villalobos his Special Effects Person as she is arranging his rides for his COVID test and Surgery as well as his instructions for surgery. I also left Maru a message aswell. * Telephone Encounter - Alma Dhillon - 06/20/2020 0938 EDT FYI---Patient's Assistant Manager Pt calls to say she is not able to reach patient, but will continue to doso. * Telephone Encounter - Cat Sutherland RN - 06/19/[address] Surgery Update Pre-Op Nurse TISH Pastrana states patient doesn't have his pre-op instrucitons and was not understanding his medications. They were mailed to his new address by our [facility]. I did fax them previously as well to Maru Villalobos RN the patient's Special Effects Person at PCP office, which she did receive. Maru had stated previously that she is arranging a ride for the patient to his COVID test 3-4 days prior to surgery and also arranging ride to [facility] on the day of surgery and will assist in helping patient understand instructions. I have called Maru Villalobos RN and left her a message to call me back on 06/20. I will also call the patient on 06/20 New phone numbers for Maru: [phone] EXT#4, EXT#[phone] Or direct line = [phone] documented in this encounter Plan of Treatment Not on file documented as of this encounter Visit Diagnoses Not on filedocumented in this encounter Care Teams Adjunct Physical Education Instructor Relationship Specialty Start Date End Date Katia Stone, PABijalC [address] [place] [phone] PCP - General 05/02/17 documented as of this encounter
--- OUTSIDE RECORDS SUMMARY | 2023-09-22 18:56 | XMS_ITS | Encounter Summary ---
Author Organization [facility] Address [address] [place] [address] Care Team Providers Care Transformation Analyst Name Role Phone Katia Stone PA-C Primary Care Provider +1- [phone] Encounter Details Date Type Department Care Team (Late st Contact Info) Description 08/09/2020 Results Only [facility] Radiology Results [address] [place], [place] [address] Ester Valerio MD [address] [place] [address] [place] [address] Social History Tobacco Use Types Packs/Day Years [...] Name Priority Date/Time Associated Diagnosis Comments XR ABDOMEN 2 VIEWS 08/09/2020 8:33 EDT documented in this encounter Results * XR ABDOMEN 2 VIEWS (08/09/2020 8:33 EDT) Anatomical Region Laterality Modality Body Computed Radiogr aphy 08/09/2020 8:33 EDT Narrative 08/09/2020 16:38 EDT ?[facility] ?[address] ?[place] [address] ?Diagnostic Imaging Report ? Signed ? Patient Name:DAVID FARFAN ? Date of :1950 ?MR Number:[id number] ? Age:69 ?Sex:M ? Category: CR ?Date [...] ?? There is a curvilinear prominent loop of bowel overlying the ?? midabdomen that likely represents a loop of colon. This is not clearly ?? demonstrated on the prior exam. Rectal gas cannot be confirmed. No ?? abnormal soft tissue mass or free intraperitoneal air is noted. No ?? acute-appearing osseous abnormality is noted. ? Portions of an internal cardiac pacing device are demonstrated. There ?? is fairly pronounced pleural thickening on the right and to a lesser ?? extent on the left. ? The exam otherwise appears unremarkable. ? IMPRESSION: Multiple air-filled loops of bowel are once again ?? demonstrated. This includes a prominent loop of what likely represents ?? colon overlying the midabdomen. Unfortunately, developing volvulus is ?? not excluded. Clinical correlation advised. Repeat CT would be the ?? imaging study of choice for further evaluation. Findings have been ?? called to Ester Valerio at the time of interpretation. ? Dictated by: Love Erickson MD ?D/ 16 ?? 38 ?? Transcribed by: WCOBB ?D/ 1648 ?? E-Signed by: Love Erickson MD ?D/ 16 ?? 38 ?? Procedure Note Poncho Erickson MD - [facility]09[facility] [address] [address] Diagnostic Imaging Report Signed Patient Name:DAVID FARFAN FAccount Number:[id number] Date of :1950 MRNumber:[id number] Age:69 Sex:M Category: CR Date ofExam:08/09/20 Procedure: CR: Abd; 2 ViewsAccession: [id number] Ordering Physician: Ester Valerio MD Patient CC: Ester Valerio MD, Katelyn PA CR: Abd; 2 Views CLINICAL HISTORY: Ileus. COMPARISON: Earlier abdominal CT dated 08/08/2020. FINDINGS: Multiple air-filled loops of both large and small bowel are present. There is a curvilinear prominent loop of bowel overlying the midabdomen that likely represents a loop of colon. This is not clearly demonstrated on the prior exam. Rectal gas cannot be confirmed. No abnormal soft tissue mass or free intraperitoneal air is noted. No acute-appearing osseous abnormality is noted. Portions of an internal cardiac pacing device are demonstrated. There is fairly pronounced pleural thickening on the right and to a lesser extent on the left. The exam otherwise appears unremarkable. IMPRESSION: Multiple air-filled loops of bowel are once again demonstrated. This includes a prominent loop of what likely represents colon overlying the midabdomen. Unfortunately, developing volvulus is not excluded. Clinical correlation advised. Repeat CT would be the imaging study of choice for further evaluation. Findings have been called to Ester Valerio at the time of interpretation. Dictated by: Love Erickson MDD/ 16 38 Transcribed by: OBBD/ 1648 E-Signed by: Love Erickson MDD/ 16 38 Ester Valerio MD IMG DIAGNOSTIC I MAGING ORDERABLES documented in this encounter Visit Diagnoses Not on filedocumented in this encounter Additional Health Concerns Infection Onset Date Last Indicated Resolved Time RSV 01/31/2022 01/31/2022 02/10/2022 22:1 5 EST documented as of this encounter Care Teams Transformation Analyst Relationship Specialty Start Date End Date Katia Stone PA-C [address] [place] [address] PCP - General 05/02/17 documented as of this encounter
--- OUTSIDE RECORDS SUMMARY | 2023-09-22 18:56 | XMS_ITS | Encounter Summary ---
Author Organization [facility] Address [address] [place] [address] Care Team Providers Care Combine Operator Name Role Phone Katia Stone PA-C Primary Care Provider +1- [phone] Reason for Visit * Reason Onset Date Comments Other 06/21/2020 patient wants to cancel surgery Encounter Details Date Type Department Care Team (Late st Contact Info) Description 06/21/2020 Telephone [facility] Cardiothoracic Surgery - [facility] [address] [place] [address] Ja Browne MD [address] [place], [place] [phone] Other (patient wants to cancel surgery) Social History Tobacco Use Types Packs/Day Years [...] with (Whitney). Pt was called by his Speech Therapist on 06/21 x 2 and finally Maru Villalobos the Speech Therapist sent the State Police to his house per Maru to do a welfare check as he doesn't follow instructions or return calls per Maru. He didn't go fora covid test and the ride was set up for him by Maru Speech Therapist and he cancelled it. He states he [...] have informed Dr. Browne and our schedulers. * Telephone Encounter - Melania Dumas - 06/21/2020 1350 EDT Nila (Moisture Tester) from [place] calling to advise that patient wants to cancel surgery on Friday06/26/2020 as he believes he has pneumonia. Per Nila, patient has not been seen by anyone and declinedcalling ambulance to take him to ED. documented in this encounter Plan of Treatment Not on file documented as of this encounter Visit Diagnoses Not on filedocumented in this encounter Care Teams Combine Operator Relationship Specialty Start Date End Date Katia Stone, MINGO [address] [place] [phone] PCP - General 05/02/17 documented as of this encounter
--- OUTSIDE RECORDS SUMMARY | 2023-09-22 18:56 | XMS_ITS | Encounter Summary ---
Author Organization [facility] Address [address] [place] [address] Care Team Providers Care Key Account Executive Name Role Phone Katia Stone PA-C Primary Care Provider +1- [phone] Reason for Visit * Reason Onset Date Comments Appointment Related 06/19/2020 Encounter Details Date Type Department Care Team (Late st Contact Info) Description 06/19/2020 Telephone [facility] Cardiothoracic Surgery - [facility] [address] [place] [address] Ja Browne MD [address] [place] [phone] Appointment Related Social History Tobacco Use Types Packs/Day Years [...] encounter Miscellaneous Notes * Telephone Encounter - Alma Dhillon - 06/19/2020 0858 EDT TC to Nila, Frame Aligner, at patient's PCP Office. She is aware that patient has a PAT appointment today between 4:00 and 4:45 pm with an Anesthesia Nurse. Patient is scheduled for surgery on 06/26 at 12:10 pm and should arrive in the Registration Department at 10:10 am. Frame Aligner states that patient has a COVID test scheduled for 06/22 at [facility]. New telephone number noted for Frame Aligner is [phone]. documented in this encounter Plan of Treatment Not on file documented as of this encounter Visit Diagnoses Not on filedocumented in this encounter Care Teams Key Account Executive Relationship Specialty Start Date End Date Katia Stone PA-C [address] [place] [phone] PCP - General 05/02/17 documented as of this encounter
--- OUTSIDE RECORDS SUMMARY | 2023-09-22 18:56 | XMS_ITS | Encounter Summary ---
Author Organization [facility] Address [address] [place] [address] Care Team Providers Care Automotive Salesperson Name Role Phone Katia Stone PA-C Primary Care Provider +1- [phone] Reason for Visit * Reason Onset Date Comments Appointment Related 02/07/2020 PA REQUEST Encounter Details Date Type Department Care Team (Late st Contact Info) Description 02/07/2020 Telephone [facility] Cardiology Clinic [address] [place] [address] Ulises Reinoso MD [address] [place] [address] Appointment Related (PA REQUEST) Social History Tobacco Use Types Packs/Day Years [...] encounter Miscellaneous Notes * Telephone Encounter - Isidra Edmonds - 02/07/2020 1330 EST MCR-NO PA REQUIRED NAVID-NO PA REQUIRED * Telephone Encounter - Arturo Herrera - 02/07/2020 1327 EST PA REQUEST ECHOCARDIOGRAM [id number] 02/29/20 DYSPNEA (R06.0) VITA LIVE THANK YOU! documented in this encounter Plan of Treatment Not on file documented as of this encounter Visit Diagnoses Not on filedocumented in this encounter Care Teams Automotive Salesperson Relationship Specialty Start Date End Date Katia Stone, PA-C [address] [place] [phone] PCP - General 05/02/17 documented as of this encounter
--- OUTSIDE RECORDS SUMMARY | 2023-09-22 18:56 | XMS_ITS | Encounter Summary ---
Author Organization [facility] Address [address] [place] [address] Care Team Providers Care Upper Marker Name Role Phone Katia Stone PA-C Primary Care Provider +1- [phone] Encounter Details Date Type Department Care Team (Late st Contact Info) Description 01/16/2020 Results Only [facility] [address] [place] [address] Unknown, Provider, Social History Tobacco Use Types Packs/Day [...] Diagnosis Comments BASIC METABOLIC PANEL (BMP) Routine 01/16/2020 7:07 EST documented in this encounter Results * (ABNORMAL) BASIC METABOLIC PANEL (BMP) (01/16/2020 7:07 EST) Sodium 129(L) 136 - 145 mEq/L 01/16/2020 7:26 [facility] Potassium 3.8 3.5 - 5.1 mEq/L 01/16/2020 7:26 [facility] Chloride 95(L) 96 - 107 mEq/L 01/16/2020 7:26 [facility] CO2 Total 27.5 21 - 32 mEq/L 01/16/2020 7:26 [facility] Anion Gap 7.5 mEq/L 01/16/2020 7:26 [facility] BUN 10 7 - 25 mg/dl 01/16/2020 7:26 [facility] Creatinine 0.64(L) 0.70 - 1.30 mg/dl 01/16/2020 7:26 [facility] Estimated GFR >60 >60 01/16/2020 7:29 [facility] Comment: EGFR UNITS: mL/min/1.73 m 2 CKD-EPI Equation used to calculate. Glucose 91 74 - 106 mg/dl 01/16/2020 7:26 [facility] Calcium 8.4(L) 8.5 - 10.1 mg/dl 01/16/2020 7:26 [facility] 01/16/2020 7:07 EST 01/16/2020 7:09 EST Provider Unknown CHEMISTRY & BLOOD GA S ORDERABLES Performing Organization Address City/State/[facility] Co de Phone Number [facility] [address] [place] [address] documented in this encounter Visit Diagnoses Not on filedocumented in this encounter Care Teams Upper Marker Relationship Specialty Start Date End Date Katia Stone, MINGO [address] [place] [phone] PCP - General 05/02/17 documented as of this encounter
--- OUTSIDE RECORDS SUMMARY | 2023-09-22 18:56 | XMS_ITS | Encounter Summary ---
Author Organization [facility] Address [address] [place] [address] Care Team Providers Care Scrum Product Owner Name Role Phone Katia Stone PA-C Primary Care Provider +1- [phone] Encounter Details Date Type Department Care Team (Late st Contact Info) Description 07/28/2020 Results Only [facility] [address] [place], [place] [address] Katia Stone, MINGO [address] [place] [address] Social History Tobacco Use Types Packs/Day Years [...] Procedure Name Priority Date/Time Associated Diagnosis Comments MESSAGE - PMC Routine 07/28/2020 14:38 EDT IRON,TIBC,FERRITIN GROUP - PMC Routine 07/28/2020 14:38 EDT FOLATE Routine 07/28/2020 14:38 EDT VITAMIN B12 Routine 07/28/2020 14:38 EDT documented in this encounter Results * FOLATE (07/28/2020 14:38 EDT) Folate 9.0 >8.6 ng/mL 08/01/2020 9:08 EDT [facility] 07/28/2020 14:3 8 EDT 08/01/2020 9:03 EDT Katia Stone PA-C CHEMISTRY & BLOOD GAS ORDERABLES [facility] [address] [place] [address] * VITAMIN B12 (07/28/2020 14:38 EDT) Vitamin B12 265 193 - 986 pg/mL 08/01/2020 9:08 EDT [facility] Comment: The results of this assay can be falsely elevated due to the consumption of Biotin. 07/28/2020 14:3 8 EDT 08/01/2020 9:03 EDT Katia Stone PA-C CHEMISTRY & BLOOD GAS ORDERABLES Performing Organization Address City/[facility]/ZIP Co de Phone Number [facility] [address] [place] [phone] * (ABNORMAL) IRON,TIBC,FERRITIN GROUP - PMC (07/28/2020 14:38 EDT) Iron 158 65 - 175 mcg/dL 08/01/2020 9:08 EDT [facility] Iron Binding Capacity 212(L) 250 - 450 mcg/dL 08/01/2020 9:08 EDT [facility] PERCENT IRON SATURATION - PMC 75(H) 14 - 50 % 08/01/2020 9:08 EDT [facility] Ferritin >1,000(H) 26 - 388 ng/mL 08/01/2020 9:08 EDT [facility] 07/28/2020 14:3 8 EDT 08/01/2020 9:03 EDT Katia Stone PA-C CHEMISTRY & BLOOD GAS ORDERABLES Performing Organization Address [facility] Co de Phone Number [facility] [address] [place] [phone] * MESSAGE - PMC (07/28/2020 14:38 EDT) MESSAGE - PMC 07/29/2020 2:55 EDT [facility] Comment: WE HAVE NOT RECEIVED ORDERS. PLEASE SEND THEM TO US. THANK YOU. 07/28/2020 14:3 8 EDT 07/28/2020 15:49 EDT Narrative [facility] - 07/29/2020 2:55 EDT NO ORDERS TIGER AND LAV Katia Stone PA-C CHEMISTRY & BLOOD GAS ORDERABLES Performing Organization Address City/[facility]/ZIP Co de Phone Number [facility] [address] [place] [address] documented in this encounter Visit Diagnoses Not on filedocumented in this encounter Care Teams Scrum Product Owner Relationship Specialty Start Date End Date Katia Stone PA-C [address] [place] [phone] PCP - General 05/02/17 documented as of this encounter
--- OUTSIDE RECORDS SUMMARY | 2023-09-22 18:56 | XMS_ITS | Encounter Summary ---
Author Organization [facility] Address [address] [place] [address] Care Team Providers Care Waiter/Waitress Economy Class Name Role Phone Katia Stone PA-C Primary Care Provider +1- [phone] Encounter Details Date Type Department Care Team (Late st Contact Info) Description 01/16/2020 Results Only Imaging [facility] Radiology Results [address] [place] [address] Jayesh Olmos MD [address] [place] [address] Social History Tobacco Use Types [...] Name Priority Date/Time Associated Diagnosis Comments CT CHEST W CONTRAST 01/16/2020 1 3:19 EST XR CHEST 2 VIEWS 01/16/2020 9:51 EST documented in this encounter Results * CT CHEST W CONTRAST (01/16/2020 13:19 EST) Anatomical Region Laterality Modality Chest Computed Tomogra phy 01/16/2020 13:1 9 EST Narrative 01/16/2020 13:19 EST [facility] ?[address] ?[place] [address] ?Diagnostic Imaging Report ? Signed ? Patient Name:DAVID FARFAN ? Date of :1950 ?MR Number:[id number] ? Age:69 ?Sex:M ? Category: CT ?Date of Exam:01/16/20 ? Procedure: CT: Thorax; with contrast ? Ordering Physician: Nickolas ([facility])Jayesh MD ?Patient ? CC: ?? Emeterio Wynne MD ?? Jayesh Olmos MD ([facility]) ?? Katia Mccallum ? PROCEDURE INFORMATION: ?? Exam: CT Chest With Contrast ?? Exam date and time: 01/16/2020 1:19 PM ?? Age: 69 years old ?? Clinical indication: Abnormal findings; Abnormal radiologic exam of lung or ?? chest; Prior surgery; Additional info: Loculated left pleural effusion ? TECHNIQUE: ?? Imaging protocol: Computed tomography of the chest with intravenous contrast. ?? Radiation [...] ?? CR Chest; two view PA/Lat 01/16/2020 10:57 AM ? FINDINGS: ?? Lungs: See Pleural space finding. ?? Pleural space: Loculated left pleural effusion posterolaterally measures 11.7 ?? by 5.4 cm in greatest transverse dimension. Adjacent atelectasis noted within ?? the left lower lobe. Pleural thickening and coarse calcification within the ?? right hemithorax. No right pleural effusion. ?? Heart: Unremarkable. No cardiomegaly. No pericardial effusion. ?? Aorta: Unremarkable. No aortic aneurysm. ?? Lymph nodes: Unremarkable. No enlarged lymph nodes. ? Bones/joints: Unremarkable. No acute fracture. ?? Soft tissues: Unremarkable. ? IMPRESSION: ?? 1. Loculated left pleural effusion posterolaterally measures 11.7 by 5.4 cm in ?? greatest transverse dimension. Adjacent atelectasis noted within the left lower ?? lobe. ?? 2. Pleural thickening and coarse calcification within the right hemithorax. No ?? right pleural effusion. ? Report signed by: Brenda Dixon On 01/16/2020 ??15:28:37 ?? For any questions regarding this report, please contact the [facility] Operations Center at [phone] ? Dictated by: Brenda Dixon MD ?D/ ?? 1319 ?? Transcribed by: SERGEY ?D/T: ? E-Signed by: Brenda Dixon MD ?D/ ?? 1528 ?? Procedure Note Brenda Dixon MD - 02/01/2020 UVN: [address] [address] Diagnostic Imaging Report Signed Patient Name:DAVID FARFAN FAccount Number:[id number] Date of :1950 MRNumber:[id number] Age:69 Sex:M Category: CT Date ofExam:01/16/20 Procedure: CT: Thorax; with contrastAccession: [id number] Ordering Physician: Nickolas ([facility])Jayesh MD Patient CC: Emeterio Wynne MD, Michael MD ([facility]) Katia Mccallum PROCEDURE INFORMATION: Exam: CT Chest With Contrast Exam date and time: 01/16/2020 1:19 PM Age: 69 years old Clinical indication: Abnormal findings; Abnormal radiologic exam of lungor chest; Prior surgery; Additional info: Loculated left pleural effusion TECHNIQUE: Imaging protocol: Computed tomography of the chest with intravenouscontrast. Radiation optimization: All CT scans at this facility use at least one ofthese dose optimization techniques: automated exposure control; mA and/or kV adjustment per patient size (includes targeted exams where dose ismatched to clinical indication); or iterative reconstruction. Contrast material: ISOVUE 370; Contrast volume: 88 ml; Contrast route: INTRAVENOUS (IV); COMPARISON: CR Chest; two view PA/Lat 01/16/2020 10:57 AM FINDINGS: Lungs: See Pleural space finding. Pleural space: Loculated left pleural effusion posterolaterally [id number] by 5.4 cm in greatest transverse dimension. Adjacent atelectasis notedwithin the left lower lobe. Pleural thickening and coarse calcification withinthe right hemithorax. No right pleural effusion. Heart: Unremarkable. No cardiomegaly. No pericardial effusion. Aorta: Unremarkable. No aortic aneurysm. Lymph nodes: Unremarkable. No enlarged lymph nodes. Bones/joints: Unremarkable. No acute fracture. Soft tissues: Unremarkable. IMPRESSION: 1. Loculated left pleural effusion posterolaterally measures 11.7 by 5.4cm in greatest transverse dimension. Adjacent atelectasis noted within the leftlower lobe. 2. Pleural thickening and coarse calcification within the righthemithorax. No right pleural effusion. Report signed by: Brenda Dixon On 01/16/2020 15:28:37 For any questions regarding this report, please contact the [facility] at [phone] Dictated by: Brenda Dixon MDD/ 1319 Transcribed by: ANA/T: E-Signed by: Brenda Dixon MDD/ 1528 Jayesh Olmos MD IMG CT ORDERABL ES * XR CHEST 2 VIEWS (01/16/2020 9:51 EST) Anatomical Region Laterality Modality Computed Radiogr aphy 01/16/2020 9:51 EST Narrative 01/16/2020 9:51 EST [facility] ?[address] ?[place] [address] ?Diagnostic Imaging Report ? Signed ? Patient Name:DAVID FARFAN ? Date of :1950 ?MR Number:[id number] ? Age:69 ?Sex:M ? Category: CR ?Date of Exam:11/15/20 ? Procedure: CR: Chest; Frontal/LAT views ? 923 ? Ordering Physician: Nickolas (MAR[facility]LLA),Jayesh Coburn MD ?Patient ? CC: ?? Emeterio Wynne MD ?? Jayesh Olmos MD ([facility]) ?? Katia Mccallum ? PROCEDURE INFORMATION: ?? Exam: XR Chest, 2 Views ?? Exam date and time: 01/16/2020 9:51 AM ?? Age: 69 years old ?? Clinical indication: Dyspnea; Prior surgery; Additional info: Dyspnea at rest ? TECHNIQUE: ?? Imaging protocol: XR of the chest ?? Views: 2 views. ? COMPARISON: ?? CR Chest; two view PA/Lat 12/12/2018 10:58 PM ? FINDINGS: ?? Tubes, catheters and devices: Pacer stable. ? Lungs: Linear scarring upper right lung. ?? Pleural space: Stable small right pleural effusion. Increased size moderate ?? left pleural effusion, at least partially loculated. Pleural thickening and ?? calcification on the right. ?? Heart/Mediastinum: Unremarkable. No cardiomegaly. ?? Bones/joints: Unremarkable. ? IMPRESSION: ?? 1. Stable small right pleural effusion. ?? 2. Increased size moderate left pleural effusion, at least partially loculated. ?? 3. Pleural thickening and calcification on the right. ? Report signed by: Brenda Dixon On 01/16/2020 ??11:21:16 ?? For any questions regarding this report, please contact the [facility] Operations Center at [phone] ? Dictated by: Brenda Dixon MD ?D/ ?? 0951 ?? Transcribed by: SERGEY ?D/T: ? E-Signed by: Brenda Dixon MD ?D/ ?? 1121 ?? Procedure Note Brenda Dixon MD - 02/01/2020 UVN: [address] [address] Diagnostic Imaging Report Signed Patient Name:DAVID FARFAN FAccount Number:[id number] Date of :1950 MRNumber:[id number] Age:69 Sex:M Category: CR Date ofExam:01/16/20 Procedure: CR: Chest; Frontal/LAT viewsAccession: [id number] Ordering Physician: Nickolas ([facility])Jayesh MD Patient CC: Emeterio Wynne MD, Michael MD ([facility]) Katia Mccallum PROCEDURE INFORMATION: Exam: XR Chest, 2 Views Exam date and time: 01/16/2020 9:51 AM Age: 69 years old Clinical indication: Dyspnea; Prior surgery; Additional info: Dyspnea atrest TECHNIQUE: Imaging protocol: XR of the chest Views: 2 views. COMPARISON: CR Chest; two view PA/Lat 12/12/2018 10:58 PM FINDINGS: Tubes, catheters and devices: Pacer stable. Lungs: Linear scarring upper right lung. Pleural space: Stable small right pleural effusion. Increased sizemoderate left pleural effusion, at least partially loculated. Pleural thickeningand calcification on the right. Heart/Mediastinum: Unremarkable. No cardiomegaly. Bones/joints: Unremarkable. IMPRESSION: 1. Stable small right pleural effusion. 2. Increased size moderate left pleural effusion, at least partiallyloculated. 3. Pleural thickening and calcification on the right. Report signed by: Brenda Dixon On 01/16/2020 11:21:16 For any questions regarding this report, please contact the [facility] at [phone] Dictated by: Brenda Dixon/ 0951 Transcribed by: ANA/T: E-Signed by: Brenda Dixon MDD/ 1121 Jayesh Olmos MD IMG DIAGNOSTIC IMAGING ORDERABLES documented in this encounter Visit Diagnoses Not on filedocumented in this encounter Additional Health Concerns Infection Onset Date Last Indicated Resolved Time RSV 01/31/2022 01/31/2022 02/10/2022 22:1 5 EST documented as of this encounter Care Teams Waiter/Waitress Economy Class Relationship Specialty Start Date End Date Katia Stone, PABijalC [address] [place] [phone] PCP - General 05/02/17 documented as of this encounter
--- OUTSIDE RECORDS SUMMARY | 2023-09-22 18:56 | XMS_ITS | Encounter Summary ---
Author Organization [facility] Address [address] [place] [address] Care Team Providers Care Lab Tech Name Role Phone Katia Stone PA-C Primary Care Provider +1- [phone] Encounter Details Date Type Department Care Team (Latest Contact Info) Description 04/10/2020 Travel Social History Tobacco Use [...] on filedocumented in this encounter Care Teams Lab Tech Relationship Specialty Start Date End Date Katia Stone, MINGO [address] [place] [phone] PCP - General 05/02/17 documented as of this encounter
--- OUTSIDE RECORDS SUMMARY | 2023-09-22 18:56 | XMS_ITS | Encounter Summary ---
Author Organization [facility] Address [address] [place] [address] Care Team Providers Care Metal Miner Blasting Name Role Phone Katia Stone PA-C Primary Care Provider +1- [phone] Encounter Details Date Type Department Care Team (Late st Contact Info) Description 08/13/2020 Lab Requisition [facility] Pathology & Laboratory Medicine - [address] [address] Outr Resulting Lab, Provider Social History Tobacco [...] Procedure Name Priority Date/Time Associated Diagnosis Comments FECAL BACTERIAL PATHOGENS BY PCR Routine 08/11/2020 14:50 EDT documented in this encounter Results * FECAL BACTERIAL PATHOGENS BY PCR (08/11/2020 14:50 EDT) Salmonella PCR Negative Negative 08/13/2020 19:[address] [facility] Shigella/Enteroin vasive E. coli Negative Negative 08/13/2020 19:[address] [facility] HN LAB CAMPYLOBACTER PCR Negative Negative 08/13/2020 19:[address] [facility] Shiga Toxin PCR Negative Negative 19:[address] [facility] Feces SPECIMEN FROM RECTUM / Unknown 08/11/2020 14:50 EDT 08/13/2020 15:22 EDT Provider Outr Resulting Lab MICROBIOLOGY - GENERAL ORDERABLES [facility] [address] [place] [address] documented in this encounter Visit Diagnoses Not on filedocumented in this encounter Additional Health Concerns Infection Onset Date Last Indicated Resolved Time RSV 01/31/2022 01/31/2022 02/10/2022 22:1 5 EST documented as of this encounter Care Teams Metal Miner Blasting Relationship Specialty Start Date End Date Katia Stone, PABijalC [address] [place] [phone] PCP - General 05/02/17 documented as of this encounter
--- OUTSIDE RECORDS SUMMARY | 2023-09-22 18:56 | XMS_ITS | Encounter Summary ---
Author Organization [facility] Address [address] [place] [address] Care Team Providers Care Special Projects Manager Name Role Phone Katia Stone PA-C Primary Care Provider +1- [phone] Reason for Visit * Reason Onset Date Comments Appointment Related 05/04/2020 Encounter Details Date Type Department Care Team (Late st Contact Info) Description 05/04/2020 Telephone [facility] Cardiothoracic Surgery - [facility] [address] [place] [address] Ja Browne MD [address] [place] [phone] Appointment Related Social History Tobacco Use [...] * Telephone Encounter - Melania Dumas - 05/10/2020 0953 EST Medical records from [facility] received, scanned and book marked for patient's appointment with Dr. Browne. * Telephone Encounter - Melania Dumas - 05/04/2020 0857 EST Checking status of referral from Dr. Rosenberg to Dr. Browne. No referral noted in Epic from Dr. Rosenberg to Dr. Browne. Per conversation with Dr. Browne, he was not aware of this referral but is willing to see patient on 05/08/2020, at 10:30 am. Fax out to [facility] and [facility] to request patient's Discharge Summary from recent hospitalization, as well as diagnostic testing, EKG, labs, etc. Await response. documented in this encounter Plan of Treatment Not on file documented as of this encounter Visit Diagnoses Not on filedocumented in this encounter Care Teams Special Projects Manager Relationship Specialty Start Date End Date Katia Stone, MINGO [address] [place] [phone] PCP - General 05/02/17 documented as of this encounter
--- OUTSIDE RECORDS SUMMARY | 2023-09-22 18:56 | XMS_ITS | Encounter Summary ---
Author Organization [facility] Address [address] [place] [address] Care Team Providers Care Policy Advisor Name Role Phone Katia Stone PA-C Primary Care Provider +1- [phone] Reason for Visit * Reason Onset Date Comments Appointment Related 06/16/2020 Encounter Details Date Type Department Care Team (Late st Contact Info) Description 06/16/2020 Telephone [facility] Cardiothoracic Surgery - [address] [address] Ghazala Sutherland RN Appointment Related Social History Tobacco Use Types [...] encounter Miscellaneous Notes * Telephone Encounter - Ghazala Sutherland RN - 06/16/[address] Surgery Update Message left for pt that the Pre-Op Center will call him on Monday 06/19 between 4 - 4:45 PM. I alsoleft him a message to be sure and connect with his Nuclear Cardiology Technologist at PCP office to get his COVID test3-4 days prior to surgery. Surgery is on 06/26. GHAZALA SUTHERLAND RN documented in this encounter Plan of Treatment Not on file documented as of this encounter Visit Diagnoses Not on filedocumented in this encounter Care Teams Policy Advisor Relationship Specialty Start Date End Date Katia Stone, PABijalC [address] [place] [phone] PCP - General 05/02/17 documented as of this encounter
--- OUTSIDE RECORDS SUMMARY | 2023-09-22 18:56 | XMS_ITS | Encounter Summary ---
Author Organization [facility] Address [address] [place] [address] Care Team Providers Care Printer Helper Name Role Phone Katia Stone PA-C Primary Care Provider +1- [phone] Encounter Details Date Type Department Care Team (Late st Contact Info) Description 01/15/2020 Results Only [facility] [phone] Jayesh Olmos MD [address] [place] [phone] Social History Tobacco Use Types Packs/Day [...] Procedure Name Priority Date/Time Associated Diagnosis Comments HEPATIC & CMP COMBO,FASTING - PMC Routine 01/15/2020 6:16 EST COMPLETE BLOOD COUNT Routine 01/15/2020 6:16 EST MAGNESIUM Routine 01/15/2020 6:16 EST documented in this encounter Results * (ABNORMAL) MAGNESIUM (01/15/2020 6:16 EST) Pathologist [facility] Magnesium 1.6(L) 1.8 - 2.4 mg/dl 01/15/2020 7:55 [facility] 01/15/2020 6:16 EST 01/15/2020 7:24 EST Jayesh Olmos MD CHEMISTRY & BLO OD GAS ORDERABLES [facility] [address] [place] [address] * (ABNORMAL) HEPATIC & CMP COMBO,FASTING - PMC (01/15/2020 6:16 EST) Sodium 125(L) 136 - 145 mEq/L 01/15/2020 7:55 [facility] Potassium 3.8 3.5 - 5.1 mEq/L 01/15/2020 7:55 [facility] Chloride 93(L) 96 - 107 mEq/L 01/15/2020 7:55 [facility] CO2 Total 30.1 21 - 32 mEq/L 01/15/2020 7:55 [facility] Anion Gap 3.9 mEq/L 01/15/2020 7:55 [facility] BUN 10 7 - 25 mg/dl 01/15/2020 7:55 [facility] Creatinine 0.67(L) 0.70 - 1.30 mg/dl 01/15/2020 7:55 [facility] Estimated GFR >60 >60 01/15/2020 7:56 [facility] Comment: EGFR UNITS: mL/min/1.73 m 2 CKD-EPI Equation used to calculate. Glucose 92 74 - 106 mg/dl 01/15/2020 7:55 [facility] Calcium 8.2(L) 8.5 - 10.1 mg/dl 01/15/2020 7:55 [facility] CALCIUM,CORRECTE D - PMC 9.2 8.5 - 10.5 mg/dl 01/15/2020 7:55 [facility] BILIRUBIN - PMC 0.60 0.00 - 1.00 mg/dl 01/15/2020 7:55 [facility] AST 46(H) 15 - 37 U/L 01/15/2020 7:55 [facility] ALT 33 16 - 63 U/L 01/15/2020 7:55 [facility] Alkaline Phosphatase 82 46 - 116 U/L 01/15/2020 7:55 [facility] Total Protein 7.0 6.4 - 8.2 g/dl 01/15/2020 7:55 [facility] Albumin 2.8(L) 3.4 - 5.0 g/dl 01/15/2020 7:55 [facility] GLOBULIN - PMC 4.2 g/dl 01/15/2020 7:55 [facility] ALBUMIN/GLOBULIN RATIO - PMC 0.6 01/15/2020 7:55 [facility] 01/15/2020 6:16 EST 01/15/2020 7:24 EST Jayesh Olmos MD CHEMISTRY & BLO OD GAS ORDERABLES [facility] [address] [place] [address] * (ABNORMAL) COMPLETE BLOOD COUNT (01/15/2020 6:16 EST) WBC 4.4 4.0 - 10.5 10 3/uL 01/15/2020 7:45 [facility] RBC 3.26(L) 4.70 - 6.00 10 6/uL 01/15/2020 7:45 [facility] Hemoglobin 11.3(L) 13.5 - 18.0 g/dL 01/15/2020 7:45 [facility] HCT 31.2(L) 42.0 - 52.0 % 01/15/2020 7:45 [facility] MCV 95.7 78 - 100 fL 01/15/2020 7:45 [facility] MCH 34.7(H) 27 - 31 pg 01/15/2020 7:45 [facility] MCHC 36.2(H) 32 - 36 g/dL 01/15/2020 7:45 [facility] RDW-CV - PMC 12.8 11.0 - 14.8 % 01/15/2020 7:45 [facility] PLATELET COUNT - PMC 163 150 - 450 10 3/uL 01/15/2020 7:45 [facility] 01/15/2020 6:16 EST 01/15/2020 7:24 EST Jayesh Olmos MD HEMATOLOGY & PF 4 ORDERABLES Performing Organization Address City/State/[facility] Co de Phone Number [facility] [address] [place] [address] documented in this encounter Visit Diagnoses Not on filedocumented in this encounter Care Teams Printer Helper Relationship Specialty Start Date End Date Katia Stone, PABijalC [address] [place] [phone] PCP - General 05/02/17 documented as of this encounter
--- OUTSIDE RECORDS SUMMARY | 2023-09-22 18:56 | XMS_ITS | Encounter Summary ---
Author Organization [facility] Address [address] [place] [address] Care Team Providers Care Alcoholism Worker Name Role Phone Katia Stone PA-C Primary Care Provider +1- [phone] Encounter Details Date Type Department Care Team (Late st Contact Info) Description 05/16/2020 Documentation Visit [facility] Infectious Disease - [address] [address] [facility] [address] [phone] Social History Tobacco Use Types Packs/Day Years [...] as of this encounter Progress Notes * Missy Thomson RN - 05/16/2020 0947 EDT [...] screening notification sheet recommending addition of eye protection(unable to wear mask over his nose) while in the Cardiothoracic (CT) Surgery Clinic. At conclusion of Outpatient Assessment Center visit, patient sent to appointment. Kem Thomson RN, [id number] documented in this encounter Plan of Treatment Not on file documented as of this encounter Visit Diagnoses Not on filedocumented in this encounter Care Teams Alcoholism Worker Relationship Specialty Start Date End Date Katia Stone, MINGO [address] [place] [phone] PCP - General 05/02/17 documented as of this encounter
--- OUTSIDE RECORDS SUMMARY | 2023-09-22 18:56 | XMS_ITS | Encounter Summary ---
Author Organization [facility] Address [address] [place] [address] Care Team Providers Care Co Supervisor Grounds And Landscape Name Role Phone Katia Stone PA-C Primary Care Provider +1- [phone] Reason for Visit * Reason Onset Date Comments Other 05/19/2020 Encounter Details Date Type Department Care Team (Late st Contact Info) Description 05/19/2020 Telephone [facility] Cardiothoracic Surgery - [facility] [address] [place] [address] Ja Browne MD [address] [place] [phone] Other Social History Tobacco Use Types Packs/Day Years [...] CT Surgery Update Patient showed up at [facility] for his CBC and the lab manager turned him away as the patient said I'll wait and have it done in [place] when I have the other blood test done. The otherblood test needed is on the day of surgery for a Pre-Op Blood Draw (type and screen). I called the lab and spoke with a Desi and she will place a note in the system so that they don't turn him away again. I asked them to call our office at [phone] if there are any questions when the patient arrives. He must have the CBC prior to surgery. I called Nila the CM at his Proivder's office and reviewed above with her. She will call the patientas she works closely with him. P) CBC at [facility]. Call CT Surgery WHILE PATIENT IS THERE IF ANY QUESTIONS. * Telephone Encounter - Alma Dhillon - 05/19/2020 1244 EDT Please call mattress spring encaser at PCP Office, [place]. Patient went to [facility] to have pre-op blood draw, as he was directed. [facility] saw the order for blood bank draw, and would not draw any bloodwork for the patient. documented in this encounter Plan of Treatment Not on file documented as of this encounter Visit Diagnoses Not on filedocumented in this encounter Care Teams Co Supervisor Grounds And Landscape Relationship Specialty Start Date End Date Katia Stone, MINGO [address] [place] [phone] PCP - General 05/02/17 documented as of this encounter
--- OUTSIDE RECORDS SUMMARY | 2023-09-22 18:56 | XMS_ITS | Encounter Summary ---
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, initial encounter Procedures XR CHEST 2 VIEWS José Miguel Roca PA-C [address] [place] [phone] Referral ID Status Reason Start Date Expiration Date Visits Re quested Visits Authorized [id number] Closed 05/16/2020 1 1 Reason for Visit * Radiology Services (Routine) - Closed Specialty Diagnoses / Procedures Referred By Jael ho Referred To Contact Diagnoses 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, initial encounter Procedures XR CHEST 2 VIEWS José Miguel Roca PA-C [address] [phone] Referral ID Status Reason Start Date Expiration Date Visits Re quested Visits Authorized [id number] Closed 05/16/2020 1 1 Encounter Details Date Type Department Care Team (Latest Contact Info) Description 05/16/2020 10:57 EDT - 05/16/2020 23:59 EDT [facility] Radiology Xray Outpatient - [address] [address] 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 ??No significant change from prior. I have personally reviewed the images and the above interpretation and agree with the findings. Narrative 05/16/2020 11:56 EDT XR CHEST 2 VIEWS ??05/16/2020 11:00 AM CLINICAL HISTORY/COMMENTS: sob COMPARISON: Multiple prior chest radiographs most recently June 12, 2017, CT PE June 13, 2017. TECHNIQUE: Frontal and lateral views of the chest were performed. FINDINGS: Soft tissues and extrathoracic findings: ??No abnormalities. Bones: Normal for age. Cardiac and mediastinal contours: Stable position of right atrial and right ventricular pacemaker leads. The cardiac silhouette is at the upper limit of normal. Lungs: Bibasilar opacities are redemonstrated. ?? Pleura/diaphragms: Bilateral pleural effusions and right pleural calcifications are redemonstrated. Procedure Note Zia Alberto MD - 05/16/2020 XR CHEST 2 VIEWS 05/16/2020 11:00 AM CLINICAL HISTORY/COMMENTS: sob COMPARISON: Multiple prior chest radiographs most recently June 12, 2017, CT PE 2017. TECHNIQUE: Frontal and lateral views of the chest were performed. FINDINGS: Soft tissues and extrathoracic findings: No abnormalities. Bones: Normal for age. Cardiac and mediastinal contours: Stable position of right atrial andright ventricular pacemaker leads. The cardiac silhouette is at the upperlimit of normal. Lungs: Bibasilar opacities are redemonstrated. Pleura/diaphragms: Bilateral pleural effusions and right pleuralcalcifications are redemonstrated. IMPRESSION 1. No significant change from prior. I have personally reviewed the images and the above interpretation andagree with the findings. 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
--- OUTSIDE RECORDS SUMMARY | 2023-09-22 18:56 | XMS_ITS | Encounter Summary ---
Author Organization [facility] Address [address] [place] [address] Care Team Providers Care Agile Developer Name Role Phone Katia Stone PA-C Primary Care Provider +1- [phone] Reason for Visit * Reason Onset Date Comments Appointment Related 06/06/2020 Encounter Details Date Type Department Care Team (Late st Contact Info) Description 06/06/2020 Telephone [facility] Cardiothoracic Surgery - [facility] [address] [place] [address] Ja Browne MD [address] [place] [phone] Appointment Related Social History Tobacco Use [...] * Telephone Encounter - Alma Dhillon - 06/06/2020 3642 EDT At her request, I have telephoned Nurse Refrigeration Tech[facility] Nila[facility] to advise of this patient's surgery date. It is Monday 06/26 beginning @ 1:00 pm. This will involve Lorraine Browne and Shakira. I was unable to reach Nila, but left a message requesting her to phone our office, if she had any questions. documented in this encounter Plan of Treatment Not on file documented as of this encounter Visit Diagnoses Not on filedocumented in this encounter Care Teams Agile Developer Relationship Specialty Start Date End Date Katia Stone, BELLAC [address] [place] [phone] PCP - General 05/02/17 documented as of this encounter
--- OUTSIDE RECORDS SUMMARY | 2023-09-22 18:56 | XMS_ITS | Encounter Summary ---
Author Organization [facility] Address [address] [place] [address] Care Team Providers Care Churn Drill Operator Name Role Phone Katia Stone PA-C Primary Care Provider +1- [phone] Encounter Details Date Type Department Care Team (Late st Contact Info) Description 08/10/2020 Results Only [facility] - [facility] Rheumatology [address] [place] [address] Ester Valerio MD [address] [facility] [address] [place] [phone] Social History Tobacco Use Types Packs/Day Years [...] Comments COMPLETE BLOOD COUNT AND DIFFERENTIAL Routine 08/10/2020 5:35 EDT MAGNESIUM Routine 08/10/2020 5:35 EDT HEPATIC FUNCTION PANEL (ALB,ALK PHOS,ALT,AST,DBIL,TOT BOSSMAN,TOT PROT) Routine 08/10/2020 5:35 EDT BASIC METABOLIC PANEL (BMP) Routine 08/10/2020 5:35 EDT documented in this encounter Results * (ABNORMAL) MAGNESIUM (08/10/2020 5:35 EDT) Magnesium 1.5(L) 1.8 - 2.4 mg/dl 08/10/2020 6:13 EDT LAB 08/10/2020 5:35 EDT 08/10/2020 5:42 EDT Ester Valerio MD CHEMISTRY & BLOO D GAS ORDERABLES LAB [address] [place] [address] * (ABNORMAL) BASIC METABOLIC PANEL (BMP) (08/10/2020 5:35 EDT) Sodium 133(L) 136 - 145 mEq/L 08/10/2020 6:13 EDT LAB Potassium 3.4(L) 3.5 - 5.1 mEq/L 08/10/2020 6:13 EDT LAB Chloride 98 96 - 107 mEq/L 08/10/2020 6:13 [facility] CO2 Total 27.2 21 - 32 mEq/L 08/10/2020 6:13 [facility] Anion Gap 7.8 mEq/L 08/10/2020 6:13 [facility] BUN 6(L) 7 - 25 mg/dl 08/10/2020 6:13 [facility] Creatinine 0.54(L) 0.70 - 1.30 mg/dl 08/10/2020 6:13 [facility] Estimated GFR >60 >60 08/10/2020 6:13 [facility] Comment: EGFR UNITS: mL/min/1.73 m 2 CKD-EPI Equation used to calculate. Glucose 86 74 - 106 mg/dl 08/10/2020 6:13 [facility] Calcium 7.7(L) 8.5 - 10.1 mg/dl 08/10/2020 6:13 [facility] 08/10/2020 5:35 EDT 08/10/2020 5:42 EDT Ester Valerio MD CHEMISTRY & BLOO D GAS ORDERABLES LAB [address] [place] [address] * (ABNORMAL) HEPATIC FUNCTION PANEL (ALB,ALK PHOS,ALT,AST,DBIL,TOT BOSSMAN,TOT PROT) (08/10/2020 5:35 EDT) BILIRUBIN - PMC 0.90 0.00 - 1.00 mg/dl 08/10/2020 6:13 [facility] DIRECT BILIRUBIN - PMC 0.50(H) 0.00 - 0.30 mg/dl 08/10/2020 6:13 [facility] INDIRECT BILIRUBIN - PMC 0.40 0.00 - 0.80 mg/dl 08/10/2020 6:13 [facility] AST 50(H) 15 - 37 U/L 08/10/2020 6:13 [facility] ALT 37 16 - 63 U/L 08/10/2020 6:13 [facility] Alkaline Phosphatase 97 46 - 116 U/L 08/10/2020 6:13 [facility] Total Protein 6.1(L) 6.4 - 8.2 g/dl 08/10/2020 6:13 [facility] Albumin 2.3(L) 3.4 - 5.0 g/dl 08/10/2020 6:13 [facility] GLOBULIN - PMC 3.8 g/dl 08/10/2020 6:13 [facility] ALBUMIN/GLOBULIN RATIO - PMC 0.6 08/10/2020 6:13 [facility] 08/10/2020 5:35 EDT 08/10/2020 5:42 EDT Ester Valerio MD CHEMISTRY & BLOO D GAS ORDERABLES Performing Organization Address City/State/[facility] Co de Phone Number LAB [address] [place] [address] * (ABNORMAL) COMPLETE BLOOD COUNT AND DIFFERENTIAL (08/10/2020 5:35 EDT) WBC 7.0 4.0 - 10.5 10 3/uL 08/10/2020 5:58 [facility] RBC 2.72(L) 4.70 - 6.00 10 6/uL 08/10/2020 5:58 [facility] Hemoglobin 9.7(L) 13.5 - 18.0 g/dL 08/10/2020 5:58 [facility] HCT 27.9(L) 42.0 - 52.0 % 08/10/2020 5:58 [facility] MCV 102.6(H) 78 - 100 fL 08/10/2020 5:58 [facility] MCH 35.7(H) 27 - 31 pg 08/10/2020 5:58 [facility] MCHC 34.8 32 - 37 g/dL 08/10/2020 5:58 [facility] RDW-CV - PMC 14.7 <14.7 % 08/10/2020 5:58 [facility] PLATELET COUNT - PMC 180 150 - 450 10 3/uL 08/10/2020 5:58 [facility] MPV 11.0 9.2 - 12.0 fL 08/10/2020 5:58 [facility] NEUTROPHILS % (AUTO) - PMC 65.5 % 08/10/2020 5:58 [facility] LYMPHOCYTES % (AUTO) - PMC 17.5 % 08/10/2020 5:58 [facility] MONOCYTES % (AUTO) - PMC 13.9 % 08/10/2020 5:58 [facility] EOSINOPHILS % (AUTO) - PMC 2.1 % 08/10/2020 5:58 [facility] BASOPHILS % (AUTO) - PMC 0.4 % 08/10/2020 5:58 [facility] Immature Granulocyte % (Auto) 0.6 % 08/10/2020 5:58 [facility] NUCLEATED RBC % (AUTO) - PMC 0.0 % 08/10/2020 5:58 [facility] NEUTROPHILS # (AUTO) - PMC 4.6 1.5 - 6.6 10 3/uL 08/10/2020 5:58 [facility] LYMPHOCYTES # (AUTO) - PMC 1.2 1.0 - 3.5 10 3/uL 08/10/2020 5:58 [facility] MONOCYTES # (AUTO) - PMC 1.0 <1.0 10 3/uL 08/10/2020 5:58 [facility] EOSINOPHILS # (AUTO) - PMC 0.2 <0.7 10 3/uL 08/10/2020 5:58 [facility] Absolute Immature Granulocyte 0.04 <0.06 10 3/uL 08/10/2020 5:58 [facility] DIFFERENTIAL METHOD Auto Differential 08/10/2020 5:44 [facility] 08/10/2020 5:35 EDT 08/10/2020 5:43 EDT Ester Valerio MD PACKAGES & DNA P ANETA ORDERABLES LAB [address] [place] [address] documented in this encounter Visit Diagnoses Not on filedocumented in this encounter Care Teams Churn Drill Operator Relationship Specialty Start Date End Date Katia Stone, PABijalC [address] [place] [address] PCP - General 05/02/17 documented as of this encounter
--- OUTSIDE RECORDS SUMMARY | 2023-09-22 18:56 | XMS_ITS | Encounter Summary ---
Author Organization [facility] Address [address] [place] [address] Care Team Providers Care Marketing Programs Specialist Name Role Phone Katia Stone PA-C Primary Care Provider +1- [phone] Reason for Visit * Reason Onset Date Comments Labs Only 05/17/2020 Lab orders for p re-op blood work Encounter Details Date Type Department Care Team (Late st Contact Info) Description 05/17/2020 Telephone [facility] Cardiothoracic Surgery - [facility] [address] [place] [address] Ja Browne MD [address] [place] [phone] Labs Only (Lab orders for pre-op blood work) Social History Tobacco Use Types Packs/Day Years [...] Miscellaneous Notes * Telephone Encounter - Cat Sutherland, RN - 05/17/2020 1115 EDT Cardiothoracic Surgery Update Note in Epic regarding blood draw arrangement and process in my note of 05/16. Explained again to Nila Land Surveying Survey Worker. * Telephone Encounter - Melania Dumas - 05/17/2020 1044 EDT Nila (pressure dispatcher from [place]) calling to find out if patient's lab orders were faxed to [place]. Per Nila, patient did not have his blood drawn while here at [facility] on 05/16/2020. Land Leveler explained to caller that patients are usually unable to have pre-op blood bank done at any other facility but mortgage underwriter will defer to CT Surgery RN. Nila requesting return call to [phone], extension: 7. documented in this encounter Plan of Treatment Not on file documented as of this encounter Visit Diagnoses Not on filedocumented in this encounter Care Teams Marketing Programs Specialist Relationship Specialty Start Date End Date Katia Stone, BELLAC [address] [place] [phone] PCP - General 05/02/17 documented as of this encounter
--- OUTSIDE RECORDS SUMMARY | 2023-09-22 18:56 | XMS_ITS | Encounter Summary ---
Author Organization [facility] Address [address] [place] [address] Care Team Providers Care Mandrel Maker Name Role Phone Katia Stone PA-C Primary Care Provider +1- [phone] Reason for Referral * Radiology Services (Routine) - Closed Specialty Diagnoses / Procedures Referred By Contac t Referred To Contact Diagnoses 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, initial encounter Procedures XR CHEST 2 VIEWS José Miguel Roca PA-C [address] [facility] [address] [place] [address] Referral ID Status Reason Start Date Expiration Date Visits Re quested Visits Authorized [id number] Closed 05/16/2020 1 1 Reason for Visit * Reason Comments New Patient Visit consult Advice Only PLEASE WEAR ADITTION AL EYE Adam WHEN IN ROOM,, PT UNABLE TO WEAR A MASK * Consult, Test and Treat (Routine) - Closed Specialty Diagnoses / Procedures Referred By Contac t Referred To Contact Cardiothoracic Surgery Diagnoses Pacemaker lead malfunction Tony Rosenberg MD [address] [place] [address] Ja Browne MD [address] [place], [place] [address] [address] [address] Referral ID Status Reason Start Date Expiration Date Visits Re quested Visits Authorized [id number] Closed 1 1 Encounter Details Date Type Department Care Team (Latest Contact Info) Description 05/16/2020 9:30 EDT Office Visit [facility] Cardiothoracic Surgery - [address] [place] [address] Ja Browne MD [address] [place] [address] 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, initial encounter (Primary Dx) Social History Tobacco Use Types [...] No 06/12/2017 documented as of this encounter Patient Instructions * Patient Instructions* Cat Sutherland RN - 05/16/2020 9:30 EDT Images from the original note were not included. Preoperative Instructions - Thoracic Surgery Patients Welcome to the Division of Cardiothoracic Surgery at the [facility]. We look forward to making your stay a safe, comfortable and pleasant experience. ??? Your surgery is scheduled on: To Be Announced ??? Please plan to arrive at: To Be Announced ??? When you arrive you should report to Registration on Level 3 (street level), located near the Main Entrance of the [facility] at the [facility]. Due to COVID, there is no visitation allowed during your hospital stay. You may bring one non-sick person only with you on the day of the surgery. That person can go with you to the Pre-Op Hold Waiting Room and then they can either wait in the waiting room and talk with the Surgeon following your surgery OR leave and the Surgeon will contact that [...] pre-screen call within two days of this appointment please contact our office at [phone]. We have included a local lodging list should you or your family require accommodations around the time of your surgery. Discounts may apply for family members of patients being hospitalized, please ask the hotel when booking. If you have cancer, you and your family member are eligible to stay at the [facility] [place]. The Oncology Patient Navigator can be reached at [phone] for assistance with this. You should receive a call from our office 1-3 days prior to your scheduled surgery to review instructions and answer any questions. During this time please verify with our office your contact information for the day and night before surgery. In the event of a scheduling change, we will then be ableto contact you. Please stop or hold the [...] days prior to your surgery. Stop [place] 14 days prior to surgery. ??? Acetaminophen [...] IF THIS CHANGES, CALL OUR OFFICE AT [phone]. Continue to take all of your other [...] helpful. ??? Do not wear any nail ivorian, makeup, powder, lotion, deodorant or jewelry of [...] to 7 days before the surgery date to ensure timely results. The Patient Access Center will contact you with an appointment at a location closest to your home for the test. Once the test is completed, you will need to quarantine at homeuntil the surgery. If you don't hear from them with an appointment contact them at [phone] as the test MUST BE DONE 72 - 96 HOURS PRIOR TO YOUR SURGERY. NO LATER AND NO SOONER. Post-Operative Information: ??? If you have an Advance Directive, please bring a copy with you on the day of surgery so that itmay be added to your medical record. ??? [...] to the Surgeon's office on Level 5 [facility] Outpatient office. Note: If for some reason [...] listed below. The Division of Cardiothoracic Surgery [address] [place] [phone] (Toll Free) MD Geovanni Toure MD Marek Polomsky, MD Chris Rokkas, MD josh 10/2019 documented in this encounter Progress Notes * Ja Browne MD - 05/16/2020 0930 EDT Cardiothoracic Surgery Consult Chief Complaint: Malfunctioning right atrial pacing lead Referring Physician: Dr. Tony Rosenberg History of Present Illness: I had the pleasure of seeing Tim Mera in evaluation for removal ofthe right atrial lead, possible laser lead extraction. As you know he is a pleasant 69-year-old male with past medical history significant for complete heart block status post permanent pacemaker placement in 2018, hyponatremia, alcohol abuse, hypertension, pulmonary disease but now presents with right atrial malfunctioning lead. The patient underwent placement of dual-chamber pacemaker in 2018, which was complicated by pericardial effusion and need to reposition the right atrial lead. The patient has been recently experiencing as what he described electric shocks and discomfort from his per manent pacemaker. He otherwise denies having any problems with his incision. He was recently evaluated by Dr. Rosenberg who interrogated the device, and there was noted significant artifact on the atrial intracardiac electrogram. Given these findings, it was felt that explantation of right atrial leadwill be recommended, and given the chronicity of the lead, laser lead extraction would be performed. Mr. Mera now comes into our cardiac surgical clinic to undergo evaluation for candidacy of rightatrial lead removal, possible laser extraction. Past Medical History: Obesity, [...] file Gets together: Not on file Attends voodoo service: Not on file Active member of [...] complicated by perforation and repositioning of right atrial lead, pericarditis, hyponatremia, alcohol abuse, hypertension, pulmonary disease who now presentswith right atrial malfunctioning lead and pain. After evaluation by Dr. Rosenberg right atrial lead explantation has been recommended, with possible use of laser, with reimplantation of new right atriallead. Given his clinical presentation, the patient would [...] Thank you. Ja Browne MD Cardiothoracic Surgery [phone] (office) 05/16/2020 10:36 * Cat Sutherland RN - 05/16/2020 0942 EDT Cardiac Surgery Nursing Pre-Operative Teaching ELECTIVES [...] to review information given today. Pt to callwith questions as reviewed prn. P) As above documented in this encounter Miscellaneous Notes * Addendum Note - Ja Browne MD - 05/16/2020 0930 EDTAddended by: JA BROWNE on: 06/06/2020 11:27 Modules accepted: Orders documented in this encounter Plan of Treatment Not on file documented as of this encounter Results * XR CHEST 2 [...] of electrode lead of cardiac pacemaker, initial encounter- Primary 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, initial encounter documented in this encounter Historical Medications * This list may reflect changes made after this encounter. Medication Sig Dispensed Refills Start Date End Date omeprazole (PRILOSEC) 20 mg capsule Take 20 mg by mouth daily. ibuprofen (MOTRIN) 200 mg tablet Take 180 mg by mouth 2 times daily. added in this encounter Care Teams Mandrel Maker Relationship Specialty Start Date End Date Katia Stone PA-C [address] [place] [phone] PCP - General 05/02/17 documented as of this encounter
--- OUTSIDE RECORDS SUMMARY | 2023-09-22 18:56 | XMS_ITS | Encounter Summary ---
Author Organization [facility] Address [address] [place] [address] Care Team Providers Care Slot Floor Person Name Role Phone Katia Stone PA-C Primary Care Provider +1- [phone] Encounter Details Date Type Department Care Team (Late st Contact Info) Description 08/08/2020 Results Only [facility] Dermatology - [facility] [place] [address] [place] [address] Virginia Quintana MD [address] [place] [address] Social History Tobacco Use Types Packs/Day Years [...] ADD ON TEST REQUEST - PMC Routine 08/08/2020 21:17 EDT MAGNESIUM Routine 08/08/2020 16:47 EDT documented in this encounter Results * ADD ON TEST REQUEST - PMC (08/08/2020 21:17 EDT) Special Requests ADD ON DONE 08/08/2020 21:57 EDT [facility] Comment: All tests (see tests in sample comments) have been added as requested. 08/08/2020 21:1 7 EDT 08/08/2020 21:57 EDT Narrative [facility] - 08/08/2020 21:57 EDT ED this evening Mg Virginia Quintana MD CHEMISTRY & BLOOD GA S ORDERABLES Performing Organization Address [facility] Co de Phone Number [facility] [address] [place] [phone] * (ABNORMAL) MAGNESIUM (08/08/2020 16:47 EDT) Magnesium 1.7(L) 1.8 - 2.4 mg/dl 08/08/2020 22:02 EDT [facility] 08/08/2020 16:4 7 EDT 08/08/2020 16:52 EDT Virginia Quintana MD CHEMISTRY & BLOOD GA S ORDERABLES Performing Organization Address [facility] Co de Phone Number [facility] [address] [place] [phone] documented in this encounter Visit Diagnoses Not on filedocumented in this encounter Care Teams Slot Floor Person Relationship Specialty Start Date End Date Katia Stone, PABijalC [address] [place] [phone] PCP - General 05/02/17 documented as of this encounter
--- OUTSIDE RECORDS SUMMARY | 2023-09-22 18:56 | XMS_ITS | Encounter Summary ---
Author Organization [facility] Address [address] [place] [address] Care Team Providers Care Receiving Worker Name Role Phone Katia Stone PA-C Primary Care Provider +1- [phone] Reason for Visit * Reason Onset Date Comments Appointment Related 06/22/2020 Encounter Details Date Type Department Care Team (Late st Contact Info) Description 06/22/2020 Telephone [facility] Cardiothoracic Surgery - [facility] [address] [place] [address] Ja Browne MD [address] [place] [phone] Appointment Related Social History Tobacco Use [...] * Telephone Encounter - Alma Dhillon - 06/22/[address] Browne, I have cancelled this patient's surgery case for 06/26. The patient refuses the procedure at this time. documented in this encounter Plan of Treatment Not on file documented as of this encounter Visit Diagnoses Not on filedocumented in this encounter Care Teams Receiving Worker Relationship Specialty Start Date End Date Katia Stone, BELLAC [address] [place] [phone] PCP - General 05/02/17 documented as of this encounter
--- OUTSIDE RECORDS SUMMARY | 2023-09-22 18:56 | XMS_ITS | Encounter Summary ---
Author Organization [facility] Address [address] [place] [address] Care Team Providers Care Pickers Material Handlers Name Role Phone Katia Stone PA-C Primary Care Provider +1- [phone] Encounter Details Date Type Department Care Team (Late st Contact Info) Description 08/11/2020 Results Only [facility] [address] [place] [address] Jayesh Olmos MD [address] [place] [address] Social History Tobacco Use Types [...] PATHOGENS BY PCR Routine 08/11/2020 14:50 EDT OVA/PARASITE EXAM Routine 08/11/2020 14: 50 EDT documented in this encounter Results * OVA/PARASITE EXAM (08/11/2020 14:50 EDT) PARASITE ID - PMC SEE NOTES 021 15:34 EDT [facility] Comment: RESULT: No ova and parasites seen. Source:stool (If Cryptosporidium, Cyclospora, or Microsporidium are suspected, specific tests must be requested.) Single negative specimen does not rule out the possibility of a parasitic infection. Test performed [place] [id number] 08/11/2020 14:5 0 EDT 08/12/2020 14:54 EDT Narrative [facility] - 08/14/2020 15:34 EDT stool Jayehs Olmos MD MICROBIOLOGY - GENERAL ORDERABLES [facility] [address] [place] [address] * FECAL BACTERIAL PATHOGENS BY PCR (08/11/2020 14:50 EDT) Salmonella PCR Negative Negative 08/13/2020 19:57 EDT [facility] Shigella/Enteroin vasive E. coli Negative Negative 08/13/2020 19:57 EDT [facility] HN LAB CAMPYLOBACTER PCR Negative Negative 08/13/2020 19:57 EDT [facility] Shiga Toxin PCR Negative Negative 1 7:29 EDT [facility] Comment: Test performed or referred by The [address] [address] 08/11/2020 14:5 0 EDT 08/12/2020 14:53 EDT Jayesh Olmos MD MICROBIOLOGY - GENERAL ORDERABLES Performing Organization Address City/State/[facility] Co de Phone Number [facility] [address] [place] [address] documented in this encounter Visit Diagnoses Not on filedocumented in this encounter Care Teams Pickers Material Handlers Relationship Specialty Start Date End Date Katia Stone, BELLAC [address] [place] [address] PCP - General 05/02/17 documented as of this encounter
--- OUTSIDE RECORDS SUMMARY | 2023-09-22 18:56 | XMS_ITS | Encounter Summary ---
Author Organization [facility] Address [address] [place] [address] Care Team Providers Care Answerer Name Role Phone Katia Stone PA-C Primary Care Provider +1- [phone] Reason for Visit * Reason Onset Date Comments Other 06/13/2020 Encounter Details Date Type Department Care Team (Late st Contact Info) Description 06/13/2020 Telephone [facility] Cardiothoracic Surgery - [address] [address] Cat Sutherland RN Other Social History Tobacco Use Types Packs/Day [...] Telephone Encounter - Cat Sutherland, RN - 06/13/[address] Surgery Update Patient aware that instructions mailed to him by our JORGE Velázquez. I informed him his check in time is 10 am for surgery at 1210 on 06/26. His Rotary Engraver with PCP is setting up his ride for [place] on 06/26 and for his COVID test that will need to be done 3-4 days prior to surgery. Patient verbalized understanding. I called the patient's Rotary Engraver at [facility] at [phone] and left her a message (Maru Villalobos, TISH). She will be arranging his ride to [place] on DOSA and for his COVID test. I have updated our TRAILER STEERER and Beulah FAIR CM at [facility] as well. documented in this encounter Plan of Treatment Not on file documented as of this encounter Visit Diagnoses Not on filedocumented in this encounter Care Teams Answerer Relationship Specialty Start Date End Date Katia Stone, BELLAC [address] [place] [phone] PCP - General 05/02/17 documented as of this encounter
--- OUTSIDE RECORDS SUMMARY | 2023-09-22 18:56 | XMS_ITS | Encounter Summary ---
Author Organization [facility] Address [address] [place] [address] Care Team Providers Care Roving Carrier Name Role Phone Katia Stone PA-C Primary Care Provider +1- [phone] Reason for Visit * Reason Onset Date Comments Labs Only 05/11/2020 Encounter Details Date Type Department Care Team (Late st Contact Info) Description 05/11/2020 Telephone [facility] Acute Care Surgery - [facility] [address] [place] [address] Ja Browne MD [address] [place] [id number] Labs Only Social History Tobacco Use Types Packs/Day Years [...] though I reviewed with him, gave him written instructions and also reviewed this with the Radiology front end engineer on [facility] 3 that he would need to be taken to the lab on Level 2 following his chest x-ray. They did not take him. I will re-enter the orders for the CBC to have drawn at [place] which is closest to the patient's home he states. I have routed our CT PACHECO Salvador STOUT to re-enter the Type and Screen/ x match order to be drawn inpre-op hold on the dosa. Pt made aware to go to [facility] to have the CBC drawn on 05/17 or05/18. I confirmed with the Lab there that it's the CBC that needs to be drawn. Soybean Specialties Cook verbalized understanding and no appt needed. Pt also verbalized understanding. * Telephone Encounter - Doris Mera MA - 05/11/2020 0851 EST Spoke to Tim to confirm appt on 05/16/20 at 9;30 am , He is aware of visitor policy as well, will be in wheelchair . documented in this encounter Plan of Treatment Not on file documented as of this encounter Visit Diagnoses Not on filedocumented in this encounter Care Teams Roving Carrier Relationship Specialty Start Date End Date Katia Stone, MINGO [address] [place] [phone] PCP - General 05/02/17 documented as of this encounter
--- OUTSIDE RECORDS SUMMARY | 2023-09-22 18:56 | XMS_ITS | Encounter Summary ---
Author Organization [facility] Address [address] [place] [address] Care Team Providers Care Etl Database Developer Name Role Phone Katia Stone PA-C Primary Care Provider +1- [phone] Reason for Visit * Reason Onset Date Comments Coordination Of Care 04/19/2020 Returning Call 04/20/2020 Encounter Details Date Type Department Care Team (Late st Contact Info) Description 04/19/2020 Telephone [facility] Cardiology - [address] [id number] Tony Rosenberg MD [address] [place] [address] [address] [place] [address] Coordination Of Care; Returning Call Social History Tobacco Use Types Packs/Day Years [...] encounter Miscellaneous Notes * Telephone Encounter - Adam Ordoñez - 04/20/2020 1508 EST Patient's case packer and sealer returning call to Belinda. Please call. * Telephone Encounter - Belinda Falk RN - 04/20/2020 1457 EST Call placed to case packer and sealer regarding patient unable to reach by phone. Message left on voice mail to call office back with call back number [phone]. * Telephone Encounter - Conner Mccall - 04/19/2020 1118 EST Reason for Call: Coordination Of Care Summary/Symptoms: Maru patients Hvac Sheet Metal Installer reaching out to get more information on the appt Dr Rosenberg talked about for patient's pacemaker. Dr Rosenberg was going to have an appt for the patient with another cardio surgeon Maru states. Maru was going to call [facility] Card[facility] but stated they always ask Chaitanya. Please call back to discuss Conner Mccall 04/19/2020 11:19 documented in this encounter Plan of Treatment Not on file documented as of this encounter Visit Diagnoses Not on filedocumented in this encounter Care Teams Etl Database Developer Relationship Specialty Start Date End Date Katia Stone PA-C [address] [place] [phone] PCP - General 05/02/17 documented as of this encounter
--- OUTSIDE RECORDS SUMMARY | 2023-09-22 18:56 | XMS_ITS | Encounter Summary ---
Author Organization [facility] Address [address] [place] [address] Care Team Providers Care Business Strategist Name Role Phone Katia Stone PA-C Primary Care Provider +1- [phone] Encounter Details Date Type Department Care Team (Latest Contact Info) Description 06/19/2020 16:00 EDT - 06/19/2020 23:59 EDT Hospital Encounter [facility] Pre-Surgical Testing [address] [place] [address] Discharge Disposition: Home or Self Care Social [...] Care documented in this encounter Progress Notes * Zeina Lew RN - 06/19/2020 1600 EDT This RN called pt to go over his health information for anesthsia purposes. Pt very vague with his answers and declined to be specific when asked further details. Pt states he does not know his medications and there is no one there to help. This RN was unable to verify the medications. Pt unsure about ride to hospital - to be organized by his case preparer and liner Nila Villalobos. Pt refused to listen to instructions for surgery states I am waiting for the paper work that tells me what meds to take. This RN spoke with Cat Sutherland grinding and polishing laborer to discuss above. Cat to call pt tomorrow to confirm informations on medications as well as instructions otherwise. She will also contact manager of case to confirm ride. documented in this encounter Plan of Treatment Not on file documented as of this encounter Visit Diagnoses Not on filedocumented in this encounter Care Teams Business Strategist Relationship Specialty Start Date End Date Katia Stone, PABijalC [address] [place] [phone] PCP - General 05/02/17 documented as of this encounter
--- OUTSIDE RECORDS SUMMARY | 2023-09-22 18:56 | XMS_ITS | Encounter Summary ---
Author Organization [facility] Address [address] [place] [address] Care Team Providers Care Cloud Consultant Name Role Phone Katia Stone PA-C Primary Care Provider +1- [phone] Encounter Details Date Type Department Care Team (Late st Contact Info) Description 08/13/2020 Lab Requisition [facility] Pathology & Laboratory Medicine - [address] [address] Outr Resulting Lab, Provider Social History Tobacco [...] Procedure Name Priority Date/Time Associated Diagnosis Comments OVA/PARASITE EXAM Routine 08/11/2020 14: 50 EDT documented in this encounter Results * OVA/PARASITE EXAM (08/11/2020 14:50 EDT) Parasite No ova and parasites seen. 08/14/2020 11:44 EDT [facility] Feces SPECIMEN FROM RECTUM / Unknown 08/11/2020 14:50 EDT 08/13/2020 15:22 EDT Narrative [facility] - 08/14/2020 11:44 EDT (If Cryptosporidium, Cyclospora, or Microsporidium are suspected, specific tests must be requested.) Single negative specimen does not rule out the possibility of a parasitic infection. Provider Outr Resulting Lab MICROBIOLOGY - GENERAL ORDERABLES [facility] [address] [place] [address] documented in this encounter Visit Diagnoses Not on filedocumented in this encounter Additional Health Concerns Infection Onset Date Last Indicated Resolved Time RSV 01/31/2022 01/31/2022 02/10/2022 22:1 5 EST documented as of this encounter Care Teams Cloud Consultant Relationship Specialty Start Date End Date Katia Stone, PABijalC [address] [place] [phone] PCP - General 05/02/17 documented as of this encounter
--- OUTSIDE RECORDS SUMMARY | 2023-09-22 18:56 | XMS_ITS | Encounter Summary ---
Author Organization [facility] Address [address] [place] [address] Care Team Providers Care Railroad Detective Name Role Phone Katia Stone PA-C Primary Care Provider +1- [phone] Encounter Details Date Type Department Care Team (Late st Contact Info) Description 01/17/2020 Results Only [facility] [place] [facility] [phone] Jayesh Olmos MD [address] [place] [phone] Social History Tobacco Use Types Packs/Day [...] Procedure Name Priority Date/Time Associated Diagnosis Comments CORTISOL, S PMC TEMP Routine 01/17/2020 7:50 EST BASIC METABOLIC PANEL,RANDOM - PMC Routine 01/17/2020 7:50 EST documented in this encounter Results * CORTISOL, S PMC TEMP (01/17/2020 7:50 EST) Cortisol, S SEE COMMENTS 01/18/2020 17:25 EST [facility] Comment: Test ?Result ?Flag ??Unit ?RefValue Cortisol, S ??AM Result ? 11 ?mcg/dL ??7-25 Test Performed by: [facility] [address] [place] [address] Personal Chef: Pierre Andersen M.D. Ph.D.; CLIA# [id number] 01/17/2020 7:50 EST 01/17/2020 7:51 EST Jayesh Olmos MD CHEMISTRY & BLO OD GAS ORDERABLES [facility] [address] [place] [address] * (ABNORMAL) BASIC METABOLIC PANEL,RANDOM - PMC (01/17/2020 7:50 EST) [facility] Sodium 130(L) 136 - 145 mEq/L 01/17/2020 8:13 [facility] Potassium 3.7 3.5 - 5.1 mEq/L 01/17/2020 8:13 [facility] Chloride 95(L) 96 - 107 mEq/L 01/17/2020 8:13 [facility] CO2 Total 27.4 21 - 32 mEq/L 01/17/2020 8:13 [facility] Anion Gap 7.6 mEq/L 01/17/2020 8:13 [facility] BUN 10 7 - 25 mg/dl 01/17/2020 8:13 [facility] Creatinine 0.62(L) 0.70 - 1.30 mg/dl 01/17/2020 8:13 [facility] Estimated GFR >60 >60 01/17/2020 8:18 [facility] Comment: EGFR UNITS: mL/min/1.73 m 2 CKD-EPI Equation used to calculate. Glucose 91 70 - 180 mg/dl 01/17/2020 8:13 [facility] Calcium 8.4(L) 8.5 - 10.1 mg/dl 01/17/2020 8:13 [facility] 01/17/2020 7:50 EST 01/17/2020 7:51 EST Jayesh Olmos MD CHEMISTRY & BLO OD GAS ORDERABLES Performing Organization Address City/State/[place] Co de Phone Number [facility] [address] [place] [address] documented in this encounter Visit Diagnoses Not on filedocumented in this encounter Care Teams Railroad Detective Relationship Specialty Start Date End Date Katia Stone PABijalC [address] [facility] [place] [address] PCP - General 05/02/17 documented as of this encounter
--- OUTSIDE RECORDS SUMMARY | 2023-09-22 18:56 | XMS_ITS | Encounter Summary ---
Author Organization [facility] Address [address] [place] [address] Care Team Providers Care Vocational Ed Instructor Name Role Phone Katia Stone PA-C Primary Care Provider +1- [phone] Encounter Details Date Type Department Care Team (Late st Contact Info) Description 01/15/2020 Results Only [facility] [address] [place] [address] Unknown, Provider, Social History Tobacco Use Types [...] Priority Date/Time Associated Diagnosis Comments SODIUM Routine 01/15/2020 0:18 EST documented in this encounter Results * (ABNORMAL) SODIUM (01/15/2020 0:18 EST) Sodium 124(L) 136 - 145 mEq/L 01/15/2020 0:36 EST [facility] 01/15/2020 0:18 EST 01/15/2020 0:20 EST Provider Unknown CHEMISTRY & BLOOD GA S ORDERABLES Performing Organization Address City/State/[facility] [[email or web address]] Co de Phone Number [facility] [address] [place] [address] documented in this encounter Visit Diagnoses Not on filedocumented in this encounter Care Teams Vocational Ed Instructor Relationship Specialty Start Date End Date Katia Stone, PABijalC [address] [place] [phone] PCP - General 05/02/17 documented as of this encounter
--- OUTSIDE RECORDS SUMMARY | 2023-09-22 18:56 | XMS_ITS | Encounter Summary ---
Author Organization [facility] Address [address] [place] [address] Care Team Providers Care Sales Order Coordinator Name Role Phone Katia Stone PA-C Primary Care Provider +1- [phone] Encounter Details Date Type Department Care Team (Late st Contact Info) Description 08/11/2020 Results Only [facility] [address] [place] [address] Ester Valerio MD [address] [facility] [address] [place] [phone] Social History Tobacco Use Types Packs/Day Years [...] Priority Date/Time Associated Diagnosis Comments MAGNESIUM Routine 08/11/2020 5:25 EDT HEPATIC FUNCTION PANEL (ALB,ALK PHOS,ALT,AST,DBIL,T OT BOSSMAN,TOT PROT) Routine 08/11/2020 5:25 EDT BASIC METABOLIC PANEL (BMP) Routine 08/11/2020 5:25 EDT documented in this encounter Results * (ABNORMAL) MAGNESIUM (08/11/2020 5:25 EDT) Magnesium 1.5(L) 1.8 - 2.4 mg/dl 08/11/2020 6:07 EDT [facility] 08/11/2020 5:25 EDT 08/11/2020 5:39 EDT Ester Valerio MD CHEMISTRY & BLOO D GAS ORDERABLES Performing Organization Address City/State/[facility] Co de Phone Number [facility] [address] [place] [address] * (ABNORMAL) BASIC METABOLIC PANEL (BMP) (08/11/2020 5:25 EDT) Sodium 132(L) 136 - 145 mEq/L 08/11/2020 6:07 EDT [facility] Potassium 3.5 3.5 - 5.1 mEq/L 08/11/2020 6:07 T [facility] Chloride 99 96 - 107 mEq/L 08/11/2020 6:07 EDT [facility] CO2 Total 28.6 21 - 32 mEq/L 08/11/2020 6:07 [facility] Anion Gap 4.4 mEq/L 08/11/2020 6:07 [facility] BUN 5(L) 7 - 25 mg/dl 08/11/2020 6:07 [facility] Creatinine 0.51(L) 0.70 - 1.30 mg/dl 08/11/2020 6:07 [facility] Estimated GFR >60 >60 08/11/2020 6:07 [facility] Comment: EGFR UNITS: mL/min/1.73 m 2 CKD-EPI Equation used to calculate. Glucose 112(H) 74 - 106 mg/dl 08/11/2020 6:07 [facility] Calcium 7.7(L) 8.5 - 10.1 mg/dl 08/11/2020 6:07 [facility] 08/11/2020 5:25 EDT 08/11/2020 5:39 EDT Ester Valerio MD CHEMISTRY & BLOO D GAS ORDERABLES [facility] [address] [place] [address] * (ABNORMAL) HEPATIC FUNCTION PANEL (ALB,ALK PHOS,ALT,AST,DBIL,TOT BOSSMAN,TOT PROT) (08/11/2020 5:25 EDT) BILIRUBIN - PMC 0.70 0.00 - 1.00 mg/dl 08/11/2020 6:07 [facility] DIRECT BILIRUBIN - PMC 0.30 0.00 - 0.30 mg/dl 08/11/2020 6:07 [facility] INDIRECT BILIRUBIN - PMC 0.40 0.00 - 0.80 mg/dl 08/11/2020 6:07 [facility] AST 39(H) 15 - 37 U/L 08/11/2020 6:07 [facility] ALT 30 16 - 63 U/L 08/11/2020 6:07 [facility] Alkaline Phosphatase 95 46 - 116 U/L 08/11/2020 6:07 EDT [facility] Total Protein 6.1(L) 6.4 - 8.2 g/dl 08/11/2020 6:07 T [facility] Albumin 2.2(L) 3.4 - 5.0 g/dl 08/11/2020 6:07 EDT [facility] GLOBULIN - PMC 3.9 g/dl 08/11/2020 6:07 EDT [facility] ALBUMIN/GLOBULIN RATIO - PMC 0.5 08/11/2020 6:07 EDT [facility] 08/11/2020 5:25 EDT 08/11/2020 5:39 EDT Ester Valerio MD CHEMISTRY & BLOO D GAS ORDERABLES [facility] [address] [place] [address] documented in this encounter Visit Diagnoses Not on filedocumented in this encounter Care Teams Sales Order Coordinator Relationship Specialty Start Date End Date Katia Stone, BELLAC [address] [place] [phone] PCP - General 05/02/17 documented as of this encounter
--- OUTSIDE RECORDS SUMMARY | 2023-09-22 18:57 | XMS_ITS | Encounter Summary ---
Author Organization [facility] Address [address] [place] [address] Care Team Providers Care Ship Surveyor Name Role Phone Katia Stone PA-C Primary Care Provider +1- [phone] Encounter Details Date Type Department Care Team (Late st Contact Info) Description 05/28/2018 Historical Results Only [facility] Results [address] [place], [place] [address] Haja [place] MD [address] [place] [phone] Social History Tobacco Use Types Packs/Day Years Used Date Smoking Tobacco: Never Smokeless Tobacco: Never Sex and Gender Information Value Date Recorded [...] Procedure Name Priority Date/Time Associated Diagnosis Comments BNP Routine 05/28/2018 0:45 EDT HEPATIC & CMP COMBO,FASTING - PMC Routine 05/28/2018 0:45 EDT TROPONIN I Routine 05/28/2018 0:45 EDT COMPLETE BLOOD COUNT AND DIFFERENTIAL Routine 05/28/2018 0:45 EDT XR CHEST 2 VIEWS 05/28/2018 0:11 EDT documented in this encounter Results * (ABNORMAL) BNP - PMC (05/28/2018 0:45 EDT) B-TYPE NATRIURETIC PEPTIDE - PMC 129(H) <100 05/28/2018 1:18 EDT [facility] 05/28/2018 0:45 EDT 05/28/2018 0:55 EDT Haja [place] MD CHEMISTRY & BLOOD G ORDERABLES [facility] * (ABNORMAL) COMPLETE BLOOD COUNT AND DIFFERENTIAL (05/28/2018 0:45 EDT) WBC 10.2 4.0 - 10.5 05/28/2018 0:59 EDT [facility] RBC 3.77(L) 4.70 - 6.00 05/28/2018 0:59 EDT [facility] Hemoglobin 12.7(L) 13.5 - 18.0 05/28/2018 0:59 EDT [facility] HCT 35.3(L) 42.0 - 52.0 05/28/2018 0:59 EDT [facility] MCV 93.6 78 - 100 05/28/2018 0:59 [facility] MCH 33.7(H) 27 - 31 05/28/2018 0:59 [facility] MCHC 36.0 32 - 36 05/28/2018 0:59 [facility] RDW-CV - PMC 12.0 11.5 - 14.0 05/28/2018 0:59 [facility] PLATELET COUNT - PMC 306 150 - 450 05/28/2018 0:59 [facility] NEUTROPHILS % (AUTO) - PMC 76.5(H) 42.0 - 75.0 05/28/2018 0:59 [facility] LYMPHOCYTES % (AUTO) - PMC 14.0(L) 16.0 - 52.0 05/28/2018 0:59 [facility] MONOCYTES % (AUTO) - PMC 7.9 1.0 - 11.0 05/28/2018 0:59 [facility] EOSINOPHILS % (AUTO) - PMC 0.2 0.0 - 7.0 05/28/2018 0:59 [facility] BASOPHILS % (AUTO) - PMC 0.2 0.0 - 4.0 05/28/2018 0:59 [facility] NUCLEATED RBC % (AUTO) - PMC 0.0 <1 05/28/2018 0:59 [facility] NEUTROPHILS # (AUTO) - PMC 7.8(H) 1.5 - 6.6 05/28/2018 0:59 [facility] LYMPHOCYTES # (AUTO) - PMC 1.4 1.0 - 3.5 05/28/2018 0:59 [facility] MONOCYTES # (AUTO) - PMC 0.8 <1.0 05/28/2018 0:59 [facility] EOSINOPHILS # (AUTO) - PMC 0.0 <0.7 05/28/2018 0:59 [facility] BASOPHILS # (AUTO) - PMC 0.0 <0.1 05/28/2018 0:59 [facility] NUCLEATED RBC # (AUTO) - PMC 0.00 <1 05/28/2018 0:59 [facility] 05/28/2018 0:45 EDT 05/28/2018 0:55 EDT Haja [place] MD PACKAGES & DNA PROB E ORDERABLES Performing Organization Address [facility]/ZIP Co de Phone Number [facility] * TROPONIN I (05/28/2018 0:45 EDT) [facility] Troponin I (ng/mL) <0.05 <0.10 05/28/2018 1:23 EDT [facility] Comment: REFERENCE RANGE: Negative: ? <0.10 ng/mL Indeterminate: 0.10-0.80 ng/mL Positive: ? >0.80 ng/mL ........................................... The results of this assay can be falsely decreased due to the consumption of Biotin. 05/28/2018 0:45 EDT 05/28/2018 0:56 EDT Haja [place] MD CHEMISTRY & BLOOD G ORDERABLES Performing Organization Address [facility] Co de Phone Number [facility] * (ABNORMAL) HEPATIC & CMP COMBO,FASTING - PMC (05/28/2018 0:45 EDT) [facility] Sodium 120(L) 136 - 145 05/28/2018 1:21 [facility] Potassium 4.0 3.5 - 5.1 05/28/2018 1:21 [facility] Chloride 83(L) 96 - 107 05/28/2018 1:21 [facility] CO2 Total 25.9 21 - 32 05/28/2018 1:21 [facility] Anion Gap 11.1 05/28/2018 1:21 [facility] BUN 6(L) 7 - 25 05/28/2018 1:21 [facility] Creatinine 0.60(L) 0.7 - 1.30 05/28/2018 1:21 [facility] Estimated GFR >60 >60 05/28/2018 1:25 [facility] Comment: EGFR UNITS: mL/min/1.73 m 2 CKD-EPI Equation used to calculate. Glucose 122 70 - 180 05/28/2018 1:21 [facility] Calcium 9.1 8.5 - 10.5 05/28/2018 1:21 [facility] CALCIUM,CORRECTE D - PMC 9.8 8.5 - 10.5 05/28/2018 1:21 [facility] BILIRUBIN - PMC 0.30 0.00 - 1.00 05/28/2018 1:21 [facility] AST 90(H) 15 - 37 05/28/2018 1:21 [facility] ALT 87(H) 12 - 78 05/28/2018 1:21 [facility] Alkaline Phosphatase 89 46 - 116 05/28/2018 1:21 [facility] Total Protein 8.3(H) 6.4 - 8.2 05/28/2018 1:21 [facility] Albumin 3.1(L) 3.4 - 5.0 05/28/2018 1:21 [facility] GLOBULIN - PMC 5.2 05/28/2018 1:21 [facility] ALBUMIN/GLOBULIN RATIO - PMC 0.5 05/28/2018 1:21 [facility] 05/28/2018 0:45 EDT 05/28/2018 0:56 EDT Haja Raulito [place] MD CHEMISTRY & BLOOD G ORDERABLES [facility] * XR CHEST 2 VIEWS (05/28/2018 0:11 EDT) Anatomical Region Laterality Modality Other 05/28/2018 0:11 EDT Narrative 05/28/2018 0:11 EDT [facility]: [address] [address] Diagnostic Imaging Report Signed Patient Name:DAVID FARFAN ? Date of :1950 ? MR Number:[id number] Age:67 ?Sex:M Category: CR ? Date of Exam:05/28/18 Procedure: CR: Chest; Frontal/LAT views ? Ordering Physician: Haja [place] MD CC: Haja [place] MD Provider, Optional EXAM: XR Chest, 2 Views EXAM DATE/TIME: 05/28/2018 12:11 AM CLINICAL HISTORY: 67 years old, male; Signs and symptoms; Cough and shortness of breath; Prior surgery; Surgery date: 6+ months; Surgery type: Pacemaker TECHNIQUE: Imaging protocol: XR of the chest, 2 views. COMPARISON: No relevant prior studies available. FINDINGS: Lungs: ??The pulmonary catheter is within normal limits. The left lung is clear. There is right basilar airspace opacity that may represent atelectasis and/or pneumonia. In addition, there is increased density along the lateral pleura on the right that may represent diffuse thickening and/or pleural calcification. There is likely a small right pleural effusion. Pleural space: ??See Lungs Finding. Heart/Mediastinum: ??Left chest wall cardiac pacer. The cardiomediastinal silhouette shows cardiac enlargement. Bones/joints: Unremarkable. IMPRESSION: Right basilar airspace opacity with small right pleural effusion, likely representing atelectasis and/or pneumonia. In addition, there is linear density along the lateral right pleura that may represent pleural thickening and/or calcification, incompletely characterized. If not previously obtained, a CT chest is recommended for further evaluation. Report signed by: Alma Sherwood On 05/28/2018 ??02:12:19 Dictated by: Alma Sherwood DO ? D/ 0011 Transcribed by: GABE ? D/T: E-Signed by: Alma Sherwood DO ? D/ 1 Procedure Note Alma Sherwood MD - [facility] [place] [address] Diagnostic Imaging Report Signed Patient Name:DAVID FARFAN Number:[id number] Date of :1950 MRNumber:[id number] Age:67 Sex:M Category: CR Date ofExam:05/28/18 Procedure: CR: Chest; Frontal/LAT viewsAccession: [id number] Ordering Physician: Haja [place] MD CC: Haja [place] MD Provider, Optional EXAM: XR Chest, 2 Views EXAM DATE/TIME: 05/28/2018 12:11 AM CLINICAL HISTORY: 67 years old, male; Signs and symptoms; Cough and shortness of breath;Prior surgery; Surgery date: 6+ months; Surgery type: Pacemaker TECHNIQUE: Imaging protocol: XR of the chest, 2 views. COMPARISON: No relevant prior studies available. FINDINGS: Lungs: The pulmonary catheter is within normal limits. The left lung is clear. There is right basilar airspace opacity that may representatelectasis and/or pneumonia. In addition, there is increased density along thelateral pleura on the right that may represent diffuse thickening and/or pleural calcification. There is likely a small right pleural effusion. Pleural space: See Lungs Finding. Heart/Mediastinum: Left chest wall cardiac pacer. The cardiomediastinal silhouette shows cardiac enlargement. Bones/joints: Unremarkable. IMPRESSION: Right basilar airspace opacity with small right pleural effusion, likely representing atelectasis and/or pneumonia. In addition, there is lineardensity along the lateral right pleura that may represent pleural thickeningand/or calcification, incompletely characterized. If not previously obtained, aCT chest is recommended for further evaluation. Report signed by: Alma Sherwood On 05/28/2018 02:12:19 Dictated by: Alma Sherwood/ 0011 Transcribed by: JOSEPH/T: E-Signed by: Alma Sherwood DOD/ 0212 Haja [place] MD IMG DIAGNOSTIC IMAG ING ORDERABLES documented in this encounter Visit Diagnoses Not on filedocumented in this encounter Additional Health Concerns Infection Onset Date Last Indicated Resolved Time RSV 01/31/2022 01/31/2022 02/10/2022 22:1 5 EST documented as of this encounter Care Teams Ship Surveyor Relationship Specialty Start Date End Date Katia Stone, MINGO [address] [place] [phone] PCP - General 05/02/17 documented as of this encounter
--- OUTSIDE RECORDS SUMMARY | 2023-09-22 18:57 | XMS_ITS | Encounter Summary ---
Author Organization [facility] Address [address] [place] [address] Care Team Providers Care Shaper And Presser Name Role Phone Katia Stone PA-C Primary Care Provider +1- [phone] Encounter Details Date Type Department Care Team (Late st Contact Info) Description 12/12/2018 Results Only [facility] [address] [place] [address] [place] [address] Wang Vila MD [address] [facility], [facility] [address] [place] [address] Social History Tobacco Use Types Packs/Day Years [...] Comments COMPLETE BLOOD COUNT AND DIFFERENTIAL Routine 12/12/2018 22:15 EDT documented in this encounter Results * (ABNORMAL) COMPLETE BLOOD COUNT AND DIFFERENTIAL (12/12/2018 22:15 EDT) WBC 10.1 4.0 - 10.5 10 3/uL 12/12/2018 22:21 [facility] RBC 3.85(L) 4.70 - 6.00 10 6/uL 12/12/2018 22:21 [facility] Hemoglobin 13.1(L) 13.5 - 18.0 g/dL 12/12/2018 22:21 [facility] HCT 36.1(L) 42.0 - 52.0 % 12/12/2018 22:21 [facility] MCV 93.8 78 - 100 fL 12/12/2018 22:21 [facility] MCH 34.0(H) 27 - 31 pg 12/12/2018 22:21 [facility] MCHC 36.3(H) 32 - 36 g/dL 12/12/2018 22:21 [facility] RDW-CV - PMC 11.9 11.5 - 14.0 % 12/12/2018 22:21 [facility] PLATELET COUNT - PMC 208 150 - 450 10 3/uL 12/12/2018 22:21 [facility] NEUTROPHILS % (AUTO) - PMC 52.5 42.0 - 75.0 % 12/12/2018 22:21 [facility] LYMPHOCYTES % (AUTO) - PMC 32.3 16.0 - 52.0 % 12/12/2018 22:21 [facility] MONOCYTES % (AUTO) - PMC 7.8 1.0 - 11.0 % 12/12/2018 22:21 [facility] EOSINOPHILS % (AUTO) - PMC 5.5 0.0 - 7.0 % 12/12/2018 22:21 [facility] BASOPHILS % (AUTO) - PMC 1.4 0.0 - 4.0 % 12/12/2018 22:21 [facility] NUCLEATED RBC % (AUTO) - PMC 0.0 <1 % 12/12/2018 22:21 [facility] NEUTROPHILS # (AUTO) - PMC 5.3 1.5 - 6.6 10 3/uL 12/12/2018 22:21 [facility] LYMPHOCYTES # (AUTO) - PMC 3.3 1.0 - 3.5 10 3/uL 12/12/2018 22:21 [facility] MONOCYTES # (AUTO) - PMC 0.8 <1.0 10 3/uL 12/12/2018 22:21 [facility] EOSINOPHILS # (AUTO) - PMC 0.6 <0.7 10 3/uL 12/12/2018 22:21 [facility] BASOPHILS # (AUTO) - PMC 0.1 <0.1 10 3/uL 12/12/2018 22:21 [facility] NUCLEATED RBC # (AUTO) - PMC 0.00 <1 10 3/uL 12/12/2018 22:21 [facility] 12/12/2018 22:1 5 EDT 12/12/2018 22:19 EDT Wang Vila MD PACKAGES & DNA PROBE ORDERABLES [facility] documented in this encounter Visit Diagnoses Not on filedocumented in this encounter Care Teams Shaper And Presser Relationship Specialty Start Date End Date Katia Stone PA-C [address] [place] [phone] PCP - General 05/02/17 documented as of this encounter
--- OUTSIDE RECORDS SUMMARY | 2023-09-22 18:57 | XMS_ITS | Encounter Summary ---
Author Organization [facility] Address [address] [place] [address] Care Team Providers Care Home Care Chaplain Name Role Phone Katia Stone PA-C Primary Care Provider +1- [phone] Encounter Details Date Type Department Care Team (Late st Contact Info) Description 01/12/2020 Results Only [facility] [address] [place] [address] Jayesh Olguin MD [address] [place] [address] Social History Tobacco Use Types [...] Procedure Name Priority Date/Time Associated Diagnosis Comments POCT GLUCOSE (NURSING) - PMC Routine 01/12/2020 22:30 EST ETHYL ALCOHOL LEVEL - PMC Routine 01/12/2020 22:30 EST BASIC METABOLIC PANEL,RANDOM - PMC Routine 01/12/2020 22:30 EST TROPONIN I Routine 01/12/2020 22:30 EST COMPLETE BLOOD COUNT AND DIFFERENTIAL Routine 01/12/2020 22:30 EST HEPATIC FUNCTION PANEL (ALB,ALK PHOS,ALT,AST,DBIL,TOT BOSSMAN,TOT PROT) Routine 01/12/2020 22:30 EST documented in this encounter Results * (ABNORMAL) POCT GLUCOSE (NURSING) - PMC (01/12/2020 22:30 EST) POC CAPILLARY GLUCOSE - [facility] 102(H) 70 - 100 mg/dL 01/12/2020 22:59 EST [facility] 01/12/2020 22:3 0 EST 01/12/2020 22:58 EST Jayesh Olguin MD POINT OF CARE TEST ORDERABLES [facility] [address] [place] [address] * (ABNORMAL) ETHYL ALCOHOL LEVEL - PMC (01/12/2020 22:30 EST) ETHYL ALCOHOL LEVEL - [facility] 237.0(CRIT HIGH) <10 mg/dL 01/12/2020 23:47 EST [facility] Comment: Results called and read back to me by: Location: ED Full name: FERMIN FAROOQ Credentials: RN at 2346 on 01/12/20 by TESS. Medical Serum/Plasma Alcohol test reported in mg/dL. Example of unit conversion from mg/dL to percentage: ?80 mg/dL is equivalent to 0.08 % 01/12/2020 22:3 0 EST 01/12/2020 23:[address] [facility] - 01/12/2020 23:47 EST Sample collected at time of saline lock or IV placement. Jayesh Olguin MD CHEMISTRY & BLOOD G ORDERABLES Performing Organization Address [facility] de Phone Number [facility] [address] [place] [address] * TROPONIN I (01/12/2020 22:30 EST) Pathologist [facility] Troponin I (ng/mL) <0.050 0 - 0.056 ng/ml 01/12/2020 23:32 EST [facility] Comment: Interpretation: The cutoff [...] lowered due to the consumption of Biotin. 01/12/2020 22:3 0 EST 01/12/2020 23:[address] [facility] - 01/12/2020 23:47 EST Sample collected at time of saline lock or IV placement. Jayesh Olguin MD CHEMISTRY & BLOOD G ORDERABLES Performing Organization Address [facility] Co de Phone Number [facility] [address] [place] [address] * (ABNORMAL) BASIC METABOLIC PANEL,RANDOM - PMC (01/12/2020 22:30 EST) Pathologist [facility] Sodium 116(CRIT LOW) 136 - 145 mEq/L 01/12/2020 23:33 [facility] Comment: Results called and read back to me by: Location: ED Full name: DEBBIE JOSHUA Credentials: RN at 2332 on 01/12/20 by TESS. Potassium 4.3 3.5 - 5.1 mEq/L 01/12/2020 23:32 [facility] Chloride 83(L) 96 - 107 mEq/L 01/12/2020 23:32 [facility] CO2 Total 24.6 21 - 32 mEq/L 01/12/2020 23:32 [facility] Anion Gap 10.4 mEq/L 01/12/2020 23:32 [facility] BUN 5(L) 7 - 25 mg/dl 01/12/2020 23:32 [facility] Creatinine 0.62(L) 0.70 - 1.30 mg/dl 01/12/2020 23:32 [facility] Estimated GFR >60 >60 01/12/2020 23:33 [facility] Comment: EGFR UNITS: mL/min/1.73 m 2 CKD-EPI Equation used to calculate. Glucose 89 70 - 180 mg/dl 01/12/2020 23:32 [facility] Calcium 8.2(L) 8.5 - 10.1 mg/dl 01/12/2020 23:32 [facility] 01/12/2020 22:3 0 EST 01/12/2020 23:03 [facility] - 01/12/2020 23:47 EST Sample collected at time of saline lock or IV placement. Jayesh Olguin MD CHEMISTRY & BLOOD G ORDERABLES Performing Organization Address City/State/[facility] Co de Phone Number [facility] [address] [place] [address] * (ABNORMAL) HEPATIC FUNCTION PANEL (ALB,ALK PHOS,ALT,AST,DBIL,TOT BOSSMAN,TOT PROT) (01/12/2020 22:30 EST) BILIRUBIN - PMC 0.60 0.00 - 1.00 mg/dl 01/12/2020 23:32 [facility] DIRECT BILIRUBIN - PMC 0.20 0.00 - 0.30 mg/dl 01/12/2020 23:32 [facility] INDIRECT BILIRUBIN - PMC 0.40 0.00 - 0.80 mg/dl 01/12/2020 23:32 [facility] AST 74(H) 15 - 37 U/L 01/12/2020 23:32 [facility] ALT 44 16 - 63 U/L 01/12/2020 23:32 [facility] Alkaline Phosphatase 103 46 - 116 U/L 01/12/2020 23:32 [facility] Total Protein 8.1 6.4 - 8.2 g/dl 01/12/2020 23:32 [facility] Albumin 3.3(L) 3.4 - 5.0 g/dl 01/12/2020 23:32 [facility] GLOBULIN - PMC 4.8 g/dl 01/12/2020 23:32 [facility] ALBUMIN/GLOBULIN RATIO - PMC 0.6 01/12/2020 23:32 [facility] 01/12/2020 22:3 0 EST 01/12/2020 23:03 [facility] - 01/12/2020 23:47 EST Sample collected at time of saline lock or IV placement. Jayesh Olguin MD CHEMISTRY & BLOOD G ORDERABLES [facility] [address] [place] [address] * (ABNORMAL) COMPLETE BLOOD COUNT AND DIFFERENTIAL (01/12/2020 22:30 EST) WBC 5.5 4.0 - 10.5 10 3/uL 01/12/2020 23:19 [facility] RBC 3.69(L) 4.70 - 6.00 10 6/uL 01/12/2020 23:19 [facility] Hemoglobin 12.8(L) 13.5 - 18.0 g/dL 01/12/2020 23:19 [facility] HCT 35.3(L) 42.0 - 52.0 % 01/12/2020 23:19 [facility] MCV 95.7 78 - 100 fL 01/12/2020 23:19 [facility] MCH 34.7(H) 27 - 31 pg 01/12/2020 23:19 [facility] MCHC 36.3(H) 32 - 36 g/dL 01/12/2020 23:19 [facility] RDW-CV - PMC 12.6 11.0 - 14.8 % 01/12/2020 23:19 [facility] PLATELET COUNT - PMC 182 150 - 450 10 3/uL 01/12/2020 23:19 [facility] NEUTROPHILS % (AUTO) - PMC 54.5 42.0 - 75.0 % 01/12/2020 23:19 [facility] LYMPHOCYTES % (AUTO) - PMC 29.0 16.0 - 52.0 % 01/12/2020 23:19 [facility] MONOCYTES % (AUTO) - PMC 12.6(H) 1.0 - 11.0 % 01/12/2020 23:19 [facility] EOSINOPHILS % (AUTO) - PMC 2.4 0.0 - 7.0 % 01/12/2020 23:19 [facility] BASOPHILS % (AUTO) - PMC 1.1 0.0 - 4.0 % 01/12/2020 23:19 [facility] NUCLEATED RBC % (AUTO) - PMC 0.0 <1 % 01/12/2020 23:19 [facility] NEUTROPHILS # (AUTO) - PMC 3.0 1.5 - 6.6 10 3/uL 01/12/2020 23:19 [facility] LYMPHOCYTES # (AUTO) - PMC 1.6 1.0 - 3.5 10 3/uL 01/12/2020 23:19 [facility] MONOCYTES # (AUTO) - PMC 0.7 <1.0 10 3/uL 01/12/2020 23:19 [facility] EOSINOPHILS # (AUTO) - PMC 0.1 <0.7 10 3/uL 01/12/2020 23:19 [facility] BASOPHILS # (AUTO) - PMC 0.1 <0.1 10 3/uL 01/12/2020 23:19 [facility] NUCLEATED RBC # (AUTO) - PMC 0.00 <1 10 3/uL 01/12/2020 23:19 [facility] 01/12/2020 22:3 0 EST 01/12/2020 23:04 EST Narrative [facility] - 01/12/2020 23:35 EST Sample collected at time of saline lock or IV placement. Jayesh Olguin MD PACKAGES & DNA PROB E ORDERABLES [facility] [address] [place] [address] documented in this encounter Visit Diagnoses Not on filedocumented in this encounter Care Teams Home Care Chaplain Relationship Specialty Start Date End Date Katia Stone, PABijalC [address] [place] [phone] PCP - General 05/02/17 documented as of this encounter
--- OUTSIDE RECORDS SUMMARY | 2023-09-22 18:57 | XMS_ITS | Encounter Summary ---
Author Organization [facility] Address [address] [place] [address] Care Team Providers Care Phlebotomy Manager Name Role Phone Katia Stone PA-C Primary Care Provider +1- [phone] Encounter Details Date Type Department Care Team (Late st Contact Info) Description 01/13/2020 Results Only [facility] [phone] Jayesh Olmos MD [address] [place] [phone] Social History Tobacco Use Types Packs/Day [...] Priority Date/Time Associated Diagnosis Comments SODIUM Routine 01/13/2020 18:50 EST SODIUM Routine 01/13/2020 13:12 EST documented in this encounter Results * (ABNORMAL) SODIUM (01/13/2020 18:50 EST) Sodium 122(L) 136 - 145 mEq/L 01/13/2020 19:16 EST [facility] 01/13/2020 18:5 0 EST 01/13/2020 18:52 EST Jayesh Olmos MD CHEMISTRY & BLO OD GAS ORDERABLES Performing Organization Address [facility] Co de Phone Number [facility] [address] [place] [phone] * (ABNORMAL) SODIUM (01/13/2020 13:12 EST) Sodium 126(L) 136 - 145 mEq/L 01/13/2020 13:32 EST [facility] 01/13/2020 13:1 2 EST 01/13/2020 13:15 EST Jayesh Olmos MD CHEMISTRY & BLO OD GAS ORDERABLES Performing Organization Address [facility] de Phone Number [facility] [address] [place] [phone] documented in this encounter Visit Diagnoses Not on filedocumented in this encounter Care Teams Phlebotomy Manager Relationship Specialty Start Date End Date Katia Stone PA-C [address] [place] [phone] PCP - General 05/02/17 documented as of this encounter
--- OUTSIDE RECORDS SUMMARY | 2023-09-22 18:57 | XMS_ITS | Encounter Summary ---
Author Organization [facility] Address [address] [place] [address] Care Team Providers Care Chain Puller Name Role Phone Katia Stone PA-C Primary Care Provider +1- [phone] Reason for Visit * Reason Onset Date Comments Other 08/15/2017 Returning Call 08/15/2017 To Belinda Encounter Details Date Type Department Care Team (Late st Contact Info) Description 08/15/2017 Telephone [facility] Cardiology - [address] [place], [place] [id number] Belinda Falk, TISH Other; Returning Call (To Belinda) Social History Tobacco Use Types Packs/Day Years [...] encounter Miscellaneous Notes * Telephone Encounter - Belinda Falk RN - 08/15/2017 1410 EDT Relayed message to Nila who is covering for Yessica that patient should remain on colchicine until has follow-up with Dr. Torres. * Telephone Encounter - Kasia Nunez - 08/15/2017 1313 EDT Reason for Call: Other and Returning Call (To Belinda) Summary/Symptoms: Yessica called back. If you cannot reach her please press 0 and have her paged Kasia Nunez 08/15/2017 13:13 * Telephone Encounter - Belinda Falk RN - 08/15/2017 1255 EDT Call back to Yessica at PCP office message left for Yessica to call office back. Reviewed medication in question Colchicine with Jered Atwood and her recommendations to continue medication until evaluatedby Dr. Torres. Call back number given. * Telephone Encounter - Belinda Falk RN - 08/15/2017 1243 EDT Spoke with Yessica (complex care nurse at PCP) in regards to patient Tim Argueta. Mr Argueta contacted PCP office not feeling well SOB, had was also asking for refill on medication one being Colchicine. Yessica had spoken to office (see telephone encounter for 07/16/17) about colchicine, medication was to be addressed at OV with Dr. Rosenberg on 08/06. Patient was a no show for OV with Dr. Rosenberg on 08/06. Discussed with Yessica patient needs to follow-up with primary armor reconnaissance specialist in [place] Dr. Torres. Per Yessica patient has not seen Dr. Torres since before his first admission to [facility] on 04/30/17. Mentioned to Yessica, patient needs to be following up with PCP and primary armor reconnaissance specialist. Yessica expressed understanding and will reach out to Dr. Torres's office at [facility]. Discharge summaries and last OV note faxed to Dr. Torres's office. Discussed with Yessica if patient is having increased SOB and worsening symptoms, and is not able roshni seen locally. He may need to go to the ER, to be evaluated and imaging completed. Per Yessica shewas to contact patient and suggest patient go to ER. * Telephone Encounter - Belinda Falk RN - 08/15/2017 1121 EDT Call placed to Yessica regarding Tim Mera unable to reach by phone. Left detailed message, patient is [place] patient and no showed for visit with Dr. Rosenberg on 08/06. Instructed Yessica to reach out to [facility] where his primary armor reconnaissance specialist is established on voice mail. documented in this encounter Plan of Treatment Not on file documented as of this encounter Visit Diagnoses Not on filedocumented in this encounter Care Teams Chain Puller Relationship Specialty Start Date End Date Katia Stone, MINGO [address] [place] [phone] PCP - General 05/02/17 documented as of this encounter
--- OUTSIDE RECORDS SUMMARY | 2023-09-22 18:57 | XMS_ITS | Encounter Summary ---
Author Organization [facility] Address [address] [place] [address] Care Team Providers Care Global Position System Technician Name Role Phone Katia Stone PA-C Primary Care Provider +1- [phone] Reason for Visit * Reason Onset Date Comments Other 11/03/2019 pacemaker proble m Encounter Details Date Type Department Care Team (Late st Contact Info) Description 11/03/2019 Telephone [facility] Cardiology - [address] [place] [address] Tony Rosenberg MD [employer] [facility] [address] [place] [address] Other (pacemaker problem) Social History Tobacco Use Types Packs/Day Years [...] steps to the process. Patient expressed understanding. * Telephone Encounter - Belinda Falk RN - 11/04/2019 0913 EDT Call back to Nila relayed message from Dr. Rosenberg. Needs to be done at [facility] when we have the lead extraction program up and running. Will keep you posted. JW Nila expressed understanding, she mentioned patient is anxious and would like to have more information regarding next steps. * Telephone Encounter - Marilyn Escoto - 11/03/2019 1017 EDT Spoke with Nila at [employer], she is wondering about update in regards to plan for lead revision. Nila asks for an update you can reach her at [phone] extension [phone] Please advise * Telephone Encounter - Jada Ochoa - 11/03/2019 1015 EDT Patient's pacemaker has been shocking him. documented in this encounter Plan of Treatment Not on file documented as of this encounter Visit Diagnoses Not on filedocumented in this encounter Care Teams Global Position System Technician Relationship Specialty Start Date End Date Katia Stone PA-C [address] [place] [address] PCP - General 05/02/17 documented as of this encounter
--- OUTSIDE RECORDS SUMMARY | 2023-09-22 18:57 | XMS_ITS | Encounter Summary ---
Author Organization [facility] Address [address] [place] [address] Care Team Providers Care Supervisor [employer] Name Role Phone Katia Stone PA-C Primary Care Provider +1- [phone] Reason for Visit * Reason Onset Date Comments Update 06/12/2017 on admission to [facility] Encounter Details Date Type Department Care Team (Late st Contact Info) Description 06/12/2017 Telephone [facility] Cardiology - [address] [place] [address] Tony Rosenberg MD [address] [place] [address] [address] [place] [address] Update (on admission to [facility]) Social History Tobacco Use Types Packs/Day Years [...] encounter Miscellaneous Notes * Telephone Encounter - Caitie Atwood NP - 06/13/2017 0607 EDT The pt has been admitted to [facility] * Telephone Encounter - Belinda Falk RN - 06/12/2017 1047 EDT Call placed back to Yessica, left a message giving an update on status of patient's admission. * Telephone Encounter - Belinda Falk RN - 06/12/2017 1025 EDT Spoke with Yessica PCP office, gave up-date handling through cardiology office. * Telephone Encounter - Belinda Falk RN - 06/12/2017 1000 EDT LMTCB. * Telephone Encounter - Andra Gonzáles V. - 06/12/2017 0924 EDT Reason for Call: Update (on admission to [facility]) Summary/Symptoms: Yessica would like to speak to the nurse regarding this patient being admitted to [facility] today at Dr. Guevara request Andra Gonzáles 06/12/2017 9:24 documented in this encounter Plan of Treatment Not on file documented as of this encounter Visit Diagnoses Not on filedocumented in this encounter Care Teams Supervisor [employer] Relationship Specialty Start Date End Date Katia Stone, MINGO [address] [place] [phone] PCP - General 05/02/17 documented as of this encounter
--- OUTSIDE RECORDS SUMMARY | 2023-09-22 18:57 | XMS_ITS | Encounter Summary ---
Author Organization [facility] Address [address] [place] [address] Care Team Providers Care Rn Emergency Room Name Role Phone Katia Stone PA-C Primary Care Provider +1- [phone] Reason for Visit * Reason Comments Arrhythmia Encounter Details Date Type Department Care Team (Late st Contact Info) Description 10/13/2019 16:00 EDT Office Visit [facility] Cardiology [address] [address] Tony Rosenberg MD [address] [place] [phone] Heart block AV third degree (HCC-CMS) [...] or suspected to have Coronavirus / COVID-19? No / Unsure 10/08/2019 17:48 EDT documented as of this encounter Functional Status [...] Progress Notes * Tony Rosenberg MD - 10/13/2019 1600 EDT Dictated. * Tony Rosenberg MD - 10/13/2019 1600 EDT Subjective: Patient ID: Tim Mera is an 69 y.o. male. No chief complaint on file. HPI Mr. Mera presented with CHB in 04/2017. He had a BSI DDD PPM inserted without incident. Initially,he felt quit well but approximately 3 weeks post implant he developed significant SOB. He presentedwith pleural and pericardial effusions. The effusions were drained and the leads were repositioned.He had another hospitalization for CHF felt to be secondary to the effusion. This was treated with NSAIDS, colchicine and prednisone. Mr. Mera then felt better but began to experience electric shocks around the PPM. Interrogationof the device demonstrated a rising atrial lead [...] file Gets together: Not on file Attends holiness service: Not on file Active member of [...] with CHB s/p PPm insertion complicated by pericardial effusion and need to reposition both the a end of the lead. He then developed pericarditis and wastreated with nonsteroidals. At this time it looks like the atrial lead outer conductor has failed. The patient feels that the device is giving him electric shocks. The atrial lead impedance is normal. I had a long discussion with Mr. Mera regarding treatment for the atrial lead. Those options include atrial lead replacement and removal of the current lead versus capping the currently. After hearing the risks and benefits of each of these approaches Mr. Mera is leaning towards having the leadexplanted and a new lead implanted. The risks and benefits of lead extraction were discussed in detail with Ede. Plans: Continue current medical therapy Likely atrial lead removal and new lead insertion. documented in this encounter Plan of Treatment Not on file documented as of this encounter Visit Diagnoses Diagnosis 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, complete documented in this encounter Care Teams Rn Emergency Room Relationship Specialty Start Date End Date Katia Stone, PABijalC [address] [place] [phone] PCP - General 05/02/17 documented as of this encounter
--- OUTSIDE RECORDS SUMMARY | 2023-09-22 18:57 | XMS_ITS | Encounter Summary ---
Author Organization [facility] Address [address] [place] [address] Care Team Providers Care Museum Technician Name Role Phone Katia Stone PA-C Primary Care Provider +1- [phone] Encounter Details Date Type Department Care Team (Late st Contact Info) Description 06/11/2017 Results Only [facility] Adult Primary Care - [address] [id number] Michael Pratt MD [facility] [place] [address] Social History Tobacco Use Types Packs/Day Years [...] you have serious difficulty h earing? No 05/21/2017 Are you blind or do you have serious difficulty seeing, even when wearing glasses? No 05/21/2017 Do you have serious difficul ty walking or climbing stairs? (5 years old or older) No 05/21/2017 Do you have difficulty dress ing or bathing? (5 years old or older) No 05/21/2017 Because of a physical, menta l, or emotional condition, do you have difficulty doing errands alone such as visiting a doctor's office or shopping? (15 years old or older) No 05/21/2017 Cognitive Status Response Date of Assessm ent Because of a physical, menta l, or emotional condition, do you have serious difficulty concentrating, remembering, or making decisions? (5 years old or older) No 05/21/2017 documented as of this encounter Plan of Treatment Not on file documented as of this encounter Procedures Procedure Name Priority Date/Time Associated Diagnosis Comments OUTSIDE IMAGES ? ECHO IMAGES 06/11/2017 13:57 EDT documented in this encounter Results * OUTSIDE IMAGES ??? ECHO IMAGES (06/11/2017 13:57 EDT) Anatomical Region Laterality Modality Other 06/11/2017 13:5 7 EDT Narrative 06/11/2017 13:57 EDT This is an outside study - there is no report. Procedure Note SAND SLINGER OPERATOR, IMAGING - 06/13/2017 This is an outside study - there is no report. Michael Pratt MD IMG OTHER IMAGING OR DERABLES documented in this encounter Visit Diagnoses Not on filedocumented in this encounter Care Teams Museum Technician Relationship Specialty Start Date End Date Katia Stone, PABijalC [address] [place] [address] PCP - General 05/02/17 documented as of this encounter
--- OUTSIDE RECORDS SUMMARY | 2023-09-22 18:57 | XMS_ITS | Encounter Summary ---
Author Organization [facility] Address [address] [place] [address] Care Team Providers Care Machinist Automotive Name Role Phone Katia Stone PA-C Primary Care Provider +1- [phone] Encounter Details Date Type Department Care Team (Late st Contact Info) Description 12/12/2018 Results Only [facility] [address] [place] [address] [place] [address] Wang Vila MD [address] [facility], [facility] [address] [place] [address] Social History Tobacco Use Types [...] Procedure Name Priority Date/Time Associated Diagnosis Comments PROCALCITONIN - PMC Routine 12/12/2018 2 2:16 EDT HEPATIC FUNCTION PANEL (ALB,ALK PHOS,ALT,AST,DBIL,TOT BOSSMAN,TOT PROT) Routine 12/12/2018 22:16 EDT BNP Routine 12/12/2018 22:15 EDT BASIC METABOLIC PANEL,RANDOM - PMC Routine 12/12/2018 22:06 EDT TROPONIN I Routine 12/12/2018 22:06 EDT documented in this encounter Results * (ABNORMAL) HEPATIC FUNCTION PANEL (ALB,ALK PHOS,ALT,AST,DBIL,TOT BOSSMAN,TOT PROT) (12/12/2018 22:16 EDT) BILIRUBIN - PMC 0.40 0.00 - 1.00 mg/dl 12/12/2018 23:24 [facility] DIRECT BILIRUBIN - PMC 0.10 0.00 - 0.30 mg/dl 12/12/2018 23:24 [facility] INDIRECT BILIRUBIN - PMC 0.30 0.00 - 0.80 mg/dl 12/12/2018 23:24 [facility] AST 68(H) 15 - 37 U/L 12/12/2018 23:24 [facility] ALT 53 12 - 78 U/L 12/12/2018 23:24 [facility] Alkaline Phosphatase 98 46 - 116 U/L 12/12/2018 23:24 [facility] Total Protein 7.4 6.4 - 8.2 g/dl 12/12/2018 23:24 [facility] Albumin 3.0(L) 3.4 - 5.0 g/dl 12/12/2018 23:24 EDT [facility] GLOBULIN - PMC 4.4 g/dl 12/12/2018 23:24 EDT [facility] ALBUMIN/GLOBULIN RATIO - PMC 0.6 12/12/2018 23:24 EDT [facility] 12/12/2018 22:1 6 EDT 12/12/2018 23:12 EDT Wang Vila MD CHEMISTRY & BLOOD GA S ORDERABLES Performing Organization Address [facility] Co de Phone Number [facility] * PROCALCITONIN - PMC (12/12/2018 22:16 EDT) Procalcitonin <0.05 <0.50 ng/mL 12/12/2018 23:13 EDT [facility] Comment: Concentration of < 0.5 ng/mL represents a low risk of severe sepsis and/or septic shock. It is recommended to retest PCT within 6-24 hours if any concentrations < 2 ng/mL are obtained. Concentrations < 0.5 ng/mL do not exclude an infection, on account of localized infections (without systemic signs) which can be associated with such low concentrations, or a systemic infection in its initial stages (< 6 hours). Furthermore, increased procalcitonin can occur without infection. 12/12/2018 22:1 6 EDT 12/12/2018 22:43 EDT Wang Vila MD HEMATOLOGY & PF4 ORD ERABLES Performing Organization Address City/[facility]/ZIP Co de Phone Number [facility] * (ABNORMAL) BNP - PMC (12/12/2018 22:15 EDT) B-TYPE NATRIURETIC PEPTIDE - PMC 123(H) <100 pg/mL 12/12/2018 22:40 EDT [facility] 12/12/2018 22:1 5 EDT 12/12/2018 22:19 EDT Wang Vila MD CHEMISTRY & BLOOD GA S ORDERABLES Performing Organization Address [facility] de Phone Number [facility] * TROPONIN I (12/12/2018 22:06 EDT) Pathologist [facility] Troponin I (ng/mL) <0.05 <0.10 ng/ml 12/12/2018 23:00 [facility] Comment: REFERENCE RANGE: Negative: ? <0.10 ng/mL Indeterminate: 0.10-0.80 ng/mL Positive: ? >0.80 ng/mL ........................................... The results of this assay can be falsely decreased due to the consumption of Biotin. 12/12/2018 22:0 6 EDT 12/12/2018 22:18 EDT Wang Vila MD CHEMISTRY & BLOOD GA S ORDERABLES Performing Organization Address [facility] de Phone Number [facility] * (ABNORMAL) BASIC METABOLIC PANEL,RANDOM - PMC (12/12/2018 22:06 EDT) [facility] Sodium 120(L) 136 - 145 mEq/L 12/12/2018 23:00 [facility] Potassium 4.6 3.5 - 5.1 mEq/L 12/12/2018 23:00 [facility] Chloride 86(L) 96 - 107 mEq/L 12/12/2018 23:00 [facility] CO2 Total 25.2 21 - 32 mEq/L 12/12/2018 23:00 [facility] Anion Gap 8.8 mEq/L 12/12/2018 23:00 [facility] BUN 7 7 - 25 mg/dl 12/12/2018 23:00 [facility] Creatinine 0.61(L) 0.7 - 1.30 mg/dl 12/12/2018 23:00 [facility] Estimated GFR >60 >60 12/12/2018 23:02 [facility] Comment: EGFR UNITS: mL/min/1.73 m 2 CKD-EPI Equation used to calculate. GLUCOSE,RANDOM - PMC 89 70 - 180 mg/dl 12/12/2018 23:00 EDT [facility] Calcium 8.1(L) 8.5 - 10.5 mg/dl 12/12/2018 23:00 EDT [facility] 12/12/2018 22:0 6 EDT 12/12/2018 22:18 EDT Wang Vila MD CHEMISTRY & BLOOD GA S ORDERABLES [facility] documented in this encounter Visit Diagnoses Not on filedocumented in this encounter Care Teams Machinist Automotive Relationship Specialty Start Date End Date Katia Stone, PABijalC [address] [place] [phone] PCP - General 05/02/17 documented as of this encounter
--- OUTSIDE RECORDS SUMMARY | 2023-09-22 18:57 | XMS_ITS | Encounter Summary ---
Author Organization [facility] Address [address] [place] [address] Care Team Providers Care Account Planner Name Role Phone Katia Stone PA-C Primary Care Provider +1- [phone] Encounter Details Date Type Department Care Team (Late st Contact Info) Description 07/19/2018 Historical Results Only [facility] [address] [place] [address] Vick Limon MD [address] [place] [address] Social History Tobacco Use Types [...] Priority Date/Time Associated Diagnosis Comments BASIC METABOLIC PANEL,RANDOM - PMC Routine 07/19/2018 18:30 EDT COMPLETE BLOOD COUNT AND DIFFERENTIAL Routine 07/19/2018 18:30 EDT POCT GLUCOSE (NURSING) - PMC Routine 07/19/2018 18:21 EDT documented in this encounter Results * (ABNORMAL) COMPLETE BLOOD COUNT AND DIFFERENTIAL (07/19/2018 18:30 EDT) WBC 8.1 4.0 - 10.5 07/19/2018 18:47 [facility] RBC 3.65(L) 4.70 - 6.00 07/19/2018 18:47 [facility] Hemoglobin 12.5(L) 13.5 - 18.0 07/19/2018 18:47 [facility] HCT 34.2(L) 42.0 - 52.0 07/19/2018 18:47 [facility] MCV 93.7 78 - 100 07/19/2018 18:47 [facility] MCH 34.2(H) 27 - 31 07/19/2018 18:47 [facility] MCHC 36.5(H) 32 - 36 07/19/2018 18:47 [facility] RDW-CV - PMC 12.4 11.5 - 14.0 07/19/2018 18:47 [facility] PLATELET COUNT - PMC 158 150 - 450 07/19/2018 18:47 [facility] NEUTROPHILS % (AUTO) - PMC 63.5 42.0 - 75.0 07/19/2018 18:47 [facility] LYMPHOCYTES % (AUTO) - PMC 22.6 16.0 - 52.0 07/19/2018 18:47 [facility] MONOCYTES % (AUTO) - PMC 9.6 1.0 - 11.0 07/19/2018 18:47 [facility] EOSINOPHILS % (AUTO) - PMC 2.9 0.0 - 7.0 07/19/2018 18:47 [facility] BASOPHILS % (AUTO) - PMC 0.7 0.0 - 4.0 07/19/2018 18:47 [facility] NUCLEATED RBC % (AUTO) - PMC 0.0 <1 07/19/2018 18:47 [facility] NEUTROPHILS # (AUTO) - PMC 5.2 1.5 - 6.6 07/19/2018 18:47 [facility] LYMPHOCYTES # (AUTO) - PMC 1.8 1.0 - 3.5 07/19/2018 18:47 [facility] MONOCYTES # (AUTO) - PMC 0.8 <1.0 07/19/2018 18:47 [facility] EOSINOPHILS # (AUTO) - PMC 0.2 <0.7 07/19/2018 18:47 [facility] BASOPHILS # (AUTO) - PMC 0.1 <0.1 07/19/2018 18:47 [facility] NUCLEATED RBC # (AUTO) - PMC 0.00 <1 07/19/2018 18:47 [facility] 07/19/2018 18:3 0 EDT 07/19/2018 18:34 EDT Vick Limon MD PACKAGES & DNA PROBE ORDERABLES [facility] * (ABNORMAL) BASIC METABOLIC PANEL,RANDOM - PMC (07/19/2018 18:30 EDT) Sodium 120(L) 136 - 145 07/19/2018 18:52 [facility] Potassium 4.4 3.5 - 5.1 07/19/2018 18:52 [facility] Chloride 83(L) 96 - 107 07/19/2018 18:52 [facility] CO2 Total 24.6 21 - 32 07/19/2018 18:52 [facility] Anion Gap 13.4 07/19/2018 18:52 [facility] BUN 8 7 - 25 07/19[facility]2018 [facility] Creatinine 0.67(L) 0.7 - 1.30 07/19/2018 18:52 [facility] Estimated GFR >60 >60 07/19/2018 19:01 [facility] Comment: EGFR UNITS: mL/min/1.73 m 2 CKD-EPI Equation used to calculate. Glucose 78 70 - 180 07/19/2018 18:52 [facility] Calcium 8.2(L) 8.5 - 10.5 07/19/2018 18:52 [facility] 07/19/2018 18:3 0 EDT 07/19/2018 18:34 EDT Vick Limon MD CHEMISTRY & BLOOD GA S ORDERABLES Performing Organization Address City/[facility]/ZIP Co de Phone Number [facility] * POCT GLUCOSE (NURSING) - PMC (07/19/2018 18:21 EDT) POC CAPILLARY GLUCOSE - [facility] 86 70 - 100 07/19/2018 18:23 EDT [facility] 07/19/2018 18:2 1 EDT 07/19/2018 18:23 EDT Vick Limon MD POINT OF CARE TEST O RDERABLES [facility] documented in this encounter Visit Diagnoses Not on filedocumented in this encounter Care Teams Account Planner Relationship Specialty Start Date End Date Katia Stone, PABijalC [address] [place] [phone] PCP - General 05/02/17 documented as of this encounter
--- OUTSIDE RECORDS SUMMARY | 2023-09-22 18:57 | XMS_ITS | Encounter Summary ---
Author Organization [facility] Address [address] [place] [address] Care Team Providers Care Subacute Nurse Name Role Phone Katia Stone PA-C Primary Care Provider +1- [phone] Encounter Details Date Type Department Care Team (Late st Contact Info) Description 01/13/2020 Results Only [facility] [address] [place] [address] Unknown, Provider, Social History Tobacco Use Types [...] Date/Time Associated Diagnosis Comments SODIUM Routine 01/13/2020 21:50 EST TROPONIN I Routine 01/13/2020 7:15 EST SODIUM Routine 01/13/2020 7:15 EST OSMOLALITY,S PMC TEMP Routine 01/13/2020 5:42 EST IRON,TIBC,FERRITIN GROUP - PMC Routine 01/13/2020 5:42 EST HEPATIC & CMP COMBO,FASTING - PMC Routine 01/13/2020 5:42 EST THYROID CASCADE Routine 01/13/2020 5:42 EST PROTIME Routine 01/13/2020 5:42 EST COMPLETE BLOOD COUNT AND DIFFERENTIAL Routine 01/13/2020 5:42 EST MAGNESIUM Routine 01/13/2020 5:42 EST FOLATE Routine 01/13/2020 5:42 EST VITAMIN B12 Routine 01/13/2020 5:42 EST OSMOLALITY, UR PMC TEMP Routine 01/13/2020 1:57 EST UA (CULTURE IF POSITIVE) - PMC Routine 01/13/2020 1:57 EST BNP Routine 01/13/2020 1:57 EST UA MICROSCOPIC - PMC Routine 01/13/2020 1:57 EST TROPONIN I Routine 01/13/2020 1:57 EST SODIUM, URINE RANDOM Routine 01/13/2020 1:57 EST SODIUM Routine 01/13/2020 1:57 EST documented in this encounter Results * (ABNORMAL) SODIUM (01/13/2020 21:50 EST) Sodium 120(L) 136 - 145 mEq/L 01/13/2020 22:16 EST [facility] 01/13/2020 21:5 0 EST 01/13/2020 21:55 EST Narrative [facility] - 01/13/2020 22:26 EST Sample collected by ED but method of collection (IV Start or venipuncture) not indicated on sample. Provider Unknown CHEMISTRY & BLOOD GA S ORDERABLES [facility] [address] [place] [address] * TROPONIN I (01/13/2020 7:15 EST) Troponin I (ng/mL) <0.050 0 - 0.056 ng/ml 01/13/2020 7:52 EST [facility] Comment: Interpretation: The cutoff for an abnormal troponin result is set at the 99th percentile of a normal, healthy population. Elevated troponin values must always be interpreted in the context of the clinical presentation. Clinical correlation is required to determine if serial troponin measurements are appropriate. The results of this assay can be falsely lowered due to the consumption of Biotin. 01/13/2020 7:15 EST 01/13/2020 7:18 EST Narrative [facility] - 01/13/2020 7:54 EST Sample collected from indwelling line by non-lab staff. Please Note: Obtaining blood specimens from indwelling lines or VADs may be a problem and a potential source of test error because of incomplete flushing of collection site resulting in contamination and/or dilution of the specimen contributing to inaccurate results. (NCCLS Standards H3-A5, page 21) Provider Unknown CHEMISTRY & BLOOD GA S ORDERABLES [facility] [address] [place] [address] * (ABNORMAL) SODIUM (01/13/2020 7:15 EST) [facility] Sodium 120(L) 136 - 145 mEq/L 01/13/2020 7:52 [facility] 01/13/2020 7:15 EST 01/13/2020 7:18 [facility] - 01/13/2020 7:54 EST Sample collected from indwelling line by non-lab staff. Please Note: Obtaining blood specimens from indwelling lines or VADs may be a problem and a potential source of test error because of incomplete flushing of collection site resulting in contamination and/or dilution of the specimen contributing to inaccurate results. (NCCLS Standards H3-A5, page 21) Provider Unknown CHEMISTRY & BLOOD GA S ORDERABLES Performing Organization Address [facility] de Phone Number [facility] [address] [place] [address] * OSMOLALITY,S PMC TEMP (01/13/2020 5:42 EST) [facility] OSMOLALITY,S 280 275 - 295 mOsm/kg 01/14/2020 18:37 [facility] Comment: Test Performed by: [place] [address] Aircraft Shipping Checker: Pierre Andersen M.D. Ph.D.; CLIA# [id number] 01/13/2020 5:42 EST 01/13/2020 5:52 [facility] - 01/14/2020 18:37 EST Sample collected by ED but method of collection (IV Start or venipuncture) not indicated on sample. Provider Unknown CHEMISTRY & BLOOD GA S ORDERABLES Performing Organization Address [facility] Co de Phone Number [facility] [address] [place] [address] * FOLATE (01/13/2020 5:42 EST) [facility] Folate 18.7 >8.6 ng/mL 01/13/2020 7:43 [facility] 01/13/2020 5:42 EST 01/13/2020 5:54 EST Provider Unknown CHEMISTRY & BLOOD GA S ORDERABLES Performing Organization Address [facility] Phone Number [facility] [address] [place] [address] * VITAMIN B12 (01/13/2020 5:42 EST) Vitamin B12 246 193 - 986 pg/mL 01/13/2020 7:43 [facility] Comment: The results of this assay can be falsely elevated due to the consumption of Biotin. 01/13/2020 5:42 EST 01/13/2020 5:54 EST Provider Unknown CHEMISTRY & BLOOD GA S ORDERABLES Performing Organization Address [facility] Number [facility] [address] [place] [address] * (ABNORMAL) IRON,TIBC,FERRITIN GROUP - PMC (01/13/2020 5:42 EST) Iron 178(H) 65 - 175 mcg/dL 01/13/2020 7:43 [facility] Iron Binding Capacity 193(L) 250 - 450 mcg/dL 01/13/2020 7:43 [facility] PERCENT IRON SATURATION - PMC 92(H) 14 - 50 % 01/13/2020 7:43 [facility] Ferritin >1,000(H) 26 - 388 ng/mL 01/13/2020 7:43 [facility] 01/13/2020 5:42 EST 01/13/2020 5:54 EST Provider Unknown CHEMISTRY & BLOOD GA S ORDERABLES Performing Organization Address [facility] Co de Phone Number [facility] [address] [place] [address] * PROTIME (01/13/2020 5:42 EST) Pro Time 11.1 9.0 - 12.3 SEC 01/13/2020 6:47 [facility] PROTHROMBIN TIME WITH INR - PMC 1.1 0.8 - 1.2 RATIO 01/13/2020 6:47 [facility] Comment: Interpretive Information: Moderate Intensity Coumadin INR = 2.0-3.0. Adjustments in anticoagulant therapy dose should be based upon the INR and not the PT in seconds. The INR is used only on patients on stable oral anticoagulant therapy. It makes no significant contribution to the diagnosis or treatment of patients whose PT is prolonged for other reasons. 01/13/2020 5:42 EST 01/13/2020 5:[address] [facility] - 01/13/2020 6:48 EST Sample collected by ED but method of collection (IV Start or venipuncture) not indicated on sample. Provider Unknown HEMATOLOGY & PF4 ORD ERABLES Performing Organization Address [facility] Phone Number [facility] [address] [place] [address] * THYROID CASCADE (01/13/2020 5:42 EST) TSH 1.958 0.360 - 3.740 mIU/L 01/13/2020 6:35 [facility] Comment: Note: This is a Third Generation Assay .......................................... The results of this assay can be falsely decreased due to the consumption of Biotin. 01/13/2020 5:42 EST 01/13/2020 5:[address] [facility] - 01/13/2020 6:35 EST Sample collected by ED but method of collection (IV Start or venipuncture) not indicated on sample. Provider Unknown CHEMISTRY & BLOOD GA S ORDERABLES Performing Organization Address [facility] Co nh Phone Number [facility] [address] [place] [address] * (ABNORMAL) MAGNESIUM (01/13/2020 5:42 EST) Magnesium 1.4(L) 1.8 - 2.4 mg/dl 01/13/2020 6:35 [facility] 01/13/2020 5:42 EST 01/13/2020 5:51 [facility] - 01/13/2020 6:35 EST Sample collected by ED but method of collection (IV Start or venipuncture) not indicated on sample. Provider Unknown MD CHEMISTRY & BLOOD GA S ORDERABLES [facility] [address] [place] [address] * (ABNORMAL) HEPATIC & CMP COMBO,FASTING - PMC (01/13/2020 5:42 EST) Sodium 121(L) 136 - 145 mEq/L 01/13/2020 6:35 [facility] Potassium 4.1 3.5 - 5.1 mEq/L 01/13/2020 6:35 [facility] Chloride 87(L) 96 - 107 mEq/L 01/13/2020 6:35 [facility] CO2 Total 25.5 21 - 32 mEq/L 01/13/2020 6:35 [facility] Anion Gap 8.5 mEq/L 01/13/2020 6:35 [facility] BUN 4(L) 7 - 25 mg/dl 01/13/2020 6:35 [facility] Creatinine 0.60(L) 0.70 - 1.30 mg/dl 01/13/2020 6:35 [facility] Estimated GFR >60 >60 01/13/2020 6:35 [facility] Comment: EGFR UNITS: mL/min/1.73 m 2 CKD-EPI Equation used to calculate. Glucose 70 70 - 180 mg/dl 01/13/2020 6:35 [facility] Calcium 7.9(L) 8.5 - 10.1 mg/dl 01/13/2020 6:35 [facility] CALCIUM,CORRECTE D - PMC 8.9 8.5 - 10.5 mg/dl 01/13/2020 6:35 [facility] BILIRUBIN - PMC 0.70 0.00 - 1.00 mg/dl 01/13/2020 6:35 [facility] AST 56(H) 15 - 37 U/L 01/13/2020 6:35 [facility] ALT 38 16 - 63 U/L 01/13/2020 6:35 [facility] Alkaline Phosphatase 87 46 - 116 U/L 01/13/2020 6:35 [facility] Total Protein 6.8 6.4 - 8.2 g/dl 01/13/2020 6:35 [facility] Albumin 2.7(L) 3.4 - 5.0 g/dl 01/13/2020 6:35 [facility] GLOBULIN - PMC 4.1 g/dl 01/13/2020 6:35 [facility] ALBUMIN/GLOBULIN RATIO - PMC 0.6 01/13/2020 6:35 [facility] 01/13/2020 5:42 EST 01/13/2020 5:51 [facility] - 01/13/2020 6:35 EST Sample collected by ED but method of collection (IV Start or venipuncture) not indicated on sample. Provider Unknown CHEMISTRY & BLOOD GA S ORDERABLES Performing Organization Address City/State/[facility] Co de Phone Number [facility] [address] [place] [address] * (ABNORMAL) COMPLETE BLOOD COUNT AND DIFFERENTIAL (01/13/2020 5:42 EST) WBC 5.2 4.0 - 10.5 10 3/uL 01/13/2020 6:17 [facility] RBC 3.24(L) 4.70 - 6.00 10 6/uL 01/13/2020 6:17 [facility] Hemoglobin 11.3(L) 13.5 - 18.0 g/dL 01/13/2020 6:17 [facility] HCT 30.8(L) 42.0 - 52.0 % 01/13/2020 6:17 [facility] MCV 95.1 78 - 100 fL 01/13/2020 6:17 [facility] MCH 34.9(H) 27 - 31 pg 01/13/2020 6:17 [facility] MCHC 36.7(H) 32 - 36 g/dL 01/13/2020 6:17 [facility] RDW-CV - PMC 12.5 11.0 - 14.8 % 01/13/2020 6:17 [facility] PLATELET COUNT - PMC 161 150 - 450 10 3/uL 01/13/2020 6:17 [facility] NEUTROPHILS % (AUTO) - PMC 52.1 42.0 - 75.0 % 01/13/2020 6:17 [facility] LYMPHOCYTES % (AUTO) - PMC 30.5 16.0 - 52.0 % 01/13/2020 6:17 [facility] MONOCYTES % (AUTO) - PMC 13.8(H) 1.0 - 11.0 % 01/13/2020 6:17 [facility] EOSINOPHILS % (AUTO) - PMC 1.7 0.0 - 7.0 % 01/13/2020 6:17 [facility] BASOPHILS % (AUTO) - PMC 1.3 0.0 - 4.0 % 01/13/2020 6:17 [facility] NUCLEATED RBC % (AUTO) - PMC 0.0 <1 % 01/13/2020 6:17 [facility] NEUTROPHILS # (AUTO) - PMC 2.7 1.5 - 6.6 10 3/uL 01/13/2020 6:17 [facility] LYMPHOCYTES # (AUTO) - PMC 1.6 1.0 - 3.5 10 3/uL 01/13/2020 6:17 [facility] MONOCYTES # (AUTO) - PMC 0.7 <1.0 10 3/uL 01/13/2020 6:17 [facility] EOSINOPHILS # (AUTO) - PMC 0.1 <0.7 10 3/uL 01/13/2020 6:17 [facility] BASOPHILS # (AUTO) - PMC 0.1 <0.1 10 3/uL 01/13/2020 6:17 [facility] NUCLEATED RBC # (AUTO) - PMC 0.00 <1 10 3/uL 01/13/2020 6:17 [facility] 01/13/2020 5:42 EST 01/13/2020 5:55 EST Narrative [facility] - 01/13/2020 6:48 EST Sample collected by ED but method of collection (IV Start or venipuncture) not indicated on sample. Provider Unknown MD PACKAGES & DNA PROBE ORDERABLES [facility] [address] [place] [address] * OSMOLALITY, UR PMC TEMP (01/13/2020 1:57 EST) Osmolality, Ur 239 150 - 1150 mOsm/kg 01/14/2020 18:37 EST [facility] Comment: Test Performed by: [place] [address] Aircraft Shipping Checker: Pierre Andersen M.D. Ph.D.; CLIA# [id number] 01/13/2020 1:57 EST 01/13/2020 2:14 EST Provider Unknown CHEMISTRY & BLOOD GA S ORDERABLES Performing Organization Address City/[facility]/ZIP Co de Phone Number [facility] [address] [place] [address] * UA MICROSCOPIC - PMC (01/13/2020 1:57 EST) URINE RBC - PMC None Seen 0 - 2 hpf 0 3:06 [facility] URINE WBC - PMC None seen 0 - 3 hpf 0 3:06 [facility] URINE BACTERIA - PMC None Seen None Seen hpf 01/13/2020 3:06 [facility] URINE MUCUS - PMC None Seen lpf 01/13/2020 3:06 [facility] URINE SQUAMOUS EPITHELIAL CELL - PMC None Seen None-Few hpf 01/13/2020 3:06 [facility] 01/13/2020 1:57 EST 01/13/2020 2:15 EST Narrative [facility] - 01/13/2020 3:07 EST Clean Catch Provider Unknown CHEMISTRY & BLOOD GA S ORDERABLES [facility] [address] [place] [address] * TROPONIN I (01/13/2020 1:57 EST) [facility] Troponin I (ng/mL) <0.050 0 - 0.056 ng/ml 01/13/2020 2:42 EST [facility] Comment: Interpretation: The cutoff for an abnormal troponin result is set at the 99th percentile of a normal, healthy population. Elevated troponin values must always be interpreted in the context of the clinical presentation. Clinical correlation is required to determine if serial troponin measurements are appropriate. The results of this assay can be falsely lowered due to the consumption of Biotin. 01/13/2020 1:57 EST 01/13/2020 2:11 EST Provider Unknown CHEMISTRY & BLOOD GA S ORDERABLES Performing Organization Address [facility] Co de Phone Number [facility] [address] [place] [address] * (ABNORMAL) SODIUM (01/13/2020 1:57 EST) [facility] Sodium 118(CRIT LOW) 136 - 145 mEq/L 01/13/2020 2:59 EST [facility] Comment: Results called and read back to me by: Location: ER Full name: LEV JOSHUA Credentials: RN at 0258 on 01/13/20 by TESS. 01/13/2020 1:57 EST 01/13/2020 2:11 EST Provider Unknown CHEMISTRY & BLOOD GA S ORDERABLES [facility] [address] [place] [address] * (ABNORMAL) BNP - PMC (01/13/2020 1:57 EST) Pathologist [facility] B-TYPE NATRIURETIC PEPTIDE - PMC 549(H) <100 pg/mL 01/13/2020 2:36 EST [facility] 01/13/2020 1:57 EST 01/13/2020 2:12 EST Provider Unknown CHEMISTRY & BLOOD GA S ORDERABLES [facility] [address] [place] [address] * (ABNORMAL) UA (CULTURE IF POSITIVE) - PMC (01/13/2020 1:57 EST) URINE COLOR - PMC Yellow Straw/Yelow 01/13/2020 2:26 [facility] URINE APPEARANCE - PMC Clear Clr/Hazy 01/13/2020 2:26 [facility] URINE PH - PMC 6.0 5.0 - 9.0 01/13/2020 2:26 [facility] UR SPECIFIC GRAVITY (REFRACTOM) - PMC 1.006 1.001 - 1.035 01/13/2020 2:40 [facility] URINE PROTEIN - PMC Negative Negative mg/dL 01/13/2020 2:26 [facility] URINE GLUCOSE (UA) - PMC Negative Negative mg/dL 01/13/2020 2:26 [facility] URINE KETONES - PMC Trace(A) Negative mg/dL 01/13/2020 2:26 [facility] URINE BILIRUBIN - PMC Negative Negative 01/13/2020 2:26 [facility] URINE BLOOD - PMC Trace(A) Negative 01/13/2020 2:26 [facility] URINE UROBILINOGEN - PMC 0.2 0.2 - 1.0 E.U./dL 01/13/2020 2:26 [facility] URINE NITRATE - PMC Negative Negative 01/13/2020 2:26 [facility] URINE LEUKOCYTE ESTERASE - PMC Negative Negative 01/13/2020 2:26 [facility] URINE CULTURE COMMENTS - PMC CRITERIA NOT MET 01/13/2020 3:06 [facility] Comment:Specimen does not me et criteria for culture. 01/13/2020 1:57 EST 01/13/2020 2:[address] [facility] - 01/13/2020 3:07 EST Clean Catch Provider Unknown MICROBIOLOGY - GENER AL ORDERABLES [facility] [address] [place] [address] * SODIUM, URINE RANDOM (01/13/2020 1:57 EST) Sodium, Urine 52 20 - 110 mEq/L 01/13/2020 2:35 EST [facility] 01/13/2020 1:57 EST 01/13/2020 2:14 EST Provider Unknown MD URINALYSIS ORDERABLE S Performing Organization Address City/State/[facility] Co de Phone Number [facility] [address] [place] [address] documented in this encounter Visit Diagnoses Not on filedocumented in this encounter Care Teams Subacute Nurse Relationship Specialty Start Date End Date Katia Stone, PA-C [address] [place] [address] PCP - General 05/02/17 documented as of this encounter
--- OUTSIDE RECORDS SUMMARY | 2023-09-22 18:57 | XMS_ITS | Encounter Summary ---
Author Organization [facility] Address [address] [place] [address] Care Team Providers Care Evaluation Analyst Name Role Phone Katia Stone PA-C Primary Care Provider +1- [phone] Encounter Details Date Type Department Care Team (Late st Contact Info) Description 08/13/2018 Historical Results Only [facility] [address] [place], [place] [id number] Katia Stone, MINGO [address] [place] [address] Social History Tobacco Use Types [...] HEPATIC & CMP COMBO,FASTING - PMC Routine 08/13/2018 11:28 EDT documented in this encounter Results * (ABNORMAL) HEPATIC & CMP COMBO,FASTING - PMC (08/13/2018 11:28 EDT) Sodium 125(L) 136 - 145 08/13/2018 12:52 [facility] Potassium 4.9 3.5 - 5.1 08/13/2018 12:52 [facility] Chloride 91(L) 96 - 107 08/13/2018 12:52 [facility] CO2 Total 25.4 21 - 32 08/13/2018 12:52 [facility] Anion Gap 8.6 08/13/2018 12:52 [facility] BUN 7 7 - 25 08/13/2018 12:52 [facility] Creatinine 0.59(L) 0.7 - 1.30 08/13/2018 12:52 [facility] Estimated GFR >60 >60 08/13/2018 12:53 [facility] Comment: EGFR UNITS: mL/min/1.73 m 2 CKD-EPI Equation used to calculate. Glucose 88 FASTIN -99 08/13/2018 12:52 [facility] Calcium 8.1(L) 8.5 - 10.5 08/13/2018 12:52 [facility] CALCIUM,CORRECTE D - PMC 8.7 8.5 - 10.5 08/13/2018 12:52 [facility] BILIRUBIN - PMC 0.20 0.00 - 1.00 08/13/2018 12:52 [facility] AST 40(H) 15 - 37 08/13/2018 12:52 [facility] ALT 45 12 - 78 08/13/2018 12:52 [facility] Alkaline Phosphatase 112 46 - 116 08/13/2018 12:52 EDT [facility] Total Protein 7.1 6.4 - 8.2 08/13/2018 12:52 [facility] Albumin 3.2(L) 3.4 - 5.0 08/13/2018 12:52 T [facility] GLOBULIN - PMC 3.9 08/13/2018 12:52 T [facility] ALBUMIN/GLOBULIN RATIO - PMC 0.8 08/13/2018 12:52 T [facility] 08/13/2018 11:2 8 EDT 08/13/2018 11:37 EDT Katia Stone PA-C CHEMISTRY & BLOOD GAS ORDERABLES [facility] documented in this encounter Visit Diagnoses Not on filedocumented in this encounter Care Teams Evaluation Analyst Relationship Specialty Start Date End Date Katia Stone PA-C [address] [place] [phone] PCP - General 05/02/17 documented as of this encounter
--- OUTSIDE RECORDS SUMMARY | 2023-09-22 18:57 | XMS_ITS | Encounter Summary ---
Author Organization [facility] Address [address] [place] [address] Care Team Providers Care Underwear Trimmer Name Role Phone Katia Stone PA-C Primary Care Provider +1- [phone] Encounter Details Date Type Department Care Team (Latest Contact Info) Description 10/08/2019 Travel Social History Tobacco Use [...] on filedocumented in this encounter Care Teams Underwear Trimmer Relationship Specialty Start Date End Date Katia Stone, BELLAC [address] [place] [phone] PCP - General 05/02/17 documented as of this encounter
--- OUTSIDE RECORDS SUMMARY | 2023-09-22 18:57 | XMS_ITS | Encounter Summary ---
Author Organization [facility] Address [address] [place] [address] Care Team Providers Care Balloon Dipper Name Role Phone Katia Stone PA-C Primary Care Provider +1- [phone] Reason for Visit * Reason Onset Date Comments Follow-up 12/23/2019 TE 11/02 Encounter Details Date Type Department Care Team (Late st Contact Info) Description 12/23/2019 Telephone [facility] Cardiology - [address] [place], [place] [id number] Tony Rosenberg MD [address] [place] [address] [address] [place] [address] Follow-up (TE 11/02) Social History Tobacco Use Types Packs/Day Years [...] patient declined. Message forwarded to Dr. Rosenberg. * Telephone Encounter - Whitney Young - 12/23/2019 1543 EDT Patient states that he is supposed to be having a lead replaced; please call as soon as possible documented in this encounter Plan of Treatment Not on file documented as of this encounter Visit Diagnoses Not on filedocumented in this encounter Care Teams Balloon Dipper Relationship Specialty Start Date End Date Katia Stone, PABijalC [address] [place] [phone] PCP - General 05/02/17 documented as of this encounter
--- OUTSIDE RECORDS SUMMARY | 2023-09-22 18:57 | XMS_ITS | Encounter Summary ---
Author Organization [facility] Address [address] [place] [address] Care Team Providers Care Collar Folder Operator Name Role Phone Katia Stone PA-C Primary Care Provider [phone] Reason for Referral * Consult (Routine) - New Request Specialty Diagnoses / Procedures Referred By Contac t Referred To Contact Diagnoses Heart failure, unspecified HF chronicity, unspecified heart failure type (HCC-CMS) Subacute effusive constrictive pericarditis Michael Pratt MD [facility] [place] [address] Referral ID Status Reason Start Date Expiration Date Visits Requested Visits Authorized [id number] New Request Specialty Services Required 06/16/2017 1 1 Question Answer Reason for Request: f/u constrictive pericarditis Expected Discharge Date (Inpatient Only): 06/16/2017 Practice Site (External Referral Only): [facility] Comments With Dr. Torres * Follow Up (3 - 10 Business Days) - Receiving Office to Obtain Authorization Specialty Diagnoses / Procedures Referred By Contac t Referred To Contact Diagnoses Heart failure, unspecified HF chronicity, unspecified heart failure type (HCC-CMS) Subacute effusive constrictive pericarditis Bg Atwood MD [address] [facility] [address] [place] [address] Referral ID Status Reason Start Date Expiration Date Visits Requested Visits Authorized [id number] Receiving Office to Obtain Authorization Continuity of Care 8 1 1 Question Answer Reason for Request: f/u hospitalization for constrictive pericarditis Expected Discharge Date (Inpatient Only): 06/16/2017 * Referral (Routine/Next Available) - New Request Specialty Diagnoses / Procedures Referred By Contac t Referred To Contact Diagnoses Heart failure, unspecified HF chronicity, unspecified heart failure type (HCC-CMS) Subacute effusive constrictive pericarditis Bg Atwood MD [address] [place] [phone] [address] Referral ID Status Reason Start Date Expiration Date Visits Requested Visits Authorized [id number] New Request Specialty Services Required 06/16/2017 1 1 Question Answer I certify that this patient is under my care and that I, or another Medicare allowed practitioner (DO CHAMP, PACHECO) working with me, had a jzoe-sh-ypmq encounter with this patient on this date: 06/16/2017 I further certify that the fqzt-jv-qjtl encounter was in whole or in part related to the reason the patient needs home health care. Yes The discharge summary or progress note will provide further details that support the need for the home health services and the plan of care. Yes Enter the allowed practitioner (DO CHAMP, PACHECO) who will provide oversight of this patient's home heatlh care needs and plan of care Katia Mccallum The patient? s homebound status is related to the following diagnoses, illness or condition (describe): Cardiac disease The patient has a condition due to an illness or injury that restricts the ability to leave home except with: Assistance not necessary, but medically contraindicated as indicated below. Leaving the home is medically contraindicated due to (reason 1): Other Please Specify: acute cardiac disease Leaving home requires a considerable and taxing effort with mobility limited by the following (criteria 1): The severity of cardiac disease limits activity tolerance and ambulation Nursing skilled care requested: Nursing asessment long-term assessment needed related to this encounter: Response to new or changed medication Expected Discharge Date (Inpatient Only): 06/16/2017 Encounter Details Date Type Department Care Team (Late st Contact Info) Description 06/12/2017 17:51 EDT - 06/16/2017 16:57 EDT Hospital Encounter [facility] Cardiac/Telemetry Unit [address] [place] [address] Seng Rand MD PhD [address] [facility] Level [address] [place] [address] Bg Atwood MD [address] [address] Tony Rosenberg MD [address] [address] Heart failure, unspecified HF chronicity, unspecified heart failure type (HCC-CMS) (Primary Dx); Subacute effusive constrictive pericarditis Discharge Disposition: Home-Health Care Svc Social History Tobacco Use Types Packs/Day Years [...] No 06/12/2017 documented as of this encounter Discharge Diagnoses Diagnosis 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] J91.8 Pleural effusion in other conditions classified elsewhere-J91.8[ICD-10-CM] Z95.0 Presence of cardiac pacemaker-Z95.0[ICD-10-CM] R00.0 Tachycardia, unspecified-R00.0[ICD-10-CM] R05 Cough-R05[ICD-10-CM] I50.89 Other heart failure-I50.89[ICD-10-CM] E87.6 HYPOKALEMIA[ICD-10-CM] E83.42 HYPOMAGNESEMIA[ICD-10-CM] documented in this encounter Discharge Summaries * Bg Atwood MD - 06/16/2017 1518 EDT Cardiology Discharge Summary Primary Care Provider: Katia Mccallum Attending Physician: Bg Atwood MD Admit Date: 06/12/2017 Discharge Date: 06/16/2017 Disposition: Home with home health Problems and Procedures Admitting Diagnosis: Heart failure, unspecified HF chronicity, unspecified heart failure type ([facility]) 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 Heart failure ([facility]) 06/12/2017 Resolved Hospital Problems Diagnosis Date Noted [...] [facility]. He was transferred to [facility] due to concern for subacute constrictive pericarditis with pleural effusions. He was continued on colchicine with addition ofprednisone. He underwent thoracentesis of his L pleural effusion (LDH > 2/3 upper limit of normal consistent with exudative effusion) with some improvement in his symptoms. He was unable to complete R heart cath due to orthopnea, though he improved [...] Component Value Units Date/Time Bacterial Culture/Smear, Fluid [[id number]] Collected: 06/13/17 0826 Lab Status: Preliminary result Specimen: FOSMIC from Pleural Fluid Updated: 06/15/17 07 Gram Smear Result Polys present No bacteria seen Result No growth Bacterial Culture, Blood [[id number]] Collected: 06/12/172246 Lab Status: In process Specimen: Blood Updated: 06/12/172320 Bacterial Culture, Blood [[id number]] Collected: 06/12/172239 Lab Status: In process Specimen: [...] 05/01/2017 Discharge Follow Up Appointments Scheduled with [facility] Upcoming Appointments Aug 06, 2017 15:20 EDT Follow Up Return with Tony Rosenberg MD [facility] Cardiology [facility] (--) [address] [facility] [address] Appointments Outside of [facility] We Will Schedule Follow-up appointments and procedures Amb Consult/Follow Up Cardiology With Dr. Torres Reason for Request: f/u constrictive pericarditis Expected Discharge Date (Inpatient Only): 06/16/2017 Practice Site (External Referral Only): [facility] Authorizing Provider: Michael Pratt MD Amb Consult/Follow Up Primary Care Physician Reason for Request: f/u hospitalization for constrictive pericarditis Expected Discharge Date (Inpatient Only): 06/16/2017 Authorizing Provider: Bg Atwood MD Home Health Agency-Other I certify that this patient is under my care and that I, or another Medicare authorized non-physician practitioner (PA or TRACK MACHINE OPERATOR REPAIRER) or resident working with me, had a cdix-vv-xnor encounter with this patient on this date: 06/16/2017 I further certify that the wwvi-ci-vpyj encounter was in whole or in part related to the reason thepatient needs home health care.: Yes The patient has had a jpup-ir-mckr visit by me or one of my [...] normal inability to leave home AND that leavinghome requires a considerable and taxing effort: The severity of cardiac disease limits activity tolerance and ambulation Skilled Care Requested: Nursing asessment long-term assessment needed related to this encounter: Response to new or changed medication Expected Discharge Date (Inpatient Only): 06/16/2017 Authorizing Provider: Bg Atwood MD Additional Information: Please follow up at [facility] with Dr. Tony Rosenberg on August 06, 2017 at 3:20 pm. If you have questions please call [phone]. Please follow up with your primary care physician, Katia Mccallum, on June 17, 2017 at 10:45 am. Ifyou have any questions please call [phone]. Studies We Will Schedule Appointments We Recommend but have not been Scheduled None Michael Pratt MD 06/16/2017 15:18 I evaluated the patient and agree with the discharge summary as outlined above by Dr. Pratt. Mr. Farfan was feeling much better today. 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 BG ATWOOD MD Attending Electric Fork Operator [facility] documented in this encounter Discharge Instructions * Appointments* Desi Thomas - 06/16/2017 12:01 EDT Please follow up at [facility] with Dr. Tony Rosenberg on August 06, 2017 at 3:20 pm. If you have questions please call [phone]. Please follow up with your primary care physician, Katia Mccallum, on June 17, 2017 at 10:45 am. Ifyou have any questions please call [phone]. * Discharge Instr - Other Orders* Melida Natarajan RN - 06/13/2017 8:26 EDT Remember the [...] shortness of breath, or increase leg swelling. * Attachments The following attachments cannot be sent through Care Everywhere. * HEART FAILURE: AVOIDING TRIGGERS (PORTUGUESE) documented in this encounter Medications at Time of Discharge Medication Sig Dispensed Refills Start Date End Date acetaminophen (TYLENOL) 500 mg tablet Take 1,000 mg by mouth 2 times daily. colchicine (COLCRYS) 0.6 mg tablet Take 1 Tab by mouth 2 times daily. 60 Tab 05/27/2017 metoprolol (LOPRESSOR) 25 mg tablet Take 1 Tab by mouth 2 times daily. 60 Tab 3 06/16/2017 predniSONE (DELTASONE) 10 mg tablet Take 30mg [...] 2 05/27/2017 documented as of this encounter Ordered Prescriptions Prescription Sig Dispensed Refills Start Date End Da te predniSONE (DELTASONE) 10 mg tablet Take 30mg (20+10) 06/17-06/30; 20mg (20) ; 10mg (10) 07/15-07/28; 5mg (1/2 of 10) 07/29-08/04 32 Tab 06/16/2017 predniSONE (DELTASONE) 20 mg tablet Take 30mg (20+10) 06/17-06/30; 20mg (20) 07/01-07/14; 10mg (10) ; 5mg (1/2 of 10) 07/29-08/04 28 Tab 06/16/2017 metoprolol (LOPRESSOR) 25 mg tablet Take 1 Tab by mouth 2 times daily. 60 Tab 3 06/16/2017 documented in this encounter Discharge Disposition Disposition Code Departure Means Destination Home-Health Care Svc documented in this encounter Progress Notes * Desi Villatoro, TISH - 06/16/2017 1657 EDT CM DISCHARGE NOTE: Pt was discharged home with Home Health Services. D/C Summary was faxed to his Health Care Technician at Dr. Mccallum's office. Desi Villatoro RN #[id number] * Tej Casanova MD - 06/15/2017 0816 EDT Cardiology Progress note Service Date: 06/15/2017 Admit Date: 06/12/2017 17:51 Reason for Admission: 66 y.o. male admitted with a chief complaint of dyspnea/orthopnea and now with a principal diagnosis of restrictive pericarditis. Events/ Procedures in the last 24 Hours: - naeo Subjective/Objective Subjective No complaints this morning, still unable to lie flat on the bed. denies chest pain, arm/jaw pain, palpitations, dizziness, syncope, near syncope or swelling. Review of Systems A ten point review of systems was performed. Pertinent positives are listed above in HPI, all others are negative. Objective Vital Signs Patient Vitals for [...] -- 1.4* 2.0 1.7 Coags: Recent Labs 06/13/17 0608 PROTIME 14.0* [...] pericarditis possibly causing heart failure with fluid retention. Tamponade unlikely. - Colchicine 0.6mg BID - Prednisone 40mg daily with taper in near future - STRINGED INSTRUMENT REPAIRER torsemide 40mg daily Hypokalemia/Hypomagnesemia -replete as needed Pleural Effusions: Associated with worsening dyspnea and orthopnea. S/P thoracentesis with evidenceof exudative effusion (LDH>2/3 upper limit normal). Uncertain etiology as I would expect transudative effusion 2/2 pericarditis - Monitor for concerns of recurrence with decreased breath sounds ?? Tachycardia: irregular pacing with intermittent tachycardia. Eval of pacemaker appears normal. - Metoprolol 25mg BID Cough: Ongoing for several weeks. Tessalon pearls did not appear to help in past. Due to chronicity, influenza not likely - Dextromethorphan PRN VTE Prophylaxis Pharmacologic Prophylaxis: Heparin 5000 units SQ Tid Discharge Plan Uncertain at this time Tej Casanova MD 06/15/2017 8:16 Associated attestation - Bg Atwood MD - 06/15/2017 1527 EDT I have seen and evaluated the patient. I agree with the assessment and plan as outlined above by Dr. Casanova. He seems to be doing better on the steroids. I encouraged ambulation. We will likely cancel the right heart catheterization for tomorrow. BG ATWOOD MD Attending Electric Fork Operator [facility] * Michael Pratt MD - 06/14/2017 0646 EDT Cardiology Progress note Service Date: 06/14/2017 Admit Date: 06/12/2017 17:51 Reason for Admission: 66 y.o. male admitted with a chief complaint of dyspnea/orthopnea and now with a principal diagnosis of restrictive pericarditis. Events/ Procedures in the last 24 Hours: - CT PE showed no PE - s/p L thoracentesis showing exudative fluid Subjective/Objective Subjective Feels OK this morning. No worsening or improvement in symptoms overnight. Slept in chair overnight.Continues to feel dyspneic with lying flat which prevented him from having L heart cath yesterday. Denies fever, chills, chest pain, nausea, vomiting, abnormal bowel/bladder function. Still has coughwith lower abdominal pain when coughing. Notes that his cough has been ongoing for a couple weeks. Review of Systems A ten point review of systems was performed. Pertinent positives are listed above in HPI, all others are negative. Objective Vital Signs Patient Vitals for [...] PLT 206 223 243 BMP: Recent Labs 06/12/17183606/13/17 0608 06/14/17 0532 CREATININE 0.54* 0.58* 0.60* [...] pericarditis possibly causing heart failure with fluid retention. Tamponade unlikely. - Colchicine 0.6mg BID - Prednisone 40mg daily with taper in near future - STRINGED INSTRUMENT REPAIRER torsemide 40mg daily Pleural Effusions: Associated with worsening dyspnea and orthopnea. S/P thoracentesis with evidenceof exudative effusion (LDH>2/3 upper limit normal). Uncertain etiology as I would expect transudative effusion 2/2 pericarditis - Monitor for concerns of recurrence with decreased breath sounds ?? Tachycardia: irregular pacing with intermittent tachycardia. Eval of pacemaker appears normal. - Metoprolol 25mg BID Cough: Ongoing for several weeks. Tessalon pearls did not appear to help in past. Due to chronicity, influenza not likely - Dextromethorphan PRN VTE Prophylaxis Pharmacologic Prophylaxis: Heparin 5000 units SQ Tid Discharge Plan Uncertain at this time Michael Pratt MD 06/14/2017 6:46 Associated attestation - Bg Atwood MD - 06/14/2017 1520 EDT I have seen and evaluated the patient. I agree with the assessment and plan as outlined above by Dr. Pratt. Mr Farfan seems to be feeling better s/p thoracentesis and initiation of prednisone. We are treating him for a presumptive diagnosis of subacute effusive-constrictive pericarditis. We were unable to do the right heart catheterization, because he was coughing and could not lie flat. BG ATWOOD MD Attending Electric Fork Operator [facility] * Michael Pratt MD - 06/13/2017 1351 EDT Cardiology Progress note Service Date: 06/13/2017 Admit Date: 06/12/2017 17:51 Reason for Admission: 66 y.o. male admitted with a chief complaint of dyspnea/orthopnea and now with a principal diagnosis of restrictive pericarditis. Events/ Procedures in the last 24 Hours: - Admitted (See H&P) Subjective/Objective Subjective Feels OK this morning. No worsening or improvement in symptoms overnight. Slept in chair overnight.Feels dyspneic with lying flat. Denies fever, chills, chest pain, nausea, vomiting, abnormal bowel/bladder function. Still has cough with lower abdominal pain when coughing. Review of Systems A ten point review of systems was performed. Pertinent positives are listed above in HPI, all others are negative. Objective Vital Signs Patient Vitals for [...] pericarditis possibly causing heart failure with fluid retention. Tamponade unlikely. - Colchicine 0.6mg BID - Start prednisone 40mg daily with taper in near future - Push echo from OSH into our system or repeat echo - STRINGED INSTRUMENT REPAIRER torsemide 40mg daily - Medical management pending [...] this time Michael Pratt MD 06/13/2017 13:52 * Najma Berger RD - 06/13/2017 1326 EDT S/ RD attempted to meet with pt d/t and RN nutrition consult d/t unintended wt loss/decreased appetite. Pt currently not in room (in lab support tech). O/ wt-100.7 kg Prior wt-~108 kg(05/24/17) Ht-180.3 [...] to d/c. Magalis Berger RD, CD X/cover #[id number] * Ameena Teixeira - 06/13/2017 1153 EDT Initial Case Management/Social Work Assessment and Discharge Plan/Readmission Risk Assessment REASON FOR ADMISSION: Heart failure ([facility]) Patient understands reason for admission: Yes PATIENT CONTACT INFO VERIFIED: Yes PATIENT ADDRESS VERIFIED: Yes (David is staying with his son Mo temporarily in [place]. He did not know the address) LIVING ARRANGEMENTS AND ACCESSIBILITY ISSUES: Living Arrangements: Family members Levels: 1 Stairs to enter: 2 Handicap access: None Bathroom located on bedroom level?: Yes What in home social supports are available to the patient? Family member(s) Is 24/ care available? NA ADVANCED DIRECTIVES, POA &/or [...] his sons have been driving him) CULTURAL, CHEONDOISM and/or LANGUAGE factors affecting health [...] illegal drug or used a prescription medication fornon-medical reasons?: Never Intervention in place/initiated?: No, not indicated FUNCTIONAL STATUS: Activities patient requires assistance: None Assistive Device: Cane, None (He has a cane that he uses when his knee is hurting) COMMUNITY RESOURCES/SUPPORTS: Primary Care Provider: Katia Mccallum PCP Verified: Yes Specialists: Cardiology Type of Home Health Services: Nurse visit DME Provider: Pharmacy: [facility] - [address] - [place], [place] - [address] [facility] [phone] [facility] - [place], [place] - [address] [address] Home Health: [facility] Other: Other (enter in comments) (he has a child care giver through [facility]) POST HOSPITAL TRANSITION PLAN: Likely Dc to his son's house with continuation of RN services. Hereports that he has only been drinking 1-2 beers/day. He denied any concern over his ETOH use. AMEENA TEIXEIRA 06/13/2017 11:59 For Ivelisse Rueda * Desi Villatoro, RN - 06/13/2017 0996 EDT 06/13: Received a call from Yessica Card at [facility]. She is the patient's Health Care Technician. I've faxed patient's H&P to her and will keep her up to date on patient's progress and projected d/c. Yessica Card, Health Care Technician P: [phone] ext [phone] F: [phone] Desi Villatoro RN [facility] #[id number] * Renetta Martini, TISH - 06/13/2017 3239 EDT Pt received from M5 to angio 22 at 815 for B/L Thoracentesis. Pt name and verified using armband and verbally. Patients allergies, medications and lab results reviewed. IV site checked for patency. Sandro Ireland PA-C in room for consent Pt educated on procedure, pt verbalized understanding. Pt in sitting position. VS assessed. Pre u/s performed and no fluid on the right, only performing left thoracentesis. Time out done with all staff in room(AMB/KMG/TK) prior to start of procedure at 825. Sterile prep of left posterior chest with chloraprep by TK MINGO in the usual sterile fashion in compliance with manufacturers recommendation. Pt monitored through out procedure. 700ml of serosanginous fluid drained from left posterior chest by TK. See MD note for procedure details. Pt tolerated procedure well. Report given to M5 RN. Pt transferred back to in stable condition with RN. documented in this encounter H&P Notes * Denilson Shannon MD - 06/12/2017 3753 EDT Cardiology Admitting H&P Admit Date: 06/12/2017 [...] exertional dyspnea found to have??hypertensive urgency and asymptomaticcomplete heart block with a rate in the 30s. ??He underwent a pacemaker on 05/02/17 for complete heart block, Lyme antibody negative. ??During that admission he was started on amlodipine and chlorthalidone. ? He was again admitted on 05/20 with orthopnea and cough, and CT chest showed pericardial effusion. He underwent pericardiocentesis with 720mL serosanguinous fluid drained and relief in symptoms. Additionally 05/21 his PPM leads were adjusted, and CXR showed good placement. He was initiated on ibuprofen and colchicine for treatment of pericarditis prior to discharge with follow up performed by Dr. Rosenberg in [place] (has now completed 14 days of ibuprofen). After seeing Dr. Rosenberg yesterday and having an echo performed, he was noted to have worsening dyspnea, orthopnea, and increasing pleural effusions. He denies chest pain, diaphoresis, arm/jaw pain, wheezing, nausea/vomiting, change in bowels, or change in urination. He notes an ongoing cough with worsening abdominal pain from coughing so frequently. He was transferred to [facility] for consideration of thoracentesis and medical [...] positives are listed above in HPI, all others are negative. Objective/Physical Exam: VS: No data found. [...] tomorrow (either bedside or IR guided) - STRINGED INSTRUMENT REPAIRER torsemide 40mg daily - NPO after midnight [...] Addendum 66 yo man who lives in [place] and follows with Dr. Rosenberg with a [...] and colchicine for pericarditis. Patient saw Dr. Rosenberg in clinic yesterday and reported he had progressive dyspnea, coughing. Echo was done which showed large bilateral pleural effusions and Dr. Rosenberg arranged for patient to have a direct admission with tentative plan for bilateral thoracentesis. Blood pressure 110/75, temperature 36.8 ??C (98.2 ??F), temperature source Tympanic, resp. rate 22,height 180.3 cm (71), weight 100.7 kg (222 [...] see in epiphany from recently but original pacer note had upper limit of pacing of 120? Possibly occasionally not conducting as above upper rate? Could consider some form of wenkebach phenomena due to a lead problem CXR - with small-mod pleural effusions per my read. Per radiology slight improvement in LLL aeration from prior / left retrocardiac opacity from prior (on 05/26). A&P - Somewhat concerning to me that patient has what looks like sinus tach to 130s. However Bpis stable and just did have echo so suspicion for tamponade is low. Not clear to me that patient just has symptomatic pleural effusions from prior tamponade given not very impressive on CXR. Also reportedly echo looked okay other than pleural effusions. 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 Does have asymmetric edemaso PE possible. - per son has been drinking more recently, would place patient on observational CIWA protocol - I added on NT pro BNP - interrogate PPM tomorrow AM (will need to call EP RN) - would get d-dimer and duplex of legs overnight - team attempted to obtain echo from [facility] however unable to do so until AM - if no other etiology found consider switching to colchicine + prednisone - blood cultures Denilson Shannon MD Production Estimator Pager [phone] 06/12/2017 21:56 Associated attestation - Bg Atwood MD - 06/13/2017 0906 EDT I have seen and evaluated the patient. I agree with the assessment and plan as outlined above by Dr. Halevy. I am concerned that Mr. Farfan has constrictive physiology given his recent acute pericarditis and volume overload at this point. I need to review his echocardiogram, and we are going to obtain an invasive hemodynamic assessment today (right heart catheterization). He is going to have a thoracentesis as well. BG ATWOOD MD Attending Electric Fork Operator [facility] documented in this encounter Procedure Notes * Randy Ireland PA-C - 06/13/2017 0839 EDT IR Procedure Note Procedure: Requested U/S guided bilateral thoracentesis Date Performed: 06/13/2017 Radiologist/Asbestos Siding Installer(s):MD Andrea /MINGO Ireland Sedation/Anesthesia: local Time Out: [...] 8:40 documented in this encounter Miscellaneous Notes * Plan of Care - Omayra Farley RN - 06/16/2017 1523 EDT Problem: Daily Care Plan Goals Goal: Care Plan Documentation Data: Pt admitted with increased SOB, cough, pleural effusion and restrictive pericarditis. VSS. Tele - V - paced. LSC, RA. Denies SOB. Ambulating in hallway independently without difficulty. Discharge home orders received. Action: [facility] called and report given. They are familiar with this pt. Tele and PIV removed. Pt dressed independently. Discharge paperwork reviewed with pt. Verbalizes good understanding. Response: awaiting ride for discharge home. Omayra Farley RN 06/16/2017 15:21 * Plan of Care - Diamond Manzano RN [...] maintain adequate ventilation will improve Outcome: Ongoing * Plan of Care - Licha Strong RN [...] with patient.Informed pt that he will have [facility] on Friday. R: Pt verbalized understanding of his plan of care. * Plan of Care - Mila Mcallister RN - 06/14/2017 1558 EDT Problem: Daily Care Plan Goals Goal: Care Plan Documentation Outcome: Met This Shift 06/14/17 0736 Care Plan Focus Area of Focus Mobility Goal This Shift ambulate Data: Pleural effusion & Pericarditis. Pt has not complained of pain or SOB. Pt having coughingfits and bringing up thick white sputum. Lungs are diminished with crackles at the bases. Pt is V-paced with HR 80'80-100's. BP 107/67 (BP Cuff Location: Left arm, Patient Position: Sitting) Temp 37.1 ??C (98.8 ??F) Resp 18 Ht 180.3 cm [...] amounts. CTM MILA MCALLISTER RN 06/14/2017 15:51 * Plan of Care - Hailee Cox RN [...] endorses less pain with coughing as the nightcontinued. He slept upright in recliner. Response: Care clustered to promote rest. Continue to assess VS as ordered and monitor intake/output as ordered. Pt verbalized understanding of plan of care. HAILEE Cox RN 06/14/2017 5:32 * Plan of Care - Michelle Godinez RN - 06/13/2017 1029 EDT Problem: High Fall Risk: Goal: Patient [...] room air. Lungs auscultated to have crackles inbilateral bases. HR irregular. Afib with BBB, occasional [...] d/t shortness of breath/difficulty lying flat. MD Pratt aware of hypotension, Demadex held per MD order. Iv Mg repletion this shift. R: Continue to monitor patient for comfort/safety as well as HR/Rhythm and VS. Monitor patient for shifts in fluid balance. Monitor neurovascular status. Continue to reinforce education as appropriate. * Plan of Care - Irena Restrepo - [...] 700 mL drained. Patient off floor for CTScan & PE Study. PRN Acetaminophen offered per order. Response: Patient denies the need for analgesic. Plan for R heart catheter this afternoon. Will continue to monitor. Irena Restrepo 06/13/2017 11:30 * Plan of Care - Ольга Greenwood RN [...] Goals Goal: Care Plan Documentation Outcome: Ongoing 06/12/171954 Care Plan Focus Area of Focus Circulatory Status Goal This Shift vss Data: vss, afebrile. Pt on room air, lungs with crackles, 2+ bilateral edema noted. Pt went down toCXR on tele. Tele shows paced rhythm rate 80-130's when up to bathroom. Action: I & O maintained. Nursing assessment done. Response:continue to monitor. Ольга Greenwood RN 06/13/2017 3:20 * Plan of Care - Michelle Godinez RN - 06/12/2017 1845 EDT Problem: Daily Care Plan Goals Goal: Care Plan Documentation Outcome: Ongoing 06/12/17 1807 Care Plan Focus Area of Focus Circulatory Status Goal This Shift vss D: Patient admitted for CHF exacerbation from home accompanied by sons at bedside. Alert, oriented,pleasant. Denies pain/shortness of breath. Strong harsh cough present. Patient reports productive of thick sometimes green sputum. Lungs auscultated to have crackles throughout. HR irregular. Underlying afib per monitor with BBB and occasional Vpacing. VSS. 2+ edema to bilateral lower extremities noted. Recent pacemaker site to L side CDI with some old drainage noted. A: Patient oriented to room/call garza system. Admission database completed. wool merchant applied. Plan of care reviewed to include sodium restriction and fluid monitoring. Patient verbalizes understanding. Sons at bedside very concerned with care, trying to answer many questions for patient. Emotional support and education provided as appropriate. R:continue to monitor patient heart rate/rhythm. Monitor patient for shifts in fluid balance as well as respiratory status. Provide education and reinforce teaching as appropriate. documented in this encounter Plan of Treatment Scheduled Referrals Name Type Priority Associated Diagnoses Orde r Schedule AMB CONS/FOLLOW UP HOME HEALTH SERVICES Outpatient Referral Routine Heart failure, unspecified HF chronicity, unspecified heart failure type (HCC-CMS) Subacute effusive constrictive pericarditis Ordered: 06/16/2017 AMB CONS/FOLLOW UP PRIMARY CARE PHYSICIAN Outpatient Referral Routine Heart failure, unspecified HF chronicity, unspecified heart failure type (HCC-CMS) Subacute effusive constrictive pericarditis Ordered: 06/16/2017 AMB CONS/FOLLOW UP CARDIOLOGY Outpatient Referral Routine Heart failure, unspecified HF chronicity, unspecified heart failure type (HCC-CMS) Subacute effusive constrictive pericarditis Ordered: 06/16/2017 documented as of this encounter Procedures Procedure Name Priority Date/Time Associated Diagnosis Comments ECG REPORT - SCANNED 06/29/2017 16:01 EDT IMPLANT RECORD - SCANNED 06/19/2017 14:15 EDT ECG REPORT - SCANNED 06/19/2017 14:15 EDT COMPLETE BLOOD COUNT Routine 06/16/2017 5:39 EDT MAGNESIUM Routine 06/16/2017 5:39 EDT CREATININE Routine 06/16/2017 5:39 EDT ELECTROLYTES Routine 06/16/2017 5:39 EDT COMPLETE BLOOD COUNT Routine 06/15/2017 5:31 EDT MAGNESIUM Routine 06/15/2017 5:31 EDT CREATININE Routine 06/15/2017 5:31 EDT ELECTROLYTES Routine 06/15/2017 5:31 EDT INPATIENT ADD-ON Routine 06/14/2017 8:00 EDT DIFFERENTIAL Routine 06/14/2017 5:32 EDT COMPLETE BLOOD COUNT Routine 06/14/2017 5:32 EDT MAGNESIUM Routine 06/14/2017 5:32 EDT CREATININE Routine 06/14/2017 5:32 EDT ELECTROLYTES Routine 06/14/2017 5:32 EDT INPATIENT ADD-ON Routine 06/13/2017 15:0 0 EDT INPATIENT ADD-ON STAT 06/13/2017 15:[address] CHEST (PE) PROTOCOL W CONTRAST Routine 06/13/2017 10:41 EDT RAD US DOPPLER LOWER EXTREMITY VENOUS BILATERAL Routine 06/13/2017 10:20 EDT IR THORACENTESIS Routine 06/13/2017 8:45 EDT HEMATOCRIT, BODY FLUID Routine 8 8:26 EDT PH, PLEURAL FLUID Routine 06/13/2017 8:2 6 EDT BACTERIAL CULTURE/SMEAR, FLUID Routine 06/13/2017 8:26 EDT FLUID DIFFERENTIAL Routine 06/13/2017 8: 26 EDT FLUID CELL COUNT Routine 06/13/2017 8:26 EDT TOTAL PROTEIN, FLUID Routine 06/13/2017 8:26 EDT LDH, FLUID Routine 06/13/2017 8:26 EDT GLUCOSE, FLUID Routine 06/13/2017 8:26 EDT CREATININE, FLUID Routine 06/13/2017 8:2 6 EDT PROTIME Routine 06/13/2017 6:08 EDT COMPLETE BLOOD COUNT Routine 06/13/2017 6:08 EDT PROTEIN, TOTAL Routine 06/13/2017 6:08 EDT MAGNESIUM Routine 06/13/2017 6:08 EDT LDH Routine 06/13/2017 6:08 EDT CREATININE Routine 06/13/2017 6:08 EDT ELECTROLYTES Routine 06/13/2017 6:08 EDT BACTERIAL CULTURE, BLOOD Routine 06/12/2017 22:47 EDT BACTERIAL CULTURE, BLOOD Routine 06/12/2017 22:40 EDT D-DIMER Routine 06/12/2017 22:40 EDT INPATIENT ADD-ON Routine 06/12/2017 21:3 0 EDT CHEST PA AND LATERAL Routine 06/12/2017 20:56 EDT INPATIENT ADD-ON Routine 06/12/2017 19:2 0 EDT TROPONIN I Routine 06/12/2017 18:37 EDT COMPLETE BLOOD COUNT Routine 06/12/2017 18:37 EDT HIGH SENSITIVITY C-REACTIVE PROTEIN (CARDIOVASCULAR DISEASE) Routine 06/12/2017 18:37 EDT BUN Routine 06/12/2017 18:37 EDT NT PRO BNP Routine 06/12/2017 18:37 EDT CREATININE Routine 06/12/2017 18:37 EDT ELECTROLYTES Routine 06/12/2017 18:37 EDT EKG 12-LEAD Routine 06/12/2017 18:27 EDT documented in this encounter Results * ECG REPORT - SCANNED (06/29/2017 16:01 EDT) 06/29/2017 16:0 1 EDT Scan 2 Cloth Shrinking Supervisor PROCEDURE/MINOR VELMA GICAL ORDERABLES * IMPLANT RECORD - SCANNED (06/19/2017 14:15 EDT) 06/19/2017 14:1 5 EDT Scan 2 Cloth Shrinking Supervisor PROCEDURE/MINOR VELMA GICAL ORDERABLES * ECG REPORT - SCANNED (06/19/2017 14:15 EDT) 06/19/2017 14:1 5 EDT Scan 2 Cloth Shrinking Supervisor PROCEDURE/MINOR VELMA GICAL ORDERABLES * MAGNESIUM (06/16/2017 5:39 EDT) Magnesium 1.9 1.7 - 2.8 mg/dl 06/16/2017 6:48 EDT [facility] Blood specimen (specimen) BLOOD SPECIMEN / Unknown 06/16/2017 5:39 EDT 06/16/2017 6:15 EDT Michael Pratt MD CHEMISTRY & BLOOD GA S ORDERABLES [facility] [address] [place] [address] * (ABNORMAL) ELECTROLYTES (06/16/2017 5:39 EDT) Sodium 133(L) 136 - 145 mEq/L 06/16/2017 6:48 EDT [facility] Potassium 3.7 3.5 - 5.0 mEq/L 06/16/2017 6:48 [facility] Chloride 90(L) 96 - 110 mEq/L 06/16/2017 6:48 [facility] CO2 33(H) 22 - 32 mEq/L 06/16/2017 6:48 [facility] Blood specimen (specimen) BLOOD SPECIMEN / Unknown 06/16/2017 5:39 EDT 06/16/2017 6:15 EDT Michael Pratt MD CHEMISTRY & BLOOD GA S ORDERABLES Performing Organization Address City/State/[facility] Co de Phone Number [facility] [address] [place] [address] * (ABNORMAL) HEMAGRAM (06/16/2017 5:39 EDT) WBC 10.81(H) 4.0 - 10.4 K/cmm 06/16/2017 6:28 [facility] RBC 3.83(L) 4.36 - 5.78 M/cmm 06/16/2017 6:28 [facility] Hemoglobin 12.4(L) 13.8 - 17.3 gm/dl 06/16/2017 6:28 [facility] HCT 35.6(L) 39.5 - 50.2 % 06/16/2017 6:28 [facility] MCV 93 81 - 95 fl 06/16/2017 6:28 [facility] MCH 32.4 27.6 - 33.0 pg 06/16/2017 6:28 [facility] MCHC 34.8 32.8 - 36.4 gm/dl 06/16/2017 6:28 [facility] RDW-CV 11.9 <14.2 % 06/16/2017 6:28 [facility] RDW-SD 40.8 <46.0 fl 06/16/2017 6:28 [facility] PLT 204 141 - 377 K/cmm 06/16/2017 6:28 [facility] MPV 12.4 9.5 - 12.7 fl 06/16/2017 6:28 EDT [facility] Blood specimen (specimen) BLOOD SPECIMEN / Unknown 06/16/2017 5:39 EDT 06/16/2017 6:15 EDT Michael Pratt MD HEMATOLOGY & PF4 ORD ERABLES Performing Organization Address City/[facility]/ZIP Co de Phone Number [facility] [address] [place] [address] * CREATININE (06/16/2017 5:39 EDT) Creatinine 0.67 0.66 - 1.25 mg/dl 06/16/2017 6:48 EDT [facility] GFR, Calculated 100 >60 ml/min/1.7 3m2 06/16/2017 6:48 EDT [facility] Comment: eGFR calculated using CKD-EPI equation for non Americans. Multiply eGFR by 1.16 for Americans. Blood specimen (specimen) BLOOD SPECIMEN / Unknown 06/16/2017 5:39 EDT 06/16/2017 6:15 EDT Michael Pratt MD CHEMISTRY & BLOOD GA S ORDERABLES Performing Organization Address [facility] Co de Phone Number [facility] [address] [place] [address] * MAGNESIUM (06/15/2017 5:31 EDT) Magnesium 1.7 1.7 - 2.8 mg/dl 06/15/2017 6:24 EDT [facility] Blood specimen (specimen) BLOOD SPECIMEN / Unknown 06/15/2017 5:31 EDT 06/15/2017 5:48 EDT Michael Pratt MD CHEMISTRY & BLOOD GA S ORDERABLES Performing Organization Address City/[facility]/ZIP Co de Phone Number [facility] [address] [place] [address] * (ABNORMAL) ELECTROLYTES (06/15/2017 5:31 EDT) Pathologist [facility] Sodium 133(L) 136 - 145 mEq/L 06/15/2017 6:24 EDT [facility] Potassium 3.4(L) 3.5 - 5.0 mEq/L 06/15/2017 6:24 EDT [facility] Chloride 90(L) 96 - 110 mEq/L 06/15/2017 6:24 EDT [facility] CO2 34(H) 22 - 32 mEq/L 06/15/2017 6:24 EDT [facility] Blood specimen (specimen) BLOOD SPECIMEN / Unknown 06/15/2017 5:31 EDT 06/15/2017 5:48 EDT Michael Pratt MD CHEMISTRY & BLOOD GA S ORDERABLES Performing Organization Address City/State/[facility] Co de Phone Number [facility] [address] [place] [address] * (ABNORMAL) HEMAGRAM (06/15/2017 5:31 EDT) Pathologist [facility] WBC 11.63(H) 4.0 - 10.4 K/cmm 06/15/2017 5:58 [facility] RBC 3.51(L) 4.36 - 5.78 M/cmm 06/15/2017 5:58 [facility] Hemoglobin 11.4(L) 13.8 - 17.3 gm/dl 06/15/2017 5:58 [facility] HCT 33.1(L) 39.5 - 50.2 % 06/15/2017 5:58 [facility] MCV 94 81 - 95 fl 06/15/2017 5:58 [facility] MCH 32.5 27.6 - 33.0 pg 06/15/2017 5:58 [facility] MCHC 34.4 32.8 - 36.4 gm/dl 06/15/2017 5:58 [facility] RDW-CV 12.0 <14.2 % 06/15/2017 5:58 [facility] RDW-SD 41.4 <46.0 fl 06/15/2017 5:58 EDT [facility] PLT 240 141 - 377 K/cmm 06/15/2017 5:58 EDT [facility] MPV 11.1 9.5 - 12.7 fl 06/15/2017 5:58 EDT [facility] Blood specimen (specimen) BLOOD SPECIMEN / Unknown 06/15/2017 5:31 EDT 06/15/2017 5:48 EDT Michael Pratt MD HEMATOLOGY & PF4 ORD ERABLES Performing Organization Address City/[facility] Co de Phone Number [facility] [address] [place] [address] * (ABNORMAL) CREATININE (06/15/2017 5:31 EDT) Creatinine 0.65(L) 0.66 - 1.25 mg/dl 06/15/2017 6:24 EDT [facility] GFR, Calculated 101 >60 ml/min/1.7 3m2 06/15/2017 6:24 EDT [facility] Comment: eGFR calculated using CKD-EPI equation for non Americans. Multiply eGFR by 1.16 for Americans. Blood specimen (specimen) BLOOD SPECIMEN / Unknown 06/15/2017 5:31 EDT 06/15/2017 5:48 EDT Michael Pratt MD CHEMISTRY & BLOOD GA S ORDERABLES Performing Organization Address City/[facility] Co de Phone Number [facility] [address] [place] [address] * INPATIENT ADD-ON (06/14/2017 8:00 EDT) Tests to be added PLEASE ADD ON DIFFERENTIAL TO CBC 06/14/2017 7:59 T [facility] Number for problems M5 06/14/2017 8:01 T [facility] Accession number [id number] 06/14/2017 8:01 EDT [facility] TOPOGRAPHY UNKNOWN / Unknown 06/14/2017 8:00 EDT 06/14/2017 8:01 EDT Catherine Walker MD HEMATOLOGY & PF4 ORD ERABLES Performing Organization Address City/State/[facility] Co de Phone Number [facility] [address] [place] [address] * (ABNORMAL) DIFFERENTIAL (06/14/2017 5:32 EDT) % Neutrophils 72.2 % 06/14/2017 8:47 EDT [facility] % Lymphocytes 14.9 % 06/14/2017 8:47 EDT [facility] % Monocytes 12.1 % 06/14/2017 8:47 T [facility] % Eosinophils 0.1 % 06/14/2017 8:47 [facility] % Basophils 0.2 % 06/14/2017 8:47 [facility] % Immature Grans 0.5 % 06/14/2017 8:47 [facility] ABS Neutrophils 8.96(H) 2.20 - 8.85 K/cmm 06/14/2017 8:47 EDT [facility] ABS Lymphs 1.85 1.09 - 3.30 K/cmm 06/14/2017 8:47 [facility] ABS Monocytes 1.50(H) 0.1 - 0.8 K/cmm 06/14/2017 8:47 [facility] ABS Eosinophils 0.01(L) 0.03 - 0.61 K/cmm 06/14/2017 8:47 T [facility] ABS Basophils 0.02 0.01 - 0.11 K/cmm 06/14/2017 8:47 EDT [facility] ABS Immature Grans 0.06 0 - 0.06 K/cmm 06/14/2017 8:47 [facility] Type of Diff: Automated 06/14/2017 8:47 [facility] BLOOD SPECIMEN / Unknown 06/14/2017 5:32 EDT 06/14/2017 5:53 EDT Michael Pratt MD HEMATOLOGY & PF4 ORD ERABLES [facility] [address] [place] [address] * MAGNESIUM (06/14/2017 5:32 EDT) Pathologist [facility] Magnesium 2.0 1.7 - 2.8 mg/dl 06/14/2017 6:25 EDT [facility] Blood specimen (specimen) BLOOD SPECIMEN / Unknown 06/14/2017 5:32 EDT 06/14/2017 5:53 EDT Michael Pratt MD CHEMISTRY & BLOOD GA S ORDERABLES Performing Organization Address [facility] Co de Phone Number [facility] [address] [place] [address] * (ABNORMAL) ELECTROLYTES (06/14/2017 5:32 EDT) [facility] Sodium 133(L) 136 - 145 mEq/L 06/14/2017 6:25 EDT [facility] Potassium 3.6 3.5 - 5.0 mEq/L 06/14/2017 6:25 EDT [facility] Chloride 91(L) 96 - 110 mEq/L 06/14/2017 6:25 EDT [facility] CO2 31 22 - 32 mEq/L 06/14/2017 6:25 EDT [facility] Blood specimen (specimen) BLOOD SPECIMEN / Unknown 06/14/2017 5:32 EDT 06/14/2017 5:53 EDT Michael Pratt MD CHEMISTRY & BLOOD GA S ORDERABLES Performing Organization Address City/[facility]/ZIP Co de Phone Number [facility] [address] [place] [address] * (ABNORMAL) HEMAGRAM (06/14/2017 5:32 EDT) Pathologist [facility] WBC 12.41(H) 4.0 - 10.4 K/cmm 06/14/2017 6:00 EDT [facility] RBC 3.64(L) 4.36 - 5.78 M/cmm 06/14/2017 6:00 EDT [facility] Hemoglobin 11.9(L) 13.8 - 17.3 gm/dl 06/14/2017 6:00 T [facility] HCT 33.8(L) 39.5 - 50.2 % 06/14/2017 6:00 [facility] MCV 93 81 - 95 fl 06/14/2017 6:00 T [facility] MCH 32.7 27.6 - 33.0 pg 06/14/2017 6:00 EDT [facility] MCHC 35.2 32.8 - 36.4 gm/dl 06/14/2017 6:00 T [facility] RDW-CV 11.9 <14.2 % 06/14/2017 6:00 T [facility] RDW-SD 40.7 <46.0 fl 06/14/2017 6:00 [facility] PLT 243 141 - 377 K/cmm 06/14/2017 6:00 [facility] MPV 11.7 9.5 - 12.7 fl 06/14/2017 6:00 [facility] Blood specimen (specimen) BLOOD SPECIMEN / Unknown 06/14/2017 5:32 EDT 06/14/2017 5:53 EDT Michael Pratt MD HEMATOLOGY & PF4 ORD ERABLES [facility] [address] [place] [address] * (ABNORMAL) CREATININE (06/14/2017 5:32 EDT) Creatinine 0.60(L) 0.66 - 1.25 mg/dl 06/14/2017 6:25 EDT [facility] GFR, Calculated 105 >60 ml/min/1.7 3m2 06/14/2017 6:25 T [facility] Comment: eGFR calculated using CKD-EPI equation for non Americans. Multiply eGFR by 1.16 for Americans. Blood specimen (specimen) BLOOD SPECIMEN / Unknown 06/14/2017 5:32 EDT 06/14/2017 5:53 EDT Michael Pratt MD CHEMISTRY & BLOOD GA S ORDERABLES Performing Organization Address City/[facility]/ZIP Co de Phone Number [facility] [address] [place] [address] * INPATIENT ADD-ON (06/13/2017 15:00 EDT) Tests to be added PLEASE ADD ON HEMATOCRIT TO PLEURAL FLUID OBTAINED TODAY (06/13). THANK YOU 06/13/2017 14:56 EDT [facility] Number for problems [id number] 06/13/2017 15:05 EDT [facility] Accession number [id number] 06/13/2017 15:15 EDT [facility] Comment:Corrected on 06/13 A T 1515: Previously reported as [id number] TOPOGRAPHY UNKNOWN / Unknown 06/13/2017 15:00 EDT 06/13/2017 15:02 EDT Catherine Walker MD HEMATOLOGY & PF4 ORD ERABLES Performing Organization Address [facility]/ZIP Co de Phone Number [facility] [address] [place] [address] * INPATIENT ADD-ON (06/13/2017 15:00 EDT) Tests to be added TOTAL PROTEIN,LD H 06/13/2017 14:55 EDT [facility] Number for problems [id number] 06/13/2017 15:01 EDT [facility] Accession number [id number] 06/13/2017 15:02 EDT [facility] Comment:Corrected on 06/13 A T 1502: Previously reported as [id number] TOPOGRAPHY UNKNOWN / Unknown 06/13/2017 15:00 EDT 06/13/2017 15:01 EDT Catherine Walker MD HEMATOLOGY & PF4 ORD ERABLES Performing Organization Address City/[facility]/ZIP Co de Phone Number [facility] [address] [place] [address] * CT CHEST (PE) PROTOCOL W CONTRAST (06/13/2017 10:41 EDT) Anatomical Region Laterality Modality Other 06/13/2017 10:4 1 EDT 06/13/2017 11:23 EDT Narrative 06/13/2017 11:23 EDT CTA CHEST W CONTRAST (PE) PROTOCOL ??06/13/2017 10:41 AM Clinical History/Comments: tachycardia, shortness of breath w/ unilateral lower extremity edema. evaluate for PE Technique: A contrast-enhanced helical CT acquisition of the chest from apices through the lung bases was performed with a reconstructed slice thickness of 0.9 mm with overlapping 0.45 mm intervals following the intravenous administration of 75-100 cc of 350-370 mg% nonionic contrast injected at a rate of 4-5 cc/second. ??A small test bolus was used for image acquisition. Scans were reviewed on a dedicated PACS workstation for analysis. The radiologist reviewed and/or adjusted the images for the 3D/MIP rendering on an independent workstation, as necessary, prior to interpretation. Exam Description: CTA of the chest. Comparison: Outside CT 05/20/2017. Findings: Opacification of the pulmonary vasculature is good No acute or chronic emboli are seen within the pulmonary arterial vasculature. Lower neck: Significant abnormality Mediastinum: ??Central pulmonary artery enlargement is consistent with pulmonary hypertension. The ascending aorta is mildly dilated. The aortic valve leaflets are mildly calcified. The coronary arteries and mitral annulus are heavily calcified. Pacemaker leads are present in the region of the sinoatrial node and right ventricular apex. The pericardial effusion present on May 20 has resolved. There is no pericardial calcification. No enlarged lymph nodes are present in the mediastinum or alvino. Lungs: ??Scarring in the right base is likely related to the pleural process. Groundglass nodules and tree-in-bud opacities in the anterobasal segment of the right lower lobe could reflect an acute infection. Mild centrilobular emphysema is present in the upper lobes. Airspace consolidation adjacent to the left effusion is likely passive atelectasis. The airways are diffusely thickened with scattered secretions. No suspicious nodules are present. Pleura: Diffuse calcification of the pleura on the right could reflect either old hemothorax or previous empyema. The left pleural effusion has decreased in size and is now tiny. No pleural fluid is seen on the right.. Upper abdomen (limited to upper abdomen, not optimized for abdominal imaging): No significant abnormality Bones and chest wall: ??Old fractures are present in both clavicles and multiple ribs Impression: 1. ??No evidence of pulmonary embolism. 2. ??Extensive right-sided pleural thickening likely reflects old hemothorax given the multiple old fractures 3. ??Possible new infection in the right middle lobe (this area was obscured by motion artifact on the previous study) 4. ??Coronary atherosclerosis 5. ??Interval resolution of pericardial effusion and decrease of left pleural effusion Procedure Note Umang Dugan MD - 06/13/2017 CTA CHEST W CONTRAST (PE) PROTOCOL 06/13/2017 10:41 AM Clinical History/Comments: tachycardia, shortness of breath w/ unilateral lower extremity edema. evaluate for PE Technique: A contrast-enhanced helical CT acquisition of the chest from apices through the lung bases was performed with a reconstructed slice thickness of 0.9 mm with overlapping 0.45 mm intervals following the intravenous administration of 75-100 cc of 350-370 mg% nonionic contrast injected at a rate of 4-5 cc/second. A small test bolus was used for image acquisition. Scans were reviewed on a dedicated PACS workstation for analysis. The radiologist reviewed and/or adjusted the images for the 3D/MIP rendering on an independent workstation, as necessary, prior to interpretation. Exam Description: CTA of the chest. Comparison: Outside CT 05/20/2017. Findings: Opacification of the pulmonary vasculature is good No acute or chronic emboli are seen within the pulmonary arterial vasculature. Lower neck: Significant abnormality Mediastinum: Central pulmonary artery enlargement is consistent with pulmonary hypertension. The ascending aorta is mildly dilated. The aortic valve leaflets are mildly calcified. The coronary arteries and mitral annulus are heavily calcified. Pacemaker leads are present in the region of the sinoatrial node and right ventricular apex. The pericardial effusion present on May 20 has resolved. There is no pericardial calcification. No enlarged lymph nodes are present in the mediastinum or alvino. Lungs: Scarring in the right base is likely related to the pleural process. Groundglass nodules and tree-in-bud opacities in the anterobasal segment of the right lower lobe could reflect an acute infection. Mild centrilobular emphysema is present in the upper lobes. Airspace consolidation adjacent to the left effusion is likely passive atelectasis. The airways are diffusely thickened with scattered secretions. No suspicious nodules are present. Pleura: Diffuse calcification of the pleura on the right could reflect either old hemothorax or previous empyema. The left pleural effusion has decreased in size and is now tiny. No pleural fluid is seen on the right.. Upper abdomen (limited to upper abdomen, not optimized for abdominal imaging): No significant abnormality Bones and chest wall: Old fractures are present in both clavicles and multiple ribs Impression: 1. No evidence of pulmonary embolism. 2. Extensive right-sided pleural thickening likely reflects old hemothorax given the multiple old fractures 3. Possible new infection in the right middle lobe (this area was obscured by motion artifact on the previous study) 4. Coronary atherosclerosis 5. Interval resolution of pericardial effusion and decrease of left pleural effusion Rahat Aviles MD IMG CT ORDERABLES * RAD US DOPPLER LOWER EXTREMITY VENOUS BILATERAL (06/13/2017 10:20 EDT) Anatomical Region Laterality Modality Other 06/13/2017 10:2 0 EDT 06/13/2017 11:50 EDT Narrative 06/13/2017 11:50 EDT RAD US DOPPLER LOWER EXTREMITY VENOUS BILATERAL ??06/13/2017 10:20 AM Signs and Symptoms/Comments: ?? lower extremity edema, hypoxemia and concern for PE. r/o DVT Comparison: None available. Technique: Doppler evaluation of the deep veins of the bilateral lower extremities was performed. Findings: The bilateral external iliac veins, common femoral veins, proximal through distal femoral veins, and the popliteal veins all demonstrate normal Doppler flow, normal respiratory variation, normal augmentation, and normal compression. The peroneal and posterior tibial veins demonstrate normal color Doppler flow bilaterally. Impression: No evidence of deep venous thrombosis in the bilateral lower extremities. Procedure Note Lakhwinder Huang MD - 06/13/2017 RAD US DOPPLER LOWER EXTREMITY VENOUS BILATERAL 06/13/2017 10:20 AM Signs and Symptoms/Comments: lower extremity edema, hypoxemia and concern for PE. r/o DVT Comparison: None available. Technique: Doppler evaluation of the deep veins of the bilateral lower extremities was performed. Findings: The bilateral external iliac veins, common femoral veins, proximal through distal femoral veins, and the popliteal veins all demonstrate normal Doppler flow, normal respiratory variation, normal augmentation, and normal compression. The peroneal and posterior tibial veins demonstrate normal color Doppler flow bilaterally. Impression: No evidence of deep venous thrombosis in the bilateral lower extremities. Rahat Aviles MD IMG US ORDERABLES * IR THORACENTESIS (06/13/2017 8:45 EDT) Anatomical Region Laterality Modality Other 06/13/2017 8:45 EDT 06/13/2017 10:51 EDT Narrative 06/13/2017 10:51 EDT IR THORACENTESIS ??06/13/2017 8:45 AM Clinical History/Comments: pleural effusions Informed consent was obtained from the patient following a detailed explanation of the risks and benefits of the procedure as well as alternative diagnostic and therapeutic methods including no further procedures. Findings: An ultrasound examination of the bilateral chest demonstrates the presence of a medium-sized left pleural effusion. The right pleural space shows minimal pleural fluid. Using sterile technique and under local anesthesia, a 8-Persian thoracentesis catheter was advanced into the left pleural space and 700 cc clear light red fluid was removed. ??The pleural fluid was withdrawn and sent to the lab for analysis. The patient tolerated the procedure well without complication. Francesco Dawn., was directly supervised in the performance of this procedure. Impression: Successful ultrasound-guided left thoracentesis yielding 700cc of clear light red fluid which was sent to the lab for analysis. Procedure Note William Mendez MD - 06/13/2017 IR THORACENTESIS 06/13/2017 8:45 AM Clinical History/Comments: pleural effusions Informed consent was obtained from the patient following a detailed explanation of the risks and benefits of the procedure as well as alternative diagnostic and therapeutic methods including no further procedures. Findings: An ultrasound examination of the bilateral chest demonstrates the presence of a medium-sized left pleural effusion. The right pleural space shows minimal pleural fluid. Using sterile technique and under local anesthesia, a 8-Persian thoracentesis catheter was advanced into the left pleural space and 700 cc clear light red fluid was removed. The pleural fluid was withdrawn and sent to the lab for analysis. The patient tolerated the procedure well without complication. Randy Kopecky, P.A., was directly supervised in the performance of this procedure. Impression: Successful ultrasound-guided left thoracentesis yielding 700cc of clear light red fluid which was sent to the lab for analysis. Michael Pratt MD IMG IR ORDERABLES * HEMATOCRIT, BODY FLUID (06/13/2017 8:26 EDT) Hematocrit,Bod y Fld <3.0 % 06/13/2017 16:01 EDT [facility] PLEURAL FLUID SPECIMEN / Unknown 06/13/2017 8:26 EDT 06/13/2017 8:49 EDT Michael Pratt MD GEN LAB UNIT COLLECT ORDERABLES Performing Organization Address City/[facility]/ZIP Co de Phone Number [facility] [address] [place] [address] * FLUID DIFFERENTIAL (06/13/2017 8:26 EDT) Neutrophils, Fluid 33 % 06/13/2017 12:15 EDT [facility] Lymphocytes, Fluid 50 % 06/13/2017 12:15 T [facility] [place]/Macro, Fluid 12 % 06/13/2017 12:15 T [facility] Mesothelial 5 % 06/13/2017 12:15 T [facility] Fluid Comment Rev'd by Pathologist 06/13/2017 12:15 T [facility] PLEURAL FLUID SPECIMEN / Unknown 06/13/2017 8:26 EDT 06/13/2017 8:49 EDT Michael Pratt MD GEN LAB UNIT COLLECT ORDERABLES Performing Organization Address City/[facility]/ZIP Co de Phone Number [facility] [address] [place] [address] * PH, PLEURAL FLUID (06/13/2017 8:26 EDT) Pleural Fluid pH 7.42 06/14/19 18 9:12 EDT [facility] Comment: Reference range: Pleural fluid Exudate: 7.30-7.45 Transudate: 7.40-7.55 A pleural fluid pH <7.30 is generally associated with a complicated parapneumonic effusion, empyema, connective tissue disease of the pleura or malignant effusion. PLEURAL FLUID SPECIMEN / Unknown 06/13/2017 8:26 EDT 06/13/2017 9:00 EDT Michael Pratt MD GEN LAB UNIT COLLECT ORDERABLES Performing Organization Address City/[facility]/ZIP Co de Phone Number [facility] [address] [place] [address] * BACTERIAL CULTURE/SMEAR, FLUID (06/13/2017 8:26 EDT) Gram Smear Result Polys present 06/13/2017 10:07 EDT [facility] Gram Smear Result No bacteria seen 06/13/2017 10:07 EDT [facility] Result No growth 06/15/2017 7:29 EDT [facility] FOSMIC PLEURAL FLUID SPECIMEN / Unknown 06/13/2017 8:26 EDT 06/13/2017 9:19 EDT Comment:Left Michael Pratt MD MICROBIOLOGY - GENER AL ORDERABLES Performing Organization Address [facility] de Phone Number [facility] [address] [place] [address] * FLUID CELL COUNT (06/13/2017 8:26 EDT) RBC, Fluid 44,000 /cmm 06/13/2017 10:31 EDT [facility] Nucleated Cells 11,202 /cmm 06/13/2017 10:31 EDT [facility] Fluid Comment MODERATELY BLOODY, MODERATELY CLOUDY 06/13/2017 10:31 EDT [facility] Body fluid specimen (specimen) PLEURAL FLUID SPECIMEN / Unknown 06/13/2017 8:26 EDT 06/13/2017 8:49 EDT Michael Pratt MD GEN LAB UNIT COLLECT ORDERABLES Performing Organization Address City/[facility] Co de Phone Number [facility] [address] [place] [address] * TOTAL PROTEIN, FLUID (06/13/2017 8:26 EDT) Protein, Fluid 5.2 g/dl 06/13/2017 10:18 EDT [facility] Comment: Reference Range: Pleural fluid specimen (specimen) Exudate > 3.0 g/dl Pleural fluid specimen (specimen) Transudate <3.0 g/dl Peritoneal fluid sample (specimen) Serum ascites to albumin gradient (SAGG) superior to total protein content in differentiating causes of effusion. Pleural fluid specimen (specimen) [facility] PLEURAL FLUID SPECIMEN / Unknown 06/13/2017 8:26 EDT 06/13/2017 8:51 EDT Michael Pratt MD GEN LAB UNIT COLLECT ORDERABLES Performing Organization Address City/[facility] Co de Phone Number [facility] [address] [place] [address] * LDH, FLUID (06/13/2017 8:26 EDT) LDH, Fluid 654 U/L 06/13/2017 10:18 EDT [facility] Comment: Pleural fluid specimen (specimen) Reference Range: Suggestive of exudate if fluid cholesterol is > 45 mg/dl or fluid LDH is greater than 0.45 times the upper limit of normal serum LDH levels. Peritoneal fluid sample (specimen) No reference range available Pleural fluid specimen (specimen) [facility] PLEURAL FLUID SPECIMEN / Unknown 06/13/2017 8:26 EDT 06/13/2017 8:51 EDT Michael Pratt MD GEN LAB UNIT COLLECT ORDERABLES Performing Organization Address City/[facility]/ZIP Co de Phone Number [facility] [address] [place] [address] * GLUCOSE, FLUID (06/13/2017 8:26 EDT) Glucose, Fluid 88 mg/dl 06/13/2017 10:18 EDT [facility] Comment: Reference Range: Pleural fluid specimen (specimen) Low glucose is accepted as <60 mg/dl or pleural fluid to serum glucose ratio of <0.5. Peritoneal fluid sample (specimen) Low glucose is generally accepted as <50 mg/dl. Pleural fluid specimen (specimen) [facility] PLEURAL FLUID SPECIMEN / Unknown 06/13/2017 8:26 EDT 06/13/2017 8:51 EDT Michael Pratt MD GEN LAB UNIT COLLECT ORDERABLES Performing Organization Address City/[facility] Co de Phone Number [facility] [address] [place] [address] * CREATININE, FLUID (06/13/2017 8:26 EDT) Creatinine, Fluid 0.57 mg/dl 06/13/2017 10:18 EDT [facility] Comment: Reference Range: Pleural fluid specimen (specimen) No reference range available Peritoneal fluid sample (specimen) No reference range available Drain device specimen (specimen) No reference range available Pleural fluid specimen (specimen) [facility] PLEURAL FLUID SPECIMEN / Unknown 06/13/2017 8:26 EDT 06/13/2017 8:51 EDT Michael Pratt MD GEN LAB UNIT COLLECT ORDERABLES Performing Organization Address [facility] Co de Phone Number [facility] [address] [place] [address] * PROTEIN, TOTAL (06/13/2017 6:08 EDT) Total Protein 7.2 6.3 - 8.2 g/dl 06/13/2017 15:23 EDT [facility] BLOOD SPECIMEN / Unknown 06/13/2017 6:08 EDT 06/13/2017 6:38 EDT Michael Pratt MD CHEMISTRY & BLOOD GA S ORDERABLES Performing Organization Address [facility] Co de Phone Number [facility] [address] [place] [address] * LDH (06/13/2017 6:08 EDT) LDH 428 313 - 618 U/L 06/13/2017 15:23 EDT [facility] BLOOD SPECIMEN / Unknown 06/13/2017 6:08 EDT 06/13/2017 6:38 EDT Michael Pratt MD CHEMISTRY & BLOOD GA S ORDERABLES [facility] [address] [place] [address] * (ABNORMAL) MAGNESIUM (06/13/2017 6:08 EDT) Magnesium 1.4(L) 1.7 - 2.8 mg/dl 06/13/2017 7:07 EDT [facility] Blood specimen (specimen) BLOOD SPECIMEN / Unknown 06/13/2017 6:08 EDT 06/13/2017 6:38 EDT Michael Pratt MD CHEMISTRY & BLOOD GA S ORDERABLES Performing Organization Address [facility] Co de Phone Number [facility] [address] [place] [address] * (ABNORMAL) ELECTROLYTES (06/13/2017 6:08 EDT) Sodium 132(L) 136 - 145 mEq/L 06/13/2017 7:07 EDT [facility] Potassium 3.6 3.5 - 5.0 mEq/L 06/13/2017 7:07 T [facility] Chloride 91(L) 96 - 110 mEq/L 06/13/2017 7:07 T [facility] CO2 29 22 - 32 mEq/L 06/13/2017 7:07 EDT [facility] Blood specimen (specimen) BLOOD SPECIMEN / Unknown 06/13/2017 6:08 EDT 06/13/2017 6:38 EDT Michael Pratt MD CHEMISTRY & BLOOD GA S ORDERABLES Performing Organization Address City/[facility]/ZIP Co de Phone Number [facility] [address] [place] [address] * (ABNORMAL) HEMAGRAM (06/13/2017 6:08 EDT) WBC 9.97 4.0 - 10.4 K/cmm 06/13/2017 6:52 [facility] RBC 3.76(L) 4.36 - 5.78 M/cmm 06/13/2017 6:52 [facility] Hemoglobin 12.2(L) 13.8 - 17.3 gm/dl 06/13/2017 6:52 [facility] HCT 34.9(L) 39.5 - 50.2 % 06/13/2017 6:52 [facility] MCV 93 81 - 95 fl 06/13/2017 6:52 [facility] MCH 32.4 27.6 - 33.0 pg 06/13/2017 6:52 [facility] MCHC 35.0 32.8 - 36.4 gm/dl 06/13/2017 6:52 [facility] RDW-CV 11.8 <14.2 % 06/13/2017 6:52 [facility] RDW-SD 40.4 <46.0 fl 06/13/2017 6:52 [facility] PLT 223 141 - 377 K/cmm 06/13/2017 6:52 [facility] MPV 11.9 9.5 - 12.7 fl 06/13/2017 6:52 [facility] Blood specimen (specimen) BLOOD SPECIMEN / Unknown 06/13/2017 6:08 EDT 06/13/2017 6:38 EDT Michael Pratt MD HEMATOLOGY & PF4 ORD ERABLES [facility] [address] [place] [address] * (ABNORMAL) CREATININE (06/13/2017 6:08 EDT) Creatinine 0.58(L) 0.66 - 1.25 mg/dl 06/13/2017 7:07 T [facility] GFR, Calculated 106 >60 ml/min/1.7 3m2 06/13/2017 7:07 EDT [facility] Comment: eGFR calculated using CKD-EPI equation for non Americans. Multiply eGFR by 1.16 for Americans. Blood specimen (specimen) BLOOD SPECIMEN / Unknown 06/13/2017 6:08 EDT 06/13/2017 6:38 EDT Michael Pratt MD CHEMISTRY & BLOOD GA S ORDERABLES Performing Organization Address [facility] de Phone Number [facility] [address] [place] [address] * (ABNORMAL) PROTIME (06/13/2017 6:08 EDT) Pro Time 14.0(H) 10.3 - 13.4 secs 06/13/2017 7:00 EDT [facility] Comment:NOTE NEW REFERENCE Vern FUNG OF APR 03 2017 I.N.R. 1.2(H) 0.9 - 1.1 Ratio 06/13/2017 7:00 EDT [facility] Comment: Moderate Intensity Coumadin INR = 2.0-3.0 Adjustments in anticoagulant therapy dose should be based upon the INR and NOT the Pro Time. Blood specimen (specimen) BLOOD SPECIMEN / Unknown 06/13/2017 6:08 EDT 06/13/2017 6:38 EDT Michael Pratt MD HEMATOLOGY & PF4 ORD ERABLES Performing Organization Address [facility] Co de Phone Number [facility] [address] [place] [address] * BACTERIAL CULTURE, BLOOD (06/12/2017 22:47 EDT) Result No growth 06/17/2017 7:12 EDT [facility] Blood specimen (specimen) BLOOD SPECIMEN / Unknown 06/12/2017 22:47 EDT 06/12/2017 23:20 EDT Comment:Left~Antecubital Denilson Shannon MD MICROBIOLOGY - GENE RAL ORDERABLES Performing Organization Address [facility] de Phone Number [facility] [address] [place] [address] * (ABNORMAL) D-DIMER (06/12/2017 22:40 EDT) D-Dimer 724(H) <230 ng/mL 06/12/2017 23:14 EDT [facility] Comment: CUTOFF VALUE FOR THE EXCLUSION OF DVT and PE: 230 ng/mL D-dimer units Any use of the age-adjusted cutoff value is a post-analytic modification of this FDA-approved test and is considered off-label use of the test result. [facility] laboratory does not have literature to support the validity of an age-adjusted cutoff for our specific assay. Blood specimen (specimen) BLOOD SPECIMEN / Unknown 06/12/2017 22:40 EDT 06/12/2017 22:57 EDT Rahat Aviles MD HEMATOLOGY & PF4 OR DERABLES Performing Organization Address City/[facility]/ZIP Co de Phone Number [facility] [address] [place] [address] * BACTERIAL CULTURE, BLOOD (06/12/2017 22:40 EDT) Result No growth 06/17/2017 7:12 EDT [facility] Blood specimen (specimen) BLOOD SPECIMEN / Unknown 06/12/2017 22:40 EDT 06/12/2017 23:20 EDT Comment:Right~Antecubital Denilson Shannon MD MICROBIOLOGY - GENE RAL ORDERABLES Performing Organization Address City/[facility]/ZIP Co de Phone Number [facility] [address] [place] [address] * INPATIENT ADD-ON (06/12/2017 21:30 EDT) Tests to be added NT PRO BNP 06/12/2017 21:28 EDT [facility] Number for problems Not Given 06/12/2017 21:31 EDT [facility] Accession number [id number] 06/12/2017 21:31 EDT [facility] TOPOGRAPHY UNKNOWN / Unknown 06/12/2017 21:30 EDT 06/12/2017 21:31 EDT Denilson Shannon MD HEMATOLOGY & PF4 OR DERABLES [facility] [address] [place] [address] * CHEST PA AND LATERAL (06/12/2017 20:56 EDT) Anatomical Region Laterality Modality Other 06/12/2017 20:5 6 EDT 06/12/2017 21:12 EDT Narrative 06/12/2017 21:12 EDT CHEST PA AND LATERAL ??06/12/2017 8:56 PM Clinical History/Comments: dyspnea Comparison: May 2017. Technique: Frontal and lateral views of the chest were performed. Findings: Soft tissues: ??A left chest wall pacer generator is present with leads terminating in the right ventricle and right atrium. Bones: Normal. Cardiac and mediastinal contours:Normal. Lungs: There has been interval improvement in the left retrocardiac opacity. The right lung appears relatively stable. ?? Pleura/diaphragms: Again noted is dense thickening and calcification of the right pleura. A moderate left pleural effusion is present. Impression: 1. ??Slight interval improvement in left lower lobe aeration. Procedure Note Iva Juárez MD - 06/12/2017 CHEST PA AND LATERAL 06/12/2017 8:56 PM Clinical History/Comments: dyspnea Comparison: May 2017. Technique: Frontal and lateral views of the chest were performed. Findings: Soft tissues: A left chest wall pacer generator is present with leads terminating in the right ventricle and right atrium. Bones: Normal. Cardiac and mediastinal contours:Normal. Lungs: There has been interval improvement in the left retrocardiac opacity. The right lung appears relatively stable. Pleura/diaphragms: Again noted is dense thickening and calcification of the right pleura. A moderate left pleural effusion is present. Impression: 1. Slight interval improvement in left lower lobe aeration. Michael Pratt MD IMG DIAGNOSTIC IMAGI NG ORDERABLES * INPATIENT ADD-ON (06/12/2017 19:20 EDT) Pathologist [facility] Tests to be added HIGH SENSITIVITY CRP 06/12/2017 19:17 EDT [facility] Number for problems [id number] 06/12/2017 19:24 EDT [facility] Accession number [id number] 06/12/2017 19:24 EDT [facility] TOPOGRAPHY UNKNOWN / Unknown 06/12/2017 19:20 EDT 06/12/2017 19:21 EDT Michael Pratt MD HEMATOLOGY & PF4 ORD ERABLES Performing Organization Address [facility] Co de Phone Number [facility] [address] [place] [address] * (ABNORMAL) NT PRO BNP (06/12/2017 18:37 EDT) [facility] NT Pro BNP 1,380(H) <300 pg/ml 06/12/2017 22:19 EDT [facility] Comment: Reference Range: NT-proBNP values [...] 89% and 72% for acute congestive failure. BLOOD SPECIMEN / Unknown 06/12/2017 18:37 EDT 06/12/2017 18:58 EDT Catherine Walker MD CHEMISTRY & BLOOD GA S ORDERABLES Performing Organization Address [facility]/ZIP Co de Phone Number [facility] [address] [place] [address] * HIGH SENSITIVITY C-REACTIVE PROTEIN (CARDIOVASCULAR DISEASE) (06/12/2017 18:37 EDT) [facility] High Sensitivity CRP 83.3 mg/L 06/13/2017 10:08 EDT [facility] Comment: Reference Range: <1.0 mg/L Low risk 1.0-3.0 mg/L Average risk >3.0 mg/L High risk >10.0 mg/L Acute inflammation BLOOD SPECIMEN / Unknown 06/12/2017 18:37 EDT 06/12/2017 18:58 EDT Catherine Walker MD CHEMISTRY & BLOOD GA S ORDERABLES Performing Organization Address City/[facility]/ZIP Co de Phone Number [facility] [address] [place] [address] * TROPONIN I (06/12/2017 18:37 EDT) Troponin I (ng/mL) <0.034 <0.034 ng/ml 06/12/2017 19:49 EDT [facility] Blood specimen (specimen) BLOOD SPECIMEN / Unknown 06/12/2017 18:37 EDT 06/12/2017 18:58 EDT Catherine Walker MD CHEMISTRY & BLOOD GA S ORDERABLES Performing Organization Address [facility] de Phone Number [facility] [address] [place] [address] * (ABNORMAL) HEMAGRAM (06/12/2017 18:37 EDT) WBC 17.10(H) 4.0 - 10.4 K/cmm 06/12/2017 19:04 [facility] RBC 3.70(L) 4.36 - 5.78 M/cmm 06/12/2017 19:04 [facility] Hemoglobin 12.2(L) 13.8 - 17.3 gm/dl 06/12/2017 19:04 [facility] HCT 34.1(L) 39.5 - 50.2 % 06/12/2017 19:04 [facility] MCV 92 81 - 95 fl 06/12/2017 19:04 [facility] MCH 33.0 27.6 - 33.0 pg 06/12/2017 19:04 [facility] MCHC 35.8 32.8 - 36.4 gm/dl 06/12/2017 19:04 [facility] RDW-CV 11.6 <14.2 % 06/12/2017 19:04 EDT [facility] RDW-SD 39.4 <46.0 fl 06/12/2017 19:04 EDT [facility] PLT 206 141 - 377 K/cmm 06/12/2017 19:04 T [facility] MPV 12.3 9.5 - 12.7 fl 06/12/2017 19:04 EDT [facility] Blood specimen (specimen) BLOOD SPECIMEN / Unknown 06/12/2017 18:37 EDT 06/12/2017 18:58 EDT Catherine Walker MD HEMATOLOGY & PF4 ORD ERABLES Performing Organization Address City/[facility]/ZIP Co de Phone Number [facility] [address] [place] [address] * BUN (06/12/2017 18:37 EDT) BUN 10 10 - 26 mg/dl 06/12/2017 19:34 EDT [facility] Blood specimen (specimen) BLOOD SPECIMEN / Unknown 06/12/2017 18:37 EDT 06/12/2017 18:58 EDT Catherine Walker MD CHEMISTRY & BLOOD GA S ORDERABLES Performing Organization Address [facility] Co de Phone Number [facility] [address] [place] [address] * (ABNORMAL) ELECTROLYTES (06/12/2017 18:37 EDT) Sodium 129(L) 136 - 145 mEq/L 06/12/2017 19:34 EDT [facility] Potassium 3.4(L) 3.5 - 5.0 mEq/L 06/12/2017 19:34 T [facility] Chloride 91(L) 96 - 110 mEq/L 06/12/2017 19:34 EDT [facility] CO2 27 22 - 32 mEq/L 06/12/2017 19:34 EDT [facility] Blood specimen (specimen) BLOOD SPECIMEN / Unknown 06/12/2017 18:37 EDT 06/12/2017 18:58 EDT Catherine Walker MD CHEMISTRY & BLOOD GA S ORDERABLES Performing Organization Address [facility] de Phone Number [facility] [address] [place] [address] * (ABNORMAL) CREATININE (06/12/2017 18:37 EDT) Creatinine 0.54(L) 0.66 - 1.25 mg/dl 06/12/2017 19:34 EDT [facility] GFR, Calculated 109 >60 ml/min/1.7 3m2 06/12/2017 19:34 EDT [facility] Comment: eGFR calculated using CKD-EPI equation for non Americans. Multiply eGFR by 1.16 for Americans. Blood specimen (specimen) BLOOD SPECIMEN / Unknown 06/12/2017 18:37 EDT 06/12/2017 18:58 EDT Catherine Walker MD CHEMISTRY & BLOOD GA S ORDERABLES Performing Organization Address [facility] de Phone Number [facility] [address] [place] [address] * EKG 12-LEAD (06/12/2017 18:27 EDT) 06/12/2017 18:2 7 EDT Narrative [facility] - 06/29/2017 15:57 EDT ? [facility] ? Test Date: ?2017-06-12 Pat Name: ? DAVID FARFAN ?Department: ?? Subha Chao ? Room: ? ME505 Gender: ? Male ? 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 [id number] : ?1950 ? Requested By: GISELA Dunn Order Number: [id number] ? Reading MD: ?? SENG PERSON SA MD ? Measurements Intervals ?[place] ? Rate: ? 120 ?P: ?165 MA: ? 235 ?QRS: ?-22 QRSD: ? 176 ?T: ?171 QT: ? 369 ? QTc: ?521 ? Interpretive Statements ELECTRONIC VENTRICULAR PACEMAKER atrial tachycardia with ventricular tracking ABNORMAL RHYTHM ECG Automated Interpretation. ??Provider Interpretation to follow. Compared to ECG 05/27/2017 07:37:21 Sinus rhythm no longer present I reviewed the tracing and have either agreed or edited the findings in this report. Electronically Signed On 06-29-2017 15:57:35 EDT by SENG PERSON SA, MD. 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 Provider Interpretation to follow. Compared to ECG 05/27/2017 07:37:21 Sinus rhythm no longer present I reviewed the tracing and have either agreed or edited the findings inthis report. Electronically Signed On 06-29-2017 15:57:35 EDT by SENG AGUILAR SA, MD. 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 Heart failure (HCC-CMS) Heart failure, unspecified documented in this encounter Administered Medications Inactive Administered Medications - up to 3 most recent administrations Medication Order MAR Action Action Date Dose Rate Site acetaminophen (TYLENOL) tablet 650 mg 650 mg, oral, EVERY 4 HOURS PRN, Starting on [place] 06/12/17 at 1748, Until 06/16/17 at 1857, Pain, Routine Given 06/13/2017 13:59 EDT 650 mg colchicine (COLCRYS) tablet 0.6 mg 0.6 mg, oral, 2 TIMES DAILY, First dose on [place] 06/12/17 at 2100, Until Discontinued, Routine Given 06/16/2017 8:02 EDT 0.6 mg Given 06/15/2017 20:31 EDT 0.6 mg Given 06/15/2017 8:52 EDT 0.6 mg dextromethorphan-guaifenesin (ROBITUSSIN DM) 10-100 mg/5 mL syrup 5 mL 5 mL, oral, EVERY 4 HOURS PRN, Starting on Fri06/14/17 at 0835, Until Fri06/16/17 at 1857, Cough, Routine Given 06/16/2017 14:24 EDT 5 mL Given 06/14/2017 23:25 EDT 5 mL Given 06/14/2017 10:58 EDT 5 mL heparin injection 5,000 Units 5,000 Units, subcutaneous, EVERY 8 HOURS, First dose on Fri06/13/17 at 0000, Until Discontinued, Routine Given 06/16/2017 0:17 EDT 5,000 Units Given 06/15/2017 16:04 EDT 5,000 Units Given 06/15/2017 8:58 EDT 5,000 Units Abdo iva Tissue magnesium sulfate 2 g in water 50 mL 2 g, intravenous, Administer over 30 Minutes, NOW X1, 1 dose, On Fri06/13/17 at 0745, Routine Given 06/13/2017 10:58 ED T 2 g magnesium sulfate 2 g in water 50 mL 2 g, intravenous, Administer over 30 Minutes, NOW X1, 1 dose, On Fri06/15/17 at 0845, Routine Given 06/15/2017 8:59 EDT 2 g metoprolol (LOPRESSOR) tablet 25 mg 25 mg, oral, 2 TIMES DAILY, First dose on Fri06/14/17 at 1045, Until Discontinued, Routine Given 06/16/2017 8:02 EDT 25 mg Given 06/15/2017 20:31 EDT 25 mg Given 06/15/2017 8:58 EDT 25 mg morphine injection intravenous, PRN, Starting on Fri06/13/17 at 1247, Until Fri06/14/17 at 2308, Routine Given 06/13/2017 12:47 EDT 2 mg potassium chloride SA (K-DUR, KLOR-CON) tablet 40 mEq 40 mEq, oral, Once (Without Time Specified), 1 dose, Starting on Fri06/12/17 at 2000, Until Fri06/12/17 at 2004, Routine Given 06/12/2017 20:04 EDT 40 mEq potassium chloride SA (K-DUR, KLOR-CON) tablet 40 mEq 40 mEq, oral, NOW X1, 1 dose, On 06/15/17 at 0845, Routine Given 06/15/2017 8:59 EDT 40 mEq potassium chloride SA (K-DUR, KLOR-CON) tablet 40 mEq 40 mEq, oral, NOW X1, 1 dose, On 06/16/17 at 1000, Routine Given 06/16/2017 10:04 EDT 40 mEq predniSONE (DELTASONE) tablet 40 mg 40 mg, oral, DAILY, First dose on Fri06/13/17 at 1330, Until Discontinued, Routine Given 06/16/2017 8:02 EDT 40 mg Given 06/15/2017 8:52 EDT 40 mg Given 06/14/2017 9:19 EDT 40 mg sodium chloride 0.9 % (NS) infusion intravenous, FA IP EQF CONTINUOUS PRN FOR ONE STEP MEDS, Starting on Fri06/13/17 at 1246, Until 06/14/17 at 2308, Routine New Bag 06/13/2017 12:46 EDT 25 mL/hr 25 mL/hr sodium chloride 0.9 % flush 3 mL 3 mL, intravenous, EVERY 8 HOURS, First dose on Fri06/12/17 at 1815, Until Discontinued, Routine Given 06/16/2017 8:02 EDT 3 mL Given 06/16/2017 0:17 EDT 3 mL Given 06/15/2017 16:04 EDT 3 mL torsemide (DEMADEX) tablet 40 mg 40 mg, oral, DAILY, First dose on Fri06/12/17 at 1900, Until Discontinued, STAT Given 06/16/2017 8:03 EDT 40 mg Given 06/15/2017 8:53 EDT 40 mg Given 06/14/2017 9:20 EDT 40 mg documented in this encounter Active and Recently Administered Medications Times are shown in EDT. Scheduled Medication Order 06/14/2017 06/15/2017 06/16/2017 colchicine (COLCRYS) tablet 0.6 mg 0.6 mg, oral, 2 TIMES DAILY, First dose on Fri06/12/17 at 2100, Until Discontinued, Routine 0919 (Given - Provider: Mila Mcallister RN)2103 (Given - Provider: Mila Mcallister, TISH) 08 (Given - Provider: Omayra Farley RN)2030 (Given - Provider: Diamond Manzano RN) 08 (Given - Provider: Omayra Farley RN) heparin injection 5,000 Units 5,000 Units, subcutaneous, EVERY 8 HOURS, First dose on Fri06/13/17 at 0000, Until Discontinued, Routine 0012 (Given - Provider: Hailee Cox RN)09 (Given - Provider: Mila Mcallister RN)1636 (Given - Provider: Mila Mcallister RN)232 (Given - Provider: Licha Strong RN) 0858 (Given - Provider: Omayra Farley RN)1604 (Given - Provider: Omayra Farley, TISH) 0017 (Given - Provider: Diamond Manzano RN)0803 (Not Given - Provider: Omayra Farley RN - Reason: Patient/family refused)1506 (Not Given - Provider: Omayra Farley RN - Reason: Other - Comment: to be dc'd home, ambulating frequently ) magnesium sulfate 2 g in water 50 mL (COMPLETED) 2 g, intravenous, Administer over 30 Minutes, NOW X1, 1 dose, On 06/15/17 at 0845, Routine 0859 (Given - Provider: Omayra Farley, TISH - Comment: 1.7) metoprolol (LOPRESSOR) tablet 25 mg 25 mg, oral, 2 TIMES DAILY, First dose on 06/14/17 at 1045, Until Discontinued, Routine 1050 (Given - Provider: Mila Mcallister RN)2103 (Given - Provider: Mila Mcallister RN) 08 (Given - Provider: Omayra Farley RN)2030 (Given - Provider: Diamond Manzano RN) 08 (Given - Provider: Omayra Farley, TISH) potassium chloride SA (K-DUR, KLOR-CON) tablet 40 mEq (COMPLETED) 40 mEq, oral, NOW X1, 1 dose, On 06/15/17 at 0845, Routine 0859 (Given - Provider: Omayra Farley RN - Comment: 3.4) potassium chloride SA (K-DUR, KLOR-CON) tablet 40 mEq (COMPLETED) 40 mEq, oral, NOW X1, 1 dose, On Fri06/16/17 at 1000, Routine 1004 (Given - Provider: Omayra Farley RN - Comment: k 3.7) predniSONE (DELTASONE) tablet 40 mg 40 mg, oral, DAILY, First dose on Fri06/13/17 at 1330, Until Discontinued, Routine 0919 (Given - Provider: Mila Mcallister RN) 0852 (Given - Provider: Omayra Farley, TISH) 0802 (Given - Provider: Omayra Farley RN) sodium chloride 0.9 % flush 3 mL 3 mL, intravenous, EVERY 8 HOURS, First dose on [place] 06/12/17 at 1815, Until Discontinued, Routine 0013 (Given - Provider: Hailee Cox RN)0921 (Given - Provider: Mila Mcallister RN)1639 (Given - Provider: Mila Mcallister RN)2320 (Given - Provider: Licha Strong RN) 0858 (Given - Provider: Omayra Farley RN)1604 (Given - Provider: Omayra Farley RN) 0017 (Given - Provider: Diamond Manzano RN)0802 (Given - Provider: Omayra Farley RN)1506 (Not Given - Provider: Omayra Farley RN - Reason: Other - Comment: discharge orders) torsemide (DEMADEX) tablet 40 mg 40 mg, oral, DAILY, First dose on [place] 06/12/17 at 1900, Until Discontinued, STAT 0920 (Given - Provider: Mila Mcallister RN) 0853 (Given - Provider: Omayra Farley RN) 0803 (Given - Provider: Omayra Farley RN) PRN Medication Order 06/14/2017 06/15/2017 06/16/2017 acetaminophen (TYLENOL) tablet 650 mg 650 mg, oral, EVERY 4 HOURS PRN, Starting on [place] 06/12/17 at 1748, Until Fri06/16/17 at 1857, Pain, Routine dextromethorphan-guaifene sin (ROBITUSSIN DM) 10-100 mg/5 mL syrup 5 mL 5 mL, oral, EVERY 4 HOURS PRN, Starting on 06/14/17 at 0835, Until 06/16/17 at 1857, Cough, Routine 1058 (Given - Provider: Mila Mcallister, TISH)2325 (Given - Provider: Licha Strong, TISH) 1424 (Given - Provider: Omayra Farley RN) documented in this encounter Orders Medications Ordered That Tom ht Not Have Been Administered Count Last Ordered Date First Ordered Date potassium, sodium phosphates (PHOS-NAK) 280-160-250 mg packet 8 mmol 2 06/16/2017 fentaNYL citrate (PF) 50 mcg/mL injection 1 06/13/2017 heparin 1,000 unit/mL injection 1 8 lidocaine 20 mg/mL (2 %) injection 1 2017 midazolam (PF) (VERSED) 1 mg/mL injection 1 06/13/2017 morphine 10 mg/mL injection 1 06/13/2017 nitroglycerin 100 mcg/mL syringe 1 06/14/19 18 verapamil (ISOPTIN) 2.5 mg/mL injection 1 0 06/13/2017 Diet Count Last Ordered Date First Orde red Date DISCHARGE DIET 3 06/16/2017 Nursing Count Last Ordered Date First Orde red Date ACTIVITY INSTRUCTIONS 1 06/16/2017 BATHING INSTRUCTIONS 1 06/16/2017 SUSPEND TELEMETRY FOR PROCEDURE 1 8 CIWA SCORING 1 06/12/2017 INSERT SALINE LOCK 1 06/12/2017 MEASURE WEIGHT 1 06/12/2017 NOTIFY WHITE SUGAR SYRUP OPERATOR 1 06/12/2017 VTE PHARMACOLOGIC PROPHYLAXI S CURRENTLY ORDERED OR ON ALTERNATIVE THER 1 06/12/2017 IV Count Last Ordered Date First Orde red Date IV REQUEST 3 06/13/2017 06/12/2017 Admission Count Last Ordered Date First Orde red Date STATUS: INPATIENT ACUTE ADMISSION 1 018 Transfer Count Last Ordered Date First Orde red Date NOTIFY PPS OF DISCHARGE COMPLETE 1 06/17/19 18 UR PATIENT STATUS CHANGE 1 06/13/2017 Discharge Count Last Ordered Date First Orde red Date DISCHARGE PATIENT 1 06/16/2017 Legal Count Last Ordered Date First Orde red Date MISCELLANEOUS DISCHARGE INSTRUCTIONS 2 06/01 documented in this encounter Care Teams Collar Folder Operator Relationship Specialty Start Date End Date Katia Stone, BELLAC [address] [place] [id number] PCP - General 05/02/17 documented as of this encounter
--- OUTSIDE RECORDS SUMMARY | 2023-09-22 18:57 | XMS_ITS | Encounter Summary ---
Author Organization [facility] Address [address] [place] [address] Care Team Providers Care Induction Furnace Operator Name Role Phone Katia Stone PA-C Primary Care Provider [phone]- [phone] Reason for Visit * Reason Onset Date Comments Other 07/16/2017 Encounter Details Date Type Department Care Team (Late st Contact Info) Description 07/16/2017 Telephone [facility] [place] [address] [place] [address] Caitie Atwood, TAIWO [address] [facility] [address] [place] [address] Other Social History Tobacco Use Types Packs/Day [...] Encounter - Caitie Atwood NP - 07/16/2017 1358 EDT I spoke to the director of home care hospice at the [place] [facility]. There following the patient.He is afebrile and his lungs are clear. His O2 sat is acceptable. He did miss 3 doses of torsemide last week and this is been restarted at 20 mg per day. He did not take his prednisone taper correctly and is running out of prednisone. They have ordered more prednisone. They will have a BNP, BMP andCBC drawn in the near future. The patient did [...] Stone, MINGO [address] [place] [id number] PCP - General 05/02/17 documented as of this encounter
--- OUTSIDE RECORDS SUMMARY | 2023-09-22 18:57 | XMS_ITS | Encounter Summary ---
Author Organization [facility] Address [address] [place] [address] Care Team Providers Care Formula Weigher Name Role Phone Katia Stone PA-C Primary Care Provider +1- [phone] Reason for Visit * Reason Onset Date Comments Coordination Of Care 11/12/2019 Encounter Details Date Type Department Care Team (Late st Contact Info) Description 11/12/2019 Telephone [facility]iology [place] [address] [place] [address] Belinda Falk, TISH Coordination Of Care Social History Tobacco Use Types Packs/Day [...] Message relayed to Dr. Rosenberg for review. * Telephone Encounter - Belinda Falk RN - 11/12/2019 1036 EDT An from [employer] calling in to report that patient has had fallen 3 times yesterday. documented in this encounter Plan of Treatment Not on file documented as of this encounter Visit Diagnoses Not on filedocumented in this encounter Care Teams Formula Weigher Relationship Specialty Start Date End Date Katia Stone, BELLAC [address] [place] [id number] PCP - General 05/02/17 documented as of this encounter
--- OUTSIDE RECORDS SUMMARY | 2023-09-22 18:57 | XMS_ITS | Encounter Summary ---
Author Organization [facility] Address [address] [place] [address] Care Team Providers Care Employee Training Specialist Name Role Phone Katia Stone PA-C Primary Care Provider +1- [phone] Encounter Details Date Type Department Care Team (Late st Contact Info) Description 06/12/2018 Historical Results Only [facility] [address] [place], [place] [address] Katia Stone, MINGO [address] [place] [address] Social History Tobacco Use Types [...] HEPATIC & CMP COMBO,FASTING - PMC Routine 06/12/2018 16:46 EDT documented in this encounter Results * (ABNORMAL) HEPATIC & CMP COMBO,FASTING - PMC (06/12/2018 16:46 EDT) Sodium 125(L) 136 - 145 06/12/2018 17:52 [facility] Potassium 5.0 3.5 - 5.1 06/12/2018 17:52 [facility] Chloride 89(L) 96 - 107 06/12/2018 17:52 [facility] CO2 Total 28.7 21 - 32 06/12/2018 17:52 [facility] Anion Gap 7.3 06/12/2018 17:52 [facility] BUN 8 7 - 25 06/12/2018 17:52 [facility] Creatinine 0.60(L) 0.7 - 1.30 06/12/2018 17:52 [facility] Estimated GFR >60 >60 06/12/2018 17:59 [facility] Comment: EGFR UNITS: mL/min/1.73 m 2 CKD-EPI Equation used to calculate. Glucose 84 70 - 180 06/12/2018 17:52 [facility] Calcium 8.2(L) 8.5 - 10.5 06/12/2018 17:52 [facility] CALCIUM,CORRECTE D - PMC 8.7 8.5 - 10.5 06/12/2018 17:52 [facility] BILIRUBIN - PMC 0.30 0.00 - 1.00 06/12/2018 17:52 [facility] AST 39(H) 15 - 37 06/12/2018 17:52 [facility] ALT 52 12 - 78 06/12/2018 17:52 [facility] Alkaline Phosphatase 93 46 - 116 06/12/2018 17:52 EDT [facility] Total Protein 7.1 6.4 - 8.2 06/12/2018 17:52 T [facility] Albumin 3.4 3.4 - 5.0 06/12/2018 17:52 T [facility] GLOBULIN - PMC 3.7 06/12/2018 17:52 T [facility] ALBUMIN/GLOBULIN RATIO - PMC 0.9 06/12/2018 17:52 T [facility] 06/12/2018 16:4 6 EDT 06/12/2018 16:47 EDT Katia Stone PA-C CHEMISTRY & BLOOD GAS ORDERABLES [facility] documented in this encounter Visit Diagnoses Not on filedocumented in this encounter Care Teams Employee Training Specialist Relationship Specialty Start Date End Date Katia Stone PA-C [address] [facility] [place] [address] PCP - General 05/02/17 documented as of this encounter
--- OUTSIDE RECORDS SUMMARY | 2023-09-22 18:57 | XMS_ITS | Encounter Summary ---
Author Organization [facility] Address [address] [place] [address] Care Team Providers Care Geriatric Social Work Professor Name Role Phone Katia Stone PA-C Primary Care Provider +1- [phone] Reason for Visit * Reason Onset Date Comments Other 06/18/2017 discharged on 06.03.15 Follow-up 07/16/2017 Encounter Details Date Type Department Care Team (Late st Contact Info) Description 06/18/2017 Telephone [facility] Cardiology - [address] [place] [address] Pierre Rubio MD [address] [facility] [address] [place] [address] Other (discharged on 06.03.15); Follow-up Social History Tobacco Use Types Packs/Day [...] encounter Miscellaneous Notes * Telephone Encounter - Felicitas Pearce RN - 07/16/2017 1310 EDT Riley WINSTON at [facility] called. States : Wt 2 weeks [...] taper and [facility] [place], stated colchicine has run out- not sure if pt needs a refill or not. States he called pt's PCP in [place] and that MD wants to know if RN should draw labs? Please call back JOAN as he is with the pt now. Routing to Giovanni Sam NP and Belinda Eddy RN and will also go speak with one of them as well. Let Riley WINSTON know that Belinda Eddy would call back. * Telephone Encounter - Isidra Telles - 07/16/2017 1257 EDT [facility], Weight at 224, has been fluctuating Limited edema Has been winded Less endurance Cough has green secretions Some slight harsh breathing sounds Questions: Blood Work? Prednisone Taper seems to be off, will need a refill if continuing in the same manner * Telephone Encounter - Belinda Falk RN - 06/18/2017 1630 EDT Spoke with Riley horta [facility] mentioned call placed to patient to confirm medication taking. Per patient he was taking Torsemide 40 mg daily and was not taking lasix. Per Bill this was differnet then what was discussed. Referred home Health to discuss care with Shailesh Torres MD in [place] and Katia Mccallum PA-C, [facility]. * Telephone Encounter - Belinda Falk RN - 06/18/2017 1623 EDT Spoke with patient he is not taking lasix, he mentioned that this was stopped prior to him going into the hospital 05/20. Patient mentioned he is taking torsemide 40mg a daily. * Telephone Encounter - Felicitas Pearce RN - 06/18/2017 1523 EDT Will route to Belinda Eddy RN to Dr Joy * Telephone Encounter - Jose Osborne - 06/18/2017 1440 EDT Patient was discharged on 06.16.17. He has been feeling ok. [facility] health is calling to discuss his medications as he has been taking toursemide and lasix. Since he has been home he thought he was supposed to be taking both. Clarification is needed. Theyare also saying he should not be taking ibuprofen Family is going to be picking up Tylenol for him. documented in this encounter Plan of Treatment Not on file documented as of this encounter Visit Diagnoses Not on filedocumented in this encounter Care Teams Geriatric Social Work Professor Relationship Specialty Start Date End Date Katia Stone PA-C [address] [place] [address] PCP - General 05/02/17 documented as of this encounter
--- OUTSIDE RECORDS SUMMARY | 2023-09-22 18:57 | XMS_ITS | Encounter Summary ---
Author Organization [facility] Address [address] [place] [address] Care Team Providers Care Outreach Manager Name Role Phone Katia Stone PA-C Primary Care Provider +1- [phone] Encounter Details Date Type Department Care Team (Late st Contact Info) Description 06/25/2018 Historical Results Only [facility] [address] [place] [address] [place], [place] [address] Leonard Crespo MD [address] [place] [address],[address] [place], [place] [id number] Social History Tobacco Use Types Packs/Day Years [...] Procedure Name Priority Date/Time Associated Diagnosis Comments CRISTO WELCH IGE - PMC Routine 06/25/2018 18:50 EDT ENGLISH MAXWELL, IGE Routine 06/25/2018 18:50 EDT HOUSE DUST MITES/D.P., IGE - PMC Routine 06/25/2018 18:50 EDT [facility] - PMC Routine 06/25/2018 18:50 EDT HEPATIC & CMP COMBO,FASTING - PMC Routine 06/25/2018 18:50 EDT documented in this encounter Results * CRISTO WELCH IGE - PMC (06/25/2018 18:50 EDT) CRISTO WELCH IGE - PMC <0.35 06/29/2018 15:54 EDT [facility] Comment: Class 0 (Negative <0.35) Test Performed by: [place] [id number] 06/25/2018 18:5 0 EDT 06/25/2018 18:56 EDT Leonard Crespo MD CHEMISTRY & BLOOD GA S ORDERABLES [facility] * ENGLISH MAXWELL IGE - PMC (06/25/2018 18:50 EDT) ENGLISH MAXWELL IGE <0.35 06/29/2018 15:54 EDT [facility] Comment: Class 0 (Negative <0.35) Test Performed by: [address] [id number] 06/25/2018 18:5 0 EDT 06/25/2018 18:56 EDT Leonard Crespo MD CHEMISTRY & BLOOD GA S ORDERABLES [facility] * HOUSE DUST MITES/D.P., IGE - PMC (06/25/2018 18:50 EDT) HOUSE DUST MITES/D.P., IGE - PMC <0.35 06/29/2018 15:54 EDT [facility] Comment: Class 0 (Negative <0.35) Test Performed by: [address] [id number] 06/25/2018 18:5 0 EDT 06/25/2018 18:56 EDT Leonard Crespo MD CHEMISTRY & BLOOD GA S ORDERABLES Performing Organization Address City/[facility]/ZIP Co de Phone Number [facility] * [facility],S - PMC (06/25/2018 18:50 EDT) ALTERNARIA TENUIS, IGE - PMC <0.35 06/29/2018 15:54 [facility] Comment:Class 0 (Negative <0 .35) CLAD - PMC <0.35 06/29/2018 15:54 [facility] Comment:Class 0 (Negative <0 .35) HOUSE DUST MITE/D.F., IGE <0.35 06/29/2018 15:54 EDT [facility] Comment: Class 0 (Negative <0.35) Test Performed by: [facility] - [address] [address] CAT - PMC <0.35 06/29/2018 15:54 [facility] Comment:Class 0 (Negative <0 .35) DOG DANDER, IGE - PMC <0.35 06/29/2018 15:54 [facility] Comment:Class 0 (Negative <0 .35) YAYA GRASS IGE - PMC <0.35 06/29/2018 15:54 [facility] Comment:Class 0 (Negative <0 .35) LAMBS QUARTER, IGE - PMC <0.35 06/29/2018 15:54 [facility] Comment:Class 0 (Negative <0 .35) OAK - PMC <0.35 06/29/2018 15:54 [facility] Comment:Class 0 (Negative <0 .35) RAGWEED, SHORT, IGE - PMC <0.35 06/29/2018 15:54 [facility] Comment:Class 0 (Negative <0 .35) CONNER GRASS, IGE - PMC <0.35 06/29/2018 15:54 [facility] Comment:Class 0 (Negative <0 .35) 06/25/2018 18:5 0 EDT 06/25/2018 18:56 EDT Leonard Crespo MD CHEMISTRY & BLOOD GA S ORDERABLES [facility] * (ABNORMAL) HEPATIC & CMP COMBO,FASTING - PMC (06/25/2018 18:50 EDT) Sodium 130(L) 136 - 145 06/25/2018 19:38 [facility] Potassium 4.3 3.5 - 5.1 06/25/2018 19:38 [facility] Chloride 93(L) 96 - 107 06/25/2018 19:38 [facility] CO2 Total 26.4 21 - 32 06/25/2018 19:38 [facility] Anion Gap 10.6 06/25/2018 19:38 [facility] BUN 15 7 - 25 06/25/2018 19:38 [facility] Creatinine 0.86 0.7 - 1.30 06/25/2018 19:38 [facility] Estimated GFR >60 >60 06/25/2018 19:38 [facility] Comment: EGFR UNITS: mL/min/1.73 m 2 CKD-EPI Equation used to calculate. Glucose 89 FASTIN -99 06/25/2018 19:38 [facility] Calcium 8.6 8.5 - 10.5 06/25/2018 19:38 [facility] CALCIUM,CORRECTE D - PMC 9.0 8.5 - 10.5 06/25/2018 19:38 [facility] BILIRUBIN - PMC 0.30 0.00 - 1.00 06/25/2018 19:38 [facility] AST 55(H) 15 - 37 06/25/2018 19:38 [facility] ALT 65 12 - 78 06/25/2018 19:38 [facility] Alkaline Phosphatase 115 46 - 116 06/25/2018 19:38 [facility] Total Protein 7.5 6.4 - 8.2 06/25/2018 19:38 [facility] Albumin 3.5 3.4 - 5.0 06/25/2018 19:38 [facility] GLOBULIN - PMC 4.0 06/25/2018 19:38 [facility] ALBUMIN/GLOBULIN RATIO - PMC 0.8 06/25/2018 19:38 [facility] 06/25/2018 18:5 0 EDT 06/25/2018 18:56 EDT Leonard Crespo MD CHEMISTRY & BLOOD GA S ORDERABLES [facility] documented in this encounter Visit Diagnoses Not on filedocumented in this encounter Care Teams Outreach Manager Relationship Specialty Start Date End Date Katia Stone, PABijalC [address] [place] [phone] PCP - General 05/02/17 documented as of this encounter
--- OUTSIDE RECORDS SUMMARY | 2023-09-22 18:57 | XMS_ITS | Encounter Summary ---
Author Organization [facility] Address [address] [place] [address] Care Team Providers Care Resident Director Name Role Phone Katia Stone PA-C Primary Care Provider +1- [phone] Reason for Visit * Reason Onset Date Comments Labs Only 07/22/2017 from 07/16 Encounter Details Date Type Department Care Team (Late st Contact Info) Description 07/22/2017 Telephone [facility] Cardiology - [facility] [address] [facility] [place] [address] Tony Rosenberg MD [address] [place] [address] [address] [place] [address] Labs Only (from 07/16) Social History Tobacco Use Types Packs/Day Years [...] call office back with call back number [phone]. * Telephone Encounter - Belinda Falk RN - 07/23/2017 1054 EDT Call received from Yessica with questions on when patient's follow-up appointment was with Dr. Rosenberg, where the labwork needed to be sent to, and in put from cardiology. Provided Yessica the provider access line for PCP to discuss patient's care with Dr. Rosenberg. Also discussed with Yessica since patient is seen in [facility] records are not accessible to our office (labs, and outside office notes). Yessica to review with PCP and formulate coordination of care with [facility]. * Telephone Encounter - Belinda Falk RN - 07/22/2017 1500 EDT Call placed to Yessica regarding Tim Mera unable to reach patient by phone. Message left on voicemail to call office back with call back number [phone]. * Telephone Encounter - Morena Lux - 07/22/2017 1456 EDT Yessica from [facility] Regarding patients labs from 07/16 Has anyone addressed them Please call to advise documented in this encounter Plan of Treatment Not on file documented as of this encounter Visit Diagnoses Not on filedocumented in this encounter Care Teams Resident Director Relationship Specialty Start Date End Date Katia Stone, MINGO [address] [place] [phone] PCP - General 05/02/17 documented as of this encounter
--- OUTSIDE RECORDS SUMMARY | 2023-09-22 18:57 | XMS_ITS | Encounter Summary ---
Author Organization [facility] Address [address] [place] [address] Care Team Providers Care Rip Sawyer Name Role Phone Katia Stone PA-C Primary Care Provider +1- [phone] Encounter Details Date Type Department Care Team (Late st Contact Info) Description 01/14/2020 Results Only [facility] [address] [place] [address] Unknown, Provider, Social History Tobacco Use Types [...] Procedure Name Priority Date/Time Associated Diagnosis Comments PROTIME Routine 01/14/2020 5:30 EST SODIUM Routine 01/14/2020 2:07 EST documented in this encounter Results * PROTIME (01/14/2020 5:30 EST) Pro Time 11.2 9.0 - 12.3 SEC 01/14/2020 6:26 [facility] PROTHROMBIN TIME WITH INR - PMC 1.1 0.8 - 1.2 RATIO 01/14/2020 6:26 [facility] Comment: Interpretive Information: Moderate Intensity Coumadin INR = 2.0-3.0. Adjustments in anticoagulant therapy dose should be based upon the INR and not the PT in seconds. The INR is used only on patients on stable oral anticoagulant therapy. It makes no significant contribution to the diagnosis or treatment of patients whose PT is prolonged for other reasons. 01/14/2020 5:30 EST 01/14/2020 5:54 EST [facility] - 01/14/2020 6:37 EST Sample collected [...] 21) Provider Unknown MD HEMATOLOGY & PF4 ORD ERABLES [facility] [address] [place] [address] * (ABNORMAL) SODIUM (01/14/2020 2:07 EST) Sodium 121(L) 136 - 145 mEq/L 01/14/2020 2:30 [facility] 01/14/2020 2:07 EST 01/14/2020 2:13 EST Narrative [facility] - 01/14/2020 2:41 EST Sample collected from saline lock with discard per protocol by non-laboratory staff. Provider Unknown CHEMISTRY & BLOOD GA S ORDERABLES Performing Organization Address City/State/[facility] Co de Phone Number [facility] [address] [place] [address] documented in this encounter Visit Diagnoses Not on filedocumented in this encounter Care Teams Rip Sawyer Relationship Specialty Start Date End Date Katia Stone, PABijalC [address] [place] [phone] PCP - General 05/02/17 documented as of this encounter
--- OUTSIDE RECORDS SUMMARY | 2023-09-22 18:57 | XMS_ITS | Encounter Summary ---
Author Organization [facility] Address [address] [place] [address] Care Team Providers Care It Consultant Name Role Phone Katia Stone PA-C Primary Care Provider +1- [phone] Reason for Visit * Reason Onset Date Comments Coordination Of Care 11/30/2019 Follow-up 12/02/2019 Follow-up 12/22/2019 Pacemaker Problem 12/23/2019 Encounter Details Date Type Department Care Team (Late st Contact Info) Description 11/30/2019 Telephone [facility] Cardiology - [address] [place] [address] Tony Rosenberg MD [address] [place], [place] [address] [place] [address] Coordination Of Care; Follow-up; Follow-up; Pacemaker Problem Social History Tobacco Use Types Packs/Day Years [...] 1551 EDT See other message from 12/22. * Telephone Encounter - Tony Tim - 12/23/2019 1317 EDT Patient calling back here to speak to someone about having the wire in his pacemaker fixed/replaced. Please call back to discuss. * Telephone Encounter - Jada Ochoa - 12/22/2019 1522 EDT Patient is calling back to follow up. Please call back. * Telephone Encounter - Vick Ziegler - 12/22/2019 1317 EDT Patient calling to follow up about broken wire on pace maker and is asking to speak with provider. Please call to discuss. * Telephone Encounter - Tony Tim - 12/02/2019 0951 EDT Patient has not heard from Dr Rosenberg about the broken lead in his device and he really needs to have it replaced. Please call back to consult. * Telephone Encounter - Tony Tim - 11/30/2019 2571 EDT Angela is calling to speak to Dr Rosenberg about patient. She states that patient is supposed to be having a lead replaced in his device, but that he is symptomatic. He is not scheduled for that procedureyet. Please call back to discuss documented in this encounter Plan of Treatment Not on file documented as of this encounter Visit Diagnoses Not on filedocumented in this encounter Care Teams It Consultant Relationship Specialty Start Date End Date Katia Stone, PABijalC [address] [place] [phone] PCP - General 05/02/17 documented as of this encounter
--- OUTSIDE RECORDS SUMMARY | 2023-09-22 18:57 | XMS_ITS | Encounter Summary ---
Author Organization [facility] Address [address] [place] [address] Care Team Providers Care Tool Lathe Operator Name Role Phone Katia Stone PA-C Primary Care Provider +1- [phone] Encounter Details Date Type Department Care Team (Late st Contact Info) Description 06/18/2018 Historical Results Only [facility] [address] [place], [place] [address] Katia Stone, MINGO [address] [place] [address] Social History Tobacco Use Types [...] HEPATIC & CMP COMBO,FASTING - PMC Routine 06/18/2018 12:14 EDT documented in this encounter Results * (ABNORMAL) HEPATIC & CMP COMBO,FASTING - PMC (06/18/2018 12:14 EDT) Sodium 125(L) 136 - 145 06/18/2018 13:02 [facility] Potassium 4.9 3.5 - 5.1 06/18/2018 13:02 [facility] Chloride 88(L) 96 - 107 06/18/2018 13:02 [facility] CO2 Total 27.6 21 - 32 06/18/2018 13:02 [facility] Anion Gap 8.4 06/18/2018 13:02 [facility] BUN 8 7 - 25 06/18/2018 13:02 [facility] Creatinine 0.69(L) 0.7 - 1.30 06/18/2018 13:02 [facility] Estimated GFR >60 >60 06/18/2018 13:03 [facility] Comment: EGFR UNITS: mL/min/1.73 m 2 CKD-EPI Equation used to calculate. Glucose 86 FASTIN -99 06/18/2018 13:02 [facility] Calcium 8.4(L) 8.5 - 10.5 06/18/2018 13:02 [facility] CALCIUM,CORRECTE D - PMC 8.9 8.5 - 10.5 06/18/2018 13:02 [facility] BILIRUBIN - PMC 0.60 0.00 - 1.00 06/18/2018 13:02 [facility] AST 63(H) 15 - 37 06/18/2018 13:02 [facility] ALT 58 12 - 78 06/18/2018 13:02 [facility] Alkaline Phosphatase 94 46 - 116 06/18/2018 13:02 EDT [facility] Total Protein 7.3 6.4 - 8.2 06/18/2018 13:02 [facility] Albumin 3.4 3.4 - 5.0 06/18/2018 13:02 [facility] GLOBULIN - PMC 3.9 06/18/2018 13:02 [facility] ALBUMIN/GLOBULIN RATIO - PMC 0.8 06/18/2018 13:02 [facility] 06/18/2018 12:1 4 EDT 06/18/2018 12:16 EDT Katia Stone PA-C CHEMISTRY & BLOOD GAS ORDERABLES [facility] documented in this encounter Visit Diagnoses Not on filedocumented in this encounter Care Teams Tool Lathe Operator Relationship Specialty Start Date End Date Katia Stone PA-C [address] [place] [phone] PCP - General 05/02/17 documented as of this encounter
--- OUTSIDE RECORDS SUMMARY | 2023-09-22 18:57 | XMS_ITS | Encounter Summary ---
Author Organization [facility] Address [address] [place] [address] Care Team Providers Care Octave Board Assembler Name Role Phone Katia Stone PA-C Primary Care Provider +1- [phone] Encounter Details Date Type Department Care Team (Late st Contact Info) Description 08/20/2018 Historical Results Only [facility] [address] [place], [place] [address] Katia Stone, MINGO [address] [place] [address] Social History Tobacco Use Types [...] HEPATIC & CMP COMBO,FASTING - PMC Routine 08/20/2018 11:48 EDT documented in this encounter Results * (ABNORMAL) HEPATIC & CMP COMBO,FASTING - PMC (08/20/2018 11:48 EDT) Sodium 121(L) 136 - 145 08/20/2018 12:38 [facility] Potassium 4.7 3.5 - 5.1 08/20/2018 12:38 [facility] Chloride 87(L) 96 - 107 08/20/2018 12:38 [facility] CO2 Total 28.2 21 - 32 08/20/2018 12:38 [facility] Anion Gap 5.8 08/20/2018 12:38 [facility] BUN 7 7 - 25 08/20/2018 12:38 [facility] Creatinine 0.59(L) 0.7 - 1.30 08/20/2018 12:38 [facility] Estimated GFR >60 >60 08/20/2018 12:49 [facility] Comment: EGFR UNITS: mL/min/1.73 m 2 CKD-EPI Equation used to calculate. Glucose 88 FASTIN -99 08/20/2018 12:38 [facility] Calcium 8.6 8.5 - 10.5 08/20/2018 12:38 [facility] CALCIUM,CORRECTE D - PMC 9.0 8.5 - 10.5 08/20/2018 12:38 [facility] BILIRUBIN - PMC 0.60 0.00 - 1.00 08/20/2018 12:38 [facility] AST 41(H) 15 - 37 08/20/2018 12:38 [facility] ALT 47 12 - 78 08/20/2018 12:38 [facility] Alkaline Phosphatase 86 46 - 116 08/20/2018 12:38 EDT [facility] Total Protein 7.5 6.4 - 8.2 08/20/2018 12:38 [facility] Albumin 3.5 3.4 - 5.0 08/20/2018 12:38 [facility] GLOBULIN - PMC 4.0 08/20/2018 12:38 [facility] ALBUMIN/GLOBULIN RATIO - PMC 0.8 08/20/2018 12:38 [facility] 08/20/2018 11:4 8 EDT 08/20/2018 12:07 EDT Katia Stone PA-C CHEMISTRY & BLOOD GAS ORDERABLES [facility] documented in this encounter Visit Diagnoses Not on filedocumented in this encounter Care Teams Octave Board Assembler Relationship Specialty Start Date End Date Katia Stone PA-C [address] [place] [address] PCP - General 05/02/17 documented as of this encounter
--- OUTSIDE RECORDS SUMMARY | 2023-09-22 18:57 | XMS_ITS | Encounter Summary ---
Author Organization [facility] Address [address] [place] [address] Care Team Providers Care Plastic Manager Name Role Phone Katia Stone PA-C Primary Care Provider +1- [phone] Encounter Details Date Type Department Care Team (Late st Contact Info) Description 12/12/2018 Results Only Imaging [facility] Radiology Results [address] [place] [address] Wang Vila MD [address] [facility], Level 1 [place] [address] Social History Tobacco Use Types [...] Associated Diagnosis Comments XR CHEST 2 VIEWS 12/12/2018 22:1 5 EDT documented in this encounter Results * XR CHEST 2 VIEWS (12/12/2018 22:15 EDT) Anatomical Region Laterality Modality Other 12/12/2018 22:1 5 EDT Narrative 12/12/2018 22:15 EDT ?[facility] ?[address] ?[place] [address] ?Diagnostic Imaging Report ? Signed ? Patient Name:ADOLPH,DAVID Martinez ? Date of :1950 ?MR Number:[id number] ? Age:68 ?Sex:M ? Category: CR ?Date of Exam:12/12/18 ? Procedure: CR: Chest; Frontal/LAT views ? [id number] ? Ordering Physician: Wang Vila MD ? CC: ?? Katia Mccallum ?? Gabriela Vila MD ? PROCEDURE INFORMATION: ?? Exam: XR Chest, 2 Views ?? Exam date and time: 12/12/2018 10:15 PM ?? Clinical history: 68 years old, male; Shortness of breath; Prior surgery; ?? Surgery date: 6+ months; Surgery type: Pacemaker; Additional info: SOB ? TECHNIQUE: ?? Imaging protocol: XR of the chest ?? Views: 2 views. ? COMPARISON: ?? CR Chest; two view PA/Lat 05/28/2018 12:59 AM ? FINDINGS: ?? Tubes, catheters and devices: There is a left chest wall cardiac dual lead ?? pacer in unchanged position. ?? Lungs: No pulmonary vascular congestion. There is mild left basilar ?? atelectasis. There is linear scarring in the upper right lung. There is right ?? lower lung patchy airspace opacity likely representing atelectasis and/or ?? pneumonia. ?? Pleural space: Bilateral small pleural effusions. No pneumothorax. There is ?? unchanged right pleural thickening and calcification. ?? Heart/Mediastinum: The cardiomediastinal silhouette is stable with top normal ?? to mildly enlarged cardiac size. ?? Bones/joints: No acute findings. ? IMPRESSION: ?? 1. Right lower lung patchy opacity likely representing atelectasis and/or ?? pneumonia. Linear atelectasis and/or scarring in the right upper lung and left ?? lower lung. ?? 2. Bilateral pleural effusions. Stable chronic right pleural thickening and ?? calcification. ? Report signed by: Alma Sherwood On 12/12/2018 ??23:27:20 ?? For any questions regarding this report, please contact the [facility] at [phone] ? Dictated by: Alma Sherwood DO ?D/ ?? 2215 ?? Transcribed by: GABE ?D/T: ? E-Signed by: Alma Sherwood DO ?D/ ?? 2327 ? Procedure Note Alma Sherwood MD - 01/09/2019 [facility]: [address] [address] Diagnostic Imaging Report Signed Patient Name:DAVID FARFAN FAccount Number:[id number] Date of :1950 MRNumber:[id number] Age:68 Sex:M Category: CR Date ofExam:12/12/18 Procedure: CR: Chest; Frontal/LAT viewsAccession: [id number] Ordering Physician: Wang Vila MD CC: Katia Mccallum Skylar MD PROCEDURE INFORMATION: Exam: XR Chest, 2 Views Exam date and time: 12/12/2018 10:15 PM Clinical history: 68 years old, male; Shortness of breath; Prior surgery; Surgery date: 6+ months; Surgery type: Pacemaker; Additional info: SOB TECHNIQUE: Imaging protocol: XR of the chest Views: 2 views. COMPARISON: CR Chest; two view PA/Lat 05/28/2018 12:59 AM FINDINGS: Tubes, catheters and devices: There is a left chest wall cardiac duallead pacer in unchanged position. Lungs: No pulmonary vascular congestion. There is mild left basilar atelectasis. There is linear scarring in the upper right lung. There isright lower lung patchy airspace opacity likely representing atelectasis and/or pneumonia. Pleural space: Bilateral small pleural effusions. No pneumothorax. Thereis unchanged right pleural thickening and calcification. Heart/Mediastinum: The cardiomediastinal silhouette is stable with topnormal to mildly enlarged cardiac size. Bones/joints: No acute findings. IMPRESSION: 1. Right lower lung patchy opacity likely representing atelectasis and/or pneumonia. Linear atelectasis and/or scarring in the right upper lung andleft lower lung. 2. Bilateral pleural effusions. Stable chronic right pleural thickeningand calcification. Report signed by: Alma Sherwood On 12/12/2018 23:27:20 For any questions regarding this report, please contact the [facility] at [phone] Dictated by: Alma Sherwood DOD/ 2210 Transcribed by: JOSEPH/T: E-Signed by: Alma Sherwood DOD/ 2916 Wang Vila MD IMG DIAGNOSTIC IMAGI NG ORDERABLES documented in this encounter Visit Diagnoses Not on filedocumented in this encounter Additional Health Concerns Infection Onset Date Last Indicated Resolved Time RSV 01/31/2022 01/31/2022 02/10/2022 22:1 5 EST documented as of this encounter Care Teams Plastic Manager Relationship Specialty Start Date End Date Katia Stone, MINGO [address] [place] [phone] PCP - General 05/02/17 documented as of this encounter
--- OUTSIDE RECORDS SUMMARY | 2023-09-22 18:57 | XMS_ITS | Encounter Summary ---
Author Organization [facility] Address [address] [place] [address] Care Team Providers Care Vehicle Return Associate Name Role Phone Katia Stone PA-C Primary Care Provider +1- [phone] Reason for Visit * Reason Onset Date Comments Medication Questions 07/16/2017 Encounter Details Date Type Department Care Team (Late st Contact Info) Description 07/16/2017 Telephone [facility] Cardiology - [place] [address] Caitie Atwood, TAIWO [address] [facility] [address] [place] [address] Medication Questions Social History Tobacco Use Types Packs/Day Years [...] Yessica expressed understanding and will complete refill. * Telephone Encounter - Pily Rucker - 07/16/2017 1413 EDT Reason for Call: Medication Questions Summary/Symptoms: Yessica just spoke with Caitie Atwood and had a further question about Colchicin and whether patient is supposed to still be taking twice daily or not Please call back as soon as possible Pily Rucker 07/16/2017 14:14 documented in this encounter Plan of Treatment Not on file documented as of this encounter Visit Diagnoses Not on filedocumented in this encounter Care Teams Vehicle Return Associate Relationship Specialty Start Date End Date Katia Stone, MINGO [address] [place] [phone] PCP - General 05/02/17 documented as of this encounter
--- OUTSIDE RECORDS SUMMARY | 2023-09-22 18:58 | XMS_ITS | Encounter Summary ---
Author Organization [facility] Address [address] [place] [address] Care Team Providers Care Elementary Science Teacher Name Role Phone Katia Stone PA-C Primary Care Provider +1- [phone] Reason for Visit * Reason Onset Date Comments Other 05/29/2017 Encounter Details Date Type Department Care Team (Late st Contact Info) Description 05/29/2017 Telephone [facility] Cardiology - [address] [place], [place] [phone] Daija Mariee, RN Other Social History Tobacco Use Types [...] No 05/21/2017 documented as of this encounter Miscellaneous Notes * Telephone Encounter - Daija Mariee RN - [...] NP. Requested call back with any questions * Telephone Encounter - Daija Mariee RN - 05/29/2017 1018 EDT Spoke with nurse Yessica at [facility] She spoke with pt today and he had 2 episodes of sharp pains that lasted seconds at the pacemaker site Yessica- RN would like a call back with plan She states pt has had a 11# weight gain, denies shortness of breath Daughter in law takes care of meds- [phone] Spoke with pt- he had 2 quick jabs over the area of pacemaker, lasted seconds, brought tears to hiseyes. Occurred while he was at rest. Breathing [...] on filedocumented in this encounter Care Teams Elementary Science Teacher Relationship Specialty Start Date End Date Katia Stone, MINGO [address] [place] [address] PCP - General 05/02/17 documented as of this encounter
--- OUTSIDE RECORDS SUMMARY | 2023-09-22 18:58 | XMS_ITS | Clinical Summary ---
Author Organization [facility] Address [facility] [place] [address] Care Team Providers Care Retail Stocker Name Role Phone Katia Stone Primary Care Provider Allergies No known active allergies Medications Medication Sig Dispensed Refills Start Date End Date Status spironolactone (Aldactone) 25 mg tablet Take 100 mg by mouth daily. 05/23/2022 Active metoprolol succinate XL (Toprol-XL) 200 mg ER 24 hr tablet Take 200 mg by mouth daily. 07/18/2022 Active benzonatate (Tessalon) 100 mg capsule Take 100 mg by mouth 2 times daily as needed. 05/23/2022 Active magnesium 250 mg tablet Take 250 mg by mouth daily. Active cetirizine (ZyrTEC) 10 mg chewable tablet Take 10 mg by mouth daily. Active acetaminophen (Tylenol) 500 mg tablet Take 1,000 mg by mouth 2 times daily. Active memantine (Namenda) 5 mg tablet Take 5 mg by mouth 2 times daily. 07/18/2022 Active sertraline (Zoloft) 25 mg tablet Take 25 mg by mouth daily. 07/18/2022 Active fentaNYL (Duragesic) 12 mcg/hr Patch 72 hr Change 1 patch on the skin every 3 days. 08/05/2022 Active melatonin 3 mg tablet Take 3 mg by mouth nightly. 08/15/2022 Active sucralfate (Carafate) 1 gram tablet Take 1 g by mouth 2 times daily. 07/31/2022 Active senna (Senokot) 8.6 mg tablet Take 2 tablets by mouth daily. Active pantoprazole EC (Protonix) [address] tablet Take 40 mg by mouth daily. 07/18/2022 Active Creon 24,000-76,000 -120,[address] capsule Take 1 capsule by mouth 3 times daily. 08/05/2022 Active b complex vitamins Tablet Take 1 tablet by mouth daily. Active albuteroL 90 mcg/actuation HFA Aerosol Inhaler Inhale 2 puffs into the lungs 3 times daily as needed. 04/11/2022 Active Active Problems Problem Noted Date Diagnosed Date Pacemaker - dual lead [employer] pacemake r 09/24/2022 Overview (09/24/2022): Ferryboat Operator Helper Model # Serial # Generator (New) [employer] [id number] Atrial Lead (New) [employer] [id number] [id number] RV Lead [employer] [id number] 09/23/2022 - RA lead fx and RV lead with insulation breach - both capped and abandoned with new atrial and ventricular leads Placed as well as PG replacement for DIONICIO Complete heart block 09/23/2022 Encounters Date Type Department Care Team Description 08/08/2023 10:00 AM EDT - 08/08/2023 11:59 PM EDT Hospital Encounter Non-[place] [address] Discharge Disposition: Home from Last 3 Months Social History Tobacco Use Types Packs/Day Years Used Date Smoking Tobacco: Never Smokeless Tobacco: Never Tobacco Cessation:Counseling Given: Not Answered Alcohol Use Standard Drinks/Week Comments Yes 14 (1 standard drink = 0.6 oz pu re alcohol) DH IPV Inpatient Questions Answer Date Recorded Does Anyone Try to Keep You From Having Contact with Others or Doing Things Outside Your Home? no 09/23/2022 Feels Threatened by Someone no 09/01 Feels Unsafe at Home or Work/School no 09/23/2022 Physical Signs of Abuse Present no 09/23/2022 Sex and Gender Information Value Date Recorded Sex Assigned at Not on file Gender Identity Not on file Sexual Orientation Not on file Last Filed Vital Signs Vital Sign Reading Time Taken Comments Blood Pressure 104/61 09/24/2022 11:36 AM EDT ra dial Pulse 60 09/24/2022 11:36 AM EDT Temperature 36.8 ??C (98.2 ??F) 09/24/2022 11:36 AM E DT Respiratory Rate 18 09/24/2022 11:36 AM EDT Oxygen Saturation 93% 09/24/2022 11:36 AM EDT Inhaled Oxygen Concentration - - Weight 108.4 kg (239 lb) 09/23/2022 12:26 PM EDT Height 180.3 cm (5' 11) 09/23/2022 6:06 PM EDT Body Mass Index 33.33 09/23/2022 12:26 PM EDT Plan of Treatment Upcoming Encounters Date Type Department Care Team (Late st Contact Info) Description 11/06/2023 10:00 AM EDT Hospital Encounter Non-[place] [phone] Arrived Health Maintenance Due Date Last Done Comments CT Colonography 1950 Colonoscopy 1950 Colorectal Cancer Screening 1950 FIT DNA 1950 FIT 1950 Sigmoidoscopy (10 year) with FIT yearly 1950 Sigmoidoscopy 1950 Pneumoccocal Vaccine: 65+ (1 of 2 - PCV) 1956 Hepatitis C Screening 1968 Lipid Screening 1968 Tdap adult 1969 Tetanus vaccine 1969 Zoster vaccine (1 of 2) 2000 Advance Directive 2005 Covid-19 Vaccine ( - season) 2022 Influenza (Flu) vaccine (1 o f 1 - Influenza standard series) 11/02/2023 Medical Devices Implanted Type Area Ferryboat Operator Helper Device Identifier Shelf Expiration Date Model / Serial / Lot Bsx: 7841: [id number] Implanted: by Dylan Story MD (Quantity not on file) Lead Heart [employer] 7841 / [id number] / Bsx: 7842: [id number] Implanted: by Dylan Story MD (Quantity not on file) Lead Heart [employer] 7842 / [id number] / Bsx: L311: [id number] Implanted: by Dylan Story MD (Quantity not on file) Pacemaker Chest Wall [employer] L311 / [id number] / Advance Directives * Attempt Cardiopulmonary Resuscitation - Inpatient (Latest Code Status on File) Date Activated Date Inactivated Comments 09/23/2022 4:32 PM 09/24/2022 3:26 PM Question Answer Comments Code Status decision made by: Patient * Suspended DNR Date Activated Date Inactivated Comments 07/10/2021 10:02 AM 07/11/2021 4:39 AM Question Answer Comments Code Status decision made by: Patient Content of discussion: full resusitation during periprocedureal period Care Teams Retail Stocker Relationship Specialty Start Date End Date Katia Stone PA [address] [place] [phone] PCP - General General Internal Medicine 11/10/18
--- OUTSIDE RECORDS SUMMARY | 2023-09-22 18:58 | XMS_ITS | Encounter Summary ---
Author Organization [facility] Address [address] [place] [address] Care Team Providers Care Senior Sql Database Developer Name Role Phone Katia Stone PA-C Primary Care Provider +1- [phone] Encounter Details Date Type Department Care Team (Late st Contact Info) Description 05/20/2017 Results [address] [facility] [phone] Unknown, Provider, Social History Tobacco Use Types [...] you have serious difficulty h earing? No 04/30/2017 Are you blind or do you have serious difficulty seeing, even when wearing glasses? No 04/30/2017 Do you have serious difficul ty walking or climbing stairs? (5 years old or older) No 04/30/2017 Do you have difficulty dress ing or bathing? (5 years old or older) No 04/30/2017 Because of a physical, menta l, or emotional condition, do you have difficulty doing errands alone such as visiting a doctor's office or shopping? (15 years old or older) No 04/30/2017 Cognitive Status Response Date of Assessm ent Because of a physical, menta l, or emotional condition, do you have serious difficulty concentrating, remembering, or making decisions? (5 years old or older) No 04/30/2017 documented as of this encounter Plan of Treatment Pending Results Name Type Priority Associated Diagnoses Date /Time OUTSIDE IMAGES - CT CHEST Imaging 05/20/2017 19:43 EDT documented as of this encounter Visit Diagnoses Not on filedocumented in this encounter Care Teams Senior Sql Database Developer Relationship Specialty Start Date End Date Katia Stone PA-C [address] [place] [phone] PCP - General 05/02/17 documented as of this encounter
--- OUTSIDE RECORDS SUMMARY | 2023-09-22 18:58 | XMS_ITS | Encounter Summary ---
Author Organization [facility] Address [address] [place] [address] Care Team Providers Care Perforating Machine Operator Name Role Phone Katia Stone PA-C Primary Care Provider +1- [phone] Reason for Visit * Reason Comments Shortness of Breath Encounter Details Date Type Department Care Team (Late st Contact Info) Description 06/11/2017 13:40 EDT Office Visit [facility] Cardiology [address] [phone] Tony Rosenberg MD [address] [place] [address] [place] [phone] SOB (shortness of breath) (Primary Dx) Social History Tobacco Use Types [...] No 05/21/2017 documented as of this encounter Progress Notes * Tony Rosenberg MD - 06/11/2017 1340 EDT Dictated. * Tony Rosenberg MD - 06/11/2017 0000 EDT [facility] CARDIOLOGY - [facility] PROGRESS / FOLLOWUP NOTE - 06/11/2017 PROBLEM LIST: 1. Third-degree heart block. a. Status post dual chamber pacemaker insertion. b. Pericardial effusion. c. Pacemaker generator lead repositioning and pericardiocentesis. 2. Large pleural effusions. 3. Hypertension. 4. Hyponatremia. SUBJECTIVE: Mr Mera was seen at the [facility] after his recent hospitalization at the [facility] for AV block. He had a [...] Blood pressure is 110/76, pulse is 100 and regular, respiratory rate is 20. The JVP is elevated. The carotid upstrokes are palpable. There are decreased breath sounds in each lung base. Cardiac exam: Tachycardic, normal S1, S2, soft systolicmurmur. There are no rubs or gallops appreciated. There is a pacemaker in the left chest. The abdomen is soft, nontender without organomegaly. Extremities have 1+ bipedal edema. Neurologic exam is grossly intact. DIAGNOSTIC DATA: A chest x-ray was performed at the outside clinic. It shows fairly substantial bilateral pleural effusions. Echocardiogram done in [facility] shows preserved LV systolic function. [...] needs both of his pleural effusions tapped for symptomatic relief. PLAN: I will arrange Mr Mera to be admitted to the [facility] tomorrow for bilateral thoracentesis. Tony Rosenberg MD 03 51 PM - Tony Rosenberg MD ln Dictation ID: [id number] cc: Shailesh Torres MD, [address] [address] Katia Mccallum PA-C, [place] [address] [address] [place] [address] documented in this encounter Plan of Treatment Not on file documented as of this encounter Visit Diagnoses Diagnosis SOB (shortness of breath)- Primary Shortness of breath documented in this encounter Care Teams Perforating Machine Operator Relationship Specialty Start Date End Date Katia Stone PA-C [facility] [address] [place] [phone] PCP - General 05/02/17 documented as of this encounter
--- OUTSIDE RECORDS SUMMARY | 2023-09-22 18:58 | XMS_ITS | Encounter Summary ---
Author Organization [facility] [place] Address [address] [place] [address] Care Team Providers Care Electrocardiogram Technician Name Role Phone Katia Stone PA-C Primary Care Provider [phone] Reason for Referral * Follow Up (3 - 10 Business Days) - New Request Specialty Diagnoses / Procedures Referred By Contac t Referred To Contact Diagnoses Hyponatremia Pericardial effusion Heart block Acute on chronic diastolic congestive heart failure (HCC-CMS) Acute pericarditis, unspecified type Vini Mathis MD [address] [place] [phone] Katia Stone PA-C [facility] [address] [place] [address] Referral ID Status Reason Start Date Expiration Date Visits Requested Visits Authorized [id number] New Request Continuity of Care 05/27/2017 1 1 Question Answer Reason for Request: post hosp f/u visit Reason for Visit * Reason Comments Chest Pain Patient arrives as [place] pan from [facility] for pleuritic chest pain and new diagnosis CHF after pacemaker placement at [facility] two weeks ago. Dyspnea with exertion, breath sounds course crackles. Alert and oriented. Encounter Details Date Type Department Care Team (Late st Contact Info) Description 05/20/2017 23:34 EDT - 05/27/2017 14:50 EDT Hospital Encounter [facility] Cardiac/Telemetry Unit [address] [place] [address] Laly Kim MD [address] [phone] Akash Reyes MD [address] [place] [phone] Andres Luis MD [address] [place] [phone] Tony Rosenberg MD [address] [place] [phone] Seng Brody Sa, MD [address] [place] [phone] Hyponatremia (Primary Dx); Pericardial effusion; Heart block; Acute on chronic diastolic congestive heart failure (CMS-HCC) (HCC-CMS); Acute pericarditis, unspecified type Discharge Disposition: Home or Self Care Social [...] No 05/21/2017 documented as of this encounter Discharge Diagnoses Diagnosis I30.9 Acute pericarditis, unspecified-I30.9[ICD-10-CM] T82.190A Other mechanical complication of cardiac electrode, initial encounter-T82.190A[ICD-10-CM] E87.1 HYPO-OSMOLALITY AND HYPONATREMIA[ICD-10-CM] I50.32 Chronic diastolic (congestive) heart failure-I50.32[ICD-10-CM] J98.11 Atelectasis-J98.11[ICD-10-CM] I11.0 Hypertensive heart disease with heart failure-I11.0[ICD-10-CM] I95.9 Hypotension, unspecified-I95.9[ICD-10-CM] Z95.0 Presence of cardiac pacemaker-Z95.0[ICD-10-CM] documented in this encounter Discharge Summaries * Vini Mathis MD - 05/21/2017 1159 EDT [...] Acute on chronic diastolic congestive heart failure ([facility]-HCC) 05/01/2017 05/27/2017 Hospital Course David Mera is [...] amlodipine and chlorthalidone. ?? He presented to [facility] ED 05/20 with orthopnea and cough, and CT chest showed pericardial effusion. He was transferred to [facility] ED for pericardiocentesis. In the ED he was hemodynamically stable, bedside echo showed no tampanode. He was hyponatremic to 116 on admission, likely hypervolemic hypo natremia. Pericardiocentesis done 05/21, 720 cc serosanguinous fluid drained. A drain was left in place until 05/23 and removed with follow up echo showing only minimal pericardial effusion, pt asymptomatic. Additionally 05/21 his PPM leads were adjusted, and CXR showed good placement. Nephrology was consulted and torsemide started for hypervolemic hyponatremia, with fluid restriction. His sodium gradually improved. After reports of pleuritic CP and dyspnea a CXR was obtained and showed nearly stable L pleural effusion with likely atelectasis. The Pt was initiated on ibuprofen and colchicine fortreatment of pericarditis and discharged in stable condition on RA after passing a walking O2 desattest.?? Allergies and Immunizations No Known Allergies There [...] Component Value Units Date/Time Respiratory Virus Detection [[id number]] Collected: 05/26/17 1157 Lab Status: Preliminary result Specimen: Nasopharynx Updated: 05/27/17 1425 Result No RSV, Influenza A, or Influenza B detected by PCR Result No Metapneumovirus detected by PCR. Result Delay in some virus(es) result(s), testing being repeated and/or confirmed. Anaerobe Culture/Smear (inc. aerobes), Fluid [[id number]] Collected: 05/23/17 0747 Lab Status: Preliminary result Specimen: FOSMIC from Pericardial Fluid Updated: 05/25/17 1146 Gram Smear Result Few Polys No bacteria seen Result No growth Fungus Culture/Smear, Other [[id number]] Collected: 05/23/17 0747 Lab Status: Preliminary result [...] 05/01/2017 Discharge Follow Up Appointments Scheduled with [facility] Upcoming Appointments Jun 04, 2017 16:00 EDT Post Hospital Visit with Tony Rosenberg MD [facility] Cardiology [facility] (--) [address] [facility] [address] Appointments Outside of [facility] We Will Schedule Follow-up appointments and procedures Amb Consult/Follow Up Primary Care Physician Reason for Request: post hosp f/u visit Authorizing Provider: Vini Mathis MD Additional Information: Cardiology follow up FriJune 04, 2017 at [address] Justin Rosenberg at the [facility]. You should be notified of appointment time. If you do not head by FriJune 01, please call [phone] to find out the time. Cardiology follow up on June 16, 2017 at 2:[address] Torres at the [facility] haspreviously scheduled. Clinic number [id number] Studies We Will Schedule Follow-up labs and [...] Vini Mathis MD Internal Medicine PGY-1 Pager: [phone] 05/27/2017 20:52 Associated attestation - Seng Brody Sa, MD - 05/30/2017 1206 EDT Attending Attestation: I saw and evaluated the patient 05/27. I discussed the case with the resident/JET DYEING MACHINE TENDER/fellow and agree with the findings and plan as documented above. Seng person Sa, MD Cardiac Electrophysiology documented in this encounter Discharge Instructions * Appointments* Coleen Yañez NP - 05/27/2017 10:25 EDT Cardiology follow up FriJune 04, 2017 at [address] Justin Rosenberg at the [facility]. You should be notified of appointment time. If you do not head by FriJune 01, please call [phone] to find out the time. Cardiology follow up on June 16, 2017 at 2:[address] Torres at the [facility] haspreviously scheduled. Clinic number [id number] * Discharge Instr - Other Orders* Melida Natarajan RN - 05/21/2017 8:14 EDT Remember the [...] of breath, or increase leg swelling. * Discharge Instr - DME* Zee You RN - 05/24/2017 7:54 EDT Remember the [...] Care Everywhere. * HEART FAILURE: AVOIDING TRIGGERS (KYRGYZ) documented in this encounter Medications at Time of Discharge Medication Sig Dispensed Refills Start Date End Date acetaminophen (TYLENOL) 500 mg tablet Take 1,000 mg by mouth 2 times daily. colchicine (COLCRYS) 0.6 mg tablet Take 1 Tab by mouth 2 times daily. 60 Tab 05/27/2017 torsemide (DEMADEX) 20 mg tablet Take 2 Tabs by mouth daily. 60 Tab 2 05/27/2017 ibuprofen (MOTRIN) 600 mg tablet Take 1 Tab by mouth 3 times daily for 14 days. 42 Tab 05/27/2017 06/10/2017 documented as of this encounter Ordered Prescriptions Prescription Sig Dispensed Refills Start Date End Da te torsemide (DEMADEX) 20 mg tablet Take 2 Tabs by mouth daily. 60 Tab 2 05/27/2017 colchicine (COLCRYS) 0.6 mg tablet Take 1 Tab by mouth 2 times daily. 60 Tab 05/27/2017 ibuprofen (MOTRIN) 600 mg tablet Take 1 Tab by mouth 3 times daily for 14 days. 42 Tab 05/27/2017 06/10/2017 documented in this encounter Discharge Disposition Disposition Code Departure Means Destination Home or Self Care documented in this encounter Progress Notes * Desi Villatoro RN - 05/27/2017 1450 EDT CM Discharge Note: D/C home on 05/27 without home health services. Rachna Villatoro RN #[id number] * Vini Mathis MD - 05/26/2017 0629 EDT Cardiology Progress note Service Date: 05/26/2017 Admit Date: 05/20/2017 23:34 Reason for Admission: 66 y.o. male admitted with a chief complaint of cough, orthopnea and now witha principal diagnosis of pericardial effusion. Events/ Procedures in the last 24 Hours: No acute events Subjective/Objective Subjective This AM complaining of SOB that started last PM. Still having productive cough. Endorsed later in the day a pleuritic sternal/chest pressure. He denies nausea, vomiting or diarrhea, no fever or chills. Voiding without difficulty. Ambulating some. Review of Systems [...] knees MSK: Normal bulk and tone. 5/5 patch machine operator strength SKIN: No lesions, bruises, or [...] s/p pericardiocentesis and pacer lead adjustment. SOB todayof potentially multifactorial etiology: CXR w/ slightly increased L pleural effusion and lung collapse/atelectasis. Suspect acute on chronic HF, vs. Atelectasis 2/2 splinting from pericarditis pain. Low suspicion at present for acute PE given lack of hypoxia, tachypnea. Pericardial effusion: Most likely related to recent PPM insertion, Lyme AB and TSH negative at lastadmission. S/p pericardiocentesis and pacer lead adjustment 05/21 [...] initially hypertensive, but now normo-hypotensive. - Holding SYSTEMS SOFTWARE MANAGER lisinopril ?? Chronic diastolic heart failure: Volume [...] 05/26/17. I discussed the case with the resident/JET DYEING MACHINE TENDER/fellow and agree with the findings and plan as documented above. Seng person Sa, MD Cardiac Electrophysiology * William Salamanca RT - 05/25/2017 1329 EDT [...] cough because of pain RT Wayne 05/25/17 * Gisella Christian - 05/25/2017 1300 EDT Cardiology Progress note Service Date: 05/25/2017 Admit Date: 05/20/2017 23:34 Reason for Admission: 66 y.o. male admitted with a chief complaint of cough, orthopnea and now witha principal diagnosis of pericardial effusion. Events/ Procedures [...] knees MSK: Normal bulk and tone. 5/5 patch machine operator strength SKIN: No lesions, bruises, or [...] insertion, Lyme AB and TSH negative at lastadmission. S/p pericardiocentesis and pacer lead adjustment 05/21 [...] initially hypertensive, but now normo-hypotensive. - Holding SYSTEMS SOFTWARE MANAGER lisinopril ?? Chronic diastolic heart failure: currently volume overloaded. Needs diuresis, cautious in setting of normotension. - Holding Lasix/chlorthalidone - Torsemide 40 mg BID PO as above - Strict I&O - 1.5 L fluid restriction as above - Daily weights - Daily BUN, Cr VTE Prophylaxis Held d/t bloody pericentesis drain Discharge Plan Uncertain at this time Luciano Christian MD 05/25/17 * Tony Rosenberg MD - 05/24/2017 1003 EDT Cardiology Progress note Service Date: 05/24/2017 Admit Date: 05/20/2017 23:34 Reason for Admission: 66 y.o. male admitted with a chief complaint of cough, orthopnea and now witha principal diagnosis of pericardial effusion. Events/ Procedures [...] knees MSK: Normal bulk and tone. 5/5 patch machine operator strength SKIN: No lesions, bruises, or [...] initially hypertensive, but now normo-hypotensive. - Holding SYSTEMS SOFTWARE MANAGER lisinopril ?? Chronic diastolic heart failure: currently volume overloaded. Needs diuresis, cautious in setting of normotension. - Holding Lasix/chlorthalidone - Torsemide 40 mg QD PO as above - Strict I&O - 1.5 L fluid restriction as above - Daily weights - Daily BUN, Cr VTE Prophylaxis Held d/t bloody pericentesis drain Discharge Plan Uncertain at this time- may be able to dc godwin Landry M.D., PGY-1 Internal Medicine Resident Pager [phone] 05/24/2017 10:04 Attestation statement: Supervising Physician I saw and examined Mr. Mera on Friday, May 24, 2017. I agree with the history, physical and the assessment plans as outlined above. * Shakira Tony Martinez MD - 05/23/2017 0911 EDT Cardiology Progress note Service Date: 05/23/2017 Admit Date: 05/20/2017 23:34 Reason for Admission: 66 y.o. male admitted with a chief complaint of cough, orthopnea and now witha principal diagnosis of pericardial effusion. Events/ Procedures [...] knees MSK: Normal bulk and tone. 5/5 patch machine operator strength SKIN: No lesions, bruises, or [...] CXR: pacer leads placed appropriately, Echo with small pericardial effusion Telemetry: yes, paced rhythm ECG: Unchanged [...] initially hypertensive, but now normo-hypotensive. - Holding SYSTEMS SOFTWARE MANAGER lisinopril ?? Chronic diastolic heart failure: currently volume overloaded. Needs diuresis, cautious in setting of normotension. - Holding Lasix/chlorthalidone - Torsemide 40 mg BID PO as above - Strict I&O - 1.5 L fluid restriction as above - Daily weights - Daily BUN, Cr VTE Prophylaxis Held d/t bloody pericentesis drain Discharge Plan Uncertain at this time- may be able to dc or Friday Jayne Landry M.D., PGY-1 Internal Medicine Resident Pager [phone] 05/23/2017 9:11 Attestation statement: Supervising Physician. I saw and examined Mr. Mera on morning rounds with the cardiac electrophysiology service on May 23, 2017. I agree with the history, physical and the assessment plans as outlined above. * Tony Rosenberg MD - 05/22/2017 0850 EDT Cardiology Progress note Service Date: 05/22/2017 Admit Date: 05/20/2017 23:34 Reason for Admission: 66 y.o. male admitted with a chief complaint of cough, orthopnea and now witha principal diagnosis of pericardial effusion. Events/ Procedures in the last 24 Hours: Pericardiocentesis 05/21 PM, hypotensive to 80s-110s overnight but only when sleeping. Subjective/Objective Subjective Mr. Mera reports persistent cough this morning and some pain with coughing, but otherwise that the procedure went well. He denies nausea, vomiting or diarrhea, no fever or chills. His orthopnea hasimproved since the procedure. Review of Systems Pertinent [...] S2. Pericardial drain with 400 cc serosanguinous fluid. PPM site erythematous, tender, no fluctuance ABDOMEN: Soft. Non-tender and non-distended. No masses. + bowel sounds EXTREMITIES: Warm, well perfused, radial and pedal pulses intact. 3+ pitting edema to knees MSK: Normal bulk and tone. 5/5 patch machine operator strength SKIN: No lesions, bruises, or [...] initially hypertensive, but now normo-hypotensive. - Holding SYSTEMS SOFTWARE MANAGER lisinopril ?? Chronic diastolic heart failure: currently volume overloaded. Needs diuresis, cautious in setting of normotension. - Holding Lasix/chlorthalidone - Torsemide 10 mg PO as aobve - Strict I&O - 1.5 L fluid restriction as above - Daily weights - Daily BUN, Cr VTE Prophylaxis Held d/t bloody pericentesis drain Discharge Plan Uncertain at this time Jayne Landry M.D., PGY-1 Internal Medicine Resident Pager [phone] 05/22/2017 8:50 Attestation statement: I saw and examined the patient with the resident/fellow. I agree with the findings and plan of care documented in the resident's/fellow's note. * Desi Villatoro RN - 05/21/2017 1312 EDT [...] Chart: Yes, previous copy on file @ [facility] DIRECTIVES FOR FINANCES: TRANSPORTATION: Transportation: Family CULTURAL, EVANGELICAL and/or LANGUAGE factors affecting health care/discharge planning: [...] for those at HIGH MODERATE RISK: Bring risk factors to attention of team to be addressed [...] AID - [address] - [place], [place] - [address] [facility] [phone] [facility] - [facility] [place] - [address] [facility] [address] [facility] [id number] Home Health: Other: POST HOSPITAL TRANSITION PLAN: Plan d/c to his son, Catarina, house in [place] Desi Villatoro RN 05/21/2017 13:12 * Desi Villatoro RN - 05/21/2017 0948 EDT 05/21: Met with patient. Dr. Rosenberg is at the bedside. Plan will be pericardiocentesis and reposition of pacer lead. I will follow up with patient later today. Desi Villatoro RN [facility] #[id number] * Jayne Landry MD - 05/21/2017 0753 EDT Cardiology Progress note Service Date: 05/21/2017 Admit Date: 05/20/2017 23:17 Reason for Admission: 66 y.o. male admitted with a chief complaint of cough, orthopnea and now witha principal diagnosis of pericardial effusion. Events/ Procedures in the last 24 Hours: Admitted, no acute events Subjective/Objective Subjective Mr. Mera reports orthopnea but denies chest pain, pressure, or SOB when sitting up. He also reports a cough, and is not sure if his legs are swollen more so than usual. He does report sticking to afluid restriction at home and decreased urination as [...] knees MSK: Normal bulk and tone. 5/5 patch machine operator strength SKIN: No lesions, bruises, or [...] will hold lisinopril for now. - Holding SYSTEMS SOFTWARE MANAGER lisinopril ?? Chronic diastolic heart failure: currently volume overloaded. Needs diuresis after resolution of pericardial effusion. - Holding Lasix/chlorthalidone in setting of pericardial effusion - Strict I&O - 1.2 L fluid restriction as above - Daily weights - Daily BUN, Cr VTE Prophylaxis Held pending pericardiocentesis Discharge Plan Uncertain at this time Jayne Landry M.D., PGY-1 Internal Medicine Resident Pager [phone] 05/21/2017 8:01 * Ester Yanes MD - 05/21/2017 0641 EDT PATIENT CONSENT TO CARDIOVASCULAR CATHETERIZATION OR INTERVENTION: I, Ester Yanes MD, have explained the risks and benefits of cardiac catheterization and/or intervention to the patient (or responsible republican) and have answered the patient's (or responsible republican's) questions. To the best of my knowledge, the patient (or responsible republican) has been adequately informed. The patient (or responsible republican) has consented to the interventional cardiac procedure. As part of the consent we reviewed that, like surgical procedures, interventional procedures require aggressive short term support to determine the potential benefits of the procedures. For this reason, the patient (or responsible republican) has agreed to remain FULL CODE for a minimum of 48 hours aft er the procedure. Ester Yanes MD Job Superintendent PGY-5 05/20/2017 23:30 documented in this encounter H&P Notes * Maria Antonia Zimmerman MD - 05/20/2017 2241 [...] He underwent a pacemaker on 05/02/17 for completeheart block, Lyme antibody negative. During that admission he was started on amlodipine and chlorthalidone. He was doing well after discharge for about 3-4 days, but fairly quickly after discharge started todevelop a cough which has been worsening ever since. He says it is productive of frothy sputum, andis associated with shortness of breath. He is [...] why this happened. He has had lower extremity swelling since discharge but actually thinks the swelling [...] smoker, 1-2 beers 1-2x/week, lives alone in [place] Allergies: Reviewed No Known Allergies Exam: General [...] will hold lisinopril for now. - Holding SYSTEMS SOFTWARE MANAGER lisinopril Chronic diastolic heart failure: with some [...] MD documented in this encounter Procedure Notes * Seng Rand MD - 05/21/20172001 EDT Bedside Procedure Note Procedures Pericardiocentesis, Pericardial drain placement, lead extraction and replacemtn and revision No cx Well tolerated See post op orders and cardiology tab for details Seng Rand MD 05/21/2017 20:02 documented in this encounter Consult Notes * Vladimir Crowe MD - 05/25/2017 1145 EDT NEPHROLOGY CONSULT PROGRESS NOTE Admit Date: 05/20/2017 Hospital Day: LOS: 4 days Date of Service: 05/25/2017 Attending Physician: Tony Rosenberg MD Reason for Consult: Hypervolemic Hyponatremia 24-hour events/Subjective: Patient on fluid restriction 1.5 L a day, complain of being thirsty, butunderstands the rational of limiting liquids. No headache, [...] outpatient, avoid thiazide diuretics Vladimir Crowe MD [facility] Transplant Personnel Generalist Manager Sales Management Trainee of Transplant Programs 05/25/2017 11:46 * Vladimir Crowe MD - 05/24/2017 1008 EDT NEPHROLOGY CONSULT PROGRESS NOTE Admit Date: 05/20/2017 Hospital Day: LOS: 3 days Date of Service: 05/24/2017 Attending Physician: Tony Rosenberg MD Reason for Consult: Hyponatremia 24-hour events/Subjective: Patient on fluid restriction 1.5 L a day, complain of being thirsty, butunderstands the rational of limiting liquids. No headache, [...] current medications, laboratory and imaging studies, and communication with the patient, family, and primary care givers. I agree with the findings and plan of care as documented in the note below and I have edited the assessment and plan. Vladimir Crowe MD [facility] Transplant Personnel Generalist Manager Sales Management Trainee of Transplant Programs 05/24/2017 12:32 * Elliot Fairchild MD - 05/23/2017 1520 EDT [...] during this hospitalization: ECHO Elliot Fairchild MD 05/23/2017 15:20 * Elliot Fairchild MD - 05/21/2017 1327 EDT [...] He underwent a pacemaker on 05/02/17 for completeheart block, Lyme antibody negative. During that admission he was started on amlodipine and chlorthalidone which was changed to Furosemide for presumed CHF but patient does not recall any details. Hehas had no chest pain, dizziness/lightheadedness, palpitations, fevers, chills, nausea/vomiting. Heis staying at his son's house and has not been out much recently. A ECHO done yesterday does not show any tamponade like pericardial effusion and systolic LV function is normal. During the last admission his serum [...] 13:27 documented in this encounter ED Notes * Freddy Elizalde RN - 05/20/2017 2355 EDT ORDERS RECEIVED, NS UP INFUSING, URINE SAMPLE COLLECTED, SENT TO LAB, WAITING RESULTS * Seng Deleon - 05/20/2017 2317 EDT Seng Bran, notified Dr. KIM of SODIUM 116 on 05/20/2017 at 23:17. * Freddy Elizalde RN - 05/20/2017 2257 EDT REPORT RECEIVED FROM LILLIE WINSTON, WILL ASSUME CARE OF PT AT THIS TIME. PT IN ER ROOM 8, ON HYDRATE CONTROL TENDER, NIBP, AND SPO2, ASSESSMENT NOTED, * Tony Navarro - 05/20/2017 2247 EDT Blood drawn via saline lock per protocol, tiger tube(s) sent to lab per order. * Laly Kim MD - 05/20/2017 2224 EDT DOS: 05/20/2017 Chief Complaint Patient presents with ??? Chest Pain Patient arrives as transfer from [facility] for pleuritic chest pain and new diagnosis CHF after pacemaker placement at [facility] two weeks ago. Dyspnea with exertion, breath sounds course crackles. Alert and oriented. HPI HPI Comments: I, Deana Bingham, am scribing for Laly Kim, * while he/she is personallyperforming the service. Deana Bingham 05/20/2017 22:25 David Mera is a 66 y.o. male with a history of heart block AV third degree, HTN, acute on chronic CHF, who presents as a transfer from [place] with pericardial effusion. Pt had pacemaker placed 10days ago. He reports that he developed a persistent cough for the past 7 days. Pt denies weakness, p alpitations, abdominal pain, chest pain, or SOB. Per records at OSH: Chest CT scan which revealed alarge pericardial effusion. Small bilateral pleural effusions. Cardiomegaly.EKG [...] appears to be a good tracing. Attending wood turner not available for acute interpretation. Radiology orders: [...] for problems Not Given Final Accession number [id number] Final CREATININE, URINE RANDOM SODIUM, URINE RANDOM OSMOLALITY, URINE Patient had labs that were reviewed independently by myself, significant for sodium of 116, hemoglobin of 11.5, CO2 35, Troopnin 0.026, BNP of 2900, urine creatinine of 43, and urine sodium of 18. Relevant Data Procedures ED COURSE A medical screening exam was performed. The patient is a 66 y.o. male, who presents with pericardial effusion. Pt had pacemaker placed 10 days ago. He reports that he developed a cough 7 days ago, which has been worsening. Pt denies weakness, palpitations, abdominal pain, chest pain, or SOB. Exam un remarkable. Labs diagnostic for hyponatremia. Spot urine creatinine = 43, spot urine sodium = 18. Findings suggestive of hypovolemic etiology. Bedside ultrasound diagnostic for a large pericardial effusion without evidence of tamponade physiology. hydrated with 1 L NS bolus. Evaluated in the ED by the supervisor painting department. ASSESSMENT AND PLAN Final diagnoses: Hyponatremia Pericardial effusion DISPOSITION: Admitted Discussed case with cardiology resident/fellow (). Not evaluated by admitting attending in ED. Admitted to telemetry for further evaluation and definitive management. Condition on admission: Serious.Pain level at time of admission: 0 (). PCP: Katia Mccallum [facility] Number of Diagnoses or Management Options [...] obtain history from someone other than the patient:yes Obtain history from someone other than the [...] work, treatment, procedures, and medical decision making. documented in this encounter Miscellaneous Notes * Plan of Care - Rupert Earl RN [...] further questions. Rupert Earl RN 05/27/2017 13:56 * Plan of Care - Desi Villatoro RN - 05/27/2017 1024 EDT 05/27/17 1023 Medicare IM Notice: IM notice status Patient received notification verbally and in writing while in hospital. IM notice given at discharge? Yes * Plan of Care - Rupert Earl RN - 05/26/2017 1332 EDT Problem: Daily Care Plan Goals Goal: Care Plan Documentation Outcome: Ongoing 05/26/17 0829 05/26/17 1059 Care Plan Focus Area of Focus Circulatory Status -- Goal This Shift -- VSS Data: Assumed care at 07:00. Pt 100% V paced, room air, reporting increased SOB this am. Continuingto diurese. Action: Urine & sputum samples collected. Flu swab sent. Continuing to educate & encourage acapella respiratory treatment. Bedside echo & CXR today Response: Pt resting in recliner most of the day. Declines pain but continues to endorse SOB. Rupert Earl RN 05/26/2017 13:28 * Plan of Care - Jaspal Grossman - [...] swelling, I & O, and lung sounds. Jaspalakilah Reyesne 05/26/2017 10:59 * Plan of Care - Omayra Farley RN - 05/26/2017 0552 EDT Problem: Daily Care Plan Goals Goal: Care Plan Documentation Data: assumed care of patient at 1900. Pt admitted with cough/SOB, pericardial effusion with drain,discontinued 05/23. Pt denies SOB/pain. VSS. Tele - V paced. Hyponatremia on admission - 116, now 130. Action: assessment as charted. Fluid restriction of 1500cc/day. Strict I & Os. Pt voiding in urinal for accurate output. Response: pt resting well overnight. Lytes q 12 hour to monitor Na. Omayra Farley RN 05/26/2017 5:49 * Plan of Care - Rupert Earl RN [...] sample sent today, educating on fluid restriction &s/s of fluid overload. Tylenol for sharp pain with some movements & use of acapella resp. treatment Response: Pt resting throughout the day, intermittent pain in left outer chest wall, MD notified. Adhering to care plan & fluid restriction. Will continue to monitor. Rupert Earl RN 05/25/2017 14:36 * Plan of Care - Sigrid Gordon RN - 05/25/2017 0561 EDT Problem: Daily Care Plan Goals Goal: [...] flowsheets. Meds administered as ordered, see eMAR. Educated patient about IS use. Ambulated pt in hallway. Monitored I&Os. ?? Response: Pt up in chair. States he is feeling better. Encouraged a good night's sleep. Pt sleepingwill ctm. Sigrid Gordon RN 05/25/2017 5:26 * Plan of Care - Cici Tapia RN - 05/24/2017 4674 EDT Problem: Daily Care Plan Goals Goal: [...] independent. Admitted for SOB 04/04 to pericardial effusion.Pericardial drain removed 05/23, site is c/d/i. PPM [...] per protocol. Cici Tapia RN 05/24/2017 17:33 * Plan of Care - Meena Lugo RN [...] flowsheets. Meds administered as ordered, see eMAR. Educated patient about IS use. Ambulated pt in hallway. Monitored I&Os. Response: Pt refusing to use IS. Tolerated ambulation well: O2 sat 91-94 on RA, P: 80-100 bpm during ambulation. Pt states he's feeling good. Denies further needs at this time. Will continue to monitor. MEENA LUGO RN 05/24/2017 0:43 * Plan of Care - Pierre Serrano RN - 05/23/2017 1834 EDT Problem: Daily Care Plan Goals Goal: Care Plan Documentation Outcome: Ongoing 05/23/17 1656 Care Plan Focus Area of Focus Mobility Goal This Shift Patient will ambulate Data: - Assumed care of patient ~ 1530. Plan for patient to ambulate in hallway to assess patient'ssymptoms following drain removal and small re accumulation of effusion. Patient denies SOB at rest.Drain site clean dry and intact. Action: - Unable to ambulate with patient so far this shift due to time constraints. Monitored drain site. Monitored for SOB. Response: - Patient remains free of SOB. Drain site remains clean dry and intact. Will continue to monitor and ambulate with patient if time allows. Pierre Serrano RN 05/23/2017 18:30 * Plan of Care - RestrepoIrena - 05/23/2017 0954 EDT Problem: Daily Care Plan Goals Goal: Care Plan Documentation Outcome: Ongoing 05/23/17 0946 Care Plan Focus Area of Focus Mobility Patient will ambulate 100 ft in hallway Data: 66 year old male - Admitted for pericardial effusion s/p pericardiocentesis. Pericardial chest tube drain removed at 0800. Rates pain 0 on a numerical 0-10 scale. OOB independently to bathroom,dyspnea on exertion - 02 97% RA. Continues on fluid restrictions of 1500 mL. Action: Gauze/Tegaderm dry and intact to chest laceration. Mobility encouraged in hallway. Education provided about the importance of using IS. 345 mL intake on this students time. Response: OOB to bathroom x2. Patient paced in bedroom 20 ft. Irena Restrepo 05/23/2017 9:47 * Plan of Care - Meena Lugo RN [...] a coarse cough. SBP in the 90s otherVSS on RA. 100% V-paced on tele. Pericardial drain draining bloody fluid Action: VS and assessment documented in flowsheets. meds administered as ordered. Scheduled Toradoladministered for pain. Monitored I&Os. Response: SBP in the 80s (MD aware). Pt asymptomatic. 100% V-paced with HR in the 110s (MD aware). Pt denies further needs at this time. Will continue to monitor. MEENA LUGO, RN 05/23/2017 0:42 * Plan of Care - Cici Oconnell - [...] orders, ctm assess vs, pericardial drain output * Plan of Care - Rox Valdivia RN - 05/21/2017 2336 EDT Problem: Daily Care Plan Goals Goal: Care Plan Documentation Data: Assumed care of pt at 1900. Pt admitted for pericardial effusion s/p PPM placement. Pt now s/p pericardiocentesis. Pericardial chest drain in place c/d/i, draining sanguinous fluid. Pt on bedrest until drain is removed. 100% V- paced on tele, HR 100s. BPs consistently 80s/60s, pt asymptomatic.Pt stating pain 6/10. Action: MD notified of BPs and arrived at bedside. Meds given per MAY, assessment docuemented. Response: Pt sleeping, BPs still 80s/60s, MD aware. Pt states pain is reduced. Will continue to monitor. ROX VALDIVIA RN 05/21/2017 23:24 * Plan of Care - Erika Ruiz - 05/21/2017 1059 EDT Problem: Daily Care Plan Goals Goal: Care Plan Documentation 05/21/17 0738 Care Plan Focus Area of Focus Respiratory Goal This Shift pt will use IS 5x per hour Data: Pt is 66 yo male admitted for increasing SOB and pleuritic chest pain. Transferred from [facility]. Dx of peridcardial effusion, HTN, CHF, and hyponatremia. Pacemaker placed 2 weeks ago. Awaiting pericardial TAP post Echocardiogram. Action: Pt given IS spirometer. Explained importance of IS to help with lung expansion and prevention of atelectsis. Pt demonstrated understanding through demonstration of IS use. Needs encouragementand support. Pt walked 100 ft in hallway. Response: Pt O2 sat 99% on RA. Post ambulation, HR was 120's and DOBBS. Pt needs HOB elevated to helpwith breathing difficulties. Erika Ruiz 05/21/2017 10:45 documented in this encounter Plan of Treatment Scheduled Orders Name Type Priority Associated Diagnoses Orde r Schedule CYTOPATHOLOGY/CYTOLO GY FLUID SAMPLE Pathology Routine One Time for 1 Occurrences starting 05/21/2017 until 05/21/2017 Scheduled Referrals Name Type Priority Associated Diagnoses Orde r Schedule AMB CONS/FOLLOW UP PRIMARY CARE PHYSICIAN Outpatient Referral Routine Hyponatremia Pericardial effusion Heart block Acute on chronic diastolic congestive heart failure (CMS-HCC) ([facility]) Acute pericarditis, unspecified type Ordered: 05/27/2017 documented as of this encounter Procedures Procedure Name Priority Date/Time Associated Diagnosis Comments ECG REPORT - SCANNED 06/02/2017 8:40 EDT ECG REPORT - SCANNED 06/01/2017 12:46 EDT ECG REPORT - SCANNED 05/30/2017 11:59 EDT ECG REPORT - SCANNED 05/30/2017 11:17 EDT ECG REPORT - SCANNED 05/30/2017 11:17 EDT ECG REPORT - SCANNED 05/28/2017 10:02 EDT ECG REPORT - SCANNED 05/27/2017 13:22 EDT EKG 12-LEAD Routine 05/27/2017 7:37 EDT COMPLETE BLOOD COUNT Routine 05/27/2017 5:57 EDT BUN Routine 05/27/2017 5:57 EDT MAGNESIUM Routine 05/27/2017 5:57 EDT CREATININE Routine 05/27/2017 5:57 EDT ELECTROLYTES Routine 05/27/2017 5:57 EDT AIRWAY CLEARANCE THERAPY Routine 05/26/2017 21:01 EDT NT PRO BNP Routine 05/26/2017 17:55 EDT ELECTROLYTES Routine 05/26/2017 17:55 EDT INPATIENT ADD-ON STAT 05/26/2017 15:2 0 EDT AIRWAY CLEARANCE THERAPY Routine 05/26/2017 14:44 EDT INCENTIVE SPIROMETRY RT Routine 05/27/19 18 14:44 EDT INCENTIVE SPIROMETRY RT Routine 05/27/19 18 14:44 EDT INCENTIVE SPIROMETRY RT Routine 05/27/19 18 14:44 EDT STREPTOCOCCUS PNEUMONIAE ANTIGEN, URINE Routine 05/26/2017 14:04 EDT LEGIONELLA ANTIGEN DETECTION, URINE Routine 05/26/2017 14:04 EDT ECG REPORT - SCANNED 05/26/2017 12:53 EDT CHEST PA AND LATERAL STAT 05/26/2017 12:30 EDT BACTERIAL CULTURE/SMEAR, RESPIRATORY Routine 05/26/2017 12:14 EDT RESPIRATORY VIRUS DETECTION Routine 05/26/2017 11:57 EDT ECHOCARDIOGRAM LIMITED Routine 8 11:16 EDT EKG 12-LEAD Routine 05/26/2017 7:29 EDT COMPLETE BLOOD COUNT Routine 05/26/2017 5:57 EDT BUN Routine 05/26/2017 5:57 EDT MAGNESIUM Routine 05/26/2017 5:57 EDT CREATININE Routine 05/26/2017 5:57 EDT ELECTROLYTES Routine 05/26/2017 5:57 EDT ELECTROLYTES Routine 05/25/2017 17:58 EDT URINE ELECTROLYTES Routine 05/25/2017 14 :29 EDT OSMOLALITY, URINE Routine 05/25/2017 14: 29 EDT AIRWAY CLEARANCE THERAPY Routine 05/25/2017 11:51 EDT EKG 12-LEAD Routine 05/25/2017 7:40 EDT COMPLETE BLOOD COUNT Routine 05/25/2017 5:59 EDT BUN Routine 05/25/2017 5:59 EDT MAGNESIUM Routine 05/25/2017 5:59 EDT CREATININE Routine 05/25/2017 5:59 EDT ELECTROLYTES Routine 05/25/2017 5:59 EDT ELECTROLYTES Routine 05/24/2017 18:02 EDT EKG 12-LEAD Routine 05/24/2017 7:22 EDT COMPLETE BLOOD COUNT Routine 05/24/2017 5:51 EDT BUN Routine 05/24/2017 5:51 EDT MAGNESIUM Routine 05/24/2017 5:51 EDT CREATININE Routine 05/24/2017 5:51 EDT ELECTROLYTES Routine 05/24/2017 5:51 EDT ELECTROLYTES Routine 05/23/2017 21:40 EDT ECG REPORT - SCANNED 05/23/2017 15:08 EDT ELECTROLYTES Routine 05/23/2017 12:16 EDT ECG REPORT - SCANNED 05/23/2017 11:51 EDT ECHOCARDIOGRAM LIMITED Routine 8 10:59 EDT ECG REPORT - SCANNED 05/23/2017 10:42 EDT HEMATOCRIT, BODY FLUID Routine 8 7:47 EDT ALBUMIN, FLUID Routine 05/23/2017 7:47 EDT ANAEROBE CULTURE/SMEAR(INC. AEROBES), FLUID Routine 05/23/2017 7:47 EDT FUNGUS CULTURE/SMEAR Routine 05/23/2017 7:47 EDT FLUID DIFFERENTIAL Routine 05/23/2017 7: 47 EDT FLUID CELL COUNT Routine 05/23/2017 7:47 EDT TOTAL PROTEIN, FLUID Routine 05/23/2017 7:47 EDT LDH, FLUID Routine 05/23/2017 7:47 EDT GLUCOSE, FLUID Routine 05/23/2017 7:47 EDT EKG 12-LEAD Routine 05/23/2017 7:20 EDT COMPLETE BLOOD COUNT Routine 05/23/2017 6:42 EDT BUN Routine 05/23/2017 6:42 EDT MAGNESIUM Routine 05/23/2017 6:42 EDT CREATININE Routine 05/23/2017 6:42 EDT ELECTROLYTES Routine 05/23/2017 6:42 EDT CYTOPATHOLOGY Routine 05/23/2017 0:00 EDT ELECTROLYTES Routine 05/22/2017 23:40 EDT ELECTROLYTES Routine 05/22/2017 18:36 EDT CHEST PA AND LATERAL Routine 05/22/2017 14:43 EDT ELECTROLYTES Routine 05/22/2017 12:36 EDT BACTERIAL CULTURE, BLOOD Routine 05/22/2017 9:58 EDT BACTERIAL CULTURE, BLOOD Routine 05/22/2017 9:58 EDT EKG 12-LEAD Routine 05/22/2017 8:04 EDT COMPLETE BLOOD COUNT Routine 05/22/2017 4:09 EDT BUN Routine 05/22/2017 4:09 EDT MAGNESIUM Routine 05/22/2017 4:09 EDT CREATININE Routine 05/22/2017 4:09 EDT ELECTROLYTES Routine 05/22/2017 4:09 EDT ELECTROLYTES Routine 05/22/2017 0:23 EDT EKG 12-LEAD Routine 05/21/2017 20:29 EDT PORTABLE CHEST 1 VIEW Routine 05/21/2017 20:25 EDT ELECTROLYTES Routine 05/21/2017 20:08 EDT PERMANENT PACEMAKER PROCEDURE Routine 05/21/2017 19:42 EDT INPATIENT ADD-ON Routine 05/21/2017 18:2 0 EDT PROTEIN, TOTAL, RANDOM, URINE Routine 05/21/2017 18:20 EDT CREATININE, URINE RANDOM Routine 05/21/2017 18:20 EDT ECHOCARDIOGRAM LIMITED Routine 8 18:19 EDT TSH Routine 05/21/2017 14:02 EDT T4 FREE Routine 05/21/2017 14:02 EDT ELECTROLYTES Routine 05/21/2017 14:02 EDT ECHOCARDIOGRAM STAT 05/21/2017 10:30 EDT ELECTROLYTES Routine 05/21/2017 9:55 EDT EKG 12-LEAD Routine 05/21/2017 7:12 EDT INPATIENT ADD-ON Routine 05/21/2017 6:55 EDT INPATIENT ADD-ON Routine 05/21/2017 6:40 EDT PROTIME Routine 05/21/2017 5:57 EDT COMPLETE BLOOD COUNT AND DIFFERENTIAL Routine 05/21/2017 5:57 EDT HIV 1/2 ANTIGEN AND ANTIBODY, 4TH GENERATION Routine 05/21/2017 5:57 EDT BUN Routine 05/21/2017 5:57 EDT ALT Routine 05/21/2017 5:57 EDT AST Routine 05/21/2017 5:57 EDT ALKALINE PHOSPHATASE Routine 05/21/2017 5:57 EDT MAGNESIUM Routine 05/21/2017 5:57 EDT CREATININE Routine 05/21/2017 5:57 EDT BILIRUBIN, TOTAL Routine 05/21/2017 5:57 EDT ALBUMIN Routine 05/21/2017 5:57 EDT ELECTROLYTES Routine 05/21/2017 5:57 EDT ELECTROLYTES STAT 05/21/2017 3:28 EDT EKG 12-LEAD STAT 05/21/2017 1:25 EDT INPATIENT ADD-ON Routine 05/21/2017 0:00 EDT SODIUM, URINE RANDOM STAT 05/20/2017 23:45 EDT CREATININE, URINE RANDOM STAT 05/20/2017 23:45 EDT OSMOLALITY, URINE Routine 05/20/2017 23: 45 EDT POCT US CARDIAC STAT 05/20/2017 22:45 EDT BASIC METABOLIC PANEL (BMP) STAT 05/20/2017 22:40 EDT documented in this encounter Results * ECG REPORT - SCANNED (06/02/2017 8:40 EDT) 06/02/2017 8:40 EDT Scan 2 Car Electronics Installer PROCEDURE/MINOR VELMA GICAL ORDERABLES * ECG REPORT - SCANNED (06/01/2017 12:46 EDT) 06/01/2017 12:4 6 EDT Scan 2 Car Electronics Installer PROCEDURE/MINOR VELMA GICAL ORDERABLES * ECG REPORT - SCANNED (05/30/2017 11:59 EDT) 05/30/2017 11:5 9 EDT Scan 2 Car Electronics Installer PROCEDURE/MINOR VELMA GICAL ORDERABLES * ECG REPORT - SCANNED (05/30/2017 11:17 EDT) 05/30/2017 11:1 7 EDT Scan 2 Car Electronics Installer PROCEDURE/MINOR VELMA GICAL ORDERABLES * ECG REPORT - SCANNED (05/30/2017 11:17 EDT) 05/30/2017 11:1 7 EDT Scan 2 Car Electronics Installer PROCEDURE/MINOR VELMA GICAL ORDERABLES * ECG REPORT - SCANNED (05/28/2017 10:02 EDT) 05/28/2017 10:0 2 EDT Scan 2 Car Electronics Installer PROCEDURE/MINOR VELMA GICAL ORDERABLES * ECG REPORT - SCANNED (05/27/2017 13:22 EDT) 05/27/2017 13:2 2 EDT Scan 2 Car Electronics Installer PROCEDURE/MINOR VELMA GICAL ORDERABLES * EKG 12-LEAD (05/27/2017 7:37 EDT) 05/27/2017 7:37 EDT Narrative [facility] EKG - 06/01/2017 12:41 EDT ? [facility] ? Test Date: ?2017-05-27 Pat Name: ? DAVID MERA ?Department: ?? JAME Chao ? Room: ? MW531 Gender: ? 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 [id number] : ?1950 ? Requested By: PRADIP MONET Order Number: [id number] ? Martha OAKES: ?? PIERRE RUBIO MD ? Measurements Intervals ?[place] ? Rate: ? 69 ? P: ?23 MS: ? 175 ?QRS: ?-58 QRSD: ? 193 ?T: ?189 QT: ? 528 ? QTc: ?568 ? Interpretive Statements SINUS RHYTHM WITH ATRIAL TRACKING and VENTRICULAR PACING Compared to ECG 05/26/2017 07:29:50 No significant changes I reviewed the tracing and have either agreed or edited the findings in this report. Electronically Signed On 06-01-17 12:41:22 EDT by PIERRE RUBIO MD. Procedure Note Pierre Rubio MD - 06/01/2017 [facility] Test Date: 2017-05-27 Pat Name: DAVID HULLEY Department: [place] [address] Room: [facility] Gender: M Food Stand Manager: [id number] : 1950 Requested By: PRADIP MONET Order Number: [id number] Reading MD: PIERRE RUBIO MD Measurements Intervals [place] Rate: 69 P: 23 MS: 175 QRS: -58 QRSD: 193 T: 189 QT: 528 QTc: 568 Interpretive Statements SINUS RHYTHM WITH ATRIAL TRACKING and VENTRICULAR PACING Compared to ECG 05/26/2017 07:29:50 No significant changes I reviewed the tracing and have either agreed or edited the findings inthis report. Electronically Signed On 06-01-17 12:41:22 EDT by PIERRE YEBOAH. Maria Antonia Zimmerman MD CARDIAC ECG ORDERABL ES Performing Organization Address [facility] de Phone Number [facility] EKG * (ABNORMAL) ELECTROLYTES (05/27/2017 5:57 EDT) Sodium 129(L) 136 - 145 mEq/L 05/27/2017 6:41 EDT [facility] Potassium 3.9 3.5 - 5.0 mEq/L 05/27/2017 6:41 EDT [facility] Chloride 87(L) 96 - 110 mEq/L 05/27/2017 6:41 EDT [facility] CO2 33(H) 22 - 32 mEq/L 05/27/2017 6:41 EDT [facility] Blood specimen (specimen) BLOOD SPECIMEN / Unknown 05/27/2017 5:57 EDT 05/27/2017 6:14 EDT Jayne Pozo MD CHEMISTRY & BLOOD GA S ORDERABLES Performing Organization Address [facility] de Phone Number [facility] [address] [place] [address] * BUN (05/27/2017 5:57 EDT) BUN 13 10 - 26 mg/dl 05/27/2017 6:41 EDT [facility] Blood specimen (specimen) BLOOD SPECIMEN / Unknown 05/27/2017 5:57 EDT 05/27/2017 6:14 EDT Jayne Pozo MD CHEMISTRY & BLOOD GA S ORDERABLES Performing Organization Address [facility] de Phone Number [facility] [address] [place] [address] * MAGNESIUM (05/27/2017 5:57 EDT) Magnesium 1.9 1.7 - 2.8 mg/dl 05/27/2017 6:41 EDT [facility] Blood specimen (specimen) BLOOD SPECIMEN / Unknown 05/27/2017 5:57 EDT 05/27/2017 6:14 EDT Jayne Pozo MD CHEMISTRY & BLOOD GA S ORDERABLES Performing Organization Address [facility] Co de Phone Number [facility] [address] [place] [address] * (ABNORMAL) CREATININE (05/27/2017 5:57 EDT) Creatinine 0.63(L) 0.66 - 1.25 mg/dl 05/27/2017 6:41 EDT [facility] GFR, Calculated 103 >60 ml/min/1.7 3m2 05/27/2017 6:41 EDT [facility] Comment: eGFR calculated using CKD-EPI equation for non Americans. Multiply eGFR by 1.16 for Americans. Blood specimen (specimen) BLOOD SPECIMEN / Unknown 05/27/2017 5:57 EDT 05/27/2017 6:14 EDT Jayne Pozo MD CHEMISTRY & BLOOD GA S ORDERABLES Performing Organization Address [facility] Co de Phone Number [facility] [address] [place] [address] * (ABNORMAL) HEMAGRAM (05/27/2017 5:57 EDT) WBC 6.74 4.0 - 10.4 K/cmm 05/27/2017 6:28 [facility] RBC 3.43(L) 4.36 - 5.78 M/cmm 05/27/2017 6:28 [facility] Hemoglobin 11.3(L) 13.8 - 17.3 gm/dl 05/27/2017 6:28 [facility] HCT 32.2(L) 39.5 - 50.2 % 05/27/2017 6:28 [facility] MCV 94 81 - 95 fl 05/27/2017 6:28 [facility] MCH 32.9 27.6 - 33.0 pg 05/27/2017 6:28 [facility] MCHC 35.1 32.8 - 36.4 gm/dl 05/27/2017 6:28 [facility] RDW-CV 11.3 <14.2 % 05/27/2017 6:28 EDT [facility] RDW-SD 38.4 <46.0 fl 05/27/2017 6:28 EDT [facility] PLT 308 141 - 377 K/cmm 05/27/2017 6:28 EDT [facility] MPV 10.4 9.5 - 12.7 fl 05/27/2017 6:28 EDT [facility] Blood specimen (specimen) BLOOD SPECIMEN / Unknown 05/27/2017 5:57 EDT 05/27/2017 6:14 EDT Jayne Pozo MD HEMATOLOGY & PF4 ORD ERABLES Performing Organization Address [facility] Co de Phone Number [facility] [address] [place] [address] * (ABNORMAL) NT PRO BNP (05/26/2017 17:55 EDT) NT Pro BNP 2,710(H) <300 pg/ml 05/26/2017 18:55 EDT [facility] Comment: Slight hemolysis Results may [...] 89% and 72% for acute congestive failure. Blood specimen (specimen) BLOOD SPECIMEN / Unknown 05/26/2017 17:55 EDT 05/26/2017 18:18 EDT Seng person Sa, MD CHEMISTRY & BLO OD GAS ORDERABLES Performing Organization Address [facility] Co de Phone Number [facility] [address] [place] [address] * (ABNORMAL) ELECTROLYTES (05/26/2017 17:55 EDT) Sodium 129(L) 136 - 145 mEq/L 05/26/2017 18:44 EDT [facility] Comment:Slight hemolysis Potassium 4.0 3.5 - 5.0 mEq/L 05/26/2017 18:44 EDT [facility] Comment: Slight hemolysis Hemolysis may elevate potassium result. Chloride 84(L) 96 - 110 mEq/L 05/26/2017 18:44 EDT [facility] Comment:Slight hemolysis CO2 35(H) 22 - 32 mEq/L 05/26/2017 18:44 EDT [facility] Comment:Slight hemolysis Blood specimen (specimen) BLOOD SPECIMEN / Unknown 05/26/2017 17:55 EDT 05/26/2017 18:18 EDT Jayne Pozo MD CHEMISTRY & BLOOD GA S ORDERABLES Performing Organization Address [facility] Co de Phone Number [facility] [address] [place] [address] * INPATIENT ADD-ON (05/26/2017 15:20 EDT) Tests to be added BNP 05/26/2017 15:19 EDT [facility] Number for problems [id number] 05/26/2017 15:32 EDT [facility] Accession number CALLED M5 WITH INABILITY TO PERFORM ADD ON DUE TO NO SUITABLE SAMPLE [id number] 05/26/2017 15:32 EDT [facility] TOPOGRAPHY UNKNOWN / Unknown 05/26/2017 15:20 EDT 05/26/2017 15:31 EDT Vini Mathis MD HEMATOLOGY & PF4 OR DERABLES Performing Organization Address [facility] Co de Phone Number [facility] [address] [place] [address] * LEGIONELLA ANTIGEN DETECTION, URINE (05/26/2017 14:04 EDT) Result No Legionella pneumophila serogroup 1 antigen detected. 05/26/2017 15:30 EDT [facility] Specimen of unknown material (specimen) URINE / Unknown 05/26/2017 14:04 EDT 05/26/2017 14:42 EDT Comment:Clean catch specimen Сергей Damico MD MICROBIOLOGY - GENER AL ORDERABLES Performing Organization Address [facility]/ZIP Co de Phone Number [facility] [address] [place] [address] * STREPTOCOCCUS PNEUMONIAE ANTIGEN, URINE (05/26/2017 14:04 EDT) Result No Strep pneumoniae antigen detected. 05/26/2017 15:29 EDT [facility] Specimen of unknown material (specimen) URINE / Unknown 05/26/2017 14:04 EDT 05/26/2017 14:42 EDT Comment:Clean catch specimen Сергей Damico MD MICROBIOLOGY - GENER AL ORDERABLES Performing Organization Address [facility] Co de Phone Number [facility] [address] [place] [address] * ECG REPORT - SCANNED (05/26/2017 12:53 EDT) 05/26/2017 12:5 3 EDT Scan 2 Car Electronics Installer PROCEDURE/MINOR VELMA GICAL ORDERABLES * CHEST PA AND LATERAL (05/26/2017 12:30 EDT) Anatomical Region Laterality Modality Other 05/26/2017 12:3 0 EDT 05/26/2017 14:17 EDT Narrative 05/26/2017 14:17 EDT CHEST PA AND LATERAL ??05/26/2017 12:30 PM Clinical History/Comments: Pt with subjective SOB despite improvement in pericardial effusion COMPARISON: Chest radiographs 05/21/2017 and 05/22/2017. Outside chest CT 05/20/2017. TECHNIQUE: Two views of the chest were performed. ??Dual-energy technique with reconstructions in soft tissue and bone windows was used. FINDINGS: Lines/tubes: The pericardial drain has been removed. Soft tissues: ??A left chest wall pacer generator is present with its leads terminating in the right ventricle and right atrium. Bones: Degenerative changes are present in both AC joints, left worse than right. Cardiac and mediastinal contours: The cardiac silhouette is enlarged. Lungs: There has been worsening of the dense left retrocardiac opacity. Bandlike opacities in the right lower lobe are present. ?? Pleura/diaphragms: The right pleura is again noted to be densely calcified. There is a moderate to large left pleural effusion. IMPRESSION: 1. ??Complete or near complete complete collapse of the left lower lobe. 2. ??Moderate to large left pleural effusion. I have personally reviewed the images and the above interpretation and agree with the findings. Procedure Note Pablito Ayala MD - 05/26/2017 CHEST PA AND LATERAL 05/26/2017 12:30 PM Clinical History/Comments: Pt with subjective SOB despite improvement in pericardial effusion COMPARISON: Chest radiographs 05/21/2017 and 05/22/2017. Outside chest CT 05/20/2017. TECHNIQUE: Two views of the chest were performed. Dual-energy technique with reconstructions in soft tissue and bone windows was used. FINDINGS: Lines/tubes: The pericardial drain has been removed. Soft tissues: A left chest wall pacer generator is present with its leads terminating in the right ventricle and right atrium. Bones: Degenerative changes are present in both AC joints, left worse than right. Cardiac and mediastinal contours: The cardiac silhouette is enlarged. Lungs: There has been worsening of the dense left retrocardiac opacity. Bandlike opacities in the right lower lobe are present. Pleura/diaphragms: The right pleura is again noted to be densely calcified. There is a moderate to large left pleural effusion. IMPRESSION: 1. Complete or near complete complete collapse of the left lower lobe. 2. Moderate to large left pleural effusion. I have personally reviewed the images and the above interpretation and agree with the findings. Сергей Damico MD [facility] ORDERABLES * BACTERIAL CULTURE/SMEAR, RESPIRATORY (05/26/2017 12:14 EDT) Gram Smear Result Mod Polys 05/26/2017 14:30 EDT [facility] Gram Smear Result Mod Squamous epithelial cells 05/26/2017 14:30 EDT [facility] Gram Smear Result Mod Mixed gram positive and gram negative organisms 05/26/2017 14:30 EDT [facility] Gram Smear Result Smear suggests contamination with saliva. ??Please submit additional specimen if clinically indicated. 05/26/2017 14:30 EDT [facility] Result See gram smear results. 05/26/2017 14:30 EDT [facility] Result Credit Issued 05/26/2017 14:30 EDT [facility] Specimen of unknown material (specimen) SPUTUM / Unknown 05/26/2017 12:14 EDT 05/26/2017 13:50 EDT Сергей Damico MD MICROBIOLOGY - GENER AL ORDERABLES Performing Organization Address [facility] Co de Phone Number [facility] [address] [place] [address] * RESPIRATORY VIRUS DETECTION (05/26/2017 11:57 EDT) Result No RSV, Influenza A, or Influenza B detected by PCR 05/28/2017 14:18 EDT [facility] Result No Metapneumovirus detected by PCR. 05/28/2017 14:18 EDT [facility] Result No Parainfluenza Virus Type 1,2 or 3 detected by PCR. This assay may have decrease sensitivity for Parainfluenza Virus Type 3. 05/28/2017 14:18 EDT [facility] NASOPHARYNGEAL STRUCTURE / Unknown 05/26/2017 11:57 EDT 05/26/2017 12:19 EDT Сергей Damico MD MICROBIOLOGY - GENER AL ORDERABLES Performing Organization Address City/[facility]/ZIP Co de Phone Number [facility] [address] [place] [address] * ECHOCARDIOGRAM LIMITED (05/26/2017 11:16 EDT) Anatomical Region Laterality Modality Other 05/26/2017 11:1 6 EDT Narrative 05/26/2017 11:25 EDT *Interpreting Group:* *[facility]* [address] [place] [address] Date of study: 05/26/2017 Transthoracic Echocardiography M-mode, limited 2D, limited spectral Doppler, and color Doppler *STUDY CONCLUSIONS* Summary: 1. Left ventricle: The cavity size was normal. Wall thickness was ?? normal. Systolic function was normal. Wall motion was normal; there ?? were no regional wall motion abnormalities. 2. Right ventricle: The cavity size was [...] Rosenberg MD ORDERING ?Tony Rosenberg MD PERFORMING ??[facility], REFERRING ?? Katia Mccallum *PROCEDURE DATA* Procedure information: ??The patient was identified by two identifiers. This study was interpreted by [facility]. Pertinent images and digital data are archived for permanent storage and are available for subsequent review. ??Study status: Routine. Transthoracic echocardiography. ??M-mode, limited 2D, limited spectral Doppler, and color Doppler. A Transthoracic Echocardiogram was performed. Scanning was performed from the parasternal, apical, and subcostal acoustic windows. Images were obtained using an Epiq 10 cardiac ultrasound machine. Image quality was suboptimal. The study was technically limited due to body habitus. ??Study completion: ??The patient tolerated the procedure well. *INDICATIONS AND HISTORY* Indications: ?? Pericardial Effusion (I31.3). *CARDIAC ANATOMY* Left ventricle: ??The cavity size was normal. Wall thickness was normal. Systolic function was normal. Wall motion was normal; there were no regional wall motion abnormalities. Right ventricle: ??The cavity size was normal. Systolic function was normal. Pericardium: ??A trivial pericardial effusion was identified. I have personally reviewed the images and have reviewed and edited the reported findings. Electronically signed by Bobby Andrade MD 05/26/2017 11:25 Procedure Note Bobby Andrade MD - 05/26/2017 *Interpreting Group:* *[facility]* [address] [place] [address] Date of study: 05/26/2017 Transthoracic Echocardiography M-mode, limited 2D, limited spectral Doppler, and color Doppler *STUDY CONCLUSIONS* Summary: 1. Left ventricle: The cavity size was normal. Wall thickness was normal. Systolic function was normal. Wall motion was normal; there were no regional wall motion abnormalities. 2. Right ventricle: The cavity size was [...] *PROCEDURE DATA* Procedure information: The patient was identified by two identifiers. This study was interpreted by [facility]. Pertinent images and digital data are archived for permanent storage and are available for subsequent review. Study status: Routine. Transthoracic echocardiography. M-mode, limited 2D, limited spectral Doppler, and color Doppler. A Transthoracic Echocardiogram was performed. Scanning was performed from the parasternal, apical, and subcostal acoustic windows. Images were obtained using an Epiq 10 cardiac ultrasound machine. Image quality was suboptimal. The study was technically limited due to body habitus. Study completion: The patient tolerated the procedure well. *INDICATIONS AND HISTORY* Indications: Pericardial Effusion (I31.3). *CARDIAC ANATOMY* Left ventricle: The cavity size was normal. Wall thickness was normal. Systolic function was normal. Wall motion was normal; there were no regional wall motion abnormalities. Right ventricle: The cavity size was normal. Systolic function was normal. Pericardium: A trivial pericardial effusion was identified. I have personally reviewed the images and have reviewed and edited the reported findings. Electronically signed by Bobby Andrade MD 05/26/2017 11:25 Tony Rosenberg MD CARDIAC ECHO ORDERABLES * EKG 12-LEAD (05/26/2017 7:29 EDT) 05/26/2017 7:29 EDT [facility] EKG - 05/27/2017 13:18 EDT ? [facility] ? Test Date: ?2017-05-26 Pat Name: ? DAVID MERA ?Department: ?? [facility] [address] ? Room: ? MW531 Gender: ? 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 [id number] : ?1950 ? Requested By: PRADIP MONET Order Number: [id number] ? Reading MD: ?? PETER ROLF MD ? Measurements Intervals ?[place] ? Rate: ? 73 ? P: ? MS: ? 0 ?QRS: ?-45 QRSD: ? 192 ?T: ?176 QT: ? 536 ? QTc: ?594 ? Interpretive Statements ELECTRONIC VENTRICULAR PACEMAKER ABNORMAL RHYTHM ECG Automated Interpretation. ??Provider Interpretation to follow. Compared to ECG 05/25/2017 07:40:16 No significant changes I reviewed the tracing and have either agreed or edited the findings in this report. Electronically Signed On 05-27-17 13:18:21 EDT by LALY DELA CRUZ MD. Procedure Note Laly Dela Cruz MD - 05/27/2017 [facility] Test Date: 2017-05-26 Pat Name: DAVID MERA Department: [place] [address] Room: [facility] Gender: M Food Stand Manager: [id number] : 1950 Requested By: PRADIP MONET Order Number: [id number] Reading MD: LALY DELA CRUZ MD Measurements Intervals [place] Rate: 73 P: MS: 0 QRS: -45 QRSD: 192 T: 176 QT: 536 QTc: 594 Interpretive Statements ELECTRONIC VENTRICULAR PACEMAKER ABNORMAL RHYTHM ECG Automated Interpretation. Provider Interpretation to follow. Compared to ECG 05/25/2017 07:40:16 No significant changes I reviewed the tracing and have either agreed or edited the findings inthis report. Electronically Signed On 05-27-17 13:18:21 EDT by LALY STEVENSON. Maria Antonia Zimmerman MD CARDIAC ECG ORDERABL ES [facility] * (ABNORMAL) ELECTROLYTES (05/26/2017 5:57 EDT) Sodium 128(L) 136 - 145 mEq/L 05/26/2017 6:54 EDT [facility] Potassium 3.7 3.5 - 5.0 mEq/L 05/26/2017 6:54 EDT [facility] Chloride 85(L) 96 - 110 mEq/L 05/26/2017 6:54 EDT [facility] CO2 35(H) 22 - 32 mEq/L 05/26/2017 6:54 EDT [facility] Blood specimen (specimen) BLOOD SPECIMEN / Unknown 05/26/2017 5:57 EDT 05/26/2017 6:26 EDT Jayne Pozo MD CHEMISTRY & BLOOD GA S ORDERABLES Performing Organization Address City/[facility]/ZIP Co de Phone Number [facility] [address] [place] [address] * (ABNORMAL) BUN (05/26/2017 5:57 EDT) BUN 9(L) 10 - 26 mg/dl 05/26/2017 6:54 EDT [facility] Blood specimen (specimen) BLOOD SPECIMEN / Unknown 05/26/2017 5:57 EDT 05/26/2017 6:26 EDT Jayne Pozo MD CHEMISTRY & BLOOD GA S ORDERABLES Performing Organization Address City/[facility]/ZIP Co de Phone Number [facility] [address] [place] [address] * MAGNESIUM (05/26/2017 5:57 EDT) Magnesium 1.8 1.7 - 2.8 mg/dl 05/26/2017 6:54 EDT [facility] Blood specimen (specimen) BLOOD SPECIMEN / Unknown 05/26/2017 5:57 EDT 05/26/2017 6:26 EDT Jayne Pozo MD CHEMISTRY & BLOOD GA S ORDERABLES Performing Organization Address City/[facility] Co de Phone Number [facility] [address] [place] [address] * (ABNORMAL) CREATININE (05/26/2017 5:57 EDT) Creatinine 0.53(L) 0.66 - 1.25 mg/dl 05/26/2017 6:54 EDT [facility] GFR, Calculated 110 >60 ml/min/1.7 3m2 05/26/2017 6:54 [facility] Comment: eGFR calculated using CKD-EPI equation for non Americans. Multiply eGFR by 1.16 for Americans. Blood specimen (specimen) BLOOD SPECIMEN / Unknown 05/26/2017 5:57 EDT 05/26/2017 6:26 EDT Jayne Pozo MD CHEMISTRY & BLOOD GA S ORDERABLES [facility] [address] [place] [address] * (ABNORMAL) HEMAGRAM (05/26/2017 5:57 EDT) WBC 7.06 4.0 - 10.4 K/cmm 05/26/2017 6:33 [facility] RBC 3.20(L) 4.36 - 5.78 M/cmm 05/26/2017 6:33 [facility] Hemoglobin 10.7(L) 13.8 - 17.3 gm/dl 05/26/2017 6:33 [facility] HCT 30.0(L) 39.5 - 50.2 % 05/26/2017 6:33 [facility] MCV 94 81 - 95 fl 05/26/2017 6:33 [facility] MCH 33.4(H) 27.6 - 33.0 pg 05/26/2017 6:33 [facility] MCHC 35.7 32.8 - 36.4 gm/dl 05/26/2017 6:33 [facility] RDW-CV 11.3 <14.2 % 05/26/2017 6:33 [facility] RDW-SD 38.4 <46.0 fl 05/26/2017 6:33 [facility] PLT 306 141 - 377 K/cmm 05/26/2017 6:33 [facility] MPV 10.3 9.5 - 12.7 fl 05/26/2017 6:33 [facility] Blood specimen (specimen) BLOOD SPECIMEN / Unknown 05/26/2017 5:57 EDT 05/26/2017 6:26 EDT Jayne Pozo MD HEMATOLOGY & PF4 ORD ERABLES Performing Organization Address [facility]/ZIP Co de Phone Number [facility] [address] [place] [address] * (ABNORMAL) ELECTROLYTES (05/25/2017 17:58 EDT) Sodium 130(L) 136 - 145 mEq/L 05/25/2017 18:29 EDT [facility] Potassium 3.6 3.5 - 5.0 mEq/L 05/25/2017 18:29 EDT [facility] Chloride 83(L) 96 - 110 mEq/L 05/25/2017 18:29 EDT [facility] CO2 36(H) 22 - 32 mEq/L 05/25/2017 18:29 EDT [facility] Blood specimen (specimen) BLOOD SPECIMEN / Unknown 05/25/2017 17:58 EDT 05/25/2017 18:03 EDT Jayne Pozo MD CHEMISTRY & BLOOD GA S ORDERABLES Performing Organization Address [facility] Co de Phone Number [facility] [address] [place] [address] * OSMOLALITY, URINE (05/25/2017 14:29 EDT) Osmolality, Ur 284 150 - 1,150 mos/kg 05/25/2017 15:18 EDT [facility] Urine specimen (specimen) URINE / Unknown 05/25/2017 14:29 EDT 05/25/2017 14:37 EDT Gisella Christian MD URINALYSIS ORDER IRWIN Performing Organization Address [facility]/ZIP Co de Phone Number [facility] [address] [place] [address] * URINE ELECTROLYTES (05/25/2017 14:29 EDT) Chloride, Ur 41 mEq/L 05/25/2017 15:10 EDT [facility] Comment: Reference Range: No reference range available Potassium, Urine 31.1 mEq/L 05/25/2017 15:10 EDT [facility] Sodium, Ur 81.0 mEq/L 05/25/2017 15:10 EDT [facility] Urine specimen (specimen) URINE / Unknown 05/25/2017 14:29 EDT 05/25/2017 14:37 EDT Gisella Christian MD URINALYSIS ORDER IRWIN [facility] [address] [place] [address] * EKG 12-LEAD (05/25/2017 7:40 EDT) 05/25/2017 7:40 EDT Narrative [facility] EKG - 06/02/2017 8:35 EDT ? [facility] ? Test Date: ?2017-05-25 Pat Name: ? DAVID MERA ?Department: ?? [facility] [address] ? Room: ? MW531 Gender: ? 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 [id number] : ?1950 ? Requested By: PRADIP MARIA ANTONIA Order Number: [id number] ? Reading MD: ?? SENG PERSON SA, MD ? Measurements Intervals ?[place] ? Rate: ? 76 ? P: ?35 MS: ? 218 ?QRS: ?-47 QRSD: ? 188 ?T: ?193 QT: ? 520 ? QTc: ?588 ? Interpretive Statements ELECTRONIC VENTRICULAR PACEMAKER sinus rhyhtm ABNORMAL RHYTHM ECG Automated Interpretation. ??Provider Interpretation to follow. Compared to ECG 05/24/2017 07:22:06 No significant changes I reviewed the tracing and have either agreed or edited the findings in this report. Electronically Signed On 06-02-17 08:35:11 EDT by SENG PERSON SA, MD. Procedure Note Seng Brody Sa, MD - 06/02/2017 [facility] Test Date: 2017-05-25 Pat Name: DAVID MERA Department: [place] [address] Room: [facility] Gender: M Food Stand Manager: [id number] : 1950 Requested By: PRADIP MONET Order Number: [id number] Reading MD: SENG ROBLEDO Measurements Intervals [place] Rate: 76 P: 35 MS: 218 QRS: -47 QRSD: 188 T: 193 QT: 520 QTc: 588 Interpretive Statements ELECTRONIC VENTRICULAR PACEMAKER sinus rhyhtm ABNORMAL RHYTHM ECG Automated Interpretation. Provider Interpretation to follow. Compared to ECG 05/24/2017 07:22:06 No significant changes I reviewed the tracing and have either agreed or edited the findings inthis report. Electronically Signed On 06-02-17 08:35:11 EDT by SENG WRIGHT MD. Maria Antonia Zimmerman MD CARDIAC ECG ORDERABL ES Performing Organization Address City/[facility]/ZIP Co de Phone Number [facility] EKG * (ABNORMAL) ELECTROLYTES (05/25/2017 5:59 EDT) Sodium 127(L) 136 - 145 mEq/L 05/25/2017 7:02 EDT [facility] Potassium 3.7 3.5 - 5.0 mEq/L 05/25/2017 7:02 EDT [facility] Chloride 85(L) 96 - 110 mEq/L 05/25/2017 7:02 EDT [facility] CO2 36(H) 22 - 32 mEq/L 05/25/2017 7:02 EDT [facility] Blood specimen (specimen) BLOOD SPECIMEN / Unknown 05/25/2017 5:59 EDT 05/25/2017 6:23 EDT Jayne Pozo MD CHEMISTRY & BLOOD GA S ORDERABLES [facility] [address] [place] [address] * (ABNORMAL) BUN (05/25/2017 5:59 EDT) BUN 9(L) 10 - 26 mg/dl 05/25/2017 7:02 EDT [facility] Blood specimen (specimen) BLOOD SPECIMEN / Unknown 05/25/2017 5:59 EDT 05/25/2017 6:23 EDT Jayne Pozo MD CHEMISTRY & BLOOD GA S ORDERABLES Performing Organization Address [facility] Co de Phone Number [facility] [address] [place] [address] * MAGNESIUM (05/25/2017 5:59 EDT) Magnesium 1.7 1.7 - 2.8 mg/dl 05/25/2017 7:02 EDT [facility] Blood specimen (specimen) BLOOD SPECIMEN / Unknown 05/25/2017 5:59 EDT 05/25/2017 6:23 EDT Jayne Pozo MD CHEMISTRY & BLOOD GA S ORDERABLES Performing Organization Address [facility] de Phone Number [facility] [address] [place] [address] * (ABNORMAL) CREATININE (05/25/2017 5:59 EDT) Creatinine 0.54(L) 0.66 - 1.25 mg/dl 05/25/2017 7:02 EDT [facility] GFR, Calculated 109 >60 ml/min/1.7 3m2 05/25/2017 7:02 EDT [facility] Comment: eGFR calculated using CKD-EPI equation for non Americans. Multiply eGFR by 1.16 for Americans. Blood specimen (specimen) BLOOD SPECIMEN / Unknown 05/25/2017 5:59 EDT 05/25/2017 6:23 EDT Jayne Pozo MD CHEMISTRY & BLOOD GA S ORDERABLES Performing Organization Address [facility] Co de Phone Number [facility] [address] [place] [address] * (ABNORMAL) HEMAGRAM (05/25/2017 5:59 EDT) WBC 6.99 4.0 - 10.4 K/cmm 05/25/2017 6:36 T [facility] RBC 3.16(L) 4.36 - 5.78 M/cmm 05/25/2017 6:36 [facility] Hemoglobin 10.5(L) 13.8 - 17.3 gm/dl 05/25/2017 6:36 [facility] HCT 29.5(L) 39.5 - 50.2 % 05/25/2017 6:36 [facility] MCV 93 81 - 95 fl 05/25/2017 6:36 [facility] MCH 33.2(H) 27.6 - 33.0 pg 05/25/2017 6:36 [facility] MCHC 35.6 32.8 - 36.4 gm/dl 05/25/2017 6:36 [facility] RDW-CV 11.2 <14.2 % 05/25/2017 6:36 [facility] RDW-SD 38.8 <46.0 fl 05/25/2017 6:36 [facility] PLT 290 141 - 377 K/cmm 05/25/2017 6:36 [facility] MPV 10.7 9.5 - 12.7 fl 05/25/2017 6:36 [facility] Blood specimen (specimen) BLOOD SPECIMEN / Unknown 05/25/2017 5:59 EDT 05/25/2017 6:23 EDT Jayne Pozo MD HEMATOLOGY & PF4 ORD ERABLES [facility] [address] [place] [address] * (ABNORMAL) ELECTROLYTES (05/24/2017 18:02 EDT) Sodium 127(L) 136 - 145 mEq/L 05/24/2017 18:40 EDT [facility] Potassium 3.7 3.5 - 5.0 mEq/L 05/24/2017 18:40 T [facility] Chloride 80(L) 96 - 110 mEq/L 05/24/2017 18:40 EDT [facility] CO2 37(H) 22 - 32 mEq/L 05/24/2017 18:48 EDT [facility] Blood specimen (specimen) BLOOD SPECIMEN / Unknown 05/24/2017 18:02 EDT 05/24/2017 18:16 EDT Jayne Pozo MD CHEMISTRY & BLOOD GA S ORDERABLES [facility] [address] [place] [address] * EKG 12-LEAD (05/24/2017 7:22 EDT) 05/24/2017 7:22 EDT Narrative [facility] EKG - 05/28/2017 9:56 EDT ? [facility] ? Test Date: ?2017-05-24 Pat Name: ? DAVID MERA ?Department: ?? [facility] ? Room: ? MW531 Gender: ? 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 [id number] : ?1950 ? Requested By: PRADIP MONET Order Number: [id number] ? Martha OAKES: ?? ERVIN WILHELM MD ? Measurements Intervals ?[place] ? Rate: ? 103 ?P: ?-19 MS: ? 232 ?QRS: ?-39 QRSD: ? 192 ?T: ?168 QT: ? 412 ? QTc: ?542 ? Interpretive Statements ELECTRONIC VENTRICULAR PACEMAKER Compared to ECG 05/23/2017 07:20:54 No significant changes I reviewed the tracing and have either agreed or edited the findings in this report. Electronically Signed On 05-28-17 09:56:53 EDT by ERVIN WILHELM MD. Procedure Note Ervin Wilhelm MD - 05/28/2017 [facility] Test Date: 2017-05-24 Pat Name: DAVID MERA Department: [facility] Room: [facility] Gender: M Food Stand Manager: [id number] : 1950 Requested By: PRADIP MONET Order Number: [id number] Reading MD: ERVIN WILHELM MD Measurements Intervals [place] Rate: 103 P: -19 MS: 232 QRS: -39 QRSD: 192 T: 168 QT: 412 QTc: 542 Interpretive Statements ELECTRONIC VENTRICULAR PACEMAKER Compared to ECG 05/23/2017 07:20:54 No significant changes I reviewed the tracing and have either agreed or edited the findings inthis report. Electronically Signed On 05-28-17 09:56:53 EDT by ERVIN MARCH. Maria Antonia Zimmerman MD CARDIAC ECG ORDERABL ES Performing Organization Address [facility] Co de Phone Number [facility] EKG * (ABNORMAL) ELECTROLYTES (05/24/2017 5:51 EDT) Sodium 128(L) 136 - 145 mEq/L 05/24/2017 6:56 EDT [facility] Potassium 3.9 3.5 - 5.0 mEq/L 05/24/2017 6:56 EDT [facility] Chloride 83(L) 96 - 110 mEq/L 05/24/2017 6:56 EDT [facility] CO2 36(H) 22 - 32 mEq/L 05/24/2017 7:10 EDT [facility] Blood specimen (specimen) BLOOD SPECIMEN / Unknown 05/24/2017 5:51 EDT 05/24/2017 6:19 EDT Jayne Pozo MD CHEMISTRY & BLOOD GA S ORDERABLES Performing Organization Address [facility] de Phone Number [facility] [address] [place] [address] * (ABNORMAL) BUN (05/24/2017 5:51 EDT) BUN 9(L) 10 - 26 mg/dl 05/24/2017 6:56 EDT [facility] Blood specimen (specimen) BLOOD SPECIMEN / Unknown 05/24/2017 5:51 EDT 05/24/2017 6:19 EDT Jayne Pozo MD CHEMISTRY & BLOOD GA S ORDERABLES Performing Organization Address [facility] Co de Phone Number [facility] [address] [place] [address] * MAGNESIUM (05/24/2017 5:51 EDT) Magnesium 1.7 1.7 - 2.8 mg/dl 05/24/2017 6:56 EDT [facility] Blood specimen (specimen) BLOOD SPECIMEN / Unknown 05/24/2017 5:51 EDT 05/24/2017 6:19 EDT Jayne Pozo MD CHEMISTRY & BLOOD GA S ORDERABLES Performing Organization Address City/[facility]/ZIP Co de Phone Number [facility] [address] [place] [address] * (ABNORMAL) CREATININE (05/24/2017 5:51 EDT) Creatinine 0.59(L) 0.66 - 1.25 mg/dl 05/24/2017 6:56 EDT [facility] GFR, Calculated 105 >60 ml/min/1.7 3m2 05/24/2017 6:56 EDT [facility] Comment: eGFR calculated using CKD-EPI equation for non Americans. Multiply eGFR by 1.16 for Americans. Blood specimen (specimen) BLOOD SPECIMEN / Unknown 05/24/2017 5:51 EDT 05/24/2017 6:19 EDT Jayne Pozo MD CHEMISTRY & BLOOD GA S ORDERABLES Performing Organization Address City/[facility]/ZIP Co de Phone Number [facility] [address] [place] [address] * (ABNORMAL) HEMAGRAM (05/24/2017 5:51 EDT) WBC 7.61 4.0 - 10.4 K/cmm 05/24/2017 6:30 EDT [facility] RBC 3.35(L) 4.36 - 5.78 M/cmm 05/24/2017 6:30 T [facility] Hemoglobin 11.0(L) 13.8 - 17.3 gm/dl 05/24/2017 6:30 EDT [facility] HCT 31.4(L) 39.5 - 50.2 % 05/24/2017 6:30 EDT [facility] MCV 94 81 - 95 fl 05/24/2017 6:30 EDT [facility] MCH 32.8 27.6 - 33.0 pg 05/24/2017 6:30 EDT [facility] MCHC 35.0 32.8 - 36.4 gm/dl 05/24/2017 6:30 EDT [facility] RDW-CV 11.4 <14.2 % 05/24/2017 6:30 EDT [facility] RDW-SD 39.0 <46.0 fl 05/24/2017 6:30 T [facility] PLT 273 141 - 377 K/cmm 05/24/2017 6:30 T [facility] MPV 10.9 9.5 - 12.7 fl 05/24/2017 6:30 EDT [facility] Blood specimen (specimen) BLOOD SPECIMEN / Unknown 05/24/2017 5:51 EDT 05/24/2017 6:19 EDT Jayne Pozo MD HEMATOLOGY & PF4 ORD ERABLES [facility] [address] [place] [address] * (ABNORMAL) ELECTROLYTES (05/23/2017 21:40 EDT) Sodium 128(L) 136 - 145 mEq/L 05/23/2017 22:23 EDT [facility] Potassium 3.6 3.5 - 5.0 mEq/L 05/23/2017 22:23 EDT [facility] Chloride 81(L) 96 - 110 mEq/L 05/23/2017 22:23 EDT [facility] CO2 38(H) 22 - 32 mEq/L 05/23/2017 22:56 EDT [facility] Blood specimen (specimen) BLOOD SPECIMEN / Unknown 05/23/2017 21:40 EDT 05/23/2017 21:45 EDT Jayne Pozo MD CHEMISTRY & BLOOD GA S ORDERABLES Performing Organization Address City/[facility]/ZIP Co de Phone Number [facility] [address] [place] [address] * ECG REPORT - SCANNED (05/23/2017 15:08 EDT) 05/23/2017 15:0 8 EDT Scan 2 [employer] Installer PROCEDURE/MINOR VELMA GICAL ORDERABLES * (ABNORMAL) ELECTROLYTES (05/23/2017 12:16 EDT) Sodium 126(L) 136 - 145 mEq/L 05/23/2017 12:55 EDT [facility] Potassium 3.7 3.5 - 5.0 mEq/L 05/23/2017 12:55 EDT [facility] Chloride 81(L) 96 - 110 mEq/L 05/23/2017 12:55 EDT [facility] CO2 36(H) 22 - 32 mEq/L 05/23/2017 12:55 EDT [facility] Blood specimen (specimen) BLOOD SPECIMEN / Unknown 05/23/2017 12:16 EDT 05/23/2017 12:26 EDT Jayne Pozo MD CHEMISTRY & BLOOD GA S ORDERABLES Performing Organization Address [facility] Co de Phone Number [facility] [address] [place] [address] * ECG REPORT - SCANNED (05/23/2017 11:51 EDT) 05/23/2017 11:5 1 EDT Scan 2 [employer] Installer PROCEDURE/MINOR VELMA GICAL ORDERABLES * ECHOCARDIOGRAM LIMITED (05/23/2017 10:59 EDT) Anatomical Region Laterality Modality Other 05/23/2017 10:5 9 EDT Narrative 05/23/2017 11:19 EDT *Interpreting Group:* *[facility]* [address] [place] [address] Date of study: 05/23/2017 Transthoracic Echocardiography M-mode, limited 2D, limited spectral Doppler, and color Doppler *STUDY CONCLUSIONS* Summary: 1. Left ventricle: The cavity size was normal. Wall thickness was ?? normal. Systolic function was normal. Wall motion was normal; there ?? were no regional wall motion abnormalities. 2. Right ventricle: The cavity size was normal. Pacer wire or catheter ?? noted in right ventricle. Systolic function was normal. 3. Inferior vena cava: The vessel was normal in size. The respirophasic ?? diameter changes were in the normal range (greater than or equal to ?? 50%), consistent with normal central venous pressure. 4. Pericardium, extracardiac: A small to moderate pericardial effusion ?? (maximal diameter 1.5 cm) was identified circumferential to the ?? heart. Respirophasic change in stroke volume was normal. Features ?? were not consistent with tamponade physiology. *PATIENT PRESENTATION* Height: ? 180cm ((70.9in) ) S/D Pressure: 95 / 65 Weight: ? 111kg ((244.2lb) ) BSA: ?2.39m^2 Test start time: ??10:15 AM. Test stop time: ??11:00 AM. ADMITTING ?Akash Reyes MD ATTENDING ?Tony Rosenberg MD LINER INSERTER ??Hali Del Real RDCS PERFORMING ?? [facility], ORDERING ? Jayne Landry REFERRING ?Xena Katia Clark *PROCEDURE DATA* Procedure information: ??This study was interpreted by [facility]. Pertinent images and digital data are archived for permanent storage and are available for subsequent review. Study status: ??Routine. Transthoracic echocardiography. ??M-mode, limited 2D, limited spectral Doppler, and color Doppler. A Transthoracic Echocardiogram was performed. Scanning was performed from the parasternal, apical, and subcostal acoustic windows. Images were obtained using an 591wedq 10 cardiac ultrasound machine. Image quality was poor. The study was technically limited due to restricted patient mobility and body habitus. ??Study completion: ??The patient tolerated the procedure well. *INDICATIONS AND HISTORY* Indications: ?? Pericardial Effusion (I31.3). *CARDIAC ANATOMY* Left ventricle: ??The cavity size was normal. Wall thickness was normal. Systolic function was normal. Wall motion was normal; there were no regional wall motion abnormalities. Right ventricle: ??The cavity size was normal. Pacer wire or catheter noted in right ventricle. Systolic function was normal. Pericardium: ??A small to moderate pericardial effusion (maximal diameter 1.5 cm) was identified circumferential to the heart. ??Doppler: Respirophasic change in stroke volume was normal. Features were not consistent with tamponade physiology. Systemic veins: Inferior vena cava: The vessel was normal in size. The respirophasic diameter changes were in the normal range (greater than or equal to 50%), consistent with normal central venous pressure. I have personally reviewed the images and have reviewed and edited the reported findings. Electronically signed by Bobby Andrade MD 05/23/2017 11:19 Procedure Note Bobby Andrade MD - 05/23/2017 *Interpreting Group:* *[facility]* [address] [place] [address] Date of study: 05/23/2017 Transthoracic Echocardiography M-mode, limited 2D, limited spectral Doppler, and color Doppler *STUDY CONCLUSIONS* Summary: 1. Left ventricle: The cavity size was normal. Wall thickness was normal. Systolic function was normal. Wall motion was normal; there were no regional wall motion abnormalities. 2. Right ventricle: The cavity size was normal. Pacer wire or catheter noted in right ventricle. Systolic function was normal. 3. Inferior vena cava: The vessel was normal in size. The respirophasic diameter changes were in the normal range (greater than or equal to 50%), consistent with normal central venous pressure. 4. Pericardium, extracardiac: A small to moderate pericardial effusion (maximal diameter 1.5 cm) was identified circumferential to the heart. Respirophasic change in stroke volume was normal. Features were not consistent with tamponade physiology. *PATIENT PRESENTATION* Height: 180cm ((70.9in) ) S/D Pressure: 95 / 65 Weight: 111kg ((244.2lb) ) BSA: 2.39m^2 Test start time: 10:15 AM. Test stop time: 11:00 AM. ADMITTING Akash Reyes MD ATTENDING Tony Rosenberg MD LINER INSERTER Hali Del Real JUSTINO PERFORMING [facility] ORDERING Jayne Landry Katelyn Doran *PROCEDURE DATA* Procedure information: This study was interpreted by [facility]. Pertinent images and digital data are archived for permanent storage and are available for subsequent review. Study status: Routine. Transthoracic echocardiography. M-mode, limited 2D, limited spectral Doppler, and color Doppler. A Transthoracic Echocardiogram was performed. Scanning was performed from the parasternal, apical, and subcostal acoustic windows. Images were obtained using an Epiq 10 cardiac ultrasound machine. Image quality was poor. The study was technically limited due to restricted patient mobility and body habitus. Study completion: The patient tolerated the procedure well. *INDICATIONS AND HISTORY* Indications: Pericardial Effusion (I31.3). *CARDIAC ANATOMY* Left ventricle: The cavity size was normal. Wall thickness was normal. Systolic function was normal. Wall motion was normal; there were no regional wall motion abnormalities. Right ventricle: The cavity size was normal. Pacer wire or catheter noted in right ventricle. Systolic function was normal. Pericardium: A small to moderate pericardial effusion (maximal diameter 1.5 cm) was identified circumferential to the heart. Doppler: Respirophasic change in stroke volume was normal. Features were not consistent with tamponade physiology. Systemic veins: Inferior vena cava: The vessel was normal in size. The respirophasic diameter changes were in the normal range (greater than or equal to 50%), consistent with normal central venous pressure. I have personally reviewed the images and have reviewed and edited the reported findings. 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 PROCEDURE/MINOR VELMA GICAL ORDERABLES * FLUID DIFFERENTIAL (05/23/2017 7:47 EDT) Neutrophils, Fluid 30 % 05/23/2017 11:34 EDT [facility] Lymphocytes, Fluid 64 % 05/23/2017 11:34 T [facility] Grayson/Macro, Fluid 5 % 05/23/2017 11:34 [facility] Eosinophil, Fluid 1 % 05/23/2017 11:34 [facility] PERICARDIAL FLUID AND CAVITY, CS / Unknown 05/23/2017 7:47 EDT 05/23/2017 8:18 EDT Сергей Damico MD GEN LAB UNIT COLLECT ORDERABLES Performing Organization Address City/[facility]/ZIP Co de Phone Number [facility] [address] [place] [address] * FUNGUS CULTURE/SMEAR, OTHER (05/23/2017 7:47 EDT) Fungal Smear No fungi seen 05/23/2017 14:20 EDT [facility] Result No fungi isolated 05/30/2017 7:35 EDT [facility] FOSMIC PERICARDIAL FLUID AND CAVITY, CS / Unknown 05/23/2017 7:47 EDT 05/23/2017 9:17 EDT Comment:Markedly bloody Сергей Damico MD MICROBIOLOGY - GENER AL ORDERABLES Performing Organization Address [facility] Co de Phone Number [facility] [address] [place] [address] * ANAEROBE CULTURE/SMEAR(INC. AEROBES), FLUID (05/23/2017 7:47 EDT) Gram Smear Result Few Polys 05/23/2017 9:37 EDT [facility] Gram Smear Result No bacteria seen 05/23/2017 9:37 EDT [facility] Result No growth 05/25/2017 11:45 EDT [facility] FOSMIC PERICARDIAL FLUID AND CAVITY, CS / Unknown 05/23/2017 7:47 EDT 05/23/2017 9:16 EDT Comment:Markedly bloody Сергей Damico MD MICROBIOLOGY - GENER AL ORDERABLES Performing Organization Address City/[facility] Co de Phone Number [facility] [address] [place] [address] * HEMATOCRIT, BODY FLUID (05/23/2017 7:47 EDT) Hematocrit,Bod y Fld 6.5 % 05/23/2017 9:56 EDT [facility] Comment:[facility] PERIC[facility] FL[facility] CAVITY, CS / Unknown 05/23/2017 7:47 EDT 05/23/2017 8:18 EDT Сергей Damico MD GEN LAB UNIT COLLECT ORDERABLES Performing Organization Address City/[facility]/ZIP Co de Phone Number [facility] [address] [place] [address] * FLUID CELL COUNT (05/23/2017 7:47 EDT) RBC, Fluid 661,000 /cmm 05/23/2017 9:41 EDT [facility] Nucleated Cells 1,773 /cmm 05/23/2017 9:41 EDT [facility] Fluid Comment Markedly bloody 05/23/2017 9:41 EDT [facility] PERICARDIAL FLUID AND CAVITY, CS / Unknown 05/23/2017 7:47 EDT 05/23/2017 8:18 EDT Сергей Damico MD GEN LAB UNIT COLLECT ORDERABLES Performing Organization Address [facility] Co de Phone Number [facility] [address] [place] [address] * TOTAL PROTEIN, FLUID (05/23/2017 7:47 EDT) Protein, Fluid 5.5 g/dl 05/23/2017 9:58 EDT [facility] Comment: Reference Range: Pleural [...] the blood, serum, or plasma is recommended. [facility] PERICARDIAL FLUID AND CAVITY, CS / Unknown 05/23/2017 7:47 EDT 05/23/2017 8:18 EDT Сергей Damico MD GEN LAB UNIT COLLECT ORDERABLES Performing Organization Address [facility] Co de Phone Number [facility] [address] [place] [address] * LDH, FLUID (05/23/2017 7:47 EDT) LDH, Fluid 2,337 U/L 05/23/2017 10:05 EDT [facility] Comment: Pleural fluid specimen (specimen) [...] the blood, serum, or plasma is recommended. [facility] CAVITY, CS / Unknown 05/23/2017 7:47 EDT 05/23/2017 8:18 EDT Сергей Damico MD GEN LAB UNIT COLLECT ORDERABLES Performing Organization Address [facility] de Phone Number [facility] [address] [place] [address] * GLUCOSE, FLUID (05/23/2017 7:47 EDT) Glucose, Fluid 54 mg/dl 05/23/2017 9:58 EDT [facility] Comment: Reference Range: Pleural [...] the blood, serum, or plasma is recommended. [facility] PERICARDIAL FLUID AND CAVITY, CS / Unknown 05/23/2017 7:47 EDT 05/23/2017 8:18 EDT Сергей Damico MD GEN LAB UNIT COLLECT ORDERABLES Performing Organization Address City/[facility]/ZIP Co de Phone Number [facility] [address] [place] [address] * ALBUMIN, FLUID (05/23/2017 7:47 EDT) Albumin, Fluid 2.5 g/dl 05/23/2017 9:58 EDT [facility] Comment: Reference Range: Pleural [...] the blood, serum, or plasma is recommended. [facility] PERICARDIAL FLUID AND CAVITY, CS / Unknown 05/23/2017 7:47 EDT 05/23/2017 8:18 EDT Сергей Damico MD GEN LAB UNIT COLLECT ORDERABLES Performing Organization Address City/[facility]/ZIP Co de Phone Number [facility] [address] [place] [address] * EKG 12-LEAD (05/23/2017 7:20 EDT) 05/23/2017 7:20 EDT Narrative [facility] EKG - 05/23/2017 11:45 EDT ? [facility] ? Test Date: ?2017-05-23 Pat Name: ? DAVID MERA ?Department: ?? [facility] [address] ? Room: ? MW531 Gender: ? 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 [id number] : ?1950 ? Requested By: PRADIP MONET Order Number: [id number] ? Reading MD: ?? MARCO A FOX MD ? Measurements Intervals ?[place] ? Rate: ? 102 ?P: ? MS: ? 0 ?QRS: ?-20 QRSD: ? 189 ?T: ?178 QT: ? 398 ? QTc: ?519 ? Interpretive Statements ELECTRONIC VENTRICULAR PACEMAKER ABNORMAL RHYTHM ECG I reviewed the tracing and have either agreed or edited the findings in this report. Electronically Signed On 05-23-17 11:45:47 EDT by MARCO A FOX MD. Procedure Note Marco A Fox MD - 05/23/2017 [facility] Test Date: 2017-05-23 Pat Name: DAVID MERA Department: [place] [address] Room: [facility] Gender: M Food Stand Manager: [id number] : 1950 Requested By: PRADIP MONET Order Number: [id number] Martha MD: MARCO A FOX MD Measurements Intervals [place] Rate: 102 P: MS: 0 QRS: -20 QRSD: 189 T: 178 QT: 398 QTc: 519 Interpretive Statements ELECTRONIC VENTRICULAR PACEMAKER ABNORMAL RHYTHM ECG I reviewed the tracing and have either agreed or edited the findings inthis report. Electronically Signed On 05-23-17 11:45:47 EDT by MARCO A NGUYEN. Maria Antonia Zimmerman MD CARDIAC ECG ORDERABL ES [facility] EKG * (ABNORMAL) ELECTROLYTES (05/23/2017 6:42 EDT) Sodium 124(LL) 136 - 145 mEq/L 05/23/2017 7:45 EDT [facility] Potassium 3.5 3.5 - 5.0 mEq/L 05/23/2017 7:45 EDT [facility] Chloride 84(L) 96 - 110 mEq/L 05/23/2017 7:45 EDT [facility] CO2 33(H) 22 - 32 mEq/L 05/23/2017 7:45 EDT [facility] Blood specimen (specimen) BLOOD SPECIMEN / Unknown 05/23/2017 6:42 EDT 05/23/2017 7:16 EDT Jayne Pozo MD CHEMISTRY & BLOOD GA S ORDERABLES Performing Organization Address [facility] Co de Phone Number [facility] [address] [place] [address] * BUN (05/23/2017 6:42 EDT) BUN 10 10 - 26 mg/dl 05/23/2017 7:45 EDT [facility] Blood specimen (specimen) BLOOD SPECIMEN / Unknown 05/23/2017 6:42 EDT 05/23/2017 7:16 EDT Jayne Pozo MD CHEMISTRY & BLOOD GA S ORDERABLES Performing Organization Address [facility] Co de Phone Number [facility] [address] [place] [address] * MAGNESIUM (05/23/2017 6:42 EDT) Magnesium 1.7 1.7 - 2.8 mg/dl 05/23/2017 7:45 EDT [facility] Blood specimen (specimen) BLOOD SPECIMEN / Unknown 05/23/2017 6:42 EDT 05/23/2017 7:16 EDT Jayne Pozo MD CHEMISTRY & BLOOD GA S ORDERABLES Performing Organization Address [facility] Co de Phone Number [facility] [address] [place] [address] * (ABNORMAL) CREATININE (05/23/2017 6:42 EDT) Creatinine 0.50(L) 0.66 - 1.25 mg/dl 05/23/2017 7:45 EDT [facility] GFR, Calculated 113 >60 ml/min/1.7 3m2 05/23/2017 7:45 EDT [facility] Comment: eGFR calculated using CKD-EPI equation for non Americans. Multiply eGFR by 1.16 for Americans. Blood specimen (specimen) BLOOD SPECIMEN / Unknown 05/23/2017 6:42 EDT 05/23/2017 7:16 EDT Jayne Pozo MD CHEMISTRY & BLOOD GA S ORDERABLES [facility] [address] [place] [address] * (ABNORMAL) HEMAGRAM (05/23/2017 6:42 EDT) WBC 8.96 4.0 - 10.4 K/cmm 05/23/2017 7:24 T [facility] RBC 3.30(L) 4.36 - 5.78 M/cmm 05/23/2017 7:24 [facility] Hemoglobin 11.0(L) 13.8 - 17.3 gm/dl 05/23/2017 7:24 [facility] HCT 30.8(L) 39.5 - 50.2 % 05/23/2017 7:24 [facility] MCV 93 81 - 95 fl 05/23/2017 7:24 [facility] MCH 33.3(H) 27.6 - 33.0 pg 05/23/2017 7:24 [facility] MCHC 35.7 32.8 - 36.4 gm/dl 05/23/2017 7:24 [facility] RDW-CV 11.3 <14.2 % 05/23/2017 7:24 [facility] RDW-SD 38.5 <46.0 fl 05/23/2017 7:24 [facility] PLT 254 141 - 377 K/cmm 05/23/2017 7:24 [facility] MPV 11.2 9.5 - 12.7 fl 05/23/2017 7:24 [facility] Blood specimen (specimen) BLOOD SPECIMEN / Unknown 05/23/2017 6:42 EDT 05/23/2017 7:16 EDT Jayne Pozo MD HEMATOLOGY & PF4 ORD ERABLES [facility] [address] [place] [address] * CYTOPATHOLOGY (05/23/2017 0:00 EDT) Pathology Report: CYTOPATHOLOGY REPORT Reports generated via electronic interface contain original data; however they are lacking the format of the original report. Caution should be taken when reading/interpret ing unformatted reports. Name: ? DAVID MERA ? Accession #: ? [id number] : ? 1950 (Age: 66) ??M ?Collect Date: ? 05/23/2017 Location: ? M005 ? Receive Date: ? 05/23/2017 Provider: ? СЕРГЕЙ DAMICO MD Copy to: ?LALY LUIS MD ? CYTOLOGIC DIAGNOSIS: PERICARDIAL FLUID. CYTOLOGIC EVALUATION: - ??Negative for malignant cells. - ??Scattered mesothelial cells in a background of blood and acute inflammation. Document reviewed and electronically signed by: ? RIA KRAUSE MD Report Date: ??05/26/2017 16:24 By the signature above, the attending physician certifies that he/she has personally conducted a gross and/or microscopic examination of the described specimens and rendered or confirmed the above diagnosis. Specimen Type: ? Pericardial Fluid Clinical History: ? Moderate pericardial effusion and cough along with severe hyponatremia. ? Gross Description: ? 410 ccs of opaque red fluid were received and processed by selective cellular enhancement technique. ? End of Report [facility] 05/23/2017 05/23/2017 9:4 0 EDT Сергей Damico MD PATHOLOGY ORDERABLES Performing Organization Address [facility] Phone Number [facility] [address] [place] [address] * (ABNORMAL) ELECTROLYTES (05/22/2017 23:40 EDT) Sodium 125(L) 136 - 145 mEq/L 05/23/2017 0:39 EDT [facility] Potassium 3.3(L) 3.5 - 5.0 mEq/L 05/23/2017 0:39 EDT [facility] Chloride 84(L) 96 - 110 mEq/L 05/23/2017 0:39 EDT [facility] CO2 33(H) 22 - 32 mEq/L 05/23/2017 0:39 EDT [facility] Blood specimen (specimen) BLOOD SPECIMEN / Unknown 05/22/2017 23:40 EDT 05/22/2017 23:58 EDT Jayne Pozo MD CHEMISTRY & BLOOD GA S ORDERABLES Performing Organization Address [facility] de Phone Number [facility] [address] [place] [address] * (ABNORMAL) ELECTROLYTES (05/22/2017 18:36 EDT) Sodium 124(LL) 136 - 145 mEq/L 05/22/2017 19:37 EDT [facility] Comment:Slight hemolysis Potassium 3.9 3.5 - 5.0 mEq/L 05/22/2017 19:37 EDT [facility] Comment: Slight hemolysis Hemolysis may elevate potassium result. Chloride 81(L) 96 - 110 mEq/L 05/22/2017 19:37 EDT [facility] Comment:Slight hemolysis CO2 32 22 - 32 mEq/L 05/22/2017 19:37 EDT [facility] Comment:Slight hemolysis Blood specimen (specimen) BLOOD SPECIMEN / Unknown 05/22/2017 18:36 EDT 05/22/2017 19:04 EDT Jayne Pozo MD CHEMISTRY & BLOOD GA S ORDERABLES [facility] [address] [place] [address] * CHEST PA AND LATERAL (05/22/2017 14:43 EDT) Anatomical Region Laterality Modality Other 05/22/2017 14:4 3 EDT 05/22/2017 15:28 EDT Narrative 05/22/2017 15:28 EDT CHEST PA AND LATERAL ??05/22/2017 2:43 PM Signs and Symptoms/Comments: ?? Cardiac Pacemaker Impression: 1. ??Status post placement pericardial drain. 2. ??Stable position of the dual chamber pacemaker. Comparison: 18 hours prior Findings: Dense pleural calcification along the lateral right chest wall is unchanged in appearance. There is incomplete inflation of the infrahilar lung with the left diaphragm less well seen. Procedure Note Laly Alberto MD - 05/22/2017 CHEST PA AND LATERAL 05/22/2017 2:43 PM Signs and Symptoms/Comments: Cardiac Pacemaker Impression: 1. Status post placement pericardial drain. 2. Stable position of the dual chamber pacemaker. Comparison: 18 hours prior Findings: Dense pleural calcification along the lateral right chest wall is unchanged in appearance. There is incomplete inflation of the infrahilar lung with the left diaphragm less well seen. Seng Rand MD PhD IMG DI AGNOSTIC IMAGING ORDERABLES * (ABNORMAL) ELECTROLYTES (05/22/2017 12:36 EDT) Sodium 121(LL) 136 - 145 mEq/L 05/22/2017 13:23 EDT [facility] Comment:Moderate hemolysis Potassium 5.3(H) 3.5 - 5.0 mEq/L 05/22/2017 13:23 EDT [facility] Comment: Moderate hemolysis Hemolysis may elevate potassium result. Chloride 85(L) 96 - 110 mEq/L 05/22/2017 13:23 EDT [facility] Comment:Moderate hemolysis CO2 27 22 - 32 mEq/L 05/22/2017 13:23 EDT [facility] Comment:Moderate hemolysis Blood specimen (specimen) BLOOD SPECIMEN / Unknown 05/22/2017 12:36 EDT 05/22/2017 12:51 EDT Jayne Pozo MD CHEMISTRY & BLOOD GA S ORDERABLES Performing Organization Address [facility] Co de Phone Number [facility] [address] [place] [address] * BACTERIAL CULTURE, BLOOD (05/22/2017 9:58 EDT) Result No growth 05/27/2017 6:35 EDT [facility] Blood specimen (specimen) BLOOD SPECIMEN / Unknown 05/22/2017 9:58 EDT 05/22/2017 10:47 EDT Comment:Left~Hand~AEROBIC BL OOD CULTURE BOTTLE~Volume of blood collected may not be adequate for detection of bacteremia/septicemia.~2ND SET Jayne Pozo MD MICROBIOLOGY - GENER AL ORDERABLES Performing Organization Address [facility] Co de Phone Number [facility] [address] [place] [address] * BACTERIAL CULTURE, BLOOD (05/22/2017 9:58 EDT) Result No growth 05/27/2017 6:35 EDT [facility] Blood specimen (specimen) BLOOD SPECIMEN / Unknown 05/22/2017 9:58 EDT 05/22/2017 10:47 EDT Comment:Left~Hand~Total volu me of blood collected:~20 ml Jayne Pozo MD MICROBIOLOGY - GENER AL ORDERABLES Performing Organization Address [facility] Co de Phone Number [facility] [address] [place] [address] * EKG 12-LEAD (05/22/2017 8:04 EDT) 05/22/2017 8:04 EDT Narrative [facility] E[facility] - 05/26/2017 12:50 EDT ? [facility] ? Test Date: ?2017-05-22 Pat Name: ? DAVID MERA ?Department: ?? [facility] ? Room: ? MW531 Gender: ? 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 [id number] : ?1950 ? Requested By: PRADIP MONET Order Number: [id number] ? Reading MD: ?? GAGAN RAMOS MD ? Measurements Intervals ?[place] ? Rate: ? 115 ?P: ?-20 MS: ? 237 ?QRS: ?-24 QRSD: ? 177 ?T: ?172 QT: ? 357 ? QTc: ?496 ? Interpretive Statements ELECTRONIC VENTRICULAR PACEMAKER ABNORMAL RHYTHM ECG Compared to ECG 05/21/2017 20:29:55 No significant changes I reviewed the tracing and have either agreed or edited the findings in this report. Electronically Signed On 05-26-17 12:50:27 EDT by GAGAN RAMOS MD. Procedure Note Gagan Ramos MD - 05/26/2017 [facility] Test Date: 2017-05-22 Pat Name: DAVID MERA Department: [place] [address] Room: [facility] Gender: M Food Stand Manager: [id number] : 1950 Requested By: PRADIP MONET Order Number: [id number] Martha MD: GAGAN RAMOS MD Measurements Intervals [place] Rate: 115 P: -20 MS: 237 QRS: -24 QRSD: 177 T: 172 QT: 357 QTc: 496 Interpretive Statements ELECTRONIC VENTRICULAR PACEMAKER ABNORMAL RHYTHM ECG Compared to ECG 05/21/2017 20:29:55 No significant changes I reviewed the tracing and have either agreed or edited the findings inthis report. Electronically Signed On 05-26-17 12:50:27 EDT by GAGAN LEDESMA. Maria Antonia Zimmerman MD CARDIAC ECG ORDERABL ES [facility] EKG * BUN (05/22/2017 4:09 EDT) BUN 11 10 - 26 mg/dl 05/22/2017 4:54 EDT [facility] Blood specimen (specimen) BLOOD SPECIMEN / Unknown 05/22/2017 4:09 EDT 05/22/2017 4:18 EDT Jayne Pozo MD CHEMISTRY & BLOOD GA S ORDERABLES Performing Organization Address City/[facility]/ZIP Co de Phone Number [facility] [address] [place] [address] * MAGNESIUM (05/22/2017 4:09 EDT) Magnesium 2.1 1.7 - 2.8 mg/dl 05/22/2017 4:54 EDT [facility] Blood specimen (specimen) BLOOD SPECIMEN / Unknown 05/22/2017 4:09 EDT 05/22/2017 4:18 EDT Jayne Pozo MD CHEMISTRY & BLOOD GA S ORDERABLES Performing Organization Address [facility] Co de Phone Number [facility] [address] [place] [address] * (ABNORMAL) CREATININE (05/22/2017 4:09 EDT) Creatinine 0.56(L) 0.66 - 1.25 mg/dl 05/22/2017 4:54 EDT [facility] GFR, Calculated 108 >60 ml/min/1.7 3m2 05/22/2017 4:54 EDT [facility] Comment: eGFR calculated using CKD-EPI equation for non Americans. Multiply eGFR by 1.16 for Americans. Blood specimen (specimen) BLOOD SPECIMEN / Unknown 05/22/2017 4:09 EDT 05/22/2017 4:18 EDT Jayne Pozo MD CHEMISTRY & BLOOD GA S ORDERABLES Performing Organization Address City/[facility]/ZIP Co de Phone Number [facility] [address] [place] [address] * (ABNORMAL) HEMAGRAM (05/22/2017 4:09 EDT) WBC 10.75(H) 4.0 - 10.4 K/cmm 05/22/2017 4:37 EDT [facility] RBC 3.70(L) 4.36 - 5.78 M/cmm 05/22/2017 4:37 [facility] Hemoglobin 12.2(L) 13.8 - 17.3 gm/dl 05/22/2017 4:37 T [facility] HCT 34.1(L) 39.5 - 50.2 % 05/22/2017 4:37 [facility] MCV 92 81 - 95 fl 05/22/2017 4:37 [facility] MCH 33.0 27.6 - 33.0 pg 05/22/2017 4:37 [facility] MCHC 35.8 32.8 - 36.4 gm/dl 05/22/2017 4:37 [facility] RDW-CV 10.9 <14.2 % 05/22/2017 4:37 [facility] RDW-SD 37.2 <46.0 fl 05/22/2017 4:37 [facility] PLT 294 141 - 377 K/cmm 05/22/2017 4:37 [facility] MPV 10.7 9.5 - 12.7 fl 05/22/2017 4:37 [facility] Blood specimen (specimen) BLOOD SPECIMEN / Unknown 05/22/2017 4:09 EDT 05/22/2017 4:18 EDT Jayne Pozo MD HEMATOLOGY & PF4 ORD ERABLES [facility] [address] [place] [address] * (ABNORMAL) ELECTROLYTES (05/22/2017 4:09 EDT) Sodium 122(LL) 136 - 145 mEq/L 05/22/2017 4:54 T [facility] Potassium 4.0 3.5 - 5.0 mEq/L 05/22/2017 4:54 EDT [facility] Chloride 84(L) 96 - 110 mEq/L 05/22/2017 4:54 EDT [facility] CO2 29 22 - 32 mEq/L 05/22/2017 4:54 EDT [facility] Blood specimen (specimen) BLOOD SPECIMEN / Unknown 05/22/2017 4:09 EDT 05/22/2017 4:18 EDT Maria Antonia Zimmerman MD CHEMISTRY & BLOOD GA S ORDERABLES Performing Organization Address [facility] de Phone Number [facility] [address] [place] [address] * (ABNORMAL) ELECTROLYTES (05/22/2017 0:23 EDT) Sodium 120(LL) 136 - 145 mEq/L 05/22/2017 1:00 EDT [facility] Potassium 3.4(L) 3.5 - 5.0 mEq/L 05/22/2017 1:00 EDT [facility] Chloride 83(L) 96 - 110 mEq/L 05/22/2017 1:00 EDT [facility] CO2 31 22 - 32 mEq/L 05/22/2017 1:00 EDT [facility] Blood specimen (specimen) BLOOD SPECIMEN / Unknown 05/22/2017 0:23 EDT 05/22/2017 0:27 EDT Maria Antonia Zimmerman MD CHEMISTRY & BLOOD GA S ORDERABLES Performing Organization Address [facility] Co de Phone Number [facility] [address] [place] [address] * EKG 12-LEAD (05/21/2017 20:29 EDT) 05/21/2017 20:2 9 EDT Narrative [facility] EKG - 05/30/2017 11:55 EDT ? [facility] ? Test Date: ?2017-05-21 Pat Name: ? DAVID MERA ?Department: ?? [facility] ? Room: ? MW531 Gender: ? 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 [id number] : ?1950 ? Requested By: ROBLES HUTSON L Order Number: [id number] ? Reading MD: ?? ASHLEY CONSUELO MD ? Measurements Intervals ?[place] ? Rate: ? 109 ?P: ? MS: ? 0 ?QRS: ?-41 QRSD: ? 179 ?T: ?175 QT: ? 391 ? QTc: ?528 ? Interpretive Statements ELECTRONIC VENTRICULAR PACEMAKER ABNORMAL RHYTHM ECG Compared to ECG 05/21/2017 07:12:25 No significant changes I reviewed the tracing and have either agreed or edited the findings in this report. Electronically Signed On 05-30-17 11:55:09 EDT by ASHLEY EDWARDS MD. Procedure Note Ashley Edwards Jr., MD - 05/30/2017 [facility] Test Date: 2017-05-21 Pat Name: DAVID MERA Department: [place] [address] Room: [facility] Gender: M Food Stand Manager: [id number] : 1950 Requested By: ROBLES Cabral Order Number: [id number] Reading MD: ASHLEY EDWARDS MD Measurements Intervals [place] Rate: 109 P: MS: 0 QRS: -41 QRSD: 179 T: 175 QT: 391 QTc: 528 Interpretive Statements ELECTRONIC VENTRICULAR PACEMAKER ABNORMAL RHYTHM ECG Compared to ECG 05/21/2017 07:12:25 No significant changes I reviewed the tracing and have either agreed or edited the findings inthis report. Electronically Signed On 05-30-17 11:55:09 EDT by ASHLEY RAI. Seng Rand MD PhD CARDIA C ECG ORDERABLES [facility] EKG * PORTABLE CHEST 1 VIEW (05/21/2017 20:25 EDT) Anatomical Region Laterality Modality Other 05/21/2017 20:2 5 EDT 05/21/2017 20:35 EDT Narrative 05/21/2017 20:35 EDT PORTABLE CHEST 1 VIEW ??05/21/2017 8:25 PM Clinical History/Comments: Cardiac Pacemaker Comparison: Chest radiographs dated May 20, 2017; May 02, 2017; and April 30, 2017. Findings: Single portable AP view of the chest obtained 40 degrees upright show bibasilar atelectasis with bilateral pleural effusions. Redemonstrated is extensive pleural calcification in the right. The cardiac silhouette is enlarged but stable, there is minimal indistinctness of the pulmonary vascularity which may relate to early interstitial lung edema. Again noted is a left chest battery pack pacemaker with 2 leads projecting in the right atrium and right ventricle. There is a coiled catheter coming from below near the midline and extending towards the right, this was not present on the most recent prior radiographs. No visible pneumothorax, however cannot be excluded on a semiupright upright radiograph. Procedure Note Anthony Hartman MD - 05/21/2017 PORTABLE CHEST 1 VIEW 05/21/2017 8:25 PM Clinical History/Comments: Cardiac Pacemaker Comparison: Chest radiographs dated May 20, 2017; May 02, 2017; and April 30, 2017. Findings: Single portable AP view of the chest obtained 40 degrees upright show bibasilar atelectasis with bilateral pleural effusions. Redemonstrated is extensive pleural calcification in the right. The cardiac silhouette is enlarged but stable, there is minimal indistinctness of the pulmonary vascularity which may relate to early interstitial lung edema. Again noted is a left chest battery pack pacemaker with 2 leads projecting in the right atrium and right ventricle. There is a coiled catheter coming from below near the midline and extending towards the right, this was not present on the most recent prior radiographs. No visible pneumothorax, however cannot be excluded on a semiupright upright radiograph. Seng Rand MD PhD IMG DI AGNOSTIC IMAGING ORDERABLES * (ABNORMAL) ELECTROLYTES (05/21/2017 20:08 EDT) Sodium 121(LL) 136 - 145 mEq/L 05/21/2017 20:54 EDT [facility] Potassium 3.7 3.5 - 5.0 mEq/L 05/21/2017 20:54 EDT [facility] Chloride 79(L) 96 - 110 mEq/L 05/21/2017 20:54 EDT [facility] CO2 32 22 - 32 mEq/L 05/21/2017 20:54 EDT [facility] Blood specimen (specimen) BLOOD SPECIMEN / Unknown 05/21/2017 20:08 EDT 05/21/2017 20:28 EDT Maria Antonia Zimmerman MD CHEMISTRY & BLOOD GA S ORDERABLES [facility] [address] [place] [address] * PERMANENT PACEMAKER PROCEDURE (05/21/2017 19:42 EDT) Anatomical Region Laterality Modality Other 05/21/2017 19:4 2 EDT Narrative 05/21/2017 20:01 EDT *Cardiology* [address] [place] [address] Lead Revision Patient: David Mera ? Study Date: ?05/21/2017 ? Accession #: ? [id number] : ? 1950 Referring: Katia Mccallum Attending: Seng Rand MD, PhD Fellow: Assisting: John Dixon RN Copies: ATTESTATION: I, Dr. Seng Rand have reviewed and agree with the findings of this report. SUMMARY OF PROCEDURE: - There were no complications. - Successful Lead revision. - Successful Pericardiocentesis and Pericardial Drain placement PROCEDURE INDICATION: Lead failure HISTORY AND INDICATIONS: ?? Dyspnea/SOB. ??3degrees AV block. ??Pericardial effusion, due to postoperative hemorrhage, with tamponade. Effusion s/p recent permanent pacemaker implant, leads suspected as source of bleeding. STUDY DATA: ?? Study status: ??Urgent. PROCEDURE: - Lead revision Lead explant ??Lead implant ??Pericardiocentesis and pericardial drain placement ??720 cc serosanginous drainage ??Minimal effusion by echo post procedure by echo (1 cm at the most, ??regionally distributed) ANESTHESIA: Conscious sedation and local anesthesia. PROCEDURE: The risks, benefits, and alternatives to the procedure and sedation were explained and informed consent was obtained. The patient name, date of , surgical site, and procedure were verified prior to the procedure. The patient was brought to the OR in the fasting state. The chest and left chest was prepped and draped in the usual sterile manner. ??Lidocaine 2% and Bupivacaine 0.5% was administered to the left deltopectoral groove. The subxiphoid area was also anesthetized with lidocaine,. Using fluoroscopic guidance a long Seldinger needle as advanced substernally to the pericardium: The RV was wired twice before successful access to the pericardial space was achieved and a Pig tail drainage catheter was placed in the pericardium and 720 cc serosanguinous fluid was drained with marked improvement in the blood pressure noted instantly. An antibiotic disc and Tegaderm were placed over the entry point of the catheter. At the end of the case there was no further drainage though some fluid still present by post procedure echo noted. The attending physician was present for the entire procedure. The pocket was opened with an incision through the previous scar. The right ventricular lead was disconnected. The right atrial lead was disconnected. The screw was unscrewed and attempts to reposition and advance failed due to screw failure: The lead insulation was used to advance a glide wire into the axillary vein and the lead was extracted. A 7 Bruneian safety sheath was advanced over the wire and using a C315 S4 sheath a 3830 lead was implanted in Richard's bundle (second site successful). The sheaths were slit and split and the suture sleeve sutured with 0-silk. The right ventricular lead was disconnected. The lead screw was retracted and using [...] was placed in the pocket.The wound was closed in three layers.The deepest layer was continuous vertical mattress using 2-0 Monocryl.The mid layer was continuous horizontal mattress using 3-0 Monocryl.The superficial layer was continuous horizontal mattress using 4-0 Monocryl.The skin was coated with topical skin adhesive. IMPLANTED HARDWARE: Implanted device: [employer]arm - [employer] [facility] - Serial number: [id number]. Implanted originally on 05-02-2017. LEAD PARAMETERS + + + + + Lead # ? 1 ? 1 ? 2 ? + + + + + Chamber ? RA ? RA ? RV ? + + + + + Date implanted ?? 05/02/2017 ? 05/21/2017 ? 05/02/2017 ? + + + + + Model ? [employer] Medtronic Select [place] Sci 4568 ?? information ? 6074 ? [id number] [id number] ? + + + + + Serial number ?? [id number] ? [id number] ? [id number] ? + + + + + Location ? RA appendage ? BACHMANNS BUNDLE Mid RV septum ? + + + + + Capture ? 1V@ 0.5ms ? 0.4V@ 0.5ms ? + + + + + Impedance ? 750Ohms ? 600Ohms ? + + + + + Sensing ? 2mV ? 15mV ? + + + + + Status ? Explanted ? Active ? Active ? + + + + + STUDY COMPLETION Administered medications: ?? Cefazolin (Ancef, Kefzol) , prior to the procedure for infection prophylaxis. - Fluoroscopy time: 5min. - Isovue Contrast: 3ml. - Patient in-room time: 04:45 PM. - Patient out-of-room time: 07:48 PM. - Intake: 850ml - Output: 550ml - Estimated blood loss: 30ml. Pericardial fluid drained: 720 cc. Summary: 1. Study data: Lead revision. PLAN: ??See post procedure orders. Bed rest for 4hours. Ketorolac for pericardial pain. At the completion of the procedure, findings, results, any complications, and treatment plan were communicated to the patient and reinforced after recovery from anesthesia. With the patient's consent, the attending physician communicated findings, results, any complications, and treatment plan to family members and patient support persons who were present at the conclusion of the procedure. POST PROCEDURAL DISPOSITION: Patient was admitted as an inpatient prior to this procedure. Electronically signed by Seng Rand MD, PhD 05/21/2017 20:01 Procedure Note Seng Rand MD - 05/21/2017 *Cardiology* [address] [place] [address] Lead Revision Patient: David Mera Study Date: 05/21/2017 : 1950 Referring: Katia Mccallum Attending: Seng Rand MD, PhD Fellow: Assisting: John Dixon RN Copies: ATTESTATION: I, Dr. Seng Rand have reviewed and agree with the findings of this report. SUMMARY OF PROCEDURE: - There were no complications. - Successful Lead revision. - Successful Pericardiocentesis and Pericardial Drain placement PROCEDURE INDICATION: Lead failure HISTORY AND INDICATIONS: Dyspnea/SOB. 3degrees AV block. Pericardial effusion, due to postoperative hemorrhage, with tamponade. Effusion s/p recent permanent pacemaker implant, leads suspected as source of bleeding. STUDY DATA: Study status: Urgent. PROCEDURE: - Lead revision Lead explant Lead implant Pericardiocentesis and pericardial drain placement 720 cc serosanginous drainage Minimal effusion by echo post procedure by echo (1 cm at the most, regionally distributed) ANESTHESIA: Conscious sedation and local anesthesia. PROCEDURE: The risks, benefits, and alternatives to the procedure and sedation were explained and informed consent was obtained. The patient name, date of , surgical site, and procedure were verified prior to the procedure. The patient was brought to the OR in the fasting state. The chest and left chest was prepped and draped in the usual sterile manner. Lidocaine 2% and Bupivacaine 0.5% was administered to the left deltopectoral groove. The subxiphoid area was also anesthetized with lidocaine,. Using fluoroscopic guidance a long Seldinger needle as advanced substernally to the pericardium: The RV was wired twice before successful access to the pericardial space was achieved and a Pig tail drainage catheter was placed in the pericardium and 720 cc serosanguinous fluid was drained with marked improvement in the blood pressure noted instantly. An antibiotic disc and Tegaderm were placed over the entry point of the catheter. At the end of the case there was no further drainage though some fluid still present by post procedure echo noted. The attending physician was present for the entire procedure. The pocket was opened with an incision through the previous scar. The right ventricular lead was disconnected. The right atrial lead was disconnected. The screw was unscrewed and attempts to reposition and advance failed due to screw failure: The lead insulation was used to advance a glide wire into the axillary vein and the lead was extracted. A 7 Bruneian safety sheath was advanced over the wire and using a C315 S4 sheath a 3830 lead was implanted in Richard's bundle (second site successful). The sheaths were slit and split and the suture sleeve sutured with 0-silk. The right ventricular lead was disconnected. The lead screw was retracted and using [...] was placed in the pocket.The wound was closed in three layers.The deepest layer was continuous vertical mattress using 2-0 Monocryl.The mid layer was continuous horizontal mattress using 3-0 Monocryl.The superficial layer was continuous horizontal mattress using 4-0 Monocryl.The skin was coated with topical skin adhesive. IMPLANTED HARDWARE: Implanted device: [employer] - [employer] - Serial number: [id number]. Implanted originally on 05-02-2017. LEAD PARAMETERS + + + + + Lead # 1 1 2 + + + + + Chamber RA RA RV + + + + + Date implanted 05/02/2017 05/21/2017 05/02/2017 + + + + + Model [employer] Medtronic Select [place] Sci 7742 information 8840 Secure-59 [id number] 59 + + + + + Serial number [id number] + + + + + Location RA appendage BACHMANNS BUNDLE Mid RV septum + + + + + Capture 1V@ 0.5ms 0.4V@ 0.5ms + + + + + Impedance 750Ohms 600Ohms + + + + + Sensing 2mV 15mV + + + + + Status Explanted Active Active + + + + + STUDY COMPLETION Administered medications: Cefazolin (Ancef, Kefzol) , prior to the procedure for infection prophylaxis. - Fluoroscopy time: 5min. - Isovue Contrast: 3ml. - Patient in-room time: 04:45 PM. - Patient out-of-room time: 07:48 PM. - Intake: 850ml - Output: 550ml - Estimated blood loss: 30ml. Pericardial fluid drained: 720 cc. Summary: 1. Study data: Lead revision. PLAN: See post procedure orders. Bed rest for 4hours. Ketorolac for pericardial pain. At the completion of the procedure, findings, results, any complications, and treatment plan were communicated to the patient and reinforced after recovery from anesthesia. With the patient's consent, the attending physician communicated findings, results, any complications, and treatment plan to family members and patient support persons who were present at the conclusion of the procedure. POST PROCEDURAL DISPOSITION: Patient was admitted as an inpatient prior to this procedure. Electronically signed by Seng Rand MD, PhD 05/21/2017 20:01 Seng Rand MD PhD [facility] ORDERABLES * INPATIENT ADD-ON (05/21/2017 18:20 EDT) Tests to be added FREE T4,TSH 05/21/2017 18:16 EDT [facility] Number for problems [id number] 05/21/2017 18:23 EDT [facility] Accession number [id number] 05/21/2017 18:23 EDT [facility] TOPOGRAPHY UNKNOWN / Unknown 05/21/2017 18:20 EDT 05/21/2017 18:22 EDT Jayesh Garcia MD HEMATOLOGY & PF4 O RDERABLES [facility] [address] [place] [address] * CREATININE, URINE RANDOM (05/21/2017 18:20 EDT) Creatinine, Urn Omer 26.2 mg/dl 05/21/2017 21:25 EDT [facility] Urine specimen (specimen) URINE / Unknown 05/21/2017 18:20 EDT 05/21/2017 21:06 EDT Jayesh Garcia MD URINALYSIS ORDERAB LES Performing Organization Address [facility] Co de Phone Number [facility] [address] [place] [address] * PROTEIN, TOTAL, RANDOM, URINE (05/21/2017 18:20 EDT) Tot Prot,Ur Random 21 mg/dl 05/21/2017 21:25 EDT [facility] Urine specimen (specimen) URINE / Unknown 05/21/2017 18:20 EDT 05/21/2017 21:06 EDT Jayesh Garcia MD URINALYSIS ORDERAB LES Performing Organization Address [facility] de Phone Number [facility] [address] [place] [address] * ECHOCARDIOGRAM LIMITED (05/21/2017 18:19 EDT) Anatomical Region Laterality Modality Other 05/21/2017 18:1 9 EDT Narrative 05/22/2017 8:34 EDT *Interpreting Group:* *[facility]* [address] [place] [address] Date of study: 05/21/2017 Transthoracic Echocardiography M-mode, limited 2D, limited spectral Doppler, and color Doppler *STUDY CONCLUSIONS* Summary: 1. Pericardium, extracardiac: A small pericardial effusion was ?? identified circumferential to the heart. It was the largest along to ?? the basal lateral wall of the left ventricle and the adjacent left ?? atrium. *PATIENT PRESENTATION* Height: ? () S/D Pressure: Weight: ? () BSA: Test start time: ??06:19 PM. Test stop time: ??07:33 PM. PERFORMING ?? [facility], LINER INSERTER ??Emilia Corey RDCS *PROCEDURE DATA* Procedure information: ??This study was interpreted by [facility]. Pertinent images and digital data are archived for permanent storage and are available for subsequent review. Study status: ??STAT. Transthoracic echocardiography. ??M-mode, limited 2D, limited spectral Doppler, and color Doppler. A Transthoracic Echocardiogram was performed. Scanning was performed from the parasternal, apical, and subcostal acoustic windows. Images were obtained using an 591wedq 13 cardiac ultrasound machine. Image quality was poor. The study was technically limited due to poor acoustic window availability, restricted patient mobility, and body habitus. ??Study completion: ??The patient tolerated the procedure well. There were no complications. *INDICATIONS AND HISTORY* Indications: ?? Pericardial Effusion (I31.3), known, pre-procedure. *CARDIAC ANATOMY* Pericardium: ??A small pericardial effusion was identified circumferential to the heart. It was the largest along to the basal lateral wall of the left ventricle and the adjacent left atrium. Measurements Left ventricle ? Value ?05/21/2017 LV end-diastolic volume, 1-p A2C ? 91 ?ml 122 LV ejection fraction, 1-p A2C ?68 ?% ??70 Legend: (L) ??and ??(H) ??claude values outside specified reference range. I have personally reviewed the images and have reviewed and edited the reported findings. Electronically signed by Pierre Rubio MD 05/22/2017 08:34 Procedure Note Pierre Rubio MD - 05/22/2017 *Interpreting Group:* *[facility]* [address] [place] [id number] Date of study: 05/21/2017 Transthoracic Echocardiography M-mode, limited 2D, limited spectral Doppler, and color Doppler *STUDY CONCLUSIONS* Summary: 1. Pericardium, extracardiac: A small pericardial effusion was identified circumferential to the heart. It was the largest along to the basal lateral wall of the left ventricle and the adjacent left atrium. *PATIENT PRESENTATION* Height: () S/D Pressure: Weight: () BSA: Test start time: 06:19 PM. Test stop time: 07:33 PM. PERFORMING [facility], LINER INSERTER Emilia Corey RD *PROCEDURE DATA* Procedure information: This study was interpreted by [facility]. Pertinent images and digital data are archived for permanent storage and are available for subsequent review. Study status: STAT. Transthoracic echocardiography. M-mode, limited 2D, limited spectral Doppler, and color Doppler. A Transthoracic Echocardiogram was performed. Scanning was performed from the parasternal, apical, and subcostal acoustic windows. Images were obtained using an 591wedq 13 cardiac ultrasound machine. Image quality was poor. The study was technically limited due to poor acoustic window availability, restricted patient mobility, and body habitus. Study completion: The patient tolerated the procedure well. There were no complications. *INDICATIONS AND HISTORY* Indications: Pericardial Effusion (I31.3), known, pre-procedure. *CARDIAC ANATOMY* Pericardium: A small pericardial effusion was identified circumferential to the heart. It was the largest along to the basal lateral wall of the left ventricle and the adjacent left atrium. Measurements Left ventricle Value 05/21/2017 LV end-diastolic volume, 1-p A2C 91 ml 122 LV ejection fraction, 1-p A2C 68 % 70 Legend: (L) and (H) claude values outside specified reference range. I have personally reviewed the images and have reviewed and edited the reported findings. Electronically signed by Pierre Rubio MD 05/22/2017 08:34 Tony Rosenberg MD CARDIAC ECHO ORDERABLES * TSH (05/21/2017 14:02 EDT) TSH 0.60 0.47 - 4.68 uIU/ml 05/21/2017 19:42 EDT [facility] BLOOD SPECIMEN / Unknown 05/21/2017 14:02 EDT 05/21/2017 14:12 EDT Maria Antonia Zimmerman MD CHEMISTRY & BLOOD GA S ORDERABLES [facility] [address] [place] [address] * T4 FREE (05/21/2017 14:02 EDT) T4, Free 1.5 0.8 - 2.2 ng/dl 05/21/2017 19:29 EDT [facility] BLOOD SPECIMEN / Unknown 05/21/2017 14:02 EDT 05/21/2017 14:12 EDT Maria Antonia Zimmerman MD CHEMISTRY & BLOOD GA S ORDERABLES Performing Organization Address [facility] Co de Phone Number [facility] [address] [place] [address] * (ABNORMAL) ELECTROLYTES (05/21/2017 14:02 EDT) Sodium 116(LL) 136 - 145 mEq/L 05/21/2017 14:53 EDT [facility] Potassium 4.1 3.5 - 5.0 mEq/L 05/21/2017 14:53 EDT [facility] Chloride 78(L) 96 - 110 mEq/L 05/21/2017 14:53 EDT [facility] CO2 28 22 - 32 mEq/L 05/21/2017 14:53 EDT [facility] Blood specimen (specimen) BLOOD SPECIMEN / Unknown 05/21/2017 14:02 EDT 05/21/2017 14:12 EDT Maria Antonia Zimmerman MD CHEMISTRY & BLOOD GA S ORDERABLES Performing Organization Address [facility] Co de Phone Number [facility] [address] [place] [address] * ECHOCARDIOGRAM (05/21/2017 10:30 EDT) Anatomical Region Laterality Modality Other 05/21/2017 10:3 0 EDT Narrative 05/21/2017 10:48 EDT *Interpreting Group:* *[facility]* [address] [place] [address] Date of study: 05/21/2017 Transthoracic Echocardiography M-mode, complete 2D, complete spectral Doppler, and color Doppler *STUDY CONCLUSIONS* Summary: 1. Left ventricle: The cavity size was normal. Wall thickness was ?? increased increased in a pattern of mild to moderate LVH. Systolic ?? function was normal. The estimated ejection fraction was 60-65%. Wall ?? motion was normal; there were no regional wall motion abnormalities. 2. Aortic valve: Trileaflet; mildly thickened, mildly calcified ?? leaflets. There was very mild stenosis. Mean gradient (S): 12mm Hg. ?? Valve area (VTI): 1.9cm^2. Valve area (Vmax): 2.1cm^2. Valve area ?? (Vmean): 1.9cm^2. 3. Left atrium: The atrium was moderately to severely dilated. 4. Right ventricle: The cavity size was normal. Wall thickness was ?? normal. Pacer wire or catheter noted in right ventricle. Systolic ?? function was normal. 5. Inferior vena cava: The vessel was normal in size. The respirophasic ?? diameter changes were in the normal range (greater than or equal to ?? 50%), consistent with normal central venous pressure. 6. Pericardium, extracardiac: A moderate, partially loculated ?? pericardial effusion was identified circumferential to the heart. ?? Posterior and lateral to the heart the effusion measures between ?? 15-18 mm. Respirophasic change in stroke volume was normal. Features ?? were not consistent with tamponade physiology. There was a left ?? pleural effusion. *PATIENT PRESENTATION* Height: ? 180.3cm ((71in) ) S/D Pressure: 108 / 72 Weight: ? 108.9kg ((239.5lb) ) BSA: ?2.37m^2 Test start time: ??09:37 AM. Test stop time: ??10:23 AM. ADMITTING ?Akash Reyes MD ATTENDING ?Andres Luis MD PERFORMING ?? [facility], Ip ORDERING ? Maria Antonia Zimmerman LINER INSERTER ??Jose G Bauer REFERRING ?Katia Mccallum *PROCEDURE DATA* Procedure information: ??The patient was identified by two identifiers. This study was interpreted by [facility]. Pertinent images and digital data are archived for permanent storage and are available for subsequent review. ??Study status: Routine. Transthoracic echocardiography. ??M-mode, complete 2D, complete spectral Doppler, and color Doppler. A Transthoracic Echocardiogram was performed. Scanning was performed from the parasternal, apical, subcostal, and suprasternal notch acoustic windows. Images were obtained using an Epiq 13 cardiac ultrasound machine. Image quality was suboptimal. The study was technically limited due to poor acoustic window availability, poor patient compliance, and body habitus. Intravenous contrast (Definity) was administered by Jose G Bauer RDCS to enhance delineation of left ventricular endocardial borders. Prior to administration at least two (2) contiguous segments of the left ventricular border were not visualized. Definity amount administered was a total of 3ml. One vial was used. ??Study completion: ??The patient tolerated the procedure well. *INDICATIONS AND HISTORY* Indications: ?? Pericardial Effusion (I31.3), known, pre-procedure. *CARDIAC ANATOMY* Left ventricle: ??The cavity size was normal. Wall thickness was increased increased in a pattern of mild to moderate LVH. Systolic function was normal. The estimated ejection fraction was 60-65%. Wall motion was normal; there were no regional wall motion abnormalities. The study is not technically sufficient to allow evaluation of LV diastolic function. Aortic valve: ?? Trileaflet; mildly thickened, mildly calcified leaflets. Doppler: ?? There was very mild stenosis. ?? There was no significant regurgitation. ?VTI ratio of LVOT to aortic valve: 0.38. Valve area (VTI): 1.9cm^2. Indexed valve area (VTI): 0.8cm^2/m^2. Peak velocity ratio of LVOT to aortic valve: 0.44. Valve area (Vmax): 2.1cm^2. Indexed valve area (Vmax): 0.9cm^2/m^2. Mean velocity ratio of LVOT to aortic valve: 0.39. Valve area (Vmean): 1.9cm^2. Indexed valve area (Vmean): 0.8cm^2/m^2. ?Mean gradient (S): 12mm Hg. Peak gradient (S): 23mm Hg. Aorta: ??Aortic root: The aortic root was normal in size. Mitral valve: ?? Structurally normal valve. ?? Mobility was not restricted. ??Doppler: ??Transvalvular velocity was within the normal range. There was no evidence for stenosis. There was no significant regurgitation. ?Peak gradient (D): 5.5mm Hg. Left atrium: ??The atrium was moderately to severely dilated. Right ventricle: ??The cavity size was normal. Wall thickness was normal. Pacer wire or catheter noted in right ventricle. Systolic function was normal. Pulmonic valve: ?Doppler: ??Transvalvular velocity was within the normal range. There was no evidence for stenosis. There was no significant regurgitation. Tricuspid valve: ?? Structurally normal valve. ?Doppler: ??Transvalvular velocity was within the normal range. There was no evidence for stenosis. There was no significant regurgitation. Pulmonary artery: ?? Pulmonary systolic pressure was within the normal range. Right atrium: ??The atrium was normal in size. Pericardium: ??A moderate, partially loculated pericardial effusion was identified circumferential to the heart. Posterior and lateral to the heart the effusion measures between 15-18 mm. ??Doppler: ??Respirophasic change in stroke volume was normal. Features were not consistent with tamponade physiology. Systemic veins: Inferior vena cava: The vessel was normal in size. The respirophasic diameter changes were in the normal range (greater than or equal to 50%), consistent with normal central venous pressure. Pleura: ??There was a left pleural effusion. Measurements Left ventricle ? Value ?Reference LV [...] Legend: (L) ??and ??(H) ??claude values outside specified reference range. I have personally reviewed the images and have reviewed and edited the reported findings. Electronically signed by Bobby Andrade MD 05/21/2017 10:48 Procedure Note Bobby Andrade MD - 05/21/2017 *Interpreting Group:* *[facility]* [address] [place] [address] Date of study: 05/21/2017 Transthoracic Echocardiography M-mode, complete 2D, complete spectral Doppler, and color Doppler *STUDY CONCLUSIONS* Summary: 1. Left ventricle: The cavity size was normal. Wall thickness was increased increased in a pattern of mild to moderate LVH. Systolic function was normal. The estimated ejection fraction was 60-65%. Wall motion was normal; there were no regional wall motion abnormalities. 2. Aortic valve: Trileaflet; mildly thickened, mildly calcified leaflets. There was very mild stenosis. Mean gradient (S): 12mm Hg. Valve area (VTI): 1.9cm^2. Valve area (Vmax): 2.1cm^2. Valve area (Vmean): 1.9cm^2. 3. Left atrium: The atrium was moderately to severely dilated. 4. Right ventricle: The cavity size was normal. Wall thickness was normal. Pacer wire or catheter noted in right ventricle. Systolic function was normal. 5. Inferior vena cava: The vessel was normal in size. The respirophasic diameter changes were in the normal range (greater than or equal to 50%), consistent with normal central venous pressure. 6. Pericardium, extracardiac: A moderate, partially loculated pericardial effusion was identified circumferential to the heart. Posterior and lateral to the heart the effusion measures between 15-18 mm. Respirophasic change in stroke volume was normal. Features were not consistent with tamponade physiology. There was a left pleural effusion. *PATIENT PRESENTATION* Height: 180.3cm ((71in) ) S/D Pressure: 108 / 72 Weight: 108.9kg ((239.5lb) ) BSA: 2.37m^2 Test start time: 09:37 AM. Test stop time: 10:23 AM. ADMITTING Akash Reyes MD ATTENDING Andres Luis MD PERFORMING [facility], Ip ORDERING Maria Antonia Zimmerman LINER INSERTER Jose G Bauer Katelyn Doran *PROCEDURE DATA* Procedure information: The patient was identified by two identifiers. This study was interpreted by [facility]. Pertinent images and digital data are archived for permanent storage and are available for subsequent review. Study status: Routine. Transthoracic echocardiography. M-mode, complete 2D, complete spectral Doppler, and color Doppler. A Transthoracic Echocardiogram was performed. Scanning was performed from the parasternal, apical, subcostal, and suprasternal notch acoustic windows. Images were obtained using an Epiq 13 cardiac ultrasound machine. Image quality was suboptimal. The study was technically limited due to poor acoustic window availability, poor patient compliance, and body habitus. Intravenous contrast (Definity) was administered by Jose G Bauer RDCS to enhance delineation of left ventricular endocardial borders. Prior to administration at least two (2) contiguous segments of the left ventricular border were not visualized. Definity amount administered was a total of 3ml. One vial was used. Study completion: The patient tolerated the procedure well. *INDICATIONS AND HISTORY* Indications: Pericardial Effusion (I31.3), known, pre-procedure. *CARDIAC ANATOMY* Left ventricle: The cavity size was normal. Wall thickness was increased increased in a pattern of mild to moderate LVH. Systolic function was normal. The estimated ejection fraction was 60-65%. Wall motion was normal; there were no regional wall motion abnormalities. The study is not technically sufficient to allow evaluation of LV diastolic function. Aortic valve: Trileaflet; mildly thickened, mildly calcified leaflets. Doppler: There was very mild stenosis. There was no significant regurgitation. VTI ratio of LVOT to aortic valve: 0.38. Valve area (VTI): 1.9cm^2. Indexed valve area (VTI): 0.8cm^2/m^2. Peak velocity ratio of LVOT to aortic valve: 0.44. Valve area (Vmax): 2.1cm^2. Indexed valve area (Vmax): 0.9cm^2/m^2. Mean velocity ratio of LVOT to aortic valve: 0.39. Valve area (Vmean): 1.9cm^2. Indexed valve area (Vmean): 0.8cm^2/m^2. Mean gradient (S): 12mm Hg. Peak gradient (S): 23mm Hg. Aorta: Aortic root: The aortic root was normal in size. Mitral valve: Structurally normal valve. Mobility was not restricted. Doppler: Transvalvular velocity was within the normal range. There was no evidence for stenosis. There was no significant regurgitation. Peak gradient (D): 5.5mm Hg. Left atrium: The atrium was moderately to severely dilated. Right ventricle: The cavity size was normal. Wall thickness was normal. Pacer wire or catheter noted in right ventricle. Systolic function was normal. Pulmonic valve: Doppler: Transvalvular velocity was within the normal range. There was no evidence for stenosis. There was no significant regurgitation. Tricuspid valve: Structurally normal valve. Doppler: Transvalvular velocity was within the normal range. There was no evidence for stenosis. There was no significant regurgitation. Pulmonary artery: Pulmonary systolic pressure was within the normal range. Right atrium: The atrium was normal in size. Pericardium: A moderate, partially loculated pericardial effusion was identified circumferential to the heart. Posterior and lateral to the heart the effusion measures between 15-18 mm. Doppler: Respirophasic change in stroke volume was normal. Features were not consistent with tamponade physiology. Systemic veins: Inferior vena cava: The vessel was normal in size. The respirophasic diameter changes were in the normal range (greater than or equal to 50%), consistent with normal central venous pressure. Pleura: There was a left pleural effusion. Measurements Left ventricle Value Reference LV ID, ED, PLAX 5.3 cm 3.5 - 6.0 LV ID, ES, PLAX 3.1 cm 2.1 - 4.0 LV PW thickness, ED, PLAX 1.3 cm LV end-diastolic volume, 1-p A2C 122 ml LV ejection fraction, 1-p A2C 70 % LV end-diastolic volume, 1-p A4C 163 ml LV ejection fraction, 1-p A4C 59 % LV e', lateral 0.069 m/sec LV E/e', lateral 17 LV e', medial 0.063 m/sec LV E/e', medial 19 LV e', average 0.066 m/sec LV E/e', average 18 Ventricular septum Value Reference IVS thickness, ED, PLAX 1.5 cm LVOT Value Reference LVOT ID, S 2.5 cm LVOT area 4.9 cm^2 LVOT peak velocity, S 1.02 m/sec LVOT mean velocity, S 0.65 m/sec LVOT VTI, S 18.4 cm LVOT mean gradient, S 2 mm Hg Aortic valve Value Reference Aortic valve peak velocity, S 2.3 m/sec Aortic valve mean velocity, S 1.66 m/sec Aortic valve VTI, S 48.4 cm Aortic mean gradient, S 12 mm Hg Aortic peak gradient, S 23 mm Hg VTI ratio, LVOT/AV 0.38 Aortic valve area, VTI 1.9 cm^2 Velocity ratio, peak, LVOT/AV 0.44 Aortic valve area, peak velocity 2.1 cm^2 Velocity ratio, mean, LVOT/AV 0.39 Aortic valve area, mean velocity 1.9 cm^2 Aortic valve area/bsa, mean velocity 0.8 cm^2/m^2 Aorta Value Reference Aortic root ID 3.4 cm Left atrium Value Reference LA ID, A-P, ES 4.7 cm LA ID/bsa, A-P 2.0 cm/m^2 <=2.2 LA area, ES, A4C (H) 40 cm^2 8.8 - 23.4 LA area, ES, A2C 42 cm^2 LA volume, ES, 2-p 177 ml LA volume/bsa, ES, 2-p 75 ml/m^2 LA/aortic root ratio 1.38 Mitral valve Value Reference Mitral E-wave peak velocity 1.17 m/sec Mitral A-wave peak velocity 1.18 m/sec Mitral deceleration time (H) 254 ms 150 - 230 Mitral peak gradient, D 5.5 mm Hg Mitral E/A ratio, peak 1 Legend: (L) and (H) claude values outside specified reference range. I have personally reviewed the images and have reviewed and edited the reported findings. Electronically signed by Bobby Andrade MD 05/21/2017 10:48 Maria Antonia Zimmerman MD CARDIAC ECHO ORDERAB LES * (ABNORMAL) ELECTROLYTES (05/21/2017 9:55 EDT) Sodium 117(LL) 136 - 145 mEq/L 05/21/2017 11:15 [facility] Potassium 3.7 3.5 - 5.0 mEq/L 05/21/2017 11:15 [facility] Chloride 77(L) 96 - 110 mEq/L 05/21/2017 11:15 [facility] CO2 30 22 - 32 mEq/L 05/21/2017 11:15 [facility] Blood specimen (specimen) BLOOD SPECIMEN / Unknown 05/21/2017 9:55 EDT 05/21/2017 10:59 EDT Maria Antonia Zimmerman MD CHEMISTRY & BLOOD GA S ORDERABLES [facility] [address] [place] [address] * EKG 12-LEAD (05/21/2017 7:12 EDT) 05/21/2017 7:12 EDT Narrative [facility] - 05/23/2017 15:04 EDT ? [facility] ? Test Date: ?2017-05-21 Pat Name: ? DAVID MERA ?Department: ?? [facility] ? Room: ? MW531 Gender: ? 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 [id number] : ?1950 ? Requested By: PRADIP MONET Order Number: [id number] ? Martha OAKES: ?? SENG PERSON SA, MD ? Measurements Intervals ?[place] ? Rate: ? 75 ? P: ?31 MS: ? 173 ?QRS: ?-73 QRSD: ? 183 ?T: ?174 QT: ? 527 ? QTc: ?590 ? Interpretive Statements ELECTRONIC VENTRICULAR PACEMAKER ABNORMAL RHYTHM ECG Automated Interpretation. ??Provider Interpretation to follow. Compared to ECG 05/21/2017 01:25:47 Sinus rhythm no longer present I reviewed the tracing and have either agreed or edited the findings in this report. Electronically Signed On 05-23-17 15:04:53 EDT by SENG PERSON SA, MD. Procedure Note Seng Brody Sa, MD - 05/23/2017 [facility] Test Date: 2017-05-21 Pat Name: DAVID MERA Department: [facility] Room: 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 Provider Interpretation to follow. Compared to ECG 05/21/2017 01:25:47 Sinus rhythm no longer present I reviewed the tracing and have either agreed or edited the findings inthis report. Electronically Signed On 05-23-17 15:04:53 EDT by SENG WRIGHT MD. Maria Antonia Zimmerman MD CARDIAC ECG ORDERABL ES Performing Organization Address [facility]/ZIP Co de Phone Number [facility] EKG * INPATIENT ADD-ON (05/21/2017 6:55 EDT) Tests to be added MAGNESIUM 05/21/2017 6:53 EDT [facility] Number for problems [id number] 05/21/2017 7:10 EDT [facility] Accession number [id number] 05/21/2017 7:10 EDT [facility] TOPOGRAPHY UNKNOWN / Unknown 05/21/2017 6:55 EDT 05/21/2017 7:10 EDT Maria Antonia Zimmerman MD HEMATOLOGY & PF4 ORD ERABLES Performing Organization Address [facility] Co de Phone Number [facility] [address] [place] [address] * INPATIENT ADD-ON (05/21/2017 6:40 EDT) Tests to be added ALT,ALK PHOS,AST,T OTAL BILI,ALBUM IN 05/21/2017 6:38 EDT [facility] Number for problems [id number] 05/21/2017 6:50 EDT [facility] Accession number [id number] 05/21/2017 6:50 EDT [facility] TOPOGRAPHY UNKNOWN / Unknown 05/21/2017 6:40 EDT 05/21/2017 6:49 EDT Maria Antonia Zimmerman MD HEMATOLOGY & PF4 ORD ERABLES Performing Organization Address [facility]/ZIP Co de Phone Number [facility] [address] [place] [address] * MAGNESIUM (05/21/2017 5:57 EDT) Magnesium 1.8 1.7 - 2.8 mg/dl 05/21/2017 7:53 EDT [facility] BLOOD SPECIMEN / Unknown 05/21/2017 5:57 EDT 05/21/2017 6:09 EDT Maria Antonia Zimmerman MD CHEMISTRY & BLOOD [place] S ORDERABLES [facility] [address] [place] [address] * BILIRUBIN, TOTAL (05/21/2017 5:57 EDT) Bilirubin, Total 0.6 <1.4 mg/dl 05/21/2017 7:30 EDT [facility] BLOOD SPECIMEN / Unknown 05/21/2017 5:57 EDT 05/21/2017 6:09 EDT Maria Antonia Zimmerman MD CHEMISTRY & BLOOD GA S ORDERABLES Performing Organization Address City/[facility]/ZIP Co de Phone Number [facility] [address] [place] [address] * AST (05/21/2017 5:57 EDT) AST 33 15 - 46 U/L 05/21/2017 7:30 EDT [facility] BLOOD SPECIMEN / Unknown 05/21/2017 5:57 EDT 05/21/2017 6:09 EDT Maria Antonia Zimmerman MD CHEMISTRY & BLOOD GA S ORDERABLES Performing Organization Address [facility]/ZIP Co de Phone Number [facility] [address] [place] [address] * ALT (05/21/2017 5:57 EDT) ALT 39 21 - 72 U/L 05/21/2017 7:30 EDT [facility] BLOOD SPECIMEN / Unknown 05/21/2017 5:57 EDT 05/21/2017 6:09 EDT Maria Antonia Zimmerman MD CHEMISTRY & BLOOD GA S ORDERABLES Performing Organization Address City/[facility]/ZIP Co de Phone Number [facility] [address] [place] [address] * ALKALINE PHOSPHATASE (05/21/2017 5:57 EDT) Total Alkaline Phosphatase 81 38 - 126 U/L 05/21/2017 7:30 EDT [facility] BLOOD SPECIMEN / Unknown 05/21/2017 5:57 EDT 05/21/2017 6:09 EDT Maria Antonia Zimmerman MD CHEMISTRY & BLOOD GA S ORDERABLES Performing Organization Address [facility] Co de Phone Number [facility] [address] [place] [address] * (ABNORMAL) ALBUMIN (05/21/2017 5:57 EDT) Albumin 3.0(L) 3.4 - 4.9 g/dl 05/21/2017 7:30 EDT [facility] BLOOD SPECIMEN / Unknown 05/21/2017 5:57 EDT 05/21/2017 6:09 EDT Maria Antonia Zimmerman MD CHEMISTRY & BLOOD GA S ORDERABLES Performing Organization Address [facility] Co de Phone Number [facility] [address] [place] [address] * (ABNORMAL) ELECTROLYTES (05/21/2017 5:57 EDT) Sodium 117(LL) 136 - 145 mEq/L 05/21/2017 6:47 EDT [facility] Potassium 3.5 3.5 - 5.0 mEq/L 05/21/2017 6:47 EDT [facility] Chloride 76(L) 96 - 110 mEq/L 05/21/2017 6:47 EDT [facility] CO2 31 22 - 32 mEq/L 05/21/2017 6:47 EDT [facility] Blood specimen (specimen) BLOOD SPECIMEN / Unknown 05/21/2017 5:57 EDT 05/21/2017 6:12 EDT Maria Antonia Zimmerman MD CHEMISTRY & BLOOD GA S ORDERABLES Performing Organization Address [facility] Co de Phone Number [facility] [address] [place] [address] * (ABNORMAL) PROTIME (05/21/2017 5:57 EDT) Pro Time 16.3(H) 10.3 - 13.4 secs 05/21/2017 6:30 EDT [facility] Comment:NOTE NEW REFERENCE R ANTONIETA OF APR 03 2017 I.N.R. 1.4(H) 0.9 - 1.1 Ratio 05/21/2017 6:30 EDT [facility] Comment: Moderate Intensity Coumadin INR = 2.0-3.0 Adjustments in anticoagulant therapy dose should be based upon the INR and NOT the Pro Time. Blood specimen (specimen) BLOOD SPECIMEN / Unknown 05/21/2017 5:57 EDT 05/21/2017 6:09 EDT Maria Antonia Zimmerman MD HEMATOLOGY & PF4 ORD ERABLES Performing Organization Address [facility] Co de Phone Number [facility] [address] [place] [phone] * HIV 1/2 ANTIGEN AND ANTIBODY, 4TH GENERATION (05/21/2017 5:57 EDT) Pathologist [facility] HIV 1/2 Antibody Negative Negative 05/22/19 18 11:32 EDT [facility] Comment: Fourth generation assay performed on the Siemens VIVAaur. If acute HIV-1 infection is suspected in a high risk patient, submit plasma specimen for HIV-1 RNA quantification test. Blood specimen (specimen) BLOOD SPECIMEN / Unknown 05/21/2017 5:57 EDT 05/21/2017 6:09 EDT Maria Antonia Zimmerman MD IMMUNOLOGY AND SEROL OGY ORDERABLES Performing Organization Address [facility] Co de Phone Number [facility] [address] [place] [phone] * (ABNORMAL) BUN (05/21/2017 5:57 EDT) BUN 5(L) 10 - 26 mg/dl 05/21/2017 6:34 EDT [facility] Blood specimen (specimen) BLOOD SPECIMEN / Unknown 05/21/2017 5:57 EDT 05/21/2017 6:09 EDT Maria Antonia Zimmerman MD CHEMISTRY & BLOOD GA S ORDERABLES [facility] [address] [place] [address] * (ABNORMAL) CREATININE (05/21/2017 5:57 EDT) Creatinine 0.43(L) 0.66 - 1.25 mg/dl 05/21/2017 6:34 EDT [facility] GFR, Calculated 120 >60 ml/min/1.7 3m2 05/21/2017 6:34 EDT [facility] Comment: eGFR calculated using CKD-EPI equation for non Americans. Multiply eGFR by 1.16 for Americans. Blood specimen (specimen) BLOOD SPECIMEN / Unknown 05/21/2017 5:57 EDT 05/21/2017 6:09 EDT Maria Antonia Zimmerman MD CHEMISTRY & BLOOD GA S ORDERABLES Performing Organization Address City/[facility]/ZIP Co de Phone Number [facility] [address] [place] [address] * (ABNORMAL) HEMAGRAM AND DIFFERENTIAL (05/21/2017 5:57 EDT) WBC 6.90 4.0 - 10.4 K/cmm 05/21/2017 6:30 T [facility] RBC 3.25(L) 4.36 - 5.78 M/cmm 05/21/2017 6:30 T [facility] Hemoglobin 10.9(L) 13.8 - 17.3 gm/dl 05/21/2017 6:30 EDT [facility] HCT 29.7(L) 39.5 - 50.2 % 05/21/2017 6:30 [facility] MCV 91 81 - 95 fl 05/21/2017 6:30 [facility] MCH 33.5(H) 27.6 - 33.0 pg 05/21/2017 6:30 [facility] MCHC 36.7(H) 32.8 - 36.4 gm/dl 05/21/2017 6:30 [facility] RDW-CV 10.6 <14.2 % 05/21/2017 6:30 [facility] RDW-SD 36.1 <46.0 fl 05/21/2017 6:30 [facility] PLT 266 141 - 377 K/cmm 05/21/2017 6:30 [facility] MPV 10.7 9.5 - 12.7 fl 05/21/2017 6:30 [facility] % Neutrophils 61.6 % 05/21/2017 6:30 [facility] % Lymphocytes 19.0 % 05/21/2017 6:30 [facility] % Monocytes 16.7 % 05/21/2017 6:30 [facility] % Eosinophils 1.6 % 05/21/2017 6:30 [facility] % Basophils 0.7 % 05/21/2017 6:30 [facility] % Immature Grans 0.4 % 05/21/2017 6:30 [facility] ABS Neutrophils 4.25 2.20 - 8.85 K/cmm 05/21/2017 6:30 [facility] ABS Lymphs 1.31 1.09 - 3.30 K/cmm 05/21/2017 6:30 [facility] ABS Monocytes 1.15(H) 0.1 - 0.8 K/cmm 05/21/2017 6:30 [facility] ABS Eosinophils 0.11 0.03 - 0.61 K/cmm 05/21/2017 6:30 [facility] ABS Basophils 0.05 0.01 - 0.11 K/cmm 05/21/2017 6:30 EDT [facility] ABS Immature Grans 0.03 0 - 0.06 K/cmm 05/21/2017 6:30 EDT [facility] Type of Diff: Automated 05/21/2017 6:30 EDT [facility] Blood specimen (specimen) BLOOD SPECIMEN / Unknown 05/21/2017 5:57 EDT 05/21/2017 6:09 EDT Maria Antonia Zimmerman MD PACKAGES & DNA PROBE ORDERABLES Performing Organization Address [facility] de Phone Number [facility] [address] [place] [address] * (ABNORMAL) ELECTROLYTES (05/21/2017 3:28 EDT) Sodium 116(LL) 136 - 145 mEq/L 05/21/2017 4:01 EDT [facility] Potassium 3.3(L) 3.5 - 5.0 mEq/L 05/21/2017 4:01 EDT [facility] Chloride 77(L) 96 - 110 mEq/L 05/21/2017 4:01 EDT [facility] CO2 31 22 - 32 mEq/L 05/21/2017 4:01 EDT [facility] Blood specimen (specimen) BLOOD SPECIMEN / Unknown 05/21/2017 3:28 EDT 05/21/2017 3:35 EDT Maria Antonia Zimmerman MD CHEMISTRY & BLOOD GA S ORDERABLES Performing Organization Address [facility] Co de Phone Number [facility] [address] [place] [address] * EKG 12-LEAD (05/21/2017 1:25 EDT) 05/21/2017 1:25 EDT Narrative [facility] - 05/23/2017 10:35 EDT ? [facility] ? Test Date: ?2017-05-21 Pat Name: ? DAVID MERA ?Department: ?? [facility] ? Room: ? MW531 Gender: ? 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 [id number] : ?1950 ? Requested By: PRADIP MONET Order Number: [id number] ? Reading MD: ?? PIERRE RUBIO MD ? Measurements Intervals ?[place] ? Rate: ? 75 ? P: ?13 MS: ? 160 ?QRS: ?-81 QRSD: ? 185 ?T: ?171 QT: ? 495 ? QTc: ?556 ? Interpretive Statements SINUS RHYTHM WITH ATRIAL TRACKING and VENTRICULAR PACING Compared to ECG 05/03/2017 04:23:33 No significant changes I reviewed the tracing and have either agreed or edited the findings in this report. Electronically Signed On 05-23-17 10:35:38 EDT by PIERRE RUBIO MD. Procedure Note Pierre Rubio MD - 05/23/2017 [facility] Test Date: 2017-05-21 Pat Name: DAVID MERA Department: [place] [address] Room: [facility] Gender: M Food Stand Manager: [id number] : 1950 Requested By: PRADIP MONET Order Number: [id number] Martha MD: PIERRE RUBIO MD Measurements Intervals [place] Rate: 75 P: 13 MS: 160 QRS: -81 QRSD: 185 T: 171 QT: 495 QTc: 556 Interpretive Statements SINUS RHYTHM WITH ATRIAL TRACKING and VENTRICULAR PACING Compared to ECG 05/03/2017 04:23:33 No significant changes I reviewed the tracing and have either agreed or edited the findings inthis report. Electronically Signed On 05-23-17 10:35:38 EDT by PIERRE YEBOAH. Maria Antonia Zimmerman MD CARDIAC ECG ORDERABL ES [facility] * INPATIENT ADD-ON (05/21/2017 0:00 EDT) Tests to be added URINE OSM 05/20/2017 23:58 EDT [facility] Number for problems Not Given 05/21/2017 0:02 EDT [facility] Accession number [id number] 05/21/2017 0:02 EDT [facility] TOPOGRAPHY UNKNOWN / Unknown 05/21/2017 05/21/2017 0:02 EDT Maria Antonia Zimmerman MD HEMATOLOGY & PF4 ORD ERABLES [facility] [address] [place] [address] * OSMOLALITY, URINE (05/20/2017 23:45 EDT) Osmolality, Ur 251 150 - 1,150 mos/kg 05/21/2017 0:15 EDT [facility] URINE / Unknown 05/20/2017 2 3:45 EDT 05/20/2017 23:55 EDT Laly Kim MD URINALYSIS ORDERRyan PFEIFFER Performing Organization Address [facility] Co de Phone Number [facility] [address] [place] [address] * SODIUM, URINE RANDOM (05/20/2017 23:45 EDT) Sodium, Ur 18.0 mEq/L 05/21/2017 0:18 EDT [facility] Urine specimen (specimen) URINE / Unknown 05/20/2017 23:45 EDT 05/20/2017 23:55 EDT Laly Kim MD URINALYSIS ORDERRyan PFEIFFER Performing Organization Address [facility] Co de Phone Number [facility] [address] [place] [address] * CREATININE, URINE RANDOM (05/20/2017 23:45 EDT) Creatinine, Urn Omer 43.1 mg/dl 05/21/2017 0:18 EDT [facility] Urine specimen (specimen) URINE / Unknown 05/20/2017 23:45 EDT 05/20/2017 23:55 EDT Laly Kim MD URINALYSIS ORDERRyan PFEIFFER Performing Organization Address City/[facility]/ZIP Co de Phone Number [facility] [address] [place] [address] * POCT US CARDIAC (05/20/2017 22:45 EDT) Anatomical Region Laterality Modality Other 05/20/2017 22:4 5 EDT 05/20/2017 23:51 EDT Narrative 05/20/2017 23:51 EDT [facility] - Ultrasound Exam Date: 05/20/2017 Exam Type: POCT US CARDIAC Manuscripts Curator: Laly iKm MD Attending: Laly Kim MD Worksheet: POCUS_Cardiac Exam Information: Exam Type: ?? Clinically indicated Indication(s) for Exam: ?? The exam was performed with the following indications: Dyspnea Views Obtained ?? The pericardial sac, myocardium, 4 chambers, and IVC were identified using the following views: ALL OF THE VIEWS ABOVE WERE OBTAINED, Difficult study with limited windows Findings: ?? Pericardial Effusion: Large pericardial effusion ?? Cardiac activity: Cardiac activity normal ?? LV function: Normal (> 50% EF) ?? RV diameter: Normal ?? Other signs of RV strain ?? IVC collapsibility: High collapsibility (>50%) Interpretation: ?? Normal limited cardiac ultrasound ?? Pericardial effusion ?? Pericardial tamponade ?? Diminished LV function ?? RV strain ?? Cardiac standstill ?? Indeterminate Confirmatory study: ?? What confirmatory study was done?: Not applicable Physician Signature: ?? I review and approve of the documentation above.: Signed by Laly Kim MD on Saturday, May 20, 2017 at 11:50:56 PM This exam was performed and interpreted by the [facility] ED Staff Procedure Note Laly Kim MD - 05/20/2017 [facility] - Ultrasound Exam Date: 05/20/2017 Exam Type: POCT US CARDIAC Manuscripts Curator: Laly Kim MD Attending: Laly Kim MD Worksheet: POCUS_Cardiac Exam Information: Exam Type: Clinically indicated Indication(s) for Exam: The exam was performed with the following indications: Dyspnea Views Obtained The pericardial sac, myocardium, 4 chambers, and IVC were identified using the following views: ALL OF THE VIEWS ABOVE WERE OBTAINED, Difficult study with limited windows Findings: Pericardial Effusion: Large pericardial effusion Cardiac activity: Cardiac activity normal LV function: Normal (> 50% EF) RV diameter: Normal Other signs of RV strain IVC collapsibility: High collapsibility (>50%) Interpretation: Normal limited cardiac ultrasound Pericardial effusion Pericardial tamponade Diminished LV function RV strain Cardiac standstill Indeterminate Confirmatory study: What confirmatory study was done?: Not applicable Physician Signature: I review and approve of the documentation above.: Signed by Laly Kim MD on Saturday, May 20, 2017 at 11:50:56 PM This exam was performed and interpreted by the [facility] ED Staff Laly Kim MD IMG POCT US ORDER IRWIN * (ABNORMAL) BASIC METABOLIC PANEL (BMP) (05/20/2017 22:40 EDT) Sodium 116(LL) 136 - 145 mEq/L 05/20/2017 23:14 [facility] Potassium 3.6 3.5 - 5.0 mEq/L 05/20/2017 23:14 [facility] Chloride 74(L) 96 - 110 mEq/L 05/20/2017 23:14 [facility] CO2 32 22 - 32 mEq/L 05/20/2017 23:14 [facility] BUN 6(L) 10 - 26 mg/dl 05/20/2017 23:14 [facility] Creatinine 0.44(L) 0.66 - 1.25 mg/dl 05/20/2017 23:14 [facility] GFR, Calculated 119 >60 ml/min/1.7 3m2 05/20/2017 23:14 [facility] Comment: eGFR calculated using CKD-EPI equation for non Americans. Multiply eGFR by 1.16 for Americans. Calcium 8.7 8.5 - 10.5 mg/dl 05/20/2017 23:14 [facility] Calculated Calcium 9.2 8.5 - 10.5 mg/dl 05/20/2017 23:14 [facility] Glucose, Serum 108(H) 70 - 100 mg/dl 05/20/2017 23:14 [facility] Fasting? Unknown 05/20/2017 23:14 [facility] Blood specimen (specimen) BLOOD SPECIMEN / Unknown 05/20/2017 22:40 EDT 05/20/2017 22:58 EDT Laly Kim MD CHEMISTRY & BLOOD GAS ORDERABLES [facility] [address] [place] [address] documented in this encounter Visit Diagnoses Diagnosis Hyponatremia Hyposmolality and/or hyponatremia Pericardial effusion Unspecified disease of pericardium Heart block Conduction disorder, unspecified Acute on chronic diastolic congestive heart failure (HCC-CMS) Acute on chronic diastolic heart failure Acute pericarditis, unspecified type Hyponatremia Hyposmolality and/or hyponatremia Pericardial effusion Unspecified disease of pericardium Acute pericarditis Acute pericarditis, unspecified Acute on chronic diastolic congestive heart failure (HCC-CMS) Acute on chronic diastolic heart failure documented in this encounter Administered Medications Inactive Administered Medications - up to 3 most recent administrations Medication Order MAR Action Action Date Dose Rate Site acetaminophen (TYLENOL) tablet 650 mg 650 mg, oral, EVERY 4 HOURS PRN, Starting on Fri05/21/17 at 0126, Until Fri05/27/17 at 1651, Pain, Routine Given 05/25/2017 10:25 EDT 650 mg Given 05/21/2017 21:11 EDT 650 mg bacitracin injection topical, PRN, Starting on Fri05/21/17 at 1906, Until Fri05/21/17 at 1906, Routine Given 05/21/2017 19:06 EDT 50,000 Units Left Chest ceFAZolin (ANCEF) 2 g in sodium chloride 0.9% 50 mL IVPB 2 g, intravenous, Administer over 30 Minutes, EVERY 8 HOURS, 3 doses, First dose on [place] 05/22/17 at 0000, Last dose on [place] 05/22/17 at 1600, Routine, Postprocedure Given 05/22/2017 16:09 EDT 2 g Given 05/22/2017 8:20 EDT 2 g Given 05/22/2017 0:02 EDT 2 g ceFAZolin (ANCEF) injection intravenous, PRN, Starting on Fri05/21/17 at 1658, Until Fri05/21/17 at 1658, Routine Given 05/21/2017 16:58 EDT 2 g chlorhexidine gluconate 2 % cloth 1 Each 1 Each, topical, PRE-OP MULTIPLE, 2 doses, Starting on Fri05/21/17 at 1622, Until Fri05/27/17 at 1651, Other, Pre-Procedure, Routine colchicine (COLCRYS) tablet 0.6 mg 0.6 mg, oral, 2 TIMES DAILY, First dose on Fri05/27/17 at 0915, Until Discontinued, STAT Given 05/27/2017 9:47 EDT 0.6 m g fentaNYL citrate (PF) 50 mcg/mL injection intravenous, PRN, Starting on Fri05/21/17 at 1657, Until Fri05/21/17 at 1805, Routine Given 05/21/2017 18:05 EDT 25 mc g Given 05/21/2017 17:48 EDT 25 mcg Given 05/21/2017 17:22 EDT 25 mcg ibuprofen (MOTRIN) tablet 600 mg 600 mg, oral, EVERY 6 HOURS, 2 doses, First dose on Fri05/26/17 at 1900, Last dose on Fri05/27/17 at 0100, Routine Given 05/26/2017 18:56 EDT 600 mg ibuprofen (MOTRIN) tablet 600 mg 600 mg, oral, 3 TIMES DAILY, First dose on Fri05/27/17 at 0915, Until Discontinued, Routine Given 05/27/2017 13:24 EDT 6 00 mg Given 05/27/2017 9:47 EDT 600 mg ketOROLAC (TORADOL) injection 15 mg 15 mg, intravenous, EVERY 6 HOURS, 20 doses, First dose on Fri05/21/17 at 2030, Last dose on Fri05/26/17 at 1430, Routine, Postprocedure Given 05/25/2017 4:01 EDT 15 mg Given 05/24/2017 20:36 EDT 15 mg Given 05/24/2017 15:37 EDT 15 mg magnesium sulfate 2 g in water 50 mL 2 g, intravenous, Administer over 30 Minutes, NOW X1, 1 dose, On Fri05/21/17 at 0830, Routine Given 05/21/2017 8:10 EDT 2 g magnesium sulfate 2 g in water 50 mL 2 g, intravenous, Administer over 30 Minutes, NOW X1, 1 dose, On Fri05/23/17 at 0815, Routine Given 05/23/2017 8:48 EDT 2 g midazolam (PF) (VERSED) 1 mg/mL injection intravenous, PRN, Starting on Fri05/21/17 at 1657, Until Fri05/21/17 at 1837, Routine Given 05/21/2017 18:37 EDT 1 mg Given 05/21/2017 18:05 EDT 1 mg Given 05/21/2017 17:48 EDT 1 mg potassium chloride (KLOR-CON) packet 40 mEq 40 mEq, oral, NOW X1, 1 dose, On Fri05/23/17 at 1215, STAT Given 05/23/2017 12:17 EDT 40 mEq potassium chloride SA (K-DUR, KLOR-CON) tablet 20 mEq 20 mEq, oral, NOW X1, 1 dose, On Fri05/21/17 at 0715, Routine Given 05/21/2017 8:11 EDT 20 mEq sodium chloride 0.9 % (NS) infusion at 75 mL/hr, intravenous, CONTINUOUS, Starting on Fri05/21/17 at 0430, Until Fri05/21/17 at 0819, Routine New Bag 05/21/2017 4:22 EDT 75 mL/hr sodium chloride 0.9 % (NS) infusion intravenous, FA IP EQF CONTINUOUS PRN FOR ONE STEP MEDS, Starting on Fri05/21/17 at 1650, Until Fri05/21/17 at 1824, Routine New Bag 05/21/2017 18:24 EDT 100 mL/hr 100 mL/h r New Bag 05/21/2017 16:50 EDT 100 mL/hr 100 mL/hr sodium chloride 0.9 % BOLUS 1,000 mL 1,000 mL, intravenous, NOW X1, 1 dose, On Fri05/20/17 at 2345, STAT New Bag 05/20/2017 23:49 EDT 1,000 mL sodium chloride 0.9 % flush 3 mL 3 mL, intravenous, EVERY 8 HOURS, First dose on Fri05/21/17 at 0145, Until Discontinued, Routine Given 05/27/2017 8:22 EDT 3 mL Given 05/26/2017 22:00 EDT 3 mL Given 05/26/2017 17:05 EDT 3 mL torsemide (DEMADEX) tablet 10 mg 10 mg, oral, DAILY, First dose on Fri05/22/17 at 0900, Until Discontinued, Routine Given 05/22/2017 8:19 EDT 10 mg torsemide (DEMADEX) tablet 20 mg 20 mg, oral, NOW X1, 1 dose, On [place] 05/22/17 at 1415, STAT Given 05/22/2017 15:13 EDT 20 mg torsemide (DEMADEX) tablet 40 mg 40 mg, oral, DAILY, First dose (after last modification) on 05/23/17 at 0900, Until Discontinued, Routine Given 05/23/2017 10:25 EDT 40 mg torsemide (DEMADEX) tablet 40 mg 40 mg, oral, 2 TIMES DAILY WITH BREAKFAST & DINNER, First dose (after last modification) on 05/23/17 at 1700, Until Discontinued, Routine Given 05/23/2017 17:14 EDT 40 mg torsemide (DEMADEX) tablet 40 mg 40 mg, oral, DAILY, First dose on 05/24/17 at 1030, Until Discontinued, Routine Given 05/25/2017 8:08 EDT 40 mg Given 05/24/2017 10:38 EDT 40 mg torsemide (DEMADEX) tablet 40 mg 40 mg, oral, NOW X1, 1 dose, On 05/24/17 at 1900, Routine Given 05/24/2017 20:35 EDT 40 mg torsemide (DEMADEX) tablet 40 mg 40 mg, oral, 2 TIMES DAILY WITH BREAKFAST & DINNER, First dose (after last modification) on 05/25/17 at 1700, Until Discontinued, Routine Given 05/27/2017 8:21 EDT 40 mg Given 05/26/2017 17:23 EDT 40 mg Given 05/26/2017 8:29 EDT 40 mg documented in this encounter Discontinued Medications Medication Sig Discontinue Reason Start Date End Da te amLODIPine (NORVASC) 10 mg tablet Take 1 Tab by mouth daily. Alternate therapy 05/04/2017 05/20/2017 chlorthalidone (HYGROTON) 25 mg tablet Take 1 Tab by mouth daily. Alternate therapy 05/05/2017 05/20/2017 lisinopril (PRINIVIL, ZESTRIL) 5 mg tablet Take 5 mg by mouth daily. Patient Stopped Taking 05/27/2017 furosemide (LASIX) 40 mg tablet Take 40 mg by mouth daily. Patient Stopped Taking 05/27/2017 documented as of this encounter Historical Medications * This list may reflect changes made after this encounter. Medication Sig Dispensed Refills Start Date End Date acetaminophen (TYLENOL) 500 mg tablet Take 1,000 mg by mouth 2 times daily. lisinopril (PRINIVIL, ZESTRIL) 5 mg tablet Take 5 mg by mouth daily. 05/27/2017 furosemide (LASIX) 40 mg tablet Take 40 mg by mouth daily. 05/27/2017 added in this encounter Active and Recently Administered Medications Times are shown in EDT. Scheduled Medication Order 05/25/2017 05/26/2017 05/27/2017 colchicine (COLCRYS) tablet 0.6 mg 0.6 mg, oral, 2 TIMES DAILY, First dose on Fri05/27/17 at 0915, Until Discontinued, STAT 0947 (Given - Provider: Rupert Earl RN) ibuprofen (MOTRIN) tablet 600 mg (CANCELED) 600 mg, oral, EVERY 6 HOURS, 2 doses, First dose on Fri05/26/17 at 1900, Last dose on Fri05/27/17 at 0100, Routine 1856 (Given - Provider: Rupert Earl RN) 0046 (Not Given - Provider: Omayra Farley RN - Reason: Patient/family refused) ibuprofen (MOTRIN) tablet 600 mg 600 mg, oral, 3 TIMES DAILY, First dose on Fri05/27/17 at 0915, Until Discontinued, Routine 0947 (Given - Provider: Rupert Earl RN)1324 (Given - Provider: Rupert Earl RN) ketOROLAC (TORADOL) injection 15 mg (CANCELED) 15 mg, intravenous, EVERY 6 HOURS, 20 doses, First dose on Fri05/21/17 at 2030, Last dose on Fri05/26/17 at 1430, Routine, Postprocedure 0401 (Given - Provider: Sigrid Gordon RN) sodium chloride 0.9 % flush 3 mL 3 mL, intravenous, EVERY 8 HOURS, First dose on Fri05/21/17 at 0145, Until Discontinued, Routine 0809 (Given - Provider: Rupert Earl RN)1513 (Given - Provider: Rupert Earl RN)2230 (Given - Provider: Omayra Farley RN) 0831 (Given - Provider: Rupert Earl RN)1705 (Given - Provider: Rupert Earl RN)2200 (Given - Provider: Omayra Farley, TISH) 0822 (Given - Provider: Rupert Earl RN) torsemide (DEMADEX) tablet 40 mg (CANCELED) 40 mg, oral, DAILY, First dose on 05/24/17 at 1030, Until Discontinued, Routine 0808 (Given - Provider: Rupert Earl RN) torsemide (DEMADEX) tablet 40 mg 40 mg, oral, 2 TIMES DAILY WITH BREAKFAST & DINNER, First dose (after last modification) on 05/25/17 at 1700, Until Discontinued, Routine 1633 (Given - Provider: Rupert Earl RN) 0829 (Given - Provider: Rupert Earl RN)1723 (Given - Provider: Rupert Earl RN) 0821 (Given - Provider: Rupert Earl RN) PRN Medication Order 05/25/2017 05/26/2017 05/27/2017 acetaminophen (TYLENOL) tablet 650 mg 650 mg, oral, EVERY 4 HOURS PRN, Starting on Fri05/21/17 at 0126, Until Fri05/27/17 at 1651, Pain, Routine 1025 (Given - Provider: Rupert Earl RN) chlorhexidine gluconate 2 % cloth 1 Each 1 Each, topical, PRE-OP MULTIPLE, 2 doses, Starting on Fri05/21/17 at 1622, Until Fri05/27/17 at 1651, Other, Pre-Procedure, Routine documented in this encounter Orders Medications Ordered That Tom ht Not Have Been Administered Count Last Ordered Date First Ordered Date potassium chloride infusion 20 mEq 1 2017 enoxaparin (LOVENOX) injection 40 mg 1 05/02 torsemide (DEMADEX) tablet 20 mg 1 05/23/19 18 chlorhexidine gluconate 2 % cloth 1 Each 1 05/21/2017 Diet Count Last Ordered Date First Orde red Date DISCHARGE DIET 3 05/27/2017 Nursing Count Last Ordered Date First Orde red Date BATHING INSTRUCTIONS 1 05/27/2017 WOUND CARE INSTRUCTIONS 2 05/27/2017 BEDREST 1 05/21/2017 CONTRAINDICATION TO ANTICOAG ULATION THERAPY 1 05/21/2017 MEASURE WEIGHT 1 05/21/2017 PERICARDIOCENTESIS TRAY TO BEDSIDE 1 2017 VTE PHARMACOLOGIC PROPHYLAXI S CURRENTLY ORDERED OR ON ALTERNATIVE THER 1 05/21/2017 ED TELEMETRY MONITORING 1 05/20/2017 INSERT SALINE LOCK 1 05/20/2017 Consult Count Last Ordered Date First Orde red Date CONSULT PACER/AICD/DEVICE CHK 1 05/21/2017 Respiratory Care Count Last Ordered Date First Ordered Date AIRWAY CLEARANCE THERAPY 3 05/26/2017 INCENTIVE SPIROMETRY RT 3 05/26/2017 Admission Count Last Ordered Date First Orde red Date STATUS: INPATIENT ACUTE ADMISSION 1 018 ED BED REQUEST 1 05/20/2017 Transfer Count Last Ordered Date First Orde red Date NOTIFY PPS OF DISCHARGE COMPLETE 1 05/28/19 18 CHANGE ATTENDING TO: 3 05/26/2017 018 PPS NOTIFICATION OF PATIENT ARRIVAL ON UNIT 1 05/21/2017 UR PATIENT STATUS CHANGE 1 05/21/2017 Discharge Count Last Ordered Date First Orde red Date DISCHARGE PATIENT 1 05/27/2017 Legal Count Last Ordered Date First Orde red Date MISCELLANEOUS DISCHARGE INSTRUCTIONS 2 05/02 documented in this encounter Care Teams Electrocardiogram Technician Relationship Specialty Start Date End Date Katia Stone, PABijalC [address] [place] [id number] PCP - General 05/02/17 documented as of this encounter
--- OUTSIDE RECORDS SUMMARY | 2023-09-22 18:58 | XMS_ITS | Encounter Summary ---
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 encounter Miscellaneous Notes * Plan of Care - Katie Smith RN [...] further questions, and states he understands discharge instructions. Signed copy of AVS received. Pt left with son and [id number] via wheelchair. BP 115/79 (BP Cuff Location: Right arm, Patient Position: Semi fowlers) Pulse 70 Temp 36.4 ??C (97.5 ??F) (Tympanic) Resp 18 Ht 180.3 cm (71) Wt 99.8 kg (220 lb) SpO2 99% BMI 30.68 kg/m2 * Plan of Care - Meet Matias RN - 05/03/2017 1523 EST Problem: [...] supposed to be discharged today, however pt states that he had gotten up and was talking to his roommate, but all of the sudden felt dizzy/lightheaded. Pt returned to his bed and the dizziness went away. Pt told MD on rounds. MD wanting to watch pt a little further. VSS will continue to monitor. MEET MATIAS RN 05/03/2017 15:19 * Plan of Care - Don Alvarado RN - 05/02/2017 8912 EST Problem: Daily Care Plan Goals Goal: [...] the night. DON ALVARADO RN 05/02/2017 23:42 * Plan of Care - Meet Matias RN - 05/02/2017 4107 EST Problem: Daily Care Plan Goals Goal: [...] Pt A/O x 3. Pt had permanent pacemaker placed today. Action: Assessment and meds given per MAY. Pt was on bedrest for 3 hrs following the procedure. Post procedure pts bps elevated and MD notified. Pts incision is C/D/I. Response: Pt has no incisional pain following pacemaker placement. Pt has been drinking and voidingpost procedure. Pt hasn't really wanted to eat. Pt states he doesn't normally eat much at home either. Will continue to monitor. MEET MATIAS RN 05/02/2017 17:43 * Plan of Care - Don Alvarado RN [...] of heart rate of 26. Will continue to monitor. Response: Pt is asymptomatic and cordially waiting, resting, and sleeping. DON ALVARADO RN 05/02/2017 5:12 * Plan of Care - Charisse Corea RN [...] insertion tomorrow Charisse Corea RN 05/01/2017 16:03 * Plan of Care - Fransico Chew RN - 05/01/2017 0308 EST Problem: Daily Care Plan Goals Goal: Care Plan Documentation Outcome: Ongoing 05/01/17 0120 Care Plan Focus Area of Focus Circulatory Status Goal This Shift VSS, monitor tele D: Patient arrived to [place] [address] at 1900. Vital signs noted, BP 180s/80s. [...] > 160. Administered 2g magnesium IV. Monitored tele closely. R: After 1 hour BP 120s/60s. Nitro gtt off. Pt remains A&Ox3, denies SOB, lightheadedness, dizziness, or pain. NPO for PPM today. documented in this encounter Plan of Treatment Pending Results Name Type Priority Associated Diagnoses Date /Time OUTSIDE IMAGES - OTHER CHEST Imaging 04/30/2017 16:47 EST Scheduled Referrals Name Type Priority Associated Diagnoses Order Schedule PROVIDER FOLLOW-UP INSTRUCTIONS Outpatient Referral Routine Ordered: 05/02/2017 PROVIDER FOLLOW-UP INSTRUCTIONS Outpatient Referral Routine Ordered: 05/02/2017 PROVIDER FOLLOW-UP INSTRUCTIONS Outpatient Referral Routine Ordered: 05/02/2017 PROVIDER FOLLOW-UP INSTRUCTIONS Outpatient Referral Routine Ordered: 05/02/2017 documented as of this encounter Procedures Procedure Name Priority Date/Time Associated Diagnosis Comments ECG REPORT - SCANNED 05/09/2017 13:51 EST ECG REPORT - SCANNED 05/08/2017 8:27 EST IMPLANT RECORD - SCANNED 05/08/2017 8:14 EST ECG REPORT - SCANNED 05/08/2017 8:14 EST ECG REPORT - SCANNED 05/08/2017 8:14 EST IMPLANT RECORD - SCANNED 05/08/2017 8:14 EST GLUCOSE, GLUCOMETER Routine 05/04/2017 7 :41 EST COMPLETE BLOOD COUNT Routine 05/03/2017 5:42 EST BUN Routine 05/03/2017 5:42 EST CREATININE Routine 05/03/2017 5:42 EST ELECTROLYTES Routine 05/03/2017 5:42 EST EKG 12-LEAD STAT 05/03/2017 4:23 EST ECG REPORT - SCANNED 05/02/2017 11:16 EST PORTABLE CHEST 1 VIEW Routine 05/02/2017 10:27 EST EKG 12-LEAD Routine 05/02/2017 10:10 EST PERMANENT PACEMAKER PROCEDURE Routine 05/02/2017 10:00 EST COMPLETE BLOOD COUNT Routine 05/02/2017 6:11 EST BUN Routine 05/02/2017 6:11 EST CREATININE Routine 05/02/2017 6:11 EST ELECTROLYTES Routine 05/02/2017 6:11 EST TROPONIN I Routine 05/01/2017 7:52 EST COMPLETE BLOOD COUNT Routine 05/01/2017 6:01 EST BUN Routine 05/01/2017 6:01 EST MAGNESIUM Routine 05/01/2017 6:01 EST CREATININE Routine 05/01/2017 6:01 EST LIPID PROFILE (INCLUDES CHOLESTEROL, TRIGLYCERIDES, HDL, LDL) Routine 05/01/2017 6:01 EST ELECTROLYTES Routine 05/01/2017 6:01 EST TROPONIN I Routine 05/01/2017 0:20 EST HEMOGLOBIN A1C Routine 05/01/2017 0:20 EST PROTIME Routine 04/30/2017 19:33 EST ED/URGENT CARE ADD-ON Routine 04/30/2017 18:20 EST OUTSIDE IMAGES ? ECHO IMAGES 04/30/2017 17:24 EST EKG 12-LEAD STAT 04/30/2017 16:43 EST PROFILE ED CARDIAC PACK STAT 04/30/2017 16:40 EST LYME AB Routine 04/30/2017 16:40 EST TSH Routine 04/30/2017 16:40 EST documented in this encounter Results * ECG REPORT - SCANNED (05/09/2017 13:51 EST) 05/09/2017 13:5 1 EST Scan 2 Rocket Assembly Operator PROCEDURE/MINOR VELMA GICAL ORDERABLES * ECG REPORT - SCANNED (05/08/2017 8:27 EST) 05/08/2017 8:27 EST Scan 2 Rocket Assembly Operator PROCEDURE/MINOR VELMA GICAL ORDERABLES * IMPLANT RECORD - SCANNED (05/08/2017 8:14 EST) 05/08/2017 8:14 EST Scan 2 Rocket Assembly Operator PROCEDURE/MINOR VELMA GICAL ORDERABLES * ECG REPORT - SCANNED (05/08/2017 8:14 EST) 05/08/2017 8:14 EST Scan 2 Rocket Assembly Operator PROCEDURE/MINOR VELMA GICAL ORDERABLES * ECG REPORT - SCANNED (05/08/2017 8:14 EST) 05/08/2017 8:14 EST Scan 2 Rocket Assembly Operator PROCEDURE/MINOR VELMA GICAL ORDERABLES * IMPLANT RECORD - SCANNED (05/08/2017 8:14 EST) 05/08/2017 8:14 EST Scan 2 Rocket Assembly Operator PROCEDURE/MINOR VELMA GICAL ORDERABLES * (ABNORMAL) GLUCOSE, GLUCOMETER (05/04/2017 7:41 EST) Glucose, Fingerstick 104(H) 70 - 100 mg/dl 05/04/2017 7:42 EST [facility] Aluminum Can Collector ID [id number] 05/04/2017 7:42 EST [facility] Comment:Test Performed by Nu rsing Services BLOOD SPECIMEN / Unknown 05/04/2017 7:41 EST 05/04/2017 7:42 EST Houston Corey MD CHEMISTRY & BLOO D GAS ORDERABLES Performing Organization Address City/[facility]/ZIP Co de Phone Number [facility] [address] [place] [address] * CREATININE (05/03/2017 5:42 EST) Creatinine 0.67 0.66 - 1.25 mg/dl 05/03/2017 6:56 EST [facility] GFR, Calculated 100 >60 ml/min/1.7 3m2 05/03/2017 6:56 EST [facility] Comment: eGFR calculated using CKD-EPI equation for non Americans. Multiply eGFR by 1.16 for Americans. Blood specimen (specimen) BLOOD SPECIMEN / Unknown 05/03/2017 5:42 EST 05/03/2017 6:20 EST Houston Corey MD CHEMISTRY & BLOO D GAS ORDERABLES Performing Organization Address [facility]/ZIP Co de Phone Number [facility] [address] [place] [address] * (ABNORMAL) BUN (05/03/2017 5:42 EST) BUN 8(L) 10 - 26 mg/dl 05/03/2017 6:56 EST [facility] Blood specimen (specimen) BLOOD SPECIMEN / Unknown 05/03/2017 5:42 EST 05/03/2017 6:20 EST Houston Corey MD CHEMISTRY & BLOO D GAS ORDERABLES Performing Organization Address [facility] Co de Phone Number [facility] [address] [place] [address] * (ABNORMAL) ELECTROLYTES (05/03/2017 5:42 EST) Sodium 134(L) 136 - 145 mEq/L 05/03/2017 6:56 EST [facility] Potassium 4.2 3.5 - 5.0 mEq/L 05/03/2017 6:56 [facility] Chloride 99 96 - 110 mEq/L 05/03/2017 6:56 [facility] CO2 26 22 - 32 mEq/L 05/03/2017 6:56 [facility] Blood specimen (specimen) BLOOD SPECIMEN / Unknown 05/03/2017 5:42 EST 05/03/2017 6:20 EST Houston Corey MD CHEMISTRY & BLOO D GAS ORDERABLES [facility] [address] [place] [address] * (ABNORMAL) HEMAGRAM (05/03/2017 5:42 EST) WBC 7.95 4.0 - 10.4 K/cmm 05/03/2017 6:46 [facility] RBC 3.97(L) 4.36 - 5.78 M/cmm 05/03/2017 6:46 [facility] Hemoglobin 13.3(L) 13.8 - 17.3 gm/dl 05/03/2017 6:46 [facility] HCT 38.4(L) 39.5 - 50.2 % 05/03/2017 6:46 [facility] MCV 97(H) 81 - 95 fl 05/03/2017 6:46 [facility] MCH 33.5(H) 27.6 - 33.0 pg 05/03/2017 6:46 [facility] MCHC 34.6 32.8 - 36.4 gm/dl 05/03/2017 6:46 [facility] RDW-CV 11.9 <14.2 % 05/03/2017 6:46 [facility] RDW-SD 42.4 <46.0 fl 05/03/2017 6:46 [facility] PLT 196 141 - 377 K/cmm 05/03/2017 6:46 [facility] MPV 12.6 9.5 - 12.7 fl 05/03/2017 6:46 [facility] Blood specimen (specimen) BLOOD SPECIMEN / Unknown 05/03/2017 5:42 EST 05/03/2017 6:20 EST Houston Corey MD HEMATOLOGY & PF4 ORDERABLES [facility] [address] [place] [address] * EKG 12-LEAD (05/03/2017 4:23 EST) 05/03/2017 4:23 EST Narrative [facility] - 05/09/2017 13:47 EST ? [facility] ? Test Date: ?2017-05-03 Pat Name: ? DAVID FARFAN ?Department: ?? [facility] ? Room: ? MW514 Gender: ? 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 [id number] : ?1950 ? Requested By: MARIO ALBERTO SCANLON Order Number: [id number] ? Martha OAKES: ?? SENG PERSON SA, MD ? Measurements Intervals ?[place] ? Rate: ? 75 ? P: ?51 CA: ? 172 ?QRS: ?-77 QRSD: ? 172 ?T: ?92 QT: ? 469 ? QTc: ?525 ? Interpretive Statements ELECTRONIC VENTRICULAR PACEMAKER ABNORMAL RHYTHM ECG Automated Interpretation. ??Provider Interpretation to follow. Compared to ECG 05/02/2017 10:10:30 No significant changes I reviewed the tracing and have either agreed or edited the findings in this report. Electronically Signed On 05-09-17 13:47:58 EST by SENG PERSON SA, MD. Procedure Note Seng Brody Sa, MD - 05/09/2017 [facility] Test Date: 2017-05-03 Pat Name: DAVID FARFAN Department: [facility] Room: [facility] Gender: M Mechanical Detailer: [id number] : 1950 Requested By: MARIO ALBERTO SCANLON Order Number: [id number] Reading MD: SENG ROBLEDO Measurements Intervals [place] Rate: 75 P: 51 CA: 172 QRS: -77 QRSD: 172 T: 92 QT: 469 QTc: 525 Interpretive Statements ELECTRONIC VENTRICULAR PACEMAKER ABNORMAL RHYTHM ECG Automated Interpretation. Provider Interpretation to follow. Compared to ECG 05/02/2017 10:10:30 No significant changes I reviewed the tracing and have either agreed or edited the findings inthis report. Electronically Signed On 05-09-17 13:47:58 EST by SENG WRIGHT MD. Joesph Louie MD CARDIAC ECG ORDERABL ES [facility] * ECG REPORT - SCANNED (05/02/2017 11:16 EST) 05/02/2017 11:1 6 EST Scan 2 Rocket Assembly Operator PROCEDURE/MINOR VELMA GICAL ORDERABLES * PORTABLE CHEST 1 VIEW (05/02/2017 10:27 EST) Anatomical Region Laterality Modality Other 05/02/2017 10:2 7 EST 05/02/2017 10:51 EST Narrative 05/02/2017 10:51 EST PORTABLE CHEST 1 VIEW ??05/02/2017 10:27 AM Clinical History/Comments: heart block; s/p PPM Comparison: 04/30/2017 Findings: Semiupright AP view was obtained. Dual-chamber pacemaker has been placed through the left subclavian vein. Leads overlie the right atrium and right ventricle. There is no evidence of pneumothorax, but one cannot be excluded on this non-upright radiograph. Pulmonary edema has significant improved and the cardiac silhouette is smaller than previously. Extensive pleural calcification is present on the right. Procedure Note Umang Dugan MD - 05/02/2017 PORTABLE CHEST 1 VIEW 05/02/2017 10:27 AM Clinical History/Comments: heart block; s/p PPM Comparison: 04/30/2017 Findings: Semiupright AP view was obtained. Dual-chamber pacemaker has been placed through the left subclavian vein. Leads overlie the right atrium and right ventricle. There is no evidence of pneumothorax, but one cannot be excluded on this non-upright radiograph. Pulmonary edema has significant improved and the cardiac silhouette is smaller than previously. Extensive pleural calcification is present on the right. Tony Rosenberg MD IMG DIAGNOSTI C IMAGING ORDERABLES * EKG 12-LEAD (05/02/2017 10:10 EST) 05/02/2017 10:1 0 EST Narrative [facility] - 05/08/2017 8:22 EST ? [facility] ? Test Date: ?2017-05-02 Pat Name: ? DAVID FARFAN ?Department: ?? [facility] ? Room: ? MW514 Gender: ? 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 [id number] : ?1950 ? Requested By: SHAKIRA Martinez Order Number: [id number] ? Martha OAKES: ?? LALY BARBER MD ? Measurements Intervals ?[place] ? Rate: ? 63 ? P: ?40 CA: ? 170 ?QRS: ?-72 QRSD: ? 180 ?T: ?86 QT: ? 492 ? QTc: ?504 ? Interpretive Statements DUAL CHAMBER PACER ELECTRONIC VENTRICULAR PACEMAKER I reviewed the tracing and have either agreed or edited the findings in this report. Electronically Signed On 05-08-17 08:22:30 EST by LALY BARBER MD. Procedure Note Laly Barber MD - 05/08/2017 [facility] Test Date: 2017-05-02 Pat Name: DAVID FARFAN Department: [place] [address] Room: [facility] Gender: M Mechanical Detailer: [id number] : 1950 Requested By: SHAKIRA Martinez Order Number: [id number] Martha MD: LALY BARBER MD Measurements Intervals [place] Rate: 63 P: 40 CA: 170 QRS: -72 QRSD: 180 T: 86 QT: 492 QTc: 504 Interpretive Statements DUAL CHAMBER PACER ELECTRONIC VENTRICULAR PACEMAKER I reviewed the tracing and have either agreed or edited the findings inthis report. Electronically Signed On 05-08-17 08:22:30 EST by LALY YAO. Tony Rosenberg MD CARDIAC ECG O RDERABLES [facility] * PERMANENT PACEMAKER PROCEDURE (05/02/2017 10:00 EST) Anatomical Region Laterality Modality Other 05/02/2017 10:0 0 EST Narrative 05/02/2017 11:24 EST *Cardiology* [address] [place] [address] Device Implantation Patient: David Farfan ? Study Date: ?05/02/2017 ? Accession #: ? [id number] : ? 1950 Referring: Attending: Tony Rosenberg MD Fellow: Assisting: Ashley Delarosa RN Copies: ?Margarito Torres MD ATTESTATION: Dr. Tony Rosenberg was present and supervising for the entire procedure, I, Dr. Tony Rosenberg have reviewed and agree with the findings of this report. SUMMARY OF PROCEDURE: - There were no complications. - Successful Dual chamber pacemaker implant. PROCEDURE INDICATION: INDICATION FOR PACING: Documented non-reversible symptomatic bradycardia due to third degree atrioventricular block. HISTORY AND INDICATIONS: ??Mr. Farfan presents with complete heart block. PROCEDURE: - Implant [...] to the left deltopectoral groove. ??Left axillary vein access. With the patient in Trendelenburg position and under fluoroscopic guidance the vessel was entered on 2 occasion(s) allowing for placement of 2 soft-tipped J-wire(s) to the level of the inferior vena cava. The attending physician was present for the entire procedure. An incision was made medial and perpendicular to the left deltopectoral groovesubcutaneous. Using blunt dissection and electrocautery to achieve hemostasis, a device pocket was constructed. Lead implantation. The wire was tunneled into the incision area. Using a 7Fr safety sheath, a lead was advanced to the right ventricle under fluoroscopic guidance and actively fixed to the right ventricular septum. Using a 7Fr safety sheath, a lead was then advanced to right atrium under fluoroscopic guidance and actively fixed to the right atrial appendage. The lead(s) were tested before and after suturing the lead sleeve(s) to the pre-pectoralis fascia. Device [...] HARDWARE: Implanted device: Clifford Appiah Serial number: [id number]. LEAD PARAMETERS + + + + Lead # ? 1 ? 2 ? + + + + Chamber ? RA ? RV ? + + + + Date implanted ?? 05/02/2017 ? 05/02/2017 ? + + + + Model information [employer] ? [employer] Ingevity ? ingevity mr ? MRI ? + + + + Serial number ? [id number] ? [id number] ? + + + + Location ? RA appendage ? Mid RV septum ? + + + + Capture ? 0.6V@ 0.4ms ? 0.5V@ 0.4ms ? + + + + Impedance ? 684Ohms ? 894Ohms ? + + + + Sensing ? 3.4mV ? 16.2mV ? + + + + Status ? Active ? Active ? + + + + PACING SETTINGS + +------+ Mode ? DDDR ?? + +------+ Lower rate ? 60bpm + +------+ Upper rate ? 120bpm + +------+ Mode switch ? On ? + +------+ Mode switch rate 180bpm + +------+ Paced AV delay ?? 200ms + +------+ Sensed AV delay 180ms + +------+ CHAMBER SETTINGS + + + + ? RA ? RV ? + + + + Pacing polarity Uni/bipolar Uni/bipolar + + + + Amplitude ? 2.5V ? 2.5V ? + + + + Pulse width ? 0.4ms ? 0.4ms ? + + + + Sensing polarity Bipolar ? Bipolar ? + + + + Sensitivity ? 0.5mV ? 2mV ? + + + + STUDY COMPLETION Administered medications: ?? Cefazolin (Ancef, Kefzol) , prior to the procedure for infection prophylaxis. - Fluoroscopy time: 1.3min. - Omnipaque Contrast: 10ml. - Patient in-room time: 08:00 AM. - Patient out-of-room time: 09:28 AM. - Intake: 200ml - Estimated blood loss: 30ml. PLAN: ??See post procedure orders. Bed rest for 3hours. At the completion of the procedure, findings, [...] prior to this procedure. Electronically signed by Tony Rosenberg MD 05/02/2017 11:23 Procedure Note Tony Rosenberg MD - 05/02/2017 *Cardiology* [address] [place] [address] Device Implantation Patient: David Farfan Study Date: 05/02/2017 : 1950 Referring: Attending: Tony Rosenberg MD Fellow: Assisting: Ashley Delarosa RN Copies: Margarito Torres MD ATTESTATION: Dr. Tony Rosenberg was present and supervising for the entire procedure, I, Dr. Tony Rosenberg have reviewed and agree with the findings of this report. SUMMARY OF PROCEDURE: - There were no complications. - Successful Dual chamber pacemaker implant. PROCEDURE INDICATION: INDICATION FOR PACING: Documented non-reversible symptomatic bradycardia due to third degree atrioventricular block. HISTORY AND INDICATIONS: Mr. Farfan presents with complete heart block. PROCEDURE: - Implant [...] the patient in Trendelenburg position and under fluoroscopic guidance the vessel was entered on 2 occasion(s) allowing for placement of 2 soft-tipped J-wire(s) to the level of the inferior vena cava. The attending physician was present for the entire procedure. An incision was made medial and perpendicular to the left deltopectoral groovesubcutaneous. Using blunt dissection and electrocautery to achieve hemostasis, a device pocket was constructed. Lead implantation. The wire was tunneled into the incision area. Using a 7Fr safety sheath, a lead was advanced to the right ventricle under fluoroscopic guidance and actively fixed to the right ventricular septum. Using a 7Fr safety sheath, a lead was then advanced to right atrium under fluoroscopic guidance and actively fixed to the right atrial appendage. The lead(s) were tested before and after suturing the lead sleeve(s) to the pre-pectoralis fascia. Device [...] device: Clifford ESTEVEZ DR - Serial number: [id number]. LEAD PARAMETERS + + + + Lead # 1 2 + + + + Chamber RA RV + + + + Date implanted 05/02/2017 05/02/2017 + + + + Model information [employer] hood mr MRI + + + + Serial number [id number] + + + + Location RA appendage Mid RV septum + + + + Capture 0.6V@ 0.4ms 0.5V@ 0.4ms + + + + Impedance 684Ohms 894Ohms + + + + Sensing 3.4mV 16.2mV + + + + Status Active Active + + + + PACING SETTINGS + +------+ Mode DDDR + +------+ Lower rate 60bpm + +------+ Upper rate 120bpm + +------+ Mode switch On + +------+ Mode switch rate 180bpm + +------+ Paced AV delay 200ms + +------+ Sensed AV delay 180ms + +------+ CHAMBER SETTINGS + + + + RA RV + + + + Pacing polarity Uni/bipolar Uni/bipolar + + + + Amplitude 2.5V 2.5V + + + + Pulse width 0.4ms 0.4ms + + + + Sensing polarity Bipolar Bipolar + + + + Sensitivity 0.5mV 2mV + + + + STUDY COMPLETION Administered medications: Cefazolin (Ancef, Kefzol) , prior to the procedure for infection prophylaxis. - Fluoroscopy time: 1.3min. - Omnipaque Contrast: 10ml. - Patient in-room time: 08:00 AM. - Patient out-of-room time: 09:28 AM. - Intake: 200ml - Estimated blood loss: 30ml. PLAN: See post procedure orders. Bed rest for 3hours. At the completion of the procedure, findings, [...] prior to this procedure. Electronically signed by Tony Rosenberg MD 05/02/2017 11:23 Houston Corey MD CARDIAC EP ORDER [place] * CREATININE (05/02/2017 6:11 EST) Creatinine 0.68 0.66 - 1.25 mg/dl 05/02/2017 7:26 [facility] GFR, Calculated 100 >60 ml/min/1.7 3m2 05/02/2017 7:26 [facility] Comment: eGFR calculated using CKD-EPI equation for non Americans. Multiply eGFR by 1.16 for Americans. Blood specimen (specimen) BLOOD SPECIMEN / Unknown 05/02/2017 6:11 EST 05/02/2017 6:47 EST Houston Corey MD CHEMISTRY & BLOO D GAS ORDERABLES [facility] [address] [place] [address] * BUN (05/02/2017 6:11 EST) BUN 10 10 - 26 mg/dl 05/02/2017 7:26 [facility] Blood specimen (specimen) BLOOD SPECIMEN / Unknown 05/02/2017 6:11 EST 05/02/2017 6:47 EST Houston Corey MD CHEMISTRY & BLOO D GAS ORDERABLES Performing Organization Address [facility] Co de Phone Number [facility] [address] [place] [address] * (ABNORMAL) ELECTROLYTES (05/02/2017 6:11 EST) Sodium 135(L) 136 - 145 mEq/L 05/02/2017 7:26 [facility] Potassium 4.4 3.5 - 5.0 mEq/L 05/02/2017 7:26 [facility] Chloride 102 96 - 110 mEq/L 05/02/2017 7:26 [facility] CO2 23 22 - 32 mEq/L 05/02/2017 7:26 [facility] Blood specimen (specimen) BLOOD SPECIMEN / Unknown 05/02/2017 6:11 EST 05/02/2017 6:47 EST Houston Corey MD CHEMISTRY & BLOO D GAS ORDERABLES Performing Organization Address [facility]/ZIP Co de Phone Number [facility] [address] [place] [address] * (ABNORMAL) HEMAGRAM (05/02/2017 6:11 EST) WBC 6.92 4.0 - 10.4 K/cmm 05/02/2017 6:59 [facility] RBC 3.67(L) 4.36 - 5.78 M/cmm 05/02/2017 6:59 [facility] Hemoglobin 12.3(L) 13.8 - 17.3 gm/dl 05/02/2017 6:59 [facility] HCT 35.2(L) 39.5 - 50.2 % 05/02/2017 6:59 [facility] MCV 96(H) 81 - 95 fl 05/02/2017 6:59 [facility] SERVICES MCH 33.5(H) 27.6 - 33.0 pg 05/02/2017 6:59 EST [facility] MCHC 34.9 32.8 - 36.4 gm/dl 05/02/2017 6:59 EST [facility] RDW-CV 11.9 <14.2 % 05/02/2017 6:59 [facility] RDW-SD 41.1 <46.0 fl 05/02/2017 6:59 EST [facility] PLT 185 141 - 377 K/cmm 05/02/2017 6:59 [facility] MPV 12.9(H) 9.5 - 12.7 fl 05/02/2017 6:59 EST [facility] Blood specimen (specimen) BLOOD SPECIMEN / Unknown 05/02/2017 6:11 EST 05/02/2017 6:47 EST Houston Corey MD HEMATOLOGY & PF4 ORDERABLES Performing Organization Address City/[facility] Co de Phone Number [facility] [address] [place] [address] * (ABNORMAL) TROPONIN I (05/01/2017 7:52 EST) Troponin I (ng/mL) 0.035(H) <0.034 ng/ml 05/01/2017 9:10 EST [facility] Blood specimen (specimen) BLOOD SPECIMEN / Unknown 05/01/2017 7:52 EST 05/01/2017 8:19 EST Amelia Partida DO CHEMISTRY & BLOOD GAS ORDERABLES Performing Organization Address City/[facility]/ZIP Co de Phone Number [facility] [address] [place] [address] * MAGNESIUM (05/01/2017 6:01 EST) Magnesium 2.1 1.7 - 2.8 mg/dl 05/01/2017 6:46 EST [facility] Blood specimen (specimen) BLOOD SPECIMEN / Unknown 05/01/2017 6:01 EST 05/01/2017 6:15 EST Amelia Partida DO CHEMISTRY & BLOOD GAS ORDERABLES Performing Organization Address [facility] Co de Phone Number [facility] [address] [place] [address] * CREATININE (05/01/2017 6:01 EST) Creatinine 0.67 0.66 - 1.25 mg/dl 05/01/2017 6:46 [facility] GFR, Calculated 100 >60 ml/min/1.7 3m2 05/01/2017 6:46 [facility] Comment: eGFR calculated using CKD-EPI equation for non Americans. Multiply eGFR by 1.16 for Americans. Blood specimen (specimen) BLOOD SPECIMEN / Unknown 05/01/2017 6:01 EST 05/01/2017 6:15 EST Houston Corey MD CHEMISTRY & BLOO D GAS ORDERABLES Performing Organization Address [facility] Co de Phone Number [facility] [address] [place] [address] * (ABNORMAL) BUN (05/01/2017 6:01 EST) BUN 6(L) 10 - 26 mg/dl 05/01/2017 6:46 [facility] Blood specimen (specimen) BLOOD SPECIMEN / Unknown 05/01/2017 6:01 EST 05/01/2017 6:15 EST Houston Corey MD CHEMISTRY & BLOO D GAS ORDERABLES Performing Organization Address [facility] Co de Phone Number [facility] [address] [place] [address] * (ABNORMAL) ELECTROLYTES (05/01/2017 6:01 EST) Sodium 134(L) 136 - 145 mEq/L 05/01/2017 6:46 [facility] Potassium 4.5 3.5 - 5.0 mEq/L 05/01/2017 6:46 [facility] Chloride 101 96 - 110 mEq/L 05/01/2017 6:46 [facility] CO2 23 22 - 32 mEq/L 05/01/2017 6:46 [facility] Blood specimen (specimen) BLOOD SPECIMEN / Unknown 05/01/2017 6:01 EST 05/01/2017 6:15 EST Houston Corey MD CHEMISTRY & BLOO D GAS ORDERABLES [facility] [address] [place] [address] * (ABNORMAL) HEMAGRAM (05/01/2017 6:01 EST) WBC 7.09 4.0 - 10.4 K/cmm 05/01/2017 6:27 [facility] RBC 3.76(L) 4.36 - 5.78 M/cmm 05/01/2017 6:27 [facility] Hemoglobin 12.7(L) 13.8 - 17.3 gm/dl 05/01/2017 6:27 [facility] HCT 36.4(L) 39.5 - 50.2 % 05/01/2017 6:27 [facility] MCV 97(H) 81 - 95 fl 05/01/2017 6:27 [facility] MCH 33.8(H) 27.6 - 33.0 pg 05/01/2017 6:27 [facility] MCHC 34.9 32.8 - 36.4 gm/dl 05/01/2017 6:27 [facility] RDW-CV 11.9 <14.2 % 05/01/2017 6:27 [facility] RDW-SD 42.1 <46.0 fl 05/01/2017 6:27 [facility] PLT 205 141 - 377 K/cmm 05/01/2017 6:27 [facility] MPV 12.8(H) 9.5 - 12.7 fl 05/01/2017 6:27 [facility] Blood specimen (specimen) BLOOD SPECIMEN / Unknown 05/01/2017 6:01 EST 05/01/2017 6:15 EST Houston Corey MD HEMATOLOGY & PF4 ORDERABLES Performing Organization Address [facility] Co de Phone Number [facility] [address] [place] [address] * LIPID PROFILE (INCLUDES CHOLESTEROL, TRIGLYCERIDES, HDL, LDL) (05/01/2017 6:01 EST) Cholesterol 148 mg/dl 05/01/2017 6:46 [facility] Comment: Desirable:<200 Borderline High:200-239 High:>rl=234 Triglycerides 65 mg/dl 05/01/2017 6:46 [facility] Comment: Normal:<150 Borderline High:150-199 High:200-499 Very High:>zv=853 HDL 39 mg/dl 05/01/2017 6:46 [facility] Comment: Low:<40 Normal:40-60 Desirable: >60 LDL, Calculated 96 mg/dl 8 6:46 [facility] Comment: Optimal:<100 Near Optimal:100-129 Borderline High:130-159 High:160-189 Very High:>pp=994 Chol/HDL Ratio 3.8 05/01/2017 6:46 [facility] Fasting? Unknown 05/01/2017 6:46 [facility] Non HDL Cholesterol 109 mg/dl 05/01/2017 6:46 [facility] Comment: Desirable:<130 Borderline:130-159 High: 160-189 Very High: >ty=301 Blood specimen (specimen) BLOOD SPECIMEN / Unknown 05/01/2017 6:01 EST 05/01/2017 6:15 EST Houston Corey MD CHEMISTRY & BLOO D GAS ORDERABLES Performing Organization Address City/[facility]/ZIP Co de Phone Number [facility] [address] [place] [address] * (ABNORMAL) TROPONIN I (05/01/2017 0:20 EST) Troponin I (ng/mL) 0.055(H) <0.034 ng/ml 05/01/2017 1:01 [facility] Blood specimen (specimen) BLOOD SPECIMEN / Unknown 05/01/2017 0:20 EST 05/01/2017 0:24 EST Amelia Partida DO CHEMISTRY & BLOOD GAS ORDERABLES Performing Organization Address [facility] Co de Phone Number [facility] [address] [place] [address] * HEMOGLOBIN A1C (05/01/2017 0:20 EST) Hemoglobin A1C 5.7 % 05/01/2017 10:05 [facility] Comment: Reference Range: <5.7% Normal 5.7-6.4% Prediabetes =>6.5% Diagnostic for diabetes (if confirmed) Goals for glycemic control in diabetes ADA 2017 For non adults with diabetes: ?? Target <7.5% For children and adolescents with type 1 diabetes: ?? Target <7.0% More or less stringent targets may be appropriate for individual patients. Est Avg Glucose 117 mg/dl 8 10:05 [facility] Comment: eAG represents the A1c result expressed as average glucose in mg/dl. Blood specimen (specimen) BLOOD SPECIMEN / Unknown 05/01/2017 0:20 EST 05/01/2017 0:24 EST Houston Corey MD CHEMISTRY & BLOO D GAS ORDERABLES Performing Organization Address [facility] Co de Phone Number [facility] [address] [place] [address] * (ABNORMAL) PROTIME (04/30/2017 19:33 EST) Pro Time 15.1(H) 10.3 - 13.4 secs 04/30/2017 20:08 [facility] Comment:NOTE NEW REFERENCE Vern FUNG OF APR 03 2017 I.N.R. 1.3(H) 0.9 - 1.1 Ratio 04/30/2017 20:08 [facility] Comment: Moderate Intensity Coumadin INR = 2.0-3.0 Adjustments in anticoagulant therapy dose should be based upon the INR and NOT the Pro Time. Blood specimen (specimen) BLOOD SPECIMEN / Unknown 04/30/2017 19:33 EST 04/30/2017 19:47 EST Houston Corey MD HEMATOLOGY & PF4 ORDERABLES Performing Organization Address City/[facility]/ZIP Co de Phone Number [facility] [address] [place] [address] * ED/URGENT CARE ADD-ON (04/30/2017 18:20 EST) Tests to be added LYME AB, 04/30/2017 18:16 EST [facility] Comment:TSH Number for problems [id number] (ED) 04/30/2017 18:16 EST [facility] TOPOGRAPHY UNKNOWN / Unknown 04/30/2017 18:20 EST 04/30/2017 18:23 EST Amelia Partida DO HEMATOLOGY & PF4 ORDERABLES Performing Organization Address City/[facility] Co de Phone Number [facility] [address] [place] [address] * OUTSIDE IMAGES ??? ECHO IMAGES (04/30/2017 17:24 EST) Anatomical Region Laterality Modality Other 04/30/2017 17:2 4 EST Narrative 04/30/2017 17:24 EST This is an outside study - there is no report. 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 Provider Unknown IMG OTHER IMAGING OR DERABLES * EKG 12-LEAD (04/30/2017 16:43 EST) 04/30/2017 16:4 3 EST Narrative [facility] E[facility] - 05/02/2017 11:12 EST ?[facility] Emergency ? Test Date: ?2017-04-30 Pat Name: ? DAVID FARFAN ?Department: ?? ED ? Room: ? AC12 Gender: ? 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 [id number] : ?1950 ? Requested By: DONNA HOOK L Order Number: [id number] ? Reading MD: ?? ANA LOBEL MD ? Measurements Intervals ?[place] ? Rate: ? 33 ? P: ? CA: ? 0 ?QRS: ?15 QRSD: ? 110 ?T: ?42 QT: ? 524 ? QTc: ?394 ? Interpretive Statements SINUS RHYTHM WITH 3rd degree AV block and junctional escape rhythm NONSPECIFIC ST & T-WAVE ABNORMALITY No previous ECG available for comparison I have reviewed the tracing and have either agreed or edited the findings in this report. ??Edited by BHARATHI GRANADOS MD on 05-01-17 19:59:31 EST. I reviewed the tracing and have either agreed or edited the findings in this report. Electronically Signed On 05-02-17 11:12:25 EST by ANA MARSH MD. Procedure Note Ana Marsh MD - 05/02/2017 [facility] Emergency Test Date: 2017-04-30 Pat Name: DAVID FARFAN Department: ED Room: [facility] Gender: M Mechanical Detailer: [id number] : 1950 Requested By: DONNA Cabral Order Number: [id number] Reading MD: ANA MARSH MD Measurements Intervals [place] Rate: 33 P: CA: 0 QRS: 15 QRSD: 110 T: 42 QT: 524 QTc: 394 Interpretive Statements SINUS RHYTHM WITH 3rd degree AV block and junctional escape rhythm NONSPECIFIC ST & T-WAVE ABNORMALITY No previous ECG available for comparison I have reviewed the tracing and have either agreed or edited the findingsin this report. Edited by BHARATHI GRANADOS MD on 05-01-17 19:59:31 EST. I reviewed the tracing and have either agreed or edited the findings inthis report. Electronically Signed On 05-02-17 11:12:25 EST by ANA MARTINEZ. Bridget Fields MD CARDIAC ECG ORDERAB LES [facility]KG * TSH (04/30/2017 16:40 EST) TSH 1.34 0.47 - 4.68 uIU/ml 04/30/2017 19:24 [facility] BLOOD SPECIMEN / Unknown 04/30/2017 16:40 EST 04/30/2017 16:52 EST Bridget Fields MD CHEMISTRY & BLOOD G ORDERABLES [facility] [address] [place] [address] * LYME AB (04/30/2017 16:40 EST) [place] AB Negative 05/01/2017 11:39 [facility] Comment:Reference Range: Neg ative BLOOD SPECIMEN / Unknown 04/30/2017 16:40 EST 04/30/2017 16:52 EST Bridget Fields MD IMMUNOLOGY AND SERO LOGY ORDERABLES Performing Organization Address [facility] Co de Phone Number [facility] [address] [place] [address] * (ABNORMAL) PROFILE ED CARDIAC PACK (04/30/2017 16:40 EST) Sodium 134(L) 136 - 145 mEq/L 04/30/2017 17:16 [facility] Potassium 4.2 3.5 - 5.0 mEq/L 04/30/2017 17:16 [facility] Chloride 105 96 - 110 mEq/L 04/30/2017 17:16 [facility] CO2 20(L) 22 - 32 mEq/L 04/30/2017 17:16 [facility] BUN 6(L) 10 - 26 mg/dl 04/30/2017 17:16 [facility] Creatinine 0.61(L) 0.66 - 1.25 mg/dl 04/30/2017 17:16 [facility] GFR, Calculated 104 >60 ml/min/1 .73m2 04/30/2017 17:16 [facility] Comment: eGFR calculated using CKD-EPI equation for non Americans. Multiply eGFR by 1.16 for Americans. Magnesium 1.7 1.7 - 2.8 mg/dl 04/30/2017 17:16 [facility] WBC 7.78 4.0 - 10.4 K/cmm 04/30/2017 17:12 [facility] RBC 3.72(L) 4.36 - 5.78 M/cmm 04/30/2017 17:12 [facility] Hemoglobin 12.6(L) 13.8 - 17.3 gm/dl 04/30/2017 17:12 [facility] HCT 35.7(L) 39.5 - 50.2 % 04/30/2017 17:12 [facility] MCV 96(H) 81 - 95 fl 04/30/2017 17:12 [facility] MCH 33.9(H) 27.6 - 33.0 pg 04/30/2017 17:12 [facility] MCHC 35.3 32.8 - 36.4 gm/dl 04/30/2017 17:12 [facility] RDW-CV 11.9 <14.2 % 04/30/2017 17:12 [facility] RDW-SD 41.5 <46.0 fl 04/30/2017 17:12 [facility] PLT 197 141 - 377 K/cmm 04/30/2017 17:12 [facility] MPV 12.5 9.5 - 12.7 fl 04/30/2017 17:12 [facility] % Neutrophils 62.1 % 04/30/2017 17:12 [facility] % Lymphocytes 23.9 % 04/30/2017 17:12 [facility] % Monocytes 11.6 % 04/30/2017 17:12 [facility] % Eosinophils 1.2 % 04/30/2017 17:12 [facility] % Basophils 0.9 % 04/30/2017 17:12 [facility] % Immature Grans 0.3 % 04/30/2017 17:12 [facility] ABS Neutrophils 4.84 2.20 - 8.85 K/cmm 04/30/2017 17:12 [facility] ABS Lymphs 1.86 1.09 - 3.30 K/cmm 04/30/2017 17:12 [facility] ABS Monocytes 0.90(H) 0.1 - 0.8 K/cmm 04/30/2017 17:12 [facility] ABS Eosinophils 0.09 0.03 - 0.61 K/cm 04/30/2017 17:12 [facility] ABS Basophils 0.07 0.01 - 0.11 K/cm 04/30/2017 17:12 [facility] ABS Immature Grans 0.02 0 - 0.06 K/cm 04/30/2017 17:12 [facility] Type of Diff: Automated 04/30/2017 17:12 [facility] Troponin I (ng/mL) 0.040(H) <0.034 ng/ml 04/30/2017 17:29 [facility] Glucose, Screening 100 70 - 100 mg/dl 04/30/2017 17:16 [facility] Hold Blue Top Sample for coagulation will be discarded after 4 hours 04/30/2017 17:04 [facility] Blood specimen (specimen) BLOOD SPECIMEN / Unknown 04/30/2017 16:40 EST 04/30/2017 16:52 EST Bridget Fields MD PACKAGES & DNA PROB E ORDERABLES Performing Organization Address City/State/[facility] Co de Phone Number [facility] [address] [place] [address] documented in this encounter Visit Diagnoses Diagnosis 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, complete Heart block AV third degree (HCC-CMS) Atrioventricular block, complete Acute on chronic diastolic congestive heart failure (HCC-CMS) Acute on chronic diastolic heart failure Hypertensive urgency Unspecified essential hypertension Acute on chronic diastolic congestive heart failure (HCC-CMS) Acute on chronic diastolic heart failure documented in this encounter Administered Medications Inactive Administered Medications - up to 3 most recent administrations Medication Order MAR Action Action Date Dose Rate Site acetaminophen (TYLENOL) tablet 650 mg 650 mg, oral, EVERY 4 HOURS PRN, Starting on Fri04/30/17 at 1904, Until 05/04/17 at 2019, Pain, Routine Given 05/03/2017 8:29 EST 650 mg Given 05/02/2017 12:01 EST 650 mg amLODIPine (NORVASC) tablet 10 mg 10 mg, oral, DAILY, First dose (after last modification) on Fri05/02/17 at 0900, Until Discontinued, Routine Given 05/04/2017 8:48 EST 10 mg Given 05/03/2017 8:30 EST 10 mg Given 05/02/2017 10:12 EST 10 mg amLODIPine (NORVASC) tablet 5 mg 5 mg, oral, DAILY, First dose on Fri05/01/17 at 0900, Until Discontinued, Routine Given 05/01/2017 8:05 EST 5 mg ceFAZolin (ANCEF) 2 g in sodium chloride 0.9% 50 mL IVPB 2 g, intravenous, Administer over 30 Minutes, EVERY 8 HOURS, 3 doses, First dose on Fri05/02/17 at 1015, Last dose on Fri05/03/17 at 0000, STAT, Postprocedure Given 05/03/2017 0:17 EST 2 g Given 05/02/2017 15:33 EST 2 g Given by Other 05/02/2017 10:55 EST 2 g chlorthalidone (HYGROTON) tablet 25 mg 25 mg, oral, DAILY, First dose on Fri05/02/17 at 1645, Until Discontinued, Routine Given 05/04/2017 8:48 EST 25 mg Given 05/03/2017 8:30 EST 25 mg Given 05/02/2017 16:57 EST 25 mg fentaNYL citrate (PF) 50 mcg/mL injection intravenous, PRN, Starting on Fri05/02/17 at 0805, Until Fri05/02/17 at 0820, Routine Given 05/02/2017 8:20 EST 25 mcg Given 05/02/2017 8:05 EST 50 mcg fluticasone (FLONASE) nasal spray 100 mcg 100 mcg, nasal - both, DAILY, First dose on Fri05/04/17 at 1200, Until Discontinued, Routine Given 05/04/2017 13:29 EST 100 mcg furosemide (LASIX) injection 20 mg 20 mg, intravenous, NOW X1, 1 dose, On Fri04/30/17 at 1930, Routine Given 04/30/2017 20:34 EST 20 mg magnesium sulfate 2 g in water 50 mL 2 g, intravenous, Administer over 30 Minutes, NOW X1, 1 dose, On Fri04/30/17 at 2000, Routine Given 04/30/2017 20:34 EST 2 g midazolam (PF) (VERSED) 1 mg/mL injection intravenous, PRN, Starting on Fri05/02/17 at 0805, Until Fri05/02/17 at 0820, Routine Given 05/02/2017 8:20 EST 1 mg Given 05/02/2017 8:05 EST 2 mg nitroglycerin 400 mcg/ml in D5W 250 ml infusion 0.5-5 mcg/kg/min ? 99.8 kg (7.485-74.85 mL/hr, rounded to 7.5-74.9 mL/hr), intravenous, CONTINUOUS, Starting on Fri04/30/17 at 1930, Until Fri05/01/17 at 0731, Routine New Bag 04/30/2017 20:34 EST 0.5 mcg/kg/min 7.5 mL/hr sodium chloride 0.9 % (NS) infusion intravenous, FA IP EQF CONTINUOUS PRN FOR ONE STEP MEDS, Starting on Fri05/02/17 at 0800, Until Fri05/02/17 at 0800, Routine New Bag 05/02/2017 8:00 EST 50 mL/hr 50 mL/hr sodium chloride 0.9 % flush 3 mL 3 mL, intravenous, EVERY 8 HOURS, First dose on Fri05/01/17 at 0000, Until Discontinued, Routine Given 05/03/2017 23:10 EST 3 mL Given 05/03/2017 15:48 EST 3 mL Given 05/03/2017 9:29 EST 3 mL documented in this encounter Discontinued Medications Medication Sig Discontinue Reason Start Date End Da te ibuprofen (MOTRIN) 200 mg tablet Take 400 mg by mouth daily. Discontinued as Inpatient 05/01/2017 chlorthalidone (HYGROTON) 25 mg tablet Take 1 Tab by mouth daily. 05/05/2017 05/04/2017 amLODIPine (NORVASC) 10 mg tablet Take 1 Tab by mouth daily. 05/03/2017 05/04/2017 documented as of this encounter Historical Medications * This list may reflect changes made after this encounter. Medication Sig Dispensed Refills Start Date End Date ibuprofen (MOTRIN) 200 mg tablet Take 400 mg by mouth daily. 05/01/2017 added in this encounter Active and Recently Administered Medications Times are shown in EST. Scheduled Medication Order 05/02/2017 05/03/2017 05/04/2017 amLODIPine (NORVASC) tablet 10 mg 10 mg, oral, DAILY, First dose (after last modification) on Fri05/02/17 at 0900, Until Discontinued, Routine 1012 (Given - Provider: Meet Matias RN) 0830 (Given - Provider: Meet Matias RN) 0848 (Given - Provider: Katie Smith RN) ceFAZolin (ANCEF) 2 g in sodium chloride 0.9% 50 mL IVPB (COMPLETED) 2 g, intravenous, Administer over 30 Minutes, EVERY 8 HOURS, 3 doses, First dose on Fri05/02/17 at 1015, Last dose on Fri05/03/17 at 0000, STAT, Postprocedure 1055 (Given by Other - Provider: Meet Matias RN)1533 (Given - Provider: Meet Matias RN) 0017 (Given - Provider: Don Alvarado RN) chlorthalidone (HYGROTON) tablet 25 mg 25 mg, oral, DAILY, First dose on Fri05/02/17 at 1645, Until Discontinued, Routine 1657 (Given - Provider: Meet Matias RN) 0830 (Given - Provider: Meet Matias RN) 0848 (Given - Provider: Katie Smith RN) fluticasone (FLONASE) nasal spray 100 mcg 100 mcg, nasal - both, DAILY, First dose on Fri05/04/17 at 1200, Until Discontinued, Routine 1329 (Given - Provider: Katie Smith RN) sodium chloride 0.9 % flush 3 mL 3 mL, intravenous, EVERY 8 HOURS, First dose on [place] 05/01/17 at 0000, Until Discontinued, Routine 1014 (Given - Provider: Meet Matias RN)1533 (Given - Provider: Meet Matias RN) 0023 (Given - Provider: Don Alvarado RN)0929 (Given - Provider: Meet Matias RN)1548 (Given - Provider: Charisse Corea RN)2310 (Given - Provider: Doris Alex RN) 0900 (Canceled Entry - Provider: Katie Smith RN)1504 (Canceled Entry - Provider: Katie Smith RN) PRN Medication Order 05/02/2017 05/03/2017 05/04/2017 acetaminophen (TYLENOL) tablet 650 mg 650 mg, oral, EVERY 4 HOURS PRN, Starting on Fri04/30/17 at 1904, Until Fri05/04/17 at 2019, Pain, Routine 1201 (Given - Provider: Meet Matias, TISH) 0829 (Given - Provider: Meet Matias, TISH) bisacodyl (DULCOLAX) suppository 10 mg 10 mg, rectal, DAILY PRN, Starting on Fri04/30/17 at 1904, Until Fri05/04/17 at 2019, Constipation, Routine fentaNYL citrate (PF) 50 mcg/mL injection (COMPLETED) intravenous, PRN, Starting on Fri05/02/17 at 0805, Until Fri05/02/17 at 0820, Routine 0805 (Given - Provider: Sigrid Schwartz RN)0820 (Given - Provider: Sigrid Schwartz RN) midazolam (PF) (VERSED) 1 mg/mL injection (COMPLETED) intravenous, PRN, Starting on Fri05/02/17 at 0805, Until Fri05/02/17 at 0820, Routine 0805 (Given - Provider: Sigrid Schwartz RN)0820 (Given - Provider: Sigrid Schwartz RN) sodium chloride 0.9 % (NS) infusion (COMPLETED) intravenous, FA IP EQF CONTINUOUS PRN FOR ONE STEP MEDS, Starting on Fri05/02/17 at 0800, Until Fri05/02/17 at 0800, Routine 0800 (New Bag - Provider: Sigrid Schwartz RN) documented in this encounter Orders Medications Ordered That Tom ht Not Have Been Administered Count Last Ordered Date First Ordered Date atropine 0.1 mg/mL syringe 0.5-1 mg 1 05/02 amLODIPine (NORVASC) tablet 5 mg 1 05/02/19 18 atropine 0.1 mg/mL syringe 1 04/30/2017 bisacodyl (DULCOLAX) suppository 10 mg 1 chlorhexidine gluconate 2 % cloth 1 Each 1 04/30/2017 docusate sodium (COLACE) capsule 100 mg 1 0 04/30/2017 Diet Count Last Ordered Date First Orde red Date DISCHARGE DIET 4 05/01/2017 Nursing Count Last Ordered Date First Orde red Date ACTIVITY INSTRUCTIONS 2 05/02/20172017 BEDREST 1 05/02/2017 CONTRAINDICATION TO ANTICOAG ULATION THERAPY 1 05/02/2017 WOUND CARE INSTRUCTIONS 4 05/02/2017 03/0 03/2017 MEASURE WEIGHT 1 04/30/2017 TREATMENT/INTERVENTION - MISCELLANEOUS 1 VTE PHARMACOLOGIC PROPHYLAXI S CURRENTLY ORDERED OR ON ALTERNATIVE THER 1 04/30/2017 IV Count Last Ordered Date First Orde red Date IV REQUEST 1 05/01/2017 Admission Count Last Ordered Date First Orde red Date ED BED REQUEST 1 04/30/2017 STATUS: INPATIENT ACUTE ADMISSION 1 018 Transfer Count Last Ordered Date First Orde red Date NOTIFY PPS OF DISCHARGE COMPLETE 1 05/05/19 18 CHANGE PCP 1 05/02/2017 PPS NOTIFICATION OF PATIENT ARRIVAL ON UNIT 1 04/30/2017 UR PATIENT STATUS CHANGE 1 04/30/2017 Discharge Count Last Ordered Date First Orde red Date DISCHARGE PATIENT 1 05/04/2017 Legal Count Last Ordered Date First Orde red Date MISCELLANEOUS DISCHARGE INSTRUCTIONS 6 04/201705/01/2017 documented in this encounter Care Teams Sales Representative Supervisor Relationship Specialty Start Date End Date None, Provider PCP - General 04/30/17 05/01/17 Katia Stone, PABijalC [address] [place] [id number] PCP - General 05/02/17 documented as of this encounter
--- OUTSIDE RECORDS SUMMARY | 2023-09-22 18:58 | XMS_ITS | Encounter Summary ---
Author Organization [facility] Address [address] [place] [address] Care Team Providers Care Insulation Cupola Operator Name Role Phone Katia Stone PA-C Primary Care Provider [phone] Encounter Details Date Type Department Care Team (Late st Contact Info) Description 05/20/2017 Results Only Imaging [facility] [phone] Unknown, Provider, Social History Tobacco Use Types [...] /Time OUTSIDE IMAGES - OTHER CHEST Imaging 05/20/2017 19:43 EDT documented as of this encounter Visit Diagnoses Not on filedocumented in this encounter Care Teams Insulation Cupola Operator Relationship Specialty Start Date End Date Katia Stone PA-C [address] [place] [phone] PCP - General 05/02/17 documented as of this encounter
--- OUTSIDE RECORDS SUMMARY | 2023-09-22 18:59 | XMS_ITS | Encounter Summary ---
[facility] Organization [facility] Address [facility] [place] [address] Care Team Providers Care Collision Center Manager Name Role Phone Katia Stone Primary Care Provider [phone] Reason for Visit * Auth/Cert (Routine) Specialty Diagnoses / Procedures Referred By Contgaye t Referred To Contact Diagnoses Pacemaker at end of battery life [Z45.010] Procedures PRO REMOVAL PACER PLSE GEN W RPLMT PACER PLSE GEN DUAL LEAD PRO REPOSITION PREVIOUSLY IMPLANTED TRANSVENOUS ELECTRODE ELECTROPHYSIOLOGY PROCEDURE REMOVAL PPM GENERATOR W REPL PPM GEN; DUAL LEAD (WRVU 5.52) REPOSITIONING PREVIOUSLY PLACED ELECTRODE (ICD OR PM) (WRVU 4.92) Dylan Story MD [facility] [place] [id number] [facility] Referral ID Status Reason Start Date Expiration Date Visits Re quested Visits Authorized [id number] 1 1 Encounter Details Date Type Department Care Team (Latest Contact Info) Description 09/23/2022 11:49 AM EDT - 09/24/2022 1:21 PM EDT Hospital Encounter Heart and Vascular Unit Level 4 [place] [address] Dylan Story MD [facility] [place] [id number] Pacemaker at end of battery life; Pacemaker battery depletion; AV block; Complete heart block Discharge Disposition: Intermediate Care Facility Social History Tobacco Use Types Packs/Day Years Used Date Smoking Tobacco: Never Smokeless Tobacco: Never Tobacco Cessation:Counseling Given: Not Answered Alcohol Use Standard Drinks/Week Comments Yes 14 (1 standard drink = 0.6 oz pu re alcohol) [facility] Inpatient Questions Answer Date Recorded Does Anyone [...] on file Sexual Orientation Not on file documented as [...] Mass Index 33.33 09/23/2022 12:26 PM EDT documented in this encounter Discharge Summaries * Dylan Story MD - 09/24/2022 1:21 PM EDT Discharge Summary Patient Name: Tim Mera Patient Age: 71 y.o. Language: Welsh Race: White Ethnicity: Not nor Admit date: 09/23/2022 Discharge date and time: 09/24/2022 1315 Attending Physician: Dylan Story MD Discharge Physician: Dylan Story MD Follow-up Recommendations for Providers: NEW - replaced [employer] dual lead pacemaker with new atrial and ventricular pacing leads. Old leads capped and abandoned. Stable for discharge to home Needs non-emergent ambulance for transport back to [facility] in [place], [place]. Outpatient follow up scheduled at [facility] for 10 post implant check. Inpatient Provider Contact Information: Cardiac Electrophysiology [phone], option #3 Discharge Diagnoses (Hospital Problems) and Secondary Diagnoses (Chronic Problems): Active Hospital Problems Diagnosis Complete heart block Pacemaker - dual lead [employer] pacemaker Resolved Hospital Problems No resolved problems to display. Operations/Major Procedures: Operations: Procedure(s): ELECTROPHYSIOLOGY PROCEDURE REMOVAL PPM GENERATOR W REPL PPM GEN; DUAL LEAD (WRVU 5.52) REPOSITIONING PREVIOUSLY PLACED ELECTRODE (ICD OR PM) (WRVU 4.92) 09/23/2022 History of Presentation: 71 y.o. male with a history of complete heart block s/p dual chamber permanent pacemaker April 2017 at [facility] course complicated by both pericardial effusion with tamponade and pleural effusion (withchronic left pleural inflammation) with RA lead repositioning May 2020 who presents for generatorreplacement as well as new atrial lead in the setting of fracture of prior right atrial lead. Hospital Course: During the procedure, he was also found to have RV lead insulation breach. Both the pld RA and RV leads were capped and abandoned and new RA and RV pacing leads were implanted. A new [employer] pacemaker pulse generator was also implanted. Vital Signs at Discharge: BP: 104/61 (radial), Heart Rate: 60, Temp: 36.8 ??C (98.2 ??F), Resp: 18, BMI (Calculated): 33.33 Height: 180.3 cm (5' 11) (09/23/22 1806) Weight: 108.4 kg (239 lb) (09/23/22 1226) Functional and Cognitive Status: functional; alert and oriented Admission Diagnoses: Complete heart block [I44.2] Discharge Diagnoses: Replaced pacemaker pulse generator; inserted new atrial and ventricular pacingleads Admission Condition: fair Indication for Admission: Pacemaker cell depletion; fractured atrial pacing lead Consults: none Important Studies and Lab Data: Latest Reference Range & Units 09/23/22 12:05 Sodium 135 - 145 mmol/L 130 (L) Potassium 3.5 - 5.0 mmol/L 5.0 Chloride 98 - 107 mmol/L 95 (L) CO2 22 - 31 mmol/L 25 Anion Gap 5 - 15 mmol/L 10 BUN 10 - 20 mg/dL 8 (L) Creatinine 0.80 - 1.50 mg/dL 0.58 (L) Estimated GFR >=60 mL/min/1.73 m?? 104 Calcium 8.5 - 10.5 mg/dL 9.3 Glucose Lvl 65 - 199 mg/dL 106 (L): Data is abnormally low Treatments: Ribbon Lap Machine Tender Model # Serial # Generator (New) [employer] [id number] Atrial Lead (New) [employer] [id number] RV Lead [employer] [id number] [id number] Old RA lead capped and abandoned Old RV lead found to have insulation deterioration and this lead was also capped and abandoned New RA and RV leads placed [employer] pulse generator implanted DDD @ 60/120 Discharge Exam: Vital Signs: Last value Range last 12 hrs Temperature Temp: 36.9 ??C (98.4 ??F) Temp: [36.6 ??C (97.9 ??F)-36.9 ??C (98.4 ??F)] Heart Rate Heart Rate: 62 Heart Rate: [60-64] Blood Pressure BP: 117/84 BP: (90-117)/(70-84) Respiratory Rate Resp: 16 Resp: [16-18] SpO2 SpO2: 94 % SpO2: [94 %-96 %] Vitals and nursing note reviewed. Constitutional: Appearance: Normal appearance. Cardiovascular: Rate and Rhythm: Normal rate and regular rhythm. Pulses: Normal pulses. Heart sounds: Normal heart sounds. Comments: Left sided prepectoral device implant site w/o hematoma - steristrips with Mepilex AG dressing to surface Pulmonary: Effort: Pulmonary effort is normal. Breath sounds: Normal breath sounds. Musculoskeletal: General: Normal range of motion. Skin: General: Skin is warm and dry. Neurological: General: No focal deficit present. Mental Status: He is alert and oriented to person, place, and time. Discharge Conditions/Prognosis: good Discharge to: home Updated Allergies/ADRs: No Known Allergies Immunizations Given this Hospitalization: There is no immunization history on file for this patient. Discharge Medications: Your Medications Continued medications, unchanged Dose Details acetaminophen 500 mg tablet Commonly known as: Tylenol Take 1,000 mg by mouth 2 times daily. 1,000 mg Refills: 0 albuteroL 90 mcg/actuation HFA Aerosol Inhaler Inhale 2 puffs into the lungs 3 times daily as needed. 2 puff Refills: 0 b complex vitamins Tablet Take 1 tablet by mouth daily. 1 tablet Refills: 0 benzonatate 100 mg capsule Commonly known as: Tessalon Take 100 mg by mouth 2 times daily as needed. 100 mg Refills: 0 cetirizine 10 mg chewable tablet Commonly known as: ZyrTEC Take 10 mg by mouth daily. 10 mg Refills: 0 Creon 24,000-76,000 -120,[address] capsule Take 1 capsule by mouth 3 times daily. Generic drug: zupttv-nckfzxqz-qcgdtez DR 1 capsule Refills: 0 fentaNYL 12 mcg/hr Patch 72 hr Commonly known as: Duragesic Change 1 patch on the skin every 3 days. 1 patch Refills: 0 magnesium 250 mg tablet Take 250 mg by mouth daily. 250 mg Refills: 0 melatonin 3 mg tablet Take 3 mg by mouth nightly. 3 mg Refills: 0 memantine 5 mg tablet Commonly known as: Namenda Take 5 mg by mouth 2 times daily. 5 mg Refills: 0 metoprolol succinate XL 200 mg ER 24 hr tablet Commonly known as: Toprol-XL Take 200 mg by mouth daily. 200 mg Refills: 0 pantoprazole EC [address] tablet Commonly known as: Protonix Take 40 mg by mouth daily. 40 mg Refills: 0 senna 8.6 mg tablet Commonly known as: Senokot Take 2 tablets by mouth daily. 2 tablet Refills: 0 sertraline 25 mg tablet Commonly known as: Zoloft Take 25 mg by mouth daily. 25 mg Refills: 0 spironolactone 25 mg tablet Commonly known as: Aldactone Take 100 mg by mouth daily. 100 mg Refills: 0 sucralfate 1 gram tablet Commonly known as: Carafate Take 1 g by mouth 2 times daily. 1 g Refills: 0 Smoking Status at Discharge: Social History Tobacco Use Smoking Status Never Smokeless Tobacco Never Instructions Given to Patient at Discharge: Patient Instructions FINAL PACEMAKER RECOMMENDATIONS: 1. Standard post implant discharge instructions (see below): 2. Medications as listed above. You may use ice packs over the incision. Make sure to use a cloth weigher (such as a towel) in between the ice pack and the bare skin and that it stays DRY. 3. Follow up in pacemaker clinic in 10 days for a wound check and device check. DEVICE CLINIC 1. You will be scheduled for a ~10 day wound check in the Device Clinic for: ?? Incision check ?? Device interrogation ?? Review of remote follow up and set up of home monitor 2. Your device will be checked every 3 months (either in clinic or by remote). 3. Prior to discharge, you will be given a home monitor so that your device can send clinical data to the device clinic nurses. If you are unable to set this up at home prior to your wound check, we will review this at the time of your appointment NOTE: The device data we review from your home monitor is comparable to an in- office appointment. Therefore, your insurance company will be billed for review of your data. Depending on your coverage,you may be responsible for a portion of his charge. We recommend that you contact your insurance carrier for more details about your particular coverage. WOUND CARE FOR YOUR INCISION: Your wound will usually heal in 7-10 days. Your wound may be tender, it may appear slightly red andbumpy and there may be dry, crusty scabbing. These are all normal. How to Care for your Incision: - Either you or someone with you needs to look at the wound every day. - Report any signs of infection immediately: Drainage Swelling Warmth Increased pain Fevers/chills - Call if you are concerned about infection or the edges of the wound separate - A needle should not be put into the wound area because this can damage the device. You may need to remind your healthcare provider of this concern - There are sutures inside the incision that will dissolve on their own - Do not scratch or rub the wound - Do not apply creams, lotions, or ointments to the incision until is completely healed. - You may cover the wound with gauze if it rubs on clothing and causes discomfort - Protect your wound from injury until the skin has had sufficient time to heal - Do not shower for 48 hours after implant - While in the shower, turn your back to the water nozzle so you avoid direct water pressure on thewound. Continue this for 7-10 days. - After 48 hours, you may wash the wound gently with soap and water (unless there is DermaBond on the incision - see below) - Do not submerge the incision (bathtubs, hot tubs, or swimming) for at least two weeks Your incision has been covered with a Mepilex dressing. - This dressing will stay on for 5 days. - Please remove the dressing on: Friday - If the edges pull up substantially or fluid gets underneath the Mepilex dressing, remove it sooner - Once removed, you may notice some grayish discoloration. This is normal. Your incision has been closed with: SteriStrips - These are thin adhesive strips placed over your incision to help it heal. - Leave them in place until they fall off (approximately 10-14 days) - Do not scratch, rub, or pick at them. This may pull at your incision before it is completely healed, which can increase the risk of infection. CALL IMMEDIATELY: If you develop chest pain, shortness of breath, bleeding, discharge from the incision, opening of the incision and/or fever/temperature >100 degrees F. The office scheduling phone number is [phone]. ARM MOVEMENT RESTRICTIONS POST-IMPLANT - Do not raise your elbow on the operated side above the shoulder for 6 weeks - Do not lift greater than 7 pounds (equal to a gallon of milk) on the operated side for 6 weeks. - Do not fully extend this arm in any direction away from the torso for 6 weeks - You may use your arm on the operated side, but do not make extreme movement (such as stretching or reaching for a heavy object) for 6 weeks - No driving for one week. If you have any questions or concerns about this product, please call the Cardiac ElectrophysiologyTriage Nurse at [phone], option 3. General Instructions Future Appointments and Orders Future Appointments and Orders Future Appointments Provider Department Dept Phone 10/04/2022 11:00 AM Maite Lozano RN Cardiology at [facility] Arrive at: [facility] [phone] 12/27/2022 11:00 AM Maite Lozano RN Cardiology at [facility] Arrive at: [facility] [phone] Discharge References/Attachments None Dylan Story MD [facility] Cardiac Electrophysiology 09/24/2022 2:49 PM documented in this encounter Discharge Instructions * Discharge Instructions* Humberto Ashraf PA - 09/23/2022 12:49 PM EDT * Patient Instructions* Humberto Ashraf PA - 09/24/2022 10:29 AM EDT FINAL PACEMAKER RECOMMENDATIONS: 1. Standard post implant discharge instructions (see below): 2. Medications as listed above. You may use ice packs over the incision. Make sure to use a cloth weigher (such as a towel) in between the ice pack and the bare skin and that it stays DRY. 3. Follow up in pacemaker clinic in 10 days for a wound check and device check. DEVICE CLINIC 1. You will be scheduled for a ~10 day wound check in the Device Clinic for: ?? Incision check ?? Device interrogation ?? Review of remote follow up and set up of home monitor 2. Your device will be checked every 3 months (either in clinic or by remote). 3. Prior to discharge, you will be given a home monitor so that your device can send clinical data to the device clinic nurses. If you are unable to set this up at home prior to your wound check, we will review this at the time of your appointment NOTE: The device data we review from your home monitor is comparable to an in- office appointment. Therefore, your insurance company will be billed for review of your data. Depending on your coverage,you may be responsible for a portion of his charge. We recommend that you contact your insurance carrier for more details about your particular coverage. WOUND CARE FOR YOUR INCISION: Your wound will usually heal in 7-10 days. Your wound may be tender, it may appear slightly red andbumpy and there may be dry, crusty scabbing. These are all normal. How to Care for your Incision: - Either you or someone with you needs to look at the wound every day. - Report any signs of infection immediately: Drainage Swelling Warmth Increased pain Fevers/chills - Call if you are concerned about infection or the edges of the wound separate - A needle should not be put into the wound area because this can damage the device. You may need to remind your healthcare provider of this concern - There are sutures inside the incision that will dissolve on their own - Do not scratch or rub the wound - Do not apply creams, lotions, or ointments to the incision until is completely healed. - You may cover the wound with gauze if it rubs on clothing and causes discomfort - Protect your wound from injury until the skin has had sufficient time to heal - Do not shower for 48 hours after implant - While in the shower, turn your back to the water nozzle so you avoid direct water pressure on thewound. Continue this for 7-10 days. - After 48 hours, you may wash the wound gently with soap and water (unless there is DermaBond on the incision - see below) - Do not submerge the incision (bathtubs, hot tubs, or swimming) for at least two weeks Your incision has been covered with a Mepilex dressing. - This dressing will stay on for 5 days. - Please remove the dressing on: Friday - If the edges pull up substantially or fluid gets underneath the Mepilex dressing, remove it sooner - Once removed, you may notice some grayish discoloration. This is normal. Your incision has been closed with: SteriStrips - These are thin adhesive strips placed over your incision to help it heal. - Leave them in place until they fall off (approximately 10-14 days) - Do not scratch, rub, or pick at them. This may pull at your incision before it is completely healed, which can increase the risk of infection. CALL IMMEDIATELY: If you develop chest pain, shortness of breath, bleeding, discharge from the incision, opening of the incision and/or fever/temperature >100 degrees F. The office scheduling phone number is [phone]. ARM MOVEMENT RESTRICTIONS POST-IMPLANT - Do not raise your elbow on the operated side above the shoulder for 6 weeks - Do not lift greater than 7 pounds (equal to a gallon of milk) on the operated side for 6 weeks. - Do not fully extend this arm in any direction away from the torso for 6 weeks - You may use your arm on the operated side, but do not make extreme movement (such as stretching or reaching for a heavy object) for 6 weeks - No driving for one week. If you have any questions or concerns about this product, please call the Cardiac ElectrophysiologyTriage Nurse at [phone], option 3. documented in this encounter Medications at Time of Discharge Medication Sig Dispensed Refills Start Date End Date magnesium 250 mg tablet Take 250 mg by mouth daily. cetirizine (ZyrTEC) 10 mg chewable tablet Take 10 mg by mouth daily. acetaminophen (Tylenol) 500 mg tablet Take 1,000 mg by mouth 2 times daily. memantine (Namenda) 5 mg tablet Take 5 mg by mouth 2 times daily. 07/18/2022 sertraline (Zoloft) 25 mg tablet Take 25 mg by mouth daily. 07/18/2022 fentaNYL (Duragesic) 12 mcg/hr Patch 72 hr Change 1 patch on the skin every 3 days. 08/05/2022 melatonin 3 mg tablet Take 3 mg by mouth nightly. 08/15/2022 sucralfate (Carafate) 1 gram tablet Take 1 g by mouth 2 times daily. 07/31/2022 senna (Senokot) 8.6 mg tablet Take 2 tablets by mouth daily. pantoprazole EC (Protonix) [address] tablet Take 40 mg by mouth daily. 07/18/2022 Creon 24,000-76,000 -120,[address] capsule Take 1 capsule by mouth 3 times daily. 08/05/2022 b complex vitamins Tablet Take 1 tablet by mouth daily. albuteroL 90 mcg/actuation HFA Aerosol Inhaler Inhale 2 puffs into the lungs 3 times daily as needed. 04/11/2022 spironolactone (Aldactone) 25 mg tablet Take 100 mg by mouth daily. 05/23/2022 metoprolol succinate XL (Toprol-XL) 200 mg ER 24 hr tablet Take 200 mg by mouth daily. 07/18/2022 benzonatate (Tessalon) 100 mg capsule Take 100 mg by mouth 2 times daily as needed. 05/23/2022 documented as of this encounter Progress Notes * Tim Casillas RN - 09/24/2022 10:56 AM Sherry: ambulance form Physician Certification Statement for Non-Emergency Ambulance Services Section I - General Information Tim Mera 1950 Medicare Number: [id number] Transport Date: 09/24/22 (PCS is valid for round trips on this date and for all repetitive trips in the 60-day range as noted below.) Origin: [facility] [place] [address] Destination: [facility] [address] [place] [address] Is the patient's stay covered under Medicare Part A (PPS/DRG)?: Yes Closest appropriate facility? Yes Transfer Type: N/A Section II - Medical Necessity Questionnaire Ambulance Transportation is medically necessary only if other means of transport are contraindicated or would be potentially harmful to the patient. To meet this requirement, the patient must be either bed confined or suffer from a condition such that transport by means other than ambulance is contraindicated by the patient's condition. The following questions must be answered by the medical professional signing below for this form to be valid: 1) Describe the MEDICAL CONDITION (physical and/or mental) of this patient AT THE TIME OF AMBULANCETRANSPORT that requires the patient to be transported in an ambulance and why transport by other means is contraindicated by the patient's condition: pediatrician/medical doctor required. Patient unable to tolerate seated position for transfer. Moderate to severe pain with movement dt post surgical discomfort. 2) Is the patient bed confined as defined below? No To be bed confined the patient must satisfy all three of the following conditions: - unable to get up from bed without assistance AND unable to ambulate AND unable to sit in a chair or wheelchair. 3) Can this patient safely be transported by car or wheelchair van (i.e. seated during transport, without pediatrician/medical doctor or monitoring?): No 4) In addition to complete questions 1-3 above, please select any of the following conditions that apply: *Note: supporting documentation for any boxes checked must be maintained in the patient's medical records Moderate/severe pain on movement batch attendant required Section III - Signature of Physician or Healthcare Professional I certify that the above information is true and correct based on my evaluation of this patient, and represent that the patient requires transport by ambulance and that other forms of transport are contraindicated. I understand that this information will be used by the Centers of Medicare and Medicaid Services (CMS) to support the determination of medical necessity for ambulance services, and I represent that I have personal knowledge of the patient's condition at the time of transport. Tim Casillas RN 09/24/22 Form was electronically signed and dated by the patient's Physician or Healthcare Professional *Form must be signed only by patient's attending physician for scheduled, repetitive transports. For non-repetitive, unscheduled ambulance transports, when unable to obtain the signature of the attending physician, this form was signed by Registered Nurse * Paco Haider - 09/24/2022 10:54 AM EDT Office of Care Management/Dowel Pin Worker Patient Name: Tim Mera : 1950 Patient is returning to a SNF bed at [facility]. [facility] arranged for a 1300hrs transport. Ambulance will need: Medicare ambulance form completed and signed (MD or [employer] Customer Experience Specialist RN/TEMPLATE INSPECTOR) Copy of patient demographics [place] [facility] [place] [facility] DNR/DNI order, if active No MD to MD report necessary. Please call Nursing Report to , ask for construction equipment operator. Info to accompany patient: Copies of Medication Administration Records and IV sheets for past 10 days. Plan: Dowel Pin Worker will be available to the patient and [employer]on Customer Experience Specialist-RN and/or Social Workerfor further assistance. Patient will be discharged to: [facility] [address] [place] [id number] Paco Haider Dowel Pin Worker * Humberto Ashraf PA - 09/24/2022 10:31 AM EDT Inpatient Cardiac Electrophysiology Discharge Day Note Patient Name: Tim Mera Service: EP Responsible Attending: Dylan Story MD Reason for continued hospitalization: POD#1 pacemaker pulse generator and lead replacement Active Problems: Active Hospital Problems Diagnosis Complete heart block Pacemaker - dual lead [employer] pacemaker Resolved Hospital Problems No resolved problems to display. Interval History: 71 y.o. male with a history of complete heart block s/p dual chamber permanent pacemaker April 2017 at [facility] course complicated by both pericardial effusion with tamponade and pleural effusion (withchronic left pleural inflammation) with RA lead repositioning May 2020 who presents for generatorreplacement as well as new atrial lead in the setting of fracture of prior right atrial lead. During the procedure, he was also found to have RV lead insulation breach. Both the pld RA and RV leads were capped and abandoned and new RA and RV pacing leads were implanted. A new [employer] pacemaker pulse generator was also implanted. Review of Systems Constitutional: Negative for chills, diaphoresis, fatigue and fever. Respiratory: Negative for chest tightness and shortness of breath. Cardiovascular: Negative for palpitations and leg swelling. Gastrointestinal: Negative for diarrhea, nausea and vomiting. Genitourinary: Negative for dysuria and frequency. Neurological: Negative for dizziness and light-headedness. Telemetry: HR: 60-65 AV paced Meds: Scheduled Meds: polyethylene glycoL (MIRALAX) oral powder 17 g Oral Daily loratadine 10 mg Oral Daily ihexuh-dkdrivnm-zavpgak DR 1 capsule Oral TID magnesium oxide 400 mg Oral Daily melatonin 3 mg Oral Nightly memantine 5 mg Oral BID metoprolol succinate XL 200 mg Oral Daily pantoprazole EC 40 mg Oral Daily senna 17.2 mg Oral Daily sertraline 25 mg Oral Daily spironolactone 100 mg Oral Daily sucralfate 1 g Oral BID Continuous Infusions: PRN Meds:ibuprofen, oxyCODONE-acetaminophen, benzonatate, acetaminophen Physical Exam: Vital Signs: Last value Range last 12 hrs Temperature Temp: 36.9 ??C (98.4 ??F) Temp: [36.6 ??C (97.9 ??F)-36.9 ??C (98.4 ??F)] Heart Rate Heart Rate: 62 Heart Rate: [60-64] Blood Pressure BP: 117/84 BP: (90-117)/(70-84) Respiratory Rate Resp: 16 Resp: [16-18] SpO2 SpO2: 94 % SpO2: [94 %-96 %] Physical Exam Vitals and nursing note reviewed. Constitutional: Appearance: Normal appearance. Cardiovascular: Rate and Rhythm: Normal rate and regular rhythm. Pulses: Normal pulses. Heart sounds: Normal heart sounds. Comments: Left sided prepectoral device implant site w/o hematoma - steristrips with Mepilex AG dressing to surface Pulmonary: Effort: Pulmonary effort is normal. Breath sounds: Normal breath sounds. Musculoskeletal: General: Normal range of motion. Skin: General: Skin is warm and dry. Neurological: General: No focal deficit present. Mental Status: He is alert and oriented to person, place, and time. Lab Comments: Recent Results (from the past 24 hour(s)) Basic Metabolic Panel (non-fasting) Result Value Ref Range Glucose Lvl 106 65 - 199 mg/dL BUN 8 (L) 10 - 20 mg/dL Creatinine 0.58 (L) 0.80 - 1.50 mg/dL Sodium 130 (L) 135 - 145 mmol/L Potassium 5.0 3.5 - 5.0 mmol/L Chloride 95 (L) 98 - 107 mmol/L CO2 25 22 - 31 mmol/L Anion Gap 10 5 - 15 mmol/L Calcium 9.3 8.5 - 10.5 mg/dL Estimated GFR 104 >=60 mL/min/1.73 m?? Hemogram Result Value Ref Range WBC 9.4 4.0 - 9.5 x10(3)/mcL RBC 3.77 (L) 4.58 - 5.54 x10(6)/mcL Hemoglobin 13.1 (L) 13.7 - 16.5 g/dL Hematocrit 39.5 (L) 40.5 - 48.5 % MCV 104.8 (H) 82.9 - 93.1 fL MCH 34.7 (H) 27.5 - 32.1 pg MCHC 33.2 32.0 - 35.7 g/dL Platelets 276 145 - 357 x10(3)/mcL RDWSD 47.7 (H) 36.0 - 45.0 fL RDWCV 12.3 11.4 - 13.8 % MPV 10.4 7.6 - 12.9 fL nRBC % Auto 0.0 % nRBC Abs Auto 0.000 0.000 - 0.000 x10(3)/mcL Differential, Automated Result Value Ref Range Neutrophils % 62.1 % Neutr Abs (ANC) 5.82 1.70 - 6.10 x10(3)/mcL Lymphocytes % 22.3 % Lymphocytes Abs 2.1 0.9 - 3.2 x10(3)/mcL Monocytes % 11.8 % Monocyte Abs 1.1 (H) 0.3 - 0.9 x10(3)/mcL Eosinophils % 2.1 % Eosinophils Abs 0.2 0.0 - 0.4 x10(3)/mcL Basophils % 1.1 % Basophils Abs 0.1 0.0 - 0.1 x10(3)/mcL Immature Gran % 0.60 % Osiris Gran Abs 0.06 (H) 0.00 - 0.04 x10(3)/mcL Pertinent Radiographic/Diagnostic Results: Ribbon Lap Machine Tender Model # Serial # Generator (New) [employer] [id number] Atrial Lead (New) [employer] [id number] RV Lead [employer] [id number] Old RA lead capped and abandoned Old RV lead found to have insulation deterioration and this lead was also capped and abandoned New RA and RV leads placed [employer] pulse generator implanted DDD @ 60/120 P wave: 2.2mV R wave: none above 30 Atrial impedance: 581 ohms RV impedance:777 ohms RA threshold: 0.7V @0.4ms RV threshold: 0.4V @ 0.4ms AP 38%; 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 male withhx of complete heart block, s/p dual lead [id number] at [facility], now with cell depletion, fractured atrial lead and unexpected insulation deteriorationof RV lead resulting placement of new RA and RV pacing leads along with a new pulse generator. Device function is excellent today. Plan: NEW - replaced [employer] dual lead pacemaker with new atrial and ventricular pacing leads. Old leads capped and abandoned. Stable for discharge to home Needs non-emergent ambulance for transport back to [facility] in [place], [place]. Outpatient follow up scheduled at [facility] for 10 post implant check. Provider: GIRISH Marin EP Procedural attending physician: Adiel Story MD EP Consult positional pager #[phone](EPMD) EP Device interrogation positional pager # [phone] * Rosie Ashraf RN - 09/23/2022 5:37 PM EDT 1634: Pt arrived to PACU from OR. Monitor applied, alarms set and audible. Airway maintained. Left pacer site dressing CDI. 1746: Report called to TISH Cespedes. documented in this encounter H&P Notes * Dylan Story MD - 09/23/2022 12:50 PM EDT Images from the original note were not included. Clinical Cardiac Electrophysiology Interval History and Physical Exam For Planned Procedure HISTORY OF PRESENT ILLNESS: Tim Mera is a 71 y.o. male with a history of complete heart block s/p dual chamber permanent pacemaker April 2017 at [facility] course complicated by both pericardial effusion with tamponade and pleural effusion (with chronic left pleural inflammation) with RA lead repositioning May 2020 who presents for generator replacement as well as new atrial lead in the setting of fracture of prior rightatrial lead. ROS: Denies recent fevers or chills No syncope No orthopnea No bleeding No neurological changes PHYSICAL EXAM: Vital Signs: BP (!) 131/97 Pulse 65 Temp 36.5 ??C (97.7 ??F) (Temporal) Resp 16 Ht 180.3 cm(5' 11) Wt 108.4 kg (239 lb) SpO2 93% BMI 33.33 kg/m?? A&O x 3, calm conversant, no acute distress Lung: normal respiratory effort Heart: regular pulse- there is a scar over his pacemaker site. Venous congestion is not readily evident. PROBLEM LIST: There is no problem list on file for this patient. ALLERGIES: No Known Allergies MEDICATIONS: No current facility-administered medications for this encounter. PAST SURGICAL HISTORY: Past Surgical History: Procedure Laterality Date CT GUIDED DRAIN CHEST TUBE/PLEURAL DRAIN 07/10/2021 CT Guided Drain Chest Tube/Pleural Drain 07/10/2021 Vick Boss MD [facility] RAD CT SCAN CT PERITONEAL DRAINAGE 07/10/2021 CT Guided Drain Peritoneal 07/10/2021 Vick Boss MD [facility] RAD CT SCAN LAB VALUES: Laboratory Data: Lab Results Component Value Date WBC 9.4 09/23/2022 HGB 13.1 (L) 09/23/2022 HCT 39.5 (L) 09/23/2022 MCV 104.8 (H) 09/23/2022 ASSESSMENT AND PLAN: Tim Mera is a 71 y.o. male with a history of complete heart block s/p dual chamber permanent pacemaker April 2017 at [facility] course complicated by both pericardial effusion with tamponade and pleural effusion (with chronic left pleural inflammation) with RA lead repositioning May 2020 who presents for generator replacement as well as new atrial lead in the setting of fracture of prior rightatrial lead. -Consented -Will perform venogram prior to assess LUE patency Rationales for, intended benefits and potential risk of planned procedures reviewed. The patient indicated understanding and agreement with the plan. Informed consent signed. Procedure checklist completed. Vini Lucero MD Cardiac Electrophysiology Fellow [facility] Pager [phone] 09/23/2022 I met with the patient today and independently confirmed the history, physical exam, and testing. Ipersonally reviewed and interpreted the available ECGs and additional cardiac testing (echo), as well as the labs. I agree with the detailed management plan as written in the fellow note today. I discussed this plan with the patient, who is also in agreement. Dr. Dylan Story, electrophysiology attending ([id number]) documented in this encounter Miscellaneous Notes * Care Management Discharge - Tim Casillas RN - 09/24/2022 11:30 AM EDT CARE MANAGEMENT FINAL DISCHARGE NOTE Chart reviewed, care reviewed with primary team and at interdisciplinary rounds. Patient is medically ready for discharge to [facility]. Needs for Transition of Care: Plan for discharge is: Halfway Facility / Swing Outpatient Agency/Support Group Needs: None Agency Referrals & Follow-up Care: Contact information for follow-up [facility] [address] [id number] Transportation: ambulance Ambulance Finance Conversation Completed: 09/24/2022 Spoke to: Radha Chand SMUTTER at accepting facility Verbalized Understanding: Yes Functional status prior to admission: Assistive equipment Home Environment: . . Accessibility Concerns: . na Current Functional Ability: Assistive Person, Assistive Equipment DME used at home: WC DME Needed at Discharge: none Patient is insured through: Primary Insurance: MEDICARE Payor: MEDICARE / Plan: MEDICARE PART A & B / Product Type: *No Product type* / Secondary Insurance: MEDICAID [place] Prescription Coverage: This plan was formulated with input from patient, and team. All are in agreement with plan. Tim Casillas RN * Plan of Care - Ann Marie Maki RN - 09/24/2022 4:15 AM EDT Pt has been stable during shift. Pt was c/o pain at pacer site, tylenol was provided with efficiently at beginning of shift. Pt was able to sleep during shift. NPO status active at 12am for pacer check in the morning. CXR was done this morning and result pending for review. Continue to monitor pacer site and remind pt not to raise affected arm above heart level. Problem: Adult Inpatient Plan of Care Goal: Plan of Care Review 09/24/2022414 by Ann Marie Maki RN Outcome: Ongoing (Interventions Implemented as Appropriate) 09/24/2022412 by Ann Marie Maki RN Outcome: Ongoing (Interventions Implemented as Appropriate) Goal: Patient-Specific Goal (Individualized) 09/24/2022414 by Ann Marie Maki RN Outcome: Ongoing (Interventions Implemented as Appropriate) 09/24/2022412 by Ann Marie Maki RN Outcome: Ongoing (Interventions Implemented as Appropriate) Goal: Absence of Hospital-Acquired Illness or Injury 09/24/2022414 by Ann Marie Maki RN Outcome: Ongoing (Interventions Implemented as Appropriate) 09/24/2022412 by Ann Marie Maki RN Outcome: Ongoing (Interventions Implemented as Appropriate) Goal: Optimal Comfort and Wellbeing 09/24/2022414 by Ann Marie Maki RN Outcome: Ongoing (Interventions Implemented as Appropriate) 09/24/2022412 by Ann Marie Maki RN Outcome: Ongoing (Interventions Implemented as Appropriate) Goal: Readiness for Transition of Care 09/24/2022414 by Ann Marie Maki RN Outcome: Ongoing (Interventions Implemented as Appropriate) 09/24/2022412 by Ann Marie Maki RN Outcome: Ongoing (Interventions Implemented as Appropriate) Problem: Fall Injury Risk Goal: Absence of Fall and Fall-Related Injury 09/24/2022414 by Ann Marie Maki RN Outcome: Ongoing (Interventions Implemented as Appropriate) 09/24/2022412 by Ann Mraie Maki RN Outcome: Ongoing (Interventions Implemented as Appropriate) Problem: Dysrhythmia Goal: Normalized Cardiac Rhythm Outcome: Ongoing (Interventions Implemented as Appropriate) Problem: Pain Acute Goal: Acceptable Pain Control and Functional Ability Outcome: Ongoing (Interventions Implemented as Appropriate) Problem: Infection Goal: Absence of Infection Signs and Symptoms Outcome: Ongoing (Interventions Implemented as Appropriate) Problem: Chest Pain Goal: Resolution of Chest Pain Symptoms Outcome: Ongoing (Interventions Implemented as Appropriate) * Brief Op Note - Dylan Story MD - 09/23/2022 5:10 PM EDT Brief Operative Note Patient Name: Tim Mera : [id number] MR#: [id number] Case Date: 09/23/2022 Surgeon: Surgeon(s) and Role: * Dylan Story MD - Primary * Vini Lucero MD - Fellow - Assisting Preoperative diagnosis: Pacemaker at end of battery life [Z45.010] Postoperative diagnosis: fractured RA lead, damaged RV lead. S/p implantation of new RA and RV leads and new pacemaker pulse generator. Procedure(s) (LRB): ELECTROPHYSIOLOGY PROCEDURE (Left) REMOVAL PPM GENERATOR W REPL PPM GEN; DUAL LEAD (WRVU 5.52) (N/A) REPOSITIONING PREVIOUSLY PLACED ELECTRODE (ICD OR PM) (WRVU 4.92) (N/A) Anesthesia: Anesthesia type not filed in the log. Findings: see above. Acceptable pacemaker function Complications: none Intake: Intraprocedure Crystalloid Total Intake Lactated Ringers 300.00 mL ceFAZolin 10.00 mL Total Intake 310 mL Transfusion No data found in the last 1 encounters. Output: Estimated Blood Loss: Urine Output:: (no urine output recorded) Other Output: (no other output recorded) Drains: none Specimens removed during surgery: None Disposition: aroused from sedation, and taken to the recovery room in a stable condition Condition: doing well without problems Attestation: Dylan Story MD Case Date: 09/23/2022 I was present and I participated during the entire procedure (does not need to include opening and closing). (Please see the Surgical Encounter Summary for any Implant and Specimen details pertinent to this patient.) Surgical Infection Prevention Bundle Used? N/A documented in this encounter Plan of Treatment Upcoming Encounters Date Type Department Care Team (Late st Contact Info) Description 11/06/2023 10:00 AM EDT Hospital Encounter Non-Invasive [place] [address] Arrived Scheduled Orders Name Type Priority Associated Diagnoses Orde r Schedule EKG 12 Lead ECG Routine Pacemaker at end of battery life One Time for 1 Occurrences starting 09/24/2022 until 09/24/2022 documented as of this encounter Procedures Procedure Name Priority Date/Time Associated Diagnosis Comments XR CHEST ONE VIEW Routine 09/24/2022 5:3 6 AM EDT EKG 12-LEAD STAT 09/23/2022 5:18 PM EDT Complete heart block ELECTROPHYSIOLOGY PROCEDURE Routine 09/23/2022 2:14 PM EDT Pacemaker at end of battery life HEMOGRAM Routine 09/23/2022 12:05 PM EDT Pacemaker battery depletion AV block DIFFERENTIAL, AUTOMATED Routine 09/24/19 12:05 PM EDT Pacemaker battery depletion AV block HC CBC,PLT & AUTO DIFF Routine 12:05 PM EDT Pacemaker battery depletion AV block BASIC METABOLIC PANEL (NON-FASTING) Routine 09/23/2022 12:05 PM EDT Pacemaker battery depletion AV block REMOVAL PPM GENERATOR W REPL PPM GEN; DUAL LEAD Routine 08/05/2022 10:50 AM EDT Pacemaker at end of battery life REPOSITIONING PREVIOUSLY PLACED ELECTRODE (ICD OR PM) Routine 08/05/2022 10:50 AM EDT Pacemaker at end of battery life documented in this encounter Results * XR Chest One View (09/24/2022 5:36 AM EDT) Anatomical Region Laterality Modality Chest N/A Digital Radiogra phy Impressions 09/24/2022 8:47 AM EDT 1. ??Intracardiac leads are not well visualized. Only 3-lead tips (with 4 leads cables) are definitively seen projecting over the right ventricle and right atrium. Consider repeat chest radiograph with EKG leads removed. 2. ??No definitive pneumothorax. 3. ??Small bilateral pleural effusions and lung base atelectasis. 4. ??Extensive calcified right pleural plaque. Thank you for letting us participate in the care of this patient. ??If you are a health care provider and have any questions regarding this report, please contact the number below. ??For patients who have questions please contact the health healthcare administration intern that requested your imaging first. ? Narrative 09/24/2022 8:47 AM EDT EXAMINATION: XR CHEST ONE VIEW CLINICAL HISTORY: Post CIED implantation, assess for lead placement and rule out pneumothorax TECHNIQUE: 1 view of the chest , single image COMPARISON: CT chest abdomen pelvis 07/09/2021. FINDINGS: Pulse generator projects over the left chest wall with 2 intracardiac leads. One lead tip projects over the right atrium and 2-lead tips project over the right ventricle. The fourth lead tip is not definitively seen. EKG leads are present. Surgical clips project over the gallbladder fossa. There are low bilateral lung volumes bronchovascular crowding at the lung bases. There is dense calcification of the right pleura. No definitive pneumothorax. Probable small bilateral pleural effusions, left larger than right. There is mitral annular calcification. Magnified size of the cardiomediastinal silhouette from portable technique. Limited assessment of osseous structures demonstrates no acute abnormality. Procedure Note Denilson Puentes MD - 09/24/2022 EXAMINATION: XR CHEST ONE VIEW CLINICAL HISTORY: Post CIED implantation, assess for lead placement andrule out pneumothorax TECHNIQUE: 1 view of the chest , single image COMPARISON: CT chest abdomen pelvis 07/09/2021. FINDINGS: Pulse generator projects over the left chest wall with 2 intracardiacleads. One lead tip projects over the right atrium and 2-lead tips project over theright ventricle. The fourth lead tip is not definitively seen. EKG leads are present. Surgical clips project over the gallbladder fossa. There are low bilateral lung volumes bronchovascular crowding at the lungbases. There is dense calcification of the right pleura. No definitivepneumothorax. Probable small bilateral pleural effusions, left larger than right. There is mitral annular calcification. Magnified size of thecardiomediastinal silhouette from portable technique. Limited assessment of osseousstructures demonstrates no acute abnormality. IMPRESSION 1. Intracardiac leads are not well visualized. Only 3-lead tips (with 4leads cables) are definitively seen projecting over the right ventricle andright atrium. Consider repeat chest radiograph with EKG leads removed. 2. No definitive pneumothorax. 3. Small bilateral pleural effusions and lung base atelectasis. 4. Extensive calcified right pleural plaque. Thank you for letting us participate in the care of this patient. If youare a health care provider and have any questions regarding this report,please contact the number below. For patients who have questions please contactthe health healthcare administration intern that requested your imaging first. Dylan Story MD IMG DX ORDERABLES * EKG 12 Lead (09/23/2022 5:18 PM EDT) Ventricular rate 74 BPM MUSE SYSTEM Atrial Rate 74 BPM MUSE SYSTEM P-R Interval 168 ms MUSE SYSTEM QRS Duration 164 ms MUSE SYSTEM Q-T Interval 458 ms MUSE SYSTEM QTC Calculated (Bezet) 508 ms MUSE SYSTEM Calculated P [place] 13 degrees MUSE SYSTEM Calculated R [place] -72 degrees MUSE SYSTEM Calculated T [place] 91 degrees MUSE SYSTEM INTERPRETATION Atrial-sense d ventricular- paced rhythm Abnormal ECG No previous ECGs available Confirmed by Bro Dasilva ([id number]) on 09/24/2022 9:15:33 AM MUSE SYSTEM 09/23/2022 5:18 PM EDT 09/24/2022 9:15 AM EDT Dylan Story MD ECG ORDERABLES MUSE SYSTEM * ELECTROPHYSIOLOGY PROCEDURE (09/23/2022 2:14 PM EDT) Anatomical Region Laterality Modality Other Narrative 09/27/2022 9:06 AM EDT Table formatting from the original result was not included. Images from the original result were not included. PACEMAKER GENERATOR CHANGE AND REVISION OF RA AND RV LEADS PATIENT NAME: Tim Mera PATIENT : 1950 FILTER CHANGING TECHNICIAN: Dylan Story MD FELLOW: Vini Lucero MD REFERRING PROVIDER: GIRISH Rai PROCEDURE DATE: 09/23/2022 PATIENT HISTORY: Mr. Mera is a 71 year old man with a history of complete heart block status post dual chamber [employer] pacemaker in 2018 with course complicated by pericardial and pleural effusions (left sided) and need for RA and RV leads repositioning within a month of implant. ??He also has had noted on device interrogation, evidence of RA lead fracture (noise, increasing pace threshold). After a previous, thorough and lengthy discussion regarding his lead management options, including lead extraction vs. Abandonment of the RA lead, he now presents for generator replacement (device tripped DIONICIO 07/10/22), implantation of new atrial lead, capping of old atrial lead. His LVEF is normal. PROCEDURE: The patient was brought to the Cardiac Electrophysiology laboratory in a post-absorptive, fasting state after receiving 5 scrubs to the implant area. Informed consent was obtained. A peripheral IV was in place. Continuous electrocardiographic, blood pressure, oxygen saturation and carbon dioxide monitoring was initiated. Self-adhesive cardioversion patches were positioned on the chest. IV antibiotics were given. ??A venogram was performed which indicated patent left upper extremity venous anatomy. Sedation was administered by anesthesiology. The implant site was then prepped and draped in the usual sterile fashion. ?? The implant area was infiltrated with a 50/50 mixture of lidocaine (2%) and bupivicaine (0.5%). An incision was made medial to the left deltopectoral groove immediately superior to the prior incision and sharp and blunt dissection was used down to the level of the capsule. The prior device was freed from the capsule. There was a moderate amount of scar tissue around the lead and device. Hemostasis was maintained with electrocautery. Axillary venous access was obtained once using a micropuncture kit and the modified Seldinger technique. We noted that there was resistance in passing the lead into the SVC thought to be secondary to fibrosis of the innominate likely secondary to presence of his prior leads, therefore, we used a 6F long sheath to allow the lead to pass cleanly into the heart. A lead was advanced under fluoroscopic guidance and positioned in the right atrium appendage where a stable position with adequate sensing and pacing characteristics was obtained. The required a single deployment. The lead was anchored to the pre-pectoralis fascia using 0 silk, non-absorbable suture. A soft cap was sutured in place over the old atrial lead and sutured this to the underlying fascia. We then attached the new atrial lead and the old ventricular lead to the new pacemaker generator. The pocket was flushed with antibiotic solution. It was at this point that we noted that there was a break in the RV lead insulation, at the pin collar. Given that the patient has complete AV block with no ventricular escape rhythm, we elected to place a new ventricular lead. We again gained access to the subclavian vein. Over a wire again a 6F long sheath was advanced into the subclavian vein through which was placed a pacing lead under fluoroscopic guidance. The tip of the lead was prolapsed into the RV. The lead was positioned with the tip in the septum with stable position with adequate sensing and pacing characteristics. We did note that the old ventricular lead did appear to be affixed to the free wall of the right ventricle. The lead was anchored to the pre-pectoralis fascia using 0 ethibond. A soft cap was sutured in place over the old ventricular lead and sutured this to the underlying fascia using 0 ethibond. This having been performed, we placed the device back into the pocket and surrounded the device in TYRX material. The pocket was once again irrigated with Antibiotic fluid. The device was closed with 2-0 interrupted, 2-0 running, and 3-0 running vicryl. The skin was closed with 4-0 monocryl. Steristrips and a bio-occlusive dressing was applied. ?? Dr. Story was present for and participated in the entire procedure. LEAD AND GENERATOR DATA: Ribbon Lap Machine Tender Model # Serial # Generator (New) [employer] [id number] Atrial Lead (New) [employer] [id number] RV Lead (new) [employer] [id number] REMOVED GENERATOR AND CAPPED ATRIAL LEAD: Ribbon Lap Machine Tender Model # Serial # Generator (Explanted) [employer] [id number] Atrial Lead (Capped) [employer] [id number] ?? Ventricular lead (capped) [employer] [id number] PACE/SENSE DATA: Sensed wave (mV) Threshold (V) Impedance (Ohms) Atrium 1.1 0.5 @ 0.4 ms 638 RV - 0.5 @ 0.4 ms 839 FINAL PROGRAMMING: Pacing: Mode Lower rate (ppm) Upper rate (ppm) DDD 60 120 RADIOLOGY SUMMARY: Total Fluoro time (minutes) 4.40 Dose Area Product (cGycm2) 6.9 CONCLUSIONS: Successful implantation of new right atrial and right ventricular leads and new generator. Abandonment of prior atrial lead (known lead fracture) and prior ventricular lead (insulation breach appreciated during case today). Patent left upper extremity venous anatomy with suspected mild stenosis of the course of the innominate vein. Follow up in EP clinic in 2 weeks. Procedures performed: new or replacement pacemaker with new A and V leads (cpt 55985) Dylan Story MD S Cardiac Electrophysiology 09/24/2022 1:57 PM Procedure Note Dylan Story MD - 09/27/2022 Images from the original note were not included. PACEMAKER GENERATOR CHANGE AND REVISION OF RA AND RV LEADS PATIENT NAME: Tim Mera PATIENT : 1950 FILTER CHANGING TECHNICIAN: Dylan Story MD FELLOW: Vini Lucero MD REFERRING PROVIDER: GIRISH Rai PROCEDURE DATE: 09/23/2022 PATIENT HISTORY: Mr. Mera is a 71 year old man with a history of complete heart blockstatus post dual chamber [employer] pacemaker in 2018 with coursecomplicated by pericardial and pleural effusions (left sided) and need forRA and RV leads repositioning within a month of implant. He also has hadnoted on device interrogation, evidence of RA lead fracture (noise,increasing pace threshold). After a previous, thorough and lengthydiscussion regarding his lead management options, including leadextraction vs. Abandonment of the RA lead, he now presents for generatorreplacement (device tripped DIONICIO 07/10/22), implantation of new atrial lead,capping of old atrial lead. His LVEF is normal. PROCEDURE: The patient was brought to the Cardiac Electrophysiology laboratory in apost-absorptive, fasting state after receiving 5 scrubs to the implantarea. Informed consent was obtained. A peripheral IV was in place.Continuous electrocardiographic, blood pressure, oxygen saturation andexpired carbon dioxide monitoring was initiated. Self-adhesivecardioversion patches were positioned on the chest. IV antibiotics weregiven. A venogram was performed which indicated patent left upperextremity venous anatomy. Sedation was administered by anesthesiology. Theimplant site was then prepped and draped in the usual sterile fashion.The implant area was infiltrated with a 50/50 mixture of lidocaine (2%)and bupivicaine (0.5%). An incision was made medial to the leftdeltopectoral groove immediately superior to the prior incision and sharpand blunt dissection was used down to the level of the capsule. The priordevice was freed from the capsule. There was a moderate amount of scartissue around the lead and device. Hemostasis was maintained withelectrocautery. Axillary venous access was obtained once using a micropuncture kit and themodified Seldinger technique. We noted that there was resistance inpassing the lead into the SVC thought to be secondary to fibrosis of theinnominate likely secondary to presence of his prior leads, therefore, weused a 6F long sheath to allow the lead to pass cleanly into the heart. Alead was advanced under fluoroscopic guidance and positioned in the rightatrium appendage where a stable position with adequate sensing and pacingcharacteristics was obtained. The required a single deployment. The leadwas anchored to the pre-pectoralis fascia using 0 silk, non-absorbablesuture. A soft cap was sutured in place over the old atrial lead andsutured this to the underlying fascia. We then attached the new atrial lead and the old ventricular lead to thenew pacemaker generator. The pocket was flushed with antibiotic solution.It was at this point that we noted that there was a break in the RV leadinsulation, at the pin collar. Given that the patient has complete AVblock with no ventricular escape rhythm, we elected to place a newventricular lead. We again gained access to the subclavian vein. Over a wire again a 6F longsheath was advanced into the subclavian vein through which was placed apacing lead under fluoroscopic guidance. The tip of the lead was prolapsedinto the RV. The lead was positioned with the tip in the septum withstable position with adequate sensing and pacing characteristics. We didnote that the old ventricular lead did appear to be affixed to the freewall of the right ventricle. The lead was anchored to the pre-pectoralisfascia using 0 ethibond. A soft cap was sutured in place over the oldventricular lead and sutured this to the underlying fascia using 0ethibond. This having been performed, we placed the device back into the pocket andsurrounded the device in TYRX material. The pocket was once againirrigated with Antibiotic fluid. The device was closed with 2-0interrupted, 2-0 running, and 3-0 running vicryl. The skin was closed with4-0 monocryl. Steristrips and a bio-occlusive dressing was applied. Dr. Story was present for and participated in the entire procedure. LEAD AND GENERATOR DATA: Ribbon Lap Machine Tender Model # Serial # Generator (New) [employer] [id number] Atrial Lead (New) [employer] [id number] RV Lead (new) [employer] [id number] REMOVED GENERATOR AND CAPPED ATRIAL LEAD: Ribbon Lap Machine Tender Model # Serial # Generator (Explanted) [employer] [id number] Atrial Lead (Capped) [employer] 3830 [id number] Ventricular lead (capped) [employer] [id number] PACE/SENSE DATA: Sensed wave (mV) Threshold (V) Impedance (Ohms) Atrium 1.1 0.5 @ 0.4 ms 638 RV - 0.5 @ 0.4 ms 839 FINAL PROGRAMMING: Pacing: Mode Lower rate (ppm) Upper rate (ppm) DDD 60 120 RADIOLOGY SUMMARY: Total Fluoro time (minutes) 4.40 Dose Area Product (cGycm2) 6.9 CONCLUSIONS: Successful implantation of new right atrial and right ventricular leadsand new generator. Abandonment of prior atrial lead (known lead fracture) and priorventricular lead (insulation breach appreciated during case today). Patent left upper extremity venous anatomy with suspected mild stenosis ofthe course of the innominate vein. Follow up in EP clinic in 2 weeks. Procedures performed: new or replacement pacemaker with new A and V leads(cpt 81124) Dylan Story MD S Cardiac Electrophysiology 09/24/2022 1:57 PM Dylan Story MD EP PROCEDURE ORDERAB LES * (ABNORMAL) Differential, Automated (09/23/2022 12:05 PM EDT) Neutrophils % 62.1 % [facility] Neutr Abs (ANC) 5.82 1.70 - 6.10 x10(3)/mc L [facility] Lymphocytes % 22.3 % [facility] Lymphocytes Abs 2.1 0.9 - 3.2 x10(3)/mc L [facility] Monocytes % 11.8 % [facility] Monocyte Abs 1.1(H) 0.3 - 0.9 x10(3)/mc L [facility] Eosinophils % 2.1 % [facility] Eosinophils Abs 0.2 0.0 - 0.4 x10(3)/mc L [facility] Basophils % 1.1 % [facility] Basophils Abs 0.1 0.0 - 0.1 x10(3)/mc L [facility] Immature Gran % 0.60 % [facility] Comment: Immature granulocytes(IG's)percentage and absolute count will include metamyelocytes, myelocytes, and promyelocytes. Blood smears from CBCs yielding IG's will be scanned manually for concordance. If this scan disagrees with the automated IG or if promyelocytes are noted, a manual differential will be performed. Osiris Gran Abs 0.06(H) 0.00 - 0.04 x10(3)/mc L [facility] Blood 09/23/2022 12:0 5 PM EDT 09/23/2022 12:25 PM EDT Narrative Resulting Agency Comment Spec In Lab Dylan Story MD HEMATOLOGY ORDERABLE S [facility] [place] [address] * (ABNORMAL) Hemogram (09/23/2022 12:05 PM EDT) WBC 9.4 4.0 - 9.5 x10(3)/[facility] RBC 3.77(L) 4.58 - 5.54 x10(6)/[facility] Hemoglobin 13.1(L) 13.7 - 16.5 g/dL [facility] Hematocrit 39.5(L) 40.5 - 48.5 % [facility] MCV 104.8(H) 82.9 - 93.1 fL [facility] MCH 34.7(H) 27.5 - 32.1 pg [facility] MCHC 33.2 32.0 - 35.7 g/dL [facility] Platelets 276 145 - 357 x10(3)/[facility] RDWSD 47.7(H) 36.0 - 45.0 [facility] RDWCV 12.3 11.4 - 13.8 % [facility] MPV 10.4 7.6 - 12.9 [facility] nRBC % Auto 0.0 % [facility] nRBC Abs Auto 0.000 0.000 - 0.000 x10(3)/[facility] Blood 09/23/2022 12:0 5 PM EDT 09/23/2022 12:25 PM EDT Narrative Resulting Agency Comment Spec In Lab Dylan Story MD HEMATOLOGY ORDERABLE S [facility] [place] [address] * (ABNORMAL) Basic Metabolic Panel (non-fasting) (09/23/2022 12:05 PM EDT) Glucose Lvl 106 65 - 199 mg/dL [facility] Comment:Diabetes: >=200 mg/d L plus symptoms BUN 8(L) 10 - 20 mg/dL [facility] Creatinine 0.58(L) 0.80 - 1.50 mg/dL [facility] Sodium 130(L) 135 - 145 mmol/L [facility] Potassium 5.0 3.5 - 5.0 mmol/L [facility] Comment: Please note: ??Patients with WBC >100,000 may have falsely elevated Potassium levels. ??For accurate Potassium quantification in these patients send serum separator tube (gold top) for subsequent determinations. ??Contact the Clinical Chemistry Laboratory if there are any questions. Chloride 95(L) 98 - 107 mmol/L [facility] CO2 25 22 - 31 mmol/L [facility] Anion Gap 10 5 - 15 mmol/L [facility] Calcium 9.3 8.5 - 10.5 mg/dL [facility] Estimated GFR 104 >=60 mL/min/1. 73 m?? [facility] Comment: This patient's estimated GFR was calculated using the 2020 CKD-EPI equation. The estimated GFR can vary from the measured GFR by up to 30% in the absence of rapidly changing kidney function. Assessment of the estimated GFR is not appropriate when creatinine concentrations are rapidly changing. For clinical situations in which a more precise estimate of GFR is necessary, consider alternative methods of GFR estimation such as a 24-hour urine creatinine clearance. Assignment of CKD stage 1-5 for patients with an eGFR near the transition point between stages may be based on clinical assessment of muscle mass and symptoms in addition to eGFR. Blood 09/23/2022 12:0 5 PM EDT 09/23/2022 12:25 PM EDT Narrative Resulting Agency Comment Spec In Lab Dylan Story MD CHEMISTRY ORDERABLES [facility] [place] [address] documented in this encounter Visit Diagnoses Diagnosis Complete heart block- Primary Atrioventricular block, complete Pacemaker at end of battery life Fitting and adjustment of cardiac pacemaker Pacemaker battery depletion Fitting and adjustment of cardiac pacemaker AV block Atrioventricular block, unspecified Complete heart block Atrioventricular block, complete Pacemaker - dual lead [employer] pacemaker Cardiac pacemaker in situ Pacemaker at end of battery life Fitting and adjustment of cardiac pacemaker documented in this encounter Admitting Diagnoses Diagnosis Complete heart block Atrioventricular block, complete documented in this encounter Administered Medications Inactive Administered Medications - up to 3 most recent administrations Medication Order MAR Action Action Date Dose Rate Site acetaminophen (Tylenol) tablet 650 mg 650 mg, Oral, EVERY 4 HOURS PRN, Starting on Fri09/23/22 at 1647, Until Fri09/24/22 at 1526, Pain, Fever, Mild-moderate pain (1-6), Maximum dose of acetaminophen is 4000 mg from all sources in 24 hours. When ordered for pain, acetaminophen should be given even when other ordered pain medications are indicated., Recovery (Recovery-Hospital Unit), Routine Given 09/24/2022 8:42 AM EDT 650 mg Given 09/23/2022 5:28 PM EDT 650 mg BUpivacaine (pf) (Marcaine) (5 mg/mL) 0.5% injection 150 mg 150 mg (30 mL), Subcutaneous, ONCE, 1 dose, On Fri09/23/22 at 1330, EP (Intra-Procedure), Routine Given 09/23/2022 2:10 PM EDT 150 mg HYDROmorphone (Dilaudid) (2 mg/mL) multi-dose injection solution 0.4 mg 0.4 mg, Intravenous, EVERY 10 MIN PRN, Starting on Fri09/23/22 at 1651, Until Fri09/23/22 at 1756, Pain, For Moderate to Severe Pain (6-10 out of 10), Hold for respiratory rate less than 10 per minute. Maximum dose 3 mg over one hour including administrations in the OR. If multiple pain medications are ordered, start with HYDROmorphone or morphine and use fentaNYL for breakthrough pain., PACU Recovery, Routine Given 09/23/2022 5:20 PM EDT 0.4 mg Given 09/23/2022 5:01 PM EDT 0.4 mg ibuprofen (Advil) tablet 600 mg 600 mg, Oral, EVERY 6 HOURS PRN, Starting on Fri09/24/22 at 0955, Until Fri09/24/22 at 1526, Pain, Administer orally with milk or food to minimize GI irritation. Maximum dose of 3,200 mg from all sources in 24 hours, Routine Given 09/24/2022 10:06 AM EDT 600 mg lidocaine (Xylocaine) (20 mg/mL) 2% injection 400 mg 400 mg (20 mL), Subcutaneous, ONCE, 1 dose, On Fri09/23/22 at 1330, EP (Intra-Procedure), Routine Given 09/23/2022 2:11 PM EDT 400 mg rivfhp-jmijmahh-mkkogci DR (Creon 24) 24,000-76,000 -120,000 unit per capsule 1 capsule 1 capsule, Oral, 3 TIMES DAILY, First dose on Fri09/23/22 at 2100, Until Discontinued, Routine Given 09/24/2022 8:47 AM EDT 1 capsule Given 09/23/2022 8:28 PM EDT 1 capsule loratadine (Claritin) tablet 10 mg 10 mg, Oral, DAILY, First dose on Fri09/24/22 at 0900, Until Discontinued Given 09/24/2022 8:40 AM EDT 10 mg magnesium oxide (Mag-Ox) tablet 400 mg 400 mg, Oral, DAILY, First dose on Fri09/24/22 at 0900, Until Discontinued, Routine Given 09/24/2022 8:42 AM EDT 400 mg melatonin tablet 3 mg 3 mg, Oral, NIGHTLY, First dose on Fri09/23/22 at 2100, Until Discontinued, Routine Given 09/23/2022 8:28 PM EDT 3 mg memantine (Namenda) tablet 5 mg 5 mg, Oral, 2 TIMES DAILY, First dose on Fri09/23/22 at 2100, Until Discontinued, Routine Given 09/24/2022 8:41 AM EDT 5 mg Given 09/23/2022 8:28 PM EDT 5 mg metoprolol succinate XL (Toprol-XL) tablet 200 mg 200 mg, Oral, DAILY, First dose on Fri09/24/22 at 0900, Until Discontinued, DO NOT CRUSH OR OPEN, Routine Given 09/24/2022 8:39 AM EDT 200 mg oxyCODONE-acetaminophen (Percocet) 5-325 mg per tablet 1 tablet 1 tablet, Oral, EVERY 6 HOURS PRN, Starting on Fri09/24/22 at 0956, Until Fri09/24/22 at 1526, Pain, Maximum dose of acetaminophen is 4000 mg from all sources in 24 hours., Routine Given 09/24/2022 12:54 PM EDT 1 tablet pantoprazole EC (Protonix) tablet 40 mg 40 mg, Oral, DAILY, First dose on Fri09/24/22 at 0900, Until Discontinued, DO NOT CRUSH OR OPEN, Routine Given 09/24/2022 8:40 AM EDT 40 mg polyethylene glycoL (Miralax) packet 17 g 17 g, Oral, DAILY, First dose on Fri09/24/22 at 1045, Until Discontinued, Routine Given 09/24/2022 10:06 AM EDT 17 g senna (Senokot) tablet 17.2 mg 17.2 mg, Oral, DAILY, First dose on Fri09/24/22 at 0900, Until Discontinued, Routine Given 09/24/2022 8:41 AM EDT 17.2 mg sertraline (Zoloft) tablet 25 mg 25 mg, Oral, DAILY, First dose on Fri09/24/22 at 0900, Until Discontinued, Routine Given 09/24/2022 8:39 AM EDT 25 mg spironolactone (Aldactone) tablet 100 mg 100 mg, Oral, DAILY, First dose on Fri09/23/22 at 1915, Until Discontinued, DO NOT SPLIT, CRUSH OR OPEN, Routine Given 09/24/2022 8:41 AM EDT 100 mg sucralfate (Carafate) tablet 1 g 1 g, Oral, 2 TIMES DAILY, First dose on Fri09/23/22 at 2100, Until Discontinued, Routine Given 09/24/2022 8:42 AM EDT 1 g Given 09/23/2022 8:28 PM EDT 1 g vancomycin (Vancocin) injection 1,000 mg 1,000 mg (1 g), Topical (Top), ONCE, 1 dose, On Fri09/23/22 at 1330, Warning Vesicant/Irritant Medication , EP (Intra-Procedure), Routine, Indication for (Active or Suspected): Prophylaxis Given 09/23/2022 2:11 PM EDT 1,000 mg documented in this encounter Active and Recently Administered Medications Times are shown in EDT. Scheduled Medication Order 09/22/2022 09/23/2022 09/24/2022 BUpivacaine (pf) (Marcaine) (5 mg/mL) 0.5% injection 150 mg (COMPLETED) 150 mg (30 mL), Subcutaneous, ONCE, 1 dose, On Fri09/23/22 at 1330, EP (Intra-Procedure), Routine 1410 (Given - Provider: Vini Lucero MD) lidocaine (Xylocaine) (20 mg/mL) 2% injection 400 mg (COMPLETED) 400 mg (20 mL), Subcutaneous, ONCE, 1 dose, On Fri09/23/22 at 1330, EP (Intra-Procedure), Routine 1411 (Given - Provider: Vini Lucero MD) yzsisg-zesflmhv-zgzrdnl DR (Creon 24) 24,000-76,000 -120,000 unit per capsule 1 capsule 1 capsule, Oral, 3 TIMES DAILY, First dose on Fri09/23/22 at 2100, Until Discontinued, Routine 2027 (Given - Provider: Ann Marie Maki RN) 0847 (Given - Provider: Mendy Briscoe RN) loratadine (Claritin) tablet 10 mg 10 mg, Oral, DAILY, First dose on Fri09/24/22 at 0900, Until Discontinued 0840 (Given - Provid er: Mendy Briscoe RN) magnesium oxide (Mag-Ox) tablet 400 mg 400 mg, Oral, DAILY, First dose on Fri09/24/22 at 0900, Until Discontinued, Routine 0842 (Given - Provid er: Mendy Briscoe RN) melatonin tablet 3 mg 3 mg, Oral, NIGHTLY, First dose on Fri09/23/22 at 2100, Until Discontinued, Routine 2027 (Given - Provider: Ann Marie Maki RN) memantine (Namenda) tablet 5 mg 5 mg, Oral, 2 TIMES DAILY, First dose on Fri09/23/22 at 2100, Until Discontinued, Routine 2027 (Given - Provider: Ann Marie Maki RN) 0841 (Given - Provider: Mendy Briscoe RN) metoprolol succinate XL (Toprol-XL) tablet 200 mg 200 mg, Oral, DAILY, First dose on Fri09/24/22 at 0900, Until Discontinued, DO NOT CRUSH OR OPEN, Routine 0839 (Given - Provid er: Mendy Briscoe RN) pantoprazole EC (Protonix) tablet 40 mg 40 mg, Oral, DAILY, First dose on Fri09/24/22 at 0900, Until Discontinued, DO NOT CRUSH OR OPEN, Routine 0840 (Given - Provid er: Mendy Briscoe RN) polyethylene glycoL (Miralax) packet 17 g 17 g, Oral, DAILY, First dose on Fri09/24/22 at 1045, Until Discontinued, Routine 1006 (Given - Provid er: Mendy Briscoe RN) senna (Senokot) tablet 17.2 mg 17.2 mg, Oral, DAILY, First dose on Fri09/24/22 at 0900, Until Discontinued, Routine 0841 (Given - Provid er: Mendy rBiscoe RN) sertraline (Zoloft) tablet 25 mg 25 mg, Oral, DAILY, First dose on Fri09/24/22 at 0900, Until Discontinued, Routine 0839 (Given - Provid er: Mendy Briscoe RN) spironolactone (Aldactone) tablet 100 mg 100 mg, Oral, DAILY, First dose on Fri09/23/22 at 1915, Until Discontinued, DO NOT SPLIT, CRUSH OR OPEN, Routine 1914 (Not Given - Provider: Ann Marie Maki RN - Reason: Order parameters not met - Comment: BP=95/70) 0841 (Given - Provider: Mendy Briscoe RN) sucralfate (Carafate) tablet 1 g 1 g, Oral, 2 TIMES DAILY, First dose on Fri09/23/22 at 2100, Until Discontinued, Routine 2027 (Given - Provider: Ann Marie Maki RN) 0842 (Given - Provider: Mendy Briscoe, TISH) vancomycin (Vancocin) injection 1,000 mg (COMPLETED) 1,000 mg (1 g), Topical (Top), ONCE, 1 dose, On Fri09/23/22 at 1330, Warning Vesicant/Irritant Medication , EP (Intra-Procedure), Routine, Indication for (Active or Suspected): Prophylaxis 1411 (Given - Provider: Vini Lucero MD) PRN Medication Order 09/22/2022 09/23/2022 09/24/2022 acetaminophen (Tylenol) tablet 650 mg 650 mg, Oral, EVERY 4 HOURS PRN, Starting on Fri09/23/22 at 1647, Until Fri09/24/22 at 1526, Pain, Fever, Mild-moderate pain (1-6), Maximum dose of acetaminophen is 4000 mg from all sources in 24 hours. When ordered for pain, acetaminophen should be given even when other ordered pain medications are indicated., Recovery (Recovery-Hospital Unit), Routine 1728 (Given - Provider: Rosie Ashraf RN) 0842 (Given - Provider: Mendy Briscoe, TISH) benzonatate (Tessalon) capsule 100 mg 100 mg, Oral, 2 TIMES DAILY PRN, Starting on Fri09/23/22 at 1815, Until Fri09/24/22 at 1526, Cough, DO NOT CRUSH OR OPEN, Routine HYDROmorphone (Dilaudid) (2 mg/mL) multi-dose injection solution 0.4 mg (CANCELED)(Linked Group 1) 0.4 mg, Intravenous, EVERY 10 MIN PRN, Starting on Fri09/23/22 at 1651, Until Fri09/23/22 at 1756, Pain, For Moderate to Severe Pain (6-10 out of 10), Hold for respiratory rate less than 10 per minute. Maximum dose 3 mg over one hour including administrations in the OR. If multiple pain medications are ordered, start with HYDROmorphone or morphine and use fentaNYL for breakthrough pain., PACU Recovery, Routine 1701 (Given - Provider: Rosie Ashraf RN)1720 (Given - Provider: Rosie Ashraf RN) ibuprofen (Advil) tablet 600 mg 600 mg, Oral, EVERY 6 HOURS PRN, Starting on Fri09/24/22 at 0955, Until Fri09/24/22 at 1526, Pain, Administer orally with milk or food to minimize GI irritation. Maximum dose of 3,200 mg from all sources in 24 hours, Routine 1006 (Given - Provid er: Mendy Briscoe RN) oxyCODONE-acetaminophen (Percocet) 5-325 mg per tablet 1 tablet 1 tablet, Oral, EVERY 6 HOURS PRN, Starting on Fri09/24/22 at 0956, Until Fri09/24/22 at 1526, Pain, Maximum dose of acetaminophen is 4000 mg from all sources in 24 hours., Routine 1254 (Given - Provid er: Mendy Briscoe RN) Linked Groups Order Group 1: HYDROmorphone (Dilaudid) (2 mg/mL) multi-dose injection solution 0.2 mg (CANCELED) 0.2 mg, Intravenous, EVERY 10 MIN PRN, Starting on Fri09/23/22 at 1651, Until Fri09/23/22 at 1756, Pain, For Mild to Moderate Pain (1-5 out of 10), Hold for respiratory rate less than 10 per minute. Maximum dose 3 mg over one hour including administrations in the OR. If multiple pain medications are ordered, start with HYDROmorphone or morphine and use fentaNYL for breakthrough pain., PACU Recovery, Routine Or HYDROmorphone (Dilaudid) (2 mg/mL) multi-dose injection solution 0.4 mg (CANCELED)Jump to med 0.4 mg, Intravenous, EVERY 10 MIN PRN, Starting on Fri09/23/22 at 1651, Until Fri09/23/22 at 1756, Pain, For Moderate to Severe Pain (6-10 out of 10), Hold for respiratory rate less than 10 per minute. Maximum dose 3 mg over one hour including administrations in the OR. If multiple pain medications are ordered, start with HYDROmorphone or morphine and use fentaNYL for breakthrough pain., PACU Recovery, Routine documented in this encounter Care Teams Coll[facility] Center Manager Relationship Specialty Start Date End Date Katia Stone PA [address] [place] [address] PCP - General General Internal Medicine 11/10/18 documented as of this encounter
--- OUTSIDE RECORDS SUMMARY | 2023-09-22 18:59 | XMS_ITS | Encounter Summary ---
Author Organization [facility] [place] [address] Care Team Providers Care Eeo Officer Name Role Phone Katia Stone Primary Care Provider [phone] Encounter Details Date Type Department Care Team (Late st Contact Info) Description 07/23/2021 Notes [place] [id number] Mykel Stern, [facility] [place] [address] [place] [address] Social History Tobacco Use Types Packs/Day Years Used Date Smoking Tobacco: Never Assessed Sex and Gender Information Value Date Recorded Sex Assigned at Not on file Gender Identity Not on file Sexual Orientation Not on file documented as of this encounter H&P Notes * Mykel Stern, - 07/23/2021 11:07 AM EDT Images from [...] catheters were placed into both collections on 12/22. Now presenting for evaluation of the gallbladder fossa drainage catheter. Original drainage catheter placements were requested by Dr. Virginia Price of [facility]. Unclear follow up in our [...] Tube/Pleural Drain 07/10/2021 Vick Boss MD [facility] RAD CT SCAN ??? CT PERITONEAL DRAINAGE 07/10/2021 CT Guided Drain Peritoneal 07/10/2021 iVck Boss MD [facility] RAD CT SCAN Medications: Allergies: Patient [...] collections on 07/10/21. Now presenting for evaluation ofthe gallbladder fossa drainage catheter. Plan: Planned procedure: Gallbladder [...] AM EDT Hospital Encounter Non-[place] [address] Arrived documented as of this encounter Visit Diagnoses Not on filedocumented in this encounter Care Teams Eeo Officer Relationship Specialty Start Date End Date Katia Stone PA [address] [place] [address] PCP - General General Internal Medicine 11/10/18 documented as of this encounter
--- OUTSIDE RECORDS SUMMARY | 2023-09-22 18:59 | XMS_ITS | Encounter Summary ---
Author Organization [facility] Address [facility] [place] [address] Care Team Providers Care Roller Cleaner Name Role Phone Katia Stone Primary Care Provider [phone] Reason for Visit * Auth/Cert (Routine) Specialty Diagnoses / Procedures Referred By Contac t Referred To Contact Diagnoses Pacemaker at end of battery life [Z45.010] Procedures PRO REMOVAL PACER PLSE GEN W RPLMT PACER PLSE GEN DUAL LEAD PRO REPOSITION PREVIOUSLY IMPLANTED TRANSVENOUS ELECTRODE ELECTROPHYSIOLOGY PROCEDURE REMOVAL PPM GENERATOR W REPL PPM GEN; DUAL LEAD (WRVU 5.52) REPOSITIONING PREVIOUSLY PLACED ELECTRODE (ICD OR PM) (WRVU 4.92) Dylan Story MD [facility] [place] [address] [facility] Referral ID Status Reason Start Date Expiration Date Visits Re quested Visits Authorized [id number] 1 1 Encounter Details Date Type Department Care Team (Late st Contact Info) Description 09/23/2022 1:23 PM EDT Anesthesia Event [place] [address] Alida Lopez MD [facility] [place] [address] Anesthesia Record Procedure Summary Procedure Name Responsible Anesthesiologist Anesthesia Start Time Anesthesia Stop Time ELECTROPHYSIOLOGY PROCEDURE (Left) Alida Lopez MD 09/23/22 1323 09/23/22 1639 Events Date Time Event Comment 09/23/2022 1323 AN Verify 1323 Start 1328 An Start Data 1348 Anesthesia Ready 1410 Procedure Start 1520 Break/Relief In I assumed ca re for Break Relief before which we: 1. Identified the patient 2. Identified the responsible provider(s) 3. Reviewed the pertinent medical history 4. Discussed the surgical plan and course 5. Reviewed intra-op anesthesia management and issues during anesthesia 6. Set expectations for the relief (and/or post-procedure) period 7. Allowed opportunity for questions and acknowledgement of understanding Rick Betancourt CRNA 1540 Break/Relief Out 1631 an stop data 1638 Recovery or ICU Handoff Evette ent care was transferred to the destination unit staff after review of the patient's medical history, current anesthetic/surgical status and plan, according to the Provider Handoff Checklist. 1639 Stop 1722 Meds Name Total Midazolam 2 mg fentaNYL 100 mcg Propofol 100 mg Propofol INF 1,052.56 mg ceFAZolin 2 g PHENYLephrine INF 1,340 mcg PHENYLephrine 80 mcg ePHEDrine 15 mg Ondansetron 4 mg Lactated Ringers 300 mL * Agents Name O2 Air N2O O2 Auxiliary Flowmeter 1 * Blood No blood administrations on file. Lines, Drains, and Airways Type Details Placement Removal Drain/Device Site 07/10/21; 1125; Righ t; lower quadrant; collapsible closed device; Karyn OAKES 07/10/21 1125 by Marilyn Duncan RN Chest Tube 07/10/21; 1200; Left ; lateral; inserted in IR by Dr. Boss 07/10/21 1200 by Marilyn Duncan RN Incision 09/23/22; 1415; Left ; chest; horizontal 09/23/22 1415 by Melissa Hernandes RN (RETIRED) Peripheral IV Line - Single Lumen 07/10/21; 1012; metacarpal vein (top of hand), left; [id number] catheter system; 22 gauge; OSH; 09/23/22; 1307 07/10/21 1012 by Marilyn Duncan RN 09/23/22 1307 by Jessica Sandhu RN (RETIRED) Peripheral IV Line - Single Lumen 09/23/22; 1307; metacarpal vein (top of hand), left; [id number] catheter system; Anatomical Landmarks; 20 gauge; anes; distraction, tolerated well, appears comfortable; catheter/device intact; 09/24/22; 1150 09/23/22 1307 by Jessica Sandhu RN 09/24/22 1150 by Mendy Briscoe RN documented in this encounter Social History Tobacco Use Types Packs/Day Years Used Date Smoking Tobacco: Never Smokeless Tobacco: Never Alcohol Use Standard Drinks/Week Comments Yes 14 (1 standard drink = 0.6 oz pu re alcohol) IPV Inpatient Questions Answer Date Recorded Does [...] on file documented as of this encounter OR Notes * Anesthesia Postprocedure Evaluation - Alida Lopez MD - 09/23/2022 5:23 PM EDT Department of Anesthesiology Post-procedure Note Patient: Tim Mera Procedure Summary Date: 09/23/22 Room / Location: EP B-LAB ROOM / [facility] EP LABS Anesthesia Start: 1323 Anesthesia Stop: 1639 Procedures: ELECTROPHYSIOLOGY PROCEDURE (Left) REMOVAL PPM GENERATOR W REPL PPM GEN; DUAL LEAD (WRVU 5.52) (Chest) REPOSITIONING PREVIOUSLY PLACED ELECTRODE (ICD OR PM) (WRVU 4.92) Diagnosis: Pacemaker at end of battery life (Pacemaker at end of battery life [Z45.010]) Providers: Dlyan Story MD Responsible Provider: Alida Lopez MD Anesthesia Type: MAC ASA Status: 3 All Anesthesia Providers: Anesthesiologist: Alida Lopez MD PLATE FORMER: Jill Ríos CRNA Vitals Value Taken Time BP 125/94 09/23/22 1715 Temp 36.4 ??C (97.5 ??F) 09/23/22 1634 Pulse 73 09/23/22 1722 Resp 20 09/23/22 1722 SpO2 92 % 09/23/22 1722 Pain Level 10 09/23/22 1720 Vitals shown include unvalidated device data. Patient Location: PACU/[facility] Level of Consciousness: Conscious but Sleepy Pain Management: Satisfactory Analgesia PONV: None Cardiovascular Status: At Baseline and Hemodynamically Stable Respiratory Status: Stable Respiratory Status and Supplemental O2 (NC or FM) Postoperative Fluid Status: Intravascular EUvolemia Possible Anesthetic Complications: NONE apparent at time of evaluation Final Primary Anesthesia Type: MAC (The anesthetic type performed was the same as planned.) Comments: * Anesthesia Preprocedure Evaluation - Alida Lopez MD - 09/23/2022 12:13 PM EDT Images from the original note were not included. Pre-Anesthesia Evaluation for: Tim emerson 71 y.o. male. Procedure(s): ELECTROPHYSIOLOGY PROCEDURE REMOVAL PPM GENERATOR W REPL PPM GEN; DUAL LEAD (WRVU 5.52) REPOSITIONING PREVIOUSLY PLACED ELECTRODE (ICD OR PM) (WRVU 4.92) There are no problems to display for this patient. No past medical history on file. Past Surgical History: Procedure Laterality Date ??? CT GUIDED DRAIN CHEST TUBE/PLEURAL DRAIN 07/10/2021 CT Guided Drain Chest Tube/Pleural Drain 07/10/2021 Vick Boss MD [facility] RAD CT SCAN ??? CT PERITONEAL DRAINAGE 07/10/2021 CT Guided Drain Peritoneal 07/10/2021 Vick Boss MD [facility] RAD CT SCAN Social History Tobacco Use ??? Smoking status: Not on file ??? Smokeless tobacco: Not on file Substance Use Topics ??? Alcohol use: Not on file Social History Substance and Sexual Activity Drug Use Not on file No Known Allergies Medications: MAR and/or home medications have been reviewed. Physical Exam: Preprocedure Vitals Current as of 09/23/22 1213 No BP, pulse, respiration, SpO2, or temperature recorded. Height: Weight: BMI: IBW: Airway Assessment: Mallampati: IV TM distance: >3 FB Neck ROM: full Cardiovascular Assessment: system normal Pulmonary Assessment: unlabored breathing Dental Assessment: Misc Assessment: Last Filed Perioperative Cognitive Screening None Anesthesia Plan: ASA 3 MAC, with a(n) intravenous induction 71 y.o. male s/f PM replacement (c/b elevated RA lead pacing threshold and pericardial effusion) PMHx: COPD (albuterol), CAD (metoprolol), HTN, mood (sertraline, spironolactone), GERD (pantoprazole) Allergies: No Known Allergies Social Hx: 2 beers a night EtOH, no Tobacco, no Marijuana Physical activity: uses a wheelchair, able to transfer ROS negative for GERD, CP, SOB, dizziness. Notes and labs reviewed. Patient personally seen and examined. We discussed benefits, indications, and risks of anesthesia (including but not limited to sore throat, dental injury, nerve injury, possible/prolonged intubation, cardiac, pulmonary, or neurologic event). Risk and benefits of sedation discussed with patient. All efforts will be made to keep patient comfortable and in an unaware sedated state; however, due to the nature of sedation it is possible to hear people talking during the procedure and to be aware of surroundings. Patient instructed to informour team of any needs or discomforts while with us today. Plan MAC, standard ASA monitors, adequate PIV access. Alida Lopez MD Region - Other Informed Consent: Anesthetic plan and risks discussed with patient. Plan discussed with PLATE FORMER and attending. Anesthesia Screening documented in this encounter Plan of Treatment Upcoming Encounters Date Type Department Care Team (Late st Contact Info) Description 11/06/2023 10:00 AM EDT Hospital Encounter Non-[place] [address] Arrived documented as of this encounter Visit Diagnoses Not on filedocumented in this encounter Administered Medications Inactive Administered Medications - up to 3 most recent administrations Medication Order MAR Action Action Date Dose Rate Site ceFAZolin (Ancef) 1 g in dextrose 5% 50 mL infusion Intravenous, PRN, Starting on Fri09/23/22 at 1358, Until Fri09/23/22 at 1639, Administer over 30 Minutes, Anesthesia Intra-op Given 09/23/2022 1:58 PM EDT 2 g ePHEDrine sulfate (5 mg/mL) multi-dose injection Intravenous, PRN, Starting on Fri09/23/22 at 1436, Until Fri09/23/22 at 1639, Anesthesia Intra-op, Routine Given 09/23/2022 3:39 PM EDT 5 mg Given 09/23/2022 3:00 PM EDT 5 mg Given 09/23/2022 2:36 PM EDT 5 mg fentaNYL (pf) (50 mcg/mL) multi-dose injection Intravenous, PRN, Starting on Fri09/23/22 at 1352, Until Fri09/23/22 at 1639, Anesthesia Intra-op, Routine Given 09/23/2022 2:12 PM EDT 25 mcg Given 09/23/2022 2:10 PM EDT 25 mcg Given 09/23/2022 1:52 PM EDT 50 mcg lactated ringers infusion Intravenous, CONTINUOUS PRN, Starting on Fri09/23/22 at 1315, Until Fri09/23/22 at 1639, Anesthesia Intra-op New Bag 09/23/2022 1:15 PM EDT midazolam (pf) (Versed) (1 mg/mL) multi-dose injection Intravenous, PRN, Starting on Fri09/23/22 at 1323, Until Fri09/23/22 at 1639, Anesthesia Intra-op, Routine Given 09/23/2022 1:31 PM EDT 1 mg Given 09/23/2022 1:23 PM EDT 1 mg ondansetron (pf) (Zofran) (2 mg/mL) injection Intravenous, PRN, Starting on Fri09/23/22 at 1619, Until Fri09/23/22 at 1639, Anesthesia Intra-op, Routine Given 09/23/2022 4:19 PM EDT 4 mg PHENYLephrine (Alf-Synephrine) (80 mcg/mL) in sodium chloride 0.9% 250 mL infusion Intravenous, CONTINUOUS PRN, Starting on Fri09/23/22 at 1438, Until Fri09/23/22 at 1639, Anesthesia Intra-op, Routine Rate/Dose Change 09/23/2022 3:38 PM EDT 20 mcg/min 15 mL/hr Restarted 09/23/2022 3:32 PM EDT 10 mcg/min 7.5 mL/hr New Bag 09/23/2022 2:38 PM EDT 20 mcg/min 15 mL/hr PHENYLephrine in NS (PF) (ALF-SYNEPHRINE) 0.8 mg/10 mL (80 mcg/mL) multi-dose injection Syringe Intravenous, PRN, Starting on Fri09/23/22 at 1433, Until Fri09/23/22 at 1639, Anesthesia Intra-op, Routine Given 09/23/2022 2:33 PM EDT 80 mcg propofoL (Diprivan) (10 mg/mL) infusion Intravenous, CONTINUOUS PRN, Starting on Fri09/23/22 at 1348, Until Fri09/23/22 at 1639, Anesthesia Intra-op, Routine Rate/Dose Change 09/23/2022 4:06 PM EDT 40 mcg/kg/min 26.016 mL/hr Rate/Dose Change 09/23/2022 2:35 PM EDT 60 mcg/kg/min 39.0 24 mL/hr Rate/Dose Change 09/23/2022 2:32 PM EDT 70 mcg/kg/min 45.5 28 mL/hr propofoL (Diprivan) 10 mg/mL bolus injection (Anesthesia) Intravenous, PRN, Starting on Fri09/23/22 at 1348, Until Fri09/23/22 at 1639, Anesthesia Intra-op Given 09/23/2022 1:53 PM EDT 20 mg Given 09/23/2022 1:50 PM EDT 30 mg Given 09/23/2022 1:48 PM EDT 50 mg documented in this encounter Care Teams Roller Cleaner Relationship Specialty Start Date End Date Katia Stone PA [address] [place] [phone] PCP - General General Internal Medicine 11/10/18 documented as of this encounter
--- OUTSIDE RECORDS SUMMARY | 2023-09-22 18:59 | XMS_ITS | Encounter Summary ---
Author Organization [facility] [place] [address] Care Team Providers Care Beam Racker Name Role Phone Katia Stone Primary Care Provider Reason for Visit * Reason Onset Date Comments Other 09/24/2022 Cardiac Device I mplant Teaching/Education Encounter Details Date Type Department Care Team (Late st Contact Info) Description 09/24/2022 Notes Only Cardiology at [address] [phone] Magi Lowery Other (Cardiac Device Implant Teaching/Education) Social History Tobacco Use Types Packs/Day Years Used Date Smoking Tobacco: Never Smokeless Tobacco: Never Alcohol Use Standard Drinks/Week Comments Yes 14 (1 standard drink = 0.6 oz pu re alcohol) [facility] Inpatient Questions Answer Date Recorded Does Anyone [...] on file documented as of this encounter Progress Notes * Magi Lowery - 09/24/2022 9:51 AM EDT Cardiac Electrophysiology Device Clinic - Post Implant Teaching Note Tim Mera : 1950 AGE: 71 y.o. Education: Reviewed the following topics with patient. - Implant ID card - Implant manual - Electromagnetic Compatibility (EMC) - Remote monitoring Answered all questions and provided implant folder containing written materials of the above topics. patient demonstrated understanding and was instructed to call the Cardiac Device Clinic at [phone] with any questions. Plan: Post op check: sm to sched 91 day check: sm to sched Remote monitor: Latitude home monitor provided to patient today. Monitor set up demonstrated. Patient instructed to connect monitor and send manual transmission when they arrive home. Magi Lowery 09/24/22 documented in this encounter Plan of Treatment Upcoming Encounters Date Type Department Care Team (Late st Contact Info) Description 11/06/2023 10:00 AM EDT Hospital Encounter Non-[place] [address] Arrived documented as of this encounter Visit Diagnoses Not on filedocumented in this encounter Care Teams Beam Racker Relationship Specialty Start Date End Date Katia Stone PA [address] [facility] [place] [phone] PCP - General General Internal Medicine 11/10/18 documented as of this encounter
--- OUTSIDE RECORDS SUMMARY | 2023-09-22 18:59 | XMS_ITS | Encounter Summary ---
Author Organization [facility] Address [facility] [place] [address] Care Team Providers Care Station Engineer Chief Name Role Phone Katia Stone Primary Care Provider [phone] Encounter Details Date Type Department Care Team (Latest Contact Info) Description 02/09/2023 10:00 AM [facility] Hospital Encounter Non-Invasive [place] [address] Discharge Disposition: Home Social History Tobacco Use Types Packs/Day Years [...] on file documented as of this encounter Medications at [...] needed. 05/23/2022 documented as of this encounter Plan of Treatment Upcoming Encounters Date Type Department Care Team (Late st Contact Info) Description 11/06/2023 10:00 AM EDT Hospital Encounter Non-Invasive [place] [address] Arrived documented as of this encounter Visit Diagnoses Not on filedocumented in this encounter Care Teams Station Engineer Chief Relationship Specialty Start Date End Date Katia Stone PA [facility] [address] [place] [phone] PCP - General General Internal Medicine 11/10/18 documented as of this encounter
--- OUTSIDE RECORDS SUMMARY | 2023-09-22 18:59 | XMS_ITS | Encounter Summary ---
[place] [address] Care Team Providers Care Cloth Winder Name Role Phone Katia Stone Primary Care Provider Encounter Details Date Type Department Care Team (Late st Contact Info) Description 09/18/2022 Telephone Cardiology at [address] [phone] Zee Hyde Social History Tobacco Use Types Packs/Day Years Used Date Smoking Tobacco: Never Assessed Sex and Gender Information Value Date Recorded Sex Assigned at Not on file Gender Identity Not on file Sexual Orientation Not on file documented as of this encounter Miscellaneous Notes * Telephone Encounter - Zee Hyde - 09/18/2022 11:19 AM EDT Nurse called to ask what follow up visits this patient should have post device insertion. I told her he should have a 10 day check and a 91 day check and she will schedule him for those at [facility]. documented in this encounter Plan of Treatment Upcoming Encounters Date Type Department Care Team (Late st Contact Info) Description 11/06/2023 10:00 AM EDT Hospital Encounter Non[place] [phone] Arrived documented as of this encounter Visit Diagnoses Not on filedocumented in this encounter Care Teams Cloth Winder Relationship Specialty Start Date End Date Katia Stone PA [address] [place] [phone] PCP - General General Internal Medicine 11/10/18 documented as of this encounter
--- OUTSIDE RECORDS SUMMARY | 2023-09-22 18:59 | XMS_ITS | Encounter Summary ---
Author Organization [facility] Address [facility] [place] [address] Care Team Providers Care Clinical Esthetician Name Role Phone Katia Stone Primary Care Provider Encounter Details Date Type Department Care Team (Latest Contact Info) Description 11/11/2022 10:00 AM EDT - 11/11/2022 11:59 PM EDT Hospital Encounter [place] [address] Discharge Disposition: Home Social History Tobacco Use [...] AM EDT Hospital Encounter [place] [address] Arrived documented as of this encounter Procedures Procedure Name Priority Date/Time Associated Diagnosis Comments PRO PM INTERROGATION REMOTE UP TO 90 DAYS Routine 09/18/2022 6:21 AM EDT documented in this encounter Results * Cardiac Device Check - Remote (09/18/2022 6:21 AM EDT) Anatomical Region Laterality Modality Other 09/18/2022 6:21 AM EDT Radha Hammond MD IMPLANTABLE CARDIAC DEVICE documented in this encounter Visit Diagnoses Not on filedocumented in this encounter Care Teams Clinical Esthetician Relationship Specialty Start Date End Date Katia Stone PA [address] [place] [phone] PCP - General General Internal Medicine 11/10/18 documented as of this encounter
--- OUTSIDE RECORDS SUMMARY | 2023-09-22 18:59 | XMS_ITS | Encounter Summary ---
Author Organization [facility] [place] [address] Care Team Providers Care Manager City Name Role Phone Katia Stone Primary Care Provider Encounter Details Date Type Department Care Team (Latest Contact Info) Description 06/26/2021 3:30 PM EDT Ancillary Procedure Radiology Library at [facility] [place] [address] Mykel Stern [facility] [place] [address] Gallbladder abscess Social History Tobacco Use Types Packs/Day Years Used Date Smoking Tobacco: Never Assessed Sex and Gender Information Value Date Recorded Sex Assigned at Not on file Gender Identity Not on file Sexual Orientation Not on file documented as of this encounter H&P Notes * Vini Garner MD - 06/26/2021 3:30 PM EDT Images from the original note were not included. INTERVENTIONAL RADIOLOGY FOCUSED H&P and PRE-PROCEDURE NOTE: PCP: GIRISH Johnson Referring Provider: [facility] General Surgery: Virginia Price DO Planned Procedure: Planned procedure: CT guided RUQ abdominal drain and left chest tube placement Procedure Indication: Post cholecystectomy abscess. Interventional Radiology Service contacted by Dr. Price at 4:00pm regarding the procedure requestbelow. Order Questions Answers Exams requested for upload: CT ABD/PELV Date for auto-scheduling 06/26/21 Presenting Diagnosis/ Complaint: Tim Mera is a 70 y.o. male with PMH of chronic lung disease, CAD and cardiac arrhythmia with pacemaker, alcoholic liver disease and recent cholecystectomy with postoperative surgical drain placement and subsequent removal with CT evidence of a gallbladder fossaabscess and left pleural fluid collection and empyema. Since the ct imaging this afternoon there has been interval surgical drain removal due to low fluidoutput. Additionally Dr. Price states there were no GA complications during the cholecystectomy. History was communicated by Dr. Price from [facility]. They are requesting a gallbladder fossa and leftchest tube placement. Past Medical/Surgical History: There is [...] and left basilar pleural collection presenting to [facility] for ct guided abdominal and left pleural drian placement. Plan: Planned procedure: CT guided RUQ abdominal drain and left chest tube placement Labs to be performed day of procedure: Hemogram; INR; Coags (need to be faxed from [facility]) Sedation: Moderate (Conscious sedation) Prophylactic antibiotic [...] AM EDT Hospital Encounter Non-[place] [address] Arrived documented as of this encounter Procedures Procedure Name Priority Date/Time Associated Diagnosis Comments FILM LIBRARY STORAGE ONLY CT ABDOMEN AND PELVIS Routine 06/26/2021 3:25 PM EDT documented in this encounter Results * Film Library- Storage Only CT Abdomen & Pelvis (06/26/2021 3:25 PM EDT) Narrative [facility] - 06/26/2021 3:25 PM EDT This exam is auto-finalizing. It's purpose is for storage only. Mykel Stern DO IMG FILM LIBRARY ORD ERABLES [place], [place] documented in this encounter Visit Diagnoses Diagnosis Gallbladder abscess Acute cholecystitis documented in this encounter Care Teams Manager City Relationship Specialty Start Date End Date Katia Stone PA [address] [facility] [place] [address] PCP - General General Internal Medicine 11/10/18 documented as of this encounter
--- OUTSIDE RECORDS SUMMARY | 2023-09-22 18:59 | XMS_ITS | Encounter Summary ---
[place] [address] Care Team Providers Care Pathology Specialist Name Role Phone Katia Stone Primary Care Provider [phone] Encounter Details Date Type Department Care Team (Late st Contact Info) Description 11/25/2019 Telephone Cardiology at [address] [phone] Gayla Ochoa, RN Social History Tobacco Use Types Packs/Day Years Used Date Smoking Tobacco: Never Assessed Sex and Gender Information Value Date Recorded Sex Assigned at Not on file Gender Identity Not on file Sexual Orientation Not on file documented as of this encounter Miscellaneous Notes * Telephone Encounter - Gayla Ochoa RN - 11/25/2019 11:44 AM EDT Maru called and is requesting acceptance of a referral to [facility] Cardiology for Tim. States that Tim normally sees Dr. Rosenberg at [facility] however due to [facility] device clinic is [...] the final fall. He is being woken up in the middle of night by these shocks. [...] AM EDT Hospital Encounter Non[place] [address] Arrived documented as of this encounter Visit Diagnoses Not on filedocumented in this encounter Care Teams Pathology Specialist Relationship Specialty Start Date End Date Katia Stone PA [address] [place] [address] PCP - General General Internal Medicine 11/10/18 documented as of this encounter
--- OUTSIDE RECORDS SUMMARY | 2023-09-22 18:59 | XMS_ITS | Encounter Summary ---
Author Organization [facility] Address [facility] [place] [address] Care Team Providers Care Rn Recovery Name Role Phone Katia Stone Primary Care Provider Encounter Details Date Type Department Care Team (Latest Contact Info) Description 08/08/2023 10:00 AM EDT - 08/08/2023 11:59 PM EDT Hospital Encounter [place] [address] Discharge Disposition: Home Social History Tobacco Use [...] AM EDT Hospital Encounter Non[place] [address] Arrived documented as of this encounter Procedures Procedure Name Priority Date/Time Associated Diagnosis Comments PRO PM INTERROGATION REMOTE UP TO 90 DAYS Routine 06/11/2023 5:37 PM EDT documented in this encounter Results * Cardiac Device Check - Remote (06/11/2023 5:37 PM EDT) Anatomical Region Laterality Modality Other 06/11/2023 5:37 PM EDT Ivan Mar MD IMPLANTABLE CARDIAC DEVICE documented in this encounter Visit Diagnoses Not on filedocumented in this encounter Care Teams Rn Recovery Relationship Specialty Start Date End Date Katia Stone PA [address] [place] [phone] PCP - General General Internal Medicine 11/10/18 documented as of this encounter
--- OUTSIDE RECORDS SUMMARY | 2023-09-22 18:59 | XMS_ITS | Encounter Summary ---
Author Organization [facility] Address [facility] [place] [address] Care Team Providers Care Dispute Specialist Name Role Phone Katia Stone Primary Care Provider [phone] Encounter Details Date Type Department Care Team (Late st Contact Info) Description 09/11/2022 Orders Only Cardiology at [address] [phone] Dylan Story MD [facility] [place] [address] Pacemaker battery depletion; AV block Social History Tobacco Use Types Packs/Day Years [...] AM EDT Hospital Encounter Non[place] [phone] Arrived documented as of this encounter Results * (ABNORMAL) Basic Metabolic Panel (non-fasting) (09/23/2022 12:05 PM EDT) Glucose Lvl 106 65 - 199 mg/dL [facility] Comment:Diabetes: >=200 mg/d L plus symptoms BUN 8(L) 10 - 20 mg/dL [facility] Creatinine 0.58(L) 0.80 - 1.50 mg/dL [facility] Sodium 130(L) 135 - 145 mmol/L [facility] Potassium 5.0 3.5 - 5.0 mmol/L [facility] Comment: Please note: ??Patients with WBC >100,000 may have falsely elevated Potassium levels. ??For accurate Potassium quantification in these patients send serum separator tube (gold top) for subsequent determinations. ??Contact the Clinical Chemistry Laboratory if there are any questions. Chloride 95(L) 98 - 107 mmol/L [facility] CO2 25 22 - 31 mmol/L [facility] Anion Gap 10 5 - 15 mmol/L [facility] Calcium 9.3 8.5 - 10.5 mg/dL [facility] Estimated GFR 104 >=60 mL/min/1. 73 m?? [facility] Comment: This patient's estimated GFR [...] In Lab Dylan Story MD CHEMISTRY ORDERABLES Performing Organization Address City/State/[facility] Co de Phone Number [facility] [place] [address] documented in this encounter Visit Diagnoses Diagnosis Pacemaker battery depletion Fitting and adjustment of cardiac pacemaker AV block Atrioventricular block, unspecified documented in this encounter Care Teams Dispute Specialist Relationship Specialty Start Date End Date Katia Stone PA [address] [place] [phone] PCP - General General Internal Medicine 11/10/18 documented as of this encounter
--- OUTSIDE RECORDS SUMMARY | 2023-09-22 18:59 | XMS_ITS | Encounter Summary ---
Author Organization [facility] Address [facility] [place] [address] Care Team Providers Care Hospice Plan Administrator Name Role Phone Katia Stone Primary Care Provider Encounter Details Date Type Department Care Team (Latest Contact Info) Description 08/14/2021 - 08/14/2021 11:59 PM EDT Hospital Encounter Non-[place] [phone] Dylan Story MD [facility] [place] [address] CHB (complete heart block) Discharge Disposition: Home Social History Tobacco Use Types Packs/Day Years Used Date Smoking Tobacco: Never Assessed Sex and Gender Information Value Date Recorded Sex Assigned at Not on file Gender Identity Not on file Sexual Orientation Not on file documented as of this encounter Medications at Time of Discharge Medication Sig Dispensed Refills Start Date End Date predniSONE (Deltasone) 20 mg tablet Take 20 mg by mouth daily. 06/16/2017 09/20/2022 documented as of this encounter Plan of Treatment Upcoming Encounters Date Type Department Care Team (Late st Contact Info) Description 11/06/2023 10:00 AM EDT Hospital Encounter [place] [phone] Arrived documented as of this encounter Procedures Procedure Name Priority Date/Time Associated Diagnosis Comments PCM INTERROGATION 3 MONTH Routine 09/04/2021 7:46 AM EDT CHB (complete heart block) documented in this encounter Results * PCM INTERROGATION 3 MONTH (09/04/2021 7:46 AM EDT) Anatomical Region Laterality Modality Other Narrative 09/07/2021 11:24 AM EDT [facility] DDD PPM remote reviewed. Normal device function. Dylan Story MD [facility] Cardiac Electrophysiology 09/07/2021 11:23 AM Dylan Story MD IMPLANTABLE CARDIAC DEVICE documented in this encounter Visit Diagnoses Diagnosis CHB (complete heart block) Atrioventricular block, complete documented in this encounter Care Teams Hospice Plan Administrator Relationship Specialty Start Date End Date Katia Stone PA [address] [place] [address] PCP - General General Internal Medicine 11/10/18 documented as of this encounter
--- OUTSIDE RECORDS SUMMARY | 2023-09-22 18:59 | XMS_ITS | Encounter Summary ---
Author Organization [facility] [place] [address] Care Team Providers Care Burial Needs Salesperson Name Role Phone Katia Stone Primary Care Provider [phone] Reason for Visit * Reason Onset Date Comments Pre Procedure Call 09/11/2022 Encounter Details Date Type Department Care Team (Late st Contact Info) Description 09/11/2022 Telephone Cardiology at [address] [phone] Patsy Gaffney, RN Pre Procedure Call Social History Tobacco Use Types Packs/Day Years Used Date Smoking Tobacco: Never Assessed Sex and Gender Information Value Date Recorded Sex Assigned at Not on file Gender Identity Not on file Sexual Orientation Not on file documented as of this encounter Miscellaneous Notes * Telephone Encounter - Patsy Gaffney RN - 09/11/2022 8:38 AM EDTSummary: Pre Procedure Call: Generator Replacement + Atrial Lead Replacement EP ANGLE SHEAR OPERATOR COORDINATION CHECKLIST Patient Name: Tim Mera - [facility] (instructions also to be faxed) Patient Performing Used Car Salesperson: Dylan Story Referring Provider: Humberto Ashraf Date of Procedure: 09/23/22 Arrival Time/ Case Time: 12:00 pm / 1:00 pm Check In Location: [facility] Sh[facility] Desk 4W Date Patient was Called: 09/11/22 Procedure: Generator Replacement + New Atrial Lead Placement Company: [employer] Type: DC PCM Orders: Yes Lab Orders: Yes - orders pended for Dr. Story's signature Anesthesia: GA Discharge Plan/Disposition: OVERNIGHT/SSU Med Instructions: DIURETIC - hold spironolactone the AM of procedure Anticoag Type: N/A Imaging: N/A HIBICLENS?: Yes Contrast Allergy: N/A DM: N/A Coming from an assisted living facility?: No Any recent S/S of infection (fevers, on oral ABX)?: No Other Instructions: Clear liquids (water, apple juice, james rekha) OK up until 2 hrs prior to procedure, nothing to eatafter midnight on day of procedure.Same Day will call 09/20. If applicable will bring CPAP from home. Will be staying overnight , understands that they will need tower truck driver on day of discharge Notified pt that Webber catheter may be placed on day of procedure depending on type & duration of case. documented in this encounter Plan of Treatment Upcoming Encounters Date Type Department Care Team (Late st Contact Info) Description 11/06/2023 10:00 AM EDT Hospital Encounter Non-Invasive Cardiology [place] [phone] Arrived documented as of this encounter Visit Diagnoses Not on filedocumented in this encounter Care Teams Burial Needs Salesperson Relationship Specialty Start Date End Date Katia Stone PA [address] [place] [phone] PCP - General General Internal Medicine 11/10/18 documented as of this encounter
--- OUTSIDE RECORDS SUMMARY | 2023-09-22 18:59 | XMS_ITS | Encounter Summary ---
Author Organization [facility] Address [facility] [place] [address] Care Team Providers Care Acetylene Cylinder Packing Mixer Name Role Phone Katia Stone Primary Care Provider Encounter Details Date Type Department Care Team (Late st Contact Info) Description 07/22/2022 Orders Only Cardiology at [address] [phone] Humberto sAhraf PA [facility] [place] [address] Social History Tobacco Use Types Packs/Day Years Used Date Smoking Tobacco: Never Assessed Sex and Gender Information Value Date Recorded Sex Assigned at Not on file Gender Identity Not on file Sexual Orientation Not on file documented as of this encounter Progress Notes * Humberto Ashraf PA - 07/22/2022 3:02 PM EDT Cardiac Electrophysiology 71yo man with hx of CHB, s/p dual lead [employer] pacemaker implant implanted 04/30/2017, complicated by pericardial effusion with tamponade requiring RA lead reposition on 05/16/2020. RA lead function has continued to deteriorate with significantly elevated pacing threshold. His device has now tripped to DIONICIO on 07/10/2022. Dr. Story evaluated her device on 07/03/2022 at [facility] clinic visit and reviewed risk/benefit of PG replacement with placement of a new RA lead and abandonment of the old lead. I briefly discussed this with Dr. Story and have requested he be scheduled for the procedure. Provider: GIRISH Marin EP Consult attending physician: Adiel Story MD documented in this encounter Plan of Treatment Upcoming Encounters Date Type Department Care Team (Late st Contact Info) Description 11/06/2023 10:00 AM EDT Hospital Encounter Non-Invasive [place] [phone] Arrived documented as of this encounter Visit Diagnoses Not on filedocumented in this encounter Care Teams Acetylene Cylinder Packing Mixer Relationship Specialty Start Date End Date Katia Stone PA [address] [place] [place] [phone] PCP - General General Internal Medicine 11/10/18 documented as of this encounter
--- OUTSIDE RECORDS SUMMARY | 2023-09-22 18:59 | XMS_ITS | Encounter Summary ---
Author Organization [facility]ly [facility] Address [facility] [place] [address] Care Team Providers Care Quebracho Tanner Name Role Phone Katia Stone Primary Care Provider [phone] Reason for Visit * Auth/Cert (Routine) Specialty [...] Story MD [facility] [place] [address] [facility] Referral ID Status Reason Start Date Expiration Date Visits Re quested Visits Authorized [id number] 1 1 Encounter Details Date Type Department Care Team (Late st Contact Info) Description 09/23/2022 12:06 PM EDT - 09/23/2022 2:36 PM EDT Surgery [place] [address] Dylan Story MD [facility] [place] [address] ELECTROPHYSIOLOGY PROCEDURE Social History Tobacco Use Types Packs/Day Years Used Date Smoking Tobacco: Never Smokeless Tobacco: Never Tobacco Cessation:Counseling Given: Not Answered Alcohol Use Standard Drinks/Week Comments Yes 14 (1 standard drink = 0.6 oz pu re alcohol) [facility] Inpatient Questions Answer Date Recorded Does Anyone [...] Sign Reading Time Taken Comments Blood Pressure 131/97 09/23/2022 12:26 PM EDT Pulse 65 09/23/2022 12:26 PM EDT Temperature 36.5 ??C (97.7 ??F) 09/23/2022 12:26 PM E DT Respiratory Rate 16 09/23/2022 12:26 PM EDT Oxygen Saturation 93% 09/23/2022 12:26 PM EDT Inhaled Oxygen Concentration - - Weight 108.4 kg (239 lb) 09/23/2022 12:26 PM EDT Height 180.3 cm (5' 11) 09/23/2022 12:26 PM EDT Body Mass Index 33.33 09/23/2022 12:26 PM EDT documented in this encounter Discharge Summaries * Dylan Story MD - 09/24/2022 1:21 PM EDT Discharge Summary Patient Name: Tim Mera Patient Age: 71 y.o. Language: Mexican Race: White Ethnicity: Not nor Admit date: 09/23/2022 Discharge date and time: 09/24/2022 1315 Attending Physician: Dylan Story MD Discharge Physician: Dylan Story MD Follow-up Recommendations for Providers: NEW - replaced [employer] dual lead pacemaker with new atrial and ventricular pacing leads. Old leads capped and abandoned. Stable for discharge to home Needs non-emergent ambulance for transport back to [facility] in [place], [place]. Outpatient follow up scheduled at [facility] for 10 post implant check. Inpatient Provider Contact Information: Cardiac Electrophysiology [phone], option #3 Discharge Diagnoses (Hospital Problems) and Secondary Diagnoses (Chronic Problems): Active Hospital Problems Diagnosis Complete heart block Pacemaker - dual lead [employer] pacemaker Resolved Hospital Problems No resolved problems to display. Operations/Major Procedures: Operations: Procedure(s): ELECTROPHYSIOLOGY PROCEDURE REMOVAL PPM GENERATOR W REPL PPM GEN; DUAL LEAD (WRVU 5.52) REPOSITIONING PREVIOUSLY PLACED ELECTRODE (ICD OR PM) (WRVU 4.92) 09/23/2022 History of Presentation: 71 y.o. male with a history of complete heart block s/p dual chamber permanent pacemaker April 2017 at [facility] course complicated by both pericardial effusion with [...] RV pacing leads were implanted. A new [employer] pacemaker pulse generator was also implanted. [...] 106 (L): Data is abnormally low Treatments: Credit Processor Model # Serial # Generator (New) Reality Jockey [id number] Atrial Lead (New) [employer] [id number] RV Lead [employer] [id number] [id number] Old RA lead capped and abandoned Old RV lead found to have insulation deterioration and this lead was also capped and abandoned New RA and RV leads placed [employer] pulse generator implanted DDD @ 60/120 Discharge [...] by mouth 3 times daily. Generic drug: bjivyy-clfyeqnj-pvvbhub DR 1 capsule Refills: 0 fentaNYL 12 [...] the incision. Make sure to use a clothing designer (such as a towel) in between the [...] F. The office scheduling phone number is [phone]. ARM MOVEMENT RESTRICTIONS POST-IMPLANT - Do not [...] please call the Cardiac ElectrophysiologyTriage Nurse at [phone], option 3. General Instructions Future Appointments and Orders Future Appointments and Orders Future Appointments Provider Department Dept Phone 10/04/2022 11:00 AM Maite Lozano RN [place] [facility] at: [facility] [phone] 12/27/2022 11:00 AM Maite Lozano RN [place] [facility] [place]rive at: [facility] [phone] Discharge References/Attachments None Dylan Story MD [facility] [...] the incision. Make sure to use a clothing designer (such as a towel) in between the [...] F. The office scheduling phone number is [phone]. ARM MOVEMENT RESTRICTIONS POST-IMPLANT - Do not [...] please call the Cardiac ElectrophysiologyTriage Nurse at [phone], option 3. documented in this encounter Medications [...] Tim Casillas RN - 09/24/2022 10:56 AM EDTSummary: ambulance form Physician Certification Statement for Non-Emergency Ambulance Services Section I - General Information Tim Mera 1950 Medicare Number: [id number] Transport Date: 09/24/22 (PCS is valid for round trips on this date and for all repetitive trips in the 60-day range as noted below.) Origin: [place] [id number] Destination: [facility] [address] [place] [address] Is the patient's stay covered under Medicare [...] means is contraindicated by the patient's condition: medical engineer required. Patient unable to tolerate seated position [...] wheelchair van (i.e. seated during transport, without medical engineer or monitoring?): No 4) In addition to complete questions 1-3 above, please select any of the following conditions that apply: *Note: supporting documentation for any boxes checked must be maintained in the patient's medical records Moderate/severe pain on movement tool crib attendant required Section III - Signature of [...] 09/24/2022 10:54 AM EDT Office of Care Management/Internet Sales Consultant Patient Name: Tim Mera : 1950 Patient is returning to a SNF bed at [facility]. [facility] arranged for a 1300hrs transport. Ambulance will need: Medicare ambulance form completed and signed (MD or Iron Worker Foreman RN/ASSEMBLY PRESS OPERATOR) Copy of patient demographics [place] Out of Hospital DNR/DNI order, if active No MD to MD report necessary. Please call Nursing Report to , ask for solar sales representative and assessor. Info to accompany patient: Copies of Medication Administration Records and IV sheets for past 10 days. Plan: Internet Sales Consultant will be available to the patient and Iron Worker Foreman-RN and/or Social Workerfor further assistance. Patient will be discharged to: [facility] [address] [place] [address] Paco Haider Internet Sales Consultant * Humberto Ashraf PA - 09/24/2022 10:31 AM EDT Inpatient Cardiac Electrophysiology Discharge Day Note Patient Name: Tim Mera Service: EP Responsible Attending: Dylan Story MD Reason for continued hospitalization: POD#1 pacemaker pulse generator and lead replacement Active Problems: Active Hospital Problems Diagnosis Complete heart block Pacemaker - dual lead [employer] pacemaker Resolved Hospital Problems No resolved problems to display. Interval History: 71 y.o. male with a history of complete heart block s/p dual chamber permanent pacemaker April 2017 at [facility] course complicated by both pericardial effusion with [...] RV pacing leads were implanted. A new [employer] pacemaker pulse generator was also implanted. [...] Oral Daily loratadine 10 mg Oral Daily yhmnzq-jozmovvr-bnhzqpp DR 1 capsule Oral TID magnesium oxide [...] 0.00 - 0.04 x10(3)/mcL Pertinent Radiographic/Diagnostic Results: Credit Processor Model # Serial # Generator (New) [employer] [id number] Atrial Lead (New) [employer] [id number] [id number] RV Lead [employer] 7742 [id number] Old RA lead capped and abandoned Old RV lead found to have insulation deterioration and this lead was also capped and abandoned New RA and RV leads placed [employer] pulse generator implanted DDD @ 60/120 P wave: 2.2mV R wave: none above 30 Atrial impedance: 581 ohms RV impedance:777 ohms RA threshold: 0.7V @0.4ms RV threshold: 0.4V @ 0.4ms AP 38%; SMALL ELECTRIC ENGINE TECHNICIAN 100% No events Estimated battery longevity >8 years CXR: 09/24/2022 Left sided dual lead pacemaker 4 leads; two abandoned No pneumothorax +small bilateral pleural effusions Assessment: Tim Mera is a 71 y.o. male withhx of complete heart block, s/p dual lead [id number] at [facility], now with cell depletion, fractured atrial lead and unexpected insulation deteriorationof RV lead resulting placement of new RA and RV pacing leads along with a new pulse generator. Device function is excellent today. Plan: NEW - replaced [employer] dual lead pacemaker with new atrial and ventricular pacing leads. Old leads capped and abandoned. Stable for discharge to home Needs non-emergent ambulance for transport back to [facility] in [place], [place]. Outpatient follow up scheduled at [facility] for 10 post implant check. Provider: GIRISH Marin EP Procedural attending physician: Adiel Story MD EP Consult positional pager #[phone](EPMD) EP Device interrogation positional pager # [phone] * Rosie Ashraf RN - 09/23/2022 5:37 [...] dual chamber permanent pacemaker April 2017 at [facility] course complicated by both pericardial effusion with [...] Chest Tube/Pleural Drain 07/10/2021 Vick Boss MD [facility] RAD CT SCAN CT PERITONEAL DRAINAGE 07/10/2021 CT Guided Drain Peritoneal 07/10/2021 Vick Boss MD [facility] RAD CT SCAN LAB VALUES: Laboratory Data: Lab Results Component Value Date WBC 9.4 09/23/2022 HGB 13.1 (L) 09/23/2022 HCT 39.5 (L) 09/23/2022 MCV 104.8 (H) 09/23/2022 ASSESSMENT AND PLAN: Tim Mera is a 71 y.o. male with a history of complete heart block s/p dual chamber permanent pacemaker April 2017 at [facility] course complicated by both pericardial effusion with [...] completed. Vini Lucero MD Cardiac Electrophysiology Fellow [facility] Pager [phone] 09/23/2022 I met with the patient today [...] in agreement. Dr. Dylan Story, electrophysiology attending ([id number]) documented in this encounter Miscellaneous Notes * Care Management Discharge - Tim Casillas RN - 09/24/2022 11:30 AM EDT CARE MANAGEMENT FINAL DISCHARGE NOTE Chart reviewed, care reviewed with primary team and at interdisciplinary rounds. Patient is medically ready for discharge to [facility]. Needs for Transition of Care: Plan for discharge is: [facility] Facility / [facility] Outpatient Agency/Support Group Needs: None Agency Referrals & Follow-up Care: Contact information for follow-up [facility] [address] [place] [id number] Transportation: ambulance Ambulance Finance Conversation Completed: 09/24/2022 Spoke to: Radha Chand NP at accepting facility Verbalized Understanding: Yes Functional [...] Implemented as Appropriate) Goal: Patient-Specific Goal (Individualized) 09/24/2022 041 by Ann Marie Maki RN Outcome: Ongoing (Interventions Implemented as Appropriate) 09/24/2022412 by Ann Marie Maki RN Outcome: Ongoing (Interventions Implemented as Appropriate) Goal: Absence of Hospital-Acquired Illness or Injury 09/24/2022 041 by Ann Marie Maki RN Outcome: Ongoing (Interventions Implemented as Appropriate) 09/24/2022 041 by Ann Marie Maki RN Outcome: Ongoing (Interventions Implemented as Appropriate) Goal: Optimal Comfort and Wellbeing 09/24/2022 041 by Ann Marie Maki RN Outcome: Ongoing (Interventions Implemented as Appropriate) 09/24/2022 041 by Ann Marie Maki RN Outcome: Ongoing (Interventions Implemented as Appropriate) Goal: Readiness for Transition of Care 09/24/2022 041 by Ann Marie Maki RN Outcome: Ongoing [...] Operative Note Patient Name: Tim Mera : [id number] MR#: [id number] Case Date: 09/23/2022 Surgeon: Surgeon(s) and Role: [...] AM EDT Hospital Encounter [place] [address] Arrived Scheduled Orders Name Type Priority Associated [...] who have questions please contact the health team primary care physician that requested your imaging first. ? Electronically signed by: Denilson Puentes MD, [facility] ([phone]), at 09/24/2022 8:47 AM Narrative 09/24/2022 8:47 AM EDT EXAMINATION: XR [...] patients who have questions please contactthe health team primary care physician that requested your imaging first. Electronically signed by: Denilson Puentes MD, [facility]([phone]), at 09/24/2022 8:47 AM Dylan Story MD IMG DX ORDERABLES * EKG 12 Lead (09/23/2022 5:18 PM EDT) Ventricular rate 74 BPM MUSE SYSTEM Atrial Rate 74 BPM MUSE SYSTEM P-R Interval 168 ms MUSE SYSTEM QRS Duration 164 ms MUSE SYSTEM Q-T Interval 458 ms MUSE SYSTEM QTC Calculated (Bezet) 508 ms MUSE SYSTEM Calculated P [place] 13 degrees MUSE SYSTEM Calculated R [place] -72 degrees MUSE SYSTEM Calculated T [place] 91 degrees MUSE SYSTEM INTERPRETATION Atrial-sense d ventricular- paced rhythm Abnormal ECG No previous ECGs available Confirmed by Bro Dasilva ([id number]) on 09/24/2022 9:15:33 AM MUSE SYSTEM 09/23/2022 [...] PATIENT NAME: Tim Mera PATIENT : 1950 MACHINE OPERATOR PACKAGING: Dylan Story MD FELLOW: Vini Lucero MD REFERRING PROVIDER: GIRISH Rai PROCEDURE DATE: 09/23/2022 PATIENT HISTORY: Mr. Mera is a 71 year old man with a history of complete heart block status post dual chamber [employer] pacemaker in 2018 with course complicated [...] the entire procedure. LEAD AND GENERATOR DATA: Credit Processor Model # Serial # Generator (New) Reality [employer]ockey [id number] Atrial Lead (New) Reality Jockey [id number] [id number] RV Lead (new) [employer] [id number] [id number] REMOVED GENERATOR AND CAPPED ATRIAL LEAD: Credit Processor Model # Serial # Generator (Explanted) Reality Jockey [id number] [id number] Atrial Lead (Capped) Room n [employer] 3830 [id number] ?? Ventricular lead (capped) Pockit [id number] [id number] PACE/SENSE DATA: Sensed wave (mV) Threshold (V) [...] with new A and V leads (cpt 61171) Dylan Story MD [facility] Cardiac Electrophysiology 09/24/2022 1:57 PM Procedure Note Dylan Story MD - 09/27/2022 Images from the original note were not included. PACEMAKER GENERATOR CHANGE AND REVISION OF RA AND RV LEADS PATIENT NAME: Tim Mera PATIENT : 1950 MACHINE OPERATOR PACKAGING: Dylan Story MD FELLOW: Vini Lucero MD REFERRING PROVIDER: GIRISH Rai PROCEDURE DATE: 09/23/2022 PATIENT HISTORY: Mr. Mera is a 71 year old man with a history of complete heart blockstatus post dual chamber [employer] pacemaker in 2018 with coursecomplicated by [...] lead and the old ventricular lead to then pacemaker generator. The pocket was flushed with [...] the entire procedure. LEAD AND GENERATOR DATA: Credit Processor Model # Serial # Generator (New) [employer] [id number] [id number] Atrial Lead (New) [employer] [id number] [id number] RV Lead (new) [employer] [id number] [id number] REMOVED GENERATOR AND CAPPED ATRIAL LEAD: Credit Processor Model # Serial # Generator (Explanted) [employer] L111 [id number] Atrial Lead (Capped) [employer] 3830 [id number] Ventricular lead (capped) Pockit 7742 [id number] PACE/SENSE DATA: Sensed wave (mV) Threshold (V) [...] pacemaker with new A and V leads(cpt 74797) Dylan Story MD S Cardiac Electrophysiology 09/24/2022 1:57 PM Dylan Story MD EP PROCEDURE ORDERAB LES * (ABNORMAL) Differential, Automated (09/23/2022 12:05 PM EDT) Neutrophils % 62.1 % [facility] Neutr Abs (ANC) 5.82 1.70 - 6.10 x10(3)/mc L [facility] Lymphocytes % 22.3 % [facility] Lymphocytes Abs 2.1 0.9 - 3.2 x10(3)/mc L [facility] Monocytes % 11.8 % [facility] Monocyte Abs 1.1(H) 0.3 - 0.9 x10(3)/mc L [facility] Eosinophils % 2.1 % [facility] Eosinophils Abs 0.2 0.0 - 0.4 x10(3)/mc L [facility] Basophils % 1.1 % [facility] Basophils Abs 0.1 0.0 - 0.1 x10(3)/mc L [facility] Immature Gran % 0.60 % [facility] Comment: Immature granulocytes(IG's)percentage and absolute count will include metamyelocytes, myelocytes, and promyelocytes. Blood smears from CBCs yielding IG's will be scanned manually for concordance. If this scan disagrees with the automated IG or if promyelocytes are noted, a manual differential will be performed. Osiris Gran Abs 0.06(H) 0.00 - 0.04 x10(3)/mc L [facility] Blood 09/23/2022 12:0 5 PM EDT 09/23/2022 12:25 PM EDT Narrative Resulting Agency Comment Spec In Lab Dylan Story MD HEMATOLOGY ORDERABLE S [facility] [place] [address] * (ABNORMAL) Hemogram (09/23/2022 12:05 PM EDT) WBC 9.4 4.0 - 9.5 x10(3)/[facility] RBC 3.77(L) 4.58 - 5.54 x10(6)/[facility] Hemoglobin 13.1(L) 13.7 - 16.5 g/dL [facility] Hematocrit 39.5(L) 40.5 - 48.5 % [facility] MCV 104.8(H) 82.9 - 93.1 fL [facility] MCH 34.7(H) 27.5 - 32.1 pg [facility] MCHC 33.2 32.0 - 35.7 g/dL [facility] Platelets 276 145 - 357 x10(3)/[facility]ORAT[facility] RDWSD 47.7(H) 36.0 - 45.0 [facility] RDWCV 12.3 11.4 - 13.8 % [facility] MPV 10.4 7.6 - 12.9 [facility] nRBC % Auto 0.0 % [facility] nRBC Abs Auto 0.000 0.000 - 0.000 x10(3)/[facility] Blood 09/23/2022 12:0 5 PM EDT 09/23/2022 12:25 PM EDT Narrative Resulting Agency Comment Spec In Lab Dylan Story MD HEMATOLOGY ORDERABLE S [facility] [place] [address] * (ABNORMAL) Basic Metabolic Panel (non-fasting) (09/23/2022 12:05 PM EDT) Glucose Lvl 106 65 - 199 mg/dL [facility] Comment:Diabetes: >=200 mg/d L plus symptoms BUN 8(L) 10 - 20 mg/dL [facility] Creatinine 0.58(L) 0.80 - 1.50 mg/dL [facility] Sodium 130(L) 135 - 145 mmol/L [facility] Potassium 5.0 3.5 - 5.0 mmol/L [facility] Comment: Please note: ??Patients with WBC >100,000 may have falsely elevated Potassium levels. ??For accurate Potassium quantification in these patients send serum separator tube (gold top) for subsequent determinations. ??Contact the Clinical Chemistry Laboratory if there are any questions. Chloride 95(L) 98 - 107 mmol/L [facility] CO2 25 22 - 31 mmol/L [facility] Anion Gap 10 5 - 15 mmol/L [facility] Calcium 9.3 8.5 - 10.5 mg/dL [facility] Estimated GFR 104 >=60 mL/min/1. 73 m?? [facility] Comment: This patient's estimated GFR [...] In Lab Dylan Story MD CHEMISTRY ORDERABLES [facility] [address] [place] [address] documented in this encounter Visit Diagnoses Diagnosis Complete heart block- Primary Atrioventricular block, complete Pacemaker at end of battery life Fitting and adjustment of cardiac pacemaker Pacemaker battery depletion Fitting and adjustment of cardiac pacemaker AV block Atrioventricular block, unspecified Pacemaker at end of battery life Fitting [...] Given 09/23/2022 2:11 PM EDT 400 mg laxmhm-lcdesqcl-ofnagll DR (Creon 24) 24,000-76,000 -120,000 unit per [...] 1411 (Given - Provider: Vini Lucero MD) busnsq-kiyufwgo-vhimpxz DR (Creon 24) 24,000-76,000 -120,000 unit per [...] Routine 0841 (Given - Provid er: Mendy Briscoe RN) sertraline (Zoloft) tablet 25 mg 25 [...] Maki RN) 0842 (Given - Provider: Mendy Briscoe RN) vancomycin (Vancocin) injection 1,000 mg (COMPLETED) 1,000 [...] Ashraf RN) 0842 (Given - Provider: Mendy Briscoe RN) benzonatate (Tessalon) capsule 100 mg 100 mg, [...] Routine documented in this encounter Care Teams Quebracho Tanner Relationship Specialty Start Date End Date Katia Stone PA [address] [place] [address] PCP - General General Internal Medicine 11/10/18 documented as of this encounter
--- OUTSIDE RECORDS SUMMARY | 2023-09-22 18:59 | XMS_ITS | Encounter Summary ---
Author Organization [facility] [place] [address] Care Team Providers Care Director Market Intelligence Name Role Phone Katia Stone Primary Care Provider [phone] Encounter Details Date Type Department Care Team (Late st Contact Info) Description 07/09/2021 1:35 PM EDT Ancillary Procedure [place] [phone] Nolan Beth MD [facility] [place] [address] Social History Tobacco Use Types Packs/Day Years [...] AM EDT Hospital Encounter Non-[place] [phone] Arrived documented as of this encounter Procedures Procedure Name Priority Date/Time Associated Diagnosis Comments FILM LIBRARY STORAGE ONLY CT CHEST ABDOMEN PELVIS Routine 07/09/2021 1:33 PM EDT documented in this encounter Results * Film Library- Storage Only CT Chest Abdomen Pelvis (07/09/2021 1:33 PM EDT) Narrative [facility] - 07/09/2021 1:33 PM EDT This exam is auto-finalizing. It's purpose is for storage only. Nolan Beth MD IMG FILM LIBRARY OR DERABLES [facility] [place], [place] documented in this encounter Visit Diagnoses Not on filedocumented in this encounter Care Teams Director Market Intelligence Relationship Specialty Start Date End Date Katia Stone PA [address] [place] [id number] PCP - General General Internal Medicine 11/10/18 documented as of this encounter
--- OUTSIDE RECORDS SUMMARY | 2023-09-22 18:59 | XMS_ITS | Encounter Summary ---
Author Organization [facility] Address [facility] [place] [address] Care Team Providers Care Director Of Athletics Name Role Phone Katia Stone Primary Care Provider Encounter Details Date Type Department Care Team (Latest Contact Info) Description 05/10/2023 10:00 AM EST - 05/10/2023 11:59 PM [facility] Hospital Encounter [place] [address] Discharge Disposition: Home Social History Tobacco Use [...] AM EDT Hospital Encounter Non-[place] [address] Arrived documented as of this encounter Procedures Procedure Name Priority Date/Time Associated Diagnosis Comments PRO PM INTERROGATION REMOTE UP TO 90 DAYS Routine 03/18/2023 6:20 AM EST documented in this encounter Results * Cardiac Device Check - Remote (03/18/2023 6:20 AM EST) Anatomical Region Laterality Modality Other 03/18/2023 6:20 AM EST Dylan Story MD IMPLANTABLE CARDIAC DEVICE documented in this encounter Visit Diagnoses Not on filedocumented in this encounter Care Teams Director Of Athletics Relationship Specialty Start Date End Date Katia Stone PA [address] [facility] [facility] [place] [facility] [place] [address] PCP - General General Internal Medicine 11/10/18 documented as of this encounter
--- OUTSIDE RECORDS SUMMARY | 2023-09-22 18:59 | XMS_ITS | Encounter Summary ---
[place] [address] Care Team Providers Care Director It Name Role Phone Katia Stone Primary Care Provider [phone] Encounter Details Date Type Department Care Team (Latest Contact Info) Description 05/15/2022 10:00 AM EDT - 05/15/2022 11:59 PM EDT Hospital Encounter [place] [phone] Discharge Disposition: Home Social History Tobacco Use Types Packs/Day Years Used Date Smoking Tobacco: Never Assessed Sex and Gender Information Value Date Recorded Sex Assigned at Not on file Gender Identity Not on file Sexual Orientation Not on file documented as of this encounter Medications at Time of Discharge Medication Sig Dispensed Refills Start Date End Date albuteroL 90 mcg/actuation HFA Aerosol Inhaler Inhale 2 puffs into the lungs 3 times daily as needed. 04/11/2022 traMADoL (Ultram) 50 mg tablet Take 50 mg by mouth 2 times daily. 04/08/2022 09/20/2022 predniSONE (Deltasone) 20 mg tablet Take 20 mg by mouth daily. 06/16/2017 09/20/2022 documented as of this encounter Plan of Treatment Upcoming Encounters Date Type Department Care Team (Late st Contact Info) Description 11/06/2023 10:00 AM EDT Hospital Encounter [place] [phone] Arrived documented as of this encounter Visit Diagnoses Not on filedocumented in this encounter Care Teams Director It Relationship Specialty Start Date End Date Katia Stone PA [address] [facility] [place] [place] [phone] PCP - General General Internal Medicine 11/10/18 documented as of this encounter
--- OUTSIDE RECORDS SUMMARY | 2023-09-22 18:59 | XMS_ITS | Encounter Summary ---
Author Organization [facility] Address [facility] [place] [address] Care Team Providers Care Health Insurance Agent Name Role Phone Katia Stone Primary Care Provider [phone] Encounter Details Date Type Department Care Team (Latest Contact Info) Description 08/13/2022 10:00 AM EDT - 08/13/2022 11:59 PM EDT Hospital Encounter [place] [address] Discharge Disposition: Home Social History Tobacco Use [...] mouth 2 times daily as needed. 05/23/2022 traMADoL (Ultram) 50 mg tablet Take 50 mg by mouth 2 times daily. 04/08/2022 09/20/2022 predniSONE (Deltasone) 20 mg tablet Take 20 mg by mouth daily. 06/16/2017 09/20/2022 documented as of this encounter Plan of Treatment Upcoming Encounters Date Type Department Care Team (Late st Contact Info) Description 11/06/2023 10:00 AM EDT Hospital Encounter [place] [address] Arrived documented as of this encounter Procedures Procedure Name Priority Date/Time Associated Diagnosis Comments PRO PM INTERROGATION REMOTE UP TO 90 DAYS Routine 06/28/2022 11:23 AM EDT documented in this encounter Results * Cardiac Device Check - Remote (06/28/2022 11:23 AM EDT) Anatomical Region Laterality Modality Other 06/28/2022 11:2 3 AM EDT Dylan Story MD IMPLANTABLE CARDIAC DEVICE documented in this encounter Visit Diagnoses Not on filedocumented in this encounter Care Teams Health Insurance Agent Relationship Specialty Start Date End Date Katia Stone PA [address] [place] [address] PCP - General General Internal Medicine 11/10/18 documented as of this encounter
--- OUTSIDE RECORDS SUMMARY | 2023-09-22 18:59 | XMS_ITS | Encounter Summary ---
Author Organization [facility] [place] [address] Care Team Providers Care Banking Services Officer Name Role Phone Katia Stone Primary Care Provider [phone] Encounter Details Date Type Department Care Team (Latest Contact Info) Description 02/09/2023 10:00 AM EST - 02/09/2023 11:59 PM [facility] Hospital Encounter Non-Invasive [place] [address] Discharge Disposition: Home Social History Tobacco Use [...] AM EDT Hospital Encounter Non-Invasive [place] [address] Arrived documented as of this encounter Procedures Procedure Name Priority Date/Time Associated Diagnosis Comments PRO PM INTERROGATION REMOTE UP TO 90 DAYS Routine 12/18/2022 6:21 AM EDT documented in this encounter Results * Cardiac Device Check - Remote (12/18/2022 6:21 AM EDT) Anatomical Region Laterality Modality Other 12/18/2022 6:21 AM EDT Dylan Story MD IMPLANTABLE CARDIAC DEVICE documented in this encounter Visit Diagnoses Not on filedocumented in this encounter Care Teams Banking Services Officer Relationship Specialty Start Date End Date Katia Stone PA [address] [place] [phone] PCP - General General Internal Medicine 11/10/18 documented as of this encounter
--- OUTSIDE RECORDS SUMMARY | 2023-09-22 18:59 | XMS_ITS | Encounter Summary ---
Author Organization [facility] [place] [address] Care Team Providers Care Knockup Worker Name Role Phone Katia Stone Primary Care Provider [phone] Encounter Details Date Type Department Care Team (Late st Contact Info) Description 02/13/2022 Orders Only Cardiology at [address] [phone] Dylan Story MD [facility] [place] [address] Social History Tobacco Use Types Packs/Day Years [...] AM EDT Hospital Encounter [place] [phone] Arrived documented as of this encounter Procedures Procedure Name Priority Date/Time Associated Diagnosis Comments CARDIAC DEVICE CHECK - REMOTE Routine 02/13/2022 6:24 AM EST documented in this encounter Results * Cardiac Device Check - Remote (02/13/2022 6:24 AM EST) Anatomical Region Laterality Modality Other 02/13/2022 6:24 AM EST Dylan Story MD IMPLANTABLE CARDIAC DEVICE documented in this encounter Visit Diagnoses Not on filedocumented in this encounter Care Teams Knockup Worker Relationship Specialty Start Date End Date Katia Stone PA [address] [facility] [place] [phone] PCP - General General Internal Medicine 11/10/18 documented as of this encounter
--- OUTSIDE RECORDS SUMMARY | 2023-09-22 18:59 | XMS_ITS | Encounter Summary ---
Author Organization [facility] [place] [address] Care Team Providers Care Gold Burnisher Name Role Phone Katia Stone Primary Care Provider [phone] Reason for Referral * Diagnostic Test (Routine) - Closed Specialty Diagnoses / Procedures Referred By Contac t Referred To Contact Radiology Diagnoses Abdominal visceral abscess Procedures CT Guided Drain Peritoneal Virginia Price [address] [place] [address] [facility] [place] [address] Referral ID Status Reason Start Date Expiration Date V isits Requested Visits Authorized [id number] Closed Specialty Service Requested 07/09/2021 01/09/2023 1 1 Reason for Visit * Diagnostic Test (Routine) - Closed Specialty Diagnoses / Procedures Referred By Contac t Referred To Contact Radiology Diagnoses Abdominal visceral abscess Procedures CT Guided Drain Peritoneal Virginia Price [address] [place] [address] [facility] [place] [address] Referral ID Status Reason Start Date Expiration Date V isits Requested Visits Authorized [id number] Closed Specialty Service Requested 07/09/2021 01/09/2023 1 1 Encounter Details Date Type Department Care Team (Latest Contact Info) Description 07/10/2021 9:19 AM EDT - 07/10/2021 11:59 PM EDT Hospital [place] [address] Virginia Price, DO [address] [place] [address] Abdominal visceral abscess (Primary Dx) Discharge Disposition: Home Social History Tobacco Use [...] - documented in this encounter Discharge Instructions * Discharge Instructions* Marilyn Duncan RN - 07/10/2021 11:44 AM EDT Images from the original note were not included. INTERVENTIONAL RADIOLOGY DRAIN CARE INSTRUCTIONS Drains help to keep fluid from collecting by removing the extra blood and fluid from under the skinor from an abscess within the body. A drain is temporary. It stays in place until the drainage has slowed down or stopped. Your Provider will decide when each drain should be removed. This is usuallyafter each drain has 30cc or less in [...] not attached to your clothing, it may pull out from under your skin. Also, a drain usually feels more comfortable when it???s attached. To care for the drain at home, you will have [...] may teach a family member if they arewilling. The dressing needs to only be change once a week provided there is no leakage around the tube. What problems may I have with my drain? The bulb is not compressed- The bulb may not be squeezed tightly enough, the plug may not be closedsecurely, or the tube has slipped out a bit and is leaking. Follow the instructions on how to emptythe drain. If the bulb remains expanded, then notify your doctor or nurse during business hours. No drainage or sudden decrease in amount of drainage- This may be due to a plug in the drain. Please notify your doctor or nurse during business hours. The tube accidentally falls out- If this happens, place a dry gauze dressing over the drain site and notify your doctor or nurse during business hours. Increased redness, swelling, or heat around the tube insertion site- This may be a sign of infection. Take your temperature: if it is higher than 101F or 38.8C, call your doctor or nurse immediately.Otherwise, notify your doctor or nurse during business [...] twice a day or any time the bulbis full. Record the total for 24 hours for each drain you have. 10. If you have more than one drain, remember to record the drainage from each drain separately. 11. To prevent infection, do not let the stopper or top of the bottle touch the measuring cup or any other surface. Use one hand to squeeze all of the air from the drain. With the drain still squeezed, use your other hand to replace the top. This creates the suction necessary to remove the fluids from your body. Pin the drain back on your clothing to avoid pulling it out accidently. Wash your hands again. Remember to wash your hands before and after the procedure to reduce the risk of infection. Flushing the Drain: Your doctor may want the drain to be flushed once or twice daily to keep the fluid from plugging the drain. Flush the drain with 3-5 cc daily with the syringes supplied to you. FORWARD FLUSH ONLY, DO NOT ASPIRATE BACK. When to call the Interventional Radiology Department: Please call with any questions or concerns. If it is during regular office hours, please call [phone]. If it is after regular office hours, or on weekends or holidays, please call [phone] and ask to speak to the Medical Microbiologist title i instructional assistant for Interventional Radiology. XX You have received medication during your procedure to help lessen anxiety and keep you comfortable. These medications affect judgement and reaction time. We recommend that you do not drive, operate equipment, sign any important documents, or smoke unattended [...] in 24 hours) documented in this encounter Medications at Time of Discharge Medication Sig Dispensed Refills Start Date End Date predniSONE (Deltasone) 20 mg tablet Take 20 mg by mouth daily. 06/16/2017 09/20/2022 documented as of this encounter Progress Notes * Pily Porter RN - 07/10/2021 1:11 PM EDT Pt ready for discharge back to transfer hospital. Report called to receiving nurse. Report given totransport service. * Marilyn Duncan RN - 07/10/2021 11:06 AM EDT [facility] NUR[facility] DATABASE Name: DAVID FARFAN Date of : 1950 AGE: 70 y.o. Address: [place] [address] (home) Mobile: No relevant phone numbers on file. Referring Provider: Virginia Price REASON FOR VISIT: Order Questions Answers Where will study be performed? [facility] Radiology [120] Is the patient on anticoagulant / antiplatelet therapy ? No Does the patient have any pertinent outside imaging? Yes Reason for exam and clinical history: CT guided drainag plmt of abdominal abscess. Possible drainage of left chest fluid collection. Clinical information / castillo questions for radiologist: Outside order- in media tab Plan Planned procedure: CT-guided RUQ and left hemithoracic drain placements (07/09/21 152) Sedation: Moderate (Conscious sedation) (07/09/21 152) Prophylactic antibiotic : None (07/09/21 152) Contrast: No contrast (07/09/21 152) Additional medications for procedure: Lidocaine (07/09/21 152) Position: Supine (07/09/21 152) Consent: Pending (07/09/211527) Medications to discontinue (and days held): None (07/09/211527) Cytopathology presence needed: No (07/09/211527) Not on File Pertinent PMH: There is [...] Results: documented in this encounter H&P Notes * Vick Boss MD - 07/10/2021 10:00 AM EDT INTERVENTIONAL RADIOLOGY FOCUSED H&P: Procedure: Planned procedure: CT-guided RUQ and left hemithoracic drain placements Update to H&P: The patient's history and physical exam have been reviewed and completed. There has been NO interval change from that of the pre-procedural note done within the last 30 days. There is NO change in the procedural plan. Physical Exam: Cardiovascular: Regular, Normal Pulmonary: diminished BS on left Abdomen: RUQ tenderness Vascular: NA Meds: Current medications reviewed. No medications held. Labs: No new relevant labs. The planned procedure (and sedation plan if appropriate) , its benefits and risks, and alternativeswere discussed with the patient. The patient consented [...] Questions Answers Where will study be performed? [facility] Radiology [120] Is the patient on anticoagulant / antiplatelet therapy ? No Does the patient have any pertinent outside imaging? Yes Reason for exam and clinical history: CT guided drainag plmt of abdominal abscess. Possible drainage of left chest fluid collection. Clinical information / [...] found to have new leukocytosis which prompted evaluation by CT. This demonstrated interval progression of collection in the gallbladder fossa aswell as persistent left pleural collection. Of note, [...] collection on CT following cholecystectomy presenting to Interventional Radiology for drainage of RUQ and [...] the day of procedure) 07/09/2021 GIRISH Pearce * Seng Urbano PA - 07/09/2021 3:33 PM [...] Questions Answers Where will study be performed? [facility] Radiology [120] Is the patient on anticoagulant / antiplatelet therapy ? No Does the patient have any pertinent outside imaging? Yes Reason for exam and clinical history: CT guided drainag plmt of abdominal abscess. Possible drainage of left chest fluid collection. Clinical information / [...] found to have new leukocytosis which prompted evaluation by CT. This demonstrated interval progression of collection in the gallbladder fossa aswell as persistent left pleural collection. Of note, [...] collection on CT following cholecystectomy presenting to Interventional Radiology for drainage of RUQ and [...] Pearce documented in this encounter Miscellaneous Notes * Brief Op Note - Vick Boss MD [...] culture Complications: No immediate Plan/Disposition: Return to [facility] GB fossa drain to bulb [...] AM EDT Hospital Encounter Non-In[place] [id number] Arrived documented as of this encounter Procedures Procedure Name Priority Date/Time Associated Diagnosis Comments CT GUIDED DRAIN CHEST TUBE/PLEURAL DRAIN Routine 07/10/2021 12:[address] PERITONEAL DRAINAGE Routine 07/10/2021 12:19 PM EDT Abdominal visceral abscess ANAEROBIC CULTURE Routine 07/10/2021 11: 45 AM EDT HC CONC. FOR INFECTIOUS AGENTS Routine 07/10/2021 11:45 AM EDT BODY FLUID CULTURE, AEROBIC Routine 07/10/2021 11:45 AM EDT ANAEROBIC CULTURE Routine 07/10/2021 11: 20 AM EDT HC GRAM STAIN FOR BACTERIA Routine 07/10/2021 11:20 AM EDT BODY FLUID CULTURE, AEROBIC Routine 07/10/2021 11:20 AM EDT documented in this encounter Results * CT Guided Drain Peritoneal (07/10/2021 12:19 PM EDT) Anatomical Region Laterality Modality Computed Tomogra phy Impressions 07/11/2021 10:21 AM EDT 1. ??Percutaneous placement of a 10 Turkish drainage catheter into gallbladder fossa abscess/biloma, yielding 120 mL of cloudy brown fluid. 2. ??Left-sided 10 Turkish chest tube placement, yielding 30 mL of cloudy brown. Plan: 1. ??To IR recovery then transfer back to [facility]. 2. ??Awaiting return call from requesting provider to discuss local follow-up of drains versus return to IR for drain follow-up. PROCEDURE SUMMARY: - Intraperitoneal drainage catheter placement under CT guidance - Percutaneous pleural drainage with insertion of indwelling catheter under CT guidance - Additional procedure(s): None PROCEDURE DETAILS: Pre-procedure Consent: Informed consent for the procedure including risks, benefits and alternatives was obtained and time-out was performed prior to the procedure. Preparation: The site was prepared and draped using maximal sterile barrier technique including cutaneous antisepsis. Anesthesia/sedation Level of anesthesia/sedation: Moderate sedation (conscious sedation) Anesthesia/sedation administered by: Independent trained observer under attending supervision with continuous monitoring of the patients level of consciousness and physiologic status Total intra-service sedation time (minutes): See electronic medical record Drainage catheter placement The patient was positioned supine. Initial imaging was performed. Local anesthesia was administered. The fluid collection was accessed using an access needle followed by wire insertion and serial dilation and a drainage catheter was placed. Position of the drainage catheter within the fluid collection was confirmed. - Initial imaging findings: Air-fluid containing collection within the gallbladder fossa - Drainage catheter placed: Multipurpose drainage catheter - External catheter securement: Non-absorbable suture and adhesive anchoring device - Post-drainage imaging findings: Near-complete drainage of the fluid collection Chest tube placement The patient was positioned right lateral decubitus oblique. Initial imaging was performed. Local anesthesia was administered. The pleural space was accessed using an access needle followed by wire insertion and serial dilation and a drainage catheter was placed. Position of the drainage catheter within the pleural space was confirmed. - Initial imaging findings: Moderate to large volume loculated LEFT pleural fluid - Drainage catheter placed: Multipurpose drainage catheter - External catheter securement: Non-absorbable suture - Post-drainage imaging findings: Other-drain within the target fluid collection. - Additional findings: None Contrast Contrast agent: None Contrast volume (mL): [address] dose length product (mGy-cm): 1969 Additional Details Additional description of procedure: None Equipment details: None Specimens removed: Aspirated fluid was sent for analysis. Estimated blood loss (mL): Less than 10 Standardized report: [email or web address] Attestation Signer name: Vick Boss MD I attest that I performed the procedure. I reviewed the stored images and agree with the report as written. Sedation attestation: I was present during the intra-service time as documented by IR nurse. Thank you for letting us participate in the care of this patient. ??If you are a health care provider and have any questions regarding this report, please contact the number below. ??For patients who have questions please contact the health tire care manager that requested your imaging first. ? Electronically signed by: Vick Boss MD, [facility] ([phone]), at 07/11/2021 10:21 AM Narrative 07/11/2021 10:21 AM EDT PROCEDURE: Drainage catheter placement Procedural Personnel Attending physician(s): Vick Boss MD Fellow physician(s): None Resident physician(s): None Advanced practice provider(s): None Pre-procedure diagnosis: Postoperative fluid collection, leukocytosis, loculated pleural effusion Post-procedure diagnosis: Same Indication: Leukocytosis with fluid collection Additional clinical history: None Complications: No immediate complications. Procedure Note Vick Boss MD - 07/11/2021 PROCEDURE: Drainage catheter placement Procedural Personnel Attending physician(s): Vick Boss MD Fellow physician(s): None Resident physician(s): None Advanced practice provider(s): None Pre-procedure diagnosis: Postoperative fluid collection, leukocytosis,loculated pleural effusion Post-procedure diagnosis: Same Indication: Leukocytosis with fluid collection Additional clinical history: None Complications: No immediate complications. IMPRESSION 1. Percutaneous placement of a 10 Turkish drainage catheter intogallbladder fossa abscess/biloma, yielding 120 mL of cloudy brown fluid. 2. Left-sided 10 Turkish chest tube placement, yielding 30 mL of cloudybrown. Plan: 1. To IR recovery then transfer back to [facility]. 2. Awaiting return call from requesting provider to discuss localfollow-up of drains versus return to IR for drain follow-up. PROCEDURE SUMMARY: - Intraperitoneal drainage catheter placement under CT guidance - Percutaneous pleural drainage with insertion of indwelling catheterunder CT guidance - Additional procedure(s): None PROCEDURE DETAILS: Pre-procedure Consent: Informed consent for the procedure including risks, benefitsand alternatives was obtained and time-out was performed prior to theprocedure. Preparation: The site was prepared and draped using maximal sterilebarrier technique including cutaneous antisepsis. Anesthesia/sedation Level of anesthesia/sedation: Moderate sedation (conscious sedation) Anesthesia/sedation administered by: Independent trained observer under attending supervision with continuous monitoring of the patients levelof consciousness and physiologic status Total intra-service sedation time (minutes): See electronic medicalrecord Drainage catheter placement The patient was positioned supine. Initial imaging was performed. Local anesthesia was administered. The fluid collection was accessed using anaccess needle followed by wire insertion and serial dilation and a drainagecatheter was placed. Position of the drainage catheter within the fluid collectionwas confirmed. - Initial imaging findings: Air-fluid containing collection within the gallbladder fossa - Drainage catheter placed: Multipurpose drainage catheter - External catheter securement: Non-absorbable suture and adhesiveanchoring device - Post-drainage imaging findings: Near-complete drainage of the fluidcollection Chest tube placement The patient was positioned right lateral decubitus oblique. Initialimaging was performed. Local anesthesia was administered. The pleural space wasaccessed using an access needle followed by wire insertion and serial dilation solis drainage catheter was placed. Position of the drainage catheter withinthe pleural space was confirmed. - Initial imaging findings: Moderate to large volume loculated LEFTpleural fluid - Drainage catheter placed: Multipurpose drainage catheter - External catheter securement: Non-absorbable suture - Post-drainage imaging findings: Other-drain within the target fluid collection. - Additional findings: None Contrast Contrast agent: None Contrast volume (mL): [address] dose length product (mGy-cm): 1969 Additional Details Additional description of procedure: None Equipment details: None Specimens removed: Aspirated fluid was sent for analysis. Estimated blood loss (mL): Less than 10 Standardized report: [email or web address] Attestation Signer name: Vick Boss MD I attest that I performed the procedure. I reviewed the stored images andagree with the report as written. Sedation attestation: I was present during the intra-service time asdocumented by IR nurse. Thank you for letting us participate in the care of this patient. If youare a health care provider and have any questions regarding this report,please contact the number below. For patients who have questions please contactthe health tire care manager that requested your imaging first. Electronically signed by: Vick Boss MD, [facility]([phone]), at 07/11/2021 10:21 AM Virginia Price DO IMG CT ORDERABLES * CT Guided Drain Chest Tube/Pleural Drain (07/10/2021 12:19 PM EDT) Anatomical Region Laterality Modality Computed Tomogra phy Impressions 07/11/2021 10:21 AM EDT 1. ??Percutaneous placement of a 10 Turkish drainage catheter into gallbladder fossa abscess/biloma, yielding 120 mL of cloudy brown fluid. 2. ??Left-sided 10 Turkish chest tube placement, yielding 30 mL of cloudy brown. Plan: 1. ??To IR recovery then transfer back to [facility]. 2. ??Awaiting return call from requesting provider to discuss local follow-up of drains versus return to IR for drain follow-up. PROCEDURE SUMMARY: - Intraperitoneal drainage catheter placement under CT guidance - Percutaneous pleural drainage with insertion of indwelling catheter under CT guidance - Additional procedure(s): None PROCEDURE DETAILS: Pre-procedure Consent: Informed consent for the procedure including risks, benefits and alternatives was obtained and time-out was performed prior to the procedure. Preparation: The site was prepared and draped using maximal sterile barrier technique including cutaneous antisepsis. Anesthesia/sedation Level of anesthesia/sedation: Moderate sedation (conscious sedation) Anesthesia/sedation administered by: Independent trained observer under attending supervision with continuous monitoring of the patients level of consciousness and physiologic status Total intra-service sedation time (minutes): See electronic medical record Drainage catheter placement The patient was positioned supine. Initial imaging was performed. Local anesthesia was administered. The fluid collection was accessed using an access needle followed by wire insertion and serial dilation and a drainage catheter was placed. Position of the drainage catheter within the fluid collection was confirmed. - Initial imaging findings: Air-fluid containing collection within the gallbladder fossa - Drainage catheter placed: Multipurpose drainage catheter - External catheter securement: Non-absorbable suture and adhesive anchoring device - Post-drainage imaging findings: Near-complete drainage of the fluid collection Chest tube placement The patient was positioned right lateral decubitus oblique. Initial imaging was performed. Local anesthesia was administered. The pleural space was accessed using an access needle followed by wire insertion and serial dilation and a drainage catheter was placed. Position of the drainage catheter within the pleural space was confirmed. - Initial imaging findings: Moderate to large volume loculated LEFT pleural fluid - Drainage catheter placed: Multipurpose drainage catheter - External catheter securement: Non-absorbable suture - Post-drainage imaging findings: Other-drain within the target fluid collection. - Additional findings: None Contrast Contrast agent: None Contrast volume (mL): [address] dose length product (mGy-cm): 1969 Additional Details Additional description of procedure: None Equipment details: None Specimens removed: Aspirated fluid was sent for analysis. Estimated blood loss (mL): Less than 10 Standardized report: [email or web address] Attestation Signer name: Vick Boss MD I attest that I performed the procedure. I reviewed the stored images and agree with the report as written. Sedation attestation: I was present during the intra-service time as documented by IR nurse. Thank you for letting us participate in the care of this patient. ??If you are a health care provider and have any questions regarding this report, please contact the number below. ??For patients who have questions please contact the health tire care manager that requested your imaging first. ? Electronically signed by: Vick Boss MD, [facility] ([phone]), at 07/11/2021 10:21 AM Narrative 07/11/2021 10:21 AM EDT PROCEDURE: Drainage catheter placement Procedural Personnel Attending physician(s): Vick Boss MD Fellow physician(s): None Resident physician(s): None Advanced practice provider(s): None Pre-procedure diagnosis: Postoperative fluid collection, leukocytosis, loculated pleural effusion Post-procedure diagnosis: Same Indication: Leukocytosis with fluid collection Additional clinical history: None Complications: No immediate complications. Procedure Note Vick Boss MD - 07/11/2021 PROCEDURE: Drainage catheter placement Procedural Personnel Attending physician(s): Vick Boss MD Fellow physician(s): None Resident physician(s): None Advanced practice provider(s): None Pre-procedure diagnosis: Postoperative fluid collection, leukocytosis,loculated pleural effusion Post-procedure diagnosis: Same Indication: Leukocytosis with fluid collection Additional clinical history: None Complications: No immediate complications. IMPRESSION 1. Percutaneous placement of a 10 Turkish drainage catheter intogallbladder fossa abscess/biloma, yielding 120 mL of cloudy brown fluid. 2. Left-sided 10 Turkish chest tube placement, yielding 30 mL of cloudybrown. Plan: 1. To recovery then transfer back to [facility]. 2. Awaiting return call from requesting provider to discuss localfollow-up of drains versus return to IR for drain follow-up. PROCEDURE SUMMARY: - Intraperitoneal drainage catheter placement under CT guidance - Percutaneous pleural drainage with insertion of indwelling catheterunder CT guidance - Additional procedure(s): None PROCEDURE DETAILS: Pre-procedure Consent: Informed consent for the procedure including risks, benefitsand alternatives was obtained and time-out was performed prior to theprocedure. Preparation: The site was prepared and draped using maximal sterilebarrier technique including cutaneous antisepsis. Anesthesia/sedation Level of anesthesia/sedation: Moderate sedation (conscious sedation) Anesthesia/sedation administered by: Independent trained observer under attending supervision with continuous monitoring of the patients levelof consciousness and physiologic status Total intra-service sedation time (minutes): See electronic medicalrecord Drainage catheter placement The patient was positioned supine. Initial imaging was performed. Local anesthesia was administered. The fluid collection was accessed using anaccess needle followed by wire insertion and serial dilation and a drainagecatheter was placed. Position of the drainage catheter within the fluid collectionwas confirmed. - Initial imaging findings: Air-fluid containing collection within the gallbladder fossa - Drainage catheter placed: Multipurpose drainage catheter - External catheter securement: Non-absorbable suture and adhesiveanchoring device - Post-drainage imaging findings: Near-complete drainage of the fluidcollection Chest tube placement The patient was positioned right lateral decubitus oblique. Initialimaging was performed. Local anesthesia was administered. The pleural space wasaccessed using an access needle followed by wire insertion and serial dilation solis drainage catheter was placed. Position of the drainage catheter withinthe pleural space was confirmed. - Initial imaging findings: Moderate to large volume loculated LEFTpleural fluid - Drainage catheter placed: Multipurpose drainage catheter - External catheter securement: Non-absorbable suture - Post-drainage imaging findings: Other-drain within the target fluid collection. - Additional findings: None Contrast Contrast agent: None Contrast volume (mL): [address] dose length product (mGy-cm): 1969 Additional Details Additional description of procedure: None Equipment details: None Specimens removed: Aspirated fluid was sent for analysis. Estimated blood loss (mL): Less than 10 Standardized report: [id number] Attestation Signer name: Vick Boss MD I attest that I performed the procedure. I reviewed the stored images andagree with the report as written. Sedation attestation: I was present during the intra-service time asdocumented by IR nurse. Thank you for letting us participate in the care of this patient. If youare a health care provider and have any questions regarding this report,please contact the number below. For patients who have questions please contactthe health tire care manager that requested your imaging first. Electronically signed by: Vick Boss MD, [facility]([phone]), at 07/11/2021 10:21 AM Virginia Price DO IMG CT ORDERABLES * Anaerobic Culture (07/10/2021 11:45 AM EDT) Anaerobic Culture No anaerobic organisms isolated [facility] Fluid 07/10/2021 11:4 5 AM EDT 07/10/2021 12:24 PM EDT Comment:Left chest tube plac ement. Narrative Resulting Agency Comment Spec In Lab Vick Boss MD MICROBIOLOGY - GEN ERAL ORDERABLES Performing Organization Address City/[facility]/ZIP Co de Phone Number [facility] [place] [address] * Body Fluid Culture, Aerobic (07/10/2021 11:45 AM EDT) Body Fluid Culture No growth [facility] Gram Stain Cytocentrifuge Gram Stain performed No Neutrophils seen. No microorganisms seen. [facility] Fluid 07/10/2021 11:4 5 AM EDT 07/10/2021 12:24 PM EDT Comment:Left chest tube plac ement. Narrative Resulting Agency Comment Spec In Lab Vick Boss MD MICROBIOLOGY - GEN ERAL ORDERABLES Performing Organization Address City/[facility]/ZIP Co de Phone Number [facility] [place] [address] * Anaerobic Culture (07/10/2021 11:20 AM EDT) Anaerobic Culture No anaerobic organisms isolated [facility] Abdominal Fluid 07/10/2021 1 1:20 AM EDT 07/10/2021 12:25 PM EDT Comment:70 y.o. male with le ukocytosis and collection on CT following cholecystectomy presenting to Interventional Radiology for drainage Narrative Resulting Agency Comment Spec In Lab Vick Boss MD MICROBIOLOGY - GEN ERAL ORDERABLES [facility] [place] [address] * (ABNORMAL) Body Fluid Culture, Aerobic (07/10/2021 11:20 AM EDT) Body Fluid Culture Few Escherichia coli(A) [facility] Gram Stain Cytocentrifuge Gram Stain performed Neutrophils seen Few Gram Negative Rods (A) [facility] Organism Escherichia coli(A) [facility] Abdominal Fluid 07/10/2021 1 1:20 AM EDT 07/10/2021 12:25 PM EDT Comment:70 y.o. male with le ukocytosis and collection on CT following cholecystectomy presenting to Interventional Radiology for drainage Narrative Resulting Agency Comment Spec In Lab Organism Antibiotic Method Susceptibility Escherichia coli Amikacin VITEK 2 METHOD Sensitive Escherichia coli Ampicillin + Sulbactam VITEK 2 METHOD Sensitive Escherichia coli Aztreonam VITEK 2 METHOD Sensitive Escherichia coli Cefepime VITEK 2 METHOD <=1: Sensitive Escherichia coli Ceftazidime VITEK 2 METHOD <=1: Sensitive Escherichia coli Ceftriaxone VITEK 2 METHOD Sensitive Escherichia coli Ertapenem VITEK 2 METHOD Sensitive Escherichia coli Gentamicin VITEK 2 METHOD Sensitive Escherichia coli Levofloxacin VITEK 2 METHOD Sensitive Comment: Levofloxacin and Ciprofloxacin may not adequately treat infections in critically ill patients even when isolates test susceptible in the laboratory. Contact Infectious Disease before using in critically ill patients. Escherichia coli Meropenem VITEK 2 METHOD <=0.25: Sensitive Escherichia coli Piperacillin/Tazobactam VITEK 2 METHO D <=4: Sensitive Escherichia coli Tetracycline VITEK 2 METHOD Sensitive Escherichia coli Tigecycline VITEK 2 METHOD Sensitive Escherichia coli Tobramycin VITEK 2 METHOD Sensitive Escherichia coli Trimethoprim/Sulfa VITEK 2 METHOD Sensitive Vick Boss MD MICROBIOLOGY - GEN ERAL ORDERABLES [facility] [place] [address] documented in this encounter Visit Diagnoses Diagnosis Abdominal visceral abscess- Primary Cellulitis and abscess of other specified site documented in this encounter Administered Medications Inactive Administered Medications - up to 3 most recent administrations Medication Order MAR Action Action Date Dose Rate Site fentaNYL (pf) (50 mcg/mL) multi-dose injection 25-50 mcg 25-50 mcg, Intravenous, [...] Angio/IR (Day of Procedure), Routine Given 07/10/2021 11:55 AM EDT 25 mcg Given 07/10/2021 11:45 AM EDT 25 mcg Given 07/10/2021 11:39 AM EDT 25 mcg lidocaine (Xylocaine) 1% (10 mg/mL) injection 10 mg 10 mg, Subcutaneous, ONCE, 1 dose, On Fri07/10/21 at 1030, For use in Interventional Radiology (IR) only for procedure with direct provider supervision and verbal order., Angio/IR (Day of Procedure), Routine Given 07/10/2021 11:2 0 AM EDT 10 mg midazolam (pf) (Versed) (1 mg/mL) multi-dose injection 0.5-1 mg 0.5-1 mg, Intravenous, EVERY [...] Procedure), Routine Given 07/10/2021 11:45 AM EDT 0.5 mg Given 07/10/2021 11:39 AM EDT 0.5 mg Given 07/10/2021 11:17 AM EDT 0.5 mg documented in this encounter Care Teams Gold Burnisher Relationship Specialty Start Date End Date Katia Stone PA [address] [place] [phone] PCP - General General Internal Medicine 11/10/18 documented as of this encounter
--- OUTSIDE RECORDS SUMMARY | 2023-09-22 18:59 | XMS_ITS | Encounter Summary ---
Author Organization [facility] Address [facility] [place] [address] Care Team Providers Care Toy Painter Name Role Phone Katia Stone Primary Care Provider [phone] Encounter Details Date Type Department Care Team (Late st Contact Info) Description 04/04/2022 Notes Only Cardiology at [address] [phone] Humberto Ashraf PA [facility] [place] [address] Social History Tobacco Use Types Packs/Day Years Used Date Smoking Tobacco: Never Assessed Sex and Gender Information Value Date Recorded Sex Assigned at Not on file Gender Identity Not on file Sexual Orientation Not on file documented as of this encounter Progress Notes * Humberto Ashraf PA - 04/04/2022 12:01 PM EST Cardiac Electrophysiology Cardiac Implantable Electronic Device Remote Monitoring Interpretation Reason for alert: Acutely elevated RA lead pacing threshold; afib/flutter Transmission Date: 03/28/2022 Device Cheesemaking Laborer and Type: [employer] L111 Battery Status: estimated longevity 6 months Atrial lead status: normal sensing and impedance; elevated pacing threshold(now 4.0V @ 0.4ms); known partial fx Right ventricular lead status: good Left ventricular lead status: n/a Pacin % Atrial pacing 100 % Ventricular pacing Events/Arrhythmias noted since last reset: New acutely elevated RA pacing threshold Impression: 71yo man with dual lead [employer] 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 He is followed at [facility] and has reported known atrial lead dysfunction as assessed by Dr. Story. Now as he approaches [facility], he should be evaluated for lead replacement, +/-extraction of the fractured lead. I will request follow up to be scheduled. GIRISH Marin, MPAS, DFAAPA documented in this encounter Plan of Treatment Upcoming Encounters Date Type Department Care Team (Late st Contact Info) Description 11/06/2023 10:00 AM EDT Hospital Encounter Non-Invasive [place] [address] Arrived documented as of this encounter Visit Diagnoses Not on filedocumented in this encounter Care Teams Toy Painter Relationship Specialty Start Date End Date Katia Stone PA [address] [place] [phone] PCP - General General Internal Medicine 11/10/18 documented as of this encounter
--- OUTSIDE RECORDS SUMMARY | 2023-09-22 18:59 | XMS_ITS | Encounter Summary ---
Author Organization [facility] [place] [address] Care Team Providers Care Flight Engineer Performance Qualified Name Role Phone Katia Stone Primary Care Provider Encounter Details Date Type Department Care Team (Latest Contact Info) Description 11/14/2021 - 11/14/2021 11:59 PM EDT Hospital Encounter [place] [phone] Radha Hammond MD [facility] [place] [address] CHB (complete heart block) Discharge Disposition: Home [...] AM EDT Hospital Encounter Non[place] [phone] Arrived documented as of this encounter Procedures Procedure Name Priority Date/Time Associated Diagnosis Comments PCM INTERROGATION 3 MONTH Routine 11/19/2021 2:52 PM EDT CHB (complete heart block) documented in this encounter Results * PCM INTERROGATION 3 MONTH (11/19/2021 2:52 PM EDT) Anatomical Region Laterality Modality Other Narrative 11/22/2021 10:04 AM EDT Outpatient remote interrogation report: See full report as a linked pdf document Date of transmission: 11/14/21 Device barbering teacher: BSC Device type: DC PM Presenting rhythm: apvp AP 56% DIESEL POWERPLANT SUPERVISOR 100% - no LV functional assessment in [...] complete documented in this encounter Care Teams Flight Engineer Performance Qualified Relationship Specialty Start Date End Date Katia Stone PA [address] [place] [address] PCP - General General Internal Medicine 11/10/18 documented as of this encounter
[2023-09-22 19:15] LABS: ALT 17 U/L (16-63); AST 16 U/L (15-37); Albumin 2.8 g/dL (3.4-5.0); Alkaline Phosphatase 109 U/L (46-116); Anion Gap 6.9 mmol/L (3-11); BUN 8 mg/dL (7-18); Bilirubin, Total 0.22 mg/dL (0.2-1.0); CO2 32.1 mmol/L (21.0-32.0); CREATININE 0.7 mg/dL (0.70-1.30); Calcium 8.5 mg/dL (8.5-10.1); Chloride 97 mmol/L (98-107); Glucose 100 mg/dL (74-106); Magnesium 1.6 mg/dL (1.8-2.4); Potassium 4.1 mmol/L (3.5-5.1); Sodium 136 mmol/L (136-145)
== END 2023-09-22 18:54 | disposition home or self-care (01) ==
LOC: LBN 18:53
PROVIDERS: PCP Legal Medicine; Visit Provider Nurse Practitioner Gerontology
DX: E83.42 Hypomagnesemia (principal); E87.1 Hypo-osmolality and hyponatremia; I25.10 Atherosclerotic heart disease of native coronary artery without angina pectoris; J44.1 Chronic obstructive pulmonary disease with (acute) exacerbation
CPT/HCPCS: 80053; 83735

== ENCOUNTER 2023-10-13 22:22 | Outpatient (REF) | payer MEDICARE, MEDICAID, SELFPAY ==
[2023-10-13 20:48] LABS: ALT 19 U/L (16-63); AST 17 U/L (15-37); Albumin 3.2 g/dL (3.4-5.0); Alkaline Phosphatase 90 U/L (46-116); Anion Gap 5.8 mmol/L (3-11); BUN 9 mg/dL (7-18); Bilirubin, Total 0.47 mg/dL (0.2-1.0); CO2 32.2 mmol/L (21.0-32.0); CREATININE 0.7 mg/dL (0.70-1.30); Calcium 9.1 mg/dL (8.5-10.1); Chloride 96 mmol/L (98-107); Estimated GFR 97.29 (mL/min/1.73m2); Glucose 105 mg/dL (74-106); Magnesium 1.6 mg/dL (1.8-2.4); Potassium 4.3 mmol/L (3.5-5.1); Sodium 134 mmol/L (136-145); Total Protein 7.2 g/dL (6.4-8.2); Vitamin D 25 Total 31.1 ng/mL (30-100)
--- OUTSIDE RECORDS SUMMARY | 2023-10-13 22:24 | XMS_ITS | Encounter Summary ---
Author Organization [facility] Address [address] [place] [address] Care Team Providers Care Financial Intern Name Role Phone Katia Stone PA-C Primary Care Provider +1- [phone] Encounter Details Date Type Department Care Team (Late st Contact Info) Description 09/06/2020 Results Only [facility] [phone] Rowan Abad, TAIWO [address] [place] [phone] Social History Tobacco Use Types Packs/Day [...] * PLATELET COUNT (09/06/2020 5:05 EDT) Pathologist [facility] PLATELET COUNT - [facility] 236 150 - 450 10 3/uL 09/06/2020 5:55 EDT [facility] 09/06/2020 5:05 EDT 09/06/2020 5:32 EDT Narrative [facility] - 09/06/2020 5:58 EDT Comment ENOXAPARIN MONITORING Rowan Abad NP HEMATOLOGY & PF4 ORD ERABLES Performing Organization Address City/State/[facility] Co de Phone Number [facility] [address] [place] [address] * (ABNORMAL) CREATININE WITH GFR - PMC (09/06/2020 5:05 EDT) Pathologist [facility] Creatinine 0.60(L) 0.70 - 1.30 mg/dl 09/06/2020 5:52 EDT [facility] Estimated GFR >60 >60 09/06/2020 5:52 EDT [facility] Comment: EGFR UNITS: mL/min/1.73 m 2 CKD-EPI Equation used to calculate. 09/06/2020 5:05 EDT 09/06/2020 5:32 EDT Rowan Abad NP CHEMISTRY & BLOOD GA S ORDERABLES [facility] [address] [place] [address] documented in this encounter Visit Diagnoses Not on filedocumented in this encounter Care Teams Financial Intern Relationship Specialty Start Date End Date Katia Stone, MINGO [address] [place] [phone] PCP - General 05/02/17 documented as of this encounter
--- OUTSIDE RECORDS SUMMARY | 2023-10-13 22:24 | XMS_ITS | Encounter Summary ---
Author Organization [facility] Address [address] [place] [address] Care Team Providers Care Belt Picker Name Role Phone Katia Stone PA-C Primary Care Provider +1- [phone] Encounter Details Date Type Department Care Team (Late st Contact Info) Description 09/14/2020 Results Only [facility] [phone] Rowan Abad, TAIWO [address] [place] [phone] Social History Tobacco Use Types Packs/Day [...] - 450 10 3/uL 09/14/2020 6:07 EDT [facility] 09/14/2020 5:35 EDT 09/14/2020 5:46 EDT Narrative [facility] - 09/14/2020 6:16 EDT Comment ENOXAPARIN MONITORING Rowan Abad NP HEMATOLOGY & PF4 ORD ERABLES Performing Organization Address City/State/[facility] [[email or web address]] Co de Phone Number [facility] [address] [place] [address] * (ABNORMAL) CREATININE WITH GFR - PMC (09/14/2020 5:35 EDT) Creatinine 0.58(L) 0.70 - 1.30 mg/dl 09/14/2020 6:09 EDT [facility] Estimated GFR >60 >60 09/14/2020 6:09 T [facility] Comment: EGFR UNITS: mL/min/1.73 m 2 CKD-EPI Equation used to calculate. 09/14/2020 5:35 EDT 09/14/2020 5:46 EDT Rowan Abad NP CHEMISTRY & BLOOD GA S ORDERABLES [facility] [address] [place] [address] documented in this encounter Visit Diagnoses Not on filedocumented in this encounter Care Teams Belt Picker Relationship Specialty Start Date End Date Katia Stone, MINGO [address] [place] [phone] PCP - General 05/02/17 documented as of this encounter
--- OUTSIDE RECORDS SUMMARY | 2023-10-13 22:24 | XMS_ITS | Encounter Summary ---
Author Organization [facility] Address [address] [place] [address] Care Team Providers Care Porcelain Enamel Repairer Name Role Phone Katia Stone PA-C Primary Care Provider +1- [phone] Encounter Details Date Type Department Care Team (Late st Contact Info) Description 08/17/2023 Lab Requisition [facility] Pathology & Laboratory Medicine - [address] [address] Outr Resulting Lab, Provider Social History Tobacco [...] 150 - 1,150 mOsm/kg 08/17/2023 16:14 EDT [facility] Urine URINE / Unknown 08/16/2023 2 1:50 EDT 08/17/2023 16:03 EDT Provider Outr Resulting Lab URINALYSIS O RDERABLES [facility] [address] [place] [address] documented in this encounter Visit Diagnoses Not on filedocumented in this encounter Care Teams Porcelain Enamel Repairer Relationship Specialty Start Date End Date Katia Stone PA-C [address] [place] [phone] PCP - General 05/02/17 documented as of this encounter
--- OUTSIDE RECORDS SUMMARY | 2023-10-13 22:24 | XMS_ITS | Encounter Summary ---
Author Organization [facility] Address [address] [place] [address] Care Team Providers Care Ortho Assistant Name Role Phone Katia Stone PA-C Primary Care Provider +1- [phone] Encounter Details Date Type Department Care Team (Late st Contact Info) Description 08/29/2020 Results Only [facility] [phone] Rowan Abad, TAIWO [address] [place] [phone] Social History Tobacco Use Types Packs/Day [...] 0.70 - 1.30 mg/dl 08/29/2020 5:41 EDT [facility] Estimated GFR >60 >60 08/29/2020 5:41 EDT [facility] Comment: EGFR UNITS: mL/min/1.73 m 2 CKD-EPI Equation used to calculate. 08/29/2020 5:05 EDT 08/29/2020 5:23 EDT Rowan Abad NP CHEMISTRY & BLOOD GA S ORDERABLES Performing Organization Address City/[facility]/ZIP Co de Phone Number [facility] [address] [place] [address] * PLATELET COUNT (08/29/2020 5:05 EDT) PLATELET COUNT - [facility] 324 150 - 450 10 3/uL 08/29/2020 5:39 EDT [facility] 08/29/2020 5:05 EDT 08/29/2020 5:23 EDT Narrative [facility] - 08/29/2020 5:41 EDT Comment ENOXAPARIN MONITORING Rowan Abad NP HEMATOLOGY & PF4 ORD ERABLES [facility] [address] [place] [address] documented in this encounter Visit Diagnoses Not on filedocumented in this encounter Care Teams Ortho Assistant Relationship Specialty Start Date End Date Katia Stone, MINGO [address] [place] [phone] PCP - General 05/02/17 documented as of this encounter
--- OUTSIDE RECORDS SUMMARY | 2023-10-13 22:24 | XMS_ITS | Clinical Summary ---
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 Hypertensive urgency 05/01/2017 Heart block AV third degree ([facility]) 04/30/2017 Resolved Problems Problem Noted Date Diagnosed Date Resolved Date Acute on chronic diastolic c ongestive heart failure ([facility]) 05/01/2017 05/27/2017 Encounters Date Type Department Care Team Description 08/17/2023 Lab Requisition [facility] Pathology & Laboratory [address] [address] Outr Resulting Lab, Provider 08/17/2023 Lab Requisition [facility] Pathology & Laboratory [address] [address] Outr Resulting Lab, Provider from Last 3 Months Surgical History Surgery Date Site/Laterality Comments PACEMAKER PLACEMENT 03/03/2017 - 03/02/2018 OTHER SURGICAL HISTORY 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 3830 Selectsecure Mri Surescan - [id number] Implanted:05/21 (Quantity not on file) Lead Medtronic 3830 SELECTSECURE MRI SURESCAN / [id number] / Description:Implant record l oaded by [employer]les import. L111 [employer]entio Mri - [id number] Implanted:05/02 (Quantity not on file) Pacemaker [employer] L111 ESSENTIO MRI / [id number] / Description:Implant record l oaded by IMP Chronicles import. Procedures Procedure Name Priority Date/Time Associated Diagnosis Comments OSMOLALITY, URINE Routine 08/16/2023 21: 50 EDT OSMOLALITY Routine 08/16/2023 20:10 EDT from Last 3 Months Results * OSMOLALITY, URINE (08/16/2023 21:50 EDT) Osmolality, Urine 347 150 - 1,150 mOsm/kg 08/17/2023 16:14 EDT [facility] Urine URINE / Unknown 08/16/2023 2 1:50 EDT 08/17/2023 16:03 EDT Provider Outr Resulting Lab URINALYSIS O RDERABLES Performing Organization Address City/[facility]/ZIP Co de Phone Number [facility] [address] [place] [address] * (ABNORMAL) OSMOLALITY (08/16/2023 20:10 EDT) Osmolality, Serum 259(L) 275 - 295 mOsm/kg 08/17/2023 16:24 EDT [facility] Blood VENOUS BLOOD / Unknown 08/16/2023 20:10 EDT 08/17/2023 16:03 EDT Provider Outr Resulting Lab CHEMISTRY & BLOOD GAS ORDERABLES Performing Organization Address City/[facility]/ZIP Co de Phone Number [facility] [address] [place] [address] from Last 3 Months Advance Directives For more information, please contact: [phone] * Full Code (Latest Code Status on [...] the discussion? Not Discusse d Care Teams Heater Operator Relationship Specialty Start Date End Date Katia Stone, BELLAC [address] [place] [phone] PCP - General 05/02/17
--- OUTSIDE RECORDS SUMMARY | 2023-10-13 22:24 | XMS_ITS | Encounter Summary ---
Author Organization [facility] Address [address] [place] [address] Care Team Providers Care Pottery Striper Name Role Phone Katia Stone PA-C Primary Care Provider +1- [phone] Encounter Details Date Type Department Care Team (Late st Contact Info) Description 06/23/2021 Lab Requisition [facility] Pathology & Laboratory Medicine - [address] [id number] Outr Resulting Lab, Provider Social History Tobacco [...] Urine 509 150-1,150 mOsm/kg 06/23/2021 21:58 EDT [facility] Urine URINE SPECIMEN COLLECTION, CLEAN CATCH / Unknown 06/23/2021 4:00 EDT 06/23/2021 21:40 EDT Provider Outr Resulting Lab URINALYSIS O RDERABLES [facility] [address] [place] [address] documented in this encounter Visit Diagnoses Not on filedocumented in this encounter Additional Health Concerns Infection Onset Date Last Indicated Resolved Time RSV 01/31/2022 01/31/2022 02/10/2022 22:1 5 EST documented as of this encounter Care Teams Pottery Striper Relationship Specialty Start Date End Date Katia Stone, BELLAC [address] [place] [phone] PCP - General 05/02/17 documented as of this encounter
--- OUTSIDE RECORDS SUMMARY | 2023-10-13 22:24 | XMS_ITS | Encounter Summary ---
Author Organization [facility] Address [address] [place] [address] Care Team Providers Care Founder Ceo & President Name Role Phone Katia Stone PA-C Primary Care Provider +1- [phone] Encounter Details Date Type Department Care Team (Late st Contact Info) Description 09/26/2020 Results Only [facility]- [facility] [phone] Rowan Abad, TAIWO [address] [place] [phone] Social History Tobacco Use Types Packs/Day [...] 1.8 - 2.4 mg/dl 09/26/2020 15:12 EDT [facility] 09/26/2020 14:3 3 EDT 09/26/2020 14:54 EDT Rowan Abad NP CHEMISTRY & BLOOD GA S ORDERABLES [facility] [address] [place] [address] * (ABNORMAL) BASIC METABOLIC PANEL (BMP) (09/26/2020 14:33 EDT) Sodium 131(L) 136 - 145 mEq/L 09/26/2020 15:12 EDT [facility] Potassium 4.2 3.5 - 5.1 mEq/L 09/26/2020 15:12 [facility] Chloride 96 96 - 107 mEq/L 09/26/2020 15:12 EDT [facility] CO2 Total 30.9 21 - 32 mEq/L 09/26/2020 15:12 T [facility] Anion Gap 3.1 mEq/L 09/26/2020 15:12 [facility] BUN 10 7 - 25 mg/dl 09/26/2020 15:12 [facility] Creatinine 0.82 0.70 - 1.30 mg/dl 09/26/2020 15:12 [facility] Estimated GFR >60 >60 09/26/2020 15:12 [facility] Comment: EGFR UNITS: mL/min/1.73 m 2 CKD-EPI Equation used to calculate. Glucose 111(H) 74 - 106 mg/dl 09/26/2020 15:12 [facility] Calcium 8.6 8.5 - 10.1 mg/dl 09/26/2020 15:12 [facility] 09/26/2020 14:3 3 EDT 09/26/2020 14:54 EDT Rowan Abad NP CHEMISTRY & BLOOD GA S ORDERABLES Performing Organization Address City/State/[facility] Co de Phone Number [facility] [address] [place] [address] * (ABNORMAL) COMPLETE BLOOD COUNT AND DIFFERENTIAL (09/26/2020 14:33 EDT) WBC 7.3 4.0 - 10.5 10 3/uL 09/26/2020 15:08 [facility] RBC 3.30(L) 4.70 - 6.00 10 6/uL 09/26/2020 15:08 [facility] Hemoglobin 11.2(L) 13.5 - 18.0 g/dL 09/26/2020 15:08 [facility] HCT 32.0(L) 42.0 - 52.0 % 09/26/2020 15:08 [facility] MCV 97.0 78 - 100 fL 09/26/2020 15:08 [facility] MCH 33.9(H) 27 - 31 pg 09/26/2020 15:08 [facility] MCHC 35.0 32 - 37 g/dL 09/26/2020 15:08 [facility] RDW-CV - PMC 11.7 <14.7 % 09/26/2020 15:08 [facility] PLATELET COUNT - PMC 291 150 - 450 10 3/uL 09/26/2020 15:08 [facility] MPV 11.0 9.2 - 12.0 fL 09/26/2020 15:08 [facility] NEUTROPHILS % (AUTO) - PMC 59.3 % 09/26/2020 15:08 [facility] LYMPHOCYTES % (AUTO) - PMC 23.9 % 09/26/2020 15:08 [facility] MONOCYTES % (AUTO) - PMC 12.3 % 09/26/2020 15:08 [facility] EOSINOPHILS % (AUTO) - PMC 2.9 NOT ESTABLISHED % 09/26/2020 15:08 [facility] BASOPHILS % (AUTO) - PMC 1.0 % 09/26/2020 15:08 [facility] Immature Granulocyte % (Auto) 0.6 % 09/26/2020 15:08 [facility] NUCLEATED RBC % (AUTO) - PMC 0.0 % 09/26/2020 15:08 [facility] NEUTROPHILS # (AUTO) - PMC 4.3 1.5 - 6.6 10 3/uL 09/26/2020 15:08 [facility] LYMPHOCYTES # (AUTO) - PMC 1.7 1.0 - 3.5 10 3/uL 09/26/2020 15:08 [facility] MONOCYTES # (AUTO) - PMC 0.9 <1.0 10 3/uL 09/26/2020 15:08 [facility] EOSINOPHILS # (AUTO) - PMC 0.2 <0.7 10 3/uL 09/26/2020 15:08 [facility] BASOPHILS # (AUTO) - PMC 0.1 <0.1 10 3/uL 09/26/2020 15:08 [facility] Absolute Immature Granulocyte 0.04 <0.06 10 3/uL 09/26/2020 15:08 [facility] DIFFERENTIAL METHOD Auto Differential 09/26/2020 14:56 [facility] 09/26/2020 14:3 3 EDT 09/26/2020 14:54 EDT Rowan Abad CERTIFIER PACKAGES & DNA PROBE ORDERABLES [facility] [address] [place] [address] documented in this encounter Visit Diagnoses Not on filedocumented in this encounter Care Teams Founder Ceo & President Relationship Specialty Start Date End Date Katia Stone, BELLAC [address] [place] [phone] PCP - General 05/02/17 documented as of this encounter
--- OUTSIDE RECORDS SUMMARY | 2023-10-13 22:24 | XMS_ITS | Encounter Summary ---
Author Organization [facility] Address [address] [place] [address] Care Team Providers Care Materials Research Engineer Name Role Phone Katia Stone PA-C Primary Care Provider +1- [phone] Encounter Details Date Type Department Care Team (Late st Contact Info) Description 09/02/2020 Results Only [facility]- [facility] [phone] Rowan Abad, TAIWO [address] [place] [phone] Social History Tobacco Use Types Packs/Day [...] 0.70 - 1.30 mg/dl 09/02/2020 7:12 EDT [facility] Estimated GFR >60 >60 09/02/2020 7:12 EDT [facility] Comment: EGFR UNITS: mL/min/1.73 m 2 CKD-EPI Equation used to calculate. 09/02/2020 6:18 EDT 09/02/2020 6:44 EDT Rowan Abad NP CHEMISTRY & BLOOD GA S ORDERABLES Performing Organization Address City/[facility]/ZIP Co de Phone Number [facility] [address] [place] [address] * PLATELET COUNT (09/02/2020 6:18 EDT) PLATELET COUNT - [facility] 247 150 - 450 10 3/uL 09/02/2020 6:57 EDT [facility] 09/02/2020 6:18 EDT 09/02/2020 6:44 EDT Narrative [facility] - 09/02/2020 7:06 EDT Comment ENOXAPARIN MONITORING Rowan Abad NP HEMATOLOGY & PF4 ORD ERABLES [facility] [address] [place] [address] documented in this encounter Visit Diagnoses Not on filedocumented in this encounter Care Teams Materials Research Engineer Relationship Specialty Start Date End Date Katia Stone, MINGO [address] [place] [phone] PCP - General 05/02/17 documented as of this encounter
--- OUTSIDE RECORDS SUMMARY | 2023-10-13 22:24 | XMS_ITS | Encounter Summary ---
Author Organization [facility] Address [address] [place] [address] Care Team Providers Care Pit And Auxiliaries Supervisor Name Role Phone Katia Stone PA-C Primary Care Provider +1- [phone] Encounter Details Date Type Department Care Team (Late st Contact Info) Description 02/01/2022 Lab Requisition [facility] Pathology & Laboratory Medicine - [address] [address] Outr Resulting Lab, Provider Social History Tobacco [...] Result (FLARES) Negative Negative 02/02/2022 1:45 EST [facility] FLU B RNA Result (FLBRES) Negative Negative 02/02/2022 1:45 EST [facility] RSV RNA Result (RSVRES) Positive(A) Negative 02/02/2022 1:45 EST [facility] Swab ENTIRE NASOPHARYNX / Unknown 01/31/2022 9:47 EST 02/01/2022 20:34 EST Provider Outr Resulting Lab MICROBIOLOGY - GENERAL ORDERABLES Performing Organization Address City/State/[facility] Co de Phone Number [facility] [address] [place] [address] documented in this encounter Visit Diagnoses Not on filedocumented in this encounter Additional Health Concerns Infection Onset Date Last Indicated Resolved Time RSV 01/31/2022 01/31/2022 02/10/2022 22:1 5 EST documented as of this encounter Care Teams Pit And Auxiliaries Supervisor Relationship Specialty Start Date End Date Katia Stone, PABijalC [address] [facility] [phone] PCP - General 05/02/17 documented as of this encounter
--- OUTSIDE RECORDS SUMMARY | 2023-10-13 22:24 | XMS_ITS | Encounter Summary ---
Author Organization [facility] Address [address] [place] [address] Care Team Providers Care Equipment Validation Engineer Name Role Phone Katia Stone PA-C Primary Care Provider +1- [phone] Encounter Details Date Type Department Care Team (Late st Contact Info) Description 03/13/2022 Lab Requisition [facility] Pathology & Laboratory Medicine - [address] [address] Outr Resulting Lab, Provider Social History Tobacco [...] Antigen Detection Negative Negative 03/13/2022 21:38 EST [facility] Urine URINE / Unknown 03/12/2022 1 9:15 EST 03/13/2022 17:44 EST Provider Outr Resulting Lab MICROBIOLOGY - GENERAL ORDERABLES Performing Organization Address City/State/[facility] Co de Phone Number [facility] [address] [place] [address] documented in this encounter Visit Diagnoses Not on filedocumented in this encounter Care Teams Equipment Validation Engineer Relationship Specialty Start Date End Date Katia Stone, PABijalC [address] [place] [address] PCP - General 05/02/17 documented as of this encounter
--- OUTSIDE RECORDS SUMMARY | 2023-10-13 22:24 | XMS_ITS | Encounter Summary ---
Author Organization [facility] Address [address] [place] [address] Care Team Providers Care Partition Assembler Name Role Phone Katia Stone PA-C Primary Care Provider +1- [phone] Encounter Details Date Type Department Care Team (Late st Contact Info) Description 09/10/2020 Results Only [facility]- [facility] [phone] Rowan Abad, TAIWO [address] [place] [phone] Social History Tobacco Use Types Packs/Day [...] PLATELET COUNT (09/10/2020 5:40 EDT) Pathologist [facility] PLATELET COUNT - PMC 250 150 - 450 10 3/uL 09/10/2020 6:29 EDT [facility] 09/10/2020 5:40 EDT 09/10/2020 6:11 EDT Narrative [facility] - 09/10/2020 6:49 EDT Comment ENOXAPARIN MONITORING Rowan Abad NP HEMATOLOGY & PF4 ORD ERABLES Performing Organization Address City/State/[facility] Co de Phone Number [facility] [address] [place] [address] * (ABNORMAL) CREATININE WITH GFR - PMC (09/10/2020 5:40 EDT) Pathologist [facility] Creatinine 0.57(L) 0.70 - 1.30 mg/dl 09/10/2020 6:42 EDT [facility] Estimated GFR >60 >60 09/10/2020 6:42 EDT [facility] Comment: EGFR UNITS: mL/min/1.73 m 2 CKD-EPI Equation used to calculate. 09/10/2020 5:40 EDT 09/10/2020 6:11 EDT Rowan Abad NP CHEMISTRY & BLOOD GA S ORDERABLES [facility] [address] [place] [address] documented in this encounter Visit Diagnoses Not on filedocumented in this encounter Care Teams Partition Assembler Relationship Specialty Start Date End Date Katia Stone, MINGO [address] [place] [phone] PCP - General 05/02/17 documented as of this encounter
--- OUTSIDE RECORDS SUMMARY | 2023-10-13 22:24 | XMS_ITS | Encounter Summary ---
Author Organization [facility] Address [address] [place] [address] Care Team Providers Care Warehouse Delivery Driver Name Role Phone Katia Stone PA-C Primary Care Provider +1- [phone] Reason for Visit * (Routine/Next Available) - New Request Specialty Diagnoses / Procedures Referred By Contac t Referred To Contact Procedures CT OUTSIDE IMAGES BODY Unknown, Provider, Referral ID Status Reason Start Date Expiration Date V isits Requested Visits Authorized [id number] New Request 06/20/2021 1 1 Encounter Details Date Type Department Care Team (Latest Contact Info) Description 06/20/2021 15:36 EDT - 06/20/2021 23:59 EDT Hospital Encounter [facility] Secondary Reads [place] Discharge Disposition: [...] filedocumented in this encounter Care Teams Warehouse Delivery Driver Relationship Specialty Start Date End Date Katia Stone, PABijalC [address] [place] [phone] PCP - General 05/02/17 documented as of this encounter
--- OUTSIDE RECORDS SUMMARY | 2023-10-13 22:24 | XMS_ITS | Referral Summary ---
Author Organization [facility] Address [address] [place] [address] Care Team Providers Care Spd Tech Name Role Phone Katia Stone PA-C Primary Care Provider +1- [phone] Encounters Date Type Department Care Team Description 08/17/2023 Lab Requisition [facility] Pathology & Laboratory Medicine [address] [address] Outr Resulting Lab, Provider 08/17/2023 Lab Requisition [facility] Pathology & Laboratory [facility] [address] [place] [address] Outr Resulting Lab, Provider from Last 3 [...] Overview: Added automatically from request for surgery [id number] Heart failure ([facility]) 06/12/2017 Acute pericarditis 05/27/2017 Hyponatremia 05/20/2017 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 Hypertensive urgency 05/01/2017 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 3830 Selectsecure Mri Surescan - [id number] Implanted:05/21 (Quantity not on file) Lead Medtronic 3830 SELECTSECURE MRI SURESCAN / [id number] / Description:Implant record l oaded by IMP Chronicles import. L111 Essentio Mri - [id number] Implanted:05/02 (Quantity not on file) Pacemaker [employer] L111 ESSENTIO MRI / [id number] / Description:Implant record l oaded by IMP Chronicles import. Procedures Procedure Name Priority Date/Time Associated Diagnosis Comments OSMOLALITY, URINE Routine 08/16/2023 21: 50 EDT OSMOLALITY Routine 08/16/2023 20:10 EDT from Last 3 Months Results * OSMOLALITY, URINE (08/16/2023 21:50 EDT) Osmolality, Urine 347 150 - 1,150 mOsm/kg 08/17/2023 16:14 EDT [facility] Urine URINE / Unknown 08/16/2023 2 1:50 EDT 08/17/2023 16:03 EDT Provider Outr Resulting Lab URINALYSIS O RDERABLES Performing Organization Address [facility]/ZIP Co de Phone Number [facility] [address] [place], [place] [address] * (ABNORMAL) OSMOLALITY (08/16/2023 20:10 EDT) Osmolality, Serum 259(L) 275 - 295 mOsm/kg 08/17/2023 16:24 EDT [facility] Blood VENOUS BLOOD / Unknown 08/16/2023 20:10 EDT 08/17/2023 16:03 EDT Provider Outr Resulting Lab CHEMISTRY & BLOOD GAS ORDERABLES Performing Organization Address [facility]/ZIP Co de Phone Number [facility] [address] [place], [place] [address] from Last 3 Months Advance Directives For more information, please contact: [phone] * Full Code (Latest Code Status on [...] the discussion? Not Discusse d Care Teams Spd Tech Relationship Specialty Start Date End Date Katia Stone PA-C [address] [place] [phone] [facility] - General 05/02/17
--- OUTSIDE RECORDS SUMMARY | 2023-10-13 22:24 | XMS_ITS | Encounter Summary ---
Author Organization [facility] Address [address] [place] [address] Care Team Providers Care Loan Coordinator Name Role Phone Katia Stone PA-C Primary Care Provider +1- [phone] Encounter Details Date Type Department Care Team (Late st Contact Info) Description 09/15/2020 Results Only [facility] [address] [place] [address] Junior Ray MD [address] [place] [address] Social History Tobacco Use Types [...] 4.0 - 10.5 10 3/uL 09/15/2020 5:45 [facility] RBC 3.26(L) 4.70 - 6.00 10 6/uL 09/15/2020 5:45 [facility] Hemoglobin 11.2(L) 13.5 - 18.0 g/dL 09/15/2020 5:45 [facility] HCT 31.9(L) 42.0 - 52.0 % 09/15/2020 5:45 [facility] MCV 97.9 78 - 100 fL 09/15/2020 5:45 [facility] MCH 34.4(H) 27 - 31 pg 09/15/2020 5:45 [facility] MCHC 35.1 32 - 37 g/dL 09/15/2020 5:45 [facility] RDW-CV - PMC 12.4 <14.7 % 09/15/2020 5:45 [facility] PLATELET COUNT - PMC 256 150 - 450 10 3/uL 09/15/2020 5:45 [facility] MPV 10.6 9.2 - 12.0 fL 09/15/2020 5:45 [facility] 09/15/2020 5:25 EDT 09/15/2020 5:28 EDT Junior Ray MD HEMATOLOGY & PF4 OR DERABLES [facility] [address] [place] [address] documented in this encounter Visit Diagnoses Not on filedocumented in this encounter Care Teams Loan Coordinator Relationship Specialty Start Date End Date Katia Stone, PABijalC [address] [place] [phone] PCP - General 05/02/17 documented as of this encounter
--- OUTSIDE RECORDS SUMMARY | 2023-10-13 22:24 | XMS_ITS | Encounter Summary ---
Author Organization [facility] Address [address] [place] [address] Care Team Providers Care Refinery Operator Vapor Recovery Unit Name Role Phone Katia Stone PA-C Primary Care Provider +1- [phone] Encounter Details Date Type Department Care Team (Late st Contact Info) Description 04/30/2022 Lab Requisition [facility] Pathology & Laboratory Medicine - [address] [address] Ike Chahal MD [address] [place] [id number] Disorder of the skin and subcutaneous tissue, [...] explore management options, if applicable. 05/01/2022 14:29 [facility] Final Diagnosis A. SKIN OF NASAL TIP, EXCISION: - Dermal fibrosis, adipose accumulation, and edema with sebaceous hyperplasia and lymphoplasmacytic inflammation. See comment. 05/01/2022 14:29 [facility] Diagnosis Comment The histopathologic features, in the correct clinical setting, are most suggestive of rhinophyma. There is no evidence of malignancy. 05/01/2022 14:29 [facility] Attestation By the signature below, the attending physician certifies that they have 1) personally conducted a gross and/or microscopic examination of the described specimen(s), and/or personally interpreted the results of laboratory testing of the described specimen(s), and 2) personally rendered or confirmed the above diagnosis. 05/01/2022 14:29 [facility] at 1429 Microscopic Description Sections [...] direct continuity with overlying epidermis. 05/01/2022 14:29 [facility] Clinical History Nasal tip lesion; clinical diagnosis code: L98.9 05/01/2022 14:29 [facility] Gross Description A. Received [...] sections GIRISH GOMEZ(ASCP) 04/30/2022 9:39 05/01/2022 14:29 [facility] Performing Lab [facility] 05/01/2022 14:29 [facility] Scanned Images 05/01/2022 14:29 [facility] Tissue TISSUE SPECIMEN FROM SKIN / Unknown 04/29/2022 14:00 EST 04/30/2022 9:00 EST Ike Chahal MD PATHOLOGY ORDERABLES [facility] [address] [place] [address] documented in this encounter Visit Diagnoses Diagnosis Disorder of the skin and subcutaneous tissue, unspecified documented in this encounter Care Teams Refinery Operator Vapor Recovery Unit Relationship Specialty Start Date End Date Katia Stone, BELLAC [address] [facility] [place] [phone] PCP - General 05/02/17 documented as of this encounter
--- OUTSIDE RECORDS SUMMARY | 2023-10-13 22:24 | XMS_ITS | Encounter Summary ---
Author Organization [facility] Address [address] [place] [address] Care Team Providers Care Tax Examining Technician Name Role Phone Katia Stone PA-C Primary Care Provider +1- [phone] Encounter Details Date Type Department Care Team (Late st Contact Info) Description 08/17/2023 Lab Requisition [facility] Pathology & Laboratory Medicine - [address] [address] Outr Resulting Lab, Provider Social History Tobacco [...] 275 - 295 mOsm/kg 08/17/2023 16:24 EDT [facility] Blood VENOUS BLOOD / Unknown 08/16/2023 20:10 EDT 08/17/2023 16:03 EDT Provider Outr Resulting Lab CHEMISTRY & BLOOD GAS ORDERABLES [facility] [address] [place] [address] documented in this encounter Visit Diagnoses Not on filedocumented in this encounter Care Teams Tax Examining Technician Relationship Specialty Start Date End Date Katia Stone PA-C [address] [place] [phone] PCP - General 05/02/17 documented as of this encounter
--- OUTSIDE RECORDS SUMMARY | 2023-10-13 22:24 | XMS_ITS | Encounter Summary ---
Author Organization [facility] Address [address] [place] [address] Care Team Providers Care Community Relations Liaison Name Role Phone Katia Stone PA-C Primary Care Provider +1- [phone] Encounter Details Date Type Department Care Team (Late st Contact Info) Description 09/05/2020 Results Only [facility] [phone] Rowan Abad, TAIWO [address] [place] [phone] Social History Tobacco Use Types Packs/Day [...] 4.0 - 10.5 10 3/uL 09/05/2020 14:58 [facility] RBC 3.40(L) 4.70 - 6.00 10 6/uL 09/05/2020 14:58 [facility] Hemoglobin 11.6(L) 13.5 - 18.0 g/dL 09/05/2020 14:58 [facility] HCT 33.9(L) 42.0 - 52.0 % 09/05/2020 14:58 [facility] MCV 99.7 78 - 100 fL 09/05/2020 14:58 [facility] MCH 34.1(H) 27 - 31 pg 09/05/2020 14:58 [facility] MCHC 34.2 32 - 37 g/dL 09/05/2020 14:58 [facility] RDW-CV - PMC 13.1 <14.7 % 09/05/2020 14:58 [facility] PLATELET COUNT - PMC 253 150 - 450 10 3/uL 09/05/2020 14:58 [facility] MPV 10.9 9.2 - 12.0 fL 09/05/2020 14:58 [facility] NEUTROPHILS % (AUTO) - PMC 57.6 % 09/05/2020 14:58 [facility] LYMPHOCYTES % (AUTO) - PMC 25.0 % 09/05/2020 14:58 [facility] MONOCYTES % (AUTO) - PMC 13.3 % 09/05/2020 14:58 [facility] EOSINOPHILS % (AUTO) - PMC 2.7 NOT ESTABLISHED % 09/05/2020 14:58 [facility] BASOPHILS % (AUTO) - PMC 1.1 % 09/05/2020 14:58 [facility] Immature Granulocyte % (Auto) 0.3 % 09/05/2020 14:58 [facility] NUCLEATED RBC % (AUTO) - PMC 0.0 % 09/05/2020 14:58 [facility] NEUTROPHILS # (AUTO) - PMC 3.7 1.5 - 6.6 10 3/uL 09/05/2020 14:58 [facility] LYMPHOCYTES # (AUTO) - PMC 1.6 1.0 - 3.5 10 3/uL 09/05/2020 14:58 [facility] MONOCYTES # (AUTO) - PMC 0.9 <1.0 10 3/uL 09/05/2020 14:58 [facility] EOSINOPHILS # (AUTO) - PMC 0.2 <0.7 10 3/uL 09/05/2020 14:58 [facility] BASOPHILS # (AUTO) - PMC 0.1 <0.1 10 3/uL 09/05/2020 14:58 [facility] Absolute Immature Granulocyte 0.02 <0.06 10 3/uL 09/05/2020 14:58 [facility] DIFFERENTIAL METHOD Auto Differential 09/05/2020 14:36 [facility] 09/05/2020 14:3 0 EDT 09/05/2020 14:35 EDT Rowan Abad NP PACKAGES & DNA PROBE ORDERABLES [facility] [address] [place] [address] * MAGNESIUM (09/05/2020 14:30 EDT) Pathologist [facility] Magnesium 1.8 1.8 - 2.4 mg/dl 09/05/2020 14:57 [facility] 09/05/2020 14:3 0 EDT 09/05/2020 14:35 EDT Rowan Abad NP CHEMISTRY & BLOOD GA S ORDERABLES Performing Organization Address City/[facility] Co de Phone Number [facility] [address] [place] [address] * (ABNORMAL) BASIC METABOLIC PANEL (BMP) (09/05/2020 14:30 EDT) Pathologist [facility] Sodium 132(L) 136 - 145 mEq/L 09/05/2020 14:57 [facility] Potassium 4.3 3.5 - 5.1 mEq/L 09/05/2020 14:57 [facility] Chloride 99 96 - 107 mEq/L 09/05/2020 14:57 [facility] CO2 Total 26.5 21 - 32 mEq/L 09/05/2020 14:57 [facility] Anion Gap 6.5 mEq/L 09/05/2020 14:57 [facility] BUN 12 7 - 25 mg/dl 09/05/2020 14:57 [facility] Creatinine 0.60(L) 0.70 - 1.30 mg/dl 09/05/2020 14:57 [facility] Estimated GFR >60 >60 09/05/2020 14:57 [facility] Comment: EGFR UNITS: mL/min/1.73 m 2 CKD-EPI Equation used to calculate. Glucose 100 74 - 106 mg/dl 09/05/2020 14:57 [facility] Calcium 8.6 8.5 - 10.1 mg/dl 09/05/2020 14:57 [facility] 09/05/2020 14:3 0 EDT 09/05/2020 14:35 EDT Rowan Abad TRAFFIC CONTROL OFFICER CHEMISTRY & BLOOD GA S ORDERABLES [facility] [address] [place] [address] documented in this encounter Visit Diagnoses Not on filedocumented in this encounter Care Teams Community Relations Liaison Relationship Specialty Start Date End Date Katia Stone, PABijalC [address] [place] [phone] PCP - General 05/02/17 documented as of this encounter
--- OUTSIDE RECORDS SUMMARY | 2023-10-13 22:24 | XMS_ITS | Encounter Summary ---
Author Organization [facility] Address [address] [place] [address] Care Team Providers Care Supervisor Cleaning And Annealing Name Role Phone Katia Stone PA-C Primary Care Provider +1- [phone] Encounter Details Date Type Department Care Team (Late st Contact Info) Description 06/21/2021 Lab Requisition [facility] Pathology & Laboratory Medicine - [address] [address] Virginia Price, DO [address] [place] [address] Acute cholecystitis Social History Tobacco Use Types [...] explore management options, if applicable. 06/26/2021 10:43 [facility] Final Diagnosis A. GALLBLADDER, CHOLECYSTECTOMY: - Acute and chronic erosive cholecystitis. 06/26/2021 10:43 [facility] Attestation There was significant resident/fellow involvement in the diagnostic evaluation of this case. By the signature below, the attending physician certifies that they have personally conducted a gross and/or microscopic examination of the described specimens and rendered or confirmed the above diagnosis. 06/26/2021 10:43 [facility] at 1043 Clinical History Cholecystitis 06/26/2021 10:43 [facility] Gross Description A. Received in [...] gallbladder or free-floating within the container. Two exhibit display representative sections and the en face cystic duct margin are submitted in A1. GIRISH GOMEZ(ASCP) 06/22/2021 7:58 06/26/2021 10:43 EDT [facility] Resident/Emile w: Chayo Chatman MD 06/26/2021 10:43 EDT [facility] Performing Lab [facility] 06/26/2021 10:43 EDT [facility] Scanned Images 06/26/2021 10:43 EDT [facility] Tissue ENTIRE GALLBLADDER / Unknown 06/21/2021 11:58 EDT 06/21/2021 17:30 EDT Virginia Price DO PATHOLOGY ORDERABLES [facility] [address] [place] [address] documented in this encounter Visit Diagnoses Diagnosis Acute cholecystitis documented in this encounter Additional Health Concerns Infection Onset Date Last Indicated Resolved Time RSV 01/31/2022 01/31/2022 02/10/2022 22:1 5 EST documented as of this encounter Care Teams Supervisor Cleaning And Annealing Relationship Specialty Start Date End Date Katia Stone, MINGO [address] [place] [address] PCP - General 05/02/17 documented as of this encounter
--- OUTSIDE RECORDS SUMMARY | 2023-10-13 22:24 | XMS_ITS | Encounter Summary ---
Author Organization [facility] Address [address] [place] [address] Care Team Providers Care Ammonia Technician Name Role Phone Katia Stone PA-C Primary Care Provider +1- [phone] Reason for Visit * Reason Onset Date Comments Discuss Possible Transfer 06/20/2021 Encounter Details Date Type Department Care Team (Late st Contact Info) Description 06/20/2021 Telephone [facility] [address] [place], [place] [id number] Amos Romero MD [address] [address] Discuss Possible Transfer Social History [...] 06/20/2021 1415 EDT PPS Call Requesting Facility: [facility] Requesting Provider: Dr. Alegria Date: 06/20/21 [...] effusion (per read from imaging 08/08/20 from [facility], this is chronic) and R iliac + [...] on filedocumented in this encounter Care Teams Ammonia Technician Relationship Specialty Start Date End Date Katia Stone, PABijalC [address] [place] [phone] PCP - General 05/02/17 documented as of this encounter
--- OUTSIDE RECORDS SUMMARY | 2023-10-13 22:25 | XMS_ITS | Encounter Summary ---
Author Organization [facility] Address [address] [place] [address] Care Team Providers Care Failure Analysis Technician Name Role Phone Katia Stone PA-C Primary Care Provider +1- [phone] Encounter Details Date Type Department Care Team (Late st Contact Info) Description 08/08/2020 Results Only Imaging [facility] Radiology Results [address] [place] [id number] Tony Christy MD [address] [place] [address] Social History Tobacco Use Types [...] 15:3 6 EDT Narrative 08/08/2020 15:36 EDT ?[facility] ?[address] ?[place] [address] ?Diagnostic Imaging Report ? Signed ? Patient Name:DAVID FARFAN ? Date of :1950 ?MR Number:[id number] ? Age:69 ?Sex:M ? Category: CR ?Date [...] questions regarding this report, please contact the [facility] at [phone] ? Dictated by: Temo Son MD ?D/ 15 ?? 36 ?? Transcribed by: SSOMROV ?D/T: ? E-Signed by: Temo Son MD ?D/ 19 ?? 38 ?? Procedure Note Temo Son MD - 08/08/2020 [facility] [address] [address] Diagnostic Imaging Report Signed Patient Name:DAVID FARFAN FAccount Number:[id number] Date of :1950 MRNumber:[id number] Age:69 Sex:M Category: CR Date ofExam:08/08/20 Procedure: CR: Chest; Frontal/LAT viewsAccession: [id number] Ordering Physician: Tony Christy MD Patient [...] questions regarding this report, please contact the [facility] at [phone] Dictated by: Temo Son MDD/ 15 36 Transcribed by: SSOMROVD/T: E-Signed by: Temo Son MDD/ 19 38 Tony Christy MD IMG DIAGNOSTIC DAWIT GING ORDERABLES * CT ABDOMEN PELVIS W CONTRAST (08/08/2020 15:36 EDT) Anatomical Region Laterality Modality Body, Abdomen, Pelvis, Abdomen and Pelvis Computed Tomography 08/08/2020 15:3 6 EDT Narrative 08/08/2020 15:36 EDT ?[facility]: [facility] ?[address] ?[place], [place] [address] ?Diagnostic Imaging Report ? Signed ? Patient Name:ADOLPH,DAVID Martinez ? Date of :1950 ?MR Number:[id number] ? Age:69 ?Sex:M ? Category: CT ?Date [...] please contact the [facility] at [phone] ? Dictated by: Temo Son MD ?D/ 15 ?? 36 ?? Transcribed by: DEBRA ?D/T: ? E-Signed by: Temo Son MD ?D/ 19 ?? 36 ?? Procedure Note Temo Son MD - 08/08/2020 [facility]: [address] [address] Diagnostic Imaging Report Signed Patient Name:DAVID FARFAN FAccount Number:[id number] Date of :1950 MRNumber:[id number] Age:69 Sex:M Category: CT Date ofExam:08/08/20 Procedure: CT: Abd Pelvis; wit cntrstAccession: [id number] Ordering Physician: Tony Christy MD Patient [...] questions regarding this report, please contact the [facility] at [phone] Dictated by: Temo Son MDD/ 15 36 Transcribed by: PRADEEPVD/T: E-Signed by: Temo Son MDD/ 19 36 Tony Christy MD IMG CT ORDERABLES documented in this encounter Visit Diagnoses Not on filedocumented in this encounter Additional Health Concerns Infection Onset Date Last Indicated Resolved Time RSV 01/31/2022 01/31/2022 02/10/2022 22:1 5 EST documented as of this encounter Care Teams Failure Analysis Technician Relationship Specialty Start Date End Date Katia Stone, PA-C [address] [place] [phone] PCP - General 05/02/17 documented as of this encounter
--- OUTSIDE RECORDS SUMMARY | 2023-10-13 22:25 | XMS_ITS | Encounter Summary ---
Author Organization [facility] Address [address] [place] [address] Care Team Providers Care Chainstitch Tunnel Elastic Operator Name Role Phone Katia Stone PA-C Primary Care Provider +1- [phone] Encounter Details Date Type Department Care Team (Late st Contact Info) Description 08/25/2020 Lab Requisition [facility] Pathology & Laboratory Medicine - [address] [address] Outr Resulting Lab, Provider Social History Tobacco [...] 1, PCR Negative Negative 08/26/2020 17:16 EDT [facility] Herpes Simplex Virus Molecular Detection 2, PCR Negative Negative 08/26/2020 17:16 EDT [facility] Swab ENTIRE UPPER LIMB / Unknown 08/25/2020 14:15 EDT 08/25/2020 21:20 EDT Provider Outr Resulting Lab MICROBIOLOGY - GENERAL ORDERABLES Performing Organization Address City/State/[facility] Co de Phone Number [facility] [address] [place] [address] documented in this encounter Visit Diagnoses Not on filedocumented in this encounter Additional Health Concerns Infection Onset Date Last Indicated Resolved Time RSV 01/31/2022 01/31/2022 02/10/2022 22:1 5 EST documented as of this encounter Care Teams Chainstitch Tunnel Elastic Operator Relationship Specialty Start Date End Date Katia Stone PA-C [address] [place] [address] PCP - General 05/02/17 documented as of this encounter
--- OUTSIDE RECORDS SUMMARY | 2023-10-13 22:25 | XMS_ITS | Encounter Summary ---
Author Organization [facility] Address [address] [place] [address] Care Team Providers Care Sail Lay Out Worker Name Role Phone Katia Stone PA-C Primary Care Provider +1- [phone] Encounter Details Date Type Department Care Team (Late st Contact Info) Description 08/19/2020 Results Only [facility] [address] [place] [address] Junior Ray MD [address] [place] [address] Social History Tobacco Use Types [...] 134(L) 136 - 145 mEq/L 08/19/2020 7:41 [facility] Potassium 3.5 3.5 - 5.1 mEq/L 08/19/2020 7:41 [facility] Chloride 99 96 - 107 mEq/L 08/19/2020 7:41 [facility] CO2 Total 29.4 21 - 32 mEq/L 08/19/2020 7:41 [facility] Anion Gap 5.6 mEq/L 08/19/2020 7:41 [facility] BUN 8 7 - 25 mg/dl 08/19/2020 7:41 [facility] Creatinine 0.48(L) 0.70 - 1.30 mg/dl 08/19/2020 7:41 [facility] Estimated GFR >60 >60 08/19/2020 7:41 [facility] Comment: EGFR UNITS: mL/min/1.73 m 2 CKD-EPI Equation used to calculate. Glucose 93 74 - 106 mg/dl 08/19/2020 7:41 [facility] Calcium 8.3(L) 8.5 - 10.1 mg/dl 08/19/2020 7:41 [facility] 08/19/2020 7:10 EDT 08/19/2020 7:13 EDT Junior Ray MD CHEMISTRY & BLOOD G ORDERABLES [facility] [address] [place] [address] documented in this encounter Visit Diagnoses Not on filedocumented in this encounter Care Teams Sail Lay Out Worker Relationship Specialty Start Date End Date Katia Stone, PABijalC [address] [facility] [place] [facility] [place] [phone] PCP - General 05/02/17 documented as of this encounter
--- OUTSIDE RECORDS SUMMARY | 2023-10-13 22:25 | XMS_ITS | Encounter Summary ---
Author Organization [facility] Address [address] [place] [address] Care Team Providers Care Associate Professor Of Criminal Justice Name Role Phone Katia Stone PA-C Primary Care Provider +1- [phone] Encounter Details Date Type Department Care Team (Late st Contact Info) Description 07/28/2020 Results Only [facility] [address] [place], [place] [address] Katia Stone, MINGO [address] [place] [address] Social History Tobacco Use Types [...] Folate 9.0 >8.6 ng/mL 08/01/2020 9:08 EDT [facility] 07/28/2020 14:3 8 EDT 08/01/2020 9:03 EDT Katia Stone PA-C CHEMISTRY & BLOOD GAS ORDERABLES [facility] [address] [place] [address] * VITAMIN B12 (07/28/2020 14:38 EDT) Vitamin B12 265 193 - 986 pg/mL 08/01/2020 9:08 EDT [facility] Comment: The results of this assay can be falsely elevated due to the consumption of Biotin. 07/28/2020 14:3 8 EDT 08/01/2020 9:03 EDT Katia Stone PA-C CHEMISTRY & BLOOD GAS ORDERABLES Performing Organization Address City/[facility]/ZIP Co de Phone Number [facility] [address] [place] [address] * (ABNORMAL) IRON,TIBC,FERRITIN GROUP - PMC (07/28/2020 14:38 EDT) Iron 158 65 - 175 mcg/dL 08/01/2020 9:08 EDT [facility] Iron Binding Capacity 212(L) 250 - 450 mcg/dL 08/01/2020 9:08 EDT [facility] PERCENT IRON SATURATION - PMC 75(H) 14 - 50 % 08/01/2020 9:08 EDT [facility] Ferritin >1,000(H) 26 - 388 ng/mL 08/01/2020 9:08 EDT [facility] 07/28/2020 14:3 8 EDT 08/01/2020 9:03 EDT Katia Stone PA-C CHEMISTRY & BLOOD GAS ORDERABLES Performing Organization Address [facility] Co de Phone Number [facility] [address] [place] [address] * MESSAGE - PMC (07/28/2020 14:38 EDT) MESSAGE - PMC 07/29/2020 2:55 EDT [facility] Comment: WE HAVE NOT RECEIVED ORDERS. PLEASE SEND THEM TO US. THANK YOU. 07/28/2020 14:3 8 EDT 07/28/2020 15:49 EDT Narrative [facility] - 07/29/2020 2:55 EDT NO ORDERS TIGER AND LAV Katia Stone PA-C CHEMISTRY & BLOOD GAS ORDERABLES Performing Organization Address City/[facility]/ZIP Co de Phone Number [facility] [address] [place] [address] documented in this encounter Visit Diagnoses Not on filedocumented in this encounter Care Teams Associate Professor Of Criminal Justice Relationship Specialty Start Date End Date Katia Stone PA-C [address] [place] [address] PCP - General 05/02/17 documented as of this encounter
--- OUTSIDE RECORDS SUMMARY | 2023-10-13 22:25 | XMS_ITS | Encounter Summary ---
Author Organization [facility] Address [address] [place] [address] Care Team Providers Care Ordnance Equipment Worker Name Role Phone Katia Stone PA-C Primary Care Provider +1- [phone] Reason for Visit * Reason Onset Date Comments Other 06/13/2020 Encounter Details Date Type Department Care Team (Late st Contact Info) Description 06/13/2020 Telephone [facility] Cardiothoracic Surgery - [address] [address] Cat Sutherland RN Other Social History Tobacco [...] that instructions mailed to him by our OJRGE Velázqeuz. I informed him his check in time is 10 am for surgery at 1210 on 06/26. His Lawyers with PCP is setting up his ride for [place] on 06/26 and for his COVID test that will need to be done 3-4 days prior to surgery. Patient verbalized understanding. I called the patient's Lawyers at [facility] at [phone] ext [phone] and left her a message (Maru Villalobos, TISH). She will be arranging his ride to [place] on [address] and for his COVID test. I have updated our MANAGER NET and Beulah FAIR CM at [facility] as well. documented in this encounter Plan of Treatment Not on file documented as of this encounter Visit Diagnoses Not on filedocumented in this encounter Care Teams Ordnance Equipment Worker Relationship Specialty Start Date End Date Katia Stone, BELLAC [address] [place] [phone] PCP - General 05/02/17 documented as of this encounter
--- OUTSIDE RECORDS SUMMARY | 2023-10-13 22:25 | XMS_ITS | Encounter Summary ---
Author Organization [facility] Address [address] [place] [address] Care Team Providers Care Oil And Gas Lease Pumper Name Role Phone Katia Stone PA-C Primary Care Provider +1- [phone] Encounter Details Date Type Department Care Team (Late st Contact Info) Description 08/25/2020 Results Only [facility] [phone] Rowan Abad, TAIWO [address] [place] [address] Social History Tobacco Use Types Packs/Day [...] Diagnosis Comments ORGANISM ID FROM PLATE - [facility] Routine 08/25/2020 14:15 EDT HSV (HERPES SIMPLEX VIRUS) MOLECULAR DETECTION, PCR Routine 08/25/2020 14:15 EDT CREATININE WITH GFR - PMC Routine 08/25/2020 6:09 EDT PLATELET COUNT Routine 08/25/2020 6:09 EDT documented in this encounter Results * (ABNORMAL) ORGANISM ID FROM PLATE - PMC (08/25/2020 14:15 EDT) GRAM SMEAR - PMC SEE NOTES(A) 08/27/2020 17:20 EDT [facility] Comment: RESULT: Few Neutrophils Present No bacteria seen SWATI RESULTS/ORGANISM ID - [facility] Few Usual skin jesi 08/27/2020 17:20 EDT [facility] Comment: Spec Description ?? Additional Information:: LEFT ARM Source:ARM Test [place] [id number] 08/25/2020 14:1 5 EDT 08/25/2020 14:34 EDT Narrative [facility] - 08/27/2020 17:20 EDT ARM LEFT ARM Rowan Abad NP MICROBIOLOGY - GENER AL ORDERABLES [facility] [address] [place] [address] * HERPES SIMPLEX VIRUS MOLECULAR DETECTION, PCR (08/25/2020 14:15 EDT) HERPES SIMPLEX VIRUS I DNA - PMC Negative Negative 08/26/2020 17:21 EDT [facility] HERPES SIMPLEX VIRUS 2 DNA - PMC Negative Negative 08/26/2020 19:39 EDT [facility] Comment: SOURCE:: ARM Spec Description ?? Additional Information:: LEFT ARM Source:LEFT ARM Test performed [place] [id number] 08/25/2020 14:1 5 EDT 08/25/2020 14:35 EDT [facility] - 08/26/2020 19:39 EDT ARM LEFT ARM Rowan Abad NP MICROBIOLOGY - GENER AL ORDERABLES Performing Organization Address [facility] Co de Phone Number [facility] [address] [place] [address] * (ABNORMAL) CREATININE WITH GFR - PMC (08/25/2020 6:09 EDT) Pathologist [facility] Creatinine 0.60(L) 0.70 - 1.30 mg/dl 08/25/2020 7:10 EDT [facility] Estimated GFR >60 >60 08/25/2020 7:10 EDT [facility] Comment: EGFR UNITS: mL/min/1.73 m 2 CKD-EPI Equation used to calculate. 08/25/2020 6:09 EDT 08/25/2020 6:44 EDT Rowan Abad NP CHEMISTRY & BLOOD GA S ORDERABLES Performing Organization Address City/[facility]/ZIP Co de Phone Number [facility] [address] [place] [address] * PLATELET COUNT (08/25/2020 6:09 EDT) [facility] PLATELET COUNT - [facility] 326 150 - 450 10 3/uL 08/25/2020 7:02 EDT [facility] 08/25/2020 6:09 EDT 08/25/2020 6:44 EDT [facility] - 08/25/2020 7:06 EDT Comment ENOXAPARIN MONITORING Rowan Abad COIL CONNECTOR REPAIRER HEMATOLOGY & PF4 ORD ERABLES [facility] [address] [place] [address] documented in this encounter Visit Diagnoses Not on filedocumented in this encounter Care Teams Oil And Gas Lease Pumper Relationship Specialty Start Date End Date Katia Stone, MINGO [address] [facility] [place] [facility] [place] [phone] PCP - General 05/02/17 documented as of this encounter
--- OUTSIDE RECORDS SUMMARY | 2023-10-13 22:25 | XMS_ITS | Encounter Summary ---
Author Organization [facility] Address [address] [place] [address] Care Team Providers Care Hydroelectric Plant Operator Name Role Phone Katia Stone PA-C Primary Care Provider +1- [phone] Encounter Details Date Type Department Care Team (Late st Contact Info) Description 08/22/2020 Results Only [facility] [phone] Rowan Abad, TAIWO [address] [place] [phone] Social History Tobacco Use Types Packs/Day [...] Results * MAGNESIUM (08/22/2020 5:30 EDT) Pathologist [facility] Magnesium 1.8 1.8 - 2.4 mg/dl 08/22/2020 6:[address] [facility] 08/22/2020 5:30 EDT 08/22/2020 5:39 EDT Rowan Abad NP CHEMISTRY & BLOOD GA S ORDERABLES [facility] [address] [place] [address] * (ABNORMAL) BASIC METABOLIC PANEL (BMP) (08/22/2020 5:30 EDT) Sodium 133(L) 136 - 145 mEq/L 08/22/2020 6:[address] [facility] Potassium 3.7 3.5 - 5.1 mEq/L 08/22/2020 6:03 [facility] Chloride 101 96 - 107 mEq/L 08/22/2020 6:03 [facility] CO2 Total 26.1 21 - 32 mEq/L 08/22/2020 6:03 [facility] Anion Gap 6.9 mEq/L 08/22/2020 6:03 [facility] BUN 8 7 - 25 mg/dl 08/22/2020 6:03 [facility] Creatinine 0.67(L) 0.70 - 1.30 mg/dl 08/22/2020 6:03 [facility] Estimated GFR >60 >60 08/22/2020 6:03 [facility] Comment: EGFR UNITS: mL/min/1.73 m 2 CKD-EPI Equation used to calculate. Glucose 94 74 - 106 mg/dl 08/22/2020 6:03 [facility] Calcium 8.2(L) 8.5 - 10.1 mg/dl 08/22/2020 6:03 [facility] 08/22/2020 5:30 EDT 08/22/2020 5:39 EDT Rowan Abad NP CHEMISTRY & BLOOD GA S ORDERABLES Performing Organization Address City/State/[facility] Co de Phone Number [facility] [address] [place] [address] * (ABNORMAL) COMPLETE BLOOD COUNT AND DIFFERENTIAL (08/22/2020 5:30 EDT) WBC 6.0 4.0 - 10.5 10 3/uL 08/22/2020 5:56 [facility] RBC 2.84(L) 4.70 - 6.00 10 6/uL 08/22/2020 5:56 [facility] Hemoglobin 10.0(L) 13.5 - 18.0 g/dL 08/22/2020 5:56 [facility] HCT 28.3(L) 42.0 - 52.0 % 08/22/2020 5:56 [facility] MCV 99.6 78 - 100 fL 08/22/2020 5:56 [facility] MCH 35.2(H) 27 - 31 pg 08/22/2020 5:56 [facility] MCHC 35.3 32 - 37 g/dL 08/22/2020 5:56 [facility] RDW-CV - PMC 14.3 <14.7 % 08/22/2020 5:56 [facility] PLATELET COUNT - PMC 209 150 - 450 10 3/uL 08/22/2020 5:56 [facility] MPV 11.7 9.2 - 12.0 fL 08/22/2020 5:56 [facility] NEUTROPHILS % (AUTO) - PMC 58.1 % 08/22/2020 5:56 [facility] LYMPHOCYTES % (AUTO) - PMC 22.9 % 08/22/2020 5:56 [facility] MONOCYTES % (AUTO) - PMC 14.4 % 08/22/2020 5:56 [facility] EOSINOPHILS % (AUTO) - PMC 3.3 NOT ESTABLISHED % 08/22/2020 5:56 [facility] BASOPHILS % (AUTO) - PMC 1.0 % 08/22/2020 5:56 [facility] Immature Granulocyte % (Auto) 0.3 % 08/22/2020 5:56 [facility] NUCLEATED RBC % (AUTO) - PMC 0.0 % 08/22/2020 5:56 [facility] NEUTROPHILS # (AUTO) - PMC 3.5 1.5 - 6.6 10 3/uL 08/22/2020 5:56 [facility] LYMPHOCYTES # (AUTO) - PMC 1.4 1.0 - 3.5 10 3/uL 08/22/2020 5:56 [facility] MONOCYTES # (AUTO) - PMC 0.9 <1.0 10 3/uL 08/22/2020 5:56 [facility] EOSINOPHILS # (AUTO) - PMC 0.2 <0.7 10 3/uL 08/22/2020 5:56 [facility] BASOPHILS # (AUTO) - PMC 0.1 <0.1 10 3/uL 08/22/2020 5:56 [facility] Absolute Immature Granulocyte 0.02 <0.06 10 3/uL 08/22/2020 5:56 [facility] DIFFERENTIAL METHOD Auto Differential 08/22/2020 5:41 [facility] 08/22/2020 5:30 EDT 08/22/2020 5:39 EDT Rowan Abad WHOLESALE ACCOUNT MANAGER PACKAGES & DNA PROBE ORDERABLES [facility] [address] [place] [address] documented in this encounter Visit Diagnoses Not on filedocumented in this encounter Care Teams Hydroelectric Plant Operator Relationship Specialty Start Date End Date Katia Stone, PABijalC [address] [place] [phone] PCP - General 05/02/17 documented as of this encounter
--- OUTSIDE RECORDS SUMMARY | 2023-10-13 22:25 | XMS_ITS | Encounter Summary ---
Author Organization [facility] Address [address] [place] [address] Care Team Providers Care Instructor Creeler Name Role Phone Katia Stone PA-C Primary Care Provider +1- [phone] Encounter Details Date Type Department Care Team (Late st Contact Info) Description 08/09/2020 Results Only Imaging [facility] Radiology Results [address] [place], [place] [address] Ester Valerio MD [address] [place] [address] [place] [address] Social History Tobacco Use Types [...] 16:38 EDT ?[facility]: [facility] ?[address] ?[place] [address] ?Diagnostic Imaging Report ? Signed ? Patient Name:DAVID FARFAN ? Date of :1950 ?MR Number:[id number] ? Age:69 ?Sex:M ? Category: CR ?Date [...] Procedure Note Poncho Erickson MD - [facility]09/[facility] [address] [address] Diagnostic Imaging Report Signed Patient Name:DAVID FARFAN FAccount Number:[id number] Date of :1950 MRNumber:[id number] Age:69 Sex:M Category: CR Date ofExam:08/09/20 Procedure: CR: Abd; 2 ViewsAccession: [id number] Ordering Physician: Ester Valerio MD Patient CC: [...] documented as of this encounter Care Teams Instructor Creeler Relationship Specialty Start Date End Date Katia Stone PA-C [address] [place] [address] PCP - General 05/02/17 documented as of this encounter
--- OUTSIDE RECORDS SUMMARY | 2023-10-13 22:25 | XMS_ITS | Encounter Summary ---
Author Organization [facility] Address [address] [place] [address] Care Team Providers Care Intensive Care Medicine Specialist Name Role Phone Katia Stone PA-C Primary Care Provider +1- [phone] Reason for Visit * Reason Onset Date Comments Other 06/07/[address] Surgery RN Other 06/08/2020 mailed pre-op in structions to patient Encounter Details Date Type Department Care Team (Late st Contact Info) Description 06/07/2020 Telephone [facility] Cardiothoracic Surgery - [facility] [place] [address] [place] [address] Ja Browne MD [address] [place] [phone] Other (questions for CT Surgery RN); [...] EDT Pre-op instructions mailed to patient at: [address] [place] [address] Address updated in [facility]. * Telephone Encounter - Cat Sutherland RN - 06/07/2020 1526 EDT Called and left message for Maru Villalobos RN at [place] [facility] [employer] to get correct address (mailing address) for patient and then have changed in Registration as he doesn't live in [place] anymore. She was going to call us [...] the Division of Cardiothoracic Surgery at the [facility]. We look forward to making [...] located near the Main Entrance of the Digital Forensics Examiner Center at the [facility]. Prior to surgery, you will be scheduled for an anesthesia pre-screen telephone call with the Pre-Operative Department ??? Your telephone call has been scheduled for: To Be Announced between To Be Announced and To Be Announced ??? If you do not receive an appointment for the pre-screen call within two days of this appointment, please contact our office at [phone]. We have included a local lodging list [...] days prior to your surgery. Stop Saw [place] 14 days prior to surgery. ??? Acetaminophen [...] CHANGED, CALL OUR OFFICE RIGHT AWAY AT [phone]) ??? Continue to take all of your [...] clothing. ??? Do not wear any nail ukrainian, makeup, powder, lotion, deodorant or jewelry of [...] results. The Patient Access Center at [facility] will contact you with an appointment [...] AN APPOINTMENT CONTACT THE PATIENT ACCESS CENTERAT [phone]. ??? While waiting for your surgery, you [...] on Level 3 (street level of the [facility]) for this. Following check-in, you will have a chest x-ray done. Following thechest x-ray proceed to the Surgeon's office on Level 5 [facility] Surgery Outpatient office. Note: If for [...] listed below. The Division of Cardiothoracic Surgery [address] [place] [address] (Toll Free) MD Geovanni Toure MD Marek Polomsky, MD Chris Rokkas, MD /josh & ep 03/2020 * Telephone Encounter - Cat Sutherland RN - 06/07/[address] Surgery [place] Maru Villalobos, sde at [facility] [phone] EXT [phone] states patient's son and and is not on Adv Directive now. Questions call Maru Villalobos. Pre-Op Instructions mailed to patient and faxed to Maru [phone]. She will review with the patient and I will as well. Check in time for surgery on 06/26 has not been confirmed yet per our Substation Operator Helper Generation. Maru will set up COVID test as he needs a hyster driver and he will also need a ride to [place] for surgery which she will arrange. * Telephone Encounter - Melania Dumas - 06/07/2020 1013 EDT Maru from [place] calling with questions for CT Surgery RN. Requesting return call to [phone], extension 7. documented in this encounter Plan of Treatment Not on file documented as of this encounter Visit Diagnoses Diagnosis Encounter for preoperative screening laboratory testing for COVID-19 virus- Primary documented in this encounter Care Teams Intensive Care Medicine Specialist Relationship Specialty Start Date End Date Katia Stone, PABijalC [address] [place] [phone] PCP - General 05/02/17 documented as of this encounter
--- OUTSIDE RECORDS SUMMARY | 2023-10-13 22:25 | XMS_ITS | Encounter Summary ---
Author Organization [facility] Address [address] [place] [address] Care Team Providers Care Adjustment Supervisor Name Role Phone Katia Stone PA-C Primary Care Provider +1- [phone] Encounter Details Date Type Department Care Team (Late st Contact Info) Description 08/20/2020 Results Only [facility] [address] [place] [address] Marilyn Hood MD [address] [place] [address] Social History Tobacco Use Types [...] Requests ADD ON DONE 08/20/2020 12:58 EDT [facility] Comment: All tests (see tests in sample comments) have been added as requested. 08/20/2020 12:5 1 EDT 08/20/2020 12:58 EDT Narrative [facility] - 08/20/2020 12:58 EDT today on the med/surg Magnesium Marilyn Hood MD CHEMISTRY & BLO OD GAS ORDERABLES Performing Organization Address City/State/[facility] Co de Phone Number [facility] [address] [place] [address] documented in this encounter Visit Diagnoses Not on filedocumented in this encounter Care Teams Adjustment Supervisor Relationship Specialty Start Date End Date Katia Stone, PABijalC [address] [facility] [place] [place] [phone] PCP - General 05/02/17 documented as of this encounter
--- OUTSIDE RECORDS SUMMARY | 2023-10-13 22:25 | XMS_ITS | Encounter Summary ---
Author Organization [facility] Address [address] [place] [address] Care Team Providers Care Nailer Operator Name Role Phone Katia Stone PA-C Primary Care Provider +1- [phone] Encounter Details Date Type Department Care Team (Late st Contact Info) Description 08/12/[address] [facility] Rheumatology [address] [place] [address] Ester Valerio MD [address] [facility] [address] [place] [phone] Social History Tobacco Use Types Packs/Day Years [...] 1.8 - 2.4 mg/dl 08/12/2020 7:37 EDT [facility] 08/12/2020 6:48 EDT 08/12/2020 7:00 EDT Ester Valerio MD CHEMISTRY & BLOO D GAS ORDERABLES Performing Organization Address City/State/[facility] Co de Phone Number [facility] [address] [place] [address] * (ABNORMAL) BASIC METABOLIC PANEL (BMP) (08/12/2020 6:48 EDT) Sodium 135(L) 136 - 145 mEq/L 08/12/2020 7:37 EDT [facility] Potassium 3.2(L) 3.5 - 5.1 mEq/L 08/12/2020 7:37 EDT [facility] Chloride 101 96 - 107 mEq/L 08/12/2020 7:37 EDT [facility] CO2 Total 28.8 21 - 32 mEq/L 08/12/2020 7:37 [facility] Anion Gap 4.2 mEq/L 08/12/2020 7:37 [facility] BUN 5(L) 7 - 25 mg/dl 08/12/2020 7:37 [facility] Creatinine 0.50(L) 0.70 - 1.30 mg/dl 08/12/2020 7:37 [facility] Estimated GFR >60 >60 08/12/2020 7:37 [facility] Comment: EGFR UNITS: mL/min/1.73 m 2 CKD-EPI Equation used to calculate. Glucose 102 74 - 106 mg/dl 08/12/2020 7:37 [facility] Calcium 7.9(L) 8.5 - 10.1 mg/dl 08/12/2020 7:37 [facility] 08/12/2020 6:48 EDT 08/12/2020 7:00 EDT Ester Valerio MD CHEMISTRY & BLOO D GAS ORDERABLES [facility] [address] [place] [address] * (ABNORMAL) HEPATIC FUNCTION PANEL (ALB,ALK PHOS,ALT,AST,DBIL,TOT BOSSMAN,TOT PROT) (08/12/2020 6:48 EDT) BILIRUBIN - PMC 0.50 0.00 - 1.00 mg/dl 08/12/2020 7:37 [facility] DIRECT BILIRUBIN - PMC 0.20 0.00 - 0.30 mg/dl 08/12/2020 7:37 [facility] INDIRECT BILIRUBIN - PMC 0.30 0.00 - 0.80 mg/dl 08/12/2020 7:37 [facility] AST 31 15 - 37 U/L 08/12/2020 7:37 [facility] ALT 25 16 - 63 U/L 08/12/2020 7:37 [facility] Alkaline Phosphatase 99 46 - 116 U/L 08/12/2020 7:37 EDT [facility] Total Protein 5.9(L) 6.4 - 8.2 g/dl 08/12/2020 7:37 EDT [facility] Albumin 2.2(L) 3.4 - 5.0 g/dl 08/12/2020 7:37 EDT [facility] GLOBULIN - PMC 3.7 g/dl 08/12/2020 7:37 EDT [facility] ALBUMIN/GLOBULIN RATIO - PMC 0.5 08/12/2020 7:37 EDT [facility] 08/12/2020 6:48 EDT 08/12/2020 7:00 EDT Ester Valerio MD CHEMISTRY & BLOO D GAS ORDERABLES [facility] [address] [place] [address] documented in this encounter Visit Diagnoses Not on filedocumented in this encounter Care Teams Nailer Operator Relationship Specialty Start Date End Date Katia Stone, PABijalC [address] [place] [phone] PCP - General 05/02/17 documented as of this encounter
--- OUTSIDE RECORDS SUMMARY | 2023-10-13 22:25 | XMS_ITS | Encounter Summary ---
Author Organization [facility] Address [address] [place] [address] Care Team Providers Care Trust Vault Custodian Name Role Phone Katia Stone PA-C Primary Care Provider +1- [phone] Reason for Visit * Reason Comments Diarrhea Extremity Weakness Alcohol Problem Palliative Care Symptom Management Encounter Details Date Type Department Care Team (Late st Contact Info) Description 08/25/2020 External Contact [facility] Palliative Care [address] [place], [place] [address] Keara Stinson MD [address] [facility] [address] [place] [address] Frailty (Primary Dx); ETOH abuse; [...] chronic ETOH use who was admitted to [facility] with weakness, diarrhea, and regular ETOH [...] be receptive to formal psychotherapy. A bereavement outsole cementer machine through [employer] may be a good fit as well. Re: his advance directive. 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 Present for Visit: Tim, [...] his heart attack and was transferred to [place]. He has had several cardiac issues since. He is originally from [place] and lived in the [place] area until 2018 when his medical issues became more acute. Since then, he has lived in [place] [facility], had lived with his son Tyrese until his and more recently living with Tyrese's partner Whitney. He was raised on a farm in [place] with 7 siblings. He farmed himself, [...] Stinson MD 08/25/2020 16:11 Site of Visit: [facility] I spent a total of 55 [...] specialist documented in this encounter Care Teams Trust Vault Custodian Relationship Specialty Start Date End Date Katia Stone, BELLAC [address] [place] [address] PCP - General 05/02/17 documented as of this encounter
--- OUTSIDE RECORDS SUMMARY | 2023-10-13 22:25 | XMS_ITS | Encounter Summary ---
Author Organization [facility] Address [address] [place] [address] Care Team Providers Care Consulting Hr Professional Name Role Phone Katia Stone PA-C Primary Care Provider +1- [phone] Encounter Details Date Type Department Care Team (Late st Contact Info) Description 08/20/2020 Results Only [facility] [address] [place] [address] Junior Ray MD [address] [place] [address] Social History Tobacco Use Types [...] 1.8 - 2.4 mg/dl 08/20/2020 13:10 EDT [facility] 08/20/2020 6:50 EDT 08/20/2020 6:59 EDT Junior Ray MD CHEMISTRY & BLOOD G ORDERABLES [facility] [address] [place] [address] * (ABNORMAL) BASIC METABOLIC PANEL (BMP) (08/20/2020 6:50 EDT) Sodium 134(L) 136 - 145 mEq/L 08/20/2020 7:27 EDT [facility] Potassium 3.6 3.5 - 5.1 mEq/L 08/20/2020 7:27 [facility] Chloride 100 96 - 107 mEq/L 08/20/2020 7:27 EDT [facility] CO2 Total 28.7 21 - 32 mEq/L 08/20/2020 7:27 T [facility] Anion Gap 5.3 mEq/L 08/20/2020 7:27 [facility] BUN 7 7 - 25 mg/dl 08/20/2020 7:27 [facility] Creatinine 0.48(L) 0.70 - 1.30 mg/dl 08/20/2020 7:27 [facility] Estimated GFR >60 >60 08/20/2020 7:27 [facility] Comment: EGFR UNITS: mL/min/1.73 m 2 CKD-EPI Equation used to calculate. Glucose 91 74 - 106 mg/dl 08/20/2020 7:27 [facility] Calcium 8.3(L) 8.5 - 10.1 mg/dl 08/20/2020 7:27 [facility] 08/20/2020 6:50 EDT 08/20/2020 6:59 EDT Junior Ray MD CHEMISTRY & BLOOD G ORDERABLES [facility] [address] [place] [address] * (ABNORMAL) COMPLETE BLOOD COUNT (08/20/2020 6:50 EDT) WBC 5.8 4.0 - 10.5 10 3/uL 08/20/2020 7:07 [facility] RBC 2.96(L) 4.70 - 6.00 10 6/uL 08/20/2020 7:07 [facility] Hemoglobin 10.5(L) 13.5 - 18.0 g/dL 08/20/2020 7:07 [facility] HCT 29.8(L) 42.0 - 52.0 % 08/20/2020 7:07 [facility] MCV 100.7(H) 78 - 100 fL 08/20/2020 7:07 [facility] MCH 35.5(H) 27 - 31 pg 08/20/2020 7:07 [facility] MCHC 35.2 32 - 37 g/dL 08/20/2020 7:07 [facility] RDW-CV - PMC 14.7 <14.7 % 08/20/2020 7:07 EDT [facility] PLATELET COUNT - PMC 253 150 - 450 10 3/uL 08/20/2020 7:07 T [facility] MPV 10.1 9.2 - 12.0 fL 08/20/2020 7:07 EDT [facility] 08/20/2020 6:50 EDT 08/20/2020 6:59 EDT Junior Ray MD HEMATOLOGY & PF4 OR DERABLES [facility] [address] [place] [address] documented in this encounter Visit Diagnoses Not on filedocumented in this encounter Care Teams Consulting Hr Professional Relationship Specialty Start Date End Date Katia Stone, PABijalC [address] [place] [phone] PCP - General 05/02/17 documented as of this encounter
--- OUTSIDE RECORDS SUMMARY | 2023-10-13 22:25 | XMS_ITS | Encounter Summary ---
Author Organization [facility] Address [address] [place] [address] Care Team Providers Care General Road Production Manager Name Role Phone Katia Stone PA-C Primary Care Provider +1- [phone] Reason for Visit * Reason Onset Date Comments Other 05/16/2020 EKG results Encounter Details Date Type Department Care Team (Late st Contact Info) Description 05/16/2020 Telephone [facility] Cardiothoracic Surgery - [address] [address] Cat Sutherland RN Other (EKG results) Social [...] [phone] I have routed our PA Salvador Roca to see if he wants to repeat on DOSA. documented in this encounter Plan of Treatment Not on file documented as of this encounter Visit Diagnoses Not on filedocumented in this encounter Care Teams General Road Production Manager Relationship Specialty Start Date End Date Katia Stone, PA-C [address] [place] [phone] PCP - General 05/02/17 documented as of this encounter
--- OUTSIDE RECORDS SUMMARY | 2023-10-13 22:25 | XMS_ITS | Encounter Summary ---
Author Organization [facility] Address [address] [place] [address] Care Team Providers Care Blacksmith Farm Name Role Phone Katia Stone PA-C Primary Care Provider +1- [phone] Reason for Visit * Reason Onset Date Comments Appointment Related 06/06/2020 Encounter Details Date Type Department Care Team (Late st Contact Info) Description 06/06/2020 Telephone [facility] Cardiothoracic Surgery - [facility] [address] [place] [address] Ja Browne MD [address] [place] [phone] Appointment Related Social History Tobacco Use [...] Telephone Encounter - Alma Dhillon - 06/06/2020 0372 EDT At her request, I have telephoned Nurse Corn Press Operator[facility] advise of this patient's surgery date. It is Monday 06/26 beginning @ 1:00 pm. This will involve Lorraine Browne and Shakira. I was unable to reach iNla, but left a message requesting her to phone our office, if she had any questions. documented in this encounter Plan of Treatment Not on file documented as of this encounter Visit Diagnoses Not on filedocumented in this encounter Care Teams Blacksmith Farm Relationship Specialty Start Date End Date Katia Stone, BELLAC [address] [place] [phone] PCP - General 05/02/17 documented as of this encounter
--- OUTSIDE RECORDS SUMMARY | 2023-10-13 22:25 | XMS_ITS | Encounter Summary ---
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, initial encounter Procedures XR CHEST 2 VIEWS José Miguel Roca PA-C [address] [place] [phone] Referral ID Status Reason Start Date Expiration Date Visits Re quested Visits Authorized [id number] Closed 05/16/2020 1 1 Reason for Visit * Radiology Services (Routine) - Closed Specialty Diagnoses / Procedures Referred By Jael ho Referred To Contact Diagnoses 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, initial encounter Procedures XR CHEST 2 VIEWS José Miguel Roca PA-C [address] [address] Referral ID Status Reason Start Date Expiration Date Visits Re quested Visits Authorized [id number] Closed 05/16/2020 1 1 Encounter Details Date Type Department Care Team (Latest Contact Info) Description 05/16/2020 10:57 EDT - 05/16/2020 23:59 EDT [facility] Radiology Xray Outpatient - [address] [address] 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, [...] encounter documented in this encounter Care Teams Special Procedures Nurse Relationship Specialty Start Date End Date Katia Stone PA-C [address] [place] [phone] PCP - General 05/02/17 documented as of this encounter
--- OUTSIDE RECORDS SUMMARY | 2023-10-13 22:25 | XMS_ITS | Encounter Summary ---
Author Organization [facility] Address [address] [place] [address] Care Team Providers Care Freight Receiver Name Role Phone Katia Stone PA-C Primary Care Provider +1- [phone] Reason for Visit * Reason Onset Date Comments Labs Only 05/17/2020 Lab orders for p re-op blood work Encounter Details Date Type Department Care Team (Late st Contact Info) Description 05/17/2020 Telephone [facility] Cardiothoracic Surgery - [facility] [address] [place] [address] Ja Browne MD [address] [place] [phone] Labs Only (Lab orders for pre-op [...] note of 05/16. Explained again to Nila Beaming Inspector. * Telephone Encounter - Melania Dumas - 05/17/2020 1044 EDT Nila (piling setter from [place]) calling to find out if patient's lab orders were faxed to [place]. Per Nila, patient did not have his blood drawn while here at [facility] on 05/16/2020. Paper Bundler explained to caller that patients are usually unable to have pre-op blood bank done at any other facility but freelance copywriter will defer to CT Surgery RN. Nila requesting return call to [phone], extension: 7. documented in this encounter Plan of Treatment Not on file documented as of this encounter Visit Diagnoses Not on filedocumented in this encounter Care Teams Freight Receiver Relationship Specialty Start Date End Date Katia Stone, BELLAC [address] [place] [phone] PCP - General 05/02/17 documented as of this encounter
--- OUTSIDE RECORDS SUMMARY | 2023-10-13 22:25 | XMS_ITS | Encounter Summary ---
Author Organization [facility] Address [address] [place] [address] Care Team Providers Care Semiconductor Processing Group Leader Name Role Phone Katia Stone PA-C Primary Care Provider +1- [phone] Reason for Visit * Reason Onset Date Comments Other 05/19/2020 Encounter Details Date Type Department Care Team (Late st Contact Info) Description 05/19/2020 Telephone [facility] Cardiothoracic Surgery - [facility] [address] [place] [address] Ja Browne MD [address] [place] [phone] Other Social History Tobacco Use Types [...] CT Surgery Update Patient showed up at [facility] for his CBC and the wharf laborer turned him away as the patient said I'll wait and have it done in [place] when I have the other blood test done. The otherblood test needed is on the day of surgery for a Pre-Op Blood Draw (type and screen). I called the lab and spoke with a Desi and she will place a note in the system so that they don't turn him away again. I asked them to call our office at [phone] if there are any questions when the patient arrives. He must have the CBC prior to surgery. I called Nila the CM at his Proivder's office and reviewed above with her. She will call the patientas she works closely with him. P) CBC at [place] [facility]. Call CT Surgery WHILE PATIENT IS THERE IF ANY QUESTIONS. * Telephone Encounter - Alma Dhillon - 05/19/2020 1244 EDT Please call foster care case manager at PCP Office, Nila. Patient went to [facility] to have pre-op blood draw, as he was directed. [place] [facility] saw the order for blood bank draw, and would not draw any bloodwork for the patient. documented in this encounter Plan of Treatment Not on file documented as of this encounter Visit Diagnoses Not on filedocumented in this encounter Care Teams Semiconductor Processing Group Leader Relationship Specialty Start Date End Date Katia Stone, MINGO [address] [place] [phone] PCP - General 05/02/17 documented as of this encounter
--- OUTSIDE RECORDS SUMMARY | 2023-10-13 22:25 | XMS_ITS | Encounter Summary ---
Author Organization [facility] Address [address] [place] [address] Care Team Providers Care Grade Teacher Name Role Phone Katia Stone PA-C Primary Care Provider +1- [phone] Reason for Visit * Reason Onset Date Comments Confirmation 05/08/2020 Encounter Details Date Type Department Care Team (Late st Contact Info) Description 05/08/2020 Telephone [facility] Cardiothoracic Surgery - [facility] [address] [place] [address] Ja Browne MD [address] [place] [phone] Confirmation Social History Tobacco Use Types [...] 05/08/2020 1128 EST Spoke with Walker higgins [place] and confirmed patient's appointment with Dr. Browne for 05/16/2020 at 9:30 am. documented in this encounter Plan of Treatment Not on file documented as of this encounter Visit Diagnoses Not on filedocumented in this encounter Care Teams Grade Teacher Relationship Specialty Start Date End Date Katia Stone, PABijalC [address] [place] [phone] PCP - General 05/02/17 documented as of this encounter
--- OUTSIDE RECORDS SUMMARY | 2023-10-13 22:25 | XMS_ITS | Encounter Summary ---
Author Organization [facility] Address [address] [place] [address] Care Team Providers Care Playroom Attendant Name Role Phone Katia Stone PA-C Primary Care Provider +1- [phone] Encounter Details Date Type Department Care Team (Late st Contact Info) Description 08/25/2020 Lab Requisition [facility] Pathology & Laboratory Medicine - [address] [address] Outr Resulting Lab, Provider Social History Tobacco [...] Few Usual skin jesi 08/27/2020 15:22 EDT [facility] Smear Few Neutrophils Present(A) 08/27/2020 15:22 EDT [facility] Smear No bacteria seen(A) 08/27/2020 15:22 EDT [facility] Swab ENTIRE UPPER LIMB / Unknown 08/25/2020 14:15 EDT 08/25/2020 21:17 EDT Provider Outr Resulting Lab MICROBIOLOGY - GENERAL ORDERABLES [facility] [address] [place] [address] documented in this encounter Visit Diagnoses Not on filedocumented in this encounter Additional Health Concerns Infection Onset Date Last Indicated Resolved Time RSV 01/31/2022 01/31/2022 02/10/2022 22:1 5 EST documented as of this encounter Care Teams Playroom Attendant Relationship Specialty Start Date End Date Katia Stone, PABijalC [address] [facility] [place] [phone] PCP - General 05/02/17 documented as of this encounter
--- OUTSIDE RECORDS SUMMARY | 2023-10-13 22:25 | XMS_ITS | Encounter Summary ---
Author Organization [facility] Address [address] [place] [address] Care Team Providers Care E Commerce Strategist Name Role Phone Katia Stone PA-C Primary Care Provider +1- [phone] Encounter Details Date Type Department Care Team (Late st Contact Info) Description 08/08/2020 Results Only [facility] [address] [place] [address] Tony Christy MD [address] [place] [address] Social History Tobacco Use Types [...] 4.0 - 10.5 10 3/uL 08/08/2020 20:51 [facility] RBC 3.15(L) 4.70 - 6.00 10 6/uL 08/08/2020 20:51 [facility] Hemoglobin 11.3(L) 13.5 - 18.0 g/dL 08/08/2020 20:51 [facility] HCT 31.4(L) 42.0 - 52.0 % 08/08/2020 20:51 [facility] MCV 99.7 78 - 100 fL 08/08/2020 20:51 [facility] MCH 35.9(H) 27 - 31 pg 08/08/2020 20:51 [facility] MCHC 36.0 32 - 37 g/dL 08/08/2020 20:51 [facility] RDW-CV - PMC 13.8 <14.7 % 08/08/2020 20:51 [facility] PLATELET COUNT - PMC 199 150 - 450 10 3/uL 08/08/2020 20:51 [facility] MPV 11.2 9.2 - 12.0 fL 08/08/2020 20:51 [facility] NEUTROPHILS % (AUTO) - PMC 81.3 % 08/08/2020 20:51 [facility] LYMPHOCYTES % (AUTO) - PMC 8.6 % 08/08/2020 20:51 [facility] MONOCYTES % (AUTO) - PMC 9.5 % 08/08/2020 20:51 [facility] EOSINOPHILS % (AUTO) - PMC 0.0 % 08/08/2020 20:51 [facility] BASOPHILS % (AUTO) - PMC 0.1 % 08/08/2020 20:51 [facility] Immature Granulocyte % (Auto) 0.5 % 08/08/2020 20:51 [facility] NUCLEATED RBC % (AUTO) - PMC 0.0 % 08/08/2020 20:51 [facility] NEUTROPHILS # (AUTO) - PMC 6.1 1.5 - 6.6 10 3/uL 08/08/2020 20:51 [facility] LYMPHOCYTES # (AUTO) - PMC 0.7(L) 1.0 - 3.5 10 3/uL 08/08/2020 20:51 [facility] MONOCYTES # (AUTO) - PMC 0.7 <1.0 10 3/uL 08/08/2020 20:51 [facility] EOSINOPHILS # (AUTO) - PMC 0.0 <0.7 10 3/uL 08/08/2020 20:51 [facility] Absolute Immature Granulocyte 0.04 <0.06 10 3/uL 08/08/2020 20:51 [facility] DIFFERENTIAL METHOD Auto Differential 08/08/2020 20:48 [facility] 08/08/2020 20:4 2 EDT 08/08/2020 20:46 EDT Tony Christy MD PACKAGES & DNA PRO BE ORDERABLES [facility] [address] [place] [address] * CORONAVIRUS COVID-19 PCR ([facility]) (08/08/2020 17:07 EDT) 08/08/2020 17:0 7 EDT 08/08/2020 17:11 EDT Comment:SWAB Narrative [facility] - 08/08/2020 18:36 EDT ----- ------- ?? RUN DATE: 08/08/20 ? [facility]: [facility] *LIVE* ? PAGE 1 ? RUN TIME: 1837 ?Specimen Inquiry ? ----- ------- ?? PATIENT: DAVID FARFAN ? ACCT: [id number] LOC: ??ED ? U: [id number] ? AGE/SX: 69/M ? ROOM: ?RE08/08/20 ?? REG DR: ??Tony Christy MD ?: ?1950 ?? BED: ? DIS: ? STATUS: REG ER ? TLOC: ? ----- ------- ? SPEC #: [id number] ?ALEX: 08/08/20 ? STATUS: ??COMP ? REQ #: [id number] ?RECD: 08/08/20 ? SUBM DR: Tony Christy [...] terminated or revoked sooner. ?Testing performed on [employer] instrument ? ----- ------- ? END OF REPORT ? Tony Christy MD MICROBIOLOGY - GEN ERAL ORDERABLES Performing Organization Address [facility] Co de Phone Number [facility] [address] [place] [address] * (ABNORMAL) BNP - PMC (08/08/2020 16:47 EDT) [facility] B-TYPE NATRIURETIC PEPTIDE - PMC 398(H) <100 pg/mL 08/08/2020 17:[address] [facility] 08/08/2020 16:4 7 EDT 08/08/2020 16:52 EDT Tony Christy MD CHEMISTRY & BLOOD GAS ORDERABLES Performing Organization Address [facility] de Phone Number [facility] [address] [place] [address] * TROPONIN I (08/08/2020 16:47 EDT) [facility] Troponin I (ng/mL) <0.050 0 - 0.056 ng/ml 08/08/2020 17:[address] [facility] Comment: Interpretation: The cutoff for [...] & BLOOD GAS ORDERABLES Performing Organization Address [facility] Co de Phone Number [facility] [address] [place] [address] * (ABNORMAL) COMPREHENSIVE METABOLIC PANEL (CMP) (08/08/2020 16:47 EDT) [facility] Sodium 125(L) 136 - 145 mEq/L 08/08/2020 17:29 [facility] Potassium 2.9(L) 3.5 - 5.1 mEq/L 08/08/2020 17:29 [facility] Chloride 85(L) 96 - 107 mEq/L 08/08/2020 17:29 [facility] CO2 Total 26.2 21 - 32 mEq/L 08/08/2020 17:29 [facility] Anion Gap 13.8 mEq/L 08/08/2020 17:29 [facility] BUN 8 7 - 25 mg/dl 08/08/2020 17:29 [facility] Creatinine 0.67(L) 0.70 - 1.30 mg/dl 08/08/2020 17:29 [facility] Estimated GFR >60 >60 08/08/2020 17:29 [facility] Comment: EGFR UNITS: mL/min/1.73 m 2 CKD-EPI Equation used to calculate. Glucose 101 74 - 106 mg/dl 08/08/2020 17:29 [facility] Calcium 8.5 8.5 - 10.1 mg/dl 08/08/2020 17:29 [facility] CALCIUM,CORRECTE D - PMC 9.3 8.5 - 10.5 mg/dl 08/08/2020 17:29 [facility] BILIRUBIN - PMC 1.60(H) 0.00 - 1.00 mg/dl 08/08/2020 17:29 [facility] AST 90(H) 15 - 37 U/L 08/08/2020 17:29 [facility] ALT 62 16 - 63 U/L 08/08/2020 17:29 [facility] Alkaline Phosphatase 133(H) 46 - 116 U/L 08/08/2020 17:29 [facility] Total Protein 7.6 6.4 - 8.2 g/dl 08/08/2020 17:29 [facility] Albumin 3.0(L) 3.4 - 5.0 g/dl 08/08/2020 17:29 [facility] GLOBULIN - PMC 4.6 g/dl 08/08/2020 17:29 [facility] ALBUMIN/GLOBULIN RATIO - PMC 0.6 08/08/2020 17:29 [facility] 08/08/2020 16:4 7 EDT 08/08/2020 16:52 EDT Tony Christy MD CHEMISTRY & BLOOD GAS ORDERABLES [facility] [address] [place] [address] * (ABNORMAL) COMPLETE BLOOD COUNT AND DIFFERENTIAL (08/08/2020 16:47 EDT) WBC 7.3 4.0 - 10.5 10 3/uL 08/08/2020 17:14 [facility] RBC 3.32(L) 4.70 - 6.00 10 6/uL 08/08/2020 17:14 [facility] Hemoglobin 11.8(L) 13.5 - 18.0 g/dL 08/08/2020 17:14 [facility] HCT 32.9(L) 42.0 - 52.0 % 08/08/2020 17:14 [facility] MCV 99.1 78 - 100 fL 08/08/2020 17:14 [facility] MCH 35.5(H) 27 - 31 pg 08/08/2020 17:14 [facility] MCHC 35.9 32 - 37 g/dL 08/08/2020 17:14 [facility] RDW-CV - PMC 13.7 <14.7 % 08/08/2020 17:14 [facility] PLATELET COUNT - PMC 209 150 - 450 10 3/uL 08/08/2020 17:14 [facility] MPV 11.4 9.2 - 12.0 fL 08/08/2020 17:14 [facility] NEUTROPHILS % (AUTO) - PMC 81.9 % 08/08/2020 17:14 [facility] LYMPHOCYTES % (AUTO) - PMC 9.1 % 08/08/2020 17:14 [facility] MONOCYTES % (AUTO) - PMC 8.3 % 08/08/2020 17:14 [facility] EOSINOPHILS % (AUTO) - PMC 0.0 % 08/08/2020 17:14 [facility] BASOPHILS % (AUTO) - PMC 0.1 % 08/08/2020 17:14 [facility] Immature Granulocyte % (Auto) 0.6 % 08/08/2020 17:14 [facility] NUCLEATED RBC % (AUTO) - PMC 0.0 % 08/08/2020 17:14 [facility] NEUTROPHILS # (AUTO) - PMC 5.9 1.5 - 6.6 10 3/uL 08/08/2020 17:14 [facility] LYMPHOCYTES # (AUTO) - PMC 0.7(L) 1.0 - 3.5 10 3/uL 08/08/2020 17:14 [facility] MONOCYTES # (AUTO) - PMC 0.6 <1.0 10 3/uL 08/08/2020 17:14 [facility] EOSINOPHILS # (AUTO) - PMC 0.0 <0.7 10 3/uL 08/08/2020 17:14 [facility] Absolute Immature Granulocyte 0.04 <0.06 10 3/uL 08/08/2020 17:14 [facility] DIFFERENTIAL METHOD Auto Differential 08/08/2020 16:54 [facility] 08/08/2020 16:4 7 EDT 08/08/2020 16:52 EDT Tony Christy MD PACKAGES & DNA PRO BE ORDERABLES [facility] [address] [place] [address] documented in this encounter Visit Diagnoses Not on filedocumented in this encounter Care Teams E Commerce Strategist Relationship Specialty Start Date End Date Katia Stone, MINGO [address] [place] [address] PCP - General 05/02/17 documented as of this encounter
--- OUTSIDE RECORDS SUMMARY | 2023-10-13 22:25 | XMS_ITS | Encounter Summary ---
Author Organization [facility] Address [address] [place] [address] Care Team Providers Care Carbonation Equipment Tender Name Role Phone Katia Stone PA-C Primary Care Provider +1- [phone] Reason for Visit * Reason Onset Date Comments Other 06/21/2020 patient wants to cancel surgery Encounter Details Date Type Department Care Team (Late st Contact Info) Description 06/21/2020 Telephone [facility] Cardiothoracic Surgery - [facility] [address] [place] [address] Ja Browne MD [address] [place], [place] [phone] Other (patient wants to cancel surgery) Social [...] with (Whitney). Pt was called by his Van Driver Helper on 06/21 x 2 and finally Maru Villalobos the Van Driver Helper sent the State Police to his house per Maru to do a welfare check as he doesn't follow instructions or return calls per Maru. He didn't go fora covid test and the ride was set up for him by Maru Van Driver Helper and he cancelled it. He states [...] Melania Dumas - 06/21/2020 1350 EDT Nila (Flavor Maker) from [facility] calling to advise that patient wants to cancel surgery on Friday06/26/2020 as he believes he has pneumonia. Per Nila, patient has not been seen by anyone and declinedcalling ambulance to take him to ED. documented in this encounter Plan of Treatment Not on file documented as of this encounter Visit Diagnoses Not on filedocumented in this encounter Care Teams Carbonation Equipment Tender Relationship Specialty Start Date End Date Katia Stone, MINGO [address] [place] [phone] PCP - General 05/02/17 documented as of this encounter
--- OUTSIDE RECORDS SUMMARY | 2023-10-13 22:25 | XMS_ITS | Encounter Summary ---
Author Organization [facility] Address [address] [place] [address] Care Team Providers Care Developer Automatic Name Role Phone Katia Stone PA-C Primary Care Provider +1- [phone] Encounter Details Date Type Department Care Team (Late st Contact Info) Description 08/13/2020 Lab Requisition [facility] Pathology & Laboratory Medicine - [address] [address] Outr Resulting Lab, Provider Social History Tobacco [...] Salmonella PCR Negative Negative 08/13/2020 19:51 EDT [facility] Shigella/Enteroin vasive E. coli Negative Negative 08/13/2020 19:51 EDT [facility] HN LAB CAMPYLOBACTER PCR Negative Negative 08/13/2020 19:51 EDT [facility] Shiga Toxin PCR Negative Negative 19:51 EDT [facility] Feces SPECIMEN FROM RECTUM / Unknown 08/11/2020 14:50 EDT 08/13/2020 15:22 EDT Provider Outr Resulting Lab MICROBIOLOGY - GENERAL ORDERABLES [facility] [address] [place] [address] documented in this encounter Visit Diagnoses Not on filedocumented in this encounter Additional Health Concerns Infection Onset Date Last Indicated Resolved Time RSV 01/31/2022 01/31/2022 02/10/2022 22:1 5 EST documented as of this encounter Care Teams Developer Automatic Relationship Specialty Start Date End Date Katia Stone, PABijalC [address] [place] [phone] PCP - General 05/02/17 documented as of this encounter
--- OUTSIDE RECORDS SUMMARY | 2023-10-13 22:25 | XMS_ITS | Encounter Summary ---
Author Organization [facility] Address [address] [place] [address] Care Team Providers Care Caustic Strength Inspector Name Role Phone Katia Stone PA-C Primary Care Provider +1- [phone] Encounter Details Date Type Department Care Team (Late st Contact Info) Description 08/13/2020 Lab Requisition [facility] Pathology & Laboratory Medicine - [address] [address] Outr Resulting Lab, Provider Social History Tobacco [...] ova and parasites seen. 08/14/2020 11:44 EDT [facility] Feces SPECIMEN FROM RECTUM / Unknown 08/11/2020 14:50 EDT 08/13/2020 15:22 EDT Narrative [facility] - 08/14/2020 11:44 EDT (If Cryptosporidium, Cyclospora, or Microsporidium are suspected, specific tests must be requested.) Single negative specimen does not rule out the possibility of a parasitic infection. Provider Outr Resulting Lab MICROBIOLOGY - GENERAL ORDERABLES [facility] [address] [place] [address] documented in this encounter Visit Diagnoses Not on filedocumented in this encounter Additional Health Concerns Infection Onset Date Last Indicated Resolved Time RSV 01/31/2022 01/31/2022 02/10/2022 22:1 5 EST documented as of this encounter Care Teams Caustic Strength Inspector Relationship Specialty Start Date End Date Katia Stone, PABijalC [address] [place] [phone] PCP - General 05/02/17 documented as of this encounter
--- OUTSIDE RECORDS SUMMARY | 2023-10-13 22:25 | XMS_ITS | Encounter Summary ---
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, initial encounter Procedures XR CHEST 2 VIEWS José Miguel Roca PA-C [address] [facility], [facility] [address] [place] [address] Referral ID Status Reason Start Date Expiration Date Visits Re quested Visits Authorized [id number] Closed 05/16/2020 1 1 Reason for Visit [...] Rosenberg MD [address] [place] [address] Ja Browne MD [address] [place], [place] [address] [address] [address] Referral ID Status Reason Start Date Expiration Date Visits Re quested Visits Authorized [id number] Closed 1 1 Encounter Details Date Type Department Care Team (Latest Contact Info) Description 05/16/2020 9:30 EDT Office Visit [facility] Cardiothoracic Surgery - [address] [place] [address] Ja Browne MD [address] [place] [address] Displacement of electrode lead of [...] located near the Main Entrance of the [facility] at the [facility]. Due to COVID, there is no [...] this appointment please contact our office at [phone]. We have included a local lodging list should you or your family require accommodations around the time of your surgery. Discounts may apply for family members of patients being hospitalized, please ask the hotel when booking. If you have cancer, you and your family member are eligible to stay at the [employer] [facility] [place]. The Oncology Patient Navigator can be reached at [phone] for assistance with this. You should receive [...] days prior to your surgery. Stop Saw [place] 14 days prior to surgery. ??? Acetaminophen [...] IF THIS CHANGES, CALL OUR OFFICE AT [phone]. Continue to take all of your other [...] helpful. ??? Do not wear any nail tajik, makeup, powder, lotion, deodorant or jewelry of [...] them with an appointment contact them at [phone] as the test MUST BE DONE 72 [...] to the Surgeon's office on Level [address] [facility] Outpatient office. Note: If for [...] listed below. The Division of Cardiothoracic Surgery [address] [place] [phone] (Toll Free) MD Geovanni Toure MD Marek [...] file Gets together: Not on file Attends lutheran service: Not on file Active member of [...] Thank you. Ja Browne MD Cardiothoracic Surgery [phone] (office) 05/16/2020 10:36 * Cat Sutherland RN - 05/16/2020 0969 EDT Cardiac Surgery Nursing Pre-Operative Teaching ELECTIVES [...] pleural calcifications are redemonstrated. Procedure Note Zia Albreto MD - 05/16/2020 XR CHEST 2 VIEWS [...] daily. added in this encounter Care Teams Job Recruiter Relationship Specialty Start Date End Date Katia Stone PA-C [address] [place] [phone] PCP - General 05/02/17 documented as of this encounter
--- OUTSIDE RECORDS SUMMARY | 2023-10-13 22:25 | XMS_ITS | Encounter Summary ---
Author Organization [facility] Address [address] [place] [address] Care Team Providers Care Lieutenant Shift Supervisor Name Role Phone Katia Stone PA-C Primary Care Provider +1- [phone] Encounter Details Date Type Department Care Team (Late st Contact Info) Description 08/18/2020 Results Only [facility] [address] [place] [address] Junior Ray MD [address] [place] [address] Social History Tobacco Use Types [...] 138 136 - 145 mEq/L 08/18/2020 5:47 [facility] Potassium 3.3(L) 3.5 - 5.1 mEq/L 08/18/2020 5:47 [facility] Chloride 101 96 - 107 mEq/L 08/18/2020 5:47 [facility] CO2 Total 31.3 21 - 32 mEq/L 08/18/2020 5:47 [facility] Anion Gap 5.7 mEq/L 08/18/2020 5:47 [facility] BUN 9 7 - 25 mg/dl 08/18/2020 5:47 [facility] Creatinine 0.66(L) 0.70 - 1.30 mg/dl 08/18/2020 5:47 [facility] Estimated GFR >60 >60 08/18/2020 5:47 [facility] Comment: EGFR UNITS: mL/min/1.73 m 2 CKD-EPI Equation used to calculate. Glucose 86 74 - 106 mg/dl 08/18/2020 5:47 [facility] Calcium 8.0(L) 8.5 - 10.1 mg/dl 08/18/2020 5:47 [facility] 08/18/2020 5:15 EDT 08/18/2020 5:27 EDT Junior Ray MD CHEMISTRY & BLOOD G ORDERABLES Performing Organization Address City/[facility]/ZIP Co de Phone Number [facility] [address] [place] [address] * (ABNORMAL) COMPLETE BLOOD COUNT (08/18/2020 5:15 EDT) WBC 5.2 4.0 - 10.5 10 3/uL 08/18/2020 5:41 [facility] RBC 2.68(L) 4.70 - 6.00 10 6/uL 08/18/2020 5:41 [facility] Hemoglobin 9.4(L) 13.5 - 18.0 g/dL 08/18/2020 5:41 [facility] HCT 27.5(L) 42.0 - 52.0 % 08/18/2020 5:41 [facility] MCV 102.6(H) 78 - 100 fL 08/18/2020 5:41 [facility] MCH 35.1(H) 27 - 31 pg 08/18/2020 5:41 [facility] MCHC 34.2 32 - 37 g/dL 08/18/2020 5:41 [facility] RDW-CV - PMC 15.2(H) <14.7 % 08/18/2020 5:41 [facility] PLATELET COUNT - PMC 233 150 - 450 10 3/uL 08/18/2020 5:41 [facility] MPV 10.3 9.2 - 12.0 fL 08/18/2020 5:41 [facility] 08/18/2020 5:15 EDT 08/18/2020 5:27 EDT Junior Ray MD HEMATOLOGY & PF4 OR DERABLES Performing Organization Address City/[facility]/ZIP Co de Phone Number [facility] [address] [place] [address] documented in this encounter Visit Diagnoses Not on filedocumented in this encounter Care Teams Lieutenant Shift Supervisor Relationship Specialty Start Date End Date Katia Stone, PABijalC [address] [place] [phone] PCP - General 05/02/17 documented as of this encounter
--- OUTSIDE RECORDS SUMMARY | 2023-10-13 22:25 | XMS_ITS | Encounter Summary ---
Author Organization [facility] Address [address] [place] [address] Care Team Providers Care Community Service Organization Director Name Role Phone Katia Stone PA-C Primary Care Provider +1- [phone] Encounter Details Date Type Department Care Team (Late st Contact Info) Description 08/11/2020 Results Only [facility] Rhe[facility] [address] [place] [address] Ester Valerio MD [address] [facility] [address] [place] [phone] Social History Tobacco Use Types Packs/Day Years [...] 1.8 - 2.4 mg/dl 08/11/2020 6:07 EDT [facility] 08/11/2020 5:25 EDT 08/11/2020 5:39 EDT Ester Valerio MD CHEMISTRY & BLOO D GAS ORDERABLES Performing Organization Address City/State/[facility] Co de Phone Number [facility] [address] [place] [address] * (ABNORMAL) BASIC METABOLIC PANEL (BMP) (08/11/2020 5:25 EDT) Sodium 132(L) 136 - 145 mEq/L 08/11/2020 6:07 EDT [facility] Potassium 3.5 3.5 - 5.1 mEq/L 08/11/2020 6:07 T [facility] Chloride 99 96 - 107 mEq/L 08/11/2020 6:07 EDT [facility] CO2 Total 28.6 21 - 32 mEq/L 08/11/2020 6:07 [facility] Anion Gap 4.4 mEq/L 08/11/2020 6:07 [facility] BUN 5(L) 7 - 25 mg/dl 08/11/2020 6:07 [facility] Creatinine 0.51(L) 0.70 - 1.30 mg/dl 08/11/2020 6:07 [facility] Estimated GFR >60 >60 08/11/2020 6:07 [facility] Comment: EGFR UNITS: mL/min/1.73 m 2 CKD-EPI Equation used to calculate. Glucose 112(H) 74 - 106 mg/dl 08/11/2020 6:07 [facility] Calcium 7.7(L) 8.5 - 10.1 mg/dl 08/11/2020 6:07 [facility] 08/11/2020 5:25 EDT 08/11/2020 5:39 EDT Ester Valerio MD CHEMISTRY & BLOO D GAS ORDERABLES [facility] [address] [place] [address] * (ABNORMAL) HEPATIC FUNCTION PANEL (ALB,ALK PHOS,ALT,AST,DBIL,TOT BOSSMAN,TOT PROT) (08/11/2020 5:25 EDT) BILIRUBIN - PMC 0.70 0.00 - 1.00 mg/dl 08/11/2020 6:07 [facility] DIRECT BILIRUBIN - PMC 0.30 0.00 - 0.30 mg/dl 08/11/2020 6:07 [facility] INDIRECT BILIRUBIN - PMC 0.40 0.00 - 0.80 mg/dl 08/11/2020 6:07 [facility] AST 39(H) 15 - 37 U/L 08/11/2020 6:07 [facility] ALT 30 16 - 63 U/L 08/11/2020 6:07 [facility] Alkaline Phosphatase 95 46 - 116 U/L 08/11/2020 6:07 EDT [facility] Total Protein 6.1(L) 6.4 - 8.2 g/dl 08/11/2020 6:07 T [facility] Albumin 2.2(L) 3.4 - 5.0 g/dl 08/11/2020 6:07 EDT [facility] GLOBULIN - PMC 3.9 g/dl 08/11/2020 6:07 EDT [facility] ALBUMIN/GLOBULIN RATIO - PMC 0.5 08/11/2020 6:07 EDT [facility] 08/11/2020 5:25 EDT 08/11/2020 5:39 EDT Ester Valerio MD CHEMISTRY & BLOO D GAS ORDERABLES [facility] [address] [place] [address] documented in this encounter Visit Diagnoses Not on filedocumented in this encounter Care Teams Community Service Organization Director Relationship Specialty Start Date End Date Katia Stone, BELLAC [address] [place] [phone] PCP - General 05/02/17 documented as of this encounter
--- OUTSIDE RECORDS SUMMARY | 2023-10-13 22:25 | XMS_ITS | Encounter Summary ---
Author Organization [facility] Address [address] [place] [address] Care Team Providers Care Flash Welder Name Role Phone Katia Stone PA-C Primary Care Provider +1- [phone] Reason for Visit * Reason Onset Date Comments Appointment Related 05/04/2020 Encounter Details Date Type Department Care Team (Late st Contact Info) Description 05/04/2020 Telephone [facility] Cardiothoracic Surgery - [facility] [address] [place] [address] Ja Browne MD [address] [place] [phone] Appointment Related Social History Tobacco Use [...] - 05/10/2020 0953 EST Medical records from [facility] received, scanned and book marked for patient's [...] 05/08/2020, at 10:30 am. Fax out to [facility] and [facility] to request patient's Discharge Summary from recent hospitalization, as well as diagnostic testing, EKG, labs, etc. Await response. documented in this encounter Plan of Treatment Not on file documented as of this encounter Visit Diagnoses Not on filedocumented in this encounter Care Teams Flash Welder Relationship Specialty Start Date End Date Katia Stone, MINGO [address] [place] [phone] PCP - General 05/02/17 documented as of this encounter
--- OUTSIDE RECORDS SUMMARY | 2023-10-13 22:25 | XMS_ITS | Encounter Summary ---
Author Organization [facility] Address [address] [place] [address] Care Team Providers Care Director Integrated Name Role Phone Katia Stone PA-C Primary Care Provider +1- [phone] Encounter Details Date Type Department Care Team (Late st Contact Info) Description 08/09/2020 Results Only [facility] Dermatology - [facility] [place] [address] [place] [address] Virginia Quintana MD [address] [place] [address] Social History Tobacco Use Types Packs/Day Years [...] 128(L) 136 - 145 mEq/L 08/09/2020 6:09 [facility] Potassium 3.3(L) 3.5 - 5.1 mEq/L 08/09/2020 6:09 [facility] Chloride 90(L) 96 - 107 mEq/L 08/09/2020 6:09 [facility] CO2 Total 27.4 21 - 32 mEq/L 08/09/2020 6:09 [facility] Anion Gap 10.6 mEq/L 08/09/2020 6:09 [facility] BUN 11 7 - 25 mg/dl 08/09/2020 6:09 [facility] Creatinine 0.71 0.70 - 1.30 mg/dl 08/09/2020 6:09 [facility] Estimated GFR >60 >60 08/09/2020 6:09 [facility] Comment: EGFR UNITS: mL/min/1.73 m 2 CKD-EPI Equation used to calculate. Glucose 117(H) 74 - 106 mg/dl 08/09/2020 6:09 [facility] Calcium 8.3(L) 8.5 - 10.1 mg/dl 08/09/2020 6:09 [facility] CALCIUM,CORRECTE D - PMC 9.4 8.5 - 10.5 mg/dl 08/09/2020 6:24 [facility] BILIRUBIN - PMC 1.30(H) 0.00 - 1.00 mg/dl 08/09/2020 6:24 [facility] AST 62(H) 15 - 37 U/L 08/09/2020 6:24 [facility] ALT 46 16 - 63 U/L 08/09/2020 6:24 [facility] Alkaline Phosphatase 114 46 - 116 U/L 08/09/2020 6:24 [facility] Total Protein 6.7 6.4 - 8.2 g/dl 08/09/2020 6:24 [facility] Albumin 2.6(L) 3.4 - 5.0 g/dl 08/09/2020 6:24 [facility] GLOBULIN - PMC 4.1 g/dl 08/09/2020 6:24 [facility] ALBUMIN/GLOBULIN RATIO - PMC 0.6 08/09/2020 6:24 [facility] 08/09/2020 5:35 EDT 08/09/2020 5:44 EDT Virginia Quintana MD CHEMISTRY & BLOOD GA S ORDERABLES [facility] [address] [place] [address] * (ABNORMAL) COMPLETE BLOOD COUNT AND DIFFERENTIAL (08/09/2020 5:35 EDT) WBC 10.3 4.0 - 10.5 10 3/uL 08/09/2020 6:00 [facility] RBC 2.98(L) 4.70 - 6.00 10 6/uL 08/09/2020 6:00 [facility] Hemoglobin 10.6(L) 13.5 - 18.0 g/dL 08/09/2020 6:00 [facility] HCT 29.6(L) 42.0 - 52.0 % 08/09/2020 6:00 [facility] MCV 99.3 78 - 100 fL 08/09/2020 6:00 [facility] MCH 35.6(H) 27 - 31 pg 08/09/2020 6:00 [facility] MCHC 35.8 32 - 37 g/dL 08/09/2020 6:00 [facility] RDW-CV - PMC 13.8 <14.7 % 08/09/2020 6:00 [facility] PLATELET COUNT - PMC 179 150 - 450 10 3/uL 08/09/2020 6:00 [facility] MPV 11.6 9.2 - 12.0 fL 08/09/2020 6:00 [facility] NEUTROPHILS % (AUTO) - PMC 84.2 % 08/09/2020 6:00 [facility] LYMPHOCYTES % (AUTO) - PMC 7.2 % 08/09/2020 6:00 [facility] MONOCYTES % (AUTO) - PMC 8.0 % 08/09/2020 6:00 [facility] EOSINOPHILS % (AUTO) - PMC 0.0 % 08/09/2020 6:00 [facility] BASOPHILS % (AUTO) - PMC 0.1 % 08/09/2020 6:00 [facility] Immature Granulocyte % (Auto) 0.5 % 08/09/2020 6:00 [facility] NUCLEATED RBC % (AUTO) - PMC 0.0 % 08/09/2020 6:00 [facility] NEUTROPHILS # (AUTO) - PMC 8.7(H) 1.5 - 6.6 10 3/uL 08/09/2020 6:00 [facility] LYMPHOCYTES # (AUTO) - PMC 0.7(L) 1.0 - 3.5 10 3/uL 08/09/2020 6:00 [facility] MONOCYTES # (AUTO) - PMC 0.8 <1.0 10 3/uL 08/09/2020 6:00 EDT [facility] EOSINOPHILS # (AUTO) - PMC 0.0 <0.7 10 3/uL 08/09/2020 6:00 EDT [facility] Absolute Immature Granulocyte 0.05 <0.06 10 3/uL 08/09/2020 6:00 EDT [facility] DIFFERENTIAL METHOD Auto Differential 08/09/2020 5:46 EDT [facility] 08/09/2020 5:35 EDT 08/09/2020 5:44 EDT Virginia Quintana MD PACKAGES & DNA PROBE ORDERABLES Performing Organization Address City/State/[facility] Co de Phone Number [facility] [address] [place] [address] * C DIFFICILE TOXIN PCR, F > 2 YRS - PMC (08/09/2020 3:24 EDT) 08/09/2020 3:24 EDT 08/10/2020 5:39 EDT Comment:KWASI Narrative [facility] - 08/10/2020 6:26 EDT ----- ------- ?? RUN DATE: 08/10/20 ? [facility]: [facility] *LIVE* ? PAGE 1 ? RUN TIME: 625 ?Specimen Inquiry ? ----- ------- ?? PATIENT: DAVID FARFAN ? ACCT: [id number] LOC: ??MS ? U: [id number] ? AGE/SX: 69/M ? ROOM: 138 ?RE08/09/20 ?? REG DR: ??Ester Valerio MD ? : ?1950 ?? BED: ??1 ?DIS: ? STATUS: ADM Astrid ?TLOC: ? ----- ------- ? SPEC #: [id number] ?ALEX: 08/09/20-323 ? STATUS: ??COMP ? REQ #: [id number] ?RECD: 08/10/20 ? SUBM DR: Jennifer Tyson [...] Quintana MD MICROBIOLOGY - GENER AL ORDERABLES [facility] [address] [place] [address] documented in this encounter Visit Diagnoses Not on filedocumented in this encounter Care Teams Director Integrated Relationship Specialty Start Date End Date Katia Stone, PABijalC [address] [place] [phone] PCP - General 05/02/17 documented as of this encounter
--- OUTSIDE RECORDS SUMMARY | 2023-10-13 22:25 | XMS_ITS | Encounter Summary ---
Author Organization [facility] Address [address] [place] [address] Care Team Providers Care Lithograph Designer Name Role Phone Katia Stone PA-C Primary Care Provider +1- [phone] Encounter Details Date Type Department Care Team (Late st Contact Info) Description 08/08/2020 Results Only [facility] Dermatology - [facility] [place] [address] [place] [address] Virginia Quintana MD [address] [place] [address] Social History Tobacco Use Types Packs/Day Years [...] Requests ADD ON DONE 08/08/2020 21:57 EDT [facility] Comment: All tests (see tests in sample comments) have been added as requested. 08/08/2020 21:1 7 EDT 08/08/2020 21:57 EDT Narrative [facility] - 08/08/2020 21:57 EDT ED this evening Mg Virginia Quintana MD CHEMISTRY & BLOOD GA S ORDERABLES Performing Organization Address [facility] Co de Phone Number [facility] [address] [place] [address] * (ABNORMAL) MAGNESIUM (08/08/2020 16:47 EDT) Magnesium 1.7(L) 1.8 - 2.4 mg/dl 08/08/2020 22:02 EDT [facility] 08/08/2020 16:4 7 EDT 08/08/2020 16:52 EDT Virginia Quitnana MD CHEMISTRY & BLOOD GA S ORDERABLES Performing Organization Address [facility] Co de Phone Number [facility] [address] [place] [address] documented in this encounter Visit Diagnoses Not on filedocumented in this encounter Care Teams Lithograph Designer Relationship Specialty Start Date End Date Katia Stone, PABijalC [address] [place] [phone] PCP - General 05/02/17 documented as of this encounter
--- OUTSIDE RECORDS SUMMARY | 2023-10-13 22:25 | XMS_ITS | Encounter Summary ---
Author Organization [facility] Address [address] [place] [address] Care Team Providers Care Impregnator Electrolytic Capacitors Name Role Phone Katia Stone PA-C Primary Care Provider +1- [phone] Reason for Visit * Reason Onset Date Comments Labs Only 05/11/2020 Encounter Details Date Type Department Care Team (Late st Contact Info) Description 05/11/2020 Telephone [facility] Acute Care Surgery - [facility] [address] [place] [address] Ja Browne MD [address] [place] [phone] Labs Only Social History Tobacco Use [...] and also reviewed this with the Radiology lead front desk agent on [facility] 3 that he would need to be taken to the lab on Level 2 following his chest x-ray. They did not take him. I will re-enter the orders for the CBC to have drawn at [facility] which is closest to the patient's home he states. I have routed our CT PACHECO Salvador STOUT to re-enter the Type and Screen/ x match order to be drawn inpre-op hold on the dosa. Pt made aware to go to [facility] to have the CBC drawn on 05/17 or05/18. I confirmed with the Lab there that it's the CBC that needs to be drawn. Bindery Machine Setter verbalized understanding and no appt needed. Pt [...] on filedocumented in this encounter Care Teams Impregnator Electrolytic Capacitors Relationship Specialty Start Date End Date Katia Stone, MINGO [address] [place] [phone] PCP - General 05/02/17 documented as of this encounter
--- OUTSIDE RECORDS SUMMARY | 2023-10-13 22:25 | XMS_ITS | Encounter Summary ---
Author Organization [facility] Address [address] [place] [address] Care Team Providers Care Stand Grinder Name Role Phone Katia Stone PA-C Primary Care Provider +1- [phone] Encounter Details Date Type Department Care Team (Late st Contact Info) Description 05/16/2020 Documentation Visit [facility] Infectious Disease - [address] [address] Ja [facility]wne [facility] [address] [phone] Social History Tobacco Use Types [...] - 05/16/2020 0947 EDT Upon entering the [facility], patient answered yes to one of [...] patient sent to appointment. Kem Thomson RN, [id number] documented in this encounter Plan of Treatment Not on file documented as of this encounter Visit Diagnoses Not on filedocumented in this encounter Care Teams Stand Grinder Relationship Specialty Start Date End Date Katia Stone, MINGO [address] [place] [phone] PCP - General 05/02/17 documented as of this encounter
--- OUTSIDE RECORDS SUMMARY | 2023-10-13 22:25 | XMS_ITS | Encounter Summary ---
Author Organization [facility] Address [address] [place] [address] Care Team Providers Care Inspector Eyeglass Name Role Phone Katia Stone PA-C Primary Care Provider +1- [phone] Encounter Details Date Type Department Care Team (Late st Contact Info) Description 08/16/2020 Results Only [facility] [address] [place] [address] Junior Ray MD [address] [place] [address] Social History Tobacco Use Types [...] 137 136 - 145 mEq/L 08/16/2020 5:50 [facility] Potassium 3.5 3.5 - 5.1 mEq/L 08/16/2020 5:50 [facility] Chloride 103 96 - 107 mEq/L 08/16/2020 5:50 [facility] CO2 Total 28.1 21 - 32 mEq/L 08/16/2020 5:50 [facility] Anion Gap 5.9 mEq/L 08/16/2020 5:50 [facility] BUN 14 7 - 25 mg/dl 08/16/2020 5:50 [facility] Creatinine 0.57(L) 0.70 - 1.30 mg/dl 08/16/2020 5:50 [facility] Estimated GFR >60 >60 08/16/2020 5:50 [facility] Comment: EGFR UNITS: mL/min/1.73 m 2 CKD-EPI Equation used to calculate. Glucose 86 74 - 106 mg/dl 08/16/2020 5:50 [facility] Calcium 8.0(L) 8.5 - 10.1 mg/dl 08/16/2020 5:50 [facility] 08/16/2020 5:20 EDT 08/16/2020 5:29 EDT Junior Ray MD CHEMISTRY & BLOOD G ORDERABLES Performing Organization Address City/[facility]/ZIP Co de Phone Number [facility] [address] [place] [address] * (ABNORMAL) COMPLETE BLOOD COUNT (08/16/2020 5:20 EDT) Pathologist [facility] WBC 5.0 4.0 - 10.5 10 3/uL 08/16/2020 5:46 EDT [facility] RBC 2.65(L) 4.70 - 6.00 10 6/uL 08/16/2020 5:46 [facility] Hemoglobin 9.3(L) 13.5 - 18.0 g/dL 08/16/2020 5:46 [facility] HCT 27.3(L) 42.0 - 52.0 % 08/16/2020 5:46 [facility] MCV 103.0(H) 78 - 100 fL 08/16/2020 5:46 [facility] MCH 35.1(H) 27 - 31 pg 08/16/2020 5:46 [facility] MCHC 34.1 32 - 37 g/dL 08/16/2020 5:46 [facility] RDW-CV - PMC 15.1(H) <14.7 % 08/16/2020 5:46 [facility] PLATELET COUNT - PMC 202 150 - 450 10 3/uL 08/16/2020 5:46 [facility] MPV 10.1 9.2 - 12.0 fL 08/16/2020 5:46 [facility] 08/16/2020 5:20 EDT 08/16/2020 5:29 EDT Junior Ray MD HEMATOLOGY & PF4 OR DERABLES [facility] [address] [place] [address] documented in this encounter Visit Diagnoses Not on filedocumented in this encounter Care Teams Inspector Eyeglass Relationship Specialty Start Date End Date Katia Stone, PABijalC [address] [place] [phone] PCP - General 05/02/17 documented as of this encounter
--- OUTSIDE RECORDS SUMMARY | 2023-10-13 22:25 | XMS_ITS | Encounter Summary ---
Author Organization [facility] Address [address] [place] [address] Care Team Providers Care Propellant Charge Loader Name Role Phone Katia Stone PA-C Primary Care Provider +1- [phone] Encounter Details Date Type Department Care Team (Latest Contact Info) Description 06/19/2020 16:00 EDT - 06/19/2020 23:59 EDT Hospital Encounter [facility] Pre-Surgical Testing [address] [place] [address] Discharge Disposition: Home or Self Care Social [...] - to be organized by his case management coordinator Nila Villalobos. Pt refused to listen to instructions for surgery states I am waiting for the paper work that tells me what meds to take. This RN spoke with Cat Sutherland loader engineer to discuss above. Cat to call pt tomorrow to confirm informations on medications as well as instructions otherwise. She will also contact geriatric case manager to confirm ride. documented in this encounter Plan of Treatment Not on file documented as of this encounter Visit Diagnoses Not on filedocumented in this encounter Care Teams Propellant Charge Loader Relationship Specialty Start Date End Date Katia Stone, PABijalC [address] [place] [phone] PCP - General 05/02/17 documented as of this encounter
--- OUTSIDE RECORDS SUMMARY | 2023-10-13 22:25 | XMS_ITS | Encounter Summary ---
Author Organization [facility] Address [address] [place] [address] Care Team Providers Care Brickmason Supervisor Name Role Phone Katia Stone PA-C Primary Care Provider +1- [phone] Encounter Details Date Type Department Care Team (Late st Contact Info) Description 08/11/2020 Results Only [facility] [address] [place] [address] Jayesh Olmos MD [address] [place] [address] Social History Tobacco Use Types [...] - PMC SEE NOTES 021 15:34 EDT [facility] Comment: RESULT: No ova and parasites seen. Source:stool (If Cryptosporidium, Cyclospora, or Microsporidium are suspected, specific tests must be requested.) Single negative specimen does not rule out the possibility of a parasitic infection. Test performed [place] [address] 08/11/2020 14:5 0 EDT 08/12/2020 14:54 EDT Narrative [facility] - 08/14/2020 15:34 EDT stool Jayesh Olmos MD MICROBIOLOGY - GENERAL ORDERABLES [facility] [address] [place] [address] * FECAL BACTERIAL PATHOGENS BY PCR (08/11/2020 14:50 EDT) Salmonella PCR Negative Negative 08/13/2020 19:57 EDT [facility] Shigella/Enteroin vasive E. coli Negative Negative 08/13/2020 19:57 EDT [facility] HN LAB CAMPYLOBACTER PCR Negative Negative 08/13/2020 19:57 EDT [facility] Shiga Toxin PCR Negative Negative 1 7:29 EDT [facility] Comment: Test performed or referred by The [address] [address] 08/11/2020 14:5 0 EDT 08/12/2020 14:53 EDT Jayesh Olmos MD MICROBIOLOGY - GENERAL ORDERABLES Performing Organization Address City/State/[facility] Co de Phone Number [facility] [address] [place] [address] documented in this encounter Visit Diagnoses Not on filedocumented in this encounter Care Teams Brickmason Supervisor Relationship Specialty Start Date End Date Katia Stone, BELLAC [address] [place] [address] PCP - General 05/02/17 documented as of this encounter
--- OUTSIDE RECORDS SUMMARY | 2023-10-13 22:25 | XMS_ITS | Encounter Summary ---
Author Organization [facility] Address [address] [place] [address] Care Team Providers Care Stiff Neck Loader Name Role Phone Katia Stone PA-C Primary Care Provider +1- [phone] Encounter Details Date Type Department Care Team (Late st Contact Info) Description 08/14/2020 Results Only [facility] [address] [place] [address] Jayesh Olmos MD [address] [place] [address] Social History Tobacco Use Types [...] 1.8 - 2.4 mg/dl 08/14/2020 6:19 EDT [facility] 08/14/2020 5:03 EDT 08/14/2020 5:51 EDT Jayesh Olmos MD CHEMISTRY & BLO OD GAS ORDERABLES [facility] [address] [place] [address] * (ABNORMAL) COMPREHENSIVE METABOLIC PANEL (CMP) (08/14/2020 5:03 EDT) Sodium 138 136 - 145 mEq/L 08/14/2020 6:19 EDT [facility] Potassium 3.6 3.5 - 5.1 mEq/L 08/14/2020 6:19 [facility] Chloride 103 96 - 107 mEq/L 08/14/2020 6:19 T [facility] CO2 Total 28.4 21 - 32 mEq/L 08/14/2020 6:19 T [facility] Anion Gap 6.6 mEq/L 08/14/2020 6:19 [facility] BUN 11 7 - 25 mg/dl 08/14/2020 6:19 [facility] Creatinine 0.51(L) 0.70 - 1.30 mg/dl 08/14/2020 6:19 [facility] Estimated GFR >60 >60 08/14/2020 6:19 [facility] Comment: EGFR UNITS: mL/min/1.73 m 2 CKD-EPI Equation used to calculate. Glucose 101 74 - 106 mg/dl 08/14/2020 6:19 [facility] Calcium 8.1(L) 8.5 - 10.1 mg/dl 08/14/2020 6:19 [facility] CALCIUM,CORRECTE D - PMC 9.5 8.5 - 10.5 mg/dl 08/14/2020 6:19 [facility] BILIRUBIN - PMC 0.40 0.00 - 1.00 mg/dl 08/14/2020 6:19 [facility] AST 34 15 - 37 U/L 08/14/2020 6:19 [facility] ALT 21 16 - 63 U/L 08/14/2020 6:19 [facility] Alkaline Phosphatase 102 46 - 116 U/L 08/14/2020 6:19 [facility] Total Protein 6.3(L) 6.4 - 8.2 g/dl 08/14/2020 6:19 [facility] Albumin 2.2(L) 3.4 - 5.0 g/dl 08/14/2020 6:19 [facility] GLOBULIN - PMC 4.1 g/dl 08/14/2020 6:19 [facility] ALBUMIN/GLOBULIN RATIO - PMC 0.5 08/14/2020 6:19 [facility] 08/14/2020 5:03 EDT 08/14/2020 5:51 EDT Jayesh Olmos MD CHEMISTRY & BLO OD GAS ORDERABLES [facility] [address] [place] [address] * (ABNORMAL) COMPLETE BLOOD COUNT AND DIFFERENTIAL (08/14/2020 5:03 EDT) WBC 5.1 4.0 - 10.5 10 3/uL 08/14/2020 6:06 [facility] RBC 2.76(L) 4.70 - 6.00 10 6/uL 08/14/2020 6:06 [facility] Hemoglobin 9.9(L) 13.5 - 18.0 g/dL 08/14/2020 6:06 [facility] HCT 28.7(L) 42.0 - 52.0 % 08/14/2020 6:06 [facility] MCV 104.0(H) 78 - 100 fL 08/14/2020 6:06 [facility] MCH 35.9(H) 27 - 31 pg 08/14/2020 6:06 [facility] MCHC 34.5 32 - 37 g/dL 08/14/2020 6:06 [facility] RDW-CV - PMC 15.9(H) <14.7 % 08/14/2020 6:06 [facility] PLATELET COUNT - PMC 189 150 - 450 10 3/uL 08/14/2020 6:06 [facility] MPV 10.8 9.2 - 12.0 fL 08/14/2020 6:06 [facility] NEUTROPHILS % (AUTO) - PMC 54.7 % 08/14/2020 6:06 [facility] LYMPHOCYTES % (AUTO) - PMC 23.0 % 08/14/2020 6:06 [facility] MONOCYTES % (AUTO) - PMC 18.2 % 08/14/2020 6:06 [facility] EOSINOPHILS % (AUTO) - PMC 2.5 NOT ESTABLISHED % 08/14/2020 6:06 [facility] BASOPHILS % (AUTO) - PMC 0.8 % 08/14/2020 6:06 [facility] Immature Granulocyte % (Auto) 0.8 % 08/14/2020 6:06 [facility] NUCLEATED RBC % (AUTO) - PMC 0.0 % 08/14/2020 6:06 [facility] NEUTROPHILS # (AUTO) - PMC 2.8 1.5 - 6.6 10 3/uL 08/14/2020 6:06 [facility] LYMPHOCYTES # (AUTO) - PMC 1.2 1.0 - 3.5 10 3/uL 08/14/2020 6:06 [facility] MONOCYTES # (AUTO) - PMC 0.9 <1.0 10 3/uL 08/14/2020 6:06 [facility] EOSINOPHILS # (AUTO) - PMC 0.1 <0.7 10 3/uL 08/14/2020 6:06 [facility] Absolute Immature Granulocyte 0.04 <0.06 10 3/uL 08/14/2020 6:06 [facility] DIFFERENTIAL METHOD Auto Differential 08/14/2020 5:52 [facility] 08/14/2020 5:03 EDT 08/14/2020 5:51 EDT Narrative [facility] - 08/14/2020 6:11 EDT Comment ENOXAPARIN MONITORING Jayesh Olmos MD PACKAGES & DNA PROBE ORDERABLES [facility] [address] [place] [address] documented in this encounter Visit Diagnoses Not on filedocumented in this encounter Care Teams Stiff Neck Loader Relationship Specialty Start Date End Date Katia Stone, PABijalC [address] [place] [phone] PCP - General 05/02/17 documented as of this encounter
--- OUTSIDE RECORDS SUMMARY | 2023-10-13 22:25 | XMS_ITS | Encounter Summary ---
Author Organization [facility] Address [address] [place] [address] Care Team Providers Care Lab Support Technician Name Role Phone Katia Stone PA-C Primary Care Provider +1- [phone] Reason for Visit * Reason Onset Date Comments Appointment Related 06/16/2020 Encounter Details Date Type Department Care Team (Late st Contact Info) Description 06/16/2020 Telephone [facility] Cardiothoracic Surgery - [address] [address] Ghazala Sutherland RN Appointment Related Social History [...] Encounter - Ghazala Sutherland RN - 06/16/[address] Surgery Update Message left for pt that the Pre-Op Center will call him on Monday 06/19 between 4 - 4:45 PM. I alsoleft him a message to be sure and connect with his Talent Acquisition Administrator at PCP office to get his COVID test3-4 days prior to surgery. Surgery is on 06/26. GHAZALA SUTHERLAND RN documented in this encounter Plan of Treatment Not on file documented as of this encounter Visit Diagnoses Not on filedocumented in this encounter Care Teams Lab Support Technician Relationship Specialty Start Date End Date Katia Stone, PABijalC [address] [place] [address] PCP - General 05/02/17 documented as of this encounter
--- OUTSIDE RECORDS SUMMARY | 2023-10-13 22:25 | XMS_ITS | Encounter Summary ---
Author Organization [facility] Address [address] [place] [address] Care Team Providers Care Supervisor Composing Room Name Role Phone Katia Stone PA-C Primary Care Provider +1- [phone] Reason for Visit * Reason Onset Date Comments Confirmation 06/19/2020 Encounter Details Date Type Department Care Team (Late st Contact Info) Description 06/19/2020 Telephone [facility] Cardiothoracic Surgery - [address] [address] Cat Sutherland RN Confirmation Social History Tobacco [...] the patient to call Maru Villalobos his Video Effects Editor as she is arranging his rides for his COVID test and Surgery as well as his instructions for surgery. I also left Maru a message aswell. * Telephone Encounter - Alma Dhillon - 06/20/2020 0938 EDT FYI---Patient's Alarm Installation Technician calls to say she is not able [...] well to Maru Villalobos RN the patient's Video Effects Editor at PCP office, which she did receive. Maru had stated previously that she is arranging a ride for the patient to his COVID test 3-4 days prior to surgery and also arranging ride to [facility] on the day of surgery and will assist in helping patient understand instructions. I have called Maru Villalobos RN and left her a message to call me back on 06/20. I will also call the patient on 06/20 New phone numbers for Maru: [phone] EXT#4, EXT#[phone] Or direct line = [phone] documented in this encounter Plan of Treatment Not on file documented as of this encounter Visit Diagnoses Not on filedocumented in this encounter Care Teams Supervisor Composing Room Relationship Specialty Start Date End Date Katia Stone, PABijalC [address] [place] [phone] PCP - General 05/02/17 documented as of this encounter
--- OUTSIDE RECORDS SUMMARY | 2023-10-13 22:25 | XMS_ITS | Encounter Summary ---
Author Organization [facility] Address [address] [place] [address] Care Team Providers Care Furnace Cooler Name Role Phone Katia Stone PA-C Primary Care Provider +1- [phone] Reason for Visit * Reason Onset Date Comments Appointment Related 06/19/2020 Encounter Details Date Type Department Care Team (Late st Contact Info) Description 06/19/2020 Telephone [facility] Cardiothoracic Surgery - [facility] [address] [place] [address] Ja Browne MD [address] [place] [phone] Appointment Related Social History Tobacco Use [...] - 06/19/2020 0858 EDT TC to Nila, Marketing Content Coordinator, at patient's PCP Office. She is aware that patient has a PAT appointment today between 4:00 and 4:45 pm with an Anesthesia Nurse. Patient is scheduled for surgery on 06/26 at 12:10 pm and should arrive in the Registration Department at 10:10 am. Marketing Content Coordinator states that patient has a COVID test scheduled for 06/22 at [facility]. New telephone number noted for Marketing Content Coordinator is [phone]. documented in this encounter Plan of Treatment Not on file documented as of this encounter Visit Diagnoses Not on filedocumented in this encounter Care Teams Furnace Cooler Relationship Specialty Start Date End Date Katia Stone PA-C [address] [place] [phone] PCP - General 05/02/17 documented as of this encounter
--- OUTSIDE RECORDS SUMMARY | 2023-10-13 22:25 | XMS_ITS | Encounter Summary ---
Author Organization [facility] Address [address] [place] [address] Care Team Providers Care Dope Sprayer Name Role Phone Katia Stone PA-C Primary Care Provider +1- [phone] Reason for Visit * Reason Onset Date Comments Appointment Related 06/22/2020 Encounter Details Date Type Department Care Team (Late st Contact Info) Description 06/22/2020 Telephone [facility] Cardiothoracic Surgery - [facility] [address] [place] [address] Ja Browne MD [address] [place] [phone] Appointment Related Social History Tobacco Use [...] on filedocumented in this encounter Care Teams Dope Sprayer Relationship Specialty Start Date End Date Katia Stone, BELLAC [address] [place] [phone] PCP - General 05/02/17 documented as of this encounter
--- OUTSIDE RECORDS SUMMARY | 2023-10-13 22:25 | XMS_ITS | Encounter Summary ---
Author Organization [facility] Address [address] [place] [address] Care Team Providers Care Second Watch Sergeant Name Role Phone Katia Stone PA-C Primary Care Provider +1- [phone] Encounter Details Date Type Department Care Team (Late st Contact Info) Description 08/10/2020 Results Only [facility] Rheumatology [address] [place] [address] Ester Valerio MD [address] [facility] [address] [place] [phone] Social History Tobacco Use Types Packs/Day Years [...] 1.8 - 2.4 mg/dl 08/10/2020 6:13 EDT [facility] 08/10/2020 5:35 EDT 08/10/2020 5:42 EDT Ester Valerio MD CHEMISTRY & BLOO D GAS ORDERABLES [facility] [address] [place] [address] * (ABNORMAL) BASIC METABOLIC PANEL (BMP) (08/10/2020 5:35 EDT) Sodium 133(L) 136 - 145 mEq/L 08/10/2020 6:13 EDT [facility] Potassium 3.4(L) 3.5 - 5.1 mEq/L 08/10/2020 6:13 EDT [facility] Chloride 98 96 - 107 mEq/L 08/10/2020 6:13 [facility] CO2 Total 27.2 21 - 32 mEq/L 08/10/2020 6:13 [facility] Anion Gap 7.8 mEq/L 08/10/2020 6:13 [facility] BUN 6(L) 7 - 25 mg/dl 08/10/2020 6:13 [facility] Creatinine 0.54(L) 0.70 - 1.30 mg/dl 08/10/2020 6:13 [facility] Estimated GFR >60 >60 08/10/2020 6:13 [facility] Comment: EGFR UNITS: mL/min/1.73 m 2 CKD-EPI Equation used to calculate. Glucose 86 74 - 106 mg/dl 08/10/2020 6:13 [facility] Calcium 7.7(L) 8.5 - 10.1 mg/dl 08/10/2020 6:13 [facility] 08/10/2020 5:35 EDT 08/10/2020 5:42 EDT Ester Valerio MD CHEMISTRY & BLOO D GAS ORDERABLES [facility] [address] [place] [address] * (ABNORMAL) HEPATIC FUNCTION PANEL (ALB,ALK PHOS,ALT,AST,DBIL,TOT BOSSMAN,TOT PROT) (08/10/2020 5:35 EDT) BILIRUBIN - PMC 0.90 0.00 - 1.00 mg/dl 08/10/2020 6:13 [facility] DIRECT BILIRUBIN - PMC 0.50(H) 0.00 - 0.30 mg/dl 08/10/2020 6:13 [facility] INDIRECT BILIRUBIN - PMC 0.40 0.00 - 0.80 mg/dl 08/10/2020 6:13 [facility] AST 50(H) 15 - 37 U/L 08/10/2020 6:13 [facility] ALT 37 16 - 63 U/L 08/10/2020 6:13 [facility] Alkaline Phosphatase 97 46 - 116 U/L 08/10/2020 6:13 [facility] Total Protein 6.1(L) 6.4 - 8.2 g/dl 08/10/2020 6:13 [facility] Albumin 2.3(L) 3.4 - 5.0 g/dl 08/10/2020 6:13 [facility] GLOBULIN - PMC 3.8 g/dl 08/10/2020 6:13 [facility] ALBUMIN/GLOBULIN RATIO - PMC 0.6 08/10/2020 6:13 [facility] 08/10/2020 5:35 EDT 08/10/2020 5:42 EDT Ester Valerio MD CHEMISTRY & BLOO D GAS ORDERABLES Performing Organization Address City/State/[facility] Co de Phone Number [facility] [address] [place] [address] * (ABNORMAL) COMPLETE BLOOD COUNT AND DIFFERENTIAL (08/10/2020 5:35 EDT) WBC 7.0 4.0 - 10.5 10 3/uL 08/10/2020 5:58 [facility] RBC 2.72(L) 4.70 - 6.00 10 6/uL 08/10/2020 5:58 [facility] Hemoglobin 9.7(L) 13.5 - 18.0 g/dL 08/10/2020 5:58 [facility] HCT 27.9(L) 42.0 - 52.0 % 08/10/2020 5:58 [facility] MCV 102.6(H) 78 - 100 fL 08/10/2020 5:58 [facility] MCH 35.7(H) 27 - 31 pg 08/10/2020 5:58 [facility] MCHC 34.8 32 - 37 g/dL 08/10/2020 5:58 [facility] RDW-CV - PMC 14.7 <14.7 % 08/10/2020 5:58 [facility] PLATELET COUNT - PMC 180 150 - 450 10 3/uL 08/10/2020 5:58 [facility] MPV 11.0 9.2 - 12.0 fL 08/10/2020 5:58 [facility] NEUTROPHILS % (AUTO) - PMC 65.5 % 08/10/2020 5:58 [facility] LYMPHOCYTES % (AUTO) - PMC 17.5 % 08/10/2020 5:58 [facility] MONOCYTES % (AUTO) - PMC 13.9 % 08/10/2020 5:58 [facility] EOSINOPHILS % (AUTO) - PMC 2.1 % 08/10/2020 5:58 [facility] BASOPHILS % (AUTO) - PMC 0.4 % 08/10/2020 5:58 [facility] Immature Granulocyte % (Auto) 0.6 % 08/10/2020 5:58 [facility] NUCLEATED RBC % (AUTO) - PMC 0.0 % 08/10/2020 5:58 [facility] NEUTROPHILS # (AUTO) - PMC 4.6 1.5 - 6.6 10 3/uL 08/10/2020 5:58 [facility] LYMPHOCYTES # (AUTO) - PMC 1.2 1.0 - 3.5 10 3/uL 08/10/2020 5:58 [facility] MONOCYTES # (AUTO) - PMC 1.0 <1.0 10 3/uL 08/10/2020 5:58 [facility] EOSINOPHILS # (AUTO) - PMC 0.2 <0.7 10 3/uL 08/10/2020 5:58 [facility] Absolute Immature Granulocyte 0.04 <0.06 10 3/uL 08/10/2020 5:58 [facility] DIFFERENTIAL METHOD Auto Differential 08/10/2020 5:44 [facility] 08/10/2020 5:35 EDT 08/10/2020 5:43 EDT Ester Valerio MD PACKAGES & DNA P ANETA ORDERABLES [facility] [address] [place] [address] documented in this encounter Visit Diagnoses Not on filedocumented in this encounter Care Teams Second Watch Sergeant Relationship Specialty Start Date End Date Katia Stone, PABijalC [address] [place] [address] PCP - General 05/02/17 documented as of this encounter
--- OUTSIDE RECORDS SUMMARY | 2023-10-13 22:26 | XMS_ITS | Encounter Summary ---
Author Organization [facility] Address [address] [place] [address] Care Team Providers Care Rn Critical Care Name Role Phone Katia Stone PA-C Primary Care Provider +1- [phone] Reason for Visit * Reason Onset Date Comments Coordination Of Care 04/19/2020 Returning Call 04/20/2020 Encounter Details Date Type Department Care Team (Late st Contact Info) Description 04/19/2020 Telephone [facility] Cardiology - [address] [id number] Tony Rosenberg MD [address] [place] [address] [address] [place] [address] Coordination Of Care; Returning Call [...] Adam Ordoñez - 04/20/2020 1508 EST Patient's keycase assembler returning call to Belinda. Please call. * Telephone Encounter - Belinda Falk RN - 04/20/2020 1457 EST Call placed to keycase assembler regarding patient unable to reach by phone. Message left on voice mail to call office back with call back number [phone]. * Telephone Encounter - Conner Mccall - 04/19/2020 1118 EST Reason for Call: Coordination Of Care Summary/Symptoms: Maru patients Slitter Processed Film reaching out to get more information on [...] filedocumented in this encounter Care Teams Rn Critical Care Relationship Specialty Start Date End Date Katia Stone PA-C [address] [place] [phone] PCP - General 05/02/17 documented as of this encounter
--- OUTSIDE RECORDS SUMMARY | 2023-10-13 22:26 | XMS_ITS | Encounter Summary ---
Author Organization [facility] Address [address] [place] [address] Care Team Providers Care Printing Sign Machine Operator Name Role Phone Katia Stone PA-C Primary Care Provider +1- [phone] Reason for Visit * Reason Onset Date Comments Other 11/03/2019 pacemaker proble m Encounter Details Date Type Department Care Team (Late st Contact Info) Description 11/03/2019 Telephone [facility] Cardiology - [address] [place] [address] Tony Rosenberg MD [employer] [facility] [address] [place] [address] Other (pacemaker problem) Social History [...] 11/03/2019 1017 EDT Spoke with Nila at [facility], she is wondering about update in regards to plan for lead revision. Nila asks for an update you can reach her at [phone] extension [phone] Please advise * Telephone Encounter - Jada Ochoa - 11/03/2019 1015 EDT Patient's pacemaker has been shocking him. documented in this encounter Plan of Treatment Not on file documented as of this encounter Visit Diagnoses Not on filedocumented in this encounter Care Teams Printing Sign Machine Operator Relationship Specialty Start Date End Date Katia Stone PA-C [address] [place] [address] PCP - General 05/02/17 documented as of this encounter
--- OUTSIDE RECORDS SUMMARY | 2023-10-13 22:26 | XMS_ITS | Encounter Summary ---
Author Organization [facility] Address [address] [place] [address] Care Team Providers Care Coordinating Producer Name Role Phone Katia Stone PA-C Primary Care Provider +1- [phone] Reason for Visit * Reason Comments Arrhythmia Encounter Details Date Type Department Care Team (Late st Contact Info) Description 10/13/2019 16:00 EDT Office Visit [facility] [address] [address] Tony Rosenberg MD [address] [place] [address] Heart block AV third degree (HCC-CMS) [...] file Gets together: Not on file Attends [employer] service: Not on file Active member of [...] complete documented in this encounter Care Teams Coordinating Producer Relationship Specialty Start Date End Date Katia Stone, PABijalC [address] [place] [phone] PCP - General 05/02/17 documented as of this encounter
--- OUTSIDE RECORDS SUMMARY | 2023-10-13 22:26 | XMS_ITS | Encounter Summary ---
Author Organization [facility] Address [address] [place] [address] Care Team Providers Care Bessemer Regulator Name Role Phone Katia Stone PA-C Primary Care Provider +1- [phone] Reason for Visit * Reason Comments Pacemaker Problem Encounter Details Date Type Department Care Team (Late st Contact Info) Description 04/12/2020 12:20 EST Office Visit [facility] Cardiology [address] [address] Tony Rosenberg MD [address] [place] [address] [place] [phone] Heart block AV third degree (HCC-CMS) [...] Rosenberg MD - 04/12/2020 1216 EST [facility] CARDIOLOGY - [place] PROGRESS / FOLLOWUP NOTE - 04/12/2020 PROBLEM LIST 1. Third-degree heart block, status post dual chamber pacemaker insertion, complicated by pericardial effusion and need for 12-lead repositioning. 2. Hyponatremia. 3. RA lead failure. SUBJECTIVE: Mr Mera returns to the clinic at [facility] to discuss the issues surrounding his [...] had 2 recent hospitalizations, one at [facility] and the other at [facility] [...] Tony Rosenberg MD / CD Dictation ID: [id number] cc: documented in this encounter Plan of Treatment Not on file documented as of this encounter Visit Diagnoses Diagnosis 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, complete documented in this encounter Care Teams Bessemer Regulator Relationship Specialty Start Date End Date Katia Stone, MINGO [address] [place] [phone] PCP - General 05/02/17 documented as of this encounter
--- OUTSIDE RECORDS SUMMARY | 2023-10-13 22:26 | XMS_ITS | Encounter Summary ---
Author Organization [facility] Address [address] [place] [address] Care Team Providers Care Zoogler Name Role Phone Katia Stone PA-C Primary Care Provider +1- [phone] Encounter Details Date Type Department Care Team (Late st Contact Info) Description 01/16/2020 Results Only [facility] [address] [place] [address] Unknown, Provider, Social History Tobacco Use Types [...] 129(L) 136 - 145 mEq/L 01/16/2020 7:26 [facility] Potassium 3.8 3.5 - 5.1 mEq/L 01/16/2020 7:26 [facility] Chloride 95(L) 96 - 107 mEq/L 01/16/2020 7:26 [facility] CO2 Total 27.5 21 - 32 mEq/L 01/16/2020 7:26 [facility] Anion Gap 7.5 mEq/L 01/16/2020 7:26 [facility] BUN 10 7 - 25 mg/dl 01/16/2020 7:26 [facility] Creatinine 0.64(L) 0.70 - 1.30 mg/dl 01/16/2020 7:26 [facility] Estimated GFR >60 >60 01/16/2020 7:29 [facility] Comment: EGFR UNITS: mL/min/1.73 m 2 CKD-EPI Equation used to calculate. Glucose 91 74 - 106 mg/dl 01/16/2020 7:26 [facility] Calcium 8.4(L) 8.5 - 10.1 mg/dl 01/16/2020 7:26 [facility] 01/16/2020 7:07 EST 01/16/2020 7:09 EST Provider Unknown CHEMISTRY & BLOOD GA S ORDERABLES Performing Organization Address City/State/[facility] Co de Phone Number [facility] [address] [place] [address] documented in this encounter Visit Diagnoses Not on filedocumented in this encounter Care Teams Zoogler Relationship Specialty Start Date End Date Katia Stone, [place] [address] [place] [phone] PCP - General 05/02/17 documented as of this encounter
--- OUTSIDE RECORDS SUMMARY | 2023-10-13 22:26 | XMS_ITS | Encounter Summary ---
Author Organization [facility] Address [address] [place] [address] Care Team Providers Care Analyst Market Intelligence Name Role Phone Katia Stone PA-C Primary Care Provider +1- [phone] Reason for Visit * Reason Onset Date Comments Other 08/15/2017 Returning Call 08/15/2017 To Belinda Encounter Details Date Type Department Care Team (Late st Contact Info) Description 08/15/[address] [facility] Cardiology - Chaitanya Chaitanya [address] [place], [place] [id number] Belinda Falk, TISH Other; Returning Call (To [...] - 08/15/2017 1243 EDT Spoke with Yessica (laboratory animal care veterinarian at PCP) in regards to patient Tim [...] Yessica patient needs to follow-up with primary sink cutter in [place] Dr. Torres. Per Yessica patient has not seen Dr. Torres since before his first admission to [facility] on 04/30/17. Mentioned to Yessica, patient needs to be following up with PCP and primary sink cutter. Yessica expressed understanding and will reach out to Dr. Torres's office at [facility]. Discharge summaries and last OV note [...] by phone. Left detailed message, patient is [place] patient and no showed for visit with Dr. Rosenberg on 08/06. Instructed Yessica to reach out to [facility] where his primary sink cutter is established on voice mail. documented in this encounter Plan of Treatment Not on file documented as of this encounter Visit Diagnoses Not on filedocumented in this encounter Care Teams Analyst Market Intelligence Relationship Specialty Start Date End Date Katia Stone, [place] [address] [place] [phone] PCP - General 05/02/17 documented as of this encounter
--- OUTSIDE RECORDS SUMMARY | 2023-10-13 22:26 | XMS_ITS | Encounter Summary ---
Author Organization [facility] Address [address] [place] [address] Care Team Providers Care Cfo Name Role Phone Katia Stone PA-C Primary Care Provider +1- [phone] Reason for Visit * Reason Onset Date Comments Coordination Of Care 11/30/2019 Follow-up 12/02/2019 Follow-up 12/22/2019 Pacemaker Problem 12/23/2019 Encounter Details Date Type Department Care Team (Late st Contact Info) Description 11/30/2019 Telephone [facility] Cardiology - [address] [place] [address] Tony Rosenberg MD [address] [place], [place] [address] [place] [address] Coordination Of Care; Follow-up; Follow-up; [...] Telephone Encounter - Tony Tim - 11/30/2019 2647 EDT Angela is calling to speak to [...] on filedocumented in this encounter Care Teams Cfo Relationship Specialty Start Date End Date Katia Stone, PABijalC [address] [place] [phone] PCP - General 05/02/17 documented as of this encounter
--- OUTSIDE RECORDS SUMMARY | 2023-10-13 22:26 | XMS_ITS | Encounter Summary ---
Author Organization [facility] Address [address] [place] [address] Care Team Providers Care Family Psychologist Name Role Phone Katia Stone PA-C Primary Care Provider +1- [phone] Encounter Details Date Type Department Care Team (Late st Contact Info) Description 01/14/2020 Results Only [facility] [phone] Jayesh Olmos MD [address] [place] [phone] Social History Tobacco Use Types Packs/Day [...] 136 - 145 mEq/L 01/14/2020 19:38 EST [facility] 01/14/2020 19:1 0 EST 01/14/2020 19:19 EST Jayesh Olmos MD CHEMISTRY & BLO OD GAS ORDERABLES Performing Organization Address [facility] Co de Phone Number [facility] [address] [place] [address] * (ABNORMAL) SODIUM (01/14/2020 14:55 EST) Sodium 125(L) 136 - 145 mEq/L 01/14/2020 15:17 EST [facility] 01/14/2020 14:5 5 EST 01/14/2020 14:59 EST Jayesh Olmos MD CHEMISTRY & BLO OD GAS ORDERABLES Performing Organization Address [facility]/ZIP Co de Phone Number [facility] [address] [place] [address] * (ABNORMAL) COMPLETE BLOOD COUNT (01/14/2020 5:30 EST) WBC 5.2 4.0 - 10.5 10 3/uL 01/14/2020 6:25 [facility] RBC 3.29(L) 4.70 - 6.00 10 6/uL 01/14/2020 6:25 [facility] Hemoglobin 11.5(L) 13.5 - 18.0 g/dL 01/14/2020 6:25 [facility] HCT 31.5(L) 42.0 - 52.0 % 01/14/2020 6:25 [facility] MCV 95.7 78 - 100 fL 01/14/2020 6:25 [facility] MCH 35.0(H) 27 - 31 pg 01/14/2020 6:25 [facility] MCHC 36.5(H) 32 - 36 g/dL 01/14/2020 6:25 [facility] RDW-CV - PMC 13.1 11.0 - 14.8 % 01/14/2020 6:25 [facility] PLATELET COUNT - PMC 156 150 - 450 10 3/uL 01/14/2020 6:25 [facility] 01/14/2020 5:30 EST 01/14/2020 5:54 [facility] - 01/14/2020 6:37 [...] Olmos MD HEMATOLOGY & PF 4 ORDERABLES [facility] [address] [place] [address] * MAGNESIUM (01/14/2020 5:30 EST) Magnesium 2.0 1.8 - 2.4 mg/dl 01/14/2020 6:30 [facility] 01/14/2020 5:30 EST 01/14/2020 5:54 EST [facility] - 01/14/2020 6:33 EST Sample [...] GAS ORDERABLES [facility] [address] [place] [address] * (ABNORMAL) BASIC METABOLIC PANEL,RANDOM - PMC (01/14/2020 5:30 EST) Sodium 122(L) 136 - 145 mEq/L 01/14/2020 6:30 [facility] Potassium 4.0 3.5 - 5.1 mEq/L 01/14/2020 6:30 [facility] Chloride 89(L) 96 - 107 mEq/L 01/14/2020 6:30 [facility] CO2 Total 28.1 21 - 32 mEq/L 01/14/2020 6:30 [facility] Anion Gap 5.9 mEq/L 01/14/2020 6:30 [facility] BUN 11 7 - 25 mg/dl 01/14/2020 6:30 [facility] Creatinine 0.71 0.70 - 1.30 mg/dl 01/14/2020 6:30 [facility] Estimated GFR >60 >60 01/14/2020 6:30 [facility] Comment: EGFR UNITS: mL/min/1.73 m 2 CKD-EPI Equation used to calculate. Glucose 101 70 - 180 mg/dl 01/14/2020 6:30 [facility] Calcium 8.2(L) 8.5 - 10.1 mg/dl 01/14/2020 6:30 [facility] 01/14/2020 5:30 EST 01/14/2020 5:54 EST [facility] LAB - 01/14/2020 6:33 EST Sample [...] GAS ORDERABLES [facility] [address] [place] [address] documented in this encounter Visit Diagnoses Not on filedocumented in this encounter Care Teams Family Psychologist Relationship Specialty Start Date End Date Katia Stone, PARosanna [address] [place] [phone] PCP - General 05/02/17 documented as of this encounter
--- OUTSIDE RECORDS SUMMARY | 2023-10-13 22:26 | XMS_ITS | Encounter Summary ---
Author Organization [facility] Address [address] [place] [address] Care Team Providers Care Plate Gauger Name Role Phone Katia Stone PA-C Primary Care Provider +1- [phone] Encounter Details Date Type Department Care Team (Late st Contact Info) Description 01/13/2020 Results Only [facility] Lab [address] [place] [address] Unknown, Provider, Social History Tobacco Use Types [...] 136 - 145 mEq/L 01/13/2020 22:16 EST LAB 01/13/2020 21:5 0 EST 01/13/2020 21:55 EST Narrative LAB - 01/13/2020 22:26 EST Sample collected by ED but method of collection (IV Start or venipuncture) not indicated on sample. Provider Unknown CHEMISTRY & BLOOD GA S ORDERABLES LAB [address] [place] [address] * TROPONIN I (01/13/2020 7:15 EST) Troponin I (ng/mL) <0.050 0 - 0.056 ng/ml 01/13/2020 7:52 EST LAB Comment: Interpretation: The cutoff for an [...] 01/13/2020 7:15 EST 01/13/2020 7:18 EST Narrative LAB - 01/13/2020 7:54 EST Sample collected [...] Unknown CHEMISTRY & BLOOD GA S ORDERABLES LAB [address] [place] [address] * (ABNORMAL) SODIUM (01/13/2020 7:15 EST) [facility] Sodium 120(L) 136 - 145 mEq/L 01/13/2020 7:52 [facility] 01/13/2020 7:15 EST 01/13/2020 7:18 [facility] - 01/13/2020 7:54 EST [...] BLOOD GA S ORDERABLES Performing Organization Address [facility] de Phone Number LAB [address] [place] [address] * OSMOLALITY,S PMC TEMP (01/13/2020 5:42 EST) [facility] OSMOLALITY,S 280 275 - 295 mOsm/kg 01/14/2020 18:37 [facility] Comment: Test Performed by: [place] [address] Counter Intelligence Agent: Pierre Andersen M.D. Ph.D.; CLIA# [id number] 01/13/2020 5:42 EST 01/13/2020 5:52 [facility] - 01/14/2020 18:37 EST Sample collected by ED but method of collection (IV Start or venipuncture) not indicated on sample. Provider Unknown CHEMISTRY & BLOOD GA S ORDERABLES Performing Organization Address [facility] Co de Phone Number LAB [address] [place] [address] * FOLATE (01/13/2020 5:42 EST) [facility] Folate 18.7 >8.6 ng/mL 01/13/2020 7:43 [facility] 01/13/2020 5:42 EST 01/13/2020 5:54 EST Provider Unknown CHEMISTRY & BLOOD GA S ORDERABLES Performing Organization Address [facility] Phone Number LAB [address] [place] [address] * VITAMIN B12 (01/13/2020 5:42 EST) Vitamin B12 246 193 - 986 pg/mL 01/13/2020 7:43 [facility] Comment: The results of this assay can be falsely elevated due to the consumption of Biotin. 01/13/2020 5:42 EST 01/13/2020 5:54 EST Provider Unknown CHEMISTRY & BLOOD GA S ORDERABLES Performing Organization Address [facility] Number LAB [address] [place] [address] * (ABNORMAL) IRON,TIBC,FERRITIN GROUP - PMC (01/13/2020 5:42 EST) Iron 178(H) 65 - 175 mcg/dL 01/13/2020 7:43 [facility] Iron Binding Capacity 193(L) 250 - 450 mcg/dL 01/13/2020 7:43 [facility] PERCENT IRON SATURATION - PMC 92(H) 14 - 50 % 01/13/2020 7:43 [facility] Ferritin >1,000(H) 26 - 388 ng/mL 01/13/2020 7:43 [facility] 01/13/2020 5:42 EST 01/13/2020 5:54 EST Provider Unknown CHEMISTRY & BLOOD GA S ORDERABLES Performing Organization Address [facility] Co de Phone Number LAB [address] [place] [address] * PROTIME (01/13/2020 5:42 EST) Pro Time 11.1 9.0 - 12.3 SEC 01/13/2020 6:47 [facility] PROTHROMBIN TIME WITH INR - PMC 1.1 0.8 - 1.2 RATIO 01/13/2020 6:47 [facility] Comment: Interpretive Information: Moderate Intensity Coumadin [...] reasons. 01/13/2020 5:42 EST 01/13/2020 5:55 EST [facility] LAB - 01/13/2020 6:48 EST Sample collected by ED but method of collection (IV Start or venipuncture) not indicated on sample. Provider Unknown HEMATOLOGY & PF4 ORD ERABLES Performing Organization Address [facility] Phone Number LAB [address] [place] [address] * THYROID CASCADE (01/13/2020 5:42 EST) TSH 1.958 0.360 - 3.740 mIU/L 01/13/2020 6:35 [facility] Comment: Note: This is a Third Generation Assay .......................................... The results of this assay can be falsely decreased due to the consumption of Biotin. 01/13/2020 5:42 EST 01/13/2020 5:51 EST [facility] - 01/13/2020 6:35 EST Sample collected by ED but method of collection (IV Start or venipuncture) not indicated on sample. Provider Unknown CHEMISTRY & BLOOD GA S ORDERABLES Performing Organization Address [facility] Co ut Phone Number LAB [address] [place] [address] * (ABNORMAL) MAGNESIUM (01/13/2020 5:42 EST) Magnesium 1.4(L) 1.8 - 2.4 mg/dl 01/13/2020 6:35 [facility] 01/13/2020 5:42 EST 01/13/2020 5:51 [facility] - 01/13/2020 6:35 EST Sample collected by ED but method of collection (IV Start or venipuncture) not indicated on sample. Provider Unknown MD CHEMISTRY & BLOOD GA S ORDERABLES LAB [address] [place] [address] * (ABNORMAL) HEPATIC & CMP COMBO,FASTING - PMC (01/13/2020 5:42 EST) Sodium 121(L) 136 - 145 mEq/L 01/13/2020 6:35 [facility] Potassium 4.1 3.5 - 5.1 mEq/L 01/13/2020 6:35 [facility] Chloride 87(L) 96 - 107 mEq/L 01/13/2020 6:35 [facility] CO2 Total 25.5 21 - 32 mEq/L 01/13/2020 6:35 [facility] Anion Gap 8.5 mEq/L 01/13/2020 6:35 [facility] BUN 4(L) 7 - 25 mg/dl 01/13/2020 6:35 [facility] Creatinine 0.60(L) 0.70 - 1.30 mg/dl 01/13/2020 6:35 [facility] Estimated GFR >60 >60 01/13/2020 6:35 [facility] Comment: EGFR UNITS: mL/min/1.73 m 2 CKD-EPI Equation used to calculate. Glucose 70 70 - 180 mg/dl 01/13/2020 6:35 [facility] Calcium 7.9(L) 8.5 - 10.1 mg/dl 01/13/2020 6:35 [facility] CALCIUM,CORRECTE D - PMC 8.9 8.5 - 10.5 mg/dl 01/13/2020 6:35 [facility] BILIRUBIN - PMC 0.70 0.00 - 1.00 mg/dl 01/13/2020 6:35 [facility] AST 56(H) 15 - 37 U/L 01/13/2020 6:35 [facility] ALT 38 16 - 63 U/L 01/13/2020 6:35 [facility] Alkaline Phosphatase 87 46 - 116 U/L 01/13/2020 6:35 [facility] Total Protein 6.8 6.4 - 8.2 g/dl 01/13/2020 6:35 [facility] Albumin 2.7(L) 3.4 - 5.0 g/dl 01/13/2020 6:35 [facility] GLOBULIN - PMC 4.1 g/dl 01/13/2020 6:35 [facility] ALBUMIN/GLOBULIN RATIO - PMC 0.6 01/13/2020 6:35 [facility] 01/13/2020 5:42 EST 01/13/2020 5:51 [facility] - 01/13/2020 6:35 EST Sample collected by ED but method of collection (IV Start or venipuncture) not indicated on sample. Provider Unknown CHEMISTRY & BLOOD GA S ORDERABLES Performing Organization Address City/State/[facility] Co de Phone Number LAB [address] [place] [address] * (ABNORMAL) COMPLETE BLOOD COUNT AND DIFFERENTIAL (01/13/2020 5:42 EST) WBC 5.2 4.0 - 10.5 10 3/uL 01/13/2020 6:17 [facility] RBC 3.24(L) 4.70 - 6.00 10 6/uL 01/13/2020 6:17 [facility] Hemoglobin 11.3(L) 13.5 - 18.0 g/dL 01/13/2020 6:17 [facility] HCT 30.8(L) 42.0 - 52.0 % 01/13/2020 6:17 [facility] MCV 95.1 78 - 100 fL 01/13/2020 6:17 [facility] MCH 34.9(H) 27 - 31 pg 01/13/2020 6:17 [facility] MCHC 36.7(H) 32 - 36 g/dL 01/13/2020 6:17 [facility] RDW-CV - PMC 12.5 11.0 - 14.8 % 01/13/2020 6:17 [facility] PLATELET COUNT - PMC 161 150 - 450 10 3/uL 01/13/2020 6:17 [facility] NEUTROPHILS % (AUTO) - PMC 52.1 42.0 - 75.0 % 01/13/2020 6:17 [facility] LYMPHOCYTES % (AUTO) - PMC 30.5 16.0 - 52.0 % 01/13/2020 6:17 [facility] MONOCYTES % (AUTO) - PMC 13.8(H) 1.0 - 11.0 % 01/13/2020 6:17 [facility] EOSINOPHILS % (AUTO) - PMC 1.7 0.0 - 7.0 % 01/13/2020 6:17 [facility] BASOPHILS % (AUTO) - PMC 1.3 0.0 - 4.0 % 01/13/2020 6:17 [facility] NUCLEATED RBC % (AUTO) - PMC 0.0 <1 % 01/13/2020 6:17 [facility] NEUTROPHILS # (AUTO) - PMC 2.7 1.5 - 6.6 10 3/uL 01/13/2020 6:17 [facility] LYMPHOCYTES # (AUTO) - PMC 1.6 1.0 - 3.5 10 3/uL 01/13/2020 6:17 [facility] MONOCYTES # (AUTO) - PMC 0.7 <1.0 10 3/uL 01/13/2020 6:17 [facility] EOSINOPHILS # (AUTO) - PMC 0.1 <0.7 10 3/uL 01/13/2020 6:17 [facility] BASOPHILS # (AUTO) - PMC 0.1 <0.1 10 3/uL 01/13/2020 6:17 [facility] NUCLEATED RBC # (AUTO) - PMC 0.00 <1 10 3/uL 01/13/2020 6:17 [facility] 01/13/2020 5:42 EST 01/13/2020 5:55 EST Narrative LAB - 01/13/2020 6:48 EST Sample collected by ED but method of collection (IV Start or venipuncture) not indicated on sample. Provider Unknown MD PACKAGES & DNA PROBE ORDERABLES LAB [address] [place] [address] * OSMOLALITY, UR PMC TEMP (01/13/2020 1:57 EST) Osmolality, Ur 239 150 - 1150 mOsm/kg 01/14/2020 18:37 EST LAB Comment: Test Performed by: [place] [address] Counter Intelligence Agent: Pierre Andersen M.D. Ph.D.; CLIA# [id number] 01/13/2020 1:57 EST 01/13/2020 2:14 EST Provider Unknown CHEMISTRY & BLOOD GA S ORDERABLES Performing Organization Address City/[facility]/ZIP Co de Phone Number LAB [address] [place] [address] * UA MICROSCOPIC - PMC (01/13/2020 1:57 EST) URINE RBC - PMC None Seen 0 - 2 hpf 0 3:06 [facility] URINE WBC - PMC None seen 0 - 3 hpf 0 3:06 [facility] URINE BACTERIA - PMC None Seen None Seen hpf 01/13/2020 3:06 [facility] URINE MUCUS - PMC None Seen lpf 01/13/2020 3:06 [facility] URINE SQUAMOUS EPITHELIAL CELL - PMC None Seen None-Few hpf 01/13/2020 3:06 [facility] 01/13/2020 1:57 EST 01/13/2020 2:15 EST Narrative LAB - 01/13/2020 3:07 EST Clean Catch Provider Unknown CHEMISTRY & BLOOD GA S ORDERABLES LAB [address] [place] [address] * TROPONIN I (01/13/2020 1:57 EST) [facility] Troponin I (ng/mL) <0.050 0 - 0.056 ng/ml 01/13/2020 2:42 EST LAB Comment: Interpretation: The cutoff for an [...] BLOOD GA S ORDERABLES Performing Organization Address [facility] Co de Phone Number LAB [address] [place] [address] * (ABNORMAL) SODIUM (01/13/2020 1:57 EST) [facility] Sodium 118(CRIT LOW) 136 - 145 mEq/L 01/13/2020 2:59 EST LAB Comment: Results called and read back to me by: Location: ER Full name: LEV JOSHUA Credentials: RN at 0258 on 01/13/20 by TESS. 01/13/2020 1:57 EST 01/13/2020 2:11 EST Provider Unknown CHEMISTRY & BLOOD GA S ORDERABLES LAB [address] [place] [address] * (ABNORMAL) BNP - PMC (01/13/2020 1:57 EST) Pathologist [facility] B-TYPE NATRIURETIC PEPTIDE - PMC 549(H) <100 pg/mL 01/13/2020 2:36 EST LAB 01/13/2020 1:57 EST 01/13/2020 2:12 EST Provider Unknown CHEMISTRY & BLOOD GA S ORDERABLES LAB [address] [place] [address] * (ABNORMAL) UA (CULTURE IF POSITIVE) - PMC (01/13/2020 1:57 EST) URINE COLOR - PMC Yellow Straw/Yelow 01/13/2020 2:26 [facility] URINE APPEARANCE - PMC Clear Clr/Hazy 01/13/2020 2:26 [facility] URINE PH - PMC 6.0 5.0 - 9.0 01/13/2020 2:26 [facility] UR SPECIFIC GRAVITY (REFRACTOM) - PMC 1.006 1.001 - 1.035 01/13/2020 2:40 [facility] URINE PROTEIN - PMC Negative Negative mg/dL 01/13/2020 2:26 [facility] URINE GLUCOSE (UA) - PMC Negative Negative mg/dL 01/13/2020 2:26 [facility] URINE KETONES - PMC Trace(A) Negative mg/dL 01/13/2020 2:26 [facility] URINE BILIRUBIN - PMC Negative Negative 01/13/2020 2:26 [facility] URINE BLOOD - PMC Trace(A) Negative 01/13/2020 2:26 [facility] URINE UROBILINOGEN - PMC 0.2 0.2 - 1.0 E.U./dL 01/13/2020 2:26 [facility] URINE NITRATE - PMC Negative Negative 01/13/2020 2:26 [facility] URINE LEUKOCYTE ESTERASE - PMC Negative Negative 01/13/2020 2:26 [facility] URINE CULTURE COMMENTS - PMC CRITERIA NOT MET 01/13/2020 3:06 [facility] Comment:Specimen does not me et criteria for culture. 01/13/2020 1:57 EST 01/13/2020 2:15 EST [facility] LAB - 01/13/2020 3:07 EST Clean Catch Provider Unknown MICROBIOLOGY - GENER AL ORDERABLES LAB [address] [place] [address] * SODIUM, URINE RANDOM (01/13/2020 1:57 EST) Sodium, Urine 52 20 - 110 mEq/L 01/13/2020 2:35 EST LAB 01/13/2020 1:57 EST 01/13/2020 2:14 EST Provider Unknown MD URINALYSIS ORDERABLE S Performing Organization Address City/State/[facility] Co de Phone Number LAB [address] [place] [address] documented in this encounter Visit Diagnoses Not on filedocumented in this encounter Care Teams Plate Gauger Relationship Specialty Start Date End Date Katia Stone, PA-C [address] [place] [phone] PCP - General 05/02/17 documented as of this encounter
--- OUTSIDE RECORDS SUMMARY | 2023-10-13 22:26 | XMS_ITS | Encounter Summary ---
Author Organization [facility] Address [address] [place] [address] Care Team Providers Care Insole Filler Name Role Phone Katia Stone PA-C Primary Care Provider +1- [phone] Reason for Visit * Reason Onset Date Comments Other 07/16/2017 Encounter Details Date Type Department Care Team (Late st Contact Info) Description 07/16/2017 Telephone [facility] Cardiology [place] [place] [address] Caitie Atwood, TAIWO [address] [facility] 1 [place] [address] Other Social History Tobacco Use [...] 07/16/2017 1358 EDT I spoke to the child caregiver private home at the [place] [facility]. There following the patient.He [...] on filedocumented in this encounter Care Teams Insole Filler Relationship Specialty Start Date End Date Katia Stone, MINGO [address] [place] [phone] PCP - General 05/02/17 documented as of this encounter
--- OUTSIDE RECORDS SUMMARY | 2023-10-13 22:26 | XMS_ITS | Encounter Summary ---
Author Organization [facility] Address [address] [place] [address] Care Team Providers Care Order Desk Caller Name Role Phone Katia Stone PA-C Primary Care Provider +1- [phone] Encounter Details Date Type Department Care Team (Late st Contact Info) Description 01/14/2020 Results Only [facility] [address] [place] [address] Unknown, Provider, Social History Tobacco Use Types [...] 11.2 9.0 - 12.3 SEC 01/14/2020 6:26 [facility] PROTHROMBIN TIME WITH INR - PMC 1.1 0.8 - 1.2 RATIO 01/14/2020 6:26 [facility] Comment: Interpretive Information: Moderate Intensity [...] reasons. 01/14/2020 5:30 EST 01/14/2020 5:54 EST [facility] - 01/14/2020 6:37 EST Sample [...] Unknown MD HEMATOLOGY & PF4 ORD ERABLES [facility] [address] [place] [address] * (ABNORMAL) SODIUM (01/14/2020 2:07 EST) Sodium 121(L) 136 - 145 mEq/L 01/14/2020 2:30 [facility] 01/14/2020 2:07 EST 01/14/2020 2:13 EST Narrative [facility] - 01/14/2020 2:41 EST Sample collected from saline lock with discard per protocol by non-laboratory staff. Provider Unknown CHEMISTRY & BLOOD GA S ORDERABLES Performing Organization Address City/State/[facility] Co de Phone Number [facility] [address] [place] [address] documented in this encounter Visit Diagnoses Not on filedocumented in this encounter Care Teams Order Desk Caller Relationship Specialty Start Date End Date Katia Stone, PABijalC [address] [place] [phone] PCP - General 05/02/17 documented as of this encounter
--- OUTSIDE RECORDS SUMMARY | 2023-10-13 22:26 | XMS_ITS | Encounter Summary ---
Author Organization [facility] Address [address] [place] [address] Care Team Providers Care Insole Cementer Name Role Phone Katia Stone PA-C Primary Care Provider +1- [phone] Reason for Visit * Reason Onset Date Comments Medication Questions 07/16/2017 Encounter Details Date Type Department Care Team (Late st Contact Info) Description 07/16/2017 Telephone [facility] Cardiology - [place] [address] Caitie Atwood, TAIWO 111 [facility] 1 [place] [address] Medication Questions Social History Tobacco [...] FU with Dr. Rosenberg on August 06. Yesisca expressed understanding and will complete refill. * [...] filedocumented in this encounter Care Teams Insole Cementer Relationship Specialty Start Date End Date Katia Stone, MINGO [address] [place] [phone] PCP - General 05/02/17 documented as of this encounter
--- OUTSIDE RECORDS SUMMARY | 2023-10-13 22:26 | XMS_ITS | Encounter Summary ---
Author Organization [facility] Address [address] [place] [address] Care Team Providers Care Line Up Examiner Name Role Phone Katia Stone PA-C Primary Care Provider +1- [phone] Encounter Details Date Type Department Care Team (Late st Contact Info) Description 05/28/2018 Historical Results Only [facility] Results [address] [place], [place] [address] Haja Richmond MD [address] [place] [phone] Social History Tobacco Use Types Packs/Day [...] - PMC 129(H) <100 05/28/2018 1:18 EDT [facility] 05/28/2018 0:45 EDT 05/28/2018 0:55 EDT Haja iRchmond MD CHEMISTRY & BLOOD G ORDERABLES [facility] * (ABNORMAL) COMPLETE BLOOD COUNT AND DIFFERENTIAL (05/28/2018 0:45 EDT) WBC 10.2 4.0 - 10.5 05/28/2018 0:59 EDT [facility] RBC 3.77(L) 4.70 - 6.00 05/28/2018 0:59 EDT [facility] Hemoglobin 12.7(L) 13.5 - 18.0 05/28/2018 0:59 EDT [facility] HCT 35.3(L) 42.0 - 52.0 05/28/2018 0:59 EDT [facility] MCV 93.6 78 - 100 05/28/2018 0:59 [facility] MCH 33.7(H) 27 - 31 05/28/2018 0:59 [facility] MCHC 36.0 32 - 36 05/28/2018 0:59 [facility] RDW-CV - PMC 12.0 11.5 - 14.0 05/28/2018 0:59 [facility] PLATELET COUNT - PMC 306 150 - 450 05/28/2018 0:59 [facility] NEUTROPHILS % (AUTO) - PMC 76.5(H) 42.0 - 75.0 05/28/2018 0:59 [facility] LYMPHOCYTES % (AUTO) - PMC 14.0(L) 16.0 - 52.0 05/28/2018 0:59 [facility] MONOCYTES % (AUTO) - PMC 7.9 1.0 - 11.0 05/28/2018 0:59 [facility] EOSINOPHILS % (AUTO) - PMC 0.2 0.0 - 7.0 05/28/2018 0:59 [facility] BASOPHILS % (AUTO) - PMC 0.2 0.0 - 4.0 05/28/2018 0:59 [facility] NUCLEATED RBC % (AUTO) - PMC 0.0 <1 05/28/2018 0:59 [facility] NEUTROPHILS # (AUTO) - PMC 7.8(H) 1.5 - 6.6 05/28/2018 0:59 [facility] LYMPHOCYTES # (AUTO) - PMC 1.4 1.0 - 3.5 05/28/2018 0:59 [facility] MONOCYTES # (AUTO) - PMC 0.8 <1.0 05/28/2018 0:59 [facility] EOSINOPHILS # (AUTO) - PMC 0.0 <0.7 05/28/2018 0:59 [facility] BASOPHILS # (AUTO) - PMC 0.0 <0.1 05/28/2018 0:59 [facility] NUCLEATED RBC # (AUTO) - PMC 0.00 <1 05/28/2018 0:59 [facility] 05/28/2018 0:45 EDT 05/28/2018 0:55 EDT Haja Richmond MD PACKAGES & DNA PROB E ORDERABLES Performing Organization Address [facility]/ZIP Co de Phone Number [facility] * TROPONIN I (05/28/2018 0:45 EDT) [facility] Troponin I (ng/mL) <0.05 <0.10 05/28/2018 1:23 EDT [facility] Comment: REFERENCE RANGE: Negative: ? <0.10 ng/mL Indeterminate: 0.10-0.80 ng/mL Positive: ? >0.80 ng/mL ........................................... The results of this assay can be falsely decreased due to the consumption of Biotin. 05/28/2018 0:45 EDT 05/28/2018 0:56 EDT Haja Richmond MD CHEMISTRY & BLOOD G ORDERABLES Performing Organization Address [facility] Co de Phone Number [facility] * (ABNORMAL) HEPATIC & CMP COMBO,FASTING - PMC (05/28/2018 0:45 EDT) [facility] Sodium 120(L) 136 - 145 05/28/2018 1:21 [facility] Potassium 4.0 3.5 - 5.1 05/28/2018 1:21 [facility] Chloride 83(L) 96 - 107 05/28/2018 1:21 [facility] CO2 Total 25.9 21 - 32 05/28/2018 1:21 [facility] Anion Gap 11.1 05/28/2018 1:21 [facility] BUN 6(L) 7 - 25 05/28/2018 1:21 [facility] Creatinine 0.60(L) 0.7 - 1.30 05/28/2018 1:21 [facility] Estimated GFR >60 >60 05/28/2018 1:25 [facility] Comment: EGFR UNITS: mL/min/1.73 m 2 CKD-EPI Equation used to calculate. Glucose 122 70 - 180 05/28/2018 1:21 [facility] Calcium 9.1 8.5 - 10.5 05/28/2018 1:21 [facility] CALCIUM,CORRECTE D - PMC 9.8 8.5 - 10.5 05/28/2018 1:21 [facility] BILIRUBIN - PMC 0.30 0.00 - 1.00 05/28/2018 1:21 [facility] AST 90(H) 15 - 37 05/28/2018 1:21 [facility] ALT 87(H) 12 - 78 05/28/2018 1:21 [facility] Alkaline Phosphatase 89 46 - 116 05/28/2018 1:21 [facility] Total Protein 8.3(H) 6.4 - 8.2 05/28/2018 1:21 [facility] Albumin 3.1(L) 3.4 - 5.0 05/28/2018 1:21 [facility] GLOBULIN - PMC 5.2 05/28/2018 1:21 [facility] ALBUMIN/GLOBULIN RATIO - PMC 0.5 05/28/2018 1:21 [facility] 05/28/2018 0:45 EDT 05/28/2018 0:56 EDT Haja Raulito Richmond MD CHEMISTRY & BLOOD G ORDERABLES [facility] * XR CHEST 2 VIEWS (05/28/2018 0:11 EDT) Anatomical Region Laterality Modality Other 05/28/2018 0:11 EDT Narrative 05/28/2018 0:11 EDT [facility]: [address] [address] Diagnostic Imaging Report Signed Patient Name:DAVID FARFAN ? Date of :1950 ? MR Number:[id number] Age:67 ?Sex:M Category: CR ? Date of [...] for further evaluation. Report signed by: Alma Sherwodo On 05/28/2018 ??02:12:19 Dictated by: Alma Sherwood DO ? D/ 0011 Transcribed by: GABE ? D/T: E-Signed by: Alma Sherwood DO ? D/ 1 Procedure Note Alma Sherwood MD - [facility] [place] [address] Diagnostic Imaging Report Signed Patient Name:DAVID FARFAN Number:[id number] Date of :1950 MRNumber:[id number] Age:67 Sex:M Category: CR Date ofExam:05/28/18 Procedure: CR: Chest; Frontal/LAT viewsAccession: [id number] Ordering Physician: Haja Richmond MD CC: Haja [...] for further evaluation. Report signed by: Alma Sehrwood On 05/28/2018 02:12:19 Dictated by: Alma Sherwood/ 0011 Transcribed by: JOSEPH/T: E-Signed by: Alma Sherwood DOD/ 0212 Haja Richmond MD IMG DIAGNOSTIC IMAG ING ORDERABLES documented in this encounter Visit Diagnoses Not on filedocumented in this encounter Additional Health Concerns Infection Onset Date Last Indicated Resolved Time RSV 01/31/2022 01/31/2022 02/10/2022 22:1 5 EST documented as of this encounter Care Teams Line Up Examiner Relationship Specialty Start Date End Date Katia Stone, MINGO [address] [place] [phone] PCP - General 05/02/17 documented as of this encounter
--- OUTSIDE RECORDS SUMMARY | 2023-10-13 22:26 | XMS_ITS | Encounter Summary ---
Author Organization [facility] Address [address] [place] [address] Care Team Providers Care Contracting Specialist Name Role Phone Katia Stone PA-C Primary Care Provider +1- [phone] Reason for Visit * Reason Onset Date Comments Labs Only 07/22/2017 from 07/16 Encounter Details Date Type Department Care Team (Late st Contact Info) Description 07/22/2017 Telephone [facility] Cardiology - [facility] [address] [facility] [place] [address] Tony Rosenberg MD [address] [place] [address] [address] [place] [address] Labs Only (from 07/16) Social [...] call office back with call back number [phone]. * Telephone Encounter - Belinda Falk RN - 07/23/2017 1054 EDT Call received from Yessica with questions on when patient's follow-up appointment was with Dr. Rosenberg, where the labwork needed to be sent to, and in put from cardiology. Provided Yessica the provider access line for PCP to discuss patient's care with Dr. Rosenberg. Also discussed with Yessica since patient is seen in [place] records are not accessible to our office (labs, and outside office notes). Yessica to review with PCP and formulate coordination of care with [facility]. * Telephone Encounter - Belinda Falk RN - 07/22/2017 1500 EDT Call placed to Yessica regarding Tim Mera unable to reach patient by phone. Message left on voicemail to call office back with call back number [phone]. * Telephone Encounter - Morena Lux - 07/22/2017 1456 EDT Yessica from [facility] Regarding patients labs from 07/16 Has anyone addressed them Please call to advise documented in this encounter Plan of Treatment Not on file documented as of this encounter Visit Diagnoses Not on filedocumented in this encounter Care Teams Contracting Specialist Relationship Specialty Start Date End Date Katia Stone, MINGO [address] [place] [phone] PCP - General 05/02/17 documented as of this encounter
--- OUTSIDE RECORDS SUMMARY | 2023-10-13 22:26 | XMS_ITS | Encounter Summary ---
Author Organization [facility] Address [address] [place] [address] Care Team Providers Care Solution Designer Name Role Phone Katia Stone PA-C Primary Care Provider +1- [phone] Encounter Details Date Type Department Care Team (Late st Contact Info) Description 12/12/2018 Results Only [facility] [address] [place] [address] [place] [address] Wang Vila MD [address] [facility], [facility] 1 [place] [address] Social History Tobacco Use Types [...] 0.40 0.00 - 1.00 mg/dl 12/12/2018 23:24 [facility] DIRECT BILIRUBIN - PMC 0.10 0.00 - 0.30 mg/dl 12/12/2018 23:24 [facility] INDIRECT BILIRUBIN - PMC 0.30 0.00 - 0.80 mg/dl 12/12/2018 23:24 [facility] AST 68(H) 15 - 37 U/L 12/12/2018 23:24 [facility] ALT 53 12 - 78 U/L 12/12/2018 23:24 [facility] Alkaline Phosphatase 98 46 - 116 U/L 12/12/2018 23:24 [facility] Total Protein 7.4 6.4 - 8.2 g/dl 12/12/2018 23:24 [facility] Albumin 3.0(L) 3.4 - 5.0 g/dl 12/12/2018 23:24 EDT [facility] GLOBULIN - PMC 4.4 g/dl 12/12/2018 23:24 EDT [facility] ALBUMIN/GLOBULIN RATIO - PMC 0.6 12/12/2018 23:24 EDT [facility] 12/12/2018 22:1 6 EDT 12/12/2018 23:12 EDT Wang Vila MD CHEMISTRY & BLOOD GA S ORDERABLES Performing Organization Address [facility] Co de Phone Number [facility] * PROCALCITONIN - PMC (12/12/2018 22:16 EDT) Procalcitonin <0.05 <0.50 ng/mL 12/12/2018 23:13 EDT [facility] Comment: Concentration of < 0.5 ng/mL [...] 22:1 6 EDT 12/12/2018 22:43 EDT Wang Vial MD HEMATOLOGY & PF4 ORD ERABLES Performing Organization Address City/[facility]/ZIP Co de Phone Number [facility] * (ABNORMAL) BNP - PMC (12/12/2018 22:15 EDT) B-TYPE NATRIURETIC PEPTIDE - PMC 123(H) <100 pg/mL 12/12/2018 22:40 EDT [facility] 12/12/2018 22:1 5 EDT 12/12/2018 22:19 EDT Wang Vila MD CHEMISTRY & BLOOD GA S ORDERABLES Performing Organization Address [facility] de Phone Number [facility] * TROPONIN I (12/12/2018 22:06 EDT) Pathologist [facility] Troponin I (ng/mL) <0.05 <0.10 ng/ml 12/12/2018 23:00 [facility] Comment: REFERENCE RANGE: Negative: ? <0.10 ng/mL Indeterminate: 0.10-0.80 ng/mL Positive: ? >0.80 ng/mL ........................................... The results of this assay can be falsely decreased due to the consumption of Biotin. 12/12/2018 22:0 6 EDT 12/12/2018 22:18 EDT Wang Vila MD CHEMISTRY & BLOOD GA S ORDERABLES Performing Organization Address [facility] de Phone Number [facility] * (ABNORMAL) BASIC METABOLIC PANEL,RANDOM - PMC (12/12/2018 22:06 EDT) [facility] Sodium 120(L) 136 - 145 mEq/L 12/12/2018 23:00 [facility] Potassium 4.6 3.5 - 5.1 mEq/L 12/12/2018 23:00 [facility] Chloride 86(L) 96 - 107 mEq/L 12/12/2018 23:00 [facility] CO2 Total 25.2 21 - 32 mEq/L 12/12/2018 23:00 [facility] Anion Gap 8.8 mEq/L 12/12/2018 23:00 [facility] BUN 7 7 - 25 mg/dl 12/12/2018 23:00 [facility] Creatinine 0.61(L) 0.7 - 1.30 mg/dl 12/12/2018 23:00 [facility] Estimated GFR >60 >60 12/12/2018 23:02 [facility] Comment: EGFR UNITS: mL/min/1.73 m 2 CKD-EPI Equation used to calculate. GLUCOSE,RANDOM - PMC 89 70 - 180 mg/dl 12/12/2018 23:00 EDT [facility] Calcium 8.1(L) 8.5 - 10.5 mg/dl 12/12/2018 23:00 EDT [facility] 12/12/2018 22:0 6 EDT 12/12/2018 22:18 EDT Wang Vila MD CHEMISTRY & BLOOD GA S ORDERABLES [facility] documented in this encounter Visit Diagnoses Not on filedocumented in this encounter Care Teams Solution Designer Relationship Specialty Start Date End Date Katia Stone, PABijalC [address] [place] [phone] PCP - General 05/02/17 documented as of this encounter
--- OUTSIDE RECORDS SUMMARY | 2023-10-13 22:26 | XMS_ITS | Encounter Summary ---
Author Organization [facility] Address [address] [place] [address] Care Team Providers Care Er Manager Name Role Phone Katia Stone PA-C Primary Care Provider +1- [phone] Encounter Details Date Type Department Care Team [...] on filedocumented in this encounter Care Teams Er Manager Relationship Specialty Start Date End Date Katia Stone, MINGO [address] [place] [phone] PCP - General 05/02/17 documented as of this encounter
--- OUTSIDE RECORDS SUMMARY | 2023-10-13 22:26 | XMS_ITS | Encounter Summary ---
Author Organization [facility] Address [address] [place] [address] Care Team Providers Care Pipeline Controller Name Role Phone Katia Stone PA-C Primary Care Provider +1- [phone] Reason for Visit * Reason Onset Date Comments Follow-up 12/23/2019 TE 11/02 Encounter Details Date Type Department Care Team (Late st Contact Info) Description 12/23/2019 Telephone [facility] Cardiology - [address] [place], [place] [id number] Tony Rosenberg MD [address] [place] [address] [address] [place] [address] Follow-up (TE 11/02) Social History [...] on filedocumented in this encounter Care Teams Pipeline Controller Relationship Specialty Start Date End Date Katia Stone, PABijalC [address] [place] [phone] PCP - General 05/02/17 documented as of this encounter
--- OUTSIDE RECORDS SUMMARY | 2023-10-13 22:26 | XMS_ITS | Encounter Summary ---
Author Organization [facility] Address [address] [place] [address] Care Team Providers Care Cable Supervisor Name Role Phone Katia Stone PA-C Primary Care Provider +1- [phone] Encounter Details Date Type Department Care Team (Late st Contact Info) Description 01/12/2020 Results Only [facility] [address] [place] [address] Jayesh Olguin MD [address] [place] [address] Social History Tobacco Use Types [...] (01/12/2020 22:30 EST) POC CAPILLARY GLUCOSE - [facility] 102(H) 70 - 100 mg/dL 01/12/2020 22:59 EST [facility] 01/12/2020 22:3 0 EST 01/12/2020 22:58 EST Jayesh Olguin MD POINT OF CARE TEST ORDERABLES [facility] [address] [place] [address] * (ABNORMAL) ETHYL ALCOHOL LEVEL - PMC (01/12/2020 22:30 EST) ETHYL ALCOHOL LEVEL - [facility] 237.0(CRIT HIGH) <10 mg/dL 01/12/2020 23:47 EST [facility] Comment: Results called and read back to me by: Location: ED Full name: FERMIN FAROOQ Credentials: RN at 2346 on 01/12/20 by TESS. Medical Serum/Plasma Alcohol test reported in mg/dL. Example of unit conversion from mg/dL to percentage: ?80 mg/dL is equivalent to 0.08 % 01/12/2020 22:3 0 EST 01/12/2020 23:03 EST [facility] - 01/12/2020 23:47 EST Sample collected at time of saline lock or IV placement. Jayehs Olguin MD CHEMISTRY & BLOOD G ORDERABLES Performing Organization Address [facility] de Phone Number [facility] [address] [place] [address] * TROPONIN I (01/12/2020 22:30 EST) Pathologist [facility] Troponin I (ng/mL) <0.050 0 - 0.056 ng/ml 01/12/2020 23:32 EST [facility] Comment: Interpretation: The cutoff for [...] 01/12/2020 22:3 0 EST 01/12/2020 23:03 EST [facility] - 01/12/2020 23:47 EST Sample collected at time of saline lock or IV placement. Jayesh Olguin MD CHEMISTRY & BLOOD G ORDERABLES Performing Organization Address [facility] Co de Phone Number [facility] [address] [place] [address] * (ABNORMAL) BASIC METABOLIC PANEL,RANDOM - PMC (01/12/2020 22:30 EST) Pathologist [facility] Sodium 116(CRIT LOW) 136 - 145 mEq/L 01/12/2020 23:33 [facility] Comment: Results called and read back to me by: Location: ED Full name: DEBBIE JOSHUA Credentials: RN at 2332 on 01/12/20 by TESS. Potassium 4.3 3.5 - 5.1 mEq/L 01/12/2020 23:32 [facility] Chloride 83(L) 96 - 107 mEq/L 01/12/2020 23:32 [facility] CO2 Total 24.6 21 - 32 mEq/L 01/12/2020 23:32 [facility] Anion Gap 10.4 mEq/L 01/12/2020 23:32 [facility] BUN 5(L) 7 - 25 mg/dl 01/12/2020 23:32 [facility] Creatinine 0.62(L) 0.70 - 1.30 mg/dl 01/12/2020 23:32 [facility] Estimated GFR >60 >60 01/12/2020 23:33 [facility] Comment: EGFR UNITS: mL/min/1.73 m 2 CKD-EPI Equation used to calculate. Glucose 89 70 - 180 mg/dl 01/12/2020 23:32 [facility] Calcium 8.2(L) 8.5 - 10.1 mg/dl 01/12/2020 23:32 [facility] 01/12/2020 22:3 0 EST 01/12/2020 23:03 [facility] - 01/12/2020 23:47 EST Sample collected at time of saline lock or IV placement. Jayesh Olguin MD CHEMISTRY & BLOOD G ORDERABLES Performing Organization Address City/State/[facility] Co de Phone Number [facility] [address] [place] [address] * (ABNORMAL) HEPATIC FUNCTION PANEL (ALB,ALK PHOS,ALT,AST,DBIL,TOT BOSSMAN,TOT PROT) (01/12/2020 22:30 EST) BILIRUBIN - PMC 0.60 0.00 - 1.00 mg/dl 01/12/2020 23:32 [facility] DIRECT BILIRUBIN - PMC 0.20 0.00 - 0.30 mg/dl 01/12/2020 23:32 [facility] INDIRECT BILIRUBIN - PMC 0.40 0.00 - 0.80 mg/dl 01/12/2020 23:32 [facility] AST 74(H) 15 - 37 U/L 01/12/2020 23:32 [facility] ALT 44 16 - 63 U/L 01/12/2020 23:32 [facility] Alkaline Phosphatase 103 46 - 116 U/L 01/12/2020 23:32 [facility] Total Protein 8.1 6.4 - 8.2 g/dl 01/12/2020 23:32 [facility] Albumin 3.3(L) 3.4 - 5.0 g/dl 01/12/2020 23:32 [facility] GLOBULIN - PMC 4.8 g/dl 01/12/2020 23:32 [facility] ALBUMIN/GLOBULIN RATIO - PMC 0.6 01/12/2020 23:32 [facility] 01/12/2020 22:3 0 EST 01/12/2020 23:03 [facility] - 01/12/2020 23:47 EST Sample collected at time of saline lock or IV placement. Jayesh Olguin MD CHEMISTRY & BLOOD G ORDERABLES [facility] [address] [place] [address] * (ABNORMAL) COMPLETE BLOOD COUNT AND DIFFERENTIAL (01/12/2020 22:30 EST) WBC 5.5 4.0 - 10.5 10 3/uL 01/12/2020 23:19 [facility] RBC 3.69(L) 4.70 - 6.00 10 6/uL 01/12/2020 23:19 [facility] Hemoglobin 12.8(L) 13.5 - 18.0 g/dL 01/12/2020 23:19 [facility] HCT 35.3(L) 42.0 - 52.0 % 01/12/2020 23:19 [facility] MCV 95.7 78 - 100 fL 01/12/2020 23:19 [facility] MCH 34.7(H) 27 - 31 pg 01/12/2020 23:19 [facility] MCHC 36.3(H) 32 - 36 g/dL 01/12/2020 23:19 [facility] RDW-CV - PMC 12.6 11.0 - 14.8 % 01/12/2020 23:19 [facility] PLATELET COUNT - PMC 182 150 - 450 10 3/uL 01/12/2020 23:19 [facility] NEUTROPHILS % (AUTO) - PMC 54.5 42.0 - 75.0 % 01/12/2020 23:19 [facility] LYMPHOCYTES % (AUTO) - PMC 29.0 16.0 - 52.0 % 01/12/2020 23:19 [facility] MONOCYTES % (AUTO) - PMC 12.6(H) 1.0 - 11.0 % 01/12/2020 23:19 [facility] EOSINOPHILS % (AUTO) - PMC 2.4 0.0 - 7.0 % 01/12/2020 23:19 [facility] BASOPHILS % (AUTO) - PMC 1.1 0.0 - 4.0 % 01/12/2020 23:19 [facility] NUCLEATED RBC % (AUTO) - PMC 0.0 <1 % 01/12/2020 23:19 [facility] NEUTROPHILS # (AUTO) - PMC 3.0 1.5 - 6.6 10 3/uL 01/12/2020 23:19 [facility] LYMPHOCYTES # (AUTO) - PMC 1.6 1.0 - 3.5 10 3/uL 01/12/2020 23:19 [facility] MONOCYTES # (AUTO) - PMC 0.7 <1.0 10 3/uL 01/12/2020 23:19 [facility] EOSINOPHILS # (AUTO) - PMC 0.1 <0.7 10 3/uL 01/12/2020 23:19 [facility] BASOPHILS # (AUTO) - PMC 0.1 <0.1 10 3/uL 01/12/2020 23:19 [facility] NUCLEATED RBC # (AUTO) - PMC 0.00 <1 10 3/uL 01/12/2020 23:19 [facility] 01/12/2020 22:3 0 EST 01/12/2020 23:04 EST Narrative [facility] - 01/12/2020 23:35 EST Sample collected at time of saline lock or IV placement. Jayesh Olguin MD PACKAGES & DNA PROB E ORDERABLES [facility] [address] [place] [address] documented in this encounter Visit Diagnoses Not on filedocumented in this encounter Care Teams Cable Supervisor Relationship Specialty Start Date End Date Katia Stone, PABijalC [address] [place] [phone] PCP - General 05/02/17 documented as of this encounter
--- OUTSIDE RECORDS SUMMARY | 2023-10-13 22:26 | XMS_ITS | Encounter Summary ---
Author Organization [facility] Address [address] [place] [address] Care Team Providers Care Government Professor Name Role Phone Katia Stone PA-C Primary Care Provider +1- [phone] Reason for Visit * Reason Onset Date Comments Other 06/18/2017 discharged on 06.03.15 Follow-up 07/16/2017 Encounter Details Date Type Department Care Team (Late st Contact Info) Description 06/18/2017 Telephone [facility] Cardiology - [address] [place] [address] Pierre Rubio MD [address] [place] [address] Other (discharged on 06.03.15); Follow-up [...] taper and [facility] [place], stated colchicine has run out- not sure if pt needs a refill or not. States he called pt's PCP in [place] and that MD wants to know if RN should draw labs? Please call back JOAN as he is with the pt now. Routing to Giovanni Sam NP and Belinda Eddy RN and will also go speak with one of them as well. Let Riley WINSTON know that Belinda Eddy would call back. * Telephone Encounter - Isidra Telles - 07/16/2017 1257 EDT [facility], Weight at 224, has been fluctuating Limited edema Has been winded Less endurance Cough has green secretions Some slight harsh breathing sounds Questions: Blood Work? Prednisone Taper seems to be off, will need a refill if continuing in the same manner * Telephone Encounter - Belinda Falk RN - 06/18/2017 1630 EDT Spoke with Riley horta [facility] mentioned call placed to patient to confirm medication taking. Per patient he was taking Torsemide 40 mg daily and was not taking lasix. Per Bill this was differnet then what was discussed. Referred home Health to discuss care with Shailesh Torres MD in [place] and Katia Mccallum PA-C, [facility]. * Telephone Encounter - Belinda Falk RN [...] 06.16.17. He has been feeling ok. [facility] health is calling to discuss his [...] on filedocumented in this encounter Care Teams Government Professor Relationship Specialty Start Date End Date Katia Stone PA-C [address] [place] [phone] PCP - General 05/02/17 documented as of this encounter
--- OUTSIDE RECORDS SUMMARY | 2023-10-13 22:26 | XMS_ITS | Encounter Summary ---
Author Organization [facility] Address [address] [place] [address] Care Team Providers Care Apparatus Lineman Name Role Phone Katia Stone PA-C Primary Care Provider +1- [phone] Encounter Details Date Type Department Care Team (Late st Contact Info) Description 06/25/2018 Historical Results Only [facility] [address] [place] [address] [place], [place] [address] Leonard Crespo MD [address] [place] [address],[address] [place] [id number] Social History Tobacco Use Types Packs/Day Years [...] IGE - PMC <0.35 06/29/2018 15:54 EDT [facility] Comment: Class 0 (Negative <0.35) Test Performed by: [place] [address] 06/25/2018 18:5 0 EDT 06/25/2018 18:56 EDT Leonard Crespo MD CHEMISTRY & BLOOD GA S ORDERABLES [facility] * ENGLISH MAXWELL IGE - PMC (06/25/2018 18:50 EDT) ENGLISH MAXWELL IGE <0.35 06/29/2018 15:54 EDT [facility] Comment: Class 0 (Negative <0.35) Test Performed by: [address] [id number] 06/25/2018 18:5 0 EDT 06/25/2018 18:56 EDT Leonard Crespo MD CHEMISTRY & BLOOD GA S ORDERABLES [facility] * HOUSE DUST MITES/D.P., IGE - PMC (06/25/2018 18:50 EDT) HOUSE DUST MITES/D.P., IGE - PMC <0.35 06/29/2018 15:54 EDT [facility] Comment: Class 0 (Negative <0.35) Test Performed by: [address] [id number] 06/25/2018 18:5 0 EDT 06/25/2018 18:56 EDT Leonard Crespo MD CHEMISTRY & BLOOD GA S ORDERABLES Performing Organization Address City/[facility]/ZIP Co de Phone Number [facility] * [facility] ALLERGEN,S - PMC (06/25/2018 18:50 EDT) ALTERNARIA TENUIS, IGE - PMC <0.35 06/29/2018 15:54 [facility] Comment:Class 0 (Negative <0 .35) CLAD - PMC <0.35 06/29/2018 15:54 [facility] Comment:Class 0 (Negative <0 .35) HOUSE DUST MITE/D.F., IGE <0.35 06/29/2018 15:54 EDT [facility] Comment: Class 0 (Negative <0.35) Test Performed by: [facility] - [address] [address] CAT - PMC <0.35 06/29/2018 15:54 [facility] Comment:Class 0 (Negative <0 .35) DOG DANDER, IGE - PMC <0.35 06/29/2018 15:54 [facility] Comment:Class 0 (Negative <0 .35) YAYA GRASS IGE - PMC <0.35 06/29/2018 15:54 [facility] Comment:Class 0 (Negative <0 .35) LAMBS QUARTER, IGE - PMC <0.35 06/29/2018 15:54 [facility] Comment:Class 0 (Negative <0 .35) OAK - PMC <0.35 06/29/2018 15:54 [facility] Comment:Class 0 (Negative <0 .35) RAGWEED, SHORT, IGE - PMC <0.35 06/29/2018 15:54 [facility] Comment:Class 0 (Negative <0 .35) CONNER GRASS, IGE - PMC <0.35 06/29/2018 15:54 [facility] Comment:Class 0 (Negative <0 .35) 06/25/2018 18:5 0 EDT 06/25/2018 18:56 EDT Leonard Crespo MD CHEMISTRY & BLOOD GA S ORDERABLES [facility] * (ABNORMAL) HEPATIC & CMP COMBO,FASTING - PMC (06/25/2018 18:50 EDT) Sodium 130(L) 136 - 145 06/25/2018 19:38 [facility] Potassium 4.3 3.5 - 5.1 06/25/2018 19:38 [facility] Chloride 93(L) 96 - 107 06/25/2018 19:38 [facility] CO2 Total 26.4 21 - 32 06/25/2018 19:38 [facility] Anion Gap 10.6 06/25/2018 19:38 [facility] BUN 15 7 - 25 06/25/2018 19:38 [facility] Creatinine 0.86 0.7 - 1.30 06/25/2018 19:38 [facility] Estimated GFR >60 >60 06/25/2018 19:38 [facility] Comment: EGFR UNITS: mL/min/1.73 m 2 CKD-EPI Equation used to calculate. Glucose 89 FASTIN -99 06/25/2018 19:38 [facility] Calcium 8.6 8.5 - 10.5 06/25/2018 19:38 [facility] CALCIUM,CORRECTE D - PMC 9.0 8.5 - 10.5 06/25/2018 19:38 [facility] BILIRUBIN - PMC 0.30 0.00 - 1.00 06/25/2018 19:38 [facility] AST 55(H) 15 - 37 06/25/2018 19:38 [facility] ALT 65 12 - 78 06/25/2018 19:38 [facility] Alkaline Phosphatase 115 46 - 116 06/25/2018 19:38 [facility] Total Protein 7.5 6.4 - 8.2 06/25/2018 19:38 [facility] Albumin 3.5 3.4 - 5.0 06/25/2018 19:38 [facility] GLOBULIN - PMC 4.0 06/25/2018 19:38 [facility] ALBUMIN/GLOBULIN RATIO - PMC 0.8 06/25/2018 19:38 [facility] 06/25/2018 18:5 0 EDT 06/25/2018 18:56 EDT Leonard Crespo MD CHEMISTRY & BLOOD GA S ORDERABLES [facility] documented in this encounter Visit Diagnoses Not on filedocumented in this encounter Care Teams Apparatus Lineman Relationship Specialty Start Date End Date Katia Stone, PABijalC [address] [place] [phone] PCP - General 05/02/17 documented as of this encounter
--- OUTSIDE RECORDS SUMMARY | 2023-10-13 22:26 | XMS_ITS | Encounter Summary ---
Author Organization [facility] Address [address] [place] [address] Care Team Providers Care Jet Dyeing Machine Operator Name Role Phone Katia Stone PA-C Primary Care Provider +1- [phone] Encounter Details Date Type Department Care Team (Late st Contact Info) Description 06/18/2018 Historical Results Only [facility] [address] [place], [place] [id number] Katia Stone, MINGO [address] [place] [address] Social History Tobacco Use Types [...] Sodium 125(L) 136 - 145 06/18/2018 13:02 [facility] Potassium 4.9 3.5 - 5.1 06/18/2018 13:02 [facility] Chloride 88(L) 96 - 107 06/18/2018 13:02 [facility] CO2 Total 27.6 21 - 32 06/18/2018 13:02 [facility] Anion Gap 8.4 06/18/2018 13:02 [facility] BUN 8 7 - 25 06/18/2018 13:02 [facility] Creatinine 0.69(L) 0.7 - 1.30 06/18/2018 13:02 [facility] Estimated GFR >60 >60 06/18/2018 13:03 [facility] Comment: EGFR UNITS: mL/min/1.73 m 2 CKD-EPI Equation used to calculate. Glucose 86 FASTIN -99 06/18/2018 13:02 [facility] Calcium 8.4(L) 8.5 - 10.5 06/18/2018 13:02 [facility] CALCIUM,CORRECTE D - PMC 8.9 8.5 - 10.5 06/18/2018 13:02 [facility] BILIRUBIN - PMC 0.60 0.00 - 1.00 06/18/2018 13:02 [facility] AST 63(H) 15 - 37 06/18/2018 13:02 [facility] ALT 58 12 - 78 06/18/2018 13:02 [facility] Alkaline Phosphatase 94 46 - 116 06/18/2018 13:02 EDT [facility] Total Protein 7.3 6.4 - 8.2 06/18/2018 13:02 [facility] Albumin 3.4 3.4 - 5.0 06/18/2018 13:02 [facility] GLOBULIN - PMC 3.9 06/18/2018 13:02 [facility] ALBUMIN/GLOBULIN RATIO - PMC 0.8 06/18/2018 13:02 [facility] 06/18/2018 12:1 4 EDT 06/18/2018 12:16 EDT Katia Stone PA-C CHEMISTRY & BLOOD GAS ORDERABLES [facility] documented in this encounter Visit Diagnoses Not on filedocumented in this encounter Care Teams Jet Dyeing Machine Operator Relationship Specialty Start Date End Date Katia Stone PA-C [address] [place] [phone] PCP - General 05/02/17 documented as of this encounter
--- OUTSIDE RECORDS SUMMARY | 2023-10-13 22:26 | XMS_ITS | Encounter Summary ---
Author Organization [facility] Address [address] [place] [address] Care Team Providers Care Electronic Console Display Operator Name Role Phone Katia Stone PA-C Primary Care Provider +1- [phone] Reason for Visit * Reason Onset Date Comments Appointment Related 02/07/2020 PA REQUEST Encounter Details Date Type Department Care Team (Late st Contact Info) Description 02/07/2020 Telephone [facility] [address] [place] [address] Ulises Reinoso MD [address] [place] [address] Appointment Related (PA REQUEST) Social [...] - 02/07/2020 1327 EST PA REQUEST ECHOCARDIOGRAM [id number] 02/29/20 DYSPNEA (R06.0) VITA LIVE THANK YOU! documented in this encounter Plan of Treatment Not on file documented as of this encounter Visit Diagnoses Not on filedocumented in this encounter Care Teams Electronic Console Display Operator Relationship Specialty Start Date End Date Katia Stone, PA-C [address] [place] [phone] PCP - General 05/02/17 documented as of this encounter
--- OUTSIDE RECORDS SUMMARY | 2023-10-13 22:26 | XMS_ITS | Encounter Summary ---
Author Organization [facility] Address [address] [place] [address] Care Team Providers Care Wide Area Network Engineer Name Role Phone Katia Stone PA-C Primary Care Provider +1- [phone] Encounter Details Date Type Department Care Team (Late st Contact Info) Description 01/17/2020 Results Only [facility] [phone] Jayesh Olmos MD [address] [place] [phone] Social History Tobacco Use Types Packs/Day [...] Cortisol, S SEE COMMENTS 01/18/2020 17:[address] [facility] Comment: Test ?Result ?Flag ??Unit ?RefValue Cortisol, S ??AM Result ? 11 ?mcg/dL ??7-25 Test Performed by: [facility] [address] [place] [address] Systems Integration Manager: Pierre Andersen M.D. Ph.D.; CLIA# [id number] 01/17/2020 7:50 EST 01/17/2020 7:51 EST Jayesh Olmos MD CHEMISTRY & BLO OD GAS ORDERABLES [facility] [address] [place] [address] * (ABNORMAL) BASIC METABOLIC PANEL,RANDOM - PMC (01/17/2020 7:50 EST) [facility] Sodium 130(L) 136 - 145 mEq/L 01/17/2020 8:13 [facility] Potassium 3.7 3.5 - 5.1 mEq/L 01/17/2020 8:13 [facility] Chloride 95(L) 96 - 107 mEq/L 01/17/2020 8:13 [facility] CO2 Total 27.4 21 - 32 mEq/L 01/17/2020 8:13 [facility] Anion Gap 7.6 mEq/L 01/17/2020 8:13 [facility] BUN 10 7 - 25 mg/dl 01/17/2020 8:13 [facility] Creatinine 0.62(L) 0.70 - 1.30 mg/dl 01/17/2020 8:13 [facility] Estimated GFR >60 >60 01/17/2020 8:18 [facility] Comment: EGFR UNITS: mL/min/1.73 m 2 CKD-EPI Equation used to calculate. Glucose 91 70 - 180 mg/dl 01/17/2020 8:13 [facility] Calcium 8.4(L) 8.5 - 10.1 mg/dl 01/17/2020 8:13 [facility] 01/17/2020 7:50 EST 01/17/2020 7:51 EST Jayesh Olmos MD CHEMISTRY & BLO OD GAS ORDERABLES Performing Organization Address City/State/[facility] Co de Phone Number [facility] [address] [place] [address] documented in this encounter Visit Diagnoses Not on filedocumented in this encounter Care Teams Wide Area Network Engineer Relationship Specialty Start Date End Date Katia Stone PABijalC [address] [facility] [place] [place] [phone] PCP - General 05/02/17 documented as of this encounter
--- OUTSIDE RECORDS SUMMARY | 2023-10-13 22:26 | XMS_ITS | Encounter Summary ---
Author Organization [facility] Address [address] [place] [address] Care Team Providers Care Fabric And Accessories Estimator Name Role Phone Katia Stone PA-C Primary Care Provider +1- [phone] Encounter Details Date Type Department Care Team (Late st Contact Info) Description 01/13/2020 Results Only [facility] [phone] Jayesh Olmos MD [address] [place] [phone] Social History Tobacco Use Types Packs/Day [...] 136 - 145 mEq/L 01/13/2020 19:16 EST [facility] 01/13/2020 18:5 0 EST 01/13/2020 18:52 EST Jayesh Olmos MD CHEMISTRY & BLO OD GAS ORDERABLES Performing Organization Address [facility] Co de Phone Number [facility] [address] [place] [address] * (ABNORMAL) SODIUM (01/13/2020 13:12 EST) Sodium 126(L) 136 - 145 mEq/L 01/13/2020 13:32 EST [facility] 01/13/2020 13:1 2 EST 01/13/2020 13:15 EST Jayesh Olmos MD CHEMISTRY & BLO OD GAS ORDERABLES Performing Organization Address [facility] de Phone Number [facility] [address] [place] [address] documented in this encounter Visit Diagnoses Not on filedocumented in this encounter Care Teams Fabric And Accessories Estimator Relationship Specialty Start Date End Date Katia Stone PA-C [address] [place] [phone] PCP - General 05/02/17 documented as of this encounter
--- OUTSIDE RECORDS SUMMARY | 2023-10-13 22:26 | XMS_ITS | Encounter Summary ---
Author Organization [facility] Address [address] [place] [address] Care Team Providers Care Cost Specialist Name Role Phone Katia Stone PA-C Primary Care Provider +1- [phone] Encounter Details Date Type Department Care Team (Late st Contact Info) Description 01/15/2020 Results Only [facility] [address] [place] [address] Unknown, Provider, Social History Tobacco Use Types [...] 136 - 145 mEq/L 01/15/2020 0:[address] [facility] 01/15/2020 0:18 EST 01/15/2020 0:20 EST Provider Unknown CHEMISTRY & BLOOD GA S ORDERABLES Performing Organization Address City/State/[facility] Co de Phone Number [facility] [address] [place] [address] documented in this encounter Visit Diagnoses Not on filedocumented in this encounter Care Teams Cost Specialist Relationship Specialty Start Date End Date Katia Stone, PABijalC [address] [place] [phone] PCP - General 05/02/17 documented as of this encounter
--- OUTSIDE RECORDS SUMMARY | 2023-10-13 22:26 | XMS_ITS | Encounter Summary ---
Author Organization [facility] Address [address] [place] [address] Care Team Providers Care Tuber Machine Cutter Name Role Phone Katia Stone PA-C Primary Care Provider +1- [phone] Encounter Details Date Type Department Care Team (Late st Contact Info) Description 01/16/2020 Results Only Imaging [facility] Radiology Results [address] [place] [address] Jayesh Olmos MD [address] [place] [address] Social History Tobacco Use Types [...] 13:1 9 EST Narrative 01/16/2020 13:19 EST ?[facility]: [facility] ?[address] ?[place] [address] ?Diagnostic Imaging Report ? Signed ? Patient Name:DAVID FARFAN ? Date of :1950 ?MR Number:[id number] ? Age:69 ?Sex:M ? Category: CT ?Date [...] questions regarding this report, please contact the [facility] at [phone] ? Dictated by: Brenda Dixon MD ?D/ ?? 1319 ?? Transcribed by: SERGEY ?D/T: ? E-Signed by: Brenda Dixon MD ?D/ ?? 1528 ?? Procedure Note Brenda Dixon MD - 02/01/2020 [facility]: [address] [address] Diagnostic Imaging Report Signed Patient Name:DAVID FARFAN FAccount Number:[id number] Date of :1950 MRNumber:[id number] Age:69 Sex:M Category: CT Date ofExam:01/16/20 Procedure: CT: Thorax; with contrastAccession: [id number] Ordering Physician: Nickolas ([facility] [...] Pleural space: Loculated left pleural effusion posterolaterally [id number] by 5.4 cm in greatest transverse dimension. [...] questions regarding this report, please contact the [facility] at [phone] Dictated by: Brenda Dixon MDD/ 1319 Transcribed by: ANA/T: E-Signed by: Brenda Dixon MDD/ 1528 Jayesh Olmos MD IMG CT ORDERABL ES * XR CHEST 2 VIEWS (01/16/2020 9:51 EST) Anatomical Region Laterality Modality Computed Radiogr aphy 01/16/2020 9:51 EST Narrative 01/16/2020 9:51 EST ?[facility]: [facility] ?[address] ?[place] [address] ?Diagnostic Imaging Report ? Signed ? Patient Name:DAVID FARFAN ? Date of :1950 ?MR Number:[id number] ? Age:69 ?Sex:M ? Category: CR ?Date [...] questions regarding this report, please contact the [facility] at [phone] ? Dictated by: Brenda Dixon MD ?D/ ?? 0951 ?? Transcribed by: SERGEY ?D/T: ? E-Signed by: Brenda Dixon MD ?D/ ?? 1121 ?? Procedure Note Brenda Dixon MD - 02/01/2020 [facility]: [address] [address] Diagnostic Imaging Report Signed Patient Name:DAVID FARFAN FAccount Number:[id number] Date of :1950 MRNumber:[id number] Age:69 Sex:M Category: CR Date ofExam:01/16/20 Procedure: CR: Chest; Frontal/LAT viewsAccession: [id number] Ordering Physician: Nickolas ([facility] [...] questions regarding this report, please contact the [facility] at [phone] Dictated by: Brenda Dixon/ 0951 Transcribed by: ANA/T: E-Signed by: Brenda Dixon MDD/ 1121 Jayesh Olmos MD IMG DIAGNOSTIC IMAGING ORDERABLES documented in this encounter Visit Diagnoses Not on filedocumented in this encounter Additional Health Concerns Infection Onset Date Last Indicated Resolved Time RSV 01/31/2022 01/31/2022 02/10/2022 22:1 5 EST documented as of this encounter Care Teams Tuber Machine Cutter Relationship Specialty Start Date End Date Katia Stone, PABijalC [address] [place] [address] PCP - General 05/02/17 documented as of this encounter
--- OUTSIDE RECORDS SUMMARY | 2023-10-13 22:26 | XMS_ITS | Encounter Summary ---
Author Organization [facility] Address [address] [place] [address] Care Team Providers Care Ebay Reseller Name Role Phone Katia Stone PA-C Primary Care Provider +1- [phone] Encounter Details Date Type Department Care Team (Late st Contact Info) Description 12/12/2018 Results Only [facility] [address] [place] [address] [place] [address] Wang Vila MD [address] [facility] [address] [place] [address] Social History Tobacco Use Types [...] 4.0 - 10.5 10 3/uL 12/12/2018 22:21 [facility] RBC 3.85(L) 4.70 - 6.00 10 6/uL 12/12/2018 22:21 [facility] Hemoglobin 13.1(L) 13.5 - 18.0 g/dL 12/12/2018 22:21 [facility] HCT 36.1(L) 42.0 - 52.0 % 12/12/2018 22:21 [facility] MCV 93.8 78 - 100 fL 12/12/2018 22:21 [facility] MCH 34.0(H) 27 - 31 pg 12/12/2018 22:21 [facility] MCHC 36.3(H) 32 - 36 g/dL 12/12/2018 22:21 [facility] RDW-CV - PMC 11.9 11.5 - 14.0 % 12/12/2018 22:21 [facility] PLATELET COUNT - PMC 208 150 - 450 10 3/uL 12/12/2018 22:21 [facility] NEUTROPHILS % (AUTO) - PMC 52.5 42.0 - 75.0 % 12/12/2018 22:21 [facility] LYMPHOCYTES % (AUTO) - PMC 32.3 16.0 - 52.0 % 12/12/2018 22:21 [facility] MONOCYTES % (AUTO) - PMC 7.8 1.0 - 11.0 % 12/12/2018 22:21 [facility] EOSINOPHILS % (AUTO) - PMC 5.5 0.0 - 7.0 % 12/12/2018 22:21 [facility] BASOPHILS % (AUTO) - PMC 1.4 0.0 - 4.0 % 12/12/2018 22:21 [facility] NUCLEATED RBC % (AUTO) - PMC 0.0 <1 % 12/12/2018 22:21 [facility] NEUTROPHILS # (AUTO) - PMC 5.3 1.5 - 6.6 10 3/uL 12/12/2018 22:21 [facility] LYMPHOCYTES # (AUTO) - PMC 3.3 1.0 - 3.5 10 3/uL 12/12/2018 22:21 [facility] MONOCYTES # (AUTO) - PMC 0.8 <1.0 10 3/uL 12/12/2018 22:21 [facility] EOSINOPHILS # (AUTO) - PMC 0.6 <0.7 10 3/uL 12/12/2018 22:21 [facility] BASOPHILS # (AUTO) - PMC 0.1 <0.1 10 3/uL 12/12/2018 22:21 [facility] NUCLEATED RBC # (AUTO) - PMC 0.00 <1 10 3/uL 12/12/2018 22:21 [facility] 12/12/2018 22:1 5 EDT 12/12/2018 22:19 EDT Wang Vila MD PACKAGES & DNA PROBE ORDERABLES [facility] documented in this encounter Visit Diagnoses Not on filedocumented in this encounter Care Teams Ebay Reseller Relationship Specialty Start Date End Date Katia Stone PA-C [address] [place] [address] PCP - General 05/02/17 documented as of this encounter
--- OUTSIDE RECORDS SUMMARY | 2023-10-13 22:26 | XMS_ITS | Encounter Summary ---
Author Organization [facility] Address [address] [place] [address] Care Team Providers Care Pharmacy Grad Intern Name Role Phone Katia Stone PA-C Primary Care Provider +1- [phone] Encounter Details Date Type Department Care Team (Late st Contact Info) Description 08/13/2018 Historical Results Only [facility] [address] [place], [place] [address] Katia Stone, MINGO [address] [place] [address] Social History Tobacco Use Types [...] Sodium 125(L) 136 - 145 08/13/2018 12:52 [facility] Potassium 4.9 3.5 - 5.1 08/13/2018 12:52 [facility] Chloride 91(L) 96 - 107 08/13/2018 12:52 [facility] CO2 Total 25.4 21 - 32 08/13/2018 12:52 [facility] Anion Gap 8.6 08/13/2018 12:52 [facility] BUN 7 7 - 25 08/13/2018 12:52 [facility] Creatinine 0.59(L) 0.7 - 1.30 08/13/2018 12:52 [facility] Estimated GFR >60 >60 08/13/2018 12:53 [facility] Comment: EGFR UNITS: mL/min/1.73 m 2 CKD-EPI Equation used to calculate. Glucose 88 FASTIN -99 08/13/2018 12:52 [facility] Calcium 8.1(L) 8.5 - 10.5 08/13/2018 12:52 [facility] CALCIUM,CORRECTE D - PMC 8.7 8.5 - 10.5 08/13/2018 12:52 [facility] BILIRUBIN - PMC 0.20 0.00 - 1.00 08/13/2018 12:52 [facility] AST 40(H) 15 - 37 08/13/2018 12:52 [facility] ALT 45 12 - 78 08/13/2018 12:52 [facility] Alkaline Phosphatase 112 46 - 116 08/13/2018 12:52 EDT [facility] Total Protein 7.1 6.4 - 8.2 08/13/2018 12:52 [facility] Albumin 3.2(L) 3.4 - 5.0 08/13/2018 12:52 T [facility] GLOBULIN - PMC 3.9 08/13/2018 12:52 T [facility] ALBUMIN/GLOBULIN RATIO - PMC 0.8 08/13/2018 12:52 T [facility] 08/13/2018 11:2 8 EDT 08/13/2018 11:37 EDT Katia Stone PA-C CHEMISTRY & BLOOD GAS ORDERABLES [facility] documented in this encounter Visit Diagnoses Not on filedocumented in this encounter Care Teams Pharmacy Grad Intern Relationship Specialty Start Date End Date Katia Stone PA-C [address] [place] [address] PCP - General 05/02/17 documented as of this encounter
--- OUTSIDE RECORDS SUMMARY | 2023-10-13 22:26 | XMS_ITS | Encounter Summary ---
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 From after-visit notes 04/12, it is clear to story writer that provider intends for pt to see Dr. Browne at [place]. Caller, shoe parts caser, and pt are unaware of a referral being sent to [place], and seem to think that provider is still following care. Please call pt and shoe parts caser directly to let them know exactly what the plan of care is. * Telephone Encounter - Brenda Bocanegra - 05/01/2020 1409 EST Spoke with Nila. We don't have much device information here as the patient is managed by [facility]. They are wanting follow up from Dr. Rosenberg regarding the next steps for pt's device care. Told them I would see what I can do to help. * Telephone Encounter - Haja Pavon - 05/01/2020 1304 EST Nila @ [facility] called to follow-up on pacemaker issues (problems [...] documented as of this encounter Care Teams Activities Director Relationship Specialty Start Date End Date Katia Stone, PABijalC [address] [place] [phone] PCP - General 05/02/17 documented as of this encounter
--- OUTSIDE RECORDS SUMMARY | 2023-10-13 22:26 | XMS_ITS | Encounter Summary ---
Author Organization [facility] Address [address] [place] [address] Care Team Providers Care Recycler Name Role Phone Katia Stone PA-C Primary Care Provider +1- [phone] Encounter Details Date Type Department Care Team (Late st Contact Info) Description 07/19/2018 Historical Results Only [facility] [address] [place] [address] Vick Limon MD [address] [place] [address] Social History Tobacco Use Types [...] WBC 8.1 4.0 - 10.5 07/19/2018 18:47 [facility] RBC 3.65(L) 4.70 - 6.00 07/19/2018 18:47 [facility] Hemoglobin 12.5(L) 13.5 - 18.0 07/19/2018 18:47 [facility] HCT 34.2(L) 42.0 - 52.0 07/19/2018 18:47 [facility] MCV 93.7 78 - 100 07/19/2018 18:47 [facility] MCH 34.2(H) 27 - 31 07/19/2018 18:47 [facility] MCHC 36.5(H) 32 - 36 07/19/2018 18:47 [facility] RDW-CV - PMC 12.4 11.5 - 14.0 07/19/2018 18:47 [facility] PLATELET COUNT - PMC 158 150 - 450 07/19/2018 18:47 [facility] NEUTROPHILS % (AUTO) - PMC 63.5 42.0 - 75.0 07/19/2018 18:47 [facility] LYMPHOCYTES % (AUTO) - PMC 22.6 16.0 - 52.0 07/19/2018 18:47 [facility] MONOCYTES % (AUTO) - PMC 9.6 1.0 - 11.0 07/19/2018 18:47 [facility] EOSINOPHILS % (AUTO) - PMC 2.9 0.0 - 7.0 07/19/2018 18:47 [facility] BASOPHILS % (AUTO) - PMC 0.7 0.0 - 4.0 07/19/2018 18:47 [facility] NUCLEATED RBC % (AUTO) - PMC 0.0 <1 07/19/2018 18:47 [facility] NEUTROPHILS # (AUTO) - PMC 5.2 1.5 - 6.6 07/19/2018 18:47 [facility] LYMPHOCYTES # (AUTO) - PMC 1.8 1.0 - 3.5 07/19/2018 18:47 [facility] MONOCYTES # (AUTO) - PMC 0.8 <1.0 07/19/2018 18:47 [facility] EOSINOPHILS # (AUTO) - PMC 0.2 <0.7 07/19/2018 18:47 [facility] BASOPHILS # (AUTO) - PMC 0.1 <0.1 07/19/2018 18:47 [facility] NUCLEATED RBC # (AUTO) - PMC 0.00 <1 07/19/2018 18:47 [facility] 07/19/2018 18:3 0 EDT 07/19/2018 18:34 EDT Vick Limon MD PACKAGES & DNA PROBE ORDERABLES [facility] * (ABNORMAL) BASIC METABOLIC PANEL,RANDOM - PMC (07/19/2018 18:30 EDT) Sodium 120(L) 136 - 145 07/19/2018 18:52 [facility] Potassium 4.4 3.5 - 5.1 07/19/2018 18:52 [facility] Chloride 83(L) 96 - 107 07/19/2018 18:52 [facility] CO2 Total 24.6 21 - 32 07/19/2018 18:52 [facility] Anion Gap 13.4 07/19/2018 18:52 [facility] BUN 8 7 - 25 07/19/2018 18[facility] Creatinine 0.67(L) 0.7 - 1.30 07/19/2018 18:52 [facility] Estimated GFR >60 >60 07/19/2018 19:01 [facility] Comment: EGFR UNITS: mL/min/1.73 m 2 CKD-EPI Equation used to calculate. Glucose 78 70 - 180 07/19/2018 18:52 [facility] Calcium 8.2(L) 8.5 - 10.5 07/19/2018 18:52 [facility] 07/19/2018 18:3 0 EDT 07/19/2018 18:34 EDT Vick Limon MD CHEMISTRY & BLOOD GA S ORDERABLES Performing Organization Address City/[facility]/ZIP Co de Phone Number [facility] * POCT GLUCOSE (NURSING) - PMC (07/19/2018 18:21 EDT) POC CAPILLARY GLUCOSE - [facility] 86 70 - 100 07/19/2018 18:23 EDT [facility] 07/19/2018 18:2 1 EDT 07/19/2018 18:23 EDT Vick Limon MD POINT OF CARE TEST O RDERABLES [facility] documented in this encounter Visit Diagnoses Not on filedocumented in this encounter Care Teams Recycler Relationship Specialty Start Date End Date Katia Sotne, PABijalC [address] [place] [phone] PCP - General 05/02/17 documented as of this encounter
--- OUTSIDE RECORDS SUMMARY | 2023-10-13 22:26 | XMS_ITS | Encounter Summary ---
Author Organization [facility] Address [address] [place] [address] Care Team Providers Care Felt Hat Mellowing Machine Operator Name Role Phone Katia Stone PA-C Primary Care Provider +1- [phone] Encounter Details Date Type Department Care Team (Late st Contact Info) Description 08/20/2018 Historical Results Only [facility] [address] [place], [place] [address] Katia Stone, MINGO [address] [place] [address] Social History Tobacco Use Types [...] Sodium 121(L) 136 - 145 08/20/2018 12:38 [facility] Potassium 4.7 3.5 - 5.1 08/20/2018 12:38 [facility] Chloride 87(L) 96 - 107 08/20/2018 12:38 [facility] CO2 Total 28.2 21 - 32 08/20/2018 12:38 [facility] Anion Gap 5.8 08/20/2018 12:38 [facility] BUN 7 7 - 25 08/20/2018 12:38 [facility] Creatinine 0.59(L) 0.7 - 1.30 08/20/2018 12:38 [facility] Estimated GFR >60 >60 08/20/2018 12:49 [facility] Comment: EGFR UNITS: mL/min/1.73 m 2 CKD-EPI Equation used to calculate. Glucose 88 FASTIN -99 08/20/2018 12:38 [facility] Calcium 8.6 8.5 - 10.5 08/20/2018 12:38 [facility] CALCIUM,CORRECTE D - PMC 9.0 8.5 - 10.5 08/20/2018 12:38 [facility] BILIRUBIN - PMC 0.60 0.00 - 1.00 08/20/2018 12:38 [facility] AST 41(H) 15 - 37 08/20/2018 12:38 [facility] ALT 47 12 - 78 08/20/2018 12:38 [facility] Alkaline Phosphatase 86 46 - 116 08/20/2018 12:38 EDT [facility] Total Protein 7.5 6.4 - 8.2 08/20/2018 12:38 [facility] Albumin 3.5 3.4 - 5.0 08/20/2018 12:38 [facility] GLOBULIN - PMC 4.0 08/20/2018 12:38 [facility] ALBUMIN/GLOBULIN RATIO - PMC 0.8 08/20/2018 12:38 [facility] 08/20/2018 11:4 8 EDT 08/20/2018 12:07 EDT Katia Stone PA-C CHEMISTRY & BLOOD GAS ORDERABLES [facility] documented in this encounter Visit Diagnoses Not on filedocumented in this encounter Care Teams Felt Hat Mellowing Machine Operator Relationship Specialty Start Date End Date Katia Stone PA-C [address] [place] [address] PCP - General 05/02/17 documented as of this encounter
--- OUTSIDE RECORDS SUMMARY | 2023-10-13 22:26 | XMS_ITS | Encounter Summary ---
Author Organization [facility] Address [address] [place] [address] Care Team Providers Care Shoe Folder Name Role Phone Katia Stone PA-C Primary Care Provider +1- [phone] Reason for Visit * Reason Onset Date Comments Coordination Of Care 11/12/2019 Encounter Details Date Type Department Care Team (Late st Contact Info) Description 11/12/2019 Telephone [facility] Cardiology - [place] [address] Belinda Falk, TISH Coordination Of [...] RN - 11/12/2019 1036 EDT An from [facility] calling in to report that patient has had fallen 3 times yesterday. documented in this encounter Plan of Treatment Not on file documented as of this encounter Visit Diagnoses Not on filedocumented in this encounter Care Teams Shoe Folder Relationship Specialty Start Date End Date Katia Stone, BELLAC [address] [place] [address] PCP - General 05/02/17 documented as of this encounter
--- OUTSIDE RECORDS SUMMARY | 2023-10-13 22:26 | XMS_ITS | Encounter Summary ---
Author Organization [facility] Address [address] [place] [address] Care Team Providers Care Gun Numberer Name Role Phone Katia Stone PA-C Primary Care Provider +1- [phone] Encounter Details Date Type Department Care Team (Late st Contact Info) Description 06/12/2018 Historical Results Only [facility] [address] [place], [place] [address] Katia Stone, MINGO [address] [place] [address] Social History Tobacco Use Types [...] Sodium 125(L) 136 - 145 06/12/2018 17:52 [facility] Potassium 5.0 3.5 - 5.1 06/12/2018 17:52 [facility] Chloride 89(L) 96 - 107 06/12/2018 17:52 [facility] CO2 Total 28.7 21 - 32 06/12/2018 17:52 [facility] Anion Gap 7.3 06/12/2018 17:52 [facility] BUN 8 7 - 25 06/12/2018 17:52 [facility] Creatinine 0.60(L) 0.7 - 1.30 06/12/2018 17:52 [facility] Estimated GFR >60 >60 06/12/2018 17:59 [facility] Comment: EGFR UNITS: mL/min/1.73 m 2 CKD-EPI Equation used to calculate. Glucose 84 70 - 180 06/12/2018 17:52 [facility] Calcium 8.2(L) 8.5 - 10.5 06/12/2018 17:52 [facility] CALCIUM,CORRECTE D - PMC 8.7 8.5 - 10.5 06/12/2018 17:52 [facility] BILIRUBIN - PMC 0.30 0.00 - 1.00 06/12/2018 17:52 [facility] AST 39(H) 15 - 37 06/12/2018 17:52 [facility] ALT 52 12 - 78 06/12/2018 17:52 [facility] Alkaline Phosphatase 93 46 - 116 06/12/2018 17:52 EDT [facility] Total Protein 7.1 6.4 - 8.2 06/12/2018 17:52 T [facility] Albumin 3.4 3.4 - 5.0 06/12/2018 17:52 T [facility] GLOBULIN - PMC 3.7 06/12/2018 17:52 T [facility] ALBUMIN/GLOBULIN RATIO - PMC 0.9 06/12/2018 17:52 T [facility] 06/12/2018 16:4 6 EDT 06/12/2018 16:47 EDT Katia Stone PA-C CHEMISTRY & BLOOD GAS ORDERABLES [facility] documented in this encounter Visit Diagnoses Not on filedocumented in this encounter Care Teams Gun Numberer Relationship Specialty Start Date End Date Katia Stone PA-C [address] [place] [address] PCP - General 05/02/17 documented as of this encounter
--- OUTSIDE RECORDS SUMMARY | 2023-10-13 22:26 | XMS_ITS | Encounter Summary ---
Author Organization [facility] Address [address] [place] [address] Care Team Providers Care Network Operations Project Manager Name Role Phone Katia Stone PA-C Primary Care Provider +1- [phone] Encounter Details Date Type Department Care Team (Late st Contact Info) Description 12/12/2018 Results Only Imaging [facility] Radiology Results [address] [place] [address] Wang Vila MD [address] [facility], [address] [place] [address] Social History Tobacco Use Types [...] 22:1 5 EDT Narrative 12/12/2018 22:15 EDT [facility] ?[address] ?[place] [address] ?Diagnostic Imaging Report ? Signed ? Patient Name:ADOLPH,DAVID Martinez ? Date of :1950 ?MR Number:[id number] ? Age:68 ?Sex:M ? Category: CR ?Date [...] questions regarding this report, please contact the [facility] at [phone] ? Dictated by: Alma Sherwood DO ?D/ ?? 2215 ?? Transcribed by: GABE ?D/T: ? E-Signed by: Alma Sherwood DO ?D/ ?? 2327 ? Procedure Note Alma Sherwood MD - 01/09/2019 [facility]: [address] [address] Diagnostic Imaging Report Signed Patient Name:DAVID FARFAN FAccount Number:[id number] Date of :1950 MRNumber:[id number] Age:68 Sex:M Category: CR Date ofExam:12/12/18 Procedure: CR: Chest; Frontal/LAT viewsAccession: [id number] Ordering Physician: Wang Vila MD CC: [...] questions regarding this report, please contact the [facility] [place] at [phone] Dictated by: Alma Sherwood DOD/ 2214 Transcribed by: JOSEPH/T: E-Signed by: Alma Sherwood DOD/ 8402 Wang Vila MD IMG DIAGNOSTIC IMAGI NG ORDERABLES documented in this encounter Visit Diagnoses Not on filedocumented in this encounter Additional Health Concerns Infection Onset Date Last Indicated Resolved Time RSV 01/31/2022 01/31/2022 02/10/2022 22:1 5 EST documented as of this encounter Care Teams Network Operations Project Manager Relationship Specialty Start Date End Date Katia Stone, MINGO [address] [place] [phone] PCP - General 05/02/17 documented as of this encounter
--- OUTSIDE RECORDS SUMMARY | 2023-10-13 22:26 | XMS_ITS | Encounter Summary ---
Author Organization [facility] Address [address] [place] [address] Care Team Providers Care Crime Lab Analyst Name Role Phone Katia Stone PA-C Primary Care Provider +1- [phone] Encounter Details Date Type Department Care Team [...] on filedocumented in this encounter Care Teams Crime Lab Analyst Relationship Specialty Start Date End Date Katia Stone, BELLAC [address] [place] [phone] PCP - General 05/02/17 documented as of this encounter
--- OUTSIDE RECORDS SUMMARY | 2023-10-13 22:26 | XMS_ITS | Encounter Summary ---
Author Organization [facility] Address [address] [place] [address] Care Team Providers Care Electromechanical Assembler Name Role Phone Katia Stone PA-C Primary Care Provider +1- [phone] Encounter Details Date Type Department Care Team (Late st Contact Info) Description 01/15/2020 Results Only [facility] [phone] Jayesh Olmos MD [address] [place] [phone] Social History Tobacco Use Types Packs/Day [...] * (ABNORMAL) MAGNESIUM (01/15/2020 6:16 EST) Pathologist [facility] Magnesium 1.6(L) 1.8 - 2.4 mg/dl 01/15/2020 7:55 [facility] 01/15/2020 6:16 EST 01/15/2020 7:24 EST Jayesh Olmos MD CHEMISTRY & BLO OD GAS ORDERABLES [facility] [address] [place] [address] * (ABNORMAL) HEPATIC & CMP COMBO,FASTING - PMC (01/15/2020 6:16 EST) Sodium 125(L) 136 - 145 mEq/L 01/15/2020 7:55 [facility] Potassium 3.8 3.5 - 5.1 mEq/L 01/15/2020 7:55 [facility] Chloride 93(L) 96 - 107 mEq/L 01/15/2020 7:55 [facility] CO2 Total 30.1 21 - 32 mEq/L 01/15/2020 7:55 [facility] Anion Gap 3.9 mEq/L 01/15/2020 7:55 [facility] BUN 10 7 - 25 mg/dl 01/15/2020 7:55 [facility] Creatinine 0.67(L) 0.70 - 1.30 mg/dl 01/15/2020 7:55 [facility] Estimated GFR >60 >60 01/15/2020 7:56 [facility] Comment: EGFR UNITS: mL/min/1.73 m 2 CKD-EPI Equation used to calculate. Glucose 92 74 - 106 mg/dl 01/15/2020 7:55 [facility] Calcium 8.2(L) 8.5 - 10.1 mg/dl 01/15/2020 7:55 [facility] CALCIUM,CORRECTE D - PMC 9.2 8.5 - 10.5 mg/dl 01/15/2020 7:55 [facility] BILIRUBIN - PMC 0.60 0.00 - 1.00 mg/dl 01/15/2020 7:55 [facility] AST 46(H) 15 - 37 U/L 01/15/2020 7:55 [facility] ALT 33 16 - 63 U/L 01/15/2020 7:55 [facility] Alkaline Phosphatase 82 46 - 116 U/L 01/15/2020 7:55 [facility] Total Protein 7.0 6.4 - 8.2 g/dl 01/15/2020 7:55 [facility] Albumin 2.8(L) 3.4 - 5.0 g/dl 01/15/2020 7:55 [facility] GLOBULIN - PMC 4.2 g/dl 01/15/2020 7:55 [facility] ALBUMIN/GLOBULIN RATIO - PMC 0.6 01/15/2020 7:55 [facility] 01/15/2020 6:16 EST 01/15/2020 7:24 EST Jayesh Olmos MD CHEMISTRY & BLO OD GAS ORDERABLES [facility] [address] [place] [address] * (ABNORMAL) COMPLETE BLOOD COUNT (01/15/2020 6:16 EST) WBC 4.4 4.0 - 10.5 10 3/uL 01/15/2020 7:45 [facility] RBC 3.26(L) 4.70 - 6.00 10 6/uL 01/15/2020 7:45 [facility] Hemoglobin 11.3(L) 13.5 - 18.0 g/dL 01/15/2020 7:45 [facility] HCT 31.2(L) 42.0 - 52.0 % 01/15/2020 7:45 [facility] MCV 95.7 78 - 100 fL 01/15/2020 7:45 [facility] MCH 34.7(H) 27 - 31 pg 01/15/2020 7:45 [facility] MCHC 36.2(H) 32 - 36 g/dL 01/15/2020 7:45 [facility] RDW-CV - PMC 12.8 11.0 - 14.8 % 01/15/2020 7:45 [facility] PLATELET COUNT - PMC 163 150 - 450 10 3/uL 01/15/2020 7:45 [facility] 01/15/2020 6:16 EST 01/15/2020 7:24 EST Jayesh Olmos MD HEMATOLOGY & PF 4 ORDERABLES Performing Organization Address City/State/[facility] Co de Phone Number [facility] [address] [place] [address] documented in this encounter Visit Diagnoses Not on filedocumented in this encounter Care Teams Electromechanical Assembler Relationship Specialty Start Date End Date Katia Stone, PABijalC [address] [place] [phone] PCP - General 05/02/17 documented as of this encounter
--- OUTSIDE RECORDS SUMMARY | 2023-10-13 22:27 | XMS_ITS | Encounter Summary ---
Author Organization [facility] Address [address] [place] [address] Care Team Providers Care Regional Economist Name Role Phone Katia Stone PA-C Primary Care Provider +1- [phone] Encounter Details Date Type Department Care Team (Late st Contact Info) Description 06/11/2017 Results Only Imaging [facility] Adult Primary Care - [address] [id number] Michael Pratt MD [facility] [place] [address] Social History Tobacco Use Types [...] - there is no report. Procedure Note MEMBER SERVICES COORDINATOR, IMAGING - 06/13/2017 This is an outside study - there is no report. Michael Pratt MD IMG OTHER IMAGING OR DERABLES documented in this encounter Visit Diagnoses Not on filedocumented in this encounter Care Teams Regional Economist Relationship Specialty Start Date End Date Katia Stone, PABijalC [address] [place] [address] PCP - General 05/02/17 documented as of this encounter
--- OUTSIDE RECORDS SUMMARY | 2023-10-13 22:27 | XMS_ITS | Encounter Summary ---
Author Organization [facility] Address [address] [place] [address] Care Team Providers Care Case Specialist Name Role Phone Katia Stone PA-C Primary Care Provider +1- [phone] Reason for Visit * Reason Onset Date Comments Other 05/29/2017 Encounter Details Date Type Department Care Team (Late st Contact Info) Description 05/29/2017 Telephone [facility] Cardiology - [address] [place], [place] [id number] Daija Mariee, RN Other Social History Tobacco [...] Spoke with nurse Yessica at [facility] She spoke with pt today and he had 2 episodes of sharp pains that lasted seconds at the pacemaker site Yessica- RN would like a call back with plan She states pt has had a 11# weight gain, denies shortness of breath Daughter in law takes care of meds- [phone] Spoke with pt- he had 2 quick [...] on filedocumented in this encounter Care Teams Case Specialist Relationship Specialty Start Date End Date Katia Stone, MIGNO [address] [place] [address] PCP - General 05/02/17 documented as of this encounter
--- OUTSIDE RECORDS SUMMARY | 2023-10-13 22:27 | XMS_ITS | Encounter Summary ---
Author Organization [facility] Address [address] [place] [address] Care Team Providers Care Veterinary Nurse Name Role Phone Katia Stone PA-C Primary Care Provider +1- [phone] Reason for Visit * Reason Comments Shortness of Breath Encounter Details Date Type Department Care Team (Late st Contact Info) Description 06/11/2017 13:40 EDT Office Visit [facility] Cardiology [address] [id number] Tony Rosenberg MD [address] [place] [address] [place] [phone] SOB (shortness of breath) (Primary Dx) [...] Rosenberg MD - 06/11/2017 0000 EDT [facility] CARDIOLOGY - CRESTLINE PROGRESS / FOLLOWUP NOTE - 06/11/2017 PROBLEM LIST: 1. Third-degree heart block. a. Status post dual chamber pacemaker insertion. b. Pericardial effusion. c. Pacemaker generator lead repositioning and pericardiocentesis. 2. Large pleural effusions. 3. Hypertension. 4. Hyponatremia. SUBJECTIVE: Mr Mera was seen at the [facility] after his recent hospitalization at the [facility] for AV block. He had a [...] substantial bilateral pleural effusions. Echocardiogram done in [facility] shows preserved LV systolic [...] Mr Mera to be admitted to the [facility] tomorrow for bilateral thoracentesis. Tony Rosenberg MD 03 51 PM - Tony Rosenberg MD ln Dictation ID: [id number] cc: Shailesh Torres MD, [address] [address] Katia Mccallum PA-C, [place] [address] [address] [place] [address] documented in this encounter Plan of Treatment Not on file documented as of this encounter Visit Diagnoses Diagnosis SOB (shortness of breath)- Primary Shortness of breath documented in this encounter Care Teams Veterinary Nurse Relationship Specialty Start Date End Date Katia Stone PA-C [facility] [address] [place] [phone] PCP - General 05/02/17 documented as of this encounter
--- OUTSIDE RECORDS SUMMARY | 2023-10-13 22:27 | XMS_ITS | Encounter Summary ---
Author Organization [facility] Address [address] [place] [address] Care Team Providers Care Process Manager Name Role Phone Katia Stone PA-C Primary Care Provider [phone] Reason for Referral * Follow Up (3 - 10 Business Days) - New Request Specialty Diagnoses / Procedures Referred By Contac t Referred To Contact Diagnoses Hyponatremia Pericardial effusion Heart block Acute on chronic diastolic congestive heart failure (HCC-CMS) Acute pericarditis, unspecified type Vini Mathis MD [address] [place] [phone] Katia Stone PA-C [facility] [address] [place] [address] Referral ID Status Reason Start Date Expiration Date Visits Requested Visits Authorized [id number] New Request Continuity of Care 05/27/2017 1 1 Question Answer Reason for Request: post hosp f/u visit Reason for Visit * Reason Comments Chest Pain Patient arrives as [place] [facility] from [facility] for pleuritic chest pain and new diagnosis CHF after pacemaker placement at [facility] two weeks ago. Dyspnea with exertion, breath sounds course crackles. Alert and oriented. Encounter Details Date Type Department Care Team (Late st Contact Info) Description 05/20/2017 23:34 EDT - 05/27/2017 14:50 EDT Hospital Encounter [facility] Cardiac/Telemetry Unit [address] [place] [address] Laly Kim MD [address] [phone] Akash Reyes MD [address] [place] [phone] Andres Luis MD [address] [place] [phone] Tony Rosenberg MD [address] [place] [phone] Seng Brody Sa, MD [address] [place] [phone] Hyponatremia (Primary Dx); Pericardial effusion; Heart block; [...] Acute on chronic diastolic congestive heart failure ([facility]-H[facility]) 05/01/2017 05/27/2017 Hospital Course David Mera is [...] presented to [facility] ED 05/20 with orthopnea and cough, and CT chest showed pericardial effusion. He was transferred to [facility] ED for pericardiocentesis. In the ED he [...] Component Value Units Date/Time Respiratory Virus Detection [[id number]] Collected: 05/26/17 1157 Lab Status: Preliminary result Specimen: Nasopharynx Updated: 05/27/17 1425 Result No RSV, Influenza A, or Influenza B detected by PCR Result No Metapneumovirus detected by PCR. Result Delay in some virus(es) result(s), testing being repeated and/or confirmed. Anaerobe Culture/Smear (inc. aerobes), Fluid [[id number]] Collected: 05/23/17 0747 Lab Status: Preliminary result Specimen: FOSMIC from Pericardial Fluid Updated: 05/25/17 1146 Gram Smear Result Few Polys No bacteria seen Result No growth Fungus Culture/Smear, Other [[id number]] Collected: 05/23/17 0747 Lab Status: Preliminary result [...] 05/01/2017 Discharge Follow Up Appointments Scheduled with [facility] Upcoming Appointments Jun 04, 2017 16:00 EDT Post Hospital Visit with Tony Rosenberg MD [facility] Cardiology [facility] (--) [address] [facility] [address] Appointments Outside of [facility] We Will Schedule Follow-up appointments and procedures Amb Consult/Follow Up Primary Care Physician Reason for Request: post hosp f/u visit Authorizing Provider: Vini Mathis MD Additional Information: Cardiology follow up FriJune 04, 2017 at [address] Justin Rosenberg at the [facility]. You should be notified of appointment time. If you do not head by FriJune 01, please call [phone] to find out the time. Cardiology follow up on June 16, 2017 at 2:[address] Torres at the [facility] haspreviously scheduled. Clinic number [id number] Studies We Will Schedule Follow-up labs and [...] Vini Mathis MD Internal Medicine PGY-1 Pager: [phone] 05/27/2017 20:52 Associated attestation - Seng Brody Sa, MD - 05/30/2017 1206 EDT Attending Attestation: I saw and evaluated the patient 05/27. I discussed the case with the resident/DAM WORKER/fellow and agree with the findings and plan as documented above. Seng person Sa, MD Cardiac Electrophysiology documented in this encounter Discharge Instructions * Appointments* Coleen Yañez NP - 05/27/2017 10:25 EDT Cardiology follow up FriJune 04, 2017 at [address] Justin Rosenberg at the [facility]. You should be notified of appointment time. If you do not head by FriJune 01, please call [phone] to find out the time. Cardiology follow up on June 16, 2017 at 2:[address] Torres at the [facility] haspreviously scheduled. Clinic number [id number] * Discharge Instr - Other Orders* Melida [...] Care Everywhere. * HEART FAILURE: AVOIDING TRIGGERS (UZBEK) documented in this encounter Medications at Time [...] home on 05/27 without home health services. Rcahna Villatoro RN #[id number] * Vini Mathis MD [...] knees MSK: Normal bulk and tone. 5/5 employment legal assistant strength SKIN: No lesions, bruises, or rashes [...] initially hypertensive, but now normo-hypotensive. - Holding HOSPITAL FELLOW lisinopril ?? Chronic diastolic heart failure: Volume [...] 05/26/17. I discussed the case with the resident/DAM WORKER/fellow and agree with the findings and plan [...] knees MSK: Normal bulk and tone. 5/5 employment legal assistant strength SKIN: No lesions, bruises, or rashes [...] initially hypertensive, but now normo-hypotensive. - Holding HOSPITAL FELLOW lisinopril ?? Chronic diastolic heart failure: currently [...] knees MSK: Normal bulk and tone. 5/5 employment legal assistant strength SKIN: No lesions, bruises, or rashes [...] initially hypertensive, but now normo-hypotensive. - Holding HOSPITAL FELLOW lisinopril ?? Chronic diastolic heart failure: currently [...] Landry M.D., PGY-1 Internal Medicine Resident Pager [phone] 05/24/2017 10:04 Attestation statement: Supervising Physician I [...] knees MSK: Normal bulk and tone. 5/5 employment legal assistant strength SKIN: No lesions, bruises, or rashes [...] initially hypertensive, but now normo-hypotensive. - Holding HOSPITAL FELLOW lisinopril ?? Chronic diastolic heart failure: currently [...] Landry M.D., PGY-1 Internal Medicine Resident Pager [phone] 05/23/2017 9:11 Attestation statement: Supervising Physician. I [...] knees MSK: Normal bulk and tone. 5/5 employment legal assistant strength SKIN: No lesions, bruises, or rashes [...] initially hypertensive, but now normo-hypotensive. - Holding HOSPITAL FELLOW lisinopril ?? Chronic diastolic heart failure: currently [...] Landry M.D., PGY-1 Internal Medicine Resident Pager [phone] 05/22/2017 8:50 Attestation statement: I saw and [...] Chart: Yes, previous copy on file @ [facility] DIRECTIVES FOR FINANCES: TRANSPORTATION: Transportation: Family CULTURAL, CONFUCIANISM and/or LANGUAGE factors affecting health care/discharge planning: [...] AID - [address] - [place], [place] - [address] [facility] [phone] [facility] ([facility] - [facility] [place] - [address] [facility] [address] [facility] [facility] [address] Home Health: Other: POST HOSPITAL TRANSITION PLAN: Plan d/c to his son, Catarina, house in [place] Desi Villatoro RN 05/21/2017 13:12 * Desi Villatoro RN - 05/21/2017 0945 EDT 05/21: Met with patient. Dr. Rosenberg is at the bedside. Plan will be pericardiocentesis and reposition of pacer lead. I will follow up with patient later today. Desi Villatoro RN [facility] #[id number] * Jayne Landry MD - 05/21/2017 0750 EDT Cardiology Progress note Service Date: 05/21/2017 [...] knees MSK: Normal bulk and tone. 5/5 employment legal assistant strength SKIN: No lesions, bruises, or rashes [...] will hold lisinopril for now. - Holding HOSPITAL FELLOW lisinopril ?? Chronic diastolic heart failure: currently volume overloaded. Needs diuresis after resolution of pericardial effusion. - Holding Lasix/chlorthalidone in setting of pericardial effusion - Strict I&O - 1.2 L fluid restriction as above - Daily weights - Daily BUN, Cr VTE Prophylaxis Held pending pericardiocentesis Discharge Plan Uncertain at this time Jayne Landry M.D., PGY-1 Internal Medicine Resident Pager [phone] 05/21/2017 8:01 * Ester Yanes MD - 05/21/2017 0620 EDT PATIENT CONSENT TO CARDIOVASCULAR CATHETERIZATION OR INTERVENTION: I, Ester Yanes MD, have explained the risks and benefits of cardiac catheterization and/or intervention to the patient (or responsible alliance party) and have answered the patient's (or responsible alliance party's) questions. To the best of my knowledge, the patient (or responsible alliance party) has been adequately informed. The patient (or responsible alliance party) has consented to the interventional cardiac procedure. As part of the consent we reviewed that, like surgical procedures, interventional procedures require aggressive short term support to determine the potential benefits of the procedures. For this reason, the patient (or responsible alliance party) has agreed to remain FULL CODE for a minimum of 48 hours aft er the procedure. Ester Yanes MD Telepathist PGY-5 05/20/2017 23:30 documented in this encounter [...] smoker, 1-2 beers 1-2x/week, lives alone in [place] Allergies: Reviewed No Known Allergies Exam: General [...] will hold lisinopril for now. - Holding HOSPITAL FELLOW lisinopril Chronic diastolic heart failure: with some [...] outpatient, avoid thiazide diuretics Vladimir Crowe MD [facility] Transplant Medical Certification Specialist Senior Data Modeler of Transplant Programs 05/25/2017 11:46 * Vladimir [...] the assessment and plan. Vladimir Crowe MD [facility] Transplant Medical Certification Specialist Senior Data Modeler of Transplant Programs 05/24/2017 12:32 * Elliot [...] TIME. PT IN ER ROOM 8, ON LINING CLOSER, NIBP, AND SPO2, ASSESSMENT NOTED, * Tony Navarro - 05/20/2017 2247 EDT Blood drawn via saline lock per protocol, tiger tube(s) sent to lab per order. * Laly Kim MD - 05/20/2017 2224 EDT DOS: 05/20/2017 Chief Complaint Patient presents with ??? Chest Pain Patient arrives as transfer from [facility] for pleuritic chest pain and new diagnosis CHF after pacemaker placement at [facility] two weeks ago. Dyspnea with exertion, breath sounds course crackles. Alert and oriented. HPI HPI Comments: I, Deana Bingham, am scribing for Laly Kim, * while he/she is personallyperforming the service. Deana Bingham 05/20/2017 22:25 David Mera is a 66 y.o. male with a history of heart block AV third degree, HTN, acute on chronic CHF, who presents as a transfer from [place] with pericardial effusion. Pt had pacemaker placed [...] appears to be a good tracing. Attending manager private not available for acute interpretation. Radiology orders: [...] for problems Not Given Final Accession number [id number] Final CREATININE, URINE RANDOM SODIUM, URINE RANDOM [...] bolus. Evaluated in the ED by the music assistant. ASSESSMENT AND PLAN Final diagnoses: Hyponatremia Pericardial effusion DISPOSITION: Admitted Discussed case with cardiology resident/fellow (). Not evaluated by admitting attending in ED. Admitted to telemetry for further evaluation and definitive management. Condition on admission: Serious.Pain level at time of admission: 0 (). PCP: Katia Mccallum [facility] Number of Diagnoses or Management Options [...] Care - Sigrid Gordon RN - 05/25/2017 0577 EDT Problem: Daily Care Plan Goals Goal: [...] Care - Cici Tapia RN - 05/24/2017 5454 EDT Problem: Daily Care Plan Goals Goal: [...] SOB and pleuritic chest pain. Transferred from [facility]. Dx of peridcardial effusion, HTN, [...] on chronic diastolic congestive heart failure (CMS-HCC) ([facility]) Acute pericarditis, unspecified type Ordered: 05/27/2017 documented [...] 8:40 EDT) 06/02/2017 8:40 EDT Scan 2 Reefer Truck Driver PROCEDURE/MINOR VELMA GICAL ORDERABLES * ECG REPORT - SCANNED (06/01/2017 12:46 EDT) 06/01/2017 12:4 6 EDT Scan 2 Reefer Truck Driver PROCEDURE/MINOR VELMA GICAL ORDERABLES * ECG REPORT - SCANNED (05/30/2017 11:59 EDT) 05/30/2017 11:5 9 EDT Scan 2 Reefer Truck Driver PROCEDURE/MINOR VELMA GICAL ORDERABLES * ECG REPORT - SCANNED (05/30/2017 11:17 EDT) 05/30/2017 11:1 7 EDT Scan 2 Reefer Truck Driver PROCEDURE/MINOR VELMA GICAL ORDERABLES * ECG REPORT - SCANNED (05/30/2017 11:17 EDT) 05/30/2017 11:1 7 EDT Scan 2 Reefer Truck Driver PROCEDURE/MINOR VELMA GICAL ORDERABLES * ECG REPORT - SCANNED (05/28/2017 10:02 EDT) 05/28/2017 10:0 2 EDT Scan 2 Reefer Truck Driver PROCEDURE/MINOR VELMA GICAL ORDERABLES * ECG REPORT - SCANNED (05/27/2017 13:22 EDT) 05/27/2017 13:2 2 EDT Scan 2 Reefer Truck Driver PROCEDURE/MINOR VELMA GICAL ORDERABLES * EKG 12-LEAD (05/27/2017 7:37 EDT) 05/27/2017 7:37 EDT Narrative [facility] EKG - 06/01/2017 12:41 EDT ? [facility] ? Test Date: ?2017-05-27 Pat Name: ? DAVID MERA ?Department: ?? JAME Chao ? Room: ? MW531 Gender: ? 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 [id number] : ?1950 ? Requested By: PRADIP MONET Order Number: [id number] ? Martha OAKES: ?? PIERRE RUBIO MD ? Measurements Intervals ?[place] ? Rate: ? 69 ? P: ?23 [...] Note Pierre Rubio MD - 06/01/2017 [facility] Test Date: 2017-05-27 Pat Name: DAVID HULLEY Department: [place] [address] Room: [facility] Gender: M Design Printing Machine Set Up Operator: [id number] : 1950 Requested By: PRADIP MONET Order Number: [id number] Reading MD: PIERRE RUBIO MD Measurements Intervals [place] Rate: 69 P: 23 [place]: 175 QRS: [...] CARDIAC ECG ORDERABL ES Performing Organization Address [facility] de Phone Number [facility] EKG * (ABNORMAL) ELECTROLYTES (05/27/2017 5:57 EDT) Sodium 129(L) 136 - 145 mEq/L 05/27/2017 6:41 EDT [facility] Potassium 3.9 3.5 - 5.0 mEq/L 05/27/2017 6:41 EDT [facility] Chloride 87(L) 96 - 110 mEq/L 05/27/2017 6:41 EDT [facility] CO2 33(H) 22 - 32 mEq/L 05/27/2017 6:41 EDT [facility] Blood specimen (specimen) BLOOD SPECIMEN / Unknown 05/27/2017 5:57 EDT 05/27/2017 6:14 EDT Jayne Pozo MD CHEMISTRY & BLOOD GA S ORDERABLES Performing Organization Address [facility] de Phone Number [facility] [address] [place] [address] * BUN (05/27/2017 5:57 EDT) BUN 13 10 - 26 mg/dl 05/27/2017 6:41 EDT [facility] Blood specimen (specimen) BLOOD SPECIMEN / Unknown 05/27/2017 5:57 EDT 05/27/2017 6:14 EDT Jayne Pozo MD CHEMISTRY & BLOOD GA S ORDERABLES Performing Organization Address [facility] de Phone Number [facility] [address] [place] [address] * MAGNESIUM (05/27/2017 5:57 EDT) Magnesium 1.9 1.7 - 2.8 mg/dl 05/27/2017 6:41 EDT [facility] Blood specimen (specimen) BLOOD SPECIMEN / Unknown 05/27/2017 5:57 EDT 05/27/2017 6:14 EDT Jayne Pozo MD CHEMISTRY & BLOOD GA S ORDERABLES Performing Organization Address [facility] Co de Phone Number [facility] [address] [place] [address] * (ABNORMAL) CREATININE (05/27/2017 5:57 EDT) Creatinine 0.63(L) 0.66 - 1.25 mg/dl 05/27/2017 6:41 EDT [facility] GFR, Calculated 103 >60 ml/min/1.7 3m2 05/27/2017 6:41 EDT [facility] Comment: eGFR calculated using CKD-EPI equation for non Americans. Multiply eGFR by 1.16 for Americans. Blood specimen (specimen) BLOOD SPECIMEN / Unknown 05/27/2017 5:57 EDT 05/27/2017 6:14 EDT Jayne Pozo MD CHEMISTRY & BLOOD GA S ORDERABLES Performing Organization Address [facility] Co de Phone Number [facility] [address] [place] [address] * (ABNORMAL) HEMAGRAM (05/27/2017 5:57 EDT) WBC 6.74 4.0 - 10.4 K/cmm 05/27/2017 6:28 [facility] RBC 3.43(L) 4.36 - 5.78 M/cmm 05/27/2017 6:28 [facility] Hemoglobin 11.3(L) 13.8 - 17.3 gm/dl 05/27/2017 6:28 [facility] HCT 32.2(L) 39.5 - 50.2 % 05/27/2017 6:28 [facility] MCV 94 81 - 95 fl 05/27/2017 6:28 [facility] MCH 32.9 27.6 - 33.0 pg 05/27/2017 6:28 [facility] MCHC 35.1 32.8 - 36.4 gm/dl 05/27/2017 6:28 [facility] RDW-CV 11.3 <14.2 % 05/27/2017 6:28 EDT [facility] RDW-SD 38.4 <46.0 fl 05/27/2017 6:28 EDT [facility] PLT 308 141 - 377 K/cmm 05/27/2017 6:28 EDT [facility] MPV 10.4 9.5 - 12.7 fl 05/27/2017 6:28 EDT [facility] Blood specimen (specimen) BLOOD SPECIMEN / Unknown 05/27/2017 5:57 EDT 05/27/2017 6:14 EDT Jayne Pozo MD HEMATOLOGY & PF4 ORD ERABLES Performing Organization Address [facility] Co de Phone Number [facility] [address] [place] [address] * (ABNORMAL) NT PRO BNP (05/26/2017 17:55 EDT) NT Pro BNP 2,710(H) <300 pg/ml 05/26/2017 18:55 EDT [facility] Comment: Slight hemolysis Results may [...] BLO OD GAS ORDERABLES Performing Organization Address [facility] Co de Phone Number [facility] [address] [place] [address] * (ABNORMAL) ELECTROLYTES (05/26/2017 17:55 EDT) Sodium 129(L) 136 - 145 mEq/L 05/26/2017 18:44 EDT [facility] Comment:Slight hemolysis Potassium 4.0 3.5 - 5.0 mEq/L 05/26/2017 18:44 EDT [facility] Comment: Slight hemolysis Hemolysis may elevate potassium result. Chloride 84(L) 96 - 110 mEq/L 05/26/2017 18:44 EDT [facility] Comment:Slight hemolysis CO2 35(H) 22 - 32 mEq/L 05/26/2017 18:44 EDT [facility] Comment:Slight hemolysis Blood specimen (specimen) BLOOD SPECIMEN / Unknown 05/26/2017 17:55 EDT 05/26/2017 18:18 EDT Jayne Pozo MD CHEMISTRY & BLOOD GA S ORDERABLES Performing Organization Address [facility] Co de Phone Number [facility] [address] [place] [address] * INPATIENT ADD-ON (05/26/2017 15:20 EDT) Tests to be added BNP 05/26/2017 15:19 EDT [facility] Number for problems [id number] 05/26/2017 15:32 EDT [facility] Accession number CALLED M5 WITH INABILITY TO PERFORM ADD ON DUE TO NO SUITABLE SAMPLE [id number] 05/26/2017 15:32 EDT [facility] TOPOGRAPHY UNKNOWN / Unknown 05/26/2017 15:20 EDT 05/26/2017 15:31 EDT Vini Mathis MD HEMATOLOGY & PF4 OR DERABLES Performing Organization Address [facility] Co de Phone Number [facility] [address] [place] [address] * LEGIONELLA ANTIGEN DETECTION, URINE (05/26/2017 14:04 EDT) Result No Legionella pneumophila serogroup 1 antigen detected. 05/26/2017 15:30 EDT [facility] Specimen of unknown material (specimen) URINE / Unknown 05/26/2017 14:04 EDT 05/26/2017 14:42 EDT Comment:Clean catch specimen Сергей Damico MD MICROBIOLOGY - GENER AL ORDERABLES Performing Organization Address City/[facility]/ZIP Co de Phone Number [facility] [address] [place] [address] * STREPTOCOCCUS PNEUMONIAE ANTIGEN, URINE (05/26/2017 14:04 EDT) Result No Strep pneumoniae antigen detected. 05/26/2017 15:29 EDT [facility] Specimen of unknown material (specimen) URINE / Unknown 05/26/2017 14:04 EDT 05/26/2017 14:42 EDT Comment:Clean catch specimen Сергей Damico MD MICROBIOLOGY - GENER AL ORDERABLES Performing Organization Address [facility] Co de Phone Number [facility] [address] [place] [address] * ECG REPORT - SCANNED (05/26/2017 12:53 EDT) 05/26/2017 12:5 3 EDT Scan 2 Reefer Truck Driver PROCEDURE/MINOR VELMA GICAL ORDERABLES * CHEST PA [...] agree with the findings. Сергей Damico MD [facility] DIAGNOSTIC IMAGI NG ORDERABLES * BACTERIAL CULTURE/SMEAR, RESPIRATORY (05/26/2017 12:14 EDT) Gram Smear Result Mod Polys 05/26/2017 14:30 EDT [facility] Gram Smear Result Mod Squamous epithelial cells 05/26/2017 14:30 EDT [facility] Gram Smear Result Mod Mixed gram positive and gram negative organisms 05/26/2017 14:30 EDT [facility] Gram Smear Result Smear suggests contamination with saliva. ??Please submit additional specimen if clinically indicated. 05/26/2017 14:30 EDT [facility] Result See gram smear results. 05/26/2017 14:30 EDT [facility] Result Credit Issued 05/26/2017 14:30 EDT [facility] Specimen of unknown material (specimen) SPUTUM / Unknown 05/26/2017 12:14 EDT 05/26/2017 13:50 EDT Сергей Damico MD MICROBIOLOGY - GENER AL ORDERABLES Performing Organization Address [facility] Co de Phone Number [facility] [address] [place] [address] * RESPIRATORY VIRUS DETECTION (05/26/2017 11:57 EDT) Result No RSV, Influenza A, or Influenza B detected by PCR 05/28/2017 14:18 EDT [facility] Result No Metapneumovirus detected by PCR. 05/28/2017 14:18 EDT [facility] Result No Parainfluenza Virus Type 1,2 or 3 detected by PCR. This assay may have decrease sensitivity for Parainfluenza Virus Type 3. 05/28/2017 14:18 EDT [facility] NASOPHARYNGEAL STRUCTURE / Unknown 05/26/2017 11:57 EDT 05/26/2017 12:19 EDT Сергей Damico MD MICROBIOLOGY - GENER AL ORDERABLES Performing Organization Address City/[facility]/ZIP Co de Phone Number [facility] [address] [place] [address] * ECHOCARDIOGRAM LIMITED (05/26/2017 11:16 EDT) Anatomical Region Laterality Modality Other 05/26/2017 11:1 6 EDT Narrative 05/26/2017 11:25 EDT *Interpreting Group:* *[facility]* [address] [place] [address] Date of study: 05/26/2017 Transthoracic Echocardiography M-mode, [...] Rosenberg MD ORDERING ?Tony Rosenberg MD PERFORMING ??[facility], REFERRING ?? Katia Mccallum *PROCEDURE DATA* Procedure information: ??The patient was identified by two identifiers. This study was interpreted by [facility]. Pertinent images and [...] Andrade MD - 05/26/2017 *Interpreting Group:* *[facility]* [address] [place] [address] Date of study: 05/26/2017 Transthoracic Echocardiography M-mode, [...] identifiers. This study was interpreted by [facility] Group Cardiology. Pertinent images and [...] 12-LEAD (05/26/2017 7:29 EDT) 05/26/2017 7:29 EDT [facility] EKG - 05/27/2017 13:18 EDT ? [facility] ? Test Date: ?2017-05-26 Pat Name: ? DAVID MERA ?Department: ?? [facility] 5 ? Room: ? MW531 Gender: ? 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 [id number] : ?1950 ? Requested By: PRADIP MONET Order Number: [id number] ? Reading MD: ?? PETER ROLF MD ? Measurements Intervals ?[place] ? Rate: ? 73 ? P: ? [...] Laly Dela Cruz MD - 05/27/2017 [facility] Test Date: 2017-05-26 Pat Name: DAVID MERA Department: [place] [address] Room: [facility] Gender: M [employer] Printing Machine Set Up Operator: [id number] : 1950 Requested By: PRADIP MONET Order Number: [id number] Reading MD: LALY DELA CRUZ MD Measurements Intervals [place] Rate: 73 P: [place]: 0 QRS: -45 [...] Antonia Zimmerman MD CARDIAC ECG ORDERABL ES [facility] EKG * (ABNORMAL) ELECTROLYTES (05/26/2017 5:57 EDT) Sodium 128(L) 136 - 145 mEq/L 05/26/2017 6:54 EDT [facility] Potassium 3.7 3.5 - 5.0 mEq/L 05/26/2017 6:54 EDT [facility] Chloride 85(L) 96 - 110 mEq/L 05/26/2017 6:54 EDT [facility] CO2 35(H) 22 - 32 mEq/L 05/26/2017 6:54 EDT [facility] Blood specimen (specimen) BLOOD SPECIMEN / Unknown 05/26/2017 5:57 EDT 05/26/2017 6:26 EDT Jayne Pozo MD CHEMISTRY & BLOOD GA S ORDERABLES Performing Organization Address City/[facility]/ZIP Co de Phone Number [facility] [address] [place] [address] * (ABNORMAL) BUN (05/26/2017 5:57 EDT) BUN 9(L) 10 - 26 mg/dl 05/26/2017 6:54 EDT [facility] Blood specimen (specimen) BLOOD SPECIMEN / Unknown 05/26/2017 5:57 EDT 05/26/2017 6:26 EDT Jayne Pozo MD CHEMISTRY & BLOOD GA S ORDERABLES Performing Organization Address City/[facility]/ZIP Co de Phone Number [facility] [address] [place] [address] * MAGNESIUM (05/26/2017 5:57 EDT) Magnesium 1.8 1.7 - 2.8 mg/dl 05/26/2017 6:54 EDT [facility] Blood specimen (specimen) BLOOD SPECIMEN / Unknown 05/26/2017 5:57 EDT 05/26/2017 6:26 EDT Jayne Pozo MD CHEMISTRY & BLOOD GA S ORDERABLES Performing Organization Address City/[facility] Co de Phone Number [facility] [address] [place] [address] * (ABNORMAL) CREATININE (05/26/2017 5:57 EDT) Creatinine 0.53(L) 0.66 - 1.25 mg/dl 05/26/2017 6:54 EDT [facility] GFR, Calculated 110 >60 ml/min/1.7 3m2 05/26/2017 6:54 [facility] Comment: eGFR calculated using CKD-EPI equation for non Americans. Multiply eGFR by 1.16 for Americans. Blood specimen (specimen) BLOOD SPECIMEN / Unknown 05/26/2017 5:57 EDT 05/26/2017 6:26 EDT Jayne Pozo MD CHEMISTRY & BLOOD GA S ORDERABLES [facility] [address] [place] [address] * (ABNORMAL) HEMAGRAM (05/26/2017 5:57 EDT) WBC 7.06 4.0 - 10.4 K/cmm 05/26/2017 6:33 [facility] RBC 3.20(L) 4.36 - 5.78 M/cmm 05/26/2017 6:33 [facility] Hemoglobin 10.7(L) 13.8 - 17.3 gm/dl 05/26/2017 6:33 [facility] HCT 30.0(L) 39.5 - 50.2 % 05/26/2017 6:33 [facility] MCV 94 81 - 95 fl 05/26/2017 6:33 [facility] MCH 33.4(H) 27.6 - 33.0 pg 05/26/2017 6:33 [facility] MCHC 35.7 32.8 - 36.4 gm/dl 05/26/2017 6:33 [facility] RDW-CV 11.3 <14.2 % 05/26/2017 6:33 [facility] RDW-SD 38.4 <46.0 fl 05/26/2017 6:33 [facility] PLT 306 141 - 377 K/cmm 05/26/2017 6:33 [facility] MPV 10.3 9.5 - 12.7 fl 05/26/2017 6:33 [facility] Blood specimen (specimen) BLOOD SPECIMEN / Unknown 05/26/2017 5:57 EDT 05/26/2017 6:26 EDT Jayne Pozo MD HEMATOLOGY & PF4 ORD ERABLES Performing Organization Address [facility] Co de Phone Number [facility] [address] [place] [address] * (ABNORMAL) ELECTROLYTES (05/25/2017 17:58 EDT) Sodium 130(L) 136 - 145 mEq/L 05/25/2017 18:29 EDT [facility] Potassium 3.6 3.5 - 5.0 mEq/L 05/25/2017 18:29 EDT [facility] Chloride 83(L) 96 - 110 mEq/L 05/25/2017 18:29 EDT [facility] CO2 36(H) 22 - 32 mEq/L 05/25/2017 18:29 EDT [facility] Blood specimen (specimen) BLOOD SPECIMEN / Unknown 05/25/2017 17:58 EDT 05/25/2017 18:03 EDT Jayne Pozo MD CHEMISTRY & BLOOD GA S ORDERABLES Performing Organization Address [facility] Co de Phone Number [facility] [address] [place] [address] * OSMOLALITY, URINE (05/25/2017 14:29 EDT) Osmolality, Ur 284 150 - 1,150 mos/kg 05/25/2017 15:18 EDT [facility] Urine specimen (specimen) URINE / Unknown 05/25/2017 14:29 EDT 05/25/2017 14:37 EDT Lcuiano Christian MD URINALYSIS ORDERABLE S Performing Organization Address [facility] Co de Phone Number [facility] [address] [place] [address] * URINE ELECTROLYTES (05/25/2017 14:29 EDT) Chloride, Ur 41 mEq/L 05/25/2017 15:10 EDT [facility] Comment: Reference Range: No reference range available Potassium, Urine 31.1 mEq/L 05/25/2017 15:10 EDT [facility] Sodium, Ur 81.0 mEq/L 05/25/2017 15:10 EDT [facility] Urine specimen (specimen) URINE / Unknown 05/25/2017 14:29 EDT 05/25/2017 14:37 EDT Luciano Christian MD URINALYSIS ORDERABLE S [facility] [address] [place] [address] * EKG 12-LEAD (05/25/2017 7:40 EDT) 05/25/2017 7:40 EDT Narrative [facility] EKG - 06/02/2017 8:35 EDT ? [facility] ? Test Date: ?2017-05-25 Pat Name: ? DAVID MERA ?Department: ?? [facility] [address] ? Room: ? MW531 Gender: ? 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 [id number] : ?1950 ? Requested By: PRADIP MONET Order Number: [id number] ? Reading MD: ?? SENG PERSON SA, MD ? Measurements Intervals ?[place] ? Rate: ? 76 ? 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 Machine Set Up Operator: [id number] : 1950 Requested By: PRADIP MONET Order Number: [id number] Reading MD: SENG ROBLEDO Measurements Intervals [place] Rate: 76 P: 35 [place]: 218 QRS: [...] CARDIAC ECG ORDERABL ES Performing Organization Address City/[facility]/ZIP Co de Phone Number [facility] EKG * (ABNORMAL) ELECTROLYTES (05/25/2017 5:59 EDT) Sodium 127(L) 136 - 145 mEq/L 05/25/2017 7:02 EDT [facility] Potassium 3.7 3.5 - 5.0 mEq/L 05/25/2017 7:02 EDT [facility] Chloride 85(L) 96 - 110 mEq/L 05/25/2017 7:02 EDT [facility] CO2 36(H) 22 - 32 mEq/L 05/25/2017 7:02 EDT [facility] Blood specimen (specimen) BLOOD SPECIMEN / Unknown 05/25/2017 5:59 EDT 05/25/2017 6:23 EDT Jayne Pozo MD CHEMISTRY & BLOOD GA S ORDERABLES [facility] [address] [place] [address] * (ABNORMAL) BUN (05/25/2017 5:59 EDT) BUN 9(L) 10 - 26 mg/dl 05/25/2017 7:02 EDT [facility] Blood specimen (specimen) BLOOD SPECIMEN / Unknown 05/25/2017 5:59 EDT 05/25/2017 6:23 EDT Jayne Pozo MD CHEMISTRY & BLOOD GA S ORDERABLES [facility] [address] [place] [address] * MAGNESIUM (05/25/2017 5:59 EDT) Magnesium 1.7 1.7 - 2.8 mg/dl 05/25/2017 7:02 EDT [facility] Blood specimen (specimen) BLOOD SPECIMEN / Unknown 05/25/2017 5:59 EDT 05/25/2017 6:23 EDT Jayne Pozo MD CHEMISTRY & BLOOD GA S ORDERABLES Performing Organization Address [facility] Co de Phone Number [facility] [address] [place] [address] * (ABNORMAL) CREATININE (05/25/2017 5:59 EDT) Creatinine 0.54(L) 0.66 - 1.25 mg/dl 05/25/2017 7:02 EDT [facility] GFR, Calculated 109 >60 ml/min/1.7 3m2 05/25/2017 7:02 EDT [facility] Comment: eGFR calculated using CKD-EPI equation for non Americans. Multiply eGFR by 1.16 for Americans. Blood specimen (specimen) BLOOD SPECIMEN / Unknown 05/25/2017 5:59 EDT 05/25/2017 6:23 EDT Jayne Pozo MD CHEMISTRY & BLOOD GA S ORDERABLES Performing Organization Address [facility] Co de Phone Number [facility] [address] [place] [address] * (ABNORMAL) HEMAGRAM (05/25/2017 5:59 EDT) WBC 6.99 4.0 - 10.4 K/cmm 05/25/2017 6:36 [facility] RBC 3.16(L) 4.36 - 5.78 M/cmm 05/25/2017 6:36 [facility] Hemoglobin 10.5(L) 13.8 - 17.3 gm/dl 05/25/2017 6:36 [facility] HCT 29.5(L) 39.5 - 50.2 % 05/25/2017 6:36 [facility] MCV 93 81 - 95 fl 05/25/2017 6:36 [facility] MCH 33.2(H) 27.6 - 33.0 pg 05/25/2017 6:36 [facility] MCHC 35.6 32.8 - 36.4 gm/dl 05/25/2017 6:36 [facility] RDW-CV 11.2 <14.2 % 05/25/2017 6:36 [facility] RDW-SD 38.8 <46.0 fl 05/25/2017 6:36 [facility] PLT 290 141 - 377 K/cmm 05/25/2017 6:36 [facility] MPV 10.7 9.5 - 12.7 fl 05/25/2017 6:36 [facility] Blood specimen (specimen) BLOOD SPECIMEN / Unknown 05/25/2017 5:59 EDT 05/25/2017 6:23 EDT Jayne Pozo MD HEMATOLOGY & PF4 ORD ERABLES [facility] [address] [place] [address] * (ABNORMAL) ELECTROLYTES (05/24/2017 18:02 EDT) Sodium 127(L) 136 - 145 mEq/L 05/24/2017 18:40 [facility] Potassium 3.7 3.5 - 5.0 mEq/L 05/24/2017 18:40 [facility] Chloride 80(L) 96 - 110 mEq/L 05/24/2017 18:40 EDT [facility] CO2 37(H) 22 - 32 mEq/L 05/24/2017 18:48 EDT [facility] Blood specimen (specimen) BLOOD SPECIMEN / Unknown 05/24/2017 18:02 EDT 05/24/2017 18:16 EDT Jayne Pozo MD CHEMISTRY & BLOOD GA S ORDERABLES [facility] [address] [place] [address] * EKG 12-LEAD (05/24/2017 7:22 EDT) 05/24/2017 7:22 EDT Narrative [facility] EKG - 05/28/2017 9:56 EDT ? [facility] ? Test Date: ?2017-05-24 Pat Name: ? DAVID MERA ?Department: ?? [facility] 5 ? Room: ? MW531 Gender: ? 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 [id number] : ?1950 ? Requested By: PRADIP MONET Order Number: [id number] ? Martha OAKES: ?? ERVIN WILHELM MD ? Measurements Intervals ?[place] ? Rate: ? 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 Electronically Signed On 05-28-17 09:56:53 EDT by ERVIN MARCH. Maria Antonia Zimmerman MD CARDIAC ECG ORDERABL ES Performing Organization Address [facility] Co de Phone Number [facility] EKG * (ABNORMAL) ELECTROLYTES (05/24/2017 5:51 EDT) Sodium 128(L) 136 - 145 mEq/L 05/24/2017 6:56 EDT [facility] Potassium 3.9 3.5 - 5.0 mEq/L 05/24/2017 6:56 EDT [facility] Chloride 83(L) 96 - 110 mEq/L 05/24/2017 6:56 EDT [facility] CO2 36(H) 22 - 32 mEq/L 05/24/2017 7:10 EDT [facility] Blood specimen (specimen) BLOOD SPECIMEN / Unknown 05/24/2017 5:51 EDT 05/24/2017 6:19 EDT Jayne Pozo MD CHEMISTRY & BLOOD GA S ORDERABLES Performing Organization Address [facility] de Phone Number [facility] [address] [place] [address] * (ABNORMAL) BUN (05/24/2017 5:51 EDT) BUN 9(L) 10 - 26 mg/dl 05/24/2017 6:56 EDT [facility] Blood specimen (specimen) BLOOD SPECIMEN / Unknown 05/24/2017 5:51 EDT 05/24/2017 6:19 EDT Jayne Pozo MD CHEMISTRY & BLOOD GA S ORDERABLES Performing Organization Address [facility] de Phone Number [facility] [address] [place] [address] * MAGNESIUM (05/24/2017 5:51 EDT) Magnesium 1.7 1.7 - 2.8 mg/dl 05/24/2017 6:56 EDT [facility] Blood specimen (specimen) BLOOD SPECIMEN / Unknown 05/24/2017 5:51 EDT 05/24/2017 6:19 EDT Jayne Pozo MD CHEMISTRY & BLOOD GA S ORDERABLES [facility] [address] [place] [address] * (ABNORMAL) CREATININE (05/24/2017 5:51 EDT) Creatinine 0.59(L) 0.66 - 1.25 mg/dl 05/24/2017 6:56 EDT [facility] GFR, Calculated 105 >60 ml/min/1.7 3m2 05/24/2017 6:56 EDT [facility] Comment: eGFR calculated using CKD-EPI equation for non Americans. Multiply eGFR by 1.16 for Americans. Blood specimen (specimen) BLOOD SPECIMEN / Unknown 05/24/2017 5:51 EDT 05/24/2017 6:19 EDT Jayne Pozo MD CHEMISTRY & BLOOD GA S ORDERABLES Performing Organization Address City/[facility]/ZIP Co de Phone Number [facility] [address] [place] [address] * (ABNORMAL) HEMAGRAM (05/24/2017 5:51 EDT) WBC 7.61 4.0 - 10.4 K/cmm 05/24/2017 6:30 EDT [facility] RBC 3.35(L) 4.36 - 5.78 M/cmm 05/24/2017 6:30 EDT [facility] Hemoglobin 11.0(L) 13.8 - 17.3 gm/dl 05/24/2017 6:30 EDT [facility] HCT 31.4(L) 39.5 - 50.2 % 05/24/2017 6:30 EDT [facility] MCV 94 81 - 95 fl 05/24/2017 6:30 EDT [facility] MCH 32.8 27.6 - 33.0 pg 05/24/2017 6:30 EDT [facility] MCHC 35.0 32.8 - 36.4 gm/dl 05/24/2017 6:30 EDT [facility] RDW-CV 11.4 <14.2 % 05/24/2017 6:30 T [facility] RDW-SD 39.0 <46.0 fl 05/24/2017 6:30 EDT [facility] PLT 273 141 - 377 K/cmm 05/24/2017 6:30 T [facility] MPV 10.9 9.5 - 12.7 fl 05/24/2017 6:30 EDT [facility] Blood specimen (specimen) BLOOD SPECIMEN / Unknown 05/24/2017 5:51 EDT 05/24/2017 6:19 EDT Jayne Pozo MD HEMATOLOGY & PF4 ORD ERABLES [facility] [address] [place] [address] * (ABNORMAL) ELECTROLYTES (05/23/2017 21:40 EDT) Sodium 128(L) 136 - 145 mEq/L 05/23/2017 22:23 EDT [facility] Potassium 3.6 3.5 - 5.0 mEq/L 05/23/2017 22:23 EDT [facility] Chloride 81(L) 96 - 110 mEq/L 05/23/2017 22:23 EDT [facility] CO2 38(H) 22 - 32 mEq/L 05/23/2017 22:56 EDT [facility] Blood specimen (specimen) BLOOD SPECIMEN / Unknown 05/23/2017 21:40 EDT 05/23/2017 21:45 EDT Jayne Pozo MD CHEMISTRY & BLOOD GA S ORDERABLES Performing Organization Address City/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 GICAL ORDERABLES * (ABNORMAL) ELECTROLYTES (05/23/2017 12:16 EDT) Sodium 126(L) 136 - 145 mEq/L 05/23/2017 12:55 EDT [facility] Potassium 3.7 3.5 - 5.0 mEq/L 05/23/2017 12:55 EDT [facility] Chloride 81(L) 96 - 110 mEq/L 05/23/2017 12:55 EDT [facility] CO2 36(H) 22 - 32 mEq/L 05/23/2017 12:55 EDT [facility] Blood specimen (specimen) BLOOD SPECIMEN / Unknown 05/23/2017 12:16 EDT 05/23/2017 12:26 EDT Jayne Pozo MD CHEMISTRY & BLOOD GA S ORDERABLES Performing Organization Address [facility] Co de Phone Number [facility] [address] [place] [address] * ECG REPORT - SCANNED (05/23/2017 11:51 EDT) 05/23/2017 11:5 1 EDT Scan 2 [employer] PROCEDURE/MINOR VELMA GICAL ORDERABLES * ECHOCARDIOGRAM LIMITED (05/23/2017 10:59 EDT) Anatomical Region Laterality Modality Other 05/23/2017 10:5 9 EDT Narrative 05/23/2017 11:19 EDT *Interpreting Group:* *[facility]* [address] [place] [address] Date of study: 05/23/2017 Transthoracic Echocardiography M-mode, [...] ?Akash Reyes MD ATTENDING ?Tony Rosenberg MD PROPERTY UNDERWRITER ??Hali Del Real JUSTINO PERFORMING ?? Uvc, ORDERING ? Jayne Landry REFERRING ?Xena Katiacarrington Rodas *PROCEDURE DATA* Procedure information: ??This study was interpreted by [facility]. Pertinent images and digital data are archived for permanent storage and are available for subsequent review. Study status: ??Routine. Transthoracic echocardiography. ??M-mode, limited 2D, limited spectral Doppler, and color Doppler. A Transthoracic Echocardiogram was performed. Scanning was performed from the parasternal, apical, and subcostal acoustic windows. Images were obtained using an [employer] 10 cardiac ultrasound machine. Image quality was [...] Andrade MD - 05/23/2017 *Interpreting Group:* *[facility]* [address] [place] [address] Date of study: 05/23/2017 Transthoracic Echocardiography M-mode, [...] Akash Reyes MD ATTENDING Tony Rosenberg MD PROPERTY UNDERWRITER Hali Del Real, [facility] PERFORMING [facility], Ip ORDERING Jayne Landry Katelyn Doran *PROCEDURE DATA* Procedure information: This study was interpreted by [facility]. Pertinent images and [...] EDT) 05/23/2017 10:4 2 EDT Scan 2 [employer] PROCEDURE/MINOR VELMA GICAL ORDERABLES * FLUID DIFFERENTIAL (05/23/2017 7:47 EDT) Neutrophils, Fluid 30 % 05/23/2017 11:34 T [facility] Lymphocytes, Fluid 64 % 05/23/2017 11:34 EDT [facility] [place], Fluid 5 % 05/23/2017 11:34 [facility] Eosinophil, Fluid 1 % 05/23/2017 11:34 [facility] PERICARDIAL FLUID AND CAVITY, CS / Unknown 05/23/2017 7:47 EDT 05/23/2017 8:18 EDT Сергей Damico MD GEN LAB UNIT COLLECT ORDERABLES Performing Organization Address City/[facility] Co de Phone Number [facility] [address] [place] [address] * FUNGUS CULTURE/SMEAR, OTHER (05/23/2017 7:47 EDT) Fungal Smear No fungi seen 05/23/2017 14:20 EDT [facility] Result No fungi isolated 05/30/2017 7:35 EDT [facility] FOSMIC PERICARDIAL FLUID AND CAVITY, CS / Unknown 05/23/2017 7:47 EDT 05/23/2017 9:17 EDT Comment:Markedly bloody Сергей Damico MD MICROBIOLOGY - GENER AL ORDERABLES Performing Organization Address [facility] Co de Phone Number [facility] [address] [place] [address] * ANAEROBE CULTURE/SMEAR(INC. AEROBES), FLUID (05/23/2017 7:47 EDT) Gram Smear Result Few Polys 05/23/2017 9:37 EDT [facility] Gram Smear Result No bacteria seen 05/23/2017 9:37 EDT [facility] Result No growth 05/25/2017 11:45 EDT [facility] FOSMIC PERICARDIAL FLUID AND CAVITY, CS / Unknown 05/23/2017 7:47 EDT 05/23/2017 9:16 EDT Comment:Markedly bloody Сергей Damico MD MICROBIOLOGY - GENER AL ORDERABLES Performing Organization Address [facility] Co de Phone Number [facility] [address] [place] [address] * HEMATOCRIT, BODY FLUID (05/23/2017 7:47 EDT) Hematocrit,Bod y Fld 6.5 % 05/23/2017 9:56 EDT [facility] Comment:PERICARDIAL FLUID [facility] PERICARDIAL FLUID AND CAVITY, CS / Unknown 05/23/2017 7:47 EDT 05/23/2017 8:18 EDT Сергей Damico MD GEN LAB UNIT COLLECT ORDERABLES Performing Organization Address City/[facility] Co de Phone Number [facility] [address] [place] [address] * FLUID CELL COUNT (05/23/2017 7:47 EDT) RBC, Fluid 661,000 /cmm 05/23/2017 9:41 EDT [facility] Nucleated Cells 1,773 /cmm 05/23/2017 9:41 EDT [facility] Fluid Comment Markedly bloody 05/23/2017 9:41 EDT [facility] PERICARDIAL FLUID AND CAVITY, CS / Unknown 05/23/2017 7:47 EDT 05/23/2017 8:18 EDT Сергей Damico MD GEN LAB UNIT COLLECT ORDERABLES Performing Organization Address [facility] Co de Phone Number [facility] [address] [place] [address] * TOTAL PROTEIN, FLUID (05/23/2017 7:47 EDT) Protein, Fluid 5.5 g/dl 05/23/2017 9:58 EDT [facility] Comment: Reference Range: Pleural fluid [...] the blood, serum, or plasma is recommended. [facility] PERICARDIAL FLUID AND CAVITY, CS / Unknown 05/23/2017 7:47 EDT 05/23/2017 8:18 EDT Сергей Damico MD GEN LAB UNIT COLLECT ORDERABLES Performing Organization Address City/[facility] Co de Phone Number [facility] [address] [place] [address] * LDH, FLUID (05/23/2017 7:47 EDT) LDH, Fluid 2,337 U/L 05/23/2017 10:05 EDT [facility] Comment: Pleural fluid specimen (specimen) [...] the blood, serum, or plasma is recommended. [facility] PERICARDIAL FLUID AND CAVITY, CS / Unknown 05/23/2017 7:47 EDT 05/23/2017 8:18 EDT Сергей Damico MD GEN LAB UNIT COLLECT ORDERABLES Performing Organization Address [facility] de Phone Number [facility] [address] [place] [address] * GLUCOSE, FLUID (05/23/2017 7:47 EDT) Glucose, Fluid 54 mg/dl 05/23/2017 9:58 EDT [facility] Comment: Reference Range: Pleural fluid [...] the blood, serum, or plasma is recommended. [facility] PERICARDIAL FLUID AND CAVITY, CS / Unknown 05/23/2017 7:47 EDT 05/23/2017 8:18 EDT Сергей Damico MD GEN LAB UNIT COLLECT ORDERABLES Performing Organization Address City/[facility] Co de Phone Number [facility] [address] [place] [address] * ALBUMIN, FLUID (05/23/2017 7:47 EDT) Albumin, Fluid 2.5 g/dl 05/23/2017 9:58 EDT [facility] Comment: Reference Range: Pleural fluid [...] the blood, serum, or plasma is recommended. [facility] PERICARDIAL FLUID AND CAVITY, CS / Unknown 05/23/2017 7:47 EDT 05/23/2017 8:18 EDT Сергей Damico MD GEN LAB UNIT COLLECT ORDERABLES Performing Organization Address City/[facility]/ZIP Co de Phone Number [facility] [address] [place] [address] * EKG 12-LEAD (05/23/2017 7:20 EDT) 05/23/2017 7:20 EDT Narrative [facility] EKG - 05/23/2017 11:45 EDT ? [facility] ? Test Date: ?2017-05-23 Pat Name: ? DAVID MERA ?Department: ?? [address] 5 ? Room: ? MW531 Gender: ? 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 [id number] : ?1950 ? Requested By: PRADIP MONET Order Number: [id number] ? Reading MD: ?? MARCO A FOX MD ? Measurements Intervals ?[place] ? Rate: ? 102 ?P: ? 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 Electronically Signed On 05-23-17 11:45:47 EDT by MARCO A NGUYEN. Maria Antonia Zimmerman MD CARDIAC ECG ORDERABL ES [facility] EKG * (ABNORMAL) ELECTROLYTES (05/23/2017 6:42 EDT) Sodium 124(LL) 136 - 145 mEq/L 05/23/2017 7:45 EDT [facility] Potassium 3.5 3.5 - 5.0 mEq/L 05/23/2017 7:45 EDT [facility] Chloride 84(L) 96 - 110 mEq/L 05/23/2017 7:45 EDT [facility] CO2 33(H) 22 - 32 mEq/L 05/23/2017 7:45 EDT [facility] Blood specimen (specimen) BLOOD SPECIMEN / Unknown 05/23/2017 6:42 EDT 05/23/2017 7:16 EDT Jayne Pozo MD CHEMISTRY & BLOOD GA S ORDERABLES Performing Organization Address [facility] Co de Phone Number [facility] [address] [place] [address] * BUN (05/23/2017 6:42 EDT) BUN 10 10 - 26 mg/dl 05/23/2017 7:45 EDT [facility] Blood specimen (specimen) BLOOD SPECIMEN / Unknown 05/23/2017 6:42 EDT 05/23/2017 7:16 EDT Jayne Pozo MD CHEMISTRY & BLOOD GA S ORDERABLES Performing Organization Address [facility] de Phone Number [facility] [address] [place] [address] * MAGNESIUM (05/23/2017 6:42 EDT) Magnesium 1.7 1.7 - 2.8 mg/dl 05/23/2017 7:45 EDT [facility] Blood specimen (specimen) BLOOD SPECIMEN / Unknown 05/23/2017 6:42 EDT 05/23/2017 7:16 EDT Jayne Pozo MD CHEMISTRY & BLOOD GA S ORDERABLES Performing Organization Address [facility] Co de Phone Number [facility] [address] [place] [address] * (ABNORMAL) CREATININE (05/23/2017 6:42 EDT) Creatinine 0.50(L) 0.66 - 1.25 mg/dl 05/23/2017 7:45 EDT [facility] GFR, Calculated 113 >60 ml/min/1.7 3m2 05/23/2017 7:45 EDT [facility] Comment: eGFR calculated using CKD-EPI equation for non Americans. Multiply eGFR by 1.16 for Americans. Blood specimen (specimen) BLOOD SPECIMEN / Unknown 05/23/2017 6:42 EDT 05/23/2017 7:16 EDT Jayne Pozo MD CHEMISTRY & BLOOD GA S ORDERABLES [facility] [address] [place] [address] * (ABNORMAL) HEMAGRAM (05/23/2017 6:42 EDT) WBC 8.96 4.0 - 10.4 K/cmm 05/23/2017 7:24 [facility] RBC 3.30(L) 4.36 - 5.78 M/cmm 05/23/2017 7:24 [facility] Hemoglobin 11.0(L) 13.8 - 17.3 gm/dl 05/23/2017 7:24 [facility] HCT 30.8(L) 39.5 - 50.2 % 05/23/2017 7:24 [facility] MCV 93 81 - 95 fl 05/23/2017 7:24 [facility] MCH 33.3(H) 27.6 - 33.0 pg 05/23/2017 7:24 [facility] MCHC 35.7 32.8 - 36.4 gm/dl 05/23/2017 7:24 [facility] RDW-CV 11.3 <14.2 % 05/23/2017 7:24 [facility] RDW-SD 38.5 <46.0 fl 05/23/2017 7:24 [facility] PLT 254 141 - 377 K/cmm 05/23/2017 7:24 [facility] MPV 11.2 9.5 - 12.7 fl 05/23/2017 7:24 [facility] Blood specimen (specimen) BLOOD SPECIMEN / Unknown 05/23/2017 6:42 EDT 05/23/2017 7:16 EDT Jayne Pozo MD HEMATOLOGY & PF4 ORD ERABLES [facility] [address] [place] [address] * CYTOPATHOLOGY (05/23/2017 0:00 EDT) Pathology Report: CYTOPATHOLOGY REPORT Reports generated via electronic interface contain original data; however they are lacking the format of the original report. Caution should be taken when reading/interpret ing unformatted reports. Name: ? DAVID MERA ? Accession #: ? [id number] : ? 1950 (Age: 66) ??M ?Collect [...] cellular enhancement technique. ? End of Report [facility] 05/23/2017 05/23/2017 9:4 0 EDT Сергей Damico MD PATHOLOGY ORDERABLES Performing Organization Address [facility] de Phone Number [facility] [address] [place] [address] * (ABNORMAL) ELECTROLYTES (05/22/2017 23:40 EDT) Sodium 125(L) 136 - 145 mEq/L 05/23/2017 0:39 EDT [facility] Potassium 3.3(L) 3.5 - 5.0 mEq/L 05/23/2017 0:39 EDT [facility] Chloride 84(L) 96 - 110 mEq/L 05/23/2017 0:39 EDT [facility] CO2 33(H) 22 - 32 mEq/L 05/23/2017 0:39 EDT [facility] Blood specimen (specimen) BLOOD SPECIMEN / Unknown 05/22/2017 23:40 EDT 05/22/2017 23:58 EDT Jayne Pozo MD CHEMISTRY & BLOOD GA S ORDERABLES Performing Organization Address [facility] de Phone Number [facility] [address] [place] [address] * (ABNORMAL) ELECTROLYTES (05/22/2017 18:36 EDT) Sodium 124(LL) 136 - 145 mEq/L 05/22/2017 19:37 EDT [facility] Comment:Slight hemolysis Potassium 3.9 3.5 - 5.0 mEq/L 05/22/2017 19:37 EDT [facility] Comment: Slight hemolysis Hemolysis may elevate potassium result. Chloride 81(L) 96 - 110 mEq/L 05/22/2017 19:37 EDT [facility] Comment:Slight hemolysis CO2 32 22 - 32 mEq/L 05/22/2017 19:37 EDT [facility] Comment:Slight hemolysis Blood specimen (specimen) BLOOD SPECIMEN / Unknown 05/22/2017 18:36 EDT 05/22/2017 19:04 EDT Jayne Pozo MD CHEMISTRY & BLOOD GA S ORDERABLES [facility] [address] [place] [address] * CHEST PA AND LATERAL (05/22/2017 14:43 [...] 136 - 145 mEq/L 05/22/2017 13:23 EDT [facility] Comment:Moderate hemolysis Potassium 5.3(H) 3.5 - 5.0 mEq/L 05/22/2017 13:23 EDT [facility] Comment: Moderate hemolysis Hemolysis may elevate potassium result. Chloride 85(L) 96 - 110 mEq/L 05/22/2017 13:23 EDT [facility] Comment:Moderate hemolysis CO2 27 22 - 32 mEq/L 05/22/2017 13:23 EDT [facility] Comment:Moderate hemolysis Blood specimen (specimen) BLOOD SPECIMEN / Unknown 05/22/2017 12:36 EDT 05/22/2017 12:51 EDT Jayne Pozo MD CHEMISTRY & BLOOD GA S ORDERABLES Performing Organization Address City/[facility] Co de Phone Number [facility] [address] [place] [address] * BACTERIAL CULTURE, BLOOD (05/22/2017 9:58 EDT) Result No growth 05/27/2017 6:35 EDT [facility] Blood specimen (specimen) BLOOD SPECIMEN / Unknown 05/22/2017 9:58 EDT 05/22/2017 10:47 EDT Comment:Left~Hand~AEROBIC BL OOD CULTURE BOTTLE~Volume of blood collected may not be adequate for detection of bacteremia/septicemia.~2ND SET Jayne Pozo MD MICROBIOLOGY - GENER AL ORDERABLES Performing Organization Address [facility] Co de Phone Number [facility] [address] [place] [address] * BACTERIAL CULTURE, BLOOD (05/22/2017 9:58 EDT) Result No growth 05/27/2017 6:35 EDT [facility] Blood specimen (specimen) BLOOD SPECIMEN / Unknown 05/22/2017 9:58 EDT 05/22/2017 10:47 EDT Comment:Left~Hand~Total volu me of blood collected:~20 ml Jayne Pozo MD MICROBIOLOGY - GENER AL ORDERABLES Performing Organization Address [facility] Co de Phone Number [facility] [address] [place] [address] * EKG 12-LEAD (05/22/2017 8:04 EDT) 05/22/2017 8:04 EDT Narrative [facility] EKG - 05/26/2017 12:50 EDT ? [facility] ? Test Date: ?2017-05-22 Pat Name: ? DAVID MERA ?Department: ?? J[address] 5 ? Room: ? MW531 Gender: ? 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 [id number] : ?1950 ? Requested By: PRADIP MONET Order Number: [id number] ? Reading MD: ?? GAGAN RAMOS MD ? Measurements Intervals ?[place] ? Rate: ? 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 Electronically Signed On 05-26-17 12:50:27 EDT by GAGAN LEDESMA. Maria Antonia Zimmerman MD CARDIAC ECG ORDERABL ES [facility] EKG * BUN (05/22/2017 4:09 EDT) BUN 11 10 - 26 mg/dl 05/22/2017 4:54 EDT [facility] Blood specimen (specimen) BLOOD SPECIMEN / Unknown 05/22/2017 4:09 EDT 05/22/2017 4:18 EDT Jayne Pozo MD CHEMISTRY & BLOOD GA S ORDERABLES Performing Organization Address City/[facility]/ZIP Co de Phone Number [facility] [address] [place] [address] * MAGNESIUM (05/22/2017 4:09 EDT) Magnesium 2.1 1.7 - 2.8 mg/dl 05/22/2017 4:54 EDT [facility] Blood specimen (specimen) BLOOD SPECIMEN / Unknown 05/22/2017 4:09 EDT 05/22/2017 4:18 EDT Jayne Pozo MD CHEMISTRY & BLOOD GA S ORDERABLES Performing Organization Address [facility] Co de Phone Number [facility] [address] [place] [address] * (ABNORMAL) CREATININE (05/22/2017 4:09 EDT) Creatinine 0.56(L) 0.66 - 1.25 mg/dl 05/22/2017 4:54 EDT [facility] GFR, Calculated 108 >60 ml/min/1.7 3m2 05/22/2017 4:54 EDT [facility] Comment: eGFR calculated using CKD-EPI equation for non Americans. Multiply eGFR by 1.16 for Americans. Blood specimen (specimen) BLOOD SPECIMEN / Unknown 05/22/2017 4:09 EDT 05/22/2017 4:18 EDT Jayne Pozo MD CHEMISTRY & BLOOD GA S ORDERABLES Performing Organization Address [facility]/ZIP Co de Phone Number [facility] [address] [place] [address] * (ABNORMAL) HEMAGRAM (05/22/2017 4:09 EDT) WBC 10.75(H) 4.0 - 10.4 K/cmm 05/22/2017 4:37 EDT [facility] RBC 3.70(L) 4.36 - 5.78 M/cmm 05/22/2017 4:37 T [facility] Hemoglobin 12.2(L) 13.8 - 17.3 gm/dl 05/22/2017 4:37 T [facility] HCT 34.1(L) 39.5 - 50.2 % 05/22/2017 4:37 [facility] MCV 92 81 - 95 fl 05/22/2017 4:37 [facility] MCH 33.0 27.6 - 33.0 pg 05/22/2017 4:37 [facility] MCHC 35.8 32.8 - 36.4 gm/dl 05/22/2017 4:37 [facility] RDW-CV 10.9 <14.2 % 05/22/2017 4:37 [facility] RDW-SD 37.2 <46.0 fl 05/22/2017 4:37 [facility] PLT 294 141 - 377 K/cmm 05/22/2017 4:37 [facility] MPV 10.7 9.5 - 12.7 fl 05/22/2017 4:37 [facility] Blood specimen (specimen) BLOOD SPECIMEN / Unknown 05/22/2017 4:09 EDT 05/22/2017 4:18 EDT Jayne Pozo MD HEMATOLOGY & PF4 ORD ERABLES [facility] [address] [place] [address] * (ABNORMAL) ELECTROLYTES (05/22/2017 4:09 EDT) Sodium 122(LL) 136 - 145 mEq/L 05/22/2017 4:54 T [facility] Potassium 4.0 3.5 - 5.0 mEq/L 05/22/2017 4:54 EDT [facility] Chloride 84(L) 96 - 110 mEq/L 05/22/2017 4:54 EDT [facility] CO2 29 22 - 32 mEq/L 05/22/2017 4:54 EDT [facility] Blood specimen (specimen) BLOOD SPECIMEN / Unknown 05/22/2017 4:09 EDT 05/22/2017 4:18 EDT Maria Antonia Zimmerman MD CHEMISTRY & BLOOD GA S ORDERABLES Performing Organization Address [facility] de Phone Number [facility] [address] [place] [address] * (ABNORMAL) ELECTROLYTES (05/22/2017 0:23 EDT) Sodium 120(LL) 136 - 145 mEq/L 05/22/2017 1:00 EDT [facility] Potassium 3.4(L) 3.5 - 5.0 mEq/L 05/22/2017 1:00 EDT [facility] Chloride 83(L) 96 - 110 mEq/L 05/22/2017 1:00 EDT [facility] CO2 31 22 - 32 mEq/L 05/22/2017 1:00 EDT [facility] Blood specimen (specimen) BLOOD SPECIMEN / Unknown 05/22/2017 0:23 EDT 05/22/2017 0:27 EDT Maria Antonia Zimmerman MD CHEMISTRY & BLOOD GA S ORDERABLES Performing Organization Address [facility] Co de Phone Number [facility] [address] [place] [address] * EKG 12-LEAD (05/21/2017 20:29 EDT) 05/21/2017 20:2 9 EDT Narrative [facility] EKG - 05/30/2017 11:55 EDT ? [facility] ? Test Date: ?2017-05-21 Pat Name: ? DAVID MERA ?Department: ?? [place] 5 ? Room: ? MW531 Gender: ? 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 [id number] : ?1950 ? Requested By: ROBLES Cabral Order Number: [id number] ? Reading MD: ?? ASHLEY CONSUELO MD ? Measurements Intervals ?[place] ? Rate: ? 109 ?P: ? 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 Electronically Signed On 05-30-17 11:55:09 EDT by ASHLEY RAI. Seng Rand MD PhD CARDIA C ECG ORDERABLES [facility] EKG * PORTABLE CHEST 1 VIEW (05/21/2017 [...] 136 - 145 mEq/L 05/21/2017 20:54 EDT [facility] Potassium 3.7 3.5 - 5.0 mEq/L 05/21/2017 20:54 EDT [facility] Chloride 79(L) 96 - 110 mEq/L 05/21/2017 20:54 EDT [facility] CO2 32 22 - 32 mEq/L 05/21/2017 20:54 EDT [facility] Blood specimen (specimen) BLOOD SPECIMEN / Unknown 05/21/2017 20:08 EDT 05/21/2017 20:28 EDT Maria Antonia Zimmerman MD CHEMISTRY & BLOOD GA S ORDERABLES [facility] [address] [place] [address] * PERMANENT PACEMAKER PROCEDURE (05/21/2017 19:42 EDT) Anatomical Region Laterality Modality Other 05/21/2017 19:4 2 EDT Narrative 05/21/2017 20:01 EDT *Cardiology* [address] [place] [address] Lead Revision Patient: David Mera ? Study Date: ?05/21/2017 ? Accession #: ? [id number] : ? 1950 Referring: Katia Mccallum Attending: [...] and the lead was extracted. A 7 Bulgarian safety sheath was advanced over the wire [...] topical skin adhesive. IMPLANTED HARDWARE: Implanted device: [employer] - [employer] [facility] - Serial number: [id number]. Implanted originally on 05-02-2017. LEAD PARAMETERS + + + + + Lead # ? 1 ? 1 ? 2 ? + + + + + Chamber ? RA ? RA ? RV ? + + + + + Date implanted ?? 05/02/2017 ? 05/21/2017 ? 05/02/2017 ? + + + + + Model ? [employer] Medtronic Select [employer] Sci 7527 ?? information ? 7772 ? Secure-59 [id number] ? + + + + + Serial number ?? [id number] ? [id number] ? [id number] ? + + + + + Location [...] Seng Rand MD - 05/21/2017 *Cardiology* [address] [place] [address] Lead Revision Patient: David Mera Study Date: [...] and the lead was extracted. A 7 Bulgarian safety sheath was advanced over the wire [...] topical skin adhesive. IMPLANTED HARDWARE: Implanted device: [employer] - [employer] - Serial number: [id number]. Implanted originally on 05-02-2017. LEAD PARAMETERS + + + + + Lead # 1 1 2 + + + + + Chamber RA RA RV + + + + + Date implanted 05/02/2017 05/21/2017 05/02/2017 + + + + + Model [employer] Medtronic Select Roosevelt Sci 7742 information 7740 Secure-59 [id number] + + + + + Serial number [id number] + + + + + Location RA [...] 05/21/2017 20:01 Seng Rand MD PhD FEI Leung ORDERABLES * INPATIENT ADD-ON (05/21/2017 18:20 EDT) Tests to be added FREE T4,TSH 05/21/2017 18:16 EDT [facility] Number for problems [id number] 05/21/2017 18:23 EDT [facility] Accession number [id number] 05/21/2017 18:23 EDT [facility] TOPOGRAPHY UNKNOWN / Unknown 05/21/2017 18:20 EDT 05/21/2017 18:22 EDT Jayesh Garcia MD HEMATOLOGY & PF4 O RDERABLES [facility] [address] [place] [address] * CREATININE, URINE RANDOM (05/21/2017 18:20 EDT) Creatinine, Urn Petty 26.2 mg/dl 05/21/2017 21:25 EDT [facility] Urine specimen (specimen) URINE / Unknown 05/21/2017 18:20 EDT 05/21/2017 21:06 EDT Jayesh Garcia MD URINALYSIS ORDERAB LES Performing Organization Address [facility] Co de Phone Number [facility] [address] [place] [address] * PROTEIN, TOTAL, RANDOM, URINE (05/21/2017 18:20 EDT) Tot Prot,Ur Random 21 mg/dl 05/21/2017 21:25 EDT [facility] Urine specimen (specimen) URINE / Unknown 05/21/2017 18:20 EDT 05/21/2017 21:06 EDT Jayesh Garcia MD URINALYSIS ORDERAB LES Performing Organization Address [facility] de Phone Number [facility] [address] [place] [address] * ECHOCARDIOGRAM LIMITED (05/21/2017 18:19 EDT) Anatomical Region Laterality Modality Other 05/21/2017 18:1 9 EDT Narrative 05/22/2017 8:34 EDT *Interpreting Group:* *[facility]* [address] [place] [address] Date of study: 05/21/2017 Transthoracic Echocardiography M-mode, [...] stop time: ??07:33 PM. PERFORMING ?? [employer], PROPERTY UNDERWRITER ??Emilia Corey RDCS *PROCEDURE DATA* Procedure information: ??This study was interpreted by [facility]. Pertinent images and digital data are archived for permanent storage and are available for subsequent review. Study status: ??STAT. Transthoracic echocardiography. ??M-mode, limited 2D, limited spectral Doppler, and color Doppler. A Transthoracic Echocardiogram was performed. Scanning was performed from the parasternal, apical, and subcostal acoustic windows. Images were obtained using an [employer] 13 cardiac ultrasound machine. Image quality was [...] Rubio MD - 05/22/2017 *Interpreting Group:* *[facility]* [address] [place] [id number] Date of study: 05/21/2017 Transthoracic Echocardiography M-mode, [...] Test stop time: 07:33 PM. PERFORMING [employer], PROPERTY UNDERWRITER Emilia Corey RDCS *PROCEDURE DATA* Procedure information: This study was interpreted by [facility]. Pertinent images and [...] 0.47 - 4.68 uIU/ml 05/21/2017 19:42 EDT [facility] BLOOD SPECIMEN / Unknown 05/21/2017 14:02 EDT 05/21/2017 14:12 EDT Maria Antonia Zimmerman MD CHEMISTRY & BLOOD GA S ORDERABLES [facility] [address] [place] [address] * T4 FREE (05/21/2017 14:02 EDT) T4, Free 1.5 0.8 - 2.2 ng/dl 05/21/2017 19:29 EDT [facility] BLOOD SPECIMEN / Unknown 05/21/2017 14:02 EDT 05/21/2017 14:12 EDT Maria Antonia Zimmerman MD CHEMISTRY & BLOOD GA S ORDERABLES Performing Organization Address City/[facility] Co de Phone Number [facility] [address] [place] [address] * (ABNORMAL) ELECTROLYTES (05/21/2017 14:02 EDT) Sodium 116(LL) 136 - 145 mEq/L 05/21/2017 14:53 EDT [facility] Potassium 4.1 3.5 - 5.0 mEq/L 05/21/2017 14:53 EDT [facility] Chloride 78(L) 96 - 110 mEq/L 05/21/2017 14:53 EDT [facility] CO2 28 22 - 32 mEq/L 05/21/2017 14:53 EDT [facility] Blood specimen (specimen) BLOOD SPECIMEN / Unknown 05/21/2017 14:02 EDT 05/21/2017 14:12 EDT Maria Antonia Zimmerman MD CHEMISTRY & BLOOD GA S ORDERABLES Performing Organization Address City/[facility]/ZIP Co de Phone Number [facility] [facility] [address] [place] [address] * ECHOCARDIOGRAM (05/21/2017 10:30 EDT) Anatomical Region Laterality Modality Other 05/21/2017 10:3 0 EDT Narrative 05/21/2017 10:48 EDT *Interpreting Group:* *[facility]* [address] [place] [address] Date of study: 05/21/2017 Transthoracic Echocardiography M-mode, [...] [facility], Ip ORDERING ? Maria Antonia Zimmerman PROPERTY UNDERWRITER ??Jose G Bauer REFERRING ?Katia Mccallum *PROCEDURE DATA* Procedure information: ??The patient was identified by two identifiers. This study was interpreted by [facility]. Pertinent images and [...] Andrade MD - 05/21/2017 *Interpreting Group:* *[facility]* [address] [place] [address] Date of study: 05/21/2017 Transthoracic Echocardiography M-mode, [...] PERFORMING [facility], Ip ORDERING Maria Antonia Zimmerman PROPERTY UNDERWRITER Jose G Bauer Katelyn Doran *PROCEDURE DATA* Procedure information: The patient was identified by two identifiers. This study was interpreted by [facility]. Pertinent images and [...] 117(LL) 136 - 145 mEq/L 05/21/2017 11:15 [facility] Potassium 3.7 3.5 - 5.0 mEq/L 05/21/2017 11:15 [facility] Chloride 77(L) 96 - 110 mEq/L 05/21/2017 11:15 [facility] CO2 30 22 - 32 mEq/L 05/21/2017 11:15 [facility] Blood specimen (specimen) BLOOD SPECIMEN / Unknown 05/21/2017 9:55 EDT 05/21/2017 10:59 EDT Maria Antonia Zimmerman MD CHEMISTRY & BLOOD GA S ORDERABLES [facility] [address] [place] [address] * EKG 12-LEAD (05/21/2017 7:12 EDT) 05/21/2017 7:12 EDT Narrative [facility] EKG - 05/23/2017 15:04 EDT ? [facility] ? Test Date: ?2017-05-21 Pat Name: ? DAVID MERA ?Department: ?? [facility] [address] ? Room: ? MW531 Gender: ? 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 [id number] : ?1950 ? Requested By: PRADIP MONET Order Number: [id number] ? Martha OAKES: ?? SENG PERSON SA, MD ? Measurements Intervals ?[place] ? Rate: ? 75 ? P: ?31 [...] Seng Brody Sa, MD - 05/23/2017 [facility] Test Date: 2017-05-21 Pat Name: DAVID MERA Department: [place] [address] Room: [facility] Gender: M [employer] Printing Machine Set Up Operator: [id number] : 1950 Requested By: PRADIP MONET Order Number: [id number] Martha MD: SENG ROBLEDO Measurements Intervals [place] Rate: 75 P: 31 [place]: 173 QRS: [...] Antonia Zimmerman MD CARDIAC ECG ORDERABL ES [facility] EKG * INPATIENT ADD-ON (05/21/2017 6:55 EDT) Tests to be added MAGNESIUM 05/21/2017 6:53 EDT [facility] Number for problems [id number] 05/21/2017 7:10 EDT [facility] Accession number [id number] 05/21/2017 7:10 EDT [facility] TOPOGRAPHY UNKNOWN / Unknown 05/21/2017 6:55 EDT 05/21/2017 7:10 EDT Maria Antonia Zimmerman MD HEMATOLOGY & PF4 ORD ERABLES Performing Organization Address City/[facility] Co de Phone Number [facility] [address] [place] [address] * INPATIENT ADD-ON (05/21/2017 6:40 EDT) Tests to be added ALT,ALK PHOS,AST,T OTAL BILI,ALBUM IN 05/21/2017 6:38 EDT [facility] Number for problems [id number] 05/21/2017 6:50 EDT [facility] Accession number [id number] 05/21/2017 6:50 EDT [facility] TOPOGRAPHY UNKNOWN / Unknown 05/21/2017 6:40 EDT 05/21/2017 6:49 EDT Maria Antonia Zimmerman MD HEMATOLOGY & PF4 ORD ERABLES [facility] [address] [place] [address] * MAGNESIUM (05/21/2017 5:57 EDT) Magnesium 1.8 1.7 - 2.8 mg/dl 05/21/2017 7:53 EDT [facility] BLOOD SPECIMEN / Unknown 05/21/2017 5:57 EDT 05/21/2017 6:09 EDT Maria Antonia Zimmerman MD CHEMISTRY & BLOOD GA S ORDERABLES Performing Organization Address City/[facility]/ZIP Co de Phone Number [facility] [address] [place] [address] * BILIRUBIN, TOTAL (05/21/2017 5:57 EDT) Bilirubin, Total 0.6 <1.4 mg/dl 05/21/2017 7:30 EDT [facility] BLOOD SPECIMEN / Unknown 05/21/2017 5:57 EDT 05/21/2017 6:09 EDT Maria Antonia Zimmerman MD CHEMISTRY & BLOOD GA S ORDERABLES Performing Organization Address [facility]/ZIP Co de Phone Number [facility] [address] [place] [address] * AST (05/21/2017 5:57 EDT) Pathologist [facility] AST 33 15 - 46 U/L 05/21/2017 7:30 EDT [facility] BLOOD SPECIMEN / Unknown 05/21/2017 5:57 EDT 05/21/2017 6:09 EDT Maria Antonia Zimmerman MD CHEMISTRY & BLOOD GA S ORDERABLES Performing Organization Address [facility] Co de Phone Number [facility] [address] [place] [address] * ALT (05/21/2017 5:57 EDT) ALT 39 21 - 72 U/L 05/21/2017 7:30 EDT [facility] BLOOD SPECIMEN / Unknown 05/21/2017 5:57 EDT 05/21/2017 6:09 EDT Maria Antonia Zimmerman MD CHEMISTRY & BLOOD GA S ORDERABLES Performing Organization Address City/[facility]/ZIP Co de Phone Number [facility] [address] [place] [address] * ALKALINE PHOSPHATASE (05/21/2017 5:57 EDT) Total Alkaline Phosphatase 81 38 - 126 U/L 05/21/2017 7:30 EDT [facility] BLOOD SPECIMEN / Unknown 05/21/2017 5:57 EDT 05/21/2017 6:09 EDT Maria Antonia Zimmerman MD CHEMISTRY & BLOOD GA S ORDERABLES Performing Organization Address [facility] Co de Phone Number [facility] [address] [place] [address] * (ABNORMAL) ALBUMIN (05/21/2017 5:57 EDT) Albumin 3.0(L) 3.4 - 4.9 g/dl 05/21/2017 7:30 EDT [facility] BLOOD SPECIMEN / Unknown 05/21/2017 5:57 EDT 05/21/2017 6:09 EDT Maria Antonia Zimmerman MD CHEMISTRY & BLOOD GA S ORDERABLES Performing Organization Address [facility] Co de Phone Number [facility] [address] [place] [address] * (ABNORMAL) ELECTROLYTES (05/21/2017 5:57 EDT) Sodium 117(LL) 136 - 145 mEq/L 05/21/2017 6:47 EDT [facility] Potassium 3.5 3.5 - 5.0 mEq/L 05/21/2017 6:47 EDT [facility] Chloride 76(L) 96 - 110 mEq/L 05/21/2017 6:47 EDT [facility] CO2 31 22 - 32 mEq/L 05/21/2017 6:47 EDT [facility] Blood specimen (specimen) BLOOD SPECIMEN / Unknown 05/21/2017 5:57 EDT 05/21/2017 6:12 EDT Maria Antonia Zimmerman MD CHEMISTRY & BLOOD GA S ORDERABLES Performing Organization Address [facility]/ZIP Co de Phone Number [facility] [address] [place] [address] * (ABNORMAL) PROTIME (05/21/2017 5:57 EDT) Pro Time 16.3(H) 10.3 - 13.4 secs 05/21/2017 6:30 EDT [facility] Comment:NOTE NEW REFERENCE R ANTONIETA OF APR 03 2017 I.N.R. 1.4(H) 0.9 - 1.1 Ratio 05/21/2017 6:30 EDT [facility] Comment: Moderate Intensity Coumadin INR = 2.0-3.0 Adjustments in anticoagulant therapy dose should be based upon the INR and NOT the Pro Time. Blood specimen (specimen) BLOOD SPECIMEN / Unknown 05/21/2017 5:57 EDT 05/21/2017 6:09 EDT Maria Antonia Zimmerman MD HEMATOLOGY & PF4 ORD ERABLES Performing Organization Address [facility] Co de Phone Number [facility] [address] [place] [address] * HIV 1/2 ANTIGEN AND ANTIBODY, 4TH GENERATION (05/21/2017 5:57 EDT) [facility] HIV 1/2 Antibody Negative Negative 05/22/19 18 11:32 EDT [facility] Comment: Fourth generation assay performed on the [employer]. If acute HIV-1 infection is suspected in a high risk patient, submit plasma specimen for HIV-1 RNA quantification test. Blood specimen (specimen) BLOOD SPECIMEN / Unknown 05/21/2017 5:57 EDT 05/21/2017 6:09 EDT Maria Antonia Zimmerman MD IMMUNOLOGY AND SEROL OGY ORDERABLES Performing Organization Address City/[facility] Co de Phone Number [facility] [address] [place] [address] * (ABNORMAL) BUN (05/21/2017 5:57 EDT) BUN 5(L) 10 - 26 mg/dl 05/21/2017 6:34 EDT [facility] Blood specimen (specimen) BLOOD SPECIMEN / Unknown 05/21/2017 5:57 EDT 05/21/2017 6:09 EDT Maria Antonia Zimmerman MD CHEMISTRY & BLOOD GA S ORDERABLES Performing Organization Address City/[facility] Co de Phone Number [facility] [address] [place] [address] * (ABNORMAL) CREATININE (05/21/2017 5:57 EDT) Creatinine 0.43(L) 0.66 - 1.25 mg/dl 05/21/2017 6:34 EDT [facility] GFR, Calculated 120 >60 ml/min/1.7 3m2 05/21/2017 6:34 EDT [facility] Comment: eGFR calculated using CKD-EPI equation for non Americans. Multiply eGFR by 1.16 for Americans. Blood specimen (specimen) BLOOD SPECIMEN / Unknown 05/21/2017 5:57 EDT 05/21/2017 6:09 EDT Maria Antonia Zimmerman MD CHEMISTRY & BLOOD GA S ORDERABLES Performing Organization Address City/[facility] Co de Phone Number [facility] [address] [place] [address] * (ABNORMAL) HEMAGRAM AND DIFFERENTIAL (05/21/2017 5:57 EDT) WBC 6.90 4.0 - 10.4 K/cmm 05/21/2017 6:30 EDT [facility] RBC 3.25(L) 4.36 - 5.78 M/cmm 05/21/2017 6:30 EDT [facility] Hemoglobin 10.9(L) 13.8 - 17.3 gm/dl 05/21/2017 6:30 EDT [facility] HCT 29.7(L) 39.5 - 50.2 % 05/21/2017 6:30 [facility] MCV 91 81 - 95 fl 05/21/2017 6:30 [facility] MCH 33.5(H) 27.6 - 33.0 pg 05/21/2017 6:30 [facility] MCHC 36.7(H) 32.8 - 36.4 gm/dl 05/21/2017 6:30 [facility] RDW-CV 10.6 <14.2 % 05/21/2017 6:30 [facility] RDW-SD 36.1 <46.0 fl 05/21/2017 6:30 [facility] PLT 266 141 - 377 K/cmm 05/21/2017 6:30 [facility] MPV 10.7 9.5 - 12.7 fl 05/21/2017 6:30 [facility] % Neutrophils 61.6 % 05/21/2017 6:30 [facility] % Lymphocytes 19.0 % 05/21/2017 6:30 [facility] % Monocytes 16.7 % 05/21/2017 6:30 [facility] % Eosinophils 1.6 % 05/21/2017 6:30 [facility] % Basophils 0.7 % 05/21/2017 6:30 [facility] % Immature Grans 0.4 % 05/21/2017 6:30 [facility] ABS Neutrophils 4.25 2.20 - 8.85 K/cmm 05/21/2017 6:30 [facility] ABS Lymphs 1.31 1.09 - 3.30 K/cmm 05/21/2017 6:30 [facility] ABS Monocytes 1.15(H) 0.1 - 0.8 K/cmm 05/21/2017 6:30 [facility] ABS Eosinophils 0.11 0.03 - 0.61 K/cmm 05/21/2017 6:30 [facility] ABS Basophils 0.05 0.01 - 0.11 K/cmm 05/21/2017 6:30 EDT [facility] ABS Immature Grans 0.03 0 - 0.06 K/cmm 05/21/2017 6:30 EDT [facility] Type of Diff: Automated 05/21/2017 6:30 EDT [facility] Blood specimen (specimen) BLOOD SPECIMEN / Unknown 05/21/2017 5:57 EDT 05/21/2017 6:09 EDT Maria Antonia Zimmerman MD PACKAGES & DNA PROBE ORDERABLES Performing Organization Address [facility] de Phone Number [facility] [address] [place] [address] * (ABNORMAL) ELECTROLYTES (05/21/2017 3:28 EDT) Sodium 116(LL) 136 - 145 mEq/L 05/21/2017 4:01 EDT [facility] Potassium 3.3(L) 3.5 - 5.0 mEq/L 05/21/2017 4:01 EDT [facility] Chloride 77(L) 96 - 110 mEq/L 05/21/2017 4:01 EDT [facility] CO2 31 22 - 32 mEq/L 05/21/2017 4:01 EDT [facility] Blood specimen (specimen) BLOOD SPECIMEN / Unknown 05/21/2017 3:28 EDT 05/21/2017 3:35 EDT Maria Antonia Zimmerman MD CHEMISTRY & BLOOD GA S ORDERABLES Performing Organization Address [facility] de Phone Number [facility] [address] [place] [address] * EKG 12-LEAD (05/21/2017 1:25 EDT) 05/21/2017 1:25 EDT Narrative [facility] EKG - 05/23/2017 10:35 EDT ? [facility] ? Test Date: ?2017-05-21 Pat Name: ? DAVID MERA ?Department: ?? [facility] [address] ? Room: ? MW531 Gender: ? 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 [id number] : ?1950 ? Requested By: PRADIP MONET Order Number: [id number] ? Reading MD: ?? PIERRE RUBIO MD ? Measurements Intervals ?[place] ? Rate: ? 75 ? 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: [id number] : 1950 Requested By: PRADIP MONET Order Number: [id number] Martha MD: PIERRE RUBIO MD Measurements Intervals [place] Rate: 75 P: 13 [place]: 160 QRS: [...] Antonia Zimmerman MD CARDIAC ECG ORDERABL ES [facility] EKG * INPATIENT ADD-ON (05/21/2017 0:00 EDT) Tests to be added URINE OSM 05/20/2017 23:58 EDT [facility] Number for problems Not Given 05/21/2017 0:02 EDT [facility] Accession number [id number] 05/21/2017 0:02 EDT [facility] TOPOGRAPHY UNKNOWN / Unknown 05/21/2017 05/21/2017 0:02 EDT Maria Antonia Zimmerman MD HEMATOLOGY & PF4 ORD ERABLES Performing Organization Address City/[facility]/ZIP Co de Phone Number [facility] [address] [place] [address] * OSMOLALITY, URINE (05/20/2017 23:45 EDT) Osmolality, Ur 251 150 - 1,150 mos/kg 05/21/2017 0:15 EDT [facility] URINE / Unknown 05/20/2017 2 3:45 EDT 05/20/2017 23:55 EDT Laly Kim MD URINALYSIS ORDERRyan PFEIFFER Performing Organization Address [facility] Co de Phone Number [facility] [address] [place] [address] * SODIUM, URINE RANDOM (05/20/2017 23:45 EDT) Sodium, Ur 18.0 mEq/L 05/21/2017 0:18 EDT [facility] Urine specimen (specimen) URINE / Unknown 05/20/2017 23:45 EDT 05/20/2017 23:55 EDT Laly Kim MD URINALYSIS ORDERRyan PFEIFFER Performing Organization Address [facility] Co de Phone Number [facility] [address] [place] [address] * CREATININE, URINE RANDOM (05/20/2017 23:45 EDT) Creatinine, Urn Petty 43.1 mg/dl 05/21/2017 0:18 EDT [facility] Urine specimen (specimen) URINE / Unknown 05/20/2017 23:45 EDT 05/20/2017 23:55 EDT Laly Kim MD URINALYSIS ORDERRyan PFEIFFER Performing Organization Address [facility]/ZIP Co de Phone Number [facility] [address] [place] [address] * POCT US CARDIAC (05/20/2017 22:45 EDT) Anatomical Region Laterality Modality Other 05/20/2017 22:4 5 EDT 05/20/2017 23:51 EDT Narrative 05/20/2017 23:51 EDT [facility] - Ultrasound Exam Date: 05/20/2017 Exam Type: POCT US CARDIAC Yard Hostler: Laly Kim MD Attending: Laly Kim MD [...] was performed and interpreted by the [facility] ED Staff Procedure Note Laly Kim MD - 05/20/2017 [facility] - Ultrasound Exam Date: 05/20/2017 Exam Type: POCT US CARDIAC Yard Hostler: Laly Kim MD Attending: Laly Kim MD [...] was performed and interpreted by the [facility] ED Staff Laly Kim MD IMG POCT US ORDER IRWIN * (ABNORMAL) BASIC METABOLIC PANEL (BMP) (05/20/2017 22:40 EDT) Sodium 116(LL) 136 - 145 mEq/L 05/20/2017 23:14 [facility] Potassium 3.6 3.5 - 5.0 mEq/L 05/20/2017 23:14 [facility] Chloride 74(L) 96 - 110 mEq/L 05/20/2017 23:14 [facility] CO2 32 22 - 32 mEq/L 05/20/2017 23:14 [facility] BUN 6(L) 10 - 26 mg/dl 05/20/2017 23:14 [facility] Creatinine 0.44(L) 0.66 - 1.25 mg/dl 05/20/2017 23:14 [facility] GFR, Calculated 119 >60 ml/min/1.7 3m2 05/20/2017 23:14 [facility] Comment: eGFR calculated using CKD-EPI equation for non Americans. Multiply eGFR by 1.16 for Americans. Calcium 8.7 8.5 - 10.5 mg/dl 05/20/2017 23:14 [facility] Calculated Calcium 9.2 8.5 - 10.5 mg/dl 05/20/2017 23:14 [facility] Glucose, Serum 108(H) 70 - 100 mg/dl 05/20/2017 23:14 [facility] Fasting? Unknown 05/20/2017 23:14 [facility] Blood specimen (specimen) BLOOD SPECIMEN / Unknown 05/20/2017 22:40 EDT 05/20/2017 22:58 EDT Laly Kim MD CHEMISTRY & BLOOD GAS ORDERABLES [facility] [address] [place] [address] documented in this encounter Visit Diagnoses Diagnosis [...] 10 mg, oral, DAILY, First dose on [place] 05/22/17 at 0900, Until Discontinued, Routine Given 05/22/2017 [...] Until Discontinued, Routine 0808 (Given - Provider: uRpert Earl RN) torsemide (DEMADEX) tablet 40 mg [...] 05/02 documented in this encounter Care Teams Process Manager Relationship Specialty Start Date End Date Katia Stone, PABijalC [address] [place] [id number] PCP - General 05/02/17 documented as of this encounter
--- OUTSIDE RECORDS SUMMARY | 2023-10-13 22:27 | XMS_ITS | Encounter Summary ---
Author Organization [facility] Address [address] [place] [address] Care Team Providers Care Claims Auditor Name Role Phone Katia Stone PA-C Primary Care Provider [phone]- [phone] Reason for Referral * Consult (Routine) - New Request Specialty Diagnoses / Procedures Referred By Contac t Referred To Contact Diagnoses Heart failure, unspecified HF chronicity, unspecified heart failure type (HCC-CMS) Subacute effusive constrictive pericarditis Michael Pratt MD [facility] [place] [address] Referral ID Status Reason Start Date Expiration Date Visits Requested Visits Authorized [id number] New Request Specialty Services Required 06/16/2017 1 1 Question Answer Reason for Request: f/u constrictive pericarditis Expected Discharge Date (Inpatient Only): 06/16/2017 Practice Site (External Referral Only): [facility] Comments With Dr. Torres * Follow Up (3 - 10 Business Days) - Receiving Office to Obtain Authorization Specialty Diagnoses / Procedures Referred By Contac t Referred To Contact Diagnoses Heart failure, unspecified HF chronicity, unspecified heart failure type (HCC-CMS) Subacute effusive constrictive pericarditis Bg Atwood MD [address] [place] [address] Referral ID Status Reason Start Date Expiration Date Visits Requested Visits Authorized [id number] Receiving Office to Obtain Authorization Continuity of [...] effusive constrictive pericarditis Bg Atwood MD [address] [place] [id number] [address] Referral ID Status Reason Start Date Expiration Date Visits Requested Visits Authorized [id number] New Request Specialty Services Required 06/16/2017 1 1 Question Answer I certify that this patient is under my care and that I, or another Medicare allowed practitioner (DO CHAMP, PACHECO) working with me, had a njet-bn-ablk encounter with this patient on this date: 06/16/2017 I further certify that the oreu-kq-ucbc encounter was in whole or in part [...] ambulation Nursing skilled care requested: Nursing asessment FDC assessment needed related to this encounter: Response to new or changed medication Expected Discharge Date (Inpatient Only): 06/16/2017 Encounter Details Date Type Department Care Team (Late st Contact Info) Description 06/12/2017 17:51 EDT - 06/16/2017 16:57 EDT Hospital Encounter [facility] Cardiac/Telemetry Unit [address] [place] [address] Seng Rand MD PhD [address] [facility] Level [address] [place] [address] Bg Atwood MD [address] [address] Tony Rosenberg MD [address] [address] Heart failure, unspecified HF chronicity, [...] unspecified HF chronicity, unspecified heart failure type ([facility]) 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 Heart failure ([facility]) 06/12/2017 Resolved Hospital Problems Diagnosis Date Noted [...] orthopnea on a follow up exam at [facility]. He was transferred to [facility] due to concern for subacute [...] Component Value Units Date/Time Bacterial Culture/Smear, Fluid [[id number]] Collected: 06/13/17 0826 Lab Status: Preliminary result Specimen: FOSMIC from Pleural Fluid Updated: 06/15/17 07 Gram Smear Result Polys present No bacteria seen Result No growth Bacterial Culture, Blood [[id number]] Collected: 06/12/172246 Lab Status: In process Specimen: Blood Updated: 06/12/172320 Bacterial Culture, Blood [[id number]] Collected: 06/12/172239 Lab Status: In process Specimen: [...] 05/01/2017 Discharge Follow Up Appointments Scheduled with [facility] Upcoming Appointments Aug 06, 2017 15:20 EDT Follow Up Return with Tony Rosenberg MD [facility] Cardiology [facility] (--) [address] [facility] [address] Appointments Outside of [facility] We Will Schedule Follow-up appointments and procedures Amb Consult/Follow Up Cardiology With Dr. Torres Reason for Request: f/u constrictive pericarditis Expected Discharge Date (Inpatient Only): 06/16/2017 Practice Site (External Referral Only): [facility] Authorizing Provider: Michael Pratt MD Amb Consult/Follow Up Primary Care Physician Reason for Request: f/u hospitalization for constrictive pericarditis Expected Discharge Date (Inpatient Only): 06/16/2017 Authorizing Provider: Bg Atwood MD Home Health Agency-Other I certify that this patient is under my care and that I, or another Medicare authorized non-physician practitioner (PA or AUTO BODY SHOP MANAGER) or resident working with me, had a gqha-hy-vkmu encounter with this patient on this date: 06/16/2017 I further certify that the bpte-zs-nxut encounter was in whole or in part related to the reason thepatient needs home health care.: Yes The patient has had a ttac-jo-ijbz visit by me or one of my [...] and ambulation Skilled Care Requested: Nursing asessment FDC assessment needed related to this encounter: Response to new or changed medication Expected Discharge Date (Inpatient Only): 06/16/2017 Authorizing Provider: Bg Atwood MD Additional Information: Please follow up at [facility] with Dr. Tony Rosenberg on August 06, 2017 at 3:20 pm. If you have questions please call [phone]. Please follow up with your primary care physician, Katia Mccallum, on June 17, 2017 at 10:45 am. Ifyou have any questions please call [phone]. Studies We Will Schedule Appointments We Recommend but have not been Scheduled None Michael Pratt MD 06/16/2017 15:18 I evaluated the patient and agree with the discharge summary as outlined above by Dr. Pratt. Mr. Farfan was feeling much better today. 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 BG ATWOOD MD Attending Pie Cutter [facility] documented in this encounter Discharge Instructions * Appointments* Desi Thomas - 06/16/2017 12:01 EDT Please follow up at [facility] with Dr. Tony Rosenberg on August 06, 2017 at 3:20 pm. If you have questions please call [phone]. Please follow up with your primary care physician, Katia Mccallum, on June 17, 2017 at 10:45 am. Ifyou have any questions please call [phone]. * Discharge Instr - Other Orders* Melida [...] Care Everywhere. * HEART FAILURE: AVOIDING TRIGGERS ([place]) documented in this encounter Medications at Time [...] Services. D/C Summary was faxed to his Guest House Manager at Dr. Mccallum's office. Desi Villatoro RN #[id number] * Tej Casanova MD - 06/15/2017 0816 [...] daily with taper in near future - CUSTOM FURRIER torsemide 40mg daily Hypokalemia/Hypomagnesemia -replete as needed [...] catheterization for tomorrow. BG ATWOOD MD Attending Pie Cutter [facility] * Michael Pratt MD - [...] daily with taper in near future - CUSTOM FURRIER torsemide 40mg daily Pleural Effusions: Associated with [...] not lie flat. BG ATWOOD MD Attending Pie Cutter [facility] * Michael Pratt MD - [...] into our system or repeat echo - CUSTOM FURRIER torsemide 40mg daily - Medical management pending [...] appetite. 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 O/ wt-100.7 kg Prior wt-~108 kg(05/24/17) [...] to d/c. Magalis Berger RD, CD X/cover #[id number] * Ameena Teixeira - 06/13/2017 1154 EDT Initial Case Management/Social Work Assessment and Discharge Plan/Readmission Risk Assessment REASON FOR ADMISSION: Heart failure ([facility]) Patient understands reason for admission: Yes PATIENT CONTACT INFO VERIFIED: Yes PATIENT ADDRESS VERIFIED: Yes (David is staying with his son Mo temporarily in [place]. He did not know the address) LIVING [...] his sons have been driving him) CULTURAL, ROMAN CATHOLIC and/or LANGUAGE factors affecting health care/discharge planning: [...] AID - [address] - [place], [place] - [address] [facility] [address] [facility] ([facility] - [place], [place] - [address] [address] Home Health: [facility] Other: Other (enter in comments) (he [facility] a [facility]) POST HOSPITAL TRANSITION PLAN: Likely Dc to his son's house with continuation of RN services. Hereports that he has only been drinking 1-2 beers/day. He denied any concern over his ETOH use. AMEENA TEIXEIRA 06/13/2017 11:59 For Ivelisse Rueda * Desi Villatoro, RN - 06/13/2017 0925 EDT 06/13: Received a call from Yessica Card at [facility]. She is the patient's Guest House Manager. I've faxed patient's H&P to her and will keep her up to date on patient's progress and projected d/c. Yessica Card, Guest House Manager P: [phone] ext [phone] F: [phone] Desi Villatoro RN [facility] #[id number] * Renetta Martini, TISH - 06/13/2017 9541 EDT Pt received from [facility] to angio [...] Notes * Denilson Shannon MD - 06/12/2017 1432 EDT Cardiology Admitting H&P Admit Date: 06/12/2017 [...] follow up performed by Dr. Rosenberg in [place] (has now completed 14 days of ibuprofen). After seeing Dr. Rosenberg yesterday and having an echo performed, he was noted to have worsening dyspnea, orthopnea, and increasing pleural effusions. He denies chest pain, diaphoresis, arm/jaw pain, wheezing, nausea/vomiting, change in bowels, or change in urination. He notes an ongoing cough with worsening abdominal pain from coughing so frequently. He was transferred to [facility] for consideration of thoracentesis and [...] tomorrow (either bedside or IR guided) - CUSTOM FURRIER torsemide 40mg daily - NPO after midnight [...] Addendum 66 yo man who lives in [facility] and follows with Dr. Rosenberg with a [...] - team attempted to obtain echo from [facility] however unable to do so until AM - if no other etiology found consider switching to colchicine + prednisone - blood cultures Denilson Shannon MD [employer]bf[employer] Developer Pager [phone] 06/12/2017 21:56 Associated attestation - Bg Atwood [...] thoracentesis as well. BG ATWOOD MD Attending Pie Cutter [facility] documented in this encounter Procedure Notes * Randy Ireland PA-C - 06/13/2017 0839 EDT IR Procedure Note Procedure: Requested U/S guided bilateral thoracentesis Date Performed: 06/13/2017 Radiologist/Culinary Worker(s):MD Andrea /MINGO Ireland Sedation/Anesthesia: local Time Out: [...] without difficulty. Discharge home orders received. Action: [facility] called and report given. They are [...] Care - Michelle Godinez RN - 06/13/2017 3639 EDT Problem: High Fall Risk: Goal: Patient [...] to room/call garza system. Admission database completed. groundwater monitoring technician applied. Plan of care reviewed to include [...] EDT) 06/29/2017 16:0 1 EDT Scan 2 Special Officer PROCEDURE/MINOR VELMA GICAL ORDERABLES * IMPLANT RECORD - SCANNED (06/19/2017 14:15 EDT) 06/19/2017 14:1 5 EDT Scan 2 Special Officer PROCEDURE/MINOR VELMA GICAL ORDERABLES * ECG REPORT - SCANNED (06/19/2017 14:15 EDT) 06/19/2017 14:1 5 EDT Scan 2 Special Officer PROCEDURE/MINOR VELMA GICAL ORDERABLES * MAGNESIUM (06/16/2017 5:39 EDT) Magnesium 1.9 1.7 - 2.8 mg/dl 06/16/2017 6:48 EDT [facility] Blood specimen (specimen) BLOOD SPECIMEN / Unknown 06/16/2017 5:39 EDT 06/16/2017 6:15 EDT Michael Pratt MD CHEMISTRY & BLOOD GA S ORDERABLES [facility] [address] [place] [address] * (ABNORMAL) ELECTROLYTES (06/16/2017 5:39 EDT) Sodium 133(L) 136 - 145 mEq/L 06/16/2017 6:48 EDT [facility] Potassium 3.7 3.5 - 5.0 mEq/L 06/16/2017 6:48 [facility] Chloride 90(L) 96 - 110 mEq/L 06/16/2017 6:48 [facility] CO2 33(H) 22 - 32 mEq/L 06/16/2017 6:48 [facility] Blood specimen (specimen) BLOOD SPECIMEN / Unknown 06/16/2017 5:39 EDT 06/16/2017 6:15 EDT Michael Pratt MD CHEMISTRY & BLOOD GA S ORDERABLES Performing Organization Address City/State/[facility] Co de Phone Number [facility] [address] [place] [address] * (ABNORMAL) HEMAGRAM (06/16/2017 5:39 EDT) WBC 10.81(H) 4.0 - 10.4 K/cmm 06/16/2017 6:28 [facility] RBC 3.83(L) 4.36 - 5.78 M/cmm 06/16/2017 6:28 [facility] Hemoglobin 12.4(L) 13.8 - 17.3 gm/dl 06/16/2017 6:28 [facility] HCT 35.6(L) 39.5 - 50.2 % 06/16/2017 6:28 [facility] MCV 93 81 - 95 fl 06/16/2017 6:28 [facility] MCH 32.4 27.6 - 33.0 pg 06/16/2017 6:28 [facility] MCHC 34.8 32.8 - 36.4 gm/dl 06/16/2017 6:28 [facility] RDW-CV 11.9 <14.2 % 06/16/2017 6:28 [facility] RDW-SD 40.8 <46.0 fl 06/16/2017 6:28 [facility] PLT 204 141 - 377 K/cmm 06/16/2017 6:28 [facility] MPV 12.4 9.5 - 12.7 fl 06/16/2017 6:28 EDT [facility] Blood specimen (specimen) BLOOD SPECIMEN / Unknown 06/16/2017 5:39 EDT 06/16/2017 6:15 EDT Michael Pratt MD HEMATOLOGY & PF4 ORD ERABLES Performing Organization Address City/[facility]/ZIP Co de Phone Number [facility] [address] [place] [address] * CREATININE (06/16/2017 5:39 EDT) Creatinine 0.67 0.66 - 1.25 mg/dl 06/16/2017 6:48 EDT [facility] GFR, Calculated 100 >60 ml/min/1.7 3m2 06/16/2017 6:48 EDT [facility] Comment: eGFR calculated using CKD-EPI equation for non Americans. Multiply eGFR by 1.16 for Americans. Blood specimen (specimen) BLOOD SPECIMEN / Unknown 06/16/2017 5:39 EDT 06/16/2017 6:15 EDT Michael Pratt MD CHEMISTRY & BLOOD GA S ORDERABLES Performing Organization Address [facility] Co de Phone Number [facility] [address] [place] [address] * MAGNESIUM (06/15/2017 5:31 EDT) Magnesium 1.7 1.7 - 2.8 mg/dl 06/15/2017 6:24 EDT [facility] Blood specimen (specimen) BLOOD SPECIMEN / Unknown 06/15/2017 5:31 EDT 06/15/2017 5:48 EDT Michael Pratt MD CHEMISTRY & BLOOD GA S ORDERABLES Performing Organization Address City/[facility]/ZIP Co de Phone Number [facility] [address] [place] [address] * (ABNORMAL) ELECTROLYTES (06/15/2017 5:31 EDT) Pathologist [facility] Sodium 133(L) 136 - 145 mEq/L 06/15/2017 6:24 EDT [facility] Potassium 3.4(L) 3.5 - 5.0 mEq/L 06/15/2017 6:24 EDT [facility] Chloride 90(L) 96 - 110 mEq/L 06/15/2017 6:24 EDT [facility] CO2 34(H) 22 - 32 mEq/L 06/15/2017 6:24 EDT [facility] Blood specimen (specimen) BLOOD SPECIMEN / Unknown 06/15/2017 5:31 EDT 06/15/2017 5:48 EDT Michael Pratt MD CHEMISTRY & BLOOD GA S ORDERABLES Performing Organization Address City/State/[facility] Co de Phone Number [facility] [address] [place] [address] * (ABNORMAL) HEMAGRAM (06/15/2017 5:31 EDT) Pathologist [facility] WBC 11.63(H) 4.0 - 10.4 K/cmm 06/15/2017 5:58 [facility] RBC 3.51(L) 4.36 - 5.78 M/cmm 06/15/2017 5:58 [facility] Hemoglobin 11.4(L) 13.8 - 17.3 gm/dl 06/15/2017 5:58 [facility] HCT 33.1(L) 39.5 - 50.2 % 06/15/2017 5:58 [facility] MCV 94 81 - 95 fl 06/15/2017 5:58 [facility] MCH 32.5 27.6 - 33.0 pg 06/15/2017 5:58 [facility] MCHC 34.4 32.8 - 36.4 gm/dl 06/15/2017 5:58 [facility] RDW-CV 12.0 <14.2 % 06/15/2017 5:58 [facility] RDW-SD 41.4 <46.0 fl 06/15/2017 5:58 EDT [facility] PLT 240 141 - 377 K/cmm 06/15/2017 5:58 EDT [facility] MPV 11.1 9.5 - 12.7 fl 06/15/2017 5:58 EDT [facility] Blood specimen (specimen) BLOOD SPECIMEN / Unknown 06/15/2017 5:31 EDT 06/15/2017 5:48 EDT Michael Pratt MD HEMATOLOGY & PF4 ORD ERABLES Performing Organization Address City/[facility] Co de Phone Number [facility] [address] [place] [address] * (ABNORMAL) CREATININE (06/15/2017 5:31 EDT) Creatinine 0.65(L) 0.66 - 1.25 mg/dl 06/15/2017 6:24 EDT [facility] GFR, Calculated 101 >60 ml/min/1.7 3m2 06/15/2017 6:24 EDT [facility] Comment: eGFR calculated using CKD-EPI equation for non Americans. Multiply eGFR by 1.16 for Americans. Blood specimen (specimen) BLOOD SPECIMEN / Unknown 06/15/2017 5:31 EDT 06/15/2017 5:48 EDT Michael Pratt MD CHEMISTRY & BLOOD GA S ORDERABLES Performing Organization Address City/[facility] Co de Phone Number [facility] [address] [place] [address] * INPATIENT ADD-ON (06/14/2017 8:00 EDT) Tests to be added PLEASE ADD ON DIFFERENTIAL TO CBC 06/14/2017 7:59 T [facility] Number for problems M5 06/14/2017 8:01 T [facility] Accession number [id number] 06/14/2017 8:01 EDT [facility] TOPOGRAPHY UNKNOWN / Unknown 06/14/2017 8:00 EDT 06/14/2017 8:01 EDT Catherine Walker MD HEMATOLOGY & PF4 ORD ERABLES Performing Organization Address City/State/[facility] Co de Phone Number [facility] [address] [place] [address] * (ABNORMAL) DIFFERENTIAL (06/14/2017 5:32 EDT) % Neutrophils 72.2 % 06/14/2017 8:47 EDT [facility] % Lymphocytes 14.9 % 06/14/2017 8:47 EDT [facility] % Monocytes 12.1 % 06/14/2017 8:47 T [facility] % Eosinophils 0.1 % 06/14/2017 8:47 [facility] % Basophils 0.2 % 06/14/2017 8:47 [facility] % Immature Grans 0.5 % 06/14/2017 8:47 [facility] ABS Neutrophils 8.96(H) 2.20 - 8.85 K/cmm 06/14/2017 8:47 EDT [facility] ABS Lymphs 1.85 1.09 - 3.30 K/cmm 06/14/2017 8:47 [facility] ABS Monocytes 1.50(H) 0.1 - 0.8 K/cmm 06/14/2017 8:47 [facility] ABS Eosinophils 0.01(L) 0.03 - 0.61 K/cmm 06/14/2017 8:47 T [facility] ABS Basophils 0.02 0.01 - 0.11 K/cmm 06/14/2017 8:47 EDT [facility] ABS Immature Grans 0.06 0 - 0.06 K/cmm 06/14/2017 8:47 [facility] Type of Diff: Automated 06/14/2017 8:47 [facility] BLOOD SPECIMEN / Unknown 06/14/2017 5:32 EDT 06/14/2017 5:53 EDT Michael Pratt MD HEMATOLOGY & PF4 ORD ERABLES [facility] [address] [place] [address] * MAGNESIUM (06/14/2017 5:32 EDT) Pathologist [facility] Magnesium 2.0 1.7 - 2.8 mg/dl 06/14/2017 6:25 EDT [facility] Blood specimen (specimen) BLOOD SPECIMEN / Unknown 06/14/2017 5:32 EDT 06/14/2017 5:53 EDT Michael Pratt MD CHEMISTRY & BLOOD GA S ORDERABLES Performing Organization Address [facility] Co de Phone Number [facility] [address] [place] [address] * (ABNORMAL) ELECTROLYTES (06/14/2017 5:32 EDT) [facility] Sodium 133(L) 136 - 145 mEq/L 06/14/2017 6:25 EDT [facility] Potassium 3.6 3.5 - 5.0 mEq/L 06/14/2017 6:25 EDT [facility] Chloride 91(L) 96 - 110 mEq/L 06/14/2017 6:25 EDT [facility] CO2 31 22 - 32 mEq/L 06/14/2017 6:25 EDT [facility] Blood specimen (specimen) BLOOD SPECIMEN / Unknown 06/14/2017 5:32 EDT 06/14/2017 5:53 EDT Michael Pratt MD CHEMISTRY & BLOOD GA S ORDERABLES Performing Organization Address City/[facility]/ZIP Co de Phone Number [facility] [address] [place] [address] * (ABNORMAL) HEMAGRAM (06/14/2017 5:32 EDT) Pathologist [facility] WBC 12.41(H) 4.0 - 10.4 K/cmm 06/14/2017 6:00 EDT [facility] RBC 3.64(L) 4.36 - 5.78 M/cmm 06/14/2017 6:00 EDT [facility] Hemoglobin 11.9(L) 13.8 - 17.3 gm/dl 06/14/2017 6:00 T [facility] HCT 33.8(L) 39.5 - 50.2 % 06/14/2017 6:00 [facility] MCV 93 81 - 95 fl 06/14/2017 6:00 T [facility] MCH 32.7 27.6 - 33.0 pg 06/14/2017 6:00 EDT [facility] MCHC 35.2 32.8 - 36.4 gm/dl 06/14/2017 6:00 T [facility] RDW-CV 11.9 <14.2 % 06/14/2017 6:00 T [facility] RDW-SD 40.7 <46.0 fl 06/14/2017 6:00 [facility] PLT 243 141 - 377 K/cmm 06/14/2017 6:00 [facility] MPV 11.7 9.5 - 12.7 fl 06/14/2017 6:00 [facility] Blood specimen (specimen) BLOOD SPECIMEN / Unknown 06/14/2017 5:32 EDT 06/14/2017 5:53 EDT Michael Pratt MD HEMATOLOGY & PF4 ORD ERABLES [facility] [address] [place] [address] * (ABNORMAL) CREATININE (06/14/2017 5:32 EDT) Creatinine 0.60(L) 0.66 - 1.25 mg/dl 06/14/2017 6:25 EDT [facility] GFR, Calculated 105 >60 ml/min/1.7 3m2 06/14/2017 6:25 T [facility] Comment: eGFR calculated using CKD-EPI equation for non Americans. Multiply eGFR by 1.16 for Americans. Blood specimen (specimen) BLOOD SPECIMEN / Unknown 06/14/2017 5:32 EDT 06/14/2017 5:53 EDT Michael Pratt MD CHEMISTRY & BLOOD GA S ORDERABLES Performing Organization Address City/[facility]/ZIP Co de Phone Number [facility] [address] [place] [address] * INPATIENT ADD-ON (06/13/2017 15:00 EDT) Tests to be added PLEASE ADD ON HEMATOCRIT TO PLEURAL FLUID OBTAINED TODAY (06/13). THANK YOU 06/13/2017 14:56 EDT [facility] Number for problems [id number] 06/13/2017 15:05 EDT [facility] Accession number [id number] 06/13/2017 15:15 EDT [facility] Comment:Corrected on 06/13 A T 1515: Previously reported as [id number] TOPOGRAPHY UNKNOWN / Unknown 06/13/2017 15:00 EDT 06/13/2017 15:02 EDT Catherine Walker MD HEMATOLOGY & PF4 ORD ERABLES Performing Organization Address [facility]/ZIP Co de Phone Number [facility] [address] [place] [address] * INPATIENT ADD-ON (06/13/2017 15:00 EDT) Tests to be added TOTAL PROTEIN,LD H 06/13/2017 14:55 EDT [facility] Number for problems [id number] 06/13/2017 15:01 EDT [facility] Accession number [id number] 06/13/2017 15:02 EDT [facility] Comment:Corrected on 06/13 A T 1502: Previously reported as [id number] TOPOGRAPHY UNKNOWN / Unknown 06/13/2017 15:00 EDT 06/13/2017 15:01 EDT Catherine Walker MD HEMATOLOGY & PF4 ORD ERABLES Performing Organization Address City/[facility]/ZIP Co de Phone Number [facility] [address] [place] [address] * CT CHEST (PE) PROTOCOL W CONTRAST [...] sterile technique and under local anesthesia, a 8-German thoracentesis catheter was advanced into the left [...] sterile technique and under local anesthesia, a 8-German thoracentesis catheter was advanced into the left [...] y Fld <3.0 % 06/13/2017 16:01 EDT [facility] PLEURAL FLUID SPECIMEN / Unknown 06/13/2017 8:26 EDT 06/13/2017 8:49 EDT Michael Pratt MD GEN LAB UNIT COLLECT ORDERABLES Performing Organization Address City/[facility]/ZIP Co de Phone Number [facility] [address] [place] [address] * FLUID DIFFERENTIAL (06/13/2017 8:26 EDT) Neutrophils, Fluid 33 % 06/13/2017 12:15 EDT [facility] Lymphocytes, Fluid 50 % 06/13/2017 12:15 T [facility] [place]/Macro, Fluid 12 % 06/13/2017 12:15 T [facility] Mesothelial 5 % 06/13/2017 12:15 T [facility] Fluid Comment Rev'd by Pathologist 06/13/2017 12:15 T [facility] PLEURAL FLUID SPECIMEN / Unknown 06/13/2017 8:26 EDT 06/13/2017 8:49 EDT Michael Pratt MD GEN LAB UNIT COLLECT ORDERABLES Performing Organization Address City/[facility]/ZIP Co de Phone Number [facility] [address] [place] [address] * PH, PLEURAL FLUID (06/13/2017 8:26 EDT) Pleural Fluid pH 7.42 06/14/19 18 9:12 EDT [facility] Comment: Reference range: Pleural fluid Exudate: 7.30-7.45 Transudate: 7.40-7.55 A pleural fluid pH <7.30 is generally associated with a complicated parapneumonic effusion, empyema, connective tissue disease of the pleura or malignant effusion. PLEURAL FLUID SPECIMEN / Unknown 06/13/2017 8:26 EDT 06/13/2017 9:00 EDT Michael Pratt MD GEN LAB UNIT COLLECT ORDERABLES Performing Organization Address City/[facility]/ZIP Co de Phone Number [facility] [address] [place] [address] * BACTERIAL CULTURE/SMEAR, FLUID (06/13/2017 8:26 EDT) Gram Smear Result Polys present 06/13/2017 10:07 EDT [facility] Gram Smear Result No bacteria seen 06/13/2017 10:07 EDT [facility] Result No growth 06/15/2017 7:29 EDT [facility] FOSMIC PLEURAL FLUID SPECIMEN / Unknown 06/13/2017 8:26 EDT 06/13/2017 9:19 EDT Comment:Left Michael Pratt MD MICROBIOLOGY - GENER AL ORDERABLES Performing Organization Address [facility] de Phone Number [facility] [address] [place] [address] * FLUID CELL COUNT (06/13/2017 8:26 EDT) RBC, Fluid 44,000 /cmm 06/13/2017 10:31 EDT [facility] Nucleated Cells 11,202 /cmm 06/13/2017 10:31 EDT [facility] Fluid Comment MODERATELY BLOODY, MODERATELY CLOUDY 06/13/2017 10:31 EDT [facility] Body fluid specimen (specimen) PLEURAL FLUID SPECIMEN / Unknown 06/13/2017 8:26 EDT 06/13/2017 8:49 EDT Michael Pratt MD GEN LAB UNIT COLLECT ORDERABLES Performing Organization Address City/[facility] Co de Phone Number [facility] [address] [place] [address] * TOTAL PROTEIN, FLUID (06/13/2017 8:26 EDT) Protein, Fluid 5.2 g/dl 06/13/2017 10:18 EDT [facility] Comment: Reference Range: Pleural fluid specimen (specimen) Exudate > 3.0 g/dl Pleural fluid specimen (specimen) Transudate <3.0 g/dl Peritoneal fluid sample (specimen) Serum ascites to albumin gradient (SAGG) superior to total protein content in differentiating causes of effusion. Pleural fluid specimen (specimen) [facility] PLEURAL FLUID SPECIMEN / Unknown 06/13/2017 8:26 EDT 06/13/2017 8:51 EDT Michael rPatt MD GEN LAB UNIT COLLECT ORDERABLES Performing Organization Address City/[facility] Co de Phone Number [facility] [address] [place] [address] * LDH, FLUID (06/13/2017 8:26 EDT) LDH, Fluid 654 U/L 06/13/2017 10:18 EDT [facility] Comment: Pleural fluid specimen (specimen) Reference Range: Suggestive of exudate if fluid cholesterol is > 45 mg/dl or fluid LDH is greater than 0.45 times the upper limit of normal serum LDH levels. Peritoneal fluid sample (specimen) No reference range available Pleural fluid specimen (specimen) [facility] PLEURAL FLUID SPECIMEN / Unknown 06/13/2017 8:26 EDT 06/13/2017 8:51 EDT Michael Pratt MD GEN LAB UNIT COLLECT ORDERABLES Performing Organization Address City/[facility]/ZIP Co de Phone Number [facility] [address] [place] [address] * GLUCOSE, FLUID (06/13/2017 8:26 EDT) Glucose, Fluid 88 mg/dl 06/13/2017 10:18 EDT [facility] Comment: Reference Range: Pleural fluid specimen (specimen) Low glucose is accepted as <60 mg/dl or pleural fluid to serum glucose ratio of <0.5. Peritoneal fluid sample (specimen) Low glucose is generally accepted as <50 mg/dl. Pleural fluid specimen (specimen) [facility] PLEURAL FLUID SPECIMEN / Unknown 06/13/2017 8:26 EDT 06/13/2017 8:51 EDT Michael Pratt MD GEN LAB UNIT COLLECT ORDERABLES Performing Organization Address City/[facility] Co de Phone Number [facility] [address] [place] [address] * CREATININE, FLUID (06/13/2017 8:26 EDT) Creatinine, Fluid 0.57 mg/dl 06/13/2017 10:18 EDT [facility] Comment: Reference Range: Pleural fluid specimen (specimen) No reference range available Peritoneal fluid sample (specimen) No reference range available Drain device specimen (specimen) No reference range available Pleural fluid specimen (specimen) [facility] PLEURAL FLUID SPECIMEN / Unknown 06/13/2017 8:26 EDT 06/13/2017 8:51 EDT Michael Pratt MD GEN LAB UNIT COLLECT ORDERABLES Performing Organization Address [facility] Co de Phone Number [facility] [address] [place] [address] * PROTEIN, TOTAL (06/13/2017 6:08 EDT) Total Protein 7.2 6.3 - 8.2 g/dl 06/13/2017 15:23 EDT [facility] BLOOD SPECIMEN / Unknown 06/13/2017 6:08 EDT 06/13/2017 6:38 EDT Michael Pratt MD CHEMISTRY & BLOOD GA S ORDERABLES Performing Organization Address [facility] Co de Phone Number [facility] [address] [place] [address] * LDH (06/13/2017 6:08 EDT) LDH 428 313 - 618 U/L 06/13/2017 15:23 EDT [facility] BLOOD SPECIMEN / Unknown 06/13/2017 6:08 EDT 06/13/2017 6:38 EDT Michael Pratt MD CHEMISTRY & BLOOD GA S ORDERABLES [facility] [address] [place] [address] * (ABNORMAL) MAGNESIUM (06/13/2017 6:08 EDT) Magnesium 1.4(L) 1.7 - 2.8 mg/dl 06/13/2017 7:07 EDT [facility] Blood specimen (specimen) BLOOD SPECIMEN / Unknown 06/13/2017 6:08 EDT 06/13/2017 6:38 EDT Michael Pratt MD CHEMISTRY & BLOOD GA S ORDERABLES Performing Organization Address [facility] Co de Phone Number [facility] [address] [place] [address] * (ABNORMAL) ELECTROLYTES (06/13/2017 6:08 EDT) Sodium 132(L) 136 - 145 mEq/L 06/13/2017 7:07 EDT [facility] Potassium 3.6 3.5 - 5.0 mEq/L 06/13/2017 7:07 T [facility] Chloride 91(L) 96 - 110 mEq/L 06/13/2017 7:07 T [facility] CO2 29 22 - 32 mEq/L 06/13/2017 7:07 EDT [facility] Blood specimen (specimen) BLOOD SPECIMEN / Unknown 06/13/2017 6:08 EDT 06/13/2017 6:38 EDT Michael Pratt MD CHEMISTRY & BLOOD GA S ORDERABLES Performing Organization Address City/[facility]/ZIP Co de Phone Number [facility] [address] [place] [address] * (ABNORMAL) HEMAGRAM (06/13/2017 6:08 EDT) WBC 9.97 4.0 - 10.4 K/cmm 06/13/2017 6:52 [facility] RBC 3.76(L) 4.36 - 5.78 M/cmm 06/13/2017 6:52 [facility] Hemoglobin 12.2(L) 13.8 - 17.3 gm/dl 06/13/2017 6:52 [facility] HCT 34.9(L) 39.5 - 50.2 % 06/13/2017 6:52 [facility] MCV 93 81 - 95 fl 06/13/2017 6:52 [facility] MCH 32.4 27.6 - 33.0 pg 06/13/2017 6:52 [facility] MCHC 35.0 32.8 - 36.4 gm/dl 06/13/2017 6:52 [facility] RDW-CV 11.8 <14.2 % 06/13/2017 6:52 [facility] RDW-SD 40.4 <46.0 fl 06/13/2017 6:52 [facility] PLT 223 141 - 377 K/cmm 06/13/2017 6:52 [facility] MPV 11.9 9.5 - 12.7 fl 06/13/2017 6:52 [facility] Blood specimen (specimen) BLOOD SPECIMEN / Unknown 06/13/2017 6:08 EDT 06/13/2017 6:38 EDT Michael Pratt MD HEMATOLOGY & PF4 ORD ERABLES [facility] [address] [place] [address] * (ABNORMAL) CREATININE (06/13/2017 6:08 EDT) Creatinine 0.58(L) 0.66 - 1.25 mg/dl 06/13/2017 7:07 T [facility] GFR, Calculated 106 >60 ml/min/1.7 3m2 06/13/2017 7:07 EDT [facility] Comment: eGFR calculated using CKD-EPI equation for non Americans. Multiply eGFR by 1.16 for Americans. Blood specimen (specimen) BLOOD SPECIMEN / Unknown 06/13/2017 6:08 EDT 06/13/2017 6:38 EDT Michael Pratt MD CHEMISTRY & BLOOD GA S ORDERABLES Performing Organization Address [facility] de Phone Number [facility] [address] [place] [address] * (ABNORMAL) PROTIME (06/13/2017 6:08 EDT) Pro Time 14.0(H) 10.3 - 13.4 secs 06/13/2017 7:00 EDT [facility] Comment:NOTE NEW REFERENCE Vern FUNG OF APR 03 2017 I.N.R. 1.2(H) 0.9 - 1.1 Ratio 06/13/2017 7:00 EDT [facility] Comment: Moderate Intensity Coumadin INR = 2.0-3.0 Adjustments in anticoagulant therapy dose should be based upon the INR and NOT the Pro Time. Blood specimen (specimen) BLOOD SPECIMEN / Unknown 06/13/2017 6:08 EDT 06/13/2017 6:38 EDT Michael Pratt MD HEMATOLOGY & PF4 ORD ERABLES Performing Organization Address [facility] Co de Phone Number [facility] [address] [place] [address] * BACTERIAL CULTURE, BLOOD (06/12/2017 22:47 EDT) Result No growth 06/17/2017 7:12 EDT [facility] Blood specimen (specimen) BLOOD SPECIMEN / Unknown 06/12/2017 22:47 EDT 06/12/2017 23:20 EDT Comment:Left~Antecubital Denilson Shannon MD MICROBIOLOGY - GENE RAL ORDERABLES Performing Organization Address [facility] de Phone Number [facility] [address] [place] [address] * (ABNORMAL) D-DIMER (06/12/2017 22:40 EDT) D-Dimer 724(H) <230 ng/mL 06/12/2017 23:14 EDT [facility] Comment: CUTOFF VALUE FOR THE EXCLUSION OF DVT and PE: 230 ng/mL D-dimer units Any use of the age-adjusted cutoff value is a post-analytic modification of this FDA-approved test and is considered off-label use of the test result. [facility] laboratory does not have literature to support the validity of an age-adjusted cutoff for our specific assay. Blood specimen (specimen) BLOOD SPECIMEN / Unknown 06/12/2017 22:40 EDT 06/12/2017 22:57 EDT Rahat Aviles MD HEMATOLOGY & PF4 OR DERABLES Performing Organization Address City/[facility]/ZIP Co de Phone Number [facility] [address] [place] [address] * BACTERIAL CULTURE, BLOOD (06/12/2017 22:40 EDT) Result No growth 06/17/2017 7:12 EDT [facility] Blood specimen (specimen) BLOOD SPECIMEN / Unknown 06/12/2017 22:40 EDT 06/12/2017 23:20 EDT Comment:Right~Antecubital Denilson Shannon MD MICROBIOLOGY - GENE RAL ORDERABLES Performing Organization Address City/[facility]/ZIP Co de Phone Number [facility] [address] [place] [address] * INPATIENT ADD-ON (06/12/2017 21:30 EDT) Tests to be added NT PRO BNP 06/12/2017 21:28 EDT [facility] Number for problems Not Given 06/12/2017 21:31 EDT [facility] Accession number [id number] 06/12/2017 21:31 EDT [facility] TOPOGRAPHY UNKNOWN / Unknown 06/12/2017 21:30 EDT 06/12/2017 21:31 EDT Denilson Shannon MD HEMATOLOGY & PF4 OR DERABLES [facility] [address] [place] [address] * CHEST PA AND LATERAL (06/12/2017 20:56 [...] * INPATIENT ADD-ON (06/12/2017 19:20 EDT) Pathologist [facility] Tests to be added HIGH SENSITIVITY CRP 06/12/2017 19:17 EDT [facility] Number for problems [id number] 06/12/2017 19:24 EDT [facility] Accession number [id number] 06/12/2017 19:24 EDT [facility] TOPOGRAPHY UNKNOWN / Unknown 06/12/2017 19:20 EDT 06/12/2017 19:21 EDT Michael Pratt MD HEMATOLOGY & PF4 ORD ERABLES Performing Organization Address [facility] Co de Phone Number [facility] [address] [place] [address] * (ABNORMAL) NT PRO BNP (06/12/2017 18:37 EDT) [facility] NT Pro BNP 1,380(H) <300 pg/ml 06/12/2017 22:19 EDT [facility] Comment: Reference Range: NT-proBNP values [...] BLOOD GA S ORDERABLES Performing Organization Address [facility]/ZIP Co de Phone Number [facility] [address] [place] [address] * HIGH SENSITIVITY C-REACTIVE PROTEIN (CARDIOVASCULAR DISEASE) (06/12/2017 18:37 EDT) [facility] High Sensitivity CRP 83.3 mg/L 06/13/2017 10:08 EDT [facility] Comment: Reference Range: <1.0 mg/L Low risk 1.0-3.0 mg/L Average risk >3.0 mg/L High risk >10.0 mg/L Acute inflammation BLOOD SPECIMEN / Unknown 06/12/2017 18:37 EDT 06/12/2017 18:58 EDT Catherine Walker MD CHEMISTRY & BLOOD GA S ORDERABLES Performing Organization Address City/[facility]/ZIP Co de Phone Number [facility] [address] [place] [address] * TROPONIN I (06/12/2017 18:37 EDT) Troponin I (ng/mL) <0.034 <0.034 ng/ml 06/12/2017 19:49 EDT [facility] Blood specimen (specimen) BLOOD SPECIMEN / Unknown 06/12/2017 18:37 EDT 06/12/2017 18:58 EDT Catherine Walker MD CHEMISTRY & BLOOD GA S ORDERABLES Performing Organization Address [facility] de Phone Number [facility] [address] [place] [address] * (ABNORMAL) HEMAGRAM (06/12/2017 18:37 EDT) WBC 17.10(H) 4.0 - 10.4 K/cmm 06/12/2017 19:04 [facility] RBC 3.70(L) 4.36 - 5.78 M/cmm 06/12/2017 19:04 [facility] Hemoglobin 12.2(L) 13.8 - 17.3 gm/dl 06/12/2017 19:04 [facility] HCT 34.1(L) 39.5 - 50.2 % 06/12/2017 19:04 [facility] MCV 92 81 - 95 fl 06/12/2017 19:04 [facility] MCH 33.0 27.6 - 33.0 pg 06/12/2017 19:04 [facility] MCHC 35.8 32.8 - 36.4 gm/dl 06/12/2017 19:04 [facility] RDW-CV 11.6 <14.2 % 06/12/2017 19:04 EDT [facility] RDW-SD 39.4 <46.0 fl 06/12/2017 19:04 EDT [facility] PLT 206 141 - 377 K/cmm 06/12/2017 19:04 T [facility] MPV 12.3 9.5 - 12.7 fl 06/12/2017 19:04 EDT [facility] Blood specimen (specimen) BLOOD SPECIMEN / Unknown 06/12/2017 18:37 EDT 06/12/2017 18:58 EDT Catherine Walker MD HEMATOLOGY & PF4 ORD ERABLES Performing Organization Address City/[facility]/ZIP Co de Phone Number [facility] [address] [place] [address] * BUN (06/12/2017 18:37 EDT) BUN 10 10 - 26 mg/dl 06/12/2017 19:34 EDT [facility] Blood specimen (specimen) BLOOD SPECIMEN / Unknown 06/12/2017 18:37 EDT 06/12/2017 18:58 EDT Catherine Walker MD CHEMISTRY & BLOOD GA S ORDERABLES Performing Organization Address [facility] Co de Phone Number [facility] [address] [place] [address] * (ABNORMAL) ELECTROLYTES (06/12/2017 18:37 EDT) Sodium 129(L) 136 - 145 mEq/L 06/12/2017 19:34 EDT [facility] Potassium 3.4(L) 3.5 - 5.0 mEq/L 06/12/2017 19:34 T [facility] Chloride 91(L) 96 - 110 mEq/L 06/12/2017 19:34 EDT [facility] CO2 27 22 - 32 mEq/L 06/12/2017 19:34 EDT [facility] Blood specimen (specimen) BLOOD SPECIMEN / Unknown 06/12/2017 18:37 EDT 06/12/2017 18:58 EDT Catherine Walker MD CHEMISTRY & BLOOD GA S ORDERABLES Performing Organization Address [facility] de Phone Number [facility] [address] [place] [address] * (ABNORMAL) CREATININE (06/12/2017 18:37 EDT) Creatinine 0.54(L) 0.66 - 1.25 mg/dl 06/12/2017 19:34 EDT [facility] GFR, Calculated 109 >60 ml/min/1.7 3m2 06/12/2017 19:34 EDT [facility] Comment: eGFR calculated using CKD-EPI equation for non Americans. Multiply eGFR by 1.16 for Americans. Blood specimen (specimen) BLOOD SPECIMEN / Unknown 06/12/2017 18:37 EDT 06/12/2017 18:58 EDT Catherine Walker MD CHEMISTRY & BLOOD GA S ORDERABLES Performing Organization Address [facility] de Phone Number [facility] [address] [place] [address] * EKG 12-LEAD (06/12/2017 18:27 EDT) 06/12/2017 18:2 7 EDT Narrative [facility] EKG - 06/29/2017 15:57 EDT ? [facility] ? Test Date: ?2017-06-12 Pat Name: ? DAVID FARFAN ?Department: ?? Subha Chao ? Room: ? ME505 Gender: ? Male ? 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 [id number] : ?1950 ? Requested By: GISELA Dunn Order Number: [id number] ? Reading MD: ?? SENG PERSON SA MD ? Measurements Intervals ?[place] ? Rate: ? 120 ?P: ?165 [place]: ? 235 ?QRS: ?-22 QRSD: ? 176 [...] Seng Brody Sa, MD - 06/29/2017 [facility] Test Date: 2017-06-12 Pat Name: DAVID FARFAN Department: Mascorro Zhanna Room: [facility] Gender: Male Software Firmware Engineer: [id number] : 1950 Requested By: GISELA Dunn Order Number: [id number] Reading MD: SENG ROBLEDO Measurements Intervals [place] Rate: 120 P: 165 [place]: 235 QRS: -22 QRSD: 176 T: 171 [...] Catherine Walker MD CARDIAC ECG ORDERABL ES [facility] EKG documented in this encounter Visit Diagnoses [...] 1 06/12/2017 MEASURE WEIGHT 1 06/12/2017 NOTIFY BLAST FURNACE SUPERVISOR 1 06/12/2017 [facility]TE PHARMACOLOGIC PROPHYLAXI S CURRENTLY [...] 06/01 documented in this encounter Care Teams Claims Auditor Relationship Specialty Start Date End Date Katia Stone, BELLAC [address] [place] [phone] PCP - General 05/02/17 documented as of this encounter
--- OUTSIDE RECORDS SUMMARY | 2023-10-13 22:27 | XMS_ITS | Encounter Summary ---
Author Organization [facility] Address [address] [place] [address] Care Team Providers Care Map Maker Name Role Phone Katia Stone PA-C Primary Care Provider +1- [phone] Encounter Details Date Type Department Care Team (Late st Contact Info) Description 05/20/2017 Results Only Imaging [facility] [phone] Unknown, Provider, Social History Tobacco Use Types [...] filedocumented in this encounter Care Teams Map Maker Relationship Specialty Start Date End Date Katia Stone PA-C [address] [place] [phone] PCP - General 05/02/17 documented as of this encounter
--- OUTSIDE RECORDS SUMMARY | 2023-10-13 22:27 | XMS_ITS | Encounter Summary ---
Author Organization [facility] Address [address] [place] [address] Care Team Providers Care Assistant Property Manager Name Role Phone Katia Stone PA-C Primary Care Provider +1- [phone] Reason for Visit * Reason Onset Date Comments Update 06/12/2017 on admission to [facility] Encounter Details Date Type Department Care Team (Late st Contact Info) Description 06/12/2017 Telephone [facility]iology - [address] [place] [address] Tony Rosenberg MD [address] [place] [address] [address] [place] [address] Update (on admission to [facility]) Social History Tobacco Use Types Packs/Day Years [...] EDT The pt has been admitted to [facility] * Telephone Encounter - Belinda Falk RN [...] Reason for Call: Update (on admission to [facility]) Summary/Symptoms: Yessica would like to speak to the nurse regarding this patient being admitted to [facility] today at Dr. Guevara request Andra Gonzáles 06/12/2017 9:24 documented in this encounter Plan of Treatment Not on file documented as of this encounter Visit Diagnoses Not on filedocumented in this encounter Care Teams Assistant Property Manager Relationship Specialty Start Date End Date Katia Stone, MINGO [address] [place] [phone] PCP - General 05/02/17 documented as of this encounter
--- OUTSIDE RECORDS SUMMARY | 2023-10-13 22:27 | XMS_ITS | Encounter Summary ---
Author Organization [facility] Address [address] [place] [address] Care Team Providers Care Garage Door Technician Name Role Phone Katia Stone PA-C Primary Care Provider [phone] Encounter Details Date Type Department Care Team (Late st Contact Info) Description 05/20/2017 Results Only Imaging [facility]- PRISM [phone] Unknown, Provider, Social History Tobacco Use Types [...] on filedocumented in this encounter Care Teams Garage Door Technician Relationship Specialty Start Date End Date Katia Stone PA-C [address] [place] [id number] PCP - General 05/02/17 documented as of this encounter
--- OUTSIDE RECORDS SUMMARY | 2023-10-13 22:28 | XMS_ITS | Encounter Summary ---
Author Organization [facility] Address [facility] [place] [address] Care Team Providers Care Product Specialist Name Role Phone Katia Stone Primary Care Provider Encounter Details Date Type Department Care Team (Latest Contact Info) Description 08/14/2021 - 08/14/2021 11:59 PM EDT Hospital Encounter Non-[place]vasive [place] [phone] Dylan Story MD [facility] ELECT[place] [address] CHB (complete heart block) Discharge Disposition: Home [...] AM EDT Hospital Encounter Non-Invasive [place] [phone] Arrived documented as of this encounter Procedures [...] complete documented in this encounter Care Teams Product Specialist Relationship Specialty Start Date End Date Katia Stone PA [address] [place] [place] [address] PCP - General General Internal Medicine 11/10/18 documented as of this encounter
--- OUTSIDE RECORDS SUMMARY | 2023-10-13 22:28 | XMS_ITS | Encounter Summary ---
Author Organization [facility] [place] [address] Care Team Providers Care [employer] Member Name Role Phone Katia Stone Primary Care Provider [phone] Encounter Details Date Type Department Care Team (Late st Contact Info) Description 07/09/2021 1:35 PM EDT Ancillary Procedure [place] [phone] Nolan Beth MD [facility] [place] [address] Social History Tobacco Use Types Packs/Day Years [...] AM EDT Hospital Encounter Non-Invasive [place] [phone] Arrived documented as of this encounter Procedures Procedure Name Priority Date/Time Associated Diagnosis Comments FILM LIBRARY STORAGE ONLY CT CHEST ABDOMEN PELVIS Routine 07/09/2021 1:33 PM EDT documented in this encounter Results * Film Library- Storage Only CT Chest Abdomen Pelvis (07/09/2021 1:33 PM EDT) Narrative [facility] - 07/09/2021 1:33 PM EDT This exam is auto-finalizing. It's purpose is for storage only. Nolan Beth MD IMG FILM LIBRARY OR DERABLES [facility] [place], [place] documented in this encounter Visit Diagnoses Not on filedocumented in this encounter Care Teams [employer] Member Relationship Specialty Start Date End Date Katia Stone PA [address] [facility] [place] [phone] PCP - General General Internal Medicine 11/10/18 documented as of this encounter
--- OUTSIDE RECORDS SUMMARY | 2023-10-13 22:28 | XMS_ITS | Encounter Summary ---
[place] [address] Care Team Providers Care Palm Gatherer Name Role Phone Katia Stone Primary Care Provider [phone] Encounter Details Date Type Department Care Team (Latest Contact Info) Description 05/15/2022 10:00 AM EDT - 05/15/2022 11:59 PM EDT Hospital Encounter [place] [phone] Discharge Disposition: Home Social History Tobacco Use [...] AM EDT Hospital Encounter Non[place] [phone] Arrived documented as of this encounter Visit Diagnoses Not on filedocumented in this encounter Care Teams Palm Gatherer Relationship Specialty Start Date End Date Katia Stone PA [address] [facility] [place] [facility] [place] [phone] PCP - General General Internal Medicine 11/10/18 documented as of this encounter
--- OUTSIDE RECORDS SUMMARY | 2023-10-13 22:28 | XMS_ITS | Encounter Summary ---
Author Organization [facility] [place] [address] Care Team Providers Care Membership Manager Name Role Phone Katia Stone Primary Care Provider Reason for Referral * Diagnostic Test (Routine) - Closed Specialty Diagnoses / Procedures Referred By Contac t Referred To Contact Radiology Diagnoses Abdominal visceral abscess Procedures CT Guided Drain Peritoneal Virginia Price [address] [place] [address] [facility] [place] [address] Referral ID Status Reason Start Date Expiration Date V isits Requested Visits Authorized [id number] Closed Specialty Service Requested 07/09/2021 01/09/2023 1 1 Reason for Visit * Diagnostic Test (Routine) - Closed Specialty Diagnoses / Procedures Referred By Contac t Referred To Contact Radiology Diagnoses Abdominal visceral abscess Procedures CT Guided Drain Peritoneal Virginia Price [address] [place] [address] [facility] [place] [address] Referral ID Status Reason Start Date Expiration Date V isits Requested Visits Authorized [id number] Closed Specialty Service Requested 07/09/2021 01/09/2023 1 1 Encounter Details Date Type Department Care Team (Latest Contact Info) Description 07/10/2021 9:19 AM EDT - 07/10/2021 11:59 PM EDT Hospital [place] [address] Virginia Price, DO [address] [place] [address] Abdominal visceral abscess (Primary Dx) Discharge Disposition: [...] is during regular office hours, please call [phone]. If it is after regular office hours, or on weekends or holidays, please call [phone] and ask to speak to the Mill Labor Supervisor transitions rn care coordinator for Interventional Radiology. XX You have received [...] of : 1950 AGE: 70 y.o. Address: [place] [address] (home) Mobile: No relevant phone numbers on file. Referring Provider: Virginia Price REASON FOR VISIT: Order Questions Answers Where will study be performed? [facility] Radiology [120] Is the patient on anticoagulant [...] Questions Answers Where will study be performed? [facility] Radiology [120] Is the patient on anticoagulant [...] Questions Answers Where will study be performed? [facility] Radiology [120] Is the patient on anticoagulant [...] culture Complications: No immediate Plan/Disposition: Return to [facility] GB fossa drain to bulb [...] AM EDT Hospital Encounter Non-[place]vasive [place] [phone] Arrived documented as of this encounter Procedures [...] EDT 1. ??Percutaneous placement of a 10 Kenyan drainage catheter into gallbladder fossa abscess/biloma, yielding 120 mL of cloudy brown fluid. 2. ??Left-sided 10 Kenyan chest tube placement, yielding 30 mL of cloudy brown. Plan: 1. ??To IR recovery then transfer back to [facility]. 2. ??Awaiting return call from [...] who have questions please contact the health hourly caregiver that requested your imaging first. ? Narrative [...] IMPRESSION 1. Percutaneous placement of a 10 Kenyan drainage catheter intogallbladder fossa abscess/biloma, yielding 120 mL of cloudy brown fluid. 2. Left-sided 10 Kenyan chest tube placement, yielding 30 mL of cloudybrown. Plan: 1. To IR recovery then transfer back to [facility]. 2. Awaiting return call from [...] patients who have questions please contactthe health hourly caregiver that requested your imaging first. Virginia Price DO IMG CT ORDERABLES * CT Guided Drain Chest Tube/Pleural Drain (07/10/2021 12:19 PM EDT) Anatomical Region Laterality Modality Computed Tomogra phy Impressions 07/11/2021 10:21 AM EDT 1. ??Percutaneous placement of a 10 Kenyan drainage catheter into gallbladder fossa abscess/biloma, yielding 120 mL of cloudy brown fluid. 2. ??Left-sided 10 Kenyan chest tube placement, yielding 30 mL of cloudy brown. Plan: 1. ??To IR recovery then transfer back to [facility]. 2. ??Awaiting return call from [...] who have questions please contact the health hourly caregiver that requested your imaging first. ? Narrative [...] IMPRESSION 1. Percutaneous placement of a 10 Kenyan drainage catheter intogallbladder fossa abscess/biloma, yielding 120 mL of cloudy brown fluid. 2. Left-sided 10 Kenyan chest tube placement, yielding 30 mL of cloudybrown. Plan: 1. To recovery then transfer back to [facility]. 2. Awaiting return call from [...] patients who have questions please contactthe health hourly caregiver that requested your imaging first. Virginia Price DO IMG CT ORDERABLES * Anaerobic Culture (07/10/2021 11:45 AM EDT) Anaerobic Culture No anaerobic organisms isolated [facility] Fluid 07/10/2021 11:4 5 AM EDT 07/10/2021 12:24 PM EDT Comment:Left chest tube plac ement. Narrative Resulting Agency Comment Spec In Lab Vick Boss MD MICROBIOLOGY - GEN ERAL ORDERABLES Performing Organization Address City/[facility]/ZIP Co de Phone Number [facility] [place] [address] * Body Fluid Culture, Aerobic (07/10/2021 11:45 AM EDT) Body Fluid Culture No growth [facility] Gram Stain Cytocentrifuge Gram Stain performed No Neutrophils seen. No microorganisms seen. [facility] Fluid 07/10/2021 11:4 5 AM EDT 07/10/2021 12:24 PM EDT Comment:Left chest tube plac ement. Narrative Resulting Agency Comment Spec In Lab Vick Boss MD MICROBIOLOGY - GEN ERAL ORDERABLES Performing Organization Address City/[facility]/ZIP Co de Phone Number [facility] [place] [address] * Anaerobic Culture (07/10/2021 11:20 AM EDT) Anaerobic Culture No anaerobic organisms isolated [facility] Abdominal Fluid 07/10/2021 1 1:20 AM EDT 07/10/2021 12:25 PM EDT Comment:70 y.o. male with le ukocytosis and collection on CT following cholecystectomy presenting to Interventional Radiology for drainage Narrative Resulting Agency Comment Spec In Lab Vick Boss MD MICROBIOLOGY - GEN ERAL ORDERABLES [facility] [place] [address] * (ABNORMAL) Body Fluid Culture, Aerobic (07/10/2021 11:20 AM EDT) Body Fluid Culture Few Escherichia coli(A) [facility] Gram Stain Cytocentrifuge Gram Stain performed Neutrophils seen Few Gram Negative Rods (A) [facility] Organism Escherichia coli(A) [facility] Abdominal Fluid 07/10/2021 1 1:20 AM [...] Boss MD MICROBIOLOGY - GEN ERAL ORDERABLES [facility] [place] [address] documented in this encounter Visit Diagnoses Diagnosis [...] mg documented in this encounter Care Teams Membership Manager Relationship Specialty Start Date End Date Katia Stone PA [address] [place] [phone] PCP - General General Internal Medicine 11/10/18 documented as of this encounter
--- OUTSIDE RECORDS SUMMARY | 2023-10-13 22:28 | XMS_ITS | Encounter Summary ---
Author Organization [facility] Address [address] [place] [address] Care Team Providers Care Financial Reporting Director Name Role Phone None, Provider Primary Care Provider Katia Wilks PA-C Primary Care Provider [phone] Reason for Referral * (Routine) - Receiving Office to Obtain Authorization Specialty Diagnoses / Procedures Referred By Jael ho Referred To Contact Coleen Yañez NP [address] [place] [phone] Referral ID Status Reason Start Date Expiration Date Visits Requested Visits Authorized [id number] Receiving Office to Obtain Authorization Specialty Services [...] ho Referred To Contact Coleen Yañez NP [address] [place] [phone] Referral ID Status Reason Start Date Expiration Date Visits Requested Visits Authorized [id number] Receiving Office to Obtain Authorization Specialty Services Required 05/02/2017 1 1 Comments You must contact us if we have not contacted you or you have missed your scheduled appointment. If you have any nursing questions, please don't hesitate to call the Cardiac Arrhythmia Service at [facility] at or , extension [phone]. For any scheduling of appointments, please call [phone] or , extension [phone]. . * (Routine) - Receiving Office to Obtain Authorization Specialty Diagnoses / Procedures Referred By Contac t Referred To Contact Coleen Yañez NP [address] [phone] Referral ID Status Reason Start Date Expiration Date Visits Requested Visits Authorized [id number] Receiving Office to Obtain Authorization Specialty Services Required 05/02/2017 1 1 Comments Appointment on May 13, 2017 at 9 am for an incision site check with the nurse in the device clinic at [facility]. Phone [phone]. [facility] is located at [address] [place] [address] * (Routine) - Receiving Office to Obtain Authorization Specialty Diagnoses / Procedures Referred By Contac t Referred To Contact Coleen Yañez NP [address] [place] [phone] Referral ID Status Reason Start Date Expiration Date Visits Requested Visits Authorized [id number] Receiving Office to Obtain Authorization Specialty Services [...] [facility] [address] [place] -Clinics are also held in [facility], and [place], [place] and [facility]. If you live in those areas, we will make arrangements for follow-up appointments in one of those clinics.. Reason for Visit * Reason Comments Bradycardia Pt transferred from [place] with new complete heart block. VSS on arrival. CC DOBBS. Encounter Details Date Type Department Care Team (Late st Contact Info) Description 04/30/2017 17:08 EST - 05/04/2017 18:10 EST Hospital Encounter [facility] Cardiac/Telemetry Unit [address] [place] [id number] Bridget Fields MD [address] [place] [address] [phone] Kenneth Hendrickson MD [address] [place] [phone] Houston Corey MD [address] [place] [address] [phone] Heart block AV third degree (CMS-HCC) (HCC-CMS) [...] Principal/Final Diagnosis: Heart block AV third degree ([facility]) Additional Problems Managed in the Hospital Active Hospital Problems Diagnosis Date Noted ??? *Heart block AV third degree ([facility]) 04/30/2017 ??? Hypertensive urgency 05/01/2017 ??? Acute on chronic diastolic congestive heart failure ([facility]) 05/01/2017 Resolved Hospital Problems Diagnosis Date Noted Date Resolved No resolved problems to display. Principal Procedure: PPM 05/02/17 Secondary Procedures: none Hospital Course: David Farfan is a 66 y.o. male with no known PMH transferred from [facility] on 04/30/17 for complete heart block. 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 He complianed of 2-3 months of SOB which worsened 2-3 weeks prior to admission and reached critical point 2-3 days prior to admission when he had symptoms at rest with 3 pillow orthopnea and mild increased LE swelling prompting presentation to [facility]. On arrival to ED he was afebrile, HR 58, BP 190/103 withnegative labs. ECHO showed EF 65% with moderate concentric LVH, mild LA dilation and mild AST/TR. His HR dropped to the 30s prompting transfer to [facility]. On arrival here patient was asymptomatic with [...] Post Hospital Visit with Caitie Atwood NP [facility] Cardiology - [facility] (--) [address] [place] [address] [place] [address] Follow-up appointments and procedures Pacemaker check Your [...] is located at [address] in [place] -Clinics are also held in [facility], and [facility]. If you live in those areas, [...] the nurse in the device clinic at [facility]. Phone [phone]. [facility] is located at [address] [place] [address] Authorizing Provider: Coleen Yañez NP ~Please note: You must contact us if we have not contacted you or you have missed your scheduled appointment. If you have any nursing questions, please don't hesitate to call the Cardiac Arrhythmia Service at [facility] at or , extension [phone]. For any scheduling of appointments, please call [phone] or , extension [phone]. . Authorizing Provider: Coleen Yañez NP Additional Information: Appointment on May 13, 2017 at 9 am for an incision site check with the nurse in the device clinic at the [facility]. . [facility] is located at [address] [place] [address] . You have an appointment with Katia Mccallum PA-C at [facility] on 05/29/2017 at1:00 pm. If you have questions or need to reschedule your appointment, please call [phone]. Please arrive 15 minutes early to complete any necessary. Bring a copy of this AVS Summary with you. Cardiology follow up on June 16, 2017 at 2:[address] Torres at the [facility]. [facility] is located at [address] [place] [address]. Pacemaker device check on August 05, 2017 at 10 am at the [facility]. [facility] is located at [address] [place] [address]. Discharge Handoff Communication I called Katia Mccallum's [...] nurse in the device clinic at the [facility]. . [facility] is located at [address] [place] [address] . You have an appointment with Katia Mccallum PA-C at [facility] on 05/29/2017 at1:00 pm. If you have questions or need to reschedule your appointment, please call [phone]. Please arrive 15 minutes early to complete any necessary. Bring a copy of this AVS Summary with you. Cardiology follow up on June 16, 2017 at 2:[address] Torres at the [facility]. [facility] is located at [address] [place] [address]. Pacemaker device check on August 05, 2017 at 10 am at the [facility]. [facility] is located at [address] [place] [address]. * Discharge Instr - Other Orders* Melida [...] and ask to be connected with a hospital social worker * Attachments The following attachments cannot be sent through Care Everywhere. * HEART FAILURE: AVOIDING TRIGGERS (BELGIAN) documented in this encounter Medications at Time [...] - 05/04/2017 1500 EST I spoke with pullman conductor CM regarding patient's lack of electricity at his home. She recommended I contact patient's PCP, [facility] for further assistance, but that no other action could be made on Friday. Was unable to leave message for their office today and efforts to contact them on05/02 were met with unreturned messages. I have instructed patient to call their office on Friday to be connected to hospital social worker. Amelia Partida DO Internal Medicine Resident PGY-3 [...] pick him up at [place]. AMEENA TEIXEIRA carpentry instructor #[id number] * Amelia Partida MD - 05/04/2017 1204 [...] known PMH admitted in transfer 04/30/17 from [facility] for asymptomatic complete heart block and [...] this morning. He reports he uses the [facility] in [place]. Review of Systems Pertinent items are noted [...] known PMH admitted in transfer 04/30/17 from [facility] for asymptomatic complete heart block and [...] been connected with Katia Mccallum PA-C for [facility] primary care on 05/29 at 1pm Radha Lowery MD Internal Medicine PGY-2 Pager #[phone] 05/03/2017 13:15 Associated attestation - Houston Corey MD - 05/05/2017 1043 EST Attestation statement: I saw and examined the patient with the resident/fellow. I agree with the findings and plan of care documented in the resident's/fellow's note. Patient seen on 05/02/17 * Desi Villatoro RN - 05/02/2017 1000 EST 05/02: Patient has an appointment with Katia Mccallum PA-C at [facility] on 05/29/2017 at 1:00 to establish care. [...] known PMH admitted in transfer 04/30/17 from [facility] for asymptomatic complete heart block and [...] been connected with Katia Mccallum PA-C for [facility] primary care on 05/29 at 1pm Patient [...] FOR ADMISSION: Heart block AV third degree ([facility]) Patient understands reason for admission: PATIENT CONTACT INFO VERIFIED: Yes (Eva Rudolph [phone]) PATIENT ADDRESS VERIFIED: Yes LIVING ARRANGEMENTS AND ACCESSIBILITY ISSUES: Living Arrangements: Alone Levels: 1 Stairs to enter: 2 Handicap access: None Bathroom located on bedroom level?: Yes What in home social supports are available to the patient? Friends / neighbors. Patient lives alonein a mobile home in [place]. He has no immediate family and depends [...] For Finances: No TRANSPORTATION: Transportation: Family CULTURAL, ALEVISM and/or LANGUAGE factors affecting health [...] PCP Verified: Yes (Patient has gone to [facility] in the past to see Dr. Garica who has since retired.) Specialists: None Type of Home Health Services: None DME Provider: None Pharmacy: [facility] - [address] - [place], [place] - [address] [facility] [phone] Home Health: None Other: POST HOSPITAL TRANSITION PLAN: Case management will continue to follow through transition to discharge. Anticipate discharge to home when medically stable. No needs are identified at this time. Patient said he has a friend who can provide transportation home. Ivelisse Rueda RN Case Manager #[id number] * Reba Marie, [facility] - 05/01/2017 1111 EST Transitions of Care - Pharmacy Admission Medication Reconciliation David Farfan is a 66 y.o. male admitted on 04/30/2017 for Heart block AV third degree ([facility]) Pharmacist Interventions/Recommendations: 1. Per patient report, the only medication he was taking prior to admission was ibuprofen 400mg daily for knee pain. Counseled patient to stop taking ibuprofen/NSAIDs as they are harmful to the heartand raise blood pressure-->recommended using acetaminophen for pain instead. 2. Confirmed patient would like to use [facility] in [place], [place] at discharge> please send all discharge prescriptions here. 3. Paged team with findings. Medication History Obtained from: Patient (Self) Medication reconciliation was performed. Discrepancies are noted in BOLD. Clarifications are noted in RED. Medications No prescriptions prior to admission. Additional Prior to Admission [id number]-[id number] Products as noted by Patient/Family: Ibuprofen 400mg daily for knee pain Preferred Pharmacy: [facility] - [place], [place] Barriers to Learning: None apparent Barriers to Obtaining Medications: None apparent Barriers to Taking Medications: None apparent Please feel free to contact me or the Transitions of Care Pharmacy Team with questions or concerns. Thank you Reba Marie, PharmD, [facility] [phone] Pager: [phone] * Houston Corey MD - 05/01/2017 0729 [...] known PMH admitted in transfer 04/30/17 from [facility] for asymptomatic complete heart block and [...] H&P Admit Date: 04/30/2017 PCP: Provider None Lawn Service Worker: none CC: complete heart block HPI: David Farfan is a 66 y.o. male with no known PMH who presents in transfer from [place] for complete heart block. Briefly, patient last saw a doctor approximately 12 years ago after he was admitted for DC rule outin [place]. He reports having a stress at that time though does not recall being told it was abnormal and was not discharged on any medications. He saw a hydroelectric systems technician once in follow-up and has not [...] present to the ED. On arrival to [facility], patient was afebrile HR 58, RR [...] ASA 324 mg prior to transfer to [facility]. On arrival here, he was alert and [...] remote stress test 12 years ago in [place] Review of Systems A 10 point review of systems was discussed and is negative aside from what is noted in HPI. PMH: none PSH: benign tumor removal R forearm, L knee arthroscopy Family History: no history of early CAD/ DC or heart block Social History: Lifetime non-smoker, currently chews tobacco (1 can lasts 2-3 days). care home moderate EtOH intake 2-4 drinks/ day, quit over MEGAN with a friend. 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 He is currently [...] presents with ??? Bradycardia Pt [place] with new complete heart block. VSS on arrival. CC DOBBS. HPI HPI Comments: I, Maite Schmitt, am scribing for Kenneth Hendrickson MD while he/she is personallyperforming the service. Maite Schimtt 04/30/2017 17:19 David Farfan is a 66 y.o. male with a history of heart block AV third degree who presents to the ED with bradycardia. The patient was transferred from [place] with complaints of dyspnea on exertion and [...] ER after EKG, whom referred him to [facility] for pacemaker placement. Denies CP, vomiting, [...] ED with bradycardia.The patient was transferred from [place] with complaints of dyspnea on exertion and [...] W/ CARDS ACCEPTING. NOTE TAKEN DR HENDRICKSON ([facility] documented in this encounter Miscellaneous Notes * [...] AVS received. Pt left with son and opakizvd-ie-bto via wheelchair. BP 115/79 (BP Cuff Location: [...] 05/03/2017 15:19 * Plan of Care - oDn Alvarado RN - 05/02/2017 7325 EST Problem: Daily Care Plan Goals Goal: [...] Care - Meet Matias RN - 05/02/2017 3857 EST Problem: Daily Care Plan Goals Goal: [...] tele D: Patient arrived to [place] [address] at 1900. Vital signs noted, BP 180s/80s. [...] EST) 05/09/2017 13:5 1 EST Scan 2 Drilling Field Professional PROCEDURE/MINOR VELMA GICAL ORDERABLES * ECG REPORT - SCANNED (05/08/2017 8:27 EST) 05/08/2017 8:27 EST Scan 2 Drilling Field Professional PROCEDURE/MINOR VELMA GICAL ORDERABLES * IMPLANT RECORD - SCANNED (05/08/2017 8:14 EST) 05/08/2017 8:14 EST Scan 2 Drilling Field Professional PROCEDURE/MINOR VELMA GICAL ORDERABLES * ECG REPORT - SCANNED (05/08/2017 8:14 EST) 05/08/2017 8:14 EST Scan 2 Drilling Field Professional PROCEDURE/MINOR VELMA GICAL ORDERABLES * ECG REPORT - SCANNED (05/08/2017 8:14 EST) 05/08/2017 8:14 EST Scan 2 Drilling Field Professional PROCEDURE/MINOR VELMA GICAL ORDERABLES * IMPLANT RECORD - SCANNED (05/08/2017 8:14 EST) 05/08/2017 8:14 EST Scan 2 Drilling Field Professional PROCEDURE/MINOR VELMA GICAL ORDERABLES * (ABNORMAL) GLUCOSE, GLUCOMETER (05/04/2017 7:41 EST) Glucose, Fingerstick 104(H) 70 - 100 mg/dl 05/04/2017 7:42 EST [facility] Speech Pathology Teacher ID [id number] 05/04/2017 7:42 EST [facility] Comment:Test Performed by Nu rsing Services BLOOD SPECIMEN / Unknown 05/04/2017 7:41 EST 05/04/2017 7:42 EST Housotn Corey MD CHEMISTRY & BLOO D GAS ORDERABLES Performing Organization Address City/[facility]/ZIP Co de Phone Number [facility] [address] [place] [address] * CREATININE (05/03/2017 5:42 EST) Creatinine 0.67 0.66 - 1.25 mg/dl 05/03/2017 6:56 EST [facility] GFR, Calculated 100 >60 ml/min/1.7 3m2 05/03/2017 6:56 EST [facility] Comment: eGFR calculated using CKD-EPI equation for non Americans. Multiply eGFR by 1.16 for Americans. Blood specimen (specimen) BLOOD SPECIMEN / Unknown 05/03/2017 5:42 EST 05/03/2017 6:20 EST Houston Corey MD CHEMISTRY & BLOO D GAS ORDERABLES Performing Organization Address [facility]/ZIP Co de Phone Number [facility] [address] [place] [address] * (ABNORMAL) BUN (05/03/2017 5:42 EST) BUN 8(L) 10 - 26 mg/dl 05/03/2017 6:56 EST [facility] Blood specimen (specimen) BLOOD SPECIMEN / Unknown 05/03/2017 5:42 EST 05/03/2017 6:20 EST Houston Corey MD CHEMISTRY & BLOO D GAS ORDERABLES Performing Organization Address [facility] Co de Phone Number [facility] [address] [place] [address] * (ABNORMAL) ELECTROLYTES (05/03/2017 5:42 EST) Sodium 134(L) 136 - 145 mEq/L 05/03/2017 6:56 EST [facility] Potassium 4.2 3.5 - 5.0 mEq/L 05/03/2017 6:56 [facility] Chloride 99 96 - 110 mEq/L 05/03/2017 6:56 [facility] CO2 26 22 - 32 mEq/L 05/03/2017 6:56 [facility] Blood specimen (specimen) BLOOD SPECIMEN / Unknown 05/03/2017 5:42 EST 05/03/2017 6:20 EST Houston Corey MD CHEMISTRY & BLOO D GAS ORDERABLES [facility] [address] [place] [address] * (ABNORMAL) HEMAGRAM (05/03/2017 5:42 EST) WBC 7.95 4.0 - 10.4 K/cmm 05/03/2017 6:46 [facility] RBC 3.97(L) 4.36 - 5.78 M/cmm 05/03/2017 6:46 [facility] Hemoglobin 13.3(L) 13.8 - 17.3 gm/dl 05/03/2017 6:46 [facility] HCT 38.4(L) 39.5 - 50.2 % 05/03/2017 6:46 [facility] MCV 97(H) 81 - 95 fl 05/03/2017 6:46 [facility] MCH 33.5(H) 27.6 - 33.0 pg 05/03/2017 6:46 [facility] MCHC 34.6 32.8 - 36.4 gm/dl 05/03/2017 6:46 [facility] RDW-CV 11.9 <14.2 % 05/03/2017 6:46 [facility] RDW-SD 42.4 <46.0 fl 05/03/2017 6:46 [facility] PLT 196 141 - 377 K/cmm 05/03/2017 6:46 [facility] MPV 12.6 9.5 - 12.7 fl 05/03/2017 6:46 [facility] Blood specimen (specimen) BLOOD SPECIMEN / Unknown 05/03/2017 5:42 EST 05/03/2017 6:20 EST Houston Corey MD HEMATOLOGY & PF4 ORDERABLES [facility] [address] [place] [address] * EKG 12-LEAD (05/03/2017 4:23 EST) 05/03/2017 4:23 EST Narrative [facility] - 05/09/2017 13:47 EST ? [facility] ? Test Date: ?2017-05-03 Pat Name: ? DAVID FARFAN ?Department: ?? [facility] ? Room: ? MW514 Gender: ? 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 [id number] : ?1950 ? Requested By: MARIO ALBERTO SCANLON Order Number: [id number] ? Martha OAKES: ?? SENG PERSON SA, MD ? Measurements Intervals ?[place] ? Rate: ? 75 ? P: ?51 TN: ? 172 ?QRS: ?-77 QRSD: ? 172 [...] Seng Brody Sa, MD - 05/09/2017 [facility] Test Date: 2017-05-03 Pat Name: DAVID FARFAN Department: JAME Chao Room: [facility] Gender: M Bridge Construction Inspector: [id number] : 1950 Requested By: MARIO ALBERTO SCANLON Order Number: [id number] Reading MD: SENG ROBLEDO Measurements Intervals [place] Rate: 75 P: 51 TN: 172 QRS: -77 QRSD: 172 T: 92 [...] Joesph Louie MD CARDIAC ECG ORDERABL ES [facility] * ECG REPORT - SCANNED (05/02/2017 11:16 EST) 05/02/2017 11:1 6 EST Scan 2 Drilling Field Professional PROCEDURE/MINOR VELMA GICAL ORDERABLES * PORTABLE CHEST [...] 10:10 EST) 05/02/2017 10:1 0 EST Narrative [facility] - 05/08/2017 8:22 EST ? [facility] ? Test Date: ?2017-05-02 Pat Name: ? DAVID FARFAN ?Department: ?? [facility] ? Room: ? MW514 Gender: ? 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 [id number] : ?1950 ? Requested By: SHAKIRA Martinez Order Number: [id number] ? Martha OAKES: ?? LALY BARBER MD ? Measurements Intervals ?[place] ? Rate: ? 63 ? P: ?40 TN: ? 170 ?QRS: ?-72 QRSD: ? 180 ?T: ?86 QT: ? 492 ? QTc: ?504 ? Interpretive Statements DUAL CHAMBER PACER ELECTRONIC VENTRICULAR PACEMAKER I reviewed the tracing and have either agreed or edited the findings in this report. Electronically Signed On 05-08-17 08:22:30 EST by LALY BARBER MD. Procedure Note Laly Barber MD - 05/08/2017 [facility] Test Date: 2017-05-02 Pat Name: DAVID FARFAN Department: [place] [address] Room: [facility] Gender: M Bridge Construction Inspector: [id number] : 1950 Requested By: SHAKIRA Martinez Order Number: [id number] Martha MD: LALY BARBER MD Measurements Intervals [place] Rate: 63 P: 40 TN: 170 QRS: -72 QRSD: 180 T: 86 QT: 492 QTc: 504 Interpretive Statements DUAL CHAMBER PACER ELECTRONIC VENTRICULAR PACEMAKER I reviewed the tracing and have either agreed or edited the findings inthis report. Electronically Signed On 05-08-17 08:22:30 EST by LALY YAO. Tony Rosenberg MD CARDIAC ECG O RDERABLES [facility] E[facility] * PERMANENT PACEMAKER PROCEDURE (05/02/2017 10:00 EST) Anatomical Region Laterality Modality Other 05/02/2017 10:0 0 EST Narrative 05/02/2017 11:24 EST *Cardiology* [address] [place] [address] Device Implantation Patient: David Farfan ? Study Date: ?05/02/2017 ? Accession #: ? [id number] : ? 1950 Referring: Attending: Tony Rosenberg [...] HARDWARE: Implanted device: Clifford Appiah Serial number: [id number]. LEAD PARAMETERS + + + + Lead # ? 1 ? 2 ? + + + + Chamber ? RA ? RV ? + + + + Date implanted ?? 05/02/2017 ? 05/02/2017 ? + + + + Model information [employer] ? [place] [employer] Ingevity ? ingevity mr ? MRI ? + + + + Serial number ? [id number] ? [id number] ? + + + + Location ? [...] Note Tony Rosenberg MD - 05/02/2017 *Cardiology* [address] [place] [address] Device Implantation Patient: David Farfan Study Date: [...] device: Clifford ESTEVEZ DR - Serial number: [id number]. LEAD PARAMETERS + + + + Lead # 1 2 + + + + Chamber RA RV + + + + Date implanted 05/02/2017 05/02/2017 + + + + Model information Tracsis Mathew hood mr MRI + + + + Serial number [id number] + + + + Location RA appendage [...] 0.68 0.66 - 1.25 mg/dl 05/02/2017 7:26 [facility] GFR, Calculated 100 >60 ml/min/1.7 3m2 05/02/2017 7:26 [facility] Comment: eGFR calculated using CKD-EPI equation for non Americans. Multiply eGFR by 1.16 for Americans. Blood specimen (specimen) BLOOD SPECIMEN / Unknown 05/02/2017 6:11 EST 05/02/2017 6:47 EST Houston Corey MD CHEMISTRY & BLOO D GAS ORDERABLES [facility] [address] [place] [address] * BUN (05/02/2017 6:11 EST) BUN 10 10 - 26 mg/dl 05/02/2017 7:26 [facility] LABORATORY SERVICES Blood specimen (specimen) BLOOD SPECIMEN / Unknown 05/02/2017 6:11 EST 05/02/2017 6:47 EST Houston Corey MD CHEMISTRY & BLOO D GAS ORDERABLES Performing Organization Address [facility] Co de Phone Number [facility] [address] [place] [address] * (ABNORMAL) ELECTROLYTES (05/02/2017 6:11 EST) Sodium 135(L) 136 - 145 mEq/L 05/02/2017 7:26 [facility] Potassium 4.4 3.5 - 5.0 mEq/L 05/02/2017 7:26 [facility] Chloride 102 96 - 110 mEq/L 05/02/2017 7:26 [facility] CO2 23 22 - 32 mEq/L 05/02/2017 7:26 [facility] Blood specimen (specimen) BLOOD SPECIMEN / Unknown 05/02/2017 6:11 EST 05/02/2017 6:47 EST Houston Corey MD CHEMISTRY & BLOO D GAS ORDERABLES Performing Organization Address [facility]/ZIP Co de Phone Number [facility] [address] [place] [address] * (ABNORMAL) HEMAGRAM (05/02/2017 6:11 EST) WBC 6.92 4.0 - 10.4 K/cmm 05/02/2017 6:59 [facility] RBC 3.67(L) 4.36 - 5.78 M/cmm 05/02/2017 6:59 [facility] Hemoglobin 12.3(L) 13.8 - 17.3 gm/dl 05/02/2017 6:59 [facility] HCT 35.2(L) 39.5 - 50.2 % 05/02/2017 6:59 [facility] MCV 96(H) 81 - 95 fl 05/02/2017 6:59 [facility] MCH 33.5(H) 27.6 - 33.0 pg 05/02/2017 6:59 EST [facility] MCHC 34.9 32.8 - 36.4 gm/dl 05/02/2017 6:59 EST [facility] RDW-CV 11.9 <14.2 % 05/02/2017 6:59 [facility] RDW-SD 41.1 <46.0 fl 05/02/2017 6:59 EST [facility] PLT 185 141 - 377 K/cmm 05/02/2017 6:59 [facility] MPV 12.9(H) 9.5 - 12.7 fl 05/02/2017 6:59 EST [facility] Blood specimen (specimen) BLOOD SPECIMEN / Unknown 05/02/2017 6:11 EST 05/02/2017 6:47 EST Houston Corey MD HEMATOLOGY & PF4 ORDERABLES Performing Organization Address City/[facility] Co de Phone Number [facility] [address] [place] [address] * (ABNORMAL) TROPONIN I (05/01/2017 7:52 EST) Troponin I (ng/mL) 0.035(H) <0.034 ng/ml 05/01/2017 9:10 EST [facility] Blood specimen (specimen) BLOOD SPECIMEN / Unknown 05/01/2017 7:52 EST 05/01/2017 8:19 EST Amelia Partida DO CHEMISTRY & BLOOD GAS ORDERABLES Performing Organization Address City/[facility]/ZIP Co de Phone Number [facility] [address] [place] [address] * MAGNESIUM (05/01/2017 6:01 EST) Magnesium 2.1 1.7 - 2.8 mg/dl 05/01/2017 6:46 EST [facility] Blood specimen (specimen) BLOOD SPECIMEN / Unknown 05/01/2017 6:01 EST 05/01/2017 6:15 EST Amelia Partida DO CHEMISTRY & BLOOD GAS ORDERABLES Performing Organization Address [facility] Co de Phone Number [facility] [address] [place] [address] * CREATININE (05/01/2017 6:01 EST) Creatinine 0.67 0.66 - 1.25 mg/dl 05/01/2017 6:46 [facility] GFR, Calculated 100 >60 ml/min/1.7 3m2 05/01/2017 6:46 [facility] Comment: eGFR calculated using CKD-EPI equation for non Americans. Multiply eGFR by 1.16 for Americans. Blood specimen (specimen) BLOOD SPECIMEN / Unknown 05/01/2017 6:01 EST 05/01/2017 6:15 EST Houston Corey MD CHEMISTRY & BLOO D GAS ORDERABLES Performing Organization Address [facility] Co de Phone Number [facility] [address] [place] [address] * (ABNORMAL) BUN (05/01/2017 6:01 EST) BUN 6(L) 10 - 26 mg/dl 05/01/2017 6:46 [facility] Blood specimen (specimen) BLOOD SPECIMEN / Unknown 05/01/2017 6:01 EST 05/01/2017 6:15 EST Houston Corey MD CHEMISTRY & BLOO D GAS ORDERABLES Performing Organization Address [facility] Co de Phone Number [facility] [address] [place] [address] * (ABNORMAL) ELECTROLYTES (05/01/2017 6:01 EST) Sodium 134(L) 136 - 145 mEq/L 05/01/2017 6:46 [facility] Potassium 4.5 3.5 - 5.0 mEq/L 05/01/2017 6:46 [facility] Chloride 101 96 - 110 mEq/L 05/01/2017 6:46 [facility] CO2 23 22 - 32 mEq/L 05/01/2017 6:46 [facility] Blood specimen (specimen) BLOOD SPECIMEN / Unknown 05/01/2017 6:01 EST 05/01/2017 6:15 EST Houston Corey MD CHEMISTRY & BLOO D GAS ORDERABLES [facility] [address] [place] [address] * (ABNORMAL) HEMAGRAM (05/01/2017 6:01 EST) WBC 7.09 4.0 - 10.4 K/cmm 05/01/2017 6:27 [facility] RBC 3.76(L) 4.36 - 5.78 M/cmm 05/01/2017 6:27 [facility] Hemoglobin 12.7(L) 13.8 - 17.3 gm/dl 05/01/2017 6:27 [facility] HCT 36.4(L) 39.5 - 50.2 % 05/01/2017 6:27 [facility] MCV 97(H) 81 - 95 fl 05/01/2017 6:27 [facility] MCH 33.8(H) 27.6 - 33.0 pg 05/01/2017 6:27 [facility] MCHC 34.9 32.8 - 36.4 gm/dl 05/01/2017 6:27 [facility] RDW-CV 11.9 <14.2 % 05/01/2017 6:27 [facility] RDW-SD 42.1 <46.0 fl 05/01/2017 6:27 [facility] PLT 205 141 - 377 K/cmm 05/01/2017 6:27 [facility] MPV 12.8(H) 9.5 - 12.7 fl 05/01/2017 6:27 [facility] Blood specimen (specimen) BLOOD SPECIMEN / Unknown 05/01/2017 6:01 EST 05/01/2017 6:15 EST Houston Corey MD HEMATOLOGY & PF4 ORDERABLES Performing Organization Address [facility] Co de Phone Number [facility] [address] [place] [address] * LIPID PROFILE (INCLUDES CHOLESTEROL, TRIGLYCERIDES, HDL, LDL) (05/01/2017 6:01 EST) Cholesterol 148 mg/dl 05/01/2017 6:46 [facility] Comment: Desirable:<200 Borderline High:200-239 High:>sm=068 Triglycerides 65 mg/dl 05/01/2017 6:46 [facility] Comment: Normal:<150 Borderline High:150-199 High:200-499 Very High:>hd=877 HDL 39 mg/dl 05/01/2017 6:46 [facility] Comment: Low:<40 Normal:40-60 Desirable: >60 LDL, Calculated 96 mg/dl 8 6:46 [facility] Comment: Optimal:<100 Near Optimal:100-129 Borderline High:130-159 High:160-189 Very High:>xq=240 Chol/HDL Ratio 3.8 05/01/2017 6:46 [facility] Fasting? Unknown 05/01/2017 6:46 [facility] Non HDL Cholesterol 109 mg/dl 05/01/2017 6:46 [facility] Comment: Desirable:<130 Borderline:130-159 High: 160-189 Very High: >zh=987 Blood specimen (specimen) BLOOD SPECIMEN / Unknown 05/01/2017 6:01 EST 05/01/2017 6:15 EST Houston Corey MD CHEMISTRY & BLOO D GAS ORDERABLES Performing Organization Address City/[facility]/ZIP Co de Phone Number [facility] [address] [place] [address] * (ABNORMAL) TROPONIN I (05/01/2017 0:20 EST) Troponin I (ng/mL) 0.055(H) <0.034 ng/ml 05/01/2017 1:01 [facility] Blood specimen (specimen) BLOOD SPECIMEN / Unknown 05/01/2017 0:20 EST 05/01/2017 0:24 EST Amelia Partida DO CHEMISTRY & BLOOD GAS ORDERABLES Performing Organization Address [facility] Co de Phone Number [facility] [address] [place] [address] * HEMOGLOBIN A1C (05/01/2017 0:20 EST) Hemoglobin A1C 5.7 % 05/01/2017 10:05 [facility] Comment: Reference Range: <5.7% Normal 5.7-6.4% Prediabetes =>6.5% Diagnostic for diabetes (if confirmed) Goals for glycemic control in diabetes ADA 2017 For non adults with diabetes: ?? Target <7.5% For children and adolescents with type 1 diabetes: ?? Target <7.0% More or less stringent targets may be appropriate for individual patients. Est Avg Glucose 117 mg/dl 8 10:05 [facility] Comment: eAG represents the A1c result expressed as average glucose in mg/dl. Blood specimen (specimen) BLOOD SPECIMEN / Unknown 05/01/2017 0:20 EST 05/01/2017 0:24 EST Houston Corey MD CHEMISTRY & BLOO D GAS ORDERABLES Performing Organization Address [facility] Co de Phone Number [facility] [address] [place] [address] * (ABNORMAL) PROTIME (04/30/2017 19:33 EST) Pro Time 15.1(H) 10.3 - 13.4 secs 04/30/2017 20:08 [facility] Comment:NOTE NEW REFERENCE Vern FUNG OF APR 03 2017 I.N.R. 1.3(H) 0.9 - 1.1 Ratio 04/30/2017 20:08 [facility] Comment: Moderate Intensity Coumadin INR = 2.0-3.0 Adjustments in anticoagulant therapy dose should be based upon the INR and NOT the Pro Time. Blood specimen (specimen) BLOOD SPECIMEN / Unknown 04/30/2017 19:33 EST 04/30/2017 19:47 EST Houston Corey MD HEMATOLOGY & PF4 ORDERABLES Performing Organization Address City/[facility]/ZIP Co de Phone Number [facility] [address] [place] [address] * ED/URGENT CARE ADD-ON (04/30/2017 18:20 EST) Tests to be added LYME AB, 04/30/2017 18:16 EST [facility] Comment:TSH Number for problems [id number] (ED) 04/30/2017 18:16 EST [facility] TOPOGRAPHY UNKNOWN / Unknown 04/30/2017 18:20 EST 04/30/2017 18:23 EST Amelia Partida DO HEMATOLOGY & PF4 ORDERABLES Performing Organization Address City/[facility] Co de Phone Number [facility] [address] [place] [address] * OUTSIDE IMAGES ??? ECHO IMAGES (04/30/2017 17:24 EST) Anatomical Region Laterality Modality Other 04/30/2017 17:2 4 EST Narrative 04/30/2017 17:24 EST This is an outside study - there is no report. Procedure Note [employer], IMAGING - 04/30/2017 This is an outside study - there is no report. Provider Unknown IMG OTHER IMAGING OR DERABLES * EKG 12-LEAD (04/30/2017 16:43 EST) 04/30/2017 16:4 3 EST Narrative [facility] EKG - 05/02/2017 11:12 EST ?[facility] Emergency ? Test Date: ?2017-04-30 Pat Name: ? DAVID FARFAN ?Department: ?? ED ? Room: ? AC12 Gender: ? 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 [id number] : ?1950 ? Requested By: DONNA HOOK L Order Number: [id number] ? Reading MD: ?? ANA LOBEL MD ? Measurements Intervals ?[place] ? Rate: ? 33 ? P: ? TN: ? 0 ?QRS: ?15 QRSD: ? 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: [id number] : 1950 Requested By: DONNA Cabral Order Number: [id number] Reading MD: ANA MARSH MD Measurements Intervals [place] Rate: 33 P: TN: 0 QRS: 15 QRSD: 110 T: 42 [...] Bridget Fields MD CARDIAC ECG ORDERAB LES [facility] EKG * TSH (04/30/2017 16:40 EST) TSH 1.34 0.47 - 4.68 uIU/ml 04/30/2017 19:24 [facility] BLOOD SPECIMEN / Unknown 04/30/2017 16:40 EST 04/30/2017 16:52 EST Bridget Fields MD CHEMISTRY & BLOOD G ORDERABLES [facility] [address] [place] [address] * LYME AB (04/30/2017 16:40 EST) Lyme AB Negative 05/01/2017 11:39 [facility] Comment:Reference Range: Neg ative BLOOD SPECIMEN / Unknown 04/30/2017 16:40 EST 04/30/2017 16:52 EST Bridget Fields MD IMMUNOLOGY AND SERO LOGY ORDERABLES Performing Organization Address [facility] Co de Phone Number [facility] [address] [place] [address] * (ABNORMAL) PROFILE ED CARDIAC PACK (04/30/2017 16:40 EST) Sodium 134(L) 136 - 145 mEq/L 04/30/2017 17:16 [facility] Potassium 4.2 3.5 - 5.0 mEq/L 04/30/2017 17:16 [facility] Chloride 105 96 - 110 mEq/L 04/30/2017 17:16 [facility] CO2 20(L) 22 - 32 mEq/L 04/30/2017 17:16 [facility] BUN 6(L) 10 - 26 mg/dl 04/30/2017 17:16 [facility] Creatinine 0.61(L) 0.66 - 1.25 mg/dl 04/30/2017 17:16 [facility] GFR, Calculated 104 >60 ml/min/1 .73m2 04/30/2017 17:16 [facility] Comment: eGFR calculated using CKD-EPI equation for non Americans. Multiply eGFR by 1.16 for Americans. Magnesium 1.7 1.7 - 2.8 mg/dl 04/30/2017 17:16 [facility] WBC 7.78 4.0 - 10.4 K/cmm 04/30/2017 17:12 [facility] RBC 3.72(L) 4.36 - 5.78 M/cmm 04/30/2017 17:12 [facility] Hemoglobin 12.6(L) 13.8 - 17.3 gm/dl 04/30/2017 17:12 [facility] HCT 35.7(L) 39.5 - 50.2 % 04/30/2017 17:12 [facility] MCV 96(H) 81 - 95 fl 04/30/2017 17:12 [facility] MCH 33.9(H) 27.6 - 33.0 pg 04/30/2017 17:12 [facility] MCHC 35.3 32.8 - 36.4 gm/dl 04/30/2017 17:12 [facility] RDW-CV 11.9 <14.2 % 04/30/2017 17:12 [facility] RDW-SD 41.5 <46.0 fl 04/30/2017 17:12 [facility] PLT 197 141 - 377 K/cmm 04/30/2017 17:12 [facility] MPV 12.5 9.5 - 12.7 fl 04/30/2017 17:12 [facility] % Neutrophils 62.1 % 04/30/2017 17:12 [facility] % Lymphocytes 23.9 % 04/30/2017 17:12 [facility] % Monocytes 11.6 % 04/30/2017 17:12 [facility] % Eosinophils 1.2 % 04/30/2017 17:12 [facility] % Basophils 0.9 % 04/30/2017 17:12 [facility] % Immature Grans 0.3 % 04/30/2017 17:12 [facility] ABS Neutrophils 4.84 2.20 - 8.85 K/cmm 04/30/2017 17:12 [facility] ABS Lymphs 1.86 1.09 - 3.30 K/cmm 04/30/2017 17:12 [facility] ABS Monocytes 0.90(H) 0.1 - 0.8 K/cmm 04/30/2017 17:12 [facility] ABS Eosinophils 0.09 0.03 - 0.61 K/cm 04/30/2017 17:12 [facility] ABS Basophils 0.07 0.01 - 0.11 K/cm 04/30/2017 17:12 [facility] ABS Immature Grans 0.02 0 - 0.06 K/cm 04/30/2017 17:12 [facility] Type of Diff: Automated 04/30/2017 17:12 [facility] Troponin I (ng/mL) 0.040(H) <0.034 ng/ml 04/30/2017 17:29 [facility] Glucose, Screening 100 70 - 100 mg/dl 04/30/2017 17:16 [facility] Hold Blue Top Sample for coagulation will be discarded after 4 hours 04/30/2017 17:04 [facility] Blood specimen (specimen) BLOOD SPECIMEN / Unknown 04/30/2017 16:40 EST 04/30/2017 16:52 EST Bridget Fields MD PACKAGES & DNA PROB E ORDERABLES Performing Organization Address City/State/[facility] Co de Phone Number [facility] [address] [place] [address] documented in this encounter Visit Diagnoses Diagnosis [...] 04/201705/01/2017 documented in this encounter Care Teams Financial Reporting Director Relationship Specialty Start Date End Date None, Provider PCP - General 04/30/17 05/01/17 Katia Stone, PABijalC [address] [place] [id number] PCP - General 05/02/17 documented as of this encounter
--- OUTSIDE RECORDS SUMMARY | 2023-10-13 22:28 | XMS_ITS | Encounter Summary ---
[place] [address] Care Team Providers Care Canine Deputy Name Role Phone Katia Stone Primary Care Provider Encounter Details Date Type Department Care Team (Late st Contact Info) Description 09/18/2022 Telephone Cardiology at [address] [phone] Zee Hyde Social History Tobacco Use Types [...] she will schedule him for those at [facility]. documented in this encounter Plan of Treatment Upcoming Encounters Date Type Department Care Team (Late st Contact Info) Description 11/06/2023 10:00 AM EDT Hospital Encounter Non-Invasive [place] [phone] Arrived documented as of this encounter Visit Diagnoses Not on filedocumented in this encounter Care Teams Canine Deputy Relationship Specialty Start Date End Date Katia Stone PA [address] [place] [phone] PCP - General General Internal Medicine 11/10/18 documented as of this encounter
--- OUTSIDE RECORDS SUMMARY | 2023-10-13 22:28 | XMS_ITS | Encounter Summary ---
Author Organization [facility] [place] [address] Care Team Providers Care Catalog Library Assistant Name Role Phone Katia Stone Primary Care Provider Encounter Details Date Type Department Care Team (Late st Contact Info) Description 02/13/2022 Orders Only Cardiology at [address] [phone] Dylan Story MD [facility] [address] [place] [address] Social History Tobacco Use Types Packs/Day Years [...] AM EDT Hospital Encounter Non-Invasive [place] [phone] Arrived documented as of this encounter Procedures [...] on filedocumented in this encounter Care Teams Catalog Library Assistant Relationship Specialty Start Date End Date Katia Stone PA [address] [facility] [place] [facility] [place] [phone] PCP - General General Internal Medicine 11/10/18 documented as of this encounter
--- OUTSIDE RECORDS SUMMARY | 2023-10-13 22:28 | XMS_ITS | Encounter Summary ---
Author Organization [facility] Address [facility] [place] [address] Care Team Providers Care Shell Core And Molding Supervisor Name Role Phone Katia Stone Primary Care Provider [phone] Reason for Visit * Auth/Cert (Routine) Specialty [...] OR PM) (WRVU 4.92) Dylan Story MD [facility] [place] [address] [facility] Referral ID Status Reason Start Date Expiration Date Visits Re quested Visits Authorized [id number] 1 1 Encounter Details Date Type Department Care Team (Late st Contact Info) Description 09/23/2022 12:06 PM EDT - 09/23/2022 2:36 PM EDT Surgery [place]rophys[place] [address] Dylan Story MD [facility] [place] [address] ELECTROPHYSIOLOGY PROCEDURE Social History Tobacco Use Types Packs/Day Years Used Date Smoking Tobacco: Never Smokeless Tobacco: Never Tobacco Cessation:Counseling Given: Not Answered Alcohol Use Standard Drinks/Week Comments Yes 14 (1 standard drink = 0.6 oz pu re alcohol) [facility] Inpatient Questions Answer Date Recorded Does [...] Tim Mera Patient Age: 71 y.o. Language: East Timorese Race: White Ethnicity: Not nor Admit date: 09/23/2022 Discharge date and time: 09/24/2022 1315 Attending Physician: Dylan Story MD Discharge Physician: Dylan Story MD Follow-up Recommendations for Providers: NEW - replaced Organ Scientific dual lead pacemaker with new atrial and ventricular pacing leads. Old leads capped and abandoned. Stable for discharge to home Needs non-emergent ambulance for transport back to [facility] in [place], [place]. Outpatient follow up scheduled at [facility] for 10 post implant check. Inpatient Provider Contact Information: Cardiac Electrophysiology [phone], option #[phone] Discharge Diagnoses (Hospital Problems) and Secondary Diagnoses (Chronic Problems): Active Hospital Problems Diagnosis Complete heart block Pacemaker - dual lead Organ Scientific pacemaker Resolved Hospital Problems No resolved problems to display. Operations/Major Procedures: Operations: Procedure(s): ELECTROPHYSIOLOGY PROCEDURE REMOVAL PPM GENERATOR W REPL PPM GEN; DUAL LEAD (WRVU 5.52) REPOSITIONING PREVIOUSLY PLACED ELECTRODE (ICD OR PM) (WRVU 4.92) 09/23/2022 History of Presentation: 71 y.o. male with a history of complete heart block s/p dual chamber permanent pacemaker April 2017 at [facility] course complicated by both pericardial effusion with [...] RV pacing leads were implanted. A new Organ Scientific pacemaker pulse generator was also implanted. [...] 106 (L): Data is abnormally low Treatments: Auditing Control Clerk Model # Serial # Generator (New) Organ Sci [id number] [id number] Atrial Lead (New) Organ Sci [id number] [id number] RV Lead Organ Sci 7742 192825 Old RA lead capped and abandoned Old RV lead found to have insulation deterioration and this lead was also capped and abandoned New RA and RV leads placed Hastingshyaqu pulse generator implanted DDD @ 60/120 Discharge [...] by mouth 3 times daily. Generic drug: qkyvrg-nrohhurj-gsfsgwi DR 1 capsule Refills: 0 fentaNYL 12 [...] incision. Make sure to use a cloth hand (such as a towel) in between the [...] F. The office scheduling phone number is [phone]. ARM MOVEMENT RESTRICTIONS POST-IMPLANT - Do not [...] please call the Cardiac ElectrophysiologyTriage Nurse at [phone], option 3. General Instructions Future Appointments and Orders Future Appointments and Orders Future Appointments Provider Department Dept Phone 10/04/2022 11:00 AM Maite Lozano RN Cardiology at [facility] Arrive at: [facility] [phone] 12/27/2022 11:00 AM Maite Lozano RN Cardiology at [facility] Arrive at: [facility] [phone] Discharge References/Attachments None Dylan Story MD [facility] [...] incision. Make sure to use a cloth hand (such as a towel) in between the [...] F. The office scheduling phone number is [phone]. ARM MOVEMENT RESTRICTIONS POST-IMPLANT - Do not [...] please call the Cardiac ElectrophysiologyTriage Nurse at [phone], option 3. documented in this encounter Medications [...] General Information Tim Mera 1950 Medicare Number: [id number] Transport Date: 09/24/22 (PCS is valid for round trips on this date and for all repetitive trips in the 60-day range as noted below.) Origin: [place] [address] Destination: [facility] [address] [place] [address] Is the patient's stay covered under Medicare [...] is contraindicated by the patient's condition: medical lab tech instructor required. Patient unable to tolerate seated position [...] van (i.e. seated during transport, without medical lab tech instructor or monitoring?): No 4) In addition to complete questions 1-3 above, please select any of the following conditions that apply: *Note: supporting documentation for any boxes checked must be maintained in the patient's medical records Moderate/severe pain on movement oil house attendant required Section III - Signature of [...] 09/24/2022 10:54 AM EDT Office of Care Management/General Science Teacher Patient Name: Tim Mera : 1950 Patient is returning to a SNF bed at [facility]. [facility] arranged for a 1300hrs transport. Ambulance will need: Medicare ambulance form completed and signed (MD or Hygiene Coordinator RN/SOCIAL WORK NURSE) Copy of patient demographics [place] or [place] Out of Hospital DNR/DNI order, if active No MD to MD report necessary. Please call Nursing Report to , ask for jetting machine operator. Info to accompany patient: Copies of Medication Administration Records and IV sheets for past 10 days. Plan: General Science Teacher will be available to the patient and Hygiene Coordinator-RN and/or Social Workerfor further assistance. Patient will be discharged to: [facility] [address] [place] [address] Paco Haider, General Science Teacher * Humberto Ashraf PA - 09/24/2022 10:31 AM EDT Inpatient Cardiac Electrophysiology Discharge Day Note Patient Name: Tim Mera Service: EP Responsible Attending: Dylan Story MD Reason for continued hospitalization: POD#1 pacemaker pulse generator and lead replacement Active Problems: Active Hospital Problems Diagnosis Complete heart block Pacemaker - dual lead Organ Scientific pacemaker Resolved Hospital Problems No resolved problems to display. Interval History: 71 y.o. male with a history of complete heart block s/p dual chamber permanent pacemaker April 2017 at [facility] course complicated by both pericardial effusion with [...] RV pacing leads were implanted. A new Organ Scientific pacemaker pulse generator was also implanted. [...] Oral Daily loratadine 10 mg Oral Daily rwmcid-getmlfww-ccefhxb DR 1 capsule Oral TID magnesium oxide [...] 0.00 - 0.04 x10(3)/mcL Pertinent Radiographic/Diagnostic Results: Auditing Control Clerk Model # Serial # Generator (New) IronPlanet Sci L311 [id number] Atrial Lead (New) Organ FitStar 7841 [id number] RV Lead Organ Sci 7742 [id number] Old RA lead capped and abandoned Old RV lead found to have insulation deterioration and this lead was also capped and abandoned New RA and RV leads placed [employer] pulse generator implanted DDD @ 60/120 P wave: 2.2mV R wave: none above 30 Atrial impedance: 581 ohms RV impedance:777 ohms RA threshold: 0.7V @0.4ms RV threshold: 0.4V @ 0.4ms AP 38%; GUARD MANAGER 100% No events Estimated battery longevity >8 years CXR: 09/24/2022 Left sided dual lead pacemaker 4 leads; two abandoned No pneumothorax +small bilateral pleural effusions Assessment: Tim Mera is a 71 y.o. male withhx of complete heart block, s/p dual lead [id number] at [facility], now with cell depletion, fractured atrial lead and unexpected insulation deteriorationof RV lead resulting placement of new RA and RV pacing leads along with a new pulse generator. Device function is excellent today. Plan: NEW - replaced Organ Scientific dual lead pacemaker with new atrial and ventricular pacing leads. Old leads capped and abandoned. Stable for discharge to home Needs non-emergent ambulance for transport back to [facility] in [place], [place]. Outpatient follow up scheduled at [facility] for 10 post implant check. Provider: GIRISH Marin EP Procedural attending physician: Adiel Story MD EP Consult positional pager #[phone](EPMD) EP Device interrogation positional pager # [phone] * Rosie Ashraf RN - 09/23/2022 5:37 [...] dual chamber permanent pacemaker April 2017 at [facility] course complicated by both pericardial effusion with [...] Chest Tube/Pleural Drain 07/10/2021 Vick Boss MD [facility] RAD CT SCAN CT PERITONEAL DRAINAGE 07/10/2021 CT Guided Drain Peritoneal 07/10/2021 Vick Boss MD [facility] RAD CT SCAN LAB VALUES: Laboratory Data: Lab Results Component Value Date WBC 9.4 09/23/2022 HGB 13.1 (L) 09/23/2022 HCT 39.5 (L) 09/23/2022 MCV 104.8 (H) 09/23/2022 ASSESSMENT AND PLAN: Tim Mera is a 71 y.o. male with a history of complete heart block s/p dual chamber permanent pacemaker April 2017 at [facility] course complicated by both pericardial effusion with [...] MD Cardiac Electrophysiology Fellow [facility] Pager [phone] 09/23/2022 I met with the patient today [...] in agreement. Dr. Dylan Story, electrophysiology attending ([id number]) documented in this encounter Miscellaneous Notes * Care Management Discharge - Tim Casillas RN - 09/24/2022 11:30 AM EDT CARE MANAGEMENT FINAL DISCHARGE NOTE Chart reviewed, care reviewed with primary team and at interdisciplinary rounds. Patient is medically ready for discharge to [facility]. Needs for Transition of Care: Plan for discharge is: [facility] Out[facility] Agency/Support Group Needs: None Agency Referrals & Follow-up Care: Contact information for follow-up [facility] [address] [place] [address] Transportation: ambulance Ambulance Finance Conversation Completed: 09/24/2022 Spoke to: Radha Chand FORMSTONE FITTER at accepting facility Verbalized Understanding: Yes Functional [...] Operative Note Patient Name: Tim Mera : [id number] MR#: [id number] Case Date: 09/23/2022 Surgeon: Surgeon(s) and Role: [...] AM EDT Hospital Encounter [place] [address] Arrived Scheduled Orders Name Type Priority Associated [...] PM EDT Pacemaker battery depletion AV block CBC (WITH DIFF) Routine 09/23/2022 12:05 PM EDT Pacemaker battery depletion AV block BASIC METABOLIC PANEL Routine 09/23/2022 12:05 PM EDT Pacemaker battery [...] who have questions please contact the health director of patient care that requested your imaging first. ? Electronically signed by: Denilson Puentes MD, [facility] ([phone]), at 09/24/2022 8:47 AM Narrative 09/24/2022 8:47 [...] patients who have questions please contactthe health director of patient care that requested your imaging first. Electronically signed by: Denilson Puentes MD, [facility]([phone]), at 09/24/2022 8:47 AM Dylan Story MD IMG DX ORDERABLES * EKG 12 Lead (09/23/2022 5:18 PM EDT) Ventricular rate 74 BPM MUSE SYSTEM Atrial Rate 74 BPM MUSE SYSTEM P-R Interval 168 ms MUSE SYSTEM QRS Duration 164 ms MUSE SYSTEM Q-T Interval 458 ms MUSE SYSTEM QTC Calculated (Bezet) 508 ms MUSE SYSTEM Calculated P Highland 13 degrees MUSE SYSTEM Calculated R Highland -72 degrees MUSE SYSTEM Calculated T Highland 91 degrees MUSE SYSTEM INTERPRETATION Atrial-sense d ventricular- paced rhythm Abnormal ECG No previous ECGs available Confirmed by Bro Dasilva ([id number]) on 09/24/2022 9:15:33 AM MUSE SYSTEM 09/23/2022 [...] PATIENT NAME: Tim Mera PATIENT : 1950 POLE INCISOR OPERATOR: Dylan Story MD FELLOW: Vini Lucero MD REFERRING PROVIDER: GIRISH Rai PROCEDURE DATE: 09/23/2022 PATIENT HISTORY: Mr. Mera is a 71 year old man with a history of complete heart block status post dual chamber Organ Scientific pacemaker in 2018 with course complicated [...] the entire procedure. LEAD AND GENERATOR DATA: Auditing Control Clerk Model # Serial # Generator (New) Gravity L311 [id number] Atrial Lead (New) Organ FitStar 7841 [id number] RV Lead (new) Organ FitStar 7842 [id number] REMOVED GENERATOR AND CAPPED ATRIAL LEAD: Auditing Control Clerk Model # Serial # Generator (Explanted) Gravity L111 201974 Atrial Lead (Capped) Lyxiatronic 3830 [id number] ?? Ventricular lead (capped) hyaqu 7742 558455 PACE/SENSE DATA: Sensed wave (mV) Threshold (V) [...] with new A and V leads (cpt 98231) Dylan Story MD S Cardiac Electrophysiology 09/24/2022 1:57 PM Procedure Note Dylan Story MD - 09/27/2022 Images from the original note were not included. PACEMAKER GENERATOR CHANGE AND REVISION OF RA AND RV LEADS PATIENT NAME: Tim Mera PATIENT : 1950 POLE INCISOR OPERATOR: Dylan Story MD FELLOW: Vini Lucero MD REFERRING PROVIDER: GIRISH Rai PROCEDURE DATE: 09/23/2022 PATIENT HISTORY: Mr. Mera is a 71 year old man with a history of complete heart blockstatus post dual chamber Organ Scientific pacemaker in 2018 with coursecomplicated by [...] the entire procedure. LEAD AND GENERATOR DATA: Auditing Control Clerk Model # Serial # Generator (New) Organ FitStar L311 409351 Atrial Lead (New) Organ FitStar 7841 [id number] RV Lead (new) Organ FitStar 7842 [id number] REMOVED GENERATOR AND CAPPED ATRIAL LEAD: Auditing Control Clerk Model # Serial # Generator (Explanted) Organ FitStar L111 934292 Atrial Lead (Capped) Medtronic 3830 [id number] Ventricular lead (capped) hyaqu 7742 652290 PACE/SENSE DATA: Sensed wave (mV) Threshold (V) [...] pacemaker with new A and V leads(cpt 85864) Dylan Story MD [facility] Cardiac Electrophysiology 09/24/2022 1:57 PM Dylan Story MD EP PROCEDURE ORDERAB LES * (ABNORMAL) Differential, Automated (09/23/2022 12:05 PM EDT) Neutrophil % 62.1 % [facility] Neutrophil Absolute 5.82 1.70 - 6.10 x10(3)/mc L [facility] Lymph % 22.3 % [facility] Lymphocytes Abs 2.1 0.9 - 3.2 x10(3)/mc L [facility] Monocyte % 11.8 % [facility] Monocyte Abs 1.1(H) 0.3 - 0.9 x10(3)/mc L [facility] Eos % 2.1 % [facility] Eosinophils Abs 0.2 0.0 - 0.4 x10(3)/mc L [facility] Basophil % 1.1 % [facility] Baso Absolute 0.1 0.0 - 0.1 x10(3)/mc L [facility] Immature Gran % 0.60 % [facility] Comment: Immature granulocytes(IG's)percentage and absolute count will include metamyelocytes, myelocytes, and promyelocytes. Blood smears from CBCs yielding IG's will be scanned manually for concordance. If this scan disagrees with the automated IG or if promyelocytes are noted, a manual differential will be performed. Immature Gran Absolute 0.06(H) 0.00 - 0.04 x10(3)/mc L [facility] Blood 09/23/2022 12:0 5 PM EDT 09/23/2022 12:25 PM EDT Narrative Resulting Agency Comment Spec In Lab Dylan Story MD HEMATOLOGY ORDERABLE S Performing Organization Address City/[facility]/ZIP Co de Phone Number [facility] [place] [address] * (ABNORMAL) Hemogram (09/23/2022 12:05 PM EDT) White Blood Cell 9.4 4.0 - 9.5 x10(3)/mc L [facility] Red Blood Cell 3.77(L) 4.58 - 5.54 x10(6)/mc L [facility] Hemoglobin 13.1(L) 13.7 - 16.5 g/dL [facility] Hematocrit 39.5(L) 40.5 - 48.5 % [facility] Mean Cell Volume 104.8(H) 82.9 - 93.1 fL [facility] Mean Cell Hemoglobin 34.7(H) 27.5 - 32.1 pg [facility] Mean Cell Hemoglobin Concentration 33.2 32.0 - 35.7 g/dL [facility] Platelet 276 145 - 357 x10(3)/mc L [facility] RDW Standard Deviation 47.7(H) 36.0 - 45.0 fL [facility] RDW coefficient of variation 12.3 11.4 - 13.8 % [facility] Mean Platelet Volume 10.4 7.6 - 12.9 fL [facility] NRBC% auto 0.0 % [facility] NRBC Absolute 0.000 0.000 - 0.000 x10(3)/mc L [facility] Blood 09/23/2022 12:0 5 PM EDT 09/23/2022 12:25 PM EDT Narrative Resulting Agency Comment Spec In Lab Dylan Story MD HEMATOLOGY ORDERABLE S Performing Organization Address [facility]/ZIP Co de Phone Number [facility] [place] [address] * (ABNORMAL) Basic Metabolic Panel (non-fasting) (09/23/2022 12:05 PM EDT) Glucose 106 65 - 199 mg/dL [facility] Comment:Diabetes: >=200 mg/d L plus symptoms Blood Urea Nitrogen 8(L) 10 - 20 mg/dL [facility] Creatinine 0.58(L) 0.80 - 1.50 mg/dL [facility] Sodium 130(L) 135 - 145 mmol/L [facility] Potassium 5.0 3.5 - 5.0 mmol/L [facility] Comment: Please note: ??Patients with WBC >100,000 may have falsely elevated Potassium levels. ??For accurate Potassium quantification in these patients send serum separator tube (gold top) for subsequent determinations. ??Contact the Clinical Chemistry Laboratory if there are any questions. Chloride 95(L) 98 - 107 mmol/L [facility] Carbon Dioxide 25 22 - 31 mmol/L [facility] Anion Gap 10 5 - 15 mmol/L [facility] Calcium 9.3 8.5 - 10.5 mg/dL [facility] Est Glomerular Filtration Rate 104 >=60 mL/min/1. 73 m?? [facility] Comment: This patient's estimated GFR [...] In Lab Dylan Story MD CHEMISTRY ORDERABLES [facility] [place] [address] documented in this encounter Visit Diagnoses Diagnosis [...] Given 09/23/2022 2:11 PM EDT 400 mg algggb-qzoxlvia-qbgmxek DR (Creon 24) 24,000-76,000 -120,000 unit per [...] 1411 (Given - Provider: Vini Lucero MD) zsvhbu-rpbmdesy-xsuksxj DR (Creon 24) 24,000-76,000 -120,000 unit per capsule 1 capsule 1 capsule, Oral, 3 TIMES DAILY, First dose on Fri09/23/22 at 2100, Until Discontinued, Routine 2027 (Given - Provider: Ann Marie Maki RN) 0847 (Given - Provider: Mendy Briscoe RN) loratadine (Claritin) tablet 10 mg 10 mg, Oral, DAILY, First dose on Fri09/24/22 at 0900, Until Discontinued 08 (Given - Provid er: Mendy Briscoe RN) [...] Routine documented in this encounter Care Teams Shell Core And Molding Supervisor Relationship Specialty Start Date End Date Katia Stone PA [address] [place] [address] PCP - General General Internal Medicine 11/10/18 documented as of this encounter
--- OUTSIDE RECORDS SUMMARY | 2023-10-13 22:28 | XMS_ITS | Encounter Summary ---
Author Organization [facility] Address [facility] [place] [address] Care Team Providers Care Carbide Powder Processor Name Role Phone Katia Stone Primary Care Provider [phone] Encounter Details Date Type Department Care Team (Late st Contact Info) Description 04/04/2022 Notes Only Cardiology at [address] [phone] Humberto Ashraf PA [facility] [place] [address] Social History Tobacco Use Types Packs/Day Years [...] pacing threshold; afib/flutter Transmission Date: 03/28/2022 Device Activities Manager and Type: [employer] L111 Battery Status: estimated longevity 6 months Atrial lead status: normal sensing and impedance; elevated pacing threshold(now 4.0V @ 0.4ms); known partial fx Right ventricular lead status: good Left ventricular lead status: n/a Pacin % Atrial pacing 100 % Ventricular pacing Events/Arrhythmias noted since last reset: New acutely elevated RA pacing threshold Impression: 71yo man with dual lead [employer] 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 He is followed at [facility] and has reported known atrial lead dysfunction as assessed by Dr. Story. Now as he approaches [facility], he should be evaluated for lead replacement, +/-extraction of the fractured lead. I will request follow up to be scheduled. GIRISH Marin, MPAS, DFAAPA documented in this encounter Plan of Treatment Upcoming Encounters Date Type Department Care Team (Late st Contact Info) Description 11/06/2023 10:00 AM EDT Hospital Encounter [place] [address] Arrived documented as of this encounter Visit Diagnoses Not on filedocumented in this encounter Care Teams Carbide Powder Processor Relationship Specialty Start Date End Date Katia Stone PA [address] [place] [phone] PCP - General General Internal Medicine 11/10/18 documented as of this encounter
--- OUTSIDE RECORDS SUMMARY | 2023-10-13 22:28 | XMS_ITS | Encounter Summary ---
Author Organization [facility] Address [facility] [place] [address] Care Team Providers Care Erosion Control Coordinator Name Role Phone Katia Stone Primary Care Provider Encounter Details Date Type Department Care Team (Latest Contact Info) Description 02/09/2023 10:00 AM EST - 02/09/2023 11:59 PM [facility]-Invasive [place] [address] Discharge Disposition: Home Social History Tobacco Use [...] AM EDT Hospital Encounter Non-Invasive [place] [address] Arrived documented as of this encounter Procedures [...] on filedocumented in this encounter Care Teams Erosion Control Coordinator Relationship Specialty Start Date End Date Katia Stone PA [address] [place] [phone] PCP - General General Internal Medicine 11/10/18 documented as of this encounter
--- OUTSIDE RECORDS SUMMARY | 2023-10-13 22:28 | XMS_ITS | Encounter Summary ---
Author Organization [place] [address] Care Team Providers Care Interactive Media Marketing Specialist Name Role Phone Katia Stone Primary Care Provider [phone] Encounter Details Date Type Department Care Team (Latest Contact Info) Description 11/14/2021 - 11/14/2021 11:59 PM EDT Hospital Encounter Non-[place] [address] Radha Hammond MD [facility] [address] CHB (complete heart block) Discharge Disposition: Home [...] AM EDT Hospital Encounter Non-Invasive [place] [address] Arrived documented as of this [...] pdf document Date of transmission: 11/14/21 Device commercial internship: BSC Device type: DC PM Presenting rhythm: apvp AP 56% SCHOOL TREASURER 100% - no LV functional assessment in [...] complete documented in this encounter Care Teams Interactive Media Marketing Specialist Relationship Specialty Start Date End Date Katia Stone PA [address] [place] [phone] PCP - General General Internal Medicine 11/10/18 documented as of this encounter
--- OUTSIDE RECORDS SUMMARY | 2023-10-13 22:28 | XMS_ITS | Encounter Summary ---
Author Organization [facility] [place] [address] Care Team Providers Care Casualty Claims Supervisor Name Role Phone Katia Stone Primary Care Provider Encounter Details Date Type Department Care Team (Late st Contact Info) Description 07/23/2021 [place] [phone] Mykel Stern, [facility] [place] [address] Social History Tobacco Use Types Packs/Day Years [...] were requested by Dr. Virginia Price of [facility]. Unclear follow up in our system; [...] Chest Tube/Pleural Drain 07/10/2021 Vick Boss MD [facility] RAD CT SCAN ??? CT PERITONEAL DRAINAGE 07/10/2021 CT Guided Drain Peritoneal 07/10/2021 Vick Boss MD [facility] RAD CT SCAN Medications: Allergies: Patient has [...] AM EDT Hospital Encounter [place] [address] Arrived documented as of this encounter Visit Diagnoses Not on filedocumented in this encounter Care Teams Casualty Claims Supervisor Relationship Specialty Start Date End Date Katia Stone PA [facility] [address] [place] [address] PCP - General General Internal Medicine 11/10/18 documented as of this encounter
--- OUTSIDE RECORDS SUMMARY | 2023-10-13 22:28 | XMS_ITS | Encounter Summary ---
Author Organization [facility] [place] [address] Care Team Providers Care Computational Chemist Name Role Phone Katia Stone Primary Care Provider [phone] Reason for Visit * Auth/Cert (Routine) Specialty [...] OR PM) (WRVU 4.92) Dylan Story MD [facility] [place] [address] [facility] Referral ID Status Reason Start Date Expiration Date Visits Re quested Visits Authorized [id number] 1 1 Encounter Details Date Type Department Care Team (Late st Contact Info) Description 09/23/2022 1:23 PM EDT Anesthesia Event [place] [address] Alida Lopez MD [facility] [place] [address] Anesthesia Record Procedure Summary Procedure Name Responsible [...] 1012; metacarpal vein (top of hand), left; arkm-rdp-daazdy catheter system; 22 gauge; OSH; 09/23/22; 1307 07/10/21 1012 by Marilyn Duncan RN 09/23/22 1307 by Jessica Sandhu RN (RETIRED) Peripheral IV Line - Single Lumen 09/23/22; 1307; metacarpal vein (top of hand), left; nlzo-qdk-cmcwhq catheter system; Anatomical Landmarks; 20 gauge; anes; [...] Room / Location: EP B-LAB ROOM / [facility] EP LABS Anesthesia Start: 1323 Anesthesia Stop: 1639 Procedures: ELECTROPHYSIOLOGY PROCEDURE (Left) REMOVAL PPM GENERATOR W REPL PPM GEN; DUAL LEAD (WRVU 5.52) (Chest) REPOSITIONING PREVIOUSLY PLACED ELECTRODE (ICD OR PM) (WRVU 4.92) Diagnosis: Pacemaker at end of battery life (Pacemaker at end of battery life [Z45.010]) Providers: Dylan Story MD Responsible Provider: Alida Lopez MD Anesthesia Type: MAC ASA Status: 3 All Anesthesia Providers: Anesthesiologist: Alida Lopez MD PARKING METER MECHANIC: Jill Ríos CRNA Vitals Value Taken Time BP 125/94 09/23/22 1715 Temp 36.4 ??C (97.5 ??F) 09/23/22 1634 Pulse 73 09/23/22 1722 Resp 20 09/23/22 1722 SpO2 92 % 09/23/22 1722 Pain Level 10 09/23/22 1720 Vitals shown include unvalidated device data. Patient Location: PACU/[facility] Level of Consciousness: Conscious but Sleepy [...] were not included. Pre-Anesthesia Evaluation for: Tim Mera a 71 y.o. male. Procedure(s): ELECTROPHYSIOLOGY PROCEDURE REMOVAL [...] Chest Tube/Pleural Drain 07/10/2021 Vick Boss MD [facility] RAD CT SCAN ??? CT PERITONEAL DRAINAGE 07/10/2021 CT Guided Drain Peritoneal 07/10/2021 Vick Boss MD [facility] RAD CT SCAN Social History Tobacco Use [...] risks discussed with patient. Plan discussed with PARKING METER MECHANIC and attending. Anesthesia Screening documented in this encounter Plan of Treatment Upcoming Encounters Date Type Department Care Team (Late st Contact Info) Description 11/06/2023 10:00 AM EDT Hospital Encounter Non-Invasive [place] [address] Arrived documented as of this [...] mg documented in this encounter Care Teams Computational Chemist Relationship Specialty Start Date End Date Katia Stone PA [address] [place] [phone] PCP - General General Internal Medicine 11/10/18 documented as of this encounter
--- OUTSIDE RECORDS SUMMARY | 2023-10-13 22:28 | XMS_ITS | Encounter Summary ---
Author Organization [facility] Address [facility] [place] [address] Care Team Providers Care Diesel Motor Mechanic Name Role Phone Katia Stone Primary Care Provider [phone] Encounter Details Date Type Department Care Team (Latest Contact Info) Description 02/09/2023 10:00 AM [facility] Hospital Encounter Non-Invasive [place] [address] Discharge Disposition: Home Social History Tobacco Use [...] AM EDT Hospital Encounter Non-Invasive [place] [address] Arrived documented as of this encounter Visit Diagnoses Not on filedocumented in this encounter Care Teams Diesel Motor Mechanic Relationship Specialty Start Date End Date Katia Stone PA [facility] [address] [place] [phone] PCP - General General Internal Medicine 11/10/18 documented as of this encounter
--- OUTSIDE RECORDS SUMMARY | 2023-10-13 22:28 | XMS_ITS | Encounter Summary ---
Author Organization [facility] [place] [address] Care Team Providers Care Dough Machine Operator Name Role Phone Katia Stone Primary Care Provider Encounter Details Date Type Department Care Team (Latest Contact Info) Description 05/10/2023 10:00 AM EST - 05/10/2023 11:59 PM [facility] Hospital Encounter Non-Invasive [place] [address] Discharge Disposition: Home Social History Tobacco Use [...] AM EDT Hospital Encounter Non-[place]vasive [place] [address] Arrived documented as of this encounter Procedures [...] on filedocumented in this encounter Care Teams Dough Machine Operator Relationship Specialty Start Date End Date Katia Stone PA [address] [facility] [place] [address] PCP - General General Internal Medicine 11/10/18 documented as of this encounter
--- OUTSIDE RECORDS SUMMARY | 2023-10-13 22:28 | XMS_ITS | Encounter Summary ---
Author Organization [facility] Address [facility] [place] [address] Care Team Providers Care Escrow Agent Name Role Phone Katia Stone Primary Care Provider Encounter Details Date Type Department Care Team (Latest Contact Info) Description 08/08/2023 10:00 AM EDT - 08/08/2023 11:59 PM EDT Hospital Encounter Non-[place] [address] Discharge Disposition: Home Social History Tobacco Use [...] AM EDT Hospital Encounter Non-Invasive [place] [address] Arrived documented as of this encounter Procedures [...] on filedocumented in this encounter Care Teams Escrow Agent Relationship Specialty Start Date End Date Katia Stone PA [address] [place] [phone] PCP - General General Internal Medicine 11/10/18 documented as of this encounter
--- OUTSIDE RECORDS SUMMARY | 2023-10-13 22:28 | XMS_ITS | Encounter Summary ---
Author Organization [facility] Address [facility] [place] [address] Care Team Providers Care Marriage And Family Teacher Name Role Phone Katia Stone Primary Care Provider [phone] Reason for Visit * Auth/Cert (Routine) Specialty [...] OR PM) (WRVU 4.92) Dylan Story MD [facility] [place] [address] [facility] Referral ID Status Reason Start Date Expiration Date Visits Re quested Visits Authorized [id number] 1 1 Encounter Details Date Type Department Care Team (Latest Contact Info) Description 09/23/2022 11:49 AM EDT - 09/24/2022 1:21 PM EDT Hospital Encounter Heart and Vascular Unit Level 4 [place] [phone] Dylan Story MD [facility] [place] [address] Pacemaker at end of battery life; Pacemaker [...] Tim Mera Patient Age: 71 y.o. Language: Grenadian Race: White Ethnicity: Not nor Admit date: 09/23/2022 Discharge date and time: 09/24/2022 1315 Attending Physician: Dylan Story MD Discharge Physician: Dylan Story MD Follow-up Recommendations for Providers: NEW - replaced [employer] dual lead pacemaker with new atrial and ventricular pacing leads. Old leads capped and abandoned. Stable for discharge to home Needs non-emergent ambulance for transport back to [facility] in [place], [place]. Outpatient follow up scheduled at [facility] for 10 post implant check. Inpatient Provider Contact Information: Cardiac Electrophysiology [phone], option #3 Discharge Diagnoses (Hospital Problems) and Secondary Diagnoses (Chronic Problems): Active Hospital Problems Diagnosis Complete heart block Pacemaker - dual lead [employer] pacemaker Resolved Hospital Problems No resolved problems to display. Operations/Major Procedures: Operations: Procedure(s): ELECTROPHYSIOLOGY PROCEDURE REMOVAL PPM GENERATOR W REPL PPM GEN; DUAL LEAD (WRVU 5.52) REPOSITIONING PREVIOUSLY PLACED ELECTRODE (ICD OR PM) (WRVU 4.92) 09/23/2022 History of Presentation: 71 y.o. male with a history of complete heart block s/p dual chamber permanent pacemaker April 2017 at [facility] course complicated by both pericardial effusion with [...] RV pacing leads were implanted. A new [employer] pacemaker pulse generator was also implanted. [...] 106 (L): Data is abnormally low Treatments: Smelter Charger Model # Serial # Generator (New) [employer] [id number] [id number] Atrial Lead (New) [employer] [id number] RV Lead [employer] 7742 [id number] Old RA lead capped and abandoned Old RV lead found to have insulation deterioration and this lead was also capped and abandoned New RA and RV leads placed [employer] pulse generator implanted DDD @ 60/120 Discharge [...] by mouth 3 times daily. Generic drug: mcovbp-upnlqmjb-ljclgdb DR 1 capsule Refills: 0 fentaNYL 12 [...] incision. Make sure to use a cloth doffer (such as a towel) in between the [...] F. The office scheduling phone number is [phone]. ARM MOVEMENT RESTRICTIONS POST-IMPLANT - Do not [...] please call the Cardiac ElectrophysiologyTriage Nurse at [phone], option 3. General Instructions Future Appointments and Orders Future Appointments and Orders Future Appointments Provider Department Dept Phone 10/04/2022 11:00 AM Maite Lozano RN Cardiology at [facility] Arrive at: [facility] Area [phone] 12/27/2022 11:00 AM Maite Lozano RN Cardiology at [facility] Arrive at: [facility] [phone] Discharge References/Attachments None Dylan Story MD [facility] [...] incision. Make sure to use a cloth doffer (such as a towel) in between the [...] F. The office scheduling phone number is [phone]. ARM MOVEMENT RESTRICTIONS POST-IMPLANT - Do not [...] please call the Cardiac ElectrophysiologyTriage Nurse at [phone], option 3. documented in this encounter Medications [...] Tim Casillas RN - 09/24/2022 10:56 AM EDTSummardano: ambulance form Physician Certification Statement for Non-Emergency Ambulance Services Section I - General Information Tim Mera 1950 Medicare Number: [id number] Transport Date: 09/24/22 (PCS is valid for round trips on this date and for all repetitive trips in the 60-day range as noted below.) Origin: [place] [address] Destination: [facility] [address] [place] [address] Is the patient's stay covered [...] means is contraindicated by the patient's condition: esthetician and manager medical spa required. Patient unable to tolerate seated position [...] wheelchair van (i.e. seated during transport, without esthetician and manager medical spa or monitoring?): No 4) In addition to complete questions 1-3 above, please select any of the following conditions that apply: *Note: supporting documentation for any boxes checked must be maintained in the patient's medical records Moderate/severe pain on movement nursery school attendant required Section III - Signature of [...] 09/24/2022 10:54 AM EDT Office of Care Management/Placement Secretary Patient Name: Tim Mera : 1950 Patient is returning to a SNF bed at [facility]. [facility] arranged for a 1300hrs transport. Ambulance will need: Medicare ambulance form completed and signed (MD or Delivery Lead RN/REGISTERED RADIATION THERAPIST) Copy of patient demographics [place] or [place] [facility] DNR/DNI order, if active No MD to MD report necessary. Please call Nursing Report to , ask for timber framer. Info to accompany patient: Copies of Medication Administration Records and IV sheets for past 10 days. Plan: Placement Secretary will be available to the patient and Delivery Lead-RN and/or Social Workerfor further assistance. Patient will be discharged to: [facility] [address] [place] [id number] Holly Urbina * Humberto Ashraf PA - 09/24/2022 10:31 AM EDT Inpatient Cardiac Electrophysiology Discharge Day Note Patient Name: Tim Mera Service: EP Responsible Attending: Dylan Story MD Reason for continued hospitalization: POD#1 pacemaker pulse generator and lead replacement Active Problems: Active Hospital Problems Diagnosis Complete heart block Pacemaker - dual lead [employer] pacemaker Resolved Hospital Problems No resolved problems to display. Interval History: 71 y.o. male with a history of complete heart block s/p dual chamber permanent pacemaker April 2017 at [facility] course complicated by both pericardial effusion with [...] RV pacing leads were implanted. A new [employer] pacemaker pulse generator was also implanted. [...] Oral Daily loratadine 10 mg Oral Daily kiaeel-ntmxhzzf-plddukv DR 1 capsule Oral TID magnesium oxide [...] 0.00 - 0.04 x10(3)/mcL Pertinent Radiographic/Diagnostic Results: Smelter Charger Model # Serial # Generator (New) [employer] [id number] [id number] Atrial Lead (New) [employer] 7841 [id number] RV Lead [employer] 7742 812132 Old RA lead capped and abandoned Old RV lead found to have insulation deterioration and this lead was also capped and abandoned New RA and RV leads placed [employer] pulse generator implanted DDD @ 60/120 P wave: 2.2mV R wave: none above 30 Atrial impedance: 581 ohms RV impedance:777 ohms RA threshold: 0.7V @0.4ms RV threshold: 0.4V @ 0.4ms AP 38%; PRIMING MIXTURE CARRIER 100% No events Estimated battery longevity >8 years CXR: 09/24/2022 Left sided dual lead pacemaker 4 leads; two abandoned No pneumothorax +small bilateral pleural effusions Assessment: Tim Mera is a 71 y.o. male withhx of complete heart block, s/p dual lead [id number] at [facility], now with cell depletion, fractured atrial lead and unexpected insulation deteriorationof RV lead resulting placement of new RA and RV pacing leads along with a new pulse generator. Device function is excellent today. Plan: NEW - replaced [employer] dual lead pacemaker with new atrial and ventricular pacing leads. Old leads capped and abandoned. Stable for discharge to home Needs non-emergent ambulance for transport back to [facility] in [place], [place]. Outpatient follow up scheduled at [facility] for 10 post implant check. Provider: GIRISH Marin EP Procedural attending physician: Adiel Story MD EP Consult positional pager #[phone](EPMD) EP Device interrogation positional pager # [phone] * Rosie Ashraf RN - 09/23/2022 5:37 [...] dual chamber permanent pacemaker April 2017 at [facility] course complicated by both pericardial effusion with [...] Chest Tube/Pleural Drain 07/10/2021 Vick Boss MD [facility] RAD CT SCAN CT PERITONEAL DRAINAGE 07/10/2021 CT Guided Drain Peritoneal 07/10/2021 Vick Boss MD [facility] RAD CT SCAN LAB VALUES: Laboratory Data: Lab Results Component Value Date WBC 9.4 09/23/2022 HGB 13.1 (L) 09/23/2022 HCT 39.5 (L) 09/23/2022 MCV 104.8 (H) 09/23/2022 ASSESSMENT AND PLAN: Tim Mera is a 71 y.o. male with a history of complete heart block s/p dual chamber permanent pacemaker April 2017 at [facility] course complicated by both pericardial effusion with [...] completed. Vini Lucero MD Cardiac Electrophysiology Fellow [facility] Pager [phone] 09/23/2022 I met with the patient today [...] in agreement. Dr. Dylan Story, electrophysiology attending ([id number]) documented in this encounter Miscellaneous Notes * Care Management Discharge - Tim Casillas RN - 09/24/2022 11:30 AM EDT CARE MANAGEMENT FINAL DISCHARGE NOTE Chart reviewed, care reviewed with primary team and at interdisciplinary rounds. Patient is medically ready for discharge to [facility]. Needs for Transition of Care: Plan for discharge is: Penitentiary Facility / [facility]ing Outpatient Agency/Support Group Needs: None Agency Referrals & Follow-up Care: Contact information for follow-up [facility] [address] [place] [address] Transportation: ambulance Ambulance Finance Conversation Completed: 09/24/2022 Spoke to: Radha Chand SPECIAL ORDER JEWELER at accepting facility Verbalized Understanding: Yes Functional [...] Operative Note Patient Name: Tim Mera : [id number] MR#: [id number] Case Date: 09/23/2022 Surgeon: Surgeon(s) and Role: [...] AM EDT Hospital Encounter [place] [address] Arrived Scheduled Orders Name Type Priority Associated [...] who have questions please contact the health managed care director that requested your imaging first. ? Electronically signed by: Denilson Puentes MD, [facility] ([phone]), at 09/24/2022 8:47 AM Narrative 09/24/2022 8:47 [...] patients who have questions please contactthe health managed care director that requested your imaging first. Electronically signed by: Denilson Puentes MD, [facility]([phone]), at 09/24/2022 8:47 AM Dylan Story MD IMG DX ORDERABLES * EKG 12 Lead (09/23/2022 5:18 PM EDT) Ventricular rate 74 BPM MUSE SYSTEM Atrial Rate 74 BPM MUSE SYSTEM P-R Interval 168 ms MUSE SYSTEM QRS Duration 164 ms MUSE SYSTEM Q-T Interval 458 ms MUSE SYSTEM QTC Calculated (Bezet) 508 ms MUSE SYSTEM Calculated P [place] 13 degrees MUSE SYSTEM Calculated R [place] -72 degrees MUSE SYSTEM Calculated T [place] 91 degrees MUSE SYSTEM INTERPRETATION Atrial-sense d ventricular- paced rhythm Abnormal ECG No previous ECGs available Confirmed by Bro Dasilva ([id number]) on 09/24/2022 9:15:33 AM MUSE SYSTEM 09/23/2022 [...] PATIENT NAME: Tim Mera PATIENT : 1950 PROCUREMENT AGENT: Dylan Story MD FELLOW: Vini Lucero MD REFERRING PROVIDER: GIRISH Rai PROCEDURE DATE: 09/23/2022 PATIENT HISTORY: Mr. Mera is a 71 year old man with a history of complete heart block status post dual chamber [employer] pacemaker in 2018 with course complicated [...] the entire procedure. LEAD AND GENERATOR DATA: Smelter Charger Model # Serial # Generator (New) [employer] L311 [id number] Atrial Lead (New) [employer] 7841 [id number] RV Lead (new) [employer] 7842 [id number] REMOVED GENERATOR AND CAPPED ATRIAL LEAD: Smelter Charger Model # Serial # Generator (Explanted) [employer] L111 [id number] Atrial Lead (Capped) [employer] 3830 [id number] ?? Ventricular lead (capped) Control[employer] 7742 [id number] PACE/SENSE DATA: Sensed wave (mV) Threshold (V) [...] with new A and V leads (cpt 77929) Dylan Story MD S Cardiac Electrophysiology 09/24/2022 1:57 PM Procedure Note Dylan Story MD - 09/27/2022 Images from the original note were not included. PACEMAKER GENERATOR CHANGE AND REVISION OF RA AND RV LEADS PATIENT NAME: Tim Mera PATIENT : 1950 PROCUREMENT AGENT: Dylan Story MD FELLOW: Vini Lucero MD REFERRING PROVIDER: GIRISH Rai PROCEDURE DATE: 09/23/2022 PATIENT HISTORY: Mr. Mera is a 71 year old man with a history of complete heart blockstatus post dual chamber [employer] pacemaker in 2018 with coursecomplicated by [...] the entire procedure. LEAD AND GENERATOR DATA: Smelter Charger Model # Serial # Generator (New) [employer] L311 [id number] Atrial Lead (New) [employer] 7841 [id number] RV Lead (new) [employer] 7842 [id number] REMOVED GENERATOR AND CAPPED ATRIAL LEAD: Smelter Charger Model # Serial # Generator (Explanted) [employer] L111 [id number] Atrial Lead (Capped) [employer] 3830 [id number] Ventricular lead (capped) [employer]Scan 7742 789453 PACE/SENSE DATA: Sensed wave (mV) Threshold (V) [...] pacemaker with new A and V leads(cpt 39710) Dylan Story MD S Cardiac Electrophysiology 09/24/2022 1:57 PM Dylan Story MD EP PROCEDURE ORDERAB LES * (ABNORMAL) Differential, Automated (09/23/2022 12:05 PM EDT) Neutrophil % 62.1 % [facility] Neutrophil Absolute 5.82 1.70 - 6.10 x10(3)/mc L [facility] Lymph % 22.3 % [facility] Lymphocytes Abs 2.1 0.9 - 3.2 x10(3)/mc L [facility] Monocyte % 11.8 % [facility] Monocyte Abs 1.1(H) 0.3 - 0.9 x10(3)/mc L [facility] Eos % 2.1 % [facility] Eosinophils Abs 0.2 0.0 - 0.4 x10(3)/mc L [facility] Basophil % 1.1 % [facility] Baso Absolute 0.1 0.0 - 0.1 x10(3)/mc L [facility] Immature Gran % 0.60 % [facility] Comment: Immature granulocytes(IG's)percentage and absolute count will include metamyelocytes, myelocytes, and promyelocytes. Blood smears from CBCs yielding IG's will be scanned manually for concordance. If this scan disagrees with the automated IG or if promyelocytes are noted, a manual differential will be performed. Immature Gran Absolute 0.06(H) 0.00 - 0.04 x10(3)/mc L [facility] Blood 09/23/2022 12:0 5 PM EDT 09/23/2022 12:25 PM EDT Narrative Resulting Agency Comment Spec In Lab Dylan Story MD HEMATOLOGY ORDERABLE S Performing Organization Address City/[facility]/ZIP Co de Phone Number [facility] [place] [address] * (ABNORMAL) Hemogram (09/23/2022 12:05 PM EDT) White Blood Cell 9.4 4.0 - 9.5 x10(3)/[facility] Red Blood Cell 3.77(L) 4.58 - 5.54 x10(6)/[facility] Hemoglobin 13.1(L) 13.7 - 16.5 g/dL [facility] Hematocrit 39.5(L) 40.5 - 48.5 % [facility] Mean Cell Volume 104.8(H) 82.9 - 93.1 fL [facility] Mean Cell Hemoglobin 34.7(H) 27.5 - 32.1 pg [facility] Mean Cell Hemoglobin Concentration 33.2 32.0 - 35.7 g/dL [facility] Platelet 276 145 - 357 x10(3)/mc L [facility] RDW Standard Deviation 47.7(H) 36.0 - 45.0 fL [facility] RDW coefficient of variation 12.3 11.4 - 13.8 % [facility] Mean Platelet Volume 10.4 7.6 - 12.9 fL [facility] NRBC% auto 0.0 % [facility] NRBC Absolute 0.000 0.000 - 0.000 x10(3)/mc L [facility] Blood 09/23/2022 12:0 5 PM EDT 09/23/2022 12:25 PM EDT Narrative Resulting Agency Comment Spec In Lab Dylan Story MD HEMATOLOGY ORDERABLE S Performing Organization Address City/[facility]/ZIP Co de Phone Number [facility] [place] [address] * (ABNORMAL) Basic Metabolic Panel (non-fasting) (09/23/2022 12:05 PM EDT) Glucose 106 65 - 199 mg/dL [facility] Comment:Diabetes: >=200 mg/d L plus symptoms Blood Urea Nitrogen 8(L) 10 - 20 mg/dL [facility] Creatinine 0.58(L) 0.80 - 1.50 mg/dL [facility] Sodium 130(L) 135 - 145 mmol/L [facility] Potassium 5.0 3.5 - 5.0 mmol/L [facility] Comment: Please note: ??Patients with WBC >100,000 may have falsely elevated Potassium levels. ??For accurate Potassium quantification in these patients send serum separator tube (gold top) for subsequent determinations. ??Contact the Clinical Chemistry Laboratory if there are any questions. Chloride 95(L) 98 - 107 mmol/L [facility] Carbon Dioxide 25 22 - 31 mmol/L [facility] Anion Gap 10 5 - 15 mmol/L [facility] Calcium 9.3 8.5 - 10.5 mg/dL [facility] Est Glomerular Filtration Rate 104 >=60 mL/min/1. 73 m?? [facility] Comment: This patient's estimated GFR was [...] In Lab Dylan Story MD CHEMISTRY ORDERABLES [facility] [place] [address] documented in this encounter Visit Diagnoses Diagnosis Complete heart block- Primary Atrioventricular block, complete Pacemaker at end of battery life Fitting and adjustment of cardiac pacemaker Pacemaker battery depletion Fitting and adjustment of cardiac pacemaker AV block Atrioventricular block, unspecified Complete heart block Atrioventricular block, complete Pacemaker - dual lead [employer] pacemaker Cardiac pacemaker in situ Pacemaker [...] Given 09/23/2022 2:11 PM EDT 400 mg vjjlls-ucesnvhn-rhoaciy DR (Creon 24) 24,000-76,000 -120,000 unit per [...] 1411 (Given - Provider: Vini Lucero MD) vgjpxw-ayrrfadm-adcxxik DR ([place] 24) 24,000-76,000 -120,000 unit per [...] Routine documented in this encounter Care Teams Marriage And Family Teacher Relationship Specialty Start Date End Date Katia Stone PA [address] [place] [id number] PCP - General General Internal Medicine 11/10/18 documented as of this encounter
--- OUTSIDE RECORDS SUMMARY | 2023-10-13 22:28 | XMS_ITS | Encounter Summary ---
Author Organization [facility] [place] [address] Care Team Providers Care Stack Yield Engineer Name Role Phone Katia Stone Primary Care Provider Reason for Visit * Reason Onset Date Comments Other 09/24/2022 Cardiac Device I mplant Teaching/Education Encounter Details Date Type Department Care Team (Late st Contact Info) Description 09/24/2022 Notes Only Cardiology at [address] [address] Magi Lowery Other (Cardiac Device Implant Teaching/Education) Social History Tobacco Use Types Packs/Day Years Used Date Smoking Tobacco: Never Smokeless Tobacco: Never Alcohol Use Standard Drinks/Week Comments Yes 14 (1 standard drink = 0.6 oz pu re alcohol) [facility] Inpatient Questions Answer Date Recorded Does Anyone [...] to call the Cardiac Device Clinic at [phone] with any questions. Plan: Post op check: [...] AM EDT Hospital Encounter Non-Invasive [place] [address] Arrived documented as of this encounter Visit Diagnoses Not on filedocumented in this encounter Care Teams Stack Yield Engineer Relationship Specialty Start Date End Date Katia Stone PA [address] [facility] [place] [facility] [place] [address] PCP - General General Internal Medicine 11/10/18 documented as of this encounter
--- OUTSIDE RECORDS SUMMARY | 2023-10-13 22:28 | XMS_ITS | Encounter Summary ---
Author Organization [facility] Address [facility] [place] [address] Care Team Providers Care Experimental Mechanic Electrical Name Role Phone Katia Stone Primary Care Provider Encounter Details Date Type Department Care Team (Latest Contact Info) Description 08/13/2022 10:00 AM EDT - 08/13/2022 11:59 PM EDT Hospital Encounter [place] [address] Discharge Disposition: Home Social History Tobacco Use [...] AM EDT Hospital Encounter [place] [address] Arrived documented as of this encounter Procedures [...] on filedocumented in this encounter Care Teams Experimental Mechanic Electrical Relationship Specialty Start Date End Date Katia Stone PA [address] [place] [address] PCP - General General Internal Medicine 11/10/18 documented as of this encounter
--- OUTSIDE RECORDS SUMMARY | 2023-10-13 22:28 | XMS_ITS | Encounter Summary ---
Author Organization [facility] Address [facility] [place] [address] Care Team Providers Care Director Of Casework Department Name Role Phone Katia Stone Primary Care Provider [phone] Encounter Details Date Type Department Care Team (Late st Contact Info) Description 07/22/2022 Orders Only Cardiology at [address] [phone] Humberto Ashraf PA [facility] [place] [address] Social History Tobacco Use Types Packs/Day Years Used Date Smoking Tobacco: Never Assessed Sex and Gender Information Value Date Recorded Sex Assigned at Not on file Gender Identity Not on file Sexual Orientation Not on file documented as of this encounter Progress Notes * Humberto Ashraf PA - 07/22/2022 3:02 PM EDT Cardiac Electrophysiology 71yo man with hx of CHB, s/p dual lead [employer] pacemaker implant implanted 04/30/2017, complicated by pericardial effusion with tamponade requiring RA lead reposition on 05/16/2020. RA lead function has continued to deteriorate with significantly elevated pacing threshold. His device has now tripped to DIONICIO on 07/10/2022. Dr. Story evaluated her device on 07/03/2022 at [facility] clinic visit and reviewed risk/benefit of PG [...] AM EDT Hospital Encounter Non-[place] [address] Arrived documented as of this encounter Visit Diagnoses Not on filedocumented in this encounter Care Teams Director Of Casework Department Relationship Specialty Start Date End Date Katia Stone PA [address] [place] [address] PCP - General General Internal Medicine 11/10/18 documented as of this encounter
--- OUTSIDE RECORDS SUMMARY | 2023-10-13 22:28 | XMS_ITS | Encounter Summary ---
Author Organization Formerly [facility] Address [facility] [place] [address] Care Team Providers Care Housing Grant Analyst Name Role Phone Katia Stone Primary Care Provider [phone] Encounter Details Date Type Department Care Team (Late st Contact Info) Description 09/11/2022 Orders Only Cardiology at [address] [phone] Dylan Story MD [facility] [place] [address] Pacemaker battery depletion; AV block Social History [...] AM EDT Hospital Encounter Non[place] [phone] Arrived documented as of this encounter Results * (ABNORMAL) Basic Metabolic Panel (non-fasting) (09/23/2022 12:05 PM EDT) [facility] Glucose 106 65 - 199 mg/dL [facility] Comment:Diabetes: >=200 mg/d L plus symptoms Blood Urea Nitrogen 8(L) 10 - 20 mg/dL [facility] Creatinine 0.58(L) 0.80 - 1.50 mg/dL [facility] Sodium 130(L) 135 - 145 mmol/L [facility] Potassium 5.0 3.5 - 5.0 mmol/L [facility] Comment: Please note: ??Patients with WBC >100,000 may have falsely elevated Potassium levels. ??For accurate Potassium quantification in these patients send serum separator tube (gold top) for subsequent determinations. ??Contact the Clinical Chemistry Laboratory if there are any questions. Chloride 95(L) 98 - 107 mmol/L [facility] Carbon Dioxide 25 22 - 31 mmol/L [facility] Anion Gap 10 5 - 15 mmol/L [facility] Calcium 9.3 8.5 - 10.5 mg/dL [facility] Est Glomerular Filtration Rate 104 >=60 mL/min/1. 73 m?? [facility] Comment: This patient's estimated GFR was [...] Story MD CHEMISTRY ORDERABLES Performing Organization Address City/State/[facility] Co de Phone Number [facility] [place] [place] [address] documented in this encounter Visit Diagnoses Diagnosis Pacemaker battery depletion Fitting and adjustment of cardiac pacemaker AV block Atrioventricular block, unspecified documented in this encounter Care Teams Housing Grant Analyst Relationship Specialty Start Date End Date Katia Stone PA [address] [place] [phone] PCP - General General Internal Medicine 11/10/18 documented as of this encounter
--- OUTSIDE RECORDS SUMMARY | 2023-10-13 22:28 | XMS_ITS | Encounter Summary ---
Author Organization Formerly [facility] [place] [address] Care Team Providers Care Aquaculture Farm Manager Name Role Phone Katia Stone Primary Care Provider [phone] Reason for Visit * Reason Onset Date Comments Pre Procedure Call 09/11/2022 Encounter Details Date Type Department Care Team (Late st Contact Info) Description 09/11/2022 Telephone Cardiology at [address] [phone] Patsy Gaffney, RN Pre Procedure Call Social [...] Generator Replacement + Atrial Lead Replacement EP CASKET LINER COORDINATION CHECKLIST Patient Name: Tim Mera [facility] (instructions also to be faxed) Patient Performing Program Services Planner: Dylan Story Referring Provider: Humberto Ashraf Date of Procedure: 09/23/22 Arrival Time/ Case Time: 12:00 pm / 1:00 pm Check In Location: [employer] [facility] [facility] Desk 4W Date Patient was Called: 09/11/22 Procedure: Generator Replacement + New Atrial Lead Placement Company: [email or web address] Type: DC PCM Orders: Yes Lab Orders: [...] overnight , understands that they will need ems driver on day of discharge Notified pt that Webber catheter may be placed on day of procedure depending on type & duration of case. documented in this encounter Plan of Treatment Upcoming Encounters Date Type Department Care Team (Late st Contact Info) Description 11/06/2023 10:00 AM EDT Hospital Encounter Non-[place]vasive [place] [address] Arrived documented as of this encounter Visit Diagnoses Not on filedocumented in this encounter Care Teams Aquaculture Farm Manager Relationship Specialty Start Date End Date Katia Stone PA [address] [place] [phone] PCP - General General Internal Medicine 11/10/18 documented as of this encounter
--- OUTSIDE RECORDS SUMMARY | 2023-10-13 22:28 | XMS_ITS | Clinical Summary ---
Author Organization [facility] Address [facility] [place] [address] Care Team Providers Care Proposal Writer Name Role Phone Katia Stone Primary Care [...] Date Diagnosed Date Pacemaker - dual lead [employer] pacemake r 09/24/2022 Overview (09/24/2022): Lna Model # Serial # Generator (New) Siving Egil Kvaleberg [id number] Atrial Lead (New) Siving Egil K[employer] [id number] RV Lead Siving Egil Kvaleberg [id number] 09/23/2022 - RA lead fx and RV lead with insulation breach - both capped and abandoned with new atrial and ventricular leads Placed as well as PG replacement for DIONICIO Complete heart block 09/23/2022 Encounters Date Type Department Care Team Description 08/08/2023 10:00 AM EDT - 08/08/2023 11:59 PM EDT Hospital Encounter [place] [address] Discharge Disposition: Home from Last [...] AM EDT Hospital Encounter [place] [phone] Arrived Health Maintenance Due Date Last Done [...] series) 11/02/2023 Medical Devices Implanted Type Area Lna Device Identifier Shelf Expiration Date Model / Serial / Lot Bsx: [id number]: [id number] Implanted: by Dylan Story MD (Quantity not on file) Lead Heart [employer] 7841 / [id number] / Bsx: [id number]: [id number] Implanted: by Dylan Story MD (Quantity not on file) Lead Heart [employer] 7842 / [id number] / Bsx: [id number]: [id number]/2 [id number] Implanted: by Dylan Story MD (Quantity not on file) Pacemaker Chest Wall [employer] [id number] / [id number] / Procedures Procedure Name Priority Date/Time Associated Diagnosis Comments CARDIAC DEVICE CHECK - REMOTE Routine 09/11/2023 3:09 AM EDT from Last 3 Months Results * Cardiac Device Check - Remote (09/11/2023 3:09 AM EDT) Anatomical Region Laterality Modality Other 09/11/2023 3:09 AM EDT Ivan Mar MD IMPLANTABLE CARDIAC DEVICE from Last 3 Months Advance Directives * Attempt Cardiopulmonary Resuscitation - [...] full resusitation during periprocedureal period Care Teams Proposal Writer Relationship Specialty Start Date End Date Katia Stone PA [address] [facility] [place] [address] PCP - General General Internal Medicine 11/10/18
--- OUTSIDE RECORDS SUMMARY | 2023-10-13 22:28 | XMS_ITS | Encounter Summary ---
Author Organization Counts Include [address] Address [facility] [address] Care Team Providers Care Special Police Officer Name Role Phone Katia Stone Primary Care Provider [phone] Encounter Details Date Type Department Care Team (Latest Contact Info) Description 11/11/2022 10:00 AM EDT - 11/11/2022 11:59 PM EDT Hospital Encounter Non-Invasive [place] [address] Discharge Disposition: Home Social History Tobacco Use [...] AM EDT Hospital Encounter Non-Invasive [place] [address] Arrived documented as of this encounter Procedures [...] filedocumented in this encounter Care Teams Special Police Officer Relationship Specialty Start Date End Date Katia Stone PA [address] [place] [phone] PCP - General General Internal Medicine 11/10/18 documented as of this encounter
--- OUTSIDE RECORDS SUMMARY | 2023-10-13 22:29 | XMS_ITS | Encounter Summary ---
Author Organization Formerly [facility] [place] [address] Care Team Providers Care Dermatology Nurse Name Role Phone Katia Stone Primary Care Provider [phone] Encounter Details Date Type Department Care Team (Latest Contact Info) Description 06/26/2021 3:30 PM EDT Ancillary Procedure [facility] [place] [address] [facility] [place] [address] Gallbladder abscess Social History Tobacco Use Types [...] PRE-PROCEDURE NOTE: PCP: GIRISH Johnson Referring Provider: [facility] General Surgery: [place] [...] History was communicated by Dr. Price from [facility]. They are requesting [...] and left basilar pleural collection presenting to [facility] for ct guided abdominal and left pleural drian placement. Plan: Planned procedure: CT guided RUQ abdominal drain and left chest tube placement Labs to be performed day of procedure: Hemogram; INR; Coags (need to be faxed from [facility]) Sedation: Moderate (Conscious [...] AM EDT Hospital Encounter Non-[place] [address] Arrived documented as of this encounter Procedures Procedure Name Priority Date/Time Associated Diagnosis Comments FILM LIBRARY STORAGE ONLY CT ABDOMEN AND PELVIS Routine 06/26/2021 3:25 PM EDT documented in this encounter Results * Film Library- Storage Only CT Abdomen & Pelvis (06/26/2021 3:25 PM EDT) Narrative [facility] - 06/26/2021 3:25 PM EDT This exam is auto-finalizing. It's purpose is for storage only. Mykel Stern DO [facility] FILM LIBRARY ORD ERABLES [place], [place] documented in this encounter Visit Diagnoses Diagnosis Gallbladder abscess Acute cholecystitis documented in this encounter Care Teams Dermatology Nurse Relationship Specialty Start Date End Date Katia Stone PA [address] [place] [facility] [place] [phone] PCP - General General Internal Medicine 11/10/18 documented as of this encounter
--- OUTSIDE RECORDS SUMMARY | 2023-10-13 22:29 | XMS_ITS | Encounter Summary ---
[place] [address] Care Team Providers Care Cutting Tool Sharpener Name Role Phone Katia Stone Primary Care Provider [phone] Encounter Details Date Type Department Care Team (Late st Contact Info) Description 11/25/2019 Telephone Cardiology at [address] [phone] Gayla Ochoa, RN Social History Tobacco Use [...] is requesting acceptance of a referral to [facility] for Tim. States that Tim normally [...] AM EDT Hospital Encounter Non-Invasive [place] [address] Arrived documented as of this encounter Visit Diagnoses Not on filedocumented in this encounter Care Teams Cutting Tool Sharpener Relationship Specialty Start Date End Date Katia Stone PA [address] [place] [address] PCP - General General Internal Medicine 11/10/18 documented as of this encounter
== END 2023-10-13 22:23 | disposition home or self-care (01) ==
LOC: LBN 22:22
PROVIDERS: PCP Legal Medicine; Visit Provider Nurse Practitioner Gerontology
DX: E55.9 Vitamin D deficiency, unspecified (principal)
CPT/HCPCS: 80053; 82306; 83735

== ENCOUNTER 2023-12-15 10:28 | Inpatient (IN) | payer MEDICARE, MEDICAID, SELFPAY ==
[2023-12-15] VITALS (20 sets, daily range): BP systolic 86–140; BP diastolic 54–88; PULSE 59–66; RESP 13–25; TEMP 36.2–36.5; O2SAT 89–92
--- NOTE | 2023-12-15 | DI.RAD_ITS ---
Exam(s) XR KNEE RT 3V AP,LAT,MARY EXAM: XR KNEE RT 3V AP,LAT,MARY CLINICAL HISTORY: right knee pain after fall, pain/tenderness. TECHNIQUE: 2D digital imaging was performed. COMPARISON: No exams were available for comparison FINDINGS: 3 views No evidence of acute fracture. Small amount of increased joint fluid noted. There are moderate-adva nced tricompartmental degenerative changes. Vascular calcification noted. No osseous lesions. IMPRESSION: Degenerative changes. No obvious fractures. Small joint effusion. DATA REPOSITORY: RADIATION DOSE DELIVERED:
--- NOTE | 2023-12-15 10:15 | DI.CT_ITS ---
Exam(s) CT BRAIN NECK CTA EXAM: CT BRAIN NECK CTA CLINICAL HISTORY: RIGHT SIDED WEAKNESS. TECHNIQUE: Imaging Protocol: Axial CT angiography was performed with multi-slice acquisition and mu lti-planar and/or 3D reconstructions. CONTRAST MATERIAL: Intravenous: Omnipaque 350 contrast volume:70 mL COMPARISON: CT CT HEAD WO from 03/17/[address] HEAD - STROKE PROTOCOL from 12/15/2023 FINDINGS: CT Head W/O and W: Ventricles and Extra axial spaces: Normal in size and morphology for the patient's age. Hemorrhage: None. Cerebral parenchyma: There again seen areas of encephalomalacia in the right and left cerebellum. Th ere are areas of decreased attenuation in the white matter consistent with chronic microvascular isch emic disease. No acute mass effect. No acute territorial infarct is identified. Midline shift: None. Brainstem/Cerebellum: Normal. Calvarium: Normal. Visualized Paranasal sinuses/Mastoids: Clear. Soft Tissues: Unremarkable. Enhancement: Unremarkable. CTA Neck W: Common Carotid: Right: No dissection, occlusion or significant stenosis. Atherosclerotic calcification is present wi th less than 50 percent stenosis. Left: No dissection, occlusion or significant stenosis. The sclerotic calcification is present with less than 50 percent stenosis. External Carotid: Right: No occlusion or significant stenosis. Left: No occlusion or significant stenosis. Internal Carotid: Right: There is atherosclerotic calcification particularly proximally. There is less than 50 percen t stenosis. No evidence of dissection or aneurysm. Left: Atherosclerotic calcification and thrombus is seen proximally resulting in approximately 50 pe rcent stenosis at the origin of the left internal carotid artery. No dissection or aneurysm is prese nt. Vertebral Artery: Right: Atherosclerotic calcification is seen at the origin with 50-75 percent stenosis resulting. N o occlusion or aneurysm. Left: Atherosclerotic calcification is seen at the origin with less than 50 percent stenosis. Lung Apices: The ascending thoracic aorta measures 5 x 4.4 cm. Atherosclerotic calcification is pres ent. No focal infiltrates are seen in the lung apices. Pleural calcification is seen in the right l debbie apex. Bones: Within normal limits for the patient's age. Multilevel degenerative changes are seen throughou t the cervical spine. Soft Tissues: There is a battery pack in the soft tissues in the left anterior chest wall. Thyroid gland: Unremarkable. CTA Brain W: Internal Carotid Arteries: Mild atherosclerosis is seen in the left internal carotid arteries. No an eurysm, significant stenosis or occlusion is seen. Anterior Cerebral Arteries: Right: No aneurysm, occlusion or significant stenosis. The right A1 segment is absent. The right an terior cerebral artery receives its flow via the anterior communicating artery. Left: No aneurysm, occlusion or significant stenosis. Middle Cerebral Arteries: Right: No aneurysm, occlusion or significant stenosis. Left: No aneurysm, occlusion or significant stenosis. Posterior Cerebral Arteries: Right: No aneurysm, occlusion or significant stenosis. Left: No aneurysm, occlusion or significant stenosis. Vertebral Arteries: Right: No aneurysm, occlusion or significant stenosis. Left: No aneurysm, occlusion or significant stenosis. Basilar Artery: No aneurysm, occlusion or significant stenosis. IMPRESSION: 1. No large vessel occlusion or significant stenosis on the CT angiography of the head. 2. No acute intracranial process. 3. Atherosclerotic calcification is seen in the right and left common carotid arteries and the right internal carotid artery resulting in less than 50 percent stenosis. 4. Atherosclerotic calcification is seen in the proximal left internal carotid artery resulting in ap proximately 50 percent stenosis. 5. Atherosclerotic calcification is seen at the origin of the right vertebral artery resulting in 50- 75 percent stenosis. 6. The ascending thoracic aorta measures 5 x 4.4 cm. RADIATION DOSE DELIVERED: 1,675.45mGy.cm Total DLP DATA REPOSITORY: All CT scans at this facility are submitted to the National Radiology Data Registry (NRDR) Dose Index Registry (DIR) with the [employer] (ACR). RADIATION OPTIMIZATION: All CT scans at this facility use at least one of these dose optimization te chniques: automated exposure control; mA and/or kV adjustment per patient size (includes targeted exa ms where dose is matched to clinical indication); or iterative reconstruction.
--- NOTE | 2023-12-15 10:15 | DI.CT_ITS ---
Exam(s) CT HEAD - STROKE PROTOCOL EXAM: CT HEAD - STROKE PROTOCOL CLINICAL HISTORY: WEAKNESS. TECHNIQUE: Imaging Protocol: Axial computed tomography images with coronal and sagittal reformatted images were created and reviewed COMPARISON: CT CT HEAD WO from 03/17/2022 FINDINGS: Ventricles and Extra axial spaces: Normal in size and morphology for the patient's age. Hemorrhage: None. Cerebral parenchyma: Unchanged encephalomalacia involving the cerebellum, left greater than right. N o acute mass effect. No acute territorial infarct is seen. There are areas of decreased attenuation in the white matter most consistent with chronic microvascular ischemic disease. Midline shift: None. Brainstem/Cerebellum: Normal. Calvarium: Normal. Visualized Paranasal sinuses/Mastoids: Clear. Soft Tissues: Unremarkable. IMPRESSION: No acute intracranial process. RADIATION DOSE DELIVERED: 1,335.09mGy.cm Total DLP DATA REPOSITORY: All CT scans at this facility are submitted to the National Radiology Data Registry (NRDR) Dose Index Registry (DIR) with the [employer] (ACR). RADIATION OPTIMIZATION: All CT scans at this facility use at least one of these dose optimization te chniques: automated exposure control; mA and/or kV adjustment per patient size (includes targeted exa ms where dose is matched to clinical indication); or iterative reconstruction.
--- NOTE | 2023-12-15 10:15 | RT.EKG_ITS ---
APPROVED REPORT Exam: Resting ECG Reason for Exam: AMS Patient Location: E HR:85 bpm ECG Measurements Heart Rate 85 AXIS WI 195 P 46 QRSd 148 QRS -77 QT 462 T 74 QTc 481 Conclusion Sinus rhythm 85 paced no change from prior
[2023-12-15 10:44] LABS: Abs Immature Grans 0.08 10^3/uL (0.0-0.06); Absolute Basophil Count 0.09 10^3/uL (0.0-0.2); Absolute Eosinophil Count 0.17 10^3/uL (0.0-0.7); Absolute Monocyte Count 1.35 10^3/uL (0.1-0.8); Basophils % 0.6 %; Eosinophils % 1.1 %; HGB 13.3 g/dL (13.5-17.5); Immature Grans % 0.5 %; Lymphocytes % 11.8 %; MCH 33.3 pg (27.0-33.0); MCHC 32.4 % (32.0-36.0); MCV 103 fL (80-95); MPV 11.6 fL (8.0-11.0); Monocytes % 8.8 %; Neutrophils % 77.2 %; Platelet Count 193 10^3/uL (130-400); RBC 3.99 10^6/uL (4.36-5.78); RDW 12.8 % (11.8-14.1); RDW-SD 48.5 fL; WBC 15.29 10^3/uL (4.4-10.8)
[2023-12-15] MEDS: Normal Saline - Diluent 50 ML VIAL IJ (10:44)
[2023-12-15] MEDS: Omnipaque 350 MG/ML 100 ML BTL IJ (10:45)
[2023-12-15 11:02] LABS: ALT 19 U/L (16-63); AST 20 U/L (15-37); Albumin 3.2 g/dL (3.4-5.0); Alkaline Phosphatase 104 U/L (46-116); Anion Gap 5.3 mmol/L (3-11); BUN 12 mg/dL (7-18); Bilirubin, Total 0.36 mg/dL (0.2-1.0); CO2 34.7 mmol/L (21.0-32.0); CREATININE 0.8 mg/dL (0.70-1.30); Calcium 9.1 mg/dL (8.5-10.1); Chloride 98 mmol/L (98-107); Estimated GFR 93.45 (mL/min/1.73m2); Glucose 124 mg/dL (74-106); Magnesium 1.8 mg/dL (1.8-2.4); Potassium 4.3 mmol/L (3.5-5.1); Sodium 138 mmol/L (136-145); Total Protein 8.5 g/dL (6.4-8.2); Troponin I 14 ng/L (<or=76)
--- NOTE | 2023-12-15 11:08 | W.ED.GENAD ---
Discharge Plan Disposition Patient Disposition: Admit to [facility] Condition: Stable Discharge Details Chief Complaint: CVA/TIA Clinical Impression: Acute right-sided weakness, Leukocytosis Admit Date/Time: 12/15/23 13:07 Admit Provider: Tim Payton Attending Provider: Tim Payton Primary Care Provider: Monalisa Dong ED Provider: Jack Gutierrez Discharge Data Discharge Date/Time-TO BE ENTERED AT DEPARTURE: 12/15/23 14:03 HPI General Date/Time Provider Initiated Documentation: 12/15/23 10:50. Limitations to Documentation: no limitations. Information obtained by: patient. HPI Narrative: 73-year-old gentleman with past medical history of dementia, CHF, hypertension, CAD presents for evaluation of right-sided weakness. The patient presents via EMS from his nursing facility [facility]. They report that at 630 this morning, the patient fell out of bed. He was then turned to bed perhaps, this is unclear, but the patient was not noted to have right-sided deficit until later when they called 911 and sent to the emergency department. They think that the last known normal was last night. Patient says he is unable to move his right arm and right leg. He does not know when this started. He denies any headache or speech changes. He denies any numbness to his arm or his leg. He states that this is never happened before. Related Data Home Medications ?Medication ?Instructions ?Recorded ?Confirmed albuterol sulfate 90 mcg/actuation 2 inh inhalation TID 03/29/21 12/15/23 breath activated powder inhaler calcium carbonate 1,000 mg PO Q6H PRN 03/29/21 12/15/23 fluticasone propionate 50 1 spray intranasal BID 03/29/21 12/15/23 mcg/actuation nasal spray,suspension pantoprazole 40 mg tablet,delayed 40 mg PO DAILY 03/29/21 12/15/23 release polyethylene glycol 3350 17 gram 17 g PO DAILY PRN 03/29/21 12/15/23 oral powder packet (Miralax) sennosides 8.6 mg-docusate sodium 2 tab-cap PO DAILY 03/29/21 12/15/23 50 mg tablet (Senexon-S) vitamin B complex (Ultra B-100 1 tab PO DAILY 03/29/21 12/15/23 Complex ER tablet,extended release) metoprolol succinate 200 mg 200 mg PO DAILY 05/02/21 12/15/23 tablet,extended release 24 hr melatonin 3 mg capsule 3 mg PO HS 05/10/21 12/15/23 beer 1 unit PO 1XD PRN 10/18/21 12/15/23 colestipol 1 gram tablet 2 g PO BID 12/06/21 12/15/23 fentanyl 12 mcg/hr transdermal 1 patch transdermal Q72H 04/29/22 12/15/23 patch dextromethorphan-guaifenesin 10 10 ml PO Q4H PRN 08/28/22 12/15/23 mg-100 mg/5 mL oral liquid (Tussin DM) magnesium gluconate 500 mg tablet 500 mg PO BID 08/28/22 12/15/23 benzonatate 100 mg capsule 100 mg PO BID 03/27/23 12/15/23 loratadine 10 mg tablet 10 mg PO DAILY 03/27/23 12/15/23 fluticasone fur. 200 mcg-umeclid 1 inh inhalation DAILY 06/18/23 12/15/23 62.5 mcg-vilant 25 mcg inhalat.powder (Trelegy Ellipta) ipratropium 0.5 mg-albuterol 3 mg 3 ml inhalation Q12H PRN PRN 06/18/23 12/15/23 (2.5 mg base)/3 mL nebulization soln itwawx-hegwcsxk-cgoqksa 1 cap PO TID 06/18/23 12/15/23 5,000-17,000-24,000 unit capsule, delayed rel (Zenpep) memantine 5 mg tablet 5 mg PO BID 06/18/23 12/15/23 sertraline 25 mg tablet 50 mg PO DAILY 06/18/23 12/15/23 dupilumab 300 mg/2 mL subcutaneous 300 mg subcut Q2W 07/10/23 12/15/23 pen injector (Dupixent) ibuprofen 200 mg tablet 200 mg PO BID PRN 07/10/23 12/15/23 cholecalciferol (vitamin D3) 125 5,000 unit PO .weekly 08/11/23 12/15/23 mcg (5,000 unit) tablet (Vitamin D3) furosemide 20 mg tablet (Lasix) 20 mg PO BID #60 tabs 08/18/23 12/15/23 acetaminophen 500 mg tablet 1,000 mg (2 x 500 mg) PO Q12H #0 08/19/23 12/15/23 (Tylenol Extra Strength) tabs spironolactone 25 mg tablet 50 mg (2 x 25 mg) PO DAILY #0 tabs 08/19/23 12/15/23 sodium chloride 1,000 mg soluble 1,000 mg PO DAILY 12/15/23 12/15/23 tablet Previous Rx's ?Medication ?Instructions ?Recorded furosemide 20 mg tablet (Lasix) 20 mg PO BID #60 tabs 08/18/23 acetaminophen 500 mg tablet 1,000 mg (2 x 500 mg) PO Q12H #0 08/19/23 (Tylenol Extra Strength) tabs spironolactone 25 mg tablet 50 mg (2 x 25 mg) PO DAILY #0 tabs 08/19/23 Allergies Allergy/AdvReac Type Severity Reaction Status Date / Time No Known Allergies Allergy Verified 08/16/23 19:43 General Stated Complaint: CVA/TIA INDY: 2 Exam Narrative Exam Narrative: Review of Systems: All systems reviewed & are unremarkable except as noted in HPI and below Well-developed, no acute distress NCAT No facial asymmetry, speech clear and coherent No dysarthria or aphasia PERRL, normal conjunctiva RRR no murmur Unlabored respiratory effort clear bilaterally Reports complete hemiparesis of the right upper and lower extremities, but the patient was observed to spontaneously move his right upper extremity. He also will hold it up to prevent it from Sensation intact in the right lower extremity though he will not move Course Vital Signs Vital signs: Vital Signs Temperature 36.5 C 12/15/23 10:48 Pulse 66 12/15/23 10:48 Respiratory Rate 22 12/15/23 10:48 Blood Pressure 111/88 12/15/23 10:48 Pulse Oximetry 92 12/15/23 10:48 Temperature 36.5 C 12/15/23 10:48 Temperature Source Temporal Artery Scan 12/15/23 10:48 Pulse 63 12/15/23 11:01 Pulse 64 12/15/23 11:01 Respiratory Rate 19 12/15/23 11:01 Respiratory Effort Normal, Non-Labored 12/15/23 10:59 Blood Pressure 132/73 12/15/23 11:01 Blood Pressure Mean 93 12/15/23 11:01 Blood Pressure Position Supine 12/15/23 10:48 Pulse Oximetry 90 L 12/15/23 11:00 Oxygen Delivery Method Room Air 12/15/23 10:48 Oxygen Flow Rate 0 12/15/23 10:48 Pain Level 8 12/15/23 10:48 Comment chronic pain, fent patch on per MAR from [facility] 12/15/23 10:48 Lab/Test Results Lab/Test Results: Laboratory Tests Range/Units 12/15/23 10:34 WBC (4.4-10.8) 10^3/uL 15.29 H RBC (4.36-5.78) 10^6/uL 3.99 L Hgb (13.5-17.5) g/dL 13.3 L Hct (40.0-50.0) % 41.0 MCV (80-95) fL 103 H MCH (27.0-33.0) pg 33.3 H MCHC (32.0-36.0) % 32.4 RDW (11.8-14.1) % 12.8 Plt Count (130-400) 10^3/uL 193 MPV (8.0-11.0) fL 11.6 H Immature Gran % % 0.5 Neutrophils % % 77.2 Lymphocytes % % 11.8 Monocytes % % 8.8 Eosinophils % % 1.1 Basophils % % 0.6 Nucleated RBC % (0.0-0.3) % 0.0 Absolute Neutrophils (1.2-6.7) 10^3/uL 11.80 H Absolute Lymphocytes (1.2-3.4) 10^3/uL 1.80 Absolute Monocytes (0.1-0.8) 10^3/uL 1.35 H Absolute Eosinophils (0.0-0.7) 10^3/uL 0.17 Absolute Basophils (0.0-0.2) 10^3/uL 0.09 Sodium (136-145) mmol/L 138 Potassium (3.5-5.1) mmol/L 4.3 Chloride (98-107) mmol/L 98 Carbon Dioxide (21.0-32.0) mmol/L 34.7 H Anion Gap (3-11) mmol/L 5.3 BUN (7-18) mg/dL 12 Creatinine (0.70-1.30) mg/dL 0.8 Est GFR (CKD-EPI 2020) (mL/min/1.73m2) 93.45 Glucose (74-106) mg/dL 124 H Calcium (8.5-10.1) mg/dL 9.1 Magnesium (1.8-2.4) mg/dL 1.8 Total Bilirubin (0.2-1.0) mg/dL 0.36 AST (15-37) U/L 20 ALT (16-63) U/L 19 Alkaline Phosphatase (46-116) U/L 104 Troponin I (<or=76) ng/L 14 Total Protein (6.4-8.2) g/dL 8.5 H Albumin (3.4-5.0) g/dL 3.2 L Medical Decision Making Emergent evaluation of acute neurologic deficits. The patient is reporting right-sided paresis, but he is able to move his right arm. He does not seem to be within the window for an acute stroke code or thrombolytics as it seems that his last known normal was definitively yesterday. Unclear this morning or how he was functioning. The patient reports that he fell out of bed because his mattress was not properly aligned. I we will obtain CTA to evaluate for acute stroke process. Check labs to evaluate for infectious etiology. He does wear fentanyl patch, but he is not exhibiting any other signs or symptoms of opiate overdose. I would think that if he was having a stroke process that would cause complete right upper and lower extremity hemiparesis, this would be consistent with a large MCA distribution, but his mental status speech and face are not consistent with that. Unclear cause as his neurosymptoms are not specific or consistent. 1110 On reassessment, the patient continues to lack facial asymmetry or speech deficit, he has noted to seem to have normal strength in the right upper extremity though he refuses to move it and says that he cannot when he is. I have yet to observe any movement in the right lower extremity. He definitely feel sensation there. When attempting to test his sensation he kicked my hand away with his left leg. Lab work reviewed. Mild leukocytosis of 15, no anemia. The lab work was not indicate significant electrolyte derangement. Serial troponins are flat, unlikely to be ACS. Urinalysis is not infected. CT imaging of his brain was obtained and radiology report reviewed, there is no acute stroke process or large vessel occlusion noted. Unfortunately I am not able to get an emergent MRI secondary to his pacemaker placement. Given that he is still having ongoing symptoms, I do not feel comfortable with discharging him, but I do not have an immediate late obvious explanation or etiology for his symptoms. I considered trauma given that he fell and hit the bed, but x-ray imaging of the shoulder pelvis and right hip are all unremarkable for fractures that would be causing him to limit his movement. I also of low suspicion for epidural or other spinal cord etiology for his symptoms given the lack of significant trauma, fever history of IVDU. At this time will admit to hospital medicine for further workup. Quality:SDOH Health Related Social Needs: No Data to Display [facility] All Active Problems (Updated 12/15/23 @ 17:07 by Jack Gutierrez MD) Leukocytosis (Acute) Acute right-sided weakness (Acute) Acute right-sided weakness (Acute) Dementia (Chronic) Hyponatremia (Chronic) CHF (congestive heart failure) (Chronic) Chronic hyponatremia (Acute) Shortness of breath (Acute) Nail dystrophy (Acute) Restrictive lung disease (Acute) Asthma (Chronic) Shortness of breath (Acute) Sebaceous cyst (Acute) Nasal obstruction (Acute) External nasal lesion (Acute) Hypertension (Chronic) Left lower lobe pneumonia (Acute) Bloating (Acute) Heme positive stool (Acute) Infected sebaceous cyst of skin (Acute) Trapped lung (Acute) Sacroiliitis (Acute) Depression (Chronic) Lymphedema (Acute) HTN (hypertension) with goal to be determined (Chronic) Obesity (Chronic) DNR (do not resuscitate) (Acute) Presence of cardiac pacemaker (Chronic) [employer] PPM MRI model L111 Serial # [id number] placed dual chamber 04/30/2017 for CHB at [facility]. 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 Most likely this is inflammatory tissue and not actually fluid. pt has had multiple taps. He was on a prolonged course of IV abx and has failed to resolve. This is a sequelae of this pericardial tamponade following disruption of his RA lead from pacemaker insertion. Hyponatremia, hypo-osmolarity, or hypo-osmolar hyponatremia Surgical History S/P laparoscopic cholecystectomy History of permanent cardiac pacemaker placement with subsequent repositioning Family History Son Alcohol use disorder Social History Smoking/Tobacco Use Status: Former Tobacco Use tobacco type: smokeless tobacco Smoking risk assessment performed?: Yes Alcohol Intake: current Alcohol Intake frequency: 0-2 drinks per day Alcohol type: beer Drug use: Never Substance use type: does not use Housing: retirement Pets and animals: No Do you feel safe at home: Yes Do you feel safe in your relationship?: Yes Additional Social history: 2 sons cirrhosis/EtOH, has been in [employer]
--- NOTE | 2023-12-15 11:11 | DI.RAD_ITS ---
Exam(s) XR SHOULDER RT COMPLETE 2+V EXAM: XR SHOULDER RT COMPLETE 2+V CLINICAL HISTORY: Right shoulder pain. TECHNIQUE: 2D digital imaging was performed of the right shoulder. Four images were obtained. AP, Grashey, Y-view and axillary views were obtained. COMPARISON: CR XR CHEST 2V PA LATERAL from 12/14/2021 FINDINGS: BONES: No acute fracture is present. No bony destructive lesion is seen. JOINTS: No dislocation present. Degenerative changes are seen in the shoulder. SOFT TISSUE: Pleural calcification is seen in the right hemithorax. This can be seen with prior asbe stos exposure. Vascular calcifications are present. IMPRESSION: No acute fracture or dislocation. DATA REPOSITORY: RADIATION DOSE DELIVERED:
--- NOTE | 2023-12-15 11:11 | DI.RAD_ITS ---
Exam(s) XR HIP PELVIS ADULT BL EXAM: XR HIP PELVIS ADULT BL CLINICAL HISTORY: Fall. TECHNIQUE: 2D digital imaging was performed of the pelvis and bilateral hips. Six images were obtai cass. AP pelvis and lateral views of both hips were obtained. COMPARISON: No exams were available for comparison FINDINGS: There is contrast seen in the urinary bladder from the patient's CT examination. The bladder wall ap pears mildly trabeculated which can be seen with chronic bladder outlet obstruction. Overlying monit oring equipment is present. BONES: No acute fracture is present. No bony destructive lesion is seen. JOINTS: No dislocation present. Age-appropriate degenerative changes are present. SOFT TISSUE: Atherosclerotic calcification is present. IMPRESSION: No acute fracture or dislocation. DATA REPOSITORY: RADIATION DOSE DELIVERED:
[2023-12-15 11:30] LABS: Bilirubin Negative (Negative); Blood Negative (Negative); Clarity Clear (Clear); Glucose Negative (Negative); Ketones Negative (Negative); Leukocyte Esterase Negative (Negative); Nitrite Negative (Negative); Urobilinogen 0.2 mg/dL (Up to 0.2); pH 6.5 (5-8)
[2023-12-15 12:03] LABS: Troponin I 14 ng/L (<or=76)
--- OUTSIDE RECORDS SUMMARY | 2023-12-15 13:00 | XMS_ITS | Encounter Summary ---
Author Organization [facility] Address [address] [place] [address] Care Team Providers Care General Studies Program Chair Name Role Phone Katia Stone PA-C Primary Care Provider +1- [phone] Reason for Visit * (Routine/Next Available) - New Request Specialty Diagnoses / Procedures Referred By Contac t Referred To Contact Procedures CT OUTSIDE IMAGES BODY Unknown, Provider, Referral ID Status Reason Start Date Expiration Date V isits Requested Visits Authorized [id number] New Request 06/20/2021 1 1 Encounter Details Date Type Department Care Team (Latest Contact Info) Description 06/20/2021 15:36 EDT - 06/20/2021 23:59 EDT Hospital Encounter [facility] Secondary Reads [place] Discharge Disposition: Home or [...] filedocumented in this encounter Care Teams General Studies Program Chair Relationship Specialty Start Date End Date Katia Stone, PABijalC [address] [place] [phone] PCP - General 05/02/17 documented as of this encounter
--- OUTSIDE RECORDS SUMMARY | 2023-12-15 13:00 | XMS_ITS | Encounter Summary ---
Author Organization [facility] Address [address] [place] [address] Care Team Providers Care Flavor Room Worker Name Role Phone Katia Stone PA-C Primary Care Provider +1- [phone] Encounter Details Date Type Department Care Team (Late st Contact Info) Description 09/26/2020 Results Only [facility] [phone] Rowan Abad, TAIWO [address] [place] [id number] Social History Tobacco Use Types Packs/Day [...] 1.8 - 2.4 mg/dl 09/26/2020 15:12 EDT [facility] 09/26/2020 14:3 3 EDT 09/26/2020 14:54 EDT Rowan Abad NP CHEMISTRY & BLOOD GA S ORDERABLES [facility] [address] [place] [address] * (ABNORMAL) BASIC METABOLIC PANEL (BMP) (09/26/2020 14:33 EDT) Sodium 131(L) 136 - 145 mEq/L 09/26/2020 15:12 EDT [facility] Potassium 4.2 3.5 - 5.1 mEq/L 09/26/2020 15:12 [facility] Chloride 96 96 - 107 mEq/L 09/26/2020 15:12 EDT [facility] CO2 Total 30.9 21 - 32 mEq/L 09/26/2020 15:12 T [facility] Anion Gap 3.1 mEq/L 09/26/2020 15:12 [facility] BUN 10 7 - 25 mg/dl 09/26/2020 15:12 [facility] Creatinine 0.82 0.70 - 1.30 mg/dl 09/26/2020 15:12 [facility] Estimated GFR >60 >60 09/26/2020 15:12 [facility] Comment: EGFR UNITS: mL/min/1.73 m 2 CKD-EPI Equation used to calculate. Glucose 111(H) 74 - 106 mg/dl 09/26/2020 15:12 [facility] Calcium 8.6 8.5 - 10.1 mg/dl 09/26/2020 15:12 [facility] 09/26/2020 14:3 3 EDT 09/26/2020 14:54 EDT Rowan Abad NP CHEMISTRY & BLOOD GA S ORDERABLES Performing Organization Address City/State/[facility] Co de Phone Number [facility] [address] [place] [address] * (ABNORMAL) COMPLETE BLOOD COUNT AND DIFFERENTIAL (09/26/2020 14:33 EDT) WBC 7.3 4.0 - 10.5 10 3/uL 09/26/2020 15:08 [facility] RBC 3.30(L) 4.70 - 6.00 10 6/uL 09/26/2020 15:08 [facility] Hemoglobin 11.2(L) 13.5 - 18.0 g/dL 09/26/2020 15:08 [facility] HCT 32.0(L) 42.0 - 52.0 % 09/26/2020 15:08 [facility] MCV 97.0 78 - 100 fL 09/26/2020 15:08 [facility] MCH 33.9(H) 27 - 31 pg 09/26/2020 15:08 [facility] MCHC 35.0 32 - 37 g/dL 09/26/2020 15:08 [facility] RDW-CV - PMC 11.7 <14.7 % 09/26/2020 15:08 [facility] PLATELET COUNT - PMC 291 150 - 450 10 3/uL 09/26/2020 15:08 [facility] MPV 11.0 9.2 - 12.0 fL 09/26/2020 15:08 [facility] NEUTROPHILS % (AUTO) - PMC 59.3 % 09/26/2020 15:08 [facility] LYMPHOCYTES % (AUTO) - PMC 23.9 % 09/26/2020 15:08 [facility] MONOCYTES % (AUTO) - PMC 12.3 % 09/26/2020 15:08 [facility] EOSINOPHILS % (AUTO) - PMC 2.9 NOT ESTABLISHED % 09/26/2020 15:08 [facility] BASOPHILS % (AUTO) - PMC 1.0 % 09/26/2020 15:08 [facility] Immature Granulocyte % (Auto) 0.6 % 09/26/2020 15:08 [facility] NUCLEATED RBC % (AUTO) - PMC 0.0 % 09/26/2020 15:08 [facility] NEUTROPHILS # (AUTO) - PMC 4.3 1.5 - 6.6 10 3/uL 09/26/2020 15:08 [facility] LYMPHOCYTES # (AUTO) - PMC 1.7 1.0 - 3.5 10 3/uL 09/26/2020 15:08 [facility] MONOCYTES # (AUTO) - PMC 0.9 <1.0 10 3/uL 09/26/2020 15:08 [facility] EOSINOPHILS # (AUTO) - PMC 0.2 <0.7 10 3/uL 09/26/2020 15:08 [facility] BASOPHILS # (AUTO) - PMC 0.1 <0.1 10 3/uL 09/26/2020 15:08 [facility] Absolute Immature Granulocyte 0.04 <0.06 10 3/uL 09/26/2020 15:08 [facility] DIFFERENTIAL METHOD Auto Differential 09/26/2020 14:56 [facility] 09/26/2020 14:3 3 EDT 09/26/2020 14:54 EDT Rowan Abad MANAGER [employer] & [employer] PROBE ORDERABLES [facility] [address] [place] [address] documented in this encounter Visit Diagnoses Not on filedocumented in this encounter Care Teams Flavor Room Worker Relationship Specialty Start Date End Date Katia Stone, BELLAC [address] [place] [phone] PCP - General 05/02/17 documented as of this encounter
--- OUTSIDE RECORDS SUMMARY | 2023-12-15 13:00 | XMS_ITS | Encounter Summary ---
Author Organization [facility] Address [address] [place] [address] Care Team Providers Care Agricultural Research Engineer Name Role Phone Katia Stone PA-C Primary Care Provider +1- [phone] Encounter Details Date Type Department Care Team (Late st Contact Info) Description 08/18/2020 Results Only [facility] [address] [place] [id number] Junior Ray MD [address] [place] [address] Social History Tobacco Use Types [...] 138 136 - 145 mEq/L 08/18/2020 5:47 [facility] Potassium 3.3(L) 3.5 - 5.1 mEq/L 08/18/2020 5:47 [facility] Chloride 101 96 - 107 mEq/L 08/18/2020 5:47 [facility] CO2 Total 31.3 21 - 32 mEq/L 08/18/2020 5:47 [facility] Anion Gap 5.7 mEq/L 08/18/2020 5:47 [facility] BUN 9 7 - 25 mg/dl 08/18/2020 5:47 [facility] Creatinine 0.66(L) 0.70 - 1.30 mg/dl 08/18/2020 5:47 [facility] Estimated GFR >60 >60 08/18/2020 5:47 [facility] Comment: EGFR UNITS: mL/min/1.73 m 2 CKD-EPI Equation used to calculate. Glucose 86 74 - 106 mg/dl 08/18/2020 5:47 [facility] Calcium 8.0(L) 8.5 - 10.1 mg/dl 08/18/2020 5:47 [facility] 08/18/2020 5:15 EDT 08/18/2020 5:27 EDT Junior Ray MD CHEMISTRY & BLOOD G ORDERABLES Performing Organization Address City/[facility]/ZIP Co de Phone Number [facility] [address] [place] [address] * (ABNORMAL) COMPLETE BLOOD COUNT (08/18/2020 5:15 EDT) WBC 5.2 4.0 - 10.5 10 3/uL 08/18/2020 5:41 [facility] RBC 2.68(L) 4.70 - 6.00 10 6/uL 08/18/2020 5:41 [facility] Hemoglobin 9.4(L) 13.5 - 18.0 g/dL 08/18/2020 5:41 [facility] HCT 27.5(L) 42.0 - 52.0 % 08/18/2020 5:41 [facility] MCV 102.6(H) 78 - 100 fL 08/18/2020 5:41 [facility] MCH 35.1(H) 27 - 31 pg 08/18/2020 5:41 [facility] MCHC 34.2 32 - 37 g/dL 08/18/2020 5:41 [facility] RDW-CV - PMC 15.2(H) <14.7 % 08/18/2020 5:41 [facility] PLATELET COUNT - PMC 233 150 - 450 10 3/uL 08/18/2020 5:41 [facility] MPV 10.3 9.2 - 12.0 fL 08/18/2020 5:41 [facility] 08/18/2020 5:15 EDT 08/18/2020 5:27 EDT Junior Ray MD HEMATOLOGY & PF4 OR DERABLES Performing Organization Address City/[facility]/ZIP Co de Phone Number [facility] [address] [place] [address] documented in this encounter Visit Diagnoses Not on filedocumented in this encounter Care Teams Agricultural Research Engineer Relationship Specialty Start Date End Date Katia Stone, PABijalC [address] [place] [phone] PCP - General 05/02/17 documented as of this encounter
--- OUTSIDE RECORDS SUMMARY | 2023-12-15 13:00 | XMS_ITS | Encounter Summary ---
Author Organization [facility] Address [address] [place] [address] Care Team Providers Care Software Support Representative Name Role Phone Katia Stone PA-C Primary Care Provider +1- [phone] Encounter Details Date Type Department Care Team (Late st Contact Info) Description 08/12/2020 Results Only [facility] - [facility] [place] Rhe[place]ology [address] [place] [address] Ester Valerio MD [address] [facility] [address] [place] [id number] Social History Tobacco Use Types Packs/Day Years [...] 1.8 - 2.4 mg/dl 08/12/2020 7:37 EDT [facility] 08/12/2020 6:48 EDT 08/12/2020 7:00 EDT Ester Valerio MD CHEMISTRY & BLOO D GAS ORDERABLES Performing Organization Address City/State/[facility] Co de Phone Number [facility] [address] [place] [address] * (ABNORMAL) BASIC METABOLIC PANEL (BMP) (08/12/2020 6:48 EDT) Sodium 135(L) 136 - 145 mEq/L 08/12/2020 7:37 EDT [facility] Potassium 3.2(L) 3.5 - 5.1 mEq/L 08/12/2020 7:37 EDT [facility] Chloride 101 96 - 107 mEq/L 08/12/2020 7:37 EDT [facility] CO2 Total 28.8 21 - 32 mEq/L 08/12/2020 7:37 [facility] Anion Gap 4.2 mEq/L 08/12/2020 7:37 [facility] BUN 5(L) 7 - 25 mg/dl 08/12/2020 7:37 [facility] Creatinine 0.50(L) 0.70 - 1.30 mg/dl 08/12/2020 7:37 [facility] Estimated GFR >60 >60 08/12/2020 7:37 [facility] Comment: EGFR UNITS: mL/min/1.73 m 2 CKD-EPI Equation used to calculate. Glucose 102 74 - 106 mg/dl 08/12/2020 7:37 [facility] Calcium 7.9(L) 8.5 - 10.1 mg/dl 08/12/2020 7:37 [facility] 08/12/2020 6:48 EDT 08/12/2020 7:00 EDT Ester Valerio MD CHEMISTRY & BLOO D GAS ORDERABLES [facility] [address] [place] [address] * (ABNORMAL) HEPATIC FUNCTION PANEL (ALB,ALK PHOS,ALT,AST,DBIL,TOT BOSSMAN,TOT PROT) (08/12/2020 6:48 EDT) BILIRUBIN - PMC 0.50 0.00 - 1.00 mg/dl 08/12/2020 7:37 [facility] DIRECT BILIRUBIN - PMC 0.20 0.00 - 0.30 mg/dl 08/12/2020 7:37 [facility] INDIRECT BILIRUBIN - PMC 0.30 0.00 - 0.80 mg/dl 08/12/2020 7:37 [facility] AST 31 15 - 37 U/L 08/12/2020 7:37 [facility] ALT 25 16 - 63 U/L 08/12/2020 7:37 [facility] Alkaline Phosphatase 99 46 - 116 U/L 08/12/2020 7:37 EDT [facility] Total Protein 5.9(L) 6.4 - 8.2 g/dl 08/12/2020 7:37 EDT [facility] Albumin 2.2(L) 3.4 - 5.0 g/dl 08/12/2020 7:37 EDT [facility] GLOBULIN - PMC 3.7 g/dl 08/12/2020 7:37 EDT [facility] ALBUMIN/GLOBULIN RATIO - PMC 0.5 08/12/2020 7:37 EDT [facility] 08/12/2020 6:48 EDT 08/12/2020 7:00 EDT Ester Valerio MD CHEMISTRY & BLOO D GAS ORDERABLES [facility] [address] [place] [address] documented in this encounter Visit Diagnoses Not on filedocumented in this encounter Care Teams Software Support Representative Relationship Specialty Start Date End Date Katia Stone, PABijalC [address] [place] [phone] PCP - General 05/02/17 documented as of this encounter
--- OUTSIDE RECORDS SUMMARY | 2023-12-15 13:00 | XMS_ITS | Encounter Summary ---
Author Organization [facility] Address [address] [place] [address] Care Team Providers Care Alley Worker Name Role Phone Katia Stone PA-C Primary Care Provider +1- [phone] Encounter Details Date Type Department Care Team (Late st Contact Info) Description 08/11/2020 Results Only [facility] [place] Rheumatology [address] [place] [address] Ester Valerio MD [address] [facility] [address] [place] [phone] Social History Tobacco Use Types Packs/Day Years [...] 1.8 - 2.4 mg/dl 08/11/2020 6:07 EDT [facility] 08/11/2020 5:25 EDT 08/11/2020 5:39 EDT Ester Valerio MD CHEMISTRY & BLOO D GAS ORDERABLES Performing Organization Address City/State/[facility] Co de Phone Number [facility] [address] [place] [address] * (ABNORMAL) BASIC METABOLIC PANEL (BMP) (08/11/2020 5:25 EDT) Sodium 132(L) 136 - 145 mEq/L 08/11/2020 6:07 EDT [facility] Potassium 3.5 3.5 - 5.1 mEq/L 08/11/2020 6:07 T [facility] Chloride 99 96 - 107 mEq/L 08/11/2020 6:07 EDT [facility] CO2 Total 28.6 21 - 32 mEq/L 08/11/2020 6:07 [facility] Anion Gap 4.4 mEq/L 08/11/2020 6:07 [facility] BUN 5(L) 7 - 25 mg/dl 08/11/2020 6:07 [facility] Creatinine 0.51(L) 0.70 - 1.30 mg/dl 08/11/2020 6:07 [facility] Estimated GFR >60 >60 08/11/2020 6:07 [facility] Comment: EGFR UNITS: mL/min/1.73 m 2 CKD-EPI Equation used to calculate. Glucose 112(H) 74 - 106 mg/dl 08/11/2020 6:07 [facility] Calcium 7.7(L) 8.5 - 10.1 mg/dl 08/11/2020 6:07 [facility] 08/11/2020 5:25 EDT 08/11/2020 5:39 EDT Ester Valerio MD CHEMISTRY & BLOO D GAS ORDERABLES [facility] [address] [place] [address] * (ABNORMAL) HEPATIC FUNCTION PANEL (ALB,ALK PHOS,ALT,AST,DBIL,TOT BOSSMAN,TOT PROT) (08/11/2020 5:25 EDT) BILIRUBIN - PMC 0.70 0.00 - 1.00 mg/dl 08/11/2020 6:07 [facility] DIRECT BILIRUBIN - PMC 0.30 0.00 - 0.30 mg/dl 08/11/2020 6:07 [facility] INDIRECT BILIRUBIN - PMC 0.40 0.00 - 0.80 mg/dl 08/11/2020 6:07 [facility] AST 39(H) 15 - 37 U/L 08/11/2020 6:07 [facility] ALT 30 16 - 63 U/L 08/11/2020 6:07 [facility] Alkaline Phosphatase 95 46 - 116 U/L 08/11/2020 6:07 EDT [facility] Total Protein 6.1(L) 6.4 - 8.2 g/dl 08/11/2020 6:07 T [facility] Albumin 2.2(L) 3.4 - 5.0 g/dl 08/11/2020 6:07 EDT [facility] GLOBULIN - PMC 3.9 g/dl 08/11/2020 6:07 EDT [facility] ALBUMIN/GLOBULIN RATIO - PMC 0.5 08/11/2020 6:07 EDT [facility] 08/11/2020 5:25 EDT 08/11/2020 5:39 EDT Ester Valerio MD CHEMISTRY & BLOO D GAS ORDERABLES [facility] [address] [place] [address] documented in this encounter Visit Diagnoses Not on filedocumented in this encounter Care Teams Alley Worker Relationship Specialty Start Date End Date Katia Stone, BELLAC [address] [place] [phone] PCP - General 05/02/17 documented as of this encounter
--- OUTSIDE RECORDS SUMMARY | 2023-12-15 13:00 | XMS_ITS | Encounter Summary ---
Author Organization [facility] Address [address] [place] [address] Care Team Providers Care Clearance Cutter Name Role Phone Katia Stone PA-C Primary Care Provider +1- [phone] Encounter Details Date Type Department Care Team (Late st Contact Info) Description 08/13/2020 Lab Requisition [facility] Pathology & Laboratory Medicine - [address] [address] Outr Resulting Lab, Provider Social History Tobacco [...] ova and parasites seen. 08/14/2020 11:44 EDT [facility] Feces SPECIMEN FROM RECTUM / Unknown 08/11/2020 14:50 EDT 08/13/2020 15:22 EDT Narrative [facility] - 08/14/2020 11:44 EDT (If Cryptosporidium, Cyclospora, or Microsporidium are suspected, specific tests must be requested.) Single negative specimen does not rule out the possibility of a parasitic infection. Provider Outr Resulting Lab MICROBIOLOGY - GENERAL ORDERABLES [facility] [address] [place] [address] documented in this encounter Visit Diagnoses Not on filedocumented in this encounter Additional Health Concerns Infection Onset Date Last Indicated Resolved Time RSV 01/31/2022 01/31/2022 02/10/2022 22:1 5 EST documented as of this encounter Care Teams Clearance Cutter Relationship Specialty Start Date End Date Katia Stone, PABijalC [address] [place] [phone] PCP - General 05/02/17 documented as of this encounter
--- OUTSIDE RECORDS SUMMARY | 2023-12-15 13:00 | XMS_ITS | Encounter Summary ---
Author Organization [facility] Address [address] [place] [address] Care Team Providers Care Db2 Dba Name Role Phone Katia Stone PA-C Primary Care Provider +1- [phone] Encounter Details Date Type Department Care Team (Late st Contact Info) Description 06/21/2021 Lab Requisition [facility] Pathology & Laboratory Medicine - [address] [address] Virginia Price, DO [address] [place] [address] Acute cholecystitis Social History Tobacco Use Types [...] explore management options, if applicable. 06/26/2021 10:43 [facility] Final Diagnosis A. GALLBLADDER, CHOLECYSTECTOMY: - Acute and chronic erosive cholecystitis. 06/26/2021 10:43 [facility] Attestation There was significant resident/fellow involvement in the diagnostic evaluation of this case. By the signature below, the attending physician certifies that they have personally conducted a gross and/or microscopic examination of the described specimens and rendered or confirmed the above diagnosis. 06/26/2021 10:43 [facility] at 1043 Clinical History Cholecystitis 06/26/2021 10:43 [facility] Gross Description A. [...] gallbladder or free-floating within the container. Two inbound sales representative sections and the en face cystic duct margin are submitted in A1. GIRISH GOMEZ(ASCP) 06/22/2021 7:58 06/26/2021 10:43 EDT [facility] Resident/Emile w: Chayo Chatman MD 06/26/2021 10:43 EDT [facility] Performing Lab [facility] 06/26/2021 10:43 EDT [facility] Scanned Images 06/26/2021 10:43 EDT [facility] Tissue ENTIRE GALLBLADDER / Unknown 06/21/2021 11:58 EDT 06/21/2021 17:30 EDT Virginia Price DO PATHOLOGY ORDERABLES [facility] [address] [place] [address] documented in this encounter Visit Diagnoses Diagnosis Acute cholecystitis documented in this encounter Additional Health Concerns Infection Onset Date Last Indicated Resolved Time RSV 01/31/2022 01/31/2022 02/10/2022 22:1 5 EST documented as of this encounter Care Teams Db2 Dba Relationship Specialty Start Date End Date Katia Stnoe, MINGO [address] [place] [phone] PCP - General 05/02/17 documented as of this encounter
--- OUTSIDE RECORDS SUMMARY | 2023-12-15 13:00 | XMS_ITS | Encounter Summary ---
Author Organization [facility] Address [address] [place] [address] Care Team Providers Care Preparator Name Role Phone Katia Stone PA-C Primary Care Provider +1- [phone] Encounter Details Date Type Department Care Team (Late st Contact Info) Description 08/20/2020 Results Only [facility] [address] [place] [address] Junior Ray MD [address] [place] [address] Social History Tobacco Use Types [...] 1.8 - 2.4 mg/dl 08/20/2020 13:10 EDT [facility] 08/20/2020 6:50 EDT 08/20/2020 6:59 EDT Junior Ray MD CHEMISTRY & BLOOD G ORDERABLES [facility] [address] [place] [address] * (ABNORMAL) BASIC METABOLIC PANEL (BMP) (08/20/2020 6:50 EDT) Sodium 134(L) 136 - 145 mEq/L 08/20/2020 7:27 EDT [facility] Potassium 3.6 3.5 - 5.1 mEq/L 08/20/2020 7:27 [facility] Chloride 100 96 - 107 mEq/L 08/20/2020 7:27 EDT [facility] CO2 Total 28.7 21 - 32 mEq/L 08/20/2020 7:27 T [facility] Anion Gap 5.3 mEq/L 08/20/2020 7:27 [facility] BUN 7 7 - 25 mg/dl 08/20/2020 7:27 [facility] Creatinine 0.48(L) 0.70 - 1.30 mg/dl 08/20/2020 7:27 [facility] Estimated GFR >60 >60 08/20/2020 7:27 [facility] Comment: EGFR UNITS: mL/min/1.73 m 2 CKD-EPI Equation used to calculate. Glucose 91 74 - 106 mg/dl 08/20/2020 7:27 [facility] Calcium 8.3(L) 8.5 - 10.1 mg/dl 08/20/2020 7:27 [facility] 08/20/2020 6:50 EDT 08/20/2020 6:59 EDT Junior Ray MD CHEMISTRY & BLOOD G ORDERABLES [facility] [address] [place] [address] * (ABNORMAL) COMPLETE BLOOD COUNT (08/20/2020 6:50 EDT) WBC 5.8 4.0 - 10.5 10 3/uL 08/20/2020 7:07 [facility] RBC 2.96(L) 4.70 - 6.00 10 6/uL 08/20/2020 7:07 [facility] Hemoglobin 10.5(L) 13.5 - 18.0 g/dL 08/20/2020 7:07 [facility] HCT 29.8(L) 42.0 - 52.0 % 08/20/2020 7:07 [facility] MCV 100.7(H) 78 - 100 fL 08/20/2020 7:07 [facility] MCH 35.5(H) 27 - 31 pg 08/20/2020 7:07 [facility] MCHC 35.2 32 - 37 g/dL 08/20/2020 7:07 [facility] RDW-CV - PMC 14.7 <14.7 % 08/20/2020 7:07 EDT [facility] PLATELET COUNT - PMC 253 150 - 450 10 3/uL 08/20/2020 7:07 T [facility] MPV 10.1 9.2 - 12.0 fL 08/20/2020 7:07 EDT [facility] 08/20/2020 6:50 EDT 08/20/2020 6:59 EDT Junior Ray MD HEMATOLOGY & PF4 OR DERABLES [facility] [address] [place] [address] documented in this encounter Visit Diagnoses Not on filedocumented in this encounter Care Teams Preparator Relationship Specialty Start Date End Date Katia Stone, PABijalC [address] [place] [phone] PCP - General 05/02/17 documented as of this encounter
--- OUTSIDE RECORDS SUMMARY | 2023-12-15 13:00 | XMS_ITS | Encounter Summary ---
Author Organization [facility] Address [address] [place] [address] Care Team Providers Care Physical Medicine Physician Name Role Phone Katia Stone PA-C Primary Care Provider +1- [phone] Encounter Details Date Type Department Care Team (Late st Contact Info) Description 08/20/2020 Results Only [facility] [address] [place] [address] Marilyn Hood MD [address] [place] [address] Social History Tobacco Use Types [...] Requests ADD ON DONE 08/20/2020 12:58 EDT [facility] Comment: All tests (see tests in sample comments) have been added as requested. 08/20/2020 12:5 1 EDT 08/20/2020 12:58 EDT Narrative [facility] - 08/20/2020 12:58 EDT today on the med/surg Magnesium Marilyn Hood MD CHEMISTRY & BLO OD GAS ORDERABLES Performing Organization Address City/State/[facility] Co de Phone Number [facility] [address] [place] [address] documented in this encounter Visit Diagnoses Not on filedocumented in this encounter Care Teams Physical Medicine Physician Relationship Specialty Start Date End Date Katia Stone, PABijalC [address] [facility] [place] [phone] PCP - General 05/02/17 documented as of this encounter
--- OUTSIDE RECORDS SUMMARY | 2023-12-15 13:00 | XMS_ITS | Encounter Summary ---
Author Organization [facility] Address [address] [place] [address] Care Team Providers Care Bench Worker Hollow Handle Name Role Phone Katia Stone PA-C Primary Care Provider +1- [phone] Encounter Details Date Type Department Care Team (Late st Contact Info) Description 08/10/2020 Results Only [facility] - [facility] [place] Rheumatology [address] [place] [address] Ester Valerio MD [address] [facility] [address] [place] [phone] Social History Tobacco Use Types Packs/Day Years [...] 1.8 - 2.4 mg/dl 08/10/2020 6:13 EDT [facility] 08/10/2020 5:35 EDT 08/10/2020 5:42 EDT Ester Valerio MD CHEMISTRY & BLOO D GAS ORDERABLES [facility] [address] [place] [address] * (ABNORMAL) BASIC METABOLIC PANEL (BMP) (08/10/2020 5:35 EDT) Sodium 133(L) 136 - 145 mEq/L 08/10/2020 6:13 EDT [facility] Potassium 3.4(L) 3.5 - 5.1 mEq/L 08/10/2020 6:13 EDT [facility] Chloride 98 96 - 107 mEq/L 08/10/2020 6:13 [facility] CO2 Total 27.2 21 - 32 mEq/L 08/10/2020 6:13 [facility] Anion Gap 7.8 mEq/L 08/10/2020 6:13 [facility] BUN 6(L) 7 - 25 mg/dl 08/10/2020 6:13 [facility] Creatinine 0.54(L) 0.70 - 1.30 mg/dl 08/10/2020 6:13 [facility] Estimated GFR >60 >60 08/10/2020 6:13 [facility] Comment: EGFR UNITS: mL/min/1.73 m 2 CKD-EPI Equation used to calculate. Glucose 86 74 - 106 mg/dl 08/10/2020 6:13 [facility] Calcium 7.7(L) 8.5 - 10.1 mg/dl 08/10/2020 6:13 [facility] 08/10/2020 5:35 EDT 08/10/2020 5:42 EDT Ester Valerio MD CHEMISTRY & BLOO D GAS ORDERABLES [facility] [address] [place] [address] * (ABNORMAL) HEPATIC FUNCTION PANEL (ALB,ALK PHOS,ALT,AST,DBIL,TOT BOSSMAN,TOT PROT) (08/10/2020 5:35 EDT) BILIRUBIN - PMC 0.90 0.00 - 1.00 mg/dl 08/10/2020 6:13 [facility] DIRECT BILIRUBIN - PMC 0.50(H) 0.00 - 0.30 mg/dl 08/10/2020 6:13 [facility] INDIRECT BILIRUBIN - PMC 0.40 0.00 - 0.80 mg/dl 08/10/2020 6:13 [facility] AST 50(H) 15 - 37 U/L 08/10/2020 6:13 [facility] ALT 37 16 - 63 U/L 08/10/2020 6:13 [facility] Alkaline Phosphatase 97 46 - 116 U/L 08/10/2020 6:13 [facility] Total Protein 6.1(L) 6.4 - 8.2 g/dl 08/10/2020 6:13 [facility] Albumin 2.3(L) 3.4 - 5.0 g/dl 08/10/2020 6:13 [facility] GLOBULIN - PMC 3.8 g/dl 08/10/2020 6:13 [facility] ALBUMIN/GLOBULIN RATIO - PMC 0.6 08/10/2020 6:13 [facility] 08/10/2020 5:35 EDT 08/10/2020 5:42 EDT Ester Valerio MD CHEMISTRY & BLOO D GAS ORDERABLES Performing Organization Address City/State/[facility] Co de Phone Number [facility] [address] [place] [address] * (ABNORMAL) COMPLETE BLOOD COUNT AND DIFFERENTIAL (08/10/2020 5:35 EDT) WBC 7.0 4.0 - 10.5 10 3/uL 08/10/2020 5:58 [facility] RBC 2.72(L) 4.70 - 6.00 10 6/uL 08/10/2020 5:58 [facility] Hemoglobin 9.7(L) 13.5 - 18.0 g/dL 08/10/2020 5:58 [facility] HCT 27.9(L) 42.0 - 52.0 % 08/10/2020 5:58 [facility] MCV 102.6(H) 78 - 100 fL 08/10/2020 5:58 [facility] MCH 35.7(H) 27 - 31 pg 08/10/2020 5:58 [facility] MCHC 34.8 32 - 37 g/dL 08/10/2020 5:58 [facility] RDW-CV - PMC 14.7 <14.7 % 08/10/2020 5:58 [facility] PLATELET COUNT - PMC 180 150 - 450 10 3/uL 08/10/2020 5:58 [facility] MPV 11.0 9.2 - 12.0 fL 08/10/2020 5:58 [facility] NEUTROPHILS % (AUTO) - PMC 65.5 % 08/10/2020 5:58 [facility] LYMPHOCYTES % (AUTO) - PMC 17.5 % 08/10/2020 5:58 [facility] MONOCYTES % (AUTO) - PMC 13.9 % 08/10/2020 5:58 [facility] EOSINOPHILS % (AUTO) - PMC 2.1 % 08/10/2020 5:58 [facility] BASOPHILS % (AUTO) - PMC 0.4 % 08/10/2020 5:58 [facility] Immature Granulocyte % (Auto) 0.6 % 08/10/2020 5:58 [facility] NUCLEATED RBC % (AUTO) - PMC 0.0 % 08/10/2020 5:58 [facility] NEUTROPHILS # (AUTO) - PMC 4.6 1.5 - 6.6 10 3/uL 08/10/2020 5:58 [facility] LYMPHOCYTES # (AUTO) - PMC 1.2 1.0 - 3.5 10 3/uL 08/10/2020 5:58 [facility] MONOCYTES # (AUTO) - PMC 1.0 <1.0 10 3/uL 08/10/2020 5:58 [facility] EOSINOPHILS # (AUTO) - PMC 0.2 <0.7 10 3/uL 08/10/2020 5:58 [facility] Absolute Immature Granulocyte 0.04 <0.06 10 3/uL 08/10/2020 5:58 [facility] DIFFERENTIAL METHOD Auto Differential 08/10/2020 5:44 [facility] 08/10/2020 5:35 EDT 08/10/2020 5:43 EDT Ester Valerio MD PACKAGES & DNA P ANETA ORDERABLES [facility] [address] [place] [address] documented in this encounter Visit Diagnoses Not on filedocumented in this encounter Care Teams Bench Worker Hollow Handle Relationship Specialty Start Date End Date Katia Stone, PABijalC [address] [place] [phone] PCP - General 05/02/17 documented as of this encounter
--- OUTSIDE RECORDS SUMMARY | 2023-12-15 13:00 | XMS_ITS | Encounter Summary ---
Author Organization [facility] Address [address] [place] [address] Care Team Providers Care Cross Tie Cutter Name Role Phone Katia Stone PA-C Primary Care Provider +1- [phone] Encounter Details Date Type Department Care Team (Late st Contact Info) Description 09/05/2020 Results Only [facility] [phone] Rowan Abad, TAIWO [address] [place] [phone] Social History Tobacco Use Types Packs/Day [...] 4.0 - 10.5 10 3/uL 09/05/2020 14:58 [facility] RBC 3.40(L) 4.70 - 6.00 10 6/uL 09/05/2020 14:58 [facility] Hemoglobin 11.6(L) 13.5 - 18.0 g/dL 09/05/2020 14:58 [facility] HCT 33.9(L) 42.0 - 52.0 % 09/05/2020 14:58 [facility] MCV 99.7 78 - 100 fL 09/05/2020 14:58 [facility] MCH 34.1(H) 27 - 31 pg 09/05/2020 14:58 [facility] MCHC 34.2 32 - 37 g/dL 09/05/2020 14:58 [facility] RDW-CV - PMC 13.1 <14.7 % 09/05/2020 14:58 [facility] PLATELET COUNT - PMC 253 150 - 450 10 3/uL 09/05/2020 14:58 [facility] MPV 10.9 9.2 - 12.0 fL 09/05/2020 14:58 [facility] NEUTROPHILS % (AUTO) - PMC 57.6 % 09/05/2020 14:58 [facility] LYMPHOCYTES % (AUTO) - PMC 25.0 % 09/05/2020 14:58 [facility] MONOCYTES % (AUTO) - PMC 13.3 % 09/05/2020 14:58 [facility] EOSINOPHILS % (AUTO) - PMC 2.7 NOT ESTABLISHED % 09/05/2020 14:58 [facility] BASOPHILS % (AUTO) - PMC 1.1 % 09/05/2020 14:58 [facility] Immature Granulocyte % (Auto) 0.3 % 09/05/2020 14:58 [facility] NUCLEATED RBC % (AUTO) - PMC 0.0 % 09/05/2020 14:58 [facility] NEUTROPHILS # (AUTO) - PMC 3.7 1.5 - 6.6 10 3/uL 09/05/2020 14:58 [facility] LYMPHOCYTES # (AUTO) - PMC 1.6 1.0 - 3.5 10 3/uL 09/05/2020 14:58 [facility] MONOCYTES # (AUTO) - PMC 0.9 <1.0 10 3/uL 09/05/2020 14:58 [facility] EOSINOPHILS # (AUTO) - PMC 0.2 <0.7 10 3/uL 09/05/2020 14:58 [facility] BASOPHILS # (AUTO) - PMC 0.1 <0.1 10 3/uL 09/05/2020 14:58 [facility] Absolute Immature Granulocyte 0.02 <0.06 10 3/uL 09/05/2020 14:58 [facility] DIFFERENTIAL METHOD Auto Differential 09/05/2020 14:36 [facility] 09/05/2020 14:3 0 EDT 09/05/2020 14:35 EDT Rowan Abad NP PACKAGES & DNA PROBE ORDERABLES [facility] [address] [place] [address] * MAGNESIUM (09/05/2020 14:30 EDT) Pathologist [facility] Magnesium 1.8 1.8 - 2.4 mg/dl 09/05/2020 14:57 [facility] 09/05/2020 14:3 0 EDT 09/05/2020 14:35 EDT Rowan Abad NP CHEMISTRY & BLOOD GA S ORDERABLES Performing Organization Address City/[facility] Co de Phone Number [facility] [address] [place] [address] * (ABNORMAL) BASIC METABOLIC PANEL (BMP) (09/05/2020 14:30 EDT) Pathologist [facility] Sodium 132(L) 136 - 145 mEq/L 09/05/2020 14:57 [facility] Potassium 4.3 3.5 - 5.1 mEq/L 09/05/2020 14:57 [facility] Chloride 99 96 - 107 mEq/L 09/05/2020 14:57 [facility] CO2 Total 26.5 21 - 32 mEq/L 09/05/2020 14:57 [facility] Anion Gap 6.5 mEq/L 09/05/2020 14:57 [facility] BUN 12 7 - 25 mg/dl 09/05/2020 14:57 [facility] Creatinine 0.60(L) 0.70 - 1.30 mg/dl 09/05/2020 14:57 [facility] Estimated GFR >60 >60 09/05/2020 14:57 [facility] Comment: EGFR UNITS: mL/min/1.73 m 2 CKD-EPI Equation used to calculate. Glucose 100 74 - 106 mg/dl 09/05/2020 14:57 [facility] Calcium 8.6 8.5 - 10.1 mg/dl 09/05/2020 14:57 [facility] 09/05/2020 14:3 0 EDT 09/05/2020 14:35 EDT Rowan Abad BOOKMOBILE LIBRARIAN CHEMISTRY & BLOOD GA S ORDERABLES [facility] [address] [place] [address] documented in this encounter Visit Diagnoses Not on filedocumented in this encounter Care Teams Cross Tie Cutter Relationship Specialty Start Date End Date Katia Stone, PABijalC [address] [place] [phone] PCP - General 05/02/17 documented as of this encounter
--- OUTSIDE RECORDS SUMMARY | 2023-12-15 13:00 | XMS_ITS | Encounter Summary ---
Author Organization [facility] Address [address] [place] [address] Care Team Providers Care Director Heart Name Role Phone Katia Stone PA-C Primary Care Provider +1- [phone] Encounter Details Date Type Department Care Team (Late st Contact Info) Description 08/11/2020 Results Only [facility] [address] [place] [address] Jayesh Olmos MD [address] [place] [address] Social History Tobacco Use Types [...] infection. Test performed [place] [address] 08/11/2020 14:5 0 EDT 08/12/2020 14:54 EDT Narrative [facility] - 08/14/2020 15:34 EDT stool Jayesh Olmos MD MICROBIOLOGY - GENERAL ORDERABLES [facility] [address] [place] [address] * FECAL BACTERIAL PATHOGENS BY PCR (08/11/2020 [...] Comment: Test performed or referred by The [address] [address] 08/11/2020 14:5 0 EDT 08/12/2020 14:53 EDT Jayesh Olmos MD MICROBIOLOGY - GENERAL ORDERABLES Performing Organization Address City/State/[facility] Co de Phone Number [facility] [address] [place] [address] documented in this encounter Visit Diagnoses Not on filedocumented in this encounter Care Teams Director Heart Relationship Specialty Start Date End Date Katia Stone, BELLAC [address] [place] [address] PCP - General 05/02/17 documented as of this encounter
--- OUTSIDE RECORDS SUMMARY | 2023-12-15 13:00 | XMS_ITS | Encounter Summary ---
Author Organization [facility] Address [address] [place] [address] Care Team Providers Care Engine Builder Name Role Phone Katia Stone PA-C Primary Care Provider +1- [phone] Encounter Details Date Type Department Care Team (Late st Contact Info) Description 09/14/2020 Results Only [facility] [phone] Rowan Abad, TAIWO [address] [place] [phone] Social History Tobacco Use Types Packs/Day [...] - 450 10 3/uL 09/14/2020 6:07 EDT [facility] 09/14/2020 5:35 EDT 09/14/2020 5:46 EDT Narrative [facility] - 09/14/2020 6:16 EDT Comment ENOXAPARIN MONITORING Rowan Abad NP HEMATOLOGY & PF4 ORD ERABLES Performing Organization Address City/State/[facility] Co de Phone Number [facility] [address] [place] [address] * (ABNORMAL) CREATININE WITH GFR - PMC (09/14/2020 5:35 EDT) Creatinine 0.58(L) 0.70 - 1.30 mg/dl 09/14/2020 6:09 EDT [facility] Estimated GFR >60 >60 09/14/2020 6:09 T [facility] Comment: EGFR UNITS: mL/min/1.73 m 2 CKD-EPI Equation used to calculate. 09/14/2020 5:35 EDT 09/14/2020 5:46 EDT Rowan Abad NP CHEMISTRY & BLOOD GA S ORDERABLES [facility] [address] [place] [address] documented in this encounter Visit Diagnoses Not on filedocumented in this encounter Care Teams Engine Builder Relationship Specialty Start Date End Date Katia Stone, MINGO [address] [place] [phone] PCP - General 05/02/17 documented as of this encounter
--- OUTSIDE RECORDS SUMMARY | 2023-12-15 13:00 | XMS_ITS | Encounter Summary ---
Author Organization [facility] Address [address] [place] [address] Care Team Providers Care Partridge Farmer Name Role Phone Katia Stone PA-C Primary Care Provider +1- [phone] Encounter Details Date Type Department Care Team (Late st Contact Info) Description 06/23/2021 Lab Requisition [facility] Pathology & Laboratory Medicine - [address] [id number] Outr Resulting Lab, Provider Social History Tobacco [...] Urine 509 150-1,150 mOsm/kg 06/23/2021 21:58 EDT [facility] Urine URINE SPECIMEN COLLECTION, CLEAN CATCH / Unknown 06/23/2021 4:00 EDT 06/23/2021 21:40 EDT Provider Outr Resulting Lab URINALYSIS O RDERABLES [facility] [address] [place] [address] documented in this encounter Visit Diagnoses Not on filedocumented in this encounter Additional Health Concerns Infection Onset Date Last Indicated Resolved Time RSV 01/31/2022 01/31/2022 02/10/2022 22:1 5 EST documented as of this encounter Care Teams Partridge Farmer Relationship Specialty Start Date End Date Katia Stone, BELLAC [address] [place] [phone] PCP - General 05/02/17 documented as of this encounter
--- OUTSIDE RECORDS SUMMARY | 2023-12-15 13:00 | XMS_ITS | Encounter Summary ---
Author Organization [facility] Address [address] [place] [address] Care Team Providers Care Administrative Office Clerk Name Role Phone Katia Stone PA-C Primary Care Provider +1- [phone] Encounter Details Date Type Department Care Team (Late st Contact Info) Description 08/13/2020 Lab Requisition [facility] Pathology & Laboratory Medicine - [address] [address] Outr Resulting Lab, Provider Social History Tobacco [...] Salmonella PCR Negative Negative 08/13/2020 19:51 EDT [facility] Shigella/Enteroin vasive E. coli Negative Negative 08/13/2020 19:51 EDT [facility] HN LAB CAMPYLOBACTER PCR Negative Negative 08/13/2020 19:51 EDT [facility] Shiga Toxin PCR Negative Negative 19:51 EDT [facility] Feces SPECIMEN FROM RECTUM / Unknown 08/11/2020 14:50 EDT 08/13/2020 15:22 EDT Provider Outr Resulting Lab MICROBIOLOGY - GENERAL ORDERABLES [facility] [address] [place] [address] documented in this encounter Visit Diagnoses Not on filedocumented in this encounter Additional Health Concerns Infection Onset Date Last Indicated Resolved Time RSV 01/31/2022 01/31/2022 02/10/2022 22:1 5 EST documented as of this encounter Care Teams Administrative Office Clerk Relationship Specialty Start Date End Date Katia Stone, PABijalC [address] [place] [phone] PCP - General 05/02/17 documented as of this encounter
--- OUTSIDE RECORDS SUMMARY | 2023-12-15 13:00 | XMS_ITS | Encounter Summary ---
Author Organization [facility] Address [address] [place] [address] Care Team Providers Care Control Technician Name Role Phone Katia Stone PA-C Primary Care Provider +1- [phone] Encounter Details Date Type Department Care Team (Late st Contact Info) Description 03/13/2022 Lab Requisition [facility] Pathology & Laboratory Medicine - [address] [address] Outr Resulting Lab, Provider Social History Tobacco [...] Antigen Detection Negative Negative 03/13/2022 21:38 EST [facility] Urine URINE / Unknown 03/12/2022 1 9:15 EST 03/13/2022 17:44 EST Provider Outr Resulting Lab MICROBIOLOGY - GENERAL ORDERABLES Performing Organization Address City/State/[facility] Co de Phone Number [facility] [address] [place] [address] documented in this encounter Visit Diagnoses Not on filedocumented in this encounter Care Teams Control Technician Relationship Specialty Start Date End Date Katia Stone, PABijalC [address] [place] [address] PCP - General 05/02/17 documented as of this encounter
--- OUTSIDE RECORDS SUMMARY | 2023-12-15 13:00 | XMS_ITS | Encounter Summary ---
Author Organization [facility] Address [address] [place] [address] Care Team Providers Care Auto Garage Attendant Name Role Phone Katia Stone PA-C Primary Care Provider +1- [phone] Encounter Details Date Type Department Care Team (Late st Contact Info) Description 04/30/[address] [facility] Pathology & Laboratory Medicine - [address] [address] Ike Chahal MD [address] [place] [address] Disorder of the skin and subcutaneous tissue, [...] explore management options, if applicable. 05/01/2022 14:29 [facility] Final Diagnosis A. SKIN OF NASAL TIP, EXCISION: - Dermal fibrosis, adipose accumulation, and edema with sebaceous hyperplasia and lymphoplasmacytic inflammation. See comment. 05/01/2022 14:29 [facility] Diagnosis Comment The histopathologic features, in the correct clinical setting, are most suggestive of rhinophyma. There is no evidence of malignancy. 05/01/2022 14:29 [facility] Attestation By the signature below, the attending physician certifies that they have 1) personally conducted a gross and/or microscopic examination of the described specimen(s), and/or personally interpreted the results of laboratory testing of the described specimen(s), and 2) personally rendered or confirmed the above diagnosis. 05/01/2022 14:29 [facility] at 1429 Microscopic [...] direct continuity with overlying epidermis. 05/01/2022 14:29 [facility] Clinical History Nasal tip lesion; clinical diagnosis code: L98.9 05/01/2022 14:29 [facility] Gross Description A. [...] sections GIRISH GOMEZ(ASCP) 04/30/2022 9:39 05/01/2022 14:29 [facility] Performing Lab [facility] 05/01/2022 14:29 [facility] Scanned Images 05/01/2022 14:29 [facility] Tissue TISSUE SPECIMEN FROM SKIN / Unknown 04/29/2022 14:00 EST 04/30/2022 9:00 EST Ike Chahal MD PATHOLOGY ORDERABLES [facility] [address] [place] [address] documented in this encounter Visit Diagnoses Diagnosis Disorder of the skin and subcutaneous tissue, unspecified documented in this encounter Care Teams Auto Garage Attendant Relationship Specialty Start Date End Date Katia Stone, BELLAC [address] [facility] [place] [place] [phone] PCP - General 05/02/17 documented as of this encounter
--- OUTSIDE RECORDS SUMMARY | 2023-12-15 13:00 | XMS_ITS | Encounter Summary ---
Author Organization [facility] Address [address] [place] [address] Care Team Providers Care Pump House Operator Name Role Phone Katia Stone PA-C Primary Care Provider +1- [phone] Encounter Details Date Type Department Care Team (Late st Contact Info) Description 09/06/2020 Results Only [facility] [phone] Rowan Abad, TAIWO [address] [place] [phone] Social History Tobacco Use Types Packs/Day [...] * PLATELET COUNT (09/06/2020 5:05 EDT) Pathologist [facility] PLATELET COUNT - [facility] 236 150 - 450 10 3/uL 09/06/2020 5:55 EDT [facility] 09/06/2020 5:05 EDT 09/06/2020 5:32 EDT Narrative [facility] - 09/06/2020 5:58 EDT Comment ENOXAPARIN MONITORING Rowan Abad NP HEMATOLOGY & PF4 ORD ERABLES Performing Organization Address City/State/[facility] [[email or web address]] Co de Phone Number [facility] [address] [place] [address] * (ABNORMAL) CREATININE WITH GFR - PMC (09/06/2020 5:05 EDT) Pathologist [facility] Creatinine 0.60(L) 0.70 - 1.30 mg/dl 09/06/2020 5:52 EDT [facility] Estimated GFR >60 >60 09/06/2020 5:52 EDT [facility] Comment: EGFR UNITS: mL/min/1.73 m 2 CKD-EPI Equation used to calculate. 09/06/2020 5:05 EDT 09/06/2020 5:32 EDT Rowan Abad NP CHEMISTRY & BLOOD GA S ORDERABLES [facility] [address] [place] [address] documented in this encounter Visit Diagnoses Not on filedocumented in this encounter Care Teams Pump House Operator Relationship Specialty Start Date End Date Katia Stone, MINGO [address] [place] [phone] PCP - General 05/02/17 documented as of this encounter
--- OUTSIDE RECORDS SUMMARY | 2023-12-15 13:00 | XMS_ITS | Encounter Summary ---
Author Organization [facility] Address [address] [place] [address] Care Team Providers Care Bobtail Driver Name Role Phone Katia Stone PA-C Primary Care Provider +1- [phone] Encounter Details Date Type Department Care Team (Late st Contact Info) Description 08/29/2020 Results Only [facility] [phone] Rowan Abad, TAIWO [address] [place] [phone] Social History Tobacco Use Types Packs/Day [...] 0.70 - 1.30 mg/dl 08/29/2020 5:41 EDT [facility] Estimated GFR >60 >60 08/29/2020 5:41 EDT [facility] Comment: EGFR UNITS: mL/min/1.73 m 2 CKD-EPI Equation used to calculate. 08/29/2020 5:05 EDT 08/29/2020 5:23 EDT Rowan Abad NP CHEMISTRY & BLOOD GA S ORDERABLES Performing Organization Address City/[facility]/ZIP Co de Phone Number [facility] [address] [place] [address] * PLATELET COUNT (08/29/2020 5:05 EDT) PL[facility]LET COUNT - [facility] 324 150 - 450 10 3/uL 08/29/2020 5:39 EDT [facility] 08/29/2020 5:05 EDT 08/29/2020 5:23 EDT Narrative [facility] - 08/29/2020 5:41 EDT Comment ENOXAPARIN MONITORING Rowan Abad NP HEMATOLOGY & PF4 ORD ERABLES [facility] [address] [place] [address] documented in this encounter Visit Diagnoses Not on filedocumented in this encounter Care Teams Bobtail Driver Relationship Specialty Start Date End Date Katia Stone, MINGO [address] [place] [phone] PCP - General 05/02/17 documented as of this encounter
--- OUTSIDE RECORDS SUMMARY | 2023-12-15 13:00 | XMS_ITS | Encounter Summary ---
Author Organization [facility] Address [address] [place] [address] Care Team Providers Care Network Architect Manager Name Role Phone Katia Stone PA-C Primary Care Provider +1- [phone] Encounter Details Date Type Department Care Team (Late st Contact Info) Description 09/02/2020 Results Only [facility] [phone] Rowan Abad, TAIWO [address] [place] [phone] Social History Tobacco Use Types Packs/Day [...] 0.70 - 1.30 mg/dl 09/02/2020 7:12 EDT LAB Estimated GFR >60 >60 09/02/2020 7:12 EDT LAB Comment: EGFR UNITS: mL/min/1.73 m 2 CKD-EPI Equation used to calculate. 09/02/2020 6:18 EDT 09/02/2020 6:44 EDT Rowan Abad NP CHEMISTRY & BLOOD GA S ORDERABLES Performing Organization Address City/[facility]/ZIP Co de Phone Number LAB [address] [place] [address] * PLATELET COUNT (09/02/2020 6:18 EDT) PLATELET COUNT - [facility] 247 150 - 450 10 3/uL 09/02/2020 6:57 EDT LAB 09/02/2020 6:18 EDT 09/02/2020 6:44 EDT Narrative LAB - 09/02/2020 7:06 EDT Comment ENOXAPARIN MONITORING Rowan Abad NP HEMATOLOGY & PF4 ORD ERABLES LAB [address] [place] [address] documented in this encounter Visit Diagnoses Not on filedocumented in this encounter Care Teams Network Architect Manager Relationship Specialty Start Date End Date Katia Stone, MINGO [address] [place] [phone] PCP - General 05/02/17 documented as of this encounter
--- OUTSIDE RECORDS SUMMARY | 2023-12-15 13:00 | XMS_ITS | Encounter Summary ---
Author Organization [facility] Address [address] [place] [address] Care Team Providers Care Knowledge Manager Name Role Phone Katia Stone PA-C Primary Care Provider +1- [phone] Encounter Details Date Type Department Care Team (Late st Contact Info) Description 08/22/2020 Results Only [facility]- [facility] [phone] Rowan Abad, TAIWO [address] [place] [phone] Social History Tobacco Use Types Packs/Day [...] Results * MAGNESIUM (08/22/2020 5:30 EDT) Pathologist [facility] Magnesium 1.8 1.8 - 2.4 mg/dl 08/22/2020 6:03 T [facility] 08/22/2020 5:30 EDT 08/22/2020 5:39 EDT Rowan Abad NP CHEMISTRY & BLOOD GA S ORDERABLES [facility] [address] [place] [address] * (ABNORMAL) BASIC METABOLIC PANEL (BMP) (08/22/2020 5:30 EDT) Sodium 133(L) 136 - 145 mEq/L 08/22/2020 6:03 EDT [facility] Potassium 3.7 3.5 - 5.1 mEq/L 08/22/2020 6:03 [facility] Chloride 101 96 - 107 mEq/L 08/22/2020 6:03 [facility] CO2 Total 26.1 21 - 32 mEq/L 08/22/2020 6:03 [facility] Anion Gap 6.9 mEq/L 08/22/2020 6:03 [facility] BUN 8 7 - 25 mg/dl 08/22/2020 6:03 [facility] Creatinine 0.67(L) 0.70 - 1.30 mg/dl 08/22/2020 6:03 [facility] Estimated GFR >60 >60 08/22/2020 6:03 [facility] Comment: EGFR UNITS: mL/min/1.73 m 2 CKD-EPI Equation used to calculate. Glucose 94 74 - 106 mg/dl 08/22/2020 6:03 [facility] Calcium 8.2(L) 8.5 - 10.1 mg/dl 08/22/2020 6:03 [facility] 08/22/2020 5:30 EDT 08/22/2020 5:39 EDT Rowan Abad NP CHEMISTRY & BLOOD GA S ORDERABLES Performing Organization Address City/State/[facility] Co de Phone Number [facility] [address] [place] [address] * (ABNORMAL) COMPLETE BLOOD COUNT AND DIFFERENTIAL (08/22/2020 5:30 EDT) WBC 6.0 4.0 - 10.5 10 3/uL 08/22/2020 5:56 [facility] RBC 2.84(L) 4.70 - 6.00 10 6/uL 08/22/2020 5:56 [facility] Hemoglobin 10.0(L) 13.5 - 18.0 g/dL 08/22/2020 5:56 [facility] HCT 28.3(L) 42.0 - 52.0 % 08/22/2020 5:56 [facility] MCV 99.6 78 - 100 fL 08/22/2020 5:56 [facility] MCH 35.2(H) 27 - 31 pg 08/22/2020 5:56 [facility] MCHC 35.3 32 - 37 g/dL 08/22/2020 5:56 [facility] RDW-CV - PMC 14.3 <14.7 % 08/22/2020 5:56 [facility] PLATELET COUNT - PMC 209 150 - 450 10 3/uL 08/22/2020 5:56 [facility] MPV 11.7 9.2 - 12.0 fL 08/22/2020 5:56 [facility] NEUTROPHILS % (AUTO) - PMC 58.1 % 08/22/2020 5:56 [facility] LYMPHOCYTES % (AUTO) - PMC 22.9 % 08/22/2020 5:56 [facility] MONOCYTES % (AUTO) - PMC 14.4 % 08/22/2020 5:56 [facility] EOSINOPHILS % (AUTO) - PMC 3.3 NOT ESTABLISHED % 08/22/2020 5:56 [facility] BASOPHILS % (AUTO) - PMC 1.0 % 08/22/2020 5:56 [facility] Immature Granulocyte % (Auto) 0.3 % 08/22/2020 5:56 [facility] NUCLEATED RBC % (AUTO) - PMC 0.0 % 08/22/2020 5:56 [facility] NEUTROPHILS # (AUTO) - PMC 3.5 1.5 - 6.6 10 3/uL 08/22/2020 5:56 [facility] LYMPHOCYTES # (AUTO) - PMC 1.4 1.0 - 3.5 10 3/uL 08/22/2020 5:56 [facility] MONOCYTES # (AUTO) - PMC 0.9 <1.0 10 3/uL 08/22/2020 5:56 [facility] EOSINOPHILS # (AUTO) - PMC 0.2 <0.7 10 3/uL 08/22/2020 5:56 [facility] BASOPHILS # (AUTO) - PMC 0.1 <0.1 10 3/uL 08/22/2020 5:56 [facility] Absolute Immature Granulocyte 0.02 <0.06 10 3/uL 08/22/2020 5:56 [facility] DIFFERENTIAL METHOD Auto Differential 08/22/2020 5:41 [facility] 08/22/2020 5:30 EDT 08/22/2020 5:39 EDT Rowan Abad TRIM DIE MAKER PACKAGES & DNA PROBE ORDERABLES [facility] [address] [place] [address] documented in this encounter Visit Diagnoses Not on filedocumented in this encounter Care Teams Knowledge Manager Relationship Specialty Start Date End Date Katia Stone, PABijalC [address] [place] [phone] PCP - General 05/02/17 documented as of this encounter
--- OUTSIDE RECORDS SUMMARY | 2023-12-15 13:00 | XMS_ITS | Encounter Summary ---
Author Organization [facility] Address [address] [place] [address] Care Team Providers Care Supervisor Television Chassis Repair Name Role Phone Katia Stone PA-C Primary Care Provider +1- [phone] Encounter Details Date Type Department Care Team (Late st Contact Info) Description 08/16/2020 Results Only [facility] [address] [place] [address] Junior Ray MD [address] [place] [address] Social History Tobacco Use Types [...] & BLOOD G ORDERABLES Performing Organization Address City/[facility]/ZIP Co de Phone Number [facility] [address] [place] [address] * (ABNORMAL) COMPLETE BLOOD COUNT (08/16/2020 5:20 EDT) Pathologist [facility] WBC 5.0 4.0 - 10.5 10 3/uL 08/16/2020 5:46 EDT [facility] RBC 2.65(L) 4.70 - 6.00 10 [...] Ray MD HEMATOLOGY & PF4 OR DERABLES [facility] [address] [place] [address] documented in this encounter Visit Diagnoses Not on filedocumented in this encounter Care Teams Supervisor Television Chassis Repair Relationship Specialty Start Date End Date Katia Stone, PABijalC [address] [place] [phone] PCP - General 05/02/17 documented as of this encounter
--- OUTSIDE RECORDS SUMMARY | 2023-12-15 13:00 | XMS_ITS | Encounter Summary ---
Author Organization [facility] Address [address] [place] [address] Care Team Providers Care Ash Collector Name Role Phone Katia Stone PA-C Primary Care Provider +1- [phone] Reason for Visit * Reason Onset Date Comments Discuss Possible Transfer 06/20/2021 Encounter Details Date Type Department Care Team (Late st Contact Info) Description 06/20/2021 Telephone [facility] [address] [place], [place] [phone] Amos Romero MD [address] [address] Discuss Possible Transfer Social History [...] 06/20/2021 1415 EDT PPS Call Requesting Facility: [facility] Requesting Provider: Dr. Alegria Date: 06/20/21 [...] effusion (per read from imaging 08/08/20 from [facility], this is chronic) and R iliac [...] on filedocumented in this encounter Care Teams Ash Collector Relationship Specialty Start Date End Date Katia Stone, PABijalC [address] [place] [address] PCP - General 05/02/17 documented as of this encounter
--- OUTSIDE RECORDS SUMMARY | 2023-12-15 13:00 | XMS_ITS | Encounter Summary ---
Author Organization [facility] Address [address] [place] [address] Care Team Providers Care Scada Technician Name Role Phone Katia Stone PA-C Primary Care Provider +1- [phone] Encounter Details Date Type Department Care Team (Late st Contact Info) Description 09/10/2020 Results Only [facility] [phone] Rowan Abad, TAIWO [address] [place] [address] Social History Tobacco Use Types Packs/Day [...] * PLATELET COUNT (09/10/2020 5:40 EDT) Pathologist [facility] PLATELET COUNT - PMC 250 150 - 450 10 3/uL 09/10/2020 6:29 EDT [facility] 09/10/2020 5:40 EDT 09/10/2020 6:11 EDT Narrative [facility] - 09/10/2020 6:49 EDT Comment ENOXAPARIN MONITORING Rowan Abad NP HEMATOLOGY & PF4 ORD ERABLES Performing Organization Address City/State/[facility] Co de Phone Number [facility] [address] [place] [address] * (ABNORMAL) CREATININE WITH GFR - PMC (09/10/2020 5:40 EDT) Pathologist [facility] Creatinine 0.57(L) 0.70 - 1.30 mg/dl 09/10/2020 6:42 EDT [facility] Estimated GFR >60 >60 09/10/2020 6:42 EDT [facility] Comment: EGFR UNITS: mL/min/1.73 m 2 CKD-EPI Equation used to calculate. 09/10/2020 5:40 EDT 09/10/2020 6:11 EDT Rowan Abad NP CHEMISTRY & BLOOD GA S ORDERABLES [facility] [address] [place] [address] documented in this encounter Visit Diagnoses Not on filedocumented in this encounter Care Teams Scada Technician Relationship Specialty Start Date End Date Katia Stone, MINGO [address] [place] [phone] PCP - General 05/02/17 documented as of this encounter
--- OUTSIDE RECORDS SUMMARY | 2023-12-15 13:00 | XMS_ITS | Encounter Summary ---
Author Organization [facility] Address [address] [place] [address] Care Team Providers Care Igniter Capper Name Role Phone Katia Stone PA-C Primary Care Provider +1- [phone] Encounter Details Date Type Department Care Team (Late st Contact Info) Description 02/01/2022 Lab Requisition [facility] Pathology & Laboratory Medicine - [address] [address] Outr Resulting Lab, Provider Social History Tobacco [...] Result (FLARES) Negative Negative 02/02/2022 1:45 EST [facility] FLU B RNA Result (FLBRES) Negative Negative 02/02/2022 1:45 EST [facility] RSV RNA Result (RSVRES) Positive(A) Negative 02/02/2022 1:45 EST [facility] Swab ENTIRE NASOPHARYNX / Unknown 01/31/2022 9:47 EST 02/01/2022 20:34 EST Provider Outr Resulting Lab MICROBIOLOGY - GENERAL ORDERABLES Performing Organization Address City/State/[facility] Co de Phone Number [facility] [address] [place] [address] documented in this encounter Visit Diagnoses Not on filedocumented in this encounter Additional Health Concerns Infection Onset Date Last Indicated Resolved Time RSV 01/31/2022 01/31/2022 02/10/2022 22:1 5 EST documented as of this encounter Care Teams Igniter Capper Relationship Specialty Start Date End Date Katia Stone, PABijalC [address] [facility] [place] [phone] PCP - General 05/02/17 documented as of this encounter
--- OUTSIDE RECORDS SUMMARY | 2023-12-15 13:00 | XMS_ITS | Encounter Summary ---
Author Organization [facility] Address [address] [place] [address] Care Team Providers Care Inventory Associate Name Role Phone Katia Stone PA-C Primary Care Provider +1- [phone] Encounter Details Date Type Department Care Team (Late st Contact Info) Description 08/25/2020 Results Only [facility] [phone] Rowan Abad, TAIWO [address] [place] [address] Social History Tobacco Use Types Packs/Day [...] Diagnosis Comments ORGANISM ID FROM PLATE - [facility] Routine 08/25/2020 14:15 EDT HSV (HERPES SIMPLEX VIRUS) MOLECULAR DETECTION, PCR Routine 08/25/2020 14:15 EDT CREATININE WITH GFR - PMC Routine 08/25/2020 6:09 EDT PLATELET COUNT Routine 08/25/2020 6:09 EDT documented in this encounter Results * (ABNORMAL) ORGANISM ID FROM PLATE - PMC (08/25/2020 14:15 EDT) GRAM SMEAR - PMC SEE NOTES(A) 08/27/2020 17:20 EDT [facility] Comment: RESULT: Few Neutrophils Present No bacteria seen SWATI RESULTS/ORGANISM ID - [facility] Few Usual skin jesi 08/27/2020 17:20 EDT [facility] Comment: Spec Description ?? Additional Information:: LEFT ARM Source:ARM Test [place] [id number] 08/25/2020 14:1 5 EDT 08/25/2020 14:34 EDT Narrative [facility] - 08/27/2020 17:20 EDT ARM LEFT ARM Rowan Abad NP MICROBIOLOGY - GENER AL ORDERABLES [facility] [address] [place] [address] * HERPES SIMPLEX VIRUS MOLECULAR DETECTION, PCR (08/25/2020 14:15 EDT) HERPES SIMPLEX VIRUS I DNA - PMC Negative Negative 08/26/2020 17:21 EDT [facility] HERPES SIMPLEX VIRUS 2 DNA - PMC Negative Negative 08/26/2020 19:39 EDT [facility] Comment: SOURCE:: ARM Spec Description ?? Additional Information:: LEFT ARM Source:LEFT ARM Test performed [place] [id number] 08/25/2020 14:1 5 EDT 08/25/2020 14:35 EDT [facility] - 08/26/2020 19:39 EDT ARM LEFT ARM Rowan Abad NP MICROBIOLOGY - GENER AL ORDERABLES Performing Organization Address [facility] Co de Phone Number [facility] [address] [place] [address] * (ABNORMAL) CREATININE WITH GFR - PMC (08/25/2020 6:09 EDT) Pathologist [facility] Creatinine 0.60(L) 0.70 - 1.30 mg/dl 08/25/2020 7:10 EDT [facility] Estimated GFR >60 >60 08/25/2020 7:10 EDT [facility] Comment: EGFR UNITS: mL/min/1.73 m 2 CKD-EPI Equation used to calculate. 08/25/2020 6:09 EDT 08/25/2020 6:44 EDT Rowan Abad NP CHEMISTRY & BLOOD GA S ORDERABLES Performing Organization Address City/[facility]/ZIP Co de Phone Number [facility] [address] [place] [address] * PLATELET COUNT (08/25/2020 6:09 EDT) [facility] PLATELET COUNT - [facility] 326 150 - 450 10 3/uL 08/25/2020 7:02 EDT [facility] 08/25/2020 6:09 EDT 08/25/2020 6:44 EDT [facility] - 08/25/2020 7:06 EDT Comment ENOXAPARIN MONITORING Rowan Abad SILK BLOCKER HEMATOLOGY & PF4 ORD ERABLES [facility] [address] [place] [address] documented in this encounter Visit Diagnoses Not on filedocumented in this encounter Care Teams Inventory Associate Relationship Specialty Start Date End Date Katia Stone, MINGO [address] [facility] [place] [facility] [place] [phone] PCP - General 05/02/17 documented as of this encounter
--- OUTSIDE RECORDS SUMMARY | 2023-12-15 13:00 | XMS_ITS | Encounter Summary ---
Author Organization [facility] Address [address] [place] [address] Care Team Providers Care Field Clinical Engineer Name Role Phone Katia Stone PA-C Primary Care Provider +1- [phone] Encounter Details Date Type Department Care Team (Late st Contact Info) Description 08/19/2020 Results Only [facility] [address] [place] [address] Junior Ray MD [address] [place] [address] Social History Tobacco Use Types [...] 134(L) 136 - 145 mEq/L 08/19/2020 7:41 [facility] Potassium 3.5 3.5 - 5.1 mEq/L 08/19/2020 7:41 [facility] Chloride 99 96 - 107 mEq/L 08/19/2020 7:41 [facility] CO2 Total 29.4 21 - 32 mEq/L 08/19/2020 7:41 [facility] Anion Gap 5.6 mEq/L 08/19/2020 7:41 [facility] BUN 8 7 - 25 mg/dl 08/19/2020 7:41 [facility] Creatinine 0.48(L) 0.70 - 1.30 mg/dl 08/19/2020 7:41 [facility] Estimated GFR >60 >60 08/19/2020 7:41 [facility] Comment: EGFR UNITS: mL/min/1.73 m 2 CKD-EPI Equation used to calculate. Glucose 93 74 - 106 mg/dl 08/19/2020 7:41 [facility] Calcium 8.3(L) 8.5 - 10.1 mg/dl 08/19/2020 7:41 [facility] 08/19/2020 7:10 EDT 08/19/2020 7:13 EDT Junior Ray MD CHEMISTRY & BLOOD G ORDERABLES [facility] [address] [place] [address] documented in this encounter Visit Diagnoses Not on filedocumented in this encounter Care Teams Field Clinical Engineer Relationship Specialty Start Date End Date Katia Stone, PABijalC [address] [facility] [place] [facility] [place] [phone] PCP - General 05/02/17 documented as of this encounter
--- OUTSIDE RECORDS SUMMARY | 2023-12-15 13:00 | XMS_ITS | Encounter Summary ---
Author Organization [facility] Address [address] [place] [address] Care Team Providers Care Supervisor Wet End Name Role Phone Katia Stone PA-C Primary Care Provider +1- [phone] Encounter Details Date Type Department Care Team (Late st Contact Info) Description 08/17/2023 Lab Requisition [facility] Pathology & Laboratory Medicine - [address] [address] Outr Resulting Lab, Provider Social History Tobacco [...] 150 - 1,150 mOsm/kg 08/17/2023 16:14 EDT [facility] Urine URINE / Unknown 08/16/2023 2 1:50 EDT 08/17/2023 16:03 EDT Provider Outr Resulting Lab URINALYSIS O RDERABLES [facility] [address] [place] [address] documented in this encounter Visit Diagnoses Not on filedocumented in this encounter Care Teams Supervisor Wet End Relationship Specialty Start Date End Date Katia Stone PA-C [address] [place] [phone] PCP - General 05/02/17 documented as of this encounter
--- OUTSIDE RECORDS SUMMARY | 2023-12-15 13:00 | XMS_ITS | Encounter Summary ---
Author Organization [facility] Address [address] [place] [address] Care Team Providers Care Operations Support Manager Name Role Phone Katia Stone PA-C Primary Care Provider +1- [phone] Encounter Details Date Type Department Care Team (Late st Contact Info) Description 08/17/2023 Lab Requisition [facility] Pathology & Laboratory Medicine - [address] [address] Outr Resulting Lab, Provider Social History Tobacco [...] 275 - 295 mOsm/kg 08/17/2023 16:24 EDT [facility] Blood VENOUS BLOOD / Unknown 08/16/2023 20:10 EDT 08/17/2023 16:03 EDT Provider Outr Resulting Lab CHEMISTRY & BLOOD GAS ORDERABLES [facility] [address] [place] [address] documented in this encounter Visit Diagnoses Not on filedocumented in this encounter Care Teams Operations Support Manager Relationship Specialty Start Date End Date Katia Stone PA-C [address] [place] [phone] PCP - General 05/02/17 documented as of this encounter
--- OUTSIDE RECORDS SUMMARY | 2023-12-15 13:00 | XMS_ITS | Encounter Summary ---
Author Organization [facility] Address [address] [place] [address] Care Team Providers Care Youth Career Specialist Name Role Phone Katia Stone PA-C Primary Care Provider +1- [phone] Encounter Details Date Type Department Care Team (Late st Contact Info) Description 08/25/2020 Lab Requisition [facility] Pathology & Laboratory Medicine - [address] [address] Outr Resulting Lab, Provider Social History Tobacco [...] 1, PCR Negative Negative 08/26/2020 17:16 EDT [facility] Herpes Simplex Virus Molecular Detection 2, PCR Negative Negative 08/26/2020 17:16 EDT [facility] Swab ENTIRE UPPER LIMB / Unknown 08/25/2020 14:15 EDT 08/25/2020 21:20 EDT Provider Outr Resulting Lab MICROBIOLOGY - GENERAL ORDERABLES Performing Organization Address City/State/[facility] Co de Phone Number [facility] [address] [place] [address] documented in this encounter Visit Diagnoses Not on filedocumented in this encounter Additional Health Concerns Infection Onset Date Last Indicated Resolved Time RSV 01/31/2022 01/31/2022 02/10/2022 22:1 5 EST documented as of this encounter Care Teams Youth Career Specialist Relationship Specialty Start Date End Date Katia Stone PA-C [address] [place] [address] PCP - General 05/02/17 documented as of this encounter
--- OUTSIDE RECORDS SUMMARY | 2023-12-15 13:00 | XMS_ITS | Referral Summary ---
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 Hypertensive urgency 05/01/2017 Heart block AV third degree ([facility]) 04/30/2017 Resolved Problems Problem Noted Date Diagnosed Date Resolved Date Acute on chronic diastolic c ongestive heart failure ([facility]) 05/01/2017 05/27/2017 Social History Tobacco Use Types [...] on file Medical Devices Implanted Type Area Hi Low Truck Driver Device Identifier Shelf Expiration Date Model / Serial / Lot [id number] Digifyity Mri - [id number] Implanted:05/02 (Quantity not on file) Lead [employer] 7742 INGEVITY MRI / [id number] / Description:Implant record l oaded by IMP Chronicles import. 3830 Selectsecure Mri Surescan - [id number] Implanted:05/21 (Quantity not on file) Lead Medtronic 3830 SELECTSECURE MRI SURESCAN / [id number] / Description:Implant record l oaded by [employer] Chronic[employer] import. L111 Essentio Mri - [id number] Implanted:05/02 (Quantity not on file) Pacemaker [employer] L111 ESSENTIO MRI / [id number] / Description:Implant record l oaded by IMP Chronicles import. Advance Directives For more information, please contact: [phone] * Full Code (Latest Code Status on [...] discussion? Not Discusse d Care Teams Chief Sales Officer Relationship Specialty Start Date End Date Katia Stone PA-C [address] [place] [phone] [facility] - General 05/02/17
--- OUTSIDE RECORDS SUMMARY | 2023-12-15 13:00 | XMS_ITS | Encounter Summary ---
Author Organization [facility] Address [address] [place] [address] Care Team Providers Care Machine Binding Folder Name Role Phone Katia Stone PA-C Primary Care Provider +1- [phone] Encounter Details Date Type Department Care Team (Late st Contact Info) Description 08/14/2020 Results Only [facility] [address] [place] [address] Jayesh Olmos MD [address] [place] [address] Social History Tobacco Use Types [...] 1.8 - 2.4 mg/dl 08/14/2020 6:19 EDT [facility] 08/14/2020 5:03 EDT 08/14/2020 5:51 EDT Jayesh Olmos MD CHEMISTRY & BLO OD GAS ORDERABLES [facility] [address] [place] [address] * (ABNORMAL) COMPREHENSIVE METABOLIC PANEL (CMP) (08/14/2020 5:03 EDT) Sodium 138 136 - 145 mEq/L 08/14/2020 6:19 EDT [facility] Potassium 3.6 3.5 - 5.1 mEq/L 08/14/2020 6:19 [facility] Chloride 103 96 - 107 mEq/L 08/14/2020 6:19 T [facility] CO2 Total 28.4 21 - 32 mEq/L 08/14/2020 6:19 T [facility] Anion Gap 6.6 mEq/L 08/14/2020 6:19 [facility] BUN 11 7 - 25 mg/dl 08/14/2020 6:19 [facility] Creatinine 0.51(L) 0.70 - 1.30 mg/dl 08/14/2020 6:19 [facility] Estimated GFR >60 >60 08/14/2020 6:19 [facility] Comment: EGFR UNITS: mL/min/1.73 m 2 CKD-EPI Equation used to calculate. Glucose 101 74 - 106 mg/dl 08/14/2020 6:19 [facility] Calcium 8.1(L) 8.5 - 10.1 mg/dl 08/14/2020 6:19 [facility] CALCIUM,CORRECTE D - PMC 9.5 8.5 - 10.5 mg/dl 08/14/2020 6:19 [facility] BILIRUBIN - PMC 0.40 0.00 - 1.00 mg/dl 08/14/2020 6:19 [facility] AST 34 15 - 37 U/L 08/14/2020 6:19 [facility] ALT 21 16 - 63 U/L 08/14/2020 6:19 [facility] Alkaline Phosphatase 102 46 - 116 U/L 08/14/2020 6:19 [facility] Total Protein 6.3(L) 6.4 - 8.2 g/dl 08/14/2020 6:19 [facility] Albumin 2.2(L) 3.4 - 5.0 g/dl 08/14/2020 6:19 [facility] GLOBULIN - PMC 4.1 g/dl 08/14/2020 6:19 [facility] ALBUMIN/GLOBULIN RATIO - PMC 0.5 08/14/2020 6:19 [facility] 08/14/2020 5:03 EDT 08/14/2020 5:51 EDT Jayesh Olmos MD CHEMISTRY & BLO OD GAS ORDERABLES [facility] [address] [place] [address] * (ABNORMAL) COMPLETE BLOOD COUNT AND DIFFERENTIAL (08/14/2020 5:03 EDT) WBC 5.1 4.0 - 10.5 10 3/uL 08/14/2020 6:06 [facility] RBC 2.76(L) 4.70 - 6.00 10 6/uL 08/14/2020 6:06 [facility] Hemoglobin 9.9(L) 13.5 - 18.0 g/dL 08/14/2020 6:06 [facility] HCT 28.7(L) 42.0 - 52.0 % 08/14/2020 6:06 [facility] MCV 104.0(H) 78 - 100 fL 08/14/2020 6:06 [facility] MCH 35.9(H) 27 - 31 pg 08/14/2020 6:06 [facility] MCHC 34.5 32 - 37 g/dL 08/14/2020 6:06 [facility] RDW-CV - PMC 15.9(H) <14.7 % 08/14/2020 6:06 [facility] PLATELET COUNT - PMC 189 150 - 450 10 3/uL 08/14/2020 6:06 [facility] MPV 10.8 9.2 - 12.0 fL 08/14/2020 6:06 [facility] NEUTROPHILS % (AUTO) - PMC 54.7 % 08/14/2020 6:06 [facility] LYMPHOCYTES % (AUTO) - PMC 23.0 % 08/14/2020 6:06 [facility] MONOCYTES % (AUTO) - PMC 18.2 % 08/14/2020 6:06 [facility] EOSINOPHILS % (AUTO) - PMC 2.5 NOT ESTABLISHED % 08/14/2020 6:06 [facility] BASOPHILS % (AUTO) - PMC 0.8 % 08/14/2020 6:06 [facility] Immature Granulocyte % (Auto) 0.8 % 08/14/2020 6:06 [facility] NUCLEATED RBC % (AUTO) - PMC 0.0 % 08/14/2020 6:06 [facility] NEUTROPHILS # (AUTO) - PMC 2.8 1.5 - 6.6 10 3/uL 08/14/2020 6:06 [facility] LYMPHOCYTES # (AUTO) - PMC 1.2 1.0 - 3.5 10 3/uL 08/14/2020 6:06 [facility] MONOCYTES # (AUTO) - PMC 0.9 <1.0 10 3/uL 08/14/2020 6:06 [facility] EOSINOPHILS # (AUTO) - PMC 0.1 <0.7 10 3/uL 08/14/2020 6:06 [facility] Absolute Immature Granulocyte 0.04 <0.06 10 3/uL 08/14/2020 6:06 [facility] DIFFERENTIAL METHOD Auto Differential 08/14/2020 5:52 [facility] 08/14/2020 5:03 EDT 08/14/2020 5:51 EDT Narrative [facility] - 08/14/2020 6:11 EDT Comment ENOXAPARIN MONITORING Jayesh Olmos MD PACKAGES & DNA PROBE ORDERABLES [facility] [address] [place] [address] documented in this encounter Visit Diagnoses Not on filedocumented in this encounter Care Teams Machine Binding Folder Relationship Specialty Start Date End Date Katia Stone, PABijalC [address] [place] [phone] PCP - General 05/02/17 documented as of this encounter
--- OUTSIDE RECORDS SUMMARY | 2023-12-15 13:00 | XMS_ITS | Encounter Summary ---
Author Organization [facility] Address [address] [place] [address] Care Team Providers Care Sanitation Worker Cleaning Machinery Name Role Phone Katia Stone PA-C Primary Care Provider +1- [phone] Reason for Visit * Reason Comments Diarrhea Extremity Weakness Alcohol Problem Palliative Care Symptom Management Encounter Details Date Type Department Care Team (Late st Contact Info) Description 08/25/2020 External Contact [facility] [address] [place], [place] [address] Keara Stinson MD [address] [facility] [place] [address] [place] [address] Frailty (Primary Dx); ETOH abuse; [...] chronic ETOH use who was admitted to [facility] with weakness, diarrhea, and regular [...] be receptive to formal psychotherapy. A bereavement grinder brake lining through [facility] may be a good fit as well. Re: his advance directive. 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 Supports: Brother, grandson Challenges: May [...] [facility] Social Work notes in [employer] for additional information. Present for Visit: Tim, [...] his heart attack and was transferred to [place]. He has had several cardiac issues since. He is originally from [place] and lived in the [place] area until 2018 when his medical issues became more acute. Since then, he has lived in [place], had lived with his son Tyrese until his and more recently living with Tyrese's partner Whitney. He was raised on a farm in [place] with 7 siblings. He farmed [...] specialist documented in this encounter Care Teams Sanitation Worker Cleaning Machinery Relationship Specialty Start Date End Date Katai Stone, BELLAC [address] [place] [phone] PCP - General 05/02/17 documented as of this encounter
--- OUTSIDE RECORDS SUMMARY | 2023-12-15 13:00 | XMS_ITS | Encounter Summary ---
Author Organization [facility] Address [address] [place] [address] Care Team Providers Care Cook Morning Name Role Phone Katia Stone PA-C Primary Care Provider +1- [phone] Encounter Details Date Type Department Care Team (Late st Contact Info) Description 08/25/2020 Lab Requisition [facility] Pathology & Laboratory Medicine - [address] [address] Outr Resulting Lab, Provider Social History Tobacco [...] Few Usual skin jesi 08/27/2020 15:22 EDT [facility] Smear Few Neutrophils Present(A) 08/27/2020 15:22 EDT [facility] Smear No bacteria seen(A) 08/27/2020 15:22 EDT [facility] Swab ENTIRE UPPER LIMB / Unknown 08/25/2020 14:15 EDT 08/25/2020 21:17 EDT Provider Outr Resulting Lab MICROBIOLOGY - GENERAL ORDERABLES [facility] [address] [place] [address] documented in this encounter Visit Diagnoses Not on filedocumented in this encounter Additional Health Concerns Infection Onset Date Last Indicated Resolved Time RSV 01/31/2022 01/31/2022 02/10/2022 22:1 5 EST documented as of this encounter Care Teams Cook Morning Relationship Specialty Start Date End Date Katia Stone, PABijalC [address] [facility] [place] [facility] [place] [phone] PCP - General 05/02/17 documented as of this encounter
--- OUTSIDE RECORDS SUMMARY | 2023-12-15 13:00 | XMS_ITS | Encounter Summary ---
Author Organization [facility] Address [address] [place] [address] Care Team Providers Care Pigment Pumper Name Role Phone Katia Stone PA-C Primary Care Provider +1- [phone] Encounter Details Date Type Department Care Team (Late st Contact Info) Description 09/15/2020 Results Only [facility] Lab [address] [place] [address] Junior Ray MD [address] [place] [address] Social History Tobacco Use Types [...] 4.0 - 10.5 10 3/uL 09/15/2020 5:45 [facility] RBC 3.26(L) 4.70 - 6.00 10 6/uL 09/15/2020 5:45 [facility] Hemoglobin 11.2(L) 13.5 - 18.0 g/dL 09/15/2020 5:45 [facility] HCT 31.9(L) 42.0 - 52.0 % 09/15/2020 5:45 [facility] MCV 97.9 78 - 100 fL 09/15/2020 5:45 [facility] MCH 34.4(H) 27 - 31 pg 09/15/2020 5:45 [facility] MCHC 35.1 32 - 37 g/dL 09/15/2020 5:45 [facility] RDW-CV - PMC 12.4 <14.7 % 09/15/2020 5:45 [facility] PLATELET COUNT - PMC 256 150 - 450 10 3/uL 09/15/2020 5:45 [facility] MPV 10.6 9.2 - 12.0 fL 09/15/2020 5:45 [facility] 09/15/2020 5:25 EDT 09/15/2020 5:28 EDT Junior Ray MD HEMATOLOGY & PF4 OR DERABLES [facility] [address] [place] [address] documented in this encounter Visit Diagnoses Not on filedocumented in this encounter Care Teams Pigment Pumper Relationship Specialty Start Date End Date Katia Stone, PABijalC [address] [place] [phone] PCP - General 05/02/17 documented as of this encounter
--- OUTSIDE RECORDS SUMMARY | 2023-12-15 13:00 | XMS_ITS | Clinical Summary ---
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 Hypertensive urgency 05/01/2017 Heart block AV third degree ([facility]) 04/30/2017 Resolved Problems Problem Noted Date Diagnosed Date Resolved Date Acute on chronic diastolic c ongestive heart failure ([facility]) 05/01/2017 05/27/2017 Surgical History Surgery Date Site/Laterality Comments PACEMAKER PLACEMENT 03/03/2017 - 03/02/2018 OTHER SURGICAL HISTORY 06/19/20 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 [facility] / [id number] / Description:Implant record l oaded by [employer] Chronic[employer] import. 3830 Selectsecure Mri Surescan - [id number] Implanted:05/21 (Quantity not on file) Lead Medtronic 3830 SELECTSECURE MRI SURESCAN / [id number] / Description:Implant record l oaded by [employer] Chronic[employer] import. L111 [employer]ent[employer] Mri - [id number] Implanted:05/02 (Quantity not on file) Pacemaker [employer] L111 ESSENTIO MRI / [id number] / Description:Implant record l oaded by IMP Chronicles import. Advance Directives For more information, please contact: [phone] * Full Code (Latest Code Status on [...] the discussion? Not Discusse d Care Teams Prospect Manager Relationship Specialty Start Date End Date Katia Stone, MINGO [address] [place] [phone] PCP - General 05/02/17
--- OUTSIDE RECORDS SUMMARY | 2023-12-15 13:01 | XMS_ITS | Encounter Summary ---
Author Organization [facility] Address [address] [place] [address] Care Team Providers Care Laundry Routeman Name Role Phone Katia Stone PA-C Primary Care Provider +1- [phone] Reason for Visit * Reason Onset Date Comments Other 05/16/2020 EKG results Encounter Details Date Type Department Care Team (Late st Contact Info) Description 05/16/2020 Telephone [facility] Cardiothoracic Surgery - [address] [address] Cat Sutherland RN Other (EKG results) Social [...] Patient had an EKG in January 2020. [facility] to fax report to [phone]. [facility] I have routed our PA Salvador Roca to see if he wants to repeat on [place]. documented in this encounter Plan of Treatment Not on file documented as of this encounter Visit Diagnoses Not on filedocumented in this encounter Care Teams Laundry Routeman Relationship Specialty Start Date End Date Katia Stone, PA-C [address] [place] [phone] PCP - General 05/02/17 documented as of this encounter
--- OUTSIDE RECORDS SUMMARY | 2023-12-15 13:01 | XMS_ITS | Encounter Summary ---
Author Organization [facility] Address [address] [place] [address] Care Team Providers Care General Superintendent Name Role Phone Katia Stone PA-C Primary Care Provider +1- [phone] Encounter Details Date Type Department Care Team [...] filedocumented in this encounter Care Teams General Superintendent Relationship Specialty Start Date End Date Katia Stone, MINGO [address] [place] [phone] PCP - General 05/02/17 documented as of this encounter
--- OUTSIDE RECORDS SUMMARY | 2023-12-15 13:01 | XMS_ITS | Encounter Summary ---
Author Organization [facility] Address [address] [place] [address] Care Team Providers Care Scientific Programmer Analyst Name Role Phone Katia Stone PA-C Primary Care Provider +1- [phone] Reason for Visit * Reason Onset Date Comments Appointment Related 06/19/2020 Encounter Details Date Type Department Care Team (Late st Contact Info) Description 06/19/2020 Telephone [facility] Cardiothoracic Surgery - [facility] [address] [place] [address] Ja Browne MD [address] [place] [phone] Appointment Related Social History Tobacco Use [...] - 06/19/2020 0858 EDT TC to Nila, Watch Guard Gate, at patient's PCP Office. She is aware that patient has a PAT appointment today between 4:00 and 4:45 pm with an Anesthesia Nurse. Patient is scheduled for surgery on 06/26 at 12:10 pm and should arrive in the Registration Department at 10:10 am. Watch Guard Gate states that patient has a COVID test scheduled for 06/22 at [facility]. New telephone number noted for Watch Guard Gate is [phone]. documented in this encounter Plan of Treatment Not on file documented as of this encounter Visit Diagnoses Not on filedocumented in this encounter Care Teams Scientific Programmer Analyst Relationship Specialty Start Date End Date Katia Stone PA-C [address] [place] [phone] PCP - General 05/02/17 documented as of this encounter
--- OUTSIDE RECORDS SUMMARY | 2023-12-15 13:01 | XMS_ITS | Encounter Summary ---
Author Organization [facility] Address [address] [place] [address] Care Team Providers Care Office Cashier Name Role Phone Katia Stone PA-C Primary Care Provider +1- [phone] Encounter Details Date Type Department Care Team (Latest Contact Info) Description 06/19/2020 16:00 EDT - 06/19/2020 23:59 EDT Hospital Encounter [facility] Pre-Surgical Testing [address] [place] [address] Discharge Disposition: Home or Self Care Social [...] hospital - to be organized by his comp field case manager Nila Villalobos. Pt refused to listen to instructions for surgery states I am waiting for the paper work that tells me what meds to take. This RN spoke with Cat Sutherland healthcare analyst to discuss above. Cat to call pt tomorrow to confirm informations on medications as well as instructions otherwise. She will also contact comp field case manager to confirm ride. documented in this encounter Plan of Treatment Not on file documented as of this encounter Visit Diagnoses Not on filedocumented in this encounter Care Teams Office Cashier Relationship Specialty Start Date End Date Katia Stone, PABijalC [address] [place] [phone] PCP - General 05/02/17 documented as of this encounter
--- OUTSIDE RECORDS SUMMARY | 2023-12-15 13:01 | XMS_ITS | Encounter Summary ---
Author Organization [facility] Address [address] [place] [address] Care Team Providers Care Mattress Inspector Name Role Phone Katia Stone PA-C Primary Care Provider +1- [phone] Encounter Details Date Type Department Care Team (Late st Contact Info) Description 08/08/2020 Results Only [facility] Dermatology - [facility] [place] [address] [place] [address] Virginia Quintana MD [address] [place] [address] Social History Tobacco Use Types Packs/Day Years [...] Requests ADD ON DONE 08/08/2020 21:57 EDT [facility] Comment: All tests (see tests in sample comments) have been added as requested. 08/08/2020 21:1 7 EDT 08/08/2020 21:57 EDT Narrative [facility] - 08/08/2020 21:57 EDT ED this evening Mg Virginia Quintana MD CHEMISTRY & BLOOD GA S ORDERABLES Performing Organization Address [facility] Co de Phone Number [facility] [address] [place] [address] * (ABNORMAL) MAGNESIUM (08/08/2020 16:47 EDT) Magnesium 1.7(L) 1.8 - 2.4 mg/dl 08/08/2020 22:02 EDT [facility] 08/08/2020 16:4 7 EDT 08/08/2020 16:52 EDT Virginia Quintana MD CHEMISTRY & BLOOD GA S ORDERABLES Performing Organization Address [facility] Co de Phone Number [facility] [address] [place] [address] documented in this encounter Visit Diagnoses Not on filedocumented in this encounter Care Teams Mattress Inspector Relationship Specialty Start Date End Date Katia Stone, PABijalC [address] [place] [phone] PCP - General 05/02/17 documented as of this encounter
--- OUTSIDE RECORDS SUMMARY | 2023-12-15 13:01 | XMS_ITS | Encounter Summary ---
Author Organization [facility] Address [address] [place] [address] Care Team Providers Care Third Rigger Name Role Phone Katia Stone PA-C Primary Care Provider +1- [phone] Encounter Details Date Type Department Care Team (Late st Contact Info) Description 01/13/2020 Results Only [facility] [phone] Jayesh Olmos MD [address] [place] [address] Social History Tobacco Use Types Packs/Day [...] 136 - 145 mEq/L 01/13/2020 19:16 EST LAB 01/13/2020 18:5 0 EST 01/13/2020 18:52 EST Jayesh Olmos MD CHEMISTRY & BLO OD GAS ORDERABLES Performing Organization Address [facility] Co de Phone Number LAB [address] [place] [address] * (ABNORMAL) SODIUM (01/13/2020 13:12 EST) Sodium 126(L) 136 - 145 mEq/L 01/13/2020 13:32 EST LAB 01/13/2020 13:1 2 EST 01/13/2020 13:15 EST Jayesh Olmos MD CHEMISTRY & BLO OD GAS ORDERABLES Performing Organization Address [facility] de Phone Number LAB [address] [place] [address] documented in this encounter Visit Diagnoses Not on filedocumented in this encounter Care Teams Third Rigger Relationship Specialty Start Date End Date Katia Stone PA-C [address] [place] [address] PCP - General 05/02/17 documented as of this encounter
--- OUTSIDE RECORDS SUMMARY | 2023-12-15 13:01 | XMS_ITS | Encounter Summary ---
Author Organization [facility] Address [address] [place] [address] Care Team Providers Care Head Of Strategy Name Role Phone Katia Stone PA-C Primary Care Provider +1- [phone] Reason for Visit * Reason Onset Date Comments Coordination Of Care 04/19/2020 Returning Call 04/20/2020 Encounter Details Date Type Department Care Team (Late st Contact Info) Description 04/19/2020 Telephone [facility] Cardiology - [address] [phone] Tony Rosenberg MD [address] [place] [address] [address] [place] [address] Coordination Of Care; Returning Call [...] - 04/20/2020 1508 EST Patient's case management rn returning call to Belinda. Please call. * Telephone Encounter - Belinda Falk RN - 04/20/2020 1457 EST Call placed to case management rn regarding patient unable to reach by phone. Message left on voice mail to call office back with call back number [phone]. * Telephone Encounter - Conner Mccall - 04/19/2020 1118 EST Reason for Call: Coordination Of Care Summary/Symptoms: Maru patients [facility] Counselor reaching out to get more information on [...] on filedocumented in this encounter Care Teams Head Of Strategy Relationship Specialty Start Date End Date Katia Stone PA-C [address] [place] [phone] PCP - General 05/02/17 documented as of this encounter
--- OUTSIDE RECORDS SUMMARY | 2023-12-15 13:01 | XMS_ITS | Encounter Summary ---
Author Organization [facility] Address [address] [place] [address] Care Team Providers Care Hydroelectric Station Operator Chief Name Role Phone Katia Stone PA-C Primary Care Provider +1- [phone] Encounter Details Date Type Department Care Team (Late st Contact Info) Description 05/16/2020 Documentation Visit [facility] Infectious Disease - [address] [address] Ja Browne MD [address] [facility] [address] [phone] Social History Tobacco Use Types [...] patient sent to appointment. Kem Thomson RN, [id number] documented in this encounter Plan of Treatment Not on file documented as of this encounter Visit Diagnoses Not on filedocumented in this encounter Care Teams Hydroelectric Station Operator Chief Relationship Specialty Start Date End Date Katia Stone, MINGO [address] [place] [phone] PCP - General 05/02/17 documented as of this encounter
--- OUTSIDE RECORDS SUMMARY | 2023-12-15 13:01 | XMS_ITS | Encounter Summary ---
Author Organization [facility] Address [address] [place] [address] Care Team Providers Care Programming Coordinator Name Role Phone Katia Stone PA-C Primary Care Provider +1- [phone] Reason for Visit * Reason Onset Date Comments Other 06/21/2020 patient wants to cancel surgery Encounter Details Date Type Department Care Team (Late st Contact Info) Description 06/21/2020 Telephone [facility] Cardiothoracic Surgery - [facility] [address] [place] [address] Ja Browne MD [address] [place], [place] [phone] Other (patient wants to cancel surgery) Social [...] with (Whitney). Pt was called by his Builder'S Labourer on 06/21 x 2 and finally Maru Villalobos the Builder'S Labourer sent the State Police to his house per Maru to do a welfare check as he doesn't follow instructions or return calls per Maru. He didn't go fora covid test and the ride was set up for him by Maru Builder'S Labourer and he cancelled it. He states he [...] Melania Dumas - 06/21/2020 1350 EDT Nila (Ostomy Nurse) from [facility] calling to advise that patient wants to cancel surgery on Friday06/26/2020 as he believes he has pneumonia. Per Nila, patient has not been seen by anyone and declinedcalling ambulance to take him to ED. documented in this encounter Plan of Treatment Not on file documented as of this encounter Visit Diagnoses Not on filedocumented in this encounter Care Teams Programming Coordinator Relationship Specialty Start Date End Date Katia Stone, MINGO [address] [place] [phone] PCP - General 05/02/17 documented as of this encounter
--- OUTSIDE RECORDS SUMMARY | 2023-12-15 13:01 | XMS_ITS | Encounter Summary ---
Author Organization [facility] Address [address] [place] [address] Care Team Providers Care Machine Tool Dresser Name Role Phone Katia Stone PA-C Primary Care Provider +1- [phone] Encounter Details Date Type Department Care Team (Late st Contact Info) Description 01/15/2020 Results Only [facility] [address] [place] [address] Unknown, Provider, Social History Tobacco Use Types [...] 136 - 145 mEq/L 01/15/2020 0:36 EST [facility] 01/15/2020 0:18 EST 01/15/2020 0:20 EST Provider Unknown CHEMISTRY & BLOOD GA S ORDERABLES Performing Organization Address City/State/[facility] Co de Phone Number [facility] [address] [place] [address] documented in this encounter Visit Diagnoses Not on filedocumented in this encounter Care Teams Machine Tool Dresser Relationship Specialty Start Date End Date Katia Stone, PABijalC [address] [place] [phone] PCP - General 05/02/17 documented as of this encounter
--- OUTSIDE RECORDS SUMMARY | 2023-12-15 13:01 | XMS_ITS | Encounter Summary ---
Author Organization [facility] Address [address] [place] [address] Care Team Providers Care Parachute Packer Name Role Phone Katia Stone PA-C Primary Care Provider +1- [phone] Reason for Visit * Reason Onset Date Comments Appointment Related 02/07/2020 PA REQUEST Encounter Details Date Type Department Care Team (Late st Contact Info) Description 02/07/2020 Telephone [facility] Cardiology Clinic [address] [place] [address] Ulises Reinoso MD [address] [place] [address] Appointment Related (PA REQUEST) Social [...] - 02/07/2020 1327 EST PA REQUEST ECHOCARDIOGRAM [id number] 02/29/20 DYSPNEA (R06.0) VITA LIVE THANK YOU! documented in this encounter Plan of Treatment Not on file documented as of this encounter Visit Diagnoses Not on filedocumented in this encounter Care Teams Parachute Packer Relationship Specialty Start Date End Date Katia Stone, PA-C [address] [place] [phone] PCP - General 05/02/17 documented as of this encounter
--- OUTSIDE RECORDS SUMMARY | 2023-12-15 13:01 | XMS_ITS | Encounter Summary ---
Author Organization [facility] Address [address] [place] [address] Care Team Providers Care Landscape Specialist Name Role Phone Katia Stone PA-C Primary Care Provider +1- [phone] Reason for Visit * Reason Onset Date Comments Other 06/13/2020 Encounter Details Date Type Department Care Team (Late st Contact Info) Description 06/13/2020 Telephone [facility] Cardiothoracic Surgery - [address] [address] Cat Sutherland RN Other Social History Tobacco [...] for surgery at 1210 on 06/26. His Service Attendant with PCP is setting up his ride for [place] on 06/26 and for his COVID test that will need to be done 3-4 days prior to surgery. Patient verbalized understanding. I called the patient's Service Attendant at [facility] at [phone] and left her a message (Maru Villalobos, TISH). She will be arranging his ride to [place] on DOSA and for his COVID test. I have updated our COREMAKER APPRENTICE and Beulah FAIR CM at [facility] as well. documented in this encounter Plan of Treatment Not on file documented as of this encounter Visit Diagnoses Not on filedocumented in this encounter Care Teams Landscape Specialist Relationship Specialty Start Date End Date Katia Stone, BELLAC [address] [place] [phone] PCP - General 05/02/17 documented as of this encounter
--- OUTSIDE RECORDS SUMMARY | 2023-12-15 13:01 | XMS_ITS | Encounter Summary ---
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, initial encounter Procedures XR CHEST 2 VIEWS José Miguel Roca PA-C [address] [place] [phone] Referral ID Status Reason Start Date Expiration Date Visits Re quested Visits Authorized [id number] Closed 05/16/2020 1 1 Reason for Visit * Radiology Services (Routine) - Closed Specialty Diagnoses / Procedures Referred By Jael ho Referred To Contact Diagnoses 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, initial encounter Procedures XR CHEST 2 VIEWS José Miguel Roca PA-C [address] [address] Referral ID Status Reason Start Date Expiration Date Visits Re quested Visits Authorized [id number] Closed 05/16/2020 1 1 Encounter Details Date Type Department Care Team (Latest Contact Info) Description 05/16/2020 10:57 EDT - 05/16/2020 23:59 EDT [facility] Radiology Xray Outpatient - [address] [address] 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, [...] encounter documented in this encounter Care Teams Fbi Field Agent Relationship Specialty Start Date End Date Katia Stone PA-C [address] [place] [phone] PCP - General 05/02/17 documented as of this encounter
--- OUTSIDE RECORDS SUMMARY | 2023-12-15 13:01 | XMS_ITS | Encounter Summary ---
Author Organization [facility] Address [address] [place] [address] Care Team Providers Care Engineering Production Worker Name Role Phone Katia Stone PA-C Primary Care Provider +1- [phone] Encounter Details Date Type Department Care Team (Late st Contact Info) Description 01/16/2020 Results Only [facility] [address] [place] [address] Unknown, Provider, Social History Tobacco Use Types [...] 129(L) 136 - 145 mEq/L 01/16/2020 7:26 [facility] Potassium 3.8 3.5 - 5.1 mEq/L 01/16/2020 7:26 [facility] Chloride 95(L) 96 - 107 mEq/L 01/16/2020 7:26 [facility] CO2 Total 27.5 21 - 32 mEq/L 01/16/2020 7:26 [facility] Anion Gap 7.5 mEq/L 01/16/2020 7:26 [facility] BUN 10 7 - 25 mg/dl 01/16/2020 7:26 [facility] Creatinine 0.64(L) 0.70 - 1.30 mg/dl 01/16/2020 7:26 [facility] Estimated GFR >60 >60 01/16/2020 7:29 [facility] Comment: EGFR UNITS: mL/min/1.73 m 2 CKD-EPI Equation used to calculate. Glucose 91 74 - 106 mg/dl 01/16/2020 7:26 [facility] Calcium 8.4(L) 8.5 - 10.1 mg/dl 01/16/2020 7:26 [facility] 01/16/2020 7:07 EST 01/16/2020 7:09 EST Provider Unknown CHEMISTRY & BLOOD GA S ORDERABLES Performing Organization Address City/State/[facility] Co de Phone Number [facility] [address] [place] [address] documented in this encounter Visit Diagnoses Not on filedocumented in this encounter Care Teams Engineering Production Worker Relationship Specialty Start Date End Date Katia Stone, MINGO [address] [place] [phone] PCP - General 05/02/17 documented as of this encounter
--- OUTSIDE RECORDS SUMMARY | 2023-12-15 13:01 | XMS_ITS | Encounter Summary ---
Author Organization [facility] Address [address] [place] [address] Care Team Providers Care Soda Column Operator Name Role Phone Katia Stone PA-C Primary Care Provider +1- [phone] Reason for Visit * Reason Onset Date Comments Labs Only 05/17/2020 Lab orders for p re-op blood work Encounter Details Date Type Department Care Team (Late st Contact Info) Description 05/17/2020 Telephone [facility] Cardiothoracic Surgery - [facility] [address] [place] [address] Ja Browne MD [address] [place] [phone] Labs Only (Lab orders for pre-op [...] note of 05/16. Explained again to Nila Chicken Vaccinator. * Telephone Encounter - Melania Dumas - 05/17/2020 1044 EDT Nila (automotive software engineer from [place]) calling to find out if patient's lab orders were faxed to [place]. Per Nila, patient did not have his blood drawn while here at [facility] on 05/16/2020. Nurse Consultant explained to caller that patients are usually unable to have pre-op blood bank done at any other facility but bond writer will defer to CT Surgery RN. Nila requesting return call to [phone], extension: 7. documented in this encounter Plan of Treatment Not on file documented as of this encounter Visit Diagnoses Not on filedocumented in this encounter Care Teams Soda Column Operator Relationship Specialty Start Date End Date Katia Stone, BELLAC [address] [place] [phone] PCP - General 05/02/17 documented as of this encounter
--- OUTSIDE RECORDS SUMMARY | 2023-12-15 13:01 | XMS_ITS | Encounter Summary ---
Author Organization [facility] Address [address] [place] [address] Care Team Providers Care Manager Camp Name Role Phone Katia Stone PA-C Primary Care Provider +1- [phone] Reason for Visit * Reason Onset Date Comments Other 05/19/2020 Encounter Details Date Type Department Care Team (Late st Contact Info) Description 05/19/2020 Telephone [facility] Cardiothoracic Surgery - [facility] [address] [place] [address] Ja Browne MD [address] [place] [phone] Other Social History Tobacco Use Types [...] CT Surgery Update Patient showed up at [facility] for his CBC and the mine laborer turned him away as the patient said I'll wait and have it done in [place] when I have the other blood test done. The otherblood test needed is on the day of surgery for a Pre-Op Blood Draw (type and screen). I called the lab and spoke with a Desi and she will place a note in the system so that they don't turn him away again. I asked them to call our office at [phone] if there are any questions when the patient arrives. He must have the CBC prior to surgery. I called Nila the CM at his Proivder's office and reviewed above with her. She will call the patientas she works closely with him. P) CBC at [place]. Call CT Surgery WHILE PATIENT IS THERE IF ANY QUESTIONS. * Telephone Encounter - Alma Dhillon - 05/19/2020 1244 EDT Please call bilingual case manager at PCP Office, Nila. Patient went to [facility] to have pre-op blood draw, as he was directed. [place] saw the order for blood bank draw, and would not draw any bloodwork for the patient. documented in this encounter Plan of Treatment Not on file documented as of this encounter Visit Diagnoses Not on filedocumented in this encounter Care Teams Manager Camp Relationship Specialty Start Date End Date Katia Stone, MINGO [address] [place] [phone] PCP - General 05/02/17 documented as of this encounter
--- OUTSIDE RECORDS SUMMARY | 2023-12-15 13:01 | XMS_ITS | Encounter Summary ---
Author Organization [facility] Address [address] [place] [address] Care Team Providers Care Deer Farmer Name Role Phone Katia Stone PA-C Primary Care Provider +1- [phone] Reason for Visit * Reason Onset Date Comments Confirmation 05/08/2020 Encounter Details Date Type Department Care Team (Late st Contact Info) Description 05/08/2020 Telephone [facility] Cardiothoracic Surgery - [facility] [address] [place] [address] Ja Browne MD [address] [place] [phone] Confirmation Social History Tobacco Use Types [...] 05/08/2020 1128 EST Spoke with Walker higgins [place] and confirmed patient's appointment with Dr. Browne for 05/16/2020 at 9:30 am. documented in this encounter Plan of Treatment Not on file documented as of this encounter Visit Diagnoses Not on filedocumented in this encounter Care Teams Deer Farmer Relationship Specialty Start Date End Date Katia Stone, PABijalC [address] [place] [phone] PCP - General 05/02/17 documented as of this encounter
--- OUTSIDE RECORDS SUMMARY | 2023-12-15 13:01 | XMS_ITS | Encounter Summary ---
Author Organization [facility] Address [address] [place] [address] Care Team Providers Care Automotive Parts Salesperson Name Role Phone Katia Stone PA-C Primary Care Provider +1- [phone] Reason for Visit * Reason Onset Date Comments Labs Only 05/11/2020 Encounter Details Date Type Department Care Team (Late st Contact Info) Description 05/11/2020 Telephone [facility] Acute Care Surgery - [facility] [address] [place] [address] Ja Browne MD [address] [place] [phone] Labs Only Social History Tobacco Use [...] also reviewed this with the Radiology front sight attacher on ACC 3 that he would need to be taken to the lab on Level 2 following his chest x-ray. They did not take him. I will re-enter the orders for the CBC to have drawn at [place] which is closest to the patient's home he states. I have routed our CT PACHECO [place] STOUT to re-enter the Type and Screen/ x match order to be drawn inpre-op hold on the dosa. Pt made aware to go to [facility] to have the CBC drawn on 05/17 or05/18. I confirmed with the Lab there that it's the CBC that needs to be drawn. Photographers' Model verbalized understanding and no appt needed. Pt [...] filedocumented in this encounter Care Teams Automotive Parts Salesperson Relationship Specialty Start Date End Date Katia Stone, MINGO [address] [place] [phone] PCP - General 05/02/17 documented as of this encounter
--- OUTSIDE RECORDS SUMMARY | 2023-12-15 13:01 | XMS_ITS | Encounter Summary ---
Author Organization [facility] Address [address] [place] [address] Care Team Providers Care Mental Health Director Name Role Phone Katia Stone PA-C Primary Care Provider +1- [phone] Encounter Details Date Type Department Care Team (Late st Contact Info) Description 01/14/2020 Results Only [facility] [address] [place] [address] Unknown, Provider, Social History Tobacco Use Types [...] 11.2 9.0 - 12.3 SEC 01/14/2020 6:26 [facility] PROTHROMBIN TIME WITH INR - PMC 1.1 0.8 - 1.2 RATIO 01/14/2020 6:26 [facility] Comment: Interpretive Information: Moderate Intensity [...] reasons. 01/14/2020 5:30 EST 01/14/2020 5:54 EST [facility] - 01/14/2020 6:37 EST [...] Unknown MD HEMATOLOGY & PF4 ORD ERABLES [facility] [address] [place] [address] * (ABNORMAL) SODIUM (01/14/2020 2:07 EST) Sodium 121(L) 136 - 145 mEq/L 01/14/2020 2:30 [facility] 01/14/2020 2:07 EST 01/14/2020 2:13 EST Narrative [facility] - 01/14/2020 2:41 EST Sample collected from saline lock with discard per protocol by non-laboratory staff. Provider Unknown CHEMISTRY & BLOOD GA S ORDERABLES Performing Organization Address City/State/[facility] Co de Phone Number [facility] [address] [place] [address] documented in this encounter Visit Diagnoses Not on filedocumented in this encounter Care Teams Mental Health Director Relationship Specialty Start Date End Date Katia Stone, PABijalC [address] [place] [phone] PCP - General 05/02/17 documented as of this encounter
--- OUTSIDE RECORDS SUMMARY | 2023-12-15 13:01 | XMS_ITS | Encounter Summary ---
Author Organization [facility] Address [address] [place] [address] Care Team Providers Care Railroad Car Truck Builder Name Role Phone Katia Stone PA-C Primary Care Provider +1- [phone] Encounter Details Date Type Department Care Team (Late st Contact Info) Description 01/17/2020 Results Only [facility]- [facility] [phone] Jayesh Olmos MD [address] [place] [phone] Social History Tobacco Use Types Packs/Day [...] Cortisol, S SEE COMMENTS 01/18/2020 17:25 EST [facility] Comment: Test ?Result ?Flag ??Unit ?RefValue Cortisol, S ??AM Result ? 11 ?mcg/dL ??7-25 Test Performed by: [facility] [address] [place] [address] Acetylene Cutter: Pierre Andersen M.D. Ph.D.; CLIA# [id number] 01/17/2020 7:50 EST 01/17/2020 7:51 EST Jayesh Olmos MD CHEMISTRY & BLO OD GAS ORDERABLES [facility] [address] [place] [address] * (ABNORMAL) BASIC METABOLIC PANEL,RANDOM - PMC (01/17/2020 7:50 EST) [facility] Sodium 130(L) 136 - 145 mEq/L 01/17/2020 8:13 [facility] Potassium 3.7 3.5 - 5.1 mEq/L 01/17/2020 8:13 [facility] Chloride 95(L) 96 - 107 mEq/L 01/17/2020 8:13 [facility] CO2 Total 27.4 21 - 32 mEq/L 01/17/2020 8:13 [facility] Anion Gap 7.6 mEq/L 01/17/2020 8:13 [facility] BUN 10 7 - 25 mg/dl 01/17/2020 8:13 [facility] Creatinine 0.62(L) 0.70 - 1.30 mg/dl 01/17/2020 8:13 [facility] Estimated GFR >60 >60 01/17/2020 8:18 [facility] Comment: EGFR UNITS: mL/min/1.73 m 2 CKD-EPI Equation used to calculate. Glucose 91 70 - 180 mg/dl 01/17/2020 8:13 [facility] Calcium 8.4(L) 8.5 - 10.1 mg/dl 01/17/2020 8:13 [facility] 01/17/2020 7:50 EST 01/17/2020 7:51 EST Jayesh Olmos MD CHEMISTRY & BLO OD GAS ORDERABLES Performing Organization Address City/State/[facility] Co de Phone Number [facility] [address] [place] [address] documented in this encounter Visit Diagnoses Not on filedocumented in this encounter Care Teams Railroad Car Truck Builder Relationship Specialty Start Date End Date Katia Stone PABijalC [address] [facility] [place] [phone] PCP - General 05/02/17 documented as of this encounter
--- OUTSIDE RECORDS SUMMARY | 2023-12-15 13:01 | XMS_ITS | Encounter Summary ---
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, initial encounter Procedures XR CHEST 2 VIEWS José Miguel Roca PA-C [address] [facility], [facility] [address] [place] [address] Referral ID Status Reason Start Date Expiration Date Visits Re quested Visits Authorized [id number] Closed 05/16/2020 1 1 Reason for Visit [...] Rosenberg MD [address] [place] [address] Ja Browne MD [address] [place], [place] [address] [address] [address] Referral ID Status Reason Start Date Expiration Date Visits Re quested Visits Authorized [id number] Closed 1 1 Encounter Details Date Type Department Care Team (Latest Contact Info) Description 05/16/2020 9:30 EDT Office Visit [facility] Cardiothoracic Surgery - [address] [place] [address] Ja Browne MD [address] [place] [address] Displacement of electrode lead of [...] located near the Main Entrance of the [facility] at the [facility]. Due to COVID, there is no [...] this appointment please contact our office at [phone]. We have included a local lodging list should you or your family require accommodations around the time of your surgery. Discounts may apply for family members of patients being hospitalized, please ask the hotel when booking. If you have cancer, you and your family member are eligible to stay at the [employer] [place]. The Oncology Patient Navigator can be reached at [phone] for assistance with this. You should receive [...] days prior to your surgery. Stop Saw Whiteface 14 days prior to surgery. ??? Acetaminophen [...] IF THIS CHANGES, CALL OUR OFFICE AT [phone]. Continue to take all of your other [...] helpful. ??? Do not wear any nail citizen [place], makeup, powder, lotion, deodorant or jewelry of [...] them with an appointment contact them at [phone] as the test MUST BE DONE 72 [...] to the Surgeon's office on Level 5 [facility] Outpatient office. Note: If for some [...] listed below. The Division of Cardiothoracic Surgery [address] [place] [phone] (Toll Free) MD Geovanni Toure MD Marek [...] file Gets together: Not on file Attends restorationism service: Not on file Active member of [...] Thank you. Ja Browne MD Cardiothoracic Surgery [phone] (office) 05/16/2020 10:36 * Cat Sutherland RN - 05/16/2020 0978 EDT Cardiac Surgery Nursing Pre-Operative Teaching ELECTIVES [...] daily. added in this encounter Care Teams Spool Carrier Relationship Specialty Start Date End Date Katia Stone PA-C [address] [place] [phone] PCP - General 05/02/17 documented as of this encounter
--- OUTSIDE RECORDS SUMMARY | 2023-12-15 13:01 | XMS_ITS | Encounter Summary ---
Author Organization [facility] Address [address] [place] [address] Care Team Providers Care Website Project Manager Name Role Phone Katia Stone PA-C Primary Care Provider +1- [phone] Encounter Details Date Type Department Care Team (Late st Contact Info) Description 08/08/2020 Results Only [facility] Radiology Results [address] [place] [phone] Tony Christy MD [address] [place] [address] Social History Tobacco Use Types [...] 15:3 6 EDT Narrative 08/08/2020 15:36 EDT [facility] ?[address] ?[place] [address] ?Diagnostic Imaging Report ? Signed ? Patient Name:DAVID FARFAN ? Date of :1950 ?MR Number:[id number] ? Age:69 ?Sex:M ? Category: CR ?Date [...] this report, please contact the [facility] at [phone] ? Dictated by: Temo Son MD ?D/ 15 ?? 36 ?? Transcribed by: SSOMROV ?D/T: ? E-Signed by: Temo Son MD ?D/ 19 ?? 38 ?? Procedure Note Temo Son MD - 08/08/2020 [facility] [address] [address] Diagnostic Imaging Report Signed Patient Name:DAVID FARFAN FAccount Number:[id number] Date of :1950 MRNumber:[id number] Age:69 Sex:M Category: CR Date ofExam:08/08/20 Procedure: CR: Chest; Frontal/LAT viewsAccession: [id number] Ordering Physician: Tony Christy MD Patient [...] questions regarding this report, please contact the [facility] at [phone] Dictated by: Temo Son MDD/ 15 36 Transcribed by: SSOMROVD/T: E-Signed by: Temo Son MDD/ 19 38 Tony Christy MD IMG DIAGNOSTIC DAWIT GING ORDERABLES * CT ABDOMEN PELVIS W CONTRAST (08/08/2020 15:36 EDT) Anatomical Region Laterality Modality Body, Abdomen, Pelvis, Abdomen and Pelvis Computed Tomography 08/08/2020 15:3 6 EDT Narrative 08/08/2020 15:36 EDT ?[facility]: [facility] ?[address] ?[place], [place] [address] ?Diagnostic Imaging Report ? Signed ? Patient Name:ADOLPH,DAVID Martinez ? Date of :1950 ?MR Number:[id number] ? Age:69 ?Sex:M ? Category: CT ?Date [...] please contact the [facility] at [phone] ? Dictated by: Temo Son MD ?D/ 15 ?? 36 ?? Transcribed by: DEBRA ?D/T: ? E-Signed by: Temo Son MD ?D/ 19 ?? 36 ?? Procedure Note Temo Son MD - 08/08/2020 [facility]: [address] [address] Diagnostic Imaging Report Signed Patient Name:DAVID FARFAN FAccount Number:[id number] Date of :1950 MRNumber:[id number] Age:69 Sex:M Category: CT Date ofExam:08/08/20 Procedure: CT: Abd Pelvis; wit cntrstAccession: [id number] Ordering Physician: Tony Christy MD Patient [...] questions regarding this report, please contact the [facility] at [phone] Dictated by: Temo Son MDD/ 15 36 Transcribed by: PRADEEPVD/T: E-Signed by: Temo Son MDD/ 19 36 Tony Christy MD IMG CT ORDERABLES documented in this encounter Visit Diagnoses Not on filedocumented in this encounter Additional Health Concerns Infection Onset Date Last Indicated Resolved Time RSV 01/31/2022 01/31/2022 02/10/2022 22:1 5 EST documented as of this encounter Care Teams Website Project Manager Relationship Specialty Start Date End Date Katia Stone, PA-C [address] [place] [phone] PCP - General 05/02/17 documented as of this encounter
--- OUTSIDE RECORDS SUMMARY | 2023-12-15 13:01 | XMS_ITS | Encounter Summary ---
Author Organization [facility] Address [address] [place] [address] Care Team Providers Care Die Cutter Name Role Phone Katia Stone PA-C Primary Care Provider +1- [phone] Encounter Details Date Type Department Care Team (Late st Contact Info) Description 08/09/2020 Results Only [facility] Dermatology - [facility] [place] [address] [place] [address] Virginia Quintana MD [address] [place] [address] Social History Tobacco Use Types Packs/Day Years [...] 128(L) 136 - 145 mEq/L 08/09/2020 6:09 [facility] Potassium 3.3(L) 3.5 - 5.1 mEq/L 08/09/2020 6:09 [facility] Chloride 90(L) 96 - 107 mEq/L 08/09/2020 6:09 [facility] CO2 Total 27.4 21 - 32 mEq/L 08/09/2020 6:09 [facility] Anion Gap 10.6 mEq/L 08/09/2020 6:09 [facility] BUN 11 7 - 25 mg/dl 08/09/2020 6:09 [facility] Creatinine 0.71 0.70 - 1.30 mg/dl 08/09/2020 6:09 [facility] Estimated GFR >60 >60 08/09/2020 6:09 [facility] Comment: EGFR UNITS: mL/min/1.73 m 2 CKD-EPI Equation used to calculate. Glucose 117(H) 74 - 106 mg/dl 08/09/2020 6:09 [facility] Calcium 8.3(L) 8.5 - 10.1 mg/dl 08/09/2020 6:09 [facility] CALCIUM,CORRECTE D - PMC 9.4 8.5 - 10.5 mg/dl 08/09/2020 6:24 [facility] BILIRUBIN - PMC 1.30(H) 0.00 - 1.00 mg/dl 08/09/2020 6:24 [facility] AST 62(H) 15 - 37 U/L 08/09/2020 6:24 [facility] ALT 46 16 - 63 U/L 08/09/2020 6:24 [facility] Alkaline Phosphatase 114 46 - 116 U/L 08/09/2020 6:24 [facility] Total Protein 6.7 6.4 - 8.2 g/dl 08/09/2020 6:24 [facility] Albumin 2.6(L) 3.4 - 5.0 g/dl 08/09/2020 6:24 [facility] GLOBULIN - PMC 4.1 g/dl 08/09/2020 6:24 [facility] ALBUMIN/GLOBULIN RATIO - PMC 0.6 08/09/2020 6:24 [facility] 08/09/2020 5:35 EDT 08/09/2020 5:44 EDT Virginia Quintana MD CHEMISTRY & BLOOD GA S ORDERABLES [facility] [address] [place] [address] * (ABNORMAL) COMPLETE BLOOD COUNT AND DIFFERENTIAL (08/09/2020 5:35 EDT) WBC 10.3 4.0 - 10.5 10 3/uL 08/09/2020 6:00 [facility] RBC 2.98(L) 4.70 - 6.00 10 6/uL 08/09/2020 6:00 [facility] Hemoglobin 10.6(L) 13.5 - 18.0 g/dL 08/09/2020 6:00 [facility] HCT 29.6(L) 42.0 - 52.0 % 08/09/2020 6:00 [facility] MCV 99.3 78 - 100 fL 08/09/2020 6:00 [facility] MCH 35.6(H) 27 - 31 pg 08/09/2020 6:00 [facility] MCHC 35.8 32 - 37 g/dL 08/09/2020 6:00 [facility] RDW-CV - PMC 13.8 <14.7 % 08/09/2020 6:00 [facility] PLATELET COUNT - PMC 179 150 - 450 10 3/uL 08/09/2020 6:00 [facility] MPV 11.6 9.2 - 12.0 fL 08/09/2020 6:00 [facility] NEUTROPHILS % (AUTO) - PMC 84.2 % 08/09/2020 6:00 [facility] LYMPHOCYTES % (AUTO) - PMC 7.2 % 08/09/2020 6:00 [facility] MONOCYTES % (AUTO) - PMC 8.0 % 08/09/2020 6:00 [facility] EOSINOPHILS % (AUTO) - PMC 0.0 % 08/09/2020 6:00 [facility] BASOPHILS % (AUTO) - PMC 0.1 % 08/09/2020 6:00 [facility] Immature Granulocyte % (Auto) 0.5 % 08/09/2020 6:00 [facility] NUCLEATED RBC % (AUTO) - PMC 0.0 % 08/09/2020 6:00 [facility] NEUTROPHILS # (AUTO) - PMC 8.7(H) 1.5 - 6.6 10 3/uL 08/09/2020 6:00 [facility] LYMPHOCYTES # (AUTO) - PMC 0.7(L) 1.0 - 3.5 10 3/uL 08/09/2020 6:00 [facility] MONOCYTES # (AUTO) - PMC 0.8 <1.0 10 3/uL 08/09/2020 6:00 EDT [facility] EOSINOPHILS # (AUTO) - PMC 0.0 <0.7 10 3/uL 08/09/2020 6:00 EDT [facility] Absolute Immature Granulocyte 0.05 <0.06 10 3/uL 08/09/2020 6:00 EDT [facility] DIFFERENTIAL METHOD Auto Differential 08/09/2020 5:46 EDT [facility] 08/09/2020 5:35 EDT 08/09/2020 5:44 EDT Virginia Quintana MD PACKAGES & DNA PROBE ORDERABLES Performing Organization Address City/State/[facility] Co de Phone Number [facility] [address] [place] [address] * C DIFFICILE TOXIN PCR, F > 2 YRS - PMC (08/09/2020 3:24 EDT) 08/09/2020 3:24 EDT 08/10/2020 5:39 EDT Comment:KWASI Narrative [facility] - 08/10/2020 6:26 EDT ----- ------- ?? RUN DATE: 08/10/20 ? [facility]: [facility] *LIVE* ? PAGE 1 ? RUN TIME: 625 ?Specimen Inquiry ? ----- ------- ?? PATIENT: DAVID FARFAN ? ACCT: [id number] LOC: ??MS ? U: [id number] ? AGE/SX: 69/M ? ROOM: 138 ?RE08/09/20 ?? REG DR: ??Ester Valerio MD ? : ?1950 ?? BED: ??1 ?DIS: ? STATUS: ADM Astrid ?TLOC: ? ----- ------- ? SPEC #: [id number] ?ALEX: 08/09/20-323 ? STATUS: ??COMP ? REQ #: [id number] ?RECD: 08/10/20 ? SUBM DR: Jennifer Tyson [...] Quintana MD MICROBIOLOGY - GENER AL ORDERABLES [facility] [address] [place] [address] documented in this encounter Visit Diagnoses Not on filedocumented in this encounter Care Teams Die Cutter Relationship Specialty Start Date End Date Katia Stone, PABijalC [address] [place] [phone] PCP - General 05/02/17 documented as of this encounter
--- OUTSIDE RECORDS SUMMARY | 2023-12-15 13:01 | XMS_ITS | Encounter Summary ---
Author Organization [facility] Address [address] [place] [address] Care Team Providers Care Sueding Machine Tender Name Role Phone Katia Stone PA-C Primary Care Provider +1- [phone] Reason for Visit * Reason Onset Date Comments Appointment Related 06/06/2020 Encounter Details Date Type Department Care Team (Late st Contact Info) Description 06/06/2020 Telephone [facility] Cardiothoracic Surgery - [facility] [address] [place] [address] Ja Browne MD [address] [place] [phone] Appointment Related Social History Tobacco Use [...] Telephone Encounter - Alma Dhillon - 06/06/2020 3759 EDT At her request, I have telephoned Nurse Ballistics Expert Forensic, Nila, at [facility] to advise of this patient's surgery date. [...] in this encounter Care Teams Sueding Machine Tender Relationship Specialty Start Date End Date Katia Stone, BELLAC [address] [place] [phone] PCP - General 05/02/17 documented as of this encounter
--- OUTSIDE RECORDS SUMMARY | 2023-12-15 13:01 | XMS_ITS | Encounter Summary ---
Author Organization [facility] Address [address] [place] [address] Care Team Providers Care Underbaster Name Role Phone Katia Stone PA-C Primary Care Provider +1- [phone] Encounter Details Date Type Department Care Team (Late st Contact Info) Description 08/08/2020 Results Only [facility] [address] [place] [address] Tony Christy MD [address] [place] [address] Social History Tobacco Use Types [...] 4.0 - 10.5 10 3/uL 08/08/2020 20:51 [facility] RBC 3.15(L) 4.70 - 6.00 10 6/uL 08/08/2020 20:51 [facility] Hemoglobin 11.3(L) 13.5 - 18.0 g/dL 08/08/2020 20:51 [facility] HCT 31.4(L) 42.0 - 52.0 % 08/08/2020 20:51 [facility] MCV 99.7 78 - 100 fL 08/08/2020 20:51 [facility] MCH 35.9(H) 27 - 31 pg 08/08/2020 20:51 [facility] MCHC 36.0 32 - 37 g/dL 08/08/2020 20:51 [facility] RDW-CV - PMC 13.8 <14.7 % 08/08/2020 20:51 [facility] PLATELET COUNT - PMC 199 150 - 450 10 3/uL 08/08/2020 20:51 [facility] MPV 11.2 9.2 - 12.0 fL 08/08/2020 20:51 [facility] NEUTROPHILS % (AUTO) - PMC 81.3 % 08/08/2020 20:51 [facility] LYMPHOCYTES % (AUTO) - PMC 8.6 % 08/08/2020 20:51 [facility] MONOCYTES % (AUTO) - PMC 9.5 % 08/08/2020 20:51 [facility] EOSINOPHILS % (AUTO) - PMC 0.0 % 08/08/2020 20:51 [facility] BASOPHILS % (AUTO) - PMC 0.1 % 08/08/2020 20:51 [facility] Immature Granulocyte % (Auto) 0.5 % 08/08/2020 20:51 [facility] NUCLEATED RBC % (AUTO) - PMC 0.0 % 08/08/2020 20:51 [facility] NEUTROPHILS # (AUTO) - PMC 6.1 1.5 - 6.6 10 3/uL 08/08/2020 20:51 [facility] LYMPHOCYTES # (AUTO) - PMC 0.7(L) 1.0 - 3.5 10 3/uL 08/08/2020 20:51 [facility] MONOCYTES # (AUTO) - PMC 0.7 <1.0 10 3/uL 08/08/2020 20:51 [facility] EOSINOPHILS # (AUTO) - PMC 0.0 <0.7 10 3/uL 08/08/2020 20:51 [facility] Absolute Immature Granulocyte 0.04 <0.06 10 3/uL 08/08/2020 20:51 [facility] DIFFERENTIAL METHOD Auto Differential 08/08/2020 20:48 [facility] 08/08/2020 20:4 2 EDT 08/08/2020 20:46 EDT Tony Christy MD PACKAGES & DNA PRO BE ORDERABLES [facility] [address] [place] [address] * CORONAVIRUS COVID-19 PCR ([facility]) (08/08/2020 17:07 EDT) 08/08/2020 17:0 7 EDT 08/08/2020 17:11 EDT Comment:SWAB Narrative [facility] - 08/08/2020 18:36 EDT ----- ------- ?? RUN DATE: 08/08/20 ? [facility]: [facility] *LIVE* ? PAGE 1 ? RUN TIME: 1837 ?Specimen Inquiry ? ----- ------- ?? PATIENT: DAVID FARFAN ? ACCT: [id number] LOC: ??ED ? U: [id number] ? AGE/SX: 69/M ? ROOM: ?RE08/08/20 ?? REG DR: ??Tony Christy MD ?: ?1950 ?? BED: ? DIS: ? STATUS: REG ER ? TLOC: ? ----- ------- ? SPEC #: [id number] ?ALEX: 08/08/20 ? STATUS: ??COMP ? REQ #: [id number] ?RECD: 08/08/20 ? SUBM DR: Tony Christy [...] terminated or revoked sooner. ?Testing performed on [employer] instrument ? ----- ------- ? END OF REPORT ? Tony Christy MD MICROBIOLOGY - GEN ERAL ORDERABLES Performing Organization Address [facility] Co de Phone Number [facility] [address] [place] [address] * (ABNORMAL) BNP - PMC (08/08/2020 16:47 EDT) [facility] B-TYPE NATRIURETIC PEPTIDE - PMC 398(H) <100 pg/mL 08/08/2020 17:53 EDT [facility] 08/08/2020 16:4 7 EDT 08/08/2020 16:52 EDT Tony Christy MD CHEMISTRY & BLOOD GAS ORDERABLES Performing Organization Address [facility] de Phone Number [facility] [address] [place] [address] * TROPONIN I (08/08/2020 16:47 EDT) [facility] Troponin I (ng/mL) <0.050 0 - 0.056 ng/ml 08/08/2020 17:36 EDT [facility] Comment: Interpretation: The cutoff [...] & BLOOD GAS ORDERABLES Performing Organization Address [facility] Co de Phone Number [facility] [address] [place] [address] * (ABNORMAL) COMPREHENSIVE METABOLIC PANEL (CMP) (08/08/2020 16:47 EDT) [facility] Sodium 125(L) 136 - 145 mEq/L 08/08/2020 17:29 [facility] Potassium 2.9(L) 3.5 - 5.1 mEq/L 08/08/2020 17:29 [facility] Chloride 85(L) 96 - 107 mEq/L 08/08/2020 17:29 [facility] CO2 Total 26.2 21 - 32 mEq/L 08/08/2020 17:29 [facility] Anion Gap 13.8 mEq/L 08/08/2020 17:29 [facility] BUN 8 7 - 25 mg/dl 08/08/2020 17:29 [facility] Creatinine 0.67(L) 0.70 - 1.30 mg/dl 08/08/2020 17:29 [facility] Estimated GFR >60 >60 08/08/2020 17:29 [facility] Comment: EGFR UNITS: mL/min/1.73 m 2 CKD-EPI Equation used to calculate. Glucose 101 74 - 106 mg/dl 08/08/2020 17:29 [facility] Calcium 8.5 8.5 - 10.1 mg/dl 08/08/2020 17:29 [facility] CALCIUM,CORRECTE D - PMC 9.3 8.5 - 10.5 mg/dl 08/08/2020 17:29 [facility] BILIRUBIN - PMC 1.60(H) 0.00 - 1.00 mg/dl 08/08/2020 17:29 [facility] AST 90(H) 15 - 37 U/L 08/08/2020 17:29 [facility] ALT 62 16 - 63 U/L 08/08/2020 17:29 [facility] Alkaline Phosphatase 133(H) 46 - 116 U/L 08/08/2020 17:29 [facility] Total Protein 7.6 6.4 - 8.2 g/dl 08/08/2020 17:29 [facility] Albumin 3.0(L) 3.4 - 5.0 g/dl 08/08/2020 17:29 [facility] GLOBULIN - PMC 4.6 g/dl 08/08/2020 17:29 [facility] ALBUMIN/GLOBULIN RATIO - PMC 0.6 08/08/2020 17:29 [facility] 08/08/2020 16:4 7 EDT 08/08/2020 16:52 EDT Tony Christy MD CHEMISTRY & BLOOD GAS ORDERABLES [facility] [address] [place] [address] * (ABNORMAL) COMPLETE BLOOD COUNT AND DIFFERENTIAL (08/08/2020 16:47 EDT) WBC 7.3 4.0 - 10.5 10 3/uL 08/08/2020 17:14 [facility] RBC 3.32(L) 4.70 - 6.00 10 6/uL 08/08/2020 17:14 [facility] Hemoglobin 11.8(L) 13.5 - 18.0 g/dL 08/08/2020 17:14 [facility] HCT 32.9(L) 42.0 - 52.0 % 08/08/2020 17:14 [facility] MCV 99.1 78 - 100 fL 08/08/2020 17:14 [facility] MCH 35.5(H) 27 - 31 pg 08/08/2020 17:14 [facility] MCHC 35.9 32 - 37 g/dL 08/08/2020 17:14 [facility] RDW-CV - PMC 13.7 <14.7 % 08/08/2020 17:14 [facility] PLATELET COUNT - PMC 209 150 - 450 10 3/uL 08/08/2020 17:14 [facility] MPV 11.4 9.2 - 12.0 fL 08/08/2020 17:14 [facility] NEUTROPHILS % (AUTO) - PMC 81.9 % 08/08/2020 17:14 [facility] LYMPHOCYTES % (AUTO) - PMC 9.1 % 08/08/2020 17:14 [facility] MONOCYTES % (AUTO) - PMC 8.3 % 08/08/2020 17:14 [facility] EOSINOPHILS % (AUTO) - PMC 0.0 % 08/08/2020 17:14 [facility] BASOPHILS % (AUTO) - PMC 0.1 % 08/08/2020 17:14 [facility] Immature Granulocyte % (Auto) 0.6 % 08/08/2020 17:14 [facility] NUCLEATED RBC % (AUTO) - PMC 0.0 % 08/08/2020 17:14 [facility] NEUTROPHILS # (AUTO) - PMC 5.9 1.5 - 6.6 10 3/uL 08/08/2020 17:14 [facility] LYMPHOCYTES # (AUTO) - PMC 0.7(L) 1.0 - 3.5 10 3/uL 08/08/2020 17:14 [facility] MONOCYTES # (AUTO) - PMC 0.6 <1.0 10 3/uL 08/08/2020 17:14 [facility] EOSINOPHILS # (AUTO) - PMC 0.0 <0.7 10 3/uL 08/08/2020 17:14 [facility] Absolute Immature Granulocyte 0.04 <0.06 10 3/uL 08/08/2020 17:14 [facility] DIFFERENTIAL METHOD Auto Differential 08/08/2020 16:54 [facility] 08/08/2020 16:4 7 EDT 08/08/2020 16:52 EDT Tony Christy MD PACKAGES & DNA PRO BE ORDERABLES [facility] [address] [place] [address] documented in this encounter Visit Diagnoses Not on filedocumented in this encounter Care Teams Underbaster Relationship Specialty Start Date End Date Katia Stone, MINGO [address] [place] [address] PCP - General 05/02/17 documented as of this encounter
--- OUTSIDE RECORDS SUMMARY | 2023-12-15 13:01 | XMS_ITS | Encounter Summary ---
Author Organization [facility] Address [address] [place] [address] Care Team Providers Care Residential Program Director Name Role Phone Katia Stone PA-C Primary Care Provider +1- [phone] Reason for Visit * Reason Onset Date Comments Other 06/07/[address] Surgery RN Other 06/08/2020 mailed pre-op in structions to patient Encounter Details Date Type Department Care Team (Late st Contact Info) Description 06/07/2020 Telephone [facility] Cardiothoracic Surgery - Main [place] [address] [place] [address] Ja Browne MD [address] [place] [phone] Other (questions for CT Surgery RN); [...] EDT Pre-op instructions mailed to patient at: [address] [place] [address] Address updated in [facility]. * Telephone Encounter - Cat Sutherland RN - 06/07/2020 1526 EDT Called and left message for Maru Villalobos RN at [place] [facility] Feed House Supervisor to get correct address (mailing address) for patient and then have changed in Registration as he doesn't live in [place] anymore. She was going to call us [...] located near the Main Entrance of the [facility] at the [facility]. Prior [...] this appointment, please contact our office at [phone]. We have included a local lodging list [...] days prior to your surgery. Stop Saw [place] 14 days prior to surgery. ??? Acetaminophen [...] CHANGED, CALL OUR OFFICE RIGHT AWAY AT [phone]) ??? Continue to take all of your [...] clothing. ??? Do not wear any nail syriac, makeup, powder, lotion, deodorant or jewelry of [...] timely results. The Patient Access Center at [facility] will contact you with an appointment [...] AN APPOINTMENT CONTACT THE PATIENT ACCESS CENTERAT [phone]. ??? While waiting for your surgery, you [...] on Level 3 (street level of the [facility]) for this. Following check-in, you will have a chest x-ray done. Following thechest x-ray proceed to the Surgeon's office on Level 5 [facility] Surgery Outpatient office. Note: If for some [...] listed below. The Division of Cardiothoracic Surgery [address] [place] [address] (Toll Free) MD Geovanni Toure MD Marek Polomsky, MD Chris Rokkas, MD /josh & ep 03/2020 * Telephone Encounter - Cat Sutherland RN - 06/07/[address] Surgery [place] Maru Villalobos, rug receiving clerk at [phone] EXT [phone] states patient's son and and is not on Adv Directive now. Questions call Maru Villalobos. Pre-Op Instructions mailed to patient and faxed to Maru [phone]. She will review with the patient and I will as well. Check in time for surgery on 06/26 has not been confirmed yet per our Folder Gluer Operator. Maru will set up COVID test as he needs a nascar driver and he will also need a ride to [place] for surgery which she will arrange. * Telephone Encounter - Melania Dumas - 06/07/2020 1013 EDT Maru from [place] calling with questions for CT Surgery RN. Requesting return call to [phone], extension 7. documented in this encounter Plan of Treatment Not on file documented as of this encounter Visit Diagnoses Diagnosis Encounter for preoperative screening laboratory testing for COVID-19 virus- Primary documented in this encounter Care Teams Residential Program Director Relationship Specialty Start Date End Date Katia Stone, PABijalC [address] [place] [phone] PCP - General 05/02/17 documented as of this encounter
--- OUTSIDE RECORDS SUMMARY | 2023-12-15 13:01 | XMS_ITS | Encounter Summary ---
Author Organization [facility] Address [address] [place] [address] Care Team Providers Care Drama Director Name Role Phone Katia Stone PA-C Primary Care Provider +1- [phone] Reason for Visit * Reason Comments Pacemaker Problem Encounter Details Date Type Department Care Team (Late st Contact Info) Description 04/12/2020 12:20 EST Office Visit [facility] Cardiology [address] [address] Tony Rosenberg MD [address] [place] [address] [place] [phone] Heart block AV third degree (HCC-CMS) [...] EST [facility] CARDIOLOGY - [place] PROGRESS / FOLLOWUP NOTE - 04/12/2020 PROBLEM LIST 1. Third-degree heart block, status post dual chamber pacemaker insertion, complicated by pericardial effusion and need for 12-lead repositioning. 2. Hyponatremia. 3. RA lead failure. SUBJECTIVE: Mr Mera returns to the clinic at [facility] to discuss the issues surrounding his pacemaker. [...] has had 2 recent hospitalizations, one at [facility] and the other at [facility] for treatment of hyponatremia. PHYSICAL EXAMINATION: Mr [...] Tony Rosenberg MD / CD Dictation ID: [id number] cc: documented in this encounter Plan of Treatment Not on file documented as of this encounter Visit Diagnoses Diagnosis 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, complete documented in this encounter Care Teams Drama Director Relationship Specialty Start Date End Date Katia Stone, MINGO [address] [place] [phone] PCP - General 05/02/17 documented as of this encounter
--- OUTSIDE RECORDS SUMMARY | 2023-12-15 13:01 | XMS_ITS | Encounter Summary ---
Author Organization [facility] Address [address] [place] [address] Care Team Providers Care Embedded Software Manager Name Role Phone Katia Stone PA-C Primary Care Provider +1- [phone] Reason for Visit * Reason Onset Date Comments Confirmation 06/19/2020 Encounter Details Date Type Department Care Team (Late st Contact Info) Description 06/19/2020 Telephone [facility] Cardiothoracic Surgery - [address] [address] Cat Sutherland RN Confirmation Social History Tobacco [...] the patient to call Maru Villalobos his Rn Palliative Care as she is arranging his rides for his COVID test and Surgery as well as his instructions for surgery. I also left Maru a message aswell. * Telephone Encounter - Alma Dhillon - 06/20/2020 0938 EDT FYI---Patient's Tunnel Heading Supervisor calls to say she is not able [...] well to Maru Villalobos RN the patient's Rn Palliative Care at PCP office, which she did receive. Maru had stated previously that she is arranging a ride for the patient to his COVID test 3-4 days prior to surgery and also arranging ride to [facility] on the day of surgery and will assist in helping patient understand instructions. I have called Maru Villalobos RN and left her a message to call me back on 06/20. I will also call the patient on 06/20 New phone numbers for Maru: [phone] EXT#4, EXT#[phone] Or direct line = [phone] documented in this encounter Plan of Treatment Not on file documented as of this encounter Visit Diagnoses Not on filedocumented in this encounter Care Teams Embedded Software Manager Relationship Specialty Start Date End Date Katia Stone, PABijalC [address] [place] [phone] PCP - General 05/02/17 documented as of this encounter
--- OUTSIDE RECORDS SUMMARY | 2023-12-15 13:01 | XMS_ITS | Encounter Summary ---
Author Organization [facility] Address [address] [place] [address] Care Team Providers Care Bobbin Winder Tender Name Role Phone Katia Stone PA-C Primary Care Provider +1- [phone] Encounter Details Date Type Department Care Team (Late st Contact Info) Description 07/28/2020 Results Only [facility] [address] [place], [place] [address] Katia Stone, MINGO [address] [place] [address] Social History Tobacco Use Types [...] Folate 9.0 >8.6 ng/mL 08/01/2020 9:08 EDT [facility] 07/28/2020 14:3 8 EDT 08/01/2020 9:03 EDT Katia Stone PA-C CHEMISTRY & BLOOD GAS ORDERABLES [facility] [address] [place] [address] * VITAMIN B12 (07/28/2020 14:38 EDT) Vitamin B12 265 193 - 986 pg/mL 08/01/2020 9:08 EDT [facility] Comment: The results of this assay can be falsely elevated due to the consumption of Biotin. 07/28/2020 14:3 8 EDT 08/01/2020 9:03 EDT Katia Stone PA-C CHEMISTRY & BLOOD GAS ORDERABLES Performing Organization Address City/[facility]/ZIP Co de Phone Number [facility] [address] [place] [address] * (ABNORMAL) IRON,TIBC,FERRITIN GROUP - PMC (07/28/2020 14:38 EDT) Iron 158 65 - 175 mcg/dL 08/01/2020 9:08 EDT [facility] Iron Binding Capacity 212(L) 250 - 450 mcg/dL 08/01/2020 9:08 EDT [facility] PERCENT IRON SATURATION - PMC 75(H) 14 - 50 % 08/01/2020 9:08 EDT [facility] Ferritin >1,000(H) 26 - 388 ng/mL 08/01/2020 9:08 EDT [facility] 07/28/2020 14:3 8 EDT 08/01/2020 9:03 EDT Katia Stone PA-C CHEMISTRY & BLOOD GAS ORDERABLES Performing Organization Address [facility] Co de Phone Number [facility] [address] [place] [address] * MESSAGE - PMC (07/28/2020 14:38 EDT) MESSAGE - PMC 07/29/2020 2:55 EDT [facility] Comment: WE HAVE NOT RECEIVED ORDERS. PLEASE SEND THEM TO US. THANK YOU. 07/28/2020 14:3 8 EDT 07/28/2020 15:49 EDT Narrative [facility] - 07/29/2020 2:55 EDT NO ORDERS TIGER AND LAV Katia Stone PA-C CHEMISTRY & BLOOD GAS ORDERABLES Performing Organization Address City/[facility]/ZIP Co de Phone Number [facility] [address] [place] [address] documented in this encounter Visit Diagnoses Not on filedocumented in this encounter Care Teams Bobbin Winder Tender Relationship Specialty Start Date End Date Katia Stone PA-C [address] [place] [phone] PCP - General 05/02/17 documented as of this encounter
--- OUTSIDE RECORDS SUMMARY | 2023-12-15 13:01 | XMS_ITS | Encounter Summary ---
Author Organization [facility] Address [address] [place] [address] Care Team Providers Care Nursery Attendant Name Role Phone Katia Stone PA-C Primary Care Provider +1- [phone] Encounter Details Date Type Department Care Team (Late st Contact Info) Description 01/16/2020 Results Only Imaging [facility] Radiology Results [address] [place] [address] Jayesh Olmos MD [address] [place] [address] Social History Tobacco Use Types [...] 13:1 9 EST Narrative 01/16/2020 13:19 EST ?[facility] ?[address] ?[place] [address] ?Diagnostic Imaging Report ? Signed ? Patient Name:DAVID FARFAN ? Date of :1950 ?MR Number:[id number] ? Age:69 ?Sex:M ? Category: CT ?Date of Exam:01/16/20 ? Procedure: CT: Thorax; with contrast ? Ordering Physician: Nickolas ([facility])Jayesh MD ?Patient ? CC: ?? Emeterio Wynne MD ?? Jayesh Olmos MD ([facility]) ?? Katia Mccallum ? PROCEDURE INFORMATION: [...] questions regarding this report, please contact the [facility] at [phone] ? Dictated by: Brenda Dixon MD ?D/ ?? 1319 ?? Transcribed by: SERGEY ?D/T: ? E-Signed by: Brenda Dixon MD ?D/ ?? 1528 ?? Procedure Note Brenda Dixon MD - 02/01/2020 [facility]: [address] [address] Diagnostic Imaging Report Signed Patient Name:DAVID FARFAN FAccount Number:[id number] Date of :1950 MRNumber:[id number] Age:69 Sex:M Category: CT Date ofExam:01/16/20 Procedure: CT: Thorax; with contrastAccession: [id number] Ordering Physician: Nickolas ([facility])Jayesh MD Patient CC: Emeterio Wynne MD, Michael MD ([facility]) Katia Mccallum PROCEDURE INFORMATION: Exam: CT [...] Pleural space: Loculated left pleural effusion posterolaterally [id number] by 5.4 cm in greatest transverse dimension. [...] questions regarding this report, please contact the [facility] at [phone] Dictated by: Brenda Dixon MDD/ 1319 Transcribed by: ANA/T: E-Signed by: Brenda Dixon MDD/ 1528 Jayesh Olmos MD IMG CT ORDERABL ES * XR CHEST 2 VIEWS (01/16/2020 9:51 EST) Anatomical Region Laterality Modality Computed Radiogr aphy 01/16/2020 9:51 EST Narrative 01/16/2020 9:51 EST ?[facility] ?[address] ?[place] [address] ?Diagnostic Imaging Report ? Signed ? Patient Name:DAVID FARAFN ? Date of :1950 ?MR Number:[id number] ? Age:69 ?Sex:M ? Category: CR ?Date of Exam:11/15/20 ? Procedure: CR: Chest; Frontal/LAT views ? 923 ? Ordering Physician: Nickolas ([facility]),Jayesh Coburn MD ?Patient ? CC: ?? Emeterio Wynne MD ?? Jayesh Olmos MD ([facility]) ?? Katia Mccallum ? PROCEDURE INFORMATION: [...] questions regarding this report, please contact the [facility] at [phone] ? Dictated by: Brenda Dixon MD ?D/ ?? 0951 ?? Transcribed by: SERGEY ?D/T: ? E-Signed by: Brenda Dixon MD ?D/ ?? 1121 ?? Procedure Note Brenda Dixon MD - 02/01/2020 [facility]: [address] [address] Diagnostic Imaging Report Signed Patient Name:DAVID FARFAN FAccount Number:[id number] Date of :1950 MRNumber:[id number] Age:69 Sex:M Category: CR Date ofExam:01/16/20 Procedure: CR: Chest; Frontal/LAT viewsAccession: [id number] Ordering Physician: Nickolas ([facility])Jayesh MD Patient CC: Emeterio Wynne MD, Michael MD ([facility]) Katia Mccallum PROCEDURE INFORMATION: Exam: XR [...] questions regarding this report, please contact the [facility] at [phone] Dictated by: Brenda Dixon/ 0951 Transcribed by: ANA/T: E-Signed by: Brenda Dixon MDD/ 1121 Jayesh Olmos MD IMG DIAGNOSTIC IMAGING ORDERABLES documented in this encounter Visit Diagnoses Not on filedocumented in this encounter Additional Health Concerns Infection Onset Date Last Indicated Resolved Time RSV 01/31/2022 01/31/2022 02/10/2022 22:1 5 EST documented as of this encounter Care Teams Nursery Attendant Relationship Specialty Start Date End Date Katia Stone, PABijalC [address] [place] [phone] PCP - General 05/02/17 documented as of this encounter
--- OUTSIDE RECORDS SUMMARY | 2023-12-15 13:01 | XMS_ITS | Encounter Summary ---
Author Organization [facility] Address [address] [place] [address] Care Team Providers Care Canceling Machine Operator Name Role Phone Katia Stone PA-C Primary Care Provider +1- [phone] Reason for Visit * Reason Onset Date Comments Appointment Related 05/04/2020 Encounter Details Date Type Department Care Team (Late st Contact Info) Description 05/04/2020 Telephone [facility] Cardiothoracic Surgery - [facility] [address] [place] [address] Ja Browne MD [address] [place] [phone] Appointment Related Social History Tobacco Use [...] - 05/10/2020 0953 EST Medical records from [facility] received, scanned and book marked for patient's [...] 05/08/2020, at 10:30 am. Fax out to [facility] and [facility] to request patient's Discharge Summary from recent hospitalization, as well as diagnostic testing, EKG, labs, etc. Await response. documented in this encounter Plan of Treatment Not on file documented as of this encounter Visit Diagnoses Not on filedocumented in this encounter Care Teams Canceling Machine Operator Relationship Specialty Start Date End Date Katia Stone, MINGO [address] [place] [phone] PCP - General 05/02/17 documented as of this encounter
--- OUTSIDE RECORDS SUMMARY | 2023-12-15 13:01 | XMS_ITS | Encounter Summary ---
Author Organization [facility] Address [address] [place] [address] Care Team Providers Care Shank Archer Name Role Phone Katia Stone PA-C Primary Care Provider +1- [phone] Reason for Visit * Reason Onset Date Comments Pacemaker Problem 05/01/2020 Follow-up 05/03/2020 Encounter Details Date Type Department Care Team (Late st Contact Info) Description 05/01/[address] [facility] Cardiology - [address] [place], [place] [phone] Tony Rosenberg MD [address] [place] [address] Pacemaker Problem; Follow-up Social History [...] 0909 EST Caller states that pt and case checker do not understand what is going on with pt's care. From after-visit notes 04/12, it is clear to report writer that provider intends for pt to see Dr. Browne at [facility]. Caller, case checker, and pt are unaware of a referral being sent to [facility], and seem to think that provider is still following care. Please call pt and case checker directly to let them know exactly what the plan of care is. * Telephone Encounter - Brenda Bocanegra - 05/01/2020 1409 EST Spoke with Nila. We don't have much device information here as the patient is managed by [facility]. They are wanting follow up from Dr. Rosenberg regarding the next steps for pt's device care. Told them I would see what I can do to help. * Telephone Encounter - Haja Pavon - 05/01/2020 1304 EST Nila @ [facility] called to follow-up on pacemaker issues [...] documented as of this encounter Care Teams Shank Archer Relationship Specialty Start Date End Date Katia Stone, PABijalC [address] [place] [phone] PCP - General 05/02/17 documented as of this encounter
--- OUTSIDE RECORDS SUMMARY | 2023-12-15 13:01 | XMS_ITS | Encounter Summary ---
Author Organization [facility] Address [address] [place] [address] Care Team Providers Care Hot Die Picker Name Role Phone Katia Stone PA-C Primary Care Provider +1- [phone] Encounter Details Date Type Department Care Team (Late st Contact Info) Description 08/09/2020 Results Only Imaging [facility] Radiology Results [address] [place], [place] [address] Ester Valerio MD [address] [place] [address] [place] [address] Social History Tobacco Use Types [...] 8:33 EDT Narrative 08/09/2020 16:38 EDT ?[facility]: [facility] ?[address] ?[place] [address] ?Diagnostic Imaging Report ? Signed ? Patient Name:DAVID FARFAN ? Date of :1950 ?MR Number:[id number] ? Age:69 ?Sex:M ? Category: CR ?Date [...] Procedure Note Poncho Erickson MD [facility] [address] [address] Diagnostic Imaging Report Signed Patient Name:DAVID FARFAN FAccount Number:[id number] Date of :1950 MRNumber:[id number] Age:69 Sex:M Category: CR Date ofExam:08/09/20 Procedure: CR: Abd; 2 ViewsAccession: [id number] Ordering Physician: Ester Valerio MD Patient CC: [...] documented as of this encounter Care Teams Hot Die Picker Relationship Specialty Start Date End Date Katia Stone PA-C [address] [place] [address] PCP - General 05/02/17 documented as of this encounter
--- OUTSIDE RECORDS SUMMARY | 2023-12-15 13:01 | XMS_ITS | Encounter Summary ---
Author Organization [facility] Address [address] [place] [address] Care Team Providers Care Microbiological Lab Technician Name Role Phone Katia tSone PA-C Primary Care Provider +1- [phone] Reason for Visit * Reason Onset Date Comments Appointment Related 06/16/2020 Encounter Details Date Type Department Care Team (Late st Contact Info) Description 06/16/[address] [facility] Cardiothoracic Surgery - [address] [address] Ghazala Sutherland RN Appointment Related Social History [...] Encounter - Ghazala Sutherland RN - 06/16/[address] Surgery Update Message left for pt that the Pre-Op Center will call him on Monday 06/19 between 4 - 4:45 PM. I alsoleft him a message to be sure and connect with his Test Preparation Tutor at PCP office to get his COVID test3-4 days prior to surgery. Surgery is on 06/26. GHAZALA SUTHERLAND RN documented in this encounter Plan of Treatment Not on file documented as of this encounter Visit Diagnoses Not on filedocumented in this encounter Care Teams Microbiological Lab Technician Relationship Specialty Start Date End Date Katia Stone, PABijalC [address] [place] [address] PCP - General 05/02/17 documented as of this encounter
--- OUTSIDE RECORDS SUMMARY | 2023-12-15 13:01 | XMS_ITS | Encounter Summary ---
Author Organization [facility] Address [address] [place] [address] Care Team Providers Care Battery Technician Name Role Phone Katia Stone PA-C Primary Care Provider +1- [phone] Reason for Visit * Reason Onset Date Comments Appointment Related 06/22/2020 Encounter Details Date Type Department Care Team (Late st Contact Info) Description 06/22/2020 Telephone [facility] Cardiothoracic Surgery - [facility] [address] [place] [address] Ja Browne MD [address] [place] [phone] Appointment Related Social History Tobacco Use [...] on filedocumented in this encounter Care Teams Battery Technician Relationship Specialty Start Date End Date Katia Stone, BELLAC [address] [place] [phone] PCP - General 05/02/17 documented as of this encounter
--- OUTSIDE RECORDS SUMMARY | 2023-12-15 13:01 | XMS_ITS | Encounter Summary ---
Author Organization [facility] Address [address] [place] [address] Care Team Providers Care Clean Up Person Name Role Phone Katia Stone PA-C Primary Care Provider +1- [phone] Encounter Details Date Type Department Care Team (Late st Contact Info) Description 01/15/2020 Results Only [facility]- [facility] [phone] Jayesh Olmos MD [address] [place] [phone] Social History Tobacco Use Types Packs/Day [...] MD CHEMISTRY & BLO OD GAS ORDERABLES [facility] [address] [place] [address] * (ABNORMAL) HEPATIC & CMP COMBO,FASTING - [...] MD CHEMISTRY & BLO OD GAS ORDERABLES [facility] [address] [place] [address] * (ABNORMAL) COMPLETE BLOOD COUNT (01/15/2020 6:16 [...] & PF 4 ORDERABLES Performing Organization Address City/State/[facility] Co de Phone Number [facility] [address] [place] [address] documented in this encounter Visit Diagnoses Not on filedocumented in this encounter Care Teams Clean Up Person Relationship Specialty Start Date End Date Katia Stone, PABijalC [address] [place] [phone] PCP - General 05/02/17 documented as of this encounter
--- OUTSIDE RECORDS SUMMARY | 2023-12-15 13:01 | XMS_ITS | Encounter Summary ---
Author Organization [facility] Address [address] [place] [address] Care Team Providers Care Metalizing Machine Operator Name Role Phone Katia Stone PA-C Primary Care Provider +1- [phone] Encounter Details Date Type Department Care Team (Late st Contact Info) Description 01/14/2020 Results Only [facility]- [facility] [phone] Jayesh Olmos MD [address] [place] [phone] Social History Tobacco Use Types Packs/Day [...] 136 - 145 mEq/L 01/14/2020 19:38 EST LAB 01/14/2020 19:1 0 EST 01/14/2020 19:19 EST Jayesh Olmos MD CHEMISTRY & BLO OD GAS ORDERABLES Performing Organization Address [facility] Co de Phone Number LAB [address] [place] [address] * (ABNORMAL) SODIUM (01/14/2020 14:55 EST) Sodium 125(L) 136 - 145 mEq/L 01/14/2020 15:17 EST LAB 01/14/2020 14:5 5 EST 01/14/2020 14:59 EST Jayesh Olmos MD CHEMISTRY & BLO OD GAS ORDERABLES Performing Organization Address [facility]/ZIP Co de Phone Number LAB [address] [place] [address] * (ABNORMAL) COMPLETE BLOOD COUNT (01/14/2020 5:30 [...] CENTER LAB 01/14/2020 5:30 EST 01/14/2020 5:54 [facility] - 01/14/2020 6:37 EST [...] Olmos MD HEMATOLOGY & PF 4 ORDERABLES LAB [address] [place] [address] * MAGNESIUM (01/14/2020 5:30 EST) Magnesium 2.0 1.8 - 2.4 mg/dl 01/14/2020 6:30 [facility] 01/14/2020 5:30 EST 01/14/2020 5:54 EST [facility] - 01/14/2020 6:33 EST Sample [...] MD CHEMISTRY & BLO OD GAS ORDERABLES LAB [address] [place] [address] * (ABNORMAL) BASIC METABOLIC PANEL,RANDOM - PMC [...] LAB 01/14/2020 5:30 EST 01/14/2020 5:54 EST [facility] - 01/14/2020 6:33 EST Sample [...] MD CHEMISTRY & BLO OD GAS ORDERABLES LAB [address] [place] [address] documented in this encounter Visit Diagnoses Not on filedocumented in this encounter Care Teams Metalizing Machine Operator Relationship Specialty Start Date End Date Katia Stone, PARosanna [address] [place] [phone] PCP - General 05/02/17 documented as of this encounter
--- OUTSIDE RECORDS SUMMARY | 2023-12-15 13:02 | XMS_ITS | Encounter Summary ---
Author Organization [facility] Address [address] [place] [address] Care Team Providers Care German Teacher Name Role Phone Katia Stone PA-C Primary Care Provider +1- [phone] Encounter Details Date Type Department Care Team (Late st Contact Info) Description 08/13/2018 Historical Results Only [facility] [address], [place] [address] Katia Stone, MINGO [address] [place] [address] Social History Tobacco Use Types [...] Sodium 125(L) 136 - 145 08/13/2018 12:52 [facility] Potassium 4.9 3.5 - 5.1 08/13/2018 12:52 [facility] Chloride 91(L) 96 - 107 08/13/2018 12:52 [facility] CO2 Total 25.4 21 - 32 08/13/2018 12:52 [facility] Anion Gap 8.6 08/13/2018 12:52 [facility] BUN 7 7 - 25 08/13/2018 12:52 [facility] Creatinine 0.59(L) 0.7 - 1.30 08/13/2018 12:52 [facility] Estimated GFR >60 >60 08/13/2018 12:53 [facility] Comment: EGFR UNITS: mL/min/1.73 m 2 CKD-EPI Equation used to calculate. Glucose 88 FASTIN -99 08/13/2018 12:52 [facility] Calcium 8.1(L) 8.5 - 10.5 08/13/2018 12:52 [facility] CALCIUM,CORRECTE D - PMC 8.7 8.5 - 10.5 08/13/2018 12:52 [facility] BILIRUBIN - PMC 0.20 0.00 - 1.00 08/13/2018 12:52 [facility] AST 40(H) 15 - 37 08/13/2018 12:52 [facility] ALT 45 12 - 78 08/13/2018 12:52 [facility] Alkaline Phosphatase 112 46 - 116 08/13/2018 12:52 EDT [facility] Total Protein 7.1 6.4 - 8.2 08/13/2018 12:52 [facility] Albumin 3.2(L) 3.4 - 5.0 08/13/2018 12:52 T [facility] GLOBULIN - PMC 3.9 08/13/2018 12:52 T [facility] ALBUMIN/GLOBULIN RATIO - PMC 0.8 08/13/2018 12:52 T [facility] 08/13/2018 11:2 8 EDT 08/13/2018 11:37 EDT Katia Stone PA-C CHEMISTRY & BLOOD GAS ORDERABLES [facility] documented in this encounter Visit Diagnoses Not on filedocumented in this encounter Care Teams German Teacher Relationship Specialty Start Date End Date Katia Stone PA-C [address] [place] [phone] PCP - General 05/02/17 documented as of this encounter
--- OUTSIDE RECORDS SUMMARY | 2023-12-15 13:02 | XMS_ITS | Encounter Summary ---
Author Organization [facility] Address [address] [place] [address] Care Team Providers Care Ribber Name Role Phone Katia Stone PA-C Primary Care Provider +1- [phone] Reason for Visit * Reason Onset Date Comments Follow-up 12/23/2019 TE 11/02 Encounter Details Date Type Department Care Team (Late st Contact Info) Description 12/23/2019 Telephone [facility] Cardiology - [address] [place], [place] [phone] Tony Rosenberg MD [address] [place] [address] [address] [place] [address] Follow-up (TE 11/02) Social History [...]
--- OUTSIDE RECORDS SUMMARY | 2023-12-15 13:02 | XMS_ITS | Encounter Summary ---
Author Organization [facility] Address [address] [place] [address] Care Team Providers Care Scarf And Anneal Operator Name Role Phone Katia Stone PA-C Primary Care Provider +1- [phone] Reason for Visit * Reason Comments Shortness of Breath Encounter Details Date Type Department Care Team (Late st Contact Info) Description 06/11/2017 13:40 EDT Office Visit [facility] Cardiology [address] [address] Tony Rosenberg MD [address] [place] [address] [place] [phone] SOB (shortness of breath) (Primary Dx) [...] Rosenberg MD - 06/11/2017 0000 EDT [facility] CARDIOLOGY - [place] PROGRESS / FOLLOWUP NOTE - 06/11/2017 PROBLEM LIST: 1. Third-degree heart block. a. Status post dual chamber pacemaker insertion. b. Pericardial effusion. c. Pacemaker generator lead repositioning and pericardiocentesis. 2. Large pleural effusions. 3. Hypertension. 4. Hyponatremia. SUBJECTIVE: Mr Mera was seen at the [facility] after his recent hospitalization at the [facility] for AV block. He had a [...] substantial bilateral pleural effusions. Echocardiogram done in [facility] shows preserved LV systolic function. No [...] Mr Mera to be admitted to the [facility] tomorrow for bilateral thoracentesis. Tony Rosenberg MD 03 51 PM - Tony Rosenberg MD ln Dictation ID: [id number] cc: Shailesh Torres MD, [address] [address] Katia Mccallum PA-C, [place] [address] [address] [place] [address] documented in this encounter Plan of Treatment Not on file documented as of this encounter Visit Diagnoses Diagnosis SOB (shortness of breath)- Primary Shortness of breath documented in this encounter Care Teams Scarf And Anneal Operator Relationship Specialty Start Date End Date Katia Stone PA-C [facility] [address] [place] [phone] PCP - General 05/02/17 documented as of this encounter
--- OUTSIDE RECORDS SUMMARY | 2023-12-15 13:02 | XMS_ITS | Encounter Summary ---
Author Organization [facility] Address [address] [place] [address] Care Team Providers Care Channel Marketing Specialist Name Role Phone Katia Stone PA-C Primary Care Provider +1- [phone] Reason for Visit * Reason Onset Date Comments Medication Questions 07/16/2017 Encounter Details Date Type Department Care Team (Late st Contact Info) Description 07/16/2017 Telephone [facility] Cardiology - [place] [place] [address] Caitie Atwood, TAIWO [address] [facility] [address] [place] [address] Medication Questions Social History Tobacco [...] on filedocumented in this encounter Care Teams Channel Marketing Specialist Relationship Specialty Start Date End Date Katia Stone, MINGO [address] [place] [phone] PCP - General 05/02/17 documented as of this encounter
--- OUTSIDE RECORDS SUMMARY | 2023-12-15 13:02 | XMS_ITS | Encounter Summary ---
Author Organization [facility] Address [address] [place] [address] Care Team Providers Care Machine Package Sealer Name Role Phone Katia Stone PA-C Primary Care Provider [phone] Reason for Referral * Consult (Routine) - New Request Specialty Diagnoses / Procedures Referred By Contgaye t Referred To Contact Diagnoses Heart failure, unspecified HF chronicity, unspecified heart failure type (HCC-CMS) Subacute effusive constrictive pericarditis Michael Pratt MD Pending sale to [facility] [place] [address] Referral ID Status Reason Start Date Expiration Date Visits Requested Visits Authorized [id number] New Request Specialty Services Required 06/16/2017 1 1 Question Answer Reason for Request: f/u constrictive pericarditis Expected Discharge Date (Inpatient Only): 06/16/2017 [facility] Comments With Dr. Torres * Follow Up (3 - 10 Business Days) - Receiving Office to Obtain Authorization Specialty Diagnoses / Procedures Referred By Contac t Referred To Contact Diagnoses Heart failure, unspecified HF chronicity, unspecified heart failure type (HCC-CMS) Subacute effusive constrictive pericarditis Bg Atwood MD [address] [facility] [address] [place] [address] Referral ID Status Reason Start Date Expiration Date Visits Requested Visits Authorized [id number] Receiving Office to Obtain Authorization Continuity of Care 8 1 1 Question Answer Reason for Request: f/u hospitalization for constrictive pericarditis Expected Discharge Date (Inpatient Only): 06/16/2017 * Referral (Routine/Next Available) - New Request Specialty Diagnoses / Procedures Referred By Jael t Referred To Contact Diagnoses Heart failure, unspecified HF chronicity, unspecified heart failure type ([facility]-CMS) Subacute effusive constrictive pericarditis Bg Atwood MD [address] [place] [id number] [address] Referral ID Status Reason Start Date Expiration Date Visits Requested Visits Authorized [id number] New Request Specialty Services Required 06/16/2017 1 1 Question Answer I certify that this patient is under my care and that I, or another Medicare allowed practitioner (DO CHAMP, PACHECO) working with me, had a ffkl-xz-ddas encounter with this patient on this date: 06/16/2017 I further certify that the toio-uk-ngcv encounter was in whole or in part [...] ambulation Nursing skilled care requested: Nursing asessment MCC assessment needed related to this encounter: Response to new or changed medication Expected Discharge Date (Inpatient Only): 06/16/2017 Encounter Details Date Type Department Care Team (Late st Contact Info) Description 06/12/2017 17:51 EDT - 06/16/2017 16:57 EDT Hospital Encounter [facility] Cardiac/Telemetry Unit [address] [place] [address] Seng Rand MD PhD [address] [facility] [address] [place] [address] Bg Atwood MD [address] [facility] [address] [place] [phone] Tony Rosenberg MD [address] [address] Heart failure, unspecified HF chronicity, [...] in this encounter Discharge Summaries * Bg tAwood MD - 06/16/2017 1518 EDT Cardiology Discharge Summary Primary Care Provider: Katia Mccallum Attending Physician: Bg Atwood MD Admit Date: 06/12/2017 Discharge Date: 06/16/2017 Disposition: Home with home health Problems and Procedures Admitting Diagnosis: Heart failure, unspecified HF chronicity, unspecified heart failure type ([facility]-CMS) 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 Heart failure ([facility]) 06/12/2017 Resolved Hospital Problems Diagnosis Date [...] orthopnea on a follow up exam at [facility]. He was transferred to [facility] due to concern for subacute constrictive [...] Component Value Units Date/Time Bacterial Culture/Smear, Fluid [[id number]] Collected: 06/13/17 0826 Lab Status: Preliminary result Specimen: FOSMIC from Pleural Fluid Updated: 06/15/17 0729 Gram Smear Result Polys present No bacteria seen Result No growth Bacterial Culture, Blood [[id number]] Collected: 06/12/172246 Lab Status: In process Specimen: Blood Updated: 06/12/172320 Bacterial Culture, Blood [[id number]] Collected: 06/12/172239 Lab Status: In process Specimen: [...] 05/01/2017 Discharge Follow Up Appointments Scheduled with [facility] Upcoming Appointments Aug 06, 2017 15:20 EDT Follow Up Return with Tony Rosenberg MD [facility] Cardiology [facility] (--) [address] [place] [address] Appointments Outside of [facility] We Will Schedule Follow-up appointments and procedures Amb Consult/Follow Up Cardiology With Dr. Torres Reason for Request: f/u constrictive pericarditis Expected Discharge Date (Inpatient Only): 06/16/2017 Practice Site (External Referral Only): [facility] Authorizing Provider: Michael Pratt MD Amb Consult/Follow Up Primary Care Physician Reason for Request: f/u hospitalization for constrictive pericarditis Expected Discharge Date (Inpatient Only): 06/16/2017 Authorizing Provider: Bg Atwood MD Home Health Agency-Other I certify that this patient is under my care and that I, or another Medicare authorized non-physician practitioner (PA or CASH POSTING CLERK) or resident working with me, had a mqpi-sh-pqgi encounter with this patient on this date: 06/16/2017 I further certify that the dvor-hs-sqmw encounter was in whole or in part related to the reason thepatient needs home health care.: Yes The patient has had a icfe-ur-mbmf visit by me or one of my [...] and ambulation Skilled Care Requested: Nursing asessment MCC assessment needed related to this encounter: Response to new or changed medication Expected Discharge Date (Inpatient Only): 06/16/2017 Authorizing Provider: Bg Atwood MD Additional Information: Please follow up at [facility] with Dr. Tony Rosenberg on August 06, 2017 at 3:20 pm. If you have questions please call [phone]. Please follow up with your primary care physician, Katia Mccallum, on June 17, 2017 at 10:45 am. Ifyou have any questions please call [phone]. Studies We Will Schedule Appointments We Recommend but have not been Scheduled None Michael Pratt MD 06/16/2017 15:18 I evaluated the patient and agree with the discharge summary as outlined above by Dr. Pratt. Mr. Farfan was feeling much better today. 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 BG ATWOOD MD Attending Tractor Operator Helper [facility] documented in this encounter Discharge Instructions * Appointments* Desi Thomas - 06/16/2017 12:01 EDT Please follow up at [facility] with Dr. Tony Rosenberg on August 06, 2017 at 3:20 pm. If you have questions please call [phone]. Please follow up with your primary care physician, Katia Mccallum, on June 17, 2017 at 10:45 am. Ifyou have any questions please call [phone]. * Discharge Instr - Other Orders* Melida Natarajan, RN - 06/13/2017 8:26 EDT Remember the [...] Care Everywhere. * HEART FAILURE: AVOIDING TRIGGERS (BOLIVIAN) documented in this encounter Medications at Time [...] Progress Notes * Desi Villatoro RN - 06/16/2017 1657 EDT CM DISCHARGE NOTE: Pt was discharged home with Home Health Services. D/C Summary was faxed to his Skiing Instructor at Dr. Mccallum's office. Desi Villatoro RN #[id number] * Tej Casanova MD - 06/15/2017 0816 [...] daily with taper in near future - SHOW HOST OR HOSTESS torsemide 40mg daily Hypokalemia/Hypomagnesemia -replete as needed [...] attestation - Bg Atwood MD - 06/15/2017 3647 EDT I have seen and evaluated the patient. I agree with the assessment and plan as outlined above by Dr. Casanova. He seems to be doing better on the steroids. I encouraged ambulation. We will likely cancel the right heart catheterization for tomorrow. BG ATWOOD MD Attending Tractor Operator Helper [facility] [...] daily with taper in near future - SHOW HOST OR HOSTESS torsemide 40mg daily Pleural Effusions: Associated with [...] not lie flat. BG ATWOOD MD Attending Tractor Operator Helper [facility] [...] into our system or repeat echo - SHOW HOST OR HOSTESS torsemide 40mg daily - Medical management pending [...] to d/c. Magalis Berger RD, CD X/cover #[id number] * Ameena Teixeira - 06/13/2017 1158 EDT Initial Case Management/Social Work Assessment and Discharge Plan/Readmission Risk Assessment REASON FOR ADMISSION: Heart failure ([facility]) Patient understands reason for admission: Yes PATIENT CONTACT INFO VERIFIED: Yes PATIENT ADDRESS VERIFIED: Yes (David is staying with his son Mo temporarily in [place]. He did not know the address) LIVING [...] his sons have been driving him) CULTURAL, SYNAGOGUE and/or LANGUAGE factors affecting health care/discharge planning: [...] device: None Community Services: Home health, [facility], [facility]-none of one time a week Will you [...] AID - [address] - [place], [place] - [address] [facility] [address] [facility] - [place], [place] - [address] [address] Home Health: [facility] Other: Other (enter in comments) (he has a transition of care specialist through [facility]) POST HOSPITAL TRANSITION PLAN: Likely Dc to his son's house with continuation of HH RN services. Hereports that he has only been drinking 1-2 beers/day. He denied any concern over his ETOH use. AMEENA TEIXEIRA 06/13/2017 11:59 For Ivelisse Rueda * Desi Villatoro, RN - 06/13/2017 0942 EDT 06/13: Received a call from Yessica Card at [facility]. She is the patient's Skiing Instructor. I've faxed patient's H&P to her and will keep her up to date on patient's progress and projected d/c. Yessica Card, Skiing Instructor P: [phone] F: [phone] [id number] * Renetta Martini, TISH - 06/13/2017 0954 EDT Pt received from [facility] to angio [...] Notes * Denilson Shannon MD - 06/12/2017 7217 EDT Cardiology Admitting H&P Admit Date: 06/12/2017 [...] follow up performed by Dr. Rosenberg in [place] (has now completed 14 days of ibuprofen). After seeing Dr. Rosenberg yesterday and having an echo performed, he was noted to have worsening dyspnea, orthopnea, and increasing pleural effusions. He denies chest pain, diaphoresis, arm/jaw pain, wheezing, nausea/vomiting, change in bowels, or change in urination. He notes an ongoing cough with worsening abdominal pain from coughing so frequently. He was transferred to [facility] for consideration of thoracentesis and [...] tomorrow (either bedside or IR guided) - SHOW HOST OR HOSTESS torsemide 40mg daily - NPO after midnight [...] Addendum 66 yo man who lives in [place] and follows with Dr. Rosenberg with a [...] - team attempted to obtain echo from [facility] however unable to do so until AM - if no other etiology found consider switching to colchicine + prednisone - blood cultures Denilson Shannon MD Directory Clerk Pager [phone] 06/12/2017 21:56 Associated attestation - gB Atwood MD - 06/13/2017 0906 EDT I have seen and evaluated the patient. I agree with the assessment and plan as outlined above by Dr. Shannon. I am concerned that Mr. Farfan has constrictive physiology given his recent acute pericarditis and volume overload at this point. I need to review his echocardiogram, and we are going to obtain an invasive hemodynamic assessment today (right heart catheterization). He is going to have a thoracentesis as well. BG ATWOOD MD Attending Tractor Operator Helper [facility] documented in this encounter Procedure Notes * Randy Ireland PA-C - 06/13/2017 0839 EDT IR Procedure Note Procedure: Requested U/S guided bilateral thoracentesis Date Performed: 06/13/2017 Radiologist/Aviation Technician Aircraft(s):MD Andrea /MINGO Ireland Sedation/Anesthesia: local Time Out: [...] without difficulty. Discharge home orders received. Action: [facility] called [...] with patient.Informed pt that he will have [facility] on Friday. R: Pt verbalized understanding of his plan of care. * Plan of Care - Mila Mcallister RN - 06/14/2017 7388 EDT Problem: Daily Care Plan Goals Goal: [...] Goal: Care Plan Documentation Outcome: Ongoing 06/12/17 195 Care Plan Focus Area of Focus Circulatory [...] for CHF exacerbation from home accompanied by terry at bedside. Alert, oriented,pleasant. Denies pain/shortness of [...] to room/call garza system. Admission database completed. air sampling and monitoring applied. Plan of care reviewed to include sodium restriction and fluid monitoring. Patient verbalizes understanding. Terry at bedside very concerned with care, trying [...] EDT) 06/29/2017 16:0 1 EDT Scan 2 Visual Basic Programmer PROCEDURE/MINOR VELMA GICAL ORDERABLES * IMPLANT RECORD - SCANNED (06/19/2017 14:15 EDT) 06/19/2017 14:1 5 EDT Scan 2 Visual Basic Programmer PROCEDURE/MINOR VELMA GICAL ORDERABLES * ECG REPORT - SCANNED (06/19/2017 14:15 EDT) 06/19/2017 14:1 5 EDT Scan 2 Visual Basic Programmer PROCEDURE/MINOR VELMA GICAL ORDERABLES * MAGNESIUM (06/16/2017 5:39 EDT) Magnesium 1.9 1.7 - 2.8 mg/dl 06/16/2017 6:48 EDT [facility] Blood specimen (specimen) BLOOD SPECIMEN / Unknown 06/16/2017 5:39 EDT 06/16/2017 6:15 EDT Michael Pratt MD CHEMISTRY & BLOOD GA S ORDERABLES [facility] [address] [place] [address] * (ABNORMAL) ELECTROLYTES (06/16/2017 5:39 EDT) Sodium 133(L) 136 - 145 mEq/L 06/16/2017 6:48 EDT [facility] Potassium 3.7 3.5 - 5.0 mEq/L 06/16/2017 6:48 T [facility] Chloride 90(L) 96 - 110 mEq/L 06/16/2017 6:48 T [facility] CO2 33(H) 22 - 32 mEq/L 06/16/2017 6:48 T [facility] Blood specimen (specimen) BLOOD SPECIMEN / Unknown 06/16/2017 5:39 EDT 06/16/2017 6:15 EDT Michael Pratt MD CHEMISTRY & BLOOD GA S ORDERABLES [facility] [address] [place] [address] * (ABNORMAL) HEMAGRAM (06/16/2017 5:39 EDT) WBC 10.81(H) 4.0 - 10.4 K/cmm 06/16/2017 6:28 [facility] RBC 3.83(L) 4.36 - 5.78 M/cmm 06/16/2017 6:28 [facility] Hemoglobin 12.4(L) 13.8 - 17.3 gm/dl 06/16/2017 6:28 [facility] HCT 35.6(L) 39.5 - 50.2 % 06/16/2017 6:28 [facility] MCV 93 81 - 95 fl 06/16/2017 6:28 [facility] MCH 32.4 27.6 - 33.0 pg 06/16/2017 6:28 [facility] MCHC 34.8 32.8 - 36.4 gm/dl 06/16/2017 6:28 [facility] RDW-CV 11.9 <14.2 % 06/16/2017 6:28 [facility] RDW-SD 40.8 <46.0 fl 06/16/2017 6:28 [facility] PLT 204 141 - 377 K/cmm 06/16/2017 6:28 [facility] MPV 12.4 9.5 - 12.7 fl 06/16/2017 6:28 EDT [facility] Blood specimen (specimen) BLOOD SPECIMEN / Unknown 06/16/2017 5:39 EDT 06/16/2017 6:15 EDT Michael Pratt MD HEMATOLOGY & PF4 ORD ERABLES Performing Organization Address City/[facility]/ZIP Co de Phone Number [facility] [address] [place] [address] * CREATININE (06/16/2017 5:39 EDT) Creatinine 0.67 0.66 - 1.25 mg/dl 06/16/2017 6:48 EDT [facility] GFR, Calculated 100 >60 ml/min/1.7 3m2 06/16/2017 6:48 EDT [facility] Comment: eGFR calculated using CKD-EPI equation for non Americans. Multiply eGFR by 1.16 for Americans. Blood specimen (specimen) BLOOD SPECIMEN / Unknown 06/16/2017 5:39 EDT 06/16/2017 6:15 EDT Michael Pratt MD CHEMISTRY & BLOOD GA S ORDERABLES Performing Organization Address City/[facility] Co de Phone Number [facility] [address] [place] [address] * MAGNESIUM (06/15/2017 5:31 EDT) Magnesium 1.7 1.7 - 2.8 mg/dl 06/15/2017 6:24 EDT [facility] Blood specimen (specimen) BLOOD SPECIMEN / Unknown 06/15/2017 5:31 EDT 06/15/2017 5:48 EDT Michael Pratt MD CHEMISTRY & BLOOD GA S ORDERABLES Performing Organization Address City/[facility]/ZIP Co de Phone Number [facility] [address] [place] [address] * (ABNORMAL) ELECTROLYTES (06/15/2017 5:31 EDT) Sodium 133(L) 136 - 145 mEq/L 06/15/2017 6:24 EDT [facility] Potassium 3.4(L) 3.5 - 5.0 mEq/L 06/15/2017 6:24 [facility] Chloride 90(L) 96 - 110 mEq/L 06/15/2017 6:24 T [facility] CO2 34(H) 22 - 32 mEq/L 06/15/2017 6:24 T [facility] Blood specimen (specimen) BLOOD SPECIMEN / Unknown 06/15/2017 5:31 EDT 06/15/2017 5:48 EDT Michael Pratt MD CHEMISTRY & BLOOD GA S ORDERABLES Performing Organization Address City/State/[facility] Co de Phone Number [facility] [address] [place] [address] * (ABNORMAL) HEMAGRAM (06/15/2017 5:31 EDT) Pathologist [facility] WBC 11.63(H) 4.0 - 10.4 K/cmm 06/15/2017 5:58 [facility] RBC 3.51(L) 4.36 - 5.78 M/cmm 06/15/2017 5:58 [facility] Hemoglobin 11.4(L) 13.8 - 17.3 gm/dl 06/15/2017 5:58 [facility] HCT 33.1(L) 39.5 - 50.2 % 06/15/2017 5:58 [facility] MCV 94 81 - 95 fl 06/15/2017 5:58 [facility] MCH 32.5 27.6 - 33.0 pg 06/15/2017 5:58 [facility] MCHC 34.4 32.8 - 36.4 gm/dl 06/15/2017 5:58 [facility] RDW-CV 12.0 <14.2 % 06/15/2017 5:58 [facility] RDW-SD 41.4 <46.0 fl 06/15/2017 5:58 [facility] PLT 240 141 - 377 K/cmm 06/15/2017 5:58 EDT [facility] MPV 11.1 9.5 - 12.7 fl 06/15/2017 5:58 EDT [facility] Blood specimen (specimen) BLOOD SPECIMEN / Unknown 06/15/2017 5:31 EDT 06/15/2017 5:48 EDT Michael Pratt MD HEMATOLOGY & PF4 ORD ERABLES [facility] [address] [place] [address] * (ABNORMAL) CREATININE (06/15/2017 5:31 EDT) Creatinine 0.65(L) 0.66 - 1.25 mg/dl 06/15/2017 6:24 EDT [facility] GFR, Calculated 101 >60 ml/min/1.7 3m2 06/15/2017 6:24 EDT [facility] Comment: eGFR calculated using CKD-EPI equation for non Americans. Multiply eGFR by 1.16 for Americans. Blood specimen (specimen) BLOOD SPECIMEN / Unknown 06/15/2017 5:31 EDT 06/15/2017 5:48 EDT Michael Pratt MD CHEMISTRY & BLOOD GA S ORDERABLES Performing Organization Address City/[facility] Co de Phone Number [facility] [address] [place] [address] * INPATIENT ADD-ON (06/14/2017 8:00 EDT) Tests to be added PLEASE ADD ON DIFFERENTIAL TO CBC 06/14/2017 7:59 EDT [facility] Number for problems M5 06/14/2017 8:01 T [facility] Accession number [id number] 06/14/2017 8:01 EDT [facility] TOPOGRAPHY UNKNOWN / Unknown 06/14/2017 8:00 EDT 06/14/2017 8:01 EDT Catherine Walker MD HEMATOLOGY & PF4 ORD ERABLES [facility] [address] [place] [address] * (ABNORMAL) DIFFERENTIAL (06/14/2017 5:32 EDT) % Neutrophils 72.2 % 06/14/2017 8:47 EDT [facility] % Lymphocytes 14.9 % 06/14/2017 8:47 EDT [facility] % Monocytes 12.1 % 06/14/2017 8:47 EDT [facility] % Eosinophils 0.1 % 06/14/2017 8:47 T [facility] % Basophils 0.2 % 06/14/2017 8:47 EDT [facility] % Immature Grans 0.5 % 06/14/2017 8:47 EDT [facility] ABS Neutrophils 8.96(H) 2.20 - 8.85 K/cmm 06/14/2017 8:47 EDT [facility] ABS Lymphs 1.85 1.09 - 3.30 K/cmm 06/14/2017 8:47 EDT [facility] ABS Monocytes 1.50(H) 0.1 - 0.8 K/cmm 06/14/2017 8:47 T [facility] ABS Eosinophils 0.01(L) 0.03 - 0.61 K/cmm 06/14/2017 8:47 T [facility] ABS Basophils 0.02 0.01 - 0.11 K/cmm 06/14/2017 8:47 EDT [facility] ABS Immature Grans 0.06 0 - 0.06 K/cmm 06/14/2017 8:47 T [facility] Type of Diff: Automated 06/14/2017 8:47 [facility] BLOOD SPECIMEN / Unknown 06/14/2017 5:32 EDT 06/14/2017 5:53 EDT Michael Pratt MD HEMATOLOGY & PF4 ORD ERABLES [facility] [address] [place] [address] * MAGNESIUM (06/14/2017 5:32 EDT) Magnesium 2.0 1.7 - 2.8 mg/dl 06/14/2017 6:25 EDT [facility] Blood specimen (specimen) BLOOD SPECIMEN / Unknown 06/14/2017 5:32 EDT 06/14/2017 5:53 EDT Michael Pratt MD CHEMISTRY & BLOOD GA S ORDERABLES Performing Organization Address [facility] Co de Phone Number [facility] [address] [place] [address] * (ABNORMAL) ELECTROLYTES (06/14/2017 5:32 EDT) Pathologist [facility] Sodium 133(L) 136 - 145 mEq/L 06/14/2017 6:25 EDT [facility] Potassium 3.6 3.5 - 5.0 mEq/L 06/14/2017 6:25 EDT [facility] Chloride 91(L) 96 - 110 mEq/L 06/14/2017 6:25 EDT [facility] CO2 31 22 - 32 mEq/L 06/14/2017 6:25 EDT [facility] Blood specimen (specimen) BLOOD SPECIMEN / Unknown 06/14/2017 5:32 EDT 06/14/2017 5:53 EDT Michael Pratt MD CHEMISTRY & BLOOD GA S ORDERABLES Performing Organization Address City/[facility]/ZIP Co de Phone Number [facility] [address] [place] [address] * (ABNORMAL) HEMAGRAM (06/14/2017 5:32 EDT) WBC 12.41(H) 4.0 - 10.4 K/cmm 06/14/2017 6:00 EDT [facility] RBC 3.64(L) 4.36 - 5.78 M/cmm 06/14/2017 6:00 EDT [facility] Hemoglobin 11.9(L) 13.8 - 17.3 gm/dl 06/14/2017 6:00 EDT [facility] HCT 33.8(L) 39.5 - 50.2 % 06/14/2017 6:00 EDT [facility] MCV 93 81 - 95 fl 06/14/2017 6:00 EDT [facility] MCH 32.7 27.6 - 33.0 pg 06/14/2017 6:00 EDT [facility] MCHC 35.2 32.8 - 36.4 gm/dl 06/14/2017 6:00 EDT [facility] RDW-CV 11.9 <14.2 % 06/14/2017 6:00 T [facility] RDW-SD 40.7 <46.0 fl 06/14/2017 6:00 EDT [facility] PLT 243 141 - 377 K/cmm 06/14/2017 6:00 T [facility] MPV 11.7 9.5 - 12.7 fl 06/14/2017 6:00 T [facility] Blood specimen (specimen) BLOOD SPECIMEN / Unknown 06/14/2017 5:32 EDT 06/14/2017 5:53 EDT Michael Pratt MD HEMATOLOGY & PF4 ORD ERABLES [facility] [address] [place] [address] * (ABNORMAL) CREATININE (06/14/2017 5:32 EDT) Creatinine 0.60(L) 0.66 - 1.25 mg/dl 06/14/2017 6:25 EDT [facility] GFR, Calculated 105 >60 ml/min/1.7 3m2 06/14/2017 6:25 EDT [facility] Comment: eGFR calculated using CKD-EPI equation for non Americans. Multiply eGFR by 1.16 for Americans. Blood specimen (specimen) BLOOD SPECIMEN / Unknown 06/14/2017 5:32 EDT 06/14/2017 5:53 EDT Michael Pratt MD CHEMISTRY & BLOOD GA S ORDERABLES Performing Organization Address City/[facility]/ZIP Co de Phone Number [facility] [address] [place] [address] * INPATIENT ADD-ON (06/13/2017 15:00 EDT) Tests to be added PLEASE ADD ON HEMATOCRIT TO PLEURAL FLUID OBTAINED TODAY (06/13). THANK YOU 06/13/2017 14:56 EDT [facility] Number for problems [id number] 06/13/2017 15:05 EDT [facility] Accession number [id number] 06/13/2017 15:15 EDT [facility] Comment:Corrected on 06/13 A T 1515: Previously reported as [id number] TOPOGRAPHY UNKNOWN / Unknown 06/13/2017 15:00 EDT 06/13/2017 15:02 EDT Catherine Walker MD HEMATOLOGY & PF4 ORD ERABLES Performing Organization Address [facility]/ZIP Co de Phone Number [facility] [address] [place] [address] * INPATIENT ADD-ON (06/13/2017 15:00 EDT) Tests to be added TOTAL PROTEIN,LD H 06/13/2017 14:55 EDT [facility] Number for problems [id number] 06/13/2017 15:01 EDT [facility] Accession number [id number] 06/13/2017 15:02 EDT [facility] Comment:Corrected on 06/13 A T 1502: Previously reported as [id number] TOPOGRAPHY UNKNOWN / Unknown 06/13/2017 15:00 EDT 06/13/2017 15:01 EDT Catherine Walker MD HEMATOLOGY & PF4 ORD ERABLES Performing Organization Address City/[facility]/ZIP Co de Phone Number [facility] [address] [place] [address] * CT CHEST (PE) PROTOCOL W CONTRAST [...] the bilateral lower extremities. Rahat Aviles MD [facility] US ORDERABLES * IR THORACENTESIS (06/13/2017 8:45 [...] sterile technique and under local anesthesia, a 8-Thai thoracentesis catheter was advanced into the left pleural space and 700 cc clear light red fluid was removed. ??The pleural fluid was withdrawn and sent to the lab for analysis. The patient tolerated the procedure well without complication. Garima Dawn, was directly supervised in the performance of [...] sterile technique and under local anesthesia, a 8-Thai thoracentesis catheter was advanced into the left pleural space and 700 cc clear light red fluid was removed. The pleural fluid was withdrawn and sent to the lab for analysis. The patient tolerated the procedure well without complication. Garima Dawn, was directly supervised in the performance of this procedure. Impression: Successful ultrasound-guided left thoracentesis yielding 700cc of clear light red fluid which was sent to the lab for analysis. Michael Pratt MD IMG IR ORDERABLES * HEMATOCRIT, BODY FLUID (06/13/2017 8:26 EDT) Hematocrit,Bod y Fld <3.0 % 06/13/2017 16:01 EDT [facility] PLEURAL FLUID SPECIMEN / Unknown 06/13/2017 8:26 EDT 06/13/2017 8:49 EDT Michael Pratt MD GEN LAB UNIT COLLECT ORDERABLES Performing Organization Address City/[facility] Co de Phone Number [facility] [address] [place] [address] * FLUID DIFFERENTIAL (06/13/2017 8:26 EDT) Neutrophils, Fluid 33 % 06/13/2017 12:15 EDT [facility] Lymphocytes, Fluid 50 % 06/13/2017 12:15 EDT [facility] [place]/Macro, Fluid 12 % 06/13/2017 12:15 EDT [facility] Mesothelial 5 % 06/13/2017 12:15 T [facility] Fluid Comment Rev'd by Pathologist 06/13/2017 12:15 EDT [facility] PLEURAL FLUID SPECIMEN / Unknown 06/13/2017 8:26 EDT 06/13/2017 8:49 EDT Michael Pratt MD GEN LAB UNIT COLLECT ORDERABLES Performing Organization Address City/[facility]/ZIP Co de Phone Number [facility] [address] [place] [address] * PH, PLEURAL FLUID (06/13/2017 8:26 EDT) Pleural Fluid pH 7.42 06/14/19 18 9:12 EDT [facility] Comment: Reference range: Pleural fluid Exudate: 7.30-7.45 Transudate: 7.40-7.55 A pleural fluid pH <7.30 is generally associated with a complicated parapneumonic effusion, empyema, connective tissue disease of the pleura or malignant effusion. PLEURAL FLUID SPECIMEN / Unknown 06/13/2017 8:26 EDT 06/13/2017 9:00 EDT Michael Pratt MD GEN LAB UNIT COLLECT ORDERABLES [facility] [address] [place] [address] * BACTERIAL CULTURE/SMEAR, FLUID (06/13/2017 8:26 EDT) Gram Smear Result Polys present 06/13/2017 10:07 EDT [facility] Gram Smear Result No bacteria seen 06/13/2017 10:07 EDT [facility] Result No growth 06/15/2017 7:29 EDT [facility] FOSMIC PLEURAL FLUID SPECIMEN / Unknown 06/13/2017 8:26 EDT 06/13/2017 9:19 EDT Comment:Left Michael Pratt MD MICROBIOLOGY - GENER AL ORDERABLES Performing Organization Address City/[facility]/ZIP Co de Phone Number [facility] [address] [place] [address] * FLUID CELL COUNT (06/13/2017 8:26 EDT) RBC, Fluid 44,000 /cmm 06/13/2017 10:31 EDT [facility] Nucleated Cells 11,202 /cmm 06/13/2017 10:31 EDT [facility] Fluid Comment MODERATELY BLOODY, MODERATELY CLOUDY 06/13/2017 10:31 EDT [facility] Body fluid specimen (specimen) PLEURAL FLUID SPECIMEN / Unknown 06/13/2017 8:26 EDT 06/13/2017 8:49 EDT Michael Pratt MD GEN LAB UNIT COLLECT ORDERABLES Performing Organization Address City/[facility]/ZIP Co de Phone Number [facility] [address] [place] [address] * TOTAL PROTEIN, FLUID (06/13/2017 8:26 EDT) Protein, Fluid 5.2 g/dl 06/13/2017 10:18 EDT [facility] Comment: Reference Range: Pleural fluid specimen (specimen) Exudate > 3.0 g/dl Pleural fluid specimen (specimen) Transudate <3.0 g/dl Peritoneal fluid sample (specimen) Serum ascites to albumin gradient (SAGG) superior to total protein content in differentiating causes of effusion. Pleural fluid specimen (specimen) [facility] PLEURAL FLUID SPECIMEN / Unknown 06/13/2017 8:26 EDT 06/13/2017 8:51 EDT Michael Pratt MD GEN LAB UNIT COLLECT ORDERABLES Performing Organization Address [facility] Co de Phone Number [facility] [address] [place] [address] * LDH, FLUID (06/13/2017 8:26 EDT) LDH, Fluid 654 U/L 06/13/2017 10:18 EDT [facility] Comment: Pleural fluid specimen (specimen) Reference Range: Suggestive of exudate if fluid cholesterol is > 45 mg/dl or fluid LDH is greater than 0.45 times the upper limit of normal serum LDH levels. Peritoneal fluid sample (specimen) No reference range available Pleural fluid specimen (specimen) [facility] PLEURAL FLUID SPECIMEN / Unknown 06/13/2017 8:26 EDT 06/13/2017 8:51 EDT Michael Pratt MD GEN LAB UNIT COLLECT ORDERABLES Performing Organization Address City/[facility]/ZIP Co de Phone Number [facility] [address] [place] [address] * GLUCOSE, FLUID (06/13/2017 8:26 EDT) Glucose, Fluid 88 mg/dl 06/13/2017 10:18 EDT [facility] Comment: Reference Range: Pleural fluid specimen (specimen) Low glucose is accepted as <60 mg/dl or pleural fluid to serum glucose ratio of <0.5. Peritoneal fluid sample (specimen) Low glucose is generally accepted as <50 mg/dl. Pleural fluid specimen (specimen) [facility] PLEURAL FLUID SPECIMEN / Unknown 06/13/2017 8:26 EDT 06/13/2017 8:51 EDT Michael Pratt MD GEN LAB UNIT COLLECT ORDERABLES Performing Organization Address City/[facility]/ZIP Co de Phone Number [facility] [address] [place] [address] * CREATININE, FLUID (06/13/2017 8:26 EDT) Creatinine, Fluid 0.57 mg/dl 06/13/2017 10:18 EDT [facility] Comment: Reference Range: Pleural fluid specimen (specimen) No reference range available Peritoneal fluid sample (specimen) No reference range available Drain device specimen (specimen) No reference range available Pleural fluid specimen (specimen) [facility] PLEURAL FLUID SPECIMEN / Unknown 06/13/2017 8:26 EDT 06/13/2017 8:51 EDT Michael Pratt MD GEN LAB UNIT COLLECT ORDERABLES Performing Organization Address City/[facility]/ZIP Co de Phone Number [facility] [address] [place] [address] * PROTEIN, TOTAL (06/13/2017 6:08 EDT) Total Protein 7.2 6.3 - 8.2 g/dl 06/13/2017 15:23 EDT [facility] BLOOD SPECIMEN / Unknown 06/13/2017 6:08 EDT 06/13/2017 6:38 EDT Michael Pratt MD CHEMISTRY & BLOOD GA S ORDERABLES Performing Organization Address [facility]/ZIP Co de Phone Number [facility] [address] [place] [address] * LDH (06/13/2017 6:08 EDT) LDH 428 313 - 618 U/L 06/13/2017 15:23 EDT [facility] BLOOD SPECIMEN / Unknown 06/13/2017 6:08 EDT 06/13/2017 6:38 EDT Michael Pratt MD CHEMISTRY & BLOOD GA S ORDERABLES [facility] [address] [place] [address] * (ABNORMAL) MAGNESIUM (06/13/2017 6:08 EDT) Magnesium 1.4(L) 1.7 - 2.8 mg/dl 06/13/2017 7:07 EDT [facility] Blood specimen (specimen) BLOOD SPECIMEN / Unknown 06/13/2017 6:08 EDT 06/13/2017 6:38 EDT Michael Pratt MD CHEMISTRY & BLOOD GA S ORDERABLES Performing Organization Address [facility] Co de Phone Number [facility] [address] [place] [address] * (ABNORMAL) ELECTROLYTES (06/13/2017 6:08 EDT) Sodium 132(L) 136 - 145 mEq/L 06/13/2017 7:07 EDT [facility] Potassium 3.6 3.5 - 5.0 mEq/L 06/13/2017 7:07 EDT [facility] Chloride 91(L) 96 - 110 mEq/L 06/13/2017 7:07 EDT [facility] CO2 29 22 - 32 mEq/L 06/13/2017 7:07 EDT [facility] Blood specimen (specimen) BLOOD SPECIMEN / Unknown 06/13/2017 6:08 EDT 06/13/2017 6:38 EDT Michael Pratt MD CHEMISTRY & BLOOD GA S ORDERABLES Performing Organization Address [facility]/ZIP Co de Phone Number [facility] [address] [place] [address] * (ABNORMAL) HEMAGRAM (06/13/2017 6:08 EDT) WBC 9.97 4.0 - 10.4 K/cmm 06/13/2017 6:52 [facility] RBC 3.76(L) 4.36 - 5.78 M/cmm 06/13/2017 6:52 [facility] Hemoglobin 12.2(L) 13.8 - 17.3 gm/dl 06/13/2017 6:52 [facility] HCT 34.9(L) 39.5 - 50.2 % 06/13/2017 6:52 [facility] MCV 93 81 - 95 fl 06/13/2017 6:52 [facility] MCH 32.4 27.6 - 33.0 pg 06/13/2017 6:52 [facility] MCHC 35.0 32.8 - 36.4 gm/dl 06/13/2017 6:52 [facility] RDW-CV 11.8 <14.2 % 06/13/2017 6:52 [facility] RDW-SD 40.4 <46.0 fl 06/13/2017 6:52 [facility] PLT 223 141 - 377 K/cmm 06/13/2017 6:52 [facility] MPV 11.9 9.5 - 12.7 fl 06/13/2017 6:52 [facility] Blood specimen (specimen) BLOOD SPECIMEN / Unknown 06/13/2017 6:08 EDT 06/13/2017 6:38 EDT Michael Pratt MD HEMATOLOGY & PF4 ORD ERABLES [facility] [address] [place] [address] * (ABNORMAL) CREATININE (06/13/2017 6:08 EDT) Creatinine 0.58(L) 0.66 - 1.25 mg/dl 06/13/2017 7:07 [facility] GFR, Calculated 106 >60 ml/min/1.7 3m2 06/13/2017 7:07 [facility] Comment: eGFR calculated using CKD-EPI equation for non Americans. Multiply eGFR by 1.16 for Americans. Blood specimen (specimen) BLOOD SPECIMEN / Unknown 06/13/2017 6:08 EDT 06/13/2017 6:38 EDT Michael Pratt MD CHEMISTRY & BLOOD GA S ORDERABLES Performing Organization Address [facility] de Phone Number [facility] [address] [place] [address] * (ABNORMAL) PROTIME (06/13/2017 6:08 EDT) Pro Time 14.0(H) 10.3 - 13.4 secs 06/13/2017 7:00 EDT [facility] Comment:NOTE NEW REFERENCE Vern FUNG OF APR 03 2017 I.N.R. 1.2(H) 0.9 - 1.1 Ratio 06/13/2017 7:00 EDT [facility] Comment: Moderate Intensity Coumadin INR = 2.0-3.0 Adjustments in anticoagulant therapy dose should be based upon the INR and NOT the Pro Time. Blood specimen (specimen) BLOOD SPECIMEN / Unknown 06/13/2017 6:08 EDT 06/13/2017 6:38 EDT Michael Pratt MD HEMATOLOGY & PF4 ORD ERABLES Performing Organization Address [facility] de Phone Number [facility] [address] [place] [address] * BACTERIAL CULTURE, BLOOD (06/12/2017 22:47 EDT) Result No growth 06/17/2017 7:12 EDT [facility] Blood specimen (specimen) BLOOD SPECIMEN / Unknown 06/12/2017 22:47 EDT 06/12/2017 23:20 EDT Comment:Left~Antecubital Denilson Shannon MD MICROBIOLOGY - GENE RAL ORDERABLES Performing Organization Address [facility] Co de Phone Number [facility] [address] [place] [address] * (ABNORMAL) D-DIMER (06/12/2017 22:40 EDT) D-Dimer 724(H) <230 ng/mL 06/12/2017 23:14 EDT [facility] Comment: CUTOFF VALUE FOR THE EXCLUSION OF DVT and PE: 230 ng/mL D-dimer units Any use of the age-adjusted cutoff value is a post-analytic modification of this FDA-approved test and is considered off-label use of the test result. [facility] laboratory does not have literature to support the validity of an age-adjusted cutoff for our specific assay. Blood specimen (specimen) BLOOD SPECIMEN / Unknown 06/12/2017 22:40 EDT 06/12/2017 22:57 EDT Rahat Aviles MD HEMATOLOGY & PF4 OR DERABLES Performing Organization Address City/[facility]/ZIP Co de Phone Number [facility] [address] [place] [address] * BACTERIAL CULTURE, BLOOD (06/12/2017 22:40 EDT) Result No growth 06/17/2017 7:12 EDT [facility] Blood specimen (specimen) BLOOD SPECIMEN / Unknown 06/12/2017 22:40 EDT 06/12/2017 23:20 EDT Comment:Right~Antecubital Denilson Shannon MD MICROBIOLOGY - GENE RAL ORDERABLES [facility] [address] [place] [address] * INPATIENT ADD-ON (06/12/2017 21:30 EDT) Tests to be added NT PRO BNP 06/12/2017 21:28 EDT [facility] Number for problems Not Given 06/12/2017 21:31 EDT [facility] Accession number [id number] 06/12/2017 21:31 EDT [facility] TOPOGRAPHY UNKNOWN / Unknown 06/12/2017 21:30 EDT 06/12/2017 21:31 EDT Denilson Shannon MD HEMATOLOGY & PF4 OR DERABLES [facility] [address] [place] [address] * CHEST PA AND LATERAL (06/12/2017 20:56 [...] ORDERABLES * INPATIENT ADD-ON (06/12/2017 19:20 EDT) Tests to be added HIGH SENSITIVITY CRP 06/12/2017 19:17 EDT [facility] Number for problems [id number] 06/12/2017 19:24 EDT [facility] Accession number [id number] 06/12/2017 19:24 EDT [facility] TOPOGRAPHY UNKNOWN / Unknown 06/12/2017 19:20 EDT 06/12/2017 19:21 EDT Michael Pratt MD HEMATOLOGY & PF4 ORD ERABLES Performing Organization Address [facility] Co de Phone Number [facility] [address] [place] [address] * (ABNORMAL) NT PRO BNP (06/12/2017 18:37 EDT) [facility] NT Pro BNP 1,380(H) <300 pg/ml 06/12/2017 22:19 EDT [facility] Comment: Reference Range: NT-proBNP [...] BLOOD GA S ORDERABLES Performing Organization Address [facility]/ZIP Co de Phone Number [facility] [address] [place] [address] * HIGH SENSITIVITY C-REACTIVE PROTEIN (CARDIOVASCULAR DISEASE) (06/12/2017 18:37 EDT) [facility] High Sensitivity CRP 83.3 mg/L 06/13/2017 10:08 EDT [facility] Comment: Reference Range: <1.0 mg/L Low risk 1.0-3.0 mg/L Average risk >3.0 mg/L High risk >10.0 mg/L Acute inflammation BLOOD SPECIMEN / Unknown 06/12/2017 18:37 EDT 06/12/2017 18:58 EDT Catherine Walker MD CHEMISTRY & BLOOD GA S ORDERABLES Performing Organization Address City/[facility]/ZIP Co de Phone Number [facility] [address] [place] [address] * TROPONIN I (06/12/2017 18:37 EDT) Troponin I (ng/mL) <0.034 <0.034 ng/ml 06/12/2017 19:49 EDT [facility] Blood specimen (specimen) BLOOD SPECIMEN / Unknown 06/12/2017 18:37 EDT 06/12/2017 18:58 EDT Catherine Walker MD CHEMISTRY & BLOOD GA S ORDERABLES Performing Organization Address City/[facility] Co de Phone Number [facility] [address] [place] [address] * (ABNORMAL) HEMAGRAM (06/12/2017 18:37 EDT) WBC 17.10(H) 4.0 - 10.4 K/cmm 06/12/2017 19:04 [facility] RBC 3.70(L) 4.36 - 5.78 M/cmm 06/12/2017 19:04 [facility] Hemoglobin 12.2(L) 13.8 - 17.3 gm/dl 06/12/2017 19:04 [facility] HCT 34.1(L) 39.5 - 50.2 % 06/12/2017 19:04 [facility] MCV 92 81 - 95 fl 06/12/2017 19:04 [facility] MCH 33.0 27.6 - 33.0 pg 06/12/2017 19:04 [facility] MCHC 35.8 32.8 - 36.4 gm/dl 06/12/2017 19:04 [facility] RDW-CV 11.6 <14.2 % 06/12/2017 19:04 EDT [facility] RDW-SD 39.4 <46.0 fl 06/12/2017 19:04 EDT [facility] PLT 206 141 - 377 K/cmm 06/12/2017 19:04 EDT [facility] MPV 12.3 9.5 - 12.7 fl 06/12/2017 19:04 EDT [facility] Blood specimen (specimen) BLOOD SPECIMEN / Unknown 06/12/2017 18:37 EDT 06/12/2017 18:58 EDT Catherine Walker MD HEMATOLOGY & PF4 ORD ERABLES Performing Organization Address City/[facility]/ZIP Co de Phone Number [facility] [address] [place] [address] * BUN (06/12/2017 18:37 EDT) BUN 10 10 - 26 mg/dl 06/12/2017 19:34 EDT [facility] Blood specimen (specimen) BLOOD SPECIMEN / Unknown 06/12/2017 18:37 EDT 06/12/2017 18:58 EDT Catherine Walker MD CHEMISTRY & BLOOD GA S ORDERABLES Performing Organization Address [facility] Co de Phone Number [facility] [address] [place] [address] * (ABNORMAL) ELECTROLYTES (06/12/2017 18:37 EDT) Sodium 129(L) 136 - 145 mEq/L 06/12/2017 19:34 EDT [facility] Potassium 3.4(L) 3.5 - 5.0 mEq/L 06/12/2017 19:34 T [facility] Chloride 91(L) 96 - 110 mEq/L 06/12/2017 19:34 T [facility] CO2 27 22 - 32 mEq/L 06/12/2017 19:34 EDT [facility] Blood specimen (specimen) BLOOD SPECIMEN / Unknown 06/12/2017 18:37 EDT 06/12/2017 18:58 EDT Catherine Walker MD CHEMISTRY & BLOOD GA S ORDERABLES Performing Organization Address [facility] de Phone Number [facility] [address] [place] [address] * (ABNORMAL) CREATININE (06/12/2017 18:37 EDT) Creatinine 0.54(L) 0.66 - 1.25 mg/dl 06/12/2017 19:34 EDT [facility] GFR, Calculated 109 >60 ml/min/1.7 3m2 06/12/2017 19:34 EDT [facility] Comment: eGFR calculated using CKD-EPI equation for non Americans. Multiply eGFR by 1.16 for Americans. Blood specimen (specimen) BLOOD SPECIMEN / Unknown 06/12/2017 18:37 EDT 06/12/2017 18:58 EDT Catherine Walker MD CHEMISTRY & BLOOD GA S ORDERABLES Performing Organization Address [facility] de Phone Number [facility] [address] [place] [address] * EKG 12-LEAD (06/12/2017 18:27 EDT) 06/12/2017 18:2 7 EDT Narrative [facility] EKG - 06/29/2017 15:57 EDT ? [facility] ? Test Date: ?2017-06-12 Pat Name: ? DAVID FARFAN ?Department: ?? Subha Chao ? Room: ? ME505 Gender: ? Male ? Event Management Consultant: ?? [id number] : ?1950 ? Requested By: GISELA Dunn Order Number: [id number] ? Reading MD: ?? SENG PERSON SA MD ? Measurements Intervals ?[place] ? Rate: ? 120 ?P: ?165 MS: ? 235 ?QRS: ?-22 QRSD: ? 176 [...] Date: 2017-06-12 Pat Name: DAVID FARFAN Department: [place] [address] Room: [facility] Gender: Male Event Management Consultant: [id number] : 1950 Requested By: GISELA Dunn Order Number: [id number] Reading MD: SENG ROBLEDO Measurements Intervals [place] Rate: 120 P: 165 MS: 235 QRS: -22 QRSD: 176 T: 171 [...] Catherine Walker MD CARDIAC ECG ORDERABL ES [facility] EKG documented in this encounter Visit [...] Until 06/16/17 at 1857, Cough, Routine Given 06/16/2017 14:24 [...] at 1247, Until 06/14/17 at 2308, Routine Given 06/13/2017 12:47 EDT [...] 06/12/17 at 1900, Until Discontinued, STAT Given 06/16/2017 [...] [place] 06/12/17 at 2100, Until Discontinued, Routine 918 (Given - Provider: Mila Mcallister RN)2103 (Given - Provider: Mila Mcallister RN) 08 (Given - Provider: Omayra Farley, TISH)2030 (Given - Provider: Diamond Manzano, TISH) 08 (Given - Provider: Omayra Farley RN) heparin injection 5,000 Units 5,000 Units, subcutaneous, EVERY 8 HOURS, First dose on Fri06/13/17 at 0000, Until Discontinued, Routine 0012 (Given - Provider: Hailee Cox RN)0922 (Given - Provider: Mila Mcallister RN)1636 (Given - Provider: Mila Mcallister, TISH)2320 (Given - Provider: Licha Strong RN) 0858 (Given - Provider: Omayra Farley RN)1604 (Given - Provider: Omayra Farley, TISH) 0017 (Given - Provider: Diamond Manzano, TISH)0803 (Not Given - Provider: Omayra Farley RN [...] Provider: Omayra Farley RN - Comment: 1.7) metoprolol (LOPRESSOR) tablet 25 mg 25 mg, oral, 2 TIMES DAILY, First dose on 06/14/17 at 1045, Until Discontinued, Routine 1050 (Given - Provider: Mila Mcallister RN)2103 (Given - Provider: Mila Mcallister, TISH) 0858 (Given - Provider: Omayra Farley, TISH)2030 (Given - Provider: Diamond Manzano RN) 08 [...] 1000, Routine 1004 (Given - Provider: Omayra Farley, TISH - Comment: k 3.7) predniSONE (DELTASONE) tablet 40 mg 40 mg, oral, DAILY, First dose on Fri06/13/17 at 1330, Until Discontinued, Routine 0919 (Given - Provider: Mila Mcallister RN) 0852 (Given - Provider: Omayra Farley RN) 0802 (Given - Provider: Omayra Farley [...] Mcallister, TISH)2325 (Given - Provider: Licha Strong, RN) 1424 (Given - Provider: Omayra Farley RN) [...] 06/12/2017 MEASURE WEIGHT 1 06/12/2017 NOTIFY APPLICATION ASSISTANT 1 06/12/2017 VTE PHARMACOLOGIC PROPHYLAXI S CURRENTLY [...] 06/01 documented in this encounter Care Teams Machine Package Sealer Relationship Specialty Start Date End Date Katia Stone, MINGO [address] [place] [phone] PCP - General 05/02/17 documented as of this encounter
--- OUTSIDE RECORDS SUMMARY | 2023-12-15 13:02 | XMS_ITS | Encounter Summary ---
Author Organization [facility] Address [address] [place] [address] Care Team Providers Care Body Care Manager Name Role Phone Katia Stone PA-C Primary Care Provider +1- [phone] Encounter Details Date Type Department Care Team (Late st Contact Info) Description 06/12/2018 Historical Results Only [facility] [address] [place], [place] [address] Katia Stone, MINGO [address] [place] [address] Social History Tobacco Use Types [...] Sodium 125(L) 136 - 145 06/12/2018 17:52 [facility] Potassium 5.0 3.5 - 5.1 06/12/2018 17:52 [facility] Chloride 89(L) 96 - 107 06/12/2018 17:52 [facility] CO2 Total 28.7 21 - 32 06/12/2018 17:52 [facility] Anion Gap 7.3 06/12/2018 17:52 [facility] BUN 8 7 - 25 06/12/2018 17:52 [facility] Creatinine 0.60(L) 0.7 - 1.30 06/12/2018 17:52 [facility] Estimated GFR >60 >60 06/12/2018 17:59 [facility] Comment: EGFR UNITS: mL/min/1.73 m 2 CKD-EPI Equation used to calculate. Glucose 84 70 - 180 06/12/2018 17:52 [facility] Calcium 8.2(L) 8.5 - 10.5 06/12/2018 17:52 [facility] CALCIUM,CORRECTE D - PMC 8.7 8.5 - 10.5 06/12/2018 17:52 [facility] BILIRUBIN - PMC 0.30 0.00 - 1.00 06/12/2018 17:52 [facility] AST 39(H) 15 - 37 06/12/2018 17:52 [facility] ALT 52 12 - 78 06/12/2018 17:52 [facility] Alkaline Phosphatase 93 46 - 116 06/12/2018 17:52 EDT [facility] Total Protein 7.1 6.4 - 8.2 06/12/2018 17:52 T [facility] Albumin 3.4 3.4 - 5.0 06/12/2018 17:52 T [facility] GLOBULIN - PMC 3.7 06/12/2018 17:52 T [facility] ALBUMIN/GLOBULIN RATIO - PMC 0.9 06/12/2018 17:52 T [facility] 06/12/2018 16:4 6 EDT 06/12/2018 16:47 EDT Katia Stone PA-C CHEMISTRY & BLOOD GAS ORDERABLES [facility] documented in this encounter Visit Diagnoses Not on filedocumented in this encounter Care Teams Body Care Manager Relationship Specialty Start Date End Date Katia Stone PA-C [address] [place] [phone] PCP - General 05/02/17 documented as of this encounter
--- OUTSIDE RECORDS SUMMARY | 2023-12-15 13:02 | XMS_ITS | Encounter Summary ---
Author Organization [facility] Address [address] [place] [address] Care Team Providers Care Stonemason Helper Name Role Phone Katia Stone PA-C Primary Care Provider +1- [phone] Encounter Details Date Type Department Care Team (Late st Contact Info) Description 05/28/2018 Historical Results Only [facility] Radiology Results [address] [place], [place] [address] Haja Richmond MD [address] [place] [phone] Social History Tobacco Use Types Packs/Day [...] - PMC 129(H) <100 05/28/2018 1:18 EDT [facility] 05/28/2018 0:45 EDT 05/28/2018 0:55 EDT Haja Richmond MD CHEMISTRY & BLOOD G ORDERABLES [facility] * (ABNORMAL) COMPLETE BLOOD COUNT AND DIFFERENTIAL (05/28/2018 0:45 EDT) WBC 10.2 4.0 - 10.5 05/28/2018 0:59 EDT [facility] RBC 3.77(L) 4.70 - 6.00 05/28/2018 0:59 EDT [facility] Hemoglobin 12.7(L) 13.5 - 18.0 05/28/2018 0:59 EDT [facility] HCT 35.3(L) 42.0 - 52.0 05/28/2018 0:59 EDT [facility] MCV 93.6 78 - 100 [...] DNA PROB E ORDERABLES Performing Organization Address [facility]/ZIP Co de Phone Number [facility] * TROPONIN I (05/28/2018 0:45 EDT) [facility] Troponin I (ng/mL) <0.05 <0.10 05/28/2018 1:23 EDT [facility] Comment: REFERENCE RANGE: Negative: ? <0.10 ng/mL Indeterminate: 0.10-0.80 ng/mL Positive: ? >0.80 ng/mL ........................................... The results of this assay can be falsely decreased due to the consumption of Biotin. 05/28/2018 0:45 EDT 05/28/2018 0:56 EDT Haja Richmond MD CHEMISTRY & BLOOD G ORDERABLES Performing Organization Address [facility] [[email or web address]] Co de Phone Number [facility] * (ABNORMAL) HEPATIC & CMP COMBO,FASTING - PMC (05/28/2018 0:45 EDT) [facility] Sodium 120(L) 136 - 145 05/28/2018 1:21 [...] Richmond MD CHEMISTRY & BLOOD G ORDERABLES [facility] * XR CHEST 2 VIEWS (05/28/2018 0:11 EDT) Anatomical Region Laterality Modality Other 05/28/2018 0:11 EDT Narrative 05/28/2018 0:11 EDT [facility]: [address] [address] Diagnostic Imaging Report Signed Patient Name:DAVID FARFAN ? Date of :1950 ? MR Number:[id number] Age:67 ?Sex:M Category: CR ? Date of [...] Procedure Note Alma Sherwood MD - [facility] [place] [address] Diagnostic Imaging Report Signed Patient Name:DAVID FARFAN Number:[id number] Date of :1950 MRNumber:[id number] Age:67 Sex:M Category: CR Date ofExam:05/28/18 Procedure: CR: Chest; Frontal/LAT viewsAccession: [id number] Ordering Physician: Haja Richmond MD CC: Haja [...] documented as of this encounter Care Teams Stonemason Helper Relationship Specialty Start Date End Date Katia Stone, MINGO [address] [place] [phone] PCP - General 05/02/17 documented as of this encounter
--- OUTSIDE RECORDS SUMMARY | 2023-12-15 13:02 | XMS_ITS | Encounter Summary ---
Author Organization [facility] Address [address] [place] [address] Care Team Providers Care Dial Painter Name Role Phone Katia Stone PA-C Primary Care Provider +1- [phone] Encounter Details Date Type Department Care Team (Late st Contact Info) Description 06/18/[address] [facility] [address] [place], [place] [address] Katia Stone, MINGO [address] [place] [address] Social History Tobacco Use Types [...] Sodium 125(L) 136 - 145 06/18/2018 13:02 [facility] Potassium 4.9 3.5 - 5.1 06/18/2018 13:02 [facility] Chloride 88(L) 96 - 107 06/18/2018 13:02 [facility] CO2 Total 27.6 21 - 32 06/18/2018 13:02 [facility] Anion Gap 8.4 06/18/2018 13:02 [facility] BUN 8 7 - 25 06/18/2018 13:02 [facility] Creatinine 0.69(L) 0.7 - 1.30 06/18/2018 13:02 [facility] Estimated GFR >60 >60 06/18/2018 13:03 [facility] Comment: EGFR UNITS: mL/min/1.73 m 2 CKD-EPI Equation used to calculate. Glucose 86 FASTIN -99 06/18/2018 13:02 [facility] Calcium 8.4(L) 8.5 - 10.5 06/18/2018 13:02 [facility] CALCIUM,CORRECTE D - PMC 8.9 8.5 - 10.5 06/18/2018 13:02 [facility] BILIRUBIN - PMC 0.60 0.00 - 1.00 06/18/2018 13:02 [facility] AST 63(H) 15 - 37 06/18/2018 13:02 [facility] ALT 58 12 - 78 06/18/2018 13:02 [facility] Alkaline Phosphatase 94 46 - 116 06/18/2018 13:02 EDT [facility] Total Protein 7.3 6.4 - 8.2 06/18/2018 13:02 [facility] Albumin 3.4 3.4 - 5.0 06/18/2018 13:02 [facility] GLOBULIN - PMC 3.9 06/18/2018 13:02 [facility] ALBUMIN/GLOBULIN RATIO - PMC 0.8 06/18/2018 13:02 [facility] 06/18/2018 12:1 4 EDT 06/18/2018 12:16 EDT Katia Stone PA-C CHEMISTRY & BLOOD GAS ORDERABLES [facility] documented in this encounter Visit Diagnoses Not on filedocumented in this encounter Care Teams Dial Painter Relationship Specialty Start Date End Date Katia Stone PA-C [address] [place] [phone] PCP - General 05/02/17 documented as of this encounter
--- OUTSIDE RECORDS SUMMARY | 2023-12-15 13:02 | XMS_ITS | Encounter Summary ---
Author Organization [facility] Address [address] [place] [address] Care Team Providers Care Auto Motor Mechanic Name Role Phone Katia Stone PA-C Primary Care Provider +1- [phone] Encounter Details Date Type Department Care Team (Late st Contact Info) Description 01/12/2020 Results Only [facility] [address] [place] [address] Jayesh Olguin MD [address] [place] [address] Social History Tobacco Use Types [...] (01/12/2020 22:30 EST) POC CAPILLARY GLUCOSE - [facility] 102(H) 70 - 100 mg/dL 01/12/2020 22:59 EST [facility] 01/12/2020 22:3 0 EST 01/12/2020 22:58 EST Jayesh Olguin MD POINT OF CARE TEST ORDERABLES [facility] [address] [place] [address] * (ABNORMAL) ETHYL ALCOHOL LEVEL - PMC (01/12/2020 22:30 EST) ETHYL ALCOHOL LEVEL - [facility] 237.0(CRIT HIGH) <10 mg/dL 01/12/2020 23:47 EST [facility] Comment: Results called and read back to me by: Location: ED Full name: FERMIN FAROOQ Credentials: RN at 2346 on 01/12/20 by TESS. Medical Serum/Plasma Alcohol test reported in mg/dL. Example of unit conversion from mg/dL to percentage: ?80 mg/dL is equivalent to 0.08 % 01/12/2020 22:3 0 EST 01/12/2020 23:03 EST [facility] - 01/12/2020 23:47 EST Sample collected at time of saline lock or IV placement. Jayesh Olguin MD CHEMISTRY & BLOOD G ORDERABLES Performing Organization Address [facility] de Phone Number [facility] [address] [place] [address] * TROPONIN I (01/12/2020 22:30 EST) Pathologist [facility] Troponin I (ng/mL) <0.050 0 - 0.056 ng/ml 01/12/2020 23:32 EST [facility] Comment: Interpretation: The cutoff for [...] 01/12/2020 22:3 0 EST 01/12/2020 23:03 EST [facility] - 01/12/2020 23:47 EST Sample collected at time of saline lock or IV placement. Jayesh Olguin MD CHEMISTRY & BLOOD G ORDERABLES Performing Organization Address [facility] Co de Phone Number [facility] [address] [place] [address] * (ABNORMAL) BASIC METABOLIC PANEL,RANDOM - PMC (01/12/2020 22:30 EST) Pathologist [facility] Sodium 116(CRIT LOW) 136 - 145 mEq/L 01/12/2020 23:33 [facility] Comment: Results called and read back to me by: Location: ED Full name: DEBBIE JOSHUA Credentials: RN at 2332 on 01/12/20 by TESS. Potassium 4.3 3.5 - 5.1 mEq/L 01/12/2020 23:32 [facility] Chloride 83(L) 96 - 107 mEq/L 01/12/2020 23:32 [facility] CO2 Total 24.6 21 - 32 mEq/L 01/12/2020 23:32 [facility] Anion Gap 10.4 mEq/L 01/12/2020 23:32 [facility] BUN 5(L) 7 - 25 mg/dl 01/12/2020 23:32 [facility] Creatinine 0.62(L) 0.70 - 1.30 mg/dl 01/12/2020 23:32 [facility] Estimated GFR >60 >60 01/12/2020 23:33 [facility] Comment: EGFR UNITS: mL/min/1.73 m 2 CKD-EPI Equation used to calculate. Glucose 89 70 - 180 mg/dl 01/12/2020 23:32 [facility] Calcium 8.2(L) 8.5 - 10.1 mg/dl 01/12/2020 23:32 [facility] 01/12/2020 22:3 0 EST 01/12/2020 23:03 [facility] - 01/12/2020 23:47 EST Sample collected at time of saline lock or IV placement. Jayesh Olguin MD CHEMISTRY & BLOOD G ORDERABLES Performing Organization Address City/State/[facility] Co de Phone Number [facility] [address] [place] [address] * (ABNORMAL) HEPATIC FUNCTION PANEL (ALB,ALK PHOS,ALT,AST,DBIL,TOT BOSSMAN,TOT PROT) (01/12/2020 22:30 EST) BILIRUBIN - PMC 0.60 0.00 - 1.00 mg/dl 01/12/2020 23:32 [facility] DIRECT BILIRUBIN - PMC 0.20 0.00 - 0.30 mg/dl 01/12/2020 23:32 [facility] INDIRECT BILIRUBIN - PMC 0.40 0.00 - 0.80 mg/dl 01/12/2020 23:32 [facility] AST 74(H) 15 - 37 U/L 01/12/2020 23:32 [facility] ALT 44 16 - 63 U/L 01/12/2020 23:32 [facility] Alkaline Phosphatase 103 46 - 116 U/L 01/12/2020 23:32 [facility] Total Protein 8.1 6.4 - 8.2 g/dl 01/12/2020 23:32 [facility] Albumin 3.3(L) 3.4 - 5.0 g/dl 01/12/2020 23:32 [facility] GLOBULIN - PMC 4.8 g/dl 01/12/2020 23:32 [facility] ALBUMIN/GLOBULIN RATIO - PMC 0.6 01/12/2020 23:32 [facility] 01/12/2020 22:3 0 EST 01/12/2020 23:03 [facility] - 01/12/2020 23:47 EST Sample collected at time of saline lock or IV placement. Jayesh Olguin MD CHEMISTRY & BLOOD G ORDERABLES [facility] [address] [place] [address] * (ABNORMAL) COMPLETE BLOOD COUNT AND DIFFERENTIAL (01/12/2020 22:30 EST) WBC 5.5 4.0 - 10.5 10 3/uL 01/12/2020 23:19 [facility] RBC 3.69(L) 4.70 - 6.00 10 6/uL 01/12/2020 23:19 [facility] Hemoglobin 12.8(L) 13.5 - 18.0 g/dL 01/12/2020 23:19 [facility] HCT 35.3(L) 42.0 - 52.0 % 01/12/2020 23:19 [facility] MCV 95.7 78 - 100 fL 01/12/2020 23:19 [facility] MCH 34.7(H) 27 - 31 pg 01/12/2020 23:19 [facility] MCHC 36.3(H) 32 - 36 g/dL 01/12/2020 23:19 [facility] RDW-CV - PMC 12.6 11.0 - 14.8 % 01/12/2020 23:19 [facility] PLATELET COUNT - PMC 182 150 - 450 10 3/uL 01/12/2020 23:19 [facility] NEUTROPHILS % (AUTO) - PMC 54.5 42.0 - 75.0 % 01/12/2020 23:19 [facility] LYMPHOCYTES % (AUTO) - PMC 29.0 16.0 - 52.0 % 01/12/2020 23:19 [facility] MONOCYTES % (AUTO) - PMC 12.6(H) 1.0 - 11.0 % 01/12/2020 23:19 [facility] EOSINOPHILS % (AUTO) - PMC 2.4 0.0 - 7.0 % 01/12/2020 23:19 [facility] BASOPHILS % (AUTO) - PMC 1.1 0.0 - 4.0 % 01/12/2020 23:19 [facility] NUCLEATED RBC % (AUTO) - PMC 0.0 <1 % 01/12/2020 23:19 [facility] NEUTROPHILS # (AUTO) - PMC 3.0 1.5 - 6.6 10 3/uL 01/12/2020 23:19 [facility] LYMPHOCYTES # (AUTO) - PMC 1.6 1.0 - 3.5 10 3/uL 01/12/2020 23:19 [facility] MONOCYTES # (AUTO) - PMC 0.7 <1.0 10 3/uL 01/12/2020 23:19 [facility] EOSINOPHILS # (AUTO) - PMC 0.1 <0.7 10 3/uL 01/12/2020 23:19 [facility] BASOPHILS # (AUTO) - PMC 0.1 <0.1 10 3/uL 01/12/2020 23:19 [facility] NUCLEATED RBC # (AUTO) - PMC 0.00 <1 10 3/uL 01/12/2020 23:19 [facility] 01/12/2020 22:3 0 EST 01/12/2020 23:04 EST Narrative [facility] - 01/12/2020 23:35 EST Sample collected at time of saline lock or IV placement. Jayesh Olguin MD PACKAGES & DNA PROB E ORDERABLES [facility] [address] [place] [address] documented in this encounter Visit Diagnoses Not on filedocumented in this encounter Care Teams Auto Motor Mechanic Relationship Specialty Start Date End Date Katia Stone, PABijalC [address] [place] [phone] PCP - General 05/02/17 documented as of this encounter
--- OUTSIDE RECORDS SUMMARY | 2023-12-15 13:02 | XMS_ITS | Encounter Summary ---
Author Organization [facility] Address [address] [place] [address] Care Team Providers Care Plumbing Drafter Name Role Phone Katia Stone PA-C Primary Care Provider +1- [phone] Encounter Details Date Type Department Care Team (Late st Contact Info) Description 01/13/2020 Results Only [facility] [address] [place] [address] Unknown, Provider, Social History Tobacco Use Types [...] 136 - 145 mEq/L 01/13/2020 22:16 EST [facility] 01/13/2020 21:5 0 EST 01/13/2020 21:55 EST Narrative [facility] - 01/13/2020 22:26 EST Sample collected by ED but method of collection (IV Start or venipuncture) not indicated on sample. Provider Unknown CHEMISTRY & BLOOD GA S ORDERABLES [facility] [address] [place] [address] * TROPONIN I (01/13/2020 7:15 EST) Troponin I (ng/mL) <0.050 0 - 0.056 ng/ml 01/13/2020 7:52 EST [facility] Comment: Interpretation: The [...] 01/13/2020 7:15 EST 01/13/2020 7:18 EST Narrative [facility] - 01/13/2020 7:54 EST [...] Unknown CHEMISTRY & BLOOD GA S ORDERABLES [facility] [address] [place] [address] * (ABNORMAL) SODIUM (01/13/2020 7:15 EST) [facility] Sodium 120(L) 136 - 145 mEq/L 01/13/2020 7:52 [facility] 01/13/2020 7:15 EST 01/13/2020 7:[address] [facility] - 01/13/2020 7:54 EST Sample collected [...] BLOOD GA S ORDERABLES Performing Organization Address [facility] de Phone Number [facility] [address] [place] [address] * OSMOLALITY,S PMC TEMP (01/13/2020 5:42 EST) [facility] OSMOLALITY,S 280 275 - 295 mOsm/kg 01/14/2020 18:37 [facility] Comment: Test Performed by: [place] [address] Knapsack Sprayer: Pierre Andersen M.D. Ph.D.; CLIA# [id number] 01/13/2020 5:42 EST 01/13/2020 5:[address] [facility] - 01/14/2020 18:37 EST Sample collected by ED but method of collection (IV Start or venipuncture) not indicated on sample. Provider Unknown CHEMISTRY & BLOOD GA S ORDERABLES Performing Organization Address [facility] Co de Phone Number [facility] [address] [place] [address] * FOLATE (01/13/2020 5:42 EST) [facility] Folate 18.7 >8.6 ng/mL 01/13/2020 7:43 [facility] 01/13/2020 5:42 EST 01/13/2020 5:54 EST Provider Unknown CHEMISTRY & BLOOD GA S ORDERABLES Performing Organization Address [facility] Phone Number [facility] [address] [place] [address] * VITAMIN B12 (01/13/2020 5:42 EST) Vitamin B12 246 193 - 986 pg/mL 01/13/2020 7:43 [facility] Comment: The results of this assay can be falsely elevated due to the consumption of Biotin. 01/13/2020 5:42 EST 01/13/2020 5:54 EST Provider Unknown CHEMISTRY & BLOOD GA S ORDERABLES Performing Organization Address [facility] Number [facility] [address] [place] [address] * (ABNORMAL) IRON,TIBC,FERRITIN GROUP - PMC (01/13/2020 5:42 EST) Iron 178(H) 65 - 175 mcg/dL 01/13/2020 7:43 [facility] Iron Binding Capacity 193(L) 250 - 450 mcg/dL 01/13/2020 7:43 [facility] PERCENT IRON SATURATION - PMC 92(H) 14 - 50 % 01/13/2020 7:43 [facility] Ferritin >1,000(H) 26 - 388 ng/mL 01/13/2020 7:43 [facility] 01/13/2020 5:42 EST 01/13/2020 5:54 EST Provider Unknown CHEMISTRY & BLOOD GA S ORDERABLES Performing Organization Address [facility] Co de Phone Number [facility] [address] [place] [address] * PROTIME (01/13/2020 5:42 EST) Pro Time 11.1 9.0 - 12.3 SEC 01/13/2020 6:47 [facility] PROTHROMBIN TIME WITH INR - PMC 1.1 0.8 - 1.2 RATIO 01/13/2020 6:47 [facility] Comment: Interpretive Information: Moderate Intensity [...] reasons. 01/13/2020 5:42 EST 01/13/2020 5:55 EST [facility] - 01/13/2020 6:48 EST Sample collected by ED but method of collection (IV Start or venipuncture) not indicated on sample. Provider Unknown HEMATOLOGY & PF4 ORD ERABLES Performing Organization Address [facility] Phone Number [facility] [address] [place] [address] * THYROID CASCADE (01/13/2020 5:42 EST) TSH 1.958 0.360 - 3.740 mIU/L 01/13/2020 6:35 [facility] Comment: Note: This is a Third Generation Assay .......................................... The results of this assay can be falsely decreased due to the consumption of Biotin. 01/13/2020 5:42 EST 01/13/2020 5:51 EST [facility] - 01/13/2020 6:35 EST Sample collected by ED but method of collection (IV Start or venipuncture) not indicated on sample. Provider Unknown CHEMISTRY & BLOOD GA S ORDERABLES Performing Organization Address [facility] Co id Phone Number [facility] [address] [place] [address] * (ABNORMAL) MAGNESIUM (01/13/2020 5:42 EST) Magnesium 1.4(L) 1.8 - 2.4 mg/dl 01/13/2020 6:35 [facility] 01/13/2020 5:42 EST 01/13/2020 5:[address] [facility] - 01/13/2020 6:35 EST Sample collected by ED but method of collection (IV Start or venipuncture) not indicated on sample. Provider Unknown MD CHEMISTRY & BLOOD GA S ORDERABLES [facility] [address] [place] [address] * (ABNORMAL) HEPATIC & CMP COMBO,FASTING - PMC (01/13/2020 5:42 EST) Sodium 121(L) 136 - 145 mEq/L 01/13/2020 6:35 [facility] Potassium 4.1 3.5 - 5.1 mEq/L 01/13/2020 6:35 [facility] Chloride 87(L) 96 - 107 mEq/L 01/13/2020 6:35 [facility] CO2 Total 25.5 21 - 32 mEq/L 01/13/2020 6:35 [facility] Anion Gap 8.5 mEq/L 01/13/2020 6:35 [facility] BUN 4(L) 7 - 25 mg/dl 01/13/2020 6:35 [facility] Creatinine 0.60(L) 0.70 - 1.30 mg/dl 01/13/2020 6:35 [facility] Estimated GFR >60 >60 01/13/2020 6:35 [facility] Comment: EGFR UNITS: mL/min/1.73 m 2 CKD-EPI Equation used to calculate. Glucose 70 70 - 180 mg/dl 01/13/2020 6:35 [facility] Calcium 7.9(L) 8.5 - 10.1 mg/dl 01/13/2020 6:35 [facility] CALCIUM,CORRECTE D - PMC 8.9 8.5 - 10.5 mg/dl 01/13/2020 6:35 [facility] BILIRUBIN - PMC 0.70 0.00 - 1.00 mg/dl 01/13/2020 6:35 [facility] AST 56(H) 15 - 37 U/L 01/13/2020 6:35 [facility] ALT 38 16 - 63 U/L 01/13/2020 6:35 [facility] Alkaline Phosphatase 87 46 - 116 U/L 01/13/2020 6:35 [facility] Total Protein 6.8 6.4 - 8.2 g/dl 01/13/2020 6:35 [facility] Albumin 2.7(L) 3.4 - 5.0 g/dl 01/13/2020 6:35 [facility] GLOBULIN - PMC 4.1 g/dl 01/13/2020 6:35 [facility] ALBUMIN/GLOBULIN RATIO - PMC 0.6 01/13/2020 6:35 [facility] 01/13/2020 5:42 EST 01/13/2020 5:[address] [facility] - 01/13/2020 6:35 EST Sample collected by ED but method of collection (IV Start or venipuncture) not indicated on sample. Provider Unknown CHEMISTRY & BLOOD GA S ORDERABLES Performing Organization Address City/State/[facility] Co de Phone Number [facility] [address] [place] [address] * (ABNORMAL) COMPLETE BLOOD COUNT AND DIFFERENTIAL (01/13/2020 5:42 EST) WBC 5.2 4.0 - 10.5 10 3/uL 01/13/2020 6:17 [facility] RBC 3.24(L) 4.70 - 6.00 10 6/uL 01/13/2020 6:17 [facility] Hemoglobin 11.3(L) 13.5 - 18.0 g/dL 01/13/2020 6:17 [facility] HCT 30.8(L) 42.0 - 52.0 % 01/13/2020 6:17 [facility] MCV 95.1 78 - 100 fL 01/13/2020 6:17 [facility] MCH 34.9(H) 27 - 31 pg 01/13/2020 6:17 [facility] MCHC 36.7(H) 32 - 36 g/dL 01/13/2020 6:17 [facility] RDW-CV - PMC 12.5 11.0 - 14.8 % 01/13/2020 6:17 [facility] PLATELET COUNT - PMC 161 150 - 450 10 3/uL 01/13/2020 6:17 [facility] NEUTROPHILS % (AUTO) - PMC 52.1 42.0 - 75.0 % 01/13/2020 6:17 [facility] LYMPHOCYTES % (AUTO) - PMC 30.5 16.0 - 52.0 % 01/13/2020 6:17 [facility] MONOCYTES % (AUTO) - PMC 13.8(H) 1.0 - 11.0 % 01/13/2020 6:17 [facility] EOSINOPHILS % (AUTO) - PMC 1.7 0.0 - 7.0 % 01/13/2020 6:17 [facility] BASOPHILS % (AUTO) - PMC 1.3 0.0 - 4.0 % 01/13/2020 6:17 [facility] NUCLEATED RBC % (AUTO) - PMC 0.0 <1 % 01/13/2020 6:17 [facility] NEUTROPHILS # (AUTO) - PMC 2.7 1.5 - 6.6 10 3/uL 01/13/2020 6:17 [facility] LYMPHOCYTES # (AUTO) - PMC 1.6 1.0 - 3.5 10 3/uL 01/13/2020 6:17 [facility] MONOCYTES # (AUTO) - PMC 0.7 <1.0 10 3/uL 01/13/2020 6:17 [facility] EOSINOPHILS # (AUTO) - PMC 0.1 <0.7 10 3/uL 01/13/2020 6:17 [facility] BASOPHILS # (AUTO) - PMC 0.1 <0.1 10 3/uL 01/13/2020 6:17 [facility] NUCLEATED RBC # (AUTO) - PMC 0.00 <1 10 3/uL 01/13/2020 6:17 [facility] 01/13/2020 5:42 EST 01/13/2020 5:55 EST Narrative [facility] - 01/13/2020 6:48 EST Sample collected by ED but method of collection (IV Start or venipuncture) not indicated on sample. Provider Unknown MD PACKAGES & DNA PROBE ORDERABLES [facility] [address] [place] [address] * OSMOLALITY, UR PMC TEMP (01/13/2020 1:57 EST) Osmolality, Ur 239 150 - 1150 mOsm/kg 01/14/2020 18:37 EST [facility] Comment: Test Performed by: [place] [address] Knapsack Sprayer: Pierre Andersen M.D. Ph.D.; CLIA# [id number] 01/13/2020 1:57 EST 01/13/2020 2:14 EST Provider Unknown CHEMISTRY & BLOOD GA S ORDERABLES Performing Organization Address City/[facility]/ZIP Co de Phone Number [facility] [address] [place] [address] * UA MICROSCOPIC - PMC (01/13/2020 1:57 EST) URINE RBC - PMC None Seen 0 - 2 hpf 0 3:06 [facility] URINE WBC - PMC None seen 0 - 3 hpf 0 3:06 [facility] URINE BACTERIA - PMC None Seen None Seen hpf 01/13/2020 3:06 [facility] URINE MUCUS - PMC None Seen lpf 01/13/2020 3:06 [facility] URINE SQUAMOUS EPITHELIAL CELL - PMC None Seen None-Few hpf 01/13/2020 3:06 [facility] 01/13/2020 1:57 EST 01/13/2020 2:15 EST Narrative [facility] - 01/13/2020 3:07 EST Clean Catch Provider Unknown CHEMISTRY & BLOOD GA S ORDERABLES [facility] [address] [place] [address] * TROPONIN I (01/13/2020 1:57 EST) [facility] Troponin I (ng/mL) <0.050 0 - 0.056 ng/ml 01/13/2020 2:42 EST [facility] Comment: Interpretation: The [...] S ORDERABLES Performing Organization Address [facility] Co de Phone Number [facility] [address] [place] [address] * (ABNORMAL) SODIUM (01/13/2020 1:57 EST) [facility] Sodium 118(CRIT LOW) 136 - 145 mEq/L 01/13/2020 2:59 EST [facility] Comment: Results called and read back to me by: Location: ER Full name: LEV JOSHUA Credentials: RN at 0258 on 01/13/20 by TESS. 01/13/2020 1:57 EST 01/13/2020 2:11 EST Provider Unknown CHEMISTRY & BLOOD GA S ORDERABLES [facility] [address] [place] [address] * (ABNORMAL) BNP - PMC (01/13/2020 1:57 EST) Pathologist [facility] B-TYPE NATRIURETIC PEPTIDE - PMC 549(H) <100 pg/mL 01/13/2020 2:36 EST [facility] 01/13/2020 1:57 EST 01/13/2020 2:12 EST Provider Unknown CHEMISTRY & BLOOD GA S ORDERABLES [facility] [address] [place] [address] * (ABNORMAL) UA (CULTURE IF POSITIVE) - PMC (01/13/2020 1:57 EST) URINE COLOR - PMC Yellow Straw/Yelow 01/13/2020 2:26 [facility] URINE APPEARANCE - PMC Clear Clr/Hazy 01/13/2020 2:26 [facility] URINE PH - PMC 6.0 5.0 - 9.0 01/13/2020 2:26 [facility] UR SPECIFIC GRAVITY (REFRACTOM) - PMC 1.006 1.001 - 1.035 01/13/2020 2:40 [facility] URINE PROTEIN - PMC Negative Negative mg/dL 01/13/2020 2:26 [facility] URINE GLUCOSE (UA) - PMC Negative Negative mg/dL 01/13/2020 2:26 [facility] URINE KETONES - PMC Trace(A) Negative mg/dL 01/13/2020 2:26 [facility] URINE BILIRUBIN - PMC Negative Negative 01/13/2020 2:26 [facility] URINE BLOOD - PMC Trace(A) Negative 01/13/2020 2:26 [facility] URINE UROBILINOGEN - PMC 0.2 0.2 - 1.0 E.U./dL 01/13/2020 2:26 [facility] URINE NITRATE - PMC Negative Negative 01/13/2020 2:26 [facility] URINE LEUKOCYTE ESTERASE - PMC Negative Negative 01/13/2020 2:26 [facility] URINE CULTURE COMMENTS - PMC CRITERIA NOT MET 01/13/2020 3:06 [facility] Comment:Specimen does not me et criteria for culture. 01/13/2020 1:57 EST 01/13/2020 2:15 EST [facility] - 01/13/2020 3:07 EST Clean Catch Provider Unknown MICROBIOLOGY - GENER AL ORDERABLES [facility] [address] [place] [address] * SODIUM, URINE RANDOM (01/13/2020 1:57 EST) Sodium, Urine 52 20 - 110 mEq/L 01/13/2020 2:35 EST [facility] 01/13/2020 1:57 EST 01/13/2020 2:14 EST Provider Unknown MD URINALYSIS ORDERABLE S Performing Organization Address City/State/[facility] Co de Phone Number [facility] [address] [place] [address] documented in this encounter Visit Diagnoses Not on filedocumented in this encounter Care Teams Plumbing Drafter Relationship Specialty Start Date End Date Katia Stone, PA-C [address] [place] [address] PCP - General 05/02/17 documented as of this encounter
--- OUTSIDE RECORDS SUMMARY | 2023-12-15 13:02 | XMS_ITS | Encounter Summary ---
Author Organization [facility] Address [address] [place] [address] Care Team Providers Care Dial Painter Name Role Phone Katia Stone PA-C Primary Care Provider +1- [phone] Reason for Visit * Reason Comments Arrhythmia Encounter Details Date Type Department Care Team (Late st Contact Info) Description 10/13/2019 16:00 EDT Office Visit [facility] Cardiology [address] [address] Tony Rosenberg MD [address] [place] [phone] Heart block AV third degree (HCC-CMS) [...] file Gets together: Not on file Attends sikhism service: Not on file Active member of [...] complete documented in this encounter Care Teams Dial Painter Relationship Specialty Start Date End Date Katia Stone, PABijalC [address] [place] [phone] PCP - General 05/02/17 documented as of this encounter
--- OUTSIDE RECORDS SUMMARY | 2023-12-15 13:02 | XMS_ITS | Encounter Summary ---
Author Organization [facility] Address [address] [place] [address] Care Team Providers Care Duct Cleaner Name Role Phone Katia Stone PA-C Primary Care Provider +1- [phone] Encounter Details Date Type Department Care Team [...] on filedocumented in this encounter Care Teams Duct Cleaner Relationship Specialty Start Date End Date Katia Stone, BELLAC [address] [place] [phone] PCP - General 05/02/17 documented as of this encounter
--- OUTSIDE RECORDS SUMMARY | 2023-12-15 13:02 | XMS_ITS | Encounter Summary ---
Author Organization [facility] Address [address] [place] [address] Care Team Providers Care Technician Anatomic Pathology Name Role Phone Katia Stone PA-C Primary Care Provider +1- [phone] Encounter Details Date Type Department Care Team (Late st Contact Info) Description 06/25/2018 Historical Results Only [facility] [address] [place] [address] [place], [place] [id number] Leonard Crespo MD [address] [place] [address],[address] [place], [place] [id number] [phone] Social History Tobacco Use Types Packs/Day Years [...] Procedure Name Priority Date/Time Associated Diagnosis Comments RCISTO WELCH IGE - PMC Routine 06/25/2018 18:50 [...] IGE - PMC <0.35 06/29/2018 15:54 EDT [facility] Comment: Class 0 (Negative <0.35) Test Performed by: [place] [address] 06/25/2018 18:5 0 EDT 06/25/2018 18:56 EDT Leonard Crespo MD CHEMISTRY & BLOOD GA S ORDERABLES [facility] * ENGLISH MAXWELL IGE - PMC (06/25/2018 18:50 EDT) ENGLISH MAXWELL IGE <0.35 06/29/2018 15:54 EDT [facility] Comment: Class 0 (Negative <0.35) Test Performed by: [address] [id number] 06/25/2018 18:5 0 EDT 06/25/2018 18:56 EDT Leonard Crespo MD CHEMISTRY & BLOOD GA S ORDERABLES [facility] * HOUSE DUST MITES/D.P., IGE - PMC (06/25/2018 18:50 EDT) HOUSE DUST MITES/D.P., IGE - PMC <0.35 06/29/2018 15:54 EDT [facility] Comment: Class 0 (Negative <0.35) Test Performed by: [address] [id number] 06/25/2018 18:5 0 EDT 06/25/2018 18:56 EDT Leonard Crespo MD CHEMISTRY & BLOOD GA S ORDERABLES Performing Organization Address City/[facility]/ZIP Co de Phone Number [facility] * [facility] ALLERGEN,S - PMC (06/25/2018 18:50 EDT) ALTERNARIA TENUIS, IGE - PMC <0.35 06/29/2018 15:54 [facility] Comment:Class 0 (Negative <0 .35) CLAD - PMC <0.35 06/29/2018 15:54 [facility] Comment:Class 0 (Negative <0 .35) HOUSE DUST MITE/D.F., IGE <0.35 06/29/2018 15:54 EDT [facility] Comment: Class 0 (Negative <0.35) Test Performed by: [facility] - [address] [address] CAT - PMC <0.35 06/29/2018 15:54 [facility] Comment:Class 0 (Negative <0 .35) DOG DANDER, IGE - PMC <0.35 06/29/2018 15:54 [facility] Comment:Class 0 (Negative <0 .35) YAYA GRASS IGE - PMC <0.35 06/29/2018 15:54 [facility] Comment:Class 0 (Negative <0 .35) LAMBS QUARTER, IGE - PMC <0.35 06/29/2018 15:54 [facility] Comment:Class 0 (Negative <0 .35) OAK - PMC <0.35 06/29/2018 15:54 [facility] Comment:Class 0 (Negative <0 .35) RAGWEED, SHORT, IGE - PMC <0.35 06/29/2018 15:54 [facility] Comment:Class 0 (Negative <0 .35) CONNER GRASS, IGE - PMC <0.35 06/29/2018 15:54 [facility] Comment:Class 0 (Negative <0 .35) 06/25/2018 18:5 0 EDT 06/25/2018 18:56 EDT Leonard Crespo MD CHEMISTRY & BLOOD GA S ORDERABLES [facility] * (ABNORMAL) HEPATIC & CMP COMBO,FASTING - PMC (06/25/2018 18:50 EDT) Sodium 130(L) 136 - 145 06/25/2018 19:38 [facility] Potassium 4.3 3.5 - 5.1 06/25/2018 19:38 [facility] Chloride 93(L) 96 - 107 06/25/2018 19:38 [facility] CO2 Total 26.4 21 - 32 06/25/2018 19:38 [facility] Anion Gap 10.6 06/25/2018 19:38 [facility] BUN 15 7 - 25 06/25/2018 19:38 [facility] Creatinine 0.86 0.7 - 1.30 06/25/2018 19:38 [facility] Estimated GFR >60 >60 06/25/2018 19:38 [facility] Comment: EGFR UNITS: mL/min/1.73 m 2 CKD-EPI Equation used to calculate. Glucose 89 FASTIN -99 06/25/2018 19:38 [facility] Calcium 8.6 8.5 - 10.5 06/25/2018 19:38 [facility] CALCIUM,CORRECTE D - PMC 9.0 8.5 - 10.5 06/25/2018 19:38 [facility] BILIRUBIN - PMC 0.30 0.00 - 1.00 06/25/2018 19:38 [facility] AST 55(H) 15 - 37 06/25/2018 19:38 [facility] ALT 65 12 - 78 06/25/2018 19:38 [facility] Alkaline Phosphatase 115 46 - 116 06/25/2018 19:38 [facility] Total Protein 7.5 6.4 - 8.2 06/25/2018 19:38 [facility] Albumin 3.5 3.4 - 5.0 06/25/2018 19:38 [facility] GLOBULIN - PMC 4.0 06/25/2018 19:38 [facility] ALBUMIN/GLOBULIN RATIO - PMC 0.8 06/25/2018 19:38 [facility] 06/25/2018 18:5 0 EDT 06/25/2018 18:56 EDT Leonard Crespo MD CHEMISTRY & BLOOD GA S ORDERABLES [facility] documented in this encounter Visit Diagnoses Not on filedocumented in this encounter Care Teams Technician Anatomic Pathology Relationship Specialty Start Date End Date Katia Stone, PABijalC [address] [place] [phone] PCP - General 05/02/17 documented as of this encounter
--- OUTSIDE RECORDS SUMMARY | 2023-12-15 13:02 | XMS_ITS | Encounter Summary ---
Author Organization [facility] Address [address] [place] [address] Care Team Providers Care Airplane Gas Tank Liner Assembler Name Role Phone Katia Stone PA-C Primary Care Provider +1- [phone] Reason for Visit * Reason Onset Date Comments Other 11/03/2019 pacemaker proble m Encounter Details Date Type Department Care Team (Late st Contact Info) Description 11/03/2019 Telephone [facility] - [address] [place] [address] Tony Rosenberg MD [employer] [facility] [address] [place] [address] Other (pacemaker problem) Social History [...] Dr. Rosenberg. Needs to be done at [facility] when we have the lead extraction program up and running. Will keep you posted. JW Nila expressed understanding, she mentioned patient is anxious and would like to have more information regarding next steps. * Telephone Encounter - Marilyn Escoto - 11/03/2019 1017 EDT Spoke with Nila at [employer], she is wondering about update in regards to plan for lead revision. Nila asks for an update you can reach her at [phone] extension [phone] Please advise * Telephone Encounter - Jada Ochoa - 11/03/2019 1015 EDT Patient's pacemaker has been shocking him. documented in this encounter Plan of Treatment Not on file documented as of this encounter Visit Diagnoses Not on filedocumented in this encounter Care Teams Airplane Gas Tank Liner Assembler Relationship Specialty Start Date End Date Katia Stone PA-C [address] [place] [phone] PCP - General 05/02/17 documented as of this encounter
--- OUTSIDE RECORDS SUMMARY | 2023-12-15 13:02 | XMS_ITS | Encounter Summary ---
Author Organization [facility] Address [address] [place] [address] Care Team Providers Care Motor Carrier Inspector Name Role Phone Katia Stone PA-C Primary Care Provider +1- [phone] Encounter Details Date Type Department Care Team (Late st Contact Info) Description 07/19/2018 Historical Results Only [facility] [address] [place] [address] Vick Limon MD [address] [place] [address] Social History Tobacco Use Types [...] WBC 8.1 4.0 - 10.5 07/19/2018 18:47 [facility] RBC 3.65(L) 4.70 - 6.00 07/19/2018 18:47 [facility] Hemoglobin 12.5(L) 13.5 - 18.0 07/19/2018 18:47 [facility] HCT 34.2(L) 42.0 - 52.0 07/19/2018 18:47 [facility] MCV 93.7 78 - 100 07/19/2018 18:47 [facility] MCH 34.2(H) 27 - 31 07/19/2018 18:47 [facility] MCHC 36.5(H) 32 - 36 07/19/2018 18:47 [facility] RDW-CV - PMC 12.4 11.5 - 14.0 07/19/2018 18:47 [facility] PLATELET COUNT - PMC 158 150 - 450 07/19/2018 18:47 [facility] NEUTROPHILS % (AUTO) - PMC 63.5 42.0 - 75.0 07/19/2018 18:47 [facility] LYMPHOCYTES % (AUTO) - PMC 22.6 16.0 - 52.0 07/19/2018 18:47 [facility] MONOCYTES % (AUTO) - PMC 9.6 1.0 - 11.0 07/19/2018 18:47 [facility] EOSINOPHILS % (AUTO) - PMC 2.9 0.0 - 7.0 07/19/2018 18:47 [facility] BASOPHILS % (AUTO) - PMC 0.7 0.0 - 4.0 07/19/2018 18:47 [facility] NUCLEATED RBC % (AUTO) - PMC 0.0 <1 07/19/2018 18:47 [facility] NEUTROPHILS # (AUTO) - PMC 5.2 1.5 - 6.6 07/19/2018 18:47 [facility] LYMPHOCYTES # (AUTO) - PMC 1.8 1.0 - 3.5 07/19/2018 18:47 [facility] MONOCYTES # (AUTO) - PMC 0.8 <1.0 07/19/2018 18:47 [facility] EOSINOPHILS # (AUTO) - PMC 0.2 <0.7 07/19/2018 18:47 [facility] BASOPHILS # (AUTO) - PMC 0.1 <0.1 07/19/2018 18:47 [facility] NUCLEATED RBC # (AUTO) - PMC 0.00 <1 07/19/2018 18:47 [facility] 07/19/2018 18:3 0 EDT 07/19/2018 18:34 EDT Vick Limon MD PACKAGES & DNA PROBE ORDERABLES [facility] * (ABNORMAL) BASIC METABOLIC PANEL,RANDOM - PMC (07/19/2018 18:30 EDT) Sodium 120(L) 136 - 145 07/19/2018 18:52 [facility] Potassium 4.4 3.5 - 5.1 07/19/2018 18:52 [facility] Chloride 83(L) 96 - 107 07/19/2018 18:52 [facility] CO2 Total 24.6 21 - 32 07/19/2018 18:52 [facility] Anion Gap 13.4 07/19/2018 18:52 [facility] BUN 8 7 - 25 07/19/2018 18:52 [facility] Creatinine 0.67(L) 0.7 - 1.30 07/19/2018 18:52 [facility] Estimated GFR >60 >60 07/19/2018 19:01 [facility] Comment: EGFR UNITS: mL/min/1.73 m 2 CKD-EPI Equation used to calculate. Glucose 78 70 - 180 07/19/2018 18:52 [facility] Calcium 8.2(L) 8.5 - 10.5 07/19/2018 18:52 [facility] 07/19/2018 18:3 0 EDT 07/19/2018 18:34 EDT Vick Limon MD CHEMISTRY & BLOOD GA S ORDERABLES Performing Organization Address City/[facility]/ZIP Co de Phone Number [facility] * POCT GLUCOSE (NURSING) - PMC (07/19/2018 18:21 EDT) POC CAPILLARY GLUCOSE - [facility] 86 70 - 100 07/19/2018 18:23 EDT [facility] 07/19/2018 18:2 1 EDT 07/19/2018 18:23 EDT Vick Limon MD POINT OF CARE TEST O RDERABLES [facility] documented in this encounter Visit Diagnoses Not on filedocumented in this encounter Care Teams Motor Carrier Inspector Relationship Specialty Start Date End Date Katia Stone, PABijalC [address] [place] [phone] PCP - General 05/02/17 documented as of this encounter
--- OUTSIDE RECORDS SUMMARY | 2023-12-15 13:02 | XMS_ITS | Encounter Summary ---
Author Organization [facility] Address [address] [place] [address] Care Team Providers Care Primary Care Provider Name Role Phone Katia Stone PA-C Primary Care Provider +1- [phone] Reason for Visit * Reason Onset Date Comments Update 06/12/2017 on admission to [facility] Encounter Details Date Type Department Care Team (Late st Contact Info) Description 06/12/2017 Telephone [facility] Cardiology - [address] [place] [address] Tony Rosenberg MD [address] [place] [address] [address] [place] [address] Update (on admission to [facility]) Social History Tobacco Use Types Packs/Day [...] EDT The pt has been admitted to [facility] * Telephone Encounter - Belinda Falk RN [...] Reason for Call: Update (on admission to [facility]) Summary/Symptoms: Yessica would like to speak to the nurse regarding this patient being admitted to [facility] today at Dr. Guevara request Andra Gonzáles 06/12/2017 9:24 documented in this encounter Plan of Treatment Not on file documented as of this encounter Visit Diagnoses Not on filedocumented in this encounter Care Teams Primary Care Provider Relationship Specialty Start Date End Date Katia Stone, MINGO [address] [place] [phone] PCP - General 05/02/17 documented as of this encounter
--- OUTSIDE RECORDS SUMMARY | 2023-12-15 13:02 | XMS_ITS | Encounter Summary ---
Author Organization [facility] Address [address] [place] [address] Care Team Providers Care Roof Cement And Paint Maker Name Role Phone Katia Stone PA-C Primary Care Provider +1- [phone] Encounter Details Date Type Department Care Team (Late st Contact Info) Description 12/12/2018 Results Only [facility] [address] [place] [address] [place] [address] Wang Vila MD [address] [facility], [facility] 1 [place] [address] Social History Tobacco Use Types [...] 0.40 0.00 - 1.00 mg/dl 12/12/2018 23:24 [facility] DIRECT BILIRUBIN - PMC 0.10 0.00 - 0.30 mg/dl 12/12/2018 23:24 [facility] INDIRECT BILIRUBIN - PMC 0.30 0.00 - 0.80 mg/dl 12/12/2018 23:24 [facility] AST 68(H) 15 - 37 U/L 12/12/2018 23:24 [facility] ALT 53 12 - 78 U/L 12/12/2018 23:24 [facility] Alkaline Phosphatase 98 46 - 116 U/L 12/12/2018 23:24 [facility] Total Protein 7.4 6.4 - 8.2 g/dl 12/12/2018 23:24 [facility] Albumin 3.0(L) 3.4 - 5.0 g/dl 12/12/2018 23:24 EDT [facility] GLOBULIN - PMC 4.4 g/dl 12/12/2018 23:24 EDT [facility] ALBUMIN/GLOBULIN RATIO - PMC 0.6 12/12/2018 23:24 EDT [facility] 12/12/2018 22:1 6 EDT 12/12/2018 23:12 EDT Wang Vila MD CHEMISTRY & BLOOD GA S ORDERABLES Performing Organization Address [facility] Co de Phone Number [facility] * PROCALCITONIN - PMC (12/12/2018 22:16 EDT) Procalcitonin <0.05 <0.50 ng/mL 12/12/2018 23:13 EDT [facility] Comment: Concentration of < [...] & PF4 ORD ERABLES Performing Organization Address City/[facility]/ZIP Co de Phone Number [facility] * (ABNORMAL) BNP - PMC (12/12/2018 22:15 EDT) B-TYPE NATRIURETIC PEPTIDE - PMC 123(H) <100 pg/mL 12/12/2018 22:40 EDT [facility] 12/12/2018 22:1 5 EDT 12/12/2018 22:19 EDT Wang Vila MD CHEMISTRY & BLOOD GA S ORDERABLES Performing Organization Address [facility] de Phone Number [facility] * TROPONIN I (12/12/2018 22:06 EDT) Pathologist [facility] Troponin I (ng/mL) <0.05 <0.10 ng/ml 12/12/2018 23:00 [facility] Comment: REFERENCE RANGE: Negative: ? <0.10 ng/mL Indeterminate: 0.10-0.80 ng/mL Positive: ? >0.80 ng/mL ........................................... The results of this assay can be falsely decreased due to the consumption of Biotin. 12/12/2018 22:0 6 EDT 12/12/2018 22:18 EDT Wang Vila MD CHEMISTRY & BLOOD GA S ORDERABLES Performing Organization Address [facility] de Phone Number [facility] * (ABNORMAL) BASIC METABOLIC PANEL,RANDOM - PMC (12/12/2018 22:06 EDT) [facility] Sodium 120(L) 136 - 145 mEq/L 12/12/2018 23:00 [facility] Potassium 4.6 3.5 - 5.1 mEq/L 12/12/2018 23:00 [facility] Chloride 86(L) 96 - 107 mEq/L 12/12/2018 23:00 [facility] CO2 Total 25.2 21 - 32 mEq/L 12/12/2018 23:00 [facility] Anion Gap 8.8 mEq/L 12/12/2018 23:00 [facility] BUN 7 7 - 25 mg/dl 12/12/2018 23:00 [facility] Creatinine 0.61(L) 0.7 - 1.30 mg/dl 12/12/2018 23:00 [facility] Estimated GFR >60 >60 12/12/2018 23:02 [facility] Comment: EGFR UNITS: mL/min/1.73 m 2 CKD-EPI Equation used to calculate. GLUCOSE,RANDOM - PMC 89 70 - 180 mg/dl 12/12/2018 23:00 EDT [facility] Calcium 8.1(L) 8.5 - 10.5 mg/dl 12/12/2018 23:00 EDT [facility] 12/12/2018 22:0 6 EDT 12/12/2018 22:18 EDT Wang Vila MD CHEMISTRY & BLOOD GA S ORDERABLES [facility] documented in this encounter Visit Diagnoses Not on filedocumented in this encounter Care Teams Roof Cement And Paint Maker Relationship Specialty Start Date End Date Katia Stone, PABijalC [address] [place] [phone] PCP - General 05/02/17 documented as of this encounter
--- OUTSIDE RECORDS SUMMARY | 2023-12-15 13:02 | XMS_ITS | Encounter Summary ---
Author Organization [facility] Address [address] [place] [address] Care Team Providers Care Physician Assistant Psychiatry Name Role Phone Katia Stone PA-C Primary Care Provider +1- [phone] Reason for Visit * Reason Onset Date Comments Coordination Of Care 11/12/2019 Encounter Details Date Type Department Care Team (Late st Contact Info) Description 11/12/2019 Telephone [facility] Cardiology - [place] [address] Belinda Falk, TISH Coordination Of [...] RN - 11/12/2019 1036 EDT An from [employer] calling in to report that patient has had fallen 3 times yesterday. documented in this encounter Plan of Treatment Not on file documented as of this encounter Visit Diagnoses Not on filedocumented in this encounter Care Teams Physician Assistant Psychiatry Relationship Specialty Start Date End Date Katia Stone, BELLAC [address] [place] [address] PCP - General 05/02/17 documented as of this encounter
--- OUTSIDE RECORDS SUMMARY | 2023-12-15 13:02 | XMS_ITS | Encounter Summary ---
Author Organization [facility] Address [address] [place] [address] Care Team Providers Care Poultry Sexer Name Role Phone Katia Stone PA-C Primary Care Provider +1- [phone] Encounter Details Date Type Department Care Team (Late st Contact Info) Description 06/11/2017 Results Only Imaging [facility] Adult Primary Care - [address] [id number] Michael Pratt MD [facility] [place] [address] Social History Tobacco Use Types [...] - there is no report. Procedure Note TECHNICAL PROJECT COORDINATOR, IMAGING - 06/13/2017 This is an outside study - there is no report. Michael Pratt MD IMG OTHER IMAGING OR DERABLES documented in this encounter Visit Diagnoses Not on filedocumented in this encounter Care Teams Poultry Sexer Relationship Specialty Start Date End Date Katia Stone, PABijalC [address] [place] [address] PCP - General 05/02/17 documented as of this encounter
--- OUTSIDE RECORDS SUMMARY | 2023-12-15 13:02 | XMS_ITS | Encounter Summary ---
Author Organization [facility] Address [address] [place] [address] Care Team Providers Care Rail Car Operator Name Role Phone Katia Stone PA-C Primary Care Provider +1- [phone] Encounter Details Date Type Department Care Team (Late st Contact Info) Description 12/12/2018 Results Only Imaging [facility] Radiology Results [address] [place] [address] Wang Vila MD [address] [facility], Level [address] [place] [address] Social History Tobacco Use Types [...] 22:1 5 EDT Narrative 12/12/2018 22:15 EDT [facility] ?[address] ?[place] [address] ?Diagnostic Imaging Report ? Signed ? Patient Name:ADOLPH,DAVID Martinez ? Date of :1950 ?MR Number:[id number] ? Age:68 ?Sex:M ? Category: CR ?Date [...] questions regarding this report, please contact the [facility] at [phone] ? Dictated by: Alma Sherwood DO ?D/ ?? 2215 ?? Transcribed by: GABE ?D/T: ? E-Signed by: Alma Sherwood DO ?D/ ?? 2327 ? Procedure Note Alma Sherwood MD - 01/09/2019 [facility]: [address] [address] Diagnostic Imaging Report Signed Patient Name:DAVID FARFAN FAccount Number:[id number] Date of :1950 MRNumber:[id number] Age:68 Sex:M Category: CR Date ofExam:12/12/18 Procedure: CR: Chest; Frontal/LAT viewsAccession: [id number] Ordering Physician: Wang Vila MD CC: [...] questions regarding this report, please contact the [facility] at [phone] Dictated by: Alma Sherwood DOD/ 2214 Transcribed by: JOSEPH/T: E-Signed by: Alma Sherwood DOD/ 0376 Wang Vila MD IMG DIAGNOSTIC IMAGI NG ORDERABLES documented in this encounter Visit Diagnoses Not on filedocumented in this encounter Additional Health Concerns Infection Onset Date Last Indicated Resolved Time RSV 01/31/2022 01/31/2022 02/10/2022 22:1 5 EST documented as of this encounter Care Teams Rail Car Operator Relationship Specialty Start Date End Date Katia Stone, MINGO [address] [place] [phone] PCP - General 05/02/17 documented as of this encounter
--- OUTSIDE RECORDS SUMMARY | 2023-12-15 13:02 | XMS_ITS | Encounter Summary ---
Author Organization [facility] Address [address] [place] [address] Care Team Providers Care Nutrition Technician Name Role Phone Katia Stone PA-C Primary Care Provider +1- [phone] Encounter Details Date Type Department Care Team (Late st Contact Info) Description 12/12/2018 Results Only [facility] [address] [place] [address] [place] [address] Wang Vila MD 111 [facility], [facility] 1 [place] [address] Social History Tobacco Use Types [...] 4.0 - 10.5 10 3/uL 12/12/2018 22:21 [facility] RBC 3.85(L) 4.70 - 6.00 10 6/uL 12/12/2018 22:21 [facility] Hemoglobin 13.1(L) 13.5 - 18.0 g/dL 12/12/2018 22:21 [facility] HCT 36.1(L) 42.0 - 52.0 % 12/12/2018 22:21 [facility] MCV 93.8 78 - 100 fL 12/12/2018 22:21 [facility] MCH 34.0(H) 27 - 31 pg 12/12/2018 22:21 [facility] MCHC 36.3(H) 32 - 36 g/dL 12/12/2018 22:21 [facility] RDW-CV - PMC 11.9 11.5 - 14.0 % 12/12/2018 22:21 [facility] PLATELET COUNT - PMC 208 150 - 450 10 3/uL 12/12/2018 22:21 [facility] NEUTROPHILS % (AUTO) - PMC 52.5 42.0 - 75.0 % 12/12/2018 22:21 [facility] LYMPHOCYTES % (AUTO) - PMC 32.3 16.0 - 52.0 % 12/12/2018 22:21 [facility] MONOCYTES % (AUTO) - PMC 7.8 1.0 - 11.0 % 12/12/2018 22:21 [facility] EOSINOPHILS % (AUTO) - PMC 5.5 0.0 - 7.0 % 12/12/2018 22:21 [facility] BASOPHILS % (AUTO) - PMC 1.4 0.0 - 4.0 % 12/12/2018 22:21 [facility] NUCLEATED RBC % (AUTO) - PMC 0.0 <1 % 12/12/2018 22:21 [facility] NEUTROPHILS # (AUTO) - PMC 5.3 1.5 - 6.6 10 3/uL 12/12/2018 22:21 [facility] LYMPHOCYTES # (AUTO) - PMC 3.3 1.0 - 3.5 10 3/uL 12/12/2018 22:21 [facility] MONOCYTES # (AUTO) - PMC 0.8 <1.0 10 3/uL 12/12/2018 22:21 [facility] EOSINOPHILS # (AUTO) - PMC 0.6 <0.7 10 3/uL 12/12/2018 22:21 [facility] BASOPHILS # (AUTO) - PMC 0.1 <0.1 10 3/uL 12/12/2018 22:21 [facility] NUCLEATED RBC # (AUTO) - PMC 0.00 <1 10 3/uL 12/12/2018 22:21 [facility] 12/12/2018 22:1 5 EDT 12/12/2018 22:19 EDT Wang Vila MD PACKAGES & DNA PROBE ORDERABLES [facility] documented in this encounter Visit Diagnoses Not on filedocumented in this encounter Care Teams Nutrition Technician Relationship Specialty Start Date End Date Katia Stone PA-C [address] [place] [phone] PCP - General 05/02/17 documented as of this encounter
--- OUTSIDE RECORDS SUMMARY | 2023-12-15 13:02 | XMS_ITS | Encounter Summary ---
Author Organization [facility] Address [address] [place] [address] Care Team Providers Care Motorcycle Riding Instructor Name Role Phone Katia Stone PA-C Primary Care Provider +1- [phone] Reason for Visit * Reason Onset Date Comments Other 08/15/2017 Returning Call 08/15/2017 To Belinda Encounter Details Date Type Department Care Team (Late st Contact Info) Description 08/15/2017 Telephone [facility] Cardiology - [address] [place], [place] [id number] Belinda Falk, TISH Other; Returning Call (To [...] - 08/15/2017 1243 EDT Spoke with Yessica (director of medicare at PCP) in regards to patient Tim Argutea. Mr Argueta contacted PCP office not feeling [...] Yessica patient needs to follow-up with primary learning disabilities specialist in [place] Dr. Torres. Per Yessica patient has not seen Dr. Torres since before his first admission to [facility] on 04/30/17. Mentioned to Yessica, patient needs to be following up with PCP and primary learning disabilities specialist. Yessica expressed understanding and will reach out to Dr. Torres's office at [facility]. Discharge summaries and last OV note [...] by phone. Left detailed message, patient is [place] patient and no showed for visit with Dr. Rosenberg on 08/06. Instructed Yessica to reach out to [facility] where his primary learning disabilities specialist is established on voice mail. documented in this encounter Plan of Treatment Not on file documented as of this encounter Visit Diagnoses Not on filedocumented in this encounter Care Teams Motorcycle Riding Instructor Relationship Specialty Start Date End Date Katia Stone, MINGO [address] [place] [phone] PCP - General 05/02/17 documented as of this encounter
--- OUTSIDE RECORDS SUMMARY | 2023-12-15 13:02 | XMS_ITS | Encounter Summary ---
Author Organization [facility] Address [address] [place] [address] Care Team Providers Care Pipe Connector Name Role Phone Katia Stone PA-C Primary Care Provider +1- [phone] Reason for Visit * Reason Onset Date Comments Other 07/16/2017 Encounter Details Date Type Department Care Team (Late st Contact Info) Description 07/16/[address] [facility] Cardiology [place] [address] Caitie Atwood, TAIWO 111 [facility] 1 [place] [address] Other Social History Tobacco Use [...] 07/16/2017 1358 EDT I spoke to the healthcare insurance sales agent at the [place] primary care offices. There following the patient.He [...] on filedocumented in this encounter Care Teams Pipe Connector Relationship Specialty Start Date End Date Katia Stone, MINGO [address] [place] [phone] PCP - General 05/02/17 documented as of this encounter
--- OUTSIDE RECORDS SUMMARY | 2023-12-15 13:02 | XMS_ITS | Encounter Summary ---
Author Organization [facility] Address [address] [place] [address] Care Team Providers Care Legal Support Manager Name Role Phone Katia Stone PA-C Primary Care Provider +1- [phone] Reason for Visit * Reason Onset Date Comments Labs Only 07/22/2017 from 07/16 Encounter Details Date Type Department Care Team (Late st Contact Info) Description 07/22/2017 Telephone [facility] Cardiology - [facility] [address] [facility] [place] [address] Tony Rosenberg MD [address] [place] [address] [address] [place] [address] Labs Only (from 07/16) Social [...] call office back with call back number [phone]. * Telephone Encounter - Belinda Falk RN - 07/23/2017 1054 EDT Call received from Yessica with questions on when patient's follow-up appointment was with Dr. Rosenberg, where the labwork needed to be sent to, and in put from cardiology. Provided Yessica the provider access line for PCP to discuss patient's care with Dr. Rosenberg. Also discussed with Yessica since patient is seen in [place] records are not accessible to our office (labs, and outside office notes). Yessica to review with PCP and formulate coordination of care with [facility]. * Telephone Encounter - Belinda Falk RN - 07/22/2017 1500 EDT Call placed to Yessica regarding Tim Mera unable to reach patient by phone. Message left on voicemail to call office back with call back number [phone]. * Telephone Encounter - Morena Lux - 07/22/2017 1456 EDT Yessica from [facility] Regarding patients labs from 07/16 Has anyone addressed them Please call to advise documented in this encounter Plan of Treatment Not on file documented as of this encounter Visit Diagnoses Not on filedocumented in this encounter Care Teams Legal Support Manager Relationship Specialty Start Date End Date Katia Stone, MINGO [address] [place] [phone] PCP - General 05/02/17 documented as of this encounter
--- OUTSIDE RECORDS SUMMARY | 2023-12-15 13:02 | XMS_ITS | Encounter Summary ---
Author Organization [facility] Address [address] [place] [address] Care Team Providers Care Hvac Design Engineer Name Role Phone Katia Stone PA-C Primary Care Provider +1- [phone] Encounter Details Date Type Department Care Team (Late st Contact Info) Description 08/20/2018 Historical Results Only [facility] [address] [place], [place] [address] Katia Stone, MINGO [address] [place] [address] Social History Tobacco Use [...] Sodium 121(L) 136 - 145 08/20/2018 12:38 [facility] Potassium 4.7 3.5 - 5.1 08/20/2018 12:38 [facility] Chloride 87(L) 96 - 107 08/20/2018 12:38 [facility] CO2 Total 28.2 21 - 32 08/20/2018 12:38 [facility] Anion Gap 5.8 08/20/2018 12:38 [facility] BUN 7 7 - 25 08/20/2018 12:38 [facility] Creatinine 0.59(L) 0.7 - 1.30 08/20/2018 12:38 [facility] Estimated GFR >60 >60 08/20/2018 12:49 [facility] Comment: EGFR UNITS: mL/min/1.73 m 2 CKD-EPI Equation used to calculate. Glucose 88 FASTIN -99 08/20/2018 12:38 [facility] Calcium 8.6 8.5 - 10.5 08/20/2018 12:38 [facility] CALCIUM,CORRECTE D - PMC 9.0 8.5 - 10.5 08/20/2018 12:38 [facility] BILIRUBIN - PMC 0.60 0.00 - 1.00 08/20/2018 12:38 [facility] AST 41(H) 15 - 37 08/20/2018 12:38 [facility] ALT 47 12 - 78 08/20/2018 12:38 [facility] Alkaline Phosphatase 86 46 - 116 08/20/2018 12:38 EDT [facility] Total Protein 7.5 6.4 - 8.2 08/20/2018 12:38 [facility] Albumin 3.5 3.4 - 5.0 08/20/2018 12:38 [facility] GLOBULIN - PMC 4.0 08/20/2018 12:38 [facility] ALBUMIN/GLOBULIN RATIO - PMC 0.8 08/20/2018 12:38 [facility] 08/20/2018 11:4 8 EDT 08/20/2018 12:07 EDT Katia Stone PA-C CHEMISTRY & BLOOD GAS ORDERABLES [facility] documented in this encounter Visit Diagnoses Not on filedocumented in this encounter Care Teams Hvac Design Engineer Relationship Specialty Start Date End Date Katia Stone PA-C [address] [place] [address] PCP - General 05/02/17 documented as of this encounter
--- OUTSIDE RECORDS SUMMARY | 2023-12-15 13:02 | XMS_ITS | Encounter Summary ---
Author Organization [facility] Address [address] [place] [address] Care Team Providers Care Rubber Block Layer Name Role Phone Katia Stone PA-C Primary Care Provider +1- [phone] Reason for Visit * Reason Onset Date Comments Other 05/29/2017 Encounter Details Date Type Department Care Team (Late st Contact Info) Description 05/29/2017 Telephone [facility] Cardiology - [address] [place], [place] [id number] Daija Mariee, RN Other Social History Tobacco [...] 1018 EDT Spoke with nurse Yessica at [facility] She spoke with pt today and he had 2 episodes of sharp pains that lasted seconds at the pacemaker site Yessica- RN would like a call back with plan She states pt has had a 11# weight gain, denies shortness of breath Daughter in law takes care of meds- [phone] Spoke with pt- he had 2 quick [...] on filedocumented in this encounter Care Teams Rubber Block Layer Relationship Specialty Start Date End Date Katia Stone, MINGO [address] [place] [id number] PCP - General 05/02/17 documented as of this encounter
--- OUTSIDE RECORDS SUMMARY | 2023-12-15 13:02 | XMS_ITS | Encounter Summary ---
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 Encounter Details Date Type Department Care Team (Late st Contact Info) Description 11/30/2019 Telephone [facility] Cardiology - [address] [place] [address] Tony Rosenberg MD [address] [place], [place] [address] [place] [address] Coordination Of Care; Follow-up; Follow-up; [...] Telephone Encounter - Tony Tim - 11/30/2019 5155 EDT Angela is calling to speak to [...] filedocumented in this encounter Care Teams Airplane Woodworker Relationship Specialty Start Date End Date Katia Stone, PABijalC [address] [place] [id number] PCP - General 05/02/17 documented as of this encounter
--- OUTSIDE RECORDS SUMMARY | 2023-12-15 13:02 | XMS_ITS | Encounter Summary ---
Author Organization [facility] Address [address] [place] [address] Care Team Providers Care Application Development Director Name Role Phone Katia Stone PA-C Primary Care Provider +1- [phone] Reason for Visit * Reason Onset Date Comments Other 06/18/2017 discharged on 06.03.15 Follow-up 07/16/2017 Encounter Details Date Type Department Care Team (Late st Contact Info) Description 06/18/2017 Telephone [facility] Cardiology - [address] [place] [address] Pierre Rubio MD [address] [facility] [address] [place] [address] Other (discharged on 06.03.15); Follow-up [...] - 07/16/2017 1310 EDT Riley WINSTON at [facility] called. States : Wt 2 [...] taper and needs [facility] [place], stated colchicine has run out- not sure if pt needs a refill or not. States he called pt's PCP in [place] and that MD wants to know if RN should draw labs? Please call back JOAN as he is with the pt now. Routing to Giovanni Sam NP and Belinda Eddy RN and will also go speak with one of them as well. Let Riley WINSTON know that Belinda Eddy would call back. * Telephone Encounter - Isidra Telles - 07/16/2017 1257 EDT [facility], Weight at 224, has been fluctuating Limited edema Has been winded Less endurance Cough has green secretions Some slight harsh breathing sounds Questions: Blood Work? Prednisone Taper seems to be off, will need a refill if continuing in the same manner * Telephone Encounter - Belinda Falk RN - 06/18/2017 1630 EDT Spoke with Riley horta [facility] mentioned call placed to patient to confirm medication taking. Per patient he was taking Torsemide 40 mg daily and was not taking lasix. Per Bill this was differnet then what was discussed. Referred home Health to discuss care with Shailesh Torres MD in [place] and Katia Mccallum PA-C, On License Of [facility]. * Telephone Encounter - Belinda Falk RN [...] on 06.16.17. He has been feeling ok. [facility] health is calling to discuss his [...] on filedocumented in this encounter Care Teams Application Development Director Relationship Specialty Start Date End Date Katia Stone PA-C [address] [place] [phone] PCP - General 05/02/17 documented as of this encounter
--- OUTSIDE RECORDS SUMMARY | 2023-12-15 13:03 | XMS_ITS | Encounter Summary ---
Author Organization [facility] Address [address] [place] [address] Care Team Providers Care Recreational Therapy Technician Name Role Phone None, Provider Primary Care Provider Katia Wilks PA-C Primary Care Provider [phone] Reason for Referral * (Routine) - Receiving Office to Obtain Authorization Specialty Diagnoses / Procedures Referred By Jael ho Referred To Contact Coleen Yañez NP [address] [place] [phone] Referral ID Status Reason Start Date Expiration Date Visits Requested Visits Authorized [id number] Receiving Office to Obtain Authorization Specialty Services [...] ho Referred To Contact Coleen Yañez NP [address] [place] [phone] Referral ID Status Reason Start Date Expiration Date Visits Requested Visits Authorized [id number] Receiving Office to Obtain Authorization Specialty Services Required 05/02/2017 1 1 Comments You must contact us if we have not contacted you or you have missed your scheduled appointment. If you have any nursing questions, please don't hesitate to call the Cardiac Arrhythmia Service at [facility] at [phone] or , extension [phone]. For any scheduling of appointments, please call [phone] or , extension [phone]. . * (Routine) - Receiving Office to Obtain Authorization Specialty Diagnoses / Procedures Referred By Contac t Referred To Contact Coleen Yañez NP [address] [phone] Referral ID Status Reason Start Date Expiration Date Visits Requested Visits Authorized [id number] Receiving Office to Obtain Authorization Specialty Services Required 05/02/2017 1 1 Comments Appointment on May 13, 2017 at 9 am for an incision site check with the nurse in the device clinic at [facility]. Phone [phone]. [facility] is located at [address] [place] [address] * (Routine) - Receiving Office to Obtain Authorization Specialty Diagnoses / Procedures Referred By Contac t Referred To Contact Coleen Yañez NP [address] [place] [phone] Referral ID Status Reason Start Date Expiration Date Visits Requested Visits Authorized [id number] Receiving Office to Obtain Authorization Specialty Services [...] scheduled at your first appointment. - [facility] [address] [facility] [place] -Clinics are also held in [facility], and [place], [place] and [facility]. If you live in those areas, we will make arrangements for follow-up appointments in one of those clinics.. Reason for Visit * Reason Comments Bradycardia Pt transferred from [facility] [place] with new complete heart block. VSS on arrival. CC DOBBS. Encounter Details Date Type Department Care Team (Late st Contact Info) Description 04/30/2017 17:08 EST - 05/04/2017 18:10 EST Hospital Encounter [facility] Cardiac/Telemetry Unit [address] [place] [id number] Bridget Fields MD [address] [place] [phone] Kenneth Hendrickson MD [address] [place] [phone] [place] Corey MD [address] [place] [phone] Heart block AV third degree (CMS-HCC) (HCC-CMS) [...] Principal/Final Diagnosis: Heart block AV third degree ([facility]) Additional Problems Managed in the Hospital Active Hospital Problems Diagnosis Date Noted ??? *Heart block AV third degree ([facility]) 04/30/2017 ??? Hypertensive urgency 05/01/2017 ??? Acute on chronic diastolic congestive heart failure ([facility]) 05/01/2017 Resolved Hospital Problems Diagnosis Date Noted Date Resolved No resolved problems to display. Principal Procedure: PPM 05/02/17 Secondary Procedures: none Hospital Course: David Farfan is a 66 y.o. male with no known PMH transferred from [facility] on 04/30/17 for complete heart block. 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 He complianed of 2-3 months of SOB which worsened 2-3 weeks prior to admission and reached critical point 2-3 days prior to admission when he had symptoms at rest with 3 pillow orthopnea and mild increased LE swelling prompting presentation to [facility]. On arrival to ED he was afebrile, HR 58, BP 190/103 withnegative labs. ECHO showed EF 65% with moderate concentric LVH, mild LA dilation and mild AST/TR. His HR dropped to the 30s prompting transfer to [facility]. On arrival here patient was asymptomatic [...] Post Hospital Visit with Caitie Atwood NP [facility] Cardiology - [facility] (--) [address] [place] [address] [place] [address] Follow-up appointments and procedures Pacemaker check Your [...] scheduled at your first appointment. - [facility] Cardiology is located at [address] in [place] -Clinics are also held in [facility], and [facility]. If you live in those [...] nurse in the device clinic at [facility]. Phone [phone]. [facility] is located at [address] [place] [address] Authorizing Provider: Coleen Yañez NP ~Please note: You must contact us if we have not contacted you or you have missed your scheduled appointment. If you have any nursing questions, please don't hesitate to call the Cardiac Arrhythmia Service at [facility] at or , extension [phone]. For any scheduling of appointments, please call [phone] or , extension [phone]. . Authorizing Provider: Coleen Yañez NP Additional Information: Appointment on May 13, 2017 at 9 am for an incision site check with the nurse in the device clinic at the [facility]. . [facility] is located at [address] [place] [address] . You have an appointment with Katia Mccallum PA-C at [facility] on 05/29/2017 at1:00 pm. If you have questions or need to reschedule your appointment, please call [phone]. Please arrive 15 minutes early to complete any necessary. Bring a copy of this AVS Summary with you. Cardiology follow up on June 16, 2017 at 2:[address] Torres at the [facility]. [facility] is located at [address] [place] [address]. Pacemaker device check on August 05, 2017 at 10 am at the [facility]. [facility] is located at [address] [place] [address]. Discharge Handoff Communication I called Katia Mccallum's [...] nurse in the device clinic at the [facility]. . [facility] is located at [address] [place] [address] . You have an appointment with Katia Mccallum PA-C at [facility] on 05/29/2017 at1:00 pm. If you have questions or need to reschedule your appointment, please call [phone]. Please arrive 15 minutes early to complete any necessary. Bring a copy of this AVS Summary with you. Cardiology follow up on June 16, 2017 at 2:[address] Torres at the [facility]. [facility] is located at [address] [place] [address]. Pacemaker device check on August 05, 2017 at 10 am at the [facility]. [facility] is located at [address] [place] [address]. * Discharge Instr - Other Orders* Melida [...] and ask to be connected with a criminal justice social worker * Attachments The following attachments cannot be sent through Care Everywhere. * HEART FAILURE: AVOIDING TRIGGERS (TOGOLESE) documented in this encounter Medications at Time [...] - 05/04/2017 1500 EST I spoke with ammunition supervisor CM regarding patient's lack of electricity at his home. She recommended I contact patient's PCP, [facility] for further assistance, but that no other action could be made on Friday. Was unable to leave message for their office today and efforts to contact them on05/02 were met with unreturned messages. I have instructed patient to call their office on Friday to be connected to criminal justice social worker. Amelia Partida DO Internal Medicine [...] pick him up at [facility]. AMEENA TEIXEIRA perfume maker #[phone] * Amelia Partida MD - 05/04/2017 1204 [...] known PMH admitted in transfer 04/30/17 from [facility] for asymptomatic complete heart block [...] this morning. He reports he uses the [email or web address] pharmacy in [place]. Review of Systems Pertinent items are noted [...] known PMH admitted in transfer 04/30/17 from [facility] for asymptomatic complete heart block [...] been connected with Katia Mccallum PA-C for [facility] primary care on 05/29 at 1pm Radha Lowery MD Internal Medicine PGY-2 Pager #[phone] 05/03/2017 13:15 Associated attestation - [place] Corey MD - 05/05/2017 1043 EST Attestation statement: I saw and examined the patient with the resident/fellow. I agree with the findings and plan of care documented in the resident's/fellow's note. Patient seen on 05/02/17 * Desi Villatoro RN - 05/02/2017 1000 EST 05/02: Patient has an appointment with Katia Mccallum PA-C at [facility] on 05/29/2017 at 1:00 to establish care. [...] known PMH admitted in transfer 04/30/17 from [facility] for asymptomatic complete heart block [...] been connected with Katia Mccallum PA-C for [facility] primary care on 05/29 at 1pm [...] FOR ADMISSION: Heart block AV third degree ([facility]) Patient understands reason for admission: PATIENT CONTACT INFO VERIFIED: Yes (Eva Rudolph [phone]) PATIENT ADDRESS VERIFIED: Yes LIVING ARRANGEMENTS AND ACCESSIBILITY ISSUES: Living Arrangements: Alone Levels: 1 Stairs to enter: 2 Handicap access: None Bathroom located on bedroom level?: Yes What in home social supports are available to the patient? Friends / neighbors. Patient lives alonein a mobile home in [place]. He has no immediate family and depends [...] For Finances: No TRANSPORTATION: Transportation: Family CULTURAL, MORMON and/or LANGUAGE factors affecting health care/discharge planning: [...] PCP Verified: Yes (Patient has gone to [facility] in the past to see Dr. Garcia who has since retired.) Specialists: None Type of Home Health Services: None DME Provider: None Pharmacy: [facility] - [address] - [place], [place] - [address] [facility] [id number] Home Health: None Other: POST HOSPITAL TRANSITION PLAN: Case management will continue to follow through transition to discharge. Anticipate discharge to home when medically stable. No needs are identified at this time. Patient said he has a friend who can provide transportation home. Ivelisse Rueda RN Case Manager #[id number] * Reba Marie, [facility] - 05/01/2017 1111 EST Transitions of Care - Pharmacy Admission Medication Reconciliation David Farfan is a 66 y.o. male admitted on 04/30/2017 for Heart block AV third degree ([facility]) Pharmacist Interventions/Recommendations: 1. Per patient report, the only medication he was taking prior to admission was ibuprofen 400mg daily for knee pain. Counseled patient to stop taking ibuprofen/NSAIDs as they are harmful to the heartand raise blood pressure-->recommended using acetaminophen for pain instead. 2. Confirmed patient would like to use [email or web address] in [place], [place] at discharge> please send all discharge prescriptions here. 3. Paged team with findings. Medication History Obtained from: Patient (Self) Medication reconciliation was performed. Discrepancies are noted in BOLD. Clarifications are noted in RED. Medications No prescriptions prior to admission. Additional Prior to Admission Mjtd-rnd-Wknmqey Products as noted by Patient/Family: Ibuprofen 400mg daily for knee pain Preferred Pharmacy: [email or web address] - [place], [place] Barriers to Learning: None apparent Barriers to Obtaining Medications: None apparent Barriers to Taking Medications: None apparent Please feel free to contact me or the Transitions of Care Pharmacy Team with questions or concerns. Thank you Reba Marie, PharmD, [facility] [phone] Pager: [phone] * [place] Corey MD - 05/01/2017 0729 [...] known PMH admitted in transfer 04/30/17 from [facility] for asymptomatic complete heart block [...] H&P Admit Date: 04/30/2017 PCP: Provider None Nurse Orthopaedic: none CC: complete heart block HPI: David Farfan is a 66 y.o. male with no known PMH who presents in transfer from [place] for complete heart block. Briefly, patient last saw a doctor approximately 12 years ago after he was admitted for IN rule outin [place]. He reports having a stress at that time though does not recall being told it was abnormal and was not discharged on any medications. He saw a flower grader once in follow-up and has not had [...] present to the ED. On arrival to [facility], patient was afebrile HR 58, RR 18, [...] ASA 324 mg prior to transfer to [facility]. On arrival here, he was alert [...] remote stress test 12 years ago in [place] Review of Systems A 10 point review of systems was discussed and is negative aside from what is noted in HPI. PMH: none PSH: benign tumor removal R forearm, L knee arthroscopy Family History: no history of early CAD/ IN or heart block Social History: Lifetime non-smoker, currently chews tobacco (1 can lasts 2-3 days). 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 He is currently [...] presents with ??? Bradycardia Pt transferred from [place] with new complete heart block. VSS on arrival. CC DOBBS. HPI HPI Comments: I, Maite Schmitt, am scribing for Kenneth Hendrickson MD while he/she is personallyperforming the service. Maite Schmitt 04/30/2017 17:19 David Farfan is a 66 y.o. male with a history of heart block AV third degree who presents to the ED with bradycardia. The patient was transferred from [place] with complaints of dyspnea on exertion and [...] ER after EKG, whom referred him to [facility] for pacemaker placement. Denies CP, [...] ED with bradycardia.The patient was transferred from [place] with complaints of dyspnea on exertion and [...] W/ CARDS ACCEPTING. NOTE TAKEN DR HENDRICKSON ([facility]). documented in this encounter Miscellaneous Notes * [...] AVS received. Pt left with son and bceqbqcj-fs-qwc via wheelchair. BP 115/79 (BP Cuff Location: [...] Care - Don Alvarado RN - 05/02/2017 0656 EST Problem: Daily Care Plan Goals Goal: [...] Care - Meet Matias RN - 05/02/2017 8047 EST Problem: Daily Care Plan Goals Goal: [...] tele D: Patient arrived to [place] [address] at 1900. Vital signs noted, BP 180s/80s. [...] EST) 05/09/2017 13:5 1 EST Scan 2 General Manager Land Department PROCEDURE/MINOR VELMA GICAL ORDERABLES * ECG REPORT - SCANNED (05/08/2017 8:27 EST) 05/08/2017 8:27 EST Scan 2 General Manager Land Department PROCEDURE/MINOR VELMA GICAL ORDERABLES * IMPLANT RECORD - SCANNED (05/08/2017 8:14 EST) 05/08/2017 8:14 EST Scan 2 General Manager Land Department PROCEDURE/MINOR VELMA GICAL ORDERABLES * ECG REPORT - SCANNED (05/08/2017 8:14 EST) 05/08/2017 8:14 EST Scan 2 General Manager Land Department PROCEDURE/MINOR VELMA GICAL ORDERABLES * ECG REPORT - SCANNED (05/08/2017 8:14 EST) 05/08/2017 8:14 EST Scan 2 General Manager Land Department PROCEDURE/MINOR VELMA GICAL ORDERABLES * IMPLANT RECORD - SCANNED (05/08/2017 8:14 EST) 05/08/2017 8:14 EST Scan 2 General Manager Land Department PROCEDURE/MINOR VELMA GICAL ORDERABLES * (ABNORMAL) GLUCOSE, GLUCOMETER (05/04/2017 7:41 EST) Glucose, Fingerstick 104(H) 70 - 100 mg/dl 05/04/2017 7:42 EST [facility] Principal Trainer ID [id number] 05/04/2017 7:42 EST [facility] Comment:Test Performed by Nu rsing Services BLOOD SPECIMEN / Unknown 05/04/2017 7:41 EST 05/04/2017 7:42 EST [place] Corey MD CHEMISTRY & BLOO D GAS ORDERABLES Performing Organization Address City/[facility]/ZIP Co de Phone Number [facility] [address] [place] [address] * CREATININE (05/03/2017 5:42 EST) Creatinine 0.67 0.66 - 1.25 mg/dl 05/03/2017 6:56 EST [facility] GFR, Calculated 100 >60 ml/min/1.7 3m2 05/03/2017 6:56 EST [facility] Comment: eGFR calculated using CKD-EPI equation for non Americans. Multiply eGFR by 1.16 for Americans. Blood specimen (specimen) BLOOD SPECIMEN / Unknown 05/03/2017 5:42 EST 05/03/2017 6:20 EST [place] Corey MD CHEMISTRY & BLOO D GAS ORDERABLES Performing Organization Address [facility]/ZIP Co de Phone Number [facility] [address] [place] [address] * (ABNORMAL) BUN (05/03/2017 5:42 EST) BUN 8(L) 10 - 26 mg/dl 05/03/2017 6:56 EST [facility] Blood specimen (specimen) BLOOD SPECIMEN / Unknown 05/03/2017 5:42 EST 05/03/2017 6:20 EST [place] Corey MD CHEMISTRY & BLOO D GAS ORDERABLES Performing Organization Address [facility] Co de Phone Number [facility] [address] [place] [address] * (ABNORMAL) ELECTROLYTES (05/03/2017 5:42 EST) Sodium 134(L) 136 - 145 mEq/L 05/03/2017 6:56 EST [facility] Potassium 4.2 3.5 - 5.0 mEq/L 05/03/2017 6:56 [facility] Chloride 99 96 - 110 mEq/L 05/03/2017 6:56 [facility] CO2 26 22 - 32 mEq/L 05/03/2017 6:56 [facility] Blood specimen (specimen) BLOOD SPECIMEN / Unknown 05/03/2017 5:42 EST 05/03/2017 6:20 EST [place] Corey MD CHEMISTRY & BLOO D GAS ORDERABLES [facility] [address] [place] [address] * (ABNORMAL) HEMAGRAM (05/03/2017 5:42 EST) WBC 7.95 4.0 - 10.4 K/cmm 05/03/2017 6:46 [facility] RBC 3.97(L) 4.36 - 5.78 M/cmm 05/03/2017 6:46 [facility] Hemoglobin 13.3(L) 13.8 - 17.3 gm/dl 05/03/2017 6:46 [facility] HCT 38.4(L) 39.5 - 50.2 % 05/03/2017 6:46 [facility] MCV 97(H) 81 - 95 fl 05/03/2017 6:46 [facility] MCH 33.5(H) 27.6 - 33.0 pg 05/03/2017 6:46 [facility] MCHC 34.6 32.8 - 36.4 gm/dl 05/03/2017 6:46 [facility] RDW-CV 11.9 <14.2 % 05/03/2017 6:46 [facility] RDW-SD 42.4 <46.0 fl 05/03/2017 6:46 [facility] PLT 196 141 - 377 K/cmm 05/03/2017 6:46 [facility] MPV 12.6 9.5 - 12.7 fl 05/03/2017 6:46 [facility] Blood specimen (specimen) BLOOD SPECIMEN / Unknown 05/03/2017 5:42 EST 05/03/2017 6:20 EST [place] Corey MD HEMATOLOGY & PF4 ORDERABLES [facility] [address] [place] [address] * EKG 12-LEAD (05/03/2017 4:23 EST) 05/03/2017 4:23 EST Narrative [facility] E[facility] - 05/09/2017 13:47 EST ? [facility] ? Test Date: ?2017-05-03 Pat Name: ? DAVID FARFAN ?Department: ?? [facility] [address] ? Room: ? MW514 Gender: ? M ?Stitch Burnisher: ?? [id number] : ?1950 ? Requested By: MARIO ALBERTO SCANLON Order Number: [id number] ? Martha OAKES: ?? SENG PERSON SA, MD ? Measurements Intervals ?[place] ? Rate: ? 75 ? P: ?51 [...] Seng Brody Sa, MD - 05/09/2017 [facility] Test Date: 2017-05-03 Pat Name: DAVID FARFAN Department: JAME Chao Room: [facility] Gender: M Stitch Burnisher: [id number] : 1950 Requested By: MARIO ALBERTO SCANLON Order Number: [id number] [place] MD: SENG ROBLEDO Measurements Intervals [place] Rate: 75 P: 51 FL: 172 QRS: [...] Joesph Louie MD CARDIAC ECG ORDERABL ES [facility] EKG * ECG REPORT - SCANNED (05/02/2017 11:16 EST) 05/02/2017 11:1 6 EST Scan 2 General Manager Land Department PROCEDURE/MINOR VELMA GICAL ORDERABLES * PORTABLE CHEST [...] 10:10 EST) 05/02/2017 10:1 0 EST Narrative [facility] EKG - 05/08/2017 8:22 EST ? [facility] ? Test Date: ?2017-05-02 Pat Name: ? DAVID FARFAN ?Department: ?? [facility] [address] ? Room: ? MW514 Gender: ? M ?Stitch Burnisher: ?? [id number] : ?1950 ? Requested By: SHAKIRA Martinez Order Number: [id number] ? Martha OAKES: ?? LALY BARBER MD ? Measurements Intervals ?[place] ? Rate: ? 63 ? P: ?40 [...] Note Laly Barber MD - 05/08/2017 [facility] Test Date: 2017-05-02 Pat Name: DAVID FARFAN Department: [place] [address] Room: [facility] Gender: M Stitch Burnisher: [id number] : 1950 Requested By: SHAKIRA Martinez Order Number: [id number] [place] MD: LALY BARBER MD Measurements Intervals [place] Rate: 63 P: 40 FL: 170 QRS: -72 QRSD: 180 T: 86 QT: 492 QTc: 504 Interpretive Statements DUAL CHAMBER PACER ELECTRONIC VENTRICULAR PACEMAKER I reviewed the tracing and have either agreed or edited the findings inthis report. Electronically Signed On 05-08-17 08:22:30 EST by LALY YAO. Tony Rosenberg MD CARDIAC ECG O RDERABLES [facility] EKG * PERMANENT PACEMAKER PROCEDURE (05/02/2017 10:00 EST) Anatomical Region Laterality Modality Other 05/02/2017 10:0 0 EST Narrative 05/02/2017 11:24 EST *Cardiology* [address] [place] [address] Device Implantation Patient: David Farfan ? Study Date: ?05/02/2017 ? Accession #: ? [id number] : ? 1950 Referring: Attending: Tony Rosenberg [...] HARDWARE: Implanted device: Clifford Appiah Serial number: [id number]. LEAD PARAMETERS + + + + Lead # ? 1 ? 2 ? + + + + Chamber ? RA ? RV ? + + + + Date implanted ?? 05/02/2017 ? 05/02/2017 ? + + + + Model information [employer] ? [employer] Ingevity ? ingevity mr ? MRI ? + + + + Serial number ? [id number] ? [id number] ? + + + + Location ? [...] Note Tony Rosenberg MD - 05/02/2017 *Cardiology* [address] [place] [address] Device Implantation Patient: David Farfan Study Date: [...] device: Clifford ESTEVEZ DR - Serial number: [id number]. LEAD PARAMETERS + + + + Lead # 1 2 + + + + Chamber RA RV + + + + Date implanted 05/02/2017 05/02/2017 + + + + Model information [employer] Mathew hood mr MRI + + + + Serial number [id number] + + + + Location RA appendage [...] 0.68 0.66 - 1.25 mg/dl 05/02/2017 7:26 [facility] GFR, Calculated 100 >60 ml/min/1.7 3m2 05/02/2017 7:26 [facility] Comment: eGFR calculated using CKD-EPI equation for non Americans. Multiply eGFR by 1.16 for Americans. Blood specimen (specimen) BLOOD SPECIMEN / Unknown 05/02/2017 6:11 EST 05/02/2017 6:47 EST [place] Corey MD CHEMISTRY & BLOO D GAS ORDERABLES [facility] [address] [place] [address] * BUN (05/02/2017 6:11 EST) BUN 10 10 - 26 mg/dl 05/02/2017 7:26 [facility] Blood specimen (specimen) BLOOD SPECIMEN / Unknown 05/02/2017 6:11 EST 05/02/2017 6:47 EST [place] Corey MD CHEMISTRY & BLOO D GAS ORDERABLES Performing Organization Address [facility] Co de Phone Number [facility] [address] [place] [address] * (ABNORMAL) ELECTROLYTES (05/02/2017 6:11 EST) Sodium 135(L) 136 - 145 mEq/L 05/02/2017 7:26 [facility] Potassium 4.4 3.5 - 5.0 mEq/L 05/02/2017 7:26 [facility] Chloride 102 96 - 110 mEq/L 05/02/2017 7:26 [facility] CO2 23 22 - 32 mEq/L 05/02/2017 7:26 [facility] Blood specimen (specimen) BLOOD SPECIMEN / Unknown 05/02/2017 6:11 EST 05/02/2017 6:47 EST Houston Corey MD CHEMISTRY & BLOO D GAS ORDERABLES Performing Organization Address [facility]/ZIP Co de Phone Number [facility] [address] [place] [address] * (ABNORMAL) HEMAGRAM (05/02/2017 6:11 EST) WBC 6.92 4.0 - 10.4 K/cmm 05/02/2017 6:59 [facility] RBC 3.67(L) 4.36 - 5.78 M/cmm 05/02/2017 6:59 [facility] Hemoglobin 12.3(L) 13.8 - 17.3 gm/dl 05/02/2017 6:59 [facility] HCT 35.2(L) 39.5 - 50.2 % 05/02/2017 6:59 [facility] MCV 96(H) 81 - 95 fl 05/02/2017 6:59 [facility] MCH 33.5(H) 27.6 - 33.0 pg 05/02/2017 6:59 EST [facility] MCHC 34.9 32.8 - 36.4 gm/dl 05/02/2017 6:59 EST [facility] RDW-CV 11.9 <14.2 % 05/02/2017 6:59 [facility] RDW-SD 41.1 <46.0 fl 05/02/2017 6:59 EST [facility] PLT 185 141 - 377 K/cmm 05/02/2017 6:59 [facility] MPV 12.9(H) 9.5 - 12.7 fl 05/02/2017 6:59 EST [facility] Blood specimen (specimen) BLOOD SPECIMEN / Unknown 05/02/2017 6:11 EST 05/02/2017 6:47 EST Houston Corey MD HEMATOLOGY & PF4 ORDERABLES Performing Organization Address City/[facility] Co de Phone Number [facility] [address] [place] [address] * (ABNORMAL) TROPONIN I (05/01/2017 7:52 EST) Troponin I (ng/mL) 0.035(H) <0.034 ng/ml 05/01/2017 9:10 EST [facility] Blood specimen (specimen) BLOOD SPECIMEN / Unknown 05/01/2017 7:52 EST 05/01/2017 8:19 EST Amelia Partida DO CHEMISTRY & BLOOD GAS ORDERABLES Performing Organization Address City/[facility]/ZIP Co de Phone Number [facility] [address] [place] [address] * MAGNESIUM (05/01/2017 6:01 EST) Magnesium 2.1 1.7 - 2.8 mg/dl 05/01/2017 6:46 EST [facility] Blood specimen (specimen) BLOOD SPECIMEN / Unknown 05/01/2017 6:01 EST 05/01/2017 6:15 EST Amelia Partida DO CHEMISTRY & BLOOD GAS ORDERABLES Performing Organization Address [facility] Co de Phone Number [facility] [address] [place] [address] * CREATININE (05/01/2017 6:01 EST) Creatinine 0.67 0.66 - 1.25 mg/dl 05/01/2017 6:46 [facility] GFR, Calculated 100 >60 ml/min/1.7 3m2 05/01/2017 6:46 [facility] Comment: eGFR calculated using CKD-EPI equation for non Americans. Multiply eGFR by 1.16 for Americans. Blood specimen (specimen) BLOOD SPECIMEN / Unknown 05/01/2017 6:01 EST 05/01/2017 6:15 EST Houston Corey MD CHEMISTRY & BLOO D GAS ORDERABLES Performing Organization Address [facility] Co de Phone Number [facility] [address] [place] [address] * (ABNORMAL) BUN (05/01/2017 6:01 EST) BUN 6(L) 10 - 26 mg/dl 05/01/2017 6:46 [facility] Blood specimen (specimen) BLOOD SPECIMEN / Unknown 05/01/2017 6:01 EST 05/01/2017 6:15 EST Houston Corey MD CHEMISTRY & BLOO D GAS ORDERABLES Performing Organization Address [facility] Co de Phone Number [facility] [address] [place] [address] * (ABNORMAL) ELECTROLYTES (05/01/2017 6:01 EST) Sodium 134(L) 136 - 145 mEq/L 05/01/2017 6:46 [facility] Potassium 4.5 3.5 - 5.0 mEq/L 05/01/2017 6:46 [facility] Chloride 101 96 - 110 mEq/L 05/01/2017 6:46 [facility] CO2 23 22 - 32 mEq/L 05/01/2017 6:46 [facility] Blood specimen (specimen) BLOOD SPECIMEN / Unknown 05/01/2017 6:01 EST 05/01/2017 6:15 EST Houston Corey MD CHEMISTRY & BLOO D GAS ORDERABLES [facility] [address] [place] [address] * (ABNORMAL) HEMAGRAM (05/01/2017 6:01 EST) WBC 7.09 4.0 - 10.4 K/cmm 05/01/2017 6:27 [facility] RBC 3.76(L) 4.36 - 5.78 M/cmm 05/01/2017 6:27 [facility] Hemoglobin 12.7(L) 13.8 - 17.3 gm/dl 05/01/2017 6:27 [facility] HCT 36.4(L) 39.5 - 50.2 % 05/01/2017 6:27 [facility] MCV 97(H) 81 - 95 fl 05/01/2017 6:27 [facility] MCH 33.8(H) 27.6 - 33.0 pg 05/01/2017 6:27 [facility] MCHC 34.9 32.8 - 36.4 gm/dl 05/01/2017 6:27 [facility] RDW-CV 11.9 <14.2 % 05/01/2017 6:27 [facility] RDW-SD 42.1 <46.0 fl 05/01/2017 6:27 [facility] PLT 205 141 - 377 K/cmm 05/01/2017 6:27 [facility] MPV 12.8(H) 9.5 - 12.7 fl 05/01/2017 6:27 [facility] Blood specimen (specimen) BLOOD SPECIMEN / Unknown 05/01/2017 6:01 EST 05/01/2017 6:15 EST Houston Corey MD HEMATOLOGY & PF4 ORDERABLES Performing Organization Address [facility] Co de Phone Number [facility] [address] [place] [address] * LIPID PROFILE (INCLUDES CHOLESTEROL, TRIGLYCERIDES, HDL, LDL) (05/01/2017 6:01 EST) Cholesterol 148 mg/dl 05/01/2017 6:46 [facility] Comment: Desirable:<200 Borderline High:200-239 High:>fx=185 Triglycerides 65 mg/dl 05/01/2017 6:46 [facility] Comment: Normal:<150 Borderline High:150-199 High:200-499 Very High:>dc=143 HDL 39 mg/dl 05/01/2017 6:46 [facility] Comment: Low:<40 Normal:40-60 Desirable: >60 LDL, Calculated 96 mg/dl 8 6:46 [facility] Comment: Optimal:<100 Near Optimal:100-129 Borderline High:130-159 High:160-189 Very High:>yw=609 Chol/HDL Ratio 3.8 05/01/2017 6:46 [facility] Fasting? Unknown 05/01/2017 6:46 [facility] Non HDL Cholesterol 109 mg/dl 05/01/2017 6:46 [facility] Comment: Desirable:<130 Borderline:130-159 High: 160-189 Very High: >gh=239 Blood specimen (specimen) BLOOD SPECIMEN / Unknown 05/01/2017 6:01 EST 05/01/2017 6:15 EST Houston Corey MD CHEMISTRY & BLOO D GAS ORDERABLES Performing Organization Address City/[facility]/ZIP Co de Phone Number [facility] [address] [place] [address] * (ABNORMAL) TROPONIN I (05/01/2017 0:20 EST) Troponin I (ng/mL) 0.055(H) <0.034 ng/ml 05/01/2017 1:01 [facility] Blood specimen (specimen) BLOOD SPECIMEN / Unknown 05/01/2017 0:20 EST 05/01/2017 0:24 EST Amelia Partida DO CHEMISTRY & BLOOD GAS ORDERABLES Performing Organization Address [facility] Co de Phone Number [facility] [address] [place] [address] * HEMOGLOBIN A1C (05/01/2017 0:20 EST) Hemoglobin A1C 5.7 % 05/01/2017 10:05 [facility] Comment: Reference Range: <5.7% Normal 5.7-6.4% Prediabetes =>6.5% Diagnostic for diabetes (if confirmed) Goals for glycemic control in diabetes ADA 2017 For non adults with diabetes: ?? Target <7.5% For children and adolescents with type 1 diabetes: ?? Target <7.0% More or less stringent targets may be appropriate for individual patients. Est Avg Glucose 117 mg/dl 8 10:05 [facility] Comment: eAG represents the A1c result expressed as average glucose in mg/dl. Blood specimen (specimen) BLOOD SPECIMEN / Unknown 05/01/2017 0:20 EST 05/01/2017 0:24 EST Houston Corey MD CHEMISTRY & BLOO D GAS ORDERABLES Performing Organization Address [facility] Co de Phone Number [facility] [address] [place] [address] * (ABNORMAL) PROTIME (04/30/2017 19:33 EST) Pro Time 15.1(H) 10.3 - 13.4 secs 04/30/2017 20:08 [facility] Comment:NOTE NEW REFERENCE Vern FUNG OF APR 03 2017 I.N.R. 1.3(H) 0.9 - 1.1 Ratio 04/30/2017 20:08 [facility] Comment: Moderate Intensity Coumadin INR = 2.0-3.0 Adjustments in anticoagulant therapy dose should be based upon the INR and NOT the Pro Time. Blood specimen (specimen) BLOOD SPECIMEN / Unknown 04/30/2017 19:33 EST 04/30/2017 19:47 EST Houston Corey MD HEMATOLOGY & PF4 ORDERABLES Performing Organization Address City/[facility]/ZIP Co de Phone Number [facility] [address] [place] [address] * ED/URGENT CARE ADD-ON (04/30/2017 18:20 EST) Tests to be added LYME AB, 04/30/2017 18:16 EST [facility] Comment:TSH Number for problems [id number] (ED) 04/30/2017 18:16 EST [facility] TOPOGRAPHY UNKNOWN / Unknown 04/30/2017 18:20 EST 04/30/2017 18:23 EST Amelia Partida DO HEMATOLOGY & PF4 ORDERABLES Performing Organization Address City/[facility] Co de Phone Number [facility] [address] [place] [address] * OUTSIDE IMAGES ??? ECHO IMAGES (04/30/2017 17:24 EST) Anatomical Region Laterality Modality Other 04/30/2017 17:2 4 EST Narrative 04/30/2017 17:24 EST This is an outside study - there is no report. 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 Provider Unknown IMG OTHER IMAGING OR DERABLES * EKG 12-LEAD (04/30/2017 16:43 EST) 04/30/2017 16:4 3 EST Narrative [facility] EKG - 05/02/2017 11:12 EST ?[facility] Emergency ? Test Date: ?2017-04-30 Pat Name: ? DAVID FARFAN ?Department: ?? ED ? Room: ? AC12 Gender: ? M ?Stitch Burnisher: ?? [id number] : ?1950 ? Requested By: DONNA HOOK L Order Number: [id number] ? [place] MD: ?? ANA LOBEL MD ? Measurements Intervals ?[place] ? Rate: ? 33 ? P: ? [...] by ANA MARSH MD. Procedure Note Ana Marhs MD - 05/02/2017 [facility] Emergency Test Date: 2017-04-30 Pat Name: DAVID FARFAN Department: ED Room: [facility] Gender: M Stitch Burnisher: [id number] : 1950 Requested By: DONNA Cabral Order Number: [id number] [place] MD: ANA MARSH MD Measurements Intervals [place] Rate: 33 P: [place]: 0 QRS: 15 [...] Bridget Fields MD CARDIAC ECG ORDERAB LES [facility] E[facility] * TSH (04/30/2017 16:40 EST) TSH 1.34 0.47 - 4.68 uIU/ml 04/30/2017 19:24 [facility] BLOOD SPECIMEN / Unknown 04/30/2017 16:40 EST 04/30/2017 16:52 EST Bridget Fields MD CHEMISTRY & BLOOD G ORDERABLES [facility] [address] [place] [address] * LYME AB (04/30/2017 16:40 EST) Lyme AB Negative 05/01/2017 11:39 [facility] Comment:Reference Range: Neg ative BLOOD SPECIMEN / Unknown 04/30/2017 16:40 EST 04/30/2017 16:52 EST Bridget Fields MD IMMUNOLOGY AND SERO LOGY ORDERABLES Performing Organization Address [facility] Co de Phone Number [facility] [address] [place] [address] * (ABNORMAL) PROFILE ED CARDIAC PACK (04/30/2017 16:40 EST) Sodium 134(L) 136 - 145 mEq/L 04/30/2017 17:16 [facility] Potassium 4.2 3.5 - 5.0 mEq/L 04/30/2017 17:16 [facility] Chloride 105 96 - 110 mEq/L 04/30/2017 17:16 [facility] CO2 20(L) 22 - 32 mEq/L 04/30/2017 17:16 [facility] BUN 6(L) 10 - 26 mg/dl 04/30/2017 17:16 [facility] Creatinine 0.61(L) 0.66 - 1.25 mg/dl 04/30/2017 17:16 [facility] GFR, Calculated 104 >60 ml/min/1 .73m2 04/30/2017 17:16 [facility] Comment: eGFR calculated using CKD-EPI equation for non Americans. Multiply eGFR by 1.16 for Americans. Magnesium 1.7 1.7 - 2.8 mg/dl 04/30/2017 17:16 [facility] WBC 7.78 4.0 - 10.4 K/cmm 04/30/2017 17:12 [facility] RBC 3.72(L) 4.36 - 5.78 M/cmm 04/30/2017 17:12 [facility] Hemoglobin 12.6(L) 13.8 - 17.3 gm/dl 04/30/2017 17:12 [facility] HCT 35.7(L) 39.5 - 50.2 % 04/30/2017 17:12 [facility] MCV 96(H) 81 - 95 fl 04/30/2017 17:12 [facility] MCH 33.9(H) 27.6 - 33.0 pg 04/30/2017 17:12 [facility] MCHC 35.3 32.8 - 36.4 gm/dl 04/30/2017 17:12 [facility] RDW-CV 11.9 <14.2 % 04/30/2017 17:12 [facility] RDW-SD 41.5 <46.0 fl 04/30/2017 17:12 [facility] PLT 197 141 - 377 K/cmm 04/30/2017 17:12 [facility] MPV 12.5 9.5 - 12.7 fl 04/30/2017 17:12 [facility] % Neutrophils 62.1 % 04/30/2017 17:12 [facility] % Lymphocytes 23.9 % 04/30/2017 17:12 [facility] % Monocytes 11.6 % 04/30/2017 17:12 [facility] % Eosinophils 1.2 % 04/30/2017 17:12 [facility] % Basophils 0.9 % 04/30/2017 17:12 [facility] % Immature Grans 0.3 % 04/30/2017 17:12 [facility] ABS Neutrophils 4.84 2.20 - 8.85 K/cmm 04/30/2017 17:12 [facility] ABS Lymphs 1.86 1.09 - 3.30 K/cmm 04/30/2017 17:12 [facility] ABS Monocytes 0.90(H) 0.1 - 0.8 K/cmm 04/30/2017 17:12 [facility] ABS Eosinophils 0.09 0.03 - 0.61 K/cm 04/30/2017 17:12 [facility] ABS Basophils 0.07 0.01 - 0.11 K/cm 04/30/2017 17:12 [facility] ABS Immature Grans 0.02 0 - 0.06 K/cm 04/30/2017 17:12 [facility] Type of Diff: Automated 04/30/2017 17:12 [facility] Troponin I (ng/mL) 0.040(H) <0.034 ng/ml 04/30/2017 17:29 [facility] Glucose, Screening 100 70 - 100 mg/dl 04/30/2017 17:16 [facility] Hold Blue Top Sample for coagulation will be discarded after 4 hours 04/30/2017 17:04 [facility] Blood specimen (specimen) BLOOD SPECIMEN / Unknown 04/30/2017 16:40 EST 04/30/2017 16:52 EST Bridget Fields MD PACKAGES & DNA PROB E ORDERABLES Performing Organization Address City/State/[facility] Co de Phone Number [facility] [address] [place] [address] documented in this encounter Visit Diagnoses Diagnosis [...] 04/201705/01/2017 documented in this encounter Care Teams Recreational Therapy Technician Relationship Specialty Start Date End Date None, Provider PCP - General 04/30/17 05/01/17 Katia Stone, PABijalC [address] [place] [id number] PCP - General 05/02/17 documented as of this encounter
--- OUTSIDE RECORDS SUMMARY | 2023-12-15 13:03 | XMS_ITS | Encounter Summary ---
Author Organization [facility] Address [address] [place] [address] Care Team Providers Care Crocheter Name Role Phone Katia Stone PA-C Primary Care Provider [phone]- [phone] Encounter Details Date Type Department Care Team (Late st Contact Info) Description 05/20/2017 Results Only Imaging [facility] [phone] Unknown, Provider, Social History Tobacco Use Types [...] filedocumented in this encounter Care Teams Crocheter Relationship Specialty Start Date End Date Katia Stone PA-C [address] [place] [phone] PCP - General 05/02/17 documented as of this encounter
--- OUTSIDE RECORDS SUMMARY | 2023-12-15 13:03 | XMS_ITS | Encounter Summary ---
Author Organization [facility] Address [address] [place] [address] Care Team Providers Care Workday Manager Name Role Phone Katia Stone PA-C Primary Care Provider [phone]- [phone] Encounter Details Date Type Department Care Team (Late st Contact Info) Description 05/20/2017 Results Only Imaging [facility] [phone] Unknown, Provider, Social History Tobacco Use Types [...] on filedocumented in this encounter Care Teams Workday Manager Relationship Specialty Start Date End Date Katia Stone PA-C [address] [place] [phone] PCP - General 05/02/17 documented as of this encounter
--- OUTSIDE RECORDS SUMMARY | 2023-12-15 13:03 | XMS_ITS | Clinical Summary ---
Author Organization [facility] Address [facility] [place] [address] Care Team Providers Care Leadership Program Internship Name Role Phone Katia Stone Primary Care [...] Date Diagnosed Date Pacemaker - dual lead [employer] pacemake r 09/24/2022 Overview (09/24/2022): Greige Goods Inspector Model # Serial # Generator (New) [employer] [id number] Atrial Lead (New) [employer] [id number] RV Lead [employer] [id number] 09/23/2022 - RA lead fx and RV lead with insulation breach - both capped and abandoned with new atrial and ventricular leads Placed as well as PG replacement for DIONICIO Complete heart block 09/23/2022 Encounters Date Type Department Care Team Description 11/06/2023 10:00 AM EDT - 11/06/2023 11:59 PM EDT Hospital Encounter [place] [address] Discharge Disposition: Home from Last [...] Care Team (Late st Contact Info) Description 02/04/2024 10:00 AM EST Hospital Encounter [place] [phone] Arrived Health Maintenance Due Date Last Done Comments CT Colonography 1950 Colonoscopy 1950 Colorectal Cancer Screening 1950 FIT DNA 1950 FIT 1950 Sigmoidoscopy (10 year) with FIT yearly 1950 Sigmoidoscopy 1950 Pneumoccocal Vaccine: 65+ (1 of 2 - PCV) 1956 Hepatitis C Screening 1968 Lipid Screening 1968 Tetanus/Diphtheria/Pertussis Vaccines (1 - Tdap) 10/05 Zoster vaccine (1 of 2) 2000 Advance Directive 2005 Covid-19 Vaccine (1 - season) 2023 Influenza (Flu) vaccine (1 o f 1 - Influenza standard series) 11/02/2023 Medical Devices Implanted Type Area [employer]ige Good[employer] Inspector Device Identifier Shelf Expiration Date Model / Serial / Lot Bsx: 7841: [id number] Implanted: by Dylan Story MD (Quantity not on file) Lead Heart [employer] 7841 / [id number] / Bsx: 7842: [id number] Implanted: by Dylan Story MD (Quantity not on file) Lead Heart [employer] 7842 / [id number] / Bsx: L311: [id number]/24/2 023 Implanted: by Dylan Story MD (Quantity not on file) Pacemaker Chest Wall [employer] L311 / [id number] / Advance Directives * Attempt Cardiopulmonary Resuscitation [...] full resusitation during periprocedureal period Care Teams Leadership Program Internship Relationship Specialty Start Date End Date Katia Stone PA [address] [place] [phone] PCP - General General Internal Medicine 11/10/18
--- OUTSIDE RECORDS SUMMARY | 2023-12-15 13:03 | XMS_ITS | Encounter Summary ---
Author Organization [facility] [place] [address] Care Team Providers Care Synthetic Staple Extruder Name Role Phone Katia Stone Primary Care Provider [phone] Encounter Details Date Type Department Care Team (Latest Contact Info) Description 11/06/2023 10:00 AM EDT - 11/06/2023 11:59 PM EDT Hospital Encounter [place] [phone] Discharge Disposition: Home Social History Tobacco Use [...] st Contact Info) Description 02/04/2024 10:00 AM [facility] Hospital Encounter [place] [address] Arrived documented as of this encounter Procedures Procedure Name Priority Date/Time Associated Diagnosis Comments PRO PM INTERROGATION REMOTE UP TO 90 DAYS Routine 09/11/2023 3:09 AM EDT documented in this encounter Results * Cardiac Device Check - Remote (09/11/2023 3:09 AM EDT) Anatomical Region Laterality Modality Other 09/11/2023 3:09 AM EDT Ivan Mar MD IMPLANTABLE CARDIAC DEVICE documented in this encounter Visit Diagnoses Not on filedocumented in this encounter Care Teams Synthetic Staple Extruder Relationship Specialty Start Date End Date Katia Stone PA [address] [place] [phone] PCP - General General Internal Medicine 11/10/18 documented as of this encounter
--- OUTSIDE RECORDS SUMMARY | 2023-12-15 13:03 | XMS_ITS | Encounter Summary ---
Author Organization [facility] Address [address] [place] [address] Care Team Providers Care Disability Program Navigator Name Role Phone Katia Stone PA-C Primary Care Provider [phone]- [phone] Reason for Referral * Follow Up (3 - 10 Business Days) - New Request Specialty Diagnoses / Procedures Referred By Contac t Referred To Contact Diagnoses Hyponatremia Pericardial effusion Heart block Acute on chronic diastolic congestive heart failure (HCC-CMS) Acute pericarditis, unspecified type Vini Mathis MD [address] [place] [phone] Katia Stone PA-C [facility] [address] [place] [address] Referral ID Status Reason Start Date Expiration Date Visits Requested Visits Authorized [id number] New Request Continuity of Care 05/27/2017 1 1 Question Answer Reason for Request: post hosp f/u visit Reason for Visit * Reason Comments Chest Pain Patient arrives as [place] pan from [facility] for pleuritic chest pain and new diagnosis CHF after pacemaker placement at [facility] two weeks ago. Dyspnea with exertion, breath sounds course crackles. Alert and oriented. Encounter Details Date Type Department Care Team (Late st Contact Info) Description 05/20/2017 23:34 EDT - 05/27/2017 14:[address] [facility] Cardiac/Telemetry Unit [address] [place] [address] Laly Kim MD [address] [phone] Akash Reyes MD [address] [place] [phone] Andres Luis MD [address] [place] [phone] Tony Rosenberg MD [address] [place] [phone] Seng Brody Sa, MD [address] [place] [phone] Hyponatremia (Primary Dx); Pericardial effusion; Heart block; [...] Acute on chronic diastolic congestive heart failure ([facility]-H[facility]) 05/01/2017 05/27/2017 Hospital Course David Mera is [...] amlodipine and chlorthalidone. ?? He presented to [facility] ED 05/20 with orthopnea and cough, and CT chest showed pericardial effusion. He was transferred to [facility] ED for pericardiocentesis. In the ED [...] Component Value Units Date/Time Respiratory Virus Detection [[id number]] Collected: 05/26/17 1157 Lab Status: Preliminary result Specimen: Nasopharynx Updated: 05/27/17 1425 Result No RSV, Influenza A, or Influenza B detected by PCR Result No Metapneumovirus detected by PCR. Result Delay in some virus(es) result(s), testing being repeated and/or confirmed. Anaerobe Culture/Smear (inc. aerobes), Fluid [[id number]] Collected: 05/23/17 0747 Lab Status: Preliminary result Specimen: FOSMIC from Pericardial Fluid Updated: 05/25/17 1146 Gram Smear Result Few Polys No bacteria seen Result No growth Fungus Culture/Smear, Other [[id number]] Collected: 05/23/17 0747 Lab Status: Preliminary result [...] 05/01/2017 Discharge Follow Up Appointments Scheduled with [facility] Upcoming Appointments Jun 04, 2017 16:00 EDT Post Hospital Visit with Tony Rosenberg MD [facility] Cardiology [facility] (--) [address] [facility] [address] Appointments Outside of [facility] We Will Schedule Follow-up appointments and procedures Amb Consult/Follow Up Primary Care Physician Reason for Request: post hosp f/u visit Authorizing Provider: Vini Mathis MD Additional Information: Cardiology follow up FriJune 04, 2017 at [address] Justin Rosenberg at the [facility]. You should be notified of appointment time. If you do not head by FriJune 01, please call [phone] to find out the time. Cardiology follow up on June 16, 2017 at 2:[address] Torres at the [facility] haspreviously scheduled. Clinic number [id number] Studies We Will Schedule Follow-up labs and [...] Vini Mathis MD Internal Medicine PGY-1 Pager: [phone] 05/27/2017 20:52 Associated attestation - Seng Brody Sa, MD - 05/30/2017 1206 EDT Attending Attestation: I saw and evaluated the patient 05/27. I discussed the case with the resident/CEMENTER MACHINE JOINER/fellow and agree with the findings and plan as documented above. Seng person Sa, MD Cardiac Electrophysiology documented in this encounter Discharge Instructions * Appointments* Coleen Yañez NP - 05/27/2017 10:25 EDT Cardiology follow up FriJune 04, 2017 at [address] Justin Rosenberg at the [facility]. You should be notified of appointment time. If you do not head by FriJune 01, please call [phone] to find out the time. Cardiology follow up on June 16, 2017 at 2:[address] Torres at the [facility] haspreviously scheduled. Clinic number [id number] * Discharge Instr - Other Orders* Melida [...] Care Everywhere. * HEART FAILURE: AVOIDING TRIGGERS (YEMENI) documented in this encounter Medications at Time [...] knees MSK: Normal bulk and tone. 5/5 scrap handler strength SKIN: No lesions, bruises, or rashes [...] initially hypertensive, but now normo-hypotensive. - Holding MEDICAL FILE CLERK lisinopril ?? Chronic diastolic heart failure: Volume [...] 05/26/17. I discussed the case with the resident/CEMENTER MACHINE JOINER/fellow and agree with the findings and plan [...] knees MSK: Normal bulk and tone. 5/5 scrap handler strength SKIN: No lesions, bruises, or rashes [...] initially hypertensive, but now normo-hypotensive. - Holding MEDICAL FILE CLERK lisinopril ?? Chronic diastolic heart failure: currently [...] knees MSK: Normal bulk and tone. 5/5 scrap handler strength SKIN: No lesions, bruises, or rashes [...] initially hypertensive, but now normo-hypotensive. - Holding MEDICAL FILE CLERK lisinopril ?? Chronic diastolic heart failure: currently [...] Landry M.D., PGY-1 Internal Medicine Resident Pager [phone] 05/24/2017 10:04 Attestation statement: Supervising Physician I [...] knees MSK: Normal bulk and tone. 5/5 scrap handler strength SKIN: No lesions, bruises, or rashes [...] initially hypertensive, but now normo-hypotensive. - Holding MEDICAL FILE CLERK lisinopril ?? Chronic diastolic heart failure: currently [...] Landry M.D., PGY-1 Internal Medicine Resident Pager [phone] 05/23/2017 9:11 Attestation statement: Supervising Physician. I [...] knees MSK: Normal bulk and tone. 5/5 scrap handler strength SKIN: No lesions, bruises, or rashes [...] initially hypertensive, but now normo-hypotensive. - Holding MEDICAL FILE CLERK lisinopril ?? Chronic diastolic heart failure: currently [...] Landry M.D., PGY-1 Internal Medicine Resident Pager [phone] 05/22/2017 8:50 Attestation statement: I saw and [...] Chart: Yes, previous copy on file @ [facility] DIRECTIVES FOR FINANCES: TRANSPORTATION: Transportation: Family CULTURAL, ORTHODOX and/or LANGUAGE factors affecting health care/discharge planning: [...] AID - [address] - [place], [place] - [address] [facility] [id number] [facility]) - [facility] [place] - [address] [facility] [address] [facility] [address] Home Health: Other: POST HOSPITAL TRANSITION PLAN: Plan d/c to his son, Catarina, house in [place] Desi Villatoro RN 05/21/2017 13:12 * Desi Villatoro RN - 05/21/2017 0908 EDT 05/21: Met with patient. Dr. Rosenberg is at the bedside. Plan will be pericardiocentesis and reposition of pacer lead. I will follow up with patient later today. Desi Villatoro RN [facility][id number] * Jayne Landry MD - 05/21/2017 0776 EDT Cardiology Progress note Service Date: 05/21/2017 [...] knees MSK: Normal bulk and tone. 5/5 scrap handler strength SKIN: No lesions, bruises, or rashes [...] will hold lisinopril for now. - Holding MEDICAL FILE CLERK lisinopril ?? Chronic diastolic heart failure: currently volume overloaded. Needs diuresis after resolution of pericardial effusion. - Holding Lasix/chlorthalidone in setting of pericardial effusion - Strict I&O - 1.2 L fluid restriction as above - Daily weights - Daily BUN, Cr VTE Prophylaxis Held pending pericardiocentesis Discharge Plan Uncertain at this time Jayne Landry M.D., PGY-1 Internal Medicine Resident Pager [phone] 05/21/2017 8:01 * Ester Yanes MD - 05/21/2017 0604 EDT PATIENT CONSENT TO CARDIOVASCULAR CATHETERIZATION OR [...] aft er the procedure. Ester Yanes MD Subway Train Operator PGY-5 05/20/2017 23:30 documented in this encounter [...] smoker, 1-2 beers 1-2x/week, lives alone in [place] Allergies: Reviewed No Known Allergies Exam: General [...] will hold lisinopril for now. - Holding MEDICAL FILE CLERK lisinopril Chronic diastolic heart failure: with some [...] outpatient, avoid thiazide diuretics Vladimir Crowe MD [facility] Transplant Cylinder Steamer Night Cleaner of Transplant Programs 05/25/2017 11:46 * Vladimir [...] the assessment and plan. Vladimir Crowe MD [facility] Transplant Cylinder Steamer Night Cleaner of Transplant Programs 05/24/2017 12:32 * Elliot [...] TIME. PT IN ER ROOM 8, ON NEPHROLOGY NURSE, NIBP, AND SPO2, ASSESSMENT NOTED, * Tony Navarro - 05/20/2017 2247 EDT Blood drawn via saline lock per protocol, tiger tube(s) sent to lab per order. * Laly Kim MD - 05/20/2017 2224 EDT DOS: 05/20/2017 Chief Complaint Patient presents with ??? Chest Pain Patient arrives as transfer from [facility] for pleuritic chest pain and new diagnosis CHF after pacemaker placement at [facility] two weeks ago. Dyspnea with exertion, breath sounds course crackles. Alert and oriented. HPI HPI Comments: I, Deana Bingham, am scribing for Laly Kim, * while he/she is personallyperforming the service. Deana Bingham 05/20/2017 22:25 David Mera is a 66 y.o. male with a history of heart block AV third degree, HTN, acute on chronic CHF, who presents as a transfer from [place] with pericardial effusion. Pt had pacemaker placed [...] appears to be a good tracing. Attending shoe packer not available for acute interpretation. Radiology orders: [...] for problems Not Given Final Accession number [id number] Final CREATININE, URINE RANDOM SODIUM, URINE RANDOM [...] bolus. Evaluated in the ED by the cashier assistant. ASSESSMENT AND PLAN Final diagnoses: Hyponatremia Pericardial effusion DISPOSITION: Admitted Discussed case with cardiology resident/fellow (). Not evaluated by admitting attending in ED. Admitted to telemetry for further evaluation and definitive management. Condition on admission: Serious.Pain level at time of admission: 0 (). PCP: Katia Mccallum [facility] Number of Diagnoses or Management Options Hyponatremia: [...] Care - Sigrid Gordon RN - 05/25/2017 0592 EDT Problem: Daily Care Plan Goals Goal: [...] Care - Cici Tapia RN - 05/24/2017 8051 EDT Problem: Daily Care Plan Goals Goal: [...] on chronic diastolic congestive heart failure (CMS-HCC) ([facility]) Acute pericarditis, unspecified type Ordered: 05/27/2017 documented [...] 8:40 EDT) 06/02/2017 8:40 EDT Scan 2 Greek Professor PROCEDURE/MINOR VELMA GICAL ORDERABLES * ECG REPORT - SCANNED (06/01/2017 12:46 EDT) 06/01/2017 12:4 6 EDT Scan 2 Greek Professor PROCEDURE/MINOR VELMA GICAL ORDERABLES * ECG REPORT - SCANNED (05/30/2017 11:59 EDT) 05/30/2017 11:5 9 EDT Scan 2 Greek Professor PROCEDURE/MINOR VELMA GICAL ORDERABLES * ECG REPORT - SCANNED (05/30/2017 11:17 EDT) 05/30/2017 11:1 7 EDT Scan 2 Greek Professor PROCEDURE/MINOR VELMA GICAL ORDERABLES * ECG REPORT - SCANNED (05/30/2017 11:17 EDT) 05/30/2017 11:1 7 EDT Scan 2 Greek Professor PROCEDURE/MINOR VELMA GICAL ORDERABLES * ECG REPORT - SCANNED (05/28/2017 10:02 EDT) 05/28/2017 10:0 2 EDT Scan 2 Greek Professor PROCEDURE/MINOR VELMA GICAL ORDERABLES * ECG REPORT - SCANNED (05/27/2017 13:22 EDT) 05/27/2017 13:2 2 EDT Scan 2 Greek Professor PROCEDURE/MINOR VELMA GICAL ORDERABLES * EKG 12-LEAD (05/27/2017 7:37 EDT) 05/27/2017 7:37 EDT Narrative [facility] EKG - 06/01/2017 12:41 EDT ? [facility] ? Test Date: ?2017-05-27 Pat Name: ? DAVID MERA ?Department: ?? JAME Chao ? Room: ? MW531 Gender: ? 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 [id number] : ?1950 ? Requested By: PRADIP MONET Order Number: [id number] ? Martha OAKES: ?? PIERRE RUBIO MD ? Measurements Intervals ?[place] ? Rate: ? 69 ? P: ?23 [place]: ? 175 ?QRS: ?-58 QRSD: ? 193 [...] MD - 06/01/[address] [facility] Test Date: 2017-05-27 Pat Name: DAVID HULLEY Department: [place] [address] Room: [facility] Gender: M Pest Control Operator: [id number] : 1950 Requested By: PRADIP MONET Order Number: [id number] Reading MD: PIERRE RUBIO MD Measurements Intervals [place] Rate: 69 P: 23 [place]: 175 QRS: -58 QRSD: 193 T: 189 QT: 528 QTc: 568 Interpretive Statements SINUS RHYTHM WITH ATRIAL TRACKING and VENTRICULAR PACING Compared to ECG 05/26/2017 07:29:50 No significant changes I reviewed the tracing and have either agreed or edited the findings inthis report. Electronically Signed On 06-01-17 12:41:22 EDT by PIERRE YEBOAH. Maria Antonia Zimmerman MD CARDIAC ECG ORDERABL ES Performing Organization Address [facility] [[email or web address]] de Phone Number [facility] EKG * (ABNORMAL) ELECTROLYTES (05/27/2017 5:57 EDT) Sodium 129(L) 136 - 145 mEq/L 05/27/2017 6:41 EDT [facility] Potassium 3.9 3.5 - 5.0 mEq/L 05/27/2017 6:41 EDT [facility] Chloride 87(L) 96 - 110 mEq/L 05/27/2017 6:41 EDT [facility] CO2 33(H) 22 - 32 mEq/L 05/27/2017 6:41 EDT [facility] Blood specimen (specimen) BLOOD SPECIMEN / Unknown 05/27/2017 5:57 EDT 05/27/2017 6:14 EDT Jayne Pozo MD CHEMISTRY & BLOOD GA S ORDERABLES Performing Organization Address [facility] [[email or web address]] de Phone Number [facility] [address] [place] [address] * BUN (05/27/2017 5:57 EDT) BUN 13 10 - 26 mg/dl 05/27/2017 6:41 EDT [facility] Blood specimen (specimen) BLOOD SPECIMEN / Unknown 05/27/2017 5:57 EDT 05/27/2017 6:14 EDT Jayne Pozo MD CHEMISTRY & BLOOD GA S ORDERABLES Performing Organization Address [facility] de Phone Number [facility] [address] [place] [address] * MAGNESIUM (05/27/2017 5:57 EDT) Magnesium 1.9 1.7 - 2.8 mg/dl 05/27/2017 6:41 EDT [facility] Blood specimen (specimen) BLOOD SPECIMEN / Unknown 05/27/2017 5:57 EDT 05/27/2017 6:14 EDT Jayne Pozo MD CHEMISTRY & BLOOD GA S ORDERABLES Performing Organization Address [facility] Co de Phone Number [facility] [address] [place] [address] * (ABNORMAL) CREATININE (05/27/2017 5:57 EDT) Creatinine 0.63(L) 0.66 - 1.25 mg/dl 05/27/2017 6:41 EDT [facility] GFR, Calculated 103 >60 ml/min/1.7 3m2 05/27/2017 6:41 EDT [facility] Comment: eGFR calculated using CKD-EPI equation for non Americans. Multiply eGFR by 1.16 for Americans. Blood specimen (specimen) BLOOD SPECIMEN / Unknown 05/27/2017 5:57 EDT 05/27/2017 6:14 EDT Jayne Pozo MD CHEMISTRY & BLOOD GA S ORDERABLES Performing Organization Address [facility] Co de Phone Number [facility] [address] [place] [address] * (ABNORMAL) HEMAGRAM (05/27/2017 5:57 EDT) WBC 6.74 4.0 - 10.4 K/cmm 05/27/2017 6:28 [facility] RBC 3.43(L) 4.36 - 5.78 M/cmm 05/27/2017 6:28 [facility] Hemoglobin 11.3(L) 13.8 - 17.3 gm/dl 05/27/2017 6:28 [facility] HCT 32.2(L) 39.5 - 50.2 % 05/27/2017 6:28 [facility] MCV 94 81 - 95 fl 05/27/2017 6:28 [facility] MCH 32.9 27.6 - 33.0 pg 05/27/2017 6:28 [facility] MCHC 35.1 32.8 - 36.4 gm/dl 05/27/2017 6:28 [facility] RDW-CV 11.3 <14.2 % 05/27/2017 6:28 EDT [facility] RDW-SD 38.4 <46.0 fl 05/27/2017 6:28 EDT [facility] PLT 308 141 - 377 K/cmm 05/27/2017 6:28 EDT [facility] MPV 10.4 9.5 - 12.7 fl 05/27/2017 6:28 EDT [facility] Blood specimen (specimen) BLOOD SPECIMEN / Unknown 05/27/2017 5:57 EDT 05/27/2017 6:14 EDT Jayne Pozo MD HEMATOLOGY & PF4 ORD ERABLES Performing Organization Address [facility] Co de Phone Number [facility] [address] [place] [address] * (ABNORMAL) NT PRO BNP (05/26/2017 17:55 EDT) NT Pro BNP 2,710(H) <300 pg/ml 05/26/2017 18:55 EDT [facility] Comment: Slight hemolysis Results [...] GAS ORDERABLES Performing Organization Address [facility] Co de Phone Number [facility] [address] [place] [address] * (ABNORMAL) ELECTROLYTES (05/26/2017 17:55 EDT) Sodium 129(L) 136 - 145 mEq/L 05/26/2017 18:44 EDT [facility] Comment:Slight hemolysis Potassium 4.0 3.5 - 5.0 mEq/L 05/26/2017 18:44 EDT [facility] Comment: Slight hemolysis Hemolysis may elevate potassium result. Chloride 84(L) 96 - 110 mEq/L 05/26/2017 18:44 EDT [facility] Comment:Slight hemolysis CO2 35(H) 22 - 32 mEq/L 05/26/2017 18:44 EDT [facility] Comment:Slight hemolysis Blood specimen (specimen) BLOOD SPECIMEN / Unknown 05/26/2017 17:55 EDT 05/26/2017 18:18 EDT Jayne Pozo MD CHEMISTRY & BLOOD GA S ORDERABLES Performing Organization Address [facility] Co de Phone Number [facility] [address] [place] [address] * INPATIENT ADD-ON (05/26/2017 15:20 EDT) Tests to be added BNP 05/26/2017 15:19 EDT [facility] Number for problems [id number] 05/26/2017 15:32 EDT [facility] Accession number CALLED M5 WITH INABILITY TO PERFORM ADD ON DUE TO NO SUITABLE SAMPLE [id number] 05/26/2017 15:32 EDT [facility] TOPOGRAPHY UNKNOWN / Unknown 05/26/2017 15:20 EDT 05/26/2017 15:31 EDT Vini Mathis MD HEMATOLOGY & PF4 OR DERABLES Performing Organization Address City/[facility] Co de Phone Number [facility] [address] [place] [address] * LEGIONELLA ANTIGEN DETECTION, URINE (05/26/2017 14:04 EDT) Result No Legionella pneumophila serogroup 1 antigen detected. 05/26/2017 15:30 EDT [facility] Specimen of unknown material (specimen) URINE / Unknown 05/26/2017 14:04 EDT 05/26/2017 14:42 EDT Comment:Clean catch specimen Сергей Damico MD MICROBIOLOGY - GENER AL ORDERABLES Performing Organization Address City/[facility]/ZIP Co de Phone Number [facility] [address] [place] [address] * STREPTOCOCCUS PNEUMONIAE ANTIGEN, URINE (05/26/2017 14:04 EDT) Result No Strep pneumoniae antigen detected. 05/26/2017 15:29 EDT [facility] Specimen of unknown material (specimen) URINE / Unknown 05/26/2017 14:04 EDT 05/26/2017 14:42 EDT Comment:Clean catch specimen Сергей Damico MD MICROBIOLOGY - GENER AL ORDERABLES Performing Organization Address [facility] Co de Phone Number [facility] [address] [place] [address] * ECG REPORT - SCANNED (05/26/2017 12:53 EDT) 05/26/2017 12:5 3 EDT Scan 2 Greek Professor PROCEDURE/MINOR VELMA GICAL ORDERABLES * CHEST PA [...] findings. Сергей Damico MD [facility] ORDERABLES * BACTERIAL CULTURE/SMEAR, RESPIRATORY (05/26/2017 12:14 EDT) Gram Smear Result Mod Polys 05/26/2017 14:30 EDT [facility] Gram Smear Result Mod Squamous epithelial cells 05/26/2017 14:30 EDT [facility] Gram Smear Result Mod Mixed gram positive and gram negative organisms 05/26/2017 14:30 EDT [facility] Gram Smear Result Smear suggests contamination with saliva. ??Please submit additional specimen if clinically indicated. 05/26/2017 14:30 EDT [facility] Result See gram smear results. 05/26/2017 14:30 EDT [facility] Result Credit Issued 05/26/2017 14:30 EDT [facility] Specimen of unknown material (specimen) SPUTUM / Unknown 05/26/2017 12:14 EDT 05/26/2017 13:50 EDT Сергей Damico MD MICROBIOLOGY - GENER AL ORDERABLES Performing Organization Address [facility] Co de Phone Number [facility] [address] [place] [address] * RESPIRATORY VIRUS DETECTION (05/26/2017 11:57 EDT) Result No RSV, Influenza A, or Influenza B detected by PCR 05/28/2017 14:18 EDT [facility] Result No Metapneumovirus detected by PCR. 05/28/2017 14:18 EDT [facility] Result No Parainfluenza Virus Type 1,2 or 3 detected by PCR. This assay may have decrease sensitivity for Parainfluenza Virus Type 3. 05/28/2017 14:18 EDT [facility] NASOPHARYNGEAL STRUCTURE / Unknown 05/26/2017 11:57 EDT 05/26/2017 12:19 EDT Сергей Damico MD MICROBIOLOGY - GENER AL ORDERABLES Performing Organization Address City/[facility]/ZIP Co de Phone Number [facility] [address] [place] [address] * ECHOCARDIOGRAM LIMITED (05/26/2017 11:16 EDT) Anatomical Region Laterality Modality Other 05/26/2017 11:1 6 EDT Narrative 05/26/2017 11:25 EDT *Interpreting Group:* *[facility]* [address] [place] [address] Date of study: 05/26/2017 Transthoracic Echocardiography M-mode, [...] Rosenberg MD ORDERING ?Tony Rosenberg MD PERFORMING ??[facility], REFERRING ?? Katia Mccallum *PROCEDURE DATA* Procedure information: ??The patient was identified by two identifiers. This study was interpreted by [facility]. Pertinent images and [...] Andrade MD - 05/26/2017 *Interpreting Group:* *[facility]* [address] [place] [address] Date of study: 05/26/2017 Transthoracic Echocardiography M-mode, [...] identifiers. This study was interpreted by [facility]. Pertinent images and [...] 12-LEAD (05/26/2017 7:29 EDT) 05/26/2017 7:[address] [facility] EKG - 05/27/2017 13:18 EDT ? [facility] ? Test Date: ?2017-05-26 Pat Name: ? DAVID MERA ?Department: ?? [address] ? Room: ? MW531 Gender: ? 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 [id number] : ?1950 ? Requested By: PRADIP MONET Order Number: [id number] ? Reading MD: ?? PETER ROLF MD ? Measurements Intervals ?[place] ? Rate: ? 73 ? P: ? [place]: ? 0 ?QRS: ?-45 QRSD: ? 192 [...] Laly Dela Cruz MD - 05/27/[address] [facility] Test Date: 2017-05-26 Pat Name: DAVID MERA Department: [place] [address] Room: [facility] Gender: M Pest Control Operator: [id number] : 1950 Requested By: PRAIDP MONET Order Number: [id number] Reading MD: LALY DELA CRUZ MD Measurements Intervals [place] Rate: 73 P: [place]: 0 QRS: -45 QRSD: 192 T: 176 [...] Antonia Zimmerman MD CARDIAC ECG ORDERABL ES [facility] EKG * (ABNORMAL) ELECTROLYTES (05/26/2017 5:57 EDT) Sodium 128(L) 136 - 145 mEq/L 05/26/2017 6:54 EDT [facility] Potassium 3.7 3.5 - 5.0 mEq/L 05/26/2017 6:54 EDT [facility] Chloride 85(L) 96 - 110 mEq/L 05/26/2017 6:54 EDT [facility] CO2 35(H) 22 - 32 mEq/L 05/26/2017 6:54 EDT [facility] Blood specimen (specimen) BLOOD SPECIMEN / Unknown 05/26/2017 5:57 EDT 05/26/2017 6:26 EDT Jayne Pozo MD CHEMISTRY & BLOOD GA S ORDERABLES Performing Organization Address City/[facility]/ZIP Co de Phone Number [facility] [address] [place] [address] * (ABNORMAL) BUN (05/26/2017 5:57 EDT) BUN 9(L) 10 - 26 mg/dl 05/26/2017 6:54 EDT [facility] Blood specimen (specimen) BLOOD SPECIMEN / Unknown 05/26/2017 5:57 EDT 05/26/2017 6:26 EDT Jayne Pozo MD CHEMISTRY & BLOOD GA S ORDERABLES Performing Organization Address City/[facility]/ZIP Co de Phone Number [facility] [address] [place] [address] * MAGNESIUM (05/26/2017 5:57 EDT) Magnesium 1.8 1.7 - 2.8 mg/dl 05/26/2017 6:54 EDT [facility] Blood specimen (specimen) BLOOD SPECIMEN / Unknown 05/26/2017 5:57 EDT 05/26/2017 6:26 EDT Jayne Pozo MD CHEMISTRY & BLOOD GA S ORDERABLES Performing Organization Address City/[facility] Co de Phone Number [facility] [address] [place] [address] * (ABNORMAL) CREATININE (05/26/2017 5:57 EDT) Creatinine 0.53(L) 0.66 - 1.25 mg/dl 05/26/2017 6:54 EDT [facility] GFR, Calculated 110 >60 ml/min/1.7 3m2 05/26/2017 6:54 [facility] Comment: eGFR calculated using CKD-EPI equation for non Americans. Multiply eGFR by 1.16 for Americans. Blood specimen (specimen) BLOOD SPECIMEN / Unknown 05/26/2017 5:57 EDT 05/26/2017 6:26 EDT Jayne Pozo MD CHEMISTRY & BLOOD GA S ORDERABLES [facility] [address] [place] [address] * (ABNORMAL) HEMAGRAM (05/26/2017 5:57 EDT) WBC 7.06 4.0 - 10.4 K/cmm 05/26/2017 6:33 [facility] RBC 3.20(L) 4.36 - 5.78 M/cmm 05/26/2017 6:33 [facility] Hemoglobin 10.7(L) 13.8 - 17.3 gm/dl 05/26/2017 6:33 [facility] HCT 30.0(L) 39.5 - 50.2 % 05/26/2017 6:33 [facility] MCV 94 81 - 95 fl 05/26/2017 6:33 [facility] MCH 33.4(H) 27.6 - 33.0 pg 05/26/2017 6:33 [facility] MCHC 35.7 32.8 - 36.4 gm/dl 05/26/2017 6:33 [facility] RDW-CV 11.3 <14.2 % 05/26/2017 6:33 [facility] RDW-SD 38.4 <46.0 fl 05/26/2017 6:33 [facility] PLT 306 141 - 377 K/cmm 05/26/2017 6:33 [facility] MPV 10.3 9.5 - 12.7 fl 05/26/2017 6:33 [facility] Blood specimen (specimen) BLOOD SPECIMEN / Unknown 05/26/2017 5:57 EDT 05/26/2017 6:26 EDT Jyane Pozo MD HEMATOLOGY & PF4 ORD ERABLES Performing Organization Address [facility] Co de Phone Number [facility] [address] [place] [address] * (ABNORMAL) ELECTROLYTES (05/25/2017 17:58 EDT) Sodium 130(L) 136 - 145 mEq/L 05/25/2017 18:29 EDT [facility] Potassium 3.6 3.5 - 5.0 mEq/L 05/25/2017 18:29 EDT [facility] Chloride 83(L) 96 - 110 mEq/L 05/25/2017 18:29 EDT [facility] CO2 36(H) 22 - 32 mEq/L 05/25/2017 18:29 EDT [facility] Blood specimen (specimen) BLOOD SPECIMEN / Unknown 05/25/2017 17:58 EDT 05/25/2017 18:03 EDT Jayne Pozo MD CHEMISTRY & BLOOD GA S ORDERABLES Performing Organization Address [facility] Co de Phone Number [facility] [address] [place] [address] * OSMOLALITY, URINE (05/25/2017 14:29 EDT) Osmolality, Ur 284 150 - 1,150 mos/kg 05/25/2017 15:18 EDT [facility] Urine specimen (specimen) URINE / Unknown 05/25/2017 14:29 EDT 05/25/2017 14:37 EDT Luciano Christian MD URINALYSIS ORDERABLE S Performing Organization Address [facility] Co de Phone Number [facility] [address] [place] [address] * URINE ELECTROLYTES (05/25/2017 14:29 EDT) Chloride, Ur 41 mEq/L 05/25/2017 15:10 EDT [facility] Comment: Reference Range: No reference range available Potassium, Urine 31.1 mEq/L 05/25/2017 15:10 EDT [facility] Sodium, Ur 81.0 mEq/L 05/25/2017 15:10 EDT [facility] Urine specimen (specimen) URINE / Unknown 05/25/2017 14:29 EDT 05/25/2017 14:37 EDT Luciano Christian MD URINALYSIS ORDERABLE S [facility] [address] [place] [address] * EKG 12-LEAD (05/25/2017 7:40 EDT) 05/25/2017 7:40 EDT Narrative [facility] EKG - 06/02/2017 8:35 EDT ? [facility] ? Test Date: ?2017-05-25 Pat Name: ? DAVID MERA ?Department: ?? [address] ? Room: ? MW531 Gender: ? 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 [id number] : ?1950 ? Requested By: PRADIP MONET Order Number: [id number] ? Reading MD: ?? SENG PERSON SA, MD ? Measurements Intervals ?[place] ? Rate: ? 76 ? P: ?35 [place]: ? 218 ?QRS: ?-47 QRSD: ? 188 [...] Seng Brody Sa, MD - 06/02/[address] [facility] Test Date: 2017-05-25 Pat Name: DAVID MERA Department: JAME Chao Room: [facility] Gender: M Pest Control Operator: [id number] : 1950 Requested By: PRADIP MONET Order Number: [id number] Reading MD: SENG ROBLEDO Measurements Intervals [place] Rate: 76 P: 35 [place]: 218 QRS: -47 QRSD: 188 T: 193 [...] CARDIAC ECG ORDERABL ES Performing Organization Address City/[facility]/ZIP Co de Phone Number [facility] E[facility] * (ABNORMAL) ELECTROLYTES (05/25/2017 5:59 EDT) Sodium 127(L) 136 - 145 mEq/L 05/25/2017 7:02 EDT [facility] Potassium 3.7 3.5 - 5.0 mEq/L 05/25/2017 7:02 EDT [facility] Chloride 85(L) 96 - 110 mEq/L 05/25/2017 7:02 EDT [facility] CO2 36(H) 22 - 32 mEq/L 05/25/2017 7:02 EDT [facility] Blood specimen (specimen) BLOOD SPECIMEN / Unknown 05/25/2017 5:59 EDT 05/25/2017 6:23 EDT Jayne Pozo MD CHEMISTRY & BLOOD GA S ORDERABLES [facility] [address] [place] [address] * (ABNORMAL) BUN (05/25/2017 5:59 EDT) BUN 9(L) 10 - 26 mg/dl 05/25/2017 7:02 EDT [facility] Blood specimen (specimen) BLOOD SPECIMEN / Unknown 05/25/2017 5:59 EDT 05/25/2017 6:23 EDT Jayne Pozo MD CHEMISTRY & BLOOD GA S ORDERABLES [facility] [address] [place] [address] * MAGNESIUM (05/25/2017 5:59 EDT) Magnesium 1.7 1.7 - 2.8 mg/dl 05/25/2017 7:02 EDT [facility] Blood specimen (specimen) BLOOD SPECIMEN / Unknown 05/25/2017 5:59 EDT 05/25/2017 6:23 EDT Jayne Pozo MD CHEMISTRY & BLOOD GA S ORDERABLES Performing Organization Address [facility] Co de Phone Number [facility] [address] [place] [address] * (ABNORMAL) CREATININE (05/25/2017 5:59 EDT) Creatinine 0.54(L) 0.66 - 1.25 mg/dl 05/25/2017 7:02 EDT [facility] GFR, Calculated 109 >60 ml/min/1.7 3m2 05/25/2017 7:02 EDT [facility] Comment: eGFR calculated using CKD-EPI equation for non Americans. Multiply eGFR by 1.16 for Americans. Blood specimen (specimen) BLOOD SPECIMEN / Unknown 05/25/2017 5:59 EDT 05/25/2017 6:23 EDT Jayne Pozo MD CHEMISTRY & BLOOD GA S ORDERABLES Performing Organization Address [facility] Co de Phone Number [facility] [address] [place] [address] * (ABNORMAL) HEMAGRAM (05/25/2017 5:59 EDT) WBC 6.99 4.0 - 10.4 K/cmm 05/25/2017 6:36 [facility] RBC 3.16(L) 4.36 - 5.78 M/cmm 05/25/2017 6:36 [facility] Hemoglobin 10.5(L) 13.8 - 17.3 gm/dl 05/25/2017 6:36 [facility] HCT 29.5(L) 39.5 - 50.2 % 05/25/2017 6:36 [facility] MCV 93 81 - 95 fl 05/25/2017 6:36 [facility] MCH 33.2(H) 27.6 - 33.0 pg 05/25/2017 6:36 [facility] MCHC 35.6 32.8 - 36.4 gm/dl 05/25/2017 6:36 [facility] RDW-CV 11.2 <14.2 % 05/25/2017 6:36 [facility] RDW-SD 38.8 <46.0 fl 05/25/2017 6:36 [facility] PLT 290 141 - 377 K/cmm 05/25/2017 6:36 [facility] MPV 10.7 9.5 - 12.7 fl 05/25/2017 6:36 [facility] Blood specimen (specimen) BLOOD SPECIMEN / Unknown 05/25/2017 5:59 EDT 05/25/2017 6:23 EDT Jayne Pozo MD HEMATOLOGY & PF4 ORD ERABLES [facility] [address] [place] [address] * (ABNORMAL) ELECTROLYTES (05/24/2017 18:02 EDT) Sodium 127(L) 136 - 145 mEq/L 05/24/2017 18:40 [facility] Potassium 3.7 3.5 - 5.0 mEq/L 05/24/2017 18:40 [facility] Chloride 80(L) 96 - 110 mEq/L 05/24/2017 18:40 EDT [facility] CO2 37(H) 22 - 32 mEq/L 05/24/2017 18:48 EDT [facility] Blood specimen (specimen) BLOOD SPECIMEN / Unknown 05/24/2017 18:02 EDT 05/24/2017 18:16 EDT Jayne Pozo MD CHEMISTRY & BLOOD GA S ORDERABLES [facility] [address] [place] [address] * EKG 12-LEAD (05/24/2017 7:22 EDT) 05/24/2017 7:22 EDT Narrative [facility] EKG - 05/28/2017 9:56 EDT ? [facility] ? Test Date: ?2017-05-24 Pat Name: ? DAVID MERA ?Department: ?? [facility] ? Room: ? MW531 Gender: ? 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 [id number] : ?1950 ? Requested By: PRADIP MONET Order Number: [id number] ? Martha OAKES: ?? ERVIN WILHELM MD ? Measurements Intervals ?[place] ? Rate: ? 103 ?P: ?-19 [place]: ? 232 ?QRS: ?-39 QRSD: ? 192 [...] MD - 05/28/[address] [facility] Test Date: 2017-05-24 Pat Name: DAVID MERA Department: [facility] [address] Room: [facility] Gender: M Pest Control Operator: [id number] : 1950 Requested By: PRADIP MONET Order Number: [id number] Reading MD: ERVIN WILHELM MD Measurements Intervals [place] Rate: 103 P: -19 [place]: 232 QRS: -39 QRSD: 192 T: 168 QT: 412 QTc: 542 Interpretive Statements ELECTRONIC VENTRICULAR PACEMAKER Compared to ECG 05/23/2017 07:20:54 No significant changes I reviewed the tracing and have either agreed or edited the findings inthis report. Electronically Signed On 05-28-17 09:56:53 EDT by ERVIN MARCH. Maria Antonia Zimmerman MD CARDIAC ECG ORDERABL ES Performing Organization Address [facility] Co de Phone Number [facility] E[facility] * (ABNORMAL) ELECTROLYTES (05/24/2017 5:51 EDT) Sodium 128(L) 136 - 145 mEq/L 05/24/2017 6:56 EDT [facility] Potassium 3.9 3.5 - 5.0 mEq/L 05/24/2017 6:56 EDT [facility] Chloride 83(L) 96 - 110 mEq/L 05/24/2017 6:56 EDT [facility] CO2 36(H) 22 - 32 mEq/L 05/24/2017 7:10 EDT [facility] Blood specimen (specimen) BLOOD SPECIMEN / Unknown 05/24/2017 5:51 EDT 05/24/2017 6:19 EDT Jayne Pozo MD CHEMISTRY & BLOOD GA S ORDERABLES Performing Organization Address [facility] de Phone Number [facility] [address] [place] [address] * (ABNORMAL) BUN (05/24/2017 5:51 EDT) BUN 9(L) 10 - 26 mg/dl 05/24/2017 6:56 EDT [facility] Blood specimen (specimen) BLOOD SPECIMEN / Unknown 05/24/2017 5:51 EDT 05/24/2017 6:19 EDT Jayne Pozo MD CHEMISTRY & BLOOD GA S ORDERABLES Performing Organization Address [email or web address] de Phone Number [facility] [address] [place] [address] * MAGNESIUM (05/24/2017 5:51 EDT) Magnesium 1.7 1.7 - 2.8 mg/dl 05/24/2017 6:56 EDT [facility] Blood specimen (specimen) BLOOD SPECIMEN / Unknown 05/24/2017 5:51 EDT 05/24/2017 6:19 EDT Jayne Pozo MD CHEMISTRY & BLOOD GA S ORDERABLES [facility] [address] [place] [address] * (ABNORMAL) CREATININE (05/24/2017 5:51 EDT) Creatinine 0.59(L) 0.66 - 1.25 mg/dl 05/24/2017 6:56 EDT [facility] GFR, Calculated 105 >60 ml/min/1.7 3m2 05/24/2017 6:56 EDT [facility] Comment: eGFR calculated using CKD-EPI equation for non Americans. Multiply eGFR by 1.16 for Americans. Blood specimen (specimen) BLOOD SPECIMEN / Unknown 05/24/2017 5:51 EDT 05/24/2017 6:19 EDT Jayne Pozo MD CHEMISTRY & BLOOD GA S ORDERABLES Performing Organization Address City/[facility]/ZIP Co de Phone Number [facility] [address] [place] [address] * (ABNORMAL) HEMAGRAM (05/24/2017 5:51 EDT) WBC 7.61 4.0 - 10.4 K/cmm 05/24/2017 6:30 EDT [facility] RBC 3.35(L) 4.36 - 5.78 M/cmm 05/24/2017 6:30 EDT [facility] Hemoglobin 11.0(L) 13.8 - 17.3 gm/dl 05/24/2017 6:30 EDT [facility] HCT 31.4(L) 39.5 - 50.2 % 05/24/2017 6:30 EDT [facility] MCV 94 81 - 95 fl 05/24/2017 6:30 EDT [facility] MCH 32.8 27.6 - 33.0 pg 05/24/2017 6:30 EDT [facility] MCHC 35.0 32.8 - 36.4 gm/dl 05/24/2017 6:30 EDT [facility] RDW-CV 11.4 <14.2 % 05/24/2017 6:30 T [facility] RDW-SD 39.0 <46.0 fl 05/24/2017 6:30 EDT [facility] PLT 273 141 - 377 K/cmm 05/24/2017 6:30 T [facility] MPV 10.9 9.5 - 12.7 fl 05/24/2017 6:30 EDT [facility] Blood specimen (specimen) BLOOD SPECIMEN / Unknown 05/24/2017 5:51 EDT 05/24/2017 6:19 EDT Jayne Pozo MD HEMATOLOGY & PF4 ORD ERABLES [facility] [address] [place] [address] * (ABNORMAL) ELECTROLYTES (05/23/2017 21:40 EDT) Sodium 128(L) 136 - 145 mEq/L 05/23/2017 22:23 EDT [facility] Potassium 3.6 3.5 - 5.0 mEq/L 05/23/2017 22:23 EDT [facility] Chloride 81(L) 96 - 110 mEq/L 05/23/2017 22:23 EDT [facility] CO2 38(H) 22 - 32 mEq/L 05/23/2017 22:56 EDT [facility] Blood specimen (specimen) BLOOD SPECIMEN / Unknown 05/23/2017 21:40 EDT 05/23/2017 21:45 EDT Jayne Pozo MD CHEMISTRY & BLOOD GA S ORDERABLES Performing Organization Address City/[facility] Co de Phone Number [facility] [address] [place] [address] * ECG REPORT - SCANNED (05/23/2017 15:08 EDT) 05/23/2017 15:0 8 EDT Scan 2 Greek Professor PROCEDURE/MINOR VELMA GICAL ORDERABLES * (ABNORMAL) ELECTROLYTES (05/23/2017 12:16 EDT) Sodium 126(L) 136 - 145 mEq/L 05/23/2017 12:55 EDT [facility] Potassium 3.7 3.5 - 5.0 mEq/L 05/23/2017 12:55 EDT [facility] Chloride 81(L) 96 - 110 mEq/L 05/23/2017 12:55 EDT [facility] CO2 36(H) 22 - 32 mEq/L 05/23/2017 12:55 EDT [facility] Blood specimen (specimen) BLOOD SPECIMEN / Unknown 05/23/2017 12:16 EDT 05/23/2017 12:26 EDT Jayne Pozo MD CHEMISTRY & BLOOD GA S ORDERABLES Performing Organization Address [facility] Co de Phone Number [facility] [address] [place] [address] * ECG REPORT - SCANNED (05/23/2017 11:51 EDT) 05/23/2017 11:5 1 EDT Scan 2 Greek Professor PROCEDURE/MINOR VELMA GICAL ORDERABLES * ECHOCARDIOGRAM LIMITED (05/23/2017 10:59 EDT) Anatomical Region Laterality Modality Other 05/23/2017 10:5 9 EDT Narrative 05/23/2017 11:19 EDT *Interpreting Group:* *[facility]* [address] [place] [address] Date of study: 05/23/2017 Transthoracic Echocardiography M-mode, [...] ?Akash Reyes MD ATTENDING ?Tony Rosenberg MD MEDICAL STAFF COORDINATOR ??Hali Del Real JUSTINO PERFORMING ?? Uvc, ORDERING ? Jayne Landry REFERRING ?Xena Katiacarrington Rodas *PROCEDURE DATA* Procedure information: ??This study was interpreted by [facility]. Pertinent images and digital data are archived for permanent storage and are available for subsequent review. Study status: ??Routine. Transthoracic echocardiography. ??M-mode, limited 2D, limited spectral Doppler, and color Doppler. A Transthoracic Echocardiogram was performed. Scanning was performed from the parasternal, apical, and subcostal acoustic windows. Images were obtained using an [id number] 10 cardiac ultrasound machine. Image quality was [...] Andrade MD - 05/23/2017 *Interpreting Group:* *[facility]* [address] [place] [address] Date of study: 05/23/2017 Transthoracic Echocardiography M-mode, [...] Akash Reyes MD ATTENDING Tony Rosenberg MD MEDICAL STAFF COORDINATOR Hali Del Real, [facility] PERFORMING [facility], Ip ORDERING Jayne Landry Katelyn Doran *PROCEDURE DATA* Procedure information: This study was interpreted by [facility]. Pertinent images and [...] EDT) 05/23/2017 10:4 2 EDT Scan 2 Greek Professor PROCEDURE/MINOR VELMA GICAL ORDERABLES * FLUID DIFFERENTIAL (05/23/2017 7:47 EDT) Neutrophils, Fluid 30 % 05/23/2017 11:34 T [facility] Lymphocytes, Fluid 64 % 05/23/2017 11:34 EDT [facility] Larue/Macro, Fluid 5 % 05/23/2017 11:34 [facility] Eosinophil, Fluid 1 % 05/23/2017 11:34 [facility] PERICARDIAL FLUID AND CAVITY, CS / Unknown 05/23/2017 7:47 EDT 05/23/2017 8:18 EDT Сергей Damico MD GEN LAB UNIT COLLECT ORDERABLES Performing Organization Address City/[facility] Co de Phone Number [facility] [address] [place] [address] * FUNGUS CULTURE/SMEAR, OTHER (05/23/2017 7:47 EDT) Fungal Smear No fungi seen 05/23/2017 14:20 EDT [facility] Result No fungi isolated 05/30/2017 7:35 EDT [facility] FOSMIC PERICARDIAL FLUID AND CAVITY, CS / Unknown 05/23/2017 7:47 EDT 05/23/2017 9:17 EDT Comment:Markedly bloody Сергей Damico MD MICROBIOLOGY - GENER AL ORDERABLES Performing Organization Address [facility] Co de Phone Number [facility] [address] [place] [address] * ANAEROBE CULTURE/SMEAR(INC. AEROBES), FLUID (05/23/2017 7:47 EDT) Gram Smear Result Few Polys 05/23/2017 9:37 EDT [facility] Gram Smear Result No bacteria seen 05/23/2017 9:37 EDT [facility] Result No growth 05/25/2017 11:45 EDT [facility] FOSMIC PERICARDIAL FLUID AND CAVITY, CS / Unknown 05/23/2017 7:47 EDT 05/23/2017 9:16 EDT Comment:Markedly bloody Сергей Damico MD MICROBIOLOGY - GENER AL ORDERABLES Performing Organization Address [facility] Co de Phone Number [facility] [address] [place] [address] * HEMATOCRIT, BODY FLUID (05/23/2017 7:47 EDT) Hematocrit,Bod y Fld 6.5 % 05/23/2017 9:56 EDT [facility] Comment:PERICARDIAL FLUID [facility] PERICARDIAL FLUID AND CAVITY, CS / Unknown 05/23/2017 7:47 EDT 05/23/2017 8:18 EDT Сергей Damico MD GEN LAB UNIT COLLECT ORDERABLES Performing Organization Address City/[facility] Co de Phone Number [facility] [address] [place] [address] * FLUID CELL COUNT (05/23/2017 7:47 EDT) RBC, Fluid 661,000 /cmm 05/23/2017 9:41 EDT [facility] Nucleated Cells 1,773 /cmm 05/23/2017 9:41 EDT [facility] Fluid Comment Markedly bloody 05/23/2017 9:41 EDT [facility] PERICARDIAL FLUID AND CAVITY, CS / Unknown 05/23/2017 7:47 EDT 05/23/2017 8:18 EDT Сергей Damico MD GEN LAB UNIT COLLECT ORDERABLES Performing Organization Address [facility] Co de Phone Number [facility] [address] [place] [address] * TOTAL PROTEIN, FLUID (05/23/2017 7:47 EDT) Protein, Fluid 5.5 g/dl 05/23/2017 9:58 EDT [facility] Comment: Reference Range: Pleural [...] the blood, serum, or plasma is recommended. [facility] PERICARDIAL FLUID AND CAVITY, CS / Unknown 05/23/2017 7:47 EDT 05/23/2017 8:18 EDT Сергей Damico MD GEN LAB UNIT COLLECT ORDERABLES Performing Organization Address City/[facility] Co de Phone Number [facility] [address] [place] [address] * LDH, FLUID (05/23/2017 7:47 EDT) LDH, Fluid 2,337 U/L 05/23/2017 10:05 EDT [facility] Comment: Pleural fluid specimen [...] the blood, serum, or plasma is recommended. [facility] PERICARDIAL FLUID AND CAVITY, CS / Unknown 05/23/2017 7:47 EDT 05/23/2017 8:18 EDT Сергей Damico MD GEN LAB UNIT COLLECT ORDERABLES Performing Organization Address [facility] [[email or web address]] de Phone Number [facility] [address] [place] [address] * GLUCOSE, FLUID (05/23/2017 7:47 EDT) Glucose, Fluid 54 mg/dl 05/23/2017 9:58 EDT [facility] Comment: Reference Range: Pleural [...] the blood, serum, or plasma is recommended. [facility] PERICARDIAL FLUID AND CAVITY, CS / Unknown 05/23/2017 7:47 EDT 05/23/2017 8:18 EDT Сергей Damico MD GEN LAB UNIT COLLECT ORDERABLES Performing Organization Address [place]/[facility] Co de Phone Number [facility] [address] [place] [address] * ALBUMIN, FLUID (05/23/2017 7:47 EDT) Albumin, Fluid 2.5 g/dl 05/23/2017 9:58 EDT [facility] Comment: Reference Range: Pleural [...] the blood, serum, or plasma is recommended. [facility] PERICARDIAL FLUID AND CAVITY, CS / Unknown 05/23/2017 7:47 EDT 05/23/2017 8:18 EDT Сергей Damico MD GEN LAB UNIT COLLECT ORDERABLES Performing Organization Address City/[facility]/ZIP Co de Phone Number [facility] [address] [place] [address] * EKG 12-LEAD (05/23/2017 7:20 EDT) 05/23/2017 7:20 EDT Narrative [facility] EKG - 05/23/2017 11:45 EDT ? [facility] ? Test Date: ?2017-05-23 Pat Name: ? DAVID MERA ?Department: ?? [address] ? Room: ? MW531 Gender: ? 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 [id number] : ?1950 ? Requested By: PRADIP MONET Order Number: [id number] ? Reading MD: ?? MARCO A FOX MD ? Measurements Intervals ?[place] ? Rate: ? 102 ?P: ? [place]: ? 0 ?QRS: ?-20 QRSD: ? 189 ?T: ?178 QT: ? 398 ? QTc: ?519 ? Interpretive Statements ELECTRONIC VENTRICULAR PACEMAKER ABNORMAL RHYTHM ECG I reviewed the tracing and have either agreed or edited the findings in this report. Electronically Signed On 05-23-17 11:45:47 EDT by MARCO A FOX MD. Procedure Note Marco A Fox MD - 05/23/[address] [facility] Test Date: 2017-05-23 Pat Name: DAVID MERA Department: [place] [address] Room: [facility] Gender: M Pest Control Operator: [id number] : 1950 Requested By: PRADIP MONET Order Number: [id number] Martha MD: MARCO A FOX MD Measurements Intervals [place] Rate: 102 P: [place]: 0 QRS: -20 QRSD: 189 T: 178 QT: 398 QTc: 519 Interpretive Statements ELECTRONIC VENTRICULAR PACEMAKER ABNORMAL RHYTHM ECG I reviewed the tracing and have either agreed or edited the findings inthis report. Electronically Signed On 05-23-17 11:45:47 EDT by MARCO A NGUYEN. Maria Antonia Zimmerman MD CARDIAC ECG ORDERABL ES [facility] EKG * (ABNORMAL) ELECTROLYTES (05/23/2017 6:42 EDT) Sodium 124(LL) 136 - 145 mEq/L 05/23/2017 7:45 EDT [facility] Potassium 3.5 3.5 - 5.0 mEq/L 05/23/2017 7:45 EDT [facility] Chloride 84(L) 96 - 110 mEq/L 05/23/2017 7:45 EDT [facility] CO2 33(H) 22 - 32 mEq/L 05/23/2017 7:45 EDT [facility] Blood specimen (specimen) BLOOD SPECIMEN / Unknown 05/23/2017 6:42 EDT 05/23/2017 7:16 EDT Jayne Pozo MD CHEMISTRY & BLOOD GA S ORDERABLES Performing Organization Address [facility] Co de Phone Number [facility] [address] [place] [address] * BUN (05/23/2017 6:42 EDT) BUN 10 10 - 26 mg/dl 05/23/2017 7:45 EDT [facility] Blood specimen (specimen) BLOOD SPECIMEN / Unknown 05/23/2017 6:42 EDT 05/23/2017 7:16 EDT Jayne Pozo MD CHEMISTRY & BLOOD GA S ORDERABLES Performing Organization Address [email or web address]] de Phone Number [facility] [address] [place] [address] * MAGNESIUM (05/23/2017 6:42 EDT) Magnesium 1.7 1.7 - 2.8 mg/dl 05/23/2017 7:45 EDT [facility] Blood specimen (specimen) BLOOD SPECIMEN / Unknown 05/23/2017 6:42 EDT 05/23/2017 7:16 EDT Jayne Pozo MD CHEMISTRY & BLOOD GA S ORDERABLES Performing Organization Address [facility] Co de Phone Number [facility] [address] [place] [address] * (ABNORMAL) CREATININE (05/23/2017 6:42 EDT) Creatinine 0.50(L) 0.66 - 1.25 mg/dl 05/23/2017 7:45 EDT [facility] GFR, Calculated 113 >60 ml/min/1.7 3m2 05/23/2017 7:45 EDT [facility] Comment: eGFR calculated using CKD-EPI equation for non Americans. Multiply eGFR by 1.16 for Americans. Blood specimen (specimen) BLOOD SPECIMEN / Unknown 05/23/2017 6:42 EDT 05/23/2017 7:16 EDT Jayne Pozo MD CHEMISTRY & BLOOD GA S ORDERABLES [facility] [address] [place] [address] * (ABNORMAL) HEMAGRAM (05/23/2017 6:42 EDT) WBC 8.96 4.0 - 10.4 K/cmm 05/23/2017 7:24 [facility] RBC 3.30(L) 4.36 - 5.78 M/cmm 05/23/2017 7:24 [facility] Hemoglobin 11.0(L) 13.8 - 17.3 gm/dl 05/23/2017 7:24 [facility] HCT 30.8(L) 39.5 - 50.2 % 05/23/2017 7:24 [facility] MCV 93 81 - 95 fl 05/23/2017 7:24 [facility] MCH 33.3(H) 27.6 - 33.0 pg 05/23/2017 7:24 [facility] MCHC 35.7 32.8 - 36.4 gm/dl 05/23/2017 7:24 [facility] RDW-CV 11.3 <14.2 % 05/23/2017 7:24 [facility] RDW-SD 38.5 <46.0 fl 05/23/2017 7:24 [facility] PLT 254 141 - 377 K/cmm 05/23/2017 7:24 [facility] MPV 11.2 9.5 - 12.7 fl 05/23/2017 7:24 [facility] Blood specimen (specimen) BLOOD SPECIMEN / Unknown 05/23/2017 6:42 EDT 05/23/2017 7:16 EDT Jayne Pozo MD HEMATOLOGY & PF4 ORD ERABLES [facility] [address] [place] [address] * CYTOPATHOLOGY (05/23/2017 0:00 EDT) Pathology Report: CYTOPATHOLOGY REPORT Reports generated via electronic interface contain original data; however they are lacking the format of the original report. Caution should be taken when reading/interpret ing unformatted reports. Name: ? DAVID MERA ? Accession #: ? [id number] : ? 1950 (Age: 66) ??M ?Collect [...] cellular enhancement technique. ? End of Report [facility] 05/23/2017 05/23/2017 9:4 0 EDT Сергей Damico MD PATHOLOGY ORDERABLES Performing Organization Address [facility] de Phone Number [facility] [address] [place] [address] * (ABNORMAL) ELECTROLYTES (05/22/2017 23:40 EDT) Sodium 125(L) 136 - 145 mEq/L 05/23/2017 0:39 EDT [facility] Potassium 3.3(L) 3.5 - 5.0 mEq/L 05/23/2017 0:39 EDT [facility] Chloride 84(L) 96 - 110 mEq/L 05/23/2017 0:39 EDT [facility] CO2 33(H) 22 - 32 mEq/L 05/23/2017 0:39 EDT [facility] Blood specimen (specimen) BLOOD SPECIMEN / Unknown 05/22/2017 23:40 EDT 05/22/2017 23:58 EDT Jayne Pozo MD CHEMISTRY & BLOOD GA S ORDERABLES Performing Organization Address [facility] [[email or web address]] de Phone Number [facility] [address] [place] [address] * (ABNORMAL) ELECTROLYTES (05/22/2017 18:36 EDT) Sodium 124(LL) 136 - 145 mEq/L 05/22/2017 19:37 EDT [facility] Comment:Slight hemolysis Potassium 3.9 3.5 - 5.0 mEq/L 05/22/2017 19:37 EDT [facility] Comment: Slight hemolysis Hemolysis may elevate potassium result. Chloride 81(L) 96 - 110 mEq/L 05/22/2017 19:37 EDT [facility] Comment:Slight hemolysis CO2 32 22 - 32 mEq/L 05/22/2017 19:37 EDT [facility] Comment:Slight hemolysis Blood specimen (specimen) BLOOD SPECIMEN / Unknown 05/22/2017 18:36 EDT 05/22/2017 19:04 EDT Jayne Pozo MD CHEMISTRY & BLOOD GA S ORDERABLES [facility] [address] [place] [address] * CHEST PA AND LATERAL (05/22/2017 14:43 [...] 136 - 145 mEq/L 05/22/2017 13:23 EDT [facility] Comment:Moderate hemolysis Potassium 5.3(H) 3.5 - 5.0 mEq/L 05/22/2017 13:23 EDT [facility] Comment: Moderate hemolysis Hemolysis may elevate potassium result. Chloride 85(L) 96 - 110 mEq/L 05/22/2017 13:23 EDT [facility] Comment:Moderate hemolysis CO2 27 22 - 32 mEq/L 05/22/2017 13:23 EDT [facility] Comment:Moderate hemolysis Blood specimen (specimen) BLOOD SPECIMEN / Unknown 05/22/2017 12:36 EDT 05/22/2017 12:51 EDT Jayne Pozo MD CHEMISTRY & BLOOD GA S ORDERABLES Performing Organization Address City/[facility] Co de Phone Number [facility] [address] [place] [address] * BACTERIAL CULTURE, BLOOD (05/22/2017 9:58 EDT) Result No growth 05/27/2017 6:35 EDT [facility] Blood specimen (specimen) BLOOD SPECIMEN / Unknown 05/22/2017 9:58 EDT 05/22/2017 10:47 EDT Comment:Left~Hand~AEROBIC BL OOD CULTURE BOTTLE~Volume of blood collected may not be adequate for detection of bacteremia/septicemia.~2ND SET Jayne Pozo MD MICROBIOLOGY - GENER AL ORDERABLES Performing Organization Address [facility] Co de Phone Number [facility] [address] [place] [address] * BACTERIAL CULTURE, BLOOD (05/22/2017 9:58 EDT) Result No growth 05/27/2017 6:35 EDT [facility] Blood specimen (specimen) BLOOD SPECIMEN / Unknown 05/22/2017 9:58 EDT 05/22/2017 10:47 EDT Comment:Left~Hand~Total volu me of blood collected:~20 ml Jayne Pozo MD MICROBIOLOGY - GENER AL ORDERABLES Performing Organization Address [facility] Co de Phone Number [facility] [address] [place] [address] * EKG 12-LEAD (05/22/2017 8:04 EDT) 05/22/2017 8:04 EDT Narrative [facility] EKG - 05/26/2017 12:50 EDT ? [facility] ? Test Date: ?2017-05-22 Pat Name: ? DAVID MERA ?Department: ?? [address] 5 ? Room: ? MW531 Gender: ? 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 [id number] : ?1950 ? Requested By: PRADIP MONET Order Number: [id number] ? Reading MD: ?? GAGAN RAMOS MD ? Measurements Intervals ?[place] ? Rate: ? 115 ?P: ?-20 [place]: ? 237 ?QRS: ?-24 QRSD: ? 177 [...] MD - 05/26/[address] 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 Electronically Signed On 05-26-17 12:50:27 EDT by GAGAN LEDESMA. Maria Antonia Zimmerman MD CARDIAC ECG ORDERABL ES [facility] EKG * BUN (05/22/2017 4:09 EDT) BUN 11 10 - 26 mg/dl 05/22/2017 4:54 EDT [facility] Blood specimen (specimen) BLOOD SPECIMEN / Unknown 05/22/2017 4:09 EDT 05/22/2017 4:18 EDT Jayne Pozo MD CHEMISTRY & BLOOD GA S ORDERABLES Performing Organization Address City/[facility]/ZIP Co de Phone Number [facility] [address] [place] [address] * MAGNESIUM (05/22/2017 4:09 EDT) Magnesium 2.1 1.7 - 2.8 mg/dl 05/22/2017 4:54 EDT [facility] Blood specimen (specimen) BLOOD SPECIMEN / Unknown 05/22/2017 4:09 EDT 05/22/2017 4:18 EDT Jayne Pozo MD CHEMISTRY & BLOOD GA S ORDERABLES Performing Organization Address [facility] Co de Phone Number [facility] [address] [place] [address] * (ABNORMAL) CREATININE (05/22/2017 4:09 EDT) Creatinine 0.56(L) 0.66 - 1.25 mg/dl 05/22/2017 4:54 EDT [facility] GFR, Calculated 108 >60 ml/min/1.7 3m2 05/22/2017 4:54 EDT [facility] Comment: eGFR calculated using CKD-EPI equation for non Americans. Multiply eGFR by 1.16 for Americans. Blood specimen (specimen) BLOOD SPECIMEN / Unknown 05/22/2017 4:09 EDT 05/22/2017 4:18 EDT Jayne Pozo MD CHEMISTRY & BLOOD GA S ORDERABLES Performing Organization Address [facility]/ZIP Co de Phone Number [facility] [address] [place] [address] * (ABNORMAL) HEMAGRAM (05/22/2017 4:09 EDT) WBC 10.75(H) 4.0 - 10.4 K/cmm 05/22/2017 4:37 EDT [facility] RBC 3.70(L) 4.36 - 5.78 M/cmm 05/22/2017 4:37 T [facility] Hemoglobin 12.2(L) 13.8 - 17.3 gm/dl 05/22/2017 4:37 T [facility] HCT 34.1(L) 39.5 - 50.2 % 05/22/2017 4:37 [facility] MCV 92 81 - 95 fl 05/22/2017 4:37 [facility] MCH 33.0 27.6 - 33.0 pg 05/22/2017 4:37 [facility] MCHC 35.8 32.8 - 36.4 gm/dl 05/22/2017 4:37 [facility] RDW-CV 10.9 <14.2 % 05/22/2017 4:37 [facility] RDW-SD 37.2 <46.0 fl 05/22/2017 4:37 [facility] PLT 294 141 - 377 K/cmm 05/22/2017 4:37 [facility] MPV 10.7 9.5 - 12.7 fl 05/22/2017 4:37 [facility] Blood specimen (specimen) BLOOD SPECIMEN / Unknown 05/22/2017 4:09 EDT 05/22/2017 4:18 EDT Jayne Pozo MD HEMATOLOGY & PF4 ORD ERABLES [facility] [address] [place] [address] * (ABNORMAL) ELECTROLYTES (05/22/2017 4:09 EDT) Sodium 122(LL) 136 - 145 mEq/L 05/22/2017 4:54 T [facility] Potassium 4.0 3.5 - 5.0 mEq/L 05/22/2017 4:54 EDT [facility] Chloride 84(L) 96 - 110 mEq/L 05/22/2017 4:54 EDT [facility] CO2 29 22 - 32 mEq/L 05/22/2017 4:54 EDT [facility] Blood specimen (specimen) BLOOD SPECIMEN / Unknown 05/22/2017 4:09 EDT 05/22/2017 4:18 EDT Maria Antonia Zimmerman MD CHEMISTRY & BLOOD GA S ORDERABLES Performing Organization Address [facility] [[email or web address]] de Phone Number [facility] [address] [place] [address] * (ABNORMAL) ELECTROLYTES (05/22/2017 0:23 EDT) Sodium 120(LL) 136 - 145 mEq/L 05/22/2017 1:00 EDT [facility] Potassium 3.4(L) 3.5 - 5.0 mEq/L 05/22/2017 1:00 EDT [facility] Chloride 83(L) 96 - 110 mEq/L 05/22/2017 1:00 EDT [facility] CO2 31 22 - 32 mEq/L 05/22/2017 1:00 EDT [facility] Blood specimen (specimen) BLOOD SPECIMEN / Unknown 05/22/2017 0:23 EDT 05/22/2017 0:27 EDT Maria Antonia Zimmerman MD CHEMISTRY & BLOOD GA S ORDERABLES Performing Organization Address [facility] Co de Phone Number [facility] [address] [place] [address] * EKG 12-LEAD (05/21/2017 20:29 EDT) 05/21/2017 20:2 9 EDT Narrative [facility] EKG - 05/30/2017 11:55 EDT ? [facility] ? Test Date: ?2017-05-21 Pat Name: ? DAVID MERA ?Department: ?? [place] ? Room: ? MW531 Gender: ? 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 [id number] : ?1950 ? Requested By: ROBLES Cabral Order Number: [id number] ? Reading MD: ?? ASHLEY CONSUELO MD ? Measurements Intervals ?[place] ? Rate: ? 109 ?P: ? [place]: ? 0 ?QRS: ?-41 QRSD: ? 179 [...] Ashley Edwards Jr., MD - 05/30/[address] [facility] Test Date: 2017-05-21 Pat Name: DAVID MERA Department: [place] [address] Room: [facility] Gender: M Pest Control Operator: [id number] : 1950 Requested By: ROBLES Cabral Order Number: [id number] Reading MD: ASHLEY EDWARDS MD Measurements Intervals [place] Rate: 109 P: [place]: 0 QRS: -41 QRSD: 179 T: 175 QT: 391 QTc: 528 Interpretive Statements ELECTRONIC VENTRICULAR PACEMAKER ABNORMAL RHYTHM ECG Compared to ECG 05/21/2017 07:12:25 No significant changes I reviewed the tracing and have either agreed or edited the findings inthis report. Electronically Signed On 05-30-17 11:55:09 EDT by ASHLEY RAI. Seng Rand MD PhD CARDIA C ECG ORDERABLES [facility] EKG * PORTABLE CHEST 1 VIEW [...] 136 - 145 mEq/L 05/21/2017 20:54 EDT [facility] Potassium 3.7 3.5 - 5.0 mEq/L 05/21/2017 20:54 EDT [facility] Chloride 79(L) 96 - 110 mEq/L 05/21/2017 20:54 EDT [facility] CO2 32 22 - 32 mEq/L 05/21/2017 20:54 EDT [facility] Blood specimen (specimen) BLOOD SPECIMEN / Unknown 05/21/2017 20:08 EDT 05/21/2017 20:28 EDT Maria Antonia Zimmerman MD CHEMISTRY & BLOOD GA S ORDERABLES [facility] [address] [place] [address] * PERMANENT PACEMAKER PROCEDURE (05/21/2017 19:42 EDT) Anatomical Region Laterality Modality Other 05/21/2017 19:4 2 EDT Narrative 05/21/2017 20:01 EDT *Cardiology* [address] [place] [address] Lead Revision Patient: David Mera ? Study Date: ?05/21/2017 ? Accession #: ? [id number] : ? 1950 Referring: Katia Mccallum Attending: [...] and the lead was extracted. A 7 Panamanian safety sheath was advanced over the wire [...] topical skin adhesive. IMPLANTED HARDWARE: Implanted device: [employer]. - [employer] [facility] - Serial number: [id number]. Implanted originally on 05-02-2017. LEAD PARAMETERS + + + + + Lead # ? 1 ? 1 ? 2 ? + + + + + Chamber ? RA ? RA ? RV ? + + + + + Date implanted ?? 05/02/2017 ? 05/21/2017 ? 05/02/2017 ? + + + + + Model ? [employer] Medtronic Select Parchman Sci 1881 ?? information ? 7790 ? Secure-59 [id number] ? + + + + + Serial number ?? [id number] ? [id number] ? [id number] ? + + + + + Location [...] Seng Rand MD - 05/21/2017 *Cardiology* [address] [place] [address] Lead Revision Patient: David Mera Study Date: [...] and the lead was extracted. A 7 Panamanian safety sheath was advanced over the wire [...] topical skin adhesive. IMPLANTED HARDWARE: Implanted device: [employer] - [employer] - Serial number: [id number]. Implanted originally on 05-02-2017. LEAD PARAMETERS + + + + + Lead # 1 1 2 + + + + + Chamber RA RA RV + + + + + Date implanted 05/02/2017 05/21/2017 05/02/2017 + + + + + Model [employer] Medtronic Select Parchman Sci 7742 information 7740 Secure-59 [id number] + + + + + Serial number [id number] + + + + + Location RA [...] be added FREE T4,TSH 05/21/2017 18:16 EDT [facility] Number for problems [id number] 05/21/2017 18:23 EDT [facility] Accession number [id number] TO [id number] 05/21/2017 18:23 EDT [facility] TOPOGRAPHY UNKNOWN / Unknown 05/21/2017 18:20 EDT 05/21/2017 18:22 EDT Jayesh Garcia MD HEMATOLOGY & PF4 O RDERABLES [facility] [address] [place] [address] * CREATININE, URINE RANDOM (05/21/2017 18:20 EDT) Creatinine, Urn [place] 26.2 mg/dl 05/21/2017 21:25 EDT [facility] Urine specimen (specimen) URINE / Unknown 05/21/2017 18:20 EDT 05/21/2017 21:06 EDT Jayesh Garcia MD URINALYSIS ORDERAB LES Performing Organization Address [facility] Co de Phone Number [facility] [address] [place] [address] * PROTEIN, TOTAL, RANDOM, URINE (05/21/2017 18:20 EDT) Tot Prot,Ur Random 21 mg/dl 05/21/2017 21:25 EDT [facility] Urine specimen (specimen) URINE / Unknown 05/21/2017 18:20 EDT 05/21/2017 21:06 EDT Jayseh Garcia MD URINALYSIS ORDERAB LES Performing Organization Address [facility] [[email or web address]] de Phone Number [facility] [address] [place] [address] * ECHOCARDIOGRAM LIMITED (05/21/2017 18:19 EDT) Anatomical Region Laterality Modality Other 05/21/2017 18:1 9 EDT Narrative 05/22/2017 8:34 EDT *Interpreting Group:* *[facility]* [address] [place] [address] Date of study: 05/21/2017 Transthoracic Echocardiography M-mode, [...] stop time: ??07:33 PM. PERFORMING ?? [facility], MEDICAL STAFF COORDINATOR ??Emilia Corey RDCS *PROCEDURE DATA* Procedure information: ??This study was interpreted by [facility]. Pertinent images and digital data are archived for permanent storage and are available for subsequent review. Study status: ??STAT. Transthoracic echocardiography. ??M-mode, limited 2D, limited spectral Doppler, and color Doppler. A Transthoracic Echocardiogram was performed. Scanning was performed from the parasternal, apical, and subcostal acoustic windows. Images were obtained using an [id number] 13 cardiac ultrasound machine. Image quality was [...] Rubio MD - 05/22/2017 *Interpreting Group:* *[facility]* [address] [place] [address] Date of study: 05/21/2017 Transthoracic Echocardiography M-mode, [...] Test stop time: 07:33 PM. PERFORMING [facility], MEDICAL STAFF COORDINATOR Emilia Corey RDCS *PROCEDURE DATA* Procedure information: This study was interpreted by [facility]. Pertinent images and [...] 0.47 - 4.68 uIU/ml 05/21/2017 19:42 EDT [facility] BLOOD SPECIMEN / Unknown 05/21/2017 14:02 EDT 05/21/2017 14:12 EDT Maria Antonia Zimmerman MD CHEMISTRY & BLOOD GA S ORDERABLES [facility] [address] [place] [address] * T4 FREE (05/21/2017 14:02 EDT) T4, Free 1.5 0.8 - 2.2 ng/dl 05/21/2017 19:29 EDT [facility] BLOOD SPECIMEN / Unknown 05/21/2017 14:02 EDT 05/21/2017 14:12 EDT Maria Antonia Zimmerman MD CHEMISTRY & BLOOD GA S ORDERABLES Performing Organization Address City/[facility] Co de Phone Number [facility] [address] [place] [address] * (ABNORMAL) ELECTROLYTES (05/21/2017 14:02 EDT) Sodium 116(LL) 136 - 145 mEq/L 05/21/2017 14:53 EDT [facility] Potassium 4.1 3.5 - 5.0 mEq/L 05/21/2017 14:53 EDT [facility] Chloride 78(L) 96 - 110 mEq/L 05/21/2017 14:53 EDT [facility] CO2 28 22 - 32 mEq/L 05/21/2017 14:53 EDT [facility] Blood specimen (specimen) BLOOD SPECIMEN / Unknown 05/21/2017 14:02 EDT 05/21/2017 14:12 EDT Maria Antonia Zimmerman MD CHEMISTRY & BLOOD GA S ORDERABLES Performing Organization Address City/[facility]/ZIP Co de Phone Number [facility] [address] [place] [address] * ECHOCARDIOGRAM (05/21/2017 10:30 EDT) Anatomical Region Laterality Modality Other 05/21/2017 10:3 0 EDT Narrative 05/21/2017 10:48 EDT *Interpreting Group:* *[facility]* [address] [place] [address] Date of study: 05/21/2017 Transthoracic Echocardiography M-mode, [...] Test stop time: ??10:23 AM. ADMITTING ?Akash eRyes MD ATTENDING ?Andres Luis MD PERFORMING ?? [facility], Ip ORDERING ? Maria Antonia Zimmerman MEDICAL STAFF COORDINATOR ??Jose G Bauer REFERRING ?Katia Mccallum *PROCEDURE DATA* Procedure information: ??The patient was identified by two identifiers. This study was interpreted by [facility]. Pertinent images and [...] Andrade MD - 05/21/2017 *Interpreting Group:* *[facility]* [address] [place] [address] Date of study: 05/21/2017 Transthoracic Echocardiography M-mode, [...] PERFORMING [facility], [facility] ORDERING Maria Antonia Zimmerman MEDICAL STAFF COORDINATOR Jose G Bauer Katelyn Doran *PROCEDURE DATA* Procedure information: The patient was identified by two identifiers. This study was interpreted by [facility]. Pertinent images and [...] 117(LL) 136 - 145 mEq/L 05/21/2017 11:15 [facility] Potassium 3.7 3.5 - 5.0 mEq/L 05/21/2017 11:15 [facility] Chloride 77(L) 96 - 110 mEq/L 05/21/2017 11:15 [facility] CO2 30 22 - 32 mEq/L 05/21/2017 11:15 [facility] Blood specimen (specimen) BLOOD SPECIMEN / Unknown 05/21/2017 9:55 EDT 05/21/2017 10:59 EDT Maria Antonia Zimmerman MD CHEMISTRY & BLOOD GA S ORDERABLES [facility] [address] [place] [address] * EKG 12-LEAD (05/21/2017 7:12 EDT) 05/21/2017 7:12 EDT Narrative [facility] EKG - 05/23/2017 15:04 EDT ? [facility] ? Test Date: ?2017-05-21 Pat Name: ? DAVID MERA ?Department: ?? [address] ? Room: ? MW531 Gender: ? 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 [id number] : ?1950 ? Requested By: PRADIP MONET Order Number: [id number] ? Martha OAKES: ?? SENG PERSON SA, MD ? Measurements Intervals ?[place] ? Rate: ? 75 ? P: ?31 OH: ? 173 ?QRS: ?-73 QRSD: ? 183 [...] MD - 05/23/[address] [facility] Test Date: 2017-05-21 Pat Name: DAVID MERA Department: [place] [address] Room: [facility] Gender: M Pest Control Operator: [id number] : 1950 Requested By: PRADIP MONET Order Number: [id number] Martha MD: SENG ROBLEDO Measurements Intervals [place] Rate: 75 P: 31 OH: 173 QRS: -73 QRSD: 183 T: 174 [...] Antonia Zimmerman MD CARDIAC ECG ORDERABL ES [facility] EKG * INPATIENT ADD-ON (05/21/2017 6:55 EDT) Tests to be added MAGNESIUM 05/21/2017 6:53 EDT [facility] Number for problems [id number] 05/21/2017 7:10 EDT [facility] Accession number [id number] 05/21/2017 7:10 EDT [facility] TOPOGRAPHY UNKNOWN / Unknown 05/21/2017 6:55 EDT 05/21/2017 7:10 EDT Maria Antonia Zimmerman MD HEMATOLOGY & PF4 ORD ERABLES Performing Organization Address City/[facility] Co de Phone Number [facility] [address] [place] [address] * INPATIENT ADD-ON (05/21/2017 6:40 EDT) Tests to be added ALT,ALK PHOS,AST,T OTAL BILI,ALBUM IN 05/21/2017 6:38 EDT [facility] Number for problems [id number] 05/21/2017 6:50 EDT [facility] Accession number [id number] 05/21/2017 6:50 EDT [facility] TOPOGRAPHY UNKNOWN / Unknown 05/21/2017 6:40 EDT 05/21/2017 6:49 EDT Maria Antonia Zimmerman MD HEMATOLOGY & PF4 ORD ERABLES [facility] [address] [place] [address] * MAGNESIUM (05/21/2017 5:57 EDT) Magnesium 1.8 1.7 - 2.8 mg/dl 05/21/2017 7:53 EDT [facility] BLOOD SPECIMEN / Unknown 05/21/2017 5:57 EDT 05/21/2017 6:09 EDT Maria Antonia Zimmerman MD CHEMISTRY & BLOOD GA S ORDERABLES Performing Organization Address City/[facility]/ZIP Co de Phone Number [facility] [address] [place] [address] * BILIRUBIN, TOTAL (05/21/2017 5:57 EDT) Bilirubin, Total 0.6 <1.4 mg/dl 05/21/2017 7:30 EDT [facility] BLOOD SPECIMEN / Unknown 05/21/2017 5:57 EDT 05/21/2017 6:09 EDT Maria Antonia Zimmerman MD CHEMISTRY & BLOOD GA S ORDERABLES Performing Organization Address [facility]/ZIP Co de Phone Number [facility] [address] [place] [address] * AST (05/21/2017 5:57 EDT) Pathologist [facility] AST 33 15 - 46 U/L 05/21/2017 7:30 EDT [facility] BLOOD SPECIMEN / Unknown 05/21/2017 5:57 EDT 05/21/2017 6:09 EDT Maria Antonia Zimmerman MD CHEMISTRY & BLOOD GA S ORDERABLES Performing Organization Address [facility] Co de Phone Number [facility] [address] [place] [address] * ALT (05/21/2017 5:57 EDT) ALT 39 21 - 72 U/L 05/21/2017 7:30 EDT [facility] BLOOD SPECIMEN / Unknown 05/21/2017 5:57 EDT 05/21/2017 6:09 EDT Maria Antonia Zimmerman MD CHEMISTRY & BLOOD GA S ORDERABLES Performing Organization Address City/[facility]/ZIP Co de Phone Number [facility] [address] [place] [address] * ALKALINE PHOSPHATASE (05/21/2017 5:57 EDT) Total Alkaline Phosphatase 81 38 - 126 U/L 05/21/2017 7:30 EDT [facility] BLOOD SPECIMEN / Unknown 05/21/2017 5:57 EDT 05/21/2017 6:09 EDT Maria Antonia Zimmerman MD CHEMISTRY & BLOOD GA S ORDERABLES Performing Organization Address [facility] Co de Phone Number [facility] [address] [place] [address] * (ABNORMAL) ALBUMIN (05/21/2017 5:57 EDT) Albumin 3.0(L) 3.4 - 4.9 g/dl 05/21/2017 7:30 EDT [facility] BLOOD SPECIMEN / Unknown 05/21/2017 5:57 EDT 05/21/2017 6:09 EDT Maria Antonia Zimmerman MD CHEMISTRY & BLOOD GA S ORDERABLES Performing Organization Address [facility] Co de Phone Number [facility] [address] [place] [address] * (ABNORMAL) ELECTROLYTES (05/21/2017 5:57 EDT) Sodium 117(LL) 136 - 145 mEq/L 05/21/2017 6:47 EDT [facility] Potassium 3.5 3.5 - 5.0 mEq/L 05/21/2017 6:47 EDT [facility] Chloride 76(L) 96 - 110 mEq/L 05/21/2017 6:47 EDT [facility] CO2 31 22 - 32 mEq/L 05/21/2017 6:47 EDT [facility] Blood specimen (specimen) BLOOD SPECIMEN / Unknown 05/21/2017 5:57 EDT 05/21/2017 6:12 EDT Maria Antonia Zimmerman MD CHEMISTRY & BLOOD GA S ORDERABLES Performing Organization Address [facility]/ZIP Co de Phone Number [facility] [address] [place] [address] * (ABNORMAL) PROTIME (05/21/2017 5:57 EDT) Pro Time 16.3(H) 10.3 - 13.4 secs 05/21/2017 6:30 EDT [facility] Comment:NOTE NEW REFERENCE R ANTONIETA OF APR 03 2017 I.N.R. 1.4(H) 0.9 - 1.1 Ratio 05/21/2017 6:30 EDT [facility] Comment: Moderate Intensity Coumadin INR = 2.0-3.0 Adjustments in anticoagulant therapy dose should be based upon the INR and NOT the Pro Time. Blood specimen (specimen) BLOOD SPECIMEN / Unknown 05/21/2017 5:57 EDT 05/21/2017 6:09 EDT Maria Antonia Zimmerman MD HEMATOLOGY & PF4 ORD ERABLES Performing Organization Address [facility] Co de Phone Number [facility] [address] [place] [address] * HIV 1/2 ANTIGEN AND ANTIBODY, 4TH GENERATION (05/21/2017 5:57 EDT) [facility] HIV 1/2 Antibody Negative Negative 05/22/19 18 11:32 EDT [facility] Comment: Fourth generation assay performed on the Solutoaur. If acute HIV-1 infection is suspected in a high risk patient, submit plasma specimen for HIV-1 RNA quantification test. Blood specimen (specimen) BLOOD SPECIMEN / Unknown 05/21/2017 5:57 EDT 05/21/2017 6:09 EDT Maria Antonia Zimmerman MD IMMUNOLOGY AND SEROL OGY ORDERABLES Performing Organization Address City/[facility] Co de Phone Number [facility] [address] [place] [address] * (ABNORMAL) BUN (05/21/2017 5:57 EDT) BUN 5(L) 10 - 26 mg/dl 05/21/2017 6:34 EDT [facility] Blood specimen (specimen) BLOOD SPECIMEN / Unknown 05/21/2017 5:57 EDT 05/21/2017 6:09 EDT Maria Antonia Zimmerman MD CHEMISTRY & BLOOD GA S ORDERABLES Performing Organization Address City/[facility] Co de Phone Number [facility] [address] [place] [address] * (ABNORMAL) CREATININE (05/21/2017 5:57 EDT) Creatinine 0.43(L) 0.66 - 1.25 mg/dl 05/21/2017 6:34 EDT [facility] GFR, Calculated 120 >60 ml/min/1.7 3m2 05/21/2017 6:34 EDT [facility] Comment: eGFR calculated using CKD-EPI equation for non Americans. Multiply eGFR by 1.16 for Americans. Blood specimen (specimen) BLOOD SPECIMEN / Unknown 05/21/2017 5:57 EDT 05/21/2017 6:09 EDT Maria Antonia Zimmerman MD CHEMISTRY & BLOOD GA S ORDERABLES Performing Organization Address City/[facility] Co de Phone Number [facility] [address] [place] [address] * (ABNORMAL) HEMAGRAM AND DIFFERENTIAL (05/21/2017 5:57 EDT) WBC 6.90 4.0 - 10.4 K/cmm 05/21/2017 6:30 EDT [facility] RBC 3.25(L) 4.36 - 5.78 M/cmm 05/21/2017 6:30 EDT [facility] Hemoglobin 10.9(L) 13.8 - 17.3 gm/dl 05/21/2017 6:30 EDT [facility] HCT 29.7(L) 39.5 - 50.2 % 05/21/2017 6:30 [facility] MCV 91 81 - 95 fl 05/21/2017 6:30 [facility] MCH 33.5(H) 27.6 - 33.0 pg 05/21/2017 6:30 [facility] MCHC 36.7(H) 32.8 - 36.4 gm/dl 05/21/2017 6:30 [facility] RDW-CV 10.6 <14.2 % 05/21/2017 6:30 [facility] RDW-SD 36.1 <46.0 fl 05/21/2017 6:30 [facility] PLT 266 141 - 377 K/cmm 05/21/2017 6:30 [facility] MPV 10.7 9.5 - 12.7 fl 05/21/2017 6:30 [facility] % Neutrophils 61.6 % 05/21/2017 6:30 [facility] % Lymphocytes 19.0 % 05/21/2017 6:30 [facility] % Monocytes 16.7 % 05/21/2017 6:30 [facility] % Eosinophils 1.6 % 05/21/2017 6:30 [facility] % Basophils 0.7 % 05/21/2017 6:30 [facility] % Immature Grans 0.4 % 05/21/2017 6:30 [facility] ABS Neutrophils 4.25 2.20 - 8.85 K/cmm 05/21/2017 6:30 [facility] ABS Lymphs 1.31 1.09 - 3.30 K/cmm 05/21/2017 6:30 [facility] ABS Monocytes 1.15(H) 0.1 - 0.8 K/cmm 05/21/2017 6:30 [facility] ABS Eosinophils 0.11 0.03 - 0.61 K/cmm 05/21/2017 6:30 [facility] ABS Basophils 0.05 0.01 - 0.11 K/cmm 05/21/2017 6:30 EDT [facility] ABS Immature Grans 0.03 0 - 0.06 K/cmm 05/21/2017 6:30 EDT [facility] Type of Diff: Automated 05/21/2017 6:30 EDT [facility] Blood specimen (specimen) BLOOD SPECIMEN / Unknown 05/21/2017 5:57 EDT 05/21/2017 6:09 EDT Maria Antonia Zimmerman MD PACKAGES & DNA PROBE ORDERABLES Performing Organization Address [facility] de Phone Number [facility] [address] [place] [address] * (ABNORMAL) ELECTROLYTES (05/21/2017 3:28 EDT) Sodium 116(LL) 136 - 145 mEq/L 05/21/2017 4:01 EDT [facility] Potassium 3.3(L) 3.5 - 5.0 mEq/L 05/21/2017 4:01 EDT [facility] Chloride 77(L) 96 - 110 mEq/L 05/21/2017 4:01 EDT [facility] CO2 31 22 - 32 mEq/L 05/21/2017 4:01 EDT [facility] Blood specimen (specimen) BLOOD SPECIMEN / Unknown 05/21/2017 3:28 EDT 05/21/2017 3:35 EDT Maria Antonia Zimmerman MD CHEMISTRY & BLOOD GA S ORDERABLES Performing Organization Address [email or web address]] de Phone Number [facility] [address] [place] [address] * EKG 12-LEAD (05/21/2017 1:25 EDT) 05/21/2017 1:25 EDT Narrative [facility] EKG - 05/23/2017 10:35 EDT ? [facility] ? Test Date: ?2017-05-21 Pat Name: ? DAVID MERA ?Department: ?? [address] ? Room: ? MW531 Gender: ? 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 [id number] : ?1950 ? Requested By: PRADIP MONET Order Number: [id number] ? Reading MD: ?? PIERRE RUBIO MD ? Measurements Intervals ?[place] ? Rate: ? 75 ? P: ?13 OH: ? 160 ?QRS: ?-81 QRSD: ? 185 [...] Note Pierre Rubio MD - 05/23/[address] [facility] Test Date: 2017-05-21 Pat Name: DAVID MERA Department: [place] [address] Room: [facility] Gender: M Pest Control Operator: [id number] : 1950 Requested By: PRADIP MONET Order Number: [id number] Martha MD: PIERRE RUBIO MD Measurements Intervals [place] Rate: 75 P: 13 OH: 160 QRS: -81 QRSD: 185 T: 171 QT: 495 QTc: 556 Interpretive Statements SINUS RHYTHM WITH ATRIAL TRACKING and VENTRICULAR PACING Compared to ECG 05/03/2017 04:23:33 No significant changes I reviewed the tracing and have either agreed or edited the findings inthis report. Electronically Signed On 05-23-17 10:35:38 EDT by PIERRE YEBOAH. Marai Antonia Zimmerman MD CARDIAC ECG ORDERABL ES [facility] EKG * INPATIENT ADD-ON (05/21/2017 0:00 EDT) Tests to be added URINE OSM 05/20/2017 23:58 EDT [facility] Number for problems Not Given 05/21/2017 0:02 EDT [facility] Accession number [id number] 05/21/2017 0:02 EDT [facility] TOPOGRAPHY UNKNOWN / Unknown 05/21/2017 05/21/2017 0:02 EDT Maria Antonia Zimmerman MD HEMATOLOGY & PF4 ORD ERABLES Performing Organization Address City/[facility]/ZIP Co de Phone Number [facility] [address] [place] [address] * OSMOLALITY, URINE (05/20/2017 23:45 EDT) Osmolality, Ur 251 150 - 1,150 mos/kg 05/21/2017 0:15 EDT [facility] URINE / Unknown 05/20/2017 2 3:45 EDT 05/20/2017 23:55 EDT Laly Kim MD URINALYSIS ORDERRyan PFEIFFER Performing Organization Address [facility] Co de Phone Number [facility] [address] [place] [address] * SODIUM, URINE RANDOM (05/20/2017 23:45 EDT) Sodium, Ur 18.0 mEq/L 05/21/2017 0:18 EDT [facility] Urine specimen (specimen) URINE / Unknown 05/20/2017 23:45 EDT 05/20/2017 23:55 EDT Laly Kim MD URINALYSIS ORDERRyan PFEIFFER Performing Organization Address [facility] Co de Phone Number [facility] [address] [place] [address] * CREATININE, URINE RANDOM (05/20/2017 23:45 EDT) Creatinine, Urn [place] 43.1 mg/dl 05/21/2017 0:18 EDT [facility] Urine specimen (specimen) URINE / Unknown 05/20/2017 23:45 EDT 05/20/2017 23:55 EDT Laly Kim MD URINALYSIS ORDERRyan PFEIFFER Performing Organization Address [facility]/ZIP Co de Phone Number [facility] [address] [place] [address] * POCT US CARDIAC (05/20/2017 22:45 EDT) Anatomical Region Laterality Modality Other 05/20/2017 22:4 5 EDT 05/20/2017 23:51 EDT Narrative 05/20/2017 23:51 EDT [facility] - Ultrasound Exam Date: 05/20/2017 Exam Type: POCT US CARDIAC Dryer And Washer Mechanic: Laly Kim MD Attending: Laly Kim MD [...] exam was performed and interpreted by the [facility] ED Staff Procedure Note Laly Kim MD - 05/20/2017 [facility] - Ultrasound Exam Date: 05/20/2017 Exam Type: POCT US CARDIAC Dryer And Washer Mechanic: Laly Kim MD Attending: Laly Kim MD [...] exam was performed and interpreted by the [facility] ED Staff Laly Kim MD IMG POCT US ORDER IRWIN * (ABNORMAL) BASIC METABOLIC PANEL (BMP) (05/20/2017 22:40 EDT) Sodium 116(LL) 136 - 145 mEq/L 05/20/2017 23:14 [facility] Potassium 3.6 3.5 - 5.0 mEq/L 05/20/2017 23:14 [facility] Chloride 74(L) 96 - 110 mEq/L 05/20/2017 23:14 [facility] CO2 32 22 - 32 mEq/L 05/20/2017 23:14 [facility] BUN 6(L) 10 - 26 mg/dl 05/20/2017 23:14 [facility] Creatinine 0.44(L) 0.66 - 1.25 mg/dl 05/20/2017 23:14 [facility] GFR, Calculated 119 >60 ml/min/1.7 3m2 05/20/2017 23:14 [facility] Comment: eGFR calculated using CKD-EPI equation for non Americans. Multiply eGFR by 1.16 for Americans. Calcium 8.7 8.5 - 10.5 mg/dl 05/20/2017 23:14 [facility] Calculated Calcium 9.2 8.5 - 10.5 mg/dl 05/20/2017 23:14 [facility] Glucose, Serum 108(H) 70 - 100 mg/dl 05/20/2017 23:14 [facility] Fasting? Unknown 05/20/2017 23:14 [facility] Blood specimen (specimen) BLOOD SPECIMEN / Unknown 05/20/2017 22:40 EDT 05/20/2017 22:58 EDT Laly Kim MD CHEMISTRY & BLOOD GAS ORDERABLES [facility] [address] [place] [address] documented in this encounter Visit Diagnoses Diagnosis [...] 05/02 documented in this encounter Care Teams Disability Program Navigator Relationship Specialty Start Date End Date Katia Stone, PABijalC [address] [place] [phone] PCP - General 05/02/17 documented as of this encounter
--- OUTSIDE RECORDS SUMMARY | 2023-12-15 13:04 | XMS_ITS | Encounter Summary ---
Author Organization [facility] [place] [address] Care Team Providers Care Brake Assembler Name Role Phone Katia Stone Primary Care Provider Reason for Visit * Reason Onset Date Comments Other 09/24/2022 Cardiac Device I mplant Teaching/Education Encounter Details Date Type Department Care Team (Late st Contact Info) Description 09/24/2022 Notes Only Cardiology at [address] [phone] Magi Lowery Other (Cardiac Device Implant Teaching/Education) Social History Tobacco Use Types Packs/Day Years Used Date Smoking Tobacco: Never Smokeless Tobacco: Never Alcohol Use Standard Drinks/Week Comments Yes 14 (1 standard drink = 0.6 oz pu re alcohol) [facility] Inpatient Questions Answer Date Recorded Does Anyone [...] to call the Cardiac Device Clinic at [phone] with any questions. Plan: Post op check: [...] AM EST Hospital Encounter [place] [address] Arrived documented as of this encounter Visit Diagnoses Not on filedocumented in this encounter Care Teams Brake Assembler Relationship Specialty Start Date End Date Katia Stone PA [address] [facility] [place] [facility] [place] [phone] PCP - General General Internal Medicine 11/10/18 documented as of this encounter
--- OUTSIDE RECORDS SUMMARY | 2023-12-15 13:04 | XMS_ITS | Encounter Summary ---
[place] [address] Care Team Providers Care Cooper Helper Name Role Phone Katia Stone Primary Care Provider [phone] Encounter Details Date Type Department Care Team (Latest Contact Info) Description 05/15/2022 10:00 AM EDT - 05/15/2022 11:59 PM EDT Hospital Encounter [place] [phone] Discharge Disposition: Home Social History Tobacco Use [...] AM EST Hospital Encounter [place] [phone] Arrived documented as of this encounter Visit Diagnoses Not on filedocumented in this encounter Care Teams Cooper Helper Relationship Specialty Start Date End Date Katia Stone PA [address] [facility] [place] [phone] PCP - General General Internal Medicine 11/10/18 documented as of this encounter
--- OUTSIDE RECORDS SUMMARY | 2023-12-15 13:04 | XMS_ITS | Encounter Summary ---
[place] [address] Care Team Providers Care Inspector And Mender Name Role Phone Katia Stone Primary Care Provider Encounter Details Date Type Department Care Team (Late st Contact Info) Description 09/18/2022 Telephone Cardiology at [address] [phone] Zee Hyde Social History Tobacco Use Types [...] she will schedule him for those at [facility]. documented in this encounter Plan of Treatment Upcoming Encounters Date Type Department Care Team (Late st Contact Info) Description 02/04/2024 10:00 AM [facility] Hospital Encounter Non[place] [phone] Arrived documented as of this encounter Visit Diagnoses Not on filedocumented in this encounter Care Teams Inspector And Mender Relationship Specialty Start Date End Date Katia Stone PA [address] [place] [phone] PCP - General General Internal Medicine 11/10/18 documented as of this encounter
--- OUTSIDE RECORDS SUMMARY | 2023-12-15 13:04 | XMS_ITS | Encounter Summary ---
Author Organization [facility] [place] [address] Care Team Providers Care Slate Worker Name Role Phone Katia Stone Primary Care Provider [phone] Reason for Visit * Reason Onset Date Comments Pre Procedure Call 09/11/2022 Encounter Details Date Type Department Care Team (Late st Contact Info) Description 09/11/2022 Telephone Cardiology at [address] [phone] Patsy Gaffney, RN Pre Procedure Call Social [...] Generator Replacement + Atrial Lead Replacement EP TAX REPRESENTATIVE COORDINATION CHECKLIST Patient Name: Tim Mera - [facility]instructions also to be faxed) Patient Performing Human Resources Officer: Dylan Story Referring Provider: Humberto Ashraf Date of Procedure: 09/23/22 Arrival Time/ Case Time: 12:00 pm / 1:00 pm Check In Location: Machine Preservative Filler Desk 4W Date Patient was Called: 09/11/22 Procedure: Generator Replacement + New Atrial Lead Placement Company: [email or web address] Type: DC PCM Orders: Yes Lab Orders: [...] Instructions: Clear liquids (water, apple juice, james rehka) OK up until 2 hrs prior to procedure, nothing to eatafter midnight on day of procedure.Same Day will call 09/20. If applicable will bring CPAP from home. Will be staying overnight , understands that they will need peg driver on day of discharge Notified pt that Webber catheter may be placed on day of procedure depending on type & duration of case. documented in this encounter Plan of Treatment Upcoming Encounters Date Type Department Care Team (Late st Contact Info) Description 02/04/2024 10:00 AM [facility] Hospital Encounter [place] [phone] Arrived documented as of this encounter Visit Diagnoses Not on filedocumented in this encounter Care Teams Slate Worker Relationship Specialty Start Date End Date Katia Stone PA [address] [place] [phone] PCP - General General Internal Medicine 11/10/18 documented as of this encounter
--- OUTSIDE RECORDS SUMMARY | 2023-12-15 13:04 | XMS_ITS | Encounter Summary ---
Author Organization [facility] [place] [address] Care Team Providers Care Campaign Worker Name Role Phone Katia Stone Primary Care Provider Reason for Referral * Diagnostic Test (Routine) - Closed Specialty Diagnoses / Procedures Referred By Contac t Referred To Contact Radiology Diagnoses Abdominal visceral abscess Procedures CT Guided Drain Peritoneal Virginia Price [address] [place] [address] [facility] [address] [place] [address] Referral ID Status Reason Start Date Expiration Date V isits Requested Visits Authorized [id number] Closed Specialty Service Requested 07/09/2021 01/09/2023 1 1 Reason for Visit * Diagnostic Test (Routine) - Closed Specialty Diagnoses / Procedures Referred By Contac t Referred To Contact Radiology Diagnoses Abdominal visceral abscess Procedures CT Guided Drain Peritoneal Virginia Price [address] [place] [address] [facility] [address] [place] [address] Referral ID Status Reason Start Date Expiration Date V isits Requested Visits Authorized [id number] Closed Specialty Service Requested 07/09/2021 01/09/2023 1 1 Encounter Details Date Type Department Care Team (Latest Contact Info) Description 07/10/2021 9:19 AM EDT - 07/10/2021 11:59 PM EDT Hospital [place] [address] Virginia Price, DO [address] [place] [address] Abdominal visceral abscess (Primary Dx) Discharge Disposition: [...] is during regular office hours, please call [phone]. If it is after regular office hours, or on weekends or holidays, please call [phone] and ask to speak to the [employer] adjuster piano action for Interventional Radiology. XX You have received [...] of : 1950 AGE: 70 y.o. Address: [place] [address] (home) Mobile: No relevant phone numbers on file. Referring Provider: Virignia Price REASON FOR VISIT: Order Questions Answers Where will study be performed? [facility] Radiology [120] Is the patient on [...] Questions Answers Where will study be performed? [facility] Radiology [120] Is the patient on [...] Questions Answers Where will study be performed? [facility] Radiology [120] Is the patient on [...] culture Complications: No immediate Plan/Disposition: Return to [facility] GB fossa drain to bulb suction [...] AM EST Hospital Encounter Non-Invasive [place] [id number] Arrived documented as of this encounter Procedures [...] EDT 1. ??Percutaneous placement of a 10 Barb[place] drainage catheter into gallbladder fossa abscess/biloma, yielding 120 mL of cloudy brown fluid. 2. ??Left-sided 10 Barbadian chest tube placement, yielding 30 mL of cloudy brown. Plan: 1. ??To IR recovery then transfer back to [facility]. 2. ??Awaiting return call from requesting [...] who have questions please contact the health primary care physician that requested your imaging first. ? Narrative [...] IMPRESSION 1. Percutaneous placement of a 10 Barb[place] drainage catheter intogallbladder fossa abscess/biloma, yielding 120 mL of cloudy brown fluid. 2. Left-sided 10 Barbadian chest tube placement, yielding 30 mL of cloudybrown. Plan: 1. To IR recovery then transfer back to [facility]. 2. Awaiting return call from requesting [...] patients who have questions please contactthe health primary care physician that requested your imaging first. Virginia Price DO IMG CT ORDERABLES * CT Guided Drain Chest Tube/Pleural Drain (07/10/2021 12:19 PM EDT) Anatomical Region Laterality Modality Computed Tomogra phy Impressions 07/11/2021 10:21 AM EDT 1. ??Percutaneous placement of a 10 Barb[place] drainage catheter into gallbladder fossa abscess/biloma, yielding 120 mL of cloudy brown fluid. 2. ??Left-sided 10 Barbadian chest tube placement, yielding 30 mL of cloudy brown. Plan: 1. ??To IR recovery then transfer back to [facility]. 2. ??Awaiting return call from requesting [...] who have questions please contact the health primary care physician that requested your imaging first. ? Narrative [...] IMPRESSION 1. Percutaneous placement of a 10 Barb[place] drainage catheter intogallbladder fossa abscess/biloma, yielding 120 mL of cloudy brown fluid. 2. Left-sided 10 Barbadian chest tube placement, yielding 30 mL of cloudybrown. Plan: 1. To recovery then transfer back to [facility]. 2. Awaiting return call from requesting [...] patients who have questions please contactthe health primary care physician that requested your imaging first. Virginia Price DO IMG CT ORDERABLES * Anaerobic Culture (07/10/2021 11:45 AM EDT) Anaerobic Culture No anaerobic organisms isolated [facility] Fluid 07/10/2021 11:4 5 AM EDT 07/10/2021 12:24 PM EDT Comment:Left chest tube plac ement. Narrative Resulting Agency Comment Spec In Lab Vick Boss MD MICROBIOLOGY - GEN ERAL ORDERABLES Performing Organization Address City/[facility]/ZIP Co de Phone Number [facility] [place] [address] * Body Fluid Culture, Aerobic (07/10/2021 11:45 AM EDT) Body Fluid Culture No growth [facility] Gram Stain Cytocentrifuge Gram Stain performed No Neutrophils seen. No microorganisms seen. [facility] Fluid 07/10/2021 11:4 5 AM EDT 07/10/2021 12:24 PM EDT Comment:Left chest tube plac ement. Narrative Resulting Agency Comment Spec In Lab Vick Boss MD MICROBIOLOGY - GEN ERAL ORDERABLES Performing Organization Address City/[facility]/ZIP Co de Phone Number [facility] [place] [address] * Anaerobic Culture (07/10/2021 11:20 AM EDT) Anaerobic Culture No anaerobic organisms isolated [facility] Abdominal Fluid 07/10/2021 1 1:20 AM EDT 07/10/2021 12:25 PM EDT Comment:70 y.o. male with le ukocytosis and collection on CT following cholecystectomy presenting to Interventional Radiology for drainage Narrative Resulting Agency Comment Spec In Lab Vick Boss MD MICROBIOLOGY - GEN ERAL ORDERABLES [facility] [place] [address] * (ABNORMAL) Body Fluid Culture, Aerobic (07/10/2021 11:20 AM EDT) Body Fluid Culture Few Escherichia coli(A) [facility] Gram Stain Cytocentrifuge Gram Stain performed Neutrophils seen Few Gram Negative Rods (A) [facility] Organism Escherichia coli(A) [facility] Abdominal Fluid 07/10/2021 1 1:20 [...] Boss MD MICROBIOLOGY - GEN ERAL ORDERABLES [facility] [place] [address] documented in this encounter Visit Diagnoses Diagnosis [...] mg documented in this encounter Care Teams Campaign Worker Relationship Specialty Start Date End Date Katia Stone PA [address] [place] [id number] PCP - General General Internal Medicine 11/10/18 documented as of this encounter
--- OUTSIDE RECORDS SUMMARY | 2023-12-15 13:04 | XMS_ITS | Encounter Summary ---
Author Organization [facility] Address [facility] [place] [address] Care Team Providers Care Manager Software Development Name Role Phone Katia Stone Primary Care Provider [phone] Reason for Visit * Auth/Cert (Routine) Specialty [...] OR PM) (WRVU 4.92) Dylan Story MD [facility] [place] [address] [facility] Referral ID Status Reason Start Date Expiration Date Visits Re quested Visits Authorized [id number] 1 1 Encounter Details Date Type Department Care Team (Late st Contact Info) Description 09/23/2022 12:06 PM EDT - 09/23/2022 2:36 PM EDT Surgery [place] [address] Dylan Story MD [facility] [place] [address] ELECTROPHYSIOLOGY PROCEDURE Social History Tobacco Use Types Packs/Day Years Used Date Smoking Tobacco: Never Smokeless Tobacco: Never Tobacco Cessation:Counseling Given: Not Answered Alcohol Use Standard Drinks/Week Comments Yes 14 (1 standard drink = 0.6 oz pu re alcohol) COUNTS INCLUDE 234 BEDS AT THE [facility] Inpatient Questions Answer Date Recorded Does [...] Tim Mera Patient Age: 71 y.o. Language: Nauruan Race: White Ethnicity: Not nor Admit date: 09/23/2022 Discharge date and time: 09/24/2022 1315 Attending Physician: Dylan Story MD Discharge Physician: Dylan Story MD Follow-up Recommendations for Providers: NEW - replaced [employer] dual lead pacemaker with new atrial and ventricular pacing leads. Old leads capped and abandoned. Stable for discharge to home Needs non-emergent ambulance for transport back to [facility] in [place], [place]. Outpatient follow up scheduled at [facility] for 10 post implant check. Inpatient Provider Contact Information: Cardiac Electrophysiology [phone], option #3 Discharge Diagnoses (Hospital Problems) and Secondary Diagnoses (Chronic Problems): Active Hospital Problems Diagnosis Complete heart block Pacemaker - dual lead [employer] pacemaker Resolved Hospital Problems No resolved problems to display. Operations/Major Procedures: Operations: Procedure(s): ELECTROPHYSIOLOGY PROCEDURE REMOVAL PPM GENERATOR W REPL PPM GEN; DUAL LEAD (WRVU 5.52) REPOSITIONING PREVIOUSLY PLACED ELECTRODE (ICD OR PM) (WRVU 4.92) 09/23/2022 History of Presentation: 71 y.o. male with a history of complete heart block s/p dual chamber permanent pacemaker April 2017 at [facility] course complicated by both pericardial effusion with [...] RV pacing leads were implanted. A new [employer] pacemaker pulse generator was also implanted. [...] 106 (L): Data is abnormally low Treatments: Information Systems Security Specialist Model # Serial # Generator (New) [employer] L311 237797 Atrial Lead (New) [employer] 7841 [id number] RV Lead [employer] 7742 [id number] Old RA lead capped and abandoned Old RV lead found to have insulation deterioration and this lead was also capped and abandoned New RA and RV leads placed UnadillaEcorithm pulse generator implanted DDD @ 60/120 Discharge [...] by mouth 3 times daily. Generic drug: fjmipn-bgordqrl-kxrfyga DR 1 capsule Refills: 0 fentaNYL 12 [...] incision. Make sure to use a cloth bleaching range tender (such as a towel) in between the [...] F. The office scheduling phone number is [phone]. ARM MOVEMENT RESTRICTIONS POST-IMPLANT - Do not [...] please call the Cardiac ElectrophysiologyTriage Nurse at [phone], option 3. General Instructions Future Appointments and Orders Future Appointments and Orders Future Appointments Provider Department Dept Phone 10/04/2022 11:00 AM Maite Lozano RN Cardiology at [facility] Arrive at: Academic Records Specialist Area [phone] 12/27/2022 11:00 AM Maite Lozano RN Cardiology at [facility] Arrive at: Academic Records Specialist Area [phone] Discharge References/Attachments None Dylan Story MD [facility] [...] incision. Make sure to use a cloth bleaching range tender (such as a towel) in between the [...] F. The office scheduling phone number is [phone]. ARM MOVEMENT RESTRICTIONS POST-IMPLANT - Do not [...] please call the Cardiac ElectrophysiologyTriage Nurse at [phone], option 3. documented in this encounter Medications [...] General Information Tim Mera 1950 Medicare Number: [id number] Transport Date: 09/24/22 (PCS is valid for round trips on this date and for all repetitive trips in the 60-day range as noted below.) Origin: [place] [address] Destination: [facility] [address] [place] [address] Is the patient's stay covered under Medicare [...] is contraindicated by the patient's condition: medical record clerk required. Patient unable to tolerate seated position [...] van (i.e. seated during transport, without medical record clerk or monitoring?): No 4) In addition to complete questions 1-3 above, please select any of the following conditions that apply: *Note: supporting documentation for any boxes checked must be maintained in the patient's medical records Moderate/severe pain on movement drier attendant required Section III - Signature of [...] 09/24/2022 10:54 AM EDT Office of Care Management/Toe Closing Machine Tender Patient Name: Tim Mera : 1950 Patient is returning to a SNF bed at [facility]. [facility] arranged for a 1300hrs transport. Ambulance will need: Medicare ambulance form completed and signed (MD or Boring Machine Set Up Operator Jig RN/STERILE PROCESSING MANAGER) Copy of patient demographics [place] [facility] [place] [facility] DNR/DNI order, if active No MD to MD report necessary. Please call Nursing Report to , ask for pecan mallow dipper. Info to accompany patient: Copies of Medication Administration Records and IV sheets for past 10 days. Plan: Toe Closing Machine Tender will be available to the patient and Boring Machine Set Up Operator Jig-RN and/or Social Workerfor further assistance. Patient will be discharged to: [facility] [address] [place] [address] Paco Haider, Toe Closing Machine Tender * Humberto Ashraf PA - 09/24/2022 10:31 AM EDT Inpatient Cardiac Electrophysiology Discharge Day Note Patient Name: Tim Mera Service: EP Responsible Attending: Dylan Story MD Reason for continued hospitalization: POD#1 pacemaker pulse generator and lead replacement Active Problems: Active Hospital Problems Diagnosis Complete heart block Pacemaker - dual lead [employer] pacemaker Resolved Hospital Problems No resolved problems to display. Interval History: 71 y.o. male with a history of complete heart block s/p dual chamber permanent pacemaker April 2017 at [facility] course complicated by both pericardial effusion with [...] RV pacing leads were implanted. A new [employer] pacemaker pulse generator was also implanted. [...] Oral Daily loratadine 10 mg Oral Daily pluhim-vzmiupwl-pyezzlm DR 1 capsule Oral TID magnesium oxide [...] 0.00 - 0.04 x10(3)/mcL Pertinent Radiographic/Diagnostic Results: Information Systems Security Specialist Model # Serial # Generator (New) [employer] Sci L311 [id number] Atrial Lead (New) [employer] 7841 [id number] RV Lead [employer] 7742 741841 Old RA lead capped and abandoned Old RV lead found to have insulation deterioration and this lead was also capped and abandoned New RA and RV leads placed [employer] pulse generator implanted DDD @ 60/120 P wave: 2.2mV R wave: none above 30 Atrial impedance: 581 ohms RV impedance:777 ohms RA threshold: 0.7V @0.4ms RV threshold: 0.4V @ 0.4ms AP 38%; SOFTWARE PROJECT ENGINEER 100% No events Estimated battery longevity >8 years CXR: 09/24/2022 Left sided dual lead pacemaker 4 leads; two abandoned No pneumothorax +small bilateral pleural effusions Assessment: Tim Mera is a 71 y.o. male withhx of complete heart block, s/p dual lead [id number] at [facility], now with cell depletion, fractured atrial lead and unexpected insulation deteriorationof RV lead resulting placement of new RA and RV pacing leads along with a new pulse generator. Device function is excellent today. Plan: NEW - replaced [employer] dual lead pacemaker with new atrial and ventricular pacing leads. Old leads capped and abandoned. Stable for discharge to home Needs non-emergent ambulance for transport back to [facility] in [place], [place]. Outpatient follow up scheduled at [facility] for 10 post implant check. Provider: GIRISH Marin EP Procedural attending physician: Adiel Story MD EP Consult positional pager #[phone](EPMD) EP Device interrogation positional pager # [phone] * Rosie Ashraf RN - 09/23/2022 5:37 [...] dual chamber permanent pacemaker April 2017 at [facility] course complicated by both pericardial effusion with [...] Chest Tube/Pleural Drain 07/10/2021 Vick Boss MD [facility] RAD CT SCAN CT PERITONEAL DRAINAGE 07/10/2021 CT Guided Drain Peritoneal 07/10/2021 Vick Boss MD [facility] RAD CT SCAN LAB VALUES: Laboratory Data: Lab Results Component Value Date WBC 9.4 09/23/2022 HGB 13.1 (L) 09/23/2022 HCT 39.5 (L) 09/23/2022 MCV 104.8 (H) 09/23/2022 ASSESSMENT AND PLAN: Tim Mera is a 71 y.o. male with a history of complete heart block s/p dual chamber permanent pacemaker April 2017 at [facility] course complicated by both pericardial effusion with [...] completed. Vini Lucero MD Cardiac Electrophysiology Fellow [facility] Pager [phone] 09/23/2022 I met with the patient today [...] in agreement. Dr. Dylan Story, electrophysiology attending ([id number]) documented in this encounter Miscellaneous Notes * Care Management Discharge - Tim Casillas RN - 09/24/2022 11:30 AM EDT CARE MANAGEMENT FINAL DISCHARGE NOTE Chart reviewed, care reviewed with primary team and at interdisciplinary rounds. Patient is medically ready for discharge to [facility]. Needs for Transition of Care: Plan for discharge is: Nursing Home Facility / Swing Outpatient Agency/Support Group Needs: None Agency Referrals & Follow-up Care: Contact information for follow-up [facility] [address] [place] [id number] Transportation: ambulance Ambulance Finance Conversation Completed: 09/24/2022 Spoke to: Radha Chand HANDLE TURNER at accepting facility Verbalized Understanding: Yes Functional [...] Operative Note Patient Name: Tim Mera : [id number] MR#: [id number] Case Date: 09/23/2022 Surgeon: Surgeon(s) and Role: [...] AM EST Hospital Encounter [place] [address] Arrived Scheduled Orders Name Type Priority Associated [...] who have questions please contact the health hospice patient care secretary that requested your imaging first. ? Narrative [...] patients who have questions please contactthe health hospice patient care secretary that requested your imaging first. Dylan Story MD IMG DX ORDERABLES * EKG 12 Lead (09/23/2022 5:18 PM EDT) Ventricular rate 74 BPM MUSE SYSTEM Atrial Rate 74 BPM MUSE SYSTEM P-R Interval 168 ms MUSE SYSTEM QRS Duration 164 ms MUSE SYSTEM Q-T Interval 458 ms MUSE SYSTEM QTC Calculated (Bezet) 508 ms MUSE SYSTEM Calculated P [place] 13 degrees MUSE SYSTEM Calculated R [place] -72 degrees MUSE SYSTEM Calculated T [place] 91 degrees MUSE SYSTEM INTERPRETATION Atrial-sense d ventricular- paced rhythm Abnormal ECG No previous ECGs available Confirmed by Bro Dasilva ([id number]) on 09/24/2022 9:15:33 AM MUSE SYSTEM 09/23/2022 [...] PATIENT NAME: Tim Mera PATIENT : 1950 WATER RESOURCES ENGINEER: Dylan Story MD FELLOW: Vini Lucero MD REFERRING PROVIDER: GIRISH Rai PROCEDURE DATE: 09/23/2022 PATIENT HISTORY: Mr. Mera is a 71 year old man with a history of complete heart block status post dual chamber [employer] pacemaker in 2018 with course complicated [...] the entire procedure. LEAD AND GENERATOR DATA: Information Systems Security Specialist Model # Serial # Generator (New) Trans[employer]is L311 186023 Atrial Lead (New) [employer] 7841 [id number] RV Lead (new) [employer] 7842 7715333 REMOVED GENERATOR AND CAPPED ATRIAL LEAD: Information Systems Security Specialist Model # Serial # Generator (Explanted) Transactis L111 639420 Atrial Lead (Capped) [employer] 3830 [id number] ?? Ventricular lead (capped) Ecorithm 7742 [id number] PACE/SENSE DATA: Sensed wave (mV) Threshold (V) [...] with new A and V leads (cpt 81344) Dylan Story MD S Cardiac Electrophysiology 09/24/2022 1:57 PM Procedure Note Dylan Story MD - 09/27/2022 Images from the original note were not included. PACEMAKER GENERATOR CHANGE AND REVISION OF RA AND RV LEADS PATIENT NAME: Tim Mera PATIENT : 1950 WATER RESOURCES ENGINEER: Dylan Story MD FELLOW: Vini Lucero MD REFERRING PROVIDER: GIRISH Rai PROCEDURE DATE: 09/23/2022 PATIENT HISTORY: Mr. Mera is a 71 year old man with a history of complete heart blockstatus post dual chamber [employer] pacemaker in 2018 with coursecomplicated by [...] he now presents for generatorreplacement (device tripped DIONICOI 07/10/22), implantation of new atrial lead,capping of [...] the entire procedure. LEAD AND GENERATOR DATA: Information Systems Security Specialist Model # Serial # Generator (New) [employer] L311 228909 Atrial Lead (New) [employer] 7841 9663519 RV Lead (new) [employer] 7842 8975511 REMOVED GENERATOR AND CAPPED ATRIAL LEAD: Information Systems Security Specialist Model # Serial # Generator (Explanted) [employer] L111 945803 Atrial Lead (Capped) [employer] 3830 [id number] Ventricular lead (capped) Ecorithm 7742 [id number] PACE/SENSE DATA: Sensed wave (mV) Threshold (V) [...] pacemaker with new A and V leads(cpt 46337) Dylan Story MD [facility] Cardiac Electrophysiology 09/24/2022 1:57 PM Dylan Story MD EP PROCEDURE ORDERAB LES * (ABNORMAL) Differential, Automated (09/23/2022 12:05 PM EDT) Neutrophil % 62.1 % [facility] Neutrophil Absolute 5.82 1.70 - 6.10 x10(3)/mc L [facility] Lymph % 22.3 % [facility] Lymphocytes Abs 2.1 0.9 - 3.2 x10(3)/mc L [facility] Monocyte % 11.8 % [facility] Monocyte Abs 1.1(H) 0.3 - 0.9 x10(3)/mc L [facility] Eos % 2.1 % [facility] Eosinophils Abs 0.2 0.0 - 0.4 x10(3)/mc L [facility] Basophil % 1.1 % [facility] Baso Absolute 0.1 0.0 - 0.1 x10(3)/mc L [facility] Immature Gran % 0.60 % [facility] Comment: Immature granulocytes(IG's)percentage and absolute count will include metamyelocytes, myelocytes, and promyelocytes. Blood smears from CBCs yielding IG's will be scanned manually for concordance. If this scan disagrees with the automated IG or if promyelocytes are noted, a manual differential will be performed. Immature Gran Absolute 0.06(H) 0.00 - 0.04 x10(3)/mc L [facility] Blood 09/23/2022 12:0 5 PM EDT 09/23/2022 12:25 PM EDT Narrative Resulting Agency Comment Spec In Lab Dylan Story MD HEMATOLOGY ORDERABLE S [facility] [place] [address] * (ABNORMAL) Hemogram (09/23/2022 12:05 PM EDT) White Blood Cell 9.4 4.0 - 9.5 x10(3)/mc L [facility] Red Blood Cell 3.77(L) 4.58 - 5.54 x10(6)/mc L [facility] Hemoglobin 13.1(L) 13.7 - 16.5 g/dL [facility] Hematocrit 39.5(L) 40.5 - 48.5 % [facility] Mean Cell Volume 104.8(H) 82.9 - 93.1 fL [facility] Mean Cell Hemoglobin 34.7(H) 27.5 - 32.1 pg [facility] Mean Cell Hemoglobin Concentration 33.2 32.0 - 35.7 g/dL [facility] Platelet 276 145 - 357 x10(3)/mc L [facility] RDW Standard Deviation 47.7(H) 36.0 - 45.0 fL [facility] RDW coefficient of variation 12.3 11.4 - 13.8 % [facility] Mean Platelet Volume 10.4 7.6 - 12.9 fL [facility] NRBC% auto 0.0 % [facility] NRBC Absolute 0.000 0.000 - 0.000 x10(3)/mc L [facility] Blood 09/23/2022 12:0 5 PM EDT 09/23/2022 12:25 PM EDT Narrative Resulting Agency Comment Spec In Lab Dylan Story MD HEMATOLOGY ORDERABLE S Performing Organization Address City/[facility]/ZIP Co de Phone Number [facility] [place] [address] * (ABNORMAL) Basic Metabolic Panel (non-fasting) (09/23/2022 12:05 PM EDT) Glucose 106 65 - 199 mg/dL [facility] Comment:Diabetes: >=200 mg/d L plus symptoms Blood Urea Nitrogen 8(L) 10 - 20 mg/dL [facility] Creatinine 0.58(L) 0.80 - 1.50 mg/dL [facility] Sodium 130(L) 135 - 145 mmol/L [facility] Potassium 5.0 3.5 - 5.0 mmol/L [facility] Comment: Please note: ??Patients with WBC >100,000 may have falsely elevated Potassium levels. ??For accurate Potassium quantification in these patients send serum separator tube (gold top) for subsequent determinations. ??Contact the Clinical Chemistry Laboratory if there are any questions. Chloride 95(L) 98 - 107 mmol/L [facility] Carbon Dioxide 25 22 - 31 mmol/L [facility] Anion Gap 10 5 - 15 mmol/L [facility] Calcium 9.3 8.5 - 10.5 mg/dL [facility] Est Glomerular Filtration Rate 104 >=60 mL/min/1. 73 m?? [facility] Comment: This patient's estimated GFR was [...] In Lab Dylan Story MD CHEMISTRY ORDERABLES [facility] [place] [address] documented in this encounter Visit Diagnoses Diagnosis [...] Given 09/23/2022 2:11 PM EDT 400 mg bzbrim-pvcvuezq-hpurklp DR (Creon 24) 24,000-76,000 -120,000 unit per [...] 1411 (Given - Provider: Vini Lucero MD) blhecx-aymmecme-xiyrtmq DR (Creon 24) 24,000-76,000 -120,000 unit per [...] Marie Maki RN) 0841 (Given - Provider: Menyd Briscoe RN) metoprolol succinate XL (Toprol-XL) tablet [...] Routine documented in this encounter Care Teams Manager Software Development Relationship Specialty Start Date End Date Katia Stone PA [address] [place] [address] PCP - General General Internal Medicine 11/10/18 documented as of this encounter
--- OUTSIDE RECORDS SUMMARY | 2023-12-15 13:04 | XMS_ITS | Encounter Summary ---
Author Organization [facility] Address [facility] [place] [address] Care Team Providers Care Furniture Upholsterer Apprentice Name Role Phone Katia Stone Primary Care Provider [phone] Encounter Details Date Type Department Care Team (Late st Contact Info) Description 07/22/2022 Orders Only Cardiology at [address] [phone] Humberto Ashraf PA [facility] [place] [address] Social History Tobacco Use Types Packs/Day Years Used Date Smoking Tobacco: Never Assessed Sex and Gender Information Value Date Recorded Sex Assigned at Not on file Gender Identity Not on file Sexual Orientation Not on file documented as of this encounter Progress Notes * Humberto Ashraf PA - 07/22/2022 3:02 PM EDT Cardiac Electrophysiology 71yo man with hx of CHB, s/p dual lead [employer] pacemaker implant implanted 04/30/2017, complicated by pericardial effusion with tamponade requiring RA lead reposition on 05/16/2020. RA lead function has continued to deteriorate with significantly elevated pacing threshold. His device has now tripped to DIONICIO on 07/10/2022. Dr. Story evaluated her device on 07/03/2022 at [facility] clinic visit and reviewed risk/benefit of PG [...] AM EST Hospital Encounter [place] [address] Arrived documented as of this encounter Visit Diagnoses Not on filedocumented in this encounter Care Teams Furniture Upholsterer Apprentice Relationship Specialty Start Date End Date Katia Stone PA [address] [place] [phone] PCP - General General Internal Medicine 11/10/18 documented as of this encounter
--- OUTSIDE RECORDS SUMMARY | 2023-12-15 13:04 | XMS_ITS | Encounter Summary ---
Author Organization [facility] Address [facility] [place] [address] Care Team Providers Care Hospice Consultant Name Role Phone Katia Stone Primary Care Provider [phone] Encounter Details Date Type Department Care Team (Latest Contact Info) Description 11/14/2021 - 11/14/2021 11:59 PM EDT Hospital Encounter [place] [address] Radha Hammond MD [facility] [place] [address] CHB (complete heart block) Discharge Disposition: Home [...] AM EST Hospital Encounter Non[place] [phone] Arrived documented as of this encounter Procedures [...] pdf document Date of transmission: 11/14/21 Device stone decorator: BSC Device type: DC PM Presenting rhythm: apvp AP 56% ICT SUPPORT AND TEST ENGINEERS 100% - no LV functional assessment in [...] documented in this encounter Care Teams Hospice Consultant Relationship Specialty Start Date End Date Katia Stone PA [address] [place] [phone] PCP - General General Internal Medicine 11/10/18 documented as of this encounter
--- OUTSIDE RECORDS SUMMARY | 2023-12-15 13:04 | XMS_ITS | Encounter Summary ---
Author Organization [facility] Address [facility] [place] [place] [address] Care Team Providers Care Package Pick Up Name Role Phone Katia Stone Primary Care Provider [phone] Encounter Details Date Type Department Care Team (Latest Contact Info) Description 08/13/2022 10:00 AM EDT - 08/13/2022 11:59 PM EDT Hospital Encounter [place] [address] Discharge Disposition: Home Social History Tobacco Use [...] AM EST Hospital Encounter Non[place] [address] Arrived documented as of this encounter Procedures [...] on filedocumented in this encounter Care Teams Package Pick Up Relationship Specialty Start Date End Date Katia Stone PA [address] [place] [address] PCP - General General Internal Medicine 11/10/18 documented as of this encounter
--- OUTSIDE RECORDS SUMMARY | 2023-12-15 13:04 | XMS_ITS | Encounter Summary ---
Author Organization [facility] [place] [address] Care Team Providers Care Microscopist Name Role Phone Katia Stone Primary Care Provider [phone] Encounter Details Date Type Department Care Team (Late st Contact Info) Description 02/13/2022 Orders Only Cardiology at [address] [phone] Dylan Story MD [facility] [place] [address] Social History Tobacco Use Types Packs/Day Years [...] AM EST Hospital Encounter [place] [phone] Arrived documented as of this encounter Procedures [...] on filedocumented in this encounter Care Teams Microscopist Relationship Specialty Start Date End Date Katia Stone PA [address] [facility] [place] [address] PCP - General General Internal Medicine 11/10/18 documented as of this encounter
--- OUTSIDE RECORDS SUMMARY | 2023-12-15 13:04 | XMS_ITS | Encounter Summary ---
Author Organization Formerly [facility], [facility] Address [facility] [place] [address] Care Team Providers Care Handle Bender Name Role Phone Katia Stone Primary Care Provider [phone] Encounter Details Date Type Department Care Team (Latest Contact Info) Description 08/08/2023 10:00 AM EDT - 08/08/2023 11:59 PM EDT Hospital Encounter [place] [address] Discharge Disposition: Home Social History Tobacco Use [...] st Contact Info) Description 02/04/2024 10:00 AM [facility] Hospital Encounter [place] [address] Arrived documented as of this encounter Procedures [...] on filedocumented in this encounter Care Teams Handle Bender Relationship Specialty Start Date End Date Katia Stone PA [address] [place] [phone] PCP - General General Internal Medicine 11/10/18 documented as of this encounter
--- OUTSIDE RECORDS SUMMARY | 2023-12-15 13:04 | XMS_ITS | Encounter Summary ---
Author Organization [facility] Address [facility] [place] [address] Care Team Providers Care Electronics Lead Name Role Phone Katia Stone Primary Care Provider [phone] Encounter Details Date Type Department Care Team (Late st Contact Info) Description 07/09/2021 1:35 PM EDT Ancillary Procedure Radiology Library at [facility] [place] [phone] Nolan Beth MD [facility] [place] [address] Social History Tobacco Use Types Packs/Day Years [...] AM EST Hospital Encounter [place] [phone] Arrived documented as of this encounter Procedures Procedure Name Priority Date/Time Associated Diagnosis Comments FILM LIBRARY STORAGE ONLY CT CHEST ABDOMEN PELVIS Routine 07/09/2021 1:33 PM EDT documented in this encounter Results * Film Library- Storage Only CT Chest Abdomen Pelvis (07/09/2021 1:33 PM EDT) Narrative [facility] - 07/09/2021 1:33 PM EDT This exam is auto-finalizing. It's purpose is for storage only. Nolan Beth MD IMG FILM LIBRARY OR DERABLES DH [place], [place] documented in this encounter Visit Diagnoses Not on filedocumented in this encounter Care Teams Electronics Lead Relationship Specialty Start Date End Date Katia Stone PA [address] [place] [phone] PCP - General General Internal Medicine 11/10/18 documented as of this encounter
--- OUTSIDE RECORDS SUMMARY | 2023-12-15 13:04 | XMS_ITS | Encounter Summary ---
[place] [address] Care Team Providers Care Security Operations Center Analyst Name Role Phone Katia Stone Primary Care Provider Encounter Details Date Type Department Care Team (Late st Contact Info) Description 11/25/2019 Telephone Cardiology at [address] [phone] Gayla Ochoa, RN Social History Tobacco Use [...] is requesting acceptance of a referral to [facility] Cardiology for Tim. States that Tim normally [...] AM EST Hospital Encounter Non[place] [address] Arrived documented as of this encounter Visit Diagnoses Not on filedocumented in this encounter Care Teams Security Operations Center Analyst Relationship Specialty Start Date End Date Katia Stone PA [address] [place] [phone] PCP - General General Internal Medicine 11/10/18 documented as of this encounter
--- OUTSIDE RECORDS SUMMARY | 2023-12-15 13:04 | XMS_ITS | Encounter Summary ---
Author Organization [facility] Address [facility] [place] [address] Care Team Providers Care Divider Operator Name Role Phone Katia Stone Primary Care Provider [phone] Encounter Details Date Type Department Care Team (Latest Contact Info) Description 08/14/2021 - 08/14/2021 11:59 PM EDT Hospital Encounter [place] [phone] Dylan Story MD [facility] [place] [address] CHB (complete heart block) Discharge Disposition: Home [...] AM EST Hospital Encounter Non[place] [phone] Arrived documented as of this encounter Procedures [...] complete documented in this encounter Care Teams Divider Operator Relationship Specialty Start Date End Date Katia Stone PA [address] [place] [address] PCP - General General Internal Medicine 11/10/18 documented as of this encounter
--- OUTSIDE RECORDS SUMMARY | 2023-12-15 13:04 | XMS_ITS | Encounter Summary ---
Author Organization [facility] Address [facility] [address] Care Team Providers Care Splitter Operator Name Role Phone Katia Stone Primary Care Provider Encounter Details Date Type Department Care Team (Latest Contact Info) Description 02/09/2023 10:00 AM EST - 02/09/2023 11:59 PM [facility] Hospital Encounter Non-Invasive [place] [address] Discharge Disposition: Home Social History Tobacco Use [...] AM EST Hospital Encounter Non-Invasive [place] [address] Arrived documented as of this encounter Procedures [...] on filedocumented in this encounter Care Teams Splitter Operator Relationship Specialty Start Date End Date Katia Stone PA [address] [place] [phone] PCP - General General Internal Medicine 11/10/18 documented as of this encounter
--- OUTSIDE RECORDS SUMMARY | 2023-12-15 13:04 | XMS_ITS | Encounter Summary ---
Author Organization [facility] [place] [facility] Address [facility] [place] [address] Care Team Providers Care Co Chairman Name Role Phone Katia Stone Primary Care Provider [phone] Encounter Details Date Type Department Care Team (Late st Contact Info) Description 04/04/2022 Notes Only Cardiology at [address] [phone] Humberto Ashraf PA [facility] [place] [address] Social History Tobacco Use Types Packs/Day Years [...] pacing threshold; afib/flutter Transmission Date: 03/28/2022 Device Hospital Administrative Assistant and Type: [employer] L111 Battery Status: estimated longevity 6 months Atrial lead status: normal sensing and impedance; elevated pacing threshold(now 4.0V @ 0.4ms); known partial fx Right ventricular lead status: good Left ventricular lead status: n/a Pacin % Atrial pacing 100 % Ventricular pacing Events/Arrhythmias noted since last reset: New acutely elevated RA pacing threshold Impression: 71yo man with dual lead [employer] 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 He is followed at [facility] and has reported known atrial lead dysfunction as assessed by Dr. Story. Now as he approaches [facility], he should be evaluated for lead replacement, +/-extraction of the fractured lead. I will request follow up to be scheduled. GIRISH Marin, MPAS, DFAAPA documented in this encounter Plan of Treatment Upcoming Encounters Date Type Department Care Team (Late st Contact Info) Description 02/04/2024 10:00 AM EST Hospital Encounter Non[place] [address] Arrived documented as of this encounter Visit Diagnoses Not on filedocumented in this encounter Care Teams Co Chairman Relationship Specialty Start Date End Date Katia Stoen PA [address] [place] [phone] PCP - General General Internal Medicine 11/10/18 documented as of this encounter
--- OUTSIDE RECORDS SUMMARY | 2023-12-15 13:04 | XMS_ITS | Encounter Summary ---
Author Organization Formerly [facility] Address [facility] [place] [address] Care Team Providers Care Cover Cutter Machine Name Role Phone Katia Stone Primary Care Provider Encounter Details Date Type Department Care Team (Latest Contact Info) Description 05/10/2023 10:00 AM EST - 05/10/2023 11:59 PM [facility] Hospital Encounter Non-Invasive [place] [address] Discharge Disposition: Home Social History Tobacco Use [...] AM EST Hospital Encounter Non-Invasive [place] [address] Arrived documented as of this encounter Procedures [...] on filedocumented in this encounter Care Teams Cover Cutter Machine Relationship Specialty Start Date End Date Katia Stone PA [address] [facility] [place] [facility] [place] [address] PCP - General General Internal Medicine 11/10/18 documented as of this encounter
--- OUTSIDE RECORDS SUMMARY | 2023-12-15 13:04 | XMS_ITS | Encounter Summary ---
Author Organization Formerly [facility] Address [facility] [place] [address] Care Team Providers Care Production Line Welder Name Role Phone Katia Stone Primary Care Provider [phone] Encounter Details Date Type Department Care Team (Late st Contact Info) Description 09/11/2022 Orders Only Cardiology at [address] [phone] Dylan Story MD [facility] [place] [address] Pacemaker battery depletion; AV block Social History [...] st Contact Info) Description 02/04/2024 10:00 AM [facility] Hospital Encounter Non[place] [phone] Arrived documented as of this encounter Results * (ABNORMAL) Basic Metabolic Panel (non-fasting) (09/23/2022 12:05 PM EDT) [facility] Glucose 106 65 - 199 mg/dL [facility] Comment:Diabetes: >=200 mg/d L plus symptoms Blood Urea Nitrogen 8(L) 10 - 20 mg/dL [facility] Creatinine 0.58(L) 0.80 - 1.50 mg/dL [facility] Sodium 130(L) 135 - 145 mmol/L [facility] Potassium 5.0 3.5 - 5.0 mmol/L [facility] Comment: Please note: ??Patients with WBC >100,000 may have falsely elevated Potassium levels. ??For accurate Potassium quantification in these patients send serum separator tube (gold top) for subsequent determinations. ??Contact the Clinical Chemistry Laboratory if there are any questions. Chloride 95(L) 98 - 107 mmol/L [facility] Carbon Dioxide 25 22 - 31 mmol/L [facility] Anion Gap 10 5 - 15 mmol/L [facility] Calcium 9.3 8.5 - 10.5 mg/dL [facility] Est Glomerular Filtration Rate 104 >=60 mL/min/1. 73 m?? [facility] Comment: This patient's estimated GFR [...] MD CHEMISTRY ORDERABLES Performing Organization Address City/State/[facility] Co de Phone Number [facility] [place] [address] documented in this encounter Visit Diagnoses Diagnosis Pacemaker battery depletion Fitting and adjustment of cardiac pacemaker AV block Atrioventricular block, unspecified documented in this encounter Care Teams Production Line Welder Relationship Specialty Start Date End Date Katia Stone PA [address] [place] [phone] PCP - General General Internal Medicine 11/10/18 documented as of this encounter
--- OUTSIDE RECORDS SUMMARY | 2023-12-15 13:04 | XMS_ITS | Encounter Summary ---
Author Organization [facility] Address [facility] [place] [address] Care Team Providers Care Dry Drug Worker Name Role Phone Katia Stone Primary Care Provider Encounter Details Date Type Department Care Team (Latest Contact Info) Description 06/26/2021 3:30 PM EDT Ancillary Procedure Radiology Library at [facility] [place] [address] Mykel Stern [facility] [place] [address] Gallbladder abscess Social History Tobacco Use Types [...] PRE-PROCEDURE NOTE: PCP: GIRISH Johnson Referring Provider: [facility] General Surgery: Virginia Price DO Planned [...] History was communicated by Dr. Price from [facility]. They are requesting a gallbladder fossa [...] and left basilar pleural collection presenting to [facility] for ct guided abdominal and left pleural drian placement. Plan: Planned procedure: CT guided RUQ abdominal drain and left chest tube placement Labs to be performed day of procedure: Hemogram; INR; Coags (need to be faxed from [facility]) Sedation: Moderate (Conscious sedation) Prophylactic antibiotic [...] AM EST Hospital Encounter Non-[place] [address] Arrived documented as of this encounter Procedures Procedure Name Priority Date/Time Associated Diagnosis Comments FILM LIBRARY STORAGE ONLY CT ABDOMEN AND PELVIS Routine 06/26/2021 3:25 PM EDT documented in this encounter Results * Film Library- Storage Only CT Abdomen & Pelvis (06/26/2021 3:25 PM EDT) Narrative [facility] - 06/26/2021 3:25 PM EDT This exam is auto-finalizing. It's purpose is for storage only. Mykel Stern DO IMShaun FILM LIBRARY ORD ERABLES Performing Organization Address City/State/[facility] Co de Phone Number [place], [place] documented in this encounter Visit Diagnoses Diagnosis Gallbladder abscess Acute cholecystitis documented in this encounter Care Teams Dry Drug Worker Relationship Specialty Start Date End Date Katia Stone PA [facility] [address] [place] [address] PCP - General General Internal Medicine 11/10/18 documented as of this encounter
--- OUTSIDE RECORDS SUMMARY | 2023-12-15 13:04 | XMS_ITS | Encounter Summary ---
Author Organization [facility]ly [facility] [place] [address] Care Team Providers Care Physician In Private Practice Name Role Phone Katia Stone Primary Care Provider [phone] Reason for Visit * Auth/Cert (Routine) Specialty [...] OR PM) (WRVU 4.92) Dylan Story MD [facility] [place] [address] [facility] Referral ID Status Reason Start Date Expiration Date Visits Re quested Visits Authorized [id number] 1 1 Encounter Details Date Type Department Care Team (Late st Contact Info) Description 09/23/2022 1:23 PM EDT Anesthesia Event [place]rophys[place] [address] Alida Lopez MD [facility] [place] [address] Anesthesia Record Procedure Summary Procedure Name Responsible [...] 1012; metacarpal vein (top of hand), left; [id number] catheter system; 22 gauge; OSH; 09/23/22; 1307 07/10/21 1012 by Marilyn Duncan RN 09/23/22 1307 by Jessica Sandhu RN (RETIRED) Peripheral IV Line - Single Lumen 09/23/22; 1307; metacarpal vein (top of hand), left; [id number]-[id number] catheter system; Anatomical Landmarks; 20 gauge; anes; [...] Room / Location: EP B-LAB ROOM / [facility] EP LABS Anesthesia Start: 1323 Anesthesia [...] All Anesthesia Providers: Anesthesiologist: Alida Lopez MD PRACTICAL NURSING INSTRUCTOR: Jill Ríos CRNA Vitals Value Taken Time BP 125/94 09/23/22 1715 Temp 36.4 ??C (97.5 ??F) 09/23/22 1634 Pulse 73 09/23/22 1722 Resp 20 09/23/22 1722 SpO2 92 % 09/23/22 1722 Pain Level 10 09/23/22 1720 Vitals shown include unvalidated device data. [facility] Level of Consciousness: Conscious but Sleepy [...] Chest Tube/Pleural Drain 07/10/2021 Vick Boss MD [facility] RAD CT SCAN ??? CT PERITONEAL DRAINAGE 07/10/2021 CT Guided Drain Peritoneal 07/10/2021 Vick Boss MD [facility] RAD CT SCAN Social History Tobacco [...] risks discussed with patient. Plan discussed with PRACTICAL NURSING INSTRUCTOR and attending. Anesthesia Screening documented in this encounter Plan of Treatment Upcoming Encounters Date Type Department Care Team (Late st Contact Info) Description 02/04/2024 10:00 AM [facility] Hospital Encounter [place] [address] Arrived documented as of this [...] mg documented in this encounter Care Teams Physician In Private Practice Relationship Specialty Start Date End Date Katia Stone PA [address] [place] [phone] PCP - General General Internal Medicine 11/10/18 documented as of this encounter
--- OUTSIDE RECORDS SUMMARY | 2023-12-15 13:04 | XMS_ITS | Encounter Summary ---
Author Organization [facility] Address [facility] [place] [address] Care Team Providers Care Box Car Checker Name Role Phone Katia Stone Primary Care Provider [phone] Reason for Visit * Auth/Cert (Routine) Specialty [...] OR PM) (WRVU 4.92) Dylan Story MD [facility] [place] [address] [facility] Referral ID Status Reason Start Date Expiration Date Visits Re quested Visits Authorized [id number] 1 1 Encounter Details Date Type Department Care Team (Latest Contact Info) Description 09/23/2022 11:49 AM EDT - 09/24/2022 1:21 PM EDT Hospital Encounter Heart and Vascular Unit Level 4 [place] [id number] Dylan Story MD [facility] [place] [address] Pacemaker at end of battery life; Pacemaker [...] Tim Mera Patient Age: 71 y.o. Language: Thai Race: White Ethnicity: Not nor Admit date: 09/23/2022 Discharge date and time: 09/24/2022 1315 Attending Physician: Dylan Story MD Discharge Physician: Dylan Story MD Follow-up Recommendations for Providers: NEW - replaced [employer] dual lead pacemaker with new atrial and ventricular pacing leads. Old leads capped and abandoned. Stable for discharge to home Needs non-emergent ambulance for transport back to [facility] in [place], [place]. Outpatient follow up scheduled at [facility] for 10 post implant check. Inpatient Provider Contact Information: Cardiac Electrophysiology [phone], option #3 Discharge Diagnoses (Hospital Problems) and Secondary Diagnoses (Chronic Problems): Active Hospital Problems Diagnosis Complete heart block Pacemaker - dual lead [employer] pacemaker Resolved Hospital Problems No resolved problems to display. Operations/Major Procedures: Operations: Procedure(s): ELECTROPHYSIOLOGY PROCEDURE REMOVAL PPM GENERATOR W REPL PPM GEN; DUAL LEAD (WRVU 5.52) REPOSITIONING PREVIOUSLY PLACED ELECTRODE (ICD OR PM) (WRVU 4.92) 09/23/2022 History of Presentation: 71 y.o. male with a history of complete heart block s/p dual chamber permanent pacemaker April 2017 at [facility] course complicated by both pericardial effusion [...] RV pacing leads were implanted. A new [employer] pacemaker pulse generator was also implanted. [...] 106 (L): Data is abnormally low Treatments: Conductor And Engineer Model # Serial # Generator (New) S[employer] Tasted Menu [id number] [id number] Atrial Lead (New) [employer] Sci [id number] [id number] RV Lead [employer] 7742 024027 Old RA lead capped and abandoned Old RV lead found to have insulation deterioration and this lead was also capped and abandoned New RA and RV leads placed [employer] pulse generator implanted DDD @ 60/120 Discharge [...] by mouth 3 times daily. Generic drug: bxmran-xvgzzngp-dnyjilf DR 1 capsule Refills: 0 fentaNYL 12 [...] incision. Make sure to use a cloth tester (such as a towel) in between the [...] F. The office scheduling phone number is [phone]. ARM MOVEMENT RESTRICTIONS POST-IMPLANT - Do not [...] please call the Cardiac ElectrophysiologyTriage Nurse at [phone], option 3. General Instructions Future Appointments and Orders Future Appointments and Orders Future Appointments Provider Department Dept Phone 10/04/2022 11:00 AM Maite Lozano RN [facility] [facility] [place] at: [facility] [phone] 12/27/2022 11:00 AM Maite Lozano RN [facility] [place] [facility] [place]rive at: [facility] [phone] Discharge References/Attachments None Dylan Story MD [facility] [...] incision. Make sure to use a cloth tester (such as a towel) in between the [...] F. The office scheduling phone number is [phone]. ARM MOVEMENT RESTRICTIONS POST-IMPLANT - Do not [...] please call the Cardiac ElectrophysiologyTriage Nurse at [phone], option 3. documented in this encounter Medications [...] General Information Tim Mera 1950 Medicare Number: [id number] Transport Date: 09/24/22 (PCS is valid for round trips on this date and for all repetitive trips in the 60-day range as noted below.) Origin: [place] [address] Destination: [facility] [address] [place] [address] Is the patient's stay covered [...] is contraindicated by the patient's condition: medical researcher required. Patient unable to tolerate seated position [...] van (i.e. seated during transport, without medical researcher or monitoring?): No 4) In addition to complete questions 1-3 above, please select any of the following conditions that apply: *Note: supporting documentation for any boxes checked must be maintained in the patient's medical records Moderate/severe pain on movement retail attendant required Section III - Signature of [...] 09/24/2022 10:54 AM EDT Office of Care Management/Poultry Packer Patient Name: Tim Mera : 1950 Patient is returning to a SNF bed at [facility]. [facility] arranged for a 1300hrs transport. Ambulance will need: Medicare ambulance form completed and signed (MD or Fixed Route Bus Operator RN/BABY SITTER) Copy of patient demographics [place] Out of Hospital DNR/DNI order, if active No MD to MD report necessary. Please call Nursing Report to , ask for powerhouse operator. Info to accompany patient: Copies of Medication Administration Records and IV sheets for past 10 days. Plan: Poultry Packer will be available to the patient and Fixed Route Bus Operator-RN and/or Social Workerfor further assistance. Patient will be discharged to: [facility] [address] [place] [address] Holly Urbina * Humebrto Ashraf PA - 09/24/2022 10:31 AM EDT Inpatient Cardiac Electrophysiology Discharge Day Note Patient Name: Tim Mera Service: EP Responsible Attending: Dylan Story MD Reason for continued hospitalization: POD#1 pacemaker pulse generator and lead replacement Active Problems: Active Hospital Problems Diagnosis Complete heart block Pacemaker - dual lead [employer] pacemaker Resolved Hospital Problems No resolved problems to display. Interval History: 71 y.o. male with a history of complete heart block s/p dual chamber permanent pacemaker April 2017 at [facility] course complicated by both pericardial effusion [...] RV pacing leads were implanted. A new [employer] pacemaker pulse generator was also implanted. [...] Oral Daily loratadine 10 mg Oral Daily fkiohl-hjzaitqd-hmuhhkc DR 1 capsule Oral TID magnesium oxide [...] 0.00 - 0.04 x10(3)/mcL Pertinent Radiographic/Diagnostic Results: Conductor And Engineer Model # Serial # Generator (New) [employer] [id number] [id number] Atrial Lead (New) [employer] 7841 [id number] RV Lead [employer] 7742 382104 Old RA lead capped and abandoned Old RV lead found to have insulation deterioration and this lead was also capped and abandoned New RA and RV leads placed [employer] pulse generator implanted DDD @ 60/120 P wave: 2.2mV R wave: none above 30 Atrial impedance: 581 ohms RV impedance:777 ohms RA threshold: 0.7V @0.4ms RV threshold: 0.4V @ 0.4ms AP 38%; CERTIFIED OPHTHALMIC ASSISTANT 100% No events Estimated battery longevity >8 years CXR: 09/24/2022 Left sided dual lead pacemaker 4 leads; two abandoned No pneumothorax +small bilateral pleural effusions Assessment: Tim Mera is a 71 y.o. male withhx of complete heart block, s/p dual lead [id number] at [facility], now with cell depletion, fractured atrial lead and unexpected insulation deteriorationof RV lead resulting placement of new RA and RV pacing leads along with a new pulse generator. Device function is excellent today. Plan: NEW - replaced [employer] dual lead pacemaker with new atrial and ventricular pacing leads. Old leads capped and abandoned. Stable for discharge to home Needs non-emergent ambulance for transport back to [facility] in [place], [place]. Outpatient follow up scheduled at [facility] for 10 post implant check. Provider: GIRISH Marin EP Procedural attending physician: Adiel Story MD EP Consult positional pager #[phone](EPMD) EP Device interrogation positional pager # [phone] * Rosie Ashraf RN - 09/23/2022 5:37 [...] dual chamber permanent pacemaker April 2017 at [facility] course complicated by both pericardial effusion [...] MD [facility] RAD CT SCAN CT PERITONEAL DRAINAGE 07/10/2021 CT Guided Drain Peritoneal 07/10/2021 Vick Boss MD [facility] RAD CT SCAN LAB VALUES: Laboratory Data: Lab Results Component Value Date WBC 9.4 09/23/2022 HGB 13.1 (L) 09/23/2022 HCT 39.5 (L) 09/23/2022 MCV 104.8 (H) 09/23/2022 ASSESSMENT AND PLAN: Tim Mera is a 71 y.o. male with a history of complete heart block s/p dual chamber permanent pacemaker April 2017 at [facility] course complicated by both pericardial effusion [...] completed. Vini Lucero MD Cardiac Electrophysiology Fellow [facility] Pager [phone] 09/23/2022 I met with the patient today [...] in agreement. Dr. Dylan Story, electrophysiology attending ([id number]) documented in this encounter Miscellaneous Notes * Care Management Discharge - Tim Casillas RN - 09/24/2022 11:30 AM EDT CARE MANAGEMENT FINAL DISCHARGE NOTE Chart reviewed, care reviewed with primary team and at interdisciplinary rounds. Patient is medically ready for discharge to [facility]. Needs for Transition of Care: Plan for discharge is: Assisted Facility / Swing Outpatient Agency/Support Group Needs: None Agency Referrals & Follow-up Care: Contact information for follow-up [facility] [address] [place] [address] Transportation: ambulance Ambulance Finance Conversation Completed: 09/24/2022 Spoke to: Radha Chand STAFF SONOGRAPHER at accepting facility Verbalized Understanding: Yes Functional [...] Operative Note Patient Name: Tim Mera : [id number] MR#: [id number] Case Date: 09/23/2022 Surgeon: Surgeon(s) and Role: [...] AM EST Hospital Encounter [place] [address] Arrived Scheduled Orders Name Type [...] have questions please contact the health healthcare marketer that requested your imaging first. ? Electronically signed by: Denilson Puentes MD, [facility] ([phone]), at 09/24/2022 8:47 AM Narrative 09/24/2022 8:47 [...] who have questions please contactthe health healthcare marketer that requested your imaging first. Electronically signed by: Denilson Puentes MD, [facility]([phone]), at 09/24/2022 8:47 AM Dylan Story MD IMG DX ORDERABLES * EKG 12 Lead (09/23/2022 5:18 PM EDT) Ventricular rate 74 BPM MUSE SYSTEM Atrial Rate 74 BPM MUSE SYSTEM P-R Interval 168 ms MUSE SYSTEM QRS Duration 164 ms MUSE SYSTEM Q-T Interval 458 ms MUSE SYSTEM QTC Calculated (Bezet) 508 ms MUSE SYSTEM Calculated P Leo 13 degrees MUSE SYSTEM Calculated R Leo -72 degrees MUSE SYSTEM Calculated T Leo 91 degrees MUSE SYSTEM INTERPRETATION Atrial-sense d ventricular- paced rhythm Abnormal ECG No previous ECGs available Confirmed by Bro Dasilva ([id number]) on 09/24/2022 9:15:33 AM MUSE SYSTEM 09/23/2022 [...] PATIENT NAME: Tim Mera PATIENT : 1950 PROGRAM MANAGEMENT SPECIALIST: Dylan Story MD FELLOW: Vini Lucero MD REFERRING PROVIDER: GIRISH Rai PROCEDURE DATE: 09/23/2022 PATIENT HISTORY: Mr. Mera is a 71 year old man with a history of complete heart block status post dual chamber [employer] pacemaker in 2018 with course complicated [...] the entire procedure. LEAD AND GENERATOR DATA: Conductor And Engineer Model # Serial # Generator (New) [employer] L311 [id number] Atrial Lead (New) [employer] Tasted Menu 7841 [id number] RV Lead (new) [employer] Sci 7842 [id number] REMOVED GENERATOR AND CAPPED ATRIAL LEAD: Conductor And Engineer Model # Serial # Generator (Explanted) [employer] L111 109794 Atrial Lead (Capped) Smart [employer] 3830 [id number] ?? Ventricular lead (capped) [employer] 7742 [id number] PACE/SENSE DATA: Sensed wave (mV) Threshold (V) [...] with new A and V leads (cpt 05837) Dylan Story MD S Cardiac Electrophysiology 09/24/2022 1:57 PM Procedure Note Dylan Story MD - 09/27/2022 Images from the original note were not included. PACEMAKER GENERATOR CHANGE AND REVISION OF RA AND RV LEADS PATIENT NAME: Tim Mera PATIENT : 1950 PROGRAM MANAGEMENT SPECIALIST: Dylan Story MD FELLOW: Vini Lucero MD REFERRING PROVIDER: GIRISH Rai PROCEDURE DATE: 09/23/2022 PATIENT HISTORY: Mr. Mera is a 71 year old man with a history of complete heart blockstatus post dual chamber [employer] pacemaker in 2018 with coursecomplicated by [...] the entire procedure. LEAD AND GENERATOR DATA: Conductor And Engineer Model # Serial # Generator (New) [employer] Tasted Menu L311 [id number] Atrial Lead (New) [employer] Sci 7841 [id number] RV Lead (new) [employer] 7842 [id number] REMOVED GENERATOR AND CAPPED ATRIAL LEAD: Conductor And Engineer Model # Serial # Generator (Explanted) [employer] Tasted Menu L111 105234 Atrial Lead (Capped) Med[employer]onic 3830 [id number] Ventricular lead (capped) [employer] 7742 088248 PACE/SENSE DATA: Sensed wave (mV) Threshold (V) [...] pacemaker with new A and V leads(cpt 89670) Dylan Story MD S Cardiac Electrophysiology 09/24/2022 1:57 PM Dylan Story MD EP PROCEDURE ORDERAB LES * (ABNORMAL) Differential, Automated (09/23/2022 12:05 PM EDT) Neutrophil % 62.1 % [facility] Neutrophil Absolute 5.82 1.70 - 6.10 x10(3)/mc L [facility] Lymph % 22.3 % [facility] Lymphocytes Abs 2.1 0.9 - 3.2 x10(3)/mc L [facility] Monocyte % 11.8 % [facility] Monocyte Abs 1.1(H) 0.3 - 0.9 x10(3)/mc L [facility] Eos % 2.1 % [facility] Eosinophils Abs 0.2 0.0 - 0.4 x10(3)/mc L [facility] Basophil % 1.1 % [facility] Baso Absolute 0.1 0.0 - 0.1 x10(3)/mc L [facility] Immature Gran % 0.60 % [facility] Comment: Immature granulocytes(IG's)percentage and absolute count will include metamyelocytes, myelocytes, and promyelocytes. Blood smears from CBCs yielding IG's will be scanned manually for concordance. If this scan disagrees with the automated IG or if promyelocytes are noted, a manual differential will be performed. Immature Gran Absolute 0.06(H) 0.00 - 0.04 x10(3)/mc L [facility] Blood 09/23/2022 12:0 5 PM EDT 09/23/2022 12:25 PM EDT Narrative Resulting Agency Comment Spec In Lab Dylan Story MD HEMATOLOGY ORDERABLE S Performing Organization Address City/[facility]/ZIP Co de Phone Number [facility] [place] [address] * (ABNORMAL) Hemogram (09/23/2022 12:05 PM EDT) White Blood Cell 9.4 4.0 - 9.5 x10(3)/[facility] Red Blood Cell 3.77(L) 4.58 - 5.54 x10(6)/[facility] Hemoglobin 13.1(L) 13.7 - 16.5 g/dL [facility] Hematocrit 39.5(L) 40.5 - 48.5 % [facility] Mean Cell Volume 104.8(H) 82.9 - 93.1 fL [facility] Mean Cell Hemoglobin 34.7(H) 27.5 - 32.1 pg [facility] Mean Cell Hemoglobin Concentration 33.2 32.0 - 35.7 g/dL [facility] Platelet 276 145 - 357 x10(3)/ L [facility] RDW Standard Deviation 47.7(H) 36.0 - 45.0 fL [facility] RDW coefficient of variation 12.3 11.4 - 13.8 % [facility] Mean Platelet Volume 10.4 7.6 - 12.9 fL [facility] NRBC% auto 0.0 % [facility] NRBC Absolute 0.000 0.000 - 0.000 x10(3)/mc L [facility] Blood 09/23/2022 12:0 5 PM EDT 09/23/2022 12:25 PM EDT Narrative Resulting Agency Comment Spec In Lab Dylan Story MD HEMATOLOGY ORDERABLE S Performing Organization Address City/[facility]/ZIP Co de Phone Number [facility] [place] [address] * (ABNORMAL) Basic Metabolic Panel (non-fasting) (09/23/2022 12:05 PM EDT) Glucose 106 65 - 199 mg/dL [facility] Comment:Diabetes: >=200 mg/d L plus symptoms Blood Urea Nitrogen 8(L) 10 - 20 mg/dL [facility] Creatinine 0.58(L) 0.80 - 1.50 mg/dL [facility] Sodium 130(L) 135 - 145 mmol/L [facility] Potassium 5.0 3.5 - 5.0 mmol/L [facility] Comment: Please note: ??Patients with WBC >100,000 may have falsely elevated Potassium levels. ??For accurate Potassium quantification in these patients send serum separator tube (gold top) for subsequent determinations. ??Contact the Clinical Chemistry Laboratory if there are any questions. Chloride 95(L) 98 - 107 mmol/L [facility] Carbon Dioxide 25 22 - 31 mmol/L [facility] Anion Gap 10 5 - 15 mmol/L [facility] Calcium 9.3 8.5 - 10.5 mg/dL [facility] Est Glomerular Filtration Rate 104 >=60 mL/min/1. 73 m?? [facility] Comment: This patient's estimated GFR was [...] In Lab Dylan Story MD CHEMISTRY ORDERABLES [facility] [place] [address] documented in this encounter Visit Diagnoses Diagnosis Complete heart block- Primary Atrioventricular block, complete Pacemaker at end of battery life Fitting and adjustment of cardiac pacemaker Pacemaker battery depletion Fitting and adjustment of cardiac pacemaker AV block Atrioventricular block, unspecified Complete heart block Atrioventricular block, complete Pacemaker - dual lead [employer] pacemaker Cardiac pacemaker in situ Pacemaker [...] Given 09/23/2022 2:11 PM EDT 400 mg vqlvqk-scmmdnnm-vhlhnbx DR (Creon 24) 24,000-76,000 -120,000 unit per [...] 1411 (Given - Provider: Vini Lucero MD) zbakqj-oydiqenf-jroywyu DR (Creon 24) 24,000-76,000 -120,000 unit per [...] Routine 0840 (Given - Provid er: Mendy Brisoce RN) polyethylene glycoL (Miralax) packet 17 g [...] Routine documented in this encounter Care Teams Box Car Checker Relationship Specialty Start Date End Date Katia Stone PA [address] [place] [phone] PCP - General General Internal Medicine 11/10/18 documented as of this encounter
--- OUTSIDE RECORDS SUMMARY | 2023-12-15 13:04 | XMS_ITS | Encounter Summary ---
Author Organization [facility] [place] [address] Care Team Providers Care Meatman Name Role Phone Katia Stone Primary Care Provider Encounter Details Date Type Department Care Team (Late st Contact Info) Description 07/23/2021 [place] [phone] Mykel Stern, [facility] [place] [address] Social History Tobacco Use Types Packs/Day Years [...] were requested by Dr. Virginia Price of [facility]. Unclear follow up in our system; [...] Chest Tube/Pleural Drain 07/10/2021 Vick Boss MD [facility] RAD CT SCAN ??? CT PERITONEAL DRAINAGE 07/10/2021 CT Guided Drain Peritoneal 07/10/2021 Vick Boss MD [facility] RAD CT SCAN Medications: Allergies: Patient [...] st Contact Info) Description 02/04/2024 10:00 [facility] [place] [address] Arrived documented as of this encounter Visit Diagnoses Not on filedocumented in this encounter Care Teams Meatman Relationship Specialty Start Date End Date Katia Stone PA [facility] [address] [place] [address] PCP - General General Internal Medicine 11/10/18 documented as of this encounter
--- OUTSIDE RECORDS SUMMARY | 2023-12-15 13:04 | XMS_ITS | Encounter Summary ---
Author Organization [facility] Address [facility] [place] [place] [address] Care Team Providers Care Vice President Of News Name Role Phone Katia Stone Primary Care Provider Encounter Details Date Type Department Care Team (Latest Contact Info) Description 11/11/2022 10:00 AM EDT - 11/11/2022 11:59 PM EDT Hospital Encounter [place] [address] Discharge Disposition: Home Social History Tobacco Use [...] st Contact Info) Description 02/04/2024 10:[address] [facility] Hospital Encounter [place] [address] Arrived documented as of this encounter Procedures [...] on filedocumented in this encounter Care Teams Vice President Of News Relationship Specialty Start Date End Date Katia Stone PA [address] [place] [phone] PCP - General General Internal Medicine 11/10/18 documented as of this encounter
--- OUTSIDE RECORDS SUMMARY | 2023-12-15 13:04 | XMS_ITS | Encounter Summary ---
Author Organization [facility] Address [facility] [place] [address] Care Team Providers Care Bulb Sorter Name Role Phone Katia Stone Primary Care Provider [phone] Encounter Details Date Type Department Care Team (Latest Contact Info) Description 02/09/2023 10:00 AM [facility] Hospital Encounter [place] [address] Discharge Disposition: Home Social History Tobacco Use [...] AM EST Hospital Encounter Non[place] [address] Arrived documented as of this encounter Visit Diagnoses Not on filedocumented in this encounter Care Teams Bulb Sorter Relationship Specialty Start Date End Date Katia Stone PA [facility] [address] [place] [phone] PCP - General General Internal Medicine 11/10/18 documented as of this encounter
[2023-12-15] MEDS: Aspirin 325 MG TAB PO (13:39)
[2023-12-15] MEDS: Atorvastatin 40 MG TAB 80 MG PO (13:40)
[2023-12-15 14:18] LABS: Troponin I 15 ng/L (<or=76)
--- OUTSIDE RECORDS SUMMARY | 2023-12-15 14:22 | XMS_ITS | Clinical Summary ---
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 Hypertensive urgency 05/01/2017 Heart block AV third degree ([facility]) 04/30/2017 Resolved Problems Problem Noted Date Diagnosed Date Resolved Date Acute on chronic diastolic c ongestive heart failure ([facility]) 05/01/2017 05/27/2017 Surgical History Surgery Date Site/Laterality Comments PACEMAKER PLACEMENT 03/03/2017 - 03/02/2018 OTHER SURGICAL HISTORY 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 Also lead [...] many all messed up Complete heart block ([facility]) 0 06/19/20 now has pacemaker with infected lead CAD (coronary artery disease) per pt Community acquired pneumonia pt states i get pneumonia every year - feels like he has it now - had a collapsed lung whoel pacer issues per pt - [employer] office aware Family History Medical History Relation [...] season) 2023 Medical Devices Implanted Type Area Tub Chucker Device Identifier Shelf Expiration Date Model / Serial / Lot [id number] [facility] - [id number] Implanted:05/02 (Quantity not on file) Lead [employer] 7742 [facility] / [id number] / Description:Implant record l oaded by IMP Chronicles import. 3830 Selectsecure Mri Surescan - [id number] Implanted:05/21 (Quantity not on file) Lead Medtronic 3830 SELECTSECURE MRI SURESCAN / [id number] / Description:Implant record l oaded by IMP Chronicles import. L111 Essentio Mri - [id number] Implanted:05/02 (Quantity not on file) Pacemaker [employer] L111 ESSENTIO MRI / [id number] / Description:Implant record l oaded by IMP Chronicles import. Advance Directives For more information, please contact: [phone] * Full Code (Latest Code Status on [...] the discussion? Not Discusse d Care Teams Panelboard Tank Pumper Relationship Specialty Start Date End Date Katia Stone, MINGO [address] [place] [phone] PCP - General 05/02/17
--- OUTSIDE RECORDS SUMMARY | 2023-12-15 14:22 | XMS_ITS | Referral Summary ---
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 3830 Selectsecure Mri Surescan - [id number] Implanted:05/21 (Quantity not on file) Lead Medtronic 3830 SELECTSECURE MRI SURESCAN / [id number] / Description:Implant record l oaded by IMP Chronicles import. L111 Essentio Mri - [id number] Implanted:05/02 (Quantity not on file) Pacemaker [employer] [employer] L111 ESSENTIO MRI / [id number] / Description:Implant record l oaded by IMP Chronicles import. Advance Directives For more information, please contact: [phone] * Full Code (Latest Code Status on [...] the discussion? Not Discusse d Care Teams Turbine Blade Assembler Relationship Specialty Start Date End Date Katia Stone PA-C [address] [place] [phone] [facility] - General 05/02/17
--- OUTSIDE RECORDS SUMMARY | 2023-12-15 14:23 | XMS_ITS | Encounter Summary ---
Author Organization [facility] Address [address] [place] [address] Care Team Providers Care Equipment Installation Professional Name Role Phone Katia Stone PA-C Primary Care Provider +1- [phone] Encounter Details Date Type Department Care Team (Late st Contact Info) Description 08/29/2020 Results Only [facility]- [facility] [phone] Rowan Abad, TAIWO [address] [place] [phone] Social History Tobacco Use Types Packs/Day [...] 08/29/2020 5:05 EDT 08/29/2020 5:23 EDT Rowan bAad NP CHEMISTRY & BLOOD GA S ORDERABLES Performing Organization Address City/[facility]/ZIP Co de Phone Number [facility] [address] [place] [address] * PLATELET COUNT (08/29/2020 5:05 EDT) PLATELET COUNT - [facility] 324 150 - 450 10 3/uL 08/29/2020 5:39 EDT [facility] 08/29/2020 5:05 EDT 08/29/2020 5:23 EDT Narrative [facility] - 08/29/2020 5:41 EDT Comment ENOXAPARIN MONITORING Rowan Abad NP HEMATOLOGY & PF4 ORD ERABLES [facility] [address] [place] [address] documented in this encounter Visit Diagnoses Not on filedocumented in this encounter Care Teams Equipment Installation Professional Relationship Specialty Start Date End Date Katia Stone, MINGO [address] [place] [phone] PCP - General 05/02/17 documented as of this encounter
--- OUTSIDE RECORDS SUMMARY | 2023-12-15 14:23 | XMS_ITS | Encounter Summary ---
Author Organization [facility] Address [address] [place] [address] Care Team Providers Care Color Checker Roving Or Yarn Name Role Phone Katia Stone PA-C Primary Care Provider +1- [phone] Encounter Details Date Type Department Care Team (Late st Contact Info) Description 08/09/2020 Results Only Imaging [facility] Radiology Results [address] [place], [place] [address] Ester Valerio MD [address] [place] [address] [place] [address] Social History Tobacco Use Types [...] 8:33 EDT Narrative 08/09/2020 16:38 EDT ?[facility]: [facility] ?[address] ?[place] [address] ?Diagnostic Imaging Report ? Signed ? Patient Name:DAVID FARFAN ? Date of :1950 ?MR Number:[id number] ? Age:69 ?Sex:M ? Category: CR ?Date [...] Procedure Note Poncho Erickson MD - [facility]09[facility] [address] [address] Diagnostic Imaging Report Signed Patient Name:DAVID FARFAN FAccount Number:[id number] Date of :1950 MRNumber:[id number] Age:69 Sex:M Category: CR Date ofExam:08/09/20 Procedure: CR: Abd; 2 ViewsAccession: [id number] Ordering Physician: Ester Valerio MD Patient CC: [...] documented as of this encounter Care Teams Color Checker Roving Or Yarn Relationship Specialty Start Date End Date Katia Stone PA-C [address] [place] [address] PCP - General 05/02/17 documented as of this encounter
--- OUTSIDE RECORDS SUMMARY | 2023-12-15 14:23 | XMS_ITS | Encounter Summary ---
Author Organization [facility] Address [address] [place] [address] Care Team Providers Care Audio Production Instructor Name Role Phone Katia Stone PA-C Primary Care Provider +1- [phone] Encounter Details Date Type Department Care Team (Late st Contact Info) Description 08/18/2020 Results Only [facility] [address] [place] [address] Junior Ray MD [address] [place] [address] Social History Tobacco Use Types [...] 138 136 - 145 mEq/L 08/18/2020 5:47 [facility] Potassium 3.3(L) 3.5 - 5.1 mEq/L 08/18/2020 5:47 [facility] Chloride 101 96 - 107 mEq/L 08/18/2020 5:47 [facility] CO2 Total 31.3 21 - 32 mEq/L 08/18/2020 5:47 [facility] Anion Gap 5.7 mEq/L 08/18/2020 5:47 [facility] BUN 9 7 - 25 mg/dl 08/18/2020 5:47 [facility] Creatinine 0.66(L) 0.70 - 1.30 mg/dl 08/18/2020 5:47 [facility] Estimated GFR >60 >60 08/18/2020 5:47 [facility] Comment: EGFR UNITS: mL/min/1.73 m 2 CKD-EPI Equation used to calculate. Glucose 86 74 - 106 mg/dl 08/18/2020 5:47 [facility] Calcium 8.0(L) 8.5 - 10.1 mg/dl 08/18/2020 5:47 [facility] 08/18/2020 5:15 EDT 08/18/2020 5:27 EDT Junior Ray MD CHEMISTRY & BLOOD G ORDERABLES Performing Organization Address City/[facility]/ZIP Co de Phone Number [facility] [address] [place] [address] * (ABNORMAL) COMPLETE BLOOD COUNT (08/18/2020 5:15 EDT) WBC 5.2 4.0 - 10.5 10 3/uL 08/18/2020 5:41 [facility] RBC 2.68(L) 4.70 - 6.00 10 6/uL 08/18/2020 5:41 [facility] Hemoglobin 9.4(L) 13.5 - 18.0 g/dL 08/18/2020 5:41 [facility] HCT 27.5(L) 42.0 - 52.0 % 08/18/2020 5:41 [facility] MCV 102.6(H) 78 - 100 fL 08/18/2020 5:41 [facility] MCH 35.1(H) 27 - 31 pg 08/18/2020 5:41 [facility] MCHC 34.2 32 - 37 g/dL 08/18/2020 5:41 [facility] RDW-CV - PMC 15.2(H) <14.7 % 08/18/2020 5:41 [facility] PLATELET COUNT - PMC 233 150 - 450 10 3/uL 08/18/2020 5:41 [facility] MPV 10.3 9.2 - 12.0 fL 08/18/2020 5:41 [facility] 08/18/2020 5:15 EDT 08/18/2020 5:27 EDT Junior Ray MD HEMATOLOGY & PF4 OR DERABLES Performing Organization Address City/[facility]/ZIP Co de Phone Number [facility] [address] [place] [address] documented in this encounter Visit Diagnoses Not on filedocumented in this encounter Care Teams Audio Production Instructor Relationship Specialty Start Date End Date Katia Stone, PABijalC [address] [place] [phone] PCP - General 05/02/17 documented as of this encounter
--- OUTSIDE RECORDS SUMMARY | 2023-12-15 14:23 | XMS_ITS | Encounter Summary ---
Author Organization [facility] Address [address] [place] [address] Care Team Providers Care Set Painter Name Role Phone Katia Stone PA-C Primary Care Provider +1- [phone] Encounter Details Date Type Department Care Team (Late st Contact Info) Description 08/08/2020 Results Only [facility] Dermatology - [facility] [place] [address] [place] [address] Virginia Quintana MD [address] [place] [address] Social History Tobacco Use Types Packs/Day Years [...] Requests ADD ON DONE 08/08/2020 21:57 EDT [facility] Comment: All tests (see tests in sample comments) have been added as requested. 08/08/2020 21:1 7 EDT 08/08/2020 21:57 EDT Narrative [facility] - 08/08/2020 21:57 EDT ED this evening Mg Virginia Quintana MD CHEMISTRY & BLOOD GA S ORDERABLES Performing Organization Address [facility] Co de Phone Number [facility] [address] [place] [address] * (ABNORMAL) MAGNESIUM (08/08/2020 16:47 EDT) Magnesium 1.7(L) 1.8 - 2.4 mg/dl 08/08/2020 22:02 EDT [facility] 08/08/2020 16:4 7 EDT 08/08/2020 16:52 EDT Virginia Quintana MD CHEMISTRY & BLOOD GA S ORDERABLES Performing Organization Address [facility] Co de Phone Number [facility] [address] [place] [address] documented in this encounter Visit Diagnoses Not on filedocumented in this encounter Care Teams Set Painter Relationship Specialty Start Date End Date Katia Stone, PABijalC [address] [place] [phone] PCP - General 05/02/17 documented as of this encounter
--- OUTSIDE RECORDS SUMMARY | 2023-12-15 14:23 | XMS_ITS | Encounter Summary ---
Author Organization [facility] Address [address] [place] [address] Care Team Providers Care Oversize Load Pilot Escort Name Role Phone Katia Stone PA-C Primary Care Provider +1- [phone] Encounter Details Date Type Department Care Team (Late st Contact Info) Description 08/17/2023 Lab Requisition [facility] Pathology & Laboratory Medicine - [address] [address] Outr Resulting Lab, Provider Social History Tobacco [...] 275 - 295 mOsm/kg 08/17/2023 16:24 EDT [facility] Blood VENOUS BLOOD / Unknown 08/16/2023 20:10 EDT 08/17/2023 16:03 EDT Provider Outr Resulting Lab CHEMISTRY & BLOOD GAS ORDERABLES [facility] [address] [place] [address] documented in this encounter Visit Diagnoses Not on filedocumented in this encounter Care Teams Oversize Load Pilot Escort Relationship Specialty Start Date End Date Katia Stone PA-C [address] [place] [phone] PCP - General 05/02/17 documented as of this encounter
--- OUTSIDE RECORDS SUMMARY | 2023-12-15 14:23 | XMS_ITS | Encounter Summary ---
Author Organization [facility] Address [address] [place] [address] Care Team Providers Care Mastic Man Name Role Phone Katia Stone PA-C Primary Care Provider +1- [phone] Encounter Details Date Type Department Care Team (Late st Contact Info) Description 08/14/2020 Results Only [facility] [address] [place] [address] Jayesh Olmos MD [address] [place] [address] Social History Tobacco Use Types [...] - 2.4 mg/dl 08/14/2020 6:19 EDT [facility] 08/14/2020 5:03 EDT 08/14/2020 5:51 EDT Jayesh Olmos MD CHEMISTRY & BLO OD GAS ORDERABLES [facility] [address] [place] [address] * (ABNORMAL) COMPREHENSIVE METABOLIC PANEL (CMP) (08/14/2020 5:03 EDT) Sodium 138 136 - 145 mEq/L 08/14/2020 6:19 EDT [facility] Potassium 3.6 3.5 - 5.1 mEq/L 08/14/2020 6:19 [facility] Chloride 103 96 - 107 mEq/L 08/14/2020 6:19 T [facility] CO2 Total 28.4 21 - 32 mEq/L 08/14/2020 6:19 T [facility] Anion Gap 6.6 mEq/L 08/14/2020 6:19 [facility] BUN 11 7 - 25 mg/dl 08/14/2020 6:19 [facility] Creatinine 0.51(L) 0.70 - 1.30 mg/dl 08/14/2020 6:19 [facility] Estimated GFR >60 >60 08/14/2020 6:19 [facility] Comment: EGFR UNITS: mL/min/1.73 m 2 CKD-EPI Equation used to calculate. Glucose 101 74 - 106 mg/dl 08/14/2020 6:19 [facility] Calcium 8.1(L) 8.5 - 10.1 mg/dl 08/14/2020 6:19 [facility] CALCIUM,CORRECTE D - PMC 9.5 8.5 - 10.5 mg/dl 08/14/2020 6:19 [facility] BILIRUBIN - PMC 0.40 0.00 - 1.00 mg/dl 08/14/2020 6:19 [facility] AST 34 15 - 37 U/L 08/14/2020 6:19 [facility] ALT 21 16 - 63 U/L 08/14/2020 6:19 [facility] Alkaline Phosphatase 102 46 - 116 U/L 08/14/2020 6:19 [facility] Total Protein 6.3(L) 6.4 - 8.2 g/dl 08/14/2020 6:19 [facility] Albumin 2.2(L) 3.4 - 5.0 g/dl 08/14/2020 6:19 [facility] GLOBULIN - PMC 4.1 g/dl 08/14/2020 6:19 [facility] ALBUMIN/GLOBULIN RATIO - PMC 0.5 08/14/2020 6:19 [facility] 08/14/2020 5:03 EDT 08/14/2020 5:51 EDT Jayesh Olmos MD CHEMISTRY & BLO OD GAS ORDERABLES [facility] [address] [place] [address] * (ABNORMAL) COMPLETE BLOOD COUNT AND DIFFERENTIAL (08/14/2020 5:03 EDT) WBC 5.1 4.0 - 10.5 10 3/uL 08/14/2020 6:06 [facility] RBC 2.76(L) 4.70 - 6.00 10 6/uL 08/14/2020 6:06 [facility] Hemoglobin 9.9(L) 13.5 - 18.0 g/dL 08/14/2020 6:06 [facility] HCT 28.7(L) 42.0 - 52.0 % 08/14/2020 6:06 [facility] MCV 104.0(H) 78 - 100 fL 08/14/2020 6:06 [facility] MCH 35.9(H) 27 - 31 pg 08/14/2020 6:06 [facility] MCHC 34.5 32 - 37 g/dL 08/14/2020 6:06 [facility] RDW-CV - PMC 15.9(H) <14.7 % 08/14/2020 6:06 [facility] PLATELET COUNT - PMC 189 150 - 450 10 3/uL 08/14/2020 6:06 [facility] MPV 10.8 9.2 - 12.0 fL 08/14/2020 6:06 [facility] NEUTROPHILS % (AUTO) - PMC 54.7 % 08/14/2020 6:06 [facility] LYMPHOCYTES % (AUTO) - PMC 23.0 % 08/14/2020 6:06 [facility] MONOCYTES % (AUTO) - PMC 18.2 % 08/14/2020 6:06 [facility] EOSINOPHILS % (AUTO) - PMC 2.5 NOT ESTABLISHED % 08/14/2020 6:06 [facility] BASOPHILS % (AUTO) - PMC 0.8 % 08/14/2020 6:06 [facility] Immature Granulocyte % (Auto) 0.8 % 08/14/2020 6:06 [facility] NUCLEATED RBC % (AUTO) - PMC 0.0 % 08/14/2020 6:06 [facility] NEUTROPHILS # (AUTO) - PMC 2.8 1.5 - 6.6 10 3/uL 08/14/2020 6:06 [facility] LYMPHOCYTES # (AUTO) - PMC 1.2 1.0 - 3.5 10 3/uL 08/14/2020 6:06 [facility] MONOCYTES # (AUTO) - PMC 0.9 <1.0 10 3/uL 08/14/2020 6:06 [facility] EOSINOPHILS # (AUTO) - PMC 0.1 <0.7 10 3/uL 08/14/2020 6:06 [facility] Absolute Immature Granulocyte 0.04 <0.06 10 3/uL 08/14/2020 6:06 [facility] DIFFERENTIAL METHOD Auto Differential 08/14/2020 5:52 [facility] 08/14/2020 5:03 EDT 08/14/2020 5:51 EDT Narrative [facility] - 08/14/2020 6:11 EDT Comment ENOXAPARIN MONITORING Jayesh Olmos MD PACKAGES & DNA PROBE ORDERABLES [facility] [address] [place] [address] documented in this encounter Visit Diagnoses Not on filedocumented in this encounter Care Teams Mastic Man Relationship Specialty Start Date End Date Katia Stone, PABijalC [address] [place] [phone] PCP - General 05/02/17 documented as of this encounter
--- OUTSIDE RECORDS SUMMARY | 2023-12-15 14:23 | XMS_ITS | Encounter Summary ---
Author Organization [facility] Address [address] [place] [address] Care Team Providers Care Education Instructor Name Role Phone Katia Stone PA-C Primary Care Provider +1- [phone] Encounter Details Date Type Department Care Team (Late st Contact Info) Description 09/10/2020 Results Only [facility] [phone] Rowan Abad, TAIWO [address] [place] [address] Social History Tobacco Use Types Packs/Day [...] * PLATELET COUNT (09/10/2020 5:40 EDT) Pathologist [facility] PLATELET COUNT - PMC 250 150 - 450 10 3/uL 09/10/2020 6:29 EDT [facility] 09/10/2020 5:40 EDT 09/10/2020 6:11 EDT Narrative [facility] - 09/10/2020 6:49 EDT Comment ENOXAPARIN MONITORING Rowan Abad NP HEMATOLOGY & PF4 ORD ERABLES Performing Organization Address City/State/[facility] Co de Phone Number [facility] [address] [place] [address] * (ABNORMAL) CREATININE WITH GFR - PMC (09/10/2020 5:40 EDT) Pathologist [facility] Creatinine 0.57(L) 0.70 - 1.30 mg/dl 09/10/2020 6:42 EDT [facility] Estimated GFR >60 >60 09/10/2020 6:42 EDT [facility] Comment: EGFR UNITS: mL/min/1.73 m 2 CKD-EPI Equation used to calculate. 09/10/2020 5:40 EDT 09/10/2020 6:11 EDT Rowan Abad NP CHEMISTRY & BLOOD GA S ORDERABLES [facility] [address] [place] [address] documented in this encounter Visit Diagnoses Not on filedocumented in this encounter Care Teams Education Instructor Relationship Specialty Start Date End Date Katia Stone, MINGO [address] [place] [phone] PCP - General 05/02/17 documented as of this encounter
--- OUTSIDE RECORDS SUMMARY | 2023-12-15 14:23 | XMS_ITS | Encounter Summary ---
Author Organization [facility] Address [address] [place] [address] Care Team Providers Care Stem Dryer Maintainer Name Role Phone Katia Stone PA-C Primary Care Provider +1- [phone] Encounter Details Date Type Department Care Team (Late st Contact Info) Description 09/26/2020 Results Only [facility] [phone] Rowan Abad, TAIWO [address] [place] [phone] Social History Tobacco Use Types Packs/Day [...] 1.8 - 2.4 mg/dl 09/26/2020 15:12 EDT [facility] 09/26/2020 14:3 3 EDT 09/26/2020 14:54 EDT Rowan Abad NP CHEMISTRY & BLOOD GA S ORDERABLES [facility] [address] [place] [address] * (ABNORMAL) BASIC METABOLIC PANEL (BMP) (09/26/2020 14:33 EDT) Sodium 131(L) 136 - 145 mEq/L 09/26/2020 15:12 EDT [facility] Potassium 4.2 3.5 - 5.1 mEq/L 09/26/2020 15:12 [facility] Chloride 96 96 - 107 mEq/L 09/26/2020 15:12 EDT [facility] CO2 Total 30.9 21 - 32 mEq/L 09/26/2020 15:12 T [facility] Anion Gap 3.1 mEq/L 09/26/2020 15:12 [facility] BUN 10 7 - 25 mg/dl 09/26/2020 15:12 [facility] Creatinine 0.82 0.70 - 1.30 mg/dl 09/26/2020 15:12 [facility] Estimated GFR >60 >60 09/26/2020 15:12 [facility] Comment: EGFR UNITS: mL/min/1.73 m 2 CKD-EPI Equation used to calculate. Glucose 111(H) 74 - 106 mg/dl 09/26/2020 15:12 [facility] Calcium 8.6 8.5 - 10.1 mg/dl 09/26/2020 15:12 [facility] 09/26/2020 14:3 3 EDT 09/26/2020 14:54 EDT Rowan Abad NP CHEMISTRY & BLOOD GA S ORDERABLES Performing Organization Address City/State/[facility] Co de Phone Number [facility] [address] [place] [address] * (ABNORMAL) COMPLETE BLOOD COUNT AND DIFFERENTIAL (09/26/2020 14:33 EDT) WBC 7.3 4.0 - 10.5 10 3/uL 09/26/2020 15:08 [facility] RBC 3.30(L) 4.70 - 6.00 10 6/uL 09/26/2020 15:08 [facility] Hemoglobin 11.2(L) 13.5 - 18.0 g/dL 09/26/2020 15:08 [facility] HCT 32.0(L) 42.0 - 52.0 % 09/26/2020 15:08 [facility] MCV 97.0 78 - 100 fL 09/26/2020 15:08 [facility] MCH 33.9(H) 27 - 31 pg 09/26/2020 15:08 [facility] MCHC 35.0 32 - 37 g/dL 09/26/2020 15:08 [facility] RDW-CV - PMC 11.7 <14.7 % 09/26/2020 15:08 [facility] PLATELET COUNT - PMC 291 150 - 450 10 3/uL 09/26/2020 15:08 [facility] MPV 11.0 9.2 - 12.0 fL 09/26/2020 15:08 [facility] NEUTROPHILS % (AUTO) - PMC 59.3 % 09/26/2020 15:08 [facility] LYMPHOCYTES % (AUTO) - PMC 23.9 % 09/26/2020 15:08 [facility] MONOCYTES % (AUTO) - PMC 12.3 % 09/26/2020 15:08 [facility] EOSINOPHILS % (AUTO) - PMC 2.9 NOT ESTABLISHED % 09/26/2020 15:08 [facility] BASOPHILS % (AUTO) - PMC 1.0 % 09/26/2020 15:08 [facility] Immature Granulocyte % (Auto) 0.6 % 09/26/2020 15:08 [facility] NUCLEATED RBC % (AUTO) - PMC 0.0 % 09/26/2020 15:08 [facility] NEUTROPHILS # (AUTO) - PMC 4.3 1.5 - 6.6 10 3/uL 09/26/2020 15:08 [facility] LYMPHOCYTES # (AUTO) - PMC 1.7 1.0 - 3.5 10 3/uL 09/26/2020 15:08 [facility] MONOCYTES # (AUTO) - PMC 0.9 <1.0 10 3/uL 09/26/2020 15:08 [facility] EOSINOPHILS # (AUTO) - PMC 0.2 <0.7 10 3/uL 09/26/2020 15:08 [facility] BASOPHILS # (AUTO) - PMC 0.1 <0.1 10 3/uL 09/26/2020 15:08 [facility] Absolute Immature Granulocyte 0.04 <0.06 10 3/uL 09/26/2020 15:08 [facility] DIFFERENTIAL METHOD Auto Differential 09/26/2020 14:56 [facility] 09/26/2020 14:3 3 EDT 09/26/2020 14:54 EDT Rowan Abad [employer]ICK [employer] ORDERABLES [facility] [address] [place] [address] documented in this encounter Visit Diagnoses Not on filedocumented in this encounter Care Teams Stem Dryer Maintainer Relationship Specialty Start Date End Date Katia Stone, [employer] [address] [place] [id number] PCP - General 05/02/17 documented as of this encounter
--- OUTSIDE RECORDS SUMMARY | 2023-12-15 14:23 | XMS_ITS | Encounter Summary ---
Author Organization [facility] Address [address] [place] [address] Care Team Providers Care Photographic Restorer Name Role Phone Katia Stone PA-C Primary Care Provider +1- [phone] Encounter Details Date Type Department Care Team (Late st Contact Info) Description 03/13/[address] [facility] Pathology & Laboratory Medicine - [address] [address] Outr Resulting Lab, Provider Social History Tobacco [...] Antigen Detection Negative Negative 03/13/2022 21:38 EST [facility] Urine URINE / Unknown 03/12/2022 1 9:15 EST 03/13/2022 17:44 EST Provider Outr Resulting Lab MICROBIOLOGY - GENERAL ORDERABLES Performing Organization Address City/State/[facility] Co de Phone Number [facility] [address] [place] [address] documented in this encounter Visit Diagnoses Not on filedocumented in this encounter Care Teams Photographic Restorer Relationship Specialty Start Date End Date Katia Stone, PABijalC [address] [place] [phone] PCP - General 05/02/17 documented as of this encounter
--- OUTSIDE RECORDS SUMMARY | 2023-12-15 14:23 | XMS_ITS | Encounter Summary ---
Author Organization [facility] Address [address] [place] [address] Care Team Providers Care Breeder Hen Service Technician Name Role Phone Katia Stone PA-C Primary Care Provider +1- [phone] Encounter Details Date Type Department Care Team (Late st Contact Info) Description 08/22/2020 Results Only [facility] [phone] Rowan Abad, TAIWO [address] [place] [phone] Social History Tobacco Use Types Packs/Day [...] 1.8 - 2.4 mg/dl 08/22/2020 6:03 T [facility] 08/22/2020 5:30 EDT 08/22/2020 5:39 EDT Rowan Abad NP CHEMISTRY & BLOOD GA S ORDERABLES [facility] [address] [place] [address] * (ABNORMAL) BASIC METABOLIC PANEL (BMP) (08/22/2020 5:30 EDT) Sodium 133(L) 136 - 145 mEq/L 08/22/2020 6:03 EDT [facility] Potassium 3.7 3.5 - 5.1 mEq/L 08/22/2020 6:03 [facility] Chloride 101 96 - 107 mEq/L 08/22/2020 6:03 [facility] CO2 Total 26.1 21 - 32 mEq/L 08/22/2020 6:03 [facility] Anion Gap 6.9 mEq/L 08/22/2020 6:03 [facility] BUN 8 7 - 25 mg/dl 08/22/2020 6:03 [facility] Creatinine 0.67(L) 0.70 - 1.30 mg/dl 08/22/2020 6:03 [facility] Estimated GFR >60 >60 08/22/2020 6:03 [facility] Comment: EGFR UNITS: mL/min/1.73 m 2 CKD-EPI Equation used to calculate. Glucose 94 74 - 106 mg/dl 08/22/2020 6:03 [facility] Calcium 8.2(L) 8.5 - 10.1 mg/dl 08/22/2020 6:03 [facility] 08/22/2020 5:30 EDT 08/22/2020 5:39 EDT Rowan Abad NP CHEMISTRY & BLOOD GA S ORDERABLES Performing Organization Address City/State/[facility] Co de Phone Number [facility] [address] [place] [address] * (ABNORMAL) COMPLETE BLOOD COUNT AND DIFFERENTIAL (08/22/2020 5:30 EDT) WBC 6.0 4.0 - 10.5 10 3/uL 08/22/2020 5:56 [facility] RBC 2.84(L) 4.70 - 6.00 10 6/uL 08/22/2020 5:56 [facility] Hemoglobin 10.0(L) 13.5 - 18.0 g/dL 08/22/2020 5:56 [facility] HCT 28.3(L) 42.0 - 52.0 % 08/22/2020 5:56 [facility] MCV 99.6 78 - 100 fL 08/22/2020 5:56 [facility] MCH 35.2(H) 27 - 31 pg 08/22/2020 5:56 [facility] MCHC 35.3 32 - 37 g/dL 08/22/2020 5:56 [facility] RDW-CV - PMC 14.3 <14.7 % 08/22/2020 5:56 [facility] PLATELET COUNT - PMC 209 150 - 450 10 3/uL 08/22/2020 5:56 [facility] MPV 11.7 9.2 - 12.0 fL 08/22/2020 5:56 [facility] NEUTROPHILS % (AUTO) - PMC 58.1 % 08/22/2020 5:56 [facility] LYMPHOCYTES % (AUTO) - PMC 22.9 % 08/22/2020 5:56 [facility] MONOCYTES % (AUTO) - PMC 14.4 % 08/22/2020 5:56 [facility] EOSINOPHILS % (AUTO) - PMC 3.3 NOT ESTABLISHED % 08/22/2020 5:56 [facility] BASOPHILS % (AUTO) - PMC 1.0 % 08/22/2020 5:56 [facility] Immature Granulocyte % (Auto) 0.3 % 08/22/2020 5:56 [facility] NUCLEATED RBC % (AUTO) - PMC 0.0 % 08/22/2020 5:56 [facility] NEUTROPHILS # (AUTO) - PMC 3.5 1.5 - 6.6 10 3/uL 08/22/2020 5:56 [facility] LYMPHOCYTES # (AUTO) - PMC 1.4 1.0 - 3.5 10 3/uL 08/22/2020 5:56 [facility] MONOCYTES # (AUTO) - PMC 0.9 <1.0 10 3/uL 08/22/2020 5:56 [facility] EOSINOPHILS # (AUTO) - PMC 0.2 <0.7 10 3/uL 08/22/2020 5:56 [facility] BASOPHILS # (AUTO) - PMC 0.1 <0.1 10 3/uL 08/22/2020 5:56 [facility] Absolute Immature Granulocyte 0.02 <0.06 10 3/uL 08/22/2020 5:56 [facility] DIFFERENTIAL METHOD Auto Differential 08/22/2020 5:41 [facility] 08/22/2020 5:30 EDT 08/22/2020 5:39 EDT Rowan Abad ELECTRONIC INDUCTION HARDENER PACKAGES & DNA PROBE ORDERABLES [facility] [address] [place] [address] documented in this encounter Visit Diagnoses Not on filedocumented in this encounter Care Teams Breeder Hen Service Technician Relationship Specialty Start Date End Date Katia Stone, PABijalC [address] [place] [phone] PCP - General 05/02/17 documented as of this encounter
--- OUTSIDE RECORDS SUMMARY | 2023-12-15 14:23 | XMS_ITS | Encounter Summary ---
Author Organization [facility] Address [address] [place] [address] Care Team Providers Care Camp Nurse Name Role Phone Katia Stone PA-C Primary Care Provider +1- [phone] Encounter Details Date Type Department Care Team (Late st Contact Info) Description 09/15/2020 Results Only [facility] [address] [place] [address] Junior Ray MD [address] [place] [address] Social History Tobacco Use Types [...] 4.0 - 10.5 10 3/uL 09/15/2020 5:45 [facility] RBC 3.26(L) 4.70 - 6.00 10 6/uL 09/15/2020 5:45 [facility] Hemoglobin 11.2(L) 13.5 - 18.0 g/dL 09/15/2020 5:45 [facility] HCT 31.9(L) 42.0 - 52.0 % 09/15/2020 5:45 [facility] MCV 97.9 78 - 100 fL 09/15/2020 5:45 [facility] MCH 34.4(H) 27 - 31 pg 09/15/2020 5:45 [facility] MCHC 35.1 32 - 37 g/dL 09/15/2020 5:45 [facility] RDW-CV - PMC 12.4 <14.7 % 09/15/2020 5:45 [facility] PLATELET COUNT - PMC 256 150 - 450 10 3/uL 09/15/2020 5:45 [facility] MPV 10.6 9.2 - 12.0 fL 09/15/2020 5:45 [facility] 09/15/2020 5:25 EDT 09/15/2020 5:28 EDT Junior Ray MD HEMATOLOGY & PF4 OR DERABLES [facility] [address] [place] [address] documented in this encounter Visit Diagnoses Not on filedocumented in this encounter Care Teams Camp Nurse Relationship Specialty Start Date End Date Katia Stone, PABijalC [address] [place] [phone] PCP - General 05/02/17 documented as of this encounter
--- OUTSIDE RECORDS SUMMARY | 2023-12-15 14:23 | XMS_ITS | Encounter Summary ---
Author Organization [facility] Address [address] [place] [address] Care Team Providers Care Informatics Developer Name Role Phone Katia Stone PA-C Primary Care Provider +1- [phone] Encounter Details Date Type Department Care Team (Late st Contact Info) Description 08/16/2020 Results Only [facility] [address] [place] [address] Junior Ray MD [address] [place] [address] Social History Tobacco Use Types [...] 137 136 - 145 mEq/L 08/16/2020 5:50 [facility] Potassium 3.5 3.5 - 5.1 mEq/L 08/16/2020 5:50 [facility] Chloride 103 96 - 107 mEq/L 08/16/2020 5:50 [facility] CO2 Total 28.1 21 - 32 mEq/L 08/16/2020 5:50 [facility] Anion Gap 5.9 mEq/L 08/16/2020 5:50 [facility] BUN 14 7 - 25 mg/dl 08/16/2020 5:50 [facility] Creatinine 0.57(L) 0.70 - 1.30 mg/dl 08/16/2020 5:50 [facility] Estimated GFR >60 >60 08/16/2020 5:50 [facility] Comment: EGFR UNITS: mL/min/1.73 m 2 CKD-EPI Equation used to calculate. Glucose 86 74 - 106 mg/dl 08/16/2020 5:50 [facility] Calcium 8.0(L) 8.5 - 10.1 mg/dl 08/16/2020 5:50 [facility] 08/16/2020 5:20 EDT 08/16/2020 5:29 EDT Junior Ray MD CHEMISTRY & BLOOD G ORDERABLES Performing Organization Address City/[facility]/ZIP Co de Phone Number [facility] [address] [place] [address] * (ABNORMAL) COMPLETE BLOOD COUNT (08/16/2020 5:20 EDT) Pathologist [facility] WBC 5.0 4.0 - 10.5 10 3/uL 08/16/2020 5:46 EDT [facility] RBC 2.65(L) 4.70 - 6.00 10 6/uL 08/16/2020 5:46 [facility] Hemoglobin 9.3(L) 13.5 - 18.0 g/dL 08/16/2020 5:46 [facility] HCT 27.3(L) 42.0 - 52.0 % 08/16/2020 5:46 [facility] MCV 103.0(H) 78 - 100 fL 08/16/2020 5:46 [facility] MCH 35.1(H) 27 - 31 pg 08/16/2020 5:46 [facility] MCHC 34.1 32 - 37 g/dL 08/16/2020 5:46 [facility] RDW-CV - PMC 15.1(H) <14.7 % 08/16/2020 5:46 [facility] PLATELET COUNT - PMC 202 150 - 450 10 3/uL 08/16/2020 5:46 [facility] MPV 10.1 9.2 - 12.0 fL 08/16/2020 5:46 [facility] 08/16/2020 5:20 EDT 08/16/2020 5:29 EDT Junior Ray MD HEMATOLOGY & PF4 OR DERABLES [facility] [address] [place] [address] documented in this encounter Visit Diagnoses Not on filedocumented in this encounter Care Teams Informatics Developer Relationship Specialty Start Date End Date Katia Stone, PABijalC [address] [place] [phone] PCP - General 05/02/17 documented as of this encounter
--- OUTSIDE RECORDS SUMMARY | 2023-12-15 14:23 | XMS_ITS | Encounter Summary ---
Author Organization [facility] Address [address] [place] [address] Care Team Providers Care Optical Glass Silverer Name Role Phone Katia Stone PA-C Primary Care Provider +1- [phone] Encounter Details Date Type Department Care Team (Late st Contact Info) Description 08/20/2020 Results Only [facility] [address] [place] [address] Junior Ray MD [address] [place] [address] Social History Tobacco Use Types [...] G ORDERABLES [facility] [address] [place] [address] * (ABNORMAL) BASIC METABOLIC PANEL (BMP) (08/20/2020 6:50 EDT) Sodium 134(L) 136 - 145 mEq/L 08/20/2020 7:27 EDT [facility] Potassium 3.6 3.5 - 5.1 mEq/L 08/20/2020 7:27 [facility] Chloride 100 96 - 107 mEq/L 08/20/2020 7:27 EDT [facility] CO2 Total 28.7 21 - 32 mEq/L 08/20/2020 7:27 T [facility] Anion Gap 5.3 mEq/L 08/20/2020 7:27 [facility] BUN 7 7 - 25 mg/dl 08/20/2020 7:27 [facility] Creatinine 0.48(L) 0.70 - 1.30 mg/dl 08/20/2020 7:27 [facility] Estimated GFR >60 >60 08/20/2020 7:27 [facility] Comment: EGFR UNITS: mL/min/1.73 m 2 CKD-EPI Equation used to calculate. Glucose 91 74 - 106 mg/dl 08/20/2020 7:27 [facility] Calcium 8.3(L) 8.5 - 10.1 mg/dl 08/20/2020 7:27 [facility] 08/20/2020 6:50 EDT 08/20/2020 6:59 EDT Junior Ray MD CHEMISTRY & BLOOD G ORDERABLES [facility] [address] [place] [address] * (ABNORMAL) COMPLETE BLOOD COUNT (08/20/2020 6:50 EDT) WBC 5.8 4.0 - 10.5 10 3/uL 08/20/2020 7:07 [facility] RBC 2.96(L) 4.70 - 6.00 10 6/uL 08/20/2020 7:07 [facility] Hemoglobin 10.5(L) 13.5 - 18.0 g/dL 08/20/2020 7:07 [facility] HCT 29.8(L) 42.0 - 52.0 % 08/20/2020 7:07 [facility] MCV 100.7(H) 78 - 100 fL 08/20/2020 7:07 [facility] MCH 35.5(H) 27 - 31 pg 08/20/2020 7:07 [facility] MCHC 35.2 32 - 37 g/dL 08/20/2020 7:07 [facility] RDW-CV - PMC 14.7 <14.7 [...] OR DERABLES [facility] [address] [place] [address] documented in this encounter Visit Diagnoses Not on filedocumented in this encounter Care Teams Optical Glass Silverer Relationship Specialty Start Date End Date Katia Stone, PABijalC [address] [place] [phone] PCP - General 05/02/17 documented as of this encounter
--- OUTSIDE RECORDS SUMMARY | 2023-12-15 14:23 | XMS_ITS | Encounter Summary ---
Author Organization [facility] Address [address] [place] [address] Care Team Providers Care Head Of Quality Name Role Phone Katia Stone PA-C Primary Care Provider +1- [phone] Encounter Details Date Type Department Care Team (Late st Contact Info) Description 09/06/2020 Results Only [facility] [phone] Rowan Abad, TAIWO [address] [place] [phone] Social History Tobacco Use Types Packs/Day [...] * PLATELET COUNT (09/06/2020 5:05 EDT) Pathologist [facility] PLATELET COUNT - R [facility] 236 150 - 450 10 3/uL 09/06/2020 5:55 EDT [facility] 09/06/2020 5:05 EDT 09/06/2020 5:32 EDT Narrative [facility] - 09/06/2020 5:58 EDT Comment ENOXAPARIN MONITORING Rowan Abad NP HEMATOLOGY & PF4 ORD ERABLES Performing Organization Address City/State/[facility] Co de Phone Number [facility] [address] [place] [address] * (ABNORMAL) CREATININE WITH GFR - PMC (09/06/2020 5:05 EDT) Pathologist [facility] Creatinine 0.60(L) 0.70 - 1.30 mg/dl 09/06/2020 5:52 EDT [facility] Estimated GFR >60 >60 09/06/2020 5:52 EDT [facility] Comment: EGFR UNITS: mL/min/1.73 m 2 CKD-EPI Equation used to calculate. 09/06/2020 5:05 EDT 09/06/2020 5:32 EDT Rowan Abad NP CHEMISTRY & BLOOD GA S ORDERABLES [facility] [address] [place] [address] documented in this encounter Visit Diagnoses Not on filedocumented in this encounter Care Teams Head Of Quality Relationship Specialty Start Date End Date Katia Stone, MINGO [address] [place] [phone] PCP - General 05/02/17 documented as of this encounter
--- OUTSIDE RECORDS SUMMARY | 2023-12-15 14:23 | XMS_ITS | Encounter Summary ---
Author Organization [facility] Address [address] [place] [address] Care Team Providers Care Accounting Auditor Name Role Phone Katia Stone PA-C Primary Care Provider +1- [phone] Encounter Details Date Type Department Care Team (Late st Contact Info) Description 06/21/2021 Lab Requisition [facility] Pathology & Laboratory Medicine - [address] [address] Virginia Price, DO [address] [place] [address] Acute cholecystitis Social History Tobacco Use Types [...] explore management options, if applicable. 06/26/2021 10:43 [facility] Final Diagnosis A. GALLBLADDER, CHOLECYSTECTOMY: - Acute and chronic erosive cholecystitis. 06/26/2021 10:43 [facility] Attestation There was significant resident/fellow involvement in the diagnostic evaluation of this case. By the signature below, the attending physician certifies that they have personally conducted a gross and/or microscopic examination of the described specimens and rendered or confirmed the above diagnosis. 06/26/2021 10:43 [facility] at 1043 Clinical History Cholecystitis 06/26/2021 10:43 [facility] Gross Description A. Received [...] gallbladder or free-floating within the container. Two pharmaceutical representative sections and the en face cystic duct margin are submitted in A1. GIRISH GOMEZ(ASCP) 06/22/2021 7:58 06/26/2021 10:43 EDT [facility] Resident/Emile w: Chayo Chatman MD 06/26/2021 10:43 EDT [facility] Performing Lab [facility] 06/26/2021 10:43 EDT [facility] Scanned Images 06/26/2021 10:43 EDT [facility] Tissue ENTIRE GALLBLADDER / Unknown 06/21/2021 11:58 EDT 06/21/2021 17:30 EDT Virginia Price DO PATHOLOGY ORDERABLES [facility] [address] [place] [address] documented in this encounter Visit Diagnoses Diagnosis Acute cholecystitis documented in this encounter Additional Health Concerns Infection Onset Date Last Indicated Resolved Time RSV 01/31/2022 01/31/2022 02/10/2022 22:1 5 EST documented as of this encounter Care Teams Accounting Auditor Relationship Specialty Start Date End Date Katia Stone, MINGO [address] [place] [phone] PCP - General 05/02/17 documented as of this encounter
--- OUTSIDE RECORDS SUMMARY | 2023-12-15 14:23 | XMS_ITS | Encounter Summary ---
Author Organization [facility] Address [address] [place] [address] Care Team Providers Care Vmware Engineer Name Role Phone Katia Stone PA-C Primary Care Provider +1- [phone] Encounter Details Date Type Department Care Team (Late st Contact Info) Description 09/05/2020 Results Only [facility] [phone] Rowan Abad, TAIWO [address] [place] [phone] Social History Tobacco Use Types Packs/Day [...] 4.0 - 10.5 10 3/uL 09/05/2020 14:58 [facility] RBC 3.40(L) 4.70 - 6.00 10 6/uL 09/05/2020 14:58 [facility] Hemoglobin 11.6(L) 13.5 - 18.0 g/dL 09/05/2020 14:58 [facility] HCT 33.9(L) 42.0 - 52.0 % 09/05/2020 14:58 [facility] MCV 99.7 78 - 100 fL 09/05/2020 14:58 [facility] MCH 34.1(H) 27 - 31 pg 09/05/2020 14:58 [facility] MCHC 34.2 32 - 37 g/dL 09/05/2020 14:58 [facility] RDW-CV - PMC 13.1 <14.7 % 09/05/2020 14:58 [facility] PLATELET COUNT - PMC 253 150 - 450 10 3/uL 09/05/2020 14:58 [facility] MPV 10.9 9.2 - 12.0 fL 09/05/2020 14:58 [facility] NEUTROPHILS % (AUTO) - PMC 57.6 % 09/05/2020 14:58 [facility] LYMPHOCYTES % (AUTO) - PMC 25.0 % 09/05/2020 14:58 [facility] MONOCYTES % (AUTO) - PMC 13.3 % 09/05/2020 14:58 [facility] EOSINOPHILS % (AUTO) - PMC 2.7 NOT ESTABLISHED % 09/05/2020 14:58 [facility] BASOPHILS % (AUTO) - PMC 1.1 % 09/05/2020 14:58 [facility] Immature Granulocyte % (Auto) 0.3 % 09/05/2020 14:58 [facility] NUCLEATED RBC % (AUTO) - PMC 0.0 % 09/05/2020 14:58 [facility] NEUTROPHILS # (AUTO) - PMC 3.7 1.5 - 6.6 10 3/uL 09/05/2020 14:58 [facility] LYMPHOCYTES # (AUTO) - PMC 1.6 1.0 - 3.5 10 3/uL 09/05/2020 14:58 [facility] MONOCYTES # (AUTO) - PMC 0.9 <1.0 10 3/uL 09/05/2020 14:58 [facility] EOSINOPHILS # (AUTO) - PMC 0.2 <0.7 10 3/uL 09/05/2020 14:58 [facility] BASOPHILS # (AUTO) - PMC 0.1 <0.1 10 3/uL 09/05/2020 14:58 [facility] Absolute Immature Granulocyte 0.02 <0.06 10 3/uL 09/05/2020 14:58 [facility] DIFFERENTIAL METHOD Auto Differential 09/05/2020 14:36 [facility] 09/05/2020 14:3 0 EDT 09/05/2020 14:35 EDT Rowan Abad NP PACKAGES & DNA PROBE ORDERABLES [facility] [address] [place] [address] * MAGNESIUM (09/05/2020 14:30 EDT) Pathologist [facility] Magnesium 1.8 1.8 - 2.4 mg/dl 09/05/2020 14:57 [facility] 09/05/2020 14:3 0 EDT 09/05/2020 14:35 EDT Rowan Abad NP CHEMISTRY & BLOOD GA S ORDERABLES Performing Organization Address City/[facility] Co de Phone Number [facility] [address] [place] [address] * (ABNORMAL) BASIC METABOLIC PANEL (BMP) (09/05/2020 14:30 EDT) Pathologist [facility] Sodium 132(L) 136 - 145 mEq/L 09/05/2020 14:57 [facility] Potassium 4.3 3.5 - 5.1 mEq/L 09/05/2020 14:57 [facility] Chloride 99 96 - 107 mEq/L 09/05/2020 14:57 [facility] CO2 Total 26.5 21 - 32 mEq/L 09/05/2020 14:57 [facility] Anion Gap 6.5 mEq/L 09/05/2020 14:57 [facility] BUN 12 7 - 25 mg/dl 09/05/2020 14:57 [facility] Creatinine 0.60(L) 0.70 - 1.30 mg/dl 09/05/2020 14:57 [facility] Estimated GFR >60 >60 09/05/2020 14:57 [facility] Comment: EGFR UNITS: mL/min/1.73 m 2 CKD-EPI Equation used to calculate. Glucose 100 74 - 106 mg/dl 09/05/2020 14:57 [facility] Calcium 8.6 8.5 - 10.1 mg/dl 09/05/2020 14:57 [facility] 09/05/2020 14:3 0 EDT 09/05/2020 14:35 EDT Rowan Abad CUSTODIAL AIDE CHEMISTRY & BLOOD GA S ORDERABLES [facility] [address] [place] [address] documented in this encounter Visit Diagnoses Not on filedocumented in this encounter Care Teams Vmware Engineer Relationship Specialty Start Date End Date Katia Stone, PABijalC [address] [place] [phone] PCP - General 05/02/17 documented as of this encounter
--- OUTSIDE RECORDS SUMMARY | 2023-12-15 14:23 | XMS_ITS | Encounter Summary ---
Author Organization [facility] Address [address] [place] [address] Care Team Providers Care Mend Worker Name Role Phone Katia Stone PA-C Primary Care Provider +1- [phone] Encounter Details Date Type Department Care Team (Late st Contact Info) Description 08/25/2020 Lab Requisition [facility] Pathology & Laboratory Medicine - [address] [address] Outr Resulting Lab, Provider Social History Tobacco [...] 1, PCR Negative Negative 08/26/2020 17:16 EDT [facility] Herpes Simplex Virus Molecular Detection 2, PCR Negative Negative 08/26/2020 17:16 EDT [facility] Swab ENTIRE UPPER LIMB / Unknown 08/25/2020 14:15 EDT 08/25/2020 21:20 EDT Provider Outr Resulting Lab MICROBIOLOGY - GENERAL ORDERABLES Performing Organization Address City/State/[facility] Co de Phone Number [facility] [address] [place] [address] documented in this encounter Visit Diagnoses Not on filedocumented in this encounter Additional Health Concerns Infection Onset Date Last Indicated Resolved Time RSV 01/31/2022 01/31/2022 02/10/2022 22:1 5 EST documented as of this encounter Care Teams Mend Worker Relationship Specialty Start Date End Date Katia Stone PA-C [address] [place] [id number] PCP - General 05/02/17 documented as of this encounter
--- OUTSIDE RECORDS SUMMARY | 2023-12-15 14:23 | XMS_ITS | Encounter Summary ---
Author Organization [facility] Address [address] [place] [address] Care Team Providers Care Sandstone Inspector Repairer Name Role Phone Katia Stone PA-C Primary Care Provider +1- [phone] Encounter Details Date Type Department Care Team (Late st Contact Info) Description 08/25/2020 Lab Requisition [facility] Pathology & Laboratory Medicine - [address] [address] Outr Resulting Lab, Provider Social History Tobacco [...] Few Usual skin jesi 08/27/2020 15:22 EDT [facility] Smear Few Neutrophils Present(A) 08/27/2020 15:22 EDT [facility] Smear No bacteria seen(A) 08/27/2020 15:22 EDT [facility] Swab ENTIRE UPPER LIMB / Unknown 08/25/2020 14:15 EDT 08/25/2020 21:17 EDT Provider Outr Resulting Lab MICROBIOLOGY - GENERAL ORDERABLES [facility] [address] [place] [address] documented in this encounter Visit Diagnoses Not on filedocumented in this encounter Additional Health Concerns Infection Onset Date Last Indicated Resolved Time RSV 01/31/2022 01/31/2022 02/10/2022 22:1 5 EST documented as of this encounter Care Teams Sandstone Inspector Repairer Relationship Specialty Start Date End Date Katia Stone, PABijalC [address] [facility] [place] [place] [phone] PCP - General 05/02/17 documented as of this encounter
--- OUTSIDE RECORDS SUMMARY | 2023-12-15 14:23 | XMS_ITS | Encounter Summary ---
Author Organization [facility] Address [address] [place] [address] Care Team Providers Care Golf Course Superintendent Name Role Phone Katia Stone PA-C Primary Care Provider +1- [phone] Encounter Details Date Type Department Care Team (Late st Contact Info) Description 08/20/2020 Results Only [facility] [address] [place] [address] Marilyn Hood MD [address] [place] [address] Social History Tobacco Use Types [...] Requests ADD ON DONE 08/20/2020 12:58 EDT [facility] Comment: All tests (see tests in sample comments) have been added as requested. 08/20/2020 12:5 1 EDT 08/20/2020 12:58 EDT Narrative [facility] - 08/20/2020 12:58 EDT today on the med/surg Magnesium Marilyn Hood MD CHEMISTRY & BLO OD GAS ORDERABLES Performing Organization Address City/State/[facility] Co de Phone Number [facility] [address] [place] [address] documented in this encounter Visit Diagnoses Not on filedocumented in this encounter Care Teams Golf Course Superintendent Relationship Specialty Start Date End Date Katia Stone, PABijalC [address] [facility] [place] [phone] PCP - General 05/02/17 documented as of this encounter
--- OUTSIDE RECORDS SUMMARY | 2023-12-15 14:23 | XMS_ITS | Encounter Summary ---
Author Organization [facility] Address [address] [place] [address] Care Team Providers Care Weblogic Developer Name Role Phone Katia Stone PA-C Primary Care Provider +1- [phone] Encounter Details Date Type Department Care Team (Late st Contact Info) Description 08/19/2020 Results Only [facility] [address] [place] [address] Junior Ray MD [address] [place] [address] Social History Tobacco Use Types [...] 134(L) 136 - 145 mEq/L 08/19/2020 7:41 [facility] Potassium 3.5 3.5 - 5.1 mEq/L 08/19/2020 7:41 [facility] Chloride 99 96 - 107 mEq/L 08/19/2020 7:41 [facility] CO2 Total 29.4 21 - 32 mEq/L 08/19/2020 7:41 [facility] Anion Gap 5.6 mEq/L 08/19/2020 7:41 [facility] BUN 8 7 - 25 mg/dl 08/19/2020 7:41 [facility] Creatinine 0.48(L) 0.70 - 1.30 mg/dl 08/19/2020 7:41 [facility] Estimated GFR >60 >60 08/19/2020 7:41 [facility] Comment: EGFR UNITS: mL/min/1.73 m 2 CKD-EPI Equation used to calculate. Glucose 93 74 - 106 mg/dl 08/19/2020 7:41 [facility] Calcium 8.3(L) 8.5 - 10.1 mg/dl 08/19/2020 7:41 [facility] 08/19/2020 7:10 EDT 08/19/2020 7:13 EDT Junior Ray MD CHEMISTRY & BLOOD G ORDERABLES [facility] [address] [place] [address] documented in this encounter Visit Diagnoses Not on filedocumented in this encounter Care Teams Weblogic Developer Relationship Specialty Start Date End Date Katia Stone, PABijalC [address] [facility] [place] [address] PCP - General 05/02/17 documented as of this encounter
--- OUTSIDE RECORDS SUMMARY | 2023-12-15 14:23 | XMS_ITS | Encounter Summary ---
Author Organization [facility] Address [address] [place] [address] Care Team Providers Care Set Up Mechanic Name Role Phone Katia Stone PA-C Primary Care Provider +1- [phone] Encounter Details Date Type Department Care Team (Late st Contact Info) Description 08/11/2020 Results Only [facility] [address] [place] [address] Jayesh Olmos MD [address] [place] [address] Social History Tobacco Use Types [...] - PMC SEE NOTES 021 15:34 EDT [facility] Comment: RESULT: No ova and parasites seen. Source:stool (If Cryptosporidium, Cyclospora, or Microsporidium are suspected, specific tests must be requested.) Single negative specimen does not rule out the possibility of a parasitic infection. Test performed [place] [address] 08/11/2020 14:5 0 EDT 08/12/2020 14:54 EDT Narrative [facility] - 08/14/2020 15:34 EDT stool Jayesh Olmos MD MICROBIOLOGY - GENERAL ORDERABLES [facility] [address] [place] [address] * FECAL BACTERIAL PATHOGENS BY PCR (08/11/2020 14:50 EDT) Salmonella PCR Negative Negative 08/13/2020 19:57 EDT [facility] Shigella/Enteroin vasive E. coli Negative Negative 08/13/2020 19:57 EDT [facility] HN LAB CAMPYLOBACTER PCR Negative Negative 08/13/2020 19:57 EDT [facility] Shiga Toxin PCR Negative Negative 1 7:29 EDT [facility] Comment: Test performed or referred by The [address] [address] 08/11/2020 14:5 0 EDT 08/12/2020 14:53 EDT Jayesh Olmos MD MICROBIOLOGY - GENERAL ORDERABLES Performing Organization Address City/State/[facility] Co de Phone Number [facility] [address] [place] [address] documented in this encounter Visit Diagnoses Not on filedocumented in this encounter Care Teams Set Up Mechanic Relationship Specialty Start Date End Date Katia Stone, BELLAC [address] [place] [address] PCP - General 05/02/17 documented as of this encounter
--- OUTSIDE RECORDS SUMMARY | 2023-12-15 14:23 | XMS_ITS | Encounter Summary ---
Author Organization [facility] Address [address] [place] [address] Care Team Providers Care Cut In Station Operator Name Role Phone Katia Stone PA-C Primary Care Provider +1- [phone] Encounter Details Date Type Department Care Team (Late st Contact Info) Description 04/30/2022 Lab Requisition [facility] Pathology & Laboratory Medicine - [address] [address] Ike Chahal MD [address] [place] [address] Disorder of the skin and subcutaneous tissue, [...] explore management options, if applicable. 05/01/2022 14:29 [facility] Final Diagnosis A. SKIN OF NASAL TIP, EXCISION: - Dermal fibrosis, adipose accumulation, and edema with sebaceous hyperplasia and lymphoplasmacytic inflammation. See comment. 05/01/2022 14:29 [facility] Diagnosis Comment The histopathologic features, in the correct clinical setting, are most suggestive of rhinophyma. There is no evidence of malignancy. 05/01/2022 14:29 [facility] Attestation By the signature below, the attending physician certifies that they have 1) personally conducted a gross and/or microscopic examination of the described specimen(s), and/or personally interpreted the results of laboratory testing of the described specimen(s), and 2) personally rendered or confirmed the above diagnosis. 05/01/2022 14:29 [facility] at 1429 Microscopic Description [...] direct continuity with overlying epidermis. 05/01/2022 14:29 [facility] Clinical History Nasal tip lesion; clinical diagnosis code: L98.9 05/01/2022 14:29 [facility] Gross Description A. Received [...] sections GIRISH GOMEZ(ASCP) 04/30/2022 9:39 05/01/2022 14:29 [facility] Performing Lab [facility] 05/01/2022 14:29 [facility] Scanned Images 05/01/2022 14:29 [facility] Tissue TISSUE SPECIMEN FROM SKIN / Unknown 04/29/2022 14:00 EST 04/30/2022 9:00 EST Iek Chahal MD PATHOLOGY ORDERABLES [facility] [address] [place] [address] documented in this encounter Visit Diagnoses Diagnosis Disorder of the skin and subcutaneous tissue, unspecified documented in this encounter Care Teams Cut In Station Operator Relationship Specialty Start Date End Date Katia Stone, BELLAC [address] [facility] [place] [facility] [place] [phone] PCP - General 05/02/17 documented as of this encounter
--- OUTSIDE RECORDS SUMMARY | 2023-12-15 14:23 | XMS_ITS | Encounter Summary ---
Author Organization [facility] Address [address] [place] [address] Care Team Providers Care Ground Support Agent Name Role Phone Katia Stone PA-C Primary Care Provider +1- [phone] Encounter Details Date Type Department Care Team (Late st Contact Info) Description 08/13/2020 Lab Requisition [facility] Pathology & Laboratory Medicine - [address] [address] Outr Resulting Lab, Provider Social History Tobacco [...] ova and parasites seen. 08/14/2020 11:44 EDT [facility] Feces SPECIMEN FROM RECTUM / Unknown 08/11/2020 14:50 EDT 08/13/2020 15:22 EDT Narrative [facility] - 08/14/2020 11:44 EDT (If Cryptosporidium, Cyclospora, or Microsporidium are suspected, specific tests must be requested.) Single negative specimen does not rule out the possibility of a parasitic infection. Provider Outr Resulting Lab MICROBIOLOGY - GENERAL ORDERABLES [facility] [address] [place] [address] documented in this encounter Visit Diagnoses Not on filedocumented in this encounter Additional Health Concerns Infection Onset Date Last Indicated Resolved Time RSV 01/31/2022 01/31/2022 02/10/2022 22:1 5 EST documented as of this encounter Care Teams Ground Support Agent Relationship Specialty Start Date End Date Katia Stone, PABijalC [address] [place] [phone] PCP - General 05/02/17 documented as of this encounter
--- OUTSIDE RECORDS SUMMARY | 2023-12-15 14:23 | XMS_ITS | Encounter Summary ---
Author Organization [facility] Address [address] [place] [address] Care Team Providers Care Home Sales Consultant Name Role Phone Katia Stone PA-C Primary Care Provider +1- [phone] Encounter Details Date Type Department Care Team (Late st Contact Info) Description 08/09/2020 Results Only [facility] [place] [address] [place] [address] Virginia Quintana MD [address] [place] [address] Social History Tobacco Use Types Packs/Day Years [...] 128(L) 136 - 145 mEq/L 08/09/2020 6:09 [facility] Potassium 3.3(L) 3.5 - 5.1 mEq/L 08/09/2020 6:09 [facility] Chloride 90(L) 96 - 107 mEq/L 08/09/2020 6:09 [facility] CO2 Total 27.4 21 - 32 mEq/L 08/09/2020 6:09 [facility] Anion Gap 10.6 mEq/L 08/09/2020 6:09 [facility] BUN 11 7 - 25 mg/dl 08/09/2020 6:09 [facility] Creatinine 0.71 0.70 - 1.30 mg/dl 08/09/2020 6:09 [facility] Estimated GFR >60 >60 08/09/2020 6:09 [facility] Comment: EGFR UNITS: mL/min/1.73 m 2 CKD-EPI Equation used to calculate. Glucose 117(H) 74 - 106 mg/dl 08/09/2020 6:09 [facility] Calcium 8.3(L) 8.5 - 10.1 mg/dl 08/09/2020 6:09 [facility] CALCIUM,CORRECTE D - PMC 9.4 8.5 - 10.5 mg/dl 08/09/2020 6:24 [facility] BILIRUBIN - PMC 1.30(H) 0.00 - 1.00 mg/dl 08/09/2020 6:24 [facility] AST 62(H) 15 - 37 U/L 08/09/2020 6:24 [facility] ALT 46 16 - 63 U/L 08/09/2020 6:24 [facility] Alkaline Phosphatase 114 46 - 116 U/L 08/09/2020 6:24 [facility] Total Protein 6.7 6.4 - 8.2 g/dl 08/09/2020 6:24 [facility] Albumin 2.6(L) 3.4 - 5.0 g/dl 08/09/2020 6:24 [facility] GLOBULIN - PMC 4.1 g/dl 08/09/2020 6:24 [facility] ALBUMIN/GLOBULIN RATIO - PMC 0.6 08/09/2020 6:24 [facility] 08/09/2020 5:35 EDT 08/09/2020 5:44 EDT Virginia Quintana MD CHEMISTRY & BLOOD GA S ORDERABLES [facility] [address] [place] [address] * (ABNORMAL) COMPLETE BLOOD COUNT AND DIFFERENTIAL (08/09/2020 5:35 EDT) WBC 10.3 4.0 - 10.5 10 3/uL 08/09/2020 6:00 [facility] RBC 2.98(L) 4.70 - 6.00 10 6/uL 08/09/2020 6:00 [facility] Hemoglobin 10.6(L) 13.5 - 18.0 g/dL 08/09/2020 6:00 [facility] HCT 29.6(L) 42.0 - 52.0 % 08/09/2020 6:00 [facility] MCV 99.3 78 - 100 fL 08/09/2020 6:00 [facility] MCH 35.6(H) 27 - 31 pg 08/09/2020 6:00 [facility] MCHC 35.8 32 - 37 g/dL 08/09/2020 6:00 [facility] RDW-CV - PMC 13.8 <14.7 % 08/09/2020 6:00 [facility] PLATELET COUNT - PMC 179 150 - 450 10 3/uL 08/09/2020 6:00 [facility] MPV 11.6 9.2 - 12.0 fL 08/09/2020 6:00 [facility] NEUTROPHILS % (AUTO) - PMC 84.2 % 08/09/2020 6:00 [facility] LYMPHOCYTES % (AUTO) - PMC 7.2 % 08/09/2020 6:00 [facility] MONOCYTES % (AUTO) - PMC 8.0 % 08/09/2020 6:00 [facility] EOSINOPHILS % (AUTO) - PMC 0.0 % 08/09/2020 6:00 [facility] BASOPHILS % (AUTO) - PMC 0.1 % 08/09/2020 6:00 [facility] Immature Granulocyte % (Auto) 0.5 % 08/09/2020 6:00 [facility] NUCLEATED RBC % (AUTO) - PMC 0.0 % 08/09/2020 6:00 [facility] NEUTROPHILS # (AUTO) - PMC 8.7(H) 1.5 - 6.6 10 3/uL 08/09/2020 6:00 [facility] LYMPHOCYTES # (AUTO) - PMC 0.7(L) 1.0 - 3.5 10 3/uL 08/09/2020 6:00 [facility] MONOCYTES # (AUTO) - PMC 0.8 <1.0 10 3/uL 08/09/2020 6:00 EDT [facility] EOSINOPHILS # (AUTO) - PMC 0.0 <0.7 10 3/uL 08/09/2020 6:00 EDT [facility] Absolute Immature Granulocyte 0.05 <0.06 10 3/uL 08/09/2020 6:00 EDT [facility] DIFFERENTIAL METHOD Auto Differential 08/09/2020 5:46 EDT [facility] 08/09/2020 5:35 EDT 08/09/2020 5:44 EDT Virginia Quintana MD PACKAGES & DNA PROBE ORDERABLES Performing Organization Address City/State/[facility] Co de Phone Number [facility] [address] [place] [address] * C DIFFICILE TOXIN PCR, F > 2 YRS - PMC (08/09/2020 3:24 EDT) 08/09/2020 3:24 EDT 08/10/2020 5:39 EDT Comment:KWASI Narrative [facility] - 08/10/2020 6:26 EDT ----- ------- ?? RUN DATE: 08/10/20 ? [facility]: [facility] *LIVE* ? PAGE 1 ? RUN TIME: 625 ?Specimen Inquiry ? ----- ------- ?? PATIENT: ADVID FARFAN ? ACCT: [id number] LOC: ??MS ? U: [id number] ? AGE/SX: 69/M ? ROOM: 138 ?RE08/09/20 ?? REG DR: ??Ester Valerio MD ? : ?1950 ?? BED: ??1 ?DIS: ? STATUS: ADM Astrid ?TLOC: ? ----- ------- ? SPEC #: [id number] ?ALEX: 08/09/20-323 ? STATUS: ??COMP ? REQ #: [id number] ?RECD: 08/10/20 ? SUBM DR: Jennifer Tyson [...] Quintana MD MICROBIOLOGY - GENER AL ORDERABLES [facility] [address] [place] [address] documented in this encounter Visit Diagnoses Not on filedocumented in this encounter Care Teams Home Sales Consultant Relationship Specialty Start Date End Date Katia Stone, PABijalC [address] [place] [phone] PCP - General 05/02/17 documented as of this encounter
--- OUTSIDE RECORDS SUMMARY | 2023-12-15 14:23 | XMS_ITS | Encounter Summary ---
Author Organization [facility] Address [address] [place] [address] Care Team Providers Care Kennel Helper Name Role Phone Katia Stone PA-C Primary Care Provider +1- [phone] Encounter Details Date Type Department Care Team (Late st Contact Info) Description 08/11/2020 Results Only [facility] [address] [place] [address] Ester Valerio MD [address] [facility] [address] [place] [phone] Social History Tobacco Use Types Packs/Day Years [...] 1.8 - 2.4 mg/dl 08/11/2020 6:07 EDT [facility] 08/11/2020 5:25 EDT 08/11/2020 5:39 EDT Ester Valerio MD CHEMISTRY & BLOO D GAS ORDERABLES Performing Organization Address City/State/[facility] Co de Phone Number [facility] [address] [place] [address] * (ABNORMAL) BASIC METABOLIC PANEL (BMP) (08/11/2020 5:25 EDT) Sodium 132(L) 136 - 145 mEq/L 08/11/2020 6:07 EDT [facility] Potassium 3.5 3.5 - 5.1 mEq/L 08/11/2020 6:07 T [facility] Chloride 99 96 - 107 mEq/L 08/11/2020 6:07 EDT [facility] CO2 Total 28.6 21 - 32 mEq/L 08/11/2020 6:07 [facility] Anion Gap 4.4 mEq/L 08/11/2020 6:07 [facility] BUN 5(L) 7 - 25 mg/dl 08/11/2020 6:07 [facility] Creatinine 0.51(L) 0.70 - 1.30 mg/dl 08/11/2020 6:07 [facility] Estimated GFR >60 >60 08/11/2020 6:07 [facility] Comment: EGFR UNITS: mL/min/1.73 m 2 CKD-EPI Equation used to calculate. Glucose 112(H) 74 - 106 mg/dl 08/11/2020 6:07 [facility] Calcium 7.7(L) 8.5 - 10.1 mg/dl 08/11/2020 6:07 [facility] 08/11/2020 5:25 EDT 08/11/2020 5:39 EDT Ester Valerio MD CHEMISTRY & BLOO D GAS ORDERABLES [facility] [address] [place] [address] * (ABNORMAL) HEPATIC FUNCTION PANEL (ALB,ALK PHOS,ALT,AST,DBIL,TOT BOSSMAN,TOT PROT) (08/11/2020 5:25 EDT) BILIRUBIN - PMC 0.70 0.00 - 1.00 mg/dl 08/11/2020 6:07 [facility] DIRECT BILIRUBIN - PMC 0.30 0.00 - 0.30 mg/dl 08/11/2020 6:07 [facility] INDIRECT BILIRUBIN - PMC 0.40 0.00 - 0.80 mg/dl 08/11/2020 6:07 [facility] AST 39(H) 15 - 37 U/L 08/11/2020 6:07 [facility] ALT 30 16 - 63 U/L 08/11/2020 6:07 [facility] Alkaline Phosphatase 95 46 - 116 U/L 08/11/2020 6:07 EDT [facility] Total Protein 6.1(L) 6.4 - 8.2 g/dl 08/11/2020 6:07 T [facility] Albumin 2.2(L) 3.4 - 5.0 g/dl 08/11/2020 6:07 EDT [facility] GLOBULIN - PMC 3.9 g/dl 08/11/2020 6:07 EDT [facility] ALBUMIN/GLOBULIN RATIO - PMC 0.5 08/11/2020 6:07 EDT [facility] 08/11/2020 5:25 EDT 08/11/2020 5:39 EDT Ester Valerio MD CHEMISTRY & BLOO D GAS ORDERABLES [facility] [address] [place] [address] documented in this encounter Visit Diagnoses Not on filedocumented in this encounter Care Teams Kennel Helper Relationship Specialty Start Date End Date Katia Stone, BELLAC [address] [place] [phone] PCP - General 05/02/17 documented as of this encounter
--- OUTSIDE RECORDS SUMMARY | 2023-12-15 14:23 | XMS_ITS | Encounter Summary ---
Author Organization [facility] Address [address] [place] [address] Care Team Providers Care Supply Specialist Name Role Phone Katia Stone PA-C Primary Care Provider +1- [phone] Encounter Details Date Type Department Care Team (Late st Contact Info) Description 08/13/2020 Lab Requisition [facility] Pathology & Laboratory Medicine - [address] [address] Outr Resulting Lab, Provider Social History Tobacco [...] Salmonella PCR Negative Negative 08/13/2020 19:[address] [facility] Shigella/Enteroin vasive E. coli Negative Negative 08/13/2020 19:[address] [facility] HN LAB CAMPYLOBACTER PCR Negative Negative 08/13/2020 19:[address] [facility] Shiga Toxin PCR Negative Negative 19:[address] [facility] Feces SPECIMEN FROM RECTUM / Unknown 08/11/2020 14:50 EDT 08/13/2020 15:22 EDT Provider Outr Resulting Lab MICROBIOLOGY - GENERAL ORDERABLES [facility] [address] [place] [address] documented in this encounter Visit Diagnoses Not on filedocumented in this encounter Additional Health Concerns Infection Onset Date Last Indicated Resolved Time RSV 01/31/2022 01/31/2022 02/10/2022 22:1 5 EST documented as of this encounter Care Teams Supply Specialist Relationship Specialty Start Date End Date Katia Stone, PABijalC [address] [place] [phone] PCP - General 05/02/17 documented as of this encounter
--- OUTSIDE RECORDS SUMMARY | 2023-12-15 14:23 | XMS_ITS | Encounter Summary ---
Author Organization [facility] Address [address] [place] [address] Care Team Providers Care Senior Business Architect Name Role Phone Katia Stone PA-C Primary Care Provider +1- [phone] Encounter Details Date Type Department Care Team (Late st Contact Info) Description 08/17/2023 Lab Requisition [facility] Pathology & Laboratory Medicine - [address] [address] Outr Resulting Lab, Provider Social History Tobacco [...] 150 - 1,150 mOsm/kg 08/17/2023 16:14 EDT [facility] Urine URINE / Unknown 08/16/2023 2 1:50 EDT 08/17/2023 16:03 EDT Provider Outr Resulting Lab URINALYSIS O RDERABLES [facility] [address] [place] [address] documented in this encounter Visit Diagnoses Not on filedocumented in this encounter Care Teams Senior Business Architect Relationship Specialty Start Date End Date Katia Stone PA-C [address] [place] [phone] PCP - General 05/02/17 documented as of this encounter
--- OUTSIDE RECORDS SUMMARY | 2023-12-15 14:23 | XMS_ITS | Encounter Summary ---
Author Organization [facility] Address [address] [place] [address] Care Team Providers Care Project Geophysicist Name Role Phone Katia Stone PA-C Primary Care Provider +1- [phone] Encounter Details Date Type Department Care Team (Late st Contact Info) Description 09/14/2020 Results Only [facility] [phone] Rowan Abad, TAIWO [address] [place] [phone] Social History Tobacco Use Types Packs/Day [...] - 450 10 3/uL 09/14/2020 6:07 EDT [facility] 09/14/2020 5:35 EDT 09/14/2020 5:46 EDT Narrative [facility] - 09/14/2020 6:16 EDT Comment ENOXAPARIN MONITORING Rowan Abad NP HEMATOLOGY & PF4 ORD ERABLES Performing Organization Address City/State/[facility] Co de Phone Number [facility] [address] [place] [address] * (ABNORMAL) CREATININE WITH GFR - PMC (09/14/2020 5:35 EDT) Creatinine 0.58(L) 0.70 - 1.30 mg/dl 09/14/2020 6:09 EDT [facility] Estimated GFR >60 >60 09/14/2020 6:09 T [facility] Comment: EGFR UNITS: mL/min/1.73 m 2 CKD-EPI Equation used to calculate. 09/14/2020 5:35 EDT 09/14/2020 5:46 EDT Rowan Abad NP CHEMISTRY & BLOOD GA S ORDERABLES [facility] [address] [place] [address] documented in this encounter Visit Diagnoses Not on filedocumented in this encounter Care Teams Project Geophysicist Relationship Specialty Start Date End Date Katia Stone, MINGO [address] [place] [phone] PCP - General 05/02/17 documented as of this encounter
--- OUTSIDE RECORDS SUMMARY | 2023-12-15 14:23 | XMS_ITS | Encounter Summary ---
Author Organization [facility] Address [address] [place] [address] Care Team Providers Care Undercover Agent Name Role Phone Katia Stone PA-C Primary Care Provider +1- [phone] Encounter Details Date Type Department Care Team (Late st Contact Info) Description 08/10/2020 Results Only [facility] Rheumatology [address] [place] [address] Ester Valerio MD [address] [facility] [address] [place] [phone] Social History Tobacco Use Types Packs/Day Years [...] 1.8 - 2.4 mg/dl 08/10/2020 6:13 EDT [facility] 08/10/2020 5:35 EDT 08/10/2020 5:42 EDT Ester Valerio MD CHEMISTRY & BLOO D GAS ORDERABLES [facility] [address] [place] [address] * (ABNORMAL) BASIC METABOLIC PANEL (BMP) (08/10/2020 5:35 EDT) Sodium 133(L) 136 - 145 mEq/L 08/10/2020 6:13 EDT [facility] Potassium 3.4(L) 3.5 - 5.1 mEq/L 08/10/2020 6:13 EDT [facility] Chloride 98 96 - 107 mEq/L 08/10/2020 6:13 [facility] CO2 Total 27.2 21 - 32 mEq/L 08/10/2020 6:13 [facility] Anion Gap 7.8 mEq/L 08/10/2020 6:13 [facility] BUN 6(L) 7 - 25 mg/dl 08/10/2020 6:13 [facility] Creatinine 0.54(L) 0.70 - 1.30 mg/dl 08/10/2020 6:13 [facility] Estimated GFR >60 >60 08/10/2020 6:13 [facility] Comment: EGFR UNITS: mL/min/1.73 m 2 CKD-EPI Equation used to calculate. Glucose 86 74 - 106 mg/dl 08/10/2020 6:13 [facility] Calcium 7.7(L) 8.5 - 10.1 mg/dl 08/10/2020 6:13 [facility] 08/10/2020 5:35 EDT 08/10/2020 5:42 EDT Ester Valerio MD CHEMISTRY & BLOO D GAS ORDERABLES [facility] [address] [place] [address] * (ABNORMAL) HEPATIC FUNCTION PANEL (ALB,ALK PHOS,ALT,AST,DBIL,TOT BOSSMAN,TOT PROT) (08/10/2020 5:35 EDT) BILIRUBIN - PMC 0.90 0.00 - 1.00 mg/dl 08/10/2020 6:13 [facility] DIRECT BILIRUBIN - PMC 0.50(H) 0.00 - 0.30 mg/dl 08/10/2020 6:13 [facility] INDIRECT BILIRUBIN - PMC 0.40 0.00 - 0.80 mg/dl 08/10/2020 6:13 [facility] AST 50(H) 15 - 37 U/L 08/10/2020 6:13 [facility] ALT 37 16 - 63 U/L 08/10/2020 6:13 [facility] Alkaline Phosphatase 97 46 - 116 U/L 08/10/2020 6:13 [facility] Total Protein 6.1(L) 6.4 - 8.2 g/dl 08/10/2020 6:13 [facility] Albumin 2.3(L) 3.4 - 5.0 g/dl 08/10/2020 6:13 [facility] GLOBULIN - PMC 3.8 g/dl 08/10/2020 6:13 [facility] ALBUMIN/GLOBULIN RATIO - PMC 0.6 08/10/2020 6:13 [facility] 08/10/2020 5:35 EDT 08/10/2020 5:42 EDT Ester Valerio MD CHEMISTRY & BLOO D GAS ORDERABLES Performing Organization Address City/State/[facility] Co de Phone Number [facility] [address] [place] [address] * (ABNORMAL) COMPLETE BLOOD COUNT AND DIFFERENTIAL (08/10/2020 5:35 EDT) WBC 7.0 4.0 - 10.5 10 3/uL 08/10/2020 5:58 [facility] RBC 2.72(L) 4.70 - 6.00 10 6/uL 08/10/2020 5:58 [facility] Hemoglobin 9.7(L) 13.5 - 18.0 g/dL 08/10/2020 5:58 [facility] HCT 27.9(L) 42.0 - 52.0 % 08/10/2020 5:58 [facility] MCV 102.6(H) 78 - 100 fL 08/10/2020 5:58 [facility] MCH 35.7(H) 27 - 31 pg 08/10/2020 5:58 [facility] MCHC 34.8 32 - 37 g/dL 08/10/2020 5:58 [facility] RDW-CV - PMC 14.7 <14.7 % 08/10/2020 5:58 [facility] PLATELET COUNT - PMC 180 150 - 450 10 3/uL 08/10/2020 5:58 [facility] MPV 11.0 9.2 - 12.0 fL 08/10/2020 5:58 [facility] NEUTROPHILS % (AUTO) - PMC 65.5 % 08/10/2020 5:58 [facility] LYMPHOCYTES % (AUTO) - PMC 17.5 % 08/10/2020 5:58 [facility] MONOCYTES % (AUTO) - PMC 13.9 % 08/10/2020 5:58 [facility] EOSINOPHILS % (AUTO) - PMC 2.1 % 08/10/2020 5:58 [facility] BASOPHILS % (AUTO) - PMC 0.4 % 08/10/2020 5:58 [facility] Immature Granulocyte % (Auto) 0.6 % 08/10/2020 5:58 [facility] NUCLEATED RBC % (AUTO) - PMC 0.0 % 08/10/2020 5:58 [facility] NEUTROPHILS # (AUTO) - PMC 4.6 1.5 - 6.6 10 3/uL 08/10/2020 5:58 [facility] LYMPHOCYTES # (AUTO) - PMC 1.2 1.0 - 3.5 10 3/uL 08/10/2020 5:58 [facility] MONOCYTES # (AUTO) - PMC 1.0 <1.0 10 3/uL 08/10/2020 5:58 [facility] EOSINOPHILS # (AUTO) - PMC 0.2 <0.7 10 3/uL 08/10/2020 5:58 [facility] Absolute Immature Granulocyte 0.04 <0.06 10 3/uL 08/10/2020 5:58 [facility] DIFFERENTIAL METHOD Auto Differential 08/10/2020 5:44 [facility] 08/10/2020 5:35 EDT 08/10/2020 5:43 EDT Ester Valerio MD PACKAGES & DNA P ANETA ORDERABLES [facility] [address] [place] [address] documented in this encounter Visit Diagnoses Not on filedocumented in this encounter Care Teams Undercover Agent Relationship Specialty Start Date End Date Katia Stone, PABijalC [address] [place] [address] PCP - General 05/02/17 documented as of this encounter
--- OUTSIDE RECORDS SUMMARY | 2023-12-15 14:23 | XMS_ITS | Encounter Summary ---
Author Organization [facility] Address [address] [place] [address] Care Team Providers Care Parts Salvager Name Role Phone Katia Stone PA-C Primary Care Provider +1- [phone] Encounter Details Date Type Department Care Team (Late st Contact Info) Description 08/25/2020 Results Only [facility] [phone] Rowan Abad, TAIWO [address] [place] [phone] Social History Tobacco Use Types Packs/Day [...] ID FROM PLATE - [facility] Routine 08/25/2020 14:15 EDT HSV (HERPES SIMPLEX [...] SWATI RESULTS/ORGANISM ID - [facility] Few Usual skin jesi 08/27/2020 17:20 EDT [facility] Comment: Spec Description ?? Additional Information:: LEFT ARM Source:ARM Test performed [place] [address] 08/25/2020 14:1 5 EDT 08/25/2020 14:34 EDT Narrative [facility] - 08/27/2020 17:20 EDT ARM LEFT ARM Rowan Abad NP MICROBIOLOGY - GENER AL ORDERABLES [facility] [address] [place] [address] * HERPES SIMPLEX VIRUS MOLECULAR DETECTION, PCR (08/25/2020 14:15 EDT) HERPES SIMPLEX VIRUS I DNA - PMC Negative Negative 08/26/2020 17:21 EDT [facility] HERPES SIMPLEX VIRUS 2 DNA - PMC Negative Negative 08/26/2020 19:39 EDT [facility] Comment: SOURCE:: ARM Spec Description ?? Additional Information:: LEFT ARM Source:LEFT ARM Test performed [place] [address] 08/25/2020 14:1 5 EDT 08/25/2020 14:35 EDT [facility] - 08/26/2020 19:39 EDT ARM LEFT ARM Rowan Abad NP MICROBIOLOGY - GENER AL ORDERABLES Performing Organization Address [facility] Co de Phone Number [facility] [address] [place] [phone] * (ABNORMAL) CREATININE WITH GFR - PMC [...] BLOOD GA S ORDERABLES Performing Organization Address City/[facility]/ZIP Co de Phone Number [facility] [address] [place] [phone] * PLATELET COUNT (08/25/2020 6:09 EDT) [facility] PLATELET COUNT - [facility] 326 150 - 450 10 3/uL 08/25/2020 7:02 EDT [facility] 08/25/2020 6:09 EDT 08/25/2020 6:44 EDT [facility] - 08/25/2020 7:06 EDT Comment ENOXAPARIN MONITORING Rowan Abad GROCERY STOCK CLERK HEMATOLOGY & PF4 ORD ERABLES [facility] [address] [place] [address] documented in this encounter Visit Diagnoses Not on filedocumented in this encounter Care Teams Parts Salvager Relationship Specialty Start Date End Date Katia Stone, MINGO [address] [facility] [place] [place] [phone] PCP - General 05/02/17 documented as of this encounter
--- OUTSIDE RECORDS SUMMARY | 2023-12-15 14:23 | XMS_ITS | Encounter Summary ---
Author Organization [facility] Address [address] [place] [address] Care Team Providers Care Vehicle Damage Appraiser Name Role Phone Katia Stone PA-C Primary Care Provider +1- [phone] Encounter Details Date Type Department Care Team (Late st Contact Info) Description 02/01/2022 Lab Requisition [facility] Pathology & Laboratory Medicine - [address] [address] Outr Resulting Lab, Provider Social History Tobacco [...] Result (FLARES) Negative Negative 02/02/2022 1:45 EST [facility] FLU B RNA Result (FLBRES) Negative Negative 02/02/2022 1:45 EST [facility] RSV RNA Result (RSVRES) Positive(A) Negative 02/02/2022 1:45 EST [facility] Swab ENTIRE NASOPHARYNX / Unknown 01/31/2022 9:47 EST 02/01/2022 20:34 EST Provider Outr Resulting Lab MICROBIOLOGY - GENERAL ORDERABLES Performing Organization Address City/State/[facility] Co de Phone Number [facility] [address] [place] [address] documented in this encounter Visit Diagnoses Not on filedocumented in this encounter Additional Health Concerns Infection Onset Date Last Indicated Resolved Time RSV 01/31/2022 01/31/2022 02/10/2022 22:1 5 EST documented as of this encounter Care Teams Vehicle Damage Appraiser Relationship Specialty Start Date End Date Katia Stone, PABijalC [address] [facility] [place] [facility] [place] [id number] PCP - General 05/02/17 documented as of this encounter
--- OUTSIDE RECORDS SUMMARY | 2023-12-15 14:23 | XMS_ITS | Encounter Summary ---
Author Organization [facility] Address [address] [place] [address] Care Team Providers Care Manager Transport Name Role Phone Katia Stone PA-C Primary Care Provider +1- [phone] Reason for Visit * (Routine/Next Available) - New Request Specialty Diagnoses / Procedures Referred By Contac t Referred To Contact Procedures CT OUTSIDE IMAGES BODY Unknown, Provider, Referral ID Status Reason Start Date Expiration Date V isits Requested Visits Authorized [id number] New Request 06/20/2021 1 1 Encounter Details Date Type Department Care Team (Latest Contact Info) Description 06/20/2021 15:36 EDT - 06/20/2021 23:59 EDT Hospital Encounter [facility] Secondary Reads [place] Discharge Disposition: Home or [...] filedocumented in this encounter Care Teams Manager Transport Relationship Specialty Start Date End Date Katia Stone, PABijalC [address] [place] [phone] PCP - General 05/02/17 documented as of this encounter
--- OUTSIDE RECORDS SUMMARY | 2023-12-15 14:23 | XMS_ITS | Encounter Summary ---
Author Organization [facility] Address [address] [place] [address] Care Team Providers Care Programming Instructor Name Role Phone Katia Stone PA-C Primary Care Provider +1- [phone] Encounter Details Date Type Department Care Team (Late st Contact Info) Description 08/12/2020 Results Only [facility] Rheumatology [address] [place] [address] Ester Valerio MD 130 [facility] [address] [place] [phone] Social History Tobacco Use Types Packs/Day Years [...] 1.8 - 2.4 mg/dl 08/12/2020 7:37 EDT [facility] 08/12/2020 6:48 EDT 08/12/2020 7:00 EDT Ester Valerio MD CHEMISTRY & BLOO D GAS ORDERABLES Performing Organization Address City/State/[facility] Co de Phone Number [facility] [address] [place] [address] * (ABNORMAL) BASIC METABOLIC PANEL (BMP) (08/12/2020 6:48 EDT) Sodium 135(L) 136 - 145 mEq/L 08/12/2020 7:37 EDT [facility] Potassium 3.2(L) 3.5 - 5.1 mEq/L 08/12/2020 7:37 EDT [facility] Chloride 101 96 - 107 mEq/L 08/12/2020 7:37 EDT [facility] CO2 Total 28.8 21 - 32 mEq/L 08/12/2020 7:37 [facility] Anion Gap 4.2 mEq/L 08/12/2020 7:37 [facility] BUN 5(L) 7 - 25 mg/dl 08/12/2020 7:37 [facility] Creatinine 0.50(L) 0.70 - 1.30 mg/dl 08/12/2020 7:37 [facility] Estimated GFR >60 >60 08/12/2020 7:37 [facility] Comment: EGFR UNITS: mL/min/1.73 m 2 CKD-EPI Equation used to calculate. Glucose 102 74 - 106 mg/dl 08/12/2020 7:37 [facility] Calcium 7.9(L) 8.5 - 10.1 mg/dl 08/12/2020 7:37 [facility] 08/12/2020 6:48 EDT 08/12/2020 7:00 EDT Ester Valerio MD CHEMISTRY & BLOO D GAS ORDERABLES [facility] [address] [place] [address] * (ABNORMAL) HEPATIC FUNCTION PANEL (ALB,ALK PHOS,ALT,AST,DBIL,TOT BOSSMAN,TOT PROT) (08/12/2020 6:48 EDT) BILIRUBIN - PMC 0.50 0.00 - 1.00 mg/dl 08/12/2020 7:37 [facility] DIRECT BILIRUBIN - PMC 0.20 0.00 - 0.30 mg/dl 08/12/2020 7:37 [facility] INDIRECT BILIRUBIN - PMC 0.30 0.00 - 0.80 mg/dl 08/12/2020 7:37 [facility] AST 31 15 - 37 U/L 08/12/2020 7:37 [facility] ALT 25 16 - 63 U/L 08/12/2020 7:37 [facility] Alkaline Phosphatase 99 46 - 116 U/L 08/12/2020 7:37 EDT [facility] Total Protein 5.9(L) 6.4 - 8.2 g/dl 08/12/2020 7:37 EDT [facility] Albumin 2.2(L) 3.4 - 5.0 g/dl 08/12/2020 7:37 EDT [facility] GLOBULIN - PMC 3.7 g/dl 08/12/2020 7:37 EDT [facility] ALBUMIN/GLOBULIN RATIO - PMC 0.5 08/12/2020 7:37 EDT [facility] 08/12/2020 6:48 EDT 08/12/2020 7:00 EDT Ester Valerio MD CHEMISTRY & BLOO D GAS ORDERABLES [facility] [address] [place] [address] documented in this encounter Visit Diagnoses Not on filedocumented in this encounter Care Teams Programming Instructor Relationship Specialty Start Date End Date Katia Stone, PABijalC [address] [place] [phone] PCP - General 05/02/17 documented as of this encounter
--- OUTSIDE RECORDS SUMMARY | 2023-12-15 14:23 | XMS_ITS | Encounter Summary ---
Author Organization [facility] Address [address] [place] [address] Care Team Providers Care Risk Mgr Name Role Phone Katia Stone PA-C Primary Care Provider +1- [phone] Encounter Details Date Type Department Care Team (Late st Contact Info) Description 06/23/2021 Lab Requisition [facility] Pathology & Laboratory Medicine - [address] [id number] Outr Resulting Lab, Provider Social History Tobacco [...] Urine 509 150-1,150 mOsm/kg 06/23/2021 21:[address] [facility] Urine URINE SPECIMEN COLLECTION, CLEAN CATCH / Unknown 06/23/2021 4:00 EDT 06/23/2021 21:40 EDT Provider Outr Resulting Lab URINALYSIS O RDERABLES [facility] [address] [place] [address] documented in this encounter Visit Diagnoses Not on filedocumented in this encounter Additional Health Concerns Infection Onset Date Last Indicated Resolved Time RSV 01/31/2022 01/31/2022 02/10/2022 22:1 5 EST documented as of this encounter Care Teams Risk Mgr Relationship Specialty Start Date End Date Katia Stone, BELLAC [address] [place] [phone] PCP - General 05/02/17 documented as of this encounter
--- OUTSIDE RECORDS SUMMARY | 2023-12-15 14:23 | XMS_ITS | Encounter Summary ---
Author Organization [facility] Address [address] [place] [address] Care Team Providers Care Full Stack Web Developer Name Role Phone Katia Stone PA-C Primary Care Provider +1- [phone] Encounter Details Date Type Department Care Team (Late st Contact Info) Description 09/02/2020 Results Only [facility] [phone] Rowan Abad, TAIWO [address] [place] [phone] Social History Tobacco Use Types Packs/Day [...] 0.70 - 1.30 mg/dl 09/02/2020 7:12 EDT [facility] Estimated GFR >60 >60 09/02/2020 7:12 EDT [facility] Comment: EGFR UNITS: mL/min/1.73 m 2 CKD-EPI Equation used to calculate. 09/02/2020 6:18 EDT 09/02/2020 6:44 EDT Rowan Abad NP CHEMISTRY & BLOOD GA S ORDERABLES Performing Organization Address City/[facility]/ZIP Co de Phone Number [facility] [address] [place] [address] * PLATELET COUNT (09/02/2020 6:18 EDT) PLATELET COUNT - [facility] 247 150 - 450 10 3/uL 09/02/2020 6:57 EDT [facility] 09/02/2020 6:18 EDT 09/02/2020 6:44 EDT Narrative [facility] - 09/02/2020 7:06 EDT Comment ENOXAPARIN MONITORING Rowan Abad NP HEMATOLOGY & PF4 ORD ERABLES [facility] [address] [place] [address] documented in this encounter Visit Diagnoses Not on filedocumented in this encounter Care Teams Full Stack Web Developer Relationship Specialty Start Date End Date Katia Stone, MINGO [address] [place] [phone] PCP - General 05/02/17 documented as of this encounter
--- OUTSIDE RECORDS SUMMARY | 2023-12-15 14:23 | XMS_ITS | Encounter Summary ---
Author Organization [facility] Address [address] [place] [address] Care Team Providers Care Hide Stretcher Hand Name Role Phone Katia Stone PA-C Primary Care Provider +1- [phone] Reason for Visit * Reason Onset Date Comments Discuss Possible Transfer 06/20/2021 Encounter Details Date Type Department Care Team (Late st Contact Info) Description 06/20/2021 Telephone [facility] [address] [place], [place] [phone] Amos Romero MD [address] [phone] Discuss Possible Transfer Social History [...] 06/20/2021 1415 EDT PPS Call Requesting Facility: [facility] Requesting Provider: Dr. Alegria Date: 06/20/21 [...] effusion (per read from imaging 08/08/20 from [facility], this is chronic) and R iliac + [...] filedocumented in this encounter Care Teams Hide Stretcher Hand Relationship Specialty Start Date End Date Katia Stone, PABijalC [address] [place] [phone] PCP - General 05/02/17 documented as of this encounter
--- OUTSIDE RECORDS SUMMARY | 2023-12-15 14:23 | XMS_ITS | Encounter Summary ---
Author Organization [facility] Address [address] [place] [address] Care Team Providers Care Labor Relations Teacher Name Role Phone Katia Stone PA-C Primary Care Provider +1- [phone] Reason for Visit * Reason Comments Diarrhea Extremity Weakness Alcohol Problem Palliative Care Symptom Management Encounter Details Date Type Department Care Team (Late st Contact Info) Description 08/25/2020 External Contact [facility] [address] [place], [place] [address] Keara Stinson MD [address] [facility] [place] [address] [place] [address] Frailty (Primary Dx); ETOH abuse; [...] be receptive to formal psychotherapy. A bereavement paper machine back tender through [facility] [employer] [facility] may be a good fit as well. Re: his advance directive. 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 Present for Visit: Tim, [...] his heart attack and was transferred to [place]. He has had several cardiac issues since. He is originally from [place] and lived in the [place] area until 2018 when his medical issues became more acute. Since then, he has lived in [place], had lived with his son Tyrese until his and more recently living with Tyrese's partner Whitney. He was raised on a farm in [place] with 7 siblings. He farmed himself, [...] Stinson MD 08/25/2020 16:11 Site of Visit: [facility] I spent a total of 55 [...] specialist documented in this encounter Care Teams Labor Relations Teacher Relationship Specialty Start Date End Date Katia Stone, BELLAC [address] [place] [address] PCP - General 05/02/17 documented as of this encounter
--- OUTSIDE RECORDS SUMMARY | 2023-12-15 14:24 | XMS_ITS | Encounter Summary ---
Author Organization [facility] Address [address] [place] [address] Care Team Providers Care Mixer Lever Operator Name Role Phone Katia Stone PA-C Primary Care Provider +1- [phone] Encounter Details Date Type Department Care Team (Late st Contact Info) Description 01/17/2020 Results Only [facility] [phone] Jayesh Olmos MD [address] [place] [phone] Social History Tobacco Use Types Packs/Day [...] Cortisol, S SEE COMMENTS 01/18/2020 17:25 EST [facility] Comment: Test ?Result ?Flag ??Unit ?RefValue Cortisol, S ??AM Result ? 11 ?mcg/dL ??7-25 Test Performed by: [facility] [address] [place] [address] Specialty Foods Cook: Pierre Andersen M.D. Ph.D.; CLIA# [id number] 01/17/2020 7:50 EST 01/17/2020 7:51 EST Jayesh Olmos MD CHEMISTRY & BLO OD GAS ORDERABLES [facility] [address] [place] [address] * (ABNORMAL) BASIC METABOLIC PANEL,RANDOM - PMC (01/17/2020 7:50 EST) [facility] Sodium 130(L) 136 - 145 mEq/L 01/17/2020 8:13 [facility] Potassium 3.7 3.5 - 5.1 mEq/L 01/17/2020 8:13 [facility] Chloride 95(L) 96 - 107 mEq/L 01/17/2020 8:13 [facility] CO2 Total 27.4 21 - 32 mEq/L 01/17/2020 8:13 [facility] Anion Gap 7.6 mEq/L 01/17/2020 8:13 [facility] BUN 10 7 - 25 mg/dl 01/17/2020 8:13 [facility] Creatinine 0.62(L) 0.70 - 1.30 mg/dl 01/17/2020 8:13 [facility] Estimated GFR >60 >60 01/17/2020 8:18 [facility] Comment: EGFR UNITS: mL/min/1.73 m 2 CKD-EPI Equation used to calculate. Glucose 91 70 - 180 mg/dl 01/17/2020 8:13 [facility] Calcium 8.4(L) 8.5 - 10.1 mg/dl 01/17/2020 8:13 [facility] 01/17/2020 7:50 EST 01/17/2020 7:51 EST Jayesh Olmos MD CHEMISTRY & BLO OD GAS ORDERABLES Performing Organization Address City/State/[facility] Co de Phone Number [facility] [address] [place] [address] documented in this encounter Visit Diagnoses Not on filedocumented in this encounter Care Teams Mixer Lever Operator Relationship Specialty Start Date End Date Katia Stone PABijalC [address] [facility] [place] [facility] [place] [address] PCP - General 05/02/17 documented as of this encounter
--- OUTSIDE RECORDS SUMMARY | 2023-12-15 14:24 | XMS_ITS | Encounter Summary ---
Author Organization [facility] Address [address] [place] [address] Care Team Providers Care Plaster Whittler Name Role Phone Katia Stone PA-C Primary Care Provider +1- [phone] Reason for Visit * Reason Onset Date Comments Other 06/13/2020 Encounter Details Date Type Department Care Team (Late st Contact Info) Description 06/13/2020 Telephone [facility] Cardiothoracic Surgery - [address] [address] Cat Sutherland RN Other Social History Tobacco [...] for surgery at 1210 on 06/26. His Schedule Clerk with PCP is setting up his ride for [place] on 06/26 and for his COVID test that will need to be done 3-4 days prior to surgery. Patient verbalized understanding. I called the patient's Schedule Clerk at [facility] at [phone] and left her a message (Maru Villalobos, TISH). She will be arranging his ride to [place] on [address] and for his COVID test. I have updated our RN CLINICAL APPEALS and Beulah FAIR CM at [facility] as well. documented in this encounter Plan of Treatment Not on file documented as of this encounter Visit Diagnoses Not on filedocumented in this encounter Care Teams Plaster Whittler Relationship Specialty Start Date End Date Katia Stone, BELLAC [address] [place] [phone] PCP - General 05/02/17 documented as of this encounter
--- OUTSIDE RECORDS SUMMARY | 2023-12-15 14:24 | XMS_ITS | Encounter Summary ---
Author Organization [facility] Address [address] [place] [address] Care Team Providers Care Poultry Buyer Name Role Phone Katia Stone PA-C Primary Care Provider +1- [phone] Encounter Details Date Type Department Care Team (Late st Contact Info) Description 01/13/2020 Results Only [facility] [phone] Jayesh Olmos MD [address] [place] [phone] Social History Tobacco Use Types Packs/Day [...] 136 - 145 mEq/L 01/13/2020 19:16 EST [facility] 01/13/2020 18:5 0 EST 01/13/2020 18:52 EST Jayesh Olmos MD CHEMISTRY & BLO OD GAS ORDERABLES Performing Organization Address [facility] Co de Phone Number [facility] [address] [place] [address] * (ABNORMAL) SODIUM (01/13/2020 13:12 EST) Sodium 126(L) 136 - 145 mEq/L 01/13/2020 13:32 EST [facility] 01/13/2020 13:1 2 EST 01/13/2020 13:15 EST Jayesh Olmos MD CHEMISTRY & BLO OD GAS ORDERABLES Performing Organization Address [facility] de Phone Number [facility] [address] [place] [address] documented in this encounter Visit Diagnoses Not on filedocumented in this encounter Care Teams Poultry Buyer Relationship Specialty Start Date End Date Katia Stone PA-C [address] [place] [address] PCP - General 05/02/17 documented as of this encounter
--- OUTSIDE RECORDS SUMMARY | 2023-12-15 14:24 | XMS_ITS | Encounter Summary ---
Author Organization [facility] Address [address] [place] [address] Care Team Providers Care Sales Training Coordinator Name Role Phone Katia Stone PA-C Primary Care Provider +1- [phone] Encounter Details Date Type Department Care Team (Late st Contact Info) Description 05/16/2020 Documentation Visit [facility] Infectious Disease - [address] [address] [facility] [address] [address] Social History Tobacco Use Types [...] - 05/16/2020 0947 EDT Upon entering the [facility], patient answered yes to one of [...] patient sent to appointment. Kem Thomson RN, [id number] documented in this encounter Plan of Treatment Not on file documented as of this encounter Visit Diagnoses Not on filedocumented in this encounter Care Teams Sales Training Coordinator Relationship Specialty Start Date End Date Katia Stone, MINGO [address] [place] [phone] PCP - General 05/02/17 documented as of this encounter
--- OUTSIDE RECORDS SUMMARY | 2023-12-15 14:24 | XMS_ITS | Encounter Summary ---
Author Organization [facility] Address [address] [place] [address] Care Team Providers Care Toe Puller Name Role Phone Katia Stone PA-C Primary Care Provider +1- [phone] Encounter Details Date Type Department Care Team (Late st Contact Info) Description 01/12/2020 Results Only [facility] [address] [place] [address] Jayesh Olguin MD [address] [place] [address] Social History Tobacco Use Types [...] TEST ORDERABLES [facility] [address] [place] [address] * (ABNORMAL) ETHYL ALCOHOL LEVEL - PMC [...] 01/12/2020 22:3 0 EST 01/12/2020 23:03 EST [facility] - 01/12/2020 23:47 EST Sample collected at time of saline lock or IV placement. Jayesh Olguin MD CHEMISTRY & BLOOD G ORDERABLES Performing Organization Address [facility] de Phone Number [facility] [address] [place] [address] * TROPONIN I (01/12/2020 22:30 EST) Pathologist [facility] Troponin I (ng/mL) <0.050 0 - [...] 01/12/2020 22:3 0 EST 01/12/2020 23:03 EST [facility] - 01/12/2020 23:47 EST Sample collected at time of saline lock or IV placement. Jayesh Olguin MD CHEMISTRY & BLOOD G ORDERABLES Performing Organization Address [facility] Co de Phone Number [facility] [address] [place] [address] * (ABNORMAL) BASIC METABOLIC PANEL,RANDOM - PMC (01/12/2020 22:30 EST) Pathologist [facility] Sodium 116(CRIT LOW) 136 - 145 mEq/L 01/12/2020 23:33 [facility] Comment: Results called and read back to me by: Location: ED Full name: DEBBIE JOSHUA Credentials: RN at 2332 on 01/12/20 by TESS. Potassium 4.3 3.5 - 5.1 mEq/L 01/12/2020 23:32 [facility] Chloride 83(L) 96 - 107 mEq/L 01/12/2020 23:32 [facility] CO2 Total 24.6 21 - 32 mEq/L 01/12/2020 23:32 [facility] Anion Gap 10.4 mEq/L 01/12/2020 23:32 [facility] BUN 5(L) 7 - 25 mg/dl 01/12/2020 23:32 [facility] Creatinine 0.62(L) 0.70 - 1.30 mg/dl 01/12/2020 23:32 [facility] Estimated GFR >60 >60 01/12/2020 23:33 [facility] Comment: EGFR UNITS: mL/min/1.73 m 2 CKD-EPI Equation used to calculate. Glucose 89 70 - 180 mg/dl 01/12/2020 23:32 [facility] Calcium 8.2(L) 8.5 - 10.1 mg/dl 01/12/2020 23:32 [facility] 01/12/2020 22:3 0 EST 01/12/2020 23:03 [facility] - 01/12/2020 23:47 EST Sample collected at time of saline lock or IV placement. Jayesh Olguin MD CHEMISTRY & BLOOD G ORDERABLES Performing Organization Address City/State/[facility] Co de Phone Number [facility] [address] [place] [address] * (ABNORMAL) HEPATIC FUNCTION PANEL (ALB,ALK PHOS,ALT,AST,DBIL,TOT BOSSMAN,TOT PROT) (01/12/2020 22:30 EST) BILIRUBIN - PMC 0.60 0.00 - 1.00 mg/dl 01/12/2020 23:32 [facility] DIRECT BILIRUBIN - PMC 0.20 0.00 - 0.30 mg/dl 01/12/2020 23:32 [facility] INDIRECT BILIRUBIN - PMC 0.40 0.00 - 0.80 mg/dl 01/12/2020 23:32 [facility] AST 74(H) 15 - 37 U/L 01/12/2020 23:32 [facility] ALT 44 16 - 63 U/L 01/12/2020 23:32 [facility] Alkaline Phosphatase 103 46 - 116 U/L 01/12/2020 23:32 [facility] Total Protein 8.1 6.4 - 8.2 g/dl 01/12/2020 23:32 [facility] Albumin 3.3(L) 3.4 - 5.0 g/dl 01/12/2020 23:32 [facility] GLOBULIN - PMC 4.8 g/dl 01/12/2020 23:32 [facility] ALBUMIN/GLOBULIN RATIO - PMC 0.6 01/12/2020 23:32 [facility] 01/12/2020 22:3 0 EST 01/12/2020 23:03 [facility] - 01/12/2020 23:47 EST Sample collected at time of saline lock or IV placement. Jayesh Olguin MD CHEMISTRY & BLOOD G ORDERABLES [facility] [address] [place] [address] * (ABNORMAL) COMPLETE BLOOD COUNT AND DIFFERENTIAL (01/12/2020 22:30 EST) WBC 5.5 4.0 - 10.5 10 3/uL 01/12/2020 23:19 [facility] RBC 3.69(L) 4.70 - 6.00 10 6/uL 01/12/2020 23:19 [facility] Hemoglobin 12.8(L) 13.5 - 18.0 g/dL 01/12/2020 23:19 [facility] HCT 35.3(L) 42.0 - 52.0 % 01/12/2020 23:19 [facility] MCV 95.7 78 - 100 fL 01/12/2020 23:19 [facility] MCH 34.7(H) 27 - 31 pg 01/12/2020 23:19 [facility] MCHC 36.3(H) 32 - 36 g/dL 01/12/2020 23:19 [facility] RDW-CV - PMC 12.6 11.0 - 14.8 % 01/12/2020 23:19 [facility] PLATELET COUNT - PMC 182 150 - 450 10 3/uL 01/12/2020 23:19 [facility] NEUTROPHILS % (AUTO) - PMC 54.5 42.0 - 75.0 % 01/12/2020 23:19 [facility] LYMPHOCYTES % (AUTO) - PMC 29.0 16.0 - 52.0 % 01/12/2020 23:19 [facility] MONOCYTES % (AUTO) - PMC 12.6(H) 1.0 - 11.0 % 01/12/2020 23:19 [facility] EOSINOPHILS % (AUTO) - PMC 2.4 0.0 - 7.0 % 01/12/2020 23:19 [facility] BASOPHILS % (AUTO) - PMC 1.1 0.0 - 4.0 % 01/12/2020 23:19 [facility] NUCLEATED RBC % (AUTO) - PMC 0.0 <1 % 01/12/2020 23:19 [facility] NEUTROPHILS # (AUTO) - PMC 3.0 1.5 - 6.6 10 3/uL 01/12/2020 23:19 [facility] LYMPHOCYTES # (AUTO) - PMC 1.6 1.0 - 3.5 10 3/uL 01/12/2020 23:19 [facility] MONOCYTES # (AUTO) - PMC 0.7 <1.0 10 3/uL 01/12/2020 23:19 [facility] EOSINOPHILS # (AUTO) - PMC 0.1 <0.7 10 3/uL 01/12/2020 23:19 [facility] BASOPHILS # (AUTO) - PMC 0.1 <0.1 10 3/uL 01/12/2020 23:19 [facility] NUCLEATED RBC # (AUTO) - PMC 0.00 <1 10 3/uL 01/12/2020 23:19 [facility] 01/12/2020 22:3 0 EST 01/12/2020 23:04 EST Narrative [facility] - 01/12/2020 23:35 EST Sample collected at time of saline lock or IV placement. Jayesh Olguin MD PACKAGES & DNA PROB E ORDERABLES [facility] [address] [place] [address] documented in this encounter Visit Diagnoses Not on filedocumented in this encounter Care Teams Toe Puller Relationship Specialty Start Date End Date Katia Stone, PABijalC [address] [place] [phone] PCP - General 05/02/17 documented as of this encounter
--- OUTSIDE RECORDS SUMMARY | 2023-12-15 14:24 | XMS_ITS | Encounter Summary ---
Author Organization [facility] Address [address] [place] [address] Care Team Providers Care Supervisor Lathing Name Role Phone Katia Stone PA-C Primary Care Provider +1- [phone] Reason for Visit * Reason Onset Date Comments Confirmation 06/19/2020 Encounter Details Date Type Department Care Team (Late st Contact Info) Description 06/19/2020 Telephone [facility] Cardiothoracic Surgery - [address] [address] Cat Sutherland RN Confirmation Social History Tobacco [...] the patient to call Maru Villalobos his Daycare Manager as she is arranging his rides for his COVID test and Surgery as well as his instructions for surgery. I also left Maru a message aswell. * Telephone Encounter - Alma Dhillon - 06/20/2020 0938 EDT FYI---Patient's President And Chief Executive Officer calls to say she is not able [...] well to Maru Villalobos RN the patient's Daycare Manager at PCP office, which she did receive. Maru had stated previously that she is arranging a ride for the patient to his COVID test 3-4 days prior to surgery and also arranging ride to [facility] on the day of surgery and will assist in helping patient understand instructions. I have called Maru Villalobos RN and left her a message to call me back on 06/20. I will also call the patient on 06/20 New phone numbers for Maru: [phone] EXT#4, EXT#[phone] Or direct line = [phone] documented in this encounter Plan of Treatment Not on file documented as of this encounter Visit Diagnoses Not on filedocumented in this encounter Care Teams Supervisor Lathing Relationship Specialty Start Date End Date Katia Stone, PABijalC [address] [place] [phone] PCP - General 05/02/17 documented as of this encounter
--- OUTSIDE RECORDS SUMMARY | 2023-12-15 14:24 | XMS_ITS | Encounter Summary ---
Author Organization [facility] Address [address] [place] [address] Care Team Providers Care Hot Packer Name Role Phone Katia Stone PA-C Primary Care Provider +1- [phone] Encounter Details Date Type Department Care Team (Late st Contact Info) Description 01/16/2020 Results Only Imaging [facility] Radiology Results [address] [place] [address] Jayesh Olmos MD [address] [place] [address] Social History Tobacco Use Types [...] 13:1 9 EST Narrative 01/16/2020 13:19 EST ?[facility] ?[address] ?[place] [address] ?Diagnostic Imaging Report ? Signed ? Patient Name:DAVID FARFAN ? Date of :1950 ?MR Number:[id number] ? Age:69 ?Sex:M ? Category: CT ?Date of Exam:01/16/20 ? Procedure: CT: Thorax; with contrast ? Ordering Physician: Nickolas ([facility])Jayesh MD ?Patient ? CC: ?? Emeterio Wynne MD ?? Jayesh Olmos MD ([facility]) ?? Katia Mccallum ? PROCEDURE INFORMATION: ?? [...] the [facility] at [phone] ? Dictated by: Brenda Dixon MD ?D/ ?? 1319 ?? Transcribed by: SERGEY ?D/T: ? E-Signed by: Brenda Dixon MD ?D/ ?? 1528 ?? Procedure Note Brenda Dixon MD - 02/01/2020 [facility]: [address] [address] Diagnostic Imaging Report Signed Patient Name:DAVID FARFAN FAccount Number:[id number] Date of :1950 MRNumber:[id number] Age:69 Sex:M Category: CT Date ofExam:01/16/20 Procedure: CT: Thorax; with contrastAccession: [id number] Ordering Physician: Nickolas ([facility])Jayesh MD Patient CC: Emeterio Wynne MD, Michael MD ([facility]) Katia Mccallum PROCEDURE INFORMATION: Exam: CT Chest [...] Pleural space: Loculated left pleural effusion posterolaterally [id number] by 5.4 cm in greatest transverse dimension. [...] questions regarding this report, please contact the [facility] at [phone] Dictated by: Brenda Dixon MDD/ 1319 Transcribed by: ANA/T: E-Signed by: Brenda Dixon MDD/ 1528 Jayesh Olmos MD IMG CT ORDERABL ES * XR CHEST 2 VIEWS (01/16/2020 9:51 EST) Anatomical Region Laterality Modality Computed Radiogr aphy 01/16/2020 9:51 EST Narrative 01/16/2020 9:51 EST ?[facility] ?[address] ?[place] [address] ?Diagnostic Imaging Report ? Signed ? Patient Name:DAVID FARFAN ? Date of :1950 ?MR Number:[id number] ? Age:69 ?Sex:M ? Category: CR ?Date of Exam:11/15/20 ? Procedure: CR: Chest; Frontal/LAT views ? 923 ? Ordering Physician: Nickolas (MARBELLA),Jayesh Coburn MD ?Patient ? CC: ?? Emeterio Wynne MD ?? Jayesh Olmos MD ([facility]) ?? Katia Mccallum ? PROCEDURE INFORMATION: ?? [...] the [facility] at [phone] ? Dictated by: Brenda Dixon MD ?D/ ?? 0951 ?? Transcribed by: SERGEY ?D/T: ? E-Signed by: Brenda Dixon MD ?D/ ?? 1121 ?? Procedure Note Brenda Dixon MD - 02/01/2020 [facility]: [address] [address] Diagnostic Imaging Report Signed Patient Name:DAVID FARFAN FAccount Number:[id number] Date of :1950 MRNumber:[id number] Age:69 Sex:M Category: CR Date ofExam:01/16/20 Procedure: CR: Chest; Frontal/LAT viewsAccession: [id number] Ordering Physician: Nickolas ([facility])Jayesh MD Patient CC: Emeteiro Wynne MD, Michael MD ([facility]) Katia Mccallum PROCEDURE INFORMATION: Exam: XR Chest, [...] questions regarding this report, please contact the [facility] at [phone] Dictated by: Brenda Dixon/ 0951 Transcribed by: ANA/T: E-Signed by: Brenda Dixon MDD/ 1121 Jayesh Olmos MD IMG DIAGNOSTIC IMAGING ORDERABLES documented in this encounter Visit Diagnoses Not on filedocumented in this encounter Additional Health Concerns Infection Onset Date Last Indicated Resolved Time RSV 01/31/2022 01/31/2022 02/10/2022 22:1 5 EST documented as of this encounter Care Teams Hot Packer Relationship Specialty Start Date End Date Katia Stone, PABijalC [address] [place] [phone] PCP - General 05/02/17 documented as of this encounter
--- OUTSIDE RECORDS SUMMARY | 2023-12-15 14:24 | XMS_ITS | Encounter Summary ---
Author Organization [facility] Address [address] [place] [address] Care Team Providers Care Health Promotion Specialist Name Role Phone Katia Stone PA-C Primary Care Provider +1- [phone] Reason for Visit * Reason Onset Date Comments Other 06/21/2020 patient wants to cancel surgery Encounter Details Date Type Department Care Team (Late st Contact Info) Description 06/21/2020 Telephone [facility] Cardiothoracic Surgery - [facility] [address] [place] [address] Ja Browne MD [address] [place], [place] [phone] Other (patient wants to cancel surgery) Social [...] with (Whitney). Pt was called by his Cheesemaking Laborer on 06/21 x 2 and finally Maru Villalobos the Cheesemaking Laborer sent the State Police to his house per Maru to do a welfare check as he doesn't follow instructions or return calls per Maru. He didn't go fora covid test and the ride was set up for him by Maru Cheesemaking Laborer and he cancelled it. He states he [...] Melania Dumas - 06/21/2020 1350 EDT Nila (Analytical Technician) from [place] calling to advise that patient wants to cancel surgery on Friday06/26/2020 as he believes he has pneumonia. Per Nila, patient has not been seen by anyone and declinedcalling ambulance to take him to ED. documented in this encounter Plan of Treatment Not on file documented as of this encounter Visit Diagnoses Not on filedocumented in this encounter Care Teams Health Promotion Specialist Relationship Specialty Start Date End Date Katia Stone, MINGO [address] [place] [phone] PCP - General 05/02/17 documented as of this encounter
--- OUTSIDE RECORDS SUMMARY | 2023-12-15 14:24 | XMS_ITS | Encounter Summary ---
Author Organization [facility] Address [address] [place] [address] Care Team Providers Care Metal Mine Inspector Name Role Phone Katia Stone PA-C Primary Care Provider +1- [phone] Encounter Details Date Type Department Care Team (Late st Contact Info) Description 01/14/2020 Results Only [facility] [address] [place] [address] Unknown, Provider, Social History Tobacco Use Types [...] reasons. 01/14/2020 5:30 EST 01/14/2020 5:54 EST [facility] - 01/14/2020 6:37 [...] Unknown MD HEMATOLOGY & PF4 ORD ERABLES [facility] [address] [place] [address] * (ABNORMAL) SODIUM (01/14/2020 2:07 EST) Sodium 121(L) 136 - 145 mEq/L 01/14/2020 2:30 [facility] 01/14/2020 2:07 EST 01/14/2020 2:13 EST Narrative [facility] - 01/14/2020 2:41 EST Sample collected from saline lock with discard per protocol by non-laboratory staff. Provider Unknown CHEMISTRY & BLOOD GA S ORDERABLES Performing Organization Address City/State/[facility] Co de Phone Number [facility] [address] [place] [address] documented in this encounter Visit Diagnoses Not on filedocumented in this encounter Care Teams Metal Mine Inspector Relationship Specialty Start Date End Date Katia Stone, PABijalC [address] [place] [phone] PCP - General 05/02/17 documented as of this encounter
--- OUTSIDE RECORDS SUMMARY | 2023-12-15 14:24 | XMS_ITS | Encounter Summary ---
Author Organization [facility] Address [address] [place] [address] Care Team Providers Care Envelope Sealing Machine Operator Name Role Phone Katia Stone PA-C Primary Care Provider +1- [phone] Encounter Details Date Type Department Care Team (Late st Contact Info) Description 01/14/2020 Results Only [facility] [phone] Jayesh Olmos MD [address] [place] [phone] Social History Tobacco Use Types Packs/Day [...] 136 - 145 mEq/L 01/14/2020 19:38 EST [facility] 01/14/2020 19:1 0 EST 01/14/2020 19:19 EST Jayesh Olmos MD CHEMISTRY & BLO OD GAS ORDERABLES Performing Organization Address [facility] Co de Phone Number [facility] [address] [place] [address] * (ABNORMAL) SODIUM (01/14/2020 14:55 EST) Sodium 125(L) 136 - 145 mEq/L 01/14/2020 15:17 EST [facility] 01/14/2020 14:5 5 EST 01/14/2020 14:59 EST Jayesh Olmos MD CHEMISTRY & BLO OD GAS ORDERABLES Performing Organization Address [facility]/ZIP Co de Phone Number [facility] [address] [place] [address] * (ABNORMAL) COMPLETE BLOOD COUNT (01/14/2020 5:30 EST) WBC 5.2 4.0 - 10.5 10 3/uL 01/14/2020 6:25 [facility] RBC 3.29(L) 4.70 - 6.00 10 6/uL 01/14/2020 6:25 [facility] Hemoglobin 11.5(L) 13.5 - 18.0 g/dL 01/14/2020 6:25 [facility] HCT 31.5(L) 42.0 - 52.0 % 01/14/2020 6:25 [facility] MCV 95.7 78 - 100 fL 01/14/2020 6:25 [facility] MCH 35.0(H) 27 - 31 pg 01/14/2020 6:25 [facility] MCHC 36.5(H) 32 - 36 g/dL 01/14/2020 6:25 [facility] RDW-CV - PMC 13.1 11.0 - 14.8 % 01/14/2020 6:25 [facility] PLATELET COUNT - PMC 156 150 - 450 10 3/uL 01/14/2020 6:25 [facility] 01/14/2020 5:30 EST 01/14/2020 5:54 [facility] - 01/14/2020 6:37 EST [...] Olmos MD HEMATOLOGY & PF 4 ORDERABLES [facility] [address] [place] [address] * MAGNESIUM (01/14/2020 5:30 EST) Magnesium 2.0 1.8 - 2.4 mg/dl 01/14/2020 6:30 [facility] 01/14/2020 5:30 EST 01/14/2020 5:54 EST [facility] - 01/14/2020 6:33 EST Sample [...] MD CHEMISTRY & BLO OD GAS ORDERABLES [facility] [address] [place] [address] * (ABNORMAL) BASIC METABOLIC PANEL,RANDOM - PMC (01/14/2020 5:30 EST) Sodium 122(L) 136 - 145 mEq/L 01/14/2020 6:30 [facility] Potassium 4.0 3.5 - 5.1 mEq/L 01/14/2020 6:30 [facility] Chloride 89(L) 96 - 107 mEq/L 01/14/2020 6:30 [facility] CO2 Total 28.1 21 - 32 mEq/L 01/14/2020 6:30 [facility] Anion Gap 5.9 mEq/L 01/14/2020 6:30 [facility] BUN 11 7 - 25 mg/dl 01/14/2020 6:30 [facility] Creatinine 0.71 0.70 - 1.30 mg/dl 01/14/2020 6:30 [facility] Estimated GFR >60 >60 01/14/2020 6:30 [facility] Comment: EGFR UNITS: mL/min/1.73 m 2 CKD-EPI Equation used to calculate. Glucose 101 70 - 180 mg/dl 01/14/2020 6:30 [facility] Calcium 8.2(L) 8.5 - 10.1 mg/dl 01/14/2020 6:30 [facility] 01/14/2020 5:30 EST 01/14/2020 5:54 EST [facility] - 01/14/2020 6:33 EST Sample [...] MD CHEMISTRY & BLO OD GAS ORDERABLES [facility] [address] [place] [address] documented in this encounter Visit Diagnoses Not on filedocumented in this encounter Care Teams Envelope Sealing Machine Operator Relationship Specialty Start Date End Date Katia Stone, PARos[place] [address] [place] [phone] PCP - General 05/02/17 documented as of this encounter
--- OUTSIDE RECORDS SUMMARY | 2023-12-15 14:24 | XMS_ITS | Encounter Summary ---
Author Organization [facility] Address [address] [place] [address] Care Team Providers Care Gear Coding Machine Operator Name Role Phone Katia Stone PA-C Primary Care Provider +1- [phone] Reason for Visit * Reason Onset Date Comments Labs Only 05/11/2020 Encounter Details Date Type Department Care Team (Late st Contact Info) Description 05/11/2020 Telephone [facility] Acute Care Surgery - [facility] [address] [place] [address] Ja Browne MD [address] [place] [phone] Labs Only Social History Tobacco Use [...] also reviewed this with the Radiology front desk supervisor on [facility] 3 that he would need to be taken to the lab on Level 2 following his chest x-ray. They did not take him. I will re-enter the orders for the CBC to have drawn at [facility] which is closest to the patient's home [...] the CBC that needs to be drawn. Med Asst verbalized understanding and no appt needed. Pt [...] on filedocumented in this encounter Care Teams Gear Coding Machine Operator Relationship Specialty Start Date End Date Katia Stone, MINGO [address] [place] [phone] PCP - General 05/02/17 documented as of this encounter
--- OUTSIDE RECORDS SUMMARY | 2023-12-15 14:24 | XMS_ITS | Encounter Summary ---
Author Organization [facility] Address [address] [place] [address] Care Team Providers Care Inside Sales Person Name Role Phone Katia Stone PA-C Primary Care Provider +1- [phone] Reason for Visit * Reason Onset Date Comments Appointment Related 05/04/2020 Encounter Details Date Type Department Care Team (Late st Contact Info) Description 05/04/[address] [facility] Cardiothoracic Surgery - [facility] [address] [place] [address] Ja Browne MD [address] [place] [phone] Appointment Related Social History Tobacco Use [...] - 05/10/2020 0953 EST Medical records from [facility] received, scanned and book marked [...] 05/08/2020, at 10:30 am. Fax out to [facility] and [facility] to request patient's Discharge Summary from recent hospitalization, as well as diagnostic testing, EKG, labs, etc. Await response. documented in this encounter Plan of Treatment Not on file documented as of this encounter Visit Diagnoses Not on filedocumented in this encounter Care Teams Inside Sales Person Relationship Specialty Start Date End Date Katia Stone, MING[place] [address] [place] [phone] PCP - General 05/02/17 documented as of this encounter
--- OUTSIDE RECORDS SUMMARY | 2023-12-15 14:24 | XMS_ITS | Encounter Summary ---
Author Organization [facility] Address [address] [place] [address] Care Team Providers Care Electro Mechanical Designer Name Role Phone Katia Stone PA-C Primary Care Provider +1- [phone] Reason for Visit * Reason Onset Date Comments Other 05/19/2020 Encounter Details Date Type Department Care Team (Late st Contact Info) Description 05/19/2020 Telephone [facility] Cardiothoracic Surgery - [facility] [address] [place] [address] Ja Browne MD [address] [place] [phone] Other Social History Tobacco Use Types [...] [facility] for [facility] and the botany laboratory assistant turned him away as the patient said I'll wait and have it done in [place] when I have the other blood test done. The otherblood test needed is on the day of surgery for a Pre-Op Blood Draw (type and screen). I called the lab and spoke with a Desi and she will place a note in the system so that they don't turn him away again. I asked them to call our office at [phone] if there are any questions when the patient arrives. He must have the CBC prior to surgery. I called Nila the CM at his Proivder's office and reviewed above with her. She will call the patientas she works closely with him. P) CBC at [facility]. Call CT Surgery WHILE PATIENT IS THERE IF ANY QUESTIONS. * Telephone Encounter - [place]ma Dhillon - 05/19/2020 1244 EDT Please call correctional case records supervisor at PCP Office, Nila. Patient went to [facility] to have pre-op blood draw, as he was directed. [facility] saw the order for blood bank draw, and would not draw any bloodwork for the patient. documented in this encounter Plan of Treatment Not on file documented as of this encounter Visit Diagnoses Not on filedocumented in this encounter Care Teams Electro Mechanical Designer Relationship Specialty Start Date End Date Katia Stone, M[place] [address] [place] [phone] PCP - General 05/02/17 documented as of this encounter
--- OUTSIDE RECORDS SUMMARY | 2023-12-15 14:24 | XMS_ITS | Encounter Summary ---
Author Organization [facility] Address [address] [place] [address] Care Team Providers Care Chandelier Maker Name Role Phone Katia Stone PA-C Primary Care Provider +1- [phone] Encounter Details Date Type Department Care Team (Late st Contact Info) Description 01/16/2020 Results Only [facility] [address] [place] [address] Unknown, Provider, Social History Tobacco Use Types [...] 129(L) 136 - 145 mEq/L 01/16/2020 7:26 [facility] Potassium 3.8 3.5 - 5.1 mEq/L 01/16/2020 7:26 [facility] Chloride 95(L) 96 - 107 mEq/L 01/16/2020 7:26 [facility] CO2 Total 27.5 21 - 32 mEq/L 01/16/2020 7:26 [facility] Anion Gap 7.5 mEq/L 01/16/2020 7:26 [facility] BUN 10 7 - 25 mg/dl 01/16/2020 7:26 [facility] Creatinine 0.64(L) 0.70 - 1.30 mg/dl 01/16/2020 7:26 [facility] Estimated GFR >60 >60 01/16/2020 7:29 [facility] Comment: EGFR UNITS: mL/min/1.73 m 2 CKD-EPI Equation used to calculate. Glucose 91 74 - 106 mg/dl 01/16/2020 7:26 [facility] Calcium 8.4(L) 8.5 - 10.1 mg/dl 01/16/2020 7:26 [facility] 01/16/2020 7:07 EST 01/16/2020 7:09 EST Provider Unknown CHEMISTRY & BLOOD GA S ORDERABLES Performing Organization Address City/State/[place] Co de Phone Number [facility] [address] [place] [address] documented in this encounter Visit Diagnoses Not on filedocumented in this encounter Care Teams Chandelier Maker Relationship Specialty Start Date End Date Katia Stone, [place] [address] [place] [phone] PCP - General 05/02/17 documented as of this encounter
--- OUTSIDE RECORDS SUMMARY | 2023-12-15 14:24 | XMS_ITS | Encounter Summary ---
Author Organization [facility] Address [address] [place] [address] Care Team Providers Care Boxing Instructor Name Role Phone Katia Stone PA-C Primary Care Provider +1- [phone] Encounter Details Date Type Department Care Team [...] on filedocumented in this encounter Care Teams Boxing Instructor Relationship Specialty Start Date End Date Katia Stone, M[place] [address] [place] [phone] PCP - General 05/02/17 documented as of this encounter
--- OUTSIDE RECORDS SUMMARY | 2023-12-15 14:24 | XMS_ITS | Encounter Summary ---
Author Organization [facility] Address [address] [place] [address] Care Team Providers Care Menhaden Vessel Pilot Name Role Phone Katia Stone PA-C Primary Care Provider +1- [phone] Reason for Visit * Reason Onset Date Comments Coordination Of Care 04/19/2020 Returning Call 04/20/2020 Encounter Details Date Type Department Care Team (Late st Contact Info) Description 04/19/2020 Telephone [facility] Cardiology - [address] [id number] Tony Rosenberg MD [address] [place] [address] [address] [place] [address] Coordination Of Care; Returning Call [...] Adam Ordoñez - 04/20/2020 1508 EST Patient's employment evaluator/case manager returning call to Belinda. Please call. * Telephone Encounter - Belinda Falk RN - 04/20/2020 1457 EST Call placed to employment evaluator/case manager regarding patient unable to reach by phone. Message left on voice mail to call office back with call back number [phone]. * Telephone Encounter - Conner Mccall - 04/19/2020 1118 EST Reason for Call: Coordination Of Care Summary/Symptoms: [facility] patients Associate Justice reaching out to get more information on [...] on filedocumented in this encounter Care Teams Menhaden Vessel Pilot Relationship Specialty Start Date End Date Katia Stone PA-C [address] [place] [phone] PCP - General 05/02/17 documented as of this encounter
--- OUTSIDE RECORDS SUMMARY | 2023-12-15 14:24 | XMS_ITS | Encounter Summary ---
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, initial encounter Procedures XR CHEST 2 VIEWS José Miguel Roca PA-C [address] [facility], [facility] [address] [place] [address] Referral ID Status Reason Start Date Expiration Date Visits Re quested Visits Authorized [id number] Closed 05/16/2020 1 1 Reason for Visit [...] Rosenberg MD [address] [place] [address] Ja Browne MD [address] [place], [place] [address] [address] [phone] Referral ID Status Reason Start Date Expiration Date Visits Re quested Visits Authorized [id number] Closed 1 1 Encounter Details Date Type Department Care Team (Latest Contact Info) Description 05/16/2020 9:30 EDT Office Visit [facility] Cardiothoracic Surgery - [address] [place] [address] Ja Browne MD [address] [place] [address] Displacement of electrode lead of [...] located near the Main Entrance of the [facility] at the [facility]. Due to COVID, there is no [...] this appointment please contact our office at [phone]. We have included a local lodging list should you or your family require accommodations around the time of your surgery. Discounts may apply for family members of patients being hospitalized, please ask the hotel when booking. If you have cancer, you and your family member are eligible to stay at the [employer] [place]. The Oncology Patient Navigator can be reached at [phone] for assistance with this. You should receive [...] days prior to your surgery. Stop Saw [place] 14 days prior to surgery. ??? Acetaminophen [...] IF THIS CHANGES, CALL OUR OFFICE AT [phone]. Continue to take all of your other [...] helpful. ??? Do not wear any nail cuban, makeup, powder, lotion, deodorant or jewelry of [...] them with an appointment contact them at [phone] as the test MUST BE DONE 72 [...] to the Surgeon's office on Level [facility] office. Note: If for some reason [...] listed below. The Division of Cardiothoracic Surgery [address] [place] [phone] (Toll Free) MD Geovanni Toure MD Marek [...] file Gets together: Not on file Attends jain service: Not on file Active member of [...] give me a call. Thank you. Ja Browen MD Cardiothoracic Surgery [phone] (office) 05/16/2020 10:36 * Cat Sutherland RN - 05/16/2020 0950 EDT Cardiac Surgery Nursing Pre-Operative Teaching ELECTIVES [...] daily. added in this encounter Care Teams Photonics Engineering Technician Relationship Specialty Start Date End Date Katia Stone PA-C [address] [place] [phone] PCP - General 05/02/17 documented as of this encounter
--- OUTSIDE RECORDS SUMMARY | 2023-12-15 14:24 | XMS_ITS | Encounter Summary ---
Author Organization [facility] Address [address] [place] [address] Care Team Providers Care Business Systems Developer Name Role Phone Katia Stone PA-C Primary Care Provider +1- [phone] Reason for Visit * Reason Onset Date Comments Appointment Related 06/19/2020 Encounter Details Date Type Department Care Team (Late st Contact Info) Description 06/19/2020 Telephone [facility] Cardiothoracic Surgery - [facility] [address] [place] [address] Ja Browne MD [address] [place] [phone] Appointment Related Social History Tobacco Use [...] - 06/19/2020 0858 EDT TC to Nila, Surveillance Analyst, at patient's PCP Office. She is aware that patient has a PAT appointment today between 4:00 and 4:45 pm with an Anesthesia Nurse. Patient is scheduled for surgery on 06/26 at 12:10 pm and should arrive in the Registration Department at 10:10 am. Surveillance Analyst states that patient has a COVID test scheduled for 06/22 at [facility]. New telephone number noted for Surveillance Analyst is [phone]. documented in this encounter Plan of Treatment Not on file documented as of this encounter Visit Diagnoses Not on filedocumented in this encounter Care Teams Business Systems Developer Relationship Specialty Start Date End Date Katia Stone PA-C [address] [place] [phone] PCP - General 05/02/17 documented as of this encounter
--- OUTSIDE RECORDS SUMMARY | 2023-12-15 14:24 | XMS_ITS | Encounter Summary ---
Author Organization [facility] Address [address] [place] [address] Care Team Providers Care Operating Room Orderly Name Role Phone Katia Stone PA-C Primary Care Provider +1- [phone] Reason for Visit * Reason Onset Date Comments Confirmation 05/08/2020 Encounter Details Date Type Department Care Team (Late st Contact Info) Description 05/08/2020 Telephone [facility] Cardiothoracic Surgery - [facility] [address] [place] [address] Ja Browne MD [address] [place] [phone] Confirmation Social History Tobacco Use Types [...] 05/08/2020 1128 EST Spoke with Walker higgins [place] and confirmed patient's appointment with Dr. Browne for 05/16/2020 at 9:30 am. documented in this encounter Plan of Treatment Not on file documented as of this encounter Visit Diagnoses Not on filedocumented in this encounter Care Teams Operating Room Orderly Relationship Specialty Start Date End Date Katia Stone, PABijalC [address] [place] [phone] PCP - General 05/02/17 documented as of this encounter
--- OUTSIDE RECORDS SUMMARY | 2023-12-15 14:24 | XMS_ITS | Encounter Summary ---
Author Organization [facility] Address [address] [place] [address] Care Team Providers Care Pot Tender Name Role Phone Katia Stone PA-C Primary Care Provider +1- [phone] Reason for Visit * Reason Onset Date Comments Labs Only 05/17/2020 Lab orders for p re-op blood work Encounter Details Date Type Department Care Team (Late st Contact Info) Description 05/17/2020 Telephone [facility] Cardiothoracic Surgery - [facility] [address] [place] [address] Ja Browne MD [address] [place] [phone] Labs Only (Lab orders for pre-op [...] note of 05/16. Explained again to Nila Sales Review Clerk. * Telephone Encounter - Melania Dumas - 05/17/2020 1044 EDT Nila (feather trimmer from [facility]) calling to find out if patient's lab orders were faxed to [facility]. Per Nila, patient did not have his blood drawn while here at [facility] on 05/16/2020. Plant Tender explained to caller that patients are usually unable to have pre-op blood bank done at any other facility but health underwriter will defer to CT Surgery RN. Nila requesting return call to [phone], extension: 7. documented in this encounter Plan of Treatment Not on file documented as of this encounter Visit Diagnoses Not on filedocumented in this encounter Care Teams Pot Tender Relationship Specialty Start Date End Date Katia Stone, BELLAC [address] [place] [phone] PCP - General 05/02/17 documented as of this encounter
--- OUTSIDE RECORDS SUMMARY | 2023-12-15 14:24 | XMS_ITS | Encounter Summary ---
Author Organization [facility] Address [address] [place] [address] Care Team Providers Care Horse Stud Worker Name Role Phone Katia Stone PA-C Primary Care Provider +1- [phone] Encounter Details Date Type Department Care Team (Late st Contact Info) Description 01/13/2020 Results Only [facility] [address] [place] [address] Unknown, Provider, Social History Tobacco Use Types [...] 136 - 145 mEq/L 01/13/2020 22:16 EST [facility] 01/13/2020 21:5 0 EST 01/13/2020 21:55 EST Narrative [facility] - 01/13/2020 22:26 EST Sample collected by ED but method of collection (IV Start or venipuncture) not indicated on sample. Provider Unknown CHEMISTRY & BLOOD GA S ORDERABLES [facility] [address] [place] [address] * TROPONIN I (01/13/2020 7:15 EST) Troponin I (ng/mL) <0.050 0 - 0.056 ng/ml 01/13/2020 7:52 EST [facility] Comment: Interpretation: The cutoff for [...] 01/13/2020 7:15 EST 01/13/2020 7:18 EST Narrative [facility] - 01/13/2020 7:54 EST Sample collected [...] Unknown CHEMISTRY & BLOOD GA S ORDERABLES [facility] [address] [place] [address] * (ABNORMAL) SODIUM (01/13/2020 7:15 EST) [facility] Sodium 120(L) 136 - 145 mEq/L 01/13/2020 7:52 [facility] 01/13/2020 7:15 EST 01/13/2020 7:[address] [facility] - 01/13/2020 7:54 EST Sample collected [...] BLOOD GA S ORDERABLES Performing Organization Address [facility] de Phone Number [facility] [address] [place] [phone] * OSMOLALITY,S PMC TEMP (01/13/2020 5:42 EST) [facility] OSMOLALITY,S 280 275 - 295 mOsm/kg 01/14/2020 18:37 [facility] Comment: Test Performed by: [place] [address] Steel Handler: Pierre Andersen M.D. Ph.D.; CLIA# [id number] 01/13/2020 5:42 EST 01/13/2020 5:[address] [facility] - 01/14/2020 18:37 EST Sample collected by ED but method of collection (IV Start or venipuncture) not indicated on sample. Provider Unknown CHEMISTRY & BLOOD GA S ORDERABLES Performing Organization Address [facility] Co de Phone Number [facility] [address] [place] [address] * FOLATE (01/13/2020 5:42 EST) [facility] Folate 18.7 >8.6 ng/mL 01/13/2020 7:43 [facility] 01/13/2020 5:42 EST 01/13/2020 5:54 EST Provider Unknown CHEMISTRY & BLOOD GA S ORDERABLES Performing Organization Address [facility] Phone Number [facility] [address] [place] [phone] * VITAMIN B12 (01/13/2020 5:42 EST) Vitamin B12 246 193 - 986 pg/mL 01/13/2020 7:43 [facility] Comment: The results of this assay can be falsely elevated due to the consumption of Biotin. 01/13/2020 5:42 EST 01/13/2020 5:54 EST Provider Unknown CHEMISTRY & BLOOD GA S ORDERABLES Performing Organization Address [facility] [place] Number [facility] [address] [place] [address] * (ABNORMAL) IRON,TIBC,FERRITIN GROUP - PMC (01/13/2020 5:42 EST) Iron 178(H) 65 - 175 mcg/dL 01/13/2020 7:43 [facility] Iron Binding Capacity 193(L) 250 - 450 mcg/dL 01/13/2020 7:43 [facility] PERCENT IRON SATURATION - PMC 92(H) 14 - 50 % 01/13/2020 7:43 [facility] Ferritin >1,000(H) 26 - 388 ng/mL 01/13/2020 7:43 [facility] 01/13/2020 5:42 EST 01/13/2020 5:54 EST Provider Unknown CHEMISTRY & BLOOD GA S ORDERABLES Performing Organization Address [facility] Co de Phone Number [facility] [address] [place] [phone] * PROTIME (01/13/2020 5:42 EST) Pro Time 11.1 9.0 - 12.3 SEC 01/13/2020 6:47 [facility] PROTHROMBIN TIME WITH INR - PMC 1.1 0.8 - 1.2 RATIO 01/13/2020 6:47 [facility] Comment: Interpretive Information: Moderate [...] reasons. 01/13/2020 5:42 EST 01/13/2020 5:55 EST [facility] - 01/13/2020 6:48 EST Sample collected by ED but method of collection (IV Start or venipuncture) not indicated on sample. Provider Unknown HEMATOLOGY & PF4 ORD ERABLES Performing Organization Address [facility] Phone Number [facility] [address] [place] [phone] * THYROID CASCADE (01/13/2020 5:42 EST) TSH 1.958 0.360 - 3.740 mIU/L 01/13/2020 6:35 [facility] Comment: Note: This is a Third Generation Assay .......................................... The results of this assay can be falsely decreased due to the consumption of Biotin. 01/13/2020 5:42 EST 01/13/2020 5:51 EST [facility] - 01/13/2020 6:35 EST Sample collected by ED but method of collection (IV Start or venipuncture) not indicated on sample. Provider Unknown CHEMISTRY & BLOOD GA S ORDERABLES Performing Organization Address [facility] Co sc Phone Number [facility] [address] [place] [phone] * (ABNORMAL) MAGNESIUM (01/13/2020 5:42 EST) Magnesium 1.4(L) 1.8 - 2.4 mg/dl 01/13/2020 6:35 [facility] 01/13/2020 5:42 EST 01/13/2020 5:[address] [facility] - 01/13/2020 6:35 EST Sample collected by ED but method of collection (IV Start or venipuncture) not indicated on sample. Provider Unknown MD CHEMISTRY & BLOOD GA S ORDERABLES [facility] [address] [place] [address] * (ABNORMAL) HEPATIC & CMP COMBO,FASTING - PMC (01/13/2020 5:42 EST) Sodium 121(L) 136 - 145 mEq/L 01/13/2020 6:35 [facility] Potassium 4.1 3.5 - 5.1 mEq/L 01/13/2020 6:35 [facility] Chloride 87(L) 96 - 107 mEq/L 01/13/2020 6:35 [facility] CO2 Total 25.5 21 - 32 mEq/L 01/13/2020 6:35 [facility] Anion Gap 8.5 mEq/L 01/13/2020 6:35 [facility] BUN 4(L) 7 - 25 mg/dl 01/13/2020 6:35 [facility] Creatinine 0.60(L) 0.70 - 1.30 mg/dl 01/13/2020 6:35 [facility] Estimated GFR >60 >60 01/13/2020 6:35 [facility] Comment: EGFR UNITS: mL/min/1.73 m 2 CKD-EPI Equation used to calculate. Glucose 70 70 - 180 mg/dl 01/13/2020 6:35 [facility] Calcium 7.9(L) 8.5 - 10.1 mg/dl 01/13/2020 6:35 [facility] CALCIUM,CORRECTE D - PMC 8.9 8.5 - 10.5 mg/dl 01/13/2020 6:35 [facility] BILIRUBIN - PMC 0.70 0.00 - 1.00 mg/dl 01/13/2020 6:35 [facility] AST 56(H) 15 - 37 U/L 01/13/2020 6:35 [facility] ALT 38 16 - 63 U/L 01/13/2020 6:35 [facility] Alkaline Phosphatase 87 46 - 116 U/L 01/13/2020 6:35 [facility] Total Protein 6.8 6.4 - 8.2 g/dl 01/13/2020 6:35 [facility] Albumin 2.7(L) 3.4 - 5.0 g/dl 01/13/2020 6:35 [facility] GLOBULIN - PMC 4.1 g/dl 01/13/2020 6:35 [facility] ALBUMIN/GLOBULIN RATIO - PMC 0.6 01/13/2020 6:35 [facility] 01/13/2020 5:42 EST 01/13/2020 5:[address] [facility] - 01/13/2020 6:35 EST Sample collected by ED but method of collection (IV Start or venipuncture) not indicated on sample. Provider Unknown CHEMISTRY & BLOOD GA S ORDERABLES Performing Organization Address City/State/[facility] Co de Phone Number [facility] [address] [place] [address] * (ABNORMAL) COMPLETE BLOOD COUNT AND DIFFERENTIAL (01/13/2020 5:42 EST) WBC 5.2 4.0 - 10.5 10 3/uL 01/13/2020 6:17 [facility] RBC 3.24(L) 4.70 - 6.00 10 6/uL 01/13/2020 6:17 [facility] Hemoglobin 11.3(L) 13.5 - 18.0 g/dL 01/13/2020 6:17 [facility] HCT 30.8(L) 42.0 - 52.0 % 01/13/2020 6:17 [facility] MCV 95.1 78 - 100 fL 01/13/2020 6:17 [facility] MCH 34.9(H) 27 - 31 pg 01/13/2020 6:17 [facility] MCHC 36.7(H) 32 - 36 g/dL 01/13/2020 6:17 [facility] RDW-CV - PMC 12.5 11.0 - 14.8 % 01/13/2020 6:17 [facility] PLATELET COUNT - PMC 161 150 - 450 10 3/uL 01/13/2020 6:17 [facility] NEUTROPHILS % (AUTO) - PMC 52.1 42.0 - 75.0 % 01/13/2020 6:17 [facility] LYMPHOCYTES % (AUTO) - PMC 30.5 16.0 - 52.0 % 01/13/2020 6:17 [facility] MONOCYTES % (AUTO) - PMC 13.8(H) 1.0 - 11.0 % 01/13/2020 6:17 [facility] EOSINOPHILS % (AUTO) - PMC 1.7 0.0 - 7.0 % 01/13/2020 6:17 [facility] BASOPHILS % (AUTO) - PMC 1.3 0.0 - 4.0 % 01/13/2020 6:17 [facility] NUCLEATED RBC % (AUTO) - PMC 0.0 <1 % 01/13/2020 6:17 [facility] NEUTROPHILS # (AUTO) - PMC 2.7 1.5 - 6.6 10 3/uL 01/13/2020 6:17 [facility] LYMPHOCYTES # (AUTO) - PMC 1.6 1.0 - 3.5 10 3/uL 01/13/2020 6:17 [facility] MONOCYTES # (AUTO) - PMC 0.7 <1.0 10 3/uL 01/13/2020 6:17 [facility] EOSINOPHILS # (AUTO) - PMC 0.1 <0.7 10 3/uL 01/13/2020 6:17 [facility] BASOPHILS # (AUTO) - PMC 0.1 <0.1 10 3/uL 01/13/2020 6:17 [facility] NUCLEATED RBC # (AUTO) - PMC 0.00 <1 10 3/uL 01/13/2020 6:17 [facility] 01/13/2020 5:42 EST 01/13/2020 5:55 EST Narrative [facility] - 01/13/2020 6:48 EST Sample collected by ED but method of collection (IV Start or venipuncture) not indicated on sample. Provider Unknown MD PACKAGES & DNA PROBE ORDERABLES [facility] [address] [place] [address] * OSMOLALITY, UR PMC TEMP (01/13/2020 1:57 EST) Osmolality, Ur 239 150 - 1150 mOsm/kg 01/14/2020 18:37 EST [facility] Comment: Test Performed by: [place] [address] Steel Handler: Pierre Andersen M.D. Ph.D.; CLIA# [id number] 01/13/2020 1:57 EST 01/13/2020 2:14 EST Provider Unknown CHEMISTRY & BLOOD GA S ORDERABLES Performing Organization Address City/[facility]/ZIP Co de Phone Number [facility] [address] [place] [address] * UA MICROSCOPIC - PMC (01/13/2020 1:57 EST) URINE RBC - PMC None Seen 0 - 2 hpf 0 3:06 [facility] URINE WBC - PMC None seen 0 - 3 hpf 0 3:06 [facility] URINE BACTERIA - PMC None Seen None Seen hpf 01/13/2020 3:06 [facility] URINE MUCUS - PMC None Seen lpf 01/13/2020 3:06 [facility] URINE SQUAMOUS EPITHELIAL CELL - PMC None Seen None-Few hpf 01/13/2020 3:06 [facility] 01/13/2020 1:57 EST 01/13/2020 2:15 EST Narrative [facility] - 01/13/2020 3:07 EST Clean Catch Provider Unknown CHEMISTRY & BLOOD GA S ORDERABLES [facility] [address] [place] [address] * TROPONIN I (01/13/2020 1:57 EST) [facility] Troponin I (ng/mL) <0.050 0 - 0.056 ng/ml 01/13/2020 2:42 EST [facility] Comment: Interpretation: The cutoff for [...] S ORDERABLES Performing Organization Address [facility] Co de Phone Number [facility] [address] [place] [address] * (ABNORMAL) SODIUM (01/13/2020 1:57 EST) [facility] Sodium 118(CRIT LOW) 136 - 145 mEq/L 01/13/2020 2:59 EST [facility] Comment: Results called and read back to me by: Location: ER Full name: LEV JOSHUA Credentials: RN at 0258 on 01/13/20 by TESS. 01/13/2020 1:57 EST 01/13/2020 2:11 EST Provider Unknown CHEMISTRY & BLOOD GA S ORDERABLES [facility] [address] [place] [phone] * (ABNORMAL) BNP - PMC (01/13/2020 1:57 EST) Pathologist [facility] B-TYPE NATRIURETIC PEPTIDE - PMC 549(H) <100 pg/mL 01/13/2020 2:36 EST [facility] 01/13/2020 1:57 EST 01/13/2020 2:12 EST Provider Unknown CHEMISTRY & BLOOD GA S ORDERABLES [facility] [address] [place] [address] * (ABNORMAL) UA (CULTURE IF POSITIVE) - PMC (01/13/2020 1:57 EST) URINE COLOR - PMC Yellow Straw/Yelow 01/13/2020 2:26 [facility] URINE APPEARANCE - PMC Clear Clr/Hazy 01/13/2020 2:26 [facility] URINE PH - PMC 6.0 5.0 - 9.0 01/13/2020 2:26 [facility] UR SPECIFIC GRAVITY (REFRACTOM) - PMC 1.006 1.001 - 1.035 01/13/2020 2:40 [facility] URINE PROTEIN - PMC Negative Negative mg/dL 01/13/2020 2:26 [facility] URINE GLUCOSE (UA) - PMC Negative Negative mg/dL 01/13/2020 2:26 [facility] URINE KETONES - PMC Trace(A) Negative mg/dL 01/13/2020 2:26 [facility] URINE BILIRUBIN - PMC Negative Negative 01/13/2020 2:26 [facility] URINE BLOOD - PMC Trace(A) Negative 01/13/2020 2:26 [facility] URINE UROBILINOGEN - PMC 0.2 0.2 - 1.0 E.U./dL 01/13/2020 2:26 [facility] URINE NITRATE - PMC Negative Negative 01/13/2020 2:26 [facility] URINE LEUKOCYTE ESTERASE - PMC Negative Negative 01/13/2020 2:26 [facility] URINE CULTURE COMMENTS - PMC CRITERIA NOT MET 01/13/2020 3:06 [facility] Comment:Specimen does not me et criteria for culture. 01/13/2020 1:57 EST 01/13/2020 2:15 EST [facility] - 01/13/2020 3:07 EST Clean Catch Provider Unknown MICROBIOLOGY - GENER AL ORDERABLES [facility] [address] [place] [phone] * SODIUM, URINE RANDOM (01/13/2020 1:57 EST) Sodium, Urine 52 20 - 110 mEq/L 01/13/2020 2:35 EST [facility] 01/13/2020 1:57 EST 01/13/2020 2:14 EST Provider Unknown MD URINALYSIS ORDERABLE S Performing Organization Address City/State/[facility] Co de Phone Number [facility] [address] [place] [address] documented in this encounter Visit Diagnoses Not on filedocumented in this encounter Care Teams Horse Stud Worker Relationship Specialty Start Date End Date Katia Stone, PA-C [address] [phone] PCP - General 05/02/17 documented as of this encounter
--- OUTSIDE RECORDS SUMMARY | 2023-12-15 14:24 | XMS_ITS | Encounter Summary ---
Author Organization [facility] Address [address] [place] [address] Care Team Providers Care Baby Formula Worker Name Role Phone Katia Stone PA-C Primary Care Provider +1- [phone] Reason for Visit * Reason Onset Date Comments Other 06/07/[address] Surgery RN Other 06/08/2020 mailed pre-op in structions to patient Encounter Details Date Type Department Care Team (Late st Contact Info) Description 06/07/2020 Telephone [facility] Cardiothoracic Surgery - Main [employer] [address] [place] [address] Ja Browne MD [address] [place] [phone] Other (questions for CT Surgery RN); [...] EDT Pre-op instructions mailed to patient at: [address] [place] [phone] Address updated in [facility]. * Telephone Encounter - Cat Sutherland RN - 06/07/2020 1526 EDT Called and left message for Maru Villalobos RN at [place] [facility] Handkerchief Maker to get correct address (mailing address) for patient and then have changed in Registration as he doesn't live in [place] anymore. She was going to call us [...] the Division of Cardiothoracic Surgery at the [facility]. We look forward to making your [...] located near the Main Entrance of the Nursing Informatics Clinical Analyst Center at the [facility]. Prior to surgery, you will be scheduled for an anesthesia pre-screen telephone call with the Pre-Operative Department ??? Your telephone call has been scheduled for: To Be Announced between To Be Announced and To Be Announced ??? If you do not receive an appointment for the pre-screen call within two days of this appointment, please contact our office at [phone]. We have included a local lodging list [...] days prior to your surgery. Stop [place] 14 days prior to surgery. ??? Acetaminophen [...] CHANGED, CALL OUR OFFICE RIGHT AWAY AT [phone]) ??? Continue to take all of your [...] clothing. ??? Do not wear any nail yakut, makeup, powder, lotion, deodorant or jewelry of [...] timely results. The Patient Access Center at [facility] will contact you with an appointment [...] AN APPOINTMENT CONTACT THE PATIENT ACCESS CENTERAT [phone]. ??? While waiting for your surgery, you [...] on Level 3 (street level of the [facility]) for this. Following check-in, you will have a chest x-ray done. Following thechest x-ray proceed to the Surgeon's office on Level 5 [facility] Surgery Outpatient office. Note: If [...] listed below. The Division of Cardiothoracic Surgery [address] [place] [address] (Toll Free) MD Geovanni Toure MD Marek Polomsky, MD Chris Rokkas, MD /josh & ep 03/2020 * Telephone Encounter - Cat Sutherland RN - 06/07/[address] Surgery Upate Maru Villalobos, ratchet setter at [facility] [phone] EXT [phone] states patient's son and and is not on Adv Directive now. Questions call Maru Villalobos. Pre-Op Instructions mailed to patient and faxed to Maru [phone]. She will review with the patient and I will as well. Check in time for surgery on 06/26 has not been confirmed yet per our Electromechanical Assembler. Maru will set up COVID test as he needs a driver engineer and he will also need a ride to [place] for surgery which she will arrange. * Telephone Encounter - Melania Dumas - 06/07/2020 1013 EDT Maru from [place] calling with questions for CT Surgery RN. Requesting return call to [phone], extension [phone]. documented in this encounter Plan of Treatment Not on file documented as of this encounter Visit Diagnoses Diagnosis Encounter for preoperative screening laboratory testing for COVID-19 virus- Primary documented in this encounter Care Teams Baby Formula Worker Relationship Specialty Start Date End Date Katia Stone, PABijalC [address] [place] [phone] PCP - General 05/02/17 documented as of this encounter
--- OUTSIDE RECORDS SUMMARY | 2023-12-15 14:24 | XMS_ITS | Encounter Summary ---
Author Organization [facility] Address [address] [place] [address] Care Team Providers Care Transportation Superintendent Name Role Phone Katia Stone PA-C Primary Care Provider +1- [phone] Reason for Visit * Reason Onset Date Comments Pacemaker Problem 05/01/2020 Follow-up 05/03/2020 Encounter Details Date Type Department Care Team (Late st Contact Info) Description 05/01/2020 Telephone [facility] Cardiology - [address] [place], [place] [id number] Tony Rosenberg MD [address] [facility] [address] [place] [address] Pacemaker Problem; Follow-up Social History [...] EST Caller states that pt and case assistant do not understand what is going on with pt's care. From after-visit notes 04/12, it is clear to chief writer that provider intends for pt to see Dr. Browne at [place]. Caller, case assistant, and pt are unaware of a referral being sent to [place], and seem to think that provider is still following care. Please call pt and case assistant directly to let them know exactly what the plan of care is. * Telephone Encounter - Brenda Bocanegra - 05/01/2020 1409 EST Spoke with Nila. We don't have much device information here as the patient is managed by [facility]. They are wanting follow up from Dr. Rosenberg regarding the next steps for pt's device care. Told them I would see what I can do to help. * Telephone Encounter - Haja Pavon - 05/01/2020 1304 EST Nila @ [facility] called to follow-up on pacemaker issues (problems [...] documented as of this encounter Care Teams Transportation Superintendent Relationship Specialty Start Date End Date Katia Stone, PABijalC [address] [place] [phone] PCP - General 05/02/17 documented as of this encounter
--- OUTSIDE RECORDS SUMMARY | 2023-12-15 14:24 | XMS_ITS | Encounter Summary ---
Author Organization [facility] Address [address] [place] [address] Care Team Providers Care Director Of Market Intelligence Name Role Phone Katia Stone PA-C Primary Care Provider +1- [phone] Reason for Visit * Reason Onset Date Comments Other 05/16/2020 EKG results Encounter Details Date Type Department Care Team (Late st Contact Info) Description 05/16/2020 Telephone [facility] Cardiothoracic Surgery - [address] [address] Cat Sutherland RN Other (EKG results) Social [...] Patient had an EKG in January 2020. [facility] to fax report to [phone]. [facility] I have routed our PA Salvador Roca to see if he wants to repeat on DOSA. documented in this encounter Plan of Treatment Not on file documented as of this encounter Visit Diagnoses Not on filedocumented in this encounter Care Teams Director Of Market Intelligence Relationship Specialty Start Date End Date Katia Stone, PA-C [address] [place] [phone] PCP - General 05/02/17 documented as of this encounter
--- OUTSIDE RECORDS SUMMARY | 2023-12-15 14:24 | XMS_ITS | Encounter Summary ---
Author Organization [facility] Address [address] [place] [address] Care Team Providers Care Senior Javascript Developer Name Role Phone Katia Stone PA-C Primary Care Provider +1- [phone] Encounter Details Date Type Department Care Team (Late st Contact Info) Description 08/08/2020 Results Only [facility] [address] [place] [phone] Tony Christy MD [address] [place] [address] Social History Tobacco Use Types [...] 4.0 - 10.5 10 3/uL 08/08/2020 20:51 [facility] RBC 3.15(L) 4.70 - 6.00 10 6/uL 08/08/2020 20:51 [facility] Hemoglobin 11.3(L) 13.5 - 18.0 g/dL 08/08/2020 20:51 [facility] HCT 31.4(L) 42.0 - 52.0 % 08/08/2020 20:51 [facility] MCV 99.7 78 - 100 fL 08/08/2020 20:51 [facility] MCH 35.9(H) 27 - 31 pg 08/08/2020 20:51 [facility] MCHC 36.0 32 - 37 g/dL 08/08/2020 20:51 [facility] RDW-CV - PMC 13.8 <14.7 % 08/08/2020 20:51 [facility] PLATELET COUNT - PMC 199 150 - 450 10 3/uL 08/08/2020 20:51 [facility] MPV 11.2 9.2 - 12.0 fL 08/08/2020 20:51 [facility] NEUTROPHILS % (AUTO) - PMC 81.3 % 08/08/2020 20:51 [facility] LYMPHOCYTES % (AUTO) - PMC 8.6 % 08/08/2020 20:51 [facility] MONOCYTES % (AUTO) - PMC 9.5 % 08/08/2020 20:51 [facility] EOSINOPHILS % (AUTO) - PMC 0.0 % 08/08/2020 20:51 [facility] BASOPHILS % (AUTO) - PMC 0.1 % 08/08/2020 20:51 [facility] Immature Granulocyte % (Auto) 0.5 % 08/08/2020 20:51 [facility] NUCLEATED RBC % (AUTO) - PMC 0.0 % 08/08/2020 20:51 [facility] NEUTROPHILS # (AUTO) - PMC 6.1 1.5 - 6.6 10 3/uL 08/08/2020 20:51 [facility] LYMPHOCYTES # (AUTO) - PMC 0.7(L) 1.0 - 3.5 10 3/uL 08/08/2020 20:51 [facility] MONOCYTES # (AUTO) - PMC 0.7 <1.0 10 3/uL 08/08/2020 20:51 [facility] EOSINOPHILS # (AUTO) - PMC 0.0 <0.7 10 3/uL 08/08/2020 20:51 [facility] Absolute Immature Granulocyte 0.04 <0.06 10 3/uL 08/08/2020 20:51 [facility] DIFFERENTIAL METHOD Auto Differential 08/08/2020 20:48 [facility] 08/08/2020 20:4 2 EDT 08/08/2020 20:46 EDT Tony Christy MD PACKAGES & DNA PRO BE ORDERABLES [facility] [address] [place] [address] * CORONAVIRUS COVID-19 PCR ([facility]) (08/08/2020 17:07 EDT) 08/08/2020 17:0 7 EDT 08/08/2020 17:11 EDT Comment:SWAB Narrative [facility] - 08/08/2020 18:36 EDT ----- ------- ?? RUN DATE: 08/08/20 ? [facility]: [facility] *LIVE* ? PAGE 1 ? RUN TIME: 1837 ?Specimen Inquiry ? ----- ------- ?? PATIENT: DAVID FARFAN ? ACCT: [id number] LOC: ??ED ? U: [id number] ? AGE/SX: 69/M ? ROOM: ?RE08/08/20 ?? REG DR: ??Tony Christy MD ?: ?1950 ?? BED: ? DIS: ? STATUS: REG ER ? TLOC: ? ----- ------- ? SPEC #: [id number] ?ALEX: 08/08/20 ? STATUS: ??COMP ? REQ #: [id number] ?RECD: 08/08/20 ? SUBM DR: Tony Christy [...] terminated or revoked sooner. ?Testing performed on Proxly instrument ? ----- ------- ? END OF REPORT ? Tony Christy MD MICROBIOLOGY - GEN ERAL ORDERABLES Performing Organization Address [facility] Co de Phone Number [facility] [address] [place] [address] * (ABNORMAL) BNP - PMC (08/08/2020 16:47 EDT) [facility] B-TYPE NATRIURETIC PEPTIDE - PMC 398(H) <100 pg/mL 08/08/2020 17:53 EDT [facility] 08/08/2020 16:4 7 EDT 08/08/2020 16:52 EDT Tony Christy MD CHEMISTRY & BLOOD GAS ORDERABLES Performing Organization Address [facility] de Phone Number [facility] [address] [place] [address] * TROPONIN I (08/08/2020 16:47 EDT) [facility] Troponin I (ng/mL) <0.050 0 - 0.056 ng/ml 08/08/2020 17:36 EDT [facility] Comment: Interpretation: The cutoff for [...] & BLOOD GAS ORDERABLES Performing Organization Address [facility] Co de Phone Number [facility] [address] [place] [address] * (ABNORMAL) COMPREHENSIVE METABOLIC PANEL (CMP) (08/08/2020 16:47 EDT) [facility] Sodium 125(L) 136 - 145 mEq/L 08/08/2020 17:29 [facility] Potassium 2.9(L) 3.5 - 5.1 mEq/L 08/08/2020 17:29 [facility] Chloride 85(L) 96 - 107 mEq/L 08/08/2020 17:29 [facility] CO2 Total 26.2 21 - 32 mEq/L 08/08/2020 17:29 [facility] Anion Gap 13.8 mEq/L 08/08/2020 17:29 [facility] BUN 8 7 - 25 mg/dl 08/08/2020 17:29 [facility] Creatinine 0.67(L) 0.70 - 1.30 mg/dl 08/08/2020 17:29 [facility] Estimated GFR >60 >60 08/08/2020 17:29 [facility] Comment: EGFR UNITS: mL/min/1.73 m 2 CKD-EPI Equation used to calculate. Glucose 101 74 - 106 mg/dl 08/08/2020 17:29 [facility] Calcium 8.5 8.5 - 10.1 mg/dl 08/08/2020 17:29 [facility] CALCIUM,CORRECTE D - PMC 9.3 8.5 - 10.5 mg/dl 08/08/2020 17:29 [facility] BILIRUBIN - PMC 1.60(H) 0.00 - 1.00 mg/dl 08/08/2020 17:29 [facility] AST 90(H) 15 - 37 U/L 08/08/2020 17:29 [facility] ALT 62 16 - 63 U/L 08/08/2020 17:29 [facility] Alkaline Phosphatase 133(H) 46 - 116 U/L 08/08/2020 17:29 [facility] Total Protein 7.6 6.4 - 8.2 g/dl 08/08/2020 17:29 [facility] Albumin 3.0(L) 3.4 - 5.0 g/dl 08/08/2020 17:29 [facility] GLOBULIN - PMC 4.6 g/dl 08/08/2020 17:29 [facility] ALBUMIN/GLOBULIN RATIO - PMC 0.6 08/08/2020 17:29 [facility] 08/08/2020 16:4 7 EDT 08/08/2020 16:52 EDT Tony Christy MD CHEMISTRY & BLOOD GAS ORDERABLES [facility] [address] [place] [address] * (ABNORMAL) COMPLETE BLOOD COUNT AND DIFFERENTIAL (08/08/2020 16:47 EDT) WBC 7.3 4.0 - 10.5 10 3/uL 08/08/2020 17:14 [facility] RBC 3.32(L) 4.70 - 6.00 10 6/uL 08/08/2020 17:14 [facility] Hemoglobin 11.8(L) 13.5 - 18.0 g/dL 08/08/2020 17:14 [facility] HCT 32.9(L) 42.0 - 52.0 % 08/08/2020 17:14 [facility] MCV 99.1 78 - 100 fL 08/08/2020 17:14 [facility] MCH 35.5(H) 27 - 31 pg 08/08/2020 17:14 [facility] MCHC 35.9 32 - 37 g/dL 08/08/2020 17:14 [facility] RDW-CV - PMC 13.7 <14.7 % 08/08/2020 17:14 [facility] PLATELET COUNT - PMC 209 150 - 450 10 3/uL 08/08/2020 17:14 [facility] MPV 11.4 9.2 - 12.0 fL 08/08/2020 17:14 [facility] NEUTROPHILS % (AUTO) - PMC 81.9 % 08/08/2020 17:14 [facility] LYMPHOCYTES % (AUTO) - PMC 9.1 % 08/08/2020 17:14 [facility] MONOCYTES % (AUTO) - PMC 8.3 % 08/08/2020 17:14 [facility] EOSINOPHILS % (AUTO) - PMC 0.0 % 08/08/2020 17:14 [facility] BASOPHILS % (AUTO) - PMC 0.1 % 08/08/2020 17:14 [facility] Immature Granulocyte % (Auto) 0.6 % 08/08/2020 17:14 [facility] NUCLEATED RBC % (AUTO) - PMC 0.0 % 08/08/2020 17:14 [facility] NEUTROPHILS # (AUTO) - PMC 5.9 1.5 - 6.6 10 3/uL 08/08/2020 17:14 [facility] LYMPHOCYTES # (AUTO) - PMC 0.7(L) 1.0 - 3.5 10 3/uL 08/08/2020 17:14 [facility] MONOCYTES # (AUTO) - PMC 0.6 <1.0 10 3/uL 08/08/2020 17:14 [facility] EOSINOPHILS # (AUTO) - PMC 0.0 <0.7 10 3/uL 08/08/2020 17:14 [facility] Absolute Immature Granulocyte 0.04 <0.06 10 3/uL 08/08/2020 17:14 [facility] DIFFERENTIAL METHOD Auto Differential 08/08/2020 16:54 [facility] 08/08/2020 16:4 7 EDT 08/08/2020 16:52 EDT Tony Christy MD PACKAGES & DNA PRO BE ORDERABLES [facility] [address] [place] [address] documented in this encounter Visit Diagnoses Not on filedocumented in this encounter Care Teams Senior Javascript Developer Relationship Specialty Start Date End Date Katia Stone, MINGO [address] [place] [address] PCP - General 05/02/17 documented as of this encounter
--- OUTSIDE RECORDS SUMMARY | 2023-12-15 14:24 | XMS_ITS | Encounter Summary ---
Author Organization [facility] Address [address] [place] [address] Care Team Providers Care Bottomer Operator Name Role Phone Katia Stone PA-C Primary Care Provider +1- [phone] Encounter Details Date Type Department Care Team (Late st Contact Info) Description 08/08/2020 Results Only Imaging [facility] Radiology Results [address] [place] [phone] Tony Christy MD [address] [place] [address] Social History Tobacco Use Types [...] 15:3 6 EDT Narrative 08/08/2020 15:36 EDT ?[facility] ?[address] ?[place] [address] ?Diagnostic Imaging Report ? Signed ? Patient Name:DAVID FARFAN ? Date of :1950 ?MR Number:[id number] ? Age:69 ?Sex:M ? Category: CR ?Date [...] the [facility] at [phone] ? Dictated by: Temo Son MD ?D/ 15 ?? 36 ?? Transcribed by: SSOMROV ?D/T: ? E-Signed by: Temo Son MD ?D/ 19 ?? 38 ?? Procedure Note Temo Son MD - 08/08/2020 [facility] [address] [address] Diagnostic Imaging Report Signed Patient Name:DAVID FARFAN FAccount Number:[id number] Date of :1950 MRNumber:[id number] Age:69 Sex:M Category: CR Date ofExam:08/08/20 Procedure: CR: Chest; Frontal/LAT viewsAccession: [id number] Ordering Physician: Tony Christy MD Patient [...] questions regarding this report, please contact the [facility] at [phone] Dictated by: Temo Son MDD/ 15 36 Transcribed by: SSOMROVD/T: E-Signed by: Temo Son MDD/ 19 38 Tony Christy MD IMG DIAGNOSTIC DAWIT GING ORDERABLES * CT ABDOMEN PELVIS W CONTRAST (08/08/2020 15:36 EDT) Anatomical Region Laterality Modality Body, Abdomen, Pelvis, Abdomen and Pelvis Computed Tomography 08/08/2020 15:3 6 EDT Narrative 08/08/2020 15:36 EDT ?[facility]: [facility] ?[address] ?[place], [place] [address] ?Diagnostic Imaging Report ? Signed ? Patient Name:ADOLPH,DAVID [place] ? Date of :1950 ?MR Number:[id number] ? Age:69 ?Sex:M ? Category: CT ?Date [...] please contact the [facility] at [phone] ? Dictated by: Temo Son MD ?D/ 15 ?? 36 ?? Transcribed by: DEBRA ?D/T: ? E-Signed by: Temo Son MD ?D/ 19 ?? 36 ?? Procedure Note Temo Son MD - 08/08/2020 [facility]: [address] [address] Diagnostic Imaging Report Signed Patient Name:DAVID FARFAN FAccount Number:[id number] Date of :1950 MRNumber:[id number] Age:69 Sex:M Category: CT Date ofExam:08/08/20 Procedure: CT: Abd Pelvis; wit cntrstAccession: [id number] Ordering Physician: Tony Christy MD Patient [...] questions regarding this report, please contact the [facility] at [phone] Dictated by: Temo Son MDD/ 15 36 Transcribed by: PRADEEPVD/T: E-Signed by: Temo Son MDD/ 19 36 Tony Christy MD IMG CT ORDERABLES documented in this encounter Visit Diagnoses Not on filedocumented in this encounter Additional Health Concerns Infection Onset Date Last Indicated Resolved Time RSV 01/31/2022 01/31/2022 02/10/2022 22:1 5 EST documented as of this encounter Care Teams Bottomer Operator Relationship Specialty Start Date End Date Katia Stone, PA-C [address] [place] [phone] PCP - General 05/02/17 documented as of this encounter
--- OUTSIDE RECORDS SUMMARY | 2023-12-15 14:24 | XMS_ITS | Encounter Summary ---
Author Organization [facility] Address [address] [place] [address] Care Team Providers Care Emergency Management Director Name Role Phone Katia Stone PA-C Primary Care Provider +1- [phone] Encounter Details Date Type Department Care Team (Latest Contact Info) Description 06/19/2020 16:00 EDT - 06/19/2020 23:59 EDT Hospital Encounter [facility] Pre-Surgical Testing [address] [place] [address] Discharge Disposition: Home or Self Care Social [...] hospital - to be organized by his complex case manager Nila Villalobos. Pt refused to listen to instructions for surgery states I am waiting for the paper work that tells me what meds to take. This RN spoke with Cat Sutherland cupola liner to discuss above. Cat to call pt tomorrow to confirm informations on medications as well as instructions otherwise. She will also contact supervisor case loading to confirm ride. documented in this encounter Plan of Treatment Not on file documented as of this encounter Visit Diagnoses Not on filedocumented in this encounter Care Teams Emergency Management Director Relationship Specialty Start Date End Date Katia Stone, PABijalC [address] [place] [phone] PCP - General 05/02/17 documented as of this encounter
--- OUTSIDE RECORDS SUMMARY | 2023-12-15 14:24 | XMS_ITS | Encounter Summary ---
Author Organization [facility] Address [address] [place] [address] Care Team Providers Care Hopper Attendant Name Role Phone Katia Stone PA-C Primary Care Provider +1- [phone] Reason for Referral * Radiology Services (Routine) - Closed Specialty Diagnoses / Procedures Referred By Jael ho Referred To Contact Diagnoses 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, initial encounter Procedures XR CHEST 2 VIEWS José Miguel Roca PA-C [address] [place] [phone] Referral ID Status Reason Start Date Expiration Date Visits Re quested Visits Authorized [id number] Closed 05/16/2020 1 1 Reason for Visit * Radiology Services (Routine) - Closed Specialty Diagnoses / Procedures Referred By Jael ho Referred To Contact Diagnoses 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, initial encounter Procedures XR CHEST 2 VIEWS José Miguel Roca PA-C [address] [phone] Referral ID Status Reason Start Date Expiration Date Visits Re quested Visits Authorized [id number] Closed 05/16/2020 1 1 Encounter Details Date Type Department Care Team (Latest Contact Info) Description 05/16/2020 10:57 EDT - 05/16/2020 23:59 EDT Hospital [facility] Radiology Xray Outpatient - [address] [address] 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, [...] encounter documented in this encounter Care Teams Hopper Attendant Relationship Specialty Start Date End Date Katia Stone PA-C [address] [place] [phone] PCP - General 05/02/17 documented as of this encounter
--- OUTSIDE RECORDS SUMMARY | 2023-12-15 14:24 | XMS_ITS | Encounter Summary ---
Author Organization [facility] Address [address] [place] [address] Care Team Providers Care Casey Saw Operator Name Role Phone Katia Stone PA-C Primary Care Provider +1- [phone] Reason for Visit * Reason Onset Date Comments Appointment Related 06/22/2020 Encounter Details Date Type Department Care Team (Late st Contact Info) Description 06/22/2020 Telephone [facility] Cardiothoracic Surgery - [facility] [address] [place] [address] Ja Browne MD [address] [place] [phone] Appointment Related Social History Tobacco Use [...] on filedocumented in this encounter Care Teams Casey Saw Operator Relationship Specialty Start Date End Date Katia Stone, BELLAC [address] [place] [phone] PCP - General 05/02/17 documented as of this encounter
--- OUTSIDE RECORDS SUMMARY | 2023-12-15 14:24 | XMS_ITS | Encounter Summary ---
Author Organization [facility] Address [address] [place] [address] Care Team Providers Care Pipe Wrapping Machine Operator Name Role Phone Katia Stone PA-C Primary Care Provider +1- [phone] Reason for Visit * Reason Comments Pacemaker Problem Encounter Details Date Type Department Care Team (Late st Contact Info) Description 04/12/2020 12:20 EST Office Visit [facility] Cardiology [address] [address] Tony Rosenberg MD [address] [place] [address] [place] [phone] Heart block AV third degree (HCC-CMS) [...] Rosenberg MD - 04/12/2020 1216 EST [facility] CARDIOLOGY - RADCLIFF PROGRESS / FOLLOWUP NOTE - 04/12/2020 PROBLEM LIST 1. Third-degree heart block, status post dual chamber pacemaker insertion, complicated by pericardial effusion and need for 12-lead repositioning. 2. Hyponatremia. 3. RA lead failure. SUBJECTIVE: Mr Mera returns to the clinic at [facility] to discuss the issues surrounding his [...] has had 2 recent hospitalizations, one at [facility] and the other at [facility] [...] Tony Rosenberg MD / CD Dictation ID: [id number] cc: documented in this encounter Plan of Treatment Not on file documented as of this encounter Visit Diagnoses Diagnosis 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, complete documented in this encounter Care Teams Pipe Wrapping Machine Operator Relationship Specialty Start Date End Date Katia Stone, MINGO [address] [place] [phone] PCP - General 05/02/17 documented as of this encounter
--- OUTSIDE RECORDS SUMMARY | 2023-12-15 14:24 | XMS_ITS | Encounter Summary ---
Author Organization [facility] Address [address] [place] [address] Care Team Providers Care Core Man Name Role Phone Katia Stone PA-C Primary Care Provider +1- [phone] Encounter Details Date Type Department Care Team (Late st Contact Info) Description 01/15/2020 Results Only [facility] [phone] Jayesh Olmos MD [address] [place] [phone] Social History Tobacco Use Types Packs/Day [...] (ABNORMAL) MAGNESIUM (01/15/2020 6:16 EST) Pathologist [facility] Magnesium 1.6(L) 1.8 - 2.4 mg/dl 01/15/2020 7:55 [facility] 01/15/2020 6:16 EST 01/15/2020 7:24 EST Jayesh Olmos MD CHEMISTRY & BLO OD GAS ORDERABLES [facility] [address] [place] [address] * (ABNORMAL) HEPATIC & CMP COMBO,FASTING - PMC (01/15/2020 6:16 EST) Sodium 125(L) 136 - 145 mEq/L 01/15/2020 7:55 [facility] Potassium 3.8 3.5 - 5.1 mEq/L 01/15/2020 7:55 [facility] Chloride 93(L) 96 - 107 mEq/L 01/15/2020 7:55 [facility] CO2 Total 30.1 21 - 32 mEq/L 01/15/2020 7:55 [facility] Anion Gap 3.9 mEq/L 01/15/2020 7:55 [facility] BUN 10 7 - 25 mg/dl 01/15/2020 7:55 [facility] Creatinine 0.67(L) 0.70 - 1.30 mg/dl 01/15/2020 7:55 [facility] Estimated GFR >60 >60 01/15/2020 7:56 [facility] Comment: EGFR UNITS: mL/min/1.73 m 2 CKD-EPI Equation used to calculate. Glucose 92 74 - 106 mg/dl 01/15/2020 7:55 [facility] Calcium 8.2(L) 8.5 - 10.1 mg/dl 01/15/2020 7:55 [facility] CALCIUM,CORRECTE D - PMC 9.2 8.5 - 10.5 mg/dl 01/15/2020 7:55 [facility] BILIRUBIN - PMC 0.60 0.00 - 1.00 mg/dl 01/15/2020 7:55 [facility] AST 46(H) 15 - 37 U/L 01/15/2020 7:55 [facility] ALT 33 16 - 63 U/L 01/15/2020 7:55 [facility] Alkaline Phosphatase 82 46 - 116 U/L 01/15/2020 7:55 [facility] Total Protein 7.0 6.4 - 8.2 g/dl 01/15/2020 7:55 [facility] Albumin 2.8(L) 3.4 - 5.0 g/dl 01/15/2020 7:55 [facility] GLOBULIN - PMC 4.2 g/dl 01/15/2020 7:55 [facility] ALBUMIN/GLOBULIN RATIO - PMC 0.6 01/15/2020 7:55 [facility] 01/15/2020 6:16 EST 01/15/2020 7:24 EST Jayesh Olmos MD CHEMISTRY & BLO OD GAS ORDERABLES [facility] [address] [place] [address] * (ABNORMAL) COMPLETE BLOOD COUNT (01/15/2020 6:16 EST) WBC 4.4 4.0 - 10.5 10 3/uL 01/15/2020 7:45 [facility] RBC 3.26(L) 4.70 - 6.00 10 6/uL 01/15/2020 7:45 [facility] Hemoglobin 11.3(L) 13.5 - 18.0 g/dL 01/15/2020 7:45 [facility] HCT 31.2(L) 42.0 - 52.0 % 01/15/2020 7:45 [facility] MCV 95.7 78 - 100 fL 01/15/2020 7:45 [facility] MCH 34.7(H) 27 - 31 pg 01/15/2020 7:45 [facility] MCHC 36.2(H) 32 - 36 g/dL 01/15/2020 7:45 [facility] RDW-CV - PMC 12.8 11.0 - 14.8 % 01/15/2020 7:45 [facility] PLATELET COUNT - PMC 163 150 - 450 10 3/uL 01/15/2020 7:45 [facility] 01/15/2020 6:16 EST 01/15/2020 7:24 EST Jayesh Olmos MD HEMATOLOGY & PF 4 ORDERABLES Performing Organization Address City/State/[facility] Co de Phone Number [facility] [address] [place] [address] documented in this encounter Visit Diagnoses Not on filedocumented in this encounter Care Teams Core Man Relationship Specialty Start Date End Date Katia Stone, PABijalC [address] [place] [phone] PCP - General 05/02/17 documented as of this encounter
--- OUTSIDE RECORDS SUMMARY | 2023-12-15 14:24 | XMS_ITS | Encounter Summary ---
Author Organization [facility] Address [address] [place] [address] Care Team Providers Care Plant Control Aide Name Role Phone Katia Stone PA-C Primary Care Provider +1- [phone] Reason for Visit * Reason Onset Date Comments Appointment Related 02/07/2020 PA REQUEST Encounter Details Date Type Department Care Team (Late st Contact Info) Description 02/07/2020 Telephone [facility] Cardiology Clinic [address] [place] [address] Ulises Reinoso MD [address] [place] [address] Appointment Related (PA REQUEST) Social [...] - 02/07/2020 1327 EST PA REQUEST ECHOCARDIOGRAM [id number] 02/29/20 DYSPNEA (R06.0) VITA LIVE THANK YOU! documented in this encounter Plan of Treatment Not on file documented as of this encounter Visit Diagnoses Not on filedocumented in this encounter Care Teams Plant Control Aide Relationship Specialty Start Date End Date Katia Stone, PA-C [address] [place] [phone] PCP - General 05/02/17 documented as of this encounter
--- OUTSIDE RECORDS SUMMARY | 2023-12-15 14:24 | XMS_ITS | Encounter Summary ---
Author Organization [facility] Address [address] [place] [address] Care Team Providers Care Candy Forming Machine Operator Name Role Phone Katia Stone PA-C Primary Care Provider +1- [phone] Encounter Details Date Type Department Care Team (Late st Contact Info) Description 07/28/2020 Results Only [facility] [address] [place], [place] [address] Katia Stone, MINGO [address] [place] [address] Social History Tobacco Use Types [...] Folate 9.0 >8.6 ng/mL 08/01/2020 9:08 EDT [facility] 07/28/2020 14:3 8 EDT 08/01/2020 9:03 EDT Katia Stone PA-C CHEMISTRY & BLOOD GAS ORDERABLES [facility] [address] [place] [address] * VITAMIN B12 (07/28/2020 14:38 EDT) Vitamin B12 265 193 - 986 pg/mL 08/01/2020 9:08 EDT [facility] Comment: The results of this assay can be falsely elevated due to the consumption of Biotin. 07/28/2020 14:3 8 EDT 08/01/2020 9:03 EDT Katia Stone PA-C CHEMISTRY & BLOOD GAS ORDERABLES Performing Organization Address City/[facility]/ZIP Co de Phone Number [facility] [address] [place] [phone] * (ABNORMAL) IRON,TIBC,FERRITIN GROUP - PMC (07/28/2020 14:38 EDT) Iron 158 65 - 175 mcg/dL 08/01/2020 9:08 EDT [facility] Iron Binding Capacity 212(L) 250 - 450 mcg/dL 08/01/2020 9:08 EDT [facility] PERCENT IRON SATURATION - PMC 75(H) 14 - 50 % 08/01/2020 9:08 EDT [facility] Ferritin >1,000(H) 26 - 388 ng/mL 08/01/2020 9:08 EDT [facility] 07/28/2020 14:3 8 EDT 08/01/2020 9:03 EDT Katia Stone PA-C CHEMISTRY & BLOOD GAS ORDERABLES Performing Organization Address [facility] Co de Phone Number [facility] [address] [place] [address] * MESSAGE - PMC (07/28/2020 14:38 EDT) MESSAGE - PMC 07/29/2020 2:55 EDT [facility] Comment: WE HAVE NOT RECEIVED ORDERS. PLEASE SEND THEM TO US. THANK YOU. 07/28/2020 14:3 8 EDT 07/28/2020 15:49 EDT Narrative [facility] - 07/29/2020 2:55 EDT NO ORDERS TIGER AND LAV Katia Stone PA-C CHEMISTRY & BLOOD GAS ORDERABLES Performing Organization Address City/[facility]/ZIP Co de Phone Number [facility] [address] [place] [address] documented in this encounter Visit Diagnoses Not on filedocumented in this encounter Care Teams Candy Forming Machine Operator Relationship Specialty Start Date End Date Katia Stone PA-C [address] [place] [phone] PCP - General 05/02/17 documented as of this encounter
--- OUTSIDE RECORDS SUMMARY | 2023-12-15 14:24 | XMS_ITS | Encounter Summary ---
Author Organization [facility] Address [address] [place] [address] Care Team Providers Care News Assistant Name Role Phone Katia Stone PA-C Primary Care Provider +1- [phone] Encounter Details Date Type Department Care Team (Late st Contact Info) Description 01/15/2020 Results Only [facility] [address] [place] [address] Unknown, Provider, Social History Tobacco Use Types [...] 136 - 145 mEq/L 01/15/2020 0:36 EST [facility] 01/15/2020 0:18 EST 01/15/2020 0:20 EST Provider Unknown CHEMISTRY & BLOOD GA S ORDERABLES Performing Organization Address City/State/[facility] Co de Phone Number [facility] [address] [place] [address] documented in this encounter Visit Diagnoses Not on filedocumented in this encounter Care Teams News Assistant Relationship Specialty Start Date End Date Katia Stone, PABijalC [address] [place] [phone] PCP - General 05/02/17 documented as of this encounter
--- OUTSIDE RECORDS SUMMARY | 2023-12-15 14:24 | XMS_ITS | Encounter Summary ---
Author Organization [facility] Address [address] [place] [address] Care Team Providers Care Director Global Development Name Role Phone Katia Stone PA-C Primary Care Provider +1- [phone] Reason for Visit * Reason Onset Date Comments Appointment Related 06/16/2020 Encounter Details Date Type Department Care Team (Late st Contact Info) Description 06/16/2020 Telephone [facility] Cardiothoracic Surgery - [address] [address] Ghazala Sutherland RN Appointment Related Social History [...] Encounter - Ghazala Sutherland RN - 06/16/[address] Surgery Update Message left for pt that the Pre-Op Center will call him on Monday 06/19 between 4 - 4:45 PM. I alsoleft him a message to be sure and connect with his Oncology Social Work at PCP office to get his COVID test3-4 days prior to surgery. Surgery is on 06/26. GHAZALA SUTHERLAND RN documented in this encounter Plan of Treatment Not on file documented as of this encounter Visit Diagnoses Not on filedocumented in this encounter Care Teams Director Global Development Relationship Specialty Start Date End Date Katia Stone, PABijalC [address] [place] [address] PCP - General 05/02/17 documented as of this encounter
--- OUTSIDE RECORDS SUMMARY | 2023-12-15 14:24 | XMS_ITS | Encounter Summary ---
Author Organization [facility] Address [address] [place] [address] Care Team Providers Care Civil Technician Name Role Phone Katia Stone PA-C Primary Care Provider +1- [phone] Reason for Visit * Reason Onset Date Comments Appointment Related 06/06/2020 Encounter Details Date Type Department Care Team (Late st Contact Info) Description 06/06/2020 Telephone [facility] Cardiothoracic Surgery - [facility] [address] [place] [address] Ja Browne MD [address] [place] [phone] Appointment Related Social History Tobacco Use [...] Telephone Encounter - Alma Dhillon - 06/06/2020 1713 EDT At her request, I have telephoned Nurse Patient Biller, Nila, at [facility] to advise of this patient's [...] on filedocumented in this encounter Care Teams Civil Technician Relationship Specialty Start Date End Date Katia Stone, BELLAC [address] [place] [phone] PCP - General 05/02/17 documented as of this encounter
--- OUTSIDE RECORDS SUMMARY | 2023-12-15 14:25 | XMS_ITS | Encounter Summary ---
Author Organization [facility] Address [address] [place] [address] Care Team Providers Care Direct Care Specialist Name Role Phone Katia Stone PA-C Primary Care Provider +1- [phone] Encounter Details Date Type Department Care Team (Late st Contact Info) Description 05/28/2018 Historical Results Only [facility] Radiology Results [address] [place] [place], [place] [address] Haja Richmond MD [address] [place] [phone] Social History Tobacco Use Types Packs/Day [...] - PMC 129(H) <100 05/28/2018 1:18 EDT [facility] 05/28/2018 0:45 EDT 05/28/2018 0:55 EDT Haja Richmond MD CHEMISTRY & BLOOD G ORDERABLES [facility] * (ABNORMAL) COMPLETE BLOOD COUNT AND DIFFERENTIAL (05/28/2018 0:45 EDT) WBC 10.2 4.0 - 10.5 05/28/2018 0:59 EDT [facility] RBC 3.77(L) 4.70 - 6.00 05/28/2018 0:59 EDT [facility] Hemoglobin 12.7(L) 13.5 - 18.0 05/28/2018 0:59 EDT [facility] HCT 35.3(L) 42.0 - 52.0 05/28/2018 0:59 EDT [facility] MCV 93.6 78 - 100 05/28/2018 0:59 [facility] MCH 33.7(H) 27 - 31 05/28/2018 0:59 [facility] MCHC 36.0 32 - 36 05/28/2018 0:59 [facility] RDW-CV - PMC 12.0 11.5 - 14.0 05/28/2018 0:59 [facility] PLATELET COUNT - PMC 306 150 - 450 05/28/2018 0:59 [facility] NEUTROPHILS % (AUTO) - PMC 76.5(H) 42.0 - 75.0 05/28/2018 0:59 [facility] LYMPHOCYTES % (AUTO) - PMC 14.0(L) 16.0 - 52.0 05/28/2018 0:59 [facility] MONOCYTES % (AUTO) - PMC 7.9 1.0 - 11.0 05/28/2018 0:59 [facility] EOSINOPHILS % (AUTO) - PMC 0.2 0.0 - 7.0 05/28/2018 0:59 [facility] BASOPHILS % (AUTO) - PMC 0.2 0.0 - 4.0 05/28/2018 0:59 [facility] NUCLEATED RBC % (AUTO) - PMC 0.0 <1 05/28/2018 0:59 [facility] NEUTROPHILS # (AUTO) - PMC 7.8(H) 1.5 - 6.6 05/28/2018 0:59 [facility] LYMPHOCYTES # (AUTO) - PMC 1.4 1.0 - 3.5 05/28/2018 0:59 [facility] MONOCYTES # (AUTO) - PMC 0.8 <1.0 05/28/2018 0:59 [facility] EOSINOPHILS # (AUTO) - PMC 0.0 <0.7 05/28/2018 0:59 [facility] BASOPHILS # (AUTO) - PMC 0.0 <0.1 05/28/2018 0:59 [facility] NUCLEATED RBC # (AUTO) - PMC 0.00 <1 05/28/2018 0:59 [facility] 05/28/2018 0:45 EDT 05/28/2018 0:55 EDT Haja Richmond MD PACKAGES & DNA PROB E ORDERABLES Performing Organization Address [facility]/ZIP Co de Phone Number [facility] * TROPONIN I (05/28/2018 0:45 EDT) [facility] Troponin I (ng/mL) <0.05 <0.10 05/28/2018 1:23 EDT [facility] Comment: REFERENCE RANGE: Negative: ? <0.10 ng/mL Indeterminate: 0.10-0.80 ng/mL Positive: ? >0.80 ng/mL ........................................... The results of this assay can be falsely decreased due to the consumption of Biotin. 05/28/2018 0:45 EDT 05/28/2018 0:56 EDT Haja Richmond MD CHEMISTRY & BLOOD G ORDERABLES Performing Organization Address [facility] Co de Phone Number [facility] * (ABNORMAL) HEPATIC & CMP COMBO,FASTING - PMC (05/28/2018 0:45 EDT) [facility] Sodium 120(L) 136 - 145 05/28/2018 1:21 [facility] Potassium 4.0 3.5 - 5.1 05/28/2018 1:21 [facility] Chloride 83(L) 96 - 107 05/28/2018 1:21 [facility] CO2 Total 25.9 21 - 32 05/28/2018 1:21 [facility] Anion Gap 11.1 05/28/2018 1:21 [facility] BUN 6(L) 7 - 25 05/28/2018 1:21 [facility] Creatinine 0.60(L) 0.7 - 1.30 05/28/2018 1:21 [facility] Estimated GFR >60 >60 05/28/2018 1:25 [facility] Comment: EGFR UNITS: mL/min/1.73 m 2 CKD-EPI Equation used to calculate. Glucose 122 70 - 180 05/28/2018 1:21 [facility] Calcium 9.1 8.5 - 10.5 05/28/2018 1:21 [facility] CALCIUM,CORRECTE D - PMC 9.8 8.5 - 10.5 05/28/2018 1:21 [facility] BILIRUBIN - PMC 0.30 0.00 - 1.00 05/28/2018 1:21 [facility] AST 90(H) 15 - 37 05/28/2018 1:21 [facility] ALT 87(H) 12 - 78 05/28/2018 1:21 [facility] Alkaline Phosphatase 89 46 - 116 05/28/2018 1:21 [facility] Total Protein 8.3(H) 6.4 - 8.2 05/28/2018 1:21 [facility] Albumin 3.1(L) 3.4 - 5.0 05/28/2018 1:21 [facility] GLOBULIN - PMC 5.2 05/28/2018 1:21 [facility] ALBUMIN/GLOBULIN RATIO - PMC 0.5 05/28/2018 1:21 [facility] 05/28/2018 0:45 EDT 05/28/2018 0:56 EDT Haja Raulito Richmond MD CHEMISTRY & BLOOD G ORDERABLES [facility] * XR CHEST 2 VIEWS (05/28/2018 0:11 EDT) Anatomical Region Laterality Modality Other 05/28/2018 0:11 EDT Narrative 05/28/2018 0:11 EDT [facility]: [address] [address] Diagnostic Imaging Report Signed Patient Name:DAVID FARFAN ? Date of :1950 ? MR Number:[id number] Age:67 ?Sex:M Category: CR ? Date of [...] Procedure Note Alma Sherwood MD - [facility] [place] [address] Diagnostic Imaging Report Signed Patient Name:DAVID FARFAN Number:[id number] Date of :1950 MRNumber:[id number] Age:67 Sex:M Category: CR Date ofExam:05/28/18 Procedure: CR: Chest; Frontal/LAT viewsAccession: [id number] Ordering Physician: Haja Richmond MD CC: Haja [...] documented as of this encounter Care Teams Direct Care Specialist Relationship Specialty Start Date End Date Katia Stone, MINGO [address] [place] [phone] PCP - General 05/02/17 documented as of this encounter
--- OUTSIDE RECORDS SUMMARY | 2023-12-15 14:25 | XMS_ITS | Encounter Summary ---
Author Organization [facility] Address [address] [place] [address] Care Team Providers Care Human Resource Internship Name Role Phone Katia Stone PA-C Primary Care Provider +1- [phone] Reason for Visit * Reason Onset Date Comments Labs Only 07/22/2017 from 07/16 Encounter Details Date Type Department Care Team (Late st Contact Info) Description 07/22/2017 Telephone [facility] Cardiology - [facility] [address] [facility] [place] [address] Tony Rosenberg MD [address] [place] [address] [address] [place] [address] Labs Only (from 07/16) Social [...] call office back with call back number [phone]. * Telephone Encounter - Belinda Falk RN - 07/23/2017 1054 EDT Call received from Yessica with questions on when patient's follow-up appointment was with Dr. Rosenberg, where the labwork needed to be sent to, and in put from cardiology. Provided Yessica the provider access line for PCP to discuss patient's care with Dr. Rosenberg. Also discussed with Yessica since patient is seen in [facility] records are not accessible to our office (labs, and outside office notes). Yessica to review with PCP and formulate coordination of care with [facility]. * Telephone Encounter - Belinda Falk RN - 07/22/2017 1500 EDT Call placed to Yessica regarding Tim Mera unable to reach patient by phone. Message left on voicemail to call office back with call back number [phone]. * Telephone Encounter - Morena Lux - 07/22/2017 1456 EDT Yessica from [facility] Regarding patients labs from 07/16 Has anyone addressed them Please call to advise documented in this encounter Plan of Treatment Not on file documented as of this encounter Visit Diagnoses Not on filedocumented in this encounter Care Teams Human Resource Internship Relationship Specialty Start Date End Date Katia Stone, MINGO [address] [place] [phone] PCP - General 05/02/17 documented as of this encounter
--- OUTSIDE RECORDS SUMMARY | 2023-12-15 14:25 | XMS_ITS | Encounter Summary ---
Author Organization [facility] Address [address] [place] [address] Care Team Providers Care Crisis Specialist Name Role Phone Katia Stone PA-C Primary Care Provider +1- [phone] Encounter Details Date Type Department Care Team (Late st Contact Info) Description 08/13/2018 Historical Results Only [facility] [address] [place], [place] [address] Katia Stone, MINGO [address] [place] [address] Social History Tobacco Use Types [...] Sodium 125(L) 136 - 145 08/13/2018 12:52 [facility] Potassium 4.9 3.5 - 5.1 08/13/2018 12:52 [facility] Chloride 91(L) 96 - 107 08/13/2018 12:52 [facility] CO2 Total 25.4 21 - 32 08/13/2018 12:52 [facility] Anion Gap 8.6 08/13/2018 12:52 [facility] BUN 7 7 - 25 08/13/2018 12:52 [facility] Creatinine 0.59(L) 0.7 - 1.30 08/13/2018 12:52 [facility] Estimated GFR >60 >60 08/13/2018 12:53 [facility] Comment: EGFR UNITS: mL/min/1.73 m 2 CKD-EPI Equation used to calculate. Glucose 88 FASTIN -99 08/13/2018 12:52 [facility] Calcium 8.1(L) 8.5 - 10.5 08/13/2018 12:52 [facility] CALCIUM,CORRECTE D - PMC 8.7 8.5 - 10.5 08/13/2018 12:52 [facility] BILIRUBIN - PMC 0.20 0.00 - 1.00 08/13/2018 12:52 [facility] AST 40(H) 15 - 37 08/13/2018 12:52 [facility] ALT 45 12 - 78 08/13/2018 12:52 [facility] Alkaline Phosphatase 112 46 - 116 08/13/2018 12:[address] [facility] Total Protein 7.1 6.4 - 8.2 08/13/2018 12:52 [facility] Albumin 3.2(L) 3.4 - 5.0 08/13/2018 12:[address] [facility] GLOBULIN - PMC 3.9 08/13/2018 12:[address] [facility] ALBUMIN/GLOBULIN RATIO - PMC 0.8 08/13/2018 12:[address] [facility] 08/13/2018 11:2 8 EDT 08/13/2018 11:37 EDT Katia Stone PA-C CHEMISTRY & BLOOD GAS ORDERABLES [facility] documented in this encounter Visit Diagnoses Not on filedocumented in this encounter Care Teams Crisis Specialist Relationship Specialty Start Date End Date Katia Stone PA-C [address] [place] [phone] PCP - General 05/02/17 documented as of this encounter
--- OUTSIDE RECORDS SUMMARY | 2023-12-15 14:25 | XMS_ITS | Encounter Summary ---
Author Organization [facility] Address [address] [place] [address] Care Team Providers Care Water Resource Project Manager Name Role Phone Katia Stone PA-C Primary Care Provider +1- [phone] Reason for Visit * Reason Onset Date Comments Other 07/16/2017 Encounter Details Date Type Department Care Team (Late st Contact Info) Description 07/16/2017 Telephone [facility] Cardiology - [place] [place] [address] Caitie Atwood, TAIWO [address] [facility] [address] [place] [address] Other Social History Tobacco Use [...] 07/16/2017 1358 EDT I spoke to the childcare teacher at the [facility]. There following the patient.He [...] filedocumented in this encounter Care Teams Water Resource Project Manager Relationship Specialty Start Date End Date Katia Stone, MINGO [address] [place] [phone] PCP - General 05/02/17 documented as of this encounter
--- OUTSIDE RECORDS SUMMARY | 2023-12-15 14:25 | XMS_ITS | Encounter Summary ---
Author Organization [facility] Address [address] [place] [address] Care Team Providers Care Nut Dehydrator Operator Name Role Phone Katia Stone PA-C Primary Care Provider +1- [phone] Reason for Visit * Reason Comments Shortness of Breath Encounter Details Date Type Department Care Team (Late st Contact Info) Description 06/11/2017 13:40 EDT Office Visit [facility] Cardiology [address] [address] Tony Rosenberg MD [address] [place] [address] [place] [phone] SOB (shortness of breath) (Primary Dx) [...] Rosenberg MD - 06/11/2017 0000 EDT [facility] CARDIOLOGY - MANITOU PROGRESS / FOLLOWUP NOTE - 06/11/2017 PROBLEM LIST: 1. Third-degree heart block. a. Status post dual chamber pacemaker insertion. b. Pericardial effusion. c. Pacemaker generator lead repositioning and pericardiocentesis. 2. Large pleural effusions. 3. Hypertension. 4. Hyponatremia. SUBJECTIVE: Mr Mera was seen at the [facility] after his recent hospitalization at the [facility] for AV block. He had a dual-chamber [...] substantial bilateral pleural effusions. Echocardiogram done in [facility] shows preserved LV systolic function. No [...] Mr Mera to be admitted to the [facility] tomorrow for bilateral thoracentesis. Tony Rosenberg MD 03 51 PM - Tony Rosenberg MD ln Dictation ID: [id number] cc: Shailesh Torres MD, [address] [address] Katia Mccallum PA-C, [place] [address] [address] [place] [address] documented in this encounter Plan of Treatment Not on file documented as of this encounter Visit Diagnoses Diagnosis SOB (shortness of breath)- Primary Shortness of breath documented in this encounter Care Teams Nut Dehydrator Operator Relationship Specialty Start Date End Date Katia Stone PA-C [facility] [address] [place] [phone] PCP - General 05/02/17 documented as of this encounter
--- OUTSIDE RECORDS SUMMARY | 2023-12-15 14:25 | XMS_ITS | Encounter Summary ---
Author Organization [facility] Address [address] [place] [address] Care Team Providers Care Carpenter Bridge Name Role Phone Katia Stone PA-C Primary Care Provider +1- [phone] Reason for Visit * Reason Onset Date Comments Other 05/29/2017 Encounter Details Date Type Department Care Team (Late st Contact Info) Description 05/29/2017 Telephone [facility] Cardiology - [address] [place], [place] [id number] Daija Mariee, RN Other Social History Tobacco [...] 1018 EDT Spoke with nurse Yessica at [facility] She spoke with pt today and he had 2 episodes of sharp pains that lasted seconds at the pacemaker site Yessica- RN would like a call back with plan She states pt has had a 11# weight gain, denies shortness of breath Daughter in law takes care of meds- [phone] Spoke with pt- he had 2 quick [...] on filedocumented in this encounter Care Teams Carpenter Bridge Relationship Specialty Start Date End Date Katia Stone, MINGO [address] [address] PCP - General 05/02/17 documented as of this encounter
--- OUTSIDE RECORDS SUMMARY | 2023-12-15 14:25 | XMS_ITS | Encounter Summary ---
Author Organization [facility] Address [address] [place] [address] Care Team Providers Care Hire Car Driver Name Role Phone Katia Stone PA-C Primary Care Provider +1- [phone] Encounter Details Date Type Department Care Team (Late st Contact Info) Description 12/12/2018 Results Only Imaging [facility] Radiology Results [address] [place] [address] Wang Vila MD [address] [facility] [place] [address] Social History Tobacco Use Types [...] 22:1 5 EDT Narrative 12/12/2018 22:15 EDT [facility] ?[address] ?[place] [address] ?Diagnostic Imaging Report ? Signed ? Patient Name:ADOLPH,DAVID Martinez ? Date of :1950 ?MR Number:[id number] ? Age:68 ?Sex:M ? Category: CR ?Date [...] the [facility] at [phone] ? Dictated by: Alma Sherwood DO ?D/ ?? 2215 ?? Transcribed by: GABE ?D/T: ? E-Signed by: Alma Sherwood DO ?D/ ?? 2327 ? Procedure Note Alma Sherwood MD - 01/09/2019 [facility]: [address] [address] Diagnostic Imaging Report Signed Patient Name:DAVID FARFAN FAccount Number:[id number] Date of :1950 MRNumber:[id number] Age:68 Sex:M Category: CR Date ofExam:12/12/18 Procedure: CR: Chest; Frontal/LAT viewsAccession: [id number] Ordering Physician: Wang Vila MD CC: [...] questions regarding this report, please contact the [facility] at [phone] Dictated by: Alma Sherwood DOD/ 2218 Transcribed by: JOSEPH/T: E-Signed by: Alma Sherwood DOD/ 9958 Wang Vila MD IMG DIAGNOSTIC IMAGI NG ORDERABLES documented in this encounter Visit Diagnoses Not on filedocumented in this encounter Additional Health Concerns Infection Onset Date Last Indicated Resolved Time RSV 01/31/2022 01/31/2022 02/10/2022 22:1 5 EST documented as of this encounter Care Teams Hire Car Driver Relationship Specialty Start Date End Date Katia Stone, MINGO [address] [place] [phone] PCP - General 05/02/17 documented as of this encounter
--- OUTSIDE RECORDS SUMMARY | 2023-12-15 14:25 | XMS_ITS | Encounter Summary ---
Author Organization [facility] Address [address] [place] [address] Care Team Providers Care Button Maker Name Role Phone Katia Stone PA-C Primary Care Provider +1- [phone] Reason for Visit * Reason Onset Date Comments Other 11/03/2019 pacemaker proble m Encounter Details Date Type Department Care Team (Late st Contact Info) Description 11/03/2019 Telephone [facility] Cardiology - [address] [place] [address] Tony Rosenberg MD [employer] [facility] [address] [place] [address] Other (pacemaker problem) Social History [...] Dr. Rosenberg. Needs to be done at [facility] when we have the lead extraction program up and running. Will keep you posted. JW Nila expressed understanding, she mentioned patient is anxious and would like to have more information regarding next steps. * Telephone Encounter - Marilyn Escoto - 11/03/2019 1017 EDT Spoke with Nila at [facility], she is wondering about update in regards to plan for lead revision. Nila asks for an update you can reach her at [phone] extension [phone] Please advise * Telephone Encounter - Jada Ochoa - 11/03/2019 1015 EDT Patient's pacemaker has been shocking him. documented in this encounter Plan of Treatment Not on file documented as of this encounter Visit Diagnoses Not on filedocumented in this encounter Care Teams Button Maker Relationship Specialty Start Date End Date Katia Stone PA-C [address] [place] [address] PCP - General 05/02/17 documented as of this encounter
--- OUTSIDE RECORDS SUMMARY | 2023-12-15 14:25 | XMS_ITS | Encounter Summary ---
Author Organization [facility] Address [address] [place] [address] Care Team Providers Care Clinical Account Specialist Name Role Phone Katia Stone PA-C Primary Care Provider +1- [phone] Encounter Details Date Type Department Care Team (Late st Contact Info) Description 06/25/2018 Historical Results Only [facility] [address] [place] [address] [place], [place] [id number] Leonard Crespo MD [address] [place] [address],[address] [place], [place] [id number] [phone] Social History Tobacco Use Types Packs/Day Years [...] IGE - PMC <0.35 06/29/2018 15:54 EDT [facility] Comment: Class 0 (Negative <0.35) Test Performed by: [place] [address] 06/25/2018 18:5 0 EDT 06/25/2018 18:56 EDT Leonard Crespo MD CHEMISTRY & BLOOD GA S ORDERABLES [facility] * ENGLISH MAXWELL IGE - PMC (06/25/2018 18:50 EDT) ENGLISH MAXWELL IGE <0.35 06/29/2018 15:54 EDT [facility] Comment: Class 0 (Negative <0.35) Test Performed by: [address] [id number] 06/25/2018 18:5 0 EDT 06/25/2018 18:56 EDT Leonard Crespo MD CHEMISTRY & BLOOD GA S ORDERABLES [facility] * HOUSE DUST MITES/D.P., IGE - PMC (06/25/2018 18:50 EDT) HOUSE DUST MITES/D.P., IGE - PMC <0.35 06/29/2018 15:54 EDT [facility] Comment: Class 0 (Negative <0.35) Test Performed by: [address] [id number] 06/25/2018 18:5 0 EDT 06/25/2018 18:56 EDT Leonard Crespo MD CHEMISTRY & BLOOD GA S ORDERABLES Performing Organization Address City/[facility]/ZIP Co de Phone Number [facility] * [facility] ALLER[facility],S - PMC (06/25/2018 18:50 EDT) ALTERNARIA TENUIS, IGE - PMC <0.35 06/29/2018 15:54 [facility] Comment:Class 0 (Negative <0 .35) CLAD - PMC <0.35 06/29/2018 15:54 [facility] Comment:Class 0 (Negative <0 .35) HOUSE DUST MITE/D.F., IGE <0.35 06/29/2018 15:54 EDT [facility] Comment: Class 0 (Negative <0.35) Test Performed by: [facility] - [address] [address] CAT - PMC <0.35 06/29/2018 15:54 [place] [...] MD CHEMISTRY & BLOOD GA S ORDERABLES [facility] * (ABNORMAL) HEPATIC & CMP [...] MD CHEMISTRY & BLOOD GA S ORDERABLES [facility] documented in this encounter Visit Diagnoses Not on filedocumented in this encounter Care Teams Clinical Account Specialist Relationship Specialty Start Date End Date Katia Stone, PABijalC [address] [place] [phone] PCP - General 05/02/17 documented as of this encounter
--- OUTSIDE RECORDS SUMMARY | 2023-12-15 14:25 | XMS_ITS | Encounter Summary ---
Author Organization [facility] Address [address] [place] [address] Care Team Providers Care Health Plan Advisor Name Role Phone Katia Stone PA-C Primary Care Provider +1- [phone] Reason for Visit * Reason Onset Date Comments Coordination Of Care 11/30/2019 Follow-up 12/02/2019 Follow-up 12/22/2019 Pacemaker Problem 12/23/2019 Encounter Details Date Type Department Care Team (Late st Contact Info) Description 11/30/2019 Telephone [facility] Cardiology - [address] [place] [address] Tony Rosenberg MD [address] [place], [place] [address] [place] [address] Coordination Of Care; Follow-up; Follow-up; [...] Telephone Encounter - Tony Tim - 11/30/2019 7034 EDT Angela is calling to speak to [...] filedocumented in this encounter Care Teams Health Plan Advisor Relationship Specialty Start Date End Date Katia Stone, PABijalC [address] [place] [phone] PCP - General 05/02/17 documented as of this encounter
--- OUTSIDE RECORDS SUMMARY | 2023-12-15 14:25 | XMS_ITS | Encounter Summary ---
Author Organization [facility] Address [address] [place] [address] Care Team Providers Care Hand Ii Cutter Name Role Phone Katia Stone PA-C Primary Care Provider +1- [phone] Reason for Visit * Reason Comments Arrhythmia Encounter Details Date Type Department Care Team (Late st Contact Info) Description 10/13/2019 16:00 EDT Office Visit [facility] Cardiology [address] [address] Tony Rosenberg MD [address] [place] [address] Heart block AV third degree (HCC-CMS) [...] file Gets together: Not on file Attends latter-day service: Not on file Active member of [...] complete documented in this encounter Care Teams Hand Ii Cutter Relationship Specialty Start Date End Date Katia Stone, PABijalC [address] [place] [phone] PCP - General 05/02/17 documented as of this encounter
--- OUTSIDE RECORDS SUMMARY | 2023-12-15 14:25 | XMS_ITS | Encounter Summary ---
Author Organization [facility] Address [address] [place] [address] Care Team Providers Care Tools Developer Name Role Phone Katia Stone PA-C Primary Care Provider +1- [phone] Encounter Details Date Type Department Care Team (Late st Contact Info) Description 12/12/2018 Results Only [facility] [address] [place] [address] [place] [address] Wang Vila MD [address] [facility], [facility] [address] [place] [address] Social History Tobacco Use Types [...] 3.4 - 5.0 g/dl 12/12/2018 23:24 EDT [facility] GLOBULIN - PMC 4.4 g/dl 12/12/2018 23:24 EDT [facility] ALBUMIN/GLOBULIN RATIO - PMC 0.6 12/12/2018 23:24 EDT [facility] 12/12/2018 22:1 6 EDT 12/12/2018 23:12 EDT Wang Vila MD CHEMISTRY & BLOOD GA S ORDERABLES Performing Organization Address [facility] Co de Phone Number [facility] * PROCALCITONIN - PMC (12/12/2018 22:16 EDT) Procalcitonin <0.05 <0.50 ng/mL 12/12/2018 23:13 EDT [facility] Comment: Concentration of < 0.5 [...] & PF4 ORD ERABLES Performing Organization Address City/[facility]/ZIP Co de Phone Number [facility] * (ABNORMAL) BNP - PMC (12/12/2018 22:15 EDT) B-TYPE NATRIURETIC PEPTIDE - PMC 123(H) <100 pg/mL 12/12/2018 22:40 EDT [facility] 12/12/2018 22:1 5 EDT 12/12/2018 22:19 EDT Wang Vila MD CHEMISTRY & BLOOD GA S ORDERABLES Performing Organization Address [facility] de Phone Number [facility] * TROPONIN I (12/12/2018 22:06 EDT) Pathologist [facility] Troponin I (ng/mL) <0.05 <0.10 ng/ml 12/12/2018 23:00 [facility] Comment: REFERENCE RANGE: Negative: ? <0.10 ng/mL Indeterminate: 0.10-0.80 ng/mL Positive: ? >0.80 ng/mL ........................................... The results of this assay can be falsely decreased due to the consumption of Biotin. 12/12/2018 22:0 6 EDT 12/12/2018 22:18 EDT Wang Vila MD CHEMISTRY & BLOOD GA S ORDERABLES Performing Organization Address [facility] de Phone Number [facility] * (ABNORMAL) BASIC METABOLIC PANEL,RANDOM - PMC (12/12/2018 22:06 EDT) [facility] Sodium 120(L) 136 - 145 mEq/L 12/12/2018 [...] 70 - 180 mg/dl 12/12/2018 23:00 EDT [facility] Calcium 8.1(L) 8.5 - 10.5 mg/dl 12/12/2018 23:00 EDT [facility] 12/12/2018 22:0 6 EDT 12/12/2018 22:18 EDT Wang Vila MD CHEMISTRY & BLOOD GA S ORDERABLES [facility] documented in this encounter Visit Diagnoses Not on filedocumented in this encounter Care Teams Tools Developer Relationship Specialty Start Date End Date Katia Stone, PABijalC [address] [place] [phone] PCP - General 05/02/17 documented as of this encounter
--- OUTSIDE RECORDS SUMMARY | 2023-12-15 14:25 | XMS_ITS | Encounter Summary ---
Author Organization [facility] Address [address] [place] [address] Care Team Providers Care Usability Strategist Name Role Phone Katia Stone PA-C Primary Care Provider +1- [phone] Encounter Details Date Type Department Care Team (Late st Contact Info) Description 06/18/2018 Historical Results Only [facility] [address] [place], [place] [address] Katia Stone, MINGO [address] [place] [address] Social History Tobacco Use Types [...] Sodium 125(L) 136 - 145 06/18/2018 13:02 [facility] Potassium 4.9 3.5 - 5.1 06/18/2018 13:02 [facility] Chloride 88(L) 96 - 107 06/18/2018 13:02 [facility] CO2 Total 27.6 21 - 32 06/18/2018 13:02 [facility] Anion Gap 8.4 06/18/2018 13:02 [facility] BUN 8 7 - 25 06/18/2018 13:02 [facility] Creatinine 0.69(L) 0.7 - 1.30 06/18/2018 13:02 [facility] Estimated GFR >60 >60 06/18/2018 13:03 [facility] Comment: EGFR UNITS: mL/min/1.73 m 2 CKD-EPI Equation used to calculate. Glucose 86 FASTIN -99 06/18/2018 13:02 [facility] Calcium 8.4(L) 8.5 - 10.5 06/18/2018 13:02 [facility] CALCIUM,CORRECTE D - PMC 8.9 8.5 - 10.5 06/18/2018 13:02 [facility] BILIRUBIN - PMC 0.60 0.00 - 1.00 06/18/2018 13:02 [facility] AST 63(H) 15 - 37 06/18/2018 13:02 [facility] ALT 58 12 - 78 06/18/2018 13:02 [facility] Alkaline Phosphatase 94 46 - 116 06/18/2018 13:02 EDT [facility] Total Protein 7.3 6.4 - 8.2 06/18/2018 13:02 [facility] Albumin 3.4 3.4 - 5.0 06/18/2018 13:02 [facility] GLOBULIN - PMC 3.9 06/18/2018 13:02 [facility] ALBUMIN/GLOBULIN RATIO - PMC 0.8 06/18/2018 13:02 [facility] 06/18/2018 12:1 4 EDT 06/18/2018 12:16 EDT Katia Stone PA-C CHEMISTRY & BLOOD GAS ORDERABLES [facility] documented in this encounter Visit Diagnoses Not on filedocumented in this encounter Care Teams Usability Strategist Relationship Specialty Start Date End Date Katai Stone PA-C [address] [place] [phone] PCP - General 05/02/17 documented as of this encounter
--- OUTSIDE RECORDS SUMMARY | 2023-12-15 14:25 | XMS_ITS | Encounter Summary ---
Author Organization [facility] Address [address] [place] [address] Care Team Providers Care Rolling Chair Pusher Name Role Phone Katia Stone PA-C Primary Care Provider +1- [phone] Encounter Details Date Type Department Care Team (Late st Contact Info) Description 06/11/2017 Results Only Imaging [facility] Adult Primary Care - [address] [id number] Michael Pratt MD [facility] [place] [address] Social History Tobacco Use Types [...] - there is no report. Procedure Note OBSERVER HELPER, IMAGING - 06/13/2017 This is an outside study - there is no report. Michael Pratt MD IMG OTHER IMAGING OR DERABLES documented in this encounter Visit Diagnoses Not on filedocumented in this encounter Care Teams Rolling Chair Pusher Relationship Specialty Start Date End Date Katia Stone, PABijalC [address] [place] [address] PCP - General 05/02/17 documented as of this encounter
--- OUTSIDE RECORDS SUMMARY | 2023-12-15 14:25 | XMS_ITS | Encounter Summary ---
Author Organization [facility] Address [address] [place] [address] Care Team Providers Care Coding Assistant Name Role Phone Katia Stone PA-C Primary Care Provider +1- [phone] Reason for Visit * Reason Onset Date Comments Other 06/18/2017 discharged on 06.03.15 Follow-up 07/16/2017 Encounter Details Date Type Department Care Team (Late st Contact Info) Description 06/18/2017 Telephone [facility] Cardiology - [address] [place] [address] Pierre Rubio MD [address] [facility] [address] [place] [address] Other (discharged on 06.03.15); Follow-up [...] - 07/16/2017 1310 EDT Riley WINSTON at [facility] called. States : Wt 2 weeks [...] taper [facility] [place], stated colchicine has run out- not sure if pt needs a refill or not. States he called pt's PCP in [place] and that MD wants to know if RN should draw labs? Please call back JOAN as he is with the pt now. Routing to Giovanni Sam NP and Belinda Eddy RN and will also go speak with one of them as well. Let Riley WINSTON know that Belinda Eddy would call back. * Telephone Encounter - Isidra Telles - 07/16/[address] [facility], Weight at 224, has been fluctuating Limited edema Has been winded Less endurance Cough has green secretions Some slight harsh breathing sounds Questions: Blood Work? Prednisone Taper seems to be off, will need a refill if continuing in the same manner * Telephone Encounter - Belinda Falk RN - 06/18/2017 1630 EDT Spoke with Riley horta [facility] mentioned call placed to patient to confirm medication taking. Per patient he was taking Torsemide 40 mg daily and was not taking lasix. Per Bill this was differnet then what was discussed. Referred home Health to discuss care with Shailesh Torres MD in [place] and Katia Mccallum PA-C, [facility]. * Telephone Encounter - Belinda [...] on 06.16.17. He has been feeling ok. [facility] health is calling to discuss his medications [...] filedocumented in this encounter Care Teams Coding Assistant Relationship Specialty Start Date End Date Katia Stone PA-C [address] [place] [phone] PCP - General 05/02/17 documented as of this encounter
--- OUTSIDE RECORDS SUMMARY | 2023-12-15 14:25 | XMS_ITS | Encounter Summary ---
Author Organization [facility] Address [address] [place] [address] Care Team Providers Care Pump Oiler Name Role Phone Katia Stone PA-C Primary Care Provider +1- [phone] Encounter Details Date Type Department Care Team (Late st Contact Info) Description 12/12/2018 Results Only [facility] [address] [place] [address] [place] [address] Wang Vila MD [address] [facility], [facility] 1 [place] [address] Social History Tobacco Use Types [...] 4.0 - 10.5 10 3/uL 12/12/2018 22:21 [facility] RBC 3.85(L) 4.70 - 6.00 10 6/uL 12/12/2018 22:21 [facility] Hemoglobin 13.1(L) 13.5 - 18.0 g/dL 12/12/2018 22:21 [facility] HCT 36.1(L) 42.0 - 52.0 % 12/12/2018 22:21 [facility] MCV 93.8 78 - 100 fL 12/12/2018 22:21 [facility] MCH 34.0(H) 27 - 31 pg 12/12/2018 22:21 [facility] MCHC 36.3(H) 32 - 36 g/dL 12/12/2018 22:21 [facility] RDW-CV - PMC 11.9 11.5 - 14.0 % 12/12/2018 22:21 [facility] PLATELET COUNT - PMC 208 150 - 450 10 3/uL 12/12/2018 22:21 [facility] NEUTROPHILS % (AUTO) - PMC 52.5 42.0 - 75.0 % 12/12/2018 22:21 [facility] LYMPHOCYTES % (AUTO) - PMC 32.3 16.0 - 52.0 % 12/12/2018 22:21 [facility] MONOCYTES % (AUTO) - PMC 7.8 1.0 - 11.0 % 12/12/2018 22:21 [facility] EOSINOPHILS % (AUTO) - PMC 5.5 0.0 - 7.0 % 12/12/2018 22:21 [facility] BASOPHILS % (AUTO) - PMC 1.4 0.0 - 4.0 % 12/12/2018 22:21 [facility] NUCLEATED RBC % (AUTO) - PMC 0.0 <1 % 12/12/2018 22:21 [facility] NEUTROPHILS # (AUTO) - PMC 5.3 1.5 - 6.6 10 3/uL 12/12/2018 22:21 [facility] LYMPHOCYTES # (AUTO) - PMC 3.3 1.0 - 3.5 10 3/uL 12/12/2018 22:21 [facility] MONOCYTES # (AUTO) - PMC 0.8 <1.0 10 3/uL 12/12/2018 22:21 [facility] EOSINOPHILS # (AUTO) - PMC 0.6 <0.7 10 3/uL 12/12/2018 22:21 [facility] BASOPHILS # (AUTO) - PMC 0.1 <0.1 10 3/uL 12/12/2018 22:21 [facility] NUCLEATED RBC # (AUTO) - PMC 0.00 <1 10 3/uL 12/12/2018 22:21 [facility] 12/12/2018 22:1 5 EDT 12/12/2018 22:19 EDT Wang Vila MD PACKAGES & DNA PROBE ORDERABLES [facility] documented in this encounter Visit Diagnoses Not on filedocumented in this encounter Care Teams Pump Oiler Relationship Specialty Start Date End Date Katia Stone PA-C [address] [place] [phone] PCP - General 05/02/17 documented as of this encounter
--- OUTSIDE RECORDS SUMMARY | 2023-12-15 14:25 | XMS_ITS | Encounter Summary ---
Author Organization [facility] Address [address] [place] [address] Care Team Providers Care Lan Administrator Name Role Phone Katia Stone PA-C Primary Care Provider [phone] Reason for Referral * Consult (Routine) - New Request Specialty Diagnoses / Procedures Referred By Contgaye t Referred To Contact Diagnoses Heart failure, unspecified HF chronicity, unspecified heart failure type (HCC-CMS) Subacute effusive constrictive pericarditis Michael Pratt MD [facility] [place] [address] Referral ID Status Reason Start Date Expiration Date Visits Requested Visits Authorized [id number] New Request Specialty Services Required 06/16/2017 1 1 Question Answer Reason for Request: f/u constrictive pericarditis Expected Discharge Date (Inpatient Only): 06/16/[address] [facility] With [facility] Torres * Follow Up (3 - 10 Business Days) - Receiving Office to Obtain Authorization Specialty Diagnoses / Procedures Referred By Contac t Referred To Contact Diagnoses Heart failure, unspecified HF chronicity, unspecified heart failure type (HCC-CMS) Subacute effusive constrictive pericarditis Bg Atwood MD [address] [facility] [address] [place] [address] Referral ID Status Reason Start Date Expiration Date Visits Requested Visits Authorized [id number] Receiving Office to Obtain Authorization Continuity of Care 8 1 1 Question Answer Reason for Request: f/u hospitalization for constrictive pericarditis Expected Discharge Date (Inpatient Only): 06/16/2017 * Referral (Routine/Next Available) - New Request Specialty Diagnoses / Procedures Referred By Jael t Referred To Contact Diagnoses Heart failure, unspecified HF chronicity, unspecified heart failure type ([facility]-CMS) Subacute effusive constrictive pericarditis Bg Atwood MD [address] [place] [phone] [address] Referral ID Status Reason Start Date Expiration Date Visits Requested Visits Authorized [id number] New Request Specialty Services Required 06/16/2017 1 1 Question Answer I certify that this patient is under my care and that I, or another Medicare allowed practitioner (DO CHAMP, PACHECO) working with me, had a uxgi-oi-puwy encounter with this patient on this date: 06/16/2017 I further certify that the sqtd-cd-lmag encounter was in whole or in part [...] ambulation Nursing skilled care requested: Nursing asessment assisted assessment needed related to this encounter: Response to new or changed medication Expected Discharge Date (Inpatient Only): 06/16/2017 Encounter Details Date Type Department Care Team (Late st Contact Info) Description 06/12/2017 17:51 EDT - 06/16/2017 16:57 EDT Hospital Encounter [facility] Cardiac/Telemetry Unit [address] [place] [address] Seng Rand MD PhD [address] [facility] Level [address] [place] [address] Bg Atwood MD 62 [facility] [address] [place] [phone] Tony Rosenberg MD [address] [address] Heart failure, unspecified HF chronicity, [...] unspecified HF chronicity, unspecified heart failure type ([facility]-CMS) 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 Heart failure ([facility]) 06/12/2017 Resolved Hospital Problems Diagnosis Date [...] orthopnea on a follow up exam at [facility]. He was transferred to [facility] due to concern for subacute constrictive [...] Component Value Units Date/Time Bacterial Culture/Smear, Fluid [[id number]] Collected: 06/13/17 0826 Lab Status: Preliminary result Specimen: FOSMIC from Pleural Fluid Updated: 06/15/17 0729 Gram Smear Result Polys present No bacteria seen Result No growth Bacterial Culture, Blood [[id number]] Collected: 06/12/172246 Lab Status: In process Specimen: Blood Updated: 06/12/172320 Bacterial Culture, Blood [[id number]] Collected: 06/12/172239 Lab Status: In process Specimen: [...] 05/01/2017 Discharge Follow Up Appointments Scheduled with [facility] Upcoming Appointments Aug 06, 2017 15:20 EDT Follow Up Return with Tony Rosenberg MD [facility] Cardiology [facility] (--) [address] [place] [id number] Appointments Outside of [facility] We Will Schedule Follow-up appointments and procedures Amb Consult/Follow Up Cardiology With Dr. Torres Reason for Request: f/u constrictive pericarditis Expected Discharge Date (Inpatient Only): 06/16/2017 Practice Site (External Referral Only): [facility] Authorizing Provider: Michael Pratt MD Amb Consult/Follow Up Primary Care Physician Reason for Request: f/u hospitalization for constrictive pericarditis Expected Discharge Date (Inpatient Only): 06/16/2017 Authorizing Provider: Bg Atwood MD Home Health Agency-Other I certify that this patient is under my care and that I, or another Medicare authorized non-physician practitioner (PA or AUXILIARY EQUIPMENT OPERATOR) or resident working with me, had a sdjp-hn-qkrd encounter with this patient on this date: 06/16/2017 I further certify that the vcjz-zt-htlm encounter was in whole or in part related to the reason thepatient needs home health care.: Yes The patient has had a kfgg-gv-fhme visit by me or one of my [...] and ambulation Skilled Care Requested: Nursing asessment assisted assessment needed related to this encounter: Response to new or changed medication Expected Discharge Date (Inpatient Only): 06/16/2017 Authorizing Provider: Bg Atwood MD Additional Information: Please follow up at [facility] with Dr. Tony Rosenberg on August 06, 2017 at 3:20 pm. If you have questions please call [phone]. Please follow up with your primary care physician, Katia Mccallum, on June 17, 2017 at 10:45 am. Ifyou have any questions please call [phone]. Studies We Will Schedule Appointments We Recommend but have not been Scheduled None Michael Pratt MD 06/16/2017 15:18 I evaluated the patient and agree with the discharge summary as outlined above by Dr. Pratt. Mr. Farfan was feeling much better today. 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 BG ATWOOD MD Attending Steamtable Attendant [employer] [facility] documented in this encounter Discharge Instructions * Appointments* Desi Thomas - 06/16/2017 12:01 EDT Please follow up at [facility] with Dr. Tony Rosenberg on August 06, 2017 at 3:20 pm. If you have questions please call [phone]. Please follow up with your primary care physician, Katia Mccallum, on June 17, 2017 at 10:45 am. Ifyou have any questions please call [phone]. * Discharge Instr - Other Orders* Melida [...] Care Everywhere. * HEART FAILURE: AVOIDING TRIGGERS (MONTSERRATIAN) documented in this encounter Medications at Time [...] Services. D/C Summary was faxed to his Bromination Equipment Operator at Dr. Mccallum's office. Desi Villatoro RN #[id number] * Tej Casanova MD - 06/15/2017 0816 [...] daily with taper in near future - EXAMINATION SUPERVISOR torsemide 40mg daily Hypokalemia/Hypomagnesemia -replete as needed [...] attestation - Bg Atwood MD - 06/15/2017 3517 EDT I have seen and evaluated the patient. I agree with the assessment and plan as outlined above by Dr. Casanova. He seems to be doing better on the steroids. I encouraged ambulation. We will likely cancel the right heart catheterization for tomorrow. BG ATWOOD MD Attending Steamtable Attendant [employer] [facility] * Michael Pratt MD - 06/14/2017 0646 [...] daily with taper in near future - EXAMINATION SUPERVISOR torsemide 40mg daily Pleural Effusions: Associated with [...] not lie flat. BG ATWOOD MD Attending Steamtable Attendant [employer] [facility] * Michael Pratt MD - 06/13/2017 1351 [...] into our system or repeat echo - EXAMINATION SUPERVISOR torsemide 40mg daily - Medical management pending [...] appetite. Pt currently not in room (in recyclable products sorter). O/ wt-100.7 kg Prior wt-~108 kg(05/24/17) Ht-180.3 [...] to d/c. Magalis Berger RD, CD X/cover #[id number] * Ameena Teixeira - 06/13/2017 1155 EDT Initial Case Management/Social Work Assessment and Discharge Plan/Readmission Risk Assessment REASON FOR ADMISSION: Heart failure ([facility]) Patient understands reason for admission: Yes PATIENT CONTACT INFO VERIFIED: Yes PATIENT ADDRESS VERIFIED: Yes (David is staying with his son Mo temporarily in [place]. He did not know the address) LIVING [...] his sons have been driving him) CULTURAL, FAITH and/or LANGUAGE factors affecting health care/discharge planning: [...] device: None Community Services: Home health, [facility], [facility]-none of one time a week Will [...] AID - [address] - [place], [place] - [address] [facility] [address] [facility] - [place], [place] - [address] [address] Home Health: [facility] Other: Other (enter in comments) (he has a patient care specialist through [facility]) POST HOSPITAL TRANSITION PLAN: Likely Dc to his son's house with continuation of HH RN services. Hereports that he has only been drinking 1-2 beers/day. He denied any concern over his ETOH use. AMEENA TEIXEIRA 06/13/2017 11:59 For Ivelisse Rueda * Desi Villatoro, RN - 06/13/2017 0934 EDT 06/13: Received a call from Yessica Card at [facility]. She is the patient's Bromination Equipment Operator. I've faxed patient's H&P to her and will keep her up to date on patient's progress and projected d/c. Yessica Card, Bromination Equipment Operator P: [phone] ext [phone] F: [phone] Desi Villatoro RN [facility] #[id number] * Renetta Martini, TISH - 06/13/2017 1185 EDT Pt received from M5 to angio [...] Notes * Denilson Shannon MD - 06/12/2017 1793 EDT Cardiology Admitting H&P Admit Date: 06/12/2017 [...] follow up performed by Dr. Rosenberg in [place] (has now completed 14 days of ibuprofen). After seeing Dr. Rosenberg yesterday and having an echo performed, he was noted to have worsening dyspnea, orthopnea, and increasing pleural effusions. He denies chest pain, diaphoresis, arm/jaw pain, wheezing, nausea/vomiting, change in bowels, or change in urination. He notes an ongoing cough with worsening abdominal pain from coughing so frequently. He was transferred to [facility] for consideration of thoracentesis and medical management. [...] tomorrow (either bedside or IR guided) - EXAMINATION SUPERVISOR torsemide 40mg daily - NPO after midnight [...] - team attempted to obtain echo from [facility] however unable to do so until AM - if no other etiology found consider switching to colchicine + prednisone - blood cultures Denilson Shannon MD Emergency Medical Dispatcher Pager [phone] 06/12/2017 21:56 Associated attestation - Bg Atwood [...] thoracentesis as well. BG ATWOOD MD Attending Steamtable Attendant Railroad [facility] documented in this encounter Procedure Notes * Randy Ireland PA-C - 06/13/2017 0839 EDT IR Procedure Note Procedure: Requested U/S guided bilateral thoracentesis Date Performed: 06/13/2017 Radiologist/Chief Crna(s):MD Andrea /MINGO Ireland Sedation/Anesthesia: local Time Out: [...] without difficulty. Discharge home orders received. Action: [facility] called and report given. They are familiar with this pt. Tele and PIV removed. Pt dressed independently. Discharge paperwork reviewed with pt. Verbalizes good understanding. Response: awaiting ride for discharge home. Omyara Farley RN 06/16/2017 15:21 * Plan of [...] with patient.Informed pt that he will have [facility] on Friday. R: Pt verbalized understanding of his plan of care. * Plan of Care - Mila Mcallister RN - 06/14/2017 4628 EDT Problem: Daily Care Plan Goals Goal: [...] to room/call garza system. Admission database completed. steamtable attendant railroad applied. Plan of care reviewed to include [...] EDT) 06/29/2017 16:0 1 EDT Scan 2 Cna Caregiver PROCEDURE/MINOR VELAM GICAL ORDERABLES * IMPLANT RECORD - SCANNED (06/19/2017 14:15 EDT) 06/19/2017 14:1 5 EDT Scan 2 Cna Caregiver PROCEDURE/MINOR VELMA GICAL ORDERABLES * ECG REPORT - SCANNED (06/19/2017 14:15 EDT) 06/19/2017 14:1 5 EDT Scan 2 Cna Caregiver PROCEDURE/MINOR VELMA GICAL ORDERABLES * MAGNESIUM (06/16/2017 5:39 EDT) Magnesium 1.9 1.7 - 2.8 mg/dl 06/16/2017 6:48 EDT [facility] Blood specimen (specimen) BLOOD SPECIMEN / Unknown 06/16/2017 5:39 EDT 06/16/2017 6:15 EDT Michael Pratt MD CHEMISTRY & BLOOD GA S ORDERABLES [facility] [address] [place] [address] * (ABNORMAL) ELECTROLYTES (06/16/2017 5:39 EDT) Sodium 133(L) 136 - 145 mEq/L 06/16/2017 6:48 EDT [facility] Potassium 3.7 3.5 - 5.0 mEq/L 06/16/2017 6:48 T [facility] Chloride 90(L) 96 - 110 mEq/L 06/16/2017 6:48 T [facility] CO2 33(H) 22 - 32 mEq/L 06/16/2017 6:48 T [facility] Blood specimen (specimen) BLOOD SPECIMEN / Unknown 06/16/2017 5:39 EDT 06/16/2017 6:15 EDT Michael Pratt MD CHEMISTRY & BLOOD GA S ORDERABLES [facility] [address] [place] [address] * (ABNORMAL) HEMAGRAM (06/16/2017 5:39 EDT) WBC 10.81(H) 4.0 - 10.4 K/cmm 06/16/2017 6:28 [facility] RBC 3.83(L) 4.36 - 5.78 M/cmm 06/16/2017 6:28 [facility] Hemoglobin 12.4(L) 13.8 - 17.3 gm/dl 06/16/2017 6:28 [facility] HCT 35.6(L) 39.5 - 50.2 % 06/16/2017 6:28 [facility] MCV 93 81 - 95 fl 06/16/2017 6:28 [facility] MCH 32.4 27.6 - 33.0 pg 06/16/2017 6:28 [facility] MCHC 34.8 32.8 - 36.4 gm/dl 06/16/2017 6:28 [facility] RDW-CV 11.9 <14.2 % 06/16/2017 6:28 [facility] RDW-SD 40.8 <46.0 fl 06/16/2017 6:28 [facility] PLT 204 141 - 377 K/cmm 06/16/2017 6:28 [facility] MPV 12.4 9.5 - 12.7 fl 06/16/2017 6:28 EDT [facility] Blood specimen (specimen) BLOOD SPECIMEN / Unknown 06/16/2017 5:39 EDT 06/16/2017 6:15 EDT Michael Pratt MD HEMATOLOGY & PF4 ORD ERABLES Performing Organization Address City/[facility]/ZIP Co de Phone Number [facility] [address] [place] [address] * CREATININE (06/16/2017 5:39 EDT) Creatinine 0.67 0.66 - 1.25 mg/dl 06/16/2017 6:48 EDT [facility] GFR, Calculated 100 >60 ml/min/1.7 3m2 06/16/2017 6:48 EDT [facility] Comment: eGFR calculated using CKD-EPI equation for non Americans. Multiply eGFR by 1.16 for Americans. Blood specimen (specimen) BLOOD SPECIMEN / Unknown 06/16/2017 5:39 EDT 06/16/2017 6:15 EDT Michael Pratt MD CHEMISTRY & BLOOD GA S ORDERABLES Performing Organization Address City/[facility] Co de Phone Number [facility] [address] [place] [address] * MAGNESIUM (06/15/2017 5:31 EDT) Magnesium 1.7 1.7 - 2.8 mg/dl 06/15/2017 6:24 EDT [facility] Blood specimen (specimen) BLOOD SPECIMEN / Unknown 06/15/2017 5:31 EDT 06/15/2017 5:48 EDT Michael Pratt MD CHEMISTRY & BLOOD GA S ORDERABLES Performing Organization Address City/[facility]/ZIP Co de Phone Number [facility] [address] [place] [address] * (ABNORMAL) ELECTROLYTES (06/15/2017 5:31 EDT) Sodium 133(L) 136 - 145 mEq/L 06/15/2017 6:24 EDT [facility] Potassium 3.4(L) 3.5 - 5.0 mEq/L 06/15/2017 6:24 [facility] Chloride 90(L) 96 - 110 mEq/L 06/15/2017 6:24 T [facility] CO2 34(H) 22 - 32 mEq/L 06/15/2017 6:24 T [facility] Blood specimen (specimen) BLOOD SPECIMEN / Unknown 06/15/2017 5:31 EDT 06/15/2017 5:48 EDT Michael Pratt MD CHEMISTRY & BLOOD GA S ORDERABLES Performing Organization Address City/State/[facility] Co de Phone Number [facility] [address] [place] [address] * (ABNORMAL) HEMAGRAM (06/15/2017 5:31 EDT) Pathologist [facility] WBC 11.63(H) 4.0 - 10.4 K/cmm 06/15/2017 5:58 [facility] RBC 3.51(L) 4.36 - 5.78 M/cmm 06/15/2017 5:58 [facility] Hemoglobin 11.4(L) 13.8 - 17.3 gm/dl 06/15/2017 5:58 [facility] HCT 33.1(L) 39.5 - 50.2 % 06/15/2017 5:58 [facility] MCV 94 81 - 95 fl 06/15/2017 5:58 [facility] MCH 32.5 27.6 - 33.0 pg 06/15/2017 5:58 [facility] MCHC 34.4 32.8 - 36.4 gm/dl 06/15/2017 5:58 [facility] RDW-CV 12.0 <14.2 % 06/15/2017 5:58 [facility] RDW-SD 41.4 <46.0 fl 06/15/2017 5:58 [facility] PLT 240 141 - 377 K/cmm 06/15/2017 5:58 EDT [facility] MPV 11.1 9.5 - 12.7 fl 06/15/2017 5:58 EDT [facility] Blood specimen (specimen) BLOOD SPECIMEN / Unknown 06/15/2017 5:31 EDT 06/15/2017 5:48 EDT Michael Pratt MD HEMATOLOGY & PF4 ORD ERABLES [facility] [address] [place] [address] * (ABNORMAL) CREATININE (06/15/2017 5:31 EDT) Creatinine 0.65(L) 0.66 - 1.25 mg/dl 06/15/2017 6:24 EDT [facility] GFR, Calculated 101 >60 ml/min/1.7 3m2 06/15/2017 6:24 EDT [facility] Comment: eGFR calculated using CKD-EPI equation for non Americans. Multiply eGFR by 1.16 for Americans. Blood specimen (specimen) BLOOD SPECIMEN / Unknown 06/15/2017 5:31 EDT 06/15/2017 5:48 EDT Michael Pratt MD CHEMISTRY & BLOOD GA S ORDERABLES Performing Organization Address City/[facility] Co de Phone Number [facility] [address] [place] [address] * INPATIENT ADD-ON (06/14/2017 8:00 EDT) Tests to be added PLEASE ADD ON DIFFERENTIAL TO CBC 06/14/2017 7:59 EDT [facility] Number for problems M5 06/14/2017 8:01 T [facility] Accession number [id number] 06/14/2017 8:01 EDT [facility] TOPOGRAPHY UNKNOWN / Unknown 06/14/2017 8:00 EDT 06/14/2017 8:01 EDT Catherine Walker MD HEMATOLOGY & PF4 ORD ERABLES [facility] [address] [place] [address] * (ABNORMAL) DIFFERENTIAL (06/14/2017 5:32 EDT) % Neutrophils 72.2 % 06/14/2017 8:47 EDT [facility] % Lymphocytes 14.9 % 06/14/2017 8:47 EDT [facility] % Monocytes 12.1 % 06/14/2017 8:47 EDT [facility] % Eosinophils 0.1 % 06/14/2017 8:47 T [facility] % Basophils 0.2 % 06/14/2017 8:47 EDT [facility] % Immature Grans 0.5 % 06/14/2017 8:47 EDT [facility] ABS Neutrophils 8.96(H) 2.20 - 8.85 K/cmm 06/14/2017 8:47 EDT [facility] ABS Lymphs 1.85 1.09 - 3.30 K/cmm 06/14/2017 8:47 EDT [facility] ABS Monocytes 1.50(H) 0.1 - 0.8 K/cmm 06/14/2017 8:47 T [facility] ABS Eosinophils 0.01(L) 0.03 - 0.61 K/cmm 06/14/2017 8:47 T [facility] ABS Basophils 0.02 0.01 - 0.11 K/cmm 06/14/2017 8:47 EDT [facility] ABS Immature Grans 0.06 0 - 0.06 K/cmm 06/14/2017 8:47 T [facility] Type of Diff: Automated 06/14/2017 8:47 [facility] BLOOD SPECIMEN / Unknown 06/14/2017 5:32 EDT 06/14/2017 5:53 EDT Michael Pratt MD HEMATOLOGY & PF4 ORD ERABLES [facility] [address] [place] [address] * MAGNESIUM (06/14/2017 5:32 EDT) Magnesium 2.0 1.7 - 2.8 mg/dl 06/14/2017 6:25 EDT [facility] Blood specimen (specimen) BLOOD SPECIMEN / Unknown 06/14/2017 5:32 EDT 06/14/2017 5:53 EDT Michael Pratt MD CHEMISTRY & BLOOD GA S ORDERABLES Performing Organization Address [facility] Co de Phone Number [facility] [address] [place] [address] * (ABNORMAL) ELECTROLYTES (06/14/2017 5:32 EDT) Pathologist [facility] Sodium 133(L) 136 - 145 mEq/L 06/14/2017 6:25 EDT [facility] Potassium 3.6 3.5 - 5.0 mEq/L 06/14/2017 6:25 EDT [facility] Chloride 91(L) 96 - 110 mEq/L 06/14/2017 6:25 EDT [facility] CO2 31 22 - 32 mEq/L 06/14/2017 6:25 EDT [facility] Blood specimen (specimen) BLOOD SPECIMEN / Unknown 06/14/2017 5:32 EDT 06/14/2017 5:53 EDT Michael Pratt MD CHEMISTRY & BLOOD GA S ORDERABLES Performing Organization Address City/[facility]/ZIP Co de Phone Number [facility] [address] [place] [address] * (ABNORMAL) HEMAGRAM (06/14/2017 5:32 EDT) WBC 12.41(H) 4.0 - 10.4 K/cmm 06/14/2017 6:00 EDT [facility] RBC 3.64(L) 4.36 - 5.78 M/cmm 06/14/2017 6:00 EDT [facility] Hemoglobin 11.9(L) 13.8 - 17.3 gm/dl 06/14/2017 6:00 EDT [facility] HCT 33.8(L) 39.5 - 50.2 % 06/14/2017 6:00 EDT [facility] MCV 93 81 - 95 fl 06/14/2017 6:00 EDT [facility] MCH 32.7 27.6 - 33.0 pg 06/14/2017 6:00 EDT [facility] MCHC 35.2 32.8 - 36.4 gm/dl 06/14/2017 6:00 EDT [facility] RDW-CV 11.9 <14.2 % 06/14/2017 6:00 T [facility] RDW-SD 40.7 <46.0 fl 06/14/2017 6:00 EDT [facility] PLT 243 141 - 377 K/cmm 06/14/2017 6:00 T [facility] MPV 11.7 9.5 - 12.7 fl 06/14/2017 6:00 T [facility] Blood specimen (specimen) BLOOD SPECIMEN / Unknown 06/14/2017 5:32 EDT 06/14/2017 5:53 EDT Michael Pratt MD HEMATOLOGY & PF4 ORD ERABLES [facility] [address] [place] [address] * (ABNORMAL) CREATININE (06/14/2017 5:32 EDT) Creatinine 0.60(L) 0.66 - 1.25 mg/dl 06/14/2017 6:25 EDT [facility] GFR, Calculated 105 >60 ml/min/1.7 3m2 06/14/2017 6:25 EDT [facility] Comment: eGFR calculated using CKD-EPI equation for non Americans. Multiply eGFR by 1.16 for Americans. Blood specimen (specimen) BLOOD SPECIMEN / Unknown 06/14/2017 5:32 EDT 06/14/2017 5:53 EDT Michael Pratt MD CHEMISTRY & BLOOD GA S ORDERABLES Performing Organization Address City/[facility]/ZIP Co de Phone Number [facility] [address] [place] [address] * INPATIENT ADD-ON (06/13/2017 15:00 EDT) Tests to be added PLEASE ADD ON HEMATOCRIT TO PLEURAL FLUID OBTAINED TODAY (06/13). THANK YOU 06/13/2017 14:56 EDT [facility] Number for problems [id number] 06/13/2017 15:05 EDT [facility] Accession number [id number] 06/13/2017 15:15 EDT [facility] Comment:Corrected on 06/13 A T 1515: Previously reported as [id number] TOPOGRAPHY UNKNOWN / Unknown 06/13/2017 15:00 EDT 06/13/2017 15:02 EDT Catherine Walker MD HEMATOLOGY & PF4 ORD ERABLES Performing Organization Address [facility]/ZIP Co de Phone Number [facility] [address] [place] [id number] * INPATIENT ADD-ON (06/13/2017 15:00 EDT) Tests to be added TOTAL PROTEIN,LD H 06/13/2017 14:55 EDT [facility] Number for problems [id number] 06/13/2017 15:01 EDT [facility] Accession number [id number] 06/13/2017 15:02 EDT [facility] Comment:Corrected on 06/13 A T 1502: Previously reported as [id number] TOPOGRAPHY UNKNOWN / Unknown 06/13/2017 15:00 EDT 06/13/2017 15:01 EDT Catherine Walker MD HEMATOLOGY & PF4 ORD ERABLES Performing Organization Address City/[facility]/ZIP Co de Phone Number [facility] [address] [place] [address] * CT CHEST (PE) PROTOCOL W CONTRAST [...] the bilateral lower extremities. Rahat Aviles MD [facility] US ORDERABLES * IR THORACENTESIS (06/13/2017 8:45 [...] y Fld <3.0 % 06/13/2017 16:01 EDT [facility] PLEURAL FLUID SPECIMEN / Unknown 06/13/2017 8:26 EDT 06/13/2017 8:49 EDT Michael Pratt MD GEN LAB UNIT COLLECT ORDERABLES Performing Organization Address City/[facility] Co de Phone Number [facility] [address] [place] [address] * FLUID DIFFERENTIAL (06/13/2017 8:26 EDT) Neutrophils, Fluid 33 % 06/13/2017 12:15 EDT [facility] Lymphocytes, Fluid 50 % 06/13/2017 12:15 EDT [facility] [place]/Macro, Fluid 12 % 06/13/2017 12:15 EDT [facility] Mesothelial 5 % 06/13/2017 12:15 T [facility] Fluid Comment Rev'd by Pathologist 06/13/2017 12:15 EDT [facility] PLEURAL FLUID SPECIMEN / Unknown 06/13/2017 8:26 EDT 06/13/2017 8:49 EDT Michael Pratt MD GEN LAB UNIT COLLECT ORDERABLES Performing Organization Address City/[facility]/ZIP Co de Phone Number [facility] [address] [place] [address] * PH, PLEURAL FLUID (06/13/2017 8:26 EDT) Pleural Fluid pH 7.42 06/14/19 18 9:12 EDT [facility] Comment: Reference range: Pleural fluid Exudate: 7.30-7.45 Transudate: 7.40-7.55 A pleural fluid pH <7.30 is generally associated with a complicated parapneumonic effusion, empyema, connective tissue disease of the pleura or malignant effusion. PLEURAL FLUID SPECIMEN / Unknown 06/13/2017 8:26 EDT 06/13/2017 9:00 EDT Michael Pratt MD GEN LAB UNIT COLLECT ORDERABLES [facility] [address] [place] [address] * BACTERIAL CULTURE/SMEAR, FLUID (06/13/2017 8:26 EDT) Gram Smear Result Polys present 06/13/2017 10:07 EDT [facility] Gram Smear Result No bacteria seen 06/13/2017 10:07 EDT [facility] Result No growth 06/15/2017 7:29 EDT [facility] FOSMIC PLEURAL FLUID SPECIMEN / Unknown 06/13/2017 8:26 EDT 06/13/2017 9:19 EDT Comment:Left Michael Pratt MD MICROBIOLOGY - GENER AL ORDERABLES Performing Organization Address City/[facility]/ZIP Co de Phone Number [facility] [address] [place] [address] * FLUID CELL COUNT (06/13/2017 8:26 EDT) RBC, Fluid 44,000 /cmm 06/13/2017 10:31 EDT [facility] Nucleated Cells 11,202 /cmm 06/13/2017 10:31 EDT [facility] Fluid Comment MODERATELY BLOODY, MODERATELY CLOUDY 06/13/2017 10:31 EDT [facility] Body fluid specimen (specimen) PLEURAL FLUID SPECIMEN / Unknown 06/13/2017 8:26 EDT 06/13/2017 8:49 EDT Michael Pratt MD GEN LAB UNIT COLLECT ORDERABLES Performing Organization Address City/[facility]/ZIP Co de Phone Number [facility] [address] [place] [address] * TOTAL PROTEIN, FLUID (06/13/2017 8:26 EDT) Protein, Fluid 5.2 g/dl 06/13/2017 10:18 EDT [facility] Comment: Reference Range: Pleural fluid specimen (specimen) Exudate > 3.0 g/dl Pleural fluid specimen (specimen) Transudate <3.0 g/dl Peritoneal fluid sample (specimen) Serum ascites to albumin gradient (SAGG) superior to total protein content in differentiating causes of effusion. Pleural fluid specimen (specimen) [facility] PLEURAL FLUID SPECIMEN / Unknown 06/13/2017 8:26 EDT 06/13/2017 8:51 EDT Michael Pratt MD GEN LAB UNIT COLLECT ORDERABLES Performing Organization Address [facility] Co de Phone Number [facility] [address] [place] [address] * LDH, FLUID (06/13/2017 8:26 EDT) LDH, Fluid 654 U/L 06/13/2017 10:18 EDT [facility] Comment: Pleural fluid specimen (specimen) Reference Range: Suggestive of exudate if fluid cholesterol is > 45 mg/dl or fluid LDH is greater than 0.45 times the upper limit of normal serum LDH levels. Peritoneal fluid sample (specimen) No reference range available Pleural fluid specimen (specimen) [facility] PLEURAL FLUID SPECIMEN / Unknown 06/13/2017 8:26 EDT 06/13/2017 8:51 EDT Michael Pratt MD GEN LAB UNIT COLLECT ORDERABLES Performing Organization Address City/[facility]/ZIP Co de Phone Number [facility] [address] [place] [address] * GLUCOSE, FLUID (06/13/2017 8:26 EDT) Glucose, Fluid 88 mg/dl 06/13/2017 10:18 EDT [facility] Comment: Reference Range: Pleural fluid specimen (specimen) Low glucose is accepted as <60 mg/dl or pleural fluid to serum glucose ratio of <0.5. Peritoneal fluid sample (specimen) Low glucose is generally accepted as <50 mg/dl. Pleural fluid specimen (specimen) [facility] PLEURAL FLUID SPECIMEN / Unknown 06/13/2017 8:26 EDT 06/13/2017 8:51 EDT Michael Pratt MD GEN LAB UNIT COLLECT ORDERABLES Performing Organization Address City/[facility]/ZIP Co de Phone Number [facility] [address] [place] [address] * CREATININE, FLUID (06/13/2017 8:26 EDT) Creatinine, Fluid 0.57 mg/dl 06/13/2017 10:18 EDT [facility] Comment: Reference Range: Pleural fluid specimen (specimen) No reference range available Peritoneal fluid sample (specimen) No reference range available Drain device specimen (specimen) No reference range available Pleural fluid specimen (specimen) [facility] PLEURAL FLUID SPECIMEN / Unknown 06/13/2017 8:26 EDT 06/13/2017 8:51 EDT Michael Pratt MD GEN LAB UNIT COLLECT ORDERABLES Performing Organization Address City/[facility]/ZIP Co de Phone Number [facility] [address] [place] [address] * PROTEIN, TOTAL (06/13/2017 6:08 EDT) Total Protein 7.2 6.3 - 8.2 g/dl 06/13/2017 15:23 EDT [facility] BLOOD SPECIMEN / Unknown 06/13/2017 6:08 EDT 06/13/2017 6:38 EDT Michael Pratt MD CHEMISTRY & BLOOD GA S ORDERABLES Performing Organization Address [facility]/ZIP Co de Phone Number [facility] [address] [place] [address] * LDH (06/13/2017 6:08 EDT) LDH 428 313 - 618 U/L 06/13/2017 15:23 EDT [facility] BLOOD SPECIMEN / Unknown 06/13/2017 6:08 EDT 06/13/2017 6:38 EDT Michael Pratt MD CHEMISTRY & BLOOD GA S ORDERABLES [facility] [address] [place] [address] * (ABNORMAL) MAGNESIUM (06/13/2017 6:08 EDT) Magnesium 1.4(L) 1.7 - 2.8 mg/dl 06/13/2017 7:07 EDT [facility] Blood specimen (specimen) BLOOD SPECIMEN / Unknown 06/13/2017 6:08 EDT 06/13/2017 6:38 EDT Michael Pratt MD CHEMISTRY & BLOOD GA S ORDERABLES Performing Organization Address [facility] Co de Phone Number [facility] [address] [place] [address] * (ABNORMAL) ELECTROLYTES (06/13/2017 6:08 EDT) Sodium 132(L) 136 - 145 mEq/L 06/13/2017 7:07 EDT [facility] Potassium 3.6 3.5 - 5.0 mEq/L 06/13/2017 7:07 EDT [facility] Chloride 91(L) 96 - 110 mEq/L 06/13/2017 7:07 EDT [facility] CO2 29 22 - 32 mEq/L 06/13/2017 7:07 EDT [facility] Blood specimen (specimen) BLOOD SPECIMEN / Unknown 06/13/2017 6:08 EDT 06/13/2017 6:38 EDT Michael Pratt MD CHEMISTRY & BLOOD GA S ORDERABLES Performing Organization Address [facility]/ZIP Co de Phone Number [facility] [address] [place] [address] * (ABNORMAL) HEMAGRAM (06/13/2017 6:08 EDT) WBC 9.97 4.0 - 10.4 K/cmm 06/13/2017 6:52 [facility] RBC 3.76(L) 4.36 - 5.78 M/cmm 06/13/2017 6:52 [facility] Hemoglobin 12.2(L) 13.8 - 17.3 gm/dl 06/13/2017 6:52 [facility] HCT 34.9(L) 39.5 - 50.2 % 06/13/2017 6:52 [facility] MCV 93 81 - 95 fl 06/13/2017 6:52 [facility] MCH 32.4 27.6 - 33.0 pg 06/13/2017 6:52 [facility] MCHC 35.0 32.8 - 36.4 gm/dl 06/13/2017 6:52 [facility] RDW-CV 11.8 <14.2 % 06/13/2017 6:52 [facility] RDW-SD 40.4 <46.0 fl 06/13/2017 6:52 [facility] PLT 223 141 - 377 K/cmm 06/13/2017 6:52 [facility] MPV 11.9 9.5 - 12.7 fl 06/13/2017 6:52 [facility] Blood specimen (specimen) BLOOD SPECIMEN / Unknown 06/13/2017 6:08 EDT 06/13/2017 6:38 EDT Michael Pratt MD HEMATOLOGY & PF4 ORD ERABLES [facility] [address] [place] [address] * (ABNORMAL) CREATININE (06/13/2017 6:08 EDT) Creatinine 0.58(L) 0.66 - 1.25 mg/dl 06/13/2017 7:07 [facility] GFR, Calculated 106 >60 ml/min/1.7 3m2 06/13/2017 7:07 [facility] Comment: eGFR calculated using CKD-EPI equation for non Americans. Multiply eGFR by 1.16 for Americans. Blood specimen (specimen) BLOOD SPECIMEN / Unknown 06/13/2017 6:08 EDT 06/13/2017 6:38 EDT Michael rPatt MD CHEMISTRY & BLOOD GA S ORDERABLES Performing Organization Address [facility] de Phone Number [facility] [address] [place] [address] * (ABNORMAL) PROTIME (06/13/2017 6:08 EDT) Pro Time 14.0(H) 10.3 - 13.4 secs 06/13/2017 7:00 EDT [facility] Comment:NOTE NEW REFERENCE Vern FUNG OF APR 03 2017 I.N.R. 1.2(H) 0.9 - 1.1 Ratio 06/13/2017 7:00 EDT [facility] Comment: Moderate Intensity Coumadin INR = 2.0-3.0 Adjustments in anticoagulant therapy dose should be based upon the INR and NOT the Pro Time. Blood specimen (specimen) BLOOD SPECIMEN / Unknown 06/13/2017 6:08 EDT 06/13/2017 6:38 EDT Michael Pratt MD HEMATOLOGY & PF4 ORD ERABLES Performing Organization Address [facility] de Phone Number [facility] [address] [place] [address] * BACTERIAL CULTURE, BLOOD (06/12/2017 22:47 EDT) Result No growth 06/17/2017 7:12 EDT [facility] Blood specimen (specimen) BLOOD SPECIMEN / Unknown 06/12/2017 22:47 EDT 06/12/2017 23:20 EDT Comment:Left~Antecubital Denilson Shannon MD MICROBIOLOGY - GENE RAL ORDERABLES Performing Organization Address [facility] Co de Phone Number [facility] [address] [place] [address] * (ABNORMAL) D-DIMER (06/12/2017 22:40 EDT) D-Dimer 724(H) <230 ng/mL 06/12/2017 23:14 EDT [facility] Comment: CUTOFF VALUE FOR THE EXCLUSION OF DVT and PE: 230 ng/mL D-dimer units Any use of the age-adjusted cutoff value is a post-analytic modification of this FDA-approved test and is considered off-label use of the test result. [facility] laboratory does not have literature to support the validity of an age-adjusted cutoff for our specific assay. Blood specimen (specimen) BLOOD SPECIMEN / Unknown 06/12/2017 22:40 EDT 06/12/2017 22:57 EDT Rahat Aviles MD HEMATOLOGY & PF4 OR DERABLES Performing Organization Address City/[facility]/ZIP Co de Phone Number [facility] [address] [place] [address] * BACTERIAL CULTURE, BLOOD (06/12/2017 22:40 EDT) Result No growth 06/17/2017 7:12 EDT [facility] Blood specimen (specimen) BLOOD SPECIMEN / Unknown 06/12/2017 22:40 EDT 06/12/2017 23:20 EDT Comment:Right~Antecubital Denilson Shannon MD MICROBIOLOGY - GENE RAL ORDERABLES [facility] [address] [place] [address] * INPATIENT ADD-ON (06/12/2017 21:30 EDT) Tests to be added NT PRO BNP 06/12/2017 21:28 EDT [facility] Number for problems Not Given 06/12/2017 21:31 EDT [facility] Accession number [id number] 06/12/2017 21:31 EDT [facility] TOPOGRAPHY UNKNOWN / Unknown 06/12/2017 21:30 EDT 06/12/2017 21:31 EDT Denilson Shannon MD HEMATOLOGY & PF4 OR DERABLES [facility] [address] [place] [address] * CHEST PA AND LATERAL (06/12/2017 20:56 [...] added HIGH SENSITIVITY CRP 06/12/2017 19:17 EDT [facility] Number for problems [id number] 06/12/2017 19:24 EDT [facility] Accession number [id number] 06/12/2017 19:24 EDT [facility] TOPOGRAPHY UNKNOWN / Unknown 06/12/2017 19:20 EDT 06/12/2017 19:21 EDT Michael Pratt MD HEMATOLOGY & PF4 ORD ERABLES Performing Organization Address [facility] Co de Phone Number [facility] [address] [place] [address] * (ABNORMAL) NT PRO BNP (06/12/2017 18:37 EDT) [facility] NT Pro BNP 1,380(H) <300 pg/ml 06/12/2017 22:19 EDT [facility] Comment: Reference Range: NT-proBNP values [...] GA S ORDERABLES Performing Organization Address [facility]/ZIP Co de Phone Number [facility] [address] [place] [address] * HIGH SENSITIVITY C-REACTIVE PROTEIN (CARDIOVASCULAR DISEASE) (06/12/2017 18:37 EDT) [facility] High Sensitivity CRP 83.3 mg/L 06/13/2017 10:08 EDT [facility] Comment: Reference Range: <1.0 mg/L Low risk 1.0-3.0 mg/L Average risk >3.0 mg/L High risk >10.0 mg/L Acute inflammation BLOOD SPECIMEN / Unknown 06/12/2017 18:37 EDT 06/12/2017 18:58 EDT Catherine Walker MD CHEMISTRY & BLOOD GA S ORDERABLES Performing Organization Address City/[facility]/ZIP Co de Phone Number [facility] [address] [place] [address] * TROPONIN I (06/12/2017 18:37 EDT) Troponin I (ng/mL) <0.034 <0.034 ng/ml 06/12/2017 19:49 EDT [facility] Blood specimen (specimen) BLOOD SPECIMEN / Unknown 06/12/2017 18:37 EDT 06/12/2017 18:58 EDT Catherine Walker MD CHEMISTRY & BLOOD GA S ORDERABLES Performing Organization Address City/[facility] Co de Phone Number [facility] [address] [place] [address] * (ABNORMAL) HEMAGRAM (06/12/2017 18:37 EDT) WBC 17.10(H) 4.0 - 10.4 K/cmm 06/12/2017 19:04 [facility] RBC 3.70(L) 4.36 - 5.78 M/cmm 06/12/2017 19:04 [facility] Hemoglobin 12.2(L) 13.8 - 17.3 gm/dl 06/12/2017 19:04 [facility] HCT 34.1(L) 39.5 - 50.2 % 06/12/2017 19:04 [facility] MCV 92 81 - 95 fl 06/12/2017 19:04 [facility] MCH 33.0 27.6 - 33.0 pg 06/12/2017 19:04 [facility] MCHC 35.8 32.8 - 36.4 gm/dl 06/12/2017 19:04 [facility] RDW-CV 11.6 <14.2 % 06/12/2017 19:04 EDT [facility] RDW-SD 39.4 <46.0 fl 06/12/2017 19:04 EDT [facility] PLT 206 141 - 377 K/cmm 06/12/2017 19:04 EDT [facility] MPV 12.3 9.5 - 12.7 fl 06/12/2017 19:04 EDT [facility] Blood specimen (specimen) BLOOD SPECIMEN / Unknown 06/12/2017 18:37 EDT 06/12/2017 18:58 EDT Catherine Walker MD HEMATOLOGY & PF4 ORD ERABLES Performing Organization Address City/[facility]/ZIP Co de Phone Number [facility] [address] [place] [address] * BUN (06/12/2017 18:37 EDT) BUN 10 10 - 26 mg/dl 06/12/2017 19:34 EDT [facility] Blood specimen (specimen) BLOOD SPECIMEN / Unknown 06/12/2017 18:37 EDT 06/12/2017 18:58 EDT Catherine Walker MD CHEMISTRY & BLOOD GA S ORDERABLES Performing Organization Address [facility] Co de Phone Number [facility] [address] [place] [address] * (ABNORMAL) ELECTROLYTES (06/12/2017 18:37 EDT) Sodium 129(L) 136 - 145 mEq/L 06/12/2017 19:34 EDT [facility] Potassium 3.4(L) 3.5 - 5.0 mEq/L 06/12/2017 19:34 T [facility] Chloride 91(L) 96 - 110 mEq/L 06/12/2017 19:34 T [facility] CO2 27 22 - 32 mEq/L 06/12/2017 19:34 EDT [facility] Blood specimen (specimen) BLOOD SPECIMEN / Unknown 06/12/2017 18:37 EDT 06/12/2017 18:58 EDT Catherine Walker MD CHEMISTRY & BLOOD GA S ORDERABLES Performing Organization Address [facility] de Phone Number [facility] [address] [place] [address] * (ABNORMAL) CREATININE (06/12/2017 18:37 EDT) Creatinine 0.54(L) 0.66 - 1.25 mg/dl 06/12/2017 19:34 EDT [facility] GFR, Calculated 109 >60 ml/min/1.7 3m2 06/12/2017 19:34 EDT [facility] Comment: eGFR calculated using CKD-EPI equation for non Americans. Multiply eGFR by 1.16 for Americans. Blood specimen (specimen) BLOOD SPECIMEN / Unknown 06/12/2017 18:37 EDT 06/12/2017 18:58 EDT Catherine Walker MD CHEMISTRY & BLOOD GA S ORDERABLES Performing Organization Address [facility] de Phone Number [facility] [address] [place] [address] * EKG 12-LEAD (06/12/2017 18:27 EDT) 06/12/2017 18:2 7 EDT Narrative [facility] - 06/29/2017 15:57 EDT ? [facility] ? Test Date: ?2017-06-12 Pat Name: ? DAVID FARFAN ?Department: ?? Subha Chao ? Room: ? ME505 Gender: ? Male ? Management Rep: ?? [id number] : ?1950 ? Requested By: GISELA Dunn Order Number: [id number] ? Reading MD: ?? SENG PERSON SA MD ? Measurements Intervals ?[place] ? Rate: ? 120 ?P: ?165 [place]: ? 235 ?QRS: ?-22 QRSD: ? 176 [...] Seng Brody Sa, MD - 06/29/2017 [facility] Test Date: 2017-06-12 Pat Name: DAVID FARFAN Department: [place] [address] [place] [facility] Gender: Male Management Rep: [id number] : 1950 Requested By: GISELA Dunn Order Number: [id number] Reading MD: SENG ROBLEDO Measurements Intervals [place] Rate: 120 P: 165 VT: 235 QRS: -22 QRSD: 176 T: 171 [...] Catherine Walker MD CARDIAC ECG ORDERABL ES [facility] documented in this encounter Visit Diagnoses [...] 1 06/12/2017 MEASURE WEIGHT 1 06/12/2017 NOTIFY HOST/HOSTESS HEAD 1 06/12/2017 VTE PHARMACOLOGIC PROPHYLAXI S CURRENTLY [...] 06/01 documented in this encounter Care Teams Lan Administrator Relationship Specialty Start Date End Date Katia Stone, MINGO [address] [place] [id number] PCP - General 05/02/17 documented as of this encounter
--- OUTSIDE RECORDS SUMMARY | 2023-12-15 14:25 | XMS_ITS | Encounter Summary ---
Author Organization [facility] Address [address] [place] [address] Care Team Providers Care Electronic Semiconductor Processor Name Role Phone Katia Stone PA-C Primary Care Provider +1- [phone] Encounter Details Date Type Department Care Team [...] filedocumented in this encounter Care Teams Electronic Semiconductor Processor Relationship Specialty Start Date End Date Katia Stone, BELLAC [address] [place] [phone] PCP - General 05/02/17 documented as of this encounter
--- OUTSIDE RECORDS SUMMARY | 2023-12-15 14:25 | XMS_ITS | Encounter Summary ---
Author Organization [facility] Address [address] [place] [address] Care Team Providers Care Oncologist Name Role Phone Katia Stone PA-C Primary Care Provider +1- [phone] Reason for Visit * Reason Onset Date Comments Medication Questions 07/16/2017 Encounter Details Date Type Department Care Team (Late st Contact Info) Description 07/16/2017 Telephone [facility] Cardiology - [place] [address] Caitie Atwood, TAIWO [address] [facility] [address] [place] [address] Medication Questions Social History Tobacco [...] be addressed when he FU with Dr. Rosenbreg on August 06. Yessica expressed understanding and [...] on filedocumented in this encounter Care Teams Oncologist Relationship Specialty Start Date End Date Katia Stone, MINGO [address] [place] [phone] PCP - General 05/02/17 documented as of this encounter
--- OUTSIDE RECORDS SUMMARY | 2023-12-15 14:25 | XMS_ITS | Encounter Summary ---
Author Organization [facility] Address [address] [place] [address] Care Team Providers Care Motor Vehicle Or Caravan Salesperson Name Role Phone Katia Stone PA-C Primary Care Provider +1- [phone] Reason for Visit * Reason Onset Date Comments Follow-up 12/23/2019 TE 11/02 Encounter Details Date Type Department Care Team (Late st Contact Info) Description 12/23/2019 Telephone [facility] Cardiology - [address] [place], [place] [id number] Tony Rosenberg MD [address] [place] [address] [address] [place] [address] Follow-up (TE 11/02) Social History [...] filedocumented in this encounter Care Teams Motor Vehicle Or Caravan Salesperson Relationship Specialty Start Date End Date Katia Stone, PABijalC [address] [place] [phone] PCP - General 05/02/17 documented as of this encounter
--- OUTSIDE RECORDS SUMMARY | 2023-12-15 14:25 | XMS_ITS | Encounter Summary ---
Author Organization [facility] Address [address] [place] [address] Care Team Providers Care Hardware Engineer Name Role Phone Katia Stone PA-C Primary Care Provider +1- [phone] Reason for Visit * Reason Onset Date Comments Other 08/15/2017 Returning Call 08/15/2017 To Belinda Encounter Details Date Type Department Care Team (Late st Contact Info) Description 08/15/2017 Telephone [facility] Cardiology - [address] [place], [place] [id number] Belinda Falk, TISH Other; Returning Call (To [...] - 08/15/2017 1243 EDT Spoke with Yessica (care director rn at PCP) in regards to patient Tim [...] Yessica patient needs to follow-up with primary lifestyle consultant in [place] Dr. Torres. Per Yessica patient has not seen Dr. Torres since before his first admission to [facility] on 04/30/17. Mentioned to Yessica, patient needs to be following up with PCP and primary lifestyle consultant. Yessica expressed understanding and will reach out to Dr. Torres's office at [facility]. Discharge summaries and last OV note faxed [...] by phone. Left detailed message, patient is [place] patient and no showed for visit with Dr. Rosenberg on 08/06. Instructed Yessica to reach out to [facility] where his primary lifestyle consultant is established on voice mail. documented in this encounter Plan of Treatment Not on file documented as of this encounter Visit Diagnoses Not on filedocumented in this encounter Care Teams Hardware Engineer Relationship Specialty Start Date End Date Katia Stone, MINGO [address] [place] [phone] PCP - General 05/02/17 documented as of this encounter
--- OUTSIDE RECORDS SUMMARY | 2023-12-15 14:25 | XMS_ITS | Encounter Summary ---
Author Organization [facility] Address [address] [place] [address] Care Team Providers Care Tobacco Drier Operator Name Role Phone Katia Stone PA-C Primary Care Provider +1- [phone] Reason for Visit * Reason Onset Date Comments Update 06/12/2017 on admission to [facility] Encounter Details Date Type Department Care Team (Late st Contact Info) Description 06/12/2017 Telephone [facility] Cardiology - [address] [place] [address] Tony Rosenberg MD [address] [place] [address] [address] [place] [address] Update (on admission to [facility]) Social History Tobacco Use Types [...] EDT The pt has been admitted to [facility] * Telephone Encounter - Belinda Falk [...] Reason for Call: Update (on admission to [facility]) Summary/Symptoms: Yessica would like to speak to the nurse regarding this patient being admitted to [facility] today at Dr. Guevara request Andra Gonzáles 06/12/2017 9:24 documented in this encounter Plan of Treatment Not on file documented as of this encounter Visit Diagnoses Not on filedocumented in this encounter Care Teams Tobacco Drier Operator Relationship Specialty Start Date End Date Katia Stone, MINGO [address] [place] [id number] PCP - General 05/02/17 documented as of this encounter
--- OUTSIDE RECORDS SUMMARY | 2023-12-15 14:25 | XMS_ITS | Encounter Summary ---
Author Organization [facility] Address [address] [place] [address] Care Team Providers Care Service Order Taker Name Role Phone Katia Stone PA-C Primary Care Provider +1- [phone] Encounter Details Date Type Department Care Team (Late st Contact Info) Description 08/20/2018 Historical Results Only [facility] [address] [place], [place] [address] Katia Stone, MINGO [address] [place] [address] Social History Tobacco Use Types [...] Sodium 121(L) 136 - 145 08/20/2018 12:38 [facility] Potassium 4.7 3.5 - 5.1 08/20/2018 12:38 [facility] Chloride 87(L) 96 - 107 08/20/2018 12:38 [facility] CO2 Total 28.2 21 - 32 08/20/2018 12:38 [facility] Anion Gap 5.8 08/20/2018 12:38 [facility] BUN 7 7 - 25 08/20/2018 12:38 [facility] Creatinine 0.59(L) 0.7 - 1.30 08/20/2018 12:38 [facility] Estimated GFR >60 >60 08/20/2018 12:49 [facility] Comment: EGFR UNITS: mL/min/1.73 m 2 CKD-EPI Equation used to calculate. Glucose 88 FASTIN -99 08/20/2018 12:38 [facility] Calcium 8.6 8.5 - 10.5 08/20/2018 12:38 [facility] CALCIUM,CORRECTE D - PMC 9.0 8.5 - 10.5 08/20/2018 12:38 [facility] BILIRUBIN - PMC 0.60 0.00 - 1.00 08/20/2018 12:38 [facility] AST 41(H) 15 - 37 08/20/2018 12:38 [facility] ALT 47 12 - 78 08/20/2018 12:38 [facility] Alkaline Phosphatase 86 46 - 116 08/20/2018 12:38 EDT [facility] Total Protein 7.5 6.4 - 8.2 08/20/2018 12:38 [facility] Albumin 3.5 3.4 - 5.0 08/20/2018 12:38 [facility] GLOBULIN - PMC 4.0 08/20/2018 12:38 [facility] ALBUMIN/GLOBULIN RATIO - PMC 0.8 08/20/2018 12:38 [facility] 08/20/2018 11:4 8 EDT 08/20/2018 12:07 EDT Katia Stone PA-C CHEMISTRY & BLOOD GAS ORDERABLES [facility] documented in this encounter Visit Diagnoses Not on filedocumented in this encounter Care Teams Service Order Taker Relationship Specialty Start Date End Date Katia Stone PA-C [address] [place] [phone] PCP - General 05/02/17 documented as of this encounter
--- OUTSIDE RECORDS SUMMARY | 2023-12-15 14:25 | XMS_ITS | Encounter Summary ---
Author Organization [facility] Address [address] [place] [address] Care Team Providers Care Field Broomer Name Role Phone Katia Stone PA-C Primary Care Provider +1- [phone] Encounter Details Date Type Department Care Team (Late st Contact Info) Description 06/12/2018 Historical Results Only [facility] [address] [place], [place] [address] Katia Stone, MINGO [address] [place] [address] Social History Tobacco Use Types [...] Sodium 125(L) 136 - 145 06/12/2018 17:52 [facility] Potassium 5.0 3.5 - 5.1 06/12/2018 17:52 [facility] Chloride 89(L) 96 - 107 06/12/2018 17:52 [facility] CO2 Total 28.7 21 - 32 06/12/2018 17:52 [facility] Anion Gap 7.3 06/12/2018 17:52 [facility] BUN 8 7 - 25 06/12/2018 17:52 [facility] Creatinine 0.60(L) 0.7 - 1.30 06/12/2018 17:52 [facility] Estimated GFR >60 >60 06/12/2018 17:59 [facility] Comment: EGFR UNITS: mL/min/1.73 m 2 CKD-EPI Equation used to calculate. Glucose 84 70 - 180 06/12/2018 17:52 [facility] Calcium 8.2(L) 8.5 - 10.5 06/12/2018 17:52 [facility] CALCIUM,CORRECTE D - PMC 8.7 8.5 - 10.5 06/12/2018 17:52 [facility] BILIRUBIN - PMC 0.30 0.00 - 1.00 06/12/2018 17:52 [facility] AST 39(H) 15 - 37 06/12/2018 17:52 [facility] ALT 52 12 - 78 06/12/2018 17:52 [facility] Alkaline Phosphatase 93 46 - 116 06/12/2018 17:52 EDT [facility] Total Protein 7.1 6.4 - 8.2 06/12/2018 17:52 T [facility] Albumin 3.4 3.4 - 5.0 06/12/2018 17:52 T [facility] GLOBULIN - PMC 3.7 06/12/2018 17:52 T [facility] ALBUMIN/GLOBULIN RATIO - PMC 0.9 06/12/2018 17:52 T [facility] 06/12/2018 16:4 6 EDT 06/12/2018 16:47 EDT Katia Stone PA-C CHEMISTRY & BLOOD GAS ORDERABLES [facility] documented in this encounter Visit Diagnoses Not on filedocumented in this encounter Care Teams Field Broomer Relationship Specialty Start Date End Date Katia Stone PA-C [address] [place] [address] PCP - General 05/02/17 documented as of this encounter
--- OUTSIDE RECORDS SUMMARY | 2023-12-15 14:25 | XMS_ITS | Encounter Summary ---
Author Organization [facility] Address [address] [place] [address] Care Team Providers Care Pmo Manager Name Role Phone Katia Stone PA-C Primary Care Provider +1- [phone] Reason for Visit * Reason Onset Date Comments Coordination Of Care 11/12/2019 Encounter Details Date Type Department Care Team (Late st Contact Info) Description 11/12/2019 Telephone [facility] Cardiology - [place] [place] [address] Belinda Falk, TISH Coordination Of [...] RN - 11/12/2019 1036 EDT An from [employer] calling in to report that patient has had fallen 3 times yesterday. documented in this encounter Plan of Treatment Not on file documented as of this encounter Visit Diagnoses Not on filedocumented in this encounter Care Teams Pmo Manager Relationship Specialty Start Date End Date Katia Stone, BELLAC [address] [place] [phone] PCP - General 05/02/17 documented as of this encounter
--- OUTSIDE RECORDS SUMMARY | 2023-12-15 14:25 | XMS_ITS | Encounter Summary ---
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 RBC 3.65(L) 4.70 - 6.00 07/19/2018 18:47 [facility] Hemoglobin 12.5(L) 13.5 - 18.0 07/19/2018 18:47 [facility] HCT 34.2(L) 42.0 - 52.0 07/19/2018 18:47 [facility] MCV 93.7 78 - 100 07/19/2018 18:47 [facility] MCH 34.2(H) 27 - 31 07/19/2018 18:47 [facility] MCHC 36.5(H) 32 - 36 07/19/2018 18:47 [facility] RDW-CV - PMC 12.4 11.5 - 14.0 07/19/2018 18:47 [facility] PLATELET COUNT - PMC 158 150 - 450 07/19/2018 18:47 [facility] NEUTROPHILS % (AUTO) - PMC 63.5 42.0 - 75.0 07/19/2018 18:47 [facility] LYMPHOCYTES % (AUTO) - PMC 22.6 16.0 - 52.0 07/19/2018 18:47 [facility] MONOCYTES % (AUTO) - PMC 9.6 1.0 - 11.0 07/19/2018 18:47 [facility] EOSINOPHILS % (AUTO) - PMC 2.9 0.0 - 7.0 07/19/2018 18:47 [facility] BASOPHILS % (AUTO) - PMC 0.7 0.0 - 4.0 07/19/2018 18:47 [facility] NUCLEATED RBC % (AUTO) - PMC 0.0 <1 07/19/2018 18:47 [facility] NEUTROPHILS # (AUTO) - PMC 5.2 1.5 - 6.6 07/19/2018 18:47 [facility] LYMPHOCYTES # (AUTO) - PMC 1.8 1.0 - 3.5 07/19/2018 18:47 [facility] MONOCYTES # (AUTO) - PMC 0.8 <1.0 07/19/2018 18:47 [facility] EOSINOPHILS # (AUTO) - PMC 0.2 <0.7 07/19/2018 18:47 [facility] BASOPHILS # (AUTO) - PMC 0.1 <0.1 07/19/2018 18:47 [facility] NUCLEATED RBC # (AUTO) - PMC 0.00 <1 07/19/2018 18:47 [facility] 07/19/2018 18:3 0 EDT 07/19/2018 18:34 EDT Vick Limon MD PACKAGES & DNA PROBE ORDERABLES [facility] * (ABNORMAL) BASIC METABOLIC PANEL,RANDOM - PMC (07/19/2018 18:30 EDT) Sodium 120(L) 136 - 145 07/19/2018 18:52 [facility] Potassium 4.4 3.5 - 5.1 07/19/2018 18:52 [facility] Chloride 83(L) 96 - 107 07/19/2018 18:52 [facility] CO2 Total 24.6 21 - 32 07/19/2018 18:52 [facility] Anion Gap 13.4 07/19/2018 18:52 [facility] BUN 8 7 - 25 [facility]19/2018 [facility] Creatinine 0.67(L) 0.7 - 1.30 07/19/2018 18:52 [facility] Estimated GFR >60 >60 07/19/2018 19:01 [facility] Comment: EGFR UNITS: mL/min/1.73 m 2 CKD-EPI Equation used to calculate. Glucose 78 70 - 180 07/19/2018 18:52 [facility] Calcium 8.2(L) 8.5 - 10.5 07/19/2018 18:52 [facility] 07/19/2018 18:3 0 EDT 07/19/2018 18:34 EDT Vick Limon MD CHEMISTRY & BLOOD GA S ORDERABLES Performing Organization Address City/[facility]/ZIP Co de Phone Number [facility] * POCT GLUCOSE (NURSING) - PMC (07/19/2018 18:21 EDT) POC CAPILLARY GLUCOSE - [facility] 86 70 - 100 07/19/2018 18:23 EDT [facility] 07/19/2018 18:2 1 EDT 07/19/2018 18:23 EDT Vick Limon MD POINT OF CARE TEST O RDERABLES [facility] documented in this encounter Visit Diagnoses Not on filedocumented in this encounter Care Teams Hire Car Driver Relationship Specialty Start Date End Date Katia Stone, PABijalC [address] [place] [phone] PCP - General 05/02/17 documented as of this encounter
--- OUTSIDE RECORDS SUMMARY | 2023-12-15 14:26 | XMS_ITS | Encounter Summary ---
Author Organization [facility] Address [address] [place] [address] Care Team Providers Care Sporting Goods Sales Manager Name Role Phone Katia Stone PA-C Primary Care Provider [phone] Reason for Referral * Follow Up (3 - 10 Business Days) - New Request Specialty Diagnoses / Procedures Referred By Contac t Referred To Contact Diagnoses Hyponatremia Pericardial effusion Heart block Acute on chronic diastolic congestive heart failure (HCC-CMS) Acute pericarditis, unspecified type Vini Mathis MD [address] [place] [phone] Katia Stone PA-C [facility] [address] [place] [address] Referral ID Status Reason Start Date Expiration Date Visits Requested Visits Authorized [id number] New Request Continuity of Care 05/27/2017 1 1 Question Answer Reason for Request: post hosp f/u visit Reason for Visit * Reason Comments Chest Pain Patient arrives as [place] pan from [facility] for pleuritic chest pain and new diagnosis CHF after pacemaker placement at [facility] two weeks ago. Dyspnea with exertion, breath sounds course crackles. Alert and oriented. Encounter Details Date Type Department Care Team (Late st Contact Info) Description 05/20/2017 23:34 EDT - 05/27/2017 14:50 EDT Hospital Encounter [facility] Cardiac/Telemetry Unit [address] [place] [address] Laly Kim MD [address] [phone] Akash Reyes MD [address] [place] [phone] Andres Luis MD [address] [place] [phone] Tony Rosenberg MD [address] [place] [phone] Seng Brody Sa, MD [address] [place] [phone] Hyponatremia (Primary Dx); Pericardial effusion; Heart block; [...] Acute on chronic diastolic congestive heart failure ([facility]-HCC) 05/01/2017 05/27/2017 Hospital Course David Mera is [...] amlodipine and chlorthalidone. ?? He presented to [facility] ED 05/20 with orthopnea and cough, and CT chest showed pericardial effusion. He was transferred to [facility] ED for pericardiocentesis. In the ED he [...] Component Value Units Date/Time Respiratory Virus Detection [[id number]] Collected: 05/26/17 1157 Lab Status: Preliminary result Specimen: Nasopharynx Updated: 05/27/17 1425 Result No RSV, Influenza A, or Influenza B detected by PCR Result No Metapneumovirus detected by PCR. Result Delay in some virus(es) result(s), testing being repeated and/or confirmed. Anaerobe Culture/Smear (inc. aerobes), Fluid [[id number]] Collected: 05/23/17 0747 Lab Status: Preliminary result Specimen: FOSMIC from Pericardial Fluid Updated: 05/25/17 1146 Gram Smear Result Few Polys No bacteria seen Result No growth Fungus Culture/Smear, Other [[id number]] Collected: 05/23/17 0747 Lab Status: Preliminary result [...] Follow Up Appointments Scheduled with [facility] Upcoming Appointments Jun 04, 2017 16:00 EDT Post Hospital Visit with Tony Rosenberg MD [facility] Cardiology [facility] (--) [address] [facility] [address] Appointments Outside of [facility] We Will Schedule Follow-up appointments and procedures Amb Consult/Follow Up Primary Care Physician Reason for Request: post hosp f/u visit Authorizing Provider: Vini Mathis MD Additional Information: Cardiology follow up FriJune 04, 2017 at [address] Justin Rosenberg at the [facility]. You should be notified of appointment time. If you do not head by FriJune 01, please call [phone] to find out the time. Cardiology follow up on June 16, 2017 at 2:[address] Torres at the [facility] haspreviously scheduled. Clinic number [id number] Studies We Will Schedule Follow-up labs and [...] Vini Mathis MD Internal Medicine PGY-1 Pager: [phone] 05/27/2017 20:52 Associated attestation - Seng Brody Sa, MD - 05/30/2017 1206 EDT Attending Attestation: I saw and evaluated the patient 05/27. I discussed the case with the resident/BOX PRINTING MACHINE OPERATOR/fellow and agree with the findings and plan as documented above. Seng person Sa, MD Cardiac Electrophysiology documented in this encounter Discharge Instructions * Appointments* Coleen Yañez NP - 05/27/2017 10:25 EDT Cardiology follow up FriJune 04, 2017 at [address] Justin Rosenberg at the [facility]. You should be notified of appointment time. If you do not head by FriJune 01, please call [phone] to find out the time. Cardiology follow up on June 16, 2017 at 2:[address] Torres at the [facility] haspreviously scheduled. Clinic number [id number] * Discharge Instr - Other Orders* Melida [...] Care Everywhere. * HEART FAILURE: AVOIDING TRIGGERS (AUSTRIAN) documented in this encounter Medications at Time [...] knees MSK: Normal bulk and tone. 5/5 welding manager strength SKIN: No lesions, bruises, or [...] initially hypertensive, but now normo-hypotensive. - Holding SUPERVISOR TELEPHONE CLERKS lisinopril ?? Chronic diastolic heart failure: Volume [...] 05/26/17. I discussed the case with the resident/BOX PRINTING MACHINE OPERATOR/fellow and agree with the findings and plan [...] knees MSK: Normal bulk and tone. 5/5 welding manager strength SKIN: No lesions, bruises, or [...] initially hypertensive, but now normo-hypotensive. - Holding SUPERVISOR TELEPHONE CLERKS lisinopril ?? Chronic diastolic heart failure: currently [...] knees MSK: Normal bulk and tone. 5/5 welding manager strength SKIN: No lesions, bruises, or [...] initially hypertensive, but now normo-hypotensive. - Holding SUPERVISOR TELEPHONE CLERKS lisinopril ?? Chronic diastolic heart failure: currently [...] Landry M.D., PGY-1 Internal Medicine Resident Pager [phone] 05/24/2017 10:04 Attestation statement: Supervising Physician I [...] knees MSK: Normal bulk and tone. 5/5 welding manager strength SKIN: No lesions, bruises, or [...] initially hypertensive, but now normo-hypotensive. - Holding SUPERVISOR TELEPHONE CLERKS lisinopril ?? Chronic diastolic heart failure: currently [...] Landry M.D., PGY-1 Internal Medicine Resident Pager [phone] 05/23/2017 9:11 Attestation statement: Supervising Physician. I [...] knees MSK: Normal bulk and tone. 5/5 welding manager strength SKIN: No lesions, bruises, or [...] initially hypertensive, but now normo-hypotensive. - Holding SUPERVISOR TELEPHONE CLERKS lisinopril ?? Chronic diastolic heart failure: currently [...] Landry M.D., PGY-1 Internal Medicine Resident Pager [phone] 05/22/2017 8:50 Attestation statement: I saw and [...] Chart: Yes, previous copy on file @ [facility] DIRECTIVES FOR FINANCES: TRANSPORTATION: Transportation: Family CULTURAL, ADVENT and/or LANGUAGE factors affecting health care/discharge planning: [...] AID - [address] - [place], [place] - [address] [facility] [phone] [facility] ([facility]) - [facility] [place] - [address] [facility] [address] [facility] [address] Home Health: Other: POST HOSPITAL TRANSITION PLAN: Plan d/c to his son, Catarina, house in [place] Desi Villatoro RN 05/21/2017 13:12 * Desi Villatoro RN - 05/21/2017 0946 EDT 05/21: Met with patient. Dr. Rosenberg is at the bedside. Plan will be pericardiocentesis and reposition of pacer lead. I will follow up with patient later today. Desi Villatoro RN [id number] * Jayne Landry MD - 05/21/2017 0752 EDT Cardiology Progress note Service Date: 05/21/2017 [...] knees MSK: Normal bulk and tone. 5/5 welding manager strength SKIN: No lesions, bruises, or [...] will hold lisinopril for now. - Holding SUPERVISOR TELEPHONE CLERKS lisinopril ?? Chronic diastolic heart failure: currently volume overloaded. Needs diuresis after resolution of pericardial effusion. - Holding Lasix/chlorthalidone in setting of pericardial effusion - Strict I&O - 1.2 L fluid restriction as above - Daily weights - Daily BUN, Cr VTE Prophylaxis Held pending pericardiocentesis Discharge Plan Uncertain at this time Jayne Landry M.D., PGY-1 Internal Medicine Resident Pager [phone] 05/21/2017 8:01 * Ester Yanes MD - 05/21/2017 0667 EDT PATIENT CONSENT TO CARDIOVASCULAR CATHETERIZATION OR INTERVENTION: I, Ester Yanes MD, have explained the risks and benefits of cardiac catheterization and/or intervention to the patient (or responsible libertarian) and have answered the patient's (or responsible libertarian's) questions. To the best of my knowledge, the patient (or responsible libertarian) has been adequately informed. The patient (or responsible libertarian) has consented to the interventional cardiac procedure. As part of the consent we reviewed that, like surgical procedures, interventional procedures require aggressive short term support to determine the potential benefits of the procedures. For this reason, the patient (or responsible libertarian) has agreed to remain FULL CODE for a minimum of 48 hours aft er the procedure. Ester Yanes MD Ice Cream Scooper PGY-5 05/20/2017 23:30 documented in this encounter [...] smoker, 1-2 beers 1-2x/week, lives alone in [place] Allergies: Reviewed No Known Allergies Exam: General [...] will hold lisinopril for now. - Holding SUPERVISOR TELEPHONE CLERKS lisinopril Chronic diastolic heart failure: with some [...] outpatient, avoid thiazide diuretics Vladimir Crowe MD [facility] Transplant Respiratory Therapist Assistant Sheet Folder of Transplant Programs 05/25/2017 11:46 * Vladimir [...] the assessment and plan. Vladimir Crowe MD [facility] Transplant Respiratory Therapist Assistant Sheet Folder of Transplant Programs 05/24/2017 12:32 * Elliot [...] TIME. PT IN ER ROOM 8, ON APPLICATION HELPER, NIBP, AND SPO2, ASSESSMENT NOTED, * Tony Navarro - 05/20/2017 2247 EDT Blood drawn via saline lock per protocol, tiger tube(s) sent to lab per order. * Laly Kim MD - 05/20/2017 2224 EDT DOS: 05/20/2017 Chief Complaint Patient presents with ??? Chest Pain Patient arrives as transfer from [facility] for pleuritic chest pain and new diagnosis CHF after pacemaker placement at [facility] two weeks ago. Dyspnea with exertion, breath sounds course crackles. Alert and oriented. HPI HPI Comments: I, Deana Bingham, am scribing for Laly Kim, * while he/she is personallyperforming the service. Deana Bingham 05/20/2017 22:25 David Mera is a 66 y.o. male with a history of heart block AV third degree, HTN, acute on chronic CHF, who presents as a transfer from [facility] with pericardial effusion. Pt had pacemaker placed [...] appears to be a good tracing. Attending palliative care nurse not available for acute interpretation. Radiology orders: [...] for problems Not Given Final Accession number [id number] Final CREATININE, URINE RANDOM SODIUM, URINE RANDOM [...] bolus. Evaluated in the ED by the hearing aid specialist. ASSESSMENT AND PLAN Final diagnoses: Hyponatremia Pericardial effusion DISPOSITION: Admitted Discussed case with cardiology resident/fellow (). Not evaluated by admitting attending in ED. Admitted to telemetry for further evaluation and definitive management. Condition on admission: Serious.Pain level at time of admission: 0 (). PCP: Katia Mccallum [facility] Number of Diagnoses or Management Options [...] Scribe under the direction and presence ofLaly iKm, *. Laly Kim, *: I personally performed [...] Care - Sigrid Gordon RN - 05/25/2017 0524 EDT Problem: Daily Care [...] Care - Cici Tapia RN - 05/24/2017 3931 EDT Problem: Daily Care Plan Goals Goal: [...] SOB and pleuritic chest pain. Transferred from [facility]. Dx of peridcardial effusion, HTN, [...] on chronic diastolic congestive heart failure (CMS-HCC) ([facility]) Acute pericarditis, unspecified type Ordered: 05/27/2017 documented [...] 8:40 EDT) 06/02/2017 8:40 EDT Scan 2 Wind Tunnel Mechanic PROCEDURE/MINOR VELMA GICAL ORDERABLES * ECG REPORT - SCANNED (06/01/2017 12:46 EDT) 06/01/2017 12:4 6 EDT Scan 2 Wind Tunnel Mechanic PROCEDURE/MINOR VELMA GICAL ORDERABLES * ECG REPORT - SCANNED (05/30/2017 11:59 EDT) 05/30/2017 11:5 9 EDT Scan 2 Wind Tunnel Mechanic PROCEDURE/MINOR VELMA GICAL ORDERABLES * ECG REPORT - SCANNED (05/30/2017 11:17 EDT) 05/30/2017 11:1 7 EDT Scan 2 Wind Tunnel Mechanic PROCEDURE/MINOR VELMA GICAL ORDERABLES * ECG REPORT - SCANNED (05/30/2017 11:17 EDT) 05/30/2017 11:1 7 EDT Scan 2 Wind Tunnel Mechanic PROCEDURE/MINOR VLEMA GICAL ORDERABLES * ECG REPORT - SCANNED (05/28/2017 10:02 EDT) 05/28/2017 10:0 2 EDT Scan 2 Wind Tunnel Mechanic PROCEDURE/MINOR VELMA GICAL ORDERABLES * ECG REPORT - SCANNED (05/27/2017 13:22 EDT) 05/27/2017 13:2 2 EDT Scan 2 Wind Tunnel Mechanic PROCEDURE/MINOR VELMA GICAL ORDERABLES * EKG 12-LEAD (05/27/2017 7:37 EDT) 05/27/2017 7:37 EDT Narrative [facility] EKG - 06/01/2017 12:41 EDT ? [facility] ? Test Date: ?2017-05-27 Pat Name: ? DAVID MERA ?Department: ?? JAME Chao ? Room: ? MW531 Gender: ? M ?Tube Blower: ?? [id number] : ?1950 ? Requested By: PRADIP MONET Order Number: [id number] ? Martha OAKES: ?? PIERRE RUBIO MD ? Measurements Intervals ?Procious ? Rate: ? 69 ? P: ?23 ND: ? 175 ?QRS: ?-58 QRSD: ? 193 [...] MD - 06/01/2017 [facility] Test Date: 2017-05-27 Pat Name: DAVID HULLEY Department: [place] [address] Room: [facility] Gender: M Tube Blower: [id number] : 1950 Requested By: PRADIP MONET Order Number: [id number] Reading MD: PIERRE RUBIO MD Measurements Intervals Procious Rate: 69 P: 23 ND: 175 QRS: -58 QRSD: 193 T: 189 QT: 528 QTc: 568 Interpretive Statements SINUS RHYTHM WITH ATRIAL TRACKING and VENTRICULAR PACING Compared to ECG 05/26/2017 07:29:50 No significant changes I reviewed the tracing and have either agreed or edited the findings inthis report. Electronically Signed On 06-01-17 12:41:22 EDT by PIERRE YEBOAH. Maria Antonia Zimmerman MD CARDIAC ECG ORDERABL ES Performing Organization Address [facility] de Phone Number [facility] EKG * (ABNORMAL) ELECTROLYTES (05/27/2017 5:57 EDT) Sodium 129(L) 136 - 145 mEq/L 05/27/2017 6:41 EDT [facility] Potassium 3.9 3.5 - 5.0 mEq/L 05/27/2017 6:41 EDT [facility] Chloride 87(L) 96 - 110 mEq/L 05/27/2017 6:41 EDT [facility] CO2 33(H) 22 - 32 mEq/L 05/27/2017 6:41 EDT [facility] Blood specimen (specimen) BLOOD SPECIMEN / Unknown 05/27/2017 5:57 EDT 05/27/2017 6:14 EDT Jayne Pozo MD CHEMISTRY & BLOOD GA S ORDERABLES Performing Organization Address [facility] de Phone Number [facility] [address] [place] [address] * BUN (05/27/2017 5:57 EDT) BUN 13 10 - 26 mg/dl 05/27/2017 6:41 EDT [facility] Blood specimen (specimen) BLOOD SPECIMEN / Unknown 05/27/2017 5:57 EDT 05/27/2017 6:14 EDT Jayne Pozo MD CHEMISTRY & BLOOD GA S ORDERABLES Performing Organization Address [facility] de Phone Number [facility] [address] [place] [address] * MAGNESIUM (05/27/2017 5:57 EDT) Magnesium 1.9 1.7 - 2.8 mg/dl 05/27/2017 6:41 EDT [facility] Blood specimen (specimen) BLOOD SPECIMEN / Unknown 05/27/2017 5:57 EDT 05/27/2017 6:14 EDT Jayne Pozo MD CHEMISTRY & BLOOD GA S ORDERABLES Performing Organization Address [facility] Co de Phone Number [facility] [address] [place] [address] * (ABNORMAL) CREATININE (05/27/2017 5:57 EDT) Creatinine 0.63(L) 0.66 - 1.25 mg/dl 05/27/2017 6:41 EDT [facility] GFR, Calculated 103 >60 ml/min/1.7 3m2 05/27/2017 6:41 EDT [facility] Comment: eGFR calculated using CKD-EPI equation for non Americans. Multiply eGFR by 1.16 for Americans. Blood specimen (specimen) BLOOD SPECIMEN / Unknown 05/27/2017 5:57 EDT 05/27/2017 6:14 EDT Jayne Pozo MD CHEMISTRY & BLOOD GA S ORDERABLES Performing Organization Address [facility] Co de Phone Number [facility] [address] [place] [address] * (ABNORMAL) HEMAGRAM (05/27/2017 5:57 EDT) WBC 6.74 4.0 - 10.4 K/cmm 05/27/2017 6:28 [facility] RBC 3.43(L) 4.36 - 5.78 M/cmm 05/27/2017 6:28 [facility] Hemoglobin 11.3(L) 13.8 - 17.3 gm/dl 05/27/2017 6:28 [facility] HCT 32.2(L) 39.5 - 50.2 % 05/27/2017 6:28 [facility] MCV 94 81 - 95 fl 05/27/2017 6:28 [facility] MCH 32.9 27.6 - 33.0 pg 05/27/2017 6:28 [facility] MCHC 35.1 32.8 - 36.4 gm/dl 05/27/2017 6:28 [facility] RDW-CV 11.3 <14.2 % 05/27/2017 6:28 EDT [facility] RDW-SD 38.4 <46.0 fl 05/27/2017 6:28 EDT [facility] PLT 308 141 - 377 K/cmm 05/27/2017 6:28 EDT [facility] MPV 10.4 9.5 - 12.7 fl 05/27/2017 6:28 EDT [facility] Blood specimen (specimen) BLOOD SPECIMEN / Unknown 05/27/2017 5:57 EDT 05/27/2017 6:14 EDT Jayne Pozo MD HEMATOLOGY & PF4 ORD ERABLES Performing Organization Address [facility] Co de Phone Number [facility] [address] [place] [address] * (ABNORMAL) NT PRO BNP (05/26/2017 17:55 EDT) NT Pro BNP 2,710(H) <300 pg/ml 05/26/2017 18:55 EDT [facility] Comment: Slight hemolysis Results [...] BLO OD GAS ORDERABLES Performing Organization Address [facility] Co de Phone Number [facility] [address] [place] [address] * (ABNORMAL) ELECTROLYTES (05/26/2017 17:55 EDT) Sodium 129(L) 136 - 145 mEq/L 05/26/2017 18:44 EDT [facility] Comment:Slight hemolysis Potassium 4.0 3.5 - 5.0 mEq/L 05/26/2017 18:44 EDT [facility] Comment: Slight hemolysis Hemolysis may elevate potassium result. Chloride 84(L) 96 - 110 mEq/L 05/26/2017 18:44 EDT [facility] Comment:Slight hemolysis CO2 35(H) 22 - 32 mEq/L 05/26/2017 18:44 EDT [facility] Comment:Slight hemolysis Blood specimen (specimen) BLOOD SPECIMEN / Unknown 05/26/2017 17:55 EDT 05/26/2017 18:18 EDT Jayne Pozo MD CHEMISTRY & BLOOD GA S ORDERABLES Performing Organization Address [facility] Co de Phone Number [facility] [address] [place] [address] * INPATIENT ADD-ON (05/26/2017 15:20 EDT) Tests to be added BNP 05/26/2017 15:19 EDT [facility] Number for problems [id number] 05/26/2017 15:32 EDT [facility] Accession number CALLED M5 WITH INABILITY TO PERFORM ADD ON DUE TO NO SUITABLE SAMPLE [id number] 05/26/2017 15:32 EDT [facility] TOPOGRAPHY UNKNOWN / Unknown 05/26/2017 15:20 EDT 05/26/2017 15:31 EDT Vini Mathis MD HEMATOLOGY & PF4 OR DERABLES Performing Organization Address City/[facility] Co de Phone Number [facility] [address] [place] [address] * LEGIONELLA ANTIGEN DETECTION, URINE (05/26/2017 14:04 EDT) Result No Legionella pneumophila serogroup 1 antigen detected. 05/26/2017 15:30 EDT [facility] Specimen of unknown material (specimen) URINE / Unknown 05/26/2017 14:04 EDT 05/26/2017 14:42 EDT Comment:Clean catch specimen Сергей Damico MD MICROBIOLOGY - GENER AL ORDERABLES Performing Organization Address City/[facility]/ZIP Co de Phone Number [facility] [address] [place] [address] * STREPTOCOCCUS PNEUMONIAE ANTIGEN, URINE (05/26/2017 14:04 EDT) Result No Strep pneumoniae antigen detected. 05/26/2017 15:29 EDT [facility] Specimen of unknown material (specimen) URINE / Unknown 05/26/2017 14:04 EDT 05/26/2017 14:42 EDT Comment:Clean catch specimen Сергей Damico MD MICROBIOLOGY - GENER AL ORDERABLES Performing Organization Address [facility] Co de Phone Number [facility] [address] [place] [address] * ECG REPORT - SCANNED (05/26/2017 12:53 EDT) 05/26/2017 12:5 3 EDT Scan 2 Wind Tunnel Mechanic PROCEDURE/MINOR VELMA GICAL ORDERABLES * CHEST PA [...] agree with the findings. Сергей Damico MD [facility] DIAGNOSTIC IMAGI NG ORDERABLES * BACTERIAL CULTURE/SMEAR, RESPIRATORY (05/26/2017 12:14 EDT) Gram Smear Result Mod Polys 05/26/2017 14:30 EDT [facility] Gram Smear Result Mod Squamous epithelial cells 05/26/2017 14:30 EDT [facility] Gram Smear Result Mod Mixed gram positive and gram negative organisms 05/26/2017 14:30 EDT [facility] Gram Smear Result Smear suggests contamination with saliva. ??Please submit additional specimen if clinically indicated. 05/26/2017 14:30 EDT [facility] Result See gram smear results. 05/26/2017 14:30 EDT [facility] Result Credit Issued 05/26/2017 14:30 EDT [facility] Specimen of unknown material (specimen) SPUTUM / Unknown 05/26/2017 12:14 EDT 05/26/2017 13:50 EDT Сергей Damico MD MICROBIOLOGY - GENER AL ORDERABLES Performing Organization Address [facility] Co de Phone Number [facility] [address] [place] [address] * RESPIRATORY VIRUS DETECTION (05/26/2017 11:57 EDT) Result No RSV, Influenza A, or Influenza B detected by PCR 05/28/2017 14:18 EDT [facility] Result No Metapneumovirus detected by PCR. 05/28/2017 14:18 EDT [facility] Result No Parainfluenza Virus Type 1,2 or 3 detected by PCR. This assay may have decrease sensitivity for Parainfluenza Virus Type 3. 05/28/2017 14:18 EDT [facility] NASOPHARYNGEAL STRUCTURE / Unknown 05/26/2017 11:57 EDT 05/26/2017 12:19 EDT Сергей Damico MD MICROBIOLOGY - GENER AL ORDERABLES Performing Organization Address City/[facility]/ZIP Co de Phone Number [facility] [address] [place] [address] * ECHOCARDIOGRAM LIMITED (05/26/2017 11:16 EDT) Anatomical Region Laterality Modality Other 05/26/2017 11:1 6 EDT Narrative 05/26/2017 11:25 EDT *Interpreting Group:* *[facility] Cardiology* [address] [place] [address] Date of study: 05/26/2017 Transthoracic Echocardiography M-mode, [...] Rosenberg MD ORDERING ?Tony Rosenberg MD PERFORMING ??[facility], REFERRING ?? Katia Mccallum *PROCEDURE DATA* Procedure information: ??The patient was identified by two identifiers. This study was interpreted by [facility]. Pertinent images and [...] Andrade MD - 05/26/2017 *Interpreting Group:* *[facility]* [address] [place] [address] Date of study: 05/26/2017 Transthoracic Echocardiography M-mode, [...] identifiers. This study was interpreted by [facility]. Pertinent images and [...] the reported findings. Electronically signed by Bobby Andrdae MD 05/26/2017 11:25 Tony Rosenberg MD CARDIAC ECHO ORDERABLES * EKG 12-LEAD (05/26/2017 7:29 EDT) 05/26/2017 7:[address] [facility] EKG - 05/27/2017 13:18 EDT ? [facility] ? Test Date: ?2017-05-26 Pat Name: ? DAVID MERA ?Department: ?? [facility] 5 ? Room: ? MW531 Gender: ? M ?Tube Blower: ?? [id number] : ?1950 ? Requested By: PRADIP MONET Order Number: [id number] ? Reading MD: ?? PETER ROLF MD ? Measurements Intervals ?Procious ? Rate: ? 73 ? P: ? ND: ? 0 ?QRS: ?-45 QRSD: ? 192 [...] Laly Dela Cruz MD - 05/27/2017 [facility] Test Date: 2017-05-26 Pat Name: DAVID MERA Department: [place] [address] Room: [facility] Gender: M Tube Blower: [id number] : 1950 Requested By: PRADIP MONET Order Number: [id number] Reading MD: LALY DELA CRUZ MD Measurements Intervals Procious Rate: 73 P: ND: 0 QRS: -45 QRSD: 192 T: 176 [...] Antonia Zimmerman MD CARDIAC ECG ORDERABL ES [facility] EKG * (ABNORMAL) ELECTROLYTES (05/26/2017 5:57 EDT) Sodium 128(L) 136 - 145 mEq/L 05/26/2017 6:54 EDT [facility] Potassium 3.7 3.5 - 5.0 mEq/L 05/26/2017 6:54 EDT [facility] Chloride 85(L) 96 - 110 mEq/L 05/26/2017 6:54 EDT [facility] CO2 35(H) 22 - 32 mEq/L 05/26/2017 6:54 EDT [facility] Blood specimen (specimen) BLOOD SPECIMEN / Unknown 05/26/2017 5:57 EDT 05/26/2017 6:26 EDT Jayne Pozo MD CHEMISTRY & BLOOD GA S ORDERABLES Performing Organization Address City/[facility]/ZIP Co de Phone Number [facility] [address] [place] [address] * (ABNORMAL) BUN (05/26/2017 5:57 EDT) BUN 9(L) 10 - 26 mg/dl 05/26/2017 6:54 EDT [facility] Blood specimen (specimen) BLOOD SPECIMEN / Unknown 05/26/2017 5:57 EDT 05/26/2017 6:26 EDT Jayne Pozo MD CHEMISTRY & BLOOD GA S ORDERABLES Performing Organization Address City/[facility]/ZIP Co de Phone Number [facility] [address] [place] [address] * MAGNESIUM (05/26/2017 5:57 EDT) Magnesium 1.8 1.7 - 2.8 mg/dl 05/26/2017 6:54 EDT [facility] Blood specimen (specimen) BLOOD SPECIMEN / Unknown 05/26/2017 5:57 EDT 05/26/2017 6:26 EDT Jayne Pozo MD CHEMISTRY & BLOOD GA S ORDERABLES Performing Organization Address City/[facility] Co de Phone Number [facility] [address] [place] [address] * (ABNORMAL) CREATININE (05/26/2017 5:57 EDT) Creatinine 0.53(L) 0.66 - 1.25 mg/dl 05/26/2017 6:54 EDT [facility] GFR, Calculated 110 >60 ml/min/1.7 3m2 05/26/2017 6:54 [facility] Comment: eGFR calculated using CKD-EPI equation for non Americans. Multiply eGFR by 1.16 for Americans. Blood specimen (specimen) BLOOD SPECIMEN / Unknown 05/26/2017 5:57 EDT 05/26/2017 6:26 EDT Jayne Pozo MD CHEMISTRY & BLOOD GA S ORDERABLES [facility] [address] [place] [address] * (ABNORMAL) HEMAGRAM (05/26/2017 5:57 EDT) WBC 7.06 4.0 - 10.4 K/cmm 05/26/2017 6:33 [facility] RBC 3.20(L) 4.36 - 5.78 M/cmm 05/26/2017 6:33 [facility] Hemoglobin 10.7(L) 13.8 - 17.3 gm/dl 05/26/2017 6:33 [facility] HCT 30.0(L) 39.5 - 50.2 % 05/26/2017 6:33 [facility] MCV 94 81 - 95 fl 05/26/2017 6:33 [facility] MCH 33.4(H) 27.6 - 33.0 pg 05/26/2017 6:33 [facility] MCHC 35.7 32.8 - 36.4 gm/dl 05/26/2017 6:33 [facility] RDW-CV 11.3 <14.2 % 05/26/2017 6:33 [facility] RDW-SD 38.4 <46.0 fl 05/26/2017 6:33 [facility] PLT 306 141 - 377 K/cmm 05/26/2017 6:33 [facility] MPV 10.3 9.5 - 12.7 fl 05/26/2017 6:33 [facility] Blood specimen (specimen) BLOOD SPECIMEN / Unknown 05/26/2017 5:57 EDT 05/26/2017 6:26 EDT Jayne Pozo MD HEMATOLOGY & PF4 ORD ERABLES Performing Organization Address [facility] Co de Phone Number [facility] [address] [place] [address] * (ABNORMAL) ELECTROLYTES (05/25/2017 17:58 EDT) Sodium 130(L) 136 - 145 mEq/L 05/25/2017 18:29 EDT [facility] Potassium 3.6 3.5 - 5.0 mEq/L 05/25/2017 18:29 EDT [facility] Chloride 83(L) 96 - 110 mEq/L 05/25/2017 18:29 EDT [facility] CO2 36(H) 22 - 32 mEq/L 05/25/2017 18:29 EDT [facility] Blood specimen (specimen) BLOOD SPECIMEN / Unknown 05/25/2017 17:58 EDT 05/25/2017 18:03 EDT Jayne Pozo MD CHEMISTRY & BLOOD GA S ORDERABLES Performing Organization Address [facility] Co de Phone Number [facility] [address] [place] [address] * OSMOLALITY, URINE (05/25/2017 14:29 EDT) Osmolality, Ur 284 150 - 1,150 mos/kg 05/25/2017 15:18 EDT [facility] Urine specimen (specimen) URINE / Unknown 05/25/2017 14:29 EDT 05/25/2017 14:37 EDT Luciano Christian MD URINALYSIS ORDERABLE S Performing Organization Address [facility] Co de Phone Number [facility] [address] [place] [address] * URINE ELECTROLYTES (05/25/2017 14:29 EDT) Chloride, Ur 41 mEq/L 05/25/2017 15:10 EDT [facility] Comment: Reference Range: No reference range available Potassium, Urine 31.1 mEq/L 05/25/2017 15:10 EDT [facility] Sodium, Ur 81.0 mEq/L 05/25/2017 15:10 EDT [facility] Urine specimen (specimen) URINE / Unknown 05/25/2017 14:29 EDT 05/25/2017 14:37 EDT Luciano Christian MD URINALYSIS ORDERABLE S [facility] [address] [place] [address] * EKG 12-LEAD (05/25/2017 7:40 EDT) 05/25/2017 7:40 EDT Narrative [facility] EKG - 06/02/2017 8:35 EDT ? [facility] ? Test Date: ?2017-05-25 Pat Name: ? DAVID MERA ?Department: ?? [place] [address] ? Room: ? MW531 Gender: ? M ?Tube Blower: ?? [id number] : ?1950 ? Requested By: PRADIP MONET Order Number: [id number] ? Reading MD: ?? SENG PERSON SA, MD ? Measurements Intervals ?Procious ? Rate: ? 76 ? P: ?35 ND: ? 218 ?QRS: ?-47 QRSD: ? 188 [...] Seng Brody Sa, MD - 06/02/2017 [facility] Test Date: 2017-05-25 Pat Name: DAVID MERA Department: JAME Chao Room: [facility] Gender: M Tube Blower: [id number] : 1950 Requested By: PRADIP MONET Order Number: [id number] Reading MD: SENG ROBLEDO Measurements Intervals Procious Rate: 76 P: 35 ND: 218 QRS: -47 QRSD: 188 T: 193 [...] CARDIAC ECG ORDERABL ES Performing Organization Address City/[facility]/ZIP Co de Phone Number [facility] EKG * (ABNORMAL) ELECTROLYTES (05/25/2017 5:59 EDT) Sodium 127(L) 136 - 145 mEq/L 05/25/2017 7:02 EDT [facility] Potassium 3.7 3.5 - 5.0 mEq/L 05/25/2017 7:02 EDT [facility] Chloride 85(L) 96 - 110 mEq/L 05/25/2017 7:02 EDT [facility] CO2 36(H) 22 - 32 mEq/L 05/25/2017 7:02 EDT [facility] Blood specimen (specimen) BLOOD SPECIMEN / Unknown 05/25/2017 5:59 EDT 05/25/2017 6:23 EDT Jayne Pozo MD CHEMISTRY & BLOOD GA S ORDERABLES [facility] [address] [place] [address] * (ABNORMAL) BUN (05/25/2017 5:59 EDT) BUN 9(L) 10 - 26 mg/dl 05/25/2017 7:02 EDT [facility] Blood specimen (specimen) BLOOD SPECIMEN / Unknown 05/25/2017 5:59 EDT 05/25/2017 6:23 EDT Jayne Pozo MD CHEMISTRY & BLOOD GA S ORDERABLES [facility] [address] [place] [address] * MAGNESIUM (05/25/2017 5:59 EDT) Magnesium 1.7 1.7 - 2.8 mg/dl 05/25/2017 7:02 EDT [facility] Blood specimen (specimen) BLOOD SPECIMEN / Unknown 05/25/2017 5:59 EDT 05/25/2017 6:23 EDT Jayne Pozo MD CHEMISTRY & BLOOD GA S ORDERABLES Performing Organization Address [facility] Co de Phone Number [facility] [address] [place] [address] * (ABNORMAL) CREATININE (05/25/2017 5:59 EDT) Creatinine 0.54(L) 0.66 - 1.25 mg/dl 05/25/2017 7:02 EDT [facility] GFR, Calculated 109 >60 ml/min/1.7 3m2 05/25/2017 7:02 EDT [facility] Comment: eGFR calculated using CKD-EPI equation for non Americans. Multiply eGFR by 1.16 for Americans. Blood specimen (specimen) BLOOD SPECIMEN / Unknown 05/25/2017 5:59 EDT 05/25/2017 6:23 EDT Jayne Pozo MD CHEMISTRY & BLOOD GA S ORDERABLES Performing Organization Address [facility] Co de Phone Number [facility] [address] [place] [address] * (ABNORMAL) HEMAGRAM (05/25/2017 5:59 EDT) WBC 6.99 4.0 - 10.4 K/cmm 05/25/2017 6:36 [facility] RBC 3.16(L) 4.36 - 5.78 M/cmm 05/25/2017 6:36 [facility] Hemoglobin 10.5(L) 13.8 - 17.3 gm/dl 05/25/2017 6:36 [facility] HCT 29.5(L) 39.5 - 50.2 % 05/25/2017 6:36 [facility] MCV 93 81 - 95 fl 05/25/2017 6:36 [facility] MCH 33.2(H) 27.6 - 33.0 pg 05/25/2017 6:36 [facility] MCHC 35.6 32.8 - 36.4 gm/dl 05/25/2017 6:36 [facility] RDW-CV 11.2 <14.2 % 05/25/2017 6:36 [facility] RDW-SD 38.8 <46.0 fl 05/25/2017 6:36 [facility] PLT 290 141 - 377 K/cmm 05/25/2017 6:36 [facility] MPV 10.7 9.5 - 12.7 fl 05/25/2017 6:36 [facility] Blood specimen (specimen) BLOOD SPECIMEN / Unknown 05/25/2017 5:59 EDT 05/25/2017 6:23 EDT Jayne Pozo MD HEMATOLOGY & PF4 ORD ERABLES [facility] [address] [place] [address] * (ABNORMAL) ELECTROLYTES (05/24/2017 18:02 EDT) Sodium 127(L) 136 - 145 mEq/L 05/24/2017 18:40 [facility] Potassium 3.7 3.5 - 5.0 mEq/L 05/24/2017 18:40 [facility] Chloride 80(L) 96 - 110 mEq/L 05/24/2017 18:40 EDT [facility] CO2 37(H) 22 - 32 mEq/L 05/24/2017 18:48 EDT [facility] Blood specimen (specimen) BLOOD SPECIMEN / Unknown 05/24/2017 18:02 EDT 05/24/2017 18:16 EDT Jayne Pozo MD CHEMISTRY & BLOOD GA S ORDERABLES [facility] [address] [place] [address] * EKG 12-LEAD (05/24/2017 7:22 EDT) 05/24/2017 7:22 EDT Narrative [facility] EKG - 05/28/2017 9:56 EDT ? [facility] ? Test Date: ?2017-05-24 Pat Name: ? DAVID MERA ?Department: ?? [place] [address] ? Room: ? MW531 Gender: ? M ?Tube Blower: ?? [id number] : ?1950 ? Requested By: PRADIP MONET Order Number: [id number] ? Martha OAKES: ?? ERVIN WILHELM MD ? Measurements Intervals ?Procious ? Rate: ? 103 ?P: ?-19 ND: ? 232 ?QRS: ?-39 QRSD: ? 192 [...] MD - 05/28/2017 [facility] Test Date: 2017-05-24 Pat Name: DAVID MERA Department: [place] [address] Room: [facility] Gender: M Tube Blower: [id number] : 1950 Requested By: PRADIP MONET Order Number: [id number] Reading MD: ERVIN WILHELM MD Measurements Intervals Procious Rate: 103 P: -19 ND: 232 QRS: -39 QRSD: 192 T: 168 QT: 412 QTc: 542 Interpretive Statements ELECTRONIC VENTRICULAR PACEMAKER Compared to ECG 05/23/2017 07:20:54 No significant changes I reviewed the tracing and have either agreed or edited the findings inthis report. Electronically Signed On 05-28-17 09:56:53 EDT by ERVIN MARCH. Maria Antonia Zimmerman MD CARDIAC ECG ORDERABL ES Performing Organization Address [facility] Co de Phone Number [facility] EKG * (ABNORMAL) ELECTROLYTES (05/24/2017 5:51 EDT) Sodium 128(L) 136 - 145 mEq/L 05/24/2017 6:56 EDT [facility] Potassium 3.9 3.5 - 5.0 mEq/L 05/24/2017 6:56 EDT [facility] Chloride 83(L) 96 - 110 mEq/L 05/24/2017 6:56 EDT [facility] CO2 36(H) 22 - 32 mEq/L 05/24/2017 7:10 EDT [facility] Blood specimen (specimen) BLOOD SPECIMEN / Unknown 05/24/2017 5:51 EDT 05/24/2017 6:19 EDT Jayne Pozo MD CHEMISTRY & BLOOD GA S ORDERABLES Performing Organization Address [facility] de Phone Number [facility] [address] [place] [address] * (ABNORMAL) BUN (05/24/2017 5:51 EDT) BUN 9(L) 10 - 26 mg/dl 05/24/2017 6:56 EDT [facility] Blood specimen (specimen) BLOOD SPECIMEN / Unknown 05/24/2017 5:51 EDT 05/24/2017 6:19 EDT Jayne Pozo MD CHEMISTRY & BLOOD GA S ORDERABLES Performing Organization Address [facility] de Phone Number [facility] [address] [place] [address] * MAGNESIUM (05/24/2017 5:51 EDT) Magnesium 1.7 1.7 - 2.8 mg/dl 05/24/2017 6:56 EDT [facility] Blood specimen (specimen) BLOOD SPECIMEN / Unknown 05/24/2017 5:51 EDT 05/24/2017 6:19 EDT Jayne Pozo MD CHEMISTRY & BLOOD GA S ORDERABLES [facility] [address] [place] [address] * (ABNORMAL) CREATININE (05/24/2017 5:51 EDT) Creatinine 0.59(L) 0.66 - 1.25 mg/dl 05/24/2017 6:56 EDT [facility] GFR, Calculated 105 >60 ml/min/1.7 3m2 05/24/2017 6:56 EDT [facility] Comment: eGFR calculated using CKD-EPI equation for non Americans. Multiply eGFR by 1.16 for Americans. Blood specimen (specimen) BLOOD SPECIMEN / Unknown 05/24/2017 5:51 EDT 05/24/2017 6:19 EDT Jayne Pozo MD CHEMISTRY & BLOOD GA S ORDERABLES Performing Organization Address City/[facility]/ZIP Co de Phone Number [facility] [address] [place] [address] * (ABNORMAL) HEMAGRAM (05/24/2017 5:51 EDT) WBC 7.61 4.0 - 10.4 K/cmm 05/24/2017 6:30 EDT [facility] RBC 3.35(L) 4.36 - 5.78 M/cmm 05/24/2017 6:30 EDT [facility] Hemoglobin 11.0(L) 13.8 - 17.3 gm/dl 05/24/2017 6:30 EDT [facility] HCT 31.4(L) 39.5 - 50.2 % 05/24/2017 6:30 EDT [facility] MCV 94 81 - 95 fl 05/24/2017 6:30 EDT [facility] MCH 32.8 27.6 - 33.0 pg 05/24/2017 6:30 EDT [facility] MCHC 35.0 32.8 - 36.4 gm/dl 05/24/2017 6:30 EDT [facility] RDW-CV 11.4 <14.2 % 05/24/2017 6:30 T [facility] RDW-SD 39.0 <46.0 fl 05/24/2017 6:30 EDT [facility] PLT 273 141 - 377 K/cmm 05/24/2017 6:30 T [facility] MPV 10.9 9.5 - 12.7 fl 05/24/2017 6:30 EDT [facility] Blood specimen (specimen) BLOOD SPECIMEN / Unknown 05/24/2017 5:51 EDT 05/24/2017 6:19 EDT Jayne Pozo MD HEMATOLOGY & PF4 ORD ERABLES [facility] [address] [place] [address] * (ABNORMAL) ELECTROLYTES (05/23/2017 21:40 EDT) Sodium 128(L) 136 - 145 mEq/L 05/23/2017 22:23 EDT [facility] Potassium 3.6 3.5 - 5.0 mEq/L 05/23/2017 22:23 EDT [facility] Chloride 81(L) 96 - 110 mEq/L 05/23/2017 22:23 EDT [facility] CO2 38(H) 22 - 32 mEq/L 05/23/2017 22:56 EDT [facility] Blood specimen (specimen) BLOOD SPECIMEN / Unknown 05/23/2017 21:40 EDT 05/23/2017 21:45 EDT Jayne Pozo MD CHEMISTRY & BLOOD GA S ORDERABLES Performing Organization Address City/[facility] Co de Phone Number [facility] [address] [place] [address] * ECG REPORT - SCANNED (05/23/2017 15:08 EDT) 05/23/2017 15:0 8 EDT Scan 2 Wind Tunnel Mechanic PROCEDURE/MINOR VELMA GICAL ORDERABLES * (ABNORMAL) ELECTROLYTES (05/23/2017 12:16 EDT) Sodium 126(L) 136 - 145 mEq/L 05/23/2017 12:55 EDT [facility] Potassium 3.7 3.5 - 5.0 mEq/L 05/23/2017 12:55 EDT [facility] Chloride 81(L) 96 - 110 mEq/L 05/23/2017 12:55 EDT [facility] CO2 36(H) 22 - 32 mEq/L 05/23/2017 12:55 EDT [facility] Blood specimen (specimen) BLOOD SPECIMEN / Unknown 05/23/2017 12:16 EDT 05/23/2017 12:26 EDT Jayne Pozo MD CHEMISTRY & BLOOD GA S ORDERABLES Performing Organization Address [facility] Co de Phone Number [facility] [address] [place] [address] * ECG REPORT - SCANNED (05/23/2017 11:51 EDT) 05/23/2017 11:5 1 EDT Scan 2 Wind Tunnel Mechanic PROCEDURE/MINOR VELMA GICAL ORDERABLES * ECHOCARDIOGRAM LIMITED (05/23/2017 10:59 EDT) Anatomical Region Laterality Modality Other 05/23/2017 10:5 9 EDT Narrative 05/23/2017 11:19 EDT *Interpreting Group:* *[facility]* [address] [place] [address] Date of study: 05/23/2017 Transthoracic Echocardiography M-mode, [...] ?Akash Reyes MD ATTENDING ?Tony Rosenberg MD LINING CLEANER ??Hali Del Real JUSTINO PERFORMING ?? Uvc, ORDERING ? Jayne Landry REFERRING ?Xena Katiacarrington Rodas *PROCEDURE DATA* Procedure information: ??This study was interpreted by [facility]. Pertinent images and digital data are archived for permanent storage and are available for subsequent review. Study status: ??Routine. Transthoracic echocardiography. ??M-mode, limited 2D, limited spectral Doppler, and color Doppler. A Transthoracic Echocardiogram was performed. Scanning was performed from the parasternal, apical, and subcostal acoustic windows. Images were obtained using an MomentFeedq 10 cardiac ultrasound machine. Image quality was [...] edited the reported findings. Electronically signed by Bobyb Andrade MD 05/23/2017 11:19 Procedure Note Bobby Andrade MD - 05/23/2017 *Interpreting Group:* *[facility]* [address] [place] [address] Date of study: 05/23/2017 Transthoracic Echocardiography M-mode, [...] Akash Reyes MD ATTENDING Tony Rosenberg MD LINING CLEANER Hali Del Real, [facility] PERFORMING [employer], Ip ORDERING Jayne Landry Katelyn Doran *PROCEDURE DATA* Procedure information: This study was interpreted by [facility]. Pertinent images and [...] edited the reported findings. Electronically signed by oBbby Andrade MD 05/23/2017 11:19 Jayne Pozo MD CARDIAC ECHO ORDERAB LES * ECG REPORT - SCANNED (05/23/2017 10:42 EDT) 05/23/2017 10:4 2 EDT Scan 2 Wind Tunnel Mechanic PROCEDURE/MINOR VELMA GICAL ORDERABLES * FLUID DIFFERENTIAL (05/23/2017 7:47 EDT) Neutrophils, Fluid 30 % 05/23/2017 11:34 T [facility] Lymphocytes, Fluid 64 % 05/23/2017 11:34 EDT [facility] Stutsman/Macro, Fluid 5 % 05/23/2017 11:34 [facility] Eosinophil, Fluid 1 % 05/23/2017 11:34 [facility] PERICARDIAL FLUID AND CAVITY, CS / Unknown 05/23/2017 7:47 EDT 05/23/2017 8:18 EDT Сергей Damico MD GEN LAB UNIT COLLECT ORDERABLES Performing Organization Address City/[facility] Co de Phone Number [facility] [address] [place] [address] * FUNGUS CULTURE/SMEAR, OTHER (05/23/2017 7:47 EDT) Fungal Smear No fungi seen 05/23/2017 14:20 EDT [facility] Result No fungi isolated 05/30/2017 7:35 EDT [facility] FOSMIC PERICARDIAL FLUID AND CAVITY, CS / Unknown 05/23/2017 7:47 EDT 05/23/2017 9:17 EDT Comment:Markedly bloody Сергей Damico MD MICROBIOLOGY - GENER AL ORDERABLES Performing Organization Address [facility] Co de Phone Number [facility] [address] [place] [address] * ANAEROBE CULTURE/SMEAR(INC. AEROBES), FLUID (05/23/2017 7:47 EDT) Gram Smear Result Few Polys 05/23/2017 9:37 EDT [facility] Gram Smear Result No bacteria seen 05/23/2017 9:37 EDT [facility] Result No growth 05/25/2017 11:45 EDT [facility] FOSMIC PERICARDIAL FLUID AND CAVITY, CS / Unknown 05/23/2017 7:47 EDT 05/23/2017 9:16 EDT Comment:Markedly bloody Сергей Damico MD MICROBIOLOGY - GENER AL ORDERABLES Performing Organization Address [facility] Co de Phone Number [facility] [address] [place] [address] * HEMATOCRIT, BODY FLUID (05/23/2017 7:47 EDT) Hematocrit,Bod y Fld 6.5 % 05/23/2017 9:56 EDT [facility] Comment:PERICARDIAL FLUID [facility] PERICARDIAL FLUID AND CAVITY, CS / Unknown 05/23/2017 7:47 EDT 05/23/2017 8:18 EDT Сергей Damico MD GEN LAB UNIT COLLECT ORDERABLES Performing Organization Address City/[facility] Co de Phone Number [facility] [address] [place] [address] * FLUID CELL COUNT (05/23/2017 7:47 EDT) RBC, Fluid 661,000 /cmm 05/23/2017 9:41 EDT [facility] [facility] Nucleated Cells 1,773 /cmm 05/23/2017 9:41 EDT [facility] Fluid Comment Markedly bloody 05/23/2017 9:41 EDT [facility] PERICARDIAL FLUID AND CAVITY, CS / Unknown 05/23/2017 7:47 EDT 05/23/2017 8:18 EDT Сергей Damico MD GEN LAB UNIT COLLECT ORDERABLES Performing Organization Address [facility] Co de Phone Number [facility] [address] [place] [address] * TOTAL PROTEIN, FLUID (05/23/2017 7:47 EDT) Protein, Fluid 5.5 g/dl 05/23/2017 9:58 EDT [facility] Comment: Reference Range: Pleural [...] the blood, serum, or plasma is recommended. [facility] PERICARDIAL FLUID AND CAVITY, CS / Unknown 05/23/2017 7:47 EDT 05/23/2017 8:18 EDT Сергей Damico MD GEN LAB UNIT COLLECT ORDERABLES Performing Organization Address City/[facility] Co de Phone Number [facility] [address] [place] [address] * LDH, FLUID (05/23/2017 7:47 EDT) LDH, Fluid 2,337 U/L 05/23/2017 10:05 EDT [facility] Comment: Pleural fluid specimen [...] the blood, serum, or plasma is recommended. [facility] PERICARDIAL FLUID AND CAVITY, CS / Unknown 05/23/2017 7:47 EDT 05/23/2017 8:18 EDT Сергей Damico MD GEN LAB UNIT COLLECT ORDERABLES Performing Organization Address [facility] de Phone Number [facility] [address] [place] [address] * GLUCOSE, FLUID (05/23/2017 7:47 EDT) Glucose, Fluid 54 mg/dl 05/23/2017 9:58 EDT [facility] Comment: Reference Range: Pleural [...] the blood, serum, or plasma is recommended. [facility], CS / Unknown 05/23/2017 7:47 EDT 05/23/2017 8:18 EDT Сергей Damico MD GEN LAB UNIT COLLECT ORDERABLES Performing Organization Address City/[facility] Co de Phone Number [facility] [address] [place] [address] * ALBUMIN, FLUID (05/23/2017 7:47 EDT) Albumin, Fluid 2.5 g/dl 05/23/2017 9:58 EDT [facility] Comment: Reference Range: Pleural [...] the blood, serum, or plasma is recommended. [facility] PERICARDIAL FLUID AND CAVITY, CS / Unknown 05/23/2017 7:47 EDT 05/23/2017 8:18 EDT Сергей Damico MD GEN LAB UNIT COLLECT ORDERABLES Performing Organization Address City/[facility]/ZIP Co de Phone Number [facility] [address] [place] [address] * EKG 12-LEAD (05/23/2017 7:20 EDT) 05/23/2017 7:20 EDT Narrative [facility] E[facility] - 05/23/2017 11:45 EDT ? [facility] ? Test Date: ?2017-05-23 Pat Name: ? DAVID MERA ?Department: ?? [address] ? Room: ? MW531 Gender: ? M ?Tube Blower: ?? [id number] : ?1950 ? Requested By: PRADIP MONET Order Number: [id number] ? Reading MD: ?? MARCO A FOX MD ? Measurements Intervals ?Procious ? Rate: ? 102 ?P: ? ND: ? 0 ?QRS: ?-20 QRSD: ? 189 ?T: ?178 QT: ? 398 ? QTc: ?519 ? Interpretive Statements ELECTRONIC VENTRICULAR PACEMAKER ABNORMAL RHYTHM ECG I reviewed the tracing and have either agreed or edited the findings in this report. Electronically Signed On 05-23-17 11:45:47 EDT by MARCO A FOX MD. Procedure Note Marco A Fox MD - 05/23/2017 [facility] Test Date: 2017-05-23 Pat Name: DAVID MERA Department: [place] [address] Room: [facility] Gender: M Tube Blower: [id number] : 1950 Requested By: PRADIP MONET Order Number: [id number] Martha MD: MARCO A FOX MD Measurements Intervals Procious Rate: 102 P: ND: 0 QRS: -20 QRSD: 189 T: 178 QT: 398 QTc: 519 Interpretive Statements ELECTRONIC VENTRICULAR PACEMAKER ABNORMAL RHYTHM ECG I reviewed the tracing and have either agreed or edited the findings inthis report. Electronically Signed On 05-23-17 11:45:47 EDT by MARCO A NGUYEN. Maria Antonia Zimmerman MD CARDIAC ECG ORDERABL ES [facility] EKG * (ABNORMAL) ELECTROLYTES (05/23/2017 6:42 EDT) Sodium 124(LL) 136 - 145 mEq/L 05/23/2017 7:45 EDT [facility] Potassium 3.5 3.5 - 5.0 mEq/L 05/23/2017 7:45 EDT [facility] Chloride 84(L) 96 - 110 mEq/L 05/23/2017 7:45 EDT [facility] CO2 33(H) 22 - 32 mEq/L 05/23/2017 7:45 EDT [facility] Blood specimen (specimen) BLOOD SPECIMEN / Unknown 05/23/2017 6:42 EDT 05/23/2017 7:16 EDT Jayne Pozo MD CHEMISTRY & BLOOD GA S ORDERABLES Performing Organization Address [facility] Co de Phone Number [facility] [address] [place] [address] * BUN (05/23/2017 6:42 EDT) BUN 10 10 - 26 mg/dl 05/23/2017 7:45 EDT [facility] Blood specimen (specimen) BLOOD SPECIMEN / Unknown 05/23/2017 6:42 EDT 05/23/2017 7:16 EDT Jayen Pozo MD CHEMISTRY & BLOOD GA S ORDERABLES Performing Organization Address [facility] de Phone Number [facility] [address] [place] [address] * MAGNESIUM (05/23/2017 6:42 EDT) Magnesium 1.7 1.7 - 2.8 mg/dl 05/23/2017 7:45 EDT [facility] Blood specimen (specimen) BLOOD SPECIMEN / Unknown 05/23/2017 6:42 EDT 05/23/2017 7:16 EDT Jayne Pozo MD CHEMISTRY & BLOOD GA S ORDERABLES Performing Organization Address [facility] Co de Phone Number [facility] [address] [place] [address] * (ABNORMAL) CREATININE (05/23/2017 6:42 EDT) Creatinine 0.50(L) 0.66 - 1.25 mg/dl 05/23/2017 7:45 EDT [facility] GFR, Calculated 113 >60 ml/min/1.7 3m2 05/23/2017 7:45 EDT [facility] Comment: eGFR calculated using CKD-EPI equation for non Americans. Multiply eGFR by 1.16 for Americans. Blood specimen (specimen) BLOOD SPECIMEN / Unknown 05/23/2017 6:42 EDT 05/23/2017 7:16 EDT Jayne Pozo MD CHEMISTRY & BLOOD GA S ORDERABLES [facility] [address] [place] [address] * (ABNORMAL) HEMAGRAM (05/23/2017 6:42 EDT) WBC 8.96 4.0 - 10.4 K/cmm 05/23/2017 7:24 [facility] RBC 3.30(L) 4.36 - 5.78 M/cmm 05/23/2017 7:24 [facility] Hemoglobin 11.0(L) 13.8 - 17.3 gm/dl 05/23/2017 7:24 [facility] HCT 30.8(L) 39.5 - 50.2 % 05/23/2017 7:24 [facility] MCV 93 81 - 95 fl 05/23/2017 7:24 [facility] MCH 33.3(H) 27.6 - 33.0 pg 05/23/2017 7:24 [facility] MCHC 35.7 32.8 - 36.4 gm/dl 05/23/2017 7:24 [facility] RDW-CV 11.3 <14.2 % 05/23/2017 7:24 [facility] RDW-SD 38.5 <46.0 fl 05/23/2017 7:24 [facility] PLT 254 141 - 377 K/cmm 05/23/2017 7:24 [facility] MPV 11.2 9.5 - 12.7 fl 05/23/2017 7:24 [facility] Blood specimen (specimen) BLOOD SPECIMEN / Unknown 05/23/2017 6:42 EDT 05/23/2017 7:16 EDT Jayne Pozo MD HEMATOLOGY & PF4 ORD ERABLES [facility] [address] [place] [address] * CYTOPATHOLOGY (05/23/2017 0:00 EDT) Pathology Report: CYTOPATHOLOGY REPORT Reports generated via electronic interface contain original data; however they are lacking the format of the original report. Caution should be taken when reading/interpret ing unformatted reports. Name: ? DAVID MERA ? Accession #: ? [id number] : ? 1950 (Age: 66) ??M ?Collect [...] cellular enhancement technique. ? End of Report [facility] 05/23/2017 05/23/2017 9:4 0 EDT Сергей Damico MD PATHOLOGY ORDERABLES Performing Organization Address [facility] de Phone Number [facility] [address] [place] [address] * (ABNORMAL) ELECTROLYTES (05/22/2017 23:40 EDT) Sodium 125(L) 136 - 145 mEq/L 05/23/2017 0:39 EDT [facility] Potassium 3.3(L) 3.5 - 5.0 mEq/L 05/23/2017 0:39 EDT [facility] Chloride 84(L) 96 - 110 mEq/L 05/23/2017 0:39 EDT [facility] CO2 33(H) 22 - 32 mEq/L 05/23/2017 0:39 EDT [facility] Blood specimen (specimen) BLOOD SPECIMEN / Unknown 05/22/2017 23:40 EDT 05/22/2017 23:58 EDT Jayne Pozo MD CHEMISTRY & BLOOD GA S ORDERABLES Performing Organization Address [facility] de Phone Number [facility] [address] [place] [address] * (ABNORMAL) ELECTROLYTES (05/22/2017 18:36 EDT) Sodium 124(LL) 136 - 145 mEq/L 05/22/2017 19:37 EDT [facility] Comment:Slight hemolysis Potassium 3.9 3.5 - 5.0 mEq/L 05/22/2017 19:37 EDT [facility] Comment: Slight hemolysis Hemolysis may elevate potassium result. Chloride 81(L) 96 - 110 mEq/L 05/22/2017 19:37 EDT [facility] Comment:Slight hemolysis CO2 32 22 - 32 mEq/L 05/22/2017 19:37 EDT [facility] Comment:Slight hemolysis Blood specimen (specimen) BLOOD SPECIMEN / Unknown 05/22/2017 18:36 EDT 05/22/2017 19:04 EDT Jayne Pozo MD CHEMISTRY & BLOOD GA S ORDERABLES [facility] [address] [place] [address] * CHEST PA AND LATERAL (05/22/2017 14:43 [...] 136 - 145 mEq/L 05/22/2017 13:23 EDT [facility] Comment:Moderate hemolysis Potassium 5.3(H) 3.5 - 5.0 mEq/L 05/22/2017 13:23 EDT [facility] Comment: Moderate hemolysis Hemolysis may elevate potassium result. Chloride 85(L) 96 - 110 mEq/L 05/22/2017 13:23 EDT [facility] Comment:Moderate hemolysis CO2 27 22 - 32 mEq/L 05/22/2017 13:23 EDT [facility] Comment:Moderate hemolysis Blood specimen (specimen) BLOOD SPECIMEN / Unknown 05/22/2017 12:36 EDT 05/22/2017 12:51 EDT Jayne Pozo MD CHEMISTRY & BLOOD GA S ORDERABLES Performing Organization Address City/[facility] Co de Phone Number [facility] [address] [place] [address] * BACTERIAL CULTURE, BLOOD (05/22/2017 9:58 EDT) Result No growth 05/27/2017 6:35 EDT [facility] Blood specimen (specimen) BLOOD SPECIMEN / Unknown 05/22/2017 9:58 EDT 05/22/2017 10:47 EDT Comment:Left~Hand~AEROBIC BL OOD CULTURE BOTTLE~Volume of blood collected may not be adequate for detection of bacteremia/septicemia.~2ND SET Jayne Pozo MD MICROBIOLOGY - GENER AL ORDERABLES Performing Organization Address [facility] Co de Phone Number [facility] [address] [place] [address] * BACTERIAL CULTURE, BLOOD (05/22/2017 9:58 EDT) Result No growth 05/27/2017 6:35 EDT [facility] Blood specimen (specimen) BLOOD SPECIMEN / Unknown 05/22/2017 9:58 EDT 05/22/2017 10:47 EDT Comment:Left~Hand~Total volu me of blood collected:~20 ml Jayne Pozo MD MICROBIOLOGY - GENER AL ORDERABLES Performing Organization Address [facility] Co de Phone Number [facility] [address] [place] [address] * EKG 12-LEAD (05/22/2017 8:04 EDT) 05/22/2017 8:04 EDT Narrative [facility] EKG - 05/26/2017 12:50 EDT ? [facility] ? Test Date: ?2017-05-22 Pat Name: ? DAVID MERA ?Department: ?? [address] 5 ? Room: ? MW531 Gender: ? M ?Tube Blower: ?? [id number] : ?1950 ? Requested By: PRADIP MONET Order Number: [id number] ? Reading MD: ?? GAGAN RAMOS MD ? Measurements Intervals ?Procious ? Rate: ? 115 ?P: ?-20 ND: ? 237 ?QRS: ?-24 QRSD: ? 177 [...] MD - 05/26/2017 [facility] Test Date: 2017-05-22 Pat Name: DAVID MERA Department: [place] [address] Room: [facility] Gender: M Tube Blower: [id number] : 1950 Requested By: PRADIP MONET Order Number: [id number] Martha MD: GAGAN RAMOS MD Measurements Intervals Procious Rate: 115 P: -20 ND: 237 QRS: -24 QRSD: 177 T: 172 QT: 357 QTc: 496 Interpretive Statements ELECTRONIC VENTRICULAR PACEMAKER ABNORMAL RHYTHM ECG Compared to ECG 05/21/2017 20:29:55 No significant changes I reviewed the tracing and have either agreed or edited the findings inthis report. Electronically Signed On 05-26-17 12:50:27 EDT by GAGAN LEDESMA. Maria Antonia Zimmerman MD CARDIAC ECG ORDERABL ES [facility] EKG * BUN (05/22/2017 4:09 EDT) BUN 11 10 - 26 mg/dl 05/22/2017 4:54 EDT [facility] Blood specimen (specimen) BLOOD SPECIMEN / Unknown 05/22/2017 4:09 EDT 05/22/2017 4:18 EDT Jayne Pozo MD CHEMISTRY & BLOOD GA S ORDERABLES Performing Organization Address City/[facility]/ZIP Co de Phone Number [facility] [address] [place] [address] * MAGNESIUM (05/22/2017 4:09 EDT) Magnesium 2.1 1.7 - 2.8 mg/dl 05/22/2017 4:54 EDT [facility] Blood specimen (specimen) BLOOD SPECIMEN / Unknown 05/22/2017 4:09 EDT 05/22/2017 4:18 EDT Jayne Pozo MD CHEMISTRY & BLOOD GA S ORDERABLES Performing Organization Address [facility] Co de Phone Number [facility] [address] [place] [address] * (ABNORMAL) CREATININE (05/22/2017 4:09 EDT) Creatinine 0.56(L) 0.66 - 1.25 mg/dl 05/22/2017 4:54 EDT [facility] GFR, Calculated 108 >60 ml/min/1.7 3m2 05/22/2017 4:54 EDT [facility] Comment: eGFR calculated using CKD-EPI equation for non Americans. Multiply eGFR by 1.16 for Americans. Blood specimen (specimen) BLOOD SPECIMEN / Unknown 05/22/2017 4:09 EDT 05/22/2017 4:18 EDT Jayne Pozo MD CHEMISTRY & BLOOD GA S ORDERABLES Performing Organization Address [facility]/ZIP Co de Phone Number [facility] [address] [place] [address] * (ABNORMAL) HEMAGRAM (05/22/2017 4:09 EDT) WBC 10.75(H) 4.0 - 10.4 K/cmm 05/22/2017 4:37 EDT [facility] RBC 3.70(L) 4.36 - 5.78 M/cmm 05/22/2017 4:37 T [facility] Hemoglobin 12.2(L) 13.8 - 17.3 gm/dl 05/22/2017 4:37 T [facility] HCT 34.1(L) 39.5 - 50.2 % 05/22/2017 4:37 [facility] MCV 92 81 - 95 fl 05/22/2017 4:37 [facility] MCH 33.0 27.6 - 33.0 pg 05/22/2017 4:37 [facility] MCHC 35.8 32.8 - 36.4 gm/dl 05/22/2017 4:37 [facility] RDW-CV 10.9 <14.2 % 05/22/2017 4:37 [facility] RDW-SD 37.2 <46.0 fl 05/22/2017 4:37 [facility] PLT 294 141 - 377 K/cmm 05/22/2017 4:37 [facility] MPV 10.7 9.5 - 12.7 fl 05/22/2017 4:37 [facility] Blood specimen (specimen) BLOOD SPECIMEN / Unknown 05/22/2017 4:09 EDT 05/22/2017 4:18 EDT Jayne Pozo MD HEMATOLOGY & PF4 ORD ERABLES [facility] [address] [place] [address] * (ABNORMAL) ELECTROLYTES (05/22/2017 4:09 EDT) Sodium 122(LL) 136 - 145 mEq/L 05/22/2017 4:54 T [facility] Potassium 4.0 3.5 - 5.0 mEq/L 05/22/2017 4:54 EDT [facility] Chloride 84(L) 96 - 110 mEq/L 05/22/2017 4:54 EDT [facility] CO2 29 22 - 32 mEq/L 05/22/2017 4:54 EDT [facility] Blood specimen (specimen) BLOOD SPECIMEN / Unknown 05/22/2017 4:09 EDT 05/22/2017 4:18 EDT Maria Antonia Zimmerman MD CHEMISTRY & BLOOD GA S ORDERABLES Performing Organization Address [facility] de Phone Number [facility] [address] [place] [address] * (ABNORMAL) ELECTROLYTES (05/22/2017 0:23 EDT) Sodium 120(LL) 136 - 145 mEq/L 05/22/2017 1:00 EDT [facility] Potassium 3.4(L) 3.5 - 5.0 mEq/L 05/22/2017 1:00 EDT [facility] Chloride 83(L) 96 - 110 mEq/L 05/22/2017 1:00 EDT [facility] CO2 31 22 - 32 mEq/L 05/22/2017 1:00 EDT [facility] Blood specimen (specimen) BLOOD SPECIMEN / Unknown 05/22/2017 0:23 EDT 05/22/2017 0:27 EDT Maria Antonia Zimmerman MD CHEMISTRY & BLOOD GA S ORDERABLES Performing Organization Address [facility] Co de Phone Number [facility] [address] [place] [address] * EKG 12-LEAD (05/21/2017 20:29 EDT) 05/21/2017 20:2 9 EDT Narrative [facility] EKG - 05/30/2017 11:55 EDT ? [facility] ? Test Date: ?2017-05-21 Pat Name: ? DAVID MERA ?Department: ?? [address] ? Room: ? MW531 Gender: ? M ?Tube Blower: ?? [id number] : ?1950 ? Requested By: ROBLES Cabral Order Number: [id number] ? Reading MD: ?? ASHLEY CONSUELO MD ? Measurements Intervals ?Procious ? Rate: ? 109 ?P: ? ND: ? 0 ?QRS: ?-41 QRSD: ? 179 [...] Ashley Edwards Jr., MD - 05/30/2017 [facility] Test Date: 2017-05-21 Pat Name: DAVID MERA Department: [place] [address] Room: [facility] Gender: M Tube Blower: [id number] : 1950 Requested By: ROBLES Cabral Order Number: [id number] Reading MD: ASHLEY EDWARDS MD Measurements Intervals Procious Rate: 109 P: ND: 0 QRS: -41 QRSD: 179 T: 175 QT: 391 QTc: 528 Interpretive Statements ELECTRONIC VENTRICULAR PACEMAKER ABNORMAL RHYTHM ECG Compared to ECG 05/21/2017 07:12:25 No significant changes I reviewed the tracing and have either agreed or edited the findings inthis report. Electronically Signed On 05-30-17 11:55:09 EDT by ASHLEY RAI. Seng Rand MD PhD CARDIA C ECG ORDERABLES [facility] EKG * PORTABLE CHEST 1 VIEW [...] 136 - 145 mEq/L 05/21/2017 20:54 EDT [facility] Potassium 3.7 3.5 - 5.0 mEq/L 05/21/2017 20:54 EDT [facility] Chloride 79(L) 96 - 110 mEq/L 05/21/2017 20:54 EDT [facility] CO2 32 22 - 32 mEq/L 05/21/2017 20:54 EDT [facility] Blood specimen (specimen) BLOOD SPECIMEN / Unknown 05/21/2017 20:08 EDT 05/21/2017 20:28 EDT Maria Antonia Zimmerman MD CHEMISTRY & BLOOD GA S ORDERABLES [facility] [address] [place] [address] * PERMANENT PACEMAKER PROCEDURE (05/21/2017 19:42 EDT) Anatomical Region Laterality Modality Other 05/21/2017 19:4 2 EDT Narrative 05/21/2017 20:01 EDT *Cardiology* [address] [place] [address] Lead Revision Patient: David Mera ? Study Date: ?05/21/2017 ? Accession #: ? [id number] : ? 1950 Referring: Katia Mccallum Attending: [...] and the lead was extracted. A 7 Hungarian safety sheath was advanced over the wire [...] topical skin adhesive. IMPLANTED HARDWARE: Implanted device: SnapMy[employer] - [employer] [facility] - Serial number: [id number]. Implanted originally on 05-02-2017. LEAD PARAMETERS + + + + + Lead # ? 1 ? 1 ? 2 ? + + + + + Chamber ? RA ? RA ? RV ? + + + + + Date implanted ?? 05/02/2017 ? 05/21/2017 ? 05/02/2017 ? + + + + + Model ? [employer] Medtronic Select Raymond Sci 3742 ?? information ? 7738 ? Secure-59 [id number] ? + + + + + Serial number ?? [id number] ? [id number] ? [id number] ? + + + + + Location [...] Seng Rand MD - 05/21/2017 *Cardiology* [address] [place] [address] Lead Revision Patient: David Mera Study Date: [...] and the lead was extracted. A 7 Hungarian safety sheath was advanced over the wire [...] topical skin adhesive. IMPLANTED HARDWARE: Implanted device: Raymond Mathew - [employer] - Serial number: [id number]. Implanted originally on 05-02-2017. LEAD PARAMETERS + + + + + Lead # 1 1 2 + + + + + Chamber RA RA RV + + + + + Date implanted 05/02/2017 05/21/2017 05/02/2017 + + + + + Model [employer] Medtronic Select Raymond Sci 7742 information 7740 Secure-59 [id number] + + + + + Serial number [id number] + + + + + Location RA [...] be added FREE T4,TSH 05/21/2017 18:16 EDT [facility] Number for problems [id number] 05/21/2017 18:23 EDT [facility] Accession number [id number] 05/21/2017 18:23 EDT [facility] TOPOGRAPHY UNKNOWN / Unknown 05/21/2017 18:20 EDT 05/21/2017 18:22 EDT Jayesh Garcia MD HEMATOLOGY & PF4 O RDERABLES [facility] [address] [place] [address] * CREATININE, URINE RANDOM (05/21/2017 18:20 EDT) Creatinine, Urn Tiro 26.2 mg/dl 05/21/2017 21:25 EDT [facility] Urine specimen (specimen) URINE / Unknown 05/21/2017 18:20 EDT 05/21/2017 21:06 EDT Jayesh Garcia MD URINALYSIS ORDERAB LES Performing Organization Address [facility] Co de Phone Number [facility] [address] [place] [address] * PROTEIN, TOTAL, RANDOM, URINE (05/21/2017 18:20 EDT) Tot Prot,Ur Random 21 mg/dl 05/21/2017 21:25 EDT [facility] Urine specimen (specimen) URINE / Unknown 05/21/2017 18:20 EDT 05/21/2017 21:06 EDT Jayesh Garcia MD URINALYSIS ORDERAB LES Performing Organization Address [facility] de Phone Number [facility] [address] [place] [address] * ECHOCARDIOGRAM LIMITED (05/21/2017 18:19 EDT) Anatomical Region Laterality Modality Other 05/21/2017 18:1 9 EDT Narrative 05/22/2017 8:34 EDT *Interpreting Group:* *[facility]* [address] [place] [address] Date of study: 05/21/2017 Transthoracic Echocardiography M-mode, [...] stop time: ??07:33 PM. PERFORMING ?? [employer], LINING CLEANER ??Emilia Corey RDCS *PROCEDURE DATA* Procedure information: ??This study was interpreted by [facility]. Pertinent images and digital data are archived for permanent storage and are available for subsequent review. Study status: ??STAT. Transthoracic echocardiography. ??M-mode, limited 2D, limited spectral Doppler, and color Doppler. A Transthoracic Echocardiogram was performed. Scanning was performed from the parasternal, apical, and subcostal acoustic windows. Images were obtained using an MomentFeedq 13 cardiac ultrasound machine. Image quality was [...] Rubio MD - 05/22/2017 *Interpreting Group:* *[facility]* [address] [place] [id number] Date of study: 05/21/2017 Transthoracic Echocardiography M-mode, [...] Test stop time: 07:33 PM. PERFORMING [employer], LINING CLEANER Emilia Corey RDCS *PROCEDURE DATA* Procedure information: This study was interpreted by [facility]. Pertinent images and [...] 0.47 - 4.68 uIU/ml 05/21/2017 19:42 EDT [facility] BLOOD SPECIMEN / Unknown 05/21/2017 14:02 EDT 05/21/2017 14:12 EDT Maria Antonia Zimmerman MD CHEMISTRY & BLOOD GA S ORDERABLES [facility] [address] [place] [address] * T4 FREE (05/21/2017 14:02 EDT) T4, Free 1.5 0.8 - 2.2 ng/dl 05/21/2017 19:29 EDT [facility] BLOOD SPECIMEN / Unknown 05/21/2017 14:02 EDT 05/21/2017 14:12 EDT Maria Antonia Zimmerman MD CHEMISTRY & BLOOD GA S ORDERABLES Performing Organization Address City/[facility] Co de Phone Number [facility] [address] [place] [address] * (ABNORMAL) ELECTROLYTES (05/21/2017 14:02 EDT) Sodium 116(LL) 136 - 145 mEq/L 05/21/2017 14:53 EDT [facility] Potassium 4.1 3.5 - 5.0 mEq/L 05/21/2017 14:53 EDT [facility] Chloride 78(L) 96 - 110 mEq/L 05/21/2017 14:53 EDT [facility] CO2 28 22 - 32 mEq/L 05/21/2017 14:53 EDT [facility] Blood specimen (specimen) BLOOD SPECIMEN / Unknown 05/21/2017 14:02 EDT 05/21/2017 14:12 EDT Maria Antonia Zimmerman MD CHEMISTRY & BLOOD GA S ORDERABLES Performing Organization Address City/[facility]/ZIP Co de Phone Number [facility] [address] [place] [address] * ECHOCARDIOGRAM (05/21/2017 10:30 EDT) Anatomical Region Laterality Modality Other 05/21/2017 10:3 0 EDT Narrative 05/21/2017 10:48 EDT *Interpreting Group:* *[facility]* [address] [place] [address] Date of study: 05/21/2017 Transthoracic Echocardiography M-mode, [...] [employer], Ip ORDERING ? Maria Antonia Zimmerman LINING CLEANER ??Jose G Bauer REFERRING ?Katia Mccallum *PROCEDURE DATA* Procedure information: ??The patient was identified by two identifiers. This study was interpreted by [facility]. Pertinent images and [...] Andrade MD - 05/21/2017 *Interpreting Group:* *[facility]* [address] [place] [address] Date of study: 05/21/2017 Transthoracic Echocardiography M-mode, [...] PERFORMING [employer], Ip ORDERING Maria Antonia Zimmerman LINING CLEANER Jose G Bauer Katelyn Doran *PROCEDURE DATA* Procedure information: The patient was identified by two identifiers. This study was interpreted by [facility]. Pertinent images and [...] 117(LL) 136 - 145 mEq/L 05/21/2017 11:15 [facility] Potassium 3.7 3.5 - 5.0 mEq/L 05/21/2017 11:15 [facility] Chloride 77(L) 96 - 110 mEq/L 05/21/2017 11:15 [facility] CO2 30 22 - 32 mEq/L 05/21/2017 11:15 [facility] Blood specimen (specimen) BLOOD SPECIMEN / Unknown 05/21/2017 9:55 EDT 05/21/2017 10:59 EDT Maria Antonia Zimmerman MD CHEMISTRY & BLOOD GA S ORDERABLES [facility] [address] [place] [address] * EKG 12-LEAD (05/21/2017 7:12 EDT) 05/21/2017 7:12 EDT Narrative [facility] EKG - 05/23/2017 15:04 EDT ? [facility] ? Test Date: ?2017-05-21 Pat Name: ? DAVID MERA ?Department: ?? [address] ? Room: ? MW531 Gender: ? M ?Tube Blower: ?? [id number] : ?1950 ? Requested By: PRADIP MONET Order Number: [id number] ? Martha OAKES: ?? SENG PERSON SA, MD ? Measurements Intervals ?Procious ? Rate: ? 75 ? P: ?31 ND: ? 173 ?QRS: ?-73 QRSD: ? 183 [...] Seng Brody Sa, MD - 05/23/2017 [facility] Test Date: 2017-05-21 Pat Name: DAVID MERA Department: [place] [address] Room: [facility] Gender: M Tube Blower: [id number] : 1950 Requested By: PRADIP MONET Order Number: [id number] Martha MD: SENG ROBLEDO Measurements Intervals Procious Rate: 75 P: 31 ND: 173 QRS: -73 QRSD: 183 T: 174 [...] Antonia Zimmerman MD CARDIAC ECG ORDERABL ES [facility] EKG * INPATIENT ADD-ON (05/21/2017 6:55 EDT) Tests to be added MAGNESIUM 05/21/2017 6:53 EDT [facility] Number for problems [id number] 05/21/2017 7:10 EDT [facility] Accession number [id number] 05/21/2017 7:10 EDT [facility] TOPOGRAPHY UNKNOWN / Unknown 05/21/2017 6:55 EDT 05/21/2017 7:10 EDT Maria Antonia Zimmerman MD HEMATOLOGY & PF4 ORD ERABLES Performing Organization Address City/[facility] Co de Phone Number [facility] [address] [place] [address] * INPATIENT ADD-ON (05/21/2017 6:40 EDT) Tests to be added ALT,ALK PHOS,AST,T OTAL BILI,ALBUM IN 05/21/2017 6:38 EDT [facility] Number for problems [id number] 05/21/2017 6:50 EDT [facility] Accession number [id number] 05/21/2017 6:50 EDT [facility] TOPOGRAPHY UNKNOWN / Unknown 05/21/2017 6:40 EDT 05/21/2017 6:49 EDT Maria Antonia Zimmerman MD HEMATOLOGY & PF4 ORD ERABLES [facility] [address] [place] [address] * MAGNESIUM (05/21/2017 5:57 EDT) Magnesium 1.8 1.7 - 2.8 mg/dl 05/21/2017 7:53 EDT [facility] BLOOD SPECIMEN / Unknown 05/21/2017 5:57 EDT 05/21/2017 6:09 EDT Maria Antonia Zimmerman MD CHEMISTRY & BLOOD GA S ORDERABLES Performing Organization Address City/[facility]/ZIP Co de Phone Number [facility] [address] [place] [address] * BILIRUBIN, TOTAL (05/21/2017 5:57 EDT) Bilirubin, Total 0.6 <1.4 mg/dl 05/21/2017 7:30 EDT [facility] BLOOD SPECIMEN / Unknown 05/21/2017 5:57 EDT 05/21/2017 6:09 EDT Maria Antonia Zimmerman MD CHEMISTRY & BLOOD GA S ORDERABLES Performing Organization Address [facility]/ZIP Co de Phone Number [facility] [address] [place] [address] * AST (05/21/2017 5:57 EDT) Pathologist [facility] AST 33 15 - 46 U/L 05/21/2017 7:30 EDT [facility] BLOOD SPECIMEN / Unknown 05/21/2017 5:57 EDT 05/21/2017 6:09 EDT Maria Antonia Zimmerman MD CHEMISTRY & BLOOD GA S ORDERABLES Performing Organization Address [facility] Co de Phone Number [facility] [address] [place] [address] * ALT (05/21/2017 5:57 EDT) ALT 39 21 - 72 U/L 05/21/2017 7:30 EDT [facility] BLOOD SPECIMEN / Unknown 05/21/2017 5:57 EDT 05/21/2017 6:09 EDT Maria Antonia Zimmerman MD CHEMISTRY & BLOOD GA S ORDERABLES Performing Organization Address City/[facility]/ZIP Co de Phone Number [facility] [address] [place] [address] * ALKALINE PHOSPHATASE (05/21/2017 5:57 EDT) Total Alkaline Phosphatase 81 38 - 126 U/L 05/21/2017 7:30 EDT [facility] BLOOD SPECIMEN / Unknown 05/21/2017 5:57 EDT 05/21/2017 6:09 EDT Maria Antonia Zimmerman MD CHEMISTRY & BLOOD GA S ORDERABLES Performing Organization Address [facility] Co de Phone Number [facility] [address] [place] [address] * (ABNORMAL) ALBUMIN (05/21/2017 5:57 EDT) Albumin 3.0(L) 3.4 - 4.9 g/dl 05/21/2017 7:30 EDT [facility] BLOOD SPECIMEN / Unknown 05/21/2017 5:57 EDT 05/21/2017 6:09 EDT Maria Antonia Zimmerman MD CHEMISTRY & BLOOD GA S ORDERABLES Performing Organization Address [facility] Co de Phone Number [facility] [address] [place] [address] * (ABNORMAL) ELECTROLYTES (05/21/2017 5:57 EDT) Sodium 117(LL) 136 - 145 mEq/L 05/21/2017 6:47 EDT [facility] Potassium 3.5 3.5 - 5.0 mEq/L 05/21/2017 6:47 EDT [facility] Chloride 76(L) 96 - 110 mEq/L 05/21/2017 6:47 EDT [facility] CO2 31 22 - 32 mEq/L 05/21/2017 6:47 EDT [facility] Blood specimen (specimen) BLOOD SPECIMEN / Unknown 05/21/2017 5:57 EDT 05/21/2017 6:12 EDT Maria Antonia Zimmerman MD CHEMISTRY & BLOOD GA S ORDERABLES Performing Organization Address [facility]/ZIP Co de Phone Number [facility] [address] [place] [address] * (ABNORMAL) PROTIME (05/21/2017 5:57 EDT) Pro Time 16.3(H) 10.3 - 13.4 secs 05/21/2017 6:30 EDT [facility] Comment:NOTE NEW REFERENCE R ANTONIETA OF APR 03 2017 I.N.R. 1.4(H) 0.9 - 1.1 Ratio 05/21/2017 6:30 EDT [facility] Comment: Moderate Intensity Coumadin INR = 2.0-3.0 Adjustments in anticoagulant therapy dose should be based upon the INR and NOT the Pro Time. Blood specimen (specimen) BLOOD SPECIMEN / Unknown 05/21/2017 5:57 EDT 05/21/2017 6:09 EDT Maria Antonia Zimmerman MD HEMATOLOGY & PF4 ORD ERABLES Performing Organization Address [facility] Co de Phone Number [facility] [address] [place] [address] * HIV 1/2 ANTIGEN AND ANTIBODY, 4TH GENERATION (05/21/2017 5:57 EDT) [facility] HIV 1/2 Antibody Negative Negative 05/22/19 18 11:32 EDT [facility] Comment: Fourth generation assay performed on the Intoloopaur. If acute HIV-1 infection is suspected in a high risk patient, submit plasma specimen for HIV-1 RNA quantification test. Blood specimen (specimen) BLOOD SPECIMEN / Unknown 05/21/2017 5:57 EDT 05/21/2017 6:09 EDT Maria Antonia Zimmerman MD IMMUNOLOGY AND SEROL OGY ORDERABLES Performing Organization Address City/[facility] Co de Phone Number [facility] [address] [place] [address] * (ABNORMAL) BUN (05/21/2017 5:57 EDT) BUN 5(L) 10 - 26 mg/dl 05/21/2017 6:34 EDT [facility] Blood specimen (specimen) BLOOD SPECIMEN / Unknown 05/21/2017 5:57 EDT 05/21/2017 6:09 EDT Maria Antonia Zimmerman MD CHEMISTRY & BLOOD GA S ORDERABLES Performing Organization Address City/[facility] Co de Phone Number [facility] [address] [place] [address] * (ABNORMAL) CREATININE (05/21/2017 5:57 EDT) Creatinine 0.43(L) 0.66 - 1.25 mg/dl 05/21/2017 6:34 EDT [facility] GFR, Calculated 120 >60 ml/min/1.7 3m2 05/21/2017 6:34 EDT [facility] Comment: eGFR calculated using CKD-EPI equation for non Americans. Multiply eGFR by 1.16 for Americans. Blood specimen (specimen) BLOOD SPECIMEN / Unknown 05/21/2017 5:57 EDT 05/21/2017 6:09 EDT Maria Antonia Zimmerman MD CHEMISTRY & BLOOD GA S ORDERABLES Performing Organization Address City/[facility] Co de Phone Number [facility] [address] [place] [address] * (ABNORMAL) HEMAGRAM AND DIFFERENTIAL (05/21/2017 5:57 EDT) WBC 6.90 4.0 - 10.4 K/cmm 05/21/2017 6:30 EDT [facility] RBC 3.25(L) 4.36 - 5.78 M/cmm 05/21/2017 6:30 EDT [facility] Hemoglobin 10.9(L) 13.8 - 17.3 gm/dl 05/21/2017 6:30 EDT [facility] HCT 29.7(L) 39.5 - 50.2 % 05/21/2017 6:30 [facility] MCV 91 81 - 95 fl 05/21/2017 6:30 [facility] MCH 33.5(H) 27.6 - 33.0 pg 05/21/2017 6:30 [facility] MCHC 36.7(H) 32.8 - 36.4 gm/dl 05/21/2017 6:30 [facility] RDW-CV 10.6 <14.2 % 05/21/2017 6:30 [facility] RDW-SD 36.1 <46.0 fl 05/21/2017 6:30 [facility] PLT 266 141 - 377 K/cmm 05/21/2017 6:30 [facility] MPV 10.7 9.5 - 12.7 fl 05/21/2017 6:30 [facility] % Neutrophils 61.6 % 05/21/2017 6:30 [facility] % Lymphocytes 19.0 % 05/21/2017 6:30 [facility] % Monocytes 16.7 % 05/21/2017 6:30 [facility] % Eosinophils 1.6 % 05/21/2017 6:30 [facility] % Basophils 0.7 % 05/21/2017 6:30 [facility] % Immature Grans 0.4 % 05/21/2017 6:30 [facility] ABS Neutrophils 4.25 2.20 - 8.85 K/cmm 05/21/2017 6:30 [facility] ABS Lymphs 1.31 1.09 - 3.30 K/cmm 05/21/2017 6:30 [facility] ABS Monocytes 1.15(H) 0.1 - 0.8 K/cmm 05/21/2017 6:30 [facility] ABS Eosinophils 0.11 0.03 - 0.61 K/cmm 05/21/2017 6:30 [facility] ABS Basophils 0.05 0.01 - 0.11 K/cmm 05/21/2017 6:30 EDT [facility] ABS Immature Grans 0.03 0 - 0.06 K/cmm 05/21/2017 6:30 EDT [facility] Type of Diff: Automated 05/21/2017 6:30 EDT [facility] Blood specimen (specimen) BLOOD SPECIMEN / Unknown 05/21/2017 5:57 EDT 05/21/2017 6:09 EDT Maria Antonia Zimmerman MD PACKAGES & DNA PROBE ORDERABLES Performing Organization Address [facility] de Phone Number [facility] [address] [place] [address] * (ABNORMAL) ELECTROLYTES (05/21/2017 3:28 EDT) Sodium 116(LL) 136 - 145 mEq/L 05/21/2017 4:01 EDT [facility] Potassium 3.3(L) 3.5 - 5.0 mEq/L 05/21/2017 4:01 EDT [facility] Chloride 77(L) 96 - 110 mEq/L 05/21/2017 4:01 EDT [facility] CO2 31 22 - 32 mEq/L 05/21/2017 4:01 EDT [facility] Blood specimen (specimen) BLOOD SPECIMEN / Unknown 05/21/2017 3:28 EDT 05/21/2017 3:35 EDT Maria Antonia Zimmerman MD CHEMISTRY & BLOOD GA S ORDERABLES Performing Organization Address [facility] de Phone Number [facility] [address] [place] [address] * EKG 12-LEAD (05/21/2017 1:25 EDT) 05/21/2017 1:25 EDT Narrative [facility] EKG - 05/23/2017 10:35 EDT ? [facility] ? Test Date: ?2017-05-21 Pat Name: ? DAVID MERA ?Department: ?? [address] ? Room: ? MW531 Gender: ? M ?Tube Blower: ?? [id number] : ?1950 ? Requested By: PRADIP MONET Order Number: [id number] ? Reading MD: ?? PIERRE RUBIO MD ? Measurements Intervals ?Procious ? Rate: ? 75 ? P: ?13 ND: ? 160 ?QRS: ?-81 QRSD: ? 185 [...] Note Pierre Rubio MD - 05/23/2017 [facility] Test Date: 2017-05-21 Pat Name: DAVID MERA Department: [place] [address] Room: [facility] Gender: M Tube Blower: [id number] : 1950 Requested By: PRADIP MONET Order Number: [id number] Martha MD: PIERRE RUBIO MD Measurements Intervals Procious Rate: 75 P: 13 ND: 160 QRS: -81 QRSD: 185 T: 171 QT: 495 QTc: 556 Interpretive Statements SINUS RHYTHM WITH ATRIAL TRACKING and VENTRICULAR PACING Compared to ECG 05/03/2017 04:23:33 No significant changes I reviewed the tracing and have either agreed or edited the findings inthis report. Electronically Signed On 05-23-17 10:35:38 EDT by PIERRE YEBOAH. Maria Antonia Zimmerman MD CARDIAC ECG ORDERABL ES [facility] EKG * INPATIENT ADD-ON (05/21/2017 0:00 EDT) Tests to be added URINE OSM 05/20/2017 23:58 EDT [facility] Number for problems Not Given 05/21/2017 0:02 EDT [facility] Accession number [id number] 05/21/2017 0:02 EDT [facility] TOPOGRAPHY UNKNOWN / Unknown 05/21/2017 05/21/2017 0:02 EDT Maria Antonia Zimmerman MD HEMATOLOGY & PF4 ORD ERABLES Performing Organization Address City/[facility]/ZIP Co de Phone Number [facility] [address] [place] [address] * OSMOLALITY, URINE (05/20/2017 23:45 EDT) Osmolality, Ur 251 150 - 1,150 mos/kg 05/21/2017 0:15 EDT [facility] URINE / Unknown 05/20/2017 2 3:45 EDT 05/20/2017 23:55 EDT Laly Kim MD URINALYSIS ORDERRyan PFEIFFER Performing Organization Address [facility] Co de Phone Number [facility] [address] [place] [address] * SODIUM, URINE RANDOM (05/20/2017 23:45 EDT) Sodium, Ur 18.0 mEq/L 05/21/2017 0:18 EDT [facility] Urine specimen (specimen) URINE / Unknown 05/20/2017 23:45 EDT 05/20/2017 23:55 EDT Laly Kim MD URINALYSIS ORDERRyan PFEIFFER Performing Organization Address [facility] Co de Phone Number [facility] [address] [place] [address] * CREATININE, URINE RANDOM (05/20/2017 23:45 EDT) Creatinine, Urn Tiro 43.1 mg/dl 05/21/2017 0:18 EDT [facility] Urine specimen (specimen) URINE / Unknown 05/20/2017 23:45 EDT 05/20/2017 23:55 EDT Laly Kim MD URINALYSIS ORDERRyan PFEIFFER Performing Organization Address [facility]/ZIP Co de Phone Number [facility] [address] [place] [address] * POCT US CARDIAC (05/20/2017 22:45 EDT) Anatomical Region Laterality Modality Other 05/20/2017 22:4 5 EDT 05/20/2017 23:51 EDT Narrative 05/20/2017 23:51 EDT [facility] - Ultrasound Exam Date: 05/20/2017 Exam Type: POCT US CARDIAC Electronic Publisher: Laly Kim MD Attending: Laly Kim MD [...] exam was performed and interpreted by the [facility] ED Staff Procedure Note Laly Kim MD - 05/20/2017 [facility] - Ultrasound Exam Date: 05/20/2017 Exam Type: POCT US CARDIAC Electronic Publisher: Laly Kim MD Attending: Laly Kim MD [...] exam was performed and interpreted by the [facility] ED Staff Laly Kim MD IMG POCT US ORDER IRWIN * (ABNORMAL) BASIC METABOLIC PANEL (BMP) (05/20/2017 22:40 EDT) Sodium 116(LL) 136 - 145 mEq/L 05/20/2017 23:14 [facility] Potassium 3.6 3.5 - 5.0 mEq/L 05/20/2017 23:14 [facility] Chloride 74(L) 96 - 110 mEq/L 05/20/2017 23:14 [facility] CO2 32 22 - 32 mEq/L 05/20/2017 23:14 [facility] BUN 6(L) 10 - 26 mg/dl 05/20/2017 23:14 [facility] Creatinine 0.44(L) 0.66 - 1.25 mg/dl 05/20/2017 23:14 [facility] GFR, Calculated 119 >60 ml/min/1.7 3m2 05/20/2017 23:14 [facility] Comment: eGFR calculated using CKD-EPI equation for non Americans. Multiply eGFR by 1.16 for Americans. Calcium 8.7 8.5 - 10.5 mg/dl 05/20/2017 23:14 [facility] Calculated Calcium 9.2 8.5 - 10.5 mg/dl 05/20/2017 23:14 [facility] Glucose, Serum 108(H) 70 - 100 mg/dl 05/20/2017 23:14 [facility] Fasting? Unknown 05/20/2017 23:14 [facility] Blood specimen (specimen) BLOOD SPECIMEN / Unknown 05/20/2017 22:40 EDT 05/20/2017 22:58 EDT Laly Kim MD CHEMISTRY & BLOOD GAS ORDERABLES [facility] [address] [place] [address] documented in this encounter Visit Diagnoses Diagnosis [...] 05/02 documented in this encounter Care Teams Sporting Goods Sales Manager Relationship Specialty Start Date End Date Katia Stone, PABijalC [address] [place] [phone] PCP - General 05/02/17 documented as of this encounter
--- OUTSIDE RECORDS SUMMARY | 2023-12-15 14:26 | XMS_ITS | Encounter Summary ---
Author Organization [facility] Address [address] [place] [address] Care Team Providers Care Distance Learning Coordinator Name Role Phone Katia Stone PA-C Primary Care Provider [phone] Encounter Details Date Type Department Care Team (Late st Contact Info) Description 05/20/2017 Results Only Imaging [facility] [phone] Unknown, Provider, Social History Tobacco Use Types [...] on filedocumented in this encounter Care Teams Distance Learning Coordinator Relationship Specialty Start Date End Date Katia Stone PA-C [address] [place] [phone] PCP - General 05/02/17 documented as of this encounter
--- OUTSIDE RECORDS SUMMARY | 2023-12-15 14:26 | XMS_ITS | Encounter Summary ---
Author Organization [facility] [place] [place] [address] Care Team Providers Care Furniture Fabricator Name Role Phone Katia Stone Primary Care Provider [phone] Encounter Details Date Type Department Care Team (Latest Contact Info) Description 05/10/2023 10:00 AM EST - 05/10/2023 11:59 PM [facility] Hospital Encounter [place] [phone] Discharge Disposition: Home Social History Tobacco Use [...] AM EST Hospital Encounter Non[place] [phone] Arrived documented as of this encounter Procedures [...] filedocumented in this encounter Care Teams Furniture Fabricator Relationship Specialty Start Date End Date Katia Stone PA [address] [facility] [place] [phone] PCP - General General Internal Medicine 11/10/18 documented as of this encounter
--- OUTSIDE RECORDS SUMMARY | 2023-12-15 14:26 | XMS_ITS | Encounter Summary ---
Author Organization [facility] [place] [address] Care Team Providers Care Back Panel Padder Name Role Phone Katia Stone Primary Care Provider [phone] Encounter Details Date Type Department Care Team (Latest Contact Info) Description 08/08/2023 10:00 AM EDT - 08/08/2023 11:59 PM EDT Hospital Encounter Non-Invasive [place] [address] Discharge Disposition: Home Social History Tobacco Use [...] st Contact Info) Description 02/04/2024 10:00 AM [facility] Hospital Encounter Non-Invasive [place] [address] Arrived documented as of this encounter Procedures [...] on filedocumented in this encounter Care Teams Back Panel Padder Relationship Specialty Start Date End Date Katia Stone PA [address] [place] [id number] PCP - General General Internal Medicine 11/10/18 documented as of this encounter
--- OUTSIDE RECORDS SUMMARY | 2023-12-15 14:26 | XMS_ITS | Encounter Summary ---
Author Organization [facility] Address [address] [place] [address] Care Team Providers Care Snack Steward Name Role Phone None, Provider Primary Care Provider Katia Wilks PA-C Primary Care Provider [phone] Reason for Referral * (Routine) - Receiving Office to Obtain Authorization Specialty Diagnoses / Procedures Referred By Jael ho Referred To Contact Coleen Yañez NP [address] [place] [phone] Referral ID Status Reason Start Date Expiration Date Visits Requested Visits Authorized [id number] Receiving Office to Obtain Authorization Specialty Services [...] ho Referred To Contact Coleen Yañez NP [address] [place] [phone] Referral ID Status Reason Start Date Expiration Date Visits Requested Visits Authorized [id number] Receiving Office to Obtain Authorization Specialty Services Required 05/02/2017 1 1 Comments You must contact us if we have not contacted you or you have missed your scheduled appointment. If you have any nursing questions, please don't hesitate to call the Cardiac Arrhythmia Service at [facility] at [phone] or , extension [phone]. For any scheduling of appointments, please call [phone] or , extension [phone]. . * (Routine) - Receiving Office to Obtain Authorization Specialty Diagnoses / Procedures Referred By Contac t Referred To Contact Coleen Yañez NP [address] [phone] Referral ID Status Reason Start Date Expiration Date Visits Requested Visits Authorized [id number] Receiving Office to Obtain Authorization Specialty Services Required 05/02/2017 1 1 Comments Appointment on May 13, 2017 at 9 am for an incision site check with the nurse in the device clinic at [facility]. Phone [phone]. [facility] is located at [address] [place] [address] * (Routine) - Receiving Office to Obtain Authorization Specialty Diagnoses / Procedures Referred By Contac t Referred To Contact Coleen Yañez NP [address] [place] [phone] Referral ID Status Reason Start Date Expiration Date Visits Requested Visits Authorized [id number] Receiving Office to Obtain Authorization Specialty Services [...] scheduled at your first appointment. - [facility] [address] [facility] [place] -Clinics are also held in [facility], and [place], [place] and [facility]. If you live in those areas, we will make arrangements for follow-up appointments in one of those clinics.. Reason for Visit * Reason Comments Bradycardia Pt transferred from [place] with new complete heart block. VSS on arrival. CC DOBBS. Encounter Details Date Type Department Care Team (Late st Contact Info) Description 04/30/2017 17:08 EST - 05/04/2017 18:10 EST Hospital Encounter [facility] Cardiac/Telemetry Unit [address] [place] [id number] Bridget Fields MD [address] [place] [phone] Kenneth Hendrickson MD [address] [place] [phone] Houston Corey MD [address] [place] [phone] Heart block AV third degree (CMS-HCC) (HCC-CMS) [...] Principal/Final Diagnosis: Heart block AV third degree ([facility]) Additional Problems Managed in the Hospital Active Hospital Problems Diagnosis Date Noted ??? *Heart block AV third degree ([facility]) 04/30/2017 ??? Hypertensive urgency 05/01/2017 ??? Acute on chronic diastolic congestive heart failure ([facility]) 05/01/2017 Resolved Hospital Problems Diagnosis Date Noted Date Resolved No resolved problems to display. Principal Procedure: PPM 05/02/17 Secondary Procedures: none Hospital Course: David Farfan is a 66 y.o. male with no known PMH transferred from [facility] on 04/30/17 for complete heart block. 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 He complianed of 2-3 months of SOB which worsened 2-3 weeks prior to admission and reached critical point 2-3 days prior to admission when he had symptoms at rest with 3 pillow orthopnea and mild increased LE swelling prompting presentation to [facility]. On arrival to ED he was afebrile, HR 58, BP 190/103 withnegative labs. ECHO showed EF 65% with moderate concentric LVH, mild LA dilation and mild AST/TR. His HR dropped to the 30s prompting transfer to [facility]. On arrival here patient was asymptomatic [...] Visit with Caitie Atwood NP [facility] Cardiology - [facility] (--) [address] [place] [address] [place] [address] Follow-up appointments and procedures Pacemaker check Your [...] scheduled at your first appointment. - [facility] Cardiology is located at [address] in [place] -Clinics are also held in [facility], and [facility]. If you live in those [...] the nurse in the device clinic at [facility]. Phone [phone]. [facility] is located at [address] [place] [address] Authorizing Provider: oCleen Yañez NP ~Please note: You must contact us if we have not contacted you or you have missed your scheduled appointment. If you have any nursing questions, please don't hesitate to call the Cardiac Arrhythmia Service at [facility] at [phone] or , [phone]. For any scheduling of appointments, please call [phone] or , extension [phone]. . Authorizing Provider: Coleen Yañez NP Additional Information: Appointment on May 13, 2017 at 9 am for an incision site check with the nurse in the device clinic at the [facility]. . [facility] is located at [address] [place] [address] . You have an appointment with Katia Mccallmu PA-C at [facility] on 05/29/2017 at1:00 pm. If you have questions or need to reschedule your appointment, please call [phone]. Please arrive 15 minutes early to complete any necessary. Bring a copy of this AVS Summary with you. Cardiology follow up on June 16, 2017 at 2:[address] Torres at the [facility]. [facility] is located at [address] [place] [address]. Pacemaker device check on August 05, 2017 at 10 am at the [facility]. [facility] is located at [address] [place] [address]. Discharge Handoff Communication I called Katia Mccallum's [...] nurse in the device clinic at the [facility]. . [facility] is located at [address] [place] [address] . You have an appointment with Katia Mccallum PA-C at [facility] on 05/29/2017 at1:00 pm. If you have questions or need to reschedule your appointment, please call [phone]. Please arrive 15 minutes early to complete any necessary. Bring a copy of this AVS Summary with you. Cardiology follow up on June 16, 2017 at 2:[address] Torres at the [facility]. [facility] is located at [address] [place] [address]. Pacemaker device check on August 05, 2017 at 10 am at the [facility]. [facility] is located at [address] [place] [address]. * Discharge Instr - Other Orders* Melida [...] ask to be connected with a social service coordinator * Attachments The following attachments cannot be sent through Care Everywhere. * HEART FAILURE: AVOIDING TRIGGERS ([place]) documented in this encounter Medications at Time [...] - 05/04/2017 1500 EST I spoke with flotation tank operator CM regarding patient's lack of electricity at his home. She recommended I contact patient's PCP, [facility] for further assistance, but that no other action could be made on Friday. Was unable to leave message for their office today and efforts to contact them on05/02 were met with unreturned messages. I have instructed patient to call their office on Friday to be connected to social service coordinator. Amelia Partida DO Internal Medicine Resident PGY-3 [...] pick him up at [place] [employer] branch retail executive #[id number] * Amelia Partida MD - 05/04/2017 1204 [...] PMH admitted in transfer 04/30/17 from [facility] for asymptomatic complete heart block and [...] this morning. He reports he uses the [facility] in [place]. Review of Systems Pertinent items are noted [...] PMH admitted in transfer 04/30/17 from [facility] for asymptomatic complete heart block and [...] been connected with Katia Mccallum PA-C for [facility] primary care on 05/29 at 1pm Radha Lowery MD Internal Medicine PGY-2 Pager #[phone] 05/03/2017 13:15 Associated attestation - Houston Corey MD - 05/05/2017 1043 EST Attestation statement: I saw and examined the patient with the resident/fellow. I agree with the findings and plan of care documented in the resident's/fellow's note. Patient seen on 05/02/17 * Desi Villatoro RN - 05/02/2017 1000 EST 05/02: Patient has an appointment with Katia Mccallum PA-C at [facility] on 05/29/2017 at 1:00 to [...] PMH admitted in transfer 04/30/17 from [facility] for asymptomatic complete heart block and [...] been connected with Katia Mccallum PA-C for [facility] primary care on 05/29 at 1pm [...] FOR ADMISSION: Heart block AV third degree ([facility]) Patient understands reason for admission: PATIENT CONTACT INFO VERIFIED: Yes (Eva Rudolph [phone]) PATIENT ADDRESS VERIFIED: Yes LIVING ARRANGEMENTS AND ACCESSIBILITY ISSUES: Living Arrangements: Alone Levels: 1 Stairs to enter: 2 Handicap access: None Bathroom located on bedroom level?: Yes What in home social supports are available to the patient? Friends / neighbors. Patient lives alonein a mobile home in [place]. He has no immediate family and depends [...] For Finances: No TRANSPORTATION: Transportation: Family CULTURAL, ADVENT and/or LANGUAGE [...] Yes (Patient has gone to [facility] in the past to see Dr. Garcia who has since retired.) Specialists: None Type of Home Health Services: None DME Provider: None Pharmacy: [facility] - [address] - [place], [place] - [address] [facility] [id number] Home Health: None Other: POST HOSPITAL TRANSITION PLAN: Case management will continue to follow through transition to discharge. Anticipate discharge to home when medically stable. No needs are identified at this time. Patient said he has a friend who can provide transportation home. Ivelisse Rueda RN Case Manager #[id number] * Reba Marie, [facility] - 05/01/2017 1111 EST Transitions of Care - Pharmacy Admission Medication Reconciliation David Farfan is a 66 y.o. male admitted on 04/30/2017 for Heart block AV third degree ([facility]) Pharmacist Interventions/Recommendations: 1. Per patient report, the only medication he was taking prior to admission was ibuprofen 400mg daily for knee pain. Counseled patient to stop taking ibuprofen/NSAIDs as they are harmful to the heartand raise blood pressure-->recommended using acetaminophen for pain instead. 2. Confirmed patient would like to use [facility] in [place], [place] at discharge> please send all discharge prescriptions here. 3. Paged team with findings. Medication History Obtained from: Patient (Self) Medication reconciliation was performed. Discrepancies are noted in BOLD. Clarifications are noted in RED. Medications No prescriptions prior to admission. Additional Prior to Admission Aavq-how-Mnngxvz Products as noted by Patient/Family: Ibuprofen 400mg daily for knee pain Preferred Pharmacy: [facility] - [place], [place] Barriers to Learning: None apparent Barriers to Obtaining Medications: None apparent Barriers to Taking Medications: None apparent Please feel free to contact me or the Transitions of Care Pharmacy Team with questions or concerns. Thank you Reba Marie, PharmD, [facility] [phone] Pager: [phone] * Houston Corey MD - 05/01/2017 0729 [...] PMH admitted in transfer 04/30/17 from [facility] for asymptomatic complete heart block and [...] H&P Admit Date: 04/30/2017 PCP: Provider None Cabin Crew: none CC: complete heart block HPI: David Farfan is a 66 y.o. male with no known PMH who presents in transfer from [place] for complete heart block. Briefly, patient last saw a doctor approximately 12 years ago after he was admitted for VA rule outin [place]. He reports having a stress at that time though does not recall being told it was abnormal and was not discharged on any medications. He saw a line director once in follow-up and has not had [...] present to the ED. On arrival to [facility], patient was afebrile HR 58, RR [...] remote stress test 12 years ago in [place] Review of Systems A 10 point review of systems was discussed and is negative aside from what is noted in HPI. PMH: none PSH: benign tumor removal R forearm, L knee arthroscopy Family History: no history of early CAD/ VA or heart block Social History: Lifetime non-smoker, currently chews tobacco (1 can lasts 2-3 days). 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 He is currently [...] presents with ??? Bradycardia Pt transferred from [place] with new complete heart block. VSS on arrival. CC DOBBS. HPI HPI Comments: I, Maite Schmitt, am scribing for Kenneth Hendrickson MD while he/she is personallyperforming the service. Maite Schmitt 04/30/2017 17:19 David Farfan is a 66 y.o. male with a history of heart block AV third degree who presents to the ED with bradycardia. The patient was transferred from [place] with complaints of dyspnea on exertion and [...] ED with bradycardia.The patient was transferred from [place] with complaints of dyspnea on exertion and [...] W/ CARDS ACCEPTING. NOTE TAKEN DR HENDRICKSON ([facility]). documented in this encounter Miscellaneous Notes [...] AVS received. Pt left with son and wgxpotnz-tx-syz via wheelchair. BP 115/79 (BP Cuff Location: [...] Care - Don Alvarado RN - 05/02/2017 6776 EST Problem: Daily Care Plan Goals Goal: [...] Care - Meet Matias RN - 05/02/2017 1717 EST Problem: Daily Care Plan Goals Goal: [...] VSS, monitor tele D: Patient arrived to [place] [address] at 1900. Vital signs noted, BP 180s/80s. [...] EST) 05/09/2017 13:5 1 EST Scan 2 Cable Ferry Operator PROCEDURE/MINOR VELMA GICAL ORDERABLES * ECG REPORT - SCANNED (05/08/2017 8:27 EST) 05/08/2017 8:27 EST Scan 2 Cable Ferry Operator PROCEDURE/MINOR VELMA GICAL ORDERABLES * IMPLANT RECORD - SCANNED (05/08/2017 8:14 EST) 05/08/2017 8:14 EST Scan 2 Cable Ferry Operator PROCEDURE/MINOR VELMA GICAL ORDERABLES * ECG REPORT - SCANNED (05/08/2017 8:14 EST) 05/08/2017 8:14 EST Scan 2 Cable Ferry Operator PROCEDURE/MINOR VELMA GICAL ORDERABLES * ECG REPORT - SCANNED (05/08/2017 8:14 EST) 05/08/2017 8:14 EST Scan 2 Cable Ferry Operator PROCEDURE/MINOR VELMA GICAL ORDERABLES * IMPLANT RECORD - SCANNED (05/08/2017 8:14 EST) 05/08/2017 8:14 EST Scan 2 Cable Ferry Operator PROCEDURE/MINOR VELMA GICAL ORDERABLES * (ABNORMAL) GLUCOSE, GLUCOMETER (05/04/2017 7:41 EST) Glucose, Fingerstick 104(H) 70 - 100 mg/dl 05/04/2017 7:[address] [facility] Senior Policy Advisor ID [id number] 05/04/2017 7:[address] [facility] Comment:Test Performed by Nu rsing Services BLOOD SPECIMEN / Unknown 05/04/2017 7:41 EST 05/04/2017 7:42 EST Houston Corey MD CHEMISTRY & BLOO D GAS ORDERABLES Performing Organization Address City/[facility]/ZIP Co de Phone Number [facility] [address] [place] [address] * CREATININE (05/03/2017 5:42 EST) Creatinine 0.67 0.66 - 1.25 mg/dl 05/03/2017 6:[address] [facility] GFR, Calculated 100 >60 ml/min/1.7 3m2 05/03/2017 6:[address] [facility] Comment: eGFR calculated using CKD-EPI equation for non Americans. Multiply eGFR by 1.16 for Americans. Blood specimen (specimen) BLOOD SPECIMEN / Unknown 05/03/2017 5:42 EST 05/03/2017 6:20 EST Houston Corey MD CHEMISTRY & BLOO D GAS ORDERABLES Performing Organization Address [facility]/ZIP Co de Phone Number [facility] [address] [place] [address] * (ABNORMAL) BUN (05/03/2017 5:42 EST) BUN 8(L) 10 - 26 mg/dl 05/03/2017 6:[address] [facility] Blood specimen (specimen) BLOOD SPECIMEN / Unknown 05/03/2017 5:42 EST 05/03/2017 6:20 EST Houston Corey MD CHEMISTRY & BLOO D GAS ORDERABLES Performing Organization Address [facility] Co de Phone Number [facility] [address] [place] [address] * (ABNORMAL) ELECTROLYTES (05/03/2017 5:42 EST) Sodium 134(L) 136 - 145 mEq/L 05/03/2017 6:[address] [facility] Potassium 4.2 3.5 - 5.0 mEq/L 05/03/2017 6:56 [facility] Chloride 99 96 - 110 mEq/L 05/03/2017 6:56 [facility] CO2 26 22 - 32 mEq/L 05/03/2017 6:56 [facility] Blood specimen (specimen) BLOOD SPECIMEN / Unknown 05/03/2017 5:42 EST 05/03/2017 6:20 EST Houston Corey MD CHEMISTRY & BLOO D GAS ORDERABLES [facility] [address] [place] [address] * (ABNORMAL) HEMAGRAM (05/03/2017 5:42 EST) WBC 7.95 4.0 - 10.4 K/cmm 05/03/2017 6:46 [facility] RBC 3.97(L) 4.36 - 5.78 M/cmm 05/03/2017 6:46 [facility] Hemoglobin 13.3(L) 13.8 - 17.3 gm/dl 05/03/2017 6:46 [facility] HCT 38.4(L) 39.5 - 50.2 % 05/03/2017 6:46 [facility] MCV 97(H) 81 - 95 fl 05/03/2017 6:46 [facility] MCH 33.5(H) 27.6 - 33.0 pg 05/03/2017 6:46 [facility] MCHC 34.6 32.8 - 36.4 gm/dl 05/03/2017 6:46 [facility] RDW-CV 11.9 <14.2 % 05/03/2017 6:46 [facility] RDW-SD 42.4 <46.0 fl 05/03/2017 6:46 [facility] PLT 196 141 - 377 K/cmm 05/03/2017 6:46 [facility] MPV 12.6 9.5 - 12.7 fl 05/03/2017 6:46 [facility] Blood specimen (specimen) BLOOD SPECIMEN / Unknown 05/03/2017 5:42 EST 05/03/2017 6:20 EST Houston Corey MD HEMATOLOGY & PF4 ORDERABLES [facility] [address] [place] [address] * EKG 12-LEAD (05/03/2017 4:23 EST) 05/03/2017 4:[address] [facility] - 05/09/2017 13:47 EST ? [facility] ? Test Date: ?2017-05-03 Pat Name: ? DAVID FARFAN ?Department: ?? [facility] [address] ? Room: ? MW514 Gender: ? 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 [id number] : ?1950 ? Requested By: MARIO ALBERTO SCANLON Order Number: [id number] ? Martha OAKES: ?? SENG PERSON SA, MD ? Measurements Intervals ?[place] ? Rate: ? 75 ? P: ?51 OR: ? 172 ?QRS: ?-77 QRSD: ? 172 [...] MD - 05/09/[address] [facility] Test Date: 2017-05-03 Pat Name: DAVID FARFAN Department: JAME Chao Room: [facility] Gender: M Secretarial Teacher: [id number] : 1950 Requested By: MARIO ALBERTO SCANLON Order Number: [id number] Reading MD: SENG ROBLEDO Measurements Intervals [place] Rate: 75 P: 51 OR: 172 QRS: -77 QRSD: 172 T: 92 [...] Joesph Louie MD CARDIAC ECG ORDERABL ES [facility] EKG * ECG REPORT - SCANNED (05/02/2017 11:16 EST) 05/02/2017 11:1 6 EST Scan 2 Cable Ferry Operator PROCEDURE/MINOR VELMA GICAL ORDERABLES * PORTABLE [...] 10:10 EST) 05/02/2017 10:[address] [facility] - 05/08/2017 8:22 EST ? [facility] ? Test Date: ?2017-05-02 Pat Name: ? DAVID FARFAN ?Department: ?? [facility] ? Room: ? MW514 Gender: ? 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 [id number] : ?1950 ? Requested By: SHAKIRA Martinez Order Number: [id number] ? Martha OAKES: ?? LALY BARBER MD ? Measurements Intervals ?[place] ? Rate: ? 63 ? P: ?40 OR: ? 170 ?QRS: ?-72 QRSD: ? 180 ?T: ?86 QT: ? 492 ? QTc: ?504 ? Interpretive Statements DUAL CHAMBER PACER ELECTRONIC VENTRICULAR PACEMAKER I reviewed the tracing and have either agreed or edited the findings in this report. Electronically Signed On 05-08-17 08:22:30 EST by LALY BARBER MD. Procedure Note Laly Barber MD - 05/08/[address] [facility] Test Date: 2017-05-02 Pat Name: DAVID FARFAN Department: [place] [address] Room: [facility] Gender: M Secretarial Teacher: [id number] : 1950 Requested By: SHAKIRA Martinez Order Number: [id number] Martha MD: LALY BARBER MD Measurements Intervals [place] Rate: 63 P: 40 OR: 170 QRS: -72 QRSD: 180 T: 86 QT: 492 QTc: 504 Interpretive Statements DUAL CHAMBER PACER ELECTRONIC VENTRICULAR PACEMAKER I reviewed the tracing and have either agreed or edited the findings inthis report. Electronically Signed On 05-08-17 08:22:30 EST by LALY YAO. Tony Rosenberg MD CARDIAC ECG O RDERABLES [facility] EKG * PERMANENT PACEMAKER PROCEDURE (05/02/2017 10:00 EST) Anatomical Region Laterality Modality Other 05/02/2017 10:0 0 EST Narrative 05/02/2017 11:24 EST *Cardiology* [address] [place] [address] Device Implantation Patient: David Farfan ? Study Date: ?05/02/2017 ? Accession #: ? [id number] : ? 1950 Referring: Attending: Tony Rosenberg [...] HARDWARE: Implanted device: Clifford Appiah Serial number: [id number]. LEAD PARAMETERS + + + + Lead # ? 1 ? 2 ? + + + + Chamber ? RA ? RV ? + + + + Date implanted ?? 05/02/2017 ? 05/02/2017 ? + + + + Model information [employer] ? [employer] Ingevity ? ingevity mr ? MRI ? + + + + Serial number ? [id number] ? [id number] ? + + + + Location ? [...] Note Tony Rosenberg MD - 05/02/2017 *Cardiology* [address] [place] [address] Device Implantation Patient: David Farfan Study Date: [...] device: Clifford ESTEVEZ DR - Serial number: [id number]. LEAD PARAMETERS + + + + Lead # 1 2 + + + + Chamber RA RV + + + + Date implanted 05/02/2017 05/02/2017 + + + + Model information [employer] Mathew hood mr MRI + + + + Serial number [id number] + + + + Location RA appendage [...] 0.68 0.66 - 1.25 mg/dl 05/02/2017 7:26 [facility] GFR, Calculated 100 >60 ml/min/1.7 3m2 05/02/2017 7:26 [facility] Comment: eGFR calculated using CKD-EPI equation for non Americans. Multiply eGFR by 1.16 for Americans. Blood specimen (specimen) BLOOD SPECIMEN / Unknown 05/02/2017 6:11 EST 05/02/2017 6:47 EST Houston Corey MD CHEMISTRY & BLOO D GAS ORDERABLES [facility] [address] [place] [place] [address] * BUN (05/02/2017 6:11 EST) BUN 10 10 - 26 mg/dl 05/02/2017 7:26 [facility] Blood specimen (specimen) BLOOD SPECIMEN / Unknown 05/02/2017 6:11 EST 05/02/2017 6:47 EST Houston Corey MD CHEMISTRY & BLOO D GAS ORDERABLES Performing Organization Address [facility] Co de Phone Number [facility] [address] [place] [address] * (ABNORMAL) ELECTROLYTES (05/02/2017 6:11 EST) Sodium 135(L) 136 - 145 mEq/L 05/02/2017 7:26 [facility] Potassium 4.4 3.5 - 5.0 mEq/L 05/02/2017 7:26 [facility] Chloride 102 96 - 110 mEq/L 05/02/2017 7:26 [facility] CO2 23 22 - 32 mEq/L 05/02/2017 7:26 [facility] Blood specimen (specimen) BLOOD SPECIMEN / Unknown 05/02/2017 6:11 EST 05/02/2017 6:47 EST Houston Corey MD CHEMISTRY & BLOO D GAS ORDERABLES Performing Organization Address [facility]/ZIP Co de Phone Number [facility] [address] [place] [address] * (ABNORMAL) HEMAGRAM (05/02/2017 6:11 EST) WBC 6.92 4.0 - 10.4 K/cmm 05/02/2017 6:59 [facility] RBC 3.67(L) 4.36 - 5.78 M/cmm 05/02/2017 6:59 [facility] Hemoglobin 12.3(L) 13.8 - 17.3 gm/dl 05/02/2017 6:59 [facility] HCT 35.2(L) 39.5 - 50.2 % 05/02/2017 6:59 [facility] MCV 96(H) 81 - 95 fl 05/02/2017 6:59 [facility] MCH 33.5(H) 27.6 - 33.0 pg 05/02/2017 6:[address] [facility] MCHC 34.9 32.8 - 36.4 gm/dl 05/02/2017 6:[address] [facility] RDW-CV 11.9 <14.2 % 05/02/2017 6:59 [facility] RDW-SD 41.1 <46.0 fl 05/02/2017 6:[address] [facility] PLT 185 141 - 377 K/cmm 05/02/2017 6:59 [facility] MPV 12.9(H) 9.5 - 12.7 fl 05/02/2017 6:[address] [facility] Blood specimen (specimen) BLOOD SPECIMEN / Unknown 05/02/2017 6:11 EST 05/02/2017 6:47 EST Houston Corey MD HEMATOLOGY & PF4 ORDERABLES Performing Organization Address City/[facility] Co de Phone Number [facility] [address] [place] [address] * (ABNORMAL) TROPONIN I (05/01/2017 7:52 EST) Troponin I (ng/mL) 0.035(H) <0.034 ng/ml 05/01/2017 9:[address] [facility] Blood specimen (specimen) BLOOD SPECIMEN / Unknown 05/01/2017 7:52 EST 05/01/2017 8:19 EST Amelia Partida DO CHEMISTRY & BLOOD GAS ORDERABLES Performing Organization Address City/[facility]/ZIP Co de Phone Number [facility] [address] [place] [address] * MAGNESIUM (05/01/2017 6:01 EST) Magnesium 2.1 1.7 - 2.8 mg/dl 05/01/2017 6:[address] [facility] Blood specimen (specimen) BLOOD SPECIMEN / Unknown 05/01/2017 6:01 EST 05/01/2017 6:15 EST Amelia Partida DO CHEMISTRY & BLOOD GAS ORDERABLES Performing Organization Address [facility] Co de Phone Number [facility] [address] [place] [address] * CREATININE (05/01/2017 6:01 EST) Creatinine 0.67 0.66 - 1.25 mg/dl 05/01/2017 6:46 [facility] GFR, Calculated 100 >60 ml/min/1.7 3m2 05/01/2017 6:46 [facility] Comment: eGFR calculated using CKD-EPI equation for non Americans. Multiply eGFR by 1.16 for Americans. Blood specimen (specimen) BLOOD SPECIMEN / Unknown 05/01/2017 6:01 EST 05/01/2017 6:15 EST Houston Corey MD CHEMISTRY & BLOO D GAS ORDERABLES Performing Organization Address [facility] Co de Phone Number [facility] [address] [place] [address] * (ABNORMAL) BUN (05/01/2017 6:01 EST) BUN 6(L) 10 - 26 mg/dl 05/01/2017 6:46 [facility] Blood specimen (specimen) BLOOD SPECIMEN / Unknown 05/01/2017 6:01 EST 05/01/2017 6:15 EST Houston Corey MD CHEMISTRY & BLOO D GAS ORDERABLES Performing Organization Address [facility] Co de Phone Number [facility] [address] [place] [address] * (ABNORMAL) ELECTROLYTES (05/01/2017 6:01 EST) Sodium 134(L) 136 - 145 mEq/L 05/01/2017 6:46 [facility] Potassium 4.5 3.5 - 5.0 mEq/L 05/01/2017 6:46 [facility] Chloride 101 96 - 110 mEq/L 05/01/2017 6:46 [facility] CO2 23 22 - 32 mEq/L 05/01/2017 6:46 [facility] Blood specimen (specimen) BLOOD SPECIMEN / Unknown 05/01/2017 6:01 EST 05/01/2017 6:15 EST Houston Corey MD CHEMISTRY & BLOO D GAS ORDERABLES [facility] [address] [place] [address] * (ABNORMAL) HEMAGRAM (05/01/2017 6:01 EST) WBC 7.09 4.0 - 10.4 K/cmm 05/01/2017 6:27 [facility] RBC 3.76(L) 4.36 - 5.78 M/cmm 05/01/2017 6:27 [facility] Hemoglobin 12.7(L) 13.8 - 17.3 gm/dl 05/01/2017 6:27 [facility] HCT 36.4(L) 39.5 - 50.2 % 05/01/2017 6:27 [facility] MCV 97(H) 81 - 95 fl 05/01/2017 6:27 [facility] MCH 33.8(H) 27.6 - 33.0 pg 05/01/2017 6:27 [facility] MCHC 34.9 32.8 - 36.4 gm/dl 05/01/2017 6:27 [facility] RDW-CV 11.9 <14.2 % 05/01/2017 6:27 [facility] RDW-SD 42.1 <46.0 fl 05/01/2017 6:27 [facility] PLT 205 141 - 377 K/cmm 05/01/2017 6:27 [facility] MPV 12.8(H) 9.5 - 12.7 fl 05/01/2017 6:27 [facility] Blood specimen (specimen) BLOOD SPECIMEN / Unknown 05/01/2017 6:01 EST 05/01/2017 6:15 EST Houston Corey MD HEMATOLOGY & PF4 ORDERABLES Performing Organization Address [facility] Co de Phone Number [facility] [address] [place] [address] * LIPID PROFILE (INCLUDES CHOLESTEROL, TRIGLYCERIDES, HDL, LDL) (05/01/2017 6:01 EST) Cholesterol 148 mg/dl 05/01/2017 6:46 [facility] Comment: Desirable:<200 Borderline High:200-239 High:>sp=142 Triglycerides 65 mg/dl 05/01/2017 6:46 [facility] Comment: Normal:<150 Borderline High:150-199 High:200-499 Very High:>hd=805 HDL 39 mg/dl 05/01/2017 6:46 [facility] Comment: Low:<40 Normal:40-60 Desirable: >60 LDL, Calculated 96 mg/dl 8 6:46 [facility] Comment: Optimal:<100 Near Optimal:100-129 Borderline High:130-159 High:160-189 Very High:>pg=348 Chol/HDL Ratio 3.8 05/01/2017 6:46 [facility] Fasting? Unknown 05/01/2017 6:46 [facility] Non HDL Cholesterol 109 mg/dl 05/01/2017 6:46 [facility] Comment: Desirable:<130 Borderline:130-159 High: 160-189 Very High: >cl=592 Blood specimen (specimen) BLOOD SPECIMEN / Unknown 05/01/2017 6:01 EST 05/01/2017 6:15 EST Houston Corey MD CHEMISTRY & BLOO D GAS ORDERABLES Performing Organization Address City/[facility]/ZIP Co de Phone Number [facility] [address] [place] [address] * (ABNORMAL) TROPONIN I (05/01/2017 0:20 EST) Troponin I (ng/mL) 0.055(H) <0.034 ng/ml 05/01/2017 1:01 [facility] Blood specimen (specimen) BLOOD SPECIMEN / Unknown 05/01/2017 0:20 EST 05/01/2017 0:24 EST Amelia Partida DO CHEMISTRY & BLOOD GAS ORDERABLES Performing Organization Address [facility] Co de Phone Number [facility] [address] [place] [address] * HEMOGLOBIN A1C (05/01/2017 0:20 EST) Hemoglobin A1C 5.7 % 05/01/2017 10:05 [facility] Comment: Reference Range: <5.7% Normal 5.7-6.4% Prediabetes =>6.5% Diagnostic for diabetes (if confirmed) Goals for glycemic control in diabetes ADA 2017 For non adults with diabetes: ?? Target <7.5% For children and adolescents with type 1 diabetes: ?? Target <7.0% More or less stringent targets may be appropriate for individual patients. Est Avg Glucose 117 mg/dl 8 10:05 [facility] Comment: eAG represents the A1c result expressed as average glucose in mg/dl. Blood specimen (specimen) BLOOD SPECIMEN / Unknown 05/01/2017 0:20 EST 05/01/2017 0:24 EST Houston Corey MD CHEMISTRY & BLOO D GAS ORDERABLES Performing Organization Address [facility] Co de Phone Number [facility] [address] [place] [address] * (ABNORMAL) PROTIME (04/30/2017 19:33 EST) Pro Time 15.1(H) 10.3 - 13.4 secs 04/30/2017 20:08 [facility] Comment:NOTE NEW REFERENCE Vern FUNG OF APR 03 2017 I.N.R. 1.3(H) 0.9 - 1.1 Ratio 04/30/2017 20:08 [facility] Comment: Moderate Intensity Coumadin INR = 2.0-3.0 Adjustments in anticoagulant therapy dose should be based upon the INR and NOT the Pro Time. Blood specimen (specimen) BLOOD SPECIMEN / Unknown 04/30/2017 19:33 EST 04/30/2017 19:47 EST Houston Corey MD HEMATOLOGY & PF4 ORDERABLES Performing Organization Address City/[facility]/ZIP Co de Phone Number [facility] [address] [place] [address] * ED/URGENT CARE ADD-ON (04/30/2017 18:20 EST) Tests to be added LYME AB, 04/30/2017 18:[address] [facility] Comment:TSH Number for problems [id number] (ED) 04/30/2017 18:[address] [facility] TOPOGRAPHY UNKNOWN / Unknown 04/30/2017 18:20 EST 04/30/2017 18:23 EST Amelia Partida DO HEMATOLOGY & PF4 ORDERABLES Performing Organization Address City/[facility] Co de Phone Number [facility] [address] [place] [address] * OUTSIDE IMAGES ??? ECHO IMAGES (04/30/2017 17:24 EST) Anatomical Region Laterality Modality Other 04/30/2017 17:2 4 EST Narrative 04/30/2017 17:24 EST This is an outside study - there is no report. Procedure Note CAPACITOR TESTER, IMAGING - 04/30/2017 This is an outside study - there is no report. Provider Unknown IMG OTHER IMAGING OR DERABLES * EKG 12-LEAD (04/30/2017 16:43 EST) 04/30/2017 16:[address] [facility] EKG - 05/02/2017 11:12 EST ?[facility] Emergency ? Test Date: ?2017-04-30 Pat Name: ? DAVID FARFAN ?Department: ?? ED ? Room: ? AC12 Gender: ? 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 [id number] : ?1950 ? Requested By: DONNA HOOK L Order Number: [id number] ? Reading MD: ?? ANA LOBEL MD ? Measurements Intervals ?[place] ? Rate: ? 33 ? P: ? OR: ? 0 ?QRS: ?15 QRSD: ? 110 [...] Note Ana Marsh MD - 05/02/[address] [facility] Test Date: 2017-04-30 Pat Name: DAVID FARFAN Department: ED Room: [facility] Gender: M Secretarial Teacher: [id number] : 1950 Requested By: DONNA Cabral Order Number: [id number] Reading MD: ANA MARSH MD Measurements Intervals [place] Rate: 33 P: OR: 0 QRS: 15 QRSD: 110 T: 42 [...] Bridget Fields MD CARDIAC ECG ORDERAB LES [facility] EKG * TSH (04/30/2017 16:40 EST) TSH 1.34 0.47 - 4.68 uIU/ml 04/30/2017 19:24 [facility] BLOOD SPECIMEN / Unknown 04/30/2017 16:40 EST 04/30/2017 16:52 EST Bridget Fields MD CHEMISTRY & BLOOD G ORDERABLES [facility] [address] [place] [address] * LYME AB (04/30/2017 16:40 EST) Lyme AB Negative 05/01/2017 11:39 [facility] Comment:Reference Range: Neg ative BLOOD SPECIMEN / Unknown 04/30/2017 16:40 EST 04/30/2017 16:52 EST Bridget Fields MD IMMUNOLOGY AND SERO LOGY ORDERABLES Performing Organization Address [facility] Co de Phone Number [facility] [address] [place] [address] * (ABNORMAL) PROFILE ED CARDIAC PACK (04/30/2017 16:40 EST) Sodium 134(L) 136 - 145 mEq/L 04/30/2017 17:16 [facility] Potassium 4.2 3.5 - 5.0 mEq/L 04/30/2017 17:16 [facility] Chloride 105 96 - 110 mEq/L 04/30/2017 17:16 [facility] CO2 20(L) 22 - 32 mEq/L 04/30/2017 17:16 [facility] BUN 6(L) 10 - 26 mg/dl 04/30/2017 17:16 [facility] Creatinine 0.61(L) 0.66 - 1.25 mg/dl 04/30/2017 17:16 [facility] GFR, Calculated 104 >60 ml/min/1 .73m2 04/30/2017 17:16 [facility] Comment: eGFR calculated using CKD-EPI equation for non Americans. Multiply eGFR by 1.16 for Americans. Magnesium 1.7 1.7 - 2.8 mg/dl 04/30/2017 17:16 [facility] WBC 7.78 4.0 - 10.4 K/cmm 04/30/2017 17:12 [facility] RBC 3.72(L) 4.36 - 5.78 M/cmm 04/30/2017 17:12 [facility] Hemoglobin 12.6(L) 13.8 - 17.3 gm/dl 04/30/2017 17:12 [facility] HCT 35.7(L) 39.5 - 50.2 % 04/30/2017 17:12 [facility] MCV 96(H) 81 - 95 fl 04/30/2017 17:12 [facility] MCH 33.9(H) 27.6 - 33.0 pg 04/30/2017 17:12 [facility] MCHC 35.3 32.8 - 36.4 gm/dl 04/30/2017 17:12 [facility] RDW-CV 11.9 <14.2 % 04/30/2017 17:12 [facility] RDW-SD 41.5 <46.0 fl 04/30/2017 17:12 [facility] PLT 197 141 - 377 K/cmm 04/30/2017 17:12 [facility] MPV 12.5 9.5 - 12.7 fl 04/30/2017 17:12 [facility] % Neutrophils 62.1 % 04/30/2017 17:12 [facility] % Lymphocytes 23.9 % 04/30/2017 17:12 [facility] % Monocytes 11.6 % 04/30/2017 17:12 [facility] % Eosinophils 1.2 % 04/30/2017 17:12 [facility] % Basophils 0.9 % 04/30/2017 17:12 [facility] % Immature Grans 0.3 % 04/30/2017 17:12 [facility] ABS Neutrophils 4.84 2.20 - 8.85 K/cmm 04/30/2017 17:12 [facility] ABS Lymphs 1.86 1.09 - 3.30 K/cmm 04/30/2017 17:12 [facility] ABS Monocytes 0.90(H) 0.1 - 0.8 K/cmm 04/30/2017 17:12 [facility] ABS Eosinophils 0.09 0.03 - 0.61 K/cm 04/30/2017 17:12 [facility] ABS Basophils 0.07 0.01 - 0.11 K/cm 04/30/2017 17:12 [facility] ABS Immature Grans 0.02 0 - 0.06 K/cm 04/30/2017 17:12 [facility] Type of Diff: Automated 04/30/2017 17:12 [facility] Troponin I (ng/mL) 0.040(H) <0.034 ng/ml 04/30/2017 17:29 [facility] Glucose, Screening 100 70 - 100 mg/dl 04/30/2017 17:16 [facility] Hold Blue Top Sample for coagulation will be discarded after 4 hours 04/30/2017 17:04 [facility] Blood specimen (specimen) BLOOD SPECIMEN / Unknown 04/30/2017 16:40 EST 04/30/2017 16:52 EST Bridget Fields MD PACKAGES & DNA PROB E ORDERABLES Performing Organization Address City/State/[facility] Co de Phone Number [facility] [address] [place] [address] documented in this encounter Visit Diagnoses Diagnosis [...] 0820, Routine 0805 (Given - Provider: Sigrid cShwartz RN)0820 (Given - Provider: Sigrid Schwartz RN) [...] 04/201705/01/2017 documented in this encounter Care Teams Snack Steward Relationship Specialty Start Date End Date None, Provider PCP - General 04/30/17 05/01/17 Katia Stone, PABijalC [address] [place] [phone] PCP - General 05/02/17 documented as of this encounter
--- OUTSIDE RECORDS SUMMARY | 2023-12-15 14:26 | XMS_ITS | Encounter Summary ---
Author Organization [facility] [place] [address] Care Team Providers Care Supervisor Sanding Name Role Phone Katia Stone Primary Care Provider Encounter Details Date Type Department Care Team (Latest Contact Info) Description 11/06/2023 10:00 AM EDT - 11/06/2023 11:59 PM EDT Hospital Encounter [place] [address] Discharge Disposition: Home Social History Tobacco Use [...] st Contact Info) Description 02/04/2024 10:00 AM [facility] Hospital Encounter [place] [address] Arrived documented as of this encounter Procedures [...] filedocumented in this encounter Care Teams Supervisor Sanding Relationship Specialty Start Date End Date Katia Stone PA [address] [place] [phone] PCP - General General Internal Medicine 11/10/18 documented as of this encounter
--- OUTSIDE RECORDS SUMMARY | 2023-12-15 14:26 | XMS_ITS | Encounter Summary ---
Author Organization [facility] Address [address] [place] [address] Care Team Providers Care Farmworker [employer] Name Role Phone Katia Stone PA-C Primary Care Provider [phone] Encounter Details Date Type Department Care Team (Late st Contact Info) Description 05/20/2017 Results Only [facility] [phone] Unknown, Provider, Social History Tobacco Use Types [...] on filedocumented in this encounter Care Teams Farmworker [employer] Relationship Specialty Start Date End Date Katia Stone PA-C [address] [place] [phone] PCP - General 05/02/17 documented as of this encounter
--- OUTSIDE RECORDS SUMMARY | 2023-12-15 14:26 | XMS_ITS | Clinical Summary ---
Author Organization [facility] Address [facility] [place] [address] Care Team Providers Care Wheel Inspector Name Role Phone Katia Stone Primary Care [...] Date Diagnosed Date Pacemaker - dual lead [employer] pacemake r 09/24/2022 Overview (09/24/2022): [employer] Model # Serial # Generator (New) [employer] [id number] [id number] Atrial Lead (New) [employer] 7841 [id number] RV Lead [employer] [id number] 09/23/2022 - RA lead fx and RV lead with insulation breach - both capped and abandoned with new atrial and ventricular leads Placed as well as PG replacement for DIONICIO Complete heart block 09/23/2022 Encounters Date Type Department Care Team Description 11/06/2023 10:00 AM EDT - 11/06/2023 11:59 PM EDT Hospital Encounter [place] [address] Discharge Disposition: Home from Last [...] AM EST Hospital Encounter [place] [phone] Arrived Health Maintenance Due Date Last Done [...] series) 11/02/2023 Medical Devices Implanted Type Area [employer] Device Identifier Shelf Expiration Date Model / Serial / Lot Bsx: 7841: [id number] Implanted: by Dylan Story MD (Quantity not on file) Lead Heart [employer] 7841 / [id number] / Bsx: 7842: [id number] Implanted: by Dylan Story MD (Quantity not on file) Lead Heart [employer] 7842 / [id number] / Bsx: L311: [id number]/2 [id number] Implanted: by Dylan Story MD (Quantity not on file) Pacemaker Chest Wall [employer] L311 / [id number] / Advance Directives * Attempt Cardiopulmonary Resuscitation [...] full resusitation during periprocedureal period Care Teams Wheel Inspector Relationship Specialty Start Date End Date Katia Stone PA [address] [place] [phone] PCP - General General Internal Medicine 11/10/18
--- OUTSIDE RECORDS SUMMARY | 2023-12-15 14:27 | XMS_ITS | Encounter Summary ---
Author Organization [facility] Address [facility] [place] [address] Care Team Providers Care Automatic Brine Mixer Operator Name Role Phone Katia Stone Primary Care Provider Encounter Details Date Type Department Care Team (Latest Contact Info) Description 11/14/2021 - 11/14/2021 11:59 PM EDT Hospital Encounter Non-Invasive [place] [phone] Radha Hammond MD [facility] [place] [address] CHB (complete heart block) Discharge Disposition: Home [...] AM EST Hospital Encounter Non-Invasive [place] [phone] Arrived documented as of this encounter Procedures [...] pdf document Date of transmission: 11/14/21 Device enrollment manager: BSC Device type: DC PM Presenting rhythm: apvp AP 56% SLICING MACHINE TENDER 100% - no LV functional assessment in [...] complete documented in this encounter Care Teams Automatic Brine Mixer Operator Relationship Specialty Start Date End Date Katia Stone PA [address] [place] [phone] PCP - General General Internal Medicine 11/10/18 documented as of this encounter
--- OUTSIDE RECORDS SUMMARY | 2023-12-15 14:27 | XMS_ITS | Encounter Summary ---
Author Organization [facility] [place] Address [facility] [place] [address] Care Team Providers Care Wash Rack Operator Name Role Phone Katia Stone Primary Care Provider [phone] Reason for Visit * Auth/Cert (Routine) Specialty [...] OR PM) (WRVU 4.92) Dylan Story MD [facility] [place] [address] [facility] Referral ID Status Reason Start Date Expiration Date Visits Re quested Visits Authorized [id number] 1 1 Encounter Details Date Type Department Care Team (Latest Contact Info) Description 09/23/2022 11:49 AM EDT - 09/24/2022 1:21 PM EDT Hospital Encounter Heart and Vascular Unit Level 4 [place] [phone] Dylan Story MD [facility] [place] [place] [address] Pacemaker at end of battery life; Pacemaker [...] Tim Mera Patient Age: 71 y.o. Language: Citizen Of [place] Race: White Ethnicity: Not nor Admit date: 09/23/2022 Discharge date and time: 09/24/2022 1315 Attending Physician: Dylan Story MD Discharge Physician: Dylan Story MD Follow-up Recommendations for Providers: NEW - replaced [employer] dual lead pacemaker with new atrial and ventricular pacing leads. Old leads capped and abandoned. Stable for discharge to home Needs non-emergent ambulance for transport back to [facility] in [place], [place]. Outpatient follow up scheduled at [facility] for 10 post implant check. Inpatient Provider Contact Information: Cardiac Electrophysiology [phone], option #3 Discharge Diagnoses (Hospital Problems) and Secondary Diagnoses (Chronic Problems): Active Hospital Problems Diagnosis Complete heart block Pacemaker - dual lead [employer] pacemaker Resolved Hospital Problems No resolved problems to display. Operations/Major Procedures: Operations: Procedure(s): ELECTROPHYSIOLOGY PROCEDURE REMOVAL PPM GENERATOR W REPL PPM GEN; DUAL LEAD (WRVU 5.52) REPOSITIONING PREVIOUSLY PLACED ELECTRODE (ICD OR PM) (WRVU 4.92) 09/23/2022 History of Presentation: 71 y.o. male with a history of complete heart block s/p dual chamber permanent pacemaker April 2017 at [facility] course complicated by both pericardial effusion [...] RV pacing leads were implanted. A new [employer] pacemaker pulse generator was also implanted. [...] 106 (L): Data is abnormally low Treatments: Addiction Professional Model # Serial # Generator (New) [employer] L311 [id number] Atrial Lead (New) [employer] 7841 [id number] RV Lead [employer] 7742 880439 Old RA lead capped and abandoned Old RV lead found to have insulation deterioration and this lead was also capped and abandoned New RA and RV leads placed [employer] pulse generator implanted DDD @ 60/120 Discharge [...] by mouth 3 times daily. Generic drug: yzbprg-zlyvvxwd-aqlmxdh DR 1 capsule Refills: 0 fentaNYL 12 [...] incision. Make sure to use a cloth reeler (such as a towel) in between the [...] F. The office scheduling phone number is [phone]. ARM MOVEMENT RESTRICTIONS POST-IMPLANT - Do not [...] please call the Cardiac ElectrophysiologyTriage Nurse at [phone], option 3. General Instructions Future Appointments and Orders Future Appointments and Orders Future Appointments Provider Department Dept Phone 10/04/2022 11:00 AM Maite Lozano RN Cardiology at [facility] Arrive at: [facility] [phone] 12/27/2022 11:00 AM Maite Lozano RN Cardiology at [facility] Arrive at: [facility] [phone] Discharge References/Attachments None Dylan Story MD [facility] [...] incision. Make sure to use a cloth reeler (such as a towel) in between the [...] F. The office scheduling phone number is [phone]. ARM MOVEMENT RESTRICTIONS POST-IMPLANT - Do not [...] please call the Cardiac ElectrophysiologyTriage Nurse at [phone], option 3. documented in this encounter Medications [...] General Information Tim Mera 1950 Medicare Number: [id number] Transport Date: 09/24/22 (PCS is valid for round trips on this date and for all repetitive trips in the 60-day range as noted below.) Origin: [place] [address] Destination: [facility] [address] [place] [address] Is the patient's stay covered [...] is contraindicated by the patient's condition: medical fee clerk required. Patient unable to tolerate seated [...] van (i.e. seated during transport, without medical fee clerk or monitoring?): No 4) In addition to complete questions 1-3 above, please select any of the following conditions that apply: *Note: supporting documentation for any boxes checked must be maintained in the patient's medical records Moderate/severe pain on movement dog pound attendant required Section III - Signature of [...] 09/24/2022 10:54 AM EDT Office of Care Management/Folder Stitcher Operator Patient Name: Tim Mera : 1950 Patient is returning to a SNF bed at [facility]. [facility] arranged for a 1300hrs transport. Ambulance will need: Medicare ambulance form completed and signed (MD or Dance Historian RN/WORKERS' COMPENSATION HEARINGS OFFICER) Copy of patient demographics [place] Out of Hospital DNR/DNI order, if active No MD to MD report necessary. Please call Nursing Report to , ask for audio video technician. Info to accompany patient: Copies of Medication Administration Records and IV sheets for past 10 days. Plan: Folder Stitcher Operator will be available to the patient and Dance Historian-RN and/or Social Workerfor further assistance. Patient will be discharged to: [facility] [address] [place] [id number] Holly Urbina * Humberto Ashraf PA - 09/24/2022 10:31 AM EDT Inpatient Cardiac Electrophysiology Discharge Day Note Patient Name: Tim Mera Service: EP Responsible Attending: Dylan Story MD Reason for continued hospitalization: POD#1 pacemaker pulse generator and lead replacement Active Problems: Active Hospital Problems Diagnosis Complete heart block Pacemaker - dual lead [employer] pacemaker Resolved Hospital Problems No resolved problems to display. Interval History: 71 y.o. male with a history of complete heart block s/p dual chamber permanent pacemaker April 2017 at [facility] course complicated by both pericardial effusion [...] RV pacing leads were implanted. A new [employer] pacemaker pulse generator was also implanted. [...] Oral Daily loratadine 10 mg Oral Daily uxxxiu-vstlroxi-zfnxnmj DR 1 capsule Oral TID magnesium oxide [...] 0.00 - 0.04 x10(3)/mcL Pertinent Radiographic/Diagnostic Results: Addiction Professional Model # Serial # Generator (New) QR Wild L311 [id number] Atrial Lead (New) QR Wild 7841 2485527 RV Lead QR Wild 7742 189843 Old RA lead capped and abandoned Old RV lead found to have insulation deterioration and this lead was also capped and abandoned New RA and RV leads placed [employer] pulse generator implanted DDD @ 60/120 P wave: 2.2mV R wave: none above 30 Atrial impedance: 581 ohms RV impedance:777 ohms RA threshold: 0.7V @0.4ms RV threshold: 0.4V @ 0.4ms AP 38%; ATHLETIC EVENTS SCORER 100% No events Estimated battery longevity >8 years CXR: 09/24/2022 Left sided dual lead pacemaker 4 leads; two abandoned No pneumothorax +small bilateral pleural effusions Assessment: Tim Mera is a 71 y.o. male withhx of complete heart block, s/p dual lead [id number] at [facility], now with cell depletion, fractured atrial lead and unexpected insulation deteriorationof RV lead resulting placement of new RA and RV pacing leads along with a new pulse generator. Device function is excellent today. Plan: NEW - replaced [employer] dual lead pacemaker with new atrial and ventricular pacing leads. Old leads capped and abandoned. Stable for discharge to home Needs non-emergent ambulance for transport back to [facility] in [place], [place]. Outpatient follow up scheduled at [facility] for 10 post implant check. Provider: GIRISH Marin EP Procedural attending physician: Adiel Story MD EP Consult positional pager #[phone](EPMD) EP Device interrogation positional pager # [phone] * Rosie Ashraf RN - 09/23/2022 5:37 [...] chamber permanent pacemaker April 2017 at [facility] course complicated by both pericardial effusion [...] Chest Tube/Pleural Drain 07/10/2021 Vick Boss MD [facility] RAD CT SCAN CT PERITONEAL DRAINAGE 07/10/2021 CT Guided Drain Peritoneal 07/10/2021 Vick Boss MD [facility] RAD CT SCAN LAB VALUES: Laboratory Data: Lab Results Component Value Date WBC 9.4 09/23/2022 HGB 13.1 (L) 09/23/2022 HCT 39.5 (L) 09/23/2022 MCV 104.8 (H) 09/23/2022 ASSESSMENT AND PLAN: Tim Mera is a 71 y.o. male with a history of complete heart block s/p dual chamber permanent pacemaker April 2017 at [facility] course complicated by both pericardial effusion [...] completed. Vini Lucero MD Cardiac Electrophysiology Fellow [facility] Pager [phone] 09/23/2022 I met with the patient today [...] in agreement. Dr. Dylan Story, electrophysiology attending ([id number]) documented in this encounter Miscellaneous Notes * Care Management Discharge - Tim Casillas RN - 09/24/2022 11:30 AM EDT CARE MANAGEMENT FINAL DISCHARGE NOTE Chart reviewed, care reviewed with primary team and at interdisciplinary rounds. Patient is medically ready for discharge to [facility]. Needs for Transition of Care: Plan for discharge is: [facility] Outpatient Agency/Support Group Needs: None Agency Referrals & Follow-up Care: Contact information for follow-up [facility] [address] [place] [address] Transportation: ambulance Ambulance Finance Conversation Completed: 09/24/2022 Spoke to: Rdaha Chand GAS ENGINE PERFORMANCE ENGINEER at accepting facility Verbalized Understanding: Yes Functional [...] Operative Note Patient Name: Tim Mera : [id number] MR#: [id number] Case Date: 09/23/2022 Surgeon: Surgeon(s) and Role: [...] AM EST Hospital Encounter Non-Invasive [place] [address] Arrived Scheduled Orders Name Type [...] who have questions please contact the health client care consultant that requested your imaging first. ? Electronically signed by: Denilson Puentes MD, [facility] ([phone]), at 09/24/2022 8:47 AM Narrative 09/24/2022 8:47 [...] patients who have questions please contactthe health client care consultant that requested your imaging first. Electronically signed by: Denilson Puentes MD, [facility]([phone]), at 09/24/2022 8:47 AM Dylan Story MD IMG DX ORDERABLES * EKG 12 Lead (09/23/2022 5:18 PM EDT) Ventricular rate 74 BPM MUSE SYSTEM Atrial Rate 74 BPM MUSE SYSTEM P-R Interval 168 ms MUSE SYSTEM QRS Duration 164 ms MUSE SYSTEM Q-T Interval 458 ms MUSE SYSTEM QTC Calculated (Bezet) 508 ms MUSE SYSTEM Calculated P [place] 13 degrees MUSE SYSTEM Calculated R [place] -72 degrees MUSE SYSTEM Calculated T [place] 91 degrees MUSE SYSTEM INTERPRETATION Atrial-sense d ventricular- paced rhythm Abnormal ECG No previous ECGs available Confirmed by Bro Dasilva ([id number]) on 09/24/2022 9:15:33 AM MUSE SYSTEM 09/23/2022 [...] PATIENT NAME: Tim Mera PATIENT : 1950 SUPERINTENDENT GENERAL: Dylan Story MD FELLOW: Vini Lucero MD REFERRING PROVIDER: GIRISH Rai PROCEDURE DATE: 09/23/2022 PATIENT HISTORY: Mr. Mera is a 71 year old man with a history of complete heart block status post dual chamber [employer] pacemaker in 2018 with course complicated [...] the entire procedure. LEAD AND GENERATOR DATA: Addiction Professional Model # Serial # Generator (New) QR Wild L311 703717 Atrial Lead (New) [employer] 7841 [id number] RV Lead (new) [employer] 7842 8122062 REMOVED GENERATOR AND CAPPED ATRIAL LEAD: Addiction Professional Model # Serial # Generator (Explanted) QR Wild L111 343620 Atrial Lead (Capped) [place] [employer] 3830 [id number] ?? Ventricular lead (capped) [employer] 7742 966762 PACE/SENSE DATA: Sensed wave (mV) Threshold (V) [...] with new A and V leads (cpt 43310) Dylan Story MD S Cardiac Electrophysiology 09/24/2022 1:57 PM Procedure Note Dylan Story MD - 09/27/2022 Images from the original note were not included. PACEMAKER GENERATOR CHANGE AND REVISION OF RA AND RV LEADS PATIENT NAME: Tim Mera PATIENT : 1950 SUPERINTENDENT GENERAL: Dylan Story MD FELLOW: Vini Lucero MD REFERRING PROVIDER: GIRISH Rai PROCEDURE DATE: 09/23/2022 PATIENT HISTORY: Mr. Mera is a 71 year old man with a history of complete heart blockstatus post dual chamber [employer] pacemaker in 2018 with coursecomplicated by [...] the entire procedure. LEAD AND GENERATOR DATA: Addiction Professional Model # Serial # Generator (New) [employer] L311 189360 Atrial Lead (New) [employer] 7841 4329471 RV Lead (new) [employer] 7842 1177638 REMOVED GENERATOR AND CAPPED ATRIAL LEAD: Addiction Professional Model # Serial # Generator (Explanted) [employer] L111 606076 Atrial Lead (Capped) [employer] 3830 [id number] Ventricular lead (capped) [employer] 7742 197708 PACE/SENSE DATA: Sensed wave (mV) Threshold (V) [...] pacemaker with new A and V leads(cpt 86296) Dylan Story MD S Cardiac Electrophysiology 09/24/2022 1:57 PM Dylan Story MD EP PROCEDURE ORDERAB LES * (ABNORMAL) Differential, Automated (09/23/2022 12:05 PM EDT) Neutrophil % 62.1 % [facility] Neutrophil Absolute 5.82 1.70 - 6.10 x10(3)/mc L [facility] Lymph % 22.3 % [facility] Lymphocytes Abs 2.1 0.9 - 3.2 x10(3)/mc L [facility] Monocyte % 11.8 % [facility] Monocyte Abs 1.1(H) 0.3 - 0.9 x10(3)/mc L [facility] Eos % 2.1 % [facility] Eosinophils Abs 0.2 0.0 - 0.4 x10(3)/mc L [facility] Basophil % 1.1 % [facility] Baso Absolute 0.1 0.0 - 0.1 x10(3)/mc L [facility] Immature Gran % 0.60 % [facility] Comment: Immature granulocytes(IG's)percentage and absolute count will include metamyelocytes, myelocytes, and promyelocytes. Blood smears from CBCs yielding IG's will be scanned manually for concordance. If this scan disagrees with the automated IG or if promyelocytes are noted, a manual differential will be performed. Immature Gran Absolute 0.06(H) 0.00 - 0.04 x10(3)/mc L [facility] Blood 09/23/2022 12:0 5 PM EDT 09/23/2022 12:25 PM EDT Narrative Resulting Agency Comment Spec In Lab Dylan Story MD HEMATOLOGY ORDERABLE S Performing Organization Address City/[facility]/ZIP Co de Phone Number [facility] [place] [address] * (ABNORMAL) Hemogram (09/23/2022 12:05 PM EDT) White Blood Cell 9.4 4.0 - 9.5 x10(3)/[facility] Red Blood Cell 3.77(L) 4.58 - 5.54 x10(6)/[facility] Hemoglobin 13.1(L) 13.7 - 16.5 g/dL [facility] Hematocrit 39.5(L) 40.5 - 48.5 % [facility] Mean Cell Volume 104.8(H) 82.9 - 93.1 fL [facility] Mean Cell Hemoglobin 34.7(H) 27.5 - 32.1 pg [facility] Mean Cell Hemoglobin Concentration 33.2 32.0 - 35.7 g/dL [facility] Platelet 276 145 - 357 x10(3)/ L [facility] RDW Standard Deviation 47.7(H) 36.0 - 45.0 fL [facility] RDW coefficient of variation 12.3 11.4 - 13.8 % [facility] Mean Platelet Volume 10.4 7.6 - 12.9 fL [facility] NRBC% auto 0.0 % [facility] NRBC Absolute 0.000 0.000 - 0.000 x10(3)/mc L [facility] Blood 09/23/2022 12:0 5 PM EDT 09/23/2022 12:25 PM EDT Narrative Resulting Agency Comment Spec In Lab Dylan Story MD HEMATOLOGY ORDERABLE S Performing Organization Address City/[facility]/ZIP Co de Phone Number [facility] [place] [address] * (ABNORMAL) Basic Metabolic Panel (non-fasting) (09/23/2022 12:05 PM EDT) Glucose 106 65 - 199 mg/dL [facility] Comment:Diabetes: >=200 mg/d L plus symptoms Blood Urea Nitrogen 8(L) 10 - 20 mg/dL [facility] Creatinine 0.58(L) 0.80 - 1.50 mg/dL [facility] Sodium 130(L) 135 - 145 mmol/L [facility] Potassium 5.0 3.5 - 5.0 mmol/L [facility] Comment: Please note: ??Patients with WBC >100,000 may have falsely elevated Potassium levels. ??For accurate Potassium quantification in these patients send serum separator tube (gold top) for subsequent determinations. ??Contact the Clinical Chemistry Laboratory if there are any questions. Chloride 95(L) 98 - 107 mmol/L [facility] Carbon Dioxide 25 22 - 31 mmol/L [facility] Anion Gap 10 5 - 15 mmol/L [facility] Calcium 9.3 8.5 - 10.5 mg/dL [facility] Est Glomerular Filtration Rate 104 >=60 mL/min/1. 73 m?? [facility] Comment: This patient's estimated GFR was [...] In Lab Dylan Story MD CHEMISTRY ORDERABLES [facility] [place] [address] documented in this encounter Visit Diagnoses Diagnosis Complete heart block- Primary Atrioventricular block, complete Pacemaker at end of battery life Fitting and adjustment of cardiac pacemaker Pacemaker battery depletion Fitting and adjustment of cardiac pacemaker AV block Atrioventricular block, unspecified Complete heart block Atrioventricular block, complete Pacemaker - dual lead [employer] pacemaker Cardiac pacemaker in situ Pacemaker [...] Given 09/23/2022 2:11 PM EDT 400 mg qxuhpb-prrzyqwj-maosobr DR (Creon 24) 24,000-76,000 -120,000 unit per [...] 1411 (Given - Provider: Vini Lucero MD) qsxeev-uyxzllfu-yvmyene DR (Creon 24) 24,000-76,000 -120,000 unit per [...] Routine documented in this encounter Care Teams Wash Rack Operator Relationship Specialty Start Date End Date Katia Stone PA [address] [place] [phone] PCP - General General Internal Medicine 11/10/18 documented as of this encounter
--- OUTSIDE RECORDS SUMMARY | 2023-12-15 14:27 | XMS_ITS | Encounter Summary ---
[place] [address] Care Team Providers Care Bench Machine Operator Name Role Phone Katia Stone Primary Care Provider Encounter Details Date Type Department Care Team (Late st Contact Info) Description 11/25/2019 Telephone Cardiology at [address] [phone] Gayla Ochoa, RN Social History Tobacco Use [...] is requesting acceptance of a referral to [facility] Cardiology for Tim. States that Tim normally [...] AM EST Hospital Encounter Non-[place] [address] Arrived documented as of this encounter Visit Diagnoses Not on filedocumented in this encounter Care Teams Bench Machine Operator Relationship Specialty Start Date End Date Katia Stone PA [address] [place] [phone] PCP - General General Internal Medicine 11/10/18 documented as of this encounter
--- OUTSIDE RECORDS SUMMARY | 2023-12-15 14:27 | XMS_ITS | Encounter Summary ---
Author Organization [facility] [place] [address] Care Team Providers Care Mannequin Refinisher Name Role Phone Katia Stone Primary Care Provider [phone] Reason for Visit * Reason Onset Date Comments Pre Procedure Call 09/11/2022 Encounter Details Date Type Department Care Team (Late st Contact Info) Description 09/11/2022 Telephone Cardiology at [address] [phone] Patsy Gaffney, RN Pre Procedure Call Social [...] Generator Replacement + Atrial Lead Replacement EP PRIVATE INVESTIGATOR COORDINATION CHECKLIST Patient Name: Tim Mera - [facility]instructions also to be faxed) Patient Performing Yoghurt Maker: Dylan Story Referring Provider: Humberto Ashraf Date of Procedure: 09/23/22 Arrival Time/ Case Time: 12:00 pm / 1:00 pm Check In Location: Etymology Teacher Desk 4W Date Patient was Called: 09/11/22 Procedure: Generator Replacement + New Atrial Lead Placement Company: [id number] Type: DC PCM Orders: Yes Lab Orders: [...] overnight , understands that they will need driver license examiner on day of discharge Notified pt that Webber catheter may be placed on day of procedure depending on type & duration of case. documented in this encounter Plan of Treatment Upcoming Encounters Date Type Department Care Team (Late st Contact Info) Description 02/04/2024 10:00 AM [facility] Hospital Encounter [place] [address] Arrived documented as of this encounter Visit Diagnoses Not on filedocumented in this encounter Care Teams Mannequin Refinisher Relationship Specialty Start Date End Date Katia Stone PA [address] [place] [phone] PCP - General General Internal Medicine 11/10/18 documented as of this encounter
--- OUTSIDE RECORDS SUMMARY | 2023-12-15 14:27 | XMS_ITS | Encounter Summary ---
[place] [address] Care Team Providers Care Hardwood Finisher Name Role Phone Katia Stone Primary Care Provider Encounter Details Date Type Department Care Team (Latest Contact Info) Description 05/15/2022 10:00 AM EDT - 05/15/2022 11:59 PM EDT Hospital Encounter Non-[place] [phone] Discharge Disposition: Home Social History Tobacco Use [...] AM EST Hospital Encounter Non-Invasive [place] [phone] Arrived documented as of this encounter Visit Diagnoses Not on filedocumented in this encounter Care Teams Hardwood Finisher Relationship Specialty Start Date End Date Katia Stone PA [address] [facility] [place] [facility] [place] [phone] PCP - General General Internal Medicine 11/10/18 documented as of this encounter
--- OUTSIDE RECORDS SUMMARY | 2023-12-15 14:27 | XMS_ITS | Encounter Summary ---
Author Organization [facility] Address [facility] [place] [address] Care Team Providers Care Recyclable Materials Distributor Name Role Phone Katia Stone Primary Care Provider [phone] Encounter Details Date Type Department Care Team (Latest Contact Info) Description 11/11/2022 10:00 AM EDT - 11/11/2022 11:59 PM EDT Hospital Encounter Non-[place]vasive [place] [address] Discharge Disposition: Home Social History Tobacco Use [...] st Contact Info) Description 02/04/2024 10:00 AM [facility] Hospital Encounter Non-[place]vasive [place] [address] Arrived documented as of this encounter Procedures [...] on filedocumented in this encounter Care Teams Recyclable Materials Distributor Relationship Specialty Start Date End Date Katia Stone PA [address] [place] [phone] PCP - General General Internal Medicine 11/10/18 documented as of this encounter
--- OUTSIDE RECORDS SUMMARY | 2023-12-15 14:27 | XMS_ITS | Encounter Summary ---
Author Organization [facility] [place] [address] Care Team Providers Care Egg Sorter Name Role Phone Katia Stone Primary Care Provider Reason for Visit * Reason Onset Date Comments Other 09/24/2022 Cardiac Device I mplant Teaching/Education Encounter Details Date Type Department Care Team (Late st Contact Info) Description 09/24/2022 Notes Only Cardiology at [address] [address] Magi Lowery Other (Cardiac Device Implant Teaching/Education) Social History Tobacco Use Types Packs/Day Years Used Date Smoking Tobacco: Never Smokeless Tobacco: Never Alcohol Use Standard Drinks/Week Comments Yes 14 (1 standard drink = 0.6 oz pu re alcohol) [facility] Inpatient Questions Answer Date Recorded Does Anyone [...] to call the Cardiac Device Clinic at [phone] with any questions. Plan: Post op check: [...] AM EST Hospital Encounter Non-[place] [address] Arrived documented as of this encounter Visit Diagnoses Not on filedocumented in this encounter Care Teams Egg Sorter Relationship Specialty Start Date End Date Katia Stone PA [address] [facility] [place] [phone] PCP - General General Internal Medicine 11/10/18 documented as of this encounter
--- OUTSIDE RECORDS SUMMARY | 2023-12-15 14:27 | XMS_ITS | Encounter Summary ---
Author Organization [facility] Address [facility] [place] [address] Care Team Providers Care Director Supply Name Role Phone Katia Stone Primary Care Provider [phone] Encounter Details Date Type Department Care Team (Late st Contact Info) Description 09/11/2022 Orders Only Cardiology at [address] [phone] Dylan Story MD [facility] [place] [address] Pacemaker battery depletion; AV block Social History [...] st Contact Info) Description 02/04/2024 10:00 AM [facility] Hospital Encounter Non[place] [phone] Arrived documented as of this encounter Results * (ABNORMAL) Basic Metabolic Panel (non-fasting) (09/23/2022 12:05 PM EDT) [facility] Glucose 106 65 - 199 mg/dL [facility] Comment:Diabetes: >=200 mg/d L plus symptoms Blood Urea Nitrogen 8(L) 10 - 20 mg/dL [facility] Creatinine 0.58(L) 0.80 [...] Story MD CHEMISTRY ORDERABLES Performing Organization Address City/State/[facility] Co de Phone Number [facility] [address] documented in this encounter Visit Diagnoses Diagnosis Pacemaker battery depletion Fitting and adjustment of cardiac pacemaker AV block Atrioventricular block, unspecified documented in this encounter Care Teams Director Supply Relationship Specialty Start Date End Date Katia Stone PA [address] [place] [phone] PCP - General General Internal Medicine 11/10/18 documented as of this encounter
--- OUTSIDE RECORDS SUMMARY | 2023-12-15 14:27 | XMS_ITS | Encounter Summary ---
Author Organization [facility] Address [facility] [place] [address] Care Team Providers Care Winding Rack Operator Name Role Phone Katia Stone Primary Care Provider [phone] Reason for Visit * Auth/Cert (Routine) Specialty [...] OR PM) (WRVU 4.92) Dylan Story MD [facility] [place] [address] [facility] Referral ID Status Reason Start Date Expiration Date Visits Re quested Visits Authorized [id number] 1 1 Encounter Details Date Type Department Care Team (Late st Contact Info) Description 09/23/2022 12:06 PM EDT - 09/23/2022 2:36 PM EDT Surgery [place] [address] Dylan Story MD [facility] [place] [address] ELECTROPHYSIOLOGY PROCEDURE Social History Tobacco Use Types Packs/Day Years Used Date Smoking Tobacco: Never Smokeless Tobacco: Never Tobacco Cessation:Counseling Given: Not Answered Alcohol Use Standard Drinks/Week Comments Yes 14 (1 standard drink = 0.6 oz pu re alcohol) [facility] Inpatient Questions Answer Date Recorded [...] Tim Mera Patient Age: 71 y.o. Language: Bermudian Race: White Ethnicity: Not nor Admit date: 09/23/2022 Discharge date and time: 09/24/2022 1315 Attending Physician: Dylan Story MD Discharge Physician: Dylan Story MD Follow-up Recommendations for Providers: NEW - replaced [employer] [place] [employer] dual lead pacemaker with new atrial and ventricular pacing leads. Old leads capped and abandoned. Stable for discharge to home Needs non-emergent ambulance for transport back to [facility] in [place], [place]. Outpatient follow up scheduled at [facility] for 10 post implant check. Inpatient Provider Contact Information: Cardiac Electrophysiology [phone], option #3 Discharge Diagnoses (Hospital Problems) and Secondary Diagnoses (Chronic Problems): Active Hospital Problems Diagnosis Complete heart block Pacemaker - dual lead [employer] [place] [employer] pacemaker Resolved Hospital Problems No resolved problems to display. Operations/Major Procedures: Operations: Procedure(s): ELECTROPHYSIOLOGY PROCEDURE REMOVAL PPM GENERATOR W REPL PPM GEN; DUAL LEAD (WRVU 5.52) REPOSITIONING PREVIOUSLY PLACED ELECTRODE (ICD OR PM) (WRVU 4.92) 09/23/2022 History of Presentation: 71 y.o. male with a history of complete heart block s/p dual chamber permanent pacemaker April 2017 at [facility] course complicated by both pericardial effusion [...] RV pacing leads were implanted. A new [place] [employer] pacemaker pulse generator was also implanted. [...] 106 (L): Data is abnormally low Treatments: Electronic Sales And Service Technician Model # Serial # Generator (New) [place] Sci [id number] [id number] Atrial Lead (New) [place] Sci 7841 [id number] RV Lead [place] Sci 7742 066721 Old RA lead capped and abandoned Old RV lead found to have insulation deterioration and this lead was also capped and abandoned New RA and RV leads placed Walling[employer]brid Pay[employer] pulse generator implanted DDD @ 60/120 Discharge [...] by mouth 3 times daily. Generic drug: cytshu-vszgatnl-mgcsjge DR 1 capsule Refills: 0 fentaNYL 12 [...] the incision. Make sure to use a knitted cloth examiner (such as a towel) in between the [...] F. The office scheduling phone number is [phone]. ARM MOVEMENT RESTRICTIONS POST-IMPLANT - Do not [...] please call the Cardiac ElectrophysiologyTriage Nurse at [phone], option 3. General Instructions Future Appointments and Orders Future Appointments and Orders Future Appointments Provider Department Dept Phone 10/04/2022 11:00 AM Maite Lozano RN Cardiology at [facility] Arrive at: Door Cutter Area [phone] 12/27/2022 11:00 AM Maite Lozano RN Cardiology at [facility] Arrive at: [facility] [phone] Discharge References/Attachments None Dylan Story MD [facility] [...] the incision. Make sure to use a knitted cloth examiner (such as a towel) in between the [...] F. The office scheduling phone number is [phone]. ARM MOVEMENT RESTRICTIONS POST-IMPLANT - Do not [...] please call the Cardiac ElectrophysiologyTriage Nurse at [phone], option 3. documented in this encounter Medications [...] General Information Tim Mera 1950 Medicare Number: [id number] Transport Date: 09/24/22 (PCS is valid for round trips on this date and for all repetitive trips in the 60-day range as noted below.) Origin: [place] [address] Destination: [facility] [address] [place] [address] Is the patient's stay covered under Medicare [...] means is contraindicated by the patient's condition: emergency medical technician/driver required. Patient unable to tolerate seated position [...] wheelchair van (i.e. seated during transport, without emergency medical technician/driver or monitoring?): No 4) In addition to complete questions 1-3 above, please select any of the following conditions that apply: *Note: supporting documentation for any boxes checked must be maintained in the patient's medical records Moderate/severe pain on movement plant attendant or assistant operator required Section III - Signature of Physician [...] 09/24/2022 10:54 AM EDT Office of Care Management/Edger Machine Operator Patient Name: Tim Mera : 1950 Patient is returning to a SNF bed at [facility]. [facility] arranged for a 1300hrs transport. Ambulance will need: Medicare ambulance form completed and signed (MD or Pewter Fabricator RN/CLINICAL LAB ASSISTANT) Copy of patient demographics [place] Out [facility] Hospital DNR/DNI order, if active No MD to MD report necessary. Please call Nursing Report to , ask for biofuels technology development manager. Info to accompany patient: Copies of Medication Administration Records and IV sheets for past 10 days. Plan: Edger Machine Operator will be available to the patient and Pewter Fabricator-RN and/or Social Workerfor further assistance. Patient will be discharged to: [facility] [address] [place] [address] Paco Haider, Edger Machine Operator * Humberto Ashraf PA - 09/24/2022 10:31 AM EDT Inpatient Cardiac Electrophysiology Discharge Day Note Patient Name: Tim Mera Service: EP Responsible Attending: Dylan Story MD Reason for continued hospitalization: POD#1 pacemaker pulse generator and lead replacement Active Problems: Active Hospital Problems Diagnosis Complete heart block Pacemaker - dual lead [employer] [place] [employer] pacemaker Resolved Hospital Problems No resolved problems to display. Interval History: 71 y.o. male with a history of complete heart block s/p dual chamber permanent pacemaker April 2017 at [facility] course complicated by both pericardial effusion [...] RV pacing leads were implanted. A new [place] [employer] pacemaker pulse generator was also implanted. [...] Oral Daily loratadine 10 mg Oral Daily amspoq-iycjvadm-mmonula DR 1 capsule Oral TID magnesium oxide [...] 0.00 - 0.04 x10(3)/mcL Pertinent Radiographic/Diagnostic Results: Electronic Sales And Service Technician Model # Serial # Generator (New) netomat Sci [id number] [id number] Atrial Lead (New) [place] ELERTS 7841 3411347 RV Lead [place] Sci 7742 647431 Old RA lead capped and abandoned Old RV lead found to have insulation deterioration and this lead was also capped and abandoned New RA and RV leads placed [employer] pulse generator implanted DDD @ 60/120 P wave: 2.2mV R wave: none above 30 Atrial impedance: 581 ohms RV impedance:777 ohms RA threshold: 0.7V @0.4ms RV threshold: 0.4V @ 0.4ms AP 38%; INCIDENT RESPONSE ANALYST 100% No events Estimated battery longevity >8 years CXR: 09/24/2022 Left sided dual lead pacemaker 4 leads; two abandoned No pneumothorax +small bilateral pleural effusions Assessment: Tim Mera is a 71 y.o. male withhx of complete heart block, s/p dual lead [id number] at [facility], now with cell depletion, fractured atrial lead and unexpected insulation deteriorationof RV lead resulting placement of new RA and RV pacing leads along with a new pulse generator. Device function is excellent today. Plan: NEW - replaced [employer] [place] [employer] dual lead pacemaker with new atrial and ventricular pacing leads. Old leads capped and abandoned. Stable for discharge to home Needs non-emergent ambulance for transport back to [facility] in [place], [place]. Outpatient follow up scheduled at [facility] for 10 post implant check. Provider: GIRISH Marin EP Procedural attending physician: Adiel Story MD EP Consult positional pager #[phone](EPMD) EP Device interrogation positional pager # [phone] * Rosie Ashraf RN - 09/23/2022 5:37 [...] dual chamber permanent pacemaker April 2017 at [facility] course complicated by both pericardial effusion [...] Chest Tube/Pleural Drain 07/10/2021 Vick Boss MD [facility] RAD CT SCAN CT PERITONEAL DRAINAGE 07/10/2021 CT Guided Drain Peritoneal 07/10/2021 Vick Boss MD [facility] RAD CT SCAN LAB VALUES: Laboratory Data: Lab Results Component Value Date WBC 9.4 09/23/2022 HGB 13.1 (L) 09/23/2022 HCT 39.5 (L) 09/23/2022 MCV 104.8 (H) 09/23/2022 ASSESSMENT AND PLAN: Tim Mera is a 71 y.o. male with a history of complete heart block s/p dual chamber permanent pacemaker April 2017 at [facility] course complicated by both pericardial effusion [...] completed. Vini Lucero MD Cardiac Electrophysiology Fellow [facility] Pager [phone] 09/23/2022 I met with the patient today [...] in agreement. Dr. Dylan Story, electrophysiology attending ([id number]) documented in this encounter Miscellaneous Notes * Care Management Discharge - Tim Casillas RN - 09/24/2022 11:30 AM EDT CARE MANAGEMENT FINAL DISCHARGE NOTE Chart reviewed, care reviewed with primary team and at interdisciplinary rounds. Patient is medically ready for discharge to [facility]. Needs for Transition of Care: Plan for discharge is: Halfway Facility / Swing Outpatient Agency/Support Group Needs: None Agency Referrals & Follow-up Care: Contact information for follow-up [facility] [address] [place] [address] Transportation: ambulance Ambulance Finance Conversation Completed: 09/24/2022 Spoke to: Radha Chand PROTOTYPE SPECIAL BUILD at accepting facility Verbalized Understanding: Yes Functional [...] Operative Note Patient Name: Tim Mera : [id number] MR#: [id number] Case Date: 09/23/2022 Surgeon: Surgeon(s) and Role: [...] AM EST Hospital Encounter Non-[place] [address] Arrived Scheduled Orders Name Type Priority Associated [...] who have questions please contact the health post acute care nurse that requested your imaging first. ? Electronically signed by: Denilson Puentes MD, [facility] ([phone]), at 09/24/2022 8:47 AM Narrative 09/24/2022 8:47 [...] patients who have questions please contactthe health post acute care nurse that requested your imaging first. Electronically signed by: Denilson Puentes MD, [facility]([phone]), at 09/24/2022 8:47 AM Dylan Story MD IMG DX ORDERABLES * EKG 12 Lead (09/23/2022 5:18 PM EDT) Ventricular rate 74 BPM MUSE SYSTEM Atrial Rate 74 BPM MUSE SYSTEM P-R Interval 168 ms MUSE SYSTEM QRS Duration 164 ms MUSE SYSTEM Q-T Interval 458 ms MUSE SYSTEM QTC Calculated (Bezet) 508 ms MUSE SYSTEM Calculated P [place] 13 degrees MUSE SYSTEM Calculated R [place] -72 degrees MUSE SYSTEM Calculated T [place] 91 degrees MUSE SYSTEM INTERPRETATION Atrial-sense d ventricular- paced rhythm Abnormal ECG No previous ECGs available Confirmed by Bro Dasilva ([id number]) on 09/24/2022 9:15:33 AM MUSE SYSTEM 09/23/2022 [...] PATIENT NAME: Tim Mera PATIENT : 1950 TICKET PRINTER AND TAGGER: Dylan Story MD FELLOW: Vini Lucero MD REFERRING PROVIDER: GIRISH Rai PROCEDURE DATE: 09/23/2022 PATIENT HISTORY: Mr. Mera is a 71 year old man with a history of complete heart block status post dual chamber [place] [employer] pacemaker in 2018 with course complicated [...] the entire procedure. LEAD AND GENERATOR DATA: Electronic Sales And Service Technician Model # Serial # Generator (New) ImmuVen L311 [id number] Atrial Lead (New) [place] ELERTS 7841 5797325 RV Lead (new) [place] ELERTS 7842 6717210 REMOVED GENERATOR AND CAPPED ATRIAL LEAD: Electronic Sales And Service Technician Model # Serial # Generator (Explanted) ImmuVen L111 054739 Atrial Lead (Capped) LookStattronic 3830 [id number] ?? Ventricular lead (capped) Hybrid Paytech 7742 629601 PACE/SENSE DATA: Sensed wave (mV) Threshold (V) [...] with new A and V leads (cpt 12233) Dylan Story MD S Cardiac Electrophysiology 09/24/2022 1:57 PM Procedure Note Dylan Story MD - 09/27/2022 Images from the original note were not included. PACEMAKER GENERATOR CHANGE AND REVISION OF RA AND RV LEADS PATIENT NAME: Tim Mera PATIENT : 1950 TICKET PRINTER AND TAGGER: Dylan Story MD FELLOW: Vini Lucero MD REFERRING PROVIDER: GIRISH Rai PROCEDURE DATE: 09/23/2022 PATIENT HISTORY: Mr. Mera is a 71 year old man with a history of complete heart blockstatus post dual chamber [place] [employer] pacemaker in 2018 with coursecomplicated by [...] the entire procedure. LEAD AND GENERATOR DATA: Electronic Sales And Service Technician Model # Serial # Generator (New) [place] ELERTS L311 004024 Atrial Lead (New) [place] ELERTS 7841 4848405 RV Lead (new) [place] ELERTS 7842 7518765 REMOVED GENERATOR AND CAPPED ATRIAL LEAD: Electronic Sales And Service Technician Model # Serial # Generator (Explanted) [place] ELERTS L111 383487 Atrial Lead (Capped) Medtronic 3830 [id number] Ventricular lead (capped) Hybrid Paytech 7742 484777 PACE/SENSE DATA: Sensed wave (mV) Threshold (V) [...] pacemaker with new A and V leads(cpt 02652) Dylan Story MD [facility] Cardiac Electrophysiology 09/24/2022 1:57 PM Dylan Story MD EP PROCEDURE ORDERAB LES * (ABNORMAL) Differential, Automated (09/23/2022 12:05 PM EDT) Neutrophil % 62.1 % [facility] Neutrophil Absolute 5.82 1.70 - 6.10 x10(3)/mc L [facility] Lymph % 22.3 % [facility] Lymphocytes Abs 2.1 0.9 - 3.2 x10(3)/mc L [facility] Monocyte % 11.8 % [facility] Monocyte Abs 1.1(H) 0.3 - 0.9 x10(3)/mc L [facility] Eos % 2.1 % [facility] Eosinophils Abs 0.2 0.0 - 0.4 x10(3)/mc L [facility] Basophil % 1.1 % [facility] Baso Absolute 0.1 0.0 - 0.1 x10(3)/mc L [facility] Immature Gran % 0.60 % [facility] Comment: Immature granulocytes(IG's)percentage and absolute count will include metamyelocytes, myelocytes, and promyelocytes. Blood smears from CBCs yielding IG's will be scanned manually for concordance. If this scan disagrees with the automated IG or if promyelocytes are noted, a manual differential will be performed. Immature Gran Absolute 0.06(H) 0.00 - 0.04 x10(3)/mc L [facility] Blood 09/23/2022 12:0 5 PM EDT 09/23/2022 12:25 PM EDT Narrative Resulting Agency Comment Spec In Lab Dylan Story MD HEMATOLOGY ORDERABLE S [facility] [place] [address] * (ABNORMAL) Hemogram (09/23/2022 12:05 PM EDT) White Blood Cell 9.4 4.0 - 9.5 x10(3)/mc L [facility] Red Blood Cell 3.77(L) 4.58 - 5.54 x10(6)/mc L [facility] Hemoglobin 13.1(L) 13.7 - 16.5 g/dL [facility] Hematocrit 39.5(L) 40.5 - 48.5 % [facility] Mean Cell Volume 104.8(H) 82.9 - 93.1 fL [facility] Mean Cell Hemoglobin 34.7(H) 27.5 - 32.1 pg [facility] Mean Cell Hemoglobin Concentration 33.2 32.0 - 35.7 g/dL [facility] Platelet 276 145 - 357 x10(3)/mc L [facility] RDW Standard Deviation 47.7(H) 36.0 - 45.0 fL [facility] RDW coefficient of variation 12.3 11.4 - 13.8 % [facility] Mean Platelet Volume 10.4 7.6 - 12.9 fL [facility] NRBC% auto 0.0 % [facility] NRBC Absolute 0.000 0.000 - 0.000 x10(3)/mc L [facility] Blood 09/23/2022 12:0 5 PM EDT 09/23/2022 12:25 PM EDT Narrative Resulting Agency Comment Spec In Lab Dylan Story MD HEMATOLOGY ORDERABLE S Performing Organization Address City/[facility]/ZIP Co de Phone Number [facility] [place] [address] * (ABNORMAL) Basic Metabolic Panel (non-fasting) (09/23/2022 12:05 PM EDT) Glucose 106 65 - 199 mg/dL [facility] Comment:Diabetes: >=200 mg/d L plus symptoms Blood Urea Nitrogen 8(L) 10 - 20 mg/dL [facility] Creatinine 0.58(L) 0.80 - 1.50 mg/dL [facility] Sodium 130(L) 135 - 145 mmol/L [facility] Potassium 5.0 3.5 - 5.0 mmol/L [facility] Comment: Please note: ??Patients with WBC >100,000 may have falsely elevated Potassium levels. ??For accurate Potassium quantification in these patients send serum separator tube (gold top) for subsequent determinations. ??Contact the Clinical Chemistry Laboratory if there are any questions. Chloride 95(L) 98 - 107 mmol/L [facility] Carbon Dioxide 25 22 - 31 mmol/L [facility] Anion Gap 10 5 - 15 mmol/L [facility] Calcium 9.3 8.5 - 10.5 mg/dL [facility] Est Glomerular Filtration Rate 104 >=60 mL/min/1. 73 m?? [facility] Comment: This patient's estimated GFR [...] In Lab Dylan Story MD CHEMISTRY ORDERABLES [facility] [place] [address] documented in this encounter Visit Diagnoses Diagnosis [...] Given 09/23/2022 2:11 PM EDT 400 mg wwrnhr-vxnobbit-ytlvzgj DR (Creon 24) 24,000-76,000 -120,000 unit per [...] 1411 (Given - Provider: Vini Lucero MD) hjglbo-etucfsmi-xdinlkb DR (Creon 24) 24,000-76,000 -120,000 unit per [...] Routine documented in this encounter Care Teams Winding Rack Operator Relationship Specialty Start Date End Date Katia Stone PA [address] [place] [address] PCP - General General Internal Medicine 11/10/18 documented as of this encounter
--- OUTSIDE RECORDS SUMMARY | 2023-12-15 14:27 | XMS_ITS | Encounter Summary ---
Author Organization [facility] [place] [address] Care Team Providers Care Oyster Picker Name Role Phone Katia Stone Primary Care Provider [phone] Encounter Details Date Type Department Care Team (Late st Contact Info) Description 02/13/2022 Orders Only Cardiology at [address] [phone] Dylan Story MD [facility] [place] [address] Social History Tobacco Use Types Packs/Day Years [...] AM EST Hospital Encounter Non[place] [address] Arrived documented as of this encounter Procedures [...] on filedocumented in this encounter Care Teams Oyster Picker Relationship Specialty Start Date End Date Katia Stone PA [address] [facility] [place] [address] PCP - General General Internal Medicine 11/10/18 documented as of this encounter
--- OUTSIDE RECORDS SUMMARY | 2023-12-15 14:27 | XMS_ITS | Encounter Summary ---
Author Organization [facility] Address [facility] [place] [address] Care Team Providers Care Delivery Room Clerk Name Role Phone Katia Stone Primary Care Provider [phone] Encounter Details Date Type Department Care Team (Latest Contact Info) Description 08/13/2022 10:00 AM EDT - 08/13/2022 11:59 PM EDT Hospital Encounter Non-[place] [address] Discharge Disposition: Home Social History Tobacco Use [...] AM EST Hospital Encounter Non-[place] [address] Arrived documented as of this encounter Procedures [...] on filedocumented in this encounter Care Teams Delivery Room Clerk Relationship Specialty Start Date End Date Katia Stone PA [address] [place] [address] PCP - General General Internal Medicine 11/10/18 documented as of this encounter
--- OUTSIDE RECORDS SUMMARY | 2023-12-15 14:27 | XMS_ITS | Encounter Summary ---
Author Organization [facility] Address [facility] [place] [address] Care Team Providers Care Forestry Scientist Name Role Phone Katia Stone Primary Care Provider [phone] Encounter Details Date Type Department Care Team (Late st Contact Info) Description 07/09/2021 1:35 PM EDT Ancillary Procedure Radiology Library at [facility] [place] [phone] Nolan Beth MD [facility] [place] [address] Social History Tobacco Use Types Packs/Day Years [...] AM EST Hospital Encounter Non-Invasive [place] [phone] Arrived documented as of this encounter Procedures [...] MD IMG FILM LIBRARY OR DERABLES DH [place], [place] documented in this encounter Visit Diagnoses Not on filedocumented in this encounter Care Teams Forestry Scientist Relationship Specialty Start Date End Date Katia Stone PA [address] [place] [phone] PCP - General General Internal Medicine 11/10/18 documented as of this encounter
--- OUTSIDE RECORDS SUMMARY | 2023-12-15 14:27 | XMS_ITS | Encounter Summary ---
Author Organization [facility] Address [facility] [place] [address] Care Team Providers Care Proofer Apprentice Name Role Phone Katia Stone Primary Care Provider [phone] Encounter Details Date Type Department Care Team (Latest Contact Info) Description 02/09/2023 10:00 AM [facility] Hospital Encounter Non[place] [address] Discharge Disposition: Home Social History Tobacco Use [...] AM EST Hospital Encounter Non-[place] [address] Arrived documented as of this encounter Visit Diagnoses Not on filedocumented in this encounter Care Teams Proofer Apprentice Relationship Specialty Start Date End Date Katia Stone PA [facility] [address] [place] [phone] PCP - General General Internal Medicine 11/10/18 documented as of this encounter
--- OUTSIDE RECORDS SUMMARY | 2023-12-15 14:27 | XMS_ITS | Encounter Summary ---
Author Organization [facility] [place] [address] Care Team Providers Care Bag Bleacher Name Role Phone Katia Stone Primary Care Provider Encounter Details Date Type Department Care Team (Late st Contact Info) Description 07/23/2021 [place] [phone] Mykel Stern, [facility] [place] [address] Social History Tobacco Use Types Packs/Day Years [...] were requested by Dr. Virginia Price of [facility]. Unclear follow up in our system; [...] st Contact Info) Description 02/04/2024 10:00 AM [facility] Hospital Encounter Non[place] [address] Arrived documented as of this encounter Visit Diagnoses Not on filedocumented in this encounter Care Teams Bag Bleacher Relationship Specialty Start Date End Date Katia Stone PA [facility] [address] [place] [address] PCP - General General Internal Medicine 11/10/18 documented as of this encounter
--- OUTSIDE RECORDS SUMMARY | 2023-12-15 14:27 | XMS_ITS | Encounter Summary ---
Author Organization [facility] Address [facility] [place] [address] Care Team Providers Care Hasher Machine Operator Name Role Phone Katia Stone Primary Care Provider Encounter Details Date Type Department Care Team (Latest Contact Info) Description 06/26/2021 3:30 PM EDT Ancillary Procedure Radiology Library [place] [facility] [place] [address] [facility] [place] [address] Gallbladder abscess Social History Tobacco Use Types [...] PRE-PROCEDURE NOTE: PCP: GIRISH Johnson Referring Provider: [facility] General Surgery: Virginia Price DO [...] History was communicated by Dr. Price from [facility]. They are requesting a gallbladder [...] and left basilar pleural collection presenting to [facility] for ct guided abdominal and left pleural drian placement. Plan: Planned procedure: CT guided RUQ abdominal drain and left chest tube placement Labs to be performed day of procedure: Hemogram; INR; Coags (need to be faxed from [facility]) Sedation: Moderate (Conscious sedation) Prophylactic [...] AM EST Hospital Encounter Non-Invasive [place] [address] Arrived documented as of this encounter Procedures Procedure Name Priority Date/Time Associated Diagnosis Comments FILM LIBRARY STORAGE ONLY CT ABDOMEN AND PELVIS Routine 06/26/2021 3:25 PM EDT documented in this encounter Results * Film Library- Storage Only CT Abdomen & Pelvis (06/26/2021 3:25 PM EDT) Narrative [facility] - 06/26/2021 3:25 PM EDT This exam is auto-finalizing. It's purpose is for storage only. Mykel Stern DO IMShaun FILM LIBRARY ORD ERABLES Performing Organization Address City/State/[facility] Co de Phone Number [place], [place] documented in this encounter Visit Diagnoses Diagnosis Gallbladder abscess Acute cholecystitis documented in this encounter Care Teams Hasher Machine Operator Relationship Specialty Start Date End Date Katia Stone PA [facility] [address] [place] [address] PCP - General General Internal Medicine 11/10/18 documented as of this encounter
--- OUTSIDE RECORDS SUMMARY | 2023-12-15 14:27 | XMS_ITS | Encounter Summary ---
Author Organization [facility] Address [facility] [place] [address] Care Team Providers Care Milieu Manager Name Role Phone Katia Stone Primary Care Provider Encounter Details Date Type Department Care Team (Latest Contact Info) Description 02/09/2023 10:00 AM EST - 02/09/2023 11:59 PM [facility] Hospital Encounter [place] [address] Discharge Disposition: Home Social History Tobacco Use [...] AM EST Hospital Encounter [place] [address] Arrived documented as of this encounter Procedures [...] on filedocumented in this encounter Care Teams Milieu Manager Relationship Specialty Start Date End Date Katia Stone PA [address] [place] [phone] PCP - General General Internal Medicine 11/10/18 documented as of this encounter
--- OUTSIDE RECORDS SUMMARY | 2023-12-15 14:27 | XMS_ITS | Encounter Summary ---
Author Organization [facility] Address [facility] [place] [address] Care Team Providers Care Container Crane Operator Name Role Phone Katia Stone Primary Care Provider [phone] Encounter Details Date Type Department Care Team (Late st Contact Info) Description 07/22/2022 Orders Only Cardiology at [address] [phone] Humberto Ashraf PA [facility] [place] [address] Social History Tobacco Use Types Packs/Day Years Used Date Smoking Tobacco: Never Assessed Sex and Gender Information Value Date Recorded Sex Assigned at Not on file Gender Identity Not on file Sexual Orientation Not on file documented as of this encounter Progress Notes * Humberto Ashraf PA - 07/22/2022 3:02 PM EDT Cardiac Electrophysiology 71yo man with hx of CHB, s/p dual lead [employer] pacemaker implant implanted 04/30/2017, complicated by pericardial effusion with tamponade requiring RA lead reposition on 05/16/2020. RA lead function has continued to deteriorate with significantly elevated pacing threshold. His device has now tripped to DIONICIO on 07/10/2022. Dr. Story evaluated her device on 07/03/2022 at [facility] clinic visit and reviewed risk/benefit of [...] AM EST Hospital Encounter [place] [address] Arrived documented as of this encounter Visit Diagnoses Not on filedocumented in this encounter Care Teams Container Crane Operator Relationship Specialty Start Date End Date Katia Stone PA [address] [place] [phone] PCP - General General Internal Medicine 11/10/18 documented as of this encounter
--- OUTSIDE RECORDS SUMMARY | 2023-12-15 14:27 | XMS_ITS | Encounter Summary ---
Author Organization [facility] Address [facility] [place] [address] Care Team Providers Care Mapping Analyst Name Role Phone Katia Stone Primary Care Provider [phone] Encounter Details Date Type Department Care Team (Late st Contact Info) Description 04/04/2022 Notes Only Cardiology at [address] [phone] Humberto Ashraf PA [facility] [place] [address] Social History Tobacco Use Types Packs/Day Years [...] pacing threshold; afib/flutter Transmission Date: 03/28/2022 Device Helper Electrical and Type: [employer] L111 Battery Status: estimated longevity 6 months Atrial lead status: normal sensing and impedance; elevated pacing threshold(now 4.0V @ 0.4ms); known partial fx Right ventricular lead status: good Left ventricular lead status: n/a Pacin % Atrial pacing 100 % Ventricular pacing Events/Arrhythmias noted since last reset: New acutely elevated RA pacing threshold Impression: 71yo man with dual lead [employer] 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 He is followed at [facility] and has reported known atrial lead dysfunction as assessed by Dr. Story. Now as he approaches [facility], he should be evaluated for lead replacement, +/-extraction of the fractured lead. I will request follow up to be scheduled. GIRISH Marin, MPAS, DFAAPA documented in this encounter Plan of Treatment Upcoming Encounters Date Type Department Care Team (Late st Contact Info) Description 02/04/2024 10:00 AM EST Hospital Encounter Non-[place] [address] Arrived documented as of this encounter Visit Diagnoses Not on filedocumented in this encounter Care Teams Mapping Analyst Relationship Specialty Start Date End Date Katia Stone PA [address] [facility] [place] [facility] [place] [phone] PCP - General General Internal Medicine 11/10/18 documented as of this encounter
--- OUTSIDE RECORDS SUMMARY | 2023-12-15 14:27 | XMS_ITS | Encounter Summary ---
[place] [address] Care Team Providers Care Land Clearer Name Role Phone Katia Stone Primary Care Provider Encounter Details Date Type Department Care Team (Late st Contact Info) Description 09/18/2022 Telephone Cardiology at [address] [phone] Zee Hyde Social History Tobacco Use Types [...] she will schedule him for those at [facility]. documented in this encounter Plan of Treatment Upcoming Encounters Date Type Department Care Team (Late st Contact Info) Description 02/04/2024 10:00 AM [facility] Hospital Encounter Non[place] [address] Arrived documented as of this encounter Visit Diagnoses Not on filedocumented in this encounter Care Teams Land Clearer Relationship Specialty Start Date End Date Katia Stone PA [address] [place] [phone] PCP - General General Internal Medicine 11/10/18 documented as of this encounter
--- OUTSIDE RECORDS SUMMARY | 2023-12-15 14:27 | XMS_ITS | Encounter Summary ---
Author Organization [facility] Address [facility] [place] [address] Care Team Providers Care Crime Specialist Name Role Phone Katia Stone Primary Care Provider Encounter Details Date Type Department Care Team (Latest Contact Info) Description 08/14/2021 - 08/14/2021 11:59 PM EDT Hospital Encounter Non-Invasive [place] [phone] Dylan Story MD [facility] [place] [address] CHB (complete heart block) Discharge Disposition: Home [...] AM EST Hospital Encounter Non-Invasive [place] [address] Arrived documented as of this encounter Procedures [...] complete documented in this encounter Care Teams Crime Specialist Relationship Specialty Start Date End Date Katia Stone PA [address] [place] [address] PCP - General General Internal Medicine 11/10/18 documented as of this encounter
--- OUTSIDE RECORDS SUMMARY | 2023-12-15 14:27 | XMS_ITS | Encounter Summary ---
Author Organization [facility] [place] [address] Care Team Providers Care Lead Ramp Service Man Name Role Phone Katia Stone Primary Care Provider [phone] Reason for Visit * Auth/Cert (Routine) Specialty [...] OR PM) (WRVU 4.92) Dylan Story MD [facility] [place] [address] [facility] Referral ID Status Reason Start Date Expiration Date Visits Re quested Visits Authorized [id number] 1 1 Encounter Details Date Type Department Care Team (Late st Contact Info) Description 09/23/2022 1:23 PM EDT Anesthesia Event [place] [address] Alida Lopez MD [facility] DR [place] [address] Anesthesia Record Procedure Summary Procedure Name Responsible [...] 1012; metacarpal vein (top of hand), left; [id number]-[id number] catheter system; 22 gauge; OSH; 09/23/22; 1307 07/10/21 1012 by Marilyn Duncan RN 09/23/22 1307 by Jessica Sandhu RN (RETIRED) Peripheral IV Line - Single Lumen 09/23/22; 1307; metacarpal vein (top of hand), left; [id number]-rph-[id number] catheter system; Anatomical Landmarks; 20 gauge; anes; [...] Room / Location: EP B-LAB ROOM / [facility] EP LABS Anesthesia Start: 1323 Anesthesia Stop: [...] All Anesthesia Providers: Anesthesiologist: Alida Lopez MD MEDICAL PLANNER: Jill Ríos CRNA Vitals Value Taken Time BP 125/94 09/23/22 1715 Temp 36.4 ??C (97.5 ??F) 09/23/22 1634 Pulse 73 09/23/22 1722 Resp 20 09/23/22 1722 SpO2 92 % 09/23/22 1722 Pain Level 10 09/23/22 1720 Vitals shown include unvalidated device data. Patient Location: PACU/[facility] Level of Consciousness: Conscious but Sleepy Pain [...] Chest Tube/Pleural Drain 07/10/2021 Vick Boss MD [facility] RAD CT SCAN ??? CT PERITONEAL DRAINAGE 07/10/2021 CT Guided Drain Peritoneal 07/10/2021 Vick Boss MD [facility] RAD CT SCAN Social History Tobacco Use [...] risks discussed with patient. Plan discussed with MEDICAL PLANNER and attending. Anesthesia Screening documented in this encounter Plan of Treatment Upcoming Encounters Date Type Department Care Team (Late st Contact Info) Description 02/04/2024 10:00 AM [facility] Hospital Encounter [place] [address] Arrived documented as of this [...] mg documented in this encounter Care Teams Lead Ramp Service Man Relationship Specialty Start Date End Date Katia Stone PA [address] [place] [phone] PCP - General General Internal Medicine 11/10/18 documented as of this encounter
--- OUTSIDE RECORDS SUMMARY | 2023-12-15 14:27 | XMS_ITS | Encounter Summary ---
Author Organization [facility] [place] [address] Care Team Providers Care Ticket Maker Name Role Phone Katia Stone Primary Care Provider Reason for Referral * Diagnostic Test (Routine) - Closed Specialty Diagnoses / Procedures Referred By Contac t Referred To Contact Radiology Diagnoses Abdominal visceral abscess Procedures CT Guided Drain Peritoneal Virginia Price [address] [place] [address] [facility] [place] [address] Referral ID Status Reason Start Date Expiration Date V isits Requested Visits Authorized [id number] Closed Specialty Service Requested 07/09/2021 01/09/2023 1 1 Reason for Visit * Diagnostic Test (Routine) - Closed Specialty Diagnoses / Procedures Referred By Contac t Referred To Contact Radiology Diagnoses Abdominal visceral abscess Procedures CT Guided Drain Peritoneal Virginia Price [address] [place] [address] [facility] [place] [address] Referral ID Status Reason Start Date Expiration Date V isits Requested Visits Authorized [id number] Closed Specialty Service Requested 07/09/2021 01/09/2023 1 1 Encounter Details Date Type Department Care Team (Latest Contact Info) Description 07/10/2021 9:19 AM EDT - 07/10/2021 11:59 PM EDT Hospital [place] [address] Virginia Price, DO [address] [place] [address] Abdominal visceral abscess (Primary Dx) Discharge Disposition: [...] is during regular office hours, please call [phone]. If it is after regular office hours, or on weekends or holidays, please call [phone] and ask to speak to the Continuous Improvement Coordinator convertible power shovel operator for Interventional Radiology. XX You have received [...] of : 1950 AGE: 70 y.o. Address: [place] [address] (home) Mobile: No relevant phone numbers on file. Referring Provider: Virginia Price REASON FOR VISIT: Order Questions Answers Where will study be performed? [facility] Radiology [120] Is the patient on [...] Questions Answers Where will study be performed? [facility] Radiology [120] Is the patient on [...] Questions Answers Where will study be performed? [facility] Radiology [120] Is the patient on [...] culture Complications: No immediate Plan/Disposition: Return to [facility] GB fossa drain to bulb [...] AM EST Hospital Encounter Non-Invasive [place] [address] Arrived documented as of this encounter Procedures [...] EDT 1. ??Percutaneous placement of a 10 Finnish drainage catheter into gallbladder fossa abscess/biloma, yielding 120 mL of cloudy brown fluid. 2. ??Left-sided 10 Finnish chest tube placement, yielding 30 mL of cloudy brown. Plan: 1. ??To IR recovery then transfer back to [facility]. 2. ??Awaiting return call from [...] who have questions please contact the health animal care giver that requested your imaging first. ? Narrative [...] IMPRESSION 1. Percutaneous placement of a 10 Finnish drainage catheter intogallbladder fossa abscess/biloma, yielding 120 mL of cloudy brown fluid. 2. Left-sided 10 Finnish chest tube placement, yielding 30 mL of cloudybrown. Plan: 1. To IR recovery then transfer back to [facility]. 2. Awaiting return call from [...] patients who have questions please contactthe health animal care giver that requested your imaging first. Virginia Price DO IMG CT ORDERABLES * CT Guided Drain Chest Tube/Pleural Drain (07/10/2021 12:19 PM EDT) Anatomical Region Laterality Modality Computed Tomogra phy Impressions 07/11/2021 10:21 AM EDT 1. ??Percutaneous placement of a 10 Finnish drainage catheter into gallbladder fossa abscess/biloma, yielding 120 mL of cloudy brown fluid. 2. ??Left-sided 10 Finnish chest tube placement, yielding 30 mL of cloudy brown. Plan: 1. ??To IR recovery then transfer back to [facility]. 2. ??Awaiting return call from [...] who have questions please contact the health animal care giver that requested your imaging first. ? Narrative [...] IMPRESSION 1. Percutaneous placement of a 10 Finnish drainage catheter intogallbladder fossa abscess/biloma, yielding 120 mL of cloudy brown fluid. 2. Left-sided 10 Finnish chest tube placement, yielding 30 mL of cloudybrown. Plan: 1. To recovery then transfer back to [facility]. 2. Awaiting return call from [...] patients who have questions please contactthe health animal care giver that requested your imaging first. Virginia Price DO IMG CT ORDERABLES * Anaerobic Culture (07/10/2021 11:45 AM EDT) Anaerobic Culture No anaerobic organisms isolated [facility] Fluid 07/10/2021 11:4 5 AM EDT 07/10/2021 12:24 PM EDT Comment:Left chest tube plac ement. Narrative Resulting Agency Comment Spec In Lab Vick Boss MD MICROBIOLOGY - GEN ERAL ORDERABLES Performing Organization Address City/[facility]/ZIP Co de Phone Number [facility] [place] [address] * Body Fluid Culture, Aerobic (07/10/2021 11:45 AM EDT) Body Fluid Culture No growth [facility] Gram Stain Cytocentrifuge Gram Stain performed No Neutrophils seen. No microorganisms seen. [facility] Fluid 07/10/2021 11:4 5 AM EDT 07/10/2021 12:24 PM EDT Comment:Left chest tube plac ement. Narrative Resulting Agency Comment Spec In Lab Vick Boss MD MICROBIOLOGY - GEN ERAL ORDERABLES Performing Organization Address City/[facility]/ZIP Co de Phone Number [facility] [place] [address] * Anaerobic Culture (07/10/2021 11:20 AM EDT) Anaerobic Culture No anaerobic organisms isolated [facility] Abdominal Fluid 07/10/2021 1 1:20 AM EDT 07/10/2021 12:25 PM EDT Comment:70 y.o. male with le ukocytosis and collection on CT following cholecystectomy presenting to Interventional Radiology for drainage Narrative Resulting Agency Comment Spec In Lab Vick Boss MD MICROBIOLOGY - GEN ERAL ORDERABLES [facility] [place] [address] * (ABNORMAL) Body Fluid Culture, Aerobic (07/10/2021 11:20 AM EDT) Body Fluid Culture Few Escherichia coli(A) [facility] Gram Stain Cytocentrifuge Gram Stain performed Neutrophils seen Few Gram Negative Rods (A) [facility] Organism Escherichia coli(A) [facility] Abdominal Fluid 07/10/2021 1 1:20 [...] Boss MD MICROBIOLOGY - GEN ERAL ORDERABLES [facility] [place] [address] documented in this encounter Visit Diagnoses Diagnosis [...] mg documented in this encounter Care Teams Ticket Maker Relationship Specialty Start Date End Date Katia Stone PA [address] [place] [phone] PCP - General General Internal Medicine 11/10/18 documented as of this encounter
--- NOTE | 2023-12-15 14:28 | W.PC.ACHO ---
Registration Status: Primary Language: Preferred Language: ED Information & Data Chief Complaint CVA/TIA 12/15/23 11:11 Triage Note pt BIBA from [facility] for right 12/15/23 10:48 sided weakness after fall out of bed, unsure of LKW, able to minimally move right arm on arrival, good sensation to right side, can 't move toes, hx of dementia , dtr aware of arrival and has called, IV to left hand by EMS, IV to RAC by u/s in CT. Medical / Surgical History (Last Reviewed 08/17/23 @ 01:25 by Mykel Ramos) Pneumonia CHB (complete heart block) Recurrent left pleural effusion History of empyema of pleura Hyponatremia, hypo-osmolarity, or hypo-osmolar hyponatremia (Last Reviewed 08/17/23 @ 01:25 by Mykel Ramos) S/P laparoscopic cholecystectomy History of permanent cardiac pacemaker placement Most Recent Vital Signs Temperature 36.5 C 12/15/23 10:48 Temperature Source Temporal Artery Scan 12/15/23 10:48 Pulse 59 L 12/15/23 11:31 Pulse Rhythm Regular 12/15/23 14:22 Pulse 60 12/15/23 13:50 Respiratory Rate 15 12/15/23 13:50 Respiratory Effort Normal 12/15/23 14:22 Respiratory Depth Normal 12/15/23 14:22 Respiratory Pattern Normal 12/15/23 14:22 Blood Pressure 124/72 12/15/23 11:31 Blood Pressure Mean 90 12/15/23 11:31 Blood Pressure Position Supine 12/15/23 10:48 Pulse Oximetry 91 L 12/15/23 13:50 Oxygen Delivery Method Room Air 12/15/23 10:48 Oxygen Flow Rate 0 12/15/23 10:48 Pain Level 0 12/15/23 13:58 Comment chronic pain, fent patch on per MAR from [facility] 12/15/23 10:48 Allergies No Known Allergies Allergy (Verified 08/16/23 19:43) Precautions Isolation Standard precaution 12/15/23 10:59 Active Medications Generic Name Dose Route Start Last Admin Trade Name Freq PRN Reason Stop Dose Admin Iohexol 100 ml 12/15/23 10:45 12/15/23 10:45 Omnipaque 350 Mg/Ml 100 Ml Btl IJ 01/14/24 23:59 70 ml DIRECTED ROGELIO Administration Sodium Chloride 50 ml 12/15/23 10:45 12/15/23 10:44 Normal Saline - Diluent 50 Ml Vial IJ 50 ml .FOR DI USE ROGELIO Administration IV IV Catheter Type [Left Hand] Peripheral IV IV Catheter Type [Antecubital] Peripheral IV IV Catheter Gauge [Left Hand] 20 IV Catheter Gauge [Antecubital 18 ] Diagnostics 12/15/23 12/15/23 12/15/23 Range/Units 13:38 11:35 11:18 WBC (4.4-10.8) 10^3/uL RBC (4.36-5.78) 10^6/uL Hgb (13.5-17.5) g/dL Hct (40.0-50.0) % MCV (80-95) fL MCH (27.0-33.0) pg MCHC (32.0-36.0) % RDW (11.8-14.1) % Plt Count (130-400) 10^3/uL MPV (8.0-11.0) fL Immature Gran % % Neutrophils % % Lymphocytes % % Monocytes % % Eosinophils % % Basophils % % Nucleated RBC % (0.0-0.3) % Absolute Neutrophils (1.2-6.7) 10^3/uL Absolute Lymphocytes (1.2-3.4) 10^3/uL Absolute Monocytes (0.1-0.8) 10^3/uL Absolute Eosinophils (0.0-0.7) 10^3/uL Absolute Basophils (0.0-0.2) 10^3/uL Sodium (136-145) mmol/L Potassium (3.5-5.1) mmol/L Chloride (98-107) mmol/L Carbon Dioxide (21.0-32.0) mmol/L Anion Gap (3-11) mmol/L BUN (7-18) mg/dL Creatinine (0.70-1.30) mg/dL Est GFR (CKD-EPI 2020) (mL/min/1.73m2) Glucose (74-106) mg/dL Calcium (8.5-10.1) mg/dL Magnesium (1.8-2.4) mg/dL Total Bilirubin (0.2-1.0) mg/dL AST (15-37) U/L ALT (16-63) U/L Alkaline Phosphatase (46-116) U/L Troponin I 15 14 (<or=76) ng/L Total Protein (6.4-8.2) g/dL Albumin (3.4-5.0) g/dL Urine Color Yellow (Yellow) Urine Clarity Clear (Clear) Urine pH 6.5 (5-8) Ur Specific [place] 1.010 (1.005-1.025) Urine Protein Negative (Neg-Trace) mg/dL Urine Ketones Negative (Negative) mg/dL Urine Blood Negative (Negative) Urine Nitrite Negative (Negative) Urine Bilirubin Negative (Negative) Urine Urobilinogen 0.2 (Up to 0.2) mg/dL Ur Leukocyte Esterase Negative (Negative) Urine Glucose Negative (Negative) mg/dL 12/15/23 Range/Units 10:34 WBC 15.29 H (4.4-10.8) 10^3/uL RBC 3.99 L (4.36-5.78) 10^6/uL Hgb 13.3 L (13.5-17.5) g/dL Hct 41.0 (40.0-50.0) % MCV 103 H (80-95) fL MCH 33.3 H (27.0-33.0) pg MCHC 32.4 (32.0-36.0) % RDW 12.8 (11.8-14.1) % Plt Count 193 (130-400) 10^3/uL MPV 11.6 H (8.0-11.0) fL Immature Gran % 0.5 % Neutrophils % 77.2 % Lymphocytes % 11.8 % Monocytes % 8.8 % Eosinophils % 1.1 % Basophils % 0.6 % Nucleated RBC % 0.0 (0.0-0.3) % Absolute Neutrophils 11.80 H (1.2-6.7) 10^3/uL Absolute Lymphocytes 1.80 (1.2-3.4) 10^3/uL Absolute Monocytes 1.35 H (0.1-0.8) 10^3/uL Absolute Eosinophils 0.17 (0.0-0.7) 10^3/uL Absolute Basophils 0.09 (0.0-0.2) 10^3/uL Sodium 138 (136-145) mmol/L Potassium 4.3 (3.5-5.1) mmol/L Chloride 98 (98-107) mmol/L Carbon Dioxide 34.7 H (21.0-32.0) mmol/L Anion Gap 5.3 (3-11) mmol/L BUN 12 (7-18) mg/dL Creatinine 0.8 (0.70-1.30) mg/dL Est GFR (CKD-EPI 2020) 93.45 (mL/min/1.73m2) Glucose 124 H (74-106) mg/dL Calcium 9.1 (8.5-10.1) mg/dL Magnesium 1.8 (1.8-2.4) mg/dL Total Bilirubin 0.36 (0.2-1.0) mg/dL AST 20 (15-37) U/L ALT 19 (16-63) U/L Alkaline Phosphatase 104 (46-116) U/L Troponin I 14 (<or=76) ng/L Total Protein 8.5 H (6.4-8.2) g/dL Albumin 3.2 L (3.4-5.0) g/dL Urine Color (Yellow) Urine Clarity (Clear) Urine pH (5-8) Ur Specific [place] (1.005-1.025) Urine Protein (Neg-Trace) mg/dL Urine Ketones (Negative) mg/dL Urine Blood (Negative) Urine Nitrite (Negative) Urine Bilirubin (Negative) Urine Urobilinogen (Up to 0.2) mg/dL Ur Leukocyte Esterase (Negative) Urine Glucose (Negative) mg/dL Intake and Output - 24 Hour Total 12/15/23 10:14 thru 12/15/23 11:18 Output Total 125 Balance -125 Weight 115 kg Output: Urine 125 Other: Urine Color Yellow Urine Appearance Clear # Voids 1 Falls Risk Assessment History of Falls Admit Due to Fall 12/15/23 14:22 Contributing Factors Impairments 12/15/23 14:22 Ambulatory Aids Uses ambulatory device + 12/15/23 14:22 Tubes/Lines With any additional score 12/15/23 14:22 Gait Evaluation W/any additional score 12/15/23 14:22 Cognition No cognitive impairment 12/15/23 14:22 Fall Total Score 98 12/15/23 14:22 Level of Risk Maximum Risk 12/15/23 14:22 v v v v v v v v v Sending and/or Receiving Nurses: Please use comment section below to note any information pertinent to the patient hand-off not included above. Information / Comments: pt arrives via stretcher to [facility] 229 Report received from: marvel Slade RN
--- NOTE | 2023-12-15 14:59 | HPE_ITS ---
Date of service: 12/15/23 Time of Service: 14:59 Assessment and Plan Assessment and plan (1) Acute right-sided weakness: Status: Acute Assessment and plan: Acute right sided weakness. TIA/CVA is the clear concern and he does have risk factors of CAD and HTN. Examinaiton in ED and here has shown features that this is not clear hemiparesis from a central cause. He is not hyperreflexic and has used his right side at times, though I could not elicit all the classic signs of conversion. We also don't have a clear stressor to explain a conversion syndrome. He did have a fall which could have triggered weakness related to pain, but he doesn't have clear focal injuries to explain this. CT/CTA negative, which would be unlikely in the case of a stroke affecting so much of his body. MRI not possible here given pacemaker. For now, treat with ASA/high intensity statin, telemetry monitoring, work with PT. History does not suggest seizures. Teleneuroconsult to help direct work up. It may make sense to repeat CT in 1-2 days since we can't get MRI. (2) Chronic hyponatremia: Status: Acute Assessment and plan: normal today, on NaCl tablets (3) Depression: Status: Chronic Assessment and plan: Denies active depression, continue sertraline. (4) CHF (congestive heart failure): Status: Chronic Assessment and plan: history of HFpEF, continue outpatient diuretics. Qualifiers: Heart failure type: diastolic Heart failure chronicity: chronic Q ualified Code(s): I50.32 - Chronic diastolic (congestive) heart failure (5) Dementia: Status: Chronic Assessment and plan: Mild per daughter. 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 Not acutely active. Continue outpatient inhalers. 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 The history is vague, mostly reported by her daughter from her phone calls with [facility] with some clarification provided by the patient. He woke at his normal time about 5:45 AM this morning. He doesn't remember feeling weak then. He was getting out of bed around 6:15 and he slipped and fell to the floor. The staff called the daughter and reported he did not hit his head or loose consciousness and they did not note any deficits at that time. At around 9am the noted he wasn't moving his right side. They weren't sure what happened and he didn't want to go to the ED at first, but they convinced him. Currently states he can feel that right side, but he can't move it. He feels weak, but also it hurts to move in knee. He also described pain in right elbow and hand but this was not consistent. He has never had a stroke or seizure or a similar episode of weakness. He has not had increased stress, anxiety, or depression lately. He doesn't remember injuring anything during his initial fall. He has no headache, neck pain or stiffness, or back pain. He states his chronic pain is typically in his knees. He has no chest pain or palpitations. Review of Systems All systems reviewed & are unremarkable except as noted in HPI and below Eyes Eyes: Denies loss of vision ENT Ears, Nose, Mouth, and Throat: Denies vertigo and Denies dizziness Cardiovascular Cardiovascular: Denies syncope Neurologic Neurologic: Denies abnormal speech, Denies behavioral changes, Denies confusion, Denies vertigo, Denies dizziness, Denies syncope, Denies lack of coordination, Denies loss of vision, Denies seizure-like activity and Denies tremor(s) Psychiatric Psychiatric: Denies behavioral changes, Denies confusion, Denies depression, Denies mood swings and Denies hallucinations PFSH All Active Problems (Updated 12/15/23 @ 16:30 by Tim Payton) Acute right-sided weakness (Acute) Dementia (Chronic) Hyponatremia (Chronic) CHF (congestive heart failure) (Chronic) Chronic hyponatremia (Acute) Shortness of breath (Acute) Nail dystrophy (Acute) Restrictive lung disease (Acute) Asthma (Chronic) Shortness of breath (Acute) Sebaceous cyst (Acute) Nasal obstruction (Acute) External nasal lesion (Acute) Hypertension (Chronic) Left lower lobe pneumonia (Acute) Bloating (Acute) Heme positive stool (Acute) Infected sebaceous cyst of skin (Acute) Trapped lung (Acute) Sacroiliitis (Acute) Depression (Chronic) Lymphedema (Acute) HTN (hypertension) with goal to be determined (Chronic) Obesity (Chronic) DNR (do not resuscitate) (Acute) Presence of cardiac pacemaker (Chronic) isango! PPM MRI model L111 Serial # [id number] placed dual chamber 04/30/2017 for CHB at [facility]. 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 Most likely this is inflammatory tissue and not actually fluid. pt has had multiple taps. He was on a prolonged course of IV abx and has failed to resolve. This is a sequelae of this pericardial tamponade following disruption of his RA lead from pacemaker insertion. CHB (complete heart block) had permanent pacemaker implanted 2017 for this Hyponatremia, hypo-osmolarity, or hypo-osmolar hyponatremia Surgical History S/P laparoscopic cholecystectomy History of permanent cardiac pacemaker placement with subsequent repositioning Family History (Updated 12/15/23 @ 16:04 by Tim Payton) Son Alcohol use disorder Social History (Updated 12/15/23 @ 16:06 by Tim Payton) Smoking/Tobacco Use Status: Former Tobacco Use tobacco type: smokeless tobacco Smoking risk assessment performed?: Yes Alcohol Intake: current Alcohol Intake frequency: 0-2 drinks per day Alcohol type: beer Drug use: Never Substance use type: does not use Housing: longterm Pets and animals: No Do you feel safe at home: Yes Do you feel safe in your relationship?: Yes Additional Social history: 2 sons cirrhosis/EtOH, has been in [employer] Allergies and Home Medications Allergies Allergy/AdvReac Type Severity Reaction Status Date / Time No Known Allergies Allergy Verified 08/16/23 19:43 Home Medications ?Medication ?Instructions ?Recorded ?Confirmed ?Type albuterol sulfate 90 mcg/actuation 2 inh inhalation TID 03/29/21 12/15/23 History breath activated powder inhaler calcium carbonate 1,000 mg PO Q6H PRN 03/29/21 12/15/23 History fluticasone propionate 50 1 spray intranasal BID 03/29/21 12/15/23 History mcg/actuation nasal spray,suspension pantoprazole 40 mg tablet,delayed 40 mg PO DAILY 03/29/21 12/15/23 History release polyethylene glycol 3350 17 gram 17 g PO DAILY PRN 03/29/21 12/15/23 History oral powder packet (Miralax) sennosides 8.6 mg-docusate sodium 2 tab-cap PO DAILY 03/29/21 12/15/23 History 50 mg tablet (Senexon-S) vitamin B complex (Ultra B-100 1 tab PO DAILY 03/29/21 12/15/23 History Complex ER tablet,extended release) metoprolol succinate 200 mg 200 mg PO DAILY 05/02/21 12/15/23 History tablet,extended release 24 hr melatonin 3 mg capsule 3 mg PO HS 05/10/21 12/15/23 History beer 1 unit PO 1XD PRN 10/18/21 12/15/23 History colestipol 1 gram tablet 2 g PO BID 12/06/21 12/15/23 History fentanyl 12 mcg/hr transdermal 1 patch transdermal Q72H 04/29/22 12/15/23 History patch dextromethorphan-guaifenesin 10 10 ml PO Q4H PRN 08/28/22 12/15/23 History mg-100 mg/5 mL oral liquid (Tussin DM) magnesium gluconate 500 mg tablet 500 mg PO BID 08/28/22 12/15/23 History benzonatate 100 mg capsule 100 mg PO BID 03/27/23 12/15/23 History loratadine 10 mg tablet 10 mg PO DAILY 03/27/23 12/15/23 History fluticasone fur. 200 mcg-umeclid 1 inh inhalation DAILY 06/18/23 12/15/23 History 62.5 mcg-vilant 25 mcg inhalat.powder (Trelegy Ellipta) ipratropium 0.5 mg-albuterol 3 mg 3 ml inhalation Q12H PRN PRN 06/18/23 12/15/23 History (2.5 mg base)/3 mL nebulization soln hhujdz-ojhhyxhf-rbkbzms 1 cap PO TID 06/18/23 12/15/23 History 5,000-17,000-24,000 unit capsule, delayed rel (Zenpep) memantine 5 mg tablet 5 mg PO BID 06/18/23 12/15/23 History sertraline 25 mg tablet 50 mg PO DAILY 06/18/23 12/15/23 History dupilumab 300 mg/2 mL subcutaneous 300 mg subcut Q2W 07/10/23 12/15/23 History pen injector (Dupixent) ibuprofen 200 mg tablet 200 mg PO BID PRN 07/10/23 12/15/23 History cholecalciferol (vitamin D3) 125 5,000 unit PO .weekly 08/11/23 12/15/23 History mcg (5,000 unit) tablet (Vitamin D3) furosemide 20 mg tablet (Lasix) 20 mg PO BID #60 tabs 08/18/23 12/15/23 Rx acetaminophen 500 mg tablet 1,000 mg (2 x 500 mg) PO Q12H #0 08/19/23 12/15/23 Rx (Tylenol Extra Strength) tabs spironolactone 25 mg tablet 50 mg (2 x 25 mg) PO DAILY #0 tabs 08/19/23 12/15/23 Rx sodium chloride 1,000 mg soluble 1,000 mg PO DAILY 12/15/23 12/15/23 History tablet Exam Narrative Exam Narrative: GEN: Alert and oriented x 3, generally aware but unable to relate clear history from earlier in the day. Pleasant, but declines to cooperate with parts of exam like sitting up/rolling to side in addition to moving right side. No acute distress at rest. HEENT: Head atraumatic. Conjunctiva clear, no icterus. PEERL, EOMI. no rhinorrhea. MMM, OP benign. Neck is supple with no masses or lymphadenopathy, trachea midline LUNGS: CTAB with normal effort CV: RRR with no murmurs, gallops, or rubs. ABD: active bowel sounds, soft, nontender and nondistended. No masses. EXT: no cyanosis, clubbing, or edema MSK: No joint redness or swelling NEURO: CN 2-12 intact. On drops right arm slowly on pronator drift, no pronation similar to left side. Intact sensation on right. DTRs 1+ patella, biceps. Toes downgoing glory (slight flexion of leg on right with Babinski). I could not elicit movement on jauregui test on legs. I could not elicit give-way. He did squeeze weakly with hand on right, but could not raise arm. Normal speech. No tremor SKIN: No rashes or open wounds. PSYCH: normal mood and affect, no hallucinations. Results Labs 12/15/23 10:34 12/15/23 10:34 Labs: Laboratory Results - last 24 hr 12/15/23 12/15/23 12/15/23 10:34 11:18 11:35 WBC 15.29 H RBC 3.99 L Hgb 13.3 L Hct 41.0 MCV 103 H MCH 33.3 H MCHC 32.4 RDW 12.8 Plt Count 193 MPV 11.6 H Immature Gran % 0.5 Neutrophils % 77.2 Lymphocytes % 11.8 Monocytes % 8.8 Eosinophils % 1.1 Basophils % 0.6 Nucleated RBC % 0.0 Absolute Neutrophils 11.80 H Absolute Lymphocytes 1.80 Absolute Monocytes 1.35 H Absolute Eosinophils 0.17 Absolute Basophils 0.09 Sodium 138 Potassium 4.3 Chloride 98 Carbon Dioxide 34.7 H Anion Gap 5.3 BUN 12 Creatinine 0.8 Est GFR (CKD-EPI 2020) 93.45 Glucose 124 H Calcium 9.1 Magnesium 1.8 Total Bilirubin 0.36 AST 20 ALT 19 Alkaline Phosphatase 104 Troponin I 14 14 Total Protein 8.5 H Albumin 3.2 L Urine Color Yellow Urine Clarity Clear Urine pH 6.5 Ur Specific [place] 1.010 Urine Protein Negative Urine Ketones Negative Urine Blood Negative Urine Nitrite Negative Urine Bilirubin Negative Urine Urobilinogen 0.2 Ur Leukocyte Esterase Negative Urine Glucose Negative 12/15/23 13:38 WBC RBC Hgb Hct MCV MCH MCHC RDW Plt Count MPV Immature Gran % Neutrophils % Lymphocytes % Monocytes % Eosinophils % Basophils % Nucleated RBC % Absolute Neutrophils Absolute Lymphocytes Absolute Monocytes Absolute Eosinophils Absolute Basophils Sodium Potassium Chloride Carbon Dioxide Anion Gap BUN Creatinine Est GFR (CKD-EPI 2020) Glucose Calcium Magnesium Total Bilirubin AST ALT Alkaline Phosphatase Troponin I 15 Total Protein Albumin Urine Color Urine Clarity Urine pH Ur Specific [place] Urine Protein Urine Ketones Urine Blood Urine Nitrite Urine Bilirubin Urine Urobilinogen Ur Leukocyte Esterase Urine Glucose Last Vital Signs Temp 36.5 C 12/15/23 14:45 Pulse 59 L 12/15/23 14:45 Resp 15 12/15/23 14:45 BP 124/72 12/15/23 14:45 Pulse Ox 91 L 12/15/23 14:45 PAWSS Have you Been Recently Intoxicated or Drunk Within the Last 30 days?: No Have you Ever Experienced Previous Episodes of Alcohol Withdrawal?: No Have you ever Experienced Withdrawal Seizures?: No Have you ever Experienced Delirium Tremens(DT)s?: No Have you ever undergone Alcohol Rehabilitation Treatment (i.e, inpt ot outpatient treatment programs)?: No Have you ever Experienced Blackouts?: No Have you ever Combined Alcohol with other Downers within the last 90 days?: No Have you ever Combined Alcohol with any other Substance of Abuse during the last 90 days?: No Positive Blood Alcohol level on Presentation? [PCS.BAL]: No Evidence of Increased Autonomic Activity (i.e. HR>120, tremor, sweating, agitation, nausea)?: No Result: 0 Time Spent Time spent with Patient: 55-74 minutes Time was spent: preparing to see the patient(eg.review tests), obtaining and/or reviewing separately otained hiistory, ordering medications,tests, procedures, referring, communicating with other health critical care physician assistant, indepentently interpreting results, counseling the patient and care coordination
[2023-12-15 17:27] LABS: C-Reactive Protein 1.39 mg/dL (<or=0.5)
[2023-12-15] MEDS: Enoxaparin 40 MG/0.4 ML SYR SC (17:39)
[2023-12-15] MEDS: fentaNYL 12 MCG PATCH TD (17:39)
[2023-12-15] MEDS: Furosemide 20 MG TAB PO (17:40)
[2023-12-15] MEDS: Creon, Lipase 6,000 CAPCR 1 CAP PO (17:57)
[2023-12-15] MEDS: Colestipol 1 GM TAB 2 GM PO (20:20)
[2023-12-15] MEDS: Fluticasone NASAL SPRAY 16 GM BTL NS (20:20)
[2023-12-15] MEDS: Magnesium Gluconate 500 MG TAB PO (20:21)
[2023-12-15] MEDS: Memantine 5 MG TAB PO (20:22)
[2023-12-15] MEDS: Normal Saline Flush 10 ML SYR IVP (20:24)
[2023-12-15] MEDS: Melatonin 3 MG TAB PO (20:24)
[2023-12-15] MEDS: Budesonide/Formoterol 160/4.5 6 GM 60 PUFF INH IH (20:27)
[2023-12-15] MEDS: Albuterol HFA 8 GM 60 PUFF INH IH (20:27)
[2023-12-15] MEDS: Ibuprofen 200 MG TAB PO (20:33)
[2023-12-16] VITALS (9 sets, daily range): BP systolic 101–134; BP diastolic 57–84; PULSE 61–75; RESP 5–22; TEMP 36–36.7; O2SAT 90–95
[2023-12-16] MEDS: Ibuprofen 200 MG TAB PO (05:58)
[2023-12-16] MEDS: Albuterol/Ipratropium 3 ML UPD VIAL IH (06:01)
[2023-12-16 06:59] LABS: Abs Immature Grans 0.08 10^3/uL (0.0-0.06); Absolute Basophil Count 0.08 10^3/uL (0.0-0.2); Absolute Eosinophil Count 0.17 10^3/uL (0.0-0.7); Absolute Lymphocyte Count 1.95 10^3/uL (1.2-3.4); Absolute Monocyte Count 1.06 10^3/uL (0.1-0.8); Absolute Neutrophil Count 8.45 10^3/uL (1.2-6.7); Basophils % 0.7 %; Eosinophils % 1.4 %; HCT 37.6 % (40.0-50.0); HGB 12.4 g/dL (13.5-17.5); Immature Grans % 0.7 %; Lymphocytes % 16.5 %; MCH 33.4 pg (27.0-33.0); MCV 101 fL (80-95); MPV 12.8 fL (8.0-11.0); Neutrophils % 71.7 %; Platelet Count 206 10^3/uL (130-400); RBC 3.71 10^6/uL (4.36-5.78); RDW 12.6 % (11.8-14.1); RDW-SD 47.6 fL; WBC 11.79 10^3/uL (4.4-10.8)
[2023-12-16 07:25] LABS: Calculated LDL 81 mg/dL (<100); Cholesterol 141 mg/dL (<200); HDL Cholesterol 48 mg/dL (40-60); Triglyceride 60 mg/dL (<150)
[2023-12-16 07:29] LABS: Hemoglobin A1C 5.6 % (<5.7)
[2023-12-16] MEDS: Budesonide/Formoterol 160/4.5 6 GM 60 PUFF INH IH ×2 (08:22→21:55)
[2023-12-16] MEDS: Tiotropium Bromide-Respimat 10 PUFF INH 2 PUFF IH (08:22)
[2023-12-16] MEDS: Colestipol 1 GM TAB 2 GM PO ×2 (08:43→19:40)
[2023-12-16] MEDS: Atorvastatin 40 MG TAB 80 MG PO (08:46)
[2023-12-16] MEDS: Metoprolol CR 100 MG TABCR 200 MG PO (08:46)
[2023-12-16] MEDS: Vitamins B Comp w/C TAB 1 TAB PO (08:47)
[2023-12-16] MEDS: Creon, Lipase 6,000 CAPCR 1 CAP PO (08:47)
[2023-12-16] MEDS: Sennosides/Docusate Sodium TAB 2 TAB PO (08:47)
[2023-12-16] MEDS: Magnesium Gluconate 500 MG TAB PO ×2 (08:49→19:40)
[2023-12-16] MEDS: Spironolactone 25 MG TAB 50 MG PO (08:49)
[2023-12-16] MEDS: Loratidine 10 MG TAB PO (08:50)
[2023-12-16] MEDS: Memantine 5 MG TAB PO ×2 (08:50→19:40)
[2023-12-16] MEDS: Pantoprazole 40 MG TABCR PO (08:50)
[2023-12-16] MEDS: Sertraline 50 MG TAB PO (08:50)
[2023-12-16] MEDS: Acetaminophen 500 MG TAB 1000 MG PO ×2 (08:50→19:40)
[2023-12-16] MEDS: Furosemide 20 MG TAB PO ×2 (08:50→15:51)
[2023-12-16] MEDS: Aspirin 81 MG CHEW PO (08:51)
--- NOTE | 2023-12-16 09:05 | IN_ITS ---
PT Notes Visit Reasons: right sided weakness Inpatient Physical Therapy Evaluation Date:12-16-2023 Referring Doctor: Dr. Payton PT Orders: PT CONSULT: Eval for assistive device Precautions: Standard, IV R antecubital fossa, Patient Profile/Admitting Diagnosis: Pt is 73 yo isaac presented to ED s/p fall at [facility]. Pt reports he sat up at the edge of the bed then slid off the bed prior t transfering to his wheelchair at 6am on 12/15/23. He was assisted back to bed then at 9 am he was having difficulty moving his right side. In ED, pt reported right knee, elbow, and shoulder pain. Xray all negative for fractures. He also had work up for TIA/CVA as pt was not moving his Right UE and LE. on command. Pt able to intermittently spontaneously move his right side. Pt was transferred to Med Surg unit for observation and further medical monitoring/management PMHX: PFSH All Active Problems (Updated 12/15/23 @ 16:30 by Tim Payton) Acute right-sided weakness (Acute) Dementia (Chronic) Hyponatremia (Chronic) CHF (congestive heart failure) (Chronic) Chronic hyponatremia (Acute) Shortness of breath (Acute) Nail dystrophy (Acute) Restrictive lung disease (Acute) Asthma (Chronic) Shortness of breath (Acute) Sebaceous cyst (Acute) Nasal obstruction (Acute) External nasal lesion (Acute) Hypertension (Chronic) Left lower lobe pneumonia (Acute) Bloating (Acute) Heme positive stool (Acute) Infected sebaceous cyst of skin (Acute) Trapped lung (Acute) Sacroiliitis (Acute) Depression (Chronic) Lymphedema (Acute) HTN (hypertension) with goal to be determined (Chronic) Obesity (Chronic) DNR (do not resuscitate) (Acute) Presence of cardiac pacemaker (Chronic) [employer] PPM MRI model L111 Serial # [id number] placed dual chamber 04/30/2017 for CHB at [facility]. 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 Most likely this is inflammatory tissue and not actually fluid. pt has had multiple taps. He was on a prolonged course of IV abx and has failed to resolve. This is a sequelae of this pericardial tamponade following disruption of his RA lead from pacemaker insertion. CHB (complete heart block) had permanent pacemaker implanted 2018 for thisHyponatremia, hypo-osmolarity, or hypo-osmolar hyponatremia Surgical History S/P laparoscopic cholecystectomy History of permanent cardiac pacemaker placement with subsequent repositioning Social History/Home Situation: Pt resides at the [facility]. He states he is wheelchair level for mobility and performs pivot transfers independently. Pt reports he does not walk at the [facility]. Equipment Owned/DME: wheelchair Subjective: Pt reports he got up to go to the bathroom and slid off his bed then his right arma nd leg started to hurt and he was having trouble moving it so they sent him here. Objective: [] General Observation: Male awke semi-reclined in bed with obtund abdomen. Mental Status: Alert and oriented to person and place Pain: right knee and posterior calf, right shoulder and elbow . 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: monitored via telemetry supine 92% seated 84% with expiratory wheezing ROM: Right Upper Extremity: Shoulder elevation limited to 90 degrees abduction to 90 degrees elbow full range of motion wrist and hand full range of motion with pain Left Upper Extremity: Within normal limits Right Lower Extremity: Hip flexion 90 degrees (limited by abdominal girth), internal rotation to neutral, abduction 5 degrees, knee flexion 70 degrees (with pain) extension lacking 5 degrees, ankle dorsiflexion to neutral with knee fle xion -5 degrees with knee extension Left Lower Extremity: Hip flexion 90 degrees (limited by abdominal girth) internal rotation to neutral abduction 10 degrees ,knee within normal limits, ankle dorsiflexion to neutral with knee flexion, -5 degrees with knee extension plantarflexion 15 degrees Strength: Right Upper Extremity: Flexion 3- / 5 ,abduction 2+/5, elbow extension 3- / 5, flexion 3/5, pronation supination 3/5, wrist extension 3 -/5, wrist flexion 3 - /5, grasp impaired, thumb opposition 3/5 Left Upper Extremity: 5/5 Right Lower Extremity: Hip flexion, hip abduction2-/5, hip internal rotation 2/5, knee flexion 2-/5, knee extension 2+/5 (limited by pain) ankle 3/5 in available range. Left Lower Extremity: Hip 3/5, knee 3+/5, ankle 3/5 Sensation: intact Bed Mobility/Transfers: rolling Max Assist of 2 d/t pain in right knee shoulder and elbow. supine to sit with HOB elevated to 30 degrees, Max A of 2 scooting forward min A sit to supine max A of 2. Transfer: unable Gait: unable Balance: Static Sitting: poor requires intermittent min A to sit at EOB Dynamic Sitting: poor Static Standing: NT Dynamic Standing: NT Special Tests: Mobility Limitations Standardized Measure [facility] AM-PAC 6 clicks Basic Mobility Inpatient Short Form: Raw Score: 7 CMS Score: 92.36% Informed Consent/Education: Patient instructed in purpose of PT consult and plan of care. Assessment: Patient presents with increased pain right knee, right shoulder, right elbow and right hand limiting active movement. Patient demonstrates right knee medial joint space tenderness to touch and tenderness with valgus varus stress to joint. Patient position of comfort is supine in frog-leg position with hips in external rotation abduction knee slightly flexed and plantarflexion of bilateral ankles. When knee immobilized patient able to perform hip flexion with active assist and ankle foot motions within available range of motion. Patient reports pain with active knee movement although when knee joint alignment maintained patient able to actively assist range of motion to 45 degrees of flexion. Right shoulder patient reports pain along superior glenohumeral joint. Patient with ecchymotic area to right forearm to elbow with pain to touch. Able to actively perform full range of motion elbow on command. Patient with impaired active wrist extension with noted slight wrist flexion at rest. Patient is a 73year old male referred to physical therapy services with the diagnosis of right-sided weakness. Patient presents with clinical signs and symptoms consistent with ad mitting diagnosis, as demonstrated by the following impairment level findings: 1. Increased pain Right knee ,shoulder and, elbow. 2. Decreased strength right upper extremity and right knee major muscle groups 3. Impaired sitting balance 4. Impaired activity tolerance 5. Limitation of joint range of motion in right shoulder and right knee Impairments are contributing to the following functional limitations: 1. AMPAC score of 7 2. Declining bed mobility skills 3. Declining transfer skills 4. Increased risk for falls 5. Declining locomotion skills/wheelchair mobility 6. Increased time to complete mobility/ADL performance Patient is assessed as a Moderate 39487 complexity based on the following: History: 73-year-old man with past medical history as stated above Examination: Demonstrates impairments in strength, range of motion, balance, pain and mobility level with underlying impairments and functional limitations as outlined above Presentation: Evolving Decision Making: Moderate Goals: Goals X1 week 1. Supine-Sit mod assist of 1 2. Sit-Supine mod assist of 1 3. Bed-Chair mod assist of 1 4. Chair-Bed mod assist of 1 5. Patient will sit at edge of bed with supervision in prep for transfers Plan of Care/Treatment Plan: 1-2x/day, 7 days/week x 1 week. Plan of care has been reviewed with the FISHERY DIVISION CHIEF providing the service under Physical Therapy direction. Initiate Physical Therapy intervention for strengthening, bed mobility, transfers, gait, stairs, balance training, use of assistive device. DISCHARGE RECOMMENDATIONS: [] Home with no services [] [] Home with services [specify] [] Home with outpatient PT [] [] SNF for continued rehabilitation [] [x] [employer] [facility] with skilled physical therapy to return to prior level of function when medically stable/appropriate for discharge [] SNF versus LTC based on ability to participate and progress [] TREATMENT CODE/TIME: 20034, 57441/ [id number], [id number] Please sign an return this page within 30 days if you agree with the above POC. Thank you! Physician Signature Date [facility]
[2023-12-16] MEDS: Normal Saline Flush 10 ML SYR IVP ×2 (09:34→19:41)
[2023-12-16] MEDS: Fluticasone NASAL SPRAY 16 GM BTL NS ×2 (10:13→19:47)
[2023-12-16] MEDS: Albuterol HFA 8 GM 60 PUFF INH IH ×3 (11:04→18:01)
--- NOTE | 2023-12-16 13:39 | PHA.REVIEW2 ---
Pharmacy Admission Review Admission Clinical Review Admission Pharmacy Review: Leukocytosis (Acute) Acute right-sided weakness (Acute) Acute right-sided weakness (Acute) Chronic hyponatremia (Acute) No Known Allergies Allergy (Verified 08/16/23 19:43) Resuscitation Status DNR/DNI Height 5 ft 9 in Weight 115 kg Pharmacy Admission Review Renal Dosing Renal Dosing: BUN 12 mg/dL (7-18) 12/15/23 10:34 Creatinine 0.8 mg/dL (0.70-1.30) 12/15/23 10:34 Medications needing adjustments: Reviewed (CrCl 82.27 mL/min) List of meds needing interventions: Current medications are okay Anticoagulation Anticoagulation: Hgb 12.4 g/dL (13.5-17.5) L 12/16/23 05:27 Hct 37.6 % (40.0-50.0) L 12/16/23 05:27 Plt Count 206 10^3/uL (130-400) 12/16/23 05:27 Creatinine 0.8 mg/dL (0.70-1.30) 12/15/23 10:34 DVT Prophylaxis: Reviewed (Hgb decreased from 13.3 and Hct decreased from 14) Medications: Enoxaparin (40mg daily) Opiate Usage Evaluate Pain Scale/Pains Meds: Reviewed (fentanyl 12mcg patch) Scheduled Bowel Reg ordered if on Opiates?: Yes (daily senna/docusate) Relevant Labs Relevant Labs: Sodium 138 mmol/L (136-145) 12/15/23 10:34 Potassium 4.3 mmol/L (3.5-5.1) 12/15/23 10:34 Chloride 98 mmol/L (98-107) 12/15/23 10:34 Magnesium 1.8 mg/dL (1.8-2.4) 12/15/23 10:34 C-Reactive Protein 1.39 mg/dL (<or=0.5) H 12/15/23 16:43 Electrolytes, C-Reactive P, ESR: Reviewed (no new labs for today) Cardiac Review Cardiac Review: Troponin I 15 ng/L (<or=76) 12/15/23 13:38 BP, HR, EF%: Reviewed (BP and HR WNL, Ox 90) List meds needing interventions: Has order for furosemide 20mg BID, metoprolol XL 200mg daily and spironolactone 50mg daily QTc Review QTc: Reviewed (481 from 12/15/23) IV to PO Switch IV Medications: Reviewed Home Meds Home Med List reviewed: Intervened Relevent Home Meds Not ordered & why?: Tussin and Trelegy (substituted with Symbicort and Spiriva per pharmacy protocol) Dupixent order is pending, uses every 2 weeks. Asked nursing to see when patient would be due for this, waiting to hear back. Bubble pack of patients Zenpep was brought in from home today. Popped 3 into bottle and sent to floor. Discontinued order for Creon and resumed the patients own Zenpep order. Sodium chloride tablets were not brought in. Current Meds Current Medication Order Review: Reviewed Pharmacy Antibiotic Review Relevant Labs: Relevant Labs 12/15/23 16:43 C-Reactive Protein 1.39 H
--- NOTE | 2023-12-16 13:59 | PDOC.CMIN ---
Date of service: 12/16/23 Time of Service: 13:59 Care Management Initial Assmt Initial Assessment Reason for Hospitalization: Acute right sided weakness Functional Status/Living Situation Patient Presentation: Tim was sitting up in bed when CM met with him. He had just finished taking his AM medications and was feeling bloated. Tim shares that he has lived at [facility] for 5 years and he likes it there. His daughter Adriana lives locally and she is very supportive. Town of Residence: [place] Resides with: Other ([facility]) Significant Other/Family: Local (Adriana) Employment Status: Disabled Instrumental Activities of Daily Living (ADLs): Requires support Medications Medication Management: No Issues/Barriers identified Physical Functioning/Mobility Assistive Device: Wheel chair Advance Directives Advance Directives: Do you have an Advance Directive: N 08/16/23 20:18 AD On File at [facility]: N 08/16/23 20:18 Date Asked 08/16/23 08/16/23 20:18 AD Date Reviewed COLST On File at [facility] Yes 12/04/21 08:47 COLST Date Scanned 06/21/21 12/04/21 08:47 Code Status Resuscitation Status DNR/DNI Portal Pt does not currently have a portal and education provided: Yes Insurance Coverage/Financial Issues Insurance: Medicaid Medicare Financial Issues: None identified Care Team Visit Care Team Role Provider Type Monalisa Dong Primary Care Provider NON-[facility] STAFF PHYSICIAN Isabella Weston Other Providers OTHER Jack Gutierrez MD Emergency Provider [facility] STAFF PHYSICIAN Tim Payton Admit Provider [facility] STAFF PHYSICIAN Attending Provider Discharge Potential Discharge Needs: Other Anticipated Barriers to Discharge: None Identified Patient/Family Education Needs: Review discharge instructions, discuss Ask Me Three Transportation: RCT Plan: Anticipate, Tim will discharge back to [facility] when medically ready to discharge with close follow up with community/ facility providers. Transportation is dependent on his mobility at the time of discharge, most likely will be RCT w/c van. CM will follow continue to follow and support discharge planning considerations. PFSH All Active Problems (Updated 12/15/23 @ 17:07 by Jack Gutierrez MD) Leukocytosis (Acute) Acute right-sided weakness (Acute) Acute right-sided weakness (Acute) Dementia (Chronic) Hyponatremia (Chronic) CHF (congestive heart failure) (Chronic) Chronic hyponatremia (Acute) Shortness of breath (Acute) Nail dystrophy (Acute) Restrictive lung disease (Acute) Asthma (Chronic) Shortness of breath (Acute) Sebaceous cyst (Acute) Nasal obstruction (Acute) External nasal lesion (Acute) Hypertension (Chronic) Left lower lobe pneumonia (Acute) Bloating (Acute) Heme positive stool (Acute) Infected sebaceous cyst of skin (Acute) Trapped lung (Acute) Sacroiliitis (Acute) Depression (Chronic) Lymphedema (Acute) HTN (hypertension) with goal to be determined (Chronic) Obesity (Chronic) DNR (do not resuscitate) (Acute) Presence of cardiac pacemaker (Chronic) [employer] PPM MRI model L111 Serial # [id number] placed dual chamber 04/30/2017 for CHB at [facility]. 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 Most likely this is inflammatory tissue and not actually fluid. pt has had multiple taps. He was on a prolonged course of IV abx and has failed to resolve. This is a sequelae of this pericardial tamponade following disruption of his RA lead from pacemaker insertion. Hyponatremia, hypo-osmolarity, or hypo-osmolar hyponatremia Surgical History S/P laparoscopic cholecystectomy History of permanent cardiac pacemaker placement with subsequent repositioning Family History Son Alcohol use disorder Social History Smoking/Tobacco Use Status: Former Tobacco Use tobacco type: smokeless tobacco Smoking risk assessment performed?: Yes Alcohol Intake: current Alcohol Intake frequency: 0-2 drinks per day Alcohol type: beer Drug use: Never Substance use type: does not use Housing: senior living Pets and animals: No Do you feel safe at home: Yes Do you feel safe in your relationship?: Yes Additional Social history: 2 sons cirrhosis/EtOH, has been in [facility](Care Management) Screening Will the Patient Participate in the Screening?: Yes Do you worry about having a steady place to live?: no Problems where you live: no known problems In the past 12 months, have you had to go without electric, gas, oil or water in your home?: no Have you or anyone in your house had to go without enough food to eat?: no Has lack of transportation kept you from medical appointments or from doing things needed for daily living?: no Has anyone in your support network made you feel unsafe for any reason?: no
--- NOTE | 2023-12-16 14:56 | PGE_ITS ---
Date of Service Date of service: 12/16/23 Time of Service: 14:56 Assessment and Plan Assessment and plan (1) CVA (cerebral vascular accident): Status: Acute Assessment and plan: With right-sided deficits Unable to obtain MRI here due to pacemaker, can obtain outpatient at appropriate imaging center Telemetry neuroconsultation with recommendations for dual antiplatelet therapy for 3 weeks, will be loaded with 300 mg today Continue aspirin statin add clopidogrel PT/OT Continue telemetry monitoring for now will need to be discharged on a clinical research monitor no evidence of A-fib noted on telemetry (2) Chronic hyponatremia: Status: Acute Assessment and plan: normal today, on NaCl tablets (3) Depression: Status: Chronic Assessment and plan: Denies active depression, continue sertraline. (4) CHF (congestive heart failure): Status: Chronic Assessment and plan: history of HFpEF, continue outpatient diuretics. Qualifiers: Heart failure type: diastolic Heart failure chronicity: chronic Qualified Code(s): I50.32 - Chronic diastolic (congestive) heart failure (5) Dementia: Status: Chronic Assessment and plan: Mild per daughter. 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 Not acutely active. Continue outpatient inhalers. Qualifiers: Asthma severity: severe Asthma persistence: persistent Asthma complication type: unspecified Qualified Code(s): J45.50 - Severe persistent asthma, uncomplicated (7) DVT prophylaxis: Status: Acute Assessment and plan: enoxaparin Subjective Subjective Interval history since last seen: still with right sided weakness, no difficulty swallowing, no confusion, denies headache or visual disturbance. tolerating PO intake well, no difficulty swallowing. no speech deficits. Objective Last Vital Signs Temp 36.7 C 12/16/23 14:13 Pulse 63 12/16/23 14:13 Resp 21 12/16/23 14:13 BP 112/77 12/16/23 14:13 Pulse Ox 91 L 12/16/23 14:13 Laboratory Results - last 24 hr 12/15/23 12/16/23 16:43 05:27 WBC 11.79 H RBC 3.71 L Hgb 12.4 L Hct 37.6 L MCV 101 H MCH 33.4 H MCHC 33.0 RDW 12.6 Plt Count 206 MPV 12.8 H Immature Gran % 0.7 Neutrophils % 71.7 Lymphocytes % 16.5 Monocytes % 9.0 Eosinophils % 1.4 Basophils % 0.7 Nucleated RBC % 0.0 Absolute Neutrophils 8.45 H Absolute Lymphocytes 1.95 Absolute Monocytes 1.06 H Absolute Eosinophils 0.17 Absolute Basophils 0.08 Hemoglobin A1c 5.6 C-Reactive Protein 1.39 H Triglycerides 60 Total Cholesterol 141 LDL Cholesterol, Calc 81 HDL Cholesterol 48 PAWSS Have you Been Recently Intoxicated or Drunk Within the Last 30 days?: No Have you Ever Experienced Previous Episodes of Alcohol Withdrawal?: No Have you ever Experienced Withdrawal Seizures?: No Have you ever Experienced Delirium Tremens(DT)s?: No Have you ever undergone Alcohol Rehabilitation Treatment (i.e, inpt ot outpatient treatment programs)?: No Have you ever Experienced Blackouts?: No Have you ever Combined Alcohol with other Downers within the last 90 days?: No Have you ever Combined Alcohol with any other Substance of Abuse during the last 90 days?: No Positive Blood Alcohol level on Presentation? [PCS.BAL]: No Evidence of Increased Autonomic Activity (i.e. HR>120, tremor, sweating, agitation, nausea)?: No Result: 0 Time Spent with Patient Time Spent with Patient: >50 minutes Time was spent: preparing to see the patient(eg.review tests), obtaining and/or reviewing separately otained hiistory, ordering medications,tests, procedures, referring, communicating with other health youth career specialist, indepentently interpreting results and counseling the patient
[2023-12-16] MEDS: Clopidogrel 300 MG TAB PO (15:51)
[2023-12-16] MEDS: Enoxaparin 40 MG/0.4 ML SYR SC (17:11)
--- NOTE | 2023-12-16 17:20 | CHAPLAIN ---
I had a brief visit with Tim and explained my role and offered support. He was having a smoothy. Tim lives at [facility] and is supported by his daughter Melissa.
[2023-12-16] MEDS: Melatonin 3 MG TAB PO (19:40)
[2023-12-17] VITALS (7 sets, daily range): BP systolic 108–134; BP diastolic 74–89; PULSE 60–66; RESP 14–18; TEMP 36.2–36.9; O2SAT 89–94
[2023-12-17] MEDS: Benzonatate 100 MG CAP PO ×2 (03:11→17:48)
[2023-12-17] MEDS: guaiFENesin/D-METHORPHAN HB 5 ML CUP 10 ML PO ×2 (03:11→17:48)
[2023-12-17 07:08] LABS: Abs Immature Grans 0.11 10^3/uL (0.0-0.06); Absolute Eosinophil Count 0.06 10^3/uL (0.0-0.7); Absolute Lymphocyte Count 1.73 10^3/uL (1.2-3.4); Absolute Monocyte Count 1.45 10^3/uL (0.1-0.8); Basophils % 0.3 %; Eosinophils % 0.4 %; HGB 12.7 g/dL (13.5-17.5); Immature Grans % 0.7 %; Lymphocytes % 10.9 %; MCH 33.5 pg (27.0-33.0); MCHC 33.4 % (32.0-36.0); MCV 100 fL (80-95); MPV 12.1 fL (8.0-11.0); Monocytes % 9.1 %; Neutrophils % 78.6 %; Platelet Count 211 10^3/uL (130-400); RBC 3.79 10^6/uL (4.36-5.78); RDW 12.8 % (11.8-14.1); RDW-SD 47.6 fL; WBC 15.89 10^3/uL (4.4-10.8)
[2023-12-17 07:13] LABS: Absolute Basophil Count 0.05 10^3/uL (0.0-0.2); Absolute Neutrophil Count 12.49 10^3/uL (1.2-6.7)
[2023-12-17 07:24] LABS: ALT 22 U/L (16-63); AST 28 U/L (15-37); Albumin 2.9 g/dL (3.4-5.0); Alkaline Phosphatase 91 U/L (46-116); Anion Gap 9.6 mmol/L (3-11); BUN 19 mg/dL (7-18); CO2 28.4 mmol/L (21.0-32.0); CREATININE 0.8 mg/dL (0.70-1.30); Calcium 9.2 mg/dL (8.5-10.1); Chloride 99 mmol/L (98-107); Estimated GFR 93.45 (mL/min/1.73m2); Glucose 107 mg/dL (74-106); Potassium 3.2 mmol/L (3.5-5.1); Sodium 137 mmol/L (136-145); Total Protein 7.7 g/dL (6.4-8.2)
--- NOTE | 2023-12-17 08:00 | DI.CT_ITS ---
Exam(s) CT HEAD WO EXAM: CT HEAD WO CLINICAL HISTORY: CVA, unable to get MRI here, initial negative. TECHNIQUE: Imaging Protocol: Axial computed tomography images with coronal and sagittal reformatted images were created and reviewed COMPARISON: CT CT HEAD WO from 03/17/2022 CR XR CHEST 2V PA LATERAL from 08/11/[address] HEAD - STROKE PROTOCOL from 12/15/[address] BRAIN NECK CTA from 12/15/2023 FINDINGS: Ventricles and Extra axial spaces: Normal in size and morphology for the patient's age. Hemorrhage: None. Cerebral parenchyma: There is a new area of decreased attenuation anterior and superior to the anteri or horn of the left lateral ventricle in the left frontal lobe. This may represent a subacute infarc t. There are areas of decreased attenuation in the white matter consistent with chronic microvascula r ischemic disease. Midline shift: None. Brainstem/Cerebellum: Normal. Calvarium: Normal. Visualized Paranasal sinuses/Mastoids: Clear. Soft Tissues: Unremarkable. IMPRESSION: New area of decreased attenuation in the medial aspect of the left frontal lobe suspicious for subacu te infarct. RADIATION DOSE DELIVERED: 863.92mGy.cm Total DLP DATA REPOSITORY: All CT scans at this facility are submitted to the National Radiology Data Registry (NRDR) Dose Index Registry (DIR) with the [employer] [place] [employer] (ACR). RADIATION OPTIMIZATION: All CT scans at this facility use at least one of these dose optimization te chniques: automated exposure control; mA and/or kV adjustment per patient size (includes targeted exa ms where dose is matched to clinical indication); or iterative reconstruction.
[2023-12-17] MEDS: Vitamins B Comp w/C TAB 1 TAB PO (08:08)
[2023-12-17] MEDS: Sennosides/Docusate Sodium TAB 2 TAB PO (08:08)
[2023-12-17] MEDS: Colestipol 1 GM TAB 2 GM PO ×2 (08:08→20:16)
[2023-12-17] MEDS: Spironolactone 25 MG TAB 50 MG PO (08:09)
[2023-12-17] MEDS: Magnesium Gluconate 500 MG TAB PO ×2 (08:09→20:16)
[2023-12-17] MEDS: Atorvastatin 40 MG TAB 80 MG PO (08:09)
[2023-12-17] MEDS: Acetaminophen 500 MG TAB 1000 MG PO ×2 (08:09→20:16)
[2023-12-17] MEDS: Pantoprazole 40 MG TABCR PO (08:09)
[2023-12-17] MEDS: Metoprolol CR 100 MG TABCR 200 MG PO (08:10)
[2023-12-17] MEDS: Aspirin 81 MG CHEW PO (08:10)
[2023-12-17] MEDS: Furosemide 20 MG TAB PO ×2 (08:10→15:35)
[2023-12-17] MEDS: Sertraline 50 MG TAB PO (08:10)
[2023-12-17] MEDS: Fluticasone NASAL SPRAY 16 GM BTL NS ×2 (08:10→23:51)
[2023-12-17] MEDS: Clopidogrel 75 MG TAB PO (08:10)
[2023-12-17] MEDS: Memantine 5 MG TAB PO ×2 (08:10→20:16)
[2023-12-17] MEDS: Loratidine 10 MG TAB PO (08:10)
[2023-12-17] MEDS: Normal Saline Flush 10 ML SYR IVP ×2 (08:10→20:17)
--- NOTE | 2023-12-17 09:24 | CMPROGNOTE_ITS ---
Date of service: 12/17/23 Time of Service: 09:24 Care Management Progress Note Progress Note Text Progress Note Text: Tim was lying in bed, watching TV when CM met with him. He is pleasant and easily engages in conversation. He is being closely monitored and treated for an acute CVA and pneumonia. He has a productive cough and is currently on IV ABX and duonebs. His right sided weakness is improved and he is working with PT. Tim will be going back to the [facility] with a cardiac care unit nurse when medically ready. CM provided updates to Patsy from the 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. Discharge Potential Discharge Needs: Imaging/labs and PCP F/U Appt Anticipated Barriers to Discharge: Medical Status Patient/Family Education Needs: Review discharge instructions, discuss Ask Me Three Transportation: [facility] ([facility] W/C van, coordinated by CM) Plan: Anticipate, Tim will discharge back to the [facility] with a cardiac care unit nurse when medically ready to discharge. He will follow up with community/ facility providers and his discharge plan of care as prescribed. Transportation is dependent on his mobility at the time of discharge, most likely will be [facility] w/c van. CM will follow continue to follow and support discharge planning considerations. SDOH(Care Management) Screening Will the Patient Participate in the Screening?: Yes Do you worry about having a steady place to live?: no Problems where you live: no known problems In the past 12 months, have you had to go without electric, gas, oil or water in your home?: no Have you or anyone in your house had to go without enough food to eat?: no Has lack of transportation kept you from medical appointments or from doing things needed for daily living?: no Has anyone in your support network made you feel unsafe for any reason?: no
[2023-12-17] MEDS: Albuterol HFA 8 GM 60 PUFF INH IH ×3 (11:11→19:36)
[2023-12-17] MEDS: Tiotropium Bromide-Respimat 10 PUFF INH 2 PUFF IH (11:11)
[2023-12-17] MEDS: Budesonide/Formoterol 160/4.5 6 GM 60 PUFF INH IH ×2 (11:12→19:37)
--- NOTE | 2023-12-17 11:15 | DI.RAD_ITS ---
Exam(s) XR PORTABLE CHEST AP EXAM: XR PORTABLE CHEST AP CLINICAL HISTORY: increased cough, sputum TECHNIQUE: 2D digital imaging was performed of the chest. One image was obtained. An AP view was ob tained. COMPARISON: CR XR PORTABLE CHEST AP from 03/12/2022 CR XR CHEST 2V PA LATERAL from 08/11/2023 CR,XR XR CHEST 2V PA LATERAL from 08/16/2023 FINDINGS: Examination is limited by poor inspiration. MEDIASTINUM: Normal. HEART: Cardiomegaly. There is a pacing device in place. PULMONARY VASCULATURE: Normal. LUNGS: The left lung base and left hemidiaphragm are not well visualized. The possibility of the lef t basilar infiltrate should be considered. No focal consolidating infiltrate is definitely seen in t he right hemithorax. PLEURAL SPACE: No pleural effusion or pneumothorax. Pleural calcifications are again seen in the righ t hemithorax. BONE:Within normal limits for the patient's age. OTHER FINDINGS:Normal. IMPRESSION: 1. Examination is limited by poor inspiration. 2. There is a question of an infiltrate involving the left lung base. This may represent atelectasis or pneumonia. DATA REPOSITORY: RADIATION DOSE DELIVERED:
[2023-12-17] MEDS: cefTRIAXone 2 GM/50 ML BAG IVPB (11:20)
[2023-12-17] MEDS: DOXYCYCLINE 100 MG in Normal Saline 100 ML IVPB ×2 (12:19→23:51)
--- NOTE | 2023-12-17 15:20 | W.PM.PROGNOT ---
Date of Service Date of service: 12/17/23 Time of Service: 15:20 Assessment and Plan Assessment and plan (1) CVA (cerebral vascular accident): Status: Acute Assessment and plan: With right-sided deficits Unable to obtain MRI here due to pacemaker, can obtain outpatient at appropriate imaging center Telemetry neuroconsultation with recommendations for dual antiplatelet therapy for 3 weeks, was loaded with 300 mg 12/15 Continue aspirin statin add clopidogrel PT/OT Continue telemetry monitoring for now will need to be discharged on a monitor technician no evidence of A-fib noted on telemetry (2) Chronic hyponatremia: Status: Acute Assessment and plan: normal, on NaCl tablets (3) Depression: Status: Chronic Assessment and plan: Denies active depression, continue sertraline. (4) CHF (congestive heart failure): Status: Chronic Assessment and plan: history of HFpEF, continue outpatient diuretics. Qualifiers: Heart failure chronicity: chronic Heart failure type: diastolic Qualified Code(s): I50.32 - Chronic diastolic (congestive) heart failure (5) Dementia: Status: Chronic Assessment and plan: Mild per daughter. 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 Not acutely active. Continue outpatient inhalers. Qualifiers: Asthma complication type: unspecified Asthma persistence: persistent Asthma severity: severe Qualified Code(s): J45.50 - Severe persistent asthma, uncomplicated (7) DVT prophylaxis: Status: Acute Assessment and plan: enoxaparin discussed with Dr Payton Subjective Subjective Patient reports: no new complaints and afebrile; denies tolerating a regular diet (poor po intake at baseline) or shortness of breath Exam Const General: cooperative, comfortable and no acute distress Nutritional Appearance: overweight Orientation: alert, awake, oriented to person and oriented to place [facility] Head: normal to inspection, normocephalic and atraumatic Ears: hearing grossly normal bilaterally Face and sinus: face asymmetric (right sided droop) Mouth: oral mucosae normal Throat: posterior oropharynx normal Eyes General: appearance normal, both eyes and all related structures Neck Neck: normal visual inspection, full ROM and no JVD Chest Chest: normal inspection of the chest Resp Effort & Inspection: normal respiratory effort Auscultation: diminished lung sounds bilaterally Cardio Rate: regular rate Rhythm: regular rhythm GI Inspection: normal to inspection (round) Palpation: soft Auscultation: normal bowel sounds Skin General skin exam: no rashes or lesions noted Neuro General: patient alert, patient awake, moves all extremities (right sided profoundly weak) and focal motor deficits present Cranial Nerves: gag reflex normal Cognition: normal cognition Speech: speech normal Motor: strength abnormal (right upper and lower) Extrem General: normal to inspection and full ROM Psych Affect: blunted Objective Last Vital Signs Temp 36.5 C 12/17/23 11:29 Pulse 65 12/17/23 11:29 Resp 18 12/17/23 11:29 BP 120/78 12/17/23 11:29 Pulse Ox 93 12/17/23 11:29 Laboratory Results - last 24 hr 12/17/23 06:05 WBC 15.89 H RBC 3.79 L Hgb 12.7 L Hct 38.0 L MCV 100 H MCH 33.5 H MCHC 33.4 RDW 12.8 Plt Count 211 MPV 12.1 H Immature Gran % 0.7 Neutrophils % 78.6 Lymphocytes % 10.9 Monocytes % 9.1 Eosinophils % 0.4 Basophils % 0.3 Nucleated RBC % 0.0 Absolute Neutrophils 12.49 H Absolute Lymphocytes 1.73 Absolute Monocytes 1.45 H Absolute Eosinophils 0.06 Absolute Basophils 0.05 Sodium 137 Potassium 3.2 L D Chloride 99 Carbon Dioxide 28.4 Anion Gap 9.6 BUN 19 H Creatinine 0.8 Est GFR (CKD-EPI 2020) 93.45 Glucose 107 H Calcium 9.2 Total Bilirubin 0.70 AST 28 ALT 22 Alkaline Phosphatase 91 Total Protein 7.7 Albumin 2.9 L PAWSS Have you Been Recently Intoxicated or Drunk Within the Last 30 days?: No Have you Ever Experienced Previous Episodes of Alcohol Withdrawal?: No Have you ever Experienced Withdrawal Seizures?: No Have you ever Experienced Delirium Tremens(DT)s?: No Have you ever undergone Alcohol Rehabilitation Treatment (i.e, inpt ot outpatient treatment programs)?: No Have you ever Experienced Blackouts?: No Have you ever Combined Alcohol with other Downers within the last 90 days?: No Have you ever Combined Alcohol with any other Substance of Abuse during the last 90 days?: No Positive Blood Alcohol level on Presentation? [PCS.BAL]: No Evidence of Increased Autonomic Activity (i.e. HR>120, tremor, sweating, agitation, nausea)?: No Result: 0 Time Spent with Patient Time Spent with Patient: 35-49 minutes Time was spent: preparing to see the patient(eg.review tests), obtaining and/or reviewing separately otained hiistory, ordering medications,tests, procedures, indepentently interpreting results and counseling the patient
[2023-12-17 15:47] LABS: Lab Add On Test DONE
[2023-12-17] MEDS: Potassium Chloride 20 MEQ TABCR PO (17:08)
[2023-12-17] MEDS: Enoxaparin 40 MG/0.4 ML SYR SC (17:08)
--- NOTE | 2023-12-17 17:27 | PTTR_ITS ---
PT Notes Visit Reasons: right sided weakness Inpatient Physical Therapy Treatment Note [facility] Date: 12-17-2023 PRECAUTIONS: Standard, fall risk telemetry SUBJECTIVE: Patient reports he is not getting out of bed today he cannot he was moved around too much for his CAT scan and now during management of bowel incontinence OBJECTIVE: Patient noted with dyspnea on exertion during rolling. Patient incontinent of liquid stool nursing aware? PAIN: Right upper extremity and lower extremity 08/10 VITALS: O2 sats on room air 92% Therapeutic Activities ([id number] 2): Direct one-on-one instruction in dynamic activities to improve functional performance. ?? Provided skilled cues and instruction on performance and technique throughout. ? BED MOBILITY/TRANSFERS? Rolling L/R: With use of bed rails max assist of 3 for incontinence care Boosting up in bed; max assist of 3 patient instructed to utilize left lower extremity to assist in boost Patient refused attempts to sit at edge of bed and out of bed ? Therapeutic Exercises (32576q 1): Direct one-on-one instruction in therapeutic exercises to develop strength, endurance, range of motion and flexibility. ? Exercises; right lower extremity active assistive range of motion heel slides, hip internal rotation, hip abduction, short arc quad over rolled pillow, dorsiflexion x 10 reps patient performs same exercises active range of motion left lower extremity. Bilateral upper extremity active assistive range of motion shoulder flexion with cane, bicep curl with cane x 10 reps ? Provided skilled instruction in proper exercise performance Provided skilled manual cues to facilitate proper muscle recruitment and/or form: [] ASSESSMENT: Tim demonstrated increased active range of motion right upper extremity shoulder with less pain today as compared to assessment. He demonstrates slight right wrist drop although on command is able to actively extend wrist patient may benefit from OT consult. Patient continues with severe right knee pain right knee hinged orthosis not noted to make a difference in pain reduction. Patient declined out of bed assessment on this date due to frequent bowel movements and having moved CT scan. Patient educated on benefits of getting out of bed and need to return to his prior level of function that he was performing at the [facility]. Patient underwent repeat CT scan showing subacute left frontal infarct. PLAN:Pt would benefit from skilled PT 1-2 times per day for global strengthening, transfers, ambulation, pain management and balance facilitation TREATMENT CODE/TIME: First session [id number] for 20 minutes/950?1010; second session 93155 x 24 minutes for 2 units/1600?1624 DISCHARGE RECOMMENDATION: Return to the [facility] with skilled PT and OT as indicated when medically appropriate
[2023-12-17] MEDS: Melatonin 3 MG TAB PO (20:16)
[2023-12-17] MEDS: guaiFENesin 600 MG TABCR PO (20:16)
[2023-12-18 03:16] VITALS: BP 126/83; PULSE 68; RESP 14; TEMP 36.3; O2SAT 91
[2023-12-18 06:44] LABS: Abs Immature Grans 0.09 10^3/uL (0.0-0.06); Absolute Eosinophil Count 0.07 10^3/uL (0.0-0.7); Absolute Neutrophil Count 13.42 10^3/uL (1.2-6.7); Basophils % 0.2 %; Eosinophils % 0.4 %; HCT 36.5 % (40.0-50.0); HGB 12.2 g/dL (13.5-17.5); Immature Grans % 0.5 %; Lymphocytes % 10.2 %; MCH 33.6 pg (27.0-33.0); MCHC 33.4 % (32.0-36.0); MCV 101 fL (80-95); Monocytes % 8.9 %; Neutrophils % 79.8 %; Platelet Count 193 10^3/uL (130-400); RBC 3.63 10^6/uL (4.36-5.78); RDW 12.6 % (11.8-14.1); WBC 16.82 10^3/uL (4.4-10.8)
[2023-12-18 06:54] LABS: Absolute Basophil Count 0.03 10^3/uL (0.0-0.2); Absolute Lymphocyte Count 1.72 10^3/uL (1.2-3.4)
[2023-12-18 07:02] LABS: Anion Gap 9.7 mmol/L (3-11); BUN 16 mg/dL (7-18); CO2 28.3 mmol/L (21.0-32.0); CREATININE 0.6 mg/dL (0.70-1.30); Calcium 8.7 mg/dL (8.5-10.1); Chloride 101 mmol/L (98-107); Estimated GFR 101.93 (mL/min/1.73m2); Glucose 98 mg/dL (74-106); Magnesium 1.7 mg/dL (1.8-2.4); Potassium 3.1 mmol/L (3.5-5.1); Sodium 139 mmol/L (136-145)
[2023-12-18 08:16] VITALS: BP 104/73; PULSE 67; RESP 18; TEMP 36.3; O2SAT 93
[2023-12-18] MEDS: Albuterol HFA 8 GM 60 PUFF INH IH ×2 (08:37→13:32)
[2023-12-18] MEDS: Budesonide/Formoterol 160/4.5 6 GM 60 PUFF INH IH (08:38)
[2023-12-18] MEDS: Tiotropium Bromide-Respimat 10 PUFF INH 2 PUFF IH (08:39)
[2023-12-18] MEDS: Colestipol 1 GM TAB 2 GM PO (08:49)
[2023-12-18] MEDS: Sennosides/Docusate Sodium TAB 2 TAB PO (08:49)
[2023-12-18] MEDS: Acetaminophen 500 MG TAB 1000 MG PO (08:50)
[2023-12-18] MEDS: Furosemide 20 MG TAB PO (08:50)
[2023-12-18] MEDS: Atorvastatin 40 MG TAB 80 MG PO (08:50)
[2023-12-18] MEDS: Potassium Chloride 20 MEQ TABCR PO ×2 (08:50→12:06)
[2023-12-18] MEDS: Memantine 5 MG TAB PO (08:50)
[2023-12-18] MEDS: Pantoprazole 40 MG TABCR PO (08:50)
[2023-12-18] MEDS: Clopidogrel 75 MG TAB PO (08:50)
[2023-12-18] MEDS: Metoprolol CR 100 MG TABCR 200 MG PO (08:50)
[2023-12-18] MEDS: Loratidine 10 MG TAB PO (08:51)
[2023-12-18] MEDS: Magnesium Gluconate 500 MG TAB PO (08:51)
[2023-12-18] MEDS: Sertraline 50 MG TAB PO (08:51)
[2023-12-18] MEDS: Spironolactone 25 MG TAB 50 MG PO (08:51)
[2023-12-18] MEDS: Normal Saline Flush 10 ML SYR IVP (08:51)
[2023-12-18] MEDS: Vitamins B Comp w/C TAB 1 TAB PO (08:51)
[2023-12-18] MEDS: guaiFENesin 600 MG TABCR PO (08:51)
[2023-12-18] MEDS: Aspirin 81 MG CHEW PO (08:51)
[2023-12-18] MEDS: Fluticasone NASAL SPRAY 16 GM BTL NS (08:52)
--- NOTE | 2023-12-18 09:33 | DSE_ITS ---
Date of service: 12/18/23 Time of Service: 12:00 DS: Diagnosis Discharge Diagnosis (1) CVA (cerebral vascular accident): Status: Acute (2) Chronic hyponatremia: Status: Acute (3) Depression: Status: Chronic (4) CHF (congestive heart failure): Status: Chronic (5) Dementia: Status: Chronic (6) Asthma: Status: Chronic (7) DVT prophylaxis: Status: Acute Discharge Plan Disposition Patient Disposition: [facility]dc Facility(SNF) Condition: Improving Discharge Details Reason For Visit: Right Sided Weakness Admit Date/Time: 12/15/23 13:07 Admit Provider: Tim Payton Attending Provider: Tim Payton Primary Care Provider: Monalisa Dong Hospital Course Hospital Course: This 71-year-old male patient, living at the [facility] and with a past medical history of dementia, coronary artery disease, congestive heart failure, asthma and restrictive lung disease, chronic reducible pain, complete heart block with pacemaker and depression presented to the ED at [facility] on 12/15/2023 with complaint of new right-sided weakness. Reported history included going to bed in the ER of presentation then working up falling out of bed due to leg weakness around 6:30 AM. At the time EMS was called and right-sided weakness was noticed. On arrival to the ED the patient was unable to move his right arm and right leg while denying numbness. Initial CT of the head in the ED showed no acute intracranial process with unchanged encephalomalacia involving the cerebellum, left greater than right ; and areas of decreased attenuation in the white matter most consistent with chronic microvascular ischemic disease. CT of the neck was negative. The ED provider was unable to complete an MRI due to the in situ pacemaker . The patient remains symptomatic and the hospitalist was consulted and patient was admitted to the medical surgical floor for evaluation and management of stroke, right-sided weakness. Neurology consult completed recommendation to treat with dual antiplatelet therapy for 3 weeks, then aspirin only and high intensity statin per stroke protocol. A subsequent CT of the head on 12/17/2023 showed a new area of decreased attenuation in the medial aspect of the left frontal lobe suspicious for subacute infarct. Chest x-ray completed on 12/17/2023 showed questionable infiltrate involving the left lung base correlating to pneumonia versus atelectasis. The patient was treated with IV ceftriaxone and doxycycline for pneumonia. Today the patient will be discharged to the [facility] on Augmentin for 5 days. The patient will have to continue Plavix to complete a 21-day course of treatment and continue aspirin indefinitely as well as Lipitor. The patient will have a 30-day strand and binder controller on discharge; the patient did not display any sign of atrial fibrillation as per telemetry reading. MRI to be completed outpatient were decanted accommodate patients with pacemakers; this was ordered. Both hypokalemia and hypomagnesemia were corrected during the stay and recommendations are for follow-up electrolytes level evaluation after discharge as per the [facility] practitioner. The patient will have to continue occupational therapy and physical therapy at the [facility]. During the stay the patient had been declining physical therapy at the time due to feeling of tiredness. Discussed with Dr. Tavera Home Meds and New Rx's Prescriptions: New aspirin [Children's Aspirin] 81 mg Tablet,Chewable 81 mg PO DAILY Qty: 30 0RF atorvastatin 40 mg Tablet 80 mg PO DAILY Qty: 60 0RF benzonatate 100 mg Capsule 100 mg PO BID PRN PRN (Reason: Cough) Qty: 60 0RF clopidogrel 75 mg Tablet 75 mg PO DAILY Qty: 18 0RF guaifenesin [Mucus Relief ER] 600 mg Tablet Extended Release 12hr 600 mg PO BID Qty: 60 0RF amoxicillin-pot clavulanate 875-125 mg tablet 1 tab PO Q12H Qty: 10 0RF Continued fentanyl 12 mcg/hr patch 72 hour 1 patch transdermal Q72H ibuprofen 200 mg tablet 200 mg PO BID PRN Dupixent Pen 300 mg/2 mL pen injector 300 mg subcut Q2W loratadine 10 mg tablet 10 mg PO DAILY benzonatate 100 mg capsule 100 mg PO BID albuterol sulfate 90 mcg/actuation aerosol powdr breath activated 2 inh inhalation TID Rx Instructions: *and* q4h PRN calcium carbonate 215 mg calcium (500 mg) tablet,chewable 1,000 mg PO Q6H PRN fluticasone propionate 50 mcg/actuation spray,suspension 1 spray intranasal BID Rx Instructions: administer into each nostril Ultra B-100 Complex Tablet Extended Release 1 tab PO DAILY pantoprazole 40 mg tablet,delayed release (DR/EC) 40 mg PO DAILY polyethylene glycol 3350 [Miralax] 17 gram powder in packet 17 g PO DAILY PRN sennosides-docusate sodium [Senexon-S] 8.6-50 mg tablet 2 tab-cap PO DAILY sertraline 25 mg tablet 50 mg PO DAILY metoprolol succinate 200 mg tablet extended release 24 hr 200 mg PO DAILY Rx Instructions: Hold for HR < 60 memantine 5 mg tablet 5 mg PO BID Trelegy Ellipta 200-62.5-25 mcg blister with device 1 inh inhalation DAILY ipratropium-albuterol 0.5 mg-3 mg(2.5 mg base)/3 mL solution for nebulization 3 ml inhalation Q12H PRN PRN Zenpep 5,000-17,000- 24,000 unit capsule,delayed release(DR/EC) 1 cap PO TID melatonin 3 mg capsule 3 mg PO HS beer 1 unit PO 1XD PRN Rx Instructions: may have 2 beers by mouth daily 12 or 16oz,only 1 beer if 24oz container colestipol 1 gram tablet 2 g PO BID dextromethorphan-guaifenesin [Tussin DM] 10-100 mg/5 mL Liquid 10 ml PO Q4H PRN magnesium gluconate 500 mg Tablet 500 mg PO BID cholecalciferol (vitamin D3) [Vitamin D3] 125 mcg (5,000 unit) tablet 5,000 unit PO .weekly furosemide [Lasix] 20 mg tablet 20 mg PO BID Qty: 60 0RF spironolactone 25 mg tablet 50 mg PO DAILY Qty: 0 0RF Patient Comments: 06/05/22 on med list from [facility] acetaminophen [Tylenol Extra Strength] 500 mg tablet 1,000 mg PO Q12H Qty: 0 0RF sodium chloride 1,000 mg tablet,soluble 1,000 mg PO DAILY Discharge Instructions Instructions: Right-Side Stroke (DC) Stand Alone Forms: Nursing Discharge Form Activity:: Activity as Tolerated Equipment/Supplies:: Walker Diet:: heart healthy Discharge Orders Discharge Orders: Discharge Order (Routine); Ordered 12/18/23 Ordered By: Dinora Koch Other Ambulatory Orders: Cardiac Event Recorder (Routine) Timeframe: 20231218 Facility: [facility] - Location: Respiratory Therapy Ordered By: Dinora Koch MR brain wo (Routine) Timeframe: 10 Day Location: Determined by Patient Ordered By: Dinora Koch DS: Summary Time Spent with Patient providing and/or coordinating discharge services: Greater than 30 minutes Status at Discharge Functional status at discharge: uses cane/walker Overall status at discharge: patient is progressing back to baseline Mental Status: mental status grossly normal Speech and Movement: other (speech is normal ) Mood: congruent mood Affect: blunted Quality:SDOH Health Related Social Needs: No Data to Display Exam Const General: cooperative, comfortable and no acute distress Nutritional Appearance: overweight Orientation: alert, awake, oriented to person and oriented to place [facility] Head: normal to inspection, normocephalic and atraumatic Ears: hearing grossly normal bilaterally Face and sinus: face asymmetric (right sided droop) Eyes General: appearance normal, both eyes and all related structures Neck Neck: normal visual inspection, full ROM and no JVD Chest Chest: normal inspection of the chest Resp Effort & Inspection: normal respiratory effort Auscultation: diminished lung sounds bilaterally Cardio Rate: regular rate Rhythm: regular rhythm GI Inspection: normal to inspection (round) Palpation: soft Auscultation: normal bowel sounds Skin General skin exam: no rashes or lesions noted Neuro General: patient alert, patient awake, moves all extremities (right sided profoundly weak) and focal motor deficits present Cranial Nerves: gag reflex normal Cognition: normal cognition Speech: speech normal Motor: strength abnormal (right upper and lower) Extrem General: normal to inspection and full ROM Psych Appearance: grossly normal Mental Status: mental status grossly normal Speech and Movement: other (speech is normal ) Mood: congruent mood Affect: blunted DS: Data Vitals/I&O Vitals and I&O: Vital Signs Temperature 36.3 C L 12/18/23 08:16 Temperature Source Temporal Artery Scan 12/18/23 08:16 Pulse 67 12/18/23 08:16 Pulse Rhythm Regular 12/15/23 14:22 Pulse 60 12/15/23 13:50 Respiratory Rate 18 12/18/23 08:16 Respiratory Effort Normal 12/15/23 14:22 Respiratory Depth Normal 12/15/23 14:22 Respiratory Pattern Normal 12/15/23 14:22 Blood Pressure 104/73 12/18/23 08:16 Blood Pressure Mean 90 12/15/23 11:31 Blood Pressure Position Supine 12/15/23 10:48 Pulse Oximetry 93 12/18/23 08:16 Oxygen Delivery Method Room Air 12/18/23 08:16 Oxygen Flow Rate 0 12/18/23 08:16 Pain Level 0 10/17/24 08:43 Comment RT in room at this time 12/16/23 11:09 Intake & Output 12/17/23 12/17/23 12/18/23 11:59 23:59 11:59 Intake Total 150 / 150 110 / 110 Output Total 200 / 200 Balance -50 / -50 110 / 110 Weight 240 kg Intake: IV 150 / 150 110 / 110 Output: Urine 200 / 200 Other: Urine Color Light Eri Yellow Urine Appearance Clear Urine Odor None Normal Stool Size Large Small Large Stool Characteristics Liquid Liquid Soft Voiding Methods Diaper Diaper Diaper Incontinent Incontinent Data Completed and Pending Labs on day of discharge: Labs from last 24 hours 12/18/23 12/17/23 12/17/23 06:04 Unknown 06:05 WBC 16.82 H RBC 3.63 L Hgb 12.2 L Hct 36.5 L MCV 101 H MCH 33.6 H MCHC 33.4 RDW 12.6 Plt Count 193 MPV 12.0 H Immature Gran % 0.5 Neutrophils % 79.8 Lymphocytes % 10.2 Monocytes % 8.9 Eosinophils % 0.4 Basophils % 0.2 Nucleated RBC % 0.0 Absolute Neutrophils 13.42 H Absolute Lymphocytes 1.72 Absolute Monocytes 1.50 H Absolute Eosinophils 0.07 Absolute Basophils 0.03 Sodium 139 Potassium 3.1 L Chloride 101 Carbon Dioxide 28.3 Anion Gap 9.7 BUN 16 Creatinine 0.6 L Est GFR (CKD-EPI 2020) 101.93 Glucose 98 Calcium 8.7 Magnesium 1.7 L 2.0 Add-On Test Request DONE PFSH All Active Problems (Updated 12/16/23 @ 17:47 by Liliya Spicer NP) DVT prophylaxis (Acute) CVA (cerebral vascular accident) (Acute) Leukocytosis (Acute) Acute right-sided weakness (Acute) Acute right-sided weakness (Acute) Dementia (Chronic) Hyponatremia (Chronic) CHF (congestive heart failure) (Chronic) Chronic hyponatremia (Acute) Shortness of breath (Acute) Nail dystrophy (Acute) Restrictive lung disease (Acute) Asthma (Chronic) Shortness of breath (Acute) Sebaceous cyst (Acute) Nasal obstruction (Acute) External nasal lesion (Acute) Hypertension (Chronic) Left lower lobe pneumonia (Acute) Bloating (Acute) Heme positive stool (Acute) Infected sebaceous cyst of skin (Acute) Trapped lung (Acute) Sacroiliitis (Acute) Depression (Chronic) Lymphedema (Acute) HTN (hypertension) with goal to be determined (Chronic) Obesity (Chronic) DNR (do not resuscitate) (Acute) Presence of cardiac pacemaker (Chronic) [employer]ent[employer] PPM MRI model L111 Serial # [id number] placed dual chamber 04/30/2017 for CHB at [facility]. 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 Most likely this is inflammatory tissue and not actually fluid. pt has had multiple taps. He was on a prolonged course of IV abx and has failed to resolve. This is a sequelae of this pericardial tamponade following disruption of his RA lead from pacemaker insertion. Hyponatremia, hypo-osmolarity, or hypo-osmolar hyponatremia Surgical History S/P laparoscopic cholecystectomy History of permanent cardiac pacemaker placement with subsequent repositioning Family History Son Alcohol use disorder Social History Smoking/Tobacco Use Status: Former Tobacco Use tobacco type: smokeless tobacco Smoking risk assessment performed?: Yes Alcohol Intake: current Alcohol Intake frequency: 0-2 drinks per day Alcohol type: beer Drug use: Never Substance use type: does not use Housing: fpc Pets and animals: No Do you feel safe at home: Yes Do you feel safe in your relationship?: Yes Additional Social history: 2 sons cirrhosis/EtOH, has been in [facility] Time Spent with Patient Time Spent with Patient: 70-84 minutes4 Time was spent: preparing to see the patient(eg.review tests), obtaining and/or reviewing separately otained hiistory, ordering medications,tests, procedures, referring, communicating with other health home care music therapist, indepentently interpreting results, counseling the patient and care coordination
--- NOTE | 2023-12-18 10:28 | OT.INIE ---
Occupational Therapy Notes Inpatient Occupational Therapy Evaluation Date: 12/18/23 Referring Doctor: Liliya Spicer NP OT Orders: Non Urgent Precautions: Fall, Standard, DNR/DNI PATIENT PROFILE/ADMITTING DIAGNOSIS: Pt is a 73 year old male who was admitted to [facility] for the following dx of CVA, (R) sided weakness, dementia, CHF. Past Medical History: All Active Problems (Updated 12/15/23 @ 16:30 by Tim Payton) Acute right-sided weakness (Acute) Dementia (Chronic) Hyponatremia (Chronic) CHF (congestive heart failure) (Chronic) Chronic hyponatremia (Acute) Shortness of breath (Acute) Nail dystrophy (Acute) Restrictive lung disease (Acute) Asthma (Chronic) Shortness of breath (Acute) Sebaceous cyst (Acute) Nasal obstruction (Acute) External nasal lesion (Acute) Hypertension (Chronic) Left lower lobe pneumonia (Acute) Bloating (Acute) Heme positive stool (Acute) Infected sebaceous cyst of skin (Acute) Trapped lung (Acute) Sacroiliitis (Acute) Depression (Chronic) Lymphedema (Acute) HTN (hypertension) with goal to be determined (Chronic) Obesity (Chronic) DNR (do not resuscitate) (Acute) Presence of cardiac pacemaker (Chronic) [employer] Essentio PPM MRI model L111 Serial # [id number] placed dual chamber 04/30/2017 for CHB at [facility]. 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 Most likely this is inflammatory tissue and not actually fluid. pt has had multiple taps. He was on a prolonged course of IV abx and has failed to resolve. This is a sequelae of this pericardial tamponade following disruption of his RA lead from pacemaker insertion. CHB (complete heart block) had permanent pacemaker implanted 2017 for thisHyponatremia, hypo-osmolarity, or hypo-osmolar hyponatremia Surgical History S/P laparoscopic cholecystectomy History of permanent cardiac pacemaker placement with subsequent repositioning Social History/Home Situation: Pt notes that he lives at the [facility]. He states that he did not need help at his baseline level of function and that he was able to perform his day to day routines (I). OT asks pts about services and he states that he never needed them. He is a poor historian on baseline levels. I do not feel that pt has achieved his baseline level of function at this time. Equipment owned/DME: Met by SNF SUBJECTIVE: Pt was sitting in bed when OT arrived. He reports that he is returning to the [facility] today and states that he doesn't want to do anything before he leaves. OBJECTIVE: General Observation: IV in (R) UE, not receptive to performance of ADLs with behavioral changes when he doesn't want to do something Mental Status: A&Ox3 Pain: Pt notes that he is in pain ROM: RUE Limited to 90* shoulder flexion, pain with passive ROM of elbow and wrist L UE AROM WFL STRENGTH: RUE 3//5 throughout LUE 4/5 FUNCTIONAL MOBILITY/ADLS: BATHING Pt declines he notes that he is not interested in participating. BAsed on his ROM I do think he could use his (L) UE for some tasks but will require (A) with this. DRESSING sitting in bed Dressing UE Mod (A) with dressing Dressing LE max (A) pt refuses to perform GROOMING Able to use his (L) UE for this, (R) UE can reach face/head with decreased motor control. TOILETING NT pt states that he can't walk so he does not go to the bathroom. EATING Sitting in bed pt is able to hold a handled cup in his (R) UE but otherwise he has decline in motor control and not able to bring hand to mouth with (R) UE. He is able to use his (L) but is limited d/t him being (R) hand dominant. BALANCE: Static sitting Good Dynamic Sitting Good SPECIAL TESTS: Daily Activity Limitations Standardized Measure [facility] AM -PAC ?6 clicks? Daily Activity Inpatient Short Form: Raw score: 11 Standardized score: 29.04 CMS score: 70.42% INFORMED CONSENT/EDUCATION: Pt instructed in purpose of OT Consult and plan of care. ASSESSMENT: Patient is a 73-year-old male referred to occupational therapy services with diagnosis of CVA, (R) sided weakness, dementia, CHF. Patient presents with clinical signs and symptoms consistent with dx, as demonstrated by the following impairment level findings/functional limitations: Impairments in ADL/IADL and leisure activities, decrease gross and fine motor control, decreased (R) UE strength, decreased (R) LE strength, Decreased functional activity tolerance required for ADL performance, decreased performance of ADLs, behavioral neglect of (R) UE. AMPAC score 11 Patient is assessed as a Moderate 71692 complexity based on the following: History: see above Examination: see functional limitations as noted above Presentation: Evolving Decision Making: AMPAC score 11 GOALS N/A seen for OT consult only. PLAN OF CARE/TREATMENT PLAN: Discharge from skilled OT services. Plan is for pt to return to the [facility] this afternoon. DISCHARGE RECOMMENDATIONS Return to the [facility] TREATMENT TIME/MINUTES/CODES [id number], 31 minutes Lizbeth Lemus OTR/[facility] [place], [place]
[2023-12-18] MEDS: guaiFENesin/D-METHORPHAN HB 5 ML CUP 10 ML PO (11:43)
[2023-12-18] MEDS: Benzonatate 100 MG CAP PO (11:44)
[2023-12-18 11:49] VITALS: BP 101/68; PULSE 62; RESP 18; TEMP 36.3; O2SAT 93
--- NOTE | 2023-12-18 11:58 | PDOC.CMDIS ---
Date of service: 12/18/23 Time of Service: 11:58 LACE Index Scoring Tool Questions: Length of Stay (in days): 3 Was the patient admitted via the E.D.?: Yes Comorbidities: Cerebrovascular Disease, Congestive Heart Failure and Dementia E.D. Visits: 3 Answers: Total Score: 14 Risk of Readmission: High Risk Care Management Discharge Plan Reason for Hospitalization: CVA, pneumonia Discharge Plan: Discharge back to the [facility]. Follow up with facility/community providers and discharge plan of care as instructed. Patient/Family Education Needs: Review discharge instructions, limitations, medications and plan for healthcare follow up in the community. Discuss ask me three. Services Needed at Discharge: [facility] Facility (LTC resident at the [facility]) and Transportation [facility] Health Related Social Needs: No Data to Display
[2023-12-18] MEDS: cefTRIAXone 2 GM/50 ML BAG IVPB (12:03)
[2023-12-18] MEDS: Magnesium Oxide 400 MG TAB PO (12:05)
[2023-12-18] MEDS: Potassium Chloride 20 MEQ TABCR 40 MEQ PO (12:06)
--- NOTE | 2023-12-18 12:16 | NT_ITS ---
PT Notes Visit Reasons: Right Sided Weakness Tim was approached for Skilled PT session this morning. He refused to participate stating he was returning to [facility] today. He stated he was going to wait to see Ester and Zoltan the therapists at [facility] to get out of bed. Pt education provided on benefits of skilled PT and attempting to sit at the edge of the bed so the Therapists at [facility] would know how he is doing. He continued to decline. Will reapproach in the afternoon if pt remains in facility.
[2023-12-18] MEDS: DOXYCYCLINE 100 MG in Normal Saline 100 ML IVPB (12:45)
--- NOTE | 2023-12-18 13:24 | NUR.NOTE ---
Nursing Note:RN attempted to call the [facility] x4, spoke with various staff members there to be transfered to A wing to give report. A wing staff have not picked up the call transfer for RN to give report at this time.
--- NOTE | 2023-12-18 13:54 | W.PC.ACHO ---
Registration Status: Primary Language: Preferred Language: ED Information & Data Chief Complaint CVA/TIA 12/15/23 11:11 Triage Note pt BIBA from [facility] for right 12/15/23 10:48 sided weakness after fall out of bed, unsure of LKW, able to minimally move right arm on arrival, good sensation to right side, can 't move toes, hx of dementia , dtr aware of arrival and has called, IV to left hand by EMS, IV to RAC by u/s in CT. Medical / Surgical History (Last Reviewed 12/15/23 @ 16:59 by Jack Gutierrez MD) Pneumonia CHB (complete heart block) Recurrent left pleural effusion History of empyema of pleura Hyponatremia, hypo-osmolarity, or hypo-osmolar hyponatremia (Last Reviewed 12/15/23 @ 16:59 by Jack Gutierrez MD) S/P laparoscopic cholecystectomy History of permanent cardiac pacemaker placement Most Recent Vital Signs Temperature 36.3 C L 12/18/23 11:49 Temperature Source Temporal Artery Scan 12/18/23 11:49 Pulse 62 12/18/23 11:49 Pulse Rhythm Regular 12/15/23 14:22 Pulse 60 12/15/23 13:50 Respiratory Rate 18 12/18/23 11:49 Respiratory Effort Normal 12/15/23 14:22 Respiratory Depth Normal 12/15/23 14:22 Respiratory Pattern Normal 12/15/23 14:22 Blood Pressure 101/68 12/18/23 11:49 Blood Pressure Mean 90 12/15/23 11:31 Blood Pressure Position Supine 12/15/23 10:48 Pulse Oximetry 93 12/18/23 11:49 Oxygen Delivery Method Room Air 12/18/23 11:49 Oxygen Flow Rate 0 12/18/23 11:49 Pain Level 0 12/18/23 08:43 Comment RT in room at this time 12/16/23 11:09 Allergies No Known Allergies Allergy (Verified 08/16/23 19:43) Precautions Isolation Standard precaution 12/15/23 10:59 Active Medications Generic Name Dose Route Start Last Admin Trade Name Freq PRN Reason Stop Dose Admin Acetaminophen 1,000 mg 12/15/23 20:00 12/18/23 08:50 Acetaminophen 500 Mg Tab PO 1,000 mg Q12H ROGELIO Administration Albuterol Sulfate 2 puff 12/15/23 20:00 12/18/23 13:32 Albuterol Hfa 8 Gm 60 Puff Inh IH 2 puffs TID ROGELIO Administration Albuterol/Ipratropium 3 ml 12/15/23 15:44 12/16/23 06:01 Albuterol/Ipratropium 3 Ml Upd Vial IH 3 ml Q12H PRN PRN Administration Aspirin 81 mg 12/16/23 08:30 12/18/23 08:51 Aspirin 81 Mg Chew PO 81 mg DAILY ROGELIO Administration Atorvastatin Calcium 80 mg 12/16/23 08:30 12/18/23 08:50 Atorvastatin 40 Mg Tab PO 80 mg DAILY ROGELIO Administration Benzonatate 100 mg 12/15/23 15:44 12/18/23 11:44 Benzonatate 100 Mg Cap PO 100 mg BID PRN PRN Administration Cough Budesonide/Formoterol Fumarate 2 puff 12/15/23 20:00 12/18/23 08:38 Budesonide/Formoterol 160/4.5 6 Gm 60 Puff Inh IH 2 puffs BID ROGELIO Administration Clopidogrel Bisulfate 75 mg 12/17/23 08:30 12/18/23 08:50 Clopidogrel 75 Mg Tab PO 01/06/24 08:31 75 mg DAILY ROGELIO Administration Colestipol HCl 2 gm 12/15/23 20:00 12/18/23 08:49 Colestipol 1 Gm Tab PO 2 gm BID ROGELIO Administration Enoxaparin Sodium 40 mg 12/15/23 18:00 12/17/23 17:08 Enoxaparin 40 Mg/0.4 Ml Syr SC 40 mg Q24H ROGELIO Administration Fentanyl 12 mcg 12/15/23 18:00 12/15/23 17:39 Fentanyl 12 Mcg Patch TD 12 mcg Q72H ROGELIO Administration Fluticasone Propionate 0 gm 12/15/23 20:00 12/18/23 08:52 Fluticasone Nasal [place] 16 Gm Btl NS 1 spray BID ROGELIO Administration Furosemide 20 mg 12/15/23 17:00 12/18/23 08:50 Furosemide 20 Mg Tab PO 20 mg BID DIURETIC ROGELIO Administration Guaifenesin 600 mg 12/17/23 20:00 12/18/23 08:51 Guaifenesin 600 Mg Tabcr PO 600 mg BID ROGELIO Administration Guaifenesin/Dextromethorphan 10 ml 12/15/23 16:13 12/18/23 11:43 Guaifenesin/D-Methorphan Hb 5 Ml Cup PO 10 ml Q4H PRN PRN Administration Ceftriaxone Sodium/Dextrose 2 gm in 50 mls @ 100 mls/hr 12/17/23 12:00 12/18/23 12:54 Rocephin IVPB Infused Q24H ROGELIO Infusion Doxycycline Hyclate 100 mg/ 100 mls @ 100 mls/hr 12/17/23 12:00 12/18/23 12:45 Sodium Chloride IVPB 100 mls/hr Q12H ROGELIO Administration Ibuprofen 200 mg 12/15/23 15:44 12/16/23 05:58 Ibuprofen 200 Mg Tab PO 200 mg BID PRN PRN Administration Loratadine 10 mg 12/16/23 08:30 12/18/23 08:51 Loratidine 10 Mg Tab PO 10 mg DAILY ROGELIO Administration Magnesium Gluconate 500 mg 12/15/23 20:00 12/18/23 08:51 Magnesium Gluconate 500 Mg Tab PO 500 mg BID ROGELIO Administration Melatonin 3 mg 12/15/23 20:00 12/17/23 20:16 Melatonin 3 Mg Tab PO 3 mg HS ROGELIO Administration Memantine 5 mg 12/15/23 20:00 12/18/23 08:50 Memantine 5 Mg Tab PO 5 mg BID ROGELIO Administration Metoprolol Succinate 200 mg 12/16/23 08:30 12/18/23 08:50 Metoprolol Cr 100 Mg Tabcr PO 200 mg DAILY ROGELIO Administration Pantoprazole Sodium 40 mg 12/16/23 07:30 12/18/23 08:50 Pantoprazole 40 Mg Tabcr PO 40 mg DAILY@0730 ROGELIO Administration Patient's Own 1 each 12/15/23 17:00 12/18/23 08:53 Medication (Zenpep PO Not Given [id number] QMEALS ROGELIO Unit Capsule) Patient's Own 1 each 12/16/23 08:30 12/18/23 08:52 Medication (Sodium PO Not Given Chloride 1000 Mg Tab DAILY ROGELIO ) Potassium Chloride 20 meq 12/17/23 17:00 12/18/23 12:06 Potassium Chloride 20 Meq Tabcr PO 12/19/23 12:01 20 meq QMEALS ROGELIO Administration Senna/Docusate Sodium 2 tab 12/16/23 08:30 12/18/23 08:49 Sennosides/Docusate Sodium Tab PO 2 tab DAILY ROGELIO Administration Sertraline HCl 50 mg 12/16/23 08:30 12/18/23 08:51 Sertraline 50 Mg Tab PO 50 mg DAILY ROGELIO Administration Sodium Chloride 0 ml 12/15/23 20:00 12/18/23 08:51 Normal Saline Flush 10 Ml Syr IVP 10 ml BID ROGELIO Administration Spironolactone 50 mg 12/16/23 08:30 12/18/23 08:51 Spironolactone 25 Mg Tab PO 50 mg DAILY ROGELIO Administration Tiotropium [place] 2 puff 12/16/23 08:30 12/18/23 08:39 Tiotropium [place]-Respimat 10 Puff Inh IH 2 puff DAILY ROGELIO Administration Vitamin B Complex/Vitamin C 1 tab 12/16/23 08:30 12/18/23 08:51 Vitamins B Comp W/C Tab PO 1 tab DAILY ROGELIO Administration IV IV Catheter Type [Right Saline Lock Forearm] IV Catheter Type [Left Hand] Peripheral IV IV Catheter Type [Antecubital] Saline Lock IV Catheter Gauge [Right 22 Forearm] IV Catheter Gauge [Left Hand] 20 IV Catheter Gauge [Antecubital 18 ] Diagnostics 12/18/23 12/17/23 12/17/23 Range/Units 06:04 Unknown 06:05 WBC 16.82 H (4.4-10.8) 10^3/uL RBC 3.63 L (4.36-5.78) 10^6/uL Hgb 12.2 L (13.5-17.5) g/dL Hct 36.5 L (40.0-50.0) % MCV 101 H (80-95) fL MCH 33.6 H (27.0-33.0) pg MCHC 33.4 (32.0-36.0) % RDW 12.6 (11.8-14.1) % Plt Count 193 (130-400) 10^3/uL MPV 12.0 H (8.0-11.0) fL Immature Gran % 0.5 % Neutrophils % 79.8 % Lymphocytes % 10.2 % Monocytes % 8.9 % Eosinophils % 0.4 % Basophils % 0.2 % Nucleated RBC % 0.0 (0.0-0.3) % Absolute Neutrophils 13.42 H (1.2-6.7) 10^3/uL Absolute Lymphocytes 1.72 (1.2-3.4) 10^3/uL Absolute Monocytes 1.50 H (0.1-0.8) 10^3/uL Absolute Eosinophils 0.07 (0.0-0.7) 10^3/uL Absolute Basophils 0.03 (0.0-0.2) 10^3/uL Sodium 139 (136-145) mmol/L Potassium 3.1 L (3.5-5.1) mmol/L Chloride 101 (98-107) mmol/L Carbon Dioxide 28.3 (21.0-32.0) mmol/L Anion Gap 9.7 (3-11) mmol/L BUN 16 (7-18) mg/dL Creatinine 0.6 L (0.70-1.30) mg/dL Est GFR (CKD-EPI 2020) 101.93 (mL/min/1.73m2) Glucose 98 (74-106) mg/dL Calcium 8.7 (8.5-10.1) mg/dL Magnesium 1.7 L 2.0 (1.8-2.4) mg/dL Add-On Test Request DONE Intake and Output - 24 Hour Total 12/15/23 10:14 thru 12/18/23 13:13 Intake Total 790 Output Total 325 Balance 465 Weight 240 kg Intake: IV 340 Oral 450 Output: Urine 325 Other: Urine Color Yellow Urine Appearance Clear Urine Odor Normal Comment changed brief Stool Size Moderate Stool Characteristics Liquid Voiding Methods Diaper Incontinent # Voids 1 Falls Risk Assessment History of Falls Admit Due to Fall 12/15/23 14:22 Contributing Factors Impairments 12/15/23 14:22 Ambulatory Aids Uses ambulatory device + 12/15/23 14:22 Tubes/Lines With any additional score 12/15/23 14:22 Gait Evaluation W/any additional score 12/15/23 14:22 Cognition No cognitive impairment 12/15/23 14:22 Fall Total Score 98 12/15/23 14:22 Level of Risk Maximum Risk 12/15/23 14:22 Problems (Last Reviewed 12/15/23 @ 16:59 by Jack Gutierrez MD) DVT prophylaxis (Acute) CVA (cerebral vascular accident) (Acute) Leukocytosis (Acute) Acute right-sided weakness (Acute) Acute right-sided weakness (Acute) Dementia (Chronic) CHF (congestive heart failure) (Chronic) Chronic hyponatremia (Acute) Asthma (Chronic) Depression (Chronic) Notes 12/18/23 13:24 Nursing Notes by Nolan Farrell Nursing Note:RN attempted to call the [facility] x4, spoke with various staff members there to be transfered to A wing to give report. A wing staff have not picked up the call transfer for RN to give report at this time. Initialized on 12/18/23 13:24 - END OF NOTE v v v v v v v v v Sending and/or Receiving Nurses: Please use comment section below to note any information pertinent to the patient hand-off not included above. Information / Comments: Report received from: report given to Mini Aldridge at the [facility] at [phone]
== END 2023-12-18 14:06 | disposition skilled nursing facility (03) | DRG 64 ==
LOC: ER 12:58 → MS 17:06
PROVIDERS: Nurse Practitioner Acute Care; Admitting Provider Family Medicine; Emergency Provider Emergency Medicine; PCP Legal Medicine; Visit Provider Family Medicine
DX: J18.9 Pneumonia, unspecified organism (principal); E87.1 Hypo-osmolality and hyponatremia; I50.32 Chronic diastolic (congestive) heart failure; F01.B3 Vascular dementia, moderate, with mood disturbance; G81.91 Hemiplegia, unspecified affecting right dominant side; I63.89 Other cerebral infarction; I44.2 Atrioventricular block, complete; J98.19 Other pulmonary collapse; Z68.45 Body mass index [BMI] 70 or greater, adult; R53.1 Weakness; J45.50 Severe persistent asthma, uncomplicated; Z95.0 Presence of cardiac pacemaker; I11.0 Hypertensive heart disease with heart failure; I25.10 Atherosclerotic heart disease of native coronary artery without angina pectoris; F32.A Depression, unspecified; G89.29 Other chronic pain; Z79.891 Long term (current) use of opiate analgesic; W01.0XXA Fall on same level from slipping, tripping and stumbling without subsequent striking against object, initial encounter; E66.9 Obesity, unspecified; Z66 Do not resuscitate; E87.6 Hypokalemia; E83.42 Hypomagnesemia
CPT/HCPCS: 00123; 36415; 70496; 70498; 73521; 73562; 80048; 80053; 80061; 93005; 94640; 96365; 96367; 96372; 96376; 97110; 97163; 97166; 97530; 99285; J1650; 70450; 71045; 73030; 81003; 83036; 83735; 84484; 85025; 86140; 93010; 94664; 94667; 99222; 99232; 99233; 99239; J0696; J3490; J7620

== ENCOUNTER 2023-12-18 12:47 | Outpatient (CLI) | payer MEDICARE, MEDICAID, SELFPAY | END 2023-12-18 12:48 | disposition home or self-care (01) | LOC: CARDOPNVT 12:47 | PROVIDERS: PCP Legal Medicine; Visit Provider Legal Medicine | DX: R00.2 Palpitations (principal) | CPT/HCPCS: 93270 ==

== ENCOUNTER 2023-12-22 18:11 | Outpatient (REF) | payer MEDICARE, MEDICAID, SELFPAY ==
--- OUTSIDE RECORDS SUMMARY | 2023-12-22 18:12 | XMS_ITS | Encounter Summary ---
Author Organization [facility] Address [address] [place] [address] Care Team Providers Care Shipper/Receiver Name Role Phone Katia Stone PA-C Primary Care Provider +1- [phone] Encounter Details Date Type Department Care Team (Late st Contact Info) Description 09/26/2020 Results Only [facility] [phone] Rowan Abad, TAIWO [address] [place] [phone] Social History Tobacco Use Types Packs/Day [...] 1.8 - 2.4 mg/dl 09/26/2020 15:12 EDT [facility] 09/26/2020 14:3 3 EDT 09/26/2020 14:54 EDT Rowan Abad NP CHEMISTRY & BLOOD GA S ORDERABLES [facility] [address] [place] [address] * (ABNORMAL) BASIC METABOLIC PANEL (BMP) (09/26/2020 14:33 EDT) Sodium 131(L) 136 - 145 mEq/L 09/26/2020 15:12 EDT [facility] Potassium 4.2 3.5 - 5.1 mEq/L 09/26/2020 15:12 [facility] Chloride 96 96 - 107 mEq/L 09/26/2020 15:12 EDT [facility] CO2 Total 30.9 21 - 32 mEq/L 09/26/2020 15:12 T [facility] Anion Gap 3.1 mEq/L 09/26/2020 15:12 [facility] BUN 10 7 - 25 mg/dl 09/26/2020 15:12 [facility] Creatinine 0.82 0.70 - 1.30 mg/dl 09/26/2020 15:12 [facility] Estimated GFR >60 >60 09/26/2020 15:12 [facility] Comment: EGFR UNITS: mL/min/1.73 m 2 CKD-EPI Equation used to calculate. Glucose 111(H) 74 - 106 mg/dl 09/26/2020 15:12 [facility] Calcium 8.6 8.5 - 10.1 mg/dl 09/26/2020 15:12 [facility] 09/26/2020 14:3 3 EDT 09/26/2020 14:54 EDT Rowan Abad NP CHEMISTRY & BLOOD GA S ORDERABLES Performing Organization Address City/State/[facility] Co de Phone Number [facility] [address] [place] [address] * (ABNORMAL) COMPLETE BLOOD COUNT AND DIFFERENTIAL (09/26/2020 14:33 EDT) WBC 7.3 4.0 - 10.5 10 3/uL 09/26/2020 15:08 [facility] RBC 3.30(L) 4.70 - 6.00 10 6/uL 09/26/2020 15:08 [facility] Hemoglobin 11.2(L) 13.5 - 18.0 g/dL 09/26/2020 15:08 [facility] HCT 32.0(L) 42.0 - 52.0 % 09/26/2020 15:08 [facility] MCV 97.0 78 - 100 fL 09/26/2020 15:08 [facility] MCH 33.9(H) 27 - 31 pg 09/26/2020 15:08 [facility] MCHC 35.0 32 - 37 g/dL 09/26/2020 15:08 [facility] RDW-CV - PMC 11.7 <14.7 % 09/26/2020 15:08 [facility] PLATELET COUNT - PMC 291 150 - 450 10 3/uL 09/26/2020 15:08 [facility] MPV 11.0 9.2 - 12.0 fL 09/26/2020 15:08 [facility] NEUTROPHILS % (AUTO) - PMC 59.3 % 09/26/2020 15:08 [facility] LYMPHOCYTES % (AUTO) - PMC 23.9 % 09/26/2020 15:08 [facility] MONOCYTES % (AUTO) - PMC 12.3 % 09/26/2020 15:08 [facility] EOSINOPHILS % (AUTO) - PMC 2.9 NOT ESTABLISHED % 09/26/2020 15:08 [facility] BASOPHILS % (AUTO) - PMC 1.0 % 09/26/2020 15:08 [facility] Immature Granulocyte % (Auto) 0.6 % 09/26/2020 15:08 [facility] NUCLEATED RBC % (AUTO) - PMC 0.0 % 09/26/2020 15:08 [facility] NEUTROPHILS # (AUTO) - PMC 4.3 1.5 - 6.6 10 3/uL 09/26/2020 15:08 [facility] LYMPHOCYTES # (AUTO) - PMC 1.7 1.0 - 3.5 10 3/uL 09/26/2020 15:08 [facility] MONOCYTES # (AUTO) - PMC 0.9 <1.0 10 3/uL 09/26/2020 15:08 [facility] EOSINOPHILS # (AUTO) - PMC 0.2 <0.7 10 3/uL 09/26/2020 15:08 [facility] BASOPHILS # (AUTO) - PMC 0.1 <0.1 10 3/uL 09/26/2020 15:08 [facility] Absolute Immature Granulocyte 0.04 <0.06 10 3/uL 09/26/2020 15:08 [facility] DIFFERENTIAL METHOD Auto Differential 09/26/2020 14:56 [facility] 09/26/2020 14:3 3 EDT 09/26/2020 14:54 EDT Rowan Abad TAG AND LABEL CUTTER PACKAGES & DNA PROBE ORDERABLES [facility] [address] [place] [address] documented in this encounter Visit Diagnoses Not on filedocumented in this encounter Care Teams Shipper/Receiver Relationship Specialty Start Date End Date Katia Stone, BELLAC [address] [place] [phone] PCP - General 05/02/17 documented as of this encounter
--- OUTSIDE RECORDS SUMMARY | 2023-12-22 18:12 | XMS_ITS | Referral Summary ---
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 Hypertensive urgency 05/01/2017 Heart block AV third degree ([facility]) 04/30/2017 Resolved Problems Problem Noted Date Diagnosed Date Resolved Date Acute on chronic diastolic c ongestive heart failure ([facility]) 05/01/2017 05/27/2017 Social History Tobacco [...] on file Medical Devices Implanted Type Area Vascular Ultrasound Technician Device Identifier Shelf Expiration Date Model / Serial / Lot 7742 Worldsity Mri - [id number] Implanted:05/02 (Quantity not on file) Lead [employer] 7742 INGEVITY MRI / [id number] / Description:Implant record l oaded by IMP Chronicles import. 3830 Selectsecure Mri Surescan - [id number] Implanted:05/21 (Quantity not on file) Lead Medtronic 3830 SELECTSECURE MRI SURESCAN / [id number] / Description:Implant record l oaded by IMP Chronicles import. L111 Essentio Mri - [id number] Implanted:05/02 (Quantity not on file) Pacemaker [employer] L111 ESSENTIO MRI / [id number] / Description:Implant record l oaded by IMP Chronicles import. Advance Directives For more information, please contact: [phone] * Full Code (Latest Code Status on [...] the discussion? Not Discusse d Care Teams Herpetology Teacher Relationship Specialty Start Date End Date Katia Stone PA-C [address] [place] [phone] [facility] - General 05/02/17
--- OUTSIDE RECORDS SUMMARY | 2023-12-22 18:12 | XMS_ITS | Encounter Summary ---
Author Organization [facility] Address [address] [place] [address] Care Team Providers Care Autism Motor Specialist Name Role Phone Katia Stone PA-C Primary Care Provider +1- [phone] Encounter Details Date Type Department Care Team (Late st Contact Info) Description 08/25/2020 Results Only [facility] [phone] Rowan Abad, TAIWO [address] [place] [phone] Social History Tobacco Use Types Packs/Day [...] Diagnosis Comments ORGANISM ID FROM PLATE - [facility] Routine 08/25/2020 14:15 EDT HSV (HERPES SIMPLEX VIRUS) MOLECULAR DETECTION, PCR Routine 08/25/2020 14:15 EDT CREATININE WITH GFR - PMC Routine 08/25/2020 6:09 EDT PLATELET COUNT Routine 08/25/2020 6:09 EDT documented in this encounter Results * (ABNORMAL) ORGANISM ID FROM PLATE - PMC (08/25/2020 14:15 EDT) GRAM SMEAR - PMC SEE NOTES(A) 08/27/2020 17:20 EDT [facility] Comment: RESULT: Few Neutrophils Present No bacteria seen SWATI RESULTS/ORGANISM ID - [facility] Few Usual skin jesi 08/27/2020 17:20 EDT [facility] Comment: Spec Description ?? Additional Information:: LEFT ARM Source:ARM Test [place] [id number] 08/25/2020 14:1 5 EDT 08/25/2020 14:34 EDT Narrative [facility] - 08/27/2020 17:20 EDT ARM LEFT ARM Rowan Abad NP MICROBIOLOGY - GENER AL ORDERABLES [facility] [address] [place] [address] * HERPES SIMPLEX VIRUS MOLECULAR DETECTION, PCR (08/25/2020 14:15 EDT) HERPES SIMPLEX VIRUS I DNA - PMC Negative Negative 08/26/2020 17:21 EDT [facility] HERPES SIMPLEX VIRUS 2 DNA - PMC Negative Negative 08/26/2020 19:39 EDT [facility] Comment: SOURCE:: ARM Spec Description ?? Additional Information:: LEFT ARM Source:LEFT ARM Test performed [place] [id number] 08/25/2020 14:1 5 EDT 08/25/2020 14:35 EDT [facility] - 08/26/2020 19:39 EDT ARM LEFT ARM Rowan Abad NP MICROBIOLOGY - GENER AL ORDERABLES Performing Organization Address [facility] Co de Phone Number [facility] [address] [place] [phone] * (ABNORMAL) CREATININE WITH GFR - PMC (08/25/2020 6:09 EDT) Pathologist [facility] Creatinine 0.60(L) 0.70 - 1.30 mg/dl 08/25/2020 7:10 EDT [facility] Estimated GFR >60 >60 08/25/2020 7:10 EDT [facility] Comment: EGFR UNITS: mL/min/1.73 m 2 CKD-EPI Equation used to calculate. 08/25/2020 6:09 EDT 08/25/2020 6:44 EDT Rowan Abad NP CHEMISTRY & BLOOD GA S ORDERABLES Performing Organization Address City/[facility]/ZIP Co de Phone Number [facility] [address] [place] [phone] * PLATELET COUNT (08/25/2020 6:09 EDT) [facility] PLATELET COUNT - [facility] 326 150 - 450 10 3/uL 08/25/2020 7:02 EDT [facility] 08/25/2020 6:09 EDT 08/25/2020 6:44 EDT [facility] - 08/25/2020 7:06 EDT Comment ENOXAPARIN MONITORING Rowan Abad DATA PROCESSING CONTROL CLERK HEMATOLOGY & PF4 ORD ERABLES [facility] [address] [place] [address] documented in this encounter Visit Diagnoses Not on filedocumented in this encounter Care Teams Autism Motor Specialist Relationship Specialty Start Date End Date Katia Stone, MINGO [address] [facility] [place] [place] [phone] PCP - General 05/02/17 documented as of this encounter
--- OUTSIDE RECORDS SUMMARY | 2023-12-22 18:12 | XMS_ITS | Encounter Summary ---
Author Organization [facility] Address [address] [place] [address] Care Team Providers Care Cable Way Operator Name Role Phone Katia Stone PA-C Primary Care Provider +1- [phone] Encounter Details Date Type Department Care Team (Late st Contact Info) Description 08/25/2020 Lab Requisition [facility] Pathology & Laboratory Medicine - [address] [address] Outr Resulting Lab, Provider Social History Tobacco [...] 1, PCR Negative Negative 08/26/2020 17:16 EDT [facility] Herpes Simplex Virus Molecular Detection 2, PCR Negative Negative 08/26/2020 17:16 EDT [facility] Swab ENTIRE UPPER LIMB / Unknown 08/25/2020 14:15 EDT 08/25/2020 21:20 EDT Provider Outr Resulting Lab MICROBIOLOGY - GENERAL ORDERABLES Performing Organization Address City/State/[facility] Co de Phone Number [facility] [address] [place] [address] documented in this encounter Visit Diagnoses Not on filedocumented in this encounter Additional Health Concerns Infection Onset Date Last Indicated Resolved Time RSV 01/31/2022 01/31/2022 02/10/2022 22:1 5 EST documented as of this encounter Care Teams Cable Way Operator Relationship Specialty Start Date End Date Katia Stone PA-C [address] [place] [phone] PCP - General 05/02/17 documented as of this encounter
--- OUTSIDE RECORDS SUMMARY | 2023-12-22 18:12 | XMS_ITS | Encounter Summary ---
Author Organization [facility] Address [address] [place] [address] Care Team Providers Care Machine Paint Mixer Name Role Phone Katia Stone PA-C Primary Care Provider +1- [phone] Encounter Details Date Type Department Care Team (Late st Contact Info) Description 09/02/2020 Results Only [facility] [phone] Rowan Abad, TAIWO [address] [place] [phone] Social History Tobacco Use Types Packs/Day [...] 0.70 - 1.30 mg/dl 09/02/2020 7:12 EDT [facility] Estimated GFR >60 >60 09/02/2020 7:12 EDT [facility] Comment: EGFR UNITS: mL/min/1.73 m 2 CKD-EPI Equation used to calculate. 09/02/2020 6:18 EDT 09/02/2020 6:44 EDT Rowan Abad NP CHEMISTRY & BLOOD GA S ORDERABLES Performing Organization Address City/[facility]/ZIP Co de Phone Number [facility] [address] [place] [address] * PLATELET COUNT (09/02/2020 6:18 EDT) [facility]ATELET COUNT - [facility] 247 150 - 450 10 3/uL 09/02/2020 6:57 EDT [facility] 09/02/2020 6:18 EDT 09/02/2020 6:44 EDT Narrative [facility] - 09/02/2020 7:06 EDT Comment ENOXAPARIN MONITORING Rowan Abad NP HEMATOLOGY & PF4 ORD ERABLES [facility] [address] [place] [address] documented in this encounter Visit Diagnoses Not on filedocumented in this encounter Care Teams Machine Paint Mixer Relationship Specialty Start Date End Date Katia Stone, MINGO [address] [place] [phone] PCP - General 05/02/17 documented as of this encounter
--- OUTSIDE RECORDS SUMMARY | 2023-12-22 18:12 | XMS_ITS | Encounter Summary ---
Author Organization [facility] Address [address] [place] [address] Care Team Providers Care Cardiology Clinical Nurse Specialist Name Role Phone Katia Stone PA-C Primary Care Provider +1- [phone] Encounter Details Date Type Department Care Team (Late st Contact Info) Description 06/23/2021 Lab Requisition [facility] Pathology & Laboratory Medicine - [address] [id number] Outr Resulting Lab, Provider Social History Tobacco [...] Urine 509 150-1,150 mOsm/kg 06/23/2021 21:58 EDT [facility] Urine URINE SPECIMEN COLLECTION, CLEAN CATCH / Unknown 06/23/2021 4:00 EDT 06/23/2021 21:40 EDT Provider Outr Resulting Lab URINALYSIS O RDERABLES [facility] [address] [place] [address] documented in this encounter Visit Diagnoses Not on filedocumented in this encounter Additional Health Concerns Infection Onset Date Last Indicated Resolved Time RSV 01/31/2022 01/31/2022 02/10/2022 22:1 5 EST documented as of this encounter Care Teams Cardiology Clinical Nurse Specialist Relationship Specialty Start Date End Date Katia Stone, BELLAC [address] [place] [phone] PCP - General 05/02/17 documented as of this encounter
--- OUTSIDE RECORDS SUMMARY | 2023-12-22 18:12 | XMS_ITS | Encounter Summary ---
Author Organization [facility] Address [address] [place] [address] Care Team Providers Care Business Machine Mechanic Name Role Phone Katia Stone PA-C Primary Care Provider +1- [phone] Encounter Details Date Type Department Care Team (Late st Contact Info) Description 09/05/2020 Results Only [facility] [place] [facility] [phone] Rowan Abad, TAIWO [address] [place] [phone] Social History Tobacco Use Types Packs/Day [...] 4.0 - 10.5 10 3/uL 09/05/2020 14:58 [facility] RBC 3.40(L) 4.70 - 6.00 10 6/uL 09/05/2020 14:58 [facility] Hemoglobin 11.6(L) 13.5 - 18.0 g/dL 09/05/2020 14:58 [facility] HCT 33.9(L) 42.0 - 52.0 % 09/05/2020 14:58 [facility] MCV 99.7 78 - 100 fL 09/05/2020 14:58 [facility] MCH 34.1(H) 27 - 31 pg 09/05/2020 14:58 [facility] MCHC 34.2 32 - 37 g/dL 09/05/2020 14:58 [facility] RDW-CV - PMC 13.1 <14.7 % 09/05/2020 14:58 [facility] PLATELET COUNT - PMC 253 150 - 450 10 3/uL 09/05/2020 14:58 [facility] MPV 10.9 9.2 - 12.0 fL 09/05/2020 14:58 [facility] NEUTROPHILS % (AUTO) - PMC 57.6 % 09/05/2020 14:58 [facility] LYMPHOCYTES % (AUTO) - PMC 25.0 % 09/05/2020 14:58 [facility] MONOCYTES % (AUTO) - PMC 13.3 % 09/05/2020 14:58 [facility] EOSINOPHILS % (AUTO) - PMC 2.7 NOT ESTABLISHED % 09/05/2020 14:58 [facility] BASOPHILS % (AUTO) - PMC 1.1 % 09/05/2020 14:58 [facility] Immature Granulocyte % (Auto) 0.3 % 09/05/2020 14:58 [facility] NUCLEATED RBC % (AUTO) - PMC 0.0 % 09/05/2020 14:58 [facility] NEUTROPHILS # (AUTO) - PMC 3.7 1.5 - 6.6 10 3/uL 09/05/2020 14:58 [facility] LYMPHOCYTES # (AUTO) - PMC 1.6 1.0 - 3.5 10 3/uL 09/05/2020 14:58 [facility] MONOCYTES # (AUTO) - PMC 0.9 <1.0 10 3/uL 09/05/2020 14:58 [facility] EOSINOPHILS # (AUTO) - PMC 0.2 <0.7 10 3/uL 09/05/2020 14:58 [facility] BASOPHILS # (AUTO) - PMC 0.1 <0.1 10 3/uL 09/05/2020 14:58 [facility] Absolute Immature Granulocyte 0.02 <0.06 10 3/uL 09/05/2020 14:58 [facility] DIFFERENTIAL METHOD Auto Differential 09/05/2020 14:36 [facility] 09/05/2020 14:3 0 EDT 09/05/2020 14:35 EDT Rowan Abad NP PACKAGES & DNA PROBE ORDERABLES [facility] [address] [place] [address] * MAGNESIUM (09/05/2020 14:30 EDT) Pathologist [facility] Magnesium 1.8 1.8 - 2.4 mg/dl 09/05/2020 14:57 [facility] 09/05/2020 14:3 0 EDT 09/05/2020 14:35 EDT Rowan Abad NP CHEMISTRY & BLOOD GA S ORDERABLES Performing Organization Address City/[facility] Co de Phone Number [facility] [address] [place] [address] * (ABNORMAL) BASIC METABOLIC PANEL (BMP) (09/05/2020 14:30 EDT) Pathologist [facility] Sodium 132(L) 136 - 145 mEq/L 09/05/2020 14:57 [facility] Potassium 4.3 3.5 - 5.1 mEq/L 09/05/2020 14:57 [facility] Chloride 99 96 - 107 mEq/L 09/05/2020 14:57 [facility] CO2 Total 26.5 21 - 32 mEq/L 09/05/2020 14:57 [facility] Anion Gap 6.5 mEq/L 09/05/2020 14:57 [facility] BUN 12 7 - 25 mg/dl 09/05/2020 14:57 [facility] Creatinine 0.60(L) 0.70 - 1.30 mg/dl 09/05/2020 14:57 [facility] Estimated GFR >60 >60 09/05/2020 14:57 [facility] Comment: EGFR UNITS: mL/min/1.73 m 2 CKD-EPI Equation used to calculate. Glucose 100 74 - 106 mg/dl 09/05/2020 14:57 [facility] Calcium 8.6 8.5 - 10.1 mg/dl 09/05/2020 14:57 [facility] 09/05/2020 14:3 0 EDT 09/05/2020 14:35 EDT Rowan Abad PHOTOCOMPOSING KEYBOARD OPERATOR CHEMISTRY & BLOOD GA S ORDERABLES [facility] [address] [place] [address] documented in this encounter Visit Diagnoses Not on filedocumented in this encounter Care Teams Business Machine Mechanic Relationship Specialty Start Date End Date Katia Stone, PABijalC [address] [place] [phone] PCP - General 05/02/17 documented as of this encounter
--- OUTSIDE RECORDS SUMMARY | 2023-12-22 18:12 | XMS_ITS | Encounter Summary ---
Author Organization [facility] Address [address] [place] [address] Care Team Providers Care Sausage Smoker Name Role Phone Katia Stone PA-C Primary Care Provider +1- [phone] Encounter Details Date Type Department Care Team (Late st Contact Info) Description 08/29/2020 Results Only [facility] [phone] Rowan Abad, TAIWO [address] [place] [phone] Social History Tobacco Use Types Packs/Day [...] 0.70 - 1.30 mg/dl 08/29/2020 5:41 EDT [facility] Estimated GFR >60 >60 08/29/2020 5:41 EDT [facility] Comment: EGFR UNITS: mL/min/1.73 m 2 CKD-EPI Equation used to calculate. 08/29/2020 5:05 EDT 08/29/2020 5:23 EDT Rowan Abad NP CHEMISTRY & BLOOD GA S ORDERABLES Performing Organization Address City/[facility]/ZIP Co de Phone Number [facility] [address] [place] [address] * PLATELET COUNT (08/29/2020 5:05 EDT) PLATELET COUNT - [facility] 324 150 - 450 10 3/uL 08/29/2020 5:39 EDT [facility] 08/29/2020 5:05 EDT 08/29/2020 5:23 EDT Narrative [facility] - 08/29/2020 5:41 EDT Comment ENOXAPARIN MONITORING Rowan Abad NP HEMATOLOGY & PF4 ORD ERABLES [facility] [address] [place] [address] documented in this encounter Visit Diagnoses Not on filedocumented in this encounter Care Teams Sausage Smoker Relationship Specialty Start Date End Date Katia Stone, MINGO [address] [place] [phone] PCP - General 05/02/17 documented as of this encounter
--- OUTSIDE RECORDS SUMMARY | 2023-12-22 18:12 | XMS_ITS | Encounter Summary ---
Author Organization [facility] Address [address] [place] [address] Care Team Providers Care Fashion Model Name Role Phone Katia Stone PA-C Primary Care Provider +1- [phone] Encounter Details Date Type Department Care Team (Late st Contact Info) Description 09/10/2020 Results Only [facility] [phone] Rowan Abad, TAIWO [address] [place] [phone] Social History Tobacco Use Types Packs/Day [...] COUNT (09/10/2020 5:40 EDT) Pathologist [facility] PLATELET COUNT - PMC 250 150 - 450 10 3/uL 09/10/2020 6:29 EDT [facility] 09/10/2020 5:40 EDT 09/10/2020 6:11 EDT Narrative [facility] - 09/10/2020 6:49 EDT Comment ENOXAPARIN MONITORING Rowan Abad NP HEMATOLOGY & PF4 ORD ERABLES Performing Organization Address City/State/[facility] Co de Phone Number [facility] [address] [place] [address] * (ABNORMAL) CREATININE WITH GFR - PMC (09/10/2020 5:40 EDT) Pathologist [facility] Creatinine 0.57(L) 0.70 - 1.30 mg/dl 09/10/2020 6:42 EDT [facility] Estimated GFR >60 >60 09/10/2020 6:42 EDT [facility] Comment: EGFR UNITS: mL/min/1.73 m 2 CKD-EPI Equation used to calculate. 09/10/2020 5:40 EDT 09/10/2020 6:11 EDT Rowan Abad NP CHEMISTRY & BLOOD GA S ORDERABLES [facility] [address] [place] [address] documented in this encounter Visit Diagnoses Not on filedocumented in this encounter Care Teams Fashion Model Relationship Specialty Start Date End Date Katia Stone, MINGO [address] [place] [phone] PCP - General 05/02/17 documented as of this encounter
--- OUTSIDE RECORDS SUMMARY | 2023-12-22 18:12 | XMS_ITS | Encounter Summary ---
Author Organization [facility] Address [address] [place] [address] Care Team Providers Care Solar Energy Specialist Name Role Phone Katia Stone PA-C Primary Care Provider +1- [phone] Encounter Details Date Type Department Care Team (Late st Contact Info) Description 04/30/2022 Lab Requisition [facility] Pathology & Laboratory Medicine - [address] [address] Ike Chahal MD [address] [place] [phone] Disorder of the skin and subcutaneous tissue, [...] explore management options, if applicable. 05/01/2022 14:29 [facility] Final Diagnosis A. SKIN OF NASAL TIP, EXCISION: - Dermal fibrosis, adipose accumulation, and edema with sebaceous hyperplasia and lymphoplasmacytic inflammation. See comment. 05/01/2022 14:29 [facility] Diagnosis Comment The histopathologic features, in the correct clinical setting, are most suggestive of rhinophyma. There is no evidence of malignancy. 05/01/2022 14:29 [facility] Attestation By the signature below, the attending physician certifies that they have 1) personally conducted a gross and/or microscopic examination of the described specimen(s), and/or personally interpreted the results of laboratory testing of the described specimen(s), and 2) personally rendered or confirmed the above diagnosis. 05/01/2022 14:29 [facility] at 1429 Microscopic Description Sections [...] direct continuity with overlying epidermis. 05/01/2022 14:29 [facility] Clinical History Nasal tip lesion; clinical diagnosis code: L98.9 05/01/2022 14:29 [facility] Gross Description A. Received in [...] sections GIRISH GOMEZ(ASCP) 04/30/2022 9:39 05/01/2022 14:29 [facility] Performing Lab [facility] 05/01/2022 14:29 [facility] Scanned Images 05/01/2022 14:29 [facility] Tissue TISSUE SPECIMEN FROM SKIN / Unknown 04/29/2022 14:00 EST 04/30/2022 9:00 EST Ike Chahal MD PATHOLOGY ORDERABLES [facility] [address] [place] [address] documented in this encounter Visit Diagnoses Diagnosis Disorder of the skin and subcutaneous tissue, unspecified documented in this encounter Care Teams Solar Energy Specialist Relationship Specialty Start Date End Date Katia Stone, BELLAC [address] [facility] [place] [phone] PCP - General 05/02/17 documented as of this encounter
--- OUTSIDE RECORDS SUMMARY | 2023-12-22 18:12 | XMS_ITS | Encounter Summary ---
Author Organization [facility] Address [address] [place] [address] Care Team Providers Care Professor Of Music Name Role Phone Katia Stone PA-C Primary Care Provider +1- [phone] Reason for Visit * (Routine/Next Available) - New Request Specialty Diagnoses / Procedures Referred By Contac t Referred To Contact Procedures CT OUTSIDE IMAGES BODY Unknown, Provider, Referral ID Status Reason Start Date Expiration Date V isits Requested Visits Authorized [id number] New Request 06/20/2021 1 1 Encounter Details Date Type Department Care Team (Latest Contact Info) Description 06/20/2021 15:36 EDT - 06/20/2021 23:59 EDT Hospital Encounter [facility] Secondary Reads [place] Discharge Disposition: Home [...] on filedocumented in this encounter Care Teams Professor Of Music Relationship Specialty Start Date End Date Katia Stone, PABijalC [address] [place] [phone] PCP - General 05/02/17 documented as of this encounter
--- OUTSIDE RECORDS SUMMARY | 2023-12-22 18:12 | XMS_ITS | Encounter Summary ---
Author Organization [facility] Address [address] [place] [address] Care Team Providers Care Bungy Jump Master Name Role Phone Katia Stone PA-C Primary Care Provider +1- [phone] Encounter Details Date Type Department Care Team (Late st Contact Info) Description 08/17/2023 Lab Requisition [facility] Pathology & Laboratory Medicine - [address] [address] Outr Resulting Lab, Provider Social History Tobacco [...] 275 - 295 mOsm/kg 08/17/2023 16:24 EDT [facility] Blood VENOUS BLOOD / Unknown 08/16/2023 20:10 EDT 08/17/2023 16:03 EDT Provider Outr Resulting Lab CHEMISTRY & BLOOD GAS ORDERABLES [facility] [address] [place] [address] documented in this encounter Visit Diagnoses Not on filedocumented in this encounter Care Teams Bungy Jump Master Relationship Specialty Start Date End Date Katia Stone PA-C [address] [place] [phone] PCP - General 05/02/17 documented as of this encounter
--- OUTSIDE RECORDS SUMMARY | 2023-12-22 18:12 | XMS_ITS | Clinical Summary ---
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 Hypertensive urgency 05/01/2017 Heart block AV third degree ([facility]) 04/30/2017 Resolved Problems Problem Noted Date Diagnosed Date Resolved Date Acute on chronic diastolic c ongestive heart failure ([facility]) 05/01/2017 05/27/2017 Surgical History Surgery Date Site/Laterality Comments PACEMAKER PLACEMENT 03/03/2017 - 03/02/2018 OTHER SURGICAL HISTORY 06/19/20 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 CAD (coronary artery disease) per pt Community acquired pneumonia pt states i get pneumonia every year - feels like he has it now - had a collapsed lung whoel pacer issues per pt - Mink Rancher office aware Family History Medical History Relation [...] season) 2023 Medical Devices Implanted Type Area Market Intelligence Consultant Device Identifier Shelf Expiration Date Model / Serial / Lot [id number] [facility] [id number] Implanted:05/02 (Quantity not on file) Lead [address] 7742 [employer] [facility] / [id number] / Description:Implant record l oaded by [employer] Chronic[employer] import. 3830 [employer] Mri [employer]can - [id number] Implanted:05/21 (Quantity not on file) Lead Medtronic 3830 [employer] MRI SURESCAN / [id number] / Description:Implant record l oaded by [employer] import. L111 [employer] Mri - [id number] Implanted:05/02 (Quantity not on file) Pacemaker [employer] L111 [employer] MRI / [id number] / Description:Implant record l oaded by [employer] Chronic[employer] import. Advance Directives For more information, please contact: [phone] * Full Code (Latest Code Status on [...] the discussion? Not Discusse d Care Teams Cable Mechanic Relationship Specialty Start Date End Date Katia Stone, MINGO [address] [place] [phone] PCP - General 05/02/17
--- OUTSIDE RECORDS SUMMARY | 2023-12-22 18:12 | XMS_ITS | Encounter Summary ---
Author Organization [facility] Address [address] [place] [address] Care Team Providers Care Professor Of Pathology Name Role Phone Katia Stone PA-C Primary Care Provider +1- [phone] Encounter Details Date Type Department Care Team (Late st Contact Info) Description 03/13/2022 Lab Requisition [facility] Pathology & Laboratory Medicine - [address] [address] Outr Resulting Lab, Provider Social History Tobacco [...] Antigen Detection Negative Negative 03/13/2022 21:38 EST [facility] Urine URINE / Unknown 03/12/2022 1 9:15 EST 03/13/2022 17:44 EST Provider Outr Resulting Lab MICROBIOLOGY - GENERAL ORDERABLES Performing Organization Address City/State/[facility] Co de Phone Number [facility] [address] [place] [address] documented in this encounter Visit Diagnoses Not on filedocumented in this encounter Care Teams Professor Of Pathology Relationship Specialty Start Date End Date Katia Stone, PABijalC [address] [place] [address] PCP - General 05/02/17 documented as of this encounter
--- OUTSIDE RECORDS SUMMARY | 2023-12-22 18:12 | XMS_ITS | Encounter Summary ---
Author Organization [facility] Address [address] [place] [address] Care Team Providers Care Security Management Specialist Name Role Phone Katia Stone PA-C Primary Care Provider +1- [phone] Encounter Details Date Type Department Care Team (Late st Contact Info) Description 09/14/2020 Results Only [facility] [phone] Rowan Abad, TAIWO [address] [place] [phone] Social History Tobacco Use Types Packs/Day [...] - 450 10 3/uL 09/14/2020 6:07 EDT [facility] 09/14/2020 5:35 EDT 09/14/2020 5:46 EDT Narrative [facility] - 09/14/2020 6:16 EDT Comment ENOXAPARIN MONITORING Rowan Abad NP HEMATOLOGY & PF4 ORD ERABLES Performing Organization Address City/State/[facility] Co de Phone Number [facility] [address] [place] [address] * (ABNORMAL) CREATININE WITH GFR - PMC (09/14/2020 5:35 EDT) Creatinine 0.58(L) 0.70 - 1.30 mg/dl 09/14/2020 6:09 EDT [facility] Estimated GFR >60 >60 09/14/2020 6:09 T [facility] Comment: EGFR UNITS: mL/min/1.73 m 2 CKD-EPI Equation used to calculate. 09/14/2020 5:35 EDT 09/14/2020 5:46 EDT Rowan Abad NP CHEMISTRY & BLOOD GA S ORDERABLES [facility] [address] [place] [address] documented in this encounter Visit Diagnoses Not on filedocumented in this encounter Care Teams Security Management Specialist Relationship Specialty Start Date End Date Katia Stone, MINGO [address] [place] [phone] PCP - General 05/02/17 documented as of this encounter
--- OUTSIDE RECORDS SUMMARY | 2023-12-22 18:12 | XMS_ITS | Encounter Summary ---
Author Organization [facility] Address [address] [place] [address] Care Team Providers Care Maintenance Pipefitter Name Role Phone Katia Stone PA-C Primary Care Provider +1- [phone] Encounter Details Date Type Department Care Team (Late st Contact Info) Description 06/21/2021 Lab Requisition [facility] Pathology & Laboratory Medicine - [address] [address] Virginia Price, DO [address] [facility] [place] [address] Acute cholecystitis Social History Tobacco Use Types [...] explore management options, if applicable. 06/26/2021 10:43 [facility] Final Diagnosis A. GALLBLADDER, CHOLECYSTECTOMY: - Acute and chronic erosive cholecystitis. 06/26/2021 10:43 [facility] Attestation There was significant resident/fellow involvement in the diagnostic evaluation of this case. By the signature below, the attending physician certifies that they have personally conducted a gross and/or microscopic examination of the described specimens and rendered or confirmed the above diagnosis. 06/26/2021 10:43 [facility] at 1043 Clinical History Cholecystitis 06/26/2021 10:43 [facility] Gross Description A. Received in [...] gallbladder or free-floating within the container. Two claim representative sections and the en face cystic duct margin are submitted in A1. GIRISH GOMEZ(ASCP) 06/22/2021 7:58 06/26/2021 10:43 EDT [facility] Resident/Emile w: Chayo Chatman MD 06/26/2021 10:43 EDT [facility] Performing Lab [facility] 06/26/2021 10:43 EDT [facility] Scanned Images 06/26/2021 10:43 EDT [facility] Tissue ENTIRE GALLBLADDER / Unknown 06/21/2021 11:58 EDT 06/21/2021 17:30 EDT Virginia Price DO PATHOLOGY ORDERABLES [facility] [address] [place] [address] documented in this encounter Visit Diagnoses Diagnosis Acute cholecystitis documented in this encounter Additional Health Concerns Infection Onset Date Last Indicated Resolved Time RSV 01/31/2022 01/31/2022 02/10/2022 22:1 5 EST documented as of this encounter Care Teams Maintenance Pipefitter Relationship Specialty Start Date End Date Katia Stone, MINGO [address] [place] [phone] PCP - General 05/02/17 documented as of this encounter
--- OUTSIDE RECORDS SUMMARY | 2023-12-22 18:12 | XMS_ITS | Encounter Summary ---
Author Organization [facility] Address [address] [place] [address] Care Team Providers Care Homebirth Midwife Name Role Phone Katia Stone PA-C Primary Care Provider +1- [phone] Reason for Visit * Reason Comments Diarrhea Extremity Weakness Alcohol Problem Palliative Care Symptom Management Encounter Details Date Type Department Care Team (Late st Contact Info) Description 08/25/2020 External Contact [facility] Palliative Care [address] [place], [place] [address] Keara Stinson MD [address] [facility] [place] [place] [address] [place] [address] Frailty (Primary Dx); ETOH abuse; [...] chronic ETOH use who was admitted to [facility] with weakness, diarrhea, and regular ETOH [...] be receptive to formal psychotherapy. A bereavement desizing machine offbearer through [facility] may be a good fit as well. Re: his advance directive. 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 Present for Visit: Tim, [...] his heart attack and was transferred to [facility]. He has had several cardiac issues since. He is originally from [place] and lived in the [place] area until 2018 when his medical issues became more acute. Since then, he has lived in [place] [facility], had lived with his son Tyrese until his and more recently living with Tyrese's partner Whitney. He was raised on a farm in [place] with 7 siblings. He farmed [...] Stinson MD 08/25/2020 16:11 Site of Visit: [facility] I spent a total of 55 [...] specialist documented in this encounter Care Teams Homebirth Midwife Relationship Specialty Start Date End Date Katia Stone, BELLAC [address] [place] [address] PCP - General 05/02/17 documented as of this encounter
--- OUTSIDE RECORDS SUMMARY | 2023-12-22 18:12 | XMS_ITS | Encounter Summary ---
Author Organization [facility] Address [address] [place] [address] Care Team Providers Care Pump Servicer Supervisor Name Role Phone Katia Stone PA-C Primary Care Provider +1- [phone] Reason for Visit * Reason Onset Date Comments Discuss Possible Transfer 06/20/2021 Encounter Details Date Type Department Care Team (Late st Contact Info) Description 06/20/2021 Telephone [facility] [address] [place], [place] [id number] Amos Romero MD [address] [address] Discuss Possible Transfer Social History [...] 06/20/2021 1415 EDT PPS Call Requesting Facility: [facility] Requesting Provider: Dr. Alegria Date: [...] filedocumented in this encounter Care Teams Pump Servicer Supervisor Relationship Specialty Start Date End Date Katia Stone, PABijalC [address] [place] [phone] PCP - General 05/02/17 documented as of this encounter
--- OUTSIDE RECORDS SUMMARY | 2023-12-22 18:12 | XMS_ITS | Encounter Summary ---
Author Organization [facility] Address [address] [place] [address] Care Team Providers Care Axle Polisher Name Role Phone Katia Stone PA-C Primary Care Provider +1- [phone] Encounter Details Date Type Department Care Team (Late st Contact Info) Description 09/06/[address] [facility] [phone] Rowan Abad, TAIWO [address] [place] [phone] Social History Tobacco Use Types Packs/Day [...] * PLATELET COUNT (09/06/2020 5:05 EDT) Pathologist [facility] PLATELET COUNT - [facility] 236 150 - 450 10 3/uL 09/06/2020 5:55 EDT LAB 09/06/2020 5:05 EDT 09/06/2020 5:32 EDT Narrative LAB - 09/06/2020 5:58 EDT Comment ENOXAPARIN MONITORING Rowan Abad NP HEMATOLOGY & PF4 ORD ERABLES Performing Organization Address City/State/[facility] Co de Phone Number LAB [address] [place] [address] * (ABNORMAL) CREATININE WITH GFR - PMC (09/06/2020 5:05 EDT) Pathologist [facility] Creatinine 0.60(L) 0.70 - 1.30 mg/dl 09/06/2020 5:52 EDT LAB Estimated GFR >60 >60 09/06/2020 5:52 EDT LAB Comment: EGFR UNITS: mL/min/1.73 m 2 CKD-EPI Equation used to calculate. 09/06/2020 5:05 EDT 09/06/2020 5:32 EDT Rowan Abad NP CHEMISTRY & BLOOD GA S ORDERABLES LAB [address] [place] [address] documented in this encounter Visit Diagnoses Not on filedocumented in this encounter Care Teams Axle Polisher Relationship Specialty Start Date End Date Katia Stone, MINGO [address] [place] [phone] PCP - General 05/02/17 documented as of this encounter
--- OUTSIDE RECORDS SUMMARY | 2023-12-22 18:12 | XMS_ITS | Encounter Summary ---
Author Organization [facility] Address [address] [place] [address] Care Team Providers Care Biological Lab Technician Name Role Phone Katia Stone PA-C Primary Care Provider +1- [phone] Encounter Details Date Type Department Care Team (Late st Contact Info) Description 08/17/2023 Lab Requisition [facility] Pathology & Laboratory Medicine - [address] [address] Outr Resulting Lab, Provider Social History Tobacco [...] 150 - 1,150 mOsm/kg 08/17/2023 16:14 EDT [facility] Urine URINE / Unknown 08/16/2023 2 1:50 EDT 08/17/2023 16:03 EDT Provider Outr Resulting Lab URINALYSIS O RDERABLES [facility] [address] [place] [address] documented in this encounter Visit Diagnoses Not on filedocumented in this encounter Care Teams Biological Lab Technician Relationship Specialty Start Date End Date Katia Stone PA-C [address] [place] [phone] PCP - General 05/02/17 documented as of this encounter
--- OUTSIDE RECORDS SUMMARY | 2023-12-22 18:12 | XMS_ITS | Encounter Summary ---
Author Organization [facility] Address [address] [place] [address] Care Team Providers Care Security Services Specialist Name Role Phone Katia Stone PA-C Primary Care Provider +1- [phone] Encounter Details Date Type Department Care Team (Late st Contact Info) Description 09/15/2020 Results Only [facility] Lab [address] [place] [address] Junior Ray MD [address] [place] [address] Social History Tobacco Use Types [...] 4.0 - 10.5 10 3/uL 09/15/2020 5:45 [facility] RBC 3.26(L) 4.70 - 6.00 10 6/uL 09/15/2020 5:45 [facility] Hemoglobin 11.2(L) 13.5 - 18.0 g/dL 09/15/2020 5:45 [facility] HCT 31.9(L) 42.0 - 52.0 % 09/15/2020 5:45 [facility] MCV 97.9 78 - 100 fL 09/15/2020 5:45 [facility] MCH 34.4(H) 27 - 31 pg 09/15/2020 5:45 [facility] MCHC 35.1 32 - 37 g/dL 09/15/2020 5:45 [facility] RDW-CV - PMC 12.4 <14.7 % 09/15/2020 5:45 [facility] PLATELET COUNT - PMC 256 150 - 450 10 3/uL 09/15/2020 5:45 [facility] MPV 10.6 9.2 - 12.0 fL 09/15/2020 5:45 [facility] 09/15/2020 5:25 EDT 09/15/2020 5:28 EDT Junior Ray MD HEMATOLOGY & PF4 OR DERABLES [facility] [address] [place] [address] documented in this encounter Visit Diagnoses Not on filedocumented in this encounter Care Teams Security Services Specialist Relationship Specialty Start Date End Date Katia Stone, PABijalC [address] [place] [phone] PCP - General 05/02/17 documented as of this encounter
--- OUTSIDE RECORDS SUMMARY | 2023-12-22 18:12 | XMS_ITS | Encounter Summary ---
Author Organization [facility] Address [address] [place] [address] Care Team Providers Care Credit Collection Associate Name Role Phone Katia Stone PA-C Primary Care Provider +1- [phone] Encounter Details Date Type Department Care Team (Late st Contact Info) Description 02/01/[address] [facility] Pathology & Laboratory Medicine - [address] [address] Outr Resulting Lab, Provider Social History Tobacco [...] Result (FLARES) Negative Negative 02/02/2022 1:45 EST [facility] FLU B RNA Result (FLBRES) Negative Negative 02/02/2022 1:45 EST [facility] RSV RNA Result (RSVRES) Positive(A) Negative 02/02/2022 1:45 EST [facility] Swab ENTIRE NASOPHARYNX / Unknown 01/31/2022 9:47 EST 02/01/2022 20:34 EST Provider Outr Resulting Lab MICROBIOLOGY - GENERAL ORDERABLES Performing Organization Address City/State/[facility] Co de Phone Number [facility] [address] [place] [address] documented in this encounter Visit Diagnoses Not on filedocumented in this encounter Additional Health Concerns Infection Onset Date Last Indicated Resolved Time RSV 01/31/2022 01/31/2022 02/10/2022 22:1 5 EST documented as of this encounter Care Teams Credit Collection Associate Relationship Specialty Start Date End Date Katia Stone, PABijalC [address] [facility] [place] [phone] PCP - General 05/02/17 documented as of this encounter
--- OUTSIDE RECORDS SUMMARY | 2023-12-22 18:12 | XMS_ITS | Encounter Summary ---
Author Organization [facility] Address [address] [place] [address] Care Team Providers Care Manager Electrical Name Role Phone Katia Stone PA-C Primary Care Provider +1- [phone] Encounter Details Date Type Department Care Team (Late st Contact Info) Description 08/25/2020 Lab Requisition [facility] Pathology & Laboratory Medicine - [address] [address] Outr Resulting Lab, Provider Social History Tobacco [...] Few Usual skin jesi 08/27/2020 15:22 EDT [facility] Smear Few Neutrophils Present(A) 08/27/2020 15:22 EDT [facility] Smear No bacteria seen(A) 08/27/2020 15:22 EDT [facility] Swab ENTIRE UPPER LIMB / Unknown 08/25/2020 14:15 EDT 08/25/2020 21:17 EDT Provider Outr Resulting Lab MICROBIOLOGY - GENERAL ORDERABLES [facility] [address] [place] [address] documented in this encounter Visit Diagnoses Not on filedocumented in this encounter Additional Health Concerns Infection Onset Date Last Indicated Resolved Time RSV 01/31/2022 01/31/2022 02/10/2022 22:1 5 EST documented as of this encounter Care Teams Manager Electrical Relationship Specialty Start Date End Date Katia Stone, PABijalC [address] [facility] [place] [facility] [place] [phone] PCP - General 05/02/17 documented as of this encounter
--- OUTSIDE RECORDS SUMMARY | 2023-12-22 18:13 | XMS_ITS | Encounter Summary ---
Author Organization [facility] Address [address] [place] [address] Care Team Providers Care Export Administrator Name Role Phone Katia Stone PA-C Primary Care Provider +1- [phone] Encounter Details Date Type Department Care Team (Late st Contact Info) Description 08/08/2020 Results Only [facility] Dermatology - [facility] [place] [address] [place] [address] Virginia Quintana MD [address] [place] [address] Social History Tobacco Use Types Packs/Day Years [...] Requests ADD ON DONE 08/08/2020 21:57 EDT [facility] Comment: All tests (see tests in sample comments) have been added as requested. 08/08/2020 21:1 7 EDT 08/08/2020 21:57 EDT Narrative [facility] - 08/08/2020 21:57 EDT ED this evening Mg [place] Quintana MD CHEMISTRY & BLOOD GA S ORDERABLES Performing Organization Address [facility] Co de Phone Number [facility] [address] [place] [address] * (ABNORMAL) MAGNESIUM (08/08/2020 16:47 EDT) Magnesium 1.7(L) 1.8 - 2.4 mg/dl 08/08/2020 22:02 EDT [facility] 08/08/2020 16:4 7 EDT 08/08/2020 16:52 EDT Virgiina Quintana MD CHEMISTRY & BLOOD GA S ORDERABLES Performing Organization Address [facility] Co de Phone Number [facility] [address] [place] [address] documented in this encounter Visit Diagnoses Not on filedocumented in this encounter Care Teams Export Administrator Relationship Specialty Start Date End Date Katia Stone, PABijalC [address] [place] [phone] PCP - General 05/02/17 documented as of this encounter
--- OUTSIDE RECORDS SUMMARY | 2023-12-22 18:13 | XMS_ITS | Encounter Summary ---
Author Organization [facility] Address [address] [place] [address] Care Team Providers Care Steward/Stewardess Deck Name Role Phone Katia Stone PA-C Primary Care Provider +1- [phone] Encounter Details Date Type Department Care Team (Late st Contact Info) Description 08/13/2020 Lab Requisition [facility] Pathology & Laboratory Medicine - [address] [address] Outr Resulting Lab, Provider Social History Tobacco [...] ova and parasites seen. 08/14/2020 11:44 EDT [facility] Feces SPECIMEN FROM RECTUM / Unknown 08/11/2020 14:50 EDT 08/13/2020 15:22 EDT Narrative [facility] - 08/14/2020 11:44 EDT (If Cryptosporidium, Cyclospora, or Microsporidium are suspected, specific tests must be requested.) Single negative specimen does not rule out the possibility of a parasitic infection. Provider Outr Resulting Lab MICROBIOLOGY - GENERAL ORDERABLES [facility] [address] [place] [address] documented in this encounter Visit Diagnoses Not on filedocumented in this encounter Additional Health Concerns Infection Onset Date Last Indicated Resolved Time RSV 01/31/2022 01/31/2022 02/10/2022 22:1 5 EST documented as of this encounter Care Teams Steward/Stewardess Deck Relationship Specialty Start Date End Date Katia Stone, PABijalC [address] [place] [phone] PCP - General 05/02/17 documented as of this encounter
--- OUTSIDE RECORDS SUMMARY | 2023-12-22 18:13 | XMS_ITS | Encounter Summary ---
Author Organization [facility] Address [address] [place] [address] Care Team Providers Care Cattle Shipper Name Role Phone Katia Stone PA-C Primary Care Provider +1- [phone] Reason for Visit * Reason Onset Date Comments Coordination Of Care 04/19/2020 Returning Call 04/20/2020 Encounter Details Date Type Department Care Team (Late st Contact Info) Description 04/19/2020 Telephone [facility] Cardiology - [address] [place], [place] [phone] Tony Rosenberg MD [address] [place] [address] [address] [place] [address] Coordination Of Care; Returning Call [...] Adam Ordoñez - 04/20/2020 1508 EST Patient's casey saw operator returning call to Belinda. Please call. * Telephone Encounter - Belinda Falk RN - 04/20/2020 1457 EST Call placed to casey saw operator regarding patient unable to reach by phone. Message left on voice mail to call office back with call back number [phone]. * Telephone Encounter - Conner Mccall - 04/19/2020 1118 EST Reason for Call: Coordination Of Care Summary/Symptoms: Maru patients Neurodiagnostic Tech reaching out to get more information on [...] on filedocumented in this encounter Care Teams Cattle Shipper Relationship Specialty Start Date End Date Katia Stone PA-C [address] [place] [phone] PCP - General 05/02/17 documented as of this encounter
--- OUTSIDE RECORDS SUMMARY | 2023-12-22 18:13 | XMS_ITS | Encounter Summary ---
Author Organization [facility] Address [address] [place] [address] Care Team Providers Care Funding Analyst Name Role Phone Katia Stone PA-C Primary Care Provider +1- [phone] Encounter Details Date Type Department Care Team (Late st Contact Info) Description 08/19/2020 Results Only [facility] [address] [place] [address] Junior Ray MD [address] [place] [address] Social History Tobacco Use Types [...] 134(L) 136 - 145 mEq/L 08/19/2020 7:41 [facility] Potassium 3.5 3.5 - 5.1 mEq/L 08/19/2020 7:41 [facility] Chloride 99 96 - 107 mEq/L 08/19/2020 7:41 [facility] CO2 Total 29.4 21 - 32 mEq/L 08/19/2020 7:41 [facility] Anion Gap 5.6 mEq/L 08/19/2020 7:41 [facility] BUN 8 7 - 25 mg/dl 08/19/2020 7:41 [facility] Creatinine 0.48(L) 0.70 - 1.30 mg/dl 08/19/2020 7:41 [facility] Estimated GFR >60 >60 08/19/2020 7:41 [facility] Comment: EGFR UNITS: mL/min/1.73 m 2 CKD-EPI Equation used to calculate. Glucose 93 74 - 106 mg/dl 08/19/2020 7:41 [facility] Calcium 8.3(L) 8.5 - 10.1 mg/dl 08/19/2020 7:41 [facility] 08/19/2020 7:10 EDT 08/19/2020 7:13 EDT Junior Ray MD CHEMISTRY & BLOOD G ORDERABLES [facility] [address] [place] [address] documented in this encounter Visit Diagnoses Not on filedocumented in this encounter Care Teams Funding Analyst Relationship Specialty Start Date End Date Katia Stone, PABijalC [address] [facility] [place] [facility] [place] [phone] PCP - General 05/02/17 documented as of this encounter
--- OUTSIDE RECORDS SUMMARY | 2023-12-22 18:13 | XMS_ITS | Encounter Summary ---
Author Organization [facility] Address [address] [place] [address] Care Team Providers Care Legal Clerk Name Role Phone Katia Stone PA-C Primary Care Provider +1- [phone] Encounter Details Date Type Department Care Team (Late st Contact Info) Description 07/28/2020 Results Only [facility] [address] [place], [place] [address] Katia Stone, MINGO [address] [place] [address] Social History Tobacco Use Types [...] Folate 9.0 >8.6 ng/mL 08/01/2020 9:08 EDT [facility] 07/28/2020 14:3 8 EDT 08/01/2020 9:03 EDT Katia Stone PA-C CHEMISTRY & BLOOD GAS ORDERABLES [facility] [address] [place] [address] * VITAMIN B12 (07/28/2020 14:38 EDT) Vitamin B12 265 193 - 986 pg/mL 08/01/2020 9:08 EDT [facility] Comment: The results of this assay can be falsely elevated due to the consumption of Biotin. 07/28/2020 14:3 8 EDT 08/01/2020 9:03 EDT Katia Stone PA-C CHEMISTRY & BLOOD GAS ORDERABLES Performing Organization Address City/[facility]/ZIP Co de Phone Number [facility] [address] [place] [address] * (ABNORMAL) IRON,TIBC,FERRITIN GROUP - PMC (07/28/2020 14:38 EDT) Iron 158 65 - 175 mcg/dL 08/01/2020 9:08 EDT [facility] Iron Binding Capacity 212(L) 250 - 450 mcg/dL 08/01/2020 9:08 EDT [facility] PERCENT IRON SATURATION - PMC 75(H) 14 - 50 % 08/01/2020 9:08 EDT [facility] Ferritin >1,000(H) 26 - 388 ng/mL 08/01/2020 9:08 EDT [facility] 07/28/2020 14:3 8 EDT 08/01/2020 9:03 EDT Katia Stone PA-C CHEMISTRY & BLOOD GAS ORDERABLES Performing Organization Address [facility] Co de Phone Number [facility] [address] [place] [address] * MESSAGE - PMC (07/28/2020 14:38 EDT) MESSAGE - PMC 07/29/2020 2:55 EDT [facility] Comment: WE HAVE NOT RECEIVED ORDERS. PLEASE SEND THEM TO US. THANK YOU. 07/28/2020 14:3 8 EDT 07/28/2020 15:49 EDT Narrative [facility] - 07/29/2020 2:55 EDT NO ORDERS TIGER AND LAV Katia Stone PA-C CHEMISTRY & BLOOD GAS ORDERABLES Performing Organization Address City/[facility]/ZIP Co de Phone Number [facility] [address] [place] [address] documented in this encounter Visit Diagnoses Not on filedocumented in this encounter Care Teams Legal Clerk Relationship Specialty Start Date End Date Katia Stone PA-C [address] [place] [address] PCP - General 05/02/17 documented as of this encounter
--- OUTSIDE RECORDS SUMMARY | 2023-12-22 18:13 | XMS_ITS | Encounter Summary ---
Author Organization [facility] Address [address] [place] [address] Care Team Providers Care Tow Motor Driver Name Role Phone Katia Stone PA-C Primary Care Provider +1- [phone] Reason for Visit * Reason Onset Date Comments Appointment Related 06/06/2020 Encounter Details Date Type Department Care Team (Late st Contact Info) Description 06/06/2020 Telephone [facility] Cardiothoracic Surgery - [facility] [address] [place] [address] Ja Browne MD [address] [place] [phone] Appointment Related Social History Tobacco Use [...] Telephone Encounter - Alma Dhillon - 06/06/2020 6857 EDT At her request, I have telephoned Nurse Real Estate Associate Attorney, Nila, at [facility] to advise of this patient's surgery [...] on filedocumented in this encounter Care Teams Tow Motor Driver Relationship Specialty Start Date End Date Katia Stone, BELLAC [address] [place] [phone] PCP - General 05/02/17 documented as of this encounter
--- OUTSIDE RECORDS SUMMARY | 2023-12-22 18:13 | XMS_ITS | Encounter Summary ---
Author Organization [facility] Address [address] [place] [address] Care Team Providers Care Outpatient Facility Physical Therapist Name Role Phone Katia Stone PA-C Primary Care Provider +1- [phone] Encounter Details Date Type Department Care Team (Late st Contact Info) Description 08/11/2020 Results Only [facility] [address] [place] [address] Jayesh Olmos MD [address] [place] [address] Social History Tobacco Use Types [...] - PMC SEE NOTES 021 15:34 EDT [facility] Comment: RESULT: No ova and parasites seen. Source:stool (If Cryptosporidium, Cyclospora, or Microsporidium are suspected, specific tests must be requested.) Single negative specimen does not rule out the possibility of a parasitic infection. Test performed [place] [id number] 08/11/2020 14:5 0 EDT 08/12/2020 14:54 EDT Narrative [facility] - 08/14/2020 15:34 EDT stool Jayesh Olmos MD MICROBIOLOGY - GENERAL ORDERABLES [facility] [address] [place] [address] * FECAL BACTERIAL PATHOGENS BY PCR (08/11/2020 14:50 EDT) Salmonella PCR Negative Negative 08/13/2020 19:57 EDT [facility] Shigella/Enteroin vasive E. coli Negative Negative 08/13/2020 19:57 EDT [facility] HN LAB CAMPYLOBACTER PCR Negative Negative 08/13/2020 19:57 EDT [facility] Shiga Toxin PCR Negative Negative 1 7:29 EDT [facility] Comment: Test performed or referred by The [address] [address] 08/11/2020 14:5 0 EDT 08/12/2020 14:53 EDT Jayesh Olmos MD MICROBIOLOGY - GENERAL ORDERABLES Performing Organization Address City/State/[facility] Co de Phone Number [facility] [address] [place] [address] documented in this encounter Visit Diagnoses Not on filedocumented in this encounter Care Teams Outpatient Facility Physical Therapist Relationship Specialty Start Date End Date Katia Stone, BELLAC [address] [place] [address] PCP - General 05/02/17 documented as of this encounter
--- OUTSIDE RECORDS SUMMARY | 2023-12-22 18:13 | XMS_ITS | Encounter Summary ---
Author Organization [facility] Address [address] [place] [address] Care Team Providers Care Ladies Attendant Name Role Phone Katia Stone PA-C Primary Care Provider +1- [phone] Reason for Visit * Reason Onset Date Comments Appointment Related 06/19/2020 Encounter Details Date Type Department Care Team (Late st Contact Info) Description 06/19/2020 Telephone [facility] Cardiothoracic Surgery - [facility] [address] [place] [address] Ja Browne MD [address] [place] [phone] Appointment Related Social History Tobacco Use [...] - 06/19/2020 0858 EDT TC to Nila, Hull Grinder, at patient's PCP Office. She is aware that patient has a PAT appointment today between 4:00 and 4:45 pm with an Anesthesia Nurse. Patient is scheduled for surgery on 06/26 at 12:10 pm and should arrive in the Registration Department at 10:10 am. Hull Grinder states that patient has a COVID test scheduled for 06/22 at [facility]. New telephone number noted for Hull Grinder is [phone]. documented in this encounter Plan of Treatment Not on file documented as of this encounter Visit Diagnoses Not on filedocumented in this encounter Care Teams Ladies Attendant Relationship Specialty Start Date End Date Katia Stone PA-C [address] [phone] PCP - General 05/02/17 documented as of this encounter
--- OUTSIDE RECORDS SUMMARY | 2023-12-22 18:13 | XMS_ITS | Encounter Summary ---
Author Organization [facility] Address [address] [place] [address] Care Team Providers Care Belt Press Operator Name Role Phone Katia Stone PA-C Primary Care Provider +1- [phone] Encounter Details Date Type Department Care Team (Late st Contact Info) Description 08/09/2020 Results Only Imaging [facility] Radiology Results [address] [place], [place] [address] Ester Valerio MD [address] [place] [address] [place] [address] Social History Tobacco Use Types [...] 16:38 EDT ?[facility]: [facility] ?[address] ?[place] [address] ?Diagnostic Imaging Report ? Signed ? Patient Name:DAVID FARFAN ? Date of :1950 ?MR Number:[id number] ? Age:69 ?Sex:M ? Category: CR ?Date [...] Procedure Note Poncho Erickson [facility] [address] [address] Diagnostic Imaging Report Signed Patient Name:DAVID FARFAN FAccount Number:[id number] Date of :1950 MRNumber:[id number] Age:69 Sex:M Category: CR Date ofExam:08/09/20 Procedure: CR: Abd; 2 ViewsAccession: [id number] Ordering Physician: Ester Valerio MD Patient CC: [...] documented as of this encounter Care Teams Belt Press Operator Relationship Specialty Start Date End Date Katia Stone PA-C [address] [place] [address] PCP - General 05/02/17 documented as of this encounter
--- OUTSIDE RECORDS SUMMARY | 2023-12-22 18:13 | XMS_ITS | Encounter Summary ---
Author Organization [facility] Address [address] [place] [address] Care Team Providers Care Weblogic Developer Name Role Phone Katia Stone PA-C Primary Care Provider +1- [phone] Reason for Visit * Reason Onset Date Comments Labs Only 05/17/2020 Lab orders for p re-op blood work Encounter Details Date Type Department Care Team (Late st Contact Info) Description 05/17/2020 Telephone [facility] Cardiothoracic Surgery - [facility] [address] [place] [address] Ja Browne MD [address] [place] [phone] Labs Only (Lab orders for pre-op [...] note of 05/16. Explained again to Nila Dental Coordinator. * Telephone Encounter - Melania Dumas - 05/17/2020 1044 EDT Nila (hat blocker from [facility]) calling to find out if patient's lab orders were faxed to [place]. Per Nila, patient did not have his blood drawn while here at [facility] on 05/16/2020. Esthetics Instructor explained to caller that patients are usually unable to have pre-op blood bank done at any other facility but designer/writer will defer to CT Surgery RN. Nila requesting return call to [phone], extension: 7. documented in this encounter Plan of Treatment Not on file documented as of this encounter Visit Diagnoses Not on filedocumented in this encounter Care Teams Weblogic Developer Relationship Specialty Start Date End Date Katia Stone, BELLAC [address] [place] [phone] PCP - General 05/02/17 documented as of this encounter
--- OUTSIDE RECORDS SUMMARY | 2023-12-22 18:13 | XMS_ITS | Encounter Summary ---
Author Organization [facility] Address [address] [place] [address] Care Team Providers Care Dental Secretary Name Role Phone Katia Stone PA-C Primary Care Provider +1- [phone] Reason for Visit * Reason Onset Date Comments Confirmation 05/08/2020 Encounter Details Date Type Department Care Team (Late st Contact Info) Description 05/08/2020 Telephone [facility] Cardiothoracic Surgery - [facility] [address] [place] [address] Ja Browne MD [address] [place] [phone] Confirmation Social History Tobacco Use Types [...] 05/08/2020 1128 EST Spoke with Walker higgins Mico and confirmed patient's appointment with Dr. Browne for 05/16/2020 at 9:30 am. documented in this encounter Plan of Treatment Not on file documented as of this encounter Visit Diagnoses Not on filedocumented in this encounter Care Teams Dental Secretary Relationship Specialty Start Date End Date Katia Stone, PABijalC [address] [place] [phone] PCP - General 05/02/17 documented as of this encounter
--- OUTSIDE RECORDS SUMMARY | 2023-12-22 18:13 | XMS_ITS | Encounter Summary ---
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 From after-visit notes 04/12, it is clear to information writer that provider intends for pt to see Dr. Browne at [place]. Caller, case checker, and pt are unaware of a referral being sent to [facility], and seem to think that provider is still following care. Please call pt and case checker directly to let them know exactly what the plan of care is. * Telephone Encounter - Brenda Bocanegra - 05/01/2020 1409 EST Spoke with Nila. We don't have much device information here as the patient is managed by [facility]. They are wanting follow up from Dr. Rosenberg regarding the next steps for pt's device care. Told them I would see what I can do to help. * Telephone Encounter - Haja Pavon - 05/01/2020 1304 EST Nila @ [facility] called to follow-up on pacemaker [...] documented as of this encounter Care Teams Protection Specialist Relationship Specialty Start Date End Date Katia Stone, PABijalC [address] [place] [phone] PCP - General 05/02/17 documented as of this encounter
--- OUTSIDE RECORDS SUMMARY | 2023-12-22 18:13 | XMS_ITS | Encounter Summary ---
Author Organization [facility] Address [address] [place] [address] Care Team Providers Care Brick Grader Name Role Phone Katia Stone PA-C Primary Care Provider +1- [phone] Encounter Details Date Type Department Care Team (Late st Contact Info) Description 08/09/2020 Results Only [facility] Dermatology - [facility] [place] [address] [place] [address] Virginia Quintana MD [address] [place] [address] Social History Tobacco Use Types Packs/Day Years [...] 128(L) 136 - 145 mEq/L 08/09/2020 6:09 [facility] Potassium 3.3(L) 3.5 - 5.1 mEq/L 08/09/2020 6:09 [facility] Chloride 90(L) 96 - 107 mEq/L 08/09/2020 6:09 [facility] CO2 Total 27.4 21 - 32 mEq/L 08/09/2020 6:09 [facility] Anion Gap 10.6 mEq/L 08/09/2020 6:09 [facility] BUN 11 7 - 25 mg/dl 08/09/2020 6:09 [facility] Creatinine 0.71 0.70 - 1.30 mg/dl 08/09/2020 6:09 [facility] Estimated GFR >60 >60 08/09/2020 6:09 [facility] Comment: EGFR UNITS: mL/min/1.73 m 2 CKD-EPI Equation used to calculate. Glucose 117(H) 74 - 106 mg/dl 08/09/2020 6:09 [facility] Calcium 8.3(L) 8.5 - 10.1 mg/dl 08/09/2020 6:09 [facility] CALCIUM,CORRECTE D - PMC 9.4 8.5 - 10.5 mg/dl 08/09/2020 6:24 [facility] BILIRUBIN - PMC 1.30(H) 0.00 - 1.00 mg/dl 08/09/2020 6:24 [facility] AST 62(H) 15 - 37 U/L 08/09/2020 6:24 [facility] ALT 46 16 - 63 U/L 08/09/2020 6:24 [facility] Alkaline Phosphatase 114 46 - 116 U/L 08/09/2020 6:24 [facility] Total Protein 6.7 6.4 - 8.2 g/dl 08/09/2020 6:24 [facility] Albumin 2.6(L) 3.4 - 5.0 g/dl 08/09/2020 6:24 [facility] GLOBULIN - PMC 4.1 g/dl 08/09/2020 6:24 [facility] ALBUMIN/GLOBULIN RATIO - PMC 0.6 08/09/2020 6:24 [facility] 08/09/2020 5:35 EDT 08/09/2020 5:44 EDT Virginia Quintana MD CHEMISTRY & BLOOD GA S ORDERABLES [facility] [address] [place] [address] * (ABNORMAL) COMPLETE BLOOD COUNT AND DIFFERENTIAL (08/09/2020 5:35 EDT) WBC 10.3 4.0 - 10.5 10 3/uL 08/09/2020 6:00 [facility] RBC 2.98(L) 4.70 - 6.00 10 6/uL 08/09/2020 6:00 [facility] Hemoglobin 10.6(L) 13.5 - 18.0 g/dL 08/09/2020 6:00 [facility] HCT 29.6(L) 42.0 - 52.0 % 08/09/2020 6:00 [facility] MCV 99.3 78 - 100 fL 08/09/2020 6:00 [facility] MCH 35.6(H) 27 - 31 pg 08/09/2020 6:00 [facility] MCHC 35.8 32 - 37 g/dL 08/09/2020 6:00 [facility] RDW-CV - PMC 13.8 <14.7 % 08/09/2020 6:00 [facility] PLATELET COUNT - PMC 179 150 - 450 10 3/uL 08/09/2020 6:00 [facility] MPV 11.6 9.2 - 12.0 fL 08/09/2020 6:00 [facility] NEUTROPHILS % (AUTO) - PMC 84.2 % 08/09/2020 6:00 [facility] LYMPHOCYTES % (AUTO) - PMC 7.2 % 08/09/2020 6:00 [facility] MONOCYTES % (AUTO) - PMC 8.0 % 08/09/2020 6:00 [facility] EOSINOPHILS % (AUTO) - PMC 0.0 % 08/09/2020 6:00 [facility] BASOPHILS % (AUTO) - PMC 0.1 % 08/09/2020 6:00 [facility] Immature Granulocyte % (Auto) 0.5 % 08/09/2020 6:00 [facility] NUCLEATED RBC % (AUTO) - PMC 0.0 % 08/09/2020 6:00 [facility] NEUTROPHILS # (AUTO) - PMC 8.7(H) 1.5 - 6.6 10 3/uL 08/09/2020 6:00 [facility] LYMPHOCYTES # (AUTO) - PMC 0.7(L) 1.0 - 3.5 10 3/uL 08/09/2020 6:00 [facility] MONOCYTES # (AUTO) - PMC 0.8 <1.0 10 3/uL 08/09/2020 6:00 EDT [facility] EOSINOPHILS # (AUTO) - PMC 0.0 <0.7 10 3/uL 08/09/2020 6:00 EDT [facility] Absolute Immature Granulocyte 0.05 <0.06 10 3/uL 08/09/2020 6:00 EDT [facility] DIFFERENTIAL METHOD Auto Differential 08/09/2020 5:46 EDT [facility] 08/09/2020 5:35 EDT 08/09/2020 5:44 EDT Virginia Quintana MD PACKAGES & DNA PROBE ORDERABLES Performing Organization Address City/State/[facility] Co de Phone Number [facility] [address] [place] [address] * C DIFFICILE TOXIN PCR, F > 2 YRS - PMC (08/09/2020 3:24 EDT) 08/09/2020 3:24 EDT 08/10/2020 5:39 EDT Comment:KWASI Narrative [facility] - 08/10/2020 6:26 EDT ----- ------- ?? RUN DATE: 08/10/20 ? [facility]: [facility] *LIVE* ? PAGE 1 ? RUN TIME: 625 ?Specimen Inquiry ? ----- ------- ?? PATIENT: DAVID FARFAN ? ACCT: [id number] LOC: ??MS ? U: [id number] ? AGE/SX: 69/M ? ROOM: 138 ?RE08/09/20 ?? REG DR: ??Ester Valerio MD ? : ?1950 ?? BED: ??1 ?DIS: ? STATUS: ADM Astrid ?TLOC: ? ----- ------- ? SPEC #: [id number] ?ALEX: 08/09/20-323 ? STATUS: ??COMP ? REQ #: [id number] ?RECD: 08/10/20 ? SUBM DR: Jennifer Tyson [...] Quintana MD MICROBIOLOGY - GENER AL ORDERABLES [facility] [address] [place] [address] documented in this encounter Visit Diagnoses Not on filedocumented in this encounter Care Teams Brick Grader Relationship Specialty Start Date End Date Katia Stone, PABijalC [address] [place] [phone] PCP - General 05/02/17 documented as of this encounter
--- OUTSIDE RECORDS SUMMARY | 2023-12-22 18:13 | XMS_ITS | Encounter Summary ---
Author Organization [facility] Address [address] [place] [address] Care Team Providers Care Road Roller Operator Name Role Phone Katia Stone PA-C Primary Care Provider +1- [phone] Encounter Details Date Type Department Care Team (Late st Contact Info) Description 08/16/2020 Results Only [facility] [address] [place] [address] Junior Ray MD [address] [place] [address] Social History Tobacco Use Types [...] 137 136 - 145 mEq/L 08/16/2020 5:50 [facility] Potassium 3.5 3.5 - 5.1 mEq/L 08/16/2020 5:50 [facility] Chloride 103 96 - 107 mEq/L 08/16/2020 5:50 [facility] CO2 Total 28.1 21 - 32 mEq/L 08/16/2020 5:50 [facility] Anion Gap 5.9 mEq/L 08/16/2020 5:50 [facility] BUN 14 7 - 25 mg/dl 08/16/2020 5:50 [facility] Creatinine 0.57(L) 0.70 - 1.30 mg/dl 08/16/2020 5:50 [facility] Estimated GFR >60 >60 08/16/2020 5:50 [facility] Comment: EGFR UNITS: mL/min/1.73 m 2 CKD-EPI Equation used to calculate. Glucose 86 74 - 106 mg/dl 08/16/2020 5:50 [facility] Calcium 8.0(L) 8.5 - 10.1 mg/dl 08/16/2020 5:50 [facility] 08/16/2020 5:20 EDT 08/16/2020 5:29 EDT Junior Ray MD CHEMISTRY & BLOOD G ORDERABLES Performing Organization Address City/[facility]/ZIP Co de Phone Number [facility] [address] [place] [address] * (ABNORMAL) COMPLETE BLOOD COUNT (08/16/2020 5:20 EDT) Pathologist [facility] WBC 5.0 4.0 - 10.5 10 3/uL 08/16/2020 5:46 EDT [facility] RBC 2.65(L) 4.70 - 6.00 10 6/uL 08/16/2020 5:46 [facility] Hemoglobin 9.3(L) 13.5 - 18.0 g/dL 08/16/2020 5:46 [facility] HCT 27.3(L) 42.0 - 52.0 % 08/16/2020 5:46 [facility] MCV 103.0(H) 78 - 100 fL 08/16/2020 5:46 [facility] MCH 35.1(H) 27 - 31 pg 08/16/2020 5:46 [facility] MCHC 34.1 32 - 37 g/dL 08/16/2020 5:46 [facility] RDW-CV - PMC 15.1(H) <14.7 % 08/16/2020 5:46 [facility] PLATELET COUNT - PMC 202 150 - 450 10 3/uL 08/16/2020 5:46 [facility] MPV 10.1 9.2 - 12.0 fL 08/16/2020 5:46 [facility] 08/16/2020 5:20 EDT 08/16/2020 5:29 EDT Junior Ray MD HEMATOLOGY & PF4 OR DERABLES [facility] [address] [place] [address] documented in this encounter Visit Diagnoses Not on filedocumented in this encounter Care Teams Road Roller Operator Relationship Specialty Start Date End Date Katia Stone, PABijalC [address] [place] [phone] PCP - General 05/02/17 documented as of this encounter
--- OUTSIDE RECORDS SUMMARY | 2023-12-22 18:13 | XMS_ITS | Encounter Summary ---
Author Organization [facility] Address [address] [place] [address] Care Team Providers Care Time Cycle Operator Name Role Phone Katia Stone PA-C Primary Care Provider +1- [phone] Encounter Details Date Type Department Care Team (Late st Contact Info) Description 08/08/2020 Results Only Imaging [facility] Radiology Results [address] [place] [phone] Tony Christy MD [address] [place] [address] Social History Tobacco Use Types [...] 6 EDT Narrative 08/08/2020 15:36 EDT [facility] ?[address] ?[place] [address] ?Diagnostic Imaging Report ? Signed ? Patient Name:DAVID FARFAN ? Date of :1950 ?MR Number:[id number] ? Age:69 ?Sex:M ? Category: CR ?Date [...] questions regarding this report, please contact the [facility] at [phone] ? Dictated by: Temo Son MD ?D/ 15 ?? 36 ?? Transcribed by: SSOMROV ?D/T: ? E-Signed by: Temo Son MD ?D/ 19 ?? 38 ?? Procedure Note Temo Son MD - 08/08/2020 [facility] [address] [address] Diagnostic Imaging Report Signed Patient Name:DAVID FARFAN FAccount Number:[id number] Date of :1950 MRNumber:[id number] Age:69 Sex:M Category: CR Date ofExam:08/08/20 Procedure: CR: Chest; Frontal/LAT viewsAccession: [id number] Ordering Physician: Tony Christy MD Patient [...] questions regarding this report, please contact the [facility] at [phone] Dictated by: Temo Son MDD/ 15 36 Transcribed by: SSOMROVD/T: E-Signed by: Temo Son MDD/ 19 38 Tony Christy MD IMG DIAGNOSTIC DAWIT GING ORDERABLES * CT ABDOMEN PELVIS W CONTRAST (08/08/2020 15:36 EDT) Anatomical Region Laterality Modality Body, Abdomen, Pelvis, Abdomen and Pelvis Computed Tomography 08/08/2020 15:3 6 EDT Narrative 08/08/2020 15:36 EDT ?[facility]: [facility] ?[address] ?[place], [place] [address] ?Diagnostic Imaging Report ? Signed ? Patient Name:ADOLPH,DAVID Martinez ? Date of :1950 ?MR Number:[id number] ? Age:69 ?Sex:M ? Category: CT ?Date [...] please contact the [facility] at [phone] ? Dictated by: Temo Son MD ?D/ 15 ?? 36 ?? Transcribed by: DEBRA ?D/T: ? E-Signed by: Temo Son MD ?D/ 19 ?? 36 ?? Procedure Note Temo Son MD - 08/08/2020 [facility]: [address] [address] Diagnostic Imaging Report Signed Patient Name:DAVID FARFAN FAccount Number:[id number] Date of :1950 MRNumber:[id number] Age:69 Sex:M Category: CT Date ofExam:08/08/20 Procedure: CT: Abd Pelvis; wit cntrstAccession: [id number] Ordering Physician: Tony Christy MD Patient [...] questions regarding this report, please contact the [facility] at [phone] Dictated by: Temo Son MDD/ 15 36 Transcribed by: PRADEEPVD/T: E-Signed by: Temo Son MDD/ 19 36 Tony Christy MD IMG CT ORDERABLES documented in this encounter Visit Diagnoses Not on filedocumented in this encounter Additional Health Concerns Infection Onset Date Last Indicated Resolved Time RSV 01/31/2022 01/31/2022 02/10/2022 22:1 5 EST documented as of this encounter Care Teams Time Cycle Operator Relationship Specialty Start Date End Date Katia Stone, PA-C [address] [place] [phone] PCP - General 05/02/17 documented as of this encounter
--- OUTSIDE RECORDS SUMMARY | 2023-12-22 18:13 | XMS_ITS | Encounter Summary ---
Author Organization [facility] Address [address] [place] [address] Care Team Providers Care Pro Shop Attendant Name Role Phone Katia Stone PA-C Primary Care Provider +1- [phone] Reason for Visit * Reason Onset Date Comments Other 06/21/2020 patient wants to cancel surgery Encounter Details Date Type Department Care Team (Late st Contact Info) Description 06/21/2020 Telephone [facility] Cardiothoracic Surgery - [facility] [address] [place] [address] Ja Browne MD [address] [place], [place] [phone] Other (patient wants to cancel surgery) Social [...] with (Whitney). Pt was called by his Electronics Recycler on 06/21 x 2 and finally Maru Villalobos the Electronics Recycler sent the State Police to his house per Maru to do a welfare check as he doesn't follow instructions or return calls per Maru. He didn't go fora covid test and the ride was set up for him by Maru Electronics Recycler and he cancelled it. He states he [...] Melania Dumas - 06/21/2020 1350 EDT Nila (Sequins Stringer) from [facility] calling to advise that patient wants to cancel surgery on Friday06/26/2020 as he believes he has pneumonia. Per Nila, patient has not been seen by anyone and declinedcalling ambulance to take him to ED. documented in this encounter Plan of Treatment Not on file documented as of this encounter Visit Diagnoses Not on filedocumented in this encounter Care Teams Pro Shop Attendant Relationship Specialty Start Date End Date Katia Stone, MINGO [address] [place] [phone] PCP - General 05/02/17 documented as of this encounter
--- OUTSIDE RECORDS SUMMARY | 2023-12-22 18:13 | XMS_ITS | Encounter Summary ---
Author Organization [facility] Address [address] [place] [address] Care Team Providers Care Field Hauler Name Role Phone Katia Stone PA-C Primary Care Provider +1- [phone] Encounter Details Date Type Department Care Team (Late st Contact Info) Description 08/13/[address] [facility] Pathology & Laboratory Medicine - [address] [address] Outr Resulting Lab, Provider Social History Tobacco [...] Salmonella PCR Negative Negative 08/13/2020 19:51 EDT [facility] Shigella/Enteroin vasive E. coli Negative Negative 08/13/2020 19:51 EDT [facility] HN LAB CAMPYLOBACTER PCR Negative Negative 08/13/2020 19:51 EDT [facility] Shiga Toxin PCR Negative Negative 19:51 EDT [facility] Feces SPECIMEN FROM RECTUM / Unknown 08/11/2020 14:50 EDT 08/13/2020 15:22 EDT Provider Outr Resulting Lab MICROBIOLOGY - GENERAL ORDERABLES [facility] [address] [place] [address] documented in this encounter Visit Diagnoses Not on filedocumented in this encounter Additional Health Concerns Infection Onset Date Last Indicated Resolved Time RSV 01/31/2022 01/31/2022 02/10/2022 22:1 5 EST documented as of this encounter Care Teams Field Hauler Relationship Specialty Start Date End Date Katia Stone, PABijalC [address] [place] [phone] PCP - General 05/02/17 documented as of this encounter
--- OUTSIDE RECORDS SUMMARY | 2023-12-22 18:13 | XMS_ITS | Encounter Summary ---
Author Organization [facility] Address [address] [place] [address] Care Team Providers Care Flight Teacher Name Role Phone Katia Stone PA-C Primary Care Provider +1- [phone] Encounter Details Date Type Department Care Team (Late st Contact Info) Description 08/22/2020 Results Only [facility] [phone] Rowan Abad, TAIWO [address] [place] [phone] Social History Tobacco Use Types Packs/Day [...] * MAGNESIUM (08/22/2020 5:30 EDT) Pathologist [facility] Magnesium 1.8 1.8 - 2.4 mg/dl 08/22/2020 6:03 T [facility] 08/22/2020 5:30 EDT 08/22/2020 5:39 EDT Rowan Abad NP CHEMISTRY & BLOOD GA S ORDERABLES [facility] [address] [place] [address] * (ABNORMAL) BASIC METABOLIC PANEL (BMP) (08/22/2020 5:30 EDT) Sodium 133(L) 136 - 145 mEq/L 08/22/2020 6:03 EDT [facility] Potassium 3.7 [...] BLOOD GA S ORDERABLES Performing Organization Address City/State/[facility] Co de Phone Number [facility] [address] [place] [address] * (ABNORMAL) COMPLETE BLOOD COUNT AND DIFFERENTIAL [...] 5:30 EDT 08/22/2020 5:39 EDT Rowan Abad SUSTAINMENT LOGISTICS ANALYST PACKAGES & DNA PROBE ORDERABLES [facility] [address] [place] [address] documented in this encounter Visit Diagnoses Not on filedocumented in this encounter Care Teams Flight Teacher Relationship Specialty Start Date End Date Katia Stone, PABijalC [address] [place] [phone] PCP - General 05/02/17 documented as of this encounter
--- OUTSIDE RECORDS SUMMARY | 2023-12-22 18:13 | XMS_ITS | Encounter Summary ---
Author Organization [facility] Address [address] [place] [address] Care Team Providers Care Certified Fraud Examiner Name Role Phone Katia Stone PA-C Primary Care Provider +1- [phone] Encounter Details Date Type Department Care Team (Late st Contact Info) Description 08/20/2020 Results Only [facility] [address] [place] [address] Junior Ray MD [address] [place] [address] Social History Tobacco Use Types [...] 1.8 - 2.4 mg/dl 08/20/2020 13:10 EDT [facility] 08/20/2020 6:50 EDT 08/20/2020 6:59 EDT Junior Ray MD CHEMISTRY & BLOOD G ORDERABLES [facility] [address] [place] [address] * (ABNORMAL) BASIC METABOLIC PANEL (BMP) (08/20/2020 6:50 EDT) Sodium 134(L) 136 - 145 mEq/L 08/20/2020 7:27 EDT [facility] Potassium 3.6 3.5 - 5.1 mEq/L 08/20/2020 7:27 [facility] Chloride 100 96 - 107 mEq/L 08/20/2020 7:27 EDT [facility] CO2 Total 28.7 21 - 32 mEq/L 08/20/2020 7:27 T [facility] Anion Gap 5.3 mEq/L 08/20/2020 7:27 [facility] BUN 7 7 - 25 mg/dl 08/20/2020 7:27 [facility] Creatinine 0.48(L) 0.70 - 1.30 mg/dl 08/20/2020 7:27 [facility] Estimated GFR >60 >60 08/20/2020 7:27 [facility] Comment: EGFR UNITS: mL/min/1.73 m 2 CKD-EPI Equation used to calculate. Glucose 91 74 - 106 mg/dl 08/20/2020 7:27 [facility] Calcium 8.3(L) 8.5 - 10.1 mg/dl 08/20/2020 7:27 [facility] 08/20/2020 6:50 EDT 08/20/2020 6:59 EDT Junior Ray MD CHEMISTRY & BLOOD G ORDERABLES [facility] [address] [place] [address] * (ABNORMAL) COMPLETE BLOOD COUNT (08/20/2020 6:50 EDT) WBC 5.8 4.0 - 10.5 10 3/uL 08/20/2020 7:07 [facility] RBC 2.96(L) 4.70 - 6.00 10 6/uL 08/20/2020 7:07 [facility] Hemoglobin 10.5(L) 13.5 - 18.0 g/dL 08/20/2020 7:07 [facility] HCT 29.8(L) 42.0 - 52.0 % 08/20/2020 7:07 [facility] MCV 100.7(H) 78 - 100 fL 08/20/2020 7:07 [facility] MCH 35.5(H) 27 - 31 pg 08/20/2020 7:07 [facility] MCHC 35.2 32 - 37 g/dL 08/20/2020 7:07 [facility] RDW-CV - PMC 14.7 <14.7 % 08/20/2020 7:07 EDT [facility] PLATELET COUNT - PMC 253 150 - 450 10 3/uL 08/20/2020 7:07 T [facility] MPV 10.1 9.2 - 12.0 fL 08/20/2020 7:07 EDT [facility] 08/20/2020 6:50 EDT 08/20/2020 6:59 EDT Junior Ray MD HEMATOLOGY & PF4 OR DERABLES [facility] [address] [place] [address] documented in this encounter Visit Diagnoses Not on filedocumented in this encounter Care Teams Certified Fraud Examiner Relationship Specialty Start Date End Date Katia Stone, PAiBjalC [address] [place] [phone] PCP - General 05/02/17 documented as of this encounter
--- OUTSIDE RECORDS SUMMARY | 2023-12-22 18:13 | XMS_ITS | Encounter Summary ---
Author Organization [facility] Address [address] [place] [address] Care Team Providers Care Lithographing Machine Operator Name Role Phone Katia Stone PA-C Primary Care Provider +1- [phone] Encounter Details Date Type Department Care Team (Late st Contact Info) Description 08/08/[address] [facility] [address] [place] [address] Tony Christy MD [address] [place] [address] Social History Tobacco Use Types [...] 4.0 - 10.5 10 3/uL 08/08/2020 20:51 [facility] RBC 3.15(L) 4.70 - 6.00 10 6/uL 08/08/2020 20:51 [facility] Hemoglobin 11.3(L) 13.5 - 18.0 g/dL 08/08/2020 20:51 [facility] HCT 31.4(L) 42.0 - 52.0 % 08/08/2020 20:51 [facility] MCV 99.7 78 - 100 fL 08/08/2020 20:51 [facility] MCH 35.9(H) 27 - 31 pg 08/08/2020 20:51 [facility] MCHC 36.0 32 - 37 g/dL 08/08/2020 20:51 [facility] RDW-CV - PMC 13.8 <14.7 % 08/08/2020 20:51 [facility] PLATELET COUNT - PMC 199 150 - 450 10 3/uL 08/08/2020 20:51 [facility] MPV 11.2 9.2 - 12.0 fL 08/08/2020 20:51 [facility] NEUTROPHILS % (AUTO) - PMC 81.3 % 08/08/2020 20:51 [facility] LYMPHOCYTES % (AUTO) - PMC 8.6 % 08/08/2020 20:51 [facility] MONOCYTES % (AUTO) - PMC 9.5 % 08/08/2020 20:51 [facility] EOSINOPHILS % (AUTO) - PMC 0.0 % 08/08/2020 20:51 [facility] BASOPHILS % (AUTO) - PMC 0.1 % 08/08/2020 20:51 [facility] Immature Granulocyte % (Auto) 0.5 % 08/08/2020 20:51 [facility] NUCLEATED RBC % (AUTO) - PMC 0.0 % 08/08/2020 20:51 [facility] NEUTROPHILS # (AUTO) - PMC 6.1 1.5 - 6.6 10 3/uL 08/08/2020 20:51 [facility] LYMPHOCYTES # (AUTO) - PMC 0.7(L) 1.0 - 3.5 10 3/uL 08/08/2020 20:51 [facility] MONOCYTES # (AUTO) - PMC 0.7 <1.0 10 3/uL 08/08/2020 20:51 [facility] EOSINOPHILS # (AUTO) - PMC 0.0 <0.7 10 3/uL 08/08/2020 20:51 [facility] Absolute Immature Granulocyte 0.04 <0.06 10 3/uL 08/08/2020 20:51 [facility] DIFFERENTIAL METHOD Auto Differential 08/08/2020 20:48 [facility] 08/08/2020 20:4 2 EDT 08/08/2020 20:46 EDT Tony Christy MD PACKAGES & DNA PRO BE ORDERABLES [facility] [address] [place] [address] * CORONAVIRUS COVID-19 PCR ([facility]) (08/08/2020 17:07 EDT) 08/08/2020 17:0 7 EDT 08/08/2020 17:11 EDT Comment:SWAB Narrative [facility] - 08/08/2020 18:36 EDT ----- ------- ?? RUN DATE: 08/08/20 ? [facility]: [facility] *LIVE* ? PAGE 1 ? RUN TIME: 1837 ?Specimen Inquiry ? ----- ------- ?? PATIENT: DAVID FARFAN ? ACCT: [id number] LOC: ??ED ? U: [id number] ? AGE/SX: 69/M ? ROOM: ?RE08/08/20 ?? REG DR: ??Tony Christy MD ?: ?1950 ?? BED: ? DIS: ? STATUS: REG ER ? TLOC: ? ----- ------- ? SPEC #: [id number] ?ALEX: 08/08/20 ? STATUS: ??COMP ? REQ #: [id number] ?RECD: 08/08/20 ? SUBM DR: Tony Christy [...] terminated or revoked sooner. ?Testing performed on [employer] instrument ? ----- ------- ? END OF REPORT ? Tony Christy MD MICROBIOLOGY - GEN ERAL ORDERABLES Performing Organization Address [facility] Co de Phone Number [facility] [address] [place] [address] * (ABNORMAL) BNP - PMC (08/08/2020 16:47 EDT) [facility] B-TYPE NATRIURETIC PEPTIDE - PMC 398(H) <100 pg/mL 08/08/2020 17:53 EDT [facility] 08/08/2020 16:4 7 EDT 08/08/2020 16:52 EDT Tony Christy MD CHEMISTRY & BLOOD GAS ORDERABLES Performing Organization Address [facility] de Phone Number [facility] [address] [place] [address] * TROPONIN I (08/08/2020 16:47 EDT) [facility] Troponin I (ng/mL) <0.050 0 - 0.056 ng/ml 08/08/2020 17:36 EDT [facility] Comment: Interpretation: The cutoff for [...] GAS ORDERABLES Performing Organization Address [facility] Co de Phone Number [facility] [address] [place] [address] * (ABNORMAL) COMPREHENSIVE METABOLIC PANEL (CMP) (08/08/2020 16:47 EDT) [facility] Sodium 125(L) 136 - 145 mEq/L 08/08/2020 17:29 [facility] Potassium 2.9(L) 3.5 - 5.1 mEq/L 08/08/2020 17:29 [facility] Chloride 85(L) 96 - 107 mEq/L 08/08/2020 17:29 [facility] CO2 Total 26.2 21 - 32 mEq/L 08/08/2020 17:29 [facility] Anion Gap 13.8 mEq/L 08/08/2020 17:29 [facility] BUN 8 7 - 25 mg/dl 08/08/2020 17:29 [facility] Creatinine 0.67(L) 0.70 - 1.30 mg/dl 08/08/2020 17:29 [facility] Estimated GFR >60 >60 08/08/2020 17:29 [facility] Comment: EGFR UNITS: mL/min/1.73 m 2 CKD-EPI Equation used to calculate. Glucose 101 74 - 106 mg/dl 08/08/2020 17:29 [facility] Calcium 8.5 8.5 - 10.1 mg/dl 08/08/2020 17:29 [facility] CALCIUM,CORRECTE D - PMC 9.3 8.5 - 10.5 mg/dl 08/08/2020 17:29 [facility] BILIRUBIN - PMC 1.60(H) 0.00 - 1.00 mg/dl 08/08/2020 17:29 [facility] AST 90(H) 15 - 37 U/L 08/08/2020 17:29 [facility] ALT 62 16 - 63 U/L 08/08/2020 17:29 [facility] Alkaline Phosphatase 133(H) 46 - 116 U/L 08/08/2020 17:29 [facility] Total Protein 7.6 6.4 - 8.2 g/dl 08/08/2020 17:29 [facility] Albumin 3.0(L) 3.4 - 5.0 g/dl 08/08/2020 17:29 [facility] GLOBULIN - PMC 4.6 g/dl 08/08/2020 17:29 [facility] ALBUMIN/GLOBULIN RATIO - PMC 0.6 08/08/2020 17:29 [facility] 08/08/2020 16:4 7 EDT 08/08/2020 16:52 EDT Tony Christy MD CHEMISTRY & BLOOD GAS ORDERABLES [facility] [address] [place] [address] * (ABNORMAL) COMPLETE BLOOD COUNT AND DIFFERENTIAL (08/08/2020 16:47 EDT) WBC 7.3 4.0 - 10.5 10 3/uL 08/08/2020 17:14 [facility] RBC 3.32(L) 4.70 - 6.00 10 6/uL 08/08/2020 17:14 [facility] Hemoglobin 11.8(L) 13.5 - 18.0 g/dL 08/08/2020 17:14 [facility] HCT 32.9(L) 42.0 - 52.0 % 08/08/2020 17:14 [facility] MCV 99.1 78 - 100 fL 08/08/2020 17:14 [facility] MCH 35.5(H) 27 - 31 pg 08/08/2020 17:14 [facility] MCHC 35.9 32 - 37 g/dL 08/08/2020 17:14 [facility] RDW-CV - PMC 13.7 <14.7 % 08/08/2020 17:14 [facility] PLATELET COUNT - PMC 209 150 - 450 10 3/uL 08/08/2020 17:14 [facility] MPV 11.4 9.2 - 12.0 fL 08/08/2020 17:14 [facility] NEUTROPHILS % (AUTO) - PMC 81.9 % 08/08/2020 17:14 [facility] LYMPHOCYTES % (AUTO) - PMC 9.1 % 08/08/2020 17:14 [facility] MONOCYTES % (AUTO) - PMC 8.3 % 08/08/2020 17:14 [facility] EOSINOPHILS % (AUTO) - PMC 0.0 % 08/08/2020 17:14 [facility] BASOPHILS % (AUTO) - PMC 0.1 % 08/08/2020 17:14 [facility] Immature Granulocyte % (Auto) 0.6 % 08/08/2020 17:14 [facility] NUCLEATED RBC % (AUTO) - PMC 0.0 % 08/08/2020 17:14 [facility] NEUTROPHILS # (AUTO) - PMC 5.9 1.5 - 6.6 10 3/uL 08/08/2020 17:14 [facility] LYMPHOCYTES # (AUTO) - PMC 0.7(L) 1.0 - 3.5 10 3/uL 08/08/2020 17:14 [facility] MONOCYTES # (AUTO) - PMC 0.6 <1.0 10 3/uL 08/08/2020 17:14 [facility] EOSINOPHILS # (AUTO) - PMC 0.0 <0.7 10 3/uL 08/08/2020 17:14 [facility] Absolute Immature Granulocyte 0.04 <0.06 10 3/uL 08/08/2020 17:14 [facility] DIFFERENTIAL METHOD Auto Differential 08/08/2020 16:54 [facility] 08/08/2020 16:4 7 EDT 08/08/2020 16:52 EDT Tony Christy MD PACKAGES & DNA PRO BE ORDERABLES [facility] [address] [place] [address] documented in this encounter Visit Diagnoses Not on filedocumented in this encounter 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
--- OUTSIDE RECORDS SUMMARY | 2023-12-22 18:13 | XMS_ITS | Encounter Summary ---
Author Organization Health system Address [address] [place] [address] Care Team Providers Care Signs And Displays Sales Representative Name Role Phone Katia Stone PA-C Primary Care Provider +1- [phone] Reason for Visit * Reason Onset Date Comments Confirmation 06/19/2020 Encounter Details Date Type Department Care Team (Late st Contact Info) Description 06/19/2020 Telephone [facility] Cardiothoracic Surgery - [address] [address] Cat Sutherland RN Confirmation Social History Tobacco [...] the patient to call Maru Villalobos his Kier Boiler as she is arranging his rides for his COVID test and Surgery as well as his instructions for surgery. I also left Maru a message aswell. * Telephone Encounter - Alma Dhillon - 06/20/2020 0938 EDT FYI---Patient's Microfilming Document Preparer calls to say she is not able [...] well to Maru Villalobos RN the patient's Kier Boiler at PCP office, which she did receive. Maru had stated previously that she is arranging a ride for the patient to his COVID test 3-4 days prior to surgery and also arranging ride to [facility] on the day of surgery and will assist in helping patient understand instructions. I have called Maru Villalobos RN and left her a message to call me back on 06/20. I will also call the patient on 06/20 New phone numbers for Maru: [phone] EXT#4, EXT#[phone] Or direct line = [phone] documented in this encounter Plan of Treatment Not on file documented as of this encounter Visit Diagnoses Not on filedocumented in this encounter Care Teams Signs And Displays Sales Representative Relationship Specialty Start Date End Date Katia Stone, PABijalC [address] [place] [phone] PCP - General 05/02/17 documented as of this encounter
--- OUTSIDE RECORDS SUMMARY | 2023-12-22 18:13 | XMS_ITS | Encounter Summary ---
Author Organization [facility] Address [address] [place] [address] Care Team Providers Care Garage Attendant Name Role Phone Katia Stone PA-C Primary Care Provider +1- [phone] Encounter Details Date Type Department Care Team (Late st Contact Info) Description 08/10/2020 Results Only [facility] [address] [place] [address] Ester Valerio MD [address] [facility] [address] [place] [phone] Social History Tobacco Use Types Packs/Day Years [...] 1.8 - 2.4 mg/dl 08/10/2020 6:13 EDT [facility] 08/10/2020 5:35 EDT 08/10/2020 5:42 EDT Ester Valerio MD CHEMISTRY & BLOO D GAS ORDERABLES [facility] [address] [place] [address] * (ABNORMAL) BASIC METABOLIC PANEL (BMP) (08/10/2020 5:35 EDT) Sodium 133(L) 136 - 145 mEq/L 08/10/2020 6:13 EDT [facility] Potassium 3.4(L) 3.5 - 5.1 mEq/L 08/10/2020 6:13 EDT [facility] Chloride 98 96 - 107 mEq/L 08/10/2020 6:13 [facility] CO2 Total 27.2 21 - 32 mEq/L 08/10/2020 6:13 [facility] Anion Gap 7.8 mEq/L 08/10/2020 6:13 [facility] BUN 6(L) 7 - 25 mg/dl 08/10/2020 6:13 [facility] Creatinine 0.54(L) 0.70 - 1.30 mg/dl 08/10/2020 6:13 [facility] Estimated GFR >60 >60 08/10/2020 6:13 [facility] Comment: EGFR UNITS: mL/min/1.73 m 2 CKD-EPI Equation used to calculate. Glucose 86 74 - 106 mg/dl 08/10/2020 6:13 [facility] Calcium 7.7(L) 8.5 - 10.1 mg/dl 08/10/2020 6:13 [facility] 08/10/2020 5:35 EDT 08/10/2020 5:42 EDT Ester Valerio MD CHEMISTRY & BLOO D GAS ORDERABLES [facility] [address] [place] [address] * (ABNORMAL) HEPATIC FUNCTION PANEL (ALB,ALK PHOS,ALT,AST,DBIL,TOT BOSSMAN,TOT PROT) (08/10/2020 5:35 EDT) BILIRUBIN - PMC 0.90 0.00 - 1.00 mg/dl 08/10/2020 6:13 [facility] DIRECT BILIRUBIN - PMC 0.50(H) 0.00 - 0.30 mg/dl 08/10/2020 6:13 [facility] INDIRECT BILIRUBIN - PMC 0.40 0.00 - 0.80 mg/dl 08/10/2020 6:13 [facility] AST 50(H) 15 - 37 U/L 08/10/2020 6:13 [facility] ALT 37 16 - 63 U/L 08/10/2020 6:13 [facility] Alkaline Phosphatase 97 46 - 116 U/L 08/10/2020 6:13 [facility] Total Protein 6.1(L) 6.4 - 8.2 g/dl 08/10/2020 6:13 [facility] Albumin 2.3(L) 3.4 - 5.0 g/dl 08/10/2020 6:13 [facility] GLOBULIN - PMC 3.8 g/dl 08/10/2020 6:13 [facility] ALBUMIN/GLOBULIN RATIO - PMC 0.6 08/10/2020 6:13 [facility] 08/10/2020 5:35 EDT 08/10/2020 5:42 EDT Ester Valerio MD CHEMISTRY & BLOO D GAS ORDERABLES Performing Organization Address City/State/[facility] Co de Phone Number [facility] [address] [place] [address] * (ABNORMAL) COMPLETE BLOOD COUNT AND DIFFERENTIAL (08/10/2020 5:35 EDT) WBC 7.0 4.0 - 10.5 10 3/uL 08/10/2020 5:58 [facility] RBC 2.72(L) 4.70 - 6.00 10 6/uL 08/10/2020 5:58 [facility] Hemoglobin 9.7(L) 13.5 - 18.0 g/dL 08/10/2020 5:58 [facility] HCT 27.9(L) 42.0 - 52.0 % 08/10/2020 5:58 [facility] MCV 102.6(H) 78 - 100 fL 08/10/2020 5:58 [facility] MCH 35.7(H) 27 - 31 pg 08/10/2020 5:58 [facility] MCHC 34.8 32 - 37 g/dL 08/10/2020 5:58 [facility] RDW-CV - PMC 14.7 <14.7 % 08/10/2020 5:58 [facility] PLATELET COUNT - PMC 180 150 - 450 10 3/uL 08/10/2020 5:58 [facility] MPV 11.0 9.2 - 12.0 fL 08/10/2020 5:58 [facility] NEUTROPHILS % (AUTO) - PMC 65.5 % 08/10/2020 5:58 [facility] LYMPHOCYTES % (AUTO) - PMC 17.5 % 08/10/2020 5:58 [facility] MONOCYTES % (AUTO) - PMC 13.9 % 08/10/2020 5:58 [facility] EOSINOPHILS % (AUTO) - PMC 2.1 % 08/10/2020 5:58 [facility] BASOPHILS % (AUTO) - PMC 0.4 % 08/10/2020 5:58 [facility] Immature Granulocyte % (Auto) 0.6 % 08/10/2020 5:58 [facility] NUCLEATED RBC % (AUTO) - PMC 0.0 % 08/10/2020 5:58 [facility] NEUTROPHILS # (AUTO) - PMC 4.6 1.5 - 6.6 10 3/uL 08/10/2020 5:58 [facility] LYMPHOCYTES # (AUTO) - PMC 1.2 1.0 - 3.5 10 3/uL 08/10/2020 5:58 [facility] MONOCYTES # (AUTO) - PMC 1.0 <1.0 10 3/uL 08/10/2020 5:58 [facility] EOSINOPHILS # (AUTO) - PMC 0.2 <0.7 10 3/uL 08/10/2020 5:58 [facility] Absolute Immature Granulocyte 0.04 <0.06 10 3/uL 08/10/2020 5:58 [facility] DIFFERENTIAL METHOD Auto Differential 08/10/2020 5:44 [facility] 08/10/2020 5:35 EDT 08/10/2020 5:43 EDT Ester Valerio MD PACKAGES & DNA P ANETA ORDERABLES [facility] [address] [place] [address] documented in this encounter Visit Diagnoses Not on filedocumented in this encounter Care Teams Garage Attendant Relationship Specialty Start Date End Date Katia Stone, PABijalC [address] [place] [phone] PCP - General 05/02/17 documented as of this encounter
--- OUTSIDE RECORDS SUMMARY | 2023-12-22 18:13 | XMS_ITS | Encounter Summary ---
Author Organization [facility] Address [address] [place] [address] Care Team Providers Care Laser Machine Operator Name Role Phone Katia Stone PA-C Primary Care Provider +1- [phone] Encounter Details Date Type Department Care Team (Late st Contact Info) Description 08/20/2020 Results Only [facility] [address] [place] [address] Marilyn Hood MD [address] [place] [address] Social History Tobacco Use Types [...] Organization Address City/State/[place] Co de Phone Number [facility] [address] [place] [address] documented in this encounter Visit Diagnoses Not on filedocumented in this encounter Care Teams Laser Machine Operator Relationship Specialty Start Date End Date Katia Stone, PABijalC [address] [facility] [place] [phone] PCP - General 05/02/17 documented as of this encounter
--- OUTSIDE RECORDS SUMMARY | 2023-12-22 18:13 | XMS_ITS | Encounter Summary ---
Author Organization [facility] Address [address] [place] [address] Care Team Providers Care Print Shop Manager Name Role Phone Katia Stone PA-C Primary Care Provider +1- [phone] Reason for Visit * Reason Onset Date Comments Appointment Related 06/22/2020 Encounter Details Date Type Department Care Team (Late st Contact Info) Description 06/22/2020 Telephone [facility] Cardiothoracic Surgery - [facility] [address] [place] [address] Ja Browne MD [address] [place] [phone] Appointment Related Social History Tobacco Use [...] on filedocumented in this encounter Care Teams Print Shop Manager Relationship Specialty Start Date End Date Katia Stone, BELLAC [address] [place] [phone] PCP - General 05/02/17 documented as of this encounter
--- OUTSIDE RECORDS SUMMARY | 2023-12-22 18:13 | XMS_ITS | Encounter Summary ---
Author Organization [facility] Address [address] [place] [address] Care Team Providers Care Bowling Alley Manager Name Role Phone Katia Stone PA-C Primary Care Provider +1- [phone] Reason for Visit * Reason Onset Date Comments Other 06/07/[address] Surgery RN Other 06/08/2020 mailed pre-op in structions to patient Encounter Details Date Type Department Care Team (Late st Contact Info) Description 06/07/2020 Telephone [facility] Cardiothoracic Surgery - Main [place] [address] [place] [address] Ja Browne MD [address] [place] [phone] Other (questions for CT Surgery RN); [...] EDT Pre-op instructions mailed to patient at: [address] [place] [id number] Address updated in [facility]. * Telephone Encounter - Cta Sutherland RN - 06/07/2020 1526 EDT Called and left message for Maru Villalobos RN at [place] PCP Wheel And Axle Inspector to get correct address (mailing address) for patient and then have changed in Registration as he doesn't live in [place] anymore. She was going to call us [...] the Division of Cardiothoracic Surgery at the [facility]. We look forward to making [...] located near the Main Entrance of the [facility] at the [facility]. Prior to surgery, you will be scheduled for an anesthesia pre-screen telephone call with the Pre-Operative Department ??? Your telephone call has been scheduled for: To Be Announced between To Be Announced and To Be Announced ??? If you do not receive an appointment for the pre-screen call within two days of this appointment, please contact our office at [phone]. We have included a local lodging list [...] days prior to your surgery. Stop Saw [place] 14 days prior to surgery. ??? Acetaminophen [...] CHANGED, CALL OUR OFFICE RIGHT AWAY AT [phone]) ??? Continue to take all of your [...] clothing. ??? Do not wear any nail bulgarian, makeup, powder, lotion, deodorant or jewelry of [...] timely results. The Patient Access Center at [facility] will contact you with an appointment [...] AN APPOINTMENT CONTACT THE PATIENT ACCESS CENTERAT [phone]. ??? While waiting for your surgery, you [...] on Level 3 (street level of the [facility]) for this. Following check-in, you will have a chest x-ray done. Following thechest x-ray proceed to the Surgeon's office on Level 5 [facility] Surgery Outpatient office. Note: If for [...] listed below. The Division of Cardiothoracic Surgery [address] [place] [address] (Toll Free) MD Geovanni Toure MD Marek Polomsky, MD Chris Rokkas, MD /josh & ep 03/2020 * Telephone Encounter - Cat Sutherland RN - 06/07/[address] Surgery Up[place] Maru Villalobos, mail sorting supervisor at [facility] [phone] states patient's son and and is not on Adv Directive now. Questions call Maru Villalobos. Pre-Op Instructions mailed to patient and faxed to Maru [phone]. She will review with the patient and I will as well. Check in time for surgery on 06/26 has not been confirmed yet per our Tire Stripper. Maru will set up COVID test as he needs a jukebox route driver and he will also need a ride to [place] for surgery which she will arrange. * Telephone Encounter - Melania Dumas - 06/07/2020 1013 EDT Maru from [place] calling with questions for CT Surgery RN. Requesting return call to [phone], extension [phone]. documented in this encounter Plan of Treatment Not on file documented as of this encounter Visit Diagnoses Diagnosis Encounter for preoperative screening laboratory testing for COVID-19 virus- Primary documented in this encounter Care Teams Bowling Alley Manager Relationship Specialty Start Date End Date Katia Stone, PABijalC [address] [place] [phone] PCP - General 05/02/17 documented as of this encounter
--- OUTSIDE RECORDS SUMMARY | 2023-12-22 18:13 | XMS_ITS | Encounter Summary ---
Author Organization [facility] Address [address] [place] [address] Care Team Providers Care Intern Product Marketing Manager Name Role Phone Katia Stone PA-C Primary Care Provider +1- [phone] Reason for Visit * Reason Onset Date Comments Appointment Related 06/16/2020 Encounter Details Date Type Department Care Team (Late st Contact Info) Description 06/16/2020 Telephone [facility] Cardiothoracic Surgery - [address] [address] Ghazala Sutherland RN Appointment Related Social History [...] encounter Miscellaneous Notes * Telephone Encounter - Ghzaala Sutherland RN - 06/16/[address] Surgery Update Message left for pt that the Pre-Op Center will call him on Monday 06/19 between 4 - 4:45 PM. I alsoleft him a message to be sure and connect with his Client Support Administrator at PCP office to get his COVID test3-4 days prior to surgery. Surgery is on 06/26. GHAZALA SUTHERLAND RN documented in this encounter Plan of Treatment Not on file documented as of this encounter Visit Diagnoses Not on filedocumented in this encounter Care Teams Intern Product Marketing Manager Relationship Specialty Start Date End Date Katia Stone, PABijalC [address] [place] [address] PCP - General 05/02/17 documented as of this encounter
--- OUTSIDE RECORDS SUMMARY | 2023-12-22 18:13 | XMS_ITS | Encounter Summary ---
Author Organization [facility] Address [address] [place] [address] Care Team Providers Care Test Engineer Name Role Phone Katia Stone PA-C Primary Care Provider +1- [phone] Encounter Details Date Type Department Care Team (Latest Contact Info) Description 06/19/2020 16:00 EDT - 06/19/2020 23:59 EDT Hospital Encounter [facility] Pre-Surgical Testing [address] [place] [address] Discharge Disposition: Home or Self Care Social [...] hospital - to be organized by his caser shoe parts Nila Villalobos. Pt refused to listen to instructions for surgery states I am waiting for the paper work that tells me what meds to take. This RN spoke with Cat Sutherland regional recruiter to discuss above. Cat to call pt tomorrow to confirm informations on medications as well as instructions otherwise. She will also contact onsite case manager to confirm ride. documented in this encounter Plan of Treatment Not on file documented as of this encounter Visit Diagnoses Not on filedocumented in this encounter Care Teams Test Engineer Relationship Specialty Start Date End Date Katia Stone, PABijalC [address] [place] [phone] PCP - General 05/02/17 documented as of this encounter
--- OUTSIDE RECORDS SUMMARY | 2023-12-22 18:13 | XMS_ITS | Encounter Summary ---
Author Organization [facility] Address [address] [place] [address] Care Team Providers Care Plate Washer Name Role Phone Katia Stone PA-C Primary Care Provider +1- [phone] Encounter Details Date Type Department Care Team (Late st Contact Info) Description 08/12/2020 Results Only [facility] - [facility] Rheumatology [address] [place] [address] Ester Valerio MD [address] [facility] [address] [place] [phone] Social History Tobacco Use Types Packs/Day Years [...] 1.8 - 2.4 mg/dl 08/12/2020 7:37 EDT [facility] 08/12/2020 6:48 EDT 08/12/2020 7:00 EDT Ester Valerio MD CHEMISTRY & BLOO D GAS ORDERABLES Performing Organization Address City/State/[facility] Co de Phone Number [facility] [address] [place] [address] * (ABNORMAL) BASIC METABOLIC PANEL (BMP) (08/12/2020 6:48 EDT) Sodium 135(L) 136 - 145 mEq/L 08/12/2020 7:37 EDT [facility] Potassium 3.2(L) 3.5 - 5.1 mEq/L 08/12/2020 7:37 EDT [facility] Chloride 101 96 - 107 mEq/L 08/12/2020 7:37 EDT [facility] CO2 Total 28.8 21 - 32 mEq/L 08/12/2020 7:37 [facility] Anion Gap 4.2 mEq/L 08/12/2020 7:37 [facility] BUN 5(L) 7 - 25 mg/dl 08/12/2020 7:37 [facility] Creatinine 0.50(L) 0.70 - 1.30 mg/dl 08/12/2020 7:37 [facility] Estimated GFR >60 >60 08/12/2020 7:37 [facility] Comment: EGFR UNITS: mL/min/1.73 m 2 CKD-EPI Equation used to calculate. Glucose 102 74 - 106 mg/dl 08/12/2020 7:37 [facility] Calcium 7.9(L) 8.5 - 10.1 mg/dl 08/12/2020 7:37 [facility] 08/12/2020 6:48 EDT 08/12/2020 7:00 EDT Ester Valerio MD CHEMISTRY & BLOO D GAS ORDERABLES [facility] [address] [place] [address] * (ABNORMAL) HEPATIC FUNCTION PANEL (ALB,ALK PHOS,ALT,AST,DBIL,TOT BOSSMAN,TOT PROT) (08/12/2020 6:48 EDT) BILIRUBIN - PMC 0.50 0.00 - 1.00 mg/dl 08/12/2020 7:37 [facility] DIRECT BILIRUBIN - PMC 0.20 0.00 - 0.30 mg/dl 08/12/2020 7:37 [facility] INDIRECT BILIRUBIN - PMC 0.30 0.00 - 0.80 mg/dl 08/12/2020 7:37 [facility] AST 31 15 - 37 U/L 08/12/2020 7:37 [facility] ALT 25 16 - 63 U/L 08/12/2020 7:37 [facility] Alkaline Phosphatase 99 46 - 116 U/L 08/12/2020 7:37 EDT [facility] Total Protein 5.9(L) 6.4 - 8.2 g/dl 08/12/2020 7:37 EDT [facility] Albumin 2.2(L) 3.4 - 5.0 g/dl 08/12/2020 7:37 EDT [facility] GLOBULIN - PMC 3.7 g/dl 08/12/2020 7:37 EDT [facility] ALBUMIN/GLOBULIN RATIO - PMC 0.5 08/12/2020 7:37 EDT [facility] 08/12/2020 6:48 EDT 08/12/2020 7:00 EDT Ester Valerio MD CHEMISTRY & BLOO D GAS ORDERABLES [facility] [address] [place] [address] documented in this encounter Visit Diagnoses Not on filedocumented in this encounter Care Teams Plate Washer Relationship Specialty Start Date End Date Katia Stone, PABijalC [address] [place] [phone] PCP - General 05/02/17 documented as of this encounter
--- OUTSIDE RECORDS SUMMARY | 2023-12-22 18:13 | XMS_ITS | Encounter Summary ---
Author Organization [facility] Address [address] [place] [address] Care Team Providers Care Administrative Library Assistant Name Role Phone Katia Stone PA-C Primary Care Provider +1- [phone] Reason for Visit * Reason Onset Date Comments Other 05/19/2020 Encounter Details Date Type Department Care Team (Late st Contact Info) Description 05/19/2020 Telephone [facility] Cardiothoracic Surgery - [facility] [address] [place] [address] Ja Browne MD [address] [place] [phone] Other Social History Tobacco Use Types [...] CT Surgery Update Patient showed up at [facility] for his CBC and the cytogenetics laboratory manager turned him away as the patient said I'll wait and have it done in [place] when I have the other blood test done. The otherblood test needed is on the day of surgery for a Pre-Op Blood Draw (type and screen). I called the lab and spoke with a Desi and she will place a note in the system so that they don't turn him away again. I asked them to call our office at [phone] if there are any questions when the patient arrives. He must have the CBC prior to surgery. I called Nila the CM at his Proivder's office and reviewed above with her. She will call the patientas she works closely with him. P) CBC at [place]. Call CT Surgery WHILE PATIENT IS THERE IF ANY QUESTIONS. * Telephone Encounter - Alma Dhillon - 05/19/2020 1244 EDT Please call caseworker at PCP Office, Nila. Patient went to [facility] to have pre-op blood draw, as he was directed. [place] saw the order for blood bank draw, and would not draw any bloodwork for the patient. documented in this encounter Plan of Treatment Not on file documented as of this encounter Visit Diagnoses Not on filedocumented in this encounter Care Teams Administrative Library Assistant Relationship Specialty Start Date End Date Katia Stone, MINGO [address] [place] [phone] PCP - General 05/02/17 documented as of this encounter
--- OUTSIDE RECORDS SUMMARY | 2023-12-22 18:13 | XMS_ITS | Encounter Summary ---
Author Organization [facility] Address [address] [place] [address] Care Team Providers Care Excelsior Machine Feeder Name Role Phone Katia Stone PA-C Primary Care Provider +1- [phone] Reason for Visit * Reason Onset Date Comments Labs Only 05/11/2020 Encounter Details Date Type Department Care Team (Late st Contact Info) Description 05/11/[address] [facility] Acute Care Surgery - [facility] [address] [place] [address] Ja Browne MD [address] [place] [phone] Labs Only Social History Tobacco Use [...] reviewed this with the Radiology front desk auxiliary on ACC 3 that he would need to be taken to the lab on Level 2 following his chest x-ray. They did not take him. I will re-enter the orders for the CBC to have drawn at [place] which is closest to the patient's home he states. I have routed our CT PACHECO Salvador STOUT to re-enter the Type and Screen/ x match order to be drawn inpre-op hold on the dosa. Pt made aware to go to [facility] to have the CBC drawn on 05/17 or05/18. I confirmed with the Lab there that it's the CBC that needs to be drawn. Patient'S Librarian verbalized understanding and no appt needed. Pt [...] on filedocumented in this encounter Care Teams Excelsior Machine Feeder Relationship Specialty Start Date End Date Katia Stone, MINGO [address] [place] [phone] PCP - General 05/02/17 documented as of this encounter
--- OUTSIDE RECORDS SUMMARY | 2023-12-22 18:13 | XMS_ITS | Encounter Summary ---
Author Organization [facility] Address [address] [place] [address] Care Team Providers Care Grade Recorder Name Role Phone Katia Stone PA-C Primary Care Provider +1- [phone] Reason for Visit * Reason Onset Date Comments Other 06/13/2020 Encounter Details Date Type Department Care Team (Late st Contact Info) Description 06/13/2020 Telephone [facility] Cardiothoracic Surgery - [address] [address] Cat Sutherland RN Other Social History Tobacco [...] for surgery at 1210 on 06/26. His Percussion Instructor with PCP is setting up his ride for [place] on 06/26 and for his COVID test that will need to be done 3-4 days prior to surgery. Patient verbalized understanding. I called the patient's Percussion Instructor at [facility] at [phone] and left her a message (Maru Villalobos, TISH). She will be arranging his ride to [place] on DOSA and for his COVID test. I have updated our MANUFACTURING ENGINEER SUPERVISOR and Beulah FAIR CM at [facility] as well. documented in this encounter Plan of Treatment Not on file documented as of this encounter Visit Diagnoses Not on filedocumented in this encounter Care Teams Grade Recorder Relationship Specialty Start Date End Date Katia Stone, BELLAC [address] [place] [phone] PCP - General 05/02/17 documented as of this encounter
--- OUTSIDE RECORDS SUMMARY | 2023-12-22 18:13 | XMS_ITS | Encounter Summary ---
Author Organization [facility] Address [address] [place] [address] Care Team Providers Care Citrix Systems Administrator Name Role Phone Katia Stone PA-C Primary Care Provider +1- [phone] Encounter Details Date Type Department Care Team [...] on filedocumented in this encounter Care Teams Citrix Systems Administrator Relationship Specialty Start Date End Date Katia Stone, MINGO [address] [place] [phone] PCP - General 05/02/17 documented as of this encounter
--- OUTSIDE RECORDS SUMMARY | 2023-12-22 18:13 | XMS_ITS | Encounter Summary ---
Author Organization [facility] Address [address] [place] [address] Care Team Providers Care Electrical Worker Name Role Phone Katia Stone PA-C Primary Care Provider +1- [phone] Reason for Visit * Reason Onset Date Comments Other 05/16/2020 EKG results Encounter Details Date Type Department Care Team (Late st Contact Info) Description 05/16/2020 Telephone [facility] Cardiothoracic Surgery - [address] [address] Cat Sutherland RN Other (EKG results) Social [...] 2020. [facility] to fax report to [phone]. [facility] I have routed our PA Salvador Roca to see if he wants to repeat on DOSA. documented in this encounter Plan of Treatment Not on file documented as of this encounter Visit Diagnoses Not on filedocumented in this encounter Care Teams Electrical Worker Relationship Specialty Start Date End Date Katia Stone, PA-C [address] [place] [phone] PCP - General 05/02/17 documented as of this encounter
--- OUTSIDE RECORDS SUMMARY | 2023-12-22 18:13 | XMS_ITS | Encounter Summary ---
Author Organization [facility] Address [address] [place] [address] Care Team Providers Care Public Relations Intern Name Role Phone Katia Stone PA-C Primary Care Provider +1- [phone] Reason for Visit * Reason Onset Date Comments Appointment Related 05/04/2020 Encounter Details Date Type Department Care Team (Late st Contact Info) Description 05/04/2020 Telephone [facility] Cardiothoracic Surgery - [facility] [address] [place] [address] Ja Browne MD [address] [place] [phone] Appointment Related Social History Tobacco Use [...] - 05/10/2020 0953 EST Medical records from [facility] received, scanned and book marked for [...] 05/08/2020, at 10:30 am. Fax out to [facility] and [facility] to request patient's Discharge Summary from recent hospitalization, as well as diagnostic testing, EKG, labs, etc. Await response. documented in this encounter Plan of Treatment Not on file documented as of this encounter Visit Diagnoses Not on filedocumented in this encounter Care Teams Public Relations Intern Relationship Specialty Start Date End Date Katia Stone, MINGO [address] [place] [phone] PCP - General 05/02/17 documented as of this encounter
--- OUTSIDE RECORDS SUMMARY | 2023-12-22 18:13 | XMS_ITS | Encounter Summary ---
Author Organization [facility] Address [address] [place] [address] Care Team Providers Care Final Coat Sprayer Name Role Phone Katia Stone PA-C Primary Care Provider +1- [phone] Encounter Details Date Type Department Care Team (Late st Contact Info) Description 05/16/2020 Documentation Visit [facility] Infectious Disease - [address] [address] [facility] [address] [phone] Social History Tobacco Use Types [...] - 05/16/2020 0947 EDT Upon entering the [facility], patient answered yes to one of [...] patient sent to appointment. Kem Thomson RN, [id number] documented in this encounter Plan of Treatment Not on file documented as of this encounter Visit Diagnoses Not on filedocumented in this encounter Care Teams Final Coat Sprayer Relationship Specialty Start Date End Date Katia Stone, MINGO [address] [place] [phone] PCP - General 05/02/17 documented as of this encounter
--- OUTSIDE RECORDS SUMMARY | 2023-12-22 18:13 | XMS_ITS | Encounter Summary ---
Author Organization [facility] Address [address] [place] [address] Care Team Providers Care Cigar Making Machine Supervisor Name Role Phone Katia Stone PA-C Primary Care Provider +1- [phone] Reason for Visit * Reason Onset Date Comments Appointment Related 02/07/2020 PA REQUEST Encounter Details Date Type Department Care Team (Late st Contact Info) Description 02/07/2020 Telephone [facility] [address] [place] [address] Ulises Reinoso MD [address] [place] [address] Appointment Related (PA REQUEST) Social [...] - 02/07/2020 1327 EST PA REQUEST ECHOCARDIOGRAM [id number] 02/29/20 DYSPNEA (R06.0) VITA LIVE THANK YOU! documented in this encounter Plan of Treatment Not on file documented as of this encounter Visit Diagnoses Not on filedocumented in this encounter Care Teams Cigar Making Machine Supervisor Relationship Specialty Start Date End Date Katia Stone, PA-C [address] [place] [phone] PCP - General 05/02/17 documented as of this encounter
--- OUTSIDE RECORDS SUMMARY | 2023-12-22 18:13 | XMS_ITS | Encounter Summary ---
Author Organization [facility] Address [address] [place] [address] Care Team Providers Care Medical Voucher Clerk Name Role Phone Katia Stone PA-C Primary Care Provider +1- [phone] Reason for Visit * Reason Comments Pacemaker Problem Encounter Details Date Type Department Care Team (Late st Contact Info) Description 04/12/2020 12:20 EST Office Visit [facility] Cardiology [address] [address] Tony Rosenberg MD [address] [place] [address] [place] [phone] Heart block AV third degree (HCC-CMS) [...] [facility] CARD[facility]OLOG[facility] - [facility] PROGRESS / FOLLOWUP NOTE - 04/12/2020 PROBLEM LIST 1. Third-degree heart block, status post dual chamber pacemaker insertion, complicated by pericardial effusion and need for 12-lead repositioning. 2. Hyponatremia. 3. RA lead failure. SUBJECTIVE: Mr Mera returns to the clinic at [facility] to discuss the issues surrounding [...] has had 2 recent hospitalizations, one at [facility] and the other at [facility] for treatment of hyponatremia. PHYSICAL EXAMINATION: [...] Tony Rosenberg MD / CD Dictation ID: [id number] cc: documented in this encounter Plan of Treatment Not on file documented as of this encounter Visit Diagnoses Diagnosis 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, complete documented in this encounter Care Teams Medical Voucher Clerk Relationship Specialty Start Date End Date Katia Stone, MINGO [address] [place] [phone] PCP - General 05/02/17 documented as of this encounter
--- OUTSIDE RECORDS SUMMARY | 2023-12-22 18:13 | XMS_ITS | Encounter Summary ---
Author Organization [facility] Address [address] [place] [address] Care Team Providers Care Wind Farm Operations Manager Name Role Phone Katia Stone PA-C Primary Care Provider +1- [phone] Encounter Details Date Type Department Care Team (Late st Contact Info) Description 08/11/2020 Results Only [facility] [place] [facility] [place] [address] [place] [address] Ester Valerio MD [address] [facility] [address] [place] [phone] Social History Tobacco Use Types Packs/Day Years [...] 1.8 - 2.4 mg/dl 08/11/2020 6:07 EDT [facility] 08/11/2020 5:25 EDT 08/11/2020 5:39 EDT Ester Valerio MD CHEMISTRY & BLOO D GAS ORDERABLES Performing Organization Address City/State/[facility] Co de Phone Number [facility] [address] [place] [address] * (ABNORMAL) BASIC METABOLIC PANEL (BMP) (08/11/2020 5:25 EDT) Sodium 132(L) 136 - 145 mEq/L 08/11/2020 6:07 EDT [facility] Potassium 3.5 3.5 - 5.1 mEq/L 08/11/2020 6:07 T [facility] Chloride 99 96 - 107 mEq/L 08/11/2020 6:07 EDT [facility] CO2 Total 28.6 21 - 32 mEq/L 08/11/2020 6:07 [facility] Anion Gap 4.4 mEq/L 08/11/2020 6:07 [facility] BUN 5(L) 7 - 25 mg/dl 08/11/2020 6:07 [facility] Creatinine 0.51(L) 0.70 - 1.30 mg/dl 08/11/2020 6:07 [facility] Estimated GFR >60 >60 08/11/2020 6:07 [facility] Comment: EGFR UNITS: mL/min/1.73 m 2 CKD-EPI Equation used to calculate. Glucose 112(H) 74 - 106 mg/dl 08/11/2020 6:07 [facility] Calcium 7.7(L) 8.5 - 10.1 mg/dl 08/11/2020 6:07 [facility] 08/11/2020 5:25 EDT 08/11/2020 5:39 EDT Ester Valerio MD CHEMISTRY & BLOO D GAS ORDERABLES [facility] [address] [place] [address] * (ABNORMAL) HEPATIC FUNCTION PANEL (ALB,ALK PHOS,ALT,AST,DBIL,TOT BOSSMAN,TOT PROT) (08/11/2020 5:25 EDT) BILIRUBIN - PMC 0.70 0.00 - 1.00 mg/dl 08/11/2020 6:07 [facility] DIRECT BILIRUBIN - PMC 0.30 0.00 - 0.30 mg/dl 08/11/2020 6:07 [facility] INDIRECT BILIRUBIN - PMC 0.40 0.00 - 0.80 mg/dl 08/11/2020 6:07 [facility] AST 39(H) 15 - 37 U/L 08/11/2020 6:07 [facility] ALT 30 16 - 63 U/L 08/11/2020 6:07 [facility] Alkaline Phosphatase 95 46 - 116 U/L 08/11/2020 6:07 EDT [facility] Total Protein 6.1(L) 6.4 - 8.2 g/dl 08/11/2020 6:07 T [facility] Albumin 2.2(L) 3.4 - 5.0 g/dl 08/11/2020 6:07 EDT [facility] GLOBULIN - PMC 3.9 g/dl 08/11/2020 6:07 EDT [facility] ALBUMIN/GLOBULIN RATIO - PMC 0.5 08/11/2020 6:07 EDT [facility] 08/11/2020 5:25 EDT 08/11/2020 5:39 EDT Ester Valerio MD CHEMISTRY & BLOO D GAS ORDERABLES [facility] [address] [place] [address] documented in this encounter Visit Diagnoses Not on filedocumented in this encounter Care Teams Wind Farm Operations Manager Relationship Specialty Start Date End Date Katia Stone, BELLAC [address] [place] [phone] PCP - General 05/02/17 documented as of this encounter
--- OUTSIDE RECORDS SUMMARY | 2023-12-22 18:13 | XMS_ITS | Encounter Summary ---
Author Organization [facility] Address [address] [place] [address] Care Team Providers Care Web Architect Name Role Phone Katia Stone PA-C Primary Care Provider +1- [phone] Encounter Details Date Type Department Care Team (Late st Contact Info) Description 08/18/2020 Results Only [facility] [address] [place] [address] Junior Ray MD [address] [place] [address] Social History Tobacco Use Types [...] 138 136 - 145 mEq/L 08/18/2020 5:47 [facility] Potassium 3.3(L) 3.5 - 5.1 mEq/L 08/18/2020 5:47 [facility] Chloride 101 96 - 107 mEq/L 08/18/2020 5:47 [facility] CO2 Total 31.3 21 - 32 mEq/L 08/18/2020 5:47 [facility] Anion Gap 5.7 mEq/L 08/18/2020 5:47 [facility] BUN 9 7 - 25 mg/dl 08/18/2020 5:47 [facility] Creatinine 0.66(L) 0.70 - 1.30 mg/dl 08/18/2020 5:47 [facility] Estimated GFR >60 >60 08/18/2020 5:47 [facility] Comment: EGFR UNITS: mL/min/1.73 m 2 CKD-EPI Equation used to calculate. Glucose 86 74 - 106 mg/dl 08/18/2020 5:47 [facility] Calcium 8.0(L) 8.5 - 10.1 mg/dl 08/18/2020 5:47 [facility] 08/18/2020 5:15 EDT 08/18/2020 5:27 EDT Junior Ray MD CHEMISTRY & BLOOD G ORDERABLES Performing Organization Address City/[facility]/ZIP Co de Phone Number [facility] [address] [place] [address] * (ABNORMAL) COMPLETE BLOOD COUNT (08/18/2020 5:15 EDT) WBC 5.2 4.0 - 10.5 10 3/uL 08/18/2020 5:41 [facility] RBC 2.68(L) 4.70 - 6.00 10 6/uL 08/18/2020 5:41 [facility] Hemoglobin 9.4(L) 13.5 - 18.0 g/dL 08/18/2020 5:41 [facility] HCT 27.5(L) 42.0 - 52.0 % 08/18/2020 5:41 [facility] MCV 102.6(H) 78 - 100 fL 08/18/2020 5:41 [facility] MCH 35.1(H) 27 - 31 pg 08/18/2020 5:41 [facility] MCHC 34.2 32 - 37 g/dL 08/18/2020 5:41 [facility] RDW-CV - PMC 15.2(H) <14.7 % 08/18/2020 5:41 [facility] PLATELET COUNT - PMC 233 150 - 450 10 3/uL 08/18/2020 5:41 [facility] MPV 10.3 9.2 - 12.0 fL 08/18/2020 5:41 [facility] 08/18/2020 5:15 EDT 08/18/2020 5:27 EDT Junior Ray MD HEMATOLOGY & PF4 OR DERABLES Performing Organization Address City/[facility]/ZIP Co de Phone Number [facility] [address] [place] [address] documented in this encounter Visit Diagnoses Not on filedocumented in this encounter Care Teams Web Architect Relationship Specialty Start Date End Date Katia Stone, PABijalC [address] [place] [phone] PCP - General 05/02/17 documented as of this encounter
--- OUTSIDE RECORDS SUMMARY | 2023-12-22 18:13 | XMS_ITS | Encounter Summary ---
Author Organization [facility] Address [address] [place] [address] Care Team Providers Care Outside Physical Damage Appraiser Name Role Phone Katia Stone PA-C Primary Care Provider +1- [phone] Reason for Referral * Radiology Services (Routine) - Closed Specialty Diagnoses / Procedures Referred By Jael ho Referred To Contact Diagnoses 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, initial encounter Procedures XR CHEST 2 VIEWS José Miguel Roca PA-C [address] [place] [phone] Referral ID Status Reason Start Date Expiration Date Visits Re quested Visits Authorized [id number] Closed 05/16/2020 1 1 Reason for Visit * Radiology Services (Routine) - Closed Specialty Diagnoses / Procedures Referred By Jael ho Referred To Contact Diagnoses 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, initial encounter Procedures XR CHEST 2 VIEWS José Miguel Roca PA-C [address] [phone] Referral ID Status Reason Start Date Expiration Date Visits Re quested Visits Authorized [id number] Closed 05/16/2020 1 1 Encounter Details Date Type Department Care Team (Latest Contact Info) Description 05/16/2020 10:57 EDT - 05/16/2020 23:59 EDT [facility] Radiology Xray Outpatient - [address] [address] 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, [...] encounter documented in this encounter Care Teams Outside Physical Damage Appraiser Relationship Specialty Start Date End Date Katia Stone PA-C [address] [place] [phone] PCP - General 05/02/17 documented as of this encounter
--- OUTSIDE RECORDS SUMMARY | 2023-12-22 18:13 | XMS_ITS | Encounter Summary ---
Author Organization [facility] Address [address] [place] [address] Care Team Providers Care Senior Drupal Developer Name Role Phone Katia Stone PA-C Primary Care Provider +1- [phone] Reason for Referral * Radiology Services (Routine) - Closed Specialty Diagnoses / Procedures Referred By Contac t Referred To Contact Diagnoses 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, initial encounter Procedures XR CHEST 2 VIEWS José Miguel Roca PA-C [address] [facility] [address] [place] [address] Referral ID Status Reason Start Date Expiration Date Visits Re quested Visits Authorized [id number] Closed 05/16/2020 1 1 Reason for Visit [...] Rosenberg MD [address] [place] [address] Ja Browne MD [address] [place], [place] [address]Latasha [address] [address] Referral ID Status Reason Start Date Expiration Date Visits Re quested Visits Authorized [id number] Closed 1 1 Encounter Details Date Type Department Care Team (Latest Contact Info) Description 05/16/2020 9:30 EDT Office Visit [facility] Cardiothoracic Surgery - [address] [place] [address] Ja Browne MD [address] [place] [address] Displacement of electrode lead of [...] the Division of Cardiothoracic Surgery at the [facility]. We look forward to making your stay a safe, comfortable and pleasant experience. ??? Your surgery is scheduled on: To Be Announced ??? Please plan to arrive at: To Be Announced ??? When you arrive you should report to Registration on Level 3 (street level), located near the Main Entrance of the [facility] at the [facility]. Due to COVID, there [...] this appointment please contact our office at [phone]. We have included a local lodging list should you or your family require accommodations around the time of your surgery. Discounts may apply for family members of patients being hospitalized, please ask the hotel when booking. If you have cancer, you and your family member are eligible to stay at the [facility] [employer] [facility] [place]. The Oncology Patient Navigator can be reached at [phone] for assistance with this. You should receive [...] days prior to your surgery. Stop Saw [place] 14 days prior to surgery. ??? Acetaminophen [...] IF THIS CHANGES, CALL OUR OFFICE AT [phone]. Continue to take all of your other [...] helpful. ??? Do not wear any nail botswanan, makeup, powder, lotion, deodorant or jewelry of [...] them with an appointment contact them at [phone] as the test MUST BE DONE 72 [...] to the Surgeon's office on Level 5 [facility] Outpatient office. Note: If for [...] listed below. The Division of Cardiothoracic Surgery [address] [place] [phone] (Toll Free) MD Geovanni Toure MD Marek [...] file Gets together: Not on file Attends hoahaoism service: Not on file Active member of [...] Thank you. Ja Browne MD Cardiothoracic Surgery [phone] (office) 05/16/2020 10:36 * Cat Sutherland RN - 05/16/2020 0906 EDT Cardiac Surgery Nursing Pre-Operative Teaching ELECTIVES [...] added in this encounter Care Teams Senior Drupal Developer Relationship Specialty Start Date End Date Katia Stone PA-C [address] [place] [phone] PCP - General 05/02/17 documented as of this encounter
--- OUTSIDE RECORDS SUMMARY | 2023-12-22 18:13 | XMS_ITS | Encounter Summary ---
Author Organization [facility] Address [address] [place] [address] Care Team Providers Care Microbiological Lab Technician Name Role Phone Katia Stone PA-C Primary Care Provider +1- [phone] Encounter Details Date Type Department Care Team (Late st Contact Info) Description 08/14/2020 Results Only [facility] [address] [place] [address] Jayesh Olmos MD [address] [place] [address] Social History Tobacco Use Types [...] 1.8 - 2.4 mg/dl 08/14/2020 6:19 EDT [facility] 08/14/2020 5:03 EDT 08/14/2020 5:51 EDT Jayesh Olmos MD CHEMISTRY & BLO OD GAS ORDERABLES [facility] [address] [place] [address] * (ABNORMAL) COMPREHENSIVE METABOLIC PANEL (CMP) (08/14/2020 5:03 EDT) Sodium 138 136 - 145 mEq/L 08/14/2020 6:19 EDT [facility] Potassium 3.6 3.5 - 5.1 mEq/L 08/14/2020 6:19 [facility] Chloride 103 96 - 107 mEq/L 08/14/2020 6:19 T [facility] CO2 Total 28.4 21 - 32 mEq/L 08/14/2020 6:19 T [facility] Anion Gap 6.6 mEq/L 08/14/2020 6:19 [facility] BUN 11 7 - 25 mg/dl 08/14/2020 6:19 [facility] Creatinine 0.51(L) 0.70 - 1.30 mg/dl 08/14/2020 6:19 [facility] Estimated GFR >60 >60 08/14/2020 6:19 [facility] Comment: EGFR UNITS: mL/min/1.73 m 2 CKD-EPI Equation used to calculate. Glucose 101 74 - 106 mg/dl 08/14/2020 6:19 [facility] Calcium 8.1(L) 8.5 - 10.1 mg/dl 08/14/2020 6:19 [facility] CALCIUM,CORRECTE D - PMC 9.5 8.5 - 10.5 mg/dl 08/14/2020 6:19 [facility] BILIRUBIN - PMC 0.40 0.00 - 1.00 mg/dl 08/14/2020 6:19 [facility] AST 34 15 - 37 U/L 08/14/2020 6:19 [facility] ALT 21 16 - 63 U/L 08/14/2020 6:19 [facility] Alkaline Phosphatase 102 46 - 116 U/L 08/14/2020 6:19 [facility] Total Protein 6.3(L) 6.4 - 8.2 g/dl 08/14/2020 6:19 [facility] Albumin 2.2(L) 3.4 - 5.0 g/dl 08/14/2020 6:19 [facility] GLOBULIN - PMC 4.1 g/dl 08/14/2020 6:19 [facility] ALBUMIN/GLOBULIN RATIO - PMC 0.5 08/14/2020 6:19 [facility] 08/14/2020 5:03 EDT 08/14/2020 5:51 EDT Jayesh Olmos MD CHEMISTRY & BLO OD GAS ORDERABLES [facility] [address] [place] [address] * (ABNORMAL) COMPLETE BLOOD COUNT AND DIFFERENTIAL (08/14/2020 5:03 EDT) WBC 5.1 4.0 - 10.5 10 3/uL 08/14/2020 6:06 [facility] RBC 2.76(L) 4.70 - 6.00 10 6/uL 08/14/2020 6:06 [facility] Hemoglobin 9.9(L) 13.5 - 18.0 g/dL 08/14/2020 6:06 [facility] HCT 28.7(L) 42.0 - 52.0 % 08/14/2020 6:06 [facility] MCV 104.0(H) 78 - 100 fL 08/14/2020 6:06 [facility] MCH 35.9(H) 27 - 31 pg 08/14/2020 6:06 [facility] MCHC 34.5 32 - 37 g/dL 08/14/2020 6:06 [facility] RDW-CV - PMC 15.9(H) <14.7 % 08/14/2020 6:06 [facility] PLATELET COUNT - PMC 189 150 - 450 10 3/uL 08/14/2020 6:06 [facility] MPV 10.8 9.2 - 12.0 fL 08/14/2020 6:06 [facility] NEUTROPHILS % (AUTO) - PMC 54.7 % 08/14/2020 6:06 [facility] LYMPHOCYTES % (AUTO) - PMC 23.0 % 08/14/2020 6:06 [facility] MONOCYTES % (AUTO) - PMC 18.2 % 08/14/2020 6:06 [facility] EOSINOPHILS % (AUTO) - PMC 2.5 NOT ESTABLISHED % 08/14/2020 6:06 [facility] BASOPHILS % (AUTO) - PMC 0.8 % 08/14/2020 6:06 [facility] Immature Granulocyte % (Auto) 0.8 % 08/14/2020 6:06 [facility] NUCLEATED RBC % (AUTO) - PMC 0.0 % 08/14/2020 6:06 [facility] NEUTROPHILS # (AUTO) - PMC 2.8 1.5 - 6.6 10 3/uL 08/14/2020 6:06 [facility] LYMPHOCYTES # (AUTO) - PMC 1.2 1.0 - 3.5 10 3/uL 08/14/2020 6:06 [facility] MONOCYTES # (AUTO) - PMC 0.9 <1.0 10 3/uL 08/14/2020 6:06 [facility] EOSINOPHILS # (AUTO) - PMC 0.1 <0.7 10 3/uL 08/14/2020 6:06 [facility] Absolute Immature Granulocyte 0.04 <0.06 10 3/uL 08/14/2020 6:06 [facility] DIFFERENTIAL METHOD Auto Differential 08/14/2020 5:52 [facility] 08/14/2020 5:03 EDT 08/14/2020 5:51 EDT Narrative [facility] - 08/14/2020 6:11 EDT Comment ENOXAPARIN MONITORING Jayesh Olmos MD PACKAGES & DNA PROBE ORDERABLES [facility] [address] [place] [address] documented in this encounter Visit Diagnoses Not on filedocumented in this encounter Care Teams Microbiological Lab Technician Relationship Specialty Start Date End Date Katia tSone, PABijalC [address] [place] [phone] PCP - General 05/02/17 documented as of this encounter
--- OUTSIDE RECORDS SUMMARY | 2023-12-22 18:14 | XMS_ITS | Encounter Summary ---
Author Organization [facility] Address [address] [place] [address] Care Team Providers Care Linux Support Engineer Name Role Phone Katia Stone PA-C Primary Care Provider +1- [phone] Encounter Details Date Type Department Care Team (Late st Contact Info) Description 01/17/2020 Results Only [facility] [phone] Jayesh Olmos MD [address] [place] [address] Social History Tobacco Use Types Packs/Day [...] ? 11 ?mcg/dL ??7-25 Test Performed by: [facility] [address] [place] [address] Doper Operator: Pierre Andersen M.D. Ph.D.; CLIA# [id number] 01/17/2020 7:50 EST 01/17/2020 7:51 EST Jayesh Olmos MD CHEMISTRY & BLO OD GAS ORDERABLES [facility] [address] [place] [address] * (ABNORMAL) BASIC METABOLIC PANEL,RANDOM - PMC (01/17/2020 7:50 EST) [facility] Sodium 130(L) 136 - 145 mEq/L 01/17/2020 8:13 [facility] Potassium 3.7 3.5 - 5.1 mEq/L 01/17/2020 8:13 [facility] Chloride 95(L) 96 - 107 mEq/L 01/17/2020 8:13 [facility] CO2 Total 27.4 21 - 32 mEq/L 01/17/2020 8:13 [facility] Anion Gap 7.6 mEq/L 01/17/2020 8:13 [facility] BUN 10 7 - 25 mg/dl 01/17/2020 8:13 [facility] Creatinine 0.62(L) 0.70 - 1.30 mg/dl 01/17/2020 8:13 [facility] Estimated GFR >60 >60 01/17/2020 8:18 [facility] Comment: EGFR UNITS: mL/min/1.73 m 2 CKD-EPI Equation used to calculate. Glucose 91 70 - 180 mg/dl 01/17/2020 8:13 [facility] Calcium 8.4(L) 8.5 - 10.1 mg/dl 01/17/2020 8:13 [facility] 01/17/2020 7:50 EST 01/17/2020 7:51 EST Jayesh Olmos MD CHEMISTRY & BLO OD GAS ORDERABLES Performing Organization Address City/State/[facility] Co de Phone Number [facility] [address] [place] [address] documented in this encounter Visit Diagnoses Not on filedocumented in this encounter Care Teams Linux Support Engineer Relationship Specialty Start Date End Date Katia Stone PABijalC [address] [facility] [place] [phone] PCP - General 05/02/17 documented as of this encounter
--- OUTSIDE RECORDS SUMMARY | 2023-12-22 18:14 | XMS_ITS | Encounter Summary ---
Author Organization [facility] Address [address] [place] [address] Care Team Providers Care Chief Revenue Officer Name Role Phone Katia Stone PA-C Primary Care Provider +1- [phone] Reason for Visit * Reason Onset Date Comments Other 06/18/2017 discharged on 06.03.15 Follow-up 07/16/2017 Encounter Details Date Type Department Care Team (Late st Contact Info) Description 06/18/2017 Telephone [facility] Cardiology - [address] [place] [address] Pierre Rubio MD [address] [facility] [address] [place] [address] Other (discharged on 06.03.15); Follow-up [...] - 07/16/2017 1310 EDT Riley WINSTON at [facility] called. States : Wt 2 [...] taper and [facility] [place], stated colchicine has run out- not sure if pt needs a refill or not. States he called pt's PCP in [place] and that MD wants to know if RN should draw labs? Please call back JOAN as he is with the pt now. Routing to Giovanni Sam NP and Belinda Eddy RN and will also go speak with one of them as well. Let Riley WINSTON know that Belinda Eddy would call back. * Telephone Encounter - Isidra Telles - 07/16/2017 1257 EDT [facility], Weight at 224, has been fluctuating Limited edema Has been winded Less endurance Cough has green secretions Some slight harsh breathing sounds Questions: Blood Work? Prednisone Taper seems to be off, will need a refill if continuing in the same manner * Telephone Encounter - Belinda Falk RN - 06/18/2017 1630 EDT Spoke with Riley horta [facility] mentioned call placed to patient to confirm medication taking. Per patient he was taking Torsemide 40 mg daily and was not taking lasix. Per Bill this was differnet then what was discussed. Referred home Health to discuss care with Shailesh Torres MD in [place] and Katia Mccallum PA-C, [facility]. * Telephone Encounter - Belinda Falk [...] on 06.16.17. He has been feeling ok. [facility] health is calling to discuss [...] filedocumented in this encounter Care Teams Chief Revenue Officer Relationship Specialty Start Date End Date Katia Stone PA-C [address] [place] [phone] PCP - General 05/02/17 documented as of this encounter
--- OUTSIDE RECORDS SUMMARY | 2023-12-22 18:14 | XMS_ITS | Encounter Summary ---
Author Organization [facility] Address [address] [place] [address] Care Team Providers Care Paperhanger Pipe Name Role Phone Katia Stone PA-C Primary Care Provider +1- [phone] Encounter Details Date Type Department Care Team (Late st Contact Info) Description 07/19/2018 Historical Results Only [facility] [address] [place] [id number] Vick Limon MD [address] [place] [address] Social History Tobacco Use Types [...] WBC 8.1 4.0 - 10.5 07/19/2018 18:47 [facility] RBC 3.65(L) 4.70 - 6.00 07/19/2018 18:47 [facility] Hemoglobin 12.5(L) 13.5 - 18.0 07/19/2018 18:47 [facility] HCT 34.2(L) 42.0 - 52.0 07/19/2018 18:47 [facility] MCV 93.7 78 - 100 07/19/2018 18:47 [facility] MCH 34.2(H) 27 - 31 07/19/2018 18:47 [facility] MCHC 36.5(H) 32 - 36 07/19/2018 18:47 [facility] RDW-CV - PMC 12.4 11.5 - 14.0 07/19/2018 18:47 [facility] PLATELET COUNT - PMC 158 150 - 450 07/19/2018 18:47 [facility] NEUTROPHILS % (AUTO) - PMC 63.5 42.0 - 75.0 07/19/2018 18:47 [facility] LYMPHOCYTES % (AUTO) - PMC 22.6 16.0 - 52.0 07/19/2018 18:47 [facility] MONOCYTES % (AUTO) - PMC 9.6 1.0 - 11.0 07/19/2018 18:47 [facility] EOSINOPHILS % (AUTO) - PMC 2.9 0.0 - 7.0 07/19/2018 18:47 [facility] BASOPHILS % (AUTO) - PMC 0.7 0.0 - 4.0 07/19/2018 18:47 [facility] NUCLEATED RBC % (AUTO) - PMC 0.0 <1 07/19/2018 18:47 [facility] NEUTROPHILS # (AUTO) - PMC 5.2 1.5 - 6.6 07/19/2018 18:47 [facility] LYMPHOCYTES # (AUTO) - PMC 1.8 1.0 - 3.5 07/19/2018 18:47 [facility] MONOCYTES # (AUTO) - PMC 0.8 <1.0 07/19/2018 18:47 [facility] EOSINOPHILS # (AUTO) - PMC 0.2 <0.7 07/19/2018 18:47 [facility] BASOPHILS # (AUTO) - PMC 0.1 <0.1 07/19/2018 18:47 [facility] NUCLEATED RBC # (AUTO) - PMC 0.00 <1 07/19/2018 18:47 [facility] 07/19/2018 18:3 0 EDT 07/19/2018 18:34 EDT Vick Limon MD PACKAGES & DNA PROBE ORDERABLES [facility] * (ABNORMAL) BASIC METABOLIC PANEL,RANDOM - PMC (07/19/2018 18:30 EDT) Sodium 120(L) 136 - 145 07/19/2018 18:52 [facility] Potassium 4.4 3.5 - 5.1 07/19/2018 18:52 [facility] Chloride 83(L) 96 - 107 07/19/2018 18:52 [facility] CO2 Total 24.6 21 - 32 07/19/2018 18:52 [facility] Anion Gap 13.4 07/19/2018 18:52 [facility] BUN 8 7 - 25 07/19/2018 [facility] Creatinine 0.67(L) 0.7 - 1.30 07/19/2018 18:52 [facility] Estimated GFR >60 >60 07/19/2018 19:01 [facility] Comment: EGFR UNITS: mL/min/1.73 m 2 CKD-EPI Equation used to calculate. Glucose 78 70 - 180 07/19/2018 18:52 [facility] Calcium 8.2(L) 8.5 - 10.5 07/19/2018 18:52 [facility] 07/19/2018 18:3 0 EDT 07/19/2018 18:34 EDT Vick Limon MD CHEMISTRY & BLOOD GA S ORDERABLES Performing Organization Address City/[facility]/ZIP Co de Phone Number [facility] [...] on filedocumented in this encounter Care Teams Paperhanger Pipe Relationship Specialty Start Date End Date Katia Stone, PABijalC [address] [place] [phone] PCP - General 05/02/17 documented as of this encounter
--- OUTSIDE RECORDS SUMMARY | 2023-12-22 18:14 | XMS_ITS | Encounter Summary ---
Author Organization [facility] Address [address] [place] [address] Care Team Providers Care Head Of Visual Merchandising Name Role Phone Katia Stone PA-C Primary Care Provider +1- [phone] Reason for Visit * Reason Onset Date Comments Other 08/15/2017 Returning Call 08/15/2017 To Belinda Encounter Details Date Type Department Care Team (Late st Contact Info) Description 08/15/[address] [facility] Cardiology - [address] [place], [place] [id number] Belinda Falk, TISH Other; Returning Call (To [...] - 08/15/2017 1243 EDT Spoke with Yessica (child care specialist at PCP) in regards to patient Tim [...] Yessica patient needs to follow-up with primary refrigerating engineer in [place] Dr. Torres. Per Yessica patient has not seen Dr. Torres since before his first admission to [facility] on 04/30/17. Mentioned to Yessica, patient needs to be following up with PCP and primary refrigerating engineer. Yessica expressed understanding and will reach out to Dr. Torres's office at [facility]. Discharge summaries and last OV note [...] by phone. Left detailed message, patient is [place] patient and no showed for visit with Dr. Rosenberg on 08/06. Instructed Yessica to reach out to [facility] where his primary refrigerating engineer is established on voice mail. documented in this encounter Plan of Treatment Not on file documented as of this encounter Visit Diagnoses Not on filedocumented in this encounter Care Teams Head Of Visual Merchandising Relationship Specialty Start Date End Date Katia Stone, MINGO [address] [place] [phone] PCP - General 05/02/17 documented as of this encounter
--- OUTSIDE RECORDS SUMMARY | 2023-12-22 18:14 | XMS_ITS | Encounter Summary ---
Author Organization [facility] Address [address] [place] [address] Care Team Providers Care Hot Dog Vendor Name Role Phone Katia Stone PA-C Primary Care Provider +1- [phone] Encounter Details Date Type Department Care Team (Late st Contact Info) Description 01/15/2020 Results Only [facility] [address] [place] [address] Unknown, Provider, Social History Tobacco Use Types [...] 136 - 145 mEq/L 01/15/2020 0:36 EST [facility] 01/15/2020 0:18 EST 01/15/2020 0:20 EST Provider Unknown CHEMISTRY & BLOOD GA S ORDERABLES Performing Organization Address City/State/[facility] Co de Phone Number [facility] [address] [place] [address] documented in this encounter Visit Diagnoses Not on filedocumented in this encounter Care Teams Hot Dog Vendor Relationship Specialty Start Date End Date Katia Stone, PABijalC [address] [place] [phone] PCP - General 05/02/17 documented as of this encounter
--- OUTSIDE RECORDS SUMMARY | 2023-12-22 18:14 | XMS_ITS | Encounter Summary ---
Author Organization [facility] Address [address] [place] [address] Care Team Providers Care Acid Maker Name Role Phone Katia Stone PA-C Primary Care Provider +1- [phone] Encounter Details Date Type Department Care Team (Late st Contact Info) Description 01/15/2020 Results Only [facility] [phone] Jayesh Olmos MD [address] [place] [phone] Social History Tobacco Use Types Packs/Day [...] * (ABNORMAL) MAGNESIUM (01/15/2020 6:16 EST) Pathologist [facility] Magnesium 1.6(L) 1.8 - 2.4 mg/dl 01/15/2020 7:55 [facility] 01/15/2020 6:16 EST 01/15/2020 7:24 EST Jayesh Olmos MD CHEMISTRY & BLO OD GAS ORDERABLES [facility] [address] [place] [address] * (ABNORMAL) HEPATIC & CMP COMBO,FASTING - PMC (01/15/2020 6:16 EST) Sodium 125(L) 136 - 145 mEq/L 01/15/2020 7:55 [facility] Potassium 3.8 3.5 - 5.1 mEq/L 01/15/2020 7:55 [facility] Chloride 93(L) 96 - 107 mEq/L 01/15/2020 7:55 [facility] CO2 Total 30.1 21 - 32 mEq/L 01/15/2020 7:55 [facility] Anion Gap 3.9 mEq/L 01/15/2020 7:55 [facility] BUN 10 7 - 25 mg/dl 01/15/2020 7:55 [facility] Creatinine 0.67(L) 0.70 - 1.30 mg/dl 01/15/2020 7:55 [facility] Estimated GFR >60 >60 01/15/2020 7:56 [facility] Comment: EGFR UNITS: mL/min/1.73 m 2 CKD-EPI Equation used to calculate. Glucose 92 74 - 106 mg/dl 01/15/2020 7:55 [facility] Calcium 8.2(L) 8.5 - 10.1 mg/dl 01/15/2020 7:55 [facility] CALCIUM,CORRECTE D - PMC 9.2 8.5 - 10.5 mg/dl 01/15/2020 7:55 [facility] BILIRUBIN - PMC 0.60 0.00 - 1.00 mg/dl 01/15/2020 7:55 [facility] AST 46(H) 15 - 37 U/L 01/15/2020 7:55 [facility] ALT 33 16 - 63 U/L 01/15/2020 7:55 [facility] Alkaline Phosphatase 82 46 - 116 U/L 01/15/2020 7:55 [facility] Total Protein 7.0 6.4 - 8.2 g/dl 01/15/2020 7:55 [facility] Albumin 2.8(L) 3.4 - 5.0 g/dl 01/15/2020 7:55 [facility] GLOBULIN - PMC 4.2 g/dl 01/15/2020 7:55 [facility] ALBUMIN/GLOBULIN RATIO - PMC 0.6 01/15/2020 7:55 [facility] 01/15/2020 6:16 EST 01/15/2020 7:24 EST Jayesh Olmos MD CHEMISTRY & BLO OD GAS ORDERABLES [facility] [address] [place] [address] * (ABNORMAL) COMPLETE BLOOD COUNT (01/15/2020 6:16 EST) WBC 4.4 4.0 - 10.5 10 3/uL 01/15/2020 7:45 [facility] RBC 3.26(L) 4.70 - 6.00 10 6/uL 01/15/2020 7:45 [facility] Hemoglobin 11.3(L) 13.5 - 18.0 g/dL 01/15/2020 7:45 [facility] HCT 31.2(L) 42.0 - 52.0 % 01/15/2020 7:45 [facility] MCV 95.7 78 - 100 fL 01/15/2020 7:45 [facility] MCH 34.7(H) 27 - 31 pg 01/15/2020 7:45 [facility] MCHC 36.2(H) 32 - 36 g/dL 01/15/2020 7:45 [facility] RDW-CV - PMC 12.8 11.0 - 14.8 % 01/15/2020 7:45 [facility] PLATELET COUNT - PMC 163 150 - 450 10 3/uL 01/15/2020 7:45 [facility] 01/15/2020 6:16 EST 01/15/2020 7:24 EST Jayesh Olmos MD HEMATOLOGY & PF 4 ORDERABLES Performing Organization Address City/State/[facility] Co de Phone Number [facility] [address] [place] [address] documented in this encounter Visit Diagnoses Not on filedocumented in this encounter Care Teams Acid Maker Relationship Specialty Start Date End Date Katia Stone, PABijalC [address] [place] [phone] PCP - General 05/02/17 documented as of this encounter
--- OUTSIDE RECORDS SUMMARY | 2023-12-22 18:14 | XMS_ITS | Encounter Summary ---
Author Organization [facility] Address [address] [place] [address] Care Team Providers Care Vending Machine Operator Name Role Phone Katia Stone PA-C Primary Care Provider +1- [phone] Reason for Visit * Reason Onset Date Comments Coordination Of Care 11/12/2019 Encounter Details Date Type Department Care Team (Late st Contact Info) Description 11/12/2019 Telephone [facility] Cardiology - [place] [address] Belinda Falk, TISH Coordination Of [...] RN - 11/12/2019 1036 EDT An from [employer] calling in to report that patient has had fallen 3 times yesterday. documented in this encounter Plan of Treatment Not on file documented as of this encounter Visit Diagnoses Not on filedocumented in this encounter Care Teams Vending Machine Operator Relationship Specialty Start Date End Date Katia Stone, BELLAC [address] [place] [phone] PCP - General 05/02/17 documented as of this encounter
--- OUTSIDE RECORDS SUMMARY | 2023-12-22 18:14 | XMS_ITS | Encounter Summary ---
Author Organization [facility] Address [address] [place] [address] Care Team Providers Care Manager Pricing Name Role Phone Katia Stone PA-C Primary Care Provider +1- [phone] Encounter Details Date Type Department Care Team (Late st Contact Info) Description 01/13/2020 Results Only [facility] [address] [place] [address] Unknown, Provider, Social History Tobacco Use Types [...] 136 - 145 mEq/L 01/13/2020 22:16 EST [facility] 01/13/2020 21:5 0 EST 01/13/2020 21:55 EST Narrative [facility] - 01/13/2020 22:26 EST Sample collected by ED but method of collection (IV Start or venipuncture) not indicated on sample. Provider Unknown CHEMISTRY & BLOOD GA S ORDERABLES [facility] [address] [place] [address] * TROPONIN I (01/13/2020 7:15 EST) Troponin I (ng/mL) <0.050 0 - 0.056 ng/ml 01/13/2020 7:52 EST [facility] Comment: Interpretation: The cutoff [...] 01/13/2020 7:15 EST 01/13/2020 7:18 EST Narrative [facility] - 01/13/2020 7:54 EST Sample [...] Unknown CHEMISTRY & BLOOD GA S ORDERABLES [facility] [address] [place] [address] * (ABNORMAL) SODIUM (01/13/2020 7:15 EST) [facility] Sodium 120(L) 136 - 145 mEq/L 01/13/2020 7:52 [facility] 01/13/2020 7:15 EST 01/13/2020 7:18 [facility] - 01/13/2020 7:54 EST [...] BLOOD GA S ORDERABLES Performing Organization Address [facility] de Phone Number [facility] [address] [place] [address] * OSMOLALITY,S PMC TEMP (01/13/2020 5:42 EST) [facility] OSMOLALITY,S 280 275 - 295 mOsm/kg 01/14/2020 18:37 [facility] Comment: Test Performed by: [place] [address] Sourcing Internship: Pierre Andersen M.D. Ph.D.; CLIA# [id number] 01/13/2020 5:42 EST 01/13/2020 5:52 [facility] - 01/14/2020 18:37 EST Sample collected by ED but method of collection (IV Start or venipuncture) not indicated on sample. Provider Unknown CHEMISTRY & BLOOD GA S ORDERABLES Performing Organization Address [facility] Co de Phone Number [facility] [address] [place] [address] * FOLATE (01/13/2020 5:42 EST) [facility] Folate 18.7 >8.6 ng/mL 01/13/2020 7:43 [facility] 01/13/2020 5:42 EST 01/13/2020 5:54 EST Provider Unknown CHEMISTRY & BLOOD GA S ORDERABLES Performing Organization Address [facility] Phone Number [facility] [address] [place] [address] * VITAMIN B12 (01/13/2020 5:42 EST) Vitamin B12 246 193 - 986 pg/mL 01/13/2020 7:43 [facility] Comment: The results of this assay can be falsely elevated due to the consumption of Biotin. 01/13/2020 5:42 EST 01/13/2020 5:54 EST Provider Unknown CHEMISTRY & BLOOD GA S ORDERABLES Performing Organization Address [facility] Number [facility] [address] [place] [address] * (ABNORMAL) IRON,TIBC,FERRITIN GROUP - PMC (01/13/2020 5:42 EST) Iron 178(H) 65 - 175 mcg/dL 01/13/2020 7:43 [facility] Iron Binding Capacity 193(L) 250 - 450 mcg/dL 01/13/2020 7:43 [facility] PERCENT IRON SATURATION - PMC 92(H) 14 - 50 % 01/13/2020 7:43 [facility] Ferritin >1,000(H) 26 - 388 ng/mL 01/13/2020 7:43 [facility] 01/13/2020 5:42 EST 01/13/2020 5:54 EST Provider Unknown CHEMISTRY & BLOOD GA S ORDERABLES Performing Organization Address [facility] [address]/[facility] Co de Phone Number [facility] [address] [place] [address] * PROTIME (01/13/2020 5:42 EST) Pro Time 11.1 9.0 - 12.3 SEC 01/13/2020 6:47 [facility] PROTHROMBIN TIME WITH INR - PMC 1.1 0.8 - 1.2 RATIO 01/13/2020 6:47 [facility] Comment: Interpretive Information: [...] reasons. 01/13/2020 5:42 EST 01/13/2020 5:55 EST [facility] - 01/13/2020 6:48 EST Sample collected by ED but method of collection (IV Start or venipuncture) not indicated on sample. Provider Unknown HEMATOLOGY & PF4 ORD ERABLES Performing Organization Address [facility] Phone Number [facility] [address] [place] [address] * THYROID CASCADE (01/13/2020 5:42 EST) TSH 1.958 0.360 - 3.740 mIU/L 01/13/2020 6:35 [facility] Comment: Note: This is a Third Generation Assay .......................................... The results of this assay can be falsely decreased due to the consumption of Biotin. 01/13/2020 5:42 EST 01/13/2020 5:51 EST [facility] - 01/13/2020 6:35 EST Sample collected by ED but method of collection (IV Start or venipuncture) not indicated on sample. Provider Unknown CHEMISTRY & BLOOD GA S ORDERABLES Performing Organization Address [facility] [address]/[facility] Co wi Phone Number [facility] [address] [place] [address] * (ABNORMAL) MAGNESIUM (01/13/2020 5:42 EST) Magnesium 1.4(L) 1.8 - 2.4 mg/dl 01/13/2020 6:35 [facility] 01/13/2020 5:42 EST 01/13/2020 5:51 [facility] - 01/13/2020 6:35 EST Sample collected by ED but method of collection (IV Start or venipuncture) not indicated on sample. Provider Unknown MD CHEMISTRY & BLOOD GA S ORDERABLES [facility] [address] [place] [address] * (ABNORMAL) HEPATIC & CMP COMBO,FASTING - PMC (01/13/2020 5:42 EST) Sodium 121(L) 136 - 145 mEq/L 01/13/2020 6:35 [facility] Potassium 4.1 3.5 - 5.1 mEq/L 01/13/2020 6:35 [facility] Chloride 87(L) 96 - 107 mEq/L 01/13/2020 6:35 [facility] CO2 Total 25.5 21 - 32 mEq/L 01/13/2020 6:35 [facility] Anion Gap 8.5 mEq/L 01/13/2020 6:35 [facility] BUN 4(L) 7 - 25 mg/dl 01/13/2020 6:35 [facility] Creatinine 0.60(L) 0.70 - 1.30 mg/dl 01/13/2020 6:35 [facility] Estimated GFR >60 >60 01/13/2020 6:35 [facility] Comment: EGFR UNITS: mL/min/1.73 m 2 CKD-EPI Equation used to calculate. Glucose 70 70 - 180 mg/dl 01/13/2020 6:35 [facility] Calcium 7.9(L) 8.5 - 10.1 mg/dl 01/13/2020 6:35 [facility] CALCIUM,CORRECTE D - PMC 8.9 8.5 - 10.5 mg/dl 01/13/2020 6:35 [facility] BILIRUBIN - PMC 0.70 0.00 - 1.00 mg/dl 01/13/2020 6:35 [facility] AST 56(H) 15 - 37 U/L 01/13/2020 6:35 [facility] ALT 38 16 - 63 U/L 01/13/2020 6:35 [facility] Alkaline Phosphatase 87 46 - 116 U/L 01/13/2020 6:35 [facility] Total Protein 6.8 6.4 - 8.2 g/dl 01/13/2020 6:35 [facility] Albumin 2.7(L) 3.4 - 5.0 g/dl 01/13/2020 6:35 [facility] GLOBULIN - PMC 4.1 g/dl 01/13/2020 6:35 [facility] ALBUMIN/GLOBULIN RATIO - PMC 0.6 01/13/2020 6:35 [facility] 01/13/2020 5:42 EST 01/13/2020 5:51 [facility] - 01/13/2020 6:35 EST Sample collected by ED but method of collection (IV Start or venipuncture) not indicated on sample. Provider Unknown CHEMISTRY & BLOOD GA S ORDERABLES Performing Organization Address City/State/[facility] Co de Phone Number [facility] [address] [place] [address] * (ABNORMAL) COMPLETE BLOOD COUNT AND DIFFERENTIAL (01/13/2020 5:42 EST) WBC 5.2 4.0 - 10.5 10 3/uL 01/13/2020 6:17 [facility] RBC 3.24(L) 4.70 - 6.00 10 6/uL 01/13/2020 6:17 [facility] Hemoglobin 11.3(L) 13.5 - 18.0 g/dL 01/13/2020 6:17 [facility] HCT 30.8(L) 42.0 - 52.0 % 01/13/2020 6:17 [facility] MCV 95.1 78 - 100 fL 01/13/2020 6:17 [facility] MCH 34.9(H) 27 - 31 pg 01/13/2020 6:17 [facility] MCHC 36.7(H) 32 - 36 g/dL 01/13/2020 6:17 [facility] RDW-CV - PMC 12.5 11.0 - 14.8 % 01/13/2020 6:17 [facility] PLATELET COUNT - PMC 161 150 - 450 10 3/uL 01/13/2020 6:17 [facility] NEUTROPHILS % (AUTO) - PMC 52.1 42.0 - 75.0 % 01/13/2020 6:17 [facility] LYMPHOCYTES % (AUTO) - PMC 30.5 16.0 - 52.0 % 01/13/2020 6:17 [facility] MONOCYTES % (AUTO) - PMC 13.8(H) 1.0 - 11.0 % 01/13/2020 6:17 [facility] EOSINOPHILS % (AUTO) - PMC 1.7 0.0 - 7.0 % 01/13/2020 6:17 [facility] BASOPHILS % (AUTO) - PMC 1.3 0.0 - 4.0 % 01/13/2020 6:17 [facility] NUCLEATED RBC % (AUTO) - PMC 0.0 <1 % 01/13/2020 6:17 [facility] NEUTROPHILS # (AUTO) - PMC 2.7 1.5 - 6.6 10 3/uL 01/13/2020 6:17 [facility] LYMPHOCYTES # (AUTO) - PMC 1.6 1.0 - 3.5 10 3/uL 01/13/2020 6:17 [facility] MONOCYTES # (AUTO) - PMC 0.7 <1.0 10 3/uL 01/13/2020 6:17 [facility] EOSINOPHILS # (AUTO) - PMC 0.1 <0.7 10 3/uL 01/13/2020 6:17 [facility] BASOPHILS # (AUTO) - PMC 0.1 <0.1 10 3/uL 01/13/2020 6:17 [facility] NUCLEATED RBC # (AUTO) - PMC 0.00 <1 10 3/uL 01/13/2020 6:17 [facility] 01/13/2020 5:42 EST 01/13/2020 5:55 EST Narrative [facility] - 01/13/2020 6:48 EST Sample collected by ED but method of collection (IV Start or venipuncture) not indicated on sample. Provider Unknown MD PACKAGES & DNA PROBE ORDERABLES [facility] [address] [place] [address] * OSMOLALITY, UR PMC TEMP (01/13/2020 1:57 EST) Osmolality, Ur 239 150 - 1150 mOsm/kg 01/14/2020 18:37 EST [facility] Comment: Test Performed by: [place] [address] Sourcing Internship: Pierre Andersen M.D. Ph.D.; CLIA# [id number] 01/13/2020 1:57 EST 01/13/2020 2:14 EST Provider Unknown CHEMISTRY & BLOOD GA S ORDERABLES Performing Organization Address City/[facility] [address]/ZIP Co de Phone Number [facility] [address] [place] [address] * UA MICROSCOPIC - PMC (01/13/2020 1:57 EST) URINE RBC - PMC None Seen 0 - 2 hpf 0 3:06 [facility] URINE WBC - PMC None seen 0 - 3 hpf 0 3:06 [facility] URINE BACTERIA - PMC None Seen None Seen hpf 01/13/2020 3:06 [facility] URINE MUCUS - PMC None Seen lpf 01/13/2020 3:06 [facility] URINE SQUAMOUS EPITHELIAL CELL - PMC None Seen None-Few hpf 01/13/2020 3:06 [facility] 01/13/2020 1:57 EST 01/13/2020 2:15 EST Narrative [facility] - 01/13/2020 3:07 EST Clean Catch Provider Unknown CHEMISTRY & BLOOD GA S ORDERABLES [facility] [address] [place] [address] * TROPONIN I (01/13/2020 1:57 EST) [facility] Troponin I (ng/mL) <0.050 0 - 0.056 ng/ml 01/13/2020 2:42 EST [facility] Comment: Interpretation: The cutoff [...] BLOOD GA S ORDERABLES Performing Organization Address [facility] [address]/[facility] Co de Phone Number [facility] [address] [place] [address] * (ABNORMAL) SODIUM (01/13/2020 1:57 EST) [facility] Sodium 118(CRIT LOW) 136 - 145 mEq/L 01/13/2020 2:59 EST [facility] Comment: Results called and read back to me by: Location: ER Full name: LEV JOSHUA Credentials: RN at 0258 on 01/13/20 by TESS. 01/13/2020 1:57 EST 01/13/2020 2:11 EST Provider Unknown CHEMISTRY & BLOOD GA S ORDERABLES [facility] [address] [place] [address] * (ABNORMAL) BNP - PMC (01/13/2020 1:57 EST) Pathologist [facility] B-TYPE NATRIURETIC PEPTIDE - PMC 549(H) <100 pg/mL 01/13/2020 2:36 EST [facility] 01/13/2020 1:57 EST 01/13/2020 2:12 EST Provider Unknown CHEMISTRY & BLOOD GA S ORDERABLES [facility] [address] [place] [address] * (ABNORMAL) UA (CULTURE IF POSITIVE) - PMC (01/13/2020 1:57 EST) URINE COLOR - PMC Yellow Straw/Yelow 01/13/2020 2:26 [facility] URINE APPEARANCE - PMC Clear Clr/Hazy 01/13/2020 2:26 [facility] URINE PH - PMC 6.0 5.0 - 9.0 01/13/2020 2:26 [facility] UR SPECIFIC GRAVITY (REFRACTOM) - PMC 1.006 1.001 - 1.035 01/13/2020 2:40 [facility] URINE PROTEIN - PMC Negative Negative mg/dL 01/13/2020 2:26 [facility] URINE GLUCOSE (UA) - PMC Negative Negative mg/dL 01/13/2020 2:26 [facility] URINE KETONES - PMC Trace(A) Negative mg/dL 01/13/2020 2:26 [facility] URINE BILIRUBIN - PMC Negative Negative 01/13/2020 2:26 [facility] URINE BLOOD - PMC Trace(A) Negative 01/13/2020 2:26 [facility] URINE UROBILINOGEN - PMC 0.2 0.2 - 1.0 E.U./dL 01/13/2020 2:26 [facility] URINE NITRATE - PMC Negative Negative 01/13/2020 2:26 [facility] URINE LEUKOCYTE ESTERASE - PMC Negative Negative 01/13/2020 2:26 [facility] URINE CULTURE COMMENTS - PMC CRITERIA NOT MET 01/13/2020 3:06 [facility] Comment:Specimen does not me et criteria for culture. 01/13/2020 1:57 EST 01/13/2020 2:15 EST [facility] - 01/13/2020 3:07 EST Clean Catch Provider Unknown MICROBIOLOGY - GENER AL ORDERABLES [facility] [address] [place] [address] * SODIUM, URINE RANDOM (01/13/2020 1:57 EST) Sodium, Urine 52 20 - 110 mEq/L 01/13/2020 2:35 EST [facility] 01/13/2020 1:57 EST 01/13/2020 2:14 EST Provider Unknown MD URINALYSIS ORDERABLE S Performing Organization Address City/State/[facility] Co de Phone Number [facility] [address] [place] [address] documented in this encounter Visit Diagnoses Not on filedocumented in this encounter Care Teams Manager Pricing Relationship Specialty Start Date End Date Katia Stone, PA-C [address] [place] [address] PCP - General 05/02/17 documented as of this encounter
--- OUTSIDE RECORDS SUMMARY | 2023-12-22 18:14 | XMS_ITS | Encounter Summary ---
Author Organization [facility] Address [address] [place] [address] Care Team Providers Care Director College Name Role Phone Katia Stone PA-C Primary Care Provider +1- [phone] Encounter Details Date Type Department Care Team (Late st Contact Info) Description 06/12/2018 Historical Results Only [facility] [address] [place], [place] [address] Katia Stone, MINGO [address] [place] [address] Social History Tobacco Use Types [...] Sodium 125(L) 136 - 145 06/12/2018 17:52 [facility] Potassium 5.0 3.5 - 5.1 06/12/2018 17:52 [facility] Chloride 89(L) 96 - 107 06/12/2018 17:52 [facility] CO2 Total 28.7 21 - 32 06/12/2018 17:52 [facility] Anion Gap 7.3 06/12/2018 17:52 [facility] BUN 8 7 - 25 06/12/2018 17:52 [facility] Creatinine 0.60(L) 0.7 - 1.30 06/12/2018 17:52 [facility] Estimated GFR >60 >60 06/12/2018 17:59 [facility] Comment: EGFR UNITS: mL/min/1.73 m 2 CKD-EPI Equation used to calculate. Glucose 84 70 - 180 06/12/2018 17:52 [facility] Calcium 8.2(L) 8.5 - 10.5 06/12/2018 17:52 [facility] CALCIUM,CORRECTE D - PMC 8.7 8.5 - 10.5 06/12/2018 17:52 [facility] BILIRUBIN - PMC 0.30 0.00 - 1.00 06/12/2018 17:52 [facility] AST 39(H) 15 - 37 06/12/2018 17:52 [facility] ALT 52 12 - 78 06/12/2018 17:52 [facility] Alkaline Phosphatase 93 46 - 116 06/12/2018 17:52 EDT [facility] Total Protein 7.1 6.4 - 8.2 06/12/2018 17:52 T [facility] Albumin 3.4 3.4 - 5.0 06/12/2018 17:52 T [facility] GLOBULIN - PMC 3.7 06/12/2018 17:52 T [facility] ALBUMIN/GLOBULIN RATIO - PMC 0.9 06/12/2018 17:52 T [facility] 06/12/2018 16:4 6 EDT 06/12/2018 16:47 EDT Katia Stone PA-C CHEMISTRY & BLOOD GAS ORDERABLES [facility] documented in this encounter Visit Diagnoses Not on filedocumented in this encounter Care Teams Director College Relationship Specialty Start Date End Date Katia Stone PA-C [address] [place] [phone] PCP - General 05/02/17 documented as of this encounter
--- OUTSIDE RECORDS SUMMARY | 2023-12-22 18:14 | XMS_ITS | Encounter Summary ---
Author Organization [facility] Address [address] [place] [address] Care Team Providers Care Furniture Upholstery Mechanic Name Role Phone Katia Stone PA-C Primary Care Provider +1- [phone] Reason for Visit * Reason Onset Date Comments Medication Questions 07/16/2017 Encounter Details Date Type Department Care Team (Late st Contact Info) Description 07/16/2017 Telephone [facility] Cardiology - [place] [address] [place] [address] Caitie Atwood, TAIWO [address] [facility] [address] [place] [address] Medication Questions Social History Tobacco [...] filedocumented in this encounter Care Teams Furniture Upholstery Mechanic Relationship Specialty Start Date End Date Katia Stone, MINGO [address] [place] [phone] PCP - General 05/02/17 documented as of this encounter
--- OUTSIDE RECORDS SUMMARY | 2023-12-22 18:14 | XMS_ITS | Encounter Summary ---
Author Organization [facility] Address [address] [place] [address] Care Team Providers Care Configuration Management Manager Name Role Phone Katia Stone PA-C Primary Care Provider +1- [phone] Reason for Visit * Reason Comments Arrhythmia Encounter Details Date Type Department Care Team (Late st Contact Info) Description 10/13/2019 16:00 EDT Office Visit [facility] [address] [address] Tony Rosenberg MD [address] [place] [phone] Heart block AV third degree (HCC-CMS) [...] file Gets together: Not on file Attends shinto service: Not on file Active member of [...] complete documented in this encounter Care Teams Configuration Management Manager Relationship Specialty Start Date End Date Katia Stone, PABijalC [address] [place] [phone] PCP - General 05/02/17 documented as of this encounter
--- OUTSIDE RECORDS SUMMARY | 2023-12-22 18:14 | XMS_ITS | Encounter Summary ---
Author Organization [facility] Address [address] [place] [address] Care Team Providers Care Crew Director Name Role Phone Katia Stone PA-C Primary Care Provider +1- [phone] Reason for Visit * Reason Onset Date Comments Coordination Of Care 11/30/2019 Follow-up 12/02/2019 Follow-up 12/22/2019 Pacemaker Problem 12/23/2019 Encounter Details Date Type Department Care Team (Late st Contact Info) Description 11/30/[address] [facility] Cardiology - [address] [place] [address] Tony Rosenberg MD [address] [place], [place] [address] [place] [address] Coordination Of Care; Follow-up; Follow-up; [...] Telephone Encounter - Tony Tim - 11/30/2019 3032 EDT Angela is calling to speak to [...] filedocumented in this encounter Care Teams Crew Director Relationship Specialty Start Date End Date Katia Stone, PABijalC [address] [place] [phone] PCP - General 05/02/17 documented as of this encounter
--- OUTSIDE RECORDS SUMMARY | 2023-12-22 18:14 | XMS_ITS | Encounter Summary ---
Author Organization [facility] Address [address] [place] [address] Care Team Providers Care Service Desk Lead Name Role Phone Katia Stone PA-C Primary Care Provider +1- [phone] Encounter Details Date Type Department Care Team (Late st Contact Info) Description 01/14/2020 Results Only [facility] [address] [place] [address] Unknown, Provider, Social History Tobacco Use Types [...] 11.2 9.0 - 12.3 SEC 01/14/2020 6:26 [facility] PROTHROMBIN TIME WITH INR - PMC 1.1 0.8 - 1.2 RATIO 01/14/2020 6:26 [facility] Comment: Interpretive Information: Moderate Intensity [...] reasons. 01/14/2020 5:30 EST 01/14/2020 5:54 EST [facility] - 01/14/2020 6:37 EST [...] Unknown MD HEMATOLOGY & PF4 ORD ERABLES [facility] [address] [place] [address] * (ABNORMAL) SODIUM (01/14/2020 2:07 EST) Sodium 121(L) 136 - 145 mEq/L 01/14/2020 2:30 [facility] 01/14/2020 2:07 EST 01/14/2020 2:[address] [facility] - 01/14/2020 2:41 EST Sample collected from saline lock with discard per protocol by non-laboratory staff. Provider Unknown CHEMISTRY & BLOOD GA S ORDERABLES Performing Organization Address City/State/[facility] Co de Phone Number [facility] [address] [place] [address] documented in this encounter Visit Diagnoses Not on filedocumented in this encounter Care Teams Service Desk Lead Relationship Specialty Start Date End Date Katia Stone, PABijalC [address] [place] [phone] PCP - General 05/02/17 documented as of this encounter
--- OUTSIDE RECORDS SUMMARY | 2023-12-22 18:14 | XMS_ITS | Encounter Summary ---
Author Organization [facility] Address [address] [place] [address] Care Team Providers Care Sales Administration Manager Name Role Phone Katia Stone PA-C Primary Care Provider +1- [phone] Encounter Details Date Type Department Care Team (Late st Contact Info) Description 06/18/2018 Historical Results Only [facility] [address] [place], [place] [address] Katia Stone, MINGO [address] [place] [address] Social History Tobacco Use Types [...] Sodium 125(L) 136 - 145 06/18/2018 13:02 [facility] Potassium 4.9 3.5 - 5.1 06/18/2018 13:02 [facility] Chloride 88(L) 96 - 107 06/18/2018 13:02 [facility] CO2 Total 27.6 21 - 32 06/18/2018 13:02 [facility] Anion Gap 8.4 06/18/2018 13:02 [facility] BUN 8 7 - 25 06/18/2018 13:02 [facility] Creatinine 0.69(L) 0.7 - 1.30 06/18/2018 13:02 [facility] Estimated GFR >60 >60 06/18/2018 13:03 [facility] Comment: EGFR UNITS: mL/min/1.73 m 2 CKD-EPI Equation used to calculate. Glucose 86 FASTIN -99 06/18/2018 13:02 [facility] Calcium 8.4(L) 8.5 - 10.5 06/18/2018 13:02 [facility] CALCIUM,CORRECTE D - PMC 8.9 8.5 - 10.5 06/18/2018 13:02 [facility] BILIRUBIN - PMC 0.60 0.00 - 1.00 06/18/2018 13:02 [facility] AST 63(H) 15 - 37 06/18/2018 13:02 [facility] ALT 58 12 - 78 06/18/2018 13:02 [facility] Alkaline Phosphatase 94 46 - 116 06/18/2018 13:02 EDT [facility] Total Protein 7.3 6.4 - 8.2 06/18/2018 13:02 [facility] Albumin 3.4 3.4 - 5.0 06/18/2018 13:02 [facility] GLOBULIN - PMC 3.9 06/18/2018 13:02 [facility] ALBUMIN/GLOBULIN RATIO - PMC 0.8 06/18/2018 13:02 [facility] 06/18/2018 12:1 4 EDT 06/18/2018 12:16 EDT Katia Stone PA-C CHEMISTRY & BLOOD GAS ORDERABLES [facility] documented in this encounter Visit Diagnoses Not on filedocumented in this encounter Care Teams Sales Administration Manager Relationship Specialty Start Date End Date Katia Stone PA-C [address] [place] [id number] PCP - General 05/02/17 documented as of this encounter
--- OUTSIDE RECORDS SUMMARY | 2023-12-22 18:14 | XMS_ITS | Encounter Summary ---
Author Organization [facility] Address [address] [place] [address] Care Team Providers Care Telephone Exchange Operator Name Role Phone Katia Stone PA-C Primary Care Provider +1- [phone] Encounter Details Date Type Department Care Team (Late st Contact Info) Description 12/12/2018 Results Only Imaging [facility] Radiology Results [address] [place] [address] Wang Vila MD [address] [facility], Level 1 [place] [address] Social History Tobacco Use Types [...] 22:1 5 EDT Narrative 12/12/2018 22:15 EDT ?[facility] ?[address] ?[place] [address] ?Diagnostic Imaging Report ? Signed ? Patient Name:ADOLPH,DAVID Martinez ? Date of :1950 ?MR Number:[id number] ? Age:68 ?Sex:M ? Category: CR ?Date [...] questions regarding this report, please contact the [facility] at [phone] ? Dictated by: Alma Sherwood DO ?D/ ?? 2215 ?? Transcribed by: GABE ?D/T: ? E-Signed by: Alma Sherwood DO ?D/ ?? 2327 ? Procedure Note Alma Sherwood MD - 01/09/2019 UVN: [address] [address] Diagnostic Imaging Report Signed Patient Name:DAVID FARFAN FAccount Number:[id number] Date of :1950 MRNumber:[id number] Age:68 Sex:M Category: CR Date ofExam:12/12/18 Procedure: CR: Chest; Frontal/LAT viewsAccession: [id number] Ordering Physician: Wang Vila MD CC: [...] questions regarding this report, please contact the [facility] at [phone] Dictated by: Alma Sherwood DOD/ 2217 Transcribed by: JOSEPH/T: E-Signed by: Alma Sherwood DOD/ 2445 Wang Vila MD IMG DIAGNOSTIC IMAGI NG ORDERABLES documented in this encounter Visit Diagnoses Not on filedocumented in this encounter Additional Health Concerns Infection Onset Date Last Indicated Resolved Time RSV 01/31/2022 01/31/2022 02/10/2022 22:1 5 EST documented as of this encounter Care Teams Telephone Exchange Operator Relationship Specialty Start Date End Date Katia Stone, MINGO [address] [place] [phone] PCP - General 05/02/17 documented as of this encounter
--- OUTSIDE RECORDS SUMMARY | 2023-12-22 18:14 | XMS_ITS | Encounter Summary ---
Author Organization [facility] Address [address] [place] [address] Care Team Providers Care Door Core Assembler Name Role Phone Katia Stone PA-C Primary Care Provider +1- [phone] Encounter Details Date Type Department Care Team (Late st Contact Info) Description 01/13/2020 Results Only [facility] [phone] Jayesh Olmos MD [address] [place] [address] Social History Tobacco Use Types Packs/Day [...] 136 - 145 mEq/L 01/13/2020 19:[address] [facility] 01/13/2020 18:5 0 EST 01/13/2020 18:52 EST Jayesh Olmos MD CHEMISTRY & BLO OD GAS ORDERABLES Performing Organization Address [facility] Co de Phone Number [facility] [address] [place] [address] * (ABNORMAL) SODIUM (01/13/2020 13:12 EST) Sodium 126(L) 136 - 145 mEq/L 01/13/2020 13:[address] [facility] 01/13/2020 13:1 2 EST 01/13/2020 13:15 EST Jayesh Olmos MD CHEMISTRY & BLO OD GAS ORDERABLES Performing Organization Address [facility] de Phone Number [facility] [address] [place] [address] documented in this encounter Visit Diagnoses Not on filedocumented in this encounter Care Teams Door Core Assembler Relationship Specialty Start Date End Date Katia Stone PA-C [address] [place] [phone] PCP - General 05/02/17 documented as of this encounter
--- OUTSIDE RECORDS SUMMARY | 2023-12-22 18:14 | XMS_ITS | Encounter Summary ---
Author Organization [facility] Address [address] [place] [address] Care Team Providers Care Candy Department Manager Name Role Phone Katia Stone PA-C Primary Care Provider +1- [phone] Encounter Details Date Type Department Care Team (Late st Contact Info) Description 01/12/2020 Results Only [facility] [address] [place] [address] Jayesh Olguin MD [address] [place] [address] Social History Tobacco Use [...] (01/12/2020 22:30 EST) POC CAPILLARY GLUCOSE - [facility] 102(H) 70 - 100 mg/dL 01/12/2020 22:59 EST [facility] 01/12/2020 22:3 0 EST 01/12/2020 22:58 EST Jayesh Olguin MD POINT OF CARE TEST ORDERABLES [facility] [address] [place] [address] * (ABNORMAL) ETHYL ALCOHOL LEVEL - PMC (01/12/2020 22:30 EST) ETHYL ALCOHOL LEVEL - [facility] 237.0(CRIT HIGH) <10 mg/dL 01/12/2020 23:47 EST [facility] Comment: Results called and read back to me by: Location: ED Full name: FERMIN FAROOQ Credentials: RN at 2346 on 01/12/20 by TESS. Medical Serum/Plasma Alcohol test reported in mg/dL. Example of unit conversion from mg/dL to percentage: ?80 mg/dL is equivalent to 0.08 % 01/12/2020 22:3 0 EST 01/12/2020 23:03 EST [facility] - 01/12/2020 23:47 EST Sample collected at time of saline lock or IV placement. Jayesh Olguin MD CHEMISTRY & BLOOD G ORDERABLES Performing Organization Address [facility] de Phone Number [facility] [address] [place] [address] * TROPONIN I (01/12/2020 22:30 EST) Pathologist [facility] Troponin I (ng/mL) <0.050 0 - 0.056 ng/ml 01/12/2020 23:32 EST [facility] Comment: Interpretation: The cutoff [...] 01/12/2020 22:3 0 EST 01/12/2020 23:03 EST [facility] - 01/12/2020 23:47 EST Sample collected at time of saline lock or IV placement. Jayesh Olguin MD CHEMISTRY & BLOOD G ORDERABLES Performing Organization Address [facility] Co de Phone Number [facility] [address] [place] [address] * (ABNORMAL) BASIC METABOLIC PANEL,RANDOM - PMC (01/12/2020 22:30 EST) Pathologist [facility] Sodium 116(CRIT LOW) 136 - 145 mEq/L 01/12/2020 23:33 [facility] Comment: Results called and read back to me by: Location: ED Full name: DEBBIE JOSHUA Credentials: RN at 2332 on 01/12/20 by TESS. Potassium 4.3 3.5 - 5.1 mEq/L 01/12/2020 23:32 [facility] Chloride 83(L) 96 - 107 mEq/L 01/12/2020 23:32 [facility] CO2 Total 24.6 21 - 32 mEq/L 01/12/2020 23:32 [facility] Anion Gap 10.4 mEq/L 01/12/2020 23:32 [facility] BUN 5(L) 7 - 25 mg/dl 01/12/2020 23:32 [facility] Creatinine 0.62(L) 0.70 - 1.30 mg/dl 01/12/2020 23:32 [facility] Estimated GFR >60 >60 01/12/2020 23:33 [facility] Comment: EGFR UNITS: mL/min/1.73 m 2 CKD-EPI Equation used to calculate. Glucose 89 70 - 180 mg/dl 01/12/2020 23:32 [facility] Calcium 8.2(L) 8.5 - 10.1 mg/dl 01/12/2020 23:32 [facility] 01/12/2020 22:3 0 EST 01/12/2020 23:03 [facility] - 01/12/2020 23:47 EST Sample collected at time of saline lock or IV placement. Jayesh Olguin MD CHEMISTRY & BLOOD G ORDERABLES Performing Organization Address City/State/[facility] Co de Phone Number [facility] [address] [place] [address] * (ABNORMAL) HEPATIC FUNCTION PANEL (ALB,ALK PHOS,ALT,AST,DBIL,TOT BOSSMAN,TOT PROT) (01/12/2020 22:30 EST) BILIRUBIN - PMC 0.60 0.00 - 1.00 mg/dl 01/12/2020 23:32 [facility] DIRECT BILIRUBIN - PMC 0.20 0.00 - 0.30 mg/dl 01/12/2020 23:32 [facility] INDIRECT BILIRUBIN - PMC 0.40 0.00 - 0.80 mg/dl 01/12/2020 23:32 [facility] AST 74(H) 15 - 37 U/L 01/12/2020 23:32 [facility] ALT 44 16 - 63 U/L 01/12/2020 23:32 [facility] Alkaline Phosphatase 103 46 - 116 U/L 01/12/2020 23:32 [facility] Total Protein 8.1 6.4 - 8.2 g/dl 01/12/2020 23:32 [facility] Albumin 3.3(L) 3.4 - 5.0 g/dl 01/12/2020 23:32 [facility] GLOBULIN - PMC 4.8 g/dl 01/12/2020 23:32 [facility] ALBUMIN/GLOBULIN RATIO - PMC 0.6 01/12/2020 23:32 [facility] 01/12/2020 22:3 0 EST 01/12/2020 23:03 [facility] - 01/12/2020 23:47 EST Sample collected at time of saline lock or IV placement. Jayesh Olguin MD CHEMISTRY & BLOOD G ORDERABLES [facility] [address] [place] [address] * (ABNORMAL) COMPLETE BLOOD COUNT AND DIFFERENTIAL (01/12/2020 22:30 EST) WBC 5.5 4.0 - 10.5 10 3/uL 01/12/2020 23:19 [facility] RBC 3.69(L) 4.70 - 6.00 10 6/uL 01/12/2020 23:19 [facility] Hemoglobin 12.8(L) 13.5 - 18.0 g/dL 01/12/2020 23:19 [facility] HCT 35.3(L) 42.0 - 52.0 % 01/12/2020 23:19 [facility] MCV 95.7 78 - 100 fL 01/12/2020 23:19 [facility] MCH 34.7(H) 27 - 31 pg 01/12/2020 23:19 [facility] MCHC 36.3(H) 32 - 36 g/dL 01/12/2020 23:19 [facility] RDW-CV - PMC 12.6 11.0 - 14.8 % 01/12/2020 23:19 [facility] PLATELET COUNT - PMC 182 150 - 450 10 3/uL 01/12/2020 23:19 [facility] NEUTROPHILS % (AUTO) - PMC 54.5 42.0 - 75.0 % 01/12/2020 23:19 [facility] LYMPHOCYTES % (AUTO) - PMC 29.0 16.0 - 52.0 % 01/12/2020 23:19 [facility] MONOCYTES % (AUTO) - PMC 12.6(H) 1.0 - 11.0 % 01/12/2020 23:19 [facility] EOSINOPHILS % (AUTO) - PMC 2.4 0.0 - 7.0 % 01/12/2020 23:19 [facility] BASOPHILS % (AUTO) - PMC 1.1 0.0 - 4.0 % 01/12/2020 23:19 [facility] NUCLEATED RBC % (AUTO) - PMC 0.0 <1 % 01/12/2020 23:19 [facility] NEUTROPHILS # (AUTO) - PMC 3.0 1.5 - 6.6 10 3/uL 01/12/2020 23:19 [facility] LYMPHOCYTES # (AUTO) - PMC 1.6 1.0 - 3.5 10 3/uL 01/12/2020 23:19 [facility] MONOCYTES # (AUTO) - PMC 0.7 <1.0 10 3/uL 01/12/2020 23:19 [facility] EOSINOPHILS # (AUTO) - PMC 0.1 <0.7 10 3/uL 01/12/2020 23:19 [facility] BASOPHILS # (AUTO) - PMC 0.1 <0.1 10 3/uL 01/12/2020 23:19 [facility] NUCLEATED RBC # (AUTO) - PMC 0.00 <1 10 3/uL 01/12/2020 23:19 [facility] 01/12/2020 22:3 0 EST 01/12/2020 23:04 EST Narrative [facility] - 01/12/2020 23:35 EST Sample collected at time of saline lock or IV placement. Jayesh Olguin MD PACKAGES & DNA PROB E ORDERABLES [facility] [address] [place] [address] documented in this encounter Visit Diagnoses Not on filedocumented in this encounter Care Teams Candy Department Manager Relationship Specialty Start Date End Date Katia Stone, PABijalC [address] [place] [phone] PCP - General 05/02/17 documented as of this encounter
--- OUTSIDE RECORDS SUMMARY | 2023-12-22 18:14 | XMS_ITS | Encounter Summary ---
Author Organization [facility] Address [address] [place] [address] Care Team Providers Care Aircraft Engineer Name Role Phone Katia Stone PA-C Primary Care Provider +1- [phone] Encounter Details Date Type Department Care Team (Late st Contact Info) Description 12/12/2018 Results Only [facility] [address] [place] [address] [place] [address] Wang Vila MD [address] [facility], [facility] [address] [place] [address] Social History Tobacco Use Types [...] Vila MD PACKAGES & DNA PROBE ORDERABLES [facility] documented in this encounter Visit Diagnoses Not on filedocumented in this encounter Care Teams Aircraft Engineer Relationship Specialty Start Date End Date Katia Stone PA-C [address] [place] [phone] PCP - General 05/02/17 documented as of this encounter
--- OUTSIDE RECORDS SUMMARY | 2023-12-22 18:14 | XMS_ITS | Encounter Summary ---
Author Organization [facility] Address [address] [place] [address] Care Team Providers Care Health Service Coordinator Name Role Phone Katia Stone PA-C Primary Care Provider +1- [phone] Reason for Visit * Reason Onset Date Comments Other 11/03/2019 pacemaker proble m Encounter Details Date Type Department Care Team (Late st Contact Info) Description 11/03/2019 Telephone [facility] Cardiology - [address] [place] [address] Tony Rosenberg MD [employer] [facility] [address] [place] [address] Other (pacemaker problem) Social History [...] Dr. Rosenberg. Needs to be done at [facility] when we have the lead extraction program up and running. Will keep you posted. JW Nila expressed understanding, she mentioned patient is anxious and would like to have more information regarding next steps. * Telephone Encounter - Marilyn Escoto - 11/03/2019 1017 EDT Spoke with Nila at [employer], she is wondering about update in regards to plan for lead revision. Nila asks for an update you can reach her at [phone] extension [phone] Please advise * Telephone Encounter - Jada Ochoa - 11/03/2019 1015 EDT Patient's pacemaker has been shocking him. documented in this encounter Plan of Treatment Not on file documented as of this encounter Visit Diagnoses Not on filedocumented in this encounter Care Teams Health Service Coordinator Relationship Specialty Start Date End Date Katia Stone PA-C [address] [place] [address] PCP - General 05/02/17 documented as of this encounter
--- OUTSIDE RECORDS SUMMARY | 2023-12-22 18:14 | XMS_ITS | Encounter Summary ---
Author Organization [facility] Address [address] [place] [address] Care Team Providers Care Shirt Turner Name Role Phone Katia Stone PA-C Primary Care Provider +1- [phone] Encounter Details Date Type Department Care Team (Late st Contact Info) Description 06/25/2018 Historical Results Only [facility] [address] [place] [address] [place], [place] [address] Leonard Crespo MD [address] [place] [address],[address] [place], [place] [phone] Social History Tobacco Use Types Packs/Day Years [...] IGE - PMC <0.35 06/29/2018 15:54 EDT [facility] Comment: Class 0 (Negative <0.35) Test Performed by: [place] [address] 06/25/2018 18:5 0 EDT 06/25/2018 18:56 EDT Leonard Crespo MD CHEMISTRY & BLOOD GA S ORDERABLES [facility] * ENGLISH MAXWELL IGE - PMC (06/25/2018 18:50 EDT) ENGLISH MAXWELL IGE <0.35 06/29/2018 15:54 EDT [facility] Comment: Class 0 (Negative <0.35) Test Performed by: [address] [id number] 06/25/2018 18:5 0 EDT 06/25/2018 18:56 EDT Leonard Crespo MD CHEMISTRY & BLOOD GA S ORDERABLES [facility] * HOUSE DUST MITES/D.P., IGE - PMC (06/25/2018 18:50 EDT) HOUSE DUST MITES/D.P., IGE - PMC <0.35 06/29/2018 15:54 EDT [facility] Comment: Class 0 (Negative <0.35) Test Performed by: [address] [id number] 06/25/2018 18:5 0 EDT 06/25/2018 18:56 EDT Leonard Crespo MD CHEMISTRY & BLOOD GA S ORDERABLES Performing Organization Address City/[facility]/ZIP Co de Phone Number [facility] * [facility] ALLERGEN,S - PMC (06/25/2018 18:50 EDT) ALTERNARIA TENUIS, IGE - PMC <0.35 06/29/2018 15:54 [facility] Comment:Class 0 (Negative <0 .35) CLAD - PMC <0.35 06/29/2018 15:54 [facility] Comment:Class 0 (Negative <0 .35) HOUSE DUST MITE/D.F., IGE <0.35 06/29/2018 15:54 EDT [facility] Comment: Class 0 (Negative <0.35) Test Performed by: [facility] - [address] [address] CAT - PMC <0.35 06/29/2018 15:54 [facility] Comment:Class 0 (Negative <0 .35) DOG DANDER, IGE - PMC <0.35 06/29/2018 15:54 [facility] Comment:Class 0 (Negative <0 .35) YAYA GRASS IGE - PMC <0.35 06/29/2018 15:54 [facility] Comment:Class 0 (Negative <0 .35) LAMBS QUARTER, IGE - PMC <0.35 06/29/2018 15:54 [facility] Comment:Class 0 (Negative <0 .35) OAK - PMC <0.35 06/29/2018 15:54 [facility] Comment:Class 0 (Negative <0 .35) RAGWEED, SHORT, IGE - PMC <0.35 06/29/2018 15:54 [facility] Comment:Class 0 (Negative <0 .35) CONNER GRASS, IGE - PMC <0.35 06/29/2018 15:54 [facility] Comment:Class 0 (Negative <0 .35) 06/25/2018 18:5 0 EDT 06/25/2018 18:56 EDT Leonard Crespo MD CHEMISTRY & BLOOD GA S ORDERABLES [facility] * (ABNORMAL) HEPATIC & CMP COMBO,FASTING - PMC (06/25/2018 18:50 EDT) Sodium 130(L) 136 - 145 06/25/2018 19:38 [facility] Potassium 4.3 3.5 - 5.1 06/25/2018 19:38 [facility] Chloride 93(L) 96 - 107 06/25/2018 19:38 [facility] CO2 Total 26.4 21 - 32 06/25/2018 19:38 [facility] Anion Gap 10.6 06/25/2018 19:38 [facility] BUN 15 7 - 25 06/25/2018 19:38 [facility] Creatinine 0.86 0.7 - 1.30 06/25/2018 19:38 [facility] Estimated GFR >60 >60 06/25/2018 19:38 [facility] Comment: EGFR UNITS: mL/min/1.73 m 2 CKD-EPI Equation used to calculate. Glucose 89 FASTIN -99 06/25/2018 19:38 [facility] Calcium 8.6 8.5 - 10.5 06/25/2018 19:38 [facility] CALCIUM,CORRECTE D - PMC 9.0 8.5 - 10.5 06/25/2018 19:38 [facility] BILIRUBIN - PMC 0.30 0.00 - 1.00 06/25/2018 19:38 [facility] AST 55(H) 15 - 37 06/25/2018 19:38 [facility] ALT 65 12 - 78 06/25/2018 19:38 [facility] Alkaline Phosphatase 115 46 - 116 06/25/2018 19:38 [facility] Total Protein 7.5 6.4 - 8.2 06/25/2018 19:38 [facility] Albumin 3.5 3.4 - 5.0 06/25/2018 19:38 [facility] GLOBULIN - PMC 4.0 06/25/2018 19:38 [facility] ALBUMIN/GLOBULIN RATIO - PMC 0.8 06/25/2018 19:38 [facility] 06/25/2018 18:5 0 EDT 06/25/2018 18:56 EDT Leonard Crespo MD CHEMISTRY & BLOOD GA S ORDERABLES [facility] documented in this encounter Visit Diagnoses Not on filedocumented in this encounter Care Teams Shirt Turner Relationship Specialty Start Date End Date Katia Stone, PABijalC [address] [place] [phone] PCP - General 05/02/17 documented as of this encounter
--- OUTSIDE RECORDS SUMMARY | 2023-12-22 18:14 | XMS_ITS | Encounter Summary ---
Author Organization [facility] Address [address] [place] [address] Care Team Providers Care Attractions Associate Name Role Phone Katia Stone PA-C Primary Care Provider +1- [phone] Encounter Details Date Type Department Care Team (Late st Contact Info) Description 01/16/[address] [facility] Radiology Results [address] [place] [address] Jayesh Olmos MD [address] [place] [address] Social History Tobacco Use Types [...] 13:1 9 EST Narrative 01/16/2020 13:19 EST [facility] ?[address] ?[place] [address] ?Diagnostic Imaging Report ? Signed ? Patient Name:DAVID FARFAN ? Date of :1950 ?MR Number:[id number] ? Age:69 ?Sex:M ? Category: CT ?Date [...] questions regarding this report, please contact the [facility] at [phone] ? Dictated by: Brenda Dixon MD ?D/ ?? 1319 ?? Transcribed by: SERGEY ?D/T: ? E-Signed by: Brenda Dixon MD ?D/ ?? 1528 ?? Procedure Note Brenda Dixon MD - 02/01/2020 [facility]: [address] [address] Diagnostic Imaging Report Signed Patient Name:DAVID FARFAN FAccount Number:[id number] Date of :1950 MRNumber:[id number] Age:69 Sex:M Category: CT Date ofExam:01/16/20 Procedure: CT: Thorax; with contrastAccession: [id number] Ordering Physician: Nickolas ([facility])Jayesh [...] Pleural space: Loculated left pleural effusion posterolaterally [id number] by 5.4 cm in greatest transverse dimension. [...] regarding this report, please contact the [facility] at [phone] Dictated by: Brenda Dixon MDD/ 1319 Transcribed by: ANA/T: E-Signed by: Brenda Dixon MDD/ 1528 Jayesh Olmos MD IMG CT ORDERABL ES * XR CHEST 2 VIEWS (01/16/2020 9:51 EST) Anatomical Region Laterality Modality Computed Radiogr aphy 01/16/2020 9:51 EST Narrative 01/16/2020 9:51 EST ?[facility] ?[address] ?[place] [address] ?Diagnostic Imaging Report ? Signed ? Patient Name:DAVID FARFAN ? Date of :1950 ?MR Number:[id number] ? Age:69 ?Sex:M ? Category: CR ?Date [...] questions regarding this report, please contact the [facility] at [phone] ? Dictated by: Brenda Dixon MD ?D/ ?? 0951 ?? Transcribed by: SERGEY ?D/T: ? E-Signed by: Brenda Dixon MD ?D/ ?? 1121 ?? Procedure Note Brenda Dixon MD - 02/01/2020 [facility]: [address] [address] Diagnostic Imaging Report Signed Patient Name:DAVID FARFAN FAccount Number:[id number] Date of :1950 MRNumber:[id number] Age:69 Sex:M Category: CR Date ofExam:01/16/20 Procedure: CR: Chest; Frontal/LAT viewsAccession: [id number] Ordering Physician: Nickolas ([facility] [...] regarding this report, please contact the [facility] at [phone] Dictated by: Brenda Dixon/ 0951 Transcribed by: ANA/T: E-Signed by: Brenda Dixon MDD/ 1121 Jayesh Olmos MD IMG DIAGNOSTIC IMAGING ORDERABLES documented in this encounter Visit Diagnoses Not on filedocumented in this encounter Additional Health Concerns Infection Onset Date Last Indicated Resolved Time RSV 01/31/2022 01/31/2022 02/10/2022 22:1 5 EST documented as of this encounter Care Teams Attractions Associate Relationship Specialty Start Date End Date Katia Stone, PABijalC [address] [place] [phone] PCP - General 05/02/17 documented as of this encounter
--- OUTSIDE RECORDS SUMMARY | 2023-12-22 18:14 | XMS_ITS | Encounter Summary ---
Author Organization [facility] Address [address] [place] [address] Care Team Providers Care Infectious Diseases Physician Name Role Phone Katia Stone PA-C Primary Care Provider +1- [phone] Encounter Details Date Type Department Care Team (Late st Contact Info) Description 08/13/2018 Historical Results Only [facility] [address] [place], [place] [address] Katia Stone, MINGO [address] [place] [address] Social History Tobacco Use Types [...] Sodium 125(L) 136 - 145 08/13/2018 12:52 [facility] Potassium 4.9 3.5 - 5.1 08/13/2018 12:52 [facility] Chloride 91(L) 96 - 107 08/13/2018 12:52 [facility] CO2 Total 25.4 21 - 32 08/13/2018 12:52 [facility] Anion Gap 8.6 08/13/2018 12:52 [facility] BUN 7 7 - 25 08/13/2018 12:52 [facility] Creatinine 0.59(L) 0.7 - 1.30 08/13/2018 12:52 [facility] Estimated GFR >60 >60 08/13/2018 12:53 [facility] Comment: EGFR UNITS: mL/min/1.73 m 2 CKD-EPI Equation used to calculate. Glucose 88 FASTIN -99 08/13/2018 12:52 [facility] Calcium 8.1(L) 8.5 - 10.5 08/13/2018 12:52 [facility] CALCIUM,CORRECTE D - PMC 8.7 8.5 - 10.5 08/13/2018 12:52 [facility] BILIRUBIN - PMC 0.20 0.00 - 1.00 08/13/2018 12:52 [facility] AST 40(H) 15 - 37 08/13/2018 12:52 [facility] ALT 45 12 - 78 08/13/2018 12:52 [facility] Alkaline Phosphatase 112 46 - 116 08/13/2018 12:52 EDT [facility] Total Protein 7.1 6.4 - 8.2 08/13/2018 12:52 [facility] Albumin 3.2(L) 3.4 - 5.0 08/13/2018 12:52 T [facility] GLOBULIN - PMC 3.9 08/13/2018 12:52 T [facility] ALBUMIN/GLOBULIN RATIO - PMC 0.8 08/13/2018 12:52 T [facility] 08/13/2018 11:2 8 EDT 08/13/2018 11:37 EDT Katia Stone PA-C CHEMISTRY & BLOOD GAS ORDERABLES [facility] documented in this encounter Visit Diagnoses Not on filedocumented in this encounter Care Teams Infectious Diseases Physician Relationship Specialty Start Date End Date Katia Stone PA-C [address] [place] [phone] PCP - General 05/02/17 documented as of this encounter
--- OUTSIDE RECORDS SUMMARY | 2023-12-22 18:14 | XMS_ITS | Encounter Summary ---
Author Organization [facility] Address [address] [place] [address] Care Team Providers Care Gun Stock Maker Name Role Phone Katia Stone PA-C Primary Care Provider +1- [phone] Encounter Details Date Type Department Care Team [...] filedocumented in this encounter Care Teams Gun Stock Maker Relationship Specialty Start Date End Date Katia Stone, BELLAC [address] [place] [phone] PCP - General 05/02/17 documented as of this encounter
--- OUTSIDE RECORDS SUMMARY | 2023-12-22 18:14 | XMS_ITS | Encounter Summary ---
Author Organization [facility] Address [address] [place] [address] Care Team Providers Care Lone Lead Lineman Name Role Phone Katia Stone PA-C Primary Care Provider +1- [phone] Encounter Details Date Type Department Care Team (Late st Contact Info) Description 01/16/2020 Results Only [facility] [address] [place] [address] Unknown, Provider, Social History Tobacco Use Types [...] 129(L) 136 - 145 mEq/L 01/16/2020 7:26 [facility] Potassium 3.8 3.5 - 5.1 mEq/L 01/16/2020 7:26 [facility] Chloride 95(L) 96 - 107 mEq/L 01/16/2020 7:26 [facility] CO2 Total 27.5 21 - 32 mEq/L 01/16/2020 7:26 [facility] Anion Gap 7.5 mEq/L 01/16/2020 7:26 [facility] BUN 10 7 - 25 mg/dl 01/16/2020 7:26 [facility] Creatinine 0.64(L) 0.70 - 1.30 mg/dl 01/16/2020 7:26 [facility] Estimated GFR >60 >60 01/16/2020 7:29 [facility] Comment: EGFR UNITS: mL/min/1.73 m 2 CKD-EPI Equation used to calculate. Glucose 91 74 - 106 mg/dl 01/16/2020 7:26 [facility] Calcium 8.4(L) 8.5 - 10.1 mg/dl 01/16/2020 7:26 [facility] 01/16/2020 7:07 EST 01/16/2020 7:09 EST Provider Unknown CHEMISTRY & BLOOD GA S ORDERABLES Performing Organization Address City/State/[facility] Co de Phone Number [facility] [address] [place] [address] documented in this encounter Visit Diagnoses Not on filedocumented in this encounter Care Teams Lone Lead Lineman Relationship Specialty Start Date End Date Katia Stone, MINGO [address] [place] [phone] PCP - General 05/02/17 documented as of this encounter
--- OUTSIDE RECORDS SUMMARY | 2023-12-22 18:14 | XMS_ITS | Encounter Summary ---
Author Organization [facility] Address [address] [place] [address] Care Team Providers Care Trouble Operator Name Role Phone Katia Stone PA-C Primary Care Provider +1- [phone] Reason for Visit * Reason Onset Date Comments Follow-up 12/23/2019 TE 11/02 Encounter Details Date Type Department Care Team (Late st Contact Info) Description 12/23/2019 Telephone [facility] - [address] [place], [place] [id number] Tony Rosenberg MD [address] [place] [address] [address] [place] [address] Follow-up (TE 11/02) Social History [...] on filedocumented in this encounter Care Teams Trouble Operator Relationship Specialty Start Date End Date Katia Stone, PABijalC [address] [place] [phone] PCP - General 05/02/17 documented as of this encounter
--- OUTSIDE RECORDS SUMMARY | 2023-12-22 18:14 | XMS_ITS | Encounter Summary ---
Author Organization [facility] Address [address] [place] [address] Care Team Providers Care Career Technical Counselor Name Role Phone Katia Stone PA-C Primary Care Provider +1- [phone] Encounter Details Date Type Department Care Team (Late st Contact Info) Description 01/14/2020 Results Only [facility] [phone] Jayesh Olmos MD [address] [place] [phone] Social History Tobacco Use Types Packs/Day [...] BLO OD GAS ORDERABLES Performing Organization Address [facility] Co de Phone Number [facility] [address] [place] [address] * (ABNORMAL) SODIUM (01/14/2020 14:55 EST) Sodium 125(L) 136 - 145 mEq/L 01/14/2020 15:17 EST [facility] 01/14/2020 14:5 5 EST 01/14/2020 14:59 EST Jayesh Olmos MD CHEMISTRY & BLO OD GAS ORDERABLES Performing Organization Address [facility]/ZIP Co de Phone Number [facility] [address] [place] [address] * (ABNORMAL) COMPLETE BLOOD COUNT (01/14/2020 5:30 EST) WBC 5.2 4.0 - 10.5 10 3/uL 01/14/2020 6:25 [facility] RBC 3.29(L) 4.70 - 6.00 10 6/uL 01/14/2020 6:25 [facility] Hemoglobin 11.5(L) 13.5 - 18.0 g/dL 01/14/2020 6:25 [facility] HCT 31.5(L) 42.0 - 52.0 % 01/14/2020 6:25 [facility] MCV 95.7 78 - 100 fL 01/14/2020 6:25 [facility] MCH 35.0(H) 27 - 31 pg 01/14/2020 6:25 [facility] MCHC 36.5(H) 32 - 36 g/dL 01/14/2020 6:25 [facility] RDW-CV - PMC 13.1 11.0 - 14.8 % 01/14/2020 6:25 [facility] PLATELET COUNT - PMC 156 150 - 450 10 3/uL 01/14/2020 6:25 [facility] 01/14/2020 5:30 EST 01/14/2020 5:54 [facility] - 01/14/2020 6:37 EST [...] PF 4 ORDERABLES [facility] [address] [place] [address] * MAGNESIUM (01/14/2020 5:30 EST) Magnesium 2.0 1.8 - 2.4 mg/dl 01/14/2020 6:30 [facility] 01/14/2020 5:30 EST 01/14/2020 5:54 EST [facility] - 01/14/2020 6:33 EST Sample collected [...] OD GAS ORDERABLES [facility] [address] [place] [address] * (ABNORMAL) BASIC METABOLIC PANEL,RANDOM - PMC (01/14/2020 5:30 EST) Sodium 122(L) 136 - 145 mEq/L 01/14/2020 6:30 [facility] Potassium 4.0 3.5 - 5.1 mEq/L 01/14/2020 6:30 [facility] Chloride 89(L) 96 - 107 mEq/L 01/14/2020 6:30 [facility] CO2 Total 28.1 21 - 32 mEq/L 01/14/2020 6:30 [facility] Anion Gap 5.9 mEq/L 01/14/2020 6:30 [facility] BUN 11 7 - 25 mg/dl 01/14/2020 6:30 [facility] Creatinine 0.71 0.70 - 1.30 mg/dl 01/14/2020 6:30 [facility] Estimated GFR >60 >60 01/14/2020 6:30 [facility] Comment: EGFR UNITS: mL/min/1.73 m 2 CKD-EPI Equation used to calculate. Glucose 101 70 - 180 mg/dl 01/14/2020 6:30 [facility] Calcium 8.2(L) 8.5 - 10.1 mg/dl 01/14/2020 6:30 [facility] 01/14/2020 5:30 EST 01/14/2020 5:54 EST [facility] - 01/14/2020 6:33 EST Sample collected [...] OD GAS ORDERABLES [facility] [address] [place] [address] documented in this encounter Visit Diagnoses Not on filedocumented in this encounter Care Teams Career Technical Counselor Relationship Specialty Start Date End Date Katia Stone, PARosanna [address] [place] [phone] PCP - General 05/02/17 documented as of this encounter
--- OUTSIDE RECORDS SUMMARY | 2023-12-22 18:14 | XMS_ITS | Encounter Summary ---
Author Organization [facility] Address [address] [place] [address] Care Team Providers Care Specimen Preparation Assistant Name Role Phone Katia Stone PA-C Primary Care Provider +1- [phone] Encounter Details Date Type Department Care Team (Late st Contact Info) Description 05/28/2018 Historical Results Only [facility] Results [address] [place], [place] [address] Haja Richmond MD [address] [place] [phone] Social History Tobacco Use Types Packs/Day [...] - PMC 129(H) <100 05/28/2018 1:18 EDT [facility] 05/28/2018 0:45 EDT 05/28/2018 0:55 EDT Haja Richmond MD CHEMISTRY & BLOOD G ORDERABLES [facility] * (ABNORMAL) COMPLETE BLOOD COUNT AND DIFFERENTIAL (05/28/2018 0:45 EDT) WBC 10.2 4.0 - 10.5 05/28/2018 0:59 EDT [facility] RBC 3.77(L) 4.70 - 6.00 05/28/2018 0:59 EDT [facility] Hemoglobin 12.7(L) 13.5 - 18.0 05/28/2018 0:59 EDT [facility] HCT 35.3(L) 42.0 - 52.0 05/28/2018 0:59 EDT [facility] MCV 93.6 78 - 100 05/28/2018 0:59 [facility] MCH 33.7(H) 27 - 31 05/28/2018 0:59 [facility] MCHC 36.0 32 - 36 05/28/2018 0:59 [facility] RDW-CV - PMC 12.0 11.5 - 14.0 05/28/2018 0:59 [facility] PLATELET COUNT - PMC 306 150 - 450 05/28/2018 0:59 [facility] NEUTROPHILS % (AUTO) - PMC 76.5(H) 42.0 - 75.0 05/28/2018 0:59 [facility] LYMPHOCYTES % (AUTO) - PMC 14.0(L) 16.0 - 52.0 05/28/2018 0:59 [facility] MONOCYTES % (AUTO) - PMC 7.9 1.0 - 11.0 05/28/2018 0:59 [facility] EOSINOPHILS % (AUTO) - PMC 0.2 0.0 - 7.0 05/28/2018 0:59 [facility] BASOPHILS % (AUTO) - PMC 0.2 0.0 - 4.0 05/28/2018 0:59 [facility] NUCLEATED RBC % (AUTO) - PMC 0.0 <1 05/28/2018 0:59 [facility] NEUTROPHILS # (AUTO) - PMC 7.8(H) 1.5 - 6.6 05/28/2018 0:59 [facility] LYMPHOCYTES # (AUTO) - PMC 1.4 1.0 - 3.5 05/28/2018 0:59 [facility] MONOCYTES # (AUTO) - PMC 0.8 <1.0 05/28/2018 0:59 [facility] EOSINOPHILS # (AUTO) - PMC 0.0 <0.7 05/28/2018 0:59 [facility] BASOPHILS # (AUTO) - PMC 0.0 <0.1 05/28/2018 0:59 [facility] NUCLEATED RBC # (AUTO) - PMC 0.00 <1 05/28/2018 0:59 [facility] 05/28/2018 0:45 EDT 05/28/2018 0:55 EDT Haja Richmond MD PACKAGES & DNA PROB E ORDERABLES Performing Organization Address [facility]/ZIP Co de Phone Number [facility] * TROPONIN I (05/28/2018 0:45 EDT) [facility] Troponin I (ng/mL) <0.05 <0.10 05/28/2018 1:23 EDT [facility] Comment: REFERENCE RANGE: Negative: ? <0.10 ng/mL Indeterminate: 0.10-0.80 ng/mL Positive: ? >0.80 ng/mL ........................................... The results of this assay can be falsely decreased due to the consumption of Biotin. 05/28/2018 0:45 EDT 05/28/2018 0:56 EDT Haja Richmond MD CHEMISTRY & BLOOD G ORDERABLES Performing Organization Address [facility] Co de Phone Number [facility] * (ABNORMAL) HEPATIC & CMP COMBO,FASTING - PMC (05/28/2018 0:45 EDT) [facility] Sodium 120(L) 136 - 145 05/28/2018 1:21 [facility] Potassium 4.0 3.5 - 5.1 05/28/2018 1:21 [facility] Chloride 83(L) 96 - 107 05/28/2018 1:21 [facility] CO2 Total 25.9 21 - 32 05/28/2018 1:21 [facility] Anion Gap 11.1 05/28/2018 1:21 [facility] BUN 6(L) 7 - 25 05/28/2018 1:21 [facility] Creatinine 0.60(L) 0.7 - 1.30 05/28/2018 1:21 [facility] Estimated GFR >60 >60 05/28/2018 1:25 [facility] Comment: EGFR UNITS: mL/min/1.73 m 2 CKD-EPI Equation used to calculate. Glucose 122 70 - 180 05/28/2018 1:21 [facility] Calcium 9.1 8.5 - 10.5 05/28/2018 1:21 [facility] CALCIUM,CORRECTE D - PMC 9.8 8.5 - 10.5 05/28/2018 1:21 [facility] BILIRUBIN - PMC 0.30 0.00 - 1.00 05/28/2018 1:21 [facility] AST 90(H) 15 - 37 05/28/2018 1:21 [facility] ALT 87(H) 12 - 78 05/28/2018 1:21 [facility] Alkaline Phosphatase 89 46 - 116 05/28/2018 1:21 [facility] Total Protein 8.3(H) 6.4 - 8.2 05/28/2018 1:21 [facility] Albumin 3.1(L) 3.4 - 5.0 05/28/2018 1:21 [facility] GLOBULIN - PMC 5.2 05/28/2018 1:21 [facility] ALBUMIN/GLOBULIN RATIO - PMC 0.5 05/28/2018 1:21 [facility] 05/28/2018 0:45 EDT 05/28/2018 0:56 EDT Haja Raulito Richmond MD CHEMISTRY & BLOOD G ORDERABLES [facility] * XR CHEST 2 VIEWS (05/28/2018 0:11 EDT) Anatomical Region Laterality Modality Other 05/28/2018 0:11 EDT Narrative 05/28/2018 0:11 EDT [facility]: [address] [address] Diagnostic Imaging Report Signed Patient Name:DAVID FARFAN ? Date of :1950 ? MR Number:[id number] Age:67 ?Sex:M Category: CR ? Date of [...] Procedure Note Alma Sherwood MD - 02[facility]04/2019 [facility] [place] [address] Diagnostic Imaging Report Signed Patient Name:DAVID FARFAN Number:[id number] Date of :1950 MRNumber:[id number] Age:67 Sex:M Category: CR Date ofExam:05/28/18 Procedure: CR: Chest; Frontal/LAT viewsAccession: [id number] Ordering Physician: Haja Richmond MD CC: Haja [...] documented as of this encounter Care Teams Specimen Preparation Assistant Relationship Specialty Start Date End Date Katia Stone, MINGO [address] [place] [phone] PCP - General 05/02/17 documented as of this encounter
--- OUTSIDE RECORDS SUMMARY | 2023-12-22 18:14 | XMS_ITS | Encounter Summary ---
Author Organization [facility] Address [address] [place] [address] Care Team Providers Care Insole Coverer Name Role Phone Katia Stone PA-C Primary Care Provider +1- [phone] Encounter Details Date Type Department Care Team (Late st Contact Info) Description 08/20/2018 Historical Results Only [facility] [address] [place], [place] [address] Katia Stone, MINGO [address] [place] [address] Social History Tobacco Use Types [...] Sodium 121(L) 136 - 145 08/20/2018 12:38 [facility] Potassium 4.7 3.5 - 5.1 08/20/2018 12:38 [facility] Chloride 87(L) 96 - 107 08/20/2018 12:38 [facility] CO2 Total 28.2 21 - 32 08/20/2018 12:38 [facility] Anion Gap 5.8 08/20/2018 12:38 [facility] BUN 7 7 - 25 08/20/2018 12:38 [facility] Creatinine 0.59(L) 0.7 - 1.30 08/20/2018 12:38 [facility] Estimated GFR >60 >60 08/20/2018 12:49 [facility] Comment: EGFR UNITS: mL/min/1.73 m 2 CKD-EPI Equation used to calculate. Glucose 88 FASTIN -99 08/20/2018 12:38 [facility] Calcium 8.6 8.5 - 10.5 08/20/2018 12:38 [facility] CALCIUM,CORRECTE D - PMC 9.0 8.5 - 10.5 08/20/2018 12:38 [facility] BILIRUBIN - PMC 0.60 0.00 - 1.00 08/20/2018 12:38 [facility] AST 41(H) 15 - 37 08/20/2018 12:38 [facility] ALT 47 12 - 78 08/20/2018 12:38 [facility] Alkaline Phosphatase 86 46 - 116 08/20/2018 12:38 EDT [facility] Total Protein 7.5 6.4 - 8.2 08/20/2018 12:38 [facility] Albumin 3.5 3.4 - 5.0 08/20/2018 12:38 [facility] GLOBULIN - PMC 4.0 08/20/2018 12:38 [facility] ALBUMIN/GLOBULIN RATIO - PMC 0.8 08/20/2018 12:38 [facility] 08/20/2018 11:4 8 EDT 08/20/2018 12:07 EDT Katia Stone PA-C CHEMISTRY & BLOOD GAS ORDERABLES [facility] documented in this encounter Visit Diagnoses Not on filedocumented in this encounter Care Teams Insole Coverer Relationship Specialty Start Date End Date Katia Stone PA-C [address] [place] [address] PCP - General 05/02/17 documented as of this encounter
--- OUTSIDE RECORDS SUMMARY | 2023-12-22 18:14 | XMS_ITS | Encounter Summary ---
Author Organization [facility] Address [address] [place] [address] Care Team Providers Care Staff Psychologist Name Role Phone Katia Stone PA-C Primary Care Provider +1- [phone] Reason for Visit * Reason Onset Date Comments Other 07/16/2017 Encounter Details Date Type Department Care Team (Late st Contact Info) Description 07/16/2017 Telephone [facility] Cardiology - [place] [address] Caitie Awtood, TAIWO [address] [facility], [facility] [address] [place] [address] Other Social History Tobacco Use [...] 07/16/2017 1358 EDT I spoke to the direct care professional at the [place] primary care offices. There following the patient.He [...] on filedocumented in this encounter Care Teams Staff Psychologist Relationship Specialty Start Date End Date Katia Stone, MINGO [address] [place] [phone] PCP - General 05/02/17 documented as of this encounter
--- OUTSIDE RECORDS SUMMARY | 2023-12-22 18:14 | XMS_ITS | Encounter Summary ---
Author Organization [facility] Address [address] [place] [address] Care Team Providers Care Powerhouse Mechanic Apprentice Name Role Phone Katia Stone PA-C Primary Care Provider +1- [phone] Encounter Details Date Type Department Care Team (Late st Contact Info) Description 12/12/2018 Results Only [facility] [address] [place] [address] [place] [address] Wang Vila MD [address] [facility], [facility] [address] [place] [address] Social History Tobacco Use Types [...] 3.4 - 5.0 g/dl 12/12/2018 23:24 EDT [facility] GLOBULIN - PMC 4.4 g/dl 12/12/2018 23:24 EDT [facility] ALBUMIN/GLOBULIN RATIO - PMC 0.6 12/12/2018 23:24 EDT [facility] 12/12/2018 22:1 6 EDT 12/12/2018 23:12 EDT Wang Vila MD CHEMISTRY & BLOOD GA S ORDERABLES Performing Organization Address [facility] Co de Phone Number [facility] * PROCALCITONIN - PMC (12/12/2018 22:16 EDT) Procalcitonin <0.05 <0.50 ng/mL 12/12/2018 23:13 EDT [facility] Comment: Concentration of < 0.5 [...] & PF4 ORD ERABLES Performing Organization Address City/[facility]/ZIP Co de Phone Number [facility] * (ABNORMAL) BNP - PMC (12/12/2018 22:15 EDT) B-TYPE NATRIURETIC PEPTIDE - PMC 123(H) <100 pg/mL 12/12/2018 22:40 EDT [facility] 12/12/2018 22:1 5 EDT 12/12/2018 22:19 EDT Wang Vila MD CHEMISTRY & BLOOD GA S ORDERABLES Performing Organization Address [facility] de Phone Number [facility] * TROPONIN I (12/12/2018 22:06 [...] BLOOD GA S ORDERABLES Performing Organization Address [facility] de Phone Number [facility] * (ABNORMAL) BASIC METABOLIC PANEL,RANDOM - PMC (12/12/2018 22:06 EDT) [facility] Sodium 120(L) 136 - 145 mEq/L [...] 70 - 180 mg/dl 12/12/2018 23:00 EDT [facility] Calcium 8.1(L) 8.5 - 10.5 mg/dl 12/12/2018 23:00 EDT [facility] 12/12/2018 22:0 6 EDT 12/12/2018 22:18 EDT Wang Vila MD CHEMISTRY & BLOOD GA S ORDERABLES [facility] documented in this encounter Visit Diagnoses Not on filedocumented in this encounter Care Teams Powerhouse Mechanic Apprentice Relationship Specialty Start Date End Date Katia Stone, PABijalC [address] [place] [phone] PCP - General 05/02/17 documented as of this encounter
--- OUTSIDE RECORDS SUMMARY | 2023-12-22 18:14 | XMS_ITS | Encounter Summary ---
Author Organization [facility] Address [address] [place] [address] Care Team Providers Care Police Matron Name Role Phone Katia Stone PA-C Primary Care Provider +1- [phone] Reason for Visit * Reason Onset Date Comments Labs Only 07/22/2017 from 07/16 Encounter Details Date Type Department Care Team (Late st Contact Info) Description 07/22/2017 Telephone [facility]iology - [facility] [address] [facility] [place] [address] Tony Rosenberg MD [address] [place] [address] [address] [place] [address] Labs Only (from 07/16) Social [...] call office back with call back number [phone]. * Telephone Encounter - Belinda Falk RN - 07/23/2017 1054 EDT Call received from Yessica with questions on when patient's follow-up appointment was with Dr. Rosenberg, where the labwork needed to be sent to, and in put from cardiology. Provided Yessica the provider access line for PCP to discuss patient's care with Dr. Rosenberg. Also discussed with Yessica since patient is seen in [place] records are not accessible to our office (labs, and outside office notes). Yessica to review with PCP and formulate coordination of care with [facility]. * Telephone Encounter - Belinda Falk RN - 07/22/2017 1500 EDT Call placed to Yessica regarding Tim Mera unable to reach patient by phone. Message left on voicemail to call office back with call back number [phone]. * Telephone Encounter - Morena Lux - 07/22/2017 1456 EDT Yessica from [facility] Regarding patients labs from 07/16 Has anyone addressed them Please call to advise documented in this encounter Plan of Treatment Not on file documented as of this encounter Visit Diagnoses Not on filedocumented in this encounter Care Teams Police Matron Relationship Specialty Start Date End Date Katia Stone, MINGO [address] [place] [phone] PCP - General 05/02/17 documented as of this encounter
--- OUTSIDE RECORDS SUMMARY | 2023-12-22 18:15 | XMS_ITS | Encounter Summary ---
Author Organization [facility] Address [address] [place] [address] Care Team Providers Care Lockstitch Pocket Setter Name Role Phone Katia Stone PA-C Primary Care Provider [phone]- [phone] Reason for Visit * Reason Comments Shortness of Breath Encounter Details Date Type Department Care Team (Late st Contact Info) Description 06/11/2017 13:40 EDT Office Visit [facility] Cardiology [address] [id number] Tony Rosenberg MD [address] [place] [address] [place] [phone] SOB (shortness of breath) (Primary Dx) [...] Rosenberg MD - 06/11/2017 0000 EDT [facility] CARDIOLOGY - [place] PROGRESS / FOLLOWUP NOTE - 06/11/2017 PROBLEM LIST: 1. Third-degree heart block. a. Status post dual chamber pacemaker insertion. b. Pericardial effusion. c. Pacemaker generator lead repositioning and pericardiocentesis. 2. Large pleural effusions. 3. Hypertension. 4. Hyponatremia. SUBJECTIVE: Mr Mera was seen at the [facility] after his recent hospitalization at the [facility] for AV block. He had a [...] substantial bilateral pleural effusions. Echocardiogram done in [facility] shows preserved LV systolic function. No [...] Mr Mera to be admitted to the [facility] tomorrow for bilateral thoracentesis. Tony Rosenberg MD 03 51 PM - Tony Rosenberg MD ln Dictation ID: [id number] cc: Shailesh Torres MD, [address] [address] Katia Mccallum PA-C, [place] [address] [address] [place] [address] documented in this encounter Plan of Treatment Not on file documented as of this encounter Visit Diagnoses Diagnosis SOB (shortness of breath)- Primary Shortness of breath documented in this encounter Care Teams Lockstitch Pocket Setter Relationship Specialty Start Date End Date Katia Stone PA-C [facility] [address] [place] [id number] PCP - General 05/02/17 documented as of this encounter
--- OUTSIDE RECORDS SUMMARY | 2023-12-22 18:15 | XMS_ITS | Encounter Summary ---
Author Organization [facility] Address [address] [place] [address] Care Team Providers Care Compensation Adjuster Name Role Phone Katia Stone PA-C Primary Care Provider [phone]- [phone] Reason for Referral * Consult (Routine) - New Request Specialty Diagnoses / Procedures Referred By Contgaye t Referred To Contact Diagnoses Heart failure, unspecified HF chronicity, unspecified heart failure type (HCC-CMS) Subacute effusive constrictive pericarditis Michael Pratt MD [facility] [place] [address] Referral ID Status Reason Start Date Expiration Date Visits Requested Visits Authorized [id number] New Request Specialty Services Required 06/16/2017 1 1 Question Answer Reason for Request: f/u constrictive pericarditis Expected Discharge Date (Inpatient Only): 06/16/2017 [facility] Comments With Dr. Torres * Follow Up (3 - 10 Business Days) - Receiving Office to Obtain Authorization Specialty Diagnoses / Procedures Referred By Contac t Referred To Contact Diagnoses Heart failure, unspecified HF chronicity, unspecified heart failure type (HCC-CMS) Subacute effusive constrictive pericarditis Bg Atwood MD [address] [facility] [address] [place] [address] Referral ID Status Reason Start Date Expiration Date Visits Requested Visits Authorized [id number] Receiving Office to Obtain Authorization Continuity of Care 8 1 1 Question Answer Reason for Request: f/u hospitalization for constrictive pericarditis Expected Discharge Date (Inpatient Only): 06/16/2017 * Referral (Routine/Next Available) - New Request Specialty Diagnoses / Procedures Referred By Jael t Referred To Contact Diagnoses Heart failure, unspecified HF chronicity, unspecified heart failure type ([facility]-CMS) Subacute effusive constrictive pericarditis Bg Atwood MD [address] [place] [id number] [address] Referral ID Status Reason Start Date Expiration Date Visits Requested Visits Authorized [id number] New Request Specialty Services Required 06/16/2017 1 1 Question Answer I certify that this patient is under my care and that I, or another Medicare allowed practitioner (DO CHAMP, PACHECO) working with me, had a leit-ra-vpnn encounter with this patient on this date: 06/16/2017 I further certify that the iakf-po-bhgg encounter was in whole or in part [...] ambulation Nursing skilled care requested: Nursing asessment custodial assessment needed related to this encounter: Response to new or changed medication Expected Discharge Date (Inpatient Only): 06/16/2017 Encounter Details Date Type Department Care Team (Late st Contact Info) Description 06/12/2017 17:51 EDT - 06/16/2017 16:57 EDT Hospital Encounter [facility] Cardiac/Telemetry Unit [address] [place] [address] Seng Rand MD PhD [address] [facility] Level 1 [place] [address] Bg Atwood MD [address] [facility] [address] [place] [phone] Tony Rosenberg MD [address] [address] Heart failure, unspecified HF chronicity, [...] unspecified HF chronicity, unspecified heart failure type ([facility]-CMS) 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 Heart failure ([facility]) 06/12/2017 Resolved Hospital Problems Diagnosis Date Noted [...] orthopnea on a follow up exam at [facility]. He was transferred to [facility] due to concern for subacute [...] Component Value Units Date/Time Bacterial Culture/Smear, Fluid [[id number]] Collected: 06/13/17 0826 Lab Status: Preliminary result Specimen: FOSMIC from Pleural Fluid Updated: 06/15/17 0729 Gram Smear Result Polys present No bacteria seen Result No growth Bacterial Culture, Blood [[id number]] Collected: 06/12/172246 Lab Status: In process Specimen: Blood Updated: 06/12/172320 Bacterial Culture, Blood [[id number]] Collected: 06/12/172239 Lab Status: In process Specimen: [...] Scheduled with [facility] Upcoming Appointments Aug 06, 2017 15:20 EDT Follow Up Return with Tony Rosenberg MD [facility] Cardiology [facility] (--) [address] [place] [id number] Appointments Outside of [facility] We [...] another Medicare authorized non-physician practitioner (PA or SENIOR ELECTRICAL PROJECT MANAGER) or resident working with me, had a ijkb-ym-nrcb encounter with this patient on this date: 06/16/2017 I further certify that the gqmi-nh-ogwd encounter was in whole or in part related to the reason thepatient needs home health care.: Yes The patient has had a zmcx-th-bocm visit by me or one of my [...] and ambulation Skilled Care Requested: Nursing asessment custodial assessment needed related to this encounter: Response to new or changed medication Expected Discharge Date (Inpatient Only): 06/16/2017 Authorizing Provider: Bg Atwood MD Additional Information: Please follow up at [facility] with Dr. Tony Rosenberg on August 06, 2017 at 3:20 pm. If you have questions please call [phone]. Please follow up with your primary care physician, Katia Mccallum, on June 17, 2017 at 10:45 am. Ifyou have any questions please call [phone]. Studies We Will Schedule Appointments We Recommend but have not been Scheduled None Michael Pratt MD 06/16/2017 15:18 I evaluated the patient and agree with the discharge summary as outlined above by Dr. Pratt. Mr. Farfan was feeling much better today. 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 BG ATWOOD MD Attending Hunter Skin Diver [facility] documented in this encounter Discharge Instructions * Appointments* Desi Thomas - 06/16/2017 12:01 EDT Please follow up at [facility] with Dr. Tony Rosenberg on August 06, 2017 at 3:20 pm. If you have questions please call [phone]. Please follow up with your primary care physician, Katia Mccallum, on June 17, 2017 at 10:45 am. Ifyou have any questions please call [phone]. * Discharge Instr - Other Orders* Melida Natarajan, RN - 06/13/2017 8:26 EDT Remember the acronym BREDNA - Diet: low salt - Activity: daily [...] Care Everywhere. * HEART FAILURE: AVOIDING TRIGGERS ([place]) documented in this encounter Medications at Time [...] Services. D/C Summary was faxed to his Archery Instructor at Dr. Mccallum's office. Desi Villatoro RN #[id number] * Tej Casanova MD - 06/15/2017 0816 [...] daily with taper in near future - GOLF COURSE PATROLLER torsemide 40mg daily Hypokalemia/Hypomagnesemia -replete as needed [...] attestation - Bg Atwood MD - 06/15/2017 8057 EDT I have seen and evaluated the patient. I agree with the assessment and plan as outlined above by Dr. Casanova. He seems to be doing better on the steroids. I encouraged ambulation. We will likely cancel the right heart catheterization for tomorrow. BG ATWOOD MD Attending [employer] Skin Diver [facility] * Michael Pratt MD - 06/14/2017 [...] daily with taper in near future - GOLF COURSE PATROLLER torsemide 40mg daily Pleural Effusions: Associated with [...] not lie flat. 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 O/ wt-100.7 kg Prior wt-~108 kg(05/24/17) Ht-180.3 [...] to d/c. Magalis Berger RD, CD X/cover #[id number] * Ameena Teixeira - 06/13/2017 1155 EDT Initial Case Management/Social Work Assessment and Discharge Plan/Readmission Risk Assessment REASON FOR ADMISSION: Heart failure ([facility]) Patient understands reason for admission: Yes PATIENT CONTACT INFO VERIFIED: Yes PATIENT ADDRESS VERIFIED: Yes (David is staying with his son Mo temporarily in [place]. 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 Hereports that he has only been drinking 1-2 beers/day. He denied any concern over his ETOH use. AMEENA TEIXEIRA 06/13/2017 11:59 For Ivelisse Rueda * Desi Villatoro, RN - 06/13/2017 0929 EDT 06/13: Received a call from Yessica Card at [facility]. She is the patient's Archery Instructor. I've faxed patient's H&P to her and will keep her up to date on patient's progress and projected d/c. Yessica Card, Archery Instructor P: [phone] ext [phone] F: [phone] Desi Villatoro RN [facility] #[id number] * Renetta Martini, TISH - 06/13/2017 1680 EDT Pt received from [facility] to angio [...] Notes * Denilson Shannon MD - 06/12/2017 2059 EDT Cardiology Admitting H&P Admit Date: 06/12/2017 [...] follow up performed by Dr. Rosenberg in [place] (has now completed 14 days of ibuprofen). After seeing Dr. Rosenberg yesterday and having an echo performed, he was noted to have worsening dyspnea, orthopnea, and increasing pleural effusions. He denies chest pain, diaphoresis, arm/jaw pain, wheezing, nausea/vomiting, change in bowels, or change in urination. He notes an ongoing cough with worsening abdominal pain from coughing so frequently. He was transferred to [facility] for consideration of thoracentesis and [...] tomorrow (either bedside or IR guided) - GOLF COURSE PATROLLER torsemide 40mg daily - NPO after midnight [...] Addendum 66 yo man who lives in [facility] [place] and follows with Dr. Rosenberg with a [...] - team attempted to obtain echo from [facility] however unable to do so until AM - if no other etiology found consider switching to colchicine + prednisone - blood cultures Denilson Shannon MD Adolescent Specialist Pager [phone] 06/12/2017 21:56 Associated attestation - Bg Atwood [...] thoracentesis as well. BG ATWOOD MD Attending Hunter Skin Diver [facility] documented in this encounter Procedure Notes * Randy Ireland PA-C - 06/13/2017 0839 EDT IR Procedure Note Procedure: Requested U/S guided bilateral thoracentesis Date Performed: 06/13/2017 Radiologist/Pulper Tender(s):MD Andrea /MINGO Ireland Sedation/Anesthesia: local Time Out: [...] without difficulty. Discharge home orders received. Action: [facility] [...] with patient.Informed pt that he will have [facility] on Friday. R: Pt verbalized understanding of his plan of care. * Plan of Care - Mila Mcallister RN - 06/14/2017 9988 EDT Problem: Daily Care Plan Goals Goal: [...] to room/call garza system. Admission database completed. media monitor applied. Plan of care reviewed to [...] EDT) 06/29/2017 16:0 1 EDT Scan 2 Vice President Research PROCEDURE/MINOR VELMA GICAL ORDERABLES * IMPLANT RECORD - SCANNED (06/19/2017 14:15 EDT) 06/19/2017 14:1 5 EDT Scan 2 Vice President Research PROCEDURE/MINOR VELMA GICAL ORDERABLES * ECG REPORT - SCANNED (06/19/2017 14:15 EDT) 06/19/2017 14:1 5 EDT Scan 2 Vice President Research PROCEDURE/MINOR VELMA GICAL ORDERABLES * MAGNESIUM (06/16/2017 5:39 EDT) Magnesium 1.9 1.7 - 2.8 mg/dl 06/16/2017 6:48 EDT [facility] Blood specimen (specimen) BLOOD SPECIMEN / Unknown 06/16/2017 5:39 EDT 06/16/2017 6:15 EDT Michael Pratt MD CHEMISTRY & BLOOD GA S ORDERABLES [facility] [address] [place] [address] * (ABNORMAL) ELECTROLYTES (06/16/2017 5:39 EDT) Sodium 133(L) 136 - 145 mEq/L 06/16/2017 6:48 EDT [facility] Potassium 3.7 3.5 - 5.0 mEq/L 06/16/2017 6:48 T [facility] Chloride 90(L) 96 - 110 mEq/L 06/16/2017 6:48 T [facility] CO2 33(H) 22 - 32 mEq/L 06/16/2017 6:48 T [facility] Blood specimen (specimen) BLOOD SPECIMEN / Unknown 06/16/2017 5:39 EDT 06/16/2017 6:15 EDT Michael Pratt MD CHEMISTRY & BLOOD GA S ORDERABLES [facility] [address] [place] [address] * (ABNORMAL) HEMAGRAM (06/16/2017 5:39 EDT) WBC [...] 9.5 - 12.7 fl 06/16/2017 6:28 EDT [facility] Blood specimen (specimen) BLOOD SPECIMEN / Unknown 06/16/2017 5:39 EDT 06/16/2017 6:15 EDT Michael Pratt MD HEMATOLOGY & PF4 ORD ERABLES Performing Organization Address City/[facility]/ZIP Co de Phone Number [facility] [address] [place] [address] * CREATININE (06/16/2017 5:39 EDT) Creatinine 0.67 0.66 - 1.25 mg/dl 06/16/2017 6:48 EDT [facility] GFR, Calculated 100 >60 ml/min/1.7 3m2 06/16/2017 6:48 EDT [facility] Comment: eGFR calculated using CKD-EPI equation for non Americans. Multiply eGFR by 1.16 for Americans. Blood specimen (specimen) BLOOD SPECIMEN / Unknown 06/16/2017 5:39 EDT 06/16/2017 6:15 EDT Michael Pratt MD CHEMISTRY & BLOOD GA S ORDERABLES Performing Organization Address City/[facility] Co de Phone Number [facility] [address] [place] [address] * MAGNESIUM (06/15/2017 5:31 EDT) Magnesium 1.7 1.7 - 2.8 mg/dl 06/15/2017 6:24 EDT [facility] Blood specimen (specimen) BLOOD SPECIMEN / Unknown 06/15/2017 5:31 EDT 06/15/2017 5:48 EDT Michael Pratt MD CHEMISTRY & BLOOD GA S ORDERABLES Performing Organization Address City/[facility]/ZIP Co de Phone Number [facility] [address] [place] [address] * (ABNORMAL) ELECTROLYTES (06/15/2017 5:31 EDT) Sodium 133(L) 136 - 145 mEq/L 06/15/2017 6:24 EDT [facility] Potassium 3.4(L) 3.5 - 5.0 mEq/L 06/15/2017 6:24 [facility] Chloride 90(L) 96 - 110 mEq/L 06/15/2017 6:24 T [facility] CO2 34(H) 22 - 32 mEq/L 06/15/2017 6:24 T [facility] Blood specimen (specimen) BLOOD SPECIMEN / Unknown 06/15/2017 5:31 EDT 06/15/2017 5:48 EDT Michael Pratt MD CHEMISTRY & BLOOD GA S ORDERABLES Performing Organization Address City/State/[facility] Co de Phone Number [facility] [address] [place] [address] * (ABNORMAL) HEMAGRAM (06/15/2017 5:31 EDT) Pathologist [...] SERVICES RDW-SD 41.4 <46.0 fl 06/15/2017 5:58 [facility] PLT 240 141 - 377 K/cmm 06/15/2017 5:58 EDT [facility] MPV 11.1 9.5 - 12.7 fl 06/15/2017 5:58 EDT [facility] Blood specimen (specimen) BLOOD SPECIMEN / Unknown 06/15/2017 5:31 EDT 06/15/2017 5:48 EDT Michael Pratt MD HEMATOLOGY & PF4 ORD ERABLES [facility] [address] [place] [address] * (ABNORMAL) CREATININE (06/15/2017 5:31 EDT) Creatinine 0.65(L) 0.66 - 1.25 mg/dl 06/15/2017 6:24 EDT [facility] GFR, Calculated 101 >60 ml/min/1.7 3m2 06/15/2017 6:24 EDT [facility] Comment: eGFR calculated using CKD-EPI equation for non Americans. Multiply eGFR by 1.16 for Americans. Blood specimen (specimen) BLOOD SPECIMEN / Unknown 06/15/2017 5:31 EDT 06/15/2017 5:48 EDT Michael Pratt MD CHEMISTRY & BLOOD GA S ORDERABLES Performing Organization Address City/[facility] Co de Phone Number [facility] [address] [place] [address] * INPATIENT ADD-ON (06/14/2017 8:00 EDT) Tests to be added PLEASE ADD ON DIFFERENTIAL TO CBC 06/14/2017 7:59 EDT [facility] Number for problems M5 06/14/2017 8:01 T [facility] Accession number [id number] 06/14/2017 8:01 EDT [facility] TOPOGRAPHY UNKNOWN / Unknown 06/14/2017 8:00 EDT 06/14/2017 8:01 EDT Catherine Walker MD HEMATOLOGY & PF4 ORD ERABLES [facility] [address] [place] [address] * (ABNORMAL) DIFFERENTIAL (06/14/2017 5:32 EDT) % Neutrophils 72.2 % 06/14/2017 8:47 EDT [facility] % Lymphocytes 14.9 % 06/14/2017 8:47 EDT [facility] % Monocytes 12.1 % 06/14/2017 8:47 EDT [facility] % Eosinophils 0.1 % 06/14/2017 8:47 T [facility] % Basophils 0.2 % 06/14/2017 8:47 EDT [facility] % Immature Grans 0.5 % 06/14/2017 8:47 EDT [facility] ABS Neutrophils 8.96(H) 2.20 - 8.85 K/cmm 06/14/2017 8:47 EDT [facility] ABS Lymphs 1.85 1.09 - 3.30 K/cmm 06/14/2017 8:47 EDT [facility] ABS Monocytes 1.50(H) 0.1 - 0.8 K/cmm 06/14/2017 8:47 T [facility] ABS Eosinophils 0.01(L) 0.03 - 0.61 K/cmm 06/14/2017 8:47 T [facility] ABS Basophils 0.02 0.01 - 0.11 K/cmm 06/14/2017 8:47 EDT [facility] ABS Immature Grans 0.06 0 - 0.06 K/cmm 06/14/2017 8:47 T [facility] Type of Diff: Automated 06/14/2017 8:47 [facility] BLOOD SPECIMEN / Unknown 06/14/2017 5:32 EDT 06/14/2017 5:53 EDT Michael Pratt MD HEMATOLOGY & PF4 ORD ERABLES [facility] [address] [place] [address] * MAGNESIUM (06/14/2017 5:32 EDT) Magnesium 2.0 1.7 - 2.8 mg/dl 06/14/2017 6:25 EDT [facility] Blood specimen (specimen) BLOOD SPECIMEN / Unknown 06/14/2017 5:32 EDT 06/14/2017 5:53 EDT Michael Pratt MD CHEMISTRY & BLOOD GA S ORDERABLES Performing Organization Address [facility] Co de Phone Number [facility] [address] [place] [address] * (ABNORMAL) ELECTROLYTES (06/14/2017 5:32 EDT) Pathologist [facility] Sodium 133(L) 136 - 145 mEq/L 06/14/2017 6:25 EDT [facility] Potassium 3.6 3.5 - 5.0 mEq/L 06/14/2017 6:25 EDT [facility] Chloride 91(L) 96 - 110 mEq/L 06/14/2017 6:25 EDT [facility] CO2 31 22 - 32 mEq/L 06/14/2017 6:25 EDT [facility] Blood specimen (specimen) BLOOD SPECIMEN / Unknown 06/14/2017 5:32 EDT 06/14/2017 5:53 EDT Michael Pratt MD CHEMISTRY & BLOOD GA S ORDERABLES Performing Organization Address City/[facility]/ZIP Co de Phone Number [facility] [address] [place] [address] * (ABNORMAL) HEMAGRAM (06/14/2017 5:32 EDT) WBC 12.41(H) 4.0 - 10.4 K/cmm 06/14/2017 6:00 EDT [facility] RBC 3.64(L) 4.36 - 5.78 M/cmm 06/14/2017 6:00 EDT [facility] Hemoglobin 11.9(L) 13.8 - 17.3 gm/dl 06/14/2017 6:00 EDT [facility] HCT 33.8(L) 39.5 - 50.2 % 06/14/2017 6:00 EDT [facility] MCV 93 81 - 95 fl 06/14/2017 6:00 EDT [facility] MCH 32.7 27.6 - 33.0 pg 06/14/2017 6:00 EDT [facility] MCHC 35.2 32.8 - 36.4 gm/dl 06/14/2017 6:00 EDT [facility] RDW-CV 11.9 <14.2 % 06/14/2017 6:00 T [facility] RDW-SD 40.7 <46.0 fl 06/14/2017 6:00 EDT [facility] PLT 243 141 - 377 K/cmm 06/14/2017 6:00 T [facility] MPV 11.7 9.5 - 12.7 fl 06/14/2017 6:00 T [facility] Blood specimen (specimen) BLOOD SPECIMEN / Unknown 06/14/2017 5:32 EDT 06/14/2017 5:53 EDT Michael Pratt MD HEMATOLOGY & PF4 ORD ERABLES [facility] [address] [place] [address] * (ABNORMAL) CREATININE (06/14/2017 5:32 EDT) Creatinine 0.60(L) 0.66 - 1.25 mg/dl 06/14/2017 6:25 EDT [facility] GFR, Calculated 105 >60 ml/min/1.7 3m2 06/14/2017 6:25 EDT [facility] Comment: eGFR calculated using CKD-EPI equation for non Americans. Multiply eGFR by 1.16 for Americans. Blood specimen (specimen) BLOOD SPECIMEN / Unknown 06/14/2017 5:32 EDT 06/14/2017 5:53 EDT Michael Pratt MD CHEMISTRY & BLOOD GA S ORDERABLES Performing Organization Address City/[facility]/ZIP Co de Phone Number [facility] [address] [place] [address] * INPATIENT ADD-ON (06/13/2017 15:00 EDT) Tests to be added PLEASE ADD ON HEMATOCRIT TO PLEURAL FLUID OBTAINED TODAY (06/13). THANK YOU 06/13/2017 14:56 EDT [facility] Number for problems [id number] 06/13/2017 15:05 EDT [facility] Accession number [id number] 06/13/2017 15:15 EDT [facility] Comment:Corrected on 06/13 A T 1515: Previously reported as [id number] TOPOGRAPHY UNKNOWN / Unknown 06/13/2017 15:00 EDT 06/13/2017 15:02 EDT Catherine Walker MD HEMATOLOGY & PF4 ORD ERABLES Performing Organization Address [facility]/ZIP Co de Phone Number [facility] [address] [place] [address] * INPATIENT ADD-ON (06/13/2017 15:00 EDT) Tests to be added TOTAL PROTEIN,LD H 06/13/2017 14:55 EDT [facility] Number for problems [id number] 06/13/2017 15:01 EDT [facility] Accession number [id number] 06/13/2017 15:02 EDT [facility] Comment:Corrected on 06/13 A T 1502: Previously reported as [id number] TOPOGRAPHY UNKNOWN / Unknown 06/13/2017 15:00 EDT 06/13/2017 15:01 EDT Catherine Walker MD HEMATOLOGY & PF4 ORD ERABLES Performing Organization Address City/[facility]/ZIP Co de Phone Number [facility] [address] [place] [address] * CT CHEST (PE) PROTOCOL W CONTRAST [...] the bilateral lower extremities. Rahat Aviles MD [facility] ORDERABLES * IR THORACENTESIS (06/13/2017 8:45 [...] sterile technique and under local anesthesia, a 8-Bruneian thoracentesis catheter was advanced into the left [...] sterile technique and under local anesthesia, a 8-Bruneian thoracentesis catheter was advanced into the left [...] y Fld <3.0 % 06/13/2017 16:01 EDT [facility] PLEURAL FLUID SPECIMEN / Unknown 06/13/2017 8:26 EDT 06/13/2017 8:49 EDT Michael Pratt MD GEN LAB UNIT COLLECT ORDERABLES Performing Organization Address City/[facility] Co de Phone Number [facility] [address] [place] [address] * FLUID DIFFERENTIAL (06/13/2017 8:26 EDT) Neutrophils, Fluid 33 % 06/13/2017 12:15 EDT [facility] Lymphocytes, Fluid 50 % 06/13/2017 12:15 EDT [facility] [place]/Macro, Fluid 12 % 06/13/2017 12:15 EDT [facility] Mesothelial 5 % 06/13/2017 12:15 T [facility] Fluid Comment Rev'd by Pathologist 06/13/2017 12:15 EDT [facility] PLEURAL FLUID SPECIMEN / Unknown 06/13/2017 8:26 EDT 06/13/2017 8:49 EDT Michael Pratt MD GEN LAB UNIT COLLECT ORDERABLES Performing Organization Address City/[facility]/ZIP Co de Phone Number [facility] [address] [place] [address] * PH, PLEURAL FLUID (06/13/2017 8:26 EDT) Pleural Fluid pH 7.42 06/14/19 18 9:12 EDT [facility] Comment: Reference range: Pleural fluid Exudate: 7.30-7.45 Transudate: 7.40-7.55 A pleural fluid pH <7.30 is generally associated with a complicated parapneumonic effusion, empyema, connective tissue disease of the pleura or malignant effusion. PLEURAL FLUID SPECIMEN / Unknown 06/13/2017 8:26 EDT 06/13/2017 9:00 EDT Michael Pratt MD GEN LAB UNIT COLLECT ORDERABLES [facility] [address] [place] [address] * BACTERIAL CULTURE/SMEAR, FLUID (06/13/2017 8:26 EDT) Gram Smear Result Polys present 06/13/2017 10:07 EDT [facility] Gram Smear Result No bacteria seen 06/13/2017 10:07 EDT [facility] Result No growth 06/15/2017 7:29 EDT [facility] FOSMIC PLEURAL FLUID SPECIMEN / Unknown 06/13/2017 8:26 EDT 06/13/2017 9:19 EDT Comment:Left Michael Pratt MD MICROBIOLOGY - GENER AL ORDERABLES Performing Organization Address City/[facility]/ZIP Co de Phone Number [facility] [address] [place] [address] * FLUID CELL COUNT (06/13/2017 8:26 EDT) RBC, Fluid 44,000 /cmm 06/13/2017 10:31 EDT [facility] Nucleated Cells 11,202 /cmm 06/13/2017 10:31 EDT [facility] Fluid Comment MODERATELY BLOODY, MODERATELY CLOUDY 06/13/2017 10:31 EDT [facility] Body fluid specimen (specimen) PLEURAL FLUID SPECIMEN / Unknown 06/13/2017 8:26 EDT 06/13/2017 8:49 EDT Michael Pratt MD GEN LAB UNIT COLLECT ORDERABLES Performing Organization Address City/[facility]/ZIP Co de Phone Number [facility] [address] [place] [address] * TOTAL PROTEIN, FLUID (06/13/2017 8:26 EDT) Protein, Fluid 5.2 g/dl 06/13/2017 10:18 EDT [facility] Comment: Reference Range: Pleural fluid specimen (specimen) Exudate > 3.0 g/dl Pleural fluid specimen (specimen) Transudate <3.0 g/dl Peritoneal fluid sample (specimen) Serum ascites to albumin gradient (SAGG) superior to total protein content in differentiating causes of effusion. Pleural fluid specimen (specimen) [facility] PLEURAL FLUID SPECIMEN / Unknown 06/13/2017 8:26 EDT 06/13/2017 8:51 EDT Michael Pratt MD GEN LAB UNIT COLLECT ORDERABLES Performing Organization Address [facility] Co de Phone Number [facility] [address] [place] [address] * LDH, FLUID (06/13/2017 8:26 EDT) LDH, Fluid 654 U/L 06/13/2017 10:18 EDT [facility] Comment: Pleural fluid specimen (specimen) Reference Range: Suggestive of exudate if fluid cholesterol is > 45 mg/dl or fluid LDH is greater than 0.45 times the upper limit of normal serum LDH levels. Peritoneal fluid sample (specimen) No reference range available Pleural fluid specimen (specimen) [facility] PLEURAL FLUID SPECIMEN / Unknown 06/13/2017 8:26 EDT 06/13/2017 8:51 EDT Michael Pratt MD GEN LAB UNIT COLLECT ORDERABLES Performing Organization Address City/[facility]/ZIP Co de Phone Number [facility] [address] [place] [address] * GLUCOSE, FLUID (06/13/2017 8:26 EDT) Glucose, Fluid 88 mg/dl 06/13/2017 10:18 EDT [facility] Comment: Reference Range: Pleural fluid specimen (specimen) Low glucose is accepted as <60 mg/dl or pleural fluid to serum glucose ratio of <0.5. Peritoneal fluid sample (specimen) Low glucose is generally accepted as <50 mg/dl. Pleural fluid specimen (specimen) [facility] PLEURAL FLUID SPECIMEN / Unknown 06/13/2017 8:26 EDT 06/13/2017 8:51 EDT Michael Pratt MD GEN LAB UNIT COLLECT ORDERABLES Performing Organization Address City/[facility]/ZIP Co de Phone Number [facility] [address] [place] [address] * CREATININE, FLUID (06/13/2017 8:26 EDT) Creatinine, Fluid 0.57 mg/dl 06/13/2017 10:18 EDT [facility] Comment: Reference Range: Pleural fluid specimen (specimen) No reference range available Peritoneal fluid sample (specimen) No reference range available Drain device specimen (specimen) No reference range available Pleural fluid specimen (specimen) [facility] PLEURAL FLUID SPECIMEN / Unknown 06/13/2017 8:26 EDT 06/13/2017 8:51 EDT Michael Pratt MD GEN LAB UNIT COLLECT ORDERABLES Performing Organization Address City/[facility]/ZIP Co de Phone Number [facility] [address] [place] [address] * PROTEIN, TOTAL (06/13/2017 6:08 EDT) Total Protein 7.2 6.3 - 8.2 g/dl 06/13/2017 15:23 EDT [facility] BLOOD SPECIMEN / Unknown 06/13/2017 6:08 EDT 06/13/2017 6:38 EDT Michael Pratt MD CHEMISTRY & BLOOD GA S ORDERABLES Performing Organization Address [facility]/ZIP Co de Phone Number [facility] [address] [place] [id number] * LDH (06/13/2017 6:08 EDT) LDH 428 313 - 618 U/L 06/13/2017 15:23 EDT [facility] BLOOD SPECIMEN / Unknown 06/13/2017 6:08 EDT 06/13/2017 6:38 EDT Michael Pratt MD CHEMISTRY & BLOOD GA S ORDERABLES [facility] [address] [place] [address] * (ABNORMAL) MAGNESIUM (06/13/2017 6:08 EDT) Magnesium 1.4(L) 1.7 - 2.8 mg/dl 06/13/2017 7:07 EDT [facility] Blood specimen (specimen) BLOOD SPECIMEN / Unknown 06/13/2017 6:08 EDT 06/13/2017 6:38 EDT Mcihael Pratt MD CHEMISTRY & BLOOD GA S ORDERABLES Performing Organization Address [facility] Co de Phone Number [facility] [address] [place] [address] * (ABNORMAL) ELECTROLYTES (06/13/2017 6:08 EDT) Sodium 132(L) 136 - 145 mEq/L 06/13/2017 7:07 EDT [facility] Potassium 3.6 3.5 - 5.0 mEq/L 06/13/2017 7:07 EDT [facility] Chloride 91(L) 96 - 110 mEq/L 06/13/2017 7:07 EDT [facility] CO2 29 22 - 32 mEq/L 06/13/2017 7:07 EDT [facility] Blood specimen (specimen) BLOOD SPECIMEN / Unknown 06/13/2017 6:08 EDT 06/13/2017 6:38 EDT Michael Pratt MD CHEMISTRY & BLOOD GA S ORDERABLES Performing Organization Address [facility]/ZIP Co de Phone Number [facility] [address] [place] [address] * (ABNORMAL) HEMAGRAM (06/13/2017 6:08 EDT) WBC [...] Pratt MD HEMATOLOGY & PF4 ORD ERABLES [facility] [address] [place] [address] * (ABNORMAL) CREATININE (06/13/2017 6:08 EDT) Creatinine 0.58(L) 0.66 - 1.25 mg/dl 06/13/2017 7:07 [facility] GFR, Calculated 106 >60 ml/min/1.7 3m2 06/13/2017 7:07 [facility] Comment: eGFR calculated using CKD-EPI equation for non Americans. Multiply eGFR by 1.16 for Americans. Blood specimen (specimen) BLOOD SPECIMEN / Unknown 06/13/2017 6:08 EDT 06/13/2017 6:38 EDT Michael Pratt MD CHEMISTRY & BLOOD GA S ORDERABLES Performing Organization Address [facility] de Phone Number [facility] [address] [place] [address] * (ABNORMAL) PROTIME (06/13/2017 6:08 EDT) Pro Time 14.0(H) 10.3 - 13.4 secs 06/13/2017 7:00 EDT [facility] Comment:NOTE NEW REFERENCE Vern FUNG OF APR 03 2017 I.N.R. 1.2(H) 0.9 - 1.1 Ratio 06/13/2017 7:00 EDT [facility] Comment: Moderate Intensity Coumadin INR = 2.0-3.0 Adjustments in anticoagulant therapy dose should be based upon the INR and NOT the Pro Time. Blood specimen (specimen) BLOOD SPECIMEN / Unknown 06/13/2017 6:08 EDT 06/13/2017 6:38 EDT Michael Pratt MD HEMATOLOGY & PF4 ORD ERABLES Performing Organization Address [facility] de Phone Number [facility] [address] [place] [address] * BACTERIAL CULTURE, BLOOD (06/12/2017 22:47 EDT) Result No growth 06/17/2017 7:12 EDT [facility] Blood specimen (specimen) BLOOD SPECIMEN / Unknown 06/12/2017 22:47 EDT 06/12/2017 23:20 EDT Comment:Left~Antecubital Denilson Shannon MD MICROBIOLOGY - GENE RAL ORDERABLES Performing Organization Address [facility] Co de Phone Number [facility] [address] [place] [address] * (ABNORMAL) D-DIMER (06/12/2017 22:40 EDT) D-Dimer 724(H) <230 ng/mL 06/12/2017 23:14 EDT [facility] Comment: CUTOFF VALUE FOR THE EXCLUSION OF DVT and PE: 230 ng/mL D-dimer units Any use of the age-adjusted cutoff value is a post-analytic modification of this FDA-approved test and is considered off-label use of the test result. [facility] laboratory does not have literature to support the validity of an age-adjusted cutoff for our specific assay. Blood specimen (specimen) BLOOD SPECIMEN / Unknown 06/12/2017 22:40 EDT 06/12/2017 22:57 EDT Rahat Aviles MD HEMATOLOGY & PF4 OR DERABLES Performing Organization Address City/[facility]/ZIP Co de Phone Number [facility] [address] [place] [address] * BACTERIAL CULTURE, BLOOD (06/12/2017 22:40 EDT) Result No growth 06/17/2017 7:12 EDT [facility] Blood specimen (specimen) BLOOD SPECIMEN / Unknown 06/12/2017 22:40 EDT 06/12/2017 23:20 EDT Comment:Right~Antecubital Denilson Shannon MD MICROBIOLOGY - GENE RAL ORDERABLES [facility] [address] [place] [address] * INPATIENT ADD-ON (06/12/2017 21:30 EDT) Tests to be added NT PRO BNP 06/12/2017 21:28 EDT [facility] Number for problems Not Given 06/12/2017 21:31 EDT [facility] Accession number [id number] 06/12/2017 21:31 EDT [facility] TOPOGRAPHY UNKNOWN / Unknown 06/12/2017 21:30 EDT 06/12/2017 21:31 EDT Denilson Shannon MD HEMATOLOGY & PF4 OR DERABLES [facility] [address] [place] [address] * CHEST PA AND LATERAL (06/12/2017 20:56 [...] added HIGH SENSITIVITY CRP 06/12/2017 19:17 EDT [facility] Number for problems [id number] 06/12/2017 19:24 EDT [facility] Accession number [id number] 06/12/2017 19:24 EDT [facility] TOPOGRAPHY UNKNOWN / Unknown 06/12/2017 19:20 EDT 06/12/2017 19:21 EDT Michael Pratt MD HEMATOLOGY & PF4 ORD ERABLES Performing Organization Address [facility] Co de Phone Number [facility] [address] [place] [address] * (ABNORMAL) NT PRO BNP (06/12/2017 18:37 EDT) [facility] NT Pro BNP 1,380(H) <300 pg/ml 06/12/2017 22:19 EDT [facility] Comment: Reference Range: NT-proBNP [...] BLOOD GA S ORDERABLES Performing Organization Address [facility]/ZIP Co de Phone Number [facility] [address] [place] [address] * HIGH SENSITIVITY C-REACTIVE PROTEIN (CARDIOVASCULAR DISEASE) (06/12/2017 18:37 EDT) [facility] High Sensitivity CRP 83.3 mg/L 06/13/2017 10:08 EDT [facility] Comment: Reference Range: <1.0 mg/L Low risk 1.0-3.0 mg/L Average risk >3.0 mg/L High risk >10.0 mg/L Acute inflammation BLOOD SPECIMEN / Unknown 06/12/2017 18:37 EDT 06/12/2017 18:58 EDT Catherine Walker MD CHEMISTRY & BLOOD GA S ORDERABLES Performing Organization Address City/[facility]/ZIP Co de Phone Number [facility] [address] [place] [address] * TROPONIN I (06/12/2017 18:37 EDT) Troponin I (ng/mL) <0.034 <0.034 ng/ml 06/12/2017 19:49 EDT [facility] Blood specimen (specimen) BLOOD SPECIMEN / Unknown 06/12/2017 18:37 EDT 06/12/2017 18:58 EDT Catherine Walker MD CHEMISTRY & BLOOD GA S ORDERABLES Performing Organization Address City/[facility] Co de Phone Number [facility] [address] [place] [address] * (ABNORMAL) HEMAGRAM (06/12/2017 18:37 EDT) WBC [...] RDW-CV 11.6 <14.2 % 06/12/2017 19:04 EDT [facility] RDW-SD 39.4 <46.0 fl 06/12/2017 19:04 EDT [facility] PLT 206 141 - 377 K/cmm 06/12/2017 19:04 EDT [facility] MPV 12.3 9.5 - 12.7 fl 06/12/2017 19:04 EDT [facility] Blood specimen (specimen) BLOOD SPECIMEN / Unknown 06/12/2017 18:37 EDT 06/12/2017 18:58 EDT Catherine Walker MD HEMATOLOGY & PF4 ORD ERABLES Performing Organization Address City/[facility]/ZIP Co de Phone Number [facility] [address] [place] [address] * BUN (06/12/2017 18:37 EDT) BUN 10 10 - 26 mg/dl 06/12/2017 19:34 EDT [facility] Blood specimen (specimen) BLOOD SPECIMEN / Unknown 06/12/2017 18:37 EDT 06/12/2017 18:58 EDT Catherine Walker MD CHEMISTRY & BLOOD GA S ORDERABLES Performing Organization Address [facility] Co de Phone Number [facility] [address] [place] [address] * (ABNORMAL) ELECTROLYTES (06/12/2017 18:37 EDT) Sodium 129(L) 136 - 145 mEq/L 06/12/2017 19:34 EDT [facility] Potassium 3.4(L) 3.5 - 5.0 mEq/L 06/12/2017 19:34 T [facility] Chloride 91(L) 96 - 110 mEq/L 06/12/2017 19:34 T [facility] CO2 27 22 - 32 mEq/L 06/12/2017 19:34 EDT [facility] Blood specimen (specimen) BLOOD SPECIMEN / Unknown 06/12/2017 18:37 EDT 06/12/2017 18:58 EDT Catherine Walker MD CHEMISTRY & BLOOD GA S ORDERABLES Performing Organization Address [facility] de Phone Number [facility] [address] [place] [address] * (ABNORMAL) CREATININE (06/12/2017 18:37 EDT) Creatinine 0.54(L) 0.66 - 1.25 mg/dl 06/12/2017 19:34 EDT [facility] GFR, Calculated 109 >60 ml/min/1.7 3m2 06/12/2017 19:34 EDT [facility] Comment: eGFR calculated using CKD-EPI equation for non Americans. Multiply eGFR by 1.16 for Americans. Blood specimen (specimen) BLOOD SPECIMEN / Unknown 06/12/2017 18:37 EDT 06/12/2017 18:58 EDT Catherine Walker MD CHEMISTRY & BLOOD GA S ORDERABLES Performing Organization Address [facility] de Phone Number [facility] [address] [place] [address] * EKG 12-LEAD (06/12/2017 18:27 EDT) 06/12/2017 18:2 7 EDT Narrative [facility] EKG - 06/29/2017 15:57 EDT ? [facility] ? Test Date: ?2017-06-12 Pat Name: ? DAVID FARFAN ?Department: ?? Subha Chao ? Room: ? ME505 Gender: ? Male ? 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 [id number] : ?1950 ? Requested By: GISELA Dunn Order Number: [id number] ? Reading MD: ?? SENG PERSON SA MD ? Measurements Intervals ?[place] ? Rate: ? 120 ?P: ?165 LA: ? 235 ?QRS: ?-22 QRSD: ? 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: [id number] : 1950 Requested By: GISELA Dunn Order Number: [id number] Reading MD: SENG ROBLEDO Measurements Intervals [place] Rate: 120 P: 165 LA: 235 QRS: -22 QRSD: 176 T: 171 [...] Catherine Walker MD CARDIAC ECG ORDERABL ES [facility] EKG documented in this encounter [...] Manzano RN) 08 (Given - Provider: Omayra Farely, TISH) potassium chloride SA (K-DUR, KLOR-CON) tablet [...] 1 06/12/2017 MEASURE WEIGHT 1 06/12/2017 NOTIFY ORACLE DATABASE ANALYST 1 06/12/2017 [facility] PROPHYLAXI S CURRENTLY [...] 06/01 documented in this encounter Care Teams Compensation Adjuster Relationship Specialty Start Date End Date Katia Stone, MINGO [address] [place] [id number] PCP - General 05/02/17 documented as of this encounter
--- OUTSIDE RECORDS SUMMARY | 2023-12-22 18:15 | XMS_ITS | Encounter Summary ---
Author Organization [facility] Address [address] [place] [address] Care Team Providers Care Director Translational Name Role Phone Katia Stone PA-C Primary Care Provider [phone]- [phone] Reason for Referral * Follow Up (3 - 10 Business Days) - New Request Specialty Diagnoses / Procedures Referred By Contac t Referred To Contact Diagnoses Hyponatremia Pericardial effusion Heart block Acute on chronic diastolic congestive heart failure (HCC-CMS) Acute pericarditis, unspecified type Vini Mathis MD [address] [place] [phone] Katia Stone PA-C [facility] [address] [place] [address] Referral ID Status Reason Start Date Expiration Date Visits Requested Visits Authorized [id number] New Request Continuity of Care 05/27/2017 1 1 Question Answer Reason for Request: post hosp f/u visit Reason for Visit * Reason Comments Chest Pain Patient arrives as ge[place] pan from [facility] for pleuritic chest pain and new diagnosis CHF after pacemaker placement at [facility] two weeks ago. Dyspnea with exertion, breath sounds course crackles. Alert and oriented. Encounter Details Date Type Department Care Team (Late st Contact Info) Description 05/20/2017 23:34 EDT - 05/27/2017 14:50 EDT Hospital Encounter [facility] Cardiac/Telemetry Unit [address] [place] [address] Laly Kim MD [address] [phone] Akash Reyes MD [address] [place] [phone] Andres Luis MD [address] [place] [phone] Tony Rosenberg MD [address] [place] [phone] Seng Brody Sa, MD [address] [place] [phone] Hyponatremia (Primary Dx); Pericardial effusion; Heart block; [...] Acute on chronic diastolic congestive heart failure ([facility]-HCC) 05/01/2017 05/27/2017 Hospital Course David Mera is [...] amlodipine and chlorthalidone. ?? He presented to [facility] ED 05/20 with orthopnea and cough, and CT chest showed pericardial effusion. He was transferred to [facility] ED for pericardiocentesis. In the ED he [...] Component Value Units Date/Time Respiratory Virus Detection [[id number]] Collected: 05/26/17 1157 Lab Status: Preliminary result Specimen: Nasopharynx Updated: 05/27/17 1425 Result No RSV, Influenza A, or Influenza B detected by PCR Result No Metapneumovirus detected by PCR. Result Delay in some virus(es) result(s), testing being repeated and/or confirmed. Anaerobe Culture/Smear (inc. aerobes), Fluid [[id number]] Collected: 05/23/17 0747 Lab Status: Preliminary result Specimen: FOSMIC from Pericardial Fluid Updated: 05/25/17 1146 Gram Smear Result Few Polys No bacteria seen Result No growth Fungus Culture/Smear, Other [[id number]] Collected: 05/23/17 0747 Lab Status: Preliminary result [...] 05/01/2017 Discharge Follow Up Appointments Scheduled with [facility] Upcoming Appointments Jun 04, 2017 16:00 EDT Post Hospital Visit with Tony Rosenberg MD [facility] Cardiology [facility] (--) [address] [facility] [address] Appointments Outside of [facility] We Will Schedule Follow-up appointments and procedures Amb Consult/Follow Up Primary Care Physician Reason for Request: post hosp f/u visit Authorizing Provider: Vini Mathis MD Additional Information: Cardiology follow up FriJune 04, 2017 at [address] Justin Rosenberg at the [facility]. You should be notified of appointment time. If you do not head by FriJune 01, please call [phone] to find out the time. Cardiology follow up on June 16, 2017 at 2:[address] Torres at the [facility] haspreviously scheduled. Clinic number [id number] Studies We Will Schedule Follow-up labs and [...] Vini Mathis MD Internal Medicine PGY-1 Pager: [phone] 05/27/2017 20:52 Associated attestation - Seng Brody Sa, MD - 05/30/2017 1206 EDT Attending Attestation: I saw and evaluated the patient 05/27. I discussed the case with the resident/DIRECTOR PRISON/fellow and agree with the findings and plan as documented above. Seng person Sa, MD Cardiac Electrophysiology documented in this encounter Discharge Instructions * Appointments* Coleen Yañez NP - 05/27/2017 10:25 EDT Cardiology follow up FriJune 04, 2017 at [address] Justin Rosenberg at the [facility]. You should be notified of appointment time. If you do not head by FriJune 01, please call [phone] to find out the time. Cardiology follow up on June 16, 2017 at 2:[address] Torres at the [facility] haspreviously scheduled. Clinic number [id number] * Discharge Instr - Other Orders* Melida [...] Care Everywhere. * HEART FAILURE: AVOIDING TRIGGERS (BERMUDIAN) documented in this encounter Medications at Time [...] knees MSK: Normal bulk and tone. 5/5 bell cleaner strength SKIN: No lesions, bruises, or rashes [...] initially hypertensive, but now normo-hypotensive. - Holding STORE SALES CONSULTANT lisinopril ?? Chronic diastolic heart failure: [...] 05/26/17. I discussed the case with the resident/DIRECTOR PRISON/fellow and agree with the findings and plan [...] knees MSK: Normal bulk and tone. 5/5 bell cleaner strength SKIN: No lesions, bruises, or rashes [...] initially hypertensive, but now normo-hypotensive. - Holding STORE SALES CONSULTANT lisinopril ?? Chronic diastolic heart failure: [...] knees MSK: Normal bulk and tone. 5/5 bell cleaner strength SKIN: No lesions, bruises, or rashes [...] initially hypertensive, but now normo-hypotensive. - Holding STORE SALES CONSULTANT lisinopril ?? Chronic diastolic heart failure: [...] Landry M.D., PGY-1 Internal Medicine Resident Pager [phone] 05/24/2017 10:04 Attestation statement: Supervising Physician I [...] knees MSK: Normal bulk and tone. 5/5 bell cleaner strength SKIN: No lesions, bruises, or rashes [...] initially hypertensive, but now normo-hypotensive. - Holding STORE SALES CONSULTANT lisinopril ?? Chronic diastolic heart failure: [...] Landry M.D., PGY-1 Internal Medicine Resident Pager [phone] 05/23/2017 9:11 Attestation statement: Supervising Physician. I [...] knees MSK: Normal bulk and tone. 5/5 bell cleaner strength SKIN: No lesions, bruises, or rashes [...] initially hypertensive, but now normo-hypotensive. - Holding STORE SALES CONSULTANT lisinopril ?? Chronic diastolic heart failure: [...] Landry M.D., PGY-1 Internal Medicine Resident Pager [phone] 05/22/2017 8:50 Attestation statement: I saw and [...] Chart: Yes, previous copy on file @ [facility] DIRECTIVES FOR FINANCES: TRANSPORTATION: Transportation: Family CULTURAL, JEW and/or LANGUAGE factors affecting health care/discharge planning: [...] AID - [address] - [place], [place] - [address] [facility] [phone] [facility] ([facility]) - [facility] [place] - [address] [facility] [address] [facility] [address] Home Health: Other: POST HOSPITAL TRANSITION PLAN: Plan d/c to his son, Catarina, house in [place] Desi Villatoro RN 05/21/2017 13:12 * Desi Villatoro RN - 05/21/2017 0928 EDT 05/21: Met with patient. Dr. Rosenberg is at the bedside. Plan will be pericardiocentesis and reposition of pacer lead. I will follow up with patient later today. Desi Villatoro RN [id number] * Jayne Landry MD - 05/21/2017 0708 EDT Cardiology Progress note Service Date: 05/21/2017 [...] knees MSK: Normal bulk and tone. 5/5 bell cleaner strength SKIN: No lesions, bruises, or rashes [...] will hold lisinopril for now. - Holding STORE SALES CONSULTANT lisinopril ?? Chronic diastolic heart failure: currently volume overloaded. Needs diuresis after resolution of pericardial effusion. - Holding Lasix/chlorthalidone in setting of pericardial effusion - Strict I&O - 1.2 L fluid restriction as above - Daily weights - Daily BUN, Cr VTE Prophylaxis Held pending pericardiocentesis Discharge Plan Uncertain at this time Jayne Landry M.D., PGY-1 Internal Medicine Resident Pager [phone] 05/21/2017 8:01 * Ester Yanes MD - 05/21/2017 0626 EDT PATIENT CONSENT TO CARDIOVASCULAR CATHETERIZATION OR [...] aft er the procedure. Ester Yanes MD Farm Equipment Technician PGY-5 05/20/2017 23:30 documented in this [...] smoker, 1-2 beers 1-2x/week, lives alone in [place] Allergies: Reviewed No Known Allergies Exam: General [...] will hold lisinopril for now. - Holding STORE SALES CONSULTANT lisinopril Chronic diastolic heart failure: with [...] outpatient, avoid thiazide diuretics Vladimir Crowe MD [facility] Transplant [employer] Staff[employer] Mgr of Transplant Programs 05/25/2017 11:46 * Vladimir [...] the assessment and plan. Vladimir Crowe MD [facility] Transplant [employer] Mgr of Transplant Programs 05/24/2017 12:32 * Elliot [...] TIME. PT IN ER ROOM 8, ON SEWING MACHINE ADJUSTER, NIBP, AND SPO2, ASSESSMENT NOTED, * Tony Navarro - 05/20/2017 2247 EDT Blood drawn via saline lock per protocol, tiger tube(s) sent to lab per order. * Laly Kim MD - 05/20/2017 2224 EDT DOS: 05/20/2017 Chief Complaint Patient presents with ??? Chest Pain Patient arrives as transfer from [facility] for pleuritic chest pain and new diagnosis CHF after pacemaker placement at [facility] two weeks ago. Dyspnea with exertion, breath sounds course crackles. Alert and oriented. HPI HPI Comments: I, Deana Bingham, am scribing for Laly Kim, * while he/she is personallyperforming the service. Deana Bingham 05/20/2017 22:25 David Mera is a 66 y.o. male with a history of heart block AV third degree, HTN, acute on chronic CHF, who presents as a transfer from [place] with pericardial effusion. Pt had pacemaker placed [...] appears to be a good tracing. Attending ager tender not available for acute interpretation. Radiology orders: [...] for problems Not Given Final Accession number [id number] Final CREATININE, URINE RANDOM SODIUM, URINE RANDOM [...] bolus. Evaluated in the ED by the research fellow. ASSESSMENT AND PLAN Final diagnoses: Hyponatremia Pericardial effusion DISPOSITION: Admitted Discussed case with cardiology resident/fellow (). Not evaluated by admitting attending in ED. Admitted to telemetry for further evaluation and definitive management. Condition on admission: Serious.Pain level at time of admission: 0 (). PCP: Katia Mccallum [facility] Number of Diagnoses or Management [...] discharge? Yes * Plan of Care - uRpert Earl RN - 05/26/2017 1332 EDT Problem: [...] Care - Sigrid Gordon RN - 05/25/2017 0536 EDT Problem: Daily Care [...] Care - Cici Tapia RN - 05/24/2017 1595 EDT Problem: Daily Care Plan Goals Goal: [...] ambulate with patient if time allows. Pierre Serarno RN 05/23/2017 18:30 * Plan of Care [...] 05/23/2017 0:42 * Plan of Care - Ciic Oconnell - 05/22/2017 1637 EDT Problem: Daily [...] SOB and pleuritic chest pain. Transferred from [facility]. Dx of peridcardial effusion, HTN, CHF, [...] diastolic congestive heart failure (CMS-HCC) ([facility]) Acute pericarditis, unspecified type Ordered: 05/27/2017 documented [...] 8:40 EDT) 06/02/2017 8:40 EDT Scan 2 Window Installation Subcontractor PROCEDURE/MINOR VELMA GICAL ORDERABLES * ECG REPORT - SCANNED (06/01/2017 12:46 EDT) 06/01/2017 12:4 6 EDT Scan 2 Window Installation Subcontractor PROCEDURE/MINOR VELMA GICAL ORDERABLES * ECG REPORT - SCANNED (05/30/2017 11:59 EDT) 05/30/2017 11:5 9 EDT Scan 2 Window Installation Subcontractor PROCEDURE/MINOR VELMA GICAL ORDERABLES * ECG REPORT - SCANNED (05/30/2017 11:17 EDT) 05/30/2017 11:1 7 EDT Scan 2 Window Installation Subcontractor PROCEDURE/MINOR VELMA GICAL ORDERABLES * ECG REPORT - SCANNED (05/30/2017 11:17 EDT) 05/30/2017 11:1 7 EDT Scan 2 Window Installation Subcontractor PROCEDURE/MINOR VELMA GICAL ORDERABLES * ECG REPORT - SCANNED (05/28/2017 10:02 EDT) 05/28/2017 10:0 2 EDT Scan 2 Window Installation Subcontractor PROCEDURE/MINOR VELMA GICAL ORDERABLES * ECG REPORT - SCANNED (05/27/2017 13:22 EDT) 05/27/2017 13:2 2 EDT Scan 2 Window Installation Subcontractor PROCEDURE/MINOR VELMA GICAL ORDERABLES * EKG 12-LEAD (05/27/2017 7:37 EDT) 05/27/2017 7:37 EDT Narrative [facility] EKG - 06/01/2017 12:41 EDT ? [facility] ? Test Date: ?2017-05-27 Pat Name: ? DAVID MERA ?Department: ?? JAME Chao ? Room: ? MW531 Gender: ? M ?Intensive Care Specialist: ?? [id number] : ?1950 ? Requested By: PRADIP MONET Order Number: [id number] ? Martha OAKES: ?? PIERRE RUBIO MD ? Measurements Intervals ?[place] ? Rate: ? 69 ? P: ?23 VA: ? 175 ?QRS: ?-58 QRSD: ? 193 [...] Note Pierre Rubio MD - 06/01/2017 [facility] Test Date: 2017-05-27 Pat Name: DAVID HULLEY Department: [place] [address] Room: [facility] Gender: M Intensive Care Specialist: [id number] : 1950 Requested By: PRADIP MONET Order Number: [id number] Reading MD: PIERRE RUBIO MD Measurements Intervals [place] Rate: 69 P: 23 VA: 175 QRS: -58 QRSD: 193 T: 189 QT: 528 QTc: 568 Interpretive Statements SINUS RHYTHM WITH ATRIAL TRACKING and VENTRICULAR PACING Compared to ECG 05/26/2017 07:29:50 No significant changes I reviewed the tracing and have either agreed or edited the findings inthis report. Electronically Signed On 06-01-17 12:41:22 EDT by PIERRE YEBOAH. Maria Antonia Zimmerman MD CARDIAC ECG ORDERABL ES Performing Organization Address [facility] de Phone Number [facility] EKG * (ABNORMAL) ELECTROLYTES (05/27/2017 5:57 EDT) Sodium 129(L) 136 - 145 mEq/L 05/27/2017 6:41 EDT [facility] Potassium 3.9 3.5 - 5.0 mEq/L 05/27/2017 6:41 EDT [facility] Chloride 87(L) 96 - 110 mEq/L 05/27/2017 6:41 EDT [facility] CO2 33(H) 22 - 32 mEq/L 05/27/2017 6:41 EDT [facility] Blood specimen (specimen) BLOOD SPECIMEN / Unknown 05/27/2017 5:57 EDT 05/27/2017 6:14 EDT Jayne Pozo MD CHEMISTRY & BLOOD GA S ORDERABLES Performing Organization Address [facility] de Phone Number [facility] [address] [place] [address] * BUN (05/27/2017 5:57 EDT) BUN 13 10 - 26 mg/dl 05/27/2017 6:41 EDT [facility] Blood specimen (specimen) BLOOD SPECIMEN / Unknown 05/27/2017 5:57 EDT 05/27/2017 6:14 EDT Jayne Pozo MD CHEMISTRY & BLOOD GA S ORDERABLES Performing Organization Address [facility] de Phone Number [facility] [address] [place] [address] * MAGNESIUM (05/27/2017 5:57 EDT) Magnesium 1.9 1.7 - 2.8 mg/dl 05/27/2017 6:41 EDT [facility] Blood specimen (specimen) BLOOD SPECIMEN / Unknown 05/27/2017 5:57 EDT 05/27/2017 6:14 EDT Jayne Pozo MD CHEMISTRY & BLOOD GA S ORDERABLES Performing Organization Address [facility] Co de Phone Number [facility] [address] [place] [address] * (ABNORMAL) CREATININE (05/27/2017 5:57 EDT) Creatinine 0.63(L) 0.66 - 1.25 mg/dl 05/27/2017 6:41 EDT [facility] GFR, Calculated 103 >60 ml/min/1.7 3m2 05/27/2017 6:41 EDT [facility] Comment: eGFR calculated using CKD-EPI equation for non Americans. Multiply eGFR by 1.16 for Americans. Blood specimen (specimen) BLOOD SPECIMEN / Unknown 05/27/2017 5:57 EDT 05/27/2017 6:14 EDT Jayne Pozo MD CHEMISTRY & BLOOD GA S ORDERABLES Performing Organization Address [facility] Co de Phone Number [facility] [address] [place] [address] * (ABNORMAL) HEMAGRAM (05/27/2017 5:57 EDT) WBC 6.74 4.0 - 10.4 K/cmm 05/27/2017 6:28 [facility] RBC 3.43(L) 4.36 - 5.78 M/cmm 05/27/2017 6:28 [facility] Hemoglobin 11.3(L) 13.8 - 17.3 gm/dl 05/27/2017 6:28 [facility] HCT 32.2(L) 39.5 - 50.2 % 05/27/2017 6:28 [facility] MCV 94 81 - 95 fl 05/27/2017 6:28 [facility] MCH 32.9 27.6 - 33.0 pg 05/27/2017 6:28 [facility] MCHC 35.1 32.8 - 36.4 gm/dl 05/27/2017 6:28 [facility] RDW-CV 11.3 <14.2 % 05/27/2017 6:28 EDT [facility] RDW-SD 38.4 <46.0 fl 05/27/2017 6:28 EDT [facility] PLT 308 141 - 377 K/cmm 05/27/2017 6:28 EDT [facility] MPV 10.4 9.5 - 12.7 fl 05/27/2017 6:28 EDT [facility] Blood specimen (specimen) BLOOD SPECIMEN / Unknown 05/27/2017 5:57 EDT 05/27/2017 6:14 EDT Jayne Pozo MD HEMATOLOGY & PF4 ORD ERABLES Performing Organization Address [facility] Co de Phone Number [facility] [address] [place] [address] * (ABNORMAL) NT PRO BNP (05/26/2017 17:55 EDT) NT Pro BNP 2,710(H) <300 pg/ml 05/26/2017 18:55 EDT [facility] Comment: Slight hemolysis Results [...] BLO OD GAS ORDERABLES Performing Organization Address [facility] Co de Phone Number [facility] [address] [place] [address] * (ABNORMAL) ELECTROLYTES (05/26/2017 17:55 EDT) Sodium 129(L) 136 - 145 mEq/L 05/26/2017 18:44 EDT [facility] Comment:Slight hemolysis Potassium 4.0 3.5 - 5.0 mEq/L 05/26/2017 18:44 EDT [facility] Comment: Slight hemolysis Hemolysis may elevate potassium result. Chloride 84(L) 96 - 110 mEq/L 05/26/2017 18:44 EDT [facility] Comment:Slight hemolysis CO2 35(H) 22 - 32 mEq/L 05/26/2017 18:44 EDT [facility] Comment:Slight hemolysis Blood specimen (specimen) BLOOD SPECIMEN / Unknown 05/26/2017 17:55 EDT 05/26/2017 18:18 EDT Jayne Pozo MD CHEMISTRY & BLOOD GA S ORDERABLES Performing Organization Address [facility] Co de Phone Number [facility] [address] [place] [address] * INPATIENT ADD-ON (05/26/2017 15:20 EDT) Tests to be added BNP 05/26/2017 15:19 EDT [facility] Number for problems [id number] 05/26/2017 15:32 EDT [facility] Accession number CALLED M5 WITH INABILITY TO PERFORM ADD ON DUE TO NO SUITABLE SAMPLE [id number] 05/26/2017 15:32 EDT [facility] TOPOGRAPHY UNKNOWN / Unknown 05/26/2017 15:20 EDT 05/26/2017 15:31 EDT Vini Mathis MD HEMATOLOGY & PF4 OR DERABLES Performing Organization Address City/[facility] Co de Phone Number [facility] [address] [place] [address] * LEGIONELLA ANTIGEN DETECTION, URINE (05/26/2017 14:04 EDT) Result No Legionella pneumophila serogroup 1 antigen detected. 05/26/2017 15:30 EDT [facility] Specimen of unknown material (specimen) URINE / Unknown 05/26/2017 14:04 EDT 05/26/2017 14:42 EDT Comment:Clean catch specimen Сергей Damico MD MICROBIOLOGY - GENER AL ORDERABLES Performing Organization Address City/[facility]/ZIP Co de Phone Number [facility] [address] [place] [address] * STREPTOCOCCUS PNEUMONIAE ANTIGEN, URINE (05/26/2017 14:04 EDT) Result No Strep pneumoniae antigen detected. 05/26/2017 15:29 EDT [facility] Specimen of unknown material (specimen) URINE / Unknown 05/26/2017 14:04 EDT 05/26/2017 14:42 EDT Comment:Clean catch specimen Сергей Damico MD MICROBIOLOGY - GENER AL ORDERABLES Performing Organization Address [facility] Co de Phone Number [facility] [address] [place] [address] * ECG REPORT - SCANNED (05/26/2017 12:53 EDT) 05/26/2017 12:5 3 EDT Scan 2 Window Installation Subcontractor PROCEDURE/MINOR VELMA GICAL ORDERABLES * CHEST PA [...] agree with the findings. Сергей Damico MD [facility] DIAGNOSTIC IMAGI NG ORDERABLES * BACTERIAL CULTURE/SMEAR, RESPIRATORY (05/26/2017 12:14 EDT) Gram Smear Result Mod Polys 05/26/2017 14:30 EDT [facility] Gram Smear Result Mod Squamous epithelial cells 05/26/2017 14:30 EDT [facility] Gram Smear Result Mod Mixed gram positive and gram negative organisms 05/26/2017 14:30 EDT [facility] Gram Smear Result Smear suggests contamination with saliva. ??Please submit additional specimen if clinically indicated. 05/26/2017 14:30 EDT [facility] Result See gram smear results. 05/26/2017 14:30 EDT [facility] Result Credit Issued 05/26/2017 14:30 EDT [facility] Specimen of unknown material (specimen) SPUTUM / Unknown 05/26/2017 12:14 EDT 05/26/2017 13:50 EDT Сергей Damico MD MICROBIOLOGY - GENER AL ORDERABLES Performing Organization Address [facility] Co de Phone Number [facility] [address] [place] [address] * RESPIRATORY VIRUS DETECTION (05/26/2017 11:57 EDT) Result No RSV, Influenza A, or Influenza B detected by PCR 05/28/2017 14:18 EDT [facility] Result No Metapneumovirus detected by PCR. 05/28/2017 14:18 EDT [facility] Result No Parainfluenza Virus Type 1,2 or 3 detected by PCR. This assay may have decrease sensitivity for Parainfluenza Virus Type 3. 05/28/2017 14:18 EDT [facility] NASOPHARYNGEAL STRUCTURE / Unknown 05/26/2017 11:57 EDT 05/26/2017 12:19 EDT Сергей Damico MD MICROBIOLOGY - GENER AL ORDERABLES Performing Organization Address City/[facility]/ZIP Co de Phone Number [facility] [address] [place] [address] * ECHOCARDIOGRAM LIMITED (05/26/2017 11:16 EDT) Anatomical Region Laterality Modality Other 05/26/2017 11:1 6 EDT Narrative 05/26/2017 11:25 EDT *Interpreting Group:* *[facility]* [address] [place] [address] Date of study: 05/26/2017 Transthoracic Echocardiography M-mode, [...] Rosenberg MD ORDERING ?Tony Rosenberg MD PERFORMING ??[facility], REFERRING ?? Katia Mccallum *PROCEDURE DATA* Procedure information: ??The patient was identified by two identifiers. This study was interpreted by [facility]. Pertinent images and [...] Andrade MD - 05/26/2017 *Interpreting Group:* *[facility]* [address] [place] [address] Date of study: 05/26/2017 Transthoracic Echocardiography M-mode, [...] identifiers. This study was interpreted by [facility]. Pertinent images and [...] (05/26/2017 7:29 EDT) 05/26/2017 7:[address] [facility] EKG - 05/27/2017 13:18 EDT ? [facility] ? Test Date: ?2017-05-26 Pat Name: ? DAVID MERA ?Department: ?? [address] ? Room: ? MW531 Gender: ? M ?Intensive Care Specialist: ?? [id number] : ?1950 ? Requested By: PRADIP MONET Order Number: [id number] ? Reading MD: ?? PETER ROLF MD ? Measurements Intervals ?[place] ? Rate: ? 73 ? P: ? VA: ? 0 ?QRS: ?-45 QRSD: ? 192 [...] Laly Dela Cruz MD - 05/27/2017 [facility] Test Date: 2017-05-26 Pat Name: DAVID MERA Department: [place] [address] Room: [facility] Gender: M Intensive Care Specialist: [id number] : 1950 Requested By: PRADIP MONET Order Number: [id number] Reading MD: LALY DELA CRUZ MD Measurements Intervals [place] Rate: 73 P: VA: 0 QRS: -45 QRSD: 192 T: 176 [...] Antonia Zimmerman MD CARDIAC ECG ORDERABL ES [facility] EKG * (ABNORMAL) ELECTROLYTES (05/26/2017 5:57 EDT) Sodium 128(L) 136 - 145 mEq/L 05/26/2017 6:54 EDT [facility] Potassium 3.7 3.5 - 5.0 mEq/L 05/26/2017 6:54 EDT [facility] Chloride 85(L) 96 - 110 mEq/L 05/26/2017 6:54 EDT [facility] CO2 35(H) 22 - 32 mEq/L 05/26/2017 6:54 EDT [facility] Blood specimen (specimen) BLOOD SPECIMEN / Unknown 05/26/2017 5:57 EDT 05/26/2017 6:26 EDT Jayne Pozo MD CHEMISTRY & BLOOD GA S ORDERABLES Performing Organization Address City/[facility]/ZIP Co de Phone Number [facility] [address] [place] [address] * (ABNORMAL) BUN (05/26/2017 5:57 EDT) BUN 9(L) 10 - 26 mg/dl 05/26/2017 6:54 EDT [facility] Blood specimen (specimen) BLOOD SPECIMEN / Unknown 05/26/2017 5:57 EDT 05/26/2017 6:26 EDT Jayne Pozo MD CHEMISTRY & BLOOD GA S ORDERABLES Performing Organization Address City/[facility]/ZIP Co de Phone Number [facility] [address] [place] [address] * MAGNESIUM (05/26/2017 5:57 EDT) Magnesium 1.8 1.7 - 2.8 mg/dl 05/26/2017 6:54 EDT [facility] Blood specimen (specimen) BLOOD SPECIMEN / Unknown 05/26/2017 5:57 EDT 05/26/2017 6:26 EDT Jayne Pozo MD CHEMISTRY & BLOOD GA S ORDERABLES Performing Organization Address City/[facility] Co de Phone Number [facility] [address] [place] [address] * (ABNORMAL) CREATININE (05/26/2017 5:57 EDT) Creatinine 0.53(L) 0.66 - 1.25 mg/dl 05/26/2017 6:54 EDT [facility] GFR, Calculated 110 >60 ml/min/1.7 3m2 05/26/2017 6:54 [facility] Comment: eGFR calculated using CKD-EPI equation for non Americans. Multiply eGFR by 1.16 for Americans. Blood specimen (specimen) BLOOD SPECIMEN / Unknown 05/26/2017 5:57 EDT 05/26/2017 6:26 EDT Jayne Pozo MD CHEMISTRY & BLOOD GA S ORDERABLES [facility] [address] [place] [address] * (ABNORMAL) HEMAGRAM (05/26/2017 5:57 EDT) WBC 7.06 4.0 - 10.4 K/cmm 05/26/2017 6:33 [facility] RBC 3.20(L) 4.36 - 5.78 M/cmm 05/26/2017 6:33 [facility] Hemoglobin 10.7(L) 13.8 - 17.3 gm/dl 05/26/2017 6:33 [facility] HCT 30.0(L) 39.5 - 50.2 % 05/26/2017 6:33 [facility] MCV 94 81 - 95 fl 05/26/2017 6:33 [facility] MCH 33.4(H) 27.6 - 33.0 pg 05/26/2017 6:33 [facility] MCHC 35.7 32.8 - 36.4 gm/dl 05/26/2017 6:33 [facility] RDW-CV 11.3 <14.2 % 05/26/2017 6:33 [facility] RDW-SD 38.4 <46.0 fl 05/26/2017 6:33 [facility] PLT 306 141 - 377 K/cmm 05/26/2017 6:33 [facility] MPV 10.3 9.5 - 12.7 fl 05/26/2017 6:33 [facility] Blood specimen (specimen) BLOOD SPECIMEN / Unknown 05/26/2017 5:57 EDT 05/26/2017 6:26 EDT Jayne Pozo MD HEMATOLOGY & PF4 ORD ERABLES Performing Organization Address [facility] Co de Phone Number [facility] [address] [place] [address] * (ABNORMAL) ELECTROLYTES (05/25/2017 17:58 EDT) Sodium 130(L) 136 - 145 mEq/L 05/25/2017 18:29 EDT [facility] Potassium 3.6 3.5 - 5.0 mEq/L 05/25/2017 18:29 EDT [facility] Chloride 83(L) 96 - 110 mEq/L 05/25/2017 18:29 EDT [facility] CO2 36(H) 22 - 32 mEq/L 05/25/2017 18:29 EDT [facility] Blood specimen (specimen) BLOOD SPECIMEN / Unknown 05/25/2017 17:58 EDT 05/25/2017 18:03 EDT Jayne Pozo MD CHEMISTRY & BLOOD GA S ORDERABLES Performing Organization Address [facility] Co de Phone Number [facility] [address] [place] [address] * OSMOLALITY, URINE (05/25/2017 14:29 EDT) Osmolality, Ur 284 150 - 1,150 mos/kg 05/25/2017 15:18 EDT [facility] Urine specimen (specimen) URINE / Unknown 05/25/2017 14:29 EDT 05/25/2017 14:37 EDT Luciano Christian MD URINALYSIS ORDERABLE S Performing Organization Address [facility] Co de Phone Number [facility] [address] [place] [address] * URINE ELECTROLYTES (05/25/2017 14:29 EDT) Chloride, Ur 41 mEq/L 05/25/2017 15:10 EDT [facility] Comment: Reference Range: No reference range available Potassium, Urine 31.1 mEq/L 05/25/2017 15:10 EDT [facility] Sodium, Ur 81.0 mEq/L 05/25/2017 15:10 EDT [facility] Urine specimen (specimen) URINE / Unknown 05/25/2017 14:29 EDT 05/25/2017 14:37 EDT Luciano Christian MD URINALYSIS ORDERABLE S [facility] [address] [place] [address] * EKG 12-LEAD (05/25/2017 7:40 EDT) 05/25/2017 7:40 EDT Narrative [facility] - 06/02/2017 8:35 EDT ? [facility] ? Test Date: ?2017-05-25 Pat Name: ? DAVID MERA ?Department: ?? [facility] ? Room: ? MW531 Gender: ? M ?Intensive Care Specialist: ?? [id number] : ?1950 ? Requested By: PRADIP MONET Order Number: [id number] ? Reading MD: ?? SENG PERSON SA, MD ? Measurements Intervals ?[place] ? Rate: ? 76 ? P: ?35 VA: ? 218 ?QRS: ?-47 QRSD: ? 188 [...] Seng Brody Sa, MD - 06/02/2017 [facility] Test Date: 2017-05-25 Pat Name: DAVID MERA Department: JAME Chao Room: [facility] Gender: M Intensive Care Specialist: [id number] : 1950 Requested By: PRADIP MONET Order Number: [id number] Reading MD: SENG ROBLEDO Measurements Intervals [place] Rate: 76 P: 35 VA: 218 QRS: -47 QRSD: 188 T: 193 [...] CARDIAC ECG ORDERABL ES Performing Organization Address City/[facility]/ZIP Co de Phone Number [facility] * (ABNORMAL) ELECTROLYTES (05/25/2017 5:59 EDT) Sodium 127(L) 136 - 145 mEq/L 05/25/2017 7:02 EDT [facility] Potassium 3.7 3.5 - 5.0 mEq/L 05/25/2017 7:02 EDT [facility] Chloride 85(L) 96 - 110 mEq/L 05/25/2017 7:02 EDT [facility] CO2 36(H) 22 - 32 mEq/L 05/25/2017 7:02 EDT [facility] Blood specimen (specimen) BLOOD SPECIMEN / Unknown 05/25/2017 5:59 EDT 05/25/2017 6:23 EDT Jayne Pozo MD CHEMISTRY & BLOOD GA S ORDERABLES [facility] [address] [place] [address] * (ABNORMAL) BUN (05/25/2017 5:59 EDT) BUN 9(L) 10 - 26 mg/dl 05/25/2017 7:02 EDT [facility] Blood specimen (specimen) BLOOD SPECIMEN / Unknown 05/25/2017 5:59 EDT 05/25/2017 6:23 EDT Jayne Pozo MD CHEMISTRY & BLOOD GA S ORDERABLES [facility] [address] [place] [address] * MAGNESIUM (05/25/2017 5:59 EDT) Magnesium 1.7 1.7 - 2.8 mg/dl 05/25/2017 7:02 EDT [facility] Blood specimen (specimen) BLOOD SPECIMEN / Unknown 05/25/2017 5:59 EDT 05/25/2017 6:23 EDT Jayne Pozo MD CHEMISTRY & BLOOD GA S ORDERABLES Performing Organization Address [facility] Co de Phone Number [facility] [address] [place] [address] * (ABNORMAL) CREATININE (05/25/2017 5:59 EDT) Creatinine 0.54(L) 0.66 - 1.25 mg/dl 05/25/2017 7:02 EDT [facility] GFR, Calculated 109 >60 ml/min/1.7 3m2 05/25/2017 7:02 EDT [facility] Comment: eGFR calculated using CKD-EPI equation for non Americans. Multiply eGFR by 1.16 for Americans. Blood specimen (specimen) BLOOD SPECIMEN / Unknown 05/25/2017 5:59 EDT 05/25/2017 6:23 EDT Jayne Pozo MD CHEMISTRY & BLOOD GA S ORDERABLES Performing Organization Address [facility] Co de Phone Number [facility] [address] [place] [address] * (ABNORMAL) HEMAGRAM (05/25/2017 5:59 EDT) WBC 6.99 4.0 - 10.4 K/cmm 05/25/2017 6:36 [facility] RBC 3.16(L) 4.36 - 5.78 M/cmm 05/25/2017 6:36 [facility] Hemoglobin 10.5(L) 13.8 - 17.3 gm/dl 05/25/2017 6:36 [facility] HCT 29.5(L) 39.5 - 50.2 % 05/25/2017 6:36 [facility] MCV 93 81 - 95 fl 05/25/2017 6:36 [facility] MCH 33.2(H) 27.6 - 33.0 pg 05/25/2017 6:36 [facility] MCHC 35.6 32.8 - 36.4 gm/dl 05/25/2017 6:36 [facility] RDW-CV 11.2 <14.2 % 05/25/2017 6:36 [facility] RDW-SD 38.8 <46.0 fl 05/25/2017 6:36 [facility] PLT 290 141 - 377 K/cmm 05/25/2017 6:36 [facility] MPV 10.7 9.5 - 12.7 fl 05/25/2017 6:36 [facility] Blood specimen (specimen) BLOOD SPECIMEN / Unknown 05/25/2017 5:59 EDT 05/25/2017 6:23 EDT Jayne Pozo MD HEMATOLOGY & PF4 ORD ERABLES [facility] [address] [place] [address] * (ABNORMAL) ELECTROLYTES (05/24/2017 18:02 EDT) Sodium 127(L) 136 - 145 mEq/L 05/24/2017 18:40 [facility] Potassium 3.7 3.5 - 5.0 mEq/L 05/24/2017 18:40 [facility] Chloride 80(L) 96 - 110 mEq/L 05/24/2017 18:40 EDT [facility] CO2 37(H) 22 - 32 mEq/L 05/24/2017 18:48 EDT [facility] Blood specimen (specimen) BLOOD SPECIMEN / Unknown 05/24/2017 18:02 EDT 05/24/2017 18:16 EDT Jayne Pozo MD CHEMISTRY & BLOOD GA S ORDERABLES [facility] [address] [place] [address] * EKG 12-LEAD (05/24/2017 7:22 EDT) 05/24/2017 7:22 EDT Narrative [facility] - 05/28/2017 9:56 EDT ? [facility] ? Test Date: ?2017-05-24 Pat Name: ? DAVID MERA ?Department: ?? [facility] ? Room: ? MW531 Gender: ? M ?Intensive Care Specialist: ?? [id number] : ?1950 ? Requested By: PRADIP MONET Order Number: [id number] ? Martha OAKES: ?? ERVIN WILHELM MD ? Measurements Intervals ?[place] ? Rate: ? 103 ?P: ?-19 VA: ? 232 ?QRS: ?-39 QRSD: ? 192 ?T: ?168 QT: ? 412 ? QTc: ?542 ? Interpretive Statements ELECTRONIC VENTRICULAR PACEMAKER Compared to ECG 05/23/2017 07:20:54 No significant changes I reviewed the tracing and have either agreed or edited the findings in this report. Electronically Signed On 05-28-17 09:56:53 EDT by ERVIN WILHELM MD. Procedure Note Ervin Wilhelm MD - 05/28/2017 [facility] Test Date: 2017-05-24 Pat Name: DAVID MERA Department: [facility] Room: [facility] Gender: M Intensive Care Specialist: [id number] : 1950 Requested By: PRADIP MONET Order Number: [id number] Reading MD: ERVIN WILHELM MD Measurements Intervals [place] Rate: 103 P: -19 VA: 232 QRS: -39 QRSD: 192 T: 168 QT: 412 QTc: 542 Interpretive Statements ELECTRONIC VENTRICULAR PACEMAKER Compared to ECG 05/23/2017 07:20:54 No significant changes I reviewed the tracing and have either agreed or edited the findings inthis report. Electronically Signed On 05-28-17 09:56:53 EDT by ERVIN MARCH. Maria Antonia Zimmerman MD CARDIAC ECG ORDERABL ES Performing Organization Address [facility] Co de Phone Number [facility] * (ABNORMAL) ELECTROLYTES (05/24/2017 5:51 EDT) Sodium 128(L) 136 - 145 mEq/L 05/24/2017 6:56 EDT [facility] Potassium 3.9 3.5 - 5.0 mEq/L 05/24/2017 6:56 EDT [facility] Chloride 83(L) 96 - 110 mEq/L 05/24/2017 6:56 EDT [facility] CO2 36(H) 22 - 32 mEq/L 05/24/2017 7:10 EDT [facility] Blood specimen (specimen) BLOOD SPECIMEN / Unknown 05/24/2017 5:51 EDT 05/24/2017 6:19 EDT Jayne Pozo MD CHEMISTRY & BLOOD GA S ORDERABLES Performing Organization Address [facility] de Phone Number [facility] [address] [place] [address] * (ABNORMAL) BUN (05/24/2017 5:51 EDT) BUN 9(L) 10 - 26 mg/dl 05/24/2017 6:56 EDT [facility] Blood specimen (specimen) BLOOD SPECIMEN / Unknown 05/24/2017 5:51 EDT 05/24/2017 6:19 EDT Jayne Pozo MD CHEMISTRY & BLOOD GA S ORDERABLES Performing Organization Address [facility] de Phone Number [facility] [address] [place] [address] * MAGNESIUM (05/24/2017 5:51 EDT) Magnesium 1.7 1.7 - 2.8 mg/dl 05/24/2017 6:56 EDT [facility] Blood specimen (specimen) BLOOD SPECIMEN / Unknown 05/24/2017 5:51 EDT 05/24/2017 6:19 EDT Jayne Pozo MD CHEMISTRY & BLOOD GA S ORDERABLES [facility] [address] [place] [address] * (ABNORMAL) CREATININE (05/24/2017 5:51 EDT) Creatinine 0.59(L) 0.66 - 1.25 mg/dl 05/24/2017 6:56 EDT [facility] GFR, Calculated 105 >60 ml/min/1.7 3m2 05/24/2017 6:56 EDT [facility] Comment: eGFR calculated using CKD-EPI equation for non Americans. Multiply eGFR by 1.16 for Americans. Blood specimen (specimen) BLOOD SPECIMEN / Unknown 05/24/2017 5:51 EDT 05/24/2017 6:19 EDT Jayne Pozo MD CHEMISTRY & BLOOD GA S ORDERABLES Performing Organization Address City/[facility]/ZIP Co de Phone Number [facility] [address] [place] [address] * (ABNORMAL) HEMAGRAM (05/24/2017 5:51 EDT) WBC 7.61 4.0 - 10.4 K/cmm 05/24/2017 6:30 EDT [facility] RBC 3.35(L) 4.36 - 5.78 M/cmm 05/24/2017 6:30 EDT [facility] Hemoglobin 11.0(L) 13.8 - 17.3 gm/dl 05/24/2017 6:30 EDT [facility] HCT 31.4(L) 39.5 - 50.2 % 05/24/2017 6:30 EDT [facility] MCV 94 81 - 95 fl 05/24/2017 6:30 EDT [facility] MCH 32.8 27.6 - 33.0 pg 05/24/2017 6:30 EDT [facility] MCHC 35.0 32.8 - 36.4 gm/dl 05/24/2017 6:30 EDT [facility] RDW-CV 11.4 <14.2 % 05/24/2017 6:30 T [facility] RDW-SD 39.0 <46.0 fl 05/24/2017 6:30 EDT [facility] PLT 273 141 - 377 K/cmm 05/24/2017 6:30 T [facility] MPV 10.9 9.5 - 12.7 fl 05/24/2017 6:30 EDT [facility] Blood specimen (specimen) BLOOD SPECIMEN / Unknown 05/24/2017 5:51 EDT 05/24/2017 6:19 EDT Jayne Pozo MD HEMATOLOGY & PF4 ORD ERABLES [facility] [address] [place] [address] * (ABNORMAL) ELECTROLYTES (05/23/2017 21:40 EDT) Sodium 128(L) 136 - 145 mEq/L 05/23/2017 22:23 EDT [facility] Potassium 3.6 3.5 - 5.0 mEq/L 05/23/2017 22:23 EDT [facility] Chloride 81(L) 96 - 110 mEq/L 05/23/2017 22:23 EDT [facility] CO2 38(H) 22 - 32 mEq/L 05/23/2017 22:56 EDT [facility] Blood specimen (specimen) BLOOD SPECIMEN / Unknown 05/23/2017 21:40 EDT 05/23/2017 21:45 EDT Jayne Pozo MD CHEMISTRY & BLOOD GA S ORDERABLES Performing Organization Address City/[facility] Co de Phone Number [facility] [address] [place] [address] * ECG REPORT - SCANNED (05/23/2017 15:08 EDT) 05/23/2017 15:0 8 EDT Scan 2 Window Installation Subcontractor PROCEDURE/MINOR VELMA GICAL ORDERABLES * (ABNORMAL) ELECTROLYTES (05/23/2017 12:16 EDT) Sodium 126(L) 136 - 145 mEq/L 05/23/2017 12:55 EDT [facility] Potassium 3.7 3.5 - 5.0 mEq/L 05/23/2017 12:55 EDT [facility] Chloride 81(L) 96 - 110 mEq/L 05/23/2017 12:55 EDT [facility] CO2 36(H) 22 - 32 mEq/L 05/23/2017 12:55 EDT [facility] Blood specimen (specimen) BLOOD SPECIMEN / Unknown 05/23/2017 12:16 EDT 05/23/2017 12:26 EDT Jayne Pozo MD CHEMISTRY & BLOOD GA S ORDERABLES Performing Organization Address [facility] Co de Phone Number [facility] [address] [place] [address] * ECG REPORT - SCANNED (05/23/2017 11:51 EDT) 05/23/2017 11:5 1 EDT Scan 2 Window Installation Subcontractor PROCEDURE/MINOR VELMA GICAL ORDERABLES * ECHOCARDIOGRAM LIMITED (05/23/2017 10:59 EDT) Anatomical Region Laterality Modality Other 05/23/2017 10:5 9 EDT Narrative 05/23/2017 11:19 EDT *Interpreting Group:* *[facility]* [address] [place] [address] Date of study: 05/23/2017 Transthoracic Echocardiography M-mode, [...] ?Akash Reyes MD ATTENDING ?Tony Rosenberg MD SPECIALTY PLANT SUPERVISOR ??Hali Del Real JUSTINO PERFORMING ?? Uvc, ORDERING ? Jayne Landry REFERRING ?Xena Katiacarrington Rodas *PROCEDURE DATA* Procedure information: ??This study was interpreted by [facility]. Pertinent images and digital data are archived for permanent storage and are available for subsequent review. Study status: ??Routine. Transthoracic echocardiography. ??M-mode, limited 2D, limited spectral Doppler, and color Doppler. A Transthoracic Echocardiogram was performed. Scanning was performed from the parasternal, apical, and subcostal acoustic windows. Images were obtained using an Polimaxq 10 cardiac ultrasound machine. Image quality was [...] Andrade MD - 05/23/2017 *Interpreting Group:* *[facility]* [address] [place] [address] Date of study: 05/23/2017 Transthoracic Echocardiography M-mode, [...] Akash Reyes MD ATTENDING Tony Rosenberg MD SPECIALTY PLANT SUPERVISOR Hali Del Real, [facility] PERFORMING [employer], Ip ORDERING Jayne Landry Katelyn Doran *PROCEDURE DATA* Procedure information: This study was interpreted by [facility]. Pertinent images and [...] EDT) 05/23/2017 10:4 2 EDT Scan 2 Window Installation Subcontractor PROCEDURE/MINOR VELMA GICAL ORDERABLES * FLUID DIFFERENTIAL (05/23/2017 7:47 EDT) Neutrophils, Fluid 30 % 05/23/2017 11:34 T [facility] Lymphocytes, Fluid 64 % 05/23/2017 11:34 EDT [facility] Mcminn/Macro, Fluid 5 % 05/23/2017 11:34 [facility] Eosinophil, Fluid 1 % 05/23/2017 11:34 [facility] PERICARDIAL FLUID AND CAVITY, CS / Unknown 05/23/2017 7:47 EDT 05/23/2017 8:18 EDT Сергей Damico MD GEN LAB UNIT COLLECT ORDERABLES Performing Organization Address City/[facility] Co de Phone Number [facility] [address] [place] [address] * FUNGUS CULTURE/SMEAR, OTHER (05/23/2017 7:47 EDT) Fungal Smear No fungi seen 05/23/2017 14:20 EDT [facility] Result No fungi isolated 05/30/2017 7:35 EDT [facility] FOSMIC PERICARDIAL FLUID AND CAVITY, CS / Unknown 05/23/2017 7:47 EDT 05/23/2017 9:17 EDT Comment:Markedly bloody Сергей Damico MD MICROBIOLOGY - GENER AL ORDERABLES Performing Organization Address [facility] Co de Phone Number [facility] [address] [place] [address] * ANAEROBE CULTURE/SMEAR(INC. AEROBES), FLUID (05/23/2017 7:47 EDT) Gram Smear Result Few Polys 05/23/2017 9:37 EDT [facility] Gram Smear Result No bacteria seen 05/23/2017 9:37 EDT [facility] Result No growth 05/25/2017 11:45 EDT [facility] FOSMIC PERICARDIAL FLUID AND CAVITY, CS / Unknown 05/23/2017 7:47 EDT 05/23/2017 9:16 EDT Comment:Markedly bloody Сергей Damico MD MICROBIOLOGY - GENER AL ORDERABLES Performing Organization Address [facility] Co de Phone Number [facility] [address] [place] [address] * HEMATOCRIT, BODY FLUID (05/23/2017 7:47 EDT) Hematocrit,Bod y Fld 6.5 % 05/23/2017 9:56 EDT [facility] Comment:PERICARDIAL FLUID [facility] PERICARDIAL FLUID AND CAVITY, CS / Unknown 05/23/2017 7:47 EDT 05/23/2017 8:18 EDT Сергей Damico MD GEN LAB UNIT COLLECT ORDERABLES Performing Organization Address City/[facility] Co de Phone Number [facility] [address] [place] [address] * FLUID CELL COUNT (05/23/2017 7:47 EDT) RBC, Fluid 661,000 /cmm 05/23/2017 9:41 EDT [facility] Nucleated Cells 1,773 /cmm 05/23/2017 9:41 EDT [facility] Fluid Comment Markedly bloody 05/23/2017 9:41 EDT [facility] PERICARDIAL FLUID AND CAVITY, CS / Unknown 05/23/2017 7:47 EDT 05/23/2017 8:18 EDT Сергей Damico MD GEN LAB UNIT COLLECT ORDERABLES Performing Organization Address [facility] Co de Phone Number [facility] [address] [place] [address] * TOTAL PROTEIN, FLUID (05/23/2017 7:47 EDT) Protein, Fluid 5.5 g/dl 05/23/2017 9:58 EDT [facility] Comment: Reference Range: Pleural [...] the blood, serum, or plasma is recommended. [facility] PERICARDIAL FLUID AND CAVITY, CS / Unknown 05/23/2017 7:47 EDT 05/23/2017 8:18 EDT Сергей Damico MD GEN LAB UNIT COLLECT ORDERABLES Performing Organization Address City/[facility] Co de Phone Number [facility] [address] [place] [address] * LDH, FLUID (05/23/2017 7:47 EDT) LDH, Fluid 2,337 U/L 05/23/2017 10:05 EDT [facility] Comment: Pleural fluid specimen [...] the blood, serum, or plasma is recommended. [facility] PERICARDIAL FLUID AND CAVITY, CS / Unknown 05/23/2017 7:47 EDT 05/23/2017 8:18 EDT Сергей Damico MD GEN LAB UNIT COLLECT ORDERABLES Performing Organization Address [facility] de Phone Number [facility] [address] [place] [address] * GLUCOSE, FLUID (05/23/2017 7:47 EDT) Glucose, Fluid 54 mg/dl 05/23/2017 9:58 EDT [facility] Comment: Reference Range: Pleural [...] the blood, serum, or plasma is recommended. [facility] PERICARDIAL FLUID AND CAVITY, CS / Unknown 05/23/2017 7:47 EDT 05/23/2017 8:18 EDT Сергей Damico MD GEN LAB UNIT COLLECT ORDERABLES Performing Organization Address City/[facility] Co de Phone Number [facility] [address] [place] [address] * ALBUMIN, FLUID (05/23/2017 7:47 EDT) Albumin, Fluid 2.5 g/dl 05/23/2017 9:58 EDT [facility] Comment: Reference Range: Pleural [...] the blood, serum, or plasma is recommended. [facility] PERICARDIAL FLUID AND CAVITY, CS / Unknown 05/23/2017 7:47 EDT 05/23/2017 8:18 EDT Сергей Damico MD GEN LAB UNIT COLLECT ORDERABLES Performing Organization Address City/[facility]/ZIP Co de Phone Number [facility] [address] [place] [address] * EKG 12-LEAD (05/23/2017 7:20 EDT) 05/23/2017 7:20 EDT Narrative [facility] E[facility] - 05/23/2017 11:45 EDT ? [facility] ? Test Date: ?2017-05-23 Pat Name: ? DAVID MERA ?Department: ?? [facility] ? Room: ? MW531 Gender: ? M ?Intensive Care Specialist: ?? [id number] : ?1950 ? Requested By: PRADIP MONET Order Number: [id number] ? Reading MD: ?? MARCO A FOX MD ? Measurements Intervals ?[place] ? Rate: ? 102 ?P: ? VA: ? 0 ?QRS: ?-20 QRSD: ? 189 ?T: ?178 QT: ? 398 ? QTc: ?519 ? Interpretive Statements ELECTRONIC VENTRICULAR PACEMAKER ABNORMAL RHYTHM ECG I reviewed the tracing and have either agreed or edited the findings in this report. Electronically Signed On 05-23-17 11:45:47 EDT by MARCO A FOX MD. Procedure Note Marco A Fox MD - 05/23/2017 [facility] Test Date: 2017-05-23 Pat Name: DAVID MERA Department: [place] [address] Room: [facility] Gender: M Intensive Care Specialist: [id number] : 1950 Requested By: PRADIP MONET Order Number: [id number] Martha MD: MARCO A FOX MD Measurements Intervals [place] Rate: 102 P: VA: 0 QRS: -20 QRSD: 189 T: 178 QT: 398 QTc: 519 Interpretive Statements ELECTRONIC VENTRICULAR PACEMAKER ABNORMAL RHYTHM ECG I reviewed the tracing and have either agreed or edited the findings inthis report. Electronically Signed On 05-23-17 11:45:47 EDT by MARCO A NGUYEN. Maria Antonia Zimmerman MD CARDIAC ECG ORDERABL ES [facility] EKG * (ABNORMAL) ELECTROLYTES (05/23/2017 6:42 EDT) Sodium 124(LL) 136 - 145 mEq/L 05/23/2017 7:45 EDT [facility] Potassium 3.5 3.5 - 5.0 mEq/L 05/23/2017 7:45 EDT [facility] Chloride 84(L) 96 - 110 mEq/L 05/23/2017 7:45 EDT [facility] CO2 33(H) 22 - 32 mEq/L 05/23/2017 7:45 EDT [facility] Blood specimen (specimen) BLOOD SPECIMEN / Unknown 05/23/2017 6:42 EDT 05/23/2017 7:16 EDT Jayne Pozo MD CHEMISTRY & BLOOD GA S ORDERABLES Performing Organization Address [facility] Co de Phone Number [facility] [address] [place] [address] * BUN (05/23/2017 6:42 EDT) BUN 10 10 - 26 mg/dl 05/23/2017 7:45 EDT [facility] Blood specimen (specimen) BLOOD SPECIMEN / Unknown 05/23/2017 6:42 EDT 05/23/2017 7:16 EDT Jayne Pozo MD CHEMISTRY & BLOOD GA S ORDERABLES Performing Organization Address [facility] de Phone Number [facility] [address] [place] [address] * MAGNESIUM (05/23/2017 6:42 EDT) Magnesium 1.7 1.7 - 2.8 mg/dl 05/23/2017 7:45 EDT [facility] Blood specimen (specimen) BLOOD SPECIMEN / Unknown 05/23/2017 6:42 EDT 05/23/2017 7:16 EDT Jayne Pozo MD CHEMISTRY & BLOOD GA S ORDERABLES Performing Organization Address [facility] Co de Phone Number [facility] [address] [place] [address] * (ABNORMAL) CREATININE (05/23/2017 6:42 EDT) Creatinine 0.50(L) 0.66 - 1.25 mg/dl 05/23/2017 7:45 EDT [facility] GFR, Calculated 113 >60 ml/min/1.7 3m2 05/23/2017 7:45 EDT [facility] Comment: eGFR calculated using CKD-EPI equation for non Americans. Multiply eGFR by 1.16 for Americans. Blood specimen (specimen) BLOOD SPECIMEN / Unknown 05/23/2017 6:42 EDT 05/23/2017 7:16 EDT Jayne Pozo MD CHEMISTRY & BLOOD GA S ORDERABLES [facility] [address] [place] [address] * (ABNORMAL) HEMAGRAM (05/23/2017 6:42 EDT) WBC 8.96 4.0 - 10.4 K/cmm 05/23/2017 7:24 [facility] RBC 3.30(L) 4.36 - 5.78 M/cmm 05/23/2017 7:24 [facility] Hemoglobin 11.0(L) 13.8 - 17.3 gm/dl 05/23/2017 7:24 [facility] HCT 30.8(L) 39.5 - 50.2 % 05/23/2017 7:24 [facility] MCV 93 81 - 95 fl 05/23/2017 7:24 [facility] MCH 33.3(H) 27.6 - 33.0 pg 05/23/2017 7:24 [facility] MCHC 35.7 32.8 - 36.4 gm/dl 05/23/2017 7:24 [facility] RDW-CV 11.3 <14.2 % 05/23/2017 7:24 [facility] RDW-SD 38.5 <46.0 fl 05/23/2017 7:24 [facility] PLT 254 141 - 377 K/cmm 05/23/2017 7:24 [facility] MPV 11.2 9.5 - 12.7 fl 05/23/2017 7:24 [facility] Blood specimen (specimen) BLOOD SPECIMEN / Unknown 05/23/2017 6:42 EDT 05/23/2017 7:16 EDT Jayne Pozo MD HEMATOLOGY & PF4 ORD ERABLES [facility] [address] [place] [address] * CYTOPATHOLOGY (05/23/2017 0:00 EDT) Pathology Report: CYTOPATHOLOGY REPORT Reports generated via electronic interface contain original data; however they are lacking the format of the original report. Caution should be taken when reading/interpret ing unformatted reports. Name: ? DAVID MERA ? Accession #: ? [id number] : ? 1950 (Age: 66) ??M ?Collect [...] cellular enhancement technique. ? End of Report [facility] 05/23/2017 05/23/2017 9:4 0 EDT Сергей Damico MD PATHOLOGY ORDERABLES Performing Organization Address [facility] de Phone Number [facility] [address] [place] [address] * (ABNORMAL) ELECTROLYTES (05/22/2017 23:40 EDT) Sodium 125(L) 136 - 145 mEq/L 05/23/2017 0:39 EDT [facility] Potassium 3.3(L) 3.5 - 5.0 mEq/L 05/23/2017 0:39 EDT [facility] Chloride 84(L) 96 - 110 mEq/L 05/23/2017 0:39 EDT [facility] CO2 33(H) 22 - 32 mEq/L 05/23/2017 0:39 EDT [facility] Blood specimen (specimen) BLOOD SPECIMEN / Unknown 05/22/2017 23:40 EDT 05/22/2017 23:58 EDT Jayne Pozo MD CHEMISTRY & BLOOD GA S ORDERABLES Performing Organization Address [facility] de Phone Number [facility] [address] [place] [address] * (ABNORMAL) ELECTROLYTES (05/22/2017 18:36 EDT) Sodium 124(LL) 136 - 145 mEq/L 05/22/2017 19:37 EDT [facility] Comment:Slight hemolysis Potassium 3.9 3.5 - 5.0 mEq/L 05/22/2017 19:37 EDT [facility] Comment: Slight hemolysis Hemolysis may elevate potassium result. Chloride 81(L) 96 - 110 mEq/L 05/22/2017 19:37 EDT [facility] Comment:Slight hemolysis CO2 32 22 - 32 mEq/L 05/22/2017 19:37 EDT [facility] Comment:Slight hemolysis Blood specimen (specimen) BLOOD SPECIMEN / Unknown 05/22/2017 18:36 EDT 05/22/2017 19:04 EDT Jayne Pozo MD CHEMISTRY & BLOOD GA S ORDERABLES [facility] [address] [place] [address] * CHEST PA AND LATERAL (05/22/2017 14:43 [...] 136 - 145 mEq/L 05/22/2017 13:23 EDT [facility] Comment:Moderate hemolysis Potassium 5.3(H) 3.5 - 5.0 mEq/L 05/22/2017 13:23 EDT [facility] Comment: Moderate hemolysis Hemolysis may elevate potassium result. Chloride 85(L) 96 - 110 mEq/L 05/22/2017 13:23 EDT [facility] Comment:Moderate hemolysis CO2 27 22 - 32 mEq/L 05/22/2017 13:23 EDT [facility] Comment:Moderate hemolysis Blood specimen (specimen) BLOOD SPECIMEN / Unknown 05/22/2017 12:36 EDT 05/22/2017 12:51 EDT Jayne Pozo MD CHEMISTRY & BLOOD GA S ORDERABLES Performing Organization Address City/[facility] Co de Phone Number [facility] [address] [place] [address] * BACTERIAL CULTURE, BLOOD (05/22/2017 9:58 EDT) Result No growth 05/27/2017 6:35 EDT [facility] Blood specimen (specimen) BLOOD SPECIMEN / Unknown 05/22/2017 9:58 EDT 05/22/2017 10:47 EDT Comment:Left~Hand~AEROBIC BL OOD CULTURE BOTTLE~Volume of blood collected may not be adequate for detection of bacteremia/septicemia.~2ND SET Jayne Pozo MD MICROBIOLOGY - GENER AL ORDERABLES Performing Organization Address [facility] Co de Phone Number [facility] [address] [place] [address] * BACTERIAL CULTURE, BLOOD (05/22/2017 9:58 EDT) Result No growth 05/27/2017 6:35 EDT [facility] Blood specimen (specimen) BLOOD SPECIMEN / Unknown 05/22/2017 9:58 EDT 05/22/2017 10:47 EDT Comment:Left~Hand~Total volu me of blood collected:~20 ml Jayne Pozo MD MICROBIOLOGY - GENER AL ORDERABLES Performing Organization Address [facility] Co de Phone Number [facility] [address] [place] [address] * EKG 12-LEAD (05/22/2017 8:04 EDT) 05/22/2017 8:04 EDT Narrative [facility] - 05/26/2017 12:50 EDT ? [facility] ? Test Date: ?2017-05-22 Pat Name: ? DAVID MERA ?Department: ?? JAME 5 ? Room: ? MW531 Gender: ? M ?Intensive Care Specialist: ?? [id number] : ?1950 ? Requested By: PRADIP MONET Order Number: [id number] ? Reading MD: ?? GAGAN RAMOS MD ? Measurements Intervals ?[place] ? Rate: ? 115 ?P: ?-20 VA: ? 237 ?QRS: ?-24 QRSD: ? 177 [...] Note Gagan Ramos MD - 05/26/2017 [facility] Test Date: 2017-05-22 Pat Name: DAVID MERA Department: [place] [address] Room: [facility] Gender: M Intensive Care Specialist: [id number] : 1950 Requested By: PRADIP MONET Order Number: [id number] Martha MD: GAGAN RAMOS MD Measurements Intervals [place] Rate: 115 P: -20 VA: 237 QRS: -24 QRSD: 177 T: 172 QT: 357 QTc: 496 Interpretive Statements ELECTRONIC VENTRICULAR PACEMAKER ABNORMAL RHYTHM ECG Compared to ECG 05/21/2017 20:29:55 No significant changes I reviewed the tracing and have either agreed or edited the findings inthis report. Electronically Signed On 05-26-17 12:50:27 EDT by GAGAN LEDESMA. Maria Antonia Zimmerman MD CARDIAC ECG ORDERABL ES [facility] * BUN (05/22/2017 4:09 EDT) BUN 11 10 - 26 mg/dl 05/22/2017 4:54 EDT [facility] Blood specimen (specimen) BLOOD SPECIMEN / Unknown 05/22/2017 4:09 EDT 05/22/2017 4:18 EDT Jayne Pozo MD CHEMISTRY & BLOOD GA S ORDERABLES Performing Organization Address City/[facility]/ZIP Co de Phone Number [facility] [address] [place] [address] * MAGNESIUM (05/22/2017 4:09 EDT) Magnesium 2.1 1.7 - 2.8 mg/dl 05/22/2017 4:54 EDT [facility] Blood specimen (specimen) BLOOD SPECIMEN / Unknown 05/22/2017 4:09 EDT 05/22/2017 4:18 EDT Jayne Pooz MD CHEMISTRY & BLOOD GA S ORDERABLES Performing Organization Address [facility] Co de Phone Number [facility] [address] [place] [address] * (ABNORMAL) CREATININE (05/22/2017 4:09 EDT) Creatinine 0.56(L) 0.66 - 1.25 mg/dl 05/22/2017 4:54 EDT [facility] GFR, Calculated 108 >60 ml/min/1.7 3m2 05/22/2017 4:54 EDT [facility] Comment: eGFR calculated using CKD-EPI equation for non Americans. Multiply eGFR by 1.16 for Americans. Blood specimen (specimen) BLOOD SPECIMEN / Unknown 05/22/2017 4:09 EDT 05/22/2017 4:18 EDT Jayne Pozo MD CHEMISTRY & BLOOD GA S ORDERABLES Performing Organization Address [facility]/ZIP Co de Phone Number [facility] [address] [place] [address] * (ABNORMAL) HEMAGRAM (05/22/2017 4:09 EDT) WBC 10.75(H) 4.0 - 10.4 K/cmm 05/22/2017 4:37 EDT [facility] RBC 3.70(L) 4.36 - 5.78 M/cmm 05/22/2017 4:37 T [facility] Hemoglobin 12.2(L) 13.8 - 17.3 gm/dl 05/22/2017 4:37 T [facility] HCT 34.1(L) 39.5 - 50.2 % 05/22/2017 4:37 [facility] MCV 92 81 - 95 fl 05/22/2017 4:37 [facility] MCH 33.0 27.6 - 33.0 pg 05/22/2017 4:37 [facility] MCHC 35.8 32.8 - 36.4 gm/dl 05/22/2017 4:37 [facility] RDW-CV 10.9 <14.2 % 05/22/2017 4:37 [facility] RDW-SD 37.2 <46.0 fl 05/22/2017 4:37 [facility] PLT 294 141 - 377 K/cmm 05/22/2017 4:37 [facility] MPV 10.7 9.5 - 12.7 fl 05/22/2017 4:37 [facility] Blood specimen (specimen) BLOOD SPECIMEN / Unknown 05/22/2017 4:09 EDT 05/22/2017 4:18 EDT Jayne Pozo MD HEMATOLOGY & PF4 ORD ERABLES [facility] [address] [place] [address] * (ABNORMAL) ELECTROLYTES (05/22/2017 4:09 EDT) Sodium 122(LL) 136 - 145 mEq/L 05/22/2017 4:54 T [facility] Potassium 4.0 3.5 - 5.0 mEq/L 05/22/2017 4:54 EDT [facility] Chloride 84(L) 96 - 110 mEq/L 05/22/2017 4:54 EDT [facility] CO2 29 22 - 32 mEq/L 05/22/2017 4:54 EDT [facility] Blood specimen (specimen) BLOOD SPECIMEN / Unknown 05/22/2017 4:09 EDT 05/22/2017 4:18 EDT Maria Antonia Zimmerman MD CHEMISTRY & BLOOD GA S ORDERABLES Performing Organization Address [facility] de Phone Number [facility] [address] [place] [address] * (ABNORMAL) ELECTROLYTES (05/22/2017 0:23 EDT) Sodium 120(LL) 136 - 145 mEq/L 05/22/2017 1:00 EDT [facility] Potassium 3.4(L) 3.5 - 5.0 mEq/L 05/22/2017 1:00 EDT [facility] Chloride 83(L) 96 - 110 mEq/L 05/22/2017 1:00 EDT [facility] CO2 31 22 - 32 mEq/L 05/22/2017 1:00 EDT [facility] Blood specimen (specimen) BLOOD SPECIMEN / Unknown 05/22/2017 0:23 EDT 05/22/2017 0:27 EDT Maria Antonia Zimmerman MD CHEMISTRY & BLOOD GA S ORDERABLES Performing Organization Address [facility] Co de Phone Number [facility] [address] [place] [address] * EKG 12-LEAD (05/21/2017 20:29 EDT) 05/21/2017 20:2 9 EDT Narrative [facility] - 05/30/2017 11:55 EDT ? [facility] ? Test Date: ?2017-05-21 Pat Name: ? DAVID MERA ?Department: ?? [facility] 5 ? Room: ? MW531 Gender: ? M ?Intensive Care Specialist: ?? [id number] : ?1950 ? Requested By: RBOLES Cabral Order Number: [id number] ? Reading MD: ?? ASHLEY CONSUELO MD ? Measurements Intervals ?[place] ? Rate: ? 109 ?P: ? VA: ? 0 ?QRS: ?-41 QRSD: ? 179 [...] Ashley Edwards Jr., MD - 05/30/2017 [facility] Test Date: 2017-05-21 Pat Name: DAVID MERA Department: [place] [address] Room: [facility] Gender: M Intensive Care Specialist: [id number] : 1950 Requested By: ROBLES Cabral Order Number: [id number] Reading MD: ASHLEY EDWARDS MD Measurements Intervals [place] Rate: 109 P: VA: 0 QRS: -41 QRSD: 179 T: 175 QT: 391 QTc: 528 Interpretive Statements ELECTRONIC VENTRICULAR PACEMAKER ABNORMAL RHYTHM ECG Compared to ECG 05/21/2017 07:12:25 No significant changes I reviewed the tracing and have either agreed or edited the findings inthis report. Electronically Signed On 05-30-17 11:55:09 EDT by ASHLEY RAI. Seng Rand MD PhD CARDIA C ECG ORDERABLES [facility] E[facility] * PORTABLE CHEST 1 VIEW [...] 136 - 145 mEq/L 05/21/2017 20:54 EDT [facility] Potassium 3.7 3.5 - 5.0 mEq/L 05/21/2017 20:54 EDT [facility] Chloride 79(L) 96 - 110 mEq/L 05/21/2017 20:54 EDT [facility] CO2 32 22 - 32 mEq/L 05/21/2017 20:54 EDT [facility] Blood specimen (specimen) BLOOD SPECIMEN / Unknown 05/21/2017 20:08 EDT 05/21/2017 20:28 EDT Maria Antonia Zimmerman MD CHEMISTRY & BLOOD GA S ORDERABLES [facility] [address] [place] [address] * PERMANENT PACEMAKER PROCEDURE (05/21/2017 19:42 EDT) Anatomical Region Laterality Modality Other 05/21/2017 19:4 2 EDT Narrative 05/21/2017 20:01 EDT *Cardiology* [address] [place] [address] Lead Revision Patient: David Mera ? Study Date: ?05/21/2017 ? Accession #: ? [id number] : ? 1950 Referring: Katia Mccallum Attending: [...] and the lead was extracted. A 7 Faroese safety sheath was advanced over the wire [...] topical skin adhesive. IMPLANTED HARDWARE: Implanted device: En[employer]i - [employer] [facility] - Serial number: [id number]. Implanted originally on 05-02-2017. LEAD PARAMETERS + + + + + Lead # ? 1 ? 1 ? 2 ? + + + + + Chamber ? RA ? RA ? RV ? + + + + + Date implanted ?? 05/02/2017 ? 05/21/2017 ? 05/02/2017 ? + + + + + Model ? [employer] Medtronic Select Ladora Sci 1820 ?? information ? 7705 ? Secure-59 [id number] ? + + + + + Serial number ?? [id number] ? [id number] ? [id number] ? + + + + + Location [...] Seng Rand MD - 05/21/2017 *Cardiology* [address] [place] [address] Lead Revision Patient: David Mera Study Date: [...] and the lead was extracted. A 7 Faroese safety sheath was advanced over the wire [...] topical skin adhesive. IMPLANTED HARDWARE: Implanted device: Ladora Mathew - [employer] - Serial number: [id number]. Implanted originally on 05-02-2017. LEAD PARAMETERS + + + + + Lead # 1 1 2 + + + + + Chamber RA RA RV + + + + + Date implanted 05/02/2017 05/21/2017 05/02/2017 + + + + + Model [employer] Medtronic Select Ladora Sci 7742 information 7740 Secure-59 [id number] + + + + + Serial number [id number] + + + + + Location RA [...] be added FREE T4,TSH 05/21/2017 18:16 EDT [facility] Number for problems [id number] 05/21/2017 18:23 EDT [facility] Accession number [id number] 05/21/2017 18:23 EDT [facility] TOPOGRAPHY UNKNOWN / Unknown 05/21/2017 18:20 EDT 05/21/2017 18:22 EDT Jayesh Garcia MD HEMATOLOGY & PF4 O RDERABLES [facility] [address] [place] [address] * CREATININE, URINE RANDOM (05/21/2017 18:20 EDT) Creatinine, Urn [place] 26.2 mg/dl 05/21/2017 21:25 EDT [facility] Urine specimen (specimen) URINE / Unknown 05/21/2017 18:20 EDT 05/21/2017 21:06 EDT Jayesh Garcia MD URINALYSIS ORDERAB LES Performing Organization Address [facility] Co de Phone Number [facility] [address] [place] [address] * PROTEIN, TOTAL, RANDOM, URINE (05/21/2017 18:20 EDT) Tot Prot,Ur Random 21 mg/dl 05/21/2017 21:25 EDT [facility] Urine specimen (specimen) URINE / Unknown 05/21/2017 18:20 EDT 05/21/2017 21:06 EDT Jayesh Garcia MD URINALYSIS ORDERAB LES Performing Organization Address [facility] de Phone Number [facility] [address] [place] [address] * ECHOCARDIOGRAM LIMITED (05/21/2017 18:19 EDT) Anatomical Region Laterality Modality Other 05/21/2017 18:1 9 EDT Narrative 05/22/2017 8:34 EDT *Interpreting Group:* *[facility]* [address] [place] [address] Date of study: 05/21/2017 Transthoracic Echocardiography M-mode, [...] stop time: ??07:33 PM. PERFORMING ?? [employer], SPECIALTY PLANT SUPERVISOR ??Emilia Corey RDCS *PROCEDURE DATA* Procedure information: ??This study was interpreted by [facility]. Pertinent images and digital data are archived for permanent storage and are available for subsequent review. Study status: ??STAT. Transthoracic echocardiography. ??M-mode, limited 2D, limited spectral Doppler, and color Doppler. A Transthoracic Echocardiogram was performed. Scanning was performed from the parasternal, apical, and subcostal acoustic windows. Images were obtained using an Polimaxq 13 cardiac ultrasound machine. Image quality was [...] Rubio MD - 05/22/2017 *Interpreting Group:* *[facility]* [address] [place] [address] Date of study: 05/21/2017 Transthoracic Echocardiography M-mode, [...] Test stop time: 07:33 PM. PERFORMING [employer], SPECIALTY PLANT SUPERVISOR Emilia Corey RDCS *PROCEDURE DATA* Procedure information: This study was interpreted by [facility]. Pertinent images and [...] 0.47 - 4.68 uIU/ml 05/21/2017 19:42 EDT [facility] BLOOD SPECIMEN / Unknown 05/21/2017 14:02 EDT 05/21/2017 14:12 EDT Maria Antonia Zimmerman MD CHEMISTRY & BLOOD GA S ORDERABLES [facility] [address] [place] [address] * T4 FREE (05/21/2017 14:02 EDT) T4, Free 1.5 0.8 - 2.2 ng/dl 05/21/2017 19:29 EDT [facility] BLOOD SPECIMEN / Unknown 05/21/2017 14:02 EDT 05/21/2017 14:12 EDT Maria Antonia Zimmerman MD CHEMISTRY & BLOOD GA S ORDERABLES Performing Organization Address City/[facility] Co de Phone Number [facility] [address] [place] [address] * (ABNORMAL) ELECTROLYTES (05/21/2017 14:02 EDT) Sodium 116(LL) 136 - 145 mEq/L 05/21/2017 14:53 EDT [facility] Potassium 4.1 3.5 - 5.0 mEq/L 05/21/2017 14:53 EDT [facility] Chloride 78(L) 96 - 110 mEq/L 05/21/2017 14:53 EDT [facility] CO2 28 22 - 32 mEq/L 05/21/2017 14:53 EDT [facility] Blood specimen (specimen) BLOOD SPECIMEN / Unknown 05/21/2017 14:02 EDT 05/21/2017 14:12 EDT Maria Antonia Zimmerman MD CHEMISTRY & BLOOD GA S ORDERABLES Performing Organization Address City/[facility]/ZIP Co de Phone Number [facility] [address] [place] [address] * ECHOCARDIOGRAM (05/21/2017 10:30 EDT) Anatomical Region Laterality Modality Other 05/21/2017 10:3 0 EDT Narrative 05/21/2017 10:48 EDT *Interpreting Group:* *[facility]* [address] [place] [address] Date of study: 05/21/2017 Transthoracic Echocardiography M-mode, [...] [employer], Ip ORDERING ? Maria Antonia Zimmerman SPECIALTY PLANT SUPERVISOR ??Jose G Bauer REFERRING ?Katia Mccallum *PROCEDURE DATA* Procedure information: ??The patient was identified by two identifiers. This study was interpreted by [facility]. Pertinent images and [...] Andrade MD - 05/21/2017 *Interpreting Group:* *[facility]* [address] [place] [address] Date of study: 05/21/2017 Transthoracic Echocardiography M-mode, [...] PERFORMING [employer], Ip ORDERING Maria Antonia Zimmerman SPECIALTY PLANT SUPERVISOR Jose G Bauer Katelyn Doran *PROCEDURE DATA* Procedure information: The patient was identified by two identifiers. This study was interpreted by [facility]. Pertinent images and [...] 117(LL) 136 - 145 mEq/L 05/21/2017 11:15 [facility] Potassium 3.7 3.5 - 5.0 mEq/L 05/21/2017 11:15 [facility] Chloride 77(L) 96 - 110 mEq/L 05/21/2017 11:15 [facility] CO2 30 22 - 32 mEq/L 05/21/2017 11:15 [facility] Blood specimen (specimen) BLOOD SPECIMEN / Unknown 05/21/2017 9:55 EDT 05/21/2017 10:59 EDT Maria Antonia Zimmerman MD CHEMISTRY & BLOOD GA S ORDERABLES [facility] [address] [place] [address] * EKG 12-LEAD (05/21/2017 7:12 EDT) 05/21/2017 7:12 EDT Narrative [facility] - 05/23/2017 15:04 EDT ? [facility] ? Test Date: ?2017-05-21 Pat Name: ? DAVID MERA ?Department: ?? [facility] 5 ? Room: ? MW531 Gender: ? M ?Intensive Care Specialist: ?? [id number] : ?1950 ? Requested By: PRADIP MONET Order Number: [id number] ? Martha OAKES: ?? SENG PERSON SA, MD ? Measurements Intervals ?[place] ? Rate: ? 75 ? P: ?31 VA: ? 173 ?QRS: ?-73 QRSD: ? 183 [...] Seng Brody Sa, MD - 05/23/2017 [facility] Test Date: 2017-05-21 Pat Name: DAVID MERA Department: [place] [address] Room: [facility] Gender: M Intensive Care Specialist: [id number] : 1950 Requested By: PRADIP MONET Order Number: [id number] Martha MD: SENG ROBLEDO Measurements Intervals [place] Rate: 75 P: 31 VA: 173 QRS: -73 QRSD: 183 T: 174 [...] Antonia Zimmerman MD CARDIAC ECG ORDERABL ES [facility] * INPATIENT ADD-ON (05/21/2017 6:55 EDT) Tests to be added MAGNESIUM 05/21/2017 6:53 EDT [facility] Number for problems [id number] 05/21/2017 7:10 EDT [facility] Accession number [id number] 05/21/2017 7:10 EDT [facility] TOPOGRAPHY UNKNOWN / Unknown 05/21/2017 6:55 EDT 05/21/2017 7:10 EDT Maria Antonia Zimmerman MD HEMATOLOGY & PF4 ORD ERABLES Performing Organization Address City/[facility] Co de Phone Number [facility] [address] [place] [address] * INPATIENT ADD-ON (05/21/2017 6:40 EDT) Tests to be added ALT,ALK PHOS,AST,T OTAL BILI,ALBUM IN 05/21/2017 6:38 EDT [facility] Number for problems [id number] 05/21/2017 6:50 EDT [facility] Accession number [id number] 05/21/2017 6:50 EDT [facility] TOPOGRAPHY UNKNOWN / Unknown 05/21/2017 6:40 EDT 05/21/2017 6:49 EDT Maria Antonia Zimmerman MD HEMATOLOGY & PF4 ORD ERABLES [facility] [address] [place] [address] * MAGNESIUM (05/21/2017 5:57 EDT) Magnesium 1.8 1.7 - 2.8 mg/dl 05/21/2017 7:53 EDT [facility] BLOOD SPECIMEN / Unknown 05/21/2017 5:57 EDT 05/21/2017 6:09 EDT Maria Antonia Zimmerman MD CHEMISTRY & BLOOD GA S ORDERABLES Performing Organization Address City/[facility]/ZIP Co de Phone Number [facility] [address] [place] [address] * BILIRUBIN, TOTAL (05/21/2017 5:57 EDT) Bilirubin, Total 0.6 <1.4 mg/dl 05/21/2017 7:30 EDT [facility] BLOOD SPECIMEN / Unknown 05/21/2017 5:57 EDT 05/21/2017 6:09 EDT Maria Antonia Zimmerman MD CHEMISTRY & BLOOD GA S ORDERABLES Performing Organization Address [facility]/ZIP Co de Phone Number [facility] [address] [place] [address] * AST (05/21/2017 5:57 EDT) Pathologist [facility] AST 33 15 - 46 U/L 05/21/2017 7:30 EDT [facility] BLOOD SPECIMEN / Unknown 05/21/2017 5:57 EDT 05/21/2017 6:09 EDT Maria Antonia Zimmerman MD CHEMISTRY & BLOOD GA S ORDERABLES Performing Organization Address [facility] Co de Phone Number [facility] [address] [place] [address] * ALT (05/21/2017 5:57 EDT) ALT 39 21 - 72 U/L 05/21/2017 7:30 EDT [facility] BLOOD SPECIMEN / Unknown 05/21/2017 5:57 EDT 05/21/2017 6:09 EDT Maria Antonia Zimmerman MD CHEMISTRY & BLOOD GA S ORDERABLES Performing Organization Address City/[facility]/ZIP Co de Phone Number [facility] [address] [place] [address] * ALKALINE PHOSPHATASE (05/21/2017 5:57 EDT) Total Alkaline Phosphatase 81 38 - 126 U/L 05/21/2017 7:30 EDT [facility] BLOOD SPECIMEN / Unknown 05/21/2017 5:57 EDT 05/21/2017 6:09 EDT Maria Antonia Zimmerman MD CHEMISTRY & BLOOD GA S ORDERABLES Performing Organization Address [facility] Co de Phone Number [facility] [address] [place] [address] * (ABNORMAL) ALBUMIN (05/21/2017 5:57 EDT) Albumin 3.0(L) 3.4 - 4.9 g/dl 05/21/2017 7:30 EDT [facility] BLOOD SPECIMEN / Unknown 05/21/2017 5:57 EDT 05/21/2017 6:09 EDT Maria Antonia Zimmerman MD CHEMISTRY & BLOOD GA S ORDERABLES Performing Organization Address [facility] Co de Phone Number [facility] [address] [place] [address] * (ABNORMAL) ELECTROLYTES (05/21/2017 5:57 EDT) Sodium 117(LL) 136 - 145 mEq/L 05/21/2017 6:47 EDT [facility] Potassium 3.5 3.5 - 5.0 mEq/L 05/21/2017 6:47 EDT [facility] Chloride 76(L) 96 - 110 mEq/L 05/21/2017 6:47 EDT [facility] CO2 31 22 - 32 mEq/L 05/21/2017 6:47 EDT [facility] Blood specimen (specimen) BLOOD SPECIMEN / Unknown 05/21/2017 5:57 EDT 05/21/2017 6:12 EDT Maria Antonia Zimmerman MD CHEMISTRY & BLOOD GA S ORDERABLES Performing Organization Address [facility]/ZIP Co de Phone Number [facility] [address] [place] [address] * (ABNORMAL) PROTIME (05/21/2017 5:57 EDT) Pro Time 16.3(H) 10.3 - 13.4 secs 05/21/2017 6:30 EDT [facility] Comment:NOTE NEW REFERENCE R ANTONIETA OF APR 03 2017 I.N.R. 1.4(H) 0.9 - 1.1 Ratio 05/21/2017 6:30 EDT [facility] Comment: Moderate Intensity Coumadin INR = 2.0-3.0 Adjustments in anticoagulant therapy dose should be based upon the INR and NOT the Pro Time. Blood specimen (specimen) BLOOD SPECIMEN / Unknown 05/21/2017 5:57 EDT 05/21/2017 6:09 EDT Maria Antonia Zimmerman MD HEMATOLOGY & PF4 ORD ERABLES Performing Organization Address [facility] Co de Phone Number [facility] [address] [place] [address] * HIV 1/2 ANTIGEN AND ANTIBODY, 4TH GENERATION (05/21/2017 5:57 EDT) [facility] HIV 1/2 Antibody Negative Negative 05/22/19 18 11:32 EDT [facility] Comment: Fourth generation assay performed on the Lalinaaur. If acute HIV-1 infection is suspected in a high risk patient, submit plasma specimen for HIV-1 RNA quantification test. Blood specimen (specimen) BLOOD SPECIMEN / Unknown 05/21/2017 5:57 EDT 05/21/2017 6:09 EDT Maria Antonia Zimmerman MD IMMUNOLOGY AND SEROL OGY ORDERABLES Performing Organization Address City/[facility] Co de Phone Number [facility] [address] [place] [address] * (ABNORMAL) BUN (05/21/2017 5:57 EDT) BUN 5(L) 10 - 26 mg/dl 05/21/2017 6:34 EDT [facility] Blood specimen (specimen) BLOOD SPECIMEN / Unknown 05/21/2017 5:57 EDT 05/21/2017 6:09 EDT Maria Antonia Zimmerman MD CHEMISTRY & BLOOD GA S ORDERABLES Performing Organization Address City/[facility] Co de Phone Number [facility] [address] [place] [address] * (ABNORMAL) CREATININE (05/21/2017 5:57 EDT) Creatinine 0.43(L) 0.66 - 1.25 mg/dl 05/21/2017 6:34 EDT [facility] GFR, Calculated 120 >60 ml/min/1.7 3m2 05/21/2017 6:34 EDT [facility] Comment: eGFR calculated using CKD-EPI equation for non Americans. Multiply eGFR by 1.16 for Americans. Blood specimen (specimen) BLOOD SPECIMEN / Unknown 05/21/2017 5:57 EDT 05/21/2017 6:09 EDT Maria Antonia Zimmerman MD CHEMISTRY & BLOOD GA S ORDERABLES Performing Organization Address City/[facility] Co de Phone Number [facility] [address] [place] [address] * (ABNORMAL) HEMAGRAM AND DIFFERENTIAL (05/21/2017 5:57 EDT) WBC 6.90 4.0 - 10.4 K/cmm 05/21/2017 6:30 EDT [facility] RBC 3.25(L) 4.36 - 5.78 M/cmm 05/21/2017 6:30 EDT [facility] Hemoglobin 10.9(L) 13.8 - 17.3 gm/dl 05/21/2017 6:30 EDT [facility] HCT 29.7(L) 39.5 - 50.2 % 05/21/2017 6:30 [facility] MCV 91 81 - 95 fl 05/21/2017 6:30 [facility] MCH 33.5(H) 27.6 - 33.0 pg 05/21/2017 6:30 [facility] MCHC 36.7(H) 32.8 - 36.4 gm/dl 05/21/2017 6:30 [facility] RDW-CV 10.6 <14.2 % 05/21/2017 6:30 [facility] RDW-SD 36.1 <46.0 fl 05/21/2017 6:30 [facility] PLT 266 141 - 377 K/cmm 05/21/2017 6:30 [facility] MPV 10.7 9.5 - 12.7 fl 05/21/2017 6:30 [facility] % Neutrophils 61.6 % 05/21/2017 6:30 [facility] % Lymphocytes 19.0 % 05/21/2017 6:30 [facility] % Monocytes 16.7 % 05/21/2017 6:30 [facility] % Eosinophils 1.6 % 05/21/2017 6:30 [facility] % Basophils 0.7 % 05/21/2017 6:30 [facility] % Immature Grans 0.4 % 05/21/2017 6:30 [facility] ABS Neutrophils 4.25 2.20 - 8.85 K/cmm 05/21/2017 6:30 [facility] ABS Lymphs 1.31 1.09 - 3.30 K/cmm 05/21/2017 6:30 [facility] ABS Monocytes 1.15(H) 0.1 - 0.8 K/cmm 05/21/2017 6:30 [facility] ABS Eosinophils 0.11 0.03 - 0.61 K/cmm 05/21/2017 6:30 [facility] ABS Basophils 0.05 0.01 - 0.11 K/cmm 05/21/2017 6:30 EDT [facility] ABS Immature Grans 0.03 0 - 0.06 K/cmm 05/21/2017 6:30 EDT [facility] Type of Diff: Automated 05/21/2017 6:30 EDT [facility] Blood specimen (specimen) BLOOD SPECIMEN / Unknown 05/21/2017 5:57 EDT 05/21/2017 6:09 EDT Maria Antonia Zimmerman MD PACKAGES & DNA PROBE ORDERABLES Performing Organization Address [facility] de Phone Number [facility] [address] [place] [address] * (ABNORMAL) ELECTROLYTES (05/21/2017 3:28 EDT) Sodium 116(LL) 136 - 145 mEq/L 05/21/2017 4:01 EDT [facility] Potassium 3.3(L) 3.5 - 5.0 mEq/L 05/21/2017 4:01 EDT [facility] Chloride 77(L) 96 - 110 mEq/L 05/21/2017 4:01 EDT [facility] CO2 31 22 - 32 mEq/L 05/21/2017 4:01 EDT [facility] Blood specimen (specimen) BLOOD SPECIMEN / Unknown 05/21/2017 3:28 EDT 05/21/2017 3:35 EDT Maria Antonia Zimmerman MD CHEMISTRY & BLOOD GA S ORDERABLES Performing Organization Address [facility] de Phone Number [facility] [address] [place] [address] * EKG 12-LEAD (05/21/2017 1:25 EDT) 05/21/2017 1:25 EDT Narrative [facility] - 05/23/2017 10:35 EDT ? [facility] ? Test Date: ?2017-05-21 Pat Name: ? DAVID MEAR ?Department: ?? [facility] 5 ? Room: ? MW531 Gender: ? M ?Intensive Care Specialist: ?? [id number] : ?1950 ? Requested By: PRADIP MONET Order Number: [id number] ? Reading MD: ?? PIERRE RUBIO MD ? Measurements Intervals ?[place] ? Rate: ? 75 ? P: ?13 VA: ? 160 ?QRS: ?-81 QRSD: ? 185 [...] Note Pierre Rubio MD - 05/23/2017 [facility] Test Date: 2017-05-21 Pat Name: DAVID MERA Department: [place] [address] Room: [facility] Gender: M Intensive Care Specialist: [id number] : 1950 Requested By: PRADIP MONET Order Number: [id number] Martha MD: PIERRE RUBIO MD Measurements Intervals [place] Rate: 75 P: 13 VA: 160 QRS: -81 QRSD: 185 T: 171 QT: 495 QTc: 556 Interpretive Statements SINUS RHYTHM WITH ATRIAL TRACKING and VENTRICULAR PACING Compared to ECG 05/03/2017 04:23:33 No significant changes I reviewed the tracing and have either agreed or edited the findings inthis report. Electronically Signed On 05-23-17 10:35:38 EDT by PIERRE YEBOAH. Maria Antonia Zimmerman MD CARDIAC ECG ORDERABL ES [facility] * INPATIENT ADD-ON (05/21/2017 0:00 EDT) Tests to be added URINE OSM 05/20/2017 23:58 EDT [facility] Number for problems Not Given 05/21/2017 0:02 EDT [facility] Accession number [id number] 05/21/2017 0:02 EDT [facility] TOPOGRAPHY UNKNOWN / Unknown 05/21/2017 05/21/2017 0:02 EDT Maria Antonia Zimmerman MD HEMATOLOGY & PF4 ORD ERABLES Performing Organization Address City/[facility]/ZIP Co de Phone Number [facility] [address] [place] [address] * OSMOLALITY, URINE (05/20/2017 23:45 EDT) Osmolality, Ur 251 150 - 1,150 mos/kg 05/21/2017 0:15 EDT [facility] URINE / Unknown 05/20/2017 2 3:45 EDT 05/20/2017 23:55 EDT Laly Kim MD URINALYSIS ORDERRyan PFEIFFER Performing Organization Address [facility] Co de Phone Number [facility] [address] [place] [address] * SODIUM, URINE RANDOM (05/20/2017 23:45 EDT) Sodium, Ur 18.0 mEq/L 05/21/2017 0:18 EDT [facility] Urine specimen (specimen) URINE / Unknown 05/20/2017 23:45 EDT 05/20/2017 23:55 EDT Laly Kim MD URINALYSIS ORDERRyan PFEIFFER Performing Organization Address [facility] Co de Phone Number [facility] [address] [place] [address] * CREATININE, URINE RANDOM (05/20/2017 23:45 EDT) Creatinine, Urn [place] 43.1 mg/dl 05/21/2017 0:18 EDT [facility] Urine specimen (specimen) URINE / Unknown 05/20/2017 23:45 EDT 05/20/2017 23:55 EDT Laly Kim MD URINALYSIS ORDERRyan PFEIFFER Performing Organization Address [facility]/ZIP Co de Phone Number [facility] [address] [place] [address] * POCT US CARDIAC (05/20/2017 22:45 EDT) Anatomical Region Laterality Modality Other 05/20/2017 22:4 5 EDT 05/20/2017 23:51 EDT Narrative 05/20/2017 23:[address] [facility] - Ultrasound Exam Date: 05/20/2017 Exam Type: POCT US CARDIAC Grain Miller Helper: Laly Kim MD Attending: Laly Kim MD [...] exam was performed and interpreted by the [facility] ED Staff Procedure Note Laly Kim MD - 05/20/[address] [facility] - Ultrasound Exam Date: 05/20/2017 Exam Type: POCT US CARDIAC Grain Miller Helper: Laly Kim MD Attending: Laly Kim MD [...] exam was performed and interpreted by the [facility] ED Staff Laly Kim MD IMG POCT US ORDER IRWIN * (ABNORMAL) BASIC METABOLIC PANEL (BMP) (05/20/2017 22:40 EDT) Sodium 116(LL) 136 - 145 mEq/L 05/20/2017 23:14 [facility] Potassium 3.6 3.5 - 5.0 mEq/L 05/20/2017 23:14 [facility] Chloride 74(L) 96 - 110 mEq/L 05/20/2017 23:14 [facility] CO2 32 22 - 32 mEq/L 05/20/2017 23:14 [facility] BUN 6(L) 10 - 26 mg/dl 05/20/2017 23:14 [facility] Creatinine 0.44(L) 0.66 - 1.25 mg/dl 05/20/2017 23:14 [facility] GFR, Calculated 119 >60 ml/min/1.7 3m2 05/20/2017 23:14 [facility] Comment: eGFR calculated using CKD-EPI equation for non Americans. Multiply eGFR by 1.16 for Americans. Calcium 8.7 8.5 - 10.5 mg/dl 05/20/2017 23:14 [facility] Calculated Calcium 9.2 8.5 - 10.5 mg/dl 05/20/2017 23:14 [facility] Glucose, Serum 108(H) 70 - 100 mg/dl 05/20/2017 23:14 [facility] Fasting? Unknown 05/20/2017 23:14 [facility] Blood specimen (specimen) BLOOD SPECIMEN / Unknown 05/20/2017 22:40 EDT 05/20/2017 22:58 EDT Laly Kim MD CHEMISTRY & BLOOD GAS ORDERABLES [facility] [address] [place] [address] documented in this encounter Visit Diagnoses Diagnosis [...] 05/02 documented in this encounter Care Teams Director Translational Relationship Specialty Start Date End Date Katia Stone, PABijalC [address] [place] [id number] PCP - General 05/02/17 documented as of this encounter
--- OUTSIDE RECORDS SUMMARY | 2023-12-22 18:15 | XMS_ITS | Encounter Summary ---
Author Organization [facility] Address [address] [place] [address] Care Team Providers Care Distillation Operator Helper Name Role Phone Katia Stone PA-C Primary Care Provider +1- [phone] Reason for Visit * Reason Onset Date Comments Other 05/29/2017 Encounter Details Date Type Department Care Team (Late st Contact Info) Description 05/29/2017 Telephone [facility] Cardiology - [address] [place], [place] [id number] Daija Mariee, RN Other Social History Tobacco [...] 1018 EDT Spoke with nurse Yessica at [facility] She spoke with pt today and he had 2 episodes of sharp pains that lasted seconds at the pacemaker site Yessica- RN would like a call back with plan She states pt has had a 11# weight gain, denies shortness of breath Daughter in law takes care of meds- [phone] Spoke with pt- he had 2 quick [...] on filedocumented in this encounter Care Teams Distillation Operator Helper Relationship Specialty Start Date End Date Katia Stone, MINGO [address] [place] [address] PCP - General 05/02/17 documented as of this encounter
--- OUTSIDE RECORDS SUMMARY | 2023-12-22 18:15 | XMS_ITS | Encounter Summary ---
Author Organization [facility] Address [address] [place] [address] Care Team Providers Care Registered Veterinary Technician Name Role Phone Katia Stone PA-C Primary Care Provider +1- [phone] Encounter Details Date Type Department Care Team (Late st Contact Info) Description 06/11/2017 Results Only Imaging [facility] Adult Primary Care - [address] [id number] Michael Pratt MD [facility] [place] [address] Social History Tobacco Use Types [...] - there is no report. Procedure Note CABLE TESTER, IMAGING - 06/13/2017 This is an outside study - there is no report. Michael Pratt MD IMG OTHER IMAGING OR DERABLES documented in this encounter Visit Diagnoses Not on filedocumented in this encounter Care Teams Registered Veterinary Technician Relationship Specialty Start Date End Date Katia Stone, PABijalC [address] [place] [address] PCP - General 05/02/17 documented as of this encounter
--- OUTSIDE RECORDS SUMMARY | 2023-12-22 18:15 | XMS_ITS | Encounter Summary ---
Author Organization [facility] Address [address] [place] [address] Care Team Providers Care In Store Marketing Associate Name Role Phone Katia Stone PA-C Primary Care Provider +1- [phone] Reason for Visit * Reason Onset Date Comments Update 06/12/2017 on admission to [facility] Encounter Details Date Type Department Care Team (Late st Contact Info) Description 06/12/2017 Telephone [facility] Cardiology - [address] [place] [address] Tony Rosenberg MD [address] [place] [address] [address] [place] [address] Update (on admission to [facility]) Social History Tobacco Use Types Packs/Day [...] EDT The pt has been admitted to [facility] * Telephone Encounter - Belinda [...] Reason for Call: Update (on admission to [facility]) Summary/Symptoms: Yessica would like to speak to the nurse regarding this patient being admitted to [facility] today at Dr. Guevara request Andra Gonzáles 06/12/2017 9:24 documented in this encounter Plan of Treatment Not on file documented as of this encounter Visit Diagnoses Not on filedocumented in this encounter Care Teams In Store Marketing Associate Relationship Specialty Start Date End Date Katia Stone, MINGO [address] [place] [id number] PCP - General 05/02/17 documented as of this encounter
--- OUTSIDE RECORDS SUMMARY | 2023-12-22 18:15 | XMS_ITS | Encounter Summary ---
Author Organization [facility] Address [address] [place] [address] Care Team Providers Care Cleaning Validation Consultant Name Role Phone Katia Stone PA-C Primary Care Provider +1- [phone] Encounter Details Date Type Department Care Team (Late st Contact Info) Description 05/20/2017 Results Only Imaging [facility] [phone] Unknown, Provider, Social History Tobacco Use Types [...] on filedocumented in this encounter Care Teams Cleaning Validation Consultant Relationship Specialty Start Date End Date Katia Stone PA-C [address] [place] [phone] PCP - General 05/02/17 documented as of this encounter
--- OUTSIDE RECORDS SUMMARY | 2023-12-22 18:15 | XMS_ITS | Encounter Summary ---
Author Organization [facility] Address [address] [place] [address] Care Team Providers Care Invas Tech Name Role Phone Katia Stone PA-C Primary Care Provider +1- [phone] Encounter Details Date Type Department Care Team (Late st Contact Info) Description 05/20/2017 Results Only Imaging [facility] [phone] Unknown, Provider, Social History Tobacco Use Types [...] on filedocumented in this encounter Care Teams Invas Tech Relationship Specialty Start Date End Date Katia Stone PA-C [address] [place] [phone] PCP - General 05/02/17 documented as of this encounter
--- OUTSIDE RECORDS SUMMARY | 2023-12-22 18:16 | XMS_ITS | Encounter Summary ---
Author Organization [facility] Address [facility] [place] [address] Care Team Providers Care Enrollment Consultant Name Role Phone Katia Stone Primary Care Provider [phone] Encounter Details Date Type Department Care Team (Late st Contact Info) Description 12/15/2023 10:20 PM EDT Ancillary Procedure Radiology Library at [facility] [place] [address] Jack Gutierrez MD [address] [place] [address] [address] [place], [place] [id number] Social History Tobacco Use Types Packs/Day Years Used Date Smoking Tobacco: Never Smokeless Tobacco: Never Alcohol Use Standard Drinks/Week Comments Yes 14 (1 standard drink = 0.6 oz pu re alcohol) [facility] Inpatient Questions Answer Date Recorded Does Anyone [...] AM EST Hospital Encounter Non-Invasive Cardiology [place] [facility] [address] Arrived documented as of this encounter Procedures Procedure Name Priority Date/Time Associated Diagnosis Comments FILM LIBRARY STORAGE ONLY CT HEAD AND SPINE Routine 12/15/2023 10:14 PM EDT documented in this encounter Results * Film Library- Storage Only CT Head And Spine (12/15/2023 10:14 PM EDT) Narrative FACUNDO ISBELL - 12/15/2023 10:14 PM EDT This exam is auto-finalizing. It's purpose is for storage only. Jack Gutierrez MD IMG FILM LIBRARY O RDERABLES Performing Organization Address City/State/[facility] Co de Phone Number [place], [place] documented in this encounter Visit Diagnoses Not on filedocumented in this encounter Care Teams Enrollment Consultant Relationship Specialty Start Date End Date Katia Stone PA [address] [facility] [place] [phone] PCP - General General Internal Medicine 11/10/18 documented as of this encounter
--- OUTSIDE RECORDS SUMMARY | 2023-12-22 18:16 | XMS_ITS | Encounter Summary ---
Author Organization [facility] [place] [address] Care Team Providers Care Paper Cleaner Name Role Phone Katia Stone Primary Care Provider Reason for Visit * Reason Onset Date Comments Other 09/24/2022 Cardiac Device I mplant Teaching/Education Encounter Details Date Type Department Care Team (Late st Contact Info) Description 09/24/2022 Notes Only Cardiology at [address] [address] Magi Lowery Other (Cardiac Device Implant Teaching/Education) Social History Tobacco Use Types Packs/Day Years Used Date Smoking Tobacco: Never Smokeless Tobacco: Never Alcohol Use Standard Drinks/Week Comments Yes 14 (1 standard drink = 0.6 oz pu re alcohol) [facility] Inpatient Questions Answer Date Recorded Does [...] to call the Cardiac Device Clinic at [phone] with any questions. Plan: Post op check: [...] AM EST Hospital Encounter Non-Invasive [place] [address] Arrived documented as of this encounter Visit Diagnoses Not on filedocumented in this encounter Care Teams Paper Cleaner Relationship Specialty Start Date End Date Katia Stone PA [address] [facility] [place] [phone] PCP - General General Internal Medicine 11/10/18 documented as of this encounter
--- OUTSIDE RECORDS SUMMARY | 2023-12-22 18:16 | XMS_ITS | Encounter Summary ---
Author Organization [facility] [place] [address] Care Team Providers Care Head School Custodian Name Role Phone Katia Stone Primary Care Provider Encounter Details Date Type Department Care Team (Latest Contact Info) Description 05/10/2023 10:00 AM EST - 05/10/2023 11:59 PM [facility] [place] [address] Discharge Disposition: Home Social History Tobacco Use [...] AM EST Hospital Encounter Non-[place] [address] Arrived documented as of this encounter Procedures [...] filedocumented in this encounter Care Teams Head School Custodian Relationship Specialty Start Date End Date Katia Stone PA [address] [facility] [place] [address] PCP - General General Internal Medicine 11/10/18 documented as of this encounter
--- OUTSIDE RECORDS SUMMARY | 2023-12-22 18:16 | XMS_ITS | Encounter Summary ---
[place] [address] Care Team Providers Care President [employer] Name Role Phone Katia Stone Primary Care Provider [phone] Encounter Details Date Type Department Care Team (Late st Contact Info) Description 12/16/2023 1:30 PM EDT Telehealth [place] [address] Telehealth, Neurology None Social History Tobacco Use Types Packs/Day Years [...] AM EST Hospital Encounter Non-[place] [address] Arrived documented as of this encounter Visit Diagnoses Not on filedocumented in this encounter Care Teams President [employer] Relationship Specialty Start Date End Date Katia Stone PA [address] [place] [address] PCP - General General Internal Medicine 11/10/18 documented as of this encounter
--- OUTSIDE RECORDS SUMMARY | 2023-12-22 18:16 | XMS_ITS | Encounter Summary ---
Author Organization [facility] Address [facility] [place] [address] Care Team Providers Care Financial Service Rep Name Role Phone Katia Stone Primary Care Provider [phone] Encounter Details Date Type Department Care Team (Late st Contact Info) Description 04/04/2022 Notes Only Cardiology at [address] [id number] Humberto Ashraf PA [facility] [place] [address] Social History Tobacco Use Types Packs/Day Years [...] pacing threshold; afib/flutter Transmission Date: 03/28/2022 Device Mess Attendant Crew and Type: [employer] L111 Battery Status: estimated longevity 6 months Atrial lead status: normal sensing and impedance; elevated pacing threshold(now 4.0V @ 0.4ms); known partial fx Right ventricular lead status: good Left ventricular lead status: n/a Pacin % Atrial pacing 100 % Ventricular pacing Events/Arrhythmias noted since last reset: New acutely elevated RA pacing threshold Impression: 71yo man with dual lead [employer] 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 He is followed at [facility] and has reported known atrial lead dysfunction as assessed by Dr. Story. Now as he approaches [facility], he should be evaluated for lead replacement, +/-extraction of the fractured lead. I will request follow up to be scheduled. GIRISH Marin, MPAS, DFAAPA documented in this encounter Plan of Treatment Upcoming Encounters Date Type Department Care Team (Late st Contact Info) Description 02/04/2024 10:00 AM EST Hospital Encounter Non[place] [address] Arrived documented as of this encounter Visit Diagnoses Not on filedocumented in this encounter Care Teams Financial Service Rep Relationship Specialty Start Date End Date Katia Stone PA [address] [facility] [place] [phone] PCP - General General Internal Medicine 11/10/18 documented as of this encounter
--- OUTSIDE RECORDS SUMMARY | 2023-12-22 18:16 | XMS_ITS | Encounter Summary ---
Author Organization [facility] [place] [address] Care Team Providers Care Carpenter Mine Name Role Phone Katia Stone Primary Care Provider Encounter Details Date Type Department Care Team (Latest Contact Info) Description 08/08/2023 10:00 AM EDT - 08/08/2023 11:59 PM EDT Hospital Encounter [place] [address] Discharge Disposition: Home Social History Tobacco Use [...] st Contact Info) Description 02/04/2024 10:00 AM [facility] Hospital Encounter Non-[place] [address] Arrived documented as of this encounter Procedures [...] filedocumented in this encounter Care Teams Carpenter Mine Relationship Specialty Start Date End Date Katia Stone PA [address] [place] [phone] PCP - General General Internal Medicine 11/10/18 documented as of this encounter
--- OUTSIDE RECORDS SUMMARY | 2023-12-22 18:16 | XMS_ITS | Encounter Summary ---
[facility] [place] [address] Care Team Providers Care Doughnut [employer] Machine Name Role Phone Katia Stone Primary Care Provider Encounter Details Date Type Department Care Team (Late st Contact Info) Description 07/23/2021 Notes [place] [phone] Mykel Stern, [facility] [place] [address] Social History Tobacco Use Types Packs/Day Years [...] were requested by Dr. Virginia Price of [facility]. Unclear follow up in our system; [...] Chest Tube/Pleural Drain 07/10/2021 Vick Boss MD [facility] RAD CT SCAN ??? CT PERITONEAL DRAINAGE 07/10/2021 CT Guided Drain Peritoneal 07/10/2021 Vikc Boss MD [facility] RAD CT SCAN Medications: Allergies: [...] [facility] [place] [address] Arrived documented as of this encounter Visit Diagnoses Not on filedocumented in this encounter Care Teams D[employer]nut [employer] Relationship Specialty Start Date End Date Katia Stone PA [facility] [address] [place] [address] PCP - General General Internal Medicine 11/10/18 documented as of this encounter
--- OUTSIDE RECORDS SUMMARY | 2023-12-22 18:16 | XMS_ITS | Encounter Summary ---
Author Organization [facility] Address [facility] [place] [address] Care Team Providers Care Hoop Riveter Name Role Phone Katia Stone Primary Care Provider [phone] Reason for Visit * Auth/Cert (Routine) Specialty [...] OR PM) (WRVU 4.92) Dylan Story MD [facility] [place] [address] [facility] Referral ID Status Reason Start Date Expiration Date Visits Re quested Visits Authorized [id number] 1 1 Encounter Details Date Type Department Care Team (Latest Contact Info) Description 09/23/2022 11:49 AM EDT - 09/24/2022 1:21 PM EDT Hospital Encounter Heart and Vascular Unit Level 4 [place] [id number] Dylan Story MD [facility] [place] [address] Pacemaker at end of battery life; Pacemaker [...] Tim Mera Patient Age: 71 y.o. Language: Latvian Race: White Ethnicity: Not nor Admit date: 09/23/2022 Discharge date and time: 09/24/2022 1315 Attending Physician: Dylan Story MD Discharge Physician: Dylan Story MD Follow-up Recommendations for Providers: NEW - replaced [employer] dual lead pacemaker with new atrial and ventricular pacing leads. Old leads capped and abandoned. Stable for discharge to home Needs non-emergent ambulance for transport back to [facility] in [place], [place]. Outpatient follow up scheduled at [facility] for 10 post implant check. Inpatient Provider Contact Information: Cardiac Electrophysiology [phone], option #3 Discharge Diagnoses (Hospital Problems) and Secondary Diagnoses (Chronic Problems): Active Hospital Problems Diagnosis Complete heart block Pacemaker - dual lead [employer] pacemaker Resolved Hospital Problems No resolved problems to display. Operations/Major Procedures: Operations: Procedure(s): ELECTROPHYSIOLOGY PROCEDURE REMOVAL PPM GENERATOR W REPL PPM GEN; DUAL LEAD (WRVU 5.52) REPOSITIONING PREVIOUSLY PLACED ELECTRODE (ICD OR PM) (WRVU 4.92) 09/23/2022 History of Presentation: 71 y.o. male with a history of complete heart block s/p dual chamber permanent pacemaker April 2017 at [facility] course complicated by both pericardial effusion [...] RV pacing leads were implanted. A new [employer] pacemaker pulse generator was also implanted. [...] 106 (L): Data is abnormally low Treatments: Process Design Chemical Engineer Model # Serial # Generator (New) [employer] Hyper9 [id number] [id number] Atrial Lead (New) [employer] Sci 7841 [id number] RV Lead [employer] Sci 7742 [id number] Old RA lead capped and abandoned Old RV lead found to have insulation deterioration and this lead was also capped and abandoned New RA and RV leads placed [employer] pulse generator implanted DDD @ 60/120 Discharge [...] by mouth 3 times daily. Generic drug: haxpbp-boisegya-mygsvou DR 1 capsule Refills: 0 fentaNYL 12 [...] incision. Make sure to use a cloth shrinking machine operator helper (such as a towel) in between the [...] F. The office scheduling phone number is [phone]. ARM MOVEMENT RESTRICTIONS POST-IMPLANT - Do not [...] please call the Cardiac ElectrophysiologyTriage Nurse at [phone], option 3. General Instructions Future Appointments and Orders Future Appointments and Orders Future Appointments Provider Department Dept Phone 10/04/2022 11:00 AM Maite Lozano RN Cardiology at [facility] Arrive at: Scheduling Analyst Area [phone] 12/27/2022 11:00 AM Maite Lozano RN Cardiology at [facility] Arrive at: Scheduling Analyst Area [phone] Discharge References/Attachments None Dylan Story MD [facility] [...] incision. Make sure to use a cloth shrinking machine operator helper (such as a towel) in between the [...] F. The office scheduling phone number is [phone]. ARM MOVEMENT RESTRICTIONS POST-IMPLANT - Do not [...] please call the Cardiac ElectrophysiologyTriage Nurse at [phone], option 3. documented in this encounter Medications [...] General Information Tim Mera 1950 Medicare Number: [id number] Transport Date: 09/24/22 (PCS is valid for round trips on this date and for all repetitive trips in the 60-day range as noted below.) Origin: [place] [address] Destination: [facility] [address] [place] [address] Is the patient's stay covered [...] is contraindicated by the patient's condition: medical payment poster required. Patient unable to tolerate seated position [...] van (i.e. seated during transport, without medical payment poster or monitoring?): No 4) In addition to complete questions 1-3 above, please select any of the following conditions that apply: *Note: supporting documentation for any boxes checked must be maintained in the patient's medical records Moderate/severe pain on movement washateria attendant required Section III - Signature of [...] 09/24/2022 10:54 AM EDT Office of Care Management/Parts Counter Clerk Patient Name: Tim Mera : 1950 Patient is returning to a SNF bed at [facility]. [facility] arranged for a 1300hrs transport. Ambulance will need: Medicare ambulance form completed and signed (MD or Bread Pan Greaser RN/AUTOMOTIVE HARDWARE ENGINEER) Copy of patient demographics [place] Out of Hospital DNR/DNI order, if active No MD to MD report necessary. Please call Nursing Report to , ask for tile professional. Info to accompany patient: Copies of Medication Administration Records and IV sheets for past 10 days. Plan: Parts Counter Clerk will be available to the patient and Bread Pan Greaser-RN and/or Social Workerfor further assistance. Patient will be discharged to: [facility] [address] [place] [id number] Holly Urbina * Humberto Ashraf PA - 09/24/2022 10:31 AM EDT Inpatient Cardiac Electrophysiology Discharge Day Note Patient Name: Tim Mera Service: EP Responsible Attending: Dylan Story MD Reason for continued hospitalization: POD#1 pacemaker pulse generator and lead replacement Active Problems: Active Hospital Problems Diagnosis Complete heart block Pacemaker - dual lead [employer] pacemaker Resolved Hospital Problems No resolved problems to display. Interval History: 71 y.o. male with a history of complete heart block s/p dual chamber permanent pacemaker April 2017 at [facility] course complicated by both pericardial effusion [...] RV pacing leads were implanted. A new [employer] pacemaker pulse generator was also implanted. [...] Oral Daily loratadine 10 mg Oral Daily kizqmw-snnephru-jkdfmaw DR 1 capsule Oral TID magnesium oxide [...] 0.00 - 0.04 x10(3)/mcL Pertinent Radiographic/Diagnostic Results: Process Design Chemical Engineer Model # Serial # Generator (New) [employer] L311 [id number] Atrial Lead (New) [employer] 7841 [id number] RV Lead [employer] 7742 779143 Old RA lead capped and abandoned Old RV lead found to have insulation deterioration and this lead was also capped and abandoned New RA and RV leads placed [employer] pulse generator implanted DDD @ 60/120 P wave: 2.2mV R wave: none above 30 Atrial impedance: 581 ohms RV impedance:777 ohms RA threshold: 0.7V @0.4ms RV threshold: 0.4V @ 0.4ms AP 38%; DEPUTY TREASURER 100% No events Estimated battery longevity >8 years CXR: 09/24/2022 Left sided dual lead pacemaker 4 leads; two abandoned No pneumothorax +small bilateral pleural effusions Assessment: Tim Mera is a 71 y.o. male withhx of complete heart block, s/p dual lead [id number] at [facility], now with cell depletion, fractured atrial lead and unexpected insulation deteriorationof RV lead resulting placement of new RA and RV pacing leads along with a new pulse generator. Device function is excellent today. Plan: NEW - replaced [employer] dual lead pacemaker with new atrial and ventricular pacing leads. Old leads capped and abandoned. Stable for discharge to home Needs non-emergent ambulance for transport back to [facility] in [place], [place]. Outpatient follow up scheduled at [facility] for 10 post implant check. Provider: GIRISH Marin EP Procedural attending physician: Adiel Story MD EP Consult positional pager #[phone](EPMD) EP Device interrogation positional pager # [phone] * Rosie Ashraf RN - 09/23/2022 5:37 [...] dual chamber permanent pacemaker April 2017 at [facility] course complicated by both pericardial effusion [...] Chest Tube/Pleural Drain 07/10/2021 Vick Boss MD [facility] RAD CT SCAN CT PERITONEAL DRAINAGE 07/10/2021 CT Guided Drain Peritoneal 07/10/2021 Vick Boss MD [facility] RAD CT SCAN LAB VALUES: Laboratory Data: Lab Results Component Value Date WBC 9.4 09/23/2022 HGB 13.1 (L) 09/23/2022 HCT 39.5 (L) 09/23/2022 MCV 104.8 (H) 09/23/2022 ASSESSMENT AND PLAN: Tim Mera is a 71 y.o. male with a history of complete heart block s/p dual chamber permanent pacemaker April 2017 at [facility] course complicated by both pericardial effusion [...] Vini Lucero MD Cardiac Electrophysiology Fellow [facility] Pager [phone] 09/23/2022 I met with the patient today [...] in agreement. Dr. Dylan Story, electrophysiology attending ([id number]) documented in this encounter Miscellaneous Notes * Care Management Discharge - Tim Casillas RN - 09/24/2022 11:30 AM EDT CARE MANAGEMENT FINAL DISCHARGE NOTE Chart reviewed, care reviewed with primary team and at interdisciplinary rounds. Patient is medically ready for discharge to [facility]. Needs for Transition of Care: Plan for discharge is: Penitentiary Facility / Swing Outpatient Agency/Support Group Needs: None Agency Referrals & Follow-up Care: Contact information for follow-up [facility] [address] [place] [id number] Transportation: ambulance Ambulance Finance Conversation Completed: 09/24/2022 Spoke to: Radha Chand OTR REFRIGERATED CDL TRUCK DRIVER at accepting facility Verbalized Understanding: Yes Functional [...] Implemented as Appropriate) 09/24/2022412 by Ann Marie aMki RN Outcome: Ongoing (Interventions Implemented as Appropriate) [...] Operative Note Patient Name: Tim Mera : [id number] MR#: [id number] Case Date: 09/23/2022 Surgeon: Surgeon(s) and Role: [...] AM EST Hospital Encounter [place] [address] Arrived Scheduled Orders Name Type [...] who have questions please contact the health home care assistant that requested your imaging first. ? Electronically signed by: Denilson Puentes MD, [facility] ([phone]), at 09/24/2022 8:47 AM Narrative 09/24/2022 8:47 [...] patients who have questions please contactthe health home care assistant that requested your imaging first. Electronically signed by: Denilson Puentes MD, [facility]([phone]), at 09/24/2022 8:47 AM Dylan Story MD IMG DX ORDERABLES * EKG 12 Lead (09/23/2022 5:18 PM EDT) Ventricular rate 74 BPM MUSE SYSTEM Atrial Rate 74 BPM MUSE SYSTEM P-R Interval 168 ms MUSE SYSTEM QRS Duration 164 ms MUSE SYSTEM Q-T Interval 458 ms MUSE SYSTEM QTC Calculated (Bezet) 508 ms MUSE SYSTEM Calculated P [place] 13 degrees MUSE SYSTEM Calculated R [place] -72 degrees MUSE SYSTEM Calculated T [place] 91 degrees MUSE SYSTEM INTERPRETATION Atrial-sense d ventricular- paced rhythm Abnormal ECG No previous ECGs available Confirmed by Bro Dasilva ([id number]) on 09/24/2022 9:15:33 AM MUSE SYSTEM 09/23/2022 [...] PATIENT NAME: Tim Mera PATIENT : 1950 CONDITIONING YARD SUPERVISOR: Dylan Story MD FELLOW: Vini Lucero MD REFERRING PROVIDER: GIRISH Rai PROCEDURE DATE: 09/23/2022 PATIENT HISTORY: Mr. Mera is a 71 year old man with a history of complete heart block status post dual chamber [employer] pacemaker in 2018 with course complicated [...] the entire procedure. LEAD AND GENERATOR DATA: Process Design Chemical Engineer Model # Serial # Generator (New) [employer] L311 110496 Atrial Lead (New) [employer] Hyper9 7841 [id number] RV Lead (new) [employer] Sci 7842 [id number] REMOVED GENERATOR AND CAPPED ATRIAL LEAD: Process Design Chemical Engineer Model # Serial # Generator (Explanted) [employer] L111 070549 Atrial Lead (Capped) [employer] 3830 [id number] ?? Ventricular lead (capped) [employer] 7742 765922 PACE/SENSE DATA: Sensed wave (mV) Threshold (V) [...] with new A and V leads (cpt 61088) Dylan Story MD S Cardiac Electrophysiology 09/24/2022 1:57 PM Procedure Note Dylan Story MD - 09/27/2022 Images from the original note were not included. PACEMAKER GENERATOR CHANGE AND REVISION OF RA AND RV LEADS PATIENT NAME: Tim Mera PATIENT : 1950 CONDITIONING YARD SUPERVISOR: Dylan Story MD FELLOW: Vini Lucero MD REFERRING PROVIDER: GIRISH Rai PROCEDURE DATE: 09/23/2022 PATIENT HISTORY: Mr. Mera is a 71 year old man with a history of complete heart blockstatus post dual chamber [employer] pacemaker in 2018 with coursecomplicated by [...] the entire procedure. LEAD AND GENERATOR DATA: Process Design Chemical Engineer Model # Serial # Generator (New) [employer] Hyper9 L311 195405 Atrial Lead (New) [employer] Sci 7841 9047145 RV Lead (new) [employer] 7842 8799937 REMOVED GENERATOR AND CAPPED ATRIAL LEAD: Process Design Chemical Engineer Model # Serial # Generator (Explanted) [employer] Hyper9 L111 055194 Atrial Lead (Capped) Med[employer]onic 3830 [id number] Ventricular lead (capped) [employer] 7742 297766 PACE/SENSE DATA: Sensed wave (mV) Threshold (V) [...] pacemaker with new A and V leads(cpt 43164) Dylan Story MD S Cardiac Electrophysiology 09/24/2022 1:57 PM Dylan Story MD EP PROCEDURE ORDERAB LES * (ABNORMAL) Differential, Automated (09/23/2022 12:05 PM EDT) Neutrophil % 62.1 % [facility] Neutrophil Absolute 5.82 1.70 - 6.10 x10(3)/mc L [facility] Lymph % 22.3 % [facility] Lymphocytes Abs 2.1 0.9 - 3.2 x10(3)/mc L [facility] Monocyte % 11.8 % [facility] Monocyte Abs 1.1(H) 0.3 - 0.9 x10(3)/mc L [facility] Eos % 2.1 % [facility] Eosinophils Abs 0.2 0.0 - 0.4 x10(3)/mc L [facility] Basophil % 1.1 % [facility] Baso Absolute 0.1 0.0 - 0.1 x10(3)/mc L [facility] Immature Gran % 0.60 % [facility] Comment: Immature granulocytes(IG's)percentage and absolute count will include metamyelocytes, myelocytes, and promyelocytes. Blood smears from CBCs yielding IG's will be scanned manually for concordance. If this scan disagrees with the automated IG or if promyelocytes are noted, a manual differential will be performed. Immature Gran Absolute 0.06(H) 0.00 - 0.04 x10(3)/mc L [facility] Blood 09/23/2022 12:0 5 PM EDT 09/23/2022 12:25 PM EDT Narrative Resulting Agency Comment Spec In Lab Dylan Story MD HEMATOLOGY ORDERABLE S Performing Organization Address City/[facility]/ZIP Co de Phone Number [facility] [place] [address] * (ABNORMAL) Hemogram (09/23/2022 12:05 PM EDT) White Blood Cell 9.4 4.0 - 9.5 x10(3)/[facility] Red Blood Cell 3.77(L) 4.58 - 5.54 x10(6)/[facility] Hemoglobin 13.1(L) 13.7 - 16.5 g/dL [facility] Hematocrit 39.5(L) 40.5 - 48.5 % [facility] Mean Cell Volume 104.8(H) 82.9 - 93.1 fL [facility] Mean Cell Hemoglobin 34.7(H) 27.5 - 32.1 pg [facility] Mean Cell Hemoglobin Concentration 33.2 32.0 - 35.7 g/dL [facility] Platelet 276 145 - 357 x10(3)/ L [facility] RDW Standard Deviation 47.7(H) 36.0 - 45.0 fL [facility] RDW coefficient of variation 12.3 11.4 - 13.8 % [facility] Mean Platelet Volume 10.4 7.6 - 12.9 fL [facility] NRBC% auto 0.0 % [facility] NRBC Absolute 0.000 0.000 - 0.000 x10(3)/mc L [facility] Blood 09/23/2022 12:0 5 PM EDT 09/23/2022 12:25 PM EDT Narrative Resulting Agency Comment Spec In Lab Dylan Story MD HEMATOLOGY ORDERABLE S Performing Organization Address City/[facility]/ZIP Co de Phone Number [facility] [place] [address] * (ABNORMAL) Basic Metabolic Panel (non-fasting) (09/23/2022 12:05 PM EDT) Glucose 106 65 - 199 mg/dL [facility] Comment:Diabetes: >=200 mg/d L plus symptoms Blood Urea Nitrogen 8(L) 10 - 20 mg/dL [facility] Creatinine 0.58(L) 0.80 - 1.50 mg/dL [facility] Sodium 130(L) 135 - 145 mmol/L [facility] Potassium 5.0 3.5 - 5.0 mmol/L [facility] Comment: Please note: ??Patients with WBC >100,000 may have falsely elevated Potassium levels. ??For accurate Potassium quantification in these patients send serum separator tube (gold top) for subsequent determinations. ??Contact the Clinical Chemistry Laboratory if there are any questions. Chloride 95(L) 98 - 107 mmol/L [facility] Carbon Dioxide 25 22 - 31 mmol/L [facility] Anion Gap 10 5 - 15 mmol/L [facility] Calcium 9.3 8.5 - 10.5 mg/dL [facility] Est Glomerular Filtration Rate 104 >=60 mL/min/1. 73 m?? [facility] Comment: This patient's estimated GFR [...] In Lab Dylan Story MD CHEMISTRY ORDERABLES [facility] [address] documented in this encounter Visit Diagnoses Diagnosis Complete heart block- Primary Atrioventricular block, complete Pacemaker at end of battery life Fitting and adjustment of cardiac pacemaker Pacemaker battery depletion Fitting and adjustment of cardiac pacemaker AV block Atrioventricular block, unspecified Complete heart block Atrioventricular block, complete Pacemaker - dual lead [employer] pacemaker Cardiac pacemaker in situ Pacemaker [...] Given 09/23/2022 2:11 PM EDT 400 mg ssbesr-djrukveg-risaetr DR (Creon 24) 24,000-76,000 -120,000 unit per [...] 1411 (Given - Provider: Vini Lucero MD) emvkwy-zlwiggoa-jlwzirg DR (Creon 24) 24,000-76,000 -120,000 unit per [...] 1914 (Not Given - Provider: Ann Marie aMki RN - Reason: Order parameters not met [...] Routine documented in this encounter Care Teams Hoop Riveter Relationship Specialty Start Date End Date Katia Stone PA [address] [place] [id number] PCP - General General Internal Medicine 11/10/18 documented as of this encounter
--- OUTSIDE RECORDS SUMMARY | 2023-12-22 18:16 | XMS_ITS | Clinical Summary ---
Author Organization [facility] Address [facility] [place] [address] Care Team Providers Care Candlemaking Laborer Name Role Phone Katia Stone Primary Care [...] Date Diagnosed Date Pacemaker - dual lead [employer] pacemake r 09/24/2022 Overview (09/24/2022): Search Engine Optimizer Model # Serial # Generator (New) [employer] L311 [id number] Atrial Lead (New) [employer] 7841 [id number] RV Lead [employer] 7742 [id number] 09/23/2022 - RA lead fx and RV lead with insulation breach - both capped and abandoned with new atrial and ventricular leads Placed as well as PG replacement for DIONICIO Complete heart block 09/23/2022 Encounters Date Type Department Care Team Description 12/16/2023 1:30 PM EDT Telehealth [place] [address] Telehealth, Neurology 12/15/2023 10:20 PM EDT Ancillary Procedure Radiology Library at [facility] [place] [id number] Jack Gutierrez MD 12/15/2023 10:15 PM EDT Ancillary Procedure Radiology Library at [facility] [place] [id number] Jack Gutierrez MD 11/06/2023 10:00 AM EDT - 11/06/2023 11:59 PM EDT Hospital Encounter [place] [address] Discharge Disposition: Home from Last 3 Months Social History Tobacco Use Types Packs/Day Years Used Date Smoking Tobacco: Never Smokeless Tobacco: Never Tobacco Cessation:Counseling Given: Not Answered Alcohol Use Standard Drinks/Week Comments Yes 14 (1 standard drink = 0.6 oz pu re alcohol) [facility] Inpatient Questions Answer Date Recorded Does Anyone [...] AM EST Hospital Encounter [place] [address] Arrived Health Maintenance Due Date Last Done [...] Advance Directive 2005 Covid-19 Vaccine (1 - 2022- season) 2023 Influenza (Flu) vaccine (1 o f 1 - Influenza standard series) 11/02/2023 Medical Devices Implanted Type Area Search Engine Optimizer Device Identifier Shelf Expiration Date Model / Serial / Lot Bsx: 7841: [id number] Implanted: by Dylan Story MD (Quantity not on file) Lead Heart [employer] Scientific 7841 / [id number] / Bsx: 7842: [id number] Implanted: by Dylan Story MD (Quantity not on file) Lead Heart [employer] 7842 / [id number] / Bsx: L311: [id number]/24/2 023 Implanted: by Dylan Story MD (Quantity not on file) Pacemaker Chest Wall [employer] L311 / [id number] / Procedures Procedure Name Priority Date/Time Associated Diagnosis Comments FILM LIBRARY STORAGE ONLY CT HEAD AND SPINE Routine 12/15/2023 10:14 PM EDT FILM LIBRARY STORAGE ONLY CT HEAD Routine 12/15/2023 10:11 PM EDT from Last 3 Months Results * Film Library- Storage Only CT Head And Spine (12/15/2023 10:14 PM EDT) Narrative [facility] - 12/15/2023 10:14 PM EDT This exam is auto-finalizing. It's purpose is for storage only. Jack Gutierrez MD [facility] FILM LIBRARY O RDERABLES Performing Organization Address [facility]/ZIP Co de Phone Number [place], [place] * Film Library- Storage Only CT Head (12/15/2023 10:11 PM EDT) Narrative [facility] - 12/15/2023 10:11 PM EDT This exam is auto-finalizing. It's purpose is for storage only. Jack Gutierrez MD IMG FILM LIBRARY O RDERABLES [place], [place] from Last 3 Months Advance Directives * [...] full resusitation during periprocedureal period Care Teams Candlemaking Laborer Relationship Specialty Start Date End Date Katia Stone PA [address] [place] [phone] PCP - General General Internal Medicine 11/10/18
--- OUTSIDE RECORDS SUMMARY | 2023-12-22 18:16 | XMS_ITS | Encounter Summary ---
Author Organization [facility] Address [facility] [place] [address] Care Team Providers Care Check Cashier Name Role Phone Katia Stone Primary Care Provider [phone] Encounter Details Date Type Department Care Team (Late st Contact Info) Description 12/15/2023 10:15 PM EDT Ancillary Procedure Radiology Library at [facility] [place] [address] Jack Gutierrez MD [address] [place] [address] [place], [place] [id number] Social History Tobacco Use Types Packs/Day Years Used Date Smoking Tobacco: Never Smokeless Tobacco: Never Alcohol Use Standard Drinks/Week Comments Yes 14 (1 standard drink = 0.6 oz pu re alcohol) [facility] Inpatient Questions Answer Date Recorded Does Anyone [...] AM EST Hospital Encounter Non-Invasive Cardiology [place] [facility] [address] Arrived documented as of this encounter Procedures Procedure Name Priority Date/Time Associated Diagnosis Comments FILM LIBRARY STORAGE ONLY CT HEAD Routine 12/15/2023 10:11 PM EDT documented in this encounter Results * Film Library- Storage Only CT Head (12/15/2023 10:11 PM EDT) Narrative FACUNDO ISBELL - 12/15/2023 10:11 PM EDT This exam is auto-finalizing. It's purpose is for storage only. Jack Gutierrez MD IMG FILM LIBRARY O RDERABLES [place], [place] documented in this encounter Visit Diagnoses Not on filedocumented in this encounter Care Teams Check Cashier Relationship Specialty Start Date End Date Katia Stone PA [address] [place] [phone] PCP - General General Internal Medicine 11/10/18 documented as of this encounter
--- OUTSIDE RECORDS SUMMARY | 2023-12-22 18:16 | XMS_ITS | Encounter Summary ---
Author Organization [facility] Address [facility] [place] [address] Care Team Providers Care Timber Sizer Name Role Phone Katia Stone Primary Care Provider Encounter Details Date Type Department Care Team (Latest Contact Info) Description 02/09/2023 10:00 AM EST - 02/09/2023 11:59 PM [facility] Hospital Encounter Non-[place] [address] Discharge Disposition: Home Social History Tobacco Use [...] AM EST Hospital Encounter Non-Invasive [place] [address] Arrived documented as of this encounter Procedures [...] filedocumented in this encounter Care Teams Timber Sizer Relationship Specialty Start Date End Date aKtia Stone PA [address] [place] [phone] PCP - General General Internal Medicine 11/10/18 documented as of this encounter
--- OUTSIDE RECORDS SUMMARY | 2023-12-22 18:16 | XMS_ITS | Encounter Summary ---
Author Organization [facility] Address [facility] [place] [address] Care Team Providers Care Bitumastic Applier Name Role Phone Katia Stone Primary Care Provider [phone] Encounter Details Date Type Department Care Team (Late st Contact Info) Description 09/11/2022 Orders Only Cardiology at [address] [address] Dylan Story MD [facility] [place] [address] Pacemaker battery depletion; AV block Social History [...] st Contact Info) Description 02/04/2024 10:00 AM [facility] Hospital Encounter Non[place] [address] Arrived documented as of this encounter Results * (ABNORMAL) Basic Metabolic Panel (non-fasting) (09/23/2022 12:05 PM EDT) [facility] Glucose 106 65 - 199 mg/dL [facility] Comment:Diabetes: >=200 mg/d L plus symptoms Blood Urea Nitrogen 8(L) 10 - 20 mg/dL [facility] Creatinine 0.58(L) 0.80 - 1.50 mg/dL [facility] Sodium 130(L) 135 - 145 mmol/L [facility] Potassium 5.0 3.5 - 5.0 mmol/L [facility] Comment: Please note: ??Patients with WBC >100,000 may have falsely elevated Potassium levels. ??For accurate Potassium quantification in these patients send serum separator tube (gold top) for subsequent determinations. ??Contact the Clinical Chemistry Laboratory if there are any questions. Chloride 95(L) 98 - 107 mmol/L [facility] Carbon Dioxide 25 22 - 31 mmol/L [facility] Anion Gap 10 5 - 15 mmol/L [facility] Calcium 9.3 8.5 - 10.5 mg/dL [facility] Est Glomerular Filtration Rate 104 >=60 mL/min/1. 73 m?? [facility] Comment: This patient's estimated GFR [...] MD CHEMISTRY ORDERABLES Performing Organization Address City/State/[facility] Co de Phone Number [facility] [place] [address] documented in this encounter Visit Diagnoses Diagnosis Pacemaker battery depletion Fitting and adjustment of cardiac pacemaker AV block Atrioventricular block, unspecified documented in this encounter Care Teams Bitumastic Applier Relationship Specialty Start Date End Date Katia Stone PA [address] [place] [phone] PCP - General General Internal Medicine 11/10/18 documented as of this encounter
--- OUTSIDE RECORDS SUMMARY | 2023-12-22 18:16 | XMS_ITS | Encounter Summary ---
Author Organization [facility] Address [facility] [place] [address] Care Team Providers Care Paint Factory Worker Name Role Phone Katia Stone Primary Care Provider Encounter Details Date Type Department Care Team (Latest Contact Info) Description 11/14/2021 - 11/14/2021 11:59 PM EDT Hospital Encounter Non-[place]vasive [place] [phone] Radah Hammond MD [facility] [place] [address] CHB (complete heart block) Discharge Disposition: Home [...] AM EST Hospital Encounter Non-[place] [phone] Arrived documented as of this encounter Procedures [...] pdf document Date of transmission: 11/14/21 Device head start director: BSC Device type: DC PM Presenting rhythm: apvp AP 56% MARKETING COMMUNICATIONS COORDINATOR 100% - no LV functional assessment [...] complete documented in this encounter Care Teams Paint Factory Worker Relationship Specialty Start Date End Date Katia Stone PA [address] [place] [phone] PCP - General General Internal Medicine 11/10/18 documented as of this encounter
--- OUTSIDE RECORDS SUMMARY | 2023-12-22 18:16 | XMS_ITS | Encounter Summary ---
Author Organization [facility] Address [facility] [place] [address] Care Team Providers Care Fire Officer Name Role Phone Katia Stone Primary Care Provider [phone] Encounter Details Date Type Department Care Team (Late st Contact Info) Description 07/22/2022 Orders Only Cardiology at [address] [phone] Humberto Ashraf PA [facility] [place] [address] Social History Tobacco Use Types Packs/Day Years Used Date Smoking Tobacco: Never Assessed Sex and Gender Information Value Date Recorded Sex Assigned at Not on file Gender Identity Not on file Sexual Orientation Not on file documented as of this encounter Progress Notes * Humberto Ashraf PA - 07/22/2022 3:02 PM EDT Cardiac Electrophysiology 71yo man with hx of CHB, s/p dual lead [employer] pacemaker implant implanted 04/30/2017, complicated by pericardial effusion with tamponade requiring RA lead reposition on 05/16/2020. RA lead function has continued to deteriorate with significantly elevated pacing threshold. His device has now tripped to DIONICIO on 07/10/2022. Dr. Story evaluated her device on 07/03/2022 at [facility] clinic visit and reviewed risk/benefit of [...] AM EST Hospital Encounter [place] [address] Arrived documented as of this encounter Visit Diagnoses Not on filedocumented in this encounter Care Teams Fire Officer Relationship Specialty Start Date End Date Katia Stone PA [address] [place] [phone] PCP - General General Internal Medicine 11/10/18 documented as of this encounter
--- OUTSIDE RECORDS SUMMARY | 2023-12-22 18:16 | XMS_ITS | Encounter Summary ---
Author Organization [facility] [place] [address] Care Team Providers Care Maint Mechanic Name Role Phone Katia Stone Primary Care Provider [phone] Reason for Visit * Auth/Cert (Routine) Specialty [...] OR PM) (WRVU 4.92) Dylan Story MD [facility] [place] [address] [facility] Referral ID Status Reason Start Date Expiration Date Visits Re quested Visits Authorized [id number] 1 1 Encounter Details Date Type Department Care Team (Late st Contact Info) Description 09/23/2022 1:23 PM EDT Anesthesia [place] [address] Alida Lopez MD [facility] [place] [address] Anesthesia Record Procedure Summary Procedure Name Responsible [...] 1012; metacarpal vein (top of hand), left; ikqu-wap-odmwiw catheter system; 22 gauge; OSH; 09/23/22; 1307 07/10/21 1012 by Marilyn Duncan RN 09/23/22 1307 by Jessica Sandhu RN (RETIRED) Peripheral IV Line - Single Lumen 09/23/22; 1307; metacarpal vein (top of hand), left; ndrb-pvw-ssrsor catheter system; Anatomical Landmarks; 20 gauge; anes; [...] All Anesthesia Providers: Anesthesiologist: Alida Lopez MD CIVIL ESTIMATOR: Jill Ríos CRNA Vitals Value Taken Time BP 125/94 09/23/22 1715 Temp 36.4 ??C (97.5 ??F) 09/23/22 1634 Pulse 73 09/23/22 1722 Resp 20 09/23/22 1722 SpO2 92 % 09/23/22 1722 Pain Level 10 09/23/22 1720 Vitals shown include unvalidated device data. Patient Location: PACU/[facility] Level of Consciousness: Conscious but Sleepy [...] risks discussed with patient. Plan discussed with CIVIL ESTIMATOR and attending. Anesthesia Screening documented in this encounter Plan of Treatment Upcoming Encounters Date Type Department Care Team (Late st Contact Info) Description 02/04/2024 10:00 AM [facility] Hospital Encounter Non[place] [address] Arrived documented as of this [...] mg documented in this encounter Care Teams Maint Mechanic Relationship Specialty Start Date End Date Katia Stone PA [address] [place] [phone] PCP - General General Internal Medicine 11/10/18 documented as of this encounter
--- OUTSIDE RECORDS SUMMARY | 2023-12-22 18:16 | XMS_ITS | Encounter Summary ---
Author Organization [facility] Address [facility] [place] [address] Care Team Providers Care Veterinarian Name Role Phone Katia Stone Primary Care Provider [phone] Encounter Details Date Type Department Care Team (Latest Contact Info) Description 02/09/2023 10:00 AM [facility] Hospital Encounter [place] [address] Discharge Disposition: Home Social History Tobacco Use [...] AM EST Hospital Encounter [place] [address] Arrived documented as of this encounter Visit Diagnoses Not on filedocumented in this encounter Care Teams Veterinarian Relationship Specialty Start Date End Date Katia Stone PA [facility] [address] [place] [phone] PCP - General General Internal Medicine 11/10/18 documented as of this encounter
--- OUTSIDE RECORDS SUMMARY | 2023-12-22 18:16 | XMS_ITS | Encounter Summary ---
Author Organization [facility] Address [facility] [place] [address] Care Team Providers Care Scientific Technical Writer Name Role Phone Katia Stone Primary Care Provider Encounter Details Date Type Department Care Team (Latest Contact Info) Description 08/14/2021 - 08/14/2021 11:59 PM EDT Hospital Encounter Non-Invasive [place] [address] Dylan Story MD [facility] [place] [address] CHB (complete heart block) Discharge Disposition: Home [...] AM EST Hospital Encounter Non-Invasive [place] [address] Arrived documented as of this encounter Procedures [...] complete documented in this encounter Care Teams Scientific Technical Writer Relationship Specialty Start Date End Date Katia Stone PA [address] [facility] [place] [address] PCP - General General Internal Medicine 11/10/18 documented as of this encounter
--- OUTSIDE RECORDS SUMMARY | 2023-12-22 18:16 | XMS_ITS | Encounter Summary ---
Author Organization [facility] Address [facility] [place] [address] Care Team Providers Care Philosophy Lecturer Name Role Phone Katia Stone Primary Care Provider Encounter Details Date Type Department Care Team (Latest Contact Info) Description 08/13/2022 10:00 AM EDT - 08/13/2022 11:59 PM EDT Hospital Encounter [place] [address] Discharge Disposition: Home Social History Tobacco Use [...] AM EST Hospital Encounter Non[place] [address] Arrived documented as of this encounter Procedures [...] on filedocumented in this encounter Care Teams Philosophy Lecturer Relationship Specialty Start Date End Date Katia Stone PA [address] [place] [address] PCP - General General Internal Medicine 11/10/18 documented as of this encounter
--- OUTSIDE RECORDS SUMMARY | 2023-12-22 18:16 | XMS_ITS | Encounter Summary ---
Author Organization [facility] Address [facility] [place] [address] Care Team Providers Care Contact Printer Dry Film Name Role Phone Katia Stone Primary Care Provider Encounter Details Date Type Department Care Team (Latest Contact Info) Description 11/06/2023 10:00 AM EDT - 11/06/2023 11:59 PM EDT Hospital Encounter Non[place] [address] Discharge Disposition: Home Social History Tobacco Use [...] st Contact Info) Description 02/04/2024 10:00 AM [facility] Hospital Encounter Non[place] [address] Arrived documented as of this encounter Procedures [...] on filedocumented in this encounter Care Teams Contact Printer Dry Film Relationship Specialty Start Date End Date Katia Stone PA [address] [place] [phone] PCP - General General Internal Medicine 11/10/18 documented as of this encounter
--- OUTSIDE RECORDS SUMMARY | 2023-12-22 18:16 | XMS_ITS | Encounter Summary ---
Author Organization [facility] Address [facility] [place] [address] Care Team Providers Care Assortment Planner Name Role Phone Katia Stone Primary Care Provider Encounter Details Date Type Department Care Team (Latest Contact Info) Description 11/11/2022 10:00 AM EDT - 11/11/2022 11:59 PM EDT Hospital Encounter Non-Invasive [place] [address] Discharge Disposition: Home Social History Tobacco Use [...] st Contact Info) Description 02/04/2024 10:00 AM [facility] Hospital Encounter Non-Invasive [place] [address] Arrived documented as of this encounter Procedures [...] on filedocumented in this encounter Care Teams Assortment Planner Relationship Specialty Start Date End Date Katia Stone PA [address] [place] [phone] PCP - General General Internal Medicine 11/10/18 documented as of this encounter
--- OUTSIDE RECORDS SUMMARY | 2023-12-22 18:16 | XMS_ITS | Encounter Summary ---
[place] [address] Care Team Providers Care Manager Of Administration Name Role Phone Katia Stone Primary Care Provider [phone] Encounter Details Date Type Department Care Team (Late st Contact Info) Description 09/18/2022 Telephone Cardiology at [address] [phone] Zee Hyde Social History Tobacco Use Types [...] she will schedule him for those at [facility]. documented in this encounter Plan of Treatment Upcoming Encounters Date Type Department Care Team (Late st Contact Info) Description 02/04/2024 10:00 AM [facility] Hospital Encounter Non-Invasive [place] [address] Arrived documented as of this encounter Visit Diagnoses Not on filedocumented in this encounter Care Teams Manager Of Administration Relationship Specialty Start Date End Date Katia Stone PA [address] [place] [phone] PCP - General General Internal Medicine 11/10/18 documented as of this encounter
--- OUTSIDE RECORDS SUMMARY | 2023-12-22 18:16 | XMS_ITS | Encounter Summary ---
Author [facility] [place] [address] Care Team Providers Care National Account Manager Name Role Phone Katia Stone Primary Care Provider Encounter Details Date Type Department Care Team (Latest Contact Info) Description 05/15/2022 10:00 AM EDT - 05/15/2022 11:59 PM EDT Hospital Encounter Non-[place]vasive [place] [address] Discharge Disposition: Home Social History Tobacco Use [...] AM EST Hospital Encounter Non-Invasive [place] [address] Arrived documented as of this encounter Procedures Procedure Name Priority Date/Time Associated Diagnosis Comments CARDIAC DEVICE CHECK - REMOTE Routine 03/28/2022 1:02 AM EST documented in this encounter Results * Cardiac Device Check - Remote (03/28/2022 1:02 AM EST) Anatomical Region Laterality Modality Other 03/28/2022 1:02 AM EST Ivan Mar MD IMPLANTABLE CARDIAC DEVICE documented in this encounter Visit Diagnoses Not on filedocumented in this encounter Care Teams National Account Manager Relationship Specialty Start Date End Date Katia Stone PA [address] [place] [phone] PCP - General General Internal Medicine 11/10/18 documented as of this encounter
--- OUTSIDE RECORDS SUMMARY | 2023-12-22 18:16 | XMS_ITS | Encounter Summary ---
Author Organization [facility] Address [facility] [place] [address] Care Team Providers Care Manager Leasing Name Role Phone Katia Stone Primary Care Provider [phone] Reason for Visit * Auth/Cert (Routine) Specialty [...] OR PM) (WRVU 4.92) Dylan Story MD [facility] [place] [address] [facility] Referral ID Status Reason Start Date Expiration Date Visits Re quested Visits Authorized [id number] 1 1 Encounter Details Date Type Department Care Team (Late st Contact Info) Description 09/23/2022 12:06 PM EDT - 09/23/2022 2:36 PM EDT Surgery [place] [address] Dylan Story MD [facility] [place] [address] ELECTROPHYSIOLOGY PROCEDURE Social History Tobacco Use Types Packs/Day Years Used Date Smoking Tobacco: Never Smokeless Tobacco: Never Tobacco Cessation:Counseling Given: Not Answered Alcohol Use Standard Drinks/Week Comments Yes 14 (1 standard drink = 0.6 oz pu re alcohol) [facility] Inpatient Questions Answer Date Recorded Does [...] Tim Mera Patient Age: 71 y.o. Language: Cook Islander Race: White Ethnicity: Not nor Admit date: 09/23/2022 Discharge date and time: 09/24/2022 1315 Attending Physician: Dylan Story MD Discharge Physician: Dylan Story MD Follow-up Recommendations for Providers: NEW - replaced [employer] dual lead pacemaker with new atrial and ventricular pacing leads. Old leads capped and abandoned. Stable for discharge to home Needs non-emergent ambulance for transport back to [facility] in [place], [place]. Outpatient follow up scheduled at [facility] for 10 post implant check. Inpatient Provider Contact Information: Cardiac Electrophysiology [phone], option #3 Discharge Diagnoses (Hospital Problems) and Secondary Diagnoses (Chronic Problems): Active Hospital Problems Diagnosis Complete heart block Pacemaker - dual lead [employer] pacemaker Resolved Hospital Problems No resolved problems to display. Operations/Major Procedures: Operations: Procedure(s): ELECTROPHYSIOLOGY PROCEDURE REMOVAL PPM GENERATOR W REPL PPM GEN; DUAL LEAD (WRVU 5.52) REPOSITIONING PREVIOUSLY PLACED ELECTRODE (ICD OR PM) (WRVU 4.92) 09/23/2022 History of Presentation: 71 y.o. male with a history of complete heart block s/p dual chamber permanent pacemaker April 2017 at [facility] course complicated by both pericardial effusion [...] RV pacing leads were implanted. A new [employer] pacemaker pulse generator was also implanted. [...] 106 (L): Data is abnormally low Treatments: Java Groovy Developer Model # Serial # Generator (New) [employer] Sci L311 064401 Atrial Lead (New) [employer] Sci 7841 [id number] RV Lead [employer] 7742 807547 Old RA lead capped and abandoned Old RV lead found to have insulation deterioration and this lead was also capped and abandoned New RA and RV leads placed [employer] pulse generator implanted DDD @ 60/120 Discharge [...] by mouth 3 times daily. Generic drug: tulxle-xvbdyice-pebaewd DR 1 capsule Refills: 0 fentaNYL 12 [...] incision. Make sure to use a cloth covered helmet puller (such as a towel) in between the [...] F. The office scheduling phone number is [phone]. ARM MOVEMENT RESTRICTIONS POST-IMPLANT - Do not [...] please call the Cardiac ElectrophysiologyTriage Nurse at [phone], option 3. General Instructions Future Appointments and Orders Future Appointments and Orders Future Appointments Provider Department Dept Phone 10/04/2022 11:00 AM Maite Lozano RN Cardiology at [facility] Arrive at: Commissions Coordinator Area [phone] 12/27/2022 11:00 AM Maite Lozano RN Cardiology at [facility] Arrive at: Commissions Coordinator Area [phone] Discharge References/Attachments None Dylan Story MD [facility] [...] incision. Make sure to use a cloth covered helmet puller (such as a towel) in between the [...] F. The office scheduling phone number is [phone]. ARM MOVEMENT RESTRICTIONS POST-IMPLANT - Do not [...] please call the Cardiac ElectrophysiologyTriage Nurse at [phone], option 3. documented in this encounter Medications [...] General Information Tim Mera 1950 Medicare Number: [id number] Transport Date: 09/24/22 (PCS is valid for round trips on this date and for all repetitive trips in the 60-day range as noted below.) Origin: [place] [address] Destination: [facility] [address] [place] [address] Is the patient's stay covered under Medicare [...] means is contraindicated by the patient's condition: territory sales manager medical required. Patient unable to tolerate seated position [...] wheelchair van (i.e. seated during transport, without territory sales manager medical or monitoring?): No 4) In addition to complete questions 1-3 above, please select any of the following conditions that apply: *Note: supporting documentation for any boxes checked must be maintained in the patient's medical records Moderate/severe pain on movement charge attendant required Section III - Signature of [...] 09/24/2022 10:54 AM EDT Office of Care Management/Whiskey Filterer Patient Name: Tim Mera : 1950 Patient is returning to a SNF bed at [facility]. [facility] arranged for a 1300hrs transport. Ambulance will need: Medicare ambulance form completed and signed (MD or Climbing Guide RN/BLADE GRADER OPERATOR) Copy of patient demographics [place] [facility] DNR/DNI order, if active No MD to MD report necessary. Please call Nursing Report to , ask for political science professor. Info to accompany patient: Copies of Medication Administration Records and IV sheets for past 10 days. Plan: Whiskey Filterer will be available to the patient and Climbing Guide-RN and/or Social Workerfor further assistance. Patient will be discharged to: [facility] [address] [place] [address] Paco Haider, Whiskey Filterer * Humberto Ashraf PA - 09/24/2022 10:31 AM EDT Inpatient Cardiac Electrophysiology Discharge Day Note Patient Name: Tim Mera Service: EP Responsible Attending: Dylan Story MD Reason for continued hospitalization: POD#1 pacemaker pulse generator and lead replacement Active Problems: Active Hospital Problems Diagnosis Complete heart block Pacemaker - dual lead [employer] pacemaker Resolved Hospital Problems No resolved problems to display. Interval History: 71 y.o. male with a history of complete heart block s/p dual chamber permanent pacemaker April 2017 at [facility] course complicated by both pericardial effusion [...] RV pacing leads were implanted. A new [employer] pacemaker pulse generator was also implanted. [...] Oral Daily loratadine 10 mg Oral Daily jdkbvb-wgltbbqc-zfloevx DR 1 capsule Oral TID magnesium oxide [...] 0.00 - 0.04 x10(3)/mcL Pertinent Radiographic/Diagnostic Results: Java Groovy Developer Model # Serial # Generator (New) [employer] L311 [id number] Atrial Lead (New) [employer] 7841 1438160 RV Lead [employer] 7742 774412 Old RA lead capped and abandoned Old RV lead found to have insulation deterioration and this lead was also capped and abandoned New RA and RV leads placed [employer] [place] [employer] pulse generator implanted DDD @ 60/120 P wave: 2.2mV R wave: none above 30 Atrial impedance: 581 ohms RV impedance:777 ohms RA threshold: 0.7V @0.4ms RV threshold: 0.4V @ 0.4ms AP 38%; SLOTTER OPERATOR 100% No events Estimated battery longevity >8 years CXR: 09/24/2022 Left sided dual lead pacemaker 4 leads; two abandoned No pneumothorax +small bilateral pleural effusions Assessment: Tim Mera is a 71 y.o. male withhx of complete heart block, s/p dual lead [id number] at [facility], now with cell depletion, fractured atrial lead and unexpected insulation deteriorationof RV lead resulting placement of new RA and RV pacing leads along with a new pulse generator. Device function is excellent today. Plan: NEW - replaced [employer] dual lead pacemaker with new atrial and ventricular pacing leads. Old leads capped and abandoned. Stable for discharge to home Needs non-emergent ambulance for transport back to [facility] in [place], [place]. Outpatient follow up scheduled at [facility] for 10 post implant check. Provider: GIRISH Marin EP Procedural attending physician: Adiel Story MD EP Consult positional pager #[phone](EPMD) EP Device interrogation positional pager # [phone] * Rosie Ashraf RN - 09/23/2022 5:37 [...] dual chamber permanent pacemaker April 2017 at [facility] course complicated by both pericardial effusion [...] Chest Tube/Pleural Drain 07/10/2021 Vick Boss MD [facility] RAD CT SCAN CT PERITONEAL DRAINAGE 07/10/2021 CT Guided Drain Peritoneal 07/10/2021 Vick Boss MD [facility] RAD CT SCAN LAB VALUES: Laboratory Data: Lab Results Component Value Date WBC 9.4 09/23/2022 HGB 13.1 (L) 09/23/2022 HCT 39.5 (L) 09/23/2022 MCV 104.8 (H) 09/23/2022 ASSESSMENT AND PLAN: Tim Mera is a 71 y.o. male with a history of complete heart block s/p dual chamber permanent pacemaker April 2017 at [facility] course complicated by both pericardial effusion [...] Vini Lucero MD Cardiac Electrophysiology Fellow [facility] Pager [phone] 09/23/2022 I met with the patient today [...] in agreement. Dr. Dylan Story, electrophysiology attending ([id number]) documented in this encounter Miscellaneous Notes * Care Management Discharge - Tim Casillas RN - 09/24/2022 11:30 AM EDT CARE MANAGEMENT FINAL DISCHARGE NOTE Chart reviewed, care reviewed with primary team and at interdisciplinary rounds. Patient is medically ready for discharge to [facility]. Needs for Transition of Care: Plan for discharge is: Half-Way Facility / Swing Outpatient Agency/Support Group Needs: None Agency Referrals & Follow-up Care: Contact information for follow-up [facility] [address] [place] [id number] Transportation: ambulance Ambulance Finance Conversation Completed: 09/24/2022 Spoke to: Radha Chand ROLL PLUGGER at accepting facility Verbalized Understanding: Yes Functional [...] Operative Note Patient Name: Tim Mera : [id number] MR#: [id number] Case Date: 09/23/2022 Surgeon: Surgeon(s) and Role: [...] AM EST Hospital Encounter [place] [address] Arrived Scheduled Orders Name Type Priority Associated [...] who have questions please contact the health health care liaison that requested your imaging first. ? Electronically signed by: Denilson Puentes MD, [facility] ([phone]), at 09/24/2022 8:47 AM Narrative 09/24/2022 8:47 [...] patients who have questions please contactthe health health care liaison that requested your imaging first. Electronically signed by: Denilson Puentes MD, [facility]([phone]), at 09/24/2022 8:47 AM Dylan Story MD IMG DX ORDERABLES * EKG 12 Lead (09/23/2022 5:18 PM EDT) Ventricular rate 74 BPM MUSE SYSTEM Atrial Rate 74 BPM MUSE SYSTEM P-R Interval 168 ms MUSE SYSTEM QRS Duration 164 ms MUSE SYSTEM Q-T Interval 458 ms MUSE SYSTEM QTC Calculated (Bezet) 508 ms MUSE SYSTEM Calculated P [place] 13 degrees MUSE SYSTEM Calculated R [place] -72 degrees MUSE SYSTEM Calculated T [place] 91 degrees MUSE SYSTEM INTERPRETATION Atrial-sense d ventricular- paced rhythm Abnormal ECG No previous ECGs available Confirmed by Bro Dasilva ([id number]) on 09/24/2022 9:15:33 AM MUSE SYSTEM 09/23/2022 [...] PATIENT NAME: Tim Mera PATIENT : 1950 STATION MASTER: Dylan Story MD FELLOW: Vini Lucero MD REFERRING PROVIDER: GIRISH Rai PROCEDURE DATE: 09/23/2022 PATIENT HISTORY: Mr. Mera is a 71 year old man with a history of complete heart block status post dual chamber [employer] pacemaker in 2018 with course complicated [...] the entire procedure. LEAD AND GENERATOR DATA: Java Groovy Developer Model # Serial # Generator (New) [employer] L311 830896 Atrial Lead (New) [employer] 7841 6119407 RV Lead (new) [employer] 7842 9569047 REMOVED GENERATOR AND CAPPED ATRIAL LEAD: Java Groovy Developer Model # Serial # Generator (Explanted) [employer] L111 937887 Atrial Lead (Capped) Si[employer]onic 3830 [id number] ?? Ventricular lead (capped) shipbeat 7742 211509 PACE/SENSE DATA: Sensed wave (mV) Threshold (V) [...] with new A and V leads (cpt 11221) Dylan Story MD S Cardiac Electrophysiology 09/24/2022 1:57 PM Procedure Note Dylan Story MD - 09/27/2022 Images from the original note were not included. PACEMAKER GENERATOR CHANGE AND REVISION OF RA AND RV LEADS PATIENT NAME: Tim Mera PATIENT : 1950 STATION MASTER: Dylan Story MD FELLOW: Vini Lucero MD REFERRING PROVIDER: GIRISH Rai PROCEDURE DATE: 09/23/2022 PATIENT HISTORY: Mr. Mera is a 71 year old man with a history of complete heart blockstatus post dual chamber [employer] pacemaker in 2018 with coursecomplicated by [...] the entire procedure. LEAD AND GENERATOR DATA: Java Groovy Developer Model # Serial # Generator (New) [employer] L311 367918 Atrial Lead (New) [employer] 7841 4728282 RV Lead (new) [employer] 7842 1529248 REMOVED GENERATOR AND CAPPED ATRIAL LEAD: Java Groovy Developer Model # Serial # Generator (Explanted) [employer] L111 455257 Atrial Lead (Capped) Medtronic 3830 [id number] Ventricular lead (capped) shipbeat 7742 012481 PACE/SENSE DATA: Sensed wave (mV) Threshold (V) [...] pacemaker with new A and V leads(cpt 84358) Dylan Story MD [facility] Cardiac Electrophysiology 09/24/2022 1:57 PM Dylan Story MD EP PROCEDURE ORDERAB LES * (ABNORMAL) Differential, Automated (09/23/2022 12:05 PM EDT) Neutrophil % 62.1 % [facility] Neutrophil Absolute 5.82 1.70 - 6.10 x10(3)/mc L [facility] Lymph % 22.3 % [facility] Lymphocytes Abs 2.1 0.9 - 3.2 x10(3)/mc L [facility] Monocyte % 11.8 % [facility] Monocyte Abs 1.1(H) 0.3 - 0.9 x10(3)/mc L [facility] Eos % 2.1 % [facility] Eosinophils Abs 0.2 0.0 - 0.4 x10(3)/mc L [facility] Basophil % 1.1 % [facility] Baso Absolute 0.1 0.0 - 0.1 x10(3)/mc L [facility] Immature Gran % 0.60 % [facility] Comment: Immature granulocytes(IG's)percentage and absolute count will include metamyelocytes, myelocytes, and promyelocytes. Blood smears from CBCs yielding IG's will be scanned manually for concordance. If this scan disagrees with the automated IG or if promyelocytes are noted, a manual differential will be performed. Immature Gran Absolute 0.06(H) 0.00 - 0.04 x10(3)/mc L [facility] Blood 09/23/2022 12:0 5 PM EDT 09/23/2022 12:25 PM EDT Narrative Resulting Agency Comment Spec In Lab Dylan Story MD HEMATOLOGY ORDERABLE S [facility] [place] [address] * (ABNORMAL) Hemogram (09/23/2022 12:05 PM EDT) White Blood Cell 9.4 4.0 - 9.5 x10(3)/mc L [facility] Red Blood Cell 3.77(L) 4.58 - 5.54 x10(6)/mc L [facility] Hemoglobin 13.1(L) 13.7 - 16.5 g/dL [facility] Hematocrit 39.5(L) 40.5 - 48.5 % [facility] Mean Cell Volume 104.8(H) 82.9 - 93.[address] [facility] Mean Cell Hemoglobin 34.7(H) 27.5 - 32.[address] [facility] Mean Cell Hemoglobin Concentration 33.2 32.0 - 35.7 g/dL [facility] Platelet 276 145 - 357 x10(3)/mc L [facility] RDW Standard Deviation 47.7(H) 36.0 - 45.[address] [facility] RDW coefficient of variation 12.3 11.4 - 13.8 % [facility] Mean Platelet Volume 10.4 7.6 - 12.[address] [facility] NRBC% auto 0.0 % [facility] NRBC Absolute 0.000 0.000 - 0.000 x10(3)/mc L [facility] Blood 09/23/2022 12:0 5 PM EDT 09/23/2022 12:25 PM EDT Narrative Resulting Agency Comment Spec In Lab Dylan Story MD HEMATOLOGY ORDERABLE S Performing Organization Address City/[facility]/ZIP Co de Phone Number [facility] [place] [address] * (ABNORMAL) Basic Metabolic Panel (non-fasting) (09/23/2022 12:05 PM EDT) Glucose 106 65 - 199 mg/dL [facility] Comment:Diabetes: >=200 mg/d L plus symptoms Blood Urea Nitrogen 8(L) 10 - 20 mg/dL [facility] Creatinine 0.58(L) 0.80 - 1.50 mg/dL [facility] Sodium 130(L) 135 - 145 mmol/L [facility] Potassium 5.0 3.5 - 5.0 mmol/L [facility] Comment: Please note: ??Patients with WBC >100,000 may have falsely elevated Potassium levels. ??For accurate Potassium quantification in these patients send serum separator tube (gold top) for subsequent determinations. ??Contact the Clinical Chemistry Laboratory if there are any questions. Chloride 95(L) 98 - 107 mmol/L [facility] Carbon Dioxide 25 22 - 31 mmol/L [facility] Anion Gap 10 5 - 15 mmol/L [facility] Calcium 9.3 8.5 - 10.5 mg/dL [facility] Est Glomerular Filtration Rate 104 >=60 mL/min/1. 73 m?? [facility] Comment: This patient's estimated GFR [...] In Lab Dylan Story MD CHEMISTRY ORDERABLES [facility] [place] [address] documented in this encounter Visit Diagnoses Diagnosis [...] Given 09/23/2022 2:11 PM EDT 400 mg zubtbm-uilcadxk-zxvoxbj DR (Creon 24) 24,000-76,000 -120,000 unit per [...] 1411 (Given - Provider: Vini Lucero MD) sgvmqj-koknudug-kqbkedr DR (Creon 24) 24,000-76,000 -120,000 unit per [...] documented in this encounter Care Teams Manager Leasing Relationship Specialty Start Date End Date Katia Stone PA [address] [place] [address] PCP - General General Internal Medicine 11/10/18 documented as of this encounter
--- OUTSIDE RECORDS SUMMARY | 2023-12-22 18:16 | XMS_ITS | Encounter Summary ---
Author Organization [facility] [place] [address] Care Team Providers Care Paint Sprayer Sandblaster Name Role Phone Katia Stone Primary Care Provider [phone] Reason for Visit * Reason Onset Date Comments Pre Procedure Call 09/11/2022 Encounter Details Date Type Department Care Team (Late st Contact Info) Description 09/11/2022 Telephone Cardiology at [address] [phone] Patsy Gaffney, RN Pre Procedure Call Social [...] Generator Replacement + Atrial Lead Replacement EP FISH DRESSING MACHINE FEEDER COORDINATION CHECKLIST Patient Name: Tim Mera [facility]ructions also to be faxed) Patient Performing Agribusiness Professor: Dyaln Story Referring Provider: Humberto Ashraf Date of Procedure: 09/23/22 Arrival Time/ Case Time: 12:00 pm / 1:00 pm Check In Location: Liquor Store Manager Desk 4W Date Patient was Called: 09/11/22 Procedure: Generator Replacement + New Atrial Lead Placement Company: [employer] Type: DC PCM Orders: Yes Lab Orders: [...] overnight , understands that they will need armored car driver on day of discharge Notified pt that Webber catheter may be placed on day of procedure depending on type & duration of case. documented in this encounter Plan of Treatment Upcoming Encounters Date Type Department Care Team (Late st Contact Info) Description 02/04/2024 10:00 AM [facility] Hospital Encounter [place] [address] Arrived documented as of this encounter Visit Diagnoses Not on filedocumented in this encounter Care Teams Paint Sprayer Sandblaster Relationship Specialty Start Date End Date Katia Stone PA [address] [place] [phone] PCP - General General Internal Medicine 11/10/18 documented as of this encounter
--- OUTSIDE RECORDS SUMMARY | 2023-12-22 18:16 | XMS_ITS | Encounter Summary ---
Author Organization [facility] [place] [address] Care Team Providers Care Medication Manager Name Role Phone Katia Stone Primary Care Provider [phone] Encounter Details Date Type Department Care Team (Late st Contact Info) Description 02/13/2022 Orders Only Cardiology at [address] [phone] Dylan Story MD [facility] [place] [address] Social History Tobacco Use Types Packs/Day Years [...] AM EST Hospital Encounter Non-Invasive [place] [address] Arrived documented as of this encounter Procedures [...] on filedocumented in this encounter Care Teams Medication Manager Relationship Specialty Start Date End Date Katia Stone PA [address] [facility] [place] [facility] [place] [address] PCP - General General Internal Medicine 11/10/18 documented as of this encounter
--- OUTSIDE RECORDS SUMMARY | 2023-12-22 18:16 | XMS_ITS | Encounter Summary ---
Author Organization [facility] Address [address] [place] [address] Care Team Providers Care Ic Design Manager Name Role Phone None, Provider Primary Care Provider Katia Wilks PA-C Primary Care Provider [phone] Reason for Referral * (Routine) - Receiving Office to Obtain Authorization Specialty Diagnoses / Procedures Referred By Jael ho Referred To Contact Coleen Yañez NP [address] [place] [phone] Referral ID Status Reason Start Date Expiration Date Visits Requested Visits Authorized [id number] Receiving Office to Obtain Authorization Specialty Services [...] ho Referred To Contact Coleen Yañez NP [address] [place] [phone] Referral ID Status Reason Start Date Expiration Date Visits Requested Visits Authorized [id number] Receiving Office to Obtain Authorization Specialty Services Required 05/02/2017 1 1 Comments You must contact us if we have not contacted you or you have missed your scheduled appointment. If you have any nursing questions, please don't hesitate to call the Cardiac Arrhythmia Service at [facility] at [phone] or , extension [phone]. For any scheduling of appointments, please call [phone] or , extension [phone]. . * (Routine) - Receiving Office to Obtain Authorization Specialty Diagnoses / Procedures Referred By Contac t Referred To Contact Coleen Yañez NP [address] [phone] Referral ID Status Reason Start Date Expiration Date Visits Requested Visits Authorized [id number] Receiving Office to Obtain Authorization Specialty Services Required 05/02/2017 1 1 Comments Appointment on May 13, 2017 at 9 am for an incision site check with the nurse in the device clinic at [facility]. Phone [phone]. [facility] is located at [address] [place] [address] * (Routine) - Receiving Office to Obtain Authorization Specialty Diagnoses / Procedures Referred By Contac t Referred To Contact Coleen Yañez NP [address] [place] [phone] Referral ID Status Reason Start Date Expiration Date Visits Requested Visits Authorized [id number] Receiving Office to Obtain Authorization Specialty Services [...] scheduled at your first appointment. - [facility] Cardiology is located at [address] [facility] in [place] -Clinics are also held in [facility], and [place], [place] and [facility]. If you live in those areas, we will make arrangements for follow-up appointments in one of those clinics.. Reason for Visit * Reason Comments Bradycardia Pt transferred from [place] with new complete heart block. VSS on arrival. CC DOBBS. Encounter Details Date Type Department Care Team (Late st Contact Info) Description 04/30/2017 17:08 EST - 05/04/2017 18:10 EST Hospital Encounter [facility] Cardiac/Telemetry Unit [address] [place] [id number] Bridget Fields MD [address] [place] [phone] Kenneth Hendrickson MD [address] [place] [phone] Houston Corey MD [address] [place] [phone] Heart block AV third degree (CMS-HCC) (HCC-CMS) [...] Principal/Final Diagnosis: Heart block AV third degree ([facility]) Additional Problems Managed in the Hospital Active Hospital Problems Diagnosis Date Noted ??? *Heart block AV third degree ([facility]) 04/30/2017 ??? Hypertensive urgency 05/01/2017 ??? Acute on chronic diastolic congestive heart failure ([facility]) 05/01/2017 Resolved Hospital Problems Diagnosis Date Noted Date Resolved No resolved problems to display. Principal Procedure: PPM 05/02/17 Secondary Procedures: none Hospital Course: David Farfan is a 66 y.o. male with no known PMH transferred from [facility] on 04/30/17 for complete heart block. 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 He complianed of 2-3 months of SOB which worsened 2-3 weeks prior to admission and reached critical point 2-3 days prior to admission when he had symptoms at rest with 3 pillow orthopnea and mild increased LE swelling prompting presentation to [facility]. On arrival to ED he was afebrile, HR 58, BP 190/103 withnegative labs. ECHO showed EF 65% with moderate concentric LVH, mild LA dilation and mild AST/TR. His HR dropped to the 30s prompting transfer to [facility]. On arrival here patient was asymptomatic with [...] Post Hospital Visit with Caitie Atwood NP [facility] Cardiology - [facility] (--) [address] [place] [address] [place] [address] Follow-up appointments and procedures Pacemaker check Your [...] scheduled at your first appointment. - [facility] Cardiology is located at [address] in [place] -Clinics are also held in [facility], and [facility]. If you live in those areas, we [...] the nurse in the device clinic at [facility]. Phone [phone]. [facility] is located at [address] [place] [address] Authorizing Provider: Coleen Yañez NP ~Please note: You must contact us if we have not contacted you or you have missed your scheduled appointment. If you have any nursing questions, please don't hesitate to call the Cardiac Arrhythmia Service at [facility] at or , extension [phone]. For any scheduling of appointments, please call [phone] or , extension [phone]. . Authorizing Provider: Coleen Yañez NP Additional Information: Appointment on May 13, 2017 at 9 am for an incision site check with the nurse in the device clinic at the [facility]. . [facility] is located at [address] [place] [address] . You have an appointment with Katia Mccallum PA-C at [facility] on 05/29/2017 at1:00 pm. If you have questions or need to reschedule your appointment, please call [phone]. Please arrive 15 minutes early to complete any necessary. Bring a copy of this AVS Summary with you. Cardiology follow up on June 16, 2017 at 2:[address] Torres at the [facility]. [facility] is located at [address] [place] [address]. Pacemaker device check on August 05, 2017 at 10 am at the [facility]. [facility] is located at [address] [place] [address]. Discharge Handoff Communication I called Katia Mccallum's [...] nurse in the device clinic at the [facility]. . [facility] is located at [address] [place] [address] . You have an appointment with Katia Mccallum PA-C at [facility] on 05/29/2017 at1:00 pm. If you have questions or need to reschedule your appointment, please call [phone]. Please arrive 15 minutes early to complete any necessary. Bring a copy of this AVS Summary with you. Cardiology follow up on June 16, 2017 at 2:[address] Torres at the [facility]. [facility] is located at [address] [place] [address]. Pacemaker device check on August 05, 2017 at 10 am at the [facility]. [facility] is located at [address] [place] [address]. * Discharge Instr - Other Orders* Melida [...] to be connected with a social worker delinquency prevention * Attachments The following attachments cannot be sent through Care Everywhere. * HEART FAILURE: AVOIDING TRIGGERS (TAJIK) documented in this encounter Medications at Time [...] - 05/04/2017 1500 EST I spoke with main line station engineer CM regarding patient's lack of electricity at his home. She recommended I contact patient's PCP, [facility] for further assistance, but that no other action could be made on Friday. Was unable to leave message for their office today and efforts to contact them on05/02 were met with unreturned messages. I have instructed patient to call their office on Friday to be connected to social worker delinquency prevention. Amelia Partida DO Internal Medicine Resident PGY-3 [...] pick him up at [place]. AMEENA TEIXEIRA supply coordinator #[id number] * Amelia Partida MD - 05/04/2017 1204 [...] known PMH admitted in transfer 04/30/17 from [facility] for asymptomatic complete heart block [...] this morning. He reports he uses the [facility] in [place]. Review of Systems Pertinent items are noted [...] known PMH admitted in transfer 04/30/17 from [facility] for asymptomatic complete heart block [...] been connected with Katia Mccallum PA-C for [facility] primary care on 05/29 at 1pm Radha Lowery MD Internal Medicine PGY-2 Pager #[phone] 05/03/2017 13:15 Associated attestation - Houston Corey [...] known PMH admitted in transfer 04/30/17 from [facility] for asymptomatic complete heart block [...] been connected with Katia Mccallum PA-C for [facility] primary care on 05/29 at 1pm [...] FOR ADMISSION: Heart block AV third degree ([facility]) Patient understands reason for admission: PATIENT CONTACT INFO VERIFIED: Yes (Eva Rudolph [phone]) PATIENT ADDRESS VERIFIED: Yes LIVING ARRANGEMENTS AND ACCESSIBILITY ISSUES: Living Arrangements: Alone Levels: 1 Stairs to enter: 2 Handicap access: None Bathroom located on bedroom level?: Yes What in home social supports are available to the patient? Friends / neighbors. Patient lives alonein a mobile home in [place]. He has no immediate family and [...] PCP Verified: Yes (Patient has gone to [facility] in the past to see Dr. Garcia who has since retired.) Specialists: None Type of Home Health Services: None DME Provider: None Pharmacy: [facility] - [address] - [place], [place] - [address] [facility] [phone] Home Health: None Other: POST HOSPITAL TRANSITION PLAN: Case management will continue to follow through transition to discharge. Anticipate discharge to home when medically stable. No needs are identified at this time. Patient said he has a friend who can provide transportation home. Ivelisse Rueda RN Case Manager #[id number] * Reba Marie, [facility] - 05/01/2017 1111 EST Transitions of Care - Pharmacy Admission Medication Reconciliation David Farfan is a 66 y.o. male admitted on 04/30/2017 for Heart block AV third degree ([facility]) Pharmacist Interventions/Recommendations: 1. Per patient report, the only medication he was taking prior to admission was ibuprofen 400mg daily for knee pain. Counseled patient to stop taking ibuprofen/NSAIDs as they are harmful to the heartand raise blood pressure-->recommended using acetaminophen for pain instead. 2. Confirmed patient would like to use [facility] in [place], [place] at discharge> please send all discharge prescriptions here. 3. Paged team with findings. Medication History Obtained from: Patient (Self) Medication reconciliation was performed. Discrepancies are noted in BOLD. Clarifications are noted in RED. Medications No prescriptions prior to admission. Additional Prior to Admission Yetu-jio-Snpoife Products as noted by Patient/Family: Ibuprofen 400mg daily for knee pain Preferred Pharmacy: [facility] - [place], [place] Barriers to Learning: None apparent Barriers to Obtaining Medications: None apparent Barriers to Taking Medications: None apparent Please feel free to contact me or the Transitions of Care Pharmacy Team with questions or concerns. Thank you Reba Marie, PharmD, [facility] [phone] Pager: [phone] * Houston Corey MD - 05/01/2017 0729 [...] known PMH admitted in transfer 04/30/17 from [facility] for asymptomatic complete heart block [...] H&P Admit Date: 04/30/2017 PCP: Provider None Human Resources Professional: none CC: complete heart block HPI: David Farfan is a 66 y.o. male with no known PMH who presents in transfer from [place] for complete heart block. Briefly, patient last saw a doctor approximately 12 years ago after he was admitted for NM rule outin [place]. He reports having a stress at that time though does not recall being told it was abnormal and was not discharged on any medications. He saw a public information director once in follow-up and has not [...] present to the ED. On arrival to [facility], patient was afebrile HR 58, [...] ASA 324 mg prior to transfer to [facility]. On arrival here, he was alert [...] remote stress test 12 years ago in [place] Review of Systems A 10 point review of systems was discussed and is negative aside from what is noted in HPI. PMH: none PSH: benign tumor removal R forearm, L knee arthroscopy Family History: no history of early CAD/ NM or heart block Social History: Lifetime non-smoker, currently chews tobacco (1 can lasts 2-3 days). 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 He is currently [...] in this encounter ED Notes * Kenneth Hendrikcson MD - 04/30/2017 1719 EST DOS: 04/30/2017 Chief Complaint Patient presents with ??? Bradycardia Pt transferred from [place] with new complete heart block. VSS on arrival. CC DOBBS. HPI HPI Comments: I, Maite Schmitt, am scribing for Kenneth Hendrickson MD while he/she is personallyperforming the service. Maite Schmitt 04/30/2017 17:19 David Farfan is a 66 y.o. male with a history of heart block AV third degree who presents to the ED with bradycardia. The patient was transferred from [place] with complaints of dyspnea on exertion and [...] ER after EKG, whom referred him to [facility] for pacemaker placement. Denies CP, vomiting, [...] ED with bradycardia.The patient was transferred from [place] with complaints of dyspnea on exertion and [...] W/ CARDS ACCEPTING. NOTE TAKEN DR HENDRICKSON ([facility]). documented in this encounter Miscellaneous Notes * [...] AVS received. Pt left with son and mjvewzhx-la-uub via wheelchair. BP 115/79 (BP Cuff Location: [...] Care - Don Alvarado RN - 05/02/2017 9760 EST Problem: Daily Care Plan Goals Goal: [...] Care - Meet Matias RN - 05/02/2017 0067 EST Problem: Daily Care Plan Goals Goal: [...] VSS, monitor tele D: Patient arrived to [place] [address] at 1900. Vital signs noted, BP 180s/80s. [...] EST) 05/09/2017 13:5 1 EST Scan 2 Vault Cashier PROCEDURE/MINOR VELMA GICAL ORDERABLES * ECG REPORT - SCANNED (05/08/2017 8:27 EST) 05/08/2017 8:27 EST Scan 2 Vault Cashier PROCEDURE/MINOR VELMA GICAL ORDERABLES * IMPLANT RECORD - SCANNED (05/08/2017 8:14 EST) 05/08/2017 8:14 EST Scan 2 Vault Cashier PROCEDURE/MINOR VELMA GICAL ORDERABLES * ECG REPORT - SCANNED (05/08/2017 8:14 EST) 05/08/2017 8:14 EST Scan 2 Vault Cashier PROCEDURE/MINOR VELMA GICAL ORDERABLES * ECG REPORT - SCANNED (05/08/2017 8:14 EST) 05/08/2017 8:14 EST Scan 2 Vault Cashier PROCEDURE/MINOR VELMA GICAL ORDERABLES * IMPLANT RECORD - SCANNED (05/08/2017 8:14 EST) 05/08/2017 8:14 EST Scan 2 Vault Cashier PROCEDURE/MINOR VELMA GICAL ORDERABLES * (ABNORMAL) GLUCOSE, GLUCOMETER (05/04/2017 7:41 EST) Glucose, Fingerstick 104(H) 70 - 100 mg/dl 05/04/2017 7:42 EST [facility] [employer] Teacher [place] [id number] 05/04/2017 7:42 EST [facility] Comment:Test Performed by Nu rsing Services BLOOD SPECIMEN / Unknown 05/04/2017 7:41 EST 05/04/2017 7:42 EST Houston Corey MD CHEMISTRY & BLOO D GAS ORDERABLES Performing Organization Address City/[facility]/ZIP Co de Phone Number [facility] [address] [place] [address] * CREATININE (05/03/2017 5:42 EST) Creatinine 0.67 0.66 - 1.25 mg/dl 05/03/2017 6:56 EST [facility] GFR, Calculated 100 >60 ml/min/1.7 3m2 05/03/2017 6:56 EST [facility] Comment: eGFR calculated using CKD-EPI equation for non Americans. Multiply eGFR by 1.16 for Americans. Blood specimen (specimen) BLOOD SPECIMEN / Unknown 05/03/2017 5:42 EST 05/03/2017 6:20 EST Houston Corey MD CHEMISTRY & BLOO D GAS ORDERABLES Performing Organization Address [facility]/ZIP Co de Phone Number [facility] [address] [place] [address] * (ABNORMAL) BUN (05/03/2017 5:42 EST) BUN 8(L) 10 - 26 mg/dl 05/03/2017 6:56 EST [facility] Blood specimen (specimen) BLOOD SPECIMEN / Unknown 05/03/2017 5:42 EST 05/03/2017 6:20 EST Houston Corey MD CHEMISTRY & BLOO D GAS ORDERABLES Performing Organization Address [facility] Co de Phone Number [facility] [address] [place] [address] * (ABNORMAL) ELECTROLYTES (05/03/2017 5:42 EST) Sodium 134(L) 136 - 145 mEq/L 05/03/2017 6:56 EST [facility] Potassium 4.2 3.5 - 5.0 mEq/L 05/03/2017 6:56 [facility] Chloride 99 96 - 110 mEq/L 05/03/2017 6:56 [facility] CO2 26 22 - 32 mEq/L 05/03/2017 6:56 [facility] Blood specimen (specimen) BLOOD SPECIMEN / Unknown 05/03/2017 5:42 EST 05/03/2017 6:20 EST Houston Corey MD CHEMISTRY & BLOO D GAS ORDERABLES [facility] [address] [place] [address] * (ABNORMAL) HEMAGRAM (05/03/2017 5:42 EST) WBC 7.95 4.0 - 10.4 K/cmm 05/03/2017 6:46 [facility] RBC 3.97(L) 4.36 - 5.78 M/cmm 05/03/2017 6:46 [facility] Hemoglobin 13.3(L) 13.8 - 17.3 gm/dl 05/03/2017 6:46 [facility] HCT 38.4(L) 39.5 - 50.2 % 05/03/2017 6:46 [facility] MCV 97(H) 81 - 95 fl 05/03/2017 6:46 [facility] MCH 33.5(H) 27.6 - 33.0 pg 05/03/2017 6:46 [facility] MCHC 34.6 32.8 - 36.4 gm/dl 05/03/2017 6:46 [facility] RDW-CV 11.9 <14.2 % 05/03/2017 6:46 [facility] RDW-SD 42.4 <46.0 fl 05/03/2017 6:46 [facility] PLT 196 141 - 377 K/cmm 05/03/2017 6:46 [facility] MPV 12.6 9.5 - 12.7 fl 05/03/2017 6:46 [facility] Blood specimen (specimen) BLOOD SPECIMEN / Unknown 05/03/2017 5:42 EST 05/03/2017 6:20 EST Houston Corey MD HEMATOLOGY & PF4 ORDERABLES [facility] [address] [place] [address] * EKG 12-LEAD (05/03/2017 4:23 EST) 05/03/2017 4:23 EST Narrative [facility] EKG - 05/09/2017 13:47 EST ? [facility] ? Test Date: ?2017-05-03 Pat Name: ? DAVID FARFAN ?Department: ?? [facility] [address] ? Room: ? MW514 Gender: ? M ?Manager Green: ?? [id number] : ?1950 ? Requested By: MARIO ALBERTO SCANLON Order Number: [id number] ? Martha OAKES: ?? SENG PERSON SA, MD ? Measurements Intervals ?[place] ? Rate: ? 75 ? P: ?51 GA: ? 172 ?QRS: ?-77 QRSD: ? 172 [...] Seng Brody Sa, MD - 05/09/2017 [facility] Test Date: 2017-05-03 Pat Name: DAVID FARFAN Department: JAME Chao Room: [facility] Gender: M Manager Green: [id number] : 1950 Requested By: MARIO ALBERTO SCANLON Order Number: [id number] Reading MD: SENG ROBLEDO Measurements Intervals [place] Rate: 75 P: 51 GA: 172 QRS: -77 QRSD: 172 T: 92 [...] Joesph Louie MD CARDIAC ECG ORDERABL ES [facility] EKG * ECG REPORT - SCANNED (05/02/2017 11:16 EST) 05/02/2017 11:1 6 EST Scan 2 Vault Cashier PROCEDURE/MINOR VELMA GICAL ORDERABLES * PORTABLE CHEST [...] 10:10 EST) 05/02/2017 10:1 0 EST Narrative [facility] EKG - 05/08/2017 8:22 EST ? [facility] ? Test Date: ?2017-05-02 Pat Name: ? DAVID FARFAN ?Department: ?? [facility] [address] ? Room: ? MW514 Gender: ? M ?Manager Green: ?? [id number] : ?1950 ? Requested By: SHAKIRA Martinez Order Number: [id number] ? Martha OAKES: ?? LALY BARBER MD ? Measurements Intervals ?[place] ? Rate: ? 63 ? P: ?40 GA: ? 170 ?QRS: ?-72 QRSD: ? 180 ?T: ?86 QT: ? 492 ? QTc: ?504 ? Interpretive Statements DUAL CHAMBER PACER ELECTRONIC VENTRICULAR PACEMAKER I reviewed the tracing and have either agreed or edited the findings in this report. Electronically Signed On 05-08-17 08:22:30 EST by LALY BARBER MD. Procedure Note Laly Barber MD - 05/08/2017 [facility] Test Date: 2017-05-02 Pat Name: DAVID FARFAN Department: [place] [address] Room: [facility] Gender: M Manager Green: [id number] : 1950 Requested By: SHAKIRA Martinez Order Number: [id number] Martha MD: LALY BARBER MD Measurements Intervals [place] Rate: 63 P: 40 GA: 170 QRS: -72 QRSD: 180 T: 86 QT: 492 QTc: 504 Interpretive Statements DUAL CHAMBER PACER ELECTRONIC VENTRICULAR PACEMAKER I reviewed the tracing and have either agreed or edited the findings inthis report. Electronically Signed On 05-08-17 08:22:30 EST by LALY YAO. Tony Rosenberg MD CARDIAC ECG O RDERABLES [facility] EKG * PERMANENT PACEMAKER PROCEDURE (05/02/2017 10:00 EST) Anatomical Region Laterality Modality Other 05/02/2017 10:0 0 EST Narrative 05/02/2017 11:24 EST *Cardiology* [address] [place] [address] Device Implantation Patient: David Farfan ? Study Date: ?05/02/2017 ? Accession #: ? [id number] : ? 1950 Referring: Attending: Tony Rosenberg [...] HARDWARE: Implanted device: Clifford Appiah Serial number: [id number]. LEAD PARAMETERS + + + + Lead # ? 1 ? 2 ? + + + + Chamber ? RA ? RV ? + + + + Date implanted ?? 05/02/2017 ? 05/02/2017 ? + + + + Model information [employer] ? [employer] Ingevity ? ingevity mr ? MRI ? + + + + Serial number ? [id number] ? [id number] ? + + + + Location ? [...] Note Tony Rosenberg MD - 05/02/2017 *Cardiology* [address] [place] [address] Device Implantation Patient: David Farfan Study Date: [...] device: Clifford ESTEVEZ DR - Serial number: [id number]. LEAD PARAMETERS + + + + Lead # 1 2 + + + + Chamber RA RV + + + + Date implanted 05/02/2017 05/02/2017 + + + + Model information 1Rebel Mathew hood mr MRI + + + + Serial number [id number] + + + + Location RA appendage [...] 0.68 0.66 - 1.25 mg/dl 05/02/2017 7:26 [facility] GFR, Calculated 100 >60 ml/min/1.7 3m2 05/02/2017 7:26 [facility] Comment: eGFR calculated using CKD-EPI equation for non Americans. Multiply eGFR by 1.16 for Americans. Blood specimen (specimen) BLOOD SPECIMEN / Unknown 05/02/2017 6:11 EST 05/02/2017 6:47 EST Houston Corey MD CHEMISTRY & BLOO D GAS ORDERABLES [facility] [address] [place] [address] * BUN (05/02/2017 6:11 EST) BUN 10 10 - 26 mg/dl 05/02/2017 7:26 [facility] Blood specimen (specimen) BLOOD SPECIMEN / Unknown 05/02/2017 6:11 EST 05/02/2017 6:47 EST Houston Corey MD CHEMISTRY & BLOO D GAS ORDERABLES Performing Organization Address [facility] Co de Phone Number [facility] [facility] [address] [place] [address] * (ABNORMAL) ELECTROLYTES (05/02/2017 6:11 EST) Sodium 135(L) 136 - 145 mEq/L 05/02/2017 7:26 [facility] Potassium 4.4 3.5 - 5.0 mEq/L 05/02/2017 7:26 [facility] Chloride 102 96 - 110 mEq/L 05/02/2017 7:26 [facility] CO2 23 22 - 32 mEq/L 05/02/2017 7:26 [facility] Blood specimen (specimen) BLOOD SPECIMEN / Unknown 05/02/2017 6:11 EST 05/02/2017 6:47 EST Houston Corey MD CHEMISTRY & BLOO D GAS ORDERABLES Performing Organization Address [facility]/ZIP Co de Phone Number [facility] [address] [place] [address] * (ABNORMAL) HEMAGRAM (05/02/2017 6:11 EST) WBC 6.92 4.0 - 10.4 K/cmm 05/02/2017 6:59 [facility] RBC 3.67(L) 4.36 - 5.78 M/cmm 05/02/2017 6:59 [facility] Hemoglobin 12.3(L) 13.8 - 17.3 gm/dl 05/02/2017 6:59 [facility] HCT 35.2(L) 39.5 - 50.2 % 05/02/2017 6:59 [facility] MCV 96(H) 81 - 95 fl 05/02/2017 6:59 [facility] MCH 33.5(H) 27.6 - 33.0 pg 05/02/2017 6:59 EST [facility] MCHC 34.9 32.8 - 36.4 gm/dl 05/02/2017 6:59 EST [facility] RDW-CV 11.9 <14.2 % 05/02/2017 6:59 [facility] RDW-SD 41.1 <46.0 fl 05/02/2017 6:59 EST [facility] PLT 185 141 - 377 K/cmm 05/02/2017 6:59 [facility] MPV 12.9(H) 9.5 - 12.7 fl 05/02/2017 6:59 EST [facility] Blood specimen (specimen) BLOOD SPECIMEN / Unknown 05/02/2017 6:11 EST 05/02/2017 6:47 EST Houston Corey MD HEMATOLOGY & PF4 ORDERABLES Performing Organization Address City/[facility] Co de Phone Number [facility] [address] [place] [address] * (ABNORMAL) TROPONIN I (05/01/2017 7:52 EST) Troponin I (ng/mL) 0.035(H) <0.034 ng/ml 05/01/2017 9:10 EST [facility] Blood specimen (specimen) BLOOD SPECIMEN / Unknown 05/01/2017 7:52 EST 05/01/2017 8:19 EST Amelia Partida DO CHEMISTRY & BLOOD GAS ORDERABLES Performing Organization Address City/[facility]/ZIP Co de Phone Number [facility] [address] [place] [address] * MAGNESIUM (05/01/2017 6:01 EST) Magnesium 2.1 1.7 - 2.8 mg/dl 05/01/2017 6:46 EST [facility] Blood specimen (specimen) BLOOD SPECIMEN / Unknown 05/01/2017 6:01 EST 05/01/2017 6:15 EST Amelia Partida DO CHEMISTRY & BLOOD GAS ORDERABLES Performing Organization Address [facility] Co de Phone Number [facility] [address] [place] [address] * CREATININE (05/01/2017 6:01 EST) Creatinine 0.67 0.66 - 1.25 mg/dl 05/01/2017 6:46 [facility] GFR, Calculated 100 >60 ml/min/1.7 3m2 05/01/2017 6:46 [facility] Comment: eGFR calculated using CKD-EPI equation for non Americans. Multiply eGFR by 1.16 for Americans. Blood specimen (specimen) BLOOD SPECIMEN / Unknown 05/01/2017 6:01 EST 05/01/2017 6:15 EST Houston Corey MD CHEMISTRY & BLOO D GAS ORDERABLES Performing Organization Address [facility] Co de Phone Number [facility] [address] [place] [address] * (ABNORMAL) BUN (05/01/2017 6:01 EST) BUN 6(L) 10 - 26 mg/dl 05/01/2017 6:46 [facility] Blood specimen (specimen) BLOOD SPECIMEN / Unknown 05/01/2017 6:01 EST 05/01/2017 6:15 EST Houston Corey MD CHEMISTRY & BLOO D GAS ORDERABLES Performing Organization Address [facility] Co de Phone Number [facility] [address] [place] [address] * (ABNORMAL) ELECTROLYTES (05/01/2017 6:01 EST) Sodium 134(L) 136 - 145 mEq/L 05/01/2017 6:46 [facility] Potassium 4.5 3.5 - 5.0 mEq/L 05/01/2017 6:46 [facility] Chloride 101 96 - 110 mEq/L 05/01/2017 6:46 [facility] CO2 23 22 - 32 mEq/L 05/01/2017 6:46 [facility] Blood specimen (specimen) BLOOD SPECIMEN / Unknown 05/01/2017 6:01 EST 05/01/2017 6:15 EST Houston Corey MD CHEMISTRY & BLOO D GAS ORDERABLES [facility] [address] [place] [address] * (ABNORMAL) HEMAGRAM (05/01/2017 6:01 EST) WBC 7.09 4.0 - 10.4 K/cmm 05/01/2017 6:27 [facility] RBC 3.76(L) 4.36 - 5.78 M/cmm 05/01/2017 6:27 [facility] Hemoglobin 12.7(L) 13.8 - 17.3 gm/dl 05/01/2017 6:27 [facility] HCT 36.4(L) 39.5 - 50.2 % 05/01/2017 6:27 [facility] MCV 97(H) 81 - 95 fl 05/01/2017 6:27 [facility] MCH 33.8(H) 27.6 - 33.0 pg 05/01/2017 6:27 [facility] MCHC 34.9 32.8 - 36.4 gm/dl 05/01/2017 6:27 [facility] RDW-CV 11.9 <14.2 % 05/01/2017 6:27 [facility] RDW-SD 42.1 <46.0 fl 05/01/2017 6:27 [facility] PLT 205 141 - 377 K/cmm 05/01/2017 6:27 [facility] MPV 12.8(H) 9.5 - 12.7 fl 05/01/2017 6:27 [facility] Blood specimen (specimen) BLOOD SPECIMEN / Unknown 05/01/2017 6:01 EST 05/01/2017 6:15 EST Houston Corey MD HEMATOLOGY & PF4 ORDERABLES Performing Organization Address [facility] Co de Phone Number [facility] [address] [place] [address] * LIPID PROFILE (INCLUDES CHOLESTEROL, TRIGLYCERIDES, HDL, LDL) (05/01/2017 6:01 EST) Cholesterol 148 mg/dl 05/01/2017 6:46 [facility] Comment: Desirable:<200 Borderline High:200-239 High:>ga=519 Triglycerides 65 mg/dl 05/01/2017 6:46 [facility] Comment: Normal:<150 Borderline High:150-199 High:200-499 Very High:>qr=793 HDL 39 mg/dl 05/01/2017 6:46 [facility] Comment: Low:<40 Normal:40-60 Desirable: >60 LDL, Calculated 96 mg/dl 8 6:46 [facility] Comment: Optimal:<100 Near Optimal:100-129 Borderline High:130-159 High:160-189 Very High:>vv=624 Chol/HDL Ratio 3.8 05/01/2017 6:46 [facility] Fasting? Unknown 05/01/2017 6:46 [facility] Non HDL Cholesterol 109 mg/dl 05/01/2017 6:46 [facility] Comment: Desirable:<130 Borderline:130-159 High: 160-189 Very High: >ve=490 Blood specimen (specimen) BLOOD SPECIMEN / Unknown 05/01/2017 6:01 EST 05/01/2017 6:15 EST Houston Corey MD CHEMISTRY & BLOO D GAS ORDERABLES Performing Organization Address City/[facility]/ZIP Co de Phone Number [facility] [address] [place] [address] * (ABNORMAL) TROPONIN I (05/01/2017 0:20 EST) Troponin I (ng/mL) 0.055(H) <0.034 ng/ml 05/01/2017 1:01 [facility] Blood specimen (specimen) BLOOD SPECIMEN / Unknown 05/01/2017 0:20 EST 05/01/2017 0:24 EST Amelia Partida DO CHEMISTRY & BLOOD GAS ORDERABLES Performing Organization Address [facility] Co de Phone Number [facility] [address] [place] [address] * HEMOGLOBIN A1C (05/01/2017 0:20 EST) Hemoglobin A1C 5.7 % 05/01/2017 10:05 [facility] Comment: Reference Range: <5.7% Normal 5.7-6.4% Prediabetes =>6.5% Diagnostic for diabetes (if confirmed) Goals for glycemic control in diabetes ADA 2017 For non adults with diabetes: ?? Target <7.5% For children and adolescents with type 1 diabetes: ?? Target <7.0% More or less stringent targets may be appropriate for individual patients. Est Avg Glucose 117 mg/dl 8 10:05 [facility] Comment: eAG represents the A1c result expressed as average glucose in mg/dl. Blood specimen (specimen) BLOOD SPECIMEN / Unknown 05/01/2017 0:20 EST 05/01/2017 0:24 EST Houston Corey MD CHEMISTRY & BLOO D GAS ORDERABLES Performing Organization Address [facility] Co de Phone Number [facility] [address] [place] [address] * (ABNORMAL) PROTIME (04/30/2017 19:33 EST) Pro Time 15.1(H) 10.3 - 13.4 secs 04/30/2017 20:08 [facility] Comment:NOTE NEW REFERENCE Vern FUNG OF APR 03 2017 I.N.R. 1.3(H) 0.9 - 1.1 Ratio 04/30/2017 20:08 [facility] Comment: Moderate Intensity Coumadin INR = 2.0-3.0 Adjustments in anticoagulant therapy dose should be based upon the INR and NOT the Pro Time. Blood specimen (specimen) BLOOD SPECIMEN / Unknown 04/30/2017 19:33 EST 04/30/2017 19:47 EST Houston Corey MD HEMATOLOGY & PF4 ORDERABLES Performing Organization Address City/[facility]/ZIP Co de Phone Number [facility] [address] [place] [address] * ED/URGENT CARE ADD-ON (04/30/2017 18:20 EST) Tests to be added LYME AB, 04/30/2017 18:16 EST [facility] Comment:TSH Number for problems [id number] (ED) 04/30/2017 18:16 EST [facility] TOPOGRAPHY UNKNOWN / Unknown 04/30/2017 18:20 EST 04/30/2017 18:23 EST Amelia Partida DO HEMATOLOGY & PF4 ORDERABLES Performing Organization Address City/[facility] Co de Phone Number [facility] [address] [place] [address] * OUTSIDE IMAGES ??? ECHO IMAGES (04/30/2017 17:24 EST) Anatomical Region Laterality Modality Other 04/30/2017 17:2 4 EST Narrative 04/30/2017 17:24 EST This is an outside study - there is no report. Procedure Note BREEDER HEN SERVICE TECHNICIAN, IMAGING - 04/30/2017 This is an outside study - there is no report. Provider Unknown IMG OTHER IMAGING OR DERABLES * EKG 12-LEAD (04/30/2017 16:43 EST) 04/30/2017 16:4 3 EST Narrative [facility] EKG - 05/02/2017 11:12 EST ?[facility] Emergency ? Test Date: ?2017-04-30 Pat Name: ? DAVID FARFAN ?Department: ?? ED ? Room: ? AC12 Gender: ? M ?Manager Green: ?? [id number] : ?1950 ? Requested By: DONNA HOOK L Order Number: [id number] ? Reading MD: ?? ANA LOBEL MD ? Measurements Intervals ?[place] ? Rate: ? 33 ? P: ? GA: ? 0 ?QRS: ?15 QRSD: ? 110 [...] Note Ana Marsh MD - 05/02/2017 [facility] Emergency Test Date: 2017-04-30 Pat Name: DAVID FARFAN Department: ED Room: [facility] Gender: M Manager Green: [id number] : 1950 Requested By: DONNA Cabral Order Number: [id number] Reading MD: ANA MARSH MD Measurements Intervals [place] Rate: 33 P: GA: 0 QRS: 15 QRSD: 110 T: 42 [...] Bridget Fields MD CARDIAC ECG ORDERAB LES [facility] EKG * TSH (04/30/2017 16:40 EST) TSH 1.34 0.47 - 4.68 uIU/ml 04/30/2017 19:24 [facility] BLOOD SPECIMEN / Unknown 04/30/2017 16:40 EST 04/30/2017 16:52 EST Bridget Fields MD CHEMISTRY & BLOOD G ORDERABLES [facility] [address] [place] [address] * LYME AB (04/30/2017 16:40 EST) Lyme AB Negative 05/01/2017 11:39 [facility] Comment:Reference Range: Neg ative BLOOD SPECIMEN / Unknown 04/30/2017 16:40 EST 04/30/2017 16:52 EST Bridget Fields MD IMMUNOLOGY AND SERO LOGY ORDERABLES Performing Organization Address [facility] Co de Phone Number [facility] [address] [place] [address] * (ABNORMAL) PROFILE ED CARDIAC PACK (04/30/2017 16:40 EST) Sodium 134(L) 136 - 145 mEq/L 04/30/2017 17:16 [facility] Potassium 4.2 3.5 - 5.0 mEq/L 04/30/2017 17:16 [facility] Chloride 105 96 - 110 mEq/L 04/30/2017 17:16 [facility] CO2 20(L) 22 - 32 mEq/L 04/30/2017 17:16 [facility] BUN 6(L) 10 - 26 mg/dl 04/30/2017 17:16 [facility] Creatinine 0.61(L) 0.66 - 1.25 mg/dl 04/30/2017 17:16 [facility] GFR, Calculated 104 >60 ml/min/1 .73m2 04/30/2017 17:16 [facility] Comment: eGFR calculated using CKD-EPI equation for non Americans. Multiply eGFR by 1.16 for Americans. Magnesium 1.7 1.7 - 2.8 mg/dl 04/30/2017 17:16 [facility] WBC 7.78 4.0 - 10.4 K/cmm 04/30/2017 17:12 [facility] RBC 3.72(L) 4.36 - 5.78 M/cmm 04/30/2017 17:12 [facility] Hemoglobin 12.6(L) 13.8 - 17.3 gm/dl 04/30/2017 17:12 [facility] HCT 35.7(L) 39.5 - 50.2 % 04/30/2017 17:12 [facility] MCV 96(H) 81 - 95 fl 04/30/2017 17:12 [facility] MCH 33.9(H) 27.6 - 33.0 pg 04/30/2017 17:12 [facility] MCHC 35.3 32.8 - 36.4 gm/dl 04/30/2017 17:12 [facility] RDW-CV 11.9 <14.2 % 04/30/2017 17:12 [facility] RDW-SD 41.5 <46.0 fl 04/30/2017 17:12 [facility] PLT 197 141 - 377 K/cmm 04/30/2017 17:12 [facility] MPV 12.5 9.5 - 12.7 fl 04/30/2017 17:12 [facility] % Neutrophils 62.1 % 04/30/2017 17:12 [facility] % Lymphocytes 23.9 % 04/30/2017 17:12 [facility] % Monocytes 11.6 % 04/30/2017 17:12 [facility] % Eosinophils 1.2 % 04/30/2017 17:12 [facility] % Basophils 0.9 % 04/30/2017 17:12 [facility] % Immature Grans 0.3 % 04/30/2017 17:12 [facility] ABS Neutrophils 4.84 2.20 - 8.85 K/cmm 04/30/2017 17:12 [facility] ABS Lymphs 1.86 1.09 - 3.30 K/cmm 04/30/2017 17:12 [facility] ABS Monocytes 0.90(H) 0.1 - 0.8 K/cmm 04/30/2017 17:12 [facility] ABS Eosinophils 0.09 0.03 - 0.61 K/cm 04/30/2017 17:12 [facility] ABS Basophils 0.07 0.01 - 0.11 K/cm 04/30/2017 17:12 [facility] ABS Immature Grans 0.02 0 - 0.06 K/cm 04/30/2017 17:12 [facility] Type of Diff: Automated 04/30/2017 17:12 [facility] Troponin I (ng/mL) 0.040(H) <0.034 ng/ml 04/30/2017 17:29 [facility] Glucose, Screening 100 70 - 100 mg/dl 04/30/2017 17:16 [facility] Hold Blue Top Sample for coagulation will be discarded after 4 hours 04/30/2017 17:04 [facility] Blood specimen (specimen) BLOOD SPECIMEN / Unknown 04/30/2017 16:40 EST 04/30/2017 16:52 EST Bridget Fields MD PACKAGES & DNA PROB E ORDERABLES Performing Organization Address City/State/[facility] Co de Phone Number [facility] [address] [place] [address] documented in this encounter Visit Diagnoses Diagnosis [...] 04/201705/01/2017 documented in this encounter Care Teams Ic Design Manager Relationship Specialty Start Date End Date None, Provider PCP - General 04/30/17 05/01/17 Katia Stone, PABijalC [address] [place] [id number] PCP - General 05/02/17 documented as of this encounter
--- OUTSIDE RECORDS SUMMARY | 2023-12-22 18:17 | XMS_ITS | Encounter Summary ---
Author Organization [facility] [place] [address] Care Team Providers Care Firewall Security Engineer Name Role Phone Katia Stone Primary Care Provider [phone] Reason for Referral * Diagnostic Test (Routine) - Closed Specialty Diagnoses / Procedures Referred By Contac t Referred To Contact Radiology Diagnoses Abdominal visceral abscess Procedures CT Guided Drain Peritoneal Virginia Price [address] [place] [address] [facility] [place] [address] Referral ID Status Reason Start Date Expiration Date V isits Requested Visits Authorized [id number] Closed Specialty Service Requested 07/09/2021 01/09/2023 1 1 Reason for Visit * Diagnostic Test (Routine) - Closed Specialty Diagnoses / Procedures Referred By Contac t Referred To Contact Radiology Diagnoses Abdominal visceral abscess Procedures CT Guided Drain Peritoneal Virginia Price [address] [place] [address] [facility] [place] [address] Referral ID Status Reason Start Date Expiration Date V isits Requested Visits Authorized [id number] Closed Specialty Service Requested 07/09/2021 01/09/2023 1 1 Encounter Details Date Type Department Care Team (Latest Contact Info) Description 07/10/2021 9:19 AM EDT - 07/10/2021 11:59 PM EDT Hospital [place] [address] Virginia Price, DO [address] [place] [address] Abdominal visceral abscess (Primary Dx) Discharge Disposition: [...] is during regular office hours, please call [phone]. If it is after regular office hours, or on weekends or holidays, please call [phone] and ask to speak to the [employer] Supervisor train electronic technician for Interventional Radiology. XX You have received [...] of : 1950 AGE: 70 y.o. Address: [place] [address] (home) Mobile: No relevant phone numbers on file. Referring Provider: Virginia Price REASON FOR VISIT: Order Questions Answers Where will study be performed? [facility] Radiology [120] Is the patient on [...] Questions Answers Where will study be performed? [facility] Radiology [120] Is the patient on [...] Questions Answers Where will study be performed? [facility] Radiology [120] Is the patient on [...] culture Complications: No immediate Plan/Disposition: Return to [facility] GB fossa drain to bulb suction Left [...] AM EST Hospital Encounter Non[place] [phone] Arrived documented as of this encounter Procedures [...] EDT 1. ??Percutaneous placement of a 10 Wallisian drainage catheter into gallbladder fossa abscess/biloma, yielding 120 mL of cloudy brown fluid. 2. ??Left-sided 10 Wallisian chest tube placement, yielding 30 mL of cloudy brown. Plan: 1. ??To IR recovery then transfer back to [facility]. 2. ??Awaiting return call from requesting provider [...] who have questions please contact the health resident care associate that requested your imaging first. ? [...] IMPRESSION 1. Percutaneous placement of a 10 Wallisian drainage catheter intogallbladder fossa abscess/biloma, yielding 120 mL of cloudy brown fluid. 2. Left-sided 10 Wallisian chest tube placement, yielding 30 mL of cloudybrown. Plan: 1. To IR recovery then transfer back to [facility]. 2. Awaiting return call from requesting provider [...] patients who have questions please contactthe health resident care associate that requested your imaging first. Virginia Price DO IMG CT ORDERABLES * CT Guided Drain Chest Tube/Pleural Drain (07/10/2021 12:19 PM EDT) Anatomical Region Laterality Modality Computed Tomogra phy Impressions 07/11/2021 10:21 AM EDT 1. ??Percutaneous placement of a 10 Wallisian drainage catheter into gallbladder fossa abscess/biloma, yielding 120 mL of cloudy brown fluid. 2. ??Left-sided 10 Wallisian chest tube placement, yielding 30 mL of cloudy brown. Plan: 1. ??To IR recovery then transfer back to [facility]. 2. ??Awaiting return call from requesting provider [...] who have questions please contact the health resident care associate that requested your imaging first. ? [...] IMPRESSION 1. Percutaneous placement of a 10 Wallisian drainage catheter intogallbladder fossa abscess/biloma, yielding 120 mL of cloudy brown fluid. 2. Left-sided 10 Wallisian chest tube placement, yielding 30 mL of cloudybrown. Plan: 1. To recovery then transfer back to [facility]. 2. Awaiting return call from requesting provider [...] patients who have questions please contactthe health resident care associate that requested your imaging first. Virginia Price DO IMG CT ORDERABLES * Anaerobic Culture (07/10/2021 11:45 AM EDT) Anaerobic Culture No anaerobic organisms isolated [facility] Fluid 07/10/2021 11:4 5 AM EDT 07/10/2021 12:24 PM EDT Comment:Left chest tube plac ement. Narrative Resulting Agency Comment Spec In Lab Vick Boss MD MICROBIOLOGY - GEN ERAL ORDERABLES Performing Organization Address City/[facility]/ZIP Co de Phone Number [facility] [place] [address] * Body Fluid Culture, Aerobic (07/10/2021 11:45 AM EDT) Body Fluid Culture No growth [facility] Gram Stain Cytocentrifuge Gram Stain performed No Neutrophils seen. No microorganisms seen. [facility] Fluid 07/10/2021 11:4 5 AM EDT 07/10/2021 12:24 PM EDT Comment:Left chest tube plac ement. Narrative Resulting Agency Comment Spec In Lab Vick Boss MD MICROBIOLOGY - GEN ERAL ORDERABLES Performing Organization Address City/[facility]/ZIP Co de Phone Number [facility] [place] [address] * Anaerobic Culture (07/10/2021 11:20 AM EDT) Anaerobic Culture No anaerobic organisms isolated [facility] Abdominal Fluid 07/10/2021 1 1:20 AM EDT 07/10/2021 12:25 PM EDT Comment:70 y.o. male with le ukocytosis and collection on CT following cholecystectomy presenting to Interventional Radiology for drainage Narrative Resulting Agency Comment Spec In Lab Vick Boss MD MICROBIOLOGY - GEN ERAL ORDERABLES [facility] [place] [address] * (ABNORMAL) Body Fluid Culture, Aerobic (07/10/2021 11:20 AM EDT) Body Fluid Culture Few Escherichia coli(A) [facility] Gram Stain Cytocentrifuge Gram Stain performed Neutrophils seen Few Gram Negative Rods (A) [facility] Organism Escherichia coli(A) [facility] Abdominal Fluid 07/10/2021 1 1:20 [...] Boss MD MICROBIOLOGY - GEN ERAL ORDERABLES [facility] [place] [address] documented in this encounter Visit Diagnoses Diagnosis [...] mg documented in this encounter Care Teams Firewall Security Engineer Relationship Specialty Start Date End Date Katia Stone PA [address] [place] [id number] PCP - General General Internal Medicine 11/10/18 documented as of this encounter
--- OUTSIDE RECORDS SUMMARY | 2023-12-22 18:17 | XMS_ITS | Encounter Summary ---
Author Organization [facility] Address [facility] [place] [address] Care Team Providers Care Beef Pluck Trimmer Name Role Phone Katia Stone Primary Care Provider [phone] Encounter Details Date Type Department Care Team (Latest Contact Info) Description 06/26/2021 3:30 PM EDT Ancillary Procedure Radiology Library at [facility] [place] [address] Mykel Stern [facility] [place] [address] Gallbladder abscess Social History Tobacco Use Types [...] PRE-PROCEDURE NOTE: PCP: GIRISH Johnson Referring Provider: [facility] General Surgery: Virginia Price DO [...] History was communicated by Dr. Price from [facility]. They are requesting a gallbladder [...] and left basilar pleural collection presenting to [facility] for ct guided abdominal and left pleural drian placement. Plan: Planned procedure: CT guided RUQ abdominal drain and left chest tube placement Labs to be performed day of procedure: Hemogram; INR; Coags (need to be faxed from [facility]) Sedation: Moderate (Conscious sedation) Prophylactic [...] AM EST Hospital Encounter Non-Invasive [place] [address] Arrived documented as of this encounter Procedures Procedure Name Priority Date/Time Associated Diagnosis Comments FILM LIBRARY STORAGE ONLY CT ABDOMEN AND PELVIS Routine 06/26/2021 3:25 PM EDT documented in this encounter Results * Film Library- Storage Only CT Abdomen & Pelvis (06/26/2021 3:25 PM EDT) Narrative [facility] - 06/26/2021 3:25 PM EDT This exam is auto-finalizing. It's purpose is for storage only. Mykel Stern DO IMShaun FILM LIBRARY ORD ERABLES Performing Organization Address City/State/[facility] Co de Phone Number [place], [place] documented in this encounter Visit Diagnoses Diagnosis Gallbladder abscess Acute cholecystitis documented in this encounter Care Teams Beef Pluck Trimmer Relationship Specialty Start Date End Date Katia Stone PA [facility] [address] [place] [address] PCP - General General Internal Medicine 11/10/18 documented as of this encounter
--- OUTSIDE RECORDS SUMMARY | 2023-12-22 18:17 | XMS_ITS | Encounter Summary ---
Author Organization [facility] Address [facility] [place] [address] Care Team Providers Care Geodetic Surveyor Name Role Phone Katia Stone Primary Care Provider [phone] Encounter Details Date Type Department Care Team (Late st Contact Info) Description 07/09/2021 1:35 PM EDT Ancillary Procedure Radiology Library at [facility] [place] [phone] Nolan Beth MD [facility] GENERAL [place] [address] Social History Tobacco Use Types Packs/Day Years [...] AM EST Hospital Encounter Non-Invasive [place] [phone] Arrived documented as of this encounter Procedures [...] MD IMG FILM LIBRARY OR DERABLES [facility] [place], [place] documented in this encounter Visit Diagnoses Not on filedocumented in this encounter Care Teams Geodetic Surveyor Relationship Specialty Start Date End Date Katia Stone PA [address] [place] [phone] PCP - General General Internal Medicine 11/10/18 documented as of this encounter
--- OUTSIDE RECORDS SUMMARY | 2023-12-22 18:17 | XMS_ITS | Encounter Summary ---
[place] [address] Care Team Providers Care It Support Consultant Name Role Phone Katia Stone Primary Care Provider Encounter Details Date Type Department Care Team (Late st Contact Info) Description 11/25/2019 Telephone Cardiology at [address] [phone] Gayla Ochoa, RN Social History Tobacco Use [...] is requesting acceptance of a referral to [facility] Cardiology for Tim. States that Tim normally [...] AM EST Hospital Encounter Non-[place]vasive [place] [address] Arrived documented as of this encounter Visit Diagnoses Not on filedocumented in this encounter Care Teams It Support Consultant Relationship Specialty Start Date End Date Katia Stone PA [address] [place] [address] PCP - General General Internal Medicine 11/10/18 documented as of this encounter
[2023-12-22 20:00] LABS: Abs Immature Grans 0.09 10^3/uL (0.0-0.06); Absolute Basophil Count 0.07 10^3/uL (0.0-0.2); Absolute Lymphocyte Count 1.98 10^3/uL (1.2-3.4); Basophils % 0.5 %; Eosinophils % 1.7 %; HCT 39.2 % (40.0-50.0); HGB 13.1 g/dL (13.5-17.5); Immature Grans % 0.7 %; MCH 33.2 pg (27.0-33.0); MCHC 33.4 % (32.0-36.0); MCV 100 fL (80-95); MPV 12.2 fL (8.0-11.0); Monocytes % 9.1 %; Platelet Count 244 10^3/uL (130-400); RBC 3.94 10^6/uL (4.36-5.78); RDW-SD 44.2 fL; WBC 13.18 10^3/uL (4.4-10.8)
[2023-12-22 20:12] LABS: Absolute Eosinophil Count 0.22 10^3/uL (0.0-0.7); Absolute Neutrophil Count 9.62 10^3/uL (1.2-6.7)
[2023-12-22 21:31] LABS: ALT 28 U/L (16-63); AST 25 U/L (15-37); Albumin 2.8 g/dL (3.4-5.0); Alkaline Phosphatase 90 U/L (46-116); Anion Gap 10.4 mmol/L (3-11); BUN 13 mg/dL (7-18); Bilirubin, Total 0.32 mg/dL (0.2-1.0); CO2 26.6 mmol/L (21.0-32.0); CREATININE 0.7 mg/dL (0.70-1.30); Calcium 8.6 mg/dL (8.5-10.1); Chloride 104 mmol/L (98-107); Estimated GFR 97.29 (mL/min/1.73m2); Glucose 119 mg/dL (74-106); NT-proBNP 877 pg/mL (<300); Sodium 141 mmol/L (136-145); Total Protein 7.1 g/dL (6.4-8.2)
[2023-12-22 21:34] LABS: Potassium 2.7 mmol/L (3.5-5.1)
[2023-12-22 22:59] LABS: Magnesium 1.5 mg/dL (1.8-2.4)
== END 2023-12-22 18:12 | disposition home or self-care (01) ==
LOC: LBN 18:11
PROVIDERS: PCP Legal Medicine; Visit Provider Nurse Practitioner Gerontology
DX: E83.42 Hypomagnesemia (principal); E87.1 Hypo-osmolality and hyponatremia; D64.9 Anemia, unspecified
CPT/HCPCS: 80053; 83735; 83880; 85025

== ENCOUNTER 2023-12-23 09:14 | Emergency (ER) | payer MEDICARE, MEDICAID, SELFPAY ==
--- NOTE | 2023-12-23 09:00 | RT.EKG_ITS ---
APPROVED REPORT Exam: Resting ECG Reason for Exam: coughing up blood Patient Location: E HR:64 bpm ECG Measurements Heart Rate 64 AXIS KS 201 P 7 QRSd 158 QRS -87 QT 483 T 117 QTc 497 Conclusion Ventricular-paced complexes...other complexes also detected LVH with secondary repolarization abnormality...multi-LVH criteria, abnrm ST-T Anterolateral infarct, age indeterminate...Q >35mS, flat/neg T, V3-V6,I,aVL
[2023-12-23 09:15] VITALS: BP 123/97; PULSE 65; RESP 20; TEMP 37.1; O2SAT 92
--- NOTE | 2023-12-23 09:27 | ED.GENADUL_ITS ---
Discharge Plan Disposition Patient Disposition: Home Condition: Stable Discharge Details Clinical Impression: Hemoptysis Primary Care Provider: Monalisa Dong ED Provider: Jayesh Marquez Meds and New Rx's Prescriptions: New doxycycline hyclate 100 mg tablet 100 mg PO BID Qty: 14 0RF Continued fentanyl 12 mcg/hr patch 72 hour 1 patch transdermal Q72H Patient Comments: not on med rec list from [facility] ibuprofen 200 mg tablet 200 mg PO BID PRN Dupixent Pen 300 mg/2 mL pen injector 300 mg subcut Q2W loratadine 10 mg tablet 10 mg PO DAILY benzonatate 100 mg capsule 100 mg PO BID albuterol sulfate 90 mcg/actuation aerosol powdr breath activated 2 inh inhalation TID Rx Instructions: *and* q4h PRN calcium carbonate 215 mg calcium (500 mg) tablet,chewable 1,000 mg PO Q6H PRN Patient Comments: not on med rec list from the [facility] fluticasone propionate 50 mcg/actuation spray,suspension 1 spray intranasal BID Rx Instructions: administer into each nostril Ultra B-100 Complex Tablet Extended Release 1 tab PO DAILY pantoprazole 40 mg tablet,delayed release (DR/EC) 40 mg PO DAILY polyethylene glycol 3350 [Miralax] 17 gram powder in packet 17 g PO DAILY PRN sennosides-docusate sodium [Senexon-S] 8.6-50 mg tablet 2 tab-cap PO DAILY sertraline 25 mg tablet 50 mg PO DAILY metoprolol succinate 200 mg tablet extended release 24 hr 200 mg PO DAILY Rx Instructions: Hold for HR < 60 memantine 5 mg tablet 5 mg PO BID Trelegy Ellipta 200-62.5-25 mcg blister with device 1 inh inhalation DAILY ipratropium-albuterol 0.5 mg-3 mg(2.5 mg base)/3 mL solution for nebulization 3 ml inhalation Q12H PRN PRN Zenpep 5,000-17,000- 24,000 unit capsule,delayed release(DR/EC) 1 cap PO TID melatonin 3 mg capsule 3 mg PO HS beer 1 unit PO 1XD PRN Rx Instructions: may have 2 beers by mouth daily 12 or 16oz,only 1 beer if 24oz container colestipol 1 gram tablet 2 g PO BID dextromethorphan-guaifenesin [Tussin DM] 10-100 mg/5 mL Liquid 10 ml PO Q4H PRN magnesium gluconate 500 mg Tablet 500 mg PO BID cholecalciferol (vitamin D3) [Vitamin D3] 125 mcg (5,000 unit) tablet 5,000 unit PO .weekly Patient Comments: not on med rec list from [facility] potassium chloride [K-Tab] 20 mEq tablet extended release 40 meq PO DAILY L.acidoph,saliva-B.bif-S.therm [Acidophilus Probiotic Blend] 175 mg capsule 1 cap PO BID docusate sodium [Colace] 100 mg capsule 200 mg PO DAILY furosemide [Lasix] 20 mg tablet 40 mg PO BID spironolactone 25 mg tablet 50 mg PO DAILY Qty: 0 0RF acetaminophen [Tylenol Extra Strength] 500 mg tablet 1,000 mg PO Q12H Qty: 0 0RF sodium chloride 1,000 mg tablet,soluble 1,000 mg PO DAILY aspirin [Children's Aspirin] 81 mg Tablet,Chewable 81 mg PO DAILY Qty: 30 0RF atorvastatin 40 mg Tablet 80 mg PO DAILY Qty: 60 0RF benzonatate 100 mg Capsule 100 mg PO BID PRN PRN (Reason: Cough) Qty: 60 0RF clopidogrel 75 mg Tablet 75 mg PO DAILY Qty: 18 0RF guaifenesin [Mucus Relief ER] 600 mg Tablet Extended Release 12hr 600 mg PO BID Qty: 60 0RF amoxicillin-pot clavulanate 875-125 mg tablet 1 tab PO Q12H Qty: 10 0RF Patient Comments: ends 12/23/23 Discharge Instructions Additional Instructions: Your CAT scan did not show any new findings and your lab work is at your baseline. If you are not improving within a week follow-up with your primary care provider If you feel more ill, have significant increased bleeding or significant worsening pain or difficulty breathing return to the emergency department for reevaluation HPI General Mode of arrival: ambulatory . Date/Time Provider Initiated Documentation: 12/23/23 09:18 . Limitations to Documentation: no limitations . Information obtained by: patient . History of Present Illness 73 year old M presents to the emergency department with the chief complaint of phlegm streaked with blood, described as mild, Patient started experiencing this hour(s) (2) and it has been now resolved. No relieving factors improve symptom(s), No exacerbating factors reported . Patient notes denies chest pain and fever/chills. Patient did receive the following treatments prior to arrival, none Related Data Home Medications ?Medication ?Instructions ?Recorded ?Confirmed albuterol sulfate 90 mcg/actuation 2 inh inhalation TID 03/29/21 12/23/23 breath activated powder inhaler calcium carbonate 1,000 mg PO Q6H PRN 03/29/21 12/15/23 fluticasone propionate 50 1 spray intranasal BID 03/29/21 12/23/23 mcg/actuation nasal spray,suspension pantoprazole 40 mg tablet,delayed 40 mg PO DAILY 03/29/21 12/23/23 release polyethylene glycol 3350 17 gram 17 g PO DAILY PRN 03/29/21 12/23/23 oral powder packet (Miralax) sennosides 8.6 mg-docusate sodium 2 tab-cap PO DAILY 03/29/21 12/23/23 50 mg tablet (Senexon-S) vitamin B complex (Ultra B-100 1 tab PO DAILY 03/29/21 12/23/23 Complex ER tablet,extended release) metoprolol succinate 200 mg 200 mg PO DAILY 05/02/21 12/23/23 tablet,extended release 24 hr melatonin 3 mg capsule 3 mg PO HS 05/10/21 12/23/23 beer 1 unit PO 1XD PRN 10/18/21 12/23/23 colestipol 1 gram tablet 2 g PO BID 12/06/21 12/23/23 fentanyl 12 mcg/hr transdermal 1 patch transdermal Q72H 04/29/22 12/15/23 patch dextromethorphan-guaifenesin 10 10 ml PO Q4H PRN 08/28/22 12/23/23 mg-100 mg/5 mL oral liquid (Tussin DM) magnesium gluconate 500 mg tablet 500 mg PO BID 08/28/22 12/23/23 benzonatate 100 mg capsule 100 mg PO BID 03/27/23 12/23/23 loratadine 10 mg tablet 10 mg PO DAILY 03/27/23 12/23/23 fluticasone fur. 200 mcg-umeclid 1 inh inhalation DAILY 06/18/23 12/23/23 62.5 mcg-vilant 25 mcg inhalat.powder (Trelegy Ellipta) ipratropium 0.5 mg-albuterol 3 mg 3 ml inhalation Q12H PRN PRN 06/18/23 12/23/23 (2.5 mg base)/3 mL nebulization soln lowrzt-oenbwxrn-nauzmtr 1 cap PO TID 06/18/23 12/23/23 5,000-17,000-24,000 unit capsule, delayed rel (Zenpep) memantine 5 mg tablet 5 mg PO BID 06/18/23 12/23/23 sertraline 25 mg tablet 50 mg PO DAILY 06/18/23 12/23/23 dupilumab 300 mg/2 mL subcutaneous 300 mg subcut Q2W 07/10/23 12/23/23 pen injector (Dupixent) ibuprofen 200 mg tablet 200 mg PO BID PRN 07/10/23 12/23/23 cholecalciferol (vitamin D3) 125 5,000 unit PO .weekly 08/11/23 12/15/23 mcg (5,000 unit) tablet (Vitamin D3) acetaminophen 500 mg tablet 1,000 mg (2 x 500 mg) PO Q12H #0 08/19/23 12/23/23 (Tylenol Extra Strength) tabs spironolactone 25 mg tablet 50 mg (2 x 25 mg) PO DAILY #0 tabs 08/19/23 12/23/23 sodium chloride 1,000 mg soluble 1,000 mg PO DAILY 12/15/23 12/23/23 tablet amoxicillin 875 mg-potassium 1 tab PO Q12H #10 tabs 12/18/23 12/23/23 clavulanate 125 mg tablet aspirin 81 mg chewable tablet 81 mg PO DAILY #30 tabs 12/18/23 12/23/23 (Children's Aspirin) atorvastatin 40 mg tablet 80 mg (2 x 40 mg) PO DAILY #60 tabs 12/18/23 12/23/23 benzonatate 100 mg capsule 100 mg PO BID PRN PRN Cough #60 12/18/23 12/23/23 caps clopidogrel 75 mg tablet 75 mg PO DAILY #18 tabs 12/18/23 12/23/23 guaifenesin 600 mg tablet, 600 mg PO BID #60 tabs 12/18/23 12/23/23 extended release 12 hr (Mucus Relief ER) L.acidophil,salivari-Bifido 1 cap PO BID 12/23/23 12/23/23 bifidum-Strep thermoph 175 mg capsule (Acidophilus Probiotic Blend) docusate sodium 100 mg capsule 200 mg PO DAILY 12/23/23 12/23/23 (Colace) doxycycline hyclate 100 mg tablet 100 mg PO BID #14 tabs 12/23/23 furosemide 20 mg tablet (Lasix) 40 mg PO BID 12/23/23 12/23/23 potassium chloride 20 mEq 40 meq PO DAILY 12/23/23 12/23/23 tablet,extended release (K-Tab) Previous Rx's ?Medication ?Instructions ?Recorded acetaminophen 500 mg tablet 1,000 mg (2 x 500 mg) PO Q12H #0 08/19/23 (Tylenol Extra Strength) tabs spironolactone 25 mg tablet 50 mg (2 x 25 mg) PO DAILY #0 tabs 08/19/23 amoxicillin 875 mg-potassium 1 tab PO Q12H #10 tabs 12/18/23 clavulanate 125 mg tablet aspirin 81 mg chewable tablet 81 mg PO DAILY #30 tabs 12/18/23 (Children's Aspirin) atorvastatin 40 mg tablet 80 mg (2 x 40 mg) PO DAILY #60 tabs 12/18/23 benzonatate 100 mg capsule 100 mg PO BID PRN PRN Cough #60 12/18/23 caps clopidogrel 75 mg tablet 75 mg PO DAILY #18 tabs 12/18/23 guaifenesin 600 mg tablet, 600 mg PO BID #60 tabs 12/18/23 extended release 12 hr (Mucus Relief ER) doxycycline hyclate 100 mg tablet 100 mg PO BID #14 tabs 12/23/23 Allergies Allergy/AdvReac Type Severity Reaction Status Date / Time No Known Allergies Allergy Verified 12/23/23 09:20 General Stated Complaint: SOB INDY: 3 Review of Systems All systems reviewed & are unremarkable except as noted in HPI and below Constitutional Constitutional: Denies chills, Denies fever(s) and Denies weakness Cardiovascular Cardiovascular: Denies chest pain and Reports dyspnea Respiratory Respiratory: Reports cough and Reports dyspnea Gastrointestinal Gastrointestinal: Denies abdominal pain, Denies nausea and Denies vomiting Neurologic Neurologic: Denies weakness Psychiatric Psychiatric: Denies depression Exam Const General: no acute distress Orientation: alert HENMT Head: normal to inspection Ears: external ears normal General nose exam: external nose normal Mouth: moist mucous membranes Eyes General: appearance normal, both eyes and all related structures Neck Neck: normal visual inspection Resp Effort & Inspection: normal respiratory effort and able to speak in complete sentences Auscultation: clear to auscultation bilaterally Cardio Jugular venous pressure: no JVD Rate: regular rate Heart Sounds: no murmurs Skin General skin exam: no rashes or lesions noted Neuro General: patient alert and patient oriented x3 Extrem General: normal to inspection Psych Mental Status: mental status grossly normal Course Vital Signs Vital signs: Vital Signs Temperature 37.1 C 12/23/23 09:15 Pulse 65 12/23/23 09:15 Respiratory Rate 20 12/23/23 09:15 Blood Pressure 123/97 H 12/23/23 09:15 Pulse Oximetry 92 12/23/23 09:15 Temperature 37.1 C 12/23/23 09:15 Temperature Source Oral 12/23/23 09:15 Pulse 65 12/23/23 09:15 Respiratory Rate 20 12/23/23 09:15 Blood Pressure 123/97 H 12/23/23 09:15 Blood Pressure Position Sitting 12/23/23 09:15 Pulse Oximetry 92 12/23/23 09:15 Oxygen Delivery Method Room Air 12/23/23 09:15 Oxygen Flow Rate 0 12/23/23 09:15 Lab/Test Results Lab/Test Results: 12/23/23 09:22 Blood Blood Culture - Pending 12/23/23 09:22 Blood Blood Culture - Pending Medical Decision Making 73-year-old male who had a recent admission for CVA, is on Augmentin for questionable pneumonia when he had an x-ray here, comes in with coughing up phlegm that has blood-streaked and it this morning. He has got shortness of naz ath but states has had this for months now and is not worse. No chest pain, no high fevers or chills. He is speaking in full sentences in no respiratory distress. He has clear lung sounds, no JVD, no leg swelling or calf tenderness. Given his complaints of continued cough with some blood in it I suspect he has bronchitis versus continued pneumonia, will check CBC, CMP, troponin and a CTA of the chest to evaluate for possible PE and also evaluate if he has a continued pneumonia. Labs show no significant changes to her baseline, CTA also shows no significant acute findings has chronic findings such as pleural thickening on the right and chronic loculated left lower sided effusion and aneurysmal dilation without dissection. Patient is hemodynamically stable and asymptomatic, has not had any recurrent hemoptysis. I did talk to the respiratory center at the [facility] name is Radha, he did voice that he did have several blood clots and does minimize complaints usually. She also notes that he has been having issues with shortness of breath especially with standing up. I asked him about this he says that he had some anterior chest pain which caused him to feel short of breath when he sat up. He has no pericardial effusion on CT, he says that when he lays back slightly that he does feel improved. He does have reproducible tenderness so I suspect this could be musculoskeletal back pain. His hemoglobin from yesterday is at his baseline so I doubt entities such as bleeding varices. Apparently he does drink alcohol when I ask him about this he says since having a stroke he is only had 1 beer but suspect that he could be drinking more. I did discuss with him that trying to decrease alcohol intake while on dual antiplatelet is recommended. I did a bedside u/s which did not show any asicties. He is hemodynamically stable, he does not want to be in the hospital and I do not have an acute reason to admit him at this time. He will f/u with his pcp and return precautions given. He is currently on Augmentin, given his cough some phlegm will also add doxycycline to have some atypical coverage. Differential Diagnosis Differential Diagnosis: Bronchitis, pneumonia, PE Medical Records Medical records reviewed: Yes I reviewed the patient's medical records. Imaging Data Radiologic Study: Attestation: I personally reviewed and interpreted this imaging study as follows: Imaging: CT Scan Radiologist's impression: Patient Name: Tim Mera Unit #: [id number] Loc: ER Ordering Provider: Jayesh Marquez M.D. Status: [facility] ER Primary Care Provider: Monalisa Dong Date of Exam: 12/23/23 Sex: M : 1950 Age: 73 Exam(s) a CT:CT chest PE CTA Exam(s) CT CHEST PE CTA EXAM: CT CHEST PE CTA CLINICAL HISTORY: dyspnea, hemoptysis. TECHNIQUE: Imaging Protocol: CT angiography of the chest was performed using pulmonary embolus protocol. Multi planar reconstructions were performed. CONTRAST MATERIAL: Intravenous: Omnipaque 350 Contrast volume: 100 cc COMPARISON: CT CT CHEST/ABD/PEL WO from 09/16/2022 CR,XR XR CHEST 2V PA LATERAL from 08/16/2023 FINDINGS: CHEST: PULMONARY ARTERIES: There are no intraluminal filling defects to suggest acute pulmonary emboli. LUNGS: Again noted is prominent circumferential calcified pleural plaque on the right side with mild increased right lung base markings.. On the left side there is again noted a moderate size unchanged loculated pleural effusion. Some scarring in the lateral left lung is noted but there is no pleural calcification on the left side evident. No new ominous lung masses. No findings in the trachea and mainstem bronchi. No rib destruction. MEDIASTINUM: There is no hilar nor mediastinal adenopathy. Thyroid not enlarged. CARDIAC: Cardiomegaly. No pericardial effusion. The diameter of the ascending thoracic aorta is enlarged, measuring 4.8 cm. The diameter of the mid aortic arch is also increased, measuring 3.2 cm. The diameter of the proximal descending thoracic aorta is also enlarged, measuring 3.4 cm. The diameter of the mid-distal descending thoracic aorta is slightly enlarged measuring 2.7 cm. There is no evidence of thoracic aortic dissection. Coronary artery calcifications noted as well as pacemaker wires. There is no significant shift of the interventricular septum. PARTIALLY VISUALIZED UPPERMOST ABDOMEN: No obvious findings OSSEOUS: No significant osseous lesions.. IMPRESSION: 1. No evidence of acute pulmonary emboli. No evidence of pulmonary infarction. 2. Prominent calcified pleural plaque on the right side again noted. No calcified pleural plaque on the left side but there is an unchanged moderate sized loculated left pleural effusion again noted. Also some scarring laterally in the left lung. 3. Enlarged ascending thoracic aorta with diameter of 4.8 cm. Also some enlargement of the aortic arch and descending thoracic aorta. There is no evidence of aortic dissection and no pericardial effusion. ECG Data Attestation: I personally reviewed and interpreted this ECG (s) as follows: Prior ECG tracings: available for review Interpretation: paced, rate of 64 no significant changes from baseline, motion artifact Quality:SDOH Health Related Social Needs: No Data to Display PFSH All Active Problems (Updated 12/23/23 @ 12:31 by Jayesh Marquez MD) Hemoptysis (Acute) CVA (cerebral vascular accident) (Acute) Acute right-sided weakness (Acute) Dementia (Chronic) Hyponatremia (Chronic) CHF (congestive heart failure) (Chronic) Shortness of breath (Acute) Nail dystrophy (Acute) Restrictive lung disease (Acute) Asthma (Chronic) Shortness of breath (Acute) Sebaceous cyst (Acute) Nasal obstruction (Acute) External nasal lesion (Acute) Hypertension (Chronic) Left lower lobe pneumonia (Acute) Bloating (Acute) Heme positive stool (Acute) Infected sebaceous cyst of skin (Acute) Trapped lung (Acute) Sacroiliitis (Acute) Depression (Chronic) Lymphedema (Acute) HTN (hypertension) with goal to be determined (Chronic) Obesity (Chronic) DNR (do not resuscitate) (Acute) Presence of cardiac pacemaker (Chronic) [employer] Discoveryo PPM MRI model L111 Serial # [id number] placed dual chamber 04/30/2017 for CHB at [facility]. 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 Most likely this is inflammatory tissue and not actually fluid. pt has had multiple taps. He was on a prolonged course of IV abx and has failed to resolve. This is a sequelae of this pericardial tamponade following disruption of his RA lead from pacemaker insertion. Hyponatremia, hypo-osmolarity, or hypo-osmolar hyponatremia Surgical History S/P laparoscopic cholecystectomy History of permanent cardiac pacemaker placement with subsequent repositioning Family History Son Alcohol use disorder Social History Smoking/Tobacco Use Status: Former Tobacco Use tobacco type: smokeless tobacco Smoking risk assessment performed?: Yes Alcohol Intake: current Alcohol Intake frequency: 0-2 drinks per day Alcohol type: beer Drug use: Never Substance use type: does not use Housing: intermediate Pets and animals: No Do you feel safe at home: Yes Do you feel safe in your relationship?: Yes Additional Social history: 2 sons cirrhosis/EtOH, has been in [place] [facility]
--- OUTSIDE RECORDS SUMMARY | 2023-12-23 09:33 | XMS_ITS | Encounter Summary ---
Author Organization [facility] Address [address] [place] [address] Care Team Providers Care Robotic Technician Name Role Phone Katia Stone PA-C Primary Care Provider +1- [phone] Encounter Details Date Type Department Care Team (Late st Contact Info) Description 08/17/2023 Lab Requisition [facility] Pathology & Laboratory Medicine - [address] [address] Outr Resulting Lab, Provider Social History Tobacco [...] 150 - 1,150 mOsm/kg 08/17/2023 16:14 EDT [facility] Urine URINE / Unknown 08/16/2023 2 1:50 EDT 08/17/2023 16:03 EDT Provider Outr Resulting Lab URINALYSIS O RDERABLES [facility] [address] [place] [address] documented in this encounter Visit Diagnoses Not on filedocumented in this encounter Care Teams Robotic Technician Relationship Specialty Start Date End Date Katia Stone PA-C [address] [place] [id number] PCP - General 05/02/17 documented as of this encounter
--- OUTSIDE RECORDS SUMMARY | 2023-12-23 09:33 | XMS_ITS | Referral Summary ---
Author Organization [facility] Address [address] [place] [address] Care Team Providers Care Game Designer/Creative Director Name Role Phone Katia Stone PA-C Primary Care Provider +1- [phone] Allergies No known active allergies Medications Medication [...] Overview: Added automatically from request for surgery [id number] Heart failure (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) 04/30/2017 Resolved Problems Problem Noted Date Diagnosed Date Resolved Date Acute on chronic diastolic c ongestive heart failure ([facility]) 05/01/2017 05/27/2017 Social History Tobacco Use Types [...] on file Medical Devices Implanted Type Area Shop Tailor Device Identifier Shelf Expiration Date Model / Serial / Lot [id number] Webtalkity Mri - [id number] Implanted:05/02 (Quantity not on file) Lead [employer] 7742 INGEVITY MRI / [id number] / Description:Implant record l oaded by [employer] import. 3830 Selectsecure Mri Surescan - [id number] Implanted:05/21 (Quantity not on file) Lead Medtronic 3830 SELECTSECURE MRI SURESCAN / [id number] / Description:Implant record l oaded by [employer] import. L111 Essentio Mri - [id number] Implanted:05/02 (Quantity not on file) Pacemaker [employer] L111 ESSENTIO MRI / [id number] / Description:Implant record l oaded by [employer] import. Advance Directives For more information, please contact: [phone] * Full Code (Latest Code Status on [...] the discussion? Not Discusse d Care Teams Game Designer/Creative Director Relationship Specialty Start Date End Date Katia Stone PA-C [address] [place] [id number] [facility] - General 05/02/17
--- OUTSIDE RECORDS SUMMARY | 2023-12-23 09:33 | XMS_ITS | Encounter Summary ---
Author Organization [facility] Address [address] [place] [address] Care Team Providers Care Deflector Operator Name Role Phone Katia Stone PA-C Primary Care Provider +1- [phone] Encounter Details Date Type Department Care Team (Late st Contact Info) Description 08/17/2023 Lab Requisition [facility] Pathology & Laboratory Medicine - [address] [address] Outr Resulting Lab, Provider Social History Tobacco [...] 275 - 295 mOsm/kg 08/17/2023 16:24 EDT [facility] Blood VENOUS BLOOD / Unknown 08/16/2023 20:10 EDT 08/17/2023 16:03 EDT Provider Outr Resulting Lab CHEMISTRY & BLOOD GAS ORDERABLES [facility] [address] [place] [address] documented in this encounter Visit Diagnoses Not on filedocumented in this encounter Care Teams Deflector Operator Relationship Specialty Start Date End Date Katia Stone PA-C [address] [place] [phone] PCP - General 05/02/17 documented as of this encounter
--- OUTSIDE RECORDS SUMMARY | 2023-12-23 09:33 | XMS_ITS | Clinical Summary ---
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 Hypertensive urgency 05/01/2017 Heart block AV third degree ([facility]) 04/30/2017 Resolved Problems Problem Noted Date Diagnosed Date Resolved Date Acute on chronic diastolic c ongestive heart failure ([facility]) 05/01/2017 05/27/2017 Surgical History Surgery Date Site/Laterality Comments PACEMAKER PLACEMENT 03/03/2017 - 03/02/2018 OTHER SURGICAL HISTORY 06/19/20 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 Also lead [...] many all messed up Complete heart block ([facility]) 0 06/19/20 now has pacemaker with infected lead CAD (coronary artery disease) per pt Community acquired pneumonia pt states i get pneumonia every year - feels like he has it now - had a collapsed lung whoel pacer issues per pt - Acid Tester office aware Family History Medical History Relation [...] season) 2023 Medical Devices Implanted Type Area Medical Assistant Internal Medicine Device Identifier Shelf Expiration Date Model / Serial / Lot [id number] [facility] [id number] Implanted:05/02 (Quantity not on file) Lead [employer] 7742 [facility] / [id number] / Description:Implant record l oaded by IMP Chronicles import. 3830 [employer] Mri Surescan - [id number] Implanted:05/21 (Quantity not on file) Lead Medtronic 3830 SELECTSECURE MRI SURESCAN / [id number] / Description:Implant record l oaded by IMP Chronicles import. L111 [employer] Mri - [id number] Implanted:05/02 (Quantity not on file) Pacemaker [employer] L111 [employer] MRI / [id number] / Description:Implant record l oaded by IMP Chronicles import. Advance Directives For more information, please contact: [phone] * Full Code (Latest Code Status on [...] the discussion? Not Discusse d Care Teams Shorer Relationship Specialty Start Date End Date Katia Stone, MINGO [address] [place] [phone] PCP - General 05/02/17
--- OUTSIDE RECORDS SUMMARY | 2023-12-23 09:34 | XMS_ITS | Encounter Summary ---
Author Organization [facility] Address [address] [place] [address] Care Team Providers Care Chemical Project Engineer Name Role Phone Katia Stone PA-C Primary Care Provider +1- [phone] Encounter Details Date Type Department Care Team (Late st Contact Info) Description 09/10/2020 Results Only [facility] [phone] Rowan Abad, TAIWO [address] [place] [phone] Social History Tobacco Use Types Packs/Day [...] - 450 10 3/uL 09/10/2020 6:29 EDT [facility] 09/10/2020 5:40 EDT 09/10/2020 6:11 EDT Narrative [facility] - 09/10/2020 6:49 EDT Comment ENOXAPARIN MONITORING Rowan Abad NP HEMATOLOGY & PF4 ORD ERABLES Performing Organization Address City/State/[facility] Co de Phone Number [facility] [address] [place] [address] * (ABNORMAL) CREATININE WITH GFR - PMC (09/10/2020 5:40 EDT) Pathologist [facility] Creatinine 0.57(L) 0.70 - 1.30 mg/dl 09/10/2020 6:42 EDT [facility] Estimated GFR >60 >60 09/10/2020 6:42 EDT [facility] Comment: EGFR UNITS: mL/min/1.73 m 2 CKD-EPI Equation used to calculate. 09/10/2020 5:40 EDT 09/10/2020 6:11 EDT Rowan Abad NP CHEMISTRY & BLOOD GA S ORDERABLES [facility] [address] [place] [address] documented in this encounter Visit Diagnoses Not on filedocumented in this encounter Care Teams Chemical Project Engineer Relationship Specialty Start Date End Date Katia Stone, [place]INGO [address] [place] [phone] PCP - General 05/02/17 documented as of this encounter
--- OUTSIDE RECORDS SUMMARY | 2023-12-23 09:34 | XMS_ITS | Encounter Summary ---
Author Organization [facility] Address [address] [place] [address] Care Team Providers Care Functional Analyst Name Role Phone Katia Stone PA-C Primary Care Provider +1- [phone] Encounter Details Date Type Department Care Team (Late st Contact Info) Description 08/11/2020 Results Only [facility] [address] [place] [address] Ester Valerio MD [address] [facility] [address] [place] [phone] Social History Tobacco Use Types Packs/Day Years [...] 1.8 - 2.4 mg/dl 08/11/2020 6:07 EDT [facility] 08/11/2020 5:25 EDT 08/11/2020 5:39 EDT Ester Valerio MD CHEMISTRY & BLOO D GAS ORDERABLES Performing Organization Address City/State/[facility] Co de Phone Number [facility] [address] [place] [address] * (ABNORMAL) BASIC METABOLIC PANEL (BMP) (08/11/2020 5:25 EDT) Sodium 132(L) 136 - 145 mEq/L 08/11/2020 6:07 EDT [facility] Potassium 3.5 3.5 - 5.1 mEq/L 08/11/2020 6:07 T [facility] Chloride 99 96 - 107 mEq/L 08/11/2020 6:07 EDT [facility] CO2 Total 28.6 21 - 32 mEq/L 08/11/2020 6:07 [facility] Anion Gap 4.4 mEq/L 08/11/2020 6:07 [facility] BUN 5(L) 7 - 25 mg/dl 08/11/2020 6:07 [facility] Creatinine 0.51(L) 0.70 - 1.30 mg/dl 08/11/2020 6:07 [facility] Estimated GFR >60 >60 08/11/2020 6:07 [facility] Comment: EGFR UNITS: mL/min/1.73 m 2 CKD-EPI Equation used to calculate. Glucose 112(H) 74 - 106 mg/dl 08/11/2020 6:07 [facility] Calcium 7.7(L) 8.5 - 10.1 mg/dl 08/11/2020 6:07 [facility] 08/11/2020 5:25 EDT 08/11/2020 5:39 EDT Ester Valerio MD CHEMISTRY & BLOO D GAS ORDERABLES [facility] [address] [place] [address] * (ABNORMAL) HEPATIC FUNCTION PANEL (ALB,ALK PHOS,ALT,AST,DBIL,TOT BOSSMAN,TOT PROT) (08/11/2020 5:25 EDT) BILIRUBIN - PMC 0.70 0.00 - 1.00 mg/dl 08/11/2020 6:07 [facility] DIRECT BILIRUBIN - PMC 0.30 0.00 - 0.30 mg/dl 08/11/2020 6:07 [facility] INDIRECT BILIRUBIN - PMC 0.40 0.00 - 0.80 mg/dl 08/11/2020 6:07 [facility] AST 39(H) 15 - 37 U/L 08/11/2020 6:07 [facility] ALT 30 16 - 63 U/L 08/11/2020 6:07 [facility] Alkaline Phosphatase 95 46 - 116 U/L 08/11/2020 6:07 EDT [facility] Total Protein 6.1(L) 6.4 - 8.2 g/dl 08/11/2020 6:07 T [facility] Albumin 2.2(L) 3.4 - 5.0 g/dl 08/11/2020 6:07 EDT [facility] GLOBULIN - PMC 3.9 g/dl 08/11/2020 6:07 EDT [facility] ALBUMIN/GLOBULIN RATIO - PMC 0.5 08/11/2020 6:07 EDT [facility] 08/11/2020 5:25 EDT 08/11/2020 5:39 EDT Ester Valerio MD CHEMISTRY & BLOO D GAS ORDERABLES [facility] [address] [place] [address] documented in this encounter Visit Diagnoses Not on filedocumented in this encounter Care Teams Functional Analyst Relationship Specialty Start Date End Date Katia Stone, BELLAC [address] [place] [phone] PCP - General 05/02/17 documented as of this encounter
--- OUTSIDE RECORDS SUMMARY | 2023-12-23 09:34 | XMS_ITS | Encounter Summary ---
Author Organization [facility] Address [address] [place] [address] Care Team Providers Care Cloth Presser Name Role Phone Katia Stone PA-C Primary Care Provider +1- [phone] Encounter Details Date Type Department Care Team (Late st Contact Info) Description 08/16/2020 Results Only [facility] [address] [place] [address] Junior Ray MD [address] [place] [address] Social History Tobacco Use Types [...] 137 136 - 145 mEq/L 08/16/2020 5:50 [facility] Potassium 3.5 3.5 - 5.1 mEq/L 08/16/2020 5:50 [facility] Chloride 103 96 - 107 mEq/L 08/16/2020 5:50 [facility] CO2 Total 28.1 21 - 32 mEq/L 08/16/2020 5:50 [facility] Anion Gap 5.9 mEq/L 08/16/2020 5:50 [facility] BUN 14 7 - 25 mg/dl 08/16/2020 5:50 [facility] Creatinine 0.57(L) 0.70 - 1.30 mg/dl 08/16/2020 5:50 [facility] Estimated GFR >60 >60 08/16/2020 5:50 [facility] Comment: EGFR UNITS: mL/min/1.73 m 2 CKD-EPI Equation used to calculate. Glucose 86 74 - 106 mg/dl 08/16/2020 5:50 [facility] Calcium 8.0(L) 8.5 - 10.1 mg/dl 08/16/2020 5:50 [facility] 08/16/2020 5:20 EDT 08/16/2020 5:29 EDT Junior Ray MD CHEMISTRY & BLOOD G ORDERABLES Performing Organization Address City/[facility]/ZIP Co de Phone Number [facility] [address] [place] [address] * (ABNORMAL) COMPLETE BLOOD COUNT (08/16/2020 5:20 EDT) Pathologist [facility] WBC 5.0 4.0 - 10.5 10 3/uL 08/16/2020 5:46 EDT [facility] RBC 2.65(L) 4.70 - 6.00 10 6/uL 08/16/2020 5:46 [facility] Hemoglobin 9.3(L) 13.5 - 18.0 g/dL 08/16/2020 5:46 [facility] HCT 27.3(L) 42.0 - 52.0 % 08/16/2020 5:46 [facility] MCV 103.0(H) 78 - 100 fL 08/16/2020 5:46 [facility] MCH 35.1(H) 27 - 31 pg 08/16/2020 5:46 [facility] MCHC 34.1 32 - 37 g/dL 08/16/2020 5:46 [facility] RDW-CV - PMC 15.1(H) <14.7 % 08/16/2020 5:46 [facility] PLATELET COUNT - PMC 202 150 - 450 10 3/uL 08/16/2020 5:46 [facility] MPV 10.1 9.2 - 12.0 fL 08/16/2020 5:46 [facility] 08/16/2020 5:20 EDT 08/16/2020 5:29 EDT Junior Ray MD HEMATOLOGY & PF4 OR DERABLES [facility] [address] [place] [address] documented in this encounter Visit Diagnoses Not on filedocumented in this encounter Care Teams Cloth Presser Relationship Specialty Start Date End Date Katia Stone, PABijalC [address] [place] [phone] PCP - General 05/02/17 documented as of this encounter
--- OUTSIDE RECORDS SUMMARY | 2023-12-23 09:34 | XMS_ITS | Encounter Summary ---
Author Organization [facility] Address [address] [place] [address] Care Team Providers Care Field Mechanic/Site Lead Name Role Phone Katia Stone PA-C Primary Care Provider +1- [phone] Encounter Details Date Type Department Care Team (Late st Contact Info) Description 08/09/2020 Results Only [facility] Dermatology - [facility] [place] [address] [place] [address] Virginia Quintana MD [address] [place] [address] Social History Tobacco Use Types Packs/Day Years [...] 128(L) 136 - 145 mEq/L 08/09/2020 6:09 [facility] Potassium 3.3(L) 3.5 - 5.1 mEq/L 08/09/2020 6:09 [facility] Chloride 90(L) 96 - 107 mEq/L 08/09/2020 6:09 [facility] CO2 Total 27.4 21 - 32 mEq/L 08/09/2020 6:09 [facility] Anion Gap 10.6 mEq/L 08/09/2020 6:09 [facility] BUN 11 7 - 25 mg/dl 08/09/2020 6:09 [facility] Creatinine 0.71 0.70 - 1.30 mg/dl 08/09/2020 6:09 [facility] Estimated GFR >60 >60 08/09/2020 6:09 [facility] Comment: EGFR UNITS: mL/min/1.73 m 2 CKD-EPI Equation used to calculate. Glucose 117(H) 74 - 106 mg/dl 08/09/2020 6:09 [facility] Calcium 8.3(L) 8.5 - 10.1 mg/dl 08/09/2020 6:09 [facility] CALCIUM,CORRECTE D - PMC 9.4 8.5 - 10.5 mg/dl 08/09/2020 6:24 [facility] BILIRUBIN - PMC 1.30(H) 0.00 - 1.00 mg/dl 08/09/2020 6:24 [facility] AST 62(H) 15 - 37 U/L 08/09/2020 6:24 [facility] ALT 46 16 - 63 U/L 08/09/2020 6:24 [facility] Alkaline Phosphatase 114 46 - 116 U/L 08/09/2020 6:24 [facility] Total Protein 6.7 6.4 - 8.2 g/dl 08/09/2020 6:24 [facility] Albumin 2.6(L) 3.4 - 5.0 g/dl 08/09/2020 6:24 [facility] GLOBULIN - PMC 4.1 g/dl 08/09/2020 6:24 [facility] ALBUMIN/GLOBULIN RATIO - PMC 0.6 08/09/2020 6:24 [facility] 08/09/2020 5:35 EDT 08/09/2020 5:44 EDT Virginia Quintana MD CHEMISTRY & BLOOD GA S ORDERABLES [facility] [address] [place] [address] * (ABNORMAL) COMPLETE BLOOD COUNT AND DIFFERENTIAL (08/09/2020 5:35 EDT) WBC 10.3 4.0 - 10.5 10 3/uL 08/09/2020 6:00 [facility] RBC 2.98(L) 4.70 - 6.00 10 6/uL 08/09/2020 6:00 [facility] Hemoglobin 10.6(L) 13.5 - 18.0 g/dL 08/09/2020 6:00 [facility] HCT 29.6(L) 42.0 - 52.0 % 08/09/2020 6:00 [facility] MCV 99.3 78 - 100 fL 08/09/2020 6:00 [facility] MCH 35.6(H) 27 - 31 pg 08/09/2020 6:00 [facility] MCHC 35.8 32 - 37 g/dL 08/09/2020 6:00 [facility] RDW-CV - PMC 13.8 <14.7 % 08/09/2020 6:00 [facility] PLATELET COUNT - PMC 179 150 - 450 10 3/uL 08/09/2020 6:00 [facility] MPV 11.6 9.2 - 12.0 fL 08/09/2020 6:00 [facility] NEUTROPHILS % (AUTO) - PMC 84.2 % 08/09/2020 6:00 [facility] LYMPHOCYTES % (AUTO) - PMC 7.2 % 08/09/2020 6:00 [facility] MONOCYTES % (AUTO) - PMC 8.0 % 08/09/2020 6:00 [facility] EOSINOPHILS % (AUTO) - PMC 0.0 % 08/09/2020 6:00 [facility] BASOPHILS % (AUTO) - PMC 0.1 % 08/09/2020 6:00 [facility] Immature Granulocyte % (Auto) 0.5 % 08/09/2020 6:00 [facility] NUCLEATED RBC % (AUTO) - PMC 0.0 % 08/09/2020 6:00 [facility] NEUTROPHILS # (AUTO) - PMC 8.7(H) 1.5 - 6.6 10 3/uL 08/09/2020 6:00 [facility] LYMPHOCYTES # (AUTO) - PMC 0.7(L) 1.0 - 3.5 10 3/uL 08/09/2020 6:00 [facility] MONOCYTES # (AUTO) - PMC 0.8 <1.0 10 3/uL 08/09/2020 6:00 EDT [facility] EOSINOPHILS # (AUTO) - PMC 0.0 <0.7 10 3/uL 08/09/2020 6:00 EDT [facility] Absolute Immature Granulocyte 0.05 <0.06 10 3/uL 08/09/2020 6:00 EDT [facility] DIFFERENTIAL METHOD Auto Differential 08/09/2020 5:46 EDT [facility] 08/09/2020 5:35 EDT 08/09/2020 5:44 EDT Virginia Quintana MD PACKAGES & DNA PROBE ORDERABLES Performing Organization Address City/State/[facility] Co de Phone Number [facility] [address] [place] [address] * C DIFFICILE TOXIN PCR, F > 2 YRS - PMC (08/09/2020 3:24 EDT) 08/09/2020 3:24 EDT 08/10/2020 5:39 EDT Comment:KWASI Narrative [facility] - 08/10/2020 6:26 EDT ----- ------- ?? RUN DATE: 08/10/20 ? [facility] *LIVE* ? PAGE 1 ? RUN TIME: 625 ?Specimen Inquiry ? ----- ------- ?? PATIENT: DAVID FARFAN ? ACCT: [id number] LOC: ??MS ? U: [id number] ? AGE/SX: 69/M ? ROOM: 138 ?RE08/09/20 ?? REG DR: ??Ester Valerio MD ? : ?1950 ?? BED: ??1 ?DIS: ? STATUS: ADM Astrid ?TLOC: ? ----- ------- ? SPEC #: [id number] ?ALEX: 08/09/20-323 ? STATUS: ??COMP ? REQ #: [id number] ?RECD: 08/10/20 ? SUBM DR: Jennifer Tyson [...] Quintana MD MICROBIOLOGY - GENER AL ORDERABLES [facility] [address] [place] [address] documented in this encounter Visit Diagnoses Not on filedocumented in this encounter Care Teams Field Mechanic/Site Lead Relationship Specialty Start Date End Date Katia Stone, PABijalC [address] [place] [phone] PCP - General 05/02/17 documented as of this encounter
--- OUTSIDE RECORDS SUMMARY | 2023-12-23 09:34 | XMS_ITS | Encounter Summary ---
Author Organization [facility] Address [address] [place] [address] Care Team Providers Care Steamer Blocker Name Role Phone Katia Stone PA-C Primary Care Provider +1- [phone] Encounter Details Date Type Department Care Team (Late st Contact Info) Description 08/14/[address] [facility] [address] [place] [address] Jayesh Oloms MD [address] [place] [address] Social History Tobacco Use Types [...] 1.8 - 2.4 mg/dl 08/14/2020 6:19 EDT LAB 08/14/2020 5:03 EDT 08/14/2020 5:51 EDT Jayesh Olmos MD CHEMISTRY & BLO OD GAS ORDERABLES LAB [address] [place] [address] * (ABNORMAL) COMPREHENSIVE METABOLIC PANEL (CMP) (08/14/2020 5:03 EDT) Sodium 138 136 - 145 mEq/L 08/14/2020 6:19 EDT LAB Potassium 3.6 3.5 - 5.1 mEq/L 08/14/2020 6:19 [facility] Chloride 103 96 - 107 mEq/L 08/14/2020 6:19 T LAB CO2 Total 28.4 21 - 32 mEq/L 08/14/2020 6:19 T LAB Anion Gap 6.6 mEq/L 08/14/2020 6:19 [facility] BUN 11 7 - 25 mg/dl 08/14/2020 6:19 [facility] Creatinine 0.51(L) 0.70 - 1.30 mg/dl 08/14/2020 6:19 [facility] Estimated GFR >60 >60 08/14/2020 6:19 [facility] Comment: EGFR UNITS: mL/min/1.73 m 2 CKD-EPI Equation used to calculate. Glucose 101 74 - 106 mg/dl 08/14/2020 6:19 [facility] Calcium 8.1(L) 8.5 - 10.1 mg/dl 08/14/2020 6:19 [facility] CALCIUM,CORRECTE D - PMC 9.5 8.5 - 10.5 mg/dl 08/14/2020 6:19 [facility] BILIRUBIN - PMC 0.40 0.00 - 1.00 mg/dl 08/14/2020 6:19 [facility] AST 34 15 - 37 U/L 08/14/2020 6:19 [facility] ALT 21 16 - 63 U/L 08/14/2020 6:19 [facility] Alkaline Phosphatase 102 46 - 116 U/L 08/14/2020 6:19 [facility] Total Protein 6.3(L) 6.4 - 8.2 g/dl 08/14/2020 6:19 [facility] Albumin 2.2(L) 3.4 - 5.0 g/dl 08/14/2020 6:19 [facility] GLOBULIN - PMC 4.1 g/dl 08/14/2020 6:19 [facility] ALBUMIN/GLOBULIN RATIO - PMC 0.5 08/14/2020 6:19 [facility] 08/14/2020 5:03 EDT 08/14/2020 5:51 EDT Jayesh Olmos MD CHEMISTRY & BLO OD GAS ORDERABLES LAB [address] [place] [address] * (ABNORMAL) COMPLETE BLOOD COUNT AND DIFFERENTIAL (08/14/2020 5:03 EDT) WBC 5.1 4.0 - 10.5 10 3/uL 08/14/2020 6:06 [facility] RBC 2.76(L) 4.70 - 6.00 10 6/uL 08/14/2020 6:06 [facility] Hemoglobin 9.9(L) 13.5 - 18.0 g/dL 08/14/2020 6:06 [facility] HCT 28.7(L) 42.0 - 52.0 % 08/14/2020 6:06 [facility] MCV 104.0(H) 78 - 100 fL 08/14/2020 6:06 [facility] MCH 35.9(H) 27 - 31 pg 08/14/2020 6:06 [facility] MCHC 34.5 32 - 37 g/dL 08/14/2020 6:06 [facility] RDW-CV - PMC 15.9(H) <14.7 % 08/14/2020 6:06 [facility] PLATELET COUNT - PMC 189 150 - 450 10 3/uL 08/14/2020 6:06 [facility] MPV 10.8 9.2 - 12.0 fL 08/14/2020 6:06 [facility] NEUTROPHILS % (AUTO) - PMC 54.7 % 08/14/2020 6:06 [facility] LYMPHOCYTES % (AUTO) - PMC 23.0 % 08/14/2020 6:06 [facility] MONOCYTES % (AUTO) - PMC 18.2 % 08/14/2020 6:06 [facility] EOSINOPHILS % (AUTO) - PMC 2.5 NOT ESTABLISHED % 08/14/2020 6:06 [facility] BASOPHILS % (AUTO) - PMC 0.8 % 08/14/2020 6:06 [facility] Immature Granulocyte % (Auto) 0.8 % 08/14/2020 6:06 [facility] NUCLEATED RBC % (AUTO) - PMC 0.0 % 08/14/2020 6:06 [facility] NEUTROPHILS # (AUTO) - PMC 2.8 1.5 - 6.6 10 3/uL 08/14/2020 6:06 [facility] LYMPHOCYTES # (AUTO) - PMC 1.2 1.0 - 3.5 10 3/uL 08/14/2020 6:06 [facility] MONOCYTES # (AUTO) - PMC 0.9 <1.0 10 3/uL 08/14/2020 6:06 [facility] EOSINOPHILS # (AUTO) - PMC 0.1 <0.7 10 3/uL 08/14/2020 6:06 [facility] Absolute Immature Granulocyte 0.04 <0.06 10 3/uL 08/14/2020 6:06 [facility] DIFFERENTIAL METHOD Auto Differential 08/14/2020 5:52 [facility] 08/14/2020 5:03 EDT 08/14/2020 5:51 EDT Narrative LAB - 08/14/2020 6:11 EDT Comment ENOXAPARIN MONITORING Jayesh Olmos MD PACKAGES & DNA PROBE ORDERABLES LAB [address] [place] [address] documented in this encounter Visit Diagnoses Not on filedocumented in this encounter Care Teams Steamer Blocker Relationship Specialty Start Date End Date Katia Stone, PABijalC [address] [place] [phone] PCP - General 05/02/17 documented as of this encounter
--- OUTSIDE RECORDS SUMMARY | 2023-12-23 09:34 | XMS_ITS | Encounter Summary ---
Author Organization [facility] Address [address] [place] [address] Care Team Providers Care Optics Manufacturing Technician Name Role Phone Katia Stone PA-C Primary Care Provider +1- [phone] Encounter Details Date Type Department Care Team (Late st Contact Info) Description 08/25/2020 Lab Requisition [facility] Pathology & Laboratory Medicine - [address] [address] Outr Resulting Lab, Provider Social History Tobacco [...] Few Usual skin jesi 08/27/2020 15:22 EDT [facility] Smear Few Neutrophils Present(A) 08/27/2020 15:22 EDT [facility] Smear No bacteria seen(A) 08/27/2020 15:22 EDT [facility] Swab ENTIRE UPPER LIMB / Unknown 08/25/2020 14:15 EDT 08/25/2020 21:17 EDT Provider Outr Resulting Lab MICROBIOLOGY - GENERAL ORDERABLES [facility] [address] [place] [address] documented in this encounter Visit Diagnoses Not on filedocumented in this encounter Additional Health Concerns Infection Onset Date Last Indicated Resolved Time RSV 01/31/2022 01/31/2022 02/10/2022 22:1 5 EST documented as of this encounter Care Teams Optics Manufacturing Technician Relationship Specialty Start Date End Date Katia Stone, PABijalC [address] [facility] [place] [phone] PCP - General 05/02/17 documented as of this encounter
--- OUTSIDE RECORDS SUMMARY | 2023-12-23 09:34 | XMS_ITS | Encounter Summary ---
Author Organization [facility] Address [address] [place] [address] Care Team Providers Care Skate Boarder Name Role Phone Katia Stone PA-C Primary Care Provider +1- [phone] Encounter Details Date Type Department Care Team (Late st Contact Info) Description 08/12/2020 Results Only [facility] [address] [place] [address] Estre Valerio MD [address] [facility] [address] [place] [phone] Social History Tobacco Use Types Packs/Day Years [...] D GAS ORDERABLES Performing Organization Address City/State/[facility] Co de Phone Number [facility] [address] [place] [address] * (ABNORMAL) BASIC METABOLIC PANEL (BMP) (08/12/2020 6:48 EDT) Sodium 135(L) 136 - 145 mEq/L 08/12/2020 7:37 EDT [facility] Potassium 3.2(L) 3.5 - 5.1 mEq/L 08/12/2020 7:37 EDT [facility] Chloride 101 96 - 107 mEq/L 08/12/2020 7:37 EDT [facility] CO2 Total 28.8 21 - 32 mEq/L 08/12/2020 7:37 [facility] Anion Gap 4.2 mEq/L 08/12/2020 7:37 [facility] BUN 5(L) 7 - 25 mg/dl 08/12/2020 7:37 [facility] Creatinine 0.50(L) 0.70 - 1.30 mg/dl 08/12/2020 7:37 [facility] Estimated GFR >60 >60 08/12/2020 7:37 [facility] Comment: EGFR UNITS: mL/min/1.73 m 2 CKD-EPI Equation used to calculate. Glucose 102 74 - 106 mg/dl 08/12/2020 7:37 [facility] Calcium 7.9(L) 8.5 - 10.1 mg/dl 08/12/2020 7:37 [facility] 08/12/2020 6:48 EDT 08/12/2020 7:00 EDT Ester Valerio MD CHEMISTRY & BLOO D GAS ORDERABLES [facility] [address] [place] [address] * (ABNORMAL) HEPATIC FUNCTION PANEL (ALB,ALK PHOS,ALT,AST,DBIL,TOT BOSSMAN,TOT PROT) (08/12/2020 6:48 EDT) BILIRUBIN - PMC 0.50 0.00 - 1.00 mg/dl 08/12/2020 7:37 [facility] DIRECT BILIRUBIN - PMC 0.20 0.00 - 0.30 mg/dl 08/12/2020 7:37 [facility] INDIRECT BILIRUBIN - PMC 0.30 0.00 - 0.80 mg/dl 08/12/2020 7:37 [facility] AST 31 15 - 37 U/L 08/12/2020 7:37 [facility] ALT 25 16 - 63 U/L 08/12/2020 7:37 [facility] Alkaline Phosphatase 99 46 - [...] [facility] [address] [place] [address] documented in this encounter Visit Diagnoses Not on filedocumented in this encounter Care Teams Skate Boarder Relationship Specialty Start Date End Date Katia Stone, PABijalC [address] [place] [phone] PCP - General 05/02/17 documented as of this encounter
--- OUTSIDE RECORDS SUMMARY | 2023-12-23 09:34 | XMS_ITS | Encounter Summary ---
Author Organization [facility] Address [address] [place] [address] Care Team Providers Care Musical Instruments Assembler Name Role Phone Katia Stone PA-C Primary Care Provider +1- [phone] Encounter Details Date Type Department Care Team (Late st Contact Info) Description 09/14/2020 Results Only [facility] [phone] Rowan Abad, TAIWO [address] [place] [phone] Social History Tobacco Use Types Packs/Day [...] - 450 10 3/uL 09/14/2020 6:07 EDT [facility] 09/14/2020 5:35 EDT 09/14/2020 5:46 EDT Narrative [facility] - 09/14/2020 6:16 EDT Comment ENOXAPARIN MONITORING Rowan Abad NP HEMATOLOGY & PF4 ORD ERABLES Performing Organization Address City/State/[facility] Co de Phone Number [facility] [address] [place] [address] * (ABNORMAL) CREATININE WITH GFR - PMC (09/14/2020 5:35 EDT) Creatinine 0.58(L) 0.70 - 1.30 mg/dl 09/14/2020 6:09 EDT [facility] Estimated GFR >60 >60 09/14/2020 6:09 T [facility] Comment: EGFR UNITS: mL/min/1.73 m 2 CKD-EPI Equation used to calculate. 09/14/2020 5:35 EDT 09/14/2020 5:46 EDT Rowan Abad NP CHEMISTRY & BLOOD GA S ORDERABLES [facility] [address] [place] [address] documented in this encounter Visit Diagnoses Not on filedocumented in this encounter Care Teams Musical Instruments Assembler Relationship Specialty Start Date End Date Katia Stone, MINGO [address] [place] [phone] PCP - General 05/02/17 documented as of this encounter
--- OUTSIDE RECORDS SUMMARY | 2023-12-23 09:34 | XMS_ITS | Encounter Summary ---
Author Organization [facility] Address [address] [place] [address] Care Team Providers Care Actuarial Director Name Role Phone Katia Stone PA-C Primary Care Provider +1- [phone] Encounter Details Date Type Department Care Team (Late st Contact Info) Description 06/21/2021 Lab Requisition [facility] Pathology & Laboratory Medicine - [address] [address] Virginia Price, DO [address] [place] [address] Acute cholecystitis Social History Tobacco Use Types [...] explore management options, if applicable. 06/26/2021 10:43 [facility] Final Diagnosis A. GALLBLADDER, CHOLECYSTECTOMY: - Acute and chronic erosive cholecystitis. 06/26/2021 10:43 [facility] Attestation There was significant resident/fellow involvement in the diagnostic evaluation of this case. By the signature below, the attending physician certifies that they have personally conducted a gross and/or microscopic examination of the described specimens and rendered or confirmed the above diagnosis. 06/26/2021 10:43 [facility] at 1043 Clinical History Cholecystitis 06/26/2021 10:43 [facility] Gross Description A. Received [...] gallbladder or free-floating within the container. Two business representative sections and the en face cystic duct margin are submitted in A1. GIRISH GOMEZ(ASCP) 06/22/2021 7:58 06/26/2021 10:43 EDT [facility] Resident/Emile w: Chayo Chatman MD 06/26/2021 10:43 EDT [facility] Performing Lab [facility] 06/26/2021 10:43 EDT [facility] Scanned Images 06/26/2021 10:43 EDT [facility] Tissue ENTIRE GALLBLADDER / Unknown 06/21/2021 11:58 EDT 06/21/2021 17:30 EDT Virginia Price DO PATHOLOGY ORDERABLES [facility] [address] [place] [address] documented in this encounter Visit Diagnoses Diagnosis Acute cholecystitis documented in this encounter Additional Health Concerns Infection Onset Date Last Indicated Resolved Time RSV 01/31/2022 01/31/2022 02/10/2022 22:1 5 EST documented as of this encounter Care Teams Actuarial Director Relationship Specialty Start Date End Date Katia Stone, MINGO [address] [place] [phone] PCP - General 05/02/17 documented as of this encounter
--- OUTSIDE RECORDS SUMMARY | 2023-12-23 09:34 | XMS_ITS | Encounter Summary ---
Author Organization [facility] Address [address] [place] [address] Care Team Providers Care Lye Peel Operator Name Role Phone Katia Stone PA-C Primary Care Provider +1- [phone] Reason for Visit * (Routine/Next Available) - New Request Specialty Diagnoses / Procedures Referred By Contac t Referred To Contact Procedures CT OUTSIDE IMAGES BODY Unknown, Provider, Referral ID Status Reason Start Date Expiration Date V isits Requested Visits Authorized [id number] New Request 06/20/2021 1 1 Encounter Details Date Type Department Care Team (Latest Contact Info) Description 06/20/2021 15:36 EDT - 06/20/2021 23:59 EDT Hospital Encounter [facility] Secondary Reads [place] Discharge Disposition: [...] on filedocumented in this encounter Care Teams Lye Peel Operator Relationship Specialty Start Date End Date Katia Stone, PABijalC [address] [place] [phone] PCP - General 05/02/17 documented as of this encounter
--- OUTSIDE RECORDS SUMMARY | 2023-12-23 09:34 | XMS_ITS | Encounter Summary ---
Author Organization [facility] Address [address] [place] [address] Care Team Providers Care Training Analyst Name Role Phone Katia Stone PA-C Primary Care Provider +1- [phone] Encounter Details Date Type Department Care Team (Late st Contact Info) Description 09/05/2020 Results Only [facility] [phone] Rowan Abad, TAIWO [address] [place] [phone] Social History Tobacco Use Types Packs/Day [...] 4.0 - 10.5 10 3/uL 09/05/2020 14:58 [facility] RBC 3.40(L) 4.70 - 6.00 10 6/uL 09/05/2020 14:58 [facility] Hemoglobin 11.6(L) 13.5 - 18.0 g/dL 09/05/2020 14:58 [facility] HCT 33.9(L) 42.0 - 52.0 % 09/05/2020 14:58 [facility] MCV 99.7 78 - 100 fL 09/05/2020 14:58 [facility] MCH 34.1(H) 27 - 31 pg 09/05/2020 14:58 [facility] MCHC 34.2 32 - 37 g/dL 09/05/2020 14:58 [facility] RDW-CV - PMC 13.1 <14.7 % 09/05/2020 14:58 [facility] PLATELET COUNT - PMC 253 150 - 450 10 3/uL 09/05/2020 14:58 [facility] MPV 10.9 9.2 - 12.0 fL 09/05/2020 14:58 [facility] NEUTROPHILS % (AUTO) - PMC 57.6 % 09/05/2020 14:58 [facility] LYMPHOCYTES % (AUTO) - PMC 25.0 % 09/05/2020 14:58 [facility] MONOCYTES % (AUTO) - PMC 13.3 % 09/05/2020 14:58 [facility] EOSINOPHILS % (AUTO) - PMC 2.7 NOT ESTABLISHED % 09/05/2020 14:58 [facility] BASOPHILS % (AUTO) - PMC 1.1 % 09/05/2020 14:58 [facility] Immature Granulocyte % (Auto) 0.3 % 09/05/2020 14:58 [facility] NUCLEATED RBC % (AUTO) - PMC 0.0 % 09/05/2020 14:58 [facility] NEUTROPHILS # (AUTO) - PMC 3.7 1.5 - 6.6 10 3/uL 09/05/2020 14:58 [facility] LYMPHOCYTES # (AUTO) - PMC 1.6 1.0 - 3.5 10 3/uL 09/05/2020 14:58 [facility] MONOCYTES # (AUTO) - PMC 0.9 <1.0 10 3/uL 09/05/2020 14:58 [facility] EOSINOPHILS # (AUTO) - PMC 0.2 <0.7 10 3/uL 09/05/2020 14:58 [facility] BASOPHILS # (AUTO) - PMC 0.1 <0.1 10 3/uL 09/05/2020 14:58 [facility] Absolute Immature Granulocyte 0.02 <0.06 10 3/uL 09/05/2020 14:58 [facility] DIFFERENTIAL METHOD Auto Differential 09/05/2020 14:36 [facility] 09/05/2020 14:3 0 EDT 09/05/2020 14:35 EDT Rowan Abad NP PACKAGES & DNA PROBE ORDERABLES [facility] [address] [place] [address] * MAGNESIUM (09/05/2020 14:30 EDT) Pathologist [facility] Magnesium 1.8 1.8 - 2.4 mg/dl 09/05/2020 14:57 [facility] 09/05/2020 14:3 0 EDT 09/05/2020 14:35 EDT Rowan Abad NP CHEMISTRY & BLOOD GA S ORDERABLES Performing Organization Address City/[facility] Co de Phone Number [facility] [address] [place] [address] * (ABNORMAL) BASIC METABOLIC PANEL (BMP) (09/05/2020 14:30 EDT) Pathologist [facility] Sodium 132(L) 136 - 145 mEq/L 09/05/2020 14:57 [facility] Potassium 4.3 3.5 - 5.1 mEq/L 09/05/2020 14:57 [facility] Chloride 99 96 - 107 mEq/L 09/05/2020 14:57 [facility] CO2 Total 26.5 21 - 32 mEq/L 09/05/2020 14:57 [facility] Anion Gap 6.5 mEq/L 09/05/2020 14:57 [facility] BUN 12 7 - 25 mg/dl 09/05/2020 14:57 [facility] Creatinine 0.60(L) 0.70 - 1.30 mg/dl 09/05/2020 14:57 [facility] Estimated GFR >60 >60 09/05/2020 14:57 [facility] Comment: EGFR UNITS: mL/min/1.73 m 2 CKD-EPI Equation used to calculate. Glucose 100 74 - 106 mg/dl 09/05/2020 14:57 [facility] Calcium 8.6 8.5 - 10.1 mg/dl 09/05/2020 14:57 [facility] 09/05/2020 14:3 0 EDT 09/05/2020 14:35 EDT Rowan Abad SKI MA[employer]OD CHEMISTRY & BLOOD GA S ORDERABLES [facility] [address] [place] [address] documented in this encounter Visit Diagnoses Not on filedocumented in this encounter Care Teams Training Analyst Relationship Specialty Start Date End Date Katia Stone, PABijalC [address] [place] [phone] PCP - General 05/02/17 documented as of this encounter
--- OUTSIDE RECORDS SUMMARY | 2023-12-23 09:34 | XMS_ITS | Encounter Summary ---
Author Organization [facility] Address [address] [place] [address] Care Team Providers Care Information Security Manager Name Role Phone Katia Stone PA-C Primary Care Provider +1- [phone] Encounter Details Date Type Department Care Team (Late st Contact Info) Description 08/10/2020 Results Only [facility] Rheumatology [address] [place] [address] Ester Valerio MD [address] [facility] [address] [place] [phone] Social History Tobacco Use Types Packs/Day Years [...] 1.8 - 2.4 mg/dl 08/10/2020 6:13 EDT [facility] 08/10/2020 5:35 EDT 08/10/2020 5:42 EDT Ester Valerio MD CHEMISTRY & BLOO D GAS ORDERABLES [facility] [address] [place] [address] * (ABNORMAL) BASIC METABOLIC PANEL (BMP) (08/10/2020 5:35 EDT) Sodium 133(L) 136 - 145 mEq/L 08/10/2020 6:13 EDT [facility] Potassium 3.4(L) 3.5 - 5.1 mEq/L 08/10/2020 6:13 EDT [facility] Chloride 98 96 - [...] [facility] [address] [place] [address] * (ABNORMAL) HEPATIC FUNCTION PANEL (ALB,ALK PHOS,ALT,AST,DBIL,TOT [...] BLOO D GAS ORDERABLES Performing Organization Address City/State/[facility] Co de Phone Number [facility] [address] [place] [address] * (ABNORMAL) COMPLETE BLOOD COUNT AND DIFFERENTIAL [...] MD PACKAGES & DNA P ANETA ORDERABLES [facility] [address] [place] [address] documented in this encounter Visit Diagnoses Not on filedocumented in this encounter Care Teams Information Security Manager Relationship Specialty Start Date End Date Katia Stone, PABijalC [address] [place] [address] PCP - General 05/02/17 documented as of this encounter
--- OUTSIDE RECORDS SUMMARY | 2023-12-23 09:34 | XMS_ITS | Encounter Summary ---
Author Organization [facility] Address [address] [place] [address] Care Team Providers Care Physicist Solid State Name Role Phone Katia Stone PA-C Primary Care Provider +1- [phone] Encounter Details Date Type Department Care Team (Late st Contact Info) Description 08/13/2020 Lab Requisition [facility] Pathology & Laboratory Medicine - [address] [address] Outr Resulting Lab, Provider Social History Tobacco [...] ova and parasites seen. 08/14/2020 11:44 EDT [facility] Feces SPECIMEN FROM RECTUM / Unknown 08/11/2020 14:50 EDT 08/13/2020 15:22 EDT Narrative [facility] - 08/14/2020 11:44 EDT (If Cryptosporidium, Cyclospora, or Microsporidium are suspected, specific tests must be requested.) Single negative specimen does not rule out the possibility of a parasitic infection. Provider Outr Resulting Lab MICROBIOLOGY - GENERAL ORDERABLES [facility] [address] [place] [address] documented in this encounter Visit Diagnoses Not on filedocumented in this encounter Additional Health Concerns Infection Onset Date Last Indicated Resolved Time RSV 01/31/2022 01/31/2022 02/10/2022 22:1 5 EST documented as of this encounter Care Teams Physicist Solid State Relationship Specialty Start Date End Date Katia Stone, PABijalC [address] [place] [phone] PCP - General 05/02/17 documented as of this encounter
--- OUTSIDE RECORDS SUMMARY | 2023-12-23 09:34 | XMS_ITS | Encounter Summary ---
Author Organization [facility] Address [address] [place] [address] Care Team Providers Care Block Making Machine Operator Name Role Phone Katia Stone PA-C Primary Care Provider +1- [phone] Encounter Details Date Type Department Care Team (Late st Contact Info) Description 06/23/2021 Lab Requisition [facility] Pathology & Laboratory Medicine - [address] [id number] Outr Resulting Lab, Provider Social History Tobacco [...] Urine 509 150-1,150 mOsm/kg 06/23/2021 21:58 EDT [facility] Urine URINE SPECIMEN COLLECTION, CLEAN CATCH / Unknown 06/23/2021 4:00 EDT 06/23/2021 21:40 EDT Provider Outr Resulting Lab URINALYSIS O RDERABLES [facility] [address] [place] [address] documented in this encounter Visit Diagnoses Not on filedocumented in this encounter Additional Health Concerns Infection Onset Date Last Indicated Resolved Time RSV 01/31/2022 01/31/2022 02/10/2022 22:1 5 EST documented as of this encounter Care Teams Block Making Machine Operator Relationship Specialty Start Date End Date Katia Stone, BELLAC [address] [place] [phone] PCP - General 05/02/17 documented as of this encounter
--- OUTSIDE RECORDS SUMMARY | 2023-12-23 09:34 | XMS_ITS | Encounter Summary ---
Author Organization [facility] Address [address] [place] [address] Care Team Providers Care Inspector And Hand Packager Name Role Phone Katia Stone PA-C Primary Care Provider +1- [phone] Encounter Details Date Type Department Care Team (Late st Contact Info) Description 08/20/2020 Results Only [facility] [address] [place] [address] Marilyn Hood MD [address] [place] [address] Social History Tobacco Use Types [...] BLO OD GAS ORDERABLES Performing Organization Address City/State/[facility] Co de Phone Number [facility] [address] [place] [address] documented in this encounter Visit Diagnoses Not on filedocumented in this encounter Care Teams Inspector And Hand Packager Relationship Specialty Start Date End Date Katia Stone, PABijalC [address] [facility] [place] [phone] PCP - General 05/02/17 documented as of this encounter
--- OUTSIDE RECORDS SUMMARY | 2023-12-23 09:34 | XMS_ITS | Encounter Summary ---
Author Organization [facility] Address [address] [place] [address] Care Team Providers Care Exceptional Children'S Teacher Name Role Phone Katia Stone PA-C Primary Care Provider +1- [phone] Encounter Details Date Type Department Care Team (Late st Contact Info) Description 03/13/2022 Lab Requisition [facility] Pathology & Laboratory Medicine - [address] [address] Outr Resulting Lab, Provider Social History Tobacco [...] Antigen Detection Negative Negative 03/13/2022 21:38 EST [facility] Urine URINE / Unknown 03/12/2022 1 9:15 EST 03/13/2022 17:44 EST Provider Outr Resulting Lab MICROBIOLOGY - GENERAL ORDERABLES Performing Organization Address City/State/[facility] Co de Phone Number [facility] [address] [place] [address] documented in this encounter Visit Diagnoses Not on filedocumented in this encounter Care Teams Exceptional Children'S Teacher Relationship Specialty Start Date End Date Katia Stone, PABijalC [address] [place] [address] PCP - General 05/02/17 documented as of this encounter
--- OUTSIDE RECORDS SUMMARY | 2023-12-23 09:34 | XMS_ITS | Encounter Summary ---
Author Organization [facility] Address [address] [place] [address] Care Team Providers Care Foreign Clerk Name Role Phone Katia Stone PA-C Primary Care Provider +1- [phone] Encounter Details Date Type Department Care Team (Late st Contact Info) Description 08/25/2020 Lab Requisition [facility] Pathology & Laboratory Medicine - [address] [address] Outr Resulting Lab, Provider Social History Tobacco [...] 1, PCR Negative Negative 08/26/2020 17:16 EDT [facility] Herpes Simplex Virus Molecular Detection 2, PCR Negative Negative 08/26/2020 17:16 EDT [facility] Swab ENTIRE UPPER LIMB / Unknown 08/25/2020 14:15 EDT 08/25/2020 21:20 EDT Provider Outr Resulting Lab MICROBIOLOGY - GENERAL ORDERABLES Performing Organization Address City/State/[facility] Co de Phone Number [facility] [address] [place] [address] documented in this encounter Visit Diagnoses Not on filedocumented in this encounter Additional Health Concerns Infection Onset Date Last Indicated Resolved Time RSV 01/31/2022 01/31/2022 02/10/2022 22:1 5 EST documented as of this encounter Care Teams Foreign Clerk Relationship Specialty Start Date End Date Katia Stone PA-C [address] [place] [address] PCP - General 05/02/17 documented as of this encounter
--- OUTSIDE RECORDS SUMMARY | 2023-12-23 09:34 | XMS_ITS | Encounter Summary ---
Author Organization [facility] Address [address] [place] [address] Care Team Providers Care Geology Associate Name Role Phone Katia Stone PA-C Primary Care Provider +1- [phone] Encounter Details Date Type Department Care Team (Late st Contact Info) Description 09/06/2020 Results Only [facility] [phone] Rowan Abad, TAIWO [address] [place] [phone] Social History Tobacco Use Types Packs/Day [...] PLATELET COUNT (09/06/2020 5:05 EDT) Pathologist [facility] PLATELET COUNT - [facility] 236 150 - 450 10 3/uL 09/06/2020 5:55 EDT [facility] 09/06/2020 5:05 EDT 09/06/2020 5:32 EDT Narrative [facility] - 09/06/2020 5:58 EDT Comment ENOXAPARIN MONITORING Rowan Abad NP HEMATOLOGY & PF4 ORD ERABLES Performing Organization Address City/State/[facility] Co de Phone Number [facility] [address] [place] [address] * (ABNORMAL) CREATININE WITH GFR - PMC (09/06/2020 5:05 EDT) Pathologist [facility] Creatinine 0.60(L) 0.70 - 1.30 mg/dl 09/06/2020 5:52 EDT [facility] Estimated GFR >60 >60 09/06/2020 5:52 EDT [facility] Comment: EGFR UNITS: mL/min/1.73 m 2 CKD-EPI Equation used to calculate. 09/06/2020 5:05 EDT 09/06/2020 5:32 EDT Rowan Abad NP CHEMISTRY & BLOOD GA S ORDERABLES [facility] [address] [place] [address] documented in this encounter Visit Diagnoses Not on filedocumented in this encounter Care Teams Geology Associate Relationship Specialty Start Date End Date Katia Stone, MINGO [address] [place] [phone] PCP - General 05/02/17 documented as of this encounter
--- OUTSIDE RECORDS SUMMARY | 2023-12-23 09:34 | XMS_ITS | Encounter Summary ---
Author Organization [facility] Address [address] [place] [address] Care Team Providers Care Middle School Assistant Principal Name Role Phone Katia Stone PA-C Primary Care Provider +1- [phone] Encounter Details Date Type Department Care Team (Late st Contact Info) Description 08/13/2020 Lab Requisition [facility] Pathology & Laboratory Medicine - [address] [address] Outr Resulting Lab, Provider Social History Tobacco [...] Salmonella PCR Negative Negative 08/13/2020 19:51 EDT [facility] Shigella/Enteroin vasive E. coli Negative Negative 08/13/2020 19:51 EDT [facility] HN LAB CAMPYLOBACTER PCR Negative Negative 08/13/2020 19:51 EDT [facility] Shiga Toxin PCR Negative Negative 19:51 EDT [facility] Feces SPECIMEN FROM RECTUM / Unknown 08/11/2020 14:50 EDT 08/13/2020 15:22 EDT Provider Outr Resulting Lab MICROBIOLOGY - GENERAL ORDERABLES [facility] [address] [place] [address] documented in this encounter Visit Diagnoses Not on filedocumented in this encounter Additional Health Concerns Infection Onset Date Last Indicated Resolved Time RSV 01/31/2022 01/31/2022 02/10/2022 22:1 5 EST documented as of this encounter Care Teams Middle School Assistant Principal Relationship Specialty Start Date End Date Katia Stone, PABijalC [address] [place] [phone] PCP - General 05/02/17 documented as of this encounter
--- OUTSIDE RECORDS SUMMARY | 2023-12-23 09:34 | XMS_ITS | Encounter Summary ---
Author Organization [facility] Address [address] [place] [address] Care Team Providers Care Home Service Technician Name Role Phone Katia Stone PA-C Primary Care Provider +1- [phone] Encounter Details Date Type Department Care Team (Late st Contact Info) Description 08/29/2020 Results Only [facility] [phone] Rowan Abad, TAIWO [address] [place] [phone] Social History Tobacco Use Types Packs/Day [...] 0.70 - 1.30 mg/dl 08/29/2020 5:41 EDT [facility] Estimated GFR >60 >60 08/29/2020 5:41 EDT [facility] Comment: EGFR UNITS: mL/min/1.73 m 2 CKD-EPI Equation used to calculate. 08/29/2020 5:05 EDT 08/29/2020 5:23 EDT Rowan Abad NP CHEMISTRY & BLOOD GA S ORDERABLES Performing Organization Address City/[facility]/ZIP Co de Phone Number [facility] [address] [place] [address] * PLATELET COUNT (08/29/2020 5:05 EDT) PLATELET COUNT - [facility] 324 150 - 450 10 3/uL 08/29/2020 5:39 EDT [facility] 08/29/2020 5:05 EDT 08/29/2020 5:23 EDT Narrative [facility] - 08/29/2020 5:41 EDT Comment ENOXAPARIN MONITORING Rowan Abad NP HEMATOLOGY & PF4 ORD ERABLES [facility] [address] [place] [address] documented in this encounter Visit Diagnoses Not on filedocumented in this encounter Care Teams Home Service Technician Relationship Specialty Start Date End Date Katia Stone, MINGO [address] [place] [phone] PCP - General 05/02/17 documented as of this encounter
--- OUTSIDE RECORDS SUMMARY | 2023-12-23 09:34 | XMS_ITS | Encounter Summary ---
Author Organization [facility] Address [address] [place] [address] Care Team Providers Care Pre Sales Technical Engineer Name Role Phone Katia Stone PA-C Primary Care Provider +1- [phone] Encounter Details Date Type Department Care Team (Late st Contact Info) Description 02/01/2022 Lab Requisition [facility] Pathology & Laboratory Medicine - [address] [address] Outr Resulting Lab, Provider Social History Tobacco [...] Result (FLARES) Negative Negative 02/02/2022 1:45 EST [facility] FLU B RNA Result (FLBRES) Negative Negative 02/02/2022 1:45 EST [facility] RSV RNA Result (RSVRES) Positive(A) Negative 02/02/2022 1:45 EST [facility] Swab ENTIRE NASOPHARYNX / Unknown 01/31/2022 9:47 EST 02/01/2022 20:34 EST Provider Outr Resulting Lab MICROBIOLOGY - GENERAL ORDERABLES Performing Organization Address City/State/[facility] Co de Phone Number [facility] [address] [place] [address] documented in this encounter Visit Diagnoses Not on filedocumented in this encounter Additional Health Concerns Infection Onset Date Last Indicated Resolved Time RSV 01/31/2022 01/31/2022 02/10/2022 22:1 5 EST documented as of this encounter Care Teams Pre Sales Technical Engineer Relationship Specialty Start Date End Date Katia Stone, PABijalC [address] [facility] [place] [place] [phone] PCP - General 05/02/17 documented as of this encounter
--- OUTSIDE RECORDS SUMMARY | 2023-12-23 09:34 | XMS_ITS | Encounter Summary ---
Author Organization [facility] Address [address] [place] [address] Care Team Providers Care Aircraft Sales Representative Name Role Phone Katia Stone PA-C Primary Care Provider +1- [phone] Encounter Details Date Type Department Care Team (Late st Contact Info) Description 04/30/2022 Lab Requisition [facility] Pathology & Laboratory Medicine - [address] [address] Ike Chahal MD [address] [place] [address] Disorder of the skin and subcutaneous tissue, [...] explore management options, if applicable. 05/01/2022 14:29 [facility] Final Diagnosis A. SKIN OF NASAL TIP, EXCISION: - Dermal fibrosis, adipose accumulation, and edema with sebaceous hyperplasia and lymphoplasmacytic inflammation. See comment. 05/01/2022 14:29 [facility] Diagnosis Comment The histopathologic features, in the correct clinical setting, are most suggestive of rhinophyma. There is no evidence of malignancy. 05/01/2022 14:29 [facility] Attestation By the signature below, the attending physician certifies that they have 1) personally conducted a gross and/or microscopic examination of the described specimen(s), and/or personally interpreted the results of laboratory testing of the described specimen(s), and 2) personally rendered or confirmed the above diagnosis. 05/01/2022 14:29 [facility] at 1429 Microscopic [...] direct continuity with overlying epidermis. 05/01/2022 14:29 [facility] Clinical History Nasal tip lesion; clinical diagnosis code: L98.9 05/01/2022 14:29 [facility] Gross Description [...] sections GIRISH GOMEZ(ASCP) 04/30/2022 9:39 05/01/2022 14:29 [facility] Performing Lab [facility] 05/01/2022 14:29 [facility] Scanned Images 05/01/2022 14:29 [facility] Tissue TISSUE SPECIMEN FROM SKIN / Unknown 04/29/2022 14:00 EST 04/30/2022 9:00 EST Ike Chahal MD PATHOLOGY ORDERABLES [facility] [address] [place] [address] documented in this encounter Visit Diagnoses Diagnosis Disorder of the skin and subcutaneous tissue, unspecified documented in this encounter Care Teams Aircraft Sales Representative Relationship Specialty Start Date End Date Katia Stone, BELLAC [address] [facility] [place] [phone] PCP - General 05/02/17 documented as of this encounter
--- OUTSIDE RECORDS SUMMARY | 2023-12-23 09:34 | XMS_ITS | Encounter Summary ---
Author Organization [facility] Address [address] [place] [address] Care Team Providers Care College Tutor Name Role Phone Katia Stone PA-C Primary Care Provider +1- [phone] Encounter Details Date Type Department Care Team (Late st Contact Info) Description 08/22/2020 Results Only [facility]- [facility] [phone] Rowan Abad, TAIWO [address] [place] [phone] Social History Tobacco Use Types Packs/Day [...] Results * MAGNESIUM (08/22/2020 5:30 EDT) Pathologist [facility] Magnesium 1.8 1.8 - 2.4 mg/dl 08/22/2020 6:03 T [facility] 08/22/2020 5:30 EDT 08/22/2020 5:39 EDT Rowan Abad NP CHEMISTRY & BLOOD GA S ORDERABLES [facility] [address] [place] [address] * (ABNORMAL) BASIC METABOLIC PANEL (BMP) (08/22/2020 5:30 EDT) Sodium 133(L) 136 - 145 mEq/L 08/22/2020 6:03 EDT [facility] Potassium 3.7 3.5 - 5.1 mEq/L 08/22/2020 6:03 [facility] Chloride 101 96 - 107 mEq/L 08/22/2020 6:03 [facility] CO2 Total 26.1 21 - 32 mEq/L 08/22/2020 6:03 [facility] Anion Gap 6.9 mEq/L 08/22/2020 6:03 [facility] BUN 8 7 - 25 mg/dl 08/22/2020 6:03 [facility] Creatinine 0.67(L) 0.70 - 1.30 mg/dl 08/22/2020 6:03 [facility] Estimated GFR >60 >60 08/22/2020 6:03 [facility] Comment: EGFR UNITS: mL/min/1.73 m 2 CKD-EPI Equation used to calculate. Glucose 94 74 - 106 mg/dl 08/22/2020 6:03 [facility] Calcium 8.2(L) 8.5 - 10.1 mg/dl 08/22/2020 6:03 [facility] 08/22/2020 5:30 EDT 08/22/2020 5:39 EDT Rowan Abad NP CHEMISTRY & BLOOD GA S ORDERABLES Performing Organization Address City/State/[facility] Co de Phone Number [facility] [address] [place] [address] * (ABNORMAL) COMPLETE BLOOD COUNT AND DIFFERENTIAL (08/22/2020 5:30 EDT) WBC 6.0 4.0 - 10.5 10 3/uL 08/22/2020 5:56 [facility] RBC 2.84(L) 4.70 - 6.00 10 6/uL 08/22/2020 5:56 [facility] Hemoglobin 10.0(L) 13.5 - 18.0 g/dL 08/22/2020 5:56 [facility] HCT 28.3(L) 42.0 - 52.0 % 08/22/2020 5:56 [facility] MCV 99.6 78 - 100 fL 08/22/2020 5:56 [facility] MCH 35.2(H) 27 - 31 pg 08/22/2020 5:56 [facility] MCHC 35.3 32 - 37 g/dL 08/22/2020 5:56 [facility] RDW-CV - PMC 14.3 <14.7 % 08/22/2020 5:56 [facility] PLATELET COUNT - PMC 209 150 - 450 10 3/uL 08/22/2020 5:56 [facility] MPV 11.7 9.2 - 12.0 fL 08/22/2020 5:56 [facility] NEUTROPHILS % (AUTO) - PMC 58.1 % 08/22/2020 5:56 [facility] LYMPHOCYTES % (AUTO) - PMC 22.9 % 08/22/2020 5:56 [facility] MONOCYTES % (AUTO) - PMC 14.4 % 08/22/2020 5:56 [facility] EOSINOPHILS % (AUTO) - PMC 3.3 NOT ESTABLISHED % 08/22/2020 5:56 [facility] BASOPHILS % (AUTO) - PMC 1.0 % 08/22/2020 5:56 [facility] Immature Granulocyte % (Auto) 0.3 % 08/22/2020 5:56 [facility] NUCLEATED RBC % (AUTO) - PMC 0.0 % 08/22/2020 5:56 [facility] NEUTROPHILS # (AUTO) - PMC 3.5 1.5 - 6.6 10 3/uL 08/22/2020 5:56 [facility] LYMPHOCYTES # (AUTO) - PMC 1.4 1.0 - 3.5 10 3/uL 08/22/2020 5:56 [facility] MONOCYTES # (AUTO) - PMC 0.9 <1.0 10 3/uL 08/22/2020 5:56 [facility] EOSINOPHILS # (AUTO) - PMC 0.2 <0.7 10 3/uL 08/22/2020 5:56 [facility] BASOPHILS # (AUTO) - PMC 0.1 <0.1 10 3/uL 08/22/2020 5:56 [facility] Absolute Immature Granulocyte 0.02 <0.06 10 3/uL 08/22/2020 5:56 [facility] DIFFERENTIAL METHOD Auto Differential 08/22/2020 5:41 [facility] 08/22/2020 5:30 EDT 08/22/2020 5:39 EDT Rowan Abad OXYGEN THERAPIST PACKAGES & DNA PROBE ORDERABLES [facility] [address] [place] [address] documented in this encounter Visit Diagnoses Not on filedocumented in this encounter Care Teams College Tutor Relationship Specialty Start Date End Date Katia Stone, PABijalC [address] [place] [phone] PCP - General 05/02/17 documented as of this encounter
--- OUTSIDE RECORDS SUMMARY | 2023-12-23 09:34 | XMS_ITS | Encounter Summary ---
Author Organization [facility] Address [address] [place] [address] Care Team Providers Care Grinding And Polishing Laborer Name Role Phone Katia Stone PA-C Primary Care Provider +1- [phone] Reason for Visit * Reason Onset Date Comments Discuss Possible Transfer 06/20/2021 Encounter Details Date Type Department Care Team (Late st Contact Info) Description 06/20/2021 Telephone [facility] [address] [place], [place] [phone] Amos Romero MD [address] [address] Discuss Possible Transfer Social History [...] 06/20/2021 1415 EDT PPS Call Requesting Facility: [facility] Requesting Provider: Dr. Alegria Date: 06/20/21 [...] effusion (per read from imaging 08/08/20 from [facility], this is chronic) and R iliac [...] on filedocumented in this encounter Care Teams Grinding And Polishing Laborer Relationship Specialty Start Date End Date Katia Stone, PABijalC [address] [place] [phone] PCP - General 05/02/17 documented as of this encounter
--- OUTSIDE RECORDS SUMMARY | 2023-12-23 09:34 | XMS_ITS | Encounter Summary ---
Author Organization [facility] Address [address] [place] [address] Care Team Providers Care Inspector Machined Parts Name Role Phone Katia Stone PA-C Primary Care Provider +1- [phone] Reason for Visit * Reason Comments Diarrhea Extremity Weakness Alcohol Problem Palliative Care Symptom Management Encounter Details Date Type Department Care Team (Late st Contact Info) Description 08/25/2020 External Contact [facility] [address] [place], [place] [address] Keara Stinson MD 111 [facility] [address] [place] [address] Frailty (Primary Dx); ETOH abuse; [...] chronic ETOH use who was admitted to [facility] with weakness, diarrhea, and regular ETOH consumption. His acute issues have resolved though he remains deconditioned and ambivalent about participating in rehabilitative efforts. Palliative care consulted to provide support for chronic serious illness and advance care planning. Tmi has significant and complicated grief which was [...] be receptive to formal psychotherapy. A bereavement senior visual designer through [facility] may be a good fit as well. Re: his advance directive. 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 Present for Visit: Tim, [...] his heart attack and was transferred to [place]. He has had several cardiac issues since. He is originally from [place] and lived in the [place] area until 2018 when his medical issues became more acute. Since then, he has lived in [place] [facility], had lived with his son Tyrese until his and more recently living with Tyrese's partner Whitney. He was raised on a farm in [place] with 7 siblings. He farmed himself, [...] specialist documented in this encounter Care Teams Inspector Machined Parts Relationship Specialty Start Date End Date Katia Stone, BELLAC [address] [place] [address] PCP - General 05/02/17 documented as of this encounter
--- OUTSIDE RECORDS SUMMARY | 2023-12-23 09:34 | XMS_ITS | Encounter Summary ---
Author Organization [facility] Address [address] [place] [address] Care Team Providers Care Crown Buffer Name Role Phone Katia Stone PA-C Primary Care Provider +1- [phone] Encounter Details Date Type Department Care Team (Late st Contact Info) Description 09/26/2020 Results Only [facility] [phone] Rowan Abad, TAIWO [address] [place] [phone] Social History Tobacco Use Types Packs/Day [...] GA S ORDERABLES [facility] [address] [place] [address] * (ABNORMAL) BASIC METABOLIC PANEL (BMP) (09/26/2020 [...] [place] Co de Phone Number [facility] [address] [place] [address] * (ABNORMAL) COMPLETE BLOOD COUNT AND DIFFERENTIAL [...] 3 EDT 09/26/2020 14:54 EDT Rowan Abad LOGISTICIAN PACKAGES & DNA PROBE ORDERABLES [facility] [address] [place] [address] documented in this encounter Visit Diagnoses Not on filedocumented in this encounter Care Teams Crown Buffer Relationship Specialty Start Date End Date Katia Stone, BELLAC [address] [place] [phone] PCP - General 05/02/17 documented as of this encounter
--- OUTSIDE RECORDS SUMMARY | 2023-12-23 09:34 | XMS_ITS | Encounter Summary ---
Author Organization [facility] Address [address] [place] [address] Care Team Providers Care Carpenter Repairer Name Role Phone Katia Stone PA-C Primary Care Provider +1- [phone] Encounter Details Date Type Department Care Team (Late st Contact Info) Description 08/09/2020 Results Only Imaging [facility] Results [address] [place], [place] [address] Ester Valerio MD [address] [place] [address] [place] [address] Social History Tobacco Use Types [...] 8:33 EDT Narrative 08/09/2020 16:38 EDT ?[facility]: [facility] ?[address] ?[place] [address] ?Diagnostic Imaging Report ? Signed ? Patient Name:DAVID FARFAN ? Date of :1950 ?MR Number:[id number] ? Age:69 ?Sex:M ? Category: CR ?Date [...] Procedure Note Poncho Erickson MD - [facility] [address] [address] Diagnostic Imaging Report Signed Patient Name:DAVID FARFAN FAccount Number:[id number] Date of :1950 MRNumber:[id number] Age:69 Sex:M Category: CR Date ofExam:08/09/20 Procedure: CR: Abd; 2 ViewsAccession: [id number] Ordering Physician: Ester Valerio MD Patient CC: [...] documented as of this encounter Care Teams Carpenter Repairer Relationship Specialty Start Date End Date Katia Stone PA-C [address] [place] [address] PCP - General 05/02/17 documented as of this encounter
--- OUTSIDE RECORDS SUMMARY | 2023-12-23 09:34 | XMS_ITS | Encounter Summary ---
Author Organization [facility] Address [address] [place] [address] Care Team Providers Care Lockstitch Sleeve Maker Name Role Phone Katia Stone PA-C Primary Care Provider +1- [phone] Encounter Details Date Type Department Care Team (Late st Contact Info) Description 08/19/2020 Results Only [facility] [address] [place] [address] Junior Ray MD [address] [place] [address] Social History Tobacco Use Types [...] G ORDERABLES [facility] [address] [place] [address] documented in this encounter Visit Diagnoses Not on filedocumented in this encounter Care Teams Lockstitch Sleeve Maker Relationship Specialty Start Date End Date Katia Stone, PABijalC [address] [facility] [place] [facility] [place] [phone] PCP - General 05/02/17 documented as of this encounter
--- OUTSIDE RECORDS SUMMARY | 2023-12-23 09:34 | XMS_ITS | Encounter Summary ---
Author Organization [facility] Address [address] [place] [address] Care Team Providers Care Screen Room Operator Name Role Phone Katia Stone PA-C Primary Care Provider +1- [phone] Encounter Details Date Type Department Care Team (Late st Contact Info) Description 08/25/2020 Results Only [facility] [phone] Rowan Abad, TAIWO [address] [place] [phone] Social History Tobacco Use Types Packs/Day [...] Diagnosis Comments ORGANISM ID FROM PLATE - [facility] Routine 08/25/2020 14:15 EDT HSV (HERPES [...] No bacteria seen SWATI RESULTS/ORGANISM ID - [facility] Few Usual skin jesi 08/27/2020 17:20 EDT [facility] Comment: Spec Description ?? Additional Information:: LEFT ARM Source:ARM Test [place] [address] 08/25/2020 14:1 5 EDT 08/25/2020 14:34 EDT Narrative [facility] - 08/27/2020 17:20 EDT ARM LEFT ARM Rowan Abad NP MICROBIOLOGY - GENER AL ORDERABLES [facility] [address] [place] [address] * HERPES SIMPLEX VIRUS MOLECULAR DETECTION, PCR (08/25/2020 14:15 EDT) HERPES SIMPLEX VIRUS I DNA - PMC Negative Negative 08/26/2020 17:21 EDT [facility] HERPES SIMPLEX VIRUS 2 DNA - PMC Negative Negative 08/26/2020 19:39 EDT [facility] Comment: SOURCE:: ARM Spec Description ?? Additional Information:: LEFT ARM Source:LEFT ARM Test [place] [address] 08/25/2020 14:1 5 EDT 08/25/2020 14:35 EDT [facility] - 08/26/2020 19:39 EDT ARM LEFT ARM Rowan Abad NP MICROBIOLOGY - GENER AL ORDERABLES Performing Organization Address [facility] Co de Phone Number [facility] [address] [place] [address] * (ABNORMAL) CREATININE WITH GFR - PM[facility] [...] [facility]/ZIP Co de Phone Number [facility] [address] [place] [address] * PLATELET COUNT (08/25/2020 6:09 EDT) [facility] PLATELET COUNT - [facility] 326 150 - 450 10 3/uL 08/25/2020 7:02 EDT [facility] 08/25/2020 6:09 EDT 08/25/2020 6:44 EDT [facility] - 08/25/2020 7:06 EDT Comment ENOXAPARIN MONITORING Rowan Abad EYE GLASS FRAME POLISHER HEMATOLOGY & PF4 ORD ERABLES [facility] [address] [place] [address] documented in this encounter Visit Diagnoses Not on filedocumented in this encounter Care Teams Screen Room Operator Relationship Specialty Start Date End Date Katia Stone, MINGO [address] [facility] [place] [facility] [place] [phone] PCP - General 05/02/17 documented as of this encounter
--- OUTSIDE RECORDS SUMMARY | 2023-12-23 09:34 | XMS_ITS | Encounter Summary ---
Author Organization [facility] Address [address] [place] [address] Care Team Providers Care Apartment Rental Clerk Name Role Phone Katia Stone PA-C Primary Care Provider +1- [phone] Encounter Details Date Type Department Care Team (Late st Contact Info) Description 09/15/2020 Results Only [facility] [address] [place] [address] Junior Ray MD [address] [place] [address] Social History Tobacco Use Types [...] OR DERABLES [facility] [address] [place] [address] documented in this encounter Visit Diagnoses Not on filedocumented in this encounter Care Teams Apartment Rental Clerk Relationship Specialty Start Date End Date Katia Stone, PABijalC [address] [place] [phone] PCP - General 05/02/17 documented as of this encounter
--- OUTSIDE RECORDS SUMMARY | 2023-12-23 09:34 | XMS_ITS | Encounter Summary ---
Author Organization [facility] Address [address] [place] [address] Care Team Providers Care Outreach Specialist Name Role Phone Katia Stone PA-C Primary Care Provider +1- [phone] Encounter Details Date Type Department Care Team (Late st Contact Info) Description 08/18/2020 Results Only [facility] [address] [place] [address] Junior Ray MD [address] [place] [address] Social History Tobacco Use Types [...] 138 136 - 145 mEq/L 08/18/2020 5:47 [facility] Potassium 3.3(L) 3.5 - 5.1 mEq/L 08/18/2020 5:47 [facility] Chloride 101 96 - 107 mEq/L 08/18/2020 5:47 [facility] CO2 Total 31.3 21 - 32 mEq/L 08/18/2020 5:47 [facility] Anion Gap 5.7 mEq/L 08/18/2020 5:47 [facility] BUN 9 7 - 25 mg/dl 08/18/2020 5:47 [facility] Creatinine 0.66(L) 0.70 - 1.30 mg/dl 08/18/2020 5:47 [facility] Estimated GFR >60 >60 08/18/2020 5:47 [facility] Comment: EGFR UNITS: mL/min/1.73 m 2 CKD-EPI Equation used to calculate. Glucose 86 74 - 106 mg/dl 08/18/2020 5:47 [facility] Calcium 8.0(L) 8.5 - 10.1 mg/dl 08/18/2020 5:47 [facility] 08/18/2020 5:15 EDT 08/18/2020 5:27 EDT Junior Ray MD CHEMISTRY & BLOOD G ORDERABLES Performing Organization Address City/[facility]/ZIP Co de Phone Number [facility] [address] [place] [address] * (ABNORMAL) COMPLETE BLOOD COUNT (08/18/2020 5:15 EDT) WBC 5.2 4.0 - 10.5 10 3/uL 08/18/2020 5:41 [facility] RBC 2.68(L) 4.70 - 6.00 10 6/uL 08/18/2020 5:41 [facility] Hemoglobin 9.4(L) 13.5 - 18.0 g/dL 08/18/2020 5:41 [facility] HCT 27.5(L) 42.0 - 52.0 % 08/18/2020 5:41 [facility] MCV 102.6(H) 78 - 100 fL 08/18/2020 5:41 [facility] MCH 35.1(H) 27 - 31 pg 08/18/2020 5:41 [facility] MCHC 34.2 32 - 37 g/dL 08/18/2020 5:41 [facility] RDW-CV - PMC 15.2(H) <14.7 % 08/18/2020 5:41 [facility] PLATELET COUNT - PMC 233 150 - 450 10 3/uL 08/18/2020 5:41 [facility] MPV 10.3 9.2 - 12.0 fL 08/18/2020 5:41 [facility] 08/18/2020 5:15 EDT 08/18/2020 5:27 EDT Junior Ray MD HEMATOLOGY & PF4 OR DERABLES Performing Organization Address City/[facility]/ZIP Co de Phone Number [facility] [address] [place] [address] documented in this encounter Visit Diagnoses Not on filedocumented in this encounter Care Teams Outreach Specialist Relationship Specialty Start Date End Date Katia Stone, PABijalC [address] [place] [phone] PCP - General 05/02/17 documented as of this encounter
--- OUTSIDE RECORDS SUMMARY | 2023-12-23 09:34 | XMS_ITS | Encounter Summary ---
Author Organization [facility] Address [address] [place] [address] Care Team Providers Care Lacquer Pin Press Operator Name Role Phone Katia Stone PA-C Primary Care Provider +1- [phone] Encounter Details Date Type Department Care Team (Late st Contact Info) Description 08/20/2020 Results Only [facility] [address] [place] [address] Junior Ray MD [address] [place] [address] Social History Tobacco Use Types [...] G ORDERABLES [facility] [address] [place] [address] * (ABNORMAL) BASIC METABOLIC PANEL (BMP) (08/20/2020 [...] G ORDERABLES [facility] [address] [place] [address] * (ABNORMAL) COMPLETE BLOOD COUNT (08/20/2020 6:50 [...] OR DERABLES [facility] [address] [place] [address] documented in this encounter Visit Diagnoses Not on filedocumented in this encounter Care Teams Lacquer Pin Press Operator Relationship Specialty Start Date End Date Katia Stone, PABijalC [address] [place] [phone] PCP - General 05/02/17 documented as of this encounter
--- OUTSIDE RECORDS SUMMARY | 2023-12-23 09:34 | XMS_ITS | Encounter Summary ---
Author Organization [facility] Address [address] [place] [address] Care Team Providers Care Sap Basis Consultant Name Role Phone Katia Stone PA-C Primary Care Provider +1- [phone] Encounter Details Date Type Department Care Team (Late st Contact Info) Description 08/11/2020 Results Only [facility] [address] [place] [address] Jayesh Olmos MD [address] [place] [address] Social History Tobacco Use Types [...] infection. Test performed [place] [address] 08/11/2020 14:5 0 EDT 08/12/2020 14:54 EDT Narrative [facility] - 08/14/2020 15:34 EDT stool Jayesh Olmos MD MICROBIOLOGY - GENERAL ORDERABLES [facility] [address] [place] [address] * FECAL BACTERIAL PATHOGENS BY PCR (08/11/2020 [...] Comment: Test performed or referred by The [address] [address] 08/11/2020 14:5 0 EDT 08/12/2020 14:53 EDT Jayesh Olmos MD MICROBIOLOGY - GENERAL ORDERABLES Performing Organization Address City/State/[facility] Co de Phone Number [facility] [address] [place] [address] documented in this encounter Visit Diagnoses Not on filedocumented in this encounter Care Teams Sap Basis Consultant Relationship Specialty Start Date End Date Katia Stone, BELLAC [address] [place] [address] PCP - General 05/02/17 documented as of this encounter
--- OUTSIDE RECORDS SUMMARY | 2023-12-23 09:34 | XMS_ITS | Encounter Summary ---
Author Organization [facility] Address [address] [place] [address] Care Team Providers Care Automotive Salesperson Name Role Phone Katia Stone PA-C Primary Care Provider +1- [phone] Encounter Details Date Type Department Care Team (Late st Contact Info) Description 09/02/2020 Results Only [facility] [phone] Rowan Abad, TAIWO [address] [place] [address] Social History Tobacco Use Types Packs/Day [...] BLOOD GA S ORDERABLES Performing Organization Address City/[facility]/ZIP Co de Phone Number [facility] [address] [place] [address] * PLATELET COUNT (09/02/2020 6:18 EDT) PLATELET COUNT - [facility] 247 150 - 450 10 3/uL 09/02/2020 6:57 EDT [facility] 09/02/2020 6:18 EDT 09/02/2020 6:44 EDT Narrative [facility] - 09/02/2020 7:06 EDT Comment [employer] MONITOR[employer] Rowan Abad NP HEMATOLOGY & PF4 ORD ERABLES [facility] [address] [place] [address] documented in this encounter Visit Diagnoses Not on filedocumented in this encounter Care Teams Automotive Salesperson Relationship Specialty Start Date End Date Katia Stone, MINGO [address] [place] [address] PCP - General 05/02/17 documented as of this encounter
--- OUTSIDE RECORDS SUMMARY | 2023-12-23 09:34 | XMS_ITS | Encounter Summary ---
Author Organization [facility] Address [address] [place] [address] Care Team Providers Care Longwall Shearer Operator Name Role Phone Katia Stone PA-C Primary Care Provider +1- [phone] Encounter Details Date Type Department Care Team (Late st Contact Info) Description 08/08/2020 Results Only [facility] Dermatology - [facility] [place] [address] [place] [address] Virginia Quintana MD [address] [place] [address] Social History Tobacco Use Types Packs/Day Years [...] Requests ADD ON DONE 08/08/2020 21:57 EDT [facility] Comment: All tests (see tests in sample comments) have been added as requested. 08/08/2020 21:1 7 EDT 08/08/2020 21:57 EDT Narrative [facility] - 08/08/2020 21:57 EDT ED this evening Mg Virginia Quintana MD CHEMISTRY & BLOOD GA S ORDERABLES Performing Organization Address [facility] Co de Phone Number [facility] [address] [place] [address] * (ABNORMAL) MAGNESIUM (08/08/2020 16:47 EDT) Magnesium 1.7(L) 1.8 - 2.4 mg/dl 08/08/2020 22:02 EDT [facility] 08/08/2020 16:4 7 EDT 08/08/2020 16:52 EDT Virginia Quintana MD CHEMISTRY & BLOOD GA S ORDERABLES Performing Organization Address [facility] Co de Phone Number [facility] [address] [place] [address] documented in this encounter Visit Diagnoses Not on filedocumented in this encounter Care Teams Longwall Shearer Operator Relationship Specialty Start Date End Date Katia Stoen, PABijalC [address] [place] [phone] PCP - General 05/02/17 documented as of this encounter
--- OUTSIDE RECORDS SUMMARY | 2023-12-23 09:34 | XMS_ITS | Encounter Summary ---
Author Organization [facility] Address [address] [place] [address] Care Team Providers Care Cook At School Name Role Phone Katia Stone PA-C Primary Care Provider +1- [phone] Encounter Details Date Type Department Care Team (Late st Contact Info) Description 08/08/2020 Results Only [facility] Radiology Results [address] [place] [id number] Tony Christy MD [address] [place] [address] Social History Tobacco Use Types [...] 15:3 6 EDT Narrative 08/08/2020 15:36 EDT ?[facility] ?[address] ?[place] [address] ?Diagnostic Imaging Report ? Signed ? Patient Name:DAVID FARFAN ? Date of :1950 ?MR Number:[id number] ? Age:69 ?Sex:M ? Category: CR ?Date [...] questions regarding this report, please contact the [facility] at [phone] ? Dictated by: Temo Son MD ?D/ 15 ?? 36 ?? Transcribed by: SSOMROV ?D/T: ? E-Signed by: Temo Son MD ?D/ 19 ?? 38 ?? Procedure Note Temo Son MD - 08/08/2020 [facility] [address] [address] Diagnostic Imaging Report Signed Patient Name:DAVID FARFAN FAccount Number:[id number] Date of :1950 MRNumber:[id number] Age:69 Sex:M Category: CR Date ofExam:08/08/20 Procedure: CR: Chest; Frontal/LAT viewsAccession: [id number] Ordering Physician: Tony Christy MD Patient [...] regarding this report, please contact the [facility] at [phone] Dictated by: Temo Son MDD/ 15 36 Transcribed by: SSOMROVD/T: E-Signed by: Temo Son MDD/ 19 38 Tony Christy MD IMG DIAGNOSTIC DAWIT GING ORDERABLES * CT ABDOMEN PELVIS W CONTRAST (08/08/2020 15:36 EDT) Anatomical Region Laterality Modality Body, Abdomen, Pelvis, Abdomen and Pelvis Computed Tomography 08/08/2020 15:3 6 EDT Narrative 08/08/2020 15:36 EDT ?[facility]: [facility] ?[address] ?[place], [place] [address] ?Diagnostic Imaging Report ? Signed ? Patient Name:ADOLPH,DAVID Martinez ? Date of :1950 ?MR Number:[id number] ? Age:69 ?Sex:M ? Category: CT ?Date [...] please contact the [facility] at [phone] ? Dictated by: Temo Son MD ?D/ 15 ?? 36 ?? Transcribed by: DEBRA ?D/T: ? E-Signed by: Temo Son MD ?D/ 19 ?? 36 ?? Procedure Note Temo Son MD - 08/08/2020 [facility]: [address] [address] Diagnostic Imaging Report Signed Patient Name:DAVID FARFAN FAccount Number:[id number] Date of :1950 MRNumber:[id number] Age:69 Sex:M Category: CT Date ofExam:08/08/20 Procedure: CT: Abd Pelvis; wit cntrstAccession: [id number] Ordering Physician: Tony Christy MD Patient [...] regarding this report, please contact the [facility] at [phone] Dictated by: Temo Son MDD/ 15 36 Transcribed by: PRADEEPVD/T: E-Signed by: Temo Son MDD/ 19 36 Tony Christy MD IMG CT ORDERABLES documented in this encounter Visit Diagnoses Not on filedocumented in this encounter Additional Health Concerns Infection Onset Date Last Indicated Resolved Time RSV 01/31/2022 01/31/2022 02/10/2022 22:1 5 EST documented as of this encounter Care Teams Cook At School Relationship Specialty Start Date End Date Katia Stone, PA-C [address] [place] [phone] PCP - General 05/02/17 documented as of this encounter
--- OUTSIDE RECORDS SUMMARY | 2023-12-23 09:35 | XMS_ITS | Encounter Summary ---
Author Organization [facility] Address [address] [place] [address] Care Team Providers Care Profiling Machine Set Up Operator Tool Name Role Phone Katia Stone PA-C Primary Care Provider +1- [phone] Encounter Details Date Type Department Care Team (Late st Contact Info) Description 01/15/2020 Results Only [facility] [address] [place] [address] Unknown, Provider, Social History Tobacco Use Types [...] 136 - 145 mEq/L 01/15/2020 0:[address] [facility] 01/15/2020 0:18 EST 01/15/2020 0:20 EST Provider Unknown CHEMISTRY & BLOOD GA S ORDERABLES Performing Organization Address City/State/[facility] Co de Phone Number [facility] [address] [place] [address] documented in this encounter Visit Diagnoses Not on filedocumented in this encounter Care Teams Profiling Machine Set Up Operator Tool Relationship Specialty Start Date End Date Katia Stone, PABijalC [address] [place] [phone] PCP - General 05/02/17 documented as of this encounter
--- OUTSIDE RECORDS SUMMARY | 2023-12-23 09:35 | XMS_ITS | Encounter Summary ---
Author Organization [facility] Address [address] [place] [address] Care Team Providers Care Laser Engraver Name Role Phone Katia Stone PA-C Primary Care Provider +1- [phone] Reason for Visit * Reason Onset Date Comments Other 06/21/2020 patient wants to cancel surgery Encounter Details Date Type Department Care Team (Late st Contact Info) Description 06/21/2020 Telephone [facility] Cardiothoracic Surgery - [facility] [address] [place] [address] Ja Browne MD [address] [place], [place] [phone] Other (patient wants to cancel surgery) Social [...] with (Whitney). Pt was called by his Cinder Crew Worker on 06/21 x 2 and finally Maru Villalobos the Cinder Crew Worker sent the State Police to his house per Maru to do a welfare check as he doesn't follow instructions or return calls per Maru. He didn't go fora covid test and the ride was set up for him by Maru Cinder Crew Worker and he cancelled it. He states he [...] Melania Dumas - 06/21/2020 1350 EDT Nila (Kelly Machine Operator) from [facility] calling to advise that patient wants to cancel surgery on Friday06/26/2020 as he believes he has pneumonia. Per Nila, patient has not been seen by anyone and declinedcalling ambulance to take him to ED. documented in this encounter Plan of Treatment Not on file documented as of this encounter Visit Diagnoses Not on filedocumented in this encounter Care Teams Laser Engraver Relationship Specialty Start Date End Date Katia Stone, MINGO [address] [place] [address] PCP - General 05/02/17 documented as of this encounter
--- OUTSIDE RECORDS SUMMARY | 2023-12-23 09:35 | XMS_ITS | Encounter Summary ---
Author Organization [facility] Address [address] [place] [address] Care Team Providers Care Cabin Cleaning Supervisor Name Role Phone Katia Stone PA-C Primary Care Provider +1- [phone] Encounter Details Date Type Department Care Team [...] on filedocumented in this encounter Care Teams Cabin Cleaning Supervisor Relationship Specialty Start Date End Date Katia Stone, MINGO [address] [place] [phone] PCP - General 05/02/17 documented as of this encounter
--- OUTSIDE RECORDS SUMMARY | 2023-12-23 09:35 | XMS_ITS | Encounter Summary ---
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, initial encounter Procedures XR CHEST 2 VIEWS José Miguel Roca PA-C [address] [place] [phone] Referral ID Status Reason Start Date Expiration Date Visits Re quested Visits Authorized [id number] Closed 05/16/2020 1 1 Reason for Visit * Radiology Services (Routine) - Closed Specialty Diagnoses / Procedures Referred By Jael ho Referred To Contact Diagnoses 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, initial encounter Procedures XR CHEST 2 VIEWS José Miguel Roca PA-C [address] [address] Referral ID Status Reason Start Date Expiration Date Visits Re quested Visits Authorized [id number] Closed 05/16/2020 1 1 Encounter Details Date Type Department Care Team (Latest Contact Info) Description 05/16/2020 10:57 EDT - 05/16/2020 23:59 EDT [facility] Radiology Xray Outpatient - [address] [address] 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, [...] encounter documented in this encounter Care Teams Film Librarian Relationship Specialty Start Date End Date Katia Stone PA-C [address] [place] [phone] PCP - General 05/02/17 documented as of this encounter
--- OUTSIDE RECORDS SUMMARY | 2023-12-23 09:35 | XMS_ITS | Encounter Summary ---
Author Organization [facility] Address [address] [place] [address] Care Team Providers Care Circuit Manager Name Role Phone Katia Stone PA-C Primary Care Provider +1- [phone] Reason for Visit * Reason Onset Date Comments Coordination Of Care 04/19/2020 Returning Call 04/20/2020 Encounter Details Date Type Department Care Team (Late st Contact Info) Description 04/19/2020 Telephone [facility] Cardiology - [address] [place], [place] [phone] Tony Rosenberg MD [address] [place] [address] [address] [place] [address] Coordination Of Care; Returning Call [...] Adam Ordoñez - 04/20/2020 1508 EST Patient's family independence case manager returning call to Belinda. Please call. * Telephone Encounter - Belinda Falk RN - 04/20/2020 1457 EST Call placed to family independence case manager regarding patient unable to reach by phone. Message left on voice mail to call office back with call back number [phone]. * Telephone Encounter - Conner Mccall - 04/19/2020 1118 EST Reason for Call: Coordination Of Care Summary/Symptoms: Maru patients Antique Furniture Restorer reaching out to get more information on [...] on filedocumented in this encounter Care Teams Circuit Manager Relationship Specialty Start Date End Date Katia Stone PA-C [address] [place] [phone] PCP - General 05/02/17 documented as of this encounter
--- OUTSIDE RECORDS SUMMARY | 2023-12-23 09:35 | XMS_ITS | Encounter Summary ---
Author Organization [facility] Address [address] [place] [address] Care Team Providers Care General Assembler Name Role Phone Katia Stone PA-C Primary Care Provider +1- [phone] Reason for Visit * Reason Comments Arrhythmia Encounter Details Date Type Department Care Team (Late st Contact Info) Description 10/13/2019 16:00 EDT Office Visit [facility] Cardiology [address] [address] Tony Rosenberg MD [address] [place] [phone] Heart block AV third degree (HCC-CMS) [...] file Gets together: Not on file Attends mormonism service: Not on file Active member of [...] complete documented in this encounter Care Teams General Assembler Relationship Specialty Start Date End Date Katia Stone, PABijalC [address] [place] [phone] PCP - General 05/02/17 documented as of this encounter
--- OUTSIDE RECORDS SUMMARY | 2023-12-23 09:35 | XMS_ITS | Encounter Summary ---
Author Organization [facility] Address [address] [place] [address] Care Team Providers Care Program Writer Name Role Phone Katia Stone PA-C Primary Care Provider +1- [phone] Encounter Details Date Type Department Care Team (Latest Contact Info) Description 06/19/2020 16:00 EDT - 06/19/2020 23:59 EDT Hospital Encounter [facility] Pre-Surgical Testing [address] [place] [address] Discharge Disposition: Home or Self Care Social [...] - to be organized by his case checker Nila Villalobos. Pt refused to listen to instructions for surgery states I am waiting for the paper work that tells me what meds to take. This RN spoke with Cat Sutherland wedger to discuss above. Cat to call pt tomorrow to confirm informations on medications as well as instructions otherwise. She will also contact director case to confirm ride. documented in this encounter Plan of Treatment Not on file documented as of this encounter Visit Diagnoses Not on filedocumented in this encounter Care Teams Program Writer Relationship Specialty Start Date End Date Katia Stone, PABijalC [address] [place] [phone] PCP - General 05/02/17 documented as of this encounter
--- OUTSIDE RECORDS SUMMARY | 2023-12-23 09:35 | XMS_ITS | Encounter Summary ---
Author Organization [facility] Address [address] [place] [address] Care Team Providers Care Cda Teacher Name Role Phone Katia Stone PA-C Primary Care Provider +1- [phone] Reason for Visit * Reason Onset Date Comments Follow-up 12/23/2019 TE 11/02 Encounter Details Date Type Department Care Team (Late st Contact Info) Description 12/23/2019 Telephone [facility] Cardiology - [address] [place], [place] [phone] Tony Rosenberg MD [address] [place] [address] [address] [place] [address] Follow-up (TE 11/02) Social History [...] on filedocumented in this encounter Care Teams Cda Teacher Relationship Specialty Start Date End Date Katia Stone, PABijalC [address] [place] [phone] PCP - General 05/02/17 documented as of this encounter
--- OUTSIDE RECORDS SUMMARY | 2023-12-23 09:35 | XMS_ITS | Encounter Summary ---
Author Organization [facility] Address [address] [place] [address] Care Team Providers Care Rodent Exterminator Name Role Phone Katia Stone PA-C Primary Care Provider +1- [phone] Encounter Details Date Type Department Care Team (Late st Contact Info) Description 01/17/2020 Results Only [facility] [phone] Jayesh Olmos MD [address] [place] [phone] Social [...] ? 11 ?mcg/dL ??7-25 Test Performed by: [facility] [address] [place] [address] Field Marketing Associate: Pierre Andersen M.D. Ph.D.; CLIA# [id number] 01/17/2020 7:50 EST 01/17/2020 7:51 EST Jayesh Olmos MD CHEMISTRY & BLO OD GAS ORDERABLES [facility] [address] [place] [address] * (ABNORMAL) BASIC METABOLIC PANEL,RANDOM - PMC (01/17/2020 7:50 EST) [facility] Sodium 130(L) 136 - 145 mEq/L 01/17/2020 8:13 [facility] Potassium 3.7 3.5 - 5.1 mEq/L 01/17/2020 8:13 [facility] Chloride 95(L) 96 - 107 mEq/L 01/17/2020 8:13 [facility] CO2 Total 27.4 21 - 32 mEq/L 01/17/2020 8:13 [facility] Anion Gap 7.6 mEq/L 01/17/2020 8:13 [facility] BUN 10 7 - 25 mg/dl 01/17/2020 8:13 [facility] Creatinine 0.62(L) 0.70 - 1.30 mg/dl 01/17/2020 8:13 [facility] Estimated GFR >60 >60 01/17/2020 8:18 [facility] Comment: EGFR UNITS: mL/min/1.73 m 2 CKD-EPI Equation used to calculate. Glucose 91 70 - 180 mg/dl 01/17/2020 8:13 [facility] Calcium 8.4(L) 8.5 - 10.1 mg/dl 01/17/2020 8:13 [facility] 01/17/2020 7:50 EST 01/17/2020 7:51 EST Jayesh Omlos MD CHEMISTRY & BLO OD GAS ORDERABLES Performing Organization Address City/State/[facility] Co de Phone Number [facility] [address] [place] [address] documented in this encounter Visit Diagnoses Not on filedocumented in this encounter Care Teams Rodent Exterminator Relationship Specialty Start Date End Date Katia Stone PABijalC [address] [facility] [place] [address] PCP - General 05/02/17 documented as of this encounter
--- OUTSIDE RECORDS SUMMARY | 2023-12-23 09:35 | XMS_ITS | Encounter Summary ---
Author Organization [facility] Address [address] [place] [address] Care Team Providers Care Tinsel Machine Operator Name Role Phone Katia Stone PA-C Primary Care Provider +1- [phone] Reason for Visit * Reason Onset Date Comments Other 11/03/2019 pacemaker proble m Encounter Details Date Type Department Care Team (Late st Contact Info) Description 11/03/2019 Telephone [facility] Cardiology - [address] [place] [address] Tony Rosenberg MD [facility] [place] [address] [place] [address] Other (pacemaker problem) Social History [...] Dr. Rosenberg. Needs to be done at [facility] when we have the lead extraction program up and running. Will keep you posted. JW Nila expressed understanding, she mentioned patient is anxious and would like to have more information regarding next steps. * Telephone Encounter - Marilyn Escoto - 11/03/2019 1017 EDT Spoke with Nila at [facility], she is wondering about update in regards to plan for lead revision. Nila asks for an update you can reach her at [phone] extension [phone] Please advise * Telephone Encounter - Jada Ochoa - 11/03/2019 1015 EDT Patient's pacemaker has been shocking him. documented in this encounter Plan of Treatment Not on file documented as of this encounter Visit Diagnoses Not on filedocumented in this encounter Care Teams Tinsel Machine Operator Relationship Specialty Start Date End Date Katia Stone PA-C [address] [place] [address] PCP - General 05/02/17 documented as of this encounter
--- OUTSIDE RECORDS SUMMARY | 2023-12-23 09:35 | XMS_ITS | Encounter Summary ---
Author Organization [facility] Address [address] [place] [address] Care Team Providers Care Radiology Tech Name Role Phone Katia Stone PA-C Primary Care Provider +1- [phone] Encounter Details Date Type Department Care Team (Late st Contact Info) Description 01/16/2020 Results Only Imaging [facility] Radiology Results [address] [place] [address] Jayesh Olmos MD [address] [place] [address] Social History Tobacco Use Types [...] 13:1 9 EST Narrative 01/16/2020 13:19 EST ?[facility] ?[address] ?[place] [address] ?Diagnostic Imaging Report ? Signed ? Patient Name:DAVID FARFAN ? Date of :1950 ?MR Number:[id number] ? Age:69 ?Sex:M ? Category: CT ?Date of Exam:01/16/20 ? Procedure: CT: Thorax; with contrast ? Ordering Physician: Nickolas ([facility])Jayesh MD ?Patient ? CC: ?? Emeterio Wynne MD ?? Jayesh Olmos MD ([facility]) ?? Katia Mccallum ? PROCEDURE INFORMATION: ?? [...] questions regarding this report, please contact the [facility] at [phone] ? Dictated by: Brenda Dixon MD ?D/ ?? 1319 ?? Transcribed by: SERGEY ?D/T: ? E-Signed by: Brenda Dixon MD ?D/ ?? 1528 ?? Procedure Note Brenda Dixon MD - 02/01/2020 UVN: [address] [address] Diagnostic Imaging Report Signed Patient Name:DAVID FARFAN FAccount Number:[id number] Date of :1950 MRNumber:[id number] Age:69 Sex:M Category: CT Date ofExam:01/16/20 Procedure: CT: Thorax; with contrastAccession: [id number] Ordering Physician: Nickolas ([facility])Jayesh MD Patient CC: Emeterio Wynne MD, Michael MD ([facility]) Katia Mccallum PROCEDURE INFORMATION: Exam: CT Chest [...] Pleural space: Loculated left pleural effusion posterolaterally [id number] by 5.4 cm in greatest transverse dimension. [...] regarding this report, please contact the [facility] at [phone] Dictated by: Brenda Dixon MDD/ 1319 Transcribed by: ANA/T: E-Signed by: Brenda Dixon MDD/ 1528 Jayesh Olmos MD IMG CT ORDERABL ES * XR CHEST 2 VIEWS (01/16/2020 9:51 EST) Anatomical Region Laterality Modality Computed Radiogr aphy 01/16/2020 9:51 EST Narrative 01/16/2020 9:51 EST ?[facility] ?[address] ?[place] [address] ?Diagnostic Imaging Report ? Signed ? Patient Name:DAVID FARFAN ? Date of :1950 ?MR Number:[id number] ? Age:69 ?Sex:M ? Category: CR ?Date of Exam:11/15/20 ? Procedure: CR: Chest; Frontal/LAT views ? 923 ? Ordering Physician: Nickolas ([facility]),Jayesh Coburn MD ?Patient ? CC: ?? Emeterio Wynne MD ?? Jayesh Olmos MD ([facility]) ?? Katia Mccallum ? PROCEDURE INFORMATION: ?? [...] questions regarding this report, please contact the [facility] at [phone] ? Dictated by: Brenda Dixon MD ?D/ ?? 0951 ?? Transcribed by: SERGEY ?D/T: ? E-Signed by: Brenda Dixon MD ?D/ ?? 1121 ?? Procedure Note Brenda Dixon MD - 02/01/2020 [facility]N: [address] [address] Diagnostic Imaging Report Signed Patient Name:DAVID FARFAN FAccount Number:[id number] Date of :1950 MRNumber:[id number] Age:69 Sex:M Category: CR Date ofExam:01/16/20 Procedure: CR: Chest; Frontal/LAT viewsAccession: [id number] Ordering Physician: Nickolas ([facility])Jayesh MD Patient CC: Emeterio Wynne MD, Michael MD ([facility]) Katia Mccallum PROCEDURE INFORMATION: Exam: XR Chest, [...] regarding this report, please contact the [facility] at [phone] Dictated by: Brenda Dixon/ 0951 Transcribed by: ANA/T: E-Signed by: Brenda Dixon MDD/ 1121 Jayesh Olmos MD IMG DIAGNOSTIC IMAGING ORDERABLES documented in this encounter Visit Diagnoses Not on filedocumented in this encounter Additional Health Concerns Infection Onset Date Last Indicated Resolved Time RSV 01/31/2022 01/31/2022 02/10/2022 22:1 5 EST documented as of this encounter Care Teams Radiology Tech Relationship Specialty Start Date End Date Katia Stone, PABijalC [address] [place] [phone] PCP - General 05/02/17 documented as of this encounter
--- OUTSIDE RECORDS SUMMARY | 2023-12-23 09:35 | XMS_ITS | Encounter Summary ---
Author Organization [facility] Address [address] [place] [address] Care Team Providers Care Orchestra Director Name Role Phone Katia Stone PA-C Primary Care Provider +1- [phone] Reason for Visit * Reason Onset Date Comments Appointment Related 06/19/2020 Encounter Details Date Type Department Care Team (Late st Contact Info) Description 06/19/2020 Telephone [facility] Cardiothoracic Surgery - [facility] [address] [place] [address] Ja Browne MD [address] [place] [phone] Appointment Related Social History Tobacco Use [...] - 06/19/2020 0858 EDT TC to Nila, Cw Operator, at patient's PCP Office. She is aware that patient has a PAT appointment today between 4:00 and 4:45 pm with an Anesthesia Nurse. Patient is scheduled for surgery on 06/26 at 12:10 pm and should arrive in the Registration Department at 10:10 am. Cw Operator states that patient has a COVID test scheduled for 06/22 at [facility]. New telephone number noted for Cw Operator is [phone]. documented in this encounter Plan of Treatment Not on file documented as of this encounter Visit Diagnoses Not on filedocumented in this encounter Care Teams Orchestra Director Relationship Specialty Start Date End Date Katia Stone PA-C [address] [place] [phone] PCP - General 05/02/17 documented as of this encounter
--- OUTSIDE RECORDS SUMMARY | 2023-12-23 09:35 | XMS_ITS | Encounter Summary ---
Author Organization [facility] Address [address] [place] [address] Care Team Providers Care Senior Quality Control Technician Name Role Phone Katia Stone PA-C Primary Care Provider +1- [phone] Reason for Visit * Reason Onset Date Comments Appointment Related 05/04/2020 Encounter Details Date Type Department Care Team (Late st Contact Info) Description 05/04/2020 Telephone [facility] Cardiothoracic Surgery - [facility] [address] [place] [address] Ja Browne MD [address] [place] [phone] Appointment Related Social History Tobacco Use [...] - 05/10/2020 0953 EST Medical records from [facility] received, scanned and book marked for [...] 05/08/2020, at 10:30 am. Fax out to [facility] and [facility] to request patient's Discharge Summary from recent hospitalization, as well as diagnostic testing, EKG, labs, etc. Await response. documented in this encounter Plan of Treatment Not on file documented as of this encounter Visit Diagnoses Not on filedocumented in this encounter Care Teams Senior Quality Control Technician Relationship Specialty Start Date End Date Katia Stone, MINGO [address] [place] [address] PCP - General 05/02/17 documented as of this encounter
--- OUTSIDE RECORDS SUMMARY | 2023-12-23 09:35 | XMS_ITS | Encounter Summary ---
Author Organization [facility] Address [address] [place] [address] Care Team Providers Care Director Of Compensation Name Role Phone Katia Stone PA-C Primary Care Provider +1- [phone] Reason for Visit * Reason Onset Date Comments Other 06/13/2020 Encounter Details Date Type Department Care Team (Late st Contact Info) Description 06/13/2020 Telephone [facility] Cardiothoracic Surgery - [address] [address] Cat Sutherland RN Other Social History Tobacco [...] for surgery at 1210 on 06/26. His Black Puller with PCP is setting up his ride for [place] on 06/26 and for his COVID test that will need to be done 3-4 days prior to surgery. Patient verbalized understanding. I called the patient's Black Puller at [facility] at [phone] ext [phone] and left her a message (Maru Villalobos, TISH). She will be arranging his ride to [place] on [address] and for his COVID test. I have updated our MECHANIC WELDER and eBulah FAIR CM at [facility] as well. documented in this encounter Plan of Treatment Not on file documented as of this encounter Visit Diagnoses Not on filedocumented in this encounter Care Teams Director Of Compensation Relationship Specialty Start Date End Date Katia Stone, BELLAC [address] [place] [phone] PCP - General 05/02/17 documented as of this encounter
--- OUTSIDE RECORDS SUMMARY | 2023-12-23 09:35 | XMS_ITS | Encounter Summary ---
Author Organization [facility] Address [address] [place] [address] Care Team Providers Care Tube Coater Name Role Phone Katia Stone PA-C Primary Care Provider +1- [phone] Encounter Details Date Type Department Care Team (Late st Contact Info) Description 01/16/2020 Results Only [facility] [address] [place] [address] Unknown, Provider, Social History Tobacco Use Types [...] 129(L) 136 - 145 mEq/L 01/16/2020 7:26 [facility] Potassium 3.8 3.5 - 5.1 mEq/L 01/16/2020 7:26 [facility] Chloride 95(L) 96 - 107 mEq/L 01/16/2020 7:26 [facility] CO2 Total 27.5 21 - 32 mEq/L 01/16/2020 7:26 [facility] Anion Gap 7.5 mEq/L 01/16/2020 7:26 [facility] BUN 10 7 - 25 mg/dl 01/16/2020 7:26 [facility] Creatinine 0.64(L) 0.70 - 1.30 mg/dl 01/16/2020 7:26 [facility] Estimated GFR >60 >60 01/16/2020 7:29 [facility] Comment: EGFR UNITS: mL/min/1.73 m 2 CKD-EPI Equation used to calculate. Glucose 91 74 - 106 mg/dl 01/16/2020 7:26 [facility] Calcium 8.4(L) 8.5 - 10.1 mg/dl 01/16/2020 7:26 [facility] 01/16/2020 7:07 EST 01/16/2020 7:09 EST Provider Unknown CHEMISTRY & BLOOD GA S ORDERABLES Performing Organization Address City/State/[facility] Co de Phone Number [facility] [address] [place] [address] documented in this encounter Visit Diagnoses Not on filedocumented in this encounter Care Teams Tube Coater Relationship Specialty Start Date End Date Katia tSone, MINGO [address] [place] [phone] PCP - General 05/02/17 documented as of this encounter
--- OUTSIDE RECORDS SUMMARY | 2023-12-23 09:35 | XMS_ITS | Encounter Summary ---
Author Organization [facility] Address [address] [place] [address] Care Team Providers Care Ware Tester Name Role Phone Katia Stone PA-C Primary Care Provider +1- [phone] Reason for Visit * Reason Onset Date Comments Appointment Related 06/22/2020 Encounter Details Date Type Department Care Team (Late st Contact Info) Description 06/22/2020 Telephone [facility] Cardiothoracic Surgery - [facility] [address] [place] [address] Ja Browne MD [address] [place] [phone] Appointment Related Social History Tobacco Use [...] on filedocumented in this encounter Care Teams Ware Tester Relationship Specialty Start Date End Date Katia Stone, BELLAC [address] [place] [phone] PCP - General 05/02/17 documented as of this encounter
--- OUTSIDE RECORDS SUMMARY | 2023-12-23 09:35 | XMS_ITS | Encounter Summary ---
Author Organization [facility] Address [address] [place] [address] Care Team Providers Care Medical I D Sales Name Role Phone Katia Stone PA-C Primary Care Provider +1- [phone] Encounter Details Date Type Department Care Team (Late st Contact Info) Description 01/14/2020 Results Only [facility] [phone] Jayesh Olmos MD [address] [place] [address] Social History Tobacco Use Types Packs/Day [...] 136 - 145 mEq/L 01/14/2020 19:[address] [facility] 01/14/2020 19:1 0 EST 01/14/2020 19:19 EST Jayesh Olmos MD CHEMISTRY & BLO OD GAS ORDERABLES Performing Organization Address [facility] Co de Phone Number [facility] [address] [place] [address] * (ABNORMAL) SODIUM (01/14/2020 14:55 EST) Sodium 125(L) 136 - 145 mEq/L 01/14/2020 15:[address] [facility] 01/14/2020 14:5 5 EST 01/14/2020 14:59 EST Jayesh Olmos MD CHEMISTRY & BLO OD GAS ORDERABLES Performing Organization Address [facility]/ZIP Co de Phone Number [facility] [address] [place] [address] * (ABNORMAL) COMPLETE BLOOD COUNT (01/14/2020 5:30 EST) WBC 5.2 4.0 - 10.5 10 3/uL 01/14/2020 6:25 [facility] RBC 3.29(L) 4.70 - 6.00 10 6/uL 01/14/2020 6:25 [facility] Hemoglobin 11.5(L) 13.5 - 18.0 g/dL 01/14/2020 6:25 [facility] HCT 31.5(L) 42.0 - 52.0 % 01/14/2020 6:25 [facility] MCV 95.7 78 - 100 fL 01/14/2020 6:25 [facility] MCH 35.0(H) 27 - 31 pg 01/14/2020 6:25 [facility] MCHC 36.5(H) 32 - 36 g/dL 01/14/2020 6:25 [facility] RDW-CV - PMC 13.1 11.0 - 14.8 % 01/14/2020 6:25 [facility] PLATELET COUNT - PMC 156 150 - 450 10 3/uL 01/14/2020 6:25 [facility] 01/14/2020 5:30 EST 01/14/2020 5:54 [facility] - 01/14/2020 6:37 [...] Olmos MD HEMATOLOGY & PF [address] [facility] [address] [place] [address] * MAGNESIUM (01/14/2020 5:30 EST) Magnesium 2.0 1.8 - 2.4 mg/dl 01/14/2020 6:30 [facility] 01/14/2020 5:30 EST 01/14/2020 5:54 EST [facility] - 01/14/2020 6:33 EST [...] MD CHEMISTRY & BLO OD GAS ORDERABLES [facility] [address] [place] [address] * (ABNORMAL) BASIC METABOLIC PANEL,RANDOM - PMC (01/14/2020 5:30 EST) Sodium 122(L) 136 - 145 mEq/L 01/14/2020 6:30 [facility] Potassium 4.0 3.5 - 5.1 mEq/L 01/14/2020 6:30 [facility] Chloride 89(L) 96 - 107 mEq/L 01/14/2020 6:30 [facility] CO2 Total 28.1 21 - 32 mEq/L 01/14/2020 6:30 [facility] Anion Gap 5.9 mEq/L 01/14/2020 6:30 [facility] BUN 11 7 - 25 mg/dl 01/14/2020 6:30 [facility] Creatinine 0.71 0.70 - 1.30 mg/dl 01/14/2020 6:30 [facility] Estimated GFR >60 >60 01/14/2020 6:30 [facility] Comment: EGFR UNITS: mL/min/1.73 m 2 CKD-EPI Equation used to calculate. Glucose 101 70 - 180 mg/dl 01/14/2020 6:30 [facility] Calcium 8.2(L) 8.5 - 10.1 mg/dl 01/14/2020 6:30 [facility] 01/14/2020 5:30 EST 01/14/2020 5:54 EST [facility] - 01/14/2020 6:33 EST [...] MD CHEMISTRY & BLO OD GAS ORDERABLES [facility] [address] [place] [address] documented in this encounter Visit Diagnoses Not on filedocumented in this encounter Care Teams Medical I D Sales Relationship Specialty Start Date End Date Katia Stone, PARosanna [address] [place] [phone] PCP - General 05/02/17 documented as of this encounter
--- OUTSIDE RECORDS SUMMARY | 2023-12-23 09:35 | XMS_ITS | Encounter Summary ---
Author Organization [facility] Address [address] [place] [address] Care Team Providers Care Lead Front Desk Agent Name Role Phone Katia Stone PA-C Primary Care Provider +1- [phone] Encounter Details Date Type Department Care Team (Late st Contact Info) Description 05/16/2020 Documentation Visit [facility] Infectious Disease - [address] [address] Ja Browne MD [facility] [address] [address] Social History Tobacco Use Types [...] This RN called clinic and spoke with Lcuy TADEO about patient's appointment. Made them aware that patient had symptoms of COVID-19 that were explained by previous diagnosis and/or chronic disease. Sticker applied to entry point screening notification sheet recommending addition of eye protection(unable to wear mask over his nose) while in the Cardiothoracic (CT) Surgery Clinic. At conclusion of Outpatient Assessment Center visit, patient sent to appointment. Kem Thomson RN, [id number] documented in this encounter Plan of Treatment Not on file documented as of this encounter Visit Diagnoses Not on filedocumented in this encounter Care Teams Lead Front Desk Agent Relationship Specialty Start Date End Date Katia Stone, MINGO [address] [place] [phone] PCP - General 05/02/17 documented as of this encounter
--- OUTSIDE RECORDS SUMMARY | 2023-12-23 09:35 | XMS_ITS | Encounter Summary ---
Author Organization [facility] Address [address] [place] [address] Care Team Providers Care Lifeguard Name Role Phone Katia Stone PA-C Primary Care Provider +1- [phone] Reason for Visit * Reason Onset Date Comments Coordination Of Care 11/12/2019 Encounter Details Date Type Department Care Team (Late st Contact Info) Description 11/12/2019 Telephone [facility] Cardiology - [place] [place] [address] Belinda Falk, TISH Coordination Of [...] RN - 11/12/2019 1036 EDT An from [employer] calling in to report that patient has had fallen 3 times yesterday. documented in this encounter Plan of Treatment Not on file documented as of this encounter Visit Diagnoses Not on filedocumented in this encounter Care Teams Lifeguard Relationship Specialty Start Date End Date Katia Stone, BELLAC [address] [place] [address] PCP - General 05/02/17 documented as of this encounter
--- OUTSIDE RECORDS SUMMARY | 2023-12-23 09:35 | XMS_ITS | Encounter Summary ---
Author Organization [facility] Address [address] [place] [address] Care Team Providers Care Death Claim Clerk Name Role Phone Katia Stone PA-C Primary Care Provider +1- [phone] Reason for Visit * Reason Onset Date Comments Appointment Related 06/16/2020 Encounter Details Date Type Department Care Team (Late st Contact Info) Description 06/16/2020 Telephone [facility] Cardiothoracic Surgery - [address] [address] Ghazala Sutherland RN Appointment Related Social History [...] Encounter - Ghazala Sutherland RN - 06/16/[address] Surgery Update Message left for pt that the Pre-Op Center will call him on Monday 06/19 between 4 - 4:45 PM. I alsoleft him a message to be sure and connect with his Crtts at PCP office to get his COVID test3-4 days prior to surgery. Surgery is on 06/26. GHAZALA SUTHERLAND RN documented in this encounter Plan of Treatment Not on file documented as of this encounter Visit Diagnoses Not on filedocumented in this encounter Care Teams Death Claim Clerk Relationship Specialty Start Date End Date Katia Stone, PABijalC [address] [place] [address] PCP - General 05/02/17 documented as of this encounter
--- OUTSIDE RECORDS SUMMARY | 2023-12-23 09:35 | XMS_ITS | Encounter Summary ---
Author Organization [facility] Address [address] [place] [address] Care Team Providers Care Process Automation Engineer Name Role Phone Katia Stone PA-C Primary Care Provider +1- [phone] Encounter Details Date Type Department Care Team (Late st Contact Info) Description 01/12/2020 Results Only [facility] [address] [place] [address] Jayesh Olguin MD [address] [place] [address] Social History Tobacco Use Types [...] (01/12/2020 22:30 EST) POC CAPILLARY GLUCOSE - [facility] 102(H) 70 - 100 mg/dL 01/12/2020 22:59 EST [facility] 01/12/2020 22:3 0 EST 01/12/2020 22:58 EST Jayesh Olguin MD POINT OF CARE TEST ORDERABLES [facility] [address] [place] [address] * (ABNORMAL) ETHYL ALCOHOL LEVEL - PMC (01/12/2020 22:30 EST) ETHYL ALCOHOL LEVEL - [facility] 237.0(CRIT HIGH) <10 mg/dL 01/12/2020 23:47 EST [facility] Comment: Results called and read back to me by: Location: ED Full name: FERMIN FAROOQ Credentials: RN at 2346 on 01/12/20 by TESS. Medical Serum/Plasma Alcohol test reported in mg/dL. Example of unit conversion from mg/dL to percentage: ?80 mg/dL is equivalent to 0.08 % 01/12/2020 22:3 0 EST 01/12/2020 23:03 EST [facility] - 01/12/2020 23:47 EST Sample collected at time of saline lock or IV placement. Jayesh Olguin MD CHEMISTRY & BLOOD G ORDERABLES Performing Organization Address [facility] de Phone Number [facility] [address] [place] [address] * TROPONIN I (01/12/2020 22:30 EST) Pathologist [facility] Troponin I (ng/mL) <0.050 0 - 0.056 ng/ml 01/12/2020 23:32 EST [facility] Comment: Interpretation: [...] 01/12/2020 22:3 0 EST 01/12/2020 23:03 EST [facility] - 01/12/2020 23:47 EST Sample collected at time of saline lock or IV placement. Jayesh Olguin MD CHEMISTRY & BLOOD G ORDERABLES Performing Organization Address [facility] Co de Phone Number [facility] [address] [place] [address] * (ABNORMAL) BASIC METABOLIC PANEL,RANDOM - PMC (01/12/2020 22:30 EST) Pathologist [facility] Sodium 116(CRIT LOW) 136 - 145 mEq/L 01/12/2020 23:33 [facility] Comment: Results called and read back to me by: Location: ED Full name: DEBBIE JOSHUA Credentials: RN at 2332 on 01/12/20 by TESS. Potassium 4.3 3.5 - 5.1 mEq/L 01/12/2020 23:32 [facility] Chloride 83(L) 96 - 107 mEq/L 01/12/2020 23:32 [facility] CO2 Total 24.6 21 - 32 mEq/L 01/12/2020 23:32 [facility] Anion Gap 10.4 mEq/L 01/12/2020 23:32 [facility] BUN 5(L) 7 - 25 mg/dl 01/12/2020 23:32 [facility] Creatinine 0.62(L) 0.70 - 1.30 mg/dl 01/12/2020 23:32 [facility] Estimated GFR >60 >60 01/12/2020 23:33 [facility] Comment: EGFR UNITS: mL/min/1.73 m 2 CKD-EPI Equation used to calculate. Glucose 89 70 - 180 mg/dl 01/12/2020 23:32 [facility] Calcium 8.2(L) 8.5 - 10.1 mg/dl 01/12/2020 23:32 [facility] 01/12/2020 22:3 0 EST 01/12/2020 23:03 [facility] - 01/12/2020 23:47 EST Sample collected at time of saline lock or IV placement. Jayesh Olguin MD CHEMISTRY & BLOOD G ORDERABLES Performing Organization Address City/State/[facility] Co de Phone Number [facility] [address] [place] [address] * (ABNORMAL) HEPATIC FUNCTION PANEL (ALB,ALK PHOS,ALT,AST,DBIL,TOT BOSSMAN,TOT PROT) (01/12/2020 22:30 EST) BILIRUBIN - PMC 0.60 0.00 - 1.00 mg/dl 01/12/2020 23:32 [facility] DIRECT BILIRUBIN - PMC 0.20 0.00 - 0.30 mg/dl 01/12/2020 23:32 [facility] INDIRECT BILIRUBIN - PMC 0.40 0.00 - 0.80 mg/dl 01/12/2020 23:32 [facility] AST 74(H) 15 - 37 U/L 01/12/2020 23:32 [facility] ALT 44 16 - 63 U/L 01/12/2020 23:32 [facility] Alkaline Phosphatase 103 46 - 116 U/L 01/12/2020 23:32 [facility] Total Protein 8.1 6.4 - 8.2 g/dl 01/12/2020 23:32 [facility] Albumin 3.3(L) 3.4 - 5.0 g/dl 01/12/2020 23:32 [facility] GLOBULIN - PMC 4.8 g/dl 01/12/2020 23:32 [facility] ALBUMIN/GLOBULIN RATIO - PMC 0.6 01/12/2020 23:32 [facility] 01/12/2020 22:3 0 EST 01/12/2020 23:03 [facility] - 01/12/2020 23:47 EST Sample collected at time of saline lock or IV placement. Jayesh Olguin MD CHEMISTRY & BLOOD G ORDERABLES [facility] [address] [place] [address] * (ABNORMAL) COMPLETE BLOOD COUNT AND DIFFERENTIAL (01/12/2020 22:30 EST) WBC 5.5 4.0 - 10.5 10 3/uL 01/12/2020 23:19 [facility] RBC 3.69(L) 4.70 - 6.00 10 6/uL 01/12/2020 23:19 [facility] Hemoglobin 12.8(L) 13.5 - 18.0 g/dL 01/12/2020 23:19 [facility] HCT 35.3(L) 42.0 - 52.0 % 01/12/2020 23:19 [facility] MCV 95.7 78 - 100 fL 01/12/2020 23:19 [facility] MCH 34.7(H) 27 - 31 pg 01/12/2020 23:19 [facility] MCHC 36.3(H) 32 - 36 g/dL 01/12/2020 23:19 [facility] RDW-CV - PMC 12.6 11.0 - 14.8 % 01/12/2020 23:19 [facility] PLATELET COUNT - PMC 182 150 - 450 10 3/uL 01/12/2020 23:19 [facility] NEUTROPHILS % (AUTO) - PMC 54.5 42.0 - 75.0 % 01/12/2020 23:19 [facility] LYMPHOCYTES % (AUTO) - PMC 29.0 16.0 - 52.0 % 01/12/2020 23:19 [facility] MONOCYTES % (AUTO) - PMC 12.6(H) 1.0 - 11.0 % 01/12/2020 23:19 [facility] EOSINOPHILS % (AUTO) - PMC 2.4 0.0 - 7.0 % 01/12/2020 23:19 [facility] BASOPHILS % (AUTO) - PMC 1.1 0.0 - 4.0 % 01/12/2020 23:19 [facility] NUCLEATED RBC % (AUTO) - PMC 0.0 <1 % 01/12/2020 23:19 [facility] NEUTROPHILS # (AUTO) - PMC 3.0 1.5 - 6.6 10 3/uL 01/12/2020 23:19 [facility] LYMPHOCYTES # (AUTO) - PMC 1.6 1.0 - 3.5 10 3/uL 01/12/2020 23:19 [facility] MONOCYTES # (AUTO) - PMC 0.7 <1.0 10 3/uL 01/12/2020 23:19 [facility] EOSINOPHILS # (AUTO) - PMC 0.1 <0.7 10 3/uL 01/12/2020 23:19 [facility] BASOPHILS # (AUTO) - PMC 0.1 <0.1 10 3/uL 01/12/2020 23:19 [facility] NUCLEATED RBC # (AUTO) - PMC 0.00 <1 10 3/uL 01/12/2020 23:19 [facility] 01/12/2020 22:3 0 EST 01/12/2020 23:04 EST Narrative [facility] - 01/12/2020 23:35 EST Sample collected at time of saline lock or IV placement. Jayesh Olguin MD PACKAGES & DNA PROB E ORDERABLES [facility] [address] [place] [address] documented in this encounter Visit Diagnoses Not on filedocumented in this encounter Care Teams Process Automation Engineer Relationship Specialty Start Date End Date Katia Stone, PABijalC [address] [place] [phone] PCP - General 05/02/17 documented as of this encounter
--- OUTSIDE RECORDS SUMMARY | 2023-12-23 09:35 | XMS_ITS | Encounter Summary ---
Author Organization [facility] Address [address] [place] [address] Care Team Providers Care Electric Lineman Name Role Phone Katia Stone PA-C Primary Care Provider +1- [phone] Reason for Visit * Reason Onset Date Comments Confirmation 05/08/2020 Encounter Details Date Type Department Care Team (Late st Contact Info) Description 05/08/2020 Telephone [facility] Cardiothoracic Surgery - [facility] [address] [place] [address] Ja Browne MD [address] [place] [phone] Confirmation Social History Tobacco Use Types [...] 05/08/2020 1128 EST Spoke with Walker higgins [place] and confirmed patient's appointment with Dr. Browne for 05/16/2020 at 9:30 am. documented in this encounter Plan of Treatment Not on file documented as of this encounter Visit Diagnoses Not on filedocumented in this encounter Care Teams Electric Lineman Relationship Specialty Start Date End Date Katia Stone, PABijalC [address] [place] [phone] PCP - General 05/02/17 documented as of this encounter
--- OUTSIDE RECORDS SUMMARY | 2023-12-23 09:35 | XMS_ITS | Encounter Summary ---
Author Organization [facility] Address [address] [place] [address] Care Team Providers Care Song Writer Name Role Phone Katia Stone PA-C Primary Care Provider +1- [phone] Encounter Details Date Type Department Care Team [...] on filedocumented in this encounter Care Teams Song Writer Relationship Specialty Start Date End Date Katia Stone, BELLAC [address] [place] [phone] PCP - General 05/02/17 documented as of this encounter
--- OUTSIDE RECORDS SUMMARY | 2023-12-23 09:35 | XMS_ITS | Encounter Summary ---
Author Organization [facility] Address [address] [place] [address] Care Team Providers Care Group Fitness Department Head Name Role Phone Katia Stone PA-C Primary Care Provider +1- [phone] Reason for Visit * Reason Onset Date Comments Pacemaker Problem 05/01/2020 Follow-up 05/03/2020 Encounter Details Date Type Department Care Team (Late st Contact Info) Description 05/01/2020 Telephone [facility] Cardiology - [address] [place], [place] [id number] Tony Rosenberg MD [address] [address] [place] [address] Pacemaker Problem; Follow-up Social History [...] 0909 EST Caller states that pt and child welfare caseworker do not understand what is going on with pt's care. From after-visit notes 04/12, it is clear to instructional writer that provider intends for pt to see Dr. Browne at [facility]. Caller, child welfare caseworker, and pt are unaware of a referral being sent to [facility], and seem to think that provider is still following care. Please call pt and child welfare caseworker directly to let them know exactly what the plan of care is. * Telephone Encounter - Brenda Bocanegra - 05/01/2020 1409 EST Spoke with Nila. We don't have much device information here as the patient is managed by [facility]. They are wanting follow up from Dr. Rosenberg regarding the next steps for pt's device care. Told them I would see what I can do to help. * Telephone Encounter - Haja Pavon - 05/01/2020 1304 EST Nila @ [facility] called to follow-up on pacemaker issues [...] documented as of this encounter Care Teams Group Fitness Department Head Relationship Specialty Start Date End Date Katia Stone, PABijalC [address] [place] [phone] PCP - General 05/02/17 documented as of this encounter
--- OUTSIDE RECORDS SUMMARY | 2023-12-23 09:35 | XMS_ITS | Encounter Summary ---
Author Organization [facility] Address [address] [place] [address] Care Team Providers Care Office Services Manager Name Role Phone Katia Stone PA-C Primary Care Provider +1- [phone] Encounter Details Date Type Department Care Team (Late st Contact Info) Description 12/12/2018 Results Only Imaging [facility] Radiology Results [address] [place] [address] Wang Vila MD [address] [facility], [address] [place] [address] Social History Tobacco Use Types [...] 22:1 5 EDT Narrative 12/12/2018 22:15 EDT ?[facility] ?[address] ?[place] [address] ?Diagnostic Imaging Report ? Signed ? Patient Name:ADOLPH,DAVID Martinez ? Date of :1950 ?MR Number:[id number] ? Age:68 ?Sex:M ? Category: CR ?Date [...] this report, please contact the [facility] at [phone] ? Dictated by: Alma Sherwood DO ?D/ ?? 2215 ?? Transcribed by: GABE ?D/T: ? E-Signed by: Alma Sherwood DO ?D/ ?? 2327 ? Procedure Note Alma Sherwood MD - 01/09/2019 [facility]: [address] [address] Diagnostic Imaging Report Signed Patient Name:DAVID FARFAN FAccount Number:[id number] Date of :1950 MRNumber:[id number] Age:68 Sex:M Category: CR Date ofExam:12/12/18 Procedure: CR: Chest; Frontal/LAT viewsAccession: [id number] Ordering Physician: Wang Vila MD CC: [...] this report, please contact the [facility] at [phone] Dictated by: Alma Sherwood DOD/ 2212 Transcribed by: JOSEPH/T: E-Signed by: Alma Sherwood DOD/ 4955 Wang Vila MD IMG DIAGNOSTIC IMAGI NG ORDERABLES documented in this encounter Visit Diagnoses Not on filedocumented in this encounter Additional Health Concerns Infection Onset Date Last Indicated Resolved Time RSV 01/31/2022 01/31/2022 02/10/2022 22:1 5 EST documented as of this encounter Care Teams Office Services Manager Relationship Specialty Start Date End Date Katia Stone, MINGO [address] [place] [phone] PCP - General 05/02/17 documented as of this encounter
--- OUTSIDE RECORDS SUMMARY | 2023-12-23 09:35 | XMS_ITS | Encounter Summary ---
Author Organization [facility] Address [address] [place] [address] Care Team Providers Care Plant Worker Name Role Phone Katia Stone PA-C Primary Care Provider +1- [phone] Reason for Visit * Reason Onset Date Comments Labs Only 05/11/2020 Encounter Details Date Type Department Care Team (Late st Contact Info) Description 05/11/2020 Telephone [facility] Acute Care Surgery - [facility] [address] [place] [address] Ja Browne MD [address] [place] [phone] Labs Only Social History Tobacco Use [...] reviewed this with the Radiology front desk receptionist on [facility] 3 that he would need to be taken to the lab on Level 2 following his chest x-ray. They did not take him. I will re-enter the orders for the CBC to have drawn at [facility] which is closest to the patient's home he states. I have routed our CT PACHECO Salvador STOUT to re-enter the Type and Screen/ x match order to be drawn inpre-op hold on the dosa. Pt made aware to go to [facility] to have the CBC drawn on 05/17 or05/18. I confirmed with the Lab there that it's the CBC that needs to be drawn. Manager Case Management verbalized understanding and no appt needed. Pt [...] filedocumented in this encounter Care Teams Plant Worker Relationship Specialty Start Date End Date Katia Stone, MINGO [address] [place] [phone] PCP - General 05/02/17 documented as of this encounter
--- OUTSIDE RECORDS SUMMARY | 2023-12-23 09:35 | XMS_ITS | Encounter Summary ---
Author Organization [facility] Address [address] [place] [address] Care Team Providers Care Band Aid Machine Operator Name Role Phone Katia Stone PA-C Primary Care Provider +1- [phone] Reason for Visit * Reason Onset Date Comments Coordination Of Care 11/30/2019 Follow-up 12/02/2019 Follow-up 12/22/2019 Pacemaker Problem 12/23/2019 Encounter Details Date Type Department Care Team (Late st Contact Info) Description 11/30/2019 Telephone [facility] Cardiology - [address] [place] [address] Tony Rosenberg MD [address] [place], [place] [address] [place] [address] Coordination Of Care; Follow-up; Follow-up; [...] Telephone Encounter - Tony Tim - 11/30/2019 5178 EDT Angela is calling to speak to [...] filedocumented in this encounter Care Teams Band Aid Machine Operator Relationship Specialty Start Date End Date Katia Stone, PABijalC [address] [place] [phone] PCP - General 05/02/17 documented as of this encounter
--- OUTSIDE RECORDS SUMMARY | 2023-12-23 09:35 | XMS_ITS | Encounter Summary ---
Author Organization [facility] Address [address] [place] [address] Care Team Providers Care Children'S Ministry Director Name Role Phone Katia Stone PA-C Primary Care Provider +1- [phone] Reason for Visit * Reason Onset Date Comments Other 06/07/[address] Surgery RN Other 06/08/2020 mailed pre-op in structions to patient Encounter Details Date Type Department Care Team (Late st Contact Info) Description 06/07/2020 Telephone [facility] Cardiothoracic Surgery - [facility] [place] [address] [place] [address] Ja Browne MD [address] [place] [phone] Other (questions for CT Surgery RN); [...] Pre-op instructions mailed to patient at: [address] [place] [phone] Address updated in [facility]. * Telephone Encounter - Cat Sutherland RN - 06/07/2020 1526 EDT Called and left message for Maru Villalobos RN at [place] [facility] [employer] to get correct address (mailing address) for patient and then have changed in Registration as he doesn't live in [place] anymore. She was going to call us [...] located near the Main Entrance of the Software Test Analyst Center at the [facility]. Prior to surgery, you will be scheduled for an anesthesia pre-screen telephone call with the Pre-Operative Department ??? Your telephone call has been scheduled for: To Be Announced between To Be Announced and To Be Announced ??? If you do not receive an appointment for the pre-screen call within two days of this appointment, please contact our office at [phone]. We have included a local lodging list [...] days prior to your surgery. Stop Saw [place] 14 days prior to surgery. ??? Acetaminophen [...] CHANGED, CALL OUR OFFICE RIGHT AWAY AT [phone]) ??? Continue to take all of your [...] clothing. ??? Do not wear any nail kinyarwanda, makeup, powder, lotion, deodorant or jewelry of [...] timely results. The Patient Access Center at [facility] will contact you with an [...] AN APPOINTMENT CONTACT THE PATIENT ACCESS CENTERAT [phone]. ??? While waiting for your surgery, you [...] on Level 3 (street level of the [facility]) for this. Following check-in, you will have [...] listed below. The Division of Cardiothoracic Surgery [address] [place] [address] (Toll Free) MD Geovanni Toure MD Marek Polomsky, MD Chris Rokkas, MD /josh & ep 03/2020 * Telephone Encounter - Cat Sutherland RN - 06/07/[address] Surgery Up[place] Maru Villalobos, women's basketball coach at [employer] [phone] EXT [phone] states patient's son and and is not on Adv Directive now. Questions call Maru Villalobos. Pre-Op Instructions mailed to patient and faxed to Maru [phone]. She will review with the patient and I will as well. Check in time for surgery on 06/26 has not been confirmed yet per our Roving Can Tender. 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 * Telephone Encounter - Melania Dumas - 06/07/2020 1013 EDT Maru from [place] calling with questions for CT Surgery RN. Requesting return call to [phone], extension 7. documented in this encounter Plan of Treatment Not on file documented as of this encounter Visit Diagnoses Diagnosis Encounter for preoperative screening laboratory testing for COVID-19 virus- Primary documented in this encounter Care Teams Children'S Ministry Director Relationship Specialty Start Date End Date Katia Stone, PABijalC [address] [place] [phone] PCP - General 05/02/17 documented as of this encounter
--- OUTSIDE RECORDS SUMMARY | 2023-12-23 09:35 | XMS_ITS | Encounter Summary ---
Author Organization [facility] Address [address] [place] [address] Care Team Providers Care General Machinist Name Role Phone Katia Stone PA-C Primary Care Provider +1- [phone] Reason for Visit * Reason Onset Date Comments Appointment Related 06/06/2020 Encounter Details Date Type Department Care Team (Late st Contact Info) Description 06/06/2020 Telephone [facility] Cardiothoracic Surgery - [facility] [address] [place] [address] Ja Browne MD [address] [place] [phone] Appointment Related Social History Tobacco Use [...] Telephone Encounter - Alma Dhillon - 06/06/2020 0901 EDT At her request, I have telephoned Nurse Community Education Specialist, Nila, at [facility] to advise of this patient's surgery date. [...] filedocumented in this encounter Care Teams General Machinist Relationship Specialty Start Date End Date Katia Stone, BELLAC [address] [place] [phone] PCP - General 05/02/17 documented as of this encounter
--- OUTSIDE RECORDS SUMMARY | 2023-12-23 09:35 | XMS_ITS | Encounter Summary ---
Author Organization [facility] Address [address] [place] [address] Care Team Providers Care Director Of Application Development Name Role Phone Katia Stone PA-C Primary Care Provider +1- [phone] Encounter Details Date Type Department Care Team (Late st Contact Info) Description 08/08/2020 Results Only [facility] [address] [place] [address] Tony Christy MD [address] [place] [address] Social History Tobacco Use Types [...] 4.0 - 10.5 10 3/uL 08/08/2020 20:51 [facility] RBC 3.15(L) 4.70 - 6.00 10 6/uL 08/08/2020 20:51 [facility] Hemoglobin 11.3(L) 13.5 - 18.0 g/dL 08/08/2020 20:51 [facility] HCT 31.4(L) 42.0 - 52.0 % 08/08/2020 20:51 [facility] MCV 99.7 78 - 100 fL 08/08/2020 20:51 [facility] MCH 35.9(H) 27 - 31 pg 08/08/2020 20:51 [facility] MCHC 36.0 32 - 37 g/dL 08/08/2020 20:51 [facility] RDW-CV - PMC 13.8 <14.7 % 08/08/2020 20:51 [facility] PLATELET COUNT - PMC 199 150 - 450 10 3/uL 08/08/2020 20:51 [facility] MPV 11.2 9.2 - 12.0 fL 08/08/2020 20:51 [facility] NEUTROPHILS % (AUTO) - PMC 81.3 % 08/08/2020 20:51 [facility] LYMPHOCYTES % (AUTO) - PMC 8.6 % 08/08/2020 20:51 [facility] MONOCYTES % (AUTO) - PMC 9.5 % 08/08/2020 20:51 [facility] EOSINOPHILS % (AUTO) - PMC 0.0 % 08/08/2020 20:51 [facility] BASOPHILS % (AUTO) - PMC 0.1 % 08/08/2020 20:51 [facility] Immature Granulocyte % (Auto) 0.5 % 08/08/2020 20:51 [facility] NUCLEATED RBC % (AUTO) - PMC 0.0 % 08/08/2020 20:51 [facility] NEUTROPHILS # (AUTO) - PMC 6.1 1.5 - 6.6 10 3/uL 08/08/2020 20:51 [facility] LYMPHOCYTES # (AUTO) - PMC 0.7(L) 1.0 - 3.5 10 3/uL 08/08/2020 20:51 [facility] MONOCYTES # (AUTO) - PMC 0.7 <1.0 10 3/uL 08/08/2020 20:51 [facility] EOSINOPHILS # (AUTO) - PMC 0.0 <0.7 10 3/uL 08/08/2020 20:51 [facility] Absolute Immature Granulocyte 0.04 <0.06 10 3/uL 08/08/2020 20:51 [facility] DIFFERENTIAL METHOD Auto Differential 08/08/2020 20:48 [facility] 08/08/2020 20:4 2 EDT 08/08/2020 20:46 EDT Tony Christy MD PACKAGES & DNA PRO BE ORDERABLES [facility] [address] [place] [address] * CORONAVIRUS COVID-19 PCR ([facility]) (08/08/2020 17:07 EDT) 08/08/2020 17:0 7 EDT 08/08/2020 17:11 EDT Comment:SWAB Narrative [facility] - 08/08/2020 18:36 EDT ----- ------- ?? RUN DATE: 08/08/20 ? [facility]: [facility] *LIVE* ? PAGE 1 ? RUN TIME: 1837 ?Specimen Inquiry ? ----- ------- ?? PATIENT: DAVID FARFAN ? ACCT: [id number] LOC: ??ED ? U: [id number] ? AGE/SX: 69/M ? ROOM: ?RE08/08/20 ?? REG DR: ??Tony Christy MD ?: ?1950 ?? BED: ? DIS: ? STATUS: REG ER ? TLOC: ? ----- ------- ? SPEC #: [id number] ?ALEX: 08/08/20 ? STATUS: ??COMP ? REQ #: [id number] ?RECD: 08/08/20 ? SUBM DR: Tony Christy [...] terminated or revoked sooner. ?Testing performed on Abigail Stewart instrument ? ----- ------- ? END OF REPORT ? Tony Christy MD MICROBIOLOGY - GEN ERAL ORDERABLES Performing Organization Address [facility] Co de Phone Number [facility] [address] [place] [address] * (ABNORMAL) BNP - PMC (08/08/2020 16:47 EDT) [facility] B-TYPE NATRIURETIC PEPTIDE - PMC 398(H) <100 pg/mL 08/08/2020 17:53 EDT [facility] 08/08/2020 16:4 7 EDT 08/08/2020 16:52 EDT Tony Christy MD CHEMISTRY & BLOOD GAS ORDERABLES Performing Organization Address [facility] de Phone Number [facility] [address] [place] [address] * TROPONIN I (08/08/2020 16:47 EDT) [facility] Troponin I (ng/mL) <0.050 0 - 0.056 ng/ml 08/08/2020 17:36 EDT [facility] Comment: Interpretation: The cutoff [...] ORDERABLES Performing Organization Address [facility] Co de Phone Number [facility] [address] [place] [address] * (ABNORMAL) COMPREHENSIVE METABOLIC PANEL (CMP) (08/08/2020 16:47 EDT) [facility] Sodium 125(L) 136 - 145 mEq/L 08/08/2020 17:29 [facility] Potassium 2.9(L) 3.5 - 5.1 mEq/L 08/08/2020 17:29 [facility] Chloride 85(L) 96 - 107 mEq/L 08/08/2020 17:29 [facility] CO2 Total 26.2 21 - 32 mEq/L 08/08/2020 17:29 [facility] Anion Gap 13.8 mEq/L 08/08/2020 17:29 [facility] BUN 8 7 - 25 mg/dl 08/08/2020 17:29 [facility] Creatinine 0.67(L) 0.70 - 1.30 mg/dl 08/08/2020 17:29 [facility] Estimated GFR >60 >60 08/08/2020 17:29 [facility] Comment: EGFR UNITS: mL/min/1.73 m 2 CKD-EPI Equation used to calculate. Glucose 101 74 - 106 mg/dl 08/08/2020 17:29 [facility] Calcium 8.5 8.5 - 10.1 mg/dl 08/08/2020 17:29 [facility] CALCIUM,CORRECTE D - PMC 9.3 8.5 - 10.5 mg/dl 08/08/2020 17:29 [facility] BILIRUBIN - PMC 1.60(H) 0.00 - 1.00 mg/dl 08/08/2020 17:29 [facility] AST 90(H) 15 - 37 U/L 08/08/2020 17:29 [facility] ALT 62 16 - 63 U/L 08/08/2020 17:29 [facility] Alkaline Phosphatase 133(H) 46 - 116 U/L 08/08/2020 17:29 [facility] Total Protein 7.6 6.4 - 8.2 g/dl 08/08/2020 17:29 [facility] Albumin 3.0(L) 3.4 - 5.0 g/dl 08/08/2020 17:29 [facility] GLOBULIN - PMC 4.6 g/dl 08/08/2020 17:29 [facility] ALBUMIN/GLOBULIN RATIO - PMC 0.6 08/08/2020 17:29 [facility] 08/08/2020 16:4 7 EDT 08/08/2020 16:52 EDT Tony Christy MD CHEMISTRY & BLOOD GAS ORDERABLES [facility] [address] [place] [address] * (ABNORMAL) COMPLETE BLOOD COUNT AND DIFFERENTIAL (08/08/2020 16:47 EDT) WBC 7.3 4.0 - 10.5 10 3/uL 08/08/2020 17:14 [facility] RBC 3.32(L) 4.70 - 6.00 10 6/uL 08/08/2020 17:14 [facility] Hemoglobin 11.8(L) 13.5 - 18.0 g/dL 08/08/2020 17:14 [facility] HCT 32.9(L) 42.0 - 52.0 % 08/08/2020 17:14 [facility] MCV 99.1 78 - 100 fL 08/08/2020 17:14 [facility] MCH 35.5(H) 27 - 31 pg 08/08/2020 17:14 [facility] MCHC 35.9 32 - 37 g/dL 08/08/2020 17:14 [facility] RDW-CV - PMC 13.7 <14.7 % 08/08/2020 17:14 [facility] PLATELET COUNT - PMC 209 150 - 450 10 3/uL 08/08/2020 17:14 [facility] MPV 11.4 9.2 - 12.0 fL 08/08/2020 17:14 [facility] NEUTROPHILS % (AUTO) - PMC 81.9 % 08/08/2020 17:14 [facility] LYMPHOCYTES % (AUTO) - PMC 9.1 % 08/08/2020 17:14 [facility] MONOCYTES % (AUTO) - PMC 8.3 % 08/08/2020 17:14 [facility] EOSINOPHILS % (AUTO) - PMC 0.0 % 08/08/2020 17:14 [facility] BASOPHILS % (AUTO) - PMC 0.1 % 08/08/2020 17:14 [facility] Immature Granulocyte % (Auto) 0.6 % 08/08/2020 17:14 [facility] NUCLEATED RBC % (AUTO) - PMC 0.0 % 08/08/2020 17:14 [facility] NEUTROPHILS # (AUTO) - PMC 5.9 1.5 - 6.6 10 3/uL 08/08/2020 17:14 [facility] LYMPHOCYTES # (AUTO) - PMC 0.7(L) 1.0 - 3.5 10 3/uL 08/08/2020 17:14 [facility] MONOCYTES # (AUTO) - PMC 0.6 <1.0 10 3/uL 08/08/2020 17:14 [facility] EOSINOPHILS # (AUTO) - PMC 0.0 <0.7 10 3/uL 08/08/2020 17:14 [facility] Absolute Immature Granulocyte 0.04 <0.06 10 3/uL 08/08/2020 17:14 [facility] DIFFERENTIAL METHOD Auto Differential 08/08/2020 16:54 [facility] 08/08/2020 16:4 7 EDT 08/08/2020 16:52 EDT Tony Christy MD PACKAGES & DNA PRO BE ORDERABLES [facility] [address] [place] [address] documented in this encounter Visit Diagnoses Not on filedocumented in this encounter Care Teams Director Of Application Development Relationship Specialty Start Date End Date Katia Stone, MINGO [address] [place] [address] PCP - General 05/02/17 documented as of this encounter
--- OUTSIDE RECORDS SUMMARY | 2023-12-23 09:35 | XMS_ITS | Encounter Summary ---
Author Organization [facility] Address [address] [place] [address] Care Team Providers Care Metal Miner Name Role Phone Katia Stone PA-C Primary Care Provider +1- [phone] Reason for Visit * Reason Onset Date Comments Other 05/19/2020 Encounter Details Date Type Department Care Team (Late st Contact Info) Description 05/19/2020 Telephone [facility] Cardiothoracic Surgery - [facility] [address] [place] [address] Ja Browne MD [address] [place] [phone] Other Social History Tobacco Use Types [...] [facility] for [facility] and the wheelabrator operator turned him away as the patient said I'll wait and have it done in [place] when I have the other blood test done. The otherblood test needed is on the day of surgery for a Pre-Op Blood Draw (type and screen). I called the lab and spoke with a Desi and she will place a note in the system so that they don't turn him away again. I asked them to call our office at [phone] if there are any questions when the patient arrives. He must have the CBC prior to surgery. I called Nila the CM at his Proivder's office and reviewed above with her. She will call the patientas she works closely with him. P) CBC at [facility]. Call CT Surgery WHILE PATIENT IS THERE IF ANY QUESTIONS. * Telephone Encounter - Alma Dhillon - 05/19/2020 1244 EDT Please call bilingual case manager at PCP Office, Nila. Patient went to [facility] to have pre-op blood draw, as he was directed. [facility] saw the order for blood bank draw, and would not draw any bloodwork for the patient. documented in this encounter Plan of Treatment Not on file documented as of this encounter Visit Diagnoses Not on filedocumented in this encounter Care Teams Metal Miner Relationship Specialty Start Date End Date Kaita Stone, MINGO [address] [place] [address] PCP - General 05/02/17 documented as of this encounter
--- OUTSIDE RECORDS SUMMARY | 2023-12-23 09:35 | XMS_ITS | Encounter Summary ---
Author Organization [facility] Address [address] [place] [address] Care Team Providers Care Supervisor Fiber Locking Name Role Phone Katia Stone PA-C Primary Care Provider +1- [phone] Encounter Details Date Type Department Care Team (Late st Contact Info) Description 01/14/2020 Results Only [facility] [address] [place] [address] Unknown, Provider, Social History Tobacco Use Types [...] 11.2 9.0 - 12.3 SEC 01/14/2020 6:26 [facility] PROTHROMBIN TIME WITH INR - PMC 1.1 0.8 - 1.2 RATIO 01/14/2020 6:26 [facility] Comment: Interpretive Information: Moderate Intensity [...] reasons. 01/14/2020 5:30 EST 01/14/2020 5:54 EST [facility] - 01/14/2020 6:37 EST [...] Unknown MD HEMATOLOGY & PF4 ORD ERABLES [facility] [address] [place] [address] * (ABNORMAL) SODIUM (01/14/2020 2:07 EST) Sodium 121(L) 136 - 145 mEq/L 01/14/2020 2:30 [facility] 01/14/2020 2:07 EST 01/14/2020 2:13 EST Narrative [facility] - 01/14/2020 2:41 EST Sample collected from saline lock with discard per protocol by non-laboratory staff. Provider Unknown CHEMISTRY & BLOOD GA S ORDERABLES Performing Organization Address City/State/[facility] Co de Phone Number [facility] [address] [place] [address] documented in this encounter Visit Diagnoses Not on filedocumented in this encounter Care Teams Supervisor Fiber Locking Relationship Specialty Start Date End Date Katia Stone, PABijalC [address] [place] [phone] PCP - General 05/02/17 documented as of this encounter
--- OUTSIDE RECORDS SUMMARY | 2023-12-23 09:35 | XMS_ITS | Encounter Summary ---
Author Organization [facility] Address [address] [place] [address] Care Team Providers Care Tile Setter Supervisor Name Role Phone Katia Stone PA-C Primary Care Provider +1- [phone] Reason for Visit * Reason Onset Date Comments Confirmation 06/19/2020 Encounter Details Date Type Department Care Team (Late st Contact Info) Description 06/19/2020 Telephone [facility] Cardiothoracic Surgery - [address] [address] Cat Sutherland RN Confirmation Social History Tobacco [...] the patient to call Maru Villalobos his Pond Supervisor as she is arranging his rides for his COVID test and Surgery as well as his instructions for surgery. I also left Maru a message aswell. * Telephone Encounter - Alma Dhillon - 06/20/2020 0938 EDT FYI---Patient's Corn Press Operator calls to say she is not able [...] well to Maru Villalobos RN the patient's Pond Supervisor at PCP office, which she did receive. Maru had stated previously that she is arranging a ride for the patient to his COVID test 3-4 days prior to surgery and also arranging ride to [facility] on the day of surgery and will assist in helping patient understand instructions. I have called Maru Villalobos RN and left her a message to call me back on 06/20. I will also call the patient on 06/20 New phone numbers for Maru: [phone] EXT#4, EXT#[phone] Or direct line = [phone] documented in this encounter Plan of Treatment Not on file documented as of this encounter Visit Diagnoses Not on filedocumented in this encounter Care Teams Tile Setter Supervisor Relationship Specialty Start Date End Date Katia Stone, PABijalC [address] [place] [phone] PCP - General 05/02/17 documented as of this encounter
--- OUTSIDE RECORDS SUMMARY | 2023-12-23 09:35 | XMS_ITS | Encounter Summary ---
Author Organization [facility] Address [address] [place] [address] Care Team Providers Care Surveyor Helper Rod Name Role Phone Katia Stone PA-C Primary Care Provider +1- [phone] Reason for Visit * Reason Comments Pacemaker Problem Encounter Details Date Type Department Care Team (Late st Contact Info) Description 04/12/2020 12:20 EST Office Visit [facility] Cardiology [address] [address] Tony Rosenberg MD [address] [place] [address] [place] [phone] Heart block AV third degree (HCC-CMS) [...] Rosenberg MD - 04/12/2020 1216 EST [facility] - [place] PROGRESS / FOLLOWUP NOTE - 04/12/2020 PROBLEM LIST 1. Third-degree heart block, status post dual chamber pacemaker insertion, complicated by pericardial effusion and need for 12-lead repositioning. 2. Hyponatremia. 3. RA lead failure. SUBJECTIVE: Mr Mera returns to the clinic at [facility] to discuss the issues surrounding his [...] has had 2 recent hospitalizations, one at [facility] and the other at [facility] for treatment of hyponatremia. PHYSICAL EXAMINATION: [...] Tony Rosenberg MD / CD Dictation ID: [id number] cc: documented in this encounter Plan of Treatment Not on file documented as of this encounter Visit Diagnoses Diagnosis 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, complete documented in this encounter Care Teams Surveyor Helper Rod Relationship Specialty Start Date End Date Katia Stone, MINGO [address] [place] [phone] PCP - General 05/02/17 documented as of this encounter
--- OUTSIDE RECORDS SUMMARY | 2023-12-23 09:35 | XMS_ITS | Encounter Summary ---
Author Organization [facility] Address [address] [place] [address] Care Team Providers Care Knitting Supervisor Name Role Phone Katia Stone PA-C Primary Care Provider +1- [phone] Encounter Details Date Type Department Care Team (Late st Contact Info) Description 01/13/2020 Results Only [facility] [phone] Jayesh Olmos MD [address] [place] [phone] Social History Tobacco Use Types Packs/Day [...] 136 - 145 mEq/L 01/13/2020 19:16 EST [facility] 01/13/2020 18:5 0 EST 01/13/2020 18:52 EST Jayesh Olmos MD CHEMISTRY & BLO OD GAS ORDERABLES Performing Organization Address [facility] Co de Phone Number [facility] [address] [place] [address] * (ABNORMAL) SODIUM (01/13/2020 13:12 EST) Sodium 126(L) 136 - 145 mEq/L 01/13/2020 13:32 EST [facility] 01/13/2020 13:1 2 EST 01/13/2020 13:15 EST Jayesh Olmos MD CHEMISTRY & BLO OD GAS ORDERABLES Performing Organization Address [facility] de Phone Number [facility] [address] [place] [address] documented in this encounter Visit Diagnoses Not on filedocumented in this encounter Care Teams Knitting Supervisor Relationship Specialty Start Date End Date Katia Stone PA-C [address] [place] [address] PCP - General 05/02/17 documented as of this encounter
--- OUTSIDE RECORDS SUMMARY | 2023-12-23 09:35 | XMS_ITS | Encounter Summary ---
Author Organization [facility] Address [address] [place] [address] Care Team Providers Care Project Architect Name Role Phone Katia Stone PA-C Primary Care Provider +1- [phone] Reason for Referral * Radiology Services (Routine) - Closed Specialty Diagnoses / Procedures Referred By Contac t Referred To Contact Diagnoses 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, initial encounter Procedures XR CHEST 2 VIEWS José Miguel Roca PA-C [address] [facility], [facility] [address] [place] [address] Referral ID Status Reason Start Date Expiration Date Visits Re quested Visits Authorized [id number] Closed 05/16/2020 1 1 Reason for Visit [...] Rosenberg MD [address] [place] [address] Ja Browne MD [address] [place], [place] [address] [address] [address] Referral ID Status Reason Start Date Expiration Date Visits Re quested Visits Authorized [id number] Closed 1 1 Encounter Details Date Type Department Care Team (Latest Contact Info) Description 05/16/2020 9:30 EDT Office Visit [facility] Cardiothoracic Surgery - [address] [place] [address] Ja Browne MD [address] [place] [address] Displacement of electrode lead of [...] located near the Main Entrance of the [facility] at the [facility]. Due [...] this appointment please contact our office at [phone]. We have included a local lodging list should you or your family require accommodations around the time of your surgery. Discounts may apply for family members of patients being hospitalized, please ask the hotel when booking. If you have cancer, you and your family member are eligible to stay at the [employer] [place]. The Oncology Patient Navigator can be reached at [phone] for assistance with this. You should receive [...] days prior to your surgery. Stop Saw [place] 14 days prior to surgery. ??? Acetaminophen [...] IF THIS CHANGES, CALL OUR OFFICE AT [phone]. Continue to take all of your other [...] helpful. ??? Do not wear any nail andorran, makeup, powder, lotion, deodorant or jewelry of [...] them with an appointment contact them at [phone] as the test MUST BE DONE 72 [...] the Surgeon's office on Level [address] [facility] Outpatient office. Note: If for [...] listed below. The Division of Cardiothoracic Surgery [address] [place] [address] (Toll Free) MD Geovanni Toure MD Marek [...] file Gets together: Not on file Attends rastafarian service: Not on file Active member of [...] Thank you. Ja Browne MD Cardiothoracic Surgery [phone] (office) 05/16/2020 10:36 * Cat Sutherland RN - 05/16/2020 0940 EDT Cardiac Surgery Nursing Pre-Operative Teaching ELECTIVES [...] daily. added in this encounter Care Teams Project Architect Relationship Specialty Start Date End Date Katia Stone PA-C [address] [place] [phone] PCP - General 05/02/17 documented as of this encounter
--- OUTSIDE RECORDS SUMMARY | 2023-12-23 09:35 | XMS_ITS | Encounter Summary ---
Author Organization [facility] Address [address] [place] [address] Care Team Providers Care Contestant Coordinator Name Role Phone Katia Stone PA-C Primary Care Provider +1- [phone] Encounter Details Date Type Department Care Team (Late st Contact Info) Description 01/15/2020 Results Only [facility] [phone] Jayesh Olmos MD [address] [place] [phone] Social History Tobacco Use Types Packs/Day [...] * (ABNORMAL) MAGNESIUM (01/15/2020 6:16 EST) Pathologist [facility] [place] Magnesium 1.6(L) 1.8 - 2.4 mg/dl 01/15/2020 7:55 [facility] 01/15/2020 6:16 EST 01/15/2020 7:24 EST Jayesh Olmos MD CHEMISTRY & BLO OD GAS ORDERABLES [facility] [address] [place] [address] * (ABNORMAL) HEPATIC & CMP COMBO,FASTING - PMC (01/15/2020 6:16 EST) Sodium 125(L) 136 - 145 mEq/L 01/15/2020 7:55 [facility] Potassium 3.8 3.5 - 5.1 mEq/L 01/15/2020 7:55 [facility] Chloride 93(L) 96 - 107 mEq/L 01/15/2020 7:55 [facility] CO2 Total 30.1 21 - 32 mEq/L 01/15/2020 7:55 [facility] Anion Gap 3.9 mEq/L 01/15/2020 7:55 [facility] BUN 10 7 - 25 mg/dl 01/15/2020 7:55 [facility] Creatinine 0.67(L) 0.70 - 1.30 mg/dl 01/15/2020 7:55 [facility] Estimated GFR >60 >60 01/15/2020 7:56 [facility] Comment: EGFR UNITS: mL/min/1.73 m 2 CKD-EPI Equation used to calculate. Glucose 92 74 - 106 mg/dl 01/15/2020 7:55 [facility] Calcium 8.2(L) 8.5 - 10.1 mg/dl 01/15/2020 7:55 [facility] CALCIUM,CORRECTE D - PMC 9.2 8.5 - 10.5 mg/dl 01/15/2020 7:55 [facility] BILIRUBIN - PMC 0.60 0.00 - 1.00 mg/dl 01/15/2020 7:55 [facility] AST 46(H) 15 - 37 U/L 01/15/2020 7:55 [facility] ALT 33 16 - 63 U/L 01/15/2020 7:55 [facility] Alkaline Phosphatase 82 46 - 116 U/L 01/15/2020 7:55 [facility] Total Protein 7.0 6.4 - 8.2 g/dl 01/15/2020 7:55 [facility] Albumin 2.8(L) 3.4 - 5.0 g/dl 01/15/2020 7:55 [facility] GLOBULIN - PMC 4.2 g/dl 01/15/2020 7:55 [facility] ALBUMIN/GLOBULIN RATIO - PMC 0.6 01/15/2020 7:55 [facility] 01/15/2020 6:16 EST 01/15/2020 7:24 EST Jayesh Olmos MD CHEMISTRY & BLO OD GAS ORDERABLES [facility] [address] [place] [address] * (ABNORMAL) COMPLETE BLOOD COUNT (01/15/2020 6:16 EST) WBC 4.4 4.0 - 10.5 10 3/uL 01/15/2020 7:45 [facility] RBC 3.26(L) 4.70 - 6.00 10 6/uL 01/15/2020 7:45 [facility] Hemoglobin 11.3(L) 13.5 - 18.0 g/dL 01/15/2020 7:45 [facility] HCT 31.2(L) 42.0 - 52.0 % 01/15/2020 7:45 [facility] MCV 95.7 78 - 100 fL 01/15/2020 7:45 [facility] MCH 34.7(H) 27 - 31 pg 01/15/2020 7:45 [facility] MCHC 36.2(H) 32 - 36 g/dL 01/15/2020 7:45 [facility] RDW-CV - PMC 12.8 11.0 - 14.8 % 01/15/2020 7:45 [facility] PLATELET COUNT - PMC 163 150 - 450 10 3/uL 01/15/2020 7:45 [facility] 01/15/2020 6:16 EST 01/15/2020 7:24 EST Jayesh Olmos MD HEMATOLOGY & PF 4 ORDERABLES Performing Organization Address City/State/[facility] Co de Phone Number [facility] [address] [place] [address] documented in this encounter Visit Diagnoses Not on filedocumented in this encounter Care Teams Contestant Coordinator Relationship Specialty Start Date End Date Katia Stone, PABijalC [address] [place] [phone] PCP - General 05/02/17 documented as of this encounter
--- OUTSIDE RECORDS SUMMARY | 2023-12-23 09:35 | XMS_ITS | Encounter Summary ---
Author Organization [facility] Address [address] [place] [address] Care Team Providers Care Retail Experience Specialist Name Role Phone Katia Stone PA-C Primary Care Provider +1- [phone] Reason for Visit * Reason Onset Date Comments Appointment Related 02/07/2020 PA REQUEST Encounter Details Date Type Department Care Team (Late st Contact Info) Description 02/07/2020 Telephone [facility] [address] [place] [address] Ulises Reinoso MD [address] [place] [address] Appointment Related (PA REQUEST) Social [...] - 02/07/2020 1327 EST PA REQUEST ECHOCARDIOGRAM [id number] 02/29/20 DYSPNEA (R06.0) VITA LIVE THANK YOU! documented in this encounter Plan of Treatment Not on file documented as of this encounter Visit Diagnoses Not on filedocumented in this encounter Care Teams Retail Experience Specialist Relationship Specialty Start Date End Date Katia tSone, PA-C [address] [place] [phone] PCP - General 05/02/17 documented as of this encounter
--- OUTSIDE RECORDS SUMMARY | 2023-12-23 09:35 | XMS_ITS | Encounter Summary ---
Author Organization [facility] Address [address] [place] [address] Care Team Providers Care Flarer Name Role Phone Katia Stone PA-C Primary Care Provider +1- [phone] Encounter Details Date Type Department Care Team (Late st Contact Info) Description 07/28/2020 Results Only [facility] [address] [place], [place] [id number] Katia Stone, MINGO [address] [place] [address] Social History Tobacco Use Types [...] Folate 9.0 >8.6 ng/mL 08/01/2020 9:[address] [facility] 07/28/2020 14:3 8 EDT 08/01/2020 9:03 EDT Katia Stone PA-C CHEMISTRY & BLOOD GAS ORDERABLES [facility] [address] [place] [address] * VITAMIN B12 (07/28/2020 14:38 EDT) Vitamin B12 265 193 - 986 pg/mL 08/01/2020 9:[address] [facility] Comment: The results of this assay can be falsely elevated due to the consumption of Biotin. 07/28/2020 14:3 8 EDT 08/01/2020 9:03 EDT Katia Stone PA-C CHEMISTRY & BLOOD GAS ORDERABLES Performing Organization Address City/[facility]/ZIP Co de Phone Number [facility] [address] [place] [address] * (ABNORMAL) IRON,TIBC,FERRITIN GROUP - PMC (07/28/2020 14:38 EDT) Iron 158 65 - 175 mcg/dL 08/01/2020 9:[address] [facility] Iron Binding Capacity 212(L) 250 - 450 mcg/dL 08/01/2020 9:[address] [facility] PERCENT IRON SATURATION - PMC 75(H) 14 - 50 % 08/01/2020 9:[address] [facility] Ferritin >1,000(H) 26 - 388 ng/mL 08/01/2020 9:[address] [facility] 07/28/2020 14:3 8 EDT 08/01/2020 9:03 EDT Katia Stone PA-C CHEMISTRY & BLOOD GAS ORDERABLES Performing Organization Address [facility] Co de Phone Number [facility] [address] [place] [phone] * MESSAGE - PMC (07/28/2020 14:38 EDT) MESSAGE - PMC 07/29/2020 2:[address] [facility] Comment: WE HAVE NOT RECEIVED ORDERS. PLEASE SEND THEM TO US. THANK YOU. 07/28/2020 14:3 8 EDT 07/28/2020 15:[address] [facility] - 07/29/2020 2:55 EDT NO ORDERS TIGER AND LAV Katia Stone PA-C CHEMISTRY & BLOOD GAS ORDERABLES Performing Organization Address City/[facility]/ZIP Co de Phone Number [facility] [address] [place] [address] documented in this encounter Visit Diagnoses Not on filedocumented in this encounter Care Teams Flarer Relationship Specialty Start Date End Date Katia Stone PA-C [address] [place] [phone] PCP - General 05/02/17 documented as of this encounter
--- OUTSIDE RECORDS SUMMARY | 2023-12-23 09:35 | XMS_ITS | Encounter Summary ---
Author Organization [facility] Address [address] [place] [address] Care Team Providers Care Smoke Eater Name Role Phone Katia Stone PA-C Primary Care Provider +1- [phone] Encounter Details Date Type Department Care Team (Late st Contact Info) Description 01/13/2020 Results Only [facility] [address] [place] [address] Unknown, Provider, Social History Tobacco Use Types [...] 136 - 145 mEq/L 01/13/2020 22:16 EST [facility] 01/13/2020 21:5 0 EST 01/13/2020 21:55 EST Narrative [facility] - 01/13/2020 22:26 EST Sample collected by ED but method of collection (IV Start or venipuncture) not indicated on sample. Provider Unknown CHEMISTRY & BLOOD GA S ORDERABLES [facility] [address] [place] [address] * TROPONIN I (01/13/2020 7:15 EST) Troponin I (ng/mL) <0.050 0 - 0.056 ng/ml 01/13/2020 7:52 EST [facility] Comment: Interpretation: The cutoff [...] 01/13/2020 7:15 EST 01/13/2020 7:18 EST Narrative [facility] - 01/13/2020 7:54 EST [...] Unknown CHEMISTRY & BLOOD GA S ORDERABLES [facility] [address] [place] [address] * (ABNORMAL) SODIUM (01/13/2020 7:15 EST) [facility] Sodium 120(L) 136 - 145 mEq/L 01/13/2020 7:52 [facility] 01/13/2020 7:15 EST 01/13/2020 7:18 [facility] - 01/13/2020 7:54 EST [...] BLOOD GA S ORDERABLES Performing Organization Address [facility] de Phone Number [facility] [address] [place] [address] * OSMOLALITY,S PMC TEMP (01/13/2020 5:42 EST) [facility] OSMOLALITY,S 280 275 - 295 mOsm/kg 01/14/2020 18:37 [facility] Comment: Test Performed by: [place] [id number] Prism Measurer: Pierre Andersen M.D. Ph.D.; CLIA# [id number] 01/13/2020 5:42 EST 01/13/2020 5:52 [facility] - 01/14/2020 18:37 EST Sample collected by ED but method of collection (IV Start or venipuncture) not indicated on sample. Provider Unknown CHEMISTRY & BLOOD GA S ORDERABLES Performing Organization Address [facility] Co de Phone Number [facility] [address] [place] [address] * FOLATE (01/13/2020 5:42 EST) [facility] Folate 18.7 >8.6 ng/mL 01/13/2020 7:43 [facility] 01/13/2020 5:42 EST 01/13/2020 5:54 EST Provider Unknown CHEMISTRY & BLOOD GA S ORDERABLES Performing Organization Address [facility] Phone Number [facility] [address] [place] [address] * VITAMIN B12 (01/13/2020 5:42 EST) Vitamin B12 246 193 - 986 pg/mL 01/13/2020 7:43 [facility] Comment: The results of this assay can be falsely elevated due to the consumption of Biotin. 01/13/2020 5:42 EST 01/13/2020 5:54 EST Provider Unknown CHEMISTRY & BLOOD GA S ORDERABLES Performing Organization Address [facility] Number [facility] [address] [place] [address] * (ABNORMAL) IRON,TIBC,FERRITIN GROUP - PMC (01/13/2020 5:42 EST) Iron 178(H) 65 - 175 mcg/dL 01/13/2020 7:43 [facility] Iron Binding Capacity 193(L) 250 - 450 mcg/dL 01/13/2020 7:43 [facility] PERCENT IRON SATURATION - PMC 92(H) 14 - 50 % 01/13/2020 7:43 [facility] Ferritin >1,000(H) 26 - 388 ng/mL 01/13/2020 7:43 [facility] 01/13/2020 5:42 EST 01/13/2020 5:54 EST Provider Unknown CHEMISTRY & BLOOD GA S ORDERABLES Performing Organization Address [facility] Co de Phone Number [facility] [address] [place] [address] * PROTIME (01/13/2020 5:42 EST) Pro Time 11.1 9.0 - 12.3 SEC 01/13/2020 6:47 [facility] PROTHROMBIN TIME WITH INR - PMC 1.1 0.8 - 1.2 RATIO 01/13/2020 6:47 [facility] Comment: Interpretive Information: Moderate Intensity [...] reasons. 01/13/2020 5:42 EST 01/13/2020 5:55 EST [facility] - 01/13/2020 6:48 EST Sample collected by ED but method of collection (IV Start or venipuncture) not indicated on sample. Provider Unknown HEMATOLOGY & PF4 ORD ERABLES Performing Organization Address [facility] Phone Number [facility] [address] [place] [address] * THYROID CASCADE (01/13/2020 5:42 EST) TSH 1.958 0.360 - 3.740 mIU/L 01/13/2020 6:35 [facility] Comment: Note: This is a Third Generation Assay .......................................... The results of this assay can be falsely decreased due to the consumption of Biotin. 01/13/2020 5:42 EST 01/13/2020 5:51 EST [facility] - 01/13/2020 6:35 EST Sample collected by ED but method of collection (IV Start or venipuncture) not indicated on sample. Provider Unknown CHEMISTRY & BLOOD GA S ORDERABLES Performing Organization Address [facility] Co fl Phone Number [facility] [address] [place] [address] * (ABNORMAL) MAGNESIUM (01/13/2020 5:42 EST) Magnesium 1.4(L) 1.8 - 2.4 mg/dl 01/13/2020 6:35 [facility] 01/13/2020 5:42 EST 01/13/2020 5:51 [facility] - 01/13/2020 6:35 EST Sample collected by ED but method of collection (IV Start or venipuncture) not indicated on sample. Provider Unknown MD CHEMISTRY & BLOOD GA S ORDERABLES [facility] [address] [place] [address] * (ABNORMAL) HEPATIC & CMP COMBO,FASTING - PMC (01/13/2020 5:42 EST) Sodium 121(L) 136 - 145 mEq/L 01/13/2020 6:35 [facility] Potassium 4.1 3.5 - 5.1 mEq/L 01/13/2020 6:35 [facility] Chloride 87(L) 96 - 107 mEq/L 01/13/2020 6:35 [facility] CO2 Total 25.5 21 - 32 mEq/L 01/13/2020 6:35 [facility] Anion Gap 8.5 mEq/L 01/13/2020 6:35 [facility] BUN 4(L) 7 - 25 mg/dl 01/13/2020 6:35 [facility] Creatinine 0.60(L) 0.70 - 1.30 mg/dl 01/13/2020 6:35 [facility] Estimated GFR >60 >60 01/13/2020 6:35 [facility] Comment: EGFR UNITS: mL/min/1.73 m 2 CKD-EPI Equation used to calculate. Glucose 70 70 - 180 mg/dl 01/13/2020 6:35 [facility] Calcium 7.9(L) 8.5 - 10.1 mg/dl 01/13/2020 6:35 [facility] CALCIUM,CORRECTE D - PMC 8.9 8.5 - 10.5 mg/dl 01/13/2020 6:35 [facility] BILIRUBIN - PMC 0.70 0.00 - 1.00 mg/dl 01/13/2020 6:35 [facility] AST 56(H) 15 - 37 U/L 01/13/2020 6:35 [facility] ALT 38 16 - 63 U/L 01/13/2020 6:35 [facility] Alkaline Phosphatase 87 46 - 116 U/L 01/13/2020 6:35 [facility] Total Protein 6.8 6.4 - 8.2 g/dl 01/13/2020 6:35 [facility] Albumin 2.7(L) 3.4 - 5.0 g/dl 01/13/2020 6:35 [facility] GLOBULIN - PMC 4.1 g/dl 01/13/2020 6:35 [facility] ALBUMIN/GLOBULIN RATIO - PMC 0.6 01/13/2020 6:35 [facility] 01/13/2020 5:42 EST 01/13/2020 5:51 [facility] - 01/13/2020 6:35 EST Sample collected by ED but method of collection (IV Start or venipuncture) not indicated on sample. Provider Unknown CHEMISTRY & BLOOD GA S ORDERABLES Performing Organization Address City/State/[facility] Co de Phone Number [facility] [address] [place] [address] * (ABNORMAL) COMPLETE BLOOD COUNT AND DIFFERENTIAL (01/13/2020 5:42 EST) WBC 5.2 4.0 - 10.5 10 3/uL 01/13/2020 6:17 [facility] RBC 3.24(L) 4.70 - 6.00 10 6/uL 01/13/2020 6:17 [facility] Hemoglobin 11.3(L) 13.5 - 18.0 g/dL 01/13/2020 6:17 [facility] HCT 30.8(L) 42.0 - 52.0 % 01/13/2020 6:17 [facility] MCV 95.1 78 - 100 fL 01/13/2020 6:17 [facility] MCH 34.9(H) 27 - 31 pg 01/13/2020 6:17 [facility] MCHC 36.7(H) 32 - 36 g/dL 01/13/2020 6:17 [facility] RDW-CV - PMC 12.5 11.0 - 14.8 % 01/13/2020 6:17 [facility] PLATELET COUNT - PMC 161 150 - 450 10 3/uL 01/13/2020 6:17 [facility] NEUTROPHILS % (AUTO) - PMC 52.1 42.0 - 75.0 % 01/13/2020 6:17 [facility] LYMPHOCYTES % (AUTO) - PMC 30.5 16.0 - 52.0 % 01/13/2020 6:17 [facility] MONOCYTES % (AUTO) - PMC 13.8(H) 1.0 - 11.0 % 01/13/2020 6:17 [facility] EOSINOPHILS % (AUTO) - PMC 1.7 0.0 - 7.0 % 01/13/2020 6:17 [facility] BASOPHILS % (AUTO) - PMC 1.3 0.0 - 4.0 % 01/13/2020 6:17 [facility] NUCLEATED RBC % (AUTO) - PMC 0.0 <1 % 01/13/2020 6:17 [facility] NEUTROPHILS # (AUTO) - PMC 2.7 1.5 - 6.6 10 3/uL 01/13/2020 6:17 [facility] LYMPHOCYTES # (AUTO) - PMC 1.6 1.0 - 3.5 10 3/uL 01/13/2020 6:17 [facility] MONOCYTES # (AUTO) - PMC 0.7 <1.0 10 3/uL 01/13/2020 6:17 [facility] EOSINOPHILS # (AUTO) - PMC 0.1 <0.7 10 3/uL 01/13/2020 6:17 [facility] BASOPHILS # (AUTO) - PMC 0.1 <0.1 10 3/uL 01/13/2020 6:17 [facility] NUCLEATED RBC # (AUTO) - PMC 0.00 <1 10 3/uL 01/13/2020 6:17 [facility] 01/13/2020 5:42 EST 01/13/2020 5:55 EST Narrative [facility] - 01/13/2020 6:48 EST Sample collected by ED but method of collection (IV Start or venipuncture) not indicated on sample. Provider Unknown MD PACKAGES & DNA PROBE ORDERABLES [facility] [address] [place] [address] * OSMOLALITY, UR PMC TEMP (01/13/2020 1:57 EST) Osmolality, Ur 239 150 - 1150 mOsm/kg 01/14/2020 18:37 EST [facility] Comment: Test Performed by: [place] [id number] Prism Measurer: Pierre Andersen M.D. Ph.D.; CLIA# [id number] 01/13/2020 1:57 EST 01/13/2020 2:14 EST Provider Unknown CHEMISTRY & BLOOD GA S ORDERABLES Performing Organization Address City/[facility]/ZIP Co de Phone Number [facility] [address] [place] [address] * UA MICROSCOPIC - PMC (01/13/2020 1:57 EST) URINE RBC - PMC None Seen 0 - 2 hpf 0 3:06 [facility] URINE WBC - PMC None seen 0 - 3 hpf 0 3:06 [facility] URINE BACTERIA - PMC None Seen None Seen hpf 01/13/2020 3:06 [facility] URINE MUCUS - PMC None Seen lpf 01/13/2020 3:06 [facility] URINE SQUAMOUS EPITHELIAL CELL - PMC None Seen None-Few hpf 01/13/2020 3:06 [facility] 01/13/2020 1:57 EST 01/13/2020 2:15 EST Narrative [facility] - 01/13/2020 3:07 EST Clean Catch Provider Unknown CHEMISTRY & BLOOD GA S ORDERABLES [facility] [address] [place] [address] * TROPONIN I (01/13/2020 1:57 EST) [facility] Troponin I (ng/mL) <0.050 0 - 0.056 ng/ml 01/13/2020 2:42 EST [facility] Comment: Interpretation: The cutoff [...] S ORDERABLES Performing Organization Address [facility] Co de Phone Number [facility] [address] [place] [address] * (ABNORMAL) SODIUM (01/13/2020 1:57 EST) [facility] Sodium 118(CRIT LOW) 136 - 145 mEq/L 01/13/2020 2:59 EST [facility] Comment: Results called and read back to me by: Location: ER Full name: LEV JOSHUA Credentials: RN at 0258 on 01/13/20 by TESS. 01/13/2020 1:57 EST 01/13/2020 2:11 EST Provider Unknown CHEMISTRY & BLOOD GA S ORDERABLES [facility] [address] [place] [address] * (ABNORMAL) BNP - PMC (01/13/2020 1:57 EST) Pathologist [facility] B-TYPE NATRIURETIC PEPTIDE - PMC 549(H) <100 pg/mL 01/13/2020 2:36 EST [facility] 01/13/2020 1:57 EST 01/13/2020 2:12 EST Provider Unknown CHEMISTRY & BLOOD GA S ORDERABLES [facility] [address] [place] [address] * (ABNORMAL) UA (CULTURE IF POSITIVE) - PMC (01/13/2020 1:57 EST) URINE COLOR - PMC Yellow Straw/Yelow 01/13/2020 2:26 [facility] URINE APPEARANCE - PMC Clear Clr/Hazy 01/13/2020 2:26 [facility] URINE PH - PMC 6.0 5.0 - 9.0 01/13/2020 2:26 [facility] UR SPECIFIC GRAVITY (REFRACTOM) - PMC 1.006 1.001 - 1.035 01/13/2020 2:40 [facility] URINE PROTEIN - PMC Negative Negative mg/dL 01/13/2020 2:26 [facility] URINE GLUCOSE (UA) - PMC Negative Negative mg/dL 01/13/2020 2:26 [facility] URINE KETONES - PMC Trace(A) Negative mg/dL 01/13/2020 2:26 [facility] URINE BILIRUBIN - PMC Negative Negative 01/13/2020 2:26 [facility] URINE BLOOD - PMC Trace(A) Negative 01/13/2020 2:26 [facility] URINE UROBILINOGEN - PMC 0.2 0.2 - 1.0 E.U./dL 01/13/2020 2:26 [facility] URINE NITRATE - PMC Negative Negative 01/13/2020 2:26 [facility] URINE LEUKOCYTE ESTERASE - PMC Negative Negative 01/13/2020 2:26 [facility] URINE CULTURE COMMENTS - PMC CRITERIA NOT MET 01/13/2020 3:06 [facility] Comment:Specimen does not me et criteria for culture. 01/13/2020 1:57 EST 01/13/2020 2:15 EST [facility] - 01/13/2020 3:07 EST Clean Catch Provider Unknown MICROBIOLOGY - GENER AL ORDERABLES [facility] [address] [place] [address] * SODIUM, URINE RANDOM (01/13/2020 1:57 EST) Sodium, Urine 52 20 - 110 mEq/L 01/13/2020 2:35 EST [facility] 01/13/2020 1:57 EST 01/13/2020 2:14 EST Provider Unknown MD URINALYSIS ORDERABLE S Performing Organization Address City/State/[facility] Co de Phone Number [facility] [address] [place] [address] documented in this encounter Visit Diagnoses Not on filedocumented in this encounter Care Teams Smoke Eater Relationship Specialty Start Date End Date Katia Stone, PA-C [address] [phone] PCP - General 05/02/17 documented as of this encounter
--- OUTSIDE RECORDS SUMMARY | 2023-12-23 09:35 | XMS_ITS | Encounter Summary ---
Author Organization [facility] Address [address] [place] [address] Care Team Providers Care Fence Installer Name Role Phone Katia Stone PA-C Primary Care Provider +1- [phone] Reason for Visit * Reason Onset Date Comments Labs Only 05/17/2020 Lab orders for p re-op blood work Encounter Details Date Type Department Care Team (Late st Contact Info) Description 05/17/2020 Telephone [facility] Cardiothoracic Surgery - [facility] [address] [place] [address] Ja Browne MD [address] [place] [phone] Labs Only (Lab orders for pre-op [...] note of 05/16. Explained again to Nila Docking Saw Operator. * Telephone Encounter - Melania Dumas - 05/17/2020 1044 EDT Nila (cage unloader from [place]) calling to find out if patient's lab orders were faxed to [place]. Per Nila, patient did not have his blood drawn while here at [facility] on 05/16/2020. Sports Physiologist explained to caller that patients are usually unable to have pre-op blood bank done at any other facility but mortgage loan underwriter will defer to [facility] Surgery RN. Nila requesting return call to [phone], extension: 7. documented in this encounter Plan of Treatment Not on file documented as of this encounter Visit Diagnoses Not on filedocumented in this encounter Care Teams Fence Installer Relationship Specialty Start Date End Date Katia Stone, BELLAC [address] [place] [id number] PCP - General 05/02/17 documented as of this encounter
--- OUTSIDE RECORDS SUMMARY | 2023-12-23 09:35 | XMS_ITS | Encounter Summary ---
Author Organization [facility] Address [address] [place] [address] Care Team Providers Care Woolen Suiting Shrinker Name Role Phone Katia Stone PA-C Primary Care Provider +1- [phone] Reason for Visit * Reason Onset Date Comments Other 05/16/2020 EKG results Encounter Details Date Type Department Care Team (Late st Contact Info) Description 05/16/2020 Telephone [facility] Cardiothoracic Surgery - [address] [address] Cat Sutherland RN Other (EKG results) Social [...] [facility] to fax [facility] to [phone][facility] I have routed our PA Salvador Roca to see if he wants to repeat on DOSA. documented in this encounter Plan of Treatment Not on file documented as of this encounter Visit Diagnoses Not on filedocumented in this encounter Care Teams Woolen Suiting Shrinker Relationship Specialty Start Date End Date Katia Stone, PA-C [address] [place] [phone] PCP - General 05/02/17 documented as of this encounter
--- OUTSIDE RECORDS SUMMARY | 2023-12-23 09:36 | XMS_ITS | Encounter Summary ---
Author Organization [facility] Address [address] [place] [address] Care Team Providers Care Door Fitter Name Role Phone Katia Stone PA-C Primary Care Provider +1- [phone] Reason for Visit * Reason Onset Date Comments Medication Questions 07/16/2017 Encounter Details Date Type Department Care Team (Late st Contact Info) Description 07/16/2017 Telephone [facility] Cardiology - [place] [address] Caitie Atwood, TAIWO 111 [facility] 1 [place] [address] Medication Questions Social History Tobacco [...] filedocumented in this encounter Care Teams Door Fitter Relationship Specialty Start Date End Date Katia Stone, MINGO [address] [place] [phone] PCP - General 05/02/17 documented as of this encounter
--- OUTSIDE RECORDS SUMMARY | 2023-12-23 09:36 | XMS_ITS | Encounter Summary ---
Author Organization [facility] Address [address] [place] [address] Care Team Providers Care Stave Saw Operator Name Role Phone Katia Stone PA-C Primary Care Provider +1- [phone] Reason for Visit * Reason Onset Date Comments Other 08/15/2017 Returning Call 08/15/2017 To Belinda Encounter Details Date Type Department Care Team (Late st Contact Info) Description 08/15/2017 Telephone [facility] Cardiology - [address] [place], [place] [id number] Belinda Falk, TISH Other; Returning Call (To [...] 08/15/2017 1243 EDT Spoke with Yessica (care connector at PCP) in regards to patient Tim [...] Yessica patient needs to follow-up with primary prescription benefit specialist in [place] Dr. Torres. Per Yessica patient has not seen Dr. Torres since before his first admission to [facility] on 04/30/17. Mentioned to Yessica, patient needs to be following up with PCP and primary prescription benefit specialist. Yessica expressed understanding and will reach out to Dr. Torres's office at [facility]. Discharge summaries and last OV note [...] by phone. Left detailed message, patient is [place] patient and no showed for visit with Dr. Rosenberg on 08/06. Instructed Yessica to reach out to [facility] where his primary prescription benefit specialist is established on voice mail. documented in this encounter Plan of Treatment Not on file documented as of this encounter Visit Diagnoses Not on filedocumented in this encounter Care Teams Stave Saw Operator Relationship Specialty Start Date End Date Katia Stone, MINGO [address] [place] [phone] PCP - General 05/02/17 documented as of this encounter
--- OUTSIDE RECORDS SUMMARY | 2023-12-23 09:36 | XMS_ITS | Encounter Summary ---
Author Organization [facility] Address [address] [place] [address] Care Team Providers Care Mailing Machine Helper Name Role Phone Katia Stone PA-C Primary Care Provider +1- [phone] Encounter Details Date Type Department Care Team (Late st Contact Info) Description 12/12/2018 Results Only [facility] [address] [place] [address] [place] [address] Wang Vila MD 111 [facility], [facility] 1 [place] [address] Social History Tobacco Use Types [...] Vila MD PACKAGES & DNA PROBE ORDERABLES [facility] documented in this encounter Visit Diagnoses Not on filedocumented in this encounter Care Teams Mailing Machine Helper Relationship Specialty Start Date End Date Katia Stone PA-C [address] [place] [phone] PCP - General 05/02/17 documented as of this encounter
--- OUTSIDE RECORDS SUMMARY | 2023-12-23 09:36 | XMS_ITS | Encounter Summary ---
Author Organization [facility] Address [address] [place] [address] Care Team Providers Care In Service Education Teacher Name Role Phone Katia Stone PA-C Primary Care Provider +1- [phone] Encounter Details Date Type Department Care Team (Late st Contact Info) Description 08/20/2018 Historical Results Only [facility] [address] [place], [place] [address] Katia Stone, MINGO [address] [place] [address] Social History Tobacco Use Types [...] Sodium 121(L) 136 - 145 08/20/2018 12:38 [facility] Potassium 4.7 3.5 - 5.1 08/20/2018 12:38 [facility] Chloride 87(L) 96 - 107 08/20/2018 12:38 [facility] CO2 Total 28.2 21 - 32 08/20/2018 12:38 [facility] Anion Gap 5.8 08/20/2018 12:38 [facility] BUN 7 7 - 25 08/20/2018 12:38 [facility] Creatinine 0.59(L) 0.7 - 1.30 08/20/2018 12:38 [facility] Estimated GFR >60 >60 08/20/2018 12:49 [facility] Comment: EGFR UNITS: mL/min/1.73 m 2 CKD-EPI Equation used to calculate. Glucose 88 FASTIN -99 08/20/2018 12:38 [facility] Calcium 8.6 8.5 - 10.5 08/20/2018 12:38 [facility] CALCIUM,CORRECTE D - PMC 9.0 8.5 - 10.5 08/20/2018 12:38 [facility] BILIRUBIN - PMC 0.60 0.00 - 1.00 08/20/2018 12:38 [facility] AST 41(H) 15 - 37 08/20/2018 12:38 [facility] ALT 47 12 - 78 08/20/2018 12:38 [facility] Alkaline Phosphatase 86 46 - 116 08/20/2018 12:38 EDT [facility] Total Protein 7.5 6.4 - 8.2 08/20/2018 12:38 [facility] Albumin 3.5 3.4 - 5.0 08/20/2018 12:38 [facility] GLOBULIN - PMC 4.0 08/20/2018 12:38 [facility] ALBUMIN/GLOBULIN RATIO - PMC 0.8 08/20/2018 12:38 [facility] 08/20/2018 11:4 8 EDT 08/20/2018 12:07 EDT Katia Stone PA-C CHEMISTRY & BLOOD GAS ORDERABLES [facility] documented in this encounter Visit Diagnoses Not on filedocumented in this encounter Care Teams In Service Education Teacher Relationship Specialty Start Date End Date Katia Stone PA-C [address] [place] [address] PCP - General 05/02/17 documented as of this encounter
--- OUTSIDE RECORDS SUMMARY | 2023-12-23 09:36 | XMS_ITS | Encounter Summary ---
Author Organization [facility] Address [address] [place] [address] Care Team Providers Care Software Quality Specialist Name Role Phone Katia Stone PA-C Primary Care Provider +1- [phone] Reason for Visit * Reason Onset Date Comments Labs Only 07/22/2017 from 07/16 Encounter Details Date Type Department Care Team (Late st Contact Info) Description 07/22/2017 Telephone [facility] Cardiology - [facility] [address] [facility] [place] [address] Tony Rosenberg MD [address] [place] [address] [address] [place] [address] Labs Only (from 07/16) Social [...] call office back with call back number [phone]. * Telephone Encounter - Belinda Falk RN - 07/23/2017 1054 EDT Call received from Yessica with questions on when patient's follow-up appointment was with Dr. Rosenberg, where the labwork needed to be sent to, and in put from cardiology. Provided Yessica the provider access line for PCP to discuss patient's care with Dr. Rosenberg. Also discussed with Yessica since patient is seen in [facility] records are not accessible to our office (labs, and outside office notes). Yessica to review with PCP and formulate coordination of care with [facility]. * Telephone Encounter - Belinda Falk RN - 07/22/2017 1500 EDT Call placed to Yessica regarding Tim Mera unable to reach patient by phone. Message left on voicemail to call office back with call back number [phone]. * Telephone Encounter - Morena Lux - 07/22/2017 1456 EDT Yessica from [facility] Regarding patients labs from 07/16 Has anyone addressed them Please call to advise documented in this encounter Plan of Treatment Not on file documented as of this encounter Visit Diagnoses Not on filedocumented in this encounter Care Teams Software Quality Specialist Relationship Specialty Start Date End Date Katia Stone, MINGO [address] [place] [phone] PCP - General 05/02/17 documented as of this encounter
--- OUTSIDE RECORDS SUMMARY | 2023-12-23 09:36 | XMS_ITS | Encounter Summary ---
Author Organization [facility] Address [address] [place] [address] Care Team Providers Care Palliative Nurse Name Role Phone Katia Stone PA-C Primary Care Provider +1- [phone] Encounter Details Date Type Department Care Team (Late st Contact Info) Description 08/13/2018 Historical Results Only [facility] [address] [place], [place] [address] Katia Stone, MINGO [address] [place] [address] Social History Tobacco Use Types [...] Sodium 125(L) 136 - 145 08/13/2018 12:52 [facility] Potassium 4.9 3.5 - 5.1 08/13/2018 12:52 [facility] Chloride 91(L) 96 - 107 08/13/2018 12:52 [facility] CO2 Total 25.4 21 - 32 08/13/2018 12:52 [facility] Anion Gap 8.6 08/13/2018 12:52 [facility] BUN 7 7 - 25 08/13/2018 12:52 [facility] Creatinine 0.59(L) 0.7 - 1.30 08/13/2018 12:52 [facility] Estimated GFR >60 >60 08/13/2018 12:53 [facility] Comment: EGFR UNITS: mL/min/1.73 m 2 CKD-EPI Equation used to calculate. Glucose 88 FASTIN -99 08/13/2018 12:52 [facility] Calcium 8.1(L) 8.5 - 10.5 08/13/2018 12:52 [facility] CALCIUM,CORRECTE D - PMC 8.7 8.5 - 10.5 08/13/2018 12:52 [facility] BILIRUBIN - PMC 0.20 0.00 - 1.00 08/13/2018 12:52 [facility] AST 40(H) 15 - 37 08/13/2018 12:52 [facility] ALT 45 12 - 78 08/13/2018 12:52 [facility] Alkaline Phosphatase 112 46 - 116 08/13/2018 12:52 EDT [facility] Total Protein 7.1 6.4 - 8.2 08/13/2018 12:52 [facility] Albumin 3.2(L) 3.4 - 5.0 08/13/2018 12:52 T [facility] GLOBULIN - PMC 3.9 08/13/2018 12:52 T [facility] ALBUMIN/GLOBULIN RATIO - PMC 0.8 08/13/2018 12:52 T [facility] 08/13/2018 11:2 8 EDT 08/13/2018 11:37 EDT Katia Stone PA-C CHEMISTRY & BLOOD GAS ORDERABLES [facility] documented in this encounter Visit Diagnoses Not on filedocumented in this encounter Care Teams Palliative Nurse Relationship Specialty Start Date End Date Katia Stone PA-C [address] [place] [phone] PCP - General 05/02/17 documented as of this encounter
--- OUTSIDE RECORDS SUMMARY | 2023-12-23 09:36 | XMS_ITS | Encounter Summary ---
Author Organization [facility] Address [address] [place] [address] Care Team Providers Care Java Consultant Name Role Phone Katia Stone PA-C Primary Care Provider +1- [phone] Encounter Details Date Type Department Care Team (Late st Contact Info) Description 06/12/2018 Historical Results Only [facility] [address] [place], [place] [address] Katia Stone, MINGO [address] [place] [address] Social History Tobacco Use Types [...] Sodium 125(L) 136 - 145 06/12/2018 17:52 [facility] Potassium 5.0 3.5 - 5.1 06/12/2018 17:52 [facility] Chloride 89(L) 96 - 107 06/12/2018 17:52 [facility] CO2 Total 28.7 21 - 32 06/12/2018 17:52 [facility] Anion Gap 7.3 06/12/2018 17:52 [facility] BUN 8 7 - 25 06/12/2018 17:52 [facility] Creatinine 0.60(L) 0.7 - 1.30 06/12/2018 17:52 [facility] Estimated GFR >60 >60 06/12/2018 17:59 [facility] Comment: EGFR UNITS: mL/min/1.73 m 2 CKD-EPI Equation used to calculate. Glucose 84 70 - 180 06/12/2018 17:52 [facility] Calcium 8.2(L) 8.5 - 10.5 06/12/2018 17:52 [facility] CALCIUM,CORRECTE D - PMC 8.7 8.5 - 10.5 06/12/2018 17:52 [facility] BILIRUBIN - PMC 0.30 0.00 - 1.00 06/12/2018 17:52 [facility] AST 39(H) 15 - 37 06/12/2018 17:52 [facility] ALT 52 12 - 78 06/12/2018 17:52 [facility] Alkaline Phosphatase 93 46 - 116 06/12/2018 17:52 EDT [facility] Total Protein 7.1 6.4 - 8.2 06/12/2018 17:52 T [facility] Albumin 3.4 3.4 - 5.0 06/12/2018 17:52 T [facility] GLOBULIN - PMC 3.7 06/12/2018 17:52 T [facility] ALBUMIN/GLOBULIN RATIO - PMC 0.9 06/12/2018 17:52 T [facility] 06/12/2018 16:4 6 EDT 06/12/2018 16:47 EDT Katia Stone PA-C CHEMISTRY & BLOOD GAS ORDERABLES [facility] documented in this encounter Visit Diagnoses Not on filedocumented in this encounter Care Teams Java Consultant Relationship Specialty Start Date End Date Katia Stone PA-C [address] [place] [address] PCP - General 05/02/17 documented as of this encounter
--- OUTSIDE RECORDS SUMMARY | 2023-12-23 09:36 | XMS_ITS | Encounter Summary ---
Author Organization [facility] Address [address] [place] [address] Care Team Providers Care Capacity Management Specialist Name Role Phone Katia Stone PA-C Primary Care Provider +1- [phone] Encounter Details Date Type Department Care Team (Late st Contact Info) Description 05/28/2018 Historical Results Only [facility] Radiology Results [address] [place], [place] [address] Haja Richmond MD [address] [place] [phone] Social History Tobacco Use Types Packs/Day [...] - PMC 129(H) <100 05/28/2018 1:18 EDT [facility] 05/28/2018 0:45 EDT 05/28/2018 0:55 EDT Haja Richmond MD CHEMISTRY & BLOOD G ORDERABLES [facility] * (ABNORMAL) COMPLETE BLOOD COUNT AND DIFFERENTIAL (05/28/2018 0:45 EDT) WBC 10.2 4.0 - 10.5 05/28/2018 0:59 EDT [facility] RBC 3.77(L) 4.70 - 6.00 05/28/2018 0:59 EDT [facility] Hemoglobin 12.7(L) 13.5 - 18.0 05/28/2018 0:59 EDT [facility] HCT 35.3(L) 42.0 - 52.0 05/28/2018 0:59 EDT [facility] MCV 93.6 78 - 100 05/28/2018 0:59 [facility] MCH 33.7(H) 27 - 31 05/28/2018 0:59 [facility] MCHC 36.0 32 - 36 05/28/2018 0:59 [facility] RDW-CV - PMC 12.0 11.5 - 14.0 05/28/2018 0:59 [facility] PLATELET COUNT - PMC 306 150 - 450 05/28/2018 0:59 [facility] NEUTROPHILS % (AUTO) - PMC 76.5(H) 42.0 - 75.0 05/28/2018 0:59 [facility] LYMPHOCYTES % (AUTO) - PMC 14.0(L) 16.0 - 52.0 05/28/2018 0:59 [facility] MONOCYTES % (AUTO) - PMC 7.9 1.0 - 11.0 05/28/2018 0:59 [facility] EOSINOPHILS % (AUTO) - PMC 0.2 0.0 - 7.0 05/28/2018 0:59 [facility] BASOPHILS % (AUTO) - PMC 0.2 0.0 - 4.0 05/28/2018 0:59 [facility] NUCLEATED RBC % (AUTO) - PMC 0.0 <1 05/28/2018 0:59 [facility] NEUTROPHILS # (AUTO) - PMC 7.8(H) 1.5 - 6.6 05/28/2018 0:59 [facility] LYMPHOCYTES # (AUTO) - PMC 1.4 1.0 - 3.5 05/28/2018 0:59 [facility] MONOCYTES # (AUTO) - PMC 0.8 <1.0 05/28/2018 0:59 [facility] EOSINOPHILS # (AUTO) - PMC 0.0 <0.7 05/28/2018 0:59 [facility] BASOPHILS # (AUTO) - PMC 0.0 <0.1 05/28/2018 0:59 [facility] NUCLEATED RBC # (AUTO) - PMC 0.00 <1 05/28/2018 0:59 [facility] 05/28/2018 0:45 EDT 05/28/2018 0:55 EDT Haja Richmond MD PACKAGES & DNA PROB E ORDERABLES Performing Organization Address [facility]/ZIP Co de Phone Number [facility] * TROPONIN I (05/28/2018 0:45 EDT) [facility] Troponin I (ng/mL) <0.05 <0.10 05/28/2018 1:23 EDT [facility] Comment: REFERENCE RANGE: Negative: ? <0.10 ng/mL Indeterminate: 0.10-0.80 ng/mL Positive: ? >0.80 ng/mL ........................................... The results of this assay can be falsely decreased due to the consumption of Biotin. 05/28/2018 0:45 EDT 05/28/2018 0:56 EDT Haja Richmond MD CHEMISTRY & BLOOD G ORDERABLES Performing Organization Address [facility] Co de Phone Number [facility] * (ABNORMAL) HEPATIC & CMP COMBO,FASTING - PMC (05/28/2018 0:45 EDT) [facility] Sodium 120(L) 136 - 145 05/28/2018 1:21 [facility] Potassium 4.0 3.5 - 5.1 05/28/2018 1:21 [facility] Chloride 83(L) 96 - 107 05/28/2018 1:21 [facility] CO2 Total 25.9 21 - 32 05/28/2018 1:21 [facility] Anion Gap 11.1 05/28/2018 1:21 [facility] BUN 6(L) 7 - 25 05/28/2018 1:21 [facility] Creatinine 0.60(L) 0.7 - 1.30 05/28/2018 1:21 [facility] Estimated GFR >60 >60 05/28/2018 1:25 [facility] Comment: EGFR UNITS: mL/min/1.73 m 2 CKD-EPI Equation used to calculate. Glucose 122 70 - 180 05/28/2018 1:21 [facility] Calcium 9.1 8.5 - 10.5 05/28/2018 1:21 [facility] CALCIUM,CORRECTE D - PMC 9.8 8.5 - 10.5 05/28/2018 1:21 [facility] BILIRUBIN - PMC 0.30 0.00 - 1.00 05/28/2018 1:21 [facility] AST 90(H) 15 - 37 05/28/2018 1:21 [facility] ALT 87(H) 12 - 78 05/28/2018 1:21 [facility] Alkaline Phosphatase 89 46 - 116 05/28/2018 1:21 [facility] Total Protein 8.3(H) 6.4 - 8.2 05/28/2018 1:21 [facility] Albumin 3.1(L) 3.4 - 5.0 05/28/2018 1:21 [facility] GLOBULIN - PMC 5.2 05/28/2018 1:21 [facility] ALBUMIN/GLOBULIN RATIO - PMC 0.5 05/28/2018 1:21 [facility] 05/28/2018 0:45 EDT 05/28/2018 0:56 EDT Haja Raulito Richmond MD CHEMISTRY & BLOOD G ORDERABLES [facility] * XR CHEST 2 VIEWS (05/28/2018 0:11 EDT) Anatomical Region Laterality Modality Other 05/28/2018 0:11 EDT Narrative 05/28/2018 0:11 EDT [facility]: [address] [address] Diagnostic Imaging Report Signed Patient Name:DAVID FARFAN ? Date of :1950 ? MR Number:[id number] Age:67 ?Sex:M Category: CR ? Date of [...] Procedure Note Alma Sherwood MD - [facility] [place] [id number] Diagnostic Imaging Report Signed Patient Name:DAVID FARFAN Number:[id number] Date of :1950 MRNumber:[id number] Age:67 Sex:M Category: CR Date ofExam:05/28/18 Procedure: CR: Chest; Frontal/LAT viewsAccession: [id number] Ordering Physician: Haja Richmond MD CC: Haja [...] documented as of this encounter Care Teams Capacity Management Specialist Relationship Specialty Start Date End Date Katia Stone, MINGO [address] [place] [phone] PCP - General 05/02/17 documented as of this encounter
--- OUTSIDE RECORDS SUMMARY | 2023-12-23 09:36 | XMS_ITS | Encounter Summary ---
Author Organization [facility] Address [address] [place] [address] Care Team Providers Care Junior Accountant Name Role Phone Katia Stone PA-C Primary Care Provider +1- [phone] Reason for Visit * Reason Onset Date Comments Other 07/16/2017 Encounter Details Date Type Department Care Team (Late st Contact Info) Description 07/16/2017 Telephone [facility] Cardiology - [place] [address] Caitie Atwood, TAIWO [address] [facility] 1 [place] [address] Other Social History Tobacco Use [...] 1358 EDT I spoke to the child care center administrator at the [place] [facility] care [facility]. There following the patient.He [...] on filedocumented in this encounter Care Teams Junior Accountant Relationship Specialty Start Date End Date Katia Stone, MINGO [address] [place] [phone] PCP - General 05/02/17 documented as of this encounter
--- OUTSIDE RECORDS SUMMARY | 2023-12-23 09:36 | XMS_ITS | Encounter Summary ---
Author Organization [facility] Address [address] [place] [address] Care Team Providers Care Logging Supervisor Name Role Phone Katia Stone PA-C Primary Care Provider +1- [phone] Reason for Visit * Reason Onset Date Comments Other 05/29/2017 Encounter Details Date Type Department Care Team (Late st Contact Info) Description 05/29/2017 Telephone [facility] Cardiology - [address] [place], [place] [id number] Daija Mariee, RN Other Social History Tobacco [...] 1018 EDT Spoke with nurse Yessica at [facility] She spoke with pt today and he had 2 episodes of sharp pains that lasted seconds at the pacemaker site Yessica- RN would like a call back with plan She states pt has had a 11# weight gain, denies shortness of breath Daughter in law takes care of meds- [phone] Spoke with pt- he had 2 quick [...] on filedocumented in this encounter Care Teams Logging Supervisor Relationship Specialty Start Date End Date Katia Stone, MINGO [address] [phone] PCP - General 05/02/17 documented as of this encounter
--- OUTSIDE RECORDS SUMMARY | 2023-12-23 09:36 | XMS_ITS | Encounter Summary ---
Author Organization [facility] Address [address] [place] [address] Care Team Providers Care Layout Former Name Role Phone Katia Stone PA-C Primary Care Provider +1- [phone] Reason for Visit * Reason Onset Date Comments Update 06/12/2017 on admission to [facility] Encounter Details Date Type Department Care Team (Late st Contact Info) Description 06/12/[address] [facility] Cardiology - [address] [place] [address] Tony Rosenberg MD [address] [place] [address] [address] [place] [address] Update (on admission to [facility]) Social History Tobacco Use Types Packs/Day [...] EDT The pt has been admitted to [facility] * Telephone Encounter - Belinda [...] for Call: Update (on admission to [facility]) Summary/Symptoms: Yessica would like to speak to the nurse regarding this patient being admitted to [facility] today at Dr. Guevara request Andra Gonzáles 06/12/2017 9:24 documented in this encounter Plan of Treatment Not on file documented as of this encounter Visit Diagnoses Not on filedocumented in this encounter Care Teams Layout Former Relationship Specialty Start Date End Date Katia Stone, MINGO [address] [place] [phone] PCP - General 05/02/17 documented as of this encounter
--- OUTSIDE RECORDS SUMMARY | 2023-12-23 09:36 | XMS_ITS | Encounter Summary ---
Author Organization [facility] Address [address] [place] [address] Care Team Providers Care [employer] Certified [employer] Professional Name Role Phone Katia Stone PA-C Primary Care Provider [phone]- [phone] Encounter Details Date Type Department Care Team (Late st Contact Info) Description 06/18/2018 Historical Results Only [facility] [address] [place], [place] [address] Katia Stone, [place] [address] [place] [address] Social History Tobacco Use Types [...] Sodium 125(L) 136 - 145 06/18/2018 13:02 [facility] Potassium 4.9 3.5 - 5.1 06/18/2018 13:02 [facility] Chloride 88(L) 96 - 107 06/18/2018 13:02 [facility] CO2 Total 27.6 21 - 32 06/18/2018 13:02 [facility] Anion Gap 8.4 06/18/2018 13:02 [facility] BUN 8 7 - 25 06/18/2018 13:02 [facility] Creatinine 0.69(L) 0.7 - 1.30 06/18/2018 13:02 [facility] Estimated GFR >60 >60 06/18/2018 13:03 [facility] Comment: EGFR UNITS: mL/min/1.73 m 2 CKD-EPI Equation used to calculate. Glucose 86 FASTIN -99 06/18/2018 13:02 [facility] Calcium 8.4(L) 8.5 - 10.5 06/18/2018 13:02 [facility] CALCIUM,CORRECTE D - PMC 8.9 8.5 - 10.5 06/18/2018 13:02 [facility] BILIRUBIN - PMC 0.60 0.00 - 1.00 06/18/2018 13:02 [facility] AST 63(H) 15 - 37 06/18/2018 13:02 [facility] ALT 58 12 - 78 06/18/2018 13:02 [facility] Alkaline Phosphatase 94 46 - 116 06/18/2018 13:02 EDT [facility] Total Protein 7.3 6.4 - 8.2 06/18/2018 13:02 [facility] Albumin 3.4 3.4 - 5.0 06/18/2018 13:02 [facility] GLOBULIN - PMC 3.9 06/18/2018 13:02 [facility] ALBUMIN/GLOBULIN RATIO - PMC 0.8 06/18/2018 13:02 [facility] 06/18/2018 12:1 4 EDT 06/18/2018 12:16 EDT Katia Stone PA-C CHEMISTRY & BLOOD GAS ORDERABLES [facility] documented in this encounter Visit Diagnoses Not on filedocumented in this encounter Care Teams [employer] Professional Relationship Specialty Start Date End Date Katia Stone PA-C [address] [place] [id number] PCP - General 05/02/17 documented as of this encounter
--- OUTSIDE RECORDS SUMMARY | 2023-12-23 09:36 | XMS_ITS | Encounter Summary ---
Author Organization [facility] Address [address] [place] [address] Care Team Providers Care Manager Marketing Sales Name Role Phone Katia Stone PA-C Primary Care Provider [phone] Reason for Referral * Consult (Routine) - New Request Specialty Diagnoses / Procedures Referred By Contgaye t Referred To Contact Diagnoses Heart failure, unspecified HF chronicity, unspecified heart failure type (HCC-CMS) Subacute effusive constrictive pericarditis Michael Pratt MD [facility] [place] [address] Referral ID Status Reason Start Date Expiration Date Visits Requested Visits Authorized [id number] New Request Specialty Services Required 06/16/2017 1 1 Question Answer Reason for Request: f/u constrictive pericarditis Expected Discharge Date (Inpatient Only): 06/16/2017 [facility] Comments With Dr. Torres * Follow Up (3 - 10 Business Days) - Receiving Office to Obtain Authorization Specialty Diagnoses / Procedures Referred By Contac t Referred To Contact Diagnoses Heart failure, unspecified HF chronicity, unspecified heart failure type (HCC-CMS) Subacute effusive constrictive pericarditis Bg Atwood MD [address] [facility] [address] [place] [address] Referral ID Status Reason Start Date Expiration Date Visits Requested Visits Authorized [id number] Receiving Office to Obtain Authorization Continuity of Care 8 1 1 Question Answer Reason for Request: f/u hospitalization for constrictive pericarditis Expected Discharge Date (Inpatient Only): 06/16/2017 * Referral (Routine/Next Available) - New Request Specialty Diagnoses / Procedures Referred By Jael t Referred To Contact Diagnoses Heart failure, unspecified HF chronicity, unspecified heart failure type ([facility]-CMS) Subacute effusive constrictive pericarditis Bg Atwood MD [address] [place] [id number] [address] Referral ID Status Reason Start Date Expiration Date Visits Requested Visits Authorized [id number] New Request Specialty Services Required 06/16/2017 1 1 Question Answer I certify that this patient is under my care and that I, or another Medicare allowed practitioner (DO CHAMP, PACHECO) working with me, had a mknk-ei-waek encounter with this patient on this date: 06/16/2017 I further certify that the xjow-zx-tgqe encounter was in whole or in part [...] ambulation Nursing skilled care requested: Nursing asessment detention assessment needed related to this encounter: Response to new or changed medication Expected Discharge Date (Inpatient Only): 06/16/2017 Encounter Details Date Type Department Care Team (Late st Contact Info) Description 06/12/2017 17:51 EDT - 06/16/2017 16:57 EDT Hospital Encounter [facility] Cardiac/Telemetry Unit [address] [place] [address] Seng Rand MD PhD [address] [facility] Level [address] [place] [address] Bg Atwood MD [address] [facility] [address] [place] [phone] Tony Rosenberg MD [address] [address] Heart failure, unspecified HF chronicity, [...] HF chronicity, unspecified heart failure type ([facility]-CMS) 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 Heart failure ([facility]) 06/12/2017 Resolved Hospital Problems Diagnosis Date Noted [...] orthopnea on a follow up exam at [facility]. He was transferred to [facility] [...] Component Value Units Date/Time Bacterial Culture/Smear, Fluid [[id number]] Collected: 06/13/17 0826 Lab Status: Preliminary result Specimen: FOSMIC from Pleural Fluid Updated: 06/15/17 0729 Gram Smear Result Polys present No bacteria seen Result No growth Bacterial Culture, Blood [[id number]] Collected: 06/12/172246 Lab Status: In process Specimen: Blood Updated: 06/12/172320 Bacterial Culture, Blood [[id number]] Collected: 06/12/172239 Lab Status: In process Specimen: [...] Return with Tony Rosenberg MD [facility] Cardiology [facility] (--) [address] [place] [address] Appointments Outside of [facility] We Will Schedule Follow-up appointments and procedures Amb Consult/Follow Up Cardiology With Dr. Torres Reason for Request: f/u constrictive pericarditis Expected Discharge Date (Inpatient Only): 06/16/2017 Practice Site (External Referral Only): [facility] Authorizing Provider: Michael Pratt MD Amb Consult/Follow Up Primary Care Physician Reason for Request: f/u hospitalization for constrictive pericarditis Expected Discharge Date (Inpatient Only): 06/16/2017 Authorizing Provider: Bg Atwood MD Home Health Agency-Other I certify that this patient is under my care and that I, or another Medicare authorized non-physician practitioner (PA or [employer] SUPERVISOR) or resident working with me, had a idcr-zz-zlji encounter with this patient on this date: 06/16/2017 I further certify that the iggu-os-yqvl encounter was in whole or in part related to the reason thepatient needs home health care.: Yes The patient has had a rsyb-ac-gvni visit by me or one of my [...] and ambulation Skilled Care Requested: Nursing asessment detention assessment needed related to this encounter: Response to new or changed medication Expected Discharge Date (Inpatient Only): 06/16/2017 Authorizing Provider: Bg Atwood MD Additional Information: Please follow up at [facility] with Dr. Tony Rosenberg on August 06, 2017 at 3:20 pm. If you have questions please call [phone]. Please follow up with your primary care physician, Katia Mccallum, on June 17, 2017 at 10:45 am. Ifyou have any questions please call [phone]. Studies We Will Schedule Appointments We Recommend but have not been Scheduled None Michael Pratt MD 06/16/2017 15:18 I evaluated the patient and agree with the discharge summary as outlined above by Dr. Pratt. Mr. Frafan was feeling much better today. 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 BG ATWOOD MD Attending Assistant Director Of Admissions [facility] documented in this encounter Discharge Instructions * Appointments* Desi Thomas - 06/16/2017 12:01 EDT Please follow up at [facility] with Dr. Tony Rosenberg on August 06, 2017 at 3:20 pm. If you have questions please call [phone]. Please follow up with your primary care physician, Katia Mccallum, on June 17, 2017 at 10:45 am. Ifyou have any questions please call [phone]. * Discharge Instr - Other Orders* Melida [...] Care Everywhere. * HEART FAILURE: AVOIDING TRIGGERS (WELSH) documented in this encounter Medications at Time [...] Services. D/C Summary was faxed to his Insole Beveler at Dr. Mccallum's office. Desi Villatoro RN #[id number] * Tej Casanova MD - 06/15/2017 0816 [...] daily with taper in near future - HEALTH ASSISTANT torsemide 40mg daily Hypokalemia/Hypomagnesemia -replete as needed [...] attestation - Bg Atwood MD - 06/15/2017 6767 EDT I have seen and evaluated the patient. I agree with the assessment and plan as outlined above by Dr. Casanova. He seems to be doing better on the steroids. I encouraged ambulation. We will likely cancel the right heart catheterization for tomorrow. BG ATWOOD MD Attending Assistant Director Of Admissions [facility] * Michael Pratt MD - 06/14/2017 [...] daily with taper in near future - HEALTH ASSISTANT torsemide 40mg daily Pleural Effusions: Associated with [...] MD 06/14/2017 6:46 Associated attestation - Bg tAwood MD - 06/14/2017 1520 EDT I have [...] not lie flat. BG ATWOOD MD Attending Assistant Director Of Admissions [facility] * Michael Pratt MD - 06/13/2017 [...] into our system or repeat echo - HEALTH ASSISTANT torsemide 40mg daily - Medical management pending [...] appetite. Pt currently not in room (in label tacker). O/ wt-100.7 kg Prior wt-~108 kg(05/24/17) Ht-180.3 [...] to d/c. Magalis Berger RD, CD X/cover #[id number] * Ameena Teixeira - 06/13/2017 1154 EDT Initial Case Management/Social Work Assessment and Discharge Plan/Readmission Risk Assessment REASON FOR ADMISSION: Heart failure ([facility]) Patient understands reason for admission: Yes PATIENT CONTACT INFO VERIFIED: Yes PATIENT ADDRESS VERIFIED: Yes (David is staying with his son Mo temporarily in [place]. He did not know the address) LIVING [...] his sons have been driving him) CULTURAL, CONFUCIANIST and/or LANGUAGE factors affecting health care/discharge planning: [...] AID - [address] - [place], [place] - [address] [facility] [id number] [facility] - [place], [place] - [address] [address] Home Health: [facility] Other: Other (enter in comments) (he has a rehab care assistant through [facility]) POST HOSPITAL TRANSITION PLAN: Likely Dc to his son's house with continuation of HH RN services. Hereports that he has only been drinking 1-2 beers/day. He denied any concern over his ETOH use. AMEENA TEIXEIRA 06/13/2017 11:59 For Ivelisse Rueda * Desi Villatoro, RN - 06/13/2017 0950 EDT 06/13: Received a call from Yessica Card at [facility]. She is the patient's Insole Beveler. I've faxed patient's H&P to her and will keep her up to date on patient's progress and projected d/c. Yessica Card, Insole Beveler P: [phone] ext [phone] F: [phone] Desi Villatoro RN [facility] #[id number] * Renetta Martini, TISH - 06/13/2017 9143 EDT Pt received from [facility] to angio [...] Notes * Denilson Shannon MD - 06/12/2017 3779 EDT Cardiology Admitting H&P Admit Date: 06/12/2017 [...] follow up performed by Dr. Rosenberg in [place] (has now completed 14 days of ibuprofen). After seeing Dr. Rosenberg yesterday and having an echo performed, he was noted to have worsening dyspnea, orthopnea, and increasing pleural effusions. He denies chest pain, diaphoresis, arm/jaw pain, wheezing, nausea/vomiting, change in bowels, or change in urination. He notes an ongoing cough with worsening abdominal pain from coughing so frequently. He was transferred to [facility] for consideration of thoracentesis and medical management. [...] tomorrow (either bedside or IR guided) - HEALTH ASSISTANT torsemide 40mg daily - NPO after midnight [...] 66 yo man who lives in [facility] and follows with Dr. Rosenberg with a [...] - team attempted to obtain echo from [facility] however unable to do so until AM - if no other etiology found consider switching to colchicine + prednisone - blood cultures Denilson Shannon MD Coin Purse Assembler Pager [phone] 06/12/2017 21:56 Associated attestation - Bg Atwood [...] thoracentesis as well. BG ATWOOD MD Attending Assistant Director Of Admissions [facility] documented in this encounter Procedure Notes * Randy Ireland PA-C - 06/13/2017 0839 EDT IR Procedure Note Procedure: Requested U/S guided bilateral thoracentesis Date Performed: 06/13/2017 Radiologist/Radiation Control Health Physicist(s):MD Andrea /MINGO Ireland Sedation/Anesthesia: local Time Out: [...] without difficulty. Discharge home orders received. Action: [facility] called and report given. They [...] with patient.Informed pt that he will have [facility] on Friday. R: Pt verbalized understanding of his plan of care. * Plan of Care - Mila Mcallister RN - 06/14/2017 9198 EDT Problem: Daily Care Plan Goals Goal: [...] to room/call garza system. Admission database completed. rigger apprentice applied. Plan of care reviewed to include [...] EDT) 06/29/2017 16:0 1 EDT Scan 2 Conference Specialist PROCEDURE/MINOR VELMA GICAL ORDERABLES * IMPLANT RECORD - SCANNED (06/19/2017 14:15 EDT) 06/19/2017 14:1 5 EDT Scan 2 Conference Specialist PROCEDURE/MINOR VELMA GICAL ORDERABLES * ECG REPORT - SCANNED (06/19/2017 14:15 EDT) 06/19/2017 14:1 5 EDT Scan 2 Conference Specialist PROCEDURE/MINOR VELMA GICAL ORDERABLES * MAGNESIUM (06/16/2017 5:39 EDT) Magnesium 1.9 1.7 - 2.8 mg/dl 06/16/2017 6:48 EDT [facility] Blood specimen (specimen) BLOOD SPECIMEN / Unknown 06/16/2017 5:39 EDT 06/16/2017 6:15 EDT Michael Pratt MD CHEMISTRY & BLOOD GA S ORDERABLES [facility] [address] [place] [address] * (ABNORMAL) ELECTROLYTES (06/16/2017 5:39 EDT) Sodium 133(L) 136 - 145 mEq/L 06/16/2017 6:48 EDT [facility] Potassium 3.7 3.5 - 5.0 mEq/L 06/16/2017 6:48 T [facility] Chloride 90(L) 96 - 110 mEq/L 06/16/2017 6:48 T [facility] CO2 33(H) 22 - 32 mEq/L 06/16/2017 6:48 T [facility] Blood specimen (specimen) BLOOD SPECIMEN / Unknown 06/16/2017 5:39 EDT 06/16/2017 6:15 EDT Michael Pratt MD CHEMISTRY & BLOOD GA S ORDERABLES [facility] [address] [place] [address] * (ABNORMAL) HEMAGRAM (06/16/2017 5:39 EDT) WBC 10.81(H) 4.0 - 10.4 K/cmm 06/16/2017 6:28 [facility] RBC 3.83(L) 4.36 - 5.78 M/cmm 06/16/2017 6:28 [facility] Hemoglobin 12.4(L) 13.8 - 17.3 gm/dl 06/16/2017 6:28 [facility] HCT 35.6(L) 39.5 - 50.2 % 06/16/2017 6:28 [facility] MCV 93 81 - 95 fl 06/16/2017 6:28 [facility] MCH 32.4 27.6 - 33.0 pg 06/16/2017 6:28 [facility] MCHC 34.8 32.8 - 36.4 gm/dl 06/16/2017 6:28 [facility] RDW-CV 11.9 <14.2 % 06/16/2017 6:28 [facility] RDW-SD 40.8 <46.0 fl 06/16/2017 6:28 [facility] PLT 204 141 - 377 K/cmm 06/16/2017 6:28 [facility] MPV 12.4 9.5 - 12.7 fl 06/16/2017 6:28 EDT [facility] Blood specimen (specimen) BLOOD SPECIMEN / Unknown 06/16/2017 5:39 EDT 06/16/2017 6:15 EDT Michael Pratt MD HEMATOLOGY & PF4 ORD ERABLES Performing Organization Address City/[facility]/ZIP Co de Phone Number [facility] [address] [place] [address] * CREATININE (06/16/2017 5:39 EDT) Creatinine 0.67 0.66 - 1.25 mg/dl 06/16/2017 6:48 EDT [facility] GFR, Calculated 100 >60 ml/min/1.7 3m2 06/16/2017 6:48 EDT [facility] Comment: eGFR calculated using CKD-EPI equation for non Americans. Multiply eGFR by 1.16 for Americans. Blood specimen (specimen) BLOOD SPECIMEN / Unknown 06/16/2017 5:39 EDT 06/16/2017 6:15 EDT Michael Pratt MD CHEMISTRY & BLOOD GA S ORDERABLES Performing Organization Address City/[facility] Co de Phone Number [facility] [address] [place] [address] * MAGNESIUM (06/15/2017 5:31 EDT) Magnesium 1.7 1.7 - 2.8 mg/dl 06/15/2017 6:24 EDT [facility] Blood specimen (specimen) BLOOD SPECIMEN / Unknown 06/15/2017 5:31 EDT 06/15/2017 5:48 EDT Michael Pratt MD CHEMISTRY & BLOOD GA S ORDERABLES Performing Organization Address City/[facility]/ZIP Co de Phone Number [facility] [address] [place] [address] * (ABNORMAL) ELECTROLYTES (06/15/2017 5:31 EDT) Sodium 133(L) 136 - 145 mEq/L 06/15/2017 6:24 EDT [facility] Potassium 3.4(L) 3.5 - 5.0 mEq/L 06/15/2017 6:24 [facility] Chloride 90(L) 96 - 110 mEq/L 06/15/2017 6:24 T [facility] CO2 34(H) 22 - 32 mEq/L 06/15/2017 6:24 T [facility] Blood specimen (specimen) BLOOD SPECIMEN / Unknown 06/15/2017 5:31 EDT 06/15/2017 5:48 EDT Michael Pratt MD CHEMISTRY & BLOOD GA S ORDERABLES Performing Organization Address City/State/[facility] Co de Phone Number [facility] [address] [place] [address] * (ABNORMAL) HEMAGRAM (06/15/2017 5:31 EDT) Pathologist [facility] WBC 11.63(H) 4.0 - 10.4 K/cmm 06/15/2017 5:58 [facility] RBC 3.51(L) 4.36 - 5.78 M/cmm 06/15/2017 5:58 [facility] Hemoglobin 11.4(L) 13.8 - 17.3 gm/dl 06/15/2017 5:58 [facility] HCT 33.1(L) 39.5 - 50.2 % 06/15/2017 5:58 [facility] MCV 94 81 - 95 fl 06/15/2017 5:58 [facility] MCH 32.5 27.6 - 33.0 pg 06/15/2017 5:58 [facility] MCHC 34.4 32.8 - 36.4 gm/dl 06/15/2017 5:58 [facility] RDW-CV 12.0 <14.2 % 06/15/2017 5:58 [facility] RDW-SD 41.4 <46.0 fl 06/15/2017 5:58 [facility] PLT 240 141 - 377 K/cmm 06/15/2017 5:58 EDT [facility] MPV 11.1 9.5 - 12.7 fl 06/15/2017 5:58 EDT [facility] Blood specimen (specimen) BLOOD SPECIMEN / Unknown 06/15/2017 5:31 EDT 06/15/2017 5:48 EDT Michael Pratt MD HEMATOLOGY & PF4 ORD ERABLES [facility] [address] [place] [address] * (ABNORMAL) CREATININE (06/15/2017 5:31 EDT) Creatinine 0.65(L) 0.66 - 1.25 mg/dl 06/15/2017 6:24 EDT [facility] GFR, Calculated 101 >60 ml/min/1.7 3m2 06/15/2017 6:24 EDT [facility] Comment: eGFR calculated using CKD-EPI equation for non Americans. Multiply eGFR by 1.16 for Americans. Blood specimen (specimen) BLOOD SPECIMEN / Unknown 06/15/2017 5:31 EDT 06/15/2017 5:48 EDT Michael Pratt MD CHEMISTRY & BLOOD GA S ORDERABLES Performing Organization Address City/[facility] Co de Phone Number [facility] [address] [place] [address] * INPATIENT ADD-ON (06/14/2017 8:00 EDT) Tests to be added PLEASE ADD ON DIFFERENTIAL TO CBC 06/14/2017 7:59 EDT [facility] Number for problems M5 06/14/2017 8:01 T [facility] Accession number [id number] 06/14/2017 8:01 EDT [facility] TOPOGRAPHY UNKNOWN / Unknown 06/14/2017 8:00 EDT 06/14/2017 8:01 EDT Catherine Walker MD HEMATOLOGY & PF4 ORD ERABLES [facility] [address] [place] [address] * (ABNORMAL) DIFFERENTIAL (06/14/2017 5:32 EDT) % Neutrophils 72.2 % 06/14/2017 8:47 EDT [facility] % Lymphocytes 14.9 % 06/14/2017 8:47 EDT [facility] % Monocytes 12.1 % 06/14/2017 8:47 EDT [facility] % Eosinophils 0.1 % 06/14/2017 8:47 T [facility] % Basophils 0.2 % 06/14/2017 8:47 EDT [facility] % Immature Grans 0.5 % 06/14/2017 8:47 EDT [facility] ABS Neutrophils 8.96(H) 2.20 - 8.85 K/cmm 06/14/2017 8:47 EDT [facility] ABS Lymphs 1.85 1.09 - 3.30 K/cmm 06/14/2017 8:47 EDT [facility] ABS Monocytes 1.50(H) 0.1 - 0.8 K/cmm 06/14/2017 8:47 T [facility] ABS Eosinophils 0.01(L) 0.03 - 0.61 K/cmm 06/14/2017 8:47 T [facility] ABS Basophils 0.02 0.01 - 0.11 K/cmm 06/14/2017 8:47 EDT [facility] ABS Immature Grans 0.06 0 - 0.06 K/cmm 06/14/2017 8:47 T [facility] Type of Diff: Automated 06/14/2017 8:47 [facility] BLOOD SPECIMEN / Unknown 06/14/2017 5:32 EDT 06/14/2017 5:53 EDT Michael Pratt MD HEMATOLOGY & PF4 ORD ERABLES [facility] [address] [place] [address] * MAGNESIUM (06/14/2017 5:32 EDT) Magnesium 2.0 1.7 - 2.8 mg/dl 06/14/2017 6:25 EDT [facility] Blood specimen (specimen) BLOOD SPECIMEN / Unknown 06/14/2017 5:32 EDT 06/14/2017 5:53 EDT Michael Pratt MD CHEMISTRY & BLOOD GA S ORDERABLES Performing Organization Address [facility] Co de Phone Number [facility] [address] [place] [address] * (ABNORMAL) ELECTROLYTES (06/14/2017 5:32 EDT) Pathologist [facility] Sodium 133(L) 136 - 145 mEq/L 06/14/2017 6:25 EDT [facility] Potassium 3.6 3.5 - 5.0 mEq/L 06/14/2017 6:25 EDT [facility] Chloride 91(L) 96 - 110 mEq/L 06/14/2017 6:25 EDT [facility] CO2 31 22 - 32 mEq/L 06/14/2017 6:25 EDT [facility] Blood specimen (specimen) BLOOD SPECIMEN / Unknown 06/14/2017 5:32 EDT 06/14/2017 5:53 EDT Michael Pratt MD CHEMISTRY & BLOOD GA S ORDERABLES Performing Organization Address City/[facility]/ZIP Co de Phone Number [facility] [address] [place] [address] * (ABNORMAL) HEMAGRAM (06/14/2017 5:32 EDT) WBC 12.41(H) 4.0 - 10.4 K/cmm 06/14/2017 6:00 EDT [facility] RBC 3.64(L) 4.36 - 5.78 M/cmm 06/14/2017 6:00 EDT [facility] Hemoglobin 11.9(L) 13.8 - 17.3 gm/dl 06/14/2017 6:00 EDT [facility] HCT 33.8(L) 39.5 - 50.2 % 06/14/2017 6:00 EDT [facility] MCV 93 81 - 95 fl 06/14/2017 6:00 EDT [facility] MCH 32.7 27.6 - 33.0 pg 06/14/2017 6:00 EDT [facility] MCHC 35.2 32.8 - 36.4 gm/dl 06/14/2017 6:00 EDT [facility] RDW-CV 11.9 <14.2 % 06/14/2017 6:00 T [facility] RDW-SD 40.7 <46.0 fl 06/14/2017 6:00 EDT [facility] PLT 243 141 - 377 K/cmm 06/14/2017 6:00 T [facility] MPV 11.7 9.5 - 12.7 fl 06/14/2017 6:00 T [facility] Blood specimen (specimen) BLOOD SPECIMEN / Unknown 06/14/2017 5:32 EDT 06/14/2017 5:53 EDT Michael Pratt MD HEMATOLOGY & PF4 ORD ERABLES [facility] [address] [place] [address] * (ABNORMAL) CREATININE (06/14/2017 5:32 EDT) Creatinine 0.60(L) 0.66 - 1.25 mg/dl 06/14/2017 6:25 EDT [facility] GFR, Calculated 105 >60 ml/min/1.7 3m2 06/14/2017 6:25 EDT [facility] Comment: eGFR calculated using CKD-EPI equation for non Americans. Multiply eGFR by 1.16 for Americans. Blood specimen (specimen) BLOOD SPECIMEN / Unknown 06/14/2017 5:32 EDT 06/14/2017 5:53 EDT Michael Pratt MD CHEMISTRY & BLOOD GA S ORDERABLES Performing Organization Address City/[facility]/ZIP Co de Phone Number [facility] [facility] [address] [place] [address] * INPATIENT ADD-ON (06/13/2017 15:00 EDT) Tests to be added PLEASE ADD ON HEMATOCRIT TO PLEURAL FLUID OBTAINED TODAY (06/13). THANK YOU 06/13/2017 14:56 EDT [facility] Number for problems [id number] 06/13/2017 15:05 EDT [facility] Accession number [id number] 06/13/2017 15:15 EDT [facility] Comment:Corrected on 06/13 A T 1515: Previously reported as [id number] TOPOGRAPHY UNKNOWN / Unknown 06/13/2017 15:00 EDT 06/13/2017 15:02 EDT Catherine Walker MD HEMATOLOGY & PF4 ORD ERABLES Performing Organization Address [facility]/ZIP Co de Phone Number [facility] [address] [place] [address] * INPATIENT ADD-ON (06/13/2017 15:00 EDT) Tests to be added TOTAL PROTEIN,LD H 06/13/2017 14:55 EDT [facility] Number for problems [id number] 06/13/2017 15:01 EDT [facility] Accession number [id number] 06/13/2017 15:02 EDT [facility] Comment:Corrected on 06/13 A T 1502: Previously reported as [id number] TOPOGRAPHY UNKNOWN / Unknown 06/13/2017 15:00 EDT 06/13/2017 15:01 EDT Catherine Walker MD HEMATOLOGY & PF4 ORD ERABLES Performing Organization Address City/[facility]/ZIP Co de Phone Number [facility] [address] [place] [address] * CT CHEST (PE) PROTOCOL W CONTRAST [...] the bilateral lower extremities. Rahat Aviles MD [facility] ORDERABLES * IR THORACENTESIS (06/13/2017 8:45 [...] sterile technique and under local anesthesia, a 8-[place] Islander thoracentesis catheter was advanced into the [...] sterile technique and under local anesthesia, a 8-[place] thoracentesis catheter was advanced into the [...] y Fld <3.0 % 06/13/2017 16:01 EDT [facility] PLEURAL FLUID SPECIMEN / Unknown 06/13/2017 8:26 EDT 06/13/2017 8:49 EDT Michael Pratt MD GEN LAB UNIT COLLECT ORDERABLES Performing Organization Address City/[facility] Co de Phone Number [facility] [address] [place] [address] * FLUID DIFFERENTIAL (06/13/2017 8:26 EDT) Neutrophils, Fluid 33 % 06/13/2017 12:15 EDT [facility] Lymphocytes, Fluid 50 % 06/13/2017 12:15 EDT [facility] Butler/Macro, Fluid 12 % 06/13/2017 12:15 EDT [facility] Mesothelial 5 % 06/13/2017 12:15 T [facility] Fluid Comment Rev'd by Pathologist 06/13/2017 12:15 EDT [facility] PLEURAL FLUID SPECIMEN / Unknown 06/13/2017 8:26 EDT 06/13/2017 8:49 EDT Michael Pratt MD GEN LAB UNIT COLLECT ORDERABLES Performing Organization Address City/[facility]/ZIP Co de Phone Number [facility] [address] [place] [address] * PH, PLEURAL FLUID (06/13/2017 8:26 EDT) Pleural Fluid pH 7.42 06/14/19 18 9:12 EDT [facility] Comment: Reference range: Pleural fluid Exudate: 7.30-7.45 Transudate: 7.40-7.55 A pleural fluid pH <7.30 is generally associated with a complicated parapneumonic effusion, empyema, connective tissue disease of the pleura or malignant effusion. PLEURAL FLUID SPECIMEN / Unknown 06/13/2017 8:26 EDT 06/13/2017 9:00 EDT Michael Pratt MD GEN LAB UNIT COLLECT ORDERABLES [facility] [address] [place] [address] * BACTERIAL CULTURE/SMEAR, FLUID (06/13/2017 8:26 EDT) Gram Smear Result Polys present 06/13/2017 10:07 EDT [facility] Gram Smear Result No bacteria seen 06/13/2017 10:07 EDT [facility] Result No growth 06/15/2017 7:29 EDT [facility] FOSMIC PLEURAL FLUID SPECIMEN / Unknown 06/13/2017 8:26 EDT 06/13/2017 9:19 EDT Comment:Left Michael Pratt MD MICROBIOLOGY - GENER AL ORDERABLES Performing Organization Address City/[facility]/ZIP Co de Phone Number [facility] [address] [place] [address] * FLUID CELL COUNT (06/13/2017 8:26 EDT) RBC, Fluid 44,000 /cmm 06/13/2017 10:31 EDT [facility] Nucleated Cells 11,202 /cmm 06/13/2017 10:31 EDT [facility] Fluid Comment MODERATELY BLOODY, MODERATELY CLOUDY 06/13/2017 10:31 EDT [facility] Body fluid specimen (specimen) PLEURAL FLUID SPECIMEN / Unknown 06/13/2017 8:26 EDT 06/13/2017 8:49 EDT Michael Pratt MD GEN LAB UNIT COLLECT ORDERABLES Performing Organization Address City/[facility]/ZIP Co de Phone Number [facility] [address] [place] [address] * TOTAL PROTEIN, FLUID (06/13/2017 8:26 EDT) Protein, Fluid 5.2 g/dl 06/13/2017 10:18 EDT [facility] Comment: Reference Range: Pleural fluid specimen (specimen) Exudate > 3.0 g/dl Pleural fluid specimen (specimen) Transudate <3.0 g/dl Peritoneal fluid sample (specimen) Serum ascites to albumin gradient (SAGG) superior to total protein content in differentiating causes of effusion. Pleural fluid specimen (specimen) [facility] PLEURAL FLUID SPECIMEN / Unknown 06/13/2017 8:26 EDT 06/13/2017 8:51 EDT Michael Pratt MD GEN LAB UNIT COLLECT ORDERABLES Performing Organization Address [facility] Co de Phone Number [facility] [address] [place] [address] * LDH, FLUID (06/13/2017 8:26 EDT) LDH, Fluid 654 U/L 06/13/2017 10:18 EDT [facility] Comment: Pleural fluid specimen (specimen) Reference Range: Suggestive of exudate if fluid cholesterol is > 45 mg/dl or fluid LDH is greater than 0.45 times the upper limit of normal serum LDH levels. Peritoneal fluid sample (specimen) No reference range available Pleural fluid specimen (specimen) [facility] PLEURAL FLUID SPECIMEN / Unknown 06/13/2017 8:26 EDT 06/13/2017 8:51 EDT Michael Pratt MD GEN LAB UNIT COLLECT ORDERABLES Performing Organization Address City/[facility]/ZIP Co de Phone Number [facility] [address] [place] [address] * GLUCOSE, FLUID (06/13/2017 8:26 EDT) Glucose, Fluid 88 mg/dl 06/13/2017 10:18 EDT [facility] Comment: Reference Range: Pleural fluid specimen (specimen) Low glucose is accepted as <60 mg/dl or pleural fluid to serum glucose ratio of <0.5. Peritoneal fluid sample (specimen) Low glucose is generally accepted as <50 mg/dl. Pleural fluid specimen (specimen) [facility] PLEURAL FLUID SPECIMEN / Unknown 06/13/2017 8:26 EDT 06/13/2017 8:51 EDT Michael Pratt MD GEN LAB UNIT COLLECT ORDERABLES Performing Organization Address City/[facility]/ZIP Co de Phone Number [facility] [address] [place] [address] * CREATININE, FLUID (06/13/2017 8:26 EDT) Creatinine, Fluid 0.57 mg/dl 06/13/2017 10:18 EDT [facility] Comment: Reference Range: Pleural fluid specimen (specimen) No reference range available Peritoneal fluid sample (specimen) No reference range available Drain device specimen (specimen) No reference range available Pleural fluid specimen (specimen) [facility] PLEURAL FLUID SPECIMEN / Unknown 06/13/2017 8:26 EDT 06/13/2017 8:51 EDT Michael Pratt MD GEN LAB UNIT COLLECT ORDERABLES Performing Organization Address City/[facility]/ZIP Co de Phone Number [facility] [address] [place] [address] * PROTEIN, TOTAL (06/13/2017 6:08 EDT) Total Protein 7.2 6.3 - 8.2 g/dl 06/13/2017 15:23 EDT [facility] BLOOD SPECIMEN / Unknown 06/13/2017 6:08 EDT 06/13/2017 6:38 EDT Michael Pratt MD CHEMISTRY & BLOOD GA S ORDERABLES Performing Organization Address [facility]/ZIP Co de Phone Number [facility] [address] [place] [address] * LDH (06/13/2017 6:08 EDT) LDH 428 313 - 618 U/L 06/13/2017 15:23 EDT [facility] BLOOD SPECIMEN / Unknown 06/13/2017 6:08 EDT 06/13/2017 6:38 EDT Michael Pratt MD CHEMISTRY & BLOOD GA S ORDERABLES [facility] [address] [place] [address] * (ABNORMAL) MAGNESIUM (06/13/2017 6:08 EDT) Magnesium 1.4(L) 1.7 - 2.8 mg/dl 06/13/2017 7:07 EDT [facility] Blood specimen (specimen) BLOOD SPECIMEN / Unknown 06/13/2017 6:08 EDT 06/13/2017 6:38 EDT Michael Pratt MD CHEMISTRY & BLOOD GA S ORDERABLES Performing Organization Address [facility] Co de Phone Number [facility] [address] [place] [address] * (ABNORMAL) ELECTROLYTES (06/13/2017 6:08 EDT) Sodium 132(L) 136 - 145 mEq/L 06/13/2017 7:07 EDT [facility] Potassium 3.6 3.5 - 5.0 mEq/L 06/13/2017 7:07 EDT [facility] Chloride 91(L) 96 - 110 mEq/L 06/13/2017 7:07 EDT [facility] CO2 29 22 - 32 mEq/L 06/13/2017 7:07 EDT [facility] Blood specimen (specimen) BLOOD SPECIMEN / Unknown 06/13/2017 6:08 EDT 06/13/2017 6:38 EDT Michael Pratt MD CHEMISTRY & BLOOD GA S ORDERABLES Performing Organization Address [facility]/ZIP Co de Phone Number [facility] [address] [place] [address] * (ABNORMAL) HEMAGRAM (06/13/2017 6:08 EDT) WBC 9.97 4.0 - 10.4 K/cmm 06/13/2017 6:52 [facility] RBC 3.76(L) 4.36 - 5.78 M/cmm 06/13/2017 6:52 [facility] Hemoglobin 12.2(L) 13.8 - 17.3 gm/dl 06/13/2017 6:52 [facility] HCT 34.9(L) 39.5 - 50.2 % 06/13/2017 6:52 [facility] MCV 93 81 - 95 fl 06/13/2017 6:52 [facility] MCH 32.4 27.6 - 33.0 pg 06/13/2017 6:52 [facility] MCHC 35.0 32.8 - 36.4 gm/dl 06/13/2017 6:52 [facility] RDW-CV 11.8 <14.2 % 06/13/2017 6:52 [facility] RDW-SD 40.4 <46.0 fl 06/13/2017 6:52 [facility] PLT 223 141 - 377 K/cmm 06/13/2017 6:52 [facility] MPV 11.9 9.5 - 12.7 fl 06/13/2017 6:52 [facility] Blood specimen (specimen) BLOOD SPECIMEN / Unknown 06/13/2017 6:08 EDT 06/13/2017 6:38 EDT Michael Pratt MD HEMATOLOGY & PF4 ORD ERABLES [facility] [address] [place] [address] * (ABNORMAL) CREATININE (06/13/2017 6:08 EDT) Creatinine 0.58(L) 0.66 - 1.25 mg/dl 06/13/2017 7:07 [facility] GFR, Calculated 106 >60 ml/min/1.7 3m2 06/13/2017 7:07 [facility] Comment: eGFR calculated using CKD-EPI equation for non Americans. Multiply eGFR by 1.16 for Americans. Blood specimen (specimen) BLOOD SPECIMEN / Unknown 06/13/2017 6:08 EDT 06/13/2017 6:38 EDT Michael Pratt MD CHEMISTRY & BLOOD GA S ORDERABLES Performing Organization Address [facility] de Phone Number [facility] [address] [place] [address] * (ABNORMAL) PROTIME (06/13/2017 6:08 EDT) Pro Time 14.0(H) 10.3 - 13.4 secs 06/13/2017 7:00 EDT [facility] Comment:NOTE NEW REFERENCE Vern FUNG OF APR 03 2017 I.N.R. 1.2(H) 0.9 - 1.1 Ratio 06/13/2017 7:00 EDT [facility] Comment: Moderate Intensity Coumadin INR = 2.0-3.0 Adjustments in anticoagulant therapy dose should be based upon the INR and NOT the Pro Time. Blood specimen (specimen) BLOOD SPECIMEN / Unknown 06/13/2017 6:08 EDT 06/13/2017 6:38 EDT Michael Pratt MD HEMATOLOGY & PF4 ORD ERABLES Performing Organization Address [facility] de Phone Number [facility] [address] [place] [address] * BACTERIAL CULTURE, BLOOD (06/12/2017 22:47 EDT) Result No growth 06/17/2017 7:12 EDT [facility] Blood specimen (specimen) BLOOD SPECIMEN / Unknown 06/12/2017 22:47 EDT 06/12/2017 23:20 EDT Comment:Left~Antecubital Denilson Shannon MD MICROBIOLOGY - GENE RAL ORDERABLES Performing Organization Address [facility] Co de Phone Number [facility] [address] [place] [address] * (ABNORMAL) D-DIMER (06/12/2017 22:40 EDT) D-Dimer 724(H) <230 ng/mL 06/12/2017 23:14 EDT [facility] Comment: CUTOFF VALUE FOR THE [...] & PF4 OR DERABLES Performing Organization Address City/[facility]/ZIP Co de Phone Number [facility] [address] [place] [address] * BACTERIAL CULTURE, BLOOD (06/12/2017 22:40 EDT) Result No growth 06/17/2017 7:12 EDT [facility] Blood specimen (specimen) BLOOD SPECIMEN / Unknown 06/12/2017 22:40 EDT 06/12/2017 23:20 EDT Comment:Right~Antecubital Denilson Shannon MD MICROBIOLOGY - GENE RAL ORDERABLES [facility] [address] [place] [address] * INPATIENT ADD-ON (06/12/2017 21:30 EDT) Tests to be added NT PRO BNP 06/12/2017 21:28 EDT [facility] Number for problems Not Given 06/12/2017 21:31 EDT [facility] Accession number [id number] 06/12/2017 21:31 EDT [facility] TOPOGRAPHY UNKNOWN / Unknown 06/12/2017 21:30 EDT 06/12/2017 21:31 EDT Denilson Shannon MD HEMATOLOGY & PF4 OR DERABLES [facility] [address] [place] [address] * CHEST PA AND LATERAL (06/12/2017 20:56 [...] added HIGH SENSITIVITY CRP 06/12/2017 19:17 EDT [facility] Number for problems [id number] 06/12/2017 19:24 EDT [facility] Accession number [id number] 06/12/2017 19:24 EDT [facility] TOPOGRAPHY UNKNOWN / Unknown 06/12/2017 19:20 EDT 06/12/2017 19:21 EDT Michael Pratt MD HEMATOLOGY & PF4 ORD ERABLES Performing Organization Address [facility] Co de Phone Number [facility] [address] [place] [address] * (ABNORMAL) NT PRO BNP (06/12/2017 18:37 EDT) [facility] NT Pro BNP 1,380(H) <300 pg/ml 06/12/2017 22:19 EDT [facility] Comment: Reference Range: NT-proBNP values [...] BLOOD GA S ORDERABLES Performing Organization Address [facility]/ZIP Co de Phone Number [facility] [address] [place] [address] * HIGH SENSITIVITY C-REACTIVE PROTEIN (CARDIOVASCULAR DISEASE) (06/12/2017 18:37 EDT) [facility] High Sensitivity CRP 83.3 mg/L 06/13/2017 10:08 EDT [facility] Comment: Reference Range: <1.0 mg/L Low risk 1.0-3.0 mg/L Average risk >3.0 mg/L High risk >10.0 mg/L Acute inflammation BLOOD SPECIMEN / Unknown 06/12/2017 18:37 EDT 06/12/2017 18:58 EDT Catherine Walker MD CHEMISTRY & BLOOD GA S ORDERABLES Performing Organization Address City/[facility]/ZIP Co de Phone Number [facility] [address] [place] [address] * TROPONIN I (06/12/2017 18:37 EDT) Troponin I (ng/mL) <0.034 <0.034 ng/ml 06/12/2017 19:49 EDT [facility] Blood specimen (specimen) BLOOD SPECIMEN / Unknown 06/12/2017 18:37 EDT 06/12/2017 18:58 EDT Catherine Walker MD CHEMISTRY & BLOOD GA S ORDERABLES Performing Organization Address City/[facility] Co de Phone Number [facility] [address] [place] [address] * (ABNORMAL) HEMAGRAM (06/12/2017 18:37 EDT) WBC 17.10(H) 4.0 - 10.4 K/cmm 06/12/2017 19:04 [facility] RBC 3.70(L) 4.36 - 5.78 M/cmm 06/12/2017 19:04 [facility] Hemoglobin 12.2(L) 13.8 - 17.3 gm/dl 06/12/2017 19:04 [facility] HCT 34.1(L) 39.5 - 50.2 % 06/12/2017 19:04 [facility] MCV 92 81 - 95 fl 06/12/2017 19:04 [facility] MCH 33.0 27.6 - 33.0 pg 06/12/2017 19:04 [facility] MCHC 35.8 32.8 - 36.4 gm/dl 06/12/2017 19:04 [facility] RDW-CV 11.6 <14.2 % 06/12/2017 19:04 EDT [facility] RDW-SD 39.4 <46.0 fl 06/12/2017 19:04 EDT [facility] PLT 206 141 - 377 K/cmm 06/12/2017 19:04 EDT [facility] MPV 12.3 9.5 - 12.7 fl 06/12/2017 19:04 EDT [facility] Blood specimen (specimen) BLOOD SPECIMEN / Unknown 06/12/2017 18:37 EDT 06/12/2017 18:58 EDT Catherine Walker MD HEMATOLOGY & PF4 ORD ERABLES Performing Organization Address City/[facility]/ZIP Co de Phone Number [facility] [address] [place] [address] * BUN (06/12/2017 18:37 EDT) BUN 10 10 - 26 mg/dl 06/12/2017 19:34 EDT [facility] Blood specimen (specimen) BLOOD SPECIMEN / Unknown 06/12/2017 18:37 EDT 06/12/2017 18:58 EDT Catherine Walker MD CHEMISTRY & BLOOD GA S ORDERABLES Performing Organization Address [facility] Co de Phone Number [facility] [address] [place] [address] * (ABNORMAL) ELECTROLYTES (06/12/2017 18:37 EDT) Sodium 129(L) 136 - 145 mEq/L 06/12/2017 19:34 EDT [facility] Potassium 3.4(L) 3.5 - 5.0 mEq/L 06/12/2017 19:34 T [facility] Chloride 91(L) 96 - 110 mEq/L 06/12/2017 19:34 T [facility] CO2 27 22 - 32 mEq/L 06/12/2017 19:34 EDT [facility] Blood specimen (specimen) BLOOD SPECIMEN / Unknown 06/12/2017 18:37 EDT 06/12/2017 18:58 EDT Catherine Walker MD CHEMISTRY & BLOOD GA S ORDERABLES Performing Organization Address [facility] de Phone Number [facility] [address] [place] [address] * (ABNORMAL) CREATININE (06/12/2017 18:37 EDT) Creatinine 0.54(L) 0.66 - 1.25 mg/dl 06/12/2017 19:34 EDT [facility] GFR, Calculated 109 >60 ml/min/1.7 3m2 06/12/2017 19:34 EDT [facility] Comment: eGFR calculated using CKD-EPI equation for non Americans. Multiply eGFR by 1.16 for Americans. Blood specimen (specimen) BLOOD SPECIMEN / Unknown 06/12/2017 18:37 EDT 06/12/2017 18:58 EDT Catherine Walker MD CHEMISTRY & BLOOD GA S ORDERABLES Performing Organization Address [facility] de Phone Number [facility] [address] [place] [address] * EKG 12-LEAD (06/12/2017 18:27 EDT) 06/12/2017 18:2 7 EDT Narrative [facility] EKG - 06/29/2017 15:57 EDT ? [facility] ? Test Date: ?2017-06-12 Pat Name: ? DAVID FARFAN ?Department: ?? Subha Chao ? Room: ? ME505 Gender: ? Male ? Estate Manager: ?? [id number] : ?1950 ? Requested By: GISELA Dunn Order Number: [id number] ? Reading MD: ?? SENG PERSON SA MD ? Measurements Intervals ?[place] ? Rate: ? 120 ?P: ?165 SC: ? 235 ?QRS: ?-22 QRSD: ? 176 [...] Seng Brody Sa, MD - 06/29/2017 [facility] Test Date: 2017-06-12 Pat Name: DAVID FARFAN Department: [place] [address] Room: [facility] Gender: Male Estate Manager: [id number] : 1950 Requested By: GISELA Dunn Order Number: [id number] Reading MD: SENG ROBLEDO Measurements Intervals [place] Rate: 120 P: 165 SC: 235 QRS: -22 QRSD: 176 T: 171 [...] Catherine Walker MD CARDIAC ECG ORDERABL ES [facility] EKG documented in this encounter Visit [...] RN) 08 (Given - Provider: Omayra Farley, ITSH) potassium chloride SA (K-DUR, KLOR-CON) tablet 40 [...] 1 06/12/2017 MEASURE WEIGHT 1 06/12/2017 NOTIFY IS ARCHITECT 1 06/12/2017 [facility] PROPHYLAXI S CURRENTLY [...] 06/01 documented in this encounter Care Teams Manager Marketing Sales Relationship Specialty Start Date End Date Katia Stone, MINGO [address] [place] [phone] PCP - General 05/02/17 documented as of this encounter
--- OUTSIDE RECORDS SUMMARY | 2023-12-23 09:36 | XMS_ITS | Encounter Summary ---
Author Organization [facility] Address [address] [place] [address] Care Team Providers Care Web Assistant Name Role Phone Katia Stone PA-C Primary Care Provider [phone]- [phone] Reason for Visit * Reason Comments Shortness of Breath Encounter Details Date Type Department Care Team (Late st Contact Info) Description 06/11/2017 13:40 EDT Office Visit [facility] Cardiology [address] [id number] Tony Rosenberg MD [address] [place] [address] [place] [phone] SOB (shortness of breath) (Primary Dx) [...] [facility] CARDIOLOGY - PATEROS PROGRESS / FOLLOWUP NOTE - 06/11/2017 PROBLEM LIST: 1. Third-degree heart block. a. Status post dual chamber pacemaker insertion. b. Pericardial effusion. c. Pacemaker generator lead repositioning and pericardiocentesis. 2. Large pleural effusions. 3. Hypertension. 4. Hyponatremia. SUBJECTIVE: Mr Mera was seen at the [facility] after his recent hospitalization at the [facility] [...] - Tony Rosenberg MD ln Dictation ID: [id number] cc: Shailesh Torres MD, [address] [address] Katia Mccallum PA-C, [place] [address] [address] [place] [address] documented in this encounter Plan of Treatment Not on file documented as of this encounter Visit Diagnoses Diagnosis SOB (shortness of breath)- Primary Shortness of breath documented in this encounter Care Teams Web Assistant Relationship Specialty Start Date End Date Katia Stone PA-C [facility] [address] [place] [phone] PCP - General 05/02/17 documented as of this encounter
--- OUTSIDE RECORDS SUMMARY | 2023-12-23 09:36 | XMS_ITS | Encounter Summary ---
Author Organization [facility] Address [address] [place] [address] Care Team Providers Care General Practitioner Name Role Phone Katia Stone PA-C Primary Care Provider +1- [phone] Encounter Details Date Type Department Care Team (Late st Contact Info) Description 07/19/2018 Historical Results Only [facility] [address] [place] [address] Vick Limon MD [address] [place] [address] Social History Tobacco Use Types [...] WBC 8.1 4.0 - 10.5 07/19/2018 18:47 [facility] RBC 3.65(L) 4.70 - 6.00 07/19/2018 18:47 [facility] Hemoglobin 12.5(L) 13.5 - 18.0 07/19/2018 18:47 [facility] HCT 34.2(L) 42.0 - 52.0 07/19/2018 18:47 [facility] MCV 93.7 78 - 100 07/19/2018 18:47 [facility] MCH 34.2(H) 27 - 31 07/19/2018 18:47 [facility] MCHC 36.5(H) 32 - 36 07/19/2018 18:47 [facility] RDW-CV - PMC 12.4 11.5 - 14.0 07/19/2018 18:47 [facility] PLATELET COUNT - PMC 158 150 - 450 07/19/2018 18:47 [facility] NEUTROPHILS % (AUTO) - PMC 63.5 42.0 - 75.0 07/19/2018 18:47 [facility] LYMPHOCYTES % (AUTO) - PMC 22.6 16.0 - 52.0 07/19/2018 18:47 [facility] MONOCYTES % (AUTO) - PMC 9.6 1.0 - 11.0 07/19/2018 18:47 [facility] EOSINOPHILS % (AUTO) - PMC 2.9 0.0 - 7.0 07/19/2018 18:47 [facility] BASOPHILS % (AUTO) - PMC 0.7 0.0 - 4.0 07/19/2018 18:47 [facility] NUCLEATED RBC % (AUTO) - PMC 0.0 <1 07/19/2018 18:47 [facility] NEUTROPHILS # (AUTO) - PMC 5.2 1.5 - 6.6 07/19/2018 18:47 [facility] LYMPHOCYTES # (AUTO) - PMC 1.8 1.0 - 3.5 07/19/2018 18:47 [facility] MONOCYTES # (AUTO) - PMC 0.8 <1.0 07/19/2018 18:47 [facility] EOSINOPHILS # (AUTO) - PMC 0.2 <0.7 07/19/2018 18:47 [facility] BASOPHILS # (AUTO) - PMC 0.1 <0.1 07/19/2018 18:47 [facility] NUCLEATED RBC # (AUTO) - PMC 0.00 <1 07/19/2018 18:47 [facility] 07/19/2018 18:3 0 EDT 07/19/2018 18:34 EDT Vick Limon MD PACKAGES & DNA PROBE ORDERABLES [facility] * (ABNORMAL) BASIC METABOLIC PANEL,RANDOM - PMC (07/19/2018 18:30 EDT) Sodium 120(L) 136 - 145 07/19/2018 18:52 [facility] Potassium 4.4 3.5 - 5.1 07/19/2018 18:52 [facility] Chloride 83(L) 96 - 107 07/19/2018 18:52 [facility] CO2 Total 24.6 21 - 32 07/19/2018 18:52 [facility] Anion Gap 13.4 07/19/2018 18:52 [facility] BUN 8 7 - 25 07/19[facility]2018 [facility] Creatinine 0.67(L) 0.7 - 1.30 07/19/2018 18:52 [facility] Estimated GFR >60 >60 07/19/2018 19:01 [facility] Comment: EGFR UNITS: mL/min/1.73 m 2 CKD-EPI Equation used to calculate. Glucose 78 70 - 180 07/19/2018 18:52 [facility] Calcium 8.2(L) 8.5 - 10.5 07/19/2018 18:52 [facility] 07/19/2018 18:3 0 EDT 07/19/2018 18:34 EDT Vick Limon MD CHEMISTRY & BLOOD GA S ORDERABLES Performing Organization Address City/[facility]/ZIP Co de Phone Number [facility] * POCT GLUCOSE (NURSING) - PMC (07/19/2018 18:21 EDT) POC CAPILLARY GLUCOSE - [facility] 86 70 - 100 07/19/2018 18:23 EDT [facility] 07/19/2018 18:2 1 EDT 07/19/2018 18:23 EDT Vick Limon MD POINT OF CARE TEST O RDERABLES [facility] documented in this encounter Visit Diagnoses Not on filedocumented in this encounter Care Teams General Practitioner Relationship Specialty Start Date End Date Katia Stone, PABijalC [address] [place] [phone] PCP - General 05/02/17 documented as of this encounter
--- OUTSIDE RECORDS SUMMARY | 2023-12-23 09:36 | XMS_ITS | Encounter Summary ---
Author Organization [facility] Address [address] [place] [address] Care Team Providers Care Yard Person Name Role Phone Katia Stone PA-C Primary Care Provider +1- [phone] Encounter Details Date Type Department Care Team (Late st Contact Info) Description 12/12/2018 Results Only [facility] [address] [place] [address] [place] [address] Wang Vila MD [address] [facility], [facility] [address] [place] [address] Social History Tobacco Use Types [...] 0.40 0.00 - 1.00 mg/dl 12/12/2018 23:24 [facility] DIRECT BILIRUBIN - PMC 0.10 0.00 - 0.30 mg/dl 12/12/2018 23:24 [facility] INDIRECT BILIRUBIN - PMC 0.30 0.00 - 0.80 mg/dl 12/12/2018 23:24 [facility] AST 68(H) 15 - 37 U/L 12/12/2018 23:24 [facility] ALT 53 12 - 78 U/L 12/12/2018 23:24 [facility] Alkaline Phosphatase 98 46 - 116 U/L 12/12/2018 23:24 [facility] Total Protein 7.4 6.4 - 8.2 g/dl 12/12/2018 23:24 [facility] Albumin 3.0(L) 3.4 - 5.0 g/dl 12/12/2018 23:24 EDT [facility] GLOBULIN - PMC 4.4 g/dl 12/12/2018 23:24 EDT [facility] ALBUMIN/GLOBULIN RATIO - PMC 0.6 12/12/2018 23:24 EDT [facility] 12/12/2018 22:1 6 EDT 12/12/2018 23:12 EDT Wang Vila MD CHEMISTRY & BLOOD GA S ORDERABLES Performing Organization Address [facility] Co de Phone Number [facility] * PROCALCITONIN - PMC (12/12/2018 22:16 EDT) Procalcitonin <0.05 <0.50 ng/mL 12/12/2018 23:13 EDT [facility] Comment: Concentration of < 0.5 [...] & PF4 ORD ERABLES Performing Organization Address City/[facility]/ZIP Co de Phone Number [facility] * (ABNORMAL) BNP - PMC (12/12/2018 22:15 EDT) B-TYPE NATRIURETIC PEPTIDE - PMC 123(H) <100 pg/mL 12/12/2018 22:40 EDT [facility] 12/12/2018 22:1 5 EDT 12/12/2018 22:19 EDT Wang Vila MD CHEMISTRY & BLOOD GA S ORDERABLES Performing Organization Address [facility] de Phone Number [facility] * TROPONIN I (12/12/2018 22:06 EDT) Pathologist [facility] Troponin I (ng/mL) <0.05 <0.10 ng/ml 12/12/2018 23:00 [facility] Comment: REFERENCE RANGE: Negative: ? <0.10 ng/mL Indeterminate: 0.10-0.80 ng/mL Positive: ? >0.80 ng/mL ........................................... The results of this assay can be falsely decreased due to the consumption of Biotin. 12/12/2018 22:0 6 EDT 12/12/2018 22:18 EDT Wang Vila MD CHEMISTRY & BLOOD GA S ORDERABLES Performing Organization Address [facility] de Phone Number [facility] * (ABNORMAL) BASIC METABOLIC PANEL,RANDOM - PMC (12/12/2018 22:06 EDT) [facility] Sodium 120(L) 136 - 145 mEq/L 12/12/2018 23:00 [facility] Potassium 4.6 3.5 - 5.1 mEq/L 12/12/2018 23:00 [facility] Chloride 86(L) 96 - 107 mEq/L 12/12/2018 23:00 [facility] CO2 Total 25.2 21 - 32 mEq/L 12/12/2018 23:00 [facility] Anion Gap 8.8 mEq/L 12/12/2018 23:00 [facility] BUN 7 7 - 25 mg/dl 12/12/2018 23:00 [facility] Creatinine 0.61(L) 0.7 - 1.30 mg/dl 12/12/2018 23:00 [facility] Estimated GFR >60 >60 12/12/2018 23:02 [facility] Comment: EGFR UNITS: mL/min/1.73 m 2 CKD-EPI Equation used to calculate. GLUCOSE,RANDOM - PMC 89 70 - 180 mg/dl 12/12/2018 23:00 EDT [facility] Calcium 8.1(L) 8.5 - 10.5 mg/dl 12/12/2018 23:00 EDT [facility] 12/12/2018 22:0 6 EDT 12/12/2018 22:18 EDT Wang Vila MD CHEMISTRY & BLOOD GA S ORDERABLES [facility] documented in this encounter Visit Diagnoses Not on filedocumented in this encounter Care Teams Yard Person Relationship Specialty Start Date End Date Katia Stone, PABijalC [address] [place] [phone] PCP - General 05/02/17 documented as of this encounter
--- OUTSIDE RECORDS SUMMARY | 2023-12-23 09:36 | XMS_ITS | Encounter Summary ---
Author Organization [facility] Address [address] [place] [address] Care Team Providers Care Appraisal Manager Name Role Phone Katia Stone PA-C Primary Care Provider +1- [phone] Encounter Details Date Type Department Care Team (Late st Contact Info) Description 06/25/2018 Historical Results Only [facility] [address] [place] [address] [place], [place] [address] Leonard Crespo MD [address] [place] [address],[address] [place], [place] [phone] Social History Tobacco Use Types Packs/Day Years [...] IGE - PMC <0.35 06/29/2018 15:54 EDT [facility] Comment: Class 0 (Negative <0.35) Test Performed by: [place] [address] 06/25/2018 18:5 0 EDT 06/25/2018 18:56 EDT Leonard Crespo MD CHEMISTRY & BLOOD GA S ORDERABLES [facility] * ENGLISH MAXWELL IGE - PMC (06/25/2018 18:50 EDT) ENGLISH MAXWELL IGE <0.35 06/29/2018 15:54 EDT [facility] Comment: Class 0 (Negative <0.35) Test Performed by: [address] [id number] 06/25/2018 18:5 0 EDT 06/25/2018 18:56 EDT Leonard Crespo MD CHEMISTRY & BLOOD GA S ORDERABLES [facility] * HOUSE DUST MITES/D.P., IGE - PMC (06/25/2018 18:50 EDT) HOUSE DUST MITES/D.P., IGE - PMC <0.35 06/29/2018 15:54 EDT [facility] Comment: Class 0 (Negative <0.35) Test Performed by: [address] [id number] 06/25/2018 18:5 0 EDT 06/25/2018 18:56 EDT Leonard Crespo MD CHEMISTRY & BLOOD GA S ORDERABLES Performing Organization Address City/[facility]/ZIP Co de Phone Number [facility] * [facility] ALLERGEN,S - PMC (06/25/2018 18:50 EDT) ALTERNARIA TENUIS, IGE - PMC <0.35 06/29/2018 15:54 [facility] Comment:Class 0 (Negative <0 .35) CLAD - PMC <0.35 06/29/2018 15:54 [facility] Comment:Class 0 (Negative <0 .35) HOUSE DUST MITE/D.F., IGE <0.35 06/29/2018 15:54 EDT [facility] Comment: Class 0 (Negative <0.35) Test Performed by: [facility] - [address] [address] CAT - PMC <0.35 06/29/2018 15:54 [facility] Comment:Class 0 (Negative <0 .35) DOG DANDER, IGE - PMC <0.35 06/29/2018 15:54 [facility] Comment:Class 0 (Negative <0 .35) YAYA GRASS IGE - PMC <0.35 06/29/2018 15:54 [facility] Comment:Class 0 (Negative <0 .35) LAMBS QUARTER, IGE - PMC <0.35 06/29/2018 15:54 [facility] Comment:Class 0 (Negative <0 .35) OAK - PMC <0.35 06/29/2018 15:54 [facility] Comment:Class 0 (Negative <0 .35) RAGWEED, SHORT, IGE - PMC <0.35 06/29/2018 15:54 [facility] Comment:Class 0 (Negative <0 .35) CONNER GRASS, IGE - PMC <0.35 06/29/2018 15:54 [facility] Comment:Class 0 (Negative <0 .35) 06/25/2018 18:5 0 EDT 06/25/2018 18:56 EDT Leonard Crespo MD CHEMISTRY & BLOOD GA S ORDERABLES [facility] * (ABNORMAL) HEPATIC & CMP COMBO,FASTING - PMC (06/25/2018 18:50 EDT) Sodium 130(L) 136 - 145 06/25/2018 19:38 [facility] Potassium 4.3 3.5 - 5.1 06/25/2018 19:38 [facility] Chloride 93(L) 96 - 107 06/25/2018 19:38 [facility] CO2 Total 26.4 21 - 32 06/25/2018 19:38 [facility] Anion Gap 10.6 06/25/2018 19:38 [facility] BUN 15 7 - 25 06/25/2018 19:38 [facility] Creatinine 0.86 0.7 - 1.30 06/25/2018 19:38 [facility] Estimated GFR >60 >60 06/25/2018 19:38 [facility] Comment: EGFR UNITS: mL/min/1.73 m 2 CKD-EPI Equation used to calculate. Glucose 89 FASTIN -99 06/25/2018 19:38 [facility] Calcium 8.6 8.5 - 10.5 06/25/2018 19:38 [facility] CALCIUM,CORRECTE D - PMC 9.0 8.5 - 10.5 06/25/2018 19:38 [facility] BILIRUBIN - PMC 0.30 0.00 - 1.00 06/25/2018 19:38 [facility] AST 55(H) 15 - 37 06/25/2018 19:38 [facility] ALT 65 12 - 78 06/25/2018 19:38 [facility] Alkaline Phosphatase 115 46 - 116 06/25/2018 19:38 [facility] Total Protein 7.5 6.4 - 8.2 06/25/2018 19:38 [facility] Albumin 3.5 3.4 - 5.0 06/25/2018 19:38 [facility] GLOBULIN - PMC 4.0 06/25/2018 19:38 [facility] ALBUMIN/GLOBULIN RATIO - PMC 0.8 06/25/2018 19:38 [facility] 06/25/2018 18:5 0 EDT 06/25/2018 18:56 EDT Leonard Crespo MD CHEMISTRY & BLOOD GA S ORDERABLES [facility] documented in this encounter Visit Diagnoses Not on filedocumented in this encounter Care Teams Appraisal Manager Relationship Specialty Start Date End Date Katia Stone, PABijalC [address] [place] [phone] PCP - General 05/02/17 documented as of this encounter
--- OUTSIDE RECORDS SUMMARY | 2023-12-23 09:36 | XMS_ITS | Encounter Summary ---
Author Organization [facility] Address [address] [place] [address] Care Team Providers Care Rheumatology Specialist Name Role Phone Katia Stone PA-C Primary Care Provider +1- [phone] Encounter Details Date Type Department Care Team (Late st Contact Info) Description 06/11/2017 Results Only Imaging [facility] - [address] [id number] Michael Pratt MD [facility] [place] [address] Social History Tobacco Use Types [...] - there is no report. Procedure Note PEARL MAKER, IMAGING - 06/13/2017 This is an outside study - there is no report. Michael Pratt MD IMG OTHER IMAGING OR DERABLES documented in this encounter Visit Diagnoses Not on filedocumented in this encounter Care Teams Rheumatology Specialist Relationship Specialty Start Date End Date Katia Stone, PABijalC [address] [place] [address] PCP - General 05/02/17 documented as of this encounter
--- OUTSIDE RECORDS SUMMARY | 2023-12-23 09:36 | XMS_ITS | Encounter Summary ---
Author Organization [facility] Address [address] [place] [address] Care Team Providers Care Dry Drug Worker Name Role Phone Katia Stone PA-C Primary Care Provider +1- [phone] Reason for Visit * Reason Onset Date Comments Other 06/18/2017 discharged on 06.03.15 Follow-up 07/16/2017 Encounter Details Date Type Department Care Team (Late st Contact Info) Description 06/18/2017 Telephone [facility] Cardiology - [address] [place] [address] Pierre Rubio MD [address] [facility] [address] [place] [address] Other (discharged on 06.03.15); Follow-up [...] - 07/16/2017 1310 EDT Riley WINSTON at [facility] called. States : Wt 2 [...] [facility] [place], stated colchicine has run out- not sure if pt needs a refill or not. States he called pt's PCP in [place] and that MD wants to know if RN should draw labs? Please call back JOAN as he is with the pt now. Routing to Giovanni Sam NP and Belinda Eddy RN and will also go speak with one of them as well. Let Riley WINSTON know that Belinda Eddy would call back. * Telephone Encounter - Isidra Telles - 07/16/2017 1257 EDT [facility], Weight at 224, has been fluctuating Limited edema Has been winded Less endurance Cough has green secretions Some slight harsh breathing sounds Questions: Blood Work? Prednisone Taper seems to be off, will need a refill if continuing in the same manner * Telephone Encounter - Belinda Falk RN - 06/18/2017 1630 EDT Spoke with Riley horta [facility] mentioned call placed to patient to confirm medication taking. Per patient he was taking Torsemide 40 mg daily and was not taking lasix. Per Bill this was differnet then what was discussed. Referred home Health to discuss care with Shailesh Torres MD in [place] and Katia Mccallum PA-C, [facility]. * Telephone Encounter - Belinda Falk RN [...] on 06.16.17. He has been feeling ok. [facility] health is calling to discuss his [...] on filedocumented in this encounter Care Teams Dry Drug Worker Relationship Specialty Start Date End Date Katia Stone PA-C [address] [place] [phone] PCP - General 05/02/17 documented as of this encounter
--- OUTSIDE RECORDS SUMMARY | 2023-12-23 09:37 | XMS_ITS | Encounter Summary ---
[place] [address] Care Team Providers Care Manager Secondary Name Role Phone Katia Stone Primary Care Provider [phone] Encounter Details Date Type Department Care Team (Late st Contact Info) Description 12/16/2023 1:30 PM EDT Telehealth notes [place] [address] Telehealth, Neurology None Social History Tobacco Use [...] AM EST Hospital Encounter Non-[place] [address] Arrived documented as of this encounter Visit Diagnoses Not on filedocumented in this encounter Care Teams Manager Secondary Relationship Specialty Start Date End Date Katia Stone PA [address] [place] [phone] PCP - General General Internal Medicine 11/10/18 documented as of this encounter
--- OUTSIDE RECORDS SUMMARY | 2023-12-23 09:37 | XMS_ITS | Encounter Summary ---
Author Organization [facility] Address [facility] [address] Care Team Providers Care Crab Butcher Name Role Phone Katia Stone Primary Care Provider Encounter Details Date Type Department Care Team (Latest Contact Info) Description 11/06/2023 10:00 AM EDT - 11/06/2023 11:59 PM EDT Hospital Encounter Non-[place] [address] Discharge Disposition: Home Social History Tobacco Use [...] CARE CENTER Hospital Encounter Non-Invasive [place] [address] Arrived documented as of this encounter Procedures [...] on filedocumented in this encounter Care Teams Crab Butcher Relationship Specialty Start Date End Date Katia Stone PA [address] [place] [phone] PCP - General General Internal Medicine 11/10/18 documented as of this encounter
--- OUTSIDE RECORDS SUMMARY | 2023-12-23 09:37 | XMS_ITS | Encounter Summary ---
Author Organization [facility] Address [address] [place] [address] Care Team Providers Care Dish Stacker Name Role Phone Katia Stone PA-C Primary Care Provider [phone]- [phone] Reason for Referral * Follow Up (3 - 10 Business Days) - New Request Specialty Diagnoses / Procedures Referred By Contac t Referred To Contact Diagnoses Hyponatremia Pericardial effusion Heart block Acute on chronic diastolic congestive heart failure (HCC-CMS) Acute pericarditis, unspecified type Vini Mathis MD [address] [place] [phone] Katia Stone PA-C [facility] [address] [place] [address] Referral ID Status Reason Start Date Expiration Date Visits Requested Visits Authorized [id number] New Request Continuity of Care 05/27/2017 1 1 Question Answer Reason for Request: post hosp f/u visit Reason for Visit * Reason Comments Chest Pain Patient arrives as ge[place] pan from [facility] for pleuritic chest pain and new diagnosis CHF after pacemaker placement at [facility] two weeks ago. Dyspnea with exertion, breath sounds course crackles. Alert and oriented. Encounter Details Date Type Department Care Team (Late st Contact Info) Description 05/20/2017 23:34 EDT - 05/27/2017 14:50 EDT Hospital Encounter [facility] Cardiac/Telemetry Unit [address] [place] [address] Laly Kim MD [address] [phone] Akash Reyes MD [address] [place] [phone] Andres Luis MD [address] [place] [phone] Tony Rosenberg MD [address] [place] [phone] Seng Brody Sa, MD [address] [place] [phone] Hyponatremia (Primary Dx); Pericardial effusion; Heart block; [...] congestive heart failure ([facility]-HCC) 05/01/2017 05/27/2017 Hospital Course David Mera is [...] amlodipine and chlorthalidone. ?? He presented to [facility] ED 05/20 with orthopnea and cough, and CT chest showed pericardial effusion. He was transferred to [facility] ED for pericardiocentesis. In the ED [...] Component Value Units Date/Time Respiratory Virus Detection [[id number]] Collected: 05/26/17 1157 Lab Status: Preliminary result Specimen: Nasopharynx Updated: 05/27/17 1425 Result No RSV, Influenza A, or Influenza B detected by PCR Result No Metapneumovirus detected by PCR. Result Delay in some virus(es) result(s), testing being repeated and/or confirmed. Anaerobe Culture/Smear (inc. aerobes), Fluid [[id number]] Collected: 05/23/17 0747 Lab Status: Preliminary result Specimen: FOSMIC from Pericardial Fluid Updated: 05/25/17 1146 Gram Smear Result Few Polys No bacteria seen Result No growth Fungus Culture/Smear, Other [[id number]] Collected: 05/23/17 0747 Lab Status: Preliminary result [...] 05/01/2017 Discharge Follow Up Appointments Scheduled with [facility] Upcoming Appointments Jun 04, 2017 16:00 EDT Post Hospital Visit with Tony Rosenberg MD [facility] Cardiology [facility] (--) [address] [facility] [address] Appointments Outside of [facility] We Will Schedule Follow-up appointments and procedures Amb Consult/Follow Up Primary Care Physician Reason for Request: post hosp f/u visit Authorizing Provider: Vini Mathis MD Additional Information: Cardiology follow up FriJune 04, 2017 at [address] Justin Rosenberg at the [facility]. You should be notified of appointment time. If you do not head by FriJune 01, please call [phone] to find out the time. Cardiology follow up on June 16, 2017 at 2:[address] Torres at the [facility] haspreviously scheduled. Clinic number [id number] Studies We Will Schedule Follow-up labs and [...] Vini Mathis MD Internal Medicine PGY-1 Pager: [phone] 05/27/2017 20:52 Associated attestation - Seng Brody Sa, MD - 05/30/2017 1206 EDT Attending Attestation: I saw and evaluated the patient 05/27. I discussed the case with the resident/FURNACE HAND/fellow and agree with the findings and plan as documented above. Seng person Sa, MD Cardiac Electrophysiology documented in this encounter Discharge Instructions * Appointments* Coleen Yañez NP - 05/27/2017 10:25 EDT Cardiology follow up FriJune 04, 2017 at [address] Justin Rosenberg at the [facility]. You should be notified of appointment time. If you do not head by FriJune 01, please call [phone] to find out the time. Cardiology follow up on June 16, 2017 at 2:[address] Torres at the [facility] haspreviously scheduled. Clinic number [id number] * Discharge Instr - Other Orders* Melida [...] Care Everywhere. * HEART FAILURE: AVOIDING TRIGGERS ([place]) documented in this encounter Medications at Time [...] knees MSK: Normal bulk and tone. 5/5 installment loan collector strength SKIN: No lesions, bruises, or rashes [...] initially hypertensive, but now normo-hypotensive. - Holding ENVIRONMENTAL FIELD TEAM MEMBER lisinopril ?? Chronic diastolic heart failure: Volume [...] 05/26/17. I discussed the case with the resident/FURNACE HAND/fellow and agree with the findings and plan [...] knees MSK: Normal bulk and tone. 5/5 installment loan collector strength SKIN: No lesions, bruises, or rashes [...] initially hypertensive, but now normo-hypotensive. - Holding ENVIRONMENTAL FIELD TEAM MEMBER lisinopril ?? Chronic diastolic heart failure: currently [...] knees MSK: Normal bulk and tone. 5/5 installment loan collector strength SKIN: No lesions, bruises, or rashes [...] initially hypertensive, but now normo-hypotensive. - Holding ENVIRONMENTAL FIELD TEAM MEMBER lisinopril ?? Chronic diastolic heart failure: currently [...] Landry M.D., PGY-1 Internal Medicine Resident Pager [phone] 05/24/2017 10:04 Attestation statement: Supervising Physician I [...] knees MSK: Normal bulk and tone. 5/5 installment loan collector strength SKIN: No lesions, bruises, or rashes [...] initially hypertensive, but now normo-hypotensive. - Holding ENVIRONMENTAL FIELD TEAM MEMBER lisinopril ?? Chronic diastolic heart failure: currently [...] Landry M.D., PGY-1 Internal Medicine Resident Pager [phone] 05/23/2017 9:11 Attestation statement: Supervising Physician. I [...] knees MSK: Normal bulk and tone. 5/5 installment loan collector strength SKIN: No lesions, bruises, or rashes [...] initially hypertensive, but now normo-hypotensive. - Holding ENVIRONMENTAL FIELD TEAM MEMBER lisinopril ?? Chronic diastolic heart failure: currently [...] Landry M.D., PGY-1 Internal Medicine Resident Pager [phone] 05/22/2017 8:50 Attestation statement: I saw and [...] Chart: Yes, previous copy on file @ [facility] DIRECTIVES FOR FINANCES: TRANSPORTATION: Transportation: Family CULTURAL, YARSANI and/or LANGUAGE factors affecting health care/discharge planning: [...] AID - [address] - [place], [place] - [address] [facility] [phone] [facility] ([facility]) - [facility] [place] - [address] [facility] [address] [facility] [address] Home Health: Other: POST HOSPITAL TRANSITION PLAN: Plan d/c to his son, Catarina, house in [place] Desi Villatoro RN 05/21/2017 13:12 * Desi Villatoro RN - 05/21/2017 0923 EDT 05/21: Met with patient. Dr. Rosenberg is at the bedside. Plan will be pericardiocentesis and reposition of pacer lead. I will follow up with patient later today. eDsi Villatoro RN [id number] * Jayne Landry MD - 05/21/2017 0719 EDT Cardiology Progress note Service Date: 05/21/2017 [...] knees MSK: Normal bulk and tone. 5/5 installment loan collector strength SKIN: No lesions, bruises, or rashes [...] will hold lisinopril for now. - Holding ENVIRONMENTAL FIELD TEAM MEMBER lisinopril ?? Chronic diastolic heart failure: currently volume overloaded. Needs diuresis after resolution of pericardial effusion. - Holding Lasix/chlorthalidone in setting of pericardial effusion - Strict I&O - 1.2 L fluid restriction as above - Daily weights - Daily BUN, Cr VTE Prophylaxis Held pending pericardiocentesis Discharge Plan Uncertain at this time Jayne Landry M.D., PGY-1 Internal Medicine Resident Pager [phone] 05/21/2017 8:01 * Ester Yanes MD - 05/21/2017 0693 EDT PATIENT CONSENT TO CARDIOVASCULAR CATHETERIZATION OR [...] aft er the procedure. Ester Yanes MD Spray Painting Machine Operator PGY-5 05/20/2017 23:30 documented in this [...] smoker, 1-2 beers 1-2x/week, lives alone in [place] Allergies: Reviewed No Known Allergies Exam: General [...] will hold lisinopril for now. - Holding ENVIRONMENTAL FIELD TEAM MEMBER lisinopril Chronic diastolic heart failure: with some [...] outpatient, avoid thiazide diuretics Vladimir Crowe MD [facility] Transplant Inspector [employer] Teacher of Transplant Programs 05/25/2017 11:46 * Vladimir [...] the assessment and plan. Vladimir Crowe MD [facility] Transplant Inspector [employer] Teacher of Transplant Programs 05/24/2017 12:32 * Elliot [...] TIME. PT IN ER ROOM 8, ON CIVIL PROCESS SERVER, NIBP, AND SPO2, ASSESSMENT NOTED, * Tony Navarro - 05/20/2017 2247 EDT Blood drawn via saline lock per protocol, tiger tube(s) sent to lab per order. * Laly Kim MD - 05/20/2017 2224 EDT DOS: 05/20/2017 Chief Complaint Patient presents with ??? Chest Pain Patient arrives as transfer from [facility] for pleuritic chest pain and new diagnosis CHF after pacemaker placement at [facility] two weeks ago. Dyspnea with exertion, breath sounds course crackles. Alert and oriented. HPI HPI Comments: I, Deana Bingham, am scribing for Laly Kim, * while he/she is personallyperforming the service. Deana Bingham 05/20/2017 22:25 David Mera is a 66 y.o. male with a history of heart block AV third degree, HTN, acute on chronic CHF, who presents as a transfer from [place] with pericardial effusion. Pt had pacemaker placed [...] appears to be a good tracing. Attending logistics loss prevention manager not available for acute interpretation. Radiology orders: [...] for problems Not Given Final Accession number [id number] Final CREATININE, URINE RANDOM SODIUM, URINE RANDOM [...] Evaluated in the ED by the music librarian. ASSESSMENT AND PLAN Final diagnoses: Hyponatremia Pericardial effusion DISPOSITION: Admitted Discussed case with cardiology resident/fellow (). Not evaluated by admitting attending in ED. Admitted to telemetry for further evaluation and definitive management. Condition on admission: Serious.Pain level at time of admission: 0 (). PCP: Katia Mccallum [facility] Number of Diagnoses or Management Options Hyponatremia: [...] Care - Sigrid Gordon RN - 05/25/2017 0586 EDT Problem: Daily Care [...] Care - Cici Tapia RN - 05/24/2017 3914 EDT Problem: Daily Care Plan Goals Goal: [...] and pleuritic chest pain. Transferred from [facility]. Dx of peridcardial effusion, HTN, CHF, [...] on chronic diastolic congestive heart failure (CMS-HCC) ([facility]) Acute pericarditis, unspecified type Ordered: 05/27/2017 documented [...] 8:40 EDT) 06/02/2017 8:40 EDT Scan 2 Pipeman PROCEDURE/MINOR VELMA GICAL ORDERABLES * ECG REPORT - SCANNED (06/01/2017 12:46 EDT) 06/01/2017 12:4 6 EDT Scan 2 Pipeman PROCEDURE/MINOR VELMA GICAL ORDERABLES * ECG REPORT - SCANNED (05/30/2017 11:59 EDT) 05/30/2017 11:5 9 EDT Scan 2 Pipeman PROCEDURE/MINOR VELMA GICAL ORDERABLES * ECG REPORT - SCANNED (05/30/2017 11:17 EDT) 05/30/2017 11:1 7 EDT Scan 2 Pipeman PROCEDURE/MINOR VELMA GICAL ORDERABLES * ECG REPORT - SCANNED (05/30/2017 11:17 EDT) 05/30/2017 11:1 7 EDT Scan 2 Pipeman PROCEDURE/MINOR VELMA GICAL ORDERABLES * ECG REPORT - SCANNED (05/28/2017 10:02 EDT) 05/28/2017 10:0 2 EDT Scan 2 Pipeman PROCEDURE/MINOR VELMA GICAL ORDERABLES * ECG REPORT - SCANNED (05/27/2017 13:22 EDT) 05/27/2017 13:2 2 EDT Scan 2 Pipeman PROCEDURE/MINOR VELMA GICAL ORDERABLES * EKG 12-LEAD (05/27/2017 7:37 EDT) 05/27/2017 7:[address] [facility] EKG - 06/01/2017 12:41 EDT ? [facility] ? Test Date: ?2017-05-27 Pat Name: ? DAVID MERA ?Department: ?? JAME Chao ? Room: ? MW531 Gender: ? M ?Igniter Assembler: ?? [id number] : ?1950 ? Requested By: PRADIP MONET Order Number: [id number] ? Martha OAKES: ?? PIERRE RUBIO MD ? Measurements Intervals ?[place] ? Rate: ? 69 ? P: ?23 DE: ? 175 ?QRS: ?-58 QRSD: ? 193 [...] Note Pierre Rubio MD - 06/01/2017 [facility] Test Date: 2017-05-27 Pat Name: DAVID HULLEY Department: [place] [address] Room: [facility] Gender: M Igniter Assembler: [id number] : 1950 Requested By: PRADIP MONET Order Number: [id number] Reading MD: PIERRE RUBIO MD Measurements Intervals [place] Rate: 69 P: 23 DE: 175 QRS: -58 QRSD: 193 T: 189 QT: 528 QTc: 568 Interpretive Statements SINUS RHYTHM WITH ATRIAL TRACKING and VENTRICULAR PACING Compared to ECG 05/26/2017 07:29:50 No significant changes I reviewed the tracing and have either agreed or edited the findings inthis report. Electronically Signed On 06-01-17 12:41:22 EDT by PIERRE YEBOAH. Maria Antonia Zimmerman MD CARDIAC ECG ORDERABL ES Performing Organization Address [facility] de Phone Number [facility] EKG * (ABNORMAL) ELECTROLYTES (05/27/2017 5:57 EDT) Sodium 129(L) 136 - 145 mEq/L 05/27/2017 6:[address] [facility] Potassium 3.9 3.5 - 5.0 mEq/L 05/27/2017 6:[address] [facility] Chloride 87(L) 96 - 110 mEq/L 05/27/2017 6:[address] [facility] CO2 33(H) 22 - 32 mEq/L 05/27/2017 6:[address] [facility] Blood specimen (specimen) BLOOD SPECIMEN / Unknown 05/27/2017 5:57 EDT 05/27/2017 6:14 EDT Jayne Pozo MD CHEMISTRY & BLOOD GA S ORDERABLES Performing Organization Address [facility] de Phone Number [facility] [address] [place] [address] * BUN (05/27/2017 5:57 EDT) BUN 13 10 - 26 mg/dl 05/27/2017 6:[address] [facility] Blood specimen (specimen) BLOOD SPECIMEN / Unknown 05/27/2017 5:57 EDT 05/27/2017 6:14 EDT Jayne Pozo MD CHEMISTRY & BLOOD GA S ORDERABLES Performing Organization Address [facility] de Phone Number [facility] [address] [place] [address] * MAGNESIUM (05/27/2017 5:57 EDT) Magnesium 1.9 1.7 - 2.8 mg/dl 05/27/2017 6:[address] [facility] Blood specimen (specimen) BLOOD SPECIMEN / Unknown 05/27/2017 5:57 EDT 05/27/2017 6:14 EDT Jayne Pozo MD CHEMISTRY & BLOOD GA S ORDERABLES Performing Organization Address [facility] Co de Phone Number [facility] [address] [place] [address] * (ABNORMAL) CREATININE (05/27/2017 5:57 EDT) Creatinine 0.63(L) 0.66 - 1.25 mg/dl 05/27/2017 6:[address] [facility] GFR, Calculated 103 >60 ml/min/1.7 3m2 05/27/2017 6:[address] [facility] Comment: eGFR calculated using CKD-EPI equation for non Americans. Multiply eGFR by 1.16 for Americans. Blood specimen (specimen) BLOOD SPECIMEN / Unknown 05/27/2017 5:57 EDT 05/27/2017 6:14 EDT Jayne Pozo MD CHEMISTRY & BLOOD GA S ORDERABLES Performing Organization Address [facility] Co de Phone Number [facility] [address] [place] [address] * (ABNORMAL) HEMAGRAM (05/27/2017 5:57 EDT) WBC 6.74 4.0 - 10.4 K/cmm 05/27/2017 6:28 [facility] RBC 3.43(L) 4.36 - 5.78 M/cmm 05/27/2017 6:28 [facility] Hemoglobin 11.3(L) 13.8 - 17.3 gm/dl 05/27/2017 6:28 [facility] HCT 32.2(L) 39.5 - 50.2 % 05/27/2017 6:28 [facility] MCV 94 81 - 95 fl 05/27/2017 6:28 [facility] MCH 32.9 27.6 - 33.0 pg 05/27/2017 6:28 [facility] MCHC 35.1 32.8 - 36.4 gm/dl 05/27/2017 6:28 [facility] RDW-CV 11.3 <14.2 % 05/27/2017 6:[address] [facility] RDW-SD 38.4 <46.0 fl 05/27/2017 6:[address] [facility] PLT 308 141 - 377 K/cmm 05/27/2017 6:[address] [facility] MPV 10.4 9.5 - 12.7 fl 05/27/2017 6:[address] [facility] Blood specimen (specimen) BLOOD SPECIMEN / Unknown 05/27/2017 5:57 EDT 05/27/2017 6:14 EDT Jayne Pozo MD HEMATOLOGY & PF4 ORD ERABLES Performing Organization Address [facility] Co de Phone Number [facility] [address] [place] [address] * (ABNORMAL) NT PRO BNP (05/26/2017 17:55 EDT) NT Pro BNP 2,710(H) <300 pg/ml 05/26/2017 18:[address] [facility] Comment: Slight hemolysis Results [...] BLO OD GAS ORDERABLES Performing Organization Address [facility] Co de Phone Number [facility] [address] [place] [address] * (ABNORMAL) ELECTROLYTES (05/26/2017 17:55 EDT) Sodium 129(L) 136 - 145 mEq/L 05/26/2017 18:[address] [facility] Comment:Slight hemolysis Potassium 4.0 3.5 - 5.0 mEq/L 05/26/2017 18:[address] [facility] Comment: Slight hemolysis Hemolysis may elevate potassium result. Chloride 84(L) 96 - 110 mEq/L 05/26/2017 18:[address] [facility] Comment:Slight hemolysis CO2 35(H) 22 - 32 mEq/L 05/26/2017 18:[address] [facility] Comment:Slight hemolysis Blood specimen (specimen) BLOOD SPECIMEN / Unknown 05/26/2017 17:55 EDT 05/26/2017 18:18 EDT Jayne Pozo MD CHEMISTRY & BLOOD GA S ORDERABLES Performing Organization Address [facility] Co de Phone Number [facility] [address] [place] [address] * INPATIENT ADD-ON (05/26/2017 15:20 EDT) Tests to be added BNP 05/26/2017 15:[address] [facility] Number for problems [id number] 05/26/2017 15:[address] [facility] Accession number CALLED M5 WITH INABILITY TO PERFORM ADD ON DUE TO NO SUITABLE SAMPLE [id number] 05/26/2017 15:[address] [facility] TOPOGRAPHY UNKNOWN / Unknown 05/26/2017 15:20 EDT 05/26/2017 15:31 EDT Vini Mathis MD HEMATOLOGY & PF4 OR DERABLES Performing Organization Address City/[facility] Co de Phone Number [facility] [address] [place] [address] * LEGIONELLA ANTIGEN DETECTION, URINE (05/26/2017 14:04 EDT) Result No Legionella pneumophila serogroup 1 antigen detected. 05/26/2017 15:[address] [facility] Specimen of unknown material (specimen) URINE / Unknown 05/26/2017 14:04 EDT 05/26/2017 14:42 EDT Comment:Clean catch specimen Сергей Damico MD MICROBIOLOGY - GENER AL ORDERABLES Performing Organization Address City/[facility]/ZIP Co de Phone Number [facility] [address] [place] [address] * STREPTOCOCCUS PNEUMONIAE ANTIGEN, URINE (05/26/2017 14:04 EDT) Result No Strep pneumoniae antigen detected. 05/26/2017 15:[address] [facility] Specimen of unknown material (specimen) URINE / Unknown 05/26/2017 14:04 EDT 05/26/2017 14:42 EDT Comment:Clean catch specimen Сергей Damico MD MICROBIOLOGY - GENER AL ORDERABLES Performing Organization Address [facility] Co de Phone Number [facility] [address] [place] [address] * ECG REPORT - SCANNED (05/26/2017 12:53 EDT) 05/26/2017 12:5 3 EDT Scan 2 Pipeman PROCEDURE/MINOR VELMA GICAL ORDERABLES * CHEST PA [...] agree with the findings. Сергей Damico MD [facility] DIAGNOSTIC IMAGI NG ORDERABLES * BACTERIAL CULTURE/SMEAR, RESPIRATORY (05/26/2017 12:14 EDT) Gram Smear Result Mod Polys 05/26/2017 14:[address] [facility] Gram Smear Result Mod Squamous epithelial cells 05/26/2017 14:[address] [facility] Gram Smear Result Mod Mixed gram positive and gram negative organisms 05/26/2017 14:[address] [facility] Gram Smear Result Smear suggests contamination with saliva. ??Please submit additional specimen if clinically indicated. 05/26/2017 14:[address] [facility] Result See gram smear results. 05/26/2017 14:[address] [facility] Result Credit Issued 05/26/2017 14:[address] [facility] Specimen of unknown material (specimen) SPUTUM / Unknown 05/26/2017 12:14 EDT 05/26/2017 13:50 EDT Сергей Damico MD MICROBIOLOGY - GENER AL ORDERABLES Performing Organization Address [facility] Co de Phone Number [facility] [address] [place] [address] * RESPIRATORY VIRUS DETECTION (05/26/2017 11:57 EDT) Result No RSV, Influenza A, or Influenza B detected by PCR 05/28/2017 14:[address] [facility] Result No Metapneumovirus detected by PCR. 05/28/2017 14:[address] [facility] Result No Parainfluenza Virus Type 1,2 or 3 detected by PCR. This assay may have decrease sensitivity for Parainfluenza Virus Type 3. 05/28/2017 14:[address] [facility] NASOPHARYNGEAL STRUCTURE / Unknown 05/26/2017 11:57 EDT 05/26/2017 12:19 EDT Сергей Damico MD MICROBIOLOGY - GENER AL ORDERABLES Performing Organization Address City/[facility]/ZIP Co de Phone Number [facility] [address] [place] [address] * ECHOCARDIOGRAM LIMITED (05/26/2017 11:16 EDT) Anatomical Region Laterality Modality Other 05/26/2017 11:1 6 EDT Narrative 05/26/2017 11:25 EDT *Interpreting Group:* *[facility]* [address] [place] [address] Date of study: 05/26/2017 Transthoracic Echocardiography M-mode, [...] Rosenberg MD ORDERING ?Tony Rosenberg MD PERFORMING ??[facility], REFERRING ?? Katia Mccallum *PROCEDURE DATA* Procedure information: ??The patient was identified by two identifiers. This study was interpreted by [facility]. Pertinent images [...] Andrade MD - 05/26/2017 *Interpreting Group:* *[facility]* [address] [place] [address] Date of study: 05/26/2017 Transthoracic Echocardiography M-mode, [...] [facility]. Pertinent images [...] 12-LEAD (05/26/2017 7:29 EDT) 05/26/2017 7:29 EDT [facility] EKG - 05/27/2017 13:18 EDT ? [facility] ? Test Date: ?2017-05-26 Pat Name: ? DAVID MERA ?Department: ?? [address] ? Room: ? MW531 Gender: ? M ?Igniter Assembler: ?? [id number] : ?1950 ? Requested By: PRADIP MONET Order Number: [id number] ? Reading MD: ?? PETER ROLF MD ? Measurements Intervals ?[place] ? Rate: ? 73 ? P: ? DE: ? 0 ?QRS: ?-45 QRSD: ? 192 [...] Laly Dela Cruz MD - 05/27/2017 [facility] Test Date: 2017-05-26 Pat Name: DAVID MERA Department: [place] [address] Room: [facility] Gender: M Igniter Assembler: [id number] : 1950 Requested By: PRADIP MONET Order Number: [id number] Reading MD: LALY DELA CRUZ MD Measurements Intervals [place] Rate: 73 P: DE: 0 QRS: -45 QRSD: 192 T: 176 [...] Antonia Zimmerman MD CARDIAC ECG ORDERABL ES [facility] E[facility] * (ABNORMAL) ELECTROLYTES (05/26/2017 5:57 EDT) Sodium 128(L) 136 - 145 mEq/L 05/26/2017 6:[address] [facility] Potassium 3.7 3.5 - 5.0 mEq/L 05/26/2017 6:[address] [facility] Chloride 85(L) 96 - 110 mEq/L 05/26/2017 6:[address] [facility] CO2 35(H) 22 - 32 mEq/L 05/26/2017 6:[address] [facility] Blood specimen (specimen) BLOOD SPECIMEN / Unknown 05/26/2017 5:57 EDT 05/26/2017 6:26 EDT Jayne Pozo MD CHEMISTRY & BLOOD GA S ORDERABLES Performing Organization Address City/[facility]/ZIP Co de Phone Number [facility] [address] [place] [address] * (ABNORMAL) BUN (05/26/2017 5:57 EDT) BUN 9(L) 10 - 26 mg/dl 05/26/2017 6:[address] [facility] Blood specimen (specimen) BLOOD SPECIMEN / Unknown 05/26/2017 5:57 EDT 05/26/2017 6:26 EDT Jayne Pozo MD CHEMISTRY & BLOOD GA S ORDERABLES Performing Organization Address City/[facility]/ZIP Co de Phone Number [facility] [address] [place] [address] * MAGNESIUM (05/26/2017 5:57 EDT) Magnesium 1.8 1.7 - 2.8 mg/dl 05/26/2017 6:[address] [facility] Blood specimen (specimen) BLOOD SPECIMEN / Unknown 05/26/2017 5:57 EDT 05/26/2017 6:26 EDT Jayne Pozo MD CHEMISTRY & BLOOD GA S ORDERABLES Performing Organization Address City/[facility] Co de Phone Number [facility] [address] [place] [address] * (ABNORMAL) CREATININE (05/26/2017 5:57 EDT) Creatinine 0.53(L) 0.66 - 1.25 mg/dl 05/26/2017 6:[address] [facility] GFR, Calculated 110 >60 ml/min/1.7 3m2 05/26/2017 6:54 [facility] Comment: eGFR calculated using CKD-EPI equation for non Americans. Multiply eGFR by 1.16 for Americans. Blood specimen (specimen) BLOOD SPECIMEN / Unknown 05/26/2017 5:57 EDT 05/26/2017 6:26 EDT Jayne Pozo MD CHEMISTRY & BLOOD GA S ORDERABLES [facility] [address] [place] [address] * (ABNORMAL) HEMAGRAM (05/26/2017 5:57 EDT) WBC 7.06 4.0 - 10.4 K/cmm 05/26/2017 6:33 [facility] RBC 3.20(L) 4.36 - 5.78 M/cmm 05/26/2017 6:33 [facility] Hemoglobin 10.7(L) 13.8 - 17.3 gm/dl 05/26/2017 6:33 [facility] HCT 30.0(L) 39.5 - 50.2 % 05/26/2017 6:33 [facility] MCV 94 81 - 95 fl 05/26/2017 6:33 [facility] MCH 33.4(H) 27.6 - 33.0 pg 05/26/2017 6:33 [facility] MCHC 35.7 32.8 - 36.4 gm/dl 05/26/2017 6:33 [facility] RDW-CV 11.3 <14.2 % 05/26/2017 6:33 [facility] RDW-SD 38.4 <46.0 fl 05/26/2017 6:33 [facility] PLT 306 141 - 377 K/cmm 05/26/2017 6:33 [facility] MPV 10.3 9.5 - 12.7 fl 05/26/2017 6:33 [facility] Blood specimen (specimen) BLOOD SPECIMEN / Unknown 05/26/2017 5:57 EDT 05/26/2017 6:26 EDT Jayne Pozo MD HEMATOLOGY & PF4 ORD ERABLES Performing Organization Address [facility] Co de Phone Number [facility] [address] [place] [address] * (ABNORMAL) ELECTROLYTES (05/25/2017 17:58 EDT) Sodium 130(L) 136 - 145 mEq/L 05/25/2017 18:[address] [facility] Potassium 3.6 3.5 - 5.0 mEq/L 05/25/2017 18:[address] [facility] Chloride 83(L) 96 - 110 mEq/L 05/25/2017 18:[address] [facility] CO2 36(H) 22 - 32 mEq/L 05/25/2017 18:[address] [facility] Blood specimen (specimen) BLOOD SPECIMEN / Unknown 05/25/2017 17:58 EDT 05/25/2017 18:03 EDT Jayne Pozo MD CHEMISTRY & BLOOD GA S ORDERABLES Performing Organization Address [facility] Co de Phone Number [facility] [address] [place] [address] * OSMOLALITY, URINE (05/25/2017 14:29 EDT) Osmolality, Ur 284 150 - 1,150 mos/kg 05/25/2017 15:[address] [facility] Urine specimen (specimen) URINE / Unknown 05/25/2017 14:29 EDT 05/25/2017 14:37 EDT Luciano Christian MD URINALYSIS ORDERABLE S Performing Organization Address [facility] Co de Phone Number [facility] [address] [place] [address] * URINE ELECTROLYTES (05/25/2017 14:29 EDT) Chloride, Ur 41 mEq/L 05/25/2017 15:[address] [facility] Comment: Reference Range: No reference range available Potassium, Urine 31.1 mEq/L 05/25/2017 15:[address] [facility] Sodium, Ur 81.0 mEq/L 05/25/2017 15:[address] [facility] Urine specimen (specimen) URINE / Unknown 05/25/2017 14:29 EDT 05/25/2017 14:37 EDT Luciano Christian MD URINALYSIS ORDERABLE S [facility] [address] [place] [address] * EKG 12-LEAD (05/25/2017 7:40 EDT) 05/25/2017 7:[address] [facility] E[facility] - 06/02/2017 8:35 EDT ? [facility] ? Test Date: ?2017-05-25 Pat Name: ? DAVID MERA ?Department: ?? [facility] 5 ? Room: ? MW531 Gender: ? M ?Igniter Assembler: ?? [id number] : ?1950 ? Requested By: PRADIP MONET Order Number: [id number] ? Reading MD: ?? SENG PERSON SA, MD ? Measurements Intervals ?[place] ? Rate: ? 76 ? P: ?35 DE: ? 218 ?QRS: ?-47 QRSD: ? 188 [...] Seng Brody Sa, MD - 06/02/2017 [facility] Test Date: 2017-05-25 Pat Name: DAVID MERA Department: JAME Chao Room: [facility] Gender: M Igniter Assembler: [id number] : 1950 Requested By: PRADIP MONET Order Number: [id number] Reading MD: SENG ROBLEDO Measurements Intervals [place] Rate: 76 P: 35 DE: 218 QRS: -47 QRSD: 188 T: 193 [...] CARDIAC ECG ORDERABL ES Performing Organization Address City/[facility]/ZIP Co de Phone Number [facility] * (ABNORMAL) ELECTROLYTES (05/25/2017 5:59 EDT) Sodium 127(L) 136 - 145 mEq/L 05/25/2017 7:[address] [facility] Potassium 3.7 3.5 - 5.0 mEq/L 05/25/2017 7:[address] [facility] Chloride 85(L) 96 - 110 mEq/L 05/25/2017 7:[address] [facility] CO2 36(H) 22 - 32 mEq/L 05/25/2017 7:[address] [facility] Blood specimen (specimen) BLOOD SPECIMEN / Unknown 05/25/2017 5:59 EDT 05/25/2017 6:23 EDT Jayne Pozo MD CHEMISTRY & BLOOD GA S ORDERABLES [facility] [address] [place] [address] * (ABNORMAL) BUN (05/25/2017 5:59 EDT) BUN 9(L) 10 - 26 mg/dl 05/25/2017 7:[address] [facility] Blood specimen (specimen) BLOOD SPECIMEN / Unknown 05/25/2017 5:59 EDT 05/25/2017 6:23 EDT Jayne Pozo MD CHEMISTRY & BLOOD GA S ORDERABLES [facility] [address] [place] [address] * MAGNESIUM (05/25/2017 5:59 EDT) Magnesium 1.7 1.7 - 2.8 mg/dl 05/25/2017 7:[address] [facility] Blood specimen (specimen) BLOOD SPECIMEN / Unknown 05/25/2017 5:59 EDT 05/25/2017 6:23 EDT Jayne Pozo MD CHEMISTRY & BLOOD GA S ORDERABLES Performing Organization Address [facility] Co de Phone Number [facility] [address] [place] [address] * (ABNORMAL) CREATININE (05/25/2017 5:59 EDT) Creatinine 0.54(L) 0.66 - 1.25 mg/dl 05/25/2017 7:[address] [facility] GFR, Calculated 109 >60 ml/min/1.7 3m2 05/25/2017 7:[address] [facility] Comment: eGFR calculated using CKD-EPI equation for non Americans. Multiply eGFR by 1.16 for Americans. Blood specimen (specimen) BLOOD SPECIMEN / Unknown 05/25/2017 5:59 EDT 05/25/2017 6:23 EDT Jayne Pozo MD CHEMISTRY & BLOOD GA S ORDERABLES Performing Organization Address [facility] Co de Phone Number [facility] [address] [place] [address] * (ABNORMAL) HEMAGRAM (05/25/2017 5:59 EDT) WBC 6.99 4.0 - 10.4 K/cmm 05/25/2017 6:36 [facility] RBC 3.16(L) 4.36 - 5.78 M/cmm 05/25/2017 6:36 [facility] Hemoglobin 10.5(L) 13.8 - 17.3 gm/dl 05/25/2017 6:36 [facility] HCT 29.5(L) 39.5 - 50.2 % 05/25/2017 6:36 [facility] MCV 93 81 - 95 fl 05/25/2017 6:36 [facility] MCH 33.2(H) 27.6 - 33.0 pg 05/25/2017 6:36 [facility] MCHC 35.6 32.8 - 36.4 gm/dl 05/25/2017 6:36 [facility] RDW-CV 11.2 <14.2 % 05/25/2017 6:36 [facility] RDW-SD 38.8 <46.0 fl 05/25/2017 6:36 [facility] PLT 290 141 - 377 K/cmm 05/25/2017 6:36 [facility] MPV 10.7 9.5 - 12.7 fl 05/25/2017 6:36 [facility] Blood specimen (specimen) BLOOD SPECIMEN / Unknown 05/25/2017 5:59 EDT 05/25/2017 6:23 EDT Jayne Pozo MD HEMATOLOGY & PF4 ORD ERABLES [facility] [address] [place] [address] * (ABNORMAL) ELECTROLYTES (05/24/2017 18:02 EDT) Sodium 127(L) 136 - 145 mEq/L 05/24/2017 18:40 [facility] Potassium 3.7 3.5 - 5.0 mEq/L 05/24/2017 18:40 [facility] Chloride 80(L) 96 - 110 mEq/L 05/24/2017 18:[address] [facility] CO2 37(H) 22 - 32 mEq/L 05/24/2017 18:[address] [facility] Blood specimen (specimen) BLOOD SPECIMEN / Unknown 05/24/2017 18:02 EDT 05/24/2017 18:16 EDT Jayne Pozo MD CHEMISTRY & BLOOD GA S ORDERABLES [facility] [address] [place] [address] * EKG 12-LEAD (05/24/2017 7:22 EDT) 05/24/2017 7:[address] [facility] - 05/28/2017 9:56 EDT ? [facility] ? Test Date: ?2017-05-24 Pat Name: ? DAVID MERA ?Department: ?? [facility] 5 ? Room: ? MW531 Gender: ? M ?Igniter Assembler: ?? [id number] : ?1950 ? Requested By: PRADIP MONET Order Number: [id number] ? Martha OAKES: ?? ERVIN WILHELM MD ? Measurements Intervals ?[place] ? Rate: ? 103 ?P: ?-19 DE: ? 232 ?QRS: ?-39 QRSD: ? 192 ?T: ?168 QT: ? 412 ? QTc: ?542 ? Interpretive Statements ELECTRONIC VENTRICULAR PACEMAKER Compared to ECG 05/23/2017 07:20:54 No significant changes I reviewed the tracing and have either agreed or edited the findings in this report. Electronically Signed On 05-28-17 09:56:53 EDT by ERVIN WILHELM MD. Procedure Note Ervin Wilhelm MD - 05/28/2017 [facility] Test Date: 2017-05-24 Pat Name: DAVID MERA Department: [facility] 5 Room: [facility] Gender: M Igniter Assembler: [id number] : 1950 Requested By: PRADIP MONET Order Number: [id number] Reading MD: ERVIN WILHELM MD Measurements Intervals [place] Rate: 103 P: -19 DE: 232 QRS: -39 QRSD: 192 T: 168 QT: 412 QTc: 542 Interpretive Statements ELECTRONIC VENTRICULAR PACEMAKER Compared to ECG 05/23/2017 07:20:54 No significant changes I reviewed the tracing and have either agreed or edited the findings inthis report. Electronically Signed On 05-28-17 09:56:53 EDT by ERVIN MARCH. Maria Antonia Zimmerman MD CARDIAC ECG ORDERABL ES Performing Organization Address [facility] Co de Phone Number [facility] * (ABNORMAL) ELECTROLYTES (05/24/2017 5:51 EDT) Sodium 128(L) 136 - 145 mEq/L 05/24/2017 6:[address] [facility] Potassium 3.9 3.5 - 5.0 mEq/L 05/24/2017 6:[address] [facility] Chloride 83(L) 96 - 110 mEq/L 05/24/2017 6:[address] [facility] CO2 36(H) 22 - 32 mEq/L 05/24/2017 7:[address] [facility] Blood specimen (specimen) BLOOD SPECIMEN / Unknown 05/24/2017 5:51 EDT 05/24/2017 6:19 EDT Jayne Pozo MD CHEMISTRY & BLOOD GA S ORDERABLES Performing Organization Address [facility] de Phone Number [facility] [address] [place] [address] * (ABNORMAL) BUN (05/24/2017 5:51 EDT) BUN 9(L) 10 - 26 mg/dl 05/24/2017 6:[address] [facility] Blood specimen (specimen) BLOOD SPECIMEN / Unknown 05/24/2017 5:51 EDT 05/24/2017 6:19 EDT Jayne Pozo MD CHEMISTRY & BLOOD GA S ORDERABLES Performing Organization Address [facility] de Phone Number [facility] [address] [place] [address] * MAGNESIUM (05/24/2017 5:51 EDT) Magnesium 1.7 1.7 - 2.8 mg/dl 05/24/2017 6:[address] [facility] Blood specimen (specimen) BLOOD SPECIMEN / Unknown 05/24/2017 5:51 EDT 05/24/2017 6:19 EDT Jayne Pozo MD CHEMISTRY & BLOOD GA S ORDERABLES [facility] [address] [place] [address] * (ABNORMAL) CREATININE (05/24/2017 5:51 EDT) Creatinine 0.59(L) 0.66 - 1.25 mg/dl 05/24/2017 6:[address] [facility] GFR, Calculated 105 >60 ml/min/1.7 3m2 05/24/2017 6:[address] [facility] Comment: eGFR calculated using CKD-EPI equation for non Americans. Multiply eGFR by 1.16 for Americans. Blood specimen (specimen) BLOOD SPECIMEN / Unknown 05/24/2017 5:51 EDT 05/24/2017 6:19 EDT Jayne Pzoo MD CHEMISTRY & BLOOD GA S ORDERABLES Performing Organization Address City/[facility]/ZIP Co de Phone Number [facility] [address] [place] [address] * (ABNORMAL) HEMAGRAM (05/24/2017 5:51 EDT) WBC 7.61 4.0 - 10.4 K/cmm 05/24/2017 6:[address] [facility] RBC 3.35(L) 4.36 - 5.78 M/cmm 05/24/2017 6:[address] [facility] Hemoglobin 11.0(L) 13.8 - 17.3 gm/dl 05/24/2017 6:[address] [facility] HCT 31.4(L) 39.5 - 50.2 % 05/24/2017 6:[address] [facility] MCV 94 81 - 95 fl 05/24/2017 6:[address] [facility] MCH 32.8 27.6 - 33.0 pg 05/24/2017 6:[address] [facility] MCHC 35.0 32.8 - 36.4 gm/dl 05/24/2017 6:[address] [facility] RDW-CV 11.4 <14.2 % 05/24/2017 6:[address] [facility] RDW-SD 39.0 <46.0 fl 05/24/2017 6:[address] [facility] PLT 273 141 - 377 K/cmm 05/24/2017 6:[address] [facility] MPV 10.9 9.5 - 12.7 fl 05/24/2017 6:[address] [facility] Blood specimen (specimen) BLOOD SPECIMEN / Unknown 05/24/2017 5:51 EDT 05/24/2017 6:19 EDT Jayne Pozo MD HEMATOLOGY & PF4 ORD ERABLES [facility] [address] [place] [address] * (ABNORMAL) ELECTROLYTES (05/23/2017 21:40 EDT) Sodium 128(L) 136 - 145 mEq/L 05/23/2017 22:[address] [facility] Potassium 3.6 3.5 - 5.0 mEq/L 05/23/2017 22:[address] [facility] Chloride 81(L) 96 - 110 mEq/L 05/23/2017 22:[address] [facility] CO2 38(H) 22 - 32 mEq/L 05/23/2017 22:[address] [facility] Blood specimen (specimen) BLOOD SPECIMEN / Unknown 05/23/2017 21:40 EDT 05/23/2017 21:45 EDT Jayne Pozo MD CHEMISTRY & BLOOD GA S ORDERABLES Performing Organization Address City/[facility] Co de Phone Number [facility] [address] [place] [address] * ECG REPORT - SCANNED (05/23/2017 15:08 EDT) 05/23/2017 15:0 8 EDT Scan 2 Pipeman PROCEDURE/MINOR VELMA GICAL ORDERABLES * (ABNORMAL) ELECTROLYTES (05/23/2017 12:16 EDT) Sodium 126(L) 136 - 145 mEq/L 05/23/2017 12:[address] [facility] Potassium 3.7 3.5 - 5.0 mEq/L 05/23/2017 12:[address] [facility] Chloride 81(L) 96 - 110 mEq/L 05/23/2017 12:[address] [facility] CO2 36(H) 22 - 32 mEq/L 05/23/2017 12:[address] [facility] Blood specimen (specimen) BLOOD SPECIMEN / Unknown 05/23/2017 12:16 EDT 05/23/2017 12:26 EDT Jayne Pozo MD CHEMISTRY & BLOOD GA S ORDERABLES Performing Organization Address [facility] Co de Phone Number [facility] [address] [place] [address] * ECG REPORT - SCANNED (05/23/2017 11:51 EDT) 05/23/2017 11:5 1 EDT Scan 2 Pipeman PROCEDURE/MINOR VELMA GICAL ORDERABLES * ECHOCARDIOGRAM LIMITED (05/23/2017 10:59 EDT) Anatomical Region Laterality Modality Other 05/23/2017 10:5 9 EDT Narrative 05/23/2017 11:19 EDT *Interpreting Group:* *[facility]* [address] [place] [address] Date of study: 05/23/2017 Transthoracic Echocardiography M-mode, [...] ?Akash Reyes MD ATTENDING ?Tony Rosenberg MD REFRIGERATING ENGINEER ??Hali Del Real JUSTINO PERFORMING ?? Uvc, ORDERING ? Jayne Landry REFERRING ?Xena Katiacarrington Rodas *PROCEDURE DATA* Procedure information: ??This study was interpreted by [facility]. Pertinent images and digital data are archived for permanent storage and are available for subsequent review. Study status: ??Routine. Transthoracic echocardiography. ??M-mode, limited 2D, limited spectral Doppler, and color Doppler. A Transthoracic Echocardiogram was performed. Scanning was performed from the parasternal, apical, and subcostal acoustic windows. Images were obtained using an [employer] 10 cardiac ultrasound machine. Image quality was [...] Andrade MD - 05/23/2017 *Interpreting Group:* *[facility]* [address] [place] [address] Date of study: 05/23/2017 Transthoracic Echocardiography M-mode, [...] Akash Reyes MD ATTENDING Tony Rosenberg MD REFRIGERATING ENGINEER Hali Del Real, [facility] PERFORMING [facility], Ip ORDERING Jayne Landry Katelyn Doran *PROCEDURE DATA* Procedure information: This study was interpreted by [facility]. Pertinent images [...] EDT) 05/23/2017 10:4 2 EDT Scan 2 Pipeman PROCEDURE/MINOR VELMA GICAL ORDERABLES * FLUID DIFFERENTIAL (05/23/2017 7:47 EDT) Neutrophils, Fluid 30 % 05/23/2017 11:[address] [facility] Lymphocytes, Fluid 64 % 05/23/2017 11:[address] [facility] [place]/Macro, Fluid 5 % 05/23/2017 11:34 [facility] Eosinophil, Fluid 1 % 05/23/2017 11:34 [facility] PERICARDIAL FLUID AND CAVITY, CS / Unknown 05/23/2017 7:47 EDT 05/23/2017 8:18 EDT Сергей Damico MD GEN LAB UNIT COLLECT ORDERABLES Performing Organization Address City/[facility] Co de Phone Number [facility] [address] [place] [address] * FUNGUS CULTURE/SMEAR, OTHER (05/23/2017 7:47 EDT) Fungal Smear No fungi seen 05/23/2017 14:[address] [facility] Result No fungi isolated 05/30/2017 7:[address] [facility] FOSMIC PERICARDIAL FLUID AND CAVITY, CS / Unknown 05/23/2017 7:47 EDT 05/23/2017 9:17 EDT Comment:Markedly bloody Сергей Damico MD MICROBIOLOGY - GENER AL ORDERABLES Performing Organization Address [facility] Co de Phone Number [facility] [address] [place] [address] * ANAEROBE CULTURE/SMEAR(INC. AEROBES), FLUID (05/23/2017 7:47 EDT) Gram Smear Result Few Polys 05/23/2017 9:[address] [facility] Gram Smear Result No bacteria seen 05/23/2017 9:[address] [facility] Result No growth 05/25/2017 11:[address] [facility] FOSMIC PERICARDIAL FLUID AND CAVITY, CS / Unknown 05/23/2017 7:47 EDT 05/23/2017 9:16 EDT Comment:Markedly bloody Сергей Damico MD MICROBIOLOGY - GENER AL ORDERABLES Performing Organization Address [facility] Co de Phone Number [facility] [address] [place] [address] * HEMATOCRIT, BODY FLUID (05/23/2017 7:47 EDT) Hematocrit,Bod y Fld 6.5 % 05/23/2017 9:[address] [facility] Comment:PERICARDIAL FLUID [facility] PERICARDIAL FLUID AND CAVITY, CS / Unknown 05/23/2017 7:47 EDT 05/23/2017 8:18 EDT Сергей Damico MD GEN LAB UNIT COLLECT ORDERABLES Performing Organization Address City/[facility] Co de Phone Number [facility] [address] [place] [address] * FLUID CELL COUNT (05/23/2017 7:47 EDT) RBC, Fluid 661,000 /cmm 05/23/2017 9:[address] [facility] Nucleated Cells 1,773 /cmm 05/23/2017 9:[address] [facility] Fluid Comment Markedly bloody 05/23/2017 9:[address] [facility] PERICARDIAL FLUID AND CAVITY, CS / Unknown 05/23/2017 7:47 EDT 05/23/2017 8:18 EDT Сергей Damico MD GEN LAB UNIT COLLECT ORDERABLES Performing Organization Address [facility] Co de Phone Number [facility] [address] [place] [address] * TOTAL PROTEIN, FLUID (05/23/2017 7:47 EDT) Protein, Fluid 5.5 g/dl 05/23/2017 9:[address] [facility] Comment: Reference Range: Pleural [...] the blood, serum, or plasma is recommended. [facility] PERICARDIAL FLUID AND CAVITY, CS / Unknown 05/23/2017 7:47 EDT 05/23/2017 8:18 EDT Сергей Damico MD GEN LAB UNIT COLLECT ORDERABLES Performing Organization Address City/[facility] Co de Phone Number [facility] [address] [place] [address] * LDH, FLUID (05/23/2017 7:47 EDT) LDH, Fluid 2,337 U/L 05/23/2017 10:[address] [facility] Comment: Pleural fluid specimen [...] the blood, serum, or plasma is recommended. [facility] PERICARDIAL FLUID AND CAVITY, CS / Unknown 05/23/2017 7:47 EDT 05/23/2017 8:18 EDT Сергей Damico MD GEN LAB UNIT COLLECT ORDERABLES Performing Organization Address [facility] de Phone Number [facility] [address] [place] [address] * GLUCOSE, FLUID (05/23/2017 7:47 EDT) Glucose, Fluid 54 mg/dl 05/23/2017 9:[address] [facility] Comment: Reference Range: Pleural [...] the blood, serum, or plasma is recommended. [facility] PERICARDIAL FLUID AND CAVITY, CS / Unknown 05/23/2017 7:47 EDT 05/23/2017 8:18 EDT Сергей Damico MD GEN LAB UNIT COLLECT ORDERABLES Performing Organization Address City/[facility] Co de Phone Number [facility] [address] [place] [address] * ALBUMIN, FLUID (05/23/2017 7:47 EDT) Albumin, Fluid 2.5 g/dl 05/23/2017 9:[address] [facility] Comment: Reference Range: Pleural [...] the blood, serum, or plasma is recommended. [facility] PERICARDIAL FLUID AND CAVITY, CS / Unknown 05/23/2017 7:47 EDT 05/23/2017 8:18 EDT Сергей Damico MD GEN LAB UNIT COLLECT ORDERABLES Performing Organization Address City/[facility]/ZIP Co de Phone Number [facility] [address] [place] [address] * EKG 12-LEAD (05/23/2017 7:20 EDT) 05/23/2017 7:[address] [facility] - 05/23/2017 11:45 EDT ? [facility] ? Test Date: ?2017-05-23 Pat Name: ? DAVID MERA ?Department: ?? [facility] 5 ? Room: ? MW531 Gender: ? M ?Igniter Assembler: ?? [id number] : ?1950 ? Requested By: PRADIP MONET Order Number: [id number] ? Reading MD: ?? MARCO A FOX MD ? Measurements Intervals ?[place] ? Rate: ? 102 ?P: ? DE: ? 0 ?QRS: ?-20 QRSD: ? 189 ?T: ?178 QT: ? 398 ? QTc: ?519 ? Interpretive Statements ELECTRONIC VENTRICULAR PACEMAKER ABNORMAL RHYTHM ECG I reviewed the tracing and have either agreed or edited the findings in this report. Electronically Signed On 05-23-17 11:45:47 EDT by MARCO A FOX MD. Procedure Note Marco A Fox MD - 05/23/2017 [facility] Test Date: 2017-05-23 Pat Name: DAVID MERA Department: [place] [address] Room: [facility] Gender: M Igniter Assembler: [id number] : 1950 Requested By: PRADIP MONET Order Number: [id number] Martha MD: MARCO A FOX MD Measurements Intervals [place] Rate: 102 P: DE: 0 QRS: -20 QRSD: 189 T: 178 QT: 398 QTc: 519 Interpretive Statements ELECTRONIC VENTRICULAR PACEMAKER ABNORMAL RHYTHM ECG I reviewed the tracing and have either agreed or edited the findings inthis report. Electronically Signed On 05-23-17 11:45:47 EDT by MARCO A NGUYEN. Maria Antonia Zimmerman MD CARDIAC ECG ORDERABL ES [facility] * (ABNORMAL) ELECTROLYTES (05/23/2017 6:42 EDT) Sodium 124(LL) 136 - 145 mEq/L 05/23/2017 7:[address] [facility] Potassium 3.5 3.5 - 5.0 mEq/L 05/23/2017 7:[address] [facility] Chloride 84(L) 96 - 110 mEq/L 05/23/2017 7:[address] [facility] CO2 33(H) 22 - 32 mEq/L 05/23/2017 7:[address] [facility] Blood specimen (specimen) BLOOD SPECIMEN / Unknown 05/23/2017 6:42 EDT 05/23/2017 7:16 EDT Jayne Pozo MD CHEMISTRY & BLOOD GA S ORDERABLES Performing Organization Address [facility] Co de Phone Number [facility] [address] [place] [address] * BUN (05/23/2017 6:42 EDT) BUN 10 10 - 26 mg/dl 05/23/2017 7:[address] [facility] Blood specimen (specimen) BLOOD SPECIMEN / Unknown 05/23/2017 6:42 EDT 05/23/2017 7:16 EDT Jayne Pozo MD CHEMISTRY & BLOOD GA S ORDERABLES Performing Organization Address [facility] de Phone Number [facility] [address] [place] [address] * MAGNESIUM (05/23/2017 6:42 EDT) Magnesium 1.7 1.7 - 2.8 mg/dl 05/23/2017 7:[address] [facility] Blood specimen (specimen) BLOOD SPECIMEN / Unknown 05/23/2017 6:42 EDT 05/23/2017 7:16 EDT Jayne Pozo MD CHEMISTRY & BLOOD GA S ORDERABLES Performing Organization Address [facility] Co de Phone Number [facility] [address] [place] [address] * (ABNORMAL) CREATININE (05/23/2017 6:42 EDT) Creatinine 0.50(L) 0.66 - 1.25 mg/dl 05/23/2017 7:[address] [facility] GFR, Calculated 113 >60 ml/min/1.7 3m2 05/23/2017 7:[address] [facility] Comment: eGFR calculated using CKD-EPI equation for non Americans. Multiply eGFR by 1.16 for Americans. Blood specimen (specimen) BLOOD SPECIMEN / Unknown 05/23/2017 6:42 EDT 05/23/2017 7:16 EDT Jayne Pozo MD CHEMISTRY & BLOOD GA S ORDERABLES [facility] [address] [place] [address] * (ABNORMAL) HEMAGRAM (05/23/2017 6:42 EDT) WBC 8.96 4.0 - 10.4 K/cmm 05/23/2017 7:24 [facility] RBC 3.30(L) 4.36 - 5.78 M/cmm 05/23/2017 7:24 [facility] Hemoglobin 11.0(L) 13.8 - 17.3 gm/dl 05/23/2017 7:24 [facility] HCT 30.8(L) 39.5 - 50.2 % 05/23/2017 7:24 [facility] MCV 93 81 - 95 fl 05/23/2017 7:24 [facility] MCH 33.3(H) 27.6 - 33.0 pg 05/23/2017 7:24 [facility] MCHC 35.7 32.8 - 36.4 gm/dl 05/23/2017 7:24 [facility] RDW-CV 11.3 <14.2 % 05/23/2017 7:24 [facility] RDW-SD 38.5 <46.0 fl 05/23/2017 7:24 [facility] PLT 254 141 - 377 K/cmm 05/23/2017 7:24 [facility] MPV 11.2 9.5 - 12.7 fl 05/23/2017 7:24 [facility] Blood specimen (specimen) BLOOD SPECIMEN / Unknown 05/23/2017 6:42 EDT 05/23/2017 7:16 EDT Jayne Pozo MD HEMATOLOGY & PF4 ORD ERABLES [facility] [address] [place] [address] * CYTOPATHOLOGY (05/23/2017 0:00 EDT) Pathology Report: CYTOPATHOLOGY REPORT Reports generated via electronic interface contain original data; however they are lacking the format of the original report. Caution should be taken when reading/interpret ing unformatted reports. Name: ? DAVID MERA ? Accession #: ? [id number] : ? 1950 (Age: 66) ??M ?Collect [...] cellular enhancement technique. ? End of Report [facility] 05/23/2017 05/23/2017 9:4 0 EDT Сергей Damico MD PATHOLOGY ORDERABLES Performing Organization Address [facility] de Phone Number [facility] [address] [place] [address] * (ABNORMAL) ELECTROLYTES (05/22/2017 23:40 EDT) Sodium 125(L) 136 - 145 mEq/L 05/23/2017 0:[address] [facility] Potassium 3.3(L) 3.5 - 5.0 mEq/L 05/23/2017 0:[address] [facility] Chloride 84(L) 96 - 110 mEq/L 05/23/2017 0:[address] [facility] CO2 33(H) 22 - 32 mEq/L 05/23/2017 0:[address] [facility] Blood specimen (specimen) BLOOD SPECIMEN / Unknown 05/22/2017 23:40 EDT 05/22/2017 23:58 EDT Jayne Pozo MD CHEMISTRY & BLOOD GA S ORDERABLES Performing Organization Address [facility] de Phone Number [facility] [address] [place] [address] * (ABNORMAL) ELECTROLYTES (05/22/2017 18:36 EDT) Sodium 124(LL) 136 - 145 mEq/L 05/22/2017 19:[address] [facility] Comment:Slight hemolysis Potassium 3.9 3.5 - 5.0 mEq/L 05/22/2017 19:[address] [facility] Comment: Slight hemolysis Hemolysis may elevate potassium result. Chloride 81(L) 96 - 110 mEq/L 05/22/2017 19:[address] [facility] Comment:Slight hemolysis CO2 32 22 - 32 mEq/L 05/22/2017 19:[address] [facility] Comment:Slight hemolysis Blood specimen (specimen) BLOOD SPECIMEN / Unknown 05/22/2017 18:36 EDT 05/22/2017 19:04 EDT Jayne Pozo MD CHEMISTRY & BLOOD GA S ORDERABLES [facility] [address] [place] [address] * CHEST PA AND LATERAL (05/22/2017 14:43 [...] 136 - 145 mEq/L 05/22/2017 13:[address] [facility] Comment:Moderate hemolysis Potassium 5.3(H) 3.5 - 5.0 mEq/L 05/22/2017 13:[address] [facility] Comment: Moderate hemolysis Hemolysis may elevate potassium result. Chloride 85(L) 96 - 110 mEq/L 05/22/2017 13:[address] [facility] Comment:Moderate hemolysis CO2 27 22 - 32 mEq/L 05/22/2017 13:[address] [facility] Comment:Moderate hemolysis Blood specimen (specimen) BLOOD SPECIMEN / Unknown 05/22/2017 12:36 EDT 05/22/2017 12:51 EDT Jayne Pozo MD CHEMISTRY & BLOOD GA S ORDERABLES Performing Organization Address City/[facility] Co de Phone Number [facility] [address] [place] [address] * BACTERIAL CULTURE, BLOOD (05/22/2017 9:58 EDT) Result No growth 05/27/2017 6:[address] [facility] Blood specimen (specimen) BLOOD SPECIMEN / Unknown 05/22/2017 9:58 EDT 05/22/2017 10:47 EDT Comment:Left~Hand~AEROBIC BL OOD CULTURE BOTTLE~Volume of blood collected may not be adequate for detection of bacteremia/septicemia.~2ND SET Jayne Pozo MD MICROBIOLOGY - GENER AL ORDERABLES Performing Organization Address [facility] Co de Phone Number [facility] [address] [place] [address] * BACTERIAL CULTURE, BLOOD (05/22/2017 9:58 EDT) Result No growth 05/27/2017 6:[address] [facility] Blood specimen (specimen) BLOOD SPECIMEN / Unknown 05/22/2017 9:58 EDT 05/22/2017 10:47 EDT Comment:Left~Hand~Total volu me of blood collected:~20 ml Jayne Pozo MD MICROBIOLOGY - GENER AL ORDERABLES Performing Organization Address [facility] Co de Phone Number [facility] [address] [place] [address] * EKG 12-LEAD (05/22/2017 8:04 EDT) 05/22/2017 8:[address] [facility] - 05/26/2017 12:50 EDT ? [facility] ? Test Date: ?2017-05-22 Pat Name: ? DAVID MERA ?Department: ?? [facility] 5 ? Room: ? MW531 Gender: ? M ?Igniter Assembler: ?? [id number] : ?1950 ? Requested By: PRADIP MONET Order Number: [id number] ? Reading MD: ?? GAGAN RAMOS MD ? Measurements Intervals ?[place] ? Rate: ? 115 ?P: ?-20 DE: ? 237 ?QRS: ?-24 QRSD: ? 177 [...] Note Gagan Ramos MD - 05/26/2017 [facility] Test Date: 2017-05-22 Pat Name: DAVID MERA Department: [place] [address] Room: [facility] Gender: M Igniter Assembler: [id number] : 1950 Requested By: PRADIP MONET Order Number: [id number] Martha MD: GAGAN RAMOS MD Measurements Intervals [place] Rate: 115 P: -20 DE: 237 QRS: -24 QRSD: 177 T: 172 QT: 357 QTc: 496 Interpretive Statements ELECTRONIC VENTRICULAR PACEMAKER ABNORMAL RHYTHM ECG Compared to ECG 05/21/2017 20:29:55 No significant changes I reviewed the tracing and have either agreed or edited the findings inthis report. Electronically Signed On 05-26-17 12:50:27 EDT by GAGAN LEDESMA. Maria Antonia Zimmerman MD CARDIAC ECG ORDERABL ES [facility] * BUN (05/22/2017 4:09 EDT) BUN 11 10 - 26 mg/dl 05/22/2017 4:[address] [facility] Blood specimen (specimen) BLOOD SPECIMEN / Unknown 05/22/2017 4:09 EDT 05/22/2017 4:18 EDT Jayne Pozo MD CHEMISTRY & BLOOD GA S ORDERABLES Performing Organization Address City/[facility]/ZIP Co de Phone Number [facility] [address] [place] [address] * MAGNESIUM (05/22/2017 4:09 EDT) Magnesium 2.1 1.7 - 2.8 mg/dl 05/22/2017 4:[address] [facility] Blood specimen (specimen) BLOOD SPECIMEN / Unknown 05/22/2017 4:09 EDT 05/22/2017 4:18 EDT Jayne Pozo MD CHEMISTRY & BLOOD GA S ORDERABLES Performing Organization Address [facility] Co de Phone Number [facility] [address] [place] [address] * (ABNORMAL) CREATININE (05/22/2017 4:09 EDT) Creatinine 0.56(L) 0.66 - 1.25 mg/dl 05/22/2017 4:[address] [facility] GFR, Calculated 108 >60 ml/min/1.7 3m2 05/22/2017 4:[address] [facility] Comment: eGFR calculated using CKD-EPI equation for non Americans. Multiply eGFR by 1.16 for Americans. Blood specimen (specimen) BLOOD SPECIMEN / Unknown 05/22/2017 4:09 EDT 05/22/2017 4:18 EDT Jayne Pozo MD CHEMISTRY & BLOOD GA S ORDERABLES Performing Organization Address [facility]/ZIP Co de Phone Number [facility] [address] [place] [address] * (ABNORMAL) HEMAGRAM (05/22/2017 4:09 EDT) WBC 10.75(H) 4.0 - 10.4 K/cmm 05/22/2017 4:[address] [facility] RBC 3.70(L) 4.36 - 5.78 M/cmm 05/22/2017 4:[address] [facility] Hemoglobin 12.2(L) 13.8 - 17.3 gm/dl 05/22/2017 4:[address] [facility] HCT 34.1(L) 39.5 - 50.2 % 05/22/2017 4:37 [facility] MCV 92 81 - 95 fl 05/22/2017 4:37 [facility] MCH 33.0 27.6 - 33.0 pg 05/22/2017 4:37 [facility] MCHC 35.8 32.8 - 36.4 gm/dl 05/22/2017 4:37 [facility] RDW-CV 10.9 <14.2 % 05/22/2017 4:37 [facility] RDW-SD 37.2 <46.0 fl 05/22/2017 4:37 [facility] PLT 294 141 - 377 K/cmm 05/22/2017 4:37 [facility] MPV 10.7 9.5 - 12.7 fl 05/22/2017 4:37 [facility] Blood specimen (specimen) BLOOD SPECIMEN / Unknown 05/22/2017 4:09 EDT 05/22/2017 4:18 EDT Jayne Pozo MD HEMATOLOGY & PF4 ORD ERABLES [facility] [address] [place] [address] * (ABNORMAL) ELECTROLYTES (05/22/2017 4:09 EDT) Sodium 122(LL) 136 - 145 mEq/L 05/22/2017 4:[address] [facility] Potassium 4.0 3.5 - 5.0 mEq/L 05/22/2017 4:[address] [facility] Chloride 84(L) 96 - 110 mEq/L 05/22/2017 4:[address] [facility] CO2 29 22 - 32 mEq/L 05/22/2017 4:[address] [facility] Blood specimen (specimen) BLOOD SPECIMEN / Unknown 05/22/2017 4:09 EDT 05/22/2017 4:18 EDT Maria Antonia Zimmerman MD CHEMISTRY & BLOOD GA S ORDERABLES Performing Organization Address [facility] de Phone Number [facility] [address] [place] [address] * (ABNORMAL) ELECTROLYTES (05/22/2017 0:23 EDT) Sodium 120(LL) 136 - 145 mEq/L 05/22/2017 1:[address] [facility] Potassium 3.4(L) 3.5 - 5.0 mEq/L 05/22/2017 1:[address] [facility] Chloride 83(L) 96 - 110 mEq/L 05/22/2017 1:[address] [facility] CO2 31 22 - 32 mEq/L 05/22/2017 1:[address] [facility] Blood specimen (specimen) BLOOD SPECIMEN / Unknown 05/22/2017 0:23 EDT 05/22/2017 0:27 EDT Maria Antonia Zimmerman MD CHEMISTRY & BLOOD GA S ORDERABLES Performing Organization Address [facility] Co de Phone Number [facility] [address] [place] [address] * EKG 12-LEAD (05/21/2017 20:29 EDT) 05/21/2017 20:[address] [facility] - 05/30/2017 11:55 EDT ? [facility] ? Test Date: ?2017-05-21 Pat Name: ? DAVID MERA ?Department: ?? [place] 5 ? Room: ? MW531 Gender: ? M ?Igniter Assembler: ?? [id number] : ?1950 ? Requested By: ROBLES Cabral Order Number: [id number] ? Reading MD: ?? ASHLEY CONSUELO MD ? Measurements Intervals ?[place] ? Rate: ? 109 ?P: ? DE: ? 0 ?QRS: ?-41 QRSD: ? 179 [...] Ashley Edwards Jr., MD - 05/30/2017 [facility] Test Date: 2017-05-21 Pat Name: DAVID MERA Department: [place] [address] Room: [facility] Gender: M Igniter Assembler: [id number] : 1950 Requested By: ROBLES Cabral Order Number: [id number] Reading MD: ASHLEY EDWARDS MD Measurements Intervals [place] Rate: 109 P: DE: 0 QRS: -41 QRSD: 179 T: 175 QT: 391 QTc: 528 Interpretive Statements ELECTRONIC VENTRICULAR PACEMAKER ABNORMAL RHYTHM ECG Compared to ECG 05/21/2017 07:12:25 No significant changes I reviewed the tracing and have either agreed or edited the findings inthis report. Electronically Signed On 05-30-17 11:55:09 EDT by ASHLEY RAI. Seng Rand MD PhD CARDIA C ECG ORDERABLES [facility] * PORTABLE CHEST 1 VIEW [...] 136 - 145 mEq/L 05/21/2017 20:[address] [facility] Potassium 3.7 3.5 - 5.0 mEq/L 05/21/2017 20:[address] [facility] Chloride 79(L) 96 - 110 mEq/L 05/21/2017 20:[address] [facility] CO2 32 22 - 32 mEq/L 05/21/2017 20:[address] [facility] Blood specimen (specimen) BLOOD SPECIMEN / Unknown 05/21/2017 20:08 EDT 05/21/2017 20:28 EDT Maria Antonia Zimmerman MD CHEMISTRY & BLOOD GA S ORDERABLES [facility] [address] [place] [address] * PERMANENT PACEMAKER PROCEDURE (05/21/2017 19:42 EDT) Anatomical Region Laterality Modality Other 05/21/2017 19:4 2 EDT Narrative 05/21/2017 20:01 EDT *Cardiology* [address] [place] [address] Lead Revision Patient: David Mera ? Study Date: ?05/21/2017 ? Accession #: ? [id number] : ? 1950 Referring: Katia Mccallum Attending: [...] A 7 Serbian safety sheath was advanced over the wire [...] topical skin adhesive. IMPLANTED HARDWARE: Implanted device: [employer] [facility] - Serial number: [id number]. Implanted originally on 05-02-2017. LEAD PARAMETERS + + + + + Lead # ? 1 ? 1 ? 2 ? + + + + + Chamber ? RA ? RA ? RV ? + + + + + Date implanted ?? 05/02/2017 ? 05/21/2017 ? 05/02/2017 ? + + + + + Model ? [employer] Medtronic Select [place] [employer] 8205 ?? information ? 7785 ? Secure-59 [id number] ? + + + + + Serial number ?? [id number] ? [id number] ? [id number] ? + + + + + Location [...] Seng Rand MD - 05/21/2017 *Cardiology* [address] [place] [address] Lead Revision Patient: David Mera Study Date: [...] A 7 Serbian safety sheath was advanced over the wire [...] topical skin adhesive. IMPLANTED HARDWARE: Implanted device: [employer] - Serial number: [id number]. Implanted originally on 05-02-2017. LEAD PARAMETERS + + + + + Lead # 1 1 2 + + + + + Chamber RA RA RV + + + + + Date implanted 05/02/2017 05/21/2017 05/02/2017 + + + + + Model [employer] Medtronic Select [place] [employer] 7742 information 7740 Secure-59 [id number] + + + + + Serial number [id number] + + + + + Location RA [...] be added FREE T4,TSH 05/21/2017 18:[address] [facility] Number for problems [id number] 05/21/2017 18:[address] [facility] Accession number [id number] 05/21/2017 18:[address] [facility] TOPOGRAPHY UNKNOWN / Unknown 05/21/2017 18:20 EDT 05/21/2017 18:22 EDT Jayesh Garcia MD HEMATOLOGY & PF4 O RDERABLES [facility] [address] [place] [address] * CREATININE, URINE RANDOM (05/21/2017 18:20 EDT) Creatinine, Urn [place] 26.2 mg/dl 05/21/2017 21:[address] [facility] Urine specimen (specimen) URINE / Unknown 05/21/2017 18:20 EDT 05/21/2017 21:06 EDT Jayesh Garcia MD URINALYSIS ORDERAB LES Performing Organization Address [facility] Co de Phone Number [facility] [address] [place] [address] * PROTEIN, TOTAL, RANDOM, URINE (05/21/2017 18:20 EDT) Tot Prot,Ur Random 21 mg/dl 05/21/2017 21:[address] [facility] Urine specimen (specimen) URINE / Unknown 05/21/2017 18:20 EDT 05/21/2017 21:06 EDT Jayesh Garcia MD URINALYSIS ORDERAB LES Performing Organization Address [facility] de Phone Number [facility] [address] [place] [address] * ECHOCARDIOGRAM LIMITED (05/21/2017 18:19 EDT) Anatomical Region Laterality Modality Other 05/21/2017 18:1 9 EDT Narrative 05/22/2017 8:34 EDT *Interpreting Group:* *[facility]* [address] [place] [address] Date of study: 05/21/2017 Transthoracic Echocardiography M-mode, [...] stop time: ??07:33 PM. PERFORMING ?? [facility], REFRIGERATING ENGINEER ??Emilia Corey RDCS *PROCEDURE DATA* Procedure information: ??This study was interpreted by [facility]. Pertinent images and digital data are archived for permanent storage and are available for subsequent review. Study status: ??STAT. Transthoracic echocardiography. ??M-mode, limited 2D, limited spectral Doppler, and color Doppler. A Transthoracic Echocardiogram was performed. Scanning was performed from the parasternal, apical, and subcostal acoustic windows. Images were obtained using an [employer] 13 cardiac ultrasound machine. Image quality was [...] Rubio MD - 05/22/2017 *Interpreting Group:* *[facility]* [address] [place] [id number] Date of study: 05/21/2017 Transthoracic Echocardiography M-mode, [...] Test stop time: 07:33 PM. PERFORMING [facility], REFRIGERATING ENGINEER Emilia Corey RDCS *PROCEDURE DATA* Procedure information: This study was interpreted by [facility]. Pertinent images [...] 0.47 - 4.68 uIU/ml 05/21/2017 19:[address] [facility] BLOOD SPECIMEN / Unknown 05/21/2017 14:02 EDT 05/21/2017 14:12 EDT Maria Antonia Zimmerman MD CHEMISTRY & BLOOD GA S ORDERABLES [facility] [address] [place] [address] * T4 FREE (05/21/2017 14:02 EDT) T4, Free 1.5 0.8 - 2.2 ng/dl 05/21/2017 19:[address] [facility] BLOOD SPECIMEN / Unknown 05/21/2017 14:02 EDT 05/21/2017 14:12 EDT Maria Antonia Zimmerman MD CHEMISTRY & BLOOD GA S ORDERABLES Performing Organization Address City/[facility] Co de Phone Number [facility] [address] [place] [address] * (ABNORMAL) ELECTROLYTES (05/21/2017 14:02 EDT) Sodium 116(LL) 136 - 145 mEq/L 05/21/2017 14:[address] [facility] Potassium 4.1 3.5 - 5.0 mEq/L 05/21/2017 14:[address] [facility] Chloride 78(L) 96 - 110 mEq/L 05/21/2017 14:[address] [facility] CO2 28 22 - 32 mEq/L 05/21/2017 14:[address] [facility] Blood specimen (specimen) BLOOD SPECIMEN / Unknown 05/21/2017 14:02 EDT 05/21/2017 14:12 EDT Maria Antonia Zimmerman MD CHEMISTRY & BLOOD GA S ORDERABLES Performing Organization Address City/[facility]/ZIP Co de Phone Number [facility] [address] [place] [address] * ECHOCARDIOGRAM (05/21/2017 10:30 EDT) Anatomical Region Laterality Modality Other 05/21/2017 10:3 0 EDT Narrative 05/21/2017 10:48 EDT *Interpreting Group:* *[facility]* [address] [place] [address] Date of study: 05/21/2017 Transthoracic Echocardiography M-mode, [...] [facility], Ip ORDERING ? Maria Antonia Zimmerman REFRIGERATING ENGINEER ??Jose G Bauer REFERRING ?Katia Mccallum *PROCEDURE DATA* Procedure information: ??The patient was identified by two identifiers. This study was interpreted by [facility]. Pertinent images [...] Andrade MD - 05/21/2017 *Interpreting Group:* *[facility]* [address] [place] [address] Date of study: 05/21/2017 Transthoracic Echocardiography M-mode, [...] PERFORMING [facility], Ip ORDERING Maria Antonia Zimmerman REFRIGERATING ENGINEER Jose G Bauer Katelyn Doran *PROCEDURE DATA* Procedure information: The patient was identified by two identifiers. This study was interpreted by [facility]. Pertinent images [...] 117(LL) 136 - 145 mEq/L 05/21/2017 11:15 [facility] Potassium 3.7 3.5 - 5.0 mEq/L 05/21/2017 11:15 [facility] Chloride 77(L) 96 - 110 mEq/L 05/21/2017 11:15 [facility] CO2 30 22 - 32 mEq/L 05/21/2017 11:15 [facility] Blood specimen (specimen) BLOOD SPECIMEN / Unknown 05/21/2017 9:55 EDT 05/21/2017 10:59 EDT Maria Antonia Zimmerman MD CHEMISTRY & BLOOD GA S ORDERABLES [facility] [address] [place] [address] * EKG 12-LEAD (05/21/2017 7:12 EDT) 05/21/2017 7:[address] [facility] EKG - 05/23/2017 15:04 EDT ? [facility] ? Test Date: ?2017-05-21 Pat Name: ? DAVID MERA ?Department: ?? [facility] 5 ? Room: ? MW531 Gender: ? M ?Igniter Assembler: ?? [id number] : ?1950 ? Requested By: PRADIP MONET Order Number: [id number] ? Martha OAKES: ?? SENG PERSON SA, MD ? Measurements Intervals ?[place] ? Rate: ? 75 ? P: ?31 DE: ? 173 ?QRS: ?-73 QRSD: ? 183 [...] Seng Brody Sa, MD - 05/23/2017 [facility] Test Date: 2017-05-21 Pat Name: DAVID MERA Department: [place] [address] Room: [facility] Gender: M Igniter Assembler: [id number] : 1950 Requested By: PRADIP MONET Order Number: [id number] Martha MD: SENG ROBLEDO Measurements Intervals [place] Rate: 75 P: 31 DE: 173 QRS: -73 QRSD: 183 T: 174 [...] Antonia Zimmerman MD CARDIAC ECG ORDERABL ES [facility] E[facility] * INPATIENT ADD-ON (05/21/2017 6:55 EDT) Tests to be added MAGNESIUM 05/21/2017 6:[address] [facility] Number for problems [id number] 05/21/2017 7:[address] [facility] Accession number [id number] 05/21/2017 7:[address] [facility] TOPOGRAPHY UNKNOWN / Unknown 05/21/2017 6:55 EDT 05/21/2017 7:10 EDT Maria Antonia Zimmerman MD HEMATOLOGY & PF4 ORD ERABLES Performing Organization Address City/[facility] Co de Phone Number [facility] [address] [place] [address] * INPATIENT ADD-ON (05/21/2017 6:40 EDT) Tests to be added ALT,ALK PHOS,AST,T OTAL BILI,ALBUM IN 05/21/2017 6:[address] [facility] Number for problems [id number] 05/21/2017 6:[address] [facility] Accession number [id number] 05/21/2017 6:[address] [facility] TOPOGRAPHY UNKNOWN / Unknown 05/21/2017 6:40 EDT 05/21/2017 6:49 EDT Maria Antonia Zimmerman MD HEMATOLOGY & PF4 ORD ERABLES [facility] [address] [place] [address] * MAGNESIUM (05/21/2017 5:57 EDT) Magnesium 1.8 1.7 - 2.8 mg/dl 05/21/2017 7:[address] [facility] BLOOD SPECIMEN / Unknown 05/21/2017 5:57 EDT 05/21/2017 6:09 EDT Maria Antonia Zimmerman MD CHEMISTRY & BLOOD GA S ORDERABLES Performing Organization Address City/[facility]/ZIP Co de Phone Number [facility] [address] [place] [address] * BILIRUBIN, TOTAL (05/21/2017 5:57 EDT) Bilirubin, Total 0.6 <1.4 mg/dl 05/21/2017 7:[address] [facility] BLOOD SPECIMEN / Unknown 05/21/2017 5:57 EDT 05/21/2017 6:09 EDT Maria Antonia Zimmerman MD CHEMISTRY & BLOOD GA S ORDERABLES Performing Organization Address [facility]/ZIP Co de Phone Number [facility] [address] [place] [address] * AST (05/21/2017 5:57 EDT) Pathologist [facility] AST 33 15 - 46 U/L 05/21/2017 7:[address] [facility] BLOOD SPECIMEN / Unknown 05/21/2017 5:57 EDT 05/21/2017 6:09 EDT Maria Antonia Zimmerman MD CHEMISTRY & BLOOD GA S ORDERABLES Performing Organization Address [facility] Co de Phone Number [facility] [address] [place] [address] * ALT (05/21/2017 5:57 EDT) ALT 39 21 - 72 U/L 05/21/2017 7:[address] [facility] BLOOD SPECIMEN / Unknown 05/21/2017 5:57 EDT 05/21/2017 6:09 EDT Maria Antonia Zimmerman MD CHEMISTRY & BLOOD GA S ORDERABLES Performing Organization Address City/[facility]/ZIP Co de Phone Number [facility] [address] [place] [address] * ALKALINE PHOSPHATASE (05/21/2017 5:57 EDT) Total Alkaline Phosphatase 81 38 - 126 U/L 05/21/2017 7:[address] [facility] BLOOD SPECIMEN / Unknown 05/21/2017 5:57 EDT 05/21/2017 6:09 EDT Maria Antonia Zimmerman MD CHEMISTRY & BLOOD GA S ORDERABLES Performing Organization Address [facility] Co de Phone Number [facility] [address] [place] [address] * (ABNORMAL) ALBUMIN (05/21/2017 5:57 EDT) Albumin 3.0(L) 3.4 - 4.9 g/dl 05/21/2017 7:[address] [facility] BLOOD SPECIMEN / Unknown 05/21/2017 5:57 EDT 05/21/2017 6:09 EDT Maria Antonia Zimmerman MD CHEMISTRY & BLOOD GA S ORDERABLES Performing Organization Address [facility] Co de Phone Number [facility] [address] [place] [address] * (ABNORMAL) ELECTROLYTES (05/21/2017 5:57 EDT) Sodium 117(LL) 136 - 145 mEq/L 05/21/2017 6:[address] [facility] Potassium 3.5 3.5 - 5.0 mEq/L 05/21/2017 6:[address] [facility] Chloride 76(L) 96 - 110 mEq/L 05/21/2017 6:[address] [facility] CO2 31 22 - 32 mEq/L 05/21/2017 6:[address] [facility] Blood specimen (specimen) BLOOD SPECIMEN / Unknown 05/21/2017 5:57 EDT 05/21/2017 6:12 EDT Maria Antonia Zimmerman MD CHEMISTRY & BLOOD GA S ORDERABLES Performing Organization Address [facility]/ZIP Co de Phone Number [facility] [address] [place] [address] * (ABNORMAL) PROTIME (05/21/2017 5:57 EDT) Pro Time 16.3(H) 10.3 - 13.4 secs 05/21/2017 6:[address] [facility] Comment:NOTE NEW REFERENCE R ANTONIETA OF APR 03 2017 I.N.R. 1.4(H) 0.9 - 1.1 Ratio 05/21/2017 6:[address] [facility] Comment: Moderate Intensity Coumadin INR = 2.0-3.0 Adjustments in anticoagulant therapy dose should be based upon the INR and NOT the Pro Time. Blood specimen (specimen) BLOOD SPECIMEN / Unknown 05/21/2017 5:57 EDT 05/21/2017 6:09 EDT Maria Antonia Zimmerman MD HEMATOLOGY & PF4 ORD ERABLES Performing Organization Address [facility] Co de Phone Number [facility] [address] [place] [address] * HIV 1/2 ANTIGEN AND ANTIBODY, 4TH GENERATION (05/21/2017 5:57 EDT) [facility] HIV 1/2 Antibody Negative Negative 05/22/19 18 11:[address] [facility] Comment: Fourth generation assay performed on the Mag[employer]. If acute HIV-1 infection is suspected in a high risk patient, submit plasma specimen for HIV-1 RNA quantification test. Blood specimen (specimen) BLOOD SPECIMEN / Unknown 05/21/2017 5:57 EDT 05/21/2017 6:09 EDT Maria Antonia Zimmerman MD IMMUNOLOGY AND SEROL OGY ORDERABLES Performing Organization Address City/[facility] Co de Phone Number [facility] [address] [place] [address] * (ABNORMAL) BUN (05/21/2017 5:57 EDT) BUN 5(L) 10 - 26 mg/dl 05/21/2017 6:[address] [facility] Blood specimen (specimen) BLOOD SPECIMEN / Unknown 05/21/2017 5:57 EDT 05/21/2017 6:09 EDT Maria Antonia Zimmerman MD CHEMISTRY & BLOOD GA S ORDERABLES Performing Organization Address City/[facility] Co de Phone Number [facility] [address] [place] [address] * (ABNORMAL) CREATININE (05/21/2017 5:57 EDT) Creatinine 0.43(L) 0.66 - 1.25 mg/dl 05/21/2017 6:[address] [facility] GFR, Calculated 120 >60 ml/min/1.7 3m2 05/21/2017 6:[address] [facility] Comment: eGFR calculated using CKD-EPI equation for non Americans. Multiply eGFR by 1.16 for Americans. Blood specimen (specimen) BLOOD SPECIMEN / Unknown 05/21/2017 5:57 EDT 05/21/2017 6:09 EDT Maria Antonia Zimmerman MD CHEMISTRY & BLOOD GA S ORDERABLES Performing Organization Address City/[facility] Co de Phone Number [facility] [address] [place] [address] * (ABNORMAL) HEMAGRAM AND DIFFERENTIAL (05/21/2017 5:57 EDT) WBC 6.90 4.0 - 10.4 K/cmm 05/21/2017 6:[address] [facility] RBC 3.25(L) 4.36 - 5.78 M/cmm 05/21/2017 6:[address] [facility] Hemoglobin 10.9(L) 13.8 - 17.3 gm/dl 05/21/2017 6:[address] [facility] HCT 29.7(L) 39.5 - 50.2 % 05/21/2017 6:30 [facility] MCV 91 81 - 95 fl 05/21/2017 6:30 [facility] MCH 33.5(H) 27.6 - 33.0 pg 05/21/2017 6:30 [facility] MCHC 36.7(H) 32.8 - 36.4 gm/dl 05/21/2017 6:30 [facility] RDW-CV 10.6 <14.2 % 05/21/2017 6:30 [facility] RDW-SD 36.1 <46.0 fl 05/21/2017 6:30 [facility] PLT 266 141 - 377 K/cmm 05/21/2017 6:30 [facility] MPV 10.7 9.5 - 12.7 fl 05/21/2017 6:30 [facility] % Neutrophils 61.6 % 05/21/2017 6:30 [facility] % Lymphocytes 19.0 % 05/21/2017 6:30 [facility] % Monocytes 16.7 % 05/21/2017 6:30 [facility] % Eosinophils 1.6 % 05/21/2017 6:30 [facility] % Basophils 0.7 % 05/21/2017 6:30 [facility] % Immature Grans 0.4 % 05/21/2017 6:30 [facility] ABS Neutrophils 4.25 2.20 - 8.85 K/cmm 05/21/2017 6:30 [facility] ABS Lymphs 1.31 1.09 - 3.30 K/cmm 05/21/2017 6:30 [facility] ABS Monocytes 1.15(H) 0.1 - 0.8 K/cmm 05/21/2017 6:30 [facility] ABS Eosinophils 0.11 0.03 - 0.61 K/cmm 05/21/2017 6:30 [facility] ABS Basophils 0.05 0.01 - 0.11 K/cmm 05/21/2017 6:[address] [facility] ABS Immature Grans 0.03 0 - 0.06 K/cmm 05/21/2017 6:[address] [facility] Type of Diff: Automated 05/21/2017 6:[address] [facility] Blood specimen (specimen) BLOOD SPECIMEN / Unknown 05/21/2017 5:57 EDT 05/21/2017 6:09 EDT Maria Antonia Zimmerman MD PACKAGES & DNA PROBE ORDERABLES Performing Organization Address [facility] de Phone Number [facility] [address] [place] [address] * (ABNORMAL) ELECTROLYTES (05/21/2017 3:28 EDT) Sodium 116(LL) 136 - 145 mEq/L 05/21/2017 4:[address] [facility] Potassium 3.3(L) 3.5 - 5.0 mEq/L 05/21/2017 4:[address] [facility] Chloride 77(L) 96 - 110 mEq/L 05/21/2017 4:[address] [facility] CO2 31 22 - 32 mEq/L 05/21/2017 4:[address] [facility] Blood specimen (specimen) BLOOD SPECIMEN / Unknown 05/21/2017 3:28 EDT 05/21/2017 3:35 EDT Maria Antonia Zimmerman MD CHEMISTRY & BLOOD GA S ORDERABLES Performing Organization Address [facility] de Phone Number [facility] [address] [place] [address] * EKG 12-LEAD (05/21/2017 1:25 EDT) 05/21/2017 1:[address] [facility] - 05/23/2017 10:35 EDT ? [facility] ? Test Date: ?2017-05-21 Pat Name: ? DAVID MERA ?Department: ?? [place] 5 ? Room: ? MW531 Gender: ? M ?Igniter Assembler: ?? [id number] : ?1950 ? Requested By: PRADIP MONET Order Number: [id number] ? Reading MD: ?? PIERRE RUBIO MD ? Measurements Intervals ?[place] ? Rate: ? 75 ? P: ?13 DE: ? 160 ?QRS: ?-81 QRSD: ? 185 [...] Note Pierre Rubio MD - 05/23/2017 [facility] Test Date: 2017-05-21 Pat Name: DAVID MERA Department: [place] [address] Room: [facility] Gender: M Igniter Assembler: [id number] : 1950 Requested By: PRADIP MONET Order Number: [id number] Martha MD: PIERRE RUBIO MD Measurements Intervals [place] Rate: 75 P: 13 DE: 160 QRS: -81 QRSD: 185 T: 171 QT: 495 QTc: 556 Interpretive Statements SINUS RHYTHM WITH ATRIAL TRACKING and VENTRICULAR PACING Compared to ECG 05/03/2017 04:23:33 No significant changes I reviewed the tracing and have either agreed or edited the findings inthis report. Electronically Signed On 05-23-17 10:35:38 EDT by PIERRE YEBOAH. Maria Antonia Zimmerman MD CARDIAC ECG ORDERABL ES [facility] * INPATIENT ADD-ON (05/21/2017 0:00 EDT) Tests to be added URINE OSM 05/20/2017 23:[address] [facility] Number for problems Not Given 05/21/2017 0:[address] [facility] Accession number [id number] 05/21/2017 0:[address] [facility] TOPOGRAPHY UNKNOWN / Unknown 05/21/2017 05/21/2017 0:02 EDT Maria Antonia Zimmerman MD HEMATOLOGY & PF4 ORD ERABLES Performing Organization Address City/[facility]/ZIP Co de Phone Number [facility] [address] [place] [address] * OSMOLALITY, URINE (05/20/2017 23:45 EDT) Osmolality, Ur 251 150 - 1,150 mos/kg 05/21/2017 0:[address] [facility] URINE / Unknown 05/20/2017 2 3:45 EDT 05/20/2017 23:55 EDT Laly Kim MD URINALYSIS ORDERRyan PFEIFFER Performing Organization Address [facility] Co de Phone Number [facility] [address] [place] [address] * SODIUM, URINE RANDOM (05/20/2017 23:45 EDT) Sodium, Ur 18.0 mEq/L 05/21/2017 0:[address] [facility] Urine specimen (specimen) URINE / Unknown 05/20/2017 23:45 EDT 05/20/2017 23:55 EDT Laly Kim MD URINALYSIS ORDERRyan PFEIFFER Performing Organization Address [facility] Co de Phone Number [facility] [address] [place] [address] * CREATININE, URINE RANDOM (05/20/2017 23:45 EDT) Creatinine, Urn [place] 43.1 mg/dl 05/21/2017 0:[address] [facility] Urine specimen (specimen) URINE / Unknown 05/20/2017 23:45 EDT 05/20/2017 23:55 EDT Laly Kim MD URINALYSIS ORDERRyan PFEIFFER Performing Organization Address [facility]/ZIP Co de Phone Number [facility] [address] [place] [address] * POCT US CARDIAC (05/20/2017 22:45 EDT) Anatomical Region Laterality Modality Other 05/20/2017 22:4 5 EDT 05/20/2017 23:51 EDT Narrative 05/20/2017 23:51 EDT [facility] - Ultrasound Exam Date: 05/20/2017 Exam Type: POCT US CARDIAC Regional Transportation Manager: Laly Kim MD Attending: Laly Kim MD [...] performed and interpreted by the [facility] ED Staff Procedure Note Laly Kim MD - 05/20/2017 [facility] - Ultrasound Exam Date: 05/20/2017 Exam Type: POCT US CARDIAC Regional Transportation Manager: Laly Kim MD Attending: Laly Kim MD [...] performed and interpreted by the [facility] ED Staff Laly Kim MD IMG POCT US ORDER [place] * (ABNORMAL) BASIC METABOLIC PANEL (BMP) (05/20/2017 22:40 EDT) Sodium 116(LL) 136 - 145 mEq/L 05/20/2017 23:14 [facility] Potassium 3.6 3.5 - 5.0 mEq/L 05/20/2017 23:14 [facility] Chloride 74(L) 96 - 110 mEq/L 05/20/2017 23:14 [facility] CO2 32 22 - 32 mEq/L 05/20/2017 23:14 [facility] BUN 6(L) 10 - 26 mg/dl 05/20/2017 23:14 [facility] Creatinine 0.44(L) 0.66 - 1.25 mg/dl 05/20/2017 23:14 [facility] GFR, Calculated 119 >60 ml/min/1.7 3m2 05/20/2017 23:14 [facility] Comment: eGFR calculated using CKD-EPI equation for non Americans. Multiply eGFR by 1.16 for Americans. Calcium 8.7 8.5 - 10.5 mg/dl 05/20/2017 23:14 [facility] Calculated Calcium 9.2 8.5 - 10.5 mg/dl 05/20/2017 23:14 [facility] Glucose, Serum 108(H) 70 - 100 mg/dl 05/20/2017 23:14 [facility] Fasting? Unknown 05/20/2017 23:14 [facility] Blood specimen (specimen) BLOOD SPECIMEN / Unknown 05/20/2017 22:40 EDT 05/20/2017 22:58 EDT Laly Kim MD CHEMISTRY & BLOOD GAS ORDERABLES [facility] [address] [place] [address] documented in this encounter Visit Diagnoses Diagnosis [...] 05/02 documented in this encounter Care Teams Dish Stacker Relationship Specialty Start Date End Date Katia Stone, PABijalC [address] [place] [phone] PCP - General 05/02/17 documented as of this encounter
--- OUTSIDE RECORDS SUMMARY | 2023-12-23 09:37 | XMS_ITS | Encounter Summary ---
Author Organization [facility] Address [facility] [place] [address] Care Team Providers Care Corporate Traffic Manager Name Role Phone Katia Stone Primary Care Provider Encounter Details Date Type Department Care Team (Late st Contact Info) Description 12/15/2023 10:20 PM EDT Ancillary Procedure Radiology Library at [facility] [place] [address] Jack Gutierrez MD [address] [place] [address] [address] [place] [id number] Social History Tobacco Use Types Packs/Day Years Used Date Smoking Tobacco: Never Smokeless Tobacco: Never Alcohol Use Standard Drinks/Week Comments Yes 14 (1 standard drink = 0.6 oz pu re alcohol) [facility] Inpatient Questions Answer Date Recorded [...] AM EST Hospital Encounter Non-Invasive Cardiology Lab [facility] [place] [address] Arrived documented as of this encounter Procedures [...] FILM LIBRARY O RDERABLES Performing Organization Address City/State/[facility] Co de Phone Number [place], [place] documented in this encounter Visit Diagnoses Not on filedocumented in this encounter Care Teams Corporate Traffic Manager Relationship Specialty Start Date End Date Katia Stone PA [address] [facility] [place] [facility] [place] [phone] PCP - General General Internal Medicine 11/10/18 documented as of this encounter
--- OUTSIDE RECORDS SUMMARY | 2023-12-23 09:37 | XMS_ITS | Clinical Summary ---
Author Organization [facility] Address [facility] [place] [address] Care Team Providers Care Electrical Technician Instructor Name Role Phone Katia Stone Primary Care [...] Date Diagnosed Date Pacemaker - dual lead [employer] pacemake r 09/24/2022 Overview (09/24/2022): Mobile Designer Model # Serial # Generator (New) [employer] [id number] Atrial Lead (New) [employer] [id number] RV Lead [employer] [id number] 09/23/2022 - RA lead fx and RV lead with insulation breach - both capped and abandoned with new atrial and ventricular leads Placed as well as PG replacement for DIONICIO Complete heart block 09/23/2022 Encounters Date Type Department Care Team Description 12/16/2023 1:30 PM EDT Telehealth [place] [address] Telehealth, Neurology 12/15/2023 10:20 PM EDT Ancillary Procedure Radiology Library at [facility] [place] [address] Jack Gutierrez MD 12/15/2023 10:15 PM EDT Ancillary Procedure Radiology Library [place] [facility] [place] [address] Jack Gutierrez MD 11/06/2023 10:00 AM EDT - 11/06/2023 11:59 PM EDT Hospital Encounter [place] [address] Discharge Disposition: Home from Last 3 Months Social History Tobacco Use Types Packs/Day Years Used Date Smoking Tobacco: Never Smokeless Tobacco: Never Tobacco Cessation:Counseling Given: Not Answered Alcohol Use Standard Drinks/Week Comments Yes 14 (1 standard drink = 0.6 oz pu re alcohol) [facility] Inpatient Questions Answer Date Recorded Does [...] AM EST Hospital Encounter Non-[place] [address] Arrived Health Maintenance Due Date Last Done [...] series) 11/02/2023 Medical Devices Implanted Type Area Mobile Designer Device Identifier Shelf Expiration Date Model / Serial / Lot Bsx: [id number]: [id number] Implanted: by Dylan Story MD (Quantity not on file) Lead Heart [employer] 7841 / [id number] / Bsx: 7842: [id number] Implanted: by Dylan Story MD (Quantity not on file) Lead Heart [employer] 7842 / [id number] / Bsx: L311: [id number]/2 [id number] Implanted: by Dylan Story MD (Quantity not on file) Pacemaker Chest Wall [employer] [id number] / [id number] / Procedures Procedure Name Priority Date/Time Associated Diagnosis Comments FILM LIBRARY STORAGE ONLY CT HEAD AND SPINE Routine 12/15/2023 10:14 PM EDT FILM LIBRARY STORAGE ONLY CT HEAD Routine 12/15/2023 10:11 PM EDT from Last 3 Months Results * Film Library- Storage Only CT Head And Spine (12/15/2023 10:14 PM EDT) Narrative [facility] - 12/15/2023 10:14 PM EDT This exam is auto-finalizing. It's purpose is for storage only. Jack Gutierrez MD [facility] FILM LIBRARY O RDERABLES Performing Organization Address [facility]/ZIP Co de Phone Number [place], [place] * Film Library- Storage Only CT Head (12/15/2023 10:11 PM EDT) Narrative [facility] - 12/15/2023 10:11 PM EDT This exam is auto-finalizing. It's purpose is for storage only. Jack Gutierrez MD IMG FILM LIBRARY O RDERABLES [place], [place] from Last 3 Months Advance Directives [...] full resusitation during periprocedureal period Care Teams Electrical Technician Instructor Relationship Specialty Start Date End Date Katia Stone PA [address] [place] [phone] PCP - General General Internal Medicine 11/10/18
--- OUTSIDE RECORDS SUMMARY | 2023-12-23 09:37 | XMS_ITS | Encounter Summary ---
Author Organization [facility] Address [address] [place] [address] Care Team Providers Care Table Top Tile Setter Name Role Phone Katia Stone PA-C Primary Care Provider [phone]- [phone] Encounter Details Date Type Department Care Team (Late st Contact Info) Description 05/20/[address] [facility] [phone] Unknown, Provider, Social History Tobacco Use Types [...] on filedocumented in this encounter Care Teams Table Top Tile Setter Relationship Specialty Start Date End Date Katia Stone PA-C [address] [place] [phone] PCP - General 05/02/17 documented as of this encounter
--- OUTSIDE RECORDS SUMMARY | 2023-12-23 09:37 | XMS_ITS | Encounter Summary ---
Author Organization [facility] Address [facility] [place] [address] Care Team Providers Care Packing Room Inspector Name Role Phone Katia Stone Primary Care Provider Encounter Details Date Type Department Care Team (Latest Contact Info) Description 11/11/2022 10:00 AM EDT - 11/11/2022 11:59 PM EDT Hospital Encounter [place] [address] Discharge Disposition: Home Social History Tobacco Use [...] Contact Info) Description 02/04/2024 10:00 AM [facility] Hospital Encounter [place] [address] Arrived documented as of this encounter Procedures [...] on filedocumented in this encounter Care Teams Packing Room Inspector Relationship Specialty Start Date End Date Katia Stone PA [address] [place] [phone] PCP - General General Internal Medicine 11/10/18 documented as of this encounter
--- OUTSIDE RECORDS SUMMARY | 2023-12-23 09:37 | XMS_ITS | Encounter Summary ---
Author Organization [facility] [place] [address] Care Team Providers Care Lithographic Plate Maker Name Role Phone Katia Stone Primary Care Provider [phone] Encounter Details Date Type Department Care Team (Latest Contact Info) Description 02/09/2023 10:00 AM [facility] Hospital Encounter [place] [address] Discharge Disposition: Home Social History Tobacco Use [...] AM EST Hospital Encounter [place] [address] Arrived documented as of this encounter Visit Diagnoses Not on filedocumented in this encounter Care Teams Lithographic Plate Maker Relationship Specialty Start Date End Date Katia Stone PA [facility] [address] [place] [phone] PCP - General General Internal Medicine 11/10/18 documented as of this encounter
--- OUTSIDE RECORDS SUMMARY | 2023-12-23 09:37 | XMS_ITS | Encounter Summary ---
Author Organization [facility] Address [address] [place] [address] Care Team Providers Care Parts Department Manager Name Role Phone None, Provider Primary Care Provider Katia Wilks PA-C Primary Care Provider [phone] Reason for Referral * (Routine) - Receiving Office to Obtain Authorization Specialty Diagnoses / Procedures Referred By Jael ho Referred To Contact Coleen Yañez NP [address] [place] [phone] Referral ID Status Reason Start Date Expiration Date Visits Requested Visits Authorized [id number] Receiving Office to Obtain Authorization Specialty Services [...] ho Referred To Contact Coleen Yañez NP [address] [place] [phone] Referral ID Status Reason Start Date Expiration Date Visits Requested Visits Authorized [id number] Receiving Office to Obtain Authorization Specialty Services Required 05/02/2017 1 1 Comments You must contact us if we have not contacted you or you have missed your scheduled appointment. If you have any nursing questions, please don't hesitate to call the Cardiac Arrhythmia Service at [facility] at [phone] or , extension [phone]. For any scheduling of appointments, please call [phone] or , extension [phone]. . * (Routine) - Receiving Office to Obtain Authorization Specialty Diagnoses / Procedures Referred By Contac t Referred To Contact Coleen Yañez NP [address] [phone] Referral ID Status Reason Start Date Expiration Date Visits Requested Visits Authorized [id number] Receiving Office to Obtain Authorization Specialty Services Required 05/02/2017 1 1 Comments Appointment on May 13, 2017 at 9 am for an incision site check with the nurse in the device clinic at [facility]. Phone [phone]. [facility] is located at [address] [place] [address] * (Routine) - Receiving Office to Obtain Authorization Specialty Diagnoses / Procedures Referred By Contac t Referred To Contact Coleen Yañez NP [address] [place] [phone] Referral ID Status Reason Start Date Expiration Date Visits Requested Visits Authorized [id number] Receiving Office to Obtain Authorization Specialty Services [...] [facility] [address] [facility] [place] -Clinics are also held in [facility], and [place], [place] and [facility]. If you live in those areas, we will make arrangements for follow-up appointments in one of those clinics.. Reason for Visit * Reason Comments Bradycardia Pt transferred from [place] with new complete heart block. VSS on arrival. CC DOBBS. Encounter Details Date Type Department Care Team (Late st Contact Info) Description 04/30/2017 17:08 EST - 05/04/2017 18:10 EST Hospital Encounter [facility] Cardiac/Telemetry Unit [address] [place] [id number] Bridget Fields MD [address] [place] [phone] Kenneth Hendrickson MD [address] [place] [phone] Houston Corey MD [address] [place] [phone] Heart block AV third degree (CMS-HCC) (HCC-CMS) [...] Principal/Final Diagnosis: Heart block AV third degree ([facility]) Additional Problems Managed in the Hospital Active Hospital Problems Diagnosis Date Noted ??? *Heart block AV third degree ([facility]) 04/30/2017 ??? Hypertensive urgency 05/01/2017 ??? Acute on chronic diastolic congestive heart failure ([facility]) 05/01/2017 Resolved Hospital Problems Diagnosis Date Noted Date Resolved No resolved problems to display. Principal Procedure: PPM 05/02/17 Secondary Procedures: none Hospital Course: David Farfan is a 66 y.o. male with no known PMH transferred from [facility] on 04/30/17 for complete heart block. 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 He complianed of 2-3 months of SOB which worsened 2-3 weeks prior to admission and reached critical point 2-3 days prior to admission when he had symptoms at rest with 3 pillow orthopnea and mild increased LE swelling prompting presentation to [facility] On arrival to ED he was afebrile, HR 58, BP 190/103 withnegative labs. ECHO showed EF 65% with moderate concentric LVH, mild LA dilation and mild AST/TR. His HR dropped to the 30s prompting transfer to [facility] [...] Post Hospital Visit with Caitie Atwood NP [facility] Cardiology - [facility] (--) [address] [place] [address] [place] [address] Follow-up appointments and procedures Pacemaker check Your [...] [facility] is located at [address] in [place] -Clinics are also held in [facility], and [facility]. If you live in those [...] the nurse in the device clinic at [facility]. Phone [phone]. [facility] is located at [address] [place] [address] Authorizing Provider: Coleen Yañez NP ~Please note: You must contact us if we have not contacted you or you have missed your scheduled appointment. If you have any nursing questions, please don't hesitate to call the Cardiac Arrhythmia Service at [facility] at or , extension [phone]. For any scheduling of appointments, please call [phone] or , extension [phone]. . Authorizing Provider: Coleen Yañez NP Additional Information: Appointment on May 13, 2017 at 9 am for an incision site check with the nurse in the device clinic at the [facility]. . [facility] is located at [address] [place] [address] . You have an appointment with Katia Mccallum PA-C at [facility] on 05/29/2017 at1:00 pm. If you have questions or need to reschedule your appointment, please call [phone]. Please arrive 15 minutes early to complete any necessary. Bring a copy of this AVS Summary with you. Cardiology follow up on June 16, 2017 at 2:[address] Torres at the [facility]. [facility] is located at [address] [place] [address]. Pacemaker device check on August 05, 2017 at 10 am at the [facility]. [facility] is located at [address] [place] [address]. Discharge Handoff Communication I called Katia Mccallum's [...] nurse in the device clinic at the [facility]. . [facility] is located at [address] [place] [address] . You have an appointment with Katia Mccallum PA-C at [facility] on 05/29/2017 at1:00 pm. If you have questions or need to reschedule your appointment, please call [phone]. Please arrive 15 minutes early to complete any necessary. Bring a copy of this AVS Summary with you. Cardiology follow up on June 16, 2017 at 2:[address] Torres at the [facility]. [facility] is located at [address] [place] [address]. Pacemaker device check on August 05, 2017 at 10 am at the [facility]. [facility] is located at [address] [place] [address]. * Discharge Instr - Other Orders* Melida [...] ask to be connected with a social insurance adviser * Attachments The following attachments cannot be sent through Care Everywhere. * HEART FAILURE: AVOIDING TRIGGERS (SCOTTISH) documented in this encounter Medications at Time [...] - 05/04/2017 1500 EST I spoke with hairspring fabrication supervisor CM regarding patient's lack of electricity at his home. She recommended I contact patient's PCP, [facility] for further assistance, but that no other action could be made on Friday. Was unable to leave message for their office today and efforts to contact them on05/02 were met with unreturned messages. I have instructed patient to call their office on Friday to be connected to social insurance adviser. Amelia Partida DO Internal Medicine Resident PGY-3 [...] pick him up at [place]. AMEENA TEIXEIRA chief hospital administrator #[id number] * Amelia Partida MD - 05/04/2017 1204 [...] known PMH admitted in transfer 04/30/17 from [facility] for asymptomatic complete heart block and HTN [...] this morning. He reports he uses the [facility] in [place]. Review of Systems Pertinent items are noted [...] known PMH admitted in transfer 04/30/17 from [facility] for asymptomatic complete heart block and HTN [...] with Katia Mccallum PA-C for [facility] primary care on 05/29 at 1pm Radha Lowery MD Internal Medicine PGY-2 Pager #[phone] 05/03/2017 13:15 Associated attestation - Houston Corey MD - 05/05/2017 1043 EST Attestation statement: I saw and examined the patient with the resident/fellow. I agree with the findings and plan of care documented in the resident's/fellow's note. Patient seen on 05/02/17 * Desi Villatoro RN - 05/02/2017 1000 EST 05/02: Patient has an appointment with Katia Mccallum PA-C at [facility] on 05/29/2017 at 1:00 to establish [...] known PMH admitted in transfer 04/30/17 from [facility] for asymptomatic complete heart block and HTN [...] with Katia Mccallum PA-C for [facility] primary care on 05/29 at 1pm [...] FOR ADMISSION: Heart block AV third degree ([facility]) Patient understands reason for admission: PATIENT CONTACT INFO VERIFIED: Yes (Eva Rudolph [phone]) PATIENT ADDRESS VERIFIED: Yes LIVING ARRANGEMENTS AND ACCESSIBILITY ISSUES: Living Arrangements: Alone Levels: 1 Stairs to enter: 2 Handicap access: None Bathroom located on bedroom level?: Yes What in home social supports are available to the patient? Friends / neighbors. Patient lives alonein a mobile home in [place]. He has no immediate family and depends [...] For Finances: No TRANSPORTATION: Transportation: Family CULTURAL, BUDDHISM and/or LANGUAGE factors affecting health care/discharge planning: [...] gone to [facility] in the past to see Dr. Garcia who has since retired.) Specialists: None Type of Home Health Services: None DME Provider: None Pharmacy: [facility] - [address] - [place], [place] - [address] [facility] [id number] Home Health: None Other: POST HOSPITAL TRANSITION PLAN: Case management will continue to follow through transition to discharge. Anticipate discharge to home when medically stable. No needs are identified at this time. Patient said he has a friend who can provide transportation home. Ivelisse Rueda RN Case Manager #[id number] * Reba Marie, [facility] - 05/01/2017 1111 EST Transitions of Care - Pharmacy Admission Medication Reconciliation David Farfan is a 66 y.o. male admitted on 04/30/2017 for Heart block AV third degree ([facility]) Pharmacist Interventions/Recommendations: 1. Per patient report, the only medication he was taking prior to admission was ibuprofen 400mg daily for knee pain. Counseled patient to stop taking ibuprofen/NSAIDs as they are harmful to the heartand raise blood pressure-->recommended using acetaminophen for pain instead. 2. Confirmed patient would like to use [facility] in [place], [place] at discharge> please send all discharge prescriptions here. 3. Paged team with findings. Medication History Obtained from: Patient (Self) Medication reconciliation was performed. Discrepancies are noted in BOLD. Clarifications are noted in RED. Medications No prescriptions prior to admission. Additional Prior to Admission Kyia-ohe-Ugeugpr Products as noted by Patient/Family: Ibuprofen 400mg daily for knee pain Preferred Pharmacy: [facility] - [place], [place] Barriers to Learning: None apparent Barriers to Obtaining Medications: None apparent Barriers to Taking Medications: None apparent Please feel free to contact me or the Transitions of Care Pharmacy Team with questions or concerns. Thank you Reba Marie, PharmD, [facility] [phone] Pager: [phone] * Houston Corey MD - 05/01/2017 0729 [...] known PMH admitted in transfer 04/30/17 from [facility] for asymptomatic complete heart block and HTN [...] H&P Admit Date: 04/30/2017 PCP: Provider None Braider Operator: none CC: complete heart block HPI: David Farfan is a 66 y.o. male with no known PMH who presents in transfer from [place] for complete heart block. Briefly, patient last saw a doctor approximately 12 years ago after he was admitted for [place] rule outin [place]. He reports having a stress at that time though does not recall being told it was abnormal and was not discharged on any medications. He saw a deputy director once in follow-up and has not [...] present to the ED. On arrival to [facility] patient was afebrile HR 58, RR 18, [...] ASA 324 mg prior to transfer to [facility]. On arrival here, he was alert [...] remote stress test 12 years ago in [place] Review of Systems A 10 point review of systems was discussed and is negative aside from what is noted in HPI. PMH: none PSH: benign tumor removal R forearm, L knee arthroscopy Family History: no history of early CAD/ [place] or heart block Social History: Lifetime non-smoker, currently chews tobacco (1 can lasts 2-3 days). 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 He is currently [...] presents with ??? Bradycardia Pt transferred from [place] with new complete heart block. VSS on arrival. CC DOBBS. HPI HPI Comments: I, Maite Schmitt, am scribing for Kenneth Hendrickson MD while he/she is personallyperforming the service. Maite Schmitt 04/30/2017 17:19 David Farfan is a 66 y.o. male with a history of heart block AV third degree who presents to the ED with bradycardia. The patient was transferred from [place] with complaints of dyspnea on exertion and [...] ER after EKG, whom referred him to [facility] for pacemaker placement. Denies CP, [...] ED with bradycardia.The patient was transferred from [place] with complaints of dyspnea on exertion and [...] W/ CARDS ACCEPTING. NOTE TAKEN DR HENDRICKSON ([facility]). documented in this encounter Miscellaneous Notes [...] AVS received. Pt left with son and qbruxrlo-ce-rzc via wheelchair. BP 115/79 (BP Cuff Location: [...] Care - Don Alvarado RN - 05/02/2017 1300 EST Problem: Daily Care Plan Goals Goal: [...] Care - Meet Matias RN - 05/02/2017 4287 EST Problem: Daily Care Plan Goals Goal: [...] VSS, monitor tele D: Patient arrived to [place] [address] at 1900. Vital signs noted, BP 180s/80s. [...] EST) 05/09/2017 13:5 1 EST Scan 2 Shot Core Drill Operator Helper PROCEDURE/MINOR VELMA GICAL ORDERABLES * ECG REPORT - SCANNED (05/08/2017 8:27 EST) 05/08/2017 8:27 EST Scan 2 Shot Core Drill Operator Helper PROCEDURE/MINOR VELMA GICAL ORDERABLES * IMPLANT RECORD - SCANNED (05/08/2017 8:14 EST) 05/08/2017 8:14 EST Scan 2 Shot Core Drill Operator Helper PROCEDURE/MINOR VELMA GICAL ORDERABLES * ECG REPORT - SCANNED (05/08/2017 8:14 EST) 05/08/2017 8:14 EST Scan 2 Shot Core Drill Operator Helper PROCEDURE/MINOR VELMA GICAL ORDERABLES * ECG REPORT - SCANNED (05/08/2017 8:14 EST) 05/08/2017 8:14 EST Scan 2 Shot Core Drill Operator Helper PROCEDURE/MINOR VELMA GICAL ORDERABLES * IMPLANT RECORD - SCANNED (05/08/2017 8:14 EST) 05/08/2017 8:14 EST Scan 2 Shot Core Drill Operator Helper PROCEDURE/MINOR VELMA GICAL ORDERABLES * (ABNORMAL) GLUCOSE, GLUCOMETER (05/04/2017 7:41 EST) Glucose, Fingerstick 104(H) 70 - 100 mg/dl 05/04/2017 7:42 EST [facility] Fire Department Battalion Chief ID [id number] 05/04/2017 7:42 EST [facility] Comment:Test Performed by Nu rsing Services BLOOD SPECIMEN / Unknown 05/04/2017 7:41 EST 05/04/2017 7:42 EST Houston Corey MD CHEMISTRY & BLOO D GAS ORDERABLES Performing Organization Address City/[facility]/ZIP Co de Phone Number [facility] [address] [place] [address] * CREATININE (05/03/2017 5:42 EST) Creatinine 0.67 0.66 - 1.25 mg/dl 05/03/2017 6:56 EST [facility] GFR, Calculated 100 >60 ml/min/1.7 3m2 05/03/2017 6:56 EST [facility] Comment: eGFR calculated using CKD-EPI equation for non Americans. Multiply eGFR by 1.16 for Americans. Blood specimen (specimen) BLOOD SPECIMEN / Unknown 05/03/2017 5:42 EST 05/03/2017 6:20 EST Houston Corey MD CHEMISTRY & BLOO D GAS ORDERABLES Performing Organization Address [facility]/ZIP Co de Phone Number [facility] [address] [place] [address] * (ABNORMAL) BUN (05/03/2017 5:42 EST) BUN 8(L) 10 - 26 mg/dl 05/03/2017 6:56 EST [facility] Blood specimen (specimen) BLOOD SPECIMEN / Unknown 05/03/2017 5:42 EST 05/03/2017 6:20 EST Houston Corey MD CHEMISTRY & BLOO D GAS ORDERABLES Performing Organization Address [facility] Co de Phone Number [facility] [address] [place] [address] * (ABNORMAL) ELECTROLYTES (05/03/2017 5:42 EST) Sodium 134(L) 136 - 145 mEq/L 05/03/2017 6:56 EST [facility] Potassium 4.2 3.5 - 5.0 mEq/L 05/03/2017 6:56 [facility] Chloride 99 96 - 110 mEq/L 05/03/2017 6:56 [facility] CO2 26 22 - 32 mEq/L 05/03/2017 6:56 [facility] Blood specimen (specimen) BLOOD SPECIMEN / Unknown 05/03/2017 5:42 EST 05/03/2017 6:20 EST Houston Corey MD CHEMISTRY & BLOO D GAS ORDERABLES [facility] [address] [place] [address] * (ABNORMAL) HEMAGRAM (05/03/2017 5:42 EST) WBC 7.95 4.0 - 10.4 K/cmm 05/03/2017 6:46 [facility] RBC 3.97(L) 4.36 - 5.78 M/cmm 05/03/2017 6:46 [facility] Hemoglobin 13.3(L) 13.8 - 17.3 gm/dl 05/03/2017 6:46 [facility] HCT 38.4(L) 39.5 - 50.2 % 05/03/2017 6:46 [facility] MCV 97(H) 81 - 95 fl 05/03/2017 6:46 [facility] MCH 33.5(H) 27.6 - 33.0 pg 05/03/2017 6:46 [facility] MCHC 34.6 32.8 - 36.4 gm/dl 05/03/2017 6:46 [facility] RDW-CV 11.9 <14.2 % 05/03/2017 6:46 [facility] RDW-SD 42.4 <46.0 fl 05/03/2017 6:46 [facility] PLT 196 141 - 377 K/cmm 05/03/2017 6:46 [facility] MPV 12.6 9.5 - 12.7 fl 05/03/2017 6:46 [facility] Blood specimen (specimen) BLOOD SPECIMEN / Unknown 05/03/2017 5:42 EST 05/03/2017 6:20 EST Houston Croey MD HEMATOLOGY & PF4 ORDERABLES [facility] [address] [place] [address] * EKG 12-LEAD (05/03/2017 4:23 EST) 05/03/2017 4:23 EST Narrative [facility] EKG - 05/09/2017 13:47 EST ? [facility] ? Test Date: ?2017-05-03 Pat Name: ? DAVID FARFAN ?Department: ?? [facility] [address] ? Room: ? MW514 Gender: ? M ?Skin Fitter: ?? [id number] : ?1950 ? Requested By: MARIO ALBERTO SCANLON Order Number: [id number] ? Martha OAKES: ?? SENG PERSON SA, MD ? Measurements Intervals ?[place] ? Rate: ? 75 ? P: ?51 VT: ? 172 ?QRS: ?-77 QRSD: ? 172 [...] Sa, MD - 05/09/2017 [facility] Test Date: 2017-05-03 Pat Name: DAVID FARFAN Department: JAME Chao Room: [facility] Gender: M Skin Fitter: [id number] : 1950 Requested By: MARIO ALBERTO SCANLON Order Number: [id number] Reading MD: SENG ROBLEDO Measurements Intervals [place] Rate: 75 P: 51 VT: 172 QRS: -77 QRSD: 172 T: 92 [...] MD CARDIAC ECG ORDERABL ES [facility] EKG * ECG REPORT - SCANNED (05/02/2017 11:16 EST) 05/02/2017 11:1 6 EST Scan 2 Shot Core Drill Operator Helper PROCEDURE/MINOR VELMA GICAL ORDERABLES * PORTABLE CHEST [...] present on the right. Procedure Note Umang Dguan MD - 05/02/2017 PORTABLE CHEST 1 VIEW [...] 05/02/2017 10:1 0 EST Narrative [facility] EKG - 05/08/2017 8:22 EST ? [facility] ? Test Date: ?2017-05-02 Pat Name: ? DAVID FARFAN ?Department: ?? [facility] [address] ? Room: ? MW514 Gender: ? M ?Skin Fitter: ?? [id number] : ?1950 ? Requested By: SHAKIRA Martinez Order Number: [id number] ? Martha OAKES: ?? LALY BARBER MD ? Measurements Intervals ?[place] ? Rate: ? 63 ? P: ?40 VT: ? 170 ?QRS: ?-72 QRSD: ? 180 ?T: ?86 QT: ? 492 ? QTc: ?504 ? Interpretive Statements DUAL CHAMBER PACER ELECTRONIC VENTRICULAR PACEMAKER I reviewed the tracing and have either agreed or edited the findings in this report. Electronically Signed On 05-08-17 08:22:30 EST by LALY BARBER MD. Procedure Note Laly Barber MD - 05/08/2017 [facility] Test Date: 2017-05-02 Pat Name: DAVID FARFAN Department: [place] [address] Room: [facility] Gender: M Skin Fitter: [id number] : 1950 Requested By: SHAKIRA Martinez Order Number: [id number] Martha MD: LALY BARBER MD Measurements Intervals [place] Rate: 63 P: 40 VT: 170 QRS: -72 QRSD: 180 T: 86 QT: 492 QTc: 504 Interpretive Statements DUAL CHAMBER PACER ELECTRONIC VENTRICULAR PACEMAKER I reviewed the tracing and have either agreed or edited the findings inthis report. Electronically Signed On 05-08-17 08:22:30 EST by LALY YAO. Tony Rosenberg MD CARDIAC ECG O RDERABLES [facility] EKG * PERMANENT PACEMAKER PROCEDURE (05/02/2017 10:00 EST) Anatomical Region Laterality Modality Other 05/02/2017 10:0 0 EST Narrative 05/02/2017 11:24 EST *Cardiology* [address] [place] [address] Device Implantation Patient: David Farfan ? Study Date: ?05/02/2017 ? Accession #: ? [id number] : ? 1950 Referring: Attending: Tony Rosenberg [...] HARDWARE: Implanted device: Clifford Appiah Serial number: [id number]. LEAD PARAMETERS + + + + Lead # ? 1 ? 2 ? + + + + Chamber ? RA ? RV ? + + + + Date implanted ?? 05/02/2017 ? 05/02/2017 ? + + + + Model information [employer] ? [employer] Ingevity ? ingevity mr ? MRI ? + + + + Serial number ? [id number] ? [id number] ? + + + + Location ? [...] Note Tony Rosenberg MD - 05/02/2017 *Cardiology* [address] [place] [address] Device Implantation Patient: David Farfan Study Date: [...] device: Clifford ESTEVEZ DR - Serial number: [id number]. LEAD PARAMETERS + + + + Lead # 1 2 + + + + Chamber RA RV + + + + Date implanted 05/02/2017 05/02/2017 + + + + Model information Trenergi Mathew hood mr MRI + + + + Serial number [id number] + + + + Location RA appendage [...] 0.68 0.66 - 1.25 mg/dl 05/02/2017 7:26 [facility] GFR, Calculated 100 >60 ml/min/1.7 3m2 05/02/2017 7:26 [facility] Comment: eGFR calculated using CKD-EPI equation for non Americans. Multiply eGFR by 1.16 for Americans. Blood specimen (specimen) BLOOD SPECIMEN / Unknown 05/02/2017 6:11 EST 05/02/2017 6:47 EST Houston Corey MD CHEMISTRY & BLOO D GAS ORDERABLES [facility] [address] [place] [address] * BUN (05/02/2017 6:11 EST) BUN 10 10 - 26 mg/dl 05/02/2017 7:26 [facility] Blood specimen (specimen) BLOOD SPECIMEN / Unknown 05/02/2017 6:11 EST 05/02/2017 6:47 EST [place] Corey MD CHEMISTRY & BLOO D GAS ORDERABLES Performing Organization Address [facility] Co de Phone Number [facility] [address] [place] [address] * (ABNORMAL) ELECTROLYTES (05/02/2017 6:11 EST) Sodium 135(L) 136 - 145 mEq/L 05/02/2017 7:26 [facility] Potassium 4.4 3.5 - 5.0 mEq/L 05/02/2017 7:26 [facility] Chloride 102 96 - 110 mEq/L 05/02/2017 7:26 [facility] CO2 23 22 - 32 mEq/L 05/02/2017 7:26 [facility] Blood specimen (specimen) BLOOD SPECIMEN / Unknown 05/02/2017 6:11 EST 05/02/2017 6:47 EST [place] Corey MD CHEMISTRY & BLOO D GAS ORDERABLES Performing Organization Address [facility]/ZIP Co de Phone Number [facility] [address] [place] [address] * (ABNORMAL) HEMAGRAM (05/02/2017 6:11 EST) WBC 6.92 4.0 - 10.4 K/cmm 05/02/2017 6:59 [facility] RBC 3.67(L) 4.36 - 5.78 M/cmm 05/02/2017 6:59 [facility] Hemoglobin 12.3(L) 13.8 - 17.3 gm/dl 05/02/2017 6:59 [facility] HCT 35.2(L) 39.5 - 50.2 % 05/02/2017 6:59 [facility] MCV 96(H) 81 - 95 fl 05/02/2017 6:59 [facility] MCH 33.5(H) 27.6 - 33.0 pg 05/02/2017 6:59 EST [facility] MCHC 34.9 32.8 - 36.4 gm/dl 05/02/2017 6:59 EST [facility] RDW-CV 11.9 <14.2 % 05/02/2017 6:59 [facility] RDW-SD 41.1 <46.0 fl 05/02/2017 6:59 EST [facility] PLT 185 141 - 377 K/cmm 05/02/2017 6:59 [facility] MPV 12.9(H) 9.5 - 12.7 fl 05/02/2017 6:59 EST [facility] Blood specimen (specimen) BLOOD SPECIMEN / Unknown 05/02/2017 6:11 EST 05/02/2017 6:47 EST [place] Corey MD HEMATOLOGY & PF4 ORDERABLES Performing Organization Address City/[facility] Co de Phone Number [facility] [address] [place] [address] * (ABNORMAL) TROPONIN I (05/01/2017 7:52 EST) Troponin I (ng/mL) 0.035(H) <0.034 ng/ml 05/01/2017 9:10 EST [facility] Blood specimen (specimen) BLOOD SPECIMEN / Unknown 05/01/2017 7:52 EST 05/01/2017 8:19 EST Amelia Partida DO CHEMISTRY & BLOOD GAS ORDERABLES Performing Organization Address City/[facility]/ZIP Co de Phone Number [facility] [address] [place] [address] * MAGNESIUM (05/01/2017 6:01 EST) Magnesium 2.1 1.7 - 2.8 mg/dl 05/01/2017 6:46 EST [facility] Blood specimen (specimen) BLOOD SPECIMEN / Unknown 05/01/2017 6:01 EST 05/01/2017 6:15 EST Amelia Partida DO CHEMISTRY & BLOOD GAS ORDERABLES Performing Organization Address [facility] Co de Phone Number [facility] [address] [place] [address] * CREATININE (05/01/2017 6:01 EST) Creatinine 0.67 0.66 - 1.25 mg/dl 05/01/2017 6:46 [facility] GFR, Calculated 100 >60 ml/min/1.7 3m2 05/01/2017 6:46 [facility] Comment: eGFR calculated using CKD-EPI equation for non Americans. Multiply eGFR by 1.16 for Americans. Blood specimen (specimen) BLOOD SPECIMEN / Unknown 05/01/2017 6:01 EST 05/01/2017 6:15 EST [place] Corey MD CHEMISTRY & BLOO D GAS ORDERABLES Performing Organization Address [facility] Co de Phone Number [facility] [address] [place] [address] * (ABNORMAL) BUN (05/01/2017 6:01 EST) BUN 6(L) 10 - 26 mg/dl 05/01/2017 6:46 [facility] Blood specimen (specimen) BLOOD SPECIMEN / Unknown 05/01/2017 6:01 EST 05/01/2017 6:15 EST [place] Corey MD CHEMISTRY & BLOO D GAS ORDERABLES Performing Organization Address [facility] Co de Phone Number [facility] [address] [place] [address] * (ABNORMAL) ELECTROLYTES (05/01/2017 6:01 EST) Sodium 134(L) 136 - 145 mEq/L 05/01/2017 6:46 [facility] Potassium 4.5 3.5 - 5.0 mEq/L 05/01/2017 6:46 [facility] Chloride 101 96 - 110 mEq/L 05/01/2017 6:46 [facility] CO2 23 22 - 32 mEq/L 05/01/2017 6:46 [facility] Blood specimen (specimen) BLOOD SPECIMEN / Unknown 05/01/2017 6:01 EST 05/01/2017 6:15 EST [place] Corey MD CHEMISTRY & BLOO D GAS ORDERABLES [facility] [address] [place] [address] * (ABNORMAL) HEMAGRAM (05/01/2017 6:01 EST) WBC 7.09 4.0 - 10.4 K/cmm 05/01/2017 6:27 [facility] RBC 3.76(L) 4.36 - 5.78 M/cmm 05/01/2017 6:27 [facility] Hemoglobin 12.7(L) 13.8 - 17.3 gm/dl 05/01/2017 6:27 [facility] HCT 36.4(L) 39.5 - 50.2 % 05/01/2017 6:27 [facility] MCV 97(H) 81 - 95 fl 05/01/2017 6:27 [facility] MCH 33.8(H) 27.6 - 33.0 pg 05/01/2017 6:27 [facility] MCHC 34.9 32.8 - 36.4 gm/dl 05/01/2017 6:27 [facility] RDW-CV 11.9 <14.2 % 05/01/2017 6:27 [facility] RDW-SD 42.1 <46.0 fl 05/01/2017 6:27 [facility] PLT 205 141 - 377 K/cmm 05/01/2017 6:27 [facility] MPV 12.8(H) 9.5 - 12.7 fl 05/01/2017 6:27 [facility] Blood specimen (specimen) BLOOD SPECIMEN / Unknown 05/01/2017 6:01 EST 05/01/2017 6:15 EST [place] Corey MD HEMATOLOGY & PF4 ORDERABLES Performing Organization Address [facility] Co de Phone Number [facility] [address] [place] [address] * LIPID PROFILE (INCLUDES CHOLESTEROL, TRIGLYCERIDES, HDL, LDL) (05/01/2017 6:01 EST) Cholesterol 148 mg/dl 05/01/2017 6:46 [facility] Comment: Desirable:<200 Borderline High:200-239 High:>vf=355 Triglycerides 65 mg/dl 05/01/2017 6:46 [facility] Comment: Normal:<150 Borderline High:150-199 High:200-499 Very High:>qr=555 HDL 39 mg/dl 05/01/2017 6:46 [facility] Comment: Low:<40 Normal:40-60 Desirable: >60 LDL, Calculated 96 mg/dl 8 6:46 [facility] Comment: Optimal:<100 Near Optimal:100-129 Borderline High:130-159 High:160-189 Very High:>vx=922 Chol/HDL Ratio 3.8 05/01/2017 6:46 [facility] Fasting? Unknown 05/01/2017 6:46 [facility] Non HDL Cholesterol 109 mg/dl 05/01/2017 6:46 [facility] Comment: Desirable:<130 Borderline:130-159 High: 160-189 Very High: >ps=433 Blood specimen (specimen) BLOOD SPECIMEN / Unknown 05/01/2017 6:01 EST 05/01/2017 6:15 EST [place] Corey MD CHEMISTRY & BLOO D GAS ORDERABLES Performing Organization Address City/[facility]/ZIP Co de Phone Number [facility] [address] [place] [address] * (ABNORMAL) TROPONIN I (05/01/2017 0:20 EST) Troponin I (ng/mL) 0.055(H) <0.034 ng/ml 05/01/2017 1:01 [facility] Blood specimen (specimen) BLOOD SPECIMEN / Unknown 05/01/2017 0:20 EST 05/01/2017 0:24 EST Amelia Partida DO CHEMISTRY & BLOOD GAS ORDERABLES Performing Organization Address [facility] Co de Phone Number [facility] [address] [place] [address] * HEMOGLOBIN A1C (05/01/2017 0:20 EST) Hemoglobin A1C 5.7 % 05/01/2017 10:05 [facility] Comment: Reference Range: <5.7% Normal 5.7-6.4% Prediabetes =>6.5% Diagnostic for diabetes (if confirmed) Goals for glycemic control in diabetes ADA 2017 For non adults with diabetes: ?? Target <7.5% For children and adolescents with type 1 diabetes: ?? Target <7.0% More or less stringent targets may be appropriate for individual patients. Est Avg Glucose 117 mg/dl 8 10:05 [facility] Comment: eAG represents the A1c result expressed as average glucose in mg/dl. Blood specimen (specimen) BLOOD SPECIMEN / Unknown 05/01/2017 0:20 EST 05/01/2017 0:24 EST [place] Corey MD CHEMISTRY & BLOO D GAS ORDERABLES Performing Organization Address [facility] Co de Phone Number [facility] [address] [place] [address] * (ABNORMAL) PROTIME (04/30/2017 19:33 EST) Pro Time 15.1(H) 10.3 - 13.4 secs 04/30/2017 20:08 [facility] Comment:NOTE NEW REFERENCE Vern FUNG OF APR 03 2017 I.N.R. 1.3(H) 0.9 - 1.1 Ratio 04/30/2017 20:08 [facility] Comment: Moderate Intensity Coumadin INR = 2.0-3.0 Adjustments in anticoagulant therapy dose should be based upon the INR and NOT the Pro Time. Blood specimen (specimen) BLOOD SPECIMEN / Unknown 04/30/2017 19:33 EST 04/30/2017 19:47 EST [place] Corey MD HEMATOLOGY & PF4 ORDERABLES Performing Organization Address City/[facility]/ZIP Co de Phone Number [facility] [address] [place] [address] * ED/URGENT CARE ADD-ON (04/30/2017 18:20 EST) Tests to be added LYME AB, 04/30/2017 18:16 EST [facility] Comment:TSH Number for problems [id number] (ED) 04/30/2017 18:16 EST [facility] TOPOGRAPHY UNKNOWN / Unknown 04/30/2017 18:20 EST 04/30/2017 18:23 EST Amelia Partida DO HEMATOLOGY & PF4 ORDERABLES Performing Organization Address City/[facility] Co de Phone Number [facility] [address] [place] [address] * OUTSIDE IMAGES ??? ECHO IMAGES (04/30/2017 17:24 EST) Anatomical Region Laterality Modality Other 04/30/2017 17:2 4 EST Narrative 04/30/2017 17:24 EST This is an outside study - there is no report. Procedure Note VINEGAR MAKER, IMAGING - 04/30/2017 This is an outside study - there is no report. Provider Unknown IMG OTHER IMAGING OR DERABLES * EKG 12-LEAD (04/30/2017 16:43 EST) 04/30/2017 16:4 3 EST Narrative [facility] EKG - 05/02/2017 11:12 EST ?[facility] Emergency ? Test Date: ?2017-04-30 Pat Name: ? DAVID FARFAN ?Department: ?? ED ? Room: ? AC12 Gender: ? M ?Skin Fitter: ?? [id number] : ?1950 ? Requested By: DONNA HOOK L Order Number: [id number] ? Reading MD: ?? ANA LOBEL MD ? Measurements Intervals ?[place] ? Rate: ? 33 ? P: ? VT: ? 0 ?QRS: ?15 QRSD: ? 110 [...] Note Ana Marsh MD - 05/02/2017 [facility] Emergency Test Date: 2017-04-30 Pat Name: DAVID FARFAN Department: ED Room: [facility] Gender: M Skin Fitter: [id number] : 1950 Requested By: DONNA Cabral Order Number: [id number] Reading MD: ANA MARSH MD Measurements Intervals [place] Rate: 33 P: VT: 0 QRS: 15 QRSD: 110 T: 42 [...] MD CARDIAC ECG ORDERAB LES [facility] EKG * TSH (04/30/2017 16:40 EST) TSH 1.34 0.47 - 4.68 uIU/ml 04/30/2017 19:24 [facility] BLOOD SPECIMEN / Unknown 04/30/2017 16:40 EST 04/30/2017 16:52 EST Bridget Fields MD CHEMISTRY & BLOOD G ORDERABLES [facility] [address] [place] [address] * LYME AB (04/30/2017 16:40 EST) Lyme AB Negative 05/01/2017 11:39 [facility] Comment:Reference Range: Neg ative BLOOD SPECIMEN / Unknown 04/30/2017 16:40 EST 04/30/2017 16:52 EST Bridget Fields MD IMMUNOLOGY AND SERO LOGY ORDERABLES Performing Organization Address [facility] Co de Phone Number [facility] [address] [place] [address] * (ABNORMAL) PROFILE ED CARDIAC PACK (04/30/2017 16:40 EST) Sodium 134(L) 136 - 145 mEq/L 04/30/2017 17:16 [facility] Potassium 4.2 3.5 - 5.0 mEq/L 04/30/2017 17:16 [facility] Chloride 105 96 - 110 mEq/L 04/30/2017 17:16 [facility] CO2 20(L) 22 - 32 mEq/L 04/30/2017 17:16 [facility] BUN 6(L) 10 - 26 mg/dl 04/30/2017 17:16 [facility] Creatinine 0.61(L) 0.66 - 1.25 mg/dl 04/30/2017 17:16 [facility] GFR, Calculated 104 >60 ml/min/1 .73m2 04/30/2017 17:16 [facility] Comment: eGFR calculated using CKD-EPI equation for non Americans. Multiply eGFR by 1.16 for Americans. Magnesium 1.7 1.7 - 2.8 mg/dl 04/30/2017 17:16 [facility] WBC 7.78 4.0 - 10.4 K/cmm 04/30/2017 17:12 [facility] RBC 3.72(L) 4.36 - 5.78 M/cmm 04/30/2017 17:12 [facility] Hemoglobin 12.6(L) 13.8 - 17.3 gm/dl 04/30/2017 17:12 [facility] HCT 35.7(L) 39.5 - 50.2 % 04/30/2017 17:12 [facility] MCV 96(H) 81 - 95 fl 04/30/2017 17:12 [facility] MCH 33.9(H) 27.6 - 33.0 pg 04/30/2017 17:12 [facility] MCHC 35.3 32.8 - 36.4 gm/dl 04/30/2017 17:12 [facility] RDW-CV 11.9 <14.2 % 04/30/2017 17:12 [facility] RDW-SD 41.5 <46.0 fl 04/30/2017 17:12 [facility] PLT 197 141 - 377 K/cmm 04/30/2017 17:12 [facility] MPV 12.5 9.5 - 12.7 fl 04/30/2017 17:12 [facility] % Neutrophils 62.1 % 04/30/2017 17:12 [facility] % Lymphocytes 23.9 % 04/30/2017 17:12 [facility] % Monocytes 11.6 % 04/30/2017 17:12 [facility] % Eosinophils 1.2 % 04/30/2017 17:12 [facility] % Basophils 0.9 % 04/30/2017 17:12 [facility] % Immature Grans 0.3 % 04/30/2017 17:12 [facility] ABS Neutrophils 4.84 2.20 - 8.85 K/cmm 04/30/2017 17:12 [facility] ABS Lymphs 1.86 1.09 - 3.30 K/cmm 04/30/2017 17:12 [facility] ABS Monocytes 0.90(H) 0.1 - 0.8 K/cmm 04/30/2017 17:12 [facility] ABS Eosinophils 0.09 0.03 - 0.61 K/cm 04/30/2017 17:12 [facility] ABS Basophils 0.07 0.01 - 0.11 K/cm 04/30/2017 17:12 [facility] ABS Immature Grans 0.02 0 - 0.06 K/cm 04/30/2017 17:12 [facility] Type of Diff: Automated 04/30/2017 17:12 [facility] Troponin I (ng/mL) 0.040(H) <0.034 ng/ml 04/30/2017 17:29 [facility] Glucose, Screening 100 70 - 100 mg/dl 04/30/2017 17:16 [facility] Hold Blue Top Sample for coagulation will be discarded after 4 hours 04/30/2017 17:04 [facility] Blood specimen (specimen) BLOOD SPECIMEN / Unknown 04/30/2017 16:40 EST 04/30/2017 16:52 EST Bridget Fields MD PACKAGES & DNA PROB E ORDERABLES Performing Organization Address City/State/[facility] Co de Phone Number [facility] [address] [place] [address] documented in this encounter Visit Diagnoses Diagnosis [...] 04/201705/01/2017 documented in this encounter Care Teams Parts Department Manager Relationship Specialty Start Date End Date None, Provider PCP - General 04/30/17 05/01/17 Katia Stone, PABijalC [address] [place] [id number] PCP - General 05/02/17 documented as of this encounter
--- OUTSIDE RECORDS SUMMARY | 2023-12-23 09:37 | XMS_ITS | Encounter Summary ---
Author Organization [facility] Address [facility] [place] [address] Care Team Providers Care Flatcar Whacker Name Role Phone Katia Stone Primary Care Provider [phone] Encounter Details Date Type Department Care Team (Late st Contact Info) Description 12/15/2023 10:15 PM EDT Ancillary Procedure Radiology Library at [facility] [place] [address] Jack Gutierrez MD [address] [place] [address] [address] [place], [place] [id number] Social History Tobacco Use Types Packs/Day Years Used Date Smoking Tobacco: Never Smokeless Tobacco: Never Alcohol Use Standard Drinks/Week Comments Yes 14 (1 standard drink = 0.6 oz pu re alcohol) [facility] Inpatient Questions Answer Date Recorded [...] AM EST Hospital Encounter Non-Invasive Cardiology Lab [facility] [place] [address] Arrived documented as of this encounter Procedures [...] Gutierrez MD IMG FILM LIBRARY O RDERABLES [place], [place] documented in this encounter Visit Diagnoses Not on filedocumented in this encounter Care Teams Flatcar Whacker Relationship Specialty Start Date End Date Katia Stone PA [address] [place] [phone] PCP - General General Internal Medicine 11/10/18 documented as of this encounter
--- OUTSIDE RECORDS SUMMARY | 2023-12-23 09:37 | XMS_ITS | Encounter Summary ---
Author Organization [facility] Address [facility] [place] [place] [address] Care Team Providers Care Drilling Field Specialist Name Role Phone Katia Stone Primary Care Provider [phone] Encounter Details Date Type Department Care Team (Latest Contact Info) Description 08/08/2023 10:00 AM EDT - 08/08/2023 11:59 PM EDT Hospital Encounter [place] [address] Discharge Disposition: Home Social History Tobacco Use [...] st Contact Info) Description 02/04/2024 10:00 AM [facility] Hospital Encounter Non[place] [address] Arrived documented as of this encounter Procedures [...] on filedocumented in this encounter Care Teams Drilling Field Specialist Relationship Specialty Start Date End Date Katia Stone PA [address] [place] [phone] PCP - General General Internal Medicine 11/10/18 documented as of this encounter
--- OUTSIDE RECORDS SUMMARY | 2023-12-23 09:37 | XMS_ITS | Encounter Summary ---
Author Organization [facility] [place] [address] Care Team Providers Care Msw Name Role Phone Katia Stone Primary Care Provider Reason for Visit * Reason Onset Date Comments Other 09/24/2022 Cardiac Device I mplant Teaching/Education Encounter Details Date Type Department Care Team (Late st Contact Info) Description 09/24/2022 Notes Only Cardiology at [address] [address] Magi Lowery Other (Cardiac Device Implant Teaching/Education) Social History Tobacco Use Types Packs/Day Years Used Date Smoking Tobacco: Never Smokeless Tobacco: Never Alcohol Use Standard Drinks/Week Comments Yes 14 (1 standard drink = 0.6 oz pu re alcohol) [facility] Inpatient Questions Answer Date Recorded Does Anyone [...] to call the Cardiac Device Clinic at [phone] with any questions. Plan: Post op check: [...] AM EST Hospital Encounter Non-[place] [address] Arrived documented as of this encounter Visit Diagnoses Not on filedocumented in this encounter Care Teams Msw Relationship Specialty Start Date End Date Katia Stone PA [address] [facility] [place] [facility] [place] [phone] PCP - General General Internal Medicine 11/10/18 documented as of this encounter
--- OUTSIDE RECORDS SUMMARY | 2023-12-23 09:37 | XMS_ITS | Encounter Summary ---
Author Organization [facility] Address [address] [place] [address] Care Team Providers Care Content Development Specialist Name Role Phone Katia Stone PA-C Primary Care Provider [phone] Encounter Details Date Type Department Care Team (Late st Contact Info) Description 05/20/2017 Results Only Imaging [facility] [phone] Unknown, Provider, Social History Tobacco Use Types [...] on filedocumented in this encounter Care Teams Content Development Specialist Relationship Specialty Start Date End Date Katia Stone PA-C [address] [place] [phone] PCP - General 05/02/17 documented as of this encounter
--- OUTSIDE RECORDS SUMMARY | 2023-12-23 09:37 | XMS_ITS | Encounter Summary ---
Author Organization [facility] Address [facility] [place] [place] [address] Care Team Providers Care Elementary Art Teacher Name Role Phone Katia Stone Primary Care Provider [phone] Encounter Details Date Type Department Care Team (Latest Contact Info) Description 02/09/2023 10:00 AM EST - 02/09/2023 11:59 PM [facility] Hospital Encounter Non-[place] [address] Discharge Disposition: Home Social History Tobacco Use [...] AM EST Hospital Encounter Non-Invasive [place] [address] Arrived documented as of this encounter Procedures [...] filedocumented in this encounter Care Teams Elementary Art Teacher Relationship Specialty Start Date End Date Katia Stone PA [address] [place] [phone] PCP - General General Internal Medicine 11/10/18 documented as of this encounter
--- OUTSIDE RECORDS SUMMARY | 2023-12-23 09:37 | XMS_ITS | Encounter Summary ---
Author Organization [facility] Address [facility] [place] [address] Care Team Providers Care Global Security Architect Name Role Phone Katia Stone Primary Care Provider [phone] Encounter Details Date Type Department Care Team (Latest Contact Info) Description 05/10/2023 10:00 AM EST - 05/10/2023 11:59 PM [facility] Hospital Encounter Non-Invasive [place] [address] Discharge Disposition: Home Social History Tobacco Use [...] AM EST Hospital Encounter Non-Invasive [place] [address] Arrived documented as of this encounter Procedures [...] filedocumented in this encounter Care Teams Global Security Architect Relationship Specialty Start Date End Date Katia Stone PA [address] [facility] [place] [address] PCP - General General Internal Medicine 11/10/18 documented as of this encounter
--- OUTSIDE RECORDS SUMMARY | 2023-12-23 09:38 | XMS_ITS | Encounter Summary ---
Author Organization Formerly [facility] Address [facility] [place] [address] Care Team Providers Care Paper Carrier Name Role Phone Katia Stone Primary Care Provider [phone] Encounter Details Date Type Department Care Team (Late st Contact Info) Description 09/11/2022 Orders Only Cardiology at [address] [address] Dylan Story MD [facility] [place] [address] Pacemaker battery depletion; AV block Social History [...] [facility] Encounter Non-Invasive [place] [phone] Arrived documented as of this encounter Results * (ABNORMAL) Basic Metabolic Panel (non-fasting) (09/23/2022 12:05 PM EDT) [facility] Glucose 106 65 - 199 mg/dL [facility] Comment:Diabetes: >=200 mg/d L plus symptoms Blood Urea Nitrogen 8(L) 10 - 20 mg/dL [facility] Creatinine 0.58(L) 0.80 - 1.50 mg/dL [facility] Sodium 130(L) 135 - 145 mmol/L [facility] Potassium 5.0 3.5 - 5.0 mmol/L [facility] Comment: Please note: ??Patients with WBC >100,000 may have falsely elevated Potassium levels. ??For accurate Potassium quantification in these patients send serum separator tube (gold top) for subsequent determinations. ??Contact the Clinical Chemistry Laboratory if there are any questions. Chloride 95(L) 98 - 107 mmol/L [facility] Carbon Dioxide 25 22 - 31 mmol/L [facility] Anion Gap 10 5 - 15 mmol/L [facility] Calcium 9.3 8.5 - 10.5 mg/dL [facility] Est Glomerular Filtration Rate 104 >=60 mL/min/1. 73 m?? [facility] Comment: This patient's estimated GFR was [...] Story MD CHEMISTRY ORDERABLES Performing Organization Address City/State/[facility] Co de Phone Number [facility] [address] documented in this encounter Visit Diagnoses Diagnosis Pacemaker battery depletion Fitting and adjustment of cardiac pacemaker AV block Atrioventricular block, unspecified documented in this encounter Care Teams Paper Carrier Relationship Specialty Start Date End Date Katia Stone PA [address] [place] [phone] PCP - General General Internal Medicine 11/10/18 documented as of this encounter
--- OUTSIDE RECORDS SUMMARY | 2023-12-23 09:38 | XMS_ITS | Encounter Summary ---
Author Organization [facility] Address [facility] [place] [address] Care Team Providers Care Dancing Instructor Name Role Phone Katia Stone Primary Care Provider [phone] Reason for Visit * Auth/Cert (Routine) Specialty [...] OR PM) (WRVU 4.92) Dylan Story MD [facility] [address] [facility] Referral ID Status Reason Start Date Expiration Date Visits Re quested Visits Authorized [id number] 1 1 Encounter Details Date Type Department Care Team (Late st Contact Info) Description 09/23/2022 12:06 PM EDT - 09/23/2022 2:36 PM EDT Surgery [place] [address] Dylan Story MD [facility] [place] [address] ELECTROPHYSIOLOGY PROCEDURE Social History Tobacco Use Types Packs/Day Years Used Date Smoking Tobacco: Never Smokeless Tobacco: Never Tobacco Cessation:Counseling Given: Not Answered Alcohol Use Standard Drinks/Week Comments Yes 14 (1 standard drink = 0.6 oz pu re alcohol) [facility] Inpatient Questions Answer Date Recorded [...] Patient Age: 71 y.o. Language: Citizen Of [place] Race: White Ethnicity: Not nor Admit date: 09/23/2022 Discharge date and time: 09/24/2022 1315 Attending Physician: Dylan Story MD Discharge Physician: Dylan Story MD Follow-up Recommendations for Providers: NEW - replaced [employer] dual lead pacemaker with new atrial and ventricular pacing leads. Old leads capped and abandoned. Stable for discharge to home Needs non-emergent ambulance for transport back to [facility] in [place], [place]. Outpatient follow up scheduled at [facility] for 10 post implant check. Inpatient Provider Contact Information: Cardiac Electrophysiology [phone], option #3 Discharge Diagnoses (Hospital Problems) and Secondary Diagnoses (Chronic Problems): Active Hospital Problems Diagnosis Complete heart block Pacemaker - dual lead [employer] pacemaker Resolved Hospital Problems No resolved problems to display. Operations/Major Procedures: Operations: Procedure(s): ELECTROPHYSIOLOGY PROCEDURE REMOVAL PPM GENERATOR W REPL PPM GEN; DUAL LEAD (WRVU 5.52) REPOSITIONING PREVIOUSLY PLACED ELECTRODE (ICD OR PM) (WRVU 4.92) 09/23/2022 History of Presentation: 71 y.o. male with a history of complete heart block s/p dual chamber permanent pacemaker April 2017 at [facility] course complicated by both pericardial effusion [...] RV pacing leads were implanted. A new [employer] pacemaker pulse generator was also implanted. [...] 106 (L): Data is abnormally low Treatments: Court Messenger Model # Serial # Generator (New) [employer] [id number] Atrial Lead (New) [employer] Sci [id number] RV Lead [employer] [id number] [id number] Old RA lead capped and abandoned Old RV lead found to have insulation deterioration and this lead was also capped and abandoned New RA and RV leads placed [employer] pulse generator implanted DDD @ 60/120 Discharge [...] by mouth 3 times daily. Generic drug: dtkgjz-qjczllno-ryefoow DR 1 capsule Refills: 0 fentaNYL 12 [...] incision. Make sure to use a cloth dyer (such as a towel) in between the [...] F. The office scheduling phone number is [phone]. ARM MOVEMENT RESTRICTIONS POST-IMPLANT - Do not [...] please call the Cardiac ElectrophysiologyTriage Nurse at [phone], option 3. General Instructions Future Appointments and Orders Future Appointments and Orders Future Appointments Provider Department Dept Phone 10/04/2022 11:00 AM Maite Lozano RN Cardiology at [facility] Arrive at: [place] [facility] [phone] 12/27/2022 11:00 AM Maite Lozano RN Cardiology at [facility] Arrive at: [place] [facility] [phone] Discharge References/Attachments None Dylan Story MD [facility] [...] incision. Make sure to use a cloth dyer (such as a towel) in between the [...] F. The office scheduling phone number is [phone]. ARM MOVEMENT RESTRICTIONS POST-IMPLANT - Do not [...] please call the Cardiac ElectrophysiologyTriage Nurse at [phone], option 3. documented in this encounter Medications [...] General Information Tim Mera 1950 Medicare Number: [id number] Transport Date: 09/24/22 (PCS is valid for round trips on this date and for all repetitive trips in the 60-day range as noted below.) Origin: [place] [address] Destination: [facility] [address] [place] [address] Is the patient's stay covered under Medicare [...] is contraindicated by the patient's condition: medical assisting instructor required. Patient unable to tolerate seated [...] van (i.e. seated during transport, without medical assisting instructor or monitoring?): No 4) In addition to complete questions 1-3 above, please select any of the following conditions that apply: *Note: supporting documentation for any boxes checked must be maintained in the patient's medical records Moderate/severe pain on movement camp attendant required Section III - Signature of [...] 09/24/2022 10:54 AM EDT Office of Care Management/Associate Sales Patient Name: Tim Mera : 1950 Patient is returning to a SNF bed at [facility]. [facility] arranged for a 1300hrs transport. Ambulance will need: Medicare ambulance form completed and signed (MD or Personal Injury Attorney RN/ROOFING FOREMAN) Copy of patient demographics [place] Out of Hospital DNR/DNI order, if active No MD to MD report necessary. Please call Nursing Report to , ask for frontend engineer. Info to accompany patient: Copies of Medication Administration Records and IV sheets for past 10 days. Plan: Associate Sales will be available to the patient and Personal Injury Attorney-RN and/or Social Workerfor further assistance. Patient will be discharged to: [facility] [address] [place] [address] Paco Haider, Associate Sales * Humberto Ashraf PA - 09/24/2022 10:31 AM EDT Inpatient Cardiac Electrophysiology Discharge Day Note Patient Name: Tim Mera Service: EP Responsible Attending: Dylan Story MD Reason for continued hospitalization: POD#1 pacemaker pulse generator and lead replacement Active Problems: Active Hospital Problems Diagnosis Complete heart block Pacemaker - dual lead [employer] pacemaker Resolved Hospital Problems No resolved problems to display. Interval History: 71 y.o. male with a history of complete heart block s/p dual chamber permanent pacemaker April 2017 at [facility] course complicated by both pericardial effusion [...] RV pacing leads were implanted. A new [employer] pacemaker pulse generator was also implanted. [...] Oral Daily loratadine 10 mg Oral Daily tbnbfy-buybgjkq-hbozcir DR 1 capsule Oral TID magnesium oxide [...] 0.00 - 0.04 x10(3)/mcL Pertinent Radiographic/Diagnostic Results: Court Messenger Model # Serial # Generator (New) [employer] Sci [id number] [id number] Atrial Lead (New) Putney [employer]Guide 7841 [id number] RV Lead [employer] Sci 7742 [id number] Old RA lead capped and abandoned Old RV lead found to have insulation deterioration and this lead was also capped and abandoned New RA and RV leads placed [employer] pulse generator implanted DDD @ 60/120 P wave: 2.2mV R wave: none above 30 Atrial impedance: 581 ohms RV impedance:777 ohms RA threshold: 0.7V @0.4ms RV threshold: 0.4V @ 0.4ms AP 38%; HYDROMETER TESTER 100% No events Estimated battery longevity >8 years CXR: 09/24/2022 Left sided dual lead pacemaker 4 leads; two abandoned No pneumothorax +small bilateral pleural effusions Assessment: Tim Mera is a 71 y.o. male withhx of complete heart block, s/p dual lead [id number] at [facility], now with cell depletion, fractured atrial lead and unexpected insulation deteriorationof RV lead resulting placement of new RA and RV pacing leads along with a new pulse generator. Device function is excellent today. Plan: NEW - replaced [employer] dual lead pacemaker with new atrial and ventricular pacing leads. Old leads capped and abandoned. Stable for discharge to home Needs non-emergent ambulance for transport back to [facility] in [place], [place]. Outpatient follow up scheduled at [facility] for 10 post implant check. Provider: GIRISH Marin EP Procedural attending physician: Adiel Story MD EP Consult positional pager #[phone](EPMD) EP Device interrogation positional pager # [phone] * Rosie Ashraf RN - 09/23/2022 5:37 [...] chamber permanent pacemaker April 2017 at [facility] course complicated by both pericardial effusion [...] Chest Tube/Pleural Drain 07/10/2021 Vick Boss MD [facility] RAD CT SCAN CT PERITONEAL DRAINAGE 07/10/2021 CT Guided Drain Peritoneal 07/10/2021 Vick Boss MD [facility] RAD CT SCAN LAB VALUES: Laboratory Data: Lab Results Component Value Date WBC 9.4 09/23/2022 HGB 13.1 (L) 09/23/2022 HCT 39.5 (L) 09/23/2022 MCV 104.8 (H) 09/23/2022 ASSESSMENT AND PLAN: Tim Mera is a 71 y.o. male with a history of complete heart block s/p dual chamber permanent pacemaker April 2017 at [facility] course complicated by both pericardial effusion [...] completed. Vini Lucero MD Cardiac Electrophysiology Fellow [facility] Pager [phone] 09/23/2022 I met with the patient today [...] in agreement. Dr. Dylan Story, electrophysiology attending ([id number]) documented in this encounter Miscellaneous Notes * Care Management Discharge - Tim Casillas RN - 09/24/2022 11:30 AM EDT CARE MANAGEMENT FINAL DISCHARGE NOTE Chart reviewed, care reviewed with primary team and at interdisciplinary rounds. Patient is medically ready for discharge to [facility]. Needs for Transition of Care: Plan for discharge is: Custodial Facility / Swing Outpatient Agency/Support Group Needs: None Agency Referrals & Follow-up Care: Contact information for follow-up [facility] [address] [place] [address] Transportation: ambulance Ambulance Finance Conversation Completed: 09/24/2022 Spoke to: Radha Chand VAT WASHER at accepting facility Verbalized Understanding: Yes Functional [...] Operative Note Patient Name: Tim Mera : [id number] MR#: [id number] Case Date: 09/23/2022 Surgeon: Surgeon(s) and Role: [...] AM EST Hospital Encounter [place] [address] Arrived Scheduled Orders Name Type Priority Associated [...] who have questions please contact the health acute care registered nurse that requested your imaging first. ? Electronically signed by: Denilson Puentes MD, [facility] ([phone]), at 09/24/2022 8:47 AM Narrative 09/24/2022 8:47 [...] patients who have questions please contactthe health acute care registered nurse that requested your imaging first. Electronically signed by: Denilson Puentes MD, [facility]([phone]), at 09/24/2022 8:47 AM Dylan Story MD IMG DX ORDERABLES * EKG 12 Lead (09/23/2022 5:18 PM EDT) Ventricular rate 74 BPM MUSE SYSTEM Atrial Rate 74 BPM MUSE SYSTEM P-R Interval 168 ms MUSE SYSTEM QRS Duration 164 ms MUSE SYSTEM Q-T Interval 458 ms MUSE SYSTEM QTC Calculated (Bezet) 508 ms MUSE SYSTEM Calculated P [place] 13 degrees MUSE SYSTEM Calculated R [place] -72 degrees MUSE SYSTEM Calculated T [place] 91 degrees MUSE SYSTEM INTERPRETATION Atrial-sense d ventricular- paced rhythm Abnormal ECG No previous ECGs available Confirmed by Bro Dasilva ([id number]) on 09/24/2022 9:15:33 AM MUSE SYSTEM 09/23/2022 [...] PATIENT NAME: Tim Mera PATIENT : 1950 [facility] ADMINISTRATOR: Dylan Story MD FELLOW: Vini Lucero MD REFERRING PROVIDER: GIRISH Rai PROCEDURE DATE: 09/23/2022 PATIENT HISTORY: Mr. Mera is a 71 year old man with a history of complete heart block status post dual chamber [employer] pacemaker in 2018 with course complicated [...] the entire procedure. LEAD AND GENERATOR DATA: Court Messenger Model # Serial # Generator (New) [employer] [id number] [id number] Atrial Lead (New) [employer] OVGuide 7841 [id number] RV Lead (new) [employer] OVGuide 7842 [id number] REMOVED GENERATOR AND CAPPED ATRIAL LEAD: Court Messenger Model # Serial # Generator (Explanted) [employer] L111 902362 Atrial Lead (Capped) [employer] 3830 [id number] ?? Ventricular lead (capped) [employer] 7742 [id number] PACE/SENSE DATA: Sensed wave (mV) Threshold (V) [...] with new A and V leads (cpt 11173) Dylan Story MD S Cardiac Electrophysiology 09/24/2022 1:57 PM Procedure Note Dylan Story MD - 09/27/2022 Images from the original note were not included. PACEMAKER GENERATOR CHANGE AND REVISION OF RA AND RV LEADS PATIENT NAME: Tim Mera PATIENT : 1950 [facility] ADMINISTRATOR: Dylan Story MD FELLOW: Vini Lucero MD REFERRING PROVIDER: GIRISH Rai PROCEDURE DATE: 09/23/2022 PATIENT HISTORY: Mr. Mera is a 71 year old man with a history of complete heart blockstatus post dual chamber [employer] pacemaker in 2018 with coursecomplicated by [...] the entire procedure. LEAD AND GENERATOR DATA: Court Messenger Model # Serial # Generator (New) [employer] L311 [id number] Atrial Lead (New) [employer] OVGuide 7841 0486941 RV Lead (new) [employer] OVGuide 7842 [id number] REMOVED GENERATOR AND CAPPED ATRIAL LEAD: Court Messenger Model # Serial # Generator (Explanted) [employer] L111 218704 Atrial Lead (Capped) [employer] 3830 [id number] Ventricular lead (capped) [employer] 7742 [id number] PACE/SENSE DATA: Sensed wave (mV) Threshold (V) [...] pacemaker with new A and V leads(cpt 67372) Dylan Story MD [facility] Cardiac Electrophysiology 09/24/2022 1:57 PM Dylan Story MD EP PROCEDURE ORDERAB LES * (ABNORMAL) Differential, Automated (09/23/2022 12:05 PM EDT) Neutrophil % 62.1 % [facility] Neutrophil Absolute 5.82 1.70 - 6.10 x10(3)/mc L [facility] Lymph % 22.3 % [facility] Lymphocytes Abs 2.1 0.9 - 3.2 x10(3)/mc L [facility] Monocyte % 11.8 % [facility] Monocyte Abs 1.1(H) 0.3 - 0.9 x10(3)/mc L [facility] Eos % 2.1 % [facility] Eosinophils Abs 0.2 0.0 - 0.4 x10(3)/mc L [facility] Basophil % 1.1 % [facility] Baso Absolute 0.1 0.0 - 0.1 x10(3)/mc L [facility] Immature Gran % 0.60 % [facility] Comment: Immature granulocytes(IG's)percentage and absolute count will include metamyelocytes, myelocytes, and promyelocytes. Blood smears from CBCs yielding IG's will be scanned manually for concordance. If this scan disagrees with the automated IG or if promyelocytes are noted, a manual differential will be performed. Immature Gran Absolute 0.06(H) 0.00 - 0.04 x10(3)/mc L [facility] Blood 09/23/2022 12:0 5 PM EDT 09/23/2022 12:25 PM EDT Narrative Resulting Agency Comment Spec In Lab Dylan Story MD HEMATOLOGY ORDERABLE S [facility] [place] [address] * (ABNORMAL) Hemogram (09/23/2022 12:05 PM EDT) White Blood Cell 9.4 4.0 - 9.5 x10(3)/mc L [facility] Red Blood Cell 3.77(L) 4.58 - 5.54 x10(6)/mc L [facility] Hemoglobin 13.1(L) 13.7 - 16.5 g/dL [facility] Hematocrit 39.5(L) 40.5 - 48.5 % [facility] Mean Cell Volume 104.8(H) 82.9 - 93.1 fL [facility] Mean Cell Hemoglobin 34.7(H) 27.5 - 32.1 pg [facility] Mean Cell Hemoglobin Concentration 33.2 32.0 - 35.7 g/dL [facility] Platelet 276 145 - 357 x10(3)/mc L [facility] RDW Standard Deviation 47.7(H) 36.0 - 45.0 fL [facility] RDW coefficient of variation 12.3 11.4 - 13.8 % [facility] Mean Platelet Volume 10.4 7.6 - 12.9 fL [facility] NRBC% auto 0.0 % [facility] NRBC Absolute 0.000 0.000 - 0.000 x10(3)/mc L [facility] Blood 09/23/2022 12:0 5 PM EDT 09/23/2022 12:25 PM EDT Narrative Resulting Agency Comment Spec In Lab Dylan Story MD HEMATOLOGY ORDERABLE S Performing Organization Address City/[facility]/ZIP Co de Phone Number [facility] [place] [address] * (ABNORMAL) Basic Metabolic Panel (non-fasting) (09/23/2022 12:05 PM EDT) Glucose 106 65 - 199 mg/dL [facility] Comment:Diabetes: >=200 mg/d L plus symptoms Blood Urea Nitrogen 8(L) 10 - 20 mg/dL [facility] Creatinine 0.58(L) 0.80 - 1.50 mg/dL [facility] Sodium 130(L) 135 - 145 mmol/L [facility] Potassium 5.0 3.5 - 5.0 mmol/L [facility] Comment: Please note: ??Patients with WBC >100,000 may have falsely elevated Potassium levels. ??For accurate Potassium quantification in these patients send serum separator tube (gold top) for subsequent determinations. ??Contact the Clinical Chemistry Laboratory if there are any questions. Chloride 95(L) 98 - 107 mmol/L [facility] Carbon Dioxide 25 22 - 31 mmol/L [facility] Anion Gap 10 5 - 15 mmol/L [facility] Calcium 9.3 8.5 - 10.5 mg/dL [facility] Est Glomerular Filtration Rate 104 >=60 mL/min/1. 73 m?? [facility] Comment: This patient's estimated GFR [...] In Lab Dylan Story MD CHEMISTRY ORDERABLES [facility] [place] [address] documented in this encounter Visit Diagnoses Diagnosis [...] Given 09/23/2022 2:11 PM EDT 400 mg emftdu-unzbnjwq-tgcsort DR (Creon 24) 24,000-76,000 -120,000 unit per [...] 1411 (Given - Provider: Vini Lucero MD) guclgh-myrnyffw-gaeegnj DR (Creon 24) 24,000-76,000 -120,000 unit per [...] OPEN, Routine 0839 (Given - Provid er: Menyd Briscoe RN) pantoprazole EC (Protonix) tablet 40 [...] Routine documented in this encounter Care Teams Dancing Instructor Relationship Specialty Start Date End Date Katia Stone PA [address] [place] [address] PCP - General General Internal Medicine 11/10/18 documented as of this encounter
--- OUTSIDE RECORDS SUMMARY | 2023-12-23 09:38 | XMS_ITS | Encounter Summary ---
Author Organization [facility] Address [facility] [place] [address] Care Team Providers Care Forest Economics Professor Name Role Phone Katia Stone Primary Care Provider [phone] Encounter Details Date Type Department Care Team (Late st Contact Info) Description 04/04/2022 Notes Only Cardiology at [address] [id number] Humberto Ashraf PA [facility] [place] [address] Social History Tobacco Use Types Packs/Day Years [...] pacing threshold; afib/flutter Transmission Date: 03/28/2022 Device Oil Lease Broker and Type: [employer] L111 Battery Status: estimated longevity 6 months Atrial lead status: normal sensing and impedance; elevated pacing threshold(now 4.0V @ 0.4ms); known partial fx Right ventricular lead status: good Left ventricular lead status: n/a Pacin % Atrial pacing 100 % Ventricular pacing Events/Arrhythmias noted since last reset: New acutely elevated RA pacing threshold Impression: 71yo man with dual lead [employer] 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 He is followed at [facility] and has reported known atrial lead dysfunction as assessed by Dr. Story. Now as he approaches [facility], he should be evaluated for lead replacement, +/-extraction of the fractured lead. I will request follow up to be scheduled. GIRISH Marin, MPAS, DFAAPA documented in this encounter Plan of Treatment Upcoming Encounters Date Type Department Care Team (Late st Contact Info) Description 02/04/2024 10:00 AM EST Hospital Encounter Non-[place] [address] Arrived documented as of this encounter Visit Diagnoses Not on filedocumented in this encounter Care Teams Forest Economics Professor Relationship Specialty Start Date End Date Katia Stone PA [address] [facility] [place] [address] PCP - General General Internal Medicine 11/10/18 documented as of this encounter
--- OUTSIDE RECORDS SUMMARY | 2023-12-23 09:38 | XMS_ITS | Encounter Summary ---
[facility] Organization [facility] [place] [address] Care Team Providers Care Oilfield Plant And Field Operator Name Role Phone Katia Stone Primary Care Provider Encounter Details Date Type Department Care Team (Latest Contact Info) Description 05/15/2022 10:00 AM EDT - 05/15/2022 11:59 PM EDT Hospital Encounter [place] [address] Discharge Disposition: Home Social History Tobacco Use [...] AM EST Hospital Encounter [place] [phone] Arrived documented as of this encounter Procedures [...] on filedocumented in this encounter Care Teams Oilfield Plant And Field Operator Relationship Specialty Start Date End Date Katia Stone PA [address] [place] [phone] PCP - General General Internal Medicine 11/10/18 documented as of this encounter
--- OUTSIDE RECORDS SUMMARY | 2023-12-23 09:38 | XMS_ITS | Encounter Summary ---
Author Organization [facility] Address [facility] [place] [address] Care Team Providers Care Land Surveyor Manager Name Role Phone Katia Stone Primary Care Provider [phone] Reason for Visit * Auth/Cert (Routine) Specialty [...] OR PM) (WRVU 4.92) Dylan Story MD [facility] [place] [address] [facility] Referral ID Status Reason Start Date Expiration Date Visits Re quested Visits Authorized [id number] 1 1 Encounter Details Date Type Department Care Team (Latest Contact Info) Description 09/23/2022 11:49 AM EDT - 09/24/2022 1:21 PM EDT Hospital Encounter Heart and Vascular Unit Level 4 [place] [phone] Dylan Story MD [facility] [place] [address] Pacemaker at end of battery life; Pacemaker [...] in this encounter Discharge Summaries * Dylan Stoyr MD - 09/24/2022 1:21 PM EDT Discharge Summary Patient Name: Tim Mera Patient Age: 71 y.o. Language: Maltese Race: White Ethnicity: Not nor Admit date: 09/23/2022 Discharge date and time: 09/24/2022 1315 Attending Physician: Dylan Story MD Discharge Physician: Dylan Story MD Follow-up Recommendations for Providers: NEW - replaced [employer] dual lead pacemaker with new atrial and ventricular pacing leads. Old leads capped and abandoned. Stable for discharge to home Needs non-emergent ambulance for transport back to [facility] in [place], [place]. Outpatient follow up scheduled at [facility] for 10 post implant check. Inpatient Provider Contact Information: Cardiac Electrophysiology [phone], option #3 Discharge Diagnoses (Hospital Problems) and Secondary Diagnoses (Chronic Problems): Active Hospital Problems Diagnosis Complete heart block Pacemaker - dual lead [employer] pacemaker Resolved Hospital Problems No resolved [...] RV pacing leads were implanted. A new [employer] pacemaker pulse generator was also implanted. [...] 106 (L): Data is abnormally low Treatments: Outsole Compressor Model # Serial # Generator (New) Cumberland Solfo [id number] [id number] Atrial Lead (New) [employer] Sci 7841 [id number] RV Lead [employer] 7742 704322 Old RA lead capped and abandoned Old RV lead found to have insulation deterioration and this lead was also capped and abandoned New RA and RV leads placed BristolEpiBone pulse generator implanted DDD @ 60/120 Discharge [...] by mouth 3 times daily. Generic drug: qysgar-fmfyekid-zclofdq DR 1 capsule Refills: 0 fentaNYL 12 [...] incision. Make sure to use a cloth examiner (such as a towel) in [...] F. The office scheduling phone number is [phone]. ARM MOVEMENT RESTRICTIONS POST-IMPLANT - Do not [...] please call the Cardiac ElectrophysiologyTriage Nurse at [phone], option 3. General Instructions Future Appointments and Orders Future Appointments and Orders Future Appointments Provider Department Dept Phone 10/04/2022 11:00 AM Maite Lozano RN Cardiology at [facility] Arrive at: [place] [phone] 12/27/2022 11:00 AM Maite Lozano RN Cardiology at [facility] Arrive at: [place] [phone] Discharge References/Attachments None Dylan Story MD [facility] [...] incision. Make sure to use a cloth examiner (such as a towel) in [...] F. The office scheduling phone number is [phone]. ARM MOVEMENT RESTRICTIONS POST-IMPLANT - Do not [...] please call the Cardiac ElectrophysiologyTriage Nurse at [phone], option 3. documented in this encounter Medications [...] General Information Tim Mera 1950 Medicare Number: [id number] Transport Date: 09/24/22 (PCS is valid for round trips on this date and for all repetitive trips in the 60-day range as noted below.) Origin: [place] [address] Destination: [facility] [address] [place] [address] Is the patient's stay covered [...] means is contraindicated by the patient's condition: chief medical physicist required. Patient unable to tolerate seated position [...] wheelchair van (i.e. seated during transport, without chief medical physicist or monitoring?): No 4) In addition to complete questions 1-3 above, please select any of the following conditions that apply: *Note: supporting documentation for any boxes checked must be maintained in the patient's medical records Moderate/severe pain on movement coffee break attendant required Section III - Signature of [...] 09/24/2022 10:54 AM EDT Office of Care Management/Receiving Weigher Patient Name: Tim Mera : 1950 Patient is returning to a SNF bed at [facility]. [facility] arranged for a 1300hrs transport. Ambulance will need: Medicare ambulance form completed and signed (MD or Senior Project Manager Engineering RN/SHIPPING CHECKER) Copy of patient demographics [place] Out of Hospital DNR/DNI order, if active No MD to MD report necessary. Please call Nursing Report to , ask for child care group leader. Info to accompany patient: Copies of Medication Administration Records and IV sheets for past 10 days. Plan: Receiving Weigher will be available to the patient and Senior Project Manager Engineering-RN and/or Social Workerfor further assistance. Patient will be discharged to: [facility] [address] [place] [id number] Holly Urbina * Humberto Ashraf PA - 09/24/2022 10:31 AM EDT Inpatient Cardiac Electrophysiology Discharge Day Note Patient Name: Tim Mera Service: EP Responsible Attending: Dylan Story MD Reason for continued hospitalization: POD#1 pacemaker pulse generator and lead replacement Active Problems: Active Hospital Problems Diagnosis Complete heart block Pacemaker - dual lead [employer] pacemaker Resolved Hospital Problems No resolved [...] RV pacing leads were implanted. A new [employer] pacemaker pulse generator was also implanted. [...] Oral Daily loratadine 10 mg Oral Daily abaghi-okyduyqq-unpglji DR 1 capsule Oral TID magnesium oxide [...] 0.00 - 0.04 x10(3)/mcL Pertinent Radiographic/Diagnostic Results: Outsole Compressor Model # Serial # Generator (New) [employer] L311 110607 Atrial Lead (New) [employer] 7841 4314889 RV Lead [employer] 7742 685941 Old RA lead capped and abandoned Old RV lead found to have insulation deterioration and this lead was also capped and abandoned New RA and RV leads placed [employer] pulse generator implanted DDD @ 60/120 P wave: 2.2mV R wave: none above 30 Atrial impedance: 581 ohms RV impedance:777 ohms RA threshold: 0.7V @0.4ms RV threshold: 0.4V @ 0.4ms AP 38%; BOILER HOUSE OPERATOR 100% No events Estimated battery longevity >8 years CXR: 09/24/2022 Left sided dual lead pacemaker 4 leads; two abandoned No pneumothorax +small bilateral pleural effusions Assessment: Tim Mera is a 71 y.o. male withhx of complete heart block, s/p dual lead [id number] at [facility], now with cell depletion, fractured atrial lead and unexpected insulation deteriorationof RV lead resulting placement of new RA and RV pacing leads along with a new pulse generator. Device function is excellent today. Plan: NEW - replaced [employer] dual lead pacemaker with new atrial and ventricular pacing leads. Old leads capped and abandoned. Stable for discharge to home Needs non-emergent ambulance for transport back to [facility] in [place], [place]. Outpatient follow up scheduled at [facility] for 10 post implant check. Provider: GIRISH Marin EP Procedural attending physician: Adiel Story MD EP Consult positional pager #[phone](EPMD) EP Device interrogation positional pager # [phone] * Rosie Ashraf RN - 09/23/2022 5:37 [...] Drain 07/10/2021 Vick Boss MD [facility] RAD CT SCAN CT PERITONEAL DRAINAGE 07/10/2021 CT Guided Drain Peritoneal 07/10/2021 Vick Boss MD [facility] RAD CT SCAN LAB VALUES: Laboratory [...] completed. Vini Lucero MD Cardiac Electrophysiology Fellow [facility] Pager [phone] 09/23/2022 I met with the patient today [...] in agreement. Dr. Dylan Story, electrophysiology attending ([id number]) documented in this encounter Miscellaneous Notes * Care Management Discharge - Tim Casillas RN - 09/24/2022 11:30 AM EDT CARE MANAGEMENT FINAL DISCHARGE NOTE Chart reviewed, care reviewed with primary team and at interdisciplinary rounds. Patient is medically ready for discharge to [facility]. Needs for Transition of Care: Plan for discharge is: Nursing Home Facility / Swing Outpatient Agency/Support Group Needs: None Agency Referrals & Follow-up Care: Contact information for follow-up [facility] [address] [place] [address] Transportation: ambulance Ambulance Finance Conversation Completed: 09/24/2022 Spoke to: Radha Chand PRINTED CIRCUIT BOARDS PLASMA ETCHER at accepting facility Verbalized Understanding: Yes Functional [...] Operative Note Patient Name: Tim Mera : [id number] MR#: [id number] Case Date: 09/23/2022 Surgeon: Surgeon(s) and Role: [...] AM EST Hospital Encounter [place] [address] Arrived Scheduled Orders Name Type [...] who have questions please contact the health rn progressive care that requested your imaging first. ? Electronically signed by: Denilson Puentes MD, [facility] ([phone]), at 09/24/2022 8:47 AM Narrative 09/24/2022 8:47 [...] patients who have questions please contactthe health rn progressive care that requested your imaging first. Electronically signed by: Denilson Puentes MD, [facility]([phone]), at 09/24/2022 8:47 AM Dylan Story MD IMG DX ORDERABLES * EKG 12 Lead (09/23/2022 5:18 PM EDT) Ventricular rate 74 BPM MUSE SYSTEM Atrial Rate 74 BPM MUSE SYSTEM P-R Interval 168 ms MUSE SYSTEM QRS Duration 164 ms MUSE SYSTEM Q-T Interval 458 ms MUSE SYSTEM QTC Calculated (Bezet) 508 ms MUSE SYSTEM Calculated P [place] 13 degrees MUSE SYSTEM Calculated R [place] -72 degrees MUSE SYSTEM Calculated T [place] 91 degrees MUSE SYSTEM INTERPRETATION Atrial-sense d ventricular- paced rhythm Abnormal ECG No previous ECGs available Confirmed by Bro Dasilva ([id number]) on 09/24/2022 9:15:33 AM MUSE SYSTEM 09/23/2022 [...] PATIENT NAME: Tim Mera PATIENT : 1950 DUST BRUSH ASSEMBLER: Dylan Story MD FELLOW: Vini Lucero MD REFERRING PROVIDER: GIRISH Rai PROCEDURE DATE: 09/23/2022 PATIENT HISTORY: Mr. Mera is a 71 year old man with a history of complete heart block status post dual chamber [employer] pacemaker in 2018 with course complicated [...] the entire procedure. LEAD AND GENERATOR DATA: Outsole Compressor Model # Serial # Generator (New) [employer] L311 [id number] Atrial Lead (New) [employer] 7841 7024623 RV Lead (new) [employer] 7842 6052181 REMOVED GENERATOR AND CAPPED ATRIAL LEAD: Outsole Compressor Model # Serial # Generator (Explanted) [employer] L111 349039 Atrial Lead (Capped) Pathogenetixtronic 3830 [id number] ?? Ventricular lead (capped) Epi[employer]one 7742 733431 PACE/SENSE DATA: Sensed wave (mV) Threshold (V) [...] with new A and V leads (cpt 98267) Dylan Sotry MD S Cardiac Electrophysiology 09/24/2022 1:57 PM Procedure Note Dylan Story MD - 09/27/2022 Images from the original note were not included. PACEMAKER GENERATOR CHANGE AND REVISION OF RA AND RV LEADS PATIENT NAME: Tim Mera PATIENT : 1950 DUST BRUSH ASSEMBLER: Dylan Story MD FELLOW: Vini Lucero MD REFERRING PROVIDER: GIRISH Rai PROCEDURE DATE: 09/23/2022 PATIENT HISTORY: Mr. Mera is a 71 year old man with a history of complete heart blockstatus post dual chamber [employer] pacemaker in 2018 with coursecomplicated by [...] the entire procedure. LEAD AND GENERATOR DATA: Outsole Compressor Model # Serial # Generator (New) [employer] L311 209793 Atrial Lead (New) [employer] 7841 5369496 RV Lead (new) [employer] 7842 6280800 REMOVED GENERATOR AND CAPPED ATRIAL LEAD: Outsole Compressor Model # Serial # Generator (Explanted) [employer] L111 603640 Atrial Lead (Capped) Med[employer]onic 3830 [id number] Ventricular lead (capped) EpiBone 7742 826666 PACE/SENSE DATA: Sensed wave (mV) Threshold (V) [...] pacemaker with new A and V leads(cpt 21984) Dylan Story MD S Cardiac Electrophysiology 09/24/2022 1:57 PM Dylan Story MD EP PROCEDURE ORDERAB LES * (ABNORMAL) Differential, Automated (09/23/2022 12:05 PM EDT) Neutrophil % 62.1 % [facility] Neutrophil Absolute 5.82 1.70 - 6.10 x10(3)/mc L [facility] Lymph % 22.3 % [facility] Lymphocytes Abs 2.1 0.9 - 3.2 x10(3)/mc L [facility] Monocyte % 11.8 % [facility] Monocyte Abs 1.1(H) 0.3 - 0.9 x10(3)/mc L [facility] Eos % 2.1 % [facility] Eosinophils Abs 0.2 0.0 - 0.4 x10(3)/mc L [facility] Basophil % 1.1 % [facility] Baso Absolute 0.1 0.0 - 0.1 x10(3)/mc L [facility] Immature Gran % 0.60 % [facility] Comment: Immature granulocytes(IG's)percentage and absolute count will include metamyelocytes, myelocytes, and promyelocytes. Blood smears from CBCs yielding IG's will be scanned manually for concordance. If this scan disagrees with the automated IG or if promyelocytes are noted, a manual differential will be performed. Immature Gran Absolute 0.06(H) 0.00 - 0.04 x10(3)/mc L [facility] Blood 09/23/2022 12:0 5 PM EDT 09/23/2022 12:25 PM EDT Narrative Resulting Agency Comment Spec In Lab Dylan Story MD HEMATOLOGY ORDERABLE S Performing Organization Address City/[facility]/ZIP Co de Phone Number [facility] [place] [address] * (ABNORMAL) Hemogram (09/23/2022 12:05 PM EDT) White Blood Cell 9.4 4.0 - 9.5 x10(3)/[facility] Red Blood Cell 3.77(L) 4.58 - 5.54 x10(6)/[facility] Hemoglobin 13.1(L) 13.7 - 16.5 g/dL [facility] Hematocrit 39.5(L) 40.5 - 48.5 % [facility] Mean Cell Volume 104.8(H) 82.9 - 93.1 fL [facility] Mean Cell Hemoglobin 34.7(H) 27.5 - 32.1 pg [facility] Mean Cell Hemoglobin Concentration 33.2 32.0 - 35.7 g/dL [facility] Platelet 276 145 - 357 x10(3)/ L [facility] RDW Standard Deviation 47.7(H) 36.0 - 45.0 fL [facility] RDW coefficient of variation 12.3 11.4 - 13.8 % [facility] Mean Platelet Volume 10.4 7.6 - 12.9 fL [facility] NRBC% auto 0.0 % [facility] NRBC Absolute 0.000 0.000 - 0.000 x10(3)/mc L [facility] Blood 09/23/2022 12:0 5 PM EDT 09/23/2022 12:25 PM EDT Narrative Resulting Agency Comment Spec In Lab Dylan Story MD HEMATOLOGY ORDERABLE S Performing Organization Address City/[facility]/ZIP Co de Phone Number [facility] [place] [address] * (ABNORMAL) Basic Metabolic Panel (non-fasting) (09/23/2022 12:05 PM EDT) Glucose 106 65 - 199 mg/dL [facility] Comment:Diabetes: >=200 mg/d L plus symptoms Blood Urea Nitrogen 8(L) 10 - 20 mg/dL [facility] Creatinine 0.58(L) 0.80 - 1.50 mg/dL [facility] Sodium 130(L) 135 - 145 mmol/L [facility] Potassium 5.0 3.5 - 5.0 mmol/L [facility] Comment: Please note: ??Patients with WBC >100,000 may have falsely elevated Potassium levels. ??For accurate Potassium quantification in these patients send serum separator tube (gold top) for subsequent determinations. ??Contact the Clinical Chemistry Laboratory if there are any questions. Chloride 95(L) 98 - 107 mmol/L [facility] Carbon Dioxide 25 22 - 31 mmol/L [facility] Anion Gap 10 5 - 15 mmol/L [facility] Calcium 9.3 8.5 - 10.5 mg/dL [facility] Est Glomerular Filtration Rate 104 >=60 mL/min/1. 73 m?? [facility] Comment: This patient's estimated GFR [...] In Lab Dylan Story MD CHEMISTRY ORDERABLES [facility] [place] [address] documented in this encounter Visit Diagnoses Diagnosis Complete heart block- Primary Atrioventricular block, complete Pacemaker at end of battery life Fitting and adjustment of cardiac pacemaker Pacemaker battery depletion Fitting and adjustment of cardiac pacemaker AV block Atrioventricular block, unspecified Complete heart block Atrioventricular block, complete Pacemaker - dual lead [employer] pacemaker Cardiac pacemaker in situ Pacemaker [...] Given 09/23/2022 2:11 PM EDT 400 mg slrnyt-jxnscdla-occztwz DR (Creon 24) 24,000-76,000 -120,000 unit per [...] 1411 (Given - Provider: Vini Lucero MD) tjptha-qlkulmvk-lmntxca DR (Creon 24) 24,000-76,000 -120,000 unit per [...] Routine documented in this encounter Care Teams Land Surveyor Manager Relationship Specialty Start Date End Date Katia Stone PA [address] [place] [phone] PCP - General General Internal Medicine 11/10/18 documented as of this encounter
--- OUTSIDE RECORDS SUMMARY | 2023-12-23 09:38 | XMS_ITS | Encounter Summary ---
Author Organization [facility] [place] [address] Care Team Providers Care Office Manager Name Role Phone Katia Stone Primary Care Provider [phone] Encounter Details Date Type Department Care Team (Late st Contact Info) Description 02/13/2022 Orders Only Cardiology at [address] [phone] Dylan Story MD [facility] [place] [address] Social History Tobacco Use Types Packs/Day Years [...] AM EST Hospital Encounter Non-[place] [address] Arrived documented as of this encounter Procedures [...] filedocumented in this encounter Care Teams Office Manager Relationship Specialty Start Date End Date Katia Stone PA [address] [facility] [place] [address] PCP - General General Internal Medicine 11/10/18 documented as of this encounter
--- OUTSIDE RECORDS SUMMARY | 2023-12-23 09:38 | XMS_ITS | Encounter Summary ---
Author Organization [facility] [place] [address] Care Team Providers Care Swine Extension Field Specialist Name Role Phone Katia Stone Primary Care Provider [phone] Reason for Visit * Reason Onset Date Comments Pre Procedure Call 09/11/2022 Encounter Details Date Type Department Care Team (Late st Contact Info) Description 09/11/2022 Telephone Cardiology at [address] [phone] Patsy Gaffney, RN Pre Procedure Call Social [...] Generator Replacement + Atrial Lead Replacement EP BRAIDED BAND ASSEMBLER COORDINATION CHECKLIST Patient Name: Tim Mera [facility]ructions also to be faxed) Patient Performing Funeral Attendant: Dylan Story Referring Provider: Humberto Ashraf Date of Procedure: 09/23/22 Arrival Time/ Case Time: 12:00 pm / 1:00 pm Check In Location: Health Informatics Specialist Desk 4W Date Patient was Called: 09/11/22 Procedure: Generator Replacement + New Atrial Lead Placement Company: [email or web address] Type: DC PCM Orders: Yes Lab Orders: [...] Other Instructions: Clear liquids (water, apple juice, jmaes rekha) OK up until 2 hrs prior to procedure, nothing to eatafter midnight on day of procedure.Same Day will call 09/20. If applicable will bring CPAP from home. Will be staying overnight , understands that they will need local hazmat driver on day of discharge Notified pt that Webber catheter may be placed on day of procedure depending on type & duration of case. documented in this encounter Plan of Treatment Upcoming Encounters Date Type Department Care Team (Late st Contact Info) Description 02/04/2024 10:00 AM [facility] Hospital Encounter Non[place] [address] Arrived documented as of this encounter Visit Diagnoses Not on filedocumented in this encounter Care Teams Swine Extension Field Specialist Relationship Specialty Start Date End Date Katia Stone PA [address] [place] [phone] PCP - General General Internal Medicine 11/10/18 documented as of this encounter
--- OUTSIDE RECORDS SUMMARY | 2023-12-23 09:38 | XMS_ITS | Encounter Summary ---
Author Organization [facility] Address [facility] [place] [address] Care Team Providers Care Truck Driving Instructor Name Role Phone Katia Stone Primary Care Provider Encounter Details Date Type Department Care Team (Latest Contact Info) Description 08/14/2021 - 08/14/2021 11:59 PM EDT Hospital Encounter Non-Invasive [place] [phone] Dylan Story MD [facility] ELECTROP[place] [address] CHB (complete heart block) Discharge Disposition: Home [...] AM EST Hospital Encounter Non-Invasive [place] [phone] Arrived documented as of this encounter Procedures [...] complete documented in this encounter Care Teams Truck Driving Instructor Relationship Specialty Start Date End Date Katia Stone PA [address] [facility] [place] [address] PCP - General General Internal Medicine 11/10/18 documented as of this encounter
--- OUTSIDE RECORDS SUMMARY | 2023-12-23 09:38 | XMS_ITS | Encounter Summary ---
Author Organization Formerly [facility] [place] [address] Care Team Providers Care Fermenting Cellars Supervisor Name Role Phone Katia Stone Primary Care Provider Reason for Referral * Diagnostic Test (Routine) - Closed Specialty Diagnoses / Procedures Referred By Contac t Referred To Contact Radiology Diagnoses Abdominal visceral abscess Procedures CT Guided Drain Peritoneal Virginia Price [address] [place] [address] [facility] [place] [address] Referral ID Status Reason Start Date Expiration Date V isits Requested Visits Authorized [id number] Closed Specialty Service Requested 07/09/2021 01/09/2023 1 1 Reason for Visit * Diagnostic Test (Routine) - Closed Specialty Diagnoses / Procedures Referred By Contac t Referred To Contact Radiology Diagnoses Abdominal visceral abscess Procedures CT Guided Drain Peritoneal Virginia Price [address] [place] [address] [facility] [place] [address] Referral ID Status Reason Start Date Expiration Date V isits Requested Visits Authorized [id number] Closed Specialty Service Requested 07/09/2021 01/09/2023 1 1 Encounter Details Date Type Department Care Team (Latest Contact Info) Description 07/10/2021 9:19 AM EDT - 07/10/2021 11:59 PM EDT Hospital Encounter [place] [address] Virginia Price, DO [address] [place] [address] Abdominal visceral abscess (Primary Dx) Discharge Disposition: [...] is during regular office hours, please call [phone]. If it is after regular office hours, or on weekends or holidays, please call [phone] and ask to speak to the Slate Picker precision machinist for Interventional Radiology. XX You have received [...] of : 1950 AGE: 70 y.o. Address: [place] [address] (home) Mobile: No relevant phone numbers on file. Referring Provider: Virginia Price REASON FOR VISIT: Order Questions Answers Where will study be performed? [facility] Radiology [120] Is the patient [...] Questions Answers Where will study be performed? [facility] Radiology [120] Is the patient [...] Questions Answers Where will study be performed? [facility] Radiology [120] Is the patient [...] No immediate Plan/Disposition: Return to [facility] GB fossa drain to bulb suction [...] AM EST Hospital Encounter [place] [phone] Arrived documented as of this encounter Procedures [...] EDT 1. ??Percutaneous placement of a 10 Mongolian drainage catheter into gallbladder fossa abscess/biloma, yielding 120 mL of cloudy brown fluid. 2. ??Left-sided 10 Mongolian chest tube placement, yielding 30 mL of cloudy brown. Plan: 1. ??To IR recovery then transfer back to [facility]. 2. ??Awaiting return call from requesting [...] who have questions please contact the health care worker that requested your imaging first. ? Narrative [...] IMPRESSION 1. Percutaneous placement of a 10 Mongolian drainage catheter intogallbladder fossa abscess/biloma, yielding 120 mL of cloudy brown fluid. 2. Left-sided 10 Mongolian chest tube placement, yielding 30 mL of cloudybrown. Plan: 1. To IR recovery then transfer back to [facility]. 2. Awaiting return call from requesting [...] patients who have questions please contactthe health care worker that requested your imaging first. Virginia Price DO IMG CT ORDERABLES * CT Guided Drain Chest Tube/Pleural Drain (07/10/2021 12:19 PM EDT) Anatomical Region Laterality Modality Computed Tomogra phy Impressions 07/11/2021 10:21 AM EDT 1. ??Percutaneous placement of a 10 Mongolian drainage catheter into gallbladder fossa abscess/biloma, yielding 120 mL of cloudy brown fluid. 2. ??Left-sided 10 Mongolian chest tube placement, yielding 30 mL of cloudy brown. Plan: 1. ??To IR recovery then transfer back to [facility]. 2. ??Awaiting return call from requesting [...] who have questions please contact the health care worker that requested your imaging first. ? Narrative [...] IMPRESSION 1. Percutaneous placement of a 10 Mongolian drainage catheter intogallbladder fossa abscess/biloma, yielding 120 mL of cloudy brown fluid. 2. Left-sided 10 Mongolian chest tube placement, yielding 30 mL of cloudybrown. Plan: 1. To recovery then transfer back to [facility]. 2. Awaiting return call from requesting [...] patients who have questions please contactthe health care worker that requested your imaging first. Virginia Price DO IMG CT ORDERABLES * Anaerobic Culture (07/10/2021 11:45 AM EDT) Anaerobic Culture No anaerobic organisms isolated [facility] Fluid 07/10/2021 11:4 5 AM EDT 07/10/2021 12:24 PM EDT Comment:Left chest tube plac ement. Narrative Resulting Agency Comment Spec In Lab Vick Boss MD MICROBIOLOGY - GEN ERAL ORDERABLES Performing Organization Address City/[facility]/ZIP Co de Phone Number [facility] [place] [address] * Body Fluid Culture, Aerobic (07/10/2021 11:45 AM EDT) Body Fluid Culture No growth [facility] Gram Stain Cytocentrifuge Gram Stain performed No Neutrophils seen. No microorganisms seen. [facility] Fluid 07/10/2021 11:4 5 AM EDT 07/10/2021 12:24 PM EDT Comment:Left chest tube plac ement. Narrative Resulting Agency Comment Spec In Lab Vick Boss MD MICROBIOLOGY - GEN ERAL ORDERABLES Performing Organization Address City/[facility]/ZIP Co de Phone Number [facility] [place] [address] * Anaerobic Culture (07/10/2021 11:20 AM EDT) Anaerobic Culture No anaerobic organisms isolated [facility] Abdominal Fluid 07/10/2021 1 1:20 AM EDT 07/10/2021 12:25 PM EDT Comment:70 y.o. male with le ukocytosis and collection on CT following cholecystectomy presenting to Interventional Radiology for drainage Narrative Resulting Agency Comment Spec In Lab Vick Boss MD MICROBIOLOGY - GEN ERAL ORDERABLES [facility] [place] [address] * (ABNORMAL) Body Fluid Culture, Aerobic (07/10/2021 11:20 AM EDT) Body Fluid Culture Few Escherichia coli(A) [facility] Gram Stain Cytocentrifuge Gram Stain performed Neutrophils seen Few Gram Negative Rods (A) [facility] Organism Escherichia coli(A) [facility] Abdominal Fluid 07/10/2021 1 1:20 [...] Boss MD MICROBIOLOGY - GEN ERAL ORDERABLES [facility] [place] [address] documented in this encounter Visit Diagnoses Diagnosis [...] mg documented in this encounter Care Teams Fermenting Cellars Supervisor Relationship Specialty Start Date End Date Katia Stone PA [address] [place] [phone] PCP - General General Internal Medicine 11/10/18 documented as of this encounter
--- OUTSIDE RECORDS SUMMARY | 2023-12-23 09:38 | XMS_ITS | Encounter Summary ---
Author Organization [facility] Address [facility] [place] [address] Care Team Providers Care Operations Intelligence Superintendent Name Role Phone Katia Stone Primary Care Provider Encounter Details Date Type Department Care Team (Latest Contact Info) Description 11/14/2021 - 11/14/2021 11:59 PM EDT Hospital Encounter Non-[place]vasive [place] [phone] Radha Hammond MD [facility] [place] [address] CHB (complete heart block) Discharge Disposition: Home [...] AM EST Hospital Encounter Non-Invasive [place] [phone] Arrived documented as of this encounter Procedures [...] pdf document Date of transmission: 11/14/21 Device perishable freight inspector: BSC Device type: DC PM Presenting rhythm: apvp AP 56% CATIA DESIGNER 100% - no LV functional assessment in [...] complete documented in this encounter Care Teams Operations Intelligence Superintendent Relationship Specialty Start Date End Date Katia Stone PA [address] [place] [phone] PCP - General General Internal Medicine 11/10/18 documented as of this encounter
--- OUTSIDE RECORDS SUMMARY | 2023-12-23 09:38 | XMS_ITS | Encounter Summary ---
Author Organization [facility] [place] [address] Care Team Providers Care Hearing Aid Technician Name Role Phone Katia Stone Primary Care Provider Encounter Details Date Type Department Care Team (Late st Contact Info) Description 07/23/2021 [place] [phone] Mykel Stern, [facility] [place] [address] Social History Tobacco Use Types Packs/Day Years [...] were requested by Dr. Virginia Price of [facility]. Unclear follow up in our system; [...] [facility] RAD CT SCAN ??? CT PERITONEAL DRAINAGE 07/10/2021 CT Guided Drain Peritoneal 07/10/2021 Vick Boss MD [facility] RAD CT SCAN Medications: Allergies: Patient [...] st Contact Info) Description 02/04/2024 10:00 AM [facility] Hospital Encounter Non-Invasive [place] [address] Arrived documented as of this encounter Visit Diagnoses Not on filedocumented in this encounter Care Teams Hearing Aid Technician Relationship Specialty Start Date End Date Katia Stone PA [facility] [address] [place] [address] PCP - General General Internal Medicine 11/10/18 documented as of this encounter
--- OUTSIDE RECORDS SUMMARY | 2023-12-23 09:38 | XMS_ITS | Encounter Summary ---
Author Organization [facility] Address [facility] [place] [address] Care Team Providers Care Garbage Pick Up Man Name Role Phone Katia Stone Primary Care Provider [phone] Encounter Details Date Type Department Care Team (Latest Contact Info) Description 08/13/2022 10:00 AM EDT - 08/13/2022 11:59 PM EDT Hospital Encounter Non-[place] [address] Discharge Disposition: Home Social History Tobacco Use [...] AM EST Hospital Encounter Non-Invasive [place] [address] Arrived documented as of this encounter Procedures [...] filedocumented in this encounter Care Teams Garbage Pick Up Man Relationship Specialty Start Date End Date Katia Stone PA [address] [place] [address] PCP - General General Internal Medicine 11/10/18 documented as of this encounter
--- OUTSIDE RECORDS SUMMARY | 2023-12-23 09:38 | XMS_ITS | Encounter Summary ---
Author Organization [facility] Address [facility] [place] [address] Care Team Providers Care Flame Cutting Machine Operator Name Role Phone Katia Stone Primary Care Provider [phone] Encounter Details Date Type Department Care Team (Late st Contact Info) Description 07/09/2021 1:35 PM EDT Ancillary Procedure Radiology Library at [facility] [place] [phone] Nolan Beth MD [facility] [place] [address] Social History Tobacco Use Types Packs/Day Years [...] AM EST Hospital Encounter Non-Invasive [place] [phone] Arrived documented as of this encounter Procedures [...] MD IMG FILM LIBRARY OR DERABLES [facility] [place], [place] documented in this encounter Visit Diagnoses Not on filedocumented in this encounter Care Teams Flame Cutting Machine Operator Relationship Specialty Start Date End Date Katia Stone PA [address] [place] [phone] PCP - General General Internal Medicine 11/10/18 documented as of this encounter
--- OUTSIDE RECORDS SUMMARY | 2023-12-23 09:38 | XMS_ITS | Encounter Summary ---
[place] [address] Care Team Providers Care Retail Attendant Name Role Phone Katia Stone Primary Care Provider Encounter Details Date Type Department Care Team (Late st Contact Info) Description 11/25/2019 Telephone Cardiology at [address] [phone] Gayla Ochoa, RN Social History Tobacco Use [...] is requesting acceptance of a referral to [facility] for Tim. States that Tim normally [...] AM EST Hospital Encounter Non-[place] [address] Arrived documented as of this encounter Visit Diagnoses Not on filedocumented in this encounter Care Teams Retail Attendant Relationship Specialty Start Date End Date Katia Stone PA [address] [place] [address] PCP - General General Internal Medicine 11/10/18 documented as of this encounter
--- OUTSIDE RECORDS SUMMARY | 2023-12-23 09:38 | XMS_ITS | Encounter Summary ---
Author Organization [facility] Address [facility] [place] [address] Care Team Providers Care Hat Body Sorter Name Role Phone Katia Stone Primary Care Provider Encounter Details Date Type Department Care Team (Late st Contact Info) Description 07/22/2022 Orders Only Cardiology at [address] [phone] Humberto Ashraf PA [facility] [place] [address] Social History Tobacco Use Types Packs/Day Years Used Date Smoking Tobacco: Never Assessed Sex and Gender Information Value Date Recorded Sex Assigned at Not on file Gender Identity Not on file Sexual Orientation Not on file documented as of this encounter Progress Notes * Humberto Ashraf PA - 07/22/2022 3:02 PM EDT Cardiac Electrophysiology 71yo man with hx of CHB, s/p dual lead [employer] pacemaker implant implanted 04/30/2017, complicated by pericardial effusion with tamponade requiring RA lead reposition on 05/16/2020. RA lead function has continued to deteriorate with significantly elevated pacing threshold. His device has now tripped to DIONICIO on 07/10/2022. Dr. Story evaluated her device on 07/03/2022 at [facility] clinic visit and reviewed risk/benefit [...] AM EST Hospital Encounter Non[place] [address] Arrived documented as of this encounter Visit Diagnoses Not on filedocumented in this encounter Care Teams Hat Body Sorter Relationship Specialty Start Date End Date Katia Stone PA [address] [place] [phone] PCP - General General Internal Medicine 11/10/18 documented as of this encounter
--- OUTSIDE RECORDS SUMMARY | 2023-12-23 09:38 | XMS_ITS | Encounter Summary ---
Author Organization [facility] Address [facility] [place] [address] Care Team Providers Care Transformer Tester Name Role Phone Katia Stone Primary Care Provider [phone] Encounter Details Date Type Department Care Team (Latest Contact Info) Description 06/26/2021 3:30 PM EDT Ancillary Procedure Radiology Library at [facility] [place] [address] Mykel Stern [facility] [place] [address] Gallbladder abscess Social History Tobacco Use Types [...] PRE-PROCEDURE NOTE: PCP: GIRISH Johnson Referring Provider: [facility] General Surgery: Virginia Price DO Planned [...] History was communicated by Dr. Price from [facility]. They are requesting a gallbladder fossa [...] INR; Coags (need to be faxed from [facility]) Sedation: Moderate (Conscious sedation) Prophylactic antibiotic : -- (NKDA per Dr. Pirce. Already receiving ABX) Contrast: No contrast Additional [...] AM EST Hospital Encounter Non-Invasive [place] [address] Arrived documented as of this encounter Procedures Procedure Name Priority Date/Time Associated Diagnosis Comments FILM LIBRARY STORAGE ONLY CT ABDOMEN AND PELVIS Routine 06/26/2021 3:25 PM EDT documented in this encounter Results * Film Library- Storage Only CT Abdomen & Pelvis (06/26/2021 3:25 PM EDT) Narrative [facility] - 06/26/2021 3:25 PM EDT This exam is auto-finalizing. It's purpose is for storage only. Mykel Stern DO IMShaun FILM LIBRARY ORD ERABLES Performing Organization Address City/State/[facility] Co de Phone Number [place], [place] documented in this encounter Visit Diagnoses Diagnosis Gallbladder abscess Acute cholecystitis documented in this encounter Care Teams Transformer Tester Relationship Specialty Start Date End Date Katia Stone PA [facility] [address] [place] [address] PCP - General General Internal Medicine 11/10/18 documented as of this encounter
--- OUTSIDE RECORDS SUMMARY | 2023-12-23 09:38 | XMS_ITS | Encounter Summary ---
[place] [address] Care Team Providers Care Motor Room Controller Name Role Phone Katia Stone Primary Care Provider Encounter Details Date Type Department Care Team (Late st Contact Info) Description 09/18/2022 Telephone Cardiology at [address] [phone] Zee Hyde Social History Tobacco Use Types [...] she will schedule him for those at [facility]. documented in this encounter Plan of Treatment Upcoming Encounters Date Type Department Care Team (Late st Contact Info) Description 02/04/2024 10:00 AM [facility] Hospital Encounter Non[place] [phone] Arrived documented as of this encounter Visit Diagnoses Not on filedocumented in this encounter Care Teams Motor Room Controller Relationship Specialty Start Date End Date Katia Stone PA [address] [place] [phone] PCP - General General Internal Medicine 11/10/18 documented as of this encounter
--- OUTSIDE RECORDS SUMMARY | 2023-12-23 09:38 | XMS_ITS | Encounter Summary ---
Author Organization [place] [address] Care Team Providers Care Log Turner Name Role Phone Katia Stone Primary Care Provider [phone] Reason for Visit * Auth/Cert (Routine) Specialty [...] OR PM) (WRVU 4.92) Dylan Story MD [facility] [place] [address] [facility] Referral ID Status Reason Start Date Expiration Date Visits Re quested Visits Authorized [id number] 1 1 Encounter Details Date Type Department Care Team (Late st Contact Info) Description 09/23/2022 1:23 PM EDT Anesthesia Event [place] [address] Alida Lopez MD [facility] [place] [address] Anesthesia Record Procedure Summary Procedure Name Responsible [...] 1012; metacarpal vein (top of hand), left; [id number] catheter system; 22 gauge; OSH; 09/23/22; 1307 07/10/21 1012 by Marilyn Duncan RN 09/23/22 1307 by eJssica Sandhu RN (RETIRED) Peripheral IV Line - Single Lumen 09/23/22; 1307; metacarpal vein (top of hand), left; [id number] catheter system; Anatomical Landmarks; 20 gauge; anes; [...] Room / Location: EP B-LAB ROOM / [facility] EP LABS Anesthesia Start: 1323 [...] All Anesthesia Providers: Anesthesiologist: Alida Lopez MD CUSTOMER EXPERIENCE RETAIL CLERK: Jill Ríos CRNA Vitals Value Taken Time BP 125/94 09/23/22 1715 Temp 36.4 ??C (97.5 ??F) 09/23/22 1634 Pulse 73 09/23/22 1722 Resp 20 09/23/22 1722 SpO2 92 % 09/23/22 1722 Pain Level 10 09/23/22 1720 Vitals shown include unvalidated device data. Patient Location: PACU/[facility] Level of Consciousness: Conscious but Sleepy Pain [...] Chest Tube/Pleural Drain 07/10/2021 Vick Boss MD [facility] RAD CT SCAN ??? CT PERITONEAL DRAINAGE 07/10/2021 CT Guided Drain Peritoneal 07/10/2021 Vick Boss MD [facility] RAD CT SCAN Social History [...] risks discussed with patient. Plan discussed with CUSTOMER EXPERIENCE RETAIL CLERK and attending. Anesthesia Screening documented in this encounter Plan of Treatment Upcoming Encounters Date Type Department Care Team (Late st Contact Info) Description 02/04/2024 10:00 AM [facility] Hospital Encounter [place] [address] Arrived documented as of this [...] mg documented in this encounter Care Teams Log Turner Relationship Specialty Start Date End Date Katia Stone PA [address] [place] [phone] PCP - General General Internal Medicine 11/10/18 documented as of this encounter
[2023-12-23 10:49] LABS: BE (Venous) 2 mmol/L (-2-3); HCO3 (Venous) 26 mmol/L (23-28); pCO2 (Venous) 39 mmHg (41-51); pH (Venous) 7.44 (7.31-7.41); pO2 (Venous) 172 mmHg
[2023-12-23 10:51] LABS: Absolute Basophil Count 0.06 10^3/uL (0.0-0.2); Absolute Eosinophil Count 0.29 10^3/uL (0.0-0.7); Absolute Lymphocyte Count 1.96 10^3/uL (1.2-3.4); Absolute Monocyte Count 1.27 10^3/uL (0.1-0.8); Absolute Neutrophil Count 10.74 10^3/uL (1.2-6.7); Basophils % 0.4 %; HCT 38.7 % (40.0-50.0); HGB 13.1 g/dL (13.5-17.5); Immature Grans % 0.7 %; Lymphocytes % 13.6 %; MCH 33.6 pg (27.0-33.0); MCHC 33.9 % (32.0-36.0); MCV 99 fL (80-95); MPV 11.7 fL (8.0-11.0); Monocytes % 8.8 %; Neutrophils % 74.5 %; Platelet Count 235 10^3/uL (130-400); RDW 12.2 % (11.8-14.1); RDW-SD 44.8 fL; WBC 14.42 10^3/uL (4.4-10.8)
[2023-12-23] MEDS: Normal Saline - Diluent 50 ML VIAL IJ (10:59)
[2023-12-23] MEDS: Omnipaque 350 MG/ML 500 ML BTL-Imaging package 100 ML IJ (11:01)
[2023-12-23 11:04] LABS: ALT 21 U/L (16-63); AST 28 U/L (15-37); Albumin 2.5 g/dL (3.4-5.0); Alkaline Phosphatase 81 U/L (46-116); Anion Gap 9.4 mmol/L (3-11); BUN 12 mg/dL (7-18); Bilirubin, Total 0.33 mg/dL (0.2-1.0); CO2 26.6 mmol/L (21.0-32.0); CREATININE 0.5 mg/dL (0.70-1.30); Calcium 8.4 mg/dL (8.5-10.1); Chloride 105 mmol/L (98-107); Glucose 96 mg/dL (74-106); Magnesium 1.6 mg/dL (1.8-2.4); Potassium 3.2 mmol/L (3.5-5.1); Sodium 141 mmol/L (136-145); Total Protein 7.3 g/dL (6.4-8.2)
[2023-12-23 11:10] LABS: Troponin I 32 ng/L (<or=76)
--- NOTE | 2023-12-23 11:12 | DI.CT_ITS ---
Exam(s) CT CHEST PE CTA EXAM: CT CHEST PE CTA CLINICAL HISTORY: dyspnea, hemoptysis. TECHNIQUE: Imaging Protocol: CT angiography of the chest was performed using pulmonary embolus olya col. Multi planar reconstructions were performed. CONTRAST MATERIAL: Intravenous: Omnipaque 350 Contrast volume: 100 cc COMPARISON: CT CT CHEST/ABD/PEL WO from 09/16/2022 CR,XR XR CHEST 2V PA LATERAL from 08/16/2023 FINDINGS: CHEST: PULMONARY ARTERIES: There are no intraluminal filling defects to suggest acute pulmonary emboli. LUNGS: Again noted is prominent circumferential calcified pleural plaque on the right side with mild increased right lung base markings.. On the left side there is again noted a moderate size unchanged loculated pleural effusion. Some scarring in the lateral left lung is noted but there is no pleural calcification on the left side evident. No new ominous lung masses. No findings in the trachea and mainstem bronchi. No rib destruction. MEDIASTINUM: There is no hilar nor mediastinal adenopathy. Thyroid not enlarged. CARDIAC: Cardiomegaly. No pericardial effusion. The diameter of the ascending thoracic aorta is enl arged, measuring 4.8 cm. The diameter of the mid aortic arch is also increased, measuring 3.2 cm. T he diameter of the proximal descending thoracic aorta is also enlarged, measuring 3.4 cm. The diamet er of the mid-distal descending thoracic aorta is slightly enlarged measuring 2.7 cm. There is no ev idence of thoracic aortic dissection. Coronary artery calcifications noted as well as pacemaker wire s. There is no significant shift of the interventricular septum. PARTIALLY VISUALIZED UPPERMOST ABDOMEN: No obvious findings OSSEOUS: No significant osseous lesions.. IMPRESSION: 1. No evidence of acute pulmonary emboli. No evidence of pulmonary infarction. 2. Prominent calcified pleural plaque on the right side again noted. No calcified pleural plaque on the left side but there is an unchanged moderate sized loculated left pleural effusion again noted. Also some scarring laterally in the left lung. 3. Enlarged ascending thoracic aorta with diameter of 4.8 cm. Also some enlargement of the aortic ar ch and descending thoracic aorta. There is no evidence of aortic dissection and no pericardial effus ion. Report called by myself to ER physician 12/23/2023 at 11:35 a.m. RADIATION DOSE DELIVERED: 399.1mGy.cm Total DLP DATA REPOSITORY: All CT scans at this facility are submitted to the National Radiology Data Registry (NRDR) Dose Index Registry (DIR) with the [employer] (ACR). RADIATION OPTIMIZATION: All CT scans at this facility use at least one of these dose optimization te chniques: automated exposure control; mA and/or kV adjustment per patient size (includes targeted exa ms where dose is matched to clinical indication); or iterative reconstruction.
[2023-12-23 11:21] LABS: INR 1.3 (0.9-1.1); PTT Activated 27.8 sec (23.6-32.8); Prothrombin Time 12.6 sec (9.1-11.1)
[2023-12-23 11:34] LABS: Procalcitonin < 0.1 ng/mL
[2023-12-23 12:22] LABS: Troponin I 37 ng/L (<or=76)
[2023-12-23] MEDS: Doxycycline Hyclate 100 MG CAP PO (12:39)
[2023-12-23 13:17] VITALS: BP 120/90; PULSE 80; RESP 18; TEMP 37.1; O2SAT 94
== END 2023-12-23 13:20 | disposition home or self-care (01) ==
PROVIDERS: Emergency Provider Emergency Medicine; PCP Legal Medicine
DX: R04.2 Hemoptysis (principal); I10 Essential (primary) hypertension; I25.10 Atherosclerotic heart disease of native coronary artery without angina pectoris; F03.90 Unspecified dementia, unspecified severity, without behavioral disturbance, psychotic disturbance, mood disturbance, and anxiety; Z86.73 Personal history of transient ischemic attack (TIA), and cerebral infarction without residual deficits; Z95.0 Presence of cardiac pacemaker; Z87.891 Personal history of nicotine dependence
CPT/HCPCS: 36415; 71275; 80053; 82805; 84145; 87040; 87637; 93005; 99285; 83735; 84484; 85025; 85610; 85730; 93010; 99284

== ENCOUNTER 2023-12-24 18:39 | Outpatient (REF) | payer MEDICARE, MEDICAID, SELFPAY ==
[2023-12-24 18:39] LABS: Absolute Eosinophil Count 0.31 10^3/uL (0.0-0.7); Absolute Lymphocyte Count 2.18 10^3/uL (1.2-3.4); Absolute Monocyte Count 1.29 10^3/uL (0.1-0.8); Basophils % 0.5 %; Eosinophils % 2.4 %; HCT 39.7 % (40.0-50.0); Immature Grans % 0.8 %; MCH 33.2 pg (27.0-33.0); MCHC 32.7 % (32.0-36.0); MCV 101 fL (80-95); MPV 12.2 fL (8.0-11.0); Neutrophils % 69.3 %; Platelet Count 255 10^3/uL (130-400); RBC 3.92 10^6/uL (4.36-5.78); RDW 12.3 % (11.8-14.1); RDW-SD 45.9 fL; WBC 12.85 10^3/uL (4.4-10.8)
[2023-12-24 18:40] LABS: Absolute Basophil Count 0.06 10^3/uL (0.0-0.2); Absolute Neutrophil Count 8.91 10^3/uL (1.2-6.7)
--- OUTSIDE RECORDS SUMMARY | 2023-12-24 18:42 | XMS_ITS | Encounter Summary ---
Author Organization [facility] Address [address] [place] [address] Care Team Providers Care Cogeneration Operator Name Role Phone Katia Stone PA-C Primary Care Provider +1- [phone] Reason for Visit * (Routine/Next Available) - New Request Specialty Diagnoses / Procedures Referred By Contac t Referred To Contact Procedures CT OUTSIDE IMAGES BODY Unknown, Provider, Referral ID Status Reason Start Date Expiration Date V isits Requested Visits Authorized [id number] New Request 06/20/2021 1 1 Encounter Details Date Type Department Care Team (Latest Contact Info) Description 06/20/2021 15:36 EDT - 06/20/2021 23:59 EDT Hospital Encounter [facility] Secondary Reads [place] Discharge Disposition: Home [...] on filedocumented in this encounter Care Teams Cogeneration Operator Relationship Specialty Start Date End Date Katia Stone, PABijalC [address] [place] [phone] PCP - General 05/02/17 documented as of this encounter
--- OUTSIDE RECORDS SUMMARY | 2023-12-24 18:42 | XMS_ITS | Encounter Summary ---
Author Organization [facility] Address [address] [place] [address] Care Team Providers Care Ibm Bpm Architect Name Role Phone Katia Stone PA-C Primary Care Provider +1- [phone] Encounter Details Date Type Department Care Team (Late st Contact Info) Description 08/25/2020 Lab Requisition [facility] Pathology & Laboratory Medicine - [address] [address] Outr Resulting Lab, Provider Social History Tobacco [...] Few Usual skin jesi 08/27/2020 15:22 EDT [facility] Smear Few Neutrophils Present(A) 08/27/2020 15:22 EDT [facility] Smear No bacteria seen(A) 08/27/2020 15:22 EDT [facility] Swab ENTIRE UPPER LIMB / Unknown 08/25/2020 14:15 EDT 08/25/2020 21:17 EDT Provider Outr Resulting Lab MICROBIOLOGY - GENERAL ORDERABLES [facility] [address] [place] [address] documented in this encounter Visit Diagnoses Not on filedocumented in this encounter Additional Health Concerns Infection Onset Date Last Indicated Resolved Time RSV 01/31/2022 01/31/2022 02/10/2022 22:1 5 EST documented as of this encounter Care Teams Ibm Bpm Architect Relationship Specialty Start Date End Date Katia Stone, PABijalC [address] [facility] [place] [facility] [place] [id number] PCP - General 05/02/17 documented as of this encounter
--- OUTSIDE RECORDS SUMMARY | 2023-12-24 18:42 | XMS_ITS | Encounter Summary ---
Author Organization [facility] Address [address] [place] [address] Care Team Providers Care Target Trimmer Name Role Phone Katia Stone PA-C Primary Care Provider +1- [phone] Encounter Details Date Type Department Care Team (Late st Contact Info) Description 08/12/2020 Results Only [facility] Rheumatology [address] [place] [address] Ester Valerio MD [address] [facility] [address] [place] [phone] Social History Tobacco Use Types Packs/Day Years [...] 1.8 - 2.4 mg/dl 08/12/2020 7:37 EDT [facility] 08/12/2020 6:48 EDT 08/12/2020 7:00 EDT Ester Valerio MD CHEMISTRY & BLOO D GAS ORDERABLES Performing Organization Address City/State/[facility] Co de Phone Number [facility] [address] [place] [address] * (ABNORMAL) BASIC METABOLIC PANEL (BMP) (08/12/2020 6:48 EDT) Sodium 135(L) 136 - 145 mEq/L 08/12/2020 7:37 EDT [facility] Potassium 3.2(L) 3.5 - 5.1 mEq/L 08/12/2020 7:37 EDT [facility] Chloride 101 96 - 107 mEq/L 08/12/2020 7:37 EDT [facility] CO2 Total 28.8 21 - 32 mEq/L 08/12/2020 7:37 [facility] Anion Gap 4.2 mEq/L 08/12/2020 7:37 [facility] BUN 5(L) 7 - 25 mg/dl 08/12/2020 7:37 [facility] Creatinine 0.50(L) 0.70 - 1.30 mg/dl 08/12/2020 7:37 [facility] Estimated GFR >60 >60 08/12/2020 7:37 [facility] Comment: EGFR UNITS: mL/min/1.73 m 2 CKD-EPI Equation used to calculate. Glucose 102 74 - 106 mg/dl 08/12/2020 7:37 [facility] Calcium 7.9(L) 8.5 - 10.1 mg/dl 08/12/2020 7:37 [facility] 08/12/2020 6:48 EDT 08/12/2020 7:00 EDT Ester Valerio MD CHEMISTRY & BLOO D GAS ORDERABLES [facility] [address] [place] [address] * (ABNORMAL) HEPATIC FUNCTION PANEL (ALB,ALK PHOS,ALT,AST,DBIL,TOT BOSSMAN,TOT PROT) (08/12/2020 6:48 EDT) BILIRUBIN - PMC 0.50 0.00 - 1.00 mg/dl 08/12/2020 7:37 [facility] DIRECT BILIRUBIN - PMC 0.20 0.00 - 0.30 mg/dl 08/12/2020 7:37 [facility] INDIRECT BILIRUBIN - PMC 0.30 0.00 - 0.80 mg/dl 08/12/2020 7:37 [facility] AST 31 15 - 37 U/L 08/12/2020 7:37 [facility] ALT 25 16 - 63 U/L 08/12/2020 7:37 [facility] Alkaline Phosphatase 99 46 - 116 U/L 08/12/2020 7:37 EDT [facility] Total Protein 5.9(L) 6.4 - 8.2 g/dl 08/12/2020 7:37 EDT [facility] Albumin 2.2(L) 3.4 - 5.0 g/dl 08/12/2020 7:37 EDT [facility] GLOBULIN - PMC 3.7 g/dl 08/12/2020 7:37 EDT [facility] ALBUMIN/GLOBULIN RATIO - PMC 0.5 08/12/2020 7:37 EDT [facility] 08/12/2020 6:48 EDT 08/12/2020 7:00 EDT Ester Valerio MD CHEMISTRY & BLOO D GAS ORDERABLES [facility] [address] [place] [address] documented in this encounter Visit Diagnoses Not on filedocumented in this encounter Care Teams Target Trimmer Relationship Specialty Start Date End Date Katia Stone, PABijalC [address] [place] [phone] PCP - General 05/02/17 documented as of this encounter
--- OUTSIDE RECORDS SUMMARY | 2023-12-24 18:42 | XMS_ITS | Encounter Summary ---
Author Organization [facility] Address [address] [place] [address] Care Team Providers Care Value Stream Coach Name Role Phone Katia Stone PA-C Primary Care Provider +1- [phone] Encounter Details Date Type Department Care Team (Late st Contact Info) Description 08/20/2020 Results Only [facility] [address] [place] [address] Junior Ray MD [address] [place] [address] Social History Tobacco Use Types [...] 1.8 - 2.4 mg/dl 08/20/2020 13:10 EDT [facility] 08/20/2020 6:50 EDT 08/20/2020 6:59 EDT Junior Ray MD CHEMISTRY & BLOOD G ORDERABLES [facility] [address] [place] [address] * (ABNORMAL) BASIC METABOLIC PANEL (BMP) (08/20/2020 6:50 EDT) Sodium 134(L) 136 - 145 mEq/L 08/20/2020 7:27 EDT [facility] Potassium 3.6 3.5 - 5.1 mEq/L 08/20/2020 7:27 [facility] Chloride 100 96 - 107 mEq/L 08/20/2020 7:27 EDT [facility] CO2 Total 28.7 21 - 32 mEq/L 08/20/2020 7:27 T [facility] Anion Gap 5.3 mEq/L 08/20/2020 7:27 [facility] BUN 7 7 - 25 mg/dl 08/20/2020 7:27 [facility] Creatinine 0.48(L) 0.70 - 1.30 mg/dl 08/20/2020 7:27 [facility] Estimated GFR >60 >60 08/20/2020 7:27 [facility] Comment: EGFR UNITS: mL/min/1.73 m 2 CKD-EPI Equation used to calculate. Glucose 91 74 - 106 mg/dl 08/20/2020 7:27 [facility] Calcium 8.3(L) 8.5 - 10.1 mg/dl 08/20/2020 7:27 [facility] 08/20/2020 6:50 EDT 08/20/2020 6:59 EDT Junior Ray MD CHEMISTRY & BLOOD G ORDERABLES [facility] [address] [place] [address] * (ABNORMAL) COMPLETE BLOOD COUNT (08/20/2020 6:50 EDT) WBC 5.8 4.0 - 10.5 10 3/uL 08/20/2020 7:07 [facility] RBC 2.96(L) 4.70 - 6.00 10 6/uL 08/20/2020 7:07 [facility] Hemoglobin 10.5(L) 13.5 - 18.0 g/dL 08/20/2020 7:07 [facility] HCT 29.8(L) 42.0 - 52.0 % 08/20/2020 7:07 [facility] MCV 100.7(H) 78 - 100 fL 08/20/2020 7:07 [facility] MCH 35.5(H) 27 - 31 pg 08/20/2020 7:07 [facility] MCHC 35.2 32 - 37 g/dL 08/20/2020 7:07 [facility] RDW-CV - PMC 14.7 <14.7 % 08/20/2020 7:07 EDT [facility] PLATELET COUNT - PMC 253 150 - 450 10 3/uL 08/20/2020 7:07 T [facility] MPV 10.1 9.2 - 12.0 fL 08/20/2020 7:07 EDT [facility] 08/20/2020 6:50 EDT 08/20/2020 6:59 EDT Junior Ray MD HEMATOLOGY & PF4 OR DERABLES [facility] [address] [place] [address] documented in this encounter Visit Diagnoses Not on filedocumented in this encounter Care Teams Value Stream Coach Relationship Specialty Start Date End Date Katia Stone, PABijalC [address] [place] [phone] PCP - General 05/02/17 documented as of this encounter
--- OUTSIDE RECORDS SUMMARY | 2023-12-24 18:42 | XMS_ITS | Encounter Summary ---
Author Organization [facility] Address [address] [place] [address] Care Team Providers Care Cylinder Press Operator Name Role Phone Katia Stone PA-C Primary Care Provider +1- [phone] Encounter Details Date Type Department Care Team (Late st Contact Info) Description 04/30/[address] [facility] Pathology & Laboratory Medicine - [address] [address] Ike Chahal MD [address] [place] [address] Disorder of the skin and subcutaneous tissue, [...] explore management options, if applicable. 05/01/2022 14:29 [facility] Final Diagnosis A. SKIN OF NASAL TIP, EXCISION: - Dermal fibrosis, adipose accumulation, and edema with sebaceous hyperplasia and lymphoplasmacytic inflammation. See comment. 05/01/2022 14:29 [facility] Diagnosis Comment The histopathologic features, in the correct clinical setting, are most suggestive of rhinophyma. There is no evidence of malignancy. 05/01/2022 14:29 [facility] Attestation By the signature below, the attending physician certifies that they have 1) personally conducted a gross and/or microscopic examination of the described specimen(s), and/or personally interpreted the results of laboratory testing of the described specimen(s), and 2) personally rendered or confirmed the above diagnosis. 05/01/2022 14:29 [facility] at 1429 Microscopic Description [...] direct continuity with overlying epidermis. 05/01/2022 14:29 [facility] Clinical History Nasal tip lesion; clinical diagnosis code: L98.9 05/01/2022 14:29 [facility] Gross Description A. Received [...] sections GIRISH GOMEZ(ASCP) 04/30/2022 9:39 05/01/2022 14:29 [facility] Performing Lab [facility] 05/01/2022 14:29 [facility] Scanned Images 05/01/2022 14:29 [facility] Tissue TISSUE SPECIMEN FROM SKIN / Unknown 04/29/2022 14:00 EST 04/30/2022 9:00 EST Ike Chahal MD PATHOLOGY ORDERABLES [facility] [address] [place] [address] documented in this encounter Visit Diagnoses Diagnosis Disorder of the skin and subcutaneous tissue, unspecified documented in this encounter Care Teams Cylinder Press Operator Relationship Specialty Start Date End Date Katia Stone, BELLAC [address] [facility] [place] [phone] PCP - General 05/02/17 documented as of this encounter
--- OUTSIDE RECORDS SUMMARY | 2023-12-24 18:42 | XMS_ITS | Encounter Summary ---
Author Organization [facility] Address [address] [place] [address] Care Team Providers Care Grinding Mill Operator Name Role Phone Katia Stone PA-C Primary Care Provider +1- [phone] Encounter Details Date Type Department Care Team (Late st Contact Info) Description 09/15/2020 Results Only [facility] [address] [place] [address] Junior Ray MD [address] [place] [address] Social History Tobacco Use Types [...] 4.0 - 10.5 10 3/uL 09/15/2020 5:45 [facility] RBC 3.26(L) 4.70 - 6.00 10 6/uL 09/15/2020 5:45 [facility] Hemoglobin 11.2(L) 13.5 - 18.0 g/dL 09/15/2020 5:45 [facility] HCT 31.9(L) 42.0 - 52.0 % 09/15/2020 5:45 [facility] MCV 97.9 78 - 100 fL 09/15/2020 5:45 [facility] MCH 34.4(H) 27 - 31 pg 09/15/2020 5:45 [facility] MCHC 35.1 32 - 37 g/dL 09/15/2020 5:45 [facility] RDW-CV - PMC 12.4 <14.7 % 09/15/2020 5:45 [facility] PLATELET COUNT - PMC 256 150 - 450 10 3/uL 09/15/2020 5:45 [facility] MPV 10.6 9.2 - 12.0 fL 09/15/2020 5:45 [facility] 09/15/2020 5:25 EDT 09/15/2020 5:28 EDT Junior Ray MD HEMATOLOGY & PF4 OR DERABLES [facility] [address] [place] [address] documented in this encounter Visit Diagnoses Not on filedocumented in this encounter Care Teams Grinding Mill Operator Relationship Specialty Start Date End Date Katia Stone, PABijalC [address] [place] [phone] PCP - General 05/02/17 documented as of this encounter
--- OUTSIDE RECORDS SUMMARY | 2023-12-24 18:42 | XMS_ITS | Encounter Summary ---
Author Organization [facility] Address [address] [place] [address] Care Team Providers Care Fly Winder Name Role Phone Katia Stone PA-C Primary Care Provider +1- [phone] Encounter Details Date Type Department Care Team (Late st Contact Info) Description 08/17/2023 Lab Requisition [facility] Pathology & Laboratory Medicine - [address] [address] Outr Resulting Lab, Provider Social History Tobacco [...] 1,150 mOsm/kg 08/17/2023 16:14 EDT [facility] Urine URINE / Unknown 08/16/2023 2 1:50 EDT 08/17/2023 16:03 EDT Provider Outr Resulting Lab URINALYSIS O RDERABLES [facility] [address] [place] [address] documented in this encounter Visit Diagnoses Not on filedocumented in this encounter Care Teams Fly Winder Relationship Specialty Start Date End Date Katia Stone PA-C [address] [place] [phone] PCP - General 05/02/17 documented as of this encounter
--- OUTSIDE RECORDS SUMMARY | 2023-12-24 18:42 | XMS_ITS | Encounter Summary ---
Author Organization [facility] Address [address] [place] [address] Care Team Providers Care Claims Account Specialist Name Role Phone Katia Stone PA-C Primary Care Provider +1- [phone] Encounter Details Date Type Department Care Team (Late st Contact Info) Description 08/19/2020 Results Only [facility] [address] [place] [address] Junior Ray MD [address] [place] [address] Social History Tobacco Use Types [...] 134(L) 136 - 145 mEq/L 08/19/2020 7:41 [facility] Potassium 3.5 3.5 - 5.1 mEq/L 08/19/2020 7:41 [facility] Chloride 99 96 - 107 mEq/L 08/19/2020 7:41 [facility] CO2 Total 29.4 21 - 32 mEq/L 08/19/2020 7:41 [facility] Anion Gap 5.6 mEq/L 08/19/2020 7:41 [facility] BUN 8 7 - 25 mg/dl 08/19/2020 7:41 [facility] Creatinine 0.48(L) 0.70 - 1.30 mg/dl 08/19/2020 7:41 [facility] Estimated GFR >60 >60 08/19/2020 7:41 [facility] Comment: EGFR UNITS: mL/min/1.73 m 2 CKD-EPI Equation used to calculate. Glucose 93 74 - 106 mg/dl 08/19/2020 7:41 [facility] Calcium 8.3(L) 8.5 - 10.1 mg/dl 08/19/2020 7:41 [facility] 08/19/2020 7:10 EDT 08/19/2020 7:13 EDT Junior Ray MD CHEMISTRY & BLOOD G ORDERABLES [facility] [address] [place] [address] documented in this encounter Visit Diagnoses Not on filedocumented in this encounter Care Teams Claims Account Specialist Relationship Specialty Start Date End Date Katia Stone, PABijalC [address] [facility] [place] [facility] [place] [phone] PCP - General 05/02/17 documented as of this encounter
--- OUTSIDE RECORDS SUMMARY | 2023-12-24 18:42 | XMS_ITS | Encounter Summary ---
Author Organization [facility] Address [address] [place] [address] Care Team Providers Care Canceling And Cutting Control Clerk Name Role Phone Katia Stone PA-C Primary Care Provider +1- [phone] Encounter Details Date Type Department Care Team (Late st Contact Info) Description 08/22/2020 Results Only [facility] [phone] Rowan Abad, TAIWO [address] [place] [address] Social History Tobacco Use Types Packs/Day [...] Results * MAGNESIUM (08/22/2020 5:30 EDT) Pathologist [facility] Magnesium 1.8 1.8 - 2.4 mg/dl 08/22/2020 6:03 T [facility] 08/22/2020 5:30 EDT 08/22/2020 5:39 EDT Rowan Abad NP CHEMISTRY & BLOOD GA S ORDERABLES [facility] [address] [place] [address] * (ABNORMAL) BASIC METABOLIC PANEL (BMP) (08/22/2020 5:30 EDT) Sodium 133(L) 136 - 145 mEq/L 08/22/2020 6:03 EDT [facility] Potassium 3.7 3.5 - [...] BLOOD GA S ORDERABLES Performing Organization Address City/State/[facility] Co de Phone Number [facility] [address] [place] [address] * (ABNORMAL) COMPLETE BLOOD COUNT AND DIFFERENTIAL [...] 5:30 EDT 08/22/2020 5:39 EDT Rowan Abad GOGGLES ASSEMBLER PACKAGES & DNA PROBE ORDERABLES [facility] [address] [place] [address] documented in this encounter Visit Diagnoses Not on filedocumented in this encounter Care Teams Canceling And Cutting Control Clerk Relationship Specialty Start Date End Date Katia Stone, PABijalC [address] [place] [phone] PCP - General 05/02/17 documented as of this encounter
--- OUTSIDE RECORDS SUMMARY | 2023-12-24 18:42 | XMS_ITS | Clinical Summary ---
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 Hypertensive urgency 05/01/2017 Heart block AV third degree ([facility]) 04/30/2017 Resolved Problems Problem Noted Date Diagnosed Date Resolved Date Acute on chronic diastolic c ongestive heart failure ([facility]) 05/01/2017 05/27/2017 Surgical History Surgery Date Site/Laterality Comments PACEMAKER PLACEMENT 03/03/2017 - 03/02/2018 OTHER SURGICAL HISTORY 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 Also lead rep [...] many all messed up Complete heart block ([facility]) 0 06/19/20 now has pacemaker with infected lead CAD (coronary artery disease) per pt Community acquired pneumonia pt states i get pneumonia every year - feels like he has it now - had a collapsed lung whoel pacer issues per pt - [place] Exterminator office aware Family History Medical History Relation [...] season) 2023 Medical Devices Implanted Type Area Straight Truck Driver Device Identifier Shelf Expiration Date Model / Serial / [id number] [facility] [id number] Implanted:05/02 (Quantity not on file) Lead [employer]ustrum [facility] / [id number] / Description:Implant record l oaded by [employer] import. 3830 [employer] Mri Surescan - [id number] Implanted:05/21 (Quantity not on file) Lead Medtronic 3830 [employer]URE MRI SURESCAN / [id number] / Description:Implant record l oaded by [employer] import. L111 [employer] Mri - [id number] Implanted:05/02 (Quantity not on file) Pacemaker [employer] L111 [employer] MRI / [id number] / Description:Implant record l oaded by IMP Chronicles import. Advance Directives For more information, please contact: [phone] * Full Code (Latest Code Status on [...] the discussion? Not Discusse d Care Teams Vice Squad Police Officer Relationship Specialty Start Date End Date Katia Stone, MINGO [address] [place] [phone] PCP - General 05/02/17
--- OUTSIDE RECORDS SUMMARY | 2023-12-24 18:42 | XMS_ITS | Encounter Summary ---
Author Organization [facility] Address [address] [place] [address] Care Team Providers Care Cooky Packer Name Role Phone Katia Stone PA-C Primary Care Provider +1- [phone] Reason for Visit * Reason Comments Diarrhea Extremity Weakness Alcohol Problem Palliative Care Symptom Management Encounter Details Date Type Department Care Team (Late st Contact Info) Description 08/25/2020 External Contact [facility] [address] [place], [place] [address] Keara Stinson MD [address] [facility] [place] [address] [place] [address] Frailty (Primary Dx); ETOH abuse; [...] chronic ETOH use who was admitted to [facility] with weakness, diarrhea, and regular ETOH consumption. [...] be receptive to formal psychotherapy. A bereavement mini baccarat dealer through [facility] may be a good fit as well. Re: his advance directive. 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 Present for Visit: Tim, [...] his heart attack and was transferred to [place]. He has had several cardiac issues since. He is originally from [place] and lived in the [place] area until 2018 when his medical issues became more acute. Since then, he has lived in [place], had lived with his son Tyrese until his and more recently living with Tyrese's partner Whitney. He was raised on a farm in [place] with 7 siblings. He farmed [...] specialist documented in this encounter Care Teams Cooky Packer Relationship Specialty Start Date End Date Katia Stone, BELLAC [address] [place] [address] PCP - General 05/02/17 documented as of this encounter
--- OUTSIDE RECORDS SUMMARY | 2023-12-24 18:42 | XMS_ITS | Encounter Summary ---
Author Organization [facility] Address [address] [place] [address] Care Team Providers Care Electric Clock Mechanic Name Role Phone Katia Stone PA-C Primary Care Provider +1- [phone] Encounter Details Date Type Department Care Team (Late st Contact Info) Description 08/25/2020 Lab Requisition [facility] Pathology & Laboratory Medicine - [address] [address] Outr Resulting Lab, Provider Social History Tobacco [...] 1, PCR Negative Negative 08/26/2020 17:[address] [facility] Herpes Simplex Virus Molecular Detection 2, PCR Negative Negative 08/26/2020 17:[address] [facility] Swab ENTIRE UPPER LIMB / Unknown 08/25/2020 14:15 EDT 08/25/2020 21:20 EDT Provider Outr Resulting Lab MICROBIOLOGY - GENERAL ORDERABLES Performing Organization Address City/State/[facility] Co de Phone Number [facility] [address] [place] [address] documented in this encounter Visit Diagnoses Not on filedocumented in this encounter Additional Health Concerns Infection Onset Date Last Indicated Resolved Time RSV 01/31/2022 01/31/2022 02/10/2022 22:1 5 EST documented as of this encounter Care Teams Electric Clock Mechanic Relationship Specialty Start Date End Date Katia Stone PA-C [address] [place] [address] PCP - General 05/02/17 documented as of this encounter
--- OUTSIDE RECORDS SUMMARY | 2023-12-24 18:42 | XMS_ITS | Encounter Summary ---
Author Organization [facility] Address [address] [place] [address] Care Team Providers Care Project Account Manager Name Role Phone Katia Stone PA-C Primary Care Provider +1- [phone] Encounter Details Date Type Department Care Team (Late st Contact Info) Description 09/26/2020 Results Only [facility] [phone] Rowan Abad, TAIWO [address] [place] [phone] Social History Tobacco Use Types Packs/Day [...] S ORDERABLES [facility] [address] [place] [address] * (ABNORMAL) BASIC METABOLIC PANEL (BMP) (09/26/2020 14:33 EDT) Sodium 131(L) 136 - 145 mEq/L 09/26/2020 15:12 EDT [facility] Potassium 4.2 3.5 - 5.1 mEq/L 09/26/2020 15:12 [facility] Chloride 96 96 - 107 mEq/L 09/26/2020 15:12 EDT [facility] CO2 Total 30.9 21 - 32 mEq/L 09/26/2020 15:12 T [facility] Anion Gap 3.1 mEq/L 09/26/2020 15:12 [facility] BUN 10 7 - 25 mg/dl 09/26/2020 15:12 [facility] Creatinine 0.82 0.70 - 1.30 mg/dl 09/26/2020 15:12 [facility] Estimated GFR >60 >60 09/26/2020 15:12 [facility] Comment: EGFR UNITS: mL/min/1.73 m 2 CKD-EPI Equation used to calculate. Glucose 111(H) 74 - 106 mg/dl 09/26/2020 15:12 [facility] Calcium 8.6 8.5 - 10.1 mg/dl 09/26/2020 15:12 [facility] 09/26/2020 14:3 3 EDT 09/26/2020 14:54 EDT Rowan Abad NP CHEMISTRY & BLOOD GA S ORDERABLES Performing Organization Address City/State/[facility] Co de Phone Number [facility] [address] [place] [address] * (ABNORMAL) COMPLETE BLOOD COUNT AND DIFFERENTIAL (09/26/2020 14:33 EDT) WBC 7.3 4.0 - 10.5 10 3/uL 09/26/2020 15:08 [facility] RBC 3.30(L) 4.70 - 6.00 10 6/uL 09/26/2020 15:08 [facility] Hemoglobin 11.2(L) 13.5 - 18.0 g/dL 09/26/2020 15:08 [facility] HCT 32.0(L) 42.0 - 52.0 % 09/26/2020 15:08 [facility] MCV 97.0 78 - 100 fL 09/26/2020 15:08 [facility] MCH 33.9(H) 27 - 31 pg 09/26/2020 15:08 [facility] MCHC 35.0 32 - 37 g/dL 09/26/2020 15:08 [facility] RDW-CV - PMC 11.7 <14.7 % 09/26/2020 15:08 [facility] PLATELET COUNT - PMC 291 150 - 450 10 3/uL 09/26/2020 15:08 [facility] MPV 11.0 9.2 - 12.0 fL 09/26/2020 15:08 [facility] NEUTROPHILS % (AUTO) - PMC 59.3 % 09/26/2020 15:08 [facility] LYMPHOCYTES % (AUTO) - PMC 23.9 % 09/26/2020 15:08 [facility] MONOCYTES % (AUTO) - PMC 12.3 % 09/26/2020 15:08 [facility] EOSINOPHILS % (AUTO) - PMC 2.9 NOT ESTABLISHED % 09/26/2020 15:08 [facility] BASOPHILS % (AUTO) - PMC 1.0 % 09/26/2020 15:08 [facility] Immature Granulocyte % (Auto) 0.6 % 09/26/2020 15:08 [facility] NUCLEATED RBC % (AUTO) - PMC 0.0 % 09/26/2020 15:08 [facility] NEUTROPHILS # (AUTO) - PMC 4.3 1.5 - 6.6 10 3/uL 09/26/2020 15:08 [facility] LYMPHOCYTES # (AUTO) - PMC 1.7 1.0 - 3.5 10 3/uL 09/26/2020 15:08 [facility] MONOCYTES # (AUTO) - PMC 0.9 <1.0 10 3/uL 09/26/2020 15:08 [facility] EOSINOPHILS # (AUTO) - PMC 0.2 <0.7 10 3/uL 09/26/2020 15:08 [facility] BASOPHILS # (AUTO) - PMC 0.1 <0.1 10 3/uL 09/26/2020 15:08 [facility] Absolute Immature Granulocyte 0.04 <0.06 10 3/uL 09/26/2020 15:08 [facility] DIFFERENTIAL METHOD Auto Differential 09/26/2020 14:56 [facility] 09/26/2020 14:3 3 EDT 09/26/2020 14:54 EDT Rowan Abad [employer] GUIDE PACKAGES & DNA PROBE ORDERABLES [facility] [address] [place] [address] documented in this encounter Visit Diagnoses Not on filedocumented in this encounter Care Teams Project Account Manager Relationship Specialty Start Date End Date Katia Stone, BELLAC [address] [place] [phone] PCP - General 05/02/17 documented as of this encounter
--- OUTSIDE RECORDS SUMMARY | 2023-12-24 18:42 | XMS_ITS | Encounter Summary ---
Author Organization [facility] Address [address] [place] [address] Care Team Providers Care Plug Grower Name Role Phone Katia Stone PA-C Primary Care Provider +1- [phone] Encounter Details Date Type Department Care Team (Late st Contact Info) Description 08/18/2020 Results Only [facility] [address] [place] [address] Junior Ray MD [address] [place] [address] Social History Tobacco Use Types [...] 138 136 - 145 mEq/L 08/18/2020 5:47 [facility] Potassium 3.3(L) 3.5 - 5.1 mEq/L 08/18/2020 5:47 [facility] Chloride 101 96 - 107 mEq/L 08/18/2020 5:47 [facility] CO2 Total 31.3 21 - 32 mEq/L 08/18/2020 5:47 [facility] Anion Gap 5.7 mEq/L 08/18/2020 5:47 [facility] BUN 9 7 - 25 mg/dl 08/18/2020 5:47 [facility] Creatinine 0.66(L) 0.70 - 1.30 mg/dl 08/18/2020 5:47 [facility] Estimated GFR >60 >60 08/18/2020 5:47 [facility] Comment: EGFR UNITS: mL/min/1.73 m 2 CKD-EPI Equation used to calculate. Glucose 86 74 - 106 mg/dl 08/18/2020 5:47 [facility] Calcium 8.0(L) 8.5 - 10.1 mg/dl 08/18/2020 5:47 [facility] 08/18/2020 5:15 EDT 08/18/2020 5:27 EDT Junior Ray MD CHEMISTRY & BLOOD G ORDERABLES Performing Organization Address City/[facility]/ZIP Co de Phone Number LAB [address] [place] [address] * (ABNORMAL) COMPLETE BLOOD COUNT (08/18/2020 5:15 EDT) WBC 5.2 4.0 - 10.5 10 3/uL 08/18/2020 5:41 [facility] RBC 2.68(L) 4.70 - 6.00 10 6/uL 08/18/2020 5:41 [facility] Hemoglobin 9.4(L) 13.5 - 18.0 g/dL 08/18/2020 5:41 [facility] HCT 27.5(L) 42.0 - 52.0 % 08/18/2020 5:41 [facility] MCV 102.6(H) 78 - 100 fL 08/18/2020 5:41 [facility] MCH 35.1(H) 27 - 31 pg 08/18/2020 5:41 [facility] MCHC 34.2 32 - 37 g/dL 08/18/2020 5:41 [facility] RDW-CV - PMC 15.2(H) <14.7 % 08/18/2020 5:41 [facility] PLATELET COUNT - PMC 233 150 - 450 10 3/uL 08/18/2020 5:41 [facility] MPV 10.3 9.2 - 12.0 fL 08/18/2020 5:41 [facility] 08/18/2020 5:15 EDT 08/18/2020 5:27 EDT Junior Ray MD HEMATOLOGY & PF4 OR DERABLES Performing Organization Address City/[facility]/ZIP Co de Phone Number LAB [address] [place] [address] documented in this encounter Visit Diagnoses Not on filedocumented in this encounter Care Teams Plug Grower Relationship Specialty Start Date End Date Katia Stone, PABijalC [address] [place] [phone] PCP - General 05/02/17 documented as of this encounter
--- OUTSIDE RECORDS SUMMARY | 2023-12-24 18:42 | XMS_ITS | Encounter Summary ---
Author Organization [facility] Address [address] [place] [address] Care Team Providers Care Hospital Television Rental Clerk Name Role Phone Katia Stone PA-C Primary Care Provider +1- [phone] Encounter Details Date Type Department Care Team (Late st Contact Info) Description 08/10/2020 Results Only [facility] Rheumatology [address] [place] [address] Ester Valerio MD [address] [place] [phone] Social History Tobacco Use Types Packs/Day Years [...] 1.8 - 2.4 mg/dl 08/10/2020 6:13 EDT [facility] 08/10/2020 5:35 EDT 08/10/2020 5:42 EDT Ester Valerio MD CHEMISTRY & BLOO D GAS ORDERABLES [facility] [address] [place] [address] * (ABNORMAL) BASIC METABOLIC PANEL (BMP) (08/10/2020 5:35 EDT) Sodium 133(L) 136 - 145 mEq/L 08/10/2020 6:13 EDT [facility] Potassium 3.4(L) 3.5 - 5.1 mEq/L 08/10/2020 6:13 EDT [facility] Chloride 98 96 - 107 mEq/L 08/10/2020 6:13 [facility] CO2 Total 27.2 21 - 32 mEq/L 08/10/2020 6:13 [facility] Anion Gap 7.8 mEq/L 08/10/2020 6:13 [facility] BUN 6(L) 7 - 25 mg/dl 08/10/2020 6:13 [facility] Creatinine 0.54(L) 0.70 - 1.30 mg/dl 08/10/2020 6:13 [facility] Estimated GFR >60 >60 08/10/2020 6:13 [facility] Comment: EGFR UNITS: mL/min/1.73 m 2 CKD-EPI Equation used to calculate. Glucose 86 74 - 106 mg/dl 08/10/2020 6:13 [facility] Calcium 7.7(L) 8.5 - 10.1 mg/dl 08/10/2020 6:13 [facility] 08/10/2020 5:35 EDT 08/10/2020 5:42 EDT Ester Valerio MD CHEMISTRY & BLOO D GAS ORDERABLES [facility] [address] [place] [address] * (ABNORMAL) HEPATIC FUNCTION PANEL (ALB,ALK PHOS,ALT,AST,DBIL,TOT BOSSMAN,TOT PROT) (08/10/2020 5:35 EDT) BILIRUBIN - PMC 0.90 0.00 - 1.00 mg/dl 08/10/2020 6:13 [facility] DIRECT BILIRUBIN - PMC 0.50(H) 0.00 - 0.30 mg/dl 08/10/2020 6:13 [facility] INDIRECT BILIRUBIN - PMC 0.40 0.00 - 0.80 mg/dl 08/10/2020 6:13 [facility] AST 50(H) 15 - 37 U/L 08/10/2020 6:13 [facility] ALT 37 16 - 63 U/L 08/10/2020 6:13 [facility] Alkaline Phosphatase 97 46 - 116 U/L 08/10/2020 6:13 [facility] Total Protein 6.1(L) 6.4 - 8.2 g/dl 08/10/2020 6:13 [facility] Albumin 2.3(L) 3.4 - 5.0 g/dl 08/10/2020 6:13 [facility] GLOBULIN - PMC 3.8 g/dl 08/10/2020 6:13 [facility] ALBUMIN/GLOBULIN RATIO - PMC 0.6 08/10/2020 6:13 [facility] 08/10/2020 5:35 EDT 08/10/2020 5:42 EDT Ester Valerio MD CHEMISTRY & BLOO D GAS ORDERABLES Performing Organization Address City/State/[facility] Co de Phone Number [facility] [address] [place] [address] * (ABNORMAL) COMPLETE BLOOD COUNT AND DIFFERENTIAL (08/10/2020 5:35 EDT) WBC 7.0 4.0 - 10.5 10 3/uL 08/10/2020 5:58 [facility] RBC 2.72(L) 4.70 - 6.00 10 6/uL 08/10/2020 5:58 [facility] Hemoglobin 9.7(L) 13.5 - 18.0 g/dL 08/10/2020 5:58 [facility] HCT 27.9(L) 42.0 - 52.0 % 08/10/2020 5:58 [facility] MCV 102.6(H) 78 - 100 fL 08/10/2020 5:58 [facility] MCH 35.7(H) 27 - 31 pg 08/10/2020 5:58 [facility] MCHC 34.8 32 - 37 g/dL 08/10/2020 5:58 [facility] RDW-CV - PMC 14.7 <14.7 % 08/10/2020 5:58 [facility] PLATELET COUNT - PMC 180 150 - 450 10 3/uL 08/10/2020 5:58 [facility] MPV 11.0 9.2 - 12.0 fL 08/10/2020 5:58 [facility] NEUTROPHILS % (AUTO) - PMC 65.5 % 08/10/2020 5:58 [facility] LYMPHOCYTES % (AUTO) - PMC 17.5 % 08/10/2020 5:58 [facility] MONOCYTES % (AUTO) - PMC 13.9 % 08/10/2020 5:58 [facility] EOSINOPHILS % (AUTO) - PMC 2.1 % 08/10/2020 5:58 [facility] BASOPHILS % (AUTO) - PMC 0.4 % 08/10/2020 5:58 [facility] Immature Granulocyte % (Auto) 0.6 % 08/10/2020 5:58 [facility] NUCLEATED RBC % (AUTO) - PMC 0.0 % 08/10/2020 5:58 [facility] NEUTROPHILS # (AUTO) - PMC 4.6 1.5 - 6.6 10 3/uL 08/10/2020 5:58 [facility] LYMPHOCYTES # (AUTO) - PMC 1.2 1.0 - 3.5 10 3/uL 08/10/2020 5:58 [facility] MONOCYTES # (AUTO) - PMC 1.0 <1.0 10 3/uL 08/10/2020 5:58 [facility] EOSINOPHILS # (AUTO) - PMC 0.2 <0.7 10 3/uL 08/10/2020 5:58 [facility] Absolute Immature Granulocyte 0.04 <0.06 10 3/uL 08/10/2020 5:58 [facility] DIFFERENTIAL METHOD Auto Differential 08/10/2020 5:44 [facility] 08/10/2020 5:35 EDT 08/10/2020 5:43 EDT Ester Valerio MD PACKAGES & DNA P ANETA ORDERABLES [facility] [address] [place] [address] documented in this encounter Visit Diagnoses Not on filedocumented in this encounter Care Teams Hospital Television Rental Clerk Relationship Specialty Start Date End Date Katia Stone, PABijalC [address] [place] [address] PCP - General 05/02/17 documented as of this encounter
--- OUTSIDE RECORDS SUMMARY | 2023-12-24 18:42 | XMS_ITS | Encounter Summary ---
Author Organization [facility] Address [address] [place] [address] Care Team Providers Care Quality Director Name Role Phone Katia Stone PA-C Primary Care Provider +1- [phone] Encounter Details Date Type Department Care Team (Late st Contact Info) Description 09/05/2020 Results Only [facility] [phone] Rowan Abad, TAIWO [address] [place] [phone] Social History Tobacco Use Types Packs/Day [...] Abad NP PACKAGES & DNA PROBE ORDERABLES [facility] [address] [place] [address] * MAGNESIUM (09/05/2020 14:30 EDT) Pathologist [facility] Magnesium 1.8 1.8 - 2.4 mg/dl 09/05/2020 14:57 [facility] 09/05/2020 14:3 0 EDT 09/05/2020 14:35 EDT Rowan Abad NP CHEMISTRY & BLOOD GA S ORDERABLES Performing Organization Address City/[facility] Co de Phone Number [facility] [address] [place] [address] * (ABNORMAL) BASIC METABOLIC PANEL (BMP) (09/05/2020 14:30 EDT) Pathologist [facility] Sodium 132(L) 136 - 145 mEq/L [...] 0 EDT 09/05/2020 14:35 EDT Rowan Abad LINSEED OIL ORDER FILLER CHEMISTRY & BLOOD GA S ORDERABLES [facility] [address] [place] [address] documented in this encounter Visit Diagnoses Not on filedocumented in this encounter Care Teams Quality Director Relationship Specialty Start Date End Date Katia Stone, PABijalC [address] [place] [phone] PCP - General 05/02/17 documented as of this encounter
--- OUTSIDE RECORDS SUMMARY | 2023-12-24 18:42 | XMS_ITS | Encounter Summary ---
Author Organization [facility] Address [address] [place] [address] Care Team Providers Care Cash Manager Name Role Phone Katia Stone PA-C Primary Care Provider +1- [phone] Encounter Details Date Type Department Care Team (Late st Contact Info) Description 09/14/2020 Results Only [facility] [phone] Rowan Abad, TAIWO [address] [place] [phone] Social History Tobacco Use Types Packs/Day [...] - 450 10 3/uL 09/14/2020 6:07 EDT [facility] 09/14/2020 5:35 EDT 09/14/2020 5:46 EDT Narrative [facility] - 09/14/2020 6:16 EDT Comment ENOXAPARIN MONITORING Rowan Abad NP HEMATOLOGY & PF4 ORD ERABLES Performing Organization Address City/State/[facility] Co de Phone Number [facility] [address] [place] [address] * (ABNORMAL) CREATININE WITH GFR - PMC (09/14/2020 5:35 EDT) Creatinine 0.58(L) 0.70 - 1.30 mg/dl 09/14/2020 6:09 EDT [facility] Estimated GFR >60 >60 09/14/2020 6:09 T [facility] Comment: EGFR UNITS: mL/min/1.73 m 2 CKD-EPI Equation used to calculate. 09/14/2020 5:35 EDT 09/14/2020 5:46 EDT Rowan Abad NP CHEMISTRY & BLOOD GA S ORDERABLES [facility] [address] [place] [address] documented in this encounter Visit Diagnoses Not on filedocumented in this encounter Care Teams Cash Manager Relationship Specialty Start Date End Date Katia Stone, MNIGO [address] [place] [phone] PCP - General 05/02/17 documented as of this encounter
--- OUTSIDE RECORDS SUMMARY | 2023-12-24 18:42 | XMS_ITS | Encounter Summary ---
Author Organization [facility] Address [address] [place] [address] Care Team Providers Care Software Applications Developer Name Role Phone Katia Stone PA-C Primary Care Provider +1- [phone] Encounter Details Date Type Department Care Team (Late st Contact Info) Description 03/13/2022 Lab Requisition [facility] Pathology & Laboratory Medicine - [address] [address] Outr Resulting Lab, Provider Social History Tobacco [...] Antigen Detection Negative Negative 03/13/2022 21:38 EST [facility] Urine URINE / Unknown 03/12/2022 1 9:15 EST 03/13/2022 17:44 EST Provider Outr Resulting Lab MICROBIOLOGY - GENERAL ORDERABLES Performing Organization Address City/State/[facility] Co de Phone Number [facility] [address] [place] [address] documented in this encounter Visit Diagnoses Not on filedocumented in this encounter Care Teams Software Applications Developer Relationship Specialty Start Date End Date Katia Stone, PABijalC [address] [place] [address] PCP - General 05/02/17 documented as of this encounter
--- OUTSIDE RECORDS SUMMARY | 2023-12-24 18:42 | XMS_ITS | Encounter Summary ---
Author Organization [facility] Address [address] [place] [address] Care Team Providers Care Restoration Silversmith Name Role Phone Katia Stone PA-C Primary Care Provider +1- [phone] Encounter Details Date Type Department Care Team (Late st Contact Info) Description 06/21/2021 Lab Requisition [facility] Pathology & Laboratory Medicine - [address] [address] Virginia Price, DO [address] [place] [address] Acute cholecystitis Social History Tobacco Use Types [...] gallbladder or free-floating within the container. Two vendor representatives sections and the en face cystic duct margin are submitted in A1. GIRISH GOMEZ(ASCP) 06/22/2021 7:58 06/26/2021 10:43 EDT [facility] Resident/Emile w: Chayo Chatman MD 06/26/2021 10:43 EDT [facility] Performing Lab [facility] 06/26/2021 10:43 EDT [facility] Scanned Images 06/26/2021 10:43 EDT [facility] Tissue ENTIRE GALLBLADDER / Unknown 06/21/2021 11:58 EDT 06/21/2021 17:30 EDT Virginia Price DO PATHOLOGY ORDERABLES [facility] [address] [place] [address] documented in this encounter Visit Diagnoses Diagnosis Acute cholecystitis documented in this encounter Additional Health Concerns Infection Onset Date Last Indicated Resolved Time RSV 01/31/2022 01/31/2022 02/10/2022 22:1 5 EST documented as of this encounter Care Teams Restoration Silversmith Relationship Specialty Start Date End Date Katia Stone, MINGO [address] [place] [phone] PCP - General 05/02/17 documented as of this encounter
--- OUTSIDE RECORDS SUMMARY | 2023-12-24 18:42 | XMS_ITS | Encounter Summary ---
Author Organization [facility] Address [address] [place] [address] Care Team Providers Care Picked Edge Sewing Machine Operator Name Role Phone Katia Stone PA-C Primary Care Provider +1- [phone] Encounter Details Date Type Department Care Team (Late st Contact Info) Description 08/29/2020 Results Only [facility] [phone] Rowan Abad, TAIWO [address] [place] [phone] Social History Tobacco Use Types Packs/Day [...] 0.70 - 1.30 mg/dl 08/29/2020 5:41 EDT [facility] Estimated GFR >60 >60 08/29/2020 5:41 EDT [facility] Comment: EGFR UNITS: mL/min/1.73 m 2 CKD-EPI Equation used to calculate. 08/29/2020 5:05 EDT 08/29/2020 5:23 EDT Rowan Abad NP CHEMISTRY & BLOOD GA S ORDERABLES Performing Organization Address City/[facility]/ZIP Co de Phone Number [facility] [address] [place] [address] * PLATELET COUNT (08/29/2020 5:05 EDT) PLATELET COUNT - [facility] 324 150 - 450 10 3/uL 08/29/2020 5:39 EDT [facility] 08/29/2020 5:05 EDT 08/29/2020 5:23 EDT Narrative [facility] - 08/29/2020 5:41 EDT Comment ENOXAPARIN MONITORING Rowan Abad NP HEMATOLOGY & PF4 ORD ERABLES [facility] [address] [place] [address] documented in this encounter Visit Diagnoses Not on filedocumented in this encounter Care Teams Picked Edge Sewing Machine Operator Relationship Specialty Start Date End Date Katia Stone, MINGO [address] [place] [phone] PCP - General 05/02/17 documented as of this encounter
--- OUTSIDE RECORDS SUMMARY | 2023-12-24 18:42 | XMS_ITS | Encounter Summary ---
Author Organization [facility] Address [address] [place] [address] Care Team Providers Care Tool Engineer Name Role Phone Katia Stone PA-C Primary Care Provider +1- [phone] Encounter Details Date Type Department Care Team (Late st Contact Info) Description 08/25/2020 Results Only [facility] [phone] Rowan Abad, TAIWO [address] [place] [phone] Social History Tobacco Use Types Packs/Day [...] Diagnosis Comments ORGANISM ID FROM PLATE - [facility] Routine 08/25/2020 14:15 EDT HSV (HERPES SIMPLEX VIRUS) MOLECULAR DETECTION, PCR Routine 08/25/2020 14:15 EDT CREATININE WITH GFR - PMC Routine 08/25/2020 6:09 EDT PLATELET COUNT Routine 08/25/2020 6:09 EDT documented in this encounter Results * (ABNORMAL) ORGANISM ID FROM PLATE - PMC (08/25/2020 14:15 EDT) GRAM SMEAR - PMC SEE NOTES(A) 08/27/2020 17:20 EDT [facility] Comment: RESULT: Few Neutrophils Present No bacteria seen SWATI RESULTS/ORGANISM ID - [facility] Few Usual skin jesi 08/27/2020 17:20 EDT [facility] Comment: Spec Description ?? Additional Information:: LEFT ARM Source:ARM [place] [id number] 08/25/2020 14:1 5 EDT 08/25/2020 14:34 EDT Narrative [facility] - 08/27/2020 17:20 EDT ARM LEFT ARM Rowan Abad NP MICROBIOLOGY - GENER AL ORDERABLES [facility] [address] [place] [address] * HERPES SIMPLEX VIRUS MOLECULAR DETECTION, PCR (08/25/2020 14:15 EDT) HERPES SIMPLEX VIRUS I DNA - PMC Negative Negative 08/26/2020 17:21 EDT [facility] HERPES SIMPLEX VIRUS 2 DNA - PMC Negative Negative 08/26/2020 19:39 EDT [facility] Comment: SOURCE:: ARM Spec Description ?? Additional Information:: LEFT ARM Source:LEFT ARM Test [place] [id number] 08/25/2020 14:1 5 EDT 08/25/2020 14:[address] [facility] - 08/26/2020 19:39 EDT ARM LEFT ARM Rowan Abad NP MICROBIOLOGY - GENER AL ORDERABLES Performing Organization Address [facility] Co de Phone Number [facility] [address] [place] [address] * (ABNORMAL) CREATININE WITH GFR - PMC (08/25/2020 6:09 EDT) Pathologist [facility] Creatinine 0.60(L) 0.70 - 1.30 mg/dl 08/25/2020 7:10 EDT [facility] Estimated GFR >60 >60 08/25/2020 7:10 EDT [facility] Comment: EGFR UNITS: mL/min/1.73 m 2 CKD-EPI Equation used to calculate. 08/25/2020 6:09 EDT 08/25/2020 6:44 EDT Rowan Abad NP CHEMISTRY & BLOOD GA S ORDERABLES Performing Organization Address City/[facility]/ZIP Co de Phone Number [facility] [address] [place] [address] * PLATELET COUNT (08/25/2020 6:09 EDT) [facility] PLATELET COUNT - [facility] 326 150 - 450 10 3/uL 08/25/2020 7:02 EDT [facility] 08/25/2020 6:09 EDT 08/25/2020 6:[address] [facility] - 08/25/2020 7:06 EDT Comment ENOXAPARIN MONITORING Rowan Abad FULL STACK NET DEVELOPER HEMATOLOGY & PF4 ORD ERABLES [facility] [address] [place] [address] documented in this encounter Visit Diagnoses Not on filedocumented in this encounter Care Teams Tool Engineer Relationship Specialty Start Date End Date Katia Stone, MINGO [address] [facility] [place] [place] [phone] PCP - General 05/02/17 documented as of this encounter
--- OUTSIDE RECORDS SUMMARY | 2023-12-24 18:42 | XMS_ITS | Encounter Summary ---
Author Organization [facility] Address [address] [place] [address] Care Team Providers Care Certified Alcohol Counselor Name Role Phone Katia Stone PA-C Primary Care Provider +1- [phone] Encounter Details Date Type Department Care Team (Late st Contact Info) Description 08/13/2020 Lab Requisition [facility] Pathology & Laboratory Medicine - [address] [address] Outr Resulting Lab, Provider Social History Tobacco [...] ova and parasites seen. 08/14/2020 11:44 EDT [facility] Feces SPECIMEN FROM RECTUM / Unknown 08/11/2020 14:50 EDT 08/13/2020 15:22 EDT Narrative [facility] - 08/14/2020 11:44 EDT (If Cryptosporidium, Cyclospora, or Microsporidium are suspected, specific tests must be requested.) Single negative specimen does not rule out the possibility of a parasitic infection. Provider Outr Resulting Lab MICROBIOLOGY - GENERAL ORDERABLES [facility] [address] [place] [address] documented in this encounter Visit Diagnoses Not on filedocumented in this encounter Additional Health Concerns Infection Onset Date Last Indicated Resolved Time RSV 01/31/2022 01/31/2022 02/10/2022 22:1 5 EST documented as of this encounter Care Teams Certified Alcohol Counselor Relationship Specialty Start Date End Date Katia Stone, PABijalC [address] [place] [phone] PCP - General 05/02/17 documented as of this encounter
--- OUTSIDE RECORDS SUMMARY | 2023-12-24 18:42 | XMS_ITS | Encounter Summary ---
Author Organization [facility] Address [address] [place] [address] Care Team Providers Care Lamination Inspector Name Role Phone Katia Stone PA-C Primary Care Provider +1- [phone] Encounter Details Date Type Department Care Team (Late st Contact Info) Description 09/10/2020 Results Only [facility] [phone] Rowan Abad, TAIWO [address] [place] [phone] Social History Tobacco Use Types Packs/Day [...] - 450 10 3/uL 09/10/2020 6:29 EDT [facility] 09/10/2020 5:40 EDT 09/10/2020 6:11 EDT Narrative [facility] - 09/10/2020 6:49 EDT Comment ENOXAPARIN MONITORING Rowan Abad NP HEMATOLOGY & PF4 ORD ERABLES Performing Organization Address City/State/[facility] Co de Phone Number [facility] [address] [place] [address] * (ABNORMAL) CREATININE WITH GFR - PMC (09/10/2020 5:40 EDT) Pathologist [facility] Creatinine 0.57(L) 0.70 - 1.30 mg/dl 09/10/2020 6:42 EDT [facility] Estimated GFR >60 >60 09/10/2020 6:42 EDT [facility] Comment: EGFR UNITS: mL/min/1.73 m 2 CKD-EPI Equation used to calculate. 09/10/2020 5:40 EDT 09/10/2020 6:11 EDT Rowan Abad NP CHEMISTRY & BLOOD GA S ORDERABLES [facility] [address] [place] [address] documented in this encounter Visit Diagnoses Not on filedocumented in this encounter Care Teams Lamination Inspector Relationship Specialty Start Date End Date Katia Stone, MINGO [address] [place] [phone] PCP - General 05/02/17 documented as of this encounter
--- OUTSIDE RECORDS SUMMARY | 2023-12-24 18:42 | XMS_ITS | Referral Summary ---
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 3830 Selectsecure Mri Surescan - [id number] Implanted:05/21 (Quantity not on file) Lead Medtronic 3830 SELECTSECURE MRI SURESCAN / [id number] / Description:Implant record l oaded by IMP Chronicles import. L111 Essentio Mri - [id number] Implanted:05/02 (Quantity not on file) Pacemaker [employer] L111 ESSENTIO MRI / [id number] / Description:Implant record l oaded by IMP Chronicles import. Advance Directives For more information, please contact: [phone] * Full Code (Latest Code Status on [...] the discussion? Not Discusse d Care Teams Plastics Seasoner Operator Relationship Specialty Start Date End Date Katia Stone PA-C [address] [place] [phone] [facility] - General 05/02/17
--- OUTSIDE RECORDS SUMMARY | 2023-12-24 18:42 | XMS_ITS | Encounter Summary ---
Author Organization [facility] Address [address] [place] [address] Care Team Providers Care Glass Blowing Instructor Name Role Phone Katia Stone PA-C Primary Care Provider +1- [phone] Encounter Details Date Type Department Care Team (Late st Contact Info) Description 09/06/2020 Results Only [facility]- [facility] [phone] Rowan Abad, TAIWO [address] [place] [phone] Social History Tobacco Use Types Packs/Day [...] Pathologist [facility] PLATELET COUNT - [facility] 236 150 - 450 10 3/uL 09/06/2020 5:55 EDT [facility] 09/06/2020 5:05 EDT 09/06/2020 5:32 EDT Narrative [facility] - 09/06/2020 5:58 EDT Comment ENOXAPARIN MONITORING Rowan Abad NP HEMATOLOGY & PF4 ORD ERABLES Performing Organization Address City/State/[facility] Co de Phone Number [facility] [address] [place] [address] * (ABNORMAL) CREATININE WITH GFR - PMC (09/06/2020 5:05 EDT) Pathologist [facility] Creatinine 0.60(L) 0.70 - 1.30 mg/dl 09/06/2020 5:52 EDT [facility] Estimated GFR >60 >60 09/06/2020 5:52 EDT [facility] Comment: EGFR UNITS: mL/min/1.73 m 2 CKD-EPI Equation used to calculate. 09/06/2020 5:05 EDT 09/06/2020 5:32 EDT Rowan Abad NP CHEMISTRY & BLOOD GA S ORDERABLES [facility] [address] [place] [address] documented in this encounter Visit Diagnoses Not on filedocumented in this encounter Care Teams Glass Blowing Instructor Relationship Specialty Start Date End Date Katia Stone, MINGO [address] [place] [phone] PCP - General 05/02/17 documented as of this encounter
--- OUTSIDE RECORDS SUMMARY | 2023-12-24 18:42 | XMS_ITS | Encounter Summary ---
Author Organization [facility] Address [address] [place] [address] Care Team Providers Care Supervisor Air Conditioning Installer Name Role Phone Katia Stone PA-C Primary Care Provider +1- [phone] Encounter Details Date Type Department Care Team (Late st Contact Info) Description 02/01/2022 Lab Requisition [facility] Pathology & Laboratory Medicine - [address] [address] Outr Resulting Lab, Provider Social History Tobacco [...] Result (FLARES) Negative Negative 02/02/2022 1:45 EST [facility] FLU B RNA Result (FLBRES) Negative Negative 02/02/2022 1:45 EST [facility] RSV RNA Result (RSVRES) Positive(A) Negative 02/02/2022 1:45 EST [facility] Swab ENTIRE NASOPHARYNX / Unknown 01/31/2022 9:47 EST 02/01/2022 20:34 EST Provider Outr Resulting Lab MICROBIOLOGY - GENERAL ORDERABLES Performing Organization Address City/State/[facility] Co de Phone Number [facility] [address] [place] [address] documented in this encounter Visit Diagnoses Not on filedocumented in this encounter Additional Health Concerns Infection Onset Date Last Indicated Resolved Time RSV 01/31/2022 01/31/2022 02/10/2022 22:1 5 EST documented as of this encounter Care Teams Supervisor Air Conditioning Installer Relationship Specialty Start Date End Date Katia Stone, PABijalC [address] [facility] [place] [place] [phone] PCP - General 05/02/17 documented as of this encounter
--- OUTSIDE RECORDS SUMMARY | 2023-12-24 18:42 | XMS_ITS | Encounter Summary ---
Author Organization [facility] Address [address] [place] [address] Care Team Providers Care Boiler Room Helper Name Role Phone Katia Stone PA-C Primary Care Provider +1- [phone] Encounter Details Date Type Department Care Team (Late st Contact Info) Description 08/11/2020 Results Only [facility] [address] [place] [address] Jayesh Olmos MD [address] [place] [address] Social History Tobacco Use Types [...] - PMC SEE NOTES 021 15:34 EDT [facility] Comment: RESULT: No ova and parasites seen. Source:stool (If Cryptosporidium, Cyclospora, or Microsporidium are suspected, specific tests must be requested.) Single negative specimen does not rule out the possibility of a parasitic infection. Test performed [place] [address] 08/11/2020 14:5 0 EDT 08/12/2020 14:54 EDT Narrative [facility] - 08/14/2020 15:34 EDT stool Jayesh Olmos MD MICROBIOLOGY - GENERAL ORDERABLES [facility] [address] [place] [address] * FECAL BACTERIAL PATHOGENS BY PCR (08/11/2020 14:50 EDT) Salmonella PCR Negative Negative 08/13/2020 19:57 EDT [facility] Shigella/Enteroin vasive E. coli Negative Negative 08/13/2020 19:57 EDT [facility] HN LAB CAMPYLOBACTER PCR Negative Negative 08/13/2020 19:57 EDT [facility] Shiga Toxin PCR Negative Negative 1 7:29 EDT [facility] Comment: Test performed or referred by The [address] [address] 08/11/2020 14:5 0 EDT 08/12/2020 14:53 EDT Jayesh Olmos MD MICROBIOLOGY - GENERAL ORDERABLES Performing Organization Address City/State/[facility] Co de Phone Number [facility] [address] [place] [address] documented in this encounter Visit Diagnoses Not on filedocumented in this encounter Care Teams Boiler Room Helper Relationship Specialty Start Date End Date Katia Stone, BELLAC [address] [place] [address] PCP - General 05/02/17 documented as of this encounter
--- OUTSIDE RECORDS SUMMARY | 2023-12-24 18:42 | XMS_ITS | Encounter Summary ---
Author Organization [facility] Address [address] [place] [address] Care Team Providers Care Machine Welder Name Role Phone Katia Stone PA-C Primary Care Provider +1- [phone] Encounter Details Date Type Department Care Team (Late st Contact Info) Description 08/11/2020 Results Only [facility] Rheumatology [address] [place] [address] Ester Valerio MD [address] [facility] [address] [place] [phone] Social History Tobacco Use Types Packs/Day Years [...] 1.8 - 2.4 mg/dl 08/11/2020 6:07 EDT [facility] 08/11/2020 5:25 EDT 08/11/2020 5:39 EDT Ester Valerio MD CHEMISTRY & BLOO D GAS ORDERABLES Performing Organization Address City/State/[facility] Co de Phone Number [facility] [address] [place] [address] * (ABNORMAL) BASIC METABOLIC PANEL (BMP) (08/11/2020 5:25 EDT) Sodium 132(L) 136 - 145 mEq/L 08/11/2020 6:07 EDT [facility] Potassium 3.5 3.5 - 5.1 mEq/L 08/11/2020 6:07 T [facility] Chloride 99 96 - 107 mEq/L 08/11/2020 6:07 EDT [facility] CO2 Total 28.6 21 - 32 mEq/L 08/11/2020 6:07 [facility] Anion Gap 4.4 mEq/L 08/11/2020 6:07 [facility] BUN 5(L) 7 - 25 mg/dl 08/11/2020 6:07 [facility] Creatinine 0.51(L) 0.70 - 1.30 mg/dl 08/11/2020 6:07 [facility] Estimated GFR >60 >60 08/11/2020 6:07 [facility] Comment: EGFR UNITS: mL/min/1.73 m 2 CKD-EPI Equation used to calculate. Glucose 112(H) 74 - 106 mg/dl 08/11/2020 6:07 [facility] Calcium 7.7(L) 8.5 - 10.1 mg/dl 08/11/2020 6:07 [facility] 08/11/2020 5:25 EDT 08/11/2020 5:39 EDT Ester Valerio MD CHEMISTRY & BLOO D GAS ORDERABLES [facility] [address] [place] [address] * (ABNORMAL) HEPATIC FUNCTION PANEL (ALB,ALK PHOS,ALT,AST,DBIL,TOT BOSSMAN,TOT PROT) (08/11/2020 5:25 EDT) BILIRUBIN - PMC 0.70 0.00 - 1.00 mg/dl 08/11/2020 6:07 [facility] DIRECT BILIRUBIN - PMC 0.30 0.00 - 0.30 mg/dl 08/11/2020 6:07 [facility] INDIRECT BILIRUBIN - PMC 0.40 0.00 - 0.80 mg/dl 08/11/2020 6:07 [facility] AST 39(H) 15 - 37 U/L 08/11/2020 6:07 [facility] ALT 30 16 - 63 U/L 08/11/2020 6:07 [facility] Alkaline Phosphatase 95 46 - 116 U/L 08/11/2020 6:07 EDT [facility] Total Protein 6.1(L) 6.4 - 8.2 g/dl 08/11/2020 6:07 T [facility] Albumin 2.2(L) 3.4 - 5.0 g/dl 08/11/2020 6:07 EDT [facility] GLOBULIN - PMC 3.9 g/dl 08/11/2020 6:07 EDT [facility] ALBUMIN/GLOBULIN RATIO - PMC 0.5 08/11/2020 6:07 EDT [facility] 08/11/2020 5:25 EDT 08/11/2020 5:39 EDT Ester Valerio MD CHEMISTRY & BLOO D GAS ORDERABLES [facility] [address] [place] [address] documented in this encounter Visit Diagnoses Not on filedocumented in this encounter Care Teams Machine Welder Relationship Specialty Start Date End Date Katia Stone, BELLAC [address] [place] [phone] PCP - General 05/02/17 documented as of this encounter
--- OUTSIDE RECORDS SUMMARY | 2023-12-24 18:42 | XMS_ITS | Encounter Summary ---
Author Organization [facility] Address [address] [place] [address] Care Team Providers Care Industrial Staff Nurse Name Role Phone Katia Stone PA-C Primary Care Provider +1- [phone] Encounter Details Date Type Department Care Team (Late st Contact Info) Description 08/16/2020 Results Only [facility] [address] [place] [address] Junior Ray MD [address] [place] [address] Social History Tobacco Use Types [...] 137 136 - 145 mEq/L 08/16/2020 5:50 [facility] Potassium 3.5 3.5 - 5.1 mEq/L 08/16/2020 5:50 [facility] Chloride 103 96 - 107 mEq/L 08/16/2020 5:50 [facility] CO2 Total 28.1 21 - 32 mEq/L 08/16/2020 5:50 [facility] Anion Gap 5.9 mEq/L 08/16/2020 5:50 [facility] BUN 14 7 - 25 mg/dl 08/16/2020 5:50 [facility] Creatinine 0.57(L) 0.70 - 1.30 mg/dl 08/16/2020 5:50 [facility] Estimated GFR >60 >60 08/16/2020 5:50 [facility] Comment: EGFR UNITS: mL/min/1.73 m 2 CKD-EPI Equation used to calculate. Glucose 86 74 - 106 mg/dl 08/16/2020 5:50 [facility] Calcium 8.0(L) 8.5 - 10.1 mg/dl 08/16/2020 5:50 [facility] 08/16/2020 5:20 EDT 08/16/2020 5:29 EDT Junior Ray MD CHEMISTRY & BLOOD G ORDERABLES Performing Organization Address City/[facility]/ZIP Co de Phone Number [facility] [address] [place] [address] * (ABNORMAL) COMPLETE BLOOD COUNT (08/16/2020 5:20 EDT) Pathologist [facility] WBC 5.0 4.0 - 10.5 10 3/uL 08/16/2020 5:46 EDT [facility] RBC 2.65(L) 4.70 - 6.00 10 6/uL 08/16/2020 5:46 [facility] Hemoglobin 9.3(L) 13.5 - 18.0 g/dL 08/16/2020 5:46 [facility] HCT 27.3(L) 42.0 - 52.0 % 08/16/2020 5:46 [facility] MCV 103.0(H) 78 - 100 fL 08/16/2020 5:46 [facility] MCH 35.1(H) 27 - 31 pg 08/16/2020 5:46 [facility] MCHC 34.1 32 - 37 g/dL 08/16/2020 5:46 [facility] RDW-CV - PMC 15.1(H) <14.7 % 08/16/2020 5:46 [facility] PLATELET COUNT - PMC 202 150 - 450 10 3/uL 08/16/2020 5:46 [facility] MPV 10.1 9.2 - 12.0 fL 08/16/2020 5:46 [facility] 08/16/2020 5:20 EDT 08/16/2020 5:29 EDT Junior Ray MD HEMATOLOGY & PF4 OR DERABLES [facility] [address] [place] [address] documented in this encounter Visit Diagnoses Not on filedocumented in this encounter Care Teams Industrial Staff Nurse Relationship Specialty Start Date End Date Katia Stone, PABijalC [address] [place] [phone] PCP - General 05/02/17 documented as of this encounter
--- OUTSIDE RECORDS SUMMARY | 2023-12-24 18:42 | XMS_ITS | Encounter Summary ---
Author Organization [facility] Address [address] [place] [address] Care Team Providers Care Groundman/Lineman Name Role Phone Katia Stone PA-C Primary Care Provider +1- [phone] Encounter Details Date Type Department Care Team (Late st Contact Info) Description 06/23/2021 Lab Requisition [facility] Pathology & Laboratory Medicine - [address] [address] Outr Resulting Lab, Provider Social History Tobacco [...] Urine 509 150-1,150 mOsm/kg 06/23/2021 21:58 EDT [facility] Urine URINE SPECIMEN COLLECTION, CLEAN CATCH / Unknown 06/23/2021 4:00 EDT 06/23/2021 21:40 EDT Provider Outr Resulting Lab URINALYSIS O RDERABLES [facility] [address] [place] [address] documented in this encounter Visit Diagnoses Not on filedocumented in this encounter Additional Health Concerns Infection Onset Date Last Indicated Resolved Time RSV 01/31/2022 01/31/2022 02/10/2022 22:1 5 EST documented as of this encounter Care Teams Groundman/Lineman Relationship Specialty Start Date End Date Katia Stone, BELLAC [address] [place] [phone] PCP - General 05/02/17 documented as of this encounter
--- OUTSIDE RECORDS SUMMARY | 2023-12-24 18:42 | XMS_ITS | Encounter Summary ---
Author Organization [facility] Address [address] [place] [address] Care Team Providers Care Dependency Case Manager Name Role Phone Katia Stone PA-C Primary Care Provider +1- [phone] Encounter Details Date Type Department Care Team (Late st Contact Info) Description 08/14/2020 Results Only [facility] [address] [place] [address] Jayesh Olmos MD [address] [place] [address] Social History Tobacco Use Types [...] 1.8 - 2.4 mg/dl 08/14/2020 6:19 EDT [facility] 08/14/2020 5:03 EDT 08/14/2020 5:51 EDT Jayesh Olmos MD CHEMISTRY & BLO OD GAS ORDERABLES [facility] [address] [place] [address] * (ABNORMAL) COMPREHENSIVE METABOLIC PANEL (CMP) (08/14/2020 5:03 EDT) Sodium 138 136 - 145 mEq/L 08/14/2020 6:19 EDT [facility] Potassium 3.6 3.5 - 5.1 mEq/L 08/14/2020 6:19 [facility] Chloride 103 96 - 107 mEq/L 08/14/2020 6:19 T [facility] CO2 Total 28.4 21 - 32 mEq/L 08/14/2020 6:19 T [facility] Anion Gap 6.6 [...] MD CHEMISTRY & BLO OD GAS ORDERABLES [facility] [address] [place] [address] * (ABNORMAL) COMPLETE BLOOD COUNT AND DIFFERENTIAL [...] 08/14/2020 5:03 EDT 08/14/2020 5:51 EDT Narrative [facility] - 08/14/2020 6:11 EDT Comment ENOXAPARIN MONITORING Jayesh Olmos MD PACKAGES & DNA PROBE ORDERABLES [facility] [address] [place] [address] documented in this encounter Visit Diagnoses Not on filedocumented in this encounter Care Teams Dependency Case Manager Relationship Specialty Start Date End Date Katia Stone, PABijalC [address] [place] [phone] PCP - General 05/02/17 documented as of this encounter
--- OUTSIDE RECORDS SUMMARY | 2023-12-24 18:42 | XMS_ITS | Encounter Summary ---
Author Organization [facility] Address [address] [place] [address] Care Team Providers Care Interventional Sale Consultant Name Role Phone Katia Stone PA-C Primary Care Provider +1- [phone] Encounter Details Date Type Department Care Team (Late st Contact Info) Description 09/02/2020 Results Only [facility] [phone] Rowan Abad, TAIWO [address] [place] [address] Social History Tobacco Use Types Packs/Day [...] 0.70 - 1.30 mg/dl 09/02/2020 7:12 EDT [facility] Estimated GFR >60 >60 09/02/2020 7:12 EDT [facility] Comment: EGFR UNITS: mL/min/1.73 m 2 CKD-EPI Equation used to calculate. 09/02/2020 6:18 EDT 09/02/2020 6:44 EDT Rowan Abad NP CHEMISTRY & BLOOD GA S ORDERABLES Performing Organization Address City/[facility]/ZIP Co de Phone Number [facility] [address] [place] [address] * PLATELET COUNT (09/02/2020 6:18 EDT) PLATELET COUNT - [facility] 247 150 - 450 10 3/uL 09/02/2020 6:57 EDT [facility] 09/02/2020 6:18 EDT 09/02/2020 6:44 EDT Narrative [facility] - 09/02/2020 7:06 EDT Comment ENOXAPARIN MONITORING Rowan Abad NP HEMATOLOGY & PF4 ORD ERABLES [facility] [address] [place] [address] documented in this encounter Visit Diagnoses Not on filedocumented in this encounter Care Teams Interventional Sale Consultant Relationship Specialty Start Date End Date Katia Stone, MINGO [address] [place] [phone] PCP - General 05/02/17 documented as of this encounter
--- OUTSIDE RECORDS SUMMARY | 2023-12-24 18:42 | XMS_ITS | Encounter Summary ---
Author Organization [facility] Address [address] [place] [address] Care Team Providers Care Health Screener Name Role Phone Katia Stone PA-C Primary Care Provider +1- [phone] Encounter Details Date Type Department Care Team (Late st Contact Info) Description 08/20/2020 Results Only [facility] [address] [place] [address] Marilyn Hood MD [address] [place] [address] Social History Tobacco Use Types [...] Requests ADD ON DONE 08/20/2020 12:58 EDT [facility] Comment: All tests (see tests in sample comments) have been added as requested. 08/20/2020 12:5 1 EDT 08/20/2020 12:58 EDT Narrative [facility] - 08/20/2020 12:58 EDT today on the med/surg Magnesium Marilyn Hood MD CHEMISTRY & BLO OD GAS ORDERABLES Performing Organization Address City/State/[facility] Co de Phone Number [facility] [address] [place] [address] documented in this encounter Visit Diagnoses Not on filedocumented in this encounter Care Teams Health Screener Relationship Specialty Start Date End Date Katia Stone, PABijalC [address] [facility] [place] [facility] [place] [phone] PCP - General 05/02/17 documented as of this encounter
--- OUTSIDE RECORDS SUMMARY | 2023-12-24 18:42 | XMS_ITS | Encounter Summary ---
Author Organization [facility] Address [address] [place] [address] Care Team Providers Care Marine Service Manager Name Role Phone Katia Stone PA-C Primary Care Provider +1- [phone] Reason for Visit * Reason Onset Date Comments Discuss Possible Transfer 06/20/2021 Encounter Details Date Type Department Care Team (Late st Contact Info) Description 06/20/2021 Telephone [facility] [address] [place], [place] [phone] Amos Romero MD [address] [address] Discuss Possible Transfer Social History [...] 06/20/2021 1415 EDT PPS Call Requesting Facility: [facility] Requesting Provider: Dr. Alegria Date: 06/20/21 Time [...] effusion (per read from imaging 08/08/20 from [facility], this is chronic) and R iliac + [...] on filedocumented in this encounter Care Teams Marine Service Manager Relationship Specialty Start Date End Date Katia Stone, PABijalC [address] [place] [phone] PCP - General 05/02/17 documented as of this encounter
--- OUTSIDE RECORDS SUMMARY | 2023-12-24 18:42 | XMS_ITS | Encounter Summary ---
Author Organization [facility] Address [address] [place] [address] Care Team Providers Care Cell Stripper Final Name Role Phone Katia Stone PA-C Primary Care Provider +1- [phone] Encounter Details Date Type Department Care Team (Late st Contact Info) Description 08/13/2020 Lab Requisition [facility] Pathology & Laboratory Medicine - [address] [address] Outr Resulting Lab, Provider Social History Tobacco [...] Salmonella PCR Negative Negative 08/13/2020 19:51 EDT [facility] Shigella/Enteroin vasive E. coli Negative Negative 08/13/2020 19:51 EDT [facility] HN LAB CAMPYLOBACTER PCR Negative Negative 08/13/2020 19:51 EDT [facility] Shiga Toxin PCR Negative Negative 19:51 EDT [facility] Feces SPECIMEN FROM RECTUM / Unknown 08/11/2020 14:50 EDT 08/13/2020 15:22 EDT Provider Outr Resulting Lab MICROBIOLOGY - GENERAL ORDERABLES [facility] [address] [place] [address] documented in this encounter Visit Diagnoses Not on filedocumented in this encounter Additional Health Concerns Infection Onset Date Last Indicated Resolved Time RSV 01/31/2022 01/31/2022 02/10/2022 22:1 5 EST documented as of this encounter Care Teams Cell Stripper Final Relationship Specialty Start Date End Date Katia Stone, PABijalC [address] [place] [phone] PCP - General 05/02/17 documented as of this encounter
--- OUTSIDE RECORDS SUMMARY | 2023-12-24 18:42 | XMS_ITS | Encounter Summary ---
Author Organization [facility] Address [address] [place] [address] Care Team Providers Care Locator Name Role Phone Katia Stone PA-C Primary Care Provider +1- [phone] Encounter Details Date Type Department Care Team (Late st Contact Info) Description 08/09/2020 Results Only Imaging [facility] Radiology Results [address] [place], [place] [address] Ester Valerio MD [address] [place] [address] [place] [address] Social History Tobacco Use Types [...] 8:33 EDT Narrative 08/09/2020 16:38 EDT ?[facility]: [facility] ?[address] ?[place] [address] ?Diagnostic Imaging Report ? Signed ? Patient Name:DAVID FARFAN ? Date of :1950 ?MR Number:[id number] ? Age:69 ?Sex:M ? Category: CR ?Date [...] Procedure Note Poncho Erickson MD - [facility] [address] [address] Diagnostic Imaging Report Signed Patient Name:DAVID FARFAN FAccount Number:[id number] Date of :1950 MRNumber:[id number] Age:69 Sex:M Category: CR Date ofExam:08/09/20 Procedure: CR: Abd; 2 ViewsAccession: [id number] Ordering Physician: Ester Valerio MD Patient CC: [...] documented as of this encounter Care Teams Locator Relationship Specialty Start Date End Date Katia Stone PA-C [address] [place] [address] PCP - General 05/02/17 documented as of this encounter
--- OUTSIDE RECORDS SUMMARY | 2023-12-24 18:42 | XMS_ITS | Encounter Summary ---
Author Organization [facility] Address [address] [place] [address] Care Team Providers Care Asphalt Screed Operator Name Role Phone Katia Stone PA-C Primary Care Provider +1- [phone] Encounter Details Date Type Department Care Team (Late st Contact Info) Description 08/17/2023 Lab Requisition [facility] Pathology & Laboratory Medicine - [address] [address] Outr Resulting Lab, Provider Social History Tobacco [...] 275 - 295 mOsm/kg 08/17/2023 16:24 EDT [facility] Blood VENOUS BLOOD / Unknown 08/16/2023 20:10 EDT 08/17/2023 16:03 EDT Provider Outr Resulting Lab CHEMISTRY & BLOOD GAS ORDERABLES [facility] [address] [place] [address] documented in this encounter Visit Diagnoses Not on filedocumented in this encounter Care Teams Asphalt Screed Operator Relationship Specialty Start Date End Date Katia Stone PA-C [address] [place] [address] PCP - General 05/02/17 documented as of this encounter
--- OUTSIDE RECORDS SUMMARY | 2023-12-24 18:43 | XMS_ITS | Encounter Summary ---
Author Organization [facility] Address [address] [place] [address] Care Team Providers Care Gas Systems Worker Name Role Phone Katia Stone PA-C Primary Care Provider +1- [phone] Encounter Details Date Type Department Care Team (Late st Contact Info) Description 08/08/2020 Results Only Imaging [facility] Radiology Results [address] [place] [phone] Tony Christy MD [address] [place] [address] Social History Tobacco Use Types [...] 15:3 6 EDT Narrative 08/08/2020 15:36 EDT ?[facility] ?[address] ?[place] [address] ?Diagnostic Imaging Report ? Signed ? Patient Name:DAVID FARFAN ? Date of :1950 ?MR Number:[id number] ? Age:69 ?Sex:M ? Category: CR ?Date [...] questions regarding this report, please contact the [facility] at [phone] ? Dictated by: Temo Son MD ?D/ 15 ?? 36 ?? Transcribed by: SSOMROV ?D/T: ? E-Signed by: Temo Son MD ?D/ 19 ?? 38 ?? Procedure Note Temo Son MD - 08/08/2020 [facility] [address] [address] Diagnostic Imaging Report Signed Patient Name:DAVID FARFAN FAccount Number:[id number] Date of :1950 MRNumber:[id number] Age:69 Sex:M Category: CR Date ofExam:08/08/20 Procedure: CR: Chest; Frontal/LAT viewsAccession: [id number] Ordering Physician: Tony Christy MD Patient [...] the [facility] at [phone] Dictated by: Temo Son MDD/ 15 36 Transcribed by: SSOMROVD/T: E-Signed by: Temo Son MDD/ 19 38 Tony Christy MD IMG DIAGNOSTIC DAWIT GING ORDERABLES * CT ABDOMEN PELVIS W CONTRAST (08/08/2020 15:36 EDT) Anatomical Region Laterality Modality Body, Abdomen, Pelvis, Abdomen and Pelvis Computed Tomography 08/08/2020 15:3 6 EDT Narrative 08/08/2020 15:36 EDT ?[facility]: [facility] ?[address] ?[place], [place] [address] ?Diagnostic Imaging Report ? Signed ? Patient Name:ADOLPH,DAVID Martinez ? Date of :1950 ?MR Number:[id number] ? Age:69 ?Sex:M ? Category: CT ?Date [...] please contact the [facility] at [phone] ? Dictated by: Temo Son MD ?D/ 15 ?? 36 ?? Transcribed by: DEBRA ?D/T: ? E-Signed by: Temo Son MD ?D/ 19 ?? 36 ?? Procedure Note Temo Son MD - 08/08/2020 [facility]: [address] [address] Diagnostic Imaging Report Signed Patient Name:DAVID FARFAN FAccount Number:[id number] Date of :1950 MRNumber:[id number] Age:69 Sex:M Category: CT Date ofExam:08/08/20 Procedure: CT: Abd Pelvis; wit cntrstAccession: [id number] Ordering Physician: Tony Christy MD Patient [...] the [facility] at [phone] Dictated by: Temo Son MDD/ 15 36 Transcribed by: PRADEEPVD/T: E-Signed by: Temo Son MDD/ 19 36 Tony Christy MD IMG CT ORDERABLES documented in this encounter Visit Diagnoses Not on filedocumented in this encounter Additional Health Concerns Infection Onset Date Last Indicated Resolved Time RSV 01/31/2022 01/31/2022 02/10/2022 22:1 5 EST documented as of this encounter Care Teams Gas Systems Worker Relationship Specialty Start Date End Date Katia Stone, PA-C [address] [place] [phone] PCP - General 05/02/17 documented as of this encounter
--- OUTSIDE RECORDS SUMMARY | 2023-12-24 18:43 | XMS_ITS | Encounter Summary ---
Author Organization [facility] Address [address] [place] [address] Care Team Providers Care Fisher Net Name Role Phone Katia Stone PA-C Primary Care Provider +1- [phone] Encounter Details Date Type Department Care Team (Late st Contact Info) Description 07/28/2020 Results Only [facility] [address] [place], [place] [address] Katia Stone, MINGO [address] [place] [address] Social History Tobacco Use Types [...] Folate 9.0 >8.6 ng/mL 08/01/2020 9:08 EDT LAB 07/28/2020 14:3 8 EDT 08/01/2020 9:03 EDT Katia Stone PA-C CHEMISTRY & BLOOD GAS ORDERABLES LAB [address] [place] [address] * VITAMIN B12 (07/28/2020 14:38 EDT) Vitamin B12 265 193 - 986 pg/mL 08/01/2020 9:08 EDT LAB Comment: The results of this assay can be falsely elevated due to the consumption of Biotin. 07/28/2020 14:3 8 EDT 08/01/2020 9:03 EDT Katia Stone PA-C CHEMISTRY & BLOOD GAS ORDERABLES Performing Organization Address City/[facility]/ZIP Co de Phone Number LAB [address] [place] [address] * (ABNORMAL) IRON,TIBC,FERRITIN GROUP - PMC (07/28/2020 14:38 EDT) Iron 158 65 - 175 mcg/dL 08/01/2020 9:08 EDT LAB Iron Binding Capacity 212(L) 250 - 450 mcg/dL 08/01/2020 9:08 EDT LAB PERCENT IRON SATURATION - PMC 75(H) 14 - 50 % 08/01/2020 9:08 EDT LAB Ferritin >1,000(H) 26 - 388 ng/mL 08/01/2020 9:08 EDT LAB 07/28/2020 14:3 8 EDT 08/01/2020 9:03 EDT Katia Stone PA-C CHEMISTRY & BLOOD GAS ORDERABLES Performing Organization Address [facility] Co de Phone Number LAB [address] [place] [address] * MESSAGE - PMC (07/28/2020 14:38 EDT) MESSAGE - PMC 07/29/2020 2:55 EDT LAB Comment: WE HAVE NOT RECEIVED ORDERS. PLEASE SEND THEM TO US. THANK YOU. 07/28/2020 14:3 8 EDT 07/28/2020 15:49 EDT Narrative LAB - 07/29/2020 2:55 EDT NO ORDERS TIGER AND LAV Katia Stone PA-C CHEMISTRY & BLOOD GAS ORDERABLES Performing Organization Address City/[facility]/ZIP Co de Phone Number LAB [address] [place] [address] documented in this encounter Visit Diagnoses Not on filedocumented in this encounter Care Teams Fisher Net Relationship Specialty Start Date End Date Katia Stone PA-C [address] [place] [address] PCP - General 05/02/17 documented as of this encounter
--- OUTSIDE RECORDS SUMMARY | 2023-12-24 18:43 | XMS_ITS | Encounter Summary ---
Author Organization [facility] Address [address] [place] [address] Care Team Providers Care Monitoring Engineer Name Role Phone Katia Stone PA-C Primary Care Provider +1- [phone] Reason for Visit * Reason Onset Date Comments Other 05/19/2020 Encounter Details Date Type Department Care Team (Late st Contact Info) Description 05/19/[address] [facility] Cardiothoracic Surgery - [facility] [address] [place] [address] Ja Browne MD [address] [place] [phone] Other Social History Tobacco Use Types [...] CT Surgery Update Patient showed up at [facility] for his CBC and the microbiology lab manager turned him away as the patient said I'll wait and have it done in [place] when I have the other blood test done. The otherblood test needed is on the day of surgery for a Pre-Op Blood Draw (type and screen). I called the lab and spoke with a Desi and she will place a note in the system so that they don't turn him away again. I asked them to call our office at [phone] if there are any questions when the patient arrives. He must have the CBC prior to surgery. I called Nila the CM at his Proivder's office and reviewed above with her. She will call the patientas she works closely with him. P) CBC at [facility]. Call CT Surgery WHILE PATIENT IS THERE IF ANY QUESTIONS. * Telephone Encounter - Alma Dhillon - 05/19/2020 1244 EDT Please call rn case management at PCP Office, Nila. Patient went to [facility] to have pre-op blood draw, as he was directed. [facility] saw the order for blood bank draw, and would not draw any bloodwork for the patient. documented in this encounter Plan of Treatment Not on file documented as of this encounter Visit Diagnoses Not on filedocumented in this encounter Care Teams Monitoring Engineer Relationship Specialty Start Date End Date Katia Stone, MINGO [address] [place] [address] PCP - General 05/02/17 documented as of this encounter
--- OUTSIDE RECORDS SUMMARY | 2023-12-24 18:43 | XMS_ITS | Encounter Summary ---
Author Organization [facility] Address [address] [place] [address] Care Team Providers Care Wheel Aligner Name Role Phone Katia Stone PA-C Primary Care Provider +1- [phone] Reason for Visit * Reason Onset Date Comments Other 06/21/2020 patient wants to cancel surgery Encounter Details Date Type Department Care Team (Late st Contact Info) Description 06/21/2020 Telephone [facility] Cardiothoracic Surgery - [facility] [address] [place] [address] Ja Browne MD [address] [place], [place] [phone] Other (patient wants to cancel surgery) Social [...] with (Whitney). Pt was called by his [employer] Or [employer] Business Manager on 06/21 x 2 and finally Maru Villalobos the College [employer] Business Manager sent the State Police to his house per Maru to do a welfare check as he doesn't follow instructions or return calls per Maru. He didn't go fora covid test and the ride was set up for him by Maru [employer] Business Manager and he cancelled it. He states he [...] Melania Dumas - 06/21/2020 1350 EDT Nila (Regional Psychiatric Director) from [place] calling to advise that patient wants to cancel surgery on Friday06/26/2020 as he believes he has pneumonia. Per Nila, patient has not been seen by anyone and declinedcalling ambulance to take him to ED. documented in this encounter Plan of Treatment Not on file documented as of this encounter Visit Diagnoses Not on filedocumented in this encounter Care Teams Wheel Aligner Relationship Specialty Start Date End Date Katia Stone, MINGO [address] [place] [address] PCP - General 05/02/17 documented as of this encounter
--- OUTSIDE RECORDS SUMMARY | 2023-12-24 18:43 | XMS_ITS | Encounter Summary ---
Author Organization [facility] Address [address] [place] [address] Care Team Providers Care Va Underwriter Name Role Phone Katia Stone PA-C Primary Care Provider +1- [phone] Encounter Details Date Type Department Care Team (Late st Contact Info) Description 01/14/2020 Results Only [facility] [address] [place] [address] Unknown, Provider, Social History Tobacco Use Types [...] 9.0 - 12.3 SEC 01/14/2020 6:26 [facility] PROTHROMBIN TIME WITH INR - PMC 1.1 0.8 - 1.2 RATIO 01/14/2020 6:26 [facility] Comment: Interpretive Information: Moderate Intensity [...] reasons. 01/14/2020 5:30 EST 01/14/2020 5:54 EST [facility] - 01/14/2020 6:37 EST Sample [...] Unknown MD HEMATOLOGY & PF4 ORD ERABLES [facility] [address] [place] [address] * (ABNORMAL) SODIUM (01/14/2020 2:07 EST) Sodium 121(L) 136 - 145 mEq/L 01/14/2020 2:30 [facility] 01/14/2020 2:07 EST 01/14/2020 2:13 EST Narrative [facility] - 01/14/2020 2:41 EST Sample collected from saline lock with discard per protocol by non-laboratory staff. Provider Unknown CHEMISTRY & BLOOD GA S ORDERABLES Performing Organization Address City/State/[facility] Co de Phone Number [facility] [address] [place] [address] documented in this encounter Visit Diagnoses Not on filedocumented in this encounter Care Teams Va Underwriter Relationship Specialty Start Date End Date Katia Stone, PABijalC [address] [place] [phone] PCP - General 05/02/17 documented as of this encounter
--- OUTSIDE RECORDS SUMMARY | 2023-12-24 18:43 | XMS_ITS | Encounter Summary ---
Author Organization [facility] Address [address] [place] [address] Care Team Providers Care Proof Coins Inspector Name Role Phone Katia Stone PA-C Primary Care Provider +1- [phone] Reason for Visit * Reason Onset Date Comments Appointment Related 02/07/2020 PA REQUEST Encounter Details Date Type Department Care Team (Late st Contact Info) Description 02/07/2020 Telephone [facility] [address] [place] [address] Ulises Reinoso MD [address] [place] [address] Appointment Related (PA REQUEST) Social [...] - 02/07/2020 1327 EST PA REQUEST ECHOCARDIOGRAM [id number] 02/29/20 DYSPNEA (R06.0) VITA LIVE THANK YOU! documented in this encounter Plan of Treatment Not on file documented as of this encounter Visit Diagnoses Not on filedocumented in this encounter Care Teams Proof Coins Inspector Relationship Specialty Start Date End Date Katia Stone, PA-C [address] [place] [phone] PCP - General 05/02/17 documented as of this encounter
--- OUTSIDE RECORDS SUMMARY | 2023-12-24 18:43 | XMS_ITS | Encounter Summary ---
Author Organization [facility] Address [address] [place] [address] Care Team Providers Care Tire Retreader Name Role Phone Katia Stone PA-C Primary Care Provider +1- [phone] Reason for Visit * Reason Comments Pacemaker Problem Encounter Details Date Type Department Care Team (Late st Contact Info) Description 04/12/2020 12:20 EST Office Visit [facility] Cardiology [address] [address] Tony Rosenberg MD [address] [place] [address] [place] [phone] Heart block AV third degree (HCC-CMS) [...] Rosenberg MD - 04/12/2020 1216 EST [facility] CARDIOLOGY - [place] PROGRESS / FOLLOWUP NOTE - 04/12/2020 PROBLEM LIST 1. Third-degree heart block, status post dual chamber pacemaker insertion, complicated by pericardial effusion and need for 12-lead repositioning. 2. Hyponatremia. 3. RA lead failure. SUBJECTIVE: Mr Mera returns to the clinic at [facility] to discuss the issues surrounding his [...] had 2 recent hospitalizations, one at [facility] and the other at [facility] for treatment of hyponatremia. PHYSICAL [...] Tony Rosenberg MD / CD Dictation ID: [id number] cc: documented in this encounter Plan of Treatment Not on file documented as of this encounter Visit Diagnoses Diagnosis 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, complete documented in this encounter Care Teams Tire Retreader Relationship Specialty Start Date End Date Katia Stone, MINGO [address] [place] [phone] PCP - General 05/02/17 documented as of this encounter
--- OUTSIDE RECORDS SUMMARY | 2023-12-24 18:43 | XMS_ITS | Encounter Summary ---
Author Organization [facility] Address [address] [place] [address] Care Team Providers Care Portfolio Accountant Name Role Phone Katia Stone PA-C Primary Care Provider +1- [phone] Encounter Details Date Type Department Care Team (Late st Contact Info) Description 01/14/2020 Results Only [facility] [phone] Jayesh Olmos MD [address] [place] [phone] Social History Tobacco Use Types Packs/Day [...] 136 - 145 mEq/L 01/14/2020 19:38 EST [facility] 01/14/2020 19:1 0 EST 01/14/2020 19:19 EST Jayesh Olmos MD CHEMISTRY & BLO OD GAS ORDERABLES Performing Organization Address [facility] Co de Phone Number [facility] [address] [place] [address] * (ABNORMAL) SODIUM (01/14/2020 14:55 EST) Sodium 125(L) 136 - 145 mEq/L 01/14/2020 15:17 EST [facility] 01/14/2020 14:5 5 EST 01/14/2020 14:59 EST Jayesh Olmos MD CHEMISTRY & BLO OD GAS ORDERABLES Performing Organization Address [facility]/ZIP Co de Phone Number [facility] [address] [place] [address] * (ABNORMAL) COMPLETE BLOOD COUNT (01/14/2020 5:30 EST) WBC 5.2 4.0 - 10.5 10 3/uL 01/14/2020 6:25 [facility] RBC 3.29(L) 4.70 - 6.00 10 6/uL 01/14/2020 6:25 [facility] Hemoglobin 11.5(L) 13.5 - 18.0 g/dL 01/14/2020 6:25 [facility] HCT 31.5(L) 42.0 - 52.0 % 01/14/2020 6:25 [facility] MCV 95.7 78 - 100 fL 01/14/2020 6:25 [facility] MCH 35.0(H) 27 - 31 pg 01/14/2020 6:25 [facility] MCHC 36.5(H) 32 - 36 g/dL 01/14/2020 6:25 [facility] RDW-CV - PMC 13.1 11.0 - 14.8 % 01/14/2020 6:25 [facility] PLATELET COUNT - PMC 156 150 - 450 10 3/uL 01/14/2020 6:25 [facility] 01/14/2020 5:30 EST 01/14/2020 5:54 [facility] - 01/14/2020 6:37 EST [...] Olmos MD HEMATOLOGY & PF 4 ORDERABLES [facility] [address] [place] [address] * MAGNESIUM (01/14/2020 5:30 EST) Magnesium 2.0 1.8 - 2.4 mg/dl 01/14/2020 6:30 [facility] 01/14/2020 5:30 EST 01/14/2020 5:54 EST [facility] - 01/14/2020 6:33 EST Sample [...] GAS ORDERABLES [facility] [address] [place] [address] * (ABNORMAL) BASIC METABOLIC PANEL,RANDOM - PMC (01/14/2020 5:30 EST) Sodium 122(L) 136 - 145 mEq/L 01/14/2020 6:30 [facility] Potassium 4.0 3.5 - 5.1 mEq/L 01/14/2020 6:30 [facility] Chloride 89(L) 96 - 107 mEq/L 01/14/2020 6:30 [facility] CO2 Total 28.1 21 - 32 mEq/L 01/14/2020 6:30 [facility] Anion Gap 5.9 mEq/L 01/14/2020 6:30 [facility] BUN 11 7 - 25 mg/dl 01/14/2020 6:30 [facility] Creatinine 0.71 0.70 - 1.30 mg/dl 01/14/2020 6:30 [facility] Estimated GFR >60 >60 01/14/2020 6:30 [facility] Comment: EGFR UNITS: mL/min/1.73 m 2 CKD-EPI Equation used to calculate. Glucose 101 70 - 180 mg/dl 01/14/2020 6:30 [facility] Calcium 8.2(L) 8.5 - 10.1 mg/dl 01/14/2020 6:30 [facility] 01/14/2020 5:30 EST 01/14/2020 5:54 EST [facility] - 01/14/2020 6:33 EST Sample [...] GAS ORDERABLES [facility] [address] [place] [address] documented in this encounter Visit Diagnoses Not on filedocumented in this encounter Care Teams Portfolio Accountant Relationship Specialty Start Date End Date Katia Stone, PARosanna [address] [place] [phone] PCP - General 05/02/17 documented as of this encounter
--- OUTSIDE RECORDS SUMMARY | 2023-12-24 18:43 | XMS_ITS | Encounter Summary ---
Author Organization [facility] Address [address] [place] [address] Care Team Providers Care Nutrition Internship Name Role Phone Katia Stone PA-C Primary Care Provider +1- [phone] Encounter Details Date Type Department Care Team (Latest Contact Info) Description 06/19/2020 16:00 EDT - 06/19/2020 23:59 EDT Hospital Encounter [facility] Pre-Surgical Testing [address] [place] [address] Discharge Disposition: Home or Self Care Social [...] hospital - to be organized by his oil field caser Nila Villalobos. Pt refused to listen to instructions for surgery states I am waiting for the paper work that tells me what meds to take. This RN spoke with Cat Sutherland inpatient services rn to discuss above. Cat to call pt tomorrow to confirm informations on medications as well as instructions otherwise. She will also contact medical case manager to confirm ride. documented in this encounter Plan of Treatment Not on file documented as of this encounter Visit Diagnoses Not on filedocumented in this encounter Care Teams Nutrition Internship Relationship Specialty Start Date End Date Katia Stone, PABijalC [address] [place] [phone] PCP - General 05/02/17 documented as of this encounter
--- OUTSIDE RECORDS SUMMARY | 2023-12-24 18:43 | XMS_ITS | Encounter Summary ---
Author Organization [facility] Address [address] [place] [address] Care Team Providers Care Ct Scan Special Procedures Technologist Name Role Phone Katia Stone PA-C Primary Care Provider +1- [phone] Reason for Visit * Reason Onset Date Comments Appointment Related 05/04/2020 Encounter Details Date Type Department Care Team (Late st Contact Info) Description 05/04/2020 Telephone [facility] Cardiothoracic Surgery - [facility] [address] [place] [address] Ja Browne MD [address] [place] [phone] Appointment Related Social History Tobacco Use [...] 05/10/2020 0953 EST Medical records from [facility] received, scanned and book marked for [...] at 10:30 am. Fax out to [facility] and [facility] to request patient's Discharge Summary from recent hospitalization, as well as diagnostic testing, EKG, labs, etc. Await response. documented in this encounter Plan of Treatment Not on file documented as of this encounter Visit Diagnoses Not on filedocumented in this encounter Care Teams Ct Scan Special Procedures Technologist Relationship Specialty Start Date End Date Katia Stone, MINGO [address] [place] [phone] PCP - General 05/02/17 documented as of this encounter
--- OUTSIDE RECORDS SUMMARY | 2023-12-24 18:43 | XMS_ITS | Encounter Summary ---
Author Organization [facility] Address [address] [place] [address] Care Team Providers Care Occupational Medicine Specialist Name Role Phone Katia Stone PA-C Primary Care Provider +1- [phone] Reason for Referral * Radiology Services (Routine) - Closed Specialty Diagnoses / Procedures Referred By Jael ho Referred To Contact Diagnoses 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, initial encounter Procedures XR CHEST 2 VIEWS José Miguel Roca PA-C [address] [place] [phone] Referral ID Status Reason Start Date Expiration Date Visits Re quested Visits Authorized [id number] Closed 05/16/2020 1 1 Reason for Visit * Radiology Services (Routine) - Closed Specialty Diagnoses / Procedures Referred By Jael ho Referred To Contact Diagnoses 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, initial encounter Procedures XR CHEST 2 VIEWS José Miguel Roca PA-C [address] [phone] Referral ID Status Reason Start Date Expiration Date Visits Re quested Visits Authorized [id number] Closed 05/16/2020 1 1 Encounter Details Date Type Department Care Team (Latest Contact Info) Description 05/16/2020 10:57 EDT - 05/16/2020 23:59 EDT Hospital [facility] Radiology Xray Outpatient - [address] [address] 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, [...] encounter documented in this encounter Care Teams Occupational Medicine Specialist Relationship Specialty Start Date End Date Katia Stone PA-C [address] [place] [phone] PCP - General 05/02/17 documented as of this encounter
--- OUTSIDE RECORDS SUMMARY | 2023-12-24 18:43 | XMS_ITS | Encounter Summary ---
Author Organization [facility] Address [address] [place] [address] Care Team Providers Care Oracle Dba Name Role Phone Katia Stone PA-C Primary Care Provider +1- [phone] Reason for Visit * Reason Onset Date Comments Coordination Of Care 04/19/2020 Returning Call 04/20/2020 Encounter Details Date Type Department Care Team (Late st Contact Info) Description 04/19/2020 Telephone [facility] Cardiology - [address] [phone] Tony Rosenberg MD [address] [place] [address] [address] [place] [address] Coordination Of Care; Returning Call [...] Adam Ordoñez - 04/20/2020 1508 EST Patient's caseworker protective services returning call to Belinda. Please call. * Telephone Encounter - Belinda Falk RN - 04/20/2020 1457 EST Call placed to caseworker protective services regarding patient unable to reach by phone. Message left on voice mail to call office back with call back number [phone]. * Telephone Encounter - Conner Mccall - 04/19/2020 1118 EST Reason for Call: Coordination Of Care Summary/Symptoms: Maru patients Floating Derrick Operator reaching out to get more information on [...] on filedocumented in this encounter Care Teams Oracle Dba Relationship Specialty Start Date End Date Katia Stone PA-C [address] [place] [phone] PCP - General 05/02/17 documented as of this encounter
--- OUTSIDE RECORDS SUMMARY | 2023-12-24 18:43 | XMS_ITS | Encounter Summary ---
Author Organization [facility] Address [address] [place] [address] Care Team Providers Care Fabricator Artificial Breast Name Role Phone Katia Stone PA-C Primary Care Provider +1- [phone] Encounter Details Date Type Department Care Team (Late st Contact Info) Description 01/17/2020 Results Only [facility] [phone] Jayesh Olmos MD [address] [place] [phone] Social History Tobacco Use Types Packs/Day [...] Cortisol, S SEE COMMENTS 01/18/2020 17:25 EST [facility] Comment: Test ?Result ?Flag ??Unit ?RefValue Cortisol, S ??AM Result ? 11 ?mcg/dL ??7-25 Test Performed by: [facility] [address] [place] [address] Sales Professional: Pierre Andersen M.D. Ph.D.; CLIA# [id number] 01/17/2020 7:50 EST 01/17/2020 7:51 EST Jayesh Olmos MD CHEMISTRY & BLO OD GAS ORDERABLES [facility] [address] [place] [address] * (ABNORMAL) BASIC METABOLIC PANEL,RANDOM - PMC (01/17/2020 7:50 EST) [facility] Sodium 130(L) 136 - 145 mEq/L 01/17/2020 8:13 [facility] Potassium 3.7 3.5 - 5.1 mEq/L 01/17/2020 8:13 [facility] Chloride 95(L) 96 - 107 mEq/L 01/17/2020 8:13 [facility] CO2 Total 27.4 21 - 32 mEq/L 01/17/2020 8:13 [facility] Anion Gap 7.6 mEq/L 01/17/2020 8:13 [facility] BUN 10 7 - 25 mg/dl 01/17/2020 8:13 [facility] Creatinine 0.62(L) 0.70 - 1.30 mg/dl 01/17/2020 8:13 [facility] Estimated GFR >60 >60 01/17/2020 8:18 [facility] Comment: EGFR UNITS: mL/min/1.73 m 2 CKD-EPI Equation used to calculate. Glucose 91 70 - 180 mg/dl 01/17/2020 8:13 [facility] Calcium 8.4(L) 8.5 - 10.1 mg/dl 01/17/2020 8:13 [facility] 01/17/2020 7:50 EST 01/17/2020 7:51 EST Jayesh Olmos MD CHEMISTRY & BLO OD GAS ORDERABLES Performing Organization Address City/State/[facility] Co de Phone Number [facility] [address] [place] [address] documented in this encounter Visit Diagnoses Not on filedocumented in this encounter Care Teams Fabricator Artificial Breast Relationship Specialty Start Date End Date Katia Stone PABijalC [address] [facility] [place] [address] PCP - General 05/02/17 documented as of this encounter
--- OUTSIDE RECORDS SUMMARY | 2023-12-24 18:43 | XMS_ITS | Encounter Summary ---
Author Organization [facility] Address [address] [place] [address] Care Team Providers Care Wellness Trainer Name Role Phone Katia Stone PA-C Primary Care Provider +1- [phone] Encounter Details Date Type Department Care Team (Late st Contact Info) Description 05/16/2020 Documentation Visit [facility] Infectious Disease - [address] [address] [facility] [address] [phone] Social History Tobacco Use Types [...] - 05/16/2020 0947 EDT Upon entering the [facility], patient answered yes to one [...] patient sent to appointment. Kem Thomson RN, [id number] documented in this encounter Plan of Treatment Not on file documented as of this encounter Visit Diagnoses Not on filedocumented in this encounter Care Teams Wellness Trainer Relationship Specialty Start Date End Date Katia Stone, [place]O [address] [place] [phone] PCP - General 05/02/17 documented as of this encounter
--- OUTSIDE RECORDS SUMMARY | 2023-12-24 18:43 | XMS_ITS | Encounter Summary ---
Author Organization [facility] Address [address] [place] [address] Care Team Providers Care Field Hockey And Lacrosse Coach Name Role Phone Katia Stone PA-C Primary Care Provider +1- [phone] Reason for Visit * Reason Onset Date Comments Labs Only 05/17/2020 Lab orders for p re-op blood work Encounter Details Date Type Department Care Team (Late st Contact Info) Description 05/17/2020 Telephone [facility] Cardiothoracic Surgery - [facility] [address] [place] [address] Ja Browne MD [address] [place] [phone] Labs Only (Lab orders for pre-op [...] note of 05/16. Explained again to Nila Cellular Equipment Repairer. * Telephone Encounter - Melania Dumas - 05/17/2020 1044 EDT Nila (river and harbor soundings group leader from [facility]) calling to find out if patient's lab orders were faxed to [facility]. Per Nila, patient did not have his blood drawn while here at [facility] on 05/16/2020. Hand Tube Bender explained to caller that patients are usually unable to have pre-op blood bank done at any other facility but sign writer hand will defer to CT Surgery RN. Nila requesting return call to [phone], extension: 7. documented in this encounter Plan of Treatment Not on file documented as of this encounter Visit Diagnoses Not on filedocumented in this encounter Care Teams Field Hockey And Lacrosse Coach Relationship Specialty Start Date End Date Katia Stone, BELLAC [address] [place] [phone] PCP - General 05/02/17 documented as of this encounter
--- OUTSIDE RECORDS SUMMARY | 2023-12-24 18:43 | XMS_ITS | Encounter Summary ---
Author Organization [facility] Address [address] [place] [address] Care Team Providers Care Precision Machining Instructor Name Role Phone Katia Stone PA-C Primary Care Provider +1- [phone] Reason for Visit * Reason Onset Date Comments Labs Only 05/11/2020 Encounter Details Date Type Department Care Team (Late st Contact Info) Description 05/11/[address] [facility] Acute Care Surgery - [facility] [address] [place] [address] Ja Browne MD [address] [place] [phone] Labs Only Social History Tobacco Use [...] reviewed this with the Radiology front office help on ACC 3 that he would need to be taken to the lab on Level 2 following his chest x-ray. They did not take him. I will re-enter the orders for the CBC to have drawn at [place] which is closest to the patient's home he states. I have routed our CT PACHECO Salvador STOUT to re-enter the Type and Screen/ x match order to be drawn inpre-op hold on the dosa. Pt made aware to go to [facility] to have the CBC drawn on 05/17 or05/18. I confirmed with the Lab there that it's the CBC that needs to be drawn. Emergency Medical Service Manager verbalized understanding and no appt needed. Pt [...] on filedocumented in this encounter Care Teams Precision Machining Instructor Relationship Specialty Start Date End Date Katia Stone, MINGO [address] [place] [phone] PCP - General 05/02/17 documented as of this encounter
--- OUTSIDE RECORDS SUMMARY | 2023-12-24 18:43 | XMS_ITS | Encounter Summary ---
Author Organization [facility] Address [address] [place] [address] Care Team Providers Care Sr Technical Sales Consultant Name Role Phone Katia Stone PA-C Primary Care Provider +1- [phone] Reason for Visit * Reason Onset Date Comments Appointment Related 06/06/2020 Encounter Details Date Type Department Care Team (Late st Contact Info) Description 06/06/2020 Telephone [facility] Cardiothoracic Surgery - [facility] [address] [place] [address] Ja Browne MD [address] [place] [phone] Appointment Related Social History Tobacco Use [...] Telephone Encounter - Alma Dhillon - 06/06/2020 4178 EDT At her request, I have telephoned Nurse Back Gray Cloth Washer, Nila, at [facility] to advise of this patient's surgery date. [...] filedocumented in this encounter Care Teams Sr Technical Sales Consultant Relationship Specialty Start Date End Date Katia Stone, BELLAC [address] [place] [phone] PCP - General 05/02/17 documented as of this encounter
--- OUTSIDE RECORDS SUMMARY | 2023-12-24 18:43 | XMS_ITS | Encounter Summary ---
Author Organization [facility] Address [address] [place] [address] Care Team Providers Care Household Cook Name Role Phone Katia Stone PA-C Primary Care Provider +1- [phone] Encounter Details Date Type Department Care Team (Late st Contact Info) Description 01/16/2020 Results Only [facility] [address] [place] [address] Unknown, Provider, Social History Tobacco Use Types [...] 129(L) 136 - 145 mEq/L 01/16/2020 7:26 [facility] Potassium 3.8 3.5 - 5.1 mEq/L 01/16/2020 7:26 [facility] Chloride 95(L) 96 - 107 mEq/L 01/16/2020 7:26 [facility] CO2 Total 27.5 21 - 32 mEq/L 01/16/2020 7:26 [facility] Anion Gap 7.5 mEq/L 01/16/2020 7:26 [facility] BUN 10 7 - 25 mg/dl 01/16/2020 7:26 [facility] Creatinine 0.64(L) 0.70 - 1.30 mg/dl 01/16/2020 7:26 [facility] Estimated GFR >60 >60 01/16/2020 7:29 [facility] Comment: EGFR UNITS: mL/min/1.73 m 2 CKD-EPI Equation used to calculate. Glucose 91 74 - 106 mg/dl 01/16/2020 7:26 [facility] Calcium 8.4(L) 8.5 - 10.1 mg/dl 01/16/2020 7:26 [facility] 01/16/2020 7:07 EST 01/16/2020 7:09 EST Provider Unknown CHEMISTRY & BLOOD GA S ORDERABLES Performing Organization Address City/State/[facility] Co de Phone Number [facility] [address] [place] [address] documented in this encounter Visit Diagnoses Not on filedocumented in this encounter Care Teams Household Cook Relationship Specialty Start Date End Date Katia Stone, MINGO [address] [place] [phone] PCP - General 05/02/17 documented as of this encounter
--- OUTSIDE RECORDS SUMMARY | 2023-12-24 18:43 | XMS_ITS | Encounter Summary ---
Author Organization [facility] Address [address] [place] [address] Care Team Providers Care Welt Edge Rounder Name Role Phone Katia Stone PA-C Primary Care Provider +1- [phone] Reason for Visit * Reason Onset Date Comments Confirmation 06/19/2020 Encounter Details Date Type Department Care Team (Late st Contact Info) Description 06/19/2020 Telephone [facility] Cardiothoracic Surgery - [address] [address] Cat Sutherland RN Confirmation Social History Tobacco [...] the patient to call Maru Villalobos his Sprayer Automatic Spray Machine as she is arranging his rides for his COVID test and Surgery as well as his instructions for surgery. I also left Maru a message aswell. * Telephone Encounter - Alma Dhillon - 06/20/2020 0938 EDT FYI---Patient's Monorail Car Operator calls to say she is not [...] well to Maru Villalobos RN the patient's Sprayer Automatic Spray Machine at PCP office, which she did receive. [...] on 06/20 New phone numbers for Maru: [phone] EXT#4, EXT#[id number] Or direct line = [phone] documented in this encounter Plan of Treatment Not on file documented as of this encounter Visit Diagnoses Not on filedocumented in this encounter Care Teams Welt Edge Rounder Relationship Specialty Start Date End Date Katia Stone, PABijalC [address] [place] [phone] PCP - General 05/02/17 documented as of this encounter
--- OUTSIDE RECORDS SUMMARY | 2023-12-24 18:43 | XMS_ITS | Encounter Summary ---
Author Organization [facility] Address [address] [place] [address] Care Team Providers Care Director Prison Name Role Phone Katia Stone PA-C Primary Care Provider +1- [phone] Encounter Details Date Type Department Care Team (Late st Contact Info) Description 01/16/2020 Results Only Imaging [facility] Radiology Results [address] [place] [address] Jayesh Olmos MD [address] [place] [address] Social History Tobacco Use Types [...] 13:1 9 EST Narrative 01/16/2020 13:19 EST ?[facility] ?[address] ?[place] [address] ?Diagnostic Imaging Report ? Signed ? Patient Name:DAVID FARFAN ? Date of :1950 ?MR Number:[id number] ? Age:69 ?Sex:M ? Category: CT ?Date of Exam:01/16/20 ? Procedure: CT: Thorax; with contrast ? Ordering Physician: Nickolas ([facility])Jayesh MD ?Patient ? CC: ?? Emeterio Wynne MD ?? Jayesh Olmos MD ([facility]) ?? Katia Mccallum ? PROCEDURE [...] [facility] at [phone] ? Dictated by: Brenda Dixon MD ?D/ ?? 1319 ?? Transcribed by: SERGEY ?D/T: ? E-Signed by: Brenda Dixon MD ?D/ ?? 1528 ?? Procedure Note Brenda Dixon MD - 02/01/2020 UVN: [address] [address] Diagnostic Imaging Report Signed Patient Name:DAVID FARFAN FAccount Number:[id number] Date of :1950 MRNumber:[id number] Age:69 Sex:M Category: CT Date ofExam:01/16/20 Procedure: CT: Thorax; with contrastAccession: [id number] Ordering Physician: Nickolas ([facility])Jayesh MD Patient CC: Emeterio Wynne MD, Michael MD ([facility]) Katia Mccallum PROCEDURE INFORMATION: Exam: [...] Pleural space: Loculated left pleural effusion posterolaterally myfldnou62.7 by 5.4 cm in greatest transverse dimension. [...] regarding this report, please contact the [facility] at [phone] Dictated by: Brenda Dixon MDD/ 1319 Transcribed by: ANA/T: E-Signed by: Brenda Dixon MDD/ 1528 Jayesh Olmos MD IMG CT ORDERABL ES * XR CHEST 2 VIEWS (01/16/2020 9:51 EST) Anatomical Region Laterality Modality Computed Radiogr aphy 01/16/2020 9:51 EST Narrative 01/16/2020 9:51 EST ?[facility] ?[address] ?[place] [address] ?Diagnostic Imaging Report ? Signed ? Patient Name:DAVID FARFAN ? Date of :1950 ?MR Number:[id number] ? Age:69 ?Sex:M ? Category: CR ?Date of Exam:11/15/20 ? Procedure: CR: Chest; Frontal/LAT views ? 923 ? Ordering Physician: Nickolas ([facility]),Jayesh Coburn MD ?Patient ? CC: ?? Emeterio Wynne MD ?? Jayesh Olmos MD ([facility]) ?? Katia Mccallum ? PROCEDURE [...] [facility] at [phone] ? Dictated by: Brenda Dixon MD ?D/ ?? 0951 ?? Transcribed by: SERGEY ?D/T: ? E-Signed by: Brenda Dixon MD ?D/ ?? 1121 ?? Procedure Note Brenda Dixon MD - 02/01/2020 [facility]: [address] [address] Diagnostic Imaging Report Signed Patient Name:DAVID FARFAN FAccount Number:[id number] Date of :1950 MRNumber:[id number] Age:69 Sex:M Category: CR Date ofExam:01/16/20 Procedure: CR: Chest; Frontal/LAT viewsAccession: [id number] Ordering Physician: Nickolas ([facility])Jayesh MD Patient CC: Emeterio Wynne MD, Michael MD ([facility]) Katia Mccallum PROCEDURE INFORMATION: Exam: [...] regarding this report, please contact the [facility] at [phone] Dictated by: Brenda Dixon/ 0951 Transcribed by: ANA/T: E-Signed by: Brenda Dixon MDD/ 1121 Jayesh Olmos MD IMG DIAGNOSTIC IMAGING ORDERABLES documented in this encounter Visit Diagnoses Not on filedocumented in this encounter Additional Health Concerns Infection Onset Date Last Indicated Resolved Time RSV 01/31/2022 01/31/2022 02/10/2022 22:1 5 EST documented as of this encounter Care Teams Director Prison Relationship Specialty Start Date End Date Katia Stone, PABijalC [address] [place] [phone] PCP - General 05/02/17 documented as of this encounter
--- OUTSIDE RECORDS SUMMARY | 2023-12-24 18:43 | XMS_ITS | Encounter Summary ---
Author Organization [facility] Address [address] [place] [address] Care Team Providers Care Circuit Recorder Name Role Phone Katia Stone PA-C Primary Care Provider +1- [phone] Encounter Details Date Type Department Care Team (Late st Contact Info) Description 01/15/2020 Results Only [facility] [address] [place] [address] Unknown, Provider, Social History Tobacco Use Types [...] 136 - 145 mEq/L 01/15/2020 0:36 EST [facility] 01/15/2020 0:18 EST 01/15/2020 0:20 EST Provider Unknown CHEMISTRY & BLOOD GA S ORDERABLES Performing Organization Address City/State/[facility] Co de Phone Number [facility] [address] [place] [address] documented in this encounter Visit Diagnoses Not on filedocumented in this encounter Care Teams Circuit Recorder Relationship Specialty Start Date End Date Katia Stone, PABijalC [address] [place] [phone] PCP - General 05/02/17 documented as of this encounter
--- OUTSIDE RECORDS SUMMARY | 2023-12-24 18:43 | XMS_ITS | Encounter Summary ---
Author Organization [facility] Address [address] [place] [address] Care Team Providers Care Counselor Supervisor Name Role Phone Katia Stone PA-C Primary Care Provider +1- [phone] Reason for Visit * Reason Onset Date Comments Appointment Related 06/19/2020 Encounter Details Date Type Department Care Team (Late st Contact Info) Description 06/19/2020 Telephone [facility] Cardiothoracic Surgery - [facility] [address] [place] [address] Ja Browne MD [address] [place] [phone] Appointment Related Social History Tobacco Use [...] - 06/19/2020 0858 EDT TC to Nila, Excavating Contractor, at patient's PCP Office. She is aware that patient has a PAT appointment today between 4:00 and 4:45 pm with an Anesthesia Nurse. Patient is scheduled for surgery on 06/26 at 12:10 pm and should arrive in the Registration Department at 10:10 am. Excavating Contractor states that patient has a COVID test scheduled for 06/22 at . New telephone number noted for Excavating Contractor is [phone]. documented in this encounter Plan of Treatment Not on file documented as of this encounter Visit Diagnoses Not on filedocumented in this encounter Care Teams Counselor Supervisor Relationship Specialty Start Date End Date Katia Stone PA-C [address] [place] [phone] PCP - General 05/02/17 documented as of this encounter
--- OUTSIDE RECORDS SUMMARY | 2023-12-24 18:43 | XMS_ITS | Encounter Summary ---
Author Organization [facility] Address [address] [place] [address] Care Team Providers Care City Superintendent Name Role Phone Katia Stone PA-C Primary Care Provider +1- [phone] Encounter Details Date Type Department Care Team (Late st Contact Info) Description 01/13/2020 Results Only [facility] [address] [place] [address] Unknown, Provider, Social History Tobacco Use Types [...] 136 - 145 mEq/L 01/13/2020 22:[address] [facility] 01/13/2020 21:5 0 EST 01/13/2020 21:[address] [facility] - 01/13/2020 22:26 EST Sample collected by ED but method of collection (IV Start or venipuncture) not indicated on sample. Provider Unknown CHEMISTRY & BLOOD GA S ORDERABLES [facility] [address] [place] [address] * TROPONIN I (01/13/2020 7:15 EST) Troponin I (ng/mL) <0.050 0 - 0.056 ng/ml 01/13/2020 7:[address] [facility] Comment: Interpretation: The cutoff for [...] 01/13/2020 7:15 EST 01/13/2020 7:[address] [facility] - 01/13/2020 7:54 EST Sample [...] Unknown CHEMISTRY & BLOOD GA S ORDERABLES [facility] [address] [place] [address] * (ABNORMAL) SODIUM (01/13/2020 7:15 EST) [facility] Sodium 120(L) 136 - 145 mEq/L 01/13/2020 7:52 [facility] 01/13/2020 7:15 EST 01/13/2020 7:18 [facility] - 01/13/2020 7:54 EST [...] S ORDERABLES Performing Organization Address [facility] de Phone Number [facility] [address] [place] [address] * OSMOLALITY,S PMC TEMP (01/13/2020 5:42 EST) [facility] OSMOLALITY,S 280 275 - 295 mOsm/kg 01/14/2020 18:37 [facility] Comment: Test Performed by: [place] [address] Auto Crane Driver: Pierre Andersen M.D. Ph.D.; CLIA# [id number] 01/13/2020 5:42 EST 01/13/2020 5:52 [facility] - 01/14/2020 18:37 EST Sample collected by ED but method of collection (IV Start or venipuncture) not indicated on sample. Provider Unknown CHEMISTRY & BLOOD GA S ORDERABLES Performing Organization Address [facility] Co de Phone Number [facility] [address] [place] [address] * FOLATE (01/13/2020 5:42 EST) [facility] Folate 18.7 >8.6 ng/mL 01/13/2020 7:43 [facility] 01/13/2020 5:42 EST 01/13/2020 5:54 EST Provider Unknown CHEMISTRY & BLOOD GA S ORDERABLES Performing Organization Address [facility] Phone Number [facility] [address] [place] [address] * VITAMIN B12 (01/13/2020 5:42 EST) Vitamin B12 246 193 - 986 pg/mL 01/13/2020 7:43 [facility] Comment: The results of this assay can be falsely elevated due to the consumption of Biotin. 01/13/2020 5:42 EST 01/13/2020 5:54 EST Provider Unknown CHEMISTRY & BLOOD GA S ORDERABLES Performing Organization Address [facility] Number [facility] [address] [place] [address] * (ABNORMAL) IRON,TIBC,FERRITIN GROUP - PMC (01/13/2020 5:42 EST) Iron 178(H) 65 - 175 mcg/dL 01/13/2020 7:43 [facility] Iron Binding Capacity 193(L) 250 - 450 mcg/dL 01/13/2020 7:43 [facility] PERCENT IRON SATURATION - PMC 92(H) 14 - 50 % 01/13/2020 7:43 [facility] Ferritin >1,000(H) 26 - 388 ng/mL 01/13/2020 7:43 [facility] 01/13/2020 5:42 EST 01/13/2020 5:54 EST Provider Unknown CHEMISTRY & BLOOD GA S ORDERABLES Performing Organization Address [facility] Co de Phone Number [facility] [address] [place] [address] * PROTIME (01/13/2020 5:42 EST) Pro Time 11.1 9.0 - 12.3 SEC 01/13/2020 6:47 [facility] PROTHROMBIN TIME WITH INR - PMC 1.1 0.8 - 1.2 RATIO 01/13/2020 6:47 [facility] Comment: Interpretive [...] reasons. 01/13/2020 5:42 EST 01/13/2020 5:55 EST [facility] - 01/13/2020 6:48 EST Sample collected by ED but method of collection (IV Start or venipuncture) not indicated on sample. Provider Unknown HEMATOLOGY & PF4 ORD ERABLES Performing Organization Address [facility] Phone Number [facility] [address] [place] [address] * THYROID CASCADE (01/13/2020 5:42 EST) TSH 1.958 0.360 - 3.740 mIU/L 01/13/2020 6:35 [facility] Comment: Note: This is a Third Generation Assay .......................................... The results of this assay can be falsely decreased due to the consumption of Biotin. 01/13/2020 5:42 EST 01/13/2020 5:51 EST [facility] - 01/13/2020 6:35 EST Sample collected by ED but method of collection (IV Start or venipuncture) not indicated on sample. Provider Unknown CHEMISTRY & BLOOD GA S ORDERABLES Performing Organization Address [facility] Co pr Phone Number [facility] [address] [place] [address] * (ABNORMAL) MAGNESIUM (01/13/2020 5:42 EST) Magnesium 1.4(L) 1.8 - 2.4 mg/dl 01/13/2020 6:35 [facility] 01/13/2020 5:42 EST 01/13/2020 5:51 [facility] - 01/13/2020 6:35 EST Sample collected by ED but method of collection (IV Start or venipuncture) not indicated on sample. Provider Unknown MD CHEMISTRY & BLOOD GA S ORDERABLES [facility] [address] [place] [address] * (ABNORMAL) HEPATIC & CMP COMBO,FASTING - PMC (01/13/2020 5:42 EST) Sodium 121(L) 136 - 145 mEq/L 01/13/2020 6:35 [facility] Potassium 4.1 3.5 - 5.1 mEq/L 01/13/2020 6:35 [facility] Chloride 87(L) 96 - 107 mEq/L 01/13/2020 6:35 [facility] CO2 Total 25.5 21 - 32 mEq/L 01/13/2020 6:35 [facility] Anion Gap 8.5 mEq/L 01/13/2020 6:35 [facility] BUN 4(L) 7 - 25 mg/dl 01/13/2020 6:35 [facility] Creatinine 0.60(L) 0.70 - 1.30 mg/dl 01/13/2020 6:35 [facility] Estimated GFR >60 >60 01/13/2020 6:35 [facility] Comment: EGFR UNITS: mL/min/1.73 m 2 CKD-EPI Equation used to calculate. Glucose 70 70 - 180 mg/dl 01/13/2020 6:35 [facility] Calcium 7.9(L) 8.5 - 10.1 mg/dl 01/13/2020 6:35 [facility] CALCIUM,CORRECTE D - PMC 8.9 8.5 - 10.5 mg/dl 01/13/2020 6:35 [facility] BILIRUBIN - PMC 0.70 0.00 - 1.00 mg/dl 01/13/2020 6:35 [facility] AST 56(H) 15 - 37 U/L 01/13/2020 6:35 [facility] ALT 38 16 - 63 U/L 01/13/2020 6:35 [facility] Alkaline Phosphatase 87 46 - 116 U/L 01/13/2020 6:35 [facility] Total Protein 6.8 6.4 - 8.2 g/dl 01/13/2020 6:35 [facility] Albumin 2.7(L) 3.4 - 5.0 g/dl 01/13/2020 6:35 [facility] GLOBULIN - PMC 4.1 g/dl 01/13/2020 6:35 [facility] ALBUMIN/GLOBULIN RATIO - PMC 0.6 01/13/2020 6:35 [facility] 01/13/2020 5:42 EST 01/13/2020 5:51 [facility] - 01/13/2020 6:35 EST Sample collected by ED but method of collection (IV Start or venipuncture) not indicated on sample. Provider Unknown CHEMISTRY & BLOOD GA S ORDERABLES Performing Organization Address City/State/[facility] Co de Phone Number [facility] [address] [place] [address] * (ABNORMAL) COMPLETE BLOOD COUNT AND DIFFERENTIAL (01/13/2020 5:42 EST) WBC 5.2 4.0 - 10.5 10 3/uL 01/13/2020 6:17 [facility] RBC 3.24(L) 4.70 - 6.00 10 6/uL 01/13/2020 6:17 [facility] Hemoglobin 11.3(L) 13.5 - 18.0 g/dL 01/13/2020 6:17 [facility] HCT 30.8(L) 42.0 - 52.0 % 01/13/2020 6:17 [facility] MCV 95.1 78 - 100 fL 01/13/2020 6:17 [facility] MCH 34.9(H) 27 - 31 pg 01/13/2020 6:17 [facility] MCHC 36.7(H) 32 - 36 g/dL 01/13/2020 6:17 [facility] RDW-CV - PMC 12.5 11.0 - 14.8 % 01/13/2020 6:17 [facility] PLATELET COUNT - PMC 161 150 - 450 10 3/uL 01/13/2020 6:17 [facility] NEUTROPHILS % (AUTO) - PMC 52.1 42.0 - 75.0 % 01/13/2020 6:17 [facility] LYMPHOCYTES % (AUTO) - PMC 30.5 16.0 - 52.0 % 01/13/2020 6:17 [facility] MONOCYTES % (AUTO) - PMC 13.8(H) 1.0 - 11.0 % 01/13/2020 6:17 [facility] EOSINOPHILS % (AUTO) - PMC 1.7 0.0 - 7.0 % 01/13/2020 6:17 [facility] BASOPHILS % (AUTO) - PMC 1.3 0.0 - 4.0 % 01/13/2020 6:17 [facility] NUCLEATED RBC % (AUTO) - PMC 0.0 <1 % 01/13/2020 6:17 [facility] NEUTROPHILS # (AUTO) - PMC 2.7 1.5 - 6.6 10 3/uL 01/13/2020 6:17 [facility] LYMPHOCYTES # (AUTO) - PMC 1.6 1.0 - 3.5 10 3/uL 01/13/2020 6:17 [facility] MONOCYTES # (AUTO) - PMC 0.7 <1.0 10 3/uL 01/13/2020 6:17 [facility] EOSINOPHILS # (AUTO) - PMC 0.1 <0.7 10 3/uL 01/13/2020 6:17 [facility] BASOPHILS # (AUTO) - PMC 0.1 <0.1 10 3/uL 01/13/2020 6:17 [facility] NUCLEATED RBC # (AUTO) - PMC 0.00 <1 10 3/uL 01/13/2020 6:17 [facility] 01/13/2020 5:42 EST 01/13/2020 5:[address] [facility] - 01/13/2020 6:48 EST Sample collected by ED but method of collection (IV Start or venipuncture) not indicated on sample. Provider Unknown MD PACKAGES & DNA PROBE ORDERABLES [facility] [address] [place] [address] * OSMOLALITY, UR PMC TEMP (01/13/2020 1:57 EST) Osmolality, Ur 239 150 - 1150 mOsm/kg 01/14/2020 18:[address] [facility] Comment: Test Performed by: [place] [address] Auto Crane Driver: Pierre Andersen M.D. Ph.D.; CLIA# [id number] 01/13/2020 1:57 EST 01/13/2020 2:14 EST Provider Unknown CHEMISTRY & BLOOD GA S ORDERABLES Performing Organization Address City/[facility]/ZIP Co de Phone Number [facility] [address] [place] [address] * UA MICROSCOPIC - PMC (01/13/2020 1:57 EST) URINE RBC - PMC None Seen 0 - 2 hpf 0 3:06 [facility] URINE WBC - PMC None seen 0 - 3 hpf 0 3:06 [facility] URINE BACTERIA - PMC None Seen None Seen hpf 01/13/2020 3:06 [facility] URINE MUCUS - PMC None Seen lpf 01/13/2020 3:06 [facility] URINE SQUAMOUS EPITHELIAL CELL - PMC None Seen None-Few hpf 01/13/2020 3:06 [facility] 01/13/2020 1:57 EST 01/13/2020 2:[address] [facility] - 01/13/2020 3:07 EST Clean Catch Provider Unknown CHEMISTRY & BLOOD GA S ORDERABLES [facility] [address] [place] [address] * TROPONIN I (01/13/2020 1:57 EST) [facility] Troponin I (ng/mL) <0.050 0 - 0.056 ng/ml 01/13/2020 2:[address] [facility] Comment: Interpretation: The cutoff for [...] BLOOD GA S ORDERABLES Performing Organization Address [facility] Co de Phone Number [facility] [address] [place] [address] * (ABNORMAL) SODIUM (01/13/2020 1:57 EST) [facility] Sodium 118(CRIT LOW) 136 - 145 mEq/L 01/13/2020 2:[address] [facility] Comment: Results called and read back to me by: Location: ER Full name: LEV JOSHUA Credentials: RN at 0258 on 01/13/20 by TESS. 01/13/2020 1:57 EST 01/13/2020 2:11 EST Provider Unknown CHEMISTRY & BLOOD GA S ORDERABLES [facility] [address] [place] [address] * (ABNORMAL) BNP - PMC (01/13/2020 1:57 EST) Pathologist [facility] B-TYPE NATRIURETIC PEPTIDE - PMC 549(H) <100 pg/mL 01/13/2020 2:[address] [facility] 01/13/2020 1:57 EST 01/13/2020 2:12 EST Provider Unknown CHEMISTRY & BLOOD GA S ORDERABLES [facility] [address] [place] [address] * (ABNORMAL) UA (CULTURE IF POSITIVE) - PMC (01/13/2020 1:57 EST) URINE COLOR - PMC Yellow Straw/Yelow 01/13/2020 2:26 [facility] URINE APPEARANCE - PMC Clear Clr/Hazy 01/13/2020 2:26 [facility] URINE PH - PMC 6.0 5.0 - 9.0 01/13/2020 2:26 [facility] UR SPECIFIC GRAVITY (REFRACTOM) - PMC 1.006 1.001 - 1.035 01/13/2020 2:40 [facility] URINE PROTEIN - PMC Negative Negative mg/dL 01/13/2020 2:26 [facility] URINE GLUCOSE (UA) - PMC Negative Negative mg/dL 01/13/2020 2:26 [facility] URINE KETONES - PMC Trace(A) Negative mg/dL 01/13/2020 2:26 [facility] URINE BILIRUBIN - PMC Negative Negative 01/13/2020 2:26 [facility] URINE BLOOD - PMC Trace(A) Negative 01/13/2020 2:26 [facility] URINE UROBILINOGEN - PMC 0.2 0.2 - 1.0 E.U./dL 01/13/2020 2:26 [facility] URINE NITRATE - PMC Negative Negative 01/13/2020 2:26 [facility] URINE LEUKOCYTE ESTERASE - PMC Negative Negative 01/13/2020 2:26 [facility] URINE CULTURE COMMENTS - PMC CRITERIA NOT MET 01/13/2020 3:06 [facility] Comment:Specimen does not me et criteria for culture. 01/13/2020 1:57 EST 01/13/2020 2:15 EST [facility] - 01/13/2020 3:07 EST Clean Catch Provider Unknown MICROBIOLOGY - GENER AL ORDERABLES [facility] [address] [place] [address] * SODIUM, URINE RANDOM (01/13/2020 1:57 EST) Sodium, Urine 52 20 - 110 mEq/L 01/13/2020 2:[address] [facility] 01/13/2020 1:57 EST 01/13/2020 2:14 EST Provider Unknown MD URINALYSIS ORDERABLE S Performing Organization Address City/State/[facility] Co de Phone Number [facility] [address] [place] [address] documented in this encounter Visit Diagnoses Not on filedocumented in this encounter Care Teams City Superintendent Relationship Specialty Start Date End Date Katia Stone, PA-C [address] [place] [phone] PCP - General 05/02/17 documented as of this encounter
--- OUTSIDE RECORDS SUMMARY | 2023-12-24 18:43 | XMS_ITS | Encounter Summary ---
Author Organization [facility] Address [address] [place] [address] Care Team Providers Care Business Operations Director Name Role Phone Katia Stone PA-C Primary Care Provider [phone]- [phone] Encounter Details Date Type Department Care Team (Late st Contact Info) Description 01/13/2020 Results Only [facility]- [facility] [phone] Jayesh Olmos MD [address] [place] [phone] Social History Tobacco Use Types Packs/Day [...] 136 - 145 mEq/L 01/13/2020 19:16 EST [facility] 01/13/2020 18:5 0 EST 01/13/2020 18:52 EST Jayesh Olmos MD CHEMISTRY & BLO OD GAS ORDERABLES Performing Organization Address [facility] Co de Phone Number [facility] [address] [place] [address] * (ABNORMAL) SODIUM (01/13/2020 13:12 EST) Sodium 126(L) 136 - 145 mEq/L 01/13/2020 13:32 EST [facility] 01/13/2020 13:1 2 EST 01/13/2020 13:15 EST Jayesh Olmos MD CHEMISTRY & BLO OD GAS ORDERABLES Performing Organization Address [facility] de Phone Number [facility] [address] [place] [address] documented in this encounter Visit Diagnoses Not on filedocumented in this encounter Care Teams Business Operations Director Relationship Specialty Start Date End Date Katia Stone PA-C [address] [place] [phone] PCP - General 05/02/17 documented as of this encounter
--- OUTSIDE RECORDS SUMMARY | 2023-12-24 18:43 | XMS_ITS | Encounter Summary ---
Author Organization [facility] Address [address] [place] [address] Care Team Providers Care Insole Stiffener Name Role Phone Katia Stone PA-C Primary Care Provider +1- [phone] Reason for Visit * Reason Onset Date Comments Appointment Related 06/22/2020 Encounter Details Date Type Department Care Team (Late st Contact Info) Description 06/22/2020 Telephone [facility] Cardiothoracic Surgery - [facility] [address] [place] [address] Ja Browne MD [address] [place] [phone] Appointment Related Social History Tobacco Use [...] filedocumented in this encounter Care Teams Insole Stiffener Relationship Specialty Start Date End Date Katia Stone, BELLAC [address] [place] [phone] PCP - General 05/02/17 documented as of this encounter
--- OUTSIDE RECORDS SUMMARY | 2023-12-24 18:43 | XMS_ITS | Encounter Summary ---
Author Organization [facility] Address [address] [place] [address] Care Team Providers Care Dope Edger Name Role Phone Katia Stone PA-C Primary Care Provider +1- [phone] Encounter Details Date Type Department Care Team [...] filedocumented in this encounter Care Teams Dope Edger Relationship Specialty Start Date End Date Katia Stone, MINGO [address] [place] [phone] PCP - General 05/02/17 documented as of this encounter
--- OUTSIDE RECORDS SUMMARY | 2023-12-24 18:43 | XMS_ITS | Encounter Summary ---
Author Organization [facility] Address [address] [place] [address] Care Team Providers Care Seaman Name Role Phone Katia Stone PA-C Primary Care Provider +1- [phone] Encounter Details Date Type Department Care Team (Late st Contact Info) Description 08/08/2020 Results Only [facility] [address] [place] [address] Tony Christy MD [address] [place] [address] Social History Tobacco Use Types [...] 4.0 - 10.5 10 3/uL 08/08/2020 20:51 [facility] RBC 3.15(L) 4.70 - 6.00 10 6/uL 08/08/2020 20:51 [facility] Hemoglobin 11.3(L) 13.5 - 18.0 g/dL 08/08/2020 20:51 [facility] HCT 31.4(L) 42.0 - 52.0 % 08/08/2020 20:51 [facility] MCV 99.7 78 - 100 fL 08/08/2020 20:51 [facility] MCH 35.9(H) 27 - 31 pg 08/08/2020 20:51 [facility] MCHC 36.0 32 - 37 g/dL 08/08/2020 20:51 [facility] RDW-CV - PMC 13.8 <14.7 % 08/08/2020 20:51 [facility] PLATELET COUNT - PMC 199 150 - 450 10 3/uL 08/08/2020 20:51 [facility] MPV 11.2 9.2 - 12.0 fL 08/08/2020 20:51 [facility] NEUTROPHILS % (AUTO) - PMC 81.3 % 08/08/2020 20:51 [facility] LYMPHOCYTES % (AUTO) - PMC 8.6 % 08/08/2020 20:51 [facility] MONOCYTES % (AUTO) - PMC 9.5 % 08/08/2020 20:51 [facility] EOSINOPHILS % (AUTO) - PMC 0.0 % 08/08/2020 20:51 [facility] BASOPHILS % (AUTO) - PMC 0.1 % 08/08/2020 20:51 [facility] Immature Granulocyte % (Auto) 0.5 % 08/08/2020 20:51 [facility] NUCLEATED RBC % (AUTO) - PMC 0.0 % 08/08/2020 20:51 [facility] NEUTROPHILS # (AUTO) - PMC 6.1 1.5 - 6.6 10 3/uL 08/08/2020 20:51 [facility] LYMPHOCYTES # (AUTO) - PMC 0.7(L) 1.0 - 3.5 10 3/uL 08/08/2020 20:51 [facility] MONOCYTES # (AUTO) - PMC 0.7 <1.0 10 3/uL 08/08/2020 20:51 [facility] EOSINOPHILS # (AUTO) - PMC 0.0 <0.7 10 3/uL 08/08/2020 20:51 [facility] Absolute Immature Granulocyte 0.04 <0.06 10 3/uL 08/08/2020 20:51 [facility] DIFFERENTIAL METHOD Auto Differential 08/08/2020 20:48 [facility] 08/08/2020 20:4 2 EDT 08/08/2020 20:46 EDT Tony Christy MD PACKAGES & DNA PRO BE ORDERABLES [facility] [address] [place] [address] * CORONAVIRUS COVID-19 PCR ([facility]) (08/08/2020 17:07 EDT) 08/08/2020 17:0 7 EDT 08/08/2020 17:11 EDT Comment:SWAB Narrative [facility] - 08/08/2020 18:36 EDT ----- ------- ?? RUN DATE: 08/08/20 ? [facility]: [facility] *LIVE* ? PAGE 1 ? RUN TIME: 1837 ?Specimen Inquiry ? ----- ------- ?? PATIENT: DAVID FARFAN ? ACCT: [id number] LOC: ??ED ? U: [id number] ? AGE/SX: 69/M ? ROOM: ?RE08/08/20 ?? REG DR: ??Tony Christy MD ?: ?1950 ?? BED: ? DIS: ? STATUS: REG ER ? TLOC: ? ----- ------- ? SPEC #: [id number] ?ALEX: 08/08/20 ? STATUS: ??COMP ? REQ #: [id number] ?RECD: 08/08/20 ? SUBM DR: Tony Christy [...] terminated or revoked sooner. ?Testing performed on L[employer] instrument ? ----- ------- ? END OF REPORT ? Tony Christy MD MICROBIOLOGY - GEN ERAL ORDERABLES Performing Organization Address [facility] Co de Phone Number [facility] [address] [place] [address] * (ABNORMAL) BNP - PMC (08/08/2020 16:47 EDT) [facility] B-TYPE NATRIURETIC PEPTIDE - PMC 398(H) <100 pg/mL 08/08/2020 17:53 EDT [facility] 08/08/2020 16:4 7 EDT 08/08/2020 16:52 EDT Tony Christy MD CHEMISTRY & BLOOD GAS ORDERABLES Performing Organization Address [facility] de Phone Number [facility] [address] [place] [address] * TROPONIN I (08/08/2020 16:47 EDT) [facility] Troponin I (ng/mL) <0.050 0 [...] BLOOD GAS ORDERABLES Performing Organization Address [facility] Co de Phone Number [facility] [address] [place] [address] * (ABNORMAL) COMPREHENSIVE METABOLIC PANEL (CMP) (08/08/2020 16:47 EDT) [facility] Sodium 125(L) 136 - 145 mEq/L 08/08/2020 17:29 [facility] Potassium 2.9(L) 3.5 - 5.1 mEq/L 08/08/2020 17:29 [facility] Chloride 85(L) 96 - 107 mEq/L 08/08/2020 17:29 [facility] CO2 Total 26.2 21 - 32 mEq/L 08/08/2020 17:29 [facility] Anion Gap 13.8 mEq/L 08/08/2020 17:29 [facility] BUN 8 7 - 25 mg/dl 08/08/2020 17:29 [facility] Creatinine 0.67(L) 0.70 - 1.30 mg/dl 08/08/2020 17:29 [facility] Estimated GFR >60 >60 08/08/2020 17:29 [facility] Comment: EGFR UNITS: mL/min/1.73 m 2 CKD-EPI Equation used to calculate. Glucose 101 74 - 106 mg/dl 08/08/2020 17:29 [facility] Calcium 8.5 8.5 - 10.1 mg/dl 08/08/2020 17:29 [facility] CALCIUM,CORRECTE D - PMC 9.3 8.5 - 10.5 mg/dl 08/08/2020 17:29 [facility] BILIRUBIN - PMC 1.60(H) 0.00 - 1.00 mg/dl 08/08/2020 17:29 [facility] AST 90(H) 15 - 37 U/L 08/08/2020 17:29 [facility] ALT 62 16 - 63 U/L 08/08/2020 17:29 [facility] Alkaline Phosphatase 133(H) 46 - 116 U/L 08/08/2020 17:29 [facility] Total Protein 7.6 6.4 - 8.2 g/dl 08/08/2020 17:29 [facility] Albumin 3.0(L) 3.4 - 5.0 g/dl 08/08/2020 17:29 [facility] GLOBULIN - PMC 4.6 g/dl 08/08/2020 17:29 [facility] ALBUMIN/GLOBULIN RATIO - PMC 0.6 08/08/2020 17:29 [facility] 08/08/2020 16:4 7 EDT 08/08/2020 16:52 EDT Tony Christy MD CHEMISTRY & BLOOD GAS ORDERABLES [facility] [address] [place] [address] * (ABNORMAL) COMPLETE BLOOD COUNT AND DIFFERENTIAL (08/08/2020 16:47 EDT) WBC 7.3 4.0 - 10.5 10 3/uL 08/08/2020 17:14 [facility] RBC 3.32(L) 4.70 - 6.00 10 6/uL 08/08/2020 17:14 [facility] Hemoglobin 11.8(L) 13.5 - 18.0 g/dL 08/08/2020 17:14 [facility] HCT 32.9(L) 42.0 - 52.0 % 08/08/2020 17:14 [facility] MCV 99.1 78 - 100 fL 08/08/2020 17:14 [facility] MCH 35.5(H) 27 - 31 pg 08/08/2020 17:14 [facility] MCHC 35.9 32 - 37 g/dL 08/08/2020 17:14 [facility] RDW-CV - PMC 13.7 <14.7 % 08/08/2020 17:14 [facility] PLATELET COUNT - PMC 209 150 - 450 10 3/uL 08/08/2020 17:14 [facility] MPV 11.4 9.2 - 12.0 fL 08/08/2020 17:14 [facility] NEUTROPHILS % (AUTO) - PMC 81.9 % 08/08/2020 17:14 [facility] LYMPHOCYTES % (AUTO) - PMC 9.1 % 08/08/2020 17:14 [facility] MONOCYTES % (AUTO) - PMC 8.3 % 08/08/2020 17:14 [facility] EOSINOPHILS % (AUTO) - PMC 0.0 % 08/08/2020 17:14 [facility] BASOPHILS % (AUTO) - PMC 0.1 % 08/08/2020 17:14 [facility] Immature Granulocyte % (Auto) 0.6 % 08/08/2020 17:14 [facility] NUCLEATED RBC % (AUTO) - PMC 0.0 % 08/08/2020 17:14 [facility] NEUTROPHILS # (AUTO) - PMC 5.9 1.5 - 6.6 10 3/uL 08/08/2020 17:14 [facility] LYMPHOCYTES # (AUTO) - PMC 0.7(L) 1.0 - 3.5 10 3/uL 08/08/2020 17:14 [facility] MONOCYTES # (AUTO) - PMC 0.6 <1.0 10 3/uL 08/08/2020 17:14 [facility] EOSINOPHILS # (AUTO) - PMC 0.0 <0.7 10 3/uL 08/08/2020 17:14 [facility] Absolute Immature Granulocyte 0.04 <0.06 10 3/uL 08/08/2020 17:14 [facility] DIFFERENTIAL METHOD Auto Differential 08/08/2020 16:54 [facility] 08/08/2020 16:4 7 EDT 08/08/2020 16:52 EDT Tony Christy MD PACKAGES & DNA PRO BE ORDERABLES [facility] [address] [place] [address] documented in this encounter Visit Diagnoses Not on filedocumented in this encounter Care Teams Seaman Relationship Specialty Start Date End Date Katia Stone, MINGO [address] [place] [phone] PCP - General 05/02/17 documented as of this encounter
--- OUTSIDE RECORDS SUMMARY | 2023-12-24 18:43 | XMS_ITS | Encounter Summary ---
Author Organization [facility] Address [address] [place] [address] Care Team Providers Care Backshoe Person Name Role Phone Katia Stone PA-C Primary Care Provider +1- [phone] Reason for Visit * Reason Onset Date Comments Other 05/16/2020 EKG results Encounter Details Date Type Department Care Team (Late st Contact Info) Description 05/16/2020 Telephone [facility] Cardiothoracic Surgery - [address] [address] Cat Sutherland RN Other (EKG results) Social [...] Patient had an EKG in January 2020. [facility] to fax report to [phone]. [facility] I have routed our PA Salvador Roca to see if he wants to repeat on DOSA. documented in this encounter Plan of Treatment Not on file documented as of this encounter Visit Diagnoses Not on filedocumented in this encounter Care Teams Backshoe Person Relationship Specialty Start Date End Date Katia Stone, PA-C [address] [place] [phone] PCP - General 05/02/17 documented as of this encounter
--- OUTSIDE RECORDS SUMMARY | 2023-12-24 18:43 | XMS_ITS | Encounter Summary ---
Author Organization [facility] Address [address] [place] [address] Care Team Providers Care Guard Immigration Name Role Phone Katia Stone PA-C Primary Care Provider +1- [phone] Encounter Details Date Type Department Care Team (Late st Contact Info) Description 01/15/2020 Results Only [facility] [phone] Jayesh Olmos MD [address] [place] [phone] Social History Tobacco Use Types Packs/Day [...] * (ABNORMAL) MAGNESIUM (01/15/2020 6:16 EST) Pathologist [facility] Magnesium 1.6(L) 1.8 - 2.4 mg/dl 01/15/2020 7:55 [facility] 01/15/2020 6:16 EST 01/15/2020 7:24 EST Jayesh Olmos MD CHEMISTRY & BLO OD GAS ORDERABLES LAB [address] [place] [address] * (ABNORMAL) HEPATIC & CMP COMBO,FASTING - PMC (01/15/2020 6:16 EST) Sodium 125(L) 136 - 145 mEq/L 01/15/2020 7:55 [facility] Potassium 3.8 3.5 - 5.1 mEq/L 01/15/2020 7:55 [facility] Chloride 93(L) 96 - 107 mEq/L 01/15/2020 7:55 [facility] CO2 Total 30.1 21 - 32 mEq/L 01/15/2020 7:55 [facility] Anion Gap 3.9 mEq/L 01/15/2020 7:55 [facility] BUN 10 7 - 25 mg/dl 01/15/2020 7:55 [facility] Creatinine 0.67(L) 0.70 - 1.30 mg/dl 01/15/2020 7:55 [facility] Estimated GFR >60 >60 01/15/2020 7:56 [facility] Comment: EGFR UNITS: mL/min/1.73 m 2 CKD-EPI Equation used to calculate. Glucose 92 74 - 106 mg/dl 01/15/2020 7:55 [facility] Calcium 8.2(L) 8.5 - 10.1 mg/dl 01/15/2020 7:55 [facility] CALCIUM,CORRECTE D - PMC 9.2 8.5 - 10.5 mg/dl 01/15/2020 7:55 [facility] BILIRUBIN - PMC 0.60 0.00 - 1.00 mg/dl 01/15/2020 7:55 [facility] AST 46(H) 15 - 37 U/L 01/15/2020 7:55 [facility] ALT 33 16 - 63 U/L 01/15/2020 7:55 [facility] Alkaline Phosphatase 82 46 - 116 U/L 01/15/2020 7:55 [facility] Total Protein 7.0 6.4 - 8.2 g/dl 01/15/2020 7:55 [facility] Albumin 2.8(L) 3.4 - 5.0 g/dl 01/15/2020 7:55 [facility] GLOBULIN - PMC 4.2 g/dl 01/15/2020 7:55 [facility] ALBUMIN/GLOBULIN RATIO - PMC 0.6 01/15/2020 7:55 [facility] 01/15/2020 6:16 EST 01/15/2020 7:24 EST Jayesh Olmos MD CHEMISTRY & BLO OD GAS ORDERABLES LAB [address] [place] [address] * (ABNORMAL) COMPLETE BLOOD COUNT (01/15/2020 6:16 EST) WBC 4.4 4.0 - 10.5 10 3/uL 01/15/2020 7:45 [facility] RBC 3.26(L) 4.70 - 6.00 10 6/uL 01/15/2020 7:45 [facility] Hemoglobin 11.3(L) 13.5 - 18.0 g/dL 01/15/2020 7:45 [facility] HCT 31.2(L) 42.0 - 52.0 % 01/15/2020 7:45 [facility] MCV 95.7 78 - 100 fL 01/15/2020 7:45 [facility] MCH 34.7(H) 27 - 31 pg 01/15/2020 7:45 [facility] MCHC 36.2(H) 32 - 36 g/dL 01/15/2020 7:45 [facility] RDW-CV - PMC 12.8 11.0 - 14.8 % 01/15/2020 7:45 [facility] PLATELET COUNT - PMC 163 150 - 450 10 3/uL 01/15/2020 7:45 [facility] 01/15/2020 6:16 EST 01/15/2020 7:24 EST Jayesh Olmos MD HEMATOLOGY & PF 4 ORDERABLES Performing Organization Address City/State/[facility] Co de Phone Number LAB [address] [place] [address] documented in this encounter Visit Diagnoses Not on filedocumented in this encounter Care Teams Guard Immigration Relationship Specialty Start Date End Date Katia Stone, PABijalC [address] [place] [phone] PCP - General 05/02/17 documented as of this encounter
--- OUTSIDE RECORDS SUMMARY | 2023-12-24 18:43 | XMS_ITS | Encounter Summary ---
Author Organization [facility] Address [address] [place] [address] Care Team Providers Care Drive Tester Name Role Phone Katia Stone PA-C Primary Care Provider +1- [phone] Reason for Visit * Reason Onset Date Comments Confirmation 05/08/2020 Encounter Details Date Type Department Care Team (Late st Contact Info) Description 05/08/2020 Telephone [facility] Cardiothoracic Surgery - [facility] [address] [place] [address] Ja Browne MD [address] [place] [phone] Confirmation Social History Tobacco Use Types [...] 05/08/2020 1128 EST Spoke with Walker higgins [place] and confirmed patient's appointment with Dr. Browne for 05/16/2020 at 9:30 am. documented in this encounter Plan of Treatment Not on file documented as of this encounter Visit Diagnoses Not on filedocumented in this encounter Care Teams Drive Tester Relationship Specialty Start Date End Date Katia Stone, PABijalC [address] [place] [phone] PCP - General 05/02/17 documented as of this encounter
--- OUTSIDE RECORDS SUMMARY | 2023-12-24 18:43 | XMS_ITS | Encounter Summary ---
Author Organization [facility] Address [address] [place] [address] Care Team Providers Care Certified Medical Assistant Name Role Phone Katia Stone PA-C Primary Care Provider +1- [phone] Reason for Visit * Reason Onset Date Comments Pacemaker Problem 05/01/2020 Follow-up 05/03/2020 Encounter Details Date Type Department Care Team (Late st Contact Info) Description 05/01/2020 Telephone [facility] Cardiology - [address] [place], [place] [id number] Tony Rosenberg MD [address] [place] [address] Pacemaker Problem; Follow-up Social History [...] 0909 EST Caller states that pt and ed case manager do not understand what is going on with pt's care. From after-visit notes 04/12, it is clear to fha underwriter that provider intends for pt to see Dr. Browne at [facility]. Caller, ed case manager, and pt are unaware of a referral being sent to [facility], and seem to think that provider is still following care. Please call pt and ed case manager directly to let them know [...] as of this encounter Care Teams Certified Medical Assistant Relationship Specialty Start Date End Date Katia Stone, PABijalC [address] [place] [phone] PCP - General 05/02/17 documented as of this encounter
--- OUTSIDE RECORDS SUMMARY | 2023-12-24 18:43 | XMS_ITS | Encounter Summary ---
Author Organization [facility] Address [address] [place] [address] Care Team Providers Care Bar Captain Name Role Phone Katia Stone PA-C Primary Care Provider +1- [phone] Encounter Details Date Type Department Care Team (Late st Contact Info) Description 08/09/2020 Results Only [facility] Dermatology - [facility] [place] [address] [place] [address] Virginia Quintana MD [address] [place] [address] Social History Tobacco Use Types Packs/Day Years [...] 128(L) 136 - 145 mEq/L 08/09/2020 6:09 [facility] Potassium 3.3(L) 3.5 - 5.1 mEq/L 08/09/2020 6:09 [facility] Chloride 90(L) 96 - 107 mEq/L 08/09/2020 6:09 [facility] CO2 Total 27.4 21 - 32 mEq/L 08/09/2020 6:09 [facility] Anion Gap 10.6 mEq/L 08/09/2020 6:09 [facility] BUN 11 7 - 25 mg/dl 08/09/2020 6:09 [facility] Creatinine 0.71 0.70 - 1.30 mg/dl 08/09/2020 6:09 [facility] Estimated GFR >60 >60 08/09/2020 6:09 [facility] Comment: EGFR UNITS: mL/min/1.73 m 2 CKD-EPI Equation used to calculate. Glucose 117(H) 74 - 106 mg/dl 08/09/2020 6:09 [facility] Calcium 8.3(L) 8.5 - 10.1 mg/dl 08/09/2020 6:09 [facility] CALCIUM,CORRECTE D - PMC 9.4 8.5 - 10.5 mg/dl 08/09/2020 6:24 [facility] BILIRUBIN - PMC 1.30(H) 0.00 - 1.00 mg/dl 08/09/2020 6:24 [facility] AST 62(H) 15 - 37 U/L 08/09/2020 6:24 [facility] ALT 46 16 - 63 U/L 08/09/2020 6:24 [facility] Alkaline Phosphatase 114 46 - 116 U/L 08/09/2020 6:24 [facility] Total Protein 6.7 6.4 - 8.2 g/dl 08/09/2020 6:24 [facility] Albumin 2.6(L) 3.4 - 5.0 g/dl 08/09/2020 6:24 [facility] GLOBULIN - PMC 4.1 g/dl 08/09/2020 6:24 [facility] ALBUMIN/GLOBULIN RATIO - PMC 0.6 08/09/2020 6:24 [facility] 08/09/2020 5:35 EDT 08/09/2020 5:44 EDT Virginia Quintnaa MD CHEMISTRY & BLOOD GA S ORDERABLES [facility] [address] [place] [address] * (ABNORMAL) COMPLETE BLOOD COUNT AND DIFFERENTIAL (08/09/2020 5:35 EDT) WBC 10.3 4.0 - 10.5 10 3/uL 08/09/2020 6:00 [facility] RBC 2.98(L) 4.70 - 6.00 10 6/uL 08/09/2020 6:00 [facility] Hemoglobin 10.6(L) 13.5 - 18.0 g/dL 08/09/2020 6:00 [facility] HCT 29.6(L) 42.0 - 52.0 % 08/09/2020 6:00 [facility] MCV 99.3 78 - 100 fL 08/09/2020 6:00 [facility] MCH 35.6(H) 27 - 31 pg 08/09/2020 6:00 [facility] MCHC 35.8 32 - 37 g/dL 08/09/2020 6:00 [facility] RDW-CV - PMC 13.8 <14.7 % 08/09/2020 6:00 [facility] PLATELET COUNT - PMC 179 150 - 450 10 3/uL 08/09/2020 6:00 [facility] MPV 11.6 9.2 - 12.0 fL 08/09/2020 6:00 [facility] NEUTROPHILS % (AUTO) - PMC 84.2 % 08/09/2020 6:00 [facility] LYMPHOCYTES % (AUTO) - PMC 7.2 % 08/09/2020 6:00 [facility] MONOCYTES % (AUTO) - PMC 8.0 % 08/09/2020 6:00 [facility] EOSINOPHILS % (AUTO) - PMC 0.0 % 08/09/2020 6:00 [facility] BASOPHILS % (AUTO) - PMC 0.1 % 08/09/2020 6:00 [facility] Immature Granulocyte % (Auto) 0.5 % 08/09/2020 6:00 [facility] NUCLEATED RBC % (AUTO) - PMC 0.0 % 08/09/2020 6:00 [facility] NEUTROPHILS # (AUTO) - PMC 8.7(H) 1.5 - 6.6 10 3/uL 08/09/2020 6:00 [facility] LYMPHOCYTES # (AUTO) - PMC 0.7(L) 1.0 - 3.5 10 3/uL 08/09/2020 6:00 [facility] MONOCYTES # (AUTO) - PMC 0.8 <1.0 10 3/uL 08/09/2020 6:[address] [facility] EOSINOPHILS # (AUTO) - PMC 0.0 <0.7 10 3/uL 08/09/2020 6:[address] [facility] Absolute Immature Granulocyte 0.05 <0.06 10 3/uL 08/09/2020 6:[address] [facility] DIFFERENTIAL METHOD Auto Differential 08/09/2020 5:[address] [facility] 08/09/2020 5:35 EDT 08/09/2020 5:44 EDT Virginia Quintana MD PACKAGES & DNA PROBE ORDERABLES Performing Organization Address City/State/[facility] Co de Phone Number [facility] [address] [place] [address] * C DIFFICILE TOXIN PCR, F > 2 YRS - PMC (08/09/2020 3:24 EDT) 08/09/2020 3:24 EDT 08/10/2020 5:39 EDT Comment:KWASI Narrative [facility] - 08/10/2020 6:26 EDT ----- ------- ?? RUN DATE: 08/10/20 ? [facility]: [facility] *LIVE* ? PAGE 1 ? RUN TIME: 625 ?Specimen Inquiry ? ----- ------- ?? PATIENT: DAVID FARFAN ? ACCT: [id number] LOC: ??MS ? U: [id number] ? AGE/SX: 69/M ? ROOM: 138 ?RE08/09/20 ?? REG DR: ??Ester Valerio MD ? : ?1950 ?? BED: ??1 ?DIS: ? STATUS: ADM Astrid ?TLOC: ? ----- ------- ? SPEC #: [id number] ?ALEX: 08/09/20-323 ? STATUS: ??COMP ? REQ #: [id number] ?RECD: 08/10/20 ? SUBM DR: Jennifer Tyson [...] Quintana MD MICROBIOLOGY - GENER AL ORDERABLES [facility] [address] [place] [address] documented in this encounter Visit Diagnoses Not on filedocumented in this encounter Care Teams Bar Captain Relationship Specialty Start Date End Date Katia Stone, PABijalC [address] [place] [id number] PCP - General 05/02/17 documented as of this encounter
--- OUTSIDE RECORDS SUMMARY | 2023-12-24 18:43 | XMS_ITS | Encounter Summary ---
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, initial encounter Procedures XR CHEST 2 VIEWS José Miguel Roca PA-C [address] [facility], [facility] [address] [place] [address] Referral ID Status Reason Start Date Expiration Date Visits Re quested Visits Authorized [id number] Closed 05/16/2020 1 1 Reason for Visit [...] Rosenberg MD [address] [place] [address] Ja Browne MD [address] [place], [place] [address]Lat[place] [address] [address] Referral ID Status Reason Start Date Expiration Date Visits Re quested Visits Authorized [id number] Closed 1 1 Encounter Details Date Type Department Care Team (Latest Contact Info) Description 05/16/2020 9:30 EDT Office Visit [facility] Cardiothoracic Surgery - [address] [place] [address] Ja Browne MD [address] [place] [address] Displacement of electrode lead of [...] the Division of Cardiothoracic Surgery at the [facility]. We look forward to making your stay a safe, comfortable and pleasant experience. ??? Your surgery is scheduled on: To Be Announced ??? Please plan to arrive at: To Be Announced ??? When you arrive you should report to Registration on Level 3 (street level), located near the Main Entrance of the Statistician Center at the [facility]. Due to COVID, there is [...] this appointment please contact our office at [phone]. We have included a local lodging list should you or your family require accommodations around the time of your surgery. Discounts may apply for family members of patients being hospitalized, please ask the hotel when booking. If you have cancer, you and your family member are eligible to stay at the [employer] [place]. The Oncology Patient Navigator can be reached at [phone] for assistance with this. You should receive [...] days prior to your surgery. Stop Saw [place] 14 days prior to surgery. ??? Acetaminophen [...] IF THIS CHANGES, CALL OUR OFFICE AT [phone]. Continue to take all of your other [...] helpful. ??? Do not wear any nail indian, makeup, powder, lotion, deodorant or jewelry of [...] them with an appointment contact them at [phone] as the test MUST BE DONE 72 [...] to the Surgeon's office on Level 5 [facility] Outpatient office. Note: If for some reason [...] listed below. The Division of Cardiothoracic Surgery [address] [place] [address] (Toll Free) MD Geovanni Toure MD Marek [...] file Gets together: Not on file Attends church service: Not on file Active member of [...] Thank you. Ja Browne MD Cardiothoracic Surgery [phone] (office) 05/16/2020 10:36 * Cat Sutherland RN - 05/16/2020 0941 EDT Cardiac Surgery Nursing Pre-Operative Teaching ELECTIVES [...] daily. added in this encounter Care Teams Loading Unit Operator Crimping Relationship Specialty Start Date End Date Katia Stone PA-C [address] [place] [phone] PCP - General 05/02/17 documented as of this encounter
--- OUTSIDE RECORDS SUMMARY | 2023-12-24 18:43 | XMS_ITS | Encounter Summary ---
Author Organization [facility] Address [address] [place] [address] Care Team Providers Care Morning Show Host Name Role Phone Katia Stone PA-C Primary Care Provider +1- [phone] Reason for Visit * Reason Onset Date Comments Other 06/07/[address] Surgery RN Other 06/08/2020 mailed pre-op in structions to patient Encounter Details Date Type Department Care Team (Late st Contact Info) Description 06/07/2020 Telephone [facility] Cardiothoracic Surgery - Main [place] [address] [place] [address] Ja Browne MD [address] [place] [address] Other (questions for CT Surgery RN); [...] encounter Miscellaneous Notes * Telephone Encounter - eMlania Dumas - 06/08/2020 1710 EDT Pre-op instructions mailed to patient at: [address] [place] [phone] Address updated in [facility]. * Telephone Encounter - Cat Sutherland RN - 06/07/2020 1526 EDT Called and left message for Maru Villalobos RN at [place] [facility] to get correct address (mailing address) for patient and then have changed in Registration as he doesn't live in [place] anymore. She was going to call us [...] located near the Main Entrance of the Environmental Designer Center at the [facility]. Prior to surgery, you will be scheduled for an anesthesia pre-screen telephone call with the Pre-Operative Department ??? Your telephone call has been scheduled for: To Be Announced between To Be Announced and To Be Announced ??? If you do not receive an appointment for the pre-screen call within two days of this appointment, please contact our office at [phone]. We have included a local lodging list [...] days prior to your surgery. Stop Saw [place] 14 days prior to surgery. ??? Acetaminophen [...] CHANGED, CALL OUR OFFICE RIGHT AWAY AT [phone]) ??? Continue to take all of your [...] clothing. ??? Do not wear any nail turkish, makeup, powder, lotion, deodorant or jewelry of [...] results. The Patient Access Center at [facility] will contact you with an appointment at [...] AN APPOINTMENT CONTACT THE PATIENT ACCESS CENTERAT [phone]. ??? While waiting for your surgery, you [...] on Level 3 (street level of the [facility]) for this. Following check-in, you will [...] below. The Division of Cardiothoracic Surgery [address] [place] [phone] (Toll Free) MD Geovanni Toure MD Marek Polomsky, MD Chris Rokkas, MD /josh & ep 03/2020 * Telephone Encounter - Cat Sutherland RN - 06/07/[address] Surgery [place] Maru Villalobos, welding machine operator electroslag at [facility] [phone] [phone] states patient's son and and is not on Adv Directive now. Questions call Maru Villalobos. Pre-Op Instructions mailed to patient and faxed to Maru [phone]. She will review with the patient and I will as well. Check in time for surgery on 06/26 has not been confirmed yet per our Data Modeling Architect. Maru will set up COVID test as he needs a cat driver and he will also need a ride to [place] for surgery which she will arrange. * Telephone Encounter - Melania Dumas - 06/07/2020 1013 EDT Maru from [place] calling with questions for CT Surgery RN. Requesting return call to [phone], extension [phone]. documented in this encounter Plan of Treatment Not on file documented as of this encounter Visit Diagnoses Diagnosis Encounter for preoperative screening laboratory testing for COVID-19 virus- Primary documented in this encounter Care Teams Morning Show Host Relationship Specialty Start Date End Date Katia Stone, PABijalC [address] [place] [phone] PCP - General 05/02/17 documented as of this encounter
--- OUTSIDE RECORDS SUMMARY | 2023-12-24 18:43 | XMS_ITS | Encounter Summary ---
Author Organization [facility] Address [address] [place] [address] Care Team Providers Care Preventive Medicine Specialist Name Role Phone Katia Stone PA-C Primary Care Provider +1- [phone] Encounter Details Date Type Department Care Team (Late st Contact Info) Description 08/08/2020 Results Only [facility] Dermatology - [facility] [place] [address] [place] [address] Virginia Quintana MD [address] [place] [address] Social History Tobacco Use Types Packs/Day Years [...] Requests ADD ON DONE 08/08/2020 21:57 EDT [facility] Comment: All tests (see tests in sample comments) have been added as requested. 08/08/2020 21:1 7 EDT 08/08/2020 21:57 EDT Narrative [facility] - 08/08/2020 21:57 EDT ED this evening Mg Virginia Quintana MD CHEMISTRY & BLOOD GA S ORDERABLES Performing Organization Address [facility] Co de Phone Number [facility] [address] [place] [address] * (ABNORMAL) MAGNESIUM (08/08/2020 16:47 EDT) Magnesium 1.7(L) 1.8 - 2.4 mg/dl 08/08/2020 22:02 EDT [facility] 08/08/2020 16:4 7 EDT 08/08/2020 16:52 EDT Virginia Quintana MD CHEMISTRY & BLOOD GA S ORDERABLES Performing Organization Address [facility] Co de Phone Number [facility] [address] [place] [address] documented in this encounter Visit Diagnoses Not on filedocumented in this encounter Care Teams Preventive Medicine Specialist Relationship Specialty Start Date End Date Katia Stone, PABijalC [address] [place] [phone] PCP - General 05/02/17 documented as of this encounter
--- OUTSIDE RECORDS SUMMARY | 2023-12-24 18:43 | XMS_ITS | Encounter Summary ---
Author Organization [facility] Address [address] [place] [address] Care Team Providers Care Alumni Relations Manager Name Role Phone Katia Stone PA-C Primary Care Provider +1- [phone] Reason for Visit * Reason Onset Date Comments Other 06/13/2020 Encounter Details Date Type Department Care Team (Late st Contact Info) Description 06/13/2020 Telephone [facility] Cardiothoracic Surgery - [address] [address] Cat Sutherland RN Other Social History Tobacco [...] for surgery at 1210 on 06/26. His Assistant Director Of Financial Aid with PCP is setting up his ride for [place] on 06/26 and for his COVID test that will need to be done 3-4 days prior to surgery. Patient verbalized understanding. I called the patient's Assistant Director Of Financial Aid at [facility] at [phone] and left her a message (Maru Villalobos, TIHS). She will be arranging his ride to [place] on [place] and for his COVID test. I have updated our CROP ADJUSTER and Beulah FAIR CM at [facility] as well. documented in this encounter Plan of Treatment Not on file documented as of this encounter Visit Diagnoses Not on filedocumented in this encounter Care Teams Alumni Relations Manager Relationship Specialty Start Date End Date Katia Stone, BELLAC [address] [place] [phone] PCP - General 05/02/17 documented as of this encounter
--- OUTSIDE RECORDS SUMMARY | 2023-12-24 18:43 | XMS_ITS | Encounter Summary ---
Author Organization [facility] Address [address] [place] [address] Care Team Providers Care Rotor Casting Machine Operator Name Role Phone Katia Stone PA-C Primary Care Provider +1- [phone] Reason for Visit * Reason Onset Date Comments Appointment Related 06/16/2020 Encounter Details Date Type Department Care Team (Late st Contact Info) Description 06/16/2020 Telephone [facility] Cardiothoracic Surgery - [address] [address] Ghazala Sutherland RN Appointment Related Social History [...] Encounter - Ghazala Sutherland RN - 06/16/[address] Surgery Update Message left for pt that the Pre-Op Center will call him on Monday 06/19 between 4 - 4:45 PM. I alsoleft him a message to be sure and connect with his Founder President And Ceo at PCP office to get his COVID test3-4 days prior to surgery. Surgery is on 06/26. GHAZALA SUTHERLAND RN documented in this encounter Plan of Treatment Not on file documented as of this encounter Visit Diagnoses Not on filedocumented in this encounter Care Teams Rotor Casting Machine Operator Relationship Specialty Start Date End Date Katia Stone, PABijalC [address] [place] [address] PCP - General 05/02/17 documented as of this encounter
--- OUTSIDE RECORDS SUMMARY | 2023-12-24 18:44 | XMS_ITS | Encounter Summary ---
Author Organization [facility] Address [address] [place] [address] Care Team Providers Care Optics Test Technician Name Role Phone Katia Stone PA-C Primary Care Provider +1- [phone] Encounter Details Date Type Department Care Team (Late st Contact Info) Description 05/28/2018 Historical Results Only [facility] Radiology Results [address] [place], [place] [address] Haja Richmond MD [address] [place] [phone] Social History Tobacco Use Types Packs/Day [...] - PMC 129(H) <100 05/28/2018 1:18 EDT [facility] 05/28/2018 0:45 EDT 05/28/2018 0:55 EDT Haja Richmond MD CHEMISTRY & BLOOD G ORDERABLES [facility] * (ABNORMAL) COMPLETE BLOOD COUNT AND DIFFERENTIAL (05/28/2018 0:45 EDT) WBC 10.2 4.0 - 10.5 05/28/2018 0:59 EDT [facility] RBC 3.77(L) 4.70 - 6.00 05/28/2018 0:59 EDT [facility] Hemoglobin 12.7(L) 13.5 - 18.0 05/28/2018 0:59 EDT [facility] HCT 35.3(L) 42.0 - 52.0 05/28/2018 0:59 EDT [facility] MCV 93.6 78 - 100 05/28/2018 0:59 [facility] MCH 33.7(H) 27 - 31 05/28/2018 0:59 [facility] MCHC 36.0 32 - 36 05/28/2018 0:59 [facility] RDW-CV - PMC 12.0 11.5 - 14.0 05/28/2018 0:59 [facility] PLATELET COUNT - PMC 306 150 - 450 05/28/2018 0:59 [facility] NEUTROPHILS % (AUTO) - PMC 76.5(H) 42.0 - 75.0 05/28/2018 0:59 [facility] LYMPHOCYTES % (AUTO) - PMC 14.0(L) 16.0 - 52.0 05/28/2018 0:59 [facility] MONOCYTES % (AUTO) - PMC 7.9 1.0 - 11.0 05/28/2018 0:59 [facility] EOSINOPHILS % (AUTO) - PMC 0.2 0.0 - 7.0 05/28/2018 0:59 [facility] BASOPHILS % (AUTO) - PMC 0.2 0.0 - 4.0 05/28/2018 0:59 [facility] NUCLEATED RBC % (AUTO) - PMC 0.0 <1 05/28/2018 0:59 [facility] NEUTROPHILS # (AUTO) - PMC 7.8(H) 1.5 - 6.6 05/28/2018 0:59 [facility] LYMPHOCYTES # (AUTO) - PMC 1.4 1.0 - 3.5 05/28/2018 0:59 [facility] MONOCYTES # (AUTO) - PMC 0.8 <1.0 05/28/2018 0:59 [facility] EOSINOPHILS # (AUTO) - PMC 0.0 <0.7 05/28/2018 0:59 [facility] BASOPHILS # (AUTO) - PMC 0.0 <0.1 05/28/2018 0:59 [facility] NUCLEATED RBC # (AUTO) - PMC 0.00 <1 05/28/2018 0:59 [facility] 05/28/2018 0:45 EDT 05/28/2018 0:55 EDT Haja Richmond MD PACKAGES & DNA PROB E ORDERABLES Performing Organization Address [facility]/ZIP Co de Phone Number [facility] * TROPONIN I (05/28/2018 0:45 EDT) [facility] Troponin I (ng/mL) <0.05 <0.10 05/28/2018 1:23 EDT [facility] Comment: REFERENCE RANGE: Negative: ? <0.10 ng/mL Indeterminate: 0.10-0.80 ng/mL Positive: ? >0.80 ng/mL ........................................... The results of this assay can be falsely decreased due to the consumption of Biotin. 05/28/2018 0:45 EDT 05/28/2018 0:56 EDT Haja Richmond MD CHEMISTRY & BLOOD G ORDERABLES Performing Organization Address [facility] Co de Phone Number [facility] * (ABNORMAL) HEPATIC & CMP COMBO,FASTING - PMC (05/28/2018 0:45 EDT) [facility] Sodium 120(L) 136 - 145 05/28/2018 1:21 [facility] Potassium 4.0 3.5 - 5.1 05/28/2018 1:21 [facility] Chloride 83(L) 96 - 107 05/28/2018 1:21 [facility] CO2 Total 25.9 21 - 32 05/28/2018 1:21 [facility] Anion Gap 11.1 05/28/2018 1:21 [facility] BUN 6(L) 7 - 25 05/28/2018 1:21 [facility] Creatinine 0.60(L) 0.7 - 1.30 05/28/2018 1:21 [facility] Estimated GFR >60 >60 05/28/2018 1:25 [facility] Comment: EGFR UNITS: mL/min/1.73 m 2 CKD-EPI Equation used to calculate. Glucose 122 70 - 180 05/28/2018 1:21 [facility] Calcium 9.1 8.5 - 10.5 05/28/2018 1:21 [facility] CALCIUM,CORRECTE D - PMC 9.8 8.5 - 10.5 05/28/2018 1:21 [facility] BILIRUBIN - PMC 0.30 0.00 - 1.00 05/28/2018 1:21 [facility] AST 90(H) 15 - 37 05/28/2018 1:21 [facility] ALT 87(H) 12 - 78 05/28/2018 1:21 [facility] Alkaline Phosphatase 89 46 - 116 05/28/2018 1:21 [facility] Total Protein 8.3(H) 6.4 - 8.2 05/28/2018 1:21 [facility] Albumin 3.1(L) 3.4 - 5.0 05/28/2018 1:21 [facility] GLOBULIN - PMC 5.2 05/28/2018 1:21 [facility] ALBUMIN/GLOBULIN RATIO - PMC 0.5 05/28/2018 1:21 [facility] 05/28/2018 0:45 EDT 05/28/2018 0:56 EDT Haja Raulito Richmond MD CHEMISTRY & BLOOD G ORDERABLES [facility] * XR CHEST 2 VIEWS (05/28/2018 0:11 EDT) Anatomical Region Laterality Modality Other 05/28/2018 0:11 EDT Narrative 05/28/2018 0:11 EDT [facility]: [address] [address] Diagnostic Imaging Report Signed Patient Name:DAVID FARFAN ? Date of :1950 ? MR Number:[id number] Age:67 ?Sex:M Category: CR ? Date of [...] Procedure Note Alma Sherwood [facility] - [facility] [place] [address] Diagnostic Imaging Report Signed Patient Name:DAVID FARFAN Number:[id number] Date of :1950 MRNumber:[id number] Age:67 Sex:M Category: CR Date ofExam:05/28/18 Procedure: CR: Chest; Frontal/LAT viewsAccession: [id number] Ordering Physician: Haja Richmond MD CC: Haja [...] as of this encounter Care Teams Optics Test Technician Relationship Specialty Start Date End Date Katia Stone, MINGO [address] [place] [phone] PCP - General 05/02/17 documented as of this encounter
--- OUTSIDE RECORDS SUMMARY | 2023-12-24 18:44 | XMS_ITS | Encounter Summary ---
Author Organization [facility] Address [address] [place] [address] Care Team Providers Care Associate Automation Engineer Name Role Phone Katia Stone PA-C Primary Care Provider +1- [phone] Encounter Details Date Type Department Care Team (Late st Contact Info) Description 06/11/2017 Results Only Imaging [facility] Adult Primary Care - [address] [id number] Michael Pratt MD [facility] [place] [address] Social History Tobacco Use Types [...] - there is no report. Procedure Note FINAL CLEANER, IMAGING - 06/13/2017 This is an outside study - there is no report. Michael Pratt MD IMG OTHER IMAGING OR DERABLES documented in this encounter Visit Diagnoses Not on filedocumented in this encounter Care Teams Associate Automation Engineer Relationship Specialty Start Date End Date Katia Stone, PABijalC [address] [place] [address] PCP - General 05/02/17 documented as of this encounter
--- OUTSIDE RECORDS SUMMARY | 2023-12-24 18:44 | XMS_ITS | Encounter Summary ---
Author Organization [facility] Address [address] [place] [address] Care Team Providers Care Director Of Midwifery/Staff Midwife Name Role Phone Katia Stone PA-C Primary Care Provider +1- [phone] Encounter Details Date Type Department Care Team (Late st Contact Info) Description 06/18/2018 Historical Results Only [facility] [address] [place], [place] [address] Katia Stone, MINGO [address] [place] [address] Social History Tobacco Use Types [...] Sodium 125(L) 136 - 145 06/18/2018 13:02 [facility] Potassium 4.9 3.5 - 5.1 06/18/2018 13:02 [facility] Chloride 88(L) 96 - 107 06/18/2018 13:02 [facility] CO2 Total 27.6 21 - 32 06/18/2018 13:02 [facility] Anion Gap 8.4 06/18/2018 13:02 [facility] BUN 8 7 - 25 06/18/2018 13:02 [facility] Creatinine 0.69(L) 0.7 - 1.30 06/18/2018 13:02 [facility] Estimated GFR >60 >60 06/18/2018 13:03 [facility] Comment: EGFR UNITS: mL/min/1.73 m 2 CKD-EPI Equation used to calculate. Glucose 86 FASTIN -99 06/18/2018 13:02 [facility] Calcium 8.4(L) 8.5 - 10.5 06/18/2018 13:02 [facility] CALCIUM,CORRECTE D - PMC 8.9 8.5 - 10.5 06/18/2018 13:02 [facility] BILIRUBIN - PMC 0.60 0.00 - 1.00 06/18/2018 13:02 [facility] AST 63(H) 15 - 37 06/18/2018 13:02 [facility] ALT 58 12 - 78 06/18/2018 13:02 [facility] Alkaline Phosphatase 94 46 - 116 06/18/2018 13:02 EDT [facility] Total Protein 7.3 6.4 - 8.2 06/18/2018 13:02 [facility] Albumin 3.4 3.4 - 5.0 06/18/2018 13:02 [facility] GLOBULIN - PMC 3.9 06/18/2018 13:02 [facility] ALBUMIN/GLOBULIN RATIO - PMC 0.8 06/18/2018 13:02 [facility] 06/18/2018 12:1 4 EDT 06/18/2018 12:16 EDT Katia Stone PA-C CHEMISTRY & BLOOD GAS ORDERABLES [facility] documented in this encounter Visit Diagnoses Not on filedocumented in this encounter Care Teams Director Of Midwifery/Staff Midwife Relationship Specialty Start Date End Date Katia Stone PA-C [address] [place] [phone] PCP - General 05/02/17 documented as of this encounter
--- OUTSIDE RECORDS SUMMARY | 2023-12-24 18:44 | XMS_ITS | Encounter Summary ---
Author Organization [facility] Address [address] [place] [address] Care Team Providers Care Step Down Specialist Name Role Phone Katia Stone PA-C Primary Care Provider +1- [phone] Reason for Visit * Reason Onset Date Comments Update 06/12/2017 on admission to [facility] Encounter Details Date Type Department Care Team (Late st Contact Info) Description 06/12/2017 Telephone [facility] Cardiology - [address] [place] [address] Tony Rosenberg MD [address] [place] [address] [address] [place] [address] Update (on admission to [facility]) Social History Tobacco Use Types [...] EDT The pt has been admitted to [facility] * Telephone Encounter - Belinda Falk [...] Reason for Call: Update (on admission to [facility]) Summary/Symptoms: Yessica would like to speak to the nurse regarding this patient being admitted to [facility] today at Dr. Guevara request Andra Gonzáles 06/12/2017 9:24 documented in this encounter Plan of Treatment Not on file documented as of this encounter Visit Diagnoses Not on filedocumented in this encounter Care Teams Step Down Specialist Relationship Specialty Start Date End Date Ktaia Stone, MINGO [address] [place] [phone] PCP - General 05/02/17 documented as of this encounter
--- OUTSIDE RECORDS SUMMARY | 2023-12-24 18:44 | XMS_ITS | Encounter Summary ---
Author Organization [facility] Address [address] [place] [address] Care Team Providers Care Solar Energy Systems Engineer Name Role Phone Katia Stone PA-C Primary Care Provider +1- [phone] Reason for Visit * Reason Onset Date Comments Other 07/16/2017 Encounter Details Date Type Department Care Team (Late st Contact Info) Description 07/16/2017 Telephone [facility] Cardiology - [place] [address] Caitie Atwood, TAIWO [address] [facility] [address] [place] [address] Other Social History Tobacco Use [...] 07/16/2017 1358 EDT I spoke to the customer care specialist at the [place] primary care offices. There following the patient.He [...] filedocumented in this encounter Care Teams Solar Energy Systems Engineer Relationship Specialty Start Date End Date Katia Stone, MINGO [address] [place] [phone] PCP - General 05/02/17 documented as of this encounter
--- OUTSIDE RECORDS SUMMARY | 2023-12-24 18:44 | XMS_ITS | Encounter Summary ---
Author Organization [facility] Address [address] [place] [address] Care Team Providers Care Heel Shaper Name Role Phone Katia Stone PA-C Primary Care Provider +1- [phone] Encounter Details Date Type Department Care Team (Late st Contact Info) Description 07/19/2018 Historical Results Only [facility] [address] [place] [address] Vick Limon MD [address] [place] [address] Social History Tobacco Use Types [...] WBC 8.1 4.0 - 10.5 07/19/2018 18:47 [facility] RBC 3.65(L) 4.70 - 6.00 07/19/2018 18:47 [facility] Hemoglobin 12.5(L) 13.5 - 18.0 07/19/2018 18:47 [facility] HCT 34.2(L) 42.0 - 52.0 07/19/2018 18:47 [facility] MCV 93.7 78 - 100 07/19/2018 18:47 [facility] MCH 34.2(H) 27 - 31 07/19/2018 18:47 [facility] MCHC 36.5(H) 32 - 36 07/19/2018 18:47 [facility] RDW-CV - PMC 12.4 11.5 - 14.0 07/19/2018 18:47 [facility] PLATELET COUNT - PMC 158 150 - 450 07/19/2018 18:47 [facility] NEUTROPHILS % (AUTO) - PMC 63.5 42.0 - 75.0 07/19/2018 18:47 [facility] LYMPHOCYTES % (AUTO) - PMC 22.6 16.0 - 52.0 07/19/2018 18:47 [facility] MONOCYTES % (AUTO) - PMC 9.6 1.0 - 11.0 07/19/2018 18:47 [facility] EOSINOPHILS % (AUTO) - PMC 2.9 0.0 - 7.0 07/19/2018 18:47 [facility] BASOPHILS % (AUTO) - PMC 0.7 0.0 - 4.0 07/19/2018 18:47 [facility] NUCLEATED RBC % (AUTO) - PMC 0.0 <1 07/19/2018 18:47 [facility] NEUTROPHILS # (AUTO) - PMC 5.2 1.5 - 6.6 07/19/2018 18:47 [facility] LYMPHOCYTES # (AUTO) - PMC 1.8 1.0 - 3.5 07/19/2018 18:47 [facility] MONOCYTES # (AUTO) - PMC 0.8 <1.0 07/19/2018 18:47 [facility] EOSINOPHILS # (AUTO) - PMC 0.2 <0.7 07/19/2018 18:47 [facility] BASOPHILS # (AUTO) - PMC 0.1 <0.1 07/19/2018 18:47 [facility] NUCLEATED RBC # (AUTO) - PMC 0.00 <1 07/19/2018 18:47 [facility] 07/19/2018 18:3 0 EDT 07/19/2018 18:34 EDT Vick Limon MD PACKAGES & DNA PROBE ORDERABLES [facility] * (ABNORMAL) BASIC METABOLIC PANEL,RANDOM - PMC (07/19/2018 18:30 EDT) Sodium 120(L) 136 - 145 07/19/2018 18:52 [facility] Potassium 4.4 3.5 - 5.1 07/19/2018 18:52 [facility] Chloride 83(L) 96 - 107 07/19/2018 18:52 [facility] CO2 Total 24.6 21 - 32 07/19/2018 18:52 [facility] Anion Gap 13.4 07/19/2018 18:52 [facility] BUN 8 7 - 25 [facility]2018 [facility] Creatinine 0.67(L) 0.7 - 1.30 07/19/2018 18:52 [facility] Estimated GFR >60 >60 07/19/2018 19:01 [facility] Comment: EGFR UNITS: mL/min/1.73 m 2 CKD-EPI Equation used to calculate. Glucose 78 70 - 180 07/19/2018 18:52 [facility] Calcium 8.2(L) 8.5 - 10.5 07/19/2018 18:52 [facility] 07/19/2018 18:3 0 EDT 07/19/2018 18:34 EDT Vick Limon MD CHEMISTRY & BLOOD GA S ORDERABLES Performing Organization Address City/[facility]/ZIP Co de Phone Number [facility] * POCT GLUCOSE (NURSING) - PMC (07/19/2018 18:21 EDT) POC CAPILLARY GLUCOSE - [facility] 86 70 - 100 07/19/2018 18:23 EDT [facility] 07/19/2018 18:2 1 EDT 07/19/2018 18:23 EDT Vick Limon MD POINT OF CARE TEST O RDERABLES [facility] documented in this encounter Visit Diagnoses Not on filedocumented in this encounter Care Teams Heel Shaper Relationship Specialty Start Date End Date Katia Stone, PABijalC [address] [place] [phone] PCP - General 05/02/17 documented as of this encounter
--- OUTSIDE RECORDS SUMMARY | 2023-12-24 18:44 | XMS_ITS | Encounter Summary ---
Author Organization [facility] Address [address] [place] [address] Care Team Providers Care Management Scientist Name Role Phone Katia Stone PA-C Primary Care Provider +1- [phone] Encounter Details Date Type Department Care Team (Late st Contact Info) Description 12/12/2018 Results Only [facility] [address] [place] [address] [place] [address] Wang Vila MD [address] [facility] [address] [place] [address] Social History Tobacco Use Types [...] 3.4 - 5.0 g/dl 12/12/2018 23:24 EDT [facility] GLOBULIN - PMC 4.4 g/dl 12/12/2018 23:24 EDT [facility] ALBUMIN/GLOBULIN RATIO - PMC 0.6 12/12/2018 23:24 EDT [facility] 12/12/2018 22:1 6 EDT 12/12/2018 23:12 EDT Wang Vila MD CHEMISTRY & BLOOD GA S ORDERABLES Performing Organization Address [facility] Co de Phone Number [facility] * PROCALCITONIN - PMC (12/12/2018 22:16 EDT) Procalcitonin <0.05 <0.50 ng/mL 12/12/2018 23:13 EDT [facility] Comment: Concentration of < 0.5 [...] & PF4 ORD ERABLES Performing Organization Address City/[facility]/ZIP Co de Phone Number [facility] * (ABNORMAL) BNP - PMC (12/12/2018 22:15 EDT) B-TYPE NATRIURETIC PEPTIDE - PMC 123(H) <100 pg/mL 12/12/2018 22:40 EDT [facility] 12/12/2018 22:1 5 EDT 12/12/2018 22:19 EDT Wang Vila MD CHEMISTRY & BLOOD GA S ORDERABLES Performing Organization Address [facility] de Phone Number [facility] * TROPONIN I (12/12/2018 22:06 EDT) Pathologist [facility] Troponin I (ng/mL) <0.05 <0.10 ng/ml 12/12/2018 [...] Organization Address [facility] de Phone Number [facility] * (ABNORMAL) BASIC METABOLIC PANEL,RANDOM - PMC (12/12/2018 22:06 EDT) [facility] Sodium 120(L) 136 - 145 mEq/L 12/12/2018 [...] 70 - 180 mg/dl 12/12/2018 23:00 EDT [facility] Calcium 8.1(L) 8.5 - 10.5 mg/dl 12/12/2018 23:00 EDT [facility] 12/12/2018 22:0 6 EDT 12/12/2018 22:18 EDT Wang Vila MD CHEMISTRY & BLOOD GA S ORDERABLES [facility] documented in this encounter Visit Diagnoses Not on filedocumented in this encounter Care Teams Management Scientist Relationship Specialty Start Date End Date Katia Stone, PABijalC [address] [place] [phone] PCP - General 05/02/17 documented as of this encounter
--- OUTSIDE RECORDS SUMMARY | 2023-12-24 18:44 | XMS_ITS | Encounter Summary ---
Author Organization [facility] Address [address] [place] [address] Care Team Providers Care Project Planner Name Role Phone Katia Stone PA-C Primary Care Provider +1- [phone] Encounter Details Date Type Department Care Team (Late st Contact Info) Description 12/12/2018 Results Only Imaging [facility] Radiology Results [address] [place] [address] Wang Vila MD [address] [facility], Level [address] [place] [address] Social History Tobacco Use Types [...] 22:1 5 EDT Narrative 12/12/2018 22:15 EDT [facility] ?[address] ?[place] [address] ?Diagnostic Imaging Report ? Signed ? Patient Name:ADOLPH,DAVID Martinez ? Date of :1950 ?MR Number:[id number] ? Age:68 ?Sex:M ? Category: CR ?Date [...] questions regarding this report, please contact the [facility] at [phone] ? Dictated by: Alma Sherwood DO ?D/ ?? 2215 ?? Transcribed by: GABE ?D/T: ? E-Signed by: Alma Sherwood DO ?D/ ?? 2327 ? Procedure Note Alma Sherwood MD - 01/09/2019 [facility]: [address] [address] Diagnostic Imaging Report Signed Patient Name:DAVID FARFAN FAccount Number:[id number] Date of :1950 MRNumber:[id number] Age:68 Sex:M Category: CR Date ofExam:12/12/18 Procedure: CR: Chest; Frontal/LAT viewsAccession: [id number] Ordering Physician: Wang Vila MD CC: [...] questions regarding this report, please contact the [facility] at [phone] Dictated by: Alma Sherwood DOD/ 2212 Transcribed by: JOSEPH/T: E-Signed by: Alma Sherwood DOD/ 4530 Wang Vila MD IMG DIAGNOSTIC IMAGI NG ORDERABLES documented in this encounter Visit Diagnoses Not on filedocumented in this encounter Additional Health Concerns Infection Onset Date Last Indicated Resolved Time RSV 01/31/2022 01/31/2022 02/10/2022 22:1 5 EST documented as of this encounter Care Teams Project Planner Relationship Specialty Start Date End Date Katia Stone, MINGO [address] [place] [phone] PCP - General 05/02/17 documented as of this encounter
--- OUTSIDE RECORDS SUMMARY | 2023-12-24 18:44 | XMS_ITS | Encounter Summary ---
Author Organization [facility] Address [address] [place] [address] Care Team Providers Care Senior Clinical Research Associate Name Role Phone Katia Stone PA-C Primary Care Provider +1- [phone] Encounter Details Date Type Department Care Team [...] filedocumented in this encounter Care Teams Senior Clinical Research Associate Relationship Specialty Start Date End Date Katia Stone, BELLAC [address] [place] [phone] PCP - General 05/02/17 documented as of this encounter
--- OUTSIDE RECORDS SUMMARY | 2023-12-24 18:44 | XMS_ITS | Encounter Summary ---
Author Organization [facility] Address [address] [place] [address] Care Team Providers Care Fuel Cell Designer Name Role Phone Katia Stone PA-C Primary Care Provider +1- [phone] Reason for Visit * Reason Onset Date Comments Other 05/29/2017 Encounter Details Date Type Department Care Team (Late st Contact Info) Description 05/29/2017 Telephone [facility] Cardiology - [address] [place], [place] [phone] Daija Mariee, RN Other Social History Tobacco [...] Spoke with nurse Yessica at [facility] She spoke with pt today and he had 2 episodes of sharp pains that lasted seconds at the pacemaker site Yessica- RN would like a call back with plan She states pt has had a 11# weight gain, denies shortness of breath Daughter in law takes care of meds- [phone] Spoke with pt- he had 2 quick [...] in this encounter Care Teams Fuel Cell Designer Relationship Specialty Start Date End Date Katia Stone, MINGO [address] [place] [address] PCP - General 05/02/17 documented as of this encounter
--- OUTSIDE RECORDS SUMMARY | 2023-12-24 18:44 | XMS_ITS | Encounter Summary ---
Author Organization [facility] Address [address] [place] [address] Care Team Providers Care Concrete Tester Name Role Phone Katia Stone PA-C Primary Care Provider +1- [phone] Encounter Details Date Type Department Care Team (Late st Contact Info) Description 01/12/2020 Results Only [facility] [address] [place] [address] Jayesh Olguin MD [address] [place] [address] Social History Tobacco Use Types [...] (01/12/2020 22:30 EST) POC CAPILLARY GLUCOSE - [facility] 102(H) 70 - 100 mg/dL 01/12/2020 22:[address] [facility] 01/12/2020 22:3 0 EST 01/12/2020 22:58 EST Jayesh Olguin MD POINT OF CARE TEST ORDERABLES [facility] [address] [place] [address] * (ABNORMAL) ETHYL ALCOHOL LEVEL - PMC (01/12/2020 22:30 EST) ETHYL ALCOHOL LEVEL - [facility] 237.0(CRIT HIGH) <10 mg/dL 01/12/2020 23:[address] [facility] Comment: Results called and read back to me by: Location: ED Full name: FERMIN FAROOQ Credentials: RN at 2346 on 01/12/20 by TESS. Medical Serum/Plasma Alcohol test reported in mg/dL. Example of unit conversion from mg/dL to percentage: ?80 mg/dL is equivalent to 0.08 % 01/12/2020 22:3 0 EST 01/12/2020 23:03 EST [facility] - 01/12/2020 23:47 EST Sample collected at time of saline lock or IV placement. Jayesh Olguin MD CHEMISTRY & BLOOD G ORDERABLES Performing Organization Address [facility] de Phone Number [facility] [address] [place] [address] * TROPONIN I (01/12/2020 22:30 EST) Pathologist [facility] Troponin I (ng/mL) <0.050 0 - 0.056 ng/ml 01/12/2020 23:[address] [facility] Comment: Interpretation: The [...] 01/12/2020 22:3 0 EST 01/12/2020 23:03 EST [facility] - 01/12/2020 23:47 EST Sample collected at time of saline lock or IV placement. Jayesh Olguin MD CHEMISTRY & BLOOD G ORDERABLES Performing Organization Address [facility] Co de Phone Number [facility] [address] [place] [address] * (ABNORMAL) BASIC METABOLIC PANEL,RANDOM - PMC (01/12/2020 22:30 EST) Pathologist [facility] Sodium 116(CRIT LOW) 136 - 145 mEq/L 01/12/2020 23:33 [facility] Comment: Results called and read back to me by: Location: ED Full name: DBEBIE JOSHUA Credentials: RN at 2332 on 01/12/20 by TESS. Potassium 4.3 3.5 - 5.1 mEq/L 01/12/2020 23:32 [facility] Chloride 83(L) 96 - 107 mEq/L 01/12/2020 23:32 [facility] CO2 Total 24.6 21 - 32 mEq/L 01/12/2020 23:32 [facility] Anion Gap 10.4 mEq/L 01/12/2020 23:32 [facility] BUN 5(L) 7 - 25 mg/dl 01/12/2020 23:32 [facility] Creatinine 0.62(L) 0.70 - 1.30 mg/dl 01/12/2020 23:32 [facility] Estimated GFR >60 >60 01/12/2020 23:33 [facility] Comment: EGFR UNITS: mL/min/1.73 m 2 CKD-EPI Equation used to calculate. Glucose 89 70 - 180 mg/dl 01/12/2020 23:32 [facility] Calcium 8.2(L) 8.5 - 10.1 mg/dl 01/12/2020 23:32 [facility] 01/12/2020 22:3 0 EST 01/12/2020 23:03 [facility] - 01/12/2020 23:47 EST Sample collected at time of saline lock or IV placement. Jayesh Olguin MD CHEMISTRY & BLOOD G ORDERABLES Performing Organization Address City/State/[facility] Co de Phone Number [facility] [address] [place] [address] * (ABNORMAL) HEPATIC FUNCTION PANEL (ALB,ALK PHOS,ALT,AST,DBIL,TOT BOSSMAN,TOT PROT) (01/12/2020 22:30 EST) BILIRUBIN - PMC 0.60 0.00 - 1.00 mg/dl 01/12/2020 23:32 [facility] DIRECT BILIRUBIN - PMC 0.20 0.00 - 0.30 mg/dl 01/12/2020 23:32 [facility] INDIRECT BILIRUBIN - PMC 0.40 0.00 - 0.80 mg/dl 01/12/2020 23:32 [facility] AST 74(H) 15 - 37 U/L 01/12/2020 23:32 [facility] ALT 44 16 - 63 U/L 01/12/2020 23:32 [facility] Alkaline Phosphatase 103 46 - 116 U/L 01/12/2020 23:32 [facility] Total Protein 8.1 6.4 - 8.2 g/dl 01/12/2020 23:32 [facility] Albumin 3.3(L) 3.4 - 5.0 g/dl 01/12/2020 23:32 [facility] GLOBULIN - PMC 4.8 g/dl 01/12/2020 23:32 [facility] ALBUMIN/GLOBULIN RATIO - PMC 0.6 01/12/2020 23:32 [facility] 01/12/2020 22:3 0 EST 01/12/2020 23:03 [facility] - 01/12/2020 23:47 EST Sample collected at time of saline lock or IV placement. Jayesh Olguin MD CHEMISTRY & BLOOD G ORDERABLES [facility] [address] [place] [address] * (ABNORMAL) COMPLETE BLOOD COUNT AND DIFFERENTIAL (01/12/2020 22:30 EST) WBC 5.5 4.0 - 10.5 10 3/uL 01/12/2020 23:19 [facility] RBC 3.69(L) 4.70 - 6.00 10 6/uL 01/12/2020 23:19 [facility] Hemoglobin 12.8(L) 13.5 - 18.0 g/dL 01/12/2020 23:19 [facility] HCT 35.3(L) 42.0 - 52.0 % 01/12/2020 23:19 [facility] MCV 95.7 78 - 100 fL 01/12/2020 23:19 [facility] MCH 34.7(H) 27 - 31 pg 01/12/2020 23:19 [facility] MCHC 36.3(H) 32 - 36 g/dL 01/12/2020 23:19 [facility] RDW-CV - PMC 12.6 11.0 - 14.8 % 01/12/2020 23:19 [facility] PLATELET COUNT - PMC 182 150 - 450 10 3/uL 01/12/2020 23:19 [facility] NEUTROPHILS % (AUTO) - PMC 54.5 42.0 - 75.0 % 01/12/2020 23:19 [facility] LYMPHOCYTES % (AUTO) - PMC 29.0 16.0 - 52.0 % 01/12/2020 23:19 [facility] MONOCYTES % (AUTO) - PMC 12.6(H) 1.0 - 11.0 % 01/12/2020 23:19 [facility] EOSINOPHILS % (AUTO) - PMC 2.4 0.0 - 7.0 % 01/12/2020 23:19 [facility] BASOPHILS % (AUTO) - PMC 1.1 0.0 - 4.0 % 01/12/2020 23:19 [facility] NUCLEATED RBC % (AUTO) - PMC 0.0 <1 % 01/12/2020 23:19 [facility] NEUTROPHILS # (AUTO) - PMC 3.0 1.5 - 6.6 10 3/uL 01/12/2020 23:19 [facility] LYMPHOCYTES # (AUTO) - PMC 1.6 1.0 - 3.5 10 3/uL 01/12/2020 23:19 [facility] MONOCYTES # (AUTO) - PMC 0.7 <1.0 10 3/uL 01/12/2020 23:19 [facility] EOSINOPHILS # (AUTO) - PMC 0.1 <0.7 10 3/uL 01/12/2020 23:19 [facility] BASOPHILS # (AUTO) - PMC 0.1 <0.1 10 3/uL 01/12/2020 23:19 [facility] NUCLEATED RBC # (AUTO) - PMC 0.00 <1 10 3/uL 01/12/2020 23:19 [facility] 01/12/2020 22:3 0 EST 01/12/2020 23:[address] [facility] - 01/12/2020 23:35 EST Sample collected at time of saline lock or IV placement. Jayesh Olguin MD PACKAGES & DNA PROB E ORDERABLES [facility] [address] [place] [address] documented in this encounter Visit Diagnoses Not on filedocumented in this encounter Care Teams Concrete Tester Relationship Specialty Start Date End Date Katia Stone, PABijalC [address] [place] [phone] PCP - General 05/02/17 documented as of this encounter
--- OUTSIDE RECORDS SUMMARY | 2023-12-24 18:44 | XMS_ITS | Encounter Summary ---
Author Organization [facility] Address [address] [place] [address] Care Team Providers Care Accountant Machine Processing Name Role Phone Katia Stone PA-C Primary Care Provider +1- [phone] Reason for Visit * Reason Comments Shortness of Breath Encounter Details Date Type Department Care Team (Late st Contact Info) Description 06/11/2017 13:40 EDT Office Visit [facility] Cardiology [address] [id number] Tony Rosenberg MD [address] [place] [address] [place] [phone] SOB (shortness of breath) (Primary Dx) [...] 0000 EDT [facility] [place] PROGRESS / FOLLOWUP NOTE - 06/11/2017 PROBLEM LIST: 1. Third-degree heart block. a. Status post dual chamber pacemaker insertion. b. Pericardial effusion. c. Pacemaker generator lead repositioning and pericardiocentesis. 2. Large pleural effusions. 3. Hypertension. 4. Hyponatremia. SUBJECTIVE: Mr Mera was seen at the [facility] [...] substantial bilateral pleural effusions. Echocardiogram done in [facility] shows preserved LV systolic function. No [...] - Tony Rosenberg MD ln Dictation ID: [id number] cc: Shailesh Torres MD, [address] [address] Katia Mccallum PA-C, [place] [address] [address] [place] [address] documented in this encounter Plan of Treatment Not on file documented as of this encounter Visit Diagnoses Diagnosis SOB (shortness of breath)- Primary Shortness of breath documented in this encounter Care Teams Accountant Machine Processing Relationship Specialty Start Date End Date Katia Stone PA-C [facility] [address] [place] [phone] PCP - General 05/02/17 documented as of this encounter
--- OUTSIDE RECORDS SUMMARY | 2023-12-24 18:44 | XMS_ITS | Encounter Summary ---
Author Organization [facility] Address [address] [place] [address] Care Team Providers Care Net Developer Name Role Phone Katia Stone PA-C Primary Care Provider +1- [phone] Encounter Details Date Type Department Care Team (Late st Contact Info) Description 06/12/2018 Historical Results Only [facility] [address] [place], [place] [address] Katia Stone, MINGO [address] [place] [address] Social History Tobacco Use Types [...] 93 46 - 116 06/12/2018 17:52 EDT [facility] Total Protein 7.1 6.4 - 8.2 06/12/2018 17:52 T [facility] Albumin 3.4 3.4 - 5.0 06/12/2018 17:52 T [facility] GLOBULIN - PMC 3.7 06/12/2018 17:52 T [facility] ALBUMIN/GLOBULIN RATIO - PMC 0.9 06/12/2018 17:52 T [facility] 06/12/2018 16:4 6 EDT 06/12/2018 16:47 EDT Katia Stone PA-C CHEMISTRY & BLOOD GAS ORDERABLES [facility] documented in this encounter Visit Diagnoses Not on filedocumented in this encounter Care Teams Net Developer Relationship Specialty Start Date End Date Katia Stone PA-C [address] [place] [address] PCP - General 05/02/17 documented as of this encounter
--- OUTSIDE RECORDS SUMMARY | 2023-12-24 18:44 | XMS_ITS | Encounter Summary ---
Author Organization [facility] Address [address] [place] [address] Care Team Providers Care Work Counselor Name Role Phone Katia Stone PA-C Primary Care Provider +1- [phone] Reason for Visit * Reason Onset Date Comments Other 11/03/2019 pacemaker proble m Encounter Details Date Type Department Care Team (Late st Contact Info) Description 11/03/2019 Telephone [facility] Cardiology - [address] [place] [address] Tony Rosenberg MD [employer] [facility] [address] [place] [address] Other (pacemaker problem) Social History [...] Dr. Rosenberg. Needs to be done at [facility] when we have the lead extraction program up and running. Will keep you posted. JW Nila expressed understanding, she mentioned patient is anxious and would like to have more information regarding next steps. * Telephone Encounter - Marilyn Escoto - 11/03/2019 1017 EDT Spoke with Nila at [facility], she is wondering about update in regards to plan for lead revision. Nila asks for an update you can reach her at [phone] extension [phone] Please advise * Telephone Encounter - Jada Ochoa - 11/03/2019 1015 EDT Patient's pacemaker has been shocking him. documented in this encounter Plan of Treatment Not on file documented as of this encounter Visit Diagnoses Not on filedocumented in this encounter Care Teams Work Counselor Relationship Specialty Start Date End Date Katia Stone PA-C [address] [place] [address] PCP - General 05/02/17 documented as of this encounter
--- OUTSIDE RECORDS SUMMARY | 2023-12-24 18:44 | XMS_ITS | Encounter Summary ---
Author Organization [facility] Address [address] [place] [address] Care Team Providers Care Size Tester Name Role Phone Katia Stone PA-C Primary Care Provider +1- [phone] Reason for Visit * Reason Onset Date Comments Medication Questions 07/16/2017 Encounter Details Date Type Department Care Team (Late st Contact Info) Description 07/16/2017 Telephone [facility] Cardiology - [place] [address] Caitie Atwood, TAIWO [address] [facility] 1 [place] [address] Medication Questions Social History Tobacco [...] on filedocumented in this encounter Care Teams Size Tester Relationship Specialty Start Date End Date Katia Stone, MINGO [address] [place] [phone] PCP - General 05/02/17 documented as of this encounter
--- OUTSIDE RECORDS SUMMARY | 2023-12-24 18:44 | XMS_ITS | Encounter Summary ---
Author Organization [facility] Address [address] [place] [address] Care Team Providers Care Contract Administration Manager Name Role Phone Katia Stone PA-C Primary Care Provider +1- [phone] Encounter Details Date Type Department Care Team (Late st Contact Info) Description 08/13/2018 Historical Results Only [facility] [address] [place], [place] [address] Katia Stone, MINGO [address] [place] [address] Social History Tobacco Use Types [...] Sodium 125(L) 136 - 145 08/13/2018 12:52 [facility] Potassium 4.9 3.5 - 5.1 08/13/2018 12:52 [facility] Chloride 91(L) 96 - 107 08/13/2018 12:52 [facility] CO2 Total 25.4 21 - 32 08/13/2018 12:52 [facility] Anion Gap 8.6 08/13/2018 12:52 [facility] BUN 7 7 - 25 08/13/2018 12:52 [facility] Creatinine 0.59(L) 0.7 - 1.30 08/13/2018 12:52 [facility] Estimated GFR >60 >60 08/13/2018 12:53 [facility] Comment: EGFR UNITS: mL/min/1.73 m 2 CKD-EPI Equation used to calculate. Glucose 88 FASTIN -99 08/13/2018 12:52 [facility] Calcium 8.1(L) 8.5 - 10.5 08/13/2018 12:52 [facility] CALCIUM,CORRECTE D - PMC 8.7 8.5 - 10.5 08/13/2018 12:52 [facility] BILIRUBIN - PMC 0.20 0.00 - 1.00 08/13/2018 12:52 [facility] AST 40(H) 15 - 37 08/13/2018 12:52 [facility] ALT 45 12 - 78 08/13/2018 12:52 [facility] Alkaline Phosphatase 112 46 - 116 08/13/2018 12:52 EDT [facility] Total Protein 7.1 6.4 - 8.2 08/13/2018 12:52 [facility] Albumin 3.2(L) 3.4 - 5.0 08/13/2018 12:52 T [facility] GLOBULIN - PMC 3.9 08/13/2018 12:52 T [facility] ALBUMIN/GLOBULIN RATIO - PMC 0.8 08/13/2018 12:52 T [facility] 08/13/2018 11:2 8 EDT 08/13/2018 11:37 EDT Katia Stone PA-C CHEMISTRY & BLOOD GAS ORDERABLES [facility] documented in this encounter Visit Diagnoses Not on filedocumented in this encounter Care Teams Contract Administration Manager Relationship Specialty Start Date End Date Katia Stone PA-C [address] [place] [phone] PCP - General 05/02/17 documented as of this encounter
--- OUTSIDE RECORDS SUMMARY | 2023-12-24 18:44 | XMS_ITS | Encounter Summary ---
Author Organization [facility] Address [address] [place] [address] Care Team Providers Care Transmitter Supervisor Name Role Phone Katia Stone PA-C Primary Care Provider +1- [phone] Encounter Details Date Type Department Care Team (Late st Contact Info) Description 12/12/2018 Results Only [facility] [address] [place] [address] [place] [address] Wang Vila MD [address] [facility], [facility] [address] [place] [address] Social History Tobacco Use Types [...] 4.0 - 10.5 10 3/uL 12/12/2018 22:21 [facility] RBC 3.85(L) 4.70 - 6.00 10 6/uL 12/12/2018 22:21 [facility] Hemoglobin 13.1(L) 13.5 - 18.0 g/dL 12/12/2018 22:21 [facility] HCT 36.1(L) 42.0 - 52.0 % 12/12/2018 22:21 [facility] MCV 93.8 78 - 100 fL 12/12/2018 22:21 [facility] MCH 34.0(H) 27 - 31 pg 12/12/2018 22:21 [facility] MCHC 36.3(H) 32 - 36 g/dL 12/12/2018 22:21 [facility] RDW-CV - PMC 11.9 11.5 - 14.0 % 12/12/2018 22:21 [facility] PLATELET COUNT - PMC 208 150 - 450 10 3/uL 12/12/2018 22:21 [facility] NEUTROPHILS % (AUTO) - PMC 52.5 42.0 - 75.0 % 12/12/2018 22:21 [facility] LYMPHOCYTES % (AUTO) - PMC 32.3 16.0 - 52.0 % 12/12/2018 22:21 [facility] MONOCYTES % (AUTO) - PMC 7.8 1.0 - 11.0 % 12/12/2018 22:21 [facility] EOSINOPHILS % (AUTO) - PMC 5.5 0.0 - 7.0 % 12/12/2018 22:21 [facility] BASOPHILS % (AUTO) - PMC 1.4 0.0 - 4.0 % 12/12/2018 22:21 [facility] NUCLEATED RBC % (AUTO) - PMC 0.0 <1 % 12/12/2018 22:21 [facility] NEUTROPHILS # (AUTO) - PMC 5.3 1.5 - 6.6 10 3/uL 12/12/2018 22:21 [facility] LYMPHOCYTES # (AUTO) - PMC 3.3 1.0 - 3.5 10 3/uL 12/12/2018 22:21 [facility] MONOCYTES # (AUTO) - PMC 0.8 <1.0 10 3/uL 12/12/2018 22:21 [facility] EOSINOPHILS # (AUTO) - PMC 0.6 <0.7 10 3/uL 12/12/2018 22:21 [facility] BASOPHILS # (AUTO) - PMC 0.1 <0.1 10 3/uL 12/12/2018 22:21 [facility] NUCLEATED RBC # (AUTO) - PMC 0.00 <1 10 3/uL 12/12/2018 22:21 [facility] 12/12/2018 22:1 5 EDT 12/12/2018 22:19 EDT Wang Vila MD PACKAGES & DNA PROBE ORDERABLES [facility] documented in this encounter Visit Diagnoses Not on filedocumented in this encounter Care Teams Transmitter Supervisor Relationship Specialty Start Date End Date Katia Stone PA-C [address] [place] [phone] PCP - General 05/02/17 documented as of this encounter
--- OUTSIDE RECORDS SUMMARY | 2023-12-24 18:44 | XMS_ITS | Encounter Summary ---
Author Organization [facility] Address [address] [place] [address] Care Team Providers Care Wagon Driver Salesperson Name Role Phone Katia Stone PA-C Primary Care Provider +1- [phone] Reason for Visit * Reason Onset Date Comments Coordination Of Care 11/30/2019 Follow-up 12/02/2019 Follow-up 12/22/2019 Pacemaker Problem 12/23/2019 Encounter Details Date Type Department Care Team (Late st Contact Info) Description 11/30/2019 Telephone [facility] Cardiology - [address] [place] [address] Tony Rosenberg MD [address] [place], [place] [address] [place] [address] Coordination Of Care; Follow-up; Follow-up; [...] Telephone Encounter - Tony Tim - 11/30/2019 4231 EDT Angela is calling to speak to [...] on filedocumented in this encounter Care Teams Wagon Driver Salesperson Relationship Specialty Start Date End Date Katia Stone, PABijalC [address] [place] [phone] PCP - General 05/02/17 documented as of this encounter
--- OUTSIDE RECORDS SUMMARY | 2023-12-24 18:44 | XMS_ITS | Encounter Summary ---
Author Organization [facility] Address [address] [place] [address] Care Team Providers Care Conference Services Coordinator Name Role Phone Katia Stone PA-C Primary Care Provider +1- [phone] Reason for Visit * Reason Onset Date Comments Labs Only 07/22/2017 from 07/16 Encounter Details Date Type Department Care Team (Late st Contact Info) Description 07/22/2017 Telephone [facility] Cardiology - [facility] [address] [facility] [place] [address] Tony Rosenberg MD [address] [place] [address] [address] [place] [address] Labs Only (from 07/16) Social [...] call office back with call back number [phone]. * Telephone Encounter - Belinda Falk RN - 07/23/2017 1054 EDT Call received from Yessica with questions on when patient's follow-up appointment was with Dr. Rosenberg, where the labwork needed to be sent to, and in put from cardiology. Provided Yessica the provider access line for PCP to discuss patient's care with Dr. Rosenberg. Also discussed with Yessica since patient is seen in [facility] records are not accessible to our office (labs, and outside office notes). Yessica to review with PCP and formulate coordination of care with [facility]. * Telephone Encounter - Belinda Falk RN - 07/22/2017 1500 EDT Call placed to Yessica regarding Tim Mera unable to reach patient by phone. Message left on voicemail to call office back with call back number [phone]. * Telephone Encounter - Morena Lux - 07/22/2017 1456 EDT Yessica from [facility] Regarding patients labs from 07/16 Has anyone addressed them Please call to advise documented in this encounter Plan of Treatment Not on file documented as of this encounter Visit Diagnoses Not on filedocumented in this encounter Care Teams Conference Services Coordinator Relationship Specialty Start Date End Date Katia Stone, MINGO [address] [place] [id number] PCP - General 05/02/17 documented as of this encounter
--- OUTSIDE RECORDS SUMMARY | 2023-12-24 18:44 | XMS_ITS | Encounter Summary ---
Author Organization [facility] Address [address] [place] [address] Care Team Providers Care Music Librarian Name Role Phone Katia Stone PA-C Primary Care Provider +1- [phone] Encounter Details Date Type Department Care Team (Late st Contact Info) Description 06/25/2018 Historical Results Only [facility] [address] [place] [address] [place], [place] [address] Leonard Crespo MD [address] [place] [address],[address] [place], [place] [id number] [phone] Social History Tobacco Use Types Packs/Day Years [...] IGE - PMC <0.35 06/29/2018 15:54 EDT [facility] Comment: Class 0 (Negative <0.35) Test Performed by: [place] [address] 06/25/2018 18:5 0 EDT 06/25/2018 18:56 EDT Leonard Crespo MD CHEMISTRY & BLOOD GA S ORDERABLES [facility] * ENGLISH MAXWELL IGE - PMC (06/25/2018 18:50 EDT) ENGLISH MAXWELL IGE <0.35 06/29/2018 15:54 EDT [facility] Comment: Class 0 (Negative <0.35) Test Performed by: [address] [id number] 06/25/2018 18:5 0 EDT 06/25/2018 18:56 EDT Leonard Crespo MD CHEMISTRY & BLOOD GA S ORDERABLES [facility] * HOUSE DUST MITES/D.P., IGE - PMC (06/25/2018 18:50 EDT) HOUSE DUST MITES/D.P., IGE - PMC <0.35 06/29/2018 15:54 EDT [facility] Comment: Class 0 (Negative <0.35) Test Performed by: [address] [id number] 06/25/2018 18:5 0 EDT 06/25/2018 18:56 EDT Leonard Crespo MD CHEMISTRY & BLOOD GA S ORDERABLES Performing Organization Address City/[facility]/ZIP Co de Phone Number [facility] * [facility],S - PMC (06/25/2018 18:50 EDT) ALTERNARIA TENUIS, IGE - PMC <0.35 06/29/2018 15:54 [facility] Comment:Class 0 (Negative <0 .35) CLAD - PMC <0.35 06/29/2018 15:54 [facility] Comment:Class 0 (Negative <0 .35) HOUSE DUST MITE/D.F., IGE <0.35 06/29/2018 15:54 EDT [facility] Comment: Class 0 (Negative <0.35) Test Performed by: [facility] - [address] [address] CAT - PMC <0.35 06/29/2018 15:54 [facility] Comment:Class 0 (Negative <0 .35) DOG DANDER, IGE - PMC <0.35 06/29/2018 15:54 [facility] Comment:Class 0 (Negative <0 .35) YAYA GRASS IGE - PMC <0.35 06/29/2018 15:54 [facility] Comment:Class 0 (Negative <0 .35) LAMBS QUARTER, IGE - PMC <0.35 06/29/2018 15:54 [facility] Comment:Class 0 (Negative <0 .35) OAK - PMC <0.35 06/29/2018 15:54 [facility] Comment:Class 0 (Negative <0 .35) RAGWEED, SHORT, IGE - PMC <0.35 06/29/2018 15:54 [facility] Comment:Class 0 (Negative <0 .35) CONNER GRASS, IGE - PMC <0.35 06/29/2018 15:54 [facility] Comment:Class 0 (Negative <0 .35) 06/25/2018 18:5 0 EDT 06/25/2018 18:56 EDT Leonard Crespo MD CHEMISTRY & BLOOD GA S ORDERABLES [facility] * (ABNORMAL) HEPATIC & CMP COMBO,FASTING - PMC (06/25/2018 18:50 EDT) Sodium 130(L) 136 - 145 06/25/2018 19:38 [facility] Potassium 4.3 3.5 - 5.1 06/25/2018 19:38 [facility] Chloride 93(L) 96 - 107 06/25/2018 19:38 [facility] CO2 Total 26.4 21 - 32 06/25/2018 19:38 [facility] Anion Gap 10.6 06/25/2018 19:38 [facility] BUN 15 7 - 25 06/25/2018 19:38 [facility] Creatinine 0.86 0.7 - 1.30 06/25/2018 19:38 [facility] Estimated GFR >60 >60 06/25/2018 19:38 [facility] Comment: EGFR UNITS: mL/min/1.73 m 2 CKD-EPI Equation used to calculate. Glucose 89 FASTIN -99 06/25/2018 19:38 [facility] Calcium 8.6 8.5 - 10.5 06/25/2018 19:38 [facility] CALCIUM,CORRECTE D - PMC 9.0 8.5 - 10.5 06/25/2018 19:38 [facility] BILIRUBIN - PMC 0.30 0.00 - 1.00 06/25/2018 19:38 [facility] AST 55(H) 15 - 37 06/25/2018 19:38 [facility] ALT 65 12 - 78 06/25/2018 19:38 [facility] Alkaline Phosphatase 115 46 - 116 06/25/2018 19:38 [facility] Total Protein 7.5 6.4 - 8.2 06/25/2018 19:38 [facility] Albumin 3.5 3.4 - 5.0 06/25/2018 19:38 [facility] GLOBULIN - PMC 4.0 06/25/2018 19:38 [facility] ALBUMIN/GLOBULIN RATIO - PMC 0.8 06/25/2018 19:38 [facility] 06/25/2018 18:5 0 EDT 06/25/2018 18:56 EDT Leonard Crespo MD CHEMISTRY & BLOOD GA S ORDERABLES [facility] documented in this encounter Visit Diagnoses Not on filedocumented in this encounter Care Teams Music Librarian Relationship Specialty Start Date End Date Katia Stone, PABijalC [address] [place] [phone] PCP - General 05/02/17 documented as of this encounter
--- OUTSIDE RECORDS SUMMARY | 2023-12-24 18:44 | XMS_ITS | Encounter Summary ---
Author Organization [facility] Address [address] [place] [address] Care Team Providers Care Threading Machine Feeder Automatic Name Role Phone Katia Stone PA-C Primary Care Provider +1- [phone] Reason for Visit * Reason Comments Arrhythmia Encounter Details Date Type Department Care Team (Late st Contact Info) Description 10/13/2019 16:00 EDT Office Visit [facility] Cardiology [address] [address] Tony Rosenberg MD [address] [place] [address] Heart block AV third degree (HCC-CMS) [...] file Gets together: Not on file Attends advent service: Not on file Active member of [...] complete documented in this encounter Care Teams Threading Machine Feeder Automatic Relationship Specialty Start Date End Date Katia Stone, PABijalC [address] [place] [phone] PCP - General 05/02/17 documented as of this encounter
--- OUTSIDE RECORDS SUMMARY | 2023-12-24 18:44 | XMS_ITS | Encounter Summary ---
Author Organization [facility] Address [address] [place] [address] Care Team Providers Care Exerciser Name Role Phone Katia Stone PA-C Primary Care Provider +1- [phone] Encounter Details Date Type Department Care Team (Late st Contact Info) Description 08/20/2018 Historical Results Only [facility] [address] [place], [place] [address] Katia Stnoe, MINGO [address] [place] [address] Social History Tobacco Use Types [...] 46 - 116 08/20/2018 12:38 EDT [facility] Total [...] on filedocumented in this encounter Care Teams Exerciser Relationship Specialty Start Date End Date Katia Stone PA-C [address] [place] [phone] PCP - General 05/02/17 documented as of this encounter
--- OUTSIDE RECORDS SUMMARY | 2023-12-24 18:44 | XMS_ITS | Encounter Summary ---
Author Organization [facility] Address [address] [place] [address] Care Team Providers Care Flyer Builder Name Role Phone Katia Stone PA-C Primary Care Provider +1- [phone] Reason for Visit * Reason Onset Date Comments Other 06/18/2017 discharged on 06.03.15 Follow-up 07/16/2017 Encounter Details Date Type Department Care Team (Late st Contact Info) Description 06/18/[address] [facility] Cardiology - [address] [place] [address] Pierre Rubio MD [address] [facility] [address] [place] [address] Other (discharged on 06.03.15); Follow-up [...] Felicitas Pearce RN - 07/16/2017 1310 EDT Riely WINSTON at [facility] called. States : Wt [...] taper and [facility] [place], stated colchicine has run out- not sure if pt needs a refill or not. States he called pt's PCP in [place] and that MD wants to know if RN should draw labs? Please call back JOAN as he is with the pt now. Routing to Giovanni Sam NP and Belinda Eddy RN and will also go speak with one of them as well. Let Riley WINSTON know that Belinda Eddy would call back. * Telephone Encounter - Isidra Telles - 07/16/2017 1257 EDT [facility], Weight at 224, has been fluctuating Limited edema Has been winded Less endurance Cough has green secretions Some slight harsh breathing sounds Questions: Blood Work? Prednisone Taper seems to be off, will need a refill if continuing in the same manner * Telephone Encounter - Belinda Falk RN - 06/18/2017 1630 EDT Spoke with Riley horta [facility] mentioned call placed to patient to confirm medication taking. Per patient he was taking Torsemide 40 mg daily and was not taking lasix. Per Bill this was differnet then what was discussed. Referred home Health to discuss care with Shailesh Torres MD in [place] and Katia Mccallum PA-C, [facility]. * Telephone Encounter - Belinda [...] 06.16.17. He has been feeling ok. [facility] health is calling to discuss his [...] on filedocumented in this encounter Care Teams Flyer Builder Relationship Specialty Start Date End Date Katia Stone PA-C [address] [place] [phone] PCP - General 05/02/17 documented as of this encounter
--- OUTSIDE RECORDS SUMMARY | 2023-12-24 18:44 | XMS_ITS | Encounter Summary ---
Author Organization Health system Address [address] [place] [address] Care Team Providers Care Supervisor Gear Repair Name Role Phone Katia Stone PA-C Primary Care Provider +1- [phone] Reason for Visit * Reason Onset Date Comments Other 08/15/2017 Returning Call 08/15/2017 To Belinda Encounter Details Date Type Department Care Team (Late st Contact Info) Description 08/15/2017 Telephone [facility] Cardiology - [address] [place], [place] [id number] Belinda Falk, TISH Other; Returning Call (To [...] - 08/15/2017 1243 EDT Spoke with Yessica (managed care director at PCP) in regards to patient Tim [...] Yessica patient needs to follow-up with primary motor vehicle escort driver in [place] Dr. Torres. Per Yessica patient has not seen Dr. Torres since before his first admission to [facility] on 04/30/17. Mentioned to Yessica, patient needs to be following up with PCP and primary motor vehicle escort driver. Yessica expressed understanding and will reach out to Dr. Torres's office at [facility]. Discharge summaries and last OV note faxed [...] by phone. Left detailed message, patient is [place] patient and no showed for visit with Dr. Rosenberg on 08/06. Instructed Yessica to reach out to [facility] where his primary motor vehicle escort driver is established on voice mail. documented in this encounter Plan of Treatment Not on file documented as of this encounter Visit Diagnoses Not on filedocumented in this encounter Care Teams Supervisor Gear Repair Relationship Specialty Start Date End Date Katia Stone, MINGO [address] [place] [phone] PCP - General 05/02/17 documented as of this encounter
--- OUTSIDE RECORDS SUMMARY | 2023-12-24 18:44 | XMS_ITS | Encounter Summary ---
Author Organization [facility] Address [address] [place] [address] Care Team Providers Care Drywall Contractor Name Role Phone Katia Stone PA-C Primary Care Provider [phone] Reason for Referral * Consult (Routine) - New Request Specialty Diagnoses / Procedures Referred By Contgaye t Referred To Contact Diagnoses Heart failure, unspecified HF chronicity, unspecified heart failure type (HCC-CMS) Subacute effusive constrictive pericarditis Michael Pratt MD [facility] [place] [address] Referral ID Status Reason Start Date Expiration Date Visits Requested Visits Authorized [id number] New Request Specialty Services Required 06/16/2017 1 1 Question Answer Reason for Request: f/u constrictive pericarditis Expected Discharge Date (Inpatient Only): 06/16/2017 [facility] Comments With Dr. Torres * Follow Up (3 - 10 Business Days) - Receiving Office to Obtain Authorization Specialty Diagnoses / Procedures Referred By Contac t Referred To Contact Diagnoses Heart failure, unspecified HF chronicity, unspecified heart failure type (HCC-CMS) Subacute effusive constrictive pericarditis Bg Atwood MD [address] [place] [address] Referral ID Status Reason Start Date Expiration Date Visits Requested Visits Authorized [id number] Receiving Office to Obtain Authorization Continuity of Care 8 1 1 Question Answer Reason for Request: f/u hospitalization for constrictive pericarditis Expected Discharge Date (Inpatient Only): 06/16/2017 * Referral (Routine/Next Available) - New Request Specialty Diagnoses / Procedures Referred By Jael t Referred To Contact Diagnoses Heart failure, unspecified HF chronicity, unspecified heart failure type ([facility]-CMS) Subacute effusive constrictive pericarditis Bg Atwood MD [address] [place] [id number] [address] Referral ID Status Reason Start Date Expiration Date Visits Requested Visits Authorized [id number] New Request Specialty Services Required 06/16/2017 1 1 Question Answer I certify that this patient is under my care and that I, or another Medicare allowed practitioner (DO CHAMP, PACHECO) working with me, had a xrfh-pu-fjgq encounter with this patient on this date: 06/16/2017 I further certify that the zuir-fl-tgst encounter was in whole or in part [...] ambulation Nursing skilled care requested: Nursing asessment [facility] assessment needed related to this encounter: Response to new or changed medication Expected Discharge Date (Inpatient Only): 06/16/2017 Encounter Details Date Type Department Care Team (Late st Contact Info) Description 06/12/2017 17:51 EDT - 06/16/2017 16:57 EDT Hospital Encounter [facility] Cardiac/Telemetry Unit [address] [place] [address] Seng Rand MD PhD [address] [facility] [address] [place] [address] Bg Atwood MD [address] [place] [phone] Tony Rosenberg MD [address] [address] Heart failure, unspecified HF chronicity, [...] HF chronicity, unspecified heart failure type ([facility]-CMS) 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 Heart failure ([facility]) 06/12/2017 Resolved Hospital Problems Diagnosis [...] orthopnea on a follow up exam at [facility]. He was transferred to [facility] due to concern for subacute [...] Component Value Units Date/Time Bacterial Culture/Smear, Fluid [[id number]] Collected: 06/13/17 0826 Lab Status: Preliminary result Specimen: FOSMIC from Pleural Fluid Updated: 06/15/17 0729 Gram Smear Result Polys present No bacteria seen Result No growth Bacterial Culture, Blood [[id number]] Collected: 06/12/172246 Lab Status: In process Specimen: Blood Updated: 06/12/172320 Bacterial Culture, Blood [[id number]] Collected: 06/12/172239 Lab Status: In process Specimen: [...] 05/01/2017 Discharge Follow Up Appointments Scheduled with [facility] Upcoming Appointments Aug 06, 2017 15:20 EDT Follow Up Return with Tony Rosenberg MD [facility] Cardiology [facility] (--) [address] [place] [id number] Appointments Outside of [facility] We Will Schedule Follow-up appointments [...] another Medicare authorized non-physician practitioner (PA or PHLEBOTOMY SUPERVISOR) or resident working with me, had a ubcb-bl-kpkn encounter with this patient on this date: 06/16/2017 I further certify that the zwor-tf-xlsa encounter was in whole or in part related to the reason thepatient needs home health care.: Yes The patient has had a onmv-vs-azyr visit by me or one of my [...] and ambulation Skilled Care Requested: Nursing asessment [facility] assessment needed related to this encounter: Response to new or changed medication Expected Discharge Date (Inpatient Only): 06/16/2017 Authorizing Provider: Bg Atwood MD Additional Information: Please follow up at [facility] with Dr. Tony Rosenberg on August 06, 2017 at 3:20 pm. If you have questions please call [phone]. Please follow up with your primary care physician, Katia Mccallum, on June 17, 2017 at 10:45 am. Ifyou have any questions please call [phone]. Studies We Will Schedule Appointments We Recommend but have not been Scheduled None Michael Pratt MD 06/16/2017 15:18 I evaluated the patient and agree with the discharge summary as outlined above by Dr. Pratt. Mr. Farfan was feeling much better today. 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 BG ATWOOD MD Attending Housekeeping Laundry Worker [facility] documented in this encounter Discharge Instructions * Appointments* Desi Thomas - 06/16/2017 12:01 EDT Please follow up at [facility] with Dr. Tony Rosenberg on August 06, 2017 at 3:20 pm. If you have questions please call [phone]. Please follow up with your primary care physician, Katia Mccallum, on June 17, 2017 at 10:45 am. Ifyou have any questions please call [phone]. * Discharge Instr - Other Orders* Melida [...] Care Everywhere. * HEART FAILURE: AVOIDING TRIGGERS (MARSHALLESE) documented in this encounter Medications at Time [...] Services. D/C Summary was faxed to his Cloth Hand at Dr. Mccallum's office. Desi Villatoro RN #[id number] * Tej Casanova MD - 06/15/2017 0816 [...] daily with taper in near future - EMERGENCY VEHICLE OPERATIONS INSTRUCTOR torsemide 40mg daily Hypokalemia/Hypomagnesemia -replete as needed [...] attestation - Bg Atwood MD - 06/15/2017 8287 EDT I have seen and evaluated the patient. I agree with the assessment and plan as outlined above by Dr. Casanova. He seems to be doing better on the steroids. I encouraged ambulation. We will likely cancel the right heart catheterization for tomorrow. BG ATWOOD MD Attending Housekeeping Laundry Worker [facility] * Michael Pratt MD - [...] daily with taper in near future - EMERGENCY VEHICLE OPERATIONS INSTRUCTOR torsemide 40mg daily Pleural Effusions: Associated with [...] not lie flat. 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 O/ wt-100.7 kg Prior wt-~108 kg(05/24/17) Ht-180.3 [...] to d/c. Magalis Berger RD, CD X/cover #[id number] * Ameena Teixeira - 06/13/2017 1154 EDT Initial Case Management/Social Work Assessment and Discharge Plan/Readmission Risk Assessment REASON FOR ADMISSION: Heart failure ([facility]) Patient understands reason for admission: Yes PATIENT CONTACT INFO VERIFIED: Yes PATIENT ADDRESS VERIFIED: Yes (David is staying with his son Mo temporarily in [place]. He did not know the address) LIVING [...] his sons have been driving him) CULTURAL, CATHOLIC and/or LANGUAGE factors affecting health care/discharge [...] device: None Community Services: Home health, [facility], [facility]-none of one time a week Will [...] AID - [address] - [place], [place] - [address] [facility] [address] [facility] ([facility] - [place], [place] - [address] [address] Home Health: [facility] Other: Other (enter in comments) (he has a rn managed care through [facility]) POST HOSPITAL TRANSITION PLAN: Likely Dc to his son's house with continuation of HH RN services. Hereports that he has only been drinking 1-2 beers/day. He denied any concern over his ETOH use. AMEENA TEIXEIRA 06/13/2017 11:59 For Ivelisse Rueda * Desi Villatoro, RN - 06/13/2017 0908 EDT 06/13: Received a call from Y[facility]ica [facility]. She is the patient's Cloth Hand. I've faxed patient's H&P to her and will keep her up to date on patient's progress and projected d/c. Yessica Card, Cloth Hand P: [phone] F: [phone] Desi Villatoro RN [facility] #[id number] * Renetta Martini, TISH - 06/13/2017 5341 EDT Pt received from [facility] to angio [...] in this encounter H&P Notes * Denilson Sahnnon MD - 06/12/2017 2512 EDT Cardiology Admitting H&P Admit Date: 06/12/2017 [...] follow up performed by Dr. Rosenberg in [place] (has now completed 14 days of ibuprofen). After seeing Dr. Rosenberg yesterday and having an echo performed, he was noted to have worsening dyspnea, orthopnea, and increasing pleural effusions. He denies chest pain, diaphoresis, arm/jaw pain, wheezing, nausea/vomiting, change in bowels, or change in urination. He notes an ongoing cough with worsening abdominal pain from coughing so frequently. He was transferred to [facility] for consideration of thoracentesis and medical [...] tomorrow (either bedside or IR guided) - EMERGENCY VEHICLE OPERATIONS INSTRUCTOR torsemide 40mg daily - NPO after midnight [...] - team attempted to obtain echo from [facility] however unable to do so until AM - if no other etiology found consider switching to colchicine + prednisone - blood cultures Denilson Shannon MD Funeral Car Driver Pager [phone] 06/12/2017 21:56 Associated attestation - Bg Atwood [...] thoracentesis as well. BG ATWOOD MD Attending Housekeeping Laundry Worker [facility] documented in this encounter Procedure Notes * Randy Ireland PA-C - 06/13/2017 0839 EDT IR Procedure Note Procedure: Requested U/S guided bilateral thoracentesis Date Performed: 06/13/2017 Radiologist/Yard Hand(s):MD Andrea /MINGO Ireland Sedation/Anesthesia: local Time Out: [...] with patient.Informed pt that he will have [facility] on Friday. R: Pt verbalized understanding of his plan of care. * Plan of Care - Mila Mcallister RN - 06/14/2017 7688 EDT Problem: Daily Care Plan Goals Goal: [...] to room/call garza system. Admission database completed. desk monitor applied. Plan of care reviewed to [...] EDT) 06/29/2017 16:0 1 EDT Scan 2 Steward/Stewardess Chief Cargo Vessel PROCEDURE/MINOR VELMA GICAL ORDERABLES * IMPLANT RECORD - SCANNED (06/19/2017 14:15 EDT) 06/19/2017 14:1 5 EDT Scan 2 Steward/Stewardess Chief Cargo Vessel PROCEDURE/MINOR VELMA GICAL ORDERABLES * ECG REPORT - SCANNED (06/19/2017 14:15 EDT) 06/19/2017 14:1 5 EDT Scan 2 Steward/Stewardess Chief Cargo Vessel PROCEDURE/MINOR VELMA GICAL ORDERABLES * MAGNESIUM (06/16/2017 5:39 EDT) Magnesium 1.9 1.7 - 2.8 mg/dl 06/16/2017 6:48 EDT [facility] Blood specimen (specimen) BLOOD SPECIMEN / Unknown 06/16/2017 5:39 EDT 06/16/2017 6:15 EDT Michael Pratt MD CHEMISTRY & BLOOD GA S ORDERABLES [facility] [address] [place] [address] * (ABNORMAL) ELECTROLYTES (06/16/2017 5:39 EDT) Sodium 133(L) 136 - 145 mEq/L 06/16/2017 6:48 EDT [facility] Potassium 3.7 3.5 - 5.0 mEq/L 06/16/2017 6:48 T [facility] Chloride 90(L) 96 - 110 mEq/L 06/16/2017 6:48 T [facility] CO2 33(H) 22 - 32 mEq/L 06/16/2017 6:48 T [facility] Blood specimen (specimen) BLOOD SPECIMEN / Unknown 06/16/2017 5:39 EDT 06/16/2017 6:15 EDT Michael Pratt MD CHEMISTRY & BLOOD GA S ORDERABLES [facility] [address] [place] [address] * (ABNORMAL) HEMAGRAM (06/16/2017 5:39 EDT) WBC 10.81(H) 4.0 - 10.4 K/cmm 06/16/2017 6:28 [facility] RBC 3.83(L) 4.36 - 5.78 M/cmm 06/16/2017 6:28 [facility] Hemoglobin 12.4(L) 13.8 - 17.3 gm/dl 06/16/2017 6:28 [facility] HCT 35.6(L) 39.5 - 50.2 % 06/16/2017 6:28 [facility] MCV 93 81 - 95 fl 06/16/2017 6:28 [facility] MCH 32.4 27.6 - 33.0 pg 06/16/2017 6:28 [facility] MCHC 34.8 32.8 - 36.4 gm/dl 06/16/2017 6:28 [facility] RDW-CV 11.9 <14.2 % 06/16/2017 6:28 [facility] RDW-SD 40.8 <46.0 fl 06/16/2017 6:28 [facility] PLT 204 141 - 377 K/cmm 06/16/2017 6:28 [facility] MPV 12.4 9.5 - 12.7 fl 06/16/2017 6:28 EDT [facility] Blood specimen (specimen) BLOOD SPECIMEN / Unknown 06/16/2017 5:39 EDT 06/16/2017 6:15 EDT Michael Pratt MD HEMATOLOGY & PF4 ORD ERABLES Performing Organization Address City/[facility]/ZIP Co de Phone Number [facility] [address] [place] [address] * CREATININE (06/16/2017 5:39 EDT) Creatinine 0.67 0.66 - 1.25 mg/dl 06/16/2017 6:48 EDT [facility] GFR, Calculated 100 >60 ml/min/1.7 3m2 06/16/2017 6:48 EDT [facility] Comment: eGFR calculated using CKD-EPI equation for non Americans. Multiply eGFR by 1.16 for Americans. Blood specimen (specimen) BLOOD SPECIMEN / Unknown 06/16/2017 5:39 EDT 06/16/2017 6:15 EDT Michael Pratt MD CHEMISTRY & BLOOD GA S ORDERABLES Performing Organization Address City/[facility] Co de Phone Number [facility] [address] [place] [address] * MAGNESIUM (06/15/2017 5:31 EDT) Magnesium 1.7 1.7 - 2.8 mg/dl 06/15/2017 6:24 EDT [facility] Blood specimen (specimen) BLOOD SPECIMEN / Unknown 06/15/2017 5:31 EDT 06/15/2017 5:48 EDT Michael Pratt MD CHEMISTRY & BLOOD GA S ORDERABLES Performing Organization Address City/[facility]/ZIP Co de Phone Number [facility] [address] [place] [address] * (ABNORMAL) ELECTROLYTES (06/15/2017 5:31 EDT) Sodium 133(L) 136 - 145 mEq/L 06/15/2017 6:24 EDT [facility] Potassium 3.4(L) 3.5 - 5.0 mEq/L 06/15/2017 6:24 [facility] Chloride 90(L) 96 - 110 mEq/L 06/15/2017 6:24 T [facility] CO2 34(H) 22 - 32 mEq/L 06/15/2017 6:24 T [facility] Blood specimen (specimen) BLOOD SPECIMEN / Unknown 06/15/2017 5:31 EDT 06/15/2017 5:48 EDT Michael Pratt MD CHEMISTRY & BLOOD GA S ORDERABLES Performing Organization Address City/State/[facility] Co de Phone Number [facility] [address] [place] [address] * (ABNORMAL) HEMAGRAM (06/15/2017 5:31 EDT) Pathologist [facility] WBC 11.63(H) 4.0 - 10.4 K/cmm 06/15/2017 5:58 [facility] RBC 3.51(L) 4.36 - 5.78 M/cmm 06/15/2017 5:58 [facility] Hemoglobin 11.4(L) 13.8 - 17.3 gm/dl 06/15/2017 5:58 [facility] HCT 33.1(L) 39.5 - 50.2 % 06/15/2017 5:58 [facility] MCV 94 81 - 95 fl 06/15/2017 5:58 [facility] MCH 32.5 27.6 - 33.0 pg 06/15/2017 5:58 [facility] MCHC 34.4 32.8 - 36.4 gm/dl 06/15/2017 5:58 [facility] RDW-CV 12.0 <14.2 % 06/15/2017 5:58 [facility] RDW-SD 41.4 <46.0 fl 06/15/2017 5:58 [facility] PLT 240 141 - 377 K/cmm 06/15/2017 5:58 EDT [facility] MPV 11.1 9.5 - 12.7 fl 06/15/2017 5:58 EDT [facility] Blood specimen (specimen) BLOOD SPECIMEN / Unknown 06/15/2017 5:31 EDT 06/15/2017 5:48 EDT Michael Pratt MD HEMATOLOGY & PF4 ORD ERABLES [facility] [address] [place] [address] * (ABNORMAL) CREATININE (06/15/2017 5:31 EDT) Creatinine 0.65(L) 0.66 - 1.25 mg/dl 06/15/2017 6:24 EDT [facility] GFR, Calculated 101 >60 ml/min/1.7 3m2 06/15/2017 6:24 EDT [facility] Comment: eGFR calculated using CKD-EPI equation for non Americans. Multiply eGFR by 1.16 for Americans. Blood specimen (specimen) BLOOD SPECIMEN / Unknown 06/15/2017 5:31 EDT 06/15/2017 5:48 EDT Michael Pratt MD CHEMISTRY & BLOOD GA S ORDERABLES Performing Organization Address City/[facility] Co de Phone Number [facility] [address] [place] [address] * INPATIENT ADD-ON (06/14/2017 8:00 EDT) Tests to be added PLEASE ADD ON DIFFERENTIAL TO CBC 06/14/2017 7:59 EDT [facility] Number for problems M5 06/14/2017 8:01 T [facility] Accession number [id number] 06/14/2017 8:01 EDT [facility] TOPOGRAPHY UNKNOWN / Unknown 06/14/2017 8:00 EDT 06/14/2017 8:01 EDT Catherine Walker MD HEMATOLOGY & PF4 ORD ERABLES [facility] [address] [place] [address] * (ABNORMAL) DIFFERENTIAL (06/14/2017 5:32 EDT) % Neutrophils 72.2 % 06/14/2017 8:47 EDT [facility] % Lymphocytes 14.9 % 06/14/2017 8:47 EDT [facility] % Monocytes 12.1 % 06/14/2017 8:47 EDT [facility] % Eosinophils 0.1 % 06/14/2017 8:47 T [facility] % Basophils 0.2 % 06/14/2017 8:47 EDT [facility] % Immature Grans 0.5 % 06/14/2017 8:47 EDT [facility] ABS Neutrophils 8.96(H) 2.20 - 8.85 K/cmm 06/14/2017 8:47 EDT [facility] ABS Lymphs 1.85 1.09 - 3.30 K/cmm 06/14/2017 8:47 EDT [facility] ABS Monocytes 1.50(H) 0.1 - 0.8 K/cmm 06/14/2017 8:47 T [facility] ABS Eosinophils 0.01(L) 0.03 - 0.61 K/cmm 06/14/2017 8:47 T [facility] ABS Basophils 0.02 0.01 - 0.11 K/cmm 06/14/2017 8:47 EDT [facility] ABS Immature Grans 0.06 0 - 0.06 K/cmm 06/14/2017 8:47 T [facility] Type of Diff: Automated 06/14/2017 8:47 [facility] BLOOD SPECIMEN / Unknown 06/14/2017 5:32 EDT 06/14/2017 5:53 EDT Michael Pratt MD HEMATOLOGY & PF4 ORD ERABLES [facility] [address] [place] [address] * MAGNESIUM (06/14/2017 5:32 EDT) Magnesium 2.0 1.7 - 2.8 mg/dl 06/14/2017 6:25 EDT [facility] Blood specimen (specimen) BLOOD SPECIMEN / Unknown 06/14/2017 5:32 EDT 06/14/2017 5:53 EDT Michael Pratt MD CHEMISTRY & BLOOD GA S ORDERABLES Performing Organization Address [facility] Co de Phone Number [facility] [address] [place] [address] * (ABNORMAL) ELECTROLYTES (06/14/2017 5:32 EDT) Pathologist [facility] Sodium 133(L) 136 - 145 mEq/L 06/14/2017 6:25 EDT [facility] Potassium 3.6 3.5 - 5.0 mEq/L 06/14/2017 6:25 EDT [facility] Chloride 91(L) 96 - 110 mEq/L 06/14/2017 6:25 EDT [facility] CO2 31 22 - 32 mEq/L 06/14/2017 6:25 EDT [facility] Blood specimen (specimen) BLOOD SPECIMEN / Unknown 06/14/2017 5:32 EDT 06/14/2017 5:53 EDT Michael Pratt MD CHEMISTRY & BLOOD GA S ORDERABLES Performing Organization Address City/[facility]/ZIP Co de Phone Number [facility] [address] [place] [address] * (ABNORMAL) HEMAGRAM (06/14/2017 5:32 EDT) WBC 12.41(H) 4.0 - 10.4 K/cmm 06/14/2017 6:00 EDT [facility] RBC 3.64(L) 4.36 - 5.78 M/cmm 06/14/2017 6:00 EDT [facility] Hemoglobin 11.9(L) 13.8 - 17.3 gm/dl 06/14/2017 6:00 EDT [facility] HCT 33.8(L) 39.5 - 50.2 % 06/14/2017 6:00 EDT [facility] MCV 93 81 - 95 fl 06/14/2017 6:00 EDT [facility] MCH 32.7 27.6 - 33.0 pg 06/14/2017 6:00 EDT [facility] MCHC 35.2 32.8 - 36.4 gm/dl 06/14/2017 6:00 EDT [facility] RDW-CV 11.9 <14.2 % 06/14/2017 6:00 T [facility] RDW-SD 40.7 <46.0 fl 06/14/2017 6:00 EDT [facility] PLT 243 141 - 377 K/cmm 06/14/2017 6:00 T [facility] MPV 11.7 9.5 - 12.7 fl 06/14/2017 6:00 T [facility] Blood specimen (specimen) BLOOD SPECIMEN / Unknown 06/14/2017 5:32 EDT 06/14/2017 5:53 EDT Michael Pratt MD HEMATOLOGY & PF4 ORD ERABLES [facility] [address] [place] [address] * (ABNORMAL) CREATININE (06/14/2017 5:32 EDT) Creatinine 0.60(L) 0.66 - 1.25 mg/dl 06/14/2017 6:25 EDT [facility] GFR, Calculated 105 >60 ml/min/1.7 3m2 06/14/2017 6:25 EDT [facility] Comment: eGFR calculated using CKD-EPI equation for non Americans. Multiply eGFR by 1.16 for Americans. Blood specimen (specimen) BLOOD SPECIMEN / Unknown 06/14/2017 5:32 EDT 06/14/2017 5:53 EDT Michael Pratt MD CHEMISTRY & BLOOD GA S ORDERABLES Performing Organization Address City/[facility]/ZIP Co de Phone Number [facility] [address] [place] [address] * INPATIENT ADD-ON (06/13/2017 15:00 EDT) Tests to be added PLEASE ADD ON HEMATOCRIT TO PLEURAL FLUID OBTAINED TODAY (06/13). THANK YOU 06/13/2017 14:56 EDT [facility] Number for problems [id number] 06/13/2017 15:05 EDT [facility] Accession number [id number] 06/13/2017 15:15 EDT [facility] Comment:Corrected on 06/13 A T 1515: Previously reported as [id number] TOPOGRAPHY UNKNOWN / Unknown 06/13/2017 15:00 EDT 06/13/2017 15:02 EDT Catherine Walker MD HEMATOLOGY & PF4 ORD ERABLES Performing Organization Address [facility] System/[facility]/ZIP Co de Phone Number [facility] [address] [place] [address] * INPATIENT ADD-ON (06/13/2017 15:00 EDT) Tests to be added TOTAL PROTEIN,LD H 06/13/2017 14:55 EDT [facility] Number for problems [id number] 06/13/2017 15:01 EDT [facility] Accession number [id number] 06/13/2017 15:02 EDT [facility] Comment:Corrected on 06/13 A T 1502: Previously reported as [id number] TOPOGRAPHY UNKNOWN / Unknown 06/13/2017 15:00 EDT 06/13/2017 15:01 EDT Catherine Walker MD HEMATOLOGY & PF4 ORD ERABLES Performing Organization Address City/[facility]/ZIP Co de Phone Number [facility] [address] [place] [address] * CT CHEST (PE) PROTOCOL W CONTRAST [...] the bilateral lower extremities. Rahat Aviles MD [facility] US ORDERABLES * IR THORACENTESIS [...] sterile technique and under local anesthesia, a 8-Burmese thoracentesis catheter was advanced into the left [...] sterile technique and under local anesthesia, a 8-Burmese thoracentesis catheter was advanced into the left [...] y Fld <3.0 % 06/13/2017 16:01 EDT [facility] PLEURAL FLUID SPECIMEN / Unknown 06/13/2017 8:26 EDT 06/13/2017 8:49 EDT Michael Pratt MD GEN LAB UNIT COLLECT ORDERABLES Performing Organization Address City/[facility] Co de Phone Number [facility] [address] [place] [address] * FLUID DIFFERENTIAL (06/13/2017 8:26 EDT) Neutrophils, Fluid 33 % 06/13/2017 12:15 EDT [facility] Lymphocytes, Fluid 50 % 06/13/2017 12:15 EDT [facility] [place]/Macro, Fluid 12 % 06/13/2017 12:15 EDT [facility] Mesothelial 5 % 06/13/2017 12:15 T [facility] Fluid Comment Rev'd by Pathologist 06/13/2017 12:15 EDT [facility] PLEURAL FLUID SPECIMEN / Unknown 06/13/2017 8:26 EDT 06/13/2017 8:49 EDT Michael Pratt MD GEN LAB UNIT COLLECT ORDERABLES Performing Organization Address City/[facility]/ZIP Co de Phone Number [facility] [address] [place] [address] * PH, PLEURAL FLUID (06/13/2017 8:26 EDT) Pleural Fluid pH 7.42 06/14/19 18 9:12 EDT [facility] Comment: Reference range: Pleural fluid Exudate: 7.30-7.45 Transudate: 7.40-7.55 A pleural fluid pH <7.30 is generally associated with a complicated parapneumonic effusion, empyema, connective tissue disease of the pleura or malignant effusion. PLEURAL FLUID SPECIMEN / Unknown 06/13/2017 8:26 EDT 06/13/2017 9:00 EDT Michael Pratt MD GEN LAB UNIT COLLECT ORDERABLES [facility] [address] [place] [address] * BACTERIAL CULTURE/SMEAR, FLUID (06/13/2017 8:26 EDT) Gram Smear Result Polys present 06/13/2017 10:07 EDT [facility] Gram Smear Result No bacteria seen 06/13/2017 10:07 EDT [facility] Result No growth 06/15/2017 7:29 EDT [facility] FOSMIC PLEURAL FLUID SPECIMEN / Unknown 06/13/2017 8:26 EDT 06/13/2017 9:19 EDT Comment:Left Michael Pratt MD MICROBIOLOGY - GENER AL ORDERABLES Performing Organization Address City/[facility]/ZIP Co de Phone Number [facility] [address] [place] [address] * FLUID CELL COUNT (06/13/2017 8:26 EDT) RBC, Fluid 44,000 /cmm 06/13/2017 10:31 EDT [facility] Nucleated Cells 11,202 /cmm 06/13/2017 10:31 EDT [facility] Fluid Comment MODERATELY BLOODY, MODERATELY CLOUDY 06/13/2017 10:31 EDT [facility] Body fluid specimen (specimen) PLEURAL FLUID SPECIMEN / Unknown 06/13/2017 8:26 EDT 06/13/2017 8:49 EDT Michael Pratt MD GEN LAB UNIT COLLECT ORDERABLES Performing Organization Address City/[facility]/ZIP Co de Phone Number [facility] [address] [place] [address] * TOTAL PROTEIN, FLUID (06/13/2017 8:26 EDT) Protein, Fluid 5.2 g/dl 06/13/2017 10:18 EDT [facility] Comment: Reference Range: Pleural fluid specimen (specimen) Exudate > 3.0 g/dl Pleural fluid specimen (specimen) Transudate <3.0 g/dl Peritoneal fluid sample (specimen) Serum ascites to albumin gradient (SAGG) superior to total protein content in differentiating causes of effusion. Pleural fluid specimen (specimen) [facility] PLEURAL FLUID SPECIMEN / Unknown 06/13/2017 8:26 EDT 06/13/2017 8:51 EDT Michael Pratt MD GEN LAB UNIT COLLECT ORDERABLES Performing Organization Address [facility] Co de Phone Number [facility] [address] [place] [address] * LDH, FLUID (06/13/2017 8:26 EDT) LDH, Fluid 654 U/L 06/13/2017 10:18 EDT [facility] Comment: Pleural fluid specimen (specimen) Reference Range: Suggestive of exudate if fluid cholesterol is > 45 mg/dl or fluid LDH is greater than 0.45 times the upper limit of normal serum LDH levels. Peritoneal fluid sample (specimen) No reference range available Pleural fluid specimen (specimen) [facility] PLEURAL FLUID SPECIMEN / Unknown 06/13/2017 8:26 EDT 06/13/2017 8:51 EDT Michael Pratt MD GEN LAB UNIT COLLECT ORDERABLES Performing Organization Address City/[facility]/ZIP Co de Phone Number [facility] [address] [place] [address] * GLUCOSE, FLUID (06/13/2017 8:26 EDT) Glucose, Fluid 88 mg/dl 06/13/2017 10:18 EDT [facility] Comment: Reference Range: Pleural fluid specimen (specimen) Low glucose is accepted as <60 mg/dl or pleural fluid to serum glucose ratio of <0.5. Peritoneal fluid sample (specimen) Low glucose is generally accepted as <50 mg/dl. Pleural fluid specimen (specimen) [facility] PLEURAL FLUID SPECIMEN / Unknown 06/13/2017 8:26 EDT 06/13/2017 8:51 EDT Michael Pratt MD GEN LAB UNIT COLLECT ORDERABLES Performing Organization Address City/[facility]/ZIP Co de Phone Number [facility] [address] [place] [address] * CREATININE, FLUID (06/13/2017 8:26 EDT) Creatinine, Fluid 0.57 mg/dl 06/13/2017 10:18 EDT [facility] Comment: Reference Range: Pleural fluid specimen (specimen) No reference range available Peritoneal fluid sample (specimen) No reference range available Drain device specimen (specimen) No reference range available Pleural fluid specimen (specimen) [facility] PLEURAL FLUID SPECIMEN / Unknown 06/13/2017 8:26 EDT 06/13/2017 8:51 EDT Michael Pratt MD GEN LAB UNIT COLLECT ORDERABLES Performing Organization Address City/[facility]/ZIP Co de Phone Number [facility] [address] [place] [address] * PROTEIN, TOTAL (06/13/2017 6:08 EDT) Total Protein 7.2 6.3 - 8.2 g/dl 06/13/2017 15:23 EDT [facility] BLOOD SPECIMEN / Unknown 06/13/2017 6:08 EDT 06/13/2017 6:38 EDT Michael Pratt MD CHEMISTRY & BLOOD GA S ORDERABLES Performing Organization Address [facility]/ZIP Co de Phone Number [facility] [address] [place] [id number] * LDH (06/13/2017 6:08 EDT) LDH 428 313 - 618 U/L 06/13/2017 15:23 EDT [facility] BLOOD SPECIMEN / Unknown 06/13/2017 6:08 EDT 06/13/2017 6:38 EDT Michael Pratt MD CHEMISTRY & BLOOD GA S ORDERABLES [facility] [address] [place] [address] * (ABNORMAL) MAGNESIUM (06/13/2017 6:08 EDT) Magnesium 1.4(L) 1.7 - 2.8 mg/dl 06/13/2017 7:07 EDT [facility] Blood specimen (specimen) BLOOD SPECIMEN / Unknown 06/13/2017 6:08 EDT 06/13/2017 6:38 EDT Michael Pratt MD CHEMISTRY & BLOOD GA S ORDERABLES Performing Organization Address [facility] Co de Phone Number [facility] [address] [place] [address] * (ABNORMAL) ELECTROLYTES (06/13/2017 6:08 EDT) Sodium 132(L) 136 - 145 mEq/L 06/13/2017 7:07 EDT [facility] Potassium 3.6 3.5 - 5.0 mEq/L 06/13/2017 7:07 EDT [facility] Chloride 91(L) 96 - 110 mEq/L 06/13/2017 7:07 EDT [facility] CO2 29 22 - 32 mEq/L 06/13/2017 7:07 EDT [facility] Blood specimen (specimen) BLOOD SPECIMEN / Unknown 06/13/2017 6:08 EDT 06/13/2017 6:38 EDT Michael Pratt MD CHEMISTRY & BLOOD GA S ORDERABLES Performing Organization Address [facility]/ZIP Co de Phone Number [facility] [address] [place] [address] * (ABNORMAL) HEMAGRAM (06/13/2017 6:08 EDT) WBC 9.97 4.0 - 10.4 K/cmm 06/13/2017 6:52 [facility] RBC 3.76(L) 4.36 - 5.78 M/cmm 06/13/2017 6:52 [facility] Hemoglobin 12.2(L) 13.8 - 17.3 gm/dl 06/13/2017 6:52 [facility] HCT 34.9(L) 39.5 - 50.2 % 06/13/2017 6:52 [facility] MCV 93 81 - 95 fl 06/13/2017 6:52 [facility] MCH 32.4 27.6 - 33.0 pg 06/13/2017 6:52 [facility] MCHC 35.0 32.8 - 36.4 gm/dl 06/13/2017 6:52 [facility] RDW-CV 11.8 <14.2 % 06/13/2017 6:52 [facility] RDW-SD 40.4 <46.0 fl 06/13/2017 6:52 [facility] PLT 223 141 - 377 K/cmm 06/13/2017 6:52 [facility] MPV 11.9 9.5 - 12.7 fl 06/13/2017 6:52 [facility] Blood specimen (specimen) BLOOD SPECIMEN / Unknown 06/13/2017 6:08 EDT 06/13/2017 6:38 EDT Michael Pratt MD HEMATOLOGY & PF4 ORD ERABLES [facility] [address] [place] [address] * (ABNORMAL) CREATININE (06/13/2017 6:08 EDT) Creatinine 0.58(L) 0.66 - 1.25 mg/dl 06/13/2017 7:07 [facility] GFR, Calculated 106 >60 ml/min/1.7 3m2 06/13/2017 7:07 [facility] Comment: eGFR calculated using CKD-EPI equation for non Americans. Multiply eGFR by 1.16 for Americans. Blood specimen (specimen) BLOOD SPECIMEN / Unknown 06/13/2017 6:08 EDT 06/13/2017 6:38 EDT Michael Pratt MD CHEMISTRY & BLOOD GA S ORDERABLES Performing Organization Address [facility] de Phone Number [facility] [address] [place] [address] * (ABNORMAL) PROTIME (06/13/2017 6:08 EDT) Pro Time 14.0(H) 10.3 - 13.4 secs 06/13/2017 7:00 EDT [facility] Comment:NOTE NEW REFERENCE Vern FUNG OF APR 03 2017 I.N.R. 1.2(H) 0.9 - 1.1 Ratio 06/13/2017 7:00 EDT [facility] Comment: Moderate Intensity Coumadin INR = 2.0-3.0 Adjustments in anticoagulant therapy dose should be based upon the INR and NOT the Pro Time. Blood specimen (specimen) BLOOD SPECIMEN / Unknown 06/13/2017 6:08 EDT 06/13/2017 6:38 EDT Michael Pratt MD HEMATOLOGY & PF4 ORD ERABLES Performing Organization Address [facility] de Phone Number [facility] [address] [place] [address] * BACTERIAL CULTURE, BLOOD (06/12/2017 22:47 EDT) Result No growth 06/17/2017 7:12 EDT [facility] Blood specimen (specimen) BLOOD SPECIMEN / Unknown 06/12/2017 22:47 EDT 06/12/2017 23:20 EDT Comment:Left~Antecubital Denilson Shannon MD MICROBIOLOGY - GENE RAL ORDERABLES Performing Organization Address [facility] Co de Phone Number [facility] [address] [place] [address] * (ABNORMAL) D-DIMER (06/12/2017 22:40 EDT) D-Dimer 724(H) <230 ng/mL 06/12/2017 23:14 EDT [facility] Comment: CUTOFF VALUE FOR THE EXCLUSION OF DVT and PE: 230 ng/mL D-dimer units Any use of the age-adjusted cutoff value is a post-analytic modification of this FDA-approved test and is considered off-label use of the test result. [facility] laboratory does not have literature to support the validity of an age-adjusted cutoff for our specific assay. Blood specimen (specimen) BLOOD SPECIMEN / Unknown 06/12/2017 22:40 EDT 06/12/2017 22:57 EDT Rahat Aviles MD HEMATOLOGY & PF4 OR DERABLES Performing Organization Address City/[facility]/ZIP Co de Phone Number [facility] [address] [place] [address] * BACTERIAL CULTURE, BLOOD (06/12/2017 22:40 EDT) Result No growth 06/17/2017 7:12 EDT [facility] Blood specimen (specimen) BLOOD SPECIMEN / Unknown 06/12/2017 22:40 EDT 06/12/2017 23:20 EDT Comment:Right~Antecubital Denilson Shannon MD MICROBIOLOGY - GENE RAL ORDERABLES [facility] [address] [place] [address] * INPATIENT ADD-ON (06/12/2017 21:30 EDT) Tests to be added NT PRO BNP 06/12/2017 21:28 EDT [facility] Number for problems Not Given 06/12/2017 21:31 EDT [facility] Accession number [id number] 06/12/2017 21:31 EDT [facility] TOPOGRAPHY UNKNOWN / Unknown 06/12/2017 21:30 EDT 06/12/2017 21:31 EDT Denilson Shannon MD HEMATOLOGY & PF4 OR DERABLES [facility] [address] [place] [address] * CHEST PA AND LATERAL (06/12/2017 20:56 [...] added HIGH SENSITIVITY CRP 06/12/2017 19:17 EDT [facility] Number for problems [id number] 06/12/2017 19:24 EDT [facility] Accession number [id number] 06/12/2017 19:24 EDT [facility] TOPOGRAPHY UNKNOWN / Unknown 06/12/2017 19:20 EDT 06/12/2017 19:21 EDT Michael Pratt MD HEMATOLOGY & PF4 ORD ERABLES Performing Organization Address [facility] Co de Phone Number [facility] [address] [place] [address] * (ABNORMAL) NT PRO BNP (06/12/2017 18:37 EDT) [facility] NT Pro BNP 1,380(H) <300 pg/ml 06/12/2017 22:19 EDT [facility] Comment: Reference Range: NT-proBNP [...] Performing Organization Address [facility]/ZIP Co de Phone Number [facility] [address] [place] [address] * HIGH SENSITIVITY C-REACTIVE PROTEIN (CARDIOVASCULAR DISEASE) (06/12/2017 18:37 EDT) [facility] High Sensitivity CRP 83.3 mg/L 06/13/2017 10:08 EDT [facility] Comment: Reference Range: <1.0 mg/L Low risk 1.0-3.0 mg/L Average risk >3.0 mg/L High risk >10.0 mg/L Acute inflammation BLOOD SPECIMEN / Unknown 06/12/2017 18:37 EDT 06/12/2017 18:58 EDT Catherine Walker MD CHEMISTRY & BLOOD GA S ORDERABLES Performing Organization Address City/[facility]/ZIP Co de Phone Number [facility] [address] [place] [address] * TROPONIN I (06/12/2017 18:37 EDT) Troponin I (ng/mL) <0.034 <0.034 ng/ml 06/12/2017 19:49 EDT [facility] Blood specimen (specimen) BLOOD SPECIMEN / Unknown 06/12/2017 18:37 EDT 06/12/2017 18:58 EDT Catherine Walker MD CHEMISTRY & BLOOD GA S ORDERABLES Performing Organization Address City/[facility] Co de Phone Number [facility] [address] [place] [address] * (ABNORMAL) HEMAGRAM (06/12/2017 18:37 EDT) WBC 17.10(H) 4.0 - 10.4 K/cmm 06/12/2017 19:04 [facility] RBC 3.70(L) 4.36 - 5.78 M/cmm 06/12/2017 19:04 [facility] Hemoglobin 12.2(L) 13.8 - 17.3 gm/dl 06/12/2017 19:04 [facility] HCT 34.1(L) 39.5 - 50.2 % 06/12/2017 19:04 [facility] MCV 92 81 - 95 fl 06/12/2017 19:04 [facility] MCH 33.0 27.6 - 33.0 pg 06/12/2017 19:04 [facility] MCHC 35.8 32.8 - 36.4 gm/dl 06/12/2017 19:04 [facility] RDW-CV 11.6 <14.2 % 06/12/2017 19:04 EDT [facility] RDW-SD 39.4 <46.0 fl 06/12/2017 19:04 EDT [facility] PLT 206 141 - 377 K/cmm 06/12/2017 19:04 EDT [facility] MPV 12.3 9.5 - 12.7 fl 06/12/2017 19:04 EDT [facility] Blood specimen (specimen) BLOOD SPECIMEN / Unknown 06/12/2017 18:37 EDT 06/12/2017 18:58 EDT Catherine Walker MD HEMATOLOGY & PF4 ORD ERABLES Performing Organization Address City/[facility]/ZIP Co de Phone Number [facility] [address] [place] [address] * BUN (06/12/2017 18:37 EDT) BUN 10 10 - 26 mg/dl 06/12/2017 19:34 EDT [facility] Blood specimen (specimen) BLOOD SPECIMEN / Unknown 06/12/2017 18:37 EDT 06/12/2017 18:58 EDT Catherine Walker MD CHEMISTRY & BLOOD GA S ORDERABLES Performing Organization Address [facility] Co de Phone Number [facility] [address] [place] [address] * (ABNORMAL) ELECTROLYTES (06/12/2017 18:37 EDT) Sodium 129(L) 136 - 145 mEq/L 06/12/2017 19:34 EDT [facility] Potassium 3.4(L) 3.5 - 5.0 mEq/L 06/12/2017 19:34 T [facility] Chloride 91(L) 96 - 110 mEq/L 06/12/2017 19:34 T [facility] CO2 27 22 - 32 mEq/L 06/12/2017 19:34 EDT [facility] Blood specimen (specimen) BLOOD SPECIMEN / Unknown 06/12/2017 18:37 EDT 06/12/2017 18:58 EDT Catherine Walker MD CHEMISTRY & BLOOD GA S ORDERABLES Performing Organization Address [facility] de Phone Number [facility] [address] [place] [address] * (ABNORMAL) CREATININE (06/12/2017 18:37 EDT) Creatinine 0.54(L) 0.66 - 1.25 mg/dl 06/12/2017 19:34 EDT [facility] GFR, Calculated 109 >60 ml/min/1.7 3m2 06/12/2017 19:34 EDT [facility] Comment: eGFR calculated using CKD-EPI equation for non Americans. Multiply eGFR by 1.16 for Americans. Blood specimen (specimen) BLOOD SPECIMEN / Unknown 06/12/2017 18:37 EDT 06/12/2017 18:58 EDT Catherine Walker MD CHEMISTRY & BLOOD GA S ORDERABLES Performing Organization Address [facility] de Phone Number [facility] [address] [place] [address] * EKG 12-LEAD (06/12/2017 18:27 EDT) 06/12/2017 18:2 7 EDT Narrative [facility] EKG - 06/29/2017 15:57 EDT ? [facility] ? Test Date: ?2017-06-12 Pat Name: ? DAIVD FARFAN ?Department: ?? Subha Chao ? Room: ? ME505 Gender: ? Male ? Radiotelegrapher: ?? [id number] : ?1950 ? Requested By: GISELA Dunn Order Number: [id number] ? Reading MD: ?? SENG PERSON SA MD ? Measurements Intervals ?[place] ? Rate: ? 120 ?P: ?165 [place]: [...] Seng Brody Sa, MD - 06/29/2017 [facility] Test Date: 2017-06-12 Pat Name: DAVID FARFAN Department: [place] [address] [place] [facility] Gender: Male Radiotelegrapher: [id number] : 1950 Requested By: GISELA Dunn Order Number: [id number] Reading MD: SENG ROBLEDO Measurements Intervals [place] Rate: 120 P: 165 [place]: 235 QRS: [...] Catherine Walker MD CARDIAC ECG ORDERABL ES [facility] EKG documented in this encounter Visit [...] 1 06/12/2017 MEASURE WEIGHT 1 06/12/2017 NOTIFY [employer] MATH TEACHER 1 06/12/2017 VTE PHARMACOLOGIC PROPHYLAXI S CURRENTLY [...] 06/01 documented in this encounter Care Teams Drywall Contractor Relationship Specialty Start Date End Date Katia Stone, MINGO [address] [place] [phone] PCP - General 05/02/17 documented as of this encounter
--- OUTSIDE RECORDS SUMMARY | 2023-12-24 18:44 | XMS_ITS | Encounter Summary ---
Author Organization [facility] Address [address] [place] [address] Care Team Providers Care Mine Car Mechanic Name Role Phone Katia Stone PA-C Primary Care Provider +1- [phone] Reason for Visit * Reason Onset Date Comments Follow-up 12/23/2019 TE 11/02 Encounter Details Date Type Department Care Team (Late st Contact Info) Description 12/23/2019 Telephone [facility] - [address] [place], [place] [id number] Tony Rosenberg MD [address] [place] [address] [address] [place] [address] Follow-up (TE 11/02) Social History [...] on filedocumented in this encounter Care Teams Mine Car Mechanic Relationship Specialty Start Date End Date Katia Stone, PABijalC [address] [place] [phone] PCP - General 05/02/17 documented as of this encounter
--- OUTSIDE RECORDS SUMMARY | 2023-12-24 18:44 | XMS_ITS | Encounter Summary ---
Author Organization [facility] Address [address] [place] [address] Care Team Providers Care Rotary Swaging Machine Operator Name Role Phone Katia Stone PA-C Primary Care Provider +1- [phone] Reason for Visit * Reason Onset Date Comments Coordination Of Care 11/12/2019 Encounter Details Date Type Department Care Team (Late st Contact Info) Description 11/12/2019 Telephone [facility] Cardiology - [place] [address] Belinda Falk, TISH Coordination Of [...] RN - 11/12/2019 1036 EDT An from [employer] calling in to report that patient has had fallen 3 times yesterday. documented in this encounter Plan of Treatment Not on file documented as of this encounter Visit Diagnoses Not on filedocumented in this encounter Care Teams Rotary Swaging Machine Operator Relationship Specialty Start Date End Date Katia Stone, BELLAC [address] [place] [phone] PCP - General 05/02/17 documented as of this encounter
[2023-12-24 18:45] LABS: ALT 23 U/L (16-63); AST 26 U/L (15-37); Albumin 2.8 g/dL (3.4-5.0); Alkaline Phosphatase 92 U/L (46-116); Anion Gap 7.4 mmol/L (3-11); BUN 13 mg/dL (7-18); Bilirubin, Total 0.28 mg/dL (0.2-1.0); CO2 28.6 mmol/L (21.0-32.0); CREATININE 0.7 mg/dL (0.70-1.30); Chloride 105 mmol/L (98-107); Estimated GFR 97.29 (mL/min/1.73m2); Glucose 115 mg/dL (74-106); Potassium 3.4 mmol/L (3.5-5.1); Sodium 141 mmol/L (136-145); Total Protein 7.1 g/dL (6.4-8.2)
--- OUTSIDE RECORDS SUMMARY | 2023-12-24 18:45 | XMS_ITS | Encounter Summary ---
Author Organization [facility] Address [address] [place] [address] Care Team Providers Care Night Club Manager Name Role Phone None, Provider Primary Care Provider Katia Wilks PA-C Primary Care Provider [phone] Reason for Referral * (Routine) - Receiving Office to Obtain Authorization Specialty Diagnoses / Procedures Referred By Jael ho Referred To Contact Coleen Yañez NP [address] [place] [phone] Referral ID Status Reason Start Date Expiration Date Visits Requested Visits Authorized [id number] Receiving Office to Obtain Authorization Specialty Services [...] ho Referred To Contact Coleen Yañez NP [address] [place] [phone] Referral ID Status Reason Start Date Expiration Date Visits Requested Visits Authorized [id number] Receiving Office to Obtain Authorization Specialty Services Required 05/02/2017 1 1 Comments You must contact us if we have not contacted you or you have missed your scheduled appointment. If you have any nursing questions, please don't hesitate to call the Cardiac Arrhythmia Service at [facility] at [phone] or , extension [phone]. For any scheduling of appointments, please call [phone] or , extension [phone]. . * (Routine) - Receiving Office to Obtain Authorization Specialty Diagnoses / Procedures Referred By Contac t Referred To Contact Coleen Yañez NP [address] [phone] Referral ID Status Reason Start Date Expiration Date Visits Requested Visits Authorized [id number] Receiving Office to Obtain Authorization Specialty Services Required 05/02/2017 1 1 Comments Appointment on May 13, 2017 at 9 am for an incision site check with the nurse in the device clinic at [facility]. Phone [phone]. [facility] is located at [address] [place] [address] * (Routine) - Receiving Office to Obtain Authorization Specialty Diagnoses / Procedures Referred By Contac t Referred To Contact Coleen Yañez NP [address] [place] [phone] Referral ID Status Reason Start Date Expiration Date Visits Requested Visits Authorized [id number] Receiving Office to Obtain Authorization Specialty Services [...] scheduled at your first appointment. - [facility] [address] [facility] [place] -Clinics are also held in [facility], and [place], [place] and [facility]. If you live in those areas, we will make arrangements for follow-up appointments in one of those clinics.. Reason for Visit * Reason Comments Bradycardia Pt transferred [place] with new complete heart block. VSS on arrival. CC DOBBS. Encounter Details Date Type Department Care Team (Late st Contact Info) Description 04/30/2017 17:08 EST - 05/04/2017 18:10 EST Hospital Encounter [facility] Cardiac/Telemetry Unit [address] [place] [id number] Bridget Fields MD [address] [place] [phone] Kenneth Hendrickson MD [address] [place] [phone] Houston Corey MD [address] [place] [phone] Heart block AV third degree (CMS-HCC) (HCC-CMS) [...] Principal/Final Diagnosis: Heart block AV third degree ([facility]) Additional Problems Managed in the Hospital Active Hospital Problems Diagnosis Date Noted ??? *Heart block AV third degree ([facility]) 04/30/2017 ??? Hypertensive urgency 05/01/2017 ??? Acute on chronic diastolic congestive heart failure ([facility]) 05/01/2017 Resolved Hospital Problems Diagnosis Date Noted Date Resolved No resolved problems to display. Principal Procedure: PPM 05/02/17 Secondary Procedures: none Hospital Course: David Farfan is a 66 y.o. male with no known PMH transferred from [facility] on 04/30/17 for complete heart block. 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 He complianed of 2-3 months of SOB which worsened 2-3 weeks prior to admission and reached critical point 2-3 days prior to admission when he had symptoms at rest with 3 pillow orthopnea and mild increased LE swelling prompting presentation to [facility]. On arrival to ED he was afebrile, HR 58, BP 190/103 withnegative labs. ECHO showed EF 65% with moderate concentric LVH, mild LA dilation and mild AST/TR. His HR dropped to the 30s prompting transfer to [facility]. On arrival here patient was asymptomatic with [...] Visit with Caitie Atwood NP [facility] Cardiology - [facility] (--) [address] [place] [address] [place] [address] Follow-up appointments and procedures Pacemaker check Your [...] scheduled at your first appointment. - [facility] Cardiology is located at [address] in [place] -Clinics are also held in [facility], and [facility]. If [...] the nurse in the device clinic at [facility]. Phone [phone]. [facility] is located at [address] [place] [address] Authorizing Provider: Coleen Yañez NP ~Please note: You must contact us if we have not contacted you or you have missed your scheduled appointment. If you have any nursing questions, please don't hesitate to call the Cardiac Arrhythmia Service at [facility] at or , extension [phone]. For any scheduling of appointments, please call [phone] or , extension [phone]. . Authorizing Provider: Coleen Yañez NP Additional Information: Appointment on May 13, 2017 at 9 am for an incision site check with the nurse in the device clinic at the [facility]. . [facility] is located at [address] [place] [address] . You have an appointment with Katia Mccallum PA-C at [facility] on 05/29/2017 at1:00 pm. If you have questions or need to reschedule your appointment, please call [phone]. Please arrive 15 minutes early to complete any necessary. Bring a copy of this AVS Summary with you. Cardiology follow up on June 16, 2017 at 2:[address] Torres at the [facility]. [facility] is located at [address] [place] [address]. Pacemaker device check on August 05, 2017 at 10 am at the [facility]. [facility] is located at [address] [place] [address]. Discharge Handoff Communication I called Katia Mccallum's [...] nurse in the device clinic at the [facility]. . [facility] is located at [address] [place] [address] . You have an appointment with Katia Mccallum PA-C at [facility] on 05/29/2017 at1:00 pm. If you have questions or need to reschedule your appointment, please call [phone]. Please arrive 15 minutes early to complete any necessary. Bring a copy of this AVS Summary with you. Cardiology follow up on June 16, 2017 at 2:[address] Torres at the [facility]. [facility] is located at [address] [place] [address]. Pacemaker device check on August 05, 2017 at 10 am at the [facility]. [facility] is located at [address] [place] [address]. * Discharge Instr - Other Orders* Melida Natarajan RN - 05/01/2017 9:18 EST Remember the acronym BERNDA - Diet: low salt - Activity: daily [...] ask to be connected with a social security benefits interviewer * Attachments The following attachments cannot be sent through Care Everywhere. * HEART FAILURE: AVOIDING TRIGGERS (MONTENEGRIN) documented in this encounter Medications at Time [...] - 05/04/2017 1500 EST I spoke with customer support consultant CM regarding patient's lack of electricity at his home. She recommended I contact patient's PCP, [facility] for further assistance, but that no other action could be made on Friday. Was unable to leave message for their office today and efforts to contact them on05/02 were met with unreturned messages. I have instructed patient to call their office on Friday to be connected to social security benefits interviewer. Amelia Partida DO Internal Medicine Resident PGY-3 [...] pick him up at [facility]. 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 He reports he uses the [facility] in [place]. Review of Systems Pertinent items are noted [...] known PMH admitted in transfer 04/30/17 from [facility] for asymptomatic complete heart block [...] been connected with Katia Mccallum PA-C for [facility] primary care on 05/29 at 1pm Radha Lowery MD Internal Medicine PGY-2 Pager #[phone] 05/03/2017 13:15 Associated attestation - Houston Corey MD - 05/05/2017 1043 EST Attestation statement: I saw and examined the patient with the resident/fellow. I agree with the findings and plan of care documented in the resident's/fellow's note. Patient seen on 05/02/17 * Desi Villatoro RN - 05/02/2017 1000 EST 05/02: Patient has an appointment with Katia Mccallum PA-C at [facility] on 05/29/2017 at 1:00 to [...] known PMH admitted in transfer 04/30/17 from [facility] for asymptomatic complete heart block [...] been connected with Katia Mccallum PA-C for [facility] primary care on 05/29 at 1pm [...] FOR ADMISSION: Heart block AV third degree ([facility]) Patient understands reason for admission: PATIENT CONTACT INFO VERIFIED: Yes (Eva Rudolph [phone]) PATIENT ADDRESS VERIFIED: Yes LIVING ARRANGEMENTS AND ACCESSIBILITY ISSUES: Living Arrangements: Alone Levels: 1 Stairs to enter: 2 Handicap access: None Bathroom located on bedroom level?: Yes What in home social supports are available to the patient? Friends / neighbors. Patient lives alonein a mobile home in [place]. He has no immediate family and depends [...] For Finances: No TRANSPORTATION: Transportation: Family CULTURAL, PRESYBETERIAN and/or LANGUAGE factors affecting health care/discharge planning: [...] Yes (Patient has gone to [facility] in the past to see Dr. Garcia who has since retired.) Specialists: None Type of Home Health Services: None DME Provider: None Pharmacy: [facility] - [address] - [place], [place] - [address] [facility] [phone] Home Health: None Other: POST HOSPITAL TRANSITION PLAN: Case management will continue to follow through transition to discharge. Anticipate discharge to home when medically stable. No needs are identified at this time. Patient said he has a friend who can provide transportation home. Ivelisse Rueda RN Case Manager #[id number] * Reba Marie, [facility] - 05/01/2017 1111 EST Transitions of Care - Pharmacy Admission Medication Reconciliation David Farfan is a 66 y.o. male admitted on 04/30/2017 for Heart block AV third degree ([facility]) Pharmacist Interventions/Recommendations: 1. Per patient report, the only medication he was taking prior to admission was ibuprofen 400mg daily for knee pain. Counseled patient to stop taking ibuprofen/NSAIDs as they are harmful to the heartand raise blood pressure-->recommended using acetaminophen for pain instead. 2. Confirmed patient would like to use [facility] in [place], [place] at discharge> please send all discharge prescriptions here. 3. Paged team with findings. Medication History Obtained from: Patient (Self) Medication reconciliation was performed. Discrepancies are noted in BOLD. Clarifications are noted in RED. Medications No prescriptions prior to admission. Additional Prior to Admission Vdap-wcz-Pfexhpi Products as noted by Patient/Family: Ibuprofen 400mg daily for knee pain Preferred Pharmacy: [facility] - [place], [place] Barriers to Learning: None apparent Barriers to Obtaining Medications: None apparent Barriers to Taking Medications: None apparent Please feel free to contact me or the Transitions of Care Pharmacy Team with questions or concerns. Thank you Reba Marie, PharmD, [facility] [phone] Pager: [phone] * Houston Corey MD - 05/01/2017 0729 [...] known PMH admitted in transfer 04/30/17 from [facility] for asymptomatic complete heart block [...] H&P Admit Date: 04/30/2017 PCP: Provider None Patient Accounts Clerk: none CC: complete heart block HPI: David Fafran is a 66 y.o. male with no known PMH who presents in transfer from [place] for complete heart block. Briefly, patient last saw a doctor approximately 12 years ago after he was admitted for OK rule outin [place]. He reports having a stress at that time though does not recall being told it was abnormal and was not discharged on any medications. He saw a database software technician once in follow-up and has not [...] present to the ED. On arrival to [facility], patient was afebrile HR 58, [...] ASA 324 mg prior to transfer to [facility]. On arrival here, he [...] remote stress test 12 years ago in [place] Review of Systems A 10 point review of systems was discussed and is negative aside from what is noted in HPI. PMH: none PSH: benign tumor removal R forearm, L knee arthroscopy Family History: no history of early CAD/ OK or heart block Social History: Lifetime non-smoker, currently chews tobacco (1 can lasts 2-3 days). 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 He is currently [...] presents with ??? Bradycardia Pt transferred from [place] with new complete heart block. VSS on arrival. CC DOBBS. HPI HPI Comments: I, Maite Schmitt, am scribing for Kenneth Hendrickson MD while he/she is personallyperforming the service. Maite Schmitt 04/30/2017 17:19 David Farfan is a 66 y.o. male with a history of heart block AV third degree who presents to the ED with bradycardia. The patient was transferred from [place] with complaints of dyspnea on exertion and [...] ER after EKG, whom referred him to [facility] for pacemaker placement. Denies CP, [...] ED with bradycardia.The patient was transferred from [place] with complaints of dyspnea on exertion and [...] W/ CARDS ACCEPTING. NOTE TAKEN DR HENDRICKSON ([facility]). documented in this encounter Miscellaneous Notes * [...] AVS received. Pt left with son and yaacxjlj-bw-jgq via wheelchair. BP 115/79 (BP Cuff Location: [...] Care - Don Alvarado RN - 05/02/2017 3266 EST Problem: Daily Care Plan Goals Goal: [...] Care - Meet Matias RN - 05/02/2017 7797 EST Problem: Daily Care Plan Goals Goal: [...] 05/01/2017 16:03 * Plan of Care - Franisco Chew RN - 05/01/2017 0308 EST Problem: Daily Care Plan Goals Goal: Care Plan Documentation Outcome: Ongoing 05/01/17 0120 Care Plan Focus Area of Focus Circulatory Status Goal This Shift VSS, monitor tele D: Patient arrived to [place] [address] at 1900. Vital signs noted, BP 180s/80s. [...] EST) 05/09/2017 13:5 1 EST Scan 2 Industrial Psychology Professor PROCEDURE/MINOR VELMA GICAL ORDERABLES * ECG REPORT - SCANNED (05/08/2017 8:27 EST) 05/08/2017 8:27 EST Scan 2 Industrial Psychology Professor PROCEDURE/MINOR VELMA GICAL ORDERABLES * IMPLANT RECORD - SCANNED (05/08/2017 8:14 EST) 05/08/2017 8:14 EST Scan 2 Industrial Psychology Professor PROCEDURE/MINOR VELMA GICAL ORDERABLES * ECG REPORT - SCANNED (05/08/2017 8:14 EST) 05/08/2017 8:14 EST Scan 2 Industrial Psychology Professor PROCEDURE/MINOR VELMA GICAL ORDERABLES * ECG REPORT - SCANNED (05/08/2017 8:14 EST) 05/08/2017 8:14 EST Scan 2 Industrial Psychology Professor PROCEDURE/MINOR VELMA GICAL ORDERABLES * IMPLANT RECORD - SCANNED (05/08/2017 8:14 EST) 05/08/2017 8:14 EST Scan 2 Industrial Psychology Professor PROCEDURE/MINOR VELMA GICAL ORDERABLES * (ABNORMAL) GLUCOSE, GLUCOMETER (05/04/2017 7:41 EST) Glucose, Fingerstick 104(H) 70 - 100 mg/dl 05/04/2017 7:42 EST [facility] Law Writer ID [id number] 05/04/2017 7:42 EST [facility] Comment:Test Performed by Nu rsing Services BLOOD SPECIMEN / Unknown 05/04/2017 7:41 EST 05/04/2017 7:42 EST Houston Corey MD CHEMISTRY & BLOO D GAS ORDERABLES Performing Organization Address City/[facility]/ZIP Co de Phone Number [facility] [address] [place] [address] * CREATININE (05/03/2017 5:42 EST) Creatinine 0.67 0.66 - 1.25 mg/dl 05/03/2017 6:56 EST [facility] GFR, Calculated 100 >60 ml/min/1.7 3m2 05/03/2017 6:56 EST [facility] Comment: eGFR calculated using CKD-EPI equation for non Americans. Multiply eGFR by 1.16 for Americans. Blood specimen (specimen) BLOOD SPECIMEN / Unknown 05/03/2017 5:42 EST 05/03/2017 6:20 EST Houston Corey MD CHEMISTRY & BLOO D GAS ORDERABLES Performing Organization Address [facility]/ZIP Co de Phone Number [facility] [address] [place] [address] * (ABNORMAL) BUN (05/03/2017 5:42 EST) BUN 8(L) 10 - 26 mg/dl 05/03/2017 6:56 EST [facility] Blood specimen (specimen) BLOOD SPECIMEN / Unknown 05/03/2017 5:42 EST 05/03/2017 6:20 EST Houston Corey MD CHEMISTRY & BLOO D GAS ORDERABLES Performing Organization Address [facility] Co de Phone Number [facility] [address] [place] [address] * (ABNORMAL) ELECTROLYTES (05/03/2017 5:42 EST) Sodium 134(L) 136 - 145 mEq/L 05/03/2017 6:56 EST [facility] Potassium 4.2 3.5 - 5.0 mEq/L 05/03/2017 6:56 [facility] Chloride 99 96 - 110 mEq/L 05/03/2017 6:56 [facility] CO2 26 22 - 32 mEq/L 05/03/2017 6:56 [facility] Blood specimen (specimen) BLOOD SPECIMEN / Unknown 05/03/2017 5:42 EST 05/03/2017 6:20 EST Houston Corey MD CHEMISTRY & BLOO D GAS ORDERABLES [facility] [address] [place] [address] * (ABNORMAL) HEMAGRAM (05/03/2017 5:42 EST) WBC 7.95 4.0 - 10.4 K/cmm 05/03/2017 6:46 [facility] RBC 3.97(L) 4.36 - 5.78 M/cmm 05/03/2017 6:46 [facility] Hemoglobin 13.3(L) 13.8 - 17.3 gm/dl 05/03/2017 6:46 [facility] HCT 38.4(L) 39.5 - 50.2 % 05/03/2017 6:46 [facility] MCV 97(H) 81 - 95 fl 05/03/2017 6:46 [facility] MCH 33.5(H) 27.6 - 33.0 pg 05/03/2017 6:46 [facility] MCHC 34.6 32.8 - 36.4 gm/dl 05/03/2017 6:46 [facility] RDW-CV 11.9 <14.2 % 05/03/2017 6:46 [facility] RDW-SD 42.4 <46.0 fl 05/03/2017 6:46 [facility] PLT 196 141 - 377 K/cmm 05/03/2017 6:46 [facility] MPV 12.6 9.5 - 12.7 fl 05/03/2017 6:46 [facility] Blood specimen (specimen) BLOOD SPECIMEN / Unknown 05/03/2017 5:42 EST 05/03/2017 6:20 EST Houston Corey MD HEMATOLOGY & PF4 ORDERABLES [facility] [address] [place] [address] * EKG 12-LEAD (05/03/2017 4:23 EST) 05/03/2017 4:23 EST Narrative [facility] EKG - 05/09/2017 13:47 EST ? [facility] ? Test Date: ?2017-05-03 Pat Name: ? DAVID FARFAN ?Department: ?? [facility] [address] ? Room: ? MW514 Gender: ? M ?Drill Foreman: ?? [id number] : ?1950 ? Requested By: MARIO ALBERTO SCANLON Order Number: [id number] ? Martha OAKES: ?? SENG PERSON SA, MD ? Measurements Intervals ?Outlook ? Rate: ? 75 ? P: ?51 MT: ? 172 ?QRS: ?-77 QRSD: ? 172 [...] Seng Brody Sa, MD - 05/09/2017 [facility] Test Date: 2017-05-03 Pat Name: DAVID FARFAN Department: JAME Chao Room: [facility] Gender: M Drill Foreman: [id number] : 1950 Requested By: MARIO ALBERTO SCANLON Order Number: [id number] Reading MD: SENG ROBLEDO Measurements Intervals Outlook Rate: 75 P: 51 MT: 172 QRS: -77 QRSD: 172 T: 92 [...] Joesph Louie MD CARDIAC ECG ORDERABL ES [facility] EKG * ECG REPORT - SCANNED (05/02/2017 11:16 EST) 05/02/2017 11:1 6 EST Scan 2 Industrial Psychology Professor PROCEDURE/MINOR VELMA GICAL ORDERABLES * PORTABLE CHEST [...] 10:10 EST) 05/02/2017 10:1 0 EST Narrative [facility] EKG - 05/08/2017 8:22 EST ? [facility] ? Test Date: ?2017-05-02 Pat Name: ? DAVID FARFAN ?Department: ?? [facility] [address] ? Room: ? MW514 Gender: ? M ?Drill Foreman: ?? [id number] : ?1950 ? Requested By: SHAKIRA Martinez Order Number: [id number] ? Martha OAKES: ?? LALY BARBER MD ? Measurements Intervals ?Outlook ? Rate: ? 63 ? P: ?40 MT: ? 170 ?QRS: ?-72 QRSD: ? 180 ?T: ?86 QT: ? 492 ? QTc: ?504 ? Interpretive Statements DUAL CHAMBER PACER ELECTRONIC VENTRICULAR PACEMAKER I reviewed the tracing and have either agreed or edited the findings in this report. Electronically Signed On 05-08-17 08:22:30 EST by LALY BARBER MD. Procedure Note Laly Barber MD - 05/08/2017 [facility] Test Date: 2017-05-02 Pat Name: DAVID FARFAN Department: [place] [address] Room: [facility] Gender: M Drill Foreman: [id number] : 1950 Requested By: SHAKIRA Martinze Order Number: [id number] Martha MD: LALY BARBER MD Measurements Intervals Outlook Rate: 63 P: 40 MT: 170 QRS: -72 QRSD: 180 T: 86 QT: 492 QTc: 504 Interpretive Statements DUAL CHAMBER PACER ELECTRONIC VENTRICULAR PACEMAKER I reviewed the tracing and have either agreed or edited the findings inthis report. Electronically Signed On 05-08-17 08:22:30 EST by LALY YAO. Tony Rosenberg MD CARDIAC ECG O RDERABLES [facility] EKG * PERMANENT PACEMAKER PROCEDURE (05/02/2017 10:00 EST) Anatomical Region Laterality Modality Other 05/02/2017 10:0 0 EST Narrative 05/02/2017 11:24 EST *Cardiology* [address] [place] [address] Device Implantation Patient: David Farfan ? Study Date: ?05/02/2017 ? Accession #: ? [id number] : ? 1950 Referring: Attending: Tony Rosenberg [...] HARDWARE: Implanted device: Clifford Appiah Serial number: [id number]. LEAD PARAMETERS + + + + Lead # ? 1 ? 2 ? + + + + Chamber ? RA ? RV ? + + + + Date implanted ?? 05/02/2017 ? 05/02/2017 ? + + + + Model information [employer] ? [employer] Ingevity ? ingevity mr ? MRI ? + + + + Serial number ? [id number] ? [id number] ? + + + + Location ? [...] Note Tony Rosenberg MD - 05/02/2017 *Cardiology* [address] [place] [address] Device Implantation Patient: David Farfan Study Date: [...] device: Clifford ESTEVEZ DR - Serial number: [id number]. LEAD PARAMETERS + + + + Lead # 1 2 + + + + Chamber RA RV + + + + Date implanted 05/02/2017 05/02/2017 + + + + Model information [employer] Mathew hood mr MRI + + + + Serial number [id number] + + + + Location RA appendage [...] 0.68 0.66 - 1.25 mg/dl 05/02/2017 7:26 [facility] GFR, Calculated 100 >60 ml/min/1.7 3m2 05/02/2017 7:26 [facility] Comment: eGFR calculated using CKD-EPI equation for non Americans. Multiply eGFR by 1.16 for Americans. Blood specimen (specimen) BLOOD SPECIMEN / Unknown 05/02/2017 6:11 EST 05/02/2017 6:47 EST Houston Corey MD CHEMISTRY & BLOO D GAS ORDERABLES [facility] [address] [place] [address] * BUN (05/02/2017 6:11 EST) BUN 10 10 - 26 mg/dl 05/02/2017 7:26 [facility] Blood specimen (specimen) BLOOD SPECIMEN / Unknown 05/02/2017 6:11 EST 05/02/2017 6:47 EST Houston Corey MD CHEMISTRY & BLOO D GAS ORDERABLES Performing Organization Address [facility] Co de Phone Number [facility] [address] [place] [address] * (ABNORMAL) ELECTROLYTES (05/02/2017 6:11 EST) Sodium 135(L) 136 - 145 mEq/L 05/02/2017 7:26 [facility] Potassium 4.4 3.5 - 5.0 mEq/L 05/02/2017 7:26 [facility] Chloride 102 96 - 110 mEq/L 05/02/2017 7:26 [facility] CO2 23 22 - 32 mEq/L 05/02/2017 7:26 [facility] Blood specimen (specimen) BLOOD SPECIMEN / Unknown 05/02/2017 6:11 EST 05/02/2017 6:47 EST Houston Corey MD CHEMISTRY & BLOO D GAS ORDERABLES Performing Organization Address [facility]/ZIP Co de Phone Number [facility] [address] [place] [address] * (ABNORMAL) HEMAGRAM (05/02/2017 6:11 EST) WBC 6.92 4.0 - 10.4 K/cmm 05/02/2017 6:59 [facility] RBC 3.67(L) 4.36 - 5.78 M/cmm 05/02/2017 6:59 [facility] Hemoglobin 12.3(L) 13.8 - 17.3 gm/dl 05/02/2017 6:59 [facility] HCT 35.2(L) 39.5 - 50.2 % 05/02/2017 6:59 [facility] MCV 96(H) 81 - 95 fl 05/02/2017 6:59 [facility] MCH 33.5(H) 27.6 - 33.0 pg 05/02/2017 6:59 EST [facility] MCHC 34.9 32.8 - 36.4 gm/dl 05/02/2017 6:59 EST [facility] RDW-CV 11.9 <14.2 % 05/02/2017 6:59 [facility] RDW-SD 41.1 <46.0 fl 05/02/2017 6:59 EST [facility] PLT 185 141 - 377 K/cmm 05/02/2017 6:59 [facility] MPV 12.9(H) 9.5 - 12.7 fl 05/02/2017 6:59 EST [facility] Blood specimen (specimen) BLOOD SPECIMEN / Unknown 05/02/2017 6:11 EST 05/02/2017 6:47 EST Houston Croey MD HEMATOLOGY & PF4 ORDERABLES Performing Organization Address City/[facility] Co de Phone Number [facility] [address] [place] [address] * (ABNORMAL) TROPONIN I (05/01/2017 7:52 EST) Troponin I (ng/mL) 0.035(H) <0.034 ng/ml 05/01/2017 9:10 EST [facility] Blood specimen (specimen) BLOOD SPECIMEN / Unknown 05/01/2017 7:52 EST 05/01/2017 8:19 EST Amelia Partida DO CHEMISTRY & BLOOD GAS ORDERABLES Performing Organization Address City/[facility]/ZIP Co de Phone Number [facility] [address] [place] [address] * MAGNESIUM (05/01/2017 6:01 EST) Magnesium 2.1 1.7 - 2.8 mg/dl 05/01/2017 6:46 EST [facility] Blood specimen (specimen) BLOOD SPECIMEN / Unknown 05/01/2017 6:01 EST 05/01/2017 6:15 EST Amelia Partida DO CHEMISTRY & BLOOD GAS ORDERABLES Performing Organization Address [facility] Co de Phone Number [facility] [address] [place] [address] * CREATININE (05/01/2017 6:01 EST) Creatinine 0.67 0.66 - 1.25 mg/dl 05/01/2017 6:46 [facility] GFR, Calculated 100 >60 ml/min/1.7 3m2 05/01/2017 6:46 [facility] Comment: eGFR calculated using CKD-EPI equation for non Americans. Multiply eGFR by 1.16 for Americans. Blood specimen (specimen) BLOOD SPECIMEN / Unknown 05/01/2017 6:01 EST 05/01/2017 6:15 EST Houston Corey MD CHEMISTRY & BLOO D GAS ORDERABLES Performing Organization Address [facility] Co de Phone Number [facility] [address] [place] [address] * (ABNORMAL) BUN (05/01/2017 6:01 EST) BUN 6(L) 10 - 26 mg/dl 05/01/2017 6:46 [facility] Blood specimen (specimen) BLOOD SPECIMEN / Unknown 05/01/2017 6:01 EST 05/01/2017 6:15 EST Houston Corey MD CHEMISTRY & BLOO D GAS ORDERABLES Performing Organization Address [facility] Co de Phone Number [facility] [address] [place] [address] * (ABNORMAL) ELECTROLYTES (05/01/2017 6:01 EST) Sodium 134(L) 136 - 145 mEq/L 05/01/2017 6:46 [facility] Potassium 4.5 3.5 - 5.0 mEq/L 05/01/2017 6:46 [facility] Chloride 101 96 - 110 mEq/L 05/01/2017 6:46 [facility] CO2 23 22 - 32 mEq/L 05/01/2017 6:46 [facility] Blood specimen (specimen) BLOOD SPECIMEN / Unknown 05/01/2017 6:01 EST 05/01/2017 6:15 EST Houston Corey MD CHEMISTRY & BLOO D GAS ORDERABLES [facility] [address] [place] [address] * (ABNORMAL) HEMAGRAM (05/01/2017 6:01 EST) WBC 7.09 4.0 - 10.4 K/cmm 05/01/2017 6:27 [facility] RBC 3.76(L) 4.36 - 5.78 M/cmm 05/01/2017 6:27 [facility] Hemoglobin 12.7(L) 13.8 - 17.3 gm/dl 05/01/2017 6:27 [facility] HCT 36.4(L) 39.5 - 50.2 % 05/01/2017 6:27 [facility] MCV 97(H) 81 - 95 fl 05/01/2017 6:27 [facility] MCH 33.8(H) 27.6 - 33.0 pg 05/01/2017 6:27 [facility] MCHC 34.9 32.8 - 36.4 gm/dl 05/01/2017 6:27 [facility] RDW-CV 11.9 <14.2 % 05/01/2017 6:27 [facility] RDW-SD 42.1 <46.0 fl 05/01/2017 6:27 [facility] PLT 205 141 - 377 K/cmm 05/01/2017 6:27 [facility] MPV 12.8(H) 9.5 - 12.7 fl 05/01/2017 6:27 [facility] Blood specimen (specimen) BLOOD SPECIMEN / Unknown 05/01/2017 6:01 EST 05/01/2017 6:15 EST Houston Corey MD HEMATOLOGY & PF4 ORDERABLES Performing Organization Address [facility] Co de Phone Number [facility] [address] [place] [address] * LIPID PROFILE (INCLUDES CHOLESTEROL, TRIGLYCERIDES, HDL, LDL) (05/01/2017 6:01 EST) Cholesterol 148 mg/dl 05/01/2017 6:46 [facility] Comment: Desirable:<200 Borderline High:200-239 High:>xa=850 Triglycerides 65 mg/dl 05/01/2017 6:46 [facility] Comment: Normal:<150 Borderline High:150-199 High:200-499 Very High:>ii=710 HDL 39 mg/dl 05/01/2017 6:46 [facility] Comment: Low:<40 Normal:40-60 Desirable: >60 LDL, Calculated 96 mg/dl 8 6:46 [facility] Comment: Optimal:<100 Near Optimal:100-129 Borderline High:130-159 High:160-189 Very High:>wq=214 Chol/HDL Ratio 3.8 05/01/2017 6:46 [facility] Fasting? Unknown 05/01/2017 6:46 [facility] Non HDL Cholesterol 109 mg/dl 05/01/2017 6:46 [facility] Comment: Desirable:<130 Borderline:130-159 High: 160-189 Very High: >yl=244 Blood specimen (specimen) BLOOD SPECIMEN / Unknown 05/01/2017 6:01 EST 05/01/2017 6:15 EST Houston Corey MD CHEMISTRY & BLOO D GAS ORDERABLES Performing Organization Address City/[facility]/ZIP Co de Phone Number [facility] [address] [place] [address] * (ABNORMAL) TROPONIN I (05/01/2017 0:20 EST) Troponin I (ng/mL) 0.055(H) <0.034 ng/ml 05/01/2017 1:01 [facility] Blood specimen (specimen) BLOOD SPECIMEN / Unknown 05/01/2017 0:20 EST 05/01/2017 0:24 EST Amelia Partida DO CHEMISTRY & BLOOD GAS ORDERABLES Performing Organization Address [facility] Co de Phone Number [facility] [address] [place] [address] * HEMOGLOBIN A1C (05/01/2017 0:20 EST) Hemoglobin A1C 5.7 % 05/01/2017 10:05 [facility] Comment: Reference Range: <5.7% Normal 5.7-6.4% Prediabetes =>6.5% Diagnostic for diabetes (if confirmed) Goals for glycemic control in diabetes ADA 2017 For non adults with diabetes: ?? Target <7.5% For children and adolescents with type 1 diabetes: ?? Target <7.0% More or less stringent targets may be appropriate for individual patients. Est Avg Glucose 117 mg/dl 8 10:05 [facility] Comment: eAG represents the A1c result expressed as average glucose in mg/dl. Blood specimen (specimen) BLOOD SPECIMEN / Unknown 05/01/2017 0:20 EST 05/01/2017 0:24 EST Houston Corey MD CHEMISTRY & BLOO D GAS ORDERABLES Performing Organization Address [facility] Co de Phone Number [facility] [address] [place] [address] * (ABNORMAL) PROTIME (04/30/2017 19:33 EST) Pro Time 15.1(H) 10.3 - 13.4 secs 04/30/2017 20:08 [facility] Comment:NOTE NEW REFERENCE Vern FUNG OF APR 03 2017 I.N.R. 1.3(H) 0.9 - 1.1 Ratio 04/30/2017 20:08 [facility] Comment: Moderate Intensity Coumadin INR = 2.0-3.0 Adjustments in anticoagulant therapy dose should be based upon the INR and NOT the Pro Time. Blood specimen (specimen) BLOOD SPECIMEN / Unknown 04/30/2017 19:33 EST 04/30/2017 19:47 EST Houston Corey MD HEMATOLOGY & PF4 ORDERABLES Performing Organization Address City/[facility]/ZIP Co de Phone Number [facility] [address] [place] [address] * ED/URGENT CARE ADD-ON (04/30/2017 18:20 EST) Tests to be added LYME AB, 04/30/2017 18:16 EST [facility] Comment:TSH Number for problems [id number] (ED) 04/30/2017 18:16 EST [facility] TOPOGRAPHY UNKNOWN / Unknown 04/30/2017 18:20 EST 04/30/2017 18:23 EST Amelia Partida DO HEMATOLOGY & PF4 ORDERABLES Performing Organization Address City/[facility] Co de Phone Number [facility] [address] [place] [address] * OUTSIDE IMAGES ??? ECHO IMAGES (04/30/2017 17:24 EST) Anatomical Region Laterality Modality Other 04/30/2017 17:2 4 EST Narrative 04/30/2017 17:24 EST This is an outside study - there is no report. Procedure Note OUTREACH ANALYST, IMAGING - 04/30/2017 This is an outside study - there is no report. Provider Unknown IMG OTHER IMAGING OR DERABLES * EKG 12-LEAD (04/30/2017 16:43 EST) 04/30/2017 16:4 3 EST Narrative [facility] EKG - 05/02/2017 11:12 EST ?[facility] Emergency ? Test Date: ?2017-04-30 Pat Name: ? DAVID FARFAN ?Department: ?? ED ? Room: ? AC12 Gender: ? M ?Drill Foreman: ?? [id number] : ?[id number] ? Requested By: DONNA HOOK L Order Number: [id number] ? Reading MD: ?? ANA LOBEL MD ? Measurements Intervals ?Outlook ? Rate: ? 33 ? P: ? MT: ? 0 ?QRS: ?15 QRSD: ? 110 [...] Ana Marsh MD - 05/02/2017 [facility] Emergency Test Date: 2017-04-30 Pat Name: DAVID FARFAN Department: ED Room: [facility] Gender: M Drill Foreman: [id number] : 1950 Requested By: DONNA Cabral Order Number: [id number] Reading MD: ANA MARSH MD Measurements Intervals Outlook Rate: 33 P: MT: 0 QRS: 15 QRSD: 110 T: 42 [...] Bridget Fields MD CARDIAC ECG ORDERAB LES [facility] EKG * TSH (04/30/2017 16:40 EST) TSH 1.34 0.47 - 4.68 uIU/ml 04/30/2017 19:24 [facility] BLOOD SPECIMEN / Unknown 04/30/2017 16:40 EST 04/30/2017 16:52 EST Bridget Fields MD CHEMISTRY & BLOOD G ORDERABLES [facility] [address] [place] [address] * LYME AB (04/30/2017 16:40 EST) Lyme AB Negative 05/01/2017 11:39 [facility] Comment:Reference Range: Neg ative BLOOD SPECIMEN / Unknown 04/30/2017 16:40 EST 04/30/2017 16:52 EST Bridget Fields MD IMMUNOLOGY AND SERO LOGY ORDERABLES Performing Organization Address [facility] Co de Phone Number [facility] [address] [place] [address] * (ABNORMAL) PROFILE ED CARDIAC PACK (04/30/2017 16:40 EST) Sodium 134(L) 136 - 145 mEq/L 04/30/2017 17:16 [facility] Potassium 4.2 3.5 - 5.0 mEq/L 04/30/2017 17:16 [facility] Chloride 105 96 - 110 mEq/L 04/30/2017 17:16 [facility] CO2 20(L) 22 - 32 mEq/L 04/30/2017 17:16 [facility] BUN 6(L) 10 - 26 mg/dl 04/30/2017 17:16 [facility] Creatinine 0.61(L) 0.66 - 1.25 mg/dl 04/30/2017 17:16 [facility] GFR, Calculated 104 >60 ml/min/1 .73m2 04/30/2017 17:16 [facility] Comment: eGFR calculated using CKD-EPI equation for non Americans. Multiply eGFR by 1.16 for Americans. Magnesium 1.7 1.7 - 2.8 mg/dl 04/30/2017 17:16 [facility] WBC 7.78 4.0 - 10.4 K/cmm 04/30/2017 17:12 [facility] RBC 3.72(L) 4.36 - 5.78 M/cmm 04/30/2017 17:12 [facility] Hemoglobin 12.6(L) 13.8 - 17.3 gm/dl 04/30/2017 17:12 [facility] HCT 35.7(L) 39.5 - 50.2 % 04/30/2017 17:12 [facility] MCV 96(H) 81 - 95 fl 04/30/2017 17:12 [facility] MCH 33.9(H) 27.6 - 33.0 pg 04/30/2017 17:12 [facility] MCHC 35.3 32.8 - 36.4 gm/dl 04/30/2017 17:12 [facility] RDW-CV 11.9 <14.2 % 04/30/2017 17:12 [facility] RDW-SD 41.5 <46.0 fl 04/30/2017 17:12 [facility] PLT 197 141 - 377 K/cmm 04/30/2017 17:12 [facility] MPV 12.5 9.5 - 12.7 fl 04/30/2017 17:12 [facility] % Neutrophils 62.1 % 04/30/2017 17:12 [facility] % Lymphocytes 23.9 % 04/30/2017 17:12 [facility] % Monocytes 11.6 % 04/30/2017 17:12 [facility] % Eosinophils 1.2 % 04/30/2017 17:12 [facility] % Basophils 0.9 % 04/30/2017 17:12 [facility] % Immature Grans 0.3 % 04/30/2017 17:12 [facility] ABS Neutrophils 4.84 2.20 - 8.85 K/cmm 04/30/2017 17:12 [facility] ABS Lymphs 1.86 1.09 - 3.30 K/cmm 04/30/2017 17:12 [facility] ABS Monocytes 0.90(H) 0.1 - 0.8 K/cmm 04/30/2017 17:12 [facility] ABS Eosinophils 0.09 0.03 - 0.61 K/cm 04/30/2017 17:12 [facility] ABS Basophils 0.07 0.01 - 0.11 K/cm 04/30/2017 17:12 [facility] ABS Immature Grans 0.02 0 - 0.06 K/cm 04/30/2017 17:12 [facility] Type of Diff: Automated 04/30/2017 17:12 [facility] Troponin I (ng/mL) 0.040(H) <0.034 ng/ml 04/30/2017 17:29 [facility] Glucose, Screening 100 70 - 100 mg/dl 04/30/2017 17:16 [facility] Hold Blue Top Sample for coagulation will be discarded after 4 hours 04/30/2017 17:04 [facility] Blood specimen (specimen) BLOOD SPECIMEN / Unknown 04/30/2017 16:40 EST 04/30/2017 16:52 EST Bridget Fields MD PACKAGES & DNA PROB E ORDERABLES Performing Organization Address City/State/[facility] Co de Phone Number [facility] [address] [place] [address] documented in this encounter Visit Diagnoses Diagnosis [...] 04/201705/01/2017 documented in this encounter Care Teams Night Club Manager Relationship Specialty Start Date End Date None, Provider PCP - General 04/30/17 05/01/17 Katia Stone, PABijalC [address] [place] [phone] PCP - General 05/02/17 documented as of this encounter
--- OUTSIDE RECORDS SUMMARY | 2023-12-24 18:45 | XMS_ITS | Encounter Summary ---
Author Organization [facility] Address [address] [place] [address] Care Team Providers Care Muskrat Trapper Name Role Phone Katia Stone PA-C Primary Care Provider [phone] Encounter Details Date Type Department Care Team (Late st Contact Info) Description 05/20/2017 Results Only Imaging [facility] [phone] Unknown, Provider, Social History Tobacco Use Types [...] on filedocumented in this encounter Care Teams Muskrat Trapper Relationship Specialty Start Date End Date Katia Stone PA-C [address] [place] [phone] PCP - General 05/02/17 documented as of this encounter
--- OUTSIDE RECORDS SUMMARY | 2023-12-24 18:45 | XMS_ITS | Encounter Summary ---
Author Organization [facility] Address [address] [place] [address] Care Team Providers Care Web Knitter Name Role Phone Katia Stone PA-C Primary Care Provider [phone]- [phone] Encounter Details Date Type Department Care Team (Late st Contact Info) Description 05/20/2017 Results Only Imaging [facility] [phone] Unknown, Provider, Social History Tobacco Use Types [...] filedocumented in this encounter Care Teams Web Knitter Relationship Specialty Start Date End Date Katia Stone PA-C [address] [place] [phone] PCP - General 05/02/17 documented as of this encounter
--- OUTSIDE RECORDS SUMMARY | 2023-12-24 18:45 | XMS_ITS | Encounter Summary ---
Author Organization [facility] Address [facility] [place] [address] Care Team Providers Care Service Desk Associate Name Role Phone Katia Stone Primary Care Provider Encounter Details Date Type Department Care Team (Late st Contact Info) Description 12/15/2023 10:20 PM EDT Ancillary Procedure Radiology Library at [facility] [place] [address] Jack Gutierrez MD [address] [place] [address] [address] [place], [place] [id number] Social History Tobacco Use Types Packs/Day Years Used Date Smoking Tobacco: Never Smokeless Tobacco: Never Alcohol Use Standard Drinks/Week Comments Yes 14 (1 standard drink = 0.6 oz pu re alcohol) [facility] Inpatient Questions Answer Date Recorded Does [...] AM EST Hospital Encounter Non-Invasive Cardiology Lab [facility] [place] [address] Arrived documented as of this encounter Procedures [...] FILM LIBRARY O RDERABLES Performing Organization Address City/State/[facility] Co de Phone Number [place], [place] documented in this encounter Visit Diagnoses Not on filedocumented in this encounter Care Teams Service Desk Associate Relationship Specialty Start Date End Date Katia Stone PA [address] [facility] [place] [facility] [place] [phone] PCP - General General Internal Medicine 11/10/18 documented as of this encounter
--- OUTSIDE RECORDS SUMMARY | 2023-12-24 18:45 | XMS_ITS | Encounter Summary ---
[place] [address] Care Team Providers Care Spot Welder Name Role Phone Katia Stone Primary Care Provider [phone] Encounter Details Date Type Department Care Team (Late st Contact Info) Description 12/16/2023 1:30 PM EDT Telehealth notes [place] [address] Telehealth, Neurology None Social History Tobacco Use [...] AM EST Hospital Encounter Non[place] [address] Arrived documented as of this encounter Visit Diagnoses Not on filedocumented in this encounter Care Teams Spot Welder Relationship Specialty Start Date End Date Katia Stone PA [address] [place] [phone] PCP - General General Internal Medicine 11/10/18 documented as of this encounter
--- OUTSIDE RECORDS SUMMARY | 2023-12-24 18:45 | XMS_ITS | Encounter Summary ---
Author Organization [facility] Address [facility] [place] [address] Care Team Providers Care Capping Machine Operator Name Role Phone Katia Stone Primary Care Provider [phone] Encounter Details Date Type Department Care Team (Late st Contact Info) Description 12/15/2023 10:15 PM EDT Ancillary Procedure Radiology Library at [facility] [place] [address] Jack Gutierrez MD [address] [place] [address] [address] [place], [place] [id number] Social History Tobacco Use Types Packs/Day Years Used Date Smoking Tobacco: Never Smokeless Tobacco: Never Alcohol Use Standard Drinks/Week Comments Yes 14 (1 standard drink = 0.6 oz pu re alcohol) [facility] Inpatient Questions Answer Date Recorded Does [...] Hospital Encounter Non-Invasive Cardiology Lab [facility] [place] [address] Arrived documented as of this encounter Procedures [...] Gutierrez MD IMG FILM LIBRARY O RDERABLES [place], [place] documented in this encounter Visit Diagnoses Not on filedocumented in this encounter Care Teams Capping Machine Operator Relationship Specialty Start Date End Date Katia Stone PA [address] [place] [phone] PCP - General General Internal Medicine 11/10/18 documented as of this encounter
--- OUTSIDE RECORDS SUMMARY | 2023-12-24 18:45 | XMS_ITS | Continuity of Care Document ---
Author Organization [facility] Address [address] [place] [address] Care Team Providers Care Caster Operator Name Role Phone FatigMonalisa Ovalles Primary Care Physician [phone] Encounter [facility] [id number] Date(s): 11/24/23 - 11/24/23 [facility] [address] [place] [address] Discharge Disposition: Home Medications albuterol 90 mcg/inh aerosol inhaler 2 puffs, Inhale, every 6 hr, PRN as needed for wheezing, # 6.7 g, 0 Refill(s) Start Date: 11/19/23 Status: Ordered Beer Beer, 0 Refill(s) Start Date: 11/19/23 Status: Ordered benzonatate 100 mg oral capsule 100 mg = 1 cap, Oral, BID, 0 Refill(s) Start Date: 11/19/23 Status: Ordered calcium carbonate 1000 mg oral tablet, chewable 1,000 mg 1 tab, Chewed, BID, PRN as needed for dyspepsia, PRN, 0 Refill(s) Start Date: 11/19/23 Status: Ordered colestipol 1 g oral tablet 2 g = 2 tab, Oral, BID, with a full glass of water, # 120 tab, 0 Refill(s) Start Date: 11/19/23 Status: Ordered fentaNYL 12 mcg/hr transdermal film, extended release 1 patches, Transdermal, every 72 hr, apply to skin, 0 Refill(s) Start Date: 11/19/23 Status: Ordered fluticasone 50 mcg/inh nasal spray 1 sprays, Nostril-Both, BID, 0 Refill(s) Start Date: 11/19/23 Status: Ordered fluticasone-vilanterol 200 mcg-25 mcg/inh inhalation powder 1 puffs, Inhale, Daily, 0 Refill(s) Start Date: 11/19/23 Status: Ordered ibuprofen 200 mg oral capsule 400 mg = 2 cap, Oral, every 4 hr, PRN as needed for pain, # 120 cap, 0 Refill(s) Start Date: 11/19/23 Status: Ordered ipratropium-albuterol 0.5 mg-2.5 mg/3 mL inhalation solution 3 mL, Nebulized Inhalation, QID, # 30 EA, 0 Refill(s) Start Date: 11/19/23 Status: Ordered ipratropium-albuterol 0.5 mg-2.5 mg/3 mL inhalation solution 3 mL, Nebulized Inhalation, QID, # 30 EA, 0 Refill(s) Start Date: 11/19/23 Status: Ordered loratadine 10 mg oral capsule 10 mg = 1 cap, Oral, Daily, # 10 cap, 0 Refill(s) Start Date: 11/19/23 Status: Ordered magnesium gluconate 500 mg oral tablet 500 mg = 1 tab, Oral, Daily, 0 Refill(s) Start Date: 11/19/23 Status: Ordered melatonin 3 mg oral tablet 3 mg = 1 tab, Oral, every night at bedtime, PRN as needed for insomnia, # 60 tab, 0 Refill(s) Start Date: 11/19/23 Status: Ordered memantine 5 mg oral tablet 5 mg = 1 tab, Oral, BID, # 60 tab, 0 Refill(s) Start Date: 11/19/23 Status: Ordered metoprolol succinate 200 mg oral capsule, extended release 200 mg = 1 cap, Oral, Daily, # 30 cap, 0 Refill(s) Start Date: 11/19/23 Status: Ordered MiraLax oral powder for reconstitution 17 g, Oral, Daily, dissolve in 4 to 8 oz of beverage PRN, # 238 g, 0 Refill(s) Start Date: 11/19/23 Status: Ordered pantoprazole 40 mg oral delayed release tablet 40 mg = 1 tab, Oral, Daily, # 30 tab, 0 Refill(s) Start Date: 11/19/23 Status: Ordered senna (sennosides) 12 mg oral tablet See Instructions, PRN as needed for constipation, 0 Refill(s) Start Date: 11/19/23 Status: Ordered sertraline 25 mg oral tablet 50 mg = 2 tab, Oral, Daily, # 30 tab, 0 Refill(s) Start Date: 11/19/23 Status: Ordered spironolactone 25 mg oral tablet 25 mg = 1 tab, Oral, Daily, # 30 tab, 0 Refill(s) Start Date: 11/19/23 Status: Ordered Trelegy Ellipta 200 mcg-62.5 mcg-25 mcg/inh inhalation powder 0 Refill(s) Start Date: 11/19/23 Status: Ordered Tussin 100 mg/5 mL oral liquid prn, 0 Refill(s) Start Date: 11/19/23 Status: Ordered Tylenol Extra Strength 500 mg oral tablet 1,000 mg = 2 tab, Oral, Daily, 0 Refill(s) Start Date: 11/19/23 Status: Ordered Vitamin B Complex oral tablet 1 tab, Oral, Daily, # 100 tab, 0 Refill(s) Start Date: 11/19/23 Status: Ordered Problem List Condition Confirmation Course Effective Dates Status H ealt Status Informant Cutaneous abscess Confirmed Active Acute bronchiolitis due to respiratory syncytial virus (RSV) Confirmed Active Acute cholecystitis Confirmed Active Alcohol abuse Confirmed Active Alcoholic liver disease Confirmed Active Allergic rhinitis Confirmed Active Acute weakness Confirmed Active Atopic dermatitis Confirmed Active 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 Vitamin B12 deficiency Confirmed Active Atrioventricular block, complete Confirmed Active Constipation Confirmed Active Acute cough Confirmed Active Disorder of lung Confirmed Active Essential hypertension Confirmed Active GERD without esophagitis Confirmed Active Personal history of respiratory system disease Confirmed Active Heart failure Confirmed Active Hypomagnesemia Confirmed Active Sacroiliitis, not elsewhere classified Confirmed Active Insomnia Confirmed Active Pain in joint Confirmed Active Muscle weakness Confirmed Active Obesity Confirmed Active Osteoarthritis of knee Confirmed Active Pain Confirmed Active Flatulence Confirmed Active Encounter for administration of vaccine Confirmed Active Encounter for prophylactic measures, unspecified Confirmed Active Pleural effusion, not elsewhere classified Confirmed Active Bilateral primary osteoarthritis of knee Confirmed Active Major depressive disorder, recurrent Confirmed Active Rhinophyma Confirmed Active Sebaceous cyst Confirmed Active Systolic heart failure Confirmed Active Vascular dementia, unspecified severity, without behavioral disturbance, psychotic disturbance, mood disturbance, and anxiety Confirmed Active Patient Care team information Care Team Personnel Name: Monalisa Montejo MD Position: PowerChart View Only Member Role: Primary Care Physician Address: [address] Insurance Providers Guarantor name: Health Plan Information #: 1 Payer: MEDICARE B [employer] Member Number: NA Policy Number: NA Health Plan Information #: 2 Payer: [employer] Member Number: NA Policy Number: NA
--- OUTSIDE RECORDS SUMMARY | 2023-12-24 18:45 | XMS_ITS | Encounter Summary ---
Author Organization [facility] Address [address] [place] [address] Care Team Providers Care Pad Assembler Name Role Phone Katia Stone PA-C Primary Care Provider [phone]- [phone] Reason for Referral * Follow Up (3 - 10 Business Days) - New Request Specialty Diagnoses / Procedures Referred By Contac t Referred To Contact Diagnoses Hyponatremia Pericardial effusion Heart block Acute on chronic diastolic congestive heart failure (HCC-CMS) Acute pericarditis, unspecified type Vini Mathis MD [address] [place] [phone] Katia Stone PA-C [facility] [address] [place] [address] Referral ID Status Reason Start Date Expiration Date Visits Requested Visits Authorized [id number] New Request Continuity of Care 05/27/2017 1 1 Question Answer Reason for Request: post hosp f/u visit Reason for Visit * Reason Comments Chest Pain Patient arrives as [place] pan from [facility] for pleuritic chest pain and new diagnosis CHF after pacemaker placement at [facility] two weeks ago. Dyspnea with exertion, breath sounds course crackles. Alert and oriented. Encounter Details Date Type Department Care Team (Late st Contact Info) Description 05/20/2017 23:34 EDT - 05/27/2017 14:50 EDT Hospital Encounter [facility] Cardiac/Telemetry Unit [address] [place] [address] Laly Kim MD [address] [phone] Akash Reyes MD [address] [place] [phone] Anders Luis MD [address] [place] [phone] Tony Rosenberg MD [address] [place] [phone] Seng Brody Sa, MD [address] [place] [phone] Hyponatremia (Primary Dx); Pericardial effusion; Heart block; [...] on chronic diastolic congestive heart failure ([facility]-HCC) 05/01/2017 05/27/2017 Hospital Course David Mera [...] amlodipine and chlorthalidone. ?? He presented to [facility] ED 05/20 with orthopnea and cough, and CT chest showed pericardial effusion. He was transferred to [facility] ED for pericardiocentesis. In the ED [...] Component Value Units Date/Time Respiratory Virus Detection [[id number]] Collected: 05/26/17 1157 Lab Status: Preliminary result Specimen: Nasopharynx Updated: 05/27/17 1425 Result No RSV, Influenza A, or Influenza B detected by PCR Result No Metapneumovirus detected by PCR. Result Delay in some virus(es) result(s), testing being repeated and/or confirmed. Anaerobe Culture/Smear (inc. aerobes), Fluid [[id number]] Collected: 05/23/17 0747 Lab Status: Preliminary result Specimen: FOSMIC from Pericardial Fluid Updated: 05/25/17 1146 Gram Smear Result Few Polys No bacteria seen Result No growth Fungus Culture/Smear, Other [[id number]] Collected: 05/23/17 0747 Lab Status: Preliminary result [...] Follow Up Appointments Scheduled with [facility] Upcoming Appointments Jun 04, 2017 16:00 EDT Post Hospital Visit with Tony Rosenberg MD [facility] Cardiology [facility] (--) [address] [id number] Appointments Outside of [facility] We Will Schedule Follow-up appointments and procedures Amb Consult/Follow Up Primary Care Physician Reason for Request: post hosp f/u visit Authorizing Provider: Vini Mathis MD Additional Information: Cardiology follow up FriJune 04, 2017 at [address] Justin Rosenberg at the [facility]. You should be notified of appointment time. If you do not head by FriJune 01, please call [phone] to find out the time. Cardiology follow up on June 16, 2017 at 2:[address] Torres at the [facility] haspreviously scheduled. Clinic number [id number] Studies We Will Schedule Follow-up labs and [...] Vini Mathis MD Internal Medicine PGY-1 Pager: [phone] 05/27/2017 20:52 Associated attestation - Seng Brody Sa, MD - 05/30/2017 1206 EDT Attending Attestation: I saw and evaluated the patient 05/27. I discussed the case with the resident/ETCHER ENAMELING/fellow and agree with the findings and plan as documented above. Seng person Sa, MD Cardiac Electrophysiology documented in this encounter Discharge Instructions * Appointments* Coleen Yañez NP - 05/27/2017 10:25 EDT Cardiology follow up FriJune 04, 2017 at [address] Justin Rosenberg at the [facility]. You should be notified of appointment time. If you do not head by FriJune 01, please call [phone] to find out the time. Cardiology follow up on June 16, 2017 at 2:[address] Torres at the [facility] haspreviously scheduled. Clinic number [phone] * Discharge Instr - Other Orders* Melida [...] knees MSK: Normal bulk and tone. 5/5 workforce management consultant strength SKIN: No lesions, bruises, or rashes [...] initially hypertensive, but now normo-hypotensive. - Holding TALENT ASSISTANT lisinopril ?? Chronic diastolic heart failure: Volume [...] 05/26/17. I discussed the case with the resident/ETCHER ENAMELING/fellow and agree with the findings and plan [...] knees MSK: Normal bulk and tone. 5/5 workforce management consultant strength SKIN: No lesions, bruises, or rashes [...] initially hypertensive, but now normo-hypotensive. - Holding TALENT ASSISTANT lisinopril ?? Chronic diastolic heart failure: currently [...] knees MSK: Normal bulk and tone. 5/5 workforce management consultant strength SKIN: No lesions, bruises, or rashes [...] initially hypertensive, but now normo-hypotensive. - Holding TALENT ASSISTANT lisinopril ?? Chronic diastolic heart failure: currently [...] Landry M.D., PGY-1 Internal Medicine Resident Pager [phone] 05/24/2017 10:04 Attestation statement: Supervising Physician I [...] knees MSK: Normal bulk and tone. 5/5 workforce management consultant strength SKIN: No lesions, bruises, or rashes [...] initially hypertensive, but now normo-hypotensive. - Holding TALENT ASSISTANT lisinopril ?? Chronic diastolic heart failure: currently [...] Landry M.D., PGY-1 Internal Medicine Resident Pager [phone] 05/23/2017 9:11 Attestation statement: Supervising Physician. I [...] knees MSK: Normal bulk and tone. 5/5 workforce management consultant strength SKIN: No lesions, bruises, or rashes [...] initially hypertensive, but now normo-hypotensive. - Holding TALENT ASSISTANT lisinopril ?? Chronic diastolic heart failure: currently [...] Landry M.D., PGY-1 Internal Medicine Resident Pager [phone] 05/22/2017 8:50 Attestation statement: I saw and [...] previous copy on file @ [facility] DIRECTIVES FOR FINANCES: TRANSPORTATION: Transportation: Family CULTURAL, LUTHERAN and/or LANGUAGE factors affecting health care/discharge planning: [...] AID - [address] - [place], [place] - [address] [facility] [phone] [facility] ([facility]) - [facility] [place] - [address] [facility] [address] [facility] [address] Home Health: Other: POST HOSPITAL TRANSITION PLAN: Plan d/c to his son, Catarina, house in [place] Desi Villatoro RN 05/21/2017 13:12 * Desi Villatoro RN - 05/21/2017 0972 EDT 05/21: Met with patient. Dr. Rosenberg is at the bedside. Plan will be pericardiocentesis and reposition of pacer lead. I will follow up with patient later today. Desi Villatoro RN [facility] #[id number] * Jayne Landry MD - 05/21/2017 0738 EDT Cardiology Progress note Service Date: 05/21/2017 [...] knees MSK: Normal bulk and tone. 5/5 workforce management consultant strength SKIN: No lesions, bruises, or rashes [...] will hold lisinopril for now. - Holding TALENT ASSISTANT lisinopril ?? Chronic diastolic heart failure: currently volume overloaded. Needs diuresis after resolution of pericardial effusion. - Holding Lasix/chlorthalidone in setting of pericardial effusion - Strict I&O - 1.2 L fluid restriction as above - Daily weights - Daily BUN, Cr VTE Prophylaxis Held pending pericardiocentesis Discharge Plan Uncertain at this time Jayne Landry M.D., PGY-1 Internal Medicine Resident Pager [phone] 05/21/2017 8:01 * Ester Yanes MD - 05/21/2017 0687 EDT PATIENT CONSENT TO CARDIOVASCULAR CATHETERIZATION OR [...] aft er the procedure. Ester Yanes MD Counter Tacker PGY-5 05/20/2017 23:30 documented in this encounter [...] smoker, 1-2 beers 1-2x/week, lives alone in [place] Allergies: Reviewed No Known Allergies Exam: General [...] will hold lisinopril for now. - Holding TALENT ASSISTANT lisinopril Chronic diastolic heart failure: with some [...] outpatient, avoid thiazide diuretics Vladimir Crowe MD [facility] [place] [employer] Installer of Transplant Programs 05/25/2017 11:46 * Vladimir [...] the assessment and plan. Vladimir Crowe MD [facility] [employer] Installer of Transplant Programs 05/24/2017 12:32 * Elliot [...] TIME. PT IN ER ROOM 8, ON SENIOR GRANT WRITER, NIBP, AND SPO2, ASSESSMENT NOTED, * Tony [...] CHF after pacemaker placement at [facility] two weeks ago. Dyspnea with exertion, breath sounds course crackles. Alert and oriented. HPI HPI Comments: I, Deana Bingham, am scribing for Laly Kim, * while he/she is personallyperforming the service. Deana Bingham 05/20/2017 22:25 David Mera is a 66 y.o. male with a history of heart block AV third degree, HTN, acute on chronic CHF, who presents as a transfer from [place] with pericardial effusion. Pt had pacemaker placed [...] appears to be a good tracing. Attending accounts collector not available for acute interpretation. Radiology orders: [...] for problems Not Given Final Accession number [id number] Final CREATININE, URINE RANDOM SODIUM, URINE RANDOM [...] bolus. Evaluated in the ED by the usability strategist. ASSESSMENT AND PLAN Final diagnoses: Hyponatremia Pericardial effusion DISPOSITION: Admitted Discussed case with cardiology resident/fellow (). Not evaluated by admitting attending in ED. Admitted to telemetry for further evaluation and definitive management. Condition on admission: Serious.Pain level at time of admission: 0 (). PCP: Katia Mccallum [facility] Number of Diagnoses or Management Options Hyponatremia: [...] Care - Sigrid Gordon RN - 05/25/2017 0516 EDT Problem: Daily Care Plan Goals Goal: [...] Care - Cici Tapia RN - 05/24/2017 8529 EDT Problem: Daily Care Plan Goals Goal: [...] SOB and pleuritic chest pain. Transferred from [facility]. Dx of peridcardial effusion, HTN, [...] on chronic diastolic congestive heart failure (CMS-HCC) ([facility]) Acute pericarditis, unspecified type Ordered: 05/27/2017 [...] 8:40 EDT) 06/02/2017 8:40 EDT Scan 2 License Distributor PROCEDURE/MINOR VELMA GICAL ORDERABLES * ECG REPORT - SCANNED (06/01/2017 12:46 EDT) 06/01/2017 12:4 6 EDT Scan 2 License Distributor PROCEDURE/MINOR VELMA GICAL ORDERABLES * ECG REPORT - SCANNED (05/30/2017 11:59 EDT) 05/30/2017 11:5 9 EDT Scan 2 License Distributor PROCEDURE/MINOR VELMA GICAL ORDERABLES * ECG REPORT - SCANNED (05/30/2017 11:17 EDT) 05/30/2017 11:1 7 EDT Scan 2 License Distributor PROCEDURE/MINOR VELMA GICAL ORDERABLES * ECG REPORT - SCANNED (05/30/2017 11:17 EDT) 05/30/2017 11:1 7 EDT Scan 2 License Distributor PROCEDURE/MINOR VELMA GICAL ORDERABLES * ECG REPORT - SCANNED (05/28/2017 10:02 EDT) 05/28/2017 10:0 2 EDT Scan 2 License Distributor PROCEDURE/MINOR VELMA GICAL ORDERABLES * ECG REPORT - SCANNED (05/27/2017 13:22 EDT) 05/27/2017 13:2 2 EDT Scan 2 License Distributor PROCEDURE/MINOR VELMA GICAL ORDERABLES * EKG 12-LEAD (05/27/2017 7:37 EDT) 05/27/2017 7:37 EDT Narrative [facility] EKG - 06/01/2017 12:41 EDT ? [facility] ? Test Date: ?2017-05-27 Pat Name: ? DAVID MERA ?Department: ?? JAME Chao ? Room: ? MW531 Gender: ? M ?Glove Boarder: ?? [id number] : ?1950 ? Requested By: PRADIP MONET Order Number: [id number] ? Martha OAKES: ?? PIERRE RUBIO MD ? Measurements Intervals ?Barrett ? Rate: ? 69 ? P: ?23 OK: ? 175 ?QRS: ?-58 QRSD: ? 193 [...] Note Pierre Rubio MD - 06/01/2017 [facility] Test Date: 2017-05-27 Pat Name: DAVID HULLEY Department: [place] [address] Room: [facility] Gender: M Glove Boarder: [id number] : 1950 Requested By: PRADIP MONET Order Number: [id number] Reading MD: PIERRE RUBIO MD Measurements Intervals Barrett Rate: 69 P: 23 OK: 175 QRS: -58 QRSD: 193 T: 189 QT: 528 QTc: 568 Interpretive Statements SINUS RHYTHM WITH ATRIAL TRACKING and VENTRICULAR PACING Compared to ECG 05/26/2017 07:29:50 No significant changes I reviewed the tracing and have either agreed or edited the findings inthis report. Electronically Signed On 06-01-17 12:41:22 EDT by PIERRE YEBOAH. Maria Antonia Zimmerman MD CARDIAC ECG ORDERABL ES Performing Organization Address [facility] de Phone Number [facility] EKG * (ABNORMAL) ELECTROLYTES (05/27/2017 5:57 EDT) Sodium 129(L) 136 - 145 mEq/L 05/27/2017 6:41 EDT [facility] Potassium 3.9 3.5 - 5.0 mEq/L 05/27/2017 6:41 EDT [facility] Chloride 87(L) 96 - 110 mEq/L 05/27/2017 6:41 EDT [facility] CO2 33(H) 22 - 32 mEq/L 05/27/2017 6:41 EDT [facility] Blood specimen (specimen) BLOOD SPECIMEN / Unknown 05/27/2017 5:57 EDT 05/27/2017 6:14 EDT Jayne Pozo MD CHEMISTRY & BLOOD GA S ORDERABLES Performing Organization Address [facility] de Phone Number [facility] [address] [place] [address] * BUN (05/27/2017 5:57 EDT) BUN 13 10 - 26 mg/dl 05/27/2017 6:41 EDT [facility] Blood specimen (specimen) BLOOD SPECIMEN / Unknown 05/27/2017 5:57 EDT 05/27/2017 6:14 EDT Jayne Pozo MD CHEMISTRY & BLOOD GA S ORDERABLES Performing Organization Address [facility] de Phone Number [facility] [address] [place] [address] * MAGNESIUM (05/27/2017 5:57 EDT) Magnesium 1.9 1.7 - 2.8 mg/dl 05/27/2017 6:41 EDT [facility] Blood specimen (specimen) BLOOD SPECIMEN / Unknown 05/27/2017 5:57 EDT 05/27/2017 6:14 EDT Jayne Pozo MD CHEMISTRY & BLOOD GA S ORDERABLES Performing Organization Address [facility] Co de Phone Number [facility] [address] [place] [address] * (ABNORMAL) CREATININE (05/27/2017 5:57 EDT) Creatinine 0.63(L) 0.66 - 1.25 mg/dl 05/27/2017 6:41 EDT [facility] GFR, Calculated 103 >60 ml/min/1.7 3m2 05/27/2017 6:41 EDT [facility] Comment: eGFR calculated using CKD-EPI equation for non Americans. Multiply eGFR by 1.16 for Americans. Blood specimen (specimen) BLOOD SPECIMEN / Unknown 05/27/2017 5:57 EDT 05/27/2017 6:14 EDT Jayne Pozo MD CHEMISTRY & BLOOD GA S ORDERABLES Performing Organization Address [facility] Co de Phone Number [facility] [address] [place] [address] * (ABNORMAL) HEMAGRAM (05/27/2017 5:57 EDT) WBC 6.74 4.0 - 10.4 K/cmm 05/27/2017 6:28 [facility] RBC 3.43(L) 4.36 - 5.78 M/cmm 05/27/2017 6:28 [facility] Hemoglobin 11.3(L) 13.8 - 17.3 gm/dl 05/27/2017 6:28 [facility] HCT 32.2(L) 39.5 - 50.2 % 05/27/2017 6:28 [facility] MCV 94 81 - 95 fl 05/27/2017 6:28 [facility] MCH 32.9 27.6 - 33.0 pg 05/27/2017 6:28 [facility] MCHC 35.1 32.8 - 36.4 gm/dl 05/27/2017 6:28 [facility] RDW-CV 11.3 <14.2 % 05/27/2017 6:28 EDT [facility] RDW-SD 38.4 <46.0 fl 05/27/2017 6:28 EDT [facility] PLT 308 141 - 377 K/cmm 05/27/2017 6:28 EDT [facility] MPV 10.4 9.5 - 12.7 fl 05/27/2017 6:28 EDT [facility] Blood specimen (specimen) BLOOD SPECIMEN / Unknown 05/27/2017 5:57 EDT 05/27/2017 6:14 EDT Jayne Pozo MD HEMATOLOGY & PF4 ORD ERABLES Performing Organization Address [facility] Co de Phone Number [facility] [address] [place] [address] * (ABNORMAL) NT PRO BNP (05/26/2017 17:55 EDT) NT Pro BNP 2,710(H) <300 pg/ml 05/26/2017 18:55 EDT [facility] Comment: Slight hemolysis Results [...] Address [facility] Co de Phone Number [facility] [address] [place] [address] * (ABNORMAL) ELECTROLYTES (05/26/2017 17:55 EDT) Sodium 129(L) 136 - 145 mEq/L 05/26/2017 18:44 EDT [facility] Comment:Slight hemolysis Potassium 4.0 3.5 - 5.0 mEq/L 05/26/2017 18:44 EDT [facility] Comment: Slight hemolysis Hemolysis may elevate potassium result. Chloride 84(L) 96 - 110 mEq/L 05/26/2017 18:44 EDT [facility] Comment:Slight hemolysis CO2 35(H) 22 - 32 mEq/L 05/26/2017 18:44 EDT [facility] Comment:Slight hemolysis Blood specimen (specimen) BLOOD SPECIMEN / Unknown 05/26/2017 17:55 EDT 05/26/2017 18:18 EDT Jayne Pozo MD CHEMISTRY & BLOOD GA S ORDERABLES Performing Organization Address [facility] Co de Phone Number [facility] [address] [place] [address] * INPATIENT ADD-ON (05/26/2017 15:20 EDT) Tests to be added BNP 05/26/2017 15:19 EDT [facility] Number for problems [id number] 05/26/2017 15:32 EDT [facility] Accession number CALLED M5 WITH INABILITY TO PERFORM ADD ON DUE TO NO SUITABLE SAMPLE [id number] 05/26/2017 15:32 EDT [facility] TOPOGRAPHY UNKNOWN / Unknown 05/26/2017 15:20 EDT 05/26/2017 15:31 EDT Vini Mathis MD HEMATOLOGY & PF4 OR DERABLES Performing Organization Address City/[facility] Co de Phone Number [facility] [address] [place] [address] * LEGIONELLA ANTIGEN DETECTION, URINE (05/26/2017 14:04 EDT) Result No Legionella pneumophila serogroup 1 antigen detected. 05/26/2017 15:30 EDT [facility] Specimen of unknown material (specimen) URINE / Unknown 05/26/2017 14:04 EDT 05/26/2017 14:42 EDT Comment:Clean catch specimen Сергей Damico MD MICROBIOLOGY - GENER AL ORDERABLES Performing Organization Address City/[facility]/ZIP Co de Phone Number [facility] [address] [place] [address] * STREPTOCOCCUS PNEUMONIAE ANTIGEN, URINE (05/26/2017 14:04 EDT) Result No Strep pneumoniae antigen detected. 05/26/2017 15:29 EDT [facility] Specimen of unknown material (specimen) URINE / Unknown 05/26/2017 14:04 EDT 05/26/2017 14:42 EDT Comment:Clean catch specimen Сергей Damico MD MICROBIOLOGY - GENER AL ORDERABLES Performing Organization Address [facility] Co de Phone Number [facility] [address] [place] [address] * ECG REPORT - SCANNED (05/26/2017 12:53 EDT) 05/26/2017 12:5 3 EDT Scan 2 License Distributor PROCEDURE/MINOR VELMA GICAL ORDERABLES * CHEST PA [...] agree with the findings. Сергей Damico MD [facility] DIAGNOSTIC IMAGI NG ORDERABLES * BACTERIAL CULTURE/SMEAR, RESPIRATORY (05/26/2017 12:14 EDT) Gram Smear Result Mod Polys 05/26/2017 14:30 EDT [facility] Gram Smear Result Mod Squamous epithelial cells 05/26/2017 14:30 EDT [facility] Gram Smear Result Mod Mixed gram positive and gram negative organisms 05/26/2017 14:30 EDT [facility] Gram Smear Result Smear suggests contamination with saliva. ??Please submit additional specimen if clinically indicated. 05/26/2017 14:30 EDT [facility] Result See gram smear results. 05/26/2017 14:30 EDT [facility] Result Credit Issued 05/26/2017 14:30 EDT [facility] Specimen of unknown material (specimen) SPUTUM / Unknown 05/26/2017 12:14 EDT 05/26/2017 13:50 EDT Сергей Damico MD MICROBIOLOGY - GENER AL ORDERABLES Performing Organization Address [facility] Co de Phone Number [facility] [address] [place] [address] * RESPIRATORY VIRUS DETECTION (05/26/2017 11:57 EDT) Result No RSV, Influenza A, or Influenza B detected by PCR 05/28/2017 14:18 EDT [facility] Result No Metapneumovirus detected by PCR. 05/28/2017 14:18 EDT [facility] Result No Parainfluenza Virus Type 1,2 or 3 detected by PCR. This assay may have decrease sensitivity for Parainfluenza Virus Type 3. 05/28/2017 14:18 EDT [facility] NASOPHARYNGEAL STRUCTURE / Unknown 05/26/2017 11:57 EDT 05/26/2017 12:19 EDT Сергей Damico MD MICROBIOLOGY - GENER AL ORDERABLES Performing Organization Address City/[facility]/ZIP Co de Phone Number [facility] [address] [place] [address] * ECHOCARDIOGRAM LIMITED (05/26/2017 11:16 EDT) Anatomical Region Laterality Modality Other 05/26/2017 11:1 6 EDT Narrative 05/26/2017 11:25 EDT *Interpreting Group:* *[facility]* [address] [place] [address] Date of study: 05/26/2017 Transthoracic Echocardiography M-mode, [...] Rosenberg MD ORDERING ?Tony Rosenberg MD PERFORMING ??[facility], REFERRING ?? Katia Mccallum *PROCEDURE DATA* Procedure information: ??The patient was identified by two identifiers. This study was interpreted by [facility]. Pertinent [...] Andrade MD - 05/26/2017 *Interpreting Group:* *[facility]* [address] [place] [address] Date of study: 05/26/2017 Transthoracic Echocardiography M-mode, [...] identifiers. This study was interpreted by [facility]. Pertinent [...] 12-LEAD (05/26/2017 7:29 EDT) 05/26/2017 7:29 EDT [facility] EKG - 05/27/2017 13:18 EDT ? [facility] ? Test Date: ?2017-05-26 Pat Name: ? DAVID MERA ?Department: ?? [address] ? Room: ? MW531 Gender: ? M ?Glove Boarder: ?? [id number] : ?1950 ? Requested By: PRADIP MONET Order Number: [id number] ? Reading MD: ?? PETER ROLF MD ? Measurements Intervals ?Barrett ? Rate: ? 73 ? P: ? OK: ? 0 ?QRS: ?-45 QRSD: ? 192 [...] - 05/27/2017 [facility] Test Date: 2017-05-26 Pat Name: DAVID MERA Department: [place] [address] Room: [facility] Gender: M Glove Boarder: [id number] : 1950 Requested By: PRADIP MONET Order Number: [id number] Reading MD: LALY DELA CRUZ MD Measurements Intervals Barrett Rate: 73 P: OK: 0 QRS: -45 QRSD: 192 T: 176 [...] Antonia Zimmerman MD CARDIAC ECG ORDERABL ES [facility] EKG * (ABNORMAL) ELECTROLYTES (05/26/2017 5:57 EDT) Sodium 128(L) 136 - 145 mEq/L 05/26/2017 6:54 EDT [facility] Potassium 3.7 3.5 - 5.0 mEq/L 05/26/2017 6:54 EDT [facility] Chloride 85(L) 96 - 110 mEq/L 05/26/2017 6:54 EDT [facility] LABORATORY SERVICES CO2 35(H) 22 - 32 mEq/L 05/26/2017 6:54 EDT [facility] Blood specimen (specimen) BLOOD SPECIMEN / Unknown 05/26/2017 5:57 EDT 05/26/2017 6:26 EDT Jayne Pozo MD CHEMISTRY & BLOOD GA S ORDERABLES Performing Organization Address City/[facility]/ZIP Co de Phone Number [facility] [address] [place] [address] * (ABNORMAL) BUN (05/26/2017 5:57 EDT) BUN 9(L) 10 - 26 mg/dl 05/26/2017 6:54 EDT [facility] Blood specimen (specimen) BLOOD SPECIMEN / Unknown 05/26/2017 5:57 EDT 05/26/2017 6:26 EDT Jayne Pozo MD CHEMISTRY & BLOOD GA S ORDERABLES Performing Organization Address City/[facility]/ZIP Co de Phone Number [facility] [address] [place] [address] * MAGNESIUM (05/26/2017 5:57 EDT) Magnesium 1.8 1.7 - 2.8 mg/dl 05/26/2017 6:54 EDT [facility] Blood specimen (specimen) BLOOD SPECIMEN / Unknown 05/26/2017 5:57 EDT 05/26/2017 6:26 EDT Jayne Pozo MD CHEMISTRY & BLOOD GA S ORDERABLES Performing Organization Address City/[facility] Co de Phone Number [facility] [address] [place] [address] * (ABNORMAL) CREATININE (05/26/2017 5:57 EDT) Creatinine 0.53(L) 0.66 - 1.25 mg/dl 05/26/2017 6:54 EDT [facility] GFR, Calculated 110 >60 ml/min/1.7 3m2 05/26/2017 6:54 [facility] Comment: eGFR calculated using CKD-EPI equation for non Americans. Multiply eGFR by 1.16 for Americans. Blood specimen (specimen) BLOOD SPECIMEN / Unknown 05/26/2017 5:57 EDT 05/26/2017 6:26 EDT Jayne Pozo MD CHEMISTRY & BLOOD GA S ORDERABLES [facility] [address] [place] [address] * (ABNORMAL) HEMAGRAM (05/26/2017 5:57 EDT) WBC 7.06 4.0 - 10.4 K/cmm 05/26/2017 6:33 [facility] RBC 3.20(L) 4.36 - 5.78 M/cmm 05/26/2017 6:33 [facility] Hemoglobin 10.7(L) 13.8 - 17.3 gm/dl 05/26/2017 6:33 [facility] HCT 30.0(L) 39.5 - 50.2 % 05/26/2017 6:33 [facility] MCV 94 81 - 95 fl 05/26/2017 6:33 [facility] MCH 33.4(H) 27.6 - 33.0 pg 05/26/2017 6:33 [facility] MCHC 35.7 32.8 - 36.4 gm/dl 05/26/2017 6:33 [facility] RDW-CV 11.3 <14.2 % 05/26/2017 6:33 [facility] RDW-SD 38.4 <46.0 fl 05/26/2017 6:33 [facility] PLT 306 141 - 377 K/cmm 05/26/2017 6:33 [facility] MPV 10.3 9.5 - 12.7 fl 05/26/2017 6:33 [facility] Blood specimen (specimen) BLOOD SPECIMEN / Unknown 05/26/2017 5:57 EDT 05/26/2017 6:26 EDT Jayne Pozo MD HEMATOLOGY & PF4 ORD ERABLES Performing Organization Address [facility] Co de Phone Number [facility] [address] [place] [address] * (ABNORMAL) ELECTROLYTES (05/25/2017 17:58 EDT) Sodium 130(L) 136 - 145 mEq/L 05/25/2017 18:29 EDT [facility] Potassium 3.6 3.5 - 5.0 mEq/L 05/25/2017 18:29 EDT [facility] Chloride 83(L) 96 - 110 mEq/L 05/25/2017 18:29 EDT [facility] CO2 36(H) 22 - 32 mEq/L 05/25/2017 18:29 EDT [facility] Blood specimen (specimen) BLOOD SPECIMEN / Unknown 05/25/2017 17:58 EDT 05/25/2017 18:03 EDT Jayne Pozo MD CHEMISTRY & BLOOD GA S ORDERABLES Performing Organization Address [facility] Co de Phone Number [facility] [address] [place] [address] * OSMOLALITY, URINE (05/25/2017 14:29 EDT) Osmolality, Ur 284 150 - 1,150 mos/kg 05/25/2017 15:18 EDT [facility] Urine specimen (specimen) URINE / Unknown 05/25/2017 14:29 EDT 05/25/2017 14:37 EDT Luciano Christian MD URINALYSIS ORDERABLE S Performing Organization Address [facility] Co de Phone Number [facility] [address] [place] [address] * URINE ELECTROLYTES (05/25/2017 14:29 EDT) Chloride, Ur 41 mEq/L 05/25/2017 15:10 EDT [facility] Comment: Reference Range: No reference range available Potassium, Urine 31.1 mEq/L 05/25/2017 15:10 EDT [facility] Sodium, Ur 81.0 mEq/L 05/25/2017 15:10 EDT [facility] Urine specimen (specimen) URINE / Unknown 05/25/2017 14:29 EDT 05/25/2017 14:37 EDT Luciano Christian MD URINALYSIS ORDERABLE S [facility] [address] [place] [address] * EKG 12-LEAD (05/25/2017 7:40 EDT) 05/25/2017 7:40 EDT Narrative [facility] E[facility] - 06/02/2017 8:35 EDT ? [facility] ? Test Date: ?2017-05-25 Pat Name: ? DAVID MERA ?Department: ?? [facility] ? Room: ? MW531 Gender: ? M ?Glove Boarder: ?? [id number] : ?1950 ? Requested By: PRADIP MONET Order Number: [id number] ? Reading MD: ?? SENG PERSON SA, MD ? Measurements Intervals ?Barrett ? Rate: ? 76 ? P: ?35 OK: ? 218 ?QRS: ?-47 QRSD: ? 188 [...] - 06/02/2017 [facility] Test Date: 2017-05-25 Pat Name: DAVID MERA Department: JAME Chao Room: [facility] Gender: M Glove Boarder: [id number] : 1950 Requested By: PRADIP MONET Order Number: [id number] Reading MD: SENG ROBLEDO Measurements Intervals Barrett Rate: 76 P: 35 OK: 218 QRS: -47 QRSD: 188 T: 193 [...] CARDIAC ECG ORDERABL ES Performing Organization Address City/[facility]/ZIP Co de Phone Number [facility] * (ABNORMAL) ELECTROLYTES (05/25/2017 5:59 EDT) Sodium 127(L) 136 - 145 mEq/L 05/25/2017 7:02 EDT [facility] Potassium 3.7 3.5 - 5.0 mEq/L 05/25/2017 7:02 EDT [facility] Chloride 85(L) 96 - 110 mEq/L 05/25/2017 7:02 EDT [facility] CO2 36(H) 22 - 32 mEq/L 05/25/2017 7:02 EDT [facility] Blood specimen (specimen) BLOOD SPECIMEN / Unknown 05/25/2017 5:59 EDT 05/25/2017 6:23 EDT Jayne Pozo MD CHEMISTRY & BLOOD GA S ORDERABLES [facility] [address] [place] [address] * (ABNORMAL) BUN (05/25/2017 5:59 EDT) BUN 9(L) 10 - 26 mg/dl 05/25/2017 7:02 EDT [facility] Blood specimen (specimen) BLOOD SPECIMEN / Unknown 05/25/2017 5:59 EDT 05/25/2017 6:23 EDT Jayne Pozo MD CHEMISTRY & BLOOD GA S ORDERABLES [facility] [address] [place] [address] * MAGNESIUM (05/25/2017 5:59 EDT) Magnesium 1.7 1.7 - 2.8 mg/dl 05/25/2017 7:02 EDT [facility] Blood specimen (specimen) BLOOD SPECIMEN / Unknown 05/25/2017 5:59 EDT 05/25/2017 6:23 EDT Jayne Pozo MD CHEMISTRY & BLOOD GA S ORDERABLES Performing Organization Address [facility] Co de Phone Number [facility] [address] [place] [address] * (ABNORMAL) CREATININE (05/25/2017 5:59 EDT) Creatinine 0.54(L) 0.66 - 1.25 mg/dl 05/25/2017 7:02 EDT [facility] GFR, Calculated 109 >60 ml/min/1.7 3m2 05/25/2017 7:02 EDT [facility] Comment: eGFR calculated using CKD-EPI equation for non Americans. Multiply eGFR by 1.16 for Americans. Blood specimen (specimen) BLOOD SPECIMEN / Unknown 05/25/2017 5:59 EDT 05/25/2017 6:23 EDT Jayne Pozo MD CHEMISTRY & BLOOD GA S ORDERABLES Performing Organization Address [facility] Co de Phone Number [facility] [address] [place] [address] * (ABNORMAL) HEMAGRAM (05/25/2017 5:59 EDT) WBC 6.99 4.0 - 10.4 K/cmm 05/25/2017 6:36 [facility] RBC 3.16(L) 4.36 - 5.78 M/cmm 05/25/2017 6:36 [facility] Hemoglobin 10.5(L) 13.8 - 17.3 gm/dl 05/25/2017 6:36 [facility] HCT 29.5(L) 39.5 - 50.2 % 05/25/2017 6:36 [facility] MCV 93 81 - 95 fl 05/25/2017 6:36 [facility] MCH 33.2(H) 27.6 - 33.0 pg 05/25/2017 6:36 [facility] MCHC 35.6 32.8 - 36.4 gm/dl 05/25/2017 6:36 [facility] RDW-CV 11.2 <14.2 % 05/25/2017 6:36 [facility] RDW-SD 38.8 <46.0 fl 05/25/2017 6:36 [facility] PLT 290 141 - 377 K/cmm 05/25/2017 6:36 [facility] MPV 10.7 9.5 - 12.7 fl 05/25/2017 6:36 [facility] Blood specimen (specimen) BLOOD SPECIMEN / Unknown 05/25/2017 5:59 EDT 05/25/2017 6:23 EDT Jayne Pozo MD HEMATOLOGY & PF4 ORD ERABLES [facility] [address] [place] [address] * (ABNORMAL) ELECTROLYTES (05/24/2017 18:02 EDT) Sodium 127(L) 136 - 145 mEq/L 05/24/2017 18:40 [facility] Potassium 3.7 3.5 - 5.0 mEq/L 05/24/2017 18:40 [facility] Chloride 80(L) 96 - 110 mEq/L 05/24/2017 18:40 EDT [facility] CO2 37(H) 22 - 32 mEq/L 05/24/2017 18:48 EDT [facility] Blood specimen (specimen) BLOOD SPECIMEN / Unknown 05/24/2017 18:02 EDT 05/24/2017 18:16 EDT Jayne Pozo MD CHEMISTRY & BLOOD GA S ORDERABLES [facility] [address] [place] [address] * EKG 12-LEAD (05/24/2017 7:22 EDT) 05/24/2017 7:22 EDT Narrative [facility] E[facility] - 05/28/2017 9:56 EDT ? [facility] ? Test Date: ?2017-05-24 Pat Name: ? DAVID MERA ?Department: ?? [facility] 5 ? Room: ? MW531 Gender: ? M ?Glove Boarder: ?? [id number] : ?1950 ? Requested By: PRADIP MONET Order Number: [id number] ? Martha OAKES: ?? ERVIN WILHELM MD ? Measurements Intervals ?Barrett ? Rate: ? 103 ?P: ?-19 OK: ? 232 ?QRS: ?-39 QRSD: ? 192 ?T: ?168 QT: ? 412 ? QTc: ?542 ? Interpretive Statements ELECTRONIC VENTRICULAR PACEMAKER Compared to ECG 05/23/2017 07:20:54 No significant changes I reviewed the tracing and have either agreed or edited the findings in this report. Electronically Signed On 05-28-17 09:56:53 EDT by ERVIN WILHELM MD. Procedure Note Ervin Wilhelm MD - 05/28/2017 [facility] Test Date: 2017-05-24 Pat Name: DAVID MERA Department: [facility] 5 Room: [facility] Gender: M Glove Boarder: [id number] : 1950 Requested By: PRADIP MONET Order Number: [id number] Reading MD: ERVIN WILHELM MD Measurements Intervals Barrett Rate: 103 P: -19 OK: 232 QRS: -39 QRSD: 192 T: 168 QT: 412 QTc: 542 Interpretive Statements ELECTRONIC VENTRICULAR PACEMAKER Compared to ECG 05/23/2017 07:20:54 No significant changes I reviewed the tracing and have either agreed or edited the findings inthis report. Electronically Signed On 05-28-17 09:56:53 EDT by ERVIN MARCH. Maria Antonia Zimmerman MD CARDIAC ECG ORDERABL ES Performing Organization Address [facility] Co de Phone Number [facility] * (ABNORMAL) ELECTROLYTES (05/24/2017 5:51 EDT) Sodium 128(L) 136 - 145 mEq/L 05/24/2017 6:56 EDT [facility] Potassium 3.9 3.5 - 5.0 mEq/L 05/24/2017 6:56 EDT [facility] Chloride 83(L) 96 - 110 mEq/L 05/24/2017 6:56 EDT [facility] CO2 36(H) 22 - 32 mEq/L 05/24/2017 7:10 EDT [facility] Blood specimen (specimen) BLOOD SPECIMEN / Unknown 05/24/2017 5:51 EDT 05/24/2017 6:19 EDT Jayne Pozo MD CHEMISTRY & BLOOD GA S ORDERABLES Performing Organization Address [facility] de Phone Number [facility] [address] [place] [address] * (ABNORMAL) BUN (05/24/2017 5:51 EDT) BUN 9(L) 10 - 26 mg/dl 05/24/2017 6:56 EDT [facility] Blood specimen (specimen) BLOOD SPECIMEN / Unknown 05/24/2017 5:51 EDT 05/24/2017 6:19 EDT Jayne Pozo MD CHEMISTRY & BLOOD GA S ORDERABLES Performing Organization Address [facility] de Phone Number [facility] [address] [place] [address] * MAGNESIUM (05/24/2017 5:51 EDT) Magnesium 1.7 1.7 - 2.8 mg/dl 05/24/2017 6:56 EDT [facility] Blood specimen (specimen) BLOOD SPECIMEN / Unknown 05/24/2017 5:51 EDT 05/24/2017 6:19 EDT Jayne Pozo MD CHEMISTRY & BLOOD GA S ORDERABLES [facility] [address] [place] [address] * (ABNORMAL) CREATININE (05/24/2017 5:51 EDT) Creatinine 0.59(L) 0.66 - 1.25 mg/dl 05/24/2017 6:56 EDT [facility] GFR, Calculated 105 >60 ml/min/1.7 3m2 05/24/2017 6:56 EDT [facility] Comment: eGFR calculated using CKD-EPI equation for non Americans. Multiply eGFR by 1.16 for Americans. Blood specimen (specimen) BLOOD SPECIMEN / Unknown 05/24/2017 5:51 EDT 05/24/2017 6:19 EDT Jayne Pozo MD CHEMISTRY & BLOOD GA S ORDERABLES Performing Organization Address City/[facility]/ZIP Co de Phone Number [facility] [address] [place] [address] * (ABNORMAL) HEMAGRAM (05/24/2017 5:51 EDT) WBC 7.61 4.0 - 10.4 K/cmm 05/24/2017 6:30 EDT [facility] RBC 3.35(L) 4.36 - 5.78 M/cmm 05/24/2017 6:30 EDT [facility] Hemoglobin 11.0(L) 13.8 - 17.3 gm/dl 05/24/2017 6:30 EDT [facility] HCT 31.4(L) 39.5 - 50.2 % 05/24/2017 6:30 EDT [facility] MCV 94 81 - 95 fl 05/24/2017 6:30 EDT [facility] MCH 32.8 27.6 - 33.0 pg 05/24/2017 6:30 EDT [facility] MCHC 35.0 32.8 - 36.4 gm/dl 05/24/2017 6:30 EDT [facility] RDW-CV 11.4 <14.2 % 05/24/2017 6:30 T [facility] RDW-SD 39.0 <46.0 fl 05/24/2017 6:30 EDT [facility] PLT 273 141 - 377 K/cmm 05/24/2017 6:30 T [facility] MPV 10.9 9.5 - 12.7 fl 05/24/2017 6:30 EDT [facility] Blood specimen (specimen) BLOOD SPECIMEN / Unknown 05/24/2017 5:51 EDT 05/24/2017 6:19 EDT Jayne Pozo MD HEMATOLOGY & PF4 ORD ERABLES [facility] [address] [place] [address] * (ABNORMAL) ELECTROLYTES (05/23/2017 21:40 EDT) Sodium 128(L) 136 - 145 mEq/L 05/23/2017 22:23 EDT [facility] Potassium 3.6 3.5 - 5.0 mEq/L 05/23/2017 22:23 EDT [facility] Chloride 81(L) 96 - 110 mEq/L 05/23/2017 22:23 EDT [facility] CO2 38(H) 22 - 32 mEq/L 05/23/2017 22:56 EDT [facility] Blood specimen (specimen) BLOOD SPECIMEN / Unknown 05/23/2017 21:40 EDT 05/23/2017 21:45 EDT Jayne Pozo MD CHEMISTRY & BLOOD GA S ORDERABLES Performing Organization Address City/[facility] Co de Phone Number [facility] [address] [place] [address] * ECG REPORT - SCANNED (05/23/2017 15:08 EDT) 05/23/2017 15:0 8 EDT Scan 2 License Distributor PROCEDURE/MINOR VELMA GICAL ORDERABLES * (ABNORMAL) ELECTROLYTES (05/23/2017 12:16 EDT) Sodium 126(L) 136 - 145 mEq/L 05/23/2017 12:55 EDT [facility] Potassium 3.7 3.5 - 5.0 mEq/L 05/23/2017 12:55 EDT [facility] Chloride 81(L) 96 - 110 mEq/L 05/23/2017 12:55 EDT [facility] CO2 36(H) 22 - 32 mEq/L 05/23/2017 12:55 EDT [facility] Blood specimen (specimen) BLOOD SPECIMEN / Unknown 05/23/2017 12:16 EDT 05/23/2017 12:26 EDT Jayne Pozo MD CHEMISTRY & BLOOD GA S ORDERABLES Performing Organization Address [facility] Co de Phone Number [facility] [address] [place] [address] * ECG REPORT - SCANNED (05/23/2017 11:51 EDT) 05/23/2017 11:5 1 EDT Scan 2 License Distributor PROCEDURE/MINOR VELMA GICAL ORDERABLES * ECHOCARDIOGRAM LIMITED (05/23/2017 10:59 EDT) Anatomical Region Laterality Modality Other 05/23/2017 10:5 9 EDT Narrative 05/23/2017 11:19 EDT *Interpreting Group:* *[facility]* [address] [place] [address] Date of study: 05/23/2017 Transthoracic Echocardiography M-mode, [...] ?Akash Reyes MD ATTENDING ?Tony Rosenberg MD ADOBE DEVELOPER ??Hali Del Real JUSTINO PERFORMING ?? Uvc, ORDERING ? Jayne Landry REFERRING ?Xena Katiacarrington Rodas *PROCEDURE DATA* Procedure information: ??This study was interpreted by [facility]. Pertinent images and digital data are archived for permanent storage and are available for subsequent review. Study status: ??Routine. Transthoracic echocardiography. ??M-mode, limited 2D, limited spectral Doppler, and color Doppler. A Transthoracic Echocardiogram was performed. Scanning was performed from the parasternal, apical, and subcostal acoustic windows. Images were obtained using an [employer] 10 cardiac ultrasound machine. Image quality was [...] Andrade MD - 05/23/2017 *Interpreting Group:* *[facility]* [address] [place] [address] Date of study: 05/23/2017 Transthoracic Echocardiography M-mode, [...] Akash Reyes MD ATTENDING Tony Rosenberg MD ADOBE DEVELOPER Hali Del Real, [facility] PERFORMING [employer], Ip ORDERING Jayne Landry Katelyn Doran *PROCEDURE DATA* Procedure information: This study was interpreted by [facility]. Pertinent [...] EDT) 05/23/2017 10:4 2 EDT Scan 2 License Distributor PROCEDURE/MINOR VELMA GICAL ORDERABLES * FLUID DIFFERENTIAL (05/23/2017 7:47 EDT) Neutrophils, Fluid 30 % 05/23/2017 11:34 T [facility] Lymphocytes, Fluid 64 % 05/23/2017 11:34 EDT [facility] Piatt/Macro, Fluid 5 % 05/23/2017 11:34 [facility] Eosinophil, Fluid 1 % 05/23/2017 11:34 [facility] PERICARDIAL FLUID AND CAVITY, CS / Unknown 05/23/2017 7:47 EDT 05/23/2017 8:18 EDT Сергей Damico MD GEN LAB UNIT COLLECT ORDERABLES Performing Organization Address City/[facility] Co de Phone Number [facility] [address] [place] [address] * FUNGUS CULTURE/SMEAR, OTHER (05/23/2017 7:47 EDT) Fungal Smear No fungi seen 05/23/2017 14:20 EDT [facility] Result No fungi isolated 05/30/2017 7:35 EDT [facility] FOSMIC PERICARDIAL FLUID AND CAVITY, CS / Unknown 05/23/2017 7:47 EDT 05/23/2017 9:17 EDT Comment:Markedly bloody Сергей Damico MD MICROBIOLOGY - GENER AL ORDERABLES Performing Organization Address [facility] Co de Phone Number [facility] [address] [place] [address] * ANAEROBE CULTURE/SMEAR(INC. AEROBES), FLUID (05/23/2017 7:47 EDT) Gram Smear Result Few Polys 05/23/2017 9:37 EDT [facility] Gram Smear Result No bacteria seen 05/23/2017 9:37 EDT [facility] Result No growth 05/25/2017 11:45 EDT [facility] FOSMIC PERICARDIAL FLUID AND CAVITY, CS / Unknown 05/23/2017 7:47 EDT 05/23/2017 9:16 EDT Comment:Markedly bloody Сергей Damico MD MICROBIOLOGY - GENER AL ORDERABLES Performing Organization Address [facility] Co de Phone Number [facility] [address] [place] [address] * HEMATOCRIT, BODY FLUID (05/23/2017 7:47 EDT) Hematocrit,Bod y Fld 6.5 % 05/23/2017 9:56 EDT [facility] Comment:PERICARDIAL FLUID [facility] PERICARDIAL FLUID AND CAVITY, CS / Unknown 05/23/2017 7:47 EDT 05/23/2017 8:18 EDT Сергей Damico MD GEN LAB UNIT COLLECT ORDERABLES Performing Organization Address City/[facility] Co de Phone Number [facility] [address] [place] [address] * FLUID CELL COUNT (05/23/2017 7:47 EDT) RBC, Fluid 661,000 /cmm 05/23/2017 9:41 EDT [facility] Nucleated Cells 1,773 /cmm 05/23/2017 9:41 EDT [facility] Fluid Comment Markedly bloody 05/23/2017 9:41 EDT [facility] PERICARDIAL FLUID AND CAVITY, CS / Unknown 05/23/2017 7:47 EDT 05/23/2017 8:18 EDT Сергей Damico MD GEN LAB UNIT COLLECT ORDERABLES Performing Organization Address [facility] Co de Phone Number [facility] [address] [place] [address] * TOTAL PROTEIN, FLUID (05/23/2017 7:47 EDT) Protein, Fluid 5.5 g/dl 05/23/2017 9:58 EDT [facility] Comment: Reference Range: Pleural [...] the blood, serum, or plasma is recommended. [facility] PERICARDIAL FLUID AND CAVITY, CS / Unknown 05/23/2017 7:47 EDT 05/23/2017 8:18 EDT Сергей Damico MD GEN LAB UNIT COLLECT ORDERABLES Performing Organization Address City/[facility] Co de Phone Number [facility] [address] [place] [address] * LDH, FLUID (05/23/2017 7:47 EDT) LDH, Fluid 2,337 U/L 05/23/2017 10:05 EDT [facility] Comment: Pleural fluid specimen [...] the blood, serum, or plasma is recommended. [facility] PERICARDIAL FLUID AND CAVITY, CS / Unknown 05/23/2017 7:47 EDT 05/23/2017 8:18 EDT Сергей Damico MD GEN LAB UNIT COLLECT ORDERABLES Performing Organization Address [facility] de Phone Number [facility] [address] [place] [address] * GLUCOSE, FLUID (05/23/2017 7:47 EDT) Glucose, Fluid 54 mg/dl 05/23/2017 9:58 EDT [facility] Comment: Reference Range: Pleural [...] the blood, serum, or plasma is recommended. [facility] PERICARDIAL FLUID AND CAVITY, CS / Unknown 05/23/2017 7:47 EDT 05/23/2017 8:18 EDT Сергей Damico MD GEN LAB UNIT COLLECT ORDERABLES Performing Organization Address City/[facility] Co de Phone Number [facility] [address] [place] [address] * ALBUMIN, FLUID (05/23/2017 7:47 EDT) Albumin, Fluid 2.5 g/dl 05/23/2017 9:58 EDT [facility] Comment: Reference Range: Pleural [...] the blood, serum, or plasma is recommended. [facility] PERICARDIAL FLUID AND CAVITY, CS / Unknown 05/23/2017 7:47 EDT 05/23/2017 8:18 EDT Сергей Damico MD GEN LAB UNIT COLLECT ORDERABLES Performing Organization Address City/[facility]/ZIP Co de Phone Number [facility] [address] [place] [address] * EKG 12-LEAD (05/23/2017 7:20 EDT) 05/23/2017 7:20 EDT Narrative [facility] EKG - 05/23/2017 11:45 EDT ? [facility] ? Test Date: ?2017-05-23 Pat Name: ? DAVID MERA ?Department: ?? [facility] ? Room: ? MW531 Gender: ? M ?Glove Boarder: ?? [id number] : ?1950 ? Requested By: PRADIP MONET Order Number: [id number] ? Reading MD: ?? MARCO A FOX MD ? Measurements Intervals ?[place] ? Rate: ? 102 ?P: ? OK: ? 0 ?QRS: ?-20 QRSD: ? 189 ?T: ?178 QT: ? 398 ? QTc: ?519 ? Interpretive Statements ELECTRONIC VENTRICULAR PACEMAKER ABNORMAL RHYTHM ECG I reviewed the tracing and have either agreed or edited the findings in this report. Electronically Signed On 05-23-17 11:45:47 EDT by MARCO A FOX MD. Procedure Note Marco A Fox MD - 05/23/2017 [facility] Test Date: 2017-05-23 Pat Name: DAVID MERA Department: [place] [address] Room: [facility] Gender: M Glove Boarder: [id number] : 1950 Requested By: PRADIP MONET Order Number: [id number] Martha MD: MARCO A FOX MD Measurements Intervals Barrett Rate: 102 P: OK: 0 QRS: -20 QRSD: 189 T: 178 QT: 398 QTc: 519 Interpretive Statements ELECTRONIC VENTRICULAR PACEMAKER ABNORMAL RHYTHM ECG I reviewed the tracing and have either agreed or edited the findings inthis report. Electronically Signed On 05-23-17 11:45:47 EDT by MARCO A NGUYEN. Maria Antonia Zimmerman MD CARDIAC ECG ORDERABL ES [facility] EKG * (ABNORMAL) ELECTROLYTES (05/23/2017 6:42 EDT) Sodium 124(LL) 136 - 145 mEq/L 05/23/2017 7:45 EDT [facility] Potassium 3.5 3.5 - 5.0 mEq/L 05/23/2017 7:45 EDT [facility] Chloride 84(L) 96 - 110 mEq/L 05/23/2017 7:45 EDT [facility] CO2 33(H) 22 - 32 mEq/L 05/23/2017 7:45 EDT [facility] Blood specimen (specimen) BLOOD SPECIMEN / Unknown 05/23/2017 6:42 EDT 05/23/2017 7:16 EDT Jayne Pozo MD CHEMISTRY & BLOOD GA S ORDERABLES Performing Organization Address [facility] Co de Phone Number [facility] [address] [place] [address] * BUN (05/23/2017 6:42 EDT) BUN 10 10 - 26 mg/dl 05/23/2017 7:45 EDT [facility] Blood specimen (specimen) BLOOD SPECIMEN / Unknown 05/23/2017 6:42 EDT 05/23/2017 7:16 EDT Jayne Pozo MD CHEMISTRY & BLOOD GA S ORDERABLES Performing Organization Address [facility] de Phone Number [facility] [address] [place] [address] * MAGNESIUM (05/23/2017 6:42 EDT) Magnesium 1.7 1.7 - 2.8 mg/dl 05/23/2017 7:45 EDT [facility] Blood specimen (specimen) BLOOD SPECIMEN / Unknown 05/23/2017 6:42 EDT 05/23/2017 7:16 EDT Jayne Pozo MD CHEMISTRY & BLOOD GA S ORDERABLES Performing Organization Address [facility] Co de Phone Number [facility] [address] [place] [address] * (ABNORMAL) CREATININE (05/23/2017 6:42 EDT) Creatinine 0.50(L) 0.66 - 1.25 mg/dl 05/23/2017 7:45 EDT [facility] GFR, Calculated 113 >60 ml/min/1.7 3m2 05/23/2017 7:45 EDT [facility] Comment: eGFR calculated using CKD-EPI equation for non Americans. Multiply eGFR by 1.16 for Americans. Blood specimen (specimen) BLOOD SPECIMEN / Unknown 05/23/2017 6:42 EDT 05/23/2017 7:16 EDT Jayne Pozo MD CHEMISTRY & BLOOD GA S ORDERABLES [facility] [address] [place] [address] * (ABNORMAL) HEMAGRAM (05/23/2017 6:42 EDT) WBC 8.96 4.0 - 10.4 K/cmm 05/23/2017 7:24 [facility] RBC 3.30(L) 4.36 - 5.78 M/cmm 05/23/2017 7:24 [facility] Hemoglobin 11.0(L) 13.8 - 17.3 gm/dl 05/23/2017 7:24 [facility] HCT 30.8(L) 39.5 - 50.2 % 05/23/2017 7:24 [facility] MCV 93 81 - 95 fl 05/23/2017 7:24 [facility] MCH 33.3(H) 27.6 - 33.0 pg 05/23/2017 7:24 [facility] MCHC 35.7 32.8 - 36.4 gm/dl 05/23/2017 7:24 [facility] RDW-CV 11.3 <14.2 % 05/23/2017 7:24 [facility] RDW-SD 38.5 <46.0 fl 05/23/2017 7:24 [facility] PLT 254 141 - 377 K/cmm 05/23/2017 7:24 [facility] MPV 11.2 9.5 - 12.7 fl 05/23/2017 7:24 [facility] Blood specimen (specimen) BLOOD SPECIMEN / Unknown 05/23/2017 6:42 EDT 05/23/2017 7:16 EDT Jayne Pozo MD HEMATOLOGY & PF4 ORD ERABLES [facility] [address] [place] [address] * CYTOPATHOLOGY (05/23/2017 0:00 EDT) Pathology Report: CYTOPATHOLOGY REPORT Reports generated via electronic interface contain original data; however they are lacking the format of the original report. Caution should be taken when reading/interpret ing unformatted reports. Name: ? DAVID MERA ? Accession #: ? [id number] : ? 1950 (Age: 66) ??M ?Collect [...] cellular enhancement technique. ? End of Report [facility] 05/23/2017 05/23/2017 9:4 0 EDT Сергей Damico MD PATHOLOGY ORDERABLES Performing Organization Address [facility] de Phone Number [facility] [address] [place] [address] * (ABNORMAL) ELECTROLYTES (05/22/2017 23:40 EDT) Sodium 125(L) 136 - 145 mEq/L 05/23/2017 0:39 EDT [facility] Potassium 3.3(L) 3.5 - 5.0 mEq/L 05/23/2017 0:39 EDT [facility] Chloride 84(L) 96 - 110 mEq/L 05/23/2017 0:39 EDT [facility] CO2 33(H) 22 - 32 mEq/L 05/23/2017 0:39 EDT [facility] Blood specimen (specimen) BLOOD SPECIMEN / Unknown 05/22/2017 23:40 EDT 05/22/2017 23:58 EDT Jayne Pozo MD CHEMISTRY & BLOOD GA S ORDERABLES Performing Organization Address [facility] de Phone Number [facility] [address] [place] [address] * (ABNORMAL) ELECTROLYTES (05/22/2017 18:36 EDT) Sodium 124(LL) 136 - 145 mEq/L 05/22/2017 19:37 EDT [facility] Comment:Slight hemolysis Potassium 3.9 3.5 - 5.0 mEq/L 05/22/2017 19:37 EDT [facility] Comment: Slight hemolysis Hemolysis may elevate potassium result. Chloride 81(L) 96 - 110 mEq/L 05/22/2017 19:37 EDT [facility] Comment:Slight hemolysis CO2 32 22 - 32 mEq/L 05/22/2017 19:37 EDT [facility] Comment:Slight hemolysis Blood specimen (specimen) BLOOD SPECIMEN / Unknown 05/22/2017 18:36 EDT 05/22/2017 19:04 EDT Jayne Pozo MD CHEMISTRY & BLOOD GA S ORDERABLES [facility] [address] [place] [address] * CHEST PA AND LATERAL (05/22/2017 14:43 [...] 136 - 145 mEq/L 05/22/2017 13:23 EDT [facility] Comment:Moderate hemolysis Potassium 5.3(H) 3.5 - 5.0 mEq/L 05/22/2017 13:23 EDT [facility] Comment: Moderate hemolysis Hemolysis may elevate potassium result. Chloride 85(L) 96 - 110 mEq/L 05/22/2017 13:23 EDT [facility] Comment:Moderate hemolysis CO2 27 22 - 32 mEq/L 05/22/2017 13:23 EDT [facility] Comment:Moderate hemolysis Blood specimen (specimen) BLOOD SPECIMEN / Unknown 05/22/2017 12:36 EDT 05/22/2017 12:51 EDT Jayne Pozo MD CHEMISTRY & BLOOD GA S ORDERABLES Performing Organization Address City/[facility] Co de Phone Number [facility] [address] [place] [address] * BACTERIAL CULTURE, BLOOD (05/22/2017 9:58 EDT) Result No growth 05/27/2017 6:35 EDT [facility] Blood specimen (specimen) BLOOD SPECIMEN / Unknown 05/22/2017 9:58 EDT 05/22/2017 10:47 EDT Comment:Left~Hand~AEROBIC BL OOD CULTURE BOTTLE~Volume of blood collected may not be adequate for detection of bacteremia/septicemia.~2ND SET Jayne Pozo MD MICROBIOLOGY - GENER AL ORDERABLES Performing Organization Address [facility] Co de Phone Number [facility] [address] [place] [address] * BACTERIAL CULTURE, BLOOD (05/22/2017 9:58 EDT) Result No growth 05/27/2017 6:35 EDT [facility] Blood specimen (specimen) BLOOD SPECIMEN / Unknown 05/22/2017 9:58 EDT 05/22/2017 10:47 EDT Comment:Left~Hand~Total volu me of blood collected:~20 ml Jayne Pozo MD MICROBIOLOGY - GENER AL ORDERABLES Performing Organization Address [facility] Co de Phone Number [facility] [address] [place] [address] * EKG 12-LEAD (05/22/2017 8:04 EDT) 05/22/2017 8:04 EDT Narrative [facility] - 05/26/2017 12:50 EDT ? [facility] ? Test Date: ?2017-05-22 Pat Name: ? DAVID MERA ?Department: ?? [facility] 5 ? Room: ? MW531 Gender: ? M ?Glove Boarder: ?? [id number] : ?1950 ? Requested By: PRADIP MONET Order Number: [id number] ? Reading MD: ?? GAGAN RAMOS MD ? Measurements Intervals ?Barrett ? Rate: ? 115 ?P: ?-20 OK: ? 237 ?QRS: ?-24 QRSD: ? 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 Electronically Signed On 05-26-17 12:50:27 EDT by GAGAN LEDESMA. Maria Antonia Zimmerman MD CARDIAC ECG ORDERABL ES [facility] E[facility] * BUN (05/22/2017 4:09 EDT) BUN 11 10 - 26 mg/dl 05/22/2017 4:54 EDT [facility] Blood specimen (specimen) BLOOD SPECIMEN / Unknown 05/22/2017 4:09 EDT 05/22/2017 4:18 EDT Jayne Pozo MD CHEMISTRY & BLOOD GA S ORDERABLES Performing Organization Address City/[facility]/ZIP Co de Phone Number [facility] [address] [place] [address] * MAGNESIUM (05/22/2017 4:09 EDT) Magnesium 2.1 1.7 - 2.8 mg/dl 05/22/2017 4:54 EDT [facility] Blood specimen (specimen) BLOOD SPECIMEN / Unknown 05/22/2017 4:09 EDT 05/22/2017 4:18 EDT aJyne Pozo MD CHEMISTRY & BLOOD GA S ORDERABLES Performing Organization Address [facility] Co de Phone Number [facility] [address] [place] [address] * (ABNORMAL) CREATININE (05/22/2017 4:09 EDT) Creatinine 0.56(L) 0.66 - 1.25 mg/dl 05/22/2017 4:54 EDT [facility] GFR, Calculated 108 >60 ml/min/1.7 3m2 05/22/2017 4:54 EDT [facility] Comment: eGFR calculated using CKD-EPI equation for non Americans. Multiply eGFR by 1.16 for Americans. Blood specimen (specimen) BLOOD SPECIMEN / Unknown 05/22/2017 4:09 EDT 05/22/2017 4:18 EDT Jayne Pozo MD CHEMISTRY & BLOOD GA S ORDERABLES Performing Organization Address [facility]/ZIP Co de Phone Number [facility] [address] [place] [address] * (ABNORMAL) HEMAGRAM (05/22/2017 4:09 EDT) WBC 10.75(H) 4.0 - 10.4 K/cmm 05/22/2017 4:37 EDT [facility] RBC 3.70(L) 4.36 - 5.78 M/cmm 05/22/2017 4:37 T [facility] Hemoglobin 12.2(L) 13.8 - 17.3 gm/dl 05/22/2017 4:37 T [facility] HCT 34.1(L) 39.5 - 50.2 % 05/22/2017 4:37 [facility] MCV 92 81 - 95 fl 05/22/2017 4:37 [facility] MCH 33.0 27.6 - 33.0 pg 05/22/2017 4:37 [facility] MCHC 35.8 32.8 - 36.4 gm/dl 05/22/2017 4:37 [facility] RDW-CV 10.9 <14.2 % 05/22/2017 4:37 [facility] RDW-SD 37.2 <46.0 fl 05/22/2017 4:37 [facility] PLT 294 141 - 377 K/cmm 05/22/2017 4:37 [facility] MPV 10.7 9.5 - 12.7 fl 05/22/2017 4:37 [facility] Blood specimen (specimen) BLOOD SPECIMEN / Unknown 05/22/2017 4:09 EDT 05/22/2017 4:18 EDT Jayne Pozo MD HEMATOLOGY & PF4 ORD ERABLES [facility] [address] [place] [address] * (ABNORMAL) ELECTROLYTES (05/22/2017 4:09 EDT) Sodium 122(LL) 136 - 145 mEq/L 05/22/2017 4:54 T [facility] Potassium 4.0 3.5 - 5.0 mEq/L 05/22/2017 4:54 EDT [facility] Chloride 84(L) 96 - 110 mEq/L 05/22/2017 4:54 EDT [facility] CO2 29 22 - 32 mEq/L 05/22/2017 4:54 EDT [facility] Blood specimen (specimen) BLOOD SPECIMEN / Unknown 05/22/2017 4:09 EDT 05/22/2017 4:18 EDT Maria Antonia Zimmerman MD CHEMISTRY & BLOOD GA S ORDERABLES Performing Organization Address [facility] de Phone Number [facility] [address] [place] [address] * (ABNORMAL) ELECTROLYTES (05/22/2017 0:23 EDT) Sodium 120(LL) 136 - 145 mEq/L 05/22/2017 1:00 EDT [facility] Potassium 3.4(L) 3.5 - 5.0 mEq/L 05/22/2017 1:00 EDT [facility] Chloride 83(L) 96 - 110 mEq/L 05/22/2017 1:00 EDT [facility] CO2 31 22 - 32 mEq/L 05/22/2017 1:00 EDT [facility] Blood specimen (specimen) BLOOD SPECIMEN / Unknown 05/22/2017 0:23 EDT 05/22/2017 0:27 EDT Maria Antonia Zimmerman MD CHEMISTRY & BLOOD GA S ORDERABLES Performing Organization Address [facility] Co de Phone Number [facility] [address] [place] [address] * EKG 12-LEAD (05/21/2017 20:29 EDT) 05/21/2017 20:2 9 EDT Narrative [facility] - 05/30/2017 11:55 EDT ? [facility] ? Test Date: ?2017-05-21 Pat Name: ? DAVID MERA ?Department: ?? [place] 5 ? Room: ? MW531 Gender: ? M ?Glove Boarder: ?? [id number] : ?1950 ? Requested By: ROBLES Cabral Order Number: [id number] ? Reading MD: ?? ASHLEY CONSUELO MD ? Measurements Intervals ?Barrett ? Rate: ? 109 ?P: ? OK: ? 0 ?QRS: ?-41 QRSD: ? 179 [...] - 05/30/2017 [facility] Test Date: 2017-05-21 Pat Name: DAVID MERA Department: [place] [address] Room: [facility] Gender: M Glove Boarder: [id number] : 1950 Requested By: ROBLES Cabral Order Number: [id number] Reading MD: ASHLEY EDWARDS MD Measurements Intervals Barrett Rate: 109 P: OK: 0 QRS: -41 QRSD: 179 T: 175 QT: 391 QTc: 528 Interpretive Statements ELECTRONIC VENTRICULAR PACEMAKER ABNORMAL RHYTHM ECG Compared to ECG 05/21/2017 07:12:25 No significant changes I reviewed the tracing and have either agreed or edited the findings inthis report. Electronically Signed On 05-30-17 11:55:09 EDT by ASHLEY RAI. Seng Rand MD PhD CARDIA C ECG ORDERABLES [facility] * PORTABLE CHEST 1 VIEW [...] 136 - 145 mEq/L 05/21/2017 20:54 EDT [facility] Potassium 3.7 3.5 - 5.0 mEq/L 05/21/2017 20:54 EDT [facility] Chloride 79(L) 96 - 110 mEq/L 05/21/2017 20:54 EDT [facility] CO2 32 22 - 32 mEq/L 05/21/2017 20:54 EDT [facility] Blood specimen (specimen) BLOOD SPECIMEN / Unknown 05/21/2017 20:08 EDT 05/21/2017 20:28 EDT Maria Antonia Zimmerman MD CHEMISTRY & BLOOD GA S ORDERABLES [facility] [address] [place] [address] * PERMANENT PACEMAKER PROCEDURE (05/21/2017 19:42 EDT) Anatomical Region Laterality Modality Other 05/21/2017 19:4 2 EDT Narrative 05/21/2017 20:01 EDT *Cardiology* [address] [place] [address] Lead Revision Patient: David Mera ? Study Date: ?05/21/2017 ? Accession #: ? [id number] : ? 1950 Referring: Katia Mccallum Attending: [...] and the lead was extracted. A 7 Jamaican safety sheath was advanced over the wire [...] topical skin adhesive. IMPLANTED HARDWARE: Implanted device: 7-bites - [employer] [facility] - Serial number: [id number]. Implanted originally on 05-02-2017. LEAD PARAMETERS + + + + + Lead # ? 1 ? 1 ? 2 ? + + + + + Chamber ? RA ? RA ? RV ? + + + + + Date implanted ?? 05/02/2017 ? 05/21/2017 ? 05/02/2017 ? + + + + + Model ? [employer] [employer] Medtronic [employer] [place] [employer] 0198 ?? information ? 7726 ? Secure-59 [id number] ? + + + + + Serial number ?? [id number] ? [id number] ? [id number] ? + + + + + Location [...] Seng Rand MD - 05/21/2017 *Cardiology* [address] [place] [address] Lead Revision Patient: David Mera Study Date: [...] and the lead was extracted. A 7 Jamaican safety sheath was advanced over the wire [...] topical skin adhesive. IMPLANTED HARDWARE: Implanted device: [place] [employer] - [employer] - Serial number: [id number]. Implanted originally on 05-02-2017. LEAD PARAMETERS + + + + + Lead # 1 1 2 + + + + + Chamber RA RA RV + + + + + Date implanted 05/02/2017 05/21/2017 05/02/2017 + + + + + Model [employer] Medtronic [employer] [place] [employer] 7742 information 7740 Secure-59 [id number] + + + + + Serial number [id number] + + + + + Location RA [...] be added FREE T4,TSH 05/21/2017 18:16 EDT [facility] Number for problems [id number] 05/21/2017 18:23 EDT [facility] Accession number [id number] 05/21/2017 18:23 EDT [facility] TOPOGRAPHY UNKNOWN / Unknown 05/21/2017 18:20 EDT 05/21/2017 18:22 EDT Jayesh Garcia MD HEMATOLOGY & PF4 O RDERABLES [facility] [address] [place] [address] * CREATININE, URINE RANDOM (05/21/2017 18:20 EDT) Creatinine, Urn [place] 26.2 mg/dl 05/21/2017 21:25 EDT [facility] Urine specimen (specimen) URINE / Unknown 05/21/2017 18:20 EDT 05/21/2017 21:06 EDT Jayesh Garcia MD URINALYSIS ORDERAB LES Performing Organization Address [facility] Co de Phone Number [facility] [address] [place] [address] * PROTEIN, TOTAL, RANDOM, URINE (05/21/2017 18:20 EDT) Tot Prot,Ur Random 21 mg/dl 05/21/2017 21:25 EDT [facility] Urine specimen (specimen) URINE / Unknown 05/21/2017 18:20 EDT 05/21/2017 21:06 EDT Jayesh Garcia MD URINALYSIS ORDERAB LES Performing Organization Address [facility] de Phone Number [facility] [address] [place] [address] * ECHOCARDIOGRAM LIMITED (05/21/2017 18:19 EDT) Anatomical Region Laterality Modality Other 05/21/2017 18:1 9 EDT Narrative 05/22/2017 8:34 EDT *Interpreting Group:* *[facility]* [address] [place] [address] Date of study: 05/21/2017 Transthoracic Echocardiography M-mode, [...] stop time: ??07:33 PM. PERFORMING ?? [employer], ADOBE DEVELOPER ??Emilia Corey RDCS *PROCEDURE DATA* Procedure information: ??This study was interpreted by [facility]. Pertinent images and digital data are archived for permanent storage and are available for subsequent review. Study status: ??STAT. Transthoracic echocardiography. ??M-mode, limited 2D, limited spectral Doppler, and color Doppler. A Transthoracic Echocardiogram was performed. Scanning was performed from the parasternal, apical, and subcostal acoustic windows. Images were obtained using an [employer] 13 cardiac ultrasound machine. Image quality was [...] Rubio MD - 05/22/2017 *Interpreting Group:* *[facility]* [address] [place] [address] Date of study: 05/21/2017 Transthoracic Echocardiography M-mode, [...] Test stop time: 07:33 PM. PERFORMING [employer], ADOBE DEVELOPER Emilia Corey RDCS *PROCEDURE DATA* Procedure information: This study was interpreted by [facility]. Pertinent [...] 0.47 - 4.68 uIU/ml 05/21/2017 19:42 EDT [facility] BLOOD SPECIMEN / Unknown 05/21/2017 14:02 EDT 05/21/2017 14:12 EDT Maria Antonia Zimmerman MD CHEMISTRY & BLOOD GA S ORDERABLES [facility] [address] [place] [address] * T4 FREE (05/21/2017 14:02 EDT) T4, Free 1.5 0.8 - 2.2 ng/dl 05/21/2017 19:29 EDT [facility] BLOOD SPECIMEN / Unknown 05/21/2017 14:02 EDT 05/21/2017 14:12 EDT Maria Antonia Zimmerman MD CHEMISTRY & BLOOD GA S ORDERABLES Performing Organization Address City/[facility] Co de Phone Number [facility] [address] [place] [address] * (ABNORMAL) ELECTROLYTES (05/21/2017 14:02 EDT) Sodium 116(LL) 136 - 145 mEq/L 05/21/2017 14:53 EDT [facility] Potassium 4.1 3.5 - 5.0 mEq/L 05/21/2017 14:53 EDT [facility] Chloride 78(L) 96 - 110 mEq/L 05/21/2017 14:53 EDT [facility] CO2 28 22 - 32 mEq/L 05/21/2017 14:53 EDT [facility] Blood specimen (specimen) BLOOD SPECIMEN / Unknown 05/21/2017 14:02 EDT 05/21/2017 14:12 EDT Maria Antonia Zimmerman MD CHEMISTRY & BLOOD GA S ORDERABLES Performing Organization Address City/[facility]/ZIP Co de Phone Number [facility] [address] [place] [address] * ECHOCARDIOGRAM (05/21/2017 10:30 EDT) Anatomical Region Laterality Modality Other 05/21/2017 10:3 0 EDT Narrative 05/21/2017 10:48 EDT *Interpreting Group:* *[facility]* [address] [place] [address] Date of study: 05/21/2017 Transthoracic Echocardiography M-mode, [...] ?? [employer], Ip ORDERING ? Maria Antonia Zimemrman ADOBE DEVELOPER ??Jose G Bauer REFERRING ?Katia Mccallum *PROCEDURE DATA* Procedure information: ??The patient was identified by two identifiers. This study was interpreted by [facility]. Pertinent [...] Andrade MD - 05/21/2017 *Interpreting Group:* *[facility]* [address] [place] [address] Date of study: 05/21/2017 Transthoracic Echocardiography M-mode, [...] PERFORMING [employer], Ip ORDERING Maria Antonia Zimmerman ADOBE DEVELOPER Jose G Bauer Katelyn Doran *PROCEDURE DATA* Procedure information: The patient was identified by two identifiers. This study was interpreted by [facility]. Pertinent [...] 136 - 145 mEq/L 05/21/2017 11:15 [facility] Potassium 3.7 3.5 - 5.0 mEq/L 05/21/2017 11:15 [facility] Chloride 77(L) 96 - 110 mEq/L 05/21/2017 11:15 [facility] CO2 30 22 - 32 mEq/L 05/21/2017 11:15 [facility] Blood specimen (specimen) BLOOD SPECIMEN / Unknown 05/21/2017 9:55 EDT 05/21/2017 10:59 EDT Maria Antonai Zimmerman MD CHEMISTRY & BLOOD GA S ORDERABLES [facility] [address] [place] [address] * EKG 12-LEAD (05/21/2017 7:12 EDT) 05/21/2017 7:12 EDT Narrative [facility] - 05/23/2017 15:04 EDT ? [facility] ? Test Date: ?2017-05-21 Pat Name: ? DAVID MERA ?Department: ?? [facility] 5 ? Room: ? MW531 Gender: ? M ?Glove Boarder: ?? [id number] : ?1950 ? Requested By: PRADIP MONET Order Number: [id number] ? Martha OAKES: ?? SENG PERSON SA, MD ? Measurements Intervals ?Barrett ? Rate: ? 75 ? P: ?31 OK: ? 173 ?QRS: ?-73 QRSD: ? 183 [...] Seng Brody Sa, MD - 05/23/2017 [facility] Test Date: 2017-05-21 Pat Name: DAVID MERA Department: [place] [address] Room: [facility] Gender: M Glove Boarder: [id number] : 1950 Requested By: PRADIP MONET Order Number: [id number] Martha MD: SENG ROBLEDO Measurements Intervals Barrett Rate: 75 P: 31 OK: 173 QRS: -73 QRSD: 183 T: 174 [...] Antonia Zimmerman MD CARDIAC ECG ORDERABL ES [facility] * INPATIENT ADD-ON (05/21/2017 6:55 EDT) Tests to be added MAGNESIUM 05/21/2017 6:53 EDT [facility] Number for problems [id number] 05/21/2017 7:10 EDT [facility] Accession number [id number] 05/21/2017 7:10 EDT [facility] TOPOGRAPHY UNKNOWN / Unknown 05/21/2017 6:55 EDT 05/21/2017 7:10 EDT Maria Antonia Zimmerman MD HEMATOLOGY & PF4 ORD ERABLES Performing Organization Address City/[facility] Co de Phone Number [facility] [address] [place] [address] * INPATIENT ADD-ON (05/21/2017 6:40 EDT) Tests to be added ALT,ALK PHOS,AST,T OTAL BILI,ALBUM IN 05/21/2017 6:38 EDT [facility] Number for problems [id number] 05/21/2017 6:50 EDT [facility] Accession number [id number] 05/21/2017 6:50 EDT [facility] TOPOGRAPHY UNKNOWN / Unknown 05/21/2017 6:40 EDT 05/21/2017 6:49 EDT Maria Antonia Zimmerman MD HEMATOLOGY & PF4 ORD ERABLES [facility] [address] [place] [address] * MAGNESIUM (05/21/2017 5:57 EDT) Magnesium 1.8 1.7 - 2.8 mg/dl 05/21/2017 7:53 EDT [facility] BLOOD SPECIMEN / Unknown 05/21/2017 5:57 EDT 05/21/2017 6:09 EDT Maria Antonia Zimmerman MD CHEMISTRY & BLOOD GA S ORDERABLES Performing Organization Address City/[facility]/ZIP Co de Phone Number [facility] [address] [place] [address] * BILIRUBIN, TOTAL (05/21/2017 5:57 EDT) Bilirubin, Total 0.6 <1.4 mg/dl 05/21/2017 7:30 EDT [facility] BLOOD SPECIMEN / Unknown 05/21/2017 5:57 EDT 05/21/2017 6:09 EDT Maria Antonia Zimmerman MD CHEMISTRY & BLOOD GA S ORDERABLES Performing Organization Address [facility]/ZIP Co de Phone Number [facility] [address] [place] [address] * AST (05/21/2017 5:57 EDT) Pathologist [facility] AST 33 15 - 46 U/L 05/21/2017 7:30 EDT [facility] BLOOD SPECIMEN / Unknown 05/21/2017 5:57 EDT 05/21/2017 6:09 EDT Maria Antonia Zimmerman MD CHEMISTRY & BLOOD GA S ORDERABLES Performing Organization Address [facility] Co de Phone Number [facility] [address] [place] [address] * ALT (05/21/2017 5:57 EDT) ALT 39 21 - 72 U/L 05/21/2017 7:30 EDT [facility] BLOOD SPECIMEN / Unknown 05/21/2017 5:57 EDT 05/21/2017 6:09 EDT Maria Antonia Zimmerman MD CHEMISTRY & BLOOD GA S ORDERABLES Performing Organization Address City/[facility]/ZIP Co de Phone Number [facility] [address] [place] [address] * ALKALINE PHOSPHATASE (05/21/2017 5:57 EDT) Total Alkaline Phosphatase 81 38 - 126 U/L 05/21/2017 7:30 EDT [facility] BLOOD SPECIMEN / Unknown 05/21/2017 5:57 EDT 05/21/2017 6:09 EDT Maria Antonia Zimmerman MD CHEMISTRY & BLOOD GA S ORDERABLES Performing Organization Address [facility] Co de Phone Number [facility] [address] [place] [address] * (ABNORMAL) ALBUMIN (05/21/2017 5:57 EDT) Albumin 3.0(L) 3.4 - 4.9 g/dl 05/21/2017 7:30 EDT [facility] BLOOD SPECIMEN / Unknown 05/21/2017 5:57 EDT 05/21/2017 6:09 EDT Maria Antonia Zimmerman MD CHEMISTRY & BLOOD GA S ORDERABLES Performing Organization Address [facility] Co de Phone Number [facility] [address] [place] [address] * (ABNORMAL) ELECTROLYTES (05/21/2017 5:57 EDT) Sodium 117(LL) 136 - 145 mEq/L 05/21/2017 6:47 EDT [facility] Potassium 3.5 3.5 - 5.0 mEq/L 05/21/2017 6:47 EDT [facility] Chloride 76(L) 96 - 110 mEq/L 05/21/2017 6:47 EDT [facility] CO2 31 22 - 32 mEq/L 05/21/2017 6:47 EDT [facility] Blood specimen (specimen) BLOOD SPECIMEN / Unknown 05/21/2017 5:57 EDT 05/21/2017 6:12 EDT Maria Antonia Zimmerman MD CHEMISTRY & BLOOD GA S ORDERABLES Performing Organization Address [facility]/ZIP Co de Phone Number [facility] [address] [place] [address] * (ABNORMAL) PROTIME (05/21/2017 5:57 EDT) Pro Time 16.3(H) 10.3 - 13.4 secs 05/21/2017 6:30 EDT [facility] Comment:NOTE NEW REFERENCE R ANTONIETA OF APR 03 2017 I.N.R. 1.4(H) 0.9 - 1.1 Ratio 05/21/2017 6:30 EDT [facility] Comment: Moderate Intensity Coumadin INR = 2.0-3.0 Adjustments in anticoagulant therapy dose should be based upon the INR and NOT the Pro Time. Blood specimen (specimen) BLOOD SPECIMEN / Unknown 05/21/2017 5:57 EDT 05/21/2017 6:09 EDT Maria Antonia Zimmerman MD HEMATOLOGY & PF4 ORD ERABLES Performing Organization Address [facility] Co de Phone Number [facility] [address] [place] [address] * HIV 1/2 ANTIGEN AND ANTIBODY, 4TH GENERATION (05/21/2017 5:57 EDT) [facility] HIV 1/2 Antibody Negative Negative 05/22/19 18 11:32 EDT [facility] Comment: Fourth generation assay performed on the Tehnologii obratnyh zadachaur. If acute HIV-1 infection is suspected in a high risk patient, submit plasma specimen for HIV-1 RNA quantification test. Blood specimen (specimen) BLOOD SPECIMEN / Unknown 05/21/2017 5:57 EDT 05/21/2017 6:09 EDT Maria Antonia Zimmerman MD IMMUNOLOGY AND SEROL OGY ORDERABLES Performing Organization Address City/[facility] Co de Phone Number [facility] [address] [place] [address] * (ABNORMAL) BUN (05/21/2017 5:57 EDT) BUN 5(L) 10 - 26 mg/dl 05/21/2017 6:34 EDT [facility] Blood specimen (specimen) BLOOD SPECIMEN / Unknown 05/21/2017 5:57 EDT 05/21/2017 6:09 EDT Maria Antonia Zimmerman MD CHEMISTRY & BLOOD GA S ORDERABLES Performing Organization Address City/[facility] Co de Phone Number [facility] [address] [place] [address] * (ABNORMAL) CREATININE (05/21/2017 5:57 EDT) Creatinine 0.43(L) 0.66 - 1.25 mg/dl 05/21/2017 6:34 EDT [facility] GFR, Calculated 120 >60 ml/min/1.7 3m2 05/21/2017 6:34 EDT [facility] Comment: eGFR calculated using CKD-EPI equation for non Americans. Multiply eGFR by 1.16 for Americans. Blood specimen (specimen) BLOOD SPECIMEN / Unknown 05/21/2017 5:57 EDT 05/21/2017 6:09 EDT Maria Antonia Zimmerman MD CHEMISTRY & BLOOD GA S ORDERABLES Performing Organization Address City/[facility] Co de Phone Number [facility] [address] [place] [address] * (ABNORMAL) HEMAGRAM AND DIFFERENTIAL (05/21/2017 5:57 EDT) WBC 6.90 4.0 - 10.4 K/cmm 05/21/2017 6:30 EDT [facility] RBC 3.25(L) 4.36 - 5.78 M/cmm 05/21/2017 6:30 EDT [facility] Hemoglobin 10.9(L) 13.8 - 17.3 gm/dl 05/21/2017 6:30 EDT [facility] HCT 29.7(L) 39.5 - 50.2 % 05/21/2017 6:30 [facility] MCV 91 81 - 95 fl 05/21/2017 6:30 [facility] MCH 33.5(H) 27.6 - 33.0 pg 05/21/2017 6:30 [facility] MCHC 36.7(H) 32.8 - 36.4 gm/dl 05/21/2017 6:30 [facility] RDW-CV 10.6 <14.2 % 05/21/2017 6:30 [facility] RDW-SD 36.1 <46.0 fl 05/21/2017 6:30 [facility] PLT 266 141 - 377 K/cmm 05/21/2017 6:30 [facility] MPV 10.7 9.5 - 12.7 fl 05/21/2017 6:30 [facility] % Neutrophils 61.6 % 05/21/2017 6:30 [facility] % Lymphocytes 19.0 % 05/21/2017 6:30 [facility] % Monocytes 16.7 % 05/21/2017 6:30 [facility] % Eosinophils 1.6 % 05/21/2017 6:30 [facility] % Basophils 0.7 % 05/21/2017 6:30 [facility] % Immature Grans 0.4 % 05/21/2017 6:30 [facility] ABS Neutrophils 4.25 2.20 - 8.85 K/cmm 05/21/2017 6:30 [facility] ABS Lymphs 1.31 1.09 - 3.30 K/cmm 05/21/2017 6:30 [facility] ABS Monocytes 1.15(H) 0.1 - 0.8 K/cmm 05/21/2017 6:30 [facility] ABS Eosinophils 0.11 0.03 - 0.61 K/cmm 05/21/2017 6:30 [facility] ABS Basophils 0.05 0.01 - 0.11 K/cmm 05/21/2017 6:30 EDT [facility] ABS Immature Grans 0.03 0 - 0.06 K/cmm 05/21/2017 6:30 EDT [facility] Type of Diff: Automated 05/21/2017 6:30 EDT [facility] Blood specimen (specimen) BLOOD SPECIMEN / Unknown 05/21/2017 5:57 EDT 05/21/2017 6:09 EDT Maria Antonia Zimmerman MD PACKAGES & DNA PROBE ORDERABLES Performing Organization Address [facility] de Phone Number [facility] [address] [place] [address] * (ABNORMAL) ELECTROLYTES (05/21/2017 3:28 EDT) Sodium 116(LL) 136 - 145 mEq/L 05/21/2017 4:01 EDT [facility] Potassium 3.3(L) 3.5 - 5.0 mEq/L 05/21/2017 4:01 EDT [facility] Chloride 77(L) 96 - 110 mEq/L 05/21/2017 4:01 EDT [facility] CO2 31 22 - 32 mEq/L 05/21/2017 4:01 EDT [facility] Blood specimen (specimen) BLOOD SPECIMEN / Unknown 05/21/2017 3:28 EDT 05/21/2017 3:35 EDT Maria Antonia Zimmerman MD CHEMISTRY & BLOOD GA S ORDERABLES Performing Organization Address [facility] de Phone Number [facility] [address] [place] [address] * EKG 12-LEAD (05/21/2017 1:25 EDT) 05/21/2017 1:25 EDT Narrative [facility] - 05/23/2017 10:35 EDT ? [facility] ? Test Date: ?2017-05-21 Pat Name: ? DAVID MERA ?Department: ?? [facility] [address] ? Room: ? MW531 Gender: ? M ?Glove Boarder: ?? [id number] : ?1950 ? Requested By: PRDAIP MONET Order Number: [id number] ? Reading MD: ?? PIERRE RUBIO MD ? Measurements Intervals ?Barrett ? Rate: ? 75 ? P: ?13 OK: ? 160 ?QRS: ?-81 QRSD: ? 185 [...] - 05/23/2017 [facility] Test Date: 2017-05-21 Pat Name: DAVID MERA Department: [place] [address] Room: [facility] Gender: M Glove Boarder: [id number] : 1950 Requested By: PRADIP MONET Order Number: [id number] Martha MD: PIERRE RUBIO MD Measurements Intervals Barrett Rate: 75 P: 13 OK: 160 QRS: -81 QRSD: 185 T: 171 QT: 495 QTc: 556 Interpretive Statements SINUS RHYTHM WITH ATRIAL TRACKING and VENTRICULAR PACING Compared to ECG 05/03/2017 04:23:33 No significant changes I reviewed the tracing and have either agreed or edited the findings inthis report. Electronically Signed On 05-23-17 10:35:38 EDT by PIERRE YEBOAH. Maria Antonia Zimmerman MD CARDIAC ECG ORDERABL ES [facility] * INPATIENT ADD-ON (05/21/2017 0:00 EDT) Tests to be added URINE OSM 05/20/2017 23:58 EDT [facility] Number for problems Not Given 05/21/2017 0:02 EDT [facility] Accession number [id number] 05/21/2017 0:02 EDT [facility] TOPOGRAPHY UNKNOWN / Unknown 05/21/2017 05/21/2017 0:02 EDT Maria Antonia Zimmerman MD HEMATOLOGY & PF4 ORD ERABLES Performing Organization Address City/[facility]/ZIP Co de Phone Number [facility] [address] [place] [address] * OSMOLALITY, URINE (05/20/2017 23:45 EDT) Osmolality, Ur 251 150 - 1,150 mos/kg 05/21/2017 0:15 EDT [facility] URINE / Unknown 05/20/2017 2 3:45 EDT 05/20/2017 23:55 EDT Laly Kim MD URINALYSIS ORDERRyan PFEIFFER Performing Organization Address [facility] Co de Phone Number [facility] [address] [place] [address] * SODIUM, URINE RANDOM (05/20/2017 23:45 EDT) Sodium, Ur 18.0 mEq/L 05/21/2017 0:18 EDT [facility] Urine specimen (specimen) URINE / Unknown 05/20/2017 23:45 EDT 05/20/2017 23:55 EDT Laly Kim MD URINALYSIS ORDERRyan PFEIFFER Performing Organization Address [facility] Co de Phone Number [facility] [address] [place] [address] * CREATININE, URINE RANDOM (05/20/2017 23:45 EDT) Creatinine, Urn [place] 43.1 mg/dl 05/21/2017 0:18 EDT [facility] Urine specimen (specimen) URINE / Unknown 05/20/2017 23:45 EDT 05/20/2017 23:55 EDT Laly Kim MD URINALYSIS ORDERRyan PFEIFFER Performing Organization Address [facility]/ZIP Co de Phone Number [facility] [address] [place] [address] * POCT US CARDIAC (05/20/2017 22:45 EDT) Anatomical Region Laterality Modality Other 05/20/2017 22:4 5 EDT 05/20/2017 23:51 EDT Narrative 05/20/2017 23:51 EDT [facility] - Ultrasound Exam Date: 05/20/2017 Exam Type: POCT US CARDIAC Cardiovascular Radiologic Technologist: Laly Kim MD Attending: Laly Kim MD [...] exam was performed and interpreted by the REPLACED BY [facility] ED Staff Procedure Note Laly Kim MD - 05/20/2017 [facility] - Ultrasound Exam Date: 05/20/2017 Exam Type: POCT US CARDIAC Cardiovascular Radiologic Technologist: Laly Kim MD Attending: Laly Kim MD [...] exam was performed and interpreted by the [facility] ED Staff Laly Kim MD IMG POCT US ORDER [place] * (ABNORMAL) BASIC METABOLIC PANEL (BMP) (05/20/2017 22:40 EDT) Sodium 116(LL) 136 - 145 mEq/L 05/20/2017 23:14 [facility] Potassium 3.6 3.5 - 5.0 mEq/L 05/20/2017 23:14 [facility] Chloride 74(L) 96 - 110 mEq/L 05/20/2017 23:14 [facility] CO2 32 22 - 32 mEq/L 05/20/2017 23:14 [facility] BUN 6(L) 10 - 26 mg/dl 05/20/2017 23:14 [facility] Creatinine 0.44(L) 0.66 - 1.25 mg/dl 05/20/2017 23:14 [facility] GFR, Calculated 119 >60 ml/min/1.7 3m2 05/20/2017 23:14 [facility] Comment: eGFR calculated using CKD-EPI equation for non Americans. Multiply eGFR by 1.16 for Americans. Calcium 8.7 8.5 - 10.5 mg/dl 05/20/2017 23:14 [facility] Calculated Calcium 9.2 8.5 - 10.5 mg/dl 05/20/2017 23:14 [facility] Glucose, Serum 108(H) 70 - 100 mg/dl 05/20/2017 23:14 [facility] Fasting? Unknown 05/20/2017 23:14 [facility] Blood specimen (specimen) BLOOD SPECIMEN / Unknown 05/20/2017 22:40 EDT 05/20/2017 22:58 EDT Laly Kim MD CHEMISTRY & BLOOD GAS ORDERABLES [facility] [address] [place] [address] documented in this encounter Visit Diagnoses Diagnosis [...] 05/02 documented in this encounter Care Teams Pad Assembler Relationship Specialty Start Date End Date Katia Stone, PABijalC [address] [place] [phone] PCP - General 05/02/17 documented as of this encounter
--- OUTSIDE RECORDS SUMMARY | 2023-12-24 18:45 | XMS_ITS | Clinical Summary ---
Author Organization [facility] Address [facility] [place] [address] Care Team Providers Care Scooping Machine Tender Name Role Phone Katia Stone Primary Care [...] Date Diagnosed Date Pacemaker - dual lead [employer] pacemake r 09/24/2022 Overview (09/24/2022): Employee Welfare Manager Model # Serial # Generator (New) Knowrom [id number] Atrial Lead (New) Knowrom [id number] RV Lead [employer] [id number] 09/23/2022 - RA lead fx and RV lead with insulation breach - both capped and abandoned with new atrial and ventricular leads Placed as well as PG replacement for DIONICIO Complete heart block 09/23/2022 Encounters Date Type Department Care Team Description 12/16/2023 1:30 PM EDT Telehealth [place] [address] Telehealth, Neurology 12/15/2023 10:20 PM EDT Ancillary Procedure [facility] [place] [address] Jack Gutierrez MD 12/15/2023 10:15 PM EDT Ancillary Procedure [facility] [place] [address] Jack Gutierrez MD 11/06/2023 10:00 AM EDT - 11/06/2023 11:59 PM EDT Hospital Encounter Non-[place] [address] Discharge Disposition: Home from Last 3 Months [...] EST Hospital Encounter Non-[place] [address] Arrived Health Maintenance Due Date Last Done [...] series) 11/02/2023 Medical Devices Implanted Type Area Employee Welfare Manager Device Identifier Shelf Expiration Date Model / Serial / Lot Bsx: 7841: [id number] Implanted: by Dylan Story MD (Quantity not on file) Lead Heart [employer] 7841 / [id number] / Bsx: 7842: [id number] Implanted: by Dylan Story MD (Quantity not on file) Lead Heart [employer] 7842 / [id number] / Bsx: L311: [id number]/24/2 [id number] Implanted: by Dylan Story MD (Quantity not on file) Pacemaker Chest Wall [employer] [id number] / [id number] / Procedures Procedure Name Priority Date/Time Associated Diagnosis Comments FILM LIBRARY STORAGE ONLY CT HEAD AND SPINE Routine 12/15/2023 10:14 PM EDT FILM LIBRARY STORAGE ONLY CT HEAD Routine 12/15/2023 10:11 PM EDT from Last 3 Months Results * Film Library- Storage Only CT Head And Spine (12/15/2023 10:14 PM EDT) Narrative [facility] - 12/15/2023 10:14 PM EDT This exam is auto-finalizing. It's purpose is for storage only. Jack Gutierrez MD [facility] FILM LIBRARY O RDERABLES Performing Organization Address [facility]/ZIP Co de Phone Number [place], [place] * Film Library- Storage Only CT Head (12/15/2023 10:11 PM EDT) Narrative [facility] - 12/15/2023 10:11 PM EDT This exam is auto-finalizing. It's purpose is for storage only. Jack Gutierrez MD IMG FILM LIBRARY O RDERABLES [place], [place] from Last 3 Months Advance Directives [...] full resusitation during periprocedureal period Care Teams Scooping Machine Tender Relationship Specialty Start Date End Date Katia Stone PA [address] [place] [phone] PCP - General General Internal Medicine 11/10/18
--- OUTSIDE RECORDS SUMMARY | 2023-12-24 18:46 | XMS_ITS | Encounter Summary ---
Author Organization [facility] Address [facility] [address] Care Team Providers Care Medical Interpreter Name Role Phone Katia Stone Primary Care Provider [phone] Encounter Details Date Type Department Care Team (Latest Contact Info) Description 08/13/2022 10:00 AM EDT - 08/13/2022 11:59 PM EDT Hospital Encounter Non-Invasive [place] [address] Discharge Disposition: Home Social History Tobacco Use [...] AM EST Hospital Encounter Non-Invasive [place] [address] Arrived documented as of this encounter Procedures [...] filedocumented in this encounter Care Teams Medical Interpreter Relationship Specialty Start Date End Date Katia Stone PA [address] [place] [address] PCP - General General Internal Medicine 11/10/18 documented as of this encounter
--- OUTSIDE RECORDS SUMMARY | 2023-12-24 18:46 | XMS_ITS | Encounter Summary ---
Author Organization [facility] Address [facility] [place] [address] Care Team Providers Care Molybdenum Steamer Operator Name Role Phone Katia Stone Primary Care Provider Encounter Details Date Type Department Care Team (Latest Contact Info) Description 08/14/2021 - 08/14/2021 11:59 PM EDT Hospital Encounter Non-Invasive [place] [phone] Dylan Story MD [facility] [place]LECTR[place] [address] CHB (complete heart block) Discharge Disposition: Home [...] AM EST Hospital Encounter Non-Invasive [place] [phone] Arrived documented as of this encounter Procedures [...] complete documented in this encounter Care Teams Molybdenum Steamer Operator Relationship Specialty Start Date End Date Katia Stone PA [address] [place] [address] PCP - General General Internal Medicine 11/10/18 documented as of this encounter
--- OUTSIDE RECORDS SUMMARY | 2023-12-24 18:46 | XMS_ITS | Encounter Summary ---
Author Organization [facility] Address [facility] [place] [address] Care Team Providers Care Entry Level Name Role Phone Katia Stone Primary Care Provider Encounter Details Date Type Department Care Team (Latest Contact Info) Description 05/10/2023 10:00 AM EST - 05/10/2023 11:59 PM [facility] Hospital Encounter [place] [address] Discharge Disposition: Home Social History Tobacco Use [...] AM EST Hospital Encounter Non-[place] [address] Arrived documented as of this encounter Procedures [...] on filedocumented in this encounter Care Teams Entry Level Relationship Specialty Start Date End Date Katia Stone PA [address] [facility] [place] [address] PCP - General General Internal Medicine 11/10/18 documented as of this encounter
--- OUTSIDE RECORDS SUMMARY | 2023-12-24 18:46 | XMS_ITS | Encounter Summary ---
Author Organization [facility] Address [facility] [place] [address] Care Team Providers Care Shop Mechanic Name Role Phone Katia Stone Primary Care Provider Encounter Details Date Type Department Care Team (Latest Contact Info) Description 02/09/2023 10:00 AM EST - 02/09/2023 11:59 PM [facility] Hospital Encounter Non-Invasive [place] [address] Discharge Disposition: Home Social History Tobacco Use [...] AM EST Hospital Encounter Non-Invasive [place] [address] Arrived documented as of this encounter Procedures [...] on filedocumented in this encounter Care Teams Shop Mechanic Relationship Specialty Start Date End Date Katia Stone PA [address] [place] [phone] PCP - General General Internal Medicine 11/10/18 documented as of this encounter
--- OUTSIDE RECORDS SUMMARY | 2023-12-24 18:46 | XMS_ITS | Encounter Summary ---
Author Organization [facility] Address [facility] [place] [address] Care Team Providers Care Treating Engineer Name Role Phone Katia Stone Primary Care Provider [phone] Encounter Details Date Type Department Care Team (Late st Contact Info) Description 04/04/2022 Notes Only Cardiology at [address] [phone] Humberto Ashraf PA [facility] [place] [address] Social History Tobacco Use Types Packs/Day Years [...] pacing threshold; afib/flutter Transmission Date: 03/28/2022 Device Hot Wort Settler and Type: [employer] L111 Battery Status: estimated longevity 6 months Atrial lead status: normal sensing and impedance; elevated pacing threshold(now 4.0V @ 0.4ms); known partial fx Right ventricular lead status: good Left ventricular lead status: n/a Pacin % Atrial pacing 100 % Ventricular pacing Events/Arrhythmias noted since last reset: New acutely elevated RA pacing threshold Impression: 71yo man with dual lead [employer] 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 Story. Now as he approaches [facility], he should be evaluated for lead replacement, +/-extraction of the fractured lead. I will request follow up to be scheduled. GIRISH Marin, MPAS, DFAAPA documented in this encounter Plan of Treatment Upcoming Encounters Date Type Department Care Team (Late st Contact Info) Description 02/04/2024 10:00 AM EST Hospital Encounter Non-[place] [address] Arrived documented as of this encounter Visit Diagnoses Not on filedocumented in this encounter Care Teams Treating Engineer Relationship Specialty Start Date End Date Katia Stone PA [address] [facility] [place] [facility] [place] [phone] PCP - General General Internal Medicine 11/10/18 documented as of this encounter
--- OUTSIDE RECORDS SUMMARY | 2023-12-24 18:46 | XMS_ITS | Encounter Summary ---
[place] [address] Care Team Providers Care Director Pediatric Name Role Phone Katia Stone Primary Care Provider [phone] Encounter Details Date Type Department Care Team (Late st Contact Info) Description 09/18/2022 Telephone Cardiology at [address] [phone] Zee Hyde Social History Tobacco Use Types [...] she will schedule him for those at [facility]. documented in this encounter Plan of Treatment Upcoming Encounters Date Type Department Care Team (Late st Contact Info) Description 02/04/2024 10:00 AM [facility] Hospital Encounter Non-Invasive [place] [address] Arrived documented as of this encounter Visit Diagnoses Not on filedocumented in this encounter Care Teams Director Pediatric Relationship Specialty Start Date End Date Katia Stone PA [address] [place] [phone] PCP - General General Internal Medicine 11/10/18 documented as of this encounter
--- OUTSIDE RECORDS SUMMARY | 2023-12-24 18:46 | XMS_ITS | Encounter Summary ---
Author Organization [facility] [place] [address] Care Team Providers Care Card Grinder Helper Name Role Phone Katia Stone Primary Care Provider [phone] Reason for Referral * Diagnostic Test (Routine) - Closed Specialty Diagnoses / Procedures Referred By Contac t Referred To Contact Radiology Diagnoses Abdominal visceral abscess Procedures CT Guided Drain Peritoneal Virginia Price [address] [place] [address] [facility] [place] [address] Referral ID Status Reason Start Date Expiration Date V isits Requested Visits Authorized [id number] Closed Specialty Service Requested 07/09/2021 01/09/2023 1 1 Reason for Visit * Diagnostic Test (Routine) - Closed Specialty Diagnoses / Procedures Referred By Contac t Referred To Contact Radiology Diagnoses Abdominal visceral abscess Procedures CT Guided Drain Peritoneal Virginia Price [address] [place] [address] [facility] [place] [address] Referral ID Status Reason Start Date Expiration Date V isits Requested Visits Authorized [id number] Closed Specialty Service Requested 07/09/2021 01/09/2023 1 1 Encounter Details Date Type Department Care Team (Latest Contact Info) Description 07/10/2021 9:19 AM EDT - 07/10/2021 11:59 PM EDT Hospital [place] [address] Virginia Price, DO [address] [place] [address] Abdominal visceral abscess (Primary Dx) Discharge Disposition: [...] is during regular office hours, please call [phone]. If it is after regular office hours, or on weekends or holidays, please call [phone] and ask to speak to the Production Honing Machine Operator parole or probation officer for Interventional Radiology. XX You have received [...] of : 1950 AGE: 70 y.o. Address: [place] [address] (home) Mobile: No relevant phone numbers on file. Referring Provider: Virginia Price REASON FOR VISIT: Order Questions Answers Where will study be performed? [facility] Radiology [120] Is the patient on [...] Questions Answers Where will study be performed? [facility] Radiology [120] Is the patient on [...] Questions Answers Where will study be performed? [facility] Radiology [120] Is the patient on [...] culture Complications: No immediate Plan/Disposition: Return to [facility] GB fossa drain to bulb suction [...] AM EST Hospital Encounter Non[place] [phone] Arrived documented as of this encounter Procedures [...] EDT 1. ??Percutaneous placement of a 10 Monegasque drainage catheter into gallbladder fossa abscess/biloma, yielding 120 mL of cloudy brown fluid. 2. ??Left-sided 10 Monegasque chest tube placement, yielding 30 mL of cloudy brown. Plan: 1. ??To IR recovery then transfer back to [facility]. 2. ??Awaiting return call from requesting [...] who have questions please contact the health day care attendant that requested your imaging first. ? Narrative [...] IMPRESSION 1. Percutaneous placement of a 10 Monegasque drainage catheter intogallbladder fossa abscess/biloma, yielding 120 mL of cloudy brown fluid. 2. Left-sided 10 Monegasque chest tube placement, yielding 30 mL of cloudybrown. Plan: 1. To IR recovery then transfer back to [facility]. 2. Awaiting return call from requesting [...] patients who have questions please contactthe health day care attendant that requested your imaging first. Virginia Price DO IMG CT ORDERABLES * CT Guided Drain Chest Tube/Pleural Drain (07/10/2021 12:19 PM EDT) Anatomical Region Laterality Modality Computed Tomogra phy Impressions 07/11/2021 10:21 AM EDT 1. ??Percutaneous placement of a 10 Monegasque drainage catheter into gallbladder fossa abscess/biloma, yielding 120 mL of cloudy brown fluid. 2. ??Left-sided 10 Monegasque chest tube placement, yielding 30 mL of cloudy brown. Plan: 1. ??To IR recovery then transfer back to [facility]. 2. ??Awaiting return call from requesting [...] who have questions please contact the health day care attendant that requested your imaging first. ? Narrative [...] IMPRESSION 1. Percutaneous placement of a 10 Monegasque drainage catheter intogallbladder fossa abscess/biloma, yielding 120 mL of cloudy brown fluid. 2. Left-sided 10 Monegasque chest tube placement, yielding 30 mL of cloudybrown. Plan: 1. To recovery then transfer back to [facility]. 2. Awaiting return call from requesting [...] patients who have questions please contactthe health day care attendant that requested your imaging first. Virginia Price DO IMG CT ORDERABLES * Anaerobic Culture (07/10/2021 11:45 AM EDT) Anaerobic Culture No anaerobic organisms isolated [facility] Fluid 07/10/2021 11:4 5 AM EDT 07/10/2021 12:24 PM EDT Comment:Left chest tube plac ement. Narrative Resulting Agency Comment Spec In Lab Vick Boss MD MICROBIOLOGY - GEN ERAL ORDERABLES Performing Organization Address City/[facility]/ZIP Co de Phone Number [facility] [place] [address] * Body Fluid Culture, Aerobic (07/10/2021 11:45 AM EDT) Body Fluid Culture No growth [facility] Gram Stain Cytocentrifuge Gram Stain performed No Neutrophils seen. No microorganisms seen. [facility] Fluid 07/10/2021 11:4 5 AM EDT 07/10/2021 12:24 PM EDT Comment:Left chest tube plac ement. Narrative Resulting Agency Comment Spec In Lab Vick Boss MD MICROBIOLOGY - GEN ERAL ORDERABLES Performing Organization Address City/[facility]/ZIP Co de Phone Number [facility] [place] [address] * Anaerobic Culture (07/10/2021 11:20 AM EDT) Anaerobic Culture No anaerobic organisms isolated [facility] Abdominal Fluid 07/10/2021 1 1:20 AM EDT 07/10/2021 12:25 PM EDT Comment:70 y.o. male with le ukocytosis and collection on CT following cholecystectomy presenting to Interventional Radiology for drainage Narrative Resulting Agency Comment Spec In Lab Vick Boss MD MICROBIOLOGY - GEN ERAL ORDERABLES [facility] [place] [address] * (ABNORMAL) Body Fluid Culture, Aerobic (07/10/2021 11:20 AM EDT) Body Fluid Culture Few Escherichia coli(A) [facility] Gram Stain Cytocentrifuge Gram Stain performed Neutrophils seen Few Gram Negative Rods (A) [facility] Organism Escherichia coli(A) [facility] Abdominal Fluid 07/10/2021 1 [...] Boss MD MICROBIOLOGY - GEN ERAL ORDERABLES [facility] [place] [address] documented in this encounter Visit Diagnoses Diagnosis [...] mg documented in this encounter Care Teams Card Grinder Helper Relationship Specialty Start Date End Date Katia Stone PA [address] [place] [phone] PCP - General General Internal Medicine 11/10/18 documented as of this encounter
--- OUTSIDE RECORDS SUMMARY | 2023-12-24 18:46 | XMS_ITS | Encounter Summary ---
Author Organization [facility] Address [facility] [place] [address] Care Team Providers Care Individual Small Group Instructor Name Role Phone Katia Stone Primary Care Provider Encounter Details Date Type Department Care Team (Latest Contact Info) Description 06/26/2021 3:30 PM EDT Ancillary Procedure Radiology Library at [facility] [place] [address] Mykel Stern [facility] [place] [address] Gallbladder abscess Social History Tobacco Use Types [...] PRE-PROCEDURE NOTE: PCP: GIRISH Johnson Referring Provider: [facility] General Surgery: Virginia Price DO [...] History was communicated by Dr. Price from [facility]. They are requesting a gallbladder [...] and left basilar pleural collection presenting to [facility] for ct guided abdominal and left pleural drian placement. Plan: Planned procedure: CT guided RUQ abdominal drain and left chest tube placement Labs to be performed day of procedure: Hemogram; INR; Coags (need to be faxed from [facility]) Sedation: Moderate (Conscious sedation) Prophylactic [...] AM EST Hospital Encounter Non-[place] [address] Arrived documented as of this encounter Procedures Procedure Name Priority Date/Time Associated Diagnosis Comments FILM LIBRARY STORAGE ONLY CT ABDOMEN AND PELVIS Routine 06/26/2021 3:25 PM EDT documented in this encounter Results * Film Library- Storage Only CT Abdomen & Pelvis (06/26/2021 3:25 PM EDT) Narrative [facility] - 06/26/2021 3:25 PM EDT This exam is auto-finalizing. It's purpose is for storage only. Mykel Stern DO IMShaun FILM LIBRARY ORD ERABLES Performing Organization Address City/State/[facility] Co de Phone Number [place], [place] documented in this encounter Visit Diagnoses Diagnosis Gallbladder abscess Acute cholecystitis documented in this encounter Care Teams Individual Small Group Instructor Relationship Specialty Start Date End Date Katia Stone PA [facility] [address] [place] [address] PCP - General General Internal Medicine 11/10/18 documented as of this encounter
--- OUTSIDE RECORDS SUMMARY | 2023-12-24 18:46 | XMS_ITS | Encounter Summary ---
[place] [address] Care Team Providers Care Forward Air Controller/Air Officer Name Role Phone Katia Stone Primary Care Provider Encounter Details Date Type Department Care Team (Late st Contact Info) Description 11/25/2019 Telephone Cardiology at [address] [phone] Gayla Ochoa, RN Social History Tobacco Use [...] is requesting acceptance of a referral to [facility] Cardiology for Tim. States that Tim normally [...] AM EST Hospital Encounter Non[place] [address] Arrived documented as of this encounter Visit Diagnoses Not on filedocumented in this encounter Care Teams Forward Air Controller/Air Officer Relationship Specialty Start Date End Date Katia Stone PA [address] [place] [address] PCP - General General Internal Medicine 11/10/18 documented as of this encounter
--- OUTSIDE RECORDS SUMMARY | 2023-12-24 18:46 | XMS_ITS | Encounter Summary ---
Author Organization [facility] [place] [address] Care Team Providers Care Classifier Operator Name Role Phone Katia Stone Primary Care Provider [phone] Reason for Visit * Reason Onset Date Comments Other 09/24/2022 Cardiac Device I mplant Teaching/Education Encounter Details Date Type Department Care Team (Late st Contact Info) Description 09/24/2022 Notes Only Cardiology at [address] [address] Magi Lowery Other (Cardiac Device Implant Teaching/Education) Social History Tobacco Use Types Packs/Day Years Used Date Smoking Tobacco: Never Smokeless Tobacco: Never Alcohol Use Standard Drinks/Week Comments Yes 14 (1 standard drink = 0.6 oz pu re alcohol) [facility] Inpatient Questions Answer Date Recorded Does Anyone [...] to call the Cardiac Device Clinic at [phone] with any questions. Plan: Post op check: [...] AM EST Hospital Encounter [place] [address] Arrived documented as of this encounter Visit Diagnoses Not on filedocumented in this encounter Care Teams Classifier Operator Relationship Specialty Start Date End Date Katia Stone PA [address] [facility] [place] [facility] [place] [phone] PCP - General General Internal Medicine 11/10/18 documented as of this encounter
--- OUTSIDE RECORDS SUMMARY | 2023-12-24 18:46 | XMS_ITS | Encounter Summary ---
Author Organization [facility] [place] [address] Care Team Providers Care Park Maintenance Technician Name Role Phone Katia Stone Primary Care Provider Encounter Details Date Type Department Care Team (Latest Contact Info) Description 05/15/2022 10:00 AM EDT - 05/15/2022 11:59 PM EDT Hospital Encounter [place] [address] Discharge Disposition: Home Social History Tobacco Use [...] AM EST Hospital Encounter Non[place] [address] Arrived documented as of this encounter Procedures [...] filedocumented in this encounter Care Teams Park Maintenance Technician Relationship Specialty Start Date End Date Katia Stone PA [address] [place] [phone] PCP - General General Internal Medicine 11/10/18 documented as of this encounter
--- OUTSIDE RECORDS SUMMARY | 2023-12-24 18:46 | XMS_ITS | Encounter Summary ---
Author Organization [facility] [place] [address] Care Team Providers Care Hotel Controller Name Role Phone Katia Stone Primary Care Provider Encounter Details Date Type Department Care Team (Late st Contact Info) Description 07/23/2021 Notes [place] [phone] Mykel Stern, [facility] [place] [address] Social History Tobacco Use Types Packs/Day Years [...] Chest Tube/Pleural Drain 07/10/2021 Vick Boss MD [facility] RAD CT SCAN ??? CT PERITONEAL DRAINAGE 07/10/2021 CT Guided Drain Peritoneal 07/10/2021 Vick Boss MD [facility] RAD CT SCAN Medications: Allergies: Patient [...] st Contact Info) Description 02/04/2024 10:00 AM [facility] Hospital Encounter [place] [address] Arrived documented as of this encounter Visit Diagnoses Not on filedocumented in this encounter Care Teams Hotel Controller Relationship Specialty Start Date End Date Katia Stone PA [facility] [address] [place] [address] PCP - General General Internal Medicine 11/10/18 documented as of this encounter
--- OUTSIDE RECORDS SUMMARY | 2023-12-24 18:46 | XMS_ITS | Encounter Summary ---
Author Organization [facility] Address [facility] [place] [address] Care Team Providers Care Furnace Erector Name Role Phone Katia Stone Primary Care Provider [phone] Encounter Details Date Type Department Care Team (Latest Contact Info) Description 11/14/2021 - 11/14/2021 11:59 PM EDT Hospital Encounter Non[place] [phone] Radha Hammond MD [facility] [place] [address] CHB (complete heart block) Discharge Disposition: Home [...] AM EST Hospital Encounter Non-[place] [address] Arrived documented as of this encounter Procedures [...] pdf document Date of transmission: 11/14/21 Device stator winder: BSC Device type: DC PM Presenting rhythm: apvp AP 56% SCIENCE TEACHER 100% - no LV functional assessment in [...] complete documented in this encounter Care Teams Furnace Erector Relationship Specialty Start Date End Date Katia Stone PA [address] [place] [phone] PCP - General General Internal Medicine 11/10/18 documented as of this encounter
--- OUTSIDE RECORDS SUMMARY | 2023-12-24 18:46 | XMS_ITS | Encounter Summary ---
Author Organization [facility] [place] [address] Care Team Providers Care Hall Clerk Name Role Phone Katia Stone Primary Care Provider [phone] Encounter Details Date Type Department Care Team (Late st Contact Info) Description 02/13/2022 Orders Only Cardiology at [address] [phone] Dylan Story MD [facility] [place] [address] Social History Tobacco Use Types Packs/Day Years [...] AM EST Hospital Encounter Non-Invasive [place] [address] Arrived documented as of this encounter Procedures [...] on filedocumented in this encounter Care Teams Hall Clerk Relationship Specialty Start Date End Date Katia Stone PA [address] [facility] [place] [address] PCP - General General Internal Medicine 11/10/18 documented as of this encounter
--- OUTSIDE RECORDS SUMMARY | 2023-12-24 18:46 | XMS_ITS | Encounter Summary ---
Author Organization [facility] Address [facility] [place] [address] Care Team Providers Care Grader Marker Name Role Phone Katia Stone Primary Care Provider [phone] Encounter Details Date Type Department Care Team (Latest Contact Info) Description 02/09/2023 10:00 AM [facility] Hospital Encounter [place] [address] Discharge Disposition: Home Social History Tobacco Use [...] AM EST Hospital Encounter Non-[place] [address] Arrived documented as of this encounter Visit Diagnoses Not on filedocumented in this encounter Care Teams Grader Marker Relationship Specialty Start Date End Date Katia Stone PA [facility] [address] [place] [phone] PCP - General General Internal Medicine 11/10/18 documented as of this encounter
--- OUTSIDE RECORDS SUMMARY | 2023-12-24 18:46 | XMS_ITS | Encounter Summary ---
Author Organization [facility] Address [facility] [place] [address] Care Team Providers Care Financial Writer Name Role Phone Katia Stone Primary Care Provider [phone] Encounter Details Date Type Department Care Team (Latest Contact Info) Description 08/08/2023 10:00 AM EDT - 08/08/2023 11:59 PM EDT Hospital Encounter Non-Invasive [place]iology [place] [address] Discharge Disposition: Home Social History Tobacco Use [...] MEDICAL CENTER Hospital Encounter Non-Invasive [place] [address] Arrived documented as of this encounter Procedures [...] filedocumented in this encounter Care Teams Financial Writer Relationship Specialty Start Date End Date Katia Stone PA [address] [place] [phone] PCP - General General Internal Medicine 11/10/18 documented as of this encounter
--- OUTSIDE RECORDS SUMMARY | 2023-12-24 18:46 | XMS_ITS | Encounter Summary ---
Author Organization [facility] Address [facility] [place] [address] Care Team Providers Care Exerciser Name Role Phone Katia Stone Primary Care Provider [phone] Encounter Details Date Type Department Care Team (Late st Contact Info) Description 07/09/2021 1:35 PM EDT Ancillary Procedure Radiology Library at [facility] [place] [phone] Nolan Beth MD [facility] [place] [address] Social History Tobacco Use Types Packs/Day Years [...] AM EST Hospital Encounter Non-[place] [address] Arrived documented as of this encounter Procedures [...] MD IMG FILM LIBRARY OR DERABLES [facility] [place], [place] documented in this encounter Visit Diagnoses Not on filedocumented in this encounter Care Teams Exerciser Relationship Specialty Start Date End Date Katia Stone PA [address] [place] [phone] PCP - General General Internal Medicine 11/10/18 documented as of this encounter
--- OUTSIDE RECORDS SUMMARY | 2023-12-24 18:46 | XMS_ITS | Encounter Summary ---
Author Organization [facility] Address [facility] [place] [address] Care Team Providers Care Psychiatric Aide Name Role Phone Katia Stone Primary Care Provider [phone] Reason for Visit * Auth/Cert (Routine) Specialty [...] OR PM) (WRVU 4.92) Dylan Story MD [facility] [place] [address] [facility] Referral ID Status Reason Start Date Expiration Date Visits Re quested Visits Authorized [id number] 1 1 Encounter Details Date Type Department Care Team (Latest Contact Info) Description 09/23/2022 11:49 AM EDT - 09/24/2022 1:21 PM EDT Hospital Encounter Heart and Vascular Unit Level 4 [place] [phone] Dylan Story MD [facility] [place] [address] Pacemaker at end of battery life; Pacemaker [...] Tim Mera Patient Age: 71 y.o. Language: Uruguayan Race: White Ethnicity: Not nor Admit date: 09/23/2022 Discharge date and time: 09/24/2022 1315 Attending Physician: Dylan Story MD Discharge Physician: Dylan Story MD Follow-up Recommendations for Providers: NEW - replaced [employer] dual lead pacemaker with new atrial and ventricular pacing leads. Old leads capped and abandoned. Stable for discharge to home Needs non-emergent ambulance for transport back to [facility] in [place], [place]. Outpatient follow up scheduled at [facility] for 10 post implant check. Inpatient Provider Contact Information: Cardiac Electrophysiology [phone], option #3 Discharge Diagnoses (Hospital Problems) and Secondary Diagnoses (Chronic Problems): Active Hospital Problems Diagnosis Complete heart block Pacemaker - dual lead [employer] pacemaker Resolved Hospital Problems No resolved [...] RV pacing leads were implanted. A new [employer] pacemaker pulse generator was also implanted. [...] 106 (L): Data is abnormally low Treatments: Wound Treatment Rn Model # Serial # Generator (New) [employer] [id number] Atrial Lead (New) [employer] 7841 [id number] RV Lead [employer] 7742 491783 Old RA lead capped and abandoned Old RV lead found to have insulation deterioration and this lead was also capped and abandoned New RA and RV leads placed [employer] pulse generator implanted DDD @ 60/120 Discharge [...] by mouth 3 times daily. Generic drug: tcrhzp-onsgqccm-nxvduav DR 1 capsule Refills: 0 fentaNYL 12 [...] incision. Make sure to use a clothing consultant (such as a towel) in between the [...] F. The office scheduling phone number is [phone]. ARM MOVEMENT RESTRICTIONS POST-IMPLANT - Do not [...] please call the Cardiac ElectrophysiologyTriage Nurse at [phone], option 3. General Instructions Future Appointments and Orders Future Appointments and Orders Future Appointments Provider Department Dept Phone 10/04/2022 11:00 AM Maite Lozano RN Cardiology at [facility] Arrive at: Direct Service Worker Area [phone] 12/27/2022 11:00 AM Maite Lozano RN Cardiology at [facility] Arrive at: Direct Service Worker Area [phone] Discharge References/Attachments None Dylan Story MD [facility] [...] incision. Make sure to use a clothing consultant (such as a towel) in between the [...] F. The office scheduling phone number is [phone]. ARM MOVEMENT RESTRICTIONS POST-IMPLANT - Do not [...] please call the Cardiac ElectrophysiologyTriage Nurse at [phone], option 3. documented in this encounter Medications [...] General Information Tim Mera 1950 Medicare Number: [id number] Transport Date: 09/24/22 (PCS is valid for round trips on this date and for all repetitive trips in the 60-day range as noted below.) Origin: [place] [address] Destination: [facility] [address] [place] [address] Is the patient's stay covered [...] is contraindicated by the patient's condition: medical billing coordinator required. Patient unable to tolerate seated position [...] van (i.e. seated during transport, without medical billing coordinator or monitoring?): No 4) In addition to complete questions 1-3 above, please select any of the following conditions that apply: *Note: supporting documentation for any boxes checked must be maintained in the patient's medical records Moderate/severe pain on movement game room attendant required Section III - Signature of [...] 09/24/2022 10:54 AM EDT Office of Care Management/Hospice Aide Patient Name: Tim Mera : 1950 Patient is returning to a SNF bed at [facility]. [facility] arranged for a 1300hrs transport. Ambulance will need: Medicare ambulance form completed and signed (MD or Spring Former RN/FIELD OBSERVER) Copy of patient demographics [place] D[place]/DNI order, if active No MD to MD report necessary. Please call Nursing Report to , ask for conservation educator. Info to accompany patient: Copies of Medication Administration Records and IV sheets for past 10 days. Plan: Hospice Aide will be available to the patient and Spring Former-RN and/or Social Workerfor further assistance. Patient will be discharged to: [facility] [address] [place] [address] Holly Urbina * Humberto Ashraf PA - 09/24/2022 10:31 AM EDT Inpatient Cardiac Electrophysiology Discharge Day Note Patient Name: Tim Mera Service: EP Responsible Attending: Dylan Story MD Reason for continued hospitalization: POD#1 pacemaker pulse generator and lead replacement Active Problems: Active Hospital Problems Diagnosis Complete heart block Pacemaker - dual lead [employer] pacemaker Resolved Hospital Problems No resolved [...] RV pacing leads were implanted. A new [employer] pacemaker pulse generator was also implanted. [...] Oral Daily loratadine 10 mg Oral Daily tbbbbn-eduotzjy-cizuyef DR 1 capsule Oral TID magnesium oxide [...] 0.00 - 0.04 x10(3)/mcL Pertinent Radiographic/Diagnostic Results: Wound Treatment Rn Model # Serial # Generator (New) Nexopia [id number] Atrial Lead (New) Nexopia 7841 [id number] RV Lead Nexopia 7742 838683 Old RA lead capped and abandoned Old RV lead found to have insulation deterioration and this lead was also capped and abandoned New RA and RV leads placed [employer] pulse generator implanted DDD @ 60/120 P wave: 2.2mV R wave: none above 30 Atrial impedance: 581 ohms RV impedance:777 ohms RA threshold: 0.7V @0.4ms RV threshold: 0.4V @ 0.4ms AP 38%; PRE CODER 100% No events Estimated battery longevity >8 years CXR: 09/24/2022 Left sided dual lead pacemaker 4 leads; two abandoned No pneumothorax +small bilateral pleural effusions Assessment: Tim Mera is a 71 y.o. male withhx of complete heart block, s/p dual lead [id number] at [facility], now with cell depletion, fractured atrial lead and unexpected insulation deteriorationof RV lead resulting placement of new RA and RV pacing leads along with a new pulse generator. Device function is excellent today. Plan: NEW - replaced [employer] dual lead pacemaker with new atrial and ventricular pacing leads. Old leads capped and abandoned. Stable for discharge to home Needs non-emergent ambulance for transport back to [facility] in [place], [place]. Outpatient follow up scheduled at [facility] for 10 post implant check. Provider: GIRISH Marin EP Procedural attending physician: Adiel Story MD EP Consult positional pager #[phone](EPMD) EP Device interrogation positional pager # [phone] * Rosie Ashraf RN - 09/23/2022 5:37 [...] Chest Tube/Pleural Drain 07/10/2021 Vick Boss MD [facility] RAD CT SCAN CT PERITONEAL DRAINAGE 07/10/2021 CT Guided Drain Peritoneal 07/10/2021 Vick Boss MD [facility] RAD CT SCAN LAB VALUES: Laboratory Data: [...] Vini Lucero MD Cardiac Electrophysiology Fellow [facility] Pager [phone] 09/23/2022 I met with the patient today [...] in agreement. Dr. Dylan Story, electrophysiology attending ([id number]) documented in this encounter Miscellaneous Notes * Care Management Discharge - Tim Casillas RN - 09/24/2022 11:30 AM EDT CARE MANAGEMENT FINAL DISCHARGE NOTE Chart reviewed, care reviewed with primary team and at interdisciplinary rounds. Patient is medically ready for discharge to [facility]. Needs for Transition of Care: Plan for discharge is: Nursing Home Facility / Swing Outpatient Agency/Support Group Needs: None Agency Referrals & Follow-up Care: Contact information for follow-up [facility] [address] [place] [address] Transportation: ambulance Ambulance Finance Conversation Completed: 09/24/2022 Spoke to: Radha Chand MILL WORKER at accepting facility Verbalized Understanding: Yes Functional [...] Transition of Care 09/24/2022414 by Ann Marie aMki RN Outcome: Ongoing [...] Operative Note Patient Name: Tim Mera : [id number] MR#: [id number] Case Date: 09/23/2022 Surgeon: Surgeon(s) and Role: [...] AM EST Hospital Encounter Non[place] [address] Arrived Scheduled Orders Name Type [...] who have questions please contact the health youth care worker that requested your imaging first. ? Electronically signed by: Denilson Puentes MD, [facility] ([phone]), at 09/24/2022 8:47 AM Narrative 09/24/2022 8:47 [...] patients who have questions please contactthe health youth care worker that requested your imaging first. Electronically signed by: Denilson Puentes MD, [facility]([phone]), at 09/24/2022 8:47 AM Dylan Story MD IMG DX ORDERABLES * EKG 12 Lead (09/23/2022 5:18 PM EDT) Ventricular rate 74 BPM MUSE SYSTEM Atrial Rate 74 BPM MUSE SYSTEM P-R Interval 168 ms MUSE SYSTEM QRS Duration 164 ms MUSE SYSTEM Q-T Interval 458 ms MUSE SYSTEM QTC Calculated (Bezet) 508 ms MUSE SYSTEM Calculated P [place] 13 degrees MUSE SYSTEM Calculated R [place] -72 degrees MUSE SYSTEM Calculated T [place] 91 degrees MUSE SYSTEM INTERPRETATION Atrial-sense d ventricular- paced rhythm Abnormal ECG No previous ECGs available Confirmed by Bro Dasilva ([id number]) on 09/24/2022 9:15:33 AM MUSE SYSTEM 09/23/2022 [...] PATIENT NAME: Tim Mera PATIENT : 1950 WAREHOUSE RECEIVER: Dylan Story MD FELLOW: Vini Lucero MD REFERRING PROVIDER: GIRISH Rai PROCEDURE DATE: 09/23/2022 PATIENT HISTORY: Mr. Mera is a 71 year old man with a history of complete heart block status post dual chamber [employer] pacemaker in 2018 with course complicated [...] the entire procedure. LEAD AND GENERATOR DATA: Wound Treatment Rn Model # Serial # Generator (New) Nexopia [id number] [id number] Atrial Lead (New) [employer] 7841 2352646 RV Lead (new) [employer] 7842 [id number] REMOVED GENERATOR AND CAPPED ATRIAL LEAD: Wound Treatment Rn Model # Serial # Generator (Explanted) Nexopia L111 844599 Atrial Lead (Capped) [employer] 3830 [id number] ?? Ventricular lead (capped) [employer] 7742 819458 PACE/SENSE DATA: Sensed wave (mV) Threshold (V) [...] with new A and V leads (cpt 41382) Dylan Story MD S Cardiac Electrophysiology 09/24/2022 1:57 PM Procedure Note Dylan Story MD - 09/27/2022 Images from the original note were not included. PACEMAKER GENERATOR CHANGE AND REVISION OF RA AND RV LEADS PATIENT NAME: Tim Mear PATIENT : 1950 WAREHOUSE RECEIVER: Dylan Story MD FELLOW: Vini Lucero MD REFERRING PROVIDER: GIRISH Rai PROCEDURE DATE: 09/23/2022 PATIENT HISTORY: Mr. Mera is a 71 year old man with a history of complete heart blockstatus post dual chamber [employer] pacemaker in 2018 with coursecomplicated by [...] the entire procedure. LEAD AND GENERATOR DATA: Wound Treatment Rn Model # Serial # Generator (New) [employer] L311 887441 Atrial Lead (New) [employer] 7841 1123455 RV Lead (new) [employer] 7842 8197783 REMOVED GENERATOR AND CAPPED ATRIAL LEAD: Wound Treatment Rn Model # Serial # Generator (Explanted) [employer] L111 158151 Atrial Lead (Capped) [employer] 3830 [id number] Ventricular lead (capped) [employer] 7742 259901 PACE/SENSE DATA: Sensed wave (mV) Threshold (V) [...] pacemaker with new A and V leads(cpt 41700) Dylan Story MD S Cardiac Electrophysiology 09/24/2022 1:57 PM Dylan Story MD EP PROCEDURE ORDERAB LES * (ABNORMAL) Differential, Automated (09/23/2022 12:05 PM EDT) Neutrophil % 62.1 % [facility] Neutrophil Absolute 5.82 1.70 - 6.10 x10(3)/mc L [facility] Lymph % 22.3 % [facility] Lymphocytes Abs 2.1 0.9 - 3.2 x10(3)/mc L [facility] Monocyte % 11.8 % [facility] Monocyte Abs 1.1(H) 0.3 - 0.9 x10(3)/mc L [facility] Eos % 2.1 % [facility] Eosinophils Abs 0.2 0.0 - 0.4 x10(3)/mc L [facility] Basophil % 1.1 % [facility] Baso Absolute 0.1 0.0 - 0.1 x10(3)/mc L [facility] Immature Gran % 0.60 % [facility] Comment: Immature granulocytes(IG's)percentage and absolute count will include metamyelocytes, myelocytes, and promyelocytes. Blood smears from CBCs yielding IG's will be scanned manually for concordance. If this scan disagrees with the automated IG or if promyelocytes are noted, a manual differential will be performed. Immature Gran Absolute 0.06(H) 0.00 - 0.04 x10(3)/mc L [facility] Blood 09/23/2022 12:0 5 PM EDT 09/23/2022 12:25 PM EDT Narrative Resulting Agency Comment Spec In Lab Dylan Story MD HEMATOLOGY ORDERABLE S Performing Organization Address City/[facility]/ZIP Co de Phone Number [facility] [place] [address] * (ABNORMAL) Hemogram (09/23/2022 12:05 PM EDT) White Blood Cell 9.4 4.0 - 9.5 x10(3)/[facility] Red Blood Cell 3.77(L) 4.58 - 5.54 x10(6)/[facility] Hemoglobin 13.1(L) 13.7 - 16.5 g/dL [facility] Hematocrit 39.5(L) 40.5 - 48.5 % [facility] Mean Cell Volume 104.8(H) 82.9 - 93.1 fL [facility] Mean Cell Hemoglobin 34.7(H) 27.5 - 32.1 pg [facility] Mean Cell Hemoglobin Concentration 33.2 32.0 - 35.7 g/dL [facility] Platelet 276 145 - 357 x10(3)/ L [facility] RDW Standard Deviation 47.7(H) 36.0 - 45.0 fL [facility] RDW coefficient of variation 12.3 11.4 - 13.8 % [facility] Mean Platelet Volume 10.4 7.6 - 12.9 fL [facility] NRBC% auto 0.0 % [facility] NRBC Absolute 0.000 0.000 - 0.000 x10(3)/mc L [facility] Blood 09/23/2022 12:0 5 PM EDT 09/23/2022 12:25 PM EDT Narrative Resulting Agency Comment Spec In Lab Dylan Story MD HEMATOLOGY ORDERABLE S Performing Organization Address City/[facility]/ZIP Co de Phone Number [facility] [place] [address] * (ABNORMAL) Basic Metabolic Panel (non-fasting) (09/23/2022 12:05 PM EDT) Glucose 106 65 - 199 mg/dL [facility] Comment:Diabetes: >=200 mg/d L plus symptoms Blood Urea Nitrogen 8(L) 10 - 20 mg/dL [facility] Creatinine 0.58(L) 0.80 - 1.50 mg/dL [facility] Sodium 130(L) 135 - 145 mmol/L [facility] Potassium 5.0 3.5 - 5.0 mmol/L [facility] Comment: Please note: ??Patients with WBC >100,000 may have falsely elevated Potassium levels. ??For accurate Potassium quantification in these patients send serum separator tube (gold top) for subsequent determinations. ??Contact the Clinical Chemistry Laboratory if there are any questions. Chloride 95(L) 98 - 107 mmol/L [facility] Carbon Dioxide 25 22 - 31 mmol/L [facility] Anion Gap 10 5 - 15 mmol/L [facility] Calcium 9.3 8.5 - 10.5 mg/dL [facility] Est Glomerular Filtration Rate 104 >=60 mL/min/1. 73 m?? [facility] Comment: This patient's estimated GFR [...] In Lab Dylan Story MD CHEMISTRY ORDERABLES [facility] [place] [address] documented in this encounter Visit Diagnoses Diagnosis Complete heart block- Primary Atrioventricular block, complete Pacemaker at end of battery life Fitting and adjustment of cardiac pacemaker Pacemaker battery depletion Fitting and adjustment of cardiac pacemaker AV block Atrioventricular block, unspecified Complete heart block Atrioventricular block, complete Pacemaker - dual lead [employer] pacemaker Cardiac pacemaker in situ Pacemaker [...] Given 09/23/2022 2:11 PM EDT 400 mg tlovmy-jmthqtyz-ovazggj DR (Creon 24) 24,000-76,000 -120,000 unit per [...] 1411 (Given - Provider: Vini Lucero MD) kzbhqw-tdxyoden-hqoaaqv DR (Creon 24) 24,000-76,000 -120,000 unit per [...] Routine documented in this encounter Care Teams Psychiatric Aide Relationship Specialty Start Date End Date Katia Stone PA [address] [place] [phone] PCP - General General Internal Medicine 11/10/18 documented as of this encounter
--- OUTSIDE RECORDS SUMMARY | 2023-12-24 18:46 | XMS_ITS | Encounter Summary ---
Author Organization [facility] Address [facility] [place] [address] Care Team Providers Care Central Office Operator Supervisor Name Role Phone Katia Stone Primary Care Provider Encounter Details Date Type Department Care Team (Latest Contact Info) Description 11/06/2023 10:00 AM EDT - 11/06/2023 11:59 PM EDT Hospital Encounter Non[place] [address] Discharge Disposition: Home Social History Tobacco Use [...] Contact Info) Description 02/04/2024 10:00 AM [facility] Hospital Encounter Non-[place] [address] Arrived documented as of this encounter Procedures [...] on filedocumented in this encounter Care Teams Central Office Operator Supervisor Relationship Specialty Start Date End Date Katia Stone PA [address] [place] [phone] PCP - General General Internal Medicine 11/10/18 documented as of this encounter
--- OUTSIDE RECORDS SUMMARY | 2023-12-24 18:46 | XMS_ITS | Encounter Summary ---
Author Organization [facility] [place] [address] Care Team Providers Care Tax Staff Accountant Name Role Phone Katia Stone Primary Care Provider [phone] Reason for Visit * Auth/Cert (Routine) Specialty [...] PM) (WRVU 4.92) Dylan Story MD [facility] [place] [address] [facility] Referral ID Status Reason Start Date Expiration Date Visits Re quested Visits Authorized [id number] 1 1 Encounter Details Date Type Department Care Team (Late st Contact Info) Description 09/23/2022 1:23 PM EDT Anesthesia Event [place] [address] Alida Lopez MD [facility] DR [place] [address] Anesthesia Record Procedure Summary Procedure Name Responsible [...] 1012; metacarpal vein (top of hand), left; vcmn-ypr-srxlzx catheter system; 22 gauge; OSH; 09/23/22; 1307 07/10/21 1012 by Marilyn Duncan RN 09/23/22 1307 by Jessica Sandhu RN (RETIRED) Peripheral IV Line - Single Lumen 09/23/22; 1307; metacarpal vein (top of hand), left; unpj-iuk-nuevto catheter system; Anatomical Landmarks; 20 gauge; anes; [...] Room / Location: EP B-LAB ROOM / [facility] EP LABS Anesthesia Start: 1323 Anesthesia [...] All Anesthesia Providers: Anesthesiologist: Alida Lopez MD AUDIT REVIEWER: Jill Ríos CRNA Vitals Value Taken Time BP 125/94 09/23/22 1715 Temp 36.4 ??C (97.5 ??F) 09/23/22 1634 Pulse 73 09/23/22 1722 Resp 20 09/23/22 1722 SpO2 92 % 09/23/22 1722 Pain Level 10 09/23/22 1720 Vitals shown include unvalidated device data. Patient Location: PACU/[facility] Level of Consciousness: Conscious but Sleepy [...] Chest Tube/Pleural Drain 07/10/[address] [facility] RAD CT SCAN ??? CT PERITONEAL DRAINAGE 07/10/2021 CT Guided Drain Peritoneal 07/10/[address] [facility] RAD CT SCAN Social History Tobacco [...] risks discussed with patient. Plan discussed with AUDIT REVIEWER and attending. Anesthesia Screening documented in this encounter Plan of Treatment Upcoming Encounters Date Type Department Care Team (Late st Contact Info) Description 02/04/2024 10:00 AM [facility] Hospital Encounter Non[place] [address] Arrived documented as of this [...] mg documented in this encounter Care Teams Tax Staff Accountant Relationship Specialty Start Date End Date Katia Stone PA [address] [place] [phone] PCP - General General Internal Medicine 11/10/18 documented as of this encounter
--- OUTSIDE RECORDS SUMMARY | 2023-12-24 18:46 | XMS_ITS | Encounter Summary ---
Author Organization [facility] [place] [address] Care Team Providers Care Hedge Fund Accountant Name Role Phone Katia Stone Primary Care Provider [phone] Reason for Visit * Reason Onset Date Comments Pre Procedure Call 09/11/2022 Encounter Details Date Type Department Care Team (Late st Contact Info) Description 09/11/2022 Telephone Cardiology at [address] [phone] Patsy Gaffney, RN Pre Procedure Call Social [...] Generator Replacement + Atrial Lead Replacement EP VALVE AND REGULATOR REPAIRER COORDINATION CHECKLIST Patient Name: Tim Mera - [facility] (instructions also to be faxed) Patient Performing Product Advisor: Dylan Story Referring Provider: Humberto Ashraf Date of Procedure: 09/23/22 Arrival Time/ Case Time: 12:00 pm / 1:00 pm Check In Location: Manual Winder Desk 4W Date Patient was Called: 09/11/22 Procedure: Generator Replacement + New Atrial Lead Placement Company: [employer] Type: DC PCM Orders: Yes Lab Orders: [...] overnight , understands that they will need forklift driver on day of discharge Notified pt that Webber catheter may be placed on day of procedure depending on type & duration of case. documented in this encounter Plan of Treatment Upcoming Encounters Date Type Department Care Team (Late st Contact Info) Description 02/04/2024 10:00 AM [facility] Hospital Encounter Non[place] [address] Arrived documented as of this encounter Visit Diagnoses Not on filedocumented in this encounter Care Teams Hedge Fund Accountant Relationship Specialty Start Date End Date Katia Stone PA [address] [place] [phone] PCP - General General Internal Medicine 11/10/18 documented as of this encounter
--- OUTSIDE RECORDS SUMMARY | 2023-12-24 18:46 | XMS_ITS | Encounter Summary ---
Author Organization [facility] Address [facility] [place] [address] Care Team Providers Care Campus Monitor Name Role Phone Katia Stone Primary Care Provider [phone] Encounter Details Date Type Department Care Team (Late st Contact Info) Description 07/22/2022 Orders Only Cardiology at [address] [phone] Humberto Ashraf PA [facility] [place] [address] Social History Tobacco Use Types Packs/Day Years Used Date Smoking Tobacco: Never Assessed Sex and Gender Information Value Date Recorded Sex Assigned at Not on file Gender Identity Not on file Sexual Orientation Not on file documented as of this encounter Progress Notes * Humberto Ashraf PA - 07/22/2022 3:02 PM EDT Cardiac Electrophysiology 71yo man with hx of CHB, s/p dual lead [employer] pacemaker implant implanted 04/30/2017, complicated by pericardial effusion with tamponade requiring RA lead reposition on 05/16/2020. RA lead function has continued to deteriorate with significantly elevated pacing threshold. His device has now tripped to DIONICIO on 07/10/2022. Dr. Story evaluated her device on 07/03/2022 at [facility] clinic visit and reviewed risk/benefit of [...] AM EST Hospital Encounter Non-Invasive [place] [address] Arrived documented as of this encounter Visit Diagnoses Not on filedocumented in this encounter Care Teams Campus Monitor Relationship Specialty Start Date End Date Katia Stone PA [address] [place] [phone] PCP - General General Internal Medicine 11/10/18 documented as of this encounter
--- OUTSIDE RECORDS SUMMARY | 2023-12-24 18:46 | XMS_ITS | Encounter Summary ---
Author Organization [facility] Address [facility] [place] [address] Care Team Providers Care Welt Butter Hand Name Role Phone Katia Stone Primary Care Provider [phone] Encounter Details Date Type Department Care Team (Late st Contact Info) Description 09/11/2022 Orders Only Cardiology at [address] [phone] Dylan Story MD [facility] [place] [address] Pacemaker battery depletion; AV block Social History [...] st Contact Info) Description 02/04/2024 10:00 AM [facility] Hospital Encounter Non-Invasive [place] [phone] Arrived documented as of this encounter Results * (ABNORMAL) Basic Metabolic Panel (non-fasting) (09/23/2022 12:05 PM EDT) [facility] Glucose 106 65 - 199 mg/dL [facility] Comment:Diabetes: >=200 mg/d L plus symptoms Blood Urea Nitrogen 8(L) 10 - 20 mg/dL [facility] Creatinine 0.58(L) 0.80 - 1.50 mg/dL [facility] Sodium 130(L) 135 - 145 mmol/L [facility] Potassium 5.0 3.5 - 5.0 mmol/L [facility] Comment: Please note: ??Patients with WBC >100,000 may have falsely elevated Potassium levels. ??For accurate Potassium quantification in these patients send serum separator tube (gold top) for subsequent determinations. ??Contact the Clinical Chemistry Laboratory if there are any questions. Chloride 95(L) 98 - 107 mmol/L [facility] Carbon Dioxide 25 22 - 31 mmol/L [facility] Anion Gap 10 5 - 15 mmol/L [facility] Calcium 9.3 8.5 - 10.5 mg/dL [facility] Est Glomerular Filtration Rate 104 >=60 mL/min/1. 73 m?? [facility] Comment: This patient's estimated [...] Story MD CHEMISTRY ORDERABLES Performing Organization Address City/State/[facility] Co de Phone Number [facility] [place] [address] documented in this encounter Visit Diagnoses Diagnosis Pacemaker battery depletion Fitting and adjustment of cardiac pacemaker AV block Atrioventricular block, unspecified documented in this encounter Care Teams Welt Butter Hand Relationship Specialty Start Date End Date Katia Stone PA [address] [place] [phone] PCP - General General Internal Medicine 11/10/18 documented as of this encounter
--- OUTSIDE RECORDS SUMMARY | 2023-12-24 18:46 | XMS_ITS | Encounter Summary ---
Author Organization [facility] [place] [address] Care Team Providers Care Motor Vehicles Inspector Name Role Phone Katia Stone Primary Care Provider Encounter Details Date Type Department Care Team (Latest Contact Info) Description 11/11/2022 10:00 AM EDT - 11/11/2022 11:59 PM EDT Hospital Encounter Non-Invasive [place] [address] Discharge Disposition: Home Social History Tobacco Use [...] [facility] Hospital Encounter Non-Invasive [place] [address] Arrived documented as of this encounter Procedures [...] filedocumented in this encounter Care Teams Motor Vehicles Inspector Relationship Specialty Start Date End Date Katia Stone PA [address] [place] [phone] PCP - General General Internal Medicine 11/10/18 documented as of this encounter
--- OUTSIDE RECORDS SUMMARY | 2023-12-24 18:46 | XMS_ITS | Encounter Summary ---
Author Organization [facility] Address [facility] [place] [address] Care Team Providers Care Underwriting Assistant Name Role Phone Katia Stnoe Primary Care Provider [phone] Reason for Visit * Auth/Cert (Routine) Specialty [...] (WRVU 4.92) Dylan Story MD [facility] [place] [address] [place] Referral ID Status Reason Start Date Expiration Date Visits Re quested Visits Authorized [id number] 1 1 Encounter Details Date Type Department Care Team (Late st Contact Info) Description 09/23/2022 12:06 PM EDT - 09/23/2022 2:36 PM EDT Surgery [place] [address] Dylan Story MD [facility] [place] [address] ELECTROPHYSIOLOGY PROCEDURE Social History Tobacco Use Types Packs/Day Years Used Date Smoking Tobacco: Never Smokeless Tobacco: Never Tobacco Cessation:Counseling Given: Not Answered Alcohol Use Standard Drinks/Week Comments Yes 14 (1 standard drink = 0.6 oz pu re alcohol) [facility] Inpatient Questions Answer Date Recorded Does [...] Tim Mera Patient Age: 71 y.o. Language: Canadian Race: White Ethnicity: Not nor Admit date: 09/23/2022 Discharge date and time: 09/24/2022 1315 Attending Physician: Dylan tSory MD Discharge Physician: Dylan Story MD Follow-up Recommendations for Providers: NEW - replaced [employer] dual lead pacemaker with new atrial and ventricular pacing leads. Old leads capped and abandoned. Stable for discharge to home Needs non-emergent ambulance for transport back to [facility] in [place], [place]. Outpatient follow up scheduled at [facility] for 10 post implant check. Inpatient Provider Contact Information: Cardiac Electrophysiology [phone], option #3 Discharge Diagnoses (Hospital Problems) and Secondary Diagnoses (Chronic Problems): Active Hospital Problems Diagnosis Complete heart block Pacemaker - dual lead [employer] pacemaker Resolved Hospital Problems No resolved problems to display. Operations/Major Procedures: Operations: Procedure(s): ELECTROPHYSIOLOGY PROCEDURE REMOVAL PPM GENERATOR W REPL PPM GEN; DUAL LEAD (WRVU 5.52) REPOSITIONING PREVIOUSLY PLACED ELECTRODE (ICD OR PM) (WRVU 4.92) 09/23/2022 History of Presentation: 71 y.o. male with a history of complete heart block s/p dual chamber permanent pacemaker April 2017 at [facility] course complicated by both pericardial [...] RV pacing leads were implanted. A new [employer] pacemaker pulse generator was also implanted. [...] 106 (L): Data is abnormally low Treatments: Link Cutter Model # Serial # Generator (New) Geraldine Sci [id number] Atrial Lead (New) Geraldine Sci [id number] [id number] RV Lead Geraldine Sci 7742 [id number] Old RA lead capped and abandoned Old RV lead found to have insulation deterioration and this lead was also capped and abandoned New RA and RV leads placed [employer] pulse generator implanted DDD @ 60/120 Discharge [...] by mouth 3 times daily. Generic drug: dftmcp-fmxntuxi-zkzikkx DR 1 capsule Refills: 0 fentaNYL 12 [...] incision. Make sure to use a cloth picker (such as a towel) in between the [...] F. The office scheduling phone number is [phone]. ARM MOVEMENT RESTRICTIONS POST-IMPLANT - Do not [...] please call the Cardiac ElectrophysiologyTriage Nurse at [phone], option 3. General Instructions Future Appointments and Orders Future Appointments and Orders Future Appointments Provider Department Dept Phone 10/04/2022 11:00 AM Maite Lozano RN Cardiology at [facility] Arrive at: [facility] [phone] 12/27/2022 11:00 AM Maite Lozano RN Cardiology at [facility] Arrive at: [facility] [phone] Discharge References/Attachments None Dylan Story MD [facility] [...] incision. Make sure to use a cloth picker (such as a towel) in between the [...] F. The office scheduling phone number is [phone]. ARM MOVEMENT RESTRICTIONS POST-IMPLANT - Do not [...] please call the Cardiac ElectrophysiologyTriage Nurse at [phone], option 3. documented in this encounter Medications [...] General Information Tim Mera 1950 Medicare Number: [id number] Transport Date: 09/24/22 (PCS is valid for round trips on this date and for all repetitive trips in the 60-day range as noted below.) Origin: [place] [address] Destination: [facility] [address] [place] [address] Is the patient's stay covered under Medicare [...] is contraindicated by the patient's condition: medical laboratory technical officer required. Patient unable to tolerate seated position [...] van (i.e. seated during transport, without medical laboratory technical officer or monitoring?): No 4) In addition to complete questions 1-3 above, please select any of the following conditions that apply: *Note: supporting documentation for any boxes checked must be maintained in the patient's medical records Moderate/severe pain on movement bank vault attendant required Section III - Signature of [...] 09/24/2022 10:54 AM EDT Office of Care Management/Rn Admissions Patient Name: Tim Mera : 1950 Patient is returning to a SNF bed at [facility]. [facility] arranged for a 1300hrs transport. Ambulance will need: Medicare ambulance form completed and signed (MD or Welding Machine Operator Friction RN/CUT ROLL MACHINE OFFBEARER) Copy of patient demographics [place] Out of Hospital DNR/DNI order, if active No MD to MD report necessary. Please call Nursing Report to , ask for senior medical director. Info to accompany patient: Copies of Medication Administration Records and IV sheets for past 10 days. Plan: Rn Admissions will be available to the patient and Welding Machine Operator Friction-RN and/or Social Workerfor further assistance. Patient will be discharged to: [facility] [address] [place] [address] Paco Haider, Rn Admissions * Humberto Ashraf PA - 09/24/2022 10:31 AM EDT Inpatient Cardiac Electrophysiology Discharge Day Note Patient Name: Tim Mera Service: EP Responsible Attending: Dylan Story MD Reason for continued hospitalization: POD#1 pacemaker pulse generator and lead replacement Active Problems: Active Hospital Problems Diagnosis Complete heart block Pacemaker - dual lead [employer] pacemaker Resolved Hospital Problems No resolved problems to display. Interval History: 71 y.o. male with a history of complete heart block s/p dual chamber permanent pacemaker April 2017 at [facility] course complicated by both pericardial [...] RV pacing leads were implanted. A new [employer] pacemaker pulse generator was also implanted. [...] Oral Daily loratadine 10 mg Oral Daily ratxzo-iasoagut-utdtxes DR 1 capsule Oral TID magnesium oxide [...] 0.00 - 0.04 x10(3)/mcL Pertinent Radiographic/Diagnostic Results: Link Cutter Model # Serial # Generator (New) Fusion [employer] Sci [id number] Atrial Lead (New) Geraldine Boxer 7841 [id number] RV Lead Geraldine Sci 7742 [id number] Old RA lead capped and abandoned Old RV lead found to have insulation deterioration and this lead was also capped and abandoned New RA and RV leads placed [employer] pulse generator implanted DDD @ 60/120 P wave: 2.2mV R wave: none above 30 Atrial impedance: 581 ohms RV impedance:777 ohms RA threshold: 0.7V @0.4ms RV threshold: 0.4V @ 0.4ms AP 38%; DISASTER RECOVERY ANALYST 100% No events Estimated battery longevity >8 years CXR: 09/24/2022 Left sided dual lead pacemaker 4 leads; two abandoned No pneumothorax +small bilateral pleural effusions Assessment: Tim Mera is a 71 y.o. male withhx of complete heart block, s/p dual lead [id number] at [facility], now with cell depletion, fractured atrial lead and unexpected insulation deteriorationof RV lead resulting placement of new RA and RV pacing leads along with a new pulse generator. Device function is excellent today. Plan: NEW - replaced [employer] dual lead pacemaker with new atrial and ventricular pacing leads. Old leads capped and abandoned. Stable for discharge to home Needs non-emergent ambulance for transport back to [facility] in [place], [place]. Outpatient follow up scheduled at [facility] for 10 post implant check. Provider: GIRISH Marin EP Procedural attending physician: Adiel Story MD EP Consult positional pager #[phone](EPMD) EP Device interrogation positional pager # [phone] * Rosie Ashraf RN - 09/23/2022 5:37 [...] dual chamber permanent pacemaker April 2017 at [facility] course complicated by both pericardial [...] Chest Tube/Pleural Drain 07/10/2021 Vick Boss MD [facility] RAD CT SCAN CT PERITONEAL DRAINAGE 07/10/2021 CT Guided Drain Peritoneal 07/10/2021 Vick Boss MD [facility] RAD CT SCAN LAB VALUES: Laboratory Data: Lab Results Component Value Date WBC 9.4 09/23/2022 HGB 13.1 (L) 09/23/2022 HCT 39.5 (L) 09/23/2022 MCV 104.8 (H) 09/23/2022 ASSESSMENT AND PLAN: Tim Mera is a 71 y.o. male with a history of complete heart block s/p dual chamber permanent pacemaker April 2017 at [facility] course complicated by both pericardial [...] Vini Lucero MD Cardiac Electrophysiology Fellow [facility] Pager [phone] 09/23/2022 I met with the patient today [...] in agreement. Dr. Dylan Story, electrophysiology attending ([id number]) documented in this encounter Miscellaneous Notes * Care Management Discharge - Tim Casillas RN - 09/24/2022 11:30 AM EDT CARE MANAGEMENT FINAL DISCHARGE NOTE Chart reviewed, care reviewed with primary team and at interdisciplinary rounds. Patient is medically ready for discharge to [facility]. Needs for Transition of Care: Plan for discharge is: Residential Facility / Swing Outpatient Agency/Support Group Needs: None Agency Referrals & Follow-up Care: Contact information for follow-up [facility] [address] [place] [id number] Transportation: ambulance Ambulance Finance Conversation Completed: 09/24/2022 Spoke to: Radha Chand CABLE LACER at accepting facility Verbalized Understanding: Yes Functional [...] Operative Note Patient Name: Tim Mera : [id number] MR#: [id number] Case Date: 09/23/2022 Surgeon: Surgeon(s) and Role: [...] AM EST Hospital Encounter [place] [address] Arrived Scheduled Orders Name Type Priority Associated [...] who have questions please contact the health medicare compliance auditor that requested your imaging first. ? Electronically signed by: Denilson Puentes MD, [facility] ([phone]), at 09/24/2022 8:47 AM Narrative 09/24/2022 8:47 [...] patients who have questions please contactthe health medicare compliance auditor that requested your imaging first. Electronically signed by: Denilson Puentes MD, [facility]([phone]), at 09/24/2022 8:47 AM Dylan Story MD IMG DX ORDERABLES * EKG 12 Lead (09/23/2022 5:18 PM EDT) Ventricular rate 74 BPM MUSE SYSTEM Atrial Rate 74 BPM MUSE SYSTEM P-R Interval 168 ms MUSE SYSTEM QRS Duration 164 ms MUSE SYSTEM Q-T Interval 458 ms MUSE SYSTEM QTC Calculated (Bezet) 508 ms MUSE SYSTEM Calculated P [place] 13 degrees MUSE SYSTEM Calculated R [place] -72 degrees MUSE SYSTEM Calculated T [place] 91 degrees MUSE SYSTEM INTERPRETATION Atrial-sense d ventricular- paced rhythm Abnormal ECG No previous ECGs available Confirmed by Bro Dasilva ([id number]) on 09/24/2022 9:15:33 AM MUSE SYSTEM 09/23/2022 [...] PATIENT NAME: Tim Mera PATIENT : 1950 NURSE TRANSITION: Dylan Story MD FELLOW: Vini Lucero MD REFERRING PROVIDER: GIRISH Rai PROCEDURE DATE: 09/23/2022 PATIENT HISTORY: Mr. Mera is a 71 year old man with a history of complete heart block status post dual chamber [employer] pacemaker in 2018 with course complicated [...] the entire procedure. LEAD AND GENERATOR DATA: Link Cutter Model # Serial # Generator (New) [employer] L311 [id number] Atrial Lead (New) Geraldine Boxer 7841 [id number] RV Lead (new) Geraldine Boxer 7842 [id number] REMOVED GENERATOR AND CAPPED ATRIAL LEAD: Link Cutter Model # Serial # Generator (Explanted) [employer] L111 [id number] Atrial Lead (Capped) OYE!tronic 3830 [id number] ?? Ventricular lead (capped) [employer] 7742 [id number] PACE/SENSE DATA: Sensed wave (mV) Threshold (V) [...] with new A and V leads (cpt 55337) Dylan Story MD S Cardiac Electrophysiology 09/24/2022 1:57 PM Procedure Note Dylan Story MD - 09/27/2022 Images from the original note were not included. PACEMAKER GENERATOR CHANGE AND REVISION OF RA AND RV LEADS PATIENT NAME: Tim Mera PATIENT : 1950 NURSE TRANSITION: Dylan Story MD FELLOW: Vini Lucero MD REFERRING PROVIDER: GIRISH Rai PROCEDURE DATE: 09/23/2022 PATIENT HISTORY: Mr. Mera is a 71 year old man with a history of complete heart blockstatus post dual chamber [employer] pacemaker in 2018 with coursecomplicated by [...] the entire procedure. LEAD AND GENERATOR DATA: Link Cutter Model # Serial # Generator (New) Geraldine Boxer L311 [id number] Atrial Lead (New) Geraldine Boxer 7841 [id number] RV Lead (new) Geraldine Boxer 7842 [id number] REMOVED GENERATOR AND CAPPED ATRIAL LEAD: Link Cutter Model # Serial # Generator (Explanted) Geraldine Boxer L111 [id number] Atrial Lead (Capped) Medtronic 3830 [id number] Ventricular lead (capped) [employer] 7742 [id number] PACE/SENSE DATA: Sensed wave (mV) Threshold (V) [...] pacemaker with new A and V leads(cpt 68152) Dylan Story MD [facility] Cardiac Electrophysiology 09/24/2022 1:57 PM Dylan Story MD EP PROCEDURE ORDERAB LES * (ABNORMAL) Differential, Automated (09/23/2022 12:05 PM EDT) Neutrophil % 62.1 % [facility] Neutrophil Absolute 5.82 1.70 - 6.10 x10(3)/mc L [facility] Lymph % 22.3 % [facility] Lymphocytes Abs 2.1 0.9 - 3.2 x10(3)/mc L [facility] Monocyte % 11.8 % [facility] Monocyte Abs 1.1(H) 0.3 - 0.9 x10(3)/mc L [facility] Eos % 2.1 % [facility] Eosinophils Abs 0.2 0.0 - 0.4 x10(3)/mc L [facility] Basophil % 1.1 % [facility] Baso Absolute 0.1 0.0 - 0.1 x10(3)/mc L [facility] Immature Gran % 0.60 % [facility] Comment: Immature granulocytes(IG's)percentage and absolute count will include metamyelocytes, myelocytes, and promyelocytes. Blood smears from CBCs yielding IG's will be scanned manually for concordance. If this scan disagrees with the automated IG or if promyelocytes are noted, a manual differential will be performed. Immature Gran Absolute 0.06(H) 0.00 - 0.04 x10(3)/mc L [facility] Blood 09/23/2022 12:0 5 PM EDT 09/23/2022 12:25 PM EDT Narrative Resulting Agency Comment Spec In Lab Dylan Story MD HEMATOLOGY ORDERABLE S [facility] [place] [address] * (ABNORMAL) Hemogram (09/23/2022 12:05 PM EDT) White Blood Cell 9.4 4.0 - 9.5 x10(3)/mc L [facility] Red Blood Cell 3.77(L) 4.58 - 5.54 x10(6)/mc L [facility] Hemoglobin 13.1(L) 13.7 - 16.5 g/dL [facility] Hematocrit 39.5(L) 40.5 - 48.5 % [facility] Mean Cell Volume 104.8(H) 82.9 - 93.1 fL [facility] Mean Cell Hemoglobin 34.7(H) 27.5 - 32.1 pg [facility] Mean Cell Hemoglobin Concentration 33.2 32.0 - 35.7 g/dL [facility] Platelet 276 145 - 357 x10(3)/mc L [facility] RDW Standard Deviation 47.7(H) 36.0 - 45.0 fL [facility] RDW coefficient of variation 12.3 11.4 - 13.8 % [facility] Mean Platelet Volume 10.4 7.6 - 12.9 fL [facility] NRBC% auto 0.0 % [facility] NRBC Absolute 0.000 0.000 - 0.000 x10(3)/mc L [facility] Blood 09/23/2022 12:0 5 PM EDT 09/23/2022 12:25 PM EDT Narrative Resulting Agency Comment Spec In Lab Dylan Story MD HEMATOLOGY ORDERABLE S Performing Organization Address City/[facility]/ZIP Co de Phone Number [facility] [place] [address] * (ABNORMAL) Basic Metabolic Panel (non-fasting) (09/23/2022 12:05 PM EDT) Glucose 106 65 - 199 mg/dL [facility] Comment:Diabetes: >=200 mg/d L plus symptoms Blood Urea Nitrogen 8(L) 10 - 20 mg/dL [facility] Creatinine 0.58(L) 0.80 - 1.50 mg/dL [facility] Sodium 130(L) 135 - 145 mmol/L [facility] Potassium 5.0 3.5 - 5.0 mmol/L [facility] Comment: Please note: ??Patients with WBC >100,000 may have falsely elevated Potassium levels. ??For accurate Potassium quantification in these patients send serum separator tube (gold top) for subsequent determinations. ??Contact the Clinical Chemistry Laboratory if there are any questions. Chloride 95(L) 98 - 107 mmol/L [facility] Carbon Dioxide 25 22 - 31 mmol/L [facility] Anion Gap 10 5 - 15 mmol/L [facility] Calcium 9.3 8.5 - 10.5 mg/dL [facility] Est Glomerular Filtration Rate 104 >=60 mL/min/1. 73 m?? [facility] Comment: This patient's estimated [...] In Lab Dylan Story MD CHEMISTRY ORDERABLES [facility] [place] [address] documented in this encounter Visit Diagnoses Diagnosis [...] Given 09/23/2022 2:11 PM EDT 400 mg xqiiqy-zppzrama-mbqkqgr DR (Creon 24) 24,000-76,000 -120,000 unit per [...] 1411 (Given - Provider: Vini Lucero MD) laommr-prhwkhex-dbtkeyx DR (Creon 24) 24,000-76,000 -120,000 unit per [...] Routine documented in this encounter Care Teams Underwriting Assistant Relationship Specialty Start Date End Date Katia Stone PA [address] [place] [address] PCP - General General Internal Medicine 11/10/18 documented as of this encounter
== END 2023-12-24 18:40 | disposition home or self-care (01) ==
LOC: LBN 18:39
PROVIDERS: PCP Legal Medicine; Visit Provider Nurse Practitioner Gerontology
DX: J18.9 Pneumonia, unspecified organism (principal)
CPT/HCPCS: 80053; 85025

== ENCOUNTER 2023-12-29 21:18 | Outpatient (REF) | payer MEDICARE, MEDICAID, SELFPAY ==
[2023-12-29 19:10] LABS: Abs Immature Grans 0.08 10^3/uL (0.0-0.06); Absolute Basophil Count 0.09 10^3/uL (0.0-0.2); Absolute Eosinophil Count 0.29 10^3/uL (0.0-0.7); Absolute Lymphocyte Count 2.45 10^3/uL (1.2-3.4); Absolute Monocyte Count 1.05 10^3/uL (0.1-0.8); Basophils % 0.7 %; Eosinophils % 2.2 %; HCT 39.2 % (40.0-50.0); HGB 12.9 g/dL (13.5-17.5); Immature Grans % 0.6 %; Lymphocytes % 18.4 %; MCH 33.1 pg (27.0-33.0); MCHC 32.9 % (32.0-36.0); MCV 101 fL (80-95); MPV 12.4 fL (8.0-11.0); Monocytes % 7.9 %; Neutrophils % 70.2 %; Platelet Count 256 10^3/uL (130-400); RDW 12.2 % (11.8-14.1); RDW-SD 45.7 fL; WBC 13.32 10^3/uL (4.4-10.8)
[2023-12-29 19:13] LABS: Absolute Neutrophil Count 9.35 10^3/uL (1.2-6.7)
[2023-12-29 19:38] LABS: ALT 16 U/L (16-63); AST 30 U/L (15-37); Albumin 2.8 g/dL (3.4-5.0); Alkaline Phosphatase 90 U/L (46-116); Anion Gap 10.6 mmol/L (3-11); BUN 11 mg/dL (7-18); Bilirubin, Total 0.42 mg/dL (0.2-1.0); CO2 27.4 mmol/L (21.0-32.0); CREATININE 0.5 mg/dL (0.70-1.30); Calcium 9.1 mg/dL (8.5-10.1); Chloride 102 mmol/L (98-107); Glucose 121 mg/dL (74-106); Potassium 3.7 mmol/L (3.5-5.1); Sodium 140 mmol/L (136-145); Total Protein 6.8 g/dL (6.4-8.2)
== END 2023-12-29 21:19 | disposition home or self-care (01) ==
LOC: LBN 21:18
PROVIDERS: PCP Legal Medicine; Visit Provider Nurse Practitioner Gerontology
DX: J18.9 Pneumonia, unspecified organism (principal)
CPT/HCPCS: 80053; 85025

== ENCOUNTER 2024-01-12 18:18 | Outpatient (REF) | payer MEDICARE, MEDICAID, SELFPAY ==
[2024-01-12 18:25] LABS: HCT 37.8 % (40.0-50.0); HGB 12.5 g/dL (13.5-17.5); MCH 32.8 pg (27.0-33.0); MCHC 33.1 % (32.0-36.0); MCV 99 fL (80-95); MPV 12.5 fL (8.0-11.0); Platelet Count 197 10^3/uL (130-400); RBC 3.81 10^6/uL (4.36-5.78); RDW 12.3 % (11.8-14.1); RDW-SD 44.7 fL; WBC 11.02 10^3/uL (4.4-10.8)
[2024-01-12 18:39] LABS: ALT 21 U/L (16-63); AST 16 U/L (15-37); Albumin 2.7 g/dL (3.4-5.0); Alkaline Phosphatase 102 U/L (46-116); Anion Gap 9.9 mmol/L (3-11); BUN 10 mg/dL (7-18); Bilirubin, Total 0.33 mg/dL (0.2-1.0); CO2 29.1 mmol/L (21.0-32.0); CREATININE 0.7 mg/dL (0.70-1.30); Calcium 8.7 mg/dL (8.5-10.1); Chloride 101 mmol/L (98-107); Estimated GFR 97.29 (mL/min/1.73m2); Glucose 144 mg/dL (74-106); Potassium 3.5 mmol/L (3.5-5.1); Sodium 140 mmol/L (136-145); Total Protein 6.6 g/dL (6.4-8.2)
== END 2024-01-12 18:19 | disposition home or self-care (01) ==
LOC: LBN 18:18
PROVIDERS: PCP Legal Medicine; Visit Provider Nurse Practitioner Gerontology
DX: J18.9 Pneumonia, unspecified organism (principal)
CPT/HCPCS: 80053; 85027

== ENCOUNTER → 2024-02-04 09:55 | Outpatient (BNVA) | payer MEDICARE, MEDICAID, SELFPAY | PROVIDERS: PCP Legal Medicine; Referring Provider Legal Medicine; Visit Provider Physician Assistant Surgical | DX: J98.19 Other pulmonary collapse (principal); J45.50 Severe persistent asthma, uncomplicated; J98.4 Other disorders of lung | CPT/HCPCS: 99214 ==

== ENCOUNTER 2024-02-05 09:01 | Outpatient (REF) | payer MEDICARE, MEDICAID, SELFPAY ==
[2024-02-05 11:26] LABS: Abs Immature Grans 0.14 10^3/uL (0.0-0.06); Absolute Eosinophil Count 0.08 10^3/uL (0.0-0.7); Basophils % 0.4 %; Eosinophils % 0.5 %; HCT 39.5 % (40.0-50.0); HGB 13.1 g/dL (13.5-17.5); Immature Grans % 0.8 %; Lymphocytes % 12.3 %; MCH 32.9 pg (27.0-33.0); MCHC 33.2 % (32.0-36.0); MCV 99 fL (80-95); MPV 12.5 fL (8.0-11.0); Monocytes % 6.8 %; Neutrophils % 79.2 %; Platelet Count 225 10^3/uL (130-400); RBC 3.98 10^6/uL (4.36-5.78); WBC 16.56 10^3/uL (4.4-10.8)
[2024-02-05 11:28] LABS: Absolute Basophil Count 0.07 10^3/uL (0.0-0.2); Absolute Lymphocyte Count 2.04 10^3/uL (1.2-3.4); Absolute Monocyte Count 1.13 10^3/uL (0.1-0.8); Absolute Neutrophil Count 13.12 10^3/uL (1.2-6.7)
[2024-02-05 11:39] LABS: ALT 23 U/L (16-63); AST 21 U/L (15-37); Alkaline Phosphatase 107 U/L (46-116); Anion Gap 11.3 mmol/L (3-11); BUN 11 mg/dL (7-18); Bilirubin, Total 0.44 mg/dL (0.2-1.0); CO2 24.7 mmol/L (21.0-32.0); CREATININE 0.7 mg/dL (0.70-1.30); Calcium 8.9 mg/dL (8.5-10.1); Chloride 100 mmol/L (98-107); Estimated GFR 97.29 (mL/min/1.73m2); Glucose 124 mg/dL (74-106); Potassium 4.2 mmol/L (3.5-5.1); Sodium 136 mmol/L (136-145); Total Protein 7.2 g/dL (6.4-8.2)
== END 2024-02-05 09:02 | disposition home or self-care (01) ==
LOC: LBN 09:01
PROVIDERS: PCP Legal Medicine; Visit Provider Nurse Practitioner Gerontology
DX: E87.1 Hypo-osmolality and hyponatremia (principal)
CPT/HCPCS: 80053; 85025

== ENCOUNTER 2024-02-09 18:46 | Outpatient (REF) | payer MEDICARE, MEDICAID, SELFPAY ==
[2024-02-09 18:45] LABS: Absolute Basophil Count 0.06 10^3/uL (0.0-0.2); Absolute Eosinophil Count 0.35 10^3/uL (0.0-0.7); Basophils % 0.5 %; Eosinophils % 2.7 %; HCT 39.1 % (40.0-50.0); HGB 12.8 g/dL (13.5-17.5); Immature Grans % 0.8 %; Lymphocytes % 20.2 %; MCH 32.7 pg (27.0-33.0); MCHC 32.7 % (32.0-36.0); MCV 100 fL (80-95); MPV 12.1 fL (8.0-11.0); Monocytes % 6.5 %; Neutrophils % 69.3 %; Platelet Count 233 10^3/uL (130-400); RBC 3.92 10^6/uL (4.36-5.78); RDW 12.3 % (11.8-14.1); RDW-SD 45.1 fL; WBC 12.84 10^3/uL (4.4-10.8)
[2024-02-09 18:46] LABS: Absolute Lymphocyte Count 2.59 10^3/uL (1.2-3.4); Absolute Monocyte Count 0.83 10^3/uL (0.1-0.8)
[2024-02-09 18:55] LABS: ALT 17 U/L (16-63); AST 22 U/L (15-37); Alkaline Phosphatase 106 U/L (46-116); Anion Gap 8.8 mmol/L (3-11); BUN 12 mg/dL (7-18); Bilirubin, Total 0.45 mg/dL (0.2-1.0); CO2 28.2 mmol/L (21.0-32.0); CREATININE 0.8 mg/dL (0.70-1.30); Calcium 8.8 mg/dL (8.5-10.1); Chloride 100 mmol/L (98-107); Estimated GFR 93.45 (mL/min/1.73m2); Glucose 123 mg/dL (74-106); Potassium 4.3 mmol/L (3.5-5.1); Sodium 137 mmol/L (136-145); Total Protein 7.2 g/dL (6.4-8.2)
== END 2024-02-09 18:47 | disposition home or self-care (01) ==
LOC: LBN 18:46
PROVIDERS: PCP Legal Medicine; Visit Provider Nurse Practitioner Gerontology
DX: J18.9 Pneumonia, unspecified organism (principal)
CPT/HCPCS: 80053; 85025

== ENCOUNTER 2024-03-01 20:16 | Outpatient (REF) | payer MEDICARE, MEDICAID, SELFPAY ==
[2024-03-01 21:43] LABS: Abs Immature Grans 0.07 10^3/uL (0.0-0.06); Absolute Basophil Count 0.08 10^3/uL (0.0-0.2); Absolute Eosinophil Count 0.39 10^3/uL (0.0-0.7); Absolute Lymphocyte Count 2.59 10^3/uL (1.2-3.4); Absolute Monocyte Count 1.13 10^3/uL (0.1-0.8); Absolute Neutrophil Count 9.17 10^3/uL (1.2-6.7); Basophils % 0.6 %; Eosinophils % 2.9 %; HGB 12.9 g/dL (13.5-17.5); Immature Grans % 0.5 %; Lymphocytes % 19.3 %; MCH 32.2 pg (27.0-33.0); MCHC 33.1 % (32.0-36.0); MCV 97 fL (80-95); MPV 12.4 fL (8.0-11.0); Monocytes % 8.4 %; Neutrophils % 68.3 %; Platelet Count 232 10^3/uL (130-400); RBC 4.01 10^6/uL (4.36-5.78); RDW 12.8 % (11.8-14.1); RDW-SD 45.5 fL; WBC 13.43 10^3/uL (4.4-10.8)
[2024-03-01 22:04] LABS: ALT 21 U/L (16-63); AST 20 U/L (15-37); Alkaline Phosphatase 125 U/L (46-116); Anion Gap 7.5 mmol/L (3-11); BUN 11 mg/dL (7-18); Bilirubin, Total 0.29 mg/dL (0.2-1.0); CO2 30.5 mmol/L (21.0-32.0); CREATININE 0.8 mg/dL (0.70-1.30); Calcium 9.2 mg/dL (8.5-10.1); Chloride 98 mmol/L (98-107); Estimated GFR 93.45 (mL/min/1.73m2); Glucose 120 mg/dL (74-106); Potassium 4.2 mmol/L (3.5-5.1); Sodium 136 mmol/L (136-145); Total Protein 7.1 g/dL (6.4-8.2)
== END 2024-03-01 20:17 | disposition home or self-care (01) ==
LOC: LBN 20:16
PROVIDERS: PCP Legal Medicine; Visit Provider Nurse Practitioner Gerontology
DX: E87.6 Hypokalemia (principal)
CPT/HCPCS: 80053; 85025

== ENCOUNTER 2024-03-17 18:39 | Outpatient (REF) | payer MEDICARE, MEDICAID, SELFPAY ==
[2024-03-17 17:50] LABS: Abs Immature Grans 0.19 10^3/uL (0.0-0.06); Absolute Lymphocyte Count 1.46 10^3/uL (1.2-3.4); Absolute Monocyte Count 0.37 10^3/uL (0.1-0.8); Absolute Neutrophil Count 16.42 10^3/uL (1.2-6.7); Basophils % 0.2 %; HCT 35.3 % (40.0-50.0); HGB 11.7 g/dL (13.5-17.5); Lymphocytes % 7.9 %; MCHC 33.1 % (32.0-36.0); MCV 99 fL (80-95); MPV 11.9 fL (8.0-11.0); Neutrophils % 88.9 %; Platelet Count 256 10^3/uL (130-400); RBC 3.55 10^6/uL (4.36-5.78); RDW 13.2 % (11.8-14.1); RDW-SD 47.9 fL; WBC 18.47 10^3/uL (4.4-10.8)
[2024-03-17 17:51] LABS: Absolute Basophil Count 0.04 10^3/uL (0.0-0.2)
[2024-03-17 18:08] LABS: ALT 20 U/L (16-63); AST 18 U/L (15-37); Albumin 2.8 g/dL (3.4-5.0); Alkaline Phosphatase 122 U/L (46-116); BUN 17 mg/dL (7-18); Bilirubin, Total 0.25 mg/dL (0.2-1.0); CREATININE 0.7 mg/dL (0.70-1.30); Calcium 8.7 mg/dL (8.5-10.1); Chloride 100 mmol/L (98-107); Estimated GFR 97.29 (mL/min/1.73m2); Glucose 182 mg/dL (74-106); NT-proBNP 903 pg/mL (<300); Potassium 3.7 mmol/L (3.5-5.1); Sodium 135 mmol/L (136-145); Total Protein 7.1 g/dL (6.4-8.2)
== END 2024-03-17 18:40 | disposition home or self-care (01) ==
LOC: LBN 18:39
PROVIDERS: PCP Legal Medicine; Visit Provider Nurse Practitioner Gerontology
DX: I50.20 Unspecified systolic (congestive) heart failure (principal); E87.6 Hypokalemia; J18.9 Pneumonia, unspecified organism
CPT/HCPCS: 80053; 83880; 85025

== ENCOUNTER 2024-03-22 18:58 | Outpatient (REF) | payer MEDICARE, MEDICAID, SELFPAY ==
[2024-03-22 18:39] LABS: HGB 12.2 g/dL (13.5-17.5); MCH 32.8 pg (27.0-33.0); MCV 100 fL (80-95); MPV 11.9 fL (8.0-11.0); Platelet Count 258 10^3/uL (130-400); RBC 3.72 10^6/uL (4.36-5.78); RDW 14.4 % (11.8-14.1); RDW-SD 51.7 fL; WBC 20.45 10^3/uL (4.4-10.8)
[2024-03-22 18:51] LABS: Anion Gap 5.6 mmol/L (3-11); BUN 21 mg/dL (7-18); CO2 29.4 mmol/L (21.0-32.0); CREATININE 0.9 mg/dL (0.70-1.30); Chloride 102 mmol/L (98-107); Estimated GFR 90.18 (mL/min/1.73m2); Glucose 129 mg/dL (74-106); Potassium 4.3 mmol/L (3.5-5.1); Sodium 137 mmol/L (136-145)
[2024-03-22 19:08] LABS: Absolute Lymphocyte Count 2.25 10^3/uL (1.2-3.4); Absolute Monocyte Count 1.64 10^3/uL (0.1-0.8); Absolute Neutrophil Count 16.36 10^3/uL (1.2-6.7); Atypical Lymphocytes % 1 %; Myelocytes % 1
[2024-03-22 19:09] LABS: Diff Comment Manual Differential; RBC Morphology Normal
[2024-03-23 16:20] LABS: NT-proBNP 679 pg/mL (<300)
== END 2024-03-22 18:59 | disposition home or self-care (01) ==
LOC: LBN 18:58
PROVIDERS: PCP Legal Medicine; Visit Provider Nurse Practitioner Gerontology
DX: E87.6 Hypokalemia (principal)
CPT/HCPCS: 80048; 83880; 85025

== ENCOUNTER 2024-04-01 17:29 | Outpatient (REF) | payer MEDICARE, MEDICAID, SELFPAY ==
[2024-04-01 18:35] LABS: Abs Immature Grans 0.17 10^3/uL (0.0-0.06); Absolute Basophil Count 0.11 10^3/uL (0.0-0.2); Absolute Eosinophil Count 0.24 10^3/uL (0.0-0.7); Absolute Neutrophil Count 13.77 10^3/uL (1.2-6.7); Basophils % 0.6 %; Eosinophils % 1.3 %; HCT 40.6 % (40.0-50.0); HGB 13.4 g/dL (13.5-17.5); Immature Grans % 0.9 %; Lymphocytes % 13.6 %; MCV 100 fL (80-95); Neutrophils % 75.6 %; Platelet Count 215 10^3/uL (130-400); RBC 4.06 10^6/uL (4.36-5.78); RDW 14.3 % (11.8-14.1); RDW-SD 51.9 fL; WBC 18.21 10^3/uL (4.4-10.8)
[2024-04-01 18:39] LABS: Absolute Lymphocyte Count 2.48 10^3/uL (1.2-3.4); Absolute Monocyte Count 1.46 10^3/uL (0.1-0.8)
[2024-04-01 18:46] LABS: ALT 33 U/L (16-63); AST 27 U/L (15-37); Alkaline Phosphatase 109 U/L (46-116); Anion Gap 8.6 mmol/L (3-11); BUN 18 mg/dL (7-18); Bilirubin, Total 0.98 mg/dL (0.2-1.0); CO2 28.4 mmol/L (21.0-32.0); CREATININE 0.7 mg/dL (0.70-1.30); Chloride 100 mmol/L (98-107); Estimated GFR 97.29 (mL/min/1.73m2); Glucose 104 mg/dL (74-106); Magnesium 1.7 mg/dL (1.8-2.4); NT-proBNP 957 pg/mL (<300); Potassium 4.1 mmol/L (3.5-5.1); Sodium 137 mmol/L (136-145); Total Protein 6.7 g/dL (6.4-8.2)
== END 2024-04-01 17:30 | disposition home or self-care (01) ==
LOC: LBN 17:29
PROVIDERS: PCP Legal Medicine; Visit Provider Nurse Practitioner Gerontology
DX: J06.9 Acute upper respiratory infection, unspecified (principal)
CPT/HCPCS: 80053; 83735; 83880; 85025

== ENCOUNTER 2024-04-05 17:46 | Outpatient (REF) | payer MEDICARE, MEDICAID, SELFPAY ==
[2024-04-05 19:10] LABS: Abs Immature Grans 0.08 10^3/uL (0.0-0.06); Absolute Basophil Count 0.07 10^3/uL (0.0-0.2); Absolute Eosinophil Count 0.49 10^3/uL (0.0-0.7); Absolute Lymphocyte Count 2.43 10^3/uL (1.2-3.4); Absolute Neutrophil Count 8.25 10^3/uL (1.2-6.7); Basophils % 0.6 %; HCT 36.3 % (40.0-50.0); HGB 11.9 g/dL (13.5-17.5); Immature Grans % 0.7 %; Lymphocytes % 19.8 %; MCH 33.1 pg (27.0-33.0); MCHC 32.8 % (32.0-36.0); MCV 101 fL (80-95); MPV 12.1 fL (8.0-11.0); Monocytes % 7.7 %; Neutrophils % 67.2 %; Platelet Count 188 10^3/uL (130-400); RBC 3.59 10^6/uL (4.36-5.78); RDW 14.7 % (11.8-14.1); RDW-SD 54.1 fL; WBC 12.27 10^3/uL (4.4-10.8)
[2024-04-05 19:21] LABS: Absolute Monocyte Count 0.94 10^3/uL (0.1-0.8)
[2024-04-05 19:30] LABS: ALT 26 U/L (16-63); AST 19 U/L (15-37); Albumin 2.8 g/dL (3.4-5.0); Alkaline Phosphatase 109 U/L (46-116); Anion Gap 8.6 mmol/L (3-11); BUN 11 mg/dL (7-18); Bilirubin, Total 0.38 mg/dL (0.2-1.0); CO2 28.4 mmol/L (21.0-32.0); CREATININE 0.7 mg/dL (0.70-1.30); Calcium 8.6 mg/dL (8.5-10.1); Chloride 103 mmol/L (98-107); Estimated GFR 97.29 (mL/min/1.73m2); Glucose 99 mg/dL (74-106); NT-proBNP 664 pg/mL (<300); Potassium 4.5 mmol/L (3.5-5.1); Sodium 140 mmol/L (136-145); Total Protein 6.5 g/dL (6.4-8.2)
== END 2024-04-05 17:47 | disposition home or self-care (01) ==
LOC: LBN 17:46
PROVIDERS: PCP Legal Medicine; Visit Provider Nurse Practitioner Gerontology
DX: I50.20 Unspecified systolic (congestive) heart failure (principal)
CPT/HCPCS: 80053; 83880; 85025

== ENCOUNTER 2024-04-08 00:52 | Outpatient (CLI) | payer MEDICARE, MEDICAID, SELFPAY ==
--- NOTE | 2024-04-08 | DI.CT_ITS ---
Exam(s) CT ABDOMEN PELVIS WO EXAM: CT ABDOMEN PELVIS WO CLINICAL HISTORY: Splenomegaly. TECHNIQUE: Imaging Protocol: Axial computed tomography images with coronal and sagittal reformatted images were created and reviewed. Oral: / no COMPARISON: CT CT CHEST/ABD/PEL WO from 09/16/[address] CHEST PE CTA from 12/23/2023 FINDINGS: Lung Bases: Similar appearance of loculated pleural effusion at the left lung base and adjacent basil ar atelectasis. The pleura is number is again noted to be heavily calcified. Pacemaker. The hear t is enlarged. Mitral annular calcifications and aortic calcifications. Old lower rib fractures. Liver: Normal density. No suspicious mass. Gallbladder and biliary tract: Cholecystectomy. No biliary dilation. Pancreas: Normal density. No abnormal calcifications or inflammatory process. Spleen: Normal. Kidneys: Normal size, contour and axis. No radiodense stones. No obstructive uropathy. No suspicious masses seen. Adrenal glands: No masses seen. Lymph nodes: Within normal limits. Vasculature: Abdominal aorta non-dilated. Soft tissues: Gynecomastia. Fluid collections again noted arm at the right lateral soft subcutaneous fat at the level of the iliac crest. Fluid collection again noted posterior to the sacrum. Severe muscle atrophy. Small fat containing right inguinal hernia. Bladder: No wall thickening. No mass or calculi. Bowel: There is now marked distension of the sigmoid colon to approximately 15 cm in diameter. The s igmoid extends to the level of the transverse colon. There is no no bowel wall thickening or evidenc e of perforation. There is no definite evidence of volvulus. There is some narrowing at the distal rectosigmoid which could represent contraction however mass or stricture and not excluded. The kait endix is normal. Sigmoid diverticulosis. No evidence of diverticulitis. Moderate quantity of stool . Peritoneal cavity: No ascites. No focal collection. No mesenteric inflammatory response. Reproductive organs: Unremarkable. Bones: Similar appearance of a small erosion of the posterior left ilium. There is adjacent to the f luid collection. Degenerative changes are and scoliosis are again noted in the spine. IMPRESSION: Marked distension of the sigmoid colon without evidence for a volvulus. No wall thickening. Mass or stricture is not excluded. Colonoscopy is recommended. No evidence of splenomegaly. Stable findings of a loculated pleural fluid collection at the left lower lobe and heavily calcified pleura. RADIATION DOSE DELIVERED: 959.33mGy.cm Total DLP DATA REPOSITORY: All CT scans at this facility are submitted to the National Radiology Data Registry (NRDR) Dose Index Registry (DIR) with the [employer] (ACR). RADIATION OPTIMIZATION: All CT scans at this facility use at least one of these dose optimization te chniques: automated exposure control; mA and/or kV adjustment per patient size (includes targeted exa ms where dose is matched to clinical indication); or iterative reconstruction.
== END 2024-04-08 01:12 ==
PROVIDERS: PCP Legal Medicine; Visit Provider Nurse Practitioner Gerontology
DX: R16.1 Splenomegaly, not elsewhere classified (principal)
CPT/HCPCS: 74176

== ENCOUNTER 2024-04-12 18:18 | Outpatient (REF) | payer MEDICARE, MEDICAID, SELFPAY ==
[2024-04-12 18:14] LABS: HCT 37.6 % (40.0-50.0); HGB 12.2 g/dL (13.5-17.5); MCH 32.4 pg (27.0-33.0); MCHC 32.4 % (32.0-36.0); MCV 100 fL (80-95); MPV 11.5 fL (8.0-11.0); Platelet Count 303 10^3/uL (130-400); RBC 3.76 10^6/uL (4.36-5.78); RDW 14.2 % (11.8-14.1); WBC 14.75 10^3/uL (4.4-10.8)
[2024-04-12 18:32] LABS: Anion Gap 9.4 mmol/L (3-11); BUN 16 mg/dL (7-18); CO2 27.6 mmol/L (21.0-32.0); CREATININE 0.7 mg/dL (0.70-1.30); Chloride 100 mmol/L (98-107); Estimated GFR 97.29 (mL/min/1.73m2); Glucose 98 mg/dL (74-106); NT-proBNP 881 pg/mL (<300); Potassium 3.6 mmol/L (3.5-5.1); Sodium 137 mmol/L (136-145)
[2024-04-12 19:27] LABS: Absolute Eosinophil Count 0.59 10^3/uL (0.0-0.7); Absolute Lymphocyte Count 2.66 10^3/uL (1.2-3.4); Absolute Monocyte Count 0.89 10^3/uL (0.1-0.8); Absolute Neutrophil Count 10.62 10^3/uL (1.2-6.7); Atypical Lymphocytes % 2 %
[2024-04-12 19:28] LABS: Diff Comment Manual Differential; Macrocytosis 1+
== END 2024-04-12 18:19 | disposition home or self-care (01) ==
LOC: LBN 18:18
PROVIDERS: PCP Legal Medicine; Visit Provider Nurse Practitioner Gerontology
DX: J44.1 Chronic obstructive pulmonary disease with (acute) exacerbation (principal); E87.6 Hypokalemia
CPT/HCPCS: 80048; 83880; 85025

== ENCOUNTER 2024-04-15 18:00 | Outpatient (REF) | payer MEDICARE, MEDICAID, SELFPAY ==
[2024-04-15 17:58] LABS: Abs Immature Grans 0.12 10^3/uL (0.0-0.06); Absolute Basophil Count 0.07 10^3/uL (0.0-0.2); Absolute Eosinophil Count 0.44 10^3/uL (0.0-0.7); Absolute Lymphocyte Count 2.69 10^3/uL (1.2-3.4); Absolute Neutrophil Count 9.35 10^3/uL (1.2-6.7); Basophils % 0.5 %; Eosinophils % 3.1 %; HCT 36.9 % (40.0-50.0); HGB 12.2 g/dL (13.5-17.5); Immature Grans % 0.9 %; Lymphocytes % 19.1 %; MCH 33.2 pg (27.0-33.0); MCHC 33.1 % (32.0-36.0); MCV 100 fL (80-95); MPV 11.5 fL (8.0-11.0); Monocytes % 10.1 %; Neutrophils % 66.3 %; Platelet Count 299 10^3/uL (130-400); RBC 3.68 10^6/uL (4.36-5.78); RDW 14.1 % (11.8-14.1); RDW-SD 51.6 fL
[2024-04-15 17:59] LABS: Absolute Monocyte Count 1.42 10^3/uL (0.1-0.8)
[2024-04-15 18:16] LABS: NT-proBNP 1035 pg/mL (<300)
== END 2024-04-15 18:01 | disposition home or self-care (01) ==
LOC: LBN 18:00
PROVIDERS: PCP Legal Medicine; Visit Provider Nurse Practitioner Gerontology
DX: I50.20 Unspecified systolic (congestive) heart failure (principal); J44.9 Chronic obstructive pulmonary disease, unspecified
CPT/HCPCS: 83880; 85025

== ENCOUNTER 2024-04-19 19:28 | Outpatient (REF) | payer MEDICARE, MEDICAID, SELFPAY ==
[2024-04-19 19:39] LABS: Anion Gap 9.9 mmol/L (3-11); BUN 14 mg/dL (7-18); CO2 27.1 mmol/L (21.0-32.0); CREATININE 0.7 mg/dL (0.70-1.30); Calcium 9.4 mg/dL (8.5-10.1); Chloride 101 mmol/L (98-107); Estimated GFR 97.29 (mL/min/1.73m2); Glucose 123 mg/dL (74-106); NT-proBNP 824 pg/mL (<300); Potassium 3.2 mmol/L (3.5-5.1); Sodium 138 mmol/L (136-145)
== END 2024-04-19 19:29 | disposition home or self-care (01) ==
LOC: LBN 19:28
PROVIDERS: PCP Legal Medicine; Visit Provider Nurse Practitioner Gerontology
DX: I50.20 Unspecified systolic (congestive) heart failure (principal); E87.6 Hypokalemia
CPT/HCPCS: 80048; 83880

== ENCOUNTER 2024-04-26 19:23 | Outpatient (REF) | payer MEDICARE, MEDICAID, SELFPAY ==
[2024-04-26 19:26] LABS: Abs Immature Grans 0.42 10^3/uL (0.0-0.06); HCT 42.3 % (40.0-50.0); HGB 14.2 g/dL (13.5-17.5); MCH 32.9 pg (27.0-33.0); MCHC 33.6 % (32.0-36.0); MCV 98 fL (80-95); MPV 12.1 fL (8.0-11.0); Platelet Count 265 10^3/uL (130-400); RBC 4.31 10^6/uL (4.36-5.78); RDW 13.8 % (11.8-14.1); RDW-SD 50.5 fL; WBC 21.56 10^3/uL (4.4-10.8)
[2024-04-26 19:46] LABS: Absolute Lymphocyte Count 2.16 10^3/uL (1.2-3.4); Absolute Neutrophil Count 18.33 10^3/uL (1.2-6.7); Atypical Lymphocytes % 0 %; Bands % 1 %
[2024-04-26 19:47] LABS: Absolute Monocyte Count 1.08 10^3/uL (0.1-0.8); Diff Comment Manual Differential; RBC Morphology Normal
[2024-04-26 20:17] LABS: BUN 18 mg/dL (7-18); CREATININE 0.6 mg/dL (0.70-1.30); Chloride 98 mmol/L (98-107); Estimated GFR 101.93 (mL/min/1.73m2); Glucose 119 mg/dL (74-106); Potassium 3.9 mmol/L (3.5-5.1); Sodium 135 mmol/L (136-145)
[2024-04-27 01:08] LABS: NT-proBNP 717 pg/mL (<300)
== END 2024-04-26 19:24 | disposition home or self-care (01) ==
LOC: LBN 19:23
PROVIDERS: PCP Legal Medicine; Visit Provider Nurse Practitioner Gerontology
DX: I50.33 Acute on chronic diastolic (congestive) heart failure (principal); J18.9 Pneumonia, unspecified organism; E87.6 Hypokalemia
CPT/HCPCS: 80048; 83880; 85025

== ENCOUNTER 2024-04-29 14:05 | Emergency (ER) | payer MEDICARE, MEDICAID, SELFPAY ==
[2024-04-29 13:55] VITALS: BP 150/134; PULSE 71; RESP 23; TEMP 36.8; O2SAT 93
--- NOTE | 2024-04-29 14:00 | DI.CT_ITS ---
Exam(s) CT CHEST W EXAM: CT CHEST W CLINICAL HISTORY: Hx pleural effusion, c/f PNA with leukocytosis TECHNIQUE: Imaging Protocol: Axial computed tomography images with coronal and sagittal reformatted images were created and reviewed. Computer aided detection (CAD) was utilized. CONTRAST MATERIAL: Intravenous: Omnipaque 350Contrast volume:70 mL. COMPARISON: CT CT CHEST PE CTA from 12/23/2023 FINDINGS: Tracheobronchial tree: Patent where visualized. No evidence of bronchiectasis. Pulmonary parenchyma: There is a persistent left pleural effusion which appears at least partly in ca psulated. There is near complete compressive atelectasis again seen in the left lower lobe. No new infiltrates are present. Mediastinum and Taylor: No dominant adenopathy or fluid collection. The esophagus is unremarkable. Thyroid gland: Unremarkable. Pleura: There is no right pleural effusion. There is again seen extensive pleural calcification pred ominantly involving the right hemithorax. Pneumothorax is present. Heart: Cardiomegaly. Coronary artery calcification is present. Mitral calcification is present. No pericardial effusion. Aorta: There is an ascending thoracic aortic aneurysm measuring 4.8 x 4.5 cm. There is no evidence o f dissection. Atherosclerotic calcification is present. Pulmonary arteries: No pulmonary emboli are identified. Upper abdomen: Unremarkable. Lymph nodes: Within normal limits. Bones: Within normal limits for the patient's age. There is an old healed right clavicular fracture. There are old healed bilateral rib fractures. Tubes, Catheters, and Lines: There is a cardiac pacing device in the left chest wall. Soft tissues: There is gynecomastia bilaterally. IMPRESSION: 1. Stable in capsulated left pleural effusion and left lower lobe consolidation. 2. No acute pulmonary process. 3. Incidental finding seen in the chest as described above. RADIATION DOSE DELIVERED: 608.22mGy.cm Total DLP DATA REPOSITORY: All CT scans at this facility are submitted to the National Radiology Data Registry (NRDR) Dose Index Registry (DIR) with the [employer] ([employer]). RADIATION OPTIMIZATION: All CT scans at this facility use at least one of these dose optimization te chniques: automated exposure control; mA and/or kV adjustment per patient size (includes targeted exa ms where dose is matched to clinical indication); or iterative reconstruction.
--- NOTE | 2024-04-29 14:09 | ED.GENADUL_ITS ---
Discharge Plan Disposition Patient Disposition: Home Condition: Stable Discharge Details Clinical Impression: Left lower lobe pneumonia, HTN (hypertension) with goal to be determined, Trapped lung, Hypertension, Restrictive lung disease Primary Care Provider: Monalisa Dong ED Provider: Zee Segovia Home Meds and New Rx's Prescriptions: New amoxicillin-pot clavulanate 875-125 mg tablet 1 tab PO Q12H 5 Days Qty: 10 0RF azithromycin 250 mg tablet 250 mg PO DAILY 4 Days Qty: 4 0RF Rx Instructions: start on day 2 of therapy (04/29/2024) No Action fentanyl 12 mcg/hr patch 72 hour 1 patch transdermal Q72H Patient Comments: not on med rec list from [facility] ibuprofen 200 mg tablet 200 mg PO BID PRN Dupixent Pen 300 mg/2 mL pen injector 300 mg subcut Q2W loratadine 10 mg tablet 10 mg PO DAILY benzonatate 100 mg capsule 100 mg PO BID albuterol sulfate 90 mcg/actuation aerosol powdr breath activated 2 inh inhalation TID Rx Instructions: *and* q4h PRN calcium carbonate 215 mg calcium (500 mg) tablet,chewable 1,000 mg PO Q6H PRN Patient Comments: not on med rec list from the [facility] fluticasone propionate 50 mcg/actuation spray,suspension 1 spray intranasal BID Rx Instructions: administer into each nostril Ultra B-100 Complex Tablet Extended Release 1 tab PO DAILY pantoprazole 40 mg tablet,delayed release (DR/EC) 40 mg PO DAILY polyethylene glycol 3350 [Miralax] 17 gram powder in packet 17 g PO DAILY PRN sennosides-docusate sodium [Senexon-S] 8.6-50 mg tablet 2 tab-cap PO DAILY sertraline 25 mg tablet 50 mg PO DAILY metoprolol succinate 200 mg tablet extended release 24 hr 200 mg PO DAILY Rx Instructions: Hold for HR < 60 Trelegy Ellipta 200-62.5-25 mcg blister with device 1 inh inhalation DAILY ipratropium-albuterol 0.5 mg-3 mg(2.5 mg base)/3 mL solution for nebulization 3 ml inhalation Q12H PRN PRN Zenpep 5,000-17,000- 24,000 unit capsule,delayed release(DR/EC) 1 cap PO TID benzonatate 100 mg capsule 100 mg PO TID melatonin 3 mg capsule 3 mg PO HS beer 1 unit PO 1XD PRN Rx Instructions: may have 2 beers by mouth daily 12 or 16oz,only 1 beer if 24oz container colestipol 1 gram tablet 2 g PO BID dextromethorphan-guaifenesin [Tussin DM] 10-100 mg/5 mL Liquid 10 ml PO Q4H PRN magnesium gluconate 500 mg Tablet 500 mg PO BID cholecalciferol (vitamin D3) [Vitamin D3] 125 mcg (5,000 unit) tablet 5,000 unit PO .weekly Patient Comments: not on med rec list from [facility] potassium chloride [K-Tab] 20 mEq tablet extended release 40 meq PO DAILY L.acidoph,saliva-B.bif-S.therm [Acidophilus Probiotic Blend] 175 mg capsule 1 cap PO BID docusate sodium [Colace] 100 mg capsule 200 mg PO DAILY furosemide [Lasix] 20 mg tablet 60 mg PO BID spironolactone 25 mg tablet 50 mg PO DAILY Qty: 0 0RF acetaminophen [Tylenol Extra Strength] 500 mg tablet 1,000 mg PO Q12H Qty: 0 0RF sodium chloride 1,000 mg tablet,soluble 1,000 mg PO DAILY aspirin [Children's Aspirin] 81 mg Tablet,Chewable 81 mg PO DAILY Qty: 30 0RF atorvastatin 40 mg Tablet 80 mg PO DAILY Qty: 60 0RF clopidogrel 75 mg Tablet 75 mg PO DAILY Qty: 18 0RF Patient Comments: not on medication list from the [facility] guaifenesin [Mucus Relief ER] 600 mg Tablet Extended Release 12hr 600 mg PO BID Qty: 60 0RF Discharge Instructions Instructions: Pneumonia, Adult ED Additional Instructions: You were seen in the emergency department today for evaluation of an elevated white count. In our department he had a full physical examination performed, had laboratory studies that were reassuring though did demonstrate that your white count remains elevated. You had a CT of your chest that shows that your pleural effusion, the collection of fluid is stable, but you do still have consolidation in your left lower lung and given your symptoms we have elected to treat you for pneumonia. You will be started on 2 different antibiotics, please take all this medication until it is gone even if you start to feel better. Please follow-up with your primary care provider in the next few days to discuss this visit and any symptoms that change, worsen, or persist. Thank you for allowing us to be part of your care. HPI General Mode of arrival: EMS . Date/Time Provider Initiated Documentation: 04/29/24 14:06 . Limitations to Documentation: no limitations . Information obtained by: patient, EMS and old records reviewed . HPI Narrative: HPI: This is a 73-year-old male patient with a past medical history significant for CHF, restrictive lung disease, history of a loculated pleural effusion that is chronic, trapped lung syndrome, hypertension, pacemaker, CAD, and history of CVA who is presenting for evaluation of leukocytosis, shortness of breath, and cough. The patient reports that shortness of breath has been worsening for the last 3 weeks, he has had a cough productive of sputum, does not wear oxygen and has been taking all of his breathing treatments at the care facility where he resides. He states that he when he coughs he does sometimes have chest pain. States that he had routine labs drawn by his provider which revealed a white blood cell count of 25, prompting them to send him here for evaluation. They are concerned for aspiration pneumonia given the patient's history. The patient reports that he does not believe he has had a fever, states that he has experienced some upper abdominal pain in the context of this illness, no nausea or vomiting, change in stool or urine habits. He was started on a course of cefpodoxime at the end of March which he completed on April 08. Exam: Gen: Awake and alert, in no apparent distress, appears chronically unwell HEENT: Non-icteric sclera Neck: Supple Lungs: No apparent respiratory distress, normal respiratory effort. Lung sounds diminished in the bases bilaterally with some scattered crackles, no wheezing, rales CV: Appears well perfused, heart with regular rate and rhythm, strong distal pulses Abdomen: Non-distended, soft, nontender MSK: Moves 4 extremities without apparent limitation in ROM, no peripheral edema appreciated, no unilateral leg swelling Skin: Visualized skin without rashes, cyanosis. Neuro: Normal Gait, no obvious focal deficits or facial asymmetry. Speaks in full, clear sentences. Psych: Appropriate for situation. MDM: This is a 73-year-old male patient presenting for evaluation of leukocytosis, shortness of breath and cough. My differential includes but is not limited to pneumonia, bronchitis, viral upper respiratory infection, certainly considered empyema and infection of the patient's known chronic pleural effusion. Considered noninfectious etiologies including reactive airway disease exacerbation, CHF exacerbation with pulmonary edema, worsening or new pleural effusion. Considered ACS, metabolic and electrolyte derangements, kidney injury, liver disease. We will obtain laboratory studies to include CBC, CMP, magnesium, troponin, BNP, Fluvid, and also obtain a urinalysis to complete the infectious workup. We will obtain blood cultures at this time I do not see any dynamic instability that increases my concern for sepsis or bacteremia. The patient has difficulty standing and ambulating, and had a complex long history from a structural standpoint, and I feel that an x-ray may be too limited to offer the diagnostic clarity that we need, and for this reason we will proceed directly to CT with contrast of the chest. ED Course: I reviewed the patient's laboratory studies, which do show a leukocytosis to 17, stable anemia at 13.1, no thrombocytopenia. Chemistry panel without electrolyte derangements, severe kidney injury, or liver dysfunction other than a mildly low magnesium at 1.7 which does not require urgent repletion. BNP is at patient's baseline at 600, troponin negative, lactate is low at 1.2. COVID and influenza test negative. I reviewed the patient's CT chest, which shows a stable left lower lobe consolidation and a stable loculated pleural effusion. There are no significant changes from his priors, and given the stability of the pleural effusion I do not believe that he requires drainage or thoracentesis. Given his symptoms, I do think it is worthwhile to treat this patient for pneumonia especially with his significant risk factors. However, he is hemodynamically appropriate, afebrile, and without hypoxia and I feel that this can be appropriately done with oral antibiotics at his care facility. I did provide him with his first dose of Augmentin and azithromycin, and at this time, the patient has had a full medical evaluation and is safe for discharge to home. They are hemodynamically stable, ambulatory, and tolerating PO. They are understanding of the follow-up plan and return precautions. They left our facility without incident. Zee Segovia MD Related Data Home Medications ?Medication ?Instructions ?Recorded ?Confirmed albuterol sulfate 90 mcg/actuation 2 inh inhalation TID 03/29/21 04/29/24 breath activated powder inhaler calcium carbonate 1,000 mg PO Q6H PRN 03/29/21 04/29/24 fluticasone propionate 50 1 spray intranasal BID 03/29/21 04/29/24 mcg/actuation nasal spray,suspension pantoprazole 40 mg tablet,delayed 40 mg PO DAILY 03/29/21 04/29/24 release polyethylene glycol 3350 17 gram 17 g PO DAILY PRN 03/29/21 04/29/24 oral powder packet (Miralax) sennosides 8.6 mg-docusate sodium 2 tab-cap PO DAILY 03/29/21 04/29/24 50 mg tablet (Senexon-S) vitamin B complex (Ultra B-100 1 tab PO DAILY 03/29/21 04/29/24 Complex ER tablet,extended release) metoprolol succinate 200 mg 200 mg PO DAILY 05/02/21 04/29/24 tablet,extended release 24 hr melatonin 3 mg capsule 3 mg PO HS 05/10/21 04/29/24 beer 1 unit PO 1XD PRN 10/18/21 04/29/24 colestipol 1 gram tablet 2 g PO BID 12/06/21 04/29/24 fentanyl 12 mcg/hr transdermal 1 patch transdermal Q72H 04/29/22 04/29/24 patch dextromethorphan-guaifenesin 10 10 ml PO Q4H PRN 08/28/22 04/29/24 mg-100 mg/5 mL oral liquid (Tussin DM) magnesium gluconate 500 mg tablet 500 mg PO BID 08/28/22 04/29/24 benzonatate 100 mg capsule 100 mg PO BID 03/27/23 04/29/24 loratadine 10 mg tablet 10 mg PO DAILY 03/27/23 04/29/24 fluticasone fur. 200 mcg-umeclid 1 inh inhalation DAILY 06/18/23 04/29/24 62.5 mcg-vilant 25 mcg inhalat.powder (Trelegy Ellipta) ipratropium 0.5 mg-albuterol 3 mg 3 ml inhalation Q12H PRN PRN 06/18/23 04/29/24 (2.5 mg base)/3 mL nebulization soln kiihwy-dkcwazfm-icjeacy 1 cap PO TID 06/18/23 04/29/24 5,000-17,000-24,000 unit capsule, delayed rel (Zenpep) sertraline 25 mg tablet 50 mg PO DAILY 06/18/23 04/29/24 dupilumab 300 mg/2 mL subcutaneous 300 mg subcut Q2W 07/10/23 04/29/24 pen injector (Dupixent) ibuprofen 200 mg tablet 200 mg PO BID PRN 07/10/23 04/29/24 cholecalciferol (vitamin D3) 125 5,000 unit PO .weekly 08/11/23 04/29/24 mcg (5,000 unit) tablet (Vitamin D3) acetaminophen 500 mg tablet 1,000 mg (2 x 500 mg) PO Q12H #0 08/19/23 04/29/24 (Tylenol Extra Strength) tabs spironolactone 25 mg tablet 50 mg (2 x 25 mg) PO DAILY #0 tabs 08/19/23 04/29/24 sodium chloride 1,000 mg soluble 1,000 mg PO DAILY 12/15/23 04/29/24 tablet aspirin 81 mg chewable tablet 81 mg PO DAILY #30 tabs 12/18/23 04/29/24 (Children's Aspirin) atorvastatin 40 mg tablet 80 mg (2 x 40 mg) PO DAILY #60 tabs 12/18/23 04/29/24 clopidogrel 75 mg tablet 75 mg PO DAILY #18 tabs 12/18/23 04/29/24 guaifenesin 600 mg tablet, 600 mg PO BID #60 tabs 12/18/23 04/29/24 extended release 12 hr (Mucus Relief ER) L.acidophil,salivari-Bifido 1 cap PO BID 12/23/23 04/29/24 bifidum-Strep thermoph 175 mg capsule (Acidophilus Probiotic Blend) docusate sodium 100 mg capsule 200 mg PO DAILY 12/23/23 04/29/24 (Colace) furosemide 20 mg tablet (Lasix) 60 mg PO BID 12/23/23 04/29/24 potassium chloride 20 mEq 40 meq PO DAILY 12/23/23 04/29/24 tablet,extended release (K-Tab) benzonatate 100 mg capsule 100 mg PO TID Cough 02/04/24 04/29/24 amoxicillin 875 mg-potassium 1 tab PO Q12H 5 days #10 tabs 04/29/24 clavulanate 125 mg tablet azithromycin 250 mg tablet 250 mg PO DAILY 4 days #4 tabs 04/29/24 Previous Rx's ?Medication ?Instructions ?Recorded acetaminophen 500 mg tablet 1,000 mg (2 x 500 mg) PO Q12H #0 08/19/23 (Tylenol Extra Strength) tabs spironolactone 25 mg tablet 50 mg (2 x 25 mg) PO DAILY #0 tabs 08/19/23 aspirin 81 mg chewable tablet 81 mg PO DAILY #30 tabs 12/18/23 (Children's Aspirin) atorvastatin 40 mg tablet 80 mg (2 x 40 mg) PO DAILY #60 tabs 12/18/23 clopidogrel 75 mg tablet 75 mg PO DAILY #18 tabs 12/18/23 guaifenesin 600 mg tablet, 600 mg PO BID #60 tabs 12/18/23 extended release 12 hr (Mucus Relief ER) amoxicillin 875 mg-potassium 1 tab PO Q12H 5 days #10 tabs 04/29/24 clavulanate 125 mg tablet azithromycin 250 mg tablet 250 mg PO DAILY 4 days #4 tabs 04/29/24 Allergies Allergy/AdvReac Type Severity Reaction Status Date / Time No Known Allergies Allergy Verified 04/29/24 14:52 General Stated Complaint: RespSymp INDY: 3 Course Vital Signs Vital signs: Vital Signs Temperature 36.8 C 04/29/24 13:55 Pulse 71 04/29/24 13:55 Respiratory Rate 23 04/29/24 13:55 Blood Pressure 150/134 H 04/29/24 13:55 Pulse Oximetry 93 04/29/24 13:55 Temperature 36.8 C 04/29/24 13:55 Temperature Source Oral 04/29/24 13:55 Pulse 71 04/29/24 13:55 Respiratory Rate 23 04/29/24 13:55 Blood Pressure 150/134 H 04/29/24 13:55 Pulse Oximetry 93 04/29/24 13:55 Oxygen Delivery Method Room Air 04/29/24 13:55 Oxygen Flow Rate 0 04/29/24 13:55 Pain Level 0 04/29/24 13:55 Lab/Test Results Lab/Test Results: 04/29/24 14:06 Blood Blood Culture - Pending 04/29/24 14:06 Blood Blood Culture - Pending Medical Decision Making Quality:SDOH Health Related Social Needs: No Data to Display PFSH All Active Problems (Updated 04/29/24 @ 15:56 by Zee Segovia MD) CVA (cerebral vascular accident) (Acute) Acute right-sided weakness (Acute) Dementia (Chronic) Hyponatremia (Chronic) CHF (congestive heart failure) (Chronic) Shortness of breath (Acute) Nail dystrophy (Acute) Restrictive lung disease (Acute) Asthma (Chronic) Shortness of breath (Acute) Sebaceous cyst (Acute) Nasal obstruction (Acute) External nasal lesion (Acute) Hypertension (Chronic) Left lower lobe pneumonia (Acute) Bloating (Acute) Heme positive stool (Acute) Infected sebaceous cyst of skin (Acute) Trapped lung (Acute) Sacroiliitis (Acute) Depression (Chronic) Lymphedema (Acute) HTN (hypertension) with goal to be determined (Chronic) Obesity (Chronic) DNR (do not resuscitate) (Acute) Presence of cardiac pacemaker (Chronic) Oncopeptides PPM MRI model L111 Serial # [id number] placed dual chamber 04/30/2017 for CHB at [facility]. 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 Most likely this is inflammatory tissue and not actually fluid. pt has had multiple taps. He was on a prolonged course of IV abx and has failed to resolve. This is a sequelae of this pericardial tamponade following disruption of his RA lead from pacemaker insertion. Hyponatremia, hypo-osmolarity, or hypo-osmolar hyponatremia Surgical History S/P laparoscopic cholecystectomy History of permanent cardiac pacemaker placement with subsequent repositioning Family History Son Alcohol use disorder Social History Smoking/Tobacco Use Status: Former Tobacco Use tobacco type: smokeless tobacco Smoking risk assessment performed?: Yes Alcohol Intake: current Alcohol Intake frequency: 0-2 drinks per day Alcohol type: beer Drug use: Never Substance use type: does not use Housing: care home Pets and animals: No Do you feel safe at home: Yes Do you feel safe in your relationship?: Yes Additional Social history: 2 sons cirrhosis/EtOH, has been in [facility]
[2024-04-29 14:23] LABS: Lactate 1.2 mmol/L (<or=2.0)
[2024-04-29 14:32] LABS: Abs Immature Grans 0.29 10^3/uL (0.0-0.06); Absolute Basophil Count 0.05 10^3/uL (0.0-0.2); Absolute Eosinophil Count 0.04 10^3/uL (0.0-0.7); Absolute Monocyte Count 1.17 10^3/uL (0.1-0.8); Basophils % 0.3 %; Eosinophils % 0.2 %; HCT 39.4 % (40.0-50.0); HGB 13.1 g/dL (13.5-17.5); Immature Grans % 1.6 %; Lymphocytes % 10.2 %; MCH 32.8 pg (27.0-33.0); MCHC 33.2 % (32.0-36.0); MCV 99 fL (80-95); MPV 11.4 fL (8.0-11.0); Monocytes % 6.6 %; Neutrophils % 81.1 %; Platelet Count 225 10^3/uL (130-400); RBC 3.99 10^6/uL (4.36-5.78); RDW 13.8 % (11.8-14.1); WBC 17.68 10^3/uL (4.4-10.8)
[2024-04-29 14:48] LABS: INR 1.1 (0.9-1.1); Prothrombin Time 10.7 sec (9.1-11.1)
[2024-04-29 14:51] LABS: Absolute Neutrophil Count 14.34 10^3/uL (1.2-6.7)
[2024-04-29 14:52] LABS: ALT 41 U/L (16-63); AST 29 U/L (15-37); Albumin 2.7 g/dL (3.4-5.0); Alkaline Phosphatase 111 U/L (46-116); Anion Gap 7.7 mmol/L (3-11); BUN 20 mg/dL (7-18); Bilirubin, Total 0.32 mg/dL (0.2-1.0); CO2 29.3 mmol/L (21.0-32.0); CREATININE 0.8 mg/dL (0.70-1.30); Calcium 8.8 mg/dL (8.5-10.1); Chloride 102 mmol/L (98-107); Estimated GFR 93.45 (mL/min/1.73m2); Glucose 141 mg/dL (74-106); Magnesium 1.7 mg/dL (1.8-2.4); NT-proBNP 614 pg/mL (<300); Potassium 4.1 mmol/L (3.5-5.1); Sodium 139 mmol/L (136-145); Total Protein 7.1 g/dL (6.4-8.2); Troponin I 23 ng/L (<or=76)
[2024-04-29] MEDS: Omnipaque 350 MG/ML 100 ML BTL 70 ML IJ (15:18)
[2024-04-29] MEDS: Normal Saline - Diluent 50 ML VIAL IJ (15:19)
[2024-04-29 15:24] LABS: COVID-19 PCR Negative (Negative); Influenza A PCR Negative (Negative); Influenza B PCR Negative (Negative); RSV PCR Negative (Negative)
[2024-04-29 15:25] LABS: Source Nasopharynx
[2024-04-29 16:10] LABS: Troponin I 21 ng/L (<or=76)
[2024-04-29] MEDS: Amoxicillin 875/Clav. 125 TAB PO (16:15)
[2024-04-29] MEDS: Azithromycin 250 MG TAB 500 MG PO (16:15)
[2024-04-29 16:19] VITALS: BP 107/68; PULSE 78; RESP 18; TEMP 36.7; O2SAT 94
== END 2024-04-29 16:49 | disposition home or self-care (01) ==
LOC: ER 16:01
PROVIDERS: Emergency Provider Emergency Medicine; PCP Legal Medicine
DX: J18.9 Pneumonia, unspecified organism (principal); I10 Essential (primary) hypertension; J98.19 Other pulmonary collapse; J98.4 Other disorders of lung; Z95.0 Presence of cardiac pacemaker; Z86.79 Personal history of other diseases of the circulatory system
CPT/HCPCS: 80053; 87040; 87637; 99285; 71260; 83605; 83735; 83880; 84484; 85025; 85610; 99284; J3490

== ENCOUNTER 2024-05-03 18:23 | Outpatient (REF) | payer MEDICARE, MEDICAID, SELFPAY ==
[2024-05-03 19:17] LABS: Abs Immature Grans 0.23 10^3/uL (0.0-0.06); Absolute Basophil Count 0.05 10^3/uL (0.0-0.2); Absolute Monocyte Count 0.84 10^3/uL (0.1-0.8); Basophils % 0.3 %; HCT 41.1 % (40.0-50.0); HGB 13.9 g/dL (13.5-17.5); Immature Grans % 1.3 %; Lymphocytes % 9.6 %; MCH 32.9 pg (27.0-33.0); MCHC 33.8 % (32.0-36.0); MCV 97 fL (80-95); MPV 12.3 fL (8.0-11.0); Monocytes % 4.7 %; Neutrophils % 84.1 %; Platelet Count 222 10^3/uL (130-400); RBC 4.23 10^6/uL (4.36-5.78); RDW 13.9 % (11.8-14.1); RDW-SD 49.8 fL; WBC 17.84 10^3/uL (4.4-10.8)
[2024-05-03 19:23] LABS: Absolute Lymphocyte Count 1.71 10^3/uL (1.2-3.4)
[2024-05-03 19:44] LABS: Anion Gap 8.5 mmol/L (3-11); BUN 18 mg/dL (7-18); CO2 27.5 mmol/L (21.0-32.0); CREATININE 0.8 mg/dL (0.70-1.30); Calcium 9.3 mg/dL (8.5-10.1); Chloride 99 mmol/L (98-107); Estimated GFR 93.45 (mL/min/1.73m2); Glucose 147 mg/dL (74-106); NT-proBNP 808 pg/mL (<300); Potassium 4.1 mmol/L (3.5-5.1); Sodium 135 mmol/L (136-145)
== END 2024-05-03 18:24 | disposition home or self-care (01) ==
LOC: LBN 18:23
PROVIDERS: PCP Legal Medicine; Visit Provider Nurse Practitioner Gerontology
DX: I11.0 Hypertensive heart disease with heart failure (principal); I11.9 Hypertensive heart disease without heart failure; G89.4 Chronic pain syndrome
CPT/HCPCS: 80048; 83880; 85025

== ENCOUNTER 2024-05-12 23:40 | Outpatient (REF) | payer MEDICARE, MEDICAID, SELFPAY ==
[2024-05-12 23:25] LABS: Abs Immature Grans 0.19 10^3/uL (0.0-0.06); Absolute Lymphocyte Count 3.37 10^3/uL (1.2-3.4); Basophils % 0.3 %; Eosinophils % 0.4 %; HCT 41.8 % (40.0-50.0); HGB 13.7 g/dL (13.5-17.5); Lymphocytes % 17.5 %; MCH 33.3 pg (27.0-33.0); MCHC 32.8 % (32.0-36.0); MCV 102 fL (80-95); MPV 12.1 fL (8.0-11.0); Monocytes % 7.7 %; Neutrophils % 73.1 %; Platelet Count 182 10^3/uL (130-400); RBC 4.11 10^6/uL (4.36-5.78); RDW 14.4 % (11.8-14.1); RDW-SD 52.6 fL; WBC 19.27 10^3/uL (4.4-10.8)
[2024-05-12 23:26] LABS: Absolute Basophil Count 0.06 10^3/uL (0.0-0.2); Absolute Eosinophil Count 0.08 10^3/uL (0.0-0.7); Absolute Monocyte Count 1.48 10^3/uL (0.1-0.8); Absolute Neutrophil Count 14.09 10^3/uL (1.2-6.7)
[2024-05-12 23:43] LABS: ALT 52 U/L (16-63); AST 28 U/L (15-37); Albumin 3.1 g/dL (3.4-5.0); Alkaline Phosphatase 99 U/L (46-116); BUN 15 mg/dL (7-18); Bilirubin, Total 0.4 mg/dL (0.2-1.0); CREATININE 0.8 mg/dL (0.70-1.30); Calcium 9.1 mg/dL (8.5-10.1); Chloride 100 mmol/L (98-107); Estimated GFR 93.45 (mL/min/1.73m2); Glucose 102 mg/dL (74-106); NT-proBNP 604 pg/mL (<300); Potassium 4.1 mmol/L (3.5-5.1); Sodium 136 mmol/L (136-145); Total Protein 6.8 g/dL (6.4-8.2)
== END 2024-05-12 23:41 | disposition home or self-care (01) ==
LOC: LBN 23:40
PROVIDERS: PCP Legal Medicine; Visit Provider Nurse Practitioner Gerontology
DX: I50.22 Chronic systolic (congestive) heart failure (principal); E87.8 Other disorders of electrolyte and fluid balance, not elsewhere classified
CPT/HCPCS: 80053; 83880; 85025

== ENCOUNTER 2024-05-17 18:16 | Outpatient (REF) | payer MEDICARE, MEDICAID, SELFPAY ==
[2024-05-17 18:23] LABS: Abs Immature Grans 0.12 10^3/uL (0.0-0.06); Absolute Lymphocyte Count 2.83 10^3/uL (1.2-3.4); Basophils % 0.3 %; Eosinophils % 0.3 %; HCT 42.7 % (40.0-50.0); HGB 14.3 g/dL (13.5-17.5); Immature Grans % 0.7 %; Lymphocytes % 16.4 %; MCH 32.9 pg (27.0-33.0); MCHC 33.5 % (32.0-36.0); MCV 98 fL (80-95); MPV 12.2 fL (8.0-11.0); Monocytes % 10.3 %; Platelet Count 204 10^3/uL (130-400); RBC 4.34 10^6/uL (4.36-5.78); RDW 14.5 % (11.8-14.1); RDW-SD 51.8 fL; WBC 17.26 10^3/uL (4.4-10.8)
[2024-05-17 18:24] LABS: Absolute Basophil Count 0.05 10^3/uL (0.0-0.2); Absolute Eosinophil Count 0.05 10^3/uL (0.0-0.7); Absolute Monocyte Count 1.78 10^3/uL (0.1-0.8); Absolute Neutrophil Count 12.43 10^3/uL (1.2-6.7)
[2024-05-17 18:28] LABS: Anion Gap 10.2 mmol/L (3-11); BUN 22 mg/dL (7-18); CO2 26.8 mmol/L (21.0-32.0); CREATININE 0.8 mg/dL (0.70-1.30); Calcium 9.5 mg/dL (8.5-10.1); Chloride 97 mmol/L (98-107); Estimated GFR 93.45 (mL/min/1.73m2); Glucose 112 mg/dL (74-106); Potassium 3.8 mmol/L (3.5-5.1); Sodium 134 mmol/L (136-145)
[2024-05-17 18:35] LABS: Diff Comment Agrees w/ Instrument
[2024-05-17 18:36] LABS: RBC Morphology Normal
== END 2024-05-17 18:17 | disposition home or self-care (01) ==
LOC: LBN 18:16
PROVIDERS: PCP Legal Medicine; Visit Provider Nurse Practitioner Gerontology
DX: E87.6 Hypokalemia (principal)
CPT/HCPCS: 80048; 85025

== ENCOUNTER 2024-05-24 19:52 | Outpatient (REF) | payer MEDICARE, MEDICAID, SELFPAY ==
[2024-05-24 20:01] LABS: Abs Immature Grans 0.24 10^3/uL (0.0-0.06); Absolute Basophil Count 0.05 10^3/uL (0.0-0.2); Absolute Lymphocyte Count 1.57 10^3/uL (1.2-3.4); Absolute Monocyte Count 0.65 10^3/uL (0.1-0.8); Absolute Neutrophil Count 10.99 10^3/uL (1.2-6.7); Basophils % 0.4 %; HCT 39.4 % (40.0-50.0); HGB 13.1 g/dL (13.5-17.5); Immature Grans % 1.8 %; Lymphocytes % 11.6 %; MCH 33.4 pg (27.0-33.0); MCHC 33.2 % (32.0-36.0); MCV 101 fL (80-95); MPV 11.8 fL (8.0-11.0); Monocytes % 4.8 %; Neutrophils % 81.4 %; Platelet Count 197 10^3/uL (130-400); RBC 3.92 10^6/uL (4.36-5.78); RDW 14.2 % (11.8-14.1); RDW-SD 52.4 fL
[2024-05-24 20:18] LABS: Anion Gap 11.1 mmol/L (3-11); BUN 17 mg/dL (7-18); CO2 26.9 mmol/L (21.0-32.0); CREATININE 0.8 mg/dL (0.70-1.30); Calcium 8.6 mg/dL (8.5-10.1); Chloride 98 mmol/L (98-107); Estimated GFR 93.45 (mL/min/1.73m2); Glucose 139 mg/dL (74-106); Potassium 3.9 mmol/L (3.5-5.1); Sodium 136 mmol/L (136-145)
== END 2024-05-24 19:53 | disposition home or self-care (01) ==
LOC: LBN 19:52
PROVIDERS: PCP Legal Medicine; Visit Provider Nurse Practitioner Gerontology
DX: E87.6 Hypokalemia (principal); D72.9 Disorder of white blood cells, unspecified
CPT/HCPCS: 80048; 85025

== ENCOUNTER 2024-06-17 21:55 | Outpatient (REF) | payer MEDICARE, MEDICAID, SELFPAY ==
[2024-06-17 22:02] LABS: Abs Immature Grans 0.21 10^3/uL (0.0-0.06); Absolute Basophil Count 0.04 10^3/uL (0.0-0.2); Absolute Lymphocyte Count 1.58 10^3/uL (1.2-3.4); Absolute Monocyte Count 0.87 10^3/uL (0.1-0.8); Absolute Neutrophil Count 9.94 10^3/uL (1.2-6.7); Basophils % 0.3 %; HCT 40.4 % (40.0-50.0); HGB 13.1 g/dL (13.5-17.5); Immature Grans % 1.7 %; Lymphocytes % 12.5 %; MCH 33.3 pg (27.0-33.0); MCHC 32.4 % (32.0-36.0); MCV 103 fL (80-95); MPV 11.8 fL (8.0-11.0); Monocytes % 6.9 %; Neutrophils % 78.6 %; Platelet Count 196 10^3/uL (130-400); RBC 3.93 10^6/uL (4.36-5.78); RDW 14.6 % (11.8-14.1); RDW-SD 55.8 fL; WBC 12.64 10^3/uL (4.4-10.8)
[2024-06-17 22:11] LABS: Anion Gap 6.6 mmol/L (3-11); BUN 14 mg/dL (7-18); CO2 30.4 mmol/L (21.0-32.0); CREATININE 0.9 mg/dL (0.70-1.30); Calcium 8.7 mg/dL (8.5-10.1); Chloride 98 mmol/L (98-107); Estimated GFR 90.18 (mL/min/1.73m2); Glucose 125 mg/dL (74-106); Magnesium 1.7 mg/dL (1.8-2.4); NT-proBNP 971 pg/mL (<300); Potassium 4.6 mmol/L (3.5-5.1); Sodium 135 mmol/L (136-145)
== END 2024-06-17 21:56 | disposition home or self-care (01) ==
LOC: LBN 21:55
PROVIDERS: PCP Legal Medicine; Visit Provider Nurse Practitioner Gerontology
DX: I50.20 Unspecified systolic (congestive) heart failure (principal); E83.42 Hypomagnesemia; J44.9 Chronic obstructive pulmonary disease, unspecified; E87.6 Hypokalemia
CPT/HCPCS: 80048; 83735; 83880; 85025

== ENCOUNTER 2024-07-01 19:07 | Outpatient (REF) | payer MEDICARE, MEDICAID, SELFPAY ==
[2024-07-01 19:43] LABS: Abs Immature Grans 0.24 10^3/uL (0.0-0.06); Absolute Basophil Count 0.04 10^3/uL (0.0-0.2); Absolute Monocyte Count 0.74 10^3/uL (0.1-0.8); Absolute Neutrophil Count 10.06 10^3/uL (1.2-6.7); Basophils % 0.3 %; Eosinophils % 0.2 %; HCT 41.5 % (40.0-50.0); HGB 14.3 g/dL (13.5-17.5); Immature Grans % 1.8 %; Lymphocytes % 14.9 %; MCHC 34.5 % (32.0-36.0); MCV 99 fL (80-95); MPV 12.5 fL (8.0-11.0); Monocytes % 5.7 %; Neutrophils % 77.1 %; Platelet Count 163 10^3/uL (130-400); RBC 4.21 10^6/uL (4.36-5.78); RDW-SD 50.8 fL; WBC 13.05 10^3/uL (4.4-10.8)
[2024-07-01 19:44] LABS: Absolute Eosinophil Count 0.03 10^3/uL (0.0-0.7); Absolute Lymphocyte Count 1.94 10^3/uL (1.2-3.4)
[2024-07-01 19:49] LABS: Anion Gap 7.8 mmol/L (3-11); BUN 29 mg/dL (7-18); CO2 29.2 mmol/L (21.0-32.0); CREATININE 0.9 mg/dL (0.70-1.30); Calcium 9.1 mg/dL (8.5-10.1); Chloride 93 mmol/L (98-107); Estimated GFR 90.18 (mL/min/1.73m2); Glucose 121 mg/dL (74-106); Magnesium 2.1 mg/dL (1.8-2.4); Potassium 3.6 mmol/L (3.5-5.1); Sodium 130 mmol/L (136-145)
== END 2024-07-01 19:08 | disposition home or self-care (01) ==
LOC: LBN 19:07
PROVIDERS: PCP Legal Medicine; Visit Provider Nurse Practitioner Gerontology
DX: E83.42 Hypomagnesemia (principal); E87.8 Other disorders of electrolyte and fluid balance, not elsewhere classified; G89.4 Chronic pain syndrome
CPT/HCPCS: 80048; 83735; 85025

== ENCOUNTER 2024-07-19 18:17 | Outpatient (REF) | payer MEDICARE, MEDICAID, SELFPAY ==
[2024-07-19 19:44] LABS: Abs Immature Grans 0.16 10^3/uL (0.0-0.06); Absolute Basophil Count 0.04 10^3/uL (0.0-0.2); Absolute Monocyte Count 0.63 10^3/uL (0.1-0.8); Basophils % 0.3 %; HCT 37.2 % (40.0-50.0); HGB 12.4 g/dL (13.5-17.5); Immature Grans % 1.4 %; Lymphocytes % 11.2 %; MCH 33.6 pg (27.0-33.0); MCHC 33.3 % (32.0-36.0); MCV 101 fL (80-95); MPV 11.4 fL (8.0-11.0); Monocytes % 5.3 %; Neutrophils % 81.8 %; Platelet Count 205 10^3/uL (130-400); RBC 3.69 10^6/uL (4.36-5.78); RDW 14.4 % (11.8-14.1); RDW-SD 53.1 fL; WBC 11.83 10^3/uL (4.4-10.8)
[2024-07-19 19:45] LABS: Absolute Lymphocyte Count 1.32 10^3/uL (1.2-3.4); Absolute Neutrophil Count 9.68 10^3/uL (1.2-6.7)
[2024-07-19 20:04] LABS: ALT 33 U/L (16-63); AST 28 U/L (15-37); Albumin 2.9 g/dL (3.4-5.0); Alkaline Phosphatase 127 U/L (46-116); Anion Gap 7.8 mmol/L (3-11); BUN 21 mg/dL (7-18); Bilirubin, Total 0.4 mg/dL (0.2-1.0); CO2 33.2 mmol/L (21.0-32.0); CREATININE 0.9 mg/dL (0.70-1.30); Calcium 8.8 mg/dL (8.5-10.1); Chloride 95 mmol/L (98-107); Estimated GFR 90.18 (mL/min/1.73m2); Glucose 158 mg/dL (74-106); Magnesium 1.9 mg/dL (1.8-2.4); NT-proBNP 1085 pg/mL (<300); Potassium 3.9 mmol/L (3.5-5.1); Sodium 136 mmol/L (136-145); Total Protein 6.5 g/dL (6.4-8.2)
== END 2024-07-19 18:18 | disposition home or self-care (01) ==
LOC: LBN 18:17
PROVIDERS: PCP Legal Medicine; Visit Provider Nurse Practitioner Gerontology
DX: I50.22 Chronic systolic (congestive) heart failure (principal); E87.8 Other disorders of electrolyte and fluid balance, not elsewhere classified
CPT/HCPCS: 80053; 83735; 83880; 85025

== ENCOUNTER 2024-08-16 18:19 | Outpatient (REF) | payer MEDICARE, MEDICAID, SELFPAY ==
[2024-08-16 18:52] LABS: Abs Immature Grans 0.17 10^3/uL (0.0-0.06); Absolute Basophil Count 0.03 10^3/uL (0.0-0.2); Absolute Eosinophil Count 0.02 10^3/uL (0.0-0.7); Absolute Lymphocyte Count 1.61 10^3/uL (1.2-3.4); Absolute Monocyte Count 0.68 10^3/uL (0.1-0.8); Absolute Neutrophil Count 7.62 10^3/uL (1.2-6.7); Basophils % 0.3 %; Eosinophils % 0.2 %; HCT 38.3 % (40.0-50.0); HGB 12.7 g/dL (13.5-17.5); Immature Grans % 1.7 %; Lymphocytes % 15.9 %; MCH 33.8 pg (27.0-33.0); MCHC 33.2 % (32.0-36.0); MCV 102 fL (80-95); MPV 11.8 fL (8.0-11.0); Monocytes % 6.7 %; Neutrophils % 75.2 %; Platelet Count 235 10^3/uL (130-400); RBC 3.76 10^6/uL (4.36-5.78); RDW 14.2 % (11.8-14.1); RDW-SD 53.4 fL; WBC 10.13 10^3/uL (4.4-10.8)
[2024-08-16 19:07] LABS: ALT 42 U/L (16-63); AST 38 U/L (15-37); Albumin 3.1 g/dL (3.4-5.0); Alkaline Phosphatase 126 U/L (46-116); BUN 28 mg/dL (7-18); Bilirubin, Total 0.7 mg/dL (0.2-1.0); Calcium 8.8 mg/dL (8.5-10.1); Chloride 93 mmol/L (98-107); Estimated GFR 79.47 (mL/min/1.73m2); Glucose 114 mg/dL (74-106); NT-proBNP 1319 pg/mL (<300); Potassium 4.1 mmol/L (3.5-5.1); Sodium 133 mmol/L (136-145)
== END 2024-08-16 18:20 | disposition home or self-care (01) ==
LOC: LBN 18:19
PROVIDERS: PCP Legal Medicine; Visit Provider Nurse Practitioner Gerontology
DX: E87.8 Other disorders of electrolyte and fluid balance, not elsewhere classified (principal)
CPT/HCPCS: 80053; 83880; 85025

== ENCOUNTER 2024-08-23 18:05 | Outpatient (REF) | payer MEDICARE, MEDICAID, SELFPAY ==
[2024-08-23 19:04] LABS: Abs Immature Grans 0.27 10^3/uL (0.0-0.06); Absolute Basophil Count 0.05 10^3/uL (0.0-0.2); Absolute Lymphocyte Count 1.48 10^3/uL (1.2-3.4); Basophils % 0.3 %; Eosinophils % 0.1 %; HCT 38.5 % (40.0-50.0); HGB 12.4 g/dL (13.5-17.5); Immature Grans % 1.8 %; Lymphocytes % 9.7 %; MCH 33.5 pg (27.0-33.0); MCHC 32.2 % (32.0-36.0); MCV 104 fL (80-95); MPV 11.8 fL (8.0-11.0); Monocytes % 3.3 %; Neutrophils % 84.8 %; Platelet Count 232 10^3/uL (130-400); RDW 14.1 % (11.8-14.1); WBC 15.27 10^3/uL (4.4-10.8)
[2024-08-23 19:17] LABS: Absolute Eosinophil Count 0.02 10^3/uL (0.0-0.7); Absolute Neutrophil Count 12.95 10^3/uL (1.2-6.7)
[2024-08-23 19:34] LABS: ALT 32 U/L (16-63); AST 27 U/L (15-37); Alkaline Phosphatase 128 U/L (46-116); Anion Gap 10.9 mmol/L (3-11); BUN 22 mg/dL (7-18); Bilirubin, Total 0.4 mg/dL (0.2-1.0); CO2 29.1 mmol/L (21.0-32.0); CREATININE 0.9 mg/dL (0.70-1.30); Chloride 93 mmol/L (98-107); Estimated GFR 90.18 (mL/min/1.73m2); Glucose 169 mg/dL (74-106); NT-proBNP 1175 pg/mL (<300); Potassium 3.3 mmol/L (3.5-5.1); Sodium 133 mmol/L (136-145); Total Protein 6.6 g/dL (6.4-8.2)
== END 2024-08-23 18:06 | disposition home or self-care (01) ==
LOC: LBN 18:05
PROVIDERS: PCP Legal Medicine; Visit Provider Nurse Practitioner Gerontology
DX: I11.0 Hypertensive heart disease with heart failure (principal); E87.6 Hypokalemia
CPT/HCPCS: 80053; 83880; 85025

== ENCOUNTER 2024-09-02 17:50 | Outpatient (REF) | payer MEDICARE, MEDICAID, SELFPAY ==
[2024-09-02 19:46] LABS: Abs Immature Grans 0.20 10^3/uL (0.0-0.06); HCT 37.3 % (40.0-50.0); HGB 12.6 g/dL (13.5-17.5); Immature Grans % 1.7 %; MCH 34.6 pg (27.0-33.0); MCHC 33.8 % (32.0-36.0); MCV 103 fL (80-95); MPV 11.5 fL (8.0-11.0); Platelet Count 242 10^3/uL (130-400); RBC 3.64 10^6/uL (4.36-5.78); RDW 13.5 % (11.8-14.1); RDW-SD 51.3 fL; WBC 11.64 10^3/uL (4.4-10.8)
[2024-09-02 20:05] LABS: ALT 31 U/L (16-63); AST 27 U/L (15-37); Albumin 3.1 g/dL (3.4-5.0); Alkaline Phosphatase 100 U/L (46-116); Anion Gap 7.7 mmol/L (3-11); BUN 19 mg/dL (7-18); Bilirubin, Total 0.6 mg/dL (0.2-1.0); CO2 32.3 mmol/L (21.0-32.0); Calcium 8.9 mg/dL (8.5-10.1); Chloride 92 mmol/L (98-107); Estimated GFR 101.93 (mL/min/1.73m2); Glucose 121 mg/dL (74-106); NT-proBNP 849 pg/mL (<300); Potassium 3.6 mmol/L (3.5-5.1); Sodium 132 mmol/L (136-145); Total Protein 6.8 g/dL (6.4-8.2)
== END 2024-09-02 17:51 | disposition home or self-care (01) ==
LOC: LBN 17:50
PROVIDERS: PCP Legal Medicine; Visit Provider Nurse Practitioner Gerontology
DX: I50.22 Chronic systolic (congestive) heart failure (principal); D63.1 Anemia in chronic kidney disease; E87.8 Other disorders of electrolyte and fluid balance, not elsewhere classified
CPT/HCPCS: 80053; 83880; 85025

== ENCOUNTER 2024-09-09 16:39 | Outpatient (REF) | payer MEDICARE, MEDICAID, SELFPAY ==
[2024-09-09 18:49] LABS: Abs Immature Grans 0.11 10^3/uL (0.0-0.06); HCT 37.1 % (40.0-50.0); HGB 12.1 g/dL (13.5-17.5); Immature Grans % 1.1 %; MCH 34.2 pg (27.0-33.0); MCHC 32.6 % (32.0-36.0); MCV 105 fL (80-95); MPV 11.3 fL (8.0-11.0); Platelet Count 230 10^3/uL (130-400); RBC 3.54 10^6/uL (4.36-5.78); RDW 13.8 % (11.8-14.1); RDW-SD 53.5 fL; WBC 9.59 10^3/uL (4.4-10.8)
[2024-09-09 19:02] LABS: ALT 25 U/L (16-63); AST 22 U/L (15-37); Albumin 3.1 g/dL (3.4-5.0); Alkaline Phosphatase 94 U/L (46-116); Anion Gap 9.0 mmol/L (3-11); BUN 18 mg/dL (7-18); Bilirubin, Total 0.4 mg/dL (0.2-1.0); CO2 32.0 mmol/L (21.0-32.0); Calcium 8.9 mg/dL (8.5-10.1); Chloride 98 mmol/L (98-107); Estimated GFR 93.45 (mL/min/1.73m2); Glucose 124 mg/dL (74-106); Magnesium 2.0 mg/dL (1.8-2.4); NT-proBNP 1206 pg/mL (<300); Potassium 3.3 mmol/L (3.5-5.1); Sodium 139 mmol/L (136-145); Total Protein 6.7 g/dL (6.4-8.2)
== END 2024-09-09 16:40 | disposition home or self-care (01) ==
LOC: LBN 16:39
PROVIDERS: PCP Legal Medicine; Visit Provider Nurse Practitioner Gerontology
DX: I50.22 Chronic systolic (congestive) heart failure (principal); E87.8 Other disorders of electrolyte and fluid balance, not elsewhere classified; E83.42 Hypomagnesemia; D63.1 Anemia in chronic kidney disease
CPT/HCPCS: 80053; 83735; 83880; 85025

== ENCOUNTER 2024-09-13 19:32 | Outpatient (REF) | payer MEDICARE, MEDICAID, SELFPAY ==
[2024-09-13 20:03] LABS: Abs Immature Grans 0.12 10^3/uL (0.0-0.06); HCT 38.1 % (40.0-50.0); HGB 12.3 g/dL (13.5-17.5); Immature Grans % 1.0 %; MCH 34.3 pg (27.0-33.0); MCHC 32.3 % (32.0-36.0); MCV 106 fL (80-95); MPV 11.2 fL (8.0-11.0); Platelet Count 242 10^3/uL (130-400); RBC 3.59 10^6/uL (4.36-5.78); RDW 13.9 % (11.8-14.1); RDW-SD 54.4 fL; WBC 12.52 10^3/uL (4.4-10.8)
[2024-09-13 20:31] LABS: Macrocytosis 1+
[2024-09-13 20:33] LABS: ALT 27 U/L (16-63); AST 23 U/L (15-37); Albumin 3.1 g/dL (3.4-5.0); Alkaline Phosphatase 92 U/L (46-116); Anion Gap 9.1 mmol/L (3-11); BUN 20 mg/dL (7-18); Bilirubin, Total 0.4 mg/dL (0.2-1.0); CO2 32.9 mmol/L (21.0-32.0); Calcium 9.1 mg/dL (8.5-10.1); Chloride 96 mmol/L (98-107); Estimated GFR 97.29 (mL/min/1.73m2); Glucose 112 mg/dL (74-106); NT-proBNP 1324 pg/mL (<300); Potassium 3.0 mmol/L (3.5-5.1); Sodium 138 mmol/L (136-145); Total Protein 6.6 g/dL (6.4-8.2)
== END 2024-09-13 19:33 | disposition home or self-care (01) ==
LOC: LBN 19:32
PROVIDERS: PCP Legal Medicine; Visit Provider Nurse Practitioner Gerontology
DX: D63.1 Anemia in chronic kidney disease (principal)
CPT/HCPCS: 80053; 83880; 85025

== ENCOUNTER 2024-09-20 15:09 | Outpatient (REF) | payer MEDICARE, MEDICAID, SELFPAY ==
[2024-09-20 15:05] LABS: Abs Immature Grans 0.23 10^3/uL (0.0-0.06); HCT 40.3 % (40.0-50.0); HGB 13.5 g/dL (13.5-17.5); Immature Grans % 1.6 %; MCH 34.3 pg (27.0-33.0); MCHC 33.5 % (32.0-36.0); MCV 102 fL (80-95); MPV 11.9 fL (8.0-11.0); Platelet Count 232 10^3/uL (130-400); RBC 3.94 10^6/uL (4.36-5.78); RDW 13.1 % (11.8-14.1); RDW-SD 48.6 fL; WBC 14.33 10^3/uL (4.4-10.8)
[2024-09-20 15:24] LABS: Anion Gap 13.9 mmol/L (3-11); BUN 27 mg/dL (7-18); CO2 27.1 mmol/L (21.0-32.0); Calcium 9.2 mg/dL (8.5-10.1); Chloride 96 mmol/L (98-107); Estimated GFR 90.18 (mL/min/1.73m2); Glucose 113 mg/dL (74-106); NT-proBNP 2554 pg/mL (<300); Sodium 137 mmol/L (136-145)
[2024-09-20 15:28] LABS: Potassium 2.9 mmol/L (3.5-5.1)
== END 2024-09-20 15:10 | disposition home or self-care (01) ==
LOC: LBN 15:09
PROVIDERS: PCP Legal Medicine; Visit Provider Nurse Practitioner Gerontology
DX: I50.22 Chronic systolic (congestive) heart failure (principal); D63.1 Anemia in chronic kidney disease; E87.8 Other disorders of electrolyte and fluid balance, not elsewhere classified
CPT/HCPCS: 80048; 83880; 85025

== ENCOUNTER 2024-09-23 17:39 | Outpatient (REF) | payer MEDICARE, MEDICAID, SELFPAY ==
[2024-09-23 17:49] LABS: Abs Immature Grans 0.23 10^3/uL (0.0-0.06); HCT 39.8 % (40.0-50.0); HGB 13.1 g/dL (13.5-17.5); Immature Grans % 1.8 %; MCH 33.9 pg (27.0-33.0); MCHC 32.9 % (32.0-36.0); MCV 103 fL (80-95); MPV 12.2 fL (8.0-11.0); Platelet Count 223 10^3/uL (130-400); RBC 3.87 10^6/uL (4.36-5.78); RDW 13.3 % (11.8-14.1); RDW-SD 49.9 fL; WBC 12.86 10^3/uL (4.4-10.8)
[2024-09-23 18:11] LABS: Anion Gap 13.7 mmol/L (3-11); BUN 23 mg/dL (7-18); CO2 26.3 mmol/L (21.0-32.0); Calcium 9.3 mg/dL (8.5-10.1); Chloride 97 mmol/L (98-107); Estimated GFR 93.45 (mL/min/1.73m2); Glucose 99 mg/dL (74-106); NT-proBNP 1433 pg/mL (<300); Potassium 3.5 mmol/L (3.5-5.1); Sodium 137 mmol/L (136-145)
== END 2024-09-23 17:40 | disposition home or self-care (01) ==
LOC: LBN 17:39
PROVIDERS: PCP Legal Medicine; Visit Provider Nurse Practitioner Gerontology
DX: I50.22 Chronic systolic (congestive) heart failure (principal); E87.8 Other disorders of electrolyte and fluid balance, not elsewhere classified; D63.1 Anemia in chronic kidney disease
CPT/HCPCS: 80048; 83880; 85025

== ENCOUNTER 2024-09-27 18:17 | Outpatient (REF) | payer MEDICARE, MEDICAID, SELFPAY ==
[2024-09-27 18:32] LABS: Abs Immature Grans 0.26 10^3/uL (0.0-0.06); HCT 42.6 % (40.0-50.0); HGB 14.1 g/dL (13.5-17.5); Immature Grans % 2.2 %; MCH 34.7 pg (27.0-33.0); MCHC 33.1 % (32.0-36.0); MCV 105 fL (80-95); MPV 12.4 fL (8.0-11.0); Platelet Count 211 10^3/uL (130-400); RBC 4.06 10^6/uL (4.36-5.78); RDW 13.2 % (11.8-14.1); RDW-SD 51.4 fL; WBC 12.01 10^3/uL (4.4-10.8)
[2024-09-27 18:56] LABS: Anion Gap 13.7 mmol/L (3-11); BUN 37 mg/dL (7-18); CO2 24.3 mmol/L (21.0-32.0); Calcium 9.7 mg/dL (8.5-10.1); Chloride 97 mmol/L (98-107); Estimated GFR 58.01 (mL/min/1.73m2); Glucose 124 mg/dL (74-106); NT-proBNP 1666 pg/mL (<300); Potassium 4.4 mmol/L (3.5-5.1); Sodium 135 mmol/L (136-145)
== END 2024-09-27 18:18 | disposition home or self-care (01) ==
LOC: LBN 18:17
PROVIDERS: PCP Legal Medicine; Visit Provider Nurse Practitioner Gerontology
DX: I50.89 Other heart failure (principal); N39.0 Urinary tract infection, site not specified; E87.8 Other disorders of electrolyte and fluid balance, not elsewhere classified; D63.1 Anemia in chronic kidney disease
CPT/HCPCS: 80048; 83880; 85025